=== PATIENT | male | born 1950 | race Caucasian/White ===

== ENCOUNTER 2024-11-09 14:50 | Emergency (ER) | payer SELFPAY ==
--- NOTE | ~2024-11-09 | XR_ITS ---
EXAMINATION: XR chest 1V DATE: 11/09/2024 16:51 INDICATION: Congestive heart failure. TECHNIQUE: A single frontal view of the chest was obtained. COMPARISON: None. FINDINGS: There are airspace opacities at the lung bases. There is a small left pleural effusion. No pneumothorax. Cardiomegaly is noted. Median sternotomy fixation and mediastinal surgical clips are se en, likely from prior coronary artery bypass grafting. There is a left chest pacer/defibrillator with leads in right atrium, right ventricle, and coronary sinus. IMPRESSION: 1. Small left pleural effusion. 2. Airspace opacities at the lung bases, likely atelectasis. 3. Cardiomegaly. Reviewed, dictated and finalized at location A. ULATION MANAGER
--- NOTE | ~2024-11-09 | CT_ITS ---
CT scan of the right lower extremity Clinical history cystic masses distal thigh/medial knee TECHNIQUE: Following intravenous administration of 100 cc of Omnipaque 350 contrast, axial imaging of the right lower extremity was performed from the level of the right pelvis through the right knee. S agittal and coronal reformatted images were constructed. Dose reduction technique was used on this sc an by utilizing automated exposure control and iterative reconstruction technique. The dose-length pr oduct (DLP) was 1295.36 mGy-cm. FINDINGS: No acute fracture or dislocation seen. Total knee arthroplasty hardware in place, without e vidence of hardware complication. Right hip joint is intact. No joint effusion evident. Visualized musculature in the right thigh is essentially unremarkable. Possible mild atrophic changes of the hamstring musculature. There is diffuse subcutaneous soft tissue edema of the thigh. At the medial aspect of the distal thig h, there is a 4.0 x 2.6 x 6.9 cm peripherally enhancing ovoid fluid collection (axial image 194 for e xample). This is just superficial to the distal sartorius muscle belly. There is a probable smaller c ystic mass/fluid collection medial to the level of the knee measuring approximately 1.8 cm in maximum diameter, partially obscured by streak artifact (axial image 235). Small amount of fluid are present along fascial planes in the thigh. There are extensive atherosclerotic changes of the arterial struc tures. Right inguinal hernia contains mesenteric fat and ascitic fluid. Moderate to large amount of ascites present in the visualized pelvis. IMPRESSION: 4.0 x 2.6 x 6.9 cm peripherally enhancing ovoid fluid collection at the medial aspect of the distal t high. Probable additional 1.8 cm cystic mass/fluid collection at the medial aspect of the knee, parti ally obscured by streak artifact. Precise etiology is unclear. Consider abscess versus seroma or othe r cystic collections. Diffuse subcutaneous soft tissue edema thigh, nonspecific. Moderate to large amount of pelvic ascites with right inguinal hernia containing ascitic fluid and fa t. Total knee arthroplasty in place. Reviewed, dictated and finalized at location M. PUMPER IMPRESSION: 4.0 x 2.6 x 6.9 cm peripherally enhancing ovoid fluid collection at the medial aspect of the distal thigh. Probable additional 1.8 cm cystic mass/fluid collec tion at the medial aspect of the knee, partially obscured by streak artifact. P recise etiology is unclear. Consider abscess versus seroma or other cystic day ections. Diffuse subcutaneous soft tissue edema thigh, nonspecific. Moderate to large amount of pelvic ascites with right inguinal hernia containin g ascitic fluid and fat. Total knee arthroplasty in place.
--- NOTE | ~2024-11-09 | US_ITS ---
RIGHT LOWER EXTREMITY VENOUS ULTRASOUND Ordering provider: Mel Meredith History: . Right inner thigh pain . Comparison: None. FINDINGS: --COMMON FEMORAL: Patent and free of thrombus. Normal compressibility, phasic flow and augmentation. --PROXIMAL SUPERFICIAL FEMORAL: Patent and free of thrombus. Normal compressibility, phasic flow and augmentation. --DISTAL SUPERFICIAL FEMORAL: Patent and free of thrombus. Normal compressibility, phasic flow and au gmentation. --POPLITEAL: Patent and free of thrombus. Normal compressibility, phasic flow and augmentation. --POSTERIOR TIBIAL: Patent and free of thrombus. Normal compressibility, phasic flow and augmentation . Cystic area in the distal upper leg measuring 3.2 x 6.8 x 2.5 cm. Cystic area in the medial knee is also noted measuring 2.8 x 1 x 1.8 cm. IMPRESSION: Negative right lower extremity venous US. No deep vein thrombosis. Cystic areas in the lower thigh and medial knee. Reviewed, dictated and finalized at location A. HELPER
[2024-11-09 15:55] VITALS: BP 129/79; PULSE 74; RESP 16; TEMP 36.6; O2SAT 99
--- NOTE | 2024-11-09 15:59 | ED.LOWEXIN ---
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 Patient is at rehab facility and they voiced concerns that the patient may have a DVT given pain to the right inner thigh for a couple of days. Patient denies history of DVT. Reports of extremity edema which is unchanged from baseline. Per chart review he is not on a diuretic and states he should be. Denies hx of CHF. He denies chest pain, lightheadedness or dizziness hemoptysis. Reports shortness of breath that is unchanged from his baseline. GENERAL: Well-appearing, well-nourished, and in no acute distress. HEAD: Normocephalic, atraumatic. CHEST: Clear to auscultation. ?No respiratory distress. EXT: 3+ pitting edema to BLE, tenderness to the right inner thigh on palpation, edema to RLE extends to proximal thigh HEART: Regular rate and rhythm.? NEURO: ?Alert and oriented x3. Patient screened in triage and initial orders placed.? ?Additional care and disposition to be based upon?diagnostic testing and treatment. <HERNAN Rubin Last Filed: 11/09/24 16:01> Related Data Allergies/Adverse Reactions: Allergies Allergy/AdvReac Type Severity Reaction Status Date / Time No Known Allergies Allergy Mild Unverified 11/28/11 18:15 <HERNAN Rubin Last Filed: 11/09/24 16:01> Exam Narrative: APPEARANCE: No apparent distress. Head: atraumatic. EYES: EOMI, NOSE: Atraumatic NECK: Trachea midline RESPIRATORY: No increased rate of breathing CTAB CARDIOVASCULAR: RRR, peripheral edema of the lower extremities there are 2 areas of fluctuance and tenderness over the inside of the thigh and right knee. No overlying erythema or cellulitic changes. ABDOMINAL: Non-distended MUSCULOSKELETAl: No obvious deformities NEURO: Alert. Moving 4/4 extremities SKIN:: Warm, dry. Normal color PSYCHIATRIC: Normal affect <Phill Wellington MD - Last Filed: 11/10/24 06:49> Course Vital Signs Vital signs: Vital Signs Temperature 97.9 F 11/09/24 15:55 Pulse Rate 74 11/09/24 15:55 Respiratory Rate 16 11/09/24 15:55 Blood Pressure 129/79 11/09/24 15:55 Pulse Oximetry 99 11/09/24 15:55 Oxygen Delivery Room Air 11/09/24 15:55 Temperature 97.6 F 11/09/24 19:43 Pulse Rate 84 11/10/24 03:54 Respiratory Rate 18 11/10/24 03:54 Blood Pressure 148/74 H 11/10/24 03:54 Pulse Oximetry 96 11/10/24 03:54 Oxygen Delivery Room Air 11/09/24 15:55 <Mel Meredith PA-C - Last Filed: 11/09/24 16:01> Vital Signs Temperature 97.9 F 11/09/24 15:55 Pulse Rate 74 11/09/24 15:55 Respiratory Rate 16 11/09/24 15:55 Blood Pressure 129/79 11/09/24 15:55 Pulse Oximetry 99 11/09/24 15:55 Oxygen Delivery Room Air 11/09/24 15:55 Temperature 97.6 F 11/09/24 19:43 Pulse Rate 84 11/10/24 03:54 Respiratory Rate 18 11/10/24 03:54 Blood Pressure 148/74 H 11/10/24 03:54 Pulse Oximetry 96 11/10/24 03:54 Oxygen Delivery Room Air 11/09/24 15:55 <Phill Wellington MD - Last Filed: 11/10/24 06:49> MDM - Extremity Injury (Lower) MDM Narrative Medical decision making narrative: -Course: 74-year-old male presenting with leg pain. Physical exam shows 2 fluctuant masses in the soft subcutaneous tissue of his leg. These are confirmed on ultrasound. CT read them as possible seroma versus abscess. Due to diagnostic uncertainty they were drained under sterile conditions. Return of serous fluid. Final diagnosis seroma. Patient discharged. He is educated days these may recur. <Phill Wellington MD - Last Filed: 11/10/24 06:49> Lab Data Result diagrams: 11/09/24 16:45 11/09/24 16:45 <Mel Meredith PA-C - Last Filed: 11/09/24 16:01> Labs: Lab Results 11/09/24 Range/Units 16:45 WBC 6.5 (4.5-10.0) K/mm3 RBC 4.71 (4.6-6.20) M/mm3 Hgb 10.8 L (14.0-18.0) g/dL Hct 35.6 L (42.0-52.0) % MCV 75.6 L (80-100) fl MCH 22.9 L (26-34) pg MCHC 30.3 L (32-36) g/dl RDW 22.6 H (11.5-14.5) % Plt Count 179 (150-375) k/mm3 MPV 9.4 (7.4-10.4) fl Immature Gran % (Auto) 0.3 (0-0.5) % Neut % (Auto) 70.6 (45.5-73.1) % Lymph % (Auto) 14.4 L (18.3-44.2) % [place] % (Auto) 11.0 H (2.6-8.5) % Eos % (Auto) 3.1 (0-4.4) % Baso % (Auto) 0.6 (0.2-1.2) % Lymph # (Auto) 0.93 (0.9-3.2) K/mm3 [place] # (Auto) 0.7 H (0.1-0.6) K/mm3 Eos # (Auto) 0.2 (0-0.3) K/mm3 Baso # (Auto) 0.0 (0.0-0.1) K/mm3 Abs Immat Gran (auto) 0.02 (0.00-0.031) K/mm3 Absolute Neuts (auto) 4.6 (1.3-6.7) K/mm3 Absolute Nucleated RBC 0.000 (0.0-0.012) K/mm3 Nucleated RBC % 0.0 (0.0-0.2) % Platelet Estimate Adequate (Adequate) Anisocytosis 1+ Ovalocytes 1+ Schistocytes None seen PT 16.8 H (11.1-14.7) Seconds INR 1.3 APTT 31.5 (22.3-36.8) Seconds Sodium 137 (137-145) mmol/L Potassium 3.6 (3.4-5.0) mmol/L Chloride 106 (98-107) mmol/L Carbon Dioxide 29 (22-30) mmol/L Anion Gap 2 L (4-12) mmol/L BUN 9 (9-20) mg/dL Creatinine 0.60 L (0.7-1.3) mg/dL Estim Creat Clear Calc 111 ml/min Estimated GFR > 60 (59 - ) Glucose 112 H (65-110) mg/dL Calcium 8.0 L (8.4-10.2) mg/dL NT-Pro-B Natriuret Pep 2660 H (19.9-100) pg/mL <Mel Meredith PA-C - Last Filed: 11/09/24 16:01> Lab Results 11/09/24 Range/Units 16:45 WBC 6.5 (4.5-10.0) K/mm3 RBC 4.71 (4.6-6.20) M/mm3 Hgb 10.8 L (14.0-18.0) g/dL Hct 35.6 L (42.0-52.0) % MCV 75.6 L (80-100) fl MCH 22.9 L (26-34) pg MCHC 30.3 L (32-36) g/dl RDW 22.6 H (11.5-14.5) % Plt Count 179 (150-375) k/mm3 MPV 9.4 (7.4-10.4) fl Immature Gran % (Auto) 0.3 (0-0.5) % Neut % (Auto) 70.6 (45.5-73.1) % Lymph % (Auto) 14.4 L (18.3-44.2) % [place] % (Auto) 11.0 H (2.6-8.5) % Eos % (Auto) 3.1 (0-4.4) % Baso % (Auto) 0.6 (0.2-1.2) % Lymph # (Auto) 0.93 (0.9-3.2) K/mm3 [place] # (Auto) 0.7 H (0.1-0.6) K/mm3 Eos # (Auto) 0.2 (0-0.3) K/mm3 Baso # (Auto) 0.0 (0.0-0.1) K/mm3 Abs Immat Gran (auto) 0.02 (0.00-0.031) K/mm3 Absolute Neuts (auto) 4.6 (1.3-6.7) K/mm3 Absolute Nucleated RBC 0.000 (0.0-0.012) K/mm3 Nucleated RBC % 0.0 (0.0-0.2) % Platelet Estimate Adequate (Adequate) Anisocytosis 1+ Ovalocytes 1+ Schistocytes None seen PT 16.8 H (11.1-14.7) Seconds INR 1.3 APTT 31.5 (22.3-36.8) Seconds Sodium 137 (137-145) mmol/L Potassium 3.6 (3.4-5.0) mmol/L Chloride 106 (98-107) mmol/L Carbon Dioxide 29 (22-30) mmol/L Anion Gap 2 L (4-12) mmol/L BUN 9 (9-20) mg/dL Creatinine 0.60 L (0.7-1.3) mg/dL Estim Creat Clear Calc 111 ml/min Estimated GFR > 60 (59 - ) Glucose 112 H (65-110) mg/dL Calcium 8.0 L (8.4-10.2) mg/dL NT-Pro-B Natriuret Pep 2660 H (19.9-100) pg/mL <Phill Wellington MD - Last Filed: 11/10/24 06:49> Discharge Plan Discharge Clinical Impression: Seroma <Mel Meredith PA-C - Last Filed: 11/09/24 16:01> Patient Disposition: Home, Self-Care <Mel Meredith PA-C - Last Filed: 11/09/24 16:01> Condition: Stable <Mel Meredith PA-C - Last Filed: 11/09/24 16:01> Instructions: Antibiotic Form, Seroma (DC) <Mel Meredith PA-C - Last Filed: 11/09/24 16:01> Additional Instructions: You were seen in the emergency department for leg pain. Your found to have 2 cysts filled with fluid. These were drained via needle aspiration. No evidence of infection at this time. The cysts may recur and become painful. Please follow-up with your primary care physician if needed. If your leg becomes red, painful or you develop fevers please return to the ED for re-evaluation. <Mel Meredith PA-C - Last Filed: 11/09/24 16:01> Patient Language: Slovak <Mel Meredith PA-C - Last Filed: 11/09/24 16:01> Follow-up/Referrals: PHYSICIAN,DESPATCHING AND RECEIVING CLERK [Primary Care Provider] - <Mel Meredith PA-C - Last Filed: 11/09/24 16:01>
--- NOTE | 2024-11-09 16:00 | ECG_ITS ---
Test Date: 2024-11-09 16:45:46 Measurements Intervals [place] Rate: 72 P: 4 MN: 130 QRS: -84 QRSD: 150 T: 110 QT: 443 QTc: 488 Interpretive Statements ELECTRONIC VENTRICULAR PACEMAKER ABNORMAL RHYTHM ECG No previous ECG available for comparison Electronically Signed On 11-13-2024 14:36:00 [employer]OLD SHIFTER by Jayden Clemons M.D.
[2024-11-09 16:51] LABS: Basophils Percent Auto 0.6 % (0.2-1.2); Eosinophils Absolute Auto 0.2 K/mm3 (0-0.3); Eosinophils Percent Auto 3.1 % (0-4.4); Hematocrit 35.6 % (42.0-52.0); Hemoglobin 10.8 g/dL (14.0-18.0); Immature Granulocyte Absolute 0.02 K/mm3 (0.00-0.031); Immature Granulocyte Percent A 0.3 % (0-0.5); Lymphocytes Absolute Auto 0.93 K/mm3 (0.9-3.2); Lymphocytes Percent Auto 14.4 % (18.3-44.2); Mean Corpuscular HGB Conc 30.3 g/dl (32-36); Mean Corpuscular Hemoglobin 22.9 pg (26-34); Mean Corpuscular Volume 75.6 fl (80-100); Mean Platelet Volume 9.4 fl (7.4-10.4); Monocytes Absolute Auto 0.7 K/mm3 (0.1-0.6); Neutrophils Absolute Auto 4.6 K/mm3 (1.3-6.7); Neutrophils Percent Auto 70.6 % (45.5-73.1); Platelet Count Result 179 k/mm3 (150-375); Red Blood Count 4.71 M/mm3 (4.6-6.20); Red Cell Distribution Width 22.6 % (11.5-14.5); White Blood Count 6.5 K/mm3 (4.5-10.0)
[2024-11-09 17:01] LABS: Anion Gap 2 mmol/L (4-12); Blood Urea Nitrogen 9 mg/dL (9-20); Carbon Dioxide 29 mmol/L (22-30); Chloride 106 mmol/L (98-107); Estimated CRCL calculation 111 ml/min; Estimated Glomerular Filt Rate > 60; Glucose 112 mg/dL (65-110); Potassium 3.6 mmol/L (3.4-5.0); Sodium 137 mmol/L (137-145)
[2024-11-09 17:02] LABS: INR 1.3; Prothrombin Time 16.8 Seconds (11.1-14.7)
[2024-11-09 17:03] LABS: Partial Thromboplastin Time 31.5 Seconds (22.3-36.8)
[2024-11-09 17:09] LABS: Anisocytosis 1+; Ovalocytes 1+; Platelet Estimate Adequate (Adequate)
[2024-11-09 17:10] LABS: NT Pro B Type Natriuretic Pept 2660 pg/mL (19.9-100); Schistocytes None Seen
[2024-11-09 19:43] VITALS: BP 135/80; PULSE 78; RESP 16; TEMP 36.4; O2SAT 100
[2024-11-09 23:37] VITALS: BP 150/86; PULSE 75; RESP 16; O2SAT 99
[2024-11-10 00:45] VITALS: BP 160/92; PULSE 85; RESP 16; O2SAT 97
[2024-11-10 03:54] VITALS: BP 148/74; PULSE 84; RESP 18; O2SAT 96
[2024-11-10 06:46] VITALS: BP 142/78; PULSE 84; RESP 17; O2SAT 98
[2024-11-10 07:50] VITALS: BP 148/80; PULSE 70; RESP 16; O2SAT 92
--- OUTSIDE RECORDS SUMMARY | 2024-11-17 03:41 | XMS_ITS | Continuity of Care Document ---
Author Name [facility] Organization [facility] Care Team Providers Care Psychometric Examiner Name Role Phone [facility] Unavailable Unavailable Problems Combined list of problems from Department of Defense and [facility] Affairs facilities. It does not include entries that were removed or entered in error. 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 [facility] Asthma (SNOMED CT 420040250) Active Condition [facility] Coronary artery disease Active Condition [facility] Diabetes mellitus with neuropathy Active Condition [facility] Erectile dysfunction associated with type 2 diabetes mellitus Active Condition [facility] Exposure to potentially hazardous substance Active Condition [facility] Fatty liver Active Condition [facility] Gastro-esophageal reflux disease (SNOMED CT 658725513) Active Condition [facility] Heart failure Active Condition [facility] History of arthroplasty of right knee Active Condition [facility] History of coronary artery bypass grafting Active Condition [facility] History of left total knee replacement Active Condition [facility] Hyperlipidemia (SNOMED CT 62769555) Active Condition [facility] Hypertension (SNOMED CT 52507257) Active Condition [facility] Low back pain Active Condition [facility] Neoplasm of pituitary gland (SNOMED CT 063239892) Active Condition [facility] Obesity Active Condition [facility] Obstructive Sleep Apnea of Adult (SCT 0757788657522) Active Condition [facility] Osteoarthritis of knee Active Condition [facility] Patellofemoral syndrome of right knee Active Condition [facility] Peptic Ulcer Disease * (ICD-9-CM 533.90) Active Condition [facility] Thrombocytopenia Active Condition [facility] Diagnosis: ICD-10-CM G47.33 Obstructive sleep apnea (adult) (pediatric) Active Diagnosis [facility] Diagnosis: ICD-10-CM D69.6 Thrombocytopenia, unspecified Active Diagnosis [facility] Diagnosis: ICD-10-CM 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 Active Diagnosis [facility] Diagnosis: ICD-10-CM 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 Admit Reason: CAD S/P CABG Active Diagnosis [facility] Diagnosis: ICD-10-CM R06.00 Dyspnea, unspecified Active Diagnosis [facility] Diagnosis: ICD-10-CM I34.0 Nonrheumatic mitral (valve) insufficiency Active Diagnosis [facility] Diagnosis: ICD-10-CM I50.9 Heart failure, unspecified Active Diagnosis [facility] Diagnosis: ICD-10-CM H25.813 Combined forms of age-related cataract, bilateral Active Diagnosis [facility] Diagnosis: ICD-10-CM E23.7 Disorder of pituitary gland, unspecified Active Diagnosis [facility] Diagnosis: ICD-10-CM B35.1 Tinea unguium Active Diagnosis 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 Active Diagnosis [facility] Diagnosis: ICD-10-CM E11.9 Type 2 diabetes mellitus without complications Active Diagnosis [facility] Diagnosis: ICD-10-CM M25.569 Pain in unspecified knee Active Diagnosis [facility] Diagnosis: ICD-10-CM M48.062 Spinal stenosis, lumbar region with neurogenic claudication Active Diagnosis [facility] Diagnosis: ICD-10-CM Z01.20 Encounter for dental exam and cleaning w/o abnormal findings Active Diagnosis [facility] Diagnosis: ICD-10-CM Z71.89 Other specified counseling Active Diagnosis [facility] Diagnosis: ICD-10-CM K03.6 Deposits [accretions] on teeth Active Diagnosis [facility] Diagnosis: ICD-10-CM Z96.652 Presence of left artificial knee joint Active Diagnosis [facility] Diagnosis: ICD-10-CM L85.9 Epidermal thickening, unspecified Active Diagnosis [facility] Diagnosis: ICD-10-CM Z23 Encounter for immunization Active Diagnosis [facility] Diagnosis: ICD-10-CM E23.6 Other disorders of pituitary gland Active Diagnosis [facility] Diagnosis: ICD-10-CM D35.2 Benign neoplasm of pituitary gland Active Diagnosis [facility] Diagnosis: ICD-10-CM 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 Active Diagnosis [facility] Diagnosis: ICD-10-CM 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, lumbar region Active Diagnosis [facility] Diagnosis: ICD-10-CM K02.62 Dental caries on smooth surface penetrating into dentin Active Diagnosis [facility] Diagnosis: ICD-10-CM M54.51 Vertebrogenic low back pain Active Diagnosis [facility] Diagnosis: ICD-10-CM H11.32 Conjunctival hemorrhage, left eye Active Diagnosis [facility] Diagnosis: ICD-10-CM E11.8 Type 2 diabetes mellitus with unspecified complications Active Diagnosis [facility] Diagnosis: ICD-10-CM E11.3292 Type 2 diab with mild nonp rtnop without mclr edema, l eye Active Diagnosis [facility] Medications Combined list of outpatient medications from Department of Defense and [facility] Affairs facilities.Medications provided include 1) outpatient medications from the last 15 months, and 2) patient-reported medications. Medication Details Route Status Patient Instructions Prescription Expires Prescription Number Last Dispense Date Ordering Provider Order Date Order Qty Source ALBUTEROL SO4 90MCG/ACTUA T (CFC-F) INHL,ORAL,8 .5GM INHALE 1 PUFF BY ORAL INHALATI ON FOUR TIMES A DAY NEEDED FOR BREATHIN G. SHAKE WELL. RINSE MOUTHPIE CE FREQUENT LY TO PREVENT CLOGGING . RESPIR ATORY (INHAL ATION) ACTIVE 04/08/2025 [id number] 4 FRANCIS OQUENDO 2023 2 [facility] AMMONIUM LACTATE 12% CREAM,TOP APPLY LIGHTLY TO AFFECTED AREA(S) TWICE A DAY EXTERNAL USE ONLY. DO NOT APPLY TO RED, ITCHY, OR SORE SKIN. DAVIDA L DISCONT INUED BY PROVIDE R 02/11/2025 [id number] 4 SA JAYJAY BRAGG 2023 140 [facility] ASPIRIN 81MG TAB,EC TAKE ONE TABLET BY MOUTH ONCE A DAY TAKE WITH FOOD. ORAL ACTIVE 08/23/2025 [id number] 4 Sofy REDDY 2023 120 [facility] ASPIRIN 81MG TAB,EC TAKE ONE TABLET BY MOUTH ONCE A DAY TAKE WITH FOOD. ORAL DISCONT INUED BY PROVIDE R 06/08/2025 [id number] 4 MARY SERNA 2023 120 [facility] ATORVASTATI N CA 40MG TAB TAKE ONE AND ONE-HALF TABLETS BY MOUTH EVERY EVENING ORAL DISCONT INUED (EDIT) 06/08/2025 [id number] 4 MARY SERNA 2023 135 [facility] ATORVASTATI N CA 80MG TAB TAKE ONE TABLET BY MOUTH EVERY EVENING ORAL ACTIVE 08/23/2025 [id number] 4 Sofy REDDY 2023 90 [facility] ATORVASTATI N CA 80MG TAB TAKE ONE-HALF TABLET BY MOUTH EVERY EVENING FOR HIGH CHOLESTE ROL ORAL DISCONT INUED (EDIT) 04/08/2025 [id number] 4 FRANCIS OQUENDO 2023 45 [facility] ATORVASTATI N CA 80MG TAB TAKE ONE-HALF TABLET BY MOUTH EVERY EVENING FOR HIGH CHOLESTE ROL ORAL DISCONT INUED 03/22/2024 [id number] 4 SAAD YOUNGER 2022 45 [facility] BUMETANIDE 1MG TAB TAKE ONE-HALF TABLET BY MOUTH ONCE A DAY NEEDED PER PROVIDER INSTRUCT IONS ORAL DISCONT INUED BY FLORIAN R 06/08/2025 [id number] 4 MARY SERNA 2023 45 [facility] CARBOXYMETH YLCELLULOSE NA 0.5% SOLN,OPH INSTILL 1 DROP IN BOTH EYES FOUR TIMES A DAY NEEDED FOR DRY EYE(S) OPHTHA LMIC ACTIVE 05/13/2025 [id number] 4 ESTELA ESPINOZA 2023 30 [facility] CARVEDILOL 6.25MG TAB TAKE ONE-HALF TABLET BY MOUTH TWICE A DAY HEART FAILURE TAKE WITH FOOD. ORAL ACTIVE 06/08/2025 [id number] 4 MARY SERNA 2023 90 [facility] CLOPIDOGREL BISULFATE 75MG TAB TAKE ONE TABLET BY MOUTH ONCE A DAY ORAL ACTIVE 08/23/2025 [id number] 4 Sofy REDDY 2023 90 [facility] DEXTROSE 24GM/31GM SQUEEZE TUBE TAKE 1 TUBE BY MOUTH NEEDED FOR LOW BLOOD SUGAR REPEAT DOSE IF HYPOGLYC EMIA CONTINUE S 15 MINUTES AFTER THE FIRST DOSE. ORAL ACTIVE 01/24/2025 [id number] 4 LUCIA COLLADO 2023 3 [facility] DULOXETINE HCL 60MG CAP,EC TAKE ONE CAPSULE BY MOUTH ONCE A DAY FOR NERVE PAIN DO NOT ABRUPTLY DISCONTI NUE MEDICATI ON. ORAL ACTIVE 04/08/2025 [id number] 4 FRANCIS OQUENDO 2023 90 [facility] DULOXETINE HCL 60MG CAP,EC TAKE ONE CAPSULE BY MOUTH ONCE A DAY FOR NERVE PAIN DO NOT ABRUPTLY DISCONTI NUE MEDICATI ON. ORAL DISCONT INUED 03/22/2024 [id number] 4 SAAD YOUNGER S 2022 90 [facility] ERGOCALCIFE ROL 1,250MCG (50,000UNIT ) CAP TAKE ONE CAPSULE BY MOUTH WEEKLY ORAL 10/21/2024 [id number] 4 Sofy REDDY 2023 6 [facility] FERROUS SO4 325MG TAB TAKE ONE TABLET BY MOUTH ONCE A DAY ORAL ACTIVE 08/23/2025 [id number] 4 Sofy REDDY 2023 100 [facility] FOLIC ACID 1MG TAB TAKE ONE TABLET BY MOUTH ONCE A DAY ORAL ACTIVE 08/23/2025 [id number] 4 Sofy REDDY 2023 100 [facility] PRANAV Ramirez GLUCOSE 4GM TAB,CHEW CHEW AND SWALLOW FOUR TABLETS BY MOUTH NEEDED FOR LOW BLOOD SUGAR REPEAT DOSE IF HYPOGLYC EMIA CONTINUE S 15 MINUTES AFTER THE FIRST DOSE. ORAL DISCONT INUED BY PROVIDE R 02/16/2024 [id number] 4 LUCIA COLLADO 2023 50 [facility] HYDROCHLORO THIAZIDE 12.5MG/BLANCHE NOPRIL 20MG TAB TAKE 2 TABLETS BY MOUTH EVERY MORNING TO LOWER BLOOD PRESSURE ORAL DISCONT INUED BY PROVIDE R 02/02/2025 [id number] 4 FRANCIS OQUENDO 2023 180 [facility] HYDROCHLORO THIAZIDE 12.5MG/BLANCHE NOPRIL 20MG TAB TAKE 2 TABLETS BY MOUTH EVERY MORNING TO LOWER BLOOD PRESSURE ORAL DISCONT INUED 03/22/2024 [id number] 3 SAAD YOUNGER 2022 180 [facility] HYDROPHILIC (EQV EUCERIN) CREAM,TOP APPLY LIBERALL Y TO AFFECTED AREA(S) ONCE A DAY (EXTERNA L USE ONLY) DRY BETWEEN TOES AFTER APPLYING . TOPICA L 12/10/2023 [id number] 3 NADIRA BUSBY 2022 454 [facility] INSULIN,ASP ART,HUMAN (EQV-NOVOLO G) 100 UNIT/ML,FLE XPEN,3ML INJECT 6 UNITS UNDER THE SKIN BEFORE SUPPER FOR DIABETES ADMINIST ER 10 MINUTES BEFORE FOOD DIRECTED . REFRIGER ATE UN-OPENE D PENS. DISCARD CARTRIDG E 28 DAYS AFTER OPENING. SUBCUT ANEOUS DISCONT INUED BY PROVIDE R 02/17/2025 [id number] 4 LUCIA COLLADO 2023 5 [facility] INSULIN,ASP ART,HUMAN (EQV-NOVOLO G) 100 UNIT/ML,FLE XPEN,3ML INJECT 6 UNITS UNDER THE SKIN ONCE A DAY BEFORE DINNER FOR DIABETES ADMINIST ER 10 MINUTES BEFORE FOOD DIRECTED . REFRIGER ATE UN-OPENE D PENS. DISCARD CARTRIDG E 28 DAYS AFTER OPENING. SUBCUT ANEOUS 02/16/2024 [id number] 4 LUCIA COLLADO 2023 5 [facility] INSULIN,GLA RGINE,HUMAN (TOUJEO MAX) 300 UNIT/ML INJ,3ML INJECT 90 UNITS UNDER THE SKIN ONCE A DAY FOR DIABETES ADMINIST ER AT SAME TIME EACH DAY DIRECTED . DISCARD ANY OPEN CARTRIDG E AFTER 42 DAYS. *HIGH DOSE INSULIN* SUBCUT ANEOUS DISCONT INUED BY PROVIDE R 11/18/2024 [id number] 4 LUCIA COLLADO 2023 8 [facility] INSULIN,GLA RGINE,HUMAN (TOUJEO MAX) 300 UNIT/ML INJ,3ML INJECT 100 UNITS UNDER THE SKIN ONCE A DAY FOR DIABETES ADMINIST ER AT SAME TIME EACH DAY DIRECTED . DISCARD ANY OPEN CARTRIDG E AFTER 42 DAYS. *HIGH DOSE INSULIN* SUBCUT ANEOUS DISCONT INUED (EDIT) 07/02/2024 [id number] 3 LUCIA COLLADO 2022 6 [facility] ISOSORBIDE MONONITRATE 30MG TAB,SA TAKE ONE-HALF TABLET BY MOUTH ONCE A DAY TAKE ON EMPTY STOMACH. SWALLOW WHOLE. DO NOT CRUSH OR CHEW. ORAL ACTIVE 08/23/2025 [id number] 4 Sofy REDDY 2023 45 [facility] LIDOCAINE 5% PATCH APPLY 1 PATCH TO SKIN SITE ONCE A DAY NEEDED FOR LOCAL ANESTHES IA APPLY PATCH AND PRESS FIRMLY FOR 10-15 SECONDS. KEEP ON FOR 12 HOURS THEN REMOVE PATCH FOR 12 HOURS. TRANSD ERMAL 03/22/2024 [id number] 4 SAAD YOUNGER 2022 30 [facility] MAGNESIUM OXIDE 400MG TAB TAKE ONE TABLET BY MOUTH TWICE A DAY ORAL ACTIVE 08/23/2025 [id number] 4 Sofy REDDY 2023 240 [facility] MELOXICAM 7.5MG TAB TAKE ONE TABLET BY MOUTH ONCE A DAY NEEDED FOR OSTEOART HRITIS ORAL DISCONT INUED BY PROVIDE R 02/02/2025 [id number] 4 FRANCIS OQUENDO 2023 90 [facility] METFORMIN HCL 500MG 24HR TAB,SA TAKE TWO TABLETS BY MOUTH TWICE A DAY FOR BLOOD SUGAR CONTROL. TAKE WITH FOOD. AVOID ALCOHOL. DISCONTI NUE BEFORE GETTING XRAY DYE. ORAL DISCONT INUED (EDIT) 02/02/2025 [id number] 4 FRANCIS OQUENDO 2023 360 [facility] METFORMIN HCL 500MG 24HR TAB,SA TAKE TWO TABLETS BY MOUTH TWICE A DAY FOR BLOOD SUGAR CONTROL. TAKE WITH FOOD. AVOID ALCOHOL. DISCONTI NUE BEFORE GETTING XRAY DYE. ORAL DISCONT INUED 03/22/2024 [id number] 3 SAAD YOUNGER 2022 360 [facility] METFORMIN HCL 750MG 24HR TAB,SA TAKE ONE TABLET BY MOUTH ONCE A DAY FOR BLOOD SUGAR CONTROL. TAKE WITH FOOD. AVOID ALCOHOL. DISCONTI NUE BEFORE GETTING XRAY DYE. ORAL ACTIVE 08/23/2025 [id number] 4 Sofy REDDY 2023 90 [facility] METHOCARBAM OL 500MG TAB TAKE 1 TABLET BY MOUTH TWICE DAILY NEEDED FOR MUSCLE SPASM ORAL 09/09/2024 [id number] 3 LUIZ HENDRIX 2022 120 [facility] MULTIVITAMI NS CAP/TAB TAKE 1 TABLET BY MOUTH ONCE A DAY FOR NUTRITIO N/DIETAR Y SUPPLEME NTATION ORAL ACTIVE 11/18/2024 [id number] 4 LUCIA COLLADO 2023 100 [facility] OMEPRAZOLE 20MG CAP,EC TAKE ONE CAPSULE BY MOUTH EVERY MORNING TO LOWER STOMACH ACID. TAKE 30 MINUTES PRIOR TO FOOD. ORAL DISCONT INUED (EDIT) 01/30/2025 [id number] 4 ANA BAIRD EI 2023 90 [facility] OMEPRAZOLE 20MG CAP,EC TAKE ONE CAPSULE BY MOUTH EVERY MORNING TO LOWER STOMACH ACID. TAKE 30 MINUTES PRIOR TO FOOD. ORAL DISCONT INUED 12/01/2023 [id number] 3 ANA BAIRD EI 2022 90 [facility] OMEPRAZOLE 40MG CAP,EC TAKE ONE CAPSULE BY MOUTH EVERY MORNING TO LOWER STOMACH ACID. TAKE 30 MINUTES PRIOR TO FOOD. ORAL ACTIVE 08/23/2025 [id number] 4 Sofy REDDY 2023 90 [facility] PREGABALIN 100MG CAP,ORAL TAKE ONE CAPSULE BY MOUTH TWICE A DAY *MAY CAUSE DROWSINE SS* ORAL ACTIVE 02/22/2025 [id number] 4 MARIE RAMSAY ANGELIQUE 2023 60 [facility] PREGABALIN 200MG CAP,ORAL TAKE ONE CAPSULE BY MOUTH TWICE A DAY ORAL DISCONT INUED 08/04/2024 [id number] 4 ANA BAIRD EI 2023 60 [facility] SACUBITRIL 24MG/VALSAR MATT 26MG TAB TAKE 1 TABLET BY MOUTH TWICE A DAY FOR HEART FAILURE ORAL DISCONT INUED BY PROVIDE R 06/08/2025 [id number] 4 MARY SERNA 2023 180 [facility] Ramirez SEMAGLUTIDE 1MG/0.75ML INJ,SOLN,PE N,3ML INJECT 1MG UNDER THE SKIN EVERY WEEK FOR DIABETES SUBCUT ANEOUS DISCONT INUED BY PROVIDE R 05/02/2025 [id number] 4 LUCIA COLLADO 2023 3 [facility] SEMAGLUTIDE 1MG/0.75ML INJ,SOLN,PE N,3ML INJECT 1MG UNDER THE SKIN EVERY WEEK FOR DIABETES SUBCUT ANEOUS DISCONT INUED 05/03/2024 [id number] 4 LUCIA COLLADO 2022 3 [facility] VITAMIN A/VITAMIN D OINT,TOP APPLY LIBERALL Y TO AFFECTED AREA(S) TWICE DAILY TOPICA L ACTIVE 08/24/2025 [id number] 4 Sofy REDDY 2023 425 [facility] James Allergies, Adverse Reactions, Alerts Combined list of allergies from Department of Defense and Veterans Affairs facilities. It does not include entries that were removed or entered in error. Substance Category Reaction Severity Reaction type Status Date Reported Comments Source TRAMADOL Propensity to adverse reactions to drug (finding) Nausea and vomiting active 2 [facility] Immunizations Combined list of available immunizations from the Department of Defense and Veterans Affairs facilities. Immunization Series Date Given Administered By Site Reaction Lot Number CVX Code Drug Braided Band Assembler Status Comments Source COVID-19 (PFIZER), MRNA, LNP-S, PF, LAWANDA-SUCROSE, 30 MCG/0.3 ML (AGES 12+ YEARS) 1 2023 RANI BARROS LEFT DELTO ID [id number] 309 complet ed [facility] ZOSTER RECOMBINANT 2 2021 187 complet ed [facility] COVID-19 (PFIZER), MRNA, LNP-S, BIVALENT BOOSTER, PF, 30 MCG/0.3 ML DOSE 1 2021 300 complet ed PFR; [id number]; 3 [facility] ZOSTER RECOMBINANT 1 2021 187 complet ed [facility] COVID-19 (PFIZER), MRNA, LNP-S, PF, 30 MCG/0.3 ML DOSE 3 2021 208 complet ed PFR; [id number]; 2 [facility] COVID-19 (PFIZER), MRNA, LNP-S, PF, 30 MCG/0.3 ML DOSE 2 2020 208 complet ed PFR; [id number]; 1 [facility] COVID-19 (PFIZER), MRNA, LNP-S, PF, 30 MCG/0.3 ML DOSE 1 2020 208 complet ed PFR; [id number]; 1 [facility] TD(ADULT) UNSPECIFIED FORMULATION 2019 139 complet ed Right Deltoid [facility] PNEUMOCOCCAL POLYSACCHARID E PPV23 2018 33 complet ed [facility] PNEUMOCOCCAL CONJUGATE PCV 13 2016 133 complet ed [facility] ZOSTER LIVE 2015 121 complet ed [facility] INFLUENZA, UNSPECIFIED FORMULATION 2011 88 complet ed [facility] TDAP 2008 115 complet ed [facility] INFLUENZA, UNSPECIFIED FORMULATION 2005 88 complet ed [facility] PNEUMOCOCCAL, UNSPECIFIED FORMULATION 2005 109 complet ed [facility] Results Combined list of recent chemistry, hematology and other laboratory results from Department of Defense and Veterans Affairs, ranging from 15 months to all on record, depending upon the facility. Order Name Results Value Reference Range Date Interpretation Specimen Comments Source CBC LEUKOCYTES [#/VOLUME] IN BLOOD BY AUTOMATED COUNT 4.0 10*3/uL 3.6 - 11.2 08/23 Specimen Type: BLOOD No comment entered. Ordering Provider: RA BRITTANY REDDY Report Released Date/Time: Aug 22, 2024 11:19 AM Reporting Lab: [facility] [place] [address] Performing Lab: [facility] DIVISION CBC ERYTHROCYT ES [#/VOLUME] IN BLOOD BY AUTOMATED COUNT 3.65 10*6/uL 4.10 - 5.70 08/23 L Specimen Type: BLOOD No comment entered. Ordering Provider: RA BRITTANY REDDY Report Released Date/Time: Aug 22, 2024 11:19 AM Reporting Lab: [facility] [id number] Performing Lab: [facility] DIVISION CBC HEMOGLOBIN [MASS/VOLU ME] IN BLOOD 8.6 g/dL 13.1 - 16.8 08/23 L Specimen Type: BLOOD No comment entered. Ordering Provider: RA BRITTANY REDDY Report Released Date/Time: Aug 22, 2024 11:19 AM Reporting Lab: [facility] [phone] Performing Lab: [facility] [id number] [place] [address] DIVISION CBC HEMATOCRIT [VOLUME FRACTION] OF BLOOD 29.0 38.2 - 48.4 08/23 L Specimen Type: BLOOD No comment entered. Ordering Provider: RA BRITTANY REDDY Report Released Date/Time: Aug 22, 2024 11:19 AM Reporting Lab: [facility] [place] [phone] Performing Lab: [facility] DIVISION CBC MCV [ENTITIC VOLUME] BY AUTOMATED COUNT 79.5 fL 80.0 - 100.0 08/23 L Specimen Type: BLOOD No comment entered. Ordering Provider: RA BRITTANY REDDY Report Released Date/Time: Aug 22, 2024 11:19 AM Reporting Lab: [facility] [place] [address] Performing Lab: [facility] DIVISION CBC MCH [ENTITIC MASS] BY AUTOMATED COUNT 23.6 pg 27.0 - 34.0 08/23 L Specimen Type: BLOOD No comment entered. Ordering Provider: RA BRITTANY REDDY Report Released Date/Time: Aug 22, 2024 11:19 AM Reporting Lab: [facility] [place] [address] Performing Lab: [facility] DIVISION CBC MCHC [MASS/VOLU ME] BY AUTOMATED COUNT 29.7 g/dL 33.0 - 36.0 08/23 L Specimen Type: BLOOD No comment entered. Ordering Provider: RA BRITTANY REDDY Report Released Date/Time: Aug 22, 2024 11:19 AM Reporting Lab: [facility] [place] [address] Performing Lab: [facility] [address] [facility] CBC PLATELETS [#/VOLUME] IN BLOOD BY AUTOMATED COUNT 134 10*3/uL 150 - 400 08/23 L Specimen Type: BLOOD No comment entered. Ordering Provider: RA BRITTANY REDDY Report Released Date/Time: Aug 22, 2024 11:19 AM Reporting Lab: [facility] [place] [address] Performing Lab: [facility] [place] [id number] CBC PLATELET MEAN VOLUME [ENTITIC VOLUME] IN BLOOD BY AUTOMATED COUNT 9.6 fL 7.5 - 11.2 08/23 Specimen Type: BLOOD No comment entered. Ordering Provider: RA BRITTANY REDDY Report Released Date/Time: Aug 22, 2024 11:19 AM Reporting Lab: [facility] [place] [address] Performing Lab: [facility] CBC ERYTHROCYT E DISTRIBUTI ON WIDTH [RATIO] BY AUTOMATED COUNT 16.1 11.8 - 15.1 08/23 H Specimen Type: BLOOD No comment entered. Ordering Provider: RA BRITTANY REDDY Report Released Date/Time: Aug 22, 2024 11:19 AM Reporting Lab: [facility] [place] [address] Performing Lab: [facility] DIVISION CBC LYMPHOCYTE S/100 LEUKOCYTES IN BLOOD BY AUTOMATED COUNT 27 08/23 Specimen Type: BLOOD No comment entered. Ordering Provider: RA BRITTANY REDDY Report Released Date/Time: Aug 22, 2024 11:19 AM Reporting Lab: [facility] [place] [address] Performing Lab: [facility] [place] [facility] CBC MONOCYTES/ 100 LEUKOCYTES IN BLOOD BY AUTOMATED COUNT 10 08/23 Specimen Type: BLOOD No comment entered. Ordering Provider: RA BRITTANY REDDY Report Released Date/Time: Aug 22, 2024 11:19 AM Reporting Lab: [facility] [place] [address] Performing Lab: [facility] DIVISION CBC NEUTROPHIL S/100 LEUKOCYTES IN BLOOD BY AUTOMATED COUNT 50 08/23 Specimen Type: BLOOD No comment entered. Ordering Provider: RA BRITTANY REDDY Report Released Date/Time: Aug 22, 2024 11:19 AM Reporting Lab: [facility] [place] [address] Performing Lab: [facility] DIVISION CBC EOSINOPHIL S/100 LEUKOCYTES IN BLOOD BY AUTOMATED COUNT 12 08/23 Specimen Type: BLOOD No comment entered. Ordering Provider: RA BRITTANY REDDY Report Released Date/Time: Aug 22, 2024 11:19 AM Reporting Lab: [facility] [place] [address] Performing Lab: [facility] DIVISION CBC BASOPHILS/ 100 LEUKOCYTES IN BLOOD BY AUTOMATED COUNT 1 08/23 Specimen Type: BLOOD No comment entered. Ordering Provider: RA BRITTANY REDDY Report Released Date/Time: Aug 22, 2024 11:19 AM Reporting Lab: [facility] [place] [address] Performing Lab: [facility] DIVISION CBC LYMPHOCYTE S [#/VOLUME] IN BLOOD BY AUTOMATED COUNT 1.06 10*3/uL 0.77 - 4.50 08/23 Specimen Type: BLOOD No comment entered. Ordering Provider: RA BRITTANY REDDY Report Released Date/Time: Aug 22, 2024 11:19 AM Reporting Lab: [facility] [place] [address] Performing Lab: [facility] DIVISION CBC MONOCYTES [#/VOLUME] IN BLOOD BY AUTOMATED COUNT 0.38 10*3/uL 0.19 - 0.80 08/23 Specimen Type: BLOOD No comment entered. Ordering Provider: RA BRITTANY REDDY Report Released Date/Time: Aug 22, 2024 11:19 AM Reporting Lab: [facility] [place] [address] Performing Lab: [facility] DIVISION CBC NEUTROPHIL S [#/VOLUME] IN BLOOD BY AUTOMATED COUNT 1.99 10*3/uL 2.10 - 8.00 08/23 L Specimen Type: BLOOD No comment entered. Ordering Provider: RA BRITTANY REDDY Report Released Date/Time: Aug 22, 2024 11:19 AM Reporting Lab: [facility] [place] [address] Performing Lab: [facility] DIVISION CBC EOSINOPHIL S [#/VOLUME] IN BLOOD BY AUTOMATED COUNT 0.47 10*3/uL 0.00 - 0.60 08/23 Specimen Type: BLOOD No comment entered. Ordering Provider: RA BRITTANY REDDY Report Released Date/Time: Aug 22, 2024 11:19 AM Reporting Lab: [facility] [place] [address] Performing Lab: [facility] [facility] CBC BASOPHILS [#/VOLUME] IN BLOOD BY AUTOMATED COUNT 0.04 10*3/uL 0.00 - 0.20 08/23 Specimen Type: BLOOD No comment entered. Ordering Provider: RA BRITTANY REDDY Report Released Date/Time: Aug 22, 2024 11:19 AM Reporting Lab: [facility] [place] [address] Performing Lab: [facility] MAGNESIUM MAGNESIUM [MASS/VOLU ME] IN SERUM OR PLASMA 1.8 mg/dL 1.6 - 2.6 08/23 Specimen Type: PLASMA No comment entered. Ordering Provider: RA BRITTANY REDDY Report Released Date/Time: Aug 22, 2024 11:26 AM Reporting Lab: [facility] [place] [address] Performing Lab: [facility] GLUCOSE,B LOOD-poct (STL) GLUCOSE [MASS/VOLU ME] IN BLOOD BY AUTOMATED TEST STRIP 99 mg/dL 72 - 99 08/23 Specimen Type: BLOOD Comment: Test Performed by: [id number] Meter #: [id number] Ordering Provider: RA BRITTANY REDDY Report Released Date/Time: Aug 23, 2024 05:23 AM Reporting Lab: [facility] [place] [address] Performing Lab: [facility] OCCULT BLOOD FIT X1 SCREEN HEMOGLOBIN .GASTROINT ESTINAL.LO WER [PRESENCE] IN STOOL BY IMMUNOASSA Y Negative 08/23 Specimen Type: FECES No comment entered. Ordering Provider: RA BRITTANY REDDY Report Released Date/Time: Aug 22, 2024 11:23 AM Reporting Lab: [facility] [address] [place] [phone] Performing Lab: [address] [address] [facility] OCCULT BLOOD FIT X1 SCREEN HEMOGLOBIN .GASTROINT ESTINAL.LO WER [PRESENCE] IN STOOL BY IMMUNOASSA Y Negative 08/22 Specimen Type: FECES No comment entered. Ordering Provider: RA BRITTANY REDDY Report Released Date/Time: Aug 22, 2024 11:23 AM Reporting Lab: [address] [address] Performing Lab: [address] [address] [facility] OCCULT BLOOD FIT X1 SCREEN HEMOGLOBIN .GASTROINT ESTINAL.LO WER [PRESENCE] IN STOOL BY IMMUNOASSA Y Negative 08/22 Specimen Type: FECES No comment entered. Ordering Provider: RA BRITTANY REDDY Report Released Date/Time: Aug 22, 2024 11:23 AM Reporting Lab: [address] [address] Performing Lab: [address] [address] [facility] GLUCOSE,B LOOD-poct (STL) GLUCOSE [MASS/VOLU ME] IN BLOOD BY AUTOMATED TEST STRIP 176 mg/dL 72 - 99 08/22 H Specimen Type: BLOOD Comment: Test Performed by: [id number] Meter #: [id number] Ordering Provider: RA BRITTANY REDDY Report Released Date/Time: Aug 22, 2024 04:36 PM Reporting Lab: [facility]1 [facility] [address] Performing Lab: [facility] [address] [facility] GLUCOSE,B LOOD-poct (STL) GLUCOSE [MASS/VOLU ME] IN BLOOD BY AUTOMATED TEST STRIP 221 mg/dL 72 - 99 08/22 H Specimen Type: BLOOD Comment: Test Performed by: [id number] Meter #: [id number] Ordering Provider: RA BRITTANY REDDY Report Released Date/Time: Aug 22, 2024 04:36 PM Reporting Lab: [facility] [address] Performing Lab: [facility]1 [facility] [phone] DIVISION GLUCOSE,B LOOD-poct (STL) GLUCOSE [MASS/VOLU ME] IN BLOOD BY AUTOMATED TEST STRIP 140 mg/dL 72 - 99 08/22 H Specimen Type: BLOOD Comment: Test Performed by: [id number] Meter #: [id number] Ordering Provider: RA BRITTANY REDDY Report Released Date/Time: Aug 22, 2024 11:27 AM Reporting Lab: [facility] [place] [address] Performing Lab: [facility]1 [facility] [address] DIVISION COMPREHEN SIVE METABOLIC PANEL CREATININE [MASS/VOLU ME] IN SERUM OR PLASMA 0.80 mg/dL 0.7 - 1.3 08/22 Specimen Type: PLASMA Comment: No hemolysis noted. Ordering Provider: RA BRITTANY REDDY Report Released Date/Time: Aug 17, 2024 01:18 PM Reporting Lab: [facility] [address] [place] [phone] Performing Lab: [facility] [address] [place] [phone] [facility] COMPREHEN SIVE METABOLIC PANEL UREA NITROGEN [MASS/VOLU ME] IN SERUM OR PLASMA 9.7 mg/dL 9.0 - 25.0 08/22 Specimen Type: PLASMA Comment: No hemolysis noted. Ordering Provider: RA BRITTANY REDDY Report Released Date/Time: Aug 17, 2024 01:18 PM Reporting Lab: [facility] [address] [facility] [address] Performing Lab: [place] [address] [facility] [address] [facility] COMPREHEN SIVE METABOLIC PANEL GLUCOSE [MASS/VOLU ME] IN SERUM OR PLASMA 135 mg/dL 72 - 99 08/22 H Specimen Type: PLASMA Comment: No hemolysis noted. Ordering Provider: RA BRITTANY REDDY Report Released Date/Time: Aug 17, 2024 01:18 PM Reporting Lab: [place] [address] [facility] [address] Performing Lab: [place] [address] [facility] [address] [facility] COMPREHEN SIVE METABOLIC PANEL SODIUM [MOLES/VOL UME] IN SERUM OR PLASMA 138 meq/L 136 - 145 08/22 Specimen Type: PLASMA Comment: No hemolysis noted. Ordering Provider: RA BRITTANY REDDY Report Released Date/Time: Aug 17, 2024 01:18 PM Reporting Lab: [place] [address] [facility] [address] Performing Lab: [place] [address] [facility] [address] [facility] COMPREHEN SIVE METABOLIC PANEL POTASSIUM [MOLES/VOL UME] IN SERUM OR PLASMA 3.6 meq/L 3.5 - 5 08/22 Specimen Type: PLASMA Comment: No hemolysis noted. Ordering Provider: RA BRITTANY REDDY Report Released Date/Time: Aug 17, 2024 01:18 PM Reporting Lab: [place] [address] [facility] [address] Performing Lab: [address] [address] [facility] COMPREHEN SIVE METABOLIC PANEL CHLORIDE [MOLES/VOL UME] IN SERUM OR PLASMA 105 meq/L 98 - 107 08/22 Specimen Type: PLASMA Comment: No hemolysis noted. Ordering Provider: RA BRITTANY REDDY Report Released Date/Time: Aug 17, 2024 01:18 PM Reporting Lab: [facility] [address] [facility] [address] Performing Lab: [facility] [address] [facility] [address] [facility] COMPREHEN SIVE METABOLIC PANEL CARBON DIOXIDE, TOTAL [MOLES/VOL UME] IN SERUM OR PLASMA 23 meq/L 22 - 31 08/22 Specimen Type: PLASMA Comment: No hemolysis noted. Ordering Provider: RA BRITTANY REDDY Report Released Date/Time: Aug 17, 2024 01:18 PM Reporting Lab: [place] [address] [facility] [address] Performing Lab: [place] [address] [facility] [address] [facility] COMPREHEN SIVE METABOLIC PANEL CALCIUM [MASS/VOLU ME] IN SERUM OR PLASMA 8.7 mg/dL 8.4 - 10.4 08/22 Specimen Type: PLASMA Comment: No hemolysis noted. Ordering Provider: RA BRITTANY REDDY Report Released Date/Time: Aug 17, 2024 01:18 PM Reporting Lab: [place] [address] [facility] [address] Performing Lab: [place] [address] [facility] [address] [facility] COMPREHEN SIVE METABOLIC PANEL PROTEIN [MASS/VOLU ME] IN SERUM OR PLASMA 6.3 g/dL 6 - 8.6 08/22 Specimen Type: PLASMA Comment: No hemolysis noted. Ordering Provider: RA BRITTANY REDDY Report Released Date/Time: Aug 17, 2024 01:18 PM Reporting Lab: [place] [address] [facility] [address] Performing Lab: [place] [address] [facility] [address] [facility] COMPREHEN SIVE METABOLIC PANEL ALBUMIN [MASS/VOLU ME] IN SERUM OR PLASMA 2.9 g/dL 3.4 - 5 08/22 L Specimen Type: PLASMA Comment: No hemolysis noted. Ordering Provider: RA BRITTANY REDDY Report Released Date/Time: Aug 17, 2024 01:18 PM Reporting Lab: [facility] [address] [place] [phone] Performing Lab: [facility] [address] [facility] [address] [facility] COMPREHEN SIVE METABOLIC PANEL BILIRUBIN. TOTAL [MASS/VOLU ME] IN SERUM OR PLASMA 0.4 mg/dL 0.2 - 1.2 08/22 Specimen Type: PLASMA Comment: No hemolysis noted. Ordering Provider: RA BRITTANY REDDY Report Released Date/Time: Aug 17, 2024 01:18 PM Reporting Lab: [address] [address] Performing Lab: [address] [address] [facility] COMPREHEN SIVE METABOLIC PANEL ALKALINE PHOSPHATAS E [ENZYMATIC ACTIVITY/V OLUME] IN SERUM OR PLASMA 131 U/L 40 - 150 08/22 Specimen Type: PLASMA Comment: No hemolysis noted. Ordering Provider: RA BRITTANY REDDY Report Released Date/Time: Aug 17, 2024 01:18 PM Reporting Lab: [address] [address] Performing Lab: [facility] [address] [place] [address] [facility] COMPREHEN SIVE METABOLIC PANEL ASPARTATE AMINOTRANS FERASE [ENZYMATIC ACTIVITY/V OLUME] IN SERUM OR PLASMA 33 U/L 5 - 34 08/22 Specimen Type: PLASMA Comment: No hemolysis noted. Ordering Provider: RA BRITTANY REDDY Report Released Date/Time: Aug 17, 2024 01:18 PM Reporting Lab: [facility] [address] [facility] [address] Performing Lab: [facility] [address] [place] [phone] [facility] COMPREHEN SIVE METABOLIC PANEL ALANINE AMINOTRANS FERASE [ENZYMATIC ACTIVITY/V OLUME] IN SERUM OR PLASMA 22 U/L 8 - 40 08/22 Specimen Type: PLASMA Comment: No hemolysis noted. Ordering Provider: RA BRITTANY REDDY Report Released Date/Time: Aug 17, 2024 01:18 PM Reporting Lab: [facility] [address] [facility] [address] Performing Lab: [facility] [address] [facility] [address] [facility] COMPREHEN SIVE METABOLIC PANEL GLOMERULAR FILTRATION RATE/1.73 SQ M.PREDICTE D [VOLUME RATE/AREA] IN SERUM, PLASMA OR BLOOD BY CREATININE -BASED FORMULA (CKD-EPI 2020) 94.0 60 08/22 Specimen Type: PLASMA Comment: No hemolysis noted. Ordering Provider: RA BRITTANY REDDY Report Released Date/Time: Aug 17, 2024 01:18 PM Reporting Lab: [facility] [address] [facility] [address] Performing Lab: [address] [address] [place] [address] Vital Signs Combined list of inpatient and outpatient Vital Signs from Department of Defense and Veterans Affairs, ranging from 12 months to all on record, depending upon the facility. Vital Sign Value Date Comments Source SYSTOLIC BLOOD PRESSURE 124 08/23/2024 05:19:34 [facility] DIASTOLIC BLOOD PRESSURE 62 08/23/2024 05:19:34 [facility] PULSE OXIMETRY 99 08/23/2024 05:19:34 [facility] PULSE 71 08/23/2024 05:19:34 [facility] SYSTOLIC BLOOD PRESSURE 120 08/22/2024 05:18:32 [facility] DIASTOLIC BLOOD PRESSURE 77 08/22/2024 05:18:32 [facility] PULSE OXIMETRY 95 08/22/2024 05:18:32 [facility] TEMPERATURE 97.9 08/22/2024 05:18:32 [facility] PULSE 76 08/22/2024 05:18:32 [facility] RESPIRATION 20 08/22/2024 05:18:32 [facility] PAIN 0 08/21/2024 01:54:00 [facility] SYSTOLIC BLOOD PRESSURE 126 08/20/2024 10:00:00 [facility] DIASTOLIC BLOOD PRESSURE 77 08/20/2024 10:00:00 [facility] PULSE OXIMETRY 97 08/20/2024 10:00:00 [facility] WEIGHT 215.2 08/20/2024 10:00:00 [facility] BMI 31kg/m2 08/20/2024 10:00:00 [facility] PAIN 0 08/20/2024 10:00:00 [facility] TEMPERATURE 97.6 08/20/2024 10:00:00 [facility] PULSE 74 08/20/2024 10:00:00 [facility] RESPIRATION 18 08/20/2024 10:00:00 [facility] PAIN 0 08/19/2024 01:29:00 [facility] Encounters Combined list of: 1) Encounters from Department of [facility] facilities going back up to thelast 18 months. 2) Encounters from the Department of [facility] facilities going back up to 280 months. 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 O/P EST LOW 20-29 MIN [id number] Diagnos is: ICD-10- CM B35.1 Tinea unguium
NADIRA BUSBY 06/08 [facility] Outpatient Encounter [id number] 06/11 [facility] Outpatient Encounter [id number] 06/11 [facility] Outpatient Encounter [id number] JARON WILKINS 06/14 [facility] Outpatient Encounter [id number] LEAH COLLADO 06/14 [facility] Outpatient Encounter [id number] 06/14 [facility] Outpatient Encounter [id number] 06/15 [facility] MTMS BY PHARM EST 15 MIN [id number] Diagnos is: ICD-10- CM E11.8 Type 2 diabete s mellitu s with unspeci fied complic ations< br/> LEAH COLLADO 07/02 [facility] Outpatient Encounter [id number] 07/05 [facility] EMR DPT VST MAYX REQ PHY/QHP [id number] Diagnos is: ICD-10- CM H11.32 Conjunc tival hemorrh age, left eye<br/ > MUDALLAL,O JAN 13 [facility] Outpatient Encounter [id number] MUDALLAL,O JAN 13 [facility] EMR DPT VST MAYX REQ PHY/QHP [id number] Diagnos is: ICD-10- CM H11.32 Conjunc tival hemorrh age, left eye<br/ > MUDALLAL,O JAN 13 [facility] OFFICE O/P EST HI 40-54 MIN [id number] Diagnos is: ICD-10- CM 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
BHAVNA BAIRDMIGUEL I 07/21 [facility] Outpatient Encounter [id number] 07/21 [facility] Outpatient Encounter [id number] 07/22 [facility] Outpatient Encounter [id number] Diagnos is: ICD-10- CM M48.062 Spinal stenosi s, lumbar region with neuroge maria teresa claudic ation<b r/> SIR HENDRIXESHA 07/22 [facility] CLEAN/INSP ECT CARLOS PART DENT [id number] Diagnos is: ICD-10- CM K02.62 Dental caries on smooth surface penetra ting into dentin< br/> DAMIEN DENNIS 07/26 [facility] Outpatient Encounter [id number] 07/27 [facility] Outpatient Encounter [id number] 07/27 [facility] Outpatient Encounter [id number] 08/10 [facility] CLEAN/INSP ECT [place] PART DENT [id number] Diagnos is: ICD-10- CM K03.6 Deposit s [accret ions] on teeth<b r/> O Torrey LAZO 08/30 [facility] Outpatient Encounter [id number] 08/30 [facility] OFFICE O/P EST LOW 20-29 MIN [id number] [id number] Diagnos is: ICD-10- CM B35.1 Tinea unguium
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
LEAH COLLADO I B 09/10 [facility] Outpatient Encounter [id number] 09/13 [facility] ACUPUNCT W/O STIMUL 15 MIN [id number] Diagnos is: ICD-10- CM M54.50 Low back pain, unspeci fied
DEVYN FINE M 09/20 [facility] Outpatient Encounter [id number] 09/24 [facility] ACUPUNCT W/O STIMUL 15 MIN [id number] [id number] Diagnos is: ICD-10- CM M54.50 Low back pain, unspeci fied
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
LEAH COLLADO I B 10/18 [facility] [id number] [id number] Diagnos is: ICD-10- CM Z71.89 Other specifi ed corporate counsel ing<br/ > LOUIE GUPTA YASSINE M 10/25 [facility] ACUPUNCT W/O STIMUL 15 MIN [id number] [id number] Diagnos is: ICD-10- CM M54.50 Low back pain, unspeci fied
DEVYN FINE M 10/25 [facility] Outpatient Encounter [id number] 10/27 [facility] Outpatient Encounter [id number] 11/11 [facility] OFFICE O/P EST LOW 20 MIN [id number] [id number] Diagnos is: ICD-10- CM M48.062 Spinal stenosi s, lumbar region with neuroge maria teresa claudic ation<b r/> LUIZ HENDRIX 11/11 [facility] ACUPUNCT W/O STIMUL 15 MIN [id number] Diagnos is: ICD-10- CM M54.50 Low back pain, unspeci fied
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
LEAH COLLADO 11/[address] [facility] ACUPUNCT W/O STIMUL 15 MIN [id number] Diagnos is: ICD-10- CM M54.50 Low back pain, unspeci fied
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
BLAYNEARMAND Santos G 12/17 [facility] [id number] 12/20 [facility] ACUPUNCT W/O STIMUL 15 MIN [id number] Diagnos is: ICD-10- CM M54.50 Low back pain, unspeci fied
RUDROFF,DEVYN HER M 01/03 [facility] ACUPUNCT W/O STIMUL 15 MIN [id number] [id number] Diagnos is: ICD-10- CM M54.50 Low back pain, unspeci fied
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
LEAH COLLADO 01/23 [facility] OFFICE O/P EST LOW 20 MIN 00431-3.65 [id number] [phone] Diagnos is: ICD-10- CM B35.1 Tinea unguium
NADIRA BUSBY 01/25 [facility] En[facility] 71089-5.65 [phone] NITHYA CAMEJO I 01/31 [facility] OFFICE O/P EST HI 40 MIN 55368-5.65 [id number] Diagnos is: ICD-10- CM R06.00 Dyspnea , unspeci fied
SHERRELL BAIRD I 02/[address] [facility] ACUPUNCT W/O STIMUL 15 MIN 42334-1.65 [id number] Diagnos is: ICD-10- CM M54.50 Low back pain, unspeci fied
DEVYN FINE M 02/06 [facility] PULMONARY STRESS TESTING 60318-8.65 [id number] [phone] Diagnos is: ICD-10- CM R06.00 Dyspnea , unspeci fied
SHALINI JONES R 02/09 [facility] OFF/OP CNSLTJ NEW/EST MOD 40 47746-7.65 [id number] Diagnos is: ICD-10- CM L85.9 Epiderm al thicken ing, unspeci fied
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
LEAH COLLADO 02/[address] [facility] ACUPUNCT W/O STIMUL 15 MIN 61954-9.65 [id number] Diagnos is: ICD-10- CM M54.50 Low back pain, unspeci fied
RUDROFFDEVYN M 02/20 [facility] Outpatient Encounter [phone] 02/27 [facility] SELF CARE MNGMENT TRAINING 24819-6 [id number] Diagnos is: ICD-10- CM Z96.652 Presenc e of left artific ial knee joint<b r/> DONS,JAIME MIN J 02/27 [facility] CLEAN/INSP ECT CARLOS PART DENT 56458-7.65 [id number] Diagnos is: ICD-10- CM K03.6 Deposit s [accret ions] on teeth<b r/> O Torrey LAZO TORSONU 02/28 [facility] ACUPUNCT W/O STIMUL 15 MIN 66461-8.65 [id number] Diagnos is: ICD-10- CM M54.50 Low back pain, unspeci fied
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
TOBIASLEAH I B 03/16 [facility] INTRAORAL PERIAPICAL FIRST 79097-9.65 [id number] 2 Diagnos is: ICD-10- CM Z01.20 Encount er for dental exam and cleanin g w/o abnorma l finding s
DAMIEN DENNIS SAADIA 03/20 [facility] GAIT TRAINING THERAPY 36826-8.65 [id number] 8 Diagnos is: ICD-10- CM M48.062 Spinal stenosi s, lumbar region with neuroge maria teresa claudic ation<b r/> SHERRELL BAIRD I 03/21 [facility] Outpatient Encounter 73543-6.65 [id number] 1 SHERRELL BAIRD I 03/26 [facility] Outpatient Encounter 41431-7.65 [id number] 1 VENKAT MIGUEL 03/27 [facility] THERAPEUTI C EXERCISES 57424-7.65 [id number] 1 Diagnos is: ICD-10- CM M25.569 Pain in unspeci fied knee
JAIME FERRELL MIN J 03/28 [facility] Outpatient Encounter 35219-4.65 [id number] 8 04/04 [facility] Outpatient Encounter 60143-4.65 [id number] 6 04/04 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
SHERRELL BAIRD I 04/07 [facility] THERAPEUTI C EXERCISES 40728-9.65 [id number] 3 Diagnos is: ICD-10- CM M25.569 Pain in unspeci fied knee
DONS,JAIME MIN J 04/11 [facility] THERAPEUTI C EXERCISES 18574-8.65 [id number] 8 Diagnos is: ICD-10- CM M54.50 Low back pain, unspeci fied
DONS,JAIME MIN J 04/20 [facility] TTE W/DOPPLER COMPLETE 06216-3.65 [id number] 9 Diagnos is: ICD-10- CM R06.00 Dyspnea , unspeci fied
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
LEAH COLLADO 04/27 [facility] Outpatient Encounter 81687-5.65 [id number] 6 05/01 [facility] Outpatient Encounter 12294-6.65 [id number] 9 SHERRELL BAIRD I 05/02 [facility] Outpatient Encounter 83414-8 [id number] 0 05/04 [facility] Outpatient Encounter 75781-0 [id number] 0 05/04 [facility] OFFICE O/P EST MOD 30 MIN 01428-1. [id number] 9 Diagnos is: ICD-10- CM E11.9 Type 2 diabete s mellitu s without complic ations< br/> ESTELA ESPINOZA 05/12 [facility] Outpatient Encounter 17144-0. 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
DONS,JAIME MIN J 05/18 [facility] OFFICE O/P EST LOW 20 MIN 71834-1.65 [id number] 6 Diagnos is: ICD-10- CM B35.1 Tinea unguium
NADIRA BUSBY 05/31 [facility] OFF/OP CNSLTJ NEW/EST MOD 40 07406-4.65 [id number] 0 Diagnos is: ICD-10- CM E23.7 Disorde r of pituita ry gland, unspeci fied
GILSHARON TONY WHITNEY OS 06/05 [facility] OFF/OP CONSLTJ NEW/EST HI 55 89678-6.65 [id number] 3 Diagnos is: ICD-10- CM I50.9 Heart failure , unspeci fied
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
LEAH COLLADO 06/08 [facility] OFFICE O/P EST LOW 20 MIN 64096-0.65 [id number] 8 Diagnos is: ICD-10- CM H25.813 Combine d forms of age-rel ated catarac t, bilater al
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
KANDY HAGEN 06/19 [facility] Outpatient Encounter 55112-9.65 [id number] 3 06/19 [facility] HC PRO PHONE CALL 11-20 MIN 27895-3.65 [id number] 0 Diagnos is: ICD-10- CM I50.9 Heart failure , unspeci fied
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 Outpatient Encounter 03242-6. [id number] 1 07/03 [facility] Outpatient Encounter 07912-4. 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
OFELIA PERKINS 08/11 [facility] Inpatient Encounter 08132-8.65 [id number] 302 Admit Reason: CAD S/P CABG
RA BRITTANY REDDY 08/11 Discharge from inpatient treatment to the [facility]. [facility] Inpatient Encounter 59357-5.65 [id number] 444 MARCIE LEE 08/11 [facility] Inpatient Encounter 51046-1.65 [id number] 359 MARCIE LEE 08/11 [facility] 55274-8.65 [id number] 186 Diagnos is: ICD-10- CM G47.33 Obstruc tive sleep apnea (adult) (pediat valerie)
DEMARCO ELIZABETH 08/11 [facility] Inpatient Encounter 83464-8.65 [id number] 081 MARCIE LEE 08/11 [facility] Encounter 32019-5.65 [id number] 200 MARCIE LEE 08/11 [facility] Inpatient Encounter 43996-4.65 [id number] 615 KRISTI NICHOLS 08/11 [facility] Inpatient Encounter 99818-3.65 [id number] 628 KRISTI NICHOLS 08/11 [facility] Inpatient Encounter 55654-6.65 [id number] 012 MARCIE LEE 08/12 [facility] Inpatient Encounter 97966-1.65 [id number] 917 MARCIE LEE A 08/12 [facility] Inpatient Encounter 11046-6.65 [id number] 001 MARCIE LEE 08/12 [facility] Inpatient Encounter 02587-1.65 [id number] 826 LEAH PARKER S 08/12 [facility] Inpatient Encounter 09214-7.65 [id number] 835 LEAH PARKER S 08/12 [facility] Inpatient Encounter 05057-8.65 [id number] 183 Emeli JONES 08/13 [facility] Inpatient Encounter 28824-7.65 [id number] 195 Emeli JONES 08/13 [facility] Inpatient Encounter 48862-2.65 [id number] 818 MARCIE LEE 08/13 [facility] Inpatient Encounter 13697-1.65 [id number] 370 DIANE CANDELARIA 08/13 [facility] Inpatient Encounter 95369-9.65 [id number] 381 DIANE CANDELARIA 08/134 [facility] Inpatient Encounter 14787-1.65 [id number] 8 08/14 [facility] BHV ASSMT/REAS SESSMENT 73607-9.65 [id number] 329 Diagnos is: ICD-10- CM 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
ADARSH,COLLE EN 08/14 [facility] SELF CARE MNGMENT TRAINING 79149-5. 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
RA BRITTANY REDDY 08/14 [facility] Inpatient Encounter 70144-3.65 [id number] 090 SOMMER ORELLANA 08/14 [facility] Inpatient Encounter 90402-7.65 [id number] 379 SAMIRA MONREAL 08/14 [facility] Inpatient Encounter 86047-6.65 [id number] 500 SAMIRA MONREAL 08/14 [facility] Inpatient Encounter 06109-6.65 [id number] 740 CONSTANTINO TO 08/15 [facility] Inpatient Encounter 55089-0.65 [id number] 800 CONSTANTINO TO 08/15 [facility] GAIT TRAINING THERAPY 86320-6.65 [id number] 139 Diagnos is: ICD-10- CM 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
LOUIE MENDEZ 08/15 [facility] Inpatient Encounter 17016-2.65 [id number] 124 Emeli JONES 08/15 [facility] Inpatient Encounter 30793-1.65 [id number] 08/15 [facility] Inpatient Encounter 87400-9.65 [id number] 029 DEMI JEFFERSON S 08/15 [facility] Inpatient Encounter 04389-3.65 [id number] 471 Emeli JONES 08/15 [facility] Inpatient Encounter 65697-6.65 [id number] 229 CARY ANNA RA 08/15 [facility] N [facility] Inpatient Encounter 31779-7.65 [id number] 241 CARY ANNA RA 08/16 [facility] Inpatient Encounter 65786-8.65 [id number] 658 MARCIE LEE 08/16 [facility] GAIT TRAINING THERAPY 33608-0.65 [id number] 002 Diagnos is: ICD-10- CM 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
ST HASMUKH CONRAD 08/16 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
ADARSHCOLLE EN 08/16 [facility] QNHP OL DIG ASSMT&MGMT 21+ 60870-9.65 [id number] 224 Diagnos is: ICD-10- CM Z51.81 Encount er for therape utic drug level monitor ing<br/ > JAMIR KC 08/16 [facility] Inpatient Encounter 90334-0.65 [id number] 166 MARCIE LEE 08/16 [facility] Inpatient Encounter 18724-7.65 [id number] 08/16 [facility] Inpatient Encounter 67899-9.65 [id number] 856 CARY ANNA RA 08/16 [facility] In[facility] Encounter 51553-7.65 [id number] 882 CARY ANNA RA 08/16 [facility] BHV IVNTJ GRP EA ADDL 97286-8.65 [id number] 538 Diagnos is: ICD-10- CM 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<b r/> ROHIT SIERRA IE S 08/18 [facility] Inpatient Encounter 81369-0.65 [id number] [address] EMOND A 08/18 [facility] Inpatient Encounter 48473-1.65 [id number] 363 SEVERO NG 08/19 [facility] N [facility] Inpatient Encounter 03274-3.65 [id number] 371 SEVERO NG 08/19 [facility] Inpatient Encounter 39694-1.65 [id number] 089 Emeli JONES 08/19 [facility] Inpatient Encounter 22544-1.65 [id number] 116 Emeli JONES 08/19 [facility] Inpatient Encounter 01482-5.65 [id number] 933 ADELINEROS EMOND A 08/19 [facility] Inpatient Encounter 11027-6.65 [id number] 488 CARY ANNA RA 08/19 [facility] Inpatient Encounter 94554-6.65 [id number] 514 CARY ANNA RA 08/19 [facility] Inpatient Encounter 09039-5.65 [id number] 060 ADELINEROS EMOND A 08/20 [facility] Inpatient Encounter 86861-8.65 [id number] 114 ADELINEROS EMOND A 08/20 [facility] Inpatient Encounter 54261-7.65 [id number] 039 CARY ANNA RA 08/21 [facility] Inpatient Encounter 21874-2.65 [id number] 041 CARY ANNA RA 08/21 [facility] Inpatient Encounter 11151-3.65 [id number] 954 ADELINEROS EMOND A 08/21 [facility] Inpatient Encounter 34237-6.65 [id number] 042 ADELINEROS EMOND A 08/21 [facility] Inpatient Encounter 58478-9.65 [id number] 072 ADELINEROS EMOND A 08/21 [facility] Inpatient Encounter 58198-9.65 [id number] 087 KOBY LUND 08/21 [facility] Inpatient Encounter 24694-3.65 [id number] 822 PERLA MICHAUD 08/21 [facility] Inpatient Encounter 29719-9.65 [id number] 828 PERLA MICHAUD 08/21 [facility] Inpatient Encounter 67934-4.65 [id number] 551 MARCIE LEE 08/22 [facility] THERAPEUTI C EXERCISES 31104-7.65 [id number] 443 Diagnos is: ICD-10- CM 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<b r/> RA BRITTANY REDDY 08[facility]22 [facility] Inpatient Encounter [id number] MARCIE LEE 08/22 [facility] Inpatient Encounter [id number] CARY ANNA RA 08/23 [facility] Inpatient Encounter [id number] CARY ANNA RA 08/23 [facility] Inpatient Encounter [id number] DAWNA PHILLIP 08/23 [facility] CASE [facility]NAGEMENT [id number] Diagnos is: ICD-10- CM G47.33 Obstruc tive sleep apnea (adult) (pediat valerie)
DEMARCO ELIZABETH 08/23 [facility] Inpatient Encounter [id number] LOUIE MENDEZ M 08/23 [facility] Inpatient Encounter [id number] VICTORINA SHARPE 08/23 [facility] Inpatient Encounter [id number] VICTORINA SHARPE 08/23 [facility] Inpatient Encounter [id number] VICTORINA SHARPE 08/23 [facility] En[facility] [id number] 08/23 [facility] N [facility] OFF/OP EST MARCH X REQ PHY/QHP [id number] Diagnos is: ICD-10- CM 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
CHARITY HALL 08/[address] 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
LEAH COLLADO I B 08/30 [facility] Outpatient Encounter [id number] SHERRELL BAIRD I 08/31 [facility] Outpatient Encounter [id number] BLANCA JOHNSON J 09/01 [facility] Outpatient Encounter [id number] CHARITY HALL 09/06 [facility] Outpatient Encounter [id number] 09/06 [facility] Outpatient Encounter [id number] 09/07 [facility] Outpatient Encounter [id number] 09/08 [facility] HC PRO PHONE CALL 5-10 MIN [id number] Diagnos is: ICD-10- CM D69.6 Thrombo cytopen ia, unspeci fied
BRAYAN ASH JAZMINE 09/08 [facility] Outpatient Encounter [id number] 09/11 [facility] Outpatient Encounter [id number] Diagnos is: ICD-10- CM G47.33 Obstruc tive sleep apnea (adult) (pediat valerie)
OFELIA PERKINS 09/12 [facility] Outpatient Encounter [id number] 09/21 [facility] Outpatient Encounter [id number] 09/21 [facility] Outpatient Encounter [id number] 09/22 [facility] Outpatient Encounter [id number] SHERRELL BAIRD I 09/29 [facility] Outpatient Encounter [id number] 09/29 [facility] Outpatient Encounter [id number] 09/29 [facility] Outpatient Encounter [id number] 10/02 [facility] Outpatient Encounter [id number] 10/02 [facility] Outpatient Encounter [id number] 10/03 [facility] Outpatient Encounter [id number] SHERRELL BAIRD I 10/24 [facility] Social History Combined list of available smoking, tobacco, and other social history from Department of Defense and Veterans Affairs facilities. Social History Type Response Date Comment [facility] e Tobacco smoking status NHIS VA-TOBACCO FORMER USER 03/16/2024 [facility] History of tobacco use NH-TOBACCO QUIT 15 YRS OR MORE 03/16/2024 [facility] History of tobacco use VA-TOBACCO FORMER USER 03/22/2023 [facility] History of tobacco use NH-TOBACCO FORMER USER 01/29/2022 [facility] History of tobacco use VA-TOBACCO FORMER USER 02/07/2019 [facility] History of tobacco use QUIT TOBACCO >7 YEARS AGO 03/09/2018 [facility] History of tobacco use QUIT TOBACCO >7 YEARS AGO 08/05/2017 [facility] History of tobacco use QUIT TOBACCO >7 YEARS AGO 08/11/2016 [facility] History of tobacco use QUIT TOBACCO >7 YEARS AGO 09/30/2015 [facility] History of tobacco use QUIT TOBACCO >7 YEARS AGO 10/29/2014 [facility] History of tobacco use QUIT TOBACCO >7 YEARS AGO 12/27/2013 [facility] History of tobacco use LIFETIME NON-USER OF TOBACCO 02/24/2013 [facility] History of tobacco use QUIT TOBACCO >7 YEARS AGO 02/11/2009 [facility] History of tobacco use CURRENT NON-TOBACCO USER-HX OF USE 10/06/2006 [facility] Plan of Care List of future care activities from Department of [facility] Affairs facilities. Additional future care activities may be listed in the Assessment and Plan section. Date/Time Care Activity Care Activity Detail Radhikai ty 11/20/2024 AMBULATORY - SURGERY AMBULATORY - SURGERY [facility] 11/21/2024 AMBULATORY - NONE AMBULATORY - NONE [facility] 12/11/2024 AMBULATORY - MEDICINE AMBULATORY - MEDICI [facility] Advance Directives List of completed, amended, or rescinded Advance Directives on record at Department of [facility] Affairs facilities. An actual copy of the Directive is not included. Date Advance Directive Provider Source 01/19/2017 ADVANCE DIRECTIVE DISCUSSION ERICK BARDALES [facility]
--- OUTSIDE RECORDS SUMMARY | 2024-11-17 03:43 | XMS_ITS | Encounter Summary ---
Author Name [facility] [place] [facility] [place] [facility] [place] Address [address] [place] [address] Care Team Providers Care Telecommunications Repairer Name Role Phone MANUEL BAIRD Primary Care Provider Unavailabl e Insurance Providers: All historical and current Section Date Range: From patient's date of to the date document was created. This section includes the names of all active insurance providers for the patient. Insurance Provider Type of Coverage Plan Name Start of Policy Coverage End of Policy Coverage Group Number Member ID Insurance Provider's Telephone Number Policy Patton's Name Patient's Relationship to Policy Patton MEDICARE (WNR) MEDICARE (M) PART A Apr 08, 2017 PART A [id number] ASHLEY WALKER PATIENT Selected Encounter This section includes the information on record at [place] for the Encounter. Date/Time Encounter Type Encounter Description Reason Provider Source Jun 29, 2024 10:15 AM OFFICE O/P EST HI 40 MIN CARDIAC ECHO ICD-10-CM I34.0 Nonrheumatic mitral (valve) insufficiency OU,JIAMABEL IHE Encounter Template Text not used by [place] Assessments - Encounter Diagnoses This section includes the primary and secondary diagnoses documented for the Encounter. Date/Time Primary/Secondary Diagnosis Diagnosis Name Provider Source Jun 29, 2024 10:52 AM PRIMARY Nonrheumatic mitral (valve) insufficiency [facility] Plan of Treatment: Future Appointments (+ 6 months) and Future Tests (+/- 45 days) The Plan of Treatment section includes future care activities for the [facility] [place] [facility] [place] This section includes future appointments and future orders which are active, pending or scheduled. Future Appointments This section includes appointments that were scheduled to occur 6 months from the date of the Encounter, up to a maximum of 20 appointments. The data comes from all [facility]. Appointment Date/Time Appointment Type Appointme nt Facility Name Jul 03, 2024 10:30 AM AMBULATORY - MEDICINE [facility] Jul 14, 2024 12:54 PM AMBULATORY - SURGERY [facility] Jul 20, 2024 10:00 AM AMBULATORY - MEDICINE [facility] Aug 02, 2024 09:45 AM AMBULATORY - MEDICINE [facility] Aug 24, 2024 10:00 AM AMBULATORY MEDICINE [facility] Aug 24, 2024 10:30 AM AMBULATORY - MEDICINE [facility] Aug 30, 2024 09:30 AM AMBULATORY - MEDICINE [facility] Aug 31, 2024 01:00 PM AMBULATORY - SURGERY [facility] Sep 21, 2024 01:30 PM AMBULATORY MEDICINE [facility] Sep 22, 2024 11:00 AM AMBULATORY - MEDICINE [facility] Sep 29, 2024 12:30 PM AMBULATORY - MEDICINE [facility] Oct 02, 2024 09:30 AM AMBULATORY - MEDICINE [facility] Nov 20, 2024 10:30 AM AMBULATORY - SURGERY [facility] Nov 21, 2024 10:00 AM AMBULATORY - NONE [facility] Dec 11, 2024 10:30 AM AMBULATORY - MEDICINE [facility] Active, Pending, and Scheduled Orders This section includes a listing of several types of active, pending, and scheduled orders, including clinic medications orders, diagnostic test orders, procedure orders and consult orders; where the start date of the order is 45 days before the date of the Encounter or 45 days after the date of theEncounter. The data comes from all [place] treatment facilities. Test Date/Time Test Type Test Details Facility Name Aug 02, 2024 12:00 AM Laboratory - Chemistry Order CBC BLOOD STAT SP [facility] Aug 02, 2024 12:00 AM Laboratory - Chemistry Order COMPREHENSIVE METABOLIC PANEL GREEN LI/HEP BLD/PLAS PLASMA SP [facility] Lab Results: +/- 30 days of the encounter This section includes the Chemistry and Hematology Lab Results on record with [place] for the patient. Radiology Reports and Pathology Reports are provided separately, in subsequent sections. Lab Results This section contains the Chemistry/Hematology Results that were resulted 30 days before or 30 daysafter the date of the Encounter. Date/Time Source Result Type Result - Unit Interpretation Reference Range Comment Jul 20, 2024 11:18 AM [facility] APTT Specimen Type: PLASMA No comment entered. Ordering Provider: MANUEL BAIRD Report Released Date/Time: Jul 19, 2024 04:00 PM Reporting Lab: [place] [address] [facility] [address] Performing Lab: [place] [address] [facility] [address] APTT 32.1 s 26.7-39.9 Jul 20, 2024 11:18 AM [facility] PT/INR NEW ([facility]) Specimen Type: PLASMA No comment entered. Ordering Provider: MANUEL BAIRD Report Released Date/Time: Jul 19, 2024 04:00 PM Reporting Lab: [place] [address] [facility] [address] Performing Lab: [facility] [address] [facility] [address] PROTIME 14.4 s H 9.4-12.5 INR VALUE 1.3 {INR} Jul 20, 2024 11:18 AM [facility] CBC Specimen Type: BLOOD No comment entered. Ordering Provider: MANUEL BAIRD Report Released Date/Time: Jul 19, 2024 04:00 PM Reporting Lab: [facility] [address] [facility] [address] Performing Lab: [place] [address] [facility] [address] WBC 4.7 10*3/uL 3.6-11.2 RBC 4.86 10*6/uL 4.10-5.70 HGB 12.9 g/dL L 13.1-16.8 HCT 39.8 38.2-48.4 MCV 81.9 fL 80.0-100.0 MCH 26.5 pg L 27.0-34.0 MCHC 32.4 g/dL L 33.0-36.0 PLT 87 10*3/uL L 150-400 MPV 9.9 fL 7.5-11.2 RDW 15.4 H 11.8-15.1 LYMPHOCYTES, AUTO % 19 MONOCYTES, AUTO % 11 NEUTROPHILS, AUTO % 68 EOSINOPHILS, AUTO % 2 BASOPHILS, AUTO % 0 LYMPHOCYTES, ABSOLUTE 0.87 10*3/uL 0.77-4.50 MONOCYTES, ABSOLUTE 0.49 10*3/uL 0.19-0.80 NEUTROPHILS, ABSOLUTE 3.16 10*3/uL 2.10-8.00 EOSINOPHILS, ABSOLUTE 0.10 10*3/uL 0.00-0.60 BASOPHILS, ABSOLUTE 0.02 10*3/uL 0.00-0.20 IMMATURE PLT FRACTION 1.6 1.0-7.0 Jul 17, 2024 08:02 AM [facility] BASIC METABOLIC PANEL Specimen Type: PLASMA Comment: No hemolysis noted. Ordering Provider: WELLINGTON SON Report Released Date/Time: Jun 07, 2024 01:43 PM Reporting Lab: [address] [address] Performing Lab: [address] [address] CREATININE 0.85 mg/dL 0.7-1.3 UREA NITROGEN 15.2 mg/dL 9.0-25.0 GLUCOSE 120 mg/dL H 72-99 SODIUM 141 meq/L 136-145 POTASSIUM 4.4 meq/L 3.5-5 CHLORIDE 107 meq/L 98-107 CARBON DIOXIDE 26 meq/L 22-31 CALCIUM 9.2 mg/dL 8.4-10.4 EGFR (CKD-EPI 2020) 92.3 >60 Jun 19, 2024 07:30 AM [facility] PT/INR NEW (STL-MA) Specimen Type: PLASMA No comment entered. Ordering Provider: ROSE PITTS AEJulián Report Released Date/Time: Jun 12, 2024 10:14 AM Reporting Lab: [address] [address] Performing Lab: [address] [address] PROTIME 13.3 s H 9.4-12.5 INR VALUE 1.2 {INR} Jun 19, 2024 07:30 AM [facility] BASIC METABOLIC PANEL Specimen Type: PLASMA Comment: K result may show a positive bias due to hemolysis. Specimen slightly hemolyzed. Ordering Provider: ROSE PITTS Report Released Date/Time: Jun 12, 2024 10:14 AM Reporting Lab: [address] [address] Performing Lab: [address] [address] CREATININE 0.85 mg/dL 0.7-1.3 UREA NITROGEN 11.9 mg/dL 9.0-25.0 GLUCOSE 106 mg/dL H 72-99 SODIUM 141 meq/L 136-145 POTASSIUM 4.4 meq/L 3.5-5 CHLORIDE 110 meq/L H 98-107 CARBON DIOXIDE 22 meq/L 22-31 CALCIUM 9.9 mg/dL 8.4-10.4 EGFR (CKD-EPI 2020) 92.3 >60 Jun 19, 2024 07:30 AM [facility] CBC Specimen Type: BLOOD No comment entered. Ordering Provider: ROSE PITTS AEJulián Report Released Date/Time: Jun 12, 2024 10:14 AM Reporting Lab: [address] [address] Performing Lab: [address] [address] WBC 5.1 10*3/uL 3.6-11.2 RBC 5.31 10*6/uL 4.10-5.70 HGB 14.2 g/dL 13.1-16.8 HCT 43.8 38.2-48.4 PLT 107 10*3/uL L 150-400 LYMPHOCYTES, AUTO % 26 MONOCYTES, AUTO % 10 NEUTROPHILS, AUTO % 57 EOSINOPHILS, AUTO % 5 BASOPHILS, AUTO % 2 LYMPHOCYTES, ABSOLUTE 1.33 10*3/uL 0.77-4.50 MONOCYTES, ABSOLUTE 0.50 10*3/uL 0.19-0.80 NEUTROPHILS, ABSOLUTE 2.92 10*3/uL 2.10-8.00 EOSINOPHILS, ABSOLUTE 0.27 10*3/uL 0.00-0.60 BASOPHILS, ABSOLUTE 0.08 10*3/uL 0.00-0.20 MCV 82.5 fL 80.0-100.0 MCH 26.7 pg L 27.0-34.0 MCHC 32.4 g/dL L 33.0-36.0 MPV 10.1 fL 7.5-11.2 RDW 14.8 11.8-15.1 IMMATURE PLT FRACTION 2.3 1.0-7.0 Jun 19, 2024 07:29 AM [facility] GLUCOSE,BLOOD-poct (STL) Specimen Type: BLOOD Comment: Test Performed by: [id number] Meter #: [id number] Ordering Provider: CARROLL HAGEN Report Released Date/Time: Jun 19, 2024 06:58 PM Reporting Lab: [address] [address] Performing Lab: [address] [address] GLUCOSE,BLOOD -poct (STL) 108 mg/dL H 72-99 Jun 09, 2024 11:48 AM [facility] MICRAL/CREAT PROFILE (STL) Specimen Type: URINE No comment entered. Ordering Provider: WELLINGTON SON Report Released Date/Time: Jun 07, 2024 01:44 PM Reporting Lab: [address] [address] Performing Lab: [address] [address] URINE ALBUMIN (PB-STL) 167.5 mg/L uACR (STL) 103 mg/g H 0-29 CREATININE URINE/OTHERS 163.4 mg/dL 63-166 Jun 07, 2024 02:22 PM [facility] BRAIN NATRIURETIC PEPTIDE Specimen Type: PLASMA No comment entered. Ordering Provider: WELLINGTON SON Report Released Date/Time: Jun 07, 2024 01:32 PM Reporting Lab: [place] [address] [facility] [address] Performing Lab: [address] [address] BRAIN NATRIURETIC PEPTIDE 198.9 pg/mL H 0-100 Jun 07, 2024 02:22 PM [facility] hsCRP Specimen Type: SERUM No comment entered. Ordering Provider: WELLINGTON SON Report Released Date/Time: Jun 07, 2024 01:42 PM Reporting Lab: [address] [address] Performing Lab: [address] [address] hsCRP 4.65 mg/L H 0-3.1 Jun 07, 2024 02:22 PM [facility] MAGNESIUM Specimen Type: PLASMA No comment entered. Ordering Provider: WELLINGTON SON Report Released Date/Time: Jun 07, 2024 01:44 PM Reporting Lab: [address] [address] Performing Lab: [address] [address] MAGNESIUM 1.7 mg/dL 1.6-2.6 Jun 05, 2024 09:00 AM [facility] FSH (STL-MA) Specimen Type: SERUM Comment: Test Performed by Sander Thornton, [employer] [facility], [address] [place] [address] Tommie Garcia M.D., Ph.D., Director of Laboratories , [place] [id number] Ordering Provider: EMILIA CALHOUN Report Released Date/Time: Jun 05, 2024 08:45 AM Reporting Lab: [facility] [address] [facility] [address] Performing Lab: [address] FSH (STL-MA) 5.5 m[IU]/mL 1.4-12.8 Jun 05, 2024 09:00 AM [facility] LUTEINIZING HORMONE Specimen Type: SERUM Comment: Test Performed by [employer] [facility], [employer] [facility], [address] [place] [address] Tommie Garcia M.D., Ph.D., Director of Laboratories , [facility] [id number] Ordering Provider: EMILIA CALHOUN Report Released Date/Time: Jun 05, 2024 08:45 AM Reporting Lab: [place] [address] [facility] [address] Performing Lab: [address] LUTEINIZING HORMONE 2.7 m[IU]/mL 1.6-15.2 Jun 05, 2024 09:00 AM [facility] PROLACTIN (L-Eff 08/15) Specimen Type: PLASMA No comment entered. Ordering Provider: EMILIA CALHOUN Report Released Date/Time: Jun 05, 2024 08:45 AM Reporting Lab: [place] [address] [facility] [address] Performing Lab: [place] [address] [facility] [address] PROLACTIN (STL-Eff 08/15) 41.98 ng/mL H 3.5-19.4 Jun 05, 2024 09:00 AM [facility] FREE T4 (MA-PB) Specimen Type: SERUM No comment entered. Ordering Provider: EMILIA CALHOUN Report Released Date/Time: Jun 05, 2024 08:45 AM Reporting Lab: [place] [address] [facility] [address] Performing Lab: [place] [address] [address] [facility] [address] FREE T4 (MA-PB) 0.78 ng/mL 0.7-1.48 Jun 05, 2024 09:00 AM [facility] TSH (MA-PB) Specimen Type: SERUM No comment entered. Ordering Provider: EMILIA CALHOUN Report Released Date/Time: Jun 05, 2024 08:45 AM Reporting Lab: [facility] [address] [facility] [address] Performing Lab: [facility] [address] [facility] [address] TSH 3.510 u[IU]/mL 0.47-5 Vital Signs: All taken on the encounter date This section contains inpatient and outpatient Vital Signs collected on the date of the Encounter. Date/Time Temperature Pulse Blood Pressure Respiratory Rate SP02 Pain Height Weight Body Mass Index Source Jun 29, 2024 12:58 PM 97.6 54 122/55 18 97 0 70 241.3 35 [facility] Social History: Smoking Status (Most current) and Tobacco Use (All prior to encounter date) This section includes the most current, and the historical, smoking and tobacco- related health factors from the [place] facility where the Encounter took place. Current Smoking Status This section includes the most current smoking, or tobacco-related health factor, from the [place] facility where the Encounter took place. Date/Time Current Smoking Status Comment Radhika angelesy Aug 11, 2016 10:34 AM QUIT TOBACCO >7 YEARS AGO [facility] Tobacco Use History This section includes a history of the smoking, or tobacco-related health factors, that were collected on or before the date of the Encounter. The data comes from the [place] facility where the Encounter took place. Date/Time Smoking Status/Tobacco Use Comment F acility Sep 30, 2015 10:12 AM QUIT TOBACCO >7 YEARS AGO [facility] Oct 29, 2014 10:23 AM QUIT TOBACCO >7 YEARS AGO [facility] Dec 27, 2013 01:27 PM QUIT TOBACCO >7 YEARS AGO [facility] Feb 24, 2013 02:01 PM LIFETIME NON-USER OF TOBACCO [facility] Feb 11, 2009 10:09 AM QUIT TOBACCO >7 YEARS AGO [facility] Oct 06, 2006 09:30 AM CURRENT NON-TOBACC O USER-HX OF USE [facility] Oct 06, 2006 09:30 AM TOBACCO TERMINATION STAGE [facility] Advance Directives: All historical and current Section Date Range: From patient's date of to the date document was created. This section includes ALL of a patient's completed or amended [place] Advance and Rescinded Directives. The entries below indicate that a directive exists for the patient, but an actual copy is not included with this document. The data comes from all [place] facilities. Date Advance Directives Provider Source Jan 19, 2017 ADVANCE DIRECTIVE DISCUSSION ERICK BARDALES [facility] Radiology Reports: +/- 30 days of the encounter Radiology Reports For cases when an order for radiology services may have been completed prior to the date of the Encounter, the report list includes the Radiology Reports that were completed up to 30 days before dateof the Encounter. For cases when an order for radiology services may have been completed after the date of the Encounter, the report list also includes the Radiology Reports that were completed up to30 days after date of the Encounter. The data comes from all [place] treatment facilities. Date/Time Radiology Report Provider Source Jun 07, 2024 02:[address] CHEST W/CONTRAS T & 3D: ABIEL WALKER [id number] -1950 M Exm Date: JUN 07, 2024@14:29 Req Phys: JOHANA REDDY Pat Loc: [facility]ONCOLOGY [facility] (Req'g Im Loc: [facility]-CT IMAGING [facility] Service: Unknown [facility] [address] [place] [address] (Case [id number] COMPLETE) CT THORAX, DIAGNOSTIC, W/CONTRAS(CT Detailed) CPT:81551 Contrast Media : Non-ionic Iodinated Reason for Study: Shortness of breath (Case 3139 COMPLETE) UNLISTED CT PROCEDURE (CT Detailed) CPT:17558 CPT Modifiers : 52 REDUCED SERVICES Clinical History: Responsible Attending: Dr. Orantes Attending Contact Number: [phone] Resident Contact Number: CT chest, high resolution Allergies listed in CPRS chart: TRAMADOL Creatinine: CREATININE 0.87 mg/dL 03/06/2024 09:52 /eGFR: STL EGFR (within one year). CREATININE 0.87 mg/dL (03/06/24 09:52) Wt: 233.1 lb [105.73 kg] (05/17/2024 08:37) History of: Renal failure, chronic or acute renal disease: NO Report Status: Verified Date Reported: JUN 07, 2024 Date Verified: JUN 07, 2024 Explosive Technician E-Sig:/ES/LISHA BRYANT Report: , [id number], [id number] INDICATION: Shortness of breath COMPARISON: None TECHNIQUE: CT chest, abdomen and pelvis with intravenous contrast. FINDINGS: Lung, Airway, Pleura: Patent central airways. No pleural effusion or pneumothorax. No pulmonary consolidation. No suspicious pulmonary nodule or mass. A 5 mm subsolid nodule in the right middle lobe (4:334 and 7:37) and a 4 mm subsolid nodule in the left lower lobe (4:219). Bilaterally scattered predominately bilateral lower lobe subpleural reticulations/reticulonodul ar opacities and dependent atelectasis, may represent mild/early fibrotic changes. Anterolateral left upper lobe and lingula multifocal tree-in-bud opacities, may represent multifocal infectious bronchiolitis. Additional lingular atelectasis/fibrotic changes are also seen. Upper neck and axilla: No suspicious thyroid lesion. No axillary lymphadenopathy. Heart: Normal size. No pericardial effusion. Moderate coronary artery atherosclerotic calcifications. Vasculature: No thoracic aortic aneurysm. Mediastinum and yesi: Multiple mildly prominent/Ebcca centimeter mediastinal lymph nodes, nonspecific. Esophagus: Mild circumferential wall thickening of the mid to lower esophagus extending to the GE junction nonspecific may represent infectious/inflammatory process, clinical correlation is recommended. Musculoskeletal structures: Mild degenerative changes of thoracic spine. ABDOMINAL AND PELVIC FINDINGS: Liver: Mild morphologic changes of chronic liver disease. No suspicious hepatic mass. No intrahepatic biliary ductal dilatation. Patent portal vein and its major branches. Gallbladder: No cholelithiasis. Spleen: Splenomegaly measures up to 15.6 cm in AP dimension. Pancreas: Pancreatic body hypoattenuating lesion approximately measures 1.1 x 1.5 x 1.2 cm (3:100, 5:41) likely representing cyst. No pancreatic ductal dilatation. Adrenal glands: Bilateral diffuse thickening without discrete nodularity. Kidneys: Bilateral symmetric renal enhancement. Bilateral small/subcentimeter hypodensities, too small for further characterize. No bilateral hydronephrosis. Vascular structures: Moderately scattered atherosclerotic calcification of the aorta and its major branches in the pelvis without aneurysmal dilatation. No aneurysm. . Retroperitoneum: No ascites or abnormal fluid collection. No pathologically enlarged retroperitoneal lymphadenopathy. Few mildly prominent portacaval/peripancreatic lymph nodes, nonspecific. Pelvis: Urinary bladder is mostly decompressed with limited evaluation in today's exam. Prostate: Mild prostatomegaly with dystrophic calcifications. Clinical correlation is suggested. No free gas or free fluid. GI: Stomach is unremarkable. No findings to suggest bowel obstruction. Musculoskeletal structures: Degenerative changes of lumbar spine. Right more than left moderate sized inguinal hernia thinning fat. Focal skin thickening at the left and right lower anterior abdominal wall, clinical correlation is suggested. Impression: 1. Splenomegaly measures up to 15.6 cm in AP dimension. Clinical correlation is suggested. Few mildly prominent portacaval/peripancreatic lymph nodes, nonspecific. Several mildly prominent/Becca centimeter mediastinal lymph nodes, nonspecific. 2. Pancreatic body hypoattenuating lesion approximately measures 1.1 x 1.5 x 1.2 cm, likely representing cyst. No pancreatic ductal dilatation. Clinical correlation and/or further evaluation with MRI suggested if clinically indicated. 3. Lung demonstrates multifocal nodularity suggestive of infectious/inflammatory process. 4. Bilaterally scattered predominately bilateral lower lobe subpleural reticulations/reticulonodul ar opacities and dependent atelectasis, may represent mild/early fibrotic changes. 5. Mild circumferential wall thickening of the mid to lower esophagus extending to the GE junction nonspecific may represent infectious/inflammatory process, clinical correlation is recommended. 6. Right more than left moderate sized inguinal hernia thinning fat. Focal skin thickening at the left and right lower anterior abdominal wall, clinical correlation is suggested. 7. Mild prostatomegaly with dystrophic calcifications. Clinical correlation is suggested. Primary Interpreting Staff: LISHA BRYANT, RADIOLOGIST (Explosive Technician) /[facility] Jun 07, 2024 02:[address] ABD PEL W/CONT & 3D: ABIEL WALKER [id number] -1950 M Exm Date: JUN 07, 2024@14:28 Req Phys: KOBY JOHANA SMITH Ruma Loc: [facility]-ONCOLOGY [facility] (Req'g Img Loc: [facility]-CT IMAGING [facility] Service: Unknown [facility] [address] [place] [address] (Case [id number] COMPLETE) CT ABDOMEN AND PELVIS W/CONTRAST (CT Detailed) CPT:36421 Contrast Media : Non-ionic Iodinated Reason for Study: enlarged spleen (Case 3137 COMPLETE) CT 3D RENDERING W INDEPENDENT WOR(CT Detailed) CPT:39986 Clinical History: Responsible Attending: Dr. Orantes Attending Contact Number: [phone] Resident Contact Number: spleenomegally, evaluation for liver, lymphadenopathy Allergies listed in CPRS chart: TRAMADOL Creatinine:CREATININE 0.87 mg/dL 03/06/2024 09:52 /eGFR: STL EGFR (within one year). CREATININE 0.87 mg/dL (03/06/24 09:52) Wt: 233.1 lb [105.73 kg] (05/17/2024 08:37) History of: Renal failure, chronic or acute renal disease: NO Report Status: Verified Date Reported: JUN 07, 2024 Date Verified: JUN 07, 2024 Explosive Technician E-Sig:/ES/LISHA BRYANT Report: , [id number], [id number] INDICATION: Shortness of breath COMPARISON: None TECHNIQUE: CT chest, abdomen and pelvis with intravenous contrast. FINDINGS: Lung, Airway, Pleura: Patent central airways. No pleural effusion or pneumothorax. No pulmonary consolidation. No suspicious pulmonary nodule or mass. A 5 mm subsolid nodule in the right middle lobe (4:334 and 7:37) and a 4 mm subsolid nodule in the left lower lobe (4:219). Bilaterally scattered predominately bilateral lower lobe subpleural reticulations/reticulonodul ar opacities and dependent atelectasis, may represent mild/early fibrotic changes. Anterolateral left upper lobe and lingula multifocal tree-in-bud opacities, may represent multifocal infectious bronchiolitis. Additional lingular atelectasis/fibrotic changes are also seen. Upper neck and axilla: No suspicious thyroid lesion. No axillary lymphadenopathy. Heart: Normal size. No pericardial effusion. Moderate coronary artery atherosclerotic calcifications. Vasculature: No thoracic aortic aneurysm. Mediastinum and yesi: Multiple mildly prominent/Becca centimeter mediastinal lymph nodes, nonspecific. Esophagus: Mild circumferential wall thickening of the mid to lower esophagus extending to the GE junction nonspecific may represent infectious/inflammatory process, clinical correlation is recommended. Musculoskeletal structures: Mild degenerative changes of thoracic spine. ABDOMINAL AND PELVIC FINDINGS: Liver: Mild morphologic changes of chronic liver disease. No suspicious hepatic mass. No intrahepatic biliary ductal dilatation. Patent portal vein and its major branches. Gallbladder: No cholelithiasis. Spleen: Splenomegaly measures up to 15.6 cm in AP dimension. Pancreas: Pancreatic body hypoattenuating lesion approximately measures 1.1 x 1.5 x 1.2 cm (3:100, 5:41) likely representing cyst. No pancreatic ductal dilatation. Adrenal glands: Bilateral diffuse thickening without discrete nodularity. Kidneys: Bilateral symmetric renal enhancement. Bilateral small/subcentimeter hypodensities, too small for further characterize. No bilateral hydronephrosis. Vascular structures: Moderately scattered atherosclerotic calcification of the aorta and its major branches in the pelvis without aneurysmal dilatation. No aneurysm. . Retroperitoneum: No ascites or abnormal fluid collection. No pathologically enlarged retroperitoneal lymphadenopathy. Few mildly prominent portacaval/peripancreatic lymph nodes, nonspecific. Pelvis: Urinary bladder is mostly decompressed with limited evaluation in today's exam. Prostate: Mild prostatomegaly with dystrophic calcifications. Clinical correlation is suggested. No free gas or free fluid. GI: Stomach is unremarkable. No findings to suggest bowel obstruction. Musculoskeletal structures: Degenerative changes of lumbar spine. Right more than left moderate sized inguinal hernia thinning fat. Focal skin thickening at the left and right lower anterior abdominal wall, clinical correlation is suggested. Impression: 1. Splenomegaly measures up to 15.6 cm in AP dimension. Clinical correlation is suggested. Few mildly prominent portacaval/peripancreatic lymph nodes, nonspecific. Several mildly prominent/Becca centimeter mediastinal lymph nodes, nonspecific. 2. Pancreatic body hypoattenuating lesion approximately measures 1.1 x 1.5 x 1.2 cm, likely representing cyst. No pancreatic ductal dilatation. Clinical correlation and/or further evaluation with MRI suggested if clinically indicated. 3. Lung demonstrates multifocal nodularity suggestive of infectious/inflammatory process. 4. Bilaterally scattered predominately bilateral lower lobe subpleural reticulations/reticulonodul ar opacities and dependent atelectasis, may represent mild/early fibrotic changes. 5. Mild circumferential wall thickening of the mid to lower esophagus extending to the GE junction nonspecific may represent infectious/inflammatory process, clinical correlation is recommended. 6. Right more than left moderate sized inguinal hernia thinning fat. Focal skin thickening at the left and right lower anterior abdominal wall, clinical correlation is suggested. 7. Mild prostatomegaly with dystrophic calcifications. Clinical correlation is suggested. Primary Interpreting Staff: LISHA BRYANT, RADIOLOGIST (Explosive Technician) /LISHA [facility] Encounter Notes: All associated encounter notes This section contains the clinical notes associated to the Encounter. Date/Time Encounter Note(s) Provider Source Jun 29, 2024 11:57 AM CARDIOLOGY NURSING PREPROCEDURE NOTE: LOCAL TITLE: ANTHROPOLOGY INSTRUCTOR PROCEDURE STL STANDARD TITLE: CARDIOLOGY NURSING PREPROCEDURE NOTE DATE OF NOTE: JUN 29, 2024@11:57 ENTRY DATE: JUN 29, 2024@11:57:42 AUTHOR: MATI WOLF EXP COSIGNER: URGENCY: STATUS: COMPLETED ANTHROPOLOGY INSTRUCTOR PROCEDURE STL Has ADDENDA CARDIOLOGY GAME AGENT - EMILE CASE REPORT Patient Information Patient Name: Abiel Walker Date of : 1950 Age: 74 years Study Information Scheduled Start Study Start 06/29/2024 06/29/2024 9:55 Facility Department [facility] Gutierrez - Echo Lab Physician and Clinical Staff Initial MD: Zane Mccoy Monitored Sedation Nurse: Mati Wolf MEDICATION TOTALS 1MG VERSED 25MCG FENTANYL Vitals Summary Time HR NIBP SpO2 Resp EtCO2 Pain Level Gilmore Comment 10:05:35 77 164/87 100.0 23 35 0 2 10:10:37 62 148/87 100.0 16 33 0 2 10:15:39 68 118/60 98.0 13 29 0 3 10:20:54 67 118/72 98.0 14 26 0 3 10:25:30 65 117/66 98.0 14 28 0 3 10:30:30 66 118/81 98.0 14 29 0 3 10:35:17 61 118/76 95.0 15 35 0 3 10:40:47 58 112/78 96.0 15 32 0 3 10:45:19 63 117/80 97.0 13 34 0 2 10:50:49 63 148/79 99.0 19 35 0 2 Chronological Log Time Study Chronological Log 9:55:13 EMILE 9:55:21 Patient arrives to prep room from home with driver guard 9:55:28 NPO Since: 0000 9:55:31 Allergy list reviewed with patient. 9:55:34 IV site: 22G RAC 9:55:39 IV Fluids: 500mL NS KVO 10:05:35 HR=77 bpm, RBFK=095/87 mmhg, IlU0=077 %, Resp=23 B/min, EtCO2=35 mmHg, Pain=0, Gilmore=2 10:06:11 Attending MD present: Dr. Mccoy 10:06:18 Informed consent obtained on IMED in CPRS by physician. 10:06:22 Time out including patient, procedure & site verification took place with staff, physician and patient prior to start of case. 10:06:25 Lidocaine 4% 10 ml prep completed as ordered by MD. Read back and confirmed. 10:06:27 Oxygen applied via nasal cannula at: 2L 10:06:31 probe number: [id number] 10:09:48 1 mg VERSED given in lab by Mati Wolf in Right Arm via Peripheral IV. Ordered by Zane Mccoy. Reason: Verbal order, read back and confirmed. 10:09:50 25 mcg FENTANYL given in lab by Mati Wolf in Right Arm via Peripheral IV. Ordered by Zane Mccoy. Reason: Verbal order, read back and confirmed. 10:10:37 HR=62 bpm, PDCR=634/87 mmhg, CuN7=311.0 %, Resp=16 B/min, EtCO2=33 mmHg, Pain=0, Gilmore=2 10:15:39 HR=68 bpm, ACUP=068/60 mmhg, SpO2=98 %, Resp=13 B/min, EtCO2=29 mmHg, Pain=0, Gilmore=3 10:19:02 probe insertion 10:20:54 HR=67 bpm, LHGM=502/72 mmhg, SpO2=98 %, Resp=14 B/min, EtCO2=26 mmHg, Pain=0, Gilmore=3 10:25:30 HR=65 bpm, CSHC=465/66 mmhg, SpO2=98 %, Resp=14 B/min, EtCO2=28 mmHg, Pain=0, Gilmore=3 10:30:30 HR=66 bpm, EGQI=846/81 mmhg, SpO2=98 %, Resp=14 B/min, EtCO2=29 mmHg, Pain=0, Gilmore=3 10:31:41 Bubble Study 10:35:17 HR=61 bpm, NUMZ=228/76 mmhg, SpO2=95 %, Resp=15 B/min, EtCO2=35 mmHg, Pain=0, Gilmore=3 10:40:37 probe removal 10:40:47 HR=58 bpm, HEWJ=169/78 mmhg, SpO2=96 %, Resp=15 B/min, EtCO2=32 mmHg, Pain=0, Gilmore=3 10:45:19 HR=63 bpm, FGUV=565/80 mmhg, SpO2=97.0 %, Resp=13 B/min, EtCO2=34 mmHg, Pain=0, Gilmore=2 10:49:37 Narcotics wasted in Pyxis with Mati Wolf, RN and Pito Donis RN 10:50:49 HR=63 bpm, NKRH=591/79 mmhg, SpO2=99 %, Resp=19 B/min, EtCO2=35 mmHg, Pain=1, Gilmore=2 10:53:27 IV Removal: Hemostasis acheived and catheter intact. 10:53:47 Procedure results discussed with Patient and Family by Barron 10:57:[address] Mccoy, pt ok for discharge. Alert and oriented x4. Respirations even and unlabored. Ambulation at baseline. Family at bedside. Total of 450mL NS infused. Discharge instructions reviewed with pt and family with understanding verbalized. No signs of complications. 10:58:06 Pt discharged to: home with family End Study - No Complications Post Anesthesia Sedation Score - Phase 1 Phase 1 Discharge Criteria TOTAL SCORE=14 Oxygenation 2 Points - SpO2 greater than or equal to 94% or baseline on room air PACU Respiratory Status 2 Points - Normal breathing and deep cough on command Circulatory Status 2 Points - BP/HR less than 20% or 20 mmHg of baseline Level of Consciousness 2 Points - Fully awake or easily awakened Pain 2 Points - Minimal or none - Pain Score 0-4 or at tolerable level or at baseline Nausea/Vomiting 2 Points - Minimal or none Level of Activity 2 Points - Able to move all extremities voluntarily or on command or moves all extremities with the exception of extremity treated with peripheral nerve block or patient baseline [facility] Phase 1 time documented Time: 1038 Post Anesthesia Sedation Score - Phase 2 Phase 2 Discharge Criteria TOTAL SCORE=10 Pain 2 Points - Minimal or none - Pain Score 0-4 or at tolerable level or at baseline Nausea/Vomiting 2 Points - Minimal or none Circulatory Status 2 Points - BP/HR less than 20% or 20 mmHg of baseline Activity and Mental Status 2 Points - Oriented x3 AND has steady gait (at baseline for non-ambulating patients) Surgical Site/Dressing 2 Points - Dry and Clean or Not Applicable (for example, Endoscopy) [facility] Phase 2 time documented Time: 1038 The following discharge instructions were reviewed with the patient and family with understanding verbalized. A paper copy was given for further reference: Echo Lab DISCHARGE INSTRUCTIONS You have just had a diagnostic and/or therapeutic procedure performed under moderate or general sedation. It is not uncommon to have trouble remembering what happened during your procedure, and/or feel tired for the rest of the day. Therefore, you must return home with a responsible adult who will remain with you overnight. You should not take public transit after the procedure. Do not drive, use machinery or power tools or sign important documents or make important legal or financial decisions for the next 24 hours. You can resume normal activities 24 hours after the end of the procedure. If a Transesophageal Echo procedure was performed: 1. A numbing gel or spray was used on your throat for the procedure. Do not eat or drink anything for 2 hours after the end of your procedure. After 2 hours have passed, you can start with sips of water while sitting upright to be sure you are able to swallow well. If you do not have any trouble swallowing, you can start your regular diet. 2. It is normal to feel soreness in your throat. This will usually resolve in 1 to 2 days. In the meantime, drink plenty of water and you can use cough drops to soothe your throat. 3. Sometimes you can have blood tinged phlegm or saliva, this should resolve in 24 hours. 4. Dont drink alcoholic beverages or smoke for 24 hours after your procedure. If a Cardioversion procedure was performed: 1. You may experience chest skin irritation; this will usually resolve within 2 days. 2. You will be prescribed a blood thinner, it is especially important to be compliant with this medication for at least 4 weeks, to reduce the risk of stroke. Notify your physician or go directly to the emergency room if: 1. Fever over 38.5??C or 101.3??F, or shakes or chills 2. Difficulty swallowing that lasts for than 2 hours after the end of the procedure 3. Shortness of breath or difficulty breathing, or heart rate over 100 beats per minute 4. Blood in your phlegm or saliva more than 24 hours after your procedure 5. Severe abdominal pain or abdominal distention 6. Persistent nausea, vomiting, or vomiting blood 7. Dizziness, light headedness, confusion, numbness, tingling, double vision, exhaustion, extreme weakness, sweating, or pale/blue skin YOU MAY REACH ECHO LAB STAFF ON MON-WED 7:30am-4pm AT [phone] [place] , EXT. [phone] or [phone]. After 4pm and on weekends a Cardiology physician can be reached by calling [phone] or . Ask the chief lock tender operator to speak with the statistician, on-call . /camryn WOLF RN ANTHROPOLOGY INSTRUCTOR Signed: 06/30/2024 07:46 Receipt Acknowledged By: 06/30/2024 08:30 /camryn MCCOY MD,[facility] STAFF CELLULAR BIOLOGIST 06/30/2024 ADDENDUM STATUS: COMPLETED I have reviewed this note and have ordered the medications/treatments as recorded /camryn MCCOY MD,[facility] STAFF CELLULAR BIOLOGIST Signed: 06/30/2024 08:31 MATI WOLF [facility] Jun 29, 2024 10:58 AM CARDIOLOGY DIAGNOSTIC STUDY REPORT: LOCAL TITLE: CP ECHO EMILE ST STANDARD TITLE: CARDIOLOGY DIAGNOSTIC STUDY REPORT DATE OF NOTE: JUN 29, 2024@10:58:08 ENTRY DATE: JUN 29, 2024@10:58:08 AUTHOR: CLINICAL,DEVICE PRO EXP COSIGNER: URGENCY: STATUS: COMPLETED DOCUMENT IN VISTA IMAGING SEE FULL REPORT IN [facility]ISTA [facility]ING SIGNATURE NOT REQUIRED SEE SIGNATURE IN VISTA IMAGING ([employer] EMILE (P)) AUTO-INSTRUMENT DIAGNOSIS Procedure: EMILE CP EMILE ECHOCARDIOGRAM YASH Release Status: Released Off-Line Verified Date Verified: Jun 29, 2024@10:57:13 Administrative Closure: 06/29/2024 by: CLINICAL,DEVICE PROXY SERVICE CLINICAL,DEVICE PROXY SERVICE [facility] Jun 29, 2024 09:46 AM CARDIOLOGY PREPROCEDURE NOTE: LOCAL TITLE: CARDIOLOGY PRE-PROCEDURAL NOTE ST STANDARD TITLE: CARDIOLOGY PREPROCEDURE NOTE DATE OF NOTE: JUN 29, 2024@09:46 ENTRY DATE: JUN 29, 2024@09:46:38 AUTHOR: ZANE MCCOY EXP COSIGNER: URGENCY: STATUS: COMPLETED PRE-SEDATION ASSESSMENT Date of study: JUN 29, 2024 Name: ABIEL WALKER Date of : [birth year] Height: 70 in [177.8 cm] (06/19/2024 06:20) Weight: 234 lb [106.14 kg] (06/19/2024 06:20) Body Surface Area (BSA) = 2.29 History and indication: 74 year-old MALE with 3vCAD and mild to mod MR. Would like EMILE to better evaluate MR prior to CABG. History & Physical by Lissette Son on 06/07/24 was reviewed. There is no significant changes in patient's status. He was found to have 3v0CAD per cath 06/19/24. His chart is reviewed. History is taken from the patient. Patient denies exertional chest pain, palpitation. No orthopnea, PND or leg swelling. No syncope, dizziness, claudication. Last PO intake more than 6 hours ago. Past Medical History: 1) Asthma (SNOMED CT 415988931) 2) Gastro-esophageal reflux disease (SNOMED CT 534170828) 3) Peptic Ulcer Disease * (ICD-9-CM 533.90) 4) Hypertension (SNOMED CT 87071145) 5) Neoplasm of pituitary gland (SNOMED CT 637967665) 6) Hyperlipidemia (SNOMED CT 47865938) 7) Erectile dysfunction associated with type 2 diabetes mellitus 8) Osteoarthritis of knee 9) Diabetes mellitus with neuropathy 10) Low back pain 11) Obesity 12) Patellofemoral syndrome of right knee 13) History of left total knee replacement 14) History of arthroplasty of right knee 15) Exposure to potentially hazardous substance 16) Fatty liver 17) Heart failure 18) Thrombocytopenia Current Medication: Inpatient meds: No medications found. Active Outpatient Medications (including Supplies): Active Outpatient Medications Status ========= 1) ACCU-CHEK GUIDE (GLUCOSE) TEST STRIP USE 1 STRIP FOR HOLD BLOOD TEST TWICE A DAY ALTERNATING TIMES EACH DAY *STABLE INSULIN THERAPY* March 2) ALBUTEROL 90MCG (CFC-F) 200D ORAL INHL INHALE 1 PUFF ACTIVE BY ORAL INHALATION FOUR TIMES A DAY NEEDED FOR BREATHING. SHAKE WELL. RINSE MOUTHPIECE FREQUENTLY TO PREVENT CLOGGING. 3) AMMONIUM LACTATE 12% CREAM APPLY LIGHTLY TO AFFECTED ACTIVE AREA(S) TWICE A DAY EXTERNAL USE ONLY. DO NOT APPLY TO RED, ITCHY, OR SORE SKIN. 4) ATORVASTATIN CALCIUM 40MG TAB TAKE ONE AND ONE-HALF ACTIVE TABLETS BY MOUTH EVERY EVENING 5) BUMETANIDE 1MG TAB TAKE ONE-HALF TABLET BY MOUTH ONCE ACTIVE A DAY NEEDED PER PROVIDER INSTRUCTIONS 6) CARBOXYMETHYLCELLULOSE NA 0.5% OPH SOLN INSTILL 1 ACTIVE DROP IN BOTH EYES FOUR TIMES A DAY NEEDED FOR DRY EYE(S) 7) CARVEDILOL 6.25MG TAB TAKE ONE-HALF TABLET BY MOUTH ACTIVE TWICE A DAY HEART FAILURE TAKE WITH FOOD. 8) DEXTROSE 24GM/31GM SQUEEZE TUBE TAKE 1 TUBE BY MOUTH ACTIVE NEEDED FOR LOW BLOOD SUGAR REPEAT DOSE IF HYPOGLYCEMIA CONTINUES 15 MINUTES AFTER THE FIRST DOSE. 9) DULOXETINE HCL 60MG EC CAP TAKE ONE CAPSULE BY MOUTH ACTIVE ONCE A DAY FOR NERVE PAIN DO NOT ABRUPTLY DISCONTINUE MEDICATION. 10) GLUCOSE SENSOR FREESTYLE RADHIKA 3 USE SENSOR EVERY ACTIVE 2 WEEKS FOR BLOOD SUGAR MONITORING CHANGE SENSOR/SITE EVERY 14 DAYS. TO REPLACE SENSOR FOR ANY REASON OR FOR TECHNICAL HELP PLEASE CALL RAD[facility] HELP DESK: -SPECIFIC PHONE NUMBER: [phone]). 11) INSULIN,ASPART(EQV-NOVLG)100UN/M L FLXPEN INJECT 6 ACTIVE UNITS UNDER THE SKIN BEFORE SUPPER FOR DIABETES ADMINISTER 10 MINUTES BEFORE FOOD DIRECTED. REFRIGERATE UN-OPENED PENS. DISCARD CARTRIDGE 28 DAYS AFTER OPENING. 12) INSULIN,GLARG(TOUJEO MAX) 300 UNT/ML 3ML INJECT 90 ACTIVE UNITS UNDER THE SKIN ONCE A DAY FOR DIABETES ADMINISTER AT SAME TIME EACH DAY DIRECTED. DISCARD ANY OPEN CARTRIDGE AFTER 42 DAYS. *HIGH DOSE INSULIN* 13) LANCET,SOFTCLIX USE LANCET FOR BLOOD TEST TWICE A DAY ACTIVE FOR BLOOD SUGAR MONITORING USE DIRECTED 14) MELOXICAM 7.5MG TAB TAKE ONE TABLET BY MOUTH ONCE A ACTIVE DAY NEEDED FOR OSTEOARTHRITIS 15) METFORMIN HCL 500MG 24HR SA TAB TAKE TWO TABLETS BY ACTIVE MOUTH TWICE A DAY FOR BLOOD SUGAR CONTROL. TAKE WITH FOOD. AVOID ALCOHOL. DISCONTINUE BEFORE GETTING XRAY DYE. 16) METHOCARBAMOL 500MG TAB TAKE 1 TABLET BY MOUTH TWICE ACTIVE DAILY NEEDED FOR MUSCLE SPASM 17) MULTIVITAMIN CAP/TAB TAKE 1 TABLET BY MOUTH ONCE A ACTIVE DAY FOR NUTRITION/DIETARY SUPPLEMENTATION 18) NEEDLE,PEN 31G,5MM USE 1 NEEDLE UNDER THE SKIN TWICE ACTIVE A DAY FOR LONG ACTING INSULIN AND MEALTIME INSULIN 19) OMEPRAZOLE 20MG EC CAP TAKE ONE CAPSULE BY MOUTH ACTIVE (S) EVERY MORNING TO LOWER STOMACH ACID. TAKE 30 MINUTES PRIOR TO FOOD. 20) PREGABALIN 200MG ORAL CAP TAKE ONE CAPSULE BY MOUTH ACTIVE TWICE A DAY 21) SACUBITRIL 24MG/VALSARTAN 26MG TAB TAKE 1 TABLET BY ACTIVE MOUTH TWICE A DAY FOR HEART FAILURE 22) SEMAGLUTIDE 1MG/0.75ML INJ PEN 3ML INJECT 1MG UNDER ACTIVE THE SKIN EVERY WEEK FOR DIABETES 23) TRANSPARENT DRESSING 2 3/8IN X 2 3/4IN USE/APPLY ACTIVE DRESSING(S) TO AFFECTED AREA(S) TWO TIMES PER WEEK FOR WOUND CARE Active Non-VA Medications Status ========= 1) Non-VA NAPROXEN NA 220MG TAB 220MG BY MOUTH ACTIVE NEEDED 24 Total Medications All meds were reviewed with patient. Allergy: TRAMADOL Family history: No premature coronary disease or sudden Social history: TOBACCO USE - former ALCOHOL USE - No COCCAINE - No Other receation drugs - No Review of systems: All systems reveiwed are negative except for HPI. Physical Exam: Vital: reviewed as documented in the chart. General: Patient is in no acute distress. HEENT: No xanthelasma or oral mucosa cyanosis Neck: supple, no jugular vein distention or thyroid enlargement. Respiratory: Patient breaths comfortable. Lung is clear to auscultation and percussion bilaterally. No crackles and wheezing. Cardiovascular: The point of maximal impact is not displaced. Heart has regular rate and rhythm. normal S1 and S2. II/ holosystolic murmurs at apex. No rubs or gallops. There are no bruits in carotid arteries, abdominal aorta or femoral arteries bilaterally. Pulses in femoral arteries and pedal arteries are ++ bilaterally. There are no peripheral edema or varicosities. Abdomen: soft, no tenderness or masses. No hepatospleenomegaly. Extremities: No clubbing or cyanosis. Skin: No rash, subcutaneous xanthomas. Neurological/Psychiatric: Alert and orient to time, place and person. Normal affect and mood. Diagnostic data: HGB A1C (last):HGA1C 7.0 H % 03/06/2024 09:52 LDL(DIRECT):____ HDL: 34 mg/dL L (04/07/24 11:40) CHOLESTEROL 180 mg/dL 04/07/2024 11:40 CALCULATED LDL 117 mg/dL 04/07/2024 11:40 Triglycerides:145 mg/dL (04/07/24 11:40) WBC:5.1 10*3/uL (06/19/24 07:30) RBC:5.31 10*6/uL (06/19/24 07:30) HGB 14.2 g/dL 06/19/2024 07:30 HCT:43.8 % (06/19/24 07:30) PLT 107 L 10*3/uL 06/19/2024 07:30 Chem 7 GLUCOSE 106 H mg/dL 06/19/2024 07:30 BUN: 11.9 mg/dL (06/19/24 07:30) CREATININE 0.85 mg/dL 06/19/2024 07:30 SODIUM 141 mEq/L 06/19/2024 07:30 POTASSIUM 4.4 mEq/L 06/19/2024 07:30 CHLORIDE 110 mEq/L H (06/19/24 07:30) CARBON DIOXIDE 22 mEq/L 06/19/2024 07:30 Tele today was personally reviewed and showed sinus rhythm. ASA score: 3 mallampati score: 3 Has the patient had a analgesia/sedation in the past? Yes Has the patient had an adverse reaction to analgesia/sedation? No Asseessment: 1. Mild- mod MR Plan: Proceed with EMILE with moderate sedation. /shen/ ZANE MCCOY MD,[facility] STAFF CELLULAR BIOLOGIST Signed: 06/29/2024 10:12 ZANE MCCOY [facility]
--- OUTSIDE RECORDS SUMMARY | 2024-11-17 03:43 | XMS_ITS | Encounter Summary ---
Author Name [facility] [place] Address [address] [place] [address] Care Team Providers Care Rn Call Center Name Role Phone MANUEL BAIRD Primary Care [...] PART A Apr 08, 2017 PART A [id number] ASHLEY WALKER PATIENT Selected Encounter This section includes the information on record at [place] for the Encounter. Date/Time Encounter Type Encounter Description Reason Pro vider Source Jun 29, 2024 10:06 AM Outpatient Encounter EVENT (HISTORICAL) IHE Encounter Template Text not used by [facility] Plan of Treatment: Future Appointments (+ 6 months) and Future Tests (+/- 45 days) The Plan of Treatment section includes future care activities for the patient from all [facility] treatment[facility]ilities. This section includes future appointments and future orders which are active, pending or scheduled. Future Appointments This section includes appointments that were scheduled to occur 6 months from the date of the Encounter, up to a maximum of 20 appointments. The data comes from all [facility]. Appointment Date/Time Appointment Type Appointme nt Facility Name Jul 03, 2024 10:30 AM AMBULATORY - MEDICINE [facility] Jul 14, 2024 12:54 PM AMBULATORY - SURGERY [facility] Jul 20, 2024 10:00 AM AMBULATORY - MEDICINE [facility] Aug 02, 2024 09:45 AM AMBULATORY - MEDICINE [facility] Aug 24, 2024 10:00 AM AMBULATORY - MEDICINE [facility] Aug 24, 2024 10:30 AM AMBULATORY - MEDICINE [facility] Aug 30, 2024 09:30 AM AMBULATORY - MEDICINE [facility] Aug 31, 2024 01:00 PM AMBULATORY - SURGERY [facility] Sep 21, 2024 01:30 PM AMBULATORY - MEDICINE [facility] Sep 22, 2024 11:00 AM AMBULATORY - MEDICINE [facility] Sep 29, 2024 12:30 PM AMBULATORY - MEDICINE [facility] Oct 02, 2024 09:30 AM AMBULATORY - MEDICINE [facility] Nov 20, 2024 10:30 AM AMBULATORY - SURGERY [facility] Nov 21, 2024 10:00 AM AMBULATORY - NONE [facility] Dec 11, 2024 10:30 AM AMBULATORY - MEDICINE [facility] Active, Pending, and Scheduled Orders This section includes a listing of several types of active, pending, and scheduled orders, including clinic medications orders, diagnostic test orders, procedure orders and consult orders; where the start date of the order is 45 days before the date of the Encounter or 45 days after the date of theEncounter. The data comes from all [facility]. Test Date/Time Test Type Test Details Facility Name Aug 02, 2024 12:00 AM Laboratory - Chemistry Order CBC BLOOD STAT SP [facility] Aug 02, 2024 12:00 AM Laboratory - Chemistry Order COMPREHENSIVE METABOLIC PANEL GREEN LI/HEP BLD/PLAS PLASMA SP [facility] Lab Results: +/- 30 days of the encounter This section includes the Chemistry and Hematology Lab Results on record with [place] for the patient. Radiology Reports and Pathology Reports are provided separately, in subsequent sections. Lab Results This section contains the Chemistry/Hematology Results that were resulted 30 days before or 30 daysafter the date of the Encounter. Date/Time Source Result Type Result - Unit Interpretation Reference Range Comment Jul 20, 2024 11:18 AM [facility] APTT Specimen Type: PLASMA No comment entered. Ordering Provider: MANUEL BAIRD Report Released Date/Time: Jul 19, 2024 04:00 PM Reporting Lab: [facility] [address] [facility] [address] Performing Lab: [address] [address] APTT 32.1 s 26.7-39.9 Jul 20, 2024 11:18 AM [facility] PT/INR NEW (ST-MS) Specimen Type: PLASMA No comment entered. Ordering Provider: MANUEL BAIRD Report Released Date/Time: Jul 19, 2024 04:00 PM Reporting Lab: [facility] [address] [facility] [address] Performing Lab: [facility] [address] [place] [phone] PROTIME 14.4 s H 9.4-12.5 INR VALUE 1.3 {INR} Jul 20, 2024 11:18 AM [facility] CBC Specimen Type: BLOOD No comment entered. Ordering Provider: MANUEL BAIRD Report Released Date/Time: Jul 19, 2024 04:00 PM Reporting Lab: [facility] [address] [place] [phone] Performing Lab: [facility] [address] [place] [phone] WBC 4.7 10*3/uL 3.6-11.2 RBC 4.86 10*6/uL [...] 1.6 1.0-7.0 Jul 17, 2024 08:02 AM [facility] BASIC METABOLIC PANEL Specimen Type: PLASMA Comment: No hemolysis noted. Ordering Provider: WELLINGTON SERNA Report Released Date/Time: Jun 07, 2024 01:43 PM Reporting Lab: [address] [address] Performing Lab: [address] [address] CREATININE 0.85 mg/dL 0.7-1.3 UREA NITROGEN 15.2 mg/dL 9.0-25.0 GLUCOSE 120 mg/dL H 72-99 SODIUM 141 meq/L 136-145 POTASSIUM 4.4 meq/L 3.5-5 CHLORIDE 107 meq/L 98-107 CARBON DIOXIDE 26 meq/L 22-31 CALCIUM 9.2 mg/dL 8.4-10.4 EGFR (CKD-EPI 2020) 92.3 >60 Jun 19, 2024 07:30 AM [facility] PT/INR NEW (STL-MS) Specimen Type: PLASMA No comment entered. Ordering Provider: ROSE PITTS Report Released Date/Time: Jun 12, 2024 10:14 AM Reporting Lab: [address] [address] Performing Lab: [place] [phone] PROTIME 13.3 s H 9.4-12.5 INR VALUE 1.2 {INR} Jun 19, 2024 07:30 AM [facility] BASIC METABOLIC PANEL Specimen Type: PLASMA Comment: K result may show a positive bias due to hemolysis. Specimen slightly hemolyzed. Ordering Provider: ROSE PITTS Report Released Date/Time: Jun 12, 2024 10:14 AM Reporting Lab: [address] [address] Performing Lab: [address] [address] CREATININE 0.85 mg/dL 0.7-1.3 UREA NITROGEN 11.9 mg/dL 9.0-25.0 GLUCOSE 106 mg/dL H 72-99 SODIUM 141 meq/L 136-145 POTASSIUM 4.4 meq/L 3.5-5 CHLORIDE 110 meq/L H 98-107 CARBON DIOXIDE 22 meq/L 22-31 CALCIUM 9.9 mg/dL 8.4-10.4 EGFR (CKD-EPI 2020) 92.3 >60 Jun 19, 2024 07:30 AM [facility] CBC Specimen Type: BLOOD No comment entered. Ordering Provider: ROSE PITTS AEJulián Report Released Date/Time: Jun 12, 2024 10:14 AM Reporting Lab: [address] [address] Performing Lab: [address] [address] WBC 5.1 10*3/uL 3.6-11.2 RBC 5.31 10*6/uL [...] 2.3 1.0-7.0 Jun 19, 2024 07:29 AM [facility] GLUCOSE,BLOOD-poct (STL) Specimen Type: BLOOD Comment: Test Performed by: [id number] Meter #: [id number] Ordering Provider: CARROLL HAGEN Report Released Date/Time: Jun 19, 2024 06:58 PM Reporting Lab: [address] [address] Performing Lab: [address] [address] GLUCOSE,BLOOD -poct (STL) 108 mg/dL H 72-99 Jun 09, 2024 11:48 AM [facility] MICRAL/CREAT PROFILE (STL) Specimen Type: URINE No comment entered. Ordering Provider: WELLINGTON SERNA Report Released Date/Time: Jun 07, 2024 01:44 PM Reporting Lab: [address] [address] Performing Lab: [address] [address] URINE ALBUMIN (PB-STL) 167.5 mg/L uACR (STL) 103 mg/g H 0-29 CREATININE URINE/OTHERS 163.4 mg/dL 63-166 Jun 07, 2024 02:22 PM [facility] hsCRP Specimen Type: SERUM No comment entered. Ordering Provider: WELLINGTON SERNA Report Released Date/Time: Jun 07, 2024 01:42 PM Reporting Lab: [address] [address] Performing Lab: [facility] [address] [facility] [address] hsCRP 4.65 mg/L H 0-3.1 Jun 07, 2024 02:22 PM [facility] MAGNESIUM Specimen Type: PLASMA No comment entered. Ordering Provider: WELLINGTON SERNA Report Released Date/Time: Jun 07, 2024 01:44 PM Reporting Lab: [place] [address] [address] [facility] [address] Performing Lab: [place] [address] [facility] [address] MAGNESIUM 1.7 mg/dL 1.6-2.6 Jun 07, 2024 02:22 PM [facility] BRAIN NATRIURETIC PEPTIDE Specimen Type: PLASMA No comment entered. Ordering Provider: WELLINGTON SERNA Report Released Date/Time: Jun 07, 2024 01:32 PM Reporting Lab: [place] [address] [facility] [address] Performing Lab: [place] [address] [facility] [address] BRAIN NATRIURETIC PEPTIDE 198.9 pg/mL H 0-100 Jun 05, 2024 09:00 AM [facility] FSH ([facility]) Specimen Type: SERUM Comment: Test Performed by [facility] [place], [facility], [address] [place] [address] Tommie Garcia M.D., Ph.D., Director of Laboratories , [facility] [id number] Ordering Provider: EMILIA CALHOUN Report Released Date/Time: Jun 05, 2024 08:45 AM Reporting Lab: [address] [address] Performing Lab: [facility] [address] [facility] FSH (L-MS) 5.5 m[IU]/mL 1.4-12.8 Jun 05, 2024 09:00 AM [facility] LUTEINIZING HORMONE Specimen Type: SERUM Comment: [facility], [facility], [address] [place], [place] Tommie Garcia M.D., Ph.D., Director of Laboratories , [place] [id number] Ordering Provider: EMILIA CALHOUN Report Released Date/Time: Jun 05, 2024 08:45 AM Reporting Lab: [facility] [address] [facility] [address] Performing Lab: [facility] [address] [facility] LUTEINIZING HORMONE 2.7 m[IU]/mL 1.6-15.2 Jun 05, 2024 09:00 AM [facility] PROLACTIN (STL-Eff 08/15) Specimen Type: PLASMA No comment entered. Ordering Provider: EMILIA CALHOUN Report Released Date/Time: Jun 05, 2024 08:45 AM Reporting Lab: [facility] [address] [facility] [address] Performing Lab: [facility] [address] [facility] [address] PROLACTIN (STL-Eff 08/15) 41.98 ng/mL H 3.5-19.4 Jun 05, 2024 09:00 AM [facility] TSH (MA-PB) Specimen Type: SERUM No comment entered. Ordering Provider: EMILIA CALHOUN Report Released Date/Time: Jun 05, 2024 08:45 AM Reporting Lab: [facility] [address] [facility] [address] Performing Lab: [facility] [address] [facility] [address] TSH 3.510 u[IU]/mL 0.47-5 Jun 05, 2024 09:00 AM [facility] FREE T4 (MA-PB) Specimen Type: SERUM No comment entered. Ordering Provider: EMILIA CALHOUN Report Released Date/Time: Jun 05, 2024 08:45 AM Reporting Lab: [facility] [address] [facility] [address] Performing Lab: [facility] [address] [facility] [address] FREE T4 (MA-PB) 0.78 ng/mL 0.7-1.48 Vital Signs: All taken on the encounter date This section contains inpatient and outpatient Vital Signs collected on the date of the Encounter. Date/Time Temperature Pulse Blood Pressure Respiratory Rate SP02 Pain Height Weight Body Mass Index Source Jun 29, 2024 12:58 PM 97.6 54 122/55 18 97 0 70 241.3 35 [facility] Social History: Smoking Status (Most current) and Tobacco Use (All prior to encounter date) This section includes the most current, and the historical, smoking and tobacco- related health factors from the [place] facility where the Encounter took place. Current Smoking Status This section includes the most current smoking, or tobacco-related health factor, from the [place] facility where the Encounter took place. Date/Time Current Smoking Status Comment Radhika goins Aug 11, 2016 10:34 AM QUIT TOBACCO >7 YEARS AGO [facility] Tobacco Use History This section includes a history of the smoking, or tobacco-related health factors, that were collected on or before the date of the Encounter. The data comes from the [place] facility where the Encounter took place. Date/Time Smoking Status/Tobacco Use Comment F acility Sep 30, 2015 10:12 AM QUIT TOBACCO >7 YEARS AGO [facility] Oct 29, 2014 10:23 AM QUIT TOBACCO >7 YEARS AGO [facility] Dec 27, 2013 01:27 PM QUIT TOBACCO >7 YEARS AGO [facility] Feb 24, 2013 02:01 PM LIFETIME NON-USER OF TOBACCO [facility] Feb 11, 2009 10:09 AM QUIT TOBACCO >7 YEARS AGO [facility] Oct 06, 2006 09:30 AM CURRENT NON-TOBACC O USER-HX OF USE [facility] Oct 06, 2006 09:30 AM TOBACCO TERMINATION STAGE [facility] Advance Directives: All historical and current Section Date Range: From patient's date of to the date document was created. This section includes ALL of a patient's completed or amended [place] Advance and Rescinded Directives. The entries below indicate that a directive exists for the patient, but an actual copy is not included with this document. The data comes from all [place] facilities. Date Advance Directives Provider Source Jan 19, 2017 ADVANCE DIRECTIVE DISCUSSION ERICK BARDALES [facility] Radiology Reports: +/- 30 days of the [...] the Encounter. The data comes from all [place] treatment facilities. Date/Time Radiology Report Provider Source Jun 07, 2024 02:[address] CHEST W/CONTRAS T & 3D: CHET WALKER [id number] -[id number] M Ex Date: JUN 07, 2024@14:29 Req Phys: JOHANA REDDY Loc: [facility]-ONCOLOGY [facility]I (Req'g Img Loc: [facility]-CT IMAGING [facility] Service: [facility], [facility] [address] [place] [address] (Case [id number] COMPLETE) CT THORAX, DIAGNOSTIC, W/CONTRAS(CT Detailed) CPT:02696 Contrast Media : Non-ionic Iodinated Reason for Study: Shortness of breath (Case [id number] COMPLETE) UNLISTED CT PROCEDURE (CT Detailed) CPT:79222 CPT Modifiers : 52 REDUCED SERVICES Clinical History: Responsible Attending: Dr. Orantes Attending Contact Number: [phone] Resident Contact Number: CT chest, high resolution Allergies listed in CPRS chart: TRAMADOL Creatinine: CREATININE 0.87 mg/dL 03/06/2024 09:52 /eGFR: STL EGFR (within one year). CREATININE 0.87 mg/dL (03/06/24 09:52) Wt: 233.1 lb [105.73 kg] (05/17/2024 08:37) History of: Renal failure, chronic or acute renal disease: NO Report Status: Verified Date Reported: JUN 07, 2024 Date Verified: JUN 07, 2024 Wire Turning Machine Operator E-Sig:/ES/LISHA BRYANT Report: , [id number], [id number] INDICATION: Shortness of breath COMPARISON: None TECHNIQUE: [...] suggested. Primary Interpreting Staff: LISHA BRYANT, RADIOLOGIST (Wire Turning Machine Operator) /LISHA AVITIA [facility] Jun 07, 2024 02:[address] ABD PEL W/CONT & 3D: CHET WALKER [id number] -[id number] M Exm Date: JUN 07, 2024@14:28 Req Phys: JOHANA REDDY Loc: [facility]-ONCOLOGY [facility]I (Req'g Img Loc: [facility]-CT IMAGING [facility] Service: [facility] [address] [place] [address] (Case [id number] COMPLETE) CT ABDOMEN AND PELVIS W/CONTRAST (CT Detailed) CPT:89826 Contrast Media : Non-ionic Iodinated Reason for Study: enlarged spleen (Case [id number] COMPLETE) CT 3D RENDERING W INDEPENDENT WOR(CT Detailed) CPT:86909 Clinical History: Responsible Attending: Dr. Orantes Attending Contact Number: [phone] Resident Contact Number: spleenomegally, evaluation for liver, lymphadenopathy Allergies listed in CPRS chart: TRAMADOL Creatinine:CREATININE 0.87 mg/dL 03/06/2024 09:52 /eGFR: STL EGFR (within one year). CREATININE 0.87 mg/dL (03/06/24 09:52) Wt: 233.1 lb [105.73 kg] (05/17/2024 08:37) History of: Renal failure, chronic or acute renal disease: NO Report Status: Verified Date Reported: JUN 07, 2024 Date Verified: JUN 07, 2024 Wire Turning Machine Operator E-Sig:/ES/LISHA BRYANT Report: , [id number], [id number] INDICATION: Shortness of breath COMPARISON: None TECHNIQUE: [...] suggested. Primary Interpreting Staff: LISHA BRYANT, RADIOLOGIST (Wire Turning Machine Operator) /LISHA [facility]
--- OUTSIDE RECORDS SUMMARY | 2024-11-17 03:43 | XMS_ITS | Encounter Summary ---
Author Name [facility] Organization [facility] Address [address] [place] [address] Care Team Providers Care Kitchen Food Server Name Role Phone MANUEL BAIRD Primary Care [...] PART A Apr 08, 2017 PART A [id number] ASHLEY FINK PATIENT Selected Encounter This section includes the information on record at [place] for the Encounter. Date/Time Encounter Type Encounter Description Reason Pro vider Source Jul 04, 2024 09:35 AM Outpatient Encounter ADMIN PAT ACTIVTIES (MASNONCT) IHE Encounter Template Text not used by [place] Plan of Treatment: Future Appointments (+ 6 [...] 20 appointments. The data comes from all [facility]. Appointment Date/Time Appointment Type Appointme nt Facility Name Jul 14, 2024 12:54 PM AMBULATORY [facility] SUR[facility]ERY [facility] Jul 20, 2024 10:00 AM AMBULATORY - MEDICINE [facility] Aug 02, 2024 09:45 AM AMBULATORY - MEDICINE [facility] Aug 24, 2024 10:00 AM AMBULATORY - MEDICINE [facility] Aug 24, 2024 10:30 AM AMBULATORY - MEDICINE [facility] Aug 30, 2024 09:30 AM AMBULATORY - MEDICINE [facility] Aug 31, 2024 01:00 PM AMBULATORY - SURGERY [facility] Sep 21, 2024 01:30 PM AMBULATORY - MEDICINE [facility] Sep 22, 2024 11:00 AM AMBULATORY - MEDICINE [facility] Sep 29, 2024 12:30 PM AMBULATORY - MEDICINE [facility] Oct 02, 2024 09:30 AM AMBULATORY - MEDICINE [facility] Nov 20, 2024 10:30 AM AMBULATORY - SURGERY [facility] Nov 21, 2024 10:00 AM AMBULATORY - NONE [facility] Dec 11, 2024 10:30 AM AMBULATORY - MEDICINE [facility] Active, Pending, and Scheduled Orders This section includes a listing of several types of active, pending, and scheduled orders, including clinic medications orders, diagnostic test orders, procedure orders and consult orders; where the start date of the order is 45 days before the date of the Encounter or 45 days after the date of theEncounter. The data comes from all [facility]. Test Date/Time Test Type Test Details Facility Name Aug 02, 2024 12:00 AM Laboratory - Chemistry Order COMPREHENSIVE METABOLIC PANEL GREEN LI/HEP BLD/PLAS PLASMA SP [facility] Aug 02, 2024 12:00 AM Laboratory - Chemistry Order CBC BLOOD STAT SP [facility] Aug 17, 2024 03:47 PM Consult Order [facility] Cons Bedside [facility] Lab Results: +/- 30 days of the encounter This section includes the Chemistry and Hematology Lab Results on record with [place] for the patient. Radiology Reports and Pathology Reports are provided separately, in subsequent sections. Lab Results This section contains the Chemistry/Hematology Results that were resulted 30 days before or 30 daysafter the date of the Encounter. Date/Time Source Result Type Result - Unit Interpretation Reference Range Comment Jul 20, 2024 11:[address] [facility] APTT Specimen Type: PLASMA No comment entered. Ordering Provider: MANUEL BAIRD Report Released Date/Time: Jul 19, 2024 04:00 PM Reporting Lab: [address] [address] Performing Lab: [address] [address] APTT 32.1 s 26.7-39.9 Jul 20, 2024 11:[address] [facility] PT/INR NEW ([facility]) Specimen Type: PLASMA No comment entered. Ordering Provider: MANUEL BAIRD Report Released Date/Time: Jul 19, 2024 04:00 PM Reporting Lab: [address] [address] Performing Lab: [address] [address] PROTIME 14.4 s H 9.4-12.5 INR VALUE 1.3 {INR} Jul 20, 2024 11:[address] [facility] CBC Specimen Type: BLOOD No comment entered. Ordering Provider: MANUEL BAIRD Report Released Date/Time: Jul 19, 2024 04:00 PM Reporting Lab: [address] [address] Performing Lab: [address] [address] WBC 4.7 10*3/uL 3.6-11.2 RBC 4.86 10*6/uL [...] 1.6 1.0-7.0 Jul 17, 2024 08:02 AM [facility] BASIC METABOLIC PANEL Specimen Type: PLASMA Comment: No hemolysis noted. Ordering Provider: WELLINGTON SERNA Report Released Date/Time: Jun 07, 2024 01:43 PM Reporting Lab: [address] [address] Performing Lab: [address] [address] CREATININE 0.85 mg/dL 0.7-1.3 UREA NITROGEN 15.2 mg/dL 9.0-25.0 GLUCOSE 120 mg/dL H 72-99 SODIUM 141 meq/L 136-145 POTASSIUM 4.4 meq/L 3.5-5 CHLORIDE 107 meq/L 98-107 CARBON DIOXIDE 26 meq/L 22-31 CALCIUM 9.2 mg/dL 8.4-10.4 EGFR (CKD-EPI 2020) 92.3 >60 Jun 19, 2024 07:30 AM [facility] PT/INR NEW ([facility]) Specimen Type: PLASMA No comment entered. Ordering Provider: ROSE PITTS Report Released Date/Time: Jun 12, 2024 10:14 AM Reporting Lab: [address] [address] Performing Lab: [facility] [address] [facility] [address] PROTIME 13.3 s H 9.4-12.5 INR VALUE 1.2 {INR} Jun 19, 2024 07:30 AM [facility] BASIC METABOLIC PANEL Specimen Type: PLASMA Comment: K result may show a positive bias due to hemolysis. Specimen slightly hemolyzed. Ordering Provider: ROSE PITTS AEL Report Released Date/Time: Jun 12, 2024 10:14 AM Reporting Lab: [address] [address] Performing Lab: [address] [address] CREATININE 0.85 mg/dL 0.7-1.3 UREA NITROGEN 11.9 mg/dL 9.0-25.0 GLUCOSE 106 mg/dL H 72-99 SODIUM 141 meq/L 136-145 POTASSIUM 4.4 meq/L 3.5-5 CHLORIDE 110 meq/L H 98-107 CARBON DIOXIDE 22 meq/L 22-31 CALCIUM 9.9 mg/dL 8.4-10.4 EGFR (CKD-EPI 2020) 92.3 >60 Jun 19, 2024 07:30 AM [facility] CBC Specimen Type: BLOOD No comment entered. Ordering Provider: ROSE PITTS AEL Report Released Date/Time: Jun 12, 2024 10:14 AM Reporting Lab: [address] [address] Performing Lab: [address] [address] WBC 5.1 10*3/uL 3.6-11.2 RBC 5.31 10*6/uL [...] 2.3 1.0-7.0 Jun 19, 2024 07:29 AM [facility] GLUCOSE,BLOOD-poct (STL) Specimen Type: BLOOD Comment: Test Performed by: [id number] Meter #: [id number] Ordering Provider: CARROLL HAGEN Report Released Date/Time: Jun 19, 2024 06:58 PM Reporting Lab: [address] [address] Performing Lab: [address] [address] GLUCOSE,BLOOD -poct (STL) 108 mg/dL H 72-99 Jun 09, 2024 11:48 AM [facility] MICRAL/CREAT PROFILE (STL) Specimen Type: URINE No comment entered. Ordering Provider: WELLINGTON SERNA Report Released Date/Time: Jun 07, 2024 01:44 PM Reporting Lab: [place] [address] [facility] [address] Performing Lab: [address] [address] URINE ALBUMIN (PB-STL) 167.5 mg/L uACR (STL) 103 mg/g H 0-29 CREATININE URINE/OTHERS 163.4 mg/dL 63-166 Jun 07, 2024 02:22 PM [facility] BRAIN NATRIURETIC PEPTIDE Specimen Type: PLASMA No comment entered. Ordering Provider: WELLINGTON SERNA Report Released Date/Time: Jun 07, 2024 01:32 PM Reporting Lab: [address] [address] Performing Lab: [address] [address] BRAIN NATRIURETIC PEPTIDE 198.9 pg/mL H 0-100 Jun 07, 2024 02:22 PM [facility] hsCRP Specimen Type: SERUM No comment entered. Ordering Provider: WELLINGTON SERNA Report Released Date/Time: Jun 07, 2024 01:42 PM Reporting Lab: [address] [address] Performing Lab: [address] [address] hsCRP 4.65 mg/L H 0-3.1 Jun 07, 2024 02:22 PM [facility] MAGNESIUM Specimen Type: PLASMA No comment entered. Ordering Provider: WELLINGTON SERNA Report Released Date/Time: Jun 07, 2024 01:44 PM Reporting Lab: [address] [address] Performing Lab: [address] [address] MAGNESIUM 1.7 mg/dL 1.6-2.6 Jun 05, 2024 09:00 AM [facility] FSH (STL-MA) Specimen Type: SERUM Comment: Test Performed by [facility], [facility], [address] [place] [address] Tommie Garcia M.D., Ph.D., Director of Laboratories , [place] [id number] Ordering Provider: EMILIA CALHOUN Report Released Date/Time: Jun 05, 2024 08:45 AM Reporting Lab: [address] [address] Performing Lab: [facility] [address] [facility] FSH (STL-MA) 5.5 m[IU]/mL 1.4-12.8 Jun 05, 2024 09:00 AM [facility] LUTEINIZING HORMONE Specimen Type: SERUM Comment: Test Performed by [facility], [facility], [address] [place], [place] Tommie Garcia M.D., Ph.D., Director of Laboratories , [facility] [id number] Ordering Provider: EMILIA CALHOUN Report Released Date/Time: Jun 05, 2024 08:45 AM Reporting Lab: [address] [address] Performing Lab: [facility] [address] [facility] LUTEINIZING HORMONE 2.7 m[IU]/mL 1.6-15.2 Jun 05, 2024 09:00 AM [facility] PROLACTIN (STL-Eff 08/15) Specimen Type: PLASMA No comment entered. Ordering Provider: EMILIA CALHOUN Report Released Date/Time: Jun 05, 2024 08:45 AM Reporting Lab: [facility] [address] [place] [phone] Performing Lab: [address] [address] PROLACTIN (STL-Eff 08/15) 41.98 ng/mL H 3.5-19.4 Jun 05, 2024 09:00 AM [facility] TSH (MA-PB) Specimen Type: SERUM No comment entered. Ordering Provider: EMILIA CALHOUN Report Released Date/Time: Jun 05, 2024 08:45 AM Reporting Lab: [facility] [address] [place] [phone] Performing Lab: [address] [address] TSH 3.510 u[IU]/mL 0.47-5 Jun 05, 2024 09:00 AM [facility] FREE T4 (MA-PB) Specimen Type: SERUM No comment entered. Ordering Provider: EMILIA CALHOUN Report Released Date/Time: Jun 05, 2024 08:45 AM Reporting Lab: [facility] [address] [facility] [address] Performing Lab: [facility] [address] [facility] [address] FREE T4 (MA-PB) 0.78 ng/mL 0.7-1.48 Social History: Smoking Status (Most current) and Tobacco Use (All prior to encounter date) This section includes the most current, and the historical, smoking and tobacco- related health factors from the [place] facility where the Encounter took place. Current Smoking Status This section includes the most current smoking, or tobacco-related health factor, from the [place] facility where the Encounter took place. Date/Time Current Smoking Status Comment Radhika ity Aug 11, 2016 10:34 AM QUIT TOBACCO >7 YEARS AGO [facility] Tobacco Use History This section includes a history of the smoking, or tobacco-related health factors, that were collected on or before the date of the Encounter. The data comes from the [place] facility where the Encounter took place. Date/Time Smoking Status/Tobacco Use Comment F acility Sep 30, 2015 10:12 AM QUIT TOBACCO >7 YEARS AGO [facility] Oct 29, 2014 10:23 AM QUIT TOBACCO >7 YEARS AGO [facility] Dec 27, 2013 01:27 PM QUIT TOBACCO >7 YEARS AGO [facility] Feb 24, 2013 02:01 PM LIFETIME NON-USER OF TOBACCO [facility] Feb 11, 2009 10:09 AM QUIT TOBACCO >7 YEARS AGO [facility] Oct 06, 2006 09:30 AM CURRENT NON-TOBACC O USER-HX OF USE [facility] Oct 06, 2006 09:30 AM TOBACCO TERMINATION STAGE [facility] Advance Directives: All historical and current Section Date Range: From patient's date of to the date document was created. This section includes ALL of a patient's completed or amended [place] Advance and Rescinded Directives. The entries below indicate that a directive exists for the patient, but an actual copy is not included with this document. The data comes from all [place] facilities. Date Advance Directives Provider Source Jan 19, 2017 ADVANCE DIRECTIVE DISCUSSION ERICK BARDALES [facility] Radiology Reports: +/- 30 days of [...] the Encounter. The data comes from all [place] treatment facilities. Date/Time Radiology Report Provider Source Jun 07, 2024 02:[address] CHEST W/CONTRAS T & 3D: ABIEL FINK [id number] -[id number] M Exm Date: JUN 07, 2024@14:29 Req Phys: JOHANA REDDY Loc: [facility]-ONCOLOGY K[facility]I (Req'g Img Loc: [facility]-CT IMAGING Service: [facility], [facility] [address] [place] [address] (Case [id number] COMPLETE) CT THORAX, DIAGNOSTIC, W/CONTRAS(CT Detailed) CPT:59471 Contrast Media : Non-ionic Iodinated Reason for Study: Shortness of breath (Case [id number] COMPLETE) UNLISTED CT PROCEDURE (CT Detailed) CPT:04806 CPT Modifiers : 52 REDUCED SERVICES Clinical History: Responsible Attending: Dr. Orantes Attending Contact Number: [phone] Resident Contact Number: CT chest, high resolution Allergies listed in CPRS chart: TRAMADOL Creatinine: CREATININE 0.87 mg/dL 03/06/2024 09:52 /eGFR: STL EGFR (within one year). CREATININE 0.87 mg/dL (03/06/24 09:52) Wt: 233.1 lb [105.73 kg] (05/17/2024 08:37) History of: Renal failure, chronic or acute renal disease: NO Report Status: Verified Date Reported: JUN 07, 2024 Date Verified: JUN 07, 2024 Lead Oxide Mill Tender E-Sig:/ES/LISHA BRYANT Report: , [id number], [id number] INDICATION: Shortness of breath COMPARISON: None TECHNIQUE: [...] suggested. Primary Interpreting Staff: LISHA BRYANT, RADIOLOGIST (Lead Oxide Mill Tender) /LISHA AVITIA [facility] Jun 07, 2024 02:[address] ABD PEL W/CONT & 3D: ABIEL FINK [id number] -1950 M Ex Date: JUN 07, 2024@14:28 Req Phys: JOHANA REDDY Pat Loc: [facility]-ONCOLOGY KANDI (Req'g Img Loc: [facility]-CT IMAGING [facility] Service: Unknown [facility], [facility] [address] [place] [address] (Case [id number] COMPLETE) CT ABDOMEN AND PELVIS W/CONTRAST (CT Detailed) CPT:70002 Contrast Media : Non-ionic Iodinated Reason for Study: enlarged spleen (Case [id number] COMPLETE) CT 3D RENDERING W INDEPENDENT WOR(CT Detailed) CPT:11843 Clinical History: Responsible Attending: Dr. Orantes Attending Contact Number: [phone] Resident Contact Number: spleenomegally, evaluation for liver, lymphadenopathy Allergies listed in CPRS chart: TRAMADOL Creatinine:CREATININE 0.87 mg/dL 03/06/2024 09:52 /eGFR: STL EGFR (within one year). CREATININE 0.87 mg/dL (03/06/24 09:52) Wt: 233.1 lb [105.73 kg] (05/17/2024 08:37) History of: Renal failure, chronic or acute renal disease: NO Report Status: Verified Date Reported: JUN 07, 2024 Date Verified: JUN 07, 2024 Lead Oxide Mill Tender E-Sig:/ES/LISHA BRYANT Report: , [id number], [id number] INDICATION: Shortness of breath COMPARISON: None TECHNIQUE: [...] suggested. Primary Interpreting Staff: LISHA BRYANT, RADIOLOGIST (Lead Oxide Mill Tender) /LISHA AVITIA [facility] Encounter Notes: All associated encounter notes This section contains the clinical notes associated to the Encounter. Date/Time Encounter Note(s) Provider Source Jul 04, 2024 09:36 AM ADMINISTRATIVE NOT E: LOCAL TITLE: SCHEDULING NOTE STL STANDARD TITLE: ADMINISTRATIVE NOTE DATE OF NOTE: JUL 04, 2024@09:36 ENTRY DATE: JUL 04, 2024@09:36:16 AUTHOR: EMILIE SOUSA EXP COSIGNER: URGENCY: STATUS: COMPLETED Minimum Scheduling attempts to contact the have been made. RTC/Appt/Consult request will be discontinued after 14 days. Clinic: [facility] PACT STAR RES 4 TAMARA: Jun First Call to [place] - unsuccessful scheduling: Jun Unable to contact , letter sent: Jun Discontinue date (14 calendar days after letter is mailed): Jul Additional comments: ATTEMPT TO R/S NO SHOW APPT. SPOKE TO . HE WILL LIKE TO CALL BACK LATER TO R/S. LETTER SENT REMINDER. ADDITIONAL RESULTS FROM SCHEDULING ATTEMPTS: Spoke with /Caregiver [place] wants to call back to schedule /shen/ EMILIE SOUSA [employer]ED PHOTOGRAPH MOUNTER Signed: 07/04/2024 09:37 EMILIE SOUSA [facility] Jul 04, 2024 09:35 AM PHYSICIAN LETTERS: LOCAL TITLE: NO CONTACT LETTER STL STANDARD TITLE: PHYSICIAN LETTERS DATE OF NOTE: JUL 04, 2024@09:35 ENTRY DATE: JUL 04, 2024@09:35:47 AUTHOR: EMILIE SOUSA EXP COSIGNER: URGENCY: STATUS: COMPLETED [facility] [address] [place] [address] JUL 04, 2024 ABIEL FINK [address] [place], [place] [address] Dear Abiel Fink, Thank you for choosing the [facility] as your primary choice for health care. As a partner in your health care, we are attempting to contact you because we have been unsuccessful in reaching you by phone to schedule your clinic appointment. Please call us at [phone], extension [phone] to speak to us regarding making an appointment in the [facility] clinic. Your good health is important to us. Please contact us within 2 weeks from the date of this letter. If we do not hear from you, we will notify your referring provider and a new referral will be required to schedule an appointment. IMPORTANT: Due to COVID-19 we have greatly expanded our telehealth options, please contact the clinic to inquire about scheduling. Sincerely, EMILIE SOUSA ADVANCED PHOTOGRAPH MOUNTER ABIEL FINK CRYSTAL M [facility]
--- OUTSIDE RECORDS SUMMARY | 2024-11-17 03:43 | XMS_ITS | Encounter Summary ---
Author Name [facility] [place] [facility] [place] [facility] [place] Address [address] [place] [address] Care Team Providers Care Threader Name Role Phone MANUEL BAIRD Primary Care [...] PART A Apr 08, 2017 PART A [id number] [phone] ASHLEY WALKER PATIENT Selected Encounter This section includes the information on record at [place] for the Encounter. Date/Time Encounter Type Encounter Description Reason Provider Source Jun 29, 2024 01:00 PM OFF/OP CONSLTJ NEW/EST HI 55 CARDIAC SURGERY ICD-10-CM I25.118 [place] heart disease of [place] art w oth ang pctrs VICKI MEJIAS Encounter Template Text not used by [facility] Assessments - Encounter Diagnoses This section includes the primary and secondary diagnoses documented for the Encounter. Date/Time Primary/Secondary Diagnosis Diagnosis Name Provider Source Jun 29, 2024 04:04 PM PRIMARY [place]scl heart disease of [place] cor art w oth ang pctrs VICKI MEJIAS [facility] Jun 29, 2024 04:04 PM SECONDARY Contact with and exposure to other hazardous substances VICKI MEJIAS [facility] Jun 29, 2024 04:04 PM SECONDARY Essential (primary) hypertension VICKI MEJIAS [facility] Jun 29, 2024 04:04 PM SECONDARY Fatty (change of) liver, not elsewhere classified VICKI MEJIAS [facility] Jun 29, 2024 04:04 PM SECONDARY Gastro-esophageal reflux disease without esophagitis VICKI MEJIAS [facility] Jun 29, 2024 04:04 PM SECONDARY Heart failure, unspecified VICKI MEJIAS [facility] Jun 29, 2024 04:04 PM SECONDARY Hyperlipidemia, unspecified MEJIASVICKI [facility] Jun 29, 2024 04:04 PM SECONDARY Low back pain, unspecified MEJIASVICKI [facility] Jun 29, 2024 04:04 PM SECONDARY Mild persistent asthma, uncomplicated MEJIASVICKI [facility] Jun 29, 2024 04:04 PM SECONDARY Obesity, unspecified VICKI MEJIAS [facility] Jun 29, 2024 04:04 PM SECONDARY Patellofemoral disorders, right knee MEJIASVICKI [facility] Jun 29, 2024 04:04 PM SECONDARY Presence of left artificial knee joint VICKI MEJIAS [facility] Jun 29, 2024 04:04 PM SECONDARY Presence of right artificial knee joint VICKI MEJIAS [facility] Jun 29, 2024 04:04 PM SECONDARY Thrombocytopenia, unspecified VICKI MEJIAS [facility] Jun 29, 2024 04:04 PM SECONDARY Type 2 diabetes w diabetic autonomic (poly)neuropathy MEJIASVICKI [facility] Jun 29, 2024 04:04 PM SECONDARY Unilateral post-traumatic osteoarthritis, left knee VICKI MEJIAS [facility] Plan of Treatment: Future Appointments (+ 6 months) and Future Tests (+/- 45 days) The Plan of Treatment section includes future care activities for the patient [facility] [place] [facility] This section includes future appointments and future orders which are active, pending or scheduled. Future Appointments This section includes appointments that were scheduled to occur 6 months from the date of the Encounter, up to a maximum of 20 appointments. The data comes from all [facility]. Appointment Date/Time Appointment Type Appointme nt Facility Name Jul 03, 2024 10:30 AM AMBULATORY - MEDICINE [facility] Jul 14, 2024 12:54 PM AMBULATORY - SURGERY [facility] Jul 20, 2024 10:00 AM AMBULATORY - MEDICINE [facility] Aug 02, 2024 09:45 AM AMBULATORY - MEDICINE [facility] Aug 24, 2024 10:00 AM AMBULATORY - MEDICINE [facility] Aug 24, 2024 10:30 AM AMBULATORY - MEDICINE [facility] Aug 30, 2024 09:30 AM AMBULATORY - MEDICINE [facility] Aug 31, 2024 01:00 PM AMBULATORY - SURGERY [facility] Sep 21, 2024 01:30 PM AMBULATORY MEDICINE [facility] Sep 22, 2024 11:00 AM AMBULATORY - MEDICINE [facility] Sep 29, 2024 12:30 PM AMBULATORY - MEDICINE [facility] Oct 02, 2024 09:30 AM AMBULATORY - MEDICINE [facility] Nov 20, 2024 10:30 AM AMBULATORY - SURGERY [facility] Nov 21, 2024 10:00 AM AMBULATORY - NONE [facility] Dec 11, 2024 10:30 AM AMBULATORY - MEDICINE [facility] Active, Pending, and Scheduled Orders This section includes a listing of several types of active, pending, and scheduled orders, including clinic medications orders, diagnostic test orders, procedure orders and consult orders; where thestart date of the order is 45 days before the date of the Encounter or 45 days after the date of the Encounter. The data comes from all [place] treatment facilities. Test Date/Time Test Type Test Details Facility Name Aug 02, 2024 12:00 AM Laboratory - Chemistry Order CBC BLOOD STAT SP [facility] Aug 02, 2024 12:00 AM Laboratory - Chemistry Order COMPREHENSIVE METABOLIC PANEL GREEN LI/HEP BLD/PLAS PLASMA SP [facility] Lab Results: +/- 30 days of the encounter This section includes the Chemistry and Hematology Lab Results on record with [place] for the patient. Radiology Reports and Pathology Reports are provided separately, in subsequent sections. Lab Results This section contains the Chemistry/Hematology Results that were resulted 30 days before or 30 daysafter the date of the Encounter. Date/Time Source Result Type Result - Unit Interpretation Reference Range Comment Jul 20, 2024 11:18 AM [facility] APTT Specimen Type: PLASMA No comment entered. Ordering Provider: MANUEL BAIRD Report Released Date/Time: Jul 19, 2024 04:00 PM Reporting Lab: [facility] [address] [facility] [address] Performing Lab: [facility] [address] [facility] [address] APTT 32.1 s 26.7-39.9 Jul 20, 2024 11:18 AM [facility] PT/INR NEW ([facility]) Specimen Type: PLASMA No comment entered. Ordering Provider: MANUEL BAIRD Report Released Date/Time: Jul 19, 2024 04:00 PM Reporting Lab: [facility] [address] [facility] [address] Performing Lab: [facility] [address] [facility] [address] PROTIME 14.4 s H 9.4-12.5 INR VALUE 1.3 {INR} Jul 20, 2024 11:18 AM [facility] CBC Specimen Type: BLOOD No comment entered. Ordering Provider: MANUEL BAIRD Report Released Date/Time: Jul 19, 2024 04:00 PM Reporting Lab: [facility] [address] [facility] [address] Performing Lab: [facility] [address] [address] WBC 4.7 10*3/uL 3.6-11.2 RBC 4.86 10*6/uL [...] 1.6 1.0-7.0 Jul 17, 2024 08:[address] [facility] BASIC METABOLIC PANEL Specimen Type: PLASMA Comment: No hemolysis noted. Ordering Provider: WELLINGTON SERNA Report Released Date/Time: Jun 07, 2024 01:43 PM Reporting Lab: [address] [address] Performing Lab: [address] [address] CREATININE 0.85 mg/dL 0.7-1.3 UREA NITROGEN 15.2 mg/dL 9.0-25.0 GLUCOSE 120 mg/dL H 72-99 SODIUM 141 meq/L 136-145 POTASSIUM 4.4 meq/L 3.5-5 CHLORIDE 107 meq/L 98-107 CARBON DIOXIDE 26 meq/L 22-31 CALCIUM 9.2 mg/dL 8.4-10.4 EGFR (CKD-EPI 2020) 92.3 >60 Jun 19, 2024 07:[address] [facility] PT/INR NEW ([facility]) Specimen Type: PLASMA No comment entered. Ordering Provider: ROSE PITTS Report Released Date/Time: Jun 12, 2024 10:14 AM Reporting Lab: [address] [address] Performing Lab: [address] [address] PROTIME 13.3 s H 9.4-12.5 INR VALUE 1.2 {INR} Jun 19, 2024 07:[address] [facility] BASIC METABOLIC PANEL Specimen Type: PLASMA Comment: K result may show a positive bias due to hemolysis. Specimen slightly hemolyzed. Ordering Provider: ROSE PITTS Report Released Date/Time: Jun 12, 2024 10:14 AM Reporting Lab: [address] [address] Performing Lab: [address] [address] CREATININE 0.85 mg/dL 0.7-1.3 UREA NITROGEN 11.9 mg/dL 9.0-25.0 GLUCOSE 106 mg/dL H 72-99 SODIUM 141 meq/L 136-145 POTASSIUM 4.4 meq/L 3.5-5 CHLORIDE 110 meq/L H 98-107 CARBON DIOXIDE 22 meq/L 22-31 CALCIUM 9.9 mg/dL 8.4-10.4 EGFR (CKD-EPI 2020) 92.3 >60 Jun 19, 2024 07:[address] [facility] CBC Specimen Type: BLOOD No comment entered. Ordering Provider: ROSE PITTS Report Released Date/Time: Jun 12, 2024 10:14 AM Reporting Lab: [address] [address] Performing Lab: [address] [address] WBC 5.1 10*3/uL 3.6-11.2 RBC 5.31 10*6/uL [...] 2.3 1.0-7.0 Jun 19, 2024 07:[address] [facility] GLUCOSE,BLOOD-poct (STL) Specimen Type: BLOOD Comment: Test Performed by: [id number] Meter #: [id number] Ordering Provider: CARROLL HAGEN Report Released Date/Time: Jun 19, 2024 06:58 PM Reporting Lab: [address] [address] Performing Lab: [address] [address] GLUCOSE,BLOOD -poct (STL) 108 mg/dL H 72-99 Jun 09, 2024 11:[address] [facility] MICRAL/CREAT PROFILE (STL) Specimen Type: URINE No comment entered. Ordering Provider: WELLINGTON SERNA Report Released Date/Time: Jun 07, 2024 01:44 PM Reporting Lab: [address] [address] Performing Lab: [address] [address] URINE ALBUMIN (PB-STL) 167.5 mg/L uACR (STL) 103 mg/g H 0-29 CREATININE URINE/OTHERS 163.4 mg/dL 63-166 Jun 07, 2024 02:[address] [facility] hsCRP Specimen Type: SERUM No comment entered. Ordering Provider: WELLINGTON SERNA Report Released Date/Time: Jun 07, 2024 01:42 PM Reporting Lab: [address] [address] Performing Lab: [address] [address] hsCRP 4.65 mg/L H 0-3.1 Jun 07, 2024 02:[address] [facility] BRAIN NATRIURETIC PEPTIDE Specimen Type: PLASMA No comment entered. Ordering Provider: WELLINGTON SERNA Report Released Date/Time: Jun 07, 2024 01:32 PM Reporting Lab: [address] [address] Performing Lab: [address] [address] BRAIN NATRIURETIC PEPTIDE 198.9 pg/mL H 0-100 Jun 07, 2024 02:[address] [facility] MAGNESIUM Specimen Type: PLASMA No comment entered. Ordering Provider: WELLINGTON SERNA Report Released Date/Time: Jun 07, 2024 01:44 PM Reporting Lab: [address] [address] Performing Lab: [address] [address] MAGNESIUM 1.7 mg/dL 1.6-2.6 Jun 05, 2024 09:[address] [facility] FSH (STL-MA) Specimen Type: SERUM Comment: Test Performed by Sander Thornton, [email or web address] [facility], [address] [place] [address] Tommie Garcia M.D., Ph.D., Director of Laboratories , [place] [id number] Ordering Provider: EMILIA CALHOUN Report Released Date/Time: Jun 05, 2024 08:45 AM Reporting Lab: [facility] [address] [facility] [address] Performing Lab: [address] FSH (STL-MA) 5.5 m[IU]/mL 1.4-12.8 Jun 05, 2024 09:[address] [facility] LUTEINIZING HORMONE Specimen Type: SERUM Comment: Test Performed by [email or web address], [email or web address], [address] [place] [address] Tommie Garcia M.D., Ph.D., Director of Laboratories , [facility] [id number] Ordering Provider: EMILIA CALHOUN Report Released Date/Time: Jun 05, 2024 08:45 AM Reporting Lab: [address] [address] Performing Lab: [address] LUTEINIZING HORMONE 2.7 m[IU]/mL 1.6-15.2 Jun 05, 2024 09:[address] [facility] PROLACTIN (L-Eff 08/15) Specimen Type: PLASMA No comment entered. Ordering Provider: EMILIA CALHOUN Report Released Date/Time: Jun 05, 2024 08:45 AM Reporting Lab: [address] [address] Performing Lab: [place] [address] [facility] [address] PROLACTIN (STL-Eff 08/15) 41.98 ng/mL H 3.5-19.4 Jun 05, 2024 09:[address] [facility] TSH (MA-PB) Specimen Type: SERUM No comment entered. Ordering Provider: EMILIA CALHOUN Report Released Date/Time: Jun 05, 2024 08:45 AM Reporting Lab: [address] [address] Performing Lab: [facility] [address] [facility] [address] TSH 3.510 u[IU]/mL 0.47-5 Jun 05, 2024 09:[address] [facility] FREE T4 (MA-PB) Specimen Type: SERUM No comment entered. Ordering Provider: EMILIA CALHOUN Report Released Date/Time: Jun 05, 2024 08:45 AM Reporting Lab: [facility] [address] [facility] [address] Performing Lab: [facility] [address] [facility] [address] FREE T4 (MA-PB) 0.78 ng/mL 0.7-1.48 Vital Signs: All taken on the encounter date This section contains inpatient and outpatient Vital Signs collected on the date of the Encounter. Date/Time Temperature Pulse Blood Pressure Respiratory Rate SP02 Pain Height Weight Body Mass Index Source Jun 29, 2024 12:58 PM 97.6 54 122/55 18 97 0 70 241.3 35 [facility] Social History: Smoking Status (Most current) and Tobacco Use (All prior to encounter date) This section includes the most current, and the historical, smoking and tobacco- related health factors from the [place] facility where the Encounter took place. Current Smoking Status This section includes the most current smoking, or tobacco-related health factor, from the [place] facility where the Encounter took place. Date/Time Current Smoking Status Comment Radhika goins Aug 11, 2016 10:34 AM QUIT TOBACCO >[address] [facility] Tobacco Use History This section includes a history of the smoking, or tobacco-related health factors, that were collected on or before the date of the Encounter. The data comes from the [place] facility where the Encounter took place. Date/Time Smoking Status/Tobacco Use Comment Juan borden Sep 30, 2015 10:12 AM QUIT TOBACCO >[address] [facility] Oct 29, 2014 10:23 AM QUIT TOBACCO >[address] [facility] Dec 27, 2013 01:27 PM QUIT TOBACCO >[address] [facility] Feb 24, 2013 02:01 PM LIFETIME NON-USER OF TOBACCO [facility] Feb 11, 2009 10:09 AM QUIT TOBACCO >[address] [facility] Oct 06, 2006 09:30 AM CURRENT NON-TOBACC O USER-HX OF USE [facility] Oct 06, 2006 09:[address] [facility] Advance Directives: All historical and current Section Date Range: From patient's date of to the date document was created. This section includes ALL of a patient's completed or amended [place] Advance and Rescinded Directives. The entries below indicate that a directive exists for the patient, but an actual copy is not included with this document. The data comes from all [place] facilities. Date Advance Directives Provider Source Jan 19, 2017 ADVANCE DIRECTIVE DISCUSSION ERICK BARDALES [facility] Radiology Reports: +/- 30 days of the [...] the Encounter. The data comes from all [place] treatment facilities. Date/Time Radiology Report Provider Source Jun 07, 2024 02:[address] CHEST W/CONTRAS T & 3D: CHET WALKER [id number] -1950 M Exm Date: JUN 07, 2024@14:29 Req Phys: JOHANA REDDY Loc: [facility]-ONCOLOGY KANDI (Req'g Im Loc: [facility]-CT IMAGING [facility] Service: Unknown [facility] [address] [place] [address] (Case [id number] COMPLETE) CT THORAX, DIAGNOSTIC, W/CONTRAS(CT Detailed) CPT:90021 Contrast Media : Non-ionic Iodinated Reason for Study: Shortness of breath (Case [id number] COMPLETE) UNLISTED CT PROCEDURE (CT Detailed) CPT:84489 CPT Modifiers : 52 REDUCED SERVICES Clinical History: Responsible Attending: Dr. Orantes Attending Contact Number: [id number] Resident Contact Number: CT chest, high resolution Allergies listed in CPRS chart: TRAMADOL Creatinine: CREATININE 0.87 mg/dL 03/06/2024 09:52 /eGFR: STL EGFR (within one year). CREATININE 0.87 mg/dL (03/06/24 09:52) Wt: 233.1 lb [105.73 kg] (05/17/2024 08:37) History of: Renal failure, chronic or acute renal disease: NO Report Status: Verified Date Reported: JUN 07, 2024 Date Verified: JUN 07, 2024 Shift Stacker E-Sig:/ES/LISHA BRYANT Report: , [id number], [id number] INDICATION: Shortness of breath COMPARISON: None TECHNIQUE: [...] suggested. Primary Interpreting Staff: LISHA BRYANT, RADIOLOGIST (Shift Stacker) /LISHA [facility] Jun 07, 2024 02:[address] ABD PEL W/CONT & 3D: CHET WALKER [id number] -1950 M Exm Date: JUN 07, 2024@14:28 Req Phys: KOBY JOHANA SMITH Ruma Loc: [facility]-ONCOLOGY KANDI (Req'g Im Loc: [facility]-CT IMAGING [facility] Service: Unknown [facility], [facility] [address] [place] [address] (Case [id number] COMPLETE) CT ABDOMEN AND PELVIS W/CONTRAST (CT Detailed) CPT:66613 Contrast Media : Non-ionic Iodinated Reason for Study: enlarged spleen (Case [id number] COMPLETE) CT 3D RENDERING W INDEPENDENT WOR(CT Detailed) CPT:66318 Clinical History: Responsible Attending: Dr. Orantes Attending Contact Number: [phone] Resident Contact Number: spleenomegally, evaluation for liver, lymphadenopathy Allergies listed in CPRS chart: TRAMADOL Creatinine:CREATININE 0.87 mg/dL 03/06/2024 09:52 /eGFR: STL EGFR (within one year). CREATININE 0.87 mg/dL (03/06/24 09:52) Wt: 233.1 lb [105.73 kg] (05/17/2024 08:37) History of: Renal failure, chronic or acute renal disease: NO Report Status: Verified Date Reported: JUN 07, 2024 Date Verified: JUN 07, 2024 Shift Stacker E-Sig:/ES/LISHA BRYANT Report: , [id number], [id number] INDICATION: Shortness of breath COMPARISON: None TECHNIQUE: [...] suggested. Primary Interpreting Staff: LISHA BRYANT, RADIOLOGIST (Shift Stacker) /[facility]HA [facility] Encounter Notes: All associated encounter notes This section contains the clinical notes associated to the Encounter. Date/Time Encounter Note(s) Provider Source Jun 29, 2024 03:51 PM CARDIOTHORACIC ASHA MINOO CONSULT: LOCAL TITLE: CARDIAC SURGERY CONSULT ST STANDARD TITLE: CARDIOTHORACIC SURGERY CONSULT DATE OF NOTE: JUN 29, 2024@15:51 ENTRY DATE: JUN 29, 2024@15:51:51 AUTHOR: SUZIE MEJIAS COSIGNER: URGENCY: STATUS: COMPLETED Mr. Walker was seen in [facility] Surgery clinic today and met with Dr. Johnathan Mckee to discuss CABG. Mr. Walker is a 74yo who is very SOB on exertion worse when bending over. He had EMILE today which Dr. Mckee evaluated with Dr. Mccoy to evaluate his Mitral Valve. It was read as mile to moderate central jet and it was discussed that likely nothing needed to be done with the valve at this time. He has Hx JACQUELINE, T2DM (A1c 7.0), HTN, HLD, Asthma, GERD, fatty liver disease, NYHA II-III and obesity (BMI 34). 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 He quit smoking at age 30. 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 He uses a cane and sometimes a walker and therefore Dr. Mckee believes that he would benefit from sternal plating at time of CABG. He is considered higher risk for CABG and Dr. Mckee offered him CABG at facility for higher acuity. Mr. Walker chose [facility] and we will therefore begin the process of sending information so he will be able to have CABG at [facility]. Thank you for allowing [facility] Surgery to collaborate in the care of Mr. Walker. Suzie Mejias, RN, DNP, ACNP Cardiac Surgery /es/ SUZIE MEJIAS DNP RN NURSE PRACTITIONER/CLINICAL NURSE SPECIALIST Signed: 06/29/2024 16:04 SUZIE MEJIAS [facility]
--- OUTSIDE RECORDS SUMMARY | 2024-11-17 03:43 | XMS_ITS | Encounter Summary ---
Author Name [facility] [place] Organization [facility] [place] Address [address] [place] [address] Care Team Providers Care Md Urologist Name Role Phone MANUEL BAIRD Primary Care [...] PART A Apr 08, 2017 PART A [id number] ASHLEY WALKER PATIENT Selected Encounter This section includes the information on record at [place] for the Encounter. Date/Time Encounter Type Encounter Description Reason Provider Source Jun 26, 2024 02:21 PM HC PRO PHONE CALL 11-20 MIN TELEPHONE/MEDICIN E ICD-10-CM I50.9 Heart failure, unspecified STEPHAN BRITO Encounter Template Text not used by [place] Assessments - Encounter Diagnoses This section includes the primary and secondary diagnoses documented for the Encounter. Date/Time Primary/Secondary Diagnosis Diagnosis Name Provider Source Jun 26, 2024 02:21 PM PRIMARY Heart failure, unspecified STEPHAN BRITO [facility] Plan of Treatment: Future Appointments (+ 6 months) and Future Tests (+/- 45 days) The Plan of Treatment section includes future care activities for the patient from all [facility]. This section includes future appointments and future orders which are active, pending or scheduled. Future Appointments This section includes appointments that were scheduled to occur 6 months from the date of the Encounter, up to a maximum of 20 appointments. The data comes from all [facility]. Appointment Date/Time Appointment Type Appointme nt Facility Name Jun 29, 2024 10:15 AM AMBULATORY - MEDICINE [facility] Jun 29, 2024 01:00 PM AMBULATORY - SURGERY [facility] Jul 03, 2024 10:30 AM AMBULATORY - MEDICINE [facility] Jul 14, 2024 12:54 PM AMBULATORY - SURGERY [facility] Jul 20, 2024 10:00 AM AMBULATORY - MEDICINE [facility] Aug 02, 2024 09:45 AM AMBULATORY - MEDICINE [facility] Aug 24, 2024 10:00 AM AMBULATORY - MEDICINE [facility] Aug 24, 2024 10:30 AM AMBULATORY - MEDICINE [facility] Aug 30, 2024 09:30 AM AMBULATORY - MEDICINE [facility] Aug 31, 2024 01:00 PM AMBULATORY - SURGERY [facility] Sep 21, 2024 01:30 PM AMBULATORY - MEDICINE [facility] Sep 22, 2024 11:00 AM AMBULATORY - MEDICINE [facility] Sep 29, 2024 12:30 PM AMBULATORY - MEDICINE [facility] Oct 02, 2024 09:30 AM AMBULATORY - MEDICINE [facility] Nov 20, 2024 10:30 AM AMBULATORY - SURGERY [facility] Nov 21, 2024 10:00 AM AMBULATORY - NONE [facility] Dec 11, 2024 10:30 AM AMBULATORY - MEDICINE [facility] Active, Pending, and Scheduled Orders This section includes a listing of several types of active, pending, and scheduled orders, including clinic medications orders, diagnostic test orders, procedure orders and consult orders; where the start date of the order is 45 days before the date of the Encounter or 45 days after the date of theEncounter. The data comes from all [place] treatment facilities. Test Date/Time Test Type Test Details Facility Name Aug 02, 2024 12:00 AM Laboratory - Chemistry Order COMPREHENSIVE METABOLIC PANEL GREEN LI/HEP BLD/PLAS PLASMA SP [facility] Aug 02, 2024 12:00 AM Laboratory - Chemistry Order CBC BLOOD STAT SP [facility] Lab Results: +/- 30 days of the encounter This section includes the Chemistry and Hematology Lab Results on record with [place] for the patient. Radiology Reports and Pathology Reports are provided separately, in subsequent sections. Lab Results This section contains the Chemistry/Hematology Results that were resulted 30 days before or 30 daysafter the date of the Encounter. Date/Time Source Result Type Result - Unit Interpretation Reference Range Comment Jul 20, 2024 11:18 AM [facility] APTT Specimen Type: PLASMA No comment entered. Ordering Provider: MANUEL BAIRD Report Released Date/Time: Jul 19, 2024 04:00 PM Reporting Lab: [facility] [address] [address] Performing Lab: [facility] [address] [place] [id number] APTT 32.1 s 26.7-39.9 Jul 20, 2024 11:18 AM [facility] PT/INR NEW ([facility]) Specimen Type: PLASMA No comment entered. Ordering Provider: MANUEL BAIRD Report Released Date/Time: Jul 19, 2024 04:00 PM Reporting Lab: [facility] [address] [address] Performing Lab: [address] [address] PROTIME 14.4 s H 9.4-12.5 INR VALUE 1.3 {INR} Jul 20, 2024 11:18 AM [facility] CBC Specimen Type: BLOOD No comment entered. Ordering Provider: MANUEL BAIRD Report Released Date/Time: Jul 19, 2024 04:00 PM Reporting Lab: [facility] [address] [address] Performing Lab: [address] [address] WBC 4.7 10*3/uL 3.6-11.2 RBC 4.86 10*6/uL [...] 1.6 1.0-7.0 Jul 17, 2024 08:02 AM [facility] BASIC METABOLIC PANEL Specimen Type: PLASMA Comment: No hemolysis noted. Ordering Provider: WELLINGTON SERNA Report Released Date/Time: Jun 07, 2024 01:43 PM Reporting Lab: [address] [address] Performing Lab: [address] [address] CREATININE 0.85 mg/dL 0.7-1.3 UREA NITROGEN 15.2 mg/dL 9.0-25.0 GLUCOSE 120 mg/dL H 72-99 SODIUM 141 meq/L 136-145 POTASSIUM 4.4 meq/L 3.5-5 CHLORIDE 107 meq/L 98-107 CARBON DIOXIDE 26 meq/L 22-31 CALCIUM 9.2 mg/dL 8.4-10.4 EGFR (CKD-EPI 2020) 92.3 >60 Jun 19, 2024 07:30 AM [facility] PT/INR NEW ([facility]) Specimen Type: PLASMA No comment entered. Ordering Provider: ROSE PITTS Report Released Date/Time: Jun 12, 2024 10:14 AM Reporting Lab: [address] [address] Performing Lab: [address] [address] PROTIME 13.3 s H 9.4-12.5 INR VALUE 1.2 {INR} Jun 19, 2024 07:30 AM [facility] BASIC METABOLIC PANEL Specimen Type: PLASMA Comment: K result may show a positive bias due to hemolysis. Specimen slightly hemolyzed. Ordering Provider: ROSE PITTS Report Released Date/Time: Jun 12, 2024 10:14 AM Reporting Lab: [address] [address] Performing Lab: [address] [address] CREATININE 0.85 mg/dL 0.7-1.3 UREA NITROGEN 11.9 mg/dL 9.0-25.0 GLUCOSE 106 mg/dL H 72-99 SODIUM 141 meq/L 136-145 POTASSIUM 4.4 meq/L 3.5-5 CHLORIDE 110 meq/L H 98-107 CARBON DIOXIDE 22 meq/L 22-31 CALCIUM 9.9 mg/dL 8.4-10.4 EGFR (CKD-EPI 2020) 92.3 >60 Jun 19, 2024 07:30 AM [facility] CBC Specimen Type: BLOOD No comment entered. Ordering Provider: ROSE PITTS Report Released Date/Time: Jun 12, 2024 10:14 AM Reporting Lab: [address] [address] Performing Lab: [address] [address] WBC 5.1 10*3/uL 3.6-11.2 RBC 5.31 10*6/uL [...] 2.3 1.0-7.0 Jun 19, 2024 07:29 AM [facility] GLUCOSE,BLOOD-poct (STL) Specimen Type: BLOOD Comment: Test Performed by: [id number] Meter #: [id number] Ordering Provider: CARROLL HAGEN Report Released Date/Time: Jun 19, 2024 06:58 PM Reporting Lab: [address] [address] Performing Lab: [facility] [address] [place] [phone] GLUCOSE,BLOOD -poct (STL) 108 mg/dL H 72-99 Jun 09, 2024 11:48 AM [facility] MICRAL/CREAT PROFILE (STL) Specimen Type: URINE No comment entered. Ordering Provider: WELLINGTON SERNA Report Released Date/Time: Jun 07, 2024 01:44 PM Reporting Lab: [address] [address] Performing Lab: [place] [address] [facility] [address] URINE ALBUMIN (PB-STL) 167.5 mg/L uACR (STL) 103 mg/g H 0-29 CREATININE URINE/OTHERS 163.4 mg/dL 63-166 Jun 07, 2024 02:22 PM [facility] BRAIN NATRIURETIC PEPTIDE Specimen Type: PLASMA No comment entered. Ordering Provider: WELLINGTON SERNA Report Released Date/Time: Jun 07, 2024 01:32 PM Reporting Lab: [address] [address] Performing Lab: [address] [address] BRAIN NATRIURETIC PEPTIDE 198.9 pg/mL H 0-100 Jun 07, 2024 02:22 PM [facility] hsCRP Specimen Type: SERUM No comment entered. Ordering Provider: WELLINGTON SERNA Report Released Date/Time: Jun 07, 2024 01:42 PM Reporting Lab: [place] [address] [facility] [address] Performing Lab: [place] [address] [facility] [address] hsCRP 4.65 mg/L H 0-3.1 Jun 07, 2024 02:22 PM [facility] MAGNESIUM Specimen Type: PLASMA No comment entered. Ordering Provider: WELLINGTON SERNA Report Released Date/Time: Jun 07, 2024 01:44 PM Reporting Lab: [place] [address] [facility] [address] Performing Lab: [address] [address] MAGNESIUM 1.7 mg/dL 1.6-2.6 Jun 05, 2024 09:00 AM [facility] FSH (STL-MA) Specimen Type: SERUM Comment: Test Performed by Sander Thornton, M:[employer] [facility], [address] [place] [address] Tommie Garcia M.D., Ph.D., Director of Laboratories , CLIA [id number] Ordering Provider: EMILIA CALHOUN Report Released Date/Time: Jun 05, 2024 08:45 AM Reporting Lab: [facility] [address] [facility] [address] Performing Lab: [address] FSH (STL-MA) 5.5 m[IU]/mL 1.4-12.8 Jun 05, 2024 09:00 AM [facility] LUTEINIZING HORMONE Specimen Type: SERUM Comment: Test Performed by M:[facility] [employer] [facility], [address] [place] [address] Tommie Garcia M.D., Ph.D., Director of Laboratories , CLIA [id number] Ordering Provider: EMILIA CALHOUN Report Released Date/Time: Jun 05, 2024 08:45 AM Reporting Lab: [facility] [address] [facility] [address] Performing Lab: [address] LUTEINIZING HORMONE 2.7 m[IU]/mL 1.6-15.2 Jun 05, 2024 09:00 AM [facility] PROLACTIN (STL-Eff 08/15) Specimen Type: PLASMA No comment entered. Ordering Provider: EMILIA CALHOUN Report Released Date/Time: Jun 05, 2024 08:45 AM Reporting Lab: [facility] [address] [facility] [address] Performing Lab: [place] [address] [facility] [address] PROLACTIN (STL-Eff 08/15) 41.98 ng/mL H 3.5-19.4 Jun 05, 2024 09:00 AM [facility] TSH (MA-PB) Specimen Type: SERUM No comment entered. Ordering Provider: EMILIA CALHOUN Report Released Date/Time: Jun 05, 2024 08:45 AM Reporting Lab: [facility] [address] [facility] [address] Performing Lab: [facility] [address] [facility] [address] TSH 3.510 u[IU]/mL 0.47-5 Jun 05, 2024 09:00 AM [facility] FREE T4 (MA-PB) Specimen Type: SERUM No comment entered. Ordering Provider: EMILIA CALHOUN Report Released Date/Time: Jun 05, 2024 08:45 AM Reporting Lab: [facility] [address] [facility] [address] Performing Lab: [facility] [address] [facility] [address] FREE T4 (MA-PB) 0.78 ng/mL 0.7-1.48 Social History: Smoking Status (Most current) and Tobacco Use (All prior to encounter date) This section includes the most current, and the historical, smoking and tobacco- related health factors from the [place] facility where the Encounter took place. Current Smoking Status This section includes the most current smoking, or tobacco-related health factor, from the [place] facility where the Encounter took place. Date/Time Current Smoking Status Comment Radhika goins Aug 11, 2016 10:34 AM QUIT TOBACCO >7 YEARS AGO [facility] Tobacco Use History This section includes a history of the smoking, or tobacco-related health factors, that were collected on or before the date of the Encounter. The data comes from the [place] facility where the Encounter took place. Date/Time Smoking Status/Tobacco Use Comment Juan acility Sep 30, 2015 10:12 AM QUIT TOBACCO >7 YEARS AGO [facility] Oct 29, 2014 10:23 AM QUIT TOBACCO >7 YEARS AGO [facility] Dec 27, 2013 01:27 PM QUIT TOBACCO >7 YEARS AGO [facility] Feb 24, 2013 02:01 PM LIFETIME NON-USER OF TOBACCO [facility] Feb 11, 2009 10:09 AM QUIT TOBACCO >7 YEARS AGO [facility] Oct 06, 2006 09:30 AM CURRENT NON-TOBACC O USER-HX OF USE [facility] Oct 06, 2006 09:30 AM TOBACCO TERMINATION STAGE [facility] Advance Directives: All historical and current Section Date Range: From patient's date of to the date document was created. This section includes ALL of a patient's completed or amended [place] Advance and Rescinded Directives. The entries below indicate that a directive exists for the patient, but an actual copy is not included with this document. The data comes from all [place] facilities. Date Advance Directives Provider Source Jan 19, 2017 ADVANCE DIRECTIVE DISCUSSION ERICK BARDALES [facility] Radiology Reports: +/- 30 days of [...] the Encounter. The data comes from all [place] treatment facilities. Date/Time Radiology Report Provider Source Jun 07, 2024 02:[address] CHEST W/CONTRAS T & 3D: CHET WALKER [id number] -1950 M Ex Date: JUN 07, 2024@14:29 Req Phys: JOHANA REDDY Loc: [facility] (Req'g Im Loc: [facility] Service: [address] [address] (Case [id number] COMPLETE) CT THORAX, DIAGNOSTIC, W/CONTRAS(CT Detailed) CPT:07514 Contrast Media : Non-ionic Iodinated Reason for Study: Shortness of breath (Case [id number] COMPLETE) UNLISTED CT PROCEDURE (CT Detailed) CPT:73353 CPT Modifiers : 52 REDUCED SERVICES Clinical History: Responsible Attending: Dr. Orantes Attending Contact Number: [id number] Resident Contact Number: CT chest, high resolution Allergies listed in CPRS chart: TRAMADOL Creatinine: CREATININE 0.87 mg/dL 03/06/2024 09:52 /eGFR: STL EGFR (within one year). CREATININE 0.87 mg/dL (03/06/24 09:52) Wt: 233.1 lb [105.73 kg] (05/17/2024 08:37) History of: Renal failure, chronic or acute renal disease: NO Report Status: Verified Date Reported: JUN 07, 2024 Date Verified: JUN 07, 2024 City Recorder E-Sig:/ES/LISHA BRYANT Report: , [id number], [id number] INDICATION: Shortness of breath COMPARISON: None TECHNIQUE: [...] suggested. Primary Interpreting Staff: LISHA BRYANT, RADIOLOGIST (City Recorder) /LISHA AVITIA [facility] Jun 07, 2024 02:[address] ABD PEL W/CONT & 3D: CHET WALKER [id number] -1950 M Exm Date: JUN 07, 2024@14:28 Req Phys: JOHANA REDDY Loc: [facility] (Req'g Img Loc: [facility] IMAGING [facility] Service: Unknown [facility], [address] [place] [address] (Case [id number] COMPLETE) CT ABDOMEN AND PELVIS W/CONTRAST (CT Detailed) CPT:87558 Contrast Media : Non-ionic Iodinated Reason for Study: enlarged spleen (Case [id number] COMPLETE) CT 3D RENDERING W INDEPENDENT WOR(CT Detailed) CPT:74973 Clinical History: Responsible Attending: Dr. Orantes Attending Contact Number: [id number] Resident Contact Number: spleenomegally, evaluation for liver, lymphadenopathy Allergies listed in CPRS chart: TRAMADOL Creatinine:CREATININE 0.87 mg/dL 03/06/2024 09:52 /eGFR: STL EGFR (within one year). CREATININE 0.87 mg/dL (03/06/24 09:52) Wt: 233.1 lb [105.73 kg] (05/17/2024 08:37) History of: Renal failure, chronic or acute renal disease: NO Report Status: Verified Date Reported: JUN 07, 2024 Date Verified: JUN 07, 2024 City Recorder E-Sig:/ES/LISHA BRYANT Report: , [id number], [id number] INDICATION: Shortness of breath COMPARISON: None TECHNIQUE: [...] suggested. Primary Interpreting Staff: LISHA BRYANT, RADIOLOGIST (City Recorder) /LISHA AVITIA [facility] Encounter Notes: All associated encounter notes This section contains the clinical notes associated to the Encounter. Date/Time Encounter Note(s) Provider Source Jun 26, 2024 02:21 PM CARDIOLOGY TELEPHO NE ENCOUNTER NOTE: LOCAL TITLE: CARDIOLOGY TELEPHONE NOTE STL STANDARD TITLE: CARDIOLOGY TELEPHONE ENCOUNTER NOTE DATE OF NOTE: JUN 26, 2024@14:21 ENTRY DATE: JUN 26, 2024@14:21:39 AUTHOR: STEPHAN BRITO: URGENCY: STATUS: COMPLETED Transesophageal Echocardiogram (EMILE) Pre-Procedure Instructions Please read the following instructions carefully. -You are scheduled for your EMILE on Jun. (Please disregard any clinic appointment card you may receive related to this procedure) -Please report to the [facility] kiosk, located on the 2nd floor by 1000 am the day of your procedure. -Please DO NOT eat or drink anything after MIDNIGHT the night before your test. -You may take all of your medications with a sip of water the morning of your procedure. -You MUST have someone drive you the day of your procedure. You cannot drive for 24 hours after your procedure. If you are not able to have someone drive you, please contact the phone number listed below for assistance. -DO NOT bring any valuables or large sums of money with you to the hospital. However, please bring your [facility] identification card with you. - If you are diabetic, please DO NOT take your diabetic medications the morning of your procedure. - DO NOT STOP taking your prescribed Coumadin (Warfarin), Pradaxa (Dabigatran), Xarelto (Rivaroxiban) or Eliquis (Apixiban) unless you wereotherwise instructed to do so. -If you are feeling ill, taking antibiotics, or are unable to come the day of your procedure,please contact the phone number listed below. -Please plan on being here approximately 2-4 hours the day of your procedure. (This includes prep time, procedure time, as well as recovery time) Additional Instructions: If you have any questions, please call [phone] ext [phone] Spoke with patient, EMILE scheduled for Jun at 1000. Expectations for EMILE were reviewed in detail with patient including risks and benefits, questions answered, pt verbalized understanding. Pt was provided the following instructions verbally and they were mailed to his/her home as well. /shen/ STEPHAN BRITO MSN RN CCRN REGISTERED NURSE Signed: 06/26/2024 14:23 STEPHAN BRITO [facility]
--- OUTSIDE RECORDS SUMMARY | 2024-11-17 03:43 | XMS_ITS | Encounter Summary ---
Author Name [facility] [facility] [place] [facility] [place] Address [address] [place] [address] Care Team Providers Care Nut Threader Name Role Phone MANUEL BAIRD Primary [...] PART A Apr 08, 2017 PART A [id number] ASHLEY WALKER PATIENT Selected Encounter This section includes the information on record at [place] for the Encounter. Date/Time Encounter Type Encounter Description Reason Provider Source Jun 29, 2024 01:00 PM SELF CARE MNGMENT TRAINING PHYSICAL THERAPY ICD-10-CM R06.00 Dyspnea, unspecified OJAMERUAYE,O[facility] UKO IHE Encounter Template Text not used by [place] Assessments - Encounter Diagnoses This section includes the primary and secondary diagnoses documented for the Encounter. Date/Time Primary/Secondary Diagnosis Diagnosis Name Provider Source Jun 29, 2024 01:53 PM PRIMARY Dyspnea, unspecified OJAMERUAYE,[facility] UKO [facility] Plan of Treatment: Future Appointments (+ 6 months) and Future Tests (+/- 45 days) The Plan of Treatment section includes future care activities for the patient from [facility] [place] [facility] This section includes future appointments and future orders which are active, pending or scheduled. Future Appointments This section includes appointments that were scheduled to occur 6 months from the date of the Encounter, up to a maximum of 20 appointments. The data comes from all [facility]. Appointment Date/Time Appointment Type Appointme nt Facility Name Jul 03, 2024 10:30 AM AMBULATORY - MEDICINE [facility] Jul 14, 2024 12:54 PM AMBULATORY - SURGERY [facility] Jul 20, 2024 10:00 AM AMBULATORY - MEDICINE [facility] Aug 02, 2024 09:45 AM AMBULATORY - MEDICINE [facility] Aug 24, 2024 10:00 AM [facility] MEDIC[facility] Aug 24, 2024 10:30 AM AMBULATORY - MEDICINE [facility] Aug 30, 2024 09:30 AM AMBULATORY - MEDICINE [facility] Aug 31, 2024 01:00 PM AMBULATORY - SURGERY [facility] Sep 21, 2024 01:30 PM AMBULATORY MEDICINE [facility] Sep 22, 2024 11:00 AM AMBULATORY - MEDICINE [facility] Sep 29, 2024 12:30 PM AMBULATORY - MEDICINE [facility] Oct 02, 2024 09:30 AM AMBULATORY - MEDICINE [facility] Nov 20, 2024 10:30 AM AMBULATORY - SURGERY [facility] Nov 21, 2024 10:00 AM AMBULATORY - NONE [facility] Dec 11, 2024 10:30 AM AMBULATORY - MEDICINE [facility] Active, Pending, and Scheduled Orders [...] - Chemistry Order CBC BLOOD STAT SP [facility] Aug 02, 2024 12:00 AM Laboratory - Chemistry Order COMPREHENSIVE METABOLIC PANEL GREEN LI/HEP BLD/PLAS PLASMA SP [facility] Lab Results: +/- 30 days of the encounter This section includes the Chemistry and Hematology Lab Results on record with [place] for the patient. Radiology Reports and Pathology Reports are provided separately, in subsequent sections. Lab Results This section contains the Chemistry/Hematology Results that were resulted 30 days before or 30 daysafter the date of the Encounter. Date/Time Source Result Type Result - Unit Interpretation Reference Range Comment Jul 20, 2024 11:18 AM [facility] APTT Specimen Type: PLASMA No comment entered. Ordering Provider: MANUEL BAIRD Report Released Date/Time: Jul 19, 2024 04:00 PM Reporting Lab: [place] [address] [facility] [address] Performing Lab: [address] [address] APTT 32.1 s 26.7-39.9 Jul 20, 2024 11:18 AM [facility] PT/INR NEW ([facility]) Specimen Type: PLASMA No comment entered. Ordering Provider: MANUEL BAIRD Report Released Date/Time: Jul 19, 2024 04:00 PM Reporting Lab: [place] [address] [facility] [address] Performing Lab: [facility] [address] [facility] [address] PROTIME 14.4 s H 9.4-12.5 INR VALUE 1.3 {INR} Jul 20, 2024 11:18 AM [facility] CBC Specimen Type: BLOOD No comment entered. Ordering Provider: MANUEL BAIRD Report Released Date/Time: Jul 19, 2024 04:00 PM Reporting Lab: [facility] [address] [facility] [address] Performing Lab: [place] [address] [facility] [address] WBC 4.7 10*3/uL 3.6-11.2 RBC 4.86 10*6/uL [...] 1.6 1.0-7.0 Jul 17, 2024 08:02 AM [facility] BASIC METABOLIC PANEL Specimen Type: PLASMA Comment: No hemolysis noted. Ordering Provider: WELLINGTON SERNA Report Released Date/Time: Jun 07, 2024 01:43 PM Reporting Lab: [address] [address] Performing Lab: [address] [address] CREATININE 0.85 mg/dL 0.7-1.3 UREA NITROGEN 15.2 mg/dL 9.0-25.0 GLUCOSE 120 mg/dL H 72-99 SODIUM 141 meq/L 136-145 POTASSIUM 4.4 meq/L 3.5-5 CHLORIDE 107 meq/L 98-107 CARBON DIOXIDE 26 meq/L 22-31 CALCIUM 9.2 mg/dL 8.4-10.4 EGFR (CKD-EPI 2020) 92.3 >60 Jun 19, 2024 07:30 AM [facility] PT/INR NEW (STL-MA) Specimen Type: PLASMA No comment entered. Ordering Provider: ROSE PITTS AEJulián Report Released Date/Time: Jun 12, 2024 10:14 AM Reporting Lab: [address] [address] Performing Lab: [address] [address] PROTIME 13.3 s H 9.4-12.5 INR VALUE 1.2 {INR} Jun 19, 2024 07:30 AM [facility] BASIC METABOLIC PANEL Specimen Type: PLASMA Comment: K result may show a positive bias due to hemolysis. Specimen slightly hemolyzed. Ordering Provider: ROSE PITTS Report Released Date/Time: Jun 12, 2024 10:14 AM Reporting Lab: [address] [address] Performing Lab: [address] [address] CREATININE 0.85 mg/dL 0.7-1.3 UREA NITROGEN 11.9 mg/dL 9.0-25.0 GLUCOSE 106 mg/dL H 72-99 SODIUM 141 meq/L 136-145 POTASSIUM 4.4 meq/L 3.5-5 CHLORIDE 110 meq/L H 98-107 CARBON DIOXIDE 22 meq/L 22-31 CALCIUM 9.9 mg/dL 8.4-10.4 EGFR (CKD-EPI 2020) 92.3 >60 Jun 19, 2024 07:30 AM [facility] CBC Specimen Type: BLOOD No comment entered. Ordering Provider: ROSE PITTS AEJulián Report Released Date/Time: Jun 12, 2024 10:14 AM Reporting Lab: [address] [address] Performing Lab: [address] [address] WBC 5.1 10*3/uL 3.6-11.2 RBC 5.31 10*6/uL [...] 2.3 1.0-7.0 Jun 19, 2024 07:29 AM [facility] GLUCOSE,BLOOD-poct (STL) Specimen Type: BLOOD Comment: Test Performed by: [id number] Meter #: [id number] Ordering Provider: CARROLL HAGEN Report Released Date/Time: Jun 19, 2024 06:58 PM Reporting Lab: [address] [address] Performing Lab: [address] [address] GLUCOSE,BLOOD -poct (STL) 108 mg/dL H 72-99 Jun 09, 2024 11:48 AM [facility] MICRAL/CREAT PROFILE (STL) Specimen Type: URINE No comment entered. Ordering Provider: WELLINGTON SERNA Report Released Date/Time: Jun 07, 2024 01:44 PM Reporting Lab: [address] [address] Performing Lab: [address] [address] URINE ALBUMIN (PB-STL) 167.5 mg/L uACR (STL) 103 mg/g H 0-29 CREATININE URINE/OTHERS 163.4 mg/dL 63-166 Jun 07, 2024 02:22 PM [facility] BRAIN NATRIURETIC PEPTIDE Specimen Type: PLASMA No comment entered. Ordering Provider: WELLINGTON SERNA Report Released Date/Time: Jun 07, 2024 01:32 PM Reporting Lab: [place] [address] [facility] [address] Performing Lab: [address] [address] BRAIN NATRIURETIC PEPTIDE 198.9 pg/mL H 0-100 Jun 07, 2024 02:22 PM [facility] hsCRP Specimen Type: SERUM No comment entered. Ordering Provider: WELLINGTON SERNA Report Released Date/Time: Jun 07, 2024 01:42 PM Reporting Lab: [address] [address] Performing Lab: [address] [address] hsCRP 4.65 mg/L H 0-3.1 Jun 07, 2024 02:22 PM [facility] MAGNESIUM Specimen Type: PLASMA No comment entered. Ordering Provider: WELLINGTON SERNA Report Released Date/Time: Jun 07, 2024 01:44 PM Reporting Lab: [address] [address] Performing Lab: [address] [address] MAGNESIUM 1.7 mg/dL 1.6-2.6 Jun 05, 2024 09:00 AM [facility] FSH (STL-MA) Specimen Type: SERUM Comment: Test Performed by Sander Thornton, [facility], [address] [place] [address] Tommie Garcia M.D., Ph.D., Director of Laboratories , [place] [id number] Ordering Provider: EMILIA CALHOUN Report Released Date/Time: Jun 05, 2024 08:45 AM Reporting Lab: [facility] [address] [facility] [address] Performing Lab: [address] FSH (STL-MA) 5.5 m[IU]/mL 1.4-12.8 Jun 05, 2024 09:00 AM [facility] LUTEINIZING HORMONE Specimen Type: SERUM Comment: Test Performed by [facility], [facility], [address] [place] [address] Tommie Garcia M.D., Ph.D., Director of Laboratories , [facility] [id number] Ordering Provider: EMILIA CALHOUN Report Released Date/Time: Jun 05, 2024 08:45 AM Reporting Lab: [address] [address] Performing Lab: [address] LUTEINIZING HORMONE 2.7 m[IU]/mL 1.6-15.2 Jun 05, 2024 09:00 AM [facility] PROLACTIN (L-Eff 08/15) Specimen Type: PLASMA No comment entered. Ordering Provider: EMILIA CALHOUN Report Released Date/Time: Jun 05, 2024 08:45 AM Reporting Lab: [address] [address] Performing Lab: [address] [address] PROLACTIN (STL-Eff 08/15) 41.98 ng/mL H 3.5-19.4 Jun 05, 2024 09:00 AM [facility] TSH (MA-PB) Specimen Type: SERUM No comment entered. Ordering Provider: EMILIA CALHOUN Report Released Date/Time: Jun 05, 2024 08:45 AM Reporting Lab: [address] [address] Performing Lab: [address] [place] [address] TSH 3.510 u[IU]/mL 0.47-5 Jun 05, 2024 09:00 AM [facility] FREE T4 (MA-PB) Specimen Type: SERUM No comment entered. Ordering Provider: EMILIA CALHOUN Report Released Date/Time: Jun 05, 2024 08:45 AM Reporting Lab: [place] [address] [facility] [address] Performing Lab: [place] [address] [facility] [address] FREE T4 (MA-PB) 0.78 ng/mL 0.7-1.48 Vital Signs: All taken on the encounter date This section contains inpatient and outpatient Vital Signs collected on the date of the Encounter. Date/Time Temperature Pulse Blood Pressure Respiratory Rate SP02 Pain Height Weight Body Mass Index Source Jun 29, 2024 12:58 PM 97.6 54 122/55 18 97 0 70 241.3 35 [facility] Social History: Smoking Status (Most current) and Tobacco Use (All prior to encounter date) This section includes the most current, and the historical, smoking and tobacco- related health factors from the [place] facility where the Encounter took place. Current Smoking Status This section includes the most current smoking, or tobacco-related health factor, from the [place] facility where the Encounter took place. Date/Time Current Smoking Status Comment Radhika goins Aug 11, 2016 10:34 AM QUIT TOBACCO >7 YEARS AGO [facility] Tobacco Use History This section includes a history of the smoking, or tobacco-related health factors, that were collected on or before the date of the Encounter. The data comes from the [place] facility where the Encounter took place. Date/Time Smoking Status/Tobacco Use Comment F acility Sep 30, 2015 10:12 AM QUIT TOBACCO >7 YEARS AGO [facility] Oct 29, 2014 10:23 AM QUIT TOBACCO >7 YEARS AGO [facility] Dec 27, 2013 01:27 PM QUIT TOBACCO >7 YEARS AGO [facility] Feb 24, 2013 02:01 PM LIFETIME NON-USER OF TOBACCO [facility] Feb 11, 2009 10:09 AM QUIT TOBACCO >7 YEARS AGO [facility] Oct 06, 2006 09:30 AM CURRENT NON-TOBACC O USER-HX OF USE [facility] Oct 06, 2006 09:30 AM TOBACCO TERMINATION STAGE [facility] Advance Directives: All historical and current Section Date Range: From patient's date of to the date document was created. This section includes ALL of a patient's completed or amended [place] Advance and Rescinded Directives. The entries below indicate that a directive exists for the patient, but an actual copy is not included with this document. The data comes from all [place] facilities. Date Advance Directives Provider Source Jan 19, 2017 ADVANCE DIRECTIVE DISCUSSION ERICK BARDALES [facility] Radiology Reports: +/- 30 days of the [...] the Encounter. The data comes from all [place] treatment facilities. Date/Time Radiology Report Provider Source Jun 07, 2024 02:[address] CHEST W/CONTRAS T & 3D: CHET WALKER [id number] -[id number] M Exm Date: JUN 07, 2024@14:29 Req Phys: JOHANA REDDY Pat Loc: [facility]-ONCOLOGY [facility] (Req'g Im Loc: [facility]-CT IMAGING [facility] Service: Unknown [facility], [facility] [address] [place] [address] (Case [id number] COMPLETE) CT THORAX, DIAGNOSTIC, W/CONTRAS(CT Detailed) CPT:42772 Contrast Media : Non-ionic Iodinated Reason for Study: Shortness of breath (Case [id number] COMPLETE) UNLISTED CT PROCEDURE (CT Detailed) CPT:30554 CPT Modifiers : 52 REDUCED SERVICES Clinical History: Responsible Attending: Dr. Orantes Attending Contact Number: [phone] Resident Contact Number: CT chest, high resolution Allergies listed in CPRS chart: TRAMADOL Creatinine: CREATININE 0.87 mg/dL 03/06/2024 09:52 /eGFR: STL EGFR (within one year). CREATININE 0.87 mg/dL (03/06/24 09:52) Wt: 233.1 lb [105.73 kg] (05/17/2024 08:37) History of: Renal failure, chronic or acute renal disease: NO Report Status: Verified Date Reported: JUN 07, 2024 Date Verified: JUN 07, 2024 Cartridge Assembling Machine Adjuster E-Sig:/ES/LISHA BRYANT Report: , [id number], [id number] INDICATION: Shortness of breath COMPARISON: None TECHNIQUE: [...] suggested. Primary Interpreting Staff: LISHA BRYANT, RADIOLOGIST (Cartridge Assembling Machine Adjuster) /LISHA AVITIA [facility] Jun 07, 2024 02:[address] ABD PEL W/CONT & 3D: CHET WALKER [id number] -[id number] M Exm Date: JUN 07, 2024@14:28 Req Phys: KOBY JOHANA SMITH Loc: [facility]-ONCOLOGY [facility] (Req'g Img Loc: Y[facility]-CT IMAGING [facility] Service: Unknown [facility], [facility] [address] [place] [address] (Case [id number] COMPLETE) CT ABDOMEN AND PELVIS W/CONTRAST (CT Detailed) CPT:25770 Contrast Media : Non-ionic Iodinated Reason for Study: enlarged spleen (Case 3137 COMPLETE) CT 3D RENDERING W INDEPENDENT WOR(CT Detailed) CPT:25761 Clinical History: Responsible Attending: Dr. Orantes Attending Contact Number: [phone] Resident Contact Number: spleenomegally, evaluation for liver, lymphadenopathy Allergies listed in CPRS chart: TRAMADOL Creatinine:CREATININE 0.87 mg/dL 03/06/2024 09:52 /eGFR: STL EGFR (within one year). CREATININE 0.87 mg/dL (03/06/24 09:52) Wt: 233.1 lb [105.73 kg] (05/17/2024 08:37) History of: Renal failure, chronic or acute renal disease: NO Report Status: Verified Date Reported: JUN 07, 2024 Date Verified: JUN 07, 2024 Cartridge Assembling Machine Adjuster E-Sig:/ES/LISHA BRYANT Report: , [id number], [id number] INDICATION: Shortness of breath COMPARISON: None TECHNIQUE: [...] suggested. Primary Interpreting Staff: LISHA BRYANT, RADIOLOGIST (Cartridge Assembling Machine Adjuster) /[facility] Encounter Notes: All associated encounter notes This section contains the clinical notes associated to the Encounter. Date/Time Encounter Note(s) Provider Source Jun 29, 2024 01:15 PM PHYSICAL THERAPY NOTE: LOCAL TITLE: PT ASSESSMENT ST STANDARD TITLE: PHYSICAL THERAPY NOTE DATE OF NOTE: JUN 29, 2024@13:15 ENTRY DATE: JUN 29, 2024@13:15:25 AUTHOR: KLAUS CAMERON COSIGNER: URGENCY: STATUS: COMPLETED PRE-OPERATIVE PHYSICAL THERAPY EVALUATION Time: [id number] (25 mins.) Tx: PT Evaluation: 10 mins. Self-care management/Education: 15 mins. Visits to date: F2F 1 Phone 0 Video 0 Cancellations 0 No Show 0 Referring provider: [x] Suzie Rudolph NP Attending/Surgeon: []Imelda Diehl MD [x]Johnathan Mckee MD -Other people involved in treatment []None [x]Included: son (Gil) Chart Review PMH: 1) Asthma (SNOMED CT 211896732) 2) Gastro-esophageal reflux disease (SNOMED CT 409696164) 3) Peptic Ulcer Disease * (ICD-9-CM 533.90) 4) Hypertension (SNOMED CT 28746005) 5) Neoplasm of pituitary gland (SNOMED CT 241888835) 6) Hyperlipidemia (SNOMED CT 93427205) 7) Erectile dysfunction associated with type 2 diabetes mellitus 8) Osteoarthritis of knee 9) Diabetes mellitus with neuropathy 10) Low back pain 11) Obesity 12) Patellofemoral syndrome of right knee 13) History of left total knee replacement 14) History of arthroplasty of right knee 15) Exposure to potentially hazardous substance 16) Fatty liver 17) Heart failure 18) Thrombocytopenia --- SUBJECTIVE: i've been this way for 5 years HPI: 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 LVEF 45-50%. Diabetic pt for CABG eval. CC: BLE hurting today from walking Home setting: lives with son. 3 [address] with bilateral handrails, someone assist with home care, basement for laundry Functional ability: independent with mobilitya and self-care, son assists with IADLs. Walks with a SPC for balance. Owns a rollator. Reports BLE neuropathy. Reports one fall 1 month ago from bed (slipped) [place]'s goals: unstated --- Objective: Arrived to clinic in NAD. Cognition: A&Ox4. Appropriate in conversation. VITALS: Position; BP; HR Resting: sitting; 122/55, 54 -Description: on RA AROM: WNL actively Strength: Grossly 4-/5 throughout Sensation: impaired BLE 2/2 to neuropathy Mobility: Ambulates independently with SPC, CGA without an AD. No significant gait deviations. OUTCOME MEASURES: -Short Performance Physical Battery (SPPB): Balance 1 point if can peform Side by Side: (10sec) Semi Tandem: (10seconds) Tandem Stance: (10seconds, 2pts if completed 1 pt if 3-9 sec) Balance score: 2 Strength: 17.11 5 Times Sit to Stand: (4 pts: <11.19sec; 3pts:11.2-13.7; 2pts: 13.7-16.7, 1pts: >16.7sec, 0pts >60seconds) Strength score: 1 Gait speed: 6.0 4 meters: 4pts <4.82sec; 3pts 4.8-6.2sec; 2pts 6.2-8.7 1pts >8.7sec Gait speed score: 3 Total score: 6/12 Norms: Community Dwelling Older Adults (Leah Mcdaniel, Matthew et al 2016) Fallers : 8.2 Non Fallers: 9.5 --- Interpretation --- 4-6 points = Relative risk of 4.2 to develop ADL-related disability in 4-year period/high risk of mortality, group home admission, hospitalization, incidence of disability. 7-9 points = Relative risk of 1.6 to develop ADL-related Disability in 4-year period/moderate risk of mortality, group home admission, hospitalization, incidence of disability. 10-12 points = Low risk of developing ADL-related disability in 4-year period/moderate risk of mortality, group home admission, hospitalization, incidence of disability. Minimal clinically important differences (MCID) = 1-2 points. --- INTERVENTIONS: -PT Evaluation: Mod Complexity level -Selfcare management: Education and discussion with vet regarding what to expect post-operatively, how the sternum heals, purpose and benefits of sternal precautions, duration of precautions, need for assistance at home 24/7 post-op for minimum 10 days to 2 weeks, minimum functional abilities required to return home after surgery, and recommendations to go to [facility] if unable to perform the minimum functional tasks required for safe home DC. ASSESSMENT: Pt is a 74 y.o. individual referred to PT for pre-operative functional assessment and education regarding a proposed surgery. Pt demonstrates moderate balance impairment 2/2 to neuropathy. He also demonstrates poor cardiorespiratory capacity as he fatigued walking under 100 feet. Based on today's findings, vet [x] IS [] IS NOT expected to need inpatient jail or extended care Rehab following heart surgery, beyond acute hospitalization. Short term goals: (1 visit) 1) Address functional deficits prior to surgery and make recommendations (met) 2) Determine likelihood of need for post-hospitalization rehabilitation.(met) 3) Vet to verbalize understanding of post-op sternal precautions and necessary modifications to activity these precautions require.(met) PLAN: Discharge from PT. Re-assess post-op @Cardiac Clinic . Patient Education Documentation: PATIENT EDUCATION Patient/Caregiver appeared ready for instruction (good eye contact, appropriate questions, active participation, etc.) Person(s) who received education: Patient Education Topic/Teaching Needs: Treatment/Procedure (Non-Surgical) Purpose and benefits of PT Methods used included: Oral: verbal explanation Written: Walking progress log, PRETTY exertion and dyspnea scales, Tips for exercising handout. Teaching outcomes: Good level of understanding Comment: pt. expressed good understanding and participated in all tasks presented. The patient presented with the following number of personal factors/comorbidities influencing the PT plan of care: -> home setting/ barriers to mobility -> level of assistance available at home -> chronicity of disease process -> prior level of function -> number and severity of comorbidities -> social barriers to recovery Total number of elements examined: -> cognition -> vitals -> ROM -> Strength -> balance -> gait -> Outcome measures The patients CLINICAL PRESENTATION was: [] Stable and/or Uncomplicated: [x] Evolving Clinical Presentation with Changing Clinical Characteristics: [] Unstable and Unpredictable Characteristics: Therefore the level of complexity for this patient was: [] Low, [x] Moderate, [] High *Reach me by Teams/Vocera for case discussion, as needed* /shen/ KLAUS CAMERON Physical Therapist Signed: 06/29/2024 13:53 KLAUS CAMERON [facility]
--- OUTSIDE RECORDS SUMMARY | 2024-11-17 03:43 | XMS_ITS | Encounter Summary ---
Author Name [facility] [place] Organization [facility] [place] Address [address] [place] [address] Care Team Providers Care Network Support Engineer Name Role Phone MANUEL BAIRD Primary Care [...] PART A Apr 08, 2017 PART A [id number] ASHLEY FINK PATIENT Selected Encounter This section includes the information on record at OR for the Encounter. Date/Time Encounter Type Encounter Description Reason Pro vider Source Jul 03, 2024 10:57 AM Outpatient Encounter ADMIN PAT ACTIVTIES (MASNONCT) IHE Encounter Template Text not used by OR Plan of Treatment: Future Appointments (+ 6 [...] 20 appointments. The data comes from all [facility]. Appointment Date/Time Appointment Type Appointme nt Facility Name Jul 14, 2024 12:54 PM AMBULATORY - SURGERY [facility] Jul 20, 2024 10:00 AM AMBULATORY - MEDICINE [facility] Aug 02, 2024 09:45 AM AMBULATORY - MEDICINE [facility] Aug 24, 2024 10:00 AM AMBULATORY - MEDICINE [facility] Aug 24, 2024 10:30 AM AMBULATORY - MEDICINE [facility] Aug 30, 2024 09:30 AM AMBULATORY - MEDICINE [facility] Aug 31, 2024 01:00 PM AMBULATORY - SURGERY [facility] Sep 21, 2024 01:30 PM AMBULATORY - MEDICINE [facility] Sep 22, 2024 11:00 AM AMBULATORY - MEDICINE [facility] Sep 29, 2024 12:30 PM AMBULATORY - MEDICINE [facility] Oct 02, 2024 09:30 AM AMBULATORY - MEDICINE [facility] Nov 20, 2024 10:30 AM AMBULATORY - SURGERY [facility] Nov 21, 2024 10:00 AM AMBULATORY - NONE [facility] Dec 11, 2024 10:30 AM AMBULATORY - MEDICINE [facility] Active, Pending, and Scheduled Orders This section includes a listing of several types of active, pending, and scheduled orders, including clinic medications orders, diagnostic test orders, procedure orders and consult orders; where the start date of the order is 45 days before the date of the Encounter or 45 days after the date of theEncounter. The data comes from all [facility]. Test Date/Time Test Type Test Details Facility Name Aug 02, 2024 12:00 AM Laboratory - Chemistry Order CBC BLOOD STAT SP [facility] Aug 02, 2024 12:00 AM Laboratory - Chemistry Order COMPREHENSIVE METABOLIC PANEL GREEN LI/HEP BLD/PLAS PLASMA SP [facility] Aug 17, 2024 03:47 PM Consult Order [facility] Cons Bedside [facility] Lab Results: +/- 30 days of the encounter This section includes the Chemistry and Hematology Lab Results on record with OR for the patient. Radiology Reports and Pathology Reports are provided separately, in subsequent sections. Lab Results This section contains the Chemistry/Hematology Results that were resulted 30 days before or 30 daysafter the date of the Encounter. Date/Time Source Result Type Result - Unit Interpretation Reference Range Comment Jul 20, 2024 11:18 AM [facility] APTT Specimen Type: PLASMA No comment entered. Ordering Provider: MANUEL BAIRD Report Released Date/Time: Jul 19, 2024 04:00 PM Reporting Lab: [address] [address] Performing Lab: [address] [address] APTT 32.1 s 26.7-39.9 Jul 20, 2024 11:18 AM [facility] PT/INR NEW ([facility]) Specimen Type: PLASMA No comment entered. Ordering Provider: MANUEL BAIRD Report Released Date/Time: Jul 19, 2024 04:00 PM Reporting Lab: [address] [address] Performing Lab: [address] [address] PROTIME 14.4 s H 9.4-12.5 INR VALUE 1.3 {INR} Jul 20, 2024 11:18 AM [facility] CBC Specimen Type: BLOOD No comment entered. Ordering Provider: MANUEL BAIRD Report Released Date/Time: Jul 19, 2024 04:00 PM Reporting Lab: [address] [address] Performing Lab: [address] [address] WBC 4.7 10*3/uL 3.6-11.2 RBC 4.86 10*6/uL [...] 1.6 1.0-7.0 Jul 17, 2024 08:02 AM [facility] BASIC METABOLIC PANEL Specimen Type: PLASMA Comment: No hemolysis noted. Ordering Provider: WELLINGTON SERNA Report Released Date/Time: Jun 07, 2024 01:43 PM Reporting Lab: [address] [address] Performing Lab: [address] [address] CREATININE 0.85 mg/dL 0.7-1.3 UREA NITROGEN 15.2 mg/dL 9.0-25.0 GLUCOSE 120 mg/dL H 72-99 SODIUM 141 meq/L 136-145 POTASSIUM 4.4 meq/L 3.5-5 CHLORIDE 107 meq/L 98-107 CARBON DIOXIDE 26 meq/L 22-31 CALCIUM 9.2 mg/dL 8.4-10.4 EGFR (CKD-EPI 2020) 92.3 >60 Jun 19, 2024 07:30 AM [facility] PT/INR NEW (L-LA) Specimen Type: PLASMA No comment entered. Ordering Provider: ROSE PITTS Report Released Date/Time: Jun 12, 2024 10:14 AM Reporting Lab: [address] [address] Performing Lab: [facility] [address] [facility] [address] PROTIME 13.3 s H 9.4-12.5 INR VALUE 1.2 {INR} Jun 19, 2024 07:30 AM [facility] BASIC METABOLIC PANEL Specimen Type: PLASMA Comment: K result may show a positive bias due to hemolysis. Specimen slightly hemolyzed. Ordering Provider: ROSE PITTS AEL Report Released Date/Time: Jun 12, 2024 10:14 AM Reporting Lab: [address] [address] Performing Lab: [address] [address] CREATININE 0.85 mg/dL 0.7-1.3 UREA NITROGEN 11.9 mg/dL 9.0-25.0 GLUCOSE 106 mg/dL H 72-99 SODIUM 141 meq/L 136-145 POTASSIUM 4.4 meq/L 3.5-5 CHLORIDE 110 meq/L H 98-107 CARBON DIOXIDE 22 meq/L 22-31 CALCIUM 9.9 mg/dL 8.4-10.4 EGFR (CKD-EPI 2020) 92.3 >60 Jun 19, 2024 07:30 AM [facility] CBC Specimen Type: BLOOD No comment entered. Ordering Provider: ROSE PITTS AEL Report Released Date/Time: Jun 12, 2024 10:14 AM Reporting Lab: [address] [address] Performing Lab: [address] [address] WBC 5.1 10*3/uL 3.6-11.2 RBC 5.31 10*6/uL [...] 2.3 1.0-7.0 Jun 19, 2024 07:29 AM [facility] GLUCOSE,BLOOD-poct (STL) Specimen Type: BLOOD Comment: Test Performed by: [id number] Meter #: [id number] Ordering Provider: CARROLL HAGEN Report Released Date/Time: Jun 19, 2024 06:58 PM Reporting Lab: [address] [address] Performing Lab: [address] [address] GLUCOSE,BLOOD -poct (STL) 108 mg/dL H 72-99 Jun 09, 2024 11:48 AM [facility] MICRAL/CREAT PROFILE (STL) Specimen Type: URINE No comment entered. Ordering Provider: WELLINGTON SERNA Report Released Date/Time: Jun 07, 2024 01:44 PM Reporting Lab: [place] [address] [facility] [address] Performing Lab: [address] [address] URINE ALBUMIN (PB-STL) 167.5 mg/L uACR (STL) 103 mg/g H 0-29 CREATININE URINE/OTHERS 163.4 mg/dL 63-166 Jun 07, 2024 02:22 PM [facility] BRAIN NATRIURETIC PEPTIDE Specimen Type: PLASMA No comment entered. Ordering Provider: WELLINGTON SERNA Report Released Date/Time: Jun 07, 2024 01:32 PM Reporting Lab: [address] [address] Performing Lab: [address] [address] BRAIN NATRIURETIC PEPTIDE 198.9 pg/mL H 0-100 Jun 07, 2024 02:22 PM [facility] hsCRP Specimen Type: SERUM No comment entered. Ordering Provider: WELLINGTON SERNA Report Released Date/Time: Jun 07, 2024 01:42 PM Reporting Lab: [address] [address] Performing Lab: [address] [address] hsCRP 4.65 mg/L H 0-3.1 Jun 07, 2024 02:22 PM [facility] MAGNESIUM Specimen Type: PLASMA No comment entered. Ordering Provider: WELLINGTON SERNA Report Released Date/Time: Jun 07, 2024 01:44 PM Reporting Lab: [address] [address] Performing Lab: [address] [address] MAGNESIUM 1.7 mg/dL 1.6-2.6 Jun 05, 2024 09:00 AM [facility] FSH (STL-MA) Specimen Type: SERUM Comment: Test Performed by [facility], [address] [place] [address] Tommie Garcia M.D., Ph.D., Director of Laboratories , [place] [id number] Ordering Provider: EMILIA CALHOUN Report Released Date/Time: Jun 05, 2024 08:45 AM Reporting Lab: [address] [address] Performing Lab: [facility] [address] [facility] FSH (STL-MA) 5.5 m[IU]/mL 1.4-12.8 Jun 05, 2024 09:00 AM [facility] LUTEINIZING HORMONE Specimen Type: SERUM Comment: Test Performed by [facility], [facility], [address] [place], [place] Tommie Garcia M.D., Ph.D., Director of Laboratories , [facility] [id number] Ordering Provider: EMILIA CALHOUN Report Released Date/Time: Jun 05, 2024 08:45 AM Reporting Lab: [address] [address] Performing Lab: [facility] [address] [facility] LUTEINIZING HORMONE 2.7 m[IU]/mL 1.6-15.2 Jun 05, 2024 09:00 AM [facility] PROLACTIN (STL-Eff 08/15) Specimen Type: PLASMA No comment entered. Ordering Provider: EMILIA CALHOUN Report Released Date/Time: Jun 05, 2024 08:45 AM Reporting Lab: [facility] [address] [place] [address] Performing Lab: [address] [address] PROLACTIN (STL-Eff 08/15) 41.98 ng/mL H 3.5-19.4 Jun 05, 2024 09:00 AM [facility] TSH (MA-PB) Specimen Type: SERUM No comment entered. Ordering Provider: EMILIA CALHOUN Report Released Date/Time: Jun 05, 2024 08:45 AM Reporting Lab: [facility] [address] [place] [address] Performing Lab: [address] [address] TSH 3.510 u[IU]/mL 0.47-5 Jun 05, 2024 09:00 AM [facility] FREE T4 (MA-PB) Specimen Type: SERUM No comment entered. Ordering Provider: EMILIA CALHOUN Report Released Date/Time: Jun 05, 2024 08:45 AM Reporting Lab: [facility] [address] [facility] [address] Performing Lab: [facility] [address] [facility] [address] FREE T4 (MA-PB) 0.78 ng/mL 0.7-1.48 Social History: Smoking Status (Most current) and Tobacco Use (All prior to encounter date) This section includes the most current, and the historical, smoking and tobacco- related health factors from the OR facility where the Encounter took place. Current Smoking Status This section includes the most current smoking, or tobacco-related health factor, from the OR facility where the Encounter took place. Date/Time Current Smoking Status Comment Radhika ity Aug 11, 2016 10:34 AM QUIT TOBACCO >7 YEARS AGO [facility] Tobacco Use History This section includes a history of the smoking, or tobacco-related health factors, that were collected on or before the date of the Encounter. The data comes from the [place] facility where the Encounter took place. Date/Time Smoking Status/Tobacco Use Comment F acility Sep 30, 2015 10:12 AM QUIT TOBACCO >7 YEARS AGO [facility] Oct 29, 2014 10:23 AM QUIT TOBACCO >7 YEARS AGO [facility] Dec 27, 2013 01:27 PM QUIT TOBACCO >7 YEARS AGO [facility] Feb 24, 2013 02:01 PM LIFETIME NON-USER OF TOBACCO [facility] Feb 11, 2009 10:09 AM QUIT TOBACCO >7 YEARS AGO [facility] Oct 06, 2006 09:30 AM CURRENT NON-TOBACC O USER-HX OF USE [facility] Oct 06, 2006 09:30 AM TOBACCO TERMINATION STAGE [facility] Advance Directives: All historical and current Section Date Range: From patient's date of to the date document was created. This section includes ALL of a patient's completed or amended OR Advance and Rescinded Directives. The entries below indicate that a directive exists for the patient, but an actual copy is not included with this document. The data comes from all OR facilities. Date Advance Directives Provider Source Jan 19, 2017 ADVANCE DIRECTIVE DISCUSSION ERICK BARDALES [facility] Radiology Reports: +/- 30 days of [...] the Encounter. The data comes from all OR treatment facilities. Date/Time Radiology Report Provider Source Jun 07, 2024 02:[address] CHEST W/CONTRAS T & 3D: ABIEL FINK [id number] -[id number] M Exm Date: JUN 07, 2024@14:29 Req Phys: JOHANA REDDY Loc: [facility]-ONCOLOGY K[facility]I (Req'g Img Loc: [facility]-CT IMAGING Service: [facility], [facility] [address] [place] [address] (Case [id number] COMPLETE) CT THORAX, DIAGNOSTIC, W/CONTRAS(CT Detailed) CPT:58571 Contrast Media : Non-ionic Iodinated Reason for Study: Shortness of breath (Case [id number] COMPLETE) UNLISTED CT PROCEDURE (CT Detailed) CPT:88742 CPT Modifiers : 52 REDUCED SERVICES Clinical History: Responsible Attending: Dr. Orantes Attending Contact Number: [id number] Resident Contact Number: CT chest, high resolution Allergies listed in CPRS chart: TRAMADOL Creatinine: CREATININE 0.87 mg/dL 03/06/2024 09:52 /eGFR: STL EGFR (within one year). CREATININE 0.87 mg/dL (03/06/24 09:52) Wt: 233.1 lb [105.73 kg] (05/17/2024 08:37) History of: Renal failure, chronic or acute renal disease: NO Report Status: Verified Date Reported: JUN 07, 2024 Date Verified: JUN 07, 2024 Loom Fixer E-Sig:/ES/LISHA BRYANT Report: , [id number], [id number] INDICATION: Shortness of breath COMPARISON: None TECHNIQUE: [...] suggested. Primary Interpreting Staff: LISHA BRYANT, RADIOLOGIST (Loom Fixer) /LISHA AVITIA [facility] Jun 07, 2024 02:[address] ABD PEL W/CONT & 3D: ABIEL FINK [id number] -1950 M Ex Date: JUN 07, 2024@14:28 Req Phys: JOHANA REDDY Pat Loc: [facility]-ONCOLOGY [facility]I (Req'g Img Loc: YASH-CT IMAGING YASH Service: Unknown [facility], [facility] [address] [place] [address] (Case [id number] COMPLETE) CT ABDOMEN AND PELVIS W/CONTRAST (CT Detailed) CPT:33888 Contrast Media : Non-ionic Iodinated Reason for Study: enlarged spleen (Case [id number] COMPLETE) CT 3D RENDERING W INDEPENDENT WOR(CT Detailed) CPT:90029 Clinical History: Responsible Attending: Dr. Orantes Attending Contact Number: [id number] Resident Contact Number: spleenomegally, evaluation for liver, lymphadenopathy Allergies listed in CPRS chart: TRAMADOL Creatinine:CREATININE 0.87 mg/dL 03/06/2024 09:52 /eGFR: STL EGFR (within one year). CREATININE 0.87 mg/dL (03/06/24 09:52) Wt: 233.1 lb [105.73 kg] (05/17/2024 08:37) History of: Renal failure, chronic or acute renal disease: NO Report Status: Verified Date Reported: JUN 07, 2024 Date Verified: JUN 07, 2024 Loom Fixer E-Sig:/ES/LISHA BRYANT Report: , [id number], [id number] INDICATION: Shortness of breath COMPARISON: None TECHNIQUE: [...] suggested. Primary Interpreting Staff: LISHA BRYANT, RADIOLOGIST (Loom Fixer) /LISHA [facility]IT[facility] Encounter Notes: All associated encounter notes This section contains the clinical notes associated to the Encounter. Date/Time Encounter Note(s) Provider Source Jul 03, 2024 10:57 AM PHYSICIAN LETTERS: LOCAL TITLE: NO SHOW LETTER STL STANDARD TITLE: PHYSICIAN LETTERS DATE OF NOTE: JUL 03, 2024@10:57 ENTRY DATE: JUL 03, 2024@10:57:18 AUTHOR: DICKSON CASPER EXP COSIGNER: URGENCY: STATUS: COMPLETED [facility] [address] [place] [address] JUL 03, 2024 ABIEL FINK [address] [place], [place] [address] Dear Abiel Fink, Thank you for choosing the [facility] as your primary choice for health care. As a partner in your health care, we are attempting to contact you because our records indicate that you did not make it to your scheduled appointment, and we would like to re-schedule. Please call us at [phone], extension [phone] to speak to us regarding making an appointment in the [place] [address] clinic. Your good health is important to us. Please contact us as soon as possible to reschedule your appointment so we can keep your current referral, or to let us know the appointment is no longer needed. If we do not hear back from you within two weeks, we will assume the appointment is not needed at this time. IMPORTANT: Due to COVID-19 we have greatly expanded our telehealth options, please contact the clinic to inquire about scheduling. Sincerely, DICKSON CASPER [employer] [facility] ABIEL FINK [facility]
--- OUTSIDE RECORDS SUMMARY | 2024-11-17 03:44 | XMS_ITS | Encounter Summary ---
Author Name [facility] [place] [facility] [facility] [place] Address [address] [place] [address] Care Team Providers Care Cross Tie Tram Loader Name Role Phone MANUEL BAIRD Primary Care [...] PART A Apr 08, 2017 PART A [id number] [phone] ASHLEY WALKER PATIENT Selected Encounter This section includes the information on record at [place] for the Encounter. 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 Date/Time Primary/Secondary Diagnosis Diagnosis Name Provider Source Jun 08, 2024 10:33 AM PRIMARY Type 2 diabetes w diabetic autonomic (poly)neuropathy REED COLLADO [facility] Jun 08, 2024 10:33 AM SECONDARY Essential (primary) hypertension TOBIASREED Nena [facility] Jun 08, 2024 10:33 AM SECONDARY Hyperlipidemia, unspecified TOBIASREED Nena [facility] Plan of Treatment: Future Appointments (+ 6 months) and Future Tests (+/- 45 days) The Plan of Treatment section includes future care activities for the [facility] This section includes future appointments and future orders which are active, pending or scheduled. Future Appointments This section includes appointments that were scheduled to occur 6 months from the date of the Encounter, up to a maximum of 20 appointments. The data comes from all [place] treatment facilities. Appointment Date/Time Appointment Type Appointme nt Facility Name Jun 09, 2024 01:00 PM AMBULATORY - SURGERY [facility] Jun 19, 2024 07:00 AM AMBULATORY - MEDICINE [facility] Jun 19, 2024 08:00 AM AMBULATORY - NONE [facility] Jun 29, 2024 10:15 AM AMBULATORY - MEDICINE [facility] Jun 29, 2024 01:00 PM AMBULATORY - SURGERY [facility] Jul 03, 2024 10:30 AM AMBULATORY - MEDICINE [facility] Jul 14, 2024 12:54 PM AMBULATORY - SURGERY [facility] Jul 20, 2024 10:00 AM AMBULATORY - MEDICINE [facility] Aug 02, 2024 09:45 AM AMBULATORY - MEDICINE [facility] Aug 24, 2024 10:00 AM AMBULATORY - MEDICINE [facility] Aug 24, 2024 10:30 AM AMBULATORY - MEDICINE [facility] Aug 30, 2024 09:30 AM AMBULATORY - MEDICINE [facility] Aug 31, 2024 01:00 PM AMBULATORY - SURGERY [facility] Sep 21, 2024 01:30 PM AMBULATORY - MEDICINE [facility] Sep 22, 2024 11:00 AM AMBULATORY - MEDICINE [facility] Sep 29, 2024 12:30 PM AMBULATORY - MEDICINE [facility] Oct 02, 2024 09:30 AM AMBULATORY - MEDICINE [facility] Nov 20, 2024 10:30 AM AMBULATORY - SURGERY [facility] Nov 21, 2024 10:00 AM AMBULATORY - NONE [facility] Lab Results: +/- 30 days of the encounter This section includes the Chemistry and Hematology Lab Results on record with [place] for the patient. Radiology Reports and Pathology Reports are provided separately, in subsequent sections. Lab Results This section contains the Chemistry/Hematology Results that were resulted 30 days before or 30 daysafter the date of the Encounter. Date/Time Source Result Type Result - Unit Interpretation Reference Range Comment Jun 19, 2024 07:30 AM [facility] PT/INR NEW (L-HI) Specimen Type: PLASMA No comment entered. Ordering Provider: ROSE PITTS Report Released Date/Time: Jun 12, 2024 10:14 AM Reporting Lab: [address] [address] Performing Lab: [address] [address] PROTIME 13.3 s H 9.4-12.5 INR VALUE 1.2 {INR} Jun 19, 2024 07:30 AM [facility] BASIC METABOLIC PANEL Specimen Type: PLASMA Comment: K result may show a positive bias due to hemolysis. Specimen slightly hemolyzed. Ordering Provider: ROSE PITTS Report Released Date/Time: Jun 12, 2024 10:14 AM Reporting Lab: [address] [address] Performing Lab: [address] [address] CREATININE 0.85 mg/dL 0.7-1.3 UREA NITROGEN 11.9 [...] Jun 12, 2024 10:14 AM Reporting Lab: [address] [address] Performing Lab: [address] [address] WBC 5.1 10*3/uL 3.6-11.2 RBC 5.31 10*6/uL [...] Specimen Type: BLOOD Comment: Test Performed by: [id number] Meter #: [id number] Ordering Provider: CARROLL HAGEN Report Released Date/Time: Jun 19, 2024 06:58 PM Reporting Lab: [address] [address] Performing Lab: [place] [phone] GLUCOSE,BLOOD-p oct (STL) 108 mg/dL H 72-99 Jun 09, 2024 11:48 AM [facility] MICRAL/CREAT PROFILE (STL) Specimen Type: URINE No comment entered. Ordering Provider: WELLINGTON SERNA Report Released Date/Time: Jun 07, 2024 01:44 PM Reporting Lab: [place] [address] [facility] [address] Performing Lab: [address] [address] URINE ALBUMIN (PB-STL) 167.5 mg/L uACR (STL) 103 mg/g H 0-29 CREATININE URINE/OTHERS 163.4 mg/dL 63-166 Jun 07, 2024 02:22 PM [facility] hsCRP Specimen Type: SERUM No comment entered. Ordering Provider: WELLINGTON SERNA Report Released Date/Time: Jun 07, 2024 01:42 PM Reporting Lab: [facility] [address] [facility] [address] Performing Lab: [address] [address] hsCRP 4.65 mg/L H 0-3.1 Jun 07, 2024 02:22 PM [facility] BRAIN NATRIURETIC PEPTIDE Specimen Type: PLASMA No comment entered. Ordering Provider: WELLINGTON SERNA Report Released Date/Time: Jun 07, 2024 01:32 PM Reporting Lab: [facility] [address] [facility] [address] Performing Lab: [facility] [address] [facility] [address] BRAIN NATRIURETIC PEPTIDE 198.9 pg/mL H 0-100 Jun 07, 2024 02:22 PM [facility] MAGNESIUM Specimen Type: PLASMA No comment entered. Ordering Provider: WELLINGTON SERNA Report Released Date/Time: Jun 07, 2024 01:44 PM Reporting Lab: [place] [id number] [facility] [address] Performing Lab: [facility] [address] [facility] [address] MAGNESIUM 1.7 mg/dL 1.6-2.6 Jun 05, 2024 09:00 AM [facility] FSH (STL-MA) Specimen Type: SERUM Comment: Test Performed by [place], [employer] [facility], [address] [place] [address] Tommie Garcia M.D., Ph.D., Director of Laboratories , CLIA [id number] Ordering Provider: EMILIA CALHOUN Report Released Date/Time: Jun 05, 2024 08:45 AM Reporting Lab: [place] [id number] [facility] [address] Performing Lab: [address] FSH (L-MA) 5.5 m[IU]/mL 1.4-12.8 Jun 05, 2024 09:00 AM [facility] LUTEINIZING HORMONE Specimen Type: SERUM Comment: Test Performed by [place], [employer] [facility], [address] [place] [address] Tommie Garcia M.D., Ph.D., Director of Laboratories , CLIA [id number] Ordering Provider: EMILIA CALHOUN Report Released Date/Time: Jun 05, 2024 08:45 AM Reporting Lab: [facility] [address] [place] [phone] Performing Lab: [address] LUTEINIZING HORMONE 2.7 m[IU]/mL 1.6-15.2 Jun 05, 2024 09:00 AM [facility] PROLACTIN (STL-Eff 08/15) Specimen Type: PLASMA No comment entered. Ordering Provider: EMILIA CALHOUN Report Released Date/Time: Jun 05, 2024 08:45 AM Reporting Lab: [facility] [address] [facility] [address] Performing Lab: [facility] [address] [place] [phone] PROLACTIN (STL-Eff 08/15) 41.98 ng/mL H 3.5-19.4 Jun 05, 2024 09:00 AM [facility] TSH (MA-PB) Specimen Type: SERUM No comment entered. Ordering Provider: EMILIA CALHOUN Report Released Date/Time: Jun 05, 2024 08:45 AM Reporting Lab: [place] [address] [facility] [address] Performing Lab: [place] [address] [facility] [address] TSH 3.510 u[IU]/mL 0.47-5 Jun 05, 2024 09:00 AM [facility] FREE T4 (MA-PB) Specimen Type: SERUM No comment entered. Ordering Provider: EMILIA CALHOUN Report Released Date/Time: Jun 05, 2024 08:45 AM Reporting Lab: [place] [address] [facility] [address] Performing Lab: [place] [address] [facility] [address] FREE T4 (MA-PB) 0.78 ng/mL 0.7-1.48 May 17, 2024 10:20 AM [facility] JAK2 MUTATION (STL) Specimen Type: PLASMA Comment: A JAK2 [id number] mutation is not detected. No mutation is detected in exon 12 of JAK2. Ordering Provider: JONATHON CHAU Report Released Date/Time: May 17, 2024 09:56 AM Reporting Lab: [facility] [address] [facility] [address] Performing Lab: [facility] [id number] [facility] JAK2 MUTATION (STL) NOT DETECTED NOT DETECTED May 17, 2024 10:20 AM [facility] LDH Specimen Type: PLASMA Comment: No hemolysis noted. Ordering Provider: JONATHON CHAU Report Released Date/Time: May 17, 2024 09:56 AM Reporting Lab: [address] [address] Performing Lab: [address] [address] LDH 272 U/L H 125-243 May 17, 2024 10:20 AM [facility] HAPTOGLOBIN (STL) Specimen Type: PLASMA Comment: No hemolysis noted. Ordering Provider: JONATHON CHAU Report Released Date/Time: May 17, 2024 09:56 AM Reporting Lab: [address] [address] Performing Lab: [address] [address] HAPTOGLOBIN (STL) 94 mg/dL 44-215 May 17, 2024 10:20 AM [facility] GGT GAMMA-GT Specimen Type: PLASMA Comment: No hemolysis noted. Ordering Provider: JONATHON CHAU Report Released Date/Time: May 17, 2024 09:56 AM Reporting Lab: [address] [address] Performing Lab: [address] [address] GGT GAMMA-GT 81 [IU]/L H 12-64 May 17, 2024 10:20 AM [facility] COMPREHENSIVE METABOLIC PANEL Specimen Type: PLASMA Comment: No hemolysis noted. Ordering Provider: JONATHON CHAU Report Released Date/Time: May 17, 2024 09:56 AM Reporting Lab: [address] [address] Performing Lab: [address] [address] CREATININE 1.05 mg/dL 0.7-1.3 UREA NITROGEN 16.4 mg/dL 9.0-25.0 GLUCOSE 100 mg/dL H 72-99 SODIUM 138 meq/L 136-145 POTASSIUM 4.5 meq/L 3.5-5 CHLORIDE 106 meq/L 98-107 CARBON DIOXIDE 21 meq/L L 22-31 CALCIUM 9.9 mg/dL 8.4-10.4 PROTEIN 7.3 g/dL 6-8.6 ALBUMIN 4.0 g/dL 3.4-5 TOTAL BILIRUBIN 0.7 mg/dL 0.2-1.2 ALKALINE PHOSPHATASE 93 U/L 40-150 AST/SGOT 37 U/L H 5-34 ALT/SGPT 36 U/L 8-40 EGFR (CKD-EPI 2020) 75.4 >60 May 17, 2024 10:20 AM [facility] CBC Specimen Type: BLOOD No comment entered. Ordering Provider: JONATHON CHAU Report Released Date/Time: May 17, 2024 09:56 AM Reporting Lab: [facility] [address] [facility] [address] Performing Lab: [place] [address] [facility] [address] WBC 5.0 10*3/uL 3.6-11.2 RBC 5.01 10*6/uL 4.10-5.70 HGB 13.6 g/dL 13.1-16.8 HCT 40.8 38.2-48.4 MCV 81.4 fL 80.0-100.0 MCH 27.1 pg 27.0-34.0 MCHC 33.3 g/dL 33.0-36.0 PLT 103 10*3/uL L 150-400 MPV 9.0 fL 7.5-11.2 RDW 14.2 11.8-15.1 LYMPHOCYTES, AUTO % 27 MONOCYTES, AUTO % 11 NEUTROPHILS, AUTO % 55 EOSINOPHILS, AUTO % 5 BASOPHILS, AUTO % 1 LYMPHOCYTES, ABSOLUTE 1.35 10*3/uL 0.77-4.50 MONOCYTES, ABSOLUTE 0.53 10*3/uL 0.19-0.80 NEUTROPHILS, ABSOLUTE 2.75 10*3/uL 2.10-8.00 EOSINOPHILS, ABSOLUTE 0.26 10*3/uL 0.00-0.60 BASOPHILS, ABSOLUTE 0.07 10*3/uL 0.00-0.20 Social History: Smoking Status (Most current) and Tobacco Use (All prior to encounter date) This section includes the most current, and the historical, smoking and tobacco- related health factors from the [place] facility where the Encounter took place. Current Smoking Status This section includes the most current smoking, or tobacco-related health factor, from the [place] facility where the Encounter took place. Date/Time Current Smoking Status Comment Radhika ity March 16, 2024 09:30 AM VA-TOBACCO FORMER USER [facility] Tobacco Use History This section includes a history of the smoking, or tobacco-related health factors, that were collected on or before the date of the Encounter. The data comes from the [place] facility where the Encounter took place. Date/Time Smoking Status/Tobacco Use Comment F acility March 16, 2024 09:30 AM VA-TOBACCO QUIT 15 YRS OR MORE [facility] March 22, 2023 10:00 AM VA-TOBACCO FORMER USER [facility] March 22, 2023 10:00 AM VA-TOBACCO QUIT 15 YRS OR MORE [facility] Jan 29, 2022 03:00 PM VA-TOBACCO FORMER USER [facility] Jan 29, 2022 03:00 PM VA-TOBACCO QUIT 15 YRS OR MORE [facility] Feb 07, 2019 04:17 PM VA-TOBACCO FORMER USER [facility] Feb 07, 2019 04:17 PM VA-TOBACCO QUIT 15 YRS OR MORE [facility] March 09, 2018 12:36 PM QUIT TOBACCO >7 YEARS AGO [facility] Aug 05, 2017 02:36 PM QUIT TOBACCO >7 YEARS AGO [facility] Advance Directives: All historical and current Section Date Range: From patient's date of to the date document was created. This section includes ALL of a patient's completed or amended [place] Advance and Rescinded Directives. The entries below indicate that a directive exists for the patient, but an actual copy is not included with this document. The data comes from all [facility]. Date Advance Directives Provider Source Jan 19, 2017 ADVANCE DIRECTIVE DISCUSSION ERICK BARDALES [facility] Radiology Reports: +/- 30 days of [...] the Encounter. The data comes from all [place] treatment facilities. Date/Time Radiology Report Provider Source Jun 07, 2024 02:[address] CHEST W/CONTRAS T & 3D: ABIEL WALKER [id number] -1950 M Exm Date: JUN 07, 2024@14:29 Req Phys: JOHANA REDDY Loc: YASH-ONCOLOGY KANDI (Req'g Img Loc: YASH-CT IMAGING YASH Service: Unknown [facility], [address] [place] [address] (Case [id number] COMPLETE) CT THORAX, DIAGNOSTIC, W/CONTRAS(CT Detailed) CPT:88606 Contrast Media : Non-ionic Iodinated Reason for Study: Shortness of breath (Case 3139 COMPLETE) UNLISTED CT PROCEDURE (CT Detailed) CPT:75571 CPT Modifiers : 52 REDUCED SERVICES Clinical History: Responsible Attending: Dr. Orantes Attending Contact Number: [phone] Resident Contact Number: CT chest, high resolution Allergies listed in CPRS chart: TRAMADOL Creatinine: CREATININE 0.87 mg/dL 03/06/2024 09:52 /eGFR: STL EGFR (within one year). CREATININE 0.87 mg/dL (03/06/24 09:52) Wt: 233.1 lb [105.73 kg] (05/17/2024 08:37) History of: Renal failure, chronic or acute renal disease: NO Report Status: Verified Date Reported: JUN 07, 2024 Date Verified: JUN 07, 2024 Vertical Punch Operator E-Sig:/ES/LISHA BRYANT Report: , [id number], [id number] INDICATION: Shortness of breath COMPARISON: None TECHNIQUE: [...] suggested. Primary Interpreting Staff: LISHA BRYANT, RADIOLOGIST (Vertical Punch Operator) /LISHA AVITIA [facility] Jun 07, 2024 02:[address] ABD PEL W/CONT & 3D: ABIEL WALKER [id number] -1950 Exm Date: JUN 07, 2024@14:28 Req Phys: JOHANA REDDY Loc: Y[facility]-ONCOLOGY KANDI (Req'g Im Loc: YASH-CT IMAGING YASH Service: Unknown [facility], [facility] [address] [place] [address] (Case [id number] COMPLETE) CT ABDOMEN AND PELVIS W/CONTRAST (CT Detailed) CPT:09253 Contrast Media : Non-ionic Iodinated Reason for Study: enlarged spleen (Case 3137 COMPLETE) CT 3D RENDERING W INDEPENDENT WOR(CT Detailed) CPT:51516 Clinical History: Responsible Attending: Dr. Orantes Attending Contact Number: [phone] Resident Contact Number: spleenomegally, evaluation for liver, lymphadenopathy Allergies listed in CPRS chart: TRAMADOL Creatinine:CREATININE 0.87 mg/dL 03/06/2024 09:52 /eGFR: STL EGFR (within one year). CREATININE 0.87 mg/dL (03/06/24 09:52) Wt: 233.1 lb [105.73 kg] (05/17/2024 08:37) History of: Renal failure, chronic or acute renal disease: NO Report Status: Verified Date Reported: JUN 07, 2024 Date Verified: JUN 07, 2024 Vertical Punch Operator E-Sig:/ES/LISHA BRYANT Report: , [id number], [id number] INDICATION: Shortness of breath COMPARISON: None TECHNIQUE: [...] suggested. Primary Interpreting Staff: LISHA BRYANT, RADIOLOGIST (Vertical Punch Operator) /LISHA AVITIA [facility] Encounter Notes: All associated encounter notes This section contains the clinical notes associated to the Encounter. Date/Time Encounter Note(s) Provider Source Jun 08, 2024 09:39 AM INTERNAL MEDICINE CLINICAL PHARMACIST MEDICATION MGT NOTE: LOCAL TITLE: CLINICAL PHARMACIST NOTE STL STANDARD TITLE: INTERNAL MEDICINE CLINICAL PHARMACIST MEDICATION DATE OF NOTE: JUN 08, 2024@09:39 ENTRY DATE: JUN 08, 2024@09:39:24 AUTHOR: REED COLLADO EXP COSIGNER: URGENCY: STATUS: COMPLETED CLINICAL PHARMACIST NOTE STL Has ADDENDA CLINICAL PHARMACY FOLLOW-UP Subjective: ABIEL WALKER is a 74 MALE who presents to clinic for follow up on DM. PMH: 1) Asthma (SNOMED CT 837427441) 2) Gastro-esophageal reflux disease (SNOMED CT 059454503) 3) Peptic Ulcer Disease * (ICD-9-CM 533.90) 4) Hypertension (SNOMED CT 88591468) 5) Neoplasm of pituitary gland (SNOMED CT 988330133) 6) Hyperlipidemia (SNOMED CT 52619928) 7) Erectile dysfunction associated with type 2 diabetes mellitus 8) Osteoarthritis of knee 9) Diabetes mellitus with neuropathy 10) Low back pain 11) Obesity 12) Patellofemoral syndrome of right knee 13) History of left total knee replacement 14) History of arthroplasty of right knee 15) Exposure to potentially hazardous substance 16) Fatty liver 17) Heart failure 18) Thrombocytopenia During the last contact with vet, the following changes were made: Per 06/07 cardio appt Bumex .5 mgs ordered for Prn USE.. Pt will not take unless instructed to do so. (pending lab results) coreg 3.15 mgs bid (gdmt 25 mgs bid) will start this med first. Stop the hctz/lisinopril 4 days later start Entresto 24/26 bid Repeat chem in 14 days. Jardiance planned in near future.. cardiac cath requested to assess for coronary blockages. #DMT2: last a1c 7.0 (down from 8.8) cont FU with PCP. #HTN; stated BPs are always elevated.. Pt to record BPs AM and PM during titration of HF meds:. Coreg, entresto.. Goal BP <130/<80 ordered micral/creat. #hyperlipidemia uncontrolled. LDL 117 Goal LDL <70 Atorvastatin increased to 60 mgs daily During current visit: Had a lot of med changes and brought info to go over it today. Readings have been up and down. Dietary/Lifestyle/Social History modifications made: --eats when frustrated and bummed out -snacks on chips and cake or pop tart now and then --eating 2 meals, lunch and dinner --snacking on honeydew and cantaloupe Drinks: Body Armor but now realized it has sugar, now drinking Gatorade zero, water Added salt: only adds to fruit, son say he cooks bland ROS: (+) hypoglycemia symptoms or values <80 mg/dL --likely false as felt OK and readings around WNL, did not do fingerstick to confirm (-) hyperglycemia symptoms (-) CP (+) SOB, constant , sleeps w/ 1-2 pillows Objective: Allergies: TRAMADOL Medications: Active and Recently Outpatient Medications (excluding Supplies): Active Outpatient Medications Status ========= 1) ACCU-CHEK GUIDE (GLUCOSE) TEST STRIP USE 1 STRIP FOR ACTIVE BLOOD TEST TWICE A DAY ALTERNATING TIMES [...] TO RED, ITCHY, OR SORE SKIN. 4) BUMETANIDE 1MG TAB TAKE ONE-HALF TABLET BY MOUTH ONCE ACTIVE A DAY NEEDED PER PROVIDER INSTRUCTIONS has not received 5) CARBOXYMETHYLCELLULOSE NA 0.5% OPH SOLN INSTILL 1 ACTIVE DROP IN BOTH EYES FOUR TIMES A DAY NEEDED FOR DRY EYE(S) 6) CARVEDILOL 6.25MG TAB TAKE ONE-HALF TABLET BY MOUTH ACTIVE TWICE A DAY HEART FAILURE TAKE WITH FOOD. has not started 7) DEXTROSE 24GM/31GM SQUEEZE TUBE TAKE 1 TUBE BY MOUTH ACTIVE NEEDED FOR LOW BLOOD SUGAR REPEAT DOSE IF HYPOGLYCEMIA CONTINUES 15 MINUTES AFTER THE FIRST DOSE. 8) DULOXETINE HCL 60MG EC CAP TAKE ONE CAPSULE BY MOUTH ACTIVE ONCE A DAY FOR NERVE PAIN DO NOT ABRUPTLY DISCONTINUE MEDICATION. 9) INSULIN,ASPART(EQV-NOVLG)100UN/M L FLXPEN INJECT 6 ACTIVE UNITS UNDER THE SKIN BEFORE SUPPER FOR DIABETES ADMINISTER 10 MINUTES BEFORE FOOD DIRECTED. REFRIGERATE UN-OPENED PENS. DISCARD CARTRIDGE 28 DAYS AFTER OPENING. 10) INSULIN,GLARG(TOUJEO MAX) 300 UNT/ML 3ML INJECT 90 ACTIVE UNITS UNDER THE SKIN ONCE A DAY FOR DIABETES ADMINISTER AT SAME TIME EACH DAY DIRECTED. DISCARD ANY OPEN CARTRIDGE AFTER 42 DAYS. *HIGH DOSE INSULIN* 11) MELOXICAM 7.5MG TAB TAKE ONE TABLET BY MOUTH ONCE A ACTIVE DAY NEEDED FOR OSTEOARTHRITIS takes as needed 12) METFORMIN HCL 500MG 24HR SA TAB TAKE TWO TABLETS BY ACTIVE MOUTH TWICE A DAY FOR BLOOD SUGAR CONTROL. TAKE WITH FOOD. AVOID ALCOHOL. DISCONTINUE BEFORE GETTING XRAY DYE. 13) METHOCARBAMOL 500MG TAB TAKE 1 TABLET BY MOUTH TWICE ACTIVE DAILY NEEDED FOR MUSCLE SPASM as needed 14) MULTIVITAMIN CAP/TAB TAKE 1 TABLET BY MOUTH ONCE A ACTIVE DAY FOR NUTRITION/DIETARY SUPPLEMENTATION 15) OMEPRAZOLE 20MG EC CAP TAKE ONE CAPSULE BY MOUTH ACTIVE (S) EVERY MORNING TO LOWER STOMACH ACID. TAKE 30 MINUTES PRIOR TO FOOD. 16) PREGABALIN 200MG ORAL CAP TAKE ONE CAPSULE BY MOUTH ACTIVE TWICE A DAY 17) SACUBITRIL 24MG/VALSARTAN 26MG TAB TAKE 1 TABLET BY ACTIVE MOUTH TWICE A DAY FOR HEART FAILURE has not started yet, will start months after 4 days off ACEI 18) SEMAGLUTIDE 1MG/0.75ML INJ PEN 3ML INJECT 1MG UNDER ACTIVE THE SKIN EVERY WEEK FOR DIABETES Pending Outpatient Medications Status ========= 1) ASPIRIN 81MG EC TAB TAKE ONE TABLET BY MOUTH ONCE A PENDING DAY TAKE WITH FOOD. not started 2) ATORVASTATIN CALCIUM 40MG TAB TAKE ONE AND ONE-HALF PENDING TABLETS BY MOUTH EVERY EVENING still taking 40mg daily, not received Active Non-VA Medications Status ========= 1) Non-VA NAPROXEN NA 220MG TAB 220MG BY MOUTH ACTIVE NEEDED OTC/Non-VA meds: as above Medication reconciliation completed: YES Adherence to above medications: meds in the process of being adjusted Labs: CMP: SODIUM 138 mEq/L 05/17/2024 10:20 POTASSIUM 4.5 mEq/L 05/17/2024 10:20 CHLORIDE 106 mEq/L 05/17/2024 10:20 UREA NITROGEN 16.4 mg/dL 05/17/2024 10:20 CREATININE 1.05 mg/dL 05/17/2024 10:20 CALCIUM 9.9 mg/dL 05/17/2024 10:20 PROTEIN 7.3 g/dL 05/17/2024 10:20 ALBUMIN 4.0 g/dL 05/17/2024 10:20 ALKALINE PHOSPHATASE 93 U/L 05/17/2024 10:20 ALT/SGPT 36 U/L 05/17/2024 10:20 AST/SGOT 37 H U/L 05/17/2024 10:20 TOTAL BILIRUBIN 0.7 mg/dL 05/17/2024 10:20 CARBON DIOXIDE 21 L mEq/L 05/17/2024 10:20 GLUCOSE 100 H mg/dL 05/17/2024 10:20 EGFR (CKD-EPI 2020) 75.4 05/17/2024 10:20 Estimated CrCl mL/min FLP: TRIGLYCERIDE 145 mg/dL 04/07/2024 11:40 CHOLESTEROL 180 mg/dL 04/07/2024 11:40 HDL(New) 34 L mg/dL 04/07/2024 11:40 CALCULATED LDL 117 mg/dL 04/07/2024 11:40 LDL (direct): ____ CPK: ____ ASCVD 10 YEAR RISK ASSESSMENT: % MICRAL/CR PROFILE: CREATuF: 193.6 (03/06/24 10:03) M/CREAT: 59 (03/06/24 10:03) MICRAL: 114.8 (03/06/24 10:03) A1c: HGA1C 7.0 H % 03/06/2024 09:52 TSH: TSH 3.510 uIU/mL 06/05/2024 09:00 Vitamin D: No VITAMIN D 25 HYDROXY EO data found Name: Abiel Walker Date of : 1950 Report Period: 05/26/2024 - 06/08/2024 (14 days) Generated: 06/08/2024 % Time CGM Active: 96% Glucose Statistics and Targets Average Glucose: 157 mg/dL Glucose Management Indicator (GMI): 7.1% Glucose Variability (%CV): 26.8% Target Range: 70 - 180 mg/dL Time in Ranges Very High: >250 mg/dL --- 2% High: 181 - 250 mg/dL --- 27% Target Range: 70 - 180 mg/dL --- 71% Low: 54 - 69 mg/dL --- 0% Very Low: <54 mg/dL --- 0% Significant patterns: high w/ lows, afternoon low glucose events total 0 12am-6am 6am-12pm 12pm-6pm 6pm-12am GOALS Time in Range: Type 2 DM most people Above 250 mg/dL: <5% Above 180 mg/dL: <25% In Target Range (70-180 mg/dL): >70% Below 70 mg/dL: <4% Below 54 mg/dL: <1% %CV <=36% Time in Range: HIgh risk and OLDer Above 250 mg/dL: <10% Above 180 mg/dL: <50% In Target Range (70-180 mg/dL): >50% Below 70 mg/dL: <1% Below 54 mg/dL: NONE %CV <=36% BP last visit:147/70 (06/07/2024 11:56) Pulse last visit: 61 (06/07/2024 11:53) Manual BP seated, rested: 160/54 mmHg Pulse: 56 bpm Assessment/Plan: 1) Diabetes Goal A1c <7-8%, FBG 80-130, post-prandial BG <180, per VA/DoD guidelines --Controlled per recent A1c. Pretty shows average glucose and TIR at goals. A few lows, but possible error as other readings WNL, reminded to do fingerstick when lows. Tolerating meds. Highs generally due to diet, rec make changes based on this, just less carbs. --Continue metformin SA 500mg 2 tabs BID , GFR >60 --Continue semaglutide 1mg once a week. --Continue Toujeo 300 units/ml 90 units daily --Continue aspart 6 units before dinner. --Avoiding SGLT2 due to h/o genital fungal infections, not states this was not a rash and it was shingles, will defer to cardio at this point. --Instructed vet to check SMBGs using pretty --Educated vet on hypoglycemia symptoms and appropriate treatment and when to call clinic or go to emergency room. Call for lows <70. DM Health maintenance (+)ASA (+)MELONIE/ARB (+)Statin ()Podiatry (+)Optho May 2024 Diabetes without retinopathy, OU - Hx of Mild NPDR OS - No DME/CSME on clinical examination 2) Lipids - Goal is treatment with moderate-intensity statin per VADoD guidelines; moderate to high-intensity statin per ACC/AHA guidelines., --CCT, cardio increased atorva to 60mg daily 3) HTN/CHF - <130/80 mmHg per 2017 AHA guidelines; <140/90 >60 + DM per VADoD guidelines. --Uncontrolled on check, meds being changed per cardio due to new dx HF. --Reviewed medicating changes. --Reviewed to limit salt, handouts given. --Rec daily AM weights, rec home BP and reviewed technique. Document ad bring to appts. --Labs 2 weeks after med changes - Instructed vet to call CP if SBP >160 sustained or DBP >100 sustained; Instructed vet to present to ER if SBP >180 sustained or DBP >120 sustained and/or if symptoms present (chest pain, headache, vision changes, numbness, etc.) -Educated vet on risks/benefits of new medication, new labs. -Education provided on nonpharmacologic ways to improve DM/HLD/HTN (including lifestyle management/dietary/physical activity) specific for the vet's needs. -[place] verbalized understanding to all plans discussed today. Questions were answered to vet's satisfaction. 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) PBM PharmD Pharmacotherapy Rem V12: PHARMACIST INTERVENTIONS: HYPERTENSION Medication monitoring, no dosage change required, continue to monitor and assess LIPID MANAGEMENT Medication monitoring, no dosage change required, continue to monitor and assess TYPE 2 DIABETES MELLITUS Medication monitoring, no dosage change required, continue to monitor and assess Medication monitoring or diagnostic evaluation (e.g., other labs, EKG) Medication reconciliation (changes to active VA and non-VA medication lists to reconcile differences) No changes to medication lists made (medication review completed, no discrepancies identified) /camyrn COLLADO PHARM.D., [facility] CLINICAL PHARMACIST Signed: 06/08/2024 10:35 07/06/2024 ADDENDUM STATUS: COMPLETED Asks about replacing sensor after surgery. Advised to wait until after surgery to replace, once home. /camryn COLLADO PHARMIsaura, [facility] CLINICAL PHARMACIST Signed: 07/06/2024 16:29 REED COLLADO [facility]
--- OUTSIDE RECORDS SUMMARY | 2024-11-17 03:44 | XMS_ITS | Encounter Summary ---
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 Date/Time Encounter Type Encounter Description Reason Pro vider Source Jun 12, 2024 10:14 AM Outpatient Encounter PRE-SURG EVAL IHE Encounter Template Text not used by [...] 20 appointments. The data comes from all [place] treatment facilities. Appointment Date/Time Appointment Type Appointme nt Facility Name Jun 19, 2024 07:00 AM AMBULATORY - MEDICINE [facility] Jun 19, 2024 08:00 AM AMBULATORY - NONE [facility] Jun 29, 2024 10:15 AM AMBULATORY - MEDICINE [facility] Jun 29, 2024 01:00 PM AMBULATORY - SURGERY [facility] Jul 03, 2024 10:30 AM AMBULATORY - MEDICINE [facility] Jul 14, 2024 12:54 PM AMBULATORY - SURGERY [facility] Jul 20, 2024 10:00 AM AMBULATORY - MEDICINE [facility] Aug 02, 2024 09:45 AM AMBULATORY - MEDICINE [facility] Aug 24, 2024 10:00 AM AMBULATORY - MEDICINE [facility] Aug 24, 2024 10:30 AM AMBULATORY - MEDICINE [facility] Aug 30, 2024 09:30 AM AMBULATORY - MEDICINE [facility] Aug 31, 2024 01:00 PM AMBULATORY - SURGERY [facility] Sep 21, 2024 01:30 PM AMBULATORY - MEDICINE [facility] Sep 22, 2024 11:00 AM AMBULATORY - MEDICINE [facility] Sep 29, 2024 12:30 PM AMBULATORY - MEDICINE [facility] Oct 02, 2024 09:30 AM AMBULATORY - MEDICINE [facility] Nov 20, 2024 10:30 AM AMBULATORY - SURGERY [facility] Nov 21, 2024 10:00 AM AMBULATORY - NONE [facility] Dec 11, 2024 10:30 AM AMBULATORY - MEDICINE [facility] Lab Results: +/- 30 days of the encounter This section includes the Chemistry and Hematology Lab Results on record with VA for the patient. Radiology Reports and Pathology Reports are provided separately, in subsequent sections. Lab Results This section contains the Chemistry/Hematology Results that were resulted 30 days before or 30 daysafter the date of the Encounter. Date/Time Source Result Type Result - Unit Interpretation Reference Range Comment Jun 19, 2024 07:30 AM [facility] PT/INR [facility] ([facility]) Specimen Type: PLASMA No comment entered. Ordering Provider: ROSE PITTS Report Released Date/Time: Jun 12, 2024 10:14 AM Reporting Lab: [address] [address] Performing Lab: [address] [address] PROTIME 13.3 s H 9.4-12.5 INR VALUE 1.2 {INR} Jun 19, 2024 07:30 AM [facility] BASIC METABOLIC PANEL Specimen Type: PLASMA Comment: K result may show a positive bias due to hemolysis. Specimen slightly hemolyzed. Ordering Provider: ROSE PITTS Report Released Date/Time: Jun 12, 2024 10:14 AM Reporting Lab: [address] [address] Performing Lab: [address] [address] CREATININE 0.85 mg/dL 0.7-1.3 UREA NITROGEN 11.9 mg/dL 9.0-25.0 GLUCOSE 106 mg/dL H 72-99 SODIUM 141 meq/L 136-145 POTASSIUM 4.4 meq/L 3.5-5 CHLORIDE 110 meq/L H 98-107 CARBON DIOXIDE 22 meq/L 22-31 CALCIUM 9.9 mg/dL 8.4-10.4 EGFR (CKD-EPI 2020) 92.3 >60 Jun 19, 2024 07:30 AM [facility] CBC Specimen Type: BLOOD No comment entered. Ordering Provider: ROSE PITTS Report Released Date/Time: Jun 12, 2024 10:14 AM Reporting Lab: [facility] [address] [place] [address] Performing Lab: [address] [address] WBC 5.1 10*3/uL 3.6-11.2 RBC 5.31 10*6/uL [...] 2.3 1.0-7.0 Jun 19, 2024 07:29 AM [facility] GLUCOSE,BLOOD-poct (STL) Specimen Type: BLOOD Comment: Test Performed by: [id number] Meter #: [id number] Ordering Provider: CARROLL HAGEN Report Released Date/Time: Jun 19, 2024 06:58 PM Reporting Lab: [address] [address] Performing Lab: [address] [address] GLUCOSE,BLOOD-p oct (STL) 108 mg/dL H 72-99 Jun 09, 2024 11:48 AM [facility] MICRAL/CREAT PROFILE (STL) Specimen Type: URINE No comment entered. Ordering Provider: WELLINGTON SERNA Report Released Date/Time: Jun 07, 2024 01:44 PM Reporting Lab: [address] [address] Performing Lab: [address] [address] URINE ALBUMIN (PB-STL) 167.5 mg/L uACR (STL) 103 mg/g H 0-29 CREATININE URINE/OTHERS 163.4 mg/dL 63-166 Jun 07, 2024 02:22 PM [facility] hsCRP Specimen Type: SERUM No comment entered. Ordering Provider: WELLINGTON SERNA Report Released Date/Time: Jun 07, 2024 01:42 PM Reporting Lab: [address] [address] Performing Lab: [address] [address] hsCRP 4.65 mg/L H 0-3.1 Jun 07, 2024 02:22 PM [facility] BRAIN NATRIURETIC PEPTIDE Specimen Type: PLASMA No comment entered. Ordering Provider: WELLINGTON SERNA Report Released Date/Time: Jun 07, 2024 01:32 PM Reporting Lab: [address] [address] Performing Lab: [address] [address] BRAIN NATRIURETIC PEPTIDE 198.9 pg/mL H 0-100 Jun 07, 2024 02:22 PM [facility] MAGNESIUM Specimen Type: PLASMA No comment entered. Ordering Provider: WELLINGTON SERNA Report Released Date/Time: Jun 07, 2024 01:44 PM Reporting Lab: [address] [address] Performing Lab: [address] [address] MAGNESIUM 1.7 mg/dL 1.6-2.6 Jun 05, 2024 09:00 AM [facility] FSH (STL-MA) Specimen Type: SERUM Comment: Test Performed by Sander Thornton, [facility], [address] [place] [address] Tommie Garcia M.D., Ph.D., Director of Laboratories , CLIA [id number] Ordering Provider: EMILIA CALHOUN Report Released Date/Time: Jun 05, 2024 08:45 AM Reporting Lab: [facility] [address] [facility] [address] Performing Lab: [address] FSH (STL-MA) 5.5 m[IU]/mL 1.4-12.8 Jun 05, 2024 09:00 AM [facility] LUTEINIZING HORMONE Specimen Type: SERUM Comment: [facility] Per[facility] by [facility], [facility], [address] [place] [address] Tommie Garcia M.D., Ph.D., Director of Laboratories , CLIA [id number] Ordering Provider: EMILIA CALHOUN Report Released Date/Time: Jun 05, 2024 08:45 AM Reporting Lab: [facility] [address] [facility] [address] Performing Lab: [address] LUTEINIZING HORMONE 2.7 m[IU]/mL 1.6-15.2 Jun 05, 2024 09:00 AM [facility] PROLACTIN (STL-Eff 08/15) Specimen Type: PLASMA No comment entered. Ordering Provider: EMILIA CALHOUN Report Released Date/Time: Jun 05, 2024 08:45 AM Reporting Lab: [facility] [address] Performing Lab: [place] [address] [facility] [address] PROLACTIN (STL-Eff 08/15) 41.98 ng/mL H 3.5-19.4 Jun 05, 2024 09:00 AM [facility] TSH (MA-PB) Specimen Type: SERUM No comment entered. Ordering Provider: EMILIA CALHOUN Report Released Date/Time: Jun 05, 2024 08:45 AM Reporting Lab: [facility] [address] [facility] [address] Performing Lab: [facility] [address] [facility] [address] TSH 3.510 u[IU]/mL 0.47-5 Jun 05, 2024 09:00 AM [facility] FREE T4 (MA-PB) Specimen Type: SERUM No comment entered. Ordering Provider: EMILIA CALHOUN Report Released Date/Time: Jun 05, 2024 08:45 AM Reporting Lab: [place] [address] [facility] [address] Performing Lab: [place] [address] FREE T4 (MA-PB) 0.78 ng/mL 0.7-1.48 May 17, 2024 10:20 AM [facility] JAK2 MUTATION (STL) Specimen Type: PLASMA Comment: A JAK2 V617F mutation is not detected. No mutation is detected in exon 12 of JAK2. Ordering Provider: JONATHON CHAU Report Released Date/Time: May 17, 2024 09:56 AM Reporting Lab: [address] [address] Performing Lab: [facility] [id number] [place] [address] JAK2 MUTATION (STL) NOT DETECTED NOT DETECTED May 17, 2024 10:20 AM [facility] LDH Specimen Type: PLASMA Comment: No hemolysis noted. Ordering Provider: JONATHON CHAU Report Released Date/Time: May 17, 2024 09:56 AM Reporting Lab: [address] [address] Performing Lab: [address] [address] LDH 272 U/L H 125-243 May 17, 2024 10:20 AM [facility] HAPTOGLOBIN (STL) Specimen Type: PLASMA Comment: No hemolysis noted. Ordering Provider: JONATHON CHAU Report Released Date/Time: May 17, 2024 09:56 AM Reporting Lab: [address] [address] Performing Lab: [address] [address] HAPTOGLOBIN (STL) 94 mg/dL 44-215 May 17, 2024 10:20 AM [facility] GGT GAMMA-GT Specimen Type: PLASMA Comment: No hemolysis noted. Ordering Provider: JONATHON CHAU Report Released Date/Time: May 17, 2024 09:56 AM Reporting Lab: [address] [address] Performing Lab: [address] [address] GGT GAMMA-GT 81 [IU]/L H 12-64 May 17, 2024 10:20 AM [facility] COMPREHENSIVE METABOLIC PANEL Specimen Type: PLASMA Comment: No hemolysis noted. Ordering Provider: JONATHON CHAU Report Released Date/Time: May 17, 2024 09:56 AM Reporting Lab: [address] [address] Performing Lab: [address] [address] CREATININE 1.05 mg/dL 0.7-1.3 UREA NITROGEN 16.4 [...] 75.4 >60 May 17, 2024 10:20 AM [facility] CBC Specimen Type: BLOOD No comment entered. Ordering Provider: JONATHON CHAU Report Released Date/Time: May 17, 2024 09:56 AM Reporting Lab: [facility] [address] [facility] [address] Performing Lab: [facility] [address] [facility] [address] WBC 5.0 10*3/uL 3.6-11.2 RBC 5.01 10*6/uL [...] and tobacco- related health factors from the [place] facility where the Encounter took place. Current Smoking Status This section includes the most current smoking, or tobacco-related health factor, from the [place] facility where the Encounter took place. Date/Time Current Smoking Status Comment Facil ity Aug 11, 2016 10:34 AM QUIT TOBACCO >7 YEARS AGO [facility] Tobacco Use History This section includes a history of the smoking, or tobacco-related health factors, that were collected on or before the date of the Encounter. The data comes from the [place] facility where the Encounter took place. Date/Time Smoking Status/Tobacco Use Comment F acility Sep 30, 2015 10:12 AM QUIT TOBACCO >7 YEARS AGO [facility] Oct 29, 2014 10:23 AM QUIT TOBACCO >7 YEARS AGO [facility] Dec 27, 2013 01:27 PM QUIT TOBACCO >7 YEARS AGO [facility] Feb 24, 2013 02:01 PM LIFETIME NON-USER OF TOBACCO [facility] Feb 11, 2009 10:09 AM QUIT TOBACCO >7 YEARS AGO [facility] Oct 06, 2006 09:30 AM CURRENT NON-TOBACC O USER-HX OF USE [facility] Oct 06, 2006 09:30 AM TOBACCO TERMINATION STAGE [facility] Advance Directives: All historical and current Section Date Range: From patient's date of to the date document was created. This section includes ALL of a patient's completed or amended [place] Advance and Rescinded Directives. The entries below indicate that a directive exists for the patient, but an actual copy is not included with this document. The data comes from all [facility]. Date Advance Directives Provider Source Jan 19, 2017 ADVANCE DIRECTIVE DISCUSSION ERICK BARDALES [facility] Radiology Reports: +/- 30 days of the [...] the Encounter. The data comes from all [place] treatment facilities. Date/Time Radiology Report Provider Source Jun 07, 2024 02:[address] CHEST W/CONTRAS T & 3D: DENISECHET DUSTIN [id number] -[id number] M Exm Date: JUN 07, 2024@14:29 Req Phys: JOHANA REDDY Loc: [facility]-ONCOLOGY KANDI (Req'g Img Loc: YASH-CT IMAGING Y[facility] Service: [facility], [facility] [address] [place] [address] (Case [id number] COMPLETE) CT THORAX, DIAGNOSTIC, W/CONTRAS(CT Detailed) CPT:48167 Contrast Media : Non-ionic Iodinated Reason for Study: Shortness of breath (Case [id number] COMPLETE) UNLISTED CT PROCEDURE (CT Detailed) CPT:47141 CPT Modifiers : 52 REDUCED SERVICES Clinical History: Responsible Attending: Dr. Orantes Attending Contact Number: [id number] Resident Contact Number: CT chest, high resolution Allergies listed in CPRS chart: TRAMADOL Creatinine: CREATININE 0.87 mg/dL 03/06/2024 09:52 /eGFR: STL EGFR (within one year). CREATININE 0.87 mg/dL (03/06/24 09:52) Wt: 233.1 lb [105.73 kg] (05/17/2024 08:37) History of: Renal failure, chronic or acute renal disease: NO Report Status: Verified Date Reported: JUN 07, 2024 Date Verified: JUN 07, 2024 Addictions Recovery Specialist E-Sig:/ES/LISHA BRYANT Report: , [id number], [id number] INDICATION: Shortness of breath COMPARISON: None TECHNIQUE: [...] suggested. Primary Interpreting Staff: LISHA BRYANT, RADIOLOGIST (Addictions Recovery Specialist) /LISHA AVITIA [facility] Jun 07, 2024 02:[address] ABD PEL W/CONT & 3D: CHET WALKER [id number] -1950 M Exm Date: JUN 07, 2024@14:28 Req Phys: JOHANA REDDY Loc: [facility]-ONCOLOGY KANDI (Req'g Img Loc: YASH-CT IMAGING YASH Service: Unknown [facility], [facility] [address] [place] [address] (Case [id number] COMPLETE) CT ABDOMEN AND PELVIS W/CONTRAST (CT Detailed) CPT:36651 Contrast Media : Non-ionic Iodinated Reason for Study: enlarged spleen (Case 3137 COMPLETE) CT 3D RENDERING W INDEPENDENT WOR(CT Detailed) CPT:29993 Clinical History: Responsible Attending: Dr. Orantes Attending Contact Number: [id number] Resident Contact Number: spleenomegally, evaluation for liver, lymphadenopathy Allergies listed in CPRS chart: TRAMADOL Creatinine:CREATININE 0.87 mg/dL 03/06/2024 09:52 /eGFR: STL EGFR (within one year). CREATININE 0.87 mg/dL (03/06/24 09:52) Wt: 233.1 lb [105.73 kg] (05/17/2024 08:37) History of: Renal failure, chronic or acute renal disease: NO Report Status: Verified Date Reported: JUN 07, 2024 Date Verified: JUN 07, 2024 Addictions Recovery Specialist E-Sig:/ES/LISHA BRYANT Report: , [id number], [id number] INDICATION: Shortness of breath COMPARISON: None TECHNIQUE: [...] suggested. Primary Interpreting Staff: LISHA BRYANT, RADIOLOGIST (Addictions Recovery Specialist) /LISHA AVITIA [facility] Encounter Notes: All associated encounter notes This section contains the clinical notes associated to the Encounter. Date/Time Encounter Note(s) Provider Source Jun 20, 2024 11:23 AM CARDIOLOGY DIAGNOS TIC STUDY CONSULT: LOCAL TITLE: EKG CONSULT STL STANDARD TITLE: CARDIOLOGY DIAGNOSTIC STUDY CONSULT DATE OF NOTE: JUN 20, 2024@11:23 ENTRY DATE: JUN 20, 2024@11:23 AUTHOR: CLINICAL,DEVICE PRO EXP COSIGNER: URGENCY: STATUS: COMPLETED DOCUMENT IN [facility]ISTA IMAGING SEE FULL REPORT IN [facility]ISTA IMAGING SIGNATURE NOT REQUIRED SEE SIGNATURE IN [facility]ISTA IMAGING ([place] EKG) AUTO-INSTRUMENT DIAGNOSIS Procedure: [id number] 12 Lead ECG Release Status: Released Off-Line Verified Date Verified: Jun 20, 2024@11:22:57 57122.2 Ventricular Rate: 47 BPM 25759.3 Atrial Rate: 61 BPM 61513.5 QRS Duration: 146 ms 71890.6 Q-T Interval: 456 ms 61709 QTC Calculation(Bazett)403 ms 20607.12 Calculated P [place]: 64 degrees 31431.13 Calculated R [place]: -45 degrees 11656.14 Calculated T [place]: 9 degrees Sinus rhythm with 2nd degree A-V block (Mobitz I) with occasional Premature ventricular complexes Right bundle branch block Left anterior fascicular block Bifascicular block Abnormal ECG When compared with ECG of 01-MAY-2021 12:55, Premature ventricular complexes are now Present Sinus rhythm is now with 2nd degree A-V block (Mobitz I) Vent. rate has decreased BY 39 BPM Administrative Closure: 06/20/2024 by: CLINICAL,DEVICE PROXY SERVICE CLINICAL,DEVICE PROXY SERVICE [facility]
--- OUTSIDE RECORDS SUMMARY | 2024-11-17 03:44 | XMS_ITS | Encounter Summary ---
Author Name [facility] [place] Address [address] [place] [address] Care Team Providers Care Relay Adjuster Name Role Phone MANUEL BAIRD Primary Care [...] PART A Apr 08, 2017 PART A [id number] [phone] ASHLEY WALKER PATIENT Selected Encounter This section includes the information on record at [place] for the Encounter. Date/Time Encounter Type Encounter Description Reason Provider Source Jun 07, 2024 12:30 PM OFF/OP CONSLTJ NEW/EST HI 55 CARDIOLOGY ICD-10-CM I50.9 Heart failure, unspecified WELLINGTON SON IHNav Encounter Template Text not used by [facility] Assessments - Encounter Diagnoses This section includes the primary and secondary diagnoses documented for the Encounter. Date/Time Primary/Secondary Diagnosis Diagnosis Name Provider Source Jun 07, 2024 02:23 PM PRIMARY Heart failure, unspecified WELLINGTON SON A [facility] Jun 07, 2024 02:23 PM SECONDARY Essential (primary) hypertension [place] SON [facility] Jun 07, 2024 02:23 PM SECONDARY Hyperlipidemia, unspecified [place] SON [facility] Jun 07, 2024 02:23 PM SECONDARY Thrombocytopenia, unspecified [place]LL[place] SON [facility] Jun 07, 2024 02:23 PM SECONDARY Type 2 diabetes w diabetic autonomic (poly)neuropathy WELLINGTON SON [facility] Plan of Treatment: Future Appointments (+ 6 months) and Future Tests (+/- 45 days) The Plan of Treatment section includes future care activities for the patient from all [place] [facility]. This section includes future appointments and future orders which are active, pending or scheduled. Future Appointments This section includes appointments that were scheduled to occur 6 months from the date of the Encounter, up to a maximum of 20 appointments. The data comes from all [facility]. Appointment Date/Time Appointment Type Appointme nt Facility Name Jun 08, 2024 10:00 AM AMBULATORY - MEDICINE [facility] Jun 09, 2024 01:00 PM AMBULATORY - SURGERY [facility] Jun 19, 2024 07:00 AM AMBULATORY - MEDICINE [facility] Jun 19, 2024 08:00 AM AMBULATORY - NONE [facility] Jun 29, 2024 10:15 AM AMBULATORY - MEDICINE [facility] Jun 29, 2024 01:00 PM AMBULATORY - SURGERY [facility] Jul 03, 2024 10:30 AM AMBULATORY - MEDICINE [facility] Jul 14, 2024 12:54 PM AMBULATORY - SURGERY [facility] Jul 20, 2024 10:00 AM AMBULATORY - MEDICINE [facility] Aug 02, 2024 09:45 AM AMBULATORY - MEDICINE [facility] Aug 24, 2024 10:00 AM AMBULATORY - MEDICINE [facility] Aug 24, 2024 10:30 AM AMBULATORY - MEDICINE [facility] Aug 30, 2024 09:30 AM AMBULATORY - MEDICINE [facility] Aug 31, 2024 01:00 PM AMBULATORY - SURGERY [facility] Jul[facility] Sep 21, 2024 01:30 PM AMBULATORY - MEDICINE [facility] Sep 22, 2024 11:00 AM AMBULATORY - MEDICINE [facility] Sep 29, 2024 12:30 PM AMBULATORY - MEDICINE [facility] Oct 02, 2024 09:30 AM AMBULATORY - MEDICINE [facility] Nov 20, 2024 10:30 AM AMBULATORY - SURGERY . Julián LILLY [facility] Nov 21, 2024 10:00 AM AMBULATORY - NONE [facility] LESIA Hirsch [facility] Lab Results: +/- 30 days of the [...] Range Comment Jun 19, 2024 07:30 AM [facility] PT/INR NEW ([facility]) Specimen Type: PLASMA No comment entered. Ordering Provider: ROSE PITTS Report Released Date/Time: Jun 12, 2024 10:14 AM Reporting Lab: [facility] [address] [facility] [address] Performing Lab: [facility] [address] [place] [address] PROTIME 13.3 s H 9.4-12.5 INR VALUE 1.2 {INR} Jun 19, 2024 07:30 AM [facility] BASIC METABOLIC PANEL Specimen Type: PLASMA Comment: K result may show a positive bias due to hemolysis. Specimen slightly hemolyzed. Ordering Provider: ROSE PITTS Report Released Date/Time: Jun 12, 2024 10:14 AM Reporting Lab: [facility] [address] [place] [address] Performing Lab: [facility] [address] [place] [address] CREATININE 0.85 mg/dL 0.7-1.3 UREA NITROGEN 11.9 mg/dL 9.0-25.0 GLUCOSE 106 mg/dL H 72-99 SODIUM 141 meq/L 136-145 POTASSIUM 4.4 meq/L 3.5-5 CHLORIDE 110 meq/L H 98-107 CARBON DIOXIDE 22 meq/L 22-31 CALCIUM 9.9 mg/dL 8.4-10.4 EGFR (CKD-EPI 2020) 92.3 >60 Jun 19, 2024 07:30 AM [facility] CBC Specimen Type: BLOOD No comment entered. Ordering Provider: ROSE PITTS AEJulián Report Released Date/Time: Jun 12, 2024 10:14 AM Reporting Lab: [facility] [address] [facility] [address] Performing Lab: [facility] [address] [facility] [address] WBC 5.1 10*3/uL 3.6-11.2 RBC 5.31 10*6/uL [...] 2.3 1.0-7.0 Jun 19, 2024 07:29 AM [facility] GLUCOSE,BLOOD-poct (STL) Specimen Type: BLOOD Comment: Test Performed by: [id number] Meter #: [id number] Ordering Provider: CARROLL HAGEN Report Released Date/Time: Jun 19, 2024 06:58 PM Reporting Lab: [place] [address] [facility] [address] Performing Lab: [address] [address] GLUCOSE,BLOOD-p oct (STL) 108 mg/dL H 72-99 Jun 09, 2024 11:48 AM [facility] MICRAL/CREAT PROFILE (STL) Specimen Type: URINE No comment entered. Ordering Provider: WELL[place] SON Report Released Date/Time: Jun 07, 2024 01:44 PM Reporting Lab: [place] [address] [facility] [address] Performing Lab: [address] [address] URINE ALBUMIN (PB-STL) 167.5 mg/L uACR (STL) 103 mg/g H 0-29 CREATININE URINE/OTHERS 163.4 mg/dL 63-166 Jun 07, 2024 02:22 PM [facility] BRAIN NATRIURETIC PEPTIDE Specimen Type: PLASMA No comment entered. Ordering Provider: WELL[place] SON Report Released Date/Time: Jun 07, 2024 01:32 PM Reporting Lab: [address] [address] Performing Lab: [address] [address] BRAIN NATRIURETIC PEPTIDE 198.9 pg/mL H 0-100 Jun 07, 2024 02:22 PM [facility] hsCRP Specimen Type: SERUM No comment entered. Ordering Provider: WELL[place] SON Report Released Date/Time: Jun 07, 2024 01:42 PM Reporting Lab: [address] [address] Performing Lab: [address] [address] hsCRP 4.65 mg/L H 0-3.1 Jun 07, 2024 02:22 PM [facility] MAGNESIUM Specimen Type: PLASMA No comment entered. Ordering Provider: WELLINGTON SON Report Released Date/Time: Jun 07, 2024 01:44 PM Reporting Lab: [address] [address] Performing Lab: [place] [address] MAGNESIUM 1.7 mg/dL 1.6-2.6 Jun 05, 2024 09:00 AM [facility] FSH (STL-MA) Specimen Type: SERUM Comment: Test Performed by [employer], [email or web address] [facility], [address] [place] [address] Tommie Garcia M.D., Ph.D., Director of Laboratories , CLIA [id number] Ordering Provider: EMILIA CALHOUN Report Released Date/Time: Jun 05, 2024 08:45 AM Reporting Lab: [address] [address] Performing Lab: [address] FSH (STL-MA) 5.5 m[IU]/mL 1.4-12.8 Jun 05, 2024 09:00 AM [facility] LUTEINIZING HORMONE Specimen Type: SERUM Comment: Test Performed by [employer], [email or web address] [facility] [place], [address] [place] [address] Tommie Garcia M.D., Ph.D., Director of Laboratories , CLIA [id number] Ordering Provider: EMILIA CALHOUN Report Released Date/Time: Jun 05, 2024 08:45 AM Reporting Lab: [address] [address] Performing Lab: [address] [place] LUTEINIZING HORMONE 2.7 m[IU]/mL 1.6-15.2 Jun 05, 2024 09:00 AM [facility] PROLACTIN (L-Eff 08/15) Specimen Type: PLASMA No comment entered. Ordering Provider: EMILIA CALHOUN Report Released Date/Time: Jun 05, 2024 08:45 AM Reporting Lab: [facility] [address] [facility] [address] Performing Lab: [place] [address] [facility] [address] PROLACTIN (STL-Eff 08/15) 41.98 ng/mL H 3.5-19.4 Jun 05, 2024 09:00 AM [facility] TSH (MA-PB) Specimen Type: SERUM No comment entered. Ordering Provider: EMILIA CALHOUN Report Released Date/Time: Jun 05, 2024 08:45 AM Reporting Lab: [facility] [address] [facility] [address] Performing Lab: [facility] [address] [facility] [address] TSH 3.510 u[IU]/mL 0.47-5 Jun 05, 2024 09:00 AM [facility] FREE T4 (MA-PB) Specimen Type: SERUM No comment entered. Ordering Provider: EMILIA CALHOUN Report Released Date/Time: Jun 05, 2024 08:45 AM Reporting Lab: [facility] [address] [facility] [address] Performing Lab: [facility] [address] [facility] [address] FREE T4 (MA-PB) 0.78 ng/mL 0.7-1.48 May 17, 2024 10:20 AM [facility] JAK2 MUTATION (STL) Specimen Type: PLASMA Comment: A JAK2 [id number] mutation is not detected. No mutation is detected in exon 12 of JAK2. Ordering Provider: JONATHON CHAU Report Released Date/Time: May 17, 2024 09:56 AM Reporting Lab: [facility] [address] [facility] [address] Performing Lab: [facility] [address] [facility] JAK2 MUTATION (STL) NOT DETECTED NOT DETECTED May 17, 2024 10:20 AM [facility] LDH Specimen Type: PLASMA Comment: No hemolysis noted. Ordering Provider: JONATHON CHAU Report Released Date/Time: May 17, 2024 09:56 AM Reporting Lab: [facility] [address] [facility] [address] Performing Lab: [facility] [address] [facility] [address] LDH 272 U/L H 125-243 May 17, 2024 10:20 AM [facility] HAPTOGLOBIN (STL) Specimen Type: PLASMA Comment: No hemolysis noted. Ordering Provider: JONATHON CHAU Report Released Date/Time: May 17, 2024 09:56 AM Reporting Lab: [facility] [address] [facility] [address] Performing Lab: [facility] [address] [facility] [address] HAPTOGLOBIN (STL) 94 mg/dL 44-215 May 17, 2024 10:20 AM [facility] GGT GAMMA-GT Specimen Type: PLASMA Comment: No hemolysis noted. Ordering Provider: JONATHON CHAU Report Released Date/Time: May 17, 2024 09:56 AM Reporting Lab: [facility] [address] [facility] [address] Performing Lab: [facility] [address] [facility] [address] GGT GAMMA-GT 81 [IU]/L H 12-64 May 17, 2024 10:20 AM [facility] COMPREHENSIVE METABOLIC PANEL Specimen Type: PLASMA Comment: No hemolysis noted. Ordering Provider: JONATHON CHAU Report Released Date/Time: May 17, 2024 09:56 AM Reporting Lab: [address] [address] Performing Lab: [address] [address] CREATININE 1.05 mg/dL 0.7-1.3 UREA NITROGEN 16.4 [...] 75.4 >60 May 17, 2024 10:20 AM [facility] CBC Specimen Type: BLOOD No comment entered. Ordering Provider: JONATHON CHAU Report Released Date/Time: May 17, 2024 09:56 AM Reporting Lab: [address] [address] Performing Lab: [address] [address] WBC 5.0 10*3/uL 3.6-11.2 RBC 5.01 10*6/uL [...] 10*3/uL 0.00-0.60 BASOPHILS, ABSOLUTE 0.07 10*3/uL 0.00-0.20 Vital Signs: All taken on the encounter date This section contains inpatient and outpatient Vital Signs collected on the date of the Encounter. Date/Time Temperature Pulse Blood Pressure Respiratory Rate SP02 Pain Height Weight Body Mass Index Source Jun 07, 2024 11:56 AM 147/70 [facility] N Jun 07, 2024 11:53 AM 98.1 61 155/81 18 96 0 231.7 33 [facility] N Social History: Smoking Status (Most current) and Tobacco Use (All prior to encounter date) This section includes the most current, and the historical, smoking and tobacco- related health factors from the [place] facility where the Encounter took place. Current Smoking Status This section includes the most current smoking, or tobacco-related health factor, from the [place] facility where the Encounter took place. Date/Time Current Smoking Status Comment Radhika goins Aug 11, 2016 10:34 AM QUIT TOBACCO >7 YEARS AGO [facility] Tobacco Use History This section includes a history of the smoking, or tobacco-related health factors, that were collected on or before the date of the Encounter. The data comes from the [place] facility where the Encounter took place. Date/Time Smoking Status/Tobacco Use Comment Juan acility Sep 30, 2015 10:12 AM QUIT TOBACCO >7 YEARS AGO [facility] Oct 29, 2014 10:23 AM QUIT TOBACCO >7 YEARS AGO [facility] Dec 27, 2013 01:27 PM QUIT TOBACCO >7 YEARS AGO [facility] Feb 24, 2013 02:01 PM LIFETIME NON-USER OF TOBACCO [facility] Feb 11, 2009 10:09 AM QUIT TOBACCO >7 YEARS AGO [facility] Oct 06, 2006 09:30 AM CURRENT NON-TOBACC O USER-HX OF USE [facility] Oct 06, 2006 09:30 AM TOBACCO TERMINATION STAGE [facility] Advance Directives: All historical and current Section Date Range: From patient's date of to the date document was created. This section includes ALL of a patient's completed or amended [place] Advance and Rescinded Directives. The entries below indicate that a directive exists for the patient, but an actual copy is not included with this document. The data comes from all [place] facilities. Date Advance Directives Provider Source Jan 19, 2017 ADVANCE DIRECTIVE DISCUSSION ERICK BARDALES [facility] Radiology Reports: +/- 30 days of [...] the Encounter. The data comes from all [place] treatment facilities. Date/Time Radiology Report Provider Source Jun 07, 2024 02:[address] CHEST W/CONTRAS T & 3D: ABIEL WLAKER [id number] -1950 M Exm Date: JUN 07, 2024@14:29 Req Phys: JOHANA REDDY Loc: YASH-ONCOLOGY KANDI (Req'g Im Loc: YASH-CT IMAGING Service: [facility], [address] [address] (Case [id number] COMPLETE) CT THORAX, DIAGNOSTIC, W/CONTRAS(CT Detailed) CPT:75634 Contrast Media : Non-ionic Iodinated Reason for Study: Shortness of breath (Case [id number] COMPLETE) UNLISTED CT PROCEDURE (CT Detailed) CPT:64005 CPT Modifiers : 52 REDUCED SERVICES Clinical History: Responsible Attending: Dr. Orantes Attending Contact Number: [phone] Resident Contact Number: CT chest, high resolution Allergies listed in CPRS chart: TRAMADOL Creatinine: CREATININE 0.87 mg/dL 03/06/2024 09:52 /eGFR: STL EGFR (within one year). CREATININE 0.87 mg/dL (03/06/24 09:52) Wt: 233.1 lb [105.73 kg] (05/17/2024 08:37) History of: Renal failure, chronic or acute renal disease: NO Report Status: Verified Date Reported: JUN 07, 2024 Date Verified: JUN 07, 2024 Accounts Receivable Analyst E-Sig:/ES/LISHA BRYANT Report: , [id number], [id number] INDICATION: Shortness of breath COMPARISON: None TECHNIQUE: [...] suggested. Primary Interpreting Staff: LISHA BRYANT, RADIOLOGIST (Accounts Receivable Analyst) /LISHA [facility] Jun 07, 2024 02:[address] ABD PEL W/CONT & 3D: ABIEL WALKER [id number] -1950 M Exm Date: JUN 07, 2024@14:28 Req Phys: JOHANA REDDY Loc: YASH-ONCOLOGY KANDI (Req'g Img Loc: YASH-CT IMAGING YASH Service: Unknown [facility], [address] [place] [address] (Case [id number] COMPLETE) CT ABDOMEN AND PELVIS W/CONTRAST (CT Detailed) CPT:87437 Contrast Media : Non-ionic Iodinated Reason for Study: enlarged spleen (Case [id number] COMPLETE) CT 3D RENDERING W INDEPENDENT WOR(CT Detailed) CPT:69014 Clinical History: Responsible Attending: Dr. Orantes Attending Contact Number: [phone] Resident Contact Number: spleenomegally, evaluation for liver, lymphadenopathy Allergies listed in CPRS chart: TRAMADOL Creatinine:CREATININE 0.87 mg/dL 03/06/2024 09:52 /eGFR: STL EGFR (within one year). CREATININE 0.87 mg/dL (03/06/24 09:52) Wt: 233.1 lb [105.73 kg] (05/17/2024 08:37) History of: Renal failure, chronic or acute renal disease: NO Report Status: Verified Date Reported: JUN 07, 2024 Date Verified: JUN 07, 2024 Accounts Receivable Analyst E-Sig:/ES/LISHA BRYANT Report: , [id number], [id number] INDICATION: Shortness of breath COMPARISON: None TECHNIQUE: [...] suggested. Primary Interpreting Staff: LISHA BRYANT, RADIOLOGIST (Accounts Receivable Analyst) /LISHA [facility] Encounter Notes: All associated encounter notes This section contains the clinical notes associated to the Encounter. Date/Time Encounter Note(s) Provider Source Jun 22, 2024 04:30 PM PHYSICIAN LETTERS: LOCAL TITLE: TEST RESULT GENERAL LETTER STL STANDARD TITLE: PHYSICIAN LETTERS DATE OF NOTE: JUN 22, 2024@16:30 ENTRY DATE: JUN 22, 2024@16:30:18 AUTHOR: MARY SON COSIGNER: URGENCY: STATUS: COMPLETED [facility] [address] [place] [address] JUN 22, 2024 ABIEL WALKER [address], [place] [address] Dear Abiel Walker, I would like to update you on your recent test results. MICROALBUMIN - The microalbumin to creatinine ratio test is most commonly used to screen for kidney problems. MICROALBUMIN No MICRAL/CREAT RATIO (STL) data found These results are abnormal. Jun 09, 2024 uACR (STL) 103 H mg/g 0 - 29 The level is elevated and will be reassessed after your surgery Collection time: Jun 07, 2024@14:22 hsCRP 4.65 H mg/L 0 - 3.1 on 06/07/24. The atorvastatin was increased to 60 mgs. But, a dose of 80 mgs is advised. The high CrP means you have inflammation inside your blood vessels and that you need to be on a high intensity statin and reduce intake of all animal products (milk, meat, eggs and cheese. --------- ------ ----- ----- BRAIN NATRIURETIC PEPTIDE 198.9 H pg/mL 0 - 100 This level is elevated because of heart failure and retention of extra fluid. Please take the water pill Bumex .5 mgs daily per instructions unless the cardiac surgery teams tells you to stop the med. . --------- ------ ----- ----- MAGNESIUM level is within normal limits at 1.7 mg/dL 1.6 - 2.6 Level is within normal limits. Cardiac Cath:-Multivessel CAD: -CT surgery is evaluating you for surgery. - Continue aspirin and atorvastatin. Titration of your heart failure meds will resume after your heart surgery. .. Updated labs will be done before, during and after surgery.. -------- FUTURE APPOINTMENTS: 06/28/2024 08:15 YASH-ONCOLOGY KANDI 07/03/2024 10:30 YASH-MAN PACT STAR RES 7 07/20/2024 10:00 [facility] [facility] MGMT 08/18/2024 15:30 YASH-CARDIOLOGY DAPHNE Sincerely, Mary Son DNP, MSN, DANDY OPERATOR- ADVANCED PRACTICE NURSE DENISE,ABIEL SON,MARY Graham [facility] Jun 11, 2024 02:58 AM ADDENDUM: LOCAL TITLE: Addendum STANDARD TITLE: ADDENDUM DATE OF NOTE: JUN 11, 2024@02:58:04 ENTRY DATE: JUN 11, 2024@02:58:06 AUTHOR: MARY SON EXP COSIGNER: URGENCY: STATUS: COMPLETED Collection time: Jun 09, 2024@11:48 Test Name Result Units Range --------- ------ ----- ----- uACR (STL) 103 H mg/g 0 - 29 Collection time: Jun 07, 2024@14:22 Test Name Result Units Range --------- ------ ----- ----- hsCRP 4.65 H mg/L 0 - 3.1 --------- ------ ----- ----- BRAIN NATRIURETIC PEPTIDE 198.9 H pg/mL 0 - 100 --------- ------ ----- ----- MAGNESIUM 1.7 mg/dL 1.6 - 2.6 PROCEDURE SUMMARY -Multivessel CAD RECOMMENDATIONS -CT surgery eval for CABG. -Conitnue aspirin and high intensity statin. -7 day event monitor as patient has a new type I Mobitz block with bifascicular block. Will mail letter and defer med titration since a Cardiac surgery is planned in the very near future.. Updated labs will be done before, during and after surgery.. /es/ Mary Son DNP, MSN, DANDY OPERATOR- ADVANCED PRACTICE NURSE Signed: 06/22/2024 16:28 Receipt Acknowledged By: 06/28/2024 16:19 /shen/ manuel baird M.D. Staff Physician --- Original Document --- 06/07/24 CARDIOLOGY OUTPATIENT CONSULT STL: 06/07/24 CARDIOLOGY OUTPATIENT CONSULT STL: Life Sustaining Treatment Orders REASON FOR VISIT: TTE ECHO ordered for evaluation of dyspnea. Results showed new HFrEF and severe regional hypokinesis in posterior lateral wall. Need cardiology revaluation for CAD and CHF. Patient denies any active chest pain. DATE OF LAST CARDIOLOGY VISIT: first visit RELEVANT HX AND DIAGNOSTIC DATA WERE REVIEWED AND ADITIONAL HX WAS PROVIDED BY THE PT. HISTORY OF PRESENT ILLNESS: ABIEL WALKER is a 74 DECLINED TO ANSWER MALE WITH HISTORY SIGNIFICANT FOR: 4) Hypertension (SNOMED CT 06788694) 6) Hyperlipidemia (SNOMED CT 71615258) 9) Diabetes mellitus with neuropathy 16) Fatty liver SUBJECTIVE: (PERT + OR NEGS) no recent hospitalization.. Pt states: been short of breath for years and was told nothing is wrong Gets when bringing groceries in from the car; has to rest frequently sleeps on 1 pillow; wears cpap mask.. Has hiatal hernia and may experience pain in center of chest if he misses the omeprazole; He denies chest pain for any other reasons. ACTIVITY LEVEL: Participates in an exercise program. 1/2 hr 2x/wk CARDIOVASCULAR: Negative for chest discomfort, palpitations, skipped heart beats. RESPIRATORY: Neg for dyspnea/SOB; sleeps on 1-2 pillow(s). Negative for waking up short of breath. negative for cough SLEEP PROBLEMS: Negative for sleep problems CONSTITUTIONAL: Negative for fatigue or weakness GASTROINTESTINAL: Negative for abdominal pain, bloody stools, or dark stools Negative for frequent heartburn, episodes of nausea or vomiting. Extremity: Negative for calf pain when ambulating negative for leg swelling NEUROLOGIC: Negative for denies headache, focal weakness Negative for episodes of syncope, near syncope and, extremity numbness, or Dizziness HEMATOLOGIC: Negative for unusual bruising or bleeding. PSYCHIATRIC: Negative for depression or anxiety. 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 SOCIAL HISTORY: . SMOKING STATUS: former smoker ETOH Denies Illicit drugs denies PAST MEDICAL PROBLEMS/SURGERIES 1) Asthma (SNOMED CT 542594769) 2) Gastro-esophageal reflux disease (SNOMED CT 251210820) 3) Peptic Ulcer Disease * (ICD-9-CM 533.90) 4) Hypertension (SNOMED CT 13451819) 5) Neoplasm of pituitary gland (SNOMED CT 536500401) 6) Hyperlipidemia (SNOMED CT 99763518) 7) Erectile dysfunction associated with type 2 diabetes mellitus 8) Osteoarthritis of knee 9) Diabetes mellitus with neuropathy 10) Low back pain 11) Obesity 12) Patellofemoral syndrome of right knee 13) History of left total knee replacement 14) History of arthroplasty of right knee 15) Exposure to potentially hazardous substance 16) Fatty liver Active Outpatient Medications Status ========= 1) ACCU-CHEK [...] ITCHY, OR SORE SKIN. 4) ATORVASTATIN CALCIUM 80MG TAB TAKE ONE-HALF TABLET BY ACTIVE MOUTH EVERY EVENING FOR HIGH CHOLESTEROL 5) CARBOXYMETHYLCELLULOSE NA 0.5% OPH SOLN INSTILL 1 ACTIVE DROP IN BOTH EYES FOUR TIMES A DAY NEEDED FOR DRY EYE(S) 6) DEXTROSE 24GM/31GM SQUEEZE TUBE TAKE 1 TUBE BY MOUTH ACTIVE NEEDED FOR LOW BLOOD SUGAR REPEAT DOSE IF HYPOGLYCEMIA CONTINUES 15 MINUTES AFTER THE FIRST DOSE. 7) DULOXETINE HCL 60MG EC CAP TAKE ONE CAPSULE BY MOUTH ACTIVE ONCE A DAY FOR NERVE PAIN DO NOT ABRUPTLY DISCONTINUE MEDICATION. 8) GLUCOSE SENSOR FREESTYLE RADHIKA 3 USE SENSOR EVERY ACTIVE 2 WEEKS FOR BLOOD SUGAR MONITORING CHANGE SENSOR/SITE EVERY 14 DAYS. TO REPLACE SENSOR FOR ANY REASON OR FOR TECHNICAL HELP PLEASE CALL [employer] HELP DESK: -SPECIFIC PHONE NUMBER: [phone]). 9) HCTZ 12.5/LISINOPRIL 20MG TAB TAKE 2 TABLETS BY MOUTH ACTIVE EVERY MORNING TO LOWER BLOOD PRESSURE 10) INSULIN,ASPART(EQV-NOVLG)100UN/M L FLXPEN INJECT 6 ACTIVE UNITS UNDER THE SKIN BEFORE SUPPER FOR DIABETES ADMINISTER 10 MINUTES BEFORE FOOD DIRECTED. REFRIGERATE UN-OPENED PENS. DISCARD CARTRIDGE 28 DAYS AFTER OPENING. 11) INSULIN,GLARG(TOUJEO MAX) 300 UNT/ML 3ML INJECT 90 ACTIVE UNITS UNDER THE SKIN ONCE A DAY FOR DIABETES ADMINISTER AT SAME TIME EACH DAY DIRECTED. DISCARD ANY OPEN CARTRIDGE AFTER 42 DAYS. *HIGH DOSE INSULIN* 12) LANCET,SOFTCLIX USE LANCET FOR BLOOD TEST TWICE A DAY ACTIVE FOR BLOOD SUGAR MONITORING USE DIRECTED 13) MELOXICAM 7.5MG TAB TAKE ONE TABLET BY MOUTH ONCE A ACTIVE DAY NEEDED FOR OSTEOARTHRITIS 14) METFORMIN HCL 500MG 24HR SA TAB TAKE TWO TABLETS BY ACTIVE MOUTH TWICE A DAY FOR BLOOD SUGAR CONTROL. TAKE WITH FOOD. AVOID ALCOHOL. DISCONTINUE BEFORE GETTING XRAY DYE. 15) METHOCARBAMOL 500MG TAB TAKE 1 TABLET BY MOUTH TWICE ACTIVE DAILY NEEDED FOR MUSCLE SPASM 16) MULTIVITAMIN CAP/TAB TAKE 1 TABLET BY MOUTH ONCE A ACTIVE DAY FOR NUTRITION/DIETARY SUPPLEMENTATION 17) NEEDLE,PEN 31G,5MM USE 1 NEEDLE UNDER THE SKIN TWICE ACTIVE A DAY FOR LONG ACTING INSULIN AND MEALTIME INSULIN 18) OMEPRAZOLE 20MG EC CAP TAKE ONE CAPSULE BY MOUTH ACTIVE (S) EVERY MORNING TO LOWER STOMACH ACID. TAKE 30 MINUTES PRIOR TO FOOD. 19) PREGABALIN 200MG ORAL CAP TAKE ONE CAPSULE BY MOUTH ACTIVE TWICE A DAY 20) SEMAGLUTIDE 1MG/0.75ML INJ PEN 3ML INJECT 1MG UNDER ACTIVE THE SKIN EVERY WEEK FOR DIABETES 21) TRANSPARENT DRESSING 2 3/8IN X 2 3/4IN USE/APPLY ACTIVE DRESSING(S) TO AFFECTED AREA(S) TWO TIMES PER WEEK FOR WOUND CARE Active Non-VA Medications Status ========= 1) Non-VA NAPROXEN NA 220MG TAB 220MG BY MOUTH ACTIVE NEEDED 22 Total Medications Allergies: TRAMADOL Physical Exam PHYSICAL EXAM CONSTITUTIONAL: BP: 147/70 P: 61 R: 18 WT: 231.7 T: 98.1 HT: Patient Weight History - Last Four 1. 231.7 lbs. / 105.1 kg. on JUN 07, 2024@11:53:49 2. 235.7 lbs. / 106.9 kg. on JUN 05, 2024@08:06:54 3. 233.1 lbs. / 105.7 kg. on MAY 17, 2024@08:37:39 4. 231.0 lbs. / 104.8 kg. on APRIL 07, 2024@10:01:33 APPEARANCE: -no acute distress, well nourished - HEENT: absent central cyanosis (lips, mucous membranes, or tongue); membranes moist, no erythema (redness) of conjunctivae, Neg for xanthelasma or yellow plaque around the eyelids; - CARDIOVASCULAR: - normal S1 & S2; No rubs, gallops or murmurs heard, - Radial pulses equal at 2+ - NECK: -No JVD ---Carotid bruit: - PULMONARY: breathing appears smooth, regular and without effort or use of accessory muscles. No audible wheezing, crackles, or labored breathing sounds. - ABDOMEN: Soft and non-tender - Musculoskeletal: negative for calf tenderness. - EXTREMETIES: - Edema: 1+ bilateral pitting edema - Pulses: radial Pulse 2+; distal pulses diminished ). - SKIN: -warm and dry; no rash noted - NEUROLOGIC: No focal neurological deficits (paralysis); no tremors, - GAIT: cane - PSYC: Affect/ Mood appropriate; orientated to time, LABS & DIAGNOSTIC TEST REVIEWED: I discussed the available normal and abnormal test results during the clinic visit. Additional tests may or may not be required. Once new results are. received, I will analyze them and strive to inform the patient within 7 days by phone or by mail. Lab Data SLT - Lab Tests Selected Collection DT Specimen Test Name Result Units Ref Range 03/06/2024 09:52 BLOOD HGA1C 7.0 H % 4.0 - 6.0 11/11/2023 10:38 BLOOD HGA1C 8.8 H % 4.0 - 6.0 06/29/2023 10:32 BLOOD HGA1C 8.1 H % 4.0 - 6.0 TSH 3.510 uIU/mL 06/05/2024 09:00 FREE T4: ____ SODIUM 138 mEq/L 05/17/2024 10:20 POTASSIUM 4.5 mEq/L 05/17/2024 10:20 CHLORIDE 106 mEq/L 05/17/2024 10:20 UREA NITROGEN 16.4 mg/dL 05/17/2024 10:20 CREATININE 1.05 mg/dL 05/17/2024 10:20 CALCIUM 9.9 mg/dL 05/17/2024 10:20 CARBON DIOXIDE 21 L mEq/L 05/17/2024 10:20 GLUCOSE 100 H mg/dL 05/17/2024 10:20 EGFR (CKD-EPI 2020) 75.4 05/17/2024 10:20 MAGNESIUM: ____ MICRAL/CREAT: Micral/Creat STL No data available for: uACR (STL) No BRAIN NATRIURETIC PEPTIDE data found White cell count.: 5.0 10*3/uL (05/17/24 10:20) hemoglobin: HGB 13.6 g/dL 05/17/2024 10:20 Hematocrit: 40.8 % (05/17/24 10:20) Platelet: PLT 103 L 10*3/uL 05/17/2024 10:20 Collection DT Specimen Test Name Result Units Ref Range 04/07/2024 11:40 PLASMA PROTIME 13.0 H sec 9.4 - 12.5 04/07/2024 11:40 PLASMA INR VALUE 1.2 INR ALBUMIN 4.0 g/dL 05/17/2024 10:20 ALKALINE PHOSPHATASE 93 U/L 05/17/2024 10:20 TOTAL BILIRUBIN 0.7 mg/dL 05/17/2024 10:20 SGOT 37 U/L H (05/17/24 10:20) SGPT 36 U/L (05/17/24 10:20) Trig 145 mg/dL (04/07/24 11:40) chol CHOLESTEROL 180 mg/dL 04/07/2024 11:40 HDL HDL(New) 34 L mg/dL 04/07/2024 11:40 CALCULATED LDL 117 mg/dL 04/07/2024 11:40 Collection DT Spec CHOL TRIG CalcLDL HDL 04/07/2024 11:40 PLASM 180 145 117 34 L a 03/06/2024 09:52 PLASM 161 119 107 30 L b 03/22/2023 12:00 PLASM 196 140 137 31 L c 07/09/2020 11:44 PLASM 174 139 119 27 L CARDIAC EVALUATIONS: Excerpt from Echo on: 04/21/24 1. Upper normal left ventricula size. Mild left ventricular hypertrophy. 2. Global systolic function: Overall left ventricular systolic function is mildly impaired with an estimated ejection fraction of 45 - 50%. 3. Regional systolic function: Wall motion: Severe hypokinesis in posterior lateral cueva. 4. Diastolic function: Difficult to assess diastolic function due to arrhythmias [Wenckebach]. 5. The left atrial size is upper normal. 6. The right ventricle is moderately enlarged. Mild right ventricular systolic dysfunction. 7. Mild pulmonary hypertension with an estimated right ventricular/pulmonary artery systolic pressure of 41 mmHg. 8. Aortic valve is trileaflet and is mildly thickened. Very mild aortic stenosis. 9. Ksow-lg-puyjyhqy mitral regurgitation. 10. As compared to the previous echocardiogram done on 05-07-2021 there have been significant changes, now EF lower with severe posterior lateral hypokinesis, pulmonary pressures are elevated and the rhythm is no longer sinus but shows probable Wenckebach [rate 60-70 bpm]. Carolann Alonso MD Reading physician n 1. Global systolic function: Left ventricular function appears hyperdynamic with an estimated ejection fraction of >70%. 2. Normal diastolic function with normal left atrial filling pressure. 3. Hyperdynamic right ventricular systolic function. 4. Normal chamber sizes. 5. The inferior vena cava is normal in size with normal inspiratory variation, which is consistent with estimated right atrial pressure of 5 mmHg. 6. Pulmonary pressures are within normal limits. 7. No hemodynamically significant valvular abnormality. ZANE HOANG MD Reading physician CARDIAC CATH MPI CHEST XRAY: Impression for CHEST X-RAY, 2 VIEWS, 01/06/22, case [id number] No acute cardiopulmonary process. Dictated by Jeremy Sanon MD, PhD (PGY-2, R1). I, Ignacio Lepe, have reviewed the images and report and concur with these findings. No Pulmonary Function Test for this patient. Jun 24, 2021@16:21:13 53566.2 Ventricular Rate: 86 BPM 16236.3 Atrial Rate: 86 BPM 35616.4 P-R Interval: 218 ms 39759.5 QRS Duration: 140 ms 59405.6 Q-T Interval: 382 ms 00172 QTC Calculation(Bezet):457 ms 32416.12 Calculated P [place]: 74 degrees 23026.13 Calculated R [place]: -40 degrees 41739.14 Calculated T [place]: 44 degrees Sinus rhythm with 1st degree A-V block Left axis deviation Right bundle branch block Minimal voltage criteria for LVH, may be normal variant ( R in aVL ) Abnormal ECG When compared with ECG of 17-AUG-2019 14:48, ASSESSMENT/PLAN---Management of care explained and accepted. (Medical Decision Making and Plan of Care) (recommendations for treatment, meds, and reasons) * The following meds were revised for continuance. #HFrEF.. symptomatic with sob when walking farther than 10 feet.. activity is severely limited.. Noted EF decreased to to 45-50% from 70% in 2020. neg for CP but SOB can be his anginal equivalent.. +for darrel edema.. ordered: BNP, Bumex .5 mgs ordered for Prn USE.. [...] <70 Atorvastatin increased to 60 mgs daily HScrp ordered. #thrombocytopenia.. Pt is followed by commercial loan closer. Requested call back to discuss the Noted work up for thrombocytopenia ( and risk of bleeding) and possible contraindication to ASA 81 mgs for HF and possible. CAD.. I ordered and placed aspirin on hold pending input from hemo.. I will also ask RNCM to call pt and cont HF instruction re meds and titration process. Other Issues per PCP or at the next visit (per clinical indications) MEDICATION RECONCILIATION: At the start of the clinic visit,ABIEL WALKER Was given a printed copy of the medication list. to review and confirm that he is taking the prescribed meds. All cardiac medications were reconciled during the visit. ABIEL WALKER was reminded to contact, the pharmacy for refills. and to contact the PCP for routine renewals. The meds restricted by cardiology were highlighted on the med sheet. All patients with an EF </= 40% are considered for Leroy inhibitors or ARBs except when contraindicated due to intolerance/allergy, hypotension, or renal disease. Documentation is found in the historical record if not. repeated in this note. Anticoagulation therapy was discussed with all patients in the setting of atrial flutter/fibrillation and held in cases where the complications of bleeding (e.g., fall risk) outweighs the risk of stroke. All patients on anticoagulation medications are counseled on bleeding risks. and the warning signs of a stroke or TIA. Except where mentioned or restricted, the PCP may renew the cardiac medications. Other listed profile meds will continue as directed by the PCP. (Primary provider). HEALTH PROMOTION/HEALTH MAINTENANCE & EDUCATION DISEASE: Discussed treatment options & counseled on exacerbating factors. DISEASE: Coordinated care; discussed treatment options, & counseled on exacerbating factors. ABIEL WALKER was Encouraged participate in regular exercise program 3-5 days/week and maximize risk factor reduction & lifestyle modifications i.e., BP <130/80 and LDL goal <70 and non HDL <100. Discussed at length about lifestyle modifications regarding diet, exercise, and medication compliance. Assessed smoking habits and whether actively using tobacco products or a past history of nicotine dependence, smoking cessation strategies were reinforced. ABIEL WALKER asked relevant questions, and to the best of my ability, I provided answers. He demonstrated understanding of the information regarding his labs, medications, and plan of care and agreed with the current care plan. ABIEL WALKER was also given verbal instructions and ext. number [phone]. to call in case his condition changes or if he has questions before the next scheduled appointment. Thank you for involving me in this patient's care. Please Feel free to contact. me at [phone] or on Teams if you have any questions or need further. assistance. TOBACCO USE and PAD: are counseled on the risks of smoking at every visit including. Patients with no history of smoking to dissuade them from starting the use of tobacco products: former smokers to minimize recidivism of nicotine dependence. and current smokers to help them cease the use of nicotine. products. PAD: Where relevant age between 50-60-years and history of smoking, we and/or the PCP will obtain an abdominal ultrasound to screen for the possibility of an abdominal aortic aneurysm and ABIs to screen for occult PAD. When completed, the results will be found in [facility]. History of present illness In patients with a history of CHF, LEROY/ARB use is considered and held when. contraindications such as allergies, renal function preclude use. Please refer to the admin note for specific additional details. Time spent on this F2F encounter was > 60 MIN. This time does not include time spent in any separately reportable billing. services. Included: Chart review, visit preparation, patient exam, medication reconciliation, documentation in CPRS, and possible test/procedure consideration after communication with patient, caregiver or colleagues and history review. Post visit F2F activities are excluded. None F2F tasks may or may not be added as an addendum to the note. FOLLOW UP VISIT (RTC): 2 mos A Sooner FU phone or F2F appt may be scheduled in the interim if clinically. indicated. /shen/ Mary Son DNP, MSN, DANDY OPERATOR- ADVANCED PRACTICE NURSE Signed: 06/07/2024 14:[address] [facility] Jun 07, 2024 02:35 PM ADMINISTRATIVE NOTE: LOCAL TITLE: ADMINISTRATIVE STL STANDARD TITLE: ADMINISTRATIVE NOTE DATE OF NOTE: JUN 07, 2024@14:35 ENTRY DATE: JUN 07, 2024@14:35:35 AUTHOR: MARY SON EXP COSIGNER: URGENCY: STATUS: COMPLETED #-Chronic care management: (CCM) CCM Note: - Patient has multiple chronic conditions expected to last at least 12 months - These conditions place the patient at significant risk of , exacerbation, or functional decline - A care plan was established, implemented, revised, or monitored - CCM services were explained and the patient accepted them - Complex medical problems were reviewed and analyzed - Patient is at high risk for morbidity and requires additional surveillance, testing, or treatment for co-morbid conditions Please note that the documentation may have been partially completed with computer voice recognition software,and errors in grammar, syntax, and interpretation may have occurred inadvertently. Please disregard any such errors and feel free to bring them to my attention NON FACE 2 FACE TASK; TOTAL TIME: 45 This time does not include time spent in any separately reportable services Task post clinic visit include (but are not limited to): post visit work, review of recent notes, relevant diagnostic test, procedures, services;; developing, monitoring, revising and documenting plan of care after the F visit;and communicating with ancillary staff and other providers when clinically indicated After review the following test or consults were ordered: cath /es/ Mary Son DNP, MSN, DANDY OPERATOR-BC ADVANCED PRACTICE NURSE Signed: 06/07/2024 14:37 MARY SON [facility] Jun 07, 2024 01:24 PM CARDIOLOGY CONSULT: LOCAL TITLE: CARDIOLOGY OUTPATIENT CONSULT ST STANDARD TITLE: CARDIOLOGY CONSULT DATE OF NOTE: JUN 07, 2024@13:24 ENTRY DATE: JUN 07, 2024@13:24:52 AUTHOR: MARY SON EXP COSIGNER: URGENCY: STATUS: COMPLETED CARDIOLOGY OUTPATIENT CONSULT STL Has ADDENDA 06/07/24 CARDIOLOGY OUTPATIENT CONSULT STL: Life Sustaining Treatment Orders REASON FOR VISIT: TTE ECHO ordered for evaluation of dyspnea. Results showed new HFrEF and severe regional hypokinesis in posterior lateral wall. Need cardiology revaluation for CAD and CHF. Patient denies any active chest pain. DATE OF LAST CARDIOLOGY VISIT: first visit RELEVANT HX AND DIAGNOSTIC DATA WERE REVIEWED AND ADITIONAL HX WAS PROVIDED BY THE PT. HISTORY OF PRESENT ILLNESS: ABIEL WALKER is a 74 DECLINED TO ANSWER MALE WITH HISTORY SIGNIFICANT FOR: 4) Hypertension (SNOMED CT 13246833) 6) Hyperlipidemia (SNOMED CT 22242738) 9) Diabetes mellitus with neuropathy 16) Fatty liver SUBJECTIVE: (PERT + OR NEGS) no recent hospitalization.. Pt states: been short of breath for years and was told nothing is wrong Gets when bringing groceries in from the car; has to rest frequently sleeps on 1 pillow; wears cpap mask.. Has hiatal hernia and may experience pain in center of chest if he misses the omeprazole; He denies chest pain for any other reasons. ACTIVITY LEVEL: Participates in an exercise program. 1/2 hr 2x/wk CARDIOVASCULAR: Negative for chest discomfort, palpitations, skipped heart beats. RESPIRATORY: Neg for dyspnea/SOB; sleeps on 1-2 pillow(s). Negative for waking up short of breath. negative for cough SLEEP PROBLEMS: Negative for sleep problems CONSTITUTIONAL: Negative for fatigue or weakness GASTROINTESTINAL: Negative for abdominal pain, bloody stools, or dark stools Negative for frequent heartburn, episodes of nausea or vomiting. Extremity: Negative for calf pain when ambulating negative for leg swelling NEUROLOGIC: Negative for denies headache, focal weakness Negative for episodes of syncope, near syncope and, extremity numbness, or Dizziness HEMATOLOGIC: Negative for unusual bruising or bleeding. PSYCHIATRIC: Negative for depression or anxiety. 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 SOCIAL HISTORY: . SMOKING STATUS: former smoker ETOH Denies Illicit drugs denies PAST MEDICAL PROBLEMS/SURGERIES 1) Asthma (SNOMED CT 348674671) 2) Gastro-esophageal reflux disease (SNOMED CT 491368264) 3) Peptic Ulcer Disease * (ICD-9-CM 533.90) 4) Hypertension (SNOMED CT 86318168) 5) Neoplasm of pituitary gland (SNOMED CT 427177820) 6) Hyperlipidemia (SNOMED CT 43902692) 7) Erectile dysfunction associated with type 2 diabetes mellitus 8) Osteoarthritis of knee 9) Diabetes mellitus with neuropathy 10) Low back pain 11) Obesity 12) Patellofemoral syndrome of right knee 13) History of left total knee replacement 14) History of arthroplasty of right knee 15) Exposure to potentially hazardous substance 16) Fatty liver Active Outpatient Medications Status ========= 1) ACCU-CHEK [...] ITCHY, OR SORE SKIN. 4) ATORVASTATIN CALCIUM 80MG TAB TAKE ONE-HALF TABLET BY ACTIVE MOUTH EVERY EVENING FOR HIGH CHOLESTEROL 5) CARBOXYMETHYLCELLULOSE NA 0.5% OPH SOLN INSTILL 1 ACTIVE DROP IN BOTH EYES FOUR TIMES A DAY NEEDED FOR DRY EYE(S) 6) DEXTROSE 24GM/31GM SQUEEZE TUBE TAKE 1 TUBE BY MOUTH ACTIVE NEEDED FOR LOW BLOOD SUGAR REPEAT DOSE IF HYPOGLYCEMIA CONTINUES 15 MINUTES AFTER THE FIRST DOSE. 7) DULOXETINE HCL 60MG EC CAP TAKE ONE CAPSULE BY MOUTH ACTIVE ONCE A DAY FOR NERVE PAIN DO NOT ABRUPTLY DISCONTINUE MEDICATION. 8) GLUCOSE SENSOR FREESTYLE RADHIKA 3 USE SENSOR EVERY ACTIVE 2 WEEKS FOR BLOOD SUGAR MONITORING CHANGE SENSOR/SITE EVERY 14 DAYS. TO REPLACE SENSOR FOR ANY REASON OR FOR TECHNICAL HELP PLEASE CALL [facility] HELP DESK: -SPECIFIC PHONE NUMBER: ([phone]). 9) HCTZ 12.5/LISINOPRIL 20MG TAB TAKE 2 TABLETS BY MOUTH ACTIVE EVERY MORNING TO LOWER BLOOD PRESSURE 10) INSULIN,ASPART(EQV-NOVLG)100UN/M L FLXPEN INJECT 6 ACTIVE UNITS UNDER THE SKIN BEFORE SUPPER FOR DIABETES ADMINISTER 10 MINUTES BEFORE FOOD DIRECTED. REFRIGERATE UN-OPENED PENS. DISCARD CARTRIDGE 28 DAYS AFTER OPENING. 11) INSULIN,GLARG(TOUJEO MAX) 300 UNT/ML 3ML INJECT 90 ACTIVE UNITS UNDER THE SKIN ONCE A DAY FOR DIABETES ADMINISTER AT SAME TIME EACH DAY DIRECTED. DISCARD ANY OPEN CARTRIDGE AFTER 42 DAYS. *HIGH DOSE INSULIN* 12) LANCET,SOFTCLIX USE LANCET FOR BLOOD TEST TWICE A DAY ACTIVE FOR BLOOD SUGAR MONITORING USE DIRECTED 13) MELOXICAM 7.5MG TAB TAKE ONE TABLET BY MOUTH ONCE A ACTIVE DAY NEEDED FOR OSTEOARTHRITIS 14) METFORMIN HCL 500MG 24HR SA TAB TAKE TWO TABLETS BY ACTIVE MOUTH TWICE A DAY FOR BLOOD SUGAR CONTROL. TAKE WITH FOOD. AVOID ALCOHOL. DISCONTINUE BEFORE GETTING XRAY DYE. 15) METHOCARBAMOL 500MG TAB TAKE 1 TABLET BY MOUTH TWICE ACTIVE DAILY NEEDED FOR MUSCLE SPASM 16) MULTIVITAMIN CAP/TAB TAKE 1 TABLET BY MOUTH ONCE A ACTIVE DAY FOR NUTRITION/DIETARY SUPPLEMENTATION 17) NEEDLE,PEN 31G,5MM USE 1 NEEDLE UNDER THE SKIN TWICE ACTIVE A DAY FOR LONG ACTING INSULIN AND MEALTIME INSULIN 18) OMEPRAZOLE 20MG EC CAP TAKE ONE CAPSULE BY MOUTH ACTIVE (S) EVERY MORNING TO LOWER STOMACH ACID. TAKE 30 MINUTES PRIOR TO FOOD. 19) PREGABALIN 200MG ORAL CAP TAKE ONE CAPSULE BY MOUTH ACTIVE TWICE A DAY 20) SEMAGLUTIDE 1MG/0.75ML INJ PEN 3ML INJECT 1MG UNDER ACTIVE THE SKIN EVERY WEEK FOR DIABETES 21) TRANSPARENT DRESSING 2 3/8IN X 2 3/4IN USE/APPLY ACTIVE DRESSING(S) TO AFFECTED AREA(S) TWO TIMES PER WEEK FOR WOUND CARE Active Non-VA Medications Status ========= 1) Non-VA NAPROXEN NA 220MG TAB 220MG BY MOUTH ACTIVE NEEDED 22 Total Medications Allergies: TRAMADOL Physical Exam PHYSICAL EXAM CONSTITUTIONAL: BP: 147/70 P: 61 R: 18 WT: 231.7 T: 98.1 HT: Patient Weight History - Last Four 1. 231.7 lbs. / 105.1 kg. on JUN 07, 2024@11:53:49 2. 235.7 lbs. / 106.9 kg. on JUN 05, 2024@08:06:54 3. 233.1 lbs. / 105.7 kg. on MAY 17, 2024@08:37:39 4. 231.0 lbs. / 104.8 kg. on APRIL 07, 2024@10:01:33 APPEARANCE: -no acute distress, well nourished - HEENT: absent central cyanosis (lips, mucous membranes, or tongue); membranes moist, no erythema (redness) of conjunctivae, Neg for xanthelasma or yellow plaque around the eyelids; - CARDIOVASCULAR: - normal S1 & S2; No rubs, gallops or murmurs heard, - Radial pulses equal at 2+ - NECK: -No JVD ---Carotid bruit: - PULMONARY: breathing appears smooth, regular and without effort or use of accessory muscles. No audible wheezing, crackles, or labored breathing sounds. - ABDOMEN: Soft and non-tender - Musculoskeletal: negative for calf tenderness. - EXTREMETIES: - Edema: 1+ bilateral pitting edema - Pulses: radial Pulse 2+; distal pulses diminished ). - SKIN: -warm and dry; no rash noted - NEUROLOGIC: No focal neurological deficits (paralysis); no tremors, - GAIT: cane - PSYC: Affect/ Mood appropriate; orientated to time, LABS & DIAGNOSTIC TEST REVIEWED: I discussed the available normal and abnormal test results during the clinic visit. Additional tests may or may not be required. Once new results are. received, I will analyze them and strive to inform the patient within 7 days by phone or by mail. Lab Data SLT - Lab Tests Selected Collection DT Specimen Test Name Result Units Ref Range 03/06/2024 09:52 BLOOD HGA1C 7.0 H % 4.0 - 6.0 11/11/2023 10:38 BLOOD HGA1C 8.8 H % 4.0 - 6.0 06/29/2023 10:32 BLOOD HGA1C 8.1 H % 4.0 - 6.0 TSH 3.510 uIU/mL 06/05/2024 09:00 FREE T4: ____ SODIUM 138 mEq/L 05/17/2024 10:20 POTASSIUM 4.5 mEq/L 05/17/2024 10:20 CHLORIDE 106 mEq/L 05/17/2024 10:20 UREA NITROGEN 16.4 mg/dL 05/17/2024 10:20 CREATININE 1.05 mg/dL 05/17/2024 10:20 CALCIUM 9.9 mg/dL 05/17/2024 10:20 CARBON DIOXIDE 21 L mEq/L 05/17/2024 10:20 GLUCOSE 100 H mg/dL 05/17/2024 10:20 EGFR (CKD-EPI 2020) 75.4 05/17/2024 10:20 MAGNESIUM: ____ MICRAL/CREAT: Micral/Creat STL No data available for: uACR (STL) No BRAIN NATRIURETIC PEPTIDE data found White cell count.: 5.0 10*3/uL (05/17/24 10:20) hemoglobin: HGB 13.6 g/dL 05/17/2024 10:20 Hematocrit: 40.8 % (05/17/24 10:20) Platelet: PLT 103 L 10*3/uL 05/17/2024 10:20 Collection DT Specimen Test Name Result Units Ref Range 04/07/2024 11:40 PLASMA PROTIME 13.0 H sec 9.4 - 12.5 04/07/2024 11:40 PLASMA INR VALUE 1.2 INR ALBUMIN 4.0 g/dL 05/17/2024 10:20 ALKALINE PHOSPHATASE 93 U/L 05/17/2024 10:20 TOTAL BILIRUBIN 0.7 mg/dL 05/17/2024 10:20 SGOT 37 U/L H (05/17/24 10:20) SGPT 36 U/L (05/17/24 10:20) Trig 145 mg/dL (04/07/24 11:40) chol CHOLESTEROL 180 mg/dL 04/07/2024 11:40 HDL HDL(New) 34 L mg/dL 04/07/2024 11:40 CALCULATED LDL 117 mg/dL 04/07/2024 11:40 Collection DT Spec CHOL TRIG CalcLDL HDL 04/07/2024 11:40 PLASM 180 145 117 34 L a 03/06/2024 09:52 PLASM 161 119 107 30 L b 03/22/2023 12:00 PLASM 196 140 137 31 L c 07/09/2020 11:44 PLASM 174 139 119 27 L CARDIAC EVALUATIONS: Excerpt from Echo on: 04/21/24 1. Upper normal left ventricula size. Mild left ventricular hypertrophy. 2. Global systolic function: Overall left ventricular systolic function is mildly impaired with an estimated ejection fraction of 45 - 50%. 3. Regional systolic function: Wall motion: Severe hypokinesis in posterior lateral cueva. 4. Diastolic function: Difficult to assess diastolic function due to arrhythmias [Wenckebach]. 5. The left atrial size is upper normal. 6. The right ventricle is moderately enlarged. Mild right ventricular systolic dysfunction. 7. Mild pulmonary hypertension with an estimated right ventricular/pulmonary artery systolic pressure of 41 mmHg. 8. Aortic valve is trileaflet and is mildly thickened. Very mild aortic stenosis. 9. Vxyv-xc-qjfrlnmp mitral regurgitation. 10. As compared to the previous echocardiogram done on 05-07-2021 there have been significant changes, now EF lower with severe posterior lateral hypokinesis, pulmonary pressures are elevated and the rhythm is no longer sinus but shows probable Wenckebach [rate 60-70 bpm]. Carolann Alonso MD Reading physician n 1. Global systolic function: Left ventricular function appears hyperdynamic with an estimated ejection fraction of >70%. 2. Normal diastolic function with normal left atrial filling pressure. 3. Hyperdynamic right ventricular systolic function. 4. Normal chamber sizes. 5. The inferior vena cava is normal in size with normal inspiratory variation, which is consistent with estimated right atrial pressure of 5 mmHg. 6. Pulmonary pressures are within normal limits. 7. No hemodynamically significant valvular abnormality. ZANE HOANG MD Reading physician CARDIAC CATH MPI CHEST XRAY: Impression for CHEST X-RAY, 2 VIEWS, 01/06/22, case [id number] No acute cardiopulmonary process. Dictated by Jeremy Sanon MD, PhD (PGY-2, R1). I, Ignacio Lepe, have reviewed the images and report and concur with these findings. No Pulmonary Function Test for this patient. Jun 24, 2021@16:21:13 45966.2 Ventricular Rate: 86 BPM 45260.3 Atrial Rate: 86 BPM 41684.4 P-R Interval: 218 ms 78504.5 QRS Duration: 140 ms 13720.6 Q-T Interval: 382 ms 30011 QTC Calculation(Bezet):457 ms 57912.12 Calculated P [place]: 74 degrees 80505.13 Calculated R [place]: -40 degrees 77499.14 Calculated T [place]: 44 degrees Sinus rhythm with 1st degree A-V block Left axis deviation Right bundle branch block Minimal voltage criteria for LVH, may be normal variant ( R in aVL ) Abnormal ECG When compared with ECG of 17-AUG-2019 14:48, ASSESSMENT/PLAN---Management of care explained and accepted. (Medical Decision Making and Plan of Care) (recommendations for treatment, meds, and reasons) * The following meds were revised for continuance. #HFrEF.. symptomatic with sob when walking farther than 10 feet.. activity is severely limited.. Noted EF decreased to to 45-50% from 70% in 2020. neg for CP but SOB can be his anginal equivalent.. +for darrel edema.. ordered: BNP, Bumex .5 mgs ordered for Prn USE.. [...] <70 Atorvastatin increased to 60 mgs daily HScrp ordered. #thrombocytopenia.. Pt is followed by commercial loan closer. Requested call back to discuss the Noted work up for thrombocytopenia ( and risk of bleeding) and possible contraindication to ASA 81 mgs for HF and possible. CAD.. I ordered and placed aspirin on hold pending input from hemo.. I will also ask RNCM to call pt and cont HF instruction re meds and titration process. Other Issues per PCP or at the next visit (per clinical indications) MEDICATION RECONCILIATION: At the start of the clinic visit,ABIEL WALKER Was given a printed copy of the medication list. to review and confirm that he is taking the prescribed meds. All cardiac medications were reconciled during the visit. ABIEL WALKER was reminded to contact, the pharmacy for refills. and to contact the PCP for routine renewals. The meds restricted by cardiology were highlighted on the med sheet. All patients with an EF </= 40% are considered for Leroy inhibitors or ARBs except when contraindicated due to intolerance/allergy, hypotension, or renal disease. Documentation is found in the historical record if not. repeated in this note. Anticoagulation therapy was discussed with all patients in the setting of atrial flutter/fibrillation and held in cases where the complications of bleeding (e.g., fall risk) outweighs the risk of stroke. All patients on anticoagulation medications are counseled on bleeding risks. and the warning signs of a stroke or TIA. Except where mentioned or restricted, the PCP may renew the cardiac medications. Other listed profile meds will continue as directed by the PCP. (Primary provider). HEALTH PROMOTION/HEALTH MAINTENANCE & EDUCATION DISEASE: Discussed treatment options & counseled on exacerbating factors. DISEASE: Coordinated care; discussed treatment options, & counseled on exacerbating factors. ABIEL WALKER was Encouraged participate in regular exercise program 3-5 days/week and maximize risk factor reduction & lifestyle modifications i.e., BP <130/80 and LDL goal <70 and non HDL <100. Discussed at length about lifestyle modifications regarding diet, exercise, and medication compliance. Assessed smoking habits and whether actively using tobacco products or a past history of nicotine dependence, smoking cessation strategies were reinforced. ABIEL WALKER asked relevant questions, and to the best of my ability, I provided answers. He demonstrated understanding of the information regarding his labs, medications, and plan of care and agreed with the current care plan. ABIEL WALKER was also given verbal instructions and ext. number [phone]. to call in case his condition changes or if he has questions before the next scheduled appointment. Thank you for involving me in this patient's care. Please Feel free to contact. me at [phone] or on Teams if you have any questions or need further. assistance. TOBACCO USE and PAD: are counseled on the risks of smoking at every visit including. Patients with no history of smoking to dissuade them from starting the use of tobacco products: former smokers to minimize recidivism of nicotine dependence. and current smokers to help them cease the use of nicotine. products. PAD: Where relevant age between 50-60-years and history of smoking, we and/or the PCP will obtain an abdominal ultrasound to screen for the possibility of an abdominal aortic aneurysm and ABIs to screen for occult PAD. When completed, the results will be found in [facility]. History of present illness In patients with a history of CHF, LEROY/ARB use is considered and held when. contraindications such as allergies, renal function preclude use. Please refer to the admin note for specific additional details. Time spent on this F2F encounter was > 60 MIN. This time does not include time spent in any separately reportable billing. services. Included: Chart review, visit preparation, patient exam, medication reconciliation, documentation in CPRS, and possible test/procedure consideration after communication with patient, caregiver or colleagues and history review. Post visit F2F activities are excluded. None F2F tasks may or may not be added as an addendum to the note. FOLLOW UP VISIT (RTC): 2 mos A Sooner FU phone or F2F appt may be scheduled in the interim if clinically. indicated. /shen/ Mary Son DNP, MSN, DANDY OPERATOR-BC ADVANCED PRACTICE NURSE Signed: 06/07/2024 14:28 06/11/2024 ADDENDUM STATUS: COMPLETED Collection time: Jun 09, 2024@11:48 Test Name Result Units Range --------- ------ ----- ----- uACR (STL) 103 H mg/g 0 - 29 Collection time: Jun 07, 2024@14:22 Test Name Result Units Range --------- ------ ----- ----- hsCRP 4.65 H mg/L 0 - 3.1 --------- ------ ----- ----- BRAIN NATRIURETIC PEPTIDE 198.9 H pg/mL 0 - 100 --------- ------ ----- ----- MAGNESIUM 1.7 mg/dL 1.6 - 2.6 PROCEDURE SUMMARY -Multivessel CAD RECOMMENDATIONS -CT surgery eval for CABG. -Conitnue aspirin and high intensity statin. -7 day event monitor as patient has a new type I Mobitz block with bifascicular block. Will mail letter and defer med titration since a Cardiac surgery is planned in the very near future.. Updated labs will be done before, during and after surgery.. /shen/ Mary Son DNP, MSN, DANDY OPERATOR-BC ADVANCED PRACTICE NURSE Signed: 06/22/2024 16:28 Receipt Acknowledged By: * AWAITING SIGNATURE * MANUEL BAIRD SHIRLEY A [facility]
--- OUTSIDE RECORDS SUMMARY | 2024-11-17 03:44 | XMS_ITS | Encounter Summary ---
Author Name [facility] [place] [facility] [place] Address [address] [place] [address] Care Team Providers Care Data Examination Clerk Name Role Phone MANUEL BAIRD Primary Care [...] PART A Apr 08, 2017 PART A [id number] ASHLEY WALKER PATIENT Selected Encounter This section includes the information on record at [facility] for the Encounter. Date/Time Encounter Type Encounter Description Reason Pro vider Source Jun 19, 2024 08:07 AM Outpatient Encounter EVENT (HISTORICAL) IHE Encounter [...] 20 appointments. The data comes from all [facility]. Appointment Date/Time Appointment Type Appointme nt Facility Name Jun 29, 2024 10:15 AM AMBULATORY - MEDICINE [facility] Jun 29, 2024 01:00 PM AMBULATORY - SURGERY [facility] Jul 03, 2024 10:30 AM AMBULATORY - MEDICINE [facility] Jul 14, 2024 12:54 PM AMBULATORY - SURGERY [facility] Jul 20, 2024 10:00 AM AMBULATORY - MEDICINE [facility] Aug 02, 2024 09:45 AM AMBULATORY - MEDICINE [facility] Aug 24, 2024 10:00 AM AMBULATORY - MEDICINE [facility] Aug 24, 2024 10:30 AM AMBULATORY - MEDICINE [facility] Aug 30, 2024 09:30 AM AMBULATORY - MEDICINE [facility] Aug 31, 2024 01:00 PM AMBULATORY - SURGERY [facility] Sep 21, 2024 01:30 PM AMBULATORY - MEDICINE [facility] Sep 22, 2024 11:00 AM AMBULATORY - MEDICINE [facility] Sep 29, 2024 12:30 PM AMBULATORY - MEDICINE [facility] Oct 02, 2024 09:30 AM AMBULATORY - MEDICINE [facility] Nov 20, 2024 10:30 AM AMBULATORY - SURGERY [facility] Nov 21, 2024 10:00 AM AMBULATORY - NONE [facility] Dec 11, 2024 10:30 AM AMBULATORY [...] of theEncounter. The data comes from all [facility]. Test Date/Time Test Type Test Details Facility Name Aug 02, 2024 12:00 AM Laboratory - Chemistry Order CBC BLOOD STAT SP [facility] Aug 02, 2024 12:00 AM Laboratory - Chemistry Order COMPREHENSIVE METABOLIC PANEL GREEN LI/HEP BLD/PLAS PLASMA SP [facility] Lab Results: +/- 30 days of the encounter This section includes the Chemistry and Hematology Lab Results on record with [facility] for the patient. Radiology Reports and Pathology Reports are provided separately, in subsequent sections. Lab Results This section contains the Chemistry/Hematology Results that were resulted 30 days before or 30 daysafter the date of the Encounter. Date/Time Source Result Type Result - Unit Interpretation Reference Range Comment Jul 17, 2024 08:02 AM [facility] BASIC METABOLIC PANEL Specimen Type: PLASMA Comment: No hemolysis noted. Ordering Provider: WELLINGTON SERNA Report Released Date/Time: Jun 07, 2024 01:43 PM Reporting Lab: [address] [address] Performing Lab: [address] [address] CREATININE 0.85 mg/dL 0.7-1.3 UREA NITROGEN 15.2 mg/dL 9.0-25.0 GLUCOSE 120 mg/dL H 72-99 SODIUM 141 meq/L 136-145 POTASSIUM 4.4 meq/L 3.5-5 CHLORIDE 107 meq/L 98-107 CARBON DIOXIDE 26 meq/L 22-31 CALCIUM 9.2 mg/dL 8.4-10.4 EGFR (CKD-EPI 2020) 92.3 >60 Jun 19, 2024 07:30 AM [facility] PT/INR NEW ([facility]) Specimen Type: PLASMA No comment entered. Ordering Provider: ROSE PITTS Report Released Date/Time: Jun 12, 2024 10:14 AM Reporting Lab: [address] [address] Performing Lab: [address] [address] PROTIME 13.3 s H 9.4-12.5 INR VALUE 1.2 {INR} Jun 19, 2024 07:30 AM [facility] BASIC METABOLIC PANEL Specimen Type: PLASMA Comment: K result may show a positive bias due to hemolysis. Specimen slightly hemolyzed. Ordering Provider: ROSE PITTS AEL Report Released Date/Time: Jun 12, 2024 10:14 AM Reporting Lab: [address] [address] Performing Lab: [address] [address] CREATININE 0.85 mg/dL 0.7-1.3 UREA NITROGEN 11.9 [...] Jun 12, 2024 10:14 AM Reporting Lab: [address] [address] Performing Lab: [address] [address] WBC 5.1 10*3/uL 3.6-11.2 RBC 5.31 10*6/uL [...] Specimen Type: BLOOD Comment: Test Performed by: [id number] Meter #: [id number] Ordering Provider: CARROLL HAGEN Report Released Date/Time: Jun 19, 2024 06:58 PM Reporting Lab: [address] [address] Performing Lab: [address] [address] GLUCOSE,BLOOD- poct (STL) 108 mg/dL H 72-99 Jun 09, 2024 11:48 AM [facility] MICRAL/CREAT PROFILE (STL) Specimen Type: URINE No comment entered. Ordering Provider: WELLINGTON SERNA Report Released Date/Time: Jun 07, 2024 01:44 PM Reporting Lab: [address] [address] Performing Lab: [address] [address] URINE ALBUMIN (PB-STL) 167.5 mg/L uACR (STL) 103 mg/g H 0-29 CREATININE URINE/OTHERS 163.4 mg/dL 63-166 Jun 07, 2024 02:22 PM [facility] BRAIN NATRIURETIC PEPTIDE Specimen Type: PLASMA No comment entered. Ordering Provider: WELLINGTON SERNA Report Released Date/Time: Jun 07, 2024 01:32 PM Reporting Lab: [address] [address] Performing Lab: [address] [address] BRAIN NATRIURETIC PEPTIDE 198.9 pg/mL H 0-100 Jun 07, 2024 02:22 PM [facility] hsCRP Specimen Type: SERUM No comment entered. Ordering Provider: WELLINGTON SERNA Report Released Date/Time: Jun 07, 2024 01:42 PM Reporting Lab: [address] [address] Performing Lab: [address] [address] hsCRP 4.65 mg/L H 0-3.1 Jun 07, 2024 02:22 PM [facility] MAGNESIUM Specimen Type: PLASMA No comment entered. Ordering Provider: WELLINGTON SERNA Report Released Date/Time: Jun 07, 2024 01:44 PM Reporting Lab: [address] [address] Performing Lab: [address] [address] MAGNESIUM 1.7 mg/dL 1.6-2.6 Jun 05, 2024 09:00 AM [facility] FSH (STL-MA) Specimen Type: SERUM Comment: Test Performed by [employer] [employer] [place], [address] [place] [address] Tommie Garcia M.D., Ph.D., Director of [employer] , [facility] [id number] Ordering Provider: EMILIA CALHOUN Report Released Date/Time: Jun 05, 2024 08:45 AM Reporting Lab: [address] [address] Performing Lab: [address] FSH (STL-MA) 5.5 m[IU]/mL 1.4-12.8 Jun 05, 2024 09:00 AM [facility] LUTEINIZING HORMONE Specimen Type: SERUM Comment: Test Performed by [employer], [employer] [place], [address] [place] [address] Tommie Garcia M.D., Ph.D., Director of Laboratories , [facility] [id number] Ordering Provider: EMILIA CALHOUN Report Released Date/Time: Jun 05, 2024 08:45 AM Reporting Lab: [facility] [address] [facility] [address] Performing Lab: [facility] [id number] [place] [address] LUTEINIZING HORMONE 2.7 m[IU]/mL 1.6-15.2 Jun 05, 2024 09:00 AM [facility] PROLACTIN (STL-Eff 08/15) Specimen Type: PLASMA No comment entered. Ordering Provider: EMILIA CALHOUN Report Released Date/Time: Jun 05, 2024 08:45 AM Reporting Lab: [facility] [address] [place] [address] Performing Lab: [address] [address] PROLACTIN (STL-Eff 08/15) 41.98 ng/mL H 3.5-19.4 Jun 05, 2024 09:00 AM [facility] FREE T4 (MA-PB) Specimen Type: SERUM No comment entered. Ordering Provider: EMILIA CALHOUN Report Released Date/Time: Jun 05, 2024 08:45 AM Reporting Lab: [facility] [address] [facility] [address] Performing Lab: [facility] [address] [place] [address] FREE T4 (MA-PB) 0.78 ng/mL 0.7-1.48 Jun 05, 2024 09:00 AM [facility] TSH (MA-PB) Specimen Type: SERUM No comment entered. Ordering Provider: EMILIA CALHOUN Report Released Date/Time: Jun 05, 2024 08:45 AM Reporting Lab: [facility] [address] [facility] [address] Performing Lab: [facility] [address] [place] [address] TSH 3.510 u[IU]/mL 0.47-5 Vital Signs: All taken on the encounter date This section contains inpatient and outpatient Vital Signs collected on the date of the Encounter. Date/Time Temperature Pulse Blood Pressure Respiratory Rate SP02 Pain Height Weight Body Mass Index Source Jun 19, 2024 01:55 PM 98.2 41 146/51 20 98 0 [facility] Jun 19, 2024 11:45 AM 98.2 50 98/58 18 97 0 [facility] Jun 19, 2024 10:45 AM 98.4 52 100/58 18 97 0 [facility] Jun 19, 2024 10:15 AM 98.4 50 104/65 18 97 0 [facility] Jun 19, 2024 09:45 AM 98.2 58 136/77 18 97 0 [facility] Social History: Smoking Status (Most current) and Tobacco Use (All prior to encounter date) This section includes the most current, and the historical, smoking and tobacco- related health factors from the [facility] facility where the Encounter took place. Current Smoking Status This section includes the most current smoking, or tobacco-related health factor, from the [facility] facility where the Encounter took place. Date/Time Current Smoking Status Comment Radhika goins Aug 11, 2016 10:34 AM QUIT TOBACCO >7 YEARS AGO [facility] Tobacco Use History This section includes a history of the smoking, or tobacco-related health factors, that were collected on or before the date of the Encounter. The data comes from the [facility] facility where the Encounter took place. Date/Time [...] NON-TOBACC O USER-HX OF USE [facility] Oct 06, 2006 09:30 AM TOBACCO TERMINATION STAGE [facility] Advance Directives: All historical and current Section Date Range: From patient's date of to the date document was created. This section includes ALL of a patient's completed or amended [facility] Advance and Rescinded Directives. The entries below indicate that a directive exists for the patient, but an actual copy is not included with this document. The data comes from all [facility] facilities. Date Advance Directives Provider Source Jan 19, 2017 ADVANCE DIRECTIVE DISCUSSION ERICK BARDALES [facility] Radiology Reports: +/- 30 days [...] the Encounter. The data comes from all [facility] treatment facilities. Date/Time Radiology Report Provider Source Jun 07, 2024 02:[address] CHEST W/CONTRAS T & 3D: CHET WALKER [id number] -1950 M Ex Date: JUN 07, 2024@14:29 Req Phys: JOHANA REDDY Loc: [facility] [place] [place] [facility] [place]: [facility] Service: [facility], [place], operated [facility], [address] [address] (Case [id number] COMPLETE) CT THORAX, DIAGNOSTIC, W/CONTRAS(CT Detailed) CPT:98349 Contrast Media : Non-ionic Iodinated Reason for Study: Shortness of breath (Case [id number] COMPLETE) UNLISTED CT PROCEDURE (CT Detailed) CPT:69035 CPT Modifiers : 52 REDUCED SERVICES Clinical History: Responsible Attending: Dr. Orantes Attending Contact Number: [phone] Resident Contact Number: CT chest, high resolution Allergies listed in CPRS chart: TRAMADOL Creatinine: CREATININE 0.87 mg/dL 03/06/2024 09:52 /eGFR: STL EGFR (within one year). CREATININE 0.87 mg/dL (03/06/24 09:52) Wt: 233.1 lb [105.73 kg] (05/17/2024 08:37) History of: Renal failure, chronic or acute renal disease: NO Report Status: Verified Date Reported: JUN 07, 2024 Date Verified: JUN 07, 2024 Manager Of Community Relations E-Sig:/ES/LISHA Ryanne UNDERWOODTOMAS Report: , [id number], [id number] INDICATION: Shortness of breath COMPARISON: None TECHNIQUE: [...] suggested. Primary Interpreting Staff: LISHA BRYANT, RADIOLOGIST (Manager Of Community Relations) /LISHA [facility] Jun 07, 2024 02:[address] ABD PEL W/CONT & 3D: CHET WALKER [id number] -1950 M Exm Date: JUN 07, 2024@14:28 Req Phys: JOHANA REDDY Loc: [facility]COL[facility]Y [facility] (Req'g Img Loc: [facility]-CT IMAGING [facility] Service: Unknown [facility], [address] [place] [address] (Case [id number] COMPLETE) CT ABDOMEN AND PELVIS W/CONTRAST (CT Detailed) CPT:66011 Contrast Media : Non-ionic Iodinated Reason for Study: enlarged spleen (Case 3137 COMPLETE) CT 3D RENDERING W INDEPENDENT WOR(CT Detailed) CPT:62663 Clinical History: Responsible Attending: Dr. Orantes Attending Contact Number: [phone] Resident Contact Number: spleenomegally, evaluation for liver, lymphadenopathy Allergies listed in CPRS chart: TRAMADOL Creatinine:CREATININE 0.87 mg/dL 03/06/2024 09:52 /eGFR: STL EGFR (within one year). CREATININE 0.87 mg/dL (03/06/24 09:52) Wt: 233.1 lb [105.73 kg] (05/17/2024 08:37) History of: Renal failure, chronic or acute renal disease: NO Report Status: Verified Date Reported: JUN 07, 2024 Date Verified: JUN 07, 2024 Manager Of Community Relations E-Sig:/ES/LISHA BRYANT Report: , [id number], [id number] INDICATION: Shortness of breath COMPARISON: None TECHNIQUE: [...] suggested. Primary Interpreting Staff: LISHA BRYANT, RADIOLOGIST (Manager Of Community Relations) /LISHA [facility]
--- OUTSIDE RECORDS SUMMARY | 2024-11-17 03:44 | XMS_ITS | Encounter Summary ---
Author Name [facility] [place] [facility] [place] Address [address] [place] [address] Care Team Providers Care Electrical Assembler Name Role Phone MANUEL BAIRD Primary Care [...] PART A Apr 08, 2017 PART A [id number] ASHLEY WALKER PATIENT Selected Encounter This section includes the information on record at [place] for the Encounter. Date/Time Encounter Type Encounter Description Reason Provider Source Jun 19, 2024 08:00 AM ROUTINE VENIPUNCTURE PRE-SURG EVAL ICD-10-CM I50.9 Heart failure, unspecified CARROLL HAGEN Nav Encounter Template Text not used by [place] Assessments - Encounter Diagnoses This section includes the primary and secondary diagnoses documented for the Encounter. Date/Time Primary/Secondary Diagnosis Diagnosis Name Provider Source Jun 20, 2024 03:56 PM PRIMARY Heart failure, unspecified CARROLL HAGEN [facility] Plan of Treatment: Future Appointments (+ 6 months) and Future Tests (+/- 45 days) The Plan of Treatment section includes future care activities for the patient from all [facility]. This section includes future appointments and future orders which are active, pending or scheduled. Future Appointments This section includes appointments that were scheduled to occur 6 months from the date of the Encounter, up to a maximum of 20 appointments. The data comes from all [facility]. Appointment Date/Time Appointment Type Appointme nt Facility Name Jun 29, 2024 10:15 AM AMBULATORY - MEDICINE [facility] Jun 29, 2024 01:00 PM AMBULATORY - SURGERY [facility] Jul 03, 2024 10:30 AM AMBULATORY - MEDICINE [facility] Jul 14, 2024 12:54 PM AMBULATORY - SURGERY [facility] Jul 20, 2024 10:00 AM AMBULATORY - MEDICINE [facility] Aug 02, 2024 09:45 AM AMBULATORY - MEDICINE [facility] Aug 24, 2024 10:00 AM AMBULATORY - MEDICINE [facility] Aug 24, 2024 10:30 AM AMBULATORY - MEDICINE [facility] Aug 30, 2024 09:30 AM AMBULATORY - MEDICINE [facility] Aug 31, 2024 01:00 PM AMBULATORY - SURGERY [facility] Sep 21, 2024 01:30 PM AMBULATORY - MEDICINE [facility] Sep 22, 2024 11:00 AM AMBULATORY - MEDICINE [facility] Sep 29, 2024 12:30 PM AMBULATORY - MEDICINE [facility] Oct 02, 2024 09:30 AM AMBULATORY - MEDICINE [facility] Nov 20, 2024 10:30 AM AMBULATORY - SURGERY [facility] Nov 21, 2024 10:00 AM AMBULATORY - NONE [facility] Dec 11, 2024 10:30 AM AMBULATORY MEDICINE [facility] Active, Pending, and Scheduled Orders This section includes a listing of several types of active, pending, and scheduled orders, including clinic medications orders, diagnostic test orders, procedure orders and consult orders; where the start date of the order is 45 days before the date of the Encounter or 45 days after the date of theEncounter. The data comes from all [place] treatment facilities. Test Date/Time Test Type Test Details Facility Name Aug 02, 2024 12:00 AM Laboratory - Chemistry Order CBC BLOOD STAT SP [facility] Aug 02, 2024 12:00 AM Laboratory - Chemistry Order COMPREHENSIVE METABOLIC PANEL GREEN LI/HEP BLD/PLAS PLASMA SP [facility] Lab Results: +/- 30 days of the encounter This section includes the Chemistry and Hematology Lab Results on record with [place] for the patient. Radiology Reports and Pathology Reports are provided separately, in subsequent sections. Lab Results This section contains the Chemistry/Hematology Results that were resulted 30 days before or 30 daysafter the date of the Encounter. Date/Time Source Result Type Result - Unit Interpretation Reference Range Comment Jul 17, 2024 08:02 AM [facility] BASIC METABOLIC PANEL Specimen Type: PLASMA Comment: No hemolysis noted. Ordering Provider: WELLINGTON SERNA Report Released Date/Time: Jun 07, 2024 01:43 PM Reporting Lab: [address] [address] Performing Lab: [address] [address] CREATININE 0.85 mg/dL 0.7-1.3 UREA NITROGEN 15.2 mg/dL 9.0-25.0 GLUCOSE 120 mg/dL H 72-99 SODIUM 141 meq/L 136-145 POTASSIUM 4.4 meq/L 3.5-5 CHLORIDE 107 meq/L 98-107 CARBON DIOXIDE 26 meq/L 22-31 CALCIUM 9.2 mg/dL 8.4-10.4 EGFR (CKD-EPI 2020) 92.3 >60 Jun 19, 2024 07:30 AM [facility] PT/INR NEW (STL-GA) Specimen Type: PLASMA No comment entered. Ordering Provider: ROSE PITTS Report Released Date/Time: Jun 12, 2024 10:14 AM Reporting Lab: [address] [address] Performing Lab: [address] [address] PROTIME 13.3 s H 9.4-12.5 INR VALUE 1.2 {INR} Jun 19, 2024 07:30 AM [facility] BASIC METABOLIC PANEL Specimen Type: PLASMA Comment: K result may show a positive bias due to hemolysis. Specimen slightly hemolyzed. Ordering Provider: ROSE PITTS AEL Report Released Date/Time: Jun 12, 2024 10:14 AM Reporting Lab: [address] [address] Performing Lab: [place] [id number] CREATININE 0.85 mg/dL 0.7-1.3 UREA NITROGEN 11.9 mg/dL 9.0-25.0 GLUCOSE 106 mg/dL H 72-99 SODIUM 141 meq/L 136-145 POTASSIUM 4.4 meq/L 3.5-5 CHLORIDE 110 meq/L H 98-107 CARBON DIOXIDE 22 meq/L 22-31 CALCIUM 9.9 mg/dL 8.4-10.4 EGFR (CKD-EPI 2020) 92.3 >60 Jun 19, 2024 07:30 AM [facility] CBC Specimen Type: BLOOD No comment entered. Ordering Provider: ROSE PITTS AEL Report Released Date/Time: Jun 12, 2024 10:14 AM Reporting Lab: [address] [address] Performing Lab: [address] [address] WBC 5.1 10*3/uL 3.6-11.2 RBC 5.31 10*6/uL [...] 2.3 1.0-7.0 Jun 19, 2024 07:29 AM [facility] GLUCOSE,BLOOD-poct (STL) Specimen Type: BLOOD Comment: Test Performed by: [id number] Meter #: [id number] Ordering Provider: CARROLL HAGEN Report Released Date/Time: Jun 19, 2024 06:58 PM Reporting Lab: [address] [address] Performing Lab: [address] [address] GLUCOSE,BLOOD- poct (STL) 108 mg/dL H 72-99 Jun 09, 2024 11:48 AM [facility] MICRAL/CREAT PROFILE (STL) Specimen Type: URINE No comment entered. Ordering Provider: WELLINGTON SERNA Report Released Date/Time: Jun 07, 2024 01:44 PM Reporting Lab: [address] [address] Performing Lab: [address] [address] URINE ALBUMIN (PB-STL) 167.5 mg/L uACR (STL) 103 mg/g H 0-29 CREATININE URINE/OTHERS 163.4 mg/dL 63-166 Jun 07, 2024 02:22 PM [facility] BRAIN NATRIURETIC PEPTIDE Specimen Type: PLASMA No comment entered. Ordering Provider: WELLINGTON SERNA Report Released Date/Time: Jun 07, 2024 01:32 PM Reporting Lab: [place] [id number] [facility] [address] Performing Lab: [place] [address] [facility] [address] BRAIN NATRIURETIC PEPTIDE 198.9 pg/mL H 0-100 Jun 07, 2024 02:22 PM [facility] hsCRP Specimen Type: SERUM No comment entered. Ordering Provider: WELLINGTON SERNA Report Released Date/Time: Jun 07, 2024 01:42 PM Reporting Lab: [place] [address] [facility] [address] Performing Lab: [address] [address] hsCRP 4.65 mg/L H 0-3.1 Jun 07, 2024 02:22 PM [facility] MAGNESIUM Specimen Type: PLASMA No comment entered. Ordering Provider: WELLINGTON SERNA Report Released Date/Time: Jun 07, 2024 01:44 PM Reporting Lab: [place] [address] [facility] [address] Performing Lab: [address] [address] MAGNESIUM 1.7 mg/dL 1.6-2.6 Jun 05, 2024 09:00 AM [facility] FSH (STL-MA) Specimen Type: SERUM Comment: Test Performed by [facility], [employer] [facility], [address] [place] [address] Tommie Garcia M.D., Ph.D., Director of Laboratories , [place] [id number] Ordering Provider: EMILIA CALHOUN Report Released Date/Time: Jun 05, 2024 08:45 AM Reporting Lab: [address] [address] Performing Lab: [place] [id number] [facility] FSH (STL-MA) 5.5 m[IU]/mL 1.4-12.8 Jun 05, 2024 09:00 AM [facility] LUTEINIZING HORMONE Specimen Type: SERUM Comment: Test Performed by [facility], [employer] [facility], [address] [place], [place] Tommie Garcia M.D., Ph.D., Director of Laboratories , [facility] [id number] Ordering Provider: EMILIA CALHOUN Report Released Date/Time: Jun 05, 2024 08:45 AM Reporting Lab: [facility] [address] [facility] [address] Performing Lab: [facility] [address] [facility] LUTEINIZING HORMONE 2.7 m[IU]/mL 1.6-15.2 Jun 05, 2024 09:00 AM [facility] PROLACTIN (STL-Eff 08/15) Specimen Type: PLASMA No comment entered. Ordering Provider: EMILIA CALHOUN Report Released Date/Time: Jun 05, 2024 08:45 AM Reporting Lab: [facility] [address] [facility] [address] Performing Lab: [facility] [address] [facility] [address] PROLACTIN (STL-Eff 08/15) 41.98 ng/mL H 3.5-19.4 Jun 05, 2024 09:00 AM [facility] TSH (MA-PB) Specimen Type: SERUM No comment entered. Ordering Provider: EMILIA CALHOUN Report Released Date/Time: Jun 05, 2024 08:45 AM Reporting Lab: [facility] [address] [facility] [address] Performing Lab: [facility] [address] [facility] [address] TSH 3.510 u[IU]/mL 0.47-5 Jun 05, 2024 09:00 AM [facility] FREE T4 (MA-PB) Specimen Type: SERUM No comment entered. Ordering Provider: EMILIA CALHOUN Report Released Date/Time: Jun 05, 2024 08:45 AM Reporting Lab: [facility] [address] [facility] [address] Performing Lab: [facility] [address] [facility] [address] FREE T4 (MA-PB) 0.78 ng/mL 0.7-1.48 Vital Signs: All taken on the encounter date This section contains inpatient and outpatient Vital Signs collected on the date of the Encounter. Date/Time Temperature Pulse Blood Pressure Respiratory Rate SP02 Pain Height Weight Body Mass Index Source Jun 19, 2024 01:55 PM 98.2 41 146/51 20 98 0 [facility] Jun 19, 2024 11:45 AM 98.2 50 98/58 18 97 0 [facility] Jun 19, 2024 10:45 AM 98.4 52 100/58 18 97 0 [facility] Jun 19, 2024 10:15 AM 98.4 50 104/65 18 97 0 [facility] Jun 19, 2024 09:45 AM 98.2 58 136/77 18 97 0 [facility] Social History: Smoking Status (Most current) and Tobacco Use (All prior to encounter date) This section includes the most current, and the historical, smoking and tobacco- related health factors from the [place] facility where the Encounter took place. Current Smoking Status This section includes the most current smoking, or tobacco-related health factor, from the [place] facility where the Encounter took place. Date/Time Current Smoking Status Comment Radhika goins Aug 11, 2016 10:34 AM QUIT TOBACCO >7 YEARS AGO [facility] Tobacco Use History This section includes a history of the smoking, or tobacco-related health factors, that were collected on or before the date of the Encounter. The data comes from the [place] facility where the Encounter took place. Date/Time Smoking Status/Tobacco Use Comment Juan borden Sep 30, 2015 10:12 AM QUIT TOBACCO >7 YEARS AGO [facility] Oct 29, 2014 10:23 AM QUIT TOBACCO >7 YEARS AGO [facility] Dec 27, 2013 01:27 PM QUIT TOBACCO >7 YEARS AGO [facility] Feb 24, 2013 02:01 PM LIFETIME NON-USER OF TOBACCO [facility] Feb 11, 2009 10:09 AM QUIT TOBACCO >7 YEARS AGO [facility] Oct 06, 2006 09:30 AM CURRENT NON-TOBACC O USER-HX OF USE [facility] Oct 06, 2006 09:30 AM TOBACCO TERMINATION STAGE [facility] Advance Directives: All historical and current Section Date Range: From patient's date of to the date document was created. This section includes ALL of a patient's completed or amended [place] Advance and Rescinded Directives. The entries below indicate that a directive exists for the patient, but an actual copy is not included with this document. The data comes from all [place] facilities. Date Advance Directives Provider Source Jan 19, 2017 ADVANCE DIRECTIVE DISCUSSION ERICK BARDALES [facility] Radiology Reports: +/- 30 days [...] the Encounter. The data comes from all [place] treatment facilities. Date/Time Radiology Report Provider Source Jun 07, 2024 02:[address] CHEST W/CONTRAS T & 3D: CHET WALKER [id number] -1950 Ex Date: JUN 07, 2024@14:29 Req Phys: JOHANA REDDY Loc: YASH-ONCOLOGY KANDI (Req'g Img Loc: YASH-CT IMAGING YASH Service: [facility], [place], [facility] [address] [place] [address] (Case [id number] COMPLETE) CT THORAX, DIAGNOSTIC, W/CONTRAS(CT Detailed) CPT:74522 Contrast Media : Non-ionic Iodinated Reason for Study: Shortness of breath (Case [id number] COMPLETE) UNLISTED CT PROCEDURE (CT Detailed) CPT:50234 CPT Modifiers : 52 REDUCED SERVICES Clinical History: Responsible Attending: Dr. Orantes Attending Contact Number: [phone] Resident Contact Number: CT chest, high resolution Allergies listed in CPRS chart: TRAMADOL Creatinine: CREATININE 0.87 mg/dL 03/06/2024 09:52 /eGFR: STL EGFR (within one year). CREATININE 0.87 mg/dL (03/06/24 09:52) Wt: 233.1 lb [105.73 kg] (05/17/2024 08:37) History of: Renal failure, chronic or acute renal disease: NO Report Status: Verified Date Reported: JUN 07, 2024 Date Verified: JUN 07, 2024 Lead Pharmacy Technician E-Sig:/ES/LISHA BRYANT Report: , [id number], [id number] INDICATION: Shortness of breath COMPARISON: None TECHNIQUE: [...] Primary Interpreting Staff: LISHA BRYANT, RADIOLOGIST (Lead Pharmacy Technician) /LISHA AVITIA [facility] Jun 07, 2024 02:[address] ABD PEL W/CONT & 3D: CHET WALKER [id number] -1950 M Exm Date: JUN 07, 2024@14:28 Req Phys: JOHANA REDDY Loc: YASH-ONCOLOGY KANDI (Req'g Img Loc: YASH-CT IMAGING YASH Service: Unknown [facility] [address] [place] [address] (Case [id number] COMPLETE) CT ABDOMEN AND PELVIS W/CONTRAST (CT Detailed) CPT:24647 Contrast Media : Non-ionic Iodinated Reason for Study: enlarged spleen (Case 3137 COMPLETE) CT 3D RENDERING W INDEPENDENT WOR(CT Detailed) CPT:13503 Clinical History: Responsible Attending: Dr. Orantes Attending Contact Number: [id number] Resident Contact Number: spleenomegally, evaluation for liver, lymphadenopathy Allergies listed in CPRS chart: TRAMADOL Creatinine:CREATININE 0.87 mg/dL 03/06/2024 09:52 /eGFR: STL EGFR (within one year). CREATININE 0.87 mg/dL (03/06/24 09:52) Wt: 233.1 lb [105.73 kg] (05/17/2024 08:37) History of: Renal failure, chronic or acute renal disease: NO Report Status: Verified Date Reported: JUN 07, 2024 Date Verified: JUN 07, 2024 Lead Pharmacy Technician E-Sig:/ES/LISHA BRYANT Report: , [id number], [id number] INDICATION: Shortness of breath COMPARISON: None TECHNIQUE: [...] Primary Interpreting Staff: LISHA BRYANT, RADIOLOGIST (Lead Pharmacy Technician) /LISHA AVITIA [facility] Encounter Notes: All associated encounter notes This section contains the clinical notes associated to the Encounter. Date/Time Encounter Note(s) Provider Source Jun 19, 2024 07:46 AM NURSING NOTE: LOCAL TITLE: [facility] NSG IV INSERTION AND MAINTENANCE STANDARD TITLE: NURSING NOTE DATE OF NOTE: JUN 19, 2024@07:46 ENTRY DATE: JUN 19, 2024@07:46:41 AUTHOR: CONNER MICHEL COSIGNER: URGENCY: STATUS: COMPLETED Version 2.2 Charting in accordance with [place] APPROVED [place] STANDARD ([place]) ACUTE INPATIENT/REHABILITATION NURSING ADMISSION SCREENING, ASSESSMENT, AND STANDARDS OF CARE IV Line Insertion and Maintenance Peripheral IV Line #1: Insertion: Date/Time: Jun@07:46 Inserted by (name): Conner Location: Right, Hand Gauge: 20 /es/ CONNER DOMINGUEZ RN REGISTERED NURSE Signed: 06/19/2024 07:47 CONNER MICHEL [facility] Jun 19, 2024 07:02 AM SURGERY NURSING DE OCEDURE NOTE: LOCAL TITLE: MINDY AETC PREOPERATIVE-PREPROCEDURAL STL STANDARD TITLE: SURGERY NURSING PROCEDURE NOTE DATE OF NOTE: JUN 19, 2024@07:02 ENTRY DATE: JUN 19, 2024@07:02:16 AUTHOR: CARROLL HAGEN COSIGNER: URGENCY: STATUS: COMPLETED [facility]Y AETC PREOPERATIVE-PREPROCEDURAL STL Has ADDENDA AETC PRE-OPERATIVE/PRE-PROCEDURA L ASSESSMENT TEST Procedure:Cardiac Catheterization Service:Cardiology ARRIVAL TIME: Jun@06:10 VITAL SIGNS: Temperature:98.1 F [36.7 C] (06/19/2024 06:20) Blood Pressure:161/74 (06/19/2024 06:20) Pulse:48 (06/19/2024 06:20) Respirations:20 (06/19/2024 06:20) 97% (06/19/2024 06:20) Weight:234 lb [106.14 kg] (06/19/2024 06:20) Responsible Libertarian(Auto Service Instructor) Name:Michelle Contact number: [phone] Current residence Home NPO since Midnight Yes Allergies: TRAMADOL Are you taking any blood thinners:No If yes, comment:Aspirin 81mg po-Pt states he did not start taking aspirin Medications taken since Midnight:Yes If Yes, list medications:pt states he took his blood pressure, heart, and medicaiotn for acid reflux this morning at 4:30am History of illicit drug use? No History of cancer diagnosis? Yes If yes, comment:Pituitary History of radiation therapy to planned surgical field(s)?No History of sleep apnes?Yes If yes, do you currently use CPAP machine? YesComment:CPAP machine brought with pt Vision Aids Eyeglasses Comment:removed Dentures:No Hearing Aides:No Ambulatory Aides:Yes Cane Personal Belongings Comment:at bedside Labs completed:Yes Diabetes:Yes Do you currently have any open or draining wounds? No If yes how often: Comment:pt has 2 scabbed areas on right lower leg. Pain No Do you have a history of tobacco use?Yes If yes how often: Comment:Pt states he quit smoking cigarettes 40+ years ago Do you have an Advance Directive?No Nursing care plan STANDARD OF CARE / PRACTICE INITIAL NURSING DIAGNOSIS: AETC Alteration in Comfort and Knowledge Related to: Invasive procedure: Cardiac Catheterization EXPECTED OUTCOMES: Patient Will: Verbalize an understanding of procedure. Target Date:Jun Verbalize effective use of pain medication. Target Date:Jun Be free of complications post-procedure. Target Date:Jun Verbalize knowledge of discharge instructions and follow-up care. Target Date:Jun NURSING INTERVENTIONS: PHYSIOLOGICAL 1. Assess and monitor vital signs and respiratory status pre and post-procedure. INITIATED 2. Assess need for PT/OT instruction prior to procedure (i.e.,crutch training). INITIATED 3. Assess incision site/dressing for drainage, bleeding, hematoma, and site pain post-procedure. INITIATED 4. Initiate appropriate wound care post-procedure. INITIATED 5. Maintain IV access and parenteral infusions pre and post- procedure. INITIATED 6. Assess post-procedure for adequate oral intake, urinary elimination, and return of prior motor function. INITIATED COMFORT 7. Monitor for pain (location, intensity, frequency and precipitating factors). INITIATED 8. Administer, evaluate and document the effectiveness of pain medication. INITIATED SAFETY 9. Keep call light within reach and reinforce calling for assistance as needed. INITIATED 10. Explain and reinforce smoking policy. INITIATED 11. Other: INITIATED INFECTION CONTROL 12. Maintain Standard Precautions and explain need to patient/significant others. INITIATED EQUIPMENT NEEDS 13. Assess and provide equipment/supplies required to provide safe patient care. INITIATED KNOWLEDGE (PATIENT EDUCATION) 14. Provide teaching specific to patient's needs: NPO status IV therapy Pain management Early mobility Turning, coughing and deep breathing Incentive spirometer MALISSA hose Other: INITIATED 15. Instruct patient/significant other on homecare requirements. INITIATED 16. Signs and symptoms to report to health care team. INITIATED PSYCHOSOCIAL / FUNCTIONAL 17. Encourage feedback related to patient's expectations/concerns related to procedure. INITIATED 18. Assess patient/significant other's ability to manage and comply with discharge instructions. INITIATED DISCHARGE PLANNING 19. Assure appropriate transportation available upon discharge. INITIATED 20. Encourage patient to keep all follow-up clinic appointments. INITIATED 21. Continue discharge planning/aftercare with patient/significant other using interdisciplinary approach: X Physician/Service: Cardiology PT OT Community Support Groups: Other: INITIATED 22. Other interventions specific to patient: INITIATED THE ABOVE EXPECTED OUTCOMES (GOALS) HAVE BEEN MUTUALLY SET WITH: Patient X Physician/Service: Cardiology PT OT Community Support Groups: Other: INITIATED /shen/ CARROLL HAGEN REGISTERED NURSE Signed: 06/19/2024 07:09 06/19/2024 ADDENDUM STATUS: COMPLETED 06:10am-Pt states to call his son in case of an emergency. Gil [phone] /shen/ CARROLL HAGEN REGISTERED NURSE Signed: 06/19/2024 07:10 06/19/2024 ADDENDUM STATUS: COMPLETED 0751 Patient left 4N to [facility], via pink chair with escort. Belongings at bedside. Awaiting patient's return. /shen/ CONNER DOMINGUEZ RN REGISTERED NURSE Signed: 06/19/2024 07:54 06/19/2024 ADDENDUM STATUS: COMPLETED Blood sugar 103 /shen/ CONNER DOMINGUEZ RN REGISTERED NURSE Signed: 06/19/2024 07:57 06/19/2024 ADDENDUM STATUS: COMPLETED 09:45am-Returned from [place]. Pt assisted up to bathroom,voided without difficulty, gait steady. Returned to sit on side of bed.VSS.Denies pain. Breakfast served to pt. TR band to right wrist in place over right radial puncture site. CL staff states that pt had a few attempts to get radial access. Dressing to right wrist dry/intact. Will monitor. Right radial pulse palpable.Right hand/fingers warm, color WNL, capillary refill <3 seconds. Call light within reach. /shen/ CARROLL HAGEN REGISTERED NURSE Signed: 06/19/2024 10:05 06/19/2024 ADDENDUM STATUS: COMPLETED 11:40am-3ml of air removed from TR band. No bleeding or hematoma noted. Suzie Romero Cardiology AUTO JOB ESTIMATOR) at bedside to discuss findings and plan of care. 11:55am-3ml of air removed from TR band. No bleeding or hematoma noted. 12:30pm-This RN returned from lunch. Tegaderm/2x2 over right radial puncture site dry/intat. No bleeding or hematoma noted. Pt denies pain. 12:45pm-To vascular lab for carotid ultrasound via chair with 4N staff. Pt stable. Dressing to right radial puncture site remains dry/intact. No bleeding or hematoma noted. 13:20-Returned from vascular lab. Assisted pt from chair into bed. Dressing to right radial puncture site remains dry/intact. No bleeding or hematoma noted. /camryn HAGEN REGISTERED NURSE Signed: 06/19/2024 13:40 06/19/2024 ADDENDUM STATUS: COMPLETED 13:50-Spoke with Suzie Rudolph. Cardiac surgeon will be here soon to talk with pt. /camryn PHILLIPS NURSE Signed: 06/19/2024 13:53 06/19/2024 ADDENDUM STATUS: COMPLETED 13:55-VSS. Cardiac surgeon/Suzie Rudolph, AUTO JOB ESTIMATOR at bedside to talk with pt. /camryn PHILLIPS NURSE Signed: 06/19/2024 13:58 06/19/2024 ADDENDUM STATUS: COMPLETED 14:20-Discharge instructions reviewed and given to pt, verbalizes understanding. Pt called his friend for a ride home. Dressing to right wrist remains dry/intact, soft. No bleeding or hematoma noted. Call light within reach. /camryn HAGEN REGISTERED NURSE Signed: 06/19/2024 14:23 06/19/2024 ADDENDUM STATUS: COMPLETED 14:40-Friend here to drive pt home. Transport here to to take pt to front of hospital. Pt discharged. Right wrist remains soft, dressing dry/intat. No bleeding or hematoma noted. /camryn HAGEN REGISTERED NURSE Signed: 06/19/2024 14:41 06/19/2024 ADDENDUM STATUS: COMPLETED AETC DISCHARGE NURSING DIAGNOSIS: AETC Alteration in Comfort and Knowledge Related to: Invasive procedure: Cardiac Catheterization EXPECTED OUTCOMES MET BY PATIENT: Verbalizes an understanding of procedure. , Verbalizes effective use of pain medication. , Is free of complications post-procedure., Verbalizes knowledge of discharge instructions and follow-up care., Patient/significant other demonstrates procedures / skills for effective home care., Decreased level of anxiety related to discharge/home care achieved. Comment: ASSESSMENT: Patient is awake and oriented: Yes Vital signs stable: Yes Temperature < 101 F: Yes Wound site stable: Yes Tolerates fluids: Yes Minimal nausea: Yes Able to urinate: Yes Able to ambulate: Yes Patient is free of dyspnea: Yes Patient is free of pain: Yes Pain Score:0 Comment: DISCHARGE: Discharge Summary Date/Time:Jun@14:40 Discharge instruction sheet given to patient: Yes Patient instructed on:Activity,diet,meds,right wrist post procedure care,s/s and interventions of post cath complications. Mode of discharge: wheelchair Accompanied by: Family member, Verbalized understanding of plan of care Follow-up appointment: Clinic: Cardiology Date/Time: /shen/ CARROLL HAGEN REGISTERED NURSE Signed: 06/19/2024 14:43 CARROLL HAGEN [facility]
--- OUTSIDE RECORDS SUMMARY | 2024-11-17 03:44 | XMS_ITS | Encounter Summary ---
Author Name [facility] [place] [facility] [place] [facility] [place] Address [address] [place] [address] Care Team Providers Care Outreach And Education Social Worker Name Role Phone MANUEL BAIRD Primary Care [...] PART A Apr 08, 2017 PART A [id number] ASHLEY WALKER PATIENT Selected Encounter This section includes the information on record at [place] for the Encounter. Date/Time Encounter Type Encounter Description Reason Provider Source Jun 09, 2024 01:00 PM OFFICE O/P EST LOW 20 MIN OPTOMETRY ICD-10-CM H25.813 Combined forms of age-related cataract, bilateral SCHAFERS,ALLIS ON E IHE Encounter Template Text not used by [facility] Assessments - Encounter Diagnoses This section includes the primary and secondary diagnoses documented for the Encounter. 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 This section includes future appointments and future orders which are active, pending or scheduled. Future Appointments This section includes appointments that were scheduled to occur 6 months from the date of the Encounter, up to a maximum of 20 appointments. The data comes from all [place] treatment facilities. Appointment Date/Time Appointment Type Appointme nt Facility Name Jun 19, 2024 07:00 AM AMBULATORY - MEDICINE [facility] Jun 19, 2024 08:00 AM AMBULATORY - NONE [facility] Jun 29, 2024 10:15 AM AMBULATORY - MEDICINE [facility] Jun 29, 2024 01:00 PM AMBULATORY - SURGERY [facility] Jul 03, 2024 10:30 AM AMBULATORY - MEDICINE [facility] Jul 14, 2024 12:54 PM AMBULATORY - SURGERY [facility] Jul 20, 2024 10:00 AM AMBULATORY - MEDICINE [facility] Aug 02, 2024 09:45 AM AMBULATORY - MEDICINE [facility] Aug 24, 2024 10:00 AM AMBULATORY - MEDICINE [facility] Aug 24, 2024 10:30 AM AMBULATORY - MEDICINE [facility] Aug 30, 2024 09:30 AM AMBULATORY - MEDICINE [facility] Aug 31, 2024 01:00 PM AMBULATORY - SURGERY [facility] Sep 21, 2024 01:30 PM AMBULATORY - MEDICINE [facility] Sep 22, 2024 11:00 AM AMBULATORY - MEDICINE [facility] Sep 29, 2024 12:30 PM AMBULATORY - MEDICINE [facility] Oct 02, 2024 09:30 AM AMBULATORY - MEDICINE [facility] Nov 20, 2024 10:30 AM AMBULATORY - SURGERY [facility] Nov 21, 2024 10:00 AM AMBULATORY - NONE [facility] L[facility] Hirsch [facility] Lab Results: +/- 30 days of the encounter This section includes the Chemistry and Hematology Lab Results on record with [place] for the patient. Radiology Reports and Pathology Reports are provided separately, in subsequent sections. Lab Results This section contains the Chemistry/Hematology Results that were resulted 30 days before or 30 daysafter the date of the Encounter. Date/Time Source Result Type Result - Unit Interpretation Reference Range Comment Jun 19, 2024 07:30 AM [facility] PT/INR NEW (STL-DE) Specimen Type: PLASMA No comment entered. Ordering Provider: ROSE PITTS Report Released Date/Time: Jun 12, 2024 10:14 AM Reporting Lab: [facility] [address] [place] [phone] Performing Lab: [address] [address] PROTIME 13.3 s H 9.4-12.5 INR VALUE 1.2 {INR} Jun 19, 2024 07:30 AM [facility] BASIC METABOLIC PANEL Specimen Type: PLASMA Comment: K result may show a positive bias due to hemolysis. Specimen slightly hemolyzed. Ordering Provider: ROSE PITTS Report Released Date/Time: Jun 12, 2024 10:14 AM Reporting Lab: [address] [address] Performing Lab: [address] [address] CREATININE 0.85 mg/dL 0.7-1.3 UREA NITROGEN 11.9 mg/dL 9.0-25.0 GLUCOSE 106 mg/dL H 72-99 SODIUM 141 meq/L 136-145 POTASSIUM 4.4 meq/L 3.5-5 CHLORIDE 110 meq/L H 98-107 CARBON DIOXIDE 22 meq/L 22-31 CALCIUM 9.9 mg/dL 8.4-10.4 EGFR (CKD-EPI 2020) 92.3 >60 Jun 19, 2024 07:30 AM [facility] CBC Specimen Type: BLOOD No comment entered. Ordering Provider: ROSE PITTS Report Released Date/Time: Jun 12, 2024 10:14 AM Reporting Lab: [address] [address] Performing Lab: [address] [address] WBC 5.1 10*3/uL 3.6-11.2 RBC 5.31 10*6/uL [...] 2.3 1.0-7.0 Jun 19, 2024 07:29 AM [facility] GLUCOSE,BLOOD-poct (STL) Specimen Type: BLOOD Comment: Test Performed by: [id number] Meter #: [id number] Ordering Provider: CARROLL HAGEN Report Released Date/Time: Jun 19, 2024 06:58 PM Reporting Lab: [address] [address] Performing Lab: [address] [address] GLUCOSE,BLOOD-p oct (STL) 108 mg/dL H 72-99 Jun 09, 2024 11:48 AM [facility] MICRAL/CREAT PROFILE (STL) Specimen Type: URINE No comment entered. Ordering Provider: WELLINGTON SERNA Report Released Date/Time: Jun 07, 2024 01:44 PM Reporting Lab: [facility] [address] [place] [phone] Performing Lab: [facility] [address] [place] [phone] URINE ALBUMIN (PB-STL) 167.5 mg/L uACR (STL) 103 mg/g H 0-29 CREATININE URINE/OTHERS 163.4 mg/dL 63-166 Jun 07, 2024 02:22 PM [facility] hsCRP Specimen Type: SERUM No comment entered. Ordering Provider: WELLINGTON SERNA Report Released Date/Time: Jun 07, 2024 01:42 PM Reporting Lab: [address] [address] Performing Lab: [address] [address] hsCRP 4.65 mg/L H 0-3.1 Jun 07, 2024 02:22 PM [facility] BRAIN NATRIURETIC PEPTIDE Specimen Type: PLASMA No comment entered. Ordering Provider: WELLINGTON SERNA Report Released Date/Time: Jun 07, 2024 01:32 PM Reporting Lab: [address] [address] Performing Lab: [address] [address] BRAIN NATRIURETIC PEPTIDE 198.9 pg/mL H 0-100 Jun 07, 2024 02:22 PM [facility] MAGNESIUM Specimen Type: PLASMA No comment entered. Ordering Provider: WELLINGTON SERNA Report Released Date/Time: Jun 07, 2024 01:44 PM Reporting Lab: [place] [address] [facility] [address] Performing Lab: [address] [address] MAGNESIUM 1.7 mg/dL 1.6-2.6 Jun 05, 2024 09:00 AM [facility] FSH (L-MA) Specimen Type: SERUM Comment: Test Performed by [facility] [place], [employer] [facility] [place], [address] [place] [address] Tommie Garcia M.D., Ph.D., Director of Laboratories , CLIA [id number] Ordering Provider: EMILIA CALHOUN Report Released Date/Time: Jun 05, 2024 08:45 AM Reporting Lab: [address] [address] Performing Lab: [address] FSH (L-MA) 5.5 m[IU]/mL 1.4-12.8 Jun 05, 2024 09:00 AM [facility] LUTEINIZING HORMONE Specimen Type: SERUM Comment: Test Performed by [facility], [employer], [address] [place] [address] Tmomie Garcia M.D., Ph.D., Director of Laboratories , CLIA [id number] Ordering Provider: EMILIA CALHOUN Report Released Date/Time: Jun 05, 2024 08:45 AM Reporting Lab: [address] [address] Performing Lab: [address] LUTEINIZING HORMONE 2.7 m[IU]/mL 1.6-15.2 Jun 05, 2024 09:00 AM [facility] PROLACTIN (STL-Eff 08/15) Specimen Type: PLASMA No comment entered. Ordering Provider: EMILIA CALHOUN Report Released Date/Time: Jun 05, 2024 08:45 AM Reporting Lab: [address] [address] Performing Lab: [address] [place] [address] PROLACTIN (STL-Eff 08/15) 41.98 ng/mL H 3.5-19.4 Jun 05, 2024 09:00 AM [facility] TSH (MA-PB) Specimen Type: SERUM No comment entered. Ordering Provider: EMILIA CALHOUN Report Released Date/Time: Jun 05, 2024 08:45 AM Reporting Lab: [address] [address] Performing Lab: [address] [address] TSH 3.510 u[IU]/mL 0.47-5 Jun 05, 2024 09:00 AM [facility] FREE T4 (MA-PB) Specimen Type: SERUM No comment entered. Ordering Provider: EMILIA CALHOUN Report Released Date/Time: Jun 05, 2024 08:45 AM Reporting Lab: [address] [address] Performing Lab: [address] [address] FREE T4 (MA-PB) 0.78 ng/mL 0.7-1.48 May 17, 2024 10:20 AM [facility] JAK2 MUTATION (STL) Specimen Type: PLASMA Comment: A JAK2 [id number] mutation is not detected. No mutation is detected in exon 12 of JAK2. Ordering Provider: JONAHTON CHAU Report Released Date/Time: May 17, 2024 09:56 AM Reporting Lab: [place] [address] [facility] [address] Performing Lab: [facility] [address] [facility] JAK2 MUTATION (STL) NOT DETECTED NOT DETECTED May 17, 2024 10:20 AM [facility] LDH Specimen Type: PLASMA Comment: No hemolysis noted. Ordering Provider: JONATHON CHAU Report Released Date/Time: May 17, 2024 09:56 AM Reporting Lab: [facility] [address] [facility] [address] Performing Lab: [facility] [address] [facility] [address] LDH 272 U/L H 125-243 May 17, 2024 10:20 AM [facility] HAPTOGLOBIN (STL) Specimen Type: PLASMA Comment: No hemolysis noted. Ordering Provider: JONATHON CHAU Report Released Date/Time: May 17, 2024 09:56 AM Reporting Lab: [facility] [address] [place] [phone] Performing Lab: [facility] [address] [place] [phone] HAPTOGLOBIN (STL) 94 mg/dL 44-215 May 17, 2024 10:20 AM [facility] GGT GAMMA-GT Specimen Type: PLASMA Comment: No hemolysis noted. Ordering Provider: JONATHON CHAU Report Released Date/Time: May 17, 2024 09:56 AM Reporting Lab: [facility] [address] [facility] [address] Performing Lab: [facility] [address] [place] [phone] GGT GAMMA-GT 81 [IU]/L H 12-64 May 17, 2024 10:20 AM [facility] COMPREHENSIVE METABOLIC PANEL Specimen Type: PLASMA Comment: No hemolysis noted. Ordering Provider: JONATHON CHAU Report Released Date/Time: May 17, 2024 09:56 AM Reporting Lab: [facility] [address] [place] [phone] Performing Lab: [facility] [address] [place] [phone] CREATININE 1.05 mg/dL 0.7-1.3 UREA NITROGEN 16.4 [...] 75.4 >60 May 17, 2024 10:20 AM [facility] CBC Specimen Type: BLOOD No comment entered. Ordering Provider: JONATHON CHAU Report Released Date/Time: May 17, 2024 09:56 AM Reporting Lab: [facility] [address] [facility] [address] Performing Lab: [facility] [address] [facility] [address] WBC 5.0 10*3/uL 3.6-11.2 RBC 5.01 10*6/uL [...] and tobacco- related health factors from the [place] facility where the Encounter took place. Current Smoking Status This section includes the most current smoking, or tobacco-related health factor, from the [place] facility where the Encounter took place. Date/Time Current Smoking Status Comment Radhika ity Aug 11, 2016 10:34 AM QUIT TOBACCO >7 YEARS AGO [facility] Tobacco Use History This section includes a history of the smoking, or tobacco-related health factors, that were collected on or before the date of the Encounter. The data comes from the [place] facility where the Encounter took place. Date/Time Smoking Status/Tobacco Use Comment F acility Sep 30, 2015 10:12 AM QUIT TOBACCO >7 YEARS AGO [facility] Oct 29, 2014 10:23 AM QUIT TOBACCO >7 YEARS AGO [facility] Dec 27, 2013 01:27 PM QUIT TOBACCO >7 YEARS AGO [facility] Feb 24, 2013 02:01 PM LIFETIME NON-USER OF TOBACCO [facility] Feb 11, 2009 10:09 AM QUIT TOBACCO >7 YEARS AGO [facility] Oct 06, 2006 09:30 AM CURRENT NON-TOBACC O USER-HX OF USE [facility] Oct 06, 2006 09:30 AM TOBACCO TERMINATION STAGE [facility] Advance Directives: All historical and current Section Date Range: From patient's date of to the date document was created. This section includes ALL of a patient's completed or amended [place] Advance and Rescinded Directives. The entries below indicate that a directive exists for the patient, but an actual copy is not included with this document. The data comes from all [facility]. Date Advance Directives Provider Source Jan 19, 2017 ADVANCE DIRECTIVE DISCUSSION ERICK BARDALES [facility] Radiology Reports: +/- 30 days of [...] the Encounter. The data comes from all [place] treatment facilities. Date/Time Radiology Report Provider Source Jun 07, 2024 02:[address] CHEST W/CONTRAS T & 3D: CHET WALKER [id number] -1950 M Exm Date: JUN 07, 2024@14:29 Req Phys: JOHANA REDDY Loc: [facility]-ONCOLOGY K[facility]I (Req'g Img Loc: [facility]-CT IMAGING [facility] Service: Unknown [facility], [address] [place] [address] (Case [id number] COMPLETE) CT THORAX, DIAGNOSTIC, W/CONTRAS(CT Detailed) CPT:58004 Contrast Media : Non-ionic Iodinated Reason for Study: Shortness of breath (Case 3139 COMPLETE) UNLISTED CT PROCEDURE (CT Detailed) CPT:94198 CPT Modifiers : 52 REDUCED SERVICES Clinical History: Responsible Attending: Dr. Orantes Attending Contact Number: [phone] Resident Contact Number: CT chest, high resolution Allergies listed in CPRS chart: TRAMADOL Creatinine: CREATININE 0.87 mg/dL 03/06/2024 09:52 /eGFR: STL EGFR (within one year). CREATININE 0.87 mg/dL (03/06/24 09:52) Wt: 233.1 lb [105.73 kg] (05/17/2024 08:37) History of: Renal failure, chronic or acute renal disease: NO Report Status: Verified Date Reported: JUN 07, 2024 Date Verified: JUN 07, 2024 File Drawer Finisher E-Sig:/ES/LISHA BRYANT Report: , [id number], [id number] INDICATION: Shortness of breath COMPARISON: None TECHNIQUE: [...] suggested. Primary Interpreting Staff: LISHA BRYANT, RADIOLOGIST (File Drawer Finisher) /LISHA AVITIA [facility] Jun 07, 2024 02:[address] ABD PEL W/CONT & 3D: HCET WALKER [id number] -1950 M Exm Date: JUN 07, 2024@14:28 Req Phys: JOHANA REDDY Pat Loc: [facility]-ONCOLOGY KANDI (Req'g Img Loc: [facility]-CT IMAGING [facility] Service: Unknown [facility], [facility] [address] [place] [address] (Case [id number] COMPLETE) CT ABDOMEN AND PELVIS W/CONTRAST (CT Detailed) CPT:19927 Contrast Media : Non-ionic Iodinated Reason for Study: enlarged spleen (Case 3137 COMPLETE) CT 3D RENDERING W INDEPENDENT WOR(CT Detailed) CPT:52333 Clinical History: Responsible Attending: Dr. Orantes Attending Contact Number: [id number] Resident Contact Number: spleenomegally, evaluation for liver, lymphadenopathy Allergies listed in CPRS chart: TRAMADOL Creatinine:CREATININE 0.87 mg/dL 03/06/2024 09:52 /eGFR: STL EGFR (within one year). CREATININE 0.87 mg/dL (03/06/24 09:52) Wt: 233.1 lb [105.73 kg] (05/17/2024 08:37) History of: Renal failure, chronic or acute renal disease: NO Report Status: Verified Date Reported: JUN 07, 2024 Date Verified: JUN 07, 2024 File Drawer Finisher E-Sig:/ES/LISHA BRYANT Report: , [id number], [id number] INDICATION: Shortness of breath COMPARISON: None TECHNIQUE: [...] suggested. Primary Interpreting Staff: LISHA BRYANT, RADIOLOGIST (File Drawer Finisher) /LISHA AVITIA [facility] Encounter Notes: All associated encounter notes This section contains the clinical notes associated to the Encounter. Date/Time Encounter Note(s) Provider Source Jun 09, 2024 04:13 PM OPTOMETRY CONSULT: LOCAL TITLE: OPTOMETRY CONSULT [facility] STANDARD TITLE: OPTOMETRY CONSULT DATE OF NOTE: JUN 09, 2024@16:13 ENTRY DATE: JUN 09, 2024@16:13:12 AUTHOR: FRANK HARRELL COSIGNER: URGENCY: STATUS: COMPLETED 06/09/24 OCT Report Macula Note: The image can be viewed on [facility] Reason for OCT: Mildly decreased vision, likely due to cataracts Assessment: O.D. Foveal pit: intact (+)VMA O.S. Foveal pit: intact normal macular architecture /es/ FRANK HARRELL, OD Staff Physician, Optometry Signed: 06/09/2024 16:[address] [facility] Jun 09, 2024 01:19 PM OPTOMETRY NOTE: LOCAL TITLE: OPTOMETRY NOTE STANDARD TITLE: OPTOMETRY NOTE DATE OF NOTE: JUN 09, 2024@13:19 ENTRY DATE: JUN 09, 2024@13:19:54 AUTHOR: FRANK HARRELL EXP COSIGNER: URGENCY: STATUS: COMPLETED Last seen: 05/12/24 Reason for visit: trouble with glasses CC: 1. 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 (+) Diabtes without retinopathy OU *Hx of Mild NPDR OS (+) Hx of Pituitary Adenoma *Managed at OSH, treated with bromocriptine >10 years ago (+) Combined Cataracts OU Family OcHX: (-) blindness (-) glaucoma (-) AMD (-) RD Problem list, medications and allergies reviewed: CPRS Serology for Diabetes GLUCOSE 100 H mg/dL 05/17/2024 10:20 HGA1C 7.0 H % 03/06/2024 09:52 Cardiovascular BP: 147/70 (06/07/2024 11:56) Pulse: 61 (06/07/2024 11:53) VISUAL ACUITY With correction, Distance Visual Acuity OD: 20/40- OS: 20/40 Pupils: PERRL OU (-)APD Confrontation: Grossly FTFC OU Extra-Ocular Muscles: Full OU Externals/Adnexa: Unremarkable OU Manifest Refraction: 05/12/24 OD: +0.50 -1.00 x100 20/25-2 - PAP: 20/20- (difficult) OS: +0.50 -1.25 x065 -2 - PAP: 20/20- (difficult) ADD: +2.50 Refraction 06/09/24 OD: +0.75 -1.00 x107 20/30 OS: +1.00 -1.50 x070 20/30 SLIT LAMP EXAMINATION Lids/Lashes/Lacrimal Mild MGD OU, (+)Papilloma lateral LLL Conjunctiva/Sclera White/quiet OU Cornea (+)Inf SPK OD > OS Ant Chamber Deep and quiet OU Iris Normal, (-)NVI OU Lens Gr 2 NS OU, 1+ PSC sup OU Intraocular Pressure History (Fluress/Goldmann): Date OD OS Time Meds 06/09/22 18 17 0907 none 06/04/23 19 19 0848 none 11/16/23 18 18 1055 none 05/12/24 18 18 1005 none RETINAL EVALUATION: nondilated Optic Nerve: OD: 0.15 CDR Flat, pink, distinct (-)NVD OS: 0.15 CDR Flat, pink, distinct (-)NVD Vessels: 2/3 OU Macula: OD: Flat, clear (-)CSME OS: Flat, clear (-)CSME OCT 06/09/24 Macula O.D. Foveal pit: intact (+)VMA O.S. Foveal pit: intact normal macular architecture Assessment/Plan: 06/09/2024 1. Hx of Pituitary Adenoma - Managed at OSH; per patient, treated with bromocriptine >10 years ago - followed in endocrine, last see 06/05/24 - [facility] 24-2 (11/2023): no VF defects that would be consistent with chiasmal compression - Ed. pt on findings - Monitor in 5 months with F 24-2 as already scheduled 2. Diabetes without hx of retinopathy, OU - not assessed today - last HgA1c was 7.0 - No DME on OCT - Educate and monitor, discussed diabetic eye disease, patient understands importance of good blood sugar control. - Monitor yearly with DFE 3. Hx of L Armenta's Palsy - With exposure keratopathy - Educated patient on importance of regular use of ATs BID-TID OU - Monitor 4. Combined Cataracts, OU - Mildly affecting the vision - Ed. pt on findings, will observe att his time - monitor in 5 months with vision check 5. Presbyopia and refractive error, OU - increase in BVA with refraction - mild decrease likely due to cataracts - trialed framed near add for patient today, pt voiced improvement - order remake of glasses Educate and monitor, discussed all exam findings RTC: 5 months as already scheduled with [facility] 24-2, sooner with changes /es/ FRANK HARRELL, OD Staff Physician, Optometry Signed: 06/09/2024 16:18 FRANK HARRELL [facility]
--- OUTSIDE RECORDS SUMMARY | 2024-11-17 03:44 | XMS_ITS | Encounter Summary ---
Author Name [facility] [place] [facility] [place] Address [address] [place] [address] Care Team Providers Care Hotel Or Motel Room Service Supervisor Name Role Phone MANUEL BAIRD Primary Care [...] PART A Apr 08, 2017 PART A [id number] ASHLEY WALKER PATIENT Selected Encounter This section includes the information on record at [place] for the Encounter. 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 Jun 20, 2024 04:15 PM PRIMARY Athscl heart disease of [place] cor art w unsp ang pctrs ROSE BERNARD [facility] Jun 20, 2024 04:15 PM SECONDARY Bifascicular block WILLOW BENITEZ [facility] Jun 20, 2024 04:15 PM SECONDARY Hypertensive heart disease with heart failure [facility]OW BENITEZ [facility] Jun 20, 2024 04:15 PM SECONDARY Type 2 diabetes mellitus without complications [facility]OW BENITE[facility] Jun 20, 2024 04:15 PM SECONDARY Unspecified systolic (congestive) heart failure WILLOW BENITEZ [facility] Plan of Treatment: Future Appointments (+ 6 months) and Future Tests (+/- 45 days) The Plan of Treatment section includes future care activities for the patient from all [facility]. This section includes future appointments and future orders which are active, pending or scheduled. Future Appointments This section includes appointments that were scheduled to occur 6 months from the date of the Encounter, up to a maximum of 20 appointments. The data comes from all [facility] facilities. Appointment Date/Time Appointment Type Appointme nt Facility Name Jun 29, 2024 10:15 AM AMBULATORY - MEDICINE [facility] Jun 29, 2024 01:00 PM AMBULATORY - SURGERY [facility] Jul 03, 2024 10:30 AM AMBULATORY - MEDICINE [facility] Jul 14, 2024 12:54 PM AMBULATORY - SURGERY [facility] Jul 20, 2024 10:00 AM AMBULATORY - MEDICINE [facility] Aug 02, 2024 09:45 AM AMBULATORY - MEDICINE [facility] Aug 24, 2024 10:00 AM AMBULATORY - MEDICINE [facility] Aug 24, 2024 10:30 AM AMBULATORY - MEDICINE [facility] Aug 30, 2024 09:30 AM AMBULATORY - MEDICINE [facility] Aug 31, 2024 01:00 PM AMBULATORY - SURGERY [facility] Sep 21, 2024 01:30 PM AMBULATORY - MEDICINE [facility] Sep 22, 2024 11:00 AM AMBULATORY - MEDICINE [facility] Sep 29, 2024 12:30 PM AMBULATORY - MEDICINE [facility] Oct 02, 2024 09:30 AM AMBULATORY - MEDICINE [facility] Nov 20, 2024 10:30 AM AMBULATORY - SURGERY . Julián JOLLEY [facility] Nov 21, 2024 10:00 AM AMBULATORY - NONE . LESIA Hirsch [facility] Dec 11, 2024 10:30 AM AMBULATORY - MEDICINE [facility] Active, Pending, and Scheduled Orders This section includes a listing of several types of active, pending, and scheduled orders, including clinic medications orders, diagnostic test orders, procedure orders and consult orders; where the start date of the order is 45 days before the date of the Encounter or 45 days after the date of theEncounter. The data comes from all [facility] facilities. Test Date/Time Test Type Test Details Facility Name Aug 02, 2024 12:00 AM Laboratory - Chemistry Order CBC BLOOD STAT [facility] Aug 02, 2024 12:00 AM Laboratory - Chemistry Order COMPREHENSIVE METABOLIC PANEL GREEN LI/HEP BLD/PLAS PLASMA SP [facility] Lab Results: +/- 30 days of [...] Range Comment Jul 17, 2024 08:[address] [facility] BASIC METABOLIC PANEL Specimen Type: PLASMA Comment: No hemolysis noted. Ordering Provider: WELLINGTON SON Report Released Date/Time: Jun 07, 2024 01:43 PM Reporting Lab: [facility] [address] [facility] [address] Performing Lab: [facility] [address] [facility] [address] CREATININE 0.85 mg/dL 0.7-1.3 UREA NITROGEN 15.2 mg/dL 9.0-25.0 GLUCOSE 120 mg/dL H 72-99 SODIUM 141 meq/L 136-145 POTASSIUM 4.4 meq/L 3.5-5 CHLORIDE 107 meq/L 98-107 CARBON DIOXIDE 26 meq/L 22-31 CALCIUM 9.2 mg/dL 8.4-10.4 EGFR (CKD-EPI 2020) 92.3 >60 Jun 19, 2024 07:[address] [facility] PT/INR NEW ([facility]) Specimen Type: PLASMA No comment entered. Ordering Provider: ROSE BERNARD Report Released Date/Time: Jun 12, 2024 10:14 AM Reporting Lab: [address] [address] Performing Lab: [address] [address] PROTIME 13.3 s H 9.4-12.5 INR VALUE 1.2 {INR} Jun 19, 2024 07:[address] [facility] BASIC METABOLIC PANEL Specimen Type: PLASMA Comment: K result may show a positive bias due to hemolysis. Specimen slightly hemolyzed. Ordering Provider: ROSE BERNARD Report Released Date/Time: Jun 12, 2024 10:14 AM Reporting Lab: [address] [address] Performing Lab: [address] [address] CREATININE 0.85 mg/dL 0.7-1.3 UREA NITROGEN 11.9 mg/dL 9.0-25.0 GLUCOSE 106 mg/dL H 72-99 SODIUM 141 meq/L 136-145 POTASSIUM 4.4 meq/L 3.5-5 CHLORIDE 110 meq/L H 98-107 CARBON DIOXIDE 22 meq/L 22-31 CALCIUM 9.9 mg/dL 8.4-10.4 EGFR (CKD-EPI 2020) 92.3 >60 Jun 19, 2024 07:[address] [facility] CBC Specimen Type: BLOOD No comment entered. Ordering Provider: ROSE BERNARD Report Released Date/Time: Jun 12, 2024 10:14 AM Reporting Lab: [address] [address] Performing Lab: [address] [address] WBC 5.1 10*3/uL 3.6-11.2 RBC 5.31 10*6/uL [...] 1.0-7.0 Jun 19, 2024 07:[address] [facility] GLUCOSE,BLOOD-poct (STL) Specimen Type: BLOOD Comment: Test Performed by: [id number] Meter #: [id number] Ordering Provider: LITZY HAGEN Report Released Date/Time: Jun 19, 2024 06:58 PM Reporting Lab: [address] [address] Performing Lab: [address] [address] GLUCOSE,BLOOD- poct (STL) 108 mg/dL H 72-99 Jun 09, 2024 11:[address] [facility] MICRAL/CREAT PROFILE (STL) Specimen Type: URINE No comment entered. Ordering Provider: WELLINGTON SON Report Released Date/Time: Jun 07, 2024 01:44 PM Reporting Lab: [address] [address] Performing Lab: [facility] [address] [place] [phone] URINE ALBUMIN (PB-STL) 167.5 mg/L uACR (STL) 103 mg/g H 0-29 CREATININE URINE/OTHERS 163.4 mg/dL 63-166 Jun 07, 2024 02:[address] [facility] BRAIN NATRIURETIC PEPTIDE Specimen Type: PLASMA No comment entered. Ordering Provider: WELLINGTON SON Report Released Date/Time: Jun 07, 2024 01:32 PM Reporting Lab: [facility] [address] [place] [phone] Performing Lab: [address] [address] BRAIN NATRIURETIC PEPTIDE 198.9 pg/mL H 0-100 Jun 07, 2024 02:[address] [facility] hsCRP Specimen Type: SERUM No comment entered. Ordering Provider: WELLINGTON SON Report Released Date/Time: Jun 07, 2024 01:42 PM Reporting Lab: [facility] [address] [place] [phone] Performing Lab: [address] [address] hsCRP 4.65 mg/L H 0-3.1 Jun 07, 2024 02:[address] [facility] MAGNESIUM Specimen Type: PLASMA No comment entered. Ordering Provider: WELLINGTON SON Report Released Date/Time: Jun 07, 2024 01:44 PM Reporting Lab: [facility] [address] [place] [phone] Performing Lab: [address] [address] MAGNESIUM 1.7 mg/dL 1.6-2.6 Jun 05, 2024 09:00 AM [facility] FSH (STL-MA) Specimen Type: SERUM Comment: Test Performed by [facility], [address] [place] [address] Tommie Garcia M.D., Ph.D., Director of Laboratories , CLIA [id number] Ordering Provider: EMILIA CALHOUN Report Released Date/Time: Jun 05, 2024 08:45 AM Reporting Lab: [facility] [address] [facility] [address] Performing Lab: [address] FSH (L-MA) 5.5 m[IU]/mL 1.4-12.8 Jun 05, 2024 09:[address] [facility] LUTEINIZING HORMONE Specimen Type: SERUM Comment: Test Performed by [place], [employer] [facility], [address] [place] [address] Tommie Garcia M.D., Ph.D., Director of Laboratories , CLIA [id number] Ordering Provider: EMILIA CALHOUN Report Released Date/Time: Jun 05, 2024 08:45 AM Reporting Lab: [facility] [address] [facility] [address] Performing Lab: [address] LUTEINIZING HORMONE 2.7 m[IU]/mL 1.6-15.2 Jun 05, 2024 09:00 AM [facility] PROLACTIN (STL-Eff 08/15) Specimen Type: PLASMA No comment entered. Ordering Provider: EMILIA CALHOUN Report Released Date/Time: Jun 05, 2024 08:45 AM Reporting Lab: [facility] [address] [facility] [address] Performing Lab: [facility] [address] [place] [phone] PROLACTIN (STL-Eff 08/15) 41.98 ng/mL H 3.5-19.4 Jun 05, 2024 09:[address] [facility] TSH (MA-PB) Specimen Type: SERUM No comment entered. Ordering Provider: EMILIA CALHOUN Report Released Date/Time: Jun 05, 2024 08:45 AM Reporting Lab: [address] [address] Performing Lab: [address] [address] TSH 3.510 u[IU]/mL 0.47-5 Jun 05, 2024 09:[address] [facility] FREE T4 (MA-PB) Specimen Type: SERUM No comment entered. Ordering Provider: EMILIA CLAHOUN Report Released Date/Time: Jun 05, 2024 08:45 AM Reporting Lab: [address] [address] Performing Lab: [address] [address] FREE T4 (MA-PB) 0.78 ng/mL 0.7-1.48 Vital Signs: All taken on the encounter date This section contains inpatient and outpatient Vital Signs collected on the date of the Encounter. Date/Time Temperature Pulse Blood Pressure Respiratory Rate SP02 Pain Height Weight Body Mass Index Source Jun 19, 2024 01:55 PM 98.2 41 146/51 20 98 0 [facility] Jun 19, 2024 11:45 AM 98.2 50 98/58 18 97 0 [facility] N Jun 19, 2024 10:45 AM 98.4 52 100/58 18 97 0 [facility] Jun 19, 2024 10:15 AM 98.4 50 104/65 18 97 0 [facility] Jun 19, 2024 09:45 AM 98.2 58 136/77 18 97 0 [facility] Social History: Smoking Status (Most current) [...] AM QUIT TOBACCO >[address] [facility] Tobacco Use History This section includes a history of the smoking, or tobacco-related health factors, that were collected on or before the date of the Encounter. The data comes from the [place] facility where the Encounter took place. Date/Time Smoking Status/Tobacco Use Comment F acility Sep 30, 2015 10:12 AM QUIT TOBACCO >[address] [facility] Oct 29, 2014 10:23 AM QUIT TOBACCO >[address] [facility] Dec 27, 2013 01:27 PM QUIT TOBACCO >[address] [facility] Feb 24, 2013 02:01 PM LIFETIME NON-USER OF TOBACCO [facility] Feb 11, 2009 10:09 AM QUIT TOBACCO >[address] [facility] Oct 06, 2006 09:30 AM CURRENT NON-TOBACC O USER-HX OF USE [facility] Oct 06, 2006 09:[address] [facility] Advance Directives: All historical and current Section Date Range: From patient's date of to the date document was created. This section includes ALL of a patient's completed or amended [place] Advance and Rescinded Directives. The entries below indicate that a directive exists for the patient, but an actual copy is not included with this document. The data comes from all [facility]. Date Advance Directives Provider Source Jan 19, 2017 ADVANCE DIRECTIVE DISCUSSION ERICK BARDALES [facility] Radiology Reports: +/- 30 days of [...] CHEST W/CONTRAS T & 3D: ABIEL WALKER [id number] -1950 M Exm Date: JUN 07, 2024@14:29 Req Phys: JOHANA REDDY Loc: YASH-ONCOLOGY KANDI (Req'g Img Loc: YASH-CT IMAGING YASH Service: Unknown [facility], [address] [place] [address] (Case [id number] COMPLETE) CT THORAX, DIAGNOSTIC, W/CONTRAS(CT Detailed) CPT:17559 Contrast Media : Non-ionic Iodinated Reason for Study: Shortness of breath (Case [id number] COMPLETE) UNLISTED CT PROCEDURE (CT Detailed) CPT:85511 CPT Modifiers : 52 REDUCED SERVICES Clinical History: Responsible Attending: Dr. Orantes Attending Contact Number: [phone] Resident Contact Number: CT chest, high resolution Allergies listed in CPRS chart: TRAMADOL Creatinine: CREATININE 0.87 mg/dL 03/06/2024 09:52 /eGFR: STL EGFR (within one year). CREATININE 0.87 mg/dL (03/06/24 09:52) Wt: 233.1 lb [105.73 kg] (05/17/2024 08:37) History of: Renal failure, chronic or acute renal disease: NO Report Status: Verified Date Reported: JUN 07, 2024 Date Verified: JUN 07, 2024 [employer] E-Sig:/ES/LISHA BRYANT Report: , [id number], [id number] INDICATION: Shortness of breath COMPARISON: None TECHNIQUE: [...] suggested. Primary Interpreting Staff: LISHA BRYANT, RADIOLOGIST ([employer]) /LISHA AVITIA [facility] Jun 07, 2024 02:[address] ABD PEL W/CONT & 3D: ABIEL WALKER [id number] -1950 M Exm Date: JUN 07, 2024@14:28 Req Phys: JOHANA REDDY Loc: YASH-ONCOLOGY KANDI (Req'g Img Loc: YASH-CT IMAGING YASH Service: [address] [address] (Case [id number] COMPLETE) CT ABDOMEN AND PELVIS W/CONTRAST (CT Detailed) CPT:73793 Contrast Media : Non-ionic Iodinated Reason for Study: enlarged spleen (Case [id number] COMPLETE) CT 3D RENDERING W INDEPENDENT WOR(CT Detailed) CPT:14013 Clinical History: Responsible Attending: Dr. Orantes Attending Contact Number: [phone] Resident Contact Number: spleenomegally, evaluation for liver, lymphadenopathy Allergies listed in CPRS chart: TRAMADOL Creatinine:CREATININE 0.87 mg/dL 03/06/2024 09:52 /eGFR: STL EGFR (within one year). CREATININE 0.87 mg/dL (03/06/24 09:52) Wt: 233.1 lb [105.73 kg] (05/17/2024 08:37) History of: Renal failure, chronic or acute renal disease: NO Report Status: Verified Date Reported: JUN 07, 2024 Date Verified: JUN 07, 2024 [employer] E-Sig:/ES/LISHA BRYANT Report: , [id number], [id number] INDICATION: Shortness of breath COMPARISON: None TECHNIQUE: [...] suggested. Primary Interpreting Staff: LISHA BRYANT, RADIOLOGIST ([employer]) /LISHA AVITIA [facility] Encounter Notes: All associated encounter notes This section contains the clinical notes associated to the Encounter. Date/Time Encounter Note(s) Provider Source Jun 19, 2024 02:07 PM CARDIOLOGY PROCEDURE NOTE: LOCAL TITLE: CARDIOLOGY-CART CATH/PROCEDURE NOTE STL STANDARD TITLE: CARDIOLOGY PROCEDURE NOTE DATE OF NOTE: JUN 19, 2024@14:07 ENTRY DATE: JUN 19, 2024@14:08:04 AUTHOR: MIGUEL ANGEL CHÁVEZ COSIGNER: NADEEM BERNARD URGENCY: STATUS: COMPLETED [place] CART Program for Clinical Assessment, Reporting, and Tracking CARDIOVASCULAR DIAGNOSTIC AND THERAPEUTIC PROCEDURE REPORT Patient: ABIEL WALKER SSN: [id number] : 1950 AGE: 74 Procedure Date: 06/19/2024 Associated Assessment: CV (06/19/2024) Procedure Status: Elective outpatient procedure Attending: NADEEM BERNARD Assisting: LORNE CHÁVEZ PROCEDURE INDICATIONS Primary Indication: Stable Angina or equivalent PROCEDURES PERFORMED Diagnostic Procedures: Left Heart Catheterization Coronary Angiography Other Procedures: Ultrasound guidance for vascular access Moderate sedation ACCESS Primary Arterial: Ultrasound guided Right Radial access (6F) CATHETERS Right coronary artery: Terumo [place], 6 fr Left coronary artery: Terum[place], 6 fr ALL PROCEDURES Heart rate (Bpm): 61 Aorta (mmHg): 90/ 46, mean 65 LEFT HEART CATHETERIZATION LV Systolic (mmHg): 103, EDP (mmHg): 5 No Aortic valve stenosis CORONARY ANGIOGRAPHY [place] Vessels Summary: 3 vessel CAD Dominance: Right dominant Narrative Description: i. Left main: Large caliber, short vessel that bifurcates into LAD and LCx. No angiographic evidence of disease. ii. LAD: Medium caliber vessel that gives off 2 diagonal branch and multiple septal perforators. Prximal LAD has 70-90% occlusion. D1 has 70- 90% occlusion in its proximal segment. iii. LCx: Non dominant medium caliber vessel that gives off 1 large obtuse marginal branch before continuing as a smaller caliber vessel in the left AV groove. No angiographic evidence of disease. The proximal LCx is 75-90% occluded. Proximal segment of OM1 is 70-90% occluded. iv. RCA: Dominant medium caliber vessel that gives off PDA and PL branches distally. Subtotal occlusion noted at the mid to distal segment. Left to right collaterals seen. PROCEDURE DETAILS AND FINDINGS IN-LAB MEDICATIONS Fentanyl 50 mg IV Heparin (LMWH) 3000 units IV Midazolam 1 mcg IV Start of procedure: 06/19/2024 08:55 End of procedure: 06/19/2024 09:32 Summary Data: Total Contrast: 130 mL, Visipaque-270 (iodixanol) Total Fluoroscopy Time: 14 min Radiation DAP: 90 dGy-cm2 Air Kerma: 731 mGy Total Fluids: 125 mL Estimated Blood Loss: 5 mL Specimen removed: No PERIPROCEDURAL COMPLICATIONS No Major Adverse Events or Complications The attending was present throughout the procedure. PROCEDURE SUMMARY -Multivessel CAD -Right radial access RECOMMENDATIONS -CT surgery eval for CABG. -Conitnue aspirin and high intensity statin. -7 day event monitor as patient has a new type I Mobitz block with bifascicular block. PROCEDURE CODING Coding Procedure [id number] Ultrasound guidance for vascular access N/A Moderate sedation 657 [facility]:[id number] 06/19/2024 /shen/ Lorne Chávez MD [place] [employer] Guide Signed: 06/19/2024 14:09 /shen/ NADEEM BERNARD MANAGER LOSS PREVENTIONFITNESS INSTRUCTOR, Cosigned: 06/19/2024 15:[address] [facility] Jun 19, 2024 09:43 AM PHYSICIAN EDUCATION DISCHARGE NOTE: LOCAL TITLE: DISCHARGE INSTRUCTIONS [facility] STANDARD TITLE: PHYSICIAN EDUCATION DISCHARGE NOTE DATE OF NOTE: JUN 19, 2024@09:43 ENTRY DATE: JUN 19, 2024@09:44:12 AUTHOR: MIGUEL ANGEL CHÁVEZ COSIGNER: NADEEM BERNARD URGENCY: STATUS: COMPLETED 1. DIAGNOSES: Post Cardiac Catheterization 2. FUTURE APPOINTMENT(S): *To reschedule [facility] appointments call and use extension below. date/time clinic phone number 06/28/24 8:15 am -ONCOLOGY KANDI [phone] 07/03/24 10:30 am YASH-MAN PACT STAR RES 07/20/24 10:00 am YASH-MAN PHARM MED MGMT [phone] 08/18/24 3:30 pm YASH-CARDIOLOGY SON [phone] 08/30/24 1:30 pm YASH-PODIATRY QI [phone] 10/02/24 9:30 am YASH-MIDFIELD PACT STAR RES 11/10/24 11:00 am YASH-OPTOMETRY 11/21/24 10:00 am -DENTAL HYG 12/11/24 10:30 am YASH-ENDOCRINOLOGY [place] [phone] *This listing may be incomplete. Please refer to Appointment Mgmt.listing for any additional patient appointments 3. DISCHARGE MEDICATIONS: Post Cardiac Catheterization Resume the same medications you were taking before the catheterization unless otherise ordered by your physician. As it is important to avoid straining for bowel movements for 7 days, if you tend to be constipated and/or regularly strain to pass stool, please inform your nurse so that a stool softening medication can be ordered. TO HELP YOU UNDERSTAND YOUR DRUG LIST ACTIVE ...means that you are presently taking these meds. SUSPENDED means that your prescription is active and in the mail order process. PENDING ..means that the medication has just been renewed, or, just ordered. HOLD .....means that the medication is active on your list, but will not be processed until pharmacy receives further instructions from you or your doctor to proceed with filling the prescription for delivery. NON-VA ...means you are getting the medication from somewhere besides the [facility]. Active Outpatient Medications (including Supplies): Active Outpatient [...] REASON OR FOR TECHNICAL HELP PLEASE CALL [employer] DESK: -SPECIFIC PHONE NUMBER: ([phone]). 11) INSULIN,ASPART(EQV-NOVLG)100UN/M L FLXPEN INJECT 6 ACTIVE [...] BY MOUTH ACTIVE NEEDED 24 Total Medications NEW MEDICATIONS (and indicatons): none The following changes were made to the medications you were taking prior to this hospitalization: none These medications have been stopped during your hospitalization (and reason why): none At your next appointment, please remember to bring all of your medication bottles with you Medication Reconciliation: I have discussed active and pending medications with the patient and/or nurse healthcare manager. I have made changes as appropriate.................YES 4. DISCHARGE INTRUCTIONAL MATERIALS *To be printed by Nurse and provided to patient Post Cardiac Catheterization, radial access: If any of the following occur, immediately contact your own physician or the [facility] Emergency Department at . *Bleeding from the catheterization puncture site: apply gentle pressure with a clean gauze or cloth and call. *If a knot or lump under the skin increases in size. *If bruising appears to be worsening or tracking/moving down the arm rather that disappearing. *If you have pain at the puncture site or in the arm used for the catheterization. *If the arm used for the catheterization appears pale in color and/or feels cooler to the touch compared to the opposite arm. *If the arm used for the catheterization appears reddened, swollen and/or feels warmer to touch compared to the opposite arm. While the wound is healing, bleeding or swelling can occur as a result of stress or strain to the wrist. Carefully follow these guidelines: # On the day of discharge, limit your activities with the affective arm. # No driving for 1 to 2 days. # For the first 2 days, do no lift anything more than 5 lbs with the affected arm. # You may resume your usual activities the day after discharge, except: # No heavy lifting, pushing or pulling (greater than 10 pounds) with affected arm day 3-7. # No strenuous deep bending or flexing of the wrist for 3 days (i.e. rising from a chair or bed bending your wrist, tennis, swimming, golfing, weight lifting, bicycling). 5. WOUND MANAGEMENT: Post Cardiac Catheterization, radial access: HOME CARE INSTRUCTIONS *Take all medications exactly as directed. *Limit your activity for the first 48 hours. Avoid bending the place where the catheter was inserted. *No tub bathing, hot tubs or swimming for 5 days. *You may remove the dressing and shower tomorrow but do not scrub site, lightly wipe area and allow the water to rinse off. *No lifting more than 5-7 lbs for 5 days. *No driving for 24 hours. *If there are any questions or concerns please call HOME CARE INSTRUCTIONS 1. Take all medications exactly as directed. 2. Limit your activity for the first 48 hours. Avoid bending the place where the catheter was inserted. 3. No tub bathing, hot tubs or swimming for 5 days. 4. May remove dressing and shower tomorrow but do not scrub site, lightly wipe area and allow the water to rinse off. 5. No lifting more than 5-7 lbs for 5 days. 6. No driving for 24 hours. 7. If there is any questions or concerns please call 6. DISCHARGE DIETARY INSTRUCTIONS: Diabetic *Timing of your meals is important. Space your meals and snacks to 3 to 4 times per day. Try to eat around the same time each day. *Cut down on sugar, desserts, sweets and sugared drinks like fruit drinks and regular soda. *If you are overweight, even a 10 lb. weight loss can help lower your blood sugar. *Eat SMALLER servings of food with carbohydrates. Some high carbohydrate foods are milk, breads, cereals, rice, potatoes, pasta, dried beans, crackers, fruits and juices. *Increasing exercise will also help lower blood sugar. If you have questions, contact the dietitians at [phone]. 7. DISCHARGE PHYSICAL ACTIVITY INSTRUCTIONS: Activity as tolerated 8. OTHER (Include employment status): 9. WORSENING and/or DANGEROUS SYMPTOMS TO REPORT (Phys. entry required): Post Cardiac Catheterization, radial access: SEEK IMMEDIATE MEDICAL CARE IF: *You develop chest pain, shortness of breath, feel faint, or pass out. *There is bleeding, swelling, or drainage from the catheter insertion site. *You develop pain, discoloration, coldness, or severe bruising in the leg or arm that held the catheter. *You develop bleeding from any other place such as the urine or bowels. This may be bright red blood in urine or stools, or also appear as black, tarry stools. SEEK IMMEDIATE MEDICAL CARE IF: 1. You develop chest pain, shortness of breath, feel faint, or pass out. 2. There is bleeding, swelling, or drainage from the catheter insertion site. 3. You develop pain, discoloration, coldness, or severe bruising in the leg or arm that held the catheter. 4. You develop bleeding from any other place such as the urine or bowels. This may be bright red blood in urine or stools, or also appear as black, tarry stools. RADIAL WORSENING Post Cardiac Catheterization: If any of the following occur, immediately contact your own physician or the [facility] Emergency Department at . *Bleeding from the catheterization puncture site: apply gentle pressure with a clean gauze or cloth and call. *If a knot or lump under the skin increases in size. *If bruising appears to be worsening or tracking/moving down the arm rather that disappearing. *If you have pain at the puncture site or in the arm used for the catheterization. *If the arm used for the catheterization appears pale in color and/or feels cooler to the touch compared to the opposite arm. *If the arm used for the catheterization appears reddened, swollen and/or feels warmer to touch compared to the opposite arm. Specialist Information: Follow-up with your Primary Care Physician or Specialist or call [facility] Helpline: [phone] NOTE: If you are having feelings of Depression or Emotional Distress, or feel you just need to talk with someone, please call PRESS 1. /shen/ Lorne Chávez MD [place] [employer] Signed: 06/19/2024 09:46 /es/ NADEEM BERNARD MANAGER LOSS PREVENTIONFITNESS INSTRUCTORMD Cosigned: 06/19/2024 11:[address] [facility] Jun 19, 2024 09:41 AM CARDIOLOGY NURSING PREPROCEDURE NOTE: LOCAL TITLE: TALENT MANAGEMENT MANAGER PROCEDURE STL STANDARD TITLE: CARDIOLOGY NURSING PREPROCEDURE NOTE DATE OF NOTE: JUN 19, 2024@09:41 ENTRY DATE: JUN 19, 2024@09:41:51 AUTHOR: PATRICK SONG COSIGNER: URGENCY: STATUS: COMPLETED Cardiac Catheterization Report 06/19/2024 9:40:50 Financial #: 1 of 12 Patient Name: Abiel Walker Date of : 1950 Study #: Initial MD: Nadeem Bernard Study Date: 06/19/2024 Entire Case Report Patient Information Patient Name: Abiel Walker Date of : 1950 Age: 74 years Financial #: Gender: M Accession #: Hospital Room #: Height (in): 70.0 Height (cm): 177.8 BSA: 2.23 Weight (lbs): 234.0 Weight (kg): 106.4 AlternateID: Lab Number: 6 Address Type [facility] Zip Code Patient Address/Phone Number Patient Phone Study Information Scheduled Start Study Start 06/19/2024 06/19/2024 8:15 Facility Department [facility] - Pulmonary Function Technician Physician and Clinical Staff Initial MD: Nadeem Bernard Fellow: Lorne Chávez Field Captain: Milagros Pina Holding Area: Naresh Bonilla Holding Area: Vernell Caballero Holding Area: [facility] Medication Nurse: Nanda Ramires Recorder: Patrick Song Scrub: Josiah Hooper Procedure Charges CPT Description Location Name CPT Code - (Modifier) [Internal Code] Arterial access Radial (right) 89984 [2493] Coronary Angiogram 51591 [50705] Left Heart Cath 70630 [81350] 06/19/2024 9:40:50 Financial #: 2 of 12 Patient Name: Abiel Walker Date of : 1950 Study #: Initial MD: Nadeem Bernard Study Date: 06/19/2024 Time Sports Physician Description Size Mfg Part Number Used/Scraped 8:17 Av[employer] Cath Pack-Intervention [id number] Used 9:24 [employer] JL 3.5 6F 532-618 Used 9:14 GE Waste Remedies Visipaque-320mg 150ml [id number] Used 8:17 Hovertech Int Hovermatt [id number] Used 8:17 Medline Drape Brachial 15914 Used 8:59 Terumo Terumo Glidesheath RADIAL 6F x 10 cm 40-1060 Used 9:07 Terumo Tig 4.0 6Fr RH [id number] Used 9:31 Terumo TR Band REG IRQ17-IEX Used Equipment History: Questions Risk Factors V5 Risk Factors Hypertension: Yes Diabetes Mellitus: Yes Labs Hgb (12.00-18.00) 14 gm/dl Hct (37.00-55.00) 44 % Plat (140.00-450.00) 107 thousands Creat (0.10-9.00) 0.8 mg/dl K (3.80-5.10) 4.4 meq/l PT (10.80-13.80) 13.3 sec INR (0.50-2.00) 1.2 PTT:PT Medication 06/19/2024 9:40:50 Financial #: Patient Name: Abiel Walker Date of : 1950 Study #: Initial MD: Nadeem Bernard Study Date: 06/19/2024 Medication Total Dose (Bolus/Oral) Medication Total Dosage/Unit ASPIRIN 324 mg FENTANYL 50 mcg HEPARIN 3000 units LIDOCAINE 2% 3 mL VERAPAMIL 5 mg VERSED 1 mg Medications (Bolus/Oral) Medication Time Given Dosage/Unit Administered By Reason ASPIRIN 06/19/2024 7:55:50 324 mg Vernell Caballero Verbal order, read back and confirmed 324 mg ASPIRIN given pre op by Vernell Caballero via Oral. Ordered by Nadeem Bernard. Reason: Verbal order, read back and confirmed. VERSED 06/19/2024 8:53:21 1 mg Milagros Pina Verbal order, read back and confirmed 1 mg VERSED given in lab by Milagros Pina via Peripheral IV. Ordered by Nadeem Bernard. Reason: Verbal order, read back and confirmed. FENTANYL 06/19/2024 8:53:22 50 mcg Milagros Pina Verbal order, read back and confirmed 50 mcg FENTANYL given in lab by Milagros Pina via Peripheral IV. Ordered by Nadeem Bernard. Reason: Verbal order, read back and confirmed. LIDOCAINE 2% 06/19/2024 8:55:31 3 mL Lorne Chávez Verbal order, read back and confirmed 3 mL LIDOCAINE 2% given pre op by Lorne Chávez in Right Hand via Subcutaneous. Ordered by Nadeem Bernard. Reason: Verbal order, read back and confirmed. VERAPAMIL 06/19/2024 9:06:53 5 mg Lorne Chávez Verbal order, read back and confirmed 5 mg VERAPAMIL given pre op by Lorne Chávez via Intra-arterial. Ordered by Nadeem Bernard. Reason: Verbal order, read back and confirmed. HEPARIN 06/19/2024 9:09:32 3000 units Milagros Pina Verbal order, read back and confirmed 3000 units HEPARIN given pre op by Milagros Pina via Peripheral IV. Ordered by Ndaeem Bernard. Reason: Verbal order, read back and confirmed. 06/19/2024 9:40:50 Financial #: 4 of 12 Patient Name: Abiel Walker Date of : 1950 Study #: Initial MD: Nadeem Bernard Study Date: 06/19/2024 Dorsalis Pedis Posterior Tibial Radial 1 1 2 Alert Oriented to time-placeperson Moves all extremities Respiration Rate (B/min) SpO2 (%) 18 97 HR Rhythm NIBP Chest Pain 66 sinus arrythmia 156/81 0 Assessment Color Lower Right Color Lower Left Normal Normal Circulatory - Right Pulses Cardiovascular Edema Present Skin Color Skin Moderate Normal Warm Dry Dorsalis Pedis Posterior Tibial Radial 1 1 Scale (0,1,2,3,4,d) Circulatory - Lower Extremities Neurological State Respiration - General Circulatory - Left Pulses 06/19/2024 9:40:50 Financial #: 5 of 12 Patient Name: Abiel Walker Date of : 1950 Study #: Initial MD: Nadeem Bernard Study Date: 06/19/2024 Radial 2 Alert Oriented to time-placeperson Moves all extremities Respiration Rate (B/min) SpO2 (%) 13 97 HR Rhythm NIBP Chest Pain 48 nsb 124/81 0 Final Case Assessment Circulatory - Right Pulses Cardiovascular Edema Present Skin Color Skin None Normal Warm Dry Scale (0,1,2,3,4,d) Neurological State Respiration - General 06/19/2024 9:40:50 Financial #: 6 of 12 Patient Name: Abiel Walker Date of : 1950 Study #: Initial MD: Nadeem Bernard Study Date: 06/19/2024 Vitals Summary Time HR NIBP SpO2 Resp Temp EtCO2 Apnea Gordo Pain Level Gilmore Comment 8:16:11 64 157/87 100.0 13 0 2 8:21:10 66 166/89 99.0 15 0 2 8:26:18 68 152/86 100.0 12 0 2 8:31:15 64 152/86 100.0 12 0 2 8:36:16 66 149/86 100.0 12 8:41:13 69 152/81 99.0 12 0 2 8:46:12 67 146/84 100.0 12 0 2 8:51:13 69 150/88 100.0 16 0 2 8:56:14 74 153/80 98.0 12 0 2 9:01:17 64 114/72 96.0 11 0 2 9:07:07 64 141/73 96.0 12 0 2 9:11:19 67 98/66 94.0 11 0 2 9:16:20 61 96.0 13 0 2 9:17:18 69 118/66 96.0 11 0 2 9:21:05 70 113/77 98.0 10 0 2 9:22:13 56 114/64 96.0 10 0 2 9:29:33 63 98.0 11 0 2 9:31:19 52 124/81 97.0 14 0 2 9:35:21 50 119/84 100.0 11 0 2 9:40:22 Time Study Chronological Log 7:54:06 ASA SCORE=Class 2. 7:54:07 Mallampati Airway Assesment=Class 2. 7:54:08 Patient arrived to [facility] area. 7:54:32 Patient referred from [facility] 7:54:40 Pre EKG completed prior to arrival. Chronological Log 06/19/2024 9:40:50 Financial #: Patient Name: Abiel Walker Date of : 1950 Study #: Initial MD: Nadeem Bernard Study Date: 06/19/2024 7:54:41 Assessment: HR=66 BPM, Rhythm=sinus arrythmia, DQMM=460/81 mmhg, Chest Pain=0, Edema=Mod, Color=Normal, Skin = Warm, Dry Right Pulses: Donny Ped=1, Post Tib=1, Radial=2 Left Pulses: Donny Ped=1, Post Tib=1 Lower Right Extremities: Color=Normal Lower Left Extremities: Color=Normal Neurological: State=Alert, Ox3, LANDRUM Respiration: Resp=18 B/min, SpO2=97 % 7:54:50 Patient status:Outpatient-from 7:54:54 Pre cath education completed. Meds & equipt. explained, questions answered. Plan of care discussed. Pt verbalizes understanding 7:54:55 Patient has been NPO since: 06/18 7:55:16 Pt arrived from [facility] with labs drawn and working IV noted. 7:55:21 See CPRS for med list. 7:55:23 Site prepped with surgical clippers in the holding area 7:55:28 A 20 gauge IV was noted in the Hand (right). 7:55:50 324 mg ASPIRIN given pre op by Vernell Caballero via Oral. Ordered by Nadeem Bernard. Reason: Verbal order, read back and confirmed. 7:56:57 Right Radial Site Checked by Barron 7:57:10 Prep complete. Patient ready for cardiac cath. 8:07:18 Informed consent obtained on IMED in CPRS by physician. 8:10:17 Last Patient's Log Entered Into CPRS. 8:10:20 Pt transfer to Pulmonary Function Technician Room 8:15:23 Patient Arrival Time (Pt. in proc room) 8:15:26 Vitals capture started with the following parameters, Patient=Adult, Interval=5 min, Initial Serhmyhb=807 mmHg, Deflation Rate=5 mmHg 8:15:27 Reference ECG taken 8:15:33 Fire Risk Assessment performed. 8:15:34 Ignition source (cautery,laser,fiberoptic light)-1=Y, 0=N =0 8:15:38 Open Oxygen source-1=Y, 0=N =1 8:15:39 Procedure site above Xiphoid-1=Y, 0=N =0 8:15:40 Total Score(1-2=routine protocol; 3=high risk fire protocol)=1 8:15:41 Mobile estrada in use 8:15:42 Permanent dose record reviewed 8:15:44 Staff at procedure table wearing Leaded glasses 8:15:44 Staff wearing internal and external film badges 8:15:45 Staff wearing lead aprons and collars 8:15:46 X-ray Image detector height reviewed 8:15:46 Warning level at 300,000 mGy/cm2 D.A.P. or 2,000 mGy A.K. 8:15:47 X-ray protocol selected 8:15:48 All staff to report radiation concerns in real time 06/19/2024 9:40:50 Financial #: Patient Name: Abiel Walker Date of : 1950 Study #: Initial MD: Nadeem Bernard Study Date: 06/19/2024 8:16:11 HR=64 bpm, BOTL=805/87 mmhg, NtZ3=473.0 %, Resp=13 B/min, Pain=0, Gilmore=2 8:21:10 HR=66 bpm, KJOV=956/89 mmhg, SpO2=99.0 %, Resp=15 B/min, Pain=0, Gilmore= 2 8:26:18 HR=68 bpm, OAGZ=457/86 mmhg, UmN9=470.0 %, Resp=12 B/min, Pain=0, Gilmore=2 8:31:15 HR=64 bpm, FJLI=948/86 mmhg, GaI9=410.0 %, Resp=12 B/min, Pain=0, Gilmore=2 8:36:16 HR=66 bpm, DOZT=656/86 mmhg, XoP5=118.0 %, Resp=12 B/min 8:41:13 HR=69 bpm, TYVJ=815/81 mmhg, SpO2=99.0 %, Resp=12 B/min, Pain=0, Gilmore= 2 8:46:12 HR=67 bpm, GJES=790/84 mmhg, FmM5=263.0 %, Resp=12 B/min, Pain=0, Gilmore=2 8:51:13 HR=69 bpm, FPJH=086/88 mmhg, BhI0=606.0 %, Resp=16 B/min, Pain=0, Gilmore=2 8:51:50 Attending MD present 8:51:51 Time out including patient, procedure & site verification took place with staff, physician and patient prior to start of case. 8:51:52 Time out performed by:Nadeem Bernard, Patrick Song RN, Josiah Hooper RT, Everyone in agreement to proceed with procedure. 8:52:08 Time out performed by:Lorne Chávez, Nnada Ramires RN, Milagros Pina RN, Everyone in agreement to proceed with procedure. 8:52:27 Procedure site has been marked appropriately and the chapito is visible after prep and drape. 8:52:30 Valid consent form, containing information consistent with paragraph 5.f.(1)a via A Directive 1039(3) 8:52:31 Patient position: supine 8:52:36 Procedure: [facility] 8:52:41 Patient ID correct 8:53:21 1 mg VERSED given in lab by Milagros Pina via Peripheral IV. Ordered by Nadeem Bernard. Reason: Verbal order, read back and confirmed. 8:53:22 50 mcg FENTANYL given in lab by Milagros Pina via Peripheral IV. Ordered by Nadeem Bernard. Reason: Verbal order, read back and confirmed. 8:55:30 Case Start 8:55:31 3 mL LIDOCAINE 2% given pre op by Lorne Chávez in Right Hand via Subcutaneous. Ordered by Nadeem Bernard. Reason: Verbal order, read back and confirmed. 8:56:14 HR=74 bpm, RPMO=493/80 mmhg, SpO2=98.0 %, Resp=12 B/min, Pain=0, Gilmore= 2 8:58:01 Reference ECG taken 8:58:30 Access site is the Radial Artery. w/ the use of US 9:01:17 HR=64 bpm, TOYG=009/72 mmhg, SpO2=96.0 %, Resp=11 B/min, Pain=0, Gilmore= 2 9:01:29 Pressure channel 1 zeroed. 9:06:46 A Terumo Glidesheath RADIAL 6F x 10 cm was inserted into the Radial (right) and advanced. 9:06:53 5 mg VERAPAMIL given pre op by Lorne Chávez via Intra-arterial. Ordered by Nadeem Bernard. Reason: Verbal order, read back and confirmed. 9:07:02 The Tig 4.0 6Fr was inserted. 9:07:07 HR=64 bpm, OOOP=135/73 mmhg, SpO2=96.0 %, Resp=12 B/min, Pain=0, Gilmore= 2 9:09:32 3000 units HEPARIN given pre op by Milagros Pina via Peripheral IV. Ordered by Nadeem Bernard. Reason: Verbal order, read back and confirmed. 9:11:19 HR=67 bpm, NIBP=98/66 mmhg, SpO2=94.0 %, Resp=11 B/min, Pain=0, Gilmore=2 9:12:11 Recorded Pressure: LV, HR=57, Condition=Condition 1 (Left Ventricle) LV 109/-6/9 06/19/2024 9:40:50 Financial #: Patient Name: Abiel Walker Date of : 1950 Study #: Initial MD: Nadeem Bernard Study Date: 06/19/2024 9:12:32 Recorded Pressure: LV, Ao, HR=70, Condition=Condition 1 (Left Ventricle) LV 103/-6/5, (Aorta) Ao 90/46/65 9:13:07 Recorded Pressure: Ao, HR=66, Condition=Condition 1 (Aorta) Ao 96/42/65 9:14:20 RCA angiogram performed in multiple views. 9:15:32 Catheter repositioned 9:16:20 HR=61 bpm, SpO2=96.0 %, Resp=13 B/min, Pain=0, Gilmore=2 9:16:29 Vitals capture started with the following parameters, Patient=Adult, Interval=5 min, Initial Yibuyxir=928 mmHg, Deflation Rate=5 mmHg 9:17:18 HR=69 bpm, KBXR=084/66 mmhg, SpO2=96.0 %, Resp=11 B/min, Pain=0, Gilmore= 2 9:21:05 HR=70 bpm, HWZF=496/77 mmhg, SpO2=98.0 %, Resp=10 B/min, Pain=0, Gilmore= 2 9:22:13 HR=56 bpm, LIPS=494/64 mmhg, SpO2=96.0 %, Resp=10 B/min, Pain=0, Gilmore= 2 9:24:02 The current catheter was exchanged for a JL 3.5 6F. 9:29:33 HR=63 bpm, SpO2=98.0 %, Resp=11 B/min, Pain=0, Gilmore=2 9:29:42 Vitals capture started with the following parameters, Patient=Adult, Interval=5 min, Initial Makcnvvf=627 mmHg, Deflation Rate=5 mmHg 9:31:09 LCA angiogram performed in multiple views. 9:31:10 Coronary angiogram performed. 9:31:19 HR=52 bpm, FHIT=603/81 mmhg, SpO2=97.0 %, Resp=14 B/min, Pain=0, Gilmore= 2 9:31:28 A Left Heart Cath was performed. 9:32:21 Procedure Finish Time (Cath disengaged) 9:32:35 Right Radial sheath removed . Using TR-Band for Hemostasis 9:32:36 Manual Sheath Removal 9:32:40 Assessment: Final Case, HR=48 BPM, Rhythm=nsb, KJLX=258/81 mmhg, Chest Pain=0, Edema=None, Color=Normal, Skin = Warm, Dry Right Pulses: Radial=2 Neurological: State=Alert, Ox3, LANDRUM Respiration: Resp=13 B/min, SpO2=97 % 9:33:33 Post cath orders in CPRS 9:33:36 Post-cath education completed. D/C instructions reviewed & given to pt, questions answered. Pt verbalizes understanding. 9:33:38 Report given to DanielN Litzy HOLDEN 9:35:21 HR=50 bpm, FAQE=787/84 mmhg, HoL3=596.0 %, Resp=11 B/min, Pain=0, Gilmore=2 9:35:35 Cath Diagnostic 9:35:37 Diagnostic Attending=Joana 9:35:48 Patient scheduled for same day discharge 9:35:52 This Patient's Log Entered Into CPRS. 9:35:53 Contrast Total =130 9:35:57 Fluoro Time(min) =14 9:36:00 DAP(Gy)=40 9:36:04 A.K.(mGy)=731 06/19/2024 9:40:50 Financial #: Patient Name: Abiel Walker Date of : 1950 Study #: Initial MD: Nadeem Bernard Study Date: 06/19/2024 Post Anesthesia Sedation Score - Phase 1 [...] with peripheral nerve block or patient baseline [facility] Phase 1 time documented Time: 939 /shen/ PATRICK SONG BSN RN REGISTERED NURSE Signed: 06/19/2024 09:42 Receipt Acknowledged By: 06/19/2024 11:15 /camryn BERNARD MANAGER LOSS PREVENTIONFITNESS INSTRUCTOR, PATRICK JANG [facility] Jun 19, 2024 09:38 AM CARDIOLOGY PROCEDURE NOTE: LOCAL TITLE: CARDIAC CATHETERIZATION BRIEF PROCEDURE STL STANDARD TITLE: CARDIOLOGY PROCEDURE NOTE DATE OF NOTE: JUN 19, 2024@09:38 ENTRY DATE: JUN 19, 2024@09:38:34 AUTHOR: MIGUEL ANGEL CHÁVEZ COSIGNER: NADEEM BERNARD URGENCY: STATUS: COMPLETED PROCEDURE SUMMARY Date of procedure(s): Jun Pre-procedure diagnosis: Positive stress test Post-procedure diagnosis: Severe multivessel CAD PROCEDURE(S) PERFORMED Coronary Angiography PHYSICIAN(S) PERFORMING THE PROCEDURE(S) Select Physician(s) performing the procedure(s): Dr. Nadeem Bernard Physician assisting procedure(s): Dr Lorne Chávez ANCILLARY STAFF Anesthesia administered: Type of anesthesia: Moderate sedation Specimen removed: None FINDINGS Coronary Angiography Findings: Severe multivessel CAD Complications: None Estimated blood loss: 5ml Post procedure condition: [facility] Attending Physician was present throughout the procedure. This is a preliminary note. Final CART-CL report will follow. Patient cannot drive for 24-48 hours, depending on access site. These instructions were provided to the patient. /shen/ Lorne Chávez MD [employer] [employer] Signed: 06/19/2024 09:39 /shen/ NADEEM BERNARD MANAGER LOSS PREVENTIONFITNESS INSTRUCTOR, Cosigned: 06/19/2024 11:[address] [facility] Jun 19, 2024 08:08 AM INTERVENTIONAL CARDIOLOGY PRE OPERATIVE NOTE: LOCAL TITLE: CARDIOLOGY-CART PRE-CATH ASSESSMENT STANDARD TITLE: INTERVENTIONAL CARDIOLOGY PRE OPERATIVE NOTE DATE OF NOTE: JUN 19, 2024@08:08 ENTRY DATE: JUN 19, 2024@08:08:47 AUTHOR: MIGUEL ANGEL CHÁVEZ COSIGNER: NADEEM BERNARD URGENCY: STATUS: COMPLETED [place] Locate Special Diet Program for Clinical Assessment, Reporting, and Tracking CARDIOVASCULAR PRE-PROCEDURE ASSESSMENT REPORT Patient: ABIEL WALKER SSN: [id number] : 1950 AGE: 74 Assessment for elective CARDIOVASCULAR procedure Assessed by: LORNE CHÁVEZ Date: 06/19/2024 Attending: NADEEM BERNARD Referred by: Lissette Son PRESENTATION Echo on: 04/21/24 74/M with PMHx of JACQUELINE, type II DM, hld, htn, bronchial asthma, GERD, fatty liver with symptoms of SOB on exertion, NYHA class II-III. TTE showed newly reduced LVEF of 45-50% as compared to >70% in 2020, severe regional hypokinesis in posterior lateral wall. Pt also noted to have mild to mod MR, mild PH. Cr 1.05. 1. Upper normal left ventricula size. Mild [...] mildly thickened. Very mild aortic stenosis. 9. Xlcv-yw-lisbufhc mitral regurgitation. 10. As compared to the previous echocardiogram done on 05-07-2021 there have been significant changes, now EF lower with severe posterior lateral hypokinesis, pulmonary pressures are elevated and the rhythm is no longer sinus but shows probable Wenckebach [rate 60-70 bpm]. Carolann Alonso MD Reading physician TTE 2020: n 1. Global systolic function: Left ventricular [...] valvular abnormality. ZANE HOANG MD Reading physician Primary Indication Systolic Heart Failure NYHA Functional Class II CARDIAC RISK FACTORS Diabetes Hypertension Dyslipidemia REVIEW OF SYSTEMS PHYSICAL EXAM Vital Value Unit Date/Time BP 161/ 74 mmHG 2024-06-19 06:02 HR 48 bpm 2024-06-19 06:02 Height 70 inches 2024-06-19 06:02 Weight 234 lbs 2024-06-19 06:02 BSA 2.1 m^2 2024-06-19 06:02 Neck: No carotid bruits Lungs: No rales present Cardiac: No extra heart sound present No murmur Extremities: No femoral bruits Leg Pulses: Normal left femoral pulse Normal right femoral pulse Normal left dorsalis pedis pulse Normal right dorsalis pedis pulse Normal left posterior tibial pulse Normal right posterior tibial pulse Arm Pulses: Normal left radial pulse Normal right radialpulse Normal left brachial pulse Normal right brachial pulse LABS Lab Value Date/Time Alert --- BNP 198.9 2024-06-07 14:22 high Creatinine 1.05 2024-05-17 10:20 Potassium 4.5 2024-05-17 10:20 Hematocrit 40.8 2024-05-17 10:20 Platelets 103 2024-05-17 10:20 low INR 1.2 2024-04-07 11:04 Cholesterol total 180 2024-04-07 11:40 LDL (calculated) 117 2024-04-07 11:40 HDL Cholesterol 34 2024-04-07 11:40 low Triglycerides 145 2024-04-07 11:40 --- OUTPATIENT MEDICATIONS *BUMETANIDE 1MG TAB Qty: 45 for 90 days expires: 06/08/2025; last filled: 06/08/2024; active Sig: TAKE ONE-HALF TABLET BY MOUTH ONCE A DAY NEEDED PER PROVIDER INSTRUCTIONS CARVEDILOL 6.25MG TAB Qty: 90 for 90 days expires: 06/08/2025; last filled: 06/08/2024; active Sig: TAKE ONE-HALF TABLET BY MOUTH TWICE A DAY HEART FAILURE TAKE WITH FOOD. SACUBITRIL 24MG/VALSARTAN 26MG TAB Qty: 180 for 90 days expires: 06/08/2025; last filled: 06/08/2024; active Sig: TAKE 1 TABLET BY MOUTH TWICE A DAY FOR HEART FAILURE Indication: FOR HEART FAILURE ATORVASTATIN CALCIUM 40MG TAB Qty: 135 for 90 days expires: 06/08/2025; last filled: 06/12/2024; active Sig: TAKE ONE AND ONE-HALF TABLETS BY MOUTH EVERY EVENING Indication: FOR HIGH CHOLESTEROL GLUCOSE SENSOR FREESTYLE RADHIKA 3 Qty: 2 for 28 days expires: 05/16/2025; last filled: 06/13/2024; active Sig: USE SENSOR EVERY 2 WEEKS FOR BLOOD SUGAR MONITORING CHANGE SENSOR/SITE EVERY 14 DAYS. TO REPLACE SENSOR FOR ANY REASON OR FOR CARBOXYMETHYLCELLULOSE NA 0.5% OPH SOLN Qty: 30 for 60 days expires: 05/13/2025; last filled: 05/13/2024; active Sig: INSTILL 1 DROP IN BOTH EYES FOUR TIMES A DAY NEEDED FOR DRY EYE(S) Indication: FOR DRY EYE(S) SEMAGLUTIDE 1MG/0.75ML INJ PEN 3ML Qty: 3 for 84 days expires: 05/02/2025; last filled: 05/01/2024; active Sig: INJECT 1MG UNDER THE SKIN EVERY WEEK FOR DIABETES Indication: FOR DIABETES *ALBUTEROL 90MCG (CFC-F) 200D ORAL INHL Qty: 2 for 90 days expires: 04/08/2025; last filled: 04/09/2024; active Sig: INHALE 1 PUFF BY ORAL INHALATION FOUR TIMES A DAY NEEDED FOR BREATHING. SHAKE WELL. RINSE MOUTHPIECE FREQUENTLY TO PREVENT DULOXETINE HCL 60MG EC CAP Qty: 90 for 90 days expires: 04/08/2025; last filled: 04/22/2024; active Sig: TAKE ONE CAPSULE BY MOUTH ONCE A DAY FOR NERVE PAIN DO NOT ABRUPTLY DISCONTINUE MEDICATION. INSULIN,ASPART(EQV-NOVLG)100UN/M L FLXPEN Qty: 5 for 90 days expires: 02/17/2025; last filled: 02/21/2024; active Sig: INJECT 6 UNITS UNDER THE SKIN BEFORE SUPPER FOR DIABETES ADMINISTER 10 MINUTES BEFORE FOOD DIRECTED. REFRIGERATE UN-OPENED PENS. DISCARD AMMONIUM LACTATE 12% CREAM Qty: 140 for 30 days expires: 02/11/2025; last filled: 02/11/2024; active Sig: APPLY LIGHTLY TO AFFECTED AREA(S) TWICE A DAY EXTERNAL USE ONLY. DO NOT APPLY TO RED, ITCHY, OR SORE SKIN. MELOXICAM 7.5MG TAB Qty: 90 for 90 days expires: 02/02/2025; last filled: 02/04/2024; active Sig: TAKE ONE TABLET BY MOUTH ONCE A DAY NEEDED FOR OSTEOARTHRITIS Indication: FOR OSTEOARTHRITIS METFORMIN HCL 500MG 24HR SA TAB Qty: 360 for 90 days expires: 02/02/2025; last filled: 02/04/2024; active Sig: TAKE TWO TABLETS BY MOUTH TWICE A DAY FOR BLOOD SUGAR CONTROL. TAKE WITH FOOD. AVOID ALCOHOL. DISCONTINUE BEFORE GETTING XRAY DYE. DEXTROSE 24GM/31GM SQUEEZE TUBE Qty: 3 for 30 days expires: 01/24/2025; last filled: 01/25/2024; active Sig: TAKE 1 TUBE BY MOUTH NEEDED FOR LOW BLOOD SUGAR REPEAT DOSE IF HYPOGLYCEMIA CONTINUES 15 MINUTES AFTER THE FIRST DOSE. TRANSPARENT DRESSING 2 3/8IN X 2 3/4IN Qty: 100 for 90 days expires: 01/24/2025; last filled: 01/25/2024; active Sig: USE/APPLY DRESSING(S) TO AFFECTED AREA(S) TWO TIMES PER WEEK FOR WOUND CARE INSULIN,GLARG(TOUJEO MAX) 300 UNT/ML 3ML Qty: 8 for 76 days expires: 11/18/2024; last filled: 03/30/2024; active Sig: INJECT 90 UNITS UNDER THE SKIN ONCE A DAY FOR DIABETES ADMINISTER AT SAME TIME EACH DAY DIRECTED. DISCARD ANY OPEN CARTRIDGE AFTER 42 MULTIVITAMIN CAP/TAB Qty: 100 for 90 days expires: 11/18/2024; last filled: 11/19/2023; active Sig: TAKE 1 TABLET BY MOUTH ONCE A DAY FOR NUTRITION/DIETARY SUPPLEMENTATION *NEEDLE,PEN 31G,5MM Qty: 200 for 90 days expires: 11/18/2024; last filled: 11/19/2023; active Sig: USE 1 NEEDLE UNDER THE SKIN TWICE A DAY FOR LONG ACTING INSULIN AND MEALTIME INSULIN METHOCARBAMOL 500MG TAB Qty: 120 for 60 days expires: 09/09/2024; last filled: 09/09/2023; active Sig: TAKE 1 TABLET BY MOUTH TWICE DAILY NEEDED FOR MUSCLE SPASM Indication: FOR MUSCLE SPASM PREGABALIN 200MG ORAL CAP Qty: 60 for 30 days expires: 08/04/2024; last filled: 03/28/2024; active Sig: TAKE ONE CAPSULE BY MOUTH TWICE A DAY *LANCET,SOFTCLIX Qty: 200 for 90 days expires: 07/02/2024; last filled: 09/20/2023; active Sig: USE LANCET FOR BLOOD TEST TWICE A DAY FOR BLOOD SUGAR MONITORING USE DIRECTED OMEPRAZOLE 20MG EC CAP Qty: 90 for 90 days expires: 01/30/2025; last filled: 07/19/2024; active/susp Sig: TAKE ONE CAPSULE BY MOUTH EVERY MORNING TO LOWER STOMACH ACID. TAKE 30 MINUTES PRIOR TO FOOD. Non-VA NAPROXEN NA 220MG TAB 220MG BY MOUTH NEEDED MEDICATION REVIEW AND RECONCILIATION Medications (prescriptions and over the counter) reviewed with the patient and reconciled in the medical record. ALLERGIES/ADVERSE REACTIONS Tramadol SEDATION/CONSENT CodeStatus: Full Code Anesthesia: consult not needed Sedation by Cardiology Planned sedation level: Moderate Mallampati Class 2: faucial pillars, soft palate visible Physical status assessment (ASA class): 2 - Patient with mild to moderate systemic disease PROCEDURE PLAN Planned Diagnostic Procedures: Left Heart Catheterization Right Heart Catheterization Coronary Angiography LV Angiography Supravalvular Aortography Aortography Femoral Angiography Planned Therapeutic Procedures: PCI Cardioversion Pericardiocentesis Planned Other Procedures: Ultrasound guidance for vascular access Moderate sedation Drug infusion SUMMARY [address] [facility]:[id number] 06/19/2024 Social History: Tobacco use: No Alcohol use: No Illicit drug abuse: No Sedation/Anesthesia History: Prior sedation or anesthesia: Yes Prior adverse reaction to sedation anesthesia: No Type of Reaction: /shen/ Lorne Chávez MD [place] [employer] Guide Signed: 06/19/2024 08:09 /shen/ NADEEM BERNARD MANAGER LOSS PREVENTIONFITNESS INSTRUCTORMD Cosigned: 06/19/2024 11:[address] [facility] Jun 19, 2024 07:55 AM CARDIOLOGY DIAGNOSTIC STUDY REPORT: LOCAL TITLE: CP CARDIAC CATH REPORT STANDARD TITLE: CARDIOLOGY DIAGNOSTIC STUDY REPORT DATE OF NOTE: JUN 19, 2024@07:55:56 ENTRY DATE: JUN 19, 2024@07:55:56 AUTHOR: CLINICAL,DEVICE PRO EXP COSIGNER: URGENCY: STATUS: COMPLETED PROCEDURE SUMMARY CODE: Machine Resulted DATE/TIME PERFORMED: JUN 19, 2024@07:00 DOCUMENT IN VISTA IMAGING SEE FULL REPORT IN VISTA IMAGING Administrative Closure: 06/19/2024 by: CLINICAL,DEVICE PROXY SERVICE CLINICAL,DEVICE PROXY SERVICE [facility]
--- OUTSIDE RECORDS SUMMARY | 2024-11-17 03:44 | XMS_ITS ---
Author Name [facility] [place] [facility] [place] Address [address] [place] [address] Care Team Providers Care Business Intelligence Consultant Name Role Phone MANUEL BAIRD Primary Care [...] PART A Apr 08, 2017 PART A [id number] [phone] ASHLEY WALKER PATIENT Selected Encounter This section includes the information on record at [place] for the Encounter. Date/Time Encounter Type Encounter Description Reason Pro vider Source Jun 13, 2024 08:46 AM Outpatient Encounter ADMIN PAT ACTIVTIES (MASNONCT) IHE Encounter Template Text not used by [place] Plan of Treatment: Future Appointments (+ 6 [...] 20 appointments. The data comes from all [facility]. Appointment Date/Time Appointment Type Appointme nt Facility Name Jun 19, 2024 07:00 AM AMBULATORY - MEDICINE [facility] Jun 19, 2024 08:00 AM AMBULATORY - NONE [facility] Jun 29, 2024 10:15 AM AMBULATORY - MEDICINE [facility] Jun 29, 2024 01:00 PM AMBULATORY - SURGERY . [facility] Jul 03, 2024 10:30 AM AMBULATORY - MEDICINE [facility] Jul 14, 2024 12:54 PM AMBULATORY - SURGERY [facility] Jul 20, 2024 10:00 AM AMBULATORY - MEDICINE [facility] Aug 02, 2024 09:45 AM AMBULATORY - MEDICINE [facility] Aug 24, 2024 10:00 AM AMBULATORY - MEDICINE [facility] Aug 24, 2024 10:30 AM AMBULATORY - MEDICINE [facility] Aug 30, 2024 09:30 AM AMBULATORY - MEDICINE [facility] Aug 31, 2024 01:00 PM AMBULATORY - SURGERY [facility] Sep 21, 2024 01:30 PM AMBULATORY - MEDICINE [facility] Sep 22, 2024 11:00 AM AMBULATORY - MEDICINE [facility] Sep 29, 2024 12:30 PM AMBULATORY - MEDICINE [facility] Oct 02, 2024 09:30 AM AMBULATORY - MEDICINE [facility] Nov 20, 2024 10:30 AM AMBULATORY - SURGERY [facility] Nov 21, 2024 10:00 AM AMBULATORY - NONE [facility] Dec 11, 2024 10:30 AM AMBULATORY - MEDICINE [facility] Lab Results: +/- 30 days [...] Range Comment Jun 19, 2024 07:30 AM [facility] PT/INR NEW ([facility]) Specimen Type: PLASMA No comment entered. Ordering Provider: ROSE PITTS Report Released Date/Time: Jun 12, 2024 10:14 AM Reporting Lab: [address] [address] Performing Lab: [address] [address] PROTIME 13.3 s H 9.4-12.5 INR VALUE 1.2 {INR} Jun 19, 2024 07:30 AM [facility] BASIC METABOLIC PANEL Specimen Type: PLASMA Comment: K result may show a positive bias due to hemolysis. Specimen slightly hemolyzed. Ordering Provider: ROSE PITTS Report Released Date/Time: Jun 12, 2024 10:14 AM Reporting Lab: [facility] [address] [place] [address] Performing Lab: [address] [address] CREATININE 0.85 mg/dL 0.7-1.3 UREA NITROGEN 11.9 mg/dL 9.0-25.0 GLUCOSE 106 mg/dL H 72-99 SODIUM 141 meq/L 136-145 POTASSIUM 4.4 meq/L 3.5-5 CHLORIDE 110 meq/L H 98-107 CARBON DIOXIDE 22 meq/L 22-31 CALCIUM 9.9 mg/dL 8.4-10.4 EGFR (CKD-EPI 2020) 92.3 >60 Jun 19, 2024 07:30 AM [facility] CBC Specimen Type: BLOOD No comment entered. Ordering Provider: ROSE PITTS Report Released Date/Time: Jun 12, 2024 10:14 AM Reporting Lab: [address] [address] Performing Lab: [address] [address] WBC 5.1 10*3/uL 3.6-11.2 RBC 5.31 10*6/uL [...] Jun 19, 2024 07:29 AM [facility] GLUCOSE,BLOOD-poct (STL) Specimen Type: BLOOD Comment: Test Performed by: [id number] Meter #: [id number] Ordering Provider: CARROLL HAGEN Report Released Date/Time: Jun 19, 2024 06:58 PM Reporting Lab: [address] [address] Performing Lab: [address] [address] GLUCOSE,BLOOD-p oct (STL) 108 mg/dL H 72-99 Jun 09, 2024 11:48 AM [facility] MICRAL/CREAT PROFILE (STL) Specimen Type: URINE No comment entered. Ordering Provider: WELLINGTON SERNA Report Released Date/Time: Jun 07, 2024 01:44 PM Reporting Lab: [address] [address] Performing Lab: [address] [place] [address] URINE ALBUMIN (PB-STL) 167.5 mg/L uACR (STL) 103 mg/g H 0-29 CREATININE URINE/OTHERS 163.4 mg/dL 63-166 Jun 07, 2024 02:22 PM [facility] BRAIN NATRIURETIC PEPTIDE Specimen Type: PLASMA No comment entered. Ordering Provider: WELLINGTON SERNA Report Released Date/Time: Jun 07, 2024 01:32 PM Reporting Lab: [address] [address] Performing Lab: [address] [address] BRAIN NATRIURETIC PEPTIDE 198.9 pg/mL H 0-100 Jun 07, 2024 02:22 PM [facility] hsCRP Specimen Type: SERUM No comment entered. Ordering Provider: WELLINGTON SERNA Report Released Date/Time: Jun 07, 2024 01:42 PM Reporting Lab: [address] [address] Performing Lab: [address] [address] hsCRP 4.65 mg/L H 0-3.1 Jun 07, 2024 02:22 PM [facility] MAGNESIUM Specimen Type: PLASMA No comment entered. Ordering Provider: WELLINGTON SERNA Report Released Date/Time: Jun 07, 2024 01:44 PM Reporting Lab: [address] [address] Performing Lab: [address] [address] MAGNESIUM 1.7 mg/dL 1.6-2.6 Jun 05, 2024 09:00 AM [facility] FSH (STL-MA) Specimen Type: SERUM Comment: Test Performed by [employer], [address] [place] [address] Tommie Garcia M.D., Ph.D., Director of Laboratories , CLIA [id number] Ordering Provider: EMILIA CALHOUN Report Released Date/Time: Jun 05, 2024 08:45 AM Reporting Lab: [facility] [address] [facility] [address] Performing Lab: [address] FSH (STL-MA) 5.5 m[IU]/mL 1.4-12.8 Jun 05, 2024 09:00 AM [facility] LUTEINIZING HORMONE Specimen Type: SERUM Comment: Test Performed by [facility], [employer] [facility], [address] [place] [address] Tommie Garcia M.D., Ph.D., Director of Laboratories , CLIA [id number] Ordering Provider: EMILIA CALHOUN Report Released Date/Time: Jun 05, 2024 08:45 AM Reporting Lab: [facility] [address] [facility] [address] Performing Lab: [address] LUTEINIZING HORMONE 2.7 m[IU]/mL 1.6-15.2 Jun 05, 2024 09:00 AM [facility] PROLACTIN (STL-Eff 08/15) Specimen Type: PLASMA No comment entered. Ordering Provider: EMILIA CALHOUN Report Released Date/Time: Jun 05, 2024 08:45 AM Reporting Lab: [facility] [address] [facility] [address] Performing Lab: [place] [address] [facility] [address] PROLACTIN (STL-Eff 08/15) 41.98 ng/mL H 3.5-19.4 Jun 05, 2024 09:00 AM [facility] TSH (MA-PB) Specimen Type: SERUM No comment entered. Ordering Provider: EMILIA CALHOUN Report Released Date/Time: Jun 05, 2024 08:45 AM Reporting Lab: [facility] [address] [facility] [address] Performing Lab: [facility] [address] [facility] [address] TSH 3.510 u[IU]/mL 0.47-5 Jun 05, 2024 09:00 AM [facility] FREE T4 (MA-PB) Specimen Type: SERUM No comment entered. Ordering Provider: EMILIA CALHOUN Report Released Date/Time: Jun 05, 2024 08:45 AM Reporting Lab: [place] [address] [facility] [address] Performing Lab: [place] [address] FREE T4 (MA-PB) 0.78 ng/mL 0.7-1.48 May 17, 2024 10:20 AM [facility] JAK2 MUTATION (STL) Specimen Type: PLASMA Comment: A JAK2 V617F mutation is not detected. No mutation is detected in exon 12 of JAK2. Ordering Provider: JONATHON CHAU Report Released Date/Time: May 17, 2024 09:56 AM Reporting Lab: [address] [address] Performing Lab: [facility] [id number] [place] [address] JAK2 MUTATION (STL) NOT DETECTED NOT DETECTED May 17, 2024 10:20 AM [facility] LDH Specimen Type: PLASMA Comment: No hemolysis noted. Ordering Provider: JONATHON CHAU Report Released Date/Time: May 17, 2024 09:56 AM Reporting Lab: [address] [address] Performing Lab: [address] [address] LDH 272 U/L H 125-243 May 17, 2024 10:20 AM [facility] HAPTOGLOBIN (STL) Specimen Type: PLASMA Comment: No hemolysis noted. Ordering Provider: JONATHON CHAU Report Released Date/Time: May 17, 2024 09:56 AM Reporting Lab: [address] [address] Performing Lab: [address] [address] HAPTOGLOBIN (STL) 94 mg/dL 44-215 May 17, 2024 10:20 AM [facility] GGT GAMMA-GT Specimen Type: PLASMA Comment: No hemolysis noted. Ordering Provider: JONATHON CHAU Report Released Date/Time: May 17, 2024 09:56 AM Reporting Lab: [address] [address] Performing Lab: [address] [address] GGT GAMMA-GT 81 [IU]/L H 12-64 May 17, 2024 10:20 AM [facility] COMPREHENSIVE METABOLIC PANEL Specimen Type: PLASMA Comment: No hemolysis noted. Ordering Provider: JONATHON CHAU Report Released Date/Time: May 17, 2024 09:56 AM Reporting Lab: [address] [address] Performing Lab: [address] [address] CREATININE 1.05 mg/dL 0.7-1.3 UREA NITROGEN 16.4 [...] 75.4 >60 May 17, 2024 10:20 AM [facility] CBC Specimen Type: BLOOD No comment entered. Ordering Provider: JONATHON CHAU Report Released Date/Time: May 17, 2024 09:56 AM Reporting Lab: [facility] [address] [facility] [address] Performing Lab: [facility] [address] [facility] [address] WBC 5.0 10*3/uL 3.6-11.2 RBC 5.01 10*6/uL [...] and tobacco- related health factors from the [place] facility where the Encounter took place. Current Smoking Status This section includes the most current smoking, or tobacco-related health factor, from the [place] facility where the Encounter took place. Date/Time Current Smoking Status Comment Facil ity Aug 11, 2016 10:34 AM QUIT TOBACCO >7 YEARS AGO [facility] Tobacco Use History This section includes a history of the smoking, or tobacco-related health factors, that were collected on or before the date of the Encounter. The data comes from the [place] facility where the Encounter took place. Date/Time Smoking Status/Tobacco Use Comment F acility Sep 30, 2015 10:12 AM QUIT TOBACCO >7 YEARS AGO [facility] Oct 29, 2014 10:23 AM QUIT TOBACCO >7 YEARS AGO [facility] Dec 27, 2013 01:27 PM QUIT TOBACCO >7 YEARS AGO [facility] Feb 24, 2013 02:01 PM LIFETIME NON-USER OF TOBACCO [facility] Feb 11, 2009 10:09 AM QUIT TOBACCO >7 YEARS AGO [facility] Oct 06, 2006 09:30 AM CURRENT NON-TOBACC O USER-HX OF USE [facility] Oct 06, 2006 09:30 AM TOBACCO TERMINATION STAGE [facility] Advance Directives: All historical and current Section Date Range: From patient's date of to the date document was created. This section includes ALL of a patient's completed or amended [place] Advance and Rescinded Directives. The entries below indicate that a directive exists for the patient, but an actual copy is not included with this document. The data comes from all [facility]. Date Advance Directives Provider Source Jan 19, 2017 ADVANCE DIRECTIVE DISCUSSION ERICK BARDALES [facility] Radiology Reports: +/- 30 days of [...] the Encounter. The data comes from all [place] treatment facilities. Date/Time Radiology Report Provider Source Jun 07, 2024 02:[address] CHEST W/CONTRAS T & 3D: DENISECHET DUSTIN [id number] -[id number] M Exm Date: JUN 07, 2024@14:29 Req Phys: JOHANA REDDY Loc: [facility]-ONCOLOGY [facility]I (Req'g Img Loc: [facility]-CT IMAGING [facility] Service: [facility] [address] [place] [address] (Case [id number] COMPLETE) CT THORAX, DIAGNOSTIC, W/CONTRAS(CT Detailed) CPT:15506 Contrast Media : Non-ionic Iodinated Reason for Study: Shortness of breath (Case [id number] COMPLETE) UNLISTED CT PROCEDURE (CT Detailed) CPT:67775 CPT Modifiers : 52 REDUCED SERVICES Clinical History: Responsible Attending: Dr. Orantes Attending Contact Number: [id number] Resident Contact Number: CT chest, high resolution Allergies listed in CPRS chart: TRAMADOL Creatinine: CREATININE 0.87 mg/dL 03/06/2024 09:52 /eGFR: STL EGFR (within one year). CREATININE 0.87 mg/dL (03/06/24 09:52) Wt: 233.1 lb [105.73 kg] (05/17/2024 08:37) History of: Renal failure, chronic or acute renal disease: NO Report Status: Verified Date Reported: JUN 07, 2024 Date Verified: JUN 07, 2024 Flat Screen Worker E-Sig:/ES/LISHA BRYANT Report: , [id number], [id number] INDICATION: Shortness of breath COMPARISON: None TECHNIQUE: [...] suggested. Primary Interpreting Staff: LISHA BRYANT, RADIOLOGIST (Flat Screen Worker) /LISHA AVITIA [facility] Jun 07, 2024 02:[address] ABD PEL W/CONT & 3D: CHET WALKER [id number] -[id number] M Exm Date: JUN 07, 2024@14:28 Req Phys: JOHANA REDDY Loc: [facility]-ONCOLOGY [facility]I (Req'g Img Loc: [facility]-CT IMAGING [facility] Service: [facility] [address] [place] [address] (Case [id number] COMPLETE) CT ABDOMEN AND PELVIS W/CONTRAST (CT Detailed) CPT:63600 Contrast Media : Non-ionic Iodinated Reason for Study: enlarged spleen (Case [id number] COMPLETE) CT 3D RENDERING W INDEPENDENT WOR(CT Detailed) CPT:14493 Clinical History: Responsible Attending: Dr. Orantes Attending Contact Number: [id number] Resident Contact Number: spleenomegally, evaluation for liver, lymphadenopathy Allergies listed in CPRS chart: TRAMADOL Creatinine:CREATININE 0.87 mg/dL 03/06/2024 09:52 /eGFR: STL EGFR (within one year). CREATININE 0.87 mg/dL (03/06/24 09:52) Wt: 233.1 lb [105.73 kg] (05/17/2024 08:37) History of: Renal failure, chronic or acute renal disease: NO Report Status: Verified Date Reported: JUN 07, 2024 Date Verified: JUN 07, 2024 Flat Screen Worker E-Sig:/ES/LISHA BRYANT Report: , [id number], [id number] INDICATION: Shortness of breath COMPARISON: None TECHNIQUE: [...] suggested. Primary Interpreting Staff: LISHA BRYANT, RADIOLOGIST (Flat Screen Worker) /[facility] Encounter Notes: All associated encounter notes This section contains the clinical notes associated to the Encounter. Date/Time Encounter Note(s) Provider Source Jun 13, 2024 08:46 AM ADMINISTRATIVE NOT E: LOCAL TITLE: CONTACT NOTE ST STANDARD TITLE: ADMINISTRATIVE NOTE DATE OF NOTE: JUN 13, 2024@08:46 ENTRY DATE: JUN 13, 2024@08:46:35 AUTHOR: ANGELA ROONEY EXP COSIGNER: URGENCY: STATUS: COMPLETED CONTACT NOTE STL Has ADDENDA Veterans name and last 4 were used to verify identity Verified Veterans telephone #/Updated telephone number in the system REASON FOR CALL: Other: Reason for call: vet called in, was told not to take insulin before procedure. vet asking if he should leave his sensor. callback /shen/ ANGELA ROONEY AMSA Signed: 06/13/2024 08:48 Receipt Acknowledged By: 06/13/2024 10:57 /shen/ REED COLLADO, PHARM.D., [facility] CLINICAL PHARMACIST 06/13/2024 ADDENDUM STATUS: COMPLETED Pt will be having cardiac cath, no need to take the sesnor off unless he will be getting an MRI. /shen/ REED COLLADO, PHARM.D., [facility] CLINICAL PHARMACIST Signed: 06/13/2024 10:59 ANGELA ROONEY [facility]
--- OUTSIDE RECORDS SUMMARY | 2024-11-17 03:45 | XMS_ITS ---
Author Name [facility] [place] Organization [facility] [place] Address [address] [place] [address] Care Team Providers Care Post Adoption Coordinator Name Role Phone MANUEL BAIRD Primary Care [...] PART A Apr 08, 2017 PART A [id number] [phone] ASHLEY WALKER PATIENT Selected Encounter This section includes the information on record at [place] for the Encounter. Date/Time Encounter Type Encounter Description Reason Provider Source May 31, 2024 02:00 PM OFFICE O/P EST LOW 20 MIN PODIATRY ICD-10-CM B35.1 Mikeea JUVENTINO Vargas [facility] Encounter Template Text not used by [place] Assessments - Encounter Diagnoses This section includes the primary and secondary diagnoses documented for the Encounter. Date/Time Primary/Secondary Diagnosis Diagnosis Name Provider Source May 31, 2024 02:37 PM PRIMARY Tinea duum [facility] May 31, 2024 02:37 PM SECONDARY Acquired clubfoot, right foot [facility] May 31, 2024 02:37 PM SECONDARY Congenital pes cavus, left foot [facility] May 31, 2024 02:37 PM SECONDARY Congenital pes cavus, right foot [facility] May 31, 2024 02:37 PM SECONDARY Other hammer toe(s) (acquired), left foot [facility] May 31, 2024 02:37 PM SECONDARY Other hammer toe(s) (acquired), right foot [facility] May 31, 2024 02:37 PM SECONDARY Type 2 diabetes mellitus with diabetic neuropathy, unsp [facility] May 31, 2024 02:37 PM SECONDARY Xerosis cutis [facility] Plan of Treatment: Future Appointments (+ 6 months) and Future Tests (+/- 45 days) The Plan of Treatment section includes future care activities for the patient from all [place] [facility] This section includes future appointments and future orders which are active, pending or scheduled. Future Appointments This section includes appointments that were scheduled to occur 6 months from the date of the Encounter, up to a maximum of 20 appointments. The data comes from all [place] treatment [facility]. Appointment Date/Time Appointment Type Appointme nt Facility Name Jun 05, 2024 08:40 AM AMBULATORY - NONE [facility] Jun 07, 2024 12:30 PM AMBULATORY - MEDICINE [facility] Jun 07, 2024 01:30 PM AMBULATORY - NONE [facility] Jun 08, 2024 10:00 AM AMBULATORY - MEDICINE [facility] Jun 09, 2024 01:00 PM AMBULATORY - SURGERY [facility] Jun 19, 2024 07:00 AM AMBULATORY - MEDICINE [facility] Jun 19, 2024 08:00 AM AMBULATORY - NONE Teodora Hirsch [facility] Jun 29, 2024 10:15 AM AMBULATORY - MEDICINE [facility] Jun 29, 2024 01:00 PM AMBULATORY - SURGERY Julián JOLLEY [facility] Jul 03, 2024 10:30 AM AMBULATORY - MEDICINE [facility] Jul 14, 2024 12:54 PM AMBULATORY - SURGERY . Julián LILLY [facility] Jul 20, 2024 10:00 AM AMBULATORY - MEDICINE [facility] Aug 02, 2024 09:45 AM AMBULATORY - MEDICINE [facility] Aug 24, 2024 10:00 AM AMBULATORY - MEDICINE [facility] Aug 24, 2024 10:30 AM AMBULATORY - MEDICINE [facility] Aug 30, 2024 09:30 AM AMBULATORY - MEDICINE [facility] Aug 31, 2024 01:00 PM AMBULATORY - SURGERY Julián JOLLEY [facility] Sep 21, 2024 01:30 PM AMBULATORY - MEDICINE [facility] Sep 22, 2024 11:00 AM AMBULATORY - MEDICINE [facility] Sep 29, 2024 12:30 PM AMBULATORY - MEDICINE [facility] Lab Results: +/- 30 days of the [...] Range Comment Jun 19, 2024 07:30 AM [facility] PT/INR NEW (STL-KS) Specimen Type: PLASMA No comment entered. Ordering Provider: ROSE PITTS Report Released Date/Time: Jun 12, 2024 10:14 AM Reporting Lab: [facility] [address] [address] Performing Lab: [facility] [address] [address] PROTIME 13.3 s H 9.4-12.5 INR VALUE 1.2 {INR} Jun 19, 2024 07:30 AM [facility] BASIC METABOLIC PANEL Specimen Type: PLASMA Comment: K result may show a positive bias due to hemolysis. Specimen slightly hemolyzed. Ordering Provider: ROSE PITTS AEL Report Released Date/Time: Jun 12, 2024 10:14 AM Reporting Lab: [address] [address] Performing Lab: [address] [address] CREATININE 0.85 mg/dL 0.7-1.3 UREA NITROGEN 11.9 mg/dL 9.0-25.0 GLUCOSE 106 mg/dL H 72-99 SODIUM 141 meq/L 136-145 POTASSIUM 4.4 meq/L 3.5-5 CHLORIDE 110 meq/L H 98-107 CARBON DIOXIDE 22 meq/L 22-31 CALCIUM 9.9 mg/dL 8.4-10.4 EGFR (CKD-EPI 2020) 92.3 >60 Jun 19, 2024 07:30 AM [facility] CBC Specimen Type: BLOOD No comment entered. Ordering Provider: ROSE PITTS AEL Report Released Date/Time: Jun 12, 2024 10:14 AM Reporting Lab: [address] [address] Performing Lab: [address] [address] WBC 5.1 10*3/uL 3.6-11.2 RBC 5.31 10*6/uL [...] 1.0-7.0 Jun 19, 2024 07:29 AM [facility] GLUCOSE,BLOOD-poct (STL) Specimen Type: BLOOD Comment: Test Performed by: [id number] Meter #: [id number] Ordering Provider: CARROLL HAGEN Report Released Date/Time: Jun 19, 2024 06:58 PM Reporting Lab: [address] [address] Performing Lab: [address] [address] GLUCOSE,BLOOD-p oct (STL) 108 mg/dL H 72-99 Jun 09, 2024 11:48 AM [facility] MICRAL/CREAT PROFILE (STL) Specimen Type: URINE No comment entered. Ordering Provider: WELLINGTON SERNA Report Released Date/Time: Jun 07, 2024 01:44 PM Reporting Lab: [address] [address] Performing Lab: [address] [address] URINE ALBUMIN (PB-STL) 167.5 mg/L uACR (STL) 103 mg/g H 0-29 CREATININE URINE/OTHERS 163.4 mg/dL 63-166 Jun 07, 2024 02:22 PM [facility] BRAIN NATRIURETIC PEPTIDE Specimen Type: PLASMA No comment entered. Ordering Provider: WELLINGTON SERNA Report Released Date/Time: Jun 07, 2024 01:32 PM Reporting Lab: [address] [address] Performing Lab: [place] [address] [address] BRAIN NATRIURETIC PEPTIDE 198.9 pg/mL H 0-100 Jun 07, 2024 02:22 PM [facility] hsCRP Specimen Type: SERUM No comment entered. Ordering Provider: WELLINGTON SERNA Report Released Date/Time: Jun 07, 2024 01:42 PM Reporting Lab: [address] [address] Performing Lab: [address] [address] hsCRP 4.65 mg/L H 0-3.1 Jun 07, 2024 02:22 PM [facility] MAGNESIUM Specimen Type: PLASMA No comment entered. Ordering Provider: WELLINGTON SERNA Report Released Date/Time: Jun 07, 2024 01:44 PM Reporting Lab: [address] [address] Performing Lab: [address] [address] MAGNESIUM 1.7 mg/dL 1.6-2.6 Jun 05, 2024 09:00 AM [facility] FSH (STL-MA) Specimen Type: SERUM Comment: Test Performed by Sander Thornton, [facility], [address] [place] [address] Tommie Garcia M.D., Ph.D., Director of Laboratories , [facility] [id number] Ordering Provider: EMILIA CALHOUN Report Released Date/Time: Jun 05, 2024 08:45 AM Reporting Lab: [address] [address] Performing Lab: [address] FSH (STL-MA) 5.5 m[IU]/mL 1.4-12.8 Jun 05, 2024 09:00 AM [facility] LUTEINIZING HORMONE Specimen Type: SERUM Comment: Test Performed by [facility], [facility], [address] [place], [place] Tommie Garcia M.D., Ph.D., Director of Laboratories , [facility] [id number] Ordering Provider: EMILIA CALHOUN Report Released Date/Time: Jun 05, 2024 08:45 AM Reporting Lab: [facility] [address] [address] Performing Lab: [facility] [address] [facility] LUTEINIZING HORMONE 2.7 m[IU]/mL 1.6-15.2 Jun 05, 2024 09:00 AM [facility] PROLACTIN (L-Eff 08/15) Specimen Type: PLASMA No comment entered. Ordering Provider: EMILIA CALHOUN Report Released Date/Time: Jun 05, 2024 08:45 AM Reporting Lab: [facility] [address] [facility] [address] Performing Lab: [facility] [address] [address] PROLACTIN (STL-Eff 08/15) 41.98 ng/mL H 3.5-19.4 Jun 05, 2024 09:00 AM [facility] TSH (MA-PB) Specimen Type: SERUM No comment entered. Ordering Provider: EMILIA CALHOUN Report Released Date/Time: Jun 05, 2024 08:45 AM Reporting Lab: [facility] [address] [address] Performing Lab: [facility] [address] [address] TSH 3.510 u[IU]/mL 0.47-5 Jun 05, 2024 09:00 AM [facility] FREE T4 (MA-PB) Specimen Type: SERUM No comment entered. Ordering Provider: EMILIA CALHOUN Report Released Date/Time: Jun 05, 2024 08:45 AM Reporting Lab: [facility] [address] [address] Performing Lab: [facility] [address] [address] FREE T4 (MA-PB) 0.78 ng/mL 0.7-1.48 May 17, 2024 10:20 AM [facility] JAK2 MUTATION (STL) Specimen Type: PLASMA Comment: A JAK2 [id number] mutation is not detected. No mutation is detected in exon 12 of JAK2. Ordering Provider: JONATHON CHAU Report Released Date/Time: May 17, 2024 09:56 AM Reporting Lab: [address] [address] Performing Lab: [address] JAK2 MUTATION (STL) NOT DETECTED NOT DETECTED May 17, 2024 10:20 AM [facility] LDH Specimen Type: PLASMA Comment: No hemolysis noted. Ordering Provider: JONATHON CHAU Report Released Date/Time: May 17, 2024 09:56 AM Reporting Lab: [facility] [address] [address] Performing Lab: [facility] [address] [address] LDH 272 U/L H 125-243 May 17, 2024 10:20 AM [facility] HAPTOGLOBIN (STL) Specimen Type: PLASMA Comment: No hemolysis noted. Ordering Provider: JONATHON CHAU Report Released Date/Time: May 17, 2024 09:56 AM Reporting Lab: [facility] [address] [address] Performing Lab: [address] [address] HAPTOGLOBIN (STL) 94 mg/dL 44-215 May 17, 2024 10:20 AM [facility] GGT GAMMA-GT Specimen Type: PLASMA Comment: No hemolysis noted. Ordering Provider: JONATHON CHAU Report Released Date/Time: May 17, 2024 09:56 AM Reporting Lab: [facility] [address] [place] [address] Performing Lab: [address] [address] GGT GAMMA-GT 81 [IU]/L H 12-64 May 17, 2024 10:20 AM [facility] COMPREHENSIVE METABOLIC PANEL Specimen Type: PLASMA Comment: No hemolysis noted. Ordering Provider: JONATHON CHAU Report Released Date/Time: May 17, 2024 09:56 AM Reporting Lab: [address] [address] Performing Lab: [address] [address] CREATININE 1.05 mg/dL 0.7-1.3 UREA NITROGEN 16.4 [...] 75.4 >60 May 17, 2024 10:20 AM [facility] CBC Specimen Type: BLOOD No comment entered. Ordering Provider: JONATHON CHAU Report Released Date/Time: May 17, 2024 09:56 AM Reporting Lab: [address] [address] Performing Lab: [address] [address] WBC 5.0 10*3/uL 3.6-11.2 RBC 5.01 10*6/uL [...] AM QUIT TOBACCO >7 YEARS AGO [facility] Tobacco Use History This section includes a history of the smoking, or tobacco-related health factors, that were collected on or before the date of the Encounter. The data comes from the [place] facility where the Encounter took place. Date/Time Smoking Status/Tobacco Use Comment Juan borden Sep 30, 2015 10:12 AM QUIT TOBACCO >7 YEARS AGO [facility] Oct 29, 2014 10:23 AM QUIT TOBACCO >7 YEARS AGO [facility] Dec 27, 2013 01:27 PM QUIT TOBACCO >7 YEARS AGO [facility] Feb 24, 2013 02:01 PM LIFETIME NON-USER OF TOBACCO [facility] Feb 11, 2009 10:09 AM QUIT TOBACCO >7 YEARS AGO [facility] Oct 06, 2006 09:30 AM CURRENT NON-TOBACC O USER-HX OF USE [facility] Oct 06, 2006 09:30 AM TOBACCO TERMINATION STAGE [facility] Advance Directives: All historical and current Section Date Range: From patient's date of to the date document was created. This section includes ALL of a patient's completed or amended [place] Advance and Rescinded Directives. The entries below indicate that a directive exists for the patient, but an actual copy is not included with this document. The data comes from all [facility]. Date Advance Directives Provider Source Jan 19, 2017 ADVANCE DIRECTIVE DISCUSSION ERICK BARDALES [facility] Radiology Reports: +/- 30 days of the [...] CHEST W/CONTRAS T & 3D: CHET WALKER [id number] -1950 M Ex Date: JUN 07, 2024@14:29 Req Phys: JOHANA REDDY Loc: [facility] (Req'g Im Loc: [facility]-CT IMAGING Service: [facility], [facility] [address] [place] [address] (Case [id number] COMPLETE) CT THORAX, DIAGNOSTIC, W/CONTRAS(CT Detailed) CPT:18902 Contrast Media : Non-ionic Iodinated Reason for Study: Shortness of breath (Case [id number] COMPLETE) UNLISTED CT PROCEDURE (CT Detailed) CPT:02980 CPT Modifiers : 52 REDUCED SERVICES Clinical History: Responsible Attending: Dr. Orantes Attending Contact Number: [id number] Resident Contact Number: CT chest, high resolution Allergies listed in CPRS chart: TRAMADOL Creatinine: CREATININE 0.87 mg/dL 03/06/2024 09:52 /eGFR: STL EGFR (within one year). CREATININE 0.87 mg/dL (03/06/24 09:52) Wt: 233.1 lb [105.73 kg] (05/17/2024 08:37) History of: Renal failure, chronic or acute renal disease: NO Report Status: Verified Date Reported: JUN 07, 2024 Date Verified: JUN 07, 2024 Economic Development Coordinator E-Sig:/ES/LISHA Ryanne UNDERWOODTOMAS Report: , [id number], [id number] INDICATION: Shortness of breath COMPARISON: None TECHNIQUE: [...] suggested. Primary Interpreting Staff: LISHA BRYANT, RADIOLOGIST (Economic Development Coordinator) /LISHA AVITIA [facility] Jun 07, 2024 02:[address] ABD PEL W/CONT & 3D: CHET WALKER [id number] -1950 M Exm Date: JUN 07, 2024@14:28 Req Phys: JOHANA REDDY Pat Loc: [facility] (Req'g Img Loc: [facility]-CT IMAGING [facility] Service: Unknown [facility], [facility] [address] [place] [address] (Case [id number] COMPLETE) CT ABDOMEN AND PELVIS W/CONTRAST (CT Detailed) CPT:95739 Contrast Media : Non-ionic Iodinated Reason for Study: enlarged spleen (Case 3137 COMPLETE) CT 3D RENDERING W INDEPENDENT WOR(CT Detailed) CPT:86803 Clinical History: Responsible Attending: Dr. Orantes Attending Contact Number: [id number] Resident Contact Number: spleenomegally, evaluation for liver, lymphadenopathy Allergies listed in CPRS chart: TRAMADOL Creatinine:CREATININE 0.87 mg/dL 03/06/2024 09:52 /eGFR: STL EGFR (within one year). CREATININE 0.87 mg/dL (03/06/24 09:52) Wt: 233.1 lb [105.73 kg] (05/17/2024 08:37) History of: Renal failure, chronic or acute renal disease: NO Report Status: Verified Date Reported: JUN 07, 2024 Date Verified: JUN 07, 2024 Economic Development Coordinator E-Sig:/ES/LISHA BRYANT Report: , [id number], [id number] INDICATION: Shortness of breath COMPARISON: None TECHNIQUE: [...] suggested. Primary Interpreting Staff: LISHA BRYANT, RADIOLOGIST (Economic Development Coordinator) /LISHA AVITIA [facility] Encounter Notes: All associated encounter notes This section contains the clinical notes associated to the Encounter. Date/Time Encounter Note(s) Provider Source May 31, 2024 01:22 PM PODIATRY NOTE: LOCAL TITLE: PODIATRY NOTE STANDARD TITLE: PODIATRY NOTE DATE OF NOTE: MAY 31, 2024@13:22 ENTRY DATE: MAY 31, 2024@13:23:03 AUTHOR: NADIRA BUSBY EXP COSIGNER: URGENCY: STATUS: COMPLETED S:PT PRESENTS WITH CC OF ROUTINE FOOT EXAM. HE COMPLAINS OF NEUROPATHY PAIN. PT DENIES ANY SYSTEMIC SIGNS OF INFECTION OR RECENT TRAUMA. HE IS DIABETIC. HE IS FOLLOWED BY HIS PCP FOR HIS DM. HE GIVES HX OF NEUROPATHY. HE IS NOW USING CONSTANT MONITORING OF THE BLOOD SUGAR. HE COMPLAINS OF CRAMPING AT NIGHT ON OCCASSION. HE DENIES ANY OTHER CHANGES TO HIS MEDICAL HX SINCE HIS LAST FOOT EXAM. SYMPTOMS WORSENDED BY: WALKING OR SITTING OR AT NIGHT. SYMTOMS IMPROVED BY: MEDICATION PAIN SCALE: 2/10 SECONDARY TO NEUROPATHY HGA1C:HGA1C 8.1 % ALLERGIES:TRAMADOL O: PT IS ALERT AND ORIENTED X 3 AND IN NAD. HE REQUIRES ASSISTIVE DEVICES SUCH CANE FOR AMBULATING IN THE CLINIC. HE IS WEARING HIS [place] ISSUED SHOES ON EXAM. VASC: PALPABLE PULSES HOWEVER DECREASED. NO ISCHEMIC CHANGES NOTED. NEGATIVE DIGITAL HAIR NOTED. CAPP REFILL LESS THAN 3 SECONDS. FEET ARE WARM TO TOUCH. NEURO: GROSSLY INTACT. LIGHT SENSATION DECREASED PER SEMMES RACHELLE AT MOST SITES B/L. NO TINEL'S SIGN NOTED ON EXAM. DERM: TEMPERATURE, TONE, AND TURGOR WITHIN NORMAL LIMITS. NO OPEN WOUNDS NOTED WITH NO ASCENDING CELLULITIS NOTED. PLANTAR SKIN IS DRY AND FLAKING. HEELS ARE DRY AND CRACKING. NAILS MALFORMED ELONGATED THICKENED AND DYSTROPHIC X 10. MUS/SK: GOOD MUSCLE STRENGTH IN ALL 4 QUADRANTS. PES CAVUS FOOT TYPE NOTED. ON STANCE SIGNIFICNAT HAMMRING OF ALL DIGITS. FIRST RAY ELEVATED B/L AND LIFTING OFF THE GROUND ON THE LEFT WITH SEVERE INVERSION OF THE REARFOOT ON THE FOREFOOT WITH SIGNIFICANT C CURVATURE NOTED LATERALLY. LEFT LIMB SHORTAGE IS NOTED WELL. CLUB FOOT ON THE RIGHT. B/L HALLUX DIGITS HAVE SEVERE CONTRACTURE AT THE IPJ. CRUZ STUDIES: PER VASCULAR PROVIDER: CRUZ: RIGHT LEFT CRUZ: >1.0 CRUZ: 1.40 >1.0 (SUPERVISOR ACCOUNTS RECEIVABLE) TOE PRESSURES (mm Hg) RIGHT: 94 LEFT: 173 IMPRESSION: Ankle brachial indices are falsely elevated. Normal lower extremity arterial Doppler study at rest based on Doppler wave forms and within normal toe pressures. A/P 1 PES CAVUS AND HAMMER TOES B/L/ PT ADVISED OF NEED FOR PROPER SHOE GEAR. PT ADVISED OF NEED FOR HIS CUSTOM MADE INSERTS TO OFF LOAD PROMINANT MET HEADS AND HEEL. DISCUSSED NEW SHOES AND INSERTS AND PT IS NOT INTERESTED AGAIN AT THIS TIME. 2 DM WITH NEUROPATHY/ PT EDUCATION. PT TO F/U WITH PCP. PT TO WEAR HIS [place] ISSUED SHOES. DISCUSSED NEW SHOES AND PT IS NOT INTERESTED AT THIS TIME. 3 ANKLE INSTABILITY/ PT TO WEAR HIS CUSTOM MADE INSERTS. 4 XEROSIS/ PT ADVISED TO APPLY MOISTURIZER HE DOES NOT LIKE THE EUCERIN TO THE PLANATAR FEET AND DRY BETWEEN DIGITS AFTER APPLYING. D/C IF ANY PROBLEMS. DISCUSSED NEED FOR COMPLIANCE. 6 ONYCHOMYCOSIS/ MANUALLY DEBRIDED X 10. BETADINE APPLIED ROUTINELY. 7 CLUB FOOT RIGHT/ PT TO WEAR CUSTOM MADE ORHTOTICS AND SHOES WITH PRECAUTIONS. PT TO RTC FOR F/U IN 3 MONTHS. DISCUSSED TREATMENT OPTIONS WITH PATIENT AND PATIENT ADVISED TO GO TO THE ER IF ANY INCREASE IN PAIN REDNESS OR ERYTHEMA IS NOTED. PT STATES UNDERSTANDING. MEDICATION RECONCILLIATION/ ALL PODIATRIC GENERATED MEDICATIONS RECONCILLED AND REVIEWED. PER [place] DIRECTIVE 1122 PT IS CONSIDERED TO BE MODERATE TO HIGH RISK. /shen/ NADIRA BUSBY Staff Physician, Podiatry Signed: 05/31/2024 14:37 NADIRA BUSBY [facility]
--- OUTSIDE RECORDS SUMMARY | 2024-11-17 03:45 | XMS_ITS | Encounter Summary ---
Author Name [facility] [place] [facility] [place] [facility] [place] Address [address] [place] [address] Care Team Providers Care Sedimentationist Name Role Phone MANUEL BAIRD Primary Care [...] PART A Apr 08, 2017 PART A [id number] ASHLEY WALKER PATIENT Selected Encounter This section includes the information on record at [place] for the Encounter. Date/Time Encounter Type Encounter Description Reason Provider Source Jun 05, 2024 08:40 AM OFF/OP CNSLTJ NEW/EST MOD 40 ENDOCRINOLOGY ICD-10-CM E23.7 Disorder of pituitary gland, unspecified ADILSON SILVEIRA Encounter Template Text not used by [facility] Assessments - Encounter Diagnoses This section includes the primary and secondary diagnoses documented for the Encounter. Date/Time Primary/Secondary Diagnosis Diagnosis Name Provider Source Jun 05, 2024 09:01 AM PRIMARY Disorder of pituitary gland, unspecified MELANIE CALHOUN [facility] Plan of Treatment: Future Appointments (+ 6 months) and Future Tests (+/- 45 days) The Plan of Treatment section includes future care activities for the patient from [facility] [place] [facility]. This section includes future appointments and future orders which are active, pending or scheduled. Future Appointments This section includes appointments that were scheduled to occur 6 months from the date of the Encounter, up to a maximum of 20 appointments. The data comes from all [place] treatment facilities. Appointment Date/Time Appointment Type Appointme nt Facility Name Jun 07, 2024 12:30 PM AMBULATORY - MEDICINE [facility] Jun 07, 2024 01:30 PM AMBULATORY - NONE [facility] Jun 08, 2024 10:00 AM AMBULATORY - MEDICINE [facility] Jun 09, 2024 01:00 PM AMBULATORY - SURGERY [facility] Jun 19, 2024 07:00 AM AMBULATORY - MEDICINE [facility] Jun 19, 2024 08:00 AM AMBULATORY - NONE [facility] Jun 29, 2024 10:15 AM AMBULATORY - MEDICINE [facility] Jun 29, 2024 01:00 PM AMBULATORY - SURGERY [facility] Jul 03, 2024 10:30 AM AMBULATORY - MEDICINE [facility] Jul 14, 2024 12:54 PM AMBULATORY - SURGERY [facility] Jul 20, 2024 10:00 AM AMBULATORY - MEDICINE [facility] Aug 02, 2024 09:45 AM AMBULATORY - MEDICINE [facility] Aug 24, 2024 10:00 AM AMBULATORY - MEDICINE [facility] Aug 24, 2024 10:30 AM AMBULATORY - MEDICINE [facility] Aug 30, 2024 09:30 AM AMBULATORY - MEDICINE [facility] Aug 31, 2024 01:00 PM AMBULATORY - SURGERY [facility] Sep 21, 2024 01:30 PM AMBULATORY - MEDICINE [facility] Sep 22, 2024 11:00 AM AMBULATORY - MEDICINE [facility] Sep 29, 2024 12:30 PM AMBULATORY - MEDICINE [facility] Oct 02, 2024 09:30 AM AMBULATORY - MEDICINE [facility] Lab Results: +/- 30 days [...] Range Comment Jun 19, 2024 07:30 AM [facility] PT/INR NEW ([facility] Specimen Type: PLASMA No comment entered. Ordering Provider: ROSE PITTS Report Released Date/Time: Jun 12, 2024 10:14 AM Reporting Lab: [address] [address] Performing Lab: [address] [address] PROTIME 13.3 s H 9.4-12.5 INR VALUE 1.2 {INR} Jun 19, 2024 07:30 AM [facility] BASIC METABOLIC PANEL Specimen Type: PLASMA Comment: K result may show a positive bias due to hemolysis. Specimen slightly hemolyzed. Ordering Provider: ROSE PITTS AEJulián Report Released Date/Time: Jun 12, 2024 10:14 AM Reporting Lab: [address] [address] Performing Lab: [address] [address] CREATININE 0.85 mg/dL 0.7-1.3 UREA NITROGEN 11.9 mg/dL 9.0-25.0 GLUCOSE 106 mg/dL H 72-99 SODIUM 141 meq/L 136-145 POTASSIUM 4.4 meq/L 3.5-5 CHLORIDE 110 meq/L H 98-107 CARBON DIOXIDE 22 meq/L 22-31 CALCIUM 9.9 mg/dL 8.4-10.4 EGFR (CKD-EPI 2020) 92.3 >60 Jun 19, 2024 07:30 AM [facility] CBC Specimen Type: BLOOD No comment entered. Ordering Provider: ROSE PITTS Report Released Date/Time: Jun 12, 2024 10:14 AM Reporting Lab: [facility] [address] [place] [phone] Performing Lab: [address] [address] WBC 5.1 10*3/uL 3.6-11.2 RBC 5.31 10*6/uL [...] 2.3 1.0-7.0 Jun 19, 2024 07:29 AM [facility] GLUCOSE,BLOOD-poct (STL) Specimen Type: BLOOD Comment: Test Performed by: [id number] Meter #: [id number] Ordering Provider: CARROLL HAGEN Report Released Date/Time: Jun 19, 2024 06:58 PM Reporting Lab: [address] [address] Performing Lab: [address] [address] GLUCOSE,BLOOD-p oct (STL) 108 mg/dL H 72-99 Jun 09, 2024 11:48 AM [facility] MICRAL/CREAT PROFILE (STL) Specimen Type: URINE No comment entered. Ordering Provider: WELLINGTON SERNA Report Released Date/Time: Jun 07, 2024 01:44 PM Reporting Lab: [facility] [address] [facility] [address] Performing Lab: [facility] [address] [facility] [address] URINE ALBUMIN (PB-STL) 167.5 mg/L uACR (STL) 103 mg/g H 0-29 CREATININE URINE/OTHERS 163.4 mg/dL 63-166 Jun 07, 2024 02:22 PM [facility] BRAIN NATRIURETIC PEPTIDE Specimen Type: PLASMA No comment entered. Ordering Provider: WELLINGTON SERNA Report Released Date/Time: Jun 07, 2024 01:32 PM Reporting Lab: [facility] [address] [facility] [address] Performing Lab: [facility] [address] [facility] [address] BRAIN NATRIURETIC PEPTIDE 198.9 pg/mL H 0-100 Jun 07, 2024 02:22 PM [facility] hsCRP Specimen Type: SERUM No comment entered. Ordering Provider: WELLINGTON SERNA Report Released Date/Time: Jun 07, 2024 01:42 PM Reporting Lab: [facility] [address] [facility] [address] Performing Lab: [facility] [address] [facility] [address] hsCRP 4.65 mg/L H 0-3.1 Jun 07, 2024 02:22 PM [facility] MAGNESIUM Specimen Type: PLASMA No comment entered. Ordering Provider: WELLINGTON SERNA Report Released Date/Time: Jun 07, 2024 01:44 PM Reporting Lab: [place] [address] [facility] [address] Performing Lab: [facility] [address] [facility] [address] MAGNESIUM 1.7 mg/dL 1.6-2.6 Jun 05, 2024 09:00 AM [facility] LUTEINIZING HORMONE Specimen Type: SERUM Comment: Test Performed by [employer] [place], [employer] [place], [address] [place] [address] Tommie Garcia M.D., Ph.D., Director of Laboratories , CLIA [id number] Ordering Provider: MELANIE CALHOUN Report Released Date/Time: Jun 05, 2024 08:45 AM Reporting Lab: [address] [address] Performing Lab: [address] LUTEINIZING HORMONE 2.7 m[IU]/mL 1.6-15.2 Jun 05, 2024 09:00 AM [facility] FSH (STL-MA) Specimen Type: SERUM Comment: Test Performed by [facility], [employer] [facility], [address] [place] [address] Tommie Garcia M.D., Ph.D., Director of Laboratories , CLIA [id number] Ordering Provider: MELANIE CALHOUN Report Released Date/Time: Jun 05, 2024 08:45 AM Reporting Lab: [facility] [address] [place] [phone] Performing Lab: [address] FSH (STL-MA) 5.5 m[IU]/mL 1.4-12.8 Jun 05, 2024 09:00 AM [facility] PROLACTIN (STL-Eff 08/15) Specimen Type: PLASMA No comment entered. Ordering Provider: MELANIE CALHOUN Report Released Date/Time: Jun 05, 2024 08:45 AM Reporting Lab: [facility] [address] [place] [phone] Performing Lab: [facility] [address] [facility] [address] PROLACTIN (STL-Eff 08/15) 41.98 ng/mL H 3.5-19.4 Jun 05, 2024 09:00 AM [facility] TSH (MA-PB) Specimen Type: SERUM No comment entered. Ordering Provider: MELANIE CALHOUN Report Released Date/Time: Jun 05, 2024 08:45 AM Reporting Lab: [facility] [address] [facility] [address] Performing Lab: [facility] [address] [facility] [address] TSH 3.510 u[IU]/mL 0.47-5 Jun 05, 2024 09:00 AM [facility] FREE T4 (MA-PB) Specimen Type: SERUM No comment entered. Ordering Provider: MELANIE CALHOUN Report Released Date/Time: Jun 05, 2024 08:45 AM Reporting Lab: [facility] [address] [facility] [address] Performing Lab: [facility] [address] [facility] [address] FREE T4 (MA-PB) 0.78 ng/mL 0.7-1.48 May 17, 2024 10:20 AM [facility] JAK2 MUTATION (STL) Specimen Type: PLASMA Comment: A JAK2 [id number] mutation is not detected. No mutation is detected in exon 12 of JAK2. Ordering Provider: JONATHON CHAU Report Released Date/Time: May 17, 2024 09:56 AM Reporting Lab: [facility] [address] [facility] [address] Performing Lab: [facility] [address] [facility] JAK2 MUTATION (STL) NOT DETECTED NOT DETECTED May 17, 2024 10:20 AM [facility] LDH Specimen Type: PLASMA Comment: No hemolysis noted. Ordering Provider: JONATHON CHAU Report Released Date/Time: May 17, 2024 09:56 AM Reporting Lab: [facility] [address] [facility] [address] Performing Lab: [facility] [address] [facility] [address] LDH 272 U/L H 125-243 May 17, 2024 10:20 AM [facility] HAPTOGLOBIN (STL) Specimen Type: PLASMA Comment: No hemolysis noted. Ordering Provider: JONATHON CHAU Report Released Date/Time: May 17, 2024 09:56 AM Reporting Lab: [facility] [address] [place] [address] Performing Lab: [address] [address] HAPTOGLOBIN (STL) 94 mg/dL 44-215 May 17, 2024 10:20 AM [facility] GGT GAMMA-GT Specimen Type: PLASMA Comment: No hemolysis noted. Ordering Provider: JONATHON CHAU Report Released Date/Time: May 17, 2024 09:56 AM Reporting Lab: [facility] [address] [place] [address] Performing Lab: [facility] [address] [facility] [address] GGT GAMMA-GT 81 [IU]/L H 12-64 May 17, 2024 10:20 AM [facility] COMPREHENSIVE METABOLIC PANEL Specimen Type: PLASMA Comment: No hemolysis noted. Ordering Provider: JONATHON CHAU Report Released Date/Time: May 17, 2024 09:56 AM Reporting Lab: [facility] [address] [place] [address] Performing Lab: [facility] [address] [place] [phone] CREATININE 1.05 mg/dL 0.7-1.3 UREA NITROGEN 16.4 [...] 75.4 >60 May 17, 2024 10:20 AM [facility] CBC Specimen Type: BLOOD No comment entered. Ordering Provider: JONATHON CHAU Report Released Date/Time: May 17, 2024 09:56 AM Reporting Lab: [facility] [address] [facility] [address] Performing Lab: [facility] [address] [facility] [address] WBC 5.0 10*3/uL 3.6-11.2 RBC 5.01 10*6/uL [...] Height Weight Body Mass Index Source Jun 05, 2024 08:06 AM 98.4 77 131/83 18 96 0 235.7 34 [facility] Social History: Smoking Status (Most current) and Tobacco Use (All prior to encounter date) This section includes the most current, and the historical, smoking and tobacco- related health factors from the [place] facility where the Encounter took place. Current Smoking Status This section includes the most current smoking, or tobacco-related health factor, from the [place] facility where the Encounter took place. Date/Time Current Smoking Status Comment Radhika ity Aug 11, 2016 10:34 AM QUIT TOBACCO >7 YEARS AGO [facility] Tobacco Use History This section includes a history of the smoking, or tobacco-related health factors, that were collected on or before the date of the Encounter. The data comes from the [place] facility where the Encounter took place. Date/Time Smoking Status/Tobacco Use Comment F acility Sep 30, 2015 10:12 AM QUIT TOBACCO >7 YEARS AGO [facility] Oct 29, 2014 10:23 AM QUIT TOBACCO >7 YEARS AGO [facility] Dec 27, 2013 01:27 PM QUIT TOBACCO >7 YEARS AGO [facility] Feb 24, 2013 02:01 PM LIFETIME NON-USER OF TOBACCO [facility] Feb 11, 2009 10:09 AM QUIT TOBACCO >7 YEARS AGO [facility] Oct 06, 2006 09:30 AM CURRENT NON-TOBACC O USER-HX OF USE [facility] Oct 06, 2006 09:30 AM TOBACCO TERMINATION STAGE [facility] Advance Directives: All historical and current Section Date Range: From patient's date of to the date document was created. This section includes ALL of a patient's completed or amended [place] Advance and Rescinded Directives. The entries below indicate that a directive exists for the patient, but an actual copy is not included with this document. The data comes from all [facility]. Date Advance Directives Provider Source Jan 19, 2017 ADVANCE DIRECTIVE DISCUSSION ERICK BARDALES [facility] Radiology Reports: +/- 30 days [...] the Encounter. The data comes from all [place] treatment facilities. Date/Time Radiology Report Provider Source Jun 07, 2024 02:[address] CHEST W/CONTRAS T & 3D: CHET WALKER [id number] -[id number] M Exm Date: JUN 07, 2024@14:29 Req Phys: JOHANA REDDY Loc: [facility]-ONCOLOGY [facility]I (Req'g Img Loc: YASH-CT IMAGING Y[facility] Service: [facility], [facility] [address] [place] [address] (Case [id number] COMPLETE) CT THORAX, DIAGNOSTIC, W/CONTRAS(CT Detailed) CPT:40429 Contrast Media : Non-ionic Iodinated Reason for Study: Shortness of breath (Case [id number] COMPLETE) UNLISTED CT PROCEDURE (CT Detailed) CPT:38256 CPT Modifiers : 52 REDUCED SERVICES Clinical History: Responsible Attending: Dr. Orantes Attending Contact Number: [phone] Resident Contact Number: CT chest, high resolution Allergies listed in CPRS chart: TRAMADOL Creatinine: CREATININE 0.87 mg/dL 03/06/2024 09:52 /eGFR: STL EGFR (within one year). CREATININE 0.87 mg/dL (03/06/24 09:52) Wt: 233.1 lb [105.73 kg] (05/17/2024 08:37) History of: Renal failure, chronic or acute renal disease: NO Report Status: Verified Date Reported: JUN 07, 2024 Date Verified: JUN 07, 2024 Carton Catcher E-Sig:/ES/LISHA BRYANT Report: , [id number], [id number] INDICATION: Shortness of breath COMPARISON: None TECHNIQUE: [...] suggested. Primary Interpreting Staff: LISHA BRYANT, RADIOLOGIST (Carton Catcher) /LISHA AVIT[facility] Jun 07, 2024 02:[address] ABD PEL W/CONT & 3D: CHET WALKER [id number] -1950 M Ex Date: JUN 07, 2024@14:28 Req Phys: JOHANA REDDY Loc: [facility]-ONCOLOGY [facility] (Req'g Im Loc: YASH-CT IMAGING YASH Service: Unknown [address] [address] (Case [id number] COMPLETE) CT ABDOMEN AND PELVIS W/CONTRAST (CT Detailed) CPT:13107 Contrast Media : Non-ionic Iodinated Reason for Study: enlarged spleen (Case 3137 COMPLETE) CT 3D RENDERING W INDEPENDENT WOR(CT Detailed) CPT:59146 Clinical History: Responsible Attending: Dr. Orantes Attending Contact Number: [phone] Resident Contact Number: spleenomegally, evaluation for liver, lymphadenopathy Allergies listed in CPRS chart: TRAMADOL Creatinine:CREATININE 0.87 mg/dL 03/06/2024 09:52 /eGFR: STL EGFR (within one year). CREATININE 0.87 mg/dL (03/06/24 09:52) Wt: 233.1 lb [105.73 kg] (05/17/2024 08:37) History of: Renal failure, chronic or acute renal disease: NO Report Status: Verified Date Reported: JUN 07, 2024 Date Verified: JUN 07, 2024 Carton Catcher E-Sig:/ES/LISHA BRYANT Report: , [id number], [id number] INDICATION: Shortness of breath COMPARISON: None TECHNIQUE: [...] suggested. Primary Interpreting Staff: LISHA BRYANT, RADIOLOGIST (Carton Catcher) /LISHA [facility] Encounter Notes: All associated encounter notes This section contains the clinical notes associated to the Encounter. Date/Time Encounter Note(s) Provider Source Jun 05, 2024 08:43 AM ENDOCRINOLOGY CONSULT: LOCAL TITLE: ENDOCRINOLOGY OUTPATIENT CONSULT ST STANDARD TITLE: ENDOCRINOLOGY CONSULT DATE OF NOTE: JUN 05, 2024@08:43 ENTRY DATE: JUN 05, 2024@08:44:15 AUTHOR: LUIS ENRIQUE CALHOUN COSIGNER: ADILSON SELLERS URGENCY: STATUS: COMPLETED ENDOCRINOLOGY OUTPATIENT CONSULT STL Has ADDENDA NEW PATIENT History of present illness: CHET WALKER is a 74 y/o M w/ Hx of HTN, HLD, OA of knee, fatty liver, asthma, DM w/ neuropathy, Obesity, GERD, PUD, presenting for Endo consult with regards to Hx of pituitary neoplasm. Per Endocrine Referral: Pt had Hx of pituitary adenoma Dx'ed over 15 years ago at unspecified OSH. Was previously treated with Bromocriptine 2.5 mg from 2384-4465 [facility]. Pt had reported tumor shrinkage due to treatment, but not imaging was available on file to confirm this. Pt had not had any recurrence of Sx after treatment (had had Headache on initial diagnosis); pt also reportedly had visual field testing last performed 11/2023 that was Negative for any VF defects. Optometry recommended an Endocrinology consult for further follow-up. Per pt report today, he was Dx'ed with a pitutiary mass 30+ years ago, and treated with PCP. Does not remember much of the specifics, but reports that he had headaches at time of diagnosis pao to brain freeze, without any erectile dysfunction at that time or any other symptoms. He is able to confirm that he was treated specifically with Bromocriptine in the past. Reports that 30+ years ago, the adenoma was reportedly the size of a grape. Pt today denies having any of the following Sx: H/A's; vision changes; focal deficits (does have DM with b/l knee replacement and neuropathy, and therefore uses a cane to ambulate); pectoral tenderness; nipple discharge; gynecomastia; any increasing head/hand/foot size. Per documentation, had 11/16/23 Optometry assessment that was Negative for any bitemporal defects that would be c/w chiasmal compression. Seeing Optometry again this 06/09/24 for bifocal adjustment. Rx/Home Meds (confirmed with pt): Ozempic 1 mg qweekly; Albuterol; Atorvastatin 80 mg daily; Duloxetine 60 mg daily; Novolog 6 units with dinner; HCTZ 12.5 mg- Lisinopril 20 mg daily; Meloxicam 7.5 mg daily (not taking); Metformin 1000 mg BID; Multivitamin; Methocarbamol 500 mg BID for muscle spasm; Pregabalin 200 mg BID; Omeprazole 20 mg qAM; Toujeo 90 units daily; FreeStyle Pretty 3; Naproxen 220 mg PRN 05/17/24 CBC: Negative for any leukocytosis or anemia; positive for thrombocytopenia (Plt 103) 05/17/24 CMP: no electrolyte abnormalities; slightly elevated AST at 37; no renal insufficiency; LDH and GGT high 03/06/24 TSH of 2.984 (wnl) 11/11/23 A1c of 8.8% --> 03/06/24 A1c of 7.0% Past 10/06/06 Prolactin level of 8.26 Pt has no brain imaging on file (neither MRI Brain nor a Head CT, with the exception of 05/29/22 CT Maxillofacial that did not mention any other structures of the brain, including pituitary gland). He does however report having an upcoming CT Head scheduled for this 06/07/24. ROS otherwise positive only for dyspnea on exertion and orthopnea, without any LE edema; he reports also being scheduled to see a Sandblasting Supervisor this Wednesday as well. 10 pt ROS as above per HPI or o/w negative Past Medical History: 1) Asthma (SNOMED CT 968456155) 2) Gastro-esophageal reflux disease (SNOMED CT 161514876) 3) Peptic Ulcer Disease * (ICD-9-CM 533.90) 4) Hypertension (SNOMED CT 94441243) 5) Pituitary Neoplasms (ICD-9-CM 194.3) 6) Hyperlipidemia (SNOMED CT 59784988) 7) Erectile dysfunction associated with type 2 diabetes mellitus 8) Osteoarthritis of knee 9) Diabetes mellitus with neuropathy 10) Low back pain 11) Obesity 12) Patellofemoral syndrome of right knee 13) History of left total knee replacement 14) History of arthroplasty of right knee 15) Exposure to potentially hazardous substance 16) Fatty liver Medications: Active Outpatient Medications (excluding Supplies): Issue Date Status Last Fill Active Outpatient Medications Refills Expiration ========= 1) ACCU-CHEK GUIDE (GLUCOSE) TEST STRIP ACTIVE Issu:04-07-24 Qty: 100 for 50 days Sig: USE 1 STRIP Refills: 3 Last:04-09-24 FOR BLOOD TEST TWICE A DAY ALTERNATING Expr:04-08-25 TIMES EACH DAY *STABLE INSULIN THERAPY* March 2) ALBUTEROL 90MCG (CFC-F) 200D ORAL INHL ACTIVE Issu:04-07-24 Qty: 2 for 90 days Sig: INHALE 1 PUFF Refills: 1 Last:04-09-24 BY ORAL INHALATION FOUR TIMES A DAY Expr:04-08-25 NEEDED FOR BREATHING. SHAKE WELL. RINSE MOUTHPIECE FREQUENTLY TO PREVENT CLOGGING. 3) AMMONIUM LACTATE 12% CREAM Qty: 140 for ACTIVE Issu:02-11-24 30 days Sig: APPLY LIGHTLY TO Refills: 3 Last:02-11-24 AFFECTED AREA(S) TWICE A DAY EXTERNAL Expr:02-11-25 USE ONLY. DO NOT APPLY TO RED, ITCHY, OR SORE SKIN. 4) ATORVASTATIN CALCIUM 80MG TAB Qty: 45 ACTIVE Issu:04-07-24 for 90 days Sig: TAKE ONE-HALF TABLET Refills: 3 Last:04-22-24 BY MOUTH EVERY EVENING FOR HIGH Expr:04-08-25 CHOLESTEROL 5) CARBOXYMETHYLCELLULOSE NA 0.5% OPH SOLN ACTIVE Issu:05-12-24 Qty: 30 for 60 days Sig: INSTILL 1 Refills: 5 Last:05-13-24 DROP IN BOTH EYES FOUR TIMES A DAY Expr:05-13-25 NEEDED FOR DRY EYE(S) 6) DEXTROSE 24GM/31GM SQUEEZE TUBE Qty: 3 ACTIVE Issu:01-24-24 for 30 days Sig: TAKE 1 TUBE BY MOUTH Refills: 5 Last:01-25-24 NEEDED FOR LOW BLOOD SUGAR REPEAT Expr:01-24-25 DOSE IF HYPOGLYCEMIA CONTINUES 15 MINUTES AFTER THE FIRST DOSE. 7) DULOXETINE HCL 60MG EC CAP Qty: 90 for ACTIVE Issu:04-07-24 90 days Sig: TAKE ONE CAPSULE BY Refills: 3 Last:04-22-24 MOUTH ONCE A DAY FOR NERVE PAIN DO NOT Expr:04-08-25 ABRUPTLY DISCONTINUE MEDICATION. 8) HCTZ 12.5/LISINOPRIL 20MG TAB Qty: 180 ACTIVE Issu:02-02-24 for 90 days Sig: TAKE 2 TABLETS BY Refills: 1 Last:02-04-24 MOUTH EVERY MORNING TO LOWER BLOOD Expr:02-02-25 PRESSURE 9) INSULIN,ASPART(EQV-NOVLG)100UN/M L FLXPEN ACTIVE Issu:02-17-24 Qty: 5 for 90 days Sig: INJECT 6 Refills: 1 Last:02-21-24 UNITS UNDER THE SKIN BEFORE SUPPER FOR Expr:02-17-25 DIABETES ADMINISTER 10 MINUTES BEFORE FOOD DIRECTED. REFRIGERATE UN-OPENED PENS. DISCARD CARTRIDGE 28 DAYS AFTER OPENING. 10) INSULIN,GLARG(TOUJEO MAX) 300 UNT/ML 3ML ACTIVE Issu:11-18-23 Qty: 8 for 76 days Sig: INJECT 90 Refills: 3 Last:03-30-24 UNITS UNDER THE SKIN ONCE A DAY FOR Expr:11-18-24 DIABETES ADMINISTER AT SAME TIME EACH DAY DIRECTED. DISCARD ANY OPEN CARTRIDGE AFTER 42 DAYS. *HIGH DOSE INSULIN* 11) MELOXICAM 7.5MG TAB Qty: 90 for 90 days ACTIVE Issu:02-02-24 Sig: TAKE ONE TABLET BY MOUTH ONCE A Refills: 1 Last:02-04-24 DAY NEEDED FOR OSTEOARTHRITIS Expr:02-02-25 12) METFORMIN HCL 500MG 24HR SA TAB Qty: ACTIVE Issu:02-02-24 360 for 90 days Sig: TAKE TWO TABLETS Refills: 1 Last:02-04-24 BY MOUTH TWICE A DAY FOR BLOOD SUGAR Expr:02-02-25 CONTROL. TAKE WITH FOOD. AVOID ALCOHOL. DISCONTINUE BEFORE GETTING XRAY DYE. 13) METHOCARBAMOL 500MG TAB Qty: 120 for 60 ACTIVE Issu:09-09-23 days Sig: TAKE 1 TABLET BY MOUTH Refills: 2 Last:09-09-23 TWICE DAILY NEEDED FOR MUSCLE SPASM Expr:09-09-24 14) MULTIVITAMIN CAP/TAB Qty: 100 for 90 ACTIVE Issu:11-18-23 days Sig: TAKE 1 TABLET BY MOUTH ONCE Refills: 1 Last:11-19-23 A DAY FOR NUTRITION/DIETARY Expr:11-18-24 SUPPLEMENTATION 15) OMEPRAZOLE 20MG EC CAP Qty: 90 for 90 ACTIVE (S) Issu:01-30-24 days Sig: TAKE ONE CAPSULE BY MOUTH Refills: 1 Last:07-19-24 EVERY MORNING TO LOWER STOMACH ACID. Expr:01-30-25 TAKE 30 MINUTES PRIOR TO FOOD. 16) PREGABALIN 200MG ORAL CAP Qty: 60 for ACTIVE Issu:02-02-24 30 days Sig: TAKE ONE CAPSULE BY Refills: 4 Last:03-28-24 MOUTH TWICE A DAY Expr:08-04-24 17) SEMAGLUTIDE 1MG/0.75ML INJ PEN 3ML Qty: ACTIVE Issu:05-01-24 3 for 84 days Sig: INJECT 1MG UNDER Refills: 1 Last:05-01-24 THE SKIN EVERY WEEK FOR DIABETES Expr:05-02-25 Start Date Active Non-VA Medications Refills Expiration ========= 1) Non-VA NAPROXEN NA 220MG TAB SiMG ACTIVE BY MOUTH NEEDED 18 Total Medications Physical Exam: Vital Signs: Temperature: 98.4 F [36.9 C] (06/05/2024 08:06) Blood Pressure: 131/83 (06/05/2024 08:06) Pulse: 77 (06/05/2024 08:06) Respirations: 18 (06/05/2024 08:06) Patient Weight History - Last Four 1. 235.7 lbs. / 106.9 kg. on JUN 05, 2024@08:06:54 2. 233.1 lbs. / 105.7 kg. on MAY 17, 2024@08:37:39 3. 231.0 lbs. / 104.8 kg. on APRIL 07, 2024@10:01:33 4. 227.2 lbs. / 103.1 kg. on FEB 17, 2024@12:10:46 CON: Well developed, well nourished HEENT: EOMI, sclera anicteric NECK: Supple, no cervical LAD THYROID: normal size no thyromegaly, no nodules palpated CV: RRR, no murmur, no LE edema RESP: bilaterally diminished breath sounds GI: s, nt,nd HOANG: NROM all 4 ext; does use a cane to ambulate NEURO: strength B WNL, nonfocal PSYCH: pleasant, appropriate LABS: Comprehensive Metabolic Panel Results: SODIUM 138 mEq/L 05/17/2024 10:20 POTASSIUM 4.5 [...] 10:20 EGFR (CKD-EPI 2020) 75.4 05/17/2024 10:20 STL EGFR (within one year). CREATININE 1.05 mg/dL (05/17/24 10:20) CREATININE 1.05 mg/dL 05/17/2024 10:20 EGFR (CKD-EPI 2020) 75.4 05/17/2024 10:20 TSH: TSH 2.984 uIU/mL 03/06/2024 09:52 PROST. SPECIFIC AG.(PB-STL) 0.919 ng/mL 03/06/2024 09:52 HGA1C 7.0 H % 03/06/2024 09:52 HGA1C 8.8 H % 11/11/2023 10:38 HGA1C 8.1 H % 06/29/2023 10:32 HGA1C 8.1 H % 03/22/2023 12:00 HGA1C 6.4 H % 03/20/2022 11:40 No MICRAL/CREAT RATIO (STL) data found Lipid Panel: TRIGLYCERIDE 145 mg/dL 04/07/2024 11:40 CHOLESTEROL 180 mg/dL 04/07/2024 11:40 HDL(New) 34 L mg/dL 04/07/2024 11:40 CALCULATED LDL 117 mg/dL 04/07/2024 11:40 Assessment and plan: CHET WALKER is a M w/ Hx of HTN, HLD, OA of knee, fatty liver, asthma, DM w/ neuropathy, Obesity, GERD, PUD, presenting for Endo consult with regards to Hx of pituitary neoplasm. HX OF PITUITARY MASS -pt reports being Dx'ed with a pitutiary mass 30+ years ago; was treated by PCP -was on Bromocriptine for several years (presumably for prolactinoma, as pt does not clinically look like he had Acomegaly on physical exam), with pt reporting past adenoma the size of a grape; after tumor shrinkage, Rx was stopped (also decades ago) -11/16/23 Optometry assessment was Negative for any visual field defects, but they recommended Endo referral for further assessment -today, denies any H/A's, vision changes, focal deficits, etc. -past 10/06/06 Prolactin level of 8.26 -03/06/24 TSH of 2.984 (wnl) PLAN: -FSH; LH; Prolactin; TSH and free T4 -pt reports being due for a CT Head this 06/07/24; will hold off on any other imaging at this point until all lab results come in -RTC in 3 months (note that if all labs come back Negative and head CT also is Negative, can consider signing off/not having pt present for follow-up if there is very low suspicion for any pituitary mass/abnormalities) Staffed w/ Dr. Bucio. /shen/ Melanie Basurto MD Endocrinology Fellow Signed: 06/05/2024 09:01 /shen/ ADILSON SELLERS Chief, Endocrinology Cosigned: 06/05/2024 11:35 06/28/2024 ADDENDUM STATUS: COMPLETED Prolactin is mildly elevated. Plan to order pituitary MRI and testosterone level to decide if the patient needs treatment with cabergoline. I called the patient today (06/28/24) to inform about the prolactin result and plan to get the MRI and blood test. The patient does not want to get the image or blood test at this time. He says he does not have any symptoms and is currently undergoing investigation for heart valve disease with symtoms of shortness of breath and would like to address this first. He said we can discuss further during his upcoming follow up at the endocrine clinic. He is scheduled/advised to return in 3 months. /shen/ OLIVERIO ADAMS ENDOCRINOLOGY FELLOW Signed: 06/28/2024 11:40 /shen/ Dennis Mireles MD Staff Physician Endocrinology Cosigned: 06/28/2024 15:09 [facility]
--- OUTSIDE RECORDS SUMMARY | 2024-11-17 03:45 | XMS_ITS | Encounter Summary ---
Author Name [facility] [place] [facility] Address [address] [place] [address] Care Team Providers Care Mounter Smoking Pipe Name Role Phone MANUEL BAIRD Primary Care [...] Policy Patton's Name Patient's Relationship to Policy [place] MEDICARE (WNR) MEDICARE (M) PART A Apr 08, 2017 PART A [id number] [phone] ASHLEY FINK PATIENT Selected Encounter This section includes the information on record at [place] for the Encounter. Date/Time Encounter Type Encounter Description Reason Provider Source May 02, 2024 11:00 AM Outpatient Encounter ADMIN PAT ACTIVTIES (NICOLETTESHANIQUACT) MANUEL BAIRD Nav Encounter Template Text not used by [place] Plan of Treatment: Future Appointments (+ 6 [...] 20 appointments. The data comes from all [facility]. Appointment Date/Time Appointment Type Appointme nt Facility Name May 04, 2024 10:30 AM AMBULATORY - REHAB MEDICIN E [facility] May 12, 2024 10:30 AM AMBULATORY - SURGERY . [facility] May 17, 2024 09:00 AM AMBULATORY - MEDICINE [facility] May 18, 2024 10:30 AM AMBULATORY - REHAB MEDICIN E [facility] May 31, 2024 02:00 PM AMBULATORY - SURGERY . [facility] Jun 05, 2024 08:40 AM AMBULATORY - NONE [facility] Jun 07, 2024 12:30 PM AMBULATORY - MEDICINE [facility] Jun 07, 2024 01:30 PM AMBULATORY - NONE [facility] Jun 08, 2024 10:00 AM AMBULATORY - MEDICINE [facility] Jun 09, 2024 01:00 PM AMBULATORY - SURGERY [facility] Jun 19, 2024 07:00 AM AMBULATORY - MEDICINE [facility] Jun 19, 2024 08:00 AM AMBULATORY - NONE [facility] Jun 29, 2024 10:15 AM AMBULATORY - MEDICINE [facility] Jun 29, 2024 01:00 PM AMBULATORY - SURGERY . [facility] Jul 03, 2024 10:30 AM AMBULATORY - MEDICINE [facility] Jul 14, 2024 12:54 PM AMBULATORY - SURGERY [facility] Jul 20, 2024 10:00 AM AMBULATORY - MEDICINE [facility] Aug 02, 2024 09:45 AM AMBULATORY - MEDICINE [facility] Aug 24, 2024 10:00 AM AMBULATORY - MEDICINE [facility] Aug 24, 2024 10:30 AM AMBULATORY MEDICINE [facility] Active, Pending, and Scheduled Orders This section includes a listing of several types of active, pending, and scheduled orders, including clinic medications orders, diagnostic test orders, procedure orders and consult orders; where the start date of the order is 45 days before the date of the Encounter or 45 days after the date of theEncounter. The data comes from all [place] treatment facilities. Test Date/Time Test Type Test Details Facility Name March 20, 2024 12:36 PM Consult Order [facility] DENTAL SPEC Cons Dorr Operator's Choice [facility] April 07, 2024 12:00 AM Laboratory - Chemi stry Order OCCULT BLOOD FIT X1 SCREEN STOOL FECES [facility] Lab Results: +/- 30 days of the encounter This section includes the Chemistry and Hematology Lab Results on record with [place] for the patient. Radiology Reports and Pathology Reports are provided separately, in subsequent sections. Lab Results This section contains the Chemistry/Hematology Results that were resulted 30 days before or 30 daysafter the date of the Encounter. Date/Time Source Result Type Result - Unit Interpretation Reference Range Comment May 17, 2024 10:20 AM [facility] JAK2 MUTATION (STL) Specimen Type: PLASMA Comment: A JAK2 [id number] mutation is not detected. No mutation is detected in exon 12 of JAK2. Ordering Provider: Emeli CHAU Report Released Date/Time: May 17, 2024 09:56 AM Reporting Lab: [facility] [address] [place] [phone] Performing Lab: [facility] [address] [facility] JAK2 MUTATION (STL) NOT DETECTED NOT DETECTED May 17, 2024 10:20 AM [facility] LDH Specimen Type: PLASMA Comment: No hemolysis noted. Ordering Provider: Emeli CHAU Report Released Date/Time: May 17, 2024 09:56 AM Reporting Lab: [address] [address] Performing Lab: [address] [address] LDH 272 U/L H 125-243 May 17, 2024 10:20 AM [facility] HAPTOGLOBIN (STL) Specimen Type: PLASMA Comment: No hemolysis noted. Ordering Provider: Emeli CHAU Report Released Date/Time: May 17, 2024 09:56 AM Reporting Lab: [address] [address] Performing Lab: [address] [address] HAPTOGLOBIN (STL) 94 mg/dL 44-215 May 17, 2024 10:20 AM [facility] GGT GAMMA-GT Specimen Type: PLASMA Comment: No hemolysis noted. Ordering Provider: Emeli CHAU Report Released Date/Time: May 17, 2024 09:56 AM Reporting Lab: [address] [address] Performing Lab: [address] [address] GGT GAMMA-GT 81 [IU]/L H 12-64 May 17, 2024 10:20 AM [facility] COMPREHENSIVE METABOLIC PANEL Specimen Type: PLASMA Comment: No hemolysis noted. Ordering Provider: Emeli CHAU Report Released Date/Time: May 17, 2024 09:56 AM Reporting Lab: [address] [address] Performing Lab: [address] [address] CREATININE 1.05 mg/dL 0.7-1.3 UREA NITROGEN 16.4 [...] 5-34 ALT/SGPT 36 U/L 8-40 EGFR (CKD-EPI 2021) 75.4 >60 May 17, 2024 10:20 AM [facility] CBC Specimen Type: BLOOD No comment entered. Ordering Provider: Emeli CHAU Report Released Date/Time: May 17, 2024 09:56 AM Reporting Lab: [facility] [address] [facility] [address] Performing Lab: [facility] [address] [place] [phone] WBC 5.0 10*3/uL 3.6-11.2 RBC 5.01 10*6/uL [...] 10*3/uL 0.00-0.60 BASOPHILS, ABSOLUTE 0.07 10*3/uL 0.00-0.20 April 07, 2024 11:40 AM [facility] HIV COMBO FOURTH GENERATION (STL) Specimen Type: SERUM No comment entered. Ordering Provider: JAYNE OQUENDO Report Released Date/Time: April 07, 2024 10:44 AM Reporting Lab: [facility] [address] [facility] [address] Performing Lab: [facility] [address] [place] [phone] HIV COMBO FOURTH GENERATION (STL) Nonreactive Nonreactive April 07, 2024 11:40 AM [facility] PT/INR NEW (STL-MA) Specimen Type: PLASMA No comment entered. Ordering Provider: JAYNE OQUENDO Report Released Date/Time: April 07, 2024 10:44 AM Reporting Lab: [facility] [address] [place] [phone] Performing Lab: [address] [address] PROTIME 13.0 s H 9.4-12.5 INR VALUE 1.2 {INR} April 07, 2024 11:40 AM [facility] HEP C Ab HCV Ab [facility] Specimen Type: SERUM No comment entered. Ordering Provider: JAYNE OQUENDO Report Released Date/Time: April 07, 2024 10:44 AM Reporting Lab: [address] [address] Performing Lab: [address] [address] HEP C Ab HCV Ab [facility] Nonreactive Nonreactive April 07, 2024 11:40 AM [facility] LIPID PANEL [facility] Specimen Type: PLASMA No comment entered. Ordering Provider: JAYNE OQUENDO Report Released Date/Time: April 07, 2024 11:14 AM Reporting Lab: [facility] [address] [place] [phone] Performing Lab: [address] [address] CHOLESTEROL 180 mg/dL 0-200 TRIGLYCERIDE 145 mg/dL 0-150 CALCULATED LDL 117 mg/dL HDL(New) 34 mg/dL L >40 April 07, 2024 11:40 AM [facility] CBC Specimen Type: BLOOD Comment: No clots Ordering Provider: JAYNE OQUENDO Report Released Date/Time: April 07, 2024 10:44 AM Reporting Lab: [facility] [address] [place] [phone] Performing Lab: [address] [address] WBC 4.4 10*3/uL 3.6-11.2 RBC 5.01 10*6/uL 4.10-5.70 HGB 13.8 g/dL 13.1-16.8 HCT 42.2 38.2-48.4 MCV 84.2 fL 80.0-100.0 MCH 27.5 pg 27.0-34.0 MCHC 32.7 g/dL L 33.0-36.0 PLT 151 10*3/uL 150-400 MPV 10.1 fL 7.5-11.2 RDW 13.5 11.8-15.1 PAPPENHEIMER BODIES 0 LYMPHOCYTES, AUTO % 23 MONOCYTES, AUTO % 10 NEUTROPHILS, AUTO % 60 EOSINOPHILS, AUTO % 5 BASOPHILS, AUTO % 1 LYMPHOCYTES, ABSOLUTE 1.02 10*3/uL 0.77-4.50 MONOCYTES, ABSOLUTE 0.43 10*3/uL 0.19-0.80 NEUTROPHILS, ABSOLUTE 2.63 10*3/uL 2.10-8.00 EOSINOPHILS, ABSOLUTE 0.20 10*3/uL 0.00-0.60 BASOPHILS, ABSOLUTE 0.05 10*3/uL 0.00-0.20 TEARDROPS 1+ IMMATURE PLT FRACTION 3.4 1.0-7.0 PLT EST-CV DECREASED ADEQUATE SCRNPERF YES April 07, 2024 10:01 AM [facility] GLUCOSE,BLOOD-poct (STL) Specimen Type: BLOOD Comment: Test Performed by: [id number] Meter #: [id number] Ordering Provider: MANUEL BAIRD Report Released Date/Time: April 07, 2024 02:51 PM Reporting Lab: [address] [address] Performing Lab: [place] [address] [facility] [address] GLUCOSE,BLOOD-p oct (STL) 206 mg/dL H 72-99 Social History: Smoking Status (Most current) and Tobacco Use (All prior to encounter date) This section includes the most current, and the historical, smoking and tobacco- related health factors from the [place] facility where the Encounter took place. Current Smoking Status This section includes the most current smoking, or tobacco-related health factor, from the [place] facility where the Encounter took place. Date/Time Current Smoking Status Comment Facil buster Aug 11, 2016 10:34 AM QUIT TOBACCO >7 YEARS AGO [facility] Tobacco Use History This section includes a history of the smoking, or tobacco-related health factors, that were collected on or before the date of the Encounter. The data comes from the [place] facility where the Encounter took place. Date/Time Smoking Status/Tobacco Use Comment F acility Sep 30, 2015 10:12 AM QUIT TOBACCO >7 YEARS AGO [facility] Oct 29, 2014 10:23 AM QUIT TOBACCO >7 YEARS AGO [facility] Dec 27, 2013 01:27 PM QUIT TOBACCO >7 YEARS AGO [facility] Feb 24, 2013 02:01 PM LIFETIME NON-USER OF TOBACCO [facility] Feb 11, 2009 10:09 AM QUIT TOBACCO >7 YEARS AGO [facility] Oct 06, 2006 09:30 AM CURRENT NON-TOBACC O USER-HX OF USE [facility] Oct 06, 2006 09:30 AM TOBACCO TERMINATION STAGE [facility] Advance Directives: All historical and current Section Date Range: From patient's date of to the date document was created. This section includes ALL of a patient's completed or amended [place] Advance and Rescinded Directives. The entries below indicate that a directive exists for the patient, but an actual copy is not included with this document. The data comes from all [place] facilities. Date Advance Directives Provider Source Jan 19, 2017 ADVANCE DIRECTIVE DISCUSSION ERICK BARDALES [facility] Encounter Notes: All associated encounter notes This section contains the clinical notes associated to the Encounter. Date/Time Encounter Note(s) Provider Source May 02, 2024 11:00 AM PHYSICIAN LETTERS: LOCAL TITLE: NO SHOW LETTER [facility] STANDARD TITLE: PHYSICIAN LETTERS DATE OF NOTE: MAY 02, 2024@11:00 ENTRY DATE: MAY 02, 2024@11:00:12 AUTHOR: SARTHAK BO COSIGNER: URGENCY: STATUS: COMPLETED [facility] [address] [place] [address] MAY 02, 2024 ABIEL FINK [address] [place], [place] [address] Dear Abiel Fink, Thank you for choosing the [facility] as your primary choice for health care. As a partner in your health care, we are attempting to contact you because our records indicate that you did not make it to your scheduled appointment, and we would like to re-schedule. Please call us at [phone], extension [phone] to speak to us regarding making an appointment in the [facility]. Your good health is important to [...] the clinic to inquire about scheduling. Sincerely, SARTHAK BO [employer] ABIEL FINK,SARTHAK [facility]
--- OUTSIDE RECORDS SUMMARY | 2024-11-17 03:45 | XMS_ITS | Encounter Summary ---
Author Name [facility] [place] [facility] [place] Address [address] [place] [address] Care Team Providers Care Overcoil Stepper Name Role Phone MANUEL BAIRD Primary Care [...] PART A Apr 08, 2017 PART A [id number] ASHLEY WALKER PATIENT Selected Encounter This section includes the information on record at [place] for the Encounter. Date/Time Encounter Type Encounter Description Reason Provider Source May 12, 2024 10:30 AM OFFICE O/P EST MOD 30 MIN OPTOMETRY ICD-10-CM E11.9 Type 2 diabetes mellitus without complications DUSTIN ESPINOZA Encounter Template Text not used by [place] Assessments - Encounter Diagnoses This section includes the primary and secondary diagnoses documented for the Encounter. Date/Time Primary/Secondary Diagnosis Diagnosis Name Provider Source May 12, 2024 10:37 AM PRIMARY Type 2 diabetes mellitus without complications CAROL ESPINOZA [facility] May 12, 2024 10:37 AM SECONDARY Combined forms of age-related cataract, bilateral CAROL ESPINOZA [facility] May 12, 2024 10:37 AM SECONDARY Dry eye syndrome of bilateral lacrimal glands CAROL ESPINOZA [facility] May 12, 2024 10:37 AM SECONDARY Presbyopia CAROL ESPINOZA [facility] Plan of Treatment: Future Appointments (+ 6 months) and Future Tests (+/- 45 days) The Plan of Treatment section includes future care activities for the [facility] [place] [facility] This section includes future appointments and future orders which are active, pending or scheduled. Future Appointments This section includes appointments that were scheduled to occur 6 months from the date of the Encounter, up to a maximum of 20 appointments. The data comes from all [place] treatment facilities. Appointment Date/Time Appointment Type Appointme nt Facility Name May 17, 2024 09:00 AM AMBULATORY - MEDICINE [facility] May 18, 2024 10:30 AM AMBULATORY - REHAB MEDICIN E [facility] May 31, 2024 02:00 PM AMBULATORY - SURGERY [facility] Jun 05, 2024 08:40 AM AMBULATORY - NONE [facility] Jun 07, 2024 12:30 PM AMBULATORY - MEDICINE [facility] Jun 07, 2024 01:30 PM AMBULATORY - NONE [facility] Jun 08, 2024 10:00 AM AMBULATORY - MEDICINE [facility] Jun 09, 2024 01:00 PM AMBULATORY - SURGERY [facility] Jun 19, 2024 07:00 AM AMBULATORY - MEDICINE [facility] Jun 19, 2024 08:00 AM AMBULATORY - NONE [facility] Jun 29, 2024 10:15 AM AMBULATORY - MEDICINE [facility] Jun 29, 2024 01:00 PM AMBULATORY - SURGERY [facility] Jul 03, 2024 10:30 AM AMBULATORY - MEDICINE [facility] Jul 14, 2024 12:54 PM AMBULATORY - SURGERY . Julián [facility] Jul 20, 2024 10:00 AM AMBULATORY - MEDICINE [facility] Aug 02, 2024 09:45 AM AMBULATORY - MEDICINE [facility] Aug 24, 2024 10:00 AM AMBULATORY MEDICINE [facility] Aug 24, 2024 10:30 AM AMBULATORY MEDICINE [facility] Aug 30, 2024 09:30 AM AMBULATORY - MEDICINE [facility] Aug 31, 2024 01:00 PM AMBULATORY - SURGERY Julián [facility] Active, Pending, and Scheduled Orders This section includes a listing of several types of active, pending, and scheduled orders, including clinic medications orders, diagnostic test orders, procedure orders and consult orders; where the start date of the order is 45 days before the date of the Encounter or 45 days after the date of theEncounter. The data comes from all [place] treatment facilities. Test Date/Time Test Type Test Details Facility Name April 07, 2024 12:00 AM Laboratory - Chemi lidya Order OCCULT BLOOD FIT X1 SCREEN STOOL FECES [facility] Lab Results: +/- 30 days of the encounter This section includes the Chemistry and Hematology Lab Results on record with [place] for the patient. Radiology Reports and Pathology Reports are provided separately, in subsequent sections. Lab Results This section contains the Chemistry/Hematology Results that were resulted 30 days before or 30 daysafter the date of the Encounter. Date/Time Source Result Type Result - Unit Interpretation Reference Range Comment Jun 09, 2024 11:[address] [facility] MICRAL/CREAT PROFILE (STL) Specimen Type: URINE No comment entered. Ordering Provider: WELLINGTON SERNA Report Released Date/Time: Jun 07, 2024 01:44 PM Reporting Lab: [facility] [address] [facility] [address] Performing Lab: [place] [address] [facility] [address] URINE ALBUMIN (PB-STL) 167.5 mg/L uACR (STL) 103 mg/g H 0-29 CREATININE URINE/OTHERS 163.4 mg/dL 63-166 Jun 07, 2024 02:[address] [facility] MAGNESIUM Specimen Type: PLASMA No comment entered. Ordering Provider: WELLINGTON SERNA Report Released Date/Time: Jun 07, 2024 01:44 PM Reporting Lab: [address] [address] Performing Lab: [address] [address] MAGNESIUM 1.7 mg/dL 1.6-2.6 Jun 07, 2024 02:[address] [facility] BRAIN NATRIURETIC PEPTIDE Specimen Type: PLASMA No comment entered. Ordering Provider: WELLINGTON SERNA Report Released Date/Time: Jun 07, 2024 01:32 PM Reporting Lab: [address] [address] Performing Lab: [address] [address] BRAIN NATRIURETIC PEPTIDE 198.9 pg/mL H 0-100 Jun 07, 2024 02:[address] [facility] hsCRP Specimen Type: SERUM No comment entered. Ordering Provider: WELLINGTON SERNA Report Released Date/Time: Jun 07, 2024 01:42 PM Reporting Lab: [address] [address] Performing Lab: [address] [address] hsCRP 4.65 mg/L H 0-3.1 Jun 05, 2024 09:[address] [facility] FSH ([facility]) Specimen Type: SERUM Comment: Test Performed by [facility], [facility], [address] [place] [address] Tommie Garcia M.D., Ph.D., Director of Laboratories , [facility] [id number] Ordering Provider: EMILIA CALHOUN Report Released Date/Time: Jun 05, 2024 08:45 AM Reporting Lab: [address] [address] Performing Lab: [facility] [address] [facility] FSH (STL-MA) 5.5 m[IU]/mL 1.4-12.8 Jun 05, 2024 09:[address] [facility] LUTEINIZING HORMONE Specimen Type: SERUM Comment: Test Per[facility] by [facility], [facility], [address] [place] [address] Tommie Garcia M.D., Ph.D., Director of Laboratories , [facility] [id number] Ordering Provider: EMILIA CALHOUN Report Released Date/Time: Jun 05, 2024 08:45 AM Reporting Lab: [address] [address] Performing Lab: [address] LUTEINIZING HORMONE 2.7 m[IU]/mL 1.6-15.2 Jun 05, 2024 09:[address] [facility] PROLACTIN (L-Eff 08/15) Specimen Type: PLASMA No comment entered. Ordering Provider: EMILIA CALHOUN Report Released Date/Time: Jun 05, 2024 08:45 AM Reporting Lab: [address] [address] Performing Lab: [address] [address] PROLACTIN (STL-Eff 08/15) 41.98 ng/mL H 3.5-19.4 Jun 05, 2024 09:[address] [facility] TSH (MA-PB) Specimen Type: SERUM No comment entered. Ordering Provider: EMILIA CALHOUN Report Released Date/Time: Jun 05, 2024 08:45 AM Reporting Lab: [address] [address] Performing Lab: [address] [address] TSH 3.510 u[IU]/mL 0.47-5 Jun 05, 2024 09:[address] [facility] FREE T4 (MA-PB) Specimen Type: SERUM No comment entered. Ordering Provider: EMILIA CALHOUN Report Released Date/Time: Jun 05, 2024 08:45 AM Reporting Lab: [place] [address] [facility] [address] Performing Lab: [facility] [address] [place] [phone] FREE T4 (MA-PB) 0.78 ng/mL 0.7-1.48 May 17, 2024 10:[address] [facility] JAK2 MUTATION (STL) Specimen Type: PLASMA Comment: A JAK2 [id number] mutation is not detected. No mutation is detected in exon 12 of JAK2. Ordering Provider: JONATHON CHAU Report Released Date/Time: May 17, 2024 09:56 AM Reporting Lab: [address] [address] Performing Lab: [address] JAK2 MUTATION (STL) NOT DETECTED NOT DETECTED May 17, 2024 10:[address] [facility] LDH Specimen Type: PLASMA Comment: No hemolysis noted. Ordering Provider: JONATHON CHAU Report Released Date/Time: May 17, 2024 09:56 AM Reporting Lab: [address] [address] Performing Lab: [address] [address] LDH 272 U/L H 125-243 May 17, 2024 10:[address] [facility] HAPTOGLOBIN (STL) Specimen Type: PLASMA Comment: No hemolysis noted. Ordering Provider: JONATHON CHAU Report Released Date/Time: May 17, 2024 09:56 AM Reporting Lab: [address] [address] Performing Lab: [place] [address] [facility] [address] HAPTOGLOBIN (STL) 94 mg/dL 44-215 May 17, 2024 10:[address] [facility] GGT GAMMA-GT Specimen Type: PLASMA Comment: No hemolysis noted. Ordering Provider: JONATHON CHAU Report Released Date/Time: May 17, 2024 09:56 AM Reporting Lab: [address] [address] Performing Lab: [address] [address] GGT GAMMA-GT 81 [IU]/L H 12-64 May 17, 2024 10:[address] [facility] COMPREHENSIVE METABOLIC PANEL Specimen Type: PLASMA Comment: No hemolysis noted. Ordering Provider: JONATHON CHAU Report Released Date/Time: May 17, 2024 09:56 AM Reporting Lab: [address] [address] Performing Lab: [address] [address] CREATININE 1.05 mg/dL 0.7-1.3 UREA NITROGEN 16.4 [...] 75.4 >60 May 17, 2024 10:[address] [facility] CBC Specimen Type: BLOOD No comment entered. Ordering Provider: JONATHON CHAU Report Released Date/Time: May 17, 2024 09:56 AM Reporting Lab: [facility] [address] [facility] [address] Performing Lab: [facility] [address] [facility] [address] WBC 5.0 10*3/uL 3.6-11.2 RBC 5.01 10*6/uL [...] AM QUIT TOBACCO >[address] [facility] Tobacco Use History This section includes a history of the smoking, or tobacco-related health factors, that were collected on or before the date of the Encounter. The data comes from the [place] facility where the Encounter took place. Date/Time Smoking Status/Tobacco Use Comment Juan borden Sep 30, 2015 10:12 AM QUIT TOBACCO >7 YEARS AGO [facility] Oct 29, 2014 10:23 AM QUIT TOBACCO >[address] [facility] Dec 27, 2013 01:27 PM QUIT TOBACCO >[address] [facility] Feb 24, 2013 02:01 PM LIFETIME NON-USER OF TOBACCO [facility] Feb 11, 2009 10:09 AM QUIT TOBACCO >[address] [facility] Oct 06, 2006 09:30 AM CURRENT NON-TOBACC O USER-HX OF USE [facility] Oct 06, 2006 09:30 [address] [facility] Advance Directives: All historical and current Section Date Range: From patient's date of to the date document was created. This section includes ALL of a patient's completed or amended [place] Advance and Rescinded Directives. The entries below indicate that a directive exists for the patient, but an actual copy is not included with this document. The data comes from all [place] facilities. Date Advance Directives Provider Source Jan 19, 2017 ADVANCE DIRECTIVE DISCUSSION ERICK BARDALES [facility] Radiology Reports: +/- 30 days [...] CHEST W/CONTRAS T & 3D: CHET WALKER [id number] -[id number] Exm Date: JUN 07, 2024@14:29 Req Phys: JOHANA REDDY Loc: YASH-ONCOLOGY KANDI (Req'g Img Loc: YASH-CT IMAGING YASH Service: [facility], [facility] [address] [place] [address] (Case [id number] COMPLETE) CT THORAX, DIAGNOSTIC, W/CONTRAS(CT Detailed) CPT:88535 Contrast Media : Non-ionic Iodinated Reason for Study: Shortness of breath (Case [id number] COMPLETE) UNLISTED CT PROCEDURE (CT Detailed) CPT:02289 CPT Modifiers : 52 REDUCED SERVICES Clinical History: Responsible Attending: Dr. Orantes Attending Contact Number: [phone] Resident Contact Number: CT chest, high resolution Allergies listed in CPRS chart: TRAMADOL Creatinine: CREATININE 0.87 mg/dL 03/06/2024 09:52 /eGFR: STL EGFR (within one year). CREATININE 0.87 mg/dL (03/06/24 09:52) Wt: 233.1 lb [105.73 kg] (05/17/2024 08:37) History of: Renal failure, chronic or acute renal disease: NO Report Status: Verified Date Reported: JUN 07, 2024 Date Verified: JUN 07, 2024 Student Life Dean E-Sig:/ES/LISHA BRYANT Report: , [id number], [id number] INDICATION: Shortness of breath COMPARISON: None TECHNIQUE: [...] suggested. Primary Interpreting Staff: LISHA BRYANT, RADIOLOGIST (Student Life Dean) /LISHA AVITIA [facility] Jun 07, 2024 02:[address] ABD PEL W/CONT & 3D: CHET WALKER [id number] -1950 M Exm Date: JUN 07, 2024@14:28 Req Phys: KOBY LUISJOHANA Ruma Loc: YASH-ONCOLOGY KANDI (Req'g Img Loc: YASH-CT IMAGING YASH Service: Unknown [facility], [facility] [address] [place] [address] (Case [id number] COMPLETE) CT ABDOMEN AND PELVIS W/CONTRAST (CT Detailed) CPT:15114 Contrast Media : Non-ionic Iodinated Reason for Study: enlarged spleen (Case 3137 COMPLETE) CT 3D RENDERING W INDEPENDENT WOR(CT Detailed) CPT:37096 Clinical History: Responsible Attending: Dr. Orantes Attending Contact Number: [phone] Resident Contact Number: spleenomegally, evaluation for liver, lymphadenopathy Allergies listed in CPRS chart: TRAMADOL Creatinine:CREATININE 0.87 mg/dL 03/06/2024 09:52 /eGFR: STL EGFR (within one year). CREATININE 0.87 mg/dL (03/06/24 09:52) Wt: 233.1 lb [105.73 kg] (05/17/2024 08:37) History of: Renal failure, chronic or acute renal disease: NO Report Status: Verified Date Reported: JUN 07, 2024 Date Verified: JUN 07, 2024 Student Life Dean E-Sig:/ES/LISHA BRYANT Report: , [id number], [id number] INDICATION: Shortness of breath COMPARISON: None TECHNIQUE: [...] suggested. Primary Interpreting Staff: LISHA BRYANT, RADIOLOGIST (Student Life Dean) /LISHA AVITIA [facility] Encounter Notes: All associated encounter notes This section contains the clinical notes associated to the Encounter. Date/Time Encounter Note(s) Provider Source May 15, 2024 08:04 AM PHARMACY NOTE: LOCAL TITLE: V15-CGM QUALIFICATION NOTE STANDARD TITLE: PHARMACY NOTE DATE OF NOTE: MAY 15, 2024@08:04 ENTRY DATE: MAY 15, 2024@08:04:57 AUTHOR: REED COLLADO EXP COSIGNER: URGENCY: STATUS: COMPLETED CGM Continuation CGM Product Selection List: Dockery Lisastyle Pretty 3 /es/ REED COLLADO, PHARM.D., [facility] CLINICAL PHARMACIST Signed: 05/15/2024 08:05 REED COLLADO [facility] May 12, 2024 10:38 AM ADDENDUM: LOCAL TITLE: Addendum STANDARD TITLE: ADDENDUM DATE OF NOTE: MAY 12, 2024@10:38:42 ENTRY DATE: MAY 12, 2024@10:38:43 AUTHOR: ESTELA ESPINOZA EXP COSIGNER: URGENCY: STATUS: COMPLETED Dear Dr. Baird, I had the pleasure of seeing Mr. Walker in the eye clinic for his eye exam. He has a history of a pituitary adenoma. He was previously treated with Bromocriptine >10 years ago. His last formal [place] Visual Field (11/2023) revealed no VF defects that would be consistent with chiasmal compression. I wanted to alert you to this information as Mr. Walker had mentioned he is not following with endocrinology and I reviewed his chart and was unable to find an updated MRI Brain. Please follow up with Mr. Walker as you see necessary and I will defer ordering any imaging to you. Thank you! Regards, /shen/ ESTELA ESPINOZA OD [employer] RIGGER Signed: 05/12/2024 10:59 Receipt Acknowledged By: 05/16/2024 14:52 /es/ CHARITY HALL REGISTERED NURSE 05/16/2024 09:43 /es/ manuel baird M.D. Staff Physician --- Original Document --- 05/12/24 OPTOMETRY NOTE: Last seen: 11/16/23 CC: 1. Vision is so-so - OU - With glasses 2. Type 2 Diabetic - Dx'd: several years ago - On oral meds, insulin, and Ozempic - Has a CGM now - Here for DFE Ocular Meds: None Ocular ROS: (+) s/p bilateral upper eyelid [...] allergies reviewed: CPRS Serology for Diabetes GLUCOSE 128 H mg/dL 03/06/2024 09:52 HGA1C 7.0 H % 03/06/2024 09:52 Cardiovascular BP: 140/90 (04/07/2024 10:06) Pulse: 61 (04/07/2024 10:01) VISUAL ACUITY (DOC): With correction, Distance Visual Acuity OD: 20/30 OS: 20/40 Pupils: PERRL OU (-)APD Confrontation: Grossly FTFC OU Extra-Ocular Muscles: Full OU Externals/Adnexa: Unremarkable OU Manifest Refraction: 05/12/24 OD: +0.50 -1.00 x100 20/25-2 - PAP: 20/20- (difficult) OS: +0.50 -1.25 x065 20/25-2 - PAP: 20/20- (difficult) ADD: +2.50 SLIT LAMP EXAMINATION Lids/Lashes/Lacrimal Mild MGD OU, (+)Papilloma lateral LLL Conjunctiva/Sclera White/quiet OU Cornea (+)Inf SPK OU Ant Chamber Deep and quiet OU Iris Normal, (-)NVI OU Lens 1-2+ NS OU, 1+ PSC sup OU Intraocular Pressure History (Fluress/Goldmann): Date OD OS Time Meds 06/09/22 18 17 0907 none 06/04/23 19 19 0848 none 11/16/23 18 18 1055 none 05/12/24 18 18 1005 none RETINAL EVALUATION: dilation warning, both eyes, 1% Tropicamide and 2.5% Phenylephrine 05/12/24 Optic Nerve: OD: 0.15 CDR Flat, pink, distinct (-)NVD OS: 0.15 CDR Flat, pink, distinct (-)NVD Vessels: 2/3 OU Macula: OD: Flat, clear (-)CSME OS: Flat, clear (-)CSME Periphery: OD: Flat and attached OS: Flat and attached Vitreous: No PVD O.U. Assessment/Plan: 05/12/24 1. Hx of Pituitary Adenoma - Managed at OSH; per patient, treated with bromocriptine >10 years ago - [facility] 24-2 (11/2023): no VF defects that would be consistent with chiasmal compression - No updated MRI Brain on file, pt. not established with Endocrinology at [facility] - Will alert PCP - Monitor in 6 months with [facility] 24-2 2. Diabetes without retinopathy, OU - Hx of Mild NPDR OS - No DME/CSME on clincial examination - Educate and monitor, discussed diabetic eye disease, patient understands importance of good blood sugar control. - Monitor yearly with DFE 3. 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 Combined Cataracts, OU - Discussed impact on vision - Mildly visually significant - Myopic shift noted today on MRx - Defer referral for CE-IOL until s/sx indicate 5. Presbyopia and refractive error, OU - Order glasses Educate and monitor, discussed all exam findings. Patient and/or surrogate verbalized understanding of the instructions/information given. RTC: 6 months [facility] 24-2; sooner PRN /shen/ ESTELA ESPINOZA OD [employer] RIGGER Signed: 05/12/2024 10:38 05/16/2024 ADDENDUM STATUS: COMPLETED Chart reviewed. Please refer to Attending MD note 05/16/2024. /shen/ manuel baird M.D. Staff Physician Signed: 05/16/2024 09:43 05/16/2024 ADDENDUM STATUS: COMPLETED PCP contacted Patient- see 05/16/24 Attending MD note /shen/ CHARITY HALL REGISTERED NURSE Signed: 05/16/2024 14:52 ESTELA ESPINOZA [facility] May 12, 2024 09:54 AM OPTOMETRY NOTE: LOCAL TITLE: OPTOMETRY NOTE STANDARD TITLE: OPTOMETRY NOTE DATE OF NOTE: MAY 12, 2024@09:54 ENTRY DATE: MAY 12, 2024@09:55:01 AUTHOR: ESTELA ESPINOZA EXP COSIGNER: URGENCY: STATUS: COMPLETED OPTOMETRY NOTE Has ADDENDA Last seen: 11/16/23 CC: 1. Vision is so-so - OU - With glasses 2. 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 (+) Diabtes without retinopathy OU *Hx of Mild NPDR OS (+) Hx of Pituitary Adenoma *Managed at OSH, treated with bromocriptine >10 years ago (+) Combined Cataracts OU Family OcHX: (-) blindness (-) glaucoma (-) AMD (-) RD Problem list, medications and allergies reviewed: [facility] Serology for Diabetes GLUCOSE 128 H mg/dL 03/06/2024 09:52 HGA1C 7.0 H % 03/06/2024 09:52 Cardiovascular BP: 140/90 (04/07/2024 10:06) Pulse: 61 (04/07/2024 10:01) VISUAL ACUITY (DOC): With correction, Distance Visual Acuity OD: 20/30 OS: 20/40 Pupils: PERRL OU (-)APD Confrontation: Grossly FTFC OU Extra-Ocular Muscles: Full OU Externals/Adnexa: Unremarkable OU Manifest Refraction: 05/12/24 OD: +0.50 -1.00 x100 20/25-2 - PAP: 20/20- (difficult) OS: +0.50 -1.25 x065 20/25-2 - PAP: 20/20- (difficult) ADD: +2.50 SLIT LAMP EXAMINATION Lids/Lashes/Lacrimal Mild MGD OU, (+)Papilloma lateral LLL Conjunctiva/Sclera White/quiet OU Cornea (+)Inf SPK OU Ant Chamber Deep and quiet OU Iris Normal, (-)NVI OU Lens 1-2+ NS OU, 1+ PSC sup OU Intraocular Pressure History (Fluress/Goldmann): Date OD OS Time Meds 06/09/22 18 17 0907 none 06/04/23 19 19 0848 none 11/16/23 18 18 1055 none 05/12/24 18 18 1005 none RETINAL EVALUATION: dilation warning, both eyes, 1% Tropicamide and 2.5% Phenylephrine 05/12/24 Optic Nerve: OD: 0.15 CDR Flat, pink, distinct (-)NVD OS: 0.15 CDR Flat, pink, distinct (-)NVD Vessels: 2/3 OU Macula: OD: Flat, clear (-)CSME OS: Flat, clear (-)CSME Periphery: OD: Flat and attached OS: Flat and attached Vitreous: No PVD O.U. Assessment/Plan: 05/12/24 1. Hx of Pituitary Adenoma - Managed at OSH; per patient, treated with bromocriptine >10 years ago - [facility] 24-2 (11/2023): no VF defects that would be consistent with chiasmal compression - No updated MRI Brain on file, pt. not established with Endocrinology at [facility] - Will alert PCP - Monitor in 6 months with [facility] 24-2 2. Diabetes without retinopathy, OU - Hx of Mild NPDR OS - No DME/CSME on clincial examination - Educate and monitor, discussed diabetic eye disease, patient understands importance of good blood sugar control. - Monitor yearly with DFE 3. 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 Combined Cataracts, OU - Discussed impact on vision - Mildly visually significant - Myopic shift noted today on MRx - Defer referral for CE-IOL until s/sx indicate 5. Presbyopia and refractive error, OU - Order glasses Educate and monitor, discussed all exam findings. Patient and/or surrogate verbalized understanding of the instructions/information given. RTC: 6 months [facility] 24-2; sooner PRN /shen/ ESTELA ESPINOZA OD [employer] RIG[employer] Signed: 05/12/2024 10:38 05/12/2024 ADDENDUM STATUS: COMPLETED Dear Dr. Baird, I had the pleasure of seeing Mr. Walker in the eye clinic for his eye exam. He has a history of a pituitary adenoma. He was previously treated with Bromocriptine >10 years ago. His last formal [place] Visual Field (11/2023) revealed no VF defects that would be consistent with chiasmal compression. I wanted to alert you to this information as Mr. Walker had mentioned he is not following with endocrinology and I reviewed his chart and was unable to find an updated MRI Brain. Please follow up with Mr. Walker as you see necessary and I will defer ordering any imaging to you. Thank you! Regards, /camryn ESPINOZA OD [employer] RIGGER Signed: 05/12/2024 10:59 Receipt Acknowledged By: 05/16/2024 14:52 /shen/ CHARITY HALL REGISTERED NURSE 05/16/2024 09:43 /shen/ manuel baird M.D. Staff Physician 05/16/2024 ADDENDUM STATUS: COMPLETED Chart reviewed. Please refer to Attending MD note 05/16/2024. /camryn baird M.D. Staff Physician Signed: 05/16/2024 09:43 05/16/2024 ADDENDUM STATUS: COMPLETED PCP contacted Patient- see 05/16/24 Attending MD note /shen/ CHARITY HALL REGISTERED NURSE Signed: 05/16/2024 14:52 ESTELA ESPINOZA [facility]
--- OUTSIDE RECORDS SUMMARY | 2024-11-17 03:45 | XMS_ITS | Encounter Summary ---
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 This section includes future appointments and future orders which are active, pending or scheduled. Future Appointments This section includes appointments that were scheduled to occur 6 months from the date of the Encounter, up to a maximum of 20 appointments. The data comes from all [facility]. Appointment Date/Time Appointment Type Appointme nt Facility Name May 17, 2024 09:00 AM AMBULATORY - MEDICINE [facility] May 18, 2024 10:30 AM AMBULATORY - REHAB MEDICIN E [facility] May 31, 2024 02:00 PM AMBULATORY - SURGERY [facility] Jun 05, 2024 08:40 AM AMBULATORY - NONE [facility] Jun 07, 2024 12:30 PM AMBULATORY - MEDICINE [facility] Jun 07, 2024 01:30 PM AMBULATORY - NONE [facility] Jun 08, 2024 10:00 AM AMBULATORY - MEDICINE [facility] Jun 09, 2024 01:00 PM AMBULATORY - SURGERY [facility] Jun 19, 2024 07:00 AM AMBULATORY - MEDICINE [facility] Jun 19, 2024 08:00 AM AMBULATORY - NONE [facility] Jun 29, 2024 10:15 AM AMBULATORY - MEDICINE [facility] Jun 29, 2024 01:00 PM AMBULATORY - SURGERY [facility] Jul 03, 2024 10:30 AM AMBULATORY - MEDICINE [facility] Jul 14, 2024 12:54 PM [facility] Jul 20, 2024 10:00 AM AMBULATORY - MEDICINE [facility] Aug 02, 2024 09:45 AM AMBULATORY - MEDICINE [facility] Aug 24, 2024 10:00 AM AMBULATORY - MEDICINE [facility] Aug 24, 2024 10:30 AM AMBULATORY - MEDICINE [facility] Aug 30, 2024 09:30 AM AMBULATORY - MEDICINE [facility] Aug 31, 2024 01:00 PM AMBULATORY - SURGERY [facility] Julián [facility] Active, Pending, and Scheduled Orders This section includes a listing of several types of active, pending, and scheduled orders, including clinic medications orders, diagnostic test orders, procedure orders and consult orders; where the start date of the order is 45 days before the date of the Encounter or 45 days after the date of theEncounter. The data comes from all [place] treatment facilities. Test Date/Time Test Type Test Details Facility Name April 07, 2024 12:00 AM Laboratory - Chemi stry Order OCCULT BLOOD FIT X1 SCREEN STOOL FECES SP [facility] Lab Results: +/- 30 days [...] Range Comment Jun 09, 2024 11:48 AM [facility] MICRAL/CREAT PROFILE (STL) Specimen Type: URINE No comment entered. Ordering Provider: WELLINGTON SERNA Report Released Date/Time: Jun 07, 2024 01:44 PM Reporting Lab: [facility] [address] [address] Performing Lab: [facility] [address] [address] URINE ALBUMIN (PB-STL) 167.5 mg/L uACR (STL) 103 mg/g H 0-29 CREATININE URINE/OTHERS 163.4 mg/dL 63-166 Jun 07, 2024 02:22 PM [facility] BRAIN NATRIURETIC PEPTIDE Specimen Type: PLASMA No comment entered. Ordering Provider: WELLINGTON SERNA Report Released Date/Time: Jun 07, 2024 01:32 PM Reporting Lab: [facility] [address] [address] Performing Lab: [facility] [address] [address] BRAIN NATRIURETIC PEPTIDE 198.9 pg/mL H 0-100 Jun 07, 2024 02:22 PM [facility] hsCRP Specimen Type: SERUM No comment entered. Ordering Provider: WELLINGTON SERNA Report Released Date/Time: Jun 07, 2024 01:42 PM Reporting Lab: [address] [address] Performing Lab: [address] [address] hsCRP 4.65 mg/L H 0-3.1 Jun 07, 2024 02:22 PM [facility] MAGNESIUM Specimen Type: PLASMA No comment entered. Ordering Provider: WELLINGTON SERNA Report Released Date/Time: Jun 07, 2024 01:44 PM Reporting Lab: [address] [address] Performing Lab: [address] [address] MAGNESIUM 1.7 mg/dL 1.6-2.6 Jun 05, 2024 09:00 AM [facility] FSH (STL-MA) Specimen Type: SERUM Comment: Test Performed by [employer], [employer] [place], [address] [place] [address] Tommie Garcia M.D., Ph.D., Director of Laboratories , [facility] [id number] Ordering Provider: EMILIA CALHOUN Report Released Date/Time: Jun 05, 2024 08:45 AM Reporting Lab: [address] [address] Performing Lab: [address] FSH (STL-MA) 5.5 m[IU]/mL 1.4-12.8 Jun 05, 2024 09:00 AM [facility] LUTEINIZING HORMONE Specimen Type: SERUM Comment: Test Performed by [employer], [employer] [place], [address] [place] [address] Tommie Garcia M.D., Ph.D., Director of Laboratories , [facility] [id number] Ordering Provider: EMILIA CALHOUN Report Released Date/Time: Jun 05, 2024 08:45 AM Reporting Lab: [facility] [address] [address] Performing Lab: [address] LUTEINIZING HORMONE 2.7 m[IU]/mL 1.6-15.2 Jun 05, 2024 09:00 AM [facility] PROLACTIN (L-Eff 08/15) Specimen Type: PLASMA No comment entered. Ordering Provider: EMILIA CALHOUN Report Released Date/Time: Jun 05, 2024 08:45 AM Reporting Lab: [address] [address] Performing Lab: [address] [address] PROLACTIN (STL-Eff 08/15) 41.98 ng/mL H 3.5-19.4 Jun 05, 2024 09:00 AM [facility] TSH (MA-PB) Specimen Type: SERUM No comment entered. Ordering Provider: EMILIA CALHOUN Report Released Date/Time: Jun 05, 2024 08:45 AM Reporting Lab: [address] [address] Performing Lab: [facility] [address] [place] [id number] TSH 3.510 u[IU]/mL 0.47-5 Jun 05, 2024 09:00 AM [facility] FREE T4 (MA-PB) Specimen Type: SERUM No comment entered. Ordering Provider: EMILIA CALHOUN Report Released Date/Time: Jun 05, 2024 08:45 AM Reporting Lab: [address] [address] Performing Lab: [address] [address] FREE T4 (MA-PB) 0.78 ng/mL 0.7-1.48 May 17, 2024 10:20 AM [facility] JAK2 MUTATION (STL) Specimen Type: PLASMA Comment: A JAK2 [id number] mutation is not detected. No mutation is detected in exon 12 of JAK2. Ordering Provider: JONATHON CHAU Report Released Date/Time: May 17, 2024 09:56 AM Reporting Lab: [facility] [address] [address] Performing Lab: [address] JAK2 MUTATION (STL) NOT DETECTED NOT DETECTED May 17, 2024 10:20 AM [facility] LDH Specimen Type: PLASMA Comment: No hemolysis noted. Ordering Provider: JONATHON CHAU Report Released Date/Time: May 17, 2024 09:56 AM Reporting Lab: [facility] [address] [address] Performing Lab: [facility] [address] [address] LDH 272 U/L H 125-243 May 17, 2024 10:20 AM [facility] HAPTOGLOBIN (STL) Specimen Type: PLASMA Comment: No hemolysis noted. Ordering Provider: JONATHON CHAU Report Released Date/Time: May 17, 2024 09:56 AM Reporting Lab: [facility] [address] [address] Performing Lab: [facility] [address] [address] HAPTOGLOBIN (STL) 94 mg/dL 44-215 May 17, 2024 10:20 AM [facility] GGT GAMMA-GT Specimen Type: PLASMA Comment: No hemolysis noted. Ordering Provider: JONATHON CHAU Report Released Date/Time: May 17, 2024 09:56 AM Reporting Lab: [address] [address] Performing Lab: [address] [address] GGT GAMMA-GT 81 [IU]/L H 12-64 May 17, 2024 10:20 AM [facility] COMPREHENSIVE METABOLIC PANEL Specimen Type: PLASMA Comment: No hemolysis noted. Ordering Provider: JONATHON CHAU Report Released Date/Time: May 17, 2024 09:56 AM Reporting Lab: [address] [address] Performing Lab: [address] [address] CREATININE 1.05 mg/dL 0.7-1.3 UREA NITROGEN 16.4 [...] 75.4 >60 May 17, 2024 10:20 AM [facility] CBC Specimen Type: BLOOD No comment entered. Ordering Provider: JONATHON CHAU Report Released Date/Time: May 17, 2024 09:56 AM Reporting Lab: [address] [address] Performing Lab: [address] [address] WBC 5.0 10*3/uL 3.6-11.2 RBC 5.01 10*6/uL [...] and tobacco- related health factors from the [place] facility where the Encounter took place. Current Smoking Status This section includes the most current smoking, or tobacco-related health factor, from the [place] facility where the Encounter took place. Date/Time Current Smoking Status Comment Facil ity March 16, 2024 09:30 AM VA-TOBACCO FORMER USER [facility] Tobacco Use History This section includes a history of the smoking, or tobacco-related health factors, that were collected on or before the date of the Encounter. The data comes from the [place] facility where the Encounter took place. Date/Time Smoking Status/Tobacco Use Comment F acility March 16, 2024 09:30 AM VA-TOBACCO QUIT 15 YRS OR MORE [facility] March 22, 2023 10:00 AM VA-TOBACCO FORMER USER [facility] March 22, 2023 10:00 AM VA-TOBACCO QUIT 15 YRS OR MORE [facility] Jan 29, 2022 03:00 PM VA-TOBACCO FORMER USER [facility] Jan 29, 2022 03:00 PM VA-TOBACCO QUIT 15 YRS OR MORE [facility] Feb 07, 2019 04:17 PM VA-TOBACCO FORMER USER [facility] Feb 07, 2019 04:17 PM VA-TOBACCO QUIT 15 YRS OR MORE [facility] March 09, 2018 12:36 PM QUIT TOBACCO >7 YEARS AGO [facility] Aug 05, 2017 02:36 PM QUIT TOBACCO >7 YEARS AGO [facility] Advance Directives: All historical and current Section Date Range: From patient's date of to the date document was created. This section includes ALL of a patient's completed or amended [place] Advance and Rescinded Directives. The entries below indicate that a directive exists for the patient, but an actual copy is not included with this document. The data comes from all [place] facilities. Date Advance Directives Provider Source Jan 19, 2017 ADVANCE DIRECTIVE DISCUSSION ERICK BARDALES [facility] Radiology Reports: +/- 30 days [...] the Encounter. The data comes from all [place] treatment facilities. Date/Time Radiology Report Provider Source Jun 07, 2024 02:[address] CHEST W/CONTRAS T & 3D: CHET WALKER [id number] -1950 M Exm Date: JUN 07, 2024@14:29 Req Phys: JOHANA REDDY Loc: [facility]COLOGY [facility] (Req'g Im Loc: [facility]-CT IMAGING Service: Unknown [facility] [address] [place] [address] (Case [id number] COMPLETE) CT THORAX, DIAGNOSTIC, W/CONTRAS(CT Detailed) CPT:35792 Contrast Media : Non-ionic Iodinated Reason for Study: Shortness of breath (Case [id number] COMPLETE) UNLISTED CT PROCEDURE (CT Detailed) CPT:78849 CPT Modifiers : 52 REDUCED SERVICES Clinical History: Responsible Attending: Dr. Orantes Attending Contact Number: [id number] Resident Contact Number: CT chest, high resolution Allergies listed in CPRS chart: TRAMADOL Creatinine: CREATININE 0.87 mg/dL 03/06/2024 09:52 /eGFR: STL EGFR (within one year). CREATININE 0.87 mg/dL (03/06/24 09:52) Wt: 233.1 lb [105.73 kg] (05/17/2024 08:37) History of: Renal failure, chronic or acute renal disease: NO Report Status: Verified Date Reported: JUN 07, 2024 Date Verified: JUN 07, 2024 Demand Inspector E-Sig:/ES/LISHA BRYANT Report: , [id number], [id number] INDICATION: Shortness of breath COMPARISON: None TECHNIQUE: [...] suggested. Primary Interpreting Staff: LISHA BRYANT, RADIOLOGIST (Demand Inspector) /LISHA AVITIA Teodora [facility] Jun 07, 2024 02:[address] ABD PEL W/CONT & 3D: CHET WALKER [id number] -1950 M Exm Date: JUN 07, 2024@14:28 Req Phys: JOHANA REDDY Pat Loc: [facility] (Req'g Img Loc: [facility]CT IMAGING [facility] Service: Unknown [facility] [address] [place] [address] (Case [id number] COMPLETE) CT ABDOMEN AND PELVIS W/CONTRAST (CT Detailed) CPT:28392 Contrast Media : Non-ionic Iodinated Reason for Study: enlarged spleen (Case 3137 COMPLETE) CT 3D RENDERING W INDEPENDENT WOR(CT Detailed) CPT:76888 Clinical History: Responsible Attending: Dr. Orantes Attending Contact Number: [phone] Resident Contact Number: spleenomegally, evaluation for liver, lymphadenopathy Allergies listed in CPRS chart: TRAMADOL Creatinine:CREATININE 0.87 mg/dL 03/06/2024 09:52 /eGFR: STL EGFR (within one year). CREATININE 0.87 mg/dL (03/06/24 09:52) Wt: 233.1 lb [105.73 kg] (05/17/2024 08:37) History of: Renal failure, chronic or acute renal disease: NO Report Status: Verified Date Reported: JUN 07, 2024 Date Verified: JUN 07, 2024 Demand Inspector E-Sig:/ES/LISHA BRYANT Report: , [id number], [id number] INDICATION: Shortness of breath COMPARISON: None TECHNIQUE: [...] suggested. Primary Interpreting Staff: LISHA BRYANT, RADIOLOGIST (Demand Inspector) /LISHA AVITIA [facility] Encounter Notes: All associated encounter notes This section contains the clinical notes associated to the Encounter. Date/Time Encounter Note(s) Provider Source May 16, 2024 09:44 AM ATTENDING NOTE: LOCAL TITLE: ATTENDING MD NOTE STL STANDARD TITLE: ATTENDING NOTE DATE OF NOTE: MAY 16, 2024@09:44 ENTRY DATE: MAY 16, 2024@09:44:48 AUTHOR: MANUEL THOMAS EXP COSIGNER: URGENCY: STATUS: COMPLETED PCP was alerted by Optometry regarding patient's history of a pituitary adenoma. I called patient up regarding his history of pituitary adenoma. He stated that he was diagnosed over 15 years ago at OSH but he did not remember the name of the hospital. On chart review, he was previously treated with Bromocriptine 2.5mg from 9900-5529 [facility]. Patient stated that he had headache at the time of diagosis, and he was told that his tumor has shrinked after treatment. He has no recurrence of symptoms after treatment. He had declined endocrinology referral repeatedly between 6033-2726. Patient had formal [place] Visual Field revealed no VF defects that would be consistent with chiasmal compression (most recently done in 11/2023). There are no pertinent MRI reports available in CPRS or in [facility]. Patient is now agreeable to endocrine referral. Will consult endocrine. A total of 20 min was spent talking to patient and reviewing chart. /shen/ manuel thomas M.D. Staff Physician Signed: 05/16/2024 09:58 MANUEL THOMAS [facility]
--- OUTSIDE RECORDS SUMMARY | 2024-11-17 03:45 | XMS_ITS | Encounter Summary ---
Author Name [facility] [place] [facility] [place] [facility] [place] Address [address] [place] [address] Care Team Providers Care Fur Tinter Name Role Phone MANUEL BAIRD Primary Care [...] PART A Apr 08, 2017 PART A [id number] ASHLEY WALKER PATIENT Selected Encounter This section includes the information on record at [place] for the Encounter. Date/Time Encounter Type Encounter Description Reason Provider Source May 18, 2024 10:30 AM SELF CARE MNGMENT TRAINING PHYSICAL THERAPY ICD-10-CM M54.50 Low back pain, unspecified ABEBE TORRES Nav Encounter Template Text not used by [place] Assessments - Encounter Diagnoses This section includes the primary and secondary diagnoses documented for the Encounter. Date/Time Primary/Secondary Diagnosis Diagnosis Name Provider Source May 18, 2024 04:23 PM PRIMARY Low back pain, unspecified ABEBE TORRES [facility] Plan of Treatment: Future Appointments (+ 6 months) and Future Tests (+/- 45 days) The Plan of Treatment section includes future care activities for the [facility] [place] [facility] This section includes future appointments and future orders which are active, pending or scheduled. Future Appointments This section includes appointments that were scheduled to occur 6 months from the date of the Encounter, up to a maximum of 20 appointments. The data comes from all [place] treatment facilities. Appointment Date/Time Appointment Type Appointme nt Facility Name May 31, 2024 02:00 PM AMBULATORY - SURGERY [facility] Jun 05, 2024 08:40 AM AMBULATORY - NONE [facility] Jun 07, 2024 12:30 PM [facility] Jun 07, 2024 01:30 PM AM[facility]ATORY - NONE [facility] Jun 08, 2024 10:00 AM AMBULATORY - MEDICINE [facility] Jun 09, 2024 01:00 PM AMBULATORY - SURGERY [facility] Jun 19, 2024 07:00 AM [facility] Jun 19, 2024 08:00 AM AMBULATORY - NONE [facility] Jun 29, 2024 10:15 AM [facility] Jun 29, 2024 01:00 PM AMBULATORY - SURGERY [facility] Jul 03, 2024 10:30 AM AMBULATORY - MEDICINE [facility] Jul 14, 2024 12:54 PM AMBULATORY - SUR[facility]ERY [facility] Jul 20, 2024 10:00 AM AMBULATORY - MEDICINE [facility] Aug 02, 2024 09:45 AM [facility] Aug 24, 2024 10:00 AM AM[facility]ULATORY - MEDICINE [facility] Aug 24, 2024 10:30 AM AMBULATORY - MEDICINE [facility] Aug 30, 2024 09:30 AM AMBULATORY - MEDICINE [facility] Aug 31, 2024 01:00 PM AMBULATORY - SURGERY [facility] Sep 21, 2024 01:30 PM [facility]ICINE [facility] Sep 22, 2024 11:00 AM [facility] Active, Pending, and Scheduled Orders This [...] BLOOD FIT X1 SCREEN STOOL FECES SP [facility] Lab Results: +/- 30 days of [...] Range Comment Jun 09, 2024 11:48 AM [facility] MICRAL/CREAT PROFILE (STL) Specimen Type: URINE No comment entered. Ordering Provider: WELLINGTON SERNA Report Released Date/Time: Jun 07, 2024 01:44 PM Reporting Lab: [facility] [address] [address] Performing Lab: [facility] [address] [address] URINE ALBUMIN (PB-STL) 167.5 mg/L uACR (STL) 103 mg/g H 0-29 CREATININE URINE/OTHERS 163.4 mg/dL 63-166 Jun 07, 2024 02:22 PM [facility] BRAIN NATRIURETIC PEPTIDE Specimen Type: PLASMA No comment entered. Ordering Provider: WELLINGTON SERNA Report Released Date/Time: Jun 07, 2024 01:32 PM Reporting Lab: [facility] [address] [address] Performing Lab: [facility] [address] [address] BRAIN NATRIURETIC PEPTIDE 198.9 pg/mL H 0-100 Jun 07, 2024 02:22 PM [facility] hsCRP Specimen Type: SERUM No comment entered. Ordering Provider: WELLINGTON SERNA Report Released Date/Time: Jun 07, 2024 01:42 PM Reporting Lab: [facility] [address] [place] [phone] Performing Lab: [address] [address] hsCRP 4.65 mg/L H 0-3.1 Jun 07, 2024 02:22 PM [facility] MAGNESIUM Specimen Type: PLASMA No comment entered. Ordering Provider: WELLINGTON SERNA Report Released Date/Time: Jun 07, 2024 01:44 PM Reporting Lab: [address] [address] Performing Lab: [address] [address] MAGNESIUM 1.7 mg/dL 1.6-2.6 Jun 05, 2024 09:00 AM [facility] FSH (STL-MA) Specimen Type: SERUM Comment: Test Performed by [email or web address], [employer] [place], [address] [place] [address] Tommie Garcia M.D., Ph.D., Director of Laboratories , [facility] [id number] Ordering Provider: EMILIA CALHOUN Report Released Date/Time: Jun 05, 2024 08:45 AM Reporting Lab: [address] [address] Performing Lab: [address] FSH (STL-MA) 5.5 m[IU]/mL 1.4-12.8 Jun 05, 2024 09:00 AM [facility] LUTEINIZING HORMONE Specimen Type: SERUM Comment: Test Performed by [email or web address], [employer] [place], [address] [place] [address] Tommie Garcia M.D., Ph.D., Director of Laboratories , [facility] [id number] Ordering Provider: EMILIA CALHOUN Report Released Date/Time: Jun 05, 2024 08:45 AM Reporting Lab: [facility] [address] [facility] [address] Performing Lab: [address] LUTEINIZING HORMONE 2.7 m[IU]/mL 1.6-15.2 Jun 05, 2024 09:00 AM [facility] PROLACTIN (L-Eff 08/15) Specimen Type: PLASMA No comment entered. Ordering Provider: EMILIA CALHOUN Report Released Date/Time: Jun 05, 2024 08:45 AM Reporting Lab: [address] [address] Performing Lab: [place] [address] [facility] [address] PROLACTIN (STL-Eff 08/15) 41.98 ng/mL H 3.5-19.4 Jun 05, 2024 09:00 AM [facility] FREE T4 (MA-PB) Specimen Type: SERUM No comment entered. Ordering Provider: EMILIA CALHOUN Report Released Date/Time: Jun 05, 2024 08:45 AM Reporting Lab: [address] [address] Performing Lab: [address] [address] FREE T4 (MA-PB) 0.78 ng/mL 0.7-1.48 Jun 05, 2024 09:00 AM [facility] TSH (MA-PB) Specimen Type: SERUM No comment entered. Ordering Provider: EMILIA CALHOUN Report Released Date/Time: Jun 05, 2024 08:45 AM Reporting Lab: [address] [address] Performing Lab: [facility] [address] [facility] [address] TSH 3.510 u[IU]/mL 0.47-5 May 17, 2024 10:20 AM [facility] JAK2 MUTATION (STL) Specimen Type: PLASMA Comment: A JAK2 V617F mutation is not detected. No mutation is detected in exon 12 of JAK2. Ordering Provider: JONATHON CHAU Report Released Date/Time: May 17, 2024 09:56 AM Reporting Lab: [facility] [address] [facility] [address] Performing Lab: [address] JAK2 MUTATION (STL) NOT DETECTED NOT DETECTED May 17, 2024 10:20 AM [facility] HAPTOGLOBIN (STL) Specimen Type: PLASMA Comment: No hemolysis noted. Ordering Provider: JONATHON CHAU Report Released Date/Time: May 17, 2024 09:56 AM Reporting Lab: [facility] [address] [facility] [address] Performing Lab: [facility] [address] [facility] [address] HAPTOGLOBIN (STL) 94 mg/dL 44-215 May 17, 2024 10:20 AM [facility] LDH Specimen Type: PLASMA Comment: No hemolysis noted. Ordering Provider: JONATHON CHAU Report Released Date/Time: May 17, 2024 09:56 AM Reporting Lab: [facility] [address] [facility] [address] Performing Lab: [facility] [address] [facility] [address] LDH 272 U/L H 125-243 May 17, 2024 10:20 AM [facility] GGT GAMMA-GT Specimen Type: PLASMA Comment: No hemolysis noted. Ordering Provider: JONATHON CHAU Report Released Date/Time: May 17, 2024 09:56 AM Reporting Lab: [facility] [address] [facility] [address] Performing Lab: [facility] [address] [facility] [address] GGT GAMMA-GT 81 [IU]/L H 12-64 May 17, 2024 10:20 AM [facility] COMPREHENSIVE METABOLIC PANEL Specimen Type: PLASMA Comment: No hemolysis noted. Ordering Provider: JONATHON CHAU Report Released Date/Time: May 17, 2024 09:56 AM Reporting Lab: [facility] [address] [facility] [address] Performing Lab: [place] [address] [facility] [address] CREATININE 1.05 mg/dL 0.7-1.3 UREA NITROGEN 16.4 [...] 75.4 >60 May 17, 2024 10:20 AM [facility] CBC Specimen Type: BLOOD No comment entered. Ordering Provider: JONATHON CHAU Report Released Date/Time: May 17, 2024 09:56 AM Reporting Lab: [facility] [address] [facility] [address] Performing Lab: [address] [address] WBC 5.0 10*3/uL 3.6-11.2 RBC 5.01 10*6/uL [...] AM QUIT TOBACCO >7 YEARS AGO [facility] Tobacco Use History This section includes a history of the smoking, or tobacco-related health factors, that were collected on or before the date of the Encounter. The data comes from the [place] facility where the Encounter took place. Date/Time Smoking Status/Tobacco Use Comment Juan acility Sep 30, 2015 10:12 AM QUIT TOBACCO >7 YEARS AGO [facility] Oct 29, 2014 10:23 AM QUIT TOBACCO >7 YEARS AGO [facility] Dec 27, 2013 01:27 PM QUIT TOBACCO >7 YEARS AGO [facility] Feb 24, 2013 02:01 PM LIFETIME NON-USER OF TOBACCO [facility] Feb 11, 2009 10:09 AM QUIT TOBACCO >7 YEARS AGO [facility] Oct 06, 2006 09:30 AM CURRENT NON-TOBACC O USER-HX OF USE [facility] Oct 06, 2006 09:30 AM TOBACCO TERMINATION STAGE [facility] Advance Directives: All historical and current Section Date Range: From patient's date of to the date document was created. This section includes ALL of a patient's completed or amended [place] Advance and Rescinded Directives. The entries below indicate that a directive exists for the patient, but an actual copy is not included with this document. The data comes from all [facility]. Date Advance Directives Provider Source Jan 19, 2017 ADVANCE DIRECTIVE DISCUSSION ERICK BARDALES [facility] Radiology Reports: +/- 30 days of [...] CHEST W/CONTRAS T & 3D: CHET WALKER [id number] -1950 M Exm Date: JUN 07, 2024@14:29 Req Phys: JOHANA REDDY Loc: [facility]-ONCOLOGY K[facility]I (Req'g Im Loc: [facility]-CT IMAGING Service: [facility], [facility] [address] [place] [address] (Case [id number] COMPLETE) CT THORAX, DIAGNOSTIC, W/CONTRAS(CT Detailed) CPT:44622 Contrast Media : Non-ionic Iodinated Reason for Study: Shortness of breath (Case [id number] COMPLETE) UNLISTED CT PROCEDURE (CT Detailed) CPT:69811 CPT Modifiers : 52 REDUCED SERVICES Clinical History: Responsible Attending: Dr. Orantes Attending Contact Number: [phone] Resident Contact Number: CT chest, high resolution Allergies listed in CPRS chart: TRAMADOL Creatinine: CREATININE 0.87 mg/dL 03/06/2024 09:52 /eGFR: STL EGFR (within one year). CREATININE 0.87 mg/dL (03/06/24 09:52) Wt: 233.1 lb [105.73 kg] (05/17/2024 08:37) History of: Renal failure, chronic or acute renal disease: NO Report Status: Verified Date Reported: JUN 07, 2024 Date Verified: JUN 07, 2024 Care Advocate E-Sig:/ES/LISHA BRYANT Report: , [id number], [id number] INDICATION: Shortness of breath COMPARISON: None TECHNIQUE: [...] suggested. Primary Interpreting Staff: LISHA BRYANT, RADIOLOGIST (Care Advocate) /LISHA AVITIA [facility] Jun 07, 2024 02:[address] ABD PEL W/CONT & 3D: CHET WALKER [id number] -1950 M Exm Date: JUN 07, 2024@14:28 Req Phys: JOHANA REDDY Loc: [facility]COLOGY [facility]I (Req'g Img Loc: [facility]-CT IMAGING [facility] Service: Unknown [facility], [facility] [address] [place] [address] (Case [id number] COMPLETE) CT ABDOMEN AND PELVIS W/CONTRAST (CT Detailed) CPT:56819 Contrast Media : Non-ionic Iodinated Reason for Study: enlarged spleen (Case 3137 COMPLETE) CT 3D RENDERING W INDEPENDENT WOR(CT Detailed) CPT:31754 Clinical History: Responsible Attending: Dr. Orantes Attending Contact Number: [phone] Resident Contact Number: spleenomegally, evaluation for liver, lymphadenopathy Allergies listed in CPRS chart: TRAMADOL Creatinine:CREATININE 0.87 mg/dL 03/06/2024 09:52 /eGFR: STL EGFR (within one year). CREATININE 0.87 mg/dL (03/06/24 09:52) Wt: 233.1 lb [105.73 kg] (05/17/2024 08:37) History of: Renal failure, chronic or acute renal disease: NO Report Status: Verified Date Reported: JUN 07, 2024 Date Verified: JUN 07, 2024 Care Advocate E-Sig:/ES/LISHA BRYANT Report: , [id number], [id number] INDICATION: Shortness of breath COMPARISON: None TECHNIQUE: [...] suggested. Primary Interpreting Staff: LISHA BRYANT, RADIOLOGIST (Care Advocate) /LISHA AVITIA [facility] Encounter Notes: All associated encounter notes This section contains the clinical notes associated to the Encounter. Date/Time Encounter Note(s) Provider Source May 18, 2024 10:11 AM PHYSICAL THERAPY D ISCHARGE NOTE: LOCAL TITLE: PT DISCHARGE STL STANDARD TITLE: PHYSICAL THERAPY DISCHARGE NOTE DATE OF NOTE: MAY 18, 2024@10:11 ENTRY DATE: MAY 18, 2024@10:11:38 AUTHOR: ABEBE TORRES EXP COSIGNER: URGENCY: STATUS: COMPLETED Primary Therapist: Abebe Torres DPT Seen By: Chelsie Billings PTA Current PC Provider: MANUEL BAIRD Current PC Team: AUDREY KAUR A Current Pat. 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 Date: Feb 02, 2024 DST ID: Orderable Item: PT OUTPT STL Consult: Consult Request Provisional Diagnosis: Spinal stenosis, lumbar region with neurogenic claudication(ICD-10-CM M48.062) Reason For Request: Physical Therapy Outpatient Consul Chart Review: [facility]: Chart Review: Imaging: Primary provider:Mazin Start of Care:02/28/24 Reevaluation due:03/29/24 POC through:05/08/24 Visits to date:7 No shows/cancellations: 0 Treatment time: 30 mins. Therapeutic exercise: 15 mins. Self mgmt: 15mins. Gait: mins, Subjective: Arrives using F-22. Feels as though therapy is helping.. --Onset: chronic back issues. 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 goal(s): Pt reports he'd like to be able to go up/down steps without side stepping. --ACTIVITY LIMITATIONS OF PATIENT: OVERHEAD REACH:able DRESSING: able LIFTING: <20lbs SLEEP:able SITTING:able HYGIENE: Functional abilities: bed mobility:xw supine to sitting: sit <-> stand: OBJECTIVE: OBJECTIVE MEASURES: 03/28/2024 Assistive Device:SPC, F22 Cognition: Pt. is alert and oriented. Pt. is appropriate in conversation and answers questions directly. Posture: Lumbar Spine: [x] Decreased [] Increased Other: Pelvis: [] Anterior [x]Posterior [] Neutral [] Rotated PSIS: MMT: Illiopsoas: 5/5 Gluts: 4-/5 5Times Sit to stand: 13.5s EVAL: Short Performance Physical Battery: 7/12pts Fallers : 8.2 Non Fallers: 9.5 Men: 10.4 Women: 9.7 Treatment: Therapeutic exercise: 15 mins. -15 min warm up on nu step L 3 -promax 3x15 sets 80 lbs - heel raises x20 -hip flexor stretch self mgmt x15min -reviewd recommended gym routine -dsicussed RPE natalie scale and how to monitor HR/cardiovascular load. recommended to stay in the green zone on NATALIE between - Access Code: [email or web address] URL: [email or web address] Date: 02/28/2024 Prepared by: Brian Exercises - Supine Bridge - 1 x daily - 7 x weekly - 3 sets - 10 reps - Supine Hamstring Stretch with Strap - 1 x daily - 7 x weekly - 3 sets - 10 reps - Supine Lower Trunk Rotation - 1 x daily - 7 x weekly - 3 sets - 10 reps - Standing Heel Raises - 1 x daily - 7 x weekly - 4 sets - 20 reps -Chin tucks 10 reps, x 3 sets, daily -scapular retraction, 10 reps x 3 sets, daily -wall hip flexor stretch, 4 reps, bilaterally 30 sec hold, daily. -Seated sciatic nerve glide, 10 reps, daily. Assessment: Patient doing well , starting going to the [place] --- HE is happy with the progress he is making htere. and wants to be dc'd Goals: Short term: 3-4 weeks 1) Pt. will demonstrate independence with current HEP x 1 MET 2) Pt. will report pain at worst 6/10MET 3) Pt. 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 to report pain at worst 5/10 CONT 3) Pt. to improve >MDC on the SPPB indicating improved balance and strength CONT [place]/family demonstrated good understanding of education and that learning occured. Equipment: F-22 Plan: DC WITH HEP; patient to continue with his workout at the local fitness center. /shen/ ABEBE TORRES PT, DPT, NCS Signed: 05/18/2024 16:23 ABEBE TORRES [facility]
--- OUTSIDE RECORDS SUMMARY | 2024-11-17 03:45 | XMS_ITS | Encounter Summary ---
Author Name [facility] Organization [facility] Address [address] [place] [address] Care Team Providers Care Cobol Application Developer Name Role Phone MANUEL BAIRD Primary Care [...] PART A Apr 08, 2017 PART A [id number] [phone] ASHLEY FINK PATIENT Selected Encounter This section includes the information on record at [place] for the Encounter. Date/Time Encounter Type Encounter Description Reason Pro vider Source May 04, 2024 10:56 AM Outpatient Encounter ADMIN PAT ACTIVTIES (MASNONCT) IHE Encounter Template Text not used by PA Plan of Treatment: Future Appointments (+ 6 [...] comes from all [facility]. Appointment Date/Time Appointment Type Appointme nt Facility Name May 12, 2024 10:30 AM AMBULATORY - SURGERY [facility] May 17, 2024 09:00 AM AMBULATORY - MEDICINE [facility] May 18, 2024 10:30 AM AMBULATORY - REHAB MEDICIN E [facility] May 31, 2024 02:00 PM AMBULATORY - SURGERY [facility] Jun 05, 2024 08:40 AM AMBULATORY - NONE [facility] Jun 07, 2024 12:30 PM AMBULATORY - MEDICINE [facility] Jun 07, 2024 01:30 PM AMBULATORY - NONE [facility] Jun 08, 2024 10:00 AM AMBULATORY - MEDICINE [facility] Jun 09, 2024 01:00 PM AMBULATORY - SURGERY [facility] Jun 19, 2024 07:00 AM AMBULATORY - MEDICINE [facility] Jun 19, 2024 08:00 AM AMBULATORY - NONE [facility] Jun 29, 2024 10:15 AM AMBULATORY - MEDICINE [facility] Jun 29, 2024 01:00 PM AMBULATORY - SURGERY [facility] Jul 03, 2024 10:30 AM AMBULATORY - MEDICINE [facility] Jul 14, 2024 12:54 PM AMBULATORY - SURGERY [facility] Jul 20, 2024 10:00 AM AMBULATORY - MEDICINE [facility] Aug 02, 2024 09:45 AM AMBULATORY - MEDICINE [facility] Aug 24, 2024 10:00 AM AMBULATORY - MEDICINE [facility] Aug 24, 2024 10:30 AM AMBULATORY - MEDICINE [facility] Aug 30, 2024 09:30 AM AMBULATORY MEDICINE [facility] Active, Pending, and Scheduled Orders This section includes a listing of several types of active, pending, and scheduled orders, including clinic medications orders, diagnostic test orders, procedure orders and consult orders; where the start date of the order is 45 days before the date of the Encounter or 45 days after the date of theEncounter. The data comes from all [place] treatment facilities. Test Date/Time Test Type Test Details Facility Name March 20, 2024 12:36 PM Consult Order [facility] DENTAL SPEC Cons Needle Control [facility] April 07, 2024 12:00 AM Laboratory - Chemi stry Order OCCULT BLOOD FIT X1 SCREEN STOOL FECES SP [facility] Lab Results: +/- 30 days of the encounter This section includes the Chemistry and Hematology Lab Results on record with [place] for the patient. Radiology Reports and Pathology Reports are provided separately, in subsequent sections. Lab Results This section contains the Chemistry/Hematology Results that were resulted 30 days before or 30 daysafter the date of the Encounter. Date/Time Source Result Type Result - Unit Interpretation Reference Range Comment May 17, 2024 10:20 AM [facility] JAK2 MUTATION (STL) Specimen Type: PLASMA Comment: A JAK2 [id number] mutation is not detected. No mutation is detected in exon 12 of JAK2. Ordering Provider: Emeli CHAU Report Released Date/Time: May 17, 2024 09:56 AM Reporting Lab: [facility] [address] [place] [phone] Performing Lab: [facility] [id number] [facility] JAK2 MUTATION (STL) NOT DETECTED NOT DETECTED May 17, 2024 10:20 AM [facility] LDH Specimen Type: PLASMA Comment: No hemolysis noted. Ordering Provider: Emeli CHAU Report Released Date/Time: May 17, 2024 09:56 AM Reporting Lab: [facility] [address] [place] [phone] Performing Lab: [address] [address] LDH 272 U/L H 125-243 May 17, 2024 10:20 AM [facility] HAPTOGLOBIN (STL) Specimen Type: PLASMA Comment: No hemolysis noted. Ordering Provider: Emeli CHAU Report Released Date/Time: May 17, 2024 09:56 AM Reporting Lab: [address] [address] Performing Lab: [address] [address] HAPTOGLOBIN (STL) 94 mg/dL 44-215 May 17, 2024 10:20 AM [facility] GGT GAMMA-GT Specimen Type: PLASMA Comment: No hemolysis noted. Ordering Provider: Emeli CHAU Report Released Date/Time: May 17, 2024 09:56 AM Reporting Lab: [address] [address] Performing Lab: [address] [address] GGT GAMMA-GT 81 [IU]/L H 12-64 May 17, 2024 10:20 AM [facility] COMPREHENSIVE METABOLIC PANEL Specimen Type: PLASMA Comment: No hemolysis noted. Ordering Provider: Emeli CHAU Report Released Date/Time: May 17, 2024 09:56 AM Reporting Lab: [address] [address] Performing Lab: [address] [address] CREATININE 1.05 mg/dL 0.7-1.3 UREA NITROGEN 16.4 [...] 75.4 >60 May 17, 2024 10:20 AM [facility] CBC Specimen Type: BLOOD No comment entered. Ordering Provider: Emeli CHAU Report Released Date/Time: May 17, 2024 09:56 AM Reporting Lab: [facility] [address] [place] [address] Performing Lab: [facility] [address] [place] [phone] WBC 5.0 10*3/uL 3.6-11.2 RBC 5.01 10*6/uL [...] 10*3/uL 0.00-0.20 April 07, 2024 11:40 AM [facility] HIV COMBO FOURTH GENERATION (STL) Specimen Type: SERUM No comment entered. Ordering Provider: JAYNE OQUENDO Report Released Date/Time: April 07, 2024 10:44 AM Reporting Lab: [facility] [address] [place] [address] Performing Lab: [facility] [address] [place] [phone] HIV COMBO FOURTH GENERATION (STL) Nonreactive Nonreactive April 07, 2024 11:40 AM [facility] PT/INR NEW (STL-MA) Specimen Type: PLASMA No comment entered. Ordering Provider: JAYNE OQUENDO Report Released Date/Time: April 07, 2024 10:44 AM Reporting Lab: [facility] [address] [place] [phone] Performing Lab: [facility] [address] [place] [phone] PROTIME 13.0 s H 9.4-12.5 INR VALUE 1.2 {INR} April 07, 2024 11:40 AM [facility] HEP C Ab HCV Ab (L) Specimen Type: SERUM No comment entered. Ordering Provider: JAYNE OQUENDO Report Released Date/Time: April 07, 2024 10:44 AM Reporting Lab: [address] [address] Performing Lab: [address] [phone] HEP C Ab HCV Ab ([facility]) Nonreactive Nonreactive April 07, 2024 11:40 AM [facility] LIPID PANEL (L) Specimen Type: PLASMA No comment entered. Ordering Provider: JAYNE OQUENDO Report Released Date/Time: April 07, 2024 11:14 AM Reporting Lab: [facility] [address] [place] [phone] Performing Lab: [address] [address] CHOLESTEROL 180 mg/dL 0-200 TRIGLYCERIDE 145 mg/dL 0-150 CALCULATED LDL 117 mg/dL HDL(New) 34 mg/dL L >40 April 07, 2024 11:40 AM [facility] CBC Specimen Type: BLOOD Comment: No clots Ordering Provider: JAYNE OQUENDO Report Released Date/Time: April 07, 2024 10:44 AM Reporting Lab: [facility] [address] [place] [phone] Performing Lab: [address] [address] WBC 4.4 10*3/uL 3.6-11.2 RBC 5.01 10*6/uL [...] SCRNPERF YES April 07, 2024 10:01 AM [facility] GLUCOSE,BLOOD-poct (STL) Specimen Type: BLOOD Comment: Test Performed by: [id number] Meter #: [id number] Ordering Provider: MANUEL BAIRD Report Released Date/Time: April 07, 2024 02:51 PM Reporting Lab: [facility] [address] [facility] [phone] Performing Lab: [place] [address] [facility] [address] GLUCOSE,BLOOD-p oct (STL) 206 mg/dL H 72-99 Social History: Smoking Status (Most current) and Tobacco Use (All prior to encounter date) This section includes the most current, and the historical, smoking and tobacco- related health factors from the [place] facility where the Encounter took place. Current Smoking Status This section includes the most current smoking, or tobacco-related health factor, from the [facility] where the Encounter took place. Date/Time Current Smoking Status Comment Radhika goins Aug 11, 2016 10:34 AM QUIT TOBACCO >7 YEARS AGO [facility] Tobacco Use History This section includes a history of the smoking, or tobacco-related health factors, that were collected on or before the date of the Encounter. The data comes from the [place] facility where the Encounter took place. Date/Time Smoking Status/Tobacco Use Comment F acility Sep 30, 2015 10:12 AM QUIT TOBACCO >7 YEARS AGO [facility] Oct 29, 2014 10:23 AM QUIT TOBACCO >7 YEARS AGO [facility] Dec 27, 2013 01:27 PM QUIT TOBACCO >7 YEARS AGO [facility] Feb 24, 2013 02:01 PM LIFETIME NON-USER OF TOBACCO [facility] Feb 11, 2009 10:09 AM QUIT TOBACCO >7 YEARS AGO [facility] Oct 06, 2006 09:30 AM CURRENT NON-TOBACC O USER-HX OF USE [facility] Oct 06, 2006 09:30 AM TOBACCO TERMINATION STAGE [facility] Advance Directives: All historical and current Section Date Range: From patient's date of to the date document was created. This section includes ALL of a patient's completed or amended [place] Advance and Rescinded Directives. The entries below indicate that a directive exists for the patient, but an actual copy is not included with this document. The data comes from all [place] facilities. Date Advance Directives Provider Source Jan 19, 2017 ADVANCE DIRECTIVE DISCUSSION ERICK BARDALES [facility] Encounter Notes: All associated encounter notes This section contains the clinical notes associated to the Encounter. Date/Time Encounter Note(s) Provider Source May 04, 2024 10:56 AM PHYSICIAN LETTERS: LOCAL TITLE: NO SHOW LETTER [facility] STANDARD TITLE: PHYSICIAN LETTERS DATE OF NOTE: MAY 04, 2024@10:56 ENTRY DATE: MAY 04, 2024@10:57:02 AUTHOR: ARNOLD LOMAS EXP COSIGNER: URGENCY: STATUS: COMPLETED [facility] [address] [place] [address] MAY 04, 2024 ABIEL FINK [address], [place] [address] Dear Abiel Fink, Thank you for choosing the [facility] as your primary choice for health care. As a partner in your health care, we are attempting to contact you because our records indicate that you did not make it to your scheduled appointment, and we would like to re-schedule. Please call us at [phone], extension [phone] to speak to us regarding making an appointment in the [facility] clinic. Your good health is important to [...] the clinic to inquire about scheduling. Sincerely, ARNOLD LOMAS ADvanced diet assistant ABIEL FINK,ARNOLD Gallego [facility]
--- OUTSIDE RECORDS SUMMARY | 2024-11-17 03:45 | XMS_ITS | Encounter Summary ---
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 Date/Time Encounter Type Encounter Description Reason Provider Source May 17, 2024 09:00 AM OFFICE O/P [place] 60 MIN ONCOLOGY/TUMOR ICD-10-CM R16.1 Splenomegaly, not elsewhere classified JONATHON CHAU IHNav Encounter Template Text not used by [place] Assessments - Encounter Diagnoses This section includes the primary and secondary diagnoses documented for the Encounter. Date/Time Primary/Secondary Diagnosis Diagnosis Name Provider Source May 17, 2024 04:58 PM PRIMARY Splenomegaly, not elsewhere classified JONATHON CHAU Imelda [facility] May 17, 2024 04:58 PM SECONDARY Thrombocytopenia, unspecified JONATHON CHAU [facility] Plan of Treatment: Future Appointments (+ 6 months) and Future Tests (+/- 45 days) The Plan of Treatment section includes future care activities for the patient from all [place] treatmentkaiser hayward. This section includes future appointments and future orders which are active, pending or scheduled. Future Appointments This section includes appointments that were scheduled to occur 6 months from the date of the Encounter, up to a maximum of 20 appointments. The data comes from all [place] treatment facilities. Appointment Date/Time Appointment Type Appointme nt Facility Name May 18, 2024 10:30 AM AMBULATORY - REHAB MEDICIN E [facility] May 31, 2024 02:00 PM AMBULATORY - SURGERY [facility] Jun 05, 2024 08:40 AM AMBULATORY - NONE [facility] Jun 07, 2024 12:30 PM AMBULATORY - MEDICINE [facility] Jun 07, 2024 01:30 PM AMBULATORY - NONE [facility] Jun 08, 2024 10:00 AM AMBULATORY - MEDICINE ED [facility] Jun 09, 2024 01:00 PM AMBULATORY - SURGERY [facility] Jun 19, 2024 07:00 AM AMBULATORY - MEDICINE [facility] Jun 19, 2024 08:00 AM AMBULATORY - NONE [facility] Jun 29, 2024 10:15 AM AMBULATORY - MEDICINE [facility] Jun 29, 2024 01:00 PM AMBULATORY - SURGERY [facility] Jul 03, 2024 10:30 AM AMBULATORY - MEDICINE ED [facility] Jul 14, 2024 12:54 PM AMBULATORY - SURGERY [facility] Jul 20, 2024 10:00 AM AMBULATORY - MEDICINE ED [facility] Aug 02, 2024 09:45 AM AMBULATORY - MEDICINE [facility] Aug 24, 2024 10:00 AM AMBULATORY - MEDICINE [facility] Aug 24, 2024 10:30 AM AMBULATORY - MEDICINE [facility] Aug 30, 2024 09:30 AM AMBULATORY - MEDICINE [facility] Aug 31, 2024 01:00 PM AMBULATORY - SURGERY [facility] Julián [facility] Sep 21, 2024 01:30 PM AMBULATORY - MEDICINE [facility] Active, Pending, and Scheduled Orders This section includes a listing of several types of active, pending, and scheduled orders, including clinic medications orders, diagnostic test orders, procedure orders and consult orders; where the start date of the order is 45 days before the date of the Encounter or 45 days after the date of theEncounter. The data comes from all [place] treatment facilities. Test Date/Time Test Type Test Details Facility Name April 07, 2024 12:00 AM Laboratory - Chemi lidya Order OCCULT BLOOD FIT X1 SCREEN STOOL FECES SP [facility] Lab Results: +/- 30 days of the encounter This section includes the Chemistry and Hematology Lab Results on record with [place] for the patient. Radiology Reports and Pathology Reports are provided separately, in subsequent sections. Lab Results This section contains the Chemistry/Hematology Results that were resulted 30 days before or 30 daysafter the date of the Encounter. Date/Time Source Result Type Result - Unit Interpretation Reference Range Comment Jun 09, 2024 11:48 AM [facility] MICRAL/CREAT PROFILE (STL) Specimen Type: URINE No comment entered. Ordering Provider: WELLINGTON SON Report Released Date/Time: Jun 07, 2024 01:44 PM Reporting Lab: [facility] [address] [facility] [address] Performing Lab: [place] [address] [facility] [address] URINE ALBUMIN (PB-STL) 167.5 mg/L uACR (STL) 103 mg/g H 0-29 CREATININE URINE/OTHERS 163.4 mg/dL 63-166 Jun 07, 2024 02:22 PM [facility] BRAIN NATRIURETIC PEPTIDE Specimen Type: PLASMA No comment entered. Ordering Provider: WELLINGTON SON Report Released Date/Time: Jun 07, 2024 01:32 PM Reporting Lab: [address] [place] [address] Performing Lab: [place] [address] [facility] [address] BRAIN NATRIURETIC PEPTIDE 198.9 pg/mL H 0-100 Jun 07, 2024 02:22 PM [facility] hsCRP Specimen Type: SERUM No comment entered. Ordering Provider: WELLINGTON SON Report Released Date/Time: Jun 07, 2024 01:42 PM Reporting Lab: [place] [address] [facility] [address] Performing Lab: [address] [address] hsCRP 4.65 mg/L H 0-3.1 Jun 07, 2024 02:22 PM [facility] MAGNESIUM Specimen Type: PLASMA No comment entered. Ordering Provider: WELLINGTON SON Report Released Date/Time: Jun 07, 2024 01:44 PM Reporting Lab: [place] [address] [facility] [address] Performing Lab: [address] [address] MAGNESIUM 1.7 mg/dL 1.6-2.6 Jun 05, 2024 09:00 AM [facility] LUTEINIZING HORMONE Specimen Type: SERUM Comment: Test Performed by [facility], [facility], [address] [place] [address] Tommie Garcia M.D., Ph.D., Director of Laboratories , [facility] [id number] Ordering Provider: EMILIA CALHOUN Report Released Date/Time: Jun 05, 2024 08:45 AM Reporting Lab: [address] [address] Performing Lab: [facility] [address] [facility] LUTEINIZING HORMONE 2.7 m[IU]/mL 1.6-15.2 Jun 05, 2024 09:[address] [facility] FSH (STL-MA) Specimen Type: SERUM Comment: [facility], [facility], [address] [place], [place] Tommie Garcia M.D., Ph.D., Director of Laboratories , [facility] [id number] Ordering Provider: EMILIA CALHOUN Report Released Date/Time: Jun 05, 2024 08:45 AM Reporting Lab: [facility] [address] [facility] [address] Performing Lab: [facility] [address] [facility] FSH (L-MA) 5.5 m[IU]/mL 1.4-12.8 Jun 05, 2024 09:00 AM [facility] PROLACTIN (L-Eff 08/15) Specimen Type: PLASMA No comment entered. Ordering Provider: EMILIA CALHOUN Report Released Date/Time: Jun 05, 2024 08:45 AM Reporting Lab: [address] [address] Performing Lab: [address] [address] PROLACTIN ([facility]-Eff 08/15) 41.98 ng/mL H 3.5-19.4 Jun 05, 2024 09:00 AM [facility] TSH (MA-PB) Specimen Type: SERUM No comment entered. Ordering Provider: EMILIA CALHOUN Report Released Date/Time: Jun 05, 2024 08:45 AM Reporting Lab: [place] [address] [facility] [address] Performing Lab: [address] [address] TSH 3.510 u[IU]/mL 0.47-5 Jun 05, 2024 09:00 AM [facility] FREE T4 (MA-PB) Specimen Type: SERUM No comment entered. Ordering Provider: EMILIA CALHOUN Report Released Date/Time: Jun 05, 2024 08:45 AM Reporting Lab: [facility] [address] [place] [address] Performing Lab: [facility] [address] [place] [phone] FREE T4 (MA-PB) 0.78 ng/mL 0.7-1.48 May 17, 2024 10:20 AM [facility] JAK2 MUTATION (STL) Specimen Type: PLASMA Comment: A JAK2 [id number] mutation is not detected. No mutation is detected in exon 12 of JAK2. Ordering Provider: JONATHON CHAU Report Released Date/Time: May 17, 2024 09:56 AM Reporting Lab: [address] [address] Performing Lab: [address] JAK2 MUTATION (STL) NOT DETECTED NOT DETECTED May 17, 2024 10:20 AM [facility] LDH Specimen Type: PLASMA Comment: No hemolysis noted. Ordering Provider: JONATHON CHAU Report Released Date/Time: May 17, 2024 09:56 AM Reporting Lab: [address] [address] Performing Lab: [address] [address] LDH 272 U/L H 125-243 May 17, 2024 10:20 AM [facility] HAPTOGLOBIN (STL) Specimen Type: PLASMA Comment: No hemolysis noted. Ordering Provider: JONATHON CHAU Report Released Date/Time: May 17, 2024 09:56 AM Reporting Lab: [address] [address] Performing Lab: [address] [address] HAPTOGLOBIN (STL) 94 mg/dL 44-215 May 17, 2024 10:20 AM [facility] GGT GAMMA-GT Specimen Type: PLASMA Comment: No hemolysis noted. Ordering Provider: JONATHON CHAU Report Released Date/Time: May 17, 2024 09:56 AM Reporting Lab: [facility] [address] [place] [phone] Performing Lab: [address] [address] GGT GAMMA-GT 81 [IU]/L H 12-64 May 17, 2024 10:20 AM [facility] COMPREHENSIVE METABOLIC PANEL Specimen Type: PLASMA Comment: No hemolysis noted. Ordering Provider: JONATHON CHAU Report Released Date/Time: May 17, 2024 09:56 AM Reporting Lab: [address] [address] Performing Lab: [address] [address] CREATININE 1.05 mg/dL 0.7-1.3 UREA NITROGEN 16.4 [...] 75.4 >60 May 17, 2024 10:20 AM [facility] CBC Specimen Type: BLOOD No comment entered. Ordering Provider: JONATHON CHAU Report Released Date/Time: May 17, 2024 09:56 AM Reporting Lab: [facility] [address] [place] [phone] Performing Lab: [address] [address] WBC 5.0 10*3/uL 3.6-11.2 RBC 5.01 10*6/uL [...] Pain Height Weight Body Mass Index Source May 17, 2024 08:37 AM 98.6 62 144/79 18 95 233.1 34 [facility] Social History: Smoking Status (Most current) and Tobacco Use (All prior to encounter date) This section includes the most current, and the historical, smoking and tobacco- related health factors from the [place] facility where the Encounter took place. Current Smoking Status This section includes the most current smoking, or tobacco-related health factor, from the [place] facility where the Encounter took place. Date/Time Current Smoking Status Comment Radhika ity Aug 11, 2016 10:34 AM QUIT TOBACCO >7 YEARS AGO [facility] Tobacco Use History This section includes a history of the smoking, or tobacco-related health factors, that were collected on or before the date of the Encounter. The data comes from the [place] facility where the Encounter took place. Date/Time Smoking Status/Tobacco Use Comment Juan acmichael Sep 30, 2015 10:12 AM QUIT TOBACCO >7 YEARS AGO [facility] Oct 29, 2014 10:23 AM QUIT TOBACCO >7 YEARS AGO [facility] Dec 27, 2013 01:27 PM QUIT TOBACCO >7 YEARS AGO [facility] Feb 24, 2013 02:01 PM LIFETIME NON-USER OF TOBACCO [facility] Feb 11, 2009 10:09 AM QUIT TOBACCO >7 YEARS AGO [facility] Oct 06, 2006 09:30 AM CURRENT NON-TOBACC O USER-HX OF USE [facility] Oct 06, 2006 09:30 AM TOBACCO TERMINATION STAGE [facility] Advance Directives: All historical and current Section Date Range: From patient's date of to the date document was created. This section includes ALL of a patient's completed or amended [place] Advance and Rescinded Directives. The entries below indicate that a directive exists for the patient, but an actual copy is not included with this document. The data comes from all [place] facilities. Date Advance Directives Provider Source Jan 19, 2017 ADVANCE DIRECTIVE DISCUSSION ERICK BARDALES [facility] Radiology Reports: +/- 30 days [...] the Encounter. The data comes from all [place] treatment facilities. Date/Time Radiology Report Provider Source Jun 07, 2024 02:[address] CHEST W/CONTRAS T & 3D: CHET WALKER [id number] -1950 M Exm Date: JUN 07, 2024@14:29 Req Phys: JOHANA REDDY Loc: [facility]-ONCOLOGY KANDI (Req'g Img Loc: [facility]-CT IMAGING [facility] Service: Unknown [facility] [address] [place] [address] (Case [id number] COMPLETE) CT THORAX, DIAGNOSTIC, W/CONTRAS(CT Detailed) CPT:93712 Contrast Media : Non-ionic Iodinated Reason for Study: Shortness of breath (Case 3139 COMPLETE) UNLISTED CT PROCEDURE (CT Detailed) CPT:71863 CPT Modifiers : 52 REDUCED SERVICES Clinical History: Responsible Attending: Dr. Orantes Attending Contact Number: [phone] Resident Contact Number: CT chest, high resolution Allergies listed in CPRS chart: TRAMADOL Creatinine: CREATININE 0.87 mg/dL 03/06/2024 09:52 /eGFR: STL EGFR (within one year). CREATININE 0.87 mg/dL (03/06/24 09:52) Wt: 233.1 lb [105.73 kg] (05/17/2024 08:37) History of: Renal failure, chronic or acute renal disease: NO Report Status: Verified Date Reported: JUN 07, 2024 Date Verified: JUN 07, 2024 Oyster Washer E-Sig:/ES/LISHA BRYANT Report: , [id number], [id number] INDICATION: Shortness of breath COMPARISON: None TECHNIQUE: [...] suggested. Primary Interpreting Staff: LISHA BRYANT, RADIOLOGIST (Oyster Washer) /LISHA AVITIA [facility] Jun 07, 2024 02:[address] ABD PEL W/CONT & 3D: CHET WALKER [id number] -1950 M Exm Date: JUN 07, 2024@14:28 Req Phys: KOBY SMITHJOHANA Pat Loc: [facility]-ONCOLOGY KANDI (Req'g Img Loc: [facility]-CT IMAGING [facility] Service: Unknown [facility], [facility] [address] [place] [address] (Case [id number] COMPLETE) CT ABDOMEN AND PELVIS W/CONTRAST (CT Detailed) CPT:32804 Contrast Media : Non-ionic Iodinated Reason for Study: enlarged spleen (Case 3137 COMPLETE) CT 3D RENDERING W INDEPENDENT WOR(CT Detailed) CPT:80146 Clinical History: Responsible Attending: Dr. Orantes Attending Contact Number: [phone] Resident Contact Number: spleenomegally, evaluation for liver, lymphadenopathy Allergies listed in CPRS chart: TRAMADOL Creatinine:CREATININE 0.87 mg/dL 03/06/2024 09:52 /eGFR: STL EGFR (within one year). CREATININE 0.87 mg/dL (03/06/24 09:52) Wt: 233.1 lb [105.73 kg] (05/17/2024 08:37) History of: Renal failure, chronic or acute renal disease: NO Report Status: Verified Date Reported: JUN 07, 2024 Date Verified: JUN 07, 2024 Oyster Washer E-Sig:/ES/LISHA BRYANT Report: , [id number], [id number] INDICATION: Shortness of breath COMPARISON: None TECHNIQUE: [...] suggested. Primary Interpreting Staff: LISHA BRYANT, RADIOLOGIST (Oyster Washer) /LISHA AVITIA [facility] Encounter Notes: All associated encounter notes This section contains the clinical notes associated to the Encounter. Date/Time Encounter Note(s) Provider Source Aug 02, 2024 04:54 PM ADDENDUM: LOCAL TITLE: Addendum STANDARD TITLE: ADDENDUM DATE OF NOTE: AUG 02, 2024@16:54:29 ENTRY DATE: AUG 02, 2024@16:54:30 AUTHOR: BERNARD CHAU EXP COSIGNER: URGENCY: STATUS: COMPLETED Lab Data: CBC: WBC 4.7 10*3/uL 07/20/2024 11:18 RBC 4.86 10*6/uL 07/20/2024 11:18 HGB 12.9 L g/dL 07/20/2024 11:18 HCT 39.8 % 07/20/2024 11:18 MCV 81.9 fL 07/20/2024 11:18 MCH 26.5 L pg 07/20/2024 11:18 MCHC 32.4 L g/dL 07/20/2024 11:18 RDW 15.4 H % 07/20/2024 11:18 PLT 87 L 10*3/uL 07/20/2024 11:18 The patient did not show for his clinic appointment today in hematology. However, I was notified about a question regarding whether or not the patient could take aspirin 81 mg daily for cardiovascular secondary prevention purposes given his thrombocytopenia. Reviewed recent laboratory data from July 20, 2024 which is a platelet count of 87,000. Given his platelet count is greater than 50,000, I am not concerned about his risk of bleeding at this time on antiplatelet therapy. Okay to continue with aspirin 81 mg daily. /es/ BERNARD CHAU MD STAFF PHYSICIAN, HEMATOLOGY/ONCOLOGY Signed: 08/02/2024 16:56 Receipt Acknowledged By: 08/03/2024 15:23 /es/ AIMEE AGUILA,RN REGISTERED NURSE --- Original Document --- 05/17/24 HEMATOLOGY ONCOLOGY OUTPATIENT CONSULT STL: Hematology/Oncology Consult Note Chief Complaint: Spleenomegaly Thrombocytopenia History of Present Illness: Patient is 74-year-old gentleman with history of diabetes, obesity, long time history of pituitary adenoma 25 years ago, hypertension was referred by his PCP for evaluation for splenomegaly and thrombocytopenia. Platelets noted to be lower than normal range starting from May 27, 2022 had multiple values between ranging from normal value 103 k today( lowest). He had ultrasound abdomen done recently in March showed spleen enlargement. Patient continues to complain of exertional shortness of breath with minimal activity for many years now. He denies cough, sputum production or wheezing. He quit smoking 40 years ago. He denies any bleeding, bruises, weight loss, night sweats, poor appetite, abnormal masses, nausea, vomiting, abdominal pain or distention. He has mild lower extremity swelling. He takes insulin and Ozempic for diabetes which is controlled. His blood pressure is controlled Diagnosis: Spleenomegaly Past Medical History: 1) Asthma (SNOMED CT 272670260) 2) Gastro-esophageal reflux disease (SNOMED CT 026573082) 3) Peptic Ulcer Disease * (ICD-9-CM 533.90) 4) Hypertension (SNOMED CT 49049133) 5) Pituitary Neoplasms (ICD-9-CM 194.3) 6) Hyperlipidemia (SNOMED CT 38535322) 7) Erectile dysfunction associated with type 2 diabetes mellitus 8) Osteoarthritis of knee 9) Diabetes mellitus with neuropathy 10) Low back pain 11) Obesity 12) Patellofemoral syndrome of right knee 13) History of left total knee replacement 14) History of arthroplasty of right knee 15) Exposure to potentially hazardous substance 16) Fatty liver Home Meds: Active Outpatient Medications (including Supplies): Active Outpatient [...] REASON OR FOR TECHNICAL HELP PLEASE CALL [employer] DESK: -SPECIFIC PHONE NUMBER: ([phone]). 9) HCTZ 12.5/LISINOPRIL 20MG TAB TAKE 2 [...] ACTIVE NEEDED 22 Total Medications Allergies: TRAMADOL Social History: Patient lives alone. Independent in his ADLs and IADLs. 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 Drinks 2 beers a month. No drugs. Family history significant for mom of ovarian cancer ROS: A complete 12 point ROS was performed and negative other than as mentioned Physical Exam: Temperature: 98.6 F [37.0 C] (05/17/2024 08:37) Blood Pressure: 144/79 (05/17/2024 08:37) Pulse: 62 (05/17/2024 08:37) Respirations: 18 (05/17/2024 08:37) Pulse Oximetry: 95% (05/17/2024 08:37) weight: Measurement DT WEIGHT LB(KG)[BMI] 05/17/2024 08:37 233.1(105.73)[34*] 04/07/2024 10:01 231(104.78)[33*] 02/17/2024 12:10 227.2(103.06)[33*] Height: BSABSA: 2.23 ECOG Performance Status: [ ] ECOG 0 (fully active, no restrictions) [ ] ECOG 1 (restricted in strenuous activity only) [x ] ECOG 2 (up and about >/= 50% of waking hours) [ ] ECOG 3 (confined to bed/chair > 50% of waking hours) [ ] ECOG 4 (completely disabled; confined to bed/chair) Gen: NAD HEENT: NC/AT, PERRL Resp: CTAB CV: S1, S2, no m/r/g Abd: soft, NT/ND, BS+ Ext: mild swlling Neuro: Awake and alert, no focal deficits Lymph: no peripheral palpable adenopathy Labs: CBC: WBC 4.4 10*3/uL 04/07/2024 11:40 RBC 5.01 10*6/uL 04/07/2024 11:40 HGB 13.8 g/dL 04/07/2024 11:40 HCT 42.2 % 04/07/2024 11:40 MCV 84.2 fL 04/07/2024 11:40 MCH 27.5 pg 04/07/2024 11:40 MCHC 32.7 L g/dL 04/07/2024 11:40 RDW 13.5 % 04/07/2024 11:40 PLT 151 10*3/uL 04/07/2024 11:40 MPV 10.1 fL 04/07/2024 11:40 NEUTROPHILS, AUTO % 60 % 04/07/2024 11:40 LYMPHOCYTES, AUTO % 23 % 04/07/2024 11:40 MONOCYTES, AUTO % 10 % 04/07/2024 11:40 EOSINOPHILS, AUTO % 5 % 04/07/2024 11:40 BASOPHILS, AUTO % 1 % 04/07/2024 11:40 IMMATURE GRANS, AUTO % 0.5 % 05/29/2022 16:20 NEUTROPHILS, ABSOLUTE 2.63 10*3/uL 04/07/2024 11:40 LYMPHOCYTES, ABSOLUTE 1.02 10*3/uL 04/07/2024 11:40 MONOCYTES, ABSOLUTE 0.43 10*3/uL 04/07/2024 11:40 EOSINOPHILS, ABSOLUTE 0.20 10*3/uL 04/07/2024 11:40 BASOPHILS, ABSOLUTE 0.05 10*3/uL 04/07/2024 11:40 IMMATURE GRANS, AUTO ABS 0.04 10*3/uL 05/29/2022 16:20 IMMATURE PLT FRACTION 3.4 % 04/07/2024 11:40 TEARDROPS 1+ 04/07/2024 11:40 Comprehensive Metabolic Panel Results: SODIUM 140 mEq/L 03/06/2024 09:52 POTASSIUM 4.3 mEq/L 03/06/2024 09:52 CHLORIDE 109 H mEq/L 03/06/2024 09:52 UREA NITROGEN 14.7 mg/dL 03/06/2024 09:52 CREATININE 0.87 mg/dL 03/06/2024 09:52 CALCIUM 9.1 mg/dL 03/06/2024 09:52 PROTEIN 7.1 g/dL 03/06/2024 09:52 ALBUMIN 3.8 g/dL 03/06/2024 09:52 ALKALINE PHOSPHATASE 82 U/L 03/06/2024 09:52 ALT/SGPT 45 H U/L 03/06/2024 09:52 AST/SGOT 47 H U/L 03/06/2024 09:52 TOTAL BILIRUBIN 0.6 mg/dL 03/06/2024 09:52 CARBON DIOXIDE 22 mEq/L 03/06/2024 09:52 GLUCOSE 128 H mg/dL 03/06/2024 09:52 EGFR (CKD-EPI 2020) 92.3 03/06/2024 09:52 No LDH EO data found Heme labs: Pathology: Imaging: March Impression: 1. The liver displays slightly increased echotexture with is nonspecific but can be seen with fatty infiltration. 2. Splenomegaly measuring 15.6 cm in length. Impression and Plan: #Splenomegaly # thrombocytopenia Patient has thrombocytopenia, mild. presented since May 27, 2022. Normal hemoglobin and WBC/differential. Of note CBC in April 07 smear noted 1+ teardrops, was not seen today. Thrombocytopenia thought to be related to splenomegaly. Ultrasound of the liver showed slightly increased echotexture with is nonspecific but can be seen with fatty infiltration. Patient has mild abnormal LFTs. He is at increased risk for MAFLD given obesity and diabetes. Enlarged spleen might be related to liver disease. However other etiologies are on the differential including lymphoma, bone marrow diseases, or others. Basic viral workup was done including HIV and hepatitis-C were negative. We will defer H pylori testing for now as he might require EGD in the future if evidence of liver disease. - we will obtain high-resolution CT chest and CT abdomen and pelvis with contrast -repeat laboratory testing including JAK2. CBC showed decreased platelets with normal hemoglobin and WBC # cancer screening Discussed with the patient colonoscopy screening given his age, however decline because he does not want to know if he has cancer. He is aware that by doing CT scans, there is a possibility of finding cancer /shen/ JOHANA REDDY [facility] fellow Signed: 05/17/2024 12:42 /shen/ BERNARD CHAU MD STAFF PHYSICIAN, HEMATOLOGY/ONCOLOGY Cosigned: 05/17/2024 16:58 05/17/2024 ADDENDUM STATUS: COMPLETED I have seen and examined this patient with the fellow and was directly involved in making diagnostic and treatment decisions. I have reviewed and agree with the fellow's written documentation. In brief, assessment and plan, this is a 74-year-old male with incidentally detected splenomegaly after evaluation for thrombocytopenia. We are asked to consult to assist with work-up. Preliminary work-up for thrombocytopenia includes nonreactive HIV and hepatitis C. Splenomegaly as detailed above. History of longstanding mild elevation of AST and ALT. Remaining cell lines including hemoglobin and WBC are unremarkable. Discussed the following considerations with the patient: 1. Laboratory data today to include repeat CBC which showed persistent thrombocytopenia with a platelet count of 103,000, Sammy 2 mutation which is pending, LDH and haptoglobin to screen for chronic hemolysis, and GGT. 2. To obtain CTA chest abdomen and pelvis. The rationale for including the chest high resolution is given the patient's longstanding history of debilitating shortness of breath. He has had extensive pulmonary and cardiology work-up otherwise but does not believe that he has had a CT scan. Abdomen and pelvis will evaluate the spleen for any evidence of space-occupying lesion, evaluate for lymphadenopathy that could suggest an underlying lymphoma, and evaluate for liver disease. Based on these findings, can consider additional hepatic work-up such as a FibroScan. 3. I also discussed routine cancer screening with the patient including colonoscopy. The patient stated that he did not want a colonoscopy because he does not want to know if he has cancer and just wants to live his life until he dies . I reviewed with the patient that of the testing we are doing today aside from a colonoscopy can be a form of detecting an underlying cancer. However the patient verbally agreed to the testing above and understands that this may lead to a diagnosis of cancer. He continue to refrain from wanting colonoscopy. Return to clinic after above testing to discuss /shen/ BERNARD CHAU MD STAFF PHYSICIAN, HEMATOLOGY/ONCOLOGY Signed: 05/17/2024 17:01 06/07/2024 ADDENDUM STATUS: COMPLETED Noted work up for thrombocytopenia and possible contraindication to ASA 81 mgs for HF and possible. CAD.. I ordered and placed on hold pending input from hemo.. Please call ext [phone] /shen/ Mary Son DNP, MSN, MEDIA SERVICES SPECIALIST- ADVANCED PRACTICE NURSE Signed: 06/07/2024 14:07 Receipt Acknowledged By: 08/02/2024 16:54 /shen/ BERNARD CHAU MD STAFF PHYSICIAN, HEMATOLOGY/ONCOLOGY 06/12/2024 ADDENDUM STATUS: COMPLETED CT ABDOMEN AND PELVIS W/CONTRAST INDICATION: Shortness of breath TECHNIQUE: CT chest, abdomen and pelvis with intravenous contrast. FINDINGS: Lung, Airway, Pleura: Patent central airways. No pleural effusion or pneumothorax. No pulmonary consolidation. No suspicious pulmonary nodule or mass. A 5 mm subsolid nodule in the right middle lobe (4:334 and 7:37) and a 4 mm subsolid nodule in the left lower lobe (4:219). Bilaterally scattered predominately bilateral lower lobe subpleural reticulations/reticulonodular opacities and dependent atelectasis, may represent mild/early [...] Bilaterally scattered predominately bilateral lower lobe subpleural reticulations/reticulonodular opacities and dependent atelectasis, may represent mild/early [...] suggested. Primary Interpreting Staff: LISHA BRYANT, RADIOLOGIST (Oyster Washer) / /shen/ KALIA AGUILAN,RN REGISTERED NURSE Signed: 06/12/2024 10:59 JEFFREY CHAU [facility] Jun 07, 2024 02:06 PM ADDENDUM: LOCAL TITLE: Addendum STANDARD TITLE: ADDENDUM DATE OF NOTE: JUN 07, 2024@14:06:25 ENTRY DATE: JUN 07, 2024@14:06:26 AUTHOR: MARY SON EXP COSIGNER: URGENCY: STATUS: COMPLETED Noted work up for thrombocytopenia and possible contraindication to ASA 81 mgs for HF and possible. CAD.. I ordered and placed on hold pending input from hemo.. Please call ext [phone] /shen/ Mary Son DNP, MSN, MEDIA SERVICES SPECIALIST-BC ADVANCED PRACTICE NURSE Signed: 06/07/2024 14:07 Receipt Acknowledged By: 08/02/2024 16:54 /shen/ BERNARD CHAU MD STAFF PHYSICIAN, HEMATOLOGY/ONCOLOGY --- Original Document --- 05/17/24 HEMATOLOGY ONCOLOGY OUTPATIENT CONSULT STL: Hematology/Oncology Consult Note Chief Complaint: Spleenomegaly Thrombocytopenia History of Present Illness: Patient is 74-year-old gentleman with history of diabetes, obesity, long time history of pituitary adenoma 25 years ago, hypertension was referred by his PCP for evaluation for splenomegaly and thrombocytopenia. Platelets noted to be lower than normal range starting from May 27, 2022 had multiple values between ranging from normal value 103 k today( lowest). He had ultrasound abdomen done recently in March showed spleen enlargement. Patient continues to complain of exertional shortness of breath with minimal activity for many years now. He denies cough, sputum production or wheezing. He quit smoking 40 years ago. He denies any bleeding, bruises, weight loss, night sweats, poor appetite, abnormal masses, nausea, vomiting, abdominal pain or distention. He has mild lower extremity swelling. He takes insulin and Ozempic for diabetes which is controlled. His blood pressure is controlled Diagnosis: Spleenomegaly Past Medical History: 1) Asthma (SNOMED CT 433082043) 2) Gastro-esophageal reflux disease (SNOMED CT 923469691) 3) Peptic Ulcer Disease * (ICD-9-CM 533.90) 4) Hypertension (SNOMED CT 84919317) 5) Pituitary Neoplasms (ICD-9-CM 194.3) 6) Hyperlipidemia (SNOMED CT 04604680) 7) Erectile dysfunction associated with type 2 diabetes mellitus 8) Osteoarthritis of knee 9) Diabetes mellitus with neuropathy 10) Low back pain 11) Obesity 12) Patellofemoral syndrome of right knee 13) History of left total knee replacement 14) History of arthroplasty of right knee 15) Exposure to potentially hazardous substance 16) Fatty liver Home Meds: Active Outpatient Medications (including Supplies): Active Outpatient [...] NOT ABRUPTLY DISCONTINUE MEDICATION. 8) GLUCOSE SENSOR [employer] RADHIKA 3 USE SENSOR EVERY ACTIVE 2 WEEKS FOR BLOOD SUGAR MONITORING CHANGE SENSOR/SITE EVERY 14 DAYS. TO REPLACE SENSOR FOR ANY REASON OR FOR TECHNICAL HELP PLEASE CALL [employer] DESK: -SPECIFIC PHONE NUMBER: ([phone]). 9) HCTZ 12.5/LISINOPRIL 20MG TAB TAKE 2 [...] ACTIVE NEEDED 22 Total Medications Allergies: TRAMADOL Social History: Patient lives alone. Independent in his ADLs and IADLs. 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 Drinks 2 beers a month. No drugs. Family history significant for mom of ovarian cancer ROS: A complete 12 point ROS was performed and negative other than as mentioned Physical Exam: Temperature: 98.6 F [37.0 C] (05/17/2024 08:37) Blood Pressure: 144/79 (05/17/2024 08:37) Pulse: 62 (05/17/2024 08:37) Respirations: 18 (05/17/2024 08:37) Pulse Oximetry: 95% (05/17/2024 08:37) weight: Measurement DT WEIGHT LB(KG)[BMI] 05/17/2024 08:37 233.1(105.73)[34*] 04/07/2024 10:01 231(104.78)[33*] 02/17/2024 12:10 227.2(103.06)[33*] Height: BSABSA: 2.23 ECOG Performance Status: [ ] ECOG 0 (fully active, no restrictions) [ ] ECOG 1 (restricted in strenuous activity only) [x ] ECOG 2 (up and about >/= 50% of waking hours) [ ] ECOG 3 (confined to bed/chair > 50% of waking hours) [ ] ECOG 4 (completely disabled; confined to bed/chair) Gen: NAD HEENT: NC/AT, PERRL Resp: CTAB CV: S1, S2, no m/r/g Abd: soft, NT/ND, BS+ Ext: mild swlling Neuro: Awake and alert, no focal deficits Lymph: no peripheral palpable adenopathy Labs: CBC: WBC 4.4 10*3/uL 04/07/2024 11:40 RBC 5.01 10*6/uL 04/07/2024 11:40 HGB 13.8 g/dL 04/07/2024 11:40 HCT 42.2 % 04/07/2024 11:40 MCV 84.2 fL 04/07/2024 11:40 MCH 27.5 pg 04/07/2024 11:40 MCHC 32.7 L g/dL 04/07/2024 11:40 RDW 13.5 % 04/07/2024 11:40 PLT 151 10*3/uL 04/07/2024 11:40 MPV 10.1 fL 04/07/2024 11:40 NEUTROPHILS, AUTO % 60 % 04/07/2024 11:40 LYMPHOCYTES, AUTO % 23 % 04/07/2024 11:40 MONOCYTES, AUTO % 10 % 04/07/2024 11:40 EOSINOPHILS, AUTO % 5 % 04/07/2024 11:40 BASOPHILS, AUTO % 1 % 04/07/2024 11:40 IMMATURE GRANS, AUTO % 0.5 % 05/29/2022 16:20 NEUTROPHILS, ABSOLUTE 2.63 10*3/uL 04/07/2024 11:40 LYMPHOCYTES, ABSOLUTE 1.02 10*3/uL 04/07/2024 11:40 MONOCYTES, ABSOLUTE 0.43 10*3/uL 04/07/2024 11:40 EOSINOPHILS, ABSOLUTE 0.20 10*3/uL 04/07/2024 11:40 BASOPHILS, ABSOLUTE 0.05 10*3/uL 04/07/2024 11:40 IMMATURE GRANS, AUTO ABS 0.04 10*3/uL 05/29/2022 16:20 IMMATURE PLT FRACTION 3.4 % 04/07/2024 11:40 TEARDROPS 1+ 04/07/2024 11:40 Comprehensive Metabolic Panel Results: SODIUM 140 mEq/L 03/06/2024 09:52 POTASSIUM 4.3 mEq/L 03/06/2024 09:52 CHLORIDE 109 H mEq/L 03/06/2024 09:52 UREA NITROGEN 14.7 mg/dL 03/06/2024 09:52 CREATININE 0.87 mg/dL 03/06/2024 09:52 CALCIUM 9.1 mg/dL 03/06/2024 09:52 PROTEIN 7.1 g/dL 03/06/2024 09:52 ALBUMIN 3.8 g/dL 03/06/2024 09:52 ALKALINE PHOSPHATASE 82 U/L 03/06/2024 09:52 ALT/SGPT 45 H U/L 03/06/2024 09:52 AST/SGOT 47 H U/L 03/06/2024 09:52 TOTAL BILIRUBIN 0.6 mg/dL 03/06/2024 09:52 CARBON DIOXIDE 22 mEq/L 03/06/2024 09:52 GLUCOSE 128 H mg/dL 03/06/2024 09:52 EGFR (CKD-EPI 2020) 92.3 03/06/2024 09:52 No LDH EO data found Heme labs: Pathology: Imaging: March Impression: 1. The liver displays slightly increased echotexture with is nonspecific but can be seen with fatty infiltration. 2. Splenomegaly measuring 15.6 cm in length. Impression and Plan: #Splenomegaly # thrombocytopenia Patient has thrombocytopenia, mild. presented since May 27, 2022. Normal hemoglobin and WBC/differential. Of note CBC in April 07 smear noted 1+ teardrops, was not seen today. Thrombocytopenia thought to be related to splenomegaly. Ultrasound of the liver showed slightly increased echotexture with is nonspecific but can be seen with fatty infiltration. Patient has mild abnormal LFTs. He is at increased risk for MAFLD given obesity and diabetes. Enlarged spleen might be related to liver disease. However other etiologies are on the differential including lymphoma, bone marrow diseases, or others. Basic viral workup was done including HIV and hepatitis-C were negative. We will defer H pylori testing for now as he might require EGD in the future if evidence of liver disease. - we will obtain high-resolution CT chest and CT abdomen and pelvis with contrast -repeat laboratory testing including JAK2. CBC showed decreased platelets with normal hemoglobin and WBC # cancer screening Discussed with the patient colonoscopy screening given his age, however decline because he does not want to know if he has cancer. He is aware that by doing CT scans, there is a possibility of finding cancer /shen/ JOHANA REDDY [facility] fellow Signed: 05/17/2024 12:42 /shen/ BERNARD CHAU MD STAFF PHYSICIAN, HEMATOLOGY/ONCOLOGY Cosigned: 05/17/2024 16:58 05/17/2024 ADDENDUM STATUS: COMPLETED I have seen and examined this patient with the fellow and was directly involved in making diagnostic and treatment decisions. I have reviewed and agree with the fellow's written documentation. In brief, assessment and plan, this is a 74-year-old male with incidentally detected splenomegaly after evaluation for thrombocytopenia. We are asked to consult to assist with work-up. Preliminary work-up for thrombocytopenia includes nonreactive HIV and hepatitis C. Splenomegaly as detailed above. History of longstanding mild elevation of AST and ALT. Remaining cell lines including hemoglobin and WBC are unremarkable. Discussed the following considerations with the patient: 1. Laboratory data today to include repeat CBC which showed persistent thrombocytopenia with a platelet count of 103,000, Sammy 2 mutation which is pending, LDH and haptoglobin to screen for chronic hemolysis, and GGT. 2. To obtain CTA chest abdomen and pelvis. The rationale for including the chest high resolution is given the patient's longstanding history of debilitating shortness of breath. He has had extensive pulmonary and cardiology work-up otherwise but does not believe that he has had a CT scan. Abdomen and pelvis will evaluate the spleen for any evidence of space-occupying lesion, evaluate for lymphadenopathy that could suggest an underlying lymphoma, and evaluate for liver disease. Based on these findings, can consider additional hepatic work-up such as a FibroScan. 3. I also discussed routine cancer screening with the patient including colonoscopy. The patient stated that he did not want a colonoscopy because he does not want to know if he has cancer and just wants to live his life until he dies . I reviewed with the patient that of the testing we are doing today aside from a colonoscopy can be a form of detecting an underlying cancer. However the patient verbally agreed to the testing above and understands that this may lead to a diagnosis of cancer. He continue to refrain from wanting colonoscopy. Return to clinic after above testing to discuss /shen/ BERNARD CHAU MD STAFF PHYSICIAN, HEMATOLOGY/ONCOLOGY Signed: 05/17/2024 17:01 06/12/2024 ADDENDUM STATUS: COMPLETED CT ABDOMEN AND PELVIS W/CONTRAST INDICATION: Shortness of breath TECHNIQUE: CT chest, abdomen and pelvis with intravenous contrast. FINDINGS: Lung, Airway, Pleura: Patent central airways. No pleural effusion or pneumothorax. No pulmonary consolidation. No suspicious pulmonary nodule or mass. A 5 mm subsolid nodule in the right middle lobe (4:334 and 7:37) and a 4 mm subsolid nodule in the left lower lobe (4:219). Bilaterally scattered predominately bilateral lower lobe subpleural reticulations/reticulonodular opacities and dependent atelectasis, may represent mild/early [...] Bilaterally scattered predominately bilateral lower lobe subpleural reticulations/reticulonodular opacities and dependent atelectasis, may represent mild/early [...] suggested. Primary Interpreting Staff: LISHA BRYANT, RADIOLOGIST (Oyster Washer) / /shen/ KALIA AGUILAN,RN REGISTERED NURSE Signed: 06/12/2024 10:59 MARY SON [facility] May 17, 2024 09:36 AM HEMATOLOGY AND ONCOLOGY CONSULT: LOCAL TITLE: HEMATOLOGY ONCOLOGY OUTPATIENT CONSULT [facility] STANDARD TITLE: HEMATOLOGY AND ONCOLOGY CONSULT DATE OF NOTE: MAY 17, 2024@09:36 ENTRY DATE: MAY 17, 2024@09:37:13 AUTHOR: JOHANA REDDY EXP COSIGNER: BERNARD CHAU URGENCY: STATUS: COMPLETED HEMATOLOGY ONCOLOGY OUTPATIENT CONSULT STL Has ADDENDA Hematology/Oncology Consult Note Chief Complaint: Spleenomegaly Thrombocytopenia History of Present Illness: Patient is 74-year-old gentleman with history of diabetes, obesity, long time history of pituitary adenoma 25 years ago, hypertension was referred by his PCP for evaluation for splenomegaly and thrombocytopenia. Platelets noted to be lower than normal range starting from May 27, 2022 had multiple values between ranging from normal value 103 k today( lowest). He had ultrasound abdomen done recently in March showed spleen enlargement. Patient continues to complain of exertional shortness of breath with minimal activity for many years now. He denies cough, sputum production or wheezing. He quit smoking 40 years ago. He denies any bleeding, bruises, weight loss, night sweats, poor appetite, abnormal masses, nausea, vomiting, abdominal pain or distention. He has mild lower extremity swelling. He takes insulin and Ozempic for diabetes which is controlled. His blood pressure is controlled Diagnosis: Spleenomegaly Past Medical History: 1) Asthma (SNOMED CT 696187048) 2) Gastro-esophageal reflux disease (SNOMED CT 990821275) 3) Peptic Ulcer Disease * (ICD-9-CM 533.90) 4) Hypertension (SNOMED CT 05809954) 5) Pituitary Neoplasms (ICD-9-CM 194.3) 6) Hyperlipidemia (SNOMED CT 39675164) 7) Erectile dysfunction associated with type 2 diabetes mellitus 8) Osteoarthritis of knee 9) Diabetes mellitus with neuropathy 10) Low back pain 11) Obesity 12) Patellofemoral syndrome of right knee 13) History of left total knee replacement 14) History of arthroplasty of right knee 15) Exposure to potentially hazardous substance 16) Fatty liver Home Meds: Active Outpatient Medications (including Supplies): Active Outpatient [...] NOT ABRUPTLY DISCONTINUE MEDICATION. 8) GLUCOSE SENSOR [employer] 3 USE SENSOR EVERY ACTIVE 2 WEEKS FOR BLOOD SUGAR MONITORING CHANGE SENSOR/SITE EVERY 14 DAYS. TO REPLACE SENSOR FOR ANY REASON OR FOR TECHNICAL HELP PLEASE CALL [employer] HELP DESK: -SPECIFIC PHONE NUMBER: [phone]). 9) HCTZ 12.5/LISINOPRIL 20MG TAB TAKE 2 [...] ACTIVE NEEDED 22 Total Medications Allergies: TRAMADOL Social History: Patient lives alone. Independent in his ADLs and IADLs. 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 Drinks 2 beers a month. No drugs. Family history significant for mom of ovarian cancer ROS: A complete 12 point ROS was performed and negative other than as mentioned Physical Exam: Temperature: 98.6 F [37.0 C] (05/17/2024 08:37) Blood Pressure: 144/79 (05/17/2024 08:37) Pulse: 62 (05/17/2024 08:37) Respirations: 18 (05/17/2024 08:37) Pulse Oximetry: 95% (05/17/2024 08:37) weight: Measurement DT WEIGHT LB(KG)[BMI] 05/17/2024 08:37 233.1(105.73)[34*] 04/07/2024 10:01 231(104.78)[33*] 02/17/2024 12:10 227.2(103.06)[33*] Height: BSABSA: 2.23 ECOG Performance Status: [ ] ECOG 0 (fully active, no restrictions) [ ] ECOG 1 (restricted in strenuous activity only) [x ] ECOG 2 (up and about >/= 50% of waking hours) [ ] ECOG 3 (confined to bed/chair > 50% of waking hours) [ ] ECOG 4 (completely disabled; confined to bed/chair) Gen: NAD HEENT: NC/AT, PERRL Resp: CTAB CV: S1, S2, no m/r/g Abd: soft, NT/ND, BS+ Ext: mild swlling Neuro: Awake and alert, no focal deficits Lymph: no peripheral palpable adenopathy Labs: CBC: WBC 4.4 10*3/uL 04/07/2024 11:40 RBC 5.01 10*6/uL 04/07/2024 11:40 HGB 13.8 g/dL 04/07/2024 11:40 HCT 42.2 % 04/07/2024 11:40 MCV 84.2 fL 04/07/2024 11:40 MCH 27.5 pg 04/07/2024 11:40 MCHC 32.7 L g/dL 04/07/2024 11:40 RDW 13.5 % 04/07/2024 11:40 PLT 151 10*3/uL 04/07/2024 11:40 MPV 10.1 fL 04/07/2024 11:40 NEUTROPHILS, AUTO % 60 % 04/07/2024 11:40 LYMPHOCYTES, AUTO % 23 % 04/07/2024 11:40 MONOCYTES, AUTO % 10 % 04/07/2024 11:40 EOSINOPHILS, AUTO % 5 % 04/07/2024 11:40 BASOPHILS, AUTO % 1 % 04/07/2024 11:40 IMMATURE GRANS, AUTO % 0.5 % 05/29/2022 16:20 NEUTROPHILS, ABSOLUTE 2.63 10*3/uL 04/07/2024 11:40 LYMPHOCYTES, ABSOLUTE 1.02 10*3/uL 04/07/2024 11:40 MONOCYTES, ABSOLUTE 0.43 10*3/uL 04/07/2024 11:40 EOSINOPHILS, ABSOLUTE 0.20 10*3/uL 04/07/2024 11:40 BASOPHILS, ABSOLUTE 0.05 10*3/uL 04/07/2024 11:40 IMMATURE GRANS, AUTO ABS 0.04 10*3/uL 05/29/2022 16:20 IMMATURE PLT FRACTION 3.4 % 04/07/2024 11:40 TEARDROPS 1+ 04/07/2024 11:40 Comprehensive Metabolic Panel Results: SODIUM 140 mEq/L 03/06/2024 09:52 POTASSIUM 4.3 mEq/L 03/06/2024 09:52 CHLORIDE 109 H mEq/L 03/06/2024 09:52 UREA NITROGEN 14.7 mg/dL 03/06/2024 09:52 CREATININE 0.87 mg/dL 03/06/2024 09:52 CALCIUM 9.1 mg/dL 03/06/2024 09:52 PROTEIN 7.1 g/dL 03/06/2024 09:52 ALBUMIN 3.8 g/dL 03/06/2024 09:52 ALKALINE PHOSPHATASE 82 U/L 03/06/2024 09:52 ALT/SGPT 45 H U/L 03/06/2024 09:52 AST/SGOT 47 H U/L 03/06/2024 09:52 TOTAL BILIRUBIN 0.6 mg/dL 03/06/2024 09:52 CARBON DIOXIDE 22 mEq/L 03/06/2024 09:52 GLUCOSE 128 H mg/dL 03/06/2024 09:52 EGFR (CKD-EPI 2020) 92.3 03/06/2024 09:52 No LDH EO data found Heme labs: Pathology: Imaging: March Impression: 1. The liver displays slightly increased echotexture with is nonspecific but can be seen with fatty infiltration. 2. Splenomegaly measuring 15.6 cm in length. Impression and Plan: #Splenomegaly # thrombocytopenia Patient has thrombocytopenia, mild. presented since May 27, 2022. Normal hemoglobin and WBC/differential. Of note CBC in April 07 smear noted 1+ teardrops, was not seen today. Thrombocytopenia thought to be related to splenomegaly. Ultrasound of the liver showed slightly increased echotexture with is nonspecific but can be seen with fatty infiltration. Patient has mild abnormal LFTs. He is at increased risk for MAFLD given obesity and diabetes. Enlarged spleen might be related to liver disease. However other etiologies are on the differential including lymphoma, bone marrow diseases, or others. Basic viral workup was done including HIV and hepatitis-C were negative. We will defer H pylori testing for now as he might require EGD in the future if evidence of liver disease. - we will obtain high-resolution CT chest and CT abdomen and pelvis with contrast -repeat laboratory testing including JAK2. CBC showed decreased platelets with normal hemoglobin and WBC # cancer screening Discussed with the patient colonoscopy screening given his age, however decline because he does not want to know if he has cancer. He is aware that by doing CT scans, there is a possibility of finding cancer /shen/ JOHANA CERVANTESLARyanne [facility] fellow Signed: 05/17/2024 12:42 /shen/ BERNARD CHAU MD STAFF PHYSICIAN, HEMATOLOGY/ONCOLOGY Cosigned: 05/17/2024 16:58 05/17/2024 ADDENDUM STATUS: COMPLETED I have seen and examined this patient with the fellow and was directly involved in making diagnostic and treatment decisions. I have reviewed and agree with the fellow's written documentation. In brief, assessment and plan, this is a 74-year-old male with incidentally detected splenomegaly after evaluation for thrombocytopenia. We are asked to consult to assist with work-up. Preliminary work-up for thrombocytopenia includes nonreactive HIV and hepatitis C. Splenomegaly as detailed above. History of longstanding mild elevation of AST and ALT. Remaining cell lines including hemoglobin and WBC are unremarkable. Discussed the following considerations with the patient: 1. Laboratory data today to include repeat CBC which showed persistent thrombocytopenia with a platelet count of 103,000, Sammy 2 mutation which is pending, LDH and haptoglobin to screen for chronic hemolysis, and GGT. 2. To obtain CTA chest abdomen and pelvis. The rationale for including the chest high resolution is given the patient's longstanding history of debilitating shortness of breath. He has had extensive pulmonary and cardiology work-up otherwise but does not believe that he has had a CT scan. Abdomen and pelvis will evaluate the spleen for any evidence of space-occupying lesion, evaluate for lymphadenopathy that could suggest an underlying lymphoma, and evaluate for liver disease. Based on these findings, can consider additional hepatic work-up such as a FibroScan. 3. I also discussed routine cancer screening with the patient including colonoscopy. The patient stated that he did not want a colonoscopy because he does not want to know if he has cancer and just wants to live his life until he dies . I reviewed with the patient that of the testing we are doing today aside from a colonoscopy can be a form of detecting an underlying cancer. However the patient verbally agreed to the testing above and understands that this may lead to a diagnosis of cancer. He continue to refrain from wanting colonoscopy. Return to clinic after above testing to discuss /shen/ BERNARD CHAU MD STAFF PHYSICIAN, HEMATOLOGY/ONCOLOGY Signed: 05/17/2024 17:01 06/07/2024 ADDENDUM STATUS: COMPLETED Noted work up for thrombocytopenia and possible contraindication to ASA 81 mgs for HF and possible. CAD.. I ordered and placed on hold pending input from hemo.. Please call ext [phone] /shen/ Mary Son DNP, MSN, MEDIA SERVICES SPECIALIST- ADVANCED PRACTICE NURSE Signed: 06/07/2024 14:07 Receipt Acknowledged By: 08/02/2024 16:54 /shen/ BERNARD CHAU MD STAFF PHYSICIAN, HEMATOLOGY/ONCOLOGY 06/12/2024 ADDENDUM STATUS: COMPLETED CT ABDOMEN AND PELVIS W/CONTRAST INDICATION: Shortness of breath TECHNIQUE: CT chest, abdomen and pelvis with intravenous contrast. FINDINGS: Lung, Airway, Pleura: Patent central airways. No pleural effusion or pneumothorax. No pulmonary consolidation. No suspicious pulmonary nodule or mass. A 5 mm subsolid nodule in the right middle lobe (4:334 and 7:37) and a 4 mm subsolid nodule in the left lower lobe (4:219). Bilaterally scattered predominately bilateral lower lobe subpleural reticulations/reticulonodular opacities and dependent atelectasis, may represent mild/early [...] Bilaterally scattered predominately bilateral lower lobe subpleural reticulations/reticulonodular opacities and dependent atelectasis, may represent mild/early [...] suggested. Primary Interpreting Staff: LISHA BRYANT, RADIOLOGIST (Oyster Washer) /[place] /shen/ KALIA AGUILAN,RN REGISTERED NURSE Signed: 06/12/2024 10:59 08/02/2024 ADDENDUM STATUS: COMPLETED Lab Data: CBC: WBC 4.7 10*3/uL 07/20/2024 11:18 RBC 4.86 10*6/uL 07/20/2024 11:18 HGB 12.9 L g/dL 07/20/2024 11:18 HCT 39.8 % 07/20/2024 11:18 MCV 81.9 fL 07/20/2024 11:18 MCH 26.5 L pg 07/20/2024 11:18 MCHC 32.4 L g/dL 07/20/2024 11:18 RDW 15.4 H % 07/20/2024 11:18 PLT 87 L 10*3/uL 07/20/2024 11:18 The patient did not show for his clinic appointment today in hematology. However, I was notified about a question regarding whether or not the patient could take aspirin 81 mg daily for cardiovascular secondary prevention purposes given his thrombocytopenia. Reviewed recent laboratory data from July 20, 2024 which is a platelet count of 87,000. Given his platelet count is greater than 50,000, I am not concerned about his risk of bleeding at this time on antiplatelet therapy. Okay to continue with aspirin 81 mg daily. /shen/ BERNARD CHAU MD STAFF PHYSICIAN, HEMATOLOGY/ONCOLOGY Signed: 08/02/2024 16:56 Receipt Acknowledged By: * AWAITING SIGNATURE * RITA ASH NADA [facility]
--- OUTSIDE RECORDS SUMMARY | 2024-11-17 03:45 | XMS_ITS | Encounter Summary ---
Author Name [facility] Organization [facility] [place] Address [address] [place] [address] Care Team Providers Care Correction Warden Name Role Phone MANUEL THOMAS Primary Care [...] PART A Apr 08, 2017 PART A [id number] ASHLEY WALKER PATIENT Selected Encounter This section includes the information on record at MD for the Encounter. Date/Time Encounter Type Encounter Description Reason Pro vider Source May 01, 2024 01:17 PM Outpatient Encounter ADMIN PAT ACTIVTIES (MASNONCT) IHE Encounter Template Text not used by MD Plan of Treatment: Future Appointments (+ 6 [...] 20 appointments. The data comes from all [facility]. Appointment Date/Time Appointment Type Appointme nt Facility Name May 02, 2024 10:00 AM AMBULATORY - SURGERY [facility] May 04, 2024 10:30 AM AMBULATORY - REHAB MEDICIN E [facility] May 12, 2024 10:30 AM AMBULATORY - SURGERY [facility] May 17, 2024 09:00 AM AMBULATORY - MEDICINE [facility] May 18, 2024 10:30 AM AMBULATORY - REHAB MEDICIN E [facility] May 31, 2024 02:00 PM AMBULATORY - SURGERY [facility] Jun 05, 2024 08:40 AM AMBULATORY - NONE [facility] Jun 07, 2024 12:30 PM AMBULATORY - MEDICINE [facility] Jun 07, 2024 01:30 PM AMBULATORY - NONE [facility] Jun 08, 2024 10:00 AM AMBULATORY - MEDICINE [facility] Jun 09, 2024 01:00 PM AMBULATORY - SURGERY [facility] Jun 19, 2024 07:00 AM AMBULATORY - MEDICINE [facility] Jun 19, 2024 08:00 AM AMBULATORY - NONE [facility] Jun 29, 2024 10:15 AM AMBULATORY - MEDICINE [facility] Jun 29, 2024 01:00 PM AMBULATORY - SURGERY [facility] Jul 03, 2024 10:30 AM AMBULATORY - MEDICINE [facility] Jul 14, 2024 12:54 PM AMBULATORY - SURGERY [facility] Jul 20, 2024 10:00 AM AMBULATORY - MEDICINE [facility] Aug 02, 2024 09:45 AM AMBULATORY - MEDICINE [facility] Aug 24, 2024 10:00 AM AMBULATORY - MEDICINE [facility] Active, Pending, and Scheduled Orders This section includes a listing of several types of active, pending, and scheduled orders, including clinic medications orders, diagnostic test orders, procedure orders and consult orders; where the start date of the order is 45 days before the date of the Encounter or 45 days after the date of theEncounter. The data comes from all MD treatment facilities. Test Date/Time Test Type Test Details Facility Name March 20, 2024 12:36 PM Consult Order [facility] DENTAL SPEC Cons News Content Specialist's Choice [facility] April 07, 2024 12:00 AM Laboratory - Chemi stry Order OCCULT BLOOD FIT X1 SCREEN STOOL FECES [facility] Lab Results: +/- 30 days of the encounter This section includes the Chemistry and Hematology Lab Results on record with MD for the patient. Radiology Reports and Pathology Reports are provided separately, in subsequent sections. Lab Results This section contains the Chemistry/Hematology Results that were resulted 30 days before or 30 daysafter the date of the Encounter. Date/Time Source Result Type Result - Unit Interpretation Reference Range Comment May 17, 2024 10:20 AM [facility] JAK2 MUTATION (STL) Specimen Type: PLASMA Comment: A JAK2 [id number] mutation is not detected. No mutation is detected in exon 12 of JAK2. Ordering Provider: Emeli CHAU Report Released Date/Time: May 17, 2024 09:56 AM Reporting Lab: [facility] [address] [place] [phone] Performing Lab: [facility] [id number] [facility] JAK2 MUTATION (STL) NOT DETECTED NOT DETECTED May 17, 2024 10:20 AM [facility] LDH Specimen Type: PLASMA Comment: No hemolysis noted. Ordering Provider: Emeli CHAU Report Released Date/Time: May 17, 2024 09:56 AM Reporting Lab: [address] [address] Performing Lab: [address] [address] LDH 272 U/L H 125-243 May 17, 2024 10:20 AM [facility] HAPTOGLOBIN (STL) Specimen Type: PLASMA Comment: No hemolysis noted. Ordering Provider: Emeli CHAU Report Released Date/Time: May 17, 2024 09:56 AM Reporting Lab: [address] [id number] Performing Lab: [address] [phone] HAPTOGLOBIN (STL) 94 mg/dL 44-215 May 17, 2024 10:20 AM [facility] GGT GAMMA-GT Specimen Type: PLASMA Comment: No hemolysis noted. Ordering Provider: Emeli CHAU Report Released Date/Time: May 17, 2024 09:56 AM Reporting Lab: [address] [address] Performing Lab: [address] [address] GGT GAMMA-GT 81 [IU]/L H 12-64 May 17, 2024 10:20 AM [facility] COMPREHENSIVE METABOLIC PANEL Specimen Type: PLASMA Comment: No hemolysis noted. Ordering Provider: Emeli CHAU Report Released Date/Time: May 17, 2024 09:56 AM Reporting Lab: [address] [address] Performing Lab: [address] [address] CREATININE 1.05 mg/dL 0.7-1.3 UREA NITROGEN 16.4 [...] 75.4 >60 May 17, 2024 10:20 AM [facility] CBC Specimen Type: BLOOD No comment entered. Ordering Provider: Emeli CHAU Report Released Date/Time: May 17, 2024 09:56 AM Reporting Lab: [facility] [address] [facility] [address] Performing Lab: [facility] [address] [place] [phone] WBC 5.0 10*3/uL 3.6-11.2 RBC 5.01 10*6/uL [...] 10*3/uL 0.00-0.20 April 07, 2024 11:40 AM [facility] HIV COMBO FOURTH GENERATION (STL) Specimen Type: SERUM No comment entered. Ordering Provider: JAYNE OQUENDO Report Released Date/Time: April 07, 2024 10:44 AM Reporting Lab: [facility] [address] [facility] [address] Performing Lab: [facility] [address] [place] [phone] HIV COMBO FOURTH GENERATION (STL) Nonreactive Nonreactive April 07, 2024 11:40 AM [facility] PT/INR NEW (STL-MA) Specimen Type: PLASMA No comment entered. Ordering Provider: JAYNE OQUENDO Report Released Date/Time: April 07, 2024 10:44 AM Reporting Lab: [facility] [address] [place] [phone] Performing Lab: [address] [address] PROTIME 13.0 s H 9.4-12.5 INR VALUE 1.2 {INR} April 07, 2024 11:40 AM [facility] HEP C Ab HCV Ab ([facility]) Specimen Type: SERUM No comment entered. Ordering Provider: JAYNE OQUENDO Report Released Date/Time: April 07, 2024 10:44 AM Reporting Lab: [address] [address] Performing Lab: [address] [address] HEP C Ab HCV Ab ([facility]) Nonreactive Nonreactive April 07, 2024 11:40 AM [facility] LIPID PANEL ([facility]) Specimen Type: PLASMA No comment entered. Ordering Provider: JAYNE OQUENDO Report Released Date/Time: April 07, 2024 11:14 AM Reporting Lab: [facility] [address] [place] [phone] Performing Lab: [address] [address] CHOLESTEROL 180 mg/dL 0-200 TRIGLYCERIDE 145 mg/dL 0-150 CALCULATED LDL 117 mg/dL HDL(New) 34 mg/dL L >40 April 07, 2024 11:40 AM [facility] CBC Specimen Type: BLOOD Comment: No clots Ordering Provider: JAYNE OQUENDO Report Released Date/Time: April 07, 2024 10:44 AM Reporting Lab: [facility] [address] [place] [phone] Performing Lab: [address] [address] WBC 4.4 10*3/uL 3.6-11.2 RBC 5.01 10*6/uL [...] SCRNPERF YES April 07, 2024 10:01 AM [facility] GLUCOSE,BLOOD-poct (STL) Specimen Type: BLOOD Comment: Test Performed by: [id number] Meter #: [id number] Ordering Provider: MANUEL THOMAS Report Released Date/Time: April 07, 2024 02:51 PM Reporting Lab: [address] [address] Performing Lab: [place] [id number] [facility] [address] GLUCOSE,BLOOD-p oct (STL) 206 mg/dL H 72-99 Social History: Smoking Status (Most current) and Tobacco Use (All prior to encounter date) This section includes the most current, and the historical, smoking and tobacco- related health factors from the MD facility where the Encounter took place. Current Smoking Status This section includes the most current smoking, or tobacco-related health factor, from the MD facility where the Encounter took place. Date/Time Current Smoking Status Comment Facil [facility] Aug 11, 2016 10:34 AM QUIT TOBACCO >7 YEARS AGO [facility] Tobacco Use History This section includes a history of the smoking, or tobacco-related health factors, that were collected on or before the date of the Encounter. The data comes from the MD facility where the Encounter took place. Date/Time Smoking Status/Tobacco Use Comment F acility Sep 30, 2015 10:12 AM QUIT TOBACCO >7 YEARS AGO [facility] Oct 29, 2014 10:23 AM QUIT TOBACCO >7 YEARS AGO [facility] Dec 27, 2013 01:27 PM QUIT TOBACCO >7 YEARS AGO [facility] Feb 24, 2013 02:01 PM LIFETIME NON-USER OF TOBACCO [facility] Feb 11, 2009 10:09 AM QUIT TOBACCO >7 YEARS AGO [facility] Oct 06, 2006 09:30 AM CURRENT NON-TOBACC O USER-HX OF USE [facility] Oct 06, 2006 09:30 AM TOBACCO TERMINATION STAGE [facility] Advance Directives: All historical and current Section Date Range: From patient's date of to the date document was created. This section includes ALL of a patient's completed or amended MD Advance and Rescinded Directives. The entries below indicate that a directive exists for the patient, but an actual copy is not included with this document. The data comes from all MD facilities. Date Advance Directives Provider Source Jan 19, 2017 ADVANCE DIRECTIVE DISCUSSION ERICK BARDALES [facility] Encounter Notes: All associated encounter notes This section contains the clinical notes associated to the Encounter. Date/Time Encounter Note(s) Provider Source May 02, 2024 10:55 AM ADDENDUM: LOCAL TITLE: Addendum STANDARD TITLE: ADDENDUM DATE OF NOTE: MAY 02, 2024@10:55:09 ENTRY DATE: MAY 02, 2024@10:55:10 AUTHOR: CHARITY HALL EXP COSIGNER: URGENCY: STATUS: COMPLETED Echo result in [facility] Conclusion 1- Upper normal left ventricular size. Mild Left ventricular hypertrophy 2- Global systolic funtion: Overall left ventricular systolic funtion is mildly impaired with an estimated ejection fraction of 45 -50%. 3- Regional systolc function: Wall motion: Severe hypokinesis in posterior lareral cueva 4. Diatolic function: Difficult to assess diastolic function due to arrythmias (Wenckebach) 5- The left atrial size is upper normal 6- The right ventricle is moderatley enlarge. Mild right ventricular systolic dysfunction 7- Mild pulmonary hypertension with an estimated right ventricular/pulmonary artery systolic pressure of 41 mmHg 8- Aortic Valve is trileaflet and is mildly thickened. Very mild aortic stenosis 9- Mnug-ey-cfnmalzv mitral regurgitation 10- As compared to the previous echocardiogram done on 05-07-2021 there have been significant changes, now EF lower with severe posterior lateral hypokinesis, pulmonary pressures are elevated and the rhythm is no longer sinus but shows probable Eenckebach (rate 60-70 bpm) alerting PCP to review /shen/ CHARITY HALL REGISTERED NURSE Signed: 05/02/2024 11:07 Receipt Acknowledged By: 05/03/2024 12:04 /shen/ manuel thomas M.D. Staff Physician --- Original Document --- 05/01/24 CONTACT NOTE STL: Veterans name and last 4 were used to verify identity Verified Veterans telephone #/Updated telephone number in the system REASON FOR CALL: Other: Reason for call: vet called in to follow up on cardiac test results. callback # /shen/ ANGELA GUTIERREZ Signed: 05/01/2024 13:21 Receipt Acknowledged By: 05/02/2024 11:07 /camryn HALL REGISTERED NURSE * AWAITING SIGNATURE * MANUEL THOMAS DAWN M [facility] May 01, 2024 01:17 PM ADMINISTRATIVE NOT E: LOCAL TITLE: CONTACT NOTE STL STANDARD TITLE: ADMINISTRATIVE NOTE DATE OF NOTE: MAY 01, 2024@13:17 ENTRY DATE: MAY 01, 2024@13:18:04 AUTHOR: ROONEY,ANGELA R EXP COSIGNER: URGENCY: STATUS: COMPLETED CONTACT NOTE STL Has ADDENDA Veterans name and last 4 were used to verify identity Verified Veterans telephone #/Updated telephone number in the system REASON FOR CALL: Other: Reason for call: vet called in to follow up on cardiac test results. callback # /shen/ ANGELA GUTIERREZ Signed: 05/01/2024 13:21 Receipt Acknowledged By: 05/02/2024 11:07 /camryn HALL REGISTERED NURSE 05/03/2024 12:43 /camryn thomas M.D. Staff Physician 05/02/2024 ADDENDUM STATUS: COMPLETED Echo result in [facility] Conclusion 1- Upper normal left ventricular size. Mild Left ventricular hypertrophy 2- Global systolic funtion: Overall left ventricular systolic funtion is mildly impaired with an estimated ejection fraction of 45 -50%. 3- Regional systolc function: Wall motion: Severe hypokinesis in posterior lareral cueva 4. Diatolic function: Difficult to assess diastolic function due to arrythmias (Wenckebach) 5- The left atrial size is upper normal 6- The right ventricle is moderatley enlarge. Mild right ventricular systolic dysfunction 7- Mild pulmonary hypertension with an estimated right ventricular/pulmonary artery systolic pressure of 41 mmHg 8- Aortic Valve is trileaflet and is mildly thickened. Very mild aortic stenosis 9- Noyg-yq-hbunyulx mitral regurgitation 10- As compared to the previous echocardiogram done on 05-07-2021 there have been significant changes, now EF lower with severe posterior lateral hypokinesis, pulmonary pressures are elevated and the rhythm is no longer sinus but shows probable Eenckebach (rate 60-70 bpm) alerting PCP to review /camryn HALL REGISTERED NURSE Signed: 05/02/2024 11:07 Receipt Acknowledged By: 05/03/2024 12:04 /camryn thomas M.D. 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 WIll refer to cardiology to r/o ischemic causes. Patient denies any active chest pain. Patient verbalized good understanding and was agreeable to the plan /shen/ manuel thomas M.D. Staff Physician Signed: 05/03/2024 12:54 ANGELA ROONEY [facility]
--- OUTSIDE RECORDS SUMMARY | 2024-11-17 03:45 | XMS_ITS | Encounter Summary ---
Author Name [facility] Organization [facility] Address [address] [place] [address] Care Team Providers Care Reaming Machine Tender Name Role Phone MANUEL BAIRD Primary Care [...] PART A Apr 08, 2017 PART A [id number] ASHLEY FINK PATIENT Selected Encounter This section includes the information on record at [place] for the Encounter. Date/Time Encounter Type Encounter Description Reason Pro vider Source May 04, 2024 09:25 AM Outpatient Encounter ADMIN PAT ACTIVTIES (MASNONCT) IHE Encounter Template Text not used by [place] Plan of Treatment: Future Appointments (+ 6 [...] 20 appointments. The data comes from all [facility]. Appointment Date/Time Appointment Type Appointme nt Facility Name May 12, 2024 10:30 AM AMBULATORY - SURGERY [facility] May 17, 2024 09:00 AM AMBULATORY - MEDICINE [facility] May 18, 2024 10:30 AM AMBULATORY - REHAB MEDICIN E [facility] May 31, 2024 02:00 PM AMBULATORY - SURGERY [facility] Jun 05, 2024 08:40 AM AMBULATORY - NONE [facility] Jun 07, 2024 12:30 PM AMBULATORY - MEDICINE [facility] Jun 07, 2024 01:30 PM AMBULATORY - NONE [facility] Jun 08, 2024 10:00 AM AMBULATORY - MEDICINE [facility] Jun 09, 2024 01:00 PM AMBULATORY - SURGERY [facility] Jun 19, 2024 07:00 AM AMBULATORY - MEDICINE [facility] Jun 19, 2024 08:00 AM AMBULATORY - NONE [facility] Jun 29, 2024 10:15 AM AMBULATORY - MEDICINE [facility] Jun 29, 2024 01:00 PM AMBULATORY - SURGERY [facility] Jul 03, 2024 10:30 AM AMBULATORY - MEDICINE [facility] Jul 14, 2024 12:54 PM AMBULATORY - SURGERY [facility] Jul 20, 2024 10:00 AM AMBULATORY - MEDICINE [facility] Aug 02, 2024 09:45 AM AMBULATORY - MEDICINE [facility] Aug 24, 2024 10:00 AM AMBULATORY - MEDICINE [facility] Aug 24, 2024 10:30 AM AMBULATORY - MEDICINE [facility] Aug 30, 2024 09:30 AM AMBULATORY MEDICINE [facility] Active, Pending, and Scheduled Orders This section includes a listing of several types of active, pending, and scheduled orders, including clinic medications orders, diagnostic test orders, procedure orders and consult orders; where the start date of the order is 45 days before the date of the Encounter or 45 days after the date of theEncounter. The data comes from all [place] treatment facilities. Test Date/Time Test Type Test Details Facility Name March 20, 2024 12:36 PM Consult Order [facility] DENTAL SPEC Cons [facility] April 07, 2024 12:00 AM Laboratory - Chemi stry Order OCCULT BLOOD FIT X1 SCREEN STOOL FECES SP [facility] Lab Results: +/- 30 days of the encounter This section includes the Chemistry and Hematology Lab Results on record with [place] for the patient. Radiology Reports and Pathology Reports are provided separately, in subsequent sections. Lab Results This section contains the Chemistry/Hematology Results that were resulted 30 days before or 30 daysafter the date of the Encounter. Date/Time Source Result Type Result - Unit Interpretation Reference Range Comment May 17, 2024 10:20 AM [facility] JAK2 MUTATION (STL) Specimen Type: PLASMA Comment: A JAK2 [id number] mutation is not detected. No mutation is detected in exon 12 of JAK2. Ordering Provider: Emeli CHAU Report Released Date/Time: May 17, 2024 09:56 AM Reporting Lab: [facility] [address] [facility] [address] Performing Lab: [facility] [id number] [facility] JAK2 MUTATION (STL) NOT DETECTED NOT DETECTED May 17, 2024 10:20 AM [facility] HAPTOGLOBIN (STL) Specimen Type: PLASMA Comment: No hemolysis noted. Ordering Provider: Emeli CHAU Report Released Date/Time: May 17, 2024 09:56 AM Reporting Lab: [facility] [address] [facility] [facility] [address] Performing Lab: [address] [address] HAPTOGLOBIN (STL) 94 mg/dL 44-215 May 17, 2024 10:20 AM [facility] LDH Specimen Type: PLASMA Comment: No hemolysis noted. Ordering Provider: Emeli CHAU Report Released Date/Time: May 17, 2024 09:56 AM Reporting Lab: [address] [address] Performing Lab: [address] [address] LDH 272 U/L H 125-243 May 17, 2024 10:20 AM [facility] GGT GAMMA-GT Specimen Type: PLASMA Comment: No hemolysis noted. Ordering Provider: Emeli CHAU Report Released Date/Time: May 17, 2024 09:56 AM Reporting Lab: [address] [address] Performing Lab: [address] [address] GGT GAMMA-GT 81 [IU]/L H 12-64 May 17, 2024 10:20 AM [facility] COMPREHENSIVE METABOLIC PANEL Specimen Type: PLASMA Comment: No hemolysis noted. Ordering Provider: Emeli CHAU Report Released Date/Time: May 17, 2024 09:56 AM Reporting Lab: [address] [address] Performing Lab: [address] [address] CREATININE 1.05 mg/dL 0.7-1.3 UREA NITROGEN 16.4 [...] 75.4 >60 May 17, 2024 10:20 AM [facility] CBC Specimen Type: BLOOD No comment entered. Ordering Provider: Emeli CHAU Report Released Date/Time: May 17, 2024 09:56 AM Reporting Lab: [facility] [address] [facility] [address] Performing Lab: [facility] [address] [place] [address] WBC 5.0 10*3/uL 3.6-11.2 RBC 5.01 10*6/uL [...] 10*3/uL 0.00-0.20 April 07, 2024 11:40 AM [facility] HIV COMBO FOURTH GENERATION (STL) Specimen Type: SERUM No comment entered. Ordering Provider: JAYNE OQUENDO Report Released Date/Time: April 07, 2024 10:44 AM Reporting Lab: [facility] [address] [facility] [address] Performing Lab: [facility] [address] [place] [phone] HIV COMBO FOURTH GENERATION (STL) Nonreactive Nonreactive April 07, 2024 11:40 AM [facility] HEP C Ab HCV Ab (STL) Specimen Type: SERUM No comment entered. Ordering Provider: JAYNE OQUENDO Report Released Date/Time: April 07, 2024 10:44 AM Reporting Lab: [address] [address] Performing Lab: [address] [address] HEP C Ab HCV Ab ([facility]) Nonreactive Nonreactive April 07, 2024 11:40 AM [facility] PT/INR NEW ([facility]) Specimen Type: PLASMA No comment entered. Ordering Provider: JAYNE OQUENDO Report Released Date/Time: April 07, 2024 10:44 AM Reporting Lab: [address] [address] Performing Lab: [address] [address] PROTIME 13.0 s H 9.4-12.5 INR VALUE 1.2 {INR} April 07, 2024 11:40 AM [facility] LIPID PANEL ([facility]) Specimen Type: PLASMA No comment entered. Ordering Provider: JAYNE OQUENDO Report Released Date/Time: April 07, 2024 11:14 AM Reporting Lab: [facility] [address] [place] [phone] Performing Lab: [address] [address] CHOLESTEROL 180 mg/dL 0-200 TRIGLYCERIDE 145 mg/dL 0-150 CALCULATED LDL 117 mg/dL HDL(New) 34 mg/dL L >40 April 07, 2024 11:40 AM [facility] CBC Specimen Type: BLOOD Comment: No clots Ordering Provider: JAYNE OQUENDO Report Released Date/Time: April 07, 2024 10:44 AM Reporting Lab: [facility] [address] [place] [phone] Performing Lab: [address] [address] WBC 4.4 10*3/uL 3.6-11.2 RBC 5.01 10*6/uL [...] SCRNPERF YES April 07, 2024 10:01 AM [facility] GLUCOSE,BLOOD-poct (STL) Specimen Type: BLOOD Comment: Test Performed by: [id number] Meter #: [id number] Ordering Provider: MANUEL BAIRD Report Released Date/Time: April 07, 2024 02:51 PM Reporting Lab: [facility] [address] [facility] [address] Performing Lab: [place] [address] [facility] [address] GLUCOSE,BLOOD-p oct (STL) 206 mg/dL H 72-99 Social History: Smoking Status (Most current) and Tobacco Use (All prior to encounter date) This section includes the most current, and the historical, smoking and tobacco- related health factors from the [place] facility where the Encounter took place. Current Smoking Status This section includes the most current smoking, or tobacco-related health factor, from the [facility] where the Encounter took place. Date/Time Current Smoking Status Comment Radhika goins Aug 11, 2016 10:34 AM QUIT TOBACCO >7 YEARS AGO [facility] Tobacco Use History This section includes a history of the smoking, or tobacco-related health factors, that were collected on or before the date of the Encounter. The data comes from the [place] facility where the Encounter took place. Date/Time Smoking Status/Tobacco Use Comment F acility Sep 30, 2015 10:12 AM QUIT TOBACCO >7 YEARS AGO [facility] Oct 29, 2014 10:23 AM QUIT TOBACCO >7 YEARS AGO [facility] Dec 27, 2013 01:27 PM QUIT TOBACCO >7 YEARS AGO [facility] Feb 24, 2013 02:01 PM LIFETIME NON-USER OF TOBACCO [facility] Feb 11, 2009 10:09 AM QUIT TOBACCO >7 YEARS AGO [facility] Oct 06, 2006 09:30 AM CURRENT NON-TOBACC O USER-HX OF USE [facility] Oct 06, 2006 09:30 AM TOBACCO TERMINATION STAGE [facility] Advance Directives: All historical and current Section Date Range: From patient's date of to the date document was created. This section includes ALL of a patient's completed or amended [place] Advance and Rescinded Directives. The entries below indicate that a directive exists for the patient, but an actual copy is not included with this document. The data comes from all [place] facilities. Date Advance Directives Provider Source Jan 19, 2017 ADVANCE DIRECTIVE DISCUSSION ERICK BARDALES [facility] Encounter Notes: All associated encounter notes This section contains the clinical notes associated to the Encounter. Date/Time Encounter Note(s) Provider Source May 04, 2024 09:26 AM ADMINISTRATIVE NOT E: LOCAL TITLE: SCHEDULING NOTE ST STANDARD TITLE: ADMINISTRATIVE NOTE DATE OF NOTE: MAY 04, 2024@09:26 ENTRY DATE: MAY 04, 2024@09:26:33 AUTHOR: EMILIE SOUSA EXP COSIGNER: URGENCY: STATUS: COMPLETED Minimum Scheduling attempts to contact the [facility] have been made. RTC/Appt/Consult request will be discontinued after 14 days. Clinic: [facility] PACT STAR RES 4 TAMARA: Jun First Call to [facility] [facility] - unsuccessful scheduling: Apr Unable to contact [facility], letter sent: Apr Discontinue date (14 calendar days after letter is mailed): May Additional comments: LEFT VOICEMAIL. ADDITIONAL RESULTS FROM SCHEDULING ATTEMPTS: /es/ EMILIE SOUSA ADVANCED PIGMENT MIXER Signed: 05/04/2024 09:27 EMILIE SOUSA [facility] May 04, 2024 09:25 AM PHYSICIAN LETTERS: LOCAL TITLE: NO CONTACT LETTER STL STANDARD TITLE: PHYSICIAN LETTERS DATE OF NOTE: MAY 04, 2024@09:25 ENTRY DATE: MAY 04, 2024@09:25:32 AUTHOR: EMILIE SOUSA EXP COSIGNER: URGENCY: STATUS: COMPLETED [facility] [address] [place] [address] MAY 04, 2024 ABIEL FINK [address] [place], [place] [address] Dear Abiel Fink, Thank you for choosing the [facility] as your primary choice for health care. As a partner in your health care, we are attempting to contact you because we have been unsuccessful in reaching you by phone to schedule your clinic appointment. Please call us at [phone], extension [phone] to speak to us regarding making an appointment in the [facility] clinic. Your good health is important to [...] inquire about scheduling. Sincerely, EMILIE SOUSA ADVANCED PIGMENT MIXER ABIEL FINK [facility] [place] [facility]
--- OUTSIDE RECORDS SUMMARY | 2024-11-17 03:45 | XMS_ITS | Encounter Summary ---
Author Name [facility] [place] [facility] [place] Address [address] [place] [address] Care Team Providers Care Form Presser Name Role Phone MANUEL BAIRD Primary Care [...] PART A Apr 08, 2017 PART A [id number] ASHLEY WALKER PATIENT Selected Encounter This section includes the information on record at CT for the Encounter. Date/Time Encounter Type Encounter Description Reason Pro vider Source May 17, 2024 10:17 AM Outpatient Encounter GENERAL INTERNAL MEDICINE IHE Encounter Template Text not used by CT Plan of Treatment: Future Appointments (+ 6 [...] 20 appointments. The data comes from all CT treatment facilities. Appointment Date/Time Appointment Type Appointme nt Facility Name May 18, 2024 10:30 AM AMBULATORY - REHAB MEDICIN E [facility] May 31, 2024 02:00 PM AMBULATORY - SURGERY [facility] Jun 05, 2024 08:40 AM AMBULATORY - NONE [facility] Jun 07, 2024 12:30 PM AMBULATORY - MEDICINE [facility] Jun 07, 2024 01:30 PM AMBULATORY - NONE [facility] Jun 08, 2024 10:00 AM AMBULATORY - MEDICINE [facility] Jun 09, 2024 01:00 PM AMBULATORY - SURGERY [facility] Jun 19, 2024 07:00 AM AMBULATORY - MEDICINE [facility] Jun 19, 2024 08:00 AM AMBULATORY - NONE [facility] Jun 29, 2024 10:15 AM AMBULATORY - MEDICINE [facility] Jun 29, 2024 01:00 PM AMBULATORY - SURGERY [facility] Jul 03, 2024 10:30 AM AMBULATORY - MEDICINE [facility] Jul 14, 2024 12:54 PM AMBULATORY - SURGERY [facility] Jul 20, 2024 10:00 AM AMBULATORY - MEDICINE [facility] Aug 02, 2024 09:45 AM AMBULATORY - MEDICINE [facility] Aug 24, 2024 10:00 AM AMBULATORY - MEDICINE [facility] Aug 24, 2024 10:30 AM AMBULATORY - MEDICINE [facility] Aug 30, 2024 09:30 AM AMBULATORY - MEDICINE [facility] Aug 31, 2024 01:00 PM AMBULATORY - SURGERY [facility] Sep 21, 2024 01:30 PM AMBULATORY - MEDICINE [facility] Active, Pending, and Scheduled Orders This section includes a listing of several types of active, pending, and scheduled orders, including clinic medications orders, diagnostic test orders, procedure orders and consult orders; where the start date of the order is 45 days before the date of the Encounter or 45 days after the date of theEncounter. The data comes from all [place] treatment facilities. Test Date/Time Test Type Test Details Facility Name April 07, 2024 12:00 AM Laboratory - Chemi anabelley Order OCCULT BLOOD FIT X1 SCREEN STOOL FECES SP [facility] Lab Results: +/- 30 days of [...] Range Comment Jun 09, 2024 11:48 AM [facility] MICRAL/CREAT PROFILE (STL) Specimen Type: URINE No comment entered. Ordering Provider: WELLINGTON SERNA Report Released Date/Time: Jun 07, 2024 01:44 PM Reporting Lab: [facility] [address] [facility] [address] Performing Lab: [facility] [address] [facility] [address] URINE ALBUMIN (PB-STL) 167.5 mg/L uACR (STL) 103 mg/g H 0-29 CREATININE URINE/OTHERS 163.4 mg/dL 63-166 Jun 07, 2024 02:22 PM [facility] BRAIN NATRIURETIC PEPTIDE Specimen Type: PLASMA No comment entered. Ordering Provider: WELLINGTON SERNA Report Released Date/Time: Jun 07, 2024 01:32 PM Reporting Lab: [facility] [address] [facility] [address] Performing Lab: [facility] [address] [facility] [address] BRAIN NATRIURETIC PEPTIDE 198.9 pg/mL H 0-100 Jun 07, 2024 02:22 PM [facility] hsCRP Specimen Type: SERUM No comment entered. Ordering Provider: WELLINGTON SERNA Report Released Date/Time: Jun 07, 2024 01:42 PM Reporting Lab: [facility] [address] [facility] [address] Performing Lab: [place] [address] [facility] [address] hsCRP 4.65 mg/L H 0-3.1 Jun 07, 2024 02:22 PM [facility] MAGNESIUM Specimen Type: PLASMA No comment entered. Ordering Provider: WELLINGTON SERNA Report Released Date/Time: Jun 07, 2024 01:44 PM Reporting Lab: [address] [address] Performing Lab: [address] [address] MAGNESIUM 1.7 mg/dL 1.6-2.6 Jun 05, 2024 09:00 AM [facility] FSH (STL-MA) Specimen Type: SERUM Comment: Test Performed by [employer] [employer] [place], [address] [place] [address] Tommie Garcia M.D., Ph.D., Director of Laboratories , CLIA [id number] Ordering Provider: EMILIA CALHOUN Report Released Date/Time: Jun 05, 2024 08:45 AM Reporting Lab: [address] [address] Performing Lab: [facility] [id number] [place] [address] FSH (L-MA) 5.5 m[IU]/mL 1.4-12.8 Jun 05, 2024 09:00 AM [facility] LUTEINIZING HORMONE Specimen Type: SERUM Comment: Test Performed by [employer] [employer] [place], [address] [place] [address] Tommie Garcia M.D., Ph.D., Director of Laboratories , CLIA [id number] Ordering Provider: EMILIA CALHOUN Report Released Date/Time: Jun 05, 2024 08:45 AM Reporting Lab: [address] [place] [address] Performing Lab: [facility] [address] [facility] LUTEINIZING HORMONE 2.7 m[IU]/mL 1.6-15.2 Jun 05, 2024 09:00 AM [facility] PROLACTIN (STL-Eff 08/15) Specimen Type: PLASMA No comment entered. Ordering Provider: EMILIA CALHOUN Report Released Date/Time: Jun 05, 2024 08:45 AM Reporting Lab: [address] [address] Performing Lab: [address] [address] PROLACTIN (L-Eff 08/15) 41.98 ng/mL H 3.5-19.4 Jun 05, 2024 09:00 AM [facility] TSH (MA-PB) Specimen Type: SERUM No comment entered. Ordering Provider: EMILIA CALHOUN Report Released Date/Time: Jun 05, 2024 08:45 AM Reporting Lab: [address] [address] Performing Lab: [address] [address] TSH 3.510 u[IU]/mL 0.47-5 Jun 05, 2024 09:00 AM [facility] FREE T4 (MA-PB) Specimen Type: SERUM No comment entered. Ordering Provider: EMILIA CALHOUN Report Released Date/Time: Jun 05, 2024 08:45 AM Reporting Lab: [address] [address] Performing Lab: [address] [address] FREE T4 (MA-PB) 0.78 ng/mL 0.7-1.48 May 17, 2024 10:20 AM [facility] JAK2 MUTATION (STL) Specimen Type: PLASMA Comment: A JAK2 V617F mutation is not detected. No mutation is detected in exon 12 of JAK2. Ordering Provider: JONATHON CHAU Report Released Date/Time: May 17, 2024 09:56 AM Reporting Lab: [facility] [address] [facility] [address] Performing Lab: [facility] [id number] [place] [address] JAK2 MUTATION (STL) NOT DETECTED NOT DETECTED May 17, 2024 10:20 AM [facility] HAPTOGLOBIN (STL) Specimen Type: PLASMA Comment: No hemolysis noted. Ordering Provider: JONATHON CHAU Report Released Date/Time: May 17, 2024 09:56 AM Reporting Lab: [facility] [address] [place] [address] Performing Lab: [address] [address] HAPTOGLOBIN (STL) 94 mg/dL 44-215 May 17, 2024 10:20 AM [facility] LDH Specimen Type: PLASMA Comment: No hemolysis noted. Ordering Provider: JONATHON CHAU Report Released Date/Time: May 17, 2024 09:56 AM Reporting Lab: [facility] [address] [place] [address] Performing Lab: [address] [address] LDH 272 U/L H 125-243 May 17, 2024 10:20 AM [facility] GGT GAMMA-GT Specimen Type: PLASMA Comment: No hemolysis noted. Ordering Provider: JONATHON CHAU Report Released Date/Time: May 17, 2024 09:56 AM Reporting Lab: [address] [address] Performing Lab: [address] [address] GGT GAMMA-GT 81 [IU]/L H 12-64 May 17, 2024 10:20 AM [facility] COMPREHENSIVE METABOLIC PANEL Specimen Type: PLASMA Comment: No hemolysis noted. Ordering Provider: JONATHON CHAU Report Released Date/Time: May 17, 2024 09:56 AM Reporting Lab: [facility] [address] [place] [address] Performing Lab: [address] [address] CREATININE 1.05 mg/dL 0.7-1.3 UREA NITROGEN 16.4 [...] 75.4 >60 May 17, 2024 10:20 AM [facility] CBC Specimen Type: BLOOD No comment entered. Ordering Provider: JONATHON CHAU Report Released Date/Time: May 17, 2024 09:56 AM Reporting Lab: [address] [address] Performing Lab: [address] [address] WBC 5.0 10*3/uL 3.6-11.2 RBC 5.01 10*6/uL [...] 98.6 62 144/79 18 95 233.1 [address] [facility] Social History: Smoking Status (Most current) and Tobacco Use (All prior to encounter date) This section includes the most current, and the historical, smoking and tobacco- related health factors from the CT facility where the Encounter took place. Current Smoking Status This section includes the most current smoking, or tobacco-related health factor, from the CT facility where the Encounter took place. Date/Time Current Smoking Status Comment Radhika goins Aug 11, 2016 10:34 AM QUIT TOBACCO >7 YEARS AGO [facility] Tobacco Use History This section includes a history of the smoking, or tobacco-related health factors, that were collected on or before the date of the Encounter. The data comes from the CT facility where the Encounter took place. Date/Time Smoking Status/Tobacco Use Comment Juan acility Sep 30, 2015 10:12 AM QUIT TOBACCO >7 YEARS AGO [facility] Oct 29, 2014 10:23 AM QUIT TOBACCO >7 YEARS AGO [facility] Dec 27, 2013 01:27 PM QUIT TOBACCO >7 YEARS AGO [facility] Feb 24, 2013 02:01 PM LIFETIME NON-USER OF TOBACCO [facility] Feb 11, 2009 10:09 AM QUIT TOBACCO >7 YEARS AGO [facility] Oct 06, 2006 09:30 AM CURRENT NON-TOBACC O USER-HX OF USE [facility] Oct 06, 2006 09:30 AM TOBACCO TERMINATION STAGE [facility] Advance Directives: All historical and current Section Date Range: From patient's date of to the date document was created. This section includes ALL of a patient's completed or amended CT Advance and Rescinded Directives. The entries below indicate that a directive exists for the patient, but an actual copy is not included with this document. The data comes from all CT facilities. Date Advance Directives Provider Source Jan 19, 2017 ADVANCE DIRECTIVE DISCUSSION ERICK BARDALES [facility] Radiology Reports: +/- 30 days of [...] the Encounter. The data comes from all CT treatment facilities. Date/Time Radiology Report Provider Source Jun 07, 2024 02:[address] CHEST W/CONTRAS T & 3D: CHET WALKER [id number] -[id number] M Exm Date: JUN 07, 2024@14:29 Req Phys: JOHANA REDDY Loc: [facility]ONCOLOGY K[facility]I (Req'g Im Loc: [facility]-CT IMAGING Service: [facility], [facility] [address] [place] [address] (Case [id number] COMPLETE) CT THORAX, DIAGNOSTIC, W/CONTRAS(CT Detailed) CPT:21709 Contrast Media : Non-ionic Iodinated Reason for Study: Shortness of breath (Case [id number] COMPLETE) UNLISTED CT PROCEDURE (CT Detailed) CPT:33980 CPT Modifiers : 52 REDUCED SERVICES Clinical History: Responsible Attending: Dr. Orantes Attending Contact Number: [phone] Resident Contact Number: CT chest, high resolution Allergies listed in CPRS chart: TRAMADOL Creatinine: CREATININE 0.87 mg/dL 03/06/2024 09:52 /eGFR: STL EGFR (within one year). CREATININE 0.87 mg/dL (03/06/24 09:52) Wt: 233.1 lb [105.73 kg] (05/17/2024 08:37) History of: Renal failure, chronic or acute renal disease: NO Report Status: Verified Date Reported: JUN 07, 2024 Date Verified: JUN 07, 2024 Lobby Porter E-Sig:/ES/LISHA BRYANT Report: , [id number], [id number] INDICATION: Shortness of breath COMPARISON: None TECHNIQUE: [...] suggested. Primary Interpreting Staff: LISHA BRYANT, RADIOLOGIST (Lobby Porter) /LISHA AVITIA [facility] Jun 07, 2024 02:[address] ABD PEL W/CONT & 3D: CHET WALKER [id number] -1950 M Exm Date: JUN 07, 2024@14:28 Req Phys: JOHANA REDDY Loc: [facility]ONCOLOGY [facility]I (Req'g Img Loc: [facility]-CT IMAGING [facility] Service: Unknown [facility], [facility] [address] [place] [address] (Case [id number] COMPLETE) CT ABDOMEN AND PELVIS W/CONTRAST (CT Detailed) CPT:29796 Contrast Media : Non-ionic Iodinated Reason for Study: enlarged spleen (Case [id number] COMPLETE) CT 3D RENDERING W INDEPENDENT WOR(CT Detailed) CPT:88671 Clinical History: Responsible Attending: Dr. Orantes Attending Contact Number: [phone] Resident Contact Number: spleenomegally, evaluation for liver, lymphadenopathy Allergies listed in CPRS chart: TRAMADOL Creatinine:CREATININE 0.87 mg/dL 03/06/2024 09:52 /eGFR: STL EGFR (within one year). CREATININE 0.87 mg/dL (03/06/24 09:52) Wt: 233.1 lb [105.73 kg] (05/17/2024 08:37) History of: Renal failure, chronic or acute renal disease: NO Report Status: Verified Date Reported: JUN 07, 2024 Date Verified: JUN 07, 2024 Lobby Porter E-Sig:/ES/LISHA BRYANT Report: , [id number], [id number] INDICATION: Shortness of breath COMPARISON: None TECHNIQUE: [...] suggested. Primary Interpreting Staff: LISHA BRYANT, RADIOLOGIST (Lobby Porter) /LISHA AVITIA [facility] Encounter Notes: All associated encounter notes This section contains the clinical notes associated to the Encounter. Date/Time Encounter Note(s) Provider Source May 17, 2024 10:17 AM SCANNED NOTE: LOCAL TITLE: SCANNED CT MEDICAL RECORD STL STANDARD TITLE: SCANNED NOTE DATE OF NOTE: MAY 17, 2024@10:17 ENTRY DATE: JUN 29, 2024@02:42:23 AUTHOR: THANIA GARCIA V EXP COSIGNER: URGENCY: STATUS: COMPLETED VistA Imaging - Scanned Document RADIOLOGY 05/17/24 /shen/ THANIA GARCIA Signed: 06/29/2024 02:42 THANIA GARCIA V [facility] May 17, 2024 10:17 AM SCANNED NOTE: LOCAL TITLE: SCANNED CT MEDICAL RECORD STL STANDARD TITLE: SCANNED NOTE DATE OF NOTE: MAY 17, 2024@10:17 ENTRY DATE: JUN 27, 2024@18:19:06 AUTHOR: THANIA GARCIA V EXP COSIGNER: URGENCY: STATUS: COMPLETED VistA Imaging - Scanned Document RADIOLOGY 05/17/24 /camryn GARCIA Signed: 06/27/2024 18:19 THANIA GARCIA V [facility]
--- OUTSIDE RECORDS SUMMARY | 2024-11-17 03:46 | XMS_ITS | Encounter Summary ---
Author Name [facility] [place] [facility] [place] [place] [facility] [place] Address [address] [place] [address] Care Team Providers Care Retail Support Specialist Name Role Phone MANUEL THOMAS Primary Care [...] PART A Apr 08, 2017 PART A [id number] ASHLEY FINK PATIENT Selected Encounter This section includes the information on record at [place] for the Encounter. Date/Time Encounter Type Encounter Description Reason Provider Source April 07, 2024 10:15 AM OFFICE O/P EST HI 40 MIN PRIMARY CARE/MEDICINE ICD-10-CM 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 MANUEL THOMAS Nav Encounter Template Text not used by [place] Assessments - Encounter Diagnoses This section includes the primary and secondary diagnoses documented for the Encounter. Date/Time Primary/Secondary Diagnosis Diagnosis Name Provider Source April 07, 2024 11:21 AM PRIMARY Type 2 diabetes w diabetic autonomic (poly)neuropathy [facility] April 07, 2024 11:21 AM SECONDARY Dyspnea, unspecified [facility] April 07, 2024 11:21 AM SECONDARY Edema, unspecified [facility] April 07, 2024 11:21 AM SECONDARY Essential (primary) hypertension [facility] April 07, 2024 11:21 AM SECONDARY Fatty (change of) liver, not elsewhere classified [facility] April 07, 2024 11:21 AM SECONDARY Hyperlipidemia, unspecified [facility] April 07, 2024 11:21 AM SECONDARY Low back pain, unspecified [facility] April 07, 2024 11:21 AM SECONDARY Mild persistent asthma, uncomplicated [facility] April 07, 2024 11:21 AM SECONDARY Obesity, unspecified [facility] April 07, 2024 11:21 AM SECONDARY Splenomegaly, not elsewhere classified [facility] April 07, 2024 11:21 AM SECONDARY Thrombocytopenia, unspecified [facility] April 07, 2024 11:21 AM SECONDARY Unilateral post-traumatic osteoarthritis, left knee [facility] April 07, 2024 11:21 AM SECONDARY Vertebrogenic low back pain [facility] April 07, 2024 11:21 AM SECONDARY Xerosis cutis [facility] Plan of Treatment: Future Appointments (+ 6 months) and Future Tests (+/- 45 days) The Plan of Treatment section includes future care activities for the patient from all [place] [facility]. This section includes future appointments and future orders which are active, pending or scheduled. Future Appointments This section includes appointments that were scheduled to occur 6 months from the date of the Encounter, up to a maximum of 20 appointments. The data comes from all [facility]. Appointment Date/Time Appointment Type Appointme nt Facility Name Apr 11, 2024 09:30 AM AMBULATORY - REHAB MEDICIN E [facility] Apr 18, 2024 02:00 PM AMBULATORY - NONE [facility] Apr 20, 2024 10:30 AM AMBULATORY - REHAB MEDICIN E [facility] Apr 21, 2024 11:00 AM AMBULATORY - MEDICINE [facility] 2024 10:00 AM AMBULATORY - MEDICINE [facility] May 02, 2024 10:00 AM AMBULATORY - SURGERY . [facility] May 04, 2024 10:30 AM AMBULATORY - REHAB MEDICIN E [facility] May 12, 2024 10:30 AM AMBULATORY - SURGERY . [facility] May 17, 2024 09:00 AM AMBULATORY - MEDICINE [facility] May 18, 2024 10:30 AM AMBULATORY - REHAB MEDICIN E [facility] May 31, 2024 02:00 PM AMBULATORY - SURGERY . [facility] Jun 05, 2024 08:40 AM AMBULATORY - NONE [facility] Jun 07, 2024 12:30 PM AMBULATORY - MEDICINE [facility] Jun 07, 2024 01:30 PM AMBULATORY - NONE [facility] Jun 08, 2024 10:00 AM AMBULATORY - MEDICINE [facility] Jun 09, 2024 01:00 PM AMBULATORY - SURGERY [facility] Jun 19, 2024 07:00 AM AMBULATORY - MEDICINE [facility] Jun 19, 2024 08:00 AM AMBULATORY - NONE [facility] Jun 29, 2024 10:15 AM AMBULATORY - MEDICINE [facility] Jun 29, 2024 01:00 PM AMBULATORY - SURGERY [facility] Active, Pending, and Scheduled Orders This section includes a listing of several types of active, pending, and scheduled orders, including clinic medications orders, diagnostic test orders, procedure orders and consult orders; where the start date of the order is 45 days before the date of the Encounter or 45 days after the date of theEncounter. The data comes from all [place] treatment facilities. Test Date/Time Test Type Test Details Facility Name March 20, 2024 12:36 PM Consult Order [facility] DENTAL SPEC Cons Facility Environmental Technician's Choice [facility] April 07, 2024 12:00 AM Laboratory - Chemi stry Order OCCULT BLOOD FIT X1 SCREEN STOOL FECES SP [facility] Lab Results: +/- 30 days of [...] Result - Unit Interpretation Reference Range Comment April 07, 2024 11:40 AM [facility] HIV COMBO FOURTH GENERATION (STL) Specimen Type: SERUM No comment entered. Ordering Provider: JAYNE OQUENDO Report Released Date/Time: April 07, 2024 10:44 AM Reporting Lab: [facility] [address] [place] [phone] Performing Lab: [address] [id number] HIV COMBO FOURTH GENERATION (STL) Nonreactive Nonreactive April 07, 2024 11:40 AM [facility] HEP C Ab HCV Ab (L) Specimen Type: SERUM No comment entered. Ordering Provider: JAYNE OQUENDO Report Released Date/Time: April 07, 2024 10:44 AM Reporting Lab: [facility] [address] [facility] [phone] Performing Lab: [facility] [address] [place] [phone] HEP C Ab HCV Ab (L) Nonreactive Nonreactive April 07, 2024 11:40 AM [facility] PT/INR NEW (STL-MA) Specimen Type: PLASMA No comment entered. Ordering Provider: JAYNE OQUENDO Report Released Date/Time: April 07, 2024 10:44 AM Reporting Lab: [facility] [address] [place] [phone] Performing Lab: [address] [address] PROTIME 13.0 s H 9.4-12.5 INR VALUE 1.2 {INR} April 07, 2024 11:40 AM [facility] LIPID PANEL (STL) Specimen Type: PLASMA No comment entered. Ordering Provider: JAYNE OQUENDO Report Released Date/Time: April 07, 2024 11:14 AM Reporting Lab: [facility] [address] [place] [phone] Performing Lab: [address] [address] CHOLESTEROL 180 mg/dL 0-200 TRIGLYCERIDE 145 mg/dL 0-150 CALCULATED LDL 117 mg/dL HDL(New) 34 mg/dL L >40 April 07, 2024 11:40 AM [facility] CBC Specimen Type: BLOOD Comment: No clots Ordering Provider: JAYNE OQUENDO Report Released Date/Time: April 07, 2024 10:44 AM Reporting Lab: [address] [address] Performing Lab: [address] [address] WBC 4.4 10*3/uL 3.6-11.2 RBC 5.01 10*6/uL [...] SCRNPERF YES April 07, 2024 10:01 AM [facility] GLUCOSE,BLOOD-poct (STL) Specimen Type: BLOOD Comment: Test Performed by: [id number] Meter #: [id number] Ordering Provider: MANUEL THOMAS Report Released Date/Time: April 07, 2024 02:51 PM Reporting Lab: [facility] [address] [facility] [phone] Performing Lab: [facility] [address] [facility] [phone] GLUCOSE,BLOOD- poct (STL) 206 mg/dL H 72-99 Vital Signs: All taken on the encounter date This section contains inpatient and outpatient Vital Signs collected on the date of the Encounter. Date/Time Temperature Pulse Blood Pressure Respiratory Rate SP02 Pain Height Weight Body Mass Index Source April 07, 2024 10:06 AM 140/90 [facility] April 07, 2024 10:01 AM 98.8 61 150/71 16 94 0 231 33 [facility] Social History: Smoking Status (Most current) and [...] Date/Time Current Smoking Status Comment Radhika goins March 16, 2024 09:30 AM [place]-TOBACCO FORMER USER [facility] Tobacco Use History This section includes a history of the smoking, or tobacco-related health factors, that were collected on or before the date of the Encounter. The data comes from the [place] facility where the Encounter took place. Date/Time Smoking Status/Tobacco Use Comment F acility March 16, 2024 09:30 AM VA-TOBACCO QUIT 15 YRS OR MORE [facility] March 22, 2023 10:00 AM VA-TOBACCO FORMER USER [facility] March 22, 2023 10:00 AM VA-TOBACCO QUIT 15 YRS OR MORE [facility] Jan 29, 2022 03:00 PM VA-TOBACCO FORMER USER [facility] Jan 29, 2022 03:00 PM VA-TOBACCO QUIT 15 YRS OR MORE [facility] Feb 07, 2019 04:17 PM VA-TOBACCO FORMER USER [facility] Feb 07, 2019 04:17 PM VA-TOBACCO QUIT 15 YRS OR MORE [facility] March 09, 2018 12:36 PM QUIT TOBACCO >7 YEARS AGO [facility] Aug 05, 2017 02:36 PM QUIT TOBACCO >7 YEARS AGO [facility] Advance Directives: All historical and current [...] 2017 ADVANCE DIRECTIVE DISCUSSION ERICK BARDALES [facility] Radiology Reports: +/- 30 days of [...] treatment facilities. Date/Time Radiology Report Provider Source March 15, 2024 08:01 AM US ABDOMEN COMPLET E W/BLOOD FLOW DOPPLER (STL): ABIEL FINK [id number] -[id number] M Exm Date: MARCH 15, 2024@08:01 Req Phys: MANUEL THOMAS Pat Loc: [facility]-MAN PACT STAR RES 4 (Req'g Img Loc: [facility]-ULTRASOUND [facility] Service: Unknown [facility] [address] [place] [address] (Case [id number] COMPLETE) US ABDOMEN COMPLETE REDUCE SERVIC(US Detailed) CPT:94818 CPT Modifiers : 52 REDUCED SERVICES Reason for Study: thrombocytopenia, please check liver and spleen. (Case [id number] COMPLETE) US BLOOD FLOW ABD/RENAL DOPPLER ((US Detailed) CPT:94700 Clinical History: Report Status: Verified Date Reported: MARCH 15, 2024 Date Verified: MARCH 15, 2024 [place] E-Sig:/ES/YESICA LOWERY MD Report: US ABDOMEN COMPLETE REDUCE SERVICE, US BLOOD FLOW ABD/RENAL DOPPLER (COMPLETE) [id number], [id number] DATE: 03/15/2024 8:01 AM EXAM: ABDOMINAL ULTRASOUND [id number], [id number] HISTORY: thrombocytopenia, please check liver and spleen. COMPARISON: Abdominal ultrasound dated 04/23/2021. FINDINGS: The pancreas is not well visualized on this exam. The liver displays slightly increased echotexture which is nonspecific but can be seen with fatty infiltration. No discrete hepatic mass nor significant intrahepatic biliary dilation is seen. The hepatic length measures 14.4 cm. Color Doppler evaluation demonstrates hepatopetal portal venous flow. The diameter of the main portal vein measures 7 mm. Flow is documented within the hepatic veins by color Doppler imaging. The gallbladder lumen is completely anechoic. The gallbladder wall thickness is normal. No pericholecystic fluid nor sonographic Rothman's sign are noted. The common bile duct measures 2.5 mm. The renal cortical thicknesses and echogenicities are within normal limits. No contour deforming solid renal masses are identified. The renal lengths measure 9.6 x 6.35 x 4.3 centimeters on the right and 11.25 x 6.65 x 4.3 centimeters on the left. The spleen is mildly enlarged measuring 15.6 cm in length with unremarkable appearance of the parenchyma. No ascites is present. Distal abdominal aorta measures 1.6 x 2.0 cm with the mid segment measuring 1.8 x 1.5 cm and proximal segment measuring 2.5 x 2.6 cm. Impression: 1. The liver displays slightly increased echotexture with is nonspecific but can be seen with fatty infiltration. 2. Splenomegaly measuring 15.6 cm in length. IYesica, have reviewed the images and report and concur with these findings. Primary Interpreting Staff: YESICA LOWERY MD, STAFF RADIOLOGIST ([place]) Primary Interpreting Resident: Flory Guzman MD, Resident Physician /YESICA SALGUERO [facility] Encounter Notes: All associated encounter notes This section contains the clinical notes associated to the Encounter. Date/Time Encounter Note(s) Provider Source Apr 10, 2024 08:09 AM PHYSICIAN LETTERS: LOCAL TITLE: TEST RESULT GENERAL LETTER STL STANDARD TITLE: PHYSICIAN LETTERS DATE OF NOTE: APR 10, 2024@08:09 ENTRY DATE: APR 10, 2024@08:09:23 AUTHOR: JAYNE OQUENDO COSIGNER: MANUEL THOMAS URGENCY: STATUS: COMPLETED [facility] [address] [place] [address] APR 10, 2024 ABIEL FINK [address], [place] [phone] Dear Abiel Fink, I would like to update you on your recent test results. LIPID PROFILE - High cholesterol and triglycerides (lipids) are risk factors for heart disease. Your cholesterol should fall between 140 and 200, and your triglycerides levels should be less than or equal to 150. HDL is the good cholesterol and should ideally be greater than 40. LDL is the bad cholesterol and optimal levels should be less than 100 (near optimal is between 100 and 129). TRIGLYCERIDE 145 mg/dL 04/07/2024 11:40 CHOLESTEROL 180 mg/dL 04/07/2024 11:40 HDL(New) 34 L mg/dL 04/07/2024 11:40 CALCULATED LDL 117 mg/dL 04/07/2024 11:40 No DIRECT LDL EO data found The results are similar to previous values and not a clinical concern. Your good cholesterol remains a bit too low; however, it has been improving from prior checks. Please continue taking your Atorvastatin medication since that will help boost it back up. CBC - A complete blood count (CBC) gives important information about the kinds and numbers of cells in the blood, especially red blood cells, white blood cells, and platelets. HGB 13.8 g/dL 04/07/2024 11:40 HEMATOCRIT 42.2 % (04/07/24 11:40) PLT 151 10*3/uL 04/07/2024 11:40 WHITE BLOOD COUNT 4.4 10*3/uL (04/07/24 11:40) The results are similar to previous values and not a clinical concern. Your Platelet levels remain slightly low but have rebounded compared to earlier this year. We will continue to monitor. Hep C - This is important information about your exposure to infectious disease. Infection with hepatitis C can lead to liver damage. Hepatitis C has effective treatment. [facility] Hep C tests in last five years. HEP C Ab HCV Ab ([facility]) Nonreactive S/CO (04/07/24 11:40) The reading for Hep C was negative . HIV - Human immunodeficiency virus is a condition in humans in which the immune system begins to fail, leading to life-threatening opportunistic infections. HIV FOURTH GENERATION: Collection DT Specimen Test Name Result Units Ref Range 04/07/2024 11:40 SERUM HIV Combo Nonreactive S/CO Ref: Nonreactive These readings are within normal limits. PLAN Please continue your treatment as we discussed during your visit. If you have any questions please call your ed case manager. I look forward to seeing you at your next clinic appointment. Thank you for choosing the [facility] for your healthcare. FUTURE APPOINTMENTS: 04/11/2024 09:30 [facility]-PT COMPUTER SUPPORT ANALYST 2 04/19/2024 08:15 [facility]-ONCOLOGY KANDI 04/20/2024 10:30 [facility]-PHYSICAL THERAPY 3 2024 10:00 [facility]-MAN PHARM MED MGMT 05/02/2024 10:00 [facility]-PODIATRY QI 05/12/2024 10:30 [facility]-OPTOMETRY 4 10/02/2024 09:30 [facility]-MAN PACT STAR RES 2 11/21/2024 10:00 [facility]-DENTAL HYG 1 Sincerely, JAYNE Sainz MA, MD Resident Physician ABIEL FINK MA, [facility] April 07, 2024 10:14 AM PRIMARY CARE NOTE: LOCAL TITLE: PRIMARY CARE PROVIDER ESTABLISHED VISIT STL STANDARD TITLE: PRIMARY CARE NOTE DATE OF NOTE: APRIL 07, 2024@10:14 ENTRY DATE: APRIL 07, 2024@10:15:05 AUTHOR: JAYNE OQUENDO EXP COSIGNER: MANUEL THOMAS URGENCY: STATUS: COMPLETED PRIMARY CARE PROVIDER ESTABLISHED VISIT STL Has ADDENDA CC: Diabetes, Dyspnea HPI: ABIEL FINK is a 73 MALE with PMHx NAFLD, Obesity, HTN, JACQUELINE, GERD, CLBP, OA of L knee, and 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 Last seen in [place] PCP clinic on February 01. Active concerns today: #Dyspnea on Exertion: patient notes longstanding history of dyspnea with exertion as well as when bending over. Statble, without any chest pain, orthopnea, wheezing. He notes some chronic leg swelling but this has been stable and was previously attributed to peripheral neuropathy. He quit smoking in his 20s. Weight has remained high, 231 lbs today. PFTs last visit with mildly reduced FVC and DLCO (78% and 64% respectively) but normal FEV1, FEV1/FVC. # DM with Neuropathy: A1C 7% on March 06. Follows with [facility] clinical pharmacy, with current regimen Metformin 1g BID, Semaglutide 1mg weekly, Glargine 90u dialy, and Aspart 6u before dinner. Continues to have significant neuropathy in bilateral feet, currently on Lyrica and Duloxetine. Also moderate relief from taking THC gummies. BG 200s in clinic today after eating cereal for breakfast. He notes his fasting BGs at home are sometimes down to 80s in the morning, which causes malaise so he will eat food to bring it up. Chronic Problems: # Hip Pain and Leg Pain: Patient reports >5 year chronic history of low back pain for which he takes lidocaine patch, pregabalin, duloxetine. Then he had sudden addition of hip and upper thigh paresthesias in April, so he was started on methocarbamol. X-ray hips and spine in May notable for worsened DJD, so he was referred to PT and PM&R. PM&R saw him on July 08, started Meloxicam PRN and back brace. CRUZ in July were artificially elevated but appeared near normal. Spinal MRI notable for signs of cord impingement. He was referred to NSGY who recommended decompressive surgery but patient declined. PM&R discharged him in November. Recently referred to PT. Now reports hip and leg pain have significantly improved/resolved. # HTN: On HCTZ 25/Lisinopril 40. BP high today at 140/90. ROS: 10/21 systems reviewed with all negative except as noted previously in HPI Medications: Active Outpatient Medications (including Supplies): AMMONIUM LACTATE 12% CREAM APPLY LIGHTLY TO AFFECTED ACTIVE AREA(S) TWICE A DAY EXTERNAL USE ONLY. DO NOT APPLY TO RED, ITCHY, OR SORE SKIN. DEXTROSE 24GM/31GM SQUEEZE TUBE TAKE 1 TUBE BY MOUTH ACTIVE NEEDED FOR LOW BLOOD SUGAR REPEAT DOSE IF HYPOGLYCEMIA CONTINUES 15 MINUTES AFTER THE FIRST DOSE. GLUCOSE SENSOR FREESTYLE RADHIKA 3 USE SENSOR EVERY 2 ACTIVE WEEKS FOR BLOOD SUGAR MONITORING CHANGE SENSOR/SITE EVERY 14 DAYS. TO REPLACE SENSOR FOR ANY REASON OR FOR TECHNICAL HELP PLEASE CALL [employer] HELP DESK: -SPECIFIC PHONE NUMBER: ([phone]). HCTZ 12.5/LISINOPRIL 20MG TAB TAKE 2 TABLETS BY MOUTH ACTIVE EVERY MORNING TO LOWER BLOOD PRESSURE INSULIN,ASPART(EQV-NOVLG)10 0UN/ML FLXPEN INJECT 6 UNITS ACTIVE UNDER THE SKIN BEFORE SUPPER FOR DIABETES ADMINISTER 10 MINUTES BEFORE FOOD DIRECTED. REFRIGERATE UN-OPENED PENS. DISCARD CARTRIDGE 28 DAYS AFTER OPENING. INSULIN,GLARG(TOUJEO MAX) 300 UNT/ML 3ML INJECT 90 UNITS ACTIVE UNDER THE SKIN ONCE A DAY FOR DIABETES ADMINISTER AT SAME TIME EACH DAY DIRECTED. DISCARD ANY OPEN CARTRIDGE AFTER 42 DAYS. *HIGH DOSE INSULIN* LANCET,SOFTCLIX USE LANCET FOR BLOOD TEST TWICE A DAY FOR ACTIVE BLOOD SUGAR MONITORING USE DIRECTED MELOXICAM 7.5MG TAB TAKE ONE TABLET BY MOUTH ONCE A DAY ACTIVE NEEDED FOR OSTEOARTHRITIS METFORMIN HCL 500MG 24HR SA TAB TAKE TWO TABLETS BY MOUTH ACTIVE TWICE A DAY FOR BLOOD SUGAR CONTROL. TAKE WITH FOOD. AVOID ALCOHOL. DISCONTINUE BEFORE GETTING XRAY DYE. METHOCARBAMOL 500MG TAB TAKE 1 TABLET BY MOUTH TWICE DAILY ACTIVE NEEDED FOR MUSCLE SPASM MULTIVITAMIN CAP/TAB TAKE 1 TABLET BY MOUTH ONCE A DAY FOR ACTIVE NUTRITION/DIETARY SUPPLEMENTATION NEEDLE,PEN 31G,5MM USE 1 NEEDLE UNDER THE SKIN TWICE A DAY ACTIVE FOR LONG ACTING INSULIN AND MEALTIME INSULIN OMEPRAZOLE 20MG EC CAP TAKE ONE CAPSULE BY MOUTH EVERY ACTIVE (S) MORNING TO LOWER STOMACH ACID. TAKE 30 MINUTES PRIOR TO FOOD. PREGABALIN 200MG ORAL CAP TAKE ONE CAPSULE BY MOUTH TWICE ACTIVE A DAY SEMAGLUTIDE 1MG/0.75ML INJ PEN 3ML INJECT 1MG UNDER THE ACTIVE SKIN EVERY WEEK FOR DIABETES TRANSPARENT DRESSING 2 3/8IN X 2 3/4IN USE/APPLY ACTIVE DRESSING(S) TO AFFECTED AREA(S) TWO TIMES PER WEEK FOR WOUND CARE Non-VA NAPROXEN NA 220MG TAB 220MG BY MOUTH NEEDED ACTIVE Allergies: TRAMADOL PMH/PSH: 1) Asthma (SNOMED CT 961926334) 2) Gastro-esophageal reflux disease (SNOMED CT 044589855) 3) Peptic Ulcer Disease * (ICD-9-CM 533.90) 4) Hypertension (SNOMED CT 32914366) 5) Pituitary Neoplasms (ICD-9-CM 194.3) 6) Hyperlipidemia (SNOMED CT 84908490) 7) Erectile dysfunction associated with type 2 diabetes mellitus 8) Osteoarthritis of knee 9) Diabetes mellitus with neuropathy 10) Low back pain 11) Obesity 12) Patellofemoral syndrome of right knee 13) History of left total knee replacement 14) History of arthroplasty of right knee 15) Exposure to potentially hazardous substance FH: [place] SH: Served in [employer] from 1970 to 1973. Lives with son at home. Walks with cane. 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 Etoh: occasional, few drinks per year Tobacco: currently none; previous smoker (19 years ~1 ppd, from age 11 to 30). Ilicits: none Marital Status: Physical exam: VS: Pulse: 61 (04/07/2024 10:01) BP: 140/90 (04/07/2024 10:06) RESP: 16 (04/07/2024 10:01) Tmax: 98.8 F [37.1 C] (04/07/2024 10:) Weight: 231 lb [104.78 kg] (04/07/2024 10:) BMI 33.2 GEN: Elderly male in [facility], [facility]. HEENT: NCAT, MMM, PERRLA CARDIAC: 2/6 systolic murmur with Split S2, RRR, PMI non displaced LUNG: CTAB, no wheezing ABD: +BS, soft, ND/NT. Well-healed scar over L mid abdomen. EXT: Mild 1+ pitting edema in bilateral lower extremities. No clubbing NEURO: CNII-XII grossly intact. +Grossly decreased sensation to light touch over anterior thighs. Walks with cane. PSYCH: nl affect, no AVH, SI, HI SKIN: +Xerosis over bilateral elbows/extensor surfaces, R>L, improved from last visit. Erythema over bilateral lower shins and feet. Recent Labs: HGB A1C (last):HGA1C 7.0 H % 03/06/2024 09:52 LDL(DIRECT):____ HDL:30 mg/dL L (03/06/24 09:52) Cholesterol: CHOLESTEROL 161 mg/dL 03/06/2024 09:52 Triglycerides:119 mg/dL (03/06/24 09:52) PSA: PROST. SPECIFIC AG.(PB-STL) 0.919 ng/mL 03/06/2024 09:52 WBC: 4.4 10*3/uL (03/06/24 09:52) RBC: 5.19 10*6/uL (03/06/24 09:52) HGB: HGB 14.7 g/dL 03/06/2024 09:52 HCT: 43.7 % (03/06/24 09:52) PLT: PLT 110 L 10*3/uL 03/06/2024 09:52 BMP: GLU:GLUCOSE 128 H mg/dL 03/06/2024 09:52 BUN:14.7 mg/dL (03/06/24 09:52) CRE:CREATININE 0.87 mg/dL 03/06/2024 09:52 NA: SODIUM 140 mEq/L 03/06/2024 09:52 K: POTASSIUM 4.3 mEq/L 03/06/2024 09:52 CL: 109 mEq/L H (03/06/24 09:52) CO2:CARBON DIOXIDE 22 mEq/L 03/06/2024 09:52 A/P: DENISEABIEL is a 73 year old MALE [place] with: #Dyspnea #JACQUELINE #?Asthma Patient has longstanding history of SOB especially with exertion or bending down. No chest pain, worsened leg swelling, wheezing. Suspect restrictive pathology, either OHS vs worsening of known JACQUELINE - Last PFTs 2023: without obstruction Mildly reduced FVC (78%); Normal FEV1 (2.51, 84%), FEV1/FVC (77%); mildly reduced DLCO (64% compared to 72% 2020) - Last TTE 2020: hyperdynamic LVEF >70%, but no diastolic dysfunction or valvular abnormalities - continue PRN albuterol - continue CPAP --> Discussed possibly repeating TTE given systolic murmur and leg swelling, but symptoms are overall unchanged and chronic. Overall highest suspicion remains OHS. Will hold off on TTE for now, can consider again at next visit. #Thrombocytopenia #Mild Splenomegaly US Abdomen on March 15 noted mild splenomegaly of 15.6 cm. 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 Labs also notable for Plt down to 110 in 02/2024. - Thrombocytopenia possibly related to NSAID use from Meloxicam? - Referred to Hematology for further clarification # Chronic Vertebrogenic Back Pain, improved # Lumbar Spinal Stenosis # Bilateral Leg Pain, improved Hx of sciatica and chronic lower back pain, then more recent worsening pins/needles sensation over hips and anterior thighs. - 05/05/2023 X-Ray bilateral hips, sacroiliac, and L-spine: progression of multilevel intervertebral disc space height loss and endplate remodeling. Vacuum disc formation is seen at multiple levels. Multilevel facet arthropathy is redemonstrated. There is progression of narrowing of the interspinous spaces with remodeling the spinous processes. - 07/2023 ABIs negative - LS Spine MRI: multilevel DDD, facet arthropathy, Significant central canal stenosis with thecal sac impingement at L2-L3 and L4-L5. - NSGY recommended surgical decompression but patient declined - PM&R discharged in November - Currently following with PT, symptoms significantly improved - Continue with Pregabalin, Duloxetine, Lidocaine patch, Methacarbamol # T2DM with Peripheral Neuropathy Currently follows with clinical pharmacist on CGM - A1C: 7% in 02/2024 (goal 7-8% given age) - Micral/Creat ratio: 59 in 02/2024 - Foot exam today: bilateral diffuse neuropathy, callus, hammer toes and high arch. Follows with podiatry, last seen 01/2024 - Eye exam: Follows with Opto, last seen 11/2023 - Currently on semaglutide 1mg weekly, Lantus 90u daily, Metformin 1g BID, Aspart 6u with dinner - Statin: Atorva 40 daily --> Continue to follow with clinical pharmacist --> continue Semaglutide weekly for both weight and BG control, holding off on dose increase # HTN: BP elevated in clinic at 140/90 today. Patient reports history of white coat hypertension. - continue HCTZ/Lisinopril 25/40mg daily, will reassess at next visit #HLD Last lipid panel 03/2023: Trigly 140 Chol 196 HDL 31 LDL 137 - refilling atorvastatin 40mg daily --> rechecking lipid panel today #Knee Pain, improved Hx of L Knee OA. s/p bilateral TKA with subsequent PT. Follows with Ortho, last seen 11/2021. Currently denies significant knee pain. - Last X-rays of bilateral knees in 11/2021: small R joint effusion, otherwise s/p TKA - CTM # NAFLD Last LFTs in 02/2024: AST 45 ALT 47 Alk Phos 82. No alcohol use currently. - Last abdominal ultrasound 03/2024: fatty infiltration of liver - Autoimmmune, viral, hemochromatosis w/u neg - CTM #Xerosis Cutis Saw Dermatology on February 10 for dry skin on elbows who diagnosed with xerosis cutis, gave ammonia lactate cream BID. - CTM # GERD - Patient declined to wean off PPI due to persistent daily heartburn, so will continue omeprazole 20mg daily - Consider GI referral if develops other alarm symptoms # Erectile dysfunction: Uses sildenafil, but infrequent. Health Maintenance/screening: - checking Lipid panel, CBC, PT/INR, HIV, HCV today - patient again declined colonoscopy, so reordered FIT A1c: HGA1C 7.0 H % 03/06/2024 09:52 AAA US: Negative US Abd 02/2022 ASA: 50-59 ASVD >10% Colonoscopy: Due, FIT testing reordered CT low dose: N/A Depression: denies Exercise and healthy diet recommended HCV: 18-79 HEP C Ab HCV Ab (STL) Nonreactive 10/07/2018 09:50 HIV: 15-65 Statin: Atorva 40 Tobacco use: Quit ------Vaccinations------ - COVID: 01/08 Pfizer in 11/2020, 12/2020, 11/2021 + Bivalent booster 08/2022 and 12/2023 - Flu: - Tetanus: Tdap (q10y): 09/2009 ;Td: 2020 - Shingles (>60): 01/2022 and 08/2022 - PNA: PCV13 (prevnar): 07/2017 ;PPSV23 (pneumovax >65): 03/2019 RTC: 6 month(s) or sooner PRN I spent 41 minutes with this patient encounter HIV Screening (Routine): Patient has given verbal consent for HIV antibody testing, and written educational materials have been provided. An order for an HIV Antibody test has been entered - see orders tab. Avg Risk Colorectal Cancer Screen: AVERAGE RISK colorectal cancer screening is due based on information available to this clinical reminder FOBT/FIT (Fecal Immunochemical Testing) has been ordered. See order tab for details. PAVE Foot Check: A complete foot check was completed at this encounter. VISUAL INSPECTION: Includes inspection for skin breaks, deformity, erythema, trauma, pallor on elevation, dependent rubor, nail deformities, extensive callus and pitting edema. Visual exam results: Abnormal Observations: Hammertoes, Thickened toenails, Pes Cavus PEDAL PULSES: Includes palpation of dorsalis and posterior tibial pulses and signs/symptoms of vascular compromise like pain, pallor, parasthesia or paralysis. Present (even if diminished) SENSORY CHECK: Includes 10 gram Monofilament (Wat[place]-Kenton) test of sensation. Intact (Greater than or equal to 80% of sites checked) Abnormal (Less than 80% of sites checked): Abnormal (decreased or absent sensation to monofilament): HIGH-RISK: HIGH RISK INFORMATION PROVIDED: 1. Advised patient that extra depth footwear with soft molded inserts and braces may be required. 2. Advised patient not to walk barefoot. 3. Explained the importance of daily foot checks. 4. Stressed the importance of daily foot hygiene, including bathing, complete drying and thorough inspection for changes. Patient is established patient of Podiatry and/or Vascular: Last scheduled appointment: [Place data object here] Comment: January 26, 2024 /shen/ JAYNE Sainz MA, MD Resident Physician Signed: 04/07/2024 11:22 /camryn thomas M.D. Staff Physician Cosigned: 04/10/2024 11:15 04/10/2024 ADDENDUM STATUS: COMPLETED I have supervised during the patient encounter, reviewed and in general concur with assessment and plan as outlined above. Will order TTE ECHO this visit per patient request. RTC in 6 months or prn. /camryn thomas M.D. Staff Physician Signed: 04/10/2024 11:25 JAYNE OQUENDO [facility] April 07, 2024 10:02 AM NURSING NOTE: LOCAL TITLE: V15 PACT FACE TO FACE NOTE STL STANDARD TITLE: NURSING NOTE DATE OF NOTE: APRIL 07, 2024@10:02 ENTRY DATE: APRIL 07, 2024@10:02:34 AUTHOR: JOSH BARCLAY COSIGNER: URGENCY: STATUS: COMPLETED Provider Visit: Patient Identifiers : Full Name Date of Reason for visit: Established Follow-Up Mode of Arrival: Assistive Device: ambulate with cane Allergy Review: TRAMADOL Allergy list reviewed and remains current. Recent Vital Signs: Temperature: 98.8 F [37.1 C] (04/07/2024 10:01) Pulse: 61 (04/07/2024 10:01) Respiration: 16 (04/07/2024 10:01) B/P: 150/71 (04/07/2024 10:01) Pain: 0 (04/07/2024 10:01) Wt: 231 lb [104.78 kg] (04/07/2024 10:01) Ht: 70 in [177.8 cm] (11/18/2021 10:46) BMI: 33.2 POX: 94% (04/07/2024 10:01) Blood sugar glucometer readin Would you like to discuss any personal problem, family problem, alcohol use, drug use, or a mental or emotional illness? No My [facility] ([facility]), please select appointment type: Face to face: No- Are you interested in getting this done? No Contact provided Primary Care phone number and encouraged to call if any questions or concerns. Review that after hours nurse line [phone] and emergency room are available 31/05 for patient use. Contact verbalized good understanding. /shen/ JOSH BARCLAY LPN LICENSED PRACTICAL NURSE Signed: 04/07/2024 10:05 JOSH BARCLAY [facility]
--- OUTSIDE RECORDS SUMMARY | 2024-11-17 03:46 | XMS_ITS | Encounter Summary ---
Author Name [facility] [place] [facility] [place] Address [address] [place] [address] Care Team Providers Care Rod Buster Name Role Phone MANUEL BAIRD Primary Care [...] PART A Apr 08, 2017 PART A [id number] ASHLEY WALKER PATIENT Selected Encounter This section includes the information on record at [place] for the Encounter. Date/Time Encounter Type Encounter Description Reason Provider Source Apr 20, 2024 10:30 AM THERAPEUTIC EXERCISES PHYSICAL THERAPY ICD-10-CM M54.50 Low back pain, unspecified ABEBE FERRELL Nav Encounter Template Text not used by [place] Assessments - Encounter Diagnoses This section includes the primary and secondary diagnoses documented for the Encounter. Date/Time Primary/Secondary Diagnosis Diagnosis Name Provider Source Apr 20, 2024 11:46 AM PRIMARY Low back pain, unspecified ABEBE FERRELL [facility] Plan of Treatment: Future Appointments (+ 6 months) and Future Tests (+/- 45 days) The Plan of Treatment section includes future care activities for the patient from all [place] [facility]. This section includes future appointments and future orders which are active, pending or scheduled. Future Appointments This section includes appointments that were scheduled to occur 6 months from the date of the Encounter, up to a maximum of 20 appointments. The data comes from all [facility]. Appointment Date/Time Appointment Type Appointme nt Facility Name Apr 21, 2024 11:00 AM AMBULATORY - MEDICINE [facility] 2024 10:00 AM AMBULATORY - MEDICINE [facility] May 02, 2024 10:00 AM AMBULATORY - SURGERY [facility] May 04, 2024 10:30 AM AMBULATORY - REHAB MEDICIN E [facility] May 12, 2024 10:30 AM AMBULATORY - SURGERY [facility] May 17, 2024 09:00 AM AMBULATORY - MEDICINE [facility] May 18, 2024 10:30 AM AMBULATORY - REHAB MEDICIN E [facility] May 31, 2024 02:00 PM AMBULATORY - SURGERY [facility] Jun 05, 2024 08:40 AM AMBULATORY - NONE [facility] Jun 07, 2024 12:30 PM AMBULATORY - MEDICINE [facility] Jun 07, 2024 01:30 PM AMBULATORY - NONE [facility] Jun 08, 2024 10:00 AM AMBULATORY - MEDICINE [facility] Jun 09, 2024 01:00 PM AMBULATORY - SURGERY [facility] Jun 19, 2024 07:00 AM AMBULATORY - MEDICINE [facility] Jun 19, 2024 08:00 AM AM[facility]ULATORY - NONE [facility] Jun 29, 2024 10:15 AM AMBULATORY - MEDICINE [facility] Jun 29, 2024 01:00 PM AMBULATORY - SURGERY [facility] Jul 03, 2024 10:30 AM AMBULATORY - MEDICINE [facility] Jul 14, 2024 12:54 PM AMBULATORY - SURGERY [facility] Jul 20, 2024 10:00 AM AMBULATORY - MEDICINE [facility] Active, Pending, and Scheduled Orders This section includes a listing of several types of active, pending, and scheduled orders, including clinic medications orders, diagnostic test orders, procedure orders and consult orders; where the start date of the order is 45 days before the date of the Encounter or 45 days after the date of theEncounter. The data comes from all [place] treatment facilities. Test Date/Time Test Type Test Details Facility Name March 20, 2024 12:36 PM Consult Order [facility]-STL DENTAL SPEC Cons [employer] [facility] April 07, 2024 12:00 AM Laboratory - Chemi stry Order OCCULT BLOOD FIT X1 SCREEN STOOL FECES [facility] Lab Results: +/- 30 days of the encounter This section includes the Chemistry and Hematology Lab Results on record with [place] for the patient. Radiology Reports and Pathology Reports are provided separately, in subsequent sections. Lab Results This section contains the Chemistry/Hematology Results that were resulted 30 days before or 30 daysafter the date of the Encounter. Date/Time Source Result Type Result - Unit Interpretation Reference Range Comment May 17, 2024 10:20 AM [facility] JAK2 MUTATION (STL) Specimen Type: PLASMA Comment: A JAK2 [id number] mutation is not detected. No mutation is detected in exon 12 of JAK2. Ordering Provider: Emeli CHAU Report Released Date/Time: May 17, 2024 09:56 AM Reporting Lab: [facility] [address] [address] Performing Lab: [facility] [address] [place] [employer] JAK2 MUTATION (STL) NOT DETECTED NOT DETECTED May 17, 2024 10:20 AM [facility] HAPTOGLOBIN (STL) Specimen Type: PLASMA Comment: No hemolysis noted. Ordering Provider: Emeli CHAU Report Released Date/Time: May 17, 2024 09:56 AM Reporting Lab: [facility] [address] [phone] Performing Lab: [address] [address] HAPTOGLOBIN (STL) 94 mg/dL 44-215 May 17, 2024 10:20 AM [facility] LDH Specimen Type: PLASMA Comment: No hemolysis noted. Ordering Provider: Emeli CHAU Report Released Date/Time: May 17, 2024 09:56 AM Reporting Lab: [address] [phone] Performing Lab: [address] [address] LDH 272 U/L H 125-243 May 17, 2024 10:20 AM [facility] GGT GAMMA-GT Specimen Type: PLASMA Comment: No hemolysis noted. Ordering Provider: Emeli CHAU Report Released Date/Time: May 17, 2024 09:56 AM Reporting Lab: [address] [phone] Performing Lab: [address] [address] GGT GAMMA-GT 81 [IU]/L H 12-64 May 17, 2024 10:20 AM [facility] COMPREHENSIVE METABOLIC PANEL Specimen Type: PLASMA Comment: No hemolysis noted. Ordering Provider: Emeli CHAU Report Released Date/Time: May 17, 2024 09:56 AM Reporting Lab: [address] [address] Performing Lab: [address] [address] CREATININE 1.05 mg/dL 0.7-1.3 UREA NITROGEN 16.4 [...] 75.4 >60 May 17, 2024 10:20 AM [facility] CBC Specimen Type: BLOOD No comment entered. Ordering Provider: Emeli CHAU Report Released Date/Time: May 17, 2024 09:56 AM Reporting Lab: [facility] [address] [address] Performing Lab: [address] [address] WBC 5.0 10*3/uL 3.6-11.2 RBC 5.01 10*6/uL [...] 10*3/uL 0.00-0.20 April 07, 2024 11:40 AM [facility] HIV COMBO FOURTH GENERATION (STL) Specimen Type: SERUM No comment entered. Ordering Provider: JAYNE OQUENDO Report Released Date/Time: April 07, 2024 10:44 AM Reporting Lab: [facility] [address] [phone] Performing Lab: [facility] [address] [address] HIV COMBO FOURTH GENERATION (STL) Nonreactive Nonreactive April 07, 2024 11:40 AM [facility] PT/INR NEW (STL-MA) Specimen Type: PLASMA No comment entered. Ordering Provider: JAYNE OQUENDO Report Released Date/Time: April 07, 2024 10:44 AM Reporting Lab: [facility] [address] [place] [phone] Performing Lab: [facility] [address] [place] [phone] PROTIME 13.0 s H 9.4-12.5 INR VALUE 1.2 {INR} April 07, 2024 11:40 AM [facility] HEP C Ab HCV Ab (L) Specimen Type: SERUM No comment entered. Ordering Provider: JAYNE OQUENDO Report Released Date/Time: April 07, 2024 10:44 AM Reporting Lab: [facility] [address] [place] [phone] Performing Lab: [facility] [address] [place] [phone] HEP C Ab HCV Ab (L) Nonreactive Nonreactive April 07, 2024 11:40 AM [facility] LIPID PANEL (L) Specimen Type: PLASMA No comment entered. Ordering Provider: JAYNE OQUENDO Report Released Date/Time: April 07, 2024 11:14 AM Reporting Lab: [facility] [address] [place] [phone] Performing Lab: [facility] [address] [place] [phone] CHOLESTEROL 180 mg/dL 0-200 TRIGLYCERIDE 145 mg/dL 0-150 CALCULATED LDL 117 mg/dL HDL(New) 34 mg/dL L >40 April 07, 2024 11:40 AM [facility] CBC Specimen Type: BLOOD Comment: No clots Ordering Provider: JAYNE OQUENDO Report Released Date/Time: April 07, 2024 10:44 AM Reporting Lab: [facility] [address] [place] [phone] Performing Lab: [facility] [address] [facility] [address] WBC 4.4 10*3/uL 3.6-11.2 RBC 5.01 10*6/uL [...] April 07, 2024 10:01 AM [facility] GLUCOSE,BLOOD-poct (STL) Specimen Type: BLOOD Comment: Test Performed by: [id number] Meter #: [id number] Ordering Provider: MANUEL BAIRD Report Released Date/Time: April 07, 2024 02:51 PM Reporting Lab: [facility] [address] [facility] [phone] Performing Lab: [facility] [address] [facility] [address] GLUCOSE,BLOOD-p oct (STL) 206 mg/dL H 72-99 Social History: Smoking Status (Most current) and Tobacco Use (All prior to encounter date) This section includes the most current, and the historical, smoking and tobacco- related health factors from the [place] facility where the Encounter took place. Current Smoking Status This section includes the most current smoking, or tobacco-related health factor, from the [place] facility where the Encounter took place. Date/Time Current Smoking Status Comment Radhika ity Aug 11, 2016 10:34 AM QUIT TOBACCO >7 YEARS AGO [facility] Tobacco Use History This section includes a history of the smoking, or tobacco-related health factors, that were collected on or before the date of the Encounter. The data comes from the [place] facility where the Encounter took place. Date/Time Smoking Status/Tobacco Use Comment F acility Sep 30, 2015 10:12 AM QUIT TOBACCO >7 YEARS AGO [facility] Oct 29, 2014 10:23 AM QUIT TOBACCO >7 YEARS AGO [facility] Dec 27, 2013 01:27 PM QUIT TOBACCO >7 YEARS AGO [facility] Feb 24, 2013 02:01 PM LIFETIME NON-USER OF TOBACCO [facility] Feb 11, 2009 10:09 AM QUIT TOBACCO >7 YEARS AGO [facility] Oct 06, 2006 09:30 AM CURRENT NON-TOBACC O USER-HX OF USE [facility] Oct 06, 2006 09:30 AM TOBACCO TERMINATION STAGE [facility] Advance Directives: All historical and current Section Date Range: From patient's date of to the date document was created. This section includes ALL of a patient's completed or amended [place] Advance and Rescinded Directives. The entries below indicate that a directive exists for the patient, but an actual copy is not included with this document. The data comes from all [facility]. Date Advance Directives Provider Source Jan 19, 2017 ADVANCE DIRECTIVE DISCUSSION ERICK BARDALES [facility] Encounter Notes: All associated encounter notes This section contains the clinical notes associated to the Encounter. Date/Time Encounter Note(s) Provider Source Apr 20, 2024 10:52 AM PHYSICAL MEDICINE REHAB NOTE: LOCAL TITLE: PT PROGRESS STL STANDARD TITLE: PHYSICAL MEDICINE REHAB NOTE DATE OF NOTE: APR 20, 2024@10:52 ENTRY DATE: APR 20, 2024@10:52:33 AUTHOR: ABEBE FERRELL EXP COSIGNER: URGENCY: STATUS: COMPLETED lois Note Primary Therapist: Abebe Ferrell DPT Seen By: Chelsie Billings PTA Current PC Provider: MANUEL BAIRD Current PC Team: AUDREY Graham *EMELIA* Current Pat. Status: Outpatient UCID: [id number] Primary [...] To Service: PT OUTPT STL From Service: AUDREY KAUR STAR RES 4 Requesting Provider: JAYNE OQUENDO Service is to be rendered on an OUTPATIENT basis Place: [facility] Urgency: Routine Clinically Ind. 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 Therapeutic exercise: 35 mins. Self mgmt: mins. Gait: mins, Subjective: Arrives using F-22. Feels [...] Men: 10.4 Women: 9.7 Treatment: Therapeutic exercise: 30 mins. -18 min warm up on nu step L 3 -promax 3x15 sets 80 lbs -5TSTS -lateral step downs on steps 2x10 (to work on stairs strenghtening) Access Code: [email or web address] URL: [email or web address] ([email or web address])/ Date: 02/28/2024 Prepared by: Dons Exercises - Supine Bridge - 1 x [...] nerve glide, 10 reps, daily. Assessment: Patient responds well to treatment he is making gains in LE strenth. He improved his 5TSTS from 17s to 13.5s. He is happy with progress, we planned to have 2 more visits to finalize program and cont with LE strenghtening and balancel= Goals: Short term: 3-4 weeks 1) Pt. will demonstrate independence with current HEP x 1 MET 2) Pt. will report pain at worst 6/10MET 3) Pt. to demonstrate independence with proper sitting and sleeping postures MET oil heaterman: 1) Pt to demonstrate independence with final HEP x 1 CONT 2 ) Pt. to report pain at worst 5/10 CONT 3) Pt. to improve >MDC on the SPPB indicating improved balance and strength CONT /family demonstrated good understanding of education and that learning occured. Equipment: F-22 Plan: Cont. PT 1X/wk. for up to 2 more visits to work on LE strengthening and endurnace and reudcing fall risk. /shen/ ABEBE FERRELL PT, DPT, NCS Signed: 04/20/2024 11:46 ABEBE FERRELL [facility]
--- OUTSIDE RECORDS SUMMARY | 2024-11-17 03:46 | XMS_ITS | Encounter Summary ---
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 Date/Time Encounter Type Encounter Description Reason Provider Source Apr 11, 2024 09:30 AM THERAPEUTIC EXERCISES PHYSICAL THERAPY ICD-10-CM M25.569 Pain in unspecified knee ABEBE TORRES Encounter Template Text not used by [facility] Assessments - Encounter Diagnoses This section includes the primary and secondary diagnoses documented for the Encounter. Date/Time Primary/Secondary Diagnosis Diagnosis Name Provider Source Apr 11, 2024 10:05 AM PRIMARY Pain in unspecified knee CHELSIE BILLINGS [facility] Plan of Treatment: Future Appointments (+ 6 months) and Future Tests (+/- 45 days) The Plan of Treatment section includes future care activities for the [facility] This section includes future appointments and future orders which are active, pending or scheduled. Future Appointments This section includes appointments that were scheduled to occur 6 months from the date of the Encounter, up to a maximum of 20 appointments. The data comes from all [facility] Appointment Date/Time Appointment Type Appointme nt Facility Name Apr 18, 2024 02:00 PM AMBULATORY - NONE [facility] Apr 20, 2024 10:30 AM AMBULATORY - REHAB MEDICIN E [facility] Apr 21, 2024 11:00 AM AMBULATORY - MEDICINE [facility] 2024 10:00 AM AMBULATORY - MEDICINE [facility] May 02, 2024 10:00 AM AMBULATORY - SUR[facility]ERY [facility] May 04, 2024 10:30 AM AMBULATORY - REHAB MEDICIN E [facility] May 12, 2024 10:30 AM AMBULATORY - SUR[facility]ERY [facility] May 17, 2024 09:00 AM AMBULATORY - MEDICINE [facility] May 18, 2024 10:30 AM AMBULATORY - REHAB MEDICIN E [facility] May 31, 2024 02:00 PM AMBULATORY - SURGERY [facility] Jun 05, 2024 08:40 AM AMBULATORY - NONE [facility] Jun 07, 2024 12:30 PM AMBULATORY - MEDICINE [facility] Jun 07, 2024 01:30 PM AMBULATORY - NONE [facility] Jun 08, 2024 10:00 AM AMBULATORY - MEDICINE [facility] Jun 09, 2024 01:00 PM AMBULATORY - SURGERY [facility] Jun 19, 2024 07:00 AM AMBULATORY - MEDICINE [facility] Jun 19, 2024 08:00 AM AMBULATORY - NONE [facility] Jun 29, 2024 10:15 AM AMBULATORY - MEDICINE [facility] Jun 29, 2024 01:00 PM AMBULATORY - SURGERY [facility] Julián JOL[facility] Jul 03, 2024 10:30 AM AMBULATORY - MEDICINE [facility] Active, Pending, and Scheduled Orders This section includes a listing of several types of active, pending, and scheduled orders, including clinic medications orders, diagnostic test orders, procedure orders and consult orders; where the start date of the order is 45 days before the date of the Encounter or 45 days after the date of theEncounter. The data comes from all [place] treatment facilities. Test Date/Time Test Type Test Details Facility Name March 20, 2024 12:36 PM Consult Order [facility] DENTAL SPEC Cons [facility] Choice [facility] April 07, 2024 12:00 AM Laboratory - Chemi stry Order OCCULT BLOOD FIT X1 SCREEN STOOL FECES SP [facility] Lab Results: +/- 30 [...] Range Comment April 07, 2024 11:40 AM [facility] HIV COMBO FOURTH GENERATION (STL) Specimen Type: SERUM No comment entered. Ordering Provider: JAYNE OQUENDO Report Released Date/Time: April 07, 2024 10:44 AM Reporting Lab: [facility] [address] [address] Performing Lab: [facility] [address] [address] HIV COMBO FOURTH GENERATION (STL) Nonreactive Nonreactive April 07, 2024 11:40 AM [facility] PT/INR NEW (STL-MA) Specimen Type: PLASMA No comment entered. Ordering Provider: JAYNE OQUENDO Report Released Date/Time: April 07, 2024 10:44 AM Reporting Lab: [facility] [address] [address] Performing Lab: [facility] [address] [address] PROTIME 13.0 s H 9.4-12.5 INR VALUE 1.2 {INR} April 07, 2024 11:40 AM [facility] HEP C Ab HCV Ab (L) Specimen Type: SERUM No comment entered. Ordering Provider: JAYNE OQUENDO Report Released Date/Time: April 07, 2024 10:44 AM Reporting Lab: [address] [address] Performing Lab: [address] [address] HEP C Ab HCV Ab (L) Nonreactive Nonreactive April 07, 2024 11:40 AM [facility] LIPID PANEL (L) Specimen Type: PLASMA No comment entered. Ordering Provider: JAYNE OQUENDO Report Released Date/Time: April 07, 2024 11:14 AM Reporting Lab: [address] [address] Performing Lab: [address] [address] CHOLESTEROL 180 mg/dL 0-200 TRIGLYCERIDE 145 mg/dL 0-150 CALCULATED LDL 117 mg/dL HDL(New) 34 mg/dL L >40 April 07, 2024 11:40 AM [facility] CBC Specimen Type: BLOOD Comment: No clots Ordering Provider: JAYNE OQUENDO Report Released Date/Time: April 07, 2024 10:44 AM Reporting Lab: [address] [address] Performing Lab: [address] [address] WBC 4.4 10*3/uL 3.6-11.2 RBC 5.01 10*6/uL [...] SCRNPERF YES April 07, 2024 10:01 AM [facility] GLUCOSE,BLOOD-poct (STL) Specimen Type: BLOOD Comment: Test Performed by: [id number] Meter #: [id number] Ordering Provider: MANUEL BAIRD Report Released Date/Time: April 07, 2024 02:51 PM Reporting Lab: [address] [address] Performing Lab: [address] [address] GLUCOSE,BLOOD- poct (STL) 206 mg/dL H 72-99 Social History: Smoking Status (Most current) and Tobacco Use (All prior to encounter date) This section includes the most current, and the historical, smoking and tobacco- related health factors from the [facility] where the Encounter took place. Current Smoking Status This section includes the most current smoking, or tobacco-related health factor, from the [place] facility where the Encounter took place. Date/Time Current Smoking Status Comment Radhika goins Aug 11, 2016 10:34 AM QUIT TOBACCO >7 YEARS AGO [facility] Tobacco Use History This section includes a history of the smoking, or tobacco-related health factors, that were collected on or before the date of the Encounter. The data comes from the [place] facility where the Encounter took place. Date/Time Smoking Status/Tobacco Use Comment Juan acmichael Sep 30, 2015 10:12 AM QUIT TOBACCO >7 YEARS AGO [facility] Oct 29, 2014 10:23 AM QUIT TOBACCO >7 YEARS AGO [facility] Dec 27, 2013 01:27 PM QUIT TOBACCO >7 YEARS AGO [facility] Feb 24, 2013 02:01 PM LIFETIME NON-USER OF TOBACCO [facility] Feb 11, 2009 10:09 AM QUIT TOBACCO >7 YEARS AGO [facility] Oct 06, 2006 09:30 AM CURRENT NON-TOBACC O USER-HX OF USE [facility] Oct 06, 2006 09:30 AM TOBACCO TERMINATION STAGE [facility] Advance Directives: All historical and current Section [...] 2017 ADVANCE DIRECTIVE DISCUSSION ERICK BARDALES [facility] Radiology Reports: +/- 30 days of the [...] ABDOMEN COMPLET E W/BLOOD FLOW DOPPLER (STL): CHET WALKER [id number] M Exm Date: MARCH 15, 2024@08:01 Req Phys: MANUEL BAIRD Pat Loc: [facility]MAN PACT STAR RES 4 (Req'g Img Loc: [facility]-ULTRASOUND [facility] Service: Unknown [facility] [address] [place] [address] (Case [id number] COMPLETE) US ABDOMEN COMPLETE REDUCE SERVIC(US Detailed) CPT:17193 CPT Modifiers : 52 REDUCED SERVICES Reason for Study: thrombocytopenia, please check liver and spleen. (Case [id number] COMPLETE) US BLOOD FLOW ABD/RENAL DOPPLER ((US Detailed) CPT:71024 Clinical History: Report Status: Verified Date Reported: MARCH 15, 2024 Date Verified: MARCH 15, 2024 Cistern Room Working Supervisor E-Sig:/ES/YESICA LOWERY MD Report: US ABDOMEN COMPLETE REDUCE SERVICE, US BLOOD FLOW ABD/RENAL DOPPLER (COMPLETE) [id number], [id number] DATE: 03/15/2024 8:01 AM EXAM: ABDOMINAL ULTRASOUND [id number], [id number] HISTORY: thrombocytopenia, please check liver and spleen. [...] Interpreting Staff: YESICA LOWERY MD, STAFF RADIOLOGIST (Cistern Room Working Supervisor) Primary Interpreting Resident: Flory Guzman MD, Resident Physician /YESICA SALGUERO [facility] Encounter Notes: All associated encounter notes This section contains the clinical notes associated to the Encounter. Date/Time Encounter Note(s) Provider Source Apr 11, 2024 08:11 AM PHYSICAL MEDICINE REHAB NOTE: LOCAL TITLE: PT DAILY STL STANDARD TITLE: PHYSICAL MEDICINE REHAB NOTE DATE OF NOTE: APR 11, 2024@08:11 ENTRY DATE: APR 11, 2024@08:11:06 AUTHOR: CHELSIE BILLINGS EXP COSIGNER: URGENCY: STATUS: COMPLETED Physical Therapy Daily Note Primary Therapist: Abebe Torres DPT Seen By: [...] be rendered on an OUTPATIENT basis Place: [facility] Urgency: Routine Clinically Ind. Date: Feb 02, 2024 DST ID: Orderable Item: PT OUTPT STL Consult: Consult Request Provisional Diagnosis: Spinal stenosis, lumbar region with neurogenic claudication(ICD-10-CM M48.062) Reason For Request: Physical Therapy Outpatient Consul Chart Review: PM: Chart Review: Imaging: Primary provider:Mazin Start of Care:02/28/24 Reevaluation due:03/29/24 POC through:05/08/24 Visits to date: 4 No shows/cancellations: 0 Treatment time: 30 mins. Therapeutic exercise: 30 mins. Self mgmt: mins. Gait: mins, Subjective: Arrives using F-22. Feels as though therapy is helping.. INIITIAL SUBJECTIVE: Pt reports he just completed 2+ months of therapy (2x/wk). He was getting therapy for his back and his balance. It was helping. --Onset: chronic back issues. 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 -10 min warm up on nu step L 4 -promax 3x15 sets 70 lbs -foam balance with medicine ball twists x2 min -standing step up and step down on bosu 2x10 -mini squats with and without BUE support Access Code: [email or web address] URL: [email or web address] Date: 02/28/2024 Prepared by: Dons Exercises - [...] daily. Assessment: Patient responds well to treatment but still reports weakness in his legs. He feels he is making improvements in endurance. Goals: Short term: 3-4 weeks 1) Pt. will demonstrate independence with current HEP x 1 MET 2) Pt. will report pain at worst 6/10MET 3) Pt. to demonstrate independence with proper sitting and sleeping postures MET residential: 1) Pt to demonstrate independence with final HEP x 1 CONT 2 ) Pt. to report pain at worst 5/10 CONT 3) Pt. to improve >MDC on the SPPB indicating improved balance and strength CONT [place]/family demonstrated good understanding of education and that learning occured. Equipment: - Plan: Cont. PT 1X/wk. for up to 6 -8 visits to work on LE strengthening and endurnace and reudcing fall risk. /shen/ CHELSIE BILLINGS PTA Physical Therapist Operations Trainer Signed: 04/11/2024 10:05 CHELSIE BILLINGS [facility]
--- OUTSIDE RECORDS SUMMARY | 2024-11-17 03:46 | XMS_ITS | Encounter Summary ---
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 Date/Time Encounter Type Encounter Description Reason Provider Source Apr 21, 2024 11:00 AM TTE W/DOPPLER COMPLETE CARDIAC ECHO ICD-10-CM R06.00 Dyspnea, unspecified CHANELLE JEFFRIES Encounter Template Text not used by [place] Assessments - Encounter Diagnoses This section includes the primary and secondary diagnoses documented for the Encounter. Date/Time Primary/Secondary Diagnosis Diagnosis Name Provider Source Apr 21, 2024 11:16 AM PRIMARY Dyspnea, unspecified MAYRA ORR [facility] Plan of Treatment: Future Appointments (+ 6 months) and Future Tests (+/- 45 days) The Plan of Treatment section includes future care activities for the patient from all [facility]. This section includes future appointments and future orders which are active, pending or scheduled. Future Appointments This section includes appointments that were scheduled to occur 6 months from the date of the Encounter, up to a maximum of 20 appointments. The data comes from all [facility]. Appointment Date/Time Appointment Type Appointme nt Facility Name 2024 10:00 AM AMBULATORY - MEDICINE [facility] May 02, 2024 10:00 AM AMBULATORY - SURGERY [facility] May 04, 2024 10:30 AM AMBULATORY - [facility] May 12, 2024 10:30 AM [facility] May 17, 2024 09:00 AM AMBULATORY - MEDICINE [facility] May 18, 2024 10:30 AM AMBULATORY - REHAB MEDICIN E [facility] May 31, 2024 02:00 PM AMBULATORY - SURGERY [facility] Jun 05, 2024 08:40 AM AMBULATORY - NONE [facility] Jun 07, 2024 12:30 PM AMBULATORY - MEDICINE [facility] Jun 07, 2024 01:30 PM [facility] Jun 08, 2024 10:00 AM AMBULATORY - MEDICINE [facility] Jun 09, 2024 01:00 PM AMBULATORY - [facility]ERY [facility] Jun 19, 2024 07:00 AM AMBULATORY - MEDICINE [facility] Jun 19, 2024 08:00 AM AMBULATORY - NONE [facility] Jun 29, 2024 10:15 AM AMBULATORY - MEDICINE [facility] Jun 29, 2024 01:00 PM AMBULATORY - SURGERY [facility] Jul 03, 2024 10:30 AM AMBULATORY - MEDICINE [facility] Jul 14, 2024 12:54 PM AMBULATORY [facility] SUR[facility]ERY [facility] Jul 20, 2024 10:00 AM AMBULATORY - MEDICINE [facility] Aug 02, 2024 09:45 AM AMBULATORY - MEDICINE [facility] Active, Pending, and Scheduled Orders This section includes a listing of several types of active, pending, and scheduled orders, including clinic medications orders, diagnostic test orders, procedure orders and consult orders; where the start date of the order is 45 days before the date of the Encounter or 45 days after the date of theEncounter. The data comes from all [place] treatment facilities. Test Date/Time Test Type Test Details Facility Name March 20, 2024 12:36 PM Consult Order [facility] DENTAL SPEC Cons Billiard Table Repairer's Choice [facility] April 07, 2024 12:00 AM Laboratory - Chemi stry Order OCCULT BLOOD FIT X1 SCREEN STOOL FECES SP [facility] Lab Results: +/- 30 days of the encounter This section includes the Chemistry and Hematology Lab Results on record with [place] for the patient. Radiology Reports and Pathology Reports are provided separately, in subsequent sections. Lab Results This section contains the Chemistry/Hematology Results that were resulted 30 days before or 30 daysafter the date of the Encounter. Date/Time Source Result Type Result - Unit Interpretation Reference Range Comment May 17, 2024 10:20 AM [facility] JAK2 MUTATION (STL) Specimen Type: PLASMA Comment: A JAK2 [id number] mutation is not detected. No mutation is detected in exon 12 of JAK2. Ordering Provider: Emeli CHAU Report Released Date/Time: May 17, 2024 09:56 AM Reporting Lab: [facility] [address] [facility] [address] Performing Lab: [facility] [id number] [facility] JAK2 MUTATION (STL) NOT DETECTED NOT DETECTED May 17, 2024 10:20 AM [facility] HAPTOGLOBIN (STL) Specimen Type: PLASMA Comment: No hemolysis noted. Ordering Provider: Emeli CHAU Report Released Date/Time: May 17, 2024 09:56 AM Reporting Lab: [facility] [address] [facility] [address] Performing Lab: [facility] [address] [facility] [address] HAPTOGLOBIN (STL) 94 mg/dL 44-215 May 17, 2024 10:20 AM [facility] LDH Specimen Type: PLASMA Comment: No hemolysis noted. Ordering Provider: Emeli CHAU Report Released Date/Time: May 17, 2024 09:56 AM Reporting Lab: [address] [address] Performing Lab: [address] [address] LDH 272 U/L H 125-243 May 17, 2024 10:20 AM [facility] GGT GAMMA-GT Specimen Type: PLASMA Comment: No hemolysis noted. Ordering Provider: Emeli CHAU Report Released Date/Time: May 17, 2024 09:56 AM Reporting Lab: [address] [address] Performing Lab: [address] [address] GGT GAMMA-GT 81 [IU]/L H 12-64 May 17, 2024 10:20 AM [facility] COMPREHENSIVE METABOLIC PANEL Specimen Type: PLASMA Comment: No hemolysis noted. Ordering Provider: Emeli CHAU Report Released Date/Time: May 17, 2024 09:56 AM Reporting Lab: [address] [address] Performing Lab: [address] [address] CREATININE 1.05 mg/dL 0.7-1.3 UREA NITROGEN 16.4 [...] >60 May 17, 2024 10:20 AM [facility] CBC Specimen Type: BLOOD No comment entered. Ordering Provider: Emeli CHAU Report Released Date/Time: May 17, 2024 09:56 AM Reporting Lab: [address] [address] Performing Lab: [address] [address] WBC 5.0 10*3/uL 3.6-11.2 RBC 5.01 10*6/uL [...] April 07, 2024 11:40 AM [facility] HIV COMBO FOURTH GENERATION (STL) Specimen Type: SERUM No comment entered. Ordering Provider: JAYNE OQUENDO Report Released Date/Time: April 07, 2024 10:44 AM Reporting Lab: [address] [address] Performing Lab: [facility] [address] [facility] [address] HIV COMBO FOURTH GENERATION (STL) Nonreactive Nonreactive April 07, 2024 11:40 AM [facility] PT/INR NEW (STL-MA) Specimen Type: PLASMA No comment entered. Ordering Provider: JAYNE OQUENDO Report Released Date/Time: April 07, 2024 10:44 AM Reporting Lab: [facility] [address] [place] [phone] Performing Lab: [address] [address] PROTIME 13.0 s H 9.4-12.5 INR VALUE 1.2 {INR} April 07, 2024 11:40 AM [facility] HEP C Ab HCV Ab (L) Specimen Type: SERUM No comment entered. Ordering Provider: JAYNE OQUENDO Report Released Date/Time: April 07, 2024 10:44 AM Reporting Lab: [facility] [address] [facility] [address] Performing Lab: [address] [address] HEP C Ab HCV Ab (L) Nonreactive Nonreactive April 07, 2024 11:40 AM [facility] LIPID PANEL (L) Specimen Type: PLASMA No comment entered. Ordering Provider: JAYNE OQUENDO Report Released Date/Time: April 07, 2024 11:14 AM Reporting Lab: [facility] [address] [place] [phone] Performing Lab: [address] [address] CHOLESTEROL 180 mg/dL 0-200 TRIGLYCERIDE 145 mg/dL 0-150 CALCULATED LDL 117 mg/dL HDL(New) 34 mg/dL L >40 April 07, 2024 11:40 AM [facility] CBC Specimen Type: BLOOD Comment: No clots Ordering Provider: JAYNE OQUENDO Report Released Date/Time: April 07, 2024 10:44 AM Reporting Lab: [facility] [address] [facility] [address] Performing Lab: [facility] [address] [facility] [address] WBC 4.4 10*3/uL 3.6-11.2 RBC 5.01 10*6/uL [...] April 07, 2024 10:01 AM [facility] GLUCOSE,BLOOD-poct (STL) Specimen Type: BLOOD Comment: Test Performed by: [id number] Meter #: [id number] Ordering Provider: MANUEL BAIRD Report Released Date/Time: April 07, 2024 02:51 PM Reporting Lab: [facility] [address] [facility] [address] Performing Lab: [place] [id number] [facility] [address] GLUCOSE,BLOOD-p oct (STL) 206 mg/dL H 72-99 Social History: Smoking Status (Most current) and Tobacco Use (All prior to encounter date) This section includes the most current, and the historical, smoking and tobacco- related health factors from the [place] facility where the Encounter took place. Current Smoking Status This section includes the most current smoking, or tobacco-related health factor, from the [place] facility where the Encounter took place. Date/Time Current Smoking Status Comment Radhika ity Aug 11, 2016 10:34 AM QUIT TOBACCO >7 YEARS AGO [facility] Tobacco Use History This section includes a history of the smoking, or tobacco-related health factors, that were collected on or before the date of the Encounter. The data comes from the [place] facility where the Encounter took place. Date/Time Smoking Status/Tobacco Use Comment F acility Sep 30, 2015 10:12 AM QUIT TOBACCO >7 YEARS AGO [facility] Oct 29, 2014 10:23 AM QUIT TOBACCO >7 YEARS AGO [facility] Dec 27, 2013 01:27 PM QUIT TOBACCO >7 YEARS AGO [facility] Feb 24, 2013 02:01 PM LIFETIME NON-USER OF TOBACCO [facility] Feb 11, 2009 10:09 AM QUIT TOBACCO >7 YEARS AGO [facility] Oct 06, 2006 09:30 AM CURRENT NON-TOBACC O USER-HX OF USE [facility] Oct 06, 2006 09:30 AM TOBACCO TERMINATION STAGE [facility] Advance Directives: All historical and current Section Date Range: From patient's date of to the date document was created. This section includes ALL of a patient's completed or amended [place] Advance and Rescinded Directives. The entries below indicate that a directive exists for the patient, but an actual copy is not included with this document. The data comes from all [facility]. Date Advance Directives Provider Source Jan 19, 2017 ADVANCE DIRECTIVE DISCUSSION ERICK BARDALES [facility] Encounter Notes: All associated encounter notes This section contains the clinical notes associated to the Encounter. Date/Time Encounter Note(s) Provider Source Apr 21, 2024 12:49 PM CARDIOLOGY DIAGNOS TIC STUDY NOTE: LOCAL TITLE: CP ECHO TTE STL STANDARD TITLE: CARDIOLOGY DIAGNOSTIC STUDY NOTE DATE OF NOTE: APR 21, 2024@12:49:12 ENTRY DATE: APR 21, 2024@12:49:12 AUTHOR: CLINICAL,DEVICE PRO EXP COSIGNER: URGENCY: STATUS: COMPLETED DOCUMENT IN [facility] SEE FULL REPORT IN [facility] SIGNATURE NOT REQUIRED SEE SIGNATURE IN [facility] ([employer] TTE (P)) AUTO-INSTRUMENT DIAGNOSIS Procedure: TTE CP TTE ECHOCARDIOGRAM YASH Release Status: Released Off-Line Verified Date Verified: Apr 21, 2024@12:47:11 Administrative Closure: 04/21/2024 by: CLINICAL,DEVICE PROXY SERVICE CLINICAL,DEVICE PROXY SERVICE [facility]
--- OUTSIDE RECORDS SUMMARY | 2024-11-17 03:46 | XMS_ITS | Encounter Summary ---
Author Name [facility] [place] [facility] [place] [facility] [place] Address [address] [place] [address] Care Team Providers Care Review Engineer Name Role Phone MANUEL BAIRD Primary [...] PART A Apr 08, 2017 PART A [id number] ASHLEY WALKER PATIENT Selected Encounter This section includes the information on record at [place] for the Encounter. 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 Date/Time Primary/Secondary Diagnosis Diagnosis Name Provider Source 2024 10:44 AM PRIMARY Type 2 diabetes w diabetic autonomic (poly)neuropathy REED COLLADO [facility] 2024 10:44 AM SECONDARY Essential (primary) hypertension TOBIASREED B [facility] 2024 10:44 AM SECONDARY Hyperlipidemia, unspecified TOBIAS,REED B [facility] Plan of Treatment: Future Appointments (+ 6 months) and Future Tests (+/- 45 days) The Plan of Treatment section includes [facility] care [facility] for the [facility] This section includes future appointments and future orders which are active, pending or scheduled. Future Appointments This section includes appointments that were scheduled to occur 6 months from the date of the Encounter, up to a maximum of 20 appointments. The data comes from all [place] treatment [facility]. Appointment Date/Time Appointment Type Appointme nt Facility Name May 02, 2024 10:00 AM AMBULATORY - SURGERY [facility] May 04, 2024 10:30 AM AMBULATORY - REHAB MEDICIN E [facility] May 12, 2024 10:30 AM AMBULATORY - SURGERY [facility] May 17, 2024 09:00 AM AMBULATORY - MEDICINE [facility] May 18, 2024 10:30 AM AMBULATORY - REHAB MEDICIN E [facility] May 31, 2024 02:00 PM AMBULATORY - SURGERY [facility] Jun 05, 2024 08:40 AM AMBULATORY - NONE [facility] Jun 07, 2024 12:30 PM AMBULATORY - MEDICINE [facility] Jun 07, 2024 01:30 PM [facility] Jun 08, 2024 10:00 AM AMBULATORY - MEDICINE [facility] Jun 09, 2024 01:00 PM AMBULATORY - SURGERY [facility] Jun 19, 2024 07:00 AM AMBULATORY - MEDICINE [facility] Jun 19, 2024 08:00 AM AMBULATORY - NONE [facility] Jun 29, 2024 10:15 AM AMBULATORY - MEDICINE [facility] Jun 29, 2024 01:00 PM AMBULATORY - SURGERY [facility] Jul 03, 2024 10:30 AM AMBULATORY - MEDICINE [facility] Jul 14, 2024 12:54 PM AMBULATORY - SURGERY [facility] Jul 20, 2024 10:00 AM AMBULATORY - MEDICINE [facility] Aug 02, 2024 09:45 AM AMBULATORY - MEDICINE [facility] Aug 24, 2024 10:00 AM AMBULATORY - MEDICINE [facility] Active, Pending, and Scheduled Orders This section includes a listing of several types of active, pending, and scheduled orders, including clinic medications orders, diagnostic test orders, procedure orders and consult orders; where the start date of the order is 45 days before the date of the Encounter or 45 days after the date of theEncounter. The data comes from all [place] treatment facilities. Test Date/Time Test Type Test Details Facility Name March 20, 2024 12:36 PM Consult Order [facility] DENTAL SPEC Cons International Trade Manager's Choice [facility] April 07, 2024 12:00 AM Laboratory - Chemi stry Order OCCULT BLOOD FIT X1 SCREEN STOOL FECES SP [facility] Lab Results: +/- 30 days of the encounter This section includes the Chemistry and Hematology Lab Results on record with [place] for the patient. Radiology Reports and Pathology Reports are provided separately, in subsequent sections. Lab Results This section contains the Chemistry/Hematology Results that were resulted 30 days before or 30 daysafter the date of the Encounter. Date/Time Source Result Type Result - Unit Interpretation Reference Range Comment May 17, 2024 10:20 AM [facility] JAK2 MUTATION (STL) Specimen Type: PLASMA Comment: A JAK2 [id number] mutation is not detected. No mutation is detected in exon 12 of JAK2. Ordering Provider: Emeli CHAU Report Released Date/Time: May 17, 2024 09:56 AM Reporting Lab: [facility] [address] [facility] [phone] Performing Lab: [facility] [address] [facility] [address] JAK2 MUTATION (STL) NOT DETECTED NOT DETECTED May 17, 2024 10:20 AM [facility] LDH Specimen Type: PLASMA Comment: No hemolysis noted. Ordering Provider: Emeli CHAU Report Released Date/Time: May 17, 2024 09:56 AM Reporting Lab: [address] [address] Performing Lab: [address] [address] LDH 272 U/L H 125-243 May 17, 2024 10:20 AM [facility] HAPTOGLOBIN (STL) Specimen Type: PLASMA Comment: No hemolysis noted. Ordering Provider: Emeli CHAU Report Released Date/Time: May 17, 2024 09:56 AM Reporting Lab: [address] [address] Performing Lab: [address] [address] HAPTOGLOBIN (STL) 94 mg/dL 44-215 May 17, 2024 10:20 AM [facility] GGT GAMMA-GT Specimen Type: PLASMA Comment: No hemolysis noted. Ordering Provider: Emeli CHAU Report Released Date/Time: May 17, 2024 09:56 AM Reporting Lab: [address] [address] Performing Lab: [address] [address] GGT GAMMA-GT 81 [IU]/L H 12-64 May 17, 2024 10:20 AM [facility] COMPREHENSIVE METABOLIC PANEL Specimen Type: PLASMA Comment: No hemolysis noted. Ordering Provider: Emeli CHAU Report Released Date/Time: May 17, 2024 09:56 AM Reporting Lab: [address] [address] Performing Lab: [address] [address] CREATININE 1.05 mg/dL 0.7-1.3 UREA NITROGEN 16.4 [...] >60 May 17, 2024 10:20 AM [facility] CBC Specimen Type: BLOOD No comment entered. Ordering Provider: Emeli CHAU Report Released Date/Time: May 17, 2024 09:56 AM Reporting Lab: [facility] [address] [place] [address] Performing Lab: [place] [id number] [facility] [address] WBC 5.0 10*3/uL 3.6-11.2 RBC 5.01 10*6/uL [...] April 07, 2024 11:40 AM [facility] HIV COMBO FOURTH GENERATION (STL) Specimen Type: SERUM No comment entered. Ordering Provider: JAYNE OQUENDO Report Released Date/Time: April 07, 2024 10:44 AM Reporting Lab: [facility] [address] [facility] [address] Performing Lab: [facility] [address] [facility] [address] HIV COMBO FOURTH GENERATION (STL) Nonreactive Nonreactive April 07, 2024 11:40 AM [facility] PT/INR NEW (STL-MA) Specimen Type: PLASMA No comment entered. Ordering Provider: JAYNE OQUENDO Report Released Date/Time: April 07, 2024 10:44 AM Reporting Lab: [facility] [address] [place] [phone] Performing Lab: [facility] [address] [place] [phone] PROTIME 13.0 s H 9.4-12.5 INR VALUE 1.2 {INR} April 07, 2024 11:40 AM [facility] HEP C Ab HCV Ab (L) Specimen Type: SERUM No comment entered. Ordering Provider: JAYNE OQUENDO Report Released Date/Time: April 07, 2024 10:44 AM Reporting Lab: [facility] [address] [facility] [address] Performing Lab: [facility] [address] [place] [phone] HEP C Ab HCV Ab (L) Nonreactive Nonreactive April 07, 2024 11:40 AM [facility] LIPID PANEL (L) Specimen Type: PLASMA No comment entered. Ordering Provider: JAYNE OQUENDO Report Released Date/Time: April 07, 2024 11:14 AM Reporting Lab: [facility] [address] [place] [phone] Performing Lab: [facility] [address] [place] [phone] CHOLESTEROL 180 mg/dL 0-200 TRIGLYCERIDE 145 mg/dL 0-150 CALCULATED LDL 117 mg/dL HDL(New) 34 mg/dL L >40 April 07, 2024 11:40 AM [facility] CBC Specimen Type: BLOOD Comment: No clots Ordering Provider: JAYNE OQUENDO Report Released Date/Time: April 07, 2024 10:44 AM Reporting Lab: [facility] [address] [place] [address] Performing Lab: [facility] [address] [facility] [address] WBC 4.4 10*3/uL 3.6-11.2 RBC 5.01 10*6/uL [...] April 07, 2024 10:01 AM [facility] GLUCOSE,BLOOD-poct (STL) Specimen Type: BLOOD Comment: Test Performed by: [id number] Meter #: [id number] Ordering Provider: MANUEL BAIRD Report Released Date/Time: April 07, 2024 02:51 PM Reporting Lab: [facility] [address] [facility] [address] Performing Lab: [facility] [address] [facility] GLUCOSE,BLOOD-p oct (STL) 206 mg/dL H 72-99 Social History: Smoking Status (Most current) and Tobacco Use (All prior to encounter date) This section includes the most current, and the historical, smoking and tobacco- related health factors from the [facility] where the Encounter took place. Current Smoking Status This section includes the most current smoking, or tobacco-related health factor, from the [place] facility where the Encounter took place. Date/Time Current Smoking Status Comment Facil ity March 16, 2024 09:30 AM VA-TOBACCO FORMER USER [facility] Tobacco Use History This section includes a history of the smoking, or tobacco-related health factors, that were collected on or before the date of the Encounter. The data comes from the [place] facility where the Encounter took place. Date/Time Smoking Status/Tobacco Use Comment F acility March 16, 2024 09:30 AM VA-TOBACCO QUIT 15 YRS OR MORE [facility] March 22, 2023 10:00 AM VA-TOBACCO FORMER USER [facility] March 22, 2023 10:00 AM VA-TOBACCO QUIT 15 YRS OR MORE [facility] Jan 29, 2022 03:00 PM VA-TOBACCO FORMER USER [facility] Jan 29, 2022 03:00 PM VA-TOBACCO QUIT 15 YRS OR MORE [facility] Feb 07, 2019 04:17 PM VA-TOBACCO FORMER USER [facility] Feb 07, 2019 04:17 PM VA-TOBACCO QUIT 15 YRS OR MORE [facility] March 09, 2018 12:36 PM QUIT TOBACCO >7 YEARS AGO [facility] Aug 05, 2017 02:36 PM QUIT TOBACCO >7 YEARS AGO [facility] Advance Directives: All historical and current Section Date Range: From patient's date of to the date document was created. This section includes ALL of a patient's completed or amended [place] Advance and Rescinded Directives. The entries below indicate that a directive exists for the patient, but an actual copy is not included with this document. The data comes from all [facility]. Date Advance Directives Provider Source Jan 19, 2017 ADVANCE DIRECTIVE DISCUSSION ERICK BARDALES [facility] Encounter Notes: All associated encounter notes This section contains the clinical notes associated to the Encounter. Date/Time Encounter Note(s) Provider Source 2024 10:02 AM INTERNAL MEDICINE CLINICAL PHARMACIST MEDICATION MGT NOTE: LOCAL TITLE: CLINICAL PHARMACIST NOTE [facility] STANDARD TITLE: INTERNAL MEDICINE CLINICAL PHARMACIST MEDICATION DATE OF NOTE: 2024@10:02 ENTRY DATE: 2024@10:02:42 AUTHOR: REED COLLADO EXP COSIGNER: URGENCY: STATUS: COMPLETED CLINICAL PHARMACIST NOTE STL Has ADDENDA CLINICAL PHARMACY FOLLOW-UP Subjective: CHET WALKER is a 74 MALE who presents to clinic for follow up on DM. PMH: 1) Asthma (SNOMED CT 385768353) 2) Gastro-esophageal reflux disease (SNOMED CT 835430341) 3) Peptic Ulcer Disease * (ICD-9-CM 533.90) 4) Hypertension (SNOMED CT 55673151) 5) Pituitary Neoplasms (ICD-9-CM 194.3) 6) Hyperlipidemia (SNOMED CT 96833341) 7) Erectile dysfunction associated with type 2 diabetes mellitus 8) Osteoarthritis of knee 9) Diabetes mellitus with neuropathy 10) Low back pain 11) Obesity 12) Patellofemoral syndrome of right knee 13) History of left total knee replacement 14) History of arthroplasty of right knee 15) Exposure to potentially hazardous substance 16) Fatty liver During the last contact with vet, the following changes were made: --none During current visit: Got rest of the teeth removed and boner grafts yet. and having lots of pain Dietary/Lifestyle/Social History modifications made: --eating fish and mashed potatoes --able to eat a burger w/out bun --Eating 1-2 meal, always dinner usually --tries to snack ROS: DM (+) hypoglycemia symptoms or values <80 mg/dL --was sleeping and did not eat (-) hyperglycemia symptoms --some highs bc I keep candy at the house or will grab a glucose tab bc he feels too low --feels bad when in the low 100S (+) tingling/numbness (-) N/V/D/C HLD (-) CP (+) muscle pain/cramps - only if does too much HTN (-) orthostasis (+) edema about the same (-) cough, SANCHES Objective: Allergies: TRAMADOL Medications: Active and Recently Outpatient Medications (excluding Supplies): Active Outpatient Medications Status 1) ACCU-CHEK GUIDE (GLUCOSE) TEST STRIP USE [...] MOUTH EVERY EVENING FOR HIGH CHOLESTEROL 5) DEXTROSE 24GM/31GM SQUEEZE TUBE TAKE 1 TUBE BY MOUTH ACTIVE NEEDED FOR LOW BLOOD SUGAR REPEAT DOSE IF HYPOGLYCEMIA CONTINUES 15 MINUTES AFTER THE FIRST DOSE. 6) DULOXETINE HCL 60MG EC CAP TAKE ONE CAPSULE BY MOUTH ACTIVE ONCE A DAY FOR NERVE PAIN DO NOT ABRUPTLY DISCONTINUE MEDICATION. 7) HCTZ 12.5/LISINOPRIL 20MG TAB TAKE 2 TABLETS BY MOUTH ACTIVE EVERY MORNING TO LOWER BLOOD PRESSURE 8) INSULIN,ASPART(EQV-NOVLG)100 UN/ML FLXPEN INJECT 6 ACTIVE UNITS UNDER THE SKIN BEFORE SUPPER FOR DIABETES ADMINISTER 10 MINUTES BEFORE FOOD DIRECTED. REFRIGERATE UN-OPENED PENS. DISCARD CARTRIDGE 28 DAYS AFTER OPENING. 9) INSULIN,GLARG(TOUJEO MAX) 300 UNT/ML 3ML INJECT 90 ACTIVE UNITS UNDER THE SKIN ONCE A DAY FOR DIABETES ADMINISTER AT SAME TIME EACH DAY DIRECTED. DISCARD ANY OPEN CARTRIDGE AFTER 42 DAYS. *HIGH DOSE INSULIN* 10) MELOXICAM 7.5MG TAB TAKE ONE TABLET BY MOUTH ONCE A ACTIVE DAY NEEDED FOR OSTEOARTHRITIS takes as needed 11) METFORMIN HCL 500MG 24HR SA TAB TAKE TWO TABLETS BY ACTIVE MOUTH TWICE A DAY FOR BLOOD SUGAR CONTROL. TAKE WITH FOOD. AVOID ALCOHOL. DISCONTINUE BEFORE GETTING XRAY DYE. 12) METHOCARBAMOL 500MG TAB TAKE 1 TABLET BY MOUTH TWICE ACTIVE DAILY NEEDED FOR MUSCLE SPASM not taking 13) MULTIVITAMIN CAP/TAB TAKE 1 TABLET BY MOUTH ONCE A ACTIVE DAY FOR NUTRITION/DIETARY SUPPLEMENTATION 14) OMEPRAZOLE 20MG EC CAP TAKE ONE CAPSULE BY MOUTH ACTIVE EVERY MORNING TO LOWER STOMACH ACID. TAKE 30 MINUTES PRIOR TO FOOD. 15) PREGABALIN 200MG ORAL CAP TAKE ONE CAPSULE BY MOUTH ACTIVE TWICE A DAY 16) SEMAGLUTIDE 1MG/0.75ML INJ PEN 3ML INJECT 1MG UNDER ACTIVE THE SKIN EVERY WEEK FOR DIABETES Active Non-VA Medications Status 1) Non-VA NAPROXEN NA 220MG TAB 220MG BY MOUTH ACTIVE NEEDED not right now meds: OTC/Non-VA meds: as above 1. ibuprofen 800mg 2. ampicillin dose? Medication reconciliation completed: YES Adherence to above medications: yes Labs: CMP: SODIUM 140 mEq/L 03/06/2024 09:52 POTASSIUM 4.3 [...] 09:52 EGFR (CKD-EPI 2020) 92.3 03/06/2024 09:52 Estimated CrCl mL/min FLP: TRIGLYCERIDE 145 mg/dL 04/07/2024 11:40 CHOLESTEROL 180 mg/dL 04/07/2024 11:40 HDL(New) 34 L mg/dL 04/07/2024 11:40 CALCULATED LDL 117 mg/dL 04/07/2024 11:40 MICRAL/CR PROFILE: CREATuF: 193.6 (03/06/24 10:03) M/CREAT: 59 (03/06/24 10:03) MICRAL: 114.8 (03/06/24 10:03) A1c: HGA1C 7.0 H % 03/06/2024 09:52 TSH: TSH 2.984 uIU/mL 03/06/2024 09:52 Pretty Personal - Glucose Pattern Summary 14 days 14 day info Avg Glucose: 162 12am-6am 175 6am-12pm 136 12pm-6pm 162 6pm-12am 174 Time in Target: Above 180 mg/dL: 33% In Target Range (70-180 mg/dL): 67% Below 70 mg/dL: 0% Sensor Usage: 96 % Daily scans: 37 low glucose events total 1 12am-6am 1 6am-12pm 12pm-6pm 6pm-12am GOALS Time in Range: [...] 54 mg/dL: NONE %CV <=36% BP last visit:140/90 (04/07/2024 10:06) Pulse last visit: 61 (04/07/2024 10:01) Manual BP seated, rested: 148/86 mmHg Pulse: 68 bpm Assessment/Plan: 1) Diabetes Goal A1c <7-8%, FBG 80-130, post-prandial BG <180, per [place] guidelines --Controlled per recent A1c. Pretty shows TIR and average glucose at goals. Some highs due to eating candy. Vet had all teeth removed and bone grafts. Has been feeling poor and eating soft foods. Discussed some diabetic friendly options and soft proteins to try and incorporate into diet. One ow due to sleeping too long. No ADRs, GFR WNL --Continue metformin SA 500mg 2 tabs BID , GFR >60 --Continue semaglutide 1mg once a week. --Continue Toujeo 300 units/ml 90 units daily --Continue aspart 6 units before dinner. --Avoiding SGLT2 due to h/o genital fungal infections --Instructed vet to check SMBGs using pretty --Educated vet on hypoglycemia symptoms and appropriate treatment and when to call clinic or go to emergency room. Call for lows <70. 2) Lipids - Goal is treatment with moderate-intensity statin per VADoD guidelines; moderate to high-intensity statin per ACC/AHA guidelines., --CCT 3) HTN - <130/80 mmHg per 2017 AHA guidelines; <140/90 >60 + DM per VADoD guidelines. --Uncontrolled on check, pt has been taking ibuprofen and is in pain post dental procedure, CCT for now and will f/u next appt. - Instructed vet to call CP if [...] management/dietary/physical activity) specific for the vet's needs. - verbalized understanding to all plans discussed today. Questions were answered to vet's satisfaction. Time spent with vet: 30 minutes RTC: 6 weeks (Pt advised to stop at front end ui developer to schedule follow up appointment) PBM PharmD [...] made (medication review completed, no discrepancies identified) /acmryn COLLADO PHARM.D., [facility] CLINICAL PHARMACIST Signed: 2024 10:44 05/02/2024 ADDENDUM STATUS: COMPLETED vet called saying he was at PT he was told he would be better if he joined a health club. He wonders if he can use the whirlpool or sauna, advised heat may increase risk of falling off (increased sweat), use transparent bandages and to use them. /camryn COLLADO PHARM.D., [facility] CLINICAL PHARMACIST Signed: 05/02/2024 13:51 REED COLLADO [facility]
--- OUTSIDE RECORDS SUMMARY | 2024-11-17 03:47 | XMS_ITS | Encounter Summary ---
Author Name [facility] [place] [facility] [place] Address [address] [place] [address] Care Team Providers Care Greenhouse Worker Name Role Phone MANUEL BAIRD Primary [...] PART A Apr 08, 2017 PART A [id number] ASHLEY WALKER PATIENT Selected Encounter This section includes the information on record at [place] for the Encounter. Date/Time Encounter Type Encounter Description Reason Provider Source April 06, 2024 01:40 PM Outpatient Encounter PRIMARY CARE/MEDICINE FABRICIO CAMEJO Encounter Template Text not used by [place] Plan of Treatment: Future Appointments (+ 6 [...] 20 appointments. The data comes from all [facility]. Appointment Date/Time Appointment Type Appointme nt Facility Name April 07, 2024 10:15 AM AMBULATORY - MEDICINE [facility] Apr 11, 2024 09:30 AM AMBULATORY - REHAB MEDICIN E [facility] Apr 18, 2024 02:00 PM AMBULATORY - NONE [facility] Apr 20, 2024 10:30 AM AMBULATORY - REHAB MEDICIN E [facility] Apr 21, 2024 11:00 AM AMBULATORY - MEDICINE [facility] 2024 10:00 AM AMBULATORY - MEDICINE [facility] May 02, 2024 10:00 AM AMBULATORY - SURGERY . [facility] May 04, 2024 10:30 AM AMBULATORY - REHAB MEDICIN E [facility] May 12, 2024 10:30 AM AMBULATORY - SURGERY [facility] May 17, 2024 09:00 AM AMBULATORY - MEDICINE [facility] May 18, 2024 10:30 AM AMBULATORY - REHAB MEDICIN E [facility] May 31, 2024 02:00 PM [facility] Jun 05, 2024 08:40 AM AMBULATORY - NONE [facility] Jun 07, 2024 12:30 PM AMBULATORY - MEDICINE [facility] Jun 07, 2024 01:30 PM AMBULATORY - NONE [facility] Jun 08, 2024 10:00 AM AMBULATORY - MEDICINE [facility] Jun 09, 2024 01:00 PM AMBULATORY - SURGERY [facility] Jun 19, 2024 07:00 AM AMBULATORY - MEDICINE [facility] Jun 19, 2024 08:00 AM AMBULATORY - NONE [facility] Jun 29, 2024 10:15 AM AMBULATORY - MEDICINE [facility] Active, Pending, and Scheduled Orders This section includes a listing of several types of active, pending, and scheduled orders, including clinic medications orders, diagnostic test orders, procedure orders and consult orders; where the start date of the order is 45 days before the date of the Encounter or 45 days after the date of theEncounter. The data comes from all [place] treatment facilities. Test Date/Time Test Type Test Details Facility Name March 20, 2024 12:36 PM Consult Order [facility] DENTAL SPEC Cons Water Resources Engineer's Choice [facility] April 07, 2024 12:00 AM Laboratory - Chemi stry Order OCCULT BLOOD FIT X1 SCREEN STOOL FECES SP [facility] Lab Results: +/- 30 days of the encounter This section includes the Chemistry and Hematology Lab Results on record with [place] for the patient. Radiology Reports and Pathology Reports are provided separately, in subsequent sections. Lab Results This section contains the Chemistry/Hematology Results that were resulted 30 days before or 30 daysafter the date of the Encounter. Date/Time Source Result Type Result - Unit Interpretation Reference Range Comment April 07, 2024 11:40 AM [facility] HIV COMBO FOURTH GENERATION (STL) Specimen Type: SERUM No comment entered. Ordering Provider: JAYNE OQUENDO Report Released Date/Time: April 07, 2024 10:44 AM Reporting Lab: [facility] [address] [facility] [address] Performing Lab: [address] [address] HIV COMBO FOURTH GENERATION (STL) Nonreactive Nonreactive April 07, 2024 11:40 AM [facility] PT/INR NEW ([facility]) Specimen Type: PLASMA No comment entered. Ordering Provider: JAYNE OQUENDO Report Released Date/Time: April 07, 2024 10:44 AM Reporting Lab: [facility] [address] Performing Lab: [address] [address] PROTIME 13.0 s H 9.4-12.5 INR VALUE 1.2 {INR} April 07, 2024 11:40 AM [facility] HEP C Ab HCV Ab (L) Specimen Type: SERUM No comment entered. Ordering Provider: JAYNE OQUENDO Report Released Date/Time: April 07, 2024 10:44 AM Reporting Lab: [address] [address] Performing Lab: [address] [address] HEP C Ab HCV Ab (L) Nonreactive Nonreactive April 07, 2024 11:40 AM [facility] LIPID PANEL (L) Specimen Type: PLASMA No comment entered. Ordering Provider: JAYNE OQUENDO Report Released Date/Time: April 07, 2024 11:14 AM Reporting Lab: [address] [address] Performing Lab: [address] [address] CHOLESTEROL 180 mg/dL 0-200 TRIGLYCERIDE 145 mg/dL 0-150 CALCULATED LDL 117 mg/dL HDL(New) 34 mg/dL L >40 April 07, 2024 11:40 AM [facility] CBC Specimen Type: BLOOD Comment: No clots Ordering Provider: JAYNE OQUENDO Report Released Date/Time: April 07, 2024 10:44 AM Reporting Lab: [address] [address] Performing Lab: [address] [address] WBC 4.4 10*3/uL 3.6-11.2 RBC 5.01 10*6/uL [...] SCRNPERF YES April 07, 2024 10:01 AM [facility] GLUCOSE,BLOOD-poct (STL) Specimen Type: BLOOD Comment: Test Performed by: [id number] Meter #: [id number] Ordering Provider: MANUEL BAIRD Report Released Date/Time: April 07, 2024 02:51 PM Reporting Lab: [facility] [address] [facility] [address] Performing Lab: [place] [id number] [facility] [address] GLUCOSE,BLOOD- poct (STL) 206 mg/dL H 72-99 Social History: Smoking Status (Most current) and Tobacco Use (All prior to encounter date) This section includes the most current, and the historical, smoking and tobacco- related health factors from the [place] facility where the Encounter took place. Current Smoking Status This section includes the most current smoking, or tobacco-related health factor, from the [place] facility where the Encounter took place. Date/Time Current Smoking Status Comment Radhika goins Aug 11, 2016 10:34 AM QUIT TOBACCO >7 YEARS AGO [facility] Tobacco Use History This section includes a history of the smoking, or tobacco-related health factors, that were collected on or before the date of the Encounter. The data comes from the [place] facility where the Encounter took place. Date/Time Smoking Status/Tobacco Use Comment F acility Sep 30, 2015 10:12 AM QUIT TOBACCO >7 YEARS AGO [facility] Oct 29, 2014 10:23 AM QUIT TOBACCO >7 YEARS AGO [facility] Dec 27, 2013 01:27 PM QUIT TOBACCO >7 YEARS AGO [facility] Feb 24, 2013 02:01 PM LIFETIME NON-USER OF TOBACCO [facility] Feb 11, 2009 10:09 AM QUIT TOBACCO >7 YEARS AGO [facility] Oct 06, 2006 09:30 AM CURRENT NON-TOBACC O USER-HX OF USE [facility] Oct 06, 2006 09:30 AM TOBACCO TERMINATION STAGE [facility] Advance Directives: All historical and current Section Date Range: From patient's date of to the date document was created. This section includes ALL of a patient's completed or amended [place] Advance and Rescinded Directives. The entries below indicate that a directive exists for the patient, but an actual copy is not included with this document. The data comes from all [place] facilities. Date Advance Directives Provider Source Jan 19, 2017 ADVANCE DIRECTIVE DISCUSSION ERICK BARDALES [facility] Radiology Reports: +/- 30 days of [...] the Encounter. The data comes from all [place] treatment facilities. Date/Time Radiology Report Provider Source March 15, 2024 08:01 AM US ABDOMEN COMPLET E W/BLOOD FLOW DOPPLER ([facility]): CHET WALKER [id number] -[phone] M Exm Date: MARCH 15, 2024@08:01 Req Phys: MANUEL BAIRD Pat Loc: [facility]-MAN PACT [facility] 4 (Req'g Im Loc: YASH-ULTRASOUND YASH Service: Unknown [facility] [place] [address] [place] [address] (Case [id number] COMPLETE) US ABDOMEN COMPLETE REDUCE SERVIC(US Detailed) CPT:18423 CPT Modifiers : 52 REDUCED SERVICES Reason for Study: thrombocytopenia, please check liver and spleen. (Case [id number] COMPLETE) US BLOOD FLOW ABD/RENAL DOPPLER ((US Detailed) CPT:66894 Clinical History: Report Status: Verified Date Reported: MARCH 15, 2024 Date Verified: MARCH 15, 2024 Shirrer E-Sig:/ES/DILEEP LOWERY MD Report: US ABDOMEN COMPLETE REDUCE SERVICE, US BLOOD FLOW ABD/RENAL DOPPLER (COMPLETE) [id number], [id number] DATE: 03/15/2024 8:01 AM EXAM: ABDOMINAL ULTRASOUND [id number], [id number] HISTORY: thrombocytopenia, please check liver and spleen. [...] 2. Splenomegaly measuring 15.6 cm in length. IDileep, have reviewed the images and report and concur with these findings. Primary Interpreting Staff: DILEEP LOWERY MD, STAFF RADIOLOGIST (Shirrer) Primary Interpreting Resident: Flory Guzman MD, Resident Physician /[facility] Encounter Notes: All associated encounter notes This section contains the clinical notes associated to the Encounter. Date/Time Encounter Note(s) Provider Source April 06, 2024 01:40 PM NURSING NOTE: LOCAL TITLE: V15 PACT TELEPHONE CONTACT NOTE STL STANDARD TITLE: NURSING NOTE DATE OF NOTE: APRIL 06, 2024@13:40 ENTRY DATE: APRIL 06, 2024@13:41:18 AUTHOR: FABRICIO CAMEJO EXP COSIGNER: URGENCY: STATUS: COMPLETED Patient/Other contacted: Patient Patient Identifiers : Full Name Date of Appointment Reminder: Outbound call to patient to remind of upcoming: Provider in-person with [facility] 4 Appointment is scheduled for: March@10:15 Appointment type: In-person, instructed to: Write down any questions you may have to discuss with your provider at your appointment. Bring any forms or non-VA records if needed. Arrive 15 mins early to check-in allowing time for traffic and parking. Take your medicine as you normally would that morning, and bring all your medicine with you to the appointment: this includes any purchased over the counter that you are using. Clinical reminders: Other: Unable to complete at this time Encouraged to contact PC Team with questions/concerns or if need to reschedule/cancel appointment. Provided/reviewed the nurse advice line (ext [phone]) for medical needs after hours. Contact understanding verified by teach back: Yes Total time spent on phone: 5 mins /shen/ FABRICIO CAMEJO LPN LICENSED PRACTICAL NURSE Signed: 04/06/2024 13:42 FABRICIO CAMEJO [facility]
--- OUTSIDE RECORDS SUMMARY | 2024-11-17 03:47 | XMS_ITS | Encounter Summary ---
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 Date/Time Encounter Type Encounter Description Reason Provider Source March 21, 2024 09:30 AM GAIT TRAINING THERAPY PHYSICAL THERAPY ICD-10-CM M48.062 Spinal stenosis, lumbar region with neurogenic claudication MANUEL BAIRD Encounter Template Text not used by [place] Assessments - Encounter Diagnoses This section includes the primary and secondary diagnoses documented for the Encounter. Date/Time Primary/Secondary Diagnosis Diagnosis Name Provider Source March 21, 2024 12:27 PM PRIMARY Spinal stenosis, lumbar region with neurogenic claudication CHELSIE BILLINGS [facility] Plan of Treatment: Future Appointments (+ 6 months) and Future Tests (+/- 45 days) The Plan of Treatment section includes future care activities for the patient [facility] [place] [facility] This section includes future appointments and future orders which are active, pending or scheduled. Future Appointments This section includes appointments that were scheduled to occur 6 months from the date of the Encounter, up to a maximum of 20 appointments. The data comes from all [facility]. Appointment Date/Time Appointment Type Appointme nt Facility Name March 27, 2024 08:30 AM AMBULATORY - NONE [facility] March 28, 2024 10:00 AM AMBULATORY - REHAB MEDICIN E [facility] April 04, 2024 09:30 AM AMBULATORY - REHAB MEDICIN [facility] April 07, 2024 10:15 AM AMBULATORY - MEDICINE [facility] Apr 11, 2024 09:30 AM AMBULATORY - REHAB MEDICIN E [facility] Apr 18, 2024 02:00 PM AMBULATORY - NONE [facility] Apr 20, 2024 10:30 AM AMBULATORY - REHAB MEDICIN E [facility] Apr 21, 2024 11:00 AM AMBULATORY - MEDICINE [facility] 2024 10:00 AM AMBULATORY - MEDICINE [facility] May 02, 2024 10:00 AM AMBULATORY - SURGERY [facility] May 04, 2024 10:30 AM AMBULATORY - REHAB MEDICIN E [facility] May 12, 2024 10:30 AM AMBULATORY - SURGERY [facility] May 17, 2024 09:00 AM AMBULATORY - MEDICINE [facility] May 18, 2024 10:30 AM AMBULATORY - REHAB MEDICIN E [facility] May 31, 2024 02:00 PM AMBULATORY - SURGERY [facility] Jun 05, 2024 08:40 AM AMBULATORY - NONE [facility] Jun 07, 2024 12:30 PM AMBULATORY - MEDICINE [facility] Jun 07, 2024 01:30 PM AMBULATORY - NONE [facility] Jun 08, 2024 10:00 AM AMBULATORY - MEDICINE [facility] Jun 09, 2024 01:00 PM AMBULATORY - SURGERY [facility] Julián JOLLEY [facility] Active, Pending, and Scheduled Orders This section includes a listing of several types of active, pending, and scheduled orders, including clinic medications orders, diagnostic test orders, procedure orders and consult orders; where the start date of the order is 45 days before the date of the Encounter or 45 days after the date of theEncounter. The data comes from all [place] treatment facilities. Test Date/Time Test Type Test Details Facility Name March 20, 2024 12:36 PM Consult Order [facility] DENTAL SPEC Cons Tester/Lift Trucker's Choice [facility] April 07, 2024 12:00 AM Laboratory - Chemi stry Order OCCULT BLOOD FIT X1 SCREEN STOOL FECES SP [facility] Lab Results: +/- 30 days of the encounter This section includes the Chemistry and Hematology Lab Results on record with [place] for the patient. Radiology Reports and Pathology Reports are provided separately, in subsequent sections. Lab Results This section contains the Chemistry/Hematology Results that were resulted 30 days before or 30 daysafter the date of the Encounter. Date/Time Source Result Type Result - Unit Interpretation Reference Range Comment April 07, 2024 11:40 AM [facility] HIV COMBO FOURTH GENERATION (STL) Specimen Type: SERUM No comment entered. Ordering Provider: JAYNE OQUENDO Report Released Date/Time: April 07, 2024 10:44 AM Reporting Lab: [facility] [address] [facility] [facility] [address] Performing Lab: [facility] [address] [facility] [address] HIV COMBO FOURTH GENERATION (STL) Nonreactive Nonreactive April 07, 2024 11:40 AM [facility] HEP C Ab HCV Ab (L) Specimen Type: SERUM No comment entered. Ordering Provider: JAYNE OQUENDO Report Released Date/Time: April 07, 2024 10:44 AM Reporting Lab: [facility] [address] [facility] [facility] [address] Performing Lab: [facility] [address] [address] HEP C Ab HCV Ab ([facility]) Nonreactive Nonreactive April 07, 2024 11:40 AM [facility] PT/INR NEW (L-MA) Specimen Type: PLASMA No comment entered. Ordering Provider: JAYNE OQUENDO Report Released Date/Time: April 07, 2024 10:44 AM Reporting Lab: [address] [address] Performing Lab: [address] [address] PROTIME 13.0 s H 9.4-12.5 INR VALUE 1.2 {INR} April 07, 2024 11:40 AM [facility] LIPID PANEL ([facility]) Specimen Type: PLASMA No comment entered. Ordering Provider: JAYNE OQUENDO Report Released Date/Time: April 07, 2024 11:14 AM Reporting Lab: [address] [address] Performing Lab: [address] [address] CHOLESTEROL 180 mg/dL 0-200 TRIGLYCERIDE 145 mg/dL 0-150 CALCULATED LDL 117 mg/dL HDL(New) 34 mg/dL L >40 April 07, 2024 11:40 AM [facility] CBC Specimen Type: BLOOD Comment: No clots Ordering Provider: JAYNE OQUENDO Report Released Date/Time: April 07, 2024 10:44 AM Reporting Lab: [address] [address] Performing Lab: [address] [address] WBC 4.4 10*3/uL 3.6-11.2 RBC 5.01 10*6/uL [...] SCRNPERF YES April 07, 2024 10:01 AM [facility] GLUCOSE,BLOOD-poct (STL) Specimen Type: BLOOD Comment: Test Performed by: [employer] Meter #: [id number] Ordering Provider: MANUEL BAIRD Report Released Date/Time: April 07, 2024 02:51 PM Reporting Lab: [address] [address] Performing Lab: [address] [address] GLUCOSE,BLOOD- poct (STL) 206 mg/dL H 72-99 Mar 06, 2024 10:03 AM [facility] MICRAL/CREAT PROFILE (STL) Specimen Type: URINE No comment entered. Ordering Provider: MANUEL BAIRD Report Released Date/Time: Mar 06, 2024 09:47 AM Reporting Lab: [facility] [address] [facility] [address] Performing Lab: [facility] [address] [facility] [address] URINE ALBUMIN (PB-STL) 114.8 mg/L uACR (STL) 59 mg/g H 0-29 CREATININE URINE/OTHERS 193.6 mg/dL H 63-166 Mar 06, 2024 09:52 AM [facility] HGA1C Specimen Type: BLOOD No comment entered. Ordering Provider: MANUEL BAIRD Report Released Date/Time: Mar 06, 2024 09:47 AM Reporting Lab: [facility] [address] [facility] [address] Performing Lab: [facility] [address] [facility] [address] HGA1C 7.0 H 4.0-6.0 Mar 06, 2024 09:52 AM [facility] LIPID PANEL (STL) Specimen Type: PLASMA Comment: No hemolysis noted. Ordering Provider: MANUEL BAIRD Report Released Date/Time: Mar 06, 2024 09:47 AM Reporting Lab: [facility] [address] [facility] [address] Performing Lab: [place] [address] [facility] [address] CHOLESTEROL 161 mg/dL 0-200 TRIGLYCERIDE 119 mg/dL 0-150 CALCULATED LDL 107 mg/dL HDL(New) 30 mg/dL L >40 Mar 06, 2024 09:52 AM [facility] PROST. SPECIFIC AG.(PB-STL) Specimen Type: SERUM Comment: The listed sex of this patient may not be a typical indication for this test. Therefore, reference ranges or interpretive criteria listed may not be valid. Clinical correlation suggested. Ordering Provider: MANUEL BAIRD Report Released Date/Time: Mar 06, 2024 09:47 AM Reporting Lab: [place] [address] [facility] [address] Performing Lab: [place] [address] [facility] [address] PROST. SPECIFIC AG.(PB-STL) 0.919 ng/mL 0-4 Mar 06, 2024 09:52 AM [facility] TSH (MA-PB) Specimen Type: SERUM Comment: The listed sex of this patient may not be a typical indication for this test. Therefore, reference ranges or interpretive criteria listed may not be valid. Clinical correlation suggested. Ordering Provider: MANUEL BAIRD Report Released Date/Time: Mar 06, 2024 09:47 AM Reporting Lab: [place] [address] [facility] [address] Performing Lab: [place] [address] [facility] [address] TSH 2.984 u[IU]/mL 0.47-5 Mar 06, 2024 09:52 AM [facility] COMPREHENSIVE METABOLIC PANEL Specimen Type: PLASMA Comment: No hemolysis noted. Ordering Provider: MANUEL BAIRD Report Released Date/Time: Mar 06, 2024 09:47 AM Reporting Lab: [address] [address] Performing Lab: [address] [address] CREATININE 0.87 mg/dL 0.7-1.3 UREA NITROGEN 14.7 mg/dL 9.0-25.0 GLUCOSE 128 mg/dL H 72-99 SODIUM 140 meq/L 136-145 POTASSIUM 4.3 meq/L 3.5-5 CHLORIDE 109 meq/L H 98-107 CARBON DIOXIDE 22 meq/L 22-31 CALCIUM 9.1 mg/dL 8.4-10.4 PROTEIN 7.1 g/dL 6-8.6 ALBUMIN 3.8 g/dL 3.4-5 TOTAL BILIRUBIN 0.6 mg/dL 0.2-1.2 ALKALINE PHOSPHATASE 82 U/L 40-150 AST/SGOT 47 U/L H 5-34 ALT/SGPT 45 U/L H 8-40 EGFR (CKD-EPI 2020) 92.3 >60 Mar 06, 2024 09:52 AM [facility] CBC Specimen Type: BLOOD No comment entered. Ordering Provider: MANUEL BAIRD Report Released Date/Time: Mar 06, 2024 09:47 AM Reporting Lab: [facility] [address] [facility] [address] Performing Lab: [address] [address] WBC 4.4 10*3/uL 3.6-11.2 RBC 5.19 10*6/uL 4.10-5.70 HGB 14.7 g/dL 13.1-16.8 HCT 43.7 38.2-48.4 MCV 84.2 fL 80.0-100.0 MCH 28.3 pg 27.0-34.0 MCHC 33.6 g/dL 33.0-36.0 PLT 110 10*3/uL L 150-400 MPV 9.3 fL 7.5-11.2 RDW 13.4 11.8-15.1 LYMPHOCYTES, AUTO % 28 MONOCYTES, AUTO % 9 NEUTROPHILS, AUTO % 54 EOSINOPHILS, AUTO % 7 BASOPHILS, AUTO % 1 LYMPHOCYTES, ABSOLUTE 1.26 10*3/uL 0.77-4.50 MONOCYTES, ABSOLUTE 0.40 10*3/uL 0.19-0.80 NEUTROPHILS, ABSOLUTE 2.39 10*3/uL 2.10-8.00 EOSINOPHILS, ABSOLUTE 0.30 10*3/uL 0.00-0.60 BASOPHILS, ABSOLUTE 0.05 10*3/uL 0.00-0.20 IMMATURE PLT FRACTION 1.6 1.0-7.0 PAPPENHEIMER BODIES 0 PLT EST-CV DECREASED ADEQUATE NORMRBC Yes SCRNPERF YES Social History: Smoking Status (Most current) and [...] QUIT TOBACCO >[address] [facility] Tobacco Use History This section includes a history of the smoking, or tobacco-related health factors, that were collected on or before the date of the Encounter. The data comes from the [place] facility where the Encounter took place. Date/Time Smoking Status/Tobacco Use Comment Juan acility Sep 30, 2015 10:12 AM QUIT TOBACCO >[address] [facility] Oct 29, 2014 10:23 AM QUIT TOBACCO >[address] [facility] Dec 27, 2013 01:27 PM QUIT TOBACCO >[address] [facility] Feb 24, 2013 02:01 PM LIFETIME NON-USER OF TOBACCO [facility] Feb 11, 2009 10:09 AM QUIT TOBACCO >[address] [facility] Oct 06, 2006 09:30 AM CURRENT NON-TOBACC O USER-HX OF USE [facility] Oct 06, 2006 09:30 AM TOBACCO TERMINATION STAGE [facility] Advance Directives: All historical and current Section Date Range: From patient's date of to the date document was created. This section includes ALL of a patient's completed or amended [place] Advance and Rescinded Directives. The entries below indicate that a directive exists for the patient, but an actual copy is not included with this document. The data comes from all [place] facilities. Date Advance Directives Provider Source Jan 19, 2017 ADVANCE DIRECTIVE DISCUSSION ERICK BARDALES [facility] Radiology Reports: +/- 30 days [...] E W/BLOOD FLOW DOPPLER (STL): CHET WALKER [id number] -[id number] M Exm Date: MARCH 15, 2024@08:01 Req Phys: MANUEL BAIRD Loc: [facility]-MAN PACT STAR RES 4 (Req'g Img Loc: [facility]-ULTRASOUND [facility] Service: Unknown [facility] [address] [place] [address] (Case [id number] COMPLETE) US ABDOMEN COMPLETE REDUCE SERVIC(US Detailed) CPT:02629 CPT Modifiers : 52 REDUCED SERVICES Reason for Study: thrombocytopenia, please check liver and spleen. (Case [id number] COMPLETE) US BLOOD FLOW ABD/RENAL DOPPLER ((US Detailed) CPT:40202 Clinical History: Report Status: Verified Date Reported: MARCH 15, 2024 Date Verified: MARCH 15, 2024 Product Support Consultant E-Sig:/ES/YESICA LOWERY MD Report: US ABDOMEN COMPLETE REDUCE SERVICE, US BLOOD FLOW ABD/RENAL DOPPLER (COMPLETE) [id number], [id number] DATE: 03/15/2024 8:01 AM EXAM: ABDOMINAL ULTRASOUND [id number], [id number] HISTORY: thrombocytopenia, please check liver and spleen. [...] Interpreting Staff: YESICA LOWERY MD, STAFF RADIOLOGIST (Product Support Consultant) Primary Interpreting Resident: Flory Guzman MD, Resident Physician /[facility] Encounter Notes: All associated encounter notes This section contains the clinical notes associated to the Encounter. Date/Time Encounter Note(s) Provider Source March 21, 2024 08:10 AM PHYSICAL MEDICINE REHAB NOTE: LOCAL TITLE: PT DAILY STL STANDARD TITLE: PHYSICAL MEDICINE REHAB NOTE DATE OF NOTE: MARCH 21, 2024@08:10 ENTRY DATE: MARCH 21, 2024@08:10:06 AUTHOR: CHELSIE BILLINGS EXP COSIGNER: URGENCY: STATUS: [...] be rendered on an OUTPATIENT basis Place: Tester/Lift Trucker's choice Urgency: Routine Clinically Ind. Date: Feb 02, 2024 DST ID: Orderable Item: PT OUTPT STL Consult: Consult Request Provisional Diagnosis: Spinal stenosis, lumbar region with neurogenic claudication(ICD-10-CM M48.062) Reason For Request: Physical Therapy Outpatient Consul Chart Review: [facility]: Chart Review: Imaging: --------- Primary provider:Mazin Start of Care:02/28/24 Reevaluation due:03/29/24 POC through:05/08/24 Visits to date: 3 No shows/cancellations: 0 Treatment time: 40 mins. Therapeutic exercise: 15 mins. Self mgmt 15 Gait: 10 mins Subjective: Arrives using SPC. Patient has been woriking on home exercises. Pain is 0/10 seated and up to 10/10 with longer bouts of walking, and long bouts of standing: doing dishes or cooking. Worried about cause of dyspnea. States that doctors are trying to figure it out. INIITIAL SUBJECTIVE: Pt reports he just completed [...] supine to sitting: sit <-> stand: OBJECTIVE: VITALS: Following 3.5 min walk BP: 187/81 mmHg HR: 60 2 min recover: BP: 154/89 HR: 60 INITIAL EVALUATION OBJECTIVE MEASURES Modified Low Back Disability Questionnaire: 0%-20%=minimal disability 20%-40%=moderate disability 40%-60%=severe disability 60%-80%:= crippled 80%-100%=bedbound Assistive Device:SPC, F22 Cognition: Pt. is alert and oriented. Pt. is appropriate in conversation and answers questions directly. Posture: Lumbar Spine: [x] Decreased [] Increased Other: Pelvis: [] Anterior [x]Posterior [] Neutral [] Rotated PSIS: MMT: Illiopsoas: 5/5 Gluts: 4-/5 Movement Examination Tests: -Standing Hip flex +rotation -Single Leg stance 3sec bilateral -Partial Squat -Forward Bend: 50% --Seated Hip Flex: --Seated Knee Extension: -Rotation right : WFL -Rotation left : WFL -Trunk extension WFL * = indicates movement was painful Supine: -Lower Abdominal MMT: Right Left -Hip Flexor Length Test: TFL: Rectus Femoris: Iliopsoas: tight tight 90/90 Hamstring: tight tight - Bent Knee Fall Out: Short Performance Physical Battery: BALANCE 1 point if can peform Side by Side: (10sec) __1 _ Semi Tandem (10seconds) __1 __ Tandem Stance (10seconds, 2pts if completed 1 pt if 3-9 sec)__2 __ STRENGTH: 5 Times Sit to Stand (4 pts: <11.19sec; 3pts:11.2-13.7; 2pts: 13.7-16.7, 1pts: > 16.7sec, 0pts >60seconds) 5 Times Sit to stand 17seconds Score: 1pt GAIT SPEED: 4 meters: 4pts <4.82sec; 3pts 4.8-6.2sec; 2pts 6.2-8.7 1pts > 8.7sec Score: 2pts (7s without device) TOTAL SCORE:7/12pts NORMS: Community Dwelling Older Adults (Leah Mcdaniel, Matthew et al 2016) Fallers : 8.2 Non Fallers: 9.5 Men: 10.4 Women: 9.7 Treatment: Therapeutic exercise: 30 mins. -10 min warm up on Nustep at level 4. Pt was instructed in and demonstrated independence with current HEP x 1 including: Access Code: [email or web address] URL: [email or web address] Date: 02/28/2024 Prepared by: Dons Exercises - [...] weekly - 4 sets - 20 reps ADDED TO HEP WITH PRINOUT AND INSRUCTRION -chin tucks 10 reps, x 3 sets, daily -scapular retraction, 10 reps x 3 sets, daily -wall hip flexor stretch, 4 reps, bilaterally 30 sec hold, daily. -Seated sciatic nerve glide, 10 reps, daily. Gait: 10 mins. Patient amb 350 feet with F-22 rollator in 8 mins., 290 feet in 6 mins. Patient instructed to walk at a comfortable pace and use paced breathing. Rerports 6/10 on dyspnea scale, an improvement over last visit. Patient will continue with walking program to increase distance and tolerance for activity. Assessment: Patient is motivated but very weak. Responds well to NuStep. Improved ambulation with decreased dyspnea today. INITIAL ASSESSMENT: Pt. would benefit from PT to address LE weakness, balance realted to polyneuropathy and deconditioning. He reports he has been very sedentary, but would like to get back to walking because he loves to fish and he needs to be able to walk along the bank to fish. He would benefit from skilled PT to work on LE strengthening, back pain and balance. HE agreed to this POC. Goals: Short term: 3-4 weeks 1) Pt. will demonstrate independence with current HEP x 1 2) Pt. will report pain at worst 6/10 3) Pt. to demonstrate independence with proper sitting and sleeping postures half-way: 1) Pt to demonstrate independence with final HEP x 1 2 ) Pt. to report pain at worst 5/10 3) Pt. to improve >MDC on the SPPB indicating improved balance and strength Equipment: Plan: Cont. PT 1X/wk. for up to 6 -8 visits to work on LE strengthening and endurnace and reudcing fall risk. /shen/ CHELSIE BILLINGS PTA Physical Therapist Media Relations Specialist Signed: 03/21/2024 12:28 CHELSIE BILLINGS [facility]
--- OUTSIDE RECORDS SUMMARY | 2024-11-17 03:47 | XMS_ITS | Encounter Summary ---
Author Name [facility] [place] [facility] [facility] [place] Address [address] [place] [address] Care Team Providers Care Armhole Presser Name Role Phone MANUEL BAIRD Primary [...] PART A Apr 08, 2017 PART A [id number] ASHLEY WALKER PATIENT Selected Encounter This section includes the information on record at [place] for the Encounter. 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 Date/Time Primary/Secondary Diagnosis Diagnosis Name Provider Source March 16, 2024 09:56 AM PRIMARY Type 2 diabetes w diabetic autonomic (poly)neuropathy REED COLLADO [facility] March 16, 2024 09:56 AM SECONDARY Essential (primary) hypertension REED COLLADO [facility] March 16, 2024 09:56 AM SECONDARY Hyperlipidemia, unspecified TOBIASREED LLAMAS [facility] Plan of Treatment: Future Appointments (+ 6 months) and Future Tests (+/- 45 days) The Plan of Treatment section includes future care activities for the [facility] This section includes future appointments and future orders which are active, pending or scheduled. Future Appointments This section includes appointments that were scheduled to occur 6 months from the date of the Encounter, up to a maximum of 20 appointments. The data comes from all [facility]. Appointment Date/Time Appointment Type Appointme nt Facility Name March 20, 2024 09:30 AM AMBULATORY - MEDICINE [facility] March 21, 2024 09:30 AM AMBULATORY - REHAB MEDICIN E [facility] March 27, 2024 08:30 AM AMBULATORY - NONE [facility] March 28, 2024 10:00 AM AMBULATORY - REHAB MEDICIN E [facility] April 04, 2024 09:30 AM AMBULATORY - REHAB MEDICIN E [facility] April 07, 2024 10:15 AM AMBULATORY - MEDICINE [facility] Apr 11, 2024 09:30 AM AMBULATORY - REHAB MEDICIN E [facility] Apr 18, 2024 02:00 PM AMBULATORY - NONE [facility] Apr 20, 2024 10:30 AM AMBULATORY - REHAB MEDICIN E [facility] Apr 21, 2024 11:00 AM AMBULATORY - MEDICINE [facility] 2024 10:00 AM AMBULATORY - MEDICINE [facility] May 02, 2024 10:00 AM AMBULATORY - SURGERY [facility] May 04, 2024 10:30 AM AMBULATORY - REHAB MEDICIN E [facility] May 12, 2024 10:30 AM AMBULATORY - SURGERY [facility] May 17, 2024 09:00 AM AMBULATORY - MEDICINE [facility] May 18, 2024 10:30 AM AMBULATORY - REHAB MEDICIN E [facility] May 31, 2024 02:00 PM AMBULATORY - SURGERY [facility] Julián JOLLEY [facility] Jun 05, 2024 08:40 AM AMBULATORY - NONE [facility] Hirsch [facility] Jun 07, 2024 12:30 PM AMBULATORY - MEDICINE [facility] Jun 07, 2024 01:30 PM [facility] Active, Pending, and Scheduled Orders [...] Date/Time Test Type Test Details Facility Name Feb 02, 2024 12:00 AM Laboratory - Chemi stry Order OCCULT BLOOD FIT X1 SCREEN STOOL FECES [facility] March 20, 2024 12:36 PM Consult Order [facility] DENTAL SPEC Cons Final Inspector's Choice [facility] April 07, 2024 12:00 AM Laboratory - Chemi stry Order OCCULT BLOOD FIT X1 SCREEN STOOL FECES [facility] Lab Results: +/- 30 days of [...] April 07, 2024 11:40 AM [facility] HIV COMBO FOURTH GENERATION (STL) Specimen Type: SERUM No comment entered. Ordering Provider: JAYNE OQUENDO Report Released Date/Time: April 07, 2024 10:44 AM Reporting Lab: [facility] [address] [facility] [phone] Performing Lab: [facility] [address] [facility] [phone] HIV COMBO FOURTH GENERATION (STL) Nonreactive Nonreactive April 07, 2024 11:40 AM [facility] PT/INR NEW (STL-MA) Specimen Type: PLASMA No comment entered. Ordering Provider: JAYNE OQUENDO Report Released Date/Time: April 07, 2024 10:44 AM Reporting Lab: [facility] [address] [place] [phone] Performing Lab: [facility] [address] [place] [phone] PROTIME 13.0 s H 9.4-12.5 INR VALUE 1.2 {INR} April 07, 2024 11:40 AM [facility] HEP C Ab HCV Ab (RUST) Specimen Type: SERUM No comment entered. Ordering Provider: JAYNE OQUENDO Report Released Date/Time: April 07, 2024 10:44 AM Reporting Lab: [address] [phone] Performing Lab: [address] [address] HEP C Ab HCV Ab (L) Nonreactive Nonreactive April 07, 2024 11:40 AM [facility] LIPID PANEL (RUST) Specimen Type: PLASMA No comment entered. Ordering Provider: JAYNE OQUENDO Report Released Date/Time: April 07, 2024 11:14 AM Reporting Lab: [facility] [address] [place] [phone] Performing Lab: [address] [address] CHOLESTEROL 180 mg/dL 0-200 TRIGLYCERIDE 145 mg/dL 0-150 CALCULATED LDL 117 mg/dL HDL(New) 34 mg/dL L >40 April 07, 2024 11:40 AM [facility] CBC Specimen Type: BLOOD Comment: No clots Ordering Provider: JAYNE OQUENDO Report Released Date/Time: April 07, 2024 10:44 AM Reporting Lab: [facility] [address] [place] [phone] Performing Lab: [address] [address] WBC 4.4 10*3/uL 3.6-11.2 RBC 5.01 10*6/uL [...] April 07, 2024 10:01 AM [facility] GLUCOSE,BLOOD-poct (STL) Specimen Type: BLOOD Comment: Test Performed by: [id number] Meter #: [id number] Ordering Provider: MANUEL BAIRD Report Released Date/Time: April 07, 2024 02:51 PM Reporting Lab: [address] [phone] Performing Lab: [address] [address] GLUCOSE,BLOOD- poct (STL) 206 mg/dL H 72-99 Mar 06, 2024 10:03 AM [facility] MICRAL/CREAT PROFILE (STL) Specimen Type: URINE No comment entered. Ordering Provider: MANUEL BAIRD Report Released Date/Time: Mar 06, 2024 09:47 AM Reporting Lab: [facility] [address] [facility] [phone] Performing Lab: [facility] [address] [facility] [address] URINE ALBUMIN (PB-STL) 114.8 mg/L uACR (STL) 59 mg/g H 0-29 CREATININE URINE/OTHERS 193.6 mg/dL H 63-166 Mar 06, 2024 09:52 AM [facility] HGA1C Specimen Type: BLOOD No comment entered. Ordering Provider: MANUEL BAIRD Report Released Date/Time: Mar 06, 2024 09:47 AM Reporting Lab: [facility] [address] [place] [phone] Performing Lab: [address] [address] HGA1C 7.0 H 4.0-6.0 Mar 06, 2024 09:52 AM [facility] LIPID PANEL (STL) Specimen Type: PLASMA Comment: No hemolysis noted. Ordering Provider: MANUEL BAIRD Report Released Date/Time: Mar 06, 2024 09:47 AM Reporting Lab: [facility] [address] [place] [phone] Performing Lab: [address] [address] CHOLESTEROL 161 mg/dL 0-200 TRIGLYCERIDE 119 mg/dL 0-150 CALCULATED LDL 107 mg/dL HDL(New) 30 mg/dL L >40 Mar 06, 2024 09:52 AM [facility] PROST. SPECIFIC AG.(PB-STL) Specimen Type: SERUM Comment: The listed sex of this patient may not be a typical indication for this test. Therefore, reference ranges or interpretive criteria listed may not be valid. Clinical correlation suggested. Ordering Provider: MANUEL BAIRD Report Released Date/Time: Mar 06, 2024 09:47 AM Reporting Lab: [facility] [address] [place] [phone] Performing Lab: [address] [phone] PROST. SPECIFIC AG.(PB-STL) 0.919 ng/mL 0-4 Mar 06, 2024 09:52 AM [facility] COMPREHENSIVE METABOLIC PANEL Specimen Type: PLASMA Comment: No hemolysis noted. Ordering Provider: MANUEL BAIRD Report Released Date/Time: Mar 06, 2024 09:47 AM Reporting Lab: [facility] [address] [facility] [phone] Performing Lab: [facility] [address] [facility] [phone] CREATININE 0.87 mg/dL 0.7-1.3 UREA NITROGEN 14.7 [...] 92.3 >60 Mar 06, 2024 09:52 AM [facility] TSH (MA-PB) Specimen Type: SERUM Comment: The listed sex of this patient may not be a typical indication for this test. Therefore, reference ranges or interpretive criteria listed may not be valid. Clinical correlation suggested. Ordering Provider: MANUEL BAIRD Report Released Date/Time: Mar 06, 2024 09:47 AM Reporting Lab: [facility] [address] [place] [phone] Performing Lab: [facility] [address] [facility] [phone] TSH 2.984 u[IU]/mL 0.47-5 Mar 06, 2024 09:52 AM [facility] CBC Specimen Type: BLOOD No comment entered. Ordering Provider: MANUEL BAIRD Report Released Date/Time: Mar 06, 2024 09:47 AM Reporting Lab: [facility] [address] [facility] [phone] Performing Lab: [facility] [address] [place] [phone] WBC 4.4 10*3/uL 3.6-11.2 RBC 5.19 10*6/uL [...] EST-CV DECREASED ADEQUATE NORMRBC Yes SCRNPERF YES Vital Signs: All taken on the encounter date This section contains inpatient and outpatient Vital Signs collected on the date of the Encounter. Date/Time Temperature Pulse Blood Pressure Respiratory Rate SP02 Pain Height Weight Body Mass Index Source March 16, 2024 09:30 AM 56 140/68 [facility] Social History: Smoking Status (Most current) and Tobacco Use (All prior to encounter date) This section includes the most current, and the historical, smoking and tobacco- related health factors from the [place] facility where the Encounter took place. Current Smoking Status This section includes the most current smoking, or tobacco-related health factor, from the [place] facility where the Encounter took place. Date/Time Current Smoking Status Comment Radhika goins March 16, 2024 09:30 AM VA-TOBACCO FORMER USER [facility] Tobacco Use History This section includes a history of the smoking, or tobacco-related health factors, that were collected on or before the date of the Encounter. The data comes from the [place] facility where the Encounter took place. Date/Time Smoking Status/Tobacco Use Comment F acility March 16, 2024 09:30 AM VA-TOBACCO QUIT 15 YRS OR MORE [facility] March 22, 2023 10:00 AM VA-TOBACCO FORMER USER [facility] March 22, 2023 10:00 AM VA-TOBACCO QUIT 15 YRS OR MORE [facility] Jan 29, 2022 03:00 PM VA-TOBACCO FORMER USER [facility] Jan 29, 2022 03:00 PM VA-TOBACCO QUIT 15 YRS OR MORE [facility] Feb 07, 2019 04:17 PM VA-TOBACCO FORMER USER [facility] Feb 07, 2019 04:17 PM VA-TOBACCO QUIT 15 YRS OR MORE [facility] March 09, 2018 12:36 PM QUIT TOBACCO >7 YEARS AGO [facility] Aug 05, 2017 02:36 PM QUIT TOBACCO >7 YEARS AGO [facility] Advance Directives: All historical and current Section Date Range: From patient's date of to the date document was created. This section includes ALL of a patient's completed or amended [place] Advance and Rescinded Directives. The entries below indicate that a directive exists for the patient, but an actual copy is not included with this document. The data comes from all [facility]. Date Advance Directives Provider Source Jan 19, 2017 ADVANCE DIRECTIVE DISCUSSION ERICK BARDALES [facility] Radiology Reports: +/- 30 days [...] the Encounter. The data comes from all [place] treatment facilities. Date/Time Radiology Report Provider Source March 15, 2024 08:01 AM US ABDOMEN COMPLET E W/BLOOD FLOW DOPPLER (STL): CHET WALKER DUSTIN [id number] [id number] Exm Date: MARCH 15, 2024@08:01 Req Phys: MANUEL BAIRD Loc: [facility]-MAN PACT STAR RES 4 (Req'g Img Loc: [facility]ASH-ULTRASOUND Y[facility] Service: [facility], [facility] [address] [place] [phone] (Case [id number] COMPLETE) US ABDOMEN COMPLETE REDUCE SERVIC(US Detailed) CPT:68574 CPT Modifiers : 52 REDUCED SERVICES Reason for Study: thrombocytopenia, please check liver and spleen. (Case [id number] COMPLETE) US BLOOD FLOW ABD/RENAL DOPPLER ((US Detailed) CPT:18097 Clinical History: Report Status: Verified Date Reported: MARCH 15, 2024 Date Verified: MARCH 15, 2024 Casino Operations Supervisor E-Sig:/ES/YESICA LOWERY MD Report: US ABDOMEN COMPLETE REDUCE SERVICE, US BLOOD FLOW ABD/RENAL DOPPLER (COMPLETE) [id number], [id number] DATE: 03/15/2024 8:01 AM EXAM: ABDOMINAL ULTRASOUND [id number], [id number] HISTORY: thrombocytopenia, please check liver and spleen. [...] Interpreting Staff: YESICA LOWERY MD, STAFF RADIOLOGIST (Casino Operations Supervisor) Primary Interpreting Resident: Flory Guzman MD, Resident Physician /YESICA SALGUERO [facility] Encounter Notes: All associated encounter notes This section contains the clinical notes associated to the Encounter. Date/Time Encounter Note(s) Provider Source March 16, 2024 09:30 AM INTERNAL MEDICINE CLINICAL PHARMACIST MEDICATION MGT NOTE: LOCAL TITLE: CLINICAL PHARMACIST NOTE ST STANDARD TITLE: INTERNAL MEDICINE CLINICAL PHARMACIST MEDICATION DATE OF NOTE: MARCH 16, 2024@09:30 ENTRY DATE: MARCH 16, 2024@09:30:16 AUTHOR: REED COLLADO COSIGNER: URGENCY: STATUS: COMPLETED CLINICAL PHARMACY FOLLOW-UP Subjective: CHET WALKER is a 73 MALE who presents to clinic for follow up on DM. PMH: 1) Asthma (SNOMED CT 565309156) 2) Gastro-esophageal reflux disease (SNOMED CT 358775313) 3) Peptic Ulcer Disease * (ICD-9-CM 533.90) 4) Hypertension (SNOMED CT 38556037) 5) Pituitary Neoplasms (ICD-9-CM 194.3) 6) Hyperlipidemia (SNOMED CT 61882426) 7) Erectile dysfunction associated with type 2 diabetes mellitus 8) Osteoarthritis of knee 9) Diabetes mellitus with neuropathy 10) Low back pain 11) Obesity 12) Patellofemoral syndrome of right knee 13) History of left total knee replacement 14) History of arthroplasty of right knee 15) Exposure to potentially hazardous substance During the last contact with vet, the following changes were made: --no changes During current visit: If glucose in the 80-90s he snacks before bed, grapes or something to eat. 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 SHAKE WELL. RINSE MOUTHPIECE FREQUENTLY TO PREVENT CLOGGING. uses as needed 3) AMMONIUM LACTATE 12% CREAM APPLY LIGHTLY [...] AFTER 42 DAYS. *HIGH DOSE INSULIN* 10) LIDOCAINE 5% PATCH APPLY 1 PATCH TO SKIN SITE ONCE A ACTIVE DAY NEEDED FOR LOCAL ANESTHESIA APPLY PATCH AND PRESS FIRMLY FOR 10-15 SECONDS. KEEP ON FOR 12 HOURS THEN REMOVE PATCH FOR 12 HOURS. 11) MELOXICAM 7.5MG TAB TAKE ONE TABLET BY MOUTH ONCE A ACTIVE DAY NEEDED FOR OSTEOARTHRITIS holding per PCP request 12) METFORMIN HCL 500MG 24HR SA TAB TAKE TWO TABLETS BY ACTIVE MOUTH TWICE A DAY FOR BLOOD SUGAR CONTROL. TAKE WITH FOOD. AVOID ALCOHOL. DISCONTINUE BEFORE GETTING XRAY DYE. 13) METHOCARBAMOL 500MG TAB TAKE 1 TABLET BY MOUTH TWICE ACTIVE DAILY NEEDED FOR MUSCLE SPASM uses as needed 14) MULTIVITAMIN CAP/TAB TAKE 1 TABLET BY MOUTH ONCE A ACTIVE DAY FOR NUTRITION/DIETARY SUPPLEMENTATION 15) OMEPRAZOLE 20MG EC CAP TAKE ONE CAPSULE BY MOUTH ACTIVE EVERY MORNING TO LOWER STOMACH ACID. TAKE 30 MINUTES PRIOR TO FOOD. 16) PREGABALIN 200MG ORAL CAP TAKE ONE CAPSULE BY MOUTH ACTIVE TWICE A DAY 17) SEMAGLUTIDE 1MG/0.75ML INJ PEN 3ML INJECT 1MG UNDER ACTIVE THE SKIN EVERY WEEK FOR DIABETES Active Non-VA Medications Status 1) Non-VA NAPROXEN NA 220MG TAB 220MG BY MOUTH ACTIVE NEEDED as needed rec HOLD as well bc holding meloxicam OTC/Non-VA meds: as above Medication reconciliation completed: YES Adherence to above medications: YES Refills/renewals needed: none Labs: CMP: SODIUM 140 mEq/L 03/06/2024 09:52 [...] 03/06/2024 09:52 Estimated CrCl mL/min FLP: TRIGLYCERIDE 119 mg/dL 03/06/2024 09:52 CHOLESTEROL 161 mg/dL 03/06/2024 09:52 HDL(New) 30 L mg/dL 03/06/2024 09:52 CALCULATED LDL 107 mg/dL 03/06/2024 09:52 MICRAL/CR PROFILE: CREATuF: 193.6 (03/06/24 10:03) M/CREAT: 59 (03/06/24 10:03) MICRAL: 114.8 (03/06/24 10:03) A1c: HGA1C 7.0 H % 03/06/2024 09:52 TSH: TSH 2.984 uIU/mL 03/06/2024 09:52 Vitamin D: No VITAMIN D 25 HYDROXY EO data found Self-Monitoring of Blood Glucose (SMBG): MeBeam Personal - Glucose Pattern Summary 14 days 14 day info Avg Glucose: 144 12am-6am 153 6am-12pm 127 12pm-6pm 142 6pm-12am 153 Time in Target: Above 180 mg/dL: 17% In Target Range (70-180 mg/dL): 83% Below 70 mg/dL: 0% Sensor Usage: 96% Daily scans: 38 low glucose events total 0 12am-6am 6am-12pm 12pm-6pm 6pm-12am GOALS Time in Range: HIgh risk and OLDer Above 250 mg/dL: <10% Above 180 mg/dL: <50% In Target Range (70-180 mg/dL): >50% Below 70 mg/dL: <1% Below 54 mg/dL: NONE %CV <=36% BP last visit:130/68 (02/17/2024 11:55) Pulse last visit: 84 (02/17/2024 12:10) Manual BP seated, rested: 140/68 mmHg Pulse: 56 bpm Assessment/Plan: 1) Diabetes Goal A1c <7-8%, FBG 80-130, post-prandial BG <180, per [place]/DoD guidelines --Controlled per recent A1c. Pretty shows TIR and average glucose at goals. One lower readings but ant recall why. Reports will eat a snack before bed if PM reading s80-90 range, not a freq occurrence. Tolerating medications --Continue metformin SA 500mg 2 tabs BID , GFR >60 --Continue semaglutide 1mg once a week. --Continue Toujeo 300 units/ml 90 units daily --Continue aspart 6 units before dinner. -Avoiding SGLT2 due to h/o genital fungal infections --Instructed vet to check SMBGs using pretty --Educated vet on hypoglycemia symptoms and appropriate treatment and when to call clinic or go to emergency room. Call for lows <70. 2) Lipids - Goal is treatment with moderate-intensity statin per VADoD guidelines; moderate to high-intensity statin per ACC/AHA guidelines. --CCT 3) HTN - <130/80 mmHg per 2017 AHA guidelines; <140/90 >60 + DM per VADoD guidelines. --Controlled just to goal, CCT - Instructed vet to call CP if [...] to vet's satisfaction. Time spent with vet: 25 minutes RTC: 6 weeks (Pt advised to stop at dental front office assistant to schedule follow up appointment) med rec reminder not available Alcohol Use Screen (AUDIT-C): Alcohol Screen: SCREEN FOR ALCOHOL (AUDIT-C) An alcohol screening test (AUDIT-C) was negative (score=2). 1. How often did you have a drink containing alcohol in the past year? Consider a drink to be a 12 ounce can or bottle of regular beer, 8 ounces of malt liquor, a 5 ounce glass of table wine, or a 1.5 ounce shot of liquor (like scotch, gin, or vodka). Two to four times a month 2. How many drinks containing alcohol did you have on a typical day when you were drinking in the past year? One or two drinks 3. How often did you have six or more drinks on one occasion in the past year? Never Tobacco Use Screening: The patient is a former tobacco user. The patient quit fifteen or more years ago. PBM PharmD Pharmacotherapy Rem V12: PHARMACIST INTERVENTIONS: [...] made (medication review completed, no discrepancies identified) /shen/ REED COLLADO PHARM.D., [facility] CLINICAL PHARMACIST Signed: 03/16/2024 11:04 REED COLLADO [facility]
--- OUTSIDE RECORDS SUMMARY | 2024-11-17 03:47 | XMS_ITS | Encounter Summary ---
Author Name [facility] [place] [facility] [place] Address [address] [place] [address] Care Team Providers Care Reserve Operator Name Role Phone MANUEL BAIRD Primary [...] PART A Apr 08, 2017 PART A [id number] [phone] ASHLEY WALKER PATIENT Selected Encounter This section includes the information on record at [place] for the Encounter. Date/Time Encounter Type Encounter Description Reason Provider Source Mar 06, 2024 11:00 AM SELF CARE MNGMENT TRAINING PHYSICAL THERAPY ICD-10-CM M48.062 Spinal stenosis, lumbar region with neurogenic claudication ABEBE TORRES Encounter Template Text not used by [facility] Assessments - Encounter Diagnoses This section includes the primary and secondary diagnoses documented for the Encounter. Date/Time Primary/Secondary Diagnosis Diagnosis Name Provider Source Mar 06, 2024 03:54 PM PRIMARY Spinal stenosis, lumbar region with neurogenic claudication JIMBO,CHELSIE C [facility] Plan of Treatment: Future Appointments (+ 6 months) and Future Tests (+/- 45 days) The Plan of Treatment section includes future care activities for the [facility] [place] [facility] This section includes future appointments and future orders which are active, pending or scheduled. Future Appointments This section includes appointments that were scheduled to occur 6 months from the date of the Encounter, up to a maximum of 20 appointments. The data comes from all [facility]. Appointment Date/Time Appointment Type Appointme nt Facility Name March 15, 2024 09:00 AM AMBULATORY - NONE [facility] March 16, 2024 09:30 AM AMBULATORY - MEDICINE [facility] March 20, 2024 09:30 AM AMBULATORY - MEDICINE [facility] March 21, 2024 09:30 AM AMBULATORY - REHAB MEDICIN [facility] March 27, 2024 08:30 AM AMBULATORY - NONE [facility] March 28, 2024 10:00 AM AMBULATORY - REHAB MEDICIN E [facility] April 04, 2024 09:30 AM AMBULATORY - REHAB MEDICIN E [facility] April 07, 2024 10:15 AM AMBULATORY - MEDICINE [facility] Apr 11, 2024 09:30 AM AMBULATORY - REHAB MEDICIN E [facility] Apr 18, 2024 02:00 PM AMBULATORY - NONE [facility] Apr 20, 2024 10:30 AM AMBULATORY - REHAB MEDICIN E [facility] Apr 21, 2024 11:00 AM AMBULATORY - MEDICINE [facility] 2024 10:00 AM AMBULATORY - MEDICINE [facility] May 02, 2024 10:00 AM AMBULATORY - SURGERY [facility] May 04, 2024 10:30 AM AMBULATORY - REHAB MEDICIN E [facility] May 12, 2024 10:30 AM AMBULATORY - SURGERY [facility] May 17, 2024 09:00 AM AMBULATORY - MEDICINE [facility] May 18, 2024 10:30 AM AMBULATORY - REHAB MEDICIN E [facility] May 31, 2024 02:00 PM AMBULATORY - SURGERY . Julián [facility] Jun 05, 2024 08:40 AM AMBULATORY - NONE [facility] Active, Pending, and Scheduled Orders This section [...] OCCULT BLOOD FIT X1 SCREEN STOOL FECES [facility] March 20, 2024 12:36 PM Consult Order COMM[facility]ITY [facility]-STL DENTAL SPEC Cons Basic Sciences Professor's Choice [facility] April 07, 2024 12:00 AM Laboratory - Chemi stry Order OCCULT BLOOD FIT X1 SCREEN STOOL FECES [facility] Lab Results: +/- 30 days of the [...] Result - Unit Interpretation Reference Range Comment Mar 06, 2024 10:03 AM [facility] MICRAL/CREAT PROFILE (STL) Specimen Type: URINE No comment entered. Ordering Provider: MANUEL BAIRD Report Released Date/Time: Mar 06, 2024 09:47 AM Reporting Lab: [facility] [address] [facility] [address] Performing Lab: [facility] [address] [facility] [address] URINE ALBUMIN (PB-STL) 114.8 mg/L uACR (STL) 59 mg/g H 0-29 CREATININE URINE/OTHERS 193.6 mg/dL H 63-166 Mar 06, 2024 09:52 AM [facility] HGA1C Specimen Type: BLOOD No comment entered. Ordering Provider: MANUEL BAIRD Report Released Date/Time: Mar 06, 2024 09:47 AM Reporting Lab: [facility] [address] [facility] [address] Performing Lab: [facility] [address] [facility] [address] HGA1C 7.0 H 4.0-6.0 Mar 06, 2024 09:52 AM [facility] LIPID PANEL (STL) Specimen Type: PLASMA Comment: No hemolysis noted. Ordering Provider: MANUEL BAIRD Report Released Date/Time: Mar 06, 2024 09:47 AM Reporting Lab: [address] [address] Performing Lab: [place] [address] [facility] [address] CHOLESTEROL 161 mg/dL 0-200 TRIGLYCERIDE 119 mg/dL 0-150 CALCULATED LDL 107 mg/dL HDL(New) 30 mg/dL L >40 Mar 06, 2024 09:52 AM [facility] PROST. SPECIFIC AG.(PB-STL) Specimen Type: SERUM Comment: The listed sex of this patient may not be a typical indication for this test. Therefore, reference ranges or interpretive criteria listed may not be valid. Clinical correlation suggested. Ordering Provider: MANUEL BAIRD Report Released Date/Time: Mar 06, 2024 09:47 AM Reporting Lab: [place] [address] [facility] [address] Performing Lab: [place] [address] [facility] [address] PROST. SPECIFIC AG.(PB-STL) 0.919 ng/mL 0-4 Mar 06, 2024 09:52 AM [facility] TSH (MA-PB) Specimen Type: SERUM Comment: The listed sex of this patient may not be a typical indication for this test. Therefore, reference ranges or interpretive criteria listed may not be valid. Clinical correlation suggested. Ordering Provider: MANUEL BAIRD Report Released Date/Time: Mar 06, 2024 09:47 AM Reporting Lab: [facility] [address] [facility] [address] Performing Lab: [facility] [address] [facility] [address] TSH 2.984 u[IU]/mL 0.47-5 Mar 06, 2024 09:52 AM [facility] COMPREHENSIVE METABOLIC PANEL Specimen Type: PLASMA Comment: No hemolysis noted. Ordering Provider: MANUEL BAIRD Report Released Date/Time: Mar 06, 2024 09:47 AM Reporting Lab: [facility] [address] [facility] [address] Performing Lab: [facility] [address] [place] [address] CREATININE 0.87 mg/dL 0.7-1.3 UREA NITROGEN 14.7 [...] 92.3 >60 Mar 06, 2024 09:52 AM [facility] CBC Specimen Type: BLOOD No comment entered. Ordering Provider: MANUEL BAIRD Report Released Date/Time: Mar 06, 2024 09:47 AM Reporting Lab: [facility] [address] [facility] [address] Performing Lab: [address] [address] WBC 4.4 10*3/uL 3.6-11.2 RBC 5.19 10*6/uL [...] 10:34 AM QUIT TOBACCO >7 YEARS AGO [facility] Tobacco Use History This section includes a history of the smoking, or tobacco-related health factors, that were collected on or before the date of the Encounter. The data comes from the [place] facility where the Encounter took place. Date/Time Smoking Status/Tobacco Use Comment Juan borden Sep 30, 2015 10:12 AM QUIT TOBACCO >7 YEARS AGO [facility] Oct 29, 2014 10:23 AM QUIT TOBACCO >7 YEARS AGO [facility] Dec 27, 2013 01:27 PM QUIT TOBACCO >7 YEARS AGO [facility] Feb 24, 2013 02:01 PM LIFETIME NON-USER OF TOBACCO [facility] Feb 11, 2009 10:09 AM QUIT TOBACCO >7 YEARS AGO [facility] Oct 06, 2006 09:30 AM CURRENT NON-TOBACC O USER-HX OF USE [facility] Oct 06, 2006 09:30 AM TOBACCO TERMINATION STAGE [facility] Advance Directives: All historical and [...] 19, 2017 ADVANCE DIRECTIVE DISCUSSION ERICK BARDALES [facility] Radiology Reports: +/- 30 days [...] US ABDOMEN COMPLET E W/BLOOD FLOW DOPPLER ([facility]): CHET WALKER [id number] [phone] M Ex Date: MARCH 15, 2024@08:01 Req Phys: MANUEL BAIRD Loc: [facility] PACT STAR RES 4 (Req'g Im Loc: [facility]-ULTRASOUND [facility] Service: Unknown [address] [address] (Case [id number] COMPLETE) US ABDOMEN COMPLETE REDUCE SERVIC(US Detailed) CPT:69644 CPT Modifiers : 52 REDUCED SERVICES Reason for Study: thrombocytopenia, please check liver and spleen. (Case [id number] COMPLETE) US BLOOD FLOW ABD/RENAL DOPPLER ((US Detailed) CPT:56537 Clinical History: Report Status: Verified Date Reported: MARCH 15, 2024 Date Verified: MARCH 15, 2024 Rehabilitation Counselor E-Sig:/ES/YESICA CORDOVA MD Report: US ABDOMEN COMPLETE REDUCE SERVICE, US BLOOD FLOW ABD/RENAL DOPPLER (COMPLETE) [id number], [id number] DATE: 03/15/2024 8:01 AM EXAM: ABDOMINAL ULTRASOUND [id number], [id number] HISTORY: thrombocytopenia, please check liver and spleen. [...] 2. Splenomegaly measuring 15.6 cm in length. I, Yesica Cordova, have reviewed the images and report and concur with these findings. Primary Interpreting Staff: YESICA CORDOVA MD, STAFF RADIOLOGIST (Rehabilitation Counselor) Primary Interpreting Resident: Flory Guzman MD, Resident Physician /[facility] Encounter Notes: All associated encounter notes This section contains the clinical notes associated to the Encounter. Date/Time Encounter Note(s) Provider Source Mar 06, 2024 08:11 AM PHYSICAL MEDICINE REHAB NOTE: LOCAL TITLE: PT DAILY STL STANDARD TITLE: PHYSICAL MEDICINE REHAB NOTE DATE OF NOTE: MAR 06, 2024@08:11 ENTRY DATE: MAR 06, 2024@08:12:02 AUTHOR: CHELSIE BILLINGS EXP COSIGNER: URGENCY: STATUS: COMPLETED PT DAILY STL Has ADDENDA Physical Therapy Daily Note Primary Therapist: Abebe [...] be rendered on an OUTPATIENT basis Place: Basic Sciences Professor's choice Urgency: Routine Clinically Ind. Date: Feb 02, 2024 DST ID: Orderable Item: PT OUTPT STL Consult: Consult Request Provisional Diagnosis: Spinal stenosis, lumbar region with neurogenic claudication(ICD-10-CM M48.062) Reason For Request: Physical Therapy Outpatient Consul Chart Review: [facility]: Chart Review: Imaging: --------- Primary provider:Mazin Start of Care:02/28/24 Reevaluation due:03/29/24 POC through:05/08/24 Visits to date: 2 No shows/cancellations: 0 Treatment time: 40 mins. [...] Fallers: 9.5 Men: 10.4 Women: 9.7 Treatment: Self Mgmt: x 10 mins. -how to begin a daily walking plan. Patient advised to use F-22 and build in 1 min increments as tolerated beginning with 3 min (current level of tolerance). -discussed the importance of daily stretching to control lower back pain. Therapeutic exercise: 15 mins. -10 min warm up on Nustep at level 3. Pt was instructed in and demonstrated independence with current HEP x 1 including: Access Code: [email or web address] URL: [email or web address] Date: 02/28/2024 Prepared by: Dons Exercises - [...] weekly - 4 sets - 20 reps Gait: 10 mins. Patient amb 600 feet with F-22 rollator in 3.5 mins. Patient requires a rest break with report of being 9/10 on dyspnea scale. Patient will begin walking program with 3 min as the baseline for duration. Assessment: Patient is motivated but very weak. Responds well to NuStep. DOA, especially ambulation. INITIAL ASSESSMENT: Pt. would benefit from PT [...] independence with proper sitting and sleeping postures termination clerk: 1) Pt to demonstrate independence with final HEP x 1 2 ) Pt. to report pain at worst 5/10 3) Pt. to improve >MDC on the SPPB indicating improved balance and strength Equipment: Plan: Cont. PT 1X/wk. for up to 6 -8 visits to work on LE strengthening and endurnace and reudcing fall risk. /shen/ CHELSIE BILLINGS PTA Physical Therapist Private Detective Signed: 03/06/2024 15:54 03/21/2024 ADDENDUM STATUS: COMPLETED Distance ambulated entered in error. Patient amb 250 feet in 3.5 mins. DOA. /shen/ CHELSIE BILLINGS PTA Physical Therapist Private Detective Signed: 03/21/2024 12:22 CHELSIE BILLINGS [facility]
--- OUTSIDE RECORDS SUMMARY | 2024-11-17 03:47 | XMS_ITS | Encounter Summary ---
Author Name [facility] [place] [facility] [place] [facility] [place] Address [address] [place] [address] Care Team Providers Care Torch Straightener And Heater Name Role Phone MANUEL BAIRD Primary Care [...] PART A Apr 08, 2017 PART A [id number] [phone] ASHLEY WALKER PATIENT Selected Encounter This section includes the information on record at [place] for the Encounter. Date/Time Encounter Type Encounter Description Reason Provider Source Feb 29, 2024 09:00 AM CLEAN/INSPECT CARLOS PART DENT DENTAL ICD-10-CM K03.6 Deposits [accretions] on teeth O JUNIOR LAZO Y IHE Encounter Template Text not used by [place] Assessments - Encounter Diagnoses This section includes the primary and secondary diagnoses documented for the Encounter. 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 This section includes future appointments and future orders which are active, pending or scheduled. Future Appointments This section includes appointments that were scheduled to occur 6 months from the date of the Encounter, up to a maximum of 20 appointments. The data comes from all [facility]. Appointment Date/Time Appointment Type Appointme nt Facility Name Mar 06, 2024 09:00 AM AMBULATORY - NONE [facility] Mar 06, 2024 11:00 AM AMBULATORY - REHAB [facility] March 15, 2024 09:00 AM AMBULATORY - NONE [facility] March 16, 2024 09:30 AM AMBULATORY - MEDICINE [facility] March 20, 2024 09:30 AM AMBULATORY - MEDICINE [facility] March 21, 2024 09:30 AM AMBULATORY - REHAB [facility]ICIN [facility] March 27, 2024 08:30 AM AMBULATORY - NONE [facility] March 28, 2024 10:00 AM AMBULATORY - REHAB [facility] April 04, 2024 09:30 AM AMBULATORY - REHAB [facility]ICIN [facility] April 07, 2024 10:15 AM AMBULATORY - MEDICINE [facility] Apr 11, 2024 09:30 AM AMBULATORY - REHAB [facility]IC[facility] Apr 18, 2024 02:00 PM AMBULATORY - NONE [facility] Apr 20, 2024 10:30 AM AMBULATORY - REHAB MEDICIN E [facility] Apr 21, 2024 11:00 AM AMBULATORY - MEDICINE [facility] 2024 10:00 AM AMBULATORY - MEDICINE [facility] May 02, 2024 10:00 AM AMBULATORY - SURGERY [facility] May 04, 2024 10:30 [facility] May 12, 2024 10:30 AM AMBULATORY - SURGERY [facility] May 17, 2024 09:00 AM AMBULATORY - MEDICINE [facility] May 18, 2024 10:30 AM AMBULATORY - REHAB MEDICIN [facility] Active, Pending, and [...] of theEncounter. The data comes from all [place] treatment facilities. Test Date/Time Test Type Test Details Facility Name Feb 02, 2024 12:00 AM Laboratory - Chemi stry Order OCCULT BLOOD FIT X1 SCREEN STOOL FECES [facility] March 20, 2024 12:36 PM Consult Order [facility] DENTAL SPEC Cons Front Office Developer's Choice [facility] April 07, 2024 12:00 AM Laboratory - Chemi [facility] Order OCCULT BLOOD FIT X1 SCREEN STOOL FECES [facility] Lab Results: +/- 30 days of [...] Range Comment Mar 06, 2024 10:[address] [facility] MICRAL/CREAT PROFILE (STL) Specimen Type: URINE No comment entered. Ordering Provider: MANUEL BAIRD Report Released Date/Time: Mar 06, 2024 09:47 AM Reporting Lab: [facility] [address] [place] [address] Performing Lab: [facility] [address] [facility] [address] URINE ALBUMIN (PB-STL) 114.8 mg/L uACR (STL) 59 mg/g H 0-29 CREATININE URINE/OTHERS 193.6 mg/dL H 63-166 Mar 06, 2024 09:[address] [facility] HGA1C Specimen Type: BLOOD No comment entered. Ordering Provider: MANUEL BAIRD Report Released Date/Time: Mar 06, 2024 09:47 AM Reporting Lab: [facility] [address] [place] [address] Performing Lab: [facility] [address] [place] [phone] HGA1C 7.0 H 4.0-6.0 Mar 06, 2024 09:[address] [facility] LIPID PANEL (STL) Specimen Type: PLASMA Comment: No hemolysis noted. Ordering Provider: MNAUEL BAIRD Report Released Date/Time: Mar 06, 2024 09:47 AM Reporting Lab: [facility] [address] [facility] [address] Performing Lab: [address] [address] CHOLESTEROL 161 mg/dL 0-200 TRIGLYCERIDE 119 mg/dL 0-150 CALCULATED LDL 107 mg/dL HDL(New) 30 mg/dL L >40 Mar 06, 2024 09:[address] [facility] PROST. SPECIFIC AG.(PB-STL) Specimen Type: SERUM Comment: The listed sex of this patient may not be a typical indication for this test. Therefore, reference ranges or interpretive criteria listed may not be valid. Clinical correlation suggested. Ordering Provider: MANUEL BAIRD Report Released Date/Time: Mar 06, 2024 09:47 AM Reporting Lab: [facility] [address] [place] [address] Performing Lab: [facility] [address] [place] [phone] PROST. SPECIFIC AG.(PB-STL) 0.919 ng/mL 0-4 Mar 06, 2024 09:[address] [facility] COMPREHENSIVE METABOLIC PANEL Specimen Type: PLASMA Comment: No hemolysis noted. Ordering Provider: MANUEL BAIRD Report Released Date/Time: Mar 06, 2024 09:47 AM Reporting Lab: [facility] [address] [facility] [facility] [phone] Performing Lab: [facility] [address] [facility] [address] CREATININE 0.87 mg/dL 0.7-1.3 UREA NITROGEN 14.7 [...] Mar 06, 2024 09:[address] [facility] TSH (MA-PB) Specimen Type: SERUM Comment: The listed sex of this patient may not be a typical indication for this test. Therefore, reference ranges or interpretive criteria listed may not be valid. Clinical correlation suggested. Ordering Provider: MANUEL BAIRD Report Released Date/Time: Mar 06, 2024 09:47 AM Reporting Lab: [facility] [address] [facility] [address] Performing Lab: [facility] [address] [facility] [facility] [address] TSH 2.984 u[IU]/mL 0.47-5 Mar 06, 2024 09:[address] [facility] CBC Specimen Type: BLOOD No comment entered. Ordering Provider: MANUEL BAIRD Report Released Date/Time: Mar 06, 2024 09:47 AM Reporting Lab: [facility] [address] [facility] [facility] [address] Performing Lab: [facility] [address] [facility] [phone] WBC 4.4 10*3/uL 3.6-11.2 RBC 5.19 10*6/uL [...] 10:34 AM QUIT TOBACCO >7 YEARS AGO [facility] Tobacco Use History This section includes a history of the smoking, or tobacco-related health factors, that were collected on or before the date of the Encounter. The data comes from the [place] facility where the Encounter took place. Date/Time Smoking Status/Tobacco Use Comment Juan acmichael Sep 30, 2015 10:12 AM QUIT TOBACCO >7 YEARS AGO [facility] Oct 29, 2014 10:23 AM QUIT TOBACCO >7 YEARS AGO [facility] Dec 27, 2013 01:27 PM QUIT TOBACCO >7 YEARS AGO [facility] Feb 24, 2013 02:01 PM LIFETIME NON-USER OF TOBACCO [facility] Feb 11, 2009 10:09 AM QUIT TOBACCO >7 YEARS AGO [facility] Oct 06, 2006 09:30 AM CURRENT NON-TOBACC O USER-HX OF USE [facility] Oct 06, 2006 09:30 AM TOBACCO TERMINATION STAGE [facility] Advance Directives: All historical and current Section [...] DIRECTIVE DISCUSSION ERICK BARDALES [facility] Radiology Reports: +/- 30 days of the [...] E W/BLOOD FLOW DOPPLER (STL): CHET WALKER [id number] -1950 M Exm Date: MARCH 15, 2024@08:01 Req Phys: MANUEL BAIRD Loc: [facility]-MAN PACT STAR RES 4 (Req'g Img Loc: YASH-ULTRASOUND [facility] Service: Unknown [facility], [address] [place] [address] (Case [id number] COMPLETE) US ABDOMEN COMPLETE REDUCE SERVIC(US Detailed) CPT:16982 CPT Modifiers : 52 REDUCED SERVICES Reason for Study: thrombocytopenia, please check liver and spleen. (Case [id number] COMPLETE) US BLOOD FLOW ABD/RENAL DOPPLER ((US Detailed) CPT:41017 Clinical History: Report Status: Verified Date Reported: MARCH 15, 2024 Date Verified: MARCH 15, 2024 [facility] E-Sig:/ES/YESICA LOWERY MD Report: US ABDOMEN COMPLETE REDUCE SERVICE, US BLOOD FLOW ABD/RENAL DOPPLER (COMPLETE) [id number], [id number] DATE: 03/15/2024 8:01 AM EXAM: ABDOMINAL ULTRASOUND [id number], [id number] HISTORY: thrombocytopenia, please check liver and spleen. [...] Interpreting Staff: YESICA LOWERY MD, STAFF RADIOLOGIST ([facility]) Primary Interpreting Resident: Flory Guzman MD, Resident Physician /YESICA SALGUERO. [facility] [place] [facility] Encounter Notes: All associated encounter notes This section contains the clinical notes associated to the Encounter. Date/Time Encounter Note(s) Provider Source Feb 29, 2024 09:26 AM DENTISTRY NOTE: LOCAL TITLE: DENTAL HYGIENE ST STANDARD TITLE: DENTISTRY NOTE DATE OF NOTE: FEB 29, 2024@09:26 ENTRY DATE: FEB 29, 2024@09:32:12 AUTHOR: EH BERNARDO COSIGNER: URGENCY: STATUS: COMPLETED Patient Name: CHET WALKER, : 1950, Age: 73 Visit: S: Feb 29, 2024@09:00 YASH-DENTAL HYG 3. Primary PCE Diagnosis: K03.6 (Deposits [accretions] on teeth). Dental Category: 15-OPC, Class IV. Treatment Status: Active. Completed Care: (D1110) DENTAL PROPHYLAXIS ADULT. DX: K03.6 Deposits [Accretions] on Teeth (D1206) TOPICAL FLUORIDE VARNISH. DX: K02.3 Arrested Dental Caries (D1330) ORAL HYGIENE INSTRUCTION. DX: K03.6 Deposits [Accretions] on Teeth (D4999) UNSPECIFIED PERIODONTAL PROC. DX: K03.6 Deposits [Accretions] on Teeth (D9994) CASE MGMT-ORAL HEALTH LIT. DX: K02.3 Arrested Dental Caries (D9630) OTHER DRUGS/MEDICAMENTS. DX: K02.3 Arrested Dental Caries (D9932) CLEAN/INSPECT MAX COMP DENT. DX: K08.131 Complete Loss of Teeth due to Caries, Class I (D9935) CLEAN/INSPECT CARLOS PART DENT. DX: K08.431 Partial Loss of Teeth due to Caries, Class I DENTAL HYGIENE Chief Complaint: Patient presents to clinic for hygiene appointment and is without pain. Unable to wear/use dentures; does not wear them very often as they are uncomfortable. They have been adjusted many times. Subjective: This 73 year old [place] presents to the dental service for hygiene appointment. The notes that he is feeling well today. Review of medical history: There has been no change in the [place]'s health since the last dental visit. VITALS: 97.4 F [36.3 C] (02/10/2024 11:09) 130/68 (02/17/2024 11:55) 84 (02/17/2024 12:10) 24 (02/10/2024 11:09) Hospitalization/Surgeries: The reports there have been 0 hospitalization(s) and 0 surgery(ies) since the last dental appointment. Antibiotic premedication is not indicated. Active Outpatient Medications (including Supplies): Active Outpatient Medications Status 1) ACCU-CHEK [...] PAIN DO NOT ABRUPTLY DISCONTINUE MEDICATION. 7) GLUCOSE SENSOR FREESTYLE RADHIKA 3 USE SENSOR EVERY ACTIVE 2 WEEKS FOR BLOOD SUGAR MONITORING CHANGE SENSOR/SITE EVERY 14 DAYS. TO REPLACE SENSOR FOR ANY REASON OR FOR TECHNICAL HELP PLEASE CALL [facility] HELP DESK: -SPECIFIC PHONE NUMBER: [phone] Business LendersRADHIKA). 8) HCTZ 12.5/LISINOPRIL 20MG TAB TAKE 2 TABLETS BY MOUTH ACTIVE EVERY MORNING TO LOWER BLOOD PRESSURE 9) INSULIN,ASPART(EQV-NOVLG)10 0UN/ML FLXPEN INJECT 6 ACTIVE UNITS UNDER THE SKIN BEFORE SUPPER FOR DIABETES ADMINISTER 10 MINUTES BEFORE FOOD DIRECTED. REFRIGERATE UN-OPENED PENS. DISCARD CARTRIDGE 28 DAYS AFTER OPENING. 10) INSULIN,GLARG(TOUJEO MAX) 300 UNT/ML 3ML INJECT 90 ACTIVE UNITS UNDER THE SKIN ONCE A DAY FOR DIABETES ADMINISTER AT SAME TIME EACH DAY DIRECTED. DISCARD ANY OPEN CARTRIDGE AFTER 42 DAYS. *HIGH DOSE INSULIN* 11) LANCET,SOFTCLIX USE LANCET FOR BLOOD TEST TWICE A DAY ACTIVE FOR BLOOD SUGAR MONITORING USE DIRECTED 12) LIDOCAINE 5% PATCH APPLY 1 PATCH TO SKIN SITE ONCE A ACTIVE DAY NEEDED FOR LOCAL ANESTHESIA APPLY PATCH AND PRESS FIRMLY FOR 10-15 SECONDS. KEEP ON FOR 12 HOURS THEN REMOVE PATCH FOR 12 HOURS. 13) MELOXICAM 7.5MG TAB TAKE ONE TABLET [...] FOR WOUND CARE Active Non-VA Medications Status 1) Non-VA NAPROXEN NA 220MG TAB 220MG BY MOUTH ACTIVE NEEDED 22 Total Medications Medication list reviewed with patient. Any medication discrepancies have been resolved. Patient was provided with an updated list of medication(s). Allergies: TRAMADOL Patient reports no allergies to antiseptics. Sterilized RME internal indicators were reviewed and confirmed as sterilized. Patient gave verbal consent for today's treatment. Objective/Assessment: Accretions noted on teeth. Dental prophylaxis indicated. moderate plaque Periodontal charting completed: Pocket depths recorded, Bleeding points recorded Procedure: Radiographs:Panorex 01/25/2023 Periapical(s) DUE Current Home Care Assesment:Fair to poor Oral Cancer Screening: Normal Full mouth prophylaxis using: Hand Scaled, Rubber cup armenian with NuPro prophy paste coarse Fluoride treatment: 5.0% sodium flouride varnish applied Other Medications: Chlorhexidine Gluconate pre-treatment rinse Oral Exam: Performed by: Dr. Mohan; Bob is coming in 03/20 @ 9:30. He is coming in for an implant consult, Panx/Periodic, Alg impressions. He has been tracking his blood sugar levels as he is eager to be a candidate for implants. Oral Hygiene Instruction: Proxybrush, Dental floss, Soft tooth brush (modified Maynard technique) Oral Health Report reviewed. Recall Interval Recommended:6 month recall. Disposition: Patient tolerated the procedure well without complications. The patient was given post-procedure information and discharge instructions and told to contact the dental clinic with any issues/concerns that may arise post- procedure. Next Visit: 6 month recare Oral Health Assessment Findings: Plaque Index: 2 - Moderate Xerostomia: 0 - None Caries Risk: 1 - Low ??-- KEILY Oral Hygiene: 2 - Fair - - - - - - - - - - - - - - - - - - - - - - - - - - - - - - is very kind. /shen/ EH LAZO Dental Hygienist Signed: 02/29/2024 09:32 EH BERNARDO [facility]
--- OUTSIDE RECORDS SUMMARY | 2024-11-17 03:47 | XMS_ITS | Encounter Summary ---
Author Name [facility] [place] [facility] [place] Address [address] [place] [address] Care Team Providers Care Crop Puller Name Role Phone MANUEL BAIRD Primary Care [...] PART A Apr 08, 2017 PART A [id number] [phone] ASHLEY WALKER PATIENT Selected Encounter This section includes the information on record at [place] for the Encounter. Date/Time Encounter Type Encounter Description Reason Provider Source Feb 21, 2024 10:00 AM ACUPUNCT W/O STIMUL 15 MIN CIH TREATMENT ICD-10-CM M54.50 Low back pain, unspecified ZANDER FINE Encounter Template Text not used by VA Assessments - Encounter Diagnoses This section includes the primary and secondary diagnoses documented for the Encounter. Date/Time Primary/Secondary Diagnosis Diagnosis Name Provider Source Feb 21, 2024 09:44 AM PRIMARY Low back pain, unspecified ZANDER FINE [facility] Plan of Treatment: Future Appointments (+ 6 months) and Future Tests (+/- 45 days) The Plan of Treatment section includes future care activities for the patient [facility]. This section includes future appointments and future orders which are active, pending or scheduled. Future Appointments This section includes appointments that were scheduled to occur 6 months from the date of the Encounter, up to a maximum of 20 appointments. The data comes from all [facility]. Appointment Date/Time Appointment Type Appointme nt Facility Name Feb 28, 2024 01:30 PM AMBULATORY - REHAB MEDICIN E [facility] Feb 29, 2024 09:00 AM AMBULATORY - NONE [facility] Mar 06, 2024 09:00 AM AMBULATORY - NONE [facility] Mar 06, 2024 11:00 AM AMBULATORY - REHAB MEDICIN [facility] March 15, 2024 09:00 AM AMBULATORY - NONE [facility] March 16, 2024 09:30 AM AMBULATORY - MEDICINE [facility] March 20, 2024 09:30 AM AMBULATORY - MEDICINE [facility] March 21, 2024 09:30 AM AMBULATORY - REHAB MEDICIN [facility] March 27, 2024 08:30 AM AMBULATORY - NONE [facility] March 28, 2024 10:00 AM AMBULATORY - REHAB MEDICIN E [facility] April 04, 2024 09:30 AM AMBULATORY - REHAB MEDICIN [facility] April 07, 2024 10:15 AM AMBULATORY - MEDICINE [facility] Apr 11, 2024 09:30 AM AMBULATORY - REHAB MEDICIN [facility] Apr 18, 2024 02:00 PM AMBULATORY - NONE [facility] Apr 20, 2024 10:30 AM AMBULATORY - REHAB MEDICIN [facility] Apr 21, 2024 11:00 AM AMBULATORY - MEDICINE [facility] 2024 10:00 AM AMBULATORY - MEDICINE [facility] May 02, 2024 10:00 AM AMBULATORY - SURGERY [facility] May 04, 2024 10:30 AM AMBULATORY - REHAB MEDICIN E [facility] May 12, 2024 10:30 AM AMBULATORY - SURGERY [facility] Jul[facility]án [facility] Active, Pending, and Scheduled Orders [...] BLOOD FIT X1 SCREEN STOOL FECES SP [facility] March 20, 2024 12:36 PM Consult Order COMM[facility]ITY CARE-STL DENTAL SPEC Cons [address] [facility] Lab Results: +/- 30 days of the encounter This section includes the Chemistry and Hematology Lab Results on record with CT for the patient. Radiology Reports and Pathology Reports are provided separately, in subsequent sections. Lab Results This section contains the Chemistry/Hematology Results that were resulted 30 days before or 30 daysafter the date of the Encounter. Date/Time Source Result Type Result - Unit Interpretation Reference Range Comment Mar 06, 2024 10:03 AM [facility] MICRAL/CREAT PROFILE (STL) Specimen Type: URINE No comment entered. Ordering Provider: MANUEL BAIRD Report Released Date/Time: Mar 06, 2024 09:47 AM Reporting Lab: [facility] [address] [facility] [address] Performing Lab: [facility] [address] [facility] [address] URINE ALBUMIN (PB-STL) 114.8 mg/L uACR (STL) 59 mg/g H 0-29 CREATININE URINE/OTHERS 193.6 mg/dL H 63-166 Mar 06, 2024 09:52 AM [facility] HGA1C Specimen Type: BLOOD No comment entered. Ordering Provider: MANUEL BAIRD Report Released Date/Time: Mar 06, 2024 09:47 AM Reporting Lab: [facility] [address] [facility] [address] Performing Lab: [facility] [address] [facility] [address] HGA1C 7.0 H 4.0-6.0 Mar 06, 2024 09:52 AM [facility] LIPID PANEL (STL) Specimen Type: PLASMA Comment: No hemolysis noted. Ordering Provider: MANUEL BAIRD Report Released Date/Time: Mar 06, 2024 09:47 AM Reporting Lab: [facility] [address] [place] [phone] Performing Lab: [address] [address] CHOLESTEROL 161 mg/dL 0-200 TRIGLYCERIDE 119 mg/dL 0-150 CALCULATED LDL 107 mg/dL HDL(New) 30 mg/dL L >40 Mar 06, 2024 09:52 AM [facility] PROST. SPECIFIC AG.(PB-STL) Specimen Type: SERUM Comment: The listed sex of this patient may not be a typical indication for this test. Therefore, reference ranges or interpretive criteria listed may not be valid. Clinical correlation suggested. Ordering Provider: MANUEL BAIRD Report Released Date/Time: Mar 06, 2024 09:47 AM Reporting Lab: [address] [address] Performing Lab: [address] [address] PROST. SPECIFIC AG.(PB-STL) 0.919 ng/mL 0-4 Mar 06, 2024 09:52 AM [facility] COMPREHENSIVE METABOLIC PANEL Specimen Type: PLASMA Comment: No hemolysis noted. Ordering Provider: MANUEL BAIRD Report Released Date/Time: Mar 06, 2024 09:47 AM Reporting Lab: [address] [address] Performing Lab: [address] [address] CREATININE 0.87 mg/dL 0.7-1.3 UREA NITROGEN 14.7 [...] 92.3 >60 Mar 06, 2024 09:52 AM [facility] TSH (MA-PB) Specimen Type: SERUM Comment: The listed sex of this patient may not be a typical indication for this test. Therefore, reference ranges or interpretive criteria listed may not be valid. Clinical correlation suggested. Ordering Provider: MANUEL BAIRD Report Released Date/Time: Mar 06, 2024 09:47 AM Reporting Lab: [facility] [address] [place] [phone] Performing Lab: [facility] [address] [place] [address] TSH 2.984 u[IU]/mL 0.47-5 Mar 06, 2024 09:52 AM [facility] CBC Specimen Type: BLOOD No comment entered. Ordering Provider: MANUEL BAIRD Report Released Date/Time: Mar 06, 2024 09:47 AM Reporting Lab: [facility] [address] [place] [phone] Performing Lab: [facility] [address] [place] [address] WBC 4.4 10*3/uL 3.6-11.2 RBC 5.19 10*6/uL [...] EST-CV DECREASED ADEQUATE NORMRBC Yes SCRNPERF YES Advance Directives: All historical and current Section [...] 19, 2017 ADVANCE DIRECTIVE DISCUSSION ERICK BARDALES [facility] Radiology Reports: +/- 30 days [...] E W/BLOOD FLOW DOPPLER (STL): CHET WALKER [id number] -[id number] M Ex Date: MARCH 15, 2024@08:01 Req Phys: MANUEL BAIRD Loc: [facility]-MAN PACT STAR RES 4 (Req'g Img Loc: [facility]-ULTRASOUND [facility] Service: Unknown [facility] [address] [place] [address] (Case [id number] COMPLETE) US ABDOMEN COMPLETE REDUCE SERVIC(US Detailed) CPT:18342 CPT Modifiers : 52 REDUCED SERVICES Reason for Study: thrombocytopenia, please check liver and spleen. (Case [id number] COMPLETE) US BLOOD FLOW ABD/RENAL DOPPLER ((US Detailed) CPT:16339 Clinical History: Report Status: Verified Date Reported: MARCH 15, 2024 Date Verified: MARCH 15, 2024 Hospital Aide E-Sig:/ES/DILEEP LOWERY MD Report: US ABDOMEN COMPLETE REDUCE SERVICE, US BLOOD FLOW ABD/RENAL DOPPLER (COMPLETE) [id number], [id number] DATE: 03/15/2024 8:01 AM EXAM: ABDOMINAL ULTRASOUND [id number], [id number] HISTORY: thrombocytopenia, please check liver and spleen. [...] Splenomegaly measuring 15.6 cm in length. I, Dileep Lowery, have reviewed the images and report and concur with these findings. Primary Interpreting Staff: DILEEP LOWERY MD, STAFF RADIOLOGIST (Hospital Aide) Primary Interpreting Resident: Flory Guzman MD, Resident Physician /DILEEP SALGUERO [facility] Encounter Notes: All associated encounter notes This section contains the clinical notes associated to the Encounter. Date/Time Encounter Note(s) Provider Source Feb 21, 2024 09:43 AM [facility] NOTE: LOCAL TITLE: [place] ACUPUNCTURE NOTE STANDARD TITLE: [facility] NOTE DATE OF NOTE: FEB 21, 2024@09:43 ENTRY DATE: FEB 21, 2024@09:43:53 AUTHOR: ZANDER FINE COSIGNER: URGENCY: STATUS: COMPLETED Follow up visit Hickman Acupuncture/Hickman Acupressure was the only treatment given. Patient was evaluated and agreed to receive Hickman Acupuncture (BFA). Patient was evaluated and agreed to receive Hickman Acupuncture Protocol (BFA)/Hickman Acupressure (BAA) for the following pain condition(s): Comment: low back Pre BFA/BAA Numeric Pain Rating Scale of site with highest pain: number from 0-10: 7 The patient was asked the following questions: During the past 24 hours, how much has your pain interfered with your usual activity? number from 0-10: 7 During the past 24 hours, how much has your pain interfered with your usual sleep? number from 0-10: 7 During the past 24 hours, how much has the pain affected your usual mood? number from 0-10: 7 During the past 24 hours, how much has pain contributed to your stress? number from 0-10: 7 Oral Informed Consent obtained for BFA/BAA Procedure: Ear was prepped with alcohol Needle type: Ear press tacks The following points were placed: All 10 points in both ears Complications: Patient tolerated well, without any complications. Post treatment Numeric Pain Rating Scale: number from 0-10: 7 Standard [id number] time for application of BFA/BAA protocol is 15 minutes. No electrical stimulation was used. The patient was provided with the following post BFA instructions: -Continue normal activities and avoid over exertion for the initial 6-12 hours after a treatment. Avoid alcohol for 12 hours after treatment. -You may bathe or shower with the needles in place, but be careful not to pull the needles when cleaning or drying the ear. -If you experience new or continued redness, swelling or pain, remove the needles or return to clinic for evaluation and/or needle removal. -You may experience drowsiness, lightheadedness, or euphoria during the treatment or within 30 minutes of treatment. -Do not have an MRI scan with the needles in place (If you need to have an MRI, please remove needles prior to scan). -Continue to take all prescription medication according to your provider's instructions. -After three days, remove all needles. You may have small stud needles (ASP needles) covered by an adhesive bandage, or needles that are attached to the adhesive bandage (press tack needles). ASP needles may be removed by gripping them with your fingernails or tweezers. Rock the needles back and forth to remove. Press tack needles may be removed by peeling off the tape that holds the needle in place. -Morse must be placed in a sharps container or household container that meets sharps disposal guidelines. Household container must be: a. made of a puncture-resistant material; b. able to close with a tight-fitting, puncture resistant lid, without sharps being able to come out; c. stand upright and be stable during use; d. leak-resistant; e. properly labeled (sharps - biohazard); and f. disposed of according to community guidelines, if available. -Please keep all regularly scheduled follow-up visits. Return sooner should your condition worsen. /shen/ ZANDER FINE, MSN, PATCHER, MACHINE FILLER SHREDDER-C, DipACLM //[facility] NURSE PRACTITIONER Signed: 02/21/2024 09:44 ZANDER FINE [facility]
--- OUTSIDE RECORDS SUMMARY | 2024-11-17 03:47 | XMS_ITS ---
Author Name [facility] [place] [facility] [place] Address [address] [place] [address] Care Team Providers Care Etl Bi Developer Name Role Phone MANUEL BAIRD Primary [...] PART A Apr 08, 2017 PART A [id number] [phone] ASHLEY WALKER PATIENT Selected Encounter This section includes the [place] for the Encounter. Date/Time Encounter Type Encounter Description Reason Provider Source Feb 11, 2024 11:00 AM OFF/OP CNSLTJ NEW/EST MOD 40 DERMATOLOGY ICD-10-CM L85.9 Epidermal thickening, unspecified J LUIS CADENA Encounter Template Text not used by VA Assessments - Encounter Diagnoses This section includes the primary and secondary diagnoses documented for the Encounter. Date/Time Primary/Secondary Diagnosis Diagnosis Name Provider Source March 10, 2024 09:35 AM PRIMARY Epidermal thickening, unspecified GRACY BRAGG [facility] March 10, 2024 09:35 AM SECONDARY Other melanin hyperpigmentation GRACY BRAGG [facility] March 10, 2024 09:35 AM SECONDARY Other seborrheic keratosis GRACY BRAGG [facility] March 10, 2024 09:35 AM SECONDARY Xerosis cutis GRACY BRAGG [facility] Plan of Treatment: Future Appointments (+ 6 months) and Future Tests (+/- 45 days) The Plan of Treatment section includes future care activities for the patient [place] [facility] [place] [facility]. This section includes future appointments and future orders which are active, pending or scheduled. Future Appointments This section includes appointments that were scheduled to occur 6 months from the date of the Encounter, up to a maximum of 20 appointments. The data comes from all [facility]. Appointment Date/Time Appointment Type Appointme nt Facility Name Feb 17, 2024 11:30 AM AMBULATORY - MEDICINE [facility] Feb 21, 2024 10:00 AM AMBULATORY - NONE [facility] Feb 28, 2024 01:30 PM AMBULATORY - REHAB MEDICIN E [facility] Feb 29, 2024 09:00 AM AMBULATORY - NONE [facility] Mar 06, 2024 09:00 AM AMBULATORY - NONE [facility] Mar 06, 2024 11:00 [facility] March 15, 2024 09:00 AM AMBULATORY - NONE [facility] March 16, 2024 09:30 AM AMBULATORY - MEDICINE [facility] March 20, 2024 09:30 AM AMBULATORY - MEDICINE [facility] March 21, 2024 09:30 AM AMBULATORY - REHAB MEDICIN [facility] March 27, 2024 08:30 AM AMBULATORY - NONE [facility] March 28, 2024 10:00 AM AMBULATORY - REHAB MEDICIN [facility] April 04, 2024 09:30 AM AMBULATORY - REHAB MEDICIN [facility] April 07, 2024 10:15 AM AMBULATORY - MEDICINE [facility] Apr 11, 2024 09:30 AM AMBULATORY - REHAB MEDICIN E [facility] Apr 18, 2024 02:00 PM AMBULATORY - NONE [facility] Apr 20, 2024 10:30 AM AMBULATORY - REHAB MEDICIN E [facility] Apr 21, 2024 11:00 AM AMBULATORY - MEDICINE [facility] 2024 10:00 AM AMBULATORY - MEDICINE [facility] May 02, 2024 10:00 AM AMBULATORY - SURGERY [facility] Julián [facility] Active, Pending, and Scheduled Orders This section includes a listing of several types of active, pending, and scheduled orders, including clinic medications orders, diagnostic test orders, procedure orders and consult orders; where the start date of the order is 45 days before the date of the Encounter or 45 days after the date of theEncounter. The data comes from all [place] treatment facilities. Test Date/Time Test Type Test Details Facility Name Feb 02, 2024 12:00 AM Laboratory - Chemi stry Order OCCULT BLOOD FIT X1 SCREEN STOOL FECES [facility] March 20, 2024 12:36 PM Consult Order COMMUNITY CARE-STL DENTAL SPEC Cons Receiver Bulk System's Choice [facility] Lab Results: +/- 30 days of the encounter This section includes the Chemistry and Hematology Lab Results on record with [place] for the patient. Radiology Reports and Pathology Reports are provided separately, in subsequent sections. Lab Results This section contains the Chemistry/Hematology Results that were resulted 30 days before or 30 daysafter the date of the Encounter. Date/Time Source Result Type Result - Unit Interpretation Reference Range Comment Mar 06, 2024 10:03 AM [facility] MICRAL/CREAT PROFILE (STL) Specimen Type: URINE No comment entered. Ordering Provider: MANUEL BAIRD Report Released Date/Time: Mar 06, 2024 09:47 AM Reporting Lab: [place] [id number] [facility] [address] Performing Lab: [address] [address] URINE ALBUMIN (PB-STL) 114.8 mg/L uACR (STL) 59 mg/g H 0-29 CREATININE URINE/OTHERS 193.6 mg/dL H 63-166 Mar 06, 2024 09:52 AM [facility] HGA1C Specimen Type: BLOOD No comment entered. Ordering Provider: MANUEL BAIRD Report Released Date/Time: Mar 06, 2024 09:47 AM Reporting Lab: [facility] [address] [address] Performing Lab: [facility] [address] [address] HGA1C 7.0 H 4.0-6.0 Mar 06, 2024 09:52 AM [facility] LIPID PANEL (STL) Specimen Type: PLASMA Comment: No hemolysis noted. Ordering Provider: MANUEL BAIRD Report Released Date/Time: Mar 06, 2024 09:47 AM Reporting Lab: [facility] [address] [address] Performing Lab: [facility] [address] [address] CHOLESTEROL 161 mg/dL 0-200 TRIGLYCERIDE 119 mg/dL 0-150 CALCULATED LDL 107 mg/dL HDL(New) 30 mg/dL L >40 Mar 06, 2024 09:52 AM [facility] PROST. SPECIFIC AG.(PB-STL) Specimen Type: SERUM Comment: The listed sex of this patient may not be a typical indication for this test. Therefore, reference ranges or interpretive criteria listed may not be valid. Clinical correlation suggested. Ordering Provider: MANUEL BAIRD Report Released Date/Time: Mar 06, 2024 09:47 AM Reporting Lab: [facility] [address] [address] Performing Lab: [facility] [address] [address] PROST. SPECIFIC AG.(PB-STL) 0.919 ng/mL 0-4 Mar 06, 2024 09:52 AM [facility] TSH (MA-PB) Specimen Type: SERUM Comment: The listed sex of this patient may not be a typical indication for this test. Therefore, reference ranges or interpretive criteria listed may not be valid. Clinical correlation suggested. Ordering Provider: MANUEL BAIRD Report Released Date/Time: Mar 06, 2024 09:47 AM Reporting Lab: [facility] [address] [facility] [address] Performing Lab: [facility] [address] [place] [phone] TSH 2.984 u[IU]/mL 0.47-5 Mar 06, 2024 09:52 AM [facility] COMPREHENSIVE METABOLIC PANEL Specimen Type: PLASMA Comment: No hemolysis noted. Ordering Provider: MANUEL BAIRD Report Released Date/Time: Mar 06, 2024 09:47 AM Reporting Lab: [address] [address] Performing Lab: [address] [address] CREATININE 0.87 mg/dL 0.7-1.3 UREA NITROGEN 14.7 [...] 92.3 >60 Mar 06, 2024 09:52 AM [facility] CBC Specimen Type: BLOOD No comment entered. Ordering Provider: MANUEL BAIRD Report Released Date/Time: Mar 06, 2024 09:47 AM Reporting Lab: [address] [address] Performing Lab: [address] [address] WBC 4.4 10*3/uL 3.6-11.2 RBC 5.19 10*6/uL [...] ALL of a patient's completed or amended [place] Advance and Rescinded Directives. The entries below indicate that a directive exists for the patient, but an actual copy is not included with this document. The data comes from all [place] facilities. Date Advance Directives Provider Source Jan 19, 2017 ADVANCE DIRECTIVE DISCUSSION ERICK BARDALES [facility] Encounter Notes: All associated encounter notes This section contains the clinical notes associated to the Encounter. Date/Time Encounter Note(s) Provider Source Feb 11, 2024 11:04 AM DERMATOLOGY CONSUL T: LOCAL TITLE: DERMATOLOGY CONSULT STL STANDARD TITLE: DERMATOLOGY CONSULT DATE OF NOTE: FEB 11, 2024@11:04 ENTRY DATE: FEB 11, 2024@11:04:57 AUTHOR: GRACY BRAGG EXP COSIGNER: J LUIS CADENA URGENCY: STATUS: COMPLETED DERMATOLOGY CONSULT STL Has ADDENDA DERM CONSULT NOTE CHET WALKER is a 73 year MALE with no history of skin cancer presenting for CONSULTATION OF: Silver scale lesions on bilateral elbow extensor surfaces REFERRED BY: JAYNE OQUENDO Today: dry skin on the arms, especially on the elbows. Not itching, painful, not putting anything on it. No rash elsewhere, no personal or family history of psoriasis. Otherwise, no new, changing, or symptomatic skin lesions, moles, or rashes today. Allergies: TRAMADOL ROS: all systems reviewed and were negative except as noted in the HPI Family history of skin cancer (non-melanoma, melanoma): None OBJECTIVE Physical Examination 1. bilateral forearms with xerosis, and with xerotic hyperkeratotic plaques bilateral elbows 2. Scattered brown keratotic stuck on appearing papules on the face, trunk, b/l upper extremities 3. Scattered light brown macules on face, trunk, b/l upper extremities otherwise: General Appearance: Well Appearing MALE, NAD Mood/Affect: pleasant/appropriate Face: WNL Ears: WNL Nose: WNL Forehead: WNL Scalp, Hair: no scale Neck: WNL Upper Extremities: WNL ASSESSMENT AND PLAN # Xerosis cutis with frictional dermatitis b/l elbows Unlikely psoriasis based on exam today, and no other areas of involvement START ammonium lactate cream BID to AA, Rx sent today with mulitple refills Gentle skin care reviewed # Seborrheic keratoses Benign, reassurance # Lentigines ABCDEs reviewed Monthly self skin examinations Regular PCP full body skin examination Photoprotection Pt phone: RTC PRN /shen/ GRACY BRAGG MD Signed: 02/11/2024 13:01 /shen/ J LUIS CADENA MD PHD STAFF PHYSICIAN - DERMATOLOGY Cosigned: 02/13/2024 22:19 02/13/2024 ADDENDUM STATUS: COMPLETED Patient discussed with resident. Agree with history, exam, assessment and plan as documented. /shen/ J LUIS CADENA MD PHD STAFF PHYSICIAN - DERMATOLOGY Signed: 02/13/2024 22:20 GRACY BRAGG [facility]
--- OUTSIDE RECORDS SUMMARY | 2024-11-17 03:47 | XMS_ITS | Encounter Summary ---
Author Name [facility] [place] Organization [facility] [place] Address [address] [place] [address] Care Team Providers Care Rehab Spec Name Role Phone MANUEL BAIRD Primary Care [...] PART A Apr 08, 2017 PART A [id number] ASHLEY WALKER PATIENT Selected Encounter This section includes the information on record at [place] for the Encounter. Date/Time Encounter Type Encounter Description Reason Provider Source March 26, 2024 06:11 AM Outpatient Encounter GENERAL INTERNAL MEDICINE MANUEL BAIRD Nav Encounter Template Text not used by [place] Plan of Treatment: Future Appointments (+ 6 [...] 20 appointments. The data comes from all [place] treatment [facility]. Appointment Date/Time Appointment Type Appointme nt Facility Name March 27, 2024 08:30 AM AMBULATORY - NONE [facility] March 28, 2024 10:00 AM AMBULATORY - REHAB MEDICIN E [facility] April 04, 2024 09:30 AM AMBULATORY - REHAB MEDICIN E [facility] April 07, 2024 10:15 AM AMBULATORY - MEDICINE [facility] Apr 11, 2024 09:30 AM AMBULATORY - REHAB MEDICIN E [facility] Apr 18, 2024 02:00 PM AMBULATORY - NONE [facility] Apr 20, 2024 10:30 AM AMBULATORY - REHAB MEDICIN E [facility] Apr 21, 2024 11:00 AM AMBULATORY - MEDICINE [facility] 2024 10:00 AM AMBULATORY - MEDICINE [facility] May 02, 2024 10:00 AM AMBULATORY - SURGERY . [facility] May 04, 2024 10:30 AM AMBULATORY - REHAB MEDICIN E [facility] May 12, 2024 10:30 AM AMBULATORY - SURGERY . [facility] May 17, 2024 09:00 AM AMBULATORY - MEDICINE [facility] May 18, 2024 10:30 AM AMBULATORY - REHAB MEDICIN E [facility] May 31, 2024 02:00 PM AMBULATORY - SURGERY . [facility] Jun 05, 2024 08:40 AM AMBULATORY - NONE [facility] Jun 07, 2024 12:30 PM AMBULATORY - MEDICINE [facility] Jun 07, 2024 01:30 PM AMBULATORY - NONE [facility] Jun 08, 2024 10:00 AM AMBULATORY - MEDICINE [facility] Jun 09, 2024 01:00 PM AMBULATORY - SURGERY [facility] Active, Pending, and Scheduled Orders This section includes a listing of several types of active, pending, and scheduled orders, including clinic medications orders, diagnostic test orders, procedure orders and consult orders; where the start date of the order is 45 days before the date of the Encounter or 45 days after the date of theEncounter. The data comes from all [place] treatment facilities. Test Date/Time Test Type Test Details Facility Name March 20, 2024 12:36 PM Consult Order [facility] DENTAL SPEC Cons Attendant [facility] April 07, 2024 12:00 AM Laboratory - Chemi stry Order OCCULT BLOOD FIT X1 SCREEN STOOL FECES SP [facility] Lab Results: +/- 30 days of the encounter This section includes the Chemistry and Hematology Lab Results on record with [place] for the patient. Radiology Reports and Pathology Reports are provided separately, in subsequent sections. Lab Results This section contains the Chemistry/Hematology Results that were resulted 30 days before or 30 daysafter the date of the Encounter. Date/Time Source Result Type Result - Unit Interpretation Reference Range Comment April 07, 2024 11:40 AM [facility] HIV COMBO FOURTH GENERATION (STL) Specimen Type: SERUM No comment entered. Ordering Provider: JAYNE OQUENDO Report Released Date/Time: April 07, 2024 10:44 AM Reporting Lab: [facility] [address] [facility] [address] Performing Lab: [place] [address] [facility] [address] HIV COMBO FOURTH GENERATION (STL) Nonreactive Nonreactive April 07, 2024 11:40 AM [facility] PT/INR NEW ([facility]) Specimen Type: PLASMA No comment entered. Ordering Provider: JAYNE OQUENDO Report Released Date/Time: April 07, 2024 10:44 AM Reporting Lab: [facility] [address] [facility] [address] Performing Lab: [facility] [address] [place] [phone] PROTIME 13.0 s H 9.4-12.5 INR VALUE 1.2 {INR} April 07, 2024 11:40 AM [facility] HEP C Ab HCV Ab (L) Specimen Type: SERUM No comment entered. Ordering Provider: JAYNE OQUENDO Report Released Date/Time: April 07, 2024 10:44 AM Reporting Lab: [facility] [address] [place] [phone] Performing Lab: [address] [address] HEP C Ab HCV Ab (L) Nonreactive Nonreactive April 07, 2024 11:40 AM [facility] LIPID PANEL (L) Specimen Type: PLASMA No comment entered. Ordering Provider: JAYNE OQUENDO Report Released Date/Time: April 07, 2024 11:14 AM Reporting Lab: [address] [address] Performing Lab: [address] [address] CHOLESTEROL 180 mg/dL 0-200 TRIGLYCERIDE 145 mg/dL 0-150 CALCULATED LDL 117 mg/dL HDL(New) 34 mg/dL L >40 April 07, 2024 11:40 AM [facility] CBC Specimen Type: BLOOD Comment: No clots Ordering Provider: JAYNE OQUENDO Report Released Date/Time: April 07, 2024 10:44 AM Reporting Lab: [address] [address] Performing Lab: [address] [address] WBC 4.4 10*3/uL 3.6-11.2 RBC 5.01 10*6/uL [...] SCRNPERF YES April 07, 2024 10:01 AM [facility] GLUCOSE,BLOOD-poct (STL) Specimen Type: BLOOD Comment: Test Performed by: [id number] Meter #: [id number] Ordering Provider: MANUEL BAIRD Report Released Date/Time: April 07, 2024 02:51 PM Reporting Lab: [address] [address] Performing Lab: [address] [address] GLUCOSE,BLOOD- poct (STL) 206 mg/dL H 72-99 Mar 06, 2024 10:03 AM [facility] MICRAL/CREAT PROFILE (STL) Specimen Type: URINE No comment entered. Ordering Provider: MANUEL BAIRD Report Released Date/Time: Mar 06, 2024 09:47 AM Reporting Lab: [facility] [address] [place] [phone] Performing Lab: [facility] [address] [place] [phone] URINE ALBUMIN (PB-STL) 114.8 mg/L uACR (STL) 59 mg/g H 0-29 CREATININE URINE/OTHERS 193.6 mg/dL H 63-166 Mar 06, 2024 09:52 AM [facility] HGA1C Specimen Type: BLOOD No comment entered. Ordering Provider: MANUEL BAIRD Report Released Date/Time: Mar 06, 2024 09:47 AM Reporting Lab: [facility] [address] [place] [phone] Performing Lab: [facility] [address] [place] [phone] HGA1C 7.0 H 4.0-6.0 Mar 06, 2024 09:52 AM [facility] LIPID PANEL (STL) Specimen Type: PLASMA Comment: No hemolysis noted. Ordering Provider: MANUEL BAIRD Report Released Date/Time: Mar 06, 2024 09:47 AM Reporting Lab: [facility] [address] [facility] [address] Performing Lab: [facility] [address] [place] [phone] CHOLESTEROL 161 mg/dL 0-200 TRIGLYCERIDE 119 mg/dL 0-150 CALCULATED LDL 107 mg/dL HDL(New) 30 mg/dL L >40 Mar 06, 2024 09:52 AM [facility] PROST. SPECIFIC AG.(PB-STL) Specimen Type: SERUM Comment: The listed sex of this patient may not be a typical indication for this test. Therefore, reference ranges or interpretive criteria listed may not be valid. Clinical correlation suggested. Ordering Provider: MANUEL BAIRD Report Released Date/Time: Mar 06, 2024 09:47 AM Reporting Lab: [facility] [address] [facility] [address] Performing Lab: [address] [address] PROST. SPECIFIC AG.(PB-STL) 0.919 ng/mL 0-4 Mar 06, 2024 09:52 AM [facility] COMPREHENSIVE METABOLIC PANEL Specimen Type: PLASMA Comment: No hemolysis noted. Ordering Provider: MANUEL BAIRD Report Released Date/Time: Mar 06, 2024 09:47 AM Reporting Lab: [facility] [address] [facility] [address] Performing Lab: [facility] [address] [place] [phone] CREATININE 0.87 mg/dL 0.7-1.3 UREA NITROGEN 14.7 [...] 92.3 >60 Mar 06, 2024 09:52 AM [facility] TSH (MA-PB) Specimen Type: SERUM Comment: The listed sex of this patient may not be a typical indication for this test. Therefore, reference ranges or interpretive criteria listed may not be valid. Clinical correlation suggested. Ordering Provider: MANUEL BAIRD Report Released Date/Time: Mar 06, 2024 09:47 AM Reporting Lab: [address] [address] Performing Lab: [address] [address] TSH 2.984 u[IU]/mL 0.47-5 Mar 06, 2024 09:52 AM [facility] CBC Specimen Type: BLOOD No comment entered. Ordering Provider: MANUEL BAIRD Report Released Date/Time: Mar 06, 2024 09:47 AM Reporting Lab: [facility] [address] [place] [phone] Performing Lab: [address] [address] WBC 4.4 10*3/uL 3.6-11.2 RBC 5.19 10*6/uL [...] and tobacco- related health factors from the [place] facility where the Encounter took place. Current Smoking Status This section includes the most current smoking, or tobacco-related health factor, from the [place] facility where the Encounter took place. Date/Time Current Smoking Status Comment Radhika ity Aug 11, 2016 10:34 AM QUIT TOBACCO >7 YEARS AGO [facility] Tobacco Use History This section includes a history of the smoking, or tobacco-related health factors, that were collected on or before the date of the Encounter. The data comes from the [place] facility where the Encounter took place. Date/Time [...] ALL of a patient's completed or amended [place] Advance and Rescinded Directives. The entries below indicate that a directive exists for the patient, but an actual copy is not included with this document. The data comes from all [place] facilities. Date Advance Directives Provider Source Jan 19, 2017 ADVANCE DIRECTIVE DISCUSSION ERICK BARDALES [facility] Radiology Reports: +/- 30 days [...] the Encounter. The data comes from all [place] treatment facilities. Date/Time Radiology Report Provider Source March 15, 2024 08:01 AM US ABDOMEN COMPLET E W/BLOOD FLOW DOPPLER (STL): CHET WALKER [id number] M Exm Date: MARCH 15, 2024@08:01 Req Phys: MANUEL BAIRD Loc: [facility] PACT STAR RES 4 (Req'g Img Loc: [facility]ULTRASOUND Service: Unknown [facility] [address] [place] [address] (Case [id number] COMPLETE) US ABDOMEN COMPLETE REDUCE SERVIC(US Detailed) CPT:37138 CPT Modifiers : 52 REDUCED SERVICES Reason for Study: thrombocytopenia, please check liver and spleen. (Case [id number] COMPLETE) US BLOOD FLOW ABD/RENAL DOPPLER ((US Detailed) CPT:44805 Clinical History: Report Status: Verified Date Reported: MARCH 15, 2024 Date Verified: MARCH 15, 2024 Manager Occupational E-Sig:/ES/YESICA CORDOVA MD Report: US ABDOMEN COMPLETE REDUCE SERVICE, US BLOOD FLOW ABD/RENAL DOPPLER (COMPLETE) [id number], [id number] DATE: 03/15/2024 8:01 AM EXAM: ABDOMINAL ULTRASOUND [id number], [id number] HISTORY: thrombocytopenia, please check liver and spleen. [...] Interpreting Staff: YESICA CORDOVA MD, STAFF RADIOLOGIST (Manager Occupational) Primary Interpreting Resident: Flory Guzman MD, Resident Physician /YESICA SALGUERO [facility] Encounter Notes: All associated encounter notes This section contains the clinical notes associated to the Encounter. Date/Time Encounter Note(s) Provider Source March 31, 2024 02:41 PM ADDENDUM: LOCAL TITLE: Addendum STANDARD TITLE: ADDENDUM DATE OF NOTE: MARCH 31, 2024@14:41:55 ENTRY DATE: MARCH 31, 2024@14:41:56 AUTHOR: EMILIE SOUSA EXP COSIGNER: URGENCY: STATUS: COMPLETED THERE IS CURRENTLY NO AVAILABILITY IN ANY OF THE [facility] AT THIS TIME. I WILL CONTINUE TO REVIEW THE RESIDENT CLINIC GRIDS FOR AVAILABILITY DAILY TO SCHEDULE. /shen/ EMILIE SOUSA ADVANCED PACKAGER HEAD Signed: 03/31/2024 14:46 Receipt Acknowledged By: 04/03/2024 17:04 /shen/ manuel baird M.D. Staff Physician --- Original Document --- 03/21/24 [facility] SELF PRESENTING CARE COORD PLAN 657 STL: Emergency Notification Intake Date Presenting to the Facility: March Method of Contact: Submitted to Centralized Call Center Notification ID: [id number] HSRM Referral #: [facility] [place] Name: Hospital: [facility] Address: [address] [facility] City: [place] State: [place] Zip Code: [address] [facility] Facility Point of Contact: Name: [facility] Chief complaint: FINGER INJURY Primary Diagnosis: Disposition Unknown at time of intake note entry Status: 1703 Clinical Review No records pertinent to this ER Visit found in [place]. Faxed request [facility] /shen/ SRAVANTHI [facility] ASSISTANT GM OF CONTENT & DELIVERY Signed: 03/26/2024 06:16 Receipt Acknowledged By: 03/28/2024 10:49 /shen/ CHARITY HALL REGISTERED NURSE * AWAITING SIGNATURE * YVONNE CARLSON 03/28/2024 ADDENDUM STATUS: COMPLETED Patient last seen 04/03/24 with a RTC in 3 months. Noted patient is not scheduled for F/U- Will alert MSA to contact patient for Routine F/U appointment. /camryn HALL REGISTERED NURSE Signed: 03/28/2024 10:49 Receipt Acknowledged By: 03/28/2024 14:20 /camryn SOUSA ADVANCED PACKAGER HEAD 03/28/2024 ADDENDUM STATUS: COMPLETED DC Summary and relevant records received via [employer]. Sent to [facility] folder to be scanned into CPRS. Evaluated and released from ED for: Laceration without foreigh body of left thumb without damage to nail Followup: with private physician Records sent to [facility] for expedited upload. [facility] alerted via ECR Tool for eligibility review. No further records available. Alerting PCP team to this note for continuity of care. /shen/ YESSI JOHNSON REGISTERED NURSE Signed: 03/28/2024 11:52 Receipt Acknowledged By: 03/28/2024 12:28 /camryn HALL REGISTERED NURSE 03/31/2024 13:38 /camryn baird M.D. Staff Physician 03/28/2024 ADDENDUM STATUS: COMPLETED correction patient last PCP appointment 02/02/24 /camryn HALL REGISTERED NURSE Signed: 03/28/2024 12:27 03/28/2024 ADDENDUM STATUS: COMPLETED ALERTING PCP TO PLEASE PLACE RTC FOR SCHEDULING. RTC WAS NOT PLACED FROM LAST VISIT ON 02/02/24. /shen/ EMILIE SOUSA ADVANCED PACKAGER HEAD Signed: 03/28/2024 14:21 Receipt Acknowledged By: 03/31/2024 14:13 /camryn baird M.D. Staff Physician 03/31/2024 ADDENDUM STATUS: COMPLETED RTC was put in, but it was displaced due to no residents grids available at that time. Please schedule with next available star resident grid. /camryn baird M.D. Staff Physician Signed: 03/31/2024 14:15 Receipt Acknowledged By: 03/31/2024 14:32 /camryn SOUSA ADVANCED PACKAGER HEAD EMILIE SOUSA [facility] March 31, 2024 02:13 PM ADDENDUM: LOCAL TITLE: Addendum STANDARD TITLE: ADDENDUM DATE OF NOTE: MARCH 31, 2024@14:13:29 ENTRY DATE: MARCH 31, 2024@14:13:30 AUTHOR: MANUEL BAIRD EXP COSIGNER: URGENCY: STATUS: COMPLETED RTC was put in, but it was displaced due to no residents grids available at that time. Please schedule with next available star resident grid. /camryn baird M.D. Staff Physician Signed: 03/31/2024 14:15 Receipt Acknowledged By: 03/31/2024 14:32 /camryn SOUSA ADVANCED PACKAGER HEAD --- Original Document --- 03/21/24 [facility] CARE-EYAL SELF PRESENTING CARE COORD PLAN 657 STL: Emergency Notification Intake Date Presenting to the Facility: March Method of Contact: Submitted to Centralized Call Center Notification ID: [id number] HSRM Referral #: [facility] Name: Hospital: [facility] Address: [address] [place] [address] City: [place] State: [place] Zip Code: [address] [facility] Facility Point of Contact: Name: [facility] Chief complaint: FINGER INJURY Primary Diagnosis: Disposition Unknown at time of intake note entry Status: 1703 Clinical Review No records pertinent to this ER Visit found in [facility]. Faxed [facility] /shen/ SRAVANTHI [facility] ASSISTANT GM OF CONTENT & DELIVERY Signed: 03/26/2024 06:16 Receipt Acknowledged By: 03/28/2024 10:49 /camryn HALL REGISTERED NURSE * AWAITING SIGNATURE * YVONNE CARLSON 03/28/2024 ADDENDUM STATUS: COMPLETED Patient last seen 04/03/24 with a RTC in 3 months. Noted patient is not scheduled for F/U- Will alert MSA to contact patient for Routine F/U appointment. /camryn HALL REGISTERED NURSE Signed: 03/28/2024 10:49 Receipt Acknowledged By: 03/28/2024 14:20 /shen/ EMILIE SOUSA ADVANCED PACKAGER HEAD 03/28/2024 ADDENDUM STATUS: COMPLETED DC Summary and relevant records received via RightFax. Sent to [facility] folder to be scanned into CPRS. Evaluated and released from ED for: Laceration without foreigh body of left thumb without damage to nail Followup: with private physician Records sent to [facility] for expedited upload. [facility] alerted via ECR Tool for eligibility review. No further records available. Alerting PCP team to this note for continuity of care. /shen/ YESSI JOHNSON REGISTERED NURSE Signed: 03/28/2024 11:52 Receipt Acknowledged By: 03/28/2024 12:28 /camryn HALL REGISTERED NURSE 03/31/2024 13:38 /shen/ manuel baird M.D. Staff Physician 03/28/2024 ADDENDUM STATUS: COMPLETED correction patient last PCP appointment 02/02/24 /shen/ CHARITY HALL REGISTERED NURSE Signed: 03/28/2024 12:27 03/28/2024 ADDENDUM STATUS: COMPLETED ALERTING PCP TO PLEASE PLACE RTC FOR SCHEDULING. RTC WAS NOT PLACED FROM LAST VISIT ON 02/02/24. /camryn SOUSA ADVANCED PACKAGER HEAD Signed: 03/28/2024 14:21 Receipt Acknowledged By: 03/31/2024 14:13 /shen/ manuel baird M.D. Staff Physician MANUEL BAIRD [facility] March 28, 2024 02:20 PM ADDENDUM: LOCAL TITLE: Addendum STANDARD TITLE: ADDENDUM DATE OF NOTE: MARCH 28, 2024@14:20:57 ENTRY DATE: MARCH 28, 2024@14:20:58 AUTHOR: EMILIE SOUSA EXP COSIGNER: URGENCY: STATUS: COMPLETED ALERTING PCP TO PLEASE PLACE RTC FOR SCHEDULING. RTC WAS NOT PLACED FROM LAST VISIT ON 02/02/24. /camryn SOUSA ADVANCED PACKAGER HEAD Signed: 03/28/2024 14:21 Receipt Acknowledged By: 03/31/2024 14:13 /shen/ manuel baird M.D. Staff Physician --- Original Document --- 03/21/24 [facility] PRESENTING CARE COORD PLAN 657 STL: Emergency Notification Intake Date Presenting to the Facility: March Method of Contact: Submitted to Centralized Call Center Notification ID: [id number] [facility] Name: Hospital: [facility] Address: [address] [facility] City: [place] State: [place] Zip Code: [address] [facility] Facility Point of Contact: Name: [facility] Chief complaint: FINGER INJURY Primary Diagnosis: Disposition Unknown at time of intake note entry Status: 1703 Clinical Review No records pertinent to this ER Visit found in [facility]. [facility]axed [facility] /shen/ SRAVANTHI [facility] ASSISTANT GM OF CONTENT & DELIVERY Signed: 03/26/2024 06:16 Receipt Acknowledged By: 03/28/2024 10:49 /camryn HALL REGISTERED NURSE * AWAITING SIGNATURE * YVONNE CARLSON 03/28/2024 ADDENDUM STATUS: COMPLETED Patient last seen 04/03/24 with a RTC in 3 months. Noted patient is not scheduled for F/U- Will alert MSA to contact patient for Routine F/U appointment. /shen/ CHARITY HALL REGISTERED NURSE Signed: 03/28/2024 10:49 Receipt Acknowledged By: 03/28/2024 14:20 /shen/ EMILIE SOUSA ADVANCED PACKAGER HEAD 03/28/2024 ADDENDUM STATUS: COMPLETED DC Summary and relevant records received via RightFax. Sent to [facility] folder to be scanned into CPRS. Evaluated and released from ED for: Laceration without foreigh body of left thumb without damage to nail Followup: with private physician Records sent to [facility] for expedited upload. [facility] alerted via ECR Tool for eligibility review. No further records available. Alerting PCP team to this note for continuity of care. /shen/ YESSI JOHNSON REGISTERED NURSE Signed: 03/28/2024 11:52 Receipt Acknowledged By: 03/28/2024 12:28 /camryn HALL REGISTERED NURSE 03/31/2024 13:38 /shen/ manuel baird M.D. Staff Physician 03/28/2024 ADDENDUM STATUS: COMPLETED correction patient last PCP appointment 02/02/24 /camryn HALL REGISTERED NURSE Signed: 03/28/2024 12:27 03/31/2024 ADDENDUM STATUS: UNSIGNED You may not VIEW this UNSIGNED Addendum. EMILIE SOUSA [facility] March 28, 2024 11:47 AM ADDENDUM: LOCAL TITLE: Addendum STANDARD TITLE: ADDENDUM DATE OF NOTE: MARCH 28, 2024@11:47:44 ENTRY DATE: MARCH 28, 2024@11:47:45 AUTHOR: YESSI JOHNSON EXP COSIGNER: URGENCY: STATUS: COMPLETED DC Summary and relevant records received via RightFax. Sent to [facility] folder to be scanned into CPRS. Evaluated and released from ED for: Laceration without foreigh body of left thumb without damage to nail Followup: with private physician Records sent to [facility] for expedited upload. [facility] alerted via ECR Tool for eligibility review. No further records available. Alerting PCP team to this note for continuity of care. /shen/ YESSI JOHNSON REGISTERED NURSE Signed: 03/28/2024 11:52 Receipt Acknowledged By: 03/28/2024 12:28 /camryn HALL REGISTERED NURSE 03/31/2024 13:38 /shen/ manuel baird M.D. Staff Physician --- Original Document --- 03/21/24 [facility] PRESENTING CARE COORD PLAN 657 STL: Emergency Notification Intake Date Presenting to the Facility: March Method of Contact: Submitted to Centralized Call Center Notification ID: [id number] [facility] Referral #: [facility] Name: Hospital: [facility] Address: [address] [place] [address] City: [place] State: [place] Zip Code: [address] [facility] Facility Point of Contact: Name: [facility] Chief complaint: FINGER INJURY Primary Diagnosis: Disposition Unknown at time of intake note entry Status: 1703 Clinical Review No records pertinent to this ER Visit found in [facility]. Faxed request [facility] records [facility] // SRAVANTHI [facility] ASSISTANT GM OF CONTENT & DELIVERY Signed: 03/26/2024 06:16 Receipt Acknowledged By: 03/28/2024 10:49 /camryn HALL REGISTERED NURSE * AWAITING SIGNATURE * YVONNE CARLSON 03/28/2024 ADDENDUM STATUS: COMPLETED Patient last seen 04/03/24 with a RTC in 3 months. Noted patient is not scheduled for F/U- Will alert MSA to contact patient for Routine F/U appointment. /camryn HALL REGISTERED NURSE Signed: 03/28/2024 10:49 Receipt Acknowledged By: 03/28/2024 14:20 /camryn SOUSA ADVANCED PACKAGER HEAD 03/28/2024 ADDENDUM STATUS: COMPLETED correction patient last PCP appointment 02/02/24 /camryn HALL REGISTERED NURSE Signed: 03/28/2024 12:27 03/28/2024 ADDENDUM STATUS: COMPLETED ALERTING PCP TO PLEASE PLACE RTC FOR SCHEDULING. RTC WAS NOT PLACED FROM LAST VISIT ON 02/02/24. /camryn SOUSA ADVANCED PACKAGER HEAD Signed: 03/28/2024 14:21 Receipt Acknowledged By: * AWAITING SIGNATURE * MANUEL BAIRD GRETCHEN J [facility] March 28, 2024 10:47 AM ADDENDUM: LOCAL TITLE: Addendum STANDARD TITLE: ADDENDUM DATE OF NOTE: MARCH 28, 2024@10:47:22 ENTRY DATE: MARCH 28, 2024@10:47:23 AUTHOR: CHARITY HALL EXP COSIGNER: URGENCY: STATUS: COMPLETED Patient last seen 04/03/24 with a RTC in 3 months. Noted patient is not scheduled for F/U- Will alert MSA to contact patient for Routine F/U appointment. /camryn HALL REGISTERED NURSE Signed: 03/28/2024 10:49 Receipt Acknowledged By: 03/28/2024 14:20 /camryn SOUSA ADVANCED PACKAGER HEAD --- Original Document --- 03/21/24 [facility] SELF PRESENTING CARE COORD PLAN 657 STL: Emergency Notification Intake Date Presenting to the Facility: March Method of Contact: Submitted to Centralized Call Center Notification ID: [id number] HSRM Referral #: [facility] Name: Hospital: [facility] MEDICAL Address: [address] [place] [address] City: [place] State: [place] Zip Code: [address] Community Facility Point of Contact: Name: [facility] Chief complaint: FINGER INJURY Primary Diagnosis: Disposition Unknown at time of intake note entry Status: 1703 Clinical Review No records pertinent to this ER Visit found in JLV. Faxed request for records to [facility] /shen/ SRAVANTHI LONG [facility] ASSISTANT GM OF CONTENT & DELIVERY Signed: 03/26/2024 06:16 Receipt Acknowledged By: 03/28/2024 10:49 /camryn HALL REGISTERED NURSE * AWAITING SIGNATURE * MANUEL BAIRD * AWAITING SIGNATURE * YVONNE CARLSON 03/28/2024 ADDENDUM STATUS: COMPLETED DC Summary and relevant records received via RightFax. Sent to [facility] folder to be scanned into CPRS. Evaluated and released from ED for: Laceration without foreigh body of left thumb without damage to nail Followup: with private physician Records sent to [facility] for expedited upload. [facility] alerted via ECR Tool for eligibility review. No further records available. Alerting PCP team to this note for continuity of care. /shen/ YESSI JOHNSON REGISTERED NURSE Signed: 03/28/2024 11:52 Receipt Acknowledged By: 03/28/2024 12:28 /camryn HALL REGISTERED NURSE * AWAITING SIGNATURE * MANUEL BAIRD 03/28/2024 ADDENDUM STATUS: COMPLETED correction patient last PCP appointment 02/02/24 /camryn HALL REGISTERED NURSE Signed: 03/28/2024 12:27 03/28/2024 ADDENDUM STATUS: UNSIGNED You may not VIEW this UNSIGNED Addendum. CHARITY HALL [facility] March 21, 2024 06:11 AM NONVA NOTE: LOCAL TITLE: COMMUNITY CARE-EYAL SELF PRESENTING CARE COORD PLAN STANDARD TITLE: NONVA NOTE DATE OF NOTE: MARCH 21, 2024@06:11 ENTRY DATE: MARCH 26, 2024@06:11:45 AUTHOR: SRAVANTHI LONG EXP COSIGNER: URGENCY: STATUS: COMPLETED COMMUNITY CARE-EYAL SELF PRESENTING CARE COORD PLAN [address] Has ADDENDA Emergency Notification Intake Date Presenting to the Facility: March Method of Contact: Submitted to Centralized Call Center Notification ID: [id number] [facility] Referral #: [facility] [place] Name: Hospital: [facility] Address: [address] [facility] [facility] City: [place] State: [place] Zip Code: [address] Community Facility Point of Contact: Name: [facility] Chief complaint: FINGER INJURY Primary Diagnosis: Disposition Unknown at time of intake note entry Status: 1703 Clinical Review No records pertinent to this ER Visit found in JLV. Faxed request for records to [facility] /shen/ SRAVANTHI LONG [facility] ASSISTANT GM OF CONTENT & DELIVERY Signed: 03/26/2024 06:16 Receipt Acknowledged By: 03/28/2024 10:49 /camryn HALL REGISTERED NURSE 06/13/2024 15:31 /shen/ MERY Pichardo, RN Bed Discharge Rn 03/28/2024 ADDENDUM STATUS: COMPLETED Patient last seen 04/03/24 with a RTC in 3 months. Noted patient is not scheduled for F/U- Will alert [facility] to contact patient for Routine F/U appointment. /camryn HALL REGISTERED NURSE Signed: 03/28/2024 10:49 Receipt Acknowledged By: 03/28/2024 14:20 /shen/ EMILIE SOUSA ADVANCED PACKAGER HEAD 03/28/2024 ADDENDUM STATUS: COMPLETED DC Summary and relevant records received via Dominox. Sent to [facility] folder to be scanned into CPRS. Evaluated and released from ED for: Laceration without foreigh body of left thumb without damage to nail Followup: with private physician Records sent to [facility] for expedited upload. [facility] alerted via ECR Tool for eligibility review. No further records available. Alerting PCP team to this note for continuity of care. /shen/ YESSI JOHNSON REGISTERED NURSE Signed: 03/28/2024 11:52 Receipt Acknowledged By: 03/28/2024 12:28 /camryn HALL REGISTERED NURSE 03/31/2024 13:38 /shen/ manuel baird M.D. Staff Physician 03/28/2024 ADDENDUM STATUS: COMPLETED correction patient last PCP appointment 02/02/24 /camryn HALL REGISTERED NURSE Signed: 03/28/2024 12:27 03/28/2024 ADDENDUM STATUS: COMPLETED ALERTING PCP TO PLEASE PLACE RTC FOR SCHEDULING. RTC WAS NOT PLACED FROM LAST VISIT ON 02/02/24. /camryn SOUSA ADVANCED PACKAGER HEAD Signed: 03/28/2024 14:21 Receipt Acknowledged By: 03/31/2024 14:13 /camryn baird M.D. Staff Physician 03/31/2024 ADDENDUM STATUS: COMPLETED RTC was put in, but it was displaced due to no residents grids available at that time. Please schedule with next available [place] resident grid. /camryn baird M.D. Staff Physician Signed: 03/31/2024 14:15 Receipt Acknowledged By: 03/31/2024 14:32 /camryn SOUSA ADVANCED PACKAGER HEAD 03/31/2024 ADDENDUM STATUS: COMPLETED THERE IS CURRENTLY NO AVAILABILITY IN ANY OF THE [facility] AT THIS TIME. I WILL CONTINUE TO REVIEW THE RESIDENT CLINIC GRIDS FOR AVAILABILITY DAILY TO SCHEDULE. /camryn SOUSA ADVANCED PACKAGER HEAD Signed: 03/31/2024 14:46 Receipt Acknowledged By: 04/03/2024 17:04 /camryn baird M.D. Staff Physician 04/18/2024 ADDENDUM STATUS: COMPLETED Notification ID: [id number] [facility] Referral ID: [id number] Status: Closed - Approved for 1702 /camryn CARLSON PACKAGER HEAD Signed: 04/18/2024 12:02 SRAVANTHI LONG [facility]
--- OUTSIDE RECORDS SUMMARY | 2024-11-17 03:47 | XMS_ITS ---
Author Name [facility] Organization [facility] Address [address] [place] [address] Care Team Providers Care Varnisher Plasticoater Name Role Phone MANUEL BAIRD Primary Care [...] PART A Apr 08, 2017 PART A [id number] ASHLEY FINK PATIENT Selected Encounter This section includes the information on record at [place] for the Encounter. Date/Time Encounter Type Encounter Description Reason Provider Source March 27, 2024 11:06 AM Outpatient Encounter ADMIN PAT ACTIVTIES (MASNONCT) PETAR MIGUEL Encounter Template Text not used by [place] Plan of Treatment: Future Appointments (+ 6 [...] The data comes from all [facility]. Appointment Date/Time Appointment Type Appointme nt Facility Name March 28, 2024 10:00 AM AMBULATORY - REHAB MEDICIN E [facility] April 04, 2024 09:30 AM AMBULATORY - REHAB MEDICIN E [facility] April 07, 2024 10:15 AM AMBULATORY - MEDICINE [facility] Apr 11, 2024 09:30 AM AMBULATORY - REHAB MEDICIN E [facility] Apr 18, 2024 02:00 PM AMBULATORY - NONE [facility] Apr 20, 2024 10:30 AM AMBULATORY - REHAB MEDICIN E [facility] Apr 21, 2024 11:00 AM AMBULATORY - MEDICINE [facility] 2024 10:00 AM AMBULATORY - MEDICINE [facility] May 02, 2024 10:00 AM AMBULATORY - SURGERY [facility] May 04, 2024 10:30 AM AMBULATORY - REHAB MEDICIN E [facility] May 12, 2024 10:30 AM AMBULATORY - SURGERY . [facility] May 17, 2024 09:00 AM AMBULATORY - MEDICINE [facility] May 18, 2024 10:30 AM AMBULATORY - REHAB MEDICIN E [facility] May 31, 2024 02:00 PM AMBULATORY - SURGERY [facility] Jun 05, 2024 08:40 AM AMBULATORY - NONE [facility] Jun 07, 2024 12:30 PM AMBULATORY - MEDICINE [facility] Jun 07, 2024 01:30 PM AMBULATORY - NONE [facility] Jun 08, 2024 10:00 AM AMBULATORY - MEDICINE [facility] Jun 09, 2024 01:00 PM AMBULATORY - SURGERY . [facility] Jun 19, 2024 07:00 AM AMBULATORY - MEDICINE [facility] Active, Pending, and Scheduled Orders This section includes a listing of several types of active, pending, and scheduled orders, including clinic medications orders, diagnostic test orders, procedure orders and consult orders; where the start date of the order is 45 days before the date of the Encounter or 45 days after the date of theEncounter. The data comes from all [place] treatment facilities. Test Date/Time Test Type Test Details Facility Name March 20, 2024 12:36 PM Consult Order COMMUNITY CARE-STL DENTAL SPEC Cons Coin Dealer's Choice [facility] April 07, 2024 12:00 AM Laboratory - Chemi stry Order OCCULT BLOOD FIT X1 SCREEN STOOL FECES SP [facility] Lab Results: +/- 30 days of the encounter This section includes the Chemistry and Hematology Lab Results on record with [place] for the patient. Radiology Reports and Pathology Reports are provided separately, in subsequent sections. Lab Results This section contains the Chemistry/Hematology Results that were resulted 30 days before or 30 daysafter the date of the Encounter. Date/Time Source Result Type Result - Unit Interpretation Reference Range Comment April 07, 2024 11:40 AM [facility] HIV COMBO [facility] ([facility]) Specimen Type: SERUM No comment entered. Ordering Provider: JAYNE OQUENDO Report Released Date/Time: April 07, 2024 10:44 AM Reporting Lab: [facility] [address] [place] [phone] Performing Lab: [facility] [address] [place] [phone] HIV COMBO [facility] ([facility]) Nonreactive Nonreactive April 07, 2024 11:40 AM [facility] PT/INR NEW ([facility]) Specimen Type: PLASMA No comment entered. Ordering Provider: JAYNE OQUENDO Report Released Date/Time: April 07, 2024 10:44 AM Reporting Lab: [facility] [address] [place] [phone] Performing Lab: [facility] [address] [place] [phone] PROTIME 13.0 s H 9.4-12.5 INR VALUE 1.2 {INR} April 07, 2024 11:40 AM [facility] HEP C Ab HCV Ab (STL) Specimen Type: SERUM No comment entered. Ordering Provider: JAYNE OQUENDO Report Released Date/Time: April 07, 2024 10:44 AM Reporting Lab: [address] [address] Performing Lab: [address] [address] HEP C Ab HCV Ab (L) Nonreactive Nonreactive April 07, 2024 11:40 AM [facility] LIPID PANEL (L) Specimen Type: PLASMA No comment entered. Ordering Provider: JAYNE OQUENDO Report Released Date/Time: April 07, 2024 11:14 AM Reporting Lab: [place] [id number] Performing Lab: [address] [address] CHOLESTEROL 180 mg/dL 0-200 TRIGLYCERIDE 145 mg/dL 0-150 CALCULATED LDL 117 mg/dL HDL(New) 34 mg/dL L >40 April 07, 2024 11:40 AM [facility] CBC Specimen Type: BLOOD Comment: No clots Ordering Provider: JAYNE OQUENDO Report Released Date/Time: April 07, 2024 10:44 AM Reporting Lab: [address] [address] Performing Lab: [address] [address] WBC 4.4 10*3/uL 3.6-11.2 RBC 5.01 10*6/uL [...] SCRNPERF YES April 07, 2024 10:01 AM [facility] GLUCOSE,BLOOD-poct (STL) Specimen Type: BLOOD Comment: Test Performed by: [id number] Meter #: [id number] Ordering Provider: MANUEL BAIRD Report Released Date/Time: April 07, 2024 02:51 PM Reporting Lab: [address] [address] Performing Lab: [address] [address] GLUCOSE,BLOOD- poct (STL) 206 mg/dL H 72-99 Mar 06, 2024 10:03 AM [facility] MICRAL/CREAT PROFILE (STL) Specimen Type: URINE No comment entered. Ordering Provider: MANUEL BAIRD Report Released Date/Time: Mar 06, 2024 09:47 AM Reporting Lab: [facility] [address] [place] [phone] Performing Lab: [facility] [address] [place] [phone] URINE ALBUMIN (PB-STL) 114.8 mg/L uACR (STL) 59 mg/g H 0-29 CREATININE URINE/OTHERS 193.6 mg/dL H 63-166 Mar 06, 2024 09:52 AM [facility] HGA1C Specimen Type: BLOOD No comment entered. Ordering Provider: MANUEL BAIRD Report Released Date/Time: Mar 06, 2024 09:47 AM Reporting Lab: [facility] [address] [place] [phone] Performing Lab: [facility] [address] [place] [phone] HGA1C 7.0 H 4.0-6.0 Mar 06, 2024 09:52 AM [facility] LIPID PANEL (STL) Specimen Type: PLASMA Comment: No hemolysis noted. Ordering Provider: MANUEL BAIRD Report Released Date/Time: Mar 06, 2024 09:47 AM Reporting Lab: [facility] [address] [facility] [address] Performing Lab: [facility] [address] [place] [phone] CHOLESTEROL 161 mg/dL 0-200 TRIGLYCERIDE 119 mg/dL 0-150 CALCULATED LDL 107 mg/dL HDL(New) 30 mg/dL L >40 Mar 06, 2024 09:52 AM [facility] PROST. SPECIFIC AG.(PB-STL) Specimen Type: SERUM Comment: The listed sex of this patient may not be a typical indication for this test. Therefore, reference ranges or interpretive criteria listed may not be valid. Clinical correlation suggested. Ordering Provider: MANUEL BAIRD Report Released Date/Time: Mar 06, 2024 09:47 AM Reporting Lab: [facility] [address] [place] [phone] Performing Lab: [address] [address] PROST. SPECIFIC AG.(PB-STL) 0.919 ng/mL 0-4 Mar 06, 2024 09:52 AM [facility] COMPREHENSIVE METABOLIC PANEL Specimen Type: PLASMA Comment: No hemolysis noted. Ordering Provider: MANUEL BAIRD Report Released Date/Time: Mar 06, 2024 09:47 AM Reporting Lab: [facility] [address] [place] [phone] Performing Lab: [address] [address] CREATININE 0.87 mg/dL 0.7-1.3 UREA NITROGEN 14.7 [...] 92.3 >60 Mar 06, 2024 09:52 AM [facility] TSH (MA-PB) Specimen Type: SERUM Comment: The listed sex of this patient may not be a typical indication for this test. Therefore, reference ranges or interpretive criteria listed may not be valid. Clinical correlation suggested. Ordering Provider: MANUEL BAIRD Report Released Date/Time: Mar 06, 2024 09:47 AM Reporting Lab: [facility] [address] [place] [phone] Performing Lab: [address] [phone] TSH 2.984 u[IU]/mL 0.47-5 Mar 06, 2024 09:52 AM [facility] CBC Specimen Type: BLOOD No comment entered. Ordering Provider: MANUEL BAIRD Report Released Date/Time: Mar 06, 2024 09:47 AM Reporting Lab: [facility] [address] [place] [phone] Performing Lab: [address] [address] WBC 4.4 10*3/uL 3.6-11.2 RBC 5.19 10*6/uL [...] and tobacco- related health factors from the [place] facility where the Encounter took place. Current Smoking Status This section includes the most current smoking, or tobacco-related health factor, from the [place] facility where the Encounter took place. Date/Time Current Smoking Status Comment Radhika goins Aug 11, 2016 10:34 AM QUIT TOBACCO >7 YEARS AGO [facility] Tobacco Use History This section includes a history of the smoking, or tobacco-related health factors, that were collected on or before the date of the Encounter. The data comes from the [place] facility where the Encounter took place. Date/Time Smoking Status/Tobacco Use Comment Juan acility Sep 30, 2015 10:12 AM QUIT TOBACCO >7 YEARS AGO [facility] Oct 29, 2014 10:23 AM QUIT TOBACCO >7 YEARS AGO [facility] Dec 27, 2013 01:27 PM QUIT TOBACCO >7 YEARS AGO [facility] Feb 24, 2013 02:01 PM LIFETIME NON-USER OF TOBACCO [facility] Feb 11, 2009 10:09 AM QUIT TOBACCO >7 YEARS AGO [facility] Oct 06, 2006 09:30 AM CURRENT NON-TOBACC O USER-HX OF USE [facility] Oct 06, 2006 09:30 AM TOBACCO TERMINATION STAGE [facility] Advance Directives: All historical and current Section Date Range: From patient's date of to the date document was created. This section includes ALL of a patient's completed or amended [place] Advance and Rescinded Directives. The entries below indicate that a directive exists for the patient, but an actual copy is not included with this document. The data comes from all [place] facilities. Date Advance Directives Provider Source Jan 19, 2017 ADVANCE DIRECTIVE DISCUSSION ERICK BARDALES [facility] Radiology Reports: +/- 30 days of [...] the Encounter. The data comes from all [place] treatment facilities. Date/Time Radiology Report Provider Source March 15, 2024 08:01 AM US ABDOMEN COMPLET E W/BLOOD FLOW DOPPLER (STL): ABIEL FINK [id number] -[id number] M Exm Date: MARCH 15, 2024@08:01 Req Phys: MANUEL BAIRD Pat Loc: [facility] PACT STAR RES 4 (Req'g Img Loc: [facility]-ULTRASOUND Service: Unknown [facility], [facility] [address] [place] [address] (Case [id number] COMPLETE) US ABDOMEN COMPLETE REDUCE SERVIC(US Detailed) CPT:30021 CPT Modifiers : 52 REDUCED SERVICES Reason for Study: thrombocytopenia, please check liver and spleen. (Case [id number] COMPLETE) US BLOOD FLOW ABD/RENAL DOPPLER ((US Detailed) CPT:84768 Clinical History: Report Status: Verified Date Reported: MARCH 15, 2024 Date Verified: MARCH 15, 2024 Polymer Tester E-Sig:/ES/YESICA LOWERY MD Report: US ABDOMEN COMPLETE REDUCE SERVICE, US BLOOD FLOW ABD/RENAL DOPPLER (COMPLETE) [id number], [id number] DATE: 03/15/2024 8:01 AM EXAM: ABDOMINAL ULTRASOUND [id number], [id number] HISTORY: thrombocytopenia, please check liver and spleen. [...] measuring 15.6 cm in length. I, Yesica Lowery, have reviewed the images and report and concur with these findings. Primary Interpreting Staff: YESICA LOWERY MD, STAFF RADIOLOGIST (Polymer Tester) Primary Interpreting Resident: Flory Guzman MD, Resident Physician /YESICA SALGUERO [facility] Encounter Notes: All associated encounter notes This section contains the clinical notes associated to the Encounter. Date/Time Encounter Note(s) Provider Source March 27, 2024 11:06 AM PHYSICIAN LETTERS: LOCAL TITLE: NO SHOW LETTER STL STANDARD TITLE: PHYSICIAN LETTERS DATE OF NOTE: MARCH 27, 2024@11:06 ENTRY DATE: MARCH 27, 2024@11:07:02 AUTHOR: DAHLIA SENA EXP COSIGNER: URGENCY: STATUS: COMPLETED [facility] [address] [place] [address] MARCH 27, 2024 ABIEL FINK [address] [place], [place] [address] Dear Abiel Fink, Thank you for choosing the [facility] as your primary choice for health care. As a partner in your health care, we are attempting to contact you because our records indicate that you did not make it to your scheduled appointment, and we would like to re-schedule. Please call us at [phone], extension [phone] to speak to us regarding making an appointment in the [facility] clinic. Your good health is important to [...] the clinic to inquire about scheduling. Sincerely, JAREK ESPARZA Advanced Sheepskin Pickler ABIEL FINK MIKITA [address] [facility]
--- OUTSIDE RECORDS SUMMARY | 2024-11-17 03:47 | XMS_ITS | Encounter Summary ---
Author Name [facility] [place] Organization [place] Address [address] [place] [address] Care Team Providers Care Plum Packer Name Role Phone MANUEL BAIRD Primary Care [...] PART A Apr 08, 2017 PART A [id number] [phone] ASHLEY FINK PATIENT Selected Encounter This section includes the information on record at [place] for the Encounter. Date/Time Encounter Type Encounter Description Reason Pro vider Source April 04, 2024 09:57 AM Outpatient Encounter PHYSICAL THERAPY IHE Encounter Template Text not used by [...] 20 appointments. The data comes from all [facility]. Appointment Date/Time Appointment Type Appointme nt Facility Name April 07, 2024 10:15 AM AMBULATORY - MEDICINE [facility] Apr 11, 2024 09:30 AM AMBULATORY - REHAB MEDICIN E [facility] Apr 18, 2024 02:00 PM AMBULATORY - NONE [facility] Apr 20, 2024 10:30 AM AMBULATORY - REHAB MEDICIN E [facility] Apr 21, 2024 11:00 AM AMBULATORY - MEDICINE [facility] 2024 10:00 AM AMBULATORY - MEDICINE [facility] May 02, 2024 10:00 AM AMBULATORY - SURGERY . [facility] May 04, 2024 10:30 AM AMBULATORY - [facility]HAB [facility] May 12, 2024 10:30 AM AMBULATORY - SURGERY . [facility] May 17, 2024 09:00 AM AMBULATORY - MEDICINE [facility] May 18, 2024 10:30 AM AMBULATORY - REHAB MEDICIN E [facility] May 31, 2024 02:00 PM AMBULATORY - SURGERY [facility] Jun 05, 2024 08:40 AM AMBULATORY - NONE [facility] Jun 07, 2024 12:30 PM AMBULATORY - MEDICINE [facility] Jun 07, 2024 01:30 PM AMBULATORY - NONE [facility] Jun 08, 2024 10:00 AM AMBULATORY - MEDICINE [facility] Jun 09, 2024 01:00 PM AMBULATORY - SURGERY [facility] Jun 19, 2024 07:00 AM AMBULATORY - MEDICINE [facility] Jun 19, 2024 08:00 AM AMBULATORY - NONE [facility] Jun 29, 2024 10:15 AM AMBULATORY - MEDICINE [facility] Active, Pending, [...] Consult Order COMMUNITY CARE-STL DENTAL SPEC Cons Economic History Teacher's Choice [facility] April 07, 2024 12:00 AM Laboratory - Chemi stry Order OCCULT BLOOD FIT X1 SCREEN STOOL FECES SP ED [facility] Lab Results: +/- 30 days [...] Range Comment April 07, 2024 11:40 AM ED [facility] HIV COMBO FOURTH GENERATION (STL) Specimen Type: SERUM No comment entered. Ordering Provider: JAYNE OQUENDO Report Released Date/Time: April 07, 2024 10:44 AM Reporting Lab: [facility] [address] [facility] [address] Performing Lab: [address] [address] HIV COMBO FOURTH GENERATION (STL) Nonreactive Nonreactive April 07, 2024 11:40 AM ED [facility] PT/INR NEW ([facility]) Specimen Type: PLASMA No comment entered. Ordering Provider: JAYNE OQUENDO Report Released Date/Time: April 07, 2024 10:44 AM Reporting Lab: [facility] [address] Performing Lab: [facility] [address] [place] [address] PROTIME 13.0 s H 9.4-12.5 INR VALUE 1.2 {INR} April 07, 2024 11:40 AM ED [facility] HEP C Ab HCV Ab ([facility]) Specimen Type: SERUM No comment entered. Ordering Provider: JAYNE OQUENDO Report Released Date/Time: April 07, 2024 10:44 AM Reporting Lab: [facility] [address] [place] [address] Performing Lab: [address] [address] HEP C Ab HCV Ab (L) Nonreactive Nonreactive April 07, 2024 11:40 AM ED [facility] LIPID PANEL (L) Specimen Type: PLASMA No comment entered. Ordering Provider: JAYNE OQUENDO Report Released Date/Time: April 07, 2024 11:14 AM Reporting Lab: [address] [address] Performing Lab: [address] [address] CHOLESTEROL 180 mg/dL 0-200 TRIGLYCERIDE 145 mg/dL 0-150 CALCULATED LDL 117 mg/dL HDL(New) 34 mg/dL L >40 April 07, 2024 11:40 AM ED [facility] CBC Specimen Type: BLOOD Comment: No clots Ordering Provider: JAYNE OQUENDO Report Released Date/Time: April 07, 2024 10:44 AM Reporting Lab: [address] [address] Performing Lab: [address] [address] WBC 4.4 10*3/uL 3.6-11.2 RBC 5.01 10*6/uL [...] SCRNPERF YES April 07, 2024 10:01 AM ED [facility] GLUCOSE,BLOOD-poct (STL) Specimen Type: BLOOD Comment: Test Performed by: [id number] Meter #: [id number] Ordering Provider: MANUEL BAIRD Report Released Date/Time: April 07, 2024 02:51 PM Reporting Lab: [address] [address] Performing Lab: [address] [address] GLUCOSE,BLOOD- poct (STL) 206 mg/dL H 72-99 Mar 06, 2024 10:03 AM ED [facility] MICRAL/CREAT PROFILE (STL) Specimen Type: URINE No comment entered. Ordering Provider: MANUEL BAIRD Report Released Date/Time: Mar 06, 2024 09:47 AM Reporting Lab: [facility] [address] [place] [address] Performing Lab: [facility] [address] [place] [address] URINE ALBUMIN (PB-STL) 114.8 mg/L uACR (STL) 59 mg/g H 0-29 CREATININE URINE/OTHERS 193.6 mg/dL H 63-166 Mar 06, 2024 09:52 AM ED [facility] HGA1C Specimen Type: BLOOD No comment entered. Ordering Provider: MANUEL BAIRD Report Released Date/Time: Mar 06, 2024 09:47 AM Reporting Lab: [facility] [address] [place] [address] Performing Lab: [facility] [address] [place] [address] HGA1C 7.0 H 4.0-6.0 Mar 06, 2024 09:52 AM ED [facility] LIPID PANEL (STL) Specimen Type: PLASMA Comment: No hemolysis noted. Ordering Provider: MANUEL BAIRD Report Released Date/Time: Mar 06, 2024 09:47 AM Reporting Lab: [facility] [address] [facility] [address] Performing Lab: [address] [address] CHOLESTEROL 161 mg/dL 0-200 TRIGLYCERIDE 119 mg/dL 0-150 CALCULATED LDL 107 mg/dL HDL(New) 30 mg/dL L >40 Mar 06, 2024 09:52 AM ED [facility] PROST. SPECIFIC AG.(PB-STL) Specimen Type: SERUM Comment: The listed sex of this patient may not be a typical indication for this test. Therefore, reference ranges or interpretive criteria listed may not be valid. Clinical correlation suggested. Ordering Provider: MANUEL BAIRD Report Released Date/Time: Mar 06, 2024 09:47 AM Reporting Lab: [address] [address] Performing Lab: [address] [address] PROST. SPECIFIC AG.(PB-STL) 0.919 ng/mL 0-4 Mar 06, 2024 09:52 AM ED [facility] COMPREHENSIVE METABOLIC PANEL Specimen Type: PLASMA Comment: No hemolysis noted. Ordering Provider: MANUEL BAIRD Report Released Date/Time: Mar 06, 2024 09:47 AM Reporting Lab: [facility] [address] [place] [address] Performing Lab: [address] [address] CREATININE 0.87 mg/dL 0.7-1.3 UREA NITROGEN 14.7 [...] 92.3 >60 Mar 06, 2024 09:52 AM ED [facility] TSH (MA-PB) Specimen Type: SERUM Comment: The listed sex of this patient may not be a typical indication for this test. Therefore, reference ranges or interpretive criteria listed may not be valid. Clinical correlation suggested. Ordering Provider: MANUEL BAIRD Report Released Date/Time: Mar 06, 2024 09:47 AM Reporting Lab: [address] [address] Performing Lab: [address] [address] TSH 2.984 u[IU]/mL 0.47-5 Mar 06, 2024 09:52 AM ED [facility] CBC Specimen Type: BLOOD No comment entered. Ordering Provider: MANUEL BAIRD Report Released Date/Time: Mar 06, 2024 09:47 AM Reporting Lab: [facility] [address] [place] [address] Performing Lab: [address] [address] WBC 4.4 10*3/uL 3.6-11.2 RBC 5.19 10*6/uL [...] 19, 2017 ADVANCE DIRECTIVE DISCUSSION ERICK BARDALES [facility] Radiology Reports: +/- 30 days of [...] COMPLET E W/BLOOD FLOW DOPPLER (STL): CHET FINK [id number] -1950 M Exm Date: MARCH 15, 2024@08:01 Req Phys: MANUEL BAIRD Loc: [facility]-MAN PACT STAR RES 4 (Req'g Img Loc: [facility]ASH-ULTRASOUND Service: Unknown [facility] [address] [place] [address] (Case [id number] COMPLETE) US ABDOMEN COMPLETE REDUCE SERVIC(US Detailed) CPT:10505 CPT Modifiers : 52 REDUCED SERVICES Reason for Study: thrombocytopenia, please check liver and spleen. (Case [id number] COMPLETE) US BLOOD FLOW ABD/RENAL DOPPLER ((US Detailed) CPT:00845 Clinical History: Report Status: Verified Date Reported: MARCH 15, 2024 Date Verified: MARCH 15, 2024 Director Of Direct Marketing E-Sig:/ES/DILEEP LOWERY MD Report: US ABDOMEN COMPLETE REDUCE SERVICE, US BLOOD FLOW ABD/RENAL DOPPLER (COMPLETE) [id number], [id number] DATE: 03/15/2024 8:01 AM EXAM: ABDOMINAL ULTRASOUND [id number], [id number] HISTORY: thrombocytopenia, please check liver and spleen. [...] Interpreting Staff: DILEEP LOWERY MD, STAFF RADIOLOGIST (Director Of Direct Marketing) Primary Interpreting Resident: Flory Guzman MD, Resident Physician /DILEEP SALGUERO [facility] Encounter Notes: All associated encounter notes This section contains the clinical notes associated to the Encounter. Date/Time Encounter Note(s) Provider Source April 04, 2024 09:57 AM PHYSICIAN LETTERS: LOCAL TITLE: NO SHOW LETTER STL STANDARD TITLE: PHYSICIAN LETTERS DATE OF NOTE: APRIL 04, 2024@09:57 ENTRY DATE: APRIL 04, 2024@09:57:28 AUTHOR: APRIL LYNCH EXP COSIGNER: URGENCY: STATUS: COMPLETED [facility] [address] [place] [address] APRIL 04, 2024 CHET FINK [address] [place], [place] [address] Dear Chet Fink, Thank you for choosing the [facility] as your primary choice for health care. As a partner in your health care, we are attempting to contact you because our records indicate that you did not make it to your scheduled appointment, and we would like to re-schedule. Please call us at [phone], extension [phone] to speak to us regarding making an appointment in the [facility]-PT SOFTWARE APPLICATIONS ARCHITECT 2 clinic. Your good health is important [...] the clinic to inquire about scheduling. Sincerely, APRIL LYNCH [employer] CHET [place] [facility] [place] [facility]
--- OUTSIDE RECORDS SUMMARY | 2024-11-17 03:47 | XMS_ITS ---
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 Date/Time Encounter Type Encounter Description Reason Provider Source Mar 06, 2024 09:20 AM [place] [employer] TELEPHONE/RIA SWAN ICD-10-CM Z71.89 Other specified counseling JOAN GUPTA Encounter Template Text not used by [place] Assessments - Encounter Diagnoses This section includes the primary and secondary diagnoses documented for the Encounter. Date/Time Primary/Secondary Diagnosis Diagnosis Name Provider Source Mar 06, 2024 09:20 AM PRIMARY Other specified counseling JOAN GUPTA [facility] Plan of Treatment: Future Appointments (+ 6 months) and Future Tests (+/- 45 days) The Plan of Treatment section includes future care activities for the patient from all [facility]. This section includes future appointments and future orders which are active, pending or scheduled. Future Appointments This section includes appointments that were scheduled to occur 6 months from the date of the Encounter, up to a maximum of 20 appointments. The data comes from all [facility]. Appointment Date/Time Appointment Type Appointme nt Facility Name March 15, 2024 09:00 AM AMBULATORY - NONE [facility] March 16, 2024 09:30 AM AMBULATORY - MEDICINE [facility] March 20, 2024 09:30 AM AMBULATORY - MEDICINE [facility] March 21, 2024 09:30 AM AMBULATORY - REHAB MEDICIN [facility] March 27, 2024 08:30 AM AMBULATORY - NONE [facility] March 28, 2024 10:00 AM AMBULATORY - REHAB MEDICIN [facility] April 04, 2024 09:30 AM AMBULATORY - REHAB MEDICIN [facility] April 07, 2024 10:15 AM AMBULATORY - MEDICINE [facility] Apr 11, 2024 09:30 [facility] Apr 18, 2024 02:00 PM AMBULATORY - NONE [facility] Apr 20, 2024 10:30 AM AMBULATORY - REHAB MEDICIN [facility] Apr 21, 2024 11:00 AM AMBULATORY - MEDICINE [facility] 2024 10:00 AM AMBULATORY - MEDICINE [facility] May 02, 2024 10:00 AM AMBULATORY - SURGERY [facility] May 04, 2024 10:30 AM AMBULATORY - REHAB MEDICIN [facility] May 12, 2024 10:30 AM AMBULATORY - SURGERY [facility] May 17, 2024 09:00 AM AMBULATORY - MEDICINE [facility] May 18, 2024 10:30 AM AMBULATORY - REHAB MEDICIN E [facility] May 31, 2024 02:00 PM AMBULATORY - SURGERY [facility] Jun 05, 2024 08:40 AM AMBULATORY - NONE [facility] Active, Pending, and Scheduled [...] OCCULT BLOOD FIT X1 SCREEN STOOL FECES [facility] March 20, 2024 12:36 PM Consult Order COMMUNITY CARE-STL DENTAL SPEC Cons Mechanical Integrity Engineer's Choice [facility] April 07, 2024 12:00 AM Laboratory - Chemi stry Order OCCULT BLOOD FIT X1 SCREEN STOOL FECES [facility] Lab Results: +/- 30 days of the encounter This section includes the Chemistry and Hematology Lab Results on record with [place] for the patient. Radiology Reports and Pathology Reports are provided separately, in subsequent sections. Lab Results This section contains the Chemistry/Hematology Results that were resulted 30 days before or 30 daysafter the date of the Encounter. Date/Time Source Result Type Result - Unit Interpretation Reference Range Comment Mar 06, 2024 10:03 AM [facility] MICRAL/CREAT PROFILE (STL) Specimen Type: URINE No comment entered. Ordering Provider: MANUEL BAIRD Report Released Date/Time: Mar 06, 2024 09:47 AM Reporting Lab: [facility] [address] [facility] [address] Performing Lab: [facility] [address] [facility] [address] URINE ALBUMIN (PB-STL) 114.8 mg/L uACR (STL) 59 mg/g H 0-29 CREATININE URINE/OTHERS 193.6 mg/dL H 63-166 Mar 06, 2024 09:52 AM [facility] HGA1C Specimen Type: BLOOD No comment entered. Ordering Provider: MANUEL BAIRD Report Released Date/Time: Mar 06, 2024 09:47 AM Reporting Lab: [facility] [address] [facility] [address] Performing Lab: [facility] [address] [facility] [address] HGA1C 7.0 H 4.0-6.0 Mar 06, 2024 09:52 AM [facility] LIPID PANEL (STL) Specimen Type: PLASMA Comment: No hemolysis noted. Ordering Provider: MANUEL BAIRD Report Released Date/Time: Mar 06, 2024 09:47 AM Reporting Lab: [facility] [address] [facility] [address] Performing Lab: [address] [address] CHOLESTEROL 161 mg/dL 0-200 TRIGLYCERIDE 119 mg/dL 0-150 CALCULATED LDL 107 mg/dL HDL(New) 30 mg/dL L >40 Mar 06, 2024 09:52 AM [facility] PROST. SPECIFIC AG.(PB-STL) Specimen Type: SERUM Comment: The listed sex of this patient may not be a typical indication for this test. Therefore, reference ranges or interpretive criteria listed may not be valid. Clinical correlation suggested. Ordering Provider: MANUEL BAIRD Report Released Date/Time: Mar 06, 2024 09:47 AM Reporting Lab: [address] [address] Performing Lab: [facility] [address] [place] [phone] PROST. SPECIFIC AG.(PB-STL) 0.919 ng/mL 0-4 Mar 06, 2024 09:52 AM [facility] COMPREHENSIVE METABOLIC PANEL Specimen Type: PLASMA Comment: No hemolysis noted. Ordering Provider: MANUEL BAIRD Report Released Date/Time: Mar 06, 2024 09:47 AM Reporting Lab: [facility] [address] [facility] [address] Performing Lab: [facility] [address] [place] [address] CREATININE 0.87 mg/dL 0.7-1.3 UREA NITROGEN 14.7 [...] 92.3 >60 Mar 06, 2024 09:52 AM [facility] TSH (MA-PB) Specimen Type: SERUM Comment: The listed sex of this patient may not be a typical indication for this test. Therefore, reference ranges or interpretive criteria listed may not be valid. Clinical correlation suggested. Ordering Provider: MANUEL BAIRD Report Released Date/Time: Mar 06, 2024 09:47 AM Reporting Lab: [facility] [address] [facility] [address] Performing Lab: [facility] [address] [facility] [address] TSH 2.984 u[IU]/mL 0.47-5 Mar 06, 2024 09:52 AM [facility] CBC Specimen Type: BLOOD No comment entered. Ordering Provider: MANUEL BAIRD Report Released Date/Time: Mar 06, 2024 09:47 AM Reporting Lab: [facility] [address] [facility] [address] Performing Lab: [facility] [address] [facility] [address] WBC 4.4 10*3/uL 3.6-11.2 RBC 5.19 10*6/uL [...] CURRENT NON-TOBACC O USER-HX OF USE [facility] Oct 06, 2006 09:30 AM TOBACCO TERMINATION STAGE [facility] Advance Directives: All historical and [...] 2017 ADVANCE DIRECTIVE DISCUSSION ERICK BARDALES [facility] Radiology Reports: +/- 30 days [...] E W/BLOOD FLOW DOPPLER (STL): CHET WALKER [id number] -1950 M Exm Date: MARCH 15, 2024@08:01 Req Phys: MANUEL BAIRD Loc: YASH-MAN PACT STAR RES 4 (Req'g Img Loc: YASH-ULTRASOUND Y[facility] Service: Unknown [facility] [address] [place] [address] (Case [id number] COMPLETE) US ABDOMEN COMPLETE REDUCE SERVIC(US Detailed) CPT:65299 CPT Modifiers : 52 REDUCED SERVICES Reason for Study: thrombocytopenia, please check liver and spleen. (Case [id number] COMPLETE) US BLOOD FLOW ABD/RENAL DOPPLER ((US Detailed) CPT:37421 Clinical History: Report Status: Verified Date Reported: MARCH 15, 2024 Date Verified: MARCH 15, 2024 Journeyman Press Operator E-Sig:/ES/YESICA LOWERY MD Report: US ABDOMEN COMPLETE REDUCE SERVICE, US BLOOD FLOW ABD/RENAL DOPPLER (COMPLETE) [id number], [id number] DATE: 03/15/2024 8:01 AM EXAM: ABDOMINAL ULTRASOUND [id number], [id number] HISTORY: thrombocytopenia, please check liver and spleen. [...] Interpreting Staff: YESICA LOWERY MD, STAFF RADIOLOGIST (Journeyman Press Operator) Primary Interpreting Resident: Flory Guzman MD, Resident Physician /YESICA SALGUERO [facility] Encounter Notes: All associated encounter notes This section contains the clinical notes associated to the Encounter. Date/Time Encounter Note(s) Provider Source Mar 06, 2024 09:33 AM [facility] NOTE: LOCAL TITLE: WHOLE HEALTH OUTREACH STANDARD TITLE: [facility] NOTE DATE OF NOTE: MAR 06, 2024@09:33 ENTRY DATE: MAR 06, 2024@09:33:53 AUTHOR: JOAN GUPTA EXP COSIGNER: URGENCY: STATUS: COMPLETED Whole health education was delivered to this [place] using the approach below: Individual Gave short overview During in reach at the [facility], Vet was introduced to [facility] prior but would like to attend [facility] [facility]. Vet stated [place] is too far and may attend the [employer] near home. Staff provided information on [facility] shuttle to [place]. If Vet has questions he will call scheduling line /shen/ JOAN Segura GUPTA [employer] Signed: 03/06/2024 09:45 JOAN GUPTA [facility]
--- OUTSIDE RECORDS SUMMARY | 2024-11-17 03:47 | XMS_ITS | Encounter Summary ---
Author Name [facility] [place] [facility] [place] Address [address] [place] [address] Care Team Providers Care Computer Aided Design Technician Name Role Phone MANUEL BAIRD Primary Care [...] PART A Apr 08, 2017 PART A [id number] [phone] ASHLEY WALKER PATIENT Selected Encounter This section includes the information on record at CT for the Encounter. Date/Time Encounter Type Encounter Description Reason Provider Source March 20, 2024 09:30 AM INTRAORAL PERIAPICAL FIRST DENTAL ICD-10-CM Z01.20 Encounter for dental exam and cleaning w/o abnormal findings KASSIDY DENNIS Encounter Template Text not used by CT Assessments - Encounter Diagnoses This section includes the primary and secondary diagnoses documented for the Encounter. Date/Time Primary/Secondary Diagnosis Diagnosis Name Provider Source March 20, 2024 12:54 PM PRIMARY Encounter for dental exam and cleaning w/o abnormal findings KASSIDY DENNIS [facility] Plan of Treatment: Future Appointments (+ 6 months) and Future Tests (+/- 45 days) The Plan of Treatment section includes future care activities for the patient from all [facility] This section includes future appointments and future orders which are active, pending or scheduled. Future Appointments This section includes appointments that were scheduled to occur 6 months from the date of the Encounter, up to a maximum of 20 appointments. The data comes from all [facility]. Appointment Date/Time Appointment Type Appointme nt Facility Name March 21, 2024 09:30 AM AMBULATORY - REHAB MEDICIN E [facility] March 27, 2024 08:30 AM AMBULATORY - NONE [facility] March 28, 2024 10:00 AM AMBULATORY - REHAB MEDICIN [facility] April 04, 2024 09:30 AM AMBULATORY - REHAB MEDICIN [facility] April 07, 2024 10:15 AM AMBULATORY - MEDICINE [facility] Apr 11, 2024 09:30 AM AMBULATORY - REHAB MEDICIN E [facility] Apr 18, 2024 02:00 PM AMBULATORY - NONE [facility] Apr 20, 2024 10:30 AM AMBULATORY - REHAB MEDICIN [facility] Apr 21, 2024 11:00 AM AMBULATORY - MEDICINE [facility] 2024 10:00 AM AMBULATORY - MEDICINE [facility] May 02, 2024 10:00 AM AMBULATORY - SURGERY [facility] May 04, 2024 10:30 AM AMBULATORY - REHAB MEDICIN E [facility] May 12, 2024 10:30 AM AMBULATORY - SURGERY [facility] May 17, 2024 09:00 AM AMBULATORY - MEDICINE [facility] May 18, 2024 10:30 AM AMBULATORY - REHAB MEDICIN E [facility] May 31, 2024 02:00 PM AMBULATORY - SURGERY [facility] Jun 05, 2024 08:40 AM AMBULATORY - NONE [facility] Jun 07, 2024 12:30 PM AMBULATORY - MEDICINE [facility] Jun 07, 2024 01:30 PM AMBULATORY - NONE [facility] Jun 08, 2024 10:00 AM AMBULATORY - MEDICINE [facility] Active, Pending, and Scheduled Orders This section [...] Consult Order [facility] DENTAL SPEC Cons Student Development Coordinator's Choice [facility] April 07, 2024 12:00 AM Laboratory - Chemi stry Order OCCULT BLOOD FIT X1 SCREEN STOOL FECES SP [facility] Lab Results: +/- 30 days of the [...] Range Comment April 07, 2024 11:40 AM [facility] HIV COMBO FOURTH GENERATION (STL) Specimen Type: SERUM No comment entered. Ordering Provider: JAYNE OQUENDO Report Released Date/Time: April 07, 2024 10:44 AM Reporting Lab: [facility] [address] [place] [address] Performing Lab: [facility] [address] [address] HIV COMBO FOURTH GENERATION (STL) Nonreactive Nonreactive April 07, 2024 11:40 AM [facility] PT/INR NEW (STL-MA) Specimen Type: PLASMA No comment entered. Ordering Provider: JAYNE OQUENDO Report Released Date/Time: April 07, 2024 10:44 AM Reporting Lab: [facility] [address] [address] Performing Lab: [facility] [address] [facility] [address] PROTIME 13.0 s H 9.4-12.5 INR VALUE 1.2 {INR} April 07, 2024 11:40 AM [facility] HEP C Ab HCV Ab (L) Specimen Type: SERUM No comment entered. Ordering Provider: JAYNE OQUENDO Report Released Date/Time: April 07, 2024 10:44 AM Reporting Lab: [address] [address] Performing Lab: [address] [address] HEP C Ab HCV Ab (L) Nonreactive Nonreactive April 07, 2024 11:40 AM [facility] LIPID PANEL (L) Specimen Type: PLASMA No comment entered. Ordering Provider: JAYNE OQUENDO Report Released Date/Time: April 07, 2024 11:14 AM Reporting Lab: [address] [address] Performing Lab: [address] [address] CHOLESTEROL 180 mg/dL 0-200 TRIGLYCERIDE 145 mg/dL 0-150 CALCULATED LDL 117 mg/dL HDL(New) 34 mg/dL L >40 April 07, 2024 11:40 AM [facility] CBC Specimen Type: BLOOD Comment: No clots Ordering Provider: JAYNE OQUENDO Report Released Date/Time: April 07, 2024 10:44 AM Reporting Lab: [address] [address] Performing Lab: [address] [address] WBC 4.4 10*3/uL 3.6-11.2 RBC 5.01 10*6/uL [...] SCRNPERF YES April 07, 2024 10:01 AM [facility] GLUCOSE,BLOOD-poct (STL) Specimen Type: BLOOD Comment: Test Performed by: [id number] Meter #: [id number] Ordering Provider: MANUEL BAIRD Report Released Date/Time: April 07, 2024 02:51 PM Reporting Lab: [address] [address] Performing Lab: [address] [address] GLUCOSE,BLOOD- poct (STL) 206 mg/dL H 72-99 Mar 06, 2024 10:03 AM [facility] MICRAL/CREAT PROFILE (STL) Specimen Type: URINE No comment entered. Ordering Provider: MANUEL BAIRD Report Released Date/Time: Mar 06, 2024 09:47 AM Reporting Lab: [facility] [address] [address] Performing Lab: [facility] [address] [facility] [address] URINE ALBUMIN (PB-STL) 114.8 mg/L uACR (STL) 59 mg/g H 0-29 CREATININE URINE/OTHERS 193.6 mg/dL H 63-166 Mar 06, 2024 09:52 AM [facility] HGA1C Specimen Type: BLOOD No comment entered. Ordering Provider: MANUEL BAIRD Report Released Date/Time: Mar 06, 2024 09:47 AM Reporting Lab: [facility] [address] [address] Performing Lab: [address] [address] HGA1C 7.0 H 4.0-6.0 Mar 06, 2024 09:52 AM [facility] LIPID PANEL (STL) Specimen Type: PLASMA Comment: No hemolysis noted. Ordering Provider: MANUEL BAIRD Report Released Date/Time: Mar 06, 2024 09:47 AM Reporting Lab: [address] [address] Performing Lab: [place] [address] [address] CHOLESTEROL 161 mg/dL 0-200 TRIGLYCERIDE 119 mg/dL 0-150 CALCULATED LDL 107 mg/dL HDL(New) 30 mg/dL L >40 Mar 06, 2024 09:52 AM [facility] PROST. SPECIFIC AG.(PB-STL) Specimen Type: SERUM Comment: The listed sex of this patient may not be a typical indication for this test. Therefore, reference ranges or interpretive criteria listed may not be valid. Clinical correlation suggested. Ordering Provider: MANUEL BAIRD Report Released Date/Time: Mar 06, 2024 09:47 AM Reporting Lab: [address] [address] Performing Lab: [place] [address] [place] [address] PROST. SPECIFIC AG.(PB-STL) 0.919 ng/mL 0-4 Mar 06, 2024 09:52 AM [facility] TSH (MA-PB) Specimen Type: SERUM Comment: The listed sex of this patient may not be a typical indication for this test. Therefore, reference ranges or interpretive criteria listed may not be valid. Clinical correlation suggested. Ordering Provider: MANUEL BAIRD Report Released Date/Time: Mar 06, 2024 09:47 AM Reporting Lab: [facility] [address] [address] Performing Lab: [facility] [address] [facility] [address] TSH 2.984 u[IU]/mL 0.47-5 Mar 06, 2024 09:52 AM [facility] COMPREHENSIVE METABOLIC PANEL Specimen Type: PLASMA Comment: No hemolysis noted. Ordering Provider: MANUEL BAIRD Report Released Date/Time: Mar 06, 2024 09:47 AM Reporting Lab: [facility] [address] [facility] [address] Performing Lab: [address] [address] CREATININE 0.87 mg/dL 0.7-1.3 UREA NITROGEN 14.7 [...] >60 Mar 06, 2024 09:52 AM [facility] CBC Specimen Type: BLOOD No comment entered. Ordering Provider: MANUEL BAIRD Report Released Date/Time: Mar 06, 2024 09:47 AM Reporting Lab: [facility] [address] [facility] [address] Performing Lab: [address] [address] WBC 4.4 10*3/uL 3.6-11.2 RBC 5.19 10*6/uL [...] place. Date/Time Current Smoking Status Comment Radhika ogins Aug 11, 2016 10:34 AM QUIT TOBACCO >7 YEARS AGO [facility] Tobacco Use History This section includes a history of the smoking, or tobacco-related health factors, that were collected on or before the date of the Encounter. The data comes from the CT facility where the Encounter took place. Date/Time Smoking Status/Tobacco Use Comment Juan borden Sep 30, 2015 10:12 AM QUIT TOBACCO >7 YEARS AGO [facility] Oct 29, 2014 10:23 AM QUIT TOBACCO >7 YEARS AGO [facility] Dec 27, 2013 01:27 PM QUIT TOBACCO >7 YEARS AGO [facility] Feb 24, 2013 02:01 PM LIFETIME NON-USER OF TOBACCO [facility] Feb 11, 2009 10:09 AM QUIT TOBACCO >7 YEARS AGO [facility] Oct 06, 2006 09:30 AM CURRENT NON-TOBACC O USER-HX OF USE [facility] Oct 06, 2006 09:30 AM TOBACCO TERMINATION STAGE [facility] Advance Directives: All historical and current [...] DIRECTIVE DISCUSSION ERICK BARDALES [facility] Radiology Reports: +/- 30 days of [...] US ABDOMEN COMPLET E W/BLOOD FLOW DOPPLER ([facility]): CHET WALKER [id number] -1950 M Ex Date: MARCH 15, 2024@08:01 Req Phys: MANUEL BAIRD Loc: [facility]MAN PACT STAR RES 4 (Req'g Im Loc: [facility]-ULTRASOUND [facility] Service: Unknown [address] [address] (Case [id number] COMPLETE) US ABDOMEN COMPLETE REDUCE SERVIC(US Detailed) CPT:18696 CPT Modifiers : 52 REDUCED SERVICES Reason for Study: thrombocytopenia, please check liver and spleen. (Case [id number] COMPLETE) US BLOOD FLOW ABD/RENAL DOPPLER ((US Detailed) CPT:14020 Clinical History: Report Status: Verified Date Reported: MARCH 15, 2024 Date Verified: MARCH 15, 2024 Trailhead Maintenance Worker E-Sig:/ES/YESICA LOWERY MD Report: US ABDOMEN COMPLETE REDUCE SERVICE, US BLOOD FLOW ABD/RENAL DOPPLER (COMPLETE) [id number], [id number] DATE: 03/15/2024 8:01 AM EXAM: ABDOMINAL ULTRASOUND [id number], [id number] HISTORY: thrombocytopenia, please check liver and spleen. [...] Interpreting Staff: YESICA LOWERY MD, STAFF RADIOLOGIST (Trailhead Maintenance Worker) Primary Interpreting Resident: Flory Guzman MD, Resident Physician /YESICA SALGUERO [facility] Encounter Notes: All associated encounter notes This section contains the clinical notes associated to the Encounter. Date/Time Encounter Note(s) Provider Source March 20, 2024 12:45 PM DENTISTRY NOTE: LOCAL TITLE: DENTAL NOTE STL STANDARD TITLE: DENTISTRY NOTE DATE OF NOTE: MARCH 20, 2024@12:45 ENTRY DATE: MARCH 20, 2024@12:54:19 AUTHOR: KADOSH,NAFTALI EXP COSIGNER: URGENCY: STATUS: COMPLETED Patient Name: CHET WALKER, : 1950, Age: 73 Visit: S: March 20, 2024@09:30 [facility]ENTAL DDS2. Primary PCE Diagnosis: Z01.20 (ENCOUNTER FOR DENTAL EXAMINATION AND CLEANING WITHOUT ABNORMAL FINDINGS). Dental Category: 15-OPC, Class IV. Treatment Status: Active. Completed Care: (D9310) DENTAL CONSULTATION. DX: Z01.20 Encounter for Dental Examination and Cleaning without Abnormal Findings (D0330) DENTAL PANORAMIC IMAGE. DX: Z01.20 Encounter for Dental Examination and Cleaning without Abnormal Findings (D0220) INTRAORAL PERIAPICAL FIRST. Tooth: 22. DX: Z01.20 Encounter for Dental Examination and Cleaning without Abnormal Findings (D0220) INTRAORAL PERIAPICAL FIRST. Tooth: 27. DX: Z01.20 Encounter for Dental Examination and Cleaning without Abnormal Findings Presentation/Chief Complaint: Patient presents for dental consultation is present for impallnt consult is not specific for the number of implants he wants and in what locations Vital Signs: Vital signs not obtained Past Medical History and Medications: No significant changes since the last dental visit Active Problems: Asthma ([facility] [id number]) Gastro-esophageal reflux disease ([facility] 513755724) Peptic Ulcer Disease (ICD-9-CM 533.90) Hypertension ([facility] 41942048) Pituitary Neoplasms (ICD-9-CM 194.3) Hyperlipidemia ([facility] 89722639) Erectile dysfunction associated with type 2 diabetes mellitus ([facility] [id number]) Osteoarthritis of knee ([facility] [id number]) Diabetes mellitus with neuropathy ([facility] 515004677) Low back pain ([facility] 282469447) Obesity ([facility] 680567230) Patellofemoral syndrome of right knee ([facility] [id number]) History of left total knee replacement ([facility] [id number]) History of arthroplasty of right knee ([facility] [id number]) Exposure to potentially hazardous substance ([facility] [id number]) Active Medications: ---- Outpatient Medication ---- INSULIN,ASPART(EQV-NOVLG)100U N/ML FLXPEN - (ACTIVE) AMMONIUM LACTATE 12% CREAM - (ACTIVE) HCTZ 12.5/LISINOPRIL 20MG TAB - (ACTIVE) MELOXICAM 7.5MG TAB - (ACTIVE) METFORMIN HCL 500MG 24HR SA TAB - (ACTIVE) OMEPRAZOLE 20MG EC CAP - (ACTIVE) DEXTROSE 24GM/31GM SQUEEZE TUBE - (ACTIVE) TRANSPARENT DRESSING 2 3/8IN X 2 3/4IN - (ACTIVE) GLUCOSE SENSOR FREESTYLE RADHIKA 3 - (ACTIVE) INSULIN,GLARG(TOUJEO MAX) 300 UNT/ML 3ML - (ACTIVE) MULTIVITAMIN CAP/TAB - (ACTIVE) NEEDLE,PEN 31G,5MM - (ACTIVE) METHOCARBAMOL 500MG TAB - (ACTIVE) PREGABALIN 200MG ORAL CAP - (ACTIVE) LANCET,SOFTCLIX - (ACTIVE) SEMAGLUTIDE 1MG/0.75ML INJ PEN 3ML - (ACTIVE) ACCU-CHEK GUIDE (GLUCOSE) TEST STRIP - (ACTIVE) ALBUTEROL 90MCG (CFC-F) 200D ORAL INHL - (ACTIVE) ATORVASTATIN CALCIUM 80MG TAB - (ACTIVE) DULOXETINE HCL 60MG EC CAP - (ACTIVE) LIDOCAINE 5% PATCH - (ACTIVE) NAPROXEN NA 220MG TAB - (ACTIVE) Active Allergies: TRAMADOL Dental Alerts: Allergies: Tramadol Diabetes HGA1C as of March 06 is 7.0 Hx of LTKA Radiographic Findings: Radiographs reviewed, findings noted below: Edentulous upper/ Flex partial with root/coronal caries of remaining teeth # 21, 22 & 27 Oral Examination: Dental Examination: Missing Teeth: 1, 2, 3, 4, 5, 6, 7, 8, 9, 10, 11, 12, 13, 14, 15, 16, 17, 18, 19, 20, 26, 28, 29, 30, 31, 32. Caries: 21, 21(r), 22, 22(r), 27(SC), 27(r). Assessment/Plan: No contraindications for planned procedure(s). Planned Procedures: Non-VA Care (D7140) EXTRACTION ERUPTED TOOTH/EXR: 21. DX: (). (D7140) EXTRACTION ERUPTED TOOTH/EXR: 22. DX: (). (D7140) EXTRACTION ERUPTED TOOTH/EXR: 27. DX: (). (D6056) PREFABRICATED ABUTMENT: 27. DX: (). (D6056) PREFABRICATED ABUTMENT: 22. DX: (). (D6010) ENDOSTEAL IMPLANT BODY PLACE: 27. DX: (). (D6010) ENDOSTEAL IMPLANT BODY PLACE: 22. DX: (). (D3429) BONE GRAFT W/PRAD SURG-ADDL: 27. DX: (). (D3428) BONE GRAFT W/PRAD SURG-FIRST: 22. DX: (). (D3428) BONE GRAFT W/PRAD SURG-FIRST: 21. DX: (). (D6190) RADIO/SURGICAL IMPLANT INDEX: . DX: (). (D0365) CBCT CAPT/INTERPT MANDIBLE: . DX: (). Phase 1 (D5865) OVERDENTURE COMPLETE CARLOS: Lower. DX: (). (Next-Appt) (D5110) DENTURES COMPLETE MAXILLARY: Upper. DX: (). (Next-Appt) Reviewed risks/benefits/alternatives associated with the proposed treatment plan. Patient agrees to treatment plan as discussed. Disposition: Next visit: 4-6 months Patient to return to dental clinic for continuing care. Patient provided instructions for obtaining fee dental care subject to CT authorization of proposed treatment plan. Next Appointment: Following placement of implans at sites # 22 & 27 schedule patient for evaluation and PAX of implants. Schedule needed appoinemnts for a F/Overdenture (D5110) DENTURES COMPLETE MAXILLARY: Upper (D5865) OVERDENTURE COMPLETE CARLOS: Lower - - - - - - - - - - - - - - - - - - - - - - - - - - - - - - /shen/ Kassidy Dennis DDS Staff Dentist Signed: 03/20/2024 12:54 KASSIDY DENNIS [facility] March 20, 2024 12:39 PM DENTISTRY NOTE: LOCAL TITLE: DENTAL NOTE STL STANDARD TITLE: DENTISTRY NOTE DATE OF NOTE: MARCH 20, 2024@12:39 ENTRY DATE: MARCH 20, 2024@12:39:36 AUTHOR: KASSIDY DENNIS EXP COSIGNER: URGENCY: STATUS: COMPLETED Dental Implant Risk Assessment Patient Name: CHET WALKER # Last [id number] Date of Assessment: March Medical/Dental History Currently smoking or using tobacco: No (0) Diabetes/HbA1c at time of implant placement: HbA1c < 7% (0) A1C:HGA1C 7.0 H % 03/06/2024 09:52 History of same site failure: No history of failure at site (0) Use of anti-resorptive agents: Oral anti-resorptive agents (3) History of H&N Radiation > 55Gy: No (0) Poor compliance with dental appointments: No (0) Clinical Exam Periodontal disease: Slight Chronic Periodontitis Treated/Inactive (2) Plaques levels at exam: Moderate plaque Pl >= 20-50% (3) Bruxism: No (0) Total Risk Score: 3 Low: Request for implant treatment is low risk (examples include dentate patients with 1 implant who are periodontally stable and edentulous patients who require only two mandibular implants to improve denture stability). The treatment plan is for implants to be placed at the following sites and for what type of prosthesis: 22 & 27 for overdenture /es/ Kassidy Dennis DDTorrey Staff Dentist Signed: 03/20/2024 12:59 KASSIDY DENNIS [facility]
--- OUTSIDE RECORDS SUMMARY | 2024-11-17 03:47 | XMS_ITS | Encounter Summary ---
Author Name [facility] [facility] [place] [facility] [place] Address [address] [place] [address] Care Team Providers Care Pan Washer Name Role Phone MANUEL BAIRD Primary Care [...] PART A Apr 08, 2017 PART A [id number] ASHLEY WALKER PATIENT Selected Encounter This section includes the information on record at [place] for the Encounter. Date/Time Encounter Type Encounter Description Reason Provider Source Mar 06, 2024 09:00 AM ACUPUNCT W/O STIMUL 15 MIN [facility] TREATMENT ICD-10-CM M54.50 Low back pain, unspecified ZANDER FINE Encounter Template Text not used by [facility] Assessments - Encounter Diagnoses This section includes the primary and secondary diagnoses documented for the Encounter. Date/Time Primary/Secondary Diagnosis Diagnosis Name Provider Source Mar 06, 2024 09:32 AM PRIMARY Low back pain, unspecified ZANDER FINE [facility] Plan of Treatment: Future Appointments (+ 6 months) and Future Tests (+/- 45 days) The Plan of Treatment section includes future care activities for the patient from all [place] [facility]. This section includes future appointments and future orders which are active, pending or scheduled. Future Appointments This section includes appointments that were scheduled to occur 6 months from the date of the Encounter, up to a maximum of 20 appointments. The data comes from all [facility]. Appointment Date/Time Appointment Type Appointme nt Facility Name March 15, 2024 09:00 AM AMBULATORY - NONE [facility] March 16, 2024 09:30 AM AMBULATORY - MEDICINE [facility] March 20, 2024 09:30 AM AMBULATORY - MEDICINE [facility] March 21, 2024 09:30 AM AMBULATORY - REHAB MEDICIN [facility] March 27, 2024 08:30 AM AMBULATORY - NONE [facility] March 28, 2024 10:00 AM AMBULATORY - REHAB MEDICIN [facility] April 04, 2024 09:30 AM AMBULATORY - REHAB MEDICIN [facility] April 07, 2024 10:15 AM AMBULATORY - MEDICINE [facility] Apr 11, 2024 09:30 AM AMBULATORY - REHAB MEDICIN [facility] Apr 18, 2024 02:00 PM AMBULATORY - NONE [facility] Apr 20, 2024 10:30 AM AMBULATORY - REHAB MEDICIN [facility] Apr 21, 2024 11:00 AM AMBULATORY - MEDICINE [facility] 2024 10:00 AM AMBULATORY - MEDICINE [facility] May 02, 2024 10:00 AM AMBULATORY - SURGERY [facility] May 04, 2024 10:30 AM AMBULATORY - REHAB MEDICIN [facility] May 12, 2024 10:30 AM AMBULATORY - SURGERY [facility] May 17, 2024 09:00 AM AMBULATORY - MEDICINE [facility] May 18, 2024 10:30 AM AMBULATORY - REHAB MEDICIN E [facility] May 31, 2024 02:00 PM AMBULATORY - SURGERY [facility] Jun 05, 2024 08:40 AM AMBULATORY - NONE [facility] Active, Pending, and Scheduled Orders [...] OCCULT BLOOD FIT X1 SCREEN STOOL FECES [facility] March 20, 2024 12:36 PM Consult Order [facility] DENTAL SPEC Cons Ice Hockey Coach's Choice [facility] April 07, 2024 12:00 AM Laboratory - Chemi stry Order OCCULT BLOOD FIT X1 SCREEN STOOL FECES [facility] Lab Results: +/- 30 days of [...] Range Comment Mar 06, 2024 10:03 AM [facility] MICRAL/CREAT PROFILE (STL) Specimen Type: URINE No comment entered. Ordering Provider: MANUEL BAIRD Report Released Date/Time: Mar 06, 2024 09:47 AM Reporting Lab: [facility] [address] [facility] [phone] Performing Lab: [facility] [address] [facility] [phone] URINE ALBUMIN (PB-STL) 114.8 mg/L uACR (STL) 59 mg/g H 0-29 CREATININE URINE/OTHERS 193.6 mg/dL H 63-166 Mar 06, 2024 09:52 AM [facility] HGA1C Specimen Type: BLOOD No comment entered. Ordering Provider: MANUEL BAIRD Report Released Date/Time: Mar 06, 2024 09:47 AM Reporting Lab: [facility] [address] [facility] [address] Performing Lab: [facility] [address] [facility] [facility] [facility] [address] HGA1C 7.0 H 4.0-6.0 Mar 06, 2024 09:52 AM [facility] LIPID PANEL (STL) Specimen Type: PLASMA Comment: No hemolysis noted. Ordering Provider: MANUEL BAIRD Report Released Date/Time: Mar 06, 2024 09:47 AM Reporting Lab: [facility] [address] [facility] [address] Performing Lab: [address] [address] CHOLESTEROL 161 mg/dL 0-200 TRIGLYCERIDE 119 mg/dL 0-150 CALCULATED LDL 107 mg/dL HDL(New) 30 mg/dL L >40 Mar 06, 2024 09:52 AM [facility] PROST. SPECIFIC AG.(PB-STL) Specimen Type: SERUM Comment: The listed sex of this patient may not be a typical indication for this test. Therefore, reference ranges or interpretive criteria listed may not be valid. Clinical correlation suggested. Ordering Provider: MANUEL BAIRD Report Released Date/Time: Mar 06, 2024 09:47 AM Reporting Lab: [address] [address] Performing Lab: [facility] [address] [place] [phone] PROST. SPECIFIC AG.(PB-STL) 0.919 ng/mL 0-4 Mar 06, 2024 09:52 AM [facility] COMPREHENSIVE METABOLIC PANEL Specimen Type: PLASMA Comment: No hemolysis noted. Ordering Provider: MANUEL BAIRD Report Released Date/Time: Mar 06, 2024 09:47 AM Reporting Lab: [facility] [address] [facility] [address] Performing Lab: [facility] [address] [place] [phone] CREATININE 0.87 mg/dL 0.7-1.3 UREA NITROGEN 14.7 [...] 92.3 >60 Mar 06, 2024 09:52 AM [facility] TSH (MA-PB) Specimen Type: SERUM Comment: The listed sex of this patient may not be a typical indication for this test. Therefore, reference ranges or interpretive criteria listed may not be valid. Clinical correlation suggested. Ordering Provider: MANUEL BAIRD Report Released Date/Time: Mar 06, 2024 09:47 AM Reporting Lab: [facility] [address] [facility] [address] Performing Lab: [facility] [address] [facility] [address] TSH 2.984 u[IU]/mL 0.47-5 Mar 06, 2024 09:52 AM [facility] CBC Specimen Type: BLOOD No comment entered. Ordering Provider: MANUEL BAIRD Report Released Date/Time: Mar 06, 2024 09:47 AM Reporting Lab: [facility] [address] [facility] [address] Performing Lab: [facility] [address] [facility] [address] WBC 4.4 10*3/uL 3.6-11.2 RBC 5.19 10*6/uL [...] 19, 2017 ADVANCE DIRECTIVE DISCUSSION ERICK BARDALES [facility] Radiology Reports: +/- 30 days [...] E W/BLOOD FLOW DOPPLER (STL): CHET WALKER [id number] -[id number] M Exm Date: MARCH 15, 2024@08:01 Req Phys: MANUEL BAIRD Loc: [facility]-MAN PACT STAR RES 4 (Req'g Img Loc: [facility]-ULTRASOUND [facility] Service: Unknown [facility], [address] [place] [address] (Case [id number] COMPLETE) US ABDOMEN COMPLETE REDUCE SERVIC(US Detailed) CPT:57689 CPT Modifiers : 52 REDUCED SERVICES Reason for Study: thrombocytopenia, please check liver and spleen. (Case [id number] COMPLETE) US BLOOD FLOW ABD/RENAL DOPPLER ((US Detailed) CPT:93727 Clinical History: Report Status: Verified Date Reported: MARCH 15, 2024 Date Verified: MARCH 15, 2024 Maintenance Person E-Sig:/ES/DILEEP LOWERY MD Report: US ABDOMEN COMPLETE REDUCE SERVICE, US BLOOD FLOW ABD/RENAL DOPPLER (COMPLETE) [id number], [id number] DATE: 03/15/2024 8:01 AM EXAM: ABDOMINAL ULTRASOUND [id number], [id number] HISTORY: thrombocytopenia, please check liver and spleen. [...] Interpreting Staff: DILEEP LOWERY MD, STAFF RADIOLOGIST (Maintenance Person) Primary Interpreting Resident: Flory Guzman MD, Resident Physician /DILEEP SALGUERO [facility] Encounter Notes: All associated encounter notes This section contains the clinical notes associated to the Encounter. Date/Time Encounter Note(s) Provider Source Mar 06, 2024 09:31 AM [facility]: LOCAL TITLE: [place] ACUPUNCTURE NOTE STANDARD TITLE: [facility] DATE OF NOTE: MAR 06, 2024@09:31 ENTRY DATE: MAR 06, 2024@09:31:34 AUTHOR: ZANDER FINE COSIGNER: URGENCY: STATUS: COMPLETED Follow up visit Jewett Acupuncture/Jewett Acupressure was the only treatment given. Patient was evaluated and agreed to receive Jewett Acupuncture (BFA). Patient was evaluated and agreed to receive Jewett Acupuncture Protocol (BFA)/Jewett Acupressure (BAA) for the following pain condition(s): [...] Rating Scale: number from 0-10: 7 Standard [id number] time for application of BFA/BAA protocol is [...] tape that holds the needle in place. -Perkins must be placed in a sharps container [...] your condition worsen. /shen/ ZANDER FINE, MSN, PUBLIC EMPLOYMENT MEDIATOR, FIELD RECORDER-C, DipACLM //[facility] NURSE PRACTITIONER Signed: 03/06/2024 09:32 ZANDER FINE [facility]
--- OUTSIDE RECORDS SUMMARY | 2024-11-17 03:47 | XMS_ITS | Encounter Summary ---
Author Name [facility] [place] [facility] [place] [facility] [place] Address [address] [place] [address] Care Team Providers Care Safety Clothing And Equipment Developer Name Role Phone MANUEL BAIRD Primary [...] PART A Apr 08, 2017 PART A [id number] ASHLEY WALKER PATIENT Selected Encounter This section includes the information on [place] at [place] for the Encounter. Date/Time Encounter Type Encounter Description Reason Provider Source Feb 28, 2024 01:30 PM SELF CARE MNGMENT TRAINING PHYSICAL THERAPY ICD-10-CM Z96.652 Presence of left artificial knee joint FLO FERRELL Encounter Template Text not used by [place] Assessments - Encounter Diagnoses This section includes the primary and secondary diagnoses documented for the Encounter. Date/Time Primary/Secondary Diagnosis Diagnosis Name Provider Source Feb 28, 2024 02:29 PM PRIMARY Presence of left artificial knee joint FLO FERRELL [facility] Plan of Treatment: Future Appointments (+ 6 months) and Future Tests (+/- 45 days) The Plan of Treatment section includes future care activities for the [place] from all [place] [facility]. This section includes future appointments and future orders which are active, pending or scheduled. Future Appointments This section includes appointments that were scheduled to occur 6 months from the date of the Encounter, up to a maximum of 20 appointments. The data comes from all [facility]. Appointment Date/Time Appointment Type Appointme nt Facility Name Feb 29, 2024 09:00 AM AMBULATORY - NONE [facility] Mar 06, 2024 09:00 AM AMBULATORY - NONE [facility] Mar 06, 2024 11:00 AM AMBULATORY - REHAB MEDICIN [facility] March 15, 2024 09:00 AM AMBULATORY - NONE [facility] March 16, 2024 09:30 AM AMBULATORY - MEDICINE [facility] March 20, 2024 09:30 AM AMBULATORY - MEDICINE [facility] March 21, 2024 09:30 AM AMBULATORY - REHAB MEDICIN [facility] March 27, 2024 08:30 AM AMBULATORY - NONE [facility] March 28, 2024 10:00 AM AMBULATORY - REHAB MEDICIN [facility] April 04, 2024 09:30 AM AMBULATORY - REHAB MEDICIN [facility] April 07, 2024 10:15 AM AMBULATORY - MEDICINE [facility] Apr 11, 2024 09:30 AM AMBULATORY - REHAB MEDICIN E [facility] Apr 18, 2024 02:00 PM AMBULATORY - NONE [facility] Apr 20, 2024 10:30 AM AMBULATORY - REHAB MEDICIN [facility] Apr 21, 2024 11:00 AM AMBULATORY - MEDICINE [facility] 2024 10:00 AM AMBULATORY - MEDICINE [facility] May 02, 2024 10:00 AM AMBULATORY - SURGERY [facility] May 04, 2024 10:30 AM AMBULATORY - REHAB MEDICIN E [facility] May 12, 2024 10:30 AM AMBULATORY - SURGERY [facility] Julián LILLY [facility] May 17, 2024 09:00 AM AMBULATORY - MEDICINE [facility] Active, Pending, and Scheduled Orders This section [...] FIT X1 SCREEN STOOL FECES [facility] March 20, 2024 12:36 PM Consult Order [facility]-STL DENTAL SPEC Cons Stencil Inspector's Choice [facility] April 07, 2024 12:00 AM Laboratory - Chemi stry Order OCCULT BLOOD FIT X1 SCREEN STOOL FECES [facility] Lab Results: +/- 30 days of [...] Range Comment Mar 06, 2024 10:03 AM [facility] MICRAL/CREAT PROFILE (STL) Specimen Type: URINE No comment entered. Ordering Provider: MANUEL BAIRD Report Released Date/Time: Mar 06, 2024 09:47 AM Reporting Lab: [facility] [address] [facility] [address] Performing Lab: [facility] [address] [facility] [address] URINE ALBUMIN (PB-STL) 114.8 mg/L uACR (STL) 59 mg/g H 0-29 CREATININE URINE/OTHERS 193.6 mg/dL H 63-166 Mar 06, 2024 09:52 AM [facility] HGA1C Specimen Type: BLOOD No comment entered. Ordering Provider: MANUEL BAIRD Report Released Date/Time: Mar 06, 2024 09:47 AM Reporting Lab: [facility] [address] [facility] [address] Performing Lab: [facility] [address] [facility] [address] HGA1C 7.0 H 4.0-6.0 Mar 06, 2024 09:52 AM [facility] LIPID PANEL (STL) Specimen Type: PLASMA Comment: No hemolysis noted. Ordering Provider: MANUEL BAIRD Report Released Date/Time: Mar 06, 2024 09:47 AM Reporting Lab: [facility] [address] [facility] [address] Performing Lab: [address] [address] CHOLESTEROL 161 mg/dL 0-200 TRIGLYCERIDE 119 mg/dL 0-150 CALCULATED LDL 107 mg/dL HDL(New) 30 mg/dL L >40 Mar 06, 2024 09:52 AM [facility] PROST. SPECIFIC AG.(PB-STL) Specimen Type: SERUM Comment: The listed sex of this patient may not be a typical indication for this test. Therefore, reference ranges or interpretive criteria listed may not be valid. Clinical correlation suggested. Ordering Provider: MANUEL BAIRD Report Released Date/Time: Mar 06, 2024 09:47 AM Reporting Lab: [facility] [address] [facility] [address] Performing Lab: [facility] [address] [place] [id number] PROST. SPECIFIC AG.(PB-STL) 0.919 ng/mL 0-4 Mar 06, 2024 09:52 AM [facility] COMPREHENSIVE METABOLIC PANEL Specimen Type: PLASMA Comment: No hemolysis noted. Ordering Provider: MANUEL BAIRD Report Released Date/Time: Mar 06, 2024 09:47 AM Reporting Lab: [facility] [address] [facility] [address] Performing Lab: [facility] [address] [place] [phone] CREATININE 0.87 mg/dL 0.7-1.3 UREA NITROGEN 14.7 [...] 92.3 >60 Mar 06, 2024 09:52 AM [facility] TSH (MA-PB) Specimen Type: SERUM Comment: The listed sex of this patient may not be a typical indication for this test. Therefore, reference ranges or interpretive criteria listed may not be valid. Clinical correlation suggested. Ordering Provider: MANUEL BAIRD Report Released Date/Time: Mar 06, 2024 09:47 AM Reporting Lab: [facility] [address] [facility] [address] Performing Lab: [facility] [address] [facility] [address] TSH 2.984 u[IU]/mL 0.47-5 Mar 06, 2024 09:52 AM [facility] CBC Specimen Type: BLOOD No comment entered. Ordering Provider: MANUEL BAIRD Report Released Date/Time: Mar 06, 2024 09:47 AM Reporting Lab: [facility] [address] [facility] [address] Performing Lab: [facility] [address] [facility] [address] WBC 4.4 10*3/uL 3.6-11.2 RBC 5.19 10*6/uL [...] and tobacco- related health factors from the [place] facility where the Encounter took place. Current Smoking Status This section includes the most current smoking, or tobacco-related health factor, from the [place] facility where the Encounter took place. Date/Time Current Smoking Status Comment Radhika goins Aug 11, 2016 10:34 AM QUIT TOBACCO >7 YEARS AGO [facility] Tobacco Use History This section includes a history of the smoking, or tobacco-related health factors, that were collected on or before the date of the Encounter. The data comes from the [place] facility where the Encounter took place. Date/Time Smoking Status/Tobacco Use Comment Juan acility Sep 30, 2015 10:12 AM QUIT TOBACCO >7 YEARS AGO [facility] Oct 29, 2014 10:23 AM QUIT TOBACCO >7 YEARS AGO [facility] Dec 27, 2013 01:27 PM QUIT TOBACCO >7 YEARS AGO [facility] Feb 24, 2013 02:01 PM LIFETIME NON-USER OF TOBACCO [facility] Feb 11, 2009 10:09 AM QUIT TOBACCO >7 YEARS AGO [facility] Oct 06, 2006 09:30 AM CURRENT NON-TOBACC O USER-HX OF USE [facility] Oct 06, 2006 09:30 AM TOBACCO TERMINATION STAGE [facility] Advance Directives: All historical and current [...] ADVANCE DIRECTIVE DISCUSSION ERICK BARDALES [facility] Radiology Reports: +/- 30 days of [...] the Encounter. The data comes from all [place] treatment facilities. Date/Time Radiology Report Provider Source March 15, 2024 08:01 AM US ABDOMEN COMPLET E W/BLOOD FLOW DOPPLER (STL): CHET WALKER [id number] -[id number] M Exm Date: MARCH 15, 2024@08:01 Req Phys: MANUEL BAIRD Loc: [facility]-MAN PACT STAR RES 4 (Req'g Img Loc: [facility]-ULTRASOUND [facility] Service: Unknown [facility] [address] [place] [address] (Case [id number] COMPLETE) US ABDOMEN COMPLETE REDUCE SERVIC(US Detailed) CPT:69224 CPT Modifiers : 52 REDUCED SERVICES Reason for Study: thrombocytopenia, please check liver and spleen. (Case [id number] COMPLETE) US BLOOD FLOW ABD/RENAL DOPPLER ((US Detailed) CPT:62521 Clinical History: Report Status: Verified Date Reported: MARCH 15, 2024 Date Verified: MARCH 15, 2024 Railroad [employer] E-Sig:/ES/YESICA LOWERY MD Report: US ABDOMEN COMPLETE REDUCE SERVICE, US BLOOD FLOW ABD/RENAL DOPPLER (COMPLETE) [id number], [id number] DATE: 03/15/2024 8:01 AM EXAM: ABDOMINAL ULTRASOUND [id number], [id number] HISTORY: thrombocytopenia, please check liver and spleen. [...] Interpreting Staff: YESICA LOWERY MD, STAFF RADIOLOGIST (Railroad [employer]) Primary Interpreting Resident: Flory Guzman MD, Resident Physician /YESICA SALGUERO [facility] Encounter Notes: All associated encounter notes This section contains the clinical notes associated to the Encounter. Date/Time Encounter Note(s) Provider Source Feb 28, 2024 12:57 PM PHYSICAL THERAPY C ONSULT: LOCAL TITLE: PT CONSULT STL STANDARD TITLE: PHYSICAL THERAPY CONSULT DATE OF NOTE: FEB 28, 2024@12:57 ENTRY DATE: FEB 28, 2024@12:57:40 AUTHOR: FLO FERRELL EXP COSIGNER: URGENCY: STATUS: COMPLETED Current PC Provider: MANUEL BAIRD Current PC Team: AUDREY KAUR A *EMELIA* Current Pat. Status: Outpatient UCID: [id number] [...] be rendered on an OUTPATIENT basis Place: Stencil Inspector's choice Urgency: Routine Clinically Ind. Date: Feb 02, 2024 DST ID: Orderable Item: PT OUTPT STL Consult: Consult Request Provisional Diagnosis: Spinal stenosis, lumbar region with neurogenic claudication(ICD-10-CM M48.062) Reason For Request: Physical Therapy Outpatient Consul Chart Review: [facility]: Chart Review: Imaging: - Primary provider:Mazin Start of Care:02/28/24 Reevaluation due:03/29/24 POC through:05/08/24 Visits to date: 1 No shows/cancellations: 0 \ Treatment time: Total 45 mins. Evaluation 15 mins. Therapeutic exercise: 15 mins. Self mgmt 15 Taping/Strapping Proc: mins SUBJECTIVE: Pt reports he just completed 2+ months of therapy (2x/wk). He was getting therapy for his back and his balance. It was helping. --Onset: chronic back issues. 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 goal(s): Pt reports he'd like to be able to go up/down steps without side stepping. --ACTIVITY LIMITATIONS OF PATIENT: OVERHEAD REACH:able DRESSING: able LIFTING: <20lbs SLEEP:able SITTING:able HYGIENE: Functional abilities: bed mobility:xw supine to sitting: sit <-> stand: OBJECTIVE: VITALS: sitting/rest BP: 153/92mmHg HR: 80bpm Modified Low Back Disability Questionnaire: 0%-20%=minimal disability [...] if can peform Side by Side: (10sec) __1_ Semi Tandem (10seconds) __1__ Tandem Stance (10seconds, 2pts if completed 1 pt if 3-9 sec)__2__ STRENGTH: 5 Times Sit to Stand (4 pts: <11.19sec; 3pts:11.2-13.7; 2pts: 13.7-16.7, 1pts: > 16.7sec, 0pts >60seconds) 5 Times Sit to stand 17seconds Score: 1pt GAIT SPEED: 4 meters: 4pts <4.82sec; 3pts 4.8-6.2sec; 2pts 6.2-8.7 1pts >8.7sec Score: 2pts (7s without device) TOTAL SCORE:7/12pts NORMS: Community Dwelling Older Adults (Leah Mcdaniel, Matthew et al 2016) Fallers : 8.2 Non Fallers: 9.5 Men: 10.4 Women: 9.7 Treatment: Initial Evaluation Self Mgmt: x15min -education on importance of daily walking -discussed why daily stretching will help with back pain -reviewed balance/fall risk. Therapeutic exercise: Pt was instructed in and demonstrated independence with current HEP x 1 including: Access Code: [email or web address] URL: [email or web address] Date: 02/28/2024 Prepared by: Dons Exercises - [...] weekly - 4 sets - 20 reps ASSESSMENT: Pt. would benefit from PT to [...] independence with proper sitting and sleeping postures detention: 1) Pt to demonstrate independence with final HEP x 1 2 ) Pt. to report pain at worst 5/10 3) Pt. to improve >MDC on the SPPB indicating improved balance and strength --PATIENT'S RESPONSE TO PHYSICAL THERAPY INTERVENTION: BARRIERS- PERSONAL FACTORS OR CO-MORBIDITIES THAT IMPACT POC: [] Cognition: [] Home environment: [] Distance patient lives from facility: [] Support of family/friends to assist: [] Transportation to facility issues: [] Patients willingness to participate: [] Work issues: [] Difficulty getting time off: [] Requires certain time slots to accommodate work schedule: [] Co-morbidities: [] Other: CO-MORBIDITIES 1. 2. 3. 4. Body Systems: elements include body structures & fxns, activity limitations, and/or participation restrictions) 1. 2. 3. 4. - CLINICAL DECISION MAKNIG REGARDING PATIENTS LEVEL OF COMPLEXITY [] STABLE AND/OR UNCOMPLICATED [] EVOLVING CLINICAL PRESENTATION WITH CHANGING CLINCIAL CHARACTERISTICS [] UNSTABLE AND UNPREDICTABLE CHARACTERISTICS THEREFORE, the level of complexity for this patient was: [] Low, [] Moderate, [] High --REHABILITATION POTENTIAL: [] POOR - Limited potential for improvement. [] GUARDED - There exists a question of the potential for improvement [x] FAIR - Presents with the potential to improve in some areas while other deficits may remain unchanged. [] GOOD - Presents with the potential to improve to a level of functional independence, though may continue to demonstrate certain minimal limitations with consistent performance of HEP. [] EXCELLENT - Presents with the potential to fully recover with no residual deficits. --CONTINUED SKILLED THERAPY NEEDED TO ADDRESS THE FOLLOWING IMPAIRMENTS/FUNCTIONAL LIMITATIONS AND EDUCATIONAL NEEDS: [x] Pain: [x] Physiological impairments of: [x] Balance: [x] ROM: [x] Strength: [] Other: [x] ADL deficits: [x] WB activities: [] Self-care: [x] Other: [x] Education needs: Individual(s) involved: [x] Patient: [] Caregiver: [x] Achieving (I) with home program: [] Gain further of understanding of self-management of condition: [x] Self-Care: [] Caregiver education: [] Other: Equipment:NA Plan: Cont. PT 1X/wk. for up to 6 -8 visits to work on LE strengthening and endurnace and reudcing fall risk. --PATIENT EDUCATION DOCUMENTATION: Person(s) who received education: [x] Patient; [] Family: [] Other: Education Topic/Teaching Needs: [x] Home program: [] Why compliance with home program is important [] Regarding automated call/letter regarding scheduled appointment; two no show policy; late arriving for appointment; follow up appointment lengths. [] TENS [] Nature of condition [] Other: Methods used Included: [x] Handout(s): [x] Home program: [x] Why compliance with home program is important [] Regarding automated call/letter regarding scheduled appointment; two no show policy; late arriving for appointment; follow up appointment lengths. [] TENS [] Other: [x] One-on one: [x] Verbal instructions [x] Visual instructions [] Tactile cues. [] Other: Teaching Outcomes: [x] Good; [] Fair; [] Poor [x] Patient acknowledged understanding of instruction [] Family/Other acknowledged understanding of instruction /shen/ FLO FERRELL PT, DPT, NCS Signed: 02/28/2024 14:29 FLO FERRELL [facility]
--- OUTSIDE RECORDS SUMMARY | 2024-11-17 03:47 | XMS_ITS | Encounter Summary ---
Author Name [facility] [place] Organization [place] Address [address] [place] [address] Care Team Providers Care Publishing Manager Name Role Phone MANUEL THOMAS Primary Care [...] PART A Apr 08, 2017 PART A [id number] [phone] ASHLEY WALKER PATIENT Selected Encounter This section includes the information on record at [place] for the Encounter. Date/Time Encounter Type Encounter Description Reason Pro vider Source Feb 28, 2024 12:50 PM Outpatient Encounter ADMIN PAT ACTIVTIES (MASNONCT) IHE Encounter Template Text not used by [place] Plan of Treatment: Future Appointments (+ 6 [...] 29, 2024 09:00 AM AMBULATORY - NONE [facility] Mar 06, 2024 09:00 AM [facility] Mar 06, 2024 11:00 AM AMBULATORY - REHAB [facility]ICIN [facility] March 15, 2024 09:00 AM AMBULATORY - NONE [facility] March 16, 2024 09:30 AM AMBULATORY - MEDICINE [facility] March 20, 2024 09:30 AM AMBULATORY - MEDICINE [facility] March 21, 2024 09:30 AM AMBULATORY - REHAB MEDICIN [facility] March 27, 2024 08:30 AM AMBULATORY - NONE [facility] March 28, 2024 10:00 AM AMBULATORY - REHAB MEDICIN [facility] April 04, 2024 09:30 AM AMBULATORY - REHAB [facility]ICIN [facility] April 07, 2024 10:15 AM AMBULATORY - MEDICINE [facility] Apr 11, 2024 09:30 [facility] Apr 18, 2024 02:00 PM AMBULATORY - NONE [facility] Apr 20, 2024 10:30 AM AMBULATORY - REHAB [facility]ICIN [facility] Apr 21, 2024 11:00 AM AMBULATORY - MEDICINE [facility] 2024 10:00 AM AMBULATORY - MEDICINE [facility] May 02, 2024 10:00 AM [facility] May 04, 2024 10:30 AM AMBULATORY - REHAB MEDICIN [facility] May 12, 2024 10:30 AM [facility] May 17, 2024 09:00 AM AMBULATORY - MEDICINE [facility] Active, Pending, and Scheduled Orders This section includes a listing of several types of active, pending, and scheduled orders, including clinic medications orders, diagnostic test orders, procedure orders and consult orders; where the start date of the order is 45 days before the date of the Encounter or 45 days after the date of theEncounter. The data comes from all [place] treatment facilities. Test Date/Time Test Type Test Details Facility Name Feb 02, 2024 12:00 AM Laboratory - Chemi stry Order OCCULT BLOOD FIT X1 SCREEN STOOL FECES [facility] March 20, 2024 12:36 PM Consult Order [facility]-STL DENTAL SPEC Cons Email Designer's Choice [facility] April 07, 2024 12:00 AM Laboratory - Chemi stry Order OCCULT BLOOD FIT X1 SCREEN STOOL FECES [facility] Lab Results: +/- 30 days [...] Range Comment Mar 06, 2024 10:03 AM [facility] MICRAL/CREAT PROFILE (STL) Specimen Type: URINE No comment entered. Ordering Provider: MANUEL THOMAS Report Released Date/Time: Mar 06, 2024 09:47 AM Reporting Lab: [facility] [address] [facility] [address] Performing Lab: [facility] [address] [place] [phone] URINE ALBUMIN (PB-STL) 114.8 mg/L uACR (STL) 59 mg/g H 0-29 CREATININE URINE/OTHERS 193.6 mg/dL H 63-166 Mar 06, 2024 09:52 AM [facility] HGA1C Specimen Type: BLOOD No comment entered. Ordering Provider: MANUEL THOMAS Report Released Date/Time: Mar 06, 2024 09:47 AM Reporting Lab: [facility] [address] [facility] [address] Performing Lab: [facility] [address] [facility] [address] HGA1C 7.0 H 4.0-6.0 Mar 06, 2024 09:52 AM [facility] LIPID PANEL (STL) Specimen Type: PLASMA Comment: No hemolysis noted. Ordering Provider: MANUEL THOMAS Report Released Date/Time: Mar 06, 2024 09:47 AM Reporting Lab: [facility] [address] [facility] [address] Performing Lab: [facility] [address] [place] [address] CHOLESTEROL 161 mg/dL 0-200 TRIGLYCERIDE 119 mg/dL 0-150 CALCULATED LDL 107 mg/dL HDL(New) 30 mg/dL L >40 Mar 06, 2024 09:52 AM [facility] PROST. SPECIFIC AG.(PB-STL) Specimen Type: SERUM Comment: The listed sex of this patient may not be a typical indication for this test. Therefore, reference ranges or interpretive criteria listed may not be valid. Clinical correlation suggested. Ordering Provider: MANUEL THOMAS Report Released Date/Time: Mar 06, 2024 09:47 AM Reporting Lab: [facility] [address] [facility] [address] Performing Lab: [address] [address] PROST. SPECIFIC AG.(PB-STL) 0.919 ng/mL 0-4 Mar 06, 2024 09:52 AM [facility] COMPREHENSIVE METABOLIC PANEL Specimen Type: PLASMA Comment: No hemolysis noted. Ordering Provider: MANUEL THOMAS Report Released Date/Time: Mar 06, 2024 09:47 AM Reporting Lab: [facility] [address] [facility] [address] Performing Lab: [facility] [address] [facility] [address] CREATININE 0.87 mg/dL 0.7-1.3 UREA NITROGEN 14.7 [...] 92.3 >60 Mar 06, 2024 09:52 AM [facility] TSH (MA-PB) Specimen Type: SERUM Comment: The listed sex of this patient may not be a typical indication for this test. Therefore, reference ranges or interpretive criteria listed may not be valid. Clinical correlation suggested. Ordering Provider: MANUEL THOMAS Report Released Date/Time: Mar 06, 2024 09:47 AM Reporting Lab: [facility] [address] [place] [phone] Performing Lab: [address] [address] TSH 2.984 u[IU]/mL 0.47-5 Mar 06, 2024 09:52 AM [facility] CBC Specimen Type: BLOOD No comment entered. Ordering Provider: MANUEL THOMAS Report Released Date/Time: Mar 06, 2024 09:47 AM Reporting Lab: [facility] [address] [place] [phone] Performing Lab: [address] [address] WBC 4.4 10*3/uL 3.6-11.2 RBC 5.19 10*6/uL [...] O USER-HX OF USE [facility] Oct 06, 2006 09:30 AM TOBACCO [...] 19, 2017 ADVANCE DIRECTIVE DISCUSSION ERICK BARDALES [facility] Radiology Reports: +/- [...] E W/BLOOD FLOW DOPPLER (STL): CHET WALKER [id number] -1950 M Exm Date: MARCH 15, 2024@08:01 Req Phys: MANUEL THOMAS Loc: [facility]-MAN PACT STAR RES 4 (Req'g Img Loc: YASH-ULTRASOUND Service: Unknown [facility], [facility] [address] [place] [address] (Case [id number] COMPLETE) US ABDOMEN COMPLETE REDUCE SERVIC(US Detailed) CPT:17297 CPT Modifiers : 52 REDUCED SERVICES Reason for Study: thrombocytopenia, please check liver and spleen. (Case [id number] COMPLETE) US BLOOD FLOW ABD/RENAL DOPPLER ((US Detailed) CPT:00997 Clinical History: Report Status: Verified Date Reported: MARCH 15, 2024 Date Verified: MARCH 15, 2024 Gas Station Attendant E-Sig:/ES/YESICA LOWERY MD Report: US ABDOMEN COMPLETE REDUCE SERVICE, US BLOOD FLOW ABD/RENAL DOPPLER (COMPLETE) [id number], [id number] DATE: 03/15/2024 8:01 AM EXAM: ABDOMINAL ULTRASOUND [id number], [id number] HISTORY: thrombocytopenia, please check liver and spleen. [...] Interpreting Staff: YESICA LOWERY MD, STAFF RADIOLOGIST (Gas Station Attendant) Primary Interpreting Resident: Flory Guzman MD, Resident Physician /YESICA SALGUERO [facility] Encounter Notes: All associated encounter notes This section contains the clinical notes associated to the Encounter. Date/Time Encounter Note(s) Provider Source Feb 28, 2024 12:50 PM ADMINISTRATIVE NOT E: LOCAL TITLE: CONTACT NOTE STL STANDARD TITLE: ADMINISTRATIVE NOTE DATE OF NOTE: FEB 28, 2024@12:50 ENTRY DATE: FEB 28, 2024@12:50:34 AUTHOR: HECTOR PINO COSIGNER: URGENCY: STATUS: COMPLETED CONTACT NOTE ST Has ADDENDA Veterans name and last 4 were used to verify identity Verified Veterans telephone #/Updated telephone number in the system REASON FOR CALL: Other: Reason for call: IS REQUESTING A CALL BACK FROM PROVIDER REGARDING RESULTS FROM LUNG TEST BEST NUMBER TO REACH : ALERTING PROVIDER /shen/ HECTOR PINO ADVANCED SPLICING SUPERVISOR Signed: 02/28/2024 12:52 Receipt Acknowledged By: 02/29/2024 13:55 /camryn HALL REGISTERED NURSE 02/29/2024 16:37 /shen/ manuel thomas M.D. 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 There is impairment of diffusing capacity but not oxygenation. In comparison to prior on 04/03/2021, there has been significant interval reduction in FVC and FEV1 /camryn HALL REGISTERED NURSE Signed: 02/29/2024 13:53 HECTOR PINO [facility]
--- OUTSIDE RECORDS SUMMARY | 2024-11-17 03:47 | XMS_ITS ---
Author Name [facility] of [place] Organization [place] Address [address] [place] [address] Care Team Providers Care Bicycle Inspector Name Role Phone MANUEL BAIRD Primary Care [...] PART A Apr 08, 2017 PART A [id number] ASHLEY FINK PATIENT Selected Encounter This section includes the information on record at [place] for the Encounter. Date/Time Encounter Type Encounter Description Reason Pro vider Source April 04, 2024 11:17 AM Outpatient Encounter ADMIN PAT ACTIVTIES (MASNONCT) IHE Encounter Template Text not used by [place] Plan of Treatment: Future Appointments (+ 6 [...] from all [facility]. Appointment Date/Time Appointment Type Appointme nt Facility Name April 07, 2024 10:15 AM AMBULATORY - MEDICINE [facility] Apr 11, 2024 09:30 AM AMBULATORY - REHAB MEDICIN E [facility] Apr 18, 2024 02:00 PM AMBULATORY - NONE [facility] Apr 20, 2024 10:30 AM AMBULATORY - REHAB MEDICIN E [facility] Apr 21, 2024 11:00 AM AMBULATORY - MEDICINE [facility] 2024 10:00 AM AMBULATORY - MEDICINE [facility] May 02, 2024 10:00 AM AMBULATORY - SURGERY . [facility] May 04, 2024 10:30 AM AMBULATORY - REHAB MEDICIN E [facility] May 12, 2024 10:30 AM AMBULATORY - SURGERY [facility] May 17, 2024 09:00 AM AMBULATORY - MEDICINE [facility] May 18, 2024 10:30 AM AMBULATORY - REHAB MEDICIN E [facility] May 31, 2024 02:00 PM AMBULATORY - SURGERY [facility] Jun 05, 2024 08:40 AM AMBULATORY - NONE [facility] Jun 07, 2024 12:30 PM AMBULATORY - MEDICINE [facility] Jun 07, 2024 01:30 PM AMBULATORY - NONE [facility] Jun 08, 2024 10:00 AM AMBULATORY - MEDICINE [facility] Jun 09, 2024 01:00 PM AMBULATORY - SURGERY [facility] Jun 19, 2024 07:00 AM AMBULATORY - MEDICINE [facility] Jun 19, 2024 08:00 AM AMBULATORY - NONE [facility] Jun 29, 2024 10:15 AM AMBULATORY - [...] Consult Order COMMUNITY CARE-STL DENTAL SPEC Cons Driller And Reamer's Choice [facility] April 07, 2024 12:00 AM Laboratory - Chemi stry Order OCCULT BLOOD FIT X1 SCREEN STOOL FECES SP [facility] Lab Results: +/- 30 days [...] Range Comment April 07, 2024 11:40 AM [facility] HIV COMBO FOURTH GENERATION (L) Specimen Type: SERUM No comment entered. Ordering Provider: JAYNE OQUENDO Report Released Date/Time: April 07, 2024 10:44 AM Reporting Lab: [facility] [address] [place] [phone] Performing Lab: [facility] [address] [place] [phone] HIV COMBO FOURTH GENERATION (L) Nonreactive Nonreactive April 07, 2024 11:40 AM [facility] PT/INR NEW ([facility]) Specimen Type: PLASMA No comment entered. Ordering Provider: JAYNE OQUENDO Report Released Date/Time: April 07, 2024 10:44 AM Reporting Lab: [facility] [address] [place] [phone] Performing Lab: [address] [address] PROTIME 13.0 s H 9.4-12.5 INR VALUE 1.2 {INR} April 07, 2024 11:40 AM [facility] HEP C Ab HCV Ab (L) Specimen Type: SERUM No comment entered. Ordering Provider: JAYNE OQUENDO Report Released Date/Time: April 07, 2024 10:44 AM Reporting Lab: [address] [address] Performing Lab: [address] [address] HEP C Ab HCV Ab (L) Nonreactive Nonreactive April 07, 2024 11:40 AM [facility] LIPID PANEL (L) Specimen Type: PLASMA No comment entered. Ordering Provider: JAYNE OQUENDO Report Released Date/Time: April 07, 2024 11:14 AM Reporting Lab: [address] [address] Performing Lab: [address] [address] CHOLESTEROL 180 mg/dL 0-200 TRIGLYCERIDE 145 mg/dL 0-150 CALCULATED LDL 117 mg/dL HDL(New) 34 mg/dL L >40 April 07, 2024 11:40 AM [facility] CBC Specimen Type: BLOOD Comment: No clots Ordering Provider: JAYNE OQUENDO Report Released Date/Time: April 07, 2024 10:44 AM Reporting Lab: [address] [address] Performing Lab: [address] [address] WBC 4.4 10*3/uL 3.6-11.2 RBC 5.01 10*6/uL [...] SCRNPERF YES April 07, 2024 10:01 AM [facility] GLUCOSE,BLOOD-poct (STL) Specimen Type: BLOOD Comment: Test Performed by: [id number] Meter #: [id number] Ordering Provider: MANUEL BAIRD Report Released Date/Time: April 07, 2024 02:51 PM Reporting Lab: [address] [address] Performing Lab: [address] [address] GLUCOSE,BLOOD- poct (STL) 206 mg/dL H 72-99 Mar 06, 2024 10:03 AM [facility] MICRAL/CREAT PROFILE (STL) Specimen Type: URINE No comment entered. Ordering Provider: MANUEL BAIRD Report Released Date/Time: Mar 06, 2024 09:47 AM Reporting Lab: [facility] [address] [place] [phone] Performing Lab: [facility] [address] [place] [phone] URINE ALBUMIN (PB-STL) 114.8 mg/L uACR (STL) 59 mg/g H 0-29 CREATININE URINE/OTHERS 193.6 mg/dL H 63-166 Mar 06, 2024 09:52 AM [facility] HGA1C Specimen Type: BLOOD No comment entered. Ordering Provider: MANUEL BAIRD Report Released Date/Time: Mar 06, 2024 09:47 AM Reporting Lab: [facility] [address] [place] [phone] Performing Lab: [facility] [address] [place] [phone] HGA1C 7.0 H 4.0-6.0 Mar 06, 2024 09:52 AM [facility] LIPID PANEL (STL) Specimen Type: PLASMA Comment: No hemolysis noted. Ordering Provider: MANUEL BAIRD Report Released Date/Time: Mar 06, 2024 09:47 AM Reporting Lab: [facility] [address] [facility] [address] Performing Lab: [facility] [address] [place] [phone] CHOLESTEROL 161 mg/dL 0-200 TRIGLYCERIDE 119 mg/dL 0-150 CALCULATED LDL 107 mg/dL HDL(New) 30 mg/dL L >40 Mar 06, 2024 09:52 AM [facility] PROST. SPECIFIC AG.(PB-STL) Specimen Type: SERUM Comment: The listed sex of this patient may not be a typical indication for this test. Therefore, reference ranges or interpretive criteria listed may not be valid. Clinical correlation suggested. Ordering Provider: MANUEL BAIRD Report Released Date/Time: Mar 06, 2024 09:47 AM Reporting Lab: [facility] [address] [facility] [address] Performing Lab: [facility] [address] [facility] [address] PROST. SPECIFIC AG.(PB-STL) 0.919 ng/mL 0-4 Mar 06, 2024 09:52 AM [facility] COMPREHENSIVE METABOLIC PANEL Specimen Type: PLASMA Comment: No hemolysis noted. Ordering Provider: MANUEL BAIRD Report Released Date/Time: Mar 06, 2024 09:47 AM Reporting Lab: [facility] [address] [facility] [address] Performing Lab: [facility] [address] [facility] [address] CREATININE 0.87 mg/dL 0.7-1.3 UREA NITROGEN 14.7 [...] 92.3 >60 Mar 06, 2024 09:52 AM [facility] TSH (MA-PB) Specimen Type: SERUM Comment: The listed sex of this patient may not be a typical indication for this test. Therefore, reference ranges or interpretive criteria listed may not be valid. Clinical correlation suggested. Ordering Provider: MANUEL BAIRD Report Released Date/Time: Mar 06, 2024 09:47 AM Reporting Lab: [facility] [address] [place] [phone] Performing Lab: [address] [address] TSH 2.984 u[IU]/mL 0.47-5 Mar 06, 2024 09:52 AM [facility] CBC Specimen Type: BLOOD No comment entered. Ordering Provider: MANUEL BAIRD Report Released Date/Time: Mar 06, 2024 09:47 AM Reporting Lab: [facility] [address] [place] [phone] Performing Lab: [address] [address] WBC 4.4 10*3/uL 3.6-11.2 RBC 5.19 10*6/uL [...] >7 YEARS AGO [facility] Oct 06, 2006 09:30 AM CURRENT [...] DISCUSSION ERICK BARDALES [facility] Radiology Reports: +/- 30 days of [...] E W/BLOOD FLOW DOPPLER (STL): ABIEL FINK [id number] -1950 M Exm Date: MARCH 15, 2024@08:01 Req Phys: MANUEL BAIRD Loc: YASH-MAN PACT STAR RES 4 (Req'g Img Loc: YASH-ULTRASOUND Service: Unknown [facility] [address] [place] [address] (Case [id number] COMPLETE) US ABDOMEN COMPLETE REDUCE SERVIC(US Detailed) CPT:65144 CPT Modifiers : 52 REDUCED SERVICES Reason for Study: thrombocytopenia, please check liver and spleen. (Case [id number] COMPLETE) US BLOOD FLOW ABD/RENAL DOPPLER ((US Detailed) CPT:34535 Clinical History: Report Status: Verified Date Reported: MARCH 15, 2024 Date Verified: MARCH 15, 2024 Fuel Cell Assembler E-Sig:/ES/YESICA LOWERY MD Report: US ABDOMEN COMPLETE REDUCE SERVICE, US BLOOD FLOW ABD/RENAL DOPPLER (COMPLETE) [id number], [id number] DATE: 03/15/2024 8:01 AM EXAM: ABDOMINAL ULTRASOUND [id number], [id number] HISTORY: thrombocytopenia, please check liver and spleen. [...] Interpreting Staff: YESICA LOWERY MD, STAFF RADIOLOGIST (Fuel Cell Assembler) Primary Interpreting Resident: Flory Guzman MD, Resident Physician /MONICA SALGUEROAZALA [facility] Encounter Notes: All associated encounter notes This section contains the clinical notes associated to the Encounter. Date/Time Encounter Note(s) Provider Source April 04, 2024 11:17 AM PHYSICIAN LETTERS: LOCAL TITLE: NO SHOW LETTER STL STANDARD TITLE: PHYSICIAN LETTERS DATE OF NOTE: APRIL 04, 2024@11:17 ENTRY DATE: APRIL 04, 2024@11:18:04 AUTHOR: ARNOLD LOMAS EXP COSIGNER: URGENCY: STATUS: COMPLETED [facility] [address] [place] [address] APRIL 04, 2024 ABIEL FINK [address] [place], [place] [address] Dear Abiel Fink, Thank you for choosing the [facility] as your primary choice for health care. As a partner in your health care, we are attempting to contact you because our records indicate that you did not make it to your scheduled appointment, and we would like to re-schedule. Please call us at [phone], extension [phone] to speak to us regarding making an appointment in the [facility]PT SENIOR COGNOS DEVELOPER 2 clinic. Your good health is important [...] inquire about scheduling. Sincerely, ARNOLD LOMAS ADvanced promotions assistant sales marketing ABIEL FINK,ARNOLD GARNER [facility]
--- OUTSIDE RECORDS SUMMARY | 2024-11-17 03:47 | XMS_ITS | Encounter Summary ---
Author Name [facility] [place] [facility] [place] Address [address] [place] [address] Care Team Providers Care Unix Administrator Name Role Phone MANUEL BAIRD Primary Care [...] PART A Apr 08, 2017 PART A [id number] [phone] ASHLEY WALKER PATIENT Selected Encounter This section includes the information on record at [place] for the Encounter. Date/Time Encounter Type Encounter Description Reason Provider Source March 28, 2024 10:00 AM THERAPEUTIC EXERCISES PHYSICAL THERAPY ICD-10-CM M25.569 Pain in unspecified knee ABEBE FERRELL Encounter Template Text not used by [place] Assessments - Encounter Diagnoses This section includes the primary and secondary diagnoses documented for the Encounter. Date/Time Primary/Secondary Diagnosis Diagnosis Name Provider Source March 28, 2024 04:37 PM PRIMARY Pain in unspecified knee ABEBE FERRELL [facility] Plan of Treatment: Future Appointments (+ 6 months) and Future Tests (+/- 45 days) The Plan of Treatment section includes future care activities for the patient from all [facility]. This section includes future appointments and future orders which are active, pending or scheduled. Future Appointments This section includes appointments that were scheduled to occur 6 months from the date of the Encounter, up to a maximum of 20 appointments. The data comes from all [facility]. Appointment Date/Time Appointment Type Appointme nt Facility Name April 04, 2024 09:30 AM AMBULATORY - REHAB MEDICIN E [facility] April 07, 2024 10:15 AM AMBULATORY - MEDICINE [facility] Apr 11, 2024 09:30 AM AMBULATORY - REHAB MEDICIN E [facility] Apr 18, 2024 02:00 PM AMBULATORY - NONE [facility] Apr 20, 2024 10:30 AM AMBULATORY - REHAB MEDICIN E [facility] Apr 21, 2024 11:00 AM AMBULATORY - MEDICINE [facility] 2024 10:00 AM AMBULATORY - MEDICINE [facility] May 02, 2024 10:00 AM AMBULATORY - SURGERY [facility] May 04, 2024 10:30 AM AMBULATORY - REHAB MEDICIN E [facility] May 12, 2024 10:30 AM AMBULATORY - SURGERY [facility] May 17, 2024 09:00 AM AMBULATORY - MEDICINE [facility] May 18, 2024 10:30 AM AMBULATORY - REHAB MEDICIN E [facility] May 31, 2024 02:00 PM AMBULATORY - SURGERY [facility] Jun 05, 2024 08:40 AM AMBULATORY - NONE [facility] Jun 07, 2024 12:30 PM AMBULATORY - MEDICINE [facility] Jun 07, 2024 01:30 PM AMBULATORY - NONE [facility] Jun 08, 2024 10:00 AM AMBULATORY - MEDICINE [facility] Jun 09, 2024 01:00 PM AMBULATORY - SURGERY [facility] Jun 19, 2024 07:00 AM AMBULATORY - MEDICINE [facility] Jun 19, 2024 08:00 AM AMBULATORY - NONE [facility] Active, Pending, and Scheduled Orders [...] Consult Order COMMUNITY CARE-STL DENTAL SPEC Cons Digitizer Operator's Choice [facility] April 07, 2024 12:00 AM Laboratory - Chemi stry Order OCCULT BLOOD FIT X1 SCREEN STOOL FECES SP [facility] Lab Results: +/- 30 days of [...] Range Comment April 07, 2024 11:40 AM [facility] HIV COMBO FOURTH GENERATION (STL) Specimen Type: SERUM No comment entered. Ordering Provider: JAYNE OQUENDO Report Released Date/Time: April 07, 2024 10:44 AM Reporting Lab: [facility] [address] [facility] [facility] [address] Performing Lab: [facility] [address] [facility] [address] HIV COMBO FOURTH GENERATION (STL) Nonreactive Nonreactive April 07, 2024 11:40 AM [facility] HEP C Ab HCV Ab (L) Specimen Type: SERUM No comment entered. Ordering Provider: JAYNE OQUENDO Report Released Date/Time: April 07, 2024 10:44 AM Reporting Lab: [facility] [address] [facility] [address] Performing Lab: [facility] [address] [facility] [address] HEP C Ab HCV Ab (L) Nonreactive Nonreactive April 07, 2024 11:40 AM [facility] PT/INR NEW (STL-MA) Specimen Type: PLASMA No comment entered. Ordering Provider: JAYNE OQUENDO Report Released Date/Time: April 07, 2024 10:44 AM Reporting Lab: [address] [address] Performing Lab: [address] [address] PROTIME 13.0 s H 9.4-12.5 INR VALUE 1.2 {INR} April 07, 2024 11:40 AM [facility] LIPID PANEL ([facility]) Specimen Type: PLASMA No comment entered. Ordering Provider: JAYNE OQUENDO Report Released Date/Time: April 07, 2024 11:14 AM Reporting Lab: [address] [address] Performing Lab: [address] [address] CHOLESTEROL 180 mg/dL 0-200 TRIGLYCERIDE 145 mg/dL 0-150 CALCULATED LDL 117 mg/dL HDL(New) 34 mg/dL L >40 April 07, 2024 11:40 AM [facility] CBC Specimen Type: BLOOD Comment: No clots Ordering Provider: JAYNE OQUENDO Report Released Date/Time: April 07, 2024 10:44 AM Reporting Lab: [address] [address] Performing Lab: [address] [address] WBC 4.4 10*3/uL 3.6-11.2 RBC 5.01 10*6/uL [...] SCRNPERF YES April 07, 2024 10:01 AM [facility] GLUCOSE,BLOOD-poct (STL) Specimen Type: BLOOD Comment: Test Performed by: [id number] Meter #: [id number] Ordering Provider: MANUEL BAIRD Report Released Date/Time: April 07, 2024 02:51 PM Reporting Lab: [address] [address] Performing Lab: [address] [address] GLUCOSE,BLOOD- poct (STL) 206 mg/dL H 72-99 Mar 06, 2024 10:03 AM [facility] MICRAL/CREAT PROFILE (STL) Specimen Type: URINE No comment entered. Ordering Provider: MANUEL BAIRD Report Released Date/Time: Mar 06, 2024 09:47 AM Reporting Lab: [facility] [address] [facility] [address] Performing Lab: [facility] [address] [facility] [address] URINE ALBUMIN (PB-STL) 114.8 mg/L uACR (STL) 59 mg/g H 0-29 CREATININE URINE/OTHERS 193.6 mg/dL H 63-166 Mar 06, 2024 09:52 AM [facility] HGA1C Specimen Type: BLOOD No comment entered. Ordering Provider: MANUEL BAIRD Report Released Date/Time: Mar 06, 2024 09:47 AM Reporting Lab: [facility] [address] [facility] [address] Performing Lab: [facility] [address] [facility] [address] HGA1C 7.0 H 4.0-6.0 Mar 06, 2024 09:52 AM [facility] LIPID PANEL (STL) Specimen Type: PLASMA Comment: No hemolysis noted. Ordering Provider: MANUEL BAIRD Report Released Date/Time: Mar 06, 2024 09:47 AM Reporting Lab: [facility] [address] [facility] [address] Performing Lab: [facility] [address] [facility] [facility] [address] CHOLESTEROL 161 mg/dL 0-200 TRIGLYCERIDE 119 mg/dL 0-150 CALCULATED LDL 107 mg/dL HDL(New) 30 mg/dL L >40 Mar 06, 2024 09:52 AM [facility] PROST. SPECIFIC AG.(PB-STL) Specimen Type: SERUM Comment: The listed sex of this patient may not be a typical indication for this test. Therefore, reference ranges or interpretive criteria listed may not be valid. Clinical correlation suggested. Ordering Provider: MANUEL BAIRD Report Released Date/Time: Mar 06, 2024 09:47 AM Reporting Lab: [facility] [address] [facility] [address] Performing Lab: [facility] [address] [facility] [facility] [address] PROST. SPECIFIC AG.(PB-STL) 0.919 ng/mL 0-4 Mar 06, 2024 09:52 AM [facility] TSH (MA-PB) Specimen Type: SERUM Comment: The listed sex of this patient may not be a typical indication for this test. Therefore, reference ranges or interpretive criteria listed may not be valid. Clinical correlation suggested. Ordering Provider: MANUEL BAIRD Report Released Date/Time: Mar 06, 2024 09:47 AM Reporting Lab: [facility] [address] [facility] [address] Performing Lab: [facility] [address] [place] [id number] TSH 2.984 u[IU]/mL 0.47-5 Mar 06, 2024 09:52 AM [facility] COMPREHENSIVE METABOLIC PANEL Specimen Type: PLASMA Comment: No hemolysis noted. Ordering Provider: MANUEL BAIRD Report Released Date/Time: Mar 06, 2024 09:47 AM Reporting Lab: [address] [address] Performing Lab: [address] [address] CREATININE 0.87 mg/dL 0.7-1.3 UREA NITROGEN 14.7 [...] 92.3 >60 Mar 06, 2024 09:52 AM [facility] CBC Specimen Type: BLOOD No comment entered. Ordering Provider: MANUEL BAIRD Report Released Date/Time: Mar 06, 2024 09:47 AM Reporting Lab: [facility] [address] [facility] [address] Performing Lab: [address] [address] WBC 4.4 10*3/uL 3.6-11.2 RBC 5.19 10*6/uL [...] QUIT TOBACCO >7 YEARS AGO [facility] Tobacco Use History This section includes a history of the smoking, or tobacco-related health factors, that were collected on or before the date of the Encounter. The data comes from the [place] facility where the Encounter took place. Date/Time Smoking Status/Tobacco Use Comment Juan acility Sep 30, 2015 10:12 AM QUIT TOBACCO >7 YEARS AGO [facility] Oct 29, 2014 10:23 AM QUIT TOBACCO >7 YEARS AGO [facility] Dec 27, 2013 01:27 PM QUIT TOBACCO >7 YEARS AGO [facility] Feb 24, 2013 02:01 PM LIFETIME NON-USER OF TOBACCO [facility] Feb 11, 2009 10:09 AM QUIT TOBACCO >7 YEARS AGO [facility] Oct 06, 2006 09:30 AM CURRENT NON-TOBACC O USER-HX OF USE [facility] Oct 06, 2006 09:30 AM TOBACCO TERMINATION STAGE [facility] Advance Directives: All historical and [...] 19, 2017 ADVANCE DIRECTIVE DISCUSSION ERICK BARDALES [facility] Radiology Reports: +/- 30 days [...] E W/BLOOD FLOW DOPPLER (STL): CHET WALKER [id number] -[id number] M Exm Date: MARCH 15, 2024@08:01 Req Phys: MANUEL BAIRD Loc: [facility]-MAN PACT STAR RES 4 (Req'g Img Loc: [facility]-ULTRASOUND [facility] Service: Unknown [facility] [address] [place] [address] (Case [id number] COMPLETE) US ABDOMEN COMPLETE REDUCE SERVIC(US Detailed) CPT:18625 CPT Modifiers : 52 REDUCED SERVICES Reason for Study: thrombocytopenia, please check liver and spleen. (Case [id number] COMPLETE) US BLOOD FLOW ABD/RENAL DOPPLER ((US Detailed) CPT:02546 Clinical History: Report Status: Verified Date Reported: MARCH 15, 2024 Date Verified: MARCH 15, 2024 Teaching Assistant E-Sig:/ES/YESICA LOWERY MD Report: US ABDOMEN COMPLETE REDUCE SERVICE, US BLOOD FLOW ABD/RENAL DOPPLER (COMPLETE) [id number], [id number] DATE: 03/15/2024 8:01 AM EXAM: ABDOMINAL ULTRASOUND [id number], [id number] HISTORY: thrombocytopenia, please check liver and spleen. [...] Interpreting Staff: YESICA LOWERY MD, STAFF RADIOLOGIST (Teaching Assistant) Primary Interpreting Resident: Flory Guzman MD, Resident Physician /YESICA SALGUERO [facility] Encounter Notes: All associated encounter notes This section contains the clinical notes associated to the Encounter. Date/Time Encounter Note(s) Provider Source March 28, 2024 09:57 AM PHYSICAL MEDICINE REHAB NOTE: LOCAL TITLE: PT PROGRESS STL STANDARD TITLE: PHYSICAL MEDICINE REHAB NOTE DATE OF NOTE: MARCH 28, 2024@09:57 ENTRY DATE: MARCH 28, 2024@09:57:40 AUTHOR: ABEBE FERRELL EXP COSIGNER: URGENCY: STATUS: COMPLETED Physical Therapy Daily Note Primary Therapist: Aebbe Ferrell DPT Seen By: Chelsie Billings PTA [...] be rendered on an OUTPATIENT basis Place: Digitizer Operator's choice Urgency: Routine Clinically Ind. Date: Feb [...] 15 Gait: 10 mins Subjective: Arrives using sPC< doing well, no new falls. INIITIAL SUBJECTIVE: Pt reports he just completed [...] supine to sitting: sit <-> stand: OBJECTIVE: Assistive Device:SPC, F22 Cognition: Pt. is alert and oriented. Pt. is appropriate in conversation and answers questions directly. Posture: Lumbar Spine: [x] Decreased [] Increased Other: Pelvis: [] Anterior [x]Posterior [] Neutral [] Rotated PSIS: MMT: Illiopsoas: 5/5 Gluts: 4-/5 EVAL: Short Performance Physical Battery: 7/12pts Fallers : 8.2 Non Fallers: 9.5 Men: 10.4 Women: 9.7 Treatment: Therapeutic exercise: 35 mins. -10min warm up on nu step L 3 -promax 3x15 sets 60lbs -foam balance with medicine ball twists x2min -standing step up and step down on bosu 2x10 -stairs Pt was instructed in and demonstrated independence with current HEP x 1 including: Access Code: [email or web address] URL: [email or web address] Date: 02/28/2024 Prepared by: Dons Exercises - [...] nerve glide, 10 reps, daily. Assessment: Patient is motivated but still reports weakness in his legs. He feels he is making improvements in endurance. He really liked using the promax and would cont to benefit from LE strengthening. Goals: Short term: 3-4 weeks 1) Pt. will demonstrate independence with current HEP x 1 MET 2) Pt. will report pain at worst 6/10MET 3) Pt. to demonstrate independence with proper sitting and sleeping postures MET accounts payable specialist: 1) Pt to demonstrate independence with final HEP x 1 CONT 2 ) Pt. to report pain at worst 5/10 CONT 3) Pt. to improve >MDC on the SPPB indicating improved balance and strength CONT [place]/family demonstrated good understanding of education and that learning occured. Equipment: F-22 Plan: Cont. PT 1X/wk. for up to 6 -8 visits to work on LE strengthening and endurnace and reudcing fall risk. /shen/ ABEBE FERRELL PT, DPT, NCS Signed: 03/28/2024 16:37 ABEBE FERRELL [facility]
--- OUTSIDE RECORDS SUMMARY | 2024-11-17 03:48 | XMS_ITS ---
Author Name [place] Address [address] [place] [address] Care Team Providers Care Irrigation Equipment Remover Name Role Phone MANUEL BAIRD Primary Care [...] PART A Apr 08, 2017 PART A [id number] ASHLEY WALKER PATIENT Selected Encounter This section includes the information on record at [place] for the Encounter. Date/Time Encounter Type Encounter Description Reason Provider Source Feb 07, 2024 10:00 AM ACUPUNCT W/O STIMUL 15 MIN [facility] TREATMENT ICD-10-CM M54.50 Low back pain, unspecified ZANDER FINE Encounter Template Text not used by [place] Assessments - Encounter Diagnoses This section includes the primary and secondary diagnoses documented for the Encounter. Date/Time Primary/Secondary Diagnosis Diagnosis Name Provider Source Feb 07, 2024 09:53 AM PRIMARY Low back pain, unspecified ZANDER FINE [facility] Plan of Treatment: Future Appointments (+ 6 months) and Future Tests (+/- 45 days) The Plan of Treatment section includes future care activities for the patient from all [place] [facility] This section includes future appointments and future orders which are active, pending or scheduled. Future Appointments This section includes appointments that were scheduled to occur 6 months from the date of the Encounter, up to a maximum of 20 appointments. The data comes from all [facility]. Appointment Date/Time Appointment Type Appointme nt Facility Name Feb 10, 2024 11:00 AM AMBULATORY - MEDICINE [facility] Feb 11, 2024 11:00 AM AMBULATORY - MEDICINE [facility] Feb 17, 2024 11:30 AM AMBULATORY - MEDICINE [facility] Feb 21, 2024 10:00 AM AMBULATORY - NONE [facility] Feb 28, 2024 01:30 PM AMBULATORY - REHAB MEDICIN [facility] Feb 29, 2024 09:00 AM AMBULATORY - NONE [facility] Mar 06, 2024 09:00 AM [facility] Mar 06, 2024 11:00 AM AMBULATORY - REHAB MEDICIN [facility] March 15, 2024 09:00 AM AMBULATORY - NONE [facility] March 16, 2024 09:30 AM AMBULATORY - MEDICINE [facility] March 20, 2024 09:30 AM AMBULATORY - MEDICINE [facility] March 21, 2024 09:30 AM AMBULATORY - REHAB MEDICIN [facility] March 27, 2024 08:30 AM AMBULATORY - NONE [facility] March 28, 2024 10:00 AM AMBULATORY - REHAB MEDICIN [facility] April 04, 2024 09:30 AM AMBULATORY - REHAB MEDICIN [facility] April 07, 2024 10:15 AM AMBULATORY - MEDICINE [facility] Apr 11, 2024 09:30 AM AMBULATORY - REHAB MEDICIN [facility] Apr 18, 2024 02:00 PM AMBULATORY - NONE [facility] Apr 20, 2024 10:30 AM AMBULATORY - REHAB MEDICIN E [facility] Apr 21, 2024 11:00 AM AMBULATORY - MEDICINE [facility] Active, Pending, [...] FIT X1 SCREEN STOOL FECES SP [facility] March 20, 2024 12:36 PM Consult Order COMMUNITY CARE-STL DENTAL SPEC Cons Lidder's Choice [facility] Lab Results: +/- 30 days [...] Mar 06, 2024 10:03 AM [facility] MICRAL/CREAT PROFILE (STL) Specimen Type: URINE No comment entered. Ordering Provider: MANUEL BAIRD Report Released Date/Time: Mar 06, 2024 09:47 AM Reporting Lab: [place] [address] [facility] [address] Performing Lab: [address] [address] URINE ALBUMIN (PB-STL) 114.8 mg/L uACR (STL) 59 mg/g H 0-29 CREATININE URINE/OTHERS 193.6 mg/dL H 63-166 Mar 06, 2024 09:52 AM [facility] HGA1C Specimen Type: BLOOD No comment entered. Ordering Provider: MANUEL BAIRD Report Released Date/Time: Mar 06, 2024 09:47 AM Reporting Lab: [address] [address] Performing Lab: [facility] [address] [facility] [address] HGA1C 7.0 H 4.0-6.0 Mar 06, 2024 09:52 AM [facility] LIPID PANEL (STL) Specimen Type: PLASMA Comment: No hemolysis noted. Ordering Provider: MANUEL BAIRD Report Released Date/Time: Mar 06, 2024 09:47 AM Reporting Lab: [address] [address] Performing Lab: [address] [address] CHOLESTEROL 161 mg/dL 0-200 TRIGLYCERIDE 119 mg/dL 0-150 CALCULATED LDL 107 mg/dL HDL(New) 30 mg/dL L >40 Mar 06, 2024 09:52 AM [facility] PROST. SPECIFIC AG.(PB-STL) Specimen Type: SERUM Comment: The listed sex of this patient may not be a typical indication for this test. Therefore, reference ranges or interpretive criteria listed may not be valid. Clinical correlation suggested. Ordering Provider: MANUEL BAIRD Report Released Date/Time: Mar 06, 2024 09:47 AM Reporting Lab: [address] [address] Performing Lab: [address] [address] PROST. SPECIFIC AG.(PB-STL) 0.919 ng/mL 0-4 Mar 06, 2024 09:52 AM [facility] COMPREHENSIVE METABOLIC PANEL Specimen Type: PLASMA Comment: No hemolysis noted. Ordering Provider: MANUEL BAIRD Report Released Date/Time: Mar 06, 2024 09:47 AM Reporting Lab: [address] [address] Performing Lab: [address] [address] CREATININE 0.87 mg/dL 0.7-1.3 UREA NITROGEN 14.7 [...] Mar 06, 2024 09:52 AM [facility] TSH (MA-PB) Specimen Type: SERUM Comment: The listed sex of this patient may not be a typical indication for this test. Therefore, reference ranges or interpretive criteria listed may not be valid. Clinical correlation suggested. Ordering Provider: MANUEL BAIRD Report Released Date/Time: Mar 06, 2024 09:47 AM Reporting Lab: [address] [address] Performing Lab: [address] [address] TSH 2.984 u[IU]/mL 0.47-5 Mar 06, 2024 09:52 AM [facility] CBC Specimen Type: BLOOD No comment entered. Ordering Provider: MANUEL BAIRD Report Released Date/Time: Mar 06, 2024 09:47 AM Reporting Lab: [address] [address] Performing Lab: [address] [address] WBC 4.4 10*3/uL 3.6-11.2 RBC 5.19 10*6/uL [...] 2017 ADVANCE DIRECTIVE DISCUSSION ERICK BARDALES [facility] Encounter Notes: All associated encounter notes This section contains the clinical notes associated to the Encounter. Date/Time Encounter Note(s) Provider Source Feb 07, 2024 09:52 AM [facility] NOTE: LOCAL TITLE: [place] ACUPUNCTURE NOTE STANDARD TITLE: [facility] NOTE DATE OF NOTE: FEB 07, 2024@09:52 ENTRY DATE: FEB 07, 2024@09:53 AUTHOR: ZANDER FINE COSIGNER: URGENCY: STATUS: COMPLETED Follow up visit Maize Acupuncture/Maize Acupressure was the only treatment given. Patient was evaluated and agreed to receive Maize Acupuncture (BFA). Patient was evaluated and agreed to receive [place]ize Acupuncture Protocol (BFA)/Maize Acupressure (BAA) for the following pain condition(s): Comment: back Pre BFA/BAA Numeric Pain Rating Scale of site with highest pain: number from 0-10: 5 The patient was asked the following questions: During the past 24 hours, how much has your pain interfered with your usual activity? number from 0-10: 5 During the past 24 hours, how much has your pain interfered with your usual sleep? number from 0-10: 5 During the past 24 hours, how much has the pain affected your usual mood? number from 0-10: 5 During the past 24 hours, how much has pain contributed to your stress? number from 0-10: 5 Oral Informed Consent obtained for BFA/BAA Procedure: Ear was prepped with alcohol Needle type: Ear press tacks The following points were placed: All 10 points in both ears Complications: Patient tolerated well, without any complications. Post treatment Numeric Pain Rating Scale: number from 0-10: 5 Standard [id number] time for application of BFA/BAA protocol is [...] tape that holds the needle in place. -Mason must be placed in a sharps container [...] your condition worsen. /shen/ ZANDER FINE, MSN, REMOTE CODERS, LOW PRESSURE BOILER OPERATOR-C, DipACLM //[facility] NURSE PRACTITIONER Signed: 02/07/2024 09:53 ZANDER FINE [facility]
--- OUTSIDE RECORDS SUMMARY | 2024-11-17 03:48 | XMS_ITS ---
Author Name [facility] [facility] [place] Address [address] [place] [address] Care Team Providers Care Creative Coordinator Name Role Phone MANUEL BAIRD Primary [...] PART A Apr 08, 2017 PART A [id number] [phone] ASHLEY WALKER PATIENT Selected Encounter This section includes the information on record at OR for the Encounter. Date/Time Encounter Type Encounter Description Reason Pro vider Source Feb 14, 2024 09:16 AM Outpatient Encounter ADMIN PAT ACTIVTIES (MASNONCT) [...] 20 appointments. The data comes from all [facility]. Appointment Date/Time Appointment Type Appointme nt Facility Name Feb 17, 2024 11:30 AM AMBULATORY - MEDICINE [facility] Feb 21, 2024 10:00 AM AMBULATORY - NONE [facility] Feb 28, 2024 01:30 PM AMBULATORY - REHAB MEDICIN [facility] Feb 29, 2024 09:00 AM AMBULATORY - NONE [facility] Mar 06, 2024 09:00 AM AMBULATORY - NONE [facility] Mar 06, 2024 11:00 AM AMBULATORY - REHAB MEDICIN E [facility] March 15, 2024 09:00 AM AMBULATORY - NONE [facility] March 16, 2024 09:30 AM AMBULATORY - MEDICINE [facility] March 20, 2024 09:30 AM AMBULATORY - MEDICINE [facility] March 21, 2024 09:30 AM AMBULATORY - REHAB MEDICIN E [facility] March 27, 2024 08:30 AM AMBULATORY - NONE [facility] March 28, 2024 10:00 AM AMBULATORY - REHAB MEDICIN [facility] April 04, 2024 09:30 AM AMBULATORY - REHAB MEDICIN [facility] April 07, 2024 10:15 AM AMBULATORY - MEDICINE [facility] Apr 11, 2024 09:30 AM AMBULATORY - REHAB MEDICIN [facility] Apr 18, 2024 02:00 PM AMBULATORY - NONE [facility] Apr 20, 2024 10:30 AM AMBULATORY - REHAB MEDICIN [facility] Apr 21, 2024 11:00 AM AMBULATORY - MEDICINE [facility] 2024 10:00 AM AMBULATORY - MEDICINE [facility] May 02, 2024 10:00 AM AMBULATORY - SURGERY [facility] Active, Pending, and Scheduled Orders This [...] X1 SCREEN STOOL FECES SP [facility] March 20, 2024 12:36 PM Consult Order [facility] DENTAL SPEC Cons Visual Education Director's Choice [facility] Lab Results: +/- 30 days of [...] Mar 06, 2024 10:03 AM [facility] MICRAL/CREAT PROFILE (STL) Specimen Type: URINE No comment entered. Ordering Provider: MANUEL BAIRD Report Released Date/Time: Mar 06, 2024 09:47 AM Reporting Lab: [facility] [address] [place] [id number] Performing Lab: [address] [address] URINE ALBUMIN (PB-STL) 114.8 mg/L uACR (STL) 59 mg/g H 0-29 CREATININE URINE/OTHERS 193.6 mg/dL H 63-166 Mar 06, 2024 09:52 AM [facility] HGA1C Specimen Type: BLOOD No comment entered. Ordering Provider: MANUEL BAIRD Report Released Date/Time: Mar 06, 2024 09:47 AM Reporting Lab: [address] [address] Performing Lab: [address] [address] HGA1C 7.0 H 4.0-6.0 Mar 06, 2024 09:52 AM [facility] LIPID PANEL (STL) Specimen Type: PLASMA Comment: No hemolysis noted. Ordering Provider: MANUEL BAIRD Report Released Date/Time: Mar 06, 2024 09:47 AM Reporting Lab: [address] [address] Performing Lab: [address] [address] CHOLESTEROL 161 mg/dL 0-200 TRIGLYCERIDE 119 mg/dL 0-150 CALCULATED LDL 107 mg/dL HDL(New) 30 mg/dL L >40 Mar 06, 2024 09:52 AM [facility] PROST. SPECIFIC AG.(PB-STL) Specimen Type: SERUM Comment: The listed sex of this patient may not be a typical indication for this test. Therefore, reference ranges or interpretive criteria listed may not be valid. Clinical correlation suggested. Ordering Provider: MANUEL BAIRD Report Released Date/Time: Mar 06, 2024 09:47 AM Reporting Lab: [place] [id number] Performing Lab: [place] [id number] PROST. SPECIFIC AG.(PB-STL) 0.919 ng/mL 0-4 Mar 06, 2024 09:52 AM [facility] COMPREHENSIVE METABOLIC PANEL Specimen Type: PLASMA Comment: No hemolysis noted. Ordering Provider: MANUEL BAIRD Report Released Date/Time: Mar 06, 2024 09:47 AM Reporting Lab: [address] [address] Performing Lab: [address] [address] CREATININE 0.87 mg/dL 0.7-1.3 UREA NITROGEN 14.7 [...] Mar 06, 2024 09:52 AM [facility] TSH (MA-PB) Specimen Type: SERUM Comment: The listed sex of this patient may not be a typical indication for this test. Therefore, reference ranges or interpretive criteria listed may not be valid. Clinical correlation suggested. Ordering Provider: MANUEL BAIRD Report Released Date/Time: Mar 06, 2024 09:47 AM Reporting Lab: [facility] [address] [facility] [address] Performing Lab: [facility] [address] [facility] [address] TSH 2.984 u[IU]/mL 0.47-5 Mar 06, 2024 09:52 AM [facility] CBC Specimen Type: BLOOD No comment entered. Ordering Provider: MANUEL BAIRD Report Released Date/Time: Mar 06, 2024 09:47 AM Reporting Lab: [facility] [address] [facility] [phone] Performing Lab: [facility] [address] [facility] [address] WBC 4.4 10*3/uL 3.6-11.2 RBC 5.19 10*6/uL [...] 10:34 AM QUIT TOBACCO >7 YEARS AGO [facility] Tobacco Use History This section includes a history of the smoking, or tobacco-related health factors, that were collected on or before the date of the Encounter. The data comes from the [place] facility where the Encounter took place. Date/Time Smoking Status/Tobacco Use Comment F acility Sep 30, 2015 10:12 AM QUIT TOBACCO >7 YEARS AGO [facility] Oct 29, 2014 10:23 AM QUIT TOBACCO >7 YEARS AGO [facility] Dec 27, 2013 01:27 PM QUIT TOBACCO >7 YEARS AGO [facility] Feb 24, 2013 02:01 PM LIFETIME NON-USER OF TOBACCO [facility] Feb 11, 2009 10:09 AM QUIT TOBACCO >7 YEARS AGO [facility] Oct 06, 2006 09:30 AM CURRENT NON-TOBACC O USER-HX OF USE [facility] Oct 06, 2006 09:30 AM TOBACCO TERMINATION STAGE [facility] Advance Directives: All historical and current [...] 19, 2017 ADVANCE DIRECTIVE DISCUSSION ERICK BARDALES [facility] Radiology Reports: +/- 30 days [...] E W/BLOOD FLOW DOPPLER (STL): CHET WALKER [id number] -[id number] M Exm Date: MARCH 15, 2024@08:01 Req Phys: MANUEL BAIRD Loc: [facility] PACT STAR RES 4 (Req'g Img Loc: [facility]ULTRASOUND Service: [facility] [address] [place] [address] (Case [id number] COMPLETE) US ABDOMEN COMPLETE REDUCE SERVIC(US Detailed) CPT:20484 CPT Modifiers : 52 REDUCED SERVICES Reason for Study: thrombocytopenia, please check liver and spleen. (Case [id number] COMPLETE) US BLOOD FLOW ABD/RENAL DOPPLER ((US Detailed) CPT:93885 Clinical History: Report Status: Verified Date Reported: MARCH 15, 2024 Date Verified: MARCH 15, 2024 Morning Show Host E-Sig:/ES/YESICA LOWERY MD Report: US ABDOMEN COMPLETE REDUCE SERVICE, US BLOOD FLOW ABD/RENAL DOPPLER (COMPLETE) [id number], [id number] DATE: 03/15/2024 8:01 AM EXAM: ABDOMINAL ULTRASOUND [id number], [id number] HISTORY: thrombocytopenia, please check liver and spleen. [...] Interpreting Staff: YESICA LOWERY MD, STAFF RADIOLOGIST (Morning Show Host) Primary Interpreting Resident: Flory Guzman MD, Resident Physician /YESICA SALGUERO [facility] Encounter Notes: All associated encounter notes This section contains the clinical notes associated to the Encounter. Date/Time Encounter Note(s) Provider Source Feb 14, 2024 09:16 AM ADMINISTRATIVE NOT E: LOCAL TITLE: CONTACT NOTE ST STANDARD TITLE: ADMINISTRATIVE NOTE DATE OF NOTE: FEB 14, 2024@09:16 ENTRY DATE: FEB 14, 2024@09:17:08 AUTHOR: ANGELA ROONEY EXP COSIGNER: URGENCY: STATUS: COMPLETED CONTACT NOTE ST Has ADDENDA Veterans name and last 4 were used to verify identity Verified Veterans telephone #/Updated telephone number in the system REASON FOR CALL: Other: Reason for call: vet called in to follow up on compression socks. callback /es/ ANGELA GUTIERREZ Signed: 02/14/2024 09:19 Receipt Acknowledged By: 02/14/2024 15:00 /shen/ CHARITY HALL REGISTERED NURSE 02/14/2024 ADDENDUM STATUS: COMPLETED Patient Contacted, See 02/14/24 V15 PACT Telephone Contact Note /camryn HALL REGISTERED NURSE Signed: 02/14/2024 15:00 ANGELA ROONEY [facility]
--- OUTSIDE RECORDS SUMMARY | 2024-11-17 03:48 | XMS_ITS | Encounter Summary ---
Author Name [facility] [facility] [place] Address [address] [place] [address] Care Team Providers Care Band Presser Name Role Phone JUAN THOMAS Primary Care Provider Unavailabl e Insurance [...] PART A Apr 08, 2017 PART A [id number] ASHLEY FINK PATIENT Selected Encounter This section includes the information on record at [place] for the Encounter. Date/Time Encounter Type Encounter Description Reason Provider Source Feb 02, 2024 10:15 AM OFFICE O/P EST HI 40 MIN PRIMARY CARE/MEDICINE ICD-10-CM R06.00 Dyspnea, unspecified JUAN THOMAS IHNav Encounter Template Text not used by [facility] Assessments - Encounter Diagnoses This section includes the primary and secondary diagnoses documented for the Encounter. Date/Time Primary/Secondary Diagnosis Diagnosis Name Provider Source Feb 02, 2024 11:04 AM PRIMARY Dyspnea, unspecified JAYNE OQUENDO [facility] Feb 02, 2024 11:04 AM SECONDARY Contact with and exposure to other hazardous substances JEANIE YOUNG [place] BRAGG [facility] Feb 02, 2024 11:04 AM SECONDARY Edema, unspecified [facility] Feb 02, 2024 11:04 AM SECONDARY Essential (primary) hypertension [facility] Feb 02, 2024 11:04 AM SECONDARY Gastro-esophageal reflux disease without esophagitis [facility] Feb 02, 2024 11:04 AM SECONDARY Hyperlipidemia, unspecified [facility] Feb 02, 2024 11:04 AM SECONDARY Low back pain, unspecified [facility] Feb 02, 2024 11:04 AM SECONDARY Mild persistent asthma, uncomplicated [facility] Feb 02, 2024 11:04 AM SECONDARY Obesity, unspecified [facility] Feb 02, 2024 11:04 AM SECONDARY Shortness of breath [facility] Feb 02, 2024 11:04 AM SECONDARY Spinal stenosis, lumbar region with neurogenic claudication [facility] Feb 02, 2024 11:04 AM SECONDARY Type 2 diabetes mellitus with diabetic polyneuropathy [facility] Feb 02, 2024 11:04 AM SECONDARY Type 2 diabetes w diabetic autonomic (poly)neuropathy [facility] Feb 02, 2024 11:04 AM SECONDARY Unilateral post-traumatic osteoarthritis, left knee [facility] Plan of Treatment: Future Appointments (+ 6 months) and Future Tests (+/- 45 days) The Plan of Treatment section includes future care activities for the patient from all [place] treatmentfacilities. This section includes future appointments and future orders which are active, pending or scheduled. Future Appointments This section includes appointments that were scheduled to occur 6 months from the date of the Encounter, up to a maximum of 20 appointments. The data comes from all [place] treatment facilities. Appointment Date/Time Appointment Type Appointme nt Facility Name Feb 07, 2024 10:00 AM AMBULATORY - [facility] Feb 10, 2024 11:00 AM AMBULATORY - MEDICINE [facility] Feb 11, 2024 11:00 AM AMBULATORY - MEDICINE [facility] Feb 17, 2024 11:30 AM AMBULATORY - MEDICINE [facility] Feb 21, 2024 10:00 AM AMBULATORY - NONE [facility] Feb 28, 2024 01:30 PM AMBULATORY - REHAB [facility] Feb 29, 2024 09:00 AM AMBULATORY - NONE [facility] Mar 06, 2024 09:00 AM AMBULATORY - NONE [facility] Mar 06, 2024 11:00 AM AMBULATORY - REH[facility] March 15, 2024 09:00 AM AMBULATORY - NONE [facility] March 16, 2024 09:30 AM AMBULATORY - MEDICINE [facility] March 20, 2024 09:30 AM AMBULATORY - MEDICINE [facility] March 21, 2024 09:30 [facility] March 27, 2024 08:30 AM AM[facility]ULATORY - NONE [facility] March 28, 2024 10:00 AM AMBULATORY - REH[facility] April 04, 2024 09:30 [facility] April 07, 2024 10:15 AM AMBULATORY - MEDICINE [facility] Apr 11, 2024 09:30 [facility] Apr 18, 2024 02:00 PM AMBULATORY - NONE [facility] Apr 20, 2024 10:30 [facility] Active, Pending, and Scheduled Orders This section includes a listing of several types of active, pending, and scheduled orders, including clinic medications orders, diagnostic test orders, procedure orders and consult orders; where the start date of the order is 45 days before the date of the Encounter or 45 days after the date of theEncounter. The data comes from all [place] treatment facilities. Test Date/Time Test Type Test Details Facility Name Feb 02, 2024 12:00 AM Laboratory - Chemi anabelley Order OCCULT BLOOD FIT X1 SCREEN STOOL FECES [facility] Vital Signs: All taken on the encounter date This section contains inpatient and outpatient Vital Signs collected on the date of the Encounter. Date/Time Temperature Pulse Blood Pressure Respiratory Rate SP02 Pain Height Weight Body Mass Index Source Feb 02, 2024 10:05 AM 143/[address] [facility] Feb 02, 2024 10:03 AM 98 74 158/82 18 95 0 230.[address] [facility] Social History: Smoking Status (Most current) and Tobacco Use (All prior to encounter date) This section includes the most current, and the historical, smoking and tobacco- related health factors from the [facility] where the Encounter took place. Current Smoking Status This section includes the most current smoking, or tobacco-related health factor, from the [place] facility where the Encounter took place. Date/Time Current Smoking Status Comment Facil ity March 22, 2023 10:00 AM [place]-TOBACCO FORMER USER [facility] Tobacco Use History This section includes a history of the smoking, or tobacco-related health factors, that were collected on or before the date of the Encounter. The data comes from the [place] facility where the Encounter took place. Date/Time Smoking Status/Tobacco Use Comment F acility March 22, 2023 10:00 AM [place]-TOBACCO QUIT 15 YRS OR MORE [facility] Jan 29, 2022 03:00 PM [place]-TOBACCO FORMER USER [facility] Jan 29, 2022 03:00 PM VA-TOBACCO QUIT 15 YRS OR MORE [facility] Feb 07, 2019 04:17 PM [place]-TOBACCO FORMER USER [facility] Feb 07, 2019 04:17 PM [place]-TOBACCO QUIT 15 YRS OR MORE [facility] March 09, 2018 12:36 PM QUIT TOBACCO >7 YEARS AGO [facility] Aug 05, 2017 02:36 PM QUIT TOBACCO >7 YEARS AGO [facility] Advance Directives: All historical and current Section Date Range: From patient's date of to the date document was created. This section includes ALL of a patient's completed or amended [place] Advance and Rescinded Directives. The entries below indicate that a directive exists for the patient, but an actual copy is not included with this document. The data comes from all [facility]. Date Advance Directives Provider Source Jan 19, 2017 ADVANCE DIRECTIVE DISCUSSION ERICK BARDALES [facility] Encounter Notes: All associated encounter notes This section contains the clinical notes associated to the Encounter. Date/Time Encounter Note(s) Provider Source March 15, 2024 01:59 PM PHYSICIAN LETTERS: LOCAL TITLE: TEST RESULT GENERAL LETTER STL STANDARD TITLE: PHYSICIAN LETTERS DATE OF NOTE: MARCH 15, 2024@13:59 ENTRY DATE: MARCH 15, 2024@13:59:38 AUTHOR: JUAN THOMAS EXP COSIGNER: URGENCY: STATUS: COMPLETED [facility] [address] [place] [address] MARCH 15, 2024 ABIEL FINK [address], [place] [address] Dear Abiel Fink, I would like to update you on your recent test results. OTHER TEST RESULTS RADIOLOGY (NON-INVASIVE TEST RESULTS): Impression: 1. The liver displays slightly increased echotexture with is nonspecific but can be seen with fatty infiltration. 2. Splenomegaly measuring 15.6 cm in length. Ultrasound showed possible fatty liver and enlarged spleen. We will refer you to a exercise instructor. FUTURE APPOINTMENTS: 03/16/2024 09:30 [facility]-MAN PHARM MED MGMT 03/20/2024 09:30 [facility]-DENTAL DDS2 03/21/2024 09:30 [facility]-PT ROTARY DRYER OPERATOR 2 03/27/2024 08:30 [facility]-WSH HW BFA GROUNDS PERSON GRP 03/28/2024 10:00 Y[facility]-PHYSICAL THERAPY 3 05/02/2024 10:00 Y[facility]-PODIATRY QI 05/16/2024 11:00 YASH-OPTOMETRY 1 11/21/2024 10:00 [facility]-DENTAL HYG 1 Sincerely, juan thomas M.D. Staff Physician ABIEL FINK YAFEI [facility] March 08, 2024 11:36 AM PHYSICIAN LETTERS: LOCAL TITLE: TEST RESULT GENERAL LETTER STL STANDARD TITLE: PHYSICIAN LETTERS DATE OF NOTE: MARCH 08, 2024@11:36 ENTRY DATE: MARCH 08, 2024@11:36:15 AUTHOR: JUAN THOMAS EXP COSIGNER: URGENCY: STATUS: COMPLETED [facility] [address] [place] [address] MARCH 08, 2024 ABIEL FINK [address] [place], [place] [address] Dear Abiel Fink, I would like to [...] optimal is between 100 and 129). TRIGLYCERIDE 119 mg/dL 03/06/2024 09:52 CHOLESTEROL 161 mg/dL 03/06/2024 09:52 HDL(New) 30 L mg/dL 03/06/2024 09:52 CALCULATED LDL 107 mg/dL 03/06/2024 09:52 No DIRECT LDL EO data found The results are similar to previous values and not a clinical concern. Please continue to take your atorvastatin. HEMOGLOBIN A1C - Gives us information about your diabetes (sugar or glucose) control over the past 3 months. Your target is to keep your A1C below 7.5 %. HGA1C 7.0 H % 03/06/2024 09:52 Congratulations! Your hemoglobin A1c has improved significantly, and is currently at goal. MICROALBUMIN - The microalbumin to creatinine ratio test is most commonly used to screen for kidney problems. MICROALBUMIN No MICRAL/CREAT RATIO 59 These results are abnormal. You have small amount of protein in your urine, which is likely secondary to kidney damage from diabetes. CBC - A complete blood count (CBC) gives important information about the kinds and numbers of cells in the blood, especially red blood cells, white blood cells, and platelets. HGB 14.7 g/dL 03/06/2024 09:52 HEMATOCRIT 43.7 % (03/06/24 09:52) PLT 110 L 10*3/uL 03/06/2024 09:52 WHITE BLOOD COUNT 4.4 10*3/uL (03/06/24 09:52) As we have discussed over the phone, I will order ultrasound of the liver and spleen to look for causes of low platelet count. In the meantime please reduce your intake of meloxicam/ibuprofen. CHEM 7 - This is important information about the current status of your kidneys, liver, and electrolyte and acid/base balance as well as of your blood sugar and blood proteins. SODIUM 140 mEq/L 03/06/2024 09:52 POTASSIUM 4.3 mEq/L 03/06/2024 09:52 CHLORIDE 109 H mEq/L 03/06/2024 09:52 UREA NITROGEN 14.7 mg/dL 03/06/2024 09:52 CREATININE 0.87 mg/dL 03/06/2024 09:52 CALCIUM 9.1 mg/dL 03/06/2024 09:52 CARBON DIOXIDE 22 mEq/L 03/06/2024 09:52 GLUCOSE 128 H mg/dL 03/06/2024 09:52 EGFR (CKD-EPI 2020) 92.3 03/06/2024 09:52 The results are similar to previous values and not a clinical concern. LIVER FUNCTION PANEL - These are tests for liver function: PROTEIN 7.1 g/dL 03/06/2024 09:52 ALBUMIN 3.8 g/dL 03/06/2024 09:52 TOTAL BILIRUBIN 0.6 mg/dL 03/06/2024 09:52 ALKALINE PHOSPHATASE 82 U/L 03/06/2024 09:52 AST/SGOT 47 H U/L 03/06/2024 09:52 ALT/SGPT 45 H U/L 03/06/2024 09:52 The results are similar to previous values and not a clinical concern. PSA - Prostate-specific antigen is a protein produced by cells of the prostate gland. The PSA test measures the level of PSA in the blood. PSA PROST. SPECIFIC AG.(PB-STL) 0.919 ng/mL 03/06/2024 09:52 These readings are within normal limits. TSH - Thyroid-stimulating hormone (also known as TSH or thyrotropin) is a peptide hormone synthesized and secreted by thyrotrope cells in the anterior pituitary gland, which regulates the endocrine function of the thyroid gland. TSH TSH 2.984 uIU/mL 03/06/2024 09:52 These readings are within normal limits. FUTURE APPOINTMENTS: 03/16/2024 09:30 Y[facility]-MAN PHARM MED MGMT 03/20/2024 09:30 YASH-DENTAL DDS2 03/21/2024 09:30 YASH-PT ROTARY DRYER OPERATOR 2 03/27/2024 08:30 Y[facility]-WSH HW BFA GROUNDS PERSON GRP 03/28/2024 10:00 YASH-PHYSICAL THERAPY 3 05/02/2024 10:00 YASH-PODIATRY QI 05/16/2024 11:00 YASH-OPTOMETRY 1 11/21/2024 10:00 YASH-DENTAL HYG 1 Sincerely, juan thomas M.D. Staff Physician ABIEL FINK,[facility] Feb 02, 2024 10:27 AM ACCOUNTING OF DISC LOSURES NOTE: LOCAL TITLE: STATE PRESCRIPTION DRUG MONITORING PROGRAM STANDARD TITLE: ACCOUNTING OF DISCLOSURES NOTE DATE OF NOTE: FEB 02, 2024@10:27:57 ENTRY DATE: FEB 02, 2024@10:27:57 AUTHOR: JUAN THOMAS EXP COSIGNER: URGENCY: STATUS: COMPLETED This PDMP query was submitted by Juan Thomas MD. The clinical justification for this PDMP query is to review controlled substances prescribed outside of the [place], and any additional information that may become available, as an important component of standard clinical care, and in accordance with [facility] policy. Patient information was shared with the PDMP [place]. No prescription(s) for controlled substances outside the [place] were found in the last 90 days. /shen/ juan thomas M.D. Staff Physician Signed: 02/02/2024 10:29 [facility] Feb 02, 2024 10:05 AM NURSING NOTE: LOCAL TITLE: V15 PACT FACE TO FACE NOTE STL STANDARD TITLE: NURSING NOTE DATE OF NOTE: FEB 02, 2024@10:05 ENTRY DATE: FEB 02, 2024@10:05:31 AUTHOR: FABRICIO CAMEJO EXP COSIGNER: URGENCY: STATUS: COMPLETED Provider Visit: Patient Identifiers : Full Name Date of Reason for visit: Established Follow-Up Mode of Arrival: Assistive Device: Cane Allergy Review: TRAMADOL Allergy list reviewed and remains current. Recent Vital Signs: Temperature: 98 F [36.7 C] (02/02/2024 10:03) Pulse: 74 (02/02/2024 10:03) Respiration: 18 (02/02/2024 10:03) B/P: 143/67 (02/02/2024 10:05) Pain: 0 (02/02/2024 10:03) Wt: 230.3 lb [104.46 kg] (02/02/2024 10:03) Ht: 70 in [177.8 cm] (11/18/2021 10:46) BMI: 33.1 POX: 95% (02/02/2024 10:03) Blood sugar glucometer readin Would you like to discuss any personal problem, family problem, alcohol use, drug use, or a mental or emotional illness? No Contact provided Primary Care phone number and encouraged to call if any questions or concerns. Review that after hours nurse line [phone] and emergency room are available 31/05 for patient use. Contact verbalized good understanding. No notification required for this note. Homelessness/Food Insecurity Screen: In the past 2 months, have you been living in stable housing that you own, rent, or stay in as part of a household? Yes - Living in stable housing. Are you worried or concerned that in the next 2 months you may NOT have stable housing that you own, rent, or stay in as part of a household? No - Not worried about housing near future The reports the following: Within the past 12 months, you worried whether your food would run out before you got money to buy more. Never true Within the past 12 months, the food you bought just didn't last and you didn't have money to get more. Never true Influenza Immunization: The patient declines to receive the recommended dose of seasonal influenza vaccine. Immunization: INFLUENZA, UNSPECIFIED FORMULATION Refusal Reason: PATIENT DECISION Patient refuses all immunization(s) in the FLU group Date Documented: 02/02/24 10:07 /shen/ FABRICIO CAMEJO LPN LICENSED PRACTICAL NURSE Signed: 02/02/2024 10:07 FABRICIO CAMEJO [facility] Feb 02, 2024 09:57 AM PRIMARY CARE NOTE: LOCAL TITLE: PRIMARY CARE PROVIDER ESTABLISHED VISIT ST STANDARD TITLE: PRIMARY CARE NOTE DATE OF NOTE: FEB 02, 2024@09:57 ENTRY DATE: FEB 02, 2024@09:58:02 AUTHOR: JAYNE OQUENDO COSIGNER: JUAN THOMAS URGENCY: STATUS: COMPLETED PRIMARY CARE PROVIDER ESTABLISHED VISIT STL Has ADDENDA CC: Diabetes, Chronic Pain HPI: ABIEL FINK is a 73 MALE with PMHx NAFLD, Obesity, HTN, JACQUELINE, GERD, CLBP, OA of L knee, and 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 Last clinic visit: July 21 Active concerns today: #Dyspnea: patient notes longstanding history of dyspnea with exertion including previous diagnosis of asthma. However, this has specifically worsened in the past 1-2 months to the point where even simply bending over to tie his shoes provokes dyspnea. He notes using his albuterol rescue inhaler does provide relief during these episodes. No chest pain, orthopnea, wheezing. He notes some chronic leg swelling but this has been stable and was previously attributed to peripheral neuropathy. Last PFTs 03/2021: mild reduction in TLC to 78% pred, otherwise normal spirometry and DLCO. He quit smoking in his 20s. Notably some recent weight gain, up to 230 lbs today. # DM with Neuropathy: A1C 8.8% in 11/2023. Follows with [facility] clinical pharmacy, with current regimen Metformin 1g BID, Semaglutide 1mg weekly, Glargine 90u dialy, and Aspart 6u before dinner. Continues to have significant neuropathy in bilateral feet, currently on Lyrica and Duloxetine. Also moderate relief from taking THC gummies. BG 150s in clinic today. He notes his BGs seem to have improved slowly over the past month, with CGM showing 0% lows, around 65% in range, and around 35% highs. Chronic Problems: # Hip Pain and Leg [...] patient declined. PM&R discharged him in November. Of note it is unclear if he ever saw PT since no notes are available in the [facility] system. # HTN: On HCTZ 25/Lisinopril 40, though patient ran out several days ago. His BP is high in clinic today as a result. # GERD: He reports longstanding daily heartburn despite taking omeprazole 20mg in the AM before breakfast. ROS: 10/21 systems reviewed with all negative except as noted previously in HPI Medications: Active Outpatient Medications (including Supplies): ACCU-CHEK GUIDE (GLUCOSE) TEST STRIP USE 1 STRIP FOR BLOOD ACTIVE TEST TWICE A DAY FOR BLOOD SUGAR MONITORING ALBUTEROL 90MCG (CFC-F) 200D ORAL INHL INHALE 1 PUFF BY ACTIVE ORAL INHALATION FOUR TIMES A DAY NEEDED FOR BREATHING. SHAKE WELL. RINSE MOUTHPIECE FREQUENTLY TO PREVENT CLOGGING. ATORVASTATIN CALCIUM 80MG TAB TAKE ONE-HALF TABLET BY ACTIVE MOUTH EVERY EVENING FOR HIGH CHOLESTEROL DEXTROSE 24GM/31GM SQUEEZE TUBE TAKE 1 TUBE BY MOUTH ACTIVE NEEDED FOR LOW BLOOD SUGAR REPEAT DOSE IF HYPOGLYCEMIA CONTINUES 15 MINUTES AFTER THE FIRST DOSE. DULOXETINE HCL 60MG EC CAP TAKE ONE CAPSULE BY MOUTH ONCE ACTIVE A DAY FOR NERVE PAIN DO NOT ABRUPTLY DISCONTINUE MEDICATION. GLUCOSE SENSOR EvolverYLE RADHIKA 3 USE SENSOR EVERY 2 ACTIVE WEEKS FOR BLOOD SUGAR MONITORING CHANGE SENSOR/SITE EVERY 14 DAYS. TO REPLACE SENSOR FOR ANY REASON OR FOR TECHNICAL HELP PLEASE CALL [facility] HELP DESK: -SPECIFIC PHONE NUMBER: ([phone]). HCTZ 12.5/LISINOPRIL 20MG TAB TAKE 2 TABLETS BY MOUTH ACTIVE EVERY MORNING TO LOWER BLOOD PRESSURE INSULIN,ASPART(EQV-NOVLG)10 0UN/ML FLXPEN INJECT 6 UNITS ACTIVE UNDER THE SKIN ONCE A DAY BEFORE DINNER FOR DIABETES ADMINISTER 10 MINUTES BEFORE FOOD [...] FOR ACTIVE BLOOD SUGAR MONITORING USE DIRECTED LIDOCAINE 5% PATCH APPLY 1 PATCH TO SKIN SITE ONCE A DAY ACTIVE NEEDED FOR LOCAL ANESTHESIA APPLY PATCH AND PRESS FIRMLY FOR 10-15 SECONDS. KEEP ON FOR 12 HOURS THEN REMOVE PATCH FOR 12 HOURS. METFORMIN HCL 500MG 24HR SA TAB TAKE [...] TAKE ONE CAPSULE BY MOUTH EVERY ACTIVE MORNING TO LOWER STOMACH ACID. TAKE 30 MINUTES PRIOR TO FOOD. SEMAGLUTIDE 1MG/0.75ML INJ PEN 3ML INJECT 1MG UNDER THE ACTIVE SKIN EVERY WEEK FOR DIABETES TRANSPARENT DRESSING 2 3/8IN X 2 3/4IN USE/APPLY ACTIVE DRESSING(S) TO AFFECTED AREA(S) TWO TIMES PER WEEK FOR WOUND CARE Non-VA NAPROXEN NA 220MG TAB 220MG BY MOUTH NEEDED ACTIVE Allergies: TRAMADOL PMH/PSH: 1) Asthma (SNOMED CT 775762553) 2) Gastro-esophageal reflux disease (SNOMED CT 839822505) 3) Peptic Ulcer Disease * (ICD-9-CM 533.90) 4) Hypertension (SNOMED CT 25145086) 5) Pituitary Neoplasms (ICD-9-CM 194.3) 6) Hyperlipidemia (SNOMED CT 21489901) 7) Erectile dysfunction associated with type 2 diabetes mellitus 8) Osteoarthritis of knee 9) Diabetes mellitus with neuropathy 10) Low back pain 11) Obesity 12) Patellofemoral syndrome of right knee 13) History of left total knee replacement 14) History of arthroplasty of right knee FH: [place] SH: Served in the [employer] from 1970 to 1973. Lives with son at home. Walks with cane. Job: Retired, former [employer]. Etoh: occasional, few drinks per year Tobacco: currently none; previous smoker (Smoked 19 years ~1 ppd, from age 11 to 30). Ilicits: none Marital Status: Physical exam: VS: Pulse: 74 (02/02/2024 10:03) BP: 143/67 (02/02/2024 10:05) RESP: 18 (02/02/2024 10:03) Tmax: 98 F [36.7 C] (02/02/2024 10:03) Weight: 230.3 lb [104.46 kg] (02/02/2024 10:03) BMI 33.1 GEN: Elderly male in [facility], AAOx4. HEENT: NCAT, MMM, PERRLA CARDIAC: Split S2, RRR, PMI non displaced LUNG: CTAB, no wheezing ABD: +BS, soft, ND/NT. Well-healed scar over L mid abdomen. EXT: Mild 2+ pitting edema in bilateral lower extremities. No clubbing NEURO: CNII-XII grossly intact. +Grossly decreased sensation to light touch over anterior thighs. Walks with cane. PSYCH: nl affect, no AVH, SI, HI SKIN: +Silver scale rough patches over bilateral elbows/extensor surfaces, R>L. Erythema over bilateral lower shins and feet. Recent Labs: HGB A1C (last):HGA1C 8.8 H % 11/11/2023 10:38 LDL(DIRECT):____ HDL:31 mg/dL L (03/22/23 12:00) Cholesterol: CHOLESTEROL 196 mg/dL 03/22/2023 12:00 Triglycerides:140 mg/dL (03/22/23 12:00) PSA: No PSA EO data found WBC: 6.7 10*3/uL (03/22/23 12:00) RBC: 5.36 10*6/uL (03/22/23 12:00) HGB: HGB 14.9 g/dL 03/22/2023 12:00 HCT: 46.1 % (03/22/23 12:00) PLT: PLT 118 L 10*3/uL 03/22/2023 12:00 BMP: GLU:GLUCOSE 123 H mg/dL 03/22/2023 12:00 BUN:16 mg/dL (03/22/23 12:00) CRE:CREATININE 0.83 mg/dL 03/22/2023 12:00 NA: SODIUM 138 mEq/L 03/22/2023 12:00 K: POTASSIUM 4.2 mEq/L 03/22/2023 12:00 CL: 105 mEq/L (03/22/23 12:00) CO2:CARBON DIOXIDE 23 mEq/L 03/22/2023 12:00 A/P: DENISEABIEL is a 73 year old MALE [place] with: #Dyspnea #JACQUELINE #?Asthma Patient has longstanding history of SOB, but has worsened in the past 1-2 months with exertion. No chest pain, worsened leg swelling, wheezing. Suspect restrictive pathology, either OHS vs worsening of known JACQUELINE - Last PFTs 03/2021: mild reduction in TLC to 78% pred, otherwise normal spirometry and DLCO. - Last TTE 2020: hyperdynamic LVEF >70%, but no diastolic dysfunction or valvular abnormalities --> Repeating PFTs today - continue PRN albuterol - continue CPAP # Chronic Vertebrogenic Back Pain # Lumbar Spinal Stenosis # Bilateral Leg Pain Hx of sciatica and chronic lower back [...] patient declined - PM&R discharged in November --> Continue with Pregabalin, Duloxetine, Lidocaine patch, Methacarbamol --> Referring back to PT today # T2DM with Peripheral Neuropathy Currently uncontrolled, follows with clinical pharmacist on CGM - A1C: 8.8% in 11/2023 (goal 7-8% given age) - Micral/Creat ratio: 23 in 03/2023 - Foot exam: bilateral diffuse neuropathy, callus, hammer toes and high arch. Follows with podiatry, last seen 08/2023 - Eye exam: Follows with [facility], last seen 05/2023 - Currently on semaglutide 1mg weekly, Lantus 100u daily, Metformin 1g BID - Statin: Atorva 40 daily --> Continue to follow with clinical pharmacist to reach goal A1C <7.5 to 8% to facilitate dental implant surgery. --> Consider increasing Semaglutide weekly for both weight and BG control # HTN: BP elevated in clinic at 143/67 today in setting of running out of home antihypertensives. Patient reports history of white coat hypertension. - Refilling HCTZ/Lisinopril 25/40mg daily #HLD Last lipid panel 03/2023: Trigly 140 Chol 196 HDL 31 LDL 137 - Continue atorvastatin 40mg daily - Plan to recheck lipid panel at next visit #Knee Pain Hx of L Knee OA. s/p bilateral TKA with subsequent PT. Follows with Ortho, last seen 11/2021. Currently denies significant knee pain. - Last X-rays of bilateral knees in 11/2021: small R joint effusion, otherwise s/p TKA - CTM # NAFLD Last LFTs in 03/2023: AST 66 ALT 46. No alcohol use currently. - Last liver ultrasound 04/2021 with steatosis - Autoimmmune, viral, hemochromatosis w/u neg - CTM #Psoriasis Exam noted silver scale patches on extensor surfaces of elbows, c/f psoriasis. Patient denies any formal treatment in the past, has been using moisturizer creams. --> Referring to Dermatology # GERD - Patient declined to wean off PPI due to persistent daily heartburn, so will continue omeprazole 20mg daily - Consider GI referral if develops other alarm symptoms # Erectile dysfunction: Uses sildenafil, but infrequent. #Health Maintanence: - Reordered FIT today - Plan for HIV screening with next set of labs A1c: HGA1C 8.8 H % 11/11/2023 10:38 AAA US: Negative US Abd 02/2022 ASA: 50-59 ASVD >10% Colonoscopy: Due, FIT testing reordered CT low dose: N/A Depression: denies Exercise and healthy diet recommended HCV: 18-79 HEP C Ab HCV Ab (STL) Nonreactive 10/07/2018 09:50 HIV: 15-65 Statin: Atorva 40 Tobacco use: Quit ------Vaccinations------ - COVID: 01/08 Pfizer in 11/2020, 12/2020, 11/2021 + Bivalent booster 08/2022 - Flu: - Tetanus: Tdap (q10y): 09/2009 ;Td: 2020 - Shingles (>60): 01/2022 and 08/2022 - PNA: PCV13 (prevnar): 07/2017 ;PPSV23 (pneumovax >65): 03/2019 RTC: 3 month(s) or sooner PRN I spent 41 minutes with this patient encounter /shen/ JAYNE Sainz MA, MD Resident Physician Signed: 02/02/2024 11:04 /shen/ juan thomas M.D. Staff Physician Cosigned: 02/07/2024 15:35 02/07/2024 ADDENDUM STATUS: COMPLETED I have supervised during the patient encounter, reviewed and in general concur with assessment and plan as outlined above. Toxic Exposure Screening Follow-Up: Exposure Concern(s): 03/22/2023 Agent Daggett - Toxic Exposure Concern Follow-up Question(s): 03/22/2023 No Questions - Toxic Exposure Concern [place]/caregiver has health or medical concerns related to their concern of environmental exposure. Concern: neuropathy The following connections were provided to the [place]/caregiver: No connections needed at this time /shen/ juan thomas M.D. Staff Physician Signed: 02/07/2024 15:37 02/29/2024 ADDENDUM STATUS: COMPLETED PFT RESULTS without obstruction Mildly reduced FVC (78%) Normal FEV1 (2.51, 84%), FEV1/FVC (77%) mildly reduced DLCO (64% compared to 72% 2020) Overall not impressive. May have mild ILD vs chest wall/neuromuscular disease. Also need to recheck CBC. Discussed above results with patient and recommend checking CBC today. If patient has no anemia, consider TTE ECHO and possible CT of the lung for further workup. Patient verbalized good understanding. /camryn thomas M.D. Staff Physician Signed: 03/06/2024 09:47 03/08/2024 ADDENDUM STATUS: COMPLETED Lab tests resulted and noticeable for A1C 7% (significantly improved) and Urine micral 59 (increased from previous test a year ago). May consider SGLT2 inhibitors in stead of uptitrating semaglutide. Will defer to clinical pharmacist for now. Will send result letter. /camryn thomas M.D. Staff Physician Signed: 03/08/2024 11:35 03/08/2024 ADDENDUM STATUS: COMPLETED Lab results also noticeable for platelet of 110, trending down since 2019 . Consider PT/INR, HIV, HCV test next visit. will order liver/spleen imaging and consider hematology referral. Discussed all lab results with patient and he was agreeable to the plan. /camryn thomas M.D. Staff Physician Signed: 03/08/2024 11:58 JAYNE OQUENDO [facility]
--- OUTSIDE RECORDS SUMMARY | 2024-11-17 03:48 | XMS_ITS | Encounter Summary ---
Author Name [facility] [place] [facility] [place] Address [address] [place] [address] Care Team Providers Care Gunner'S Mate G Name Role Phone MANUEL BAIRD Primary Care [...] PART A Apr 08, 2017 PART A [id number] ASHLEY WALKER PATIENT Selected Encounter This section includes the information on record at [place] for the Encounter. 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 Date/Time Primary/Secondary Diagnosis Diagnosis Name Provider Source Feb 17, 2024 11:56 AM PRIMARY Type 2 diabetes w diabetic autonomic (poly)neuropathy REED COLLADO [facility] Feb 17, 2024 11:56 AM SECONDARY Essential (primary) hypertension REED COLLADO [facility] Feb 17, 2024 11:56 AM SECONDARY Hyperlipidemia, unspecified TOBIASREED [facility] Plan of Treatment: Future Appointments (+ 6 months) and Future Tests (+/- 45 days) The Plan of Treatment section includes future care activities for the patient from [facility] [place] [facility] This section includes future appointments and future orders which are active, pending or scheduled. Future Appointments This section includes appointments that were scheduled to occur 6 months from the date of the Encounter, up to a maximum of 20 appointments. The data comes from all [facility]. Appointment Date/Time Appointment Type Appointme nt Facility Name Feb 21, 2024 10:00 AM AMBULATORY - NONE [facility] Feb 28, 2024 01:30 PM AMBULATORY - REHAB MEDICIN [facility] Feb 29, 2024 09:00 AM AMBULATORY - NONE [facility] Mar 06, 2024 09:00 AM AMBULATORY - NONE [facility] Mar 06, 2024 11:00 AM AMBULATORY - REHAB MEDICIN [facility] March 15, 2024 09:00 AM AMBULATORY - NONE [facility] March 16, 2024 09:30 AM AMBULATORY - MEDICINE [facility] March 20, 2024 09:30 AM AMBULATORY - MEDICINE [facility] March 21, 2024 09:30 AM AMBULATORY - REHAB MEDICIN [facility] March 27, 2024 08:30 AM AMBULATORY - NONE [facility] March 28, 2024 10:00 AM AMBULATORY - REHAB MEDICIN E [facility] April 04, 2024 09:30 AM AMBULATORY - REHAB MEDICIN [facility] April 07, 2024 10:15 AM AMBULATORY - MEDICINE [facility] Apr 11, 2024 09:30 AM AMBULATORY - REHAB MEDICIN E [facility] Apr 18, 2024 02:00 PM AMBULATORY - NONE [facility] Apr 20, 2024 10:30 AM AMBULATORY - REHAB MEDICIN E [facility] Apr 21, 2024 11:00 AM AMBULATORY - MEDICINE [facility] 2024 10:00 AM AMBULATORY - MEDICINE [facility] May 02, 2024 10:00 AM AMBULATORY - SURGERY [facility] Julián [facility] May 04, 2024 10:30 AM AMBULATORY - REHAB MEDICIN E [facility] Active, Pending, and Scheduled Orders This section includes a listing of several types of active, pending, and scheduled orders, including clinic medications orders, diagnostic test orders, procedure orders and consult orders; where the start date of the order is 45 days before the date of the Encounter or 45 days after the date of theEncounter. The data comes from all [place] treatment facilities. Test Date/Time Test Type Test Details Facility Name Feb 02, 2024 12:00 AM Laboratory - Chemi stry Order OCCULT BLOOD FIT X1 SCREEN STOOL FECES SP [facility] March 20, 2024 12:36 PM Consult Order [facility] DENTAL SPEC Cons Foreign Clerk's Choice [facility] Lab Results: +/- 30 days of the encounter This section includes the Chemistry and Hematology Lab Results on record with [place] for the patient. Radiology Reports and Pathology Reports are provided separately, in subsequent sections. Lab Results This section contains the Chemistry/Hematology Results that were resulted 30 days before or 30 daysafter the date of the Encounter. Date/Time Source Result Type Result - Unit Interpretation Reference Range Comment Mar 06, 2024 10:03 AM [facility] MICRAL/CREAT PROFILE (STL) Specimen Type: URINE No comment entered. Ordering Provider: MANUEL BAIRD Report Released Date/Time: Mar 06, 2024 09:47 AM Reporting Lab: [facility] [address] [facility] [phone] Performing Lab: [place] [id number] [facility] [phone] URINE ALBUMIN (PB-STL) 114.8 mg/L uACR (STL) 59 mg/g H 0-29 CREATININE URINE/OTHERS 193.6 mg/dL H 63-166 Mar 06, 2024 09:52 AM [facility] HGA1C Specimen Type: BLOOD No comment entered. Ordering Provider: MANUEL BAIRD Report Released Date/Time: Mar 06, 2024 09:47 AM Reporting Lab: [facility] [address] [facility] [phone] Performing Lab: [facility] [address] [place] [phone] HGA1C 7.0 H 4.0-6.0 Mar 06, 2024 09:52 AM [facility] PROST. SPECIFIC AG.(PB-STL) Specimen Type: SERUM Comment: The listed sex of this patient may not be a typical indication for this test. Therefore, reference ranges or interpretive criteria listed may not be valid. Clinical correlation suggested. Ordering Provider: MANUEL BAIRD Report Released Date/Time: Mar 06, 2024 09:47 AM Reporting Lab: [facility] [address] [place] [phone] Performing Lab: [facility] [address] [place] [phone] PROST. SPECIFIC AG.(PB-STL) 0.919 ng/mL 0-4 Mar 06, 2024 09:52 AM [facility] LIPID PANEL (STL) Specimen Type: PLASMA Comment: No hemolysis noted. Ordering Provider: MANUEL BAIRD Report Released Date/Time: Mar 06, 2024 09:47 AM Reporting Lab: [facility] [address] [place] [phone] Performing Lab: [facility] [address] [place] [phone] CHOLESTEROL 161 mg/dL 0-200 TRIGLYCERIDE 119 mg/dL 0-150 CALCULATED LDL 107 mg/dL HDL(New) 30 mg/dL L >40 Mar 06, 2024 09:52 AM [facility] COMPREHENSIVE METABOLIC PANEL Specimen Type: PLASMA Comment: No hemolysis noted. Ordering Provider: MANUEL BAIRD Report Released Date/Time: Mar 06, 2024 09:47 AM Reporting Lab: [facility] [address] [place] [phone] Performing Lab: [facility] [address] [facility] [phone] CREATININE 0.87 mg/dL 0.7-1.3 UREA NITROGEN 14.7 [...] >60 Mar 06, 2024 09:52 AM [facility] TSH (MA-PB) Specimen Type: SERUM Comment: The listed sex of this patient may not be a typical indication for this test. Therefore, reference ranges or interpretive criteria listed may not be valid. Clinical correlation suggested. Ordering Provider: MANUEL BAIRD Report Released Date/Time: Mar 06, 2024 09:47 AM Reporting Lab: [address] [address] Performing Lab: [address] [address] TSH 2.984 u[IU]/mL 0.47-5 Mar 06, 2024 09:52 AM [facility] CBC Specimen Type: BLOOD No comment entered. Ordering Provider: MANUEL BAIRD Report Released Date/Time: Mar 06, 2024 09:47 AM Reporting Lab: [address] [address] Performing Lab: [address] [address] WBC 4.4 10*3/uL 3.6-11.2 RBC 5.19 10*6/uL [...] Height Weight Body Mass Index Source Feb 17, 2024 12:10 PM 84 227.2 33 [facility] Feb 17, 2024 11:55 AM 130/68 [facility] Social History: Smoking Status (Most current) and Tobacco Use (All prior to encounter date) This section includes the most current, and the historical, smoking and tobacco- related health factors from the [facility] where the Encounter took place. Current Smoking Status This section includes the most current smoking, or tobacco-related health factor, from the [place] facility where the Encounter took place. Date/Time Current Smoking Status Comment Radhika ity March 22, 2023 10:00 AM [place]-TOBACCO FORMER USER [facility] Tobacco Use History This section includes a history of the smoking, or tobacco-related health factors, that were collected on or before the date of the Encounter. The data comes from the [place] facility where the Encounter took place. Date/Time Smoking Status/Tobacco Use Comment F acility March 22, 2023 10:00 AM [place]-TOBACCO QUIT 15 YRS OR MORE [facility] Jan 29, 2022 03:00 PM VA-TOBACCO FORMER USER [facility] Jan 29, 2022 03:00 PM VA-TOBACCO QUIT 15 YRS OR MORE [facility] Feb 07, 2019 04:17 PM VA-TOBACCO FORMER USER [facility] Feb 07, 2019 04:17 PM VA-TOBACCO QUIT 15 YRS OR MORE [facility] March 09, 2018 12:36 PM QUIT TOBACCO >7 YEARS AGO [facility] Aug 05, 2017 02:36 PM QUIT TOBACCO >7 YEARS AGO [facility] Advance Directives: All historical and current Section Date Range: From patient's date of to the date document was created. This section includes ALL of a patient's completed or amended [place] Advance and Rescinded Directives. The entries below indicate that a directive exists for the patient, but an actual copy is not included with this document. The data comes from all [place] facilities. Date Advance Directives Provider Source Jan 19, 2017 ADVANCE DIRECTIVE DISCUSSION ERICK BARDALES [facility] Radiology Reports: +/- 30 days [...] the Encounter. The data comes from all [place] treatment facilities. Date/Time Radiology Report Provider Source March 15, 2024 08:01 AM US ABDOMEN COMPLET E W/BLOOD FLOW DOPPLER (STL): CHET WALKER [id number] -[id number] M Ex Date: MARCH 15, 2024@08:01 Req Phys: MANUEL BAIRD Loc: [facility] PACT STAR RES 4 (Req'g Img Loc: [facility]-ULTRASOUND [facility] Service: Unknown [address] [address] (Case [id number] COMPLETE) US ABDOMEN COMPLETE REDUCE SERVIC(US Detailed) CPT:08161 CPT Modifiers : 52 REDUCED SERVICES Reason for Study: thrombocytopenia, please check liver and spleen. (Case [id number] COMPLETE) US BLOOD FLOW ABD/RENAL DOPPLER ((US Detailed) CPT:30634 Clinical History: Report Status: Verified Date Reported: MARCH 15, 2024 Date Verified: MARCH 15, 2024 Airport Ramp Agent E-Sig:/ES/YESICA LOWERY MD Report: US ABDOMEN COMPLETE REDUCE SERVICE, US BLOOD FLOW ABD/RENAL DOPPLER (COMPLETE) [id number], [id number] DATE: 03/15/2024 8:01 AM EXAM: ABDOMINAL ULTRASOUND [id number], [id number] HISTORY: thrombocytopenia, please check liver and spleen. [...] Interpreting Staff: YESICA LOWERY MD, STAFF RADIOLOGIST (Airport Ramp Agent) Primary Interpreting Resident: Flory Guzman MD, Resident Physician /YESICA SALGUERO [facility] Encounter Notes: All associated encounter notes This section contains the clinical notes associated to the Encounter. Date/Time Encounter Note(s) Provider Source Feb 17, 2024 11:30 AM INTERNAL MEDICINE CLINICAL PHARMACIST MEDICATION MGT NOTE: LOCAL TITLE: CLINICAL PHARMACIST NOTE ST STANDARD TITLE: INTERNAL MEDICINE CLINICAL PHARMACIST MEDICATION DATE OF NOTE: FEB 17, 2024@11:30 ENTRY DATE: FEB 17, 2024@11:30:59 AUTHOR: REED COLLADO EXP COSIGNER: URGENCY: STATUS: COMPLETED CLINICAL PHARMACY FOLLOW-UP Subjective: CHET WALKER is a 73 MALE who presents to clinic for follow up on DM. PMH: 1) Asthma (SNOMED CT 733715348) 2) Gastro-esophageal reflux disease (SNOMED CT 237653110) 3) Peptic Ulcer Disease * (ICD-9-CM 533.90) 4) Hypertension (SNOMED CT 20995645) 5) Pituitary Neoplasms (ICD-9-CM 194.3) 6) Hyperlipidemia (SNOMED CT 52922530) 7) Erectile dysfunction associated with type 2 diabetes mellitus 8) Osteoarthritis of knee 9) Diabetes mellitus with neuropathy 10) Low back pain 11) Obesity 12) Patellofemoral syndrome of right knee 13) History of left total knee replacement 14) History of arthroplasty of right knee 15) Exposure to potentially hazardous substance During the last contact with vet, the following changes were made: --start jennifer During current visit: States the meter is a tattle tail. If goes up does comeback down. Dietary/Lifestyle/Social History modifications made: diet changes yes and no , when it spikes he makes changes --had biscuits gravy and OK and it increased and realized the juice was too much ROS: DM (-) hypoglycemia symptoms or values <80 mg/dL (-) hyperglycemia symptoms (-) tingling/numbness (-) N/V/D/C HLD (-) CP (-) muscle pain/cramps HTN (-) orthostasis (-) edema (-) cough Objective: Allergies: TRAMADOL Medications: Active and Recently [...] EVERY MORNING TO LOWER BLOOD PRESSURE 8) INSULIN,GLARG(TOUJEO MAX) 300 UNT/ML 3ML INJECT 90 ACTIVE UNITS UNDER THE SKIN ONCE A DAY FOR DIABETES ADMINISTER AT SAME TIME EACH DAY DIRECTED. DISCARD ANY OPEN CARTRIDGE AFTER 42 DAYS. *HIGH DOSE INSULIN* 9) LIDOCAINE 5% PATCH APPLY 1 PATCH TO SKIN SITE ONCE A ACTIVE DAY NEEDED FOR LOCAL ANESTHESIA APPLY PATCH AND PRESS FIRMLY FOR 10-15 SECONDS. KEEP ON FOR 12 HOURS THEN REMOVE PATCH FOR 12 HOURS. 10) MELOXICAM 7.5MG TAB TAKE ONE TABLET BY MOUTH ONCE A ACTIVE DAY NEEDED FOR OSTEOARTHRITIS 11) METFORMIN HCL 500MG 24HR SA TAB TAKE TWO TABLETS BY ACTIVE MOUTH TWICE A DAY FOR BLOOD SUGAR CONTROL. TAKE WITH FOOD. AVOID ALCOHOL. DISCONTINUE BEFORE GETTING XRAY DYE. 12) METHOCARBAMOL 500MG TAB TAKE 1 TABLET BY MOUTH TWICE ACTIVE DAILY NEEDED FOR MUSCLE SPASM 13) MULTIVITAMIN CAP/TAB TAKE 1 TABLET BY [...] ACTIVE THE SKIN EVERY WEEK FOR DIABETES *tu/wed if he forgets Inactive Outpatient Medications Status 1) INSULIN,ASPART(EQV-NOVLG)100 UN/ML FLXPEN INJECT 6 UNITS UNDER THE SKIN ONCE A DAY BEFORE DINNER FOR DIABETES ADMINISTER 10 MINUTES BEFORE FOOD DIRECTED. REFRIGERATE UN-OPENED PENS. DISCARD CARTRIDGE 28 DAYS AFTER OPENING. has plenty at home Active Non-VA Medications Status 1) Non-VA NAPROXEN NA 220MG TAB 220MG BY MOUTH ACTIVE NEEDED knows to not take with meloxicam, meds: OTC/Non-VA meds: none Medication reconciliation completed: YES Adherence to above medications: yes per pt I got back on track Refills/renewals needed: Labs: CMP: SODIUM 138 mEq/L 03/22/2023 12:00 POTASSIUM 4.2 mEq/L 03/22/2023 12:00 CHLORIDE 105 mEq/L 03/22/2023 12:00 UREA NITROGEN 16 mg/dL 03/22/2023 12:00 CREATININE 0.83 mg/dL 03/22/2023 12:00 CALCIUM 9.5 mg/dL 03/22/2023 12:00 PROTEIN 7.7 g/dL 03/22/2023 12:00 ALBUMIN 4.2 g/dL 03/22/2023 12:00 ALKALINE PHOSPHATASE 84 U/L 03/22/2023 12:00 ALT/SGPT 46 H U/L 03/22/2023 12:00 AST/SGOT 66 H U/L 03/22/2023 12:00 TOTAL BILIRUBIN 0.6 mg/dL 03/22/2023 12:00 CARBON DIOXIDE 23 mEq/L 03/22/2023 12:00 GLUCOSE 123 H mg/dL 03/22/2023 12:00 EGFR (CKD-EPI 2020) 94.2 03/22/2023 12:00 Estimated CrCl mL/min FLP: TRIGLYCERIDE 140 mg/dL 03/22/2023 12:00 CHOLESTEROL 196 mg/dL 03/22/2023 12:00 HDL(New) 31 L mg/dL 03/22/2023 12:00 CALCULATED LDL 137 mg/dL 03/22/2023 12:00 MICRAL/CR PROFILE: CREATuF: 341.9 (03/22/23 12:00) M/CREAT: 23 (03/22/23 12:00) MICRAL: 77.4 (03/22/23 12:00) A1c: HGA1C 8.8 H % 11/11/2023 10:38 TSH: No TSH (1YR) EO data found Vitamin D: No VITAMIN D 25 HYDROXY EO data found Self-Monitoring of Blood Glucose (SMBG): [employer] Personal - Glucose Pattern Summary 14 days 14 day info Avg Glucose: 165 12am-6am 182 6am-12pm 145 12pm-6pm 158 6pm-12am 177 Time in Range: Above 180 mg/dL: 32% In Target Range (70-180 mg/dL): 68% Below 70 mg/dL: 0% Sensor Usage: 97 % Daily scans: 53 low glucose events total 0 12am-6am 6am-12pm [...] 54 mg/dL: NONE %CV <=36% BP last visit:156/75 (02/10/2024 11:09) Pulse last visit: 66 (02/10/2024 11:09) Manual BP seated, rested: 130/68 mmHg Pulse: 84 bpm Assessment/Plan: 1) Diabetes Goal A1c <7-8%, FBG 80-130, post-prandial BG <180, per VA/DoD guidelines --Uncontrolled per a1c due to past non compliance. Taking DM meds now. Started CGM and #s improved since starting. Average close improved, TIR close to goal, no lows. Pt reports making changes when sees it high, and learning. Denies ADRs to meds, GFR WNL, CCT. A1c next month --Continue metformin SA 500mg 2 tabs BID --Continue semaglutide 1mg once a week. --Continue Toujeo 300 units/ml 90 units daily --Continue aspart 6 units before dinner. --Instructed vet to check SMBGs using jennifer --Educated vet on hypoglycemia symptoms and appropriate treatment and when to call clinic or go to emergency room. Call for lows <70. --Instructed vet to check SMBGs --Educated vet on hypoglycemia symptoms and appropriate treatment and when to call clinic or go to emergency room. Call for lows <70. 2) Lipids - Goal is treatment with moderate-intensity statin per VADoD guidelines; moderate to high-intensity statin per ACC/AHA guidelines. --CCT 3) HTN - <130/80 mmHg per 2017 AHA guidelines; <140/90 >60 + DM per VADoD guidelines. --Controlled, CCT - Instructed vet to call CP [...] management/dietary/physical activity) specific for the vet's needs. -[place] verbalized understanding to all plans discussed today. Questions were answered to vet's satisfaction. Time spent with vet: 30 minutes Additional time spent reviewing chart/documentation: 5 min RTC: 1 month (Pt advised to stop at front end web designer to schedule follow up appointment) HTN Assess for Elevated BP>=140/90: Repeat blood pressure: 130/68 Other Reason: at goal Medication Reconciliation Opt STL: I have reviewed the patient's medication list (including active outpatient prescriptions dispensed from this VA (local) and dispensed from another VA or DoD facility (remote) as well as inpatient orders (local pending and active), local clinic medications, locally documented non-VA medications, and local prescriptions that have or been discontinued in the past 90 days.) with the patient and/or his/her care-associate juvenile court judge. Handwritten corrections, additions and/or deletions were made to the list, as appropriate. Corrected Outpatient Medication List was provided to the patient/caregiver. PBM PharmD Pharmacotherapy Rem V12: PHARMACIST INTERVENTIONS: HYPERTENSION Medication monitoring, no dosage change required, continue to monitor and assess LIPID MANAGEMENT Medication monitoring, no dosage change required, continue to monitor and assess TYPE 2 DIABETES MELLITUS Medication monitoring, no dosage change required, continue to monitor and assess Medication reconciliation (changes to active VA and non-VA medication lists to reconcile differences) No changes to medication lists made (medication review completed, no discrepancies identified) /shen/ REED COLLADO PHARM.D., [facility] CLINICAL PHARMACIST Signed: 02/17/2024 12:13 REED COLLADO [facility]
--- OUTSIDE RECORDS SUMMARY | 2024-11-17 03:48 | XMS_ITS | Encounter Summary ---
Author Name [facility] [place] Organization [facility] [place] Address [address] [place] [address] Care Team Providers Care Survey Analyst Name Role Phone MANUEL BAIRD Primary Care [...] PART A Apr 08, 2017 PART A [id number] ASHLEY WALKER PATIENT Selected Encounter This section includes the information on record at [place] for the Encounter. Date/Time Encounter Type Encounter Description Reason Provider Source Jan 03, 2024 09:00 AM ACUPUNCT W/O STIMUL 15 MIN CIH TREATMENT ICD-10-CM M54.50 Low back pain, unspecified ZANDER FINE Encounter Template Text not used by [place] Assessments - Encounter Diagnoses This section includes the primary and secondary diagnoses documented for the Encounter. Date/Time Primary/Secondary Diagnosis Diagnosis Name Provider Source Jan 03, 2024 09:30 AM PRIMARY Low back pain, unspecified ZANDER FINE [facility] Plan of Treatment: Future Appointments (+ 6 months) and Future Tests (+/- 45 days) The Plan of Treatment section includes future care activities for the patient from all [place] [facility] This section includes future appointments and future orders which are active, pending or scheduled. Future Appointments This section includes appointments that were scheduled to occur 6 months from the date of the Encounter, up to a maximum of 20 appointments. The data comes from all [facility]. Appointment Date/Time Appointment Type Appointme nt Facility Name Jan 24, 2024 08:30 AM AMBULATORY - NONE [place] [facility] Jan 24, 2024 11:30 AM AMBULATORY - MEDICINE [facility] Jan 26, 2024 11:30 AM AMBULATORY - SURGERY [facility] Feb 02, 2024 10:15 AM AMBULATORY - MEDICINE [facility] Feb 07, 2024 10:00 AM AMBULATORY - NONE [facility] [facility] Feb 10, 2024 11:00 AM AMBULATORY - MEDICINE [facility] Feb 11, 2024 11:00 AM AMBULATORY - MEDICINE [facility] Feb 17, 2024 11:30 AM AMBULATORY - MEDICINE [facility] Feb 21, 2024 10:00 AM AMBULATORY - NONE [facility] [facility] Feb 28, 2024 01:30 PM [facility] Feb 29, 2024 09:00 AM [facility]ONE [facility] Mar 06, 2024 09:00 AM AMBULATORY - NONE [facility] [facility] Mar 06, 2024 11:00 AM AMBULATORY - REHAB MEDICIN [facility] March 15, 2024 09:00 AM AMBULATORY - NONE [facility] March 16, 2024 09:30 AM AMBULATORY - MEDICINE [facility] March 20, 2024 09:30 AM AMBULATORY - MEDICINE [facility] March 21, 2024 09:30 AM AM[facility]UL[facility] March 27, 2024 08:30 AM [facility]ORY - NONE [place] [facility] March 28, 2024 10:00 AM AMBULATORY - REHAB MEDICIN [facility] April 04, 2024 09:30 AM AMBULATORY - REHAB MEDICIN [facility] Active, Pending, and Scheduled Orders This [...] FIT X1 SCREEN STOOL FECES SP [facility] Advance Directives: All historical and current Section [...] 2017 ADVANCE DIRECTIVE DISCUSSION ERICK BARDALES [facility] Encounter Notes: All associated encounter notes This section contains the clinical notes associated to the Encounter. Date/Time Encounter Note(s) Provider Source Jan 03, 2024 09:29 AM [facility]TEGRATIVE HEALTH NOTE: LOCAL TITLE: [place] ACUPUNCTURE NOTE STANDARD TITLE: [facility]ATIVE [facility]ALTH NOTE DATE OF NOTE: JAN 03, 2024@09:29 ENTRY DATE: JAN 03, 2024@09:29:45 AUTHOR: ZANDER FINE COSIGNER: URGENCY: STATUS: COMPLETED Follow up visit [place] Acupuncture/[place] Acupressure was the only treatment given. Patient was evaluated and agreed to receive [place] Acupuncture (BFA). Patient was evaluated and agreed to receive [place] Acupuncture Protocol (BFA)/[place] Acupressure (BAA) for the following pain condition(s): [...] Rating Scale: number from 0-10: 7 Standard [id number] time for application of BFA/BAA protocol is [...] tape that holds the needle in place. -[place] must be placed in a sharps container [...] your condition worsen. /shen/ ZANDER FINE, MSN, VICE PRESIDENT BUSINESS DEVELOPMENT, MANAGER INTERVENTIONAL-C, DipACLM //[facility] NURSE PRACTITIONER Signed: 01/03/2024 09:30 ZANDER FINE [facility]
--- OUTSIDE RECORDS SUMMARY | 2024-11-17 03:48 | XMS_ITS | Encounter Summary ---
Author Name Department of [place] Address [address] [place] [address] Care Team Providers Care [employer] Maintenance Worker Name Role Phone MANUEL BAIRD Primary [...] PART A Apr 08, 2017 PART A [id number] ASHLEY WALKER PATIENT Selected Encounter This section includes the information on record at [place] for the Encounter. Date/Time Encounter Type Encounter Description Reason Provider Source Feb 01, 2024 01:59 PM Outpatient Encounter PRIMARY CARE/MEDICINE FABRICIO CAMEJO Encounter Template Text not used by [place] Plan of Treatment: Future Appointments (+ 6 [...] The data comes from all [place] treatment [facility]. Appointment Date/Time Appointment Type Appointme nt Facility Name Feb 02, 2024 10:15 AM AMBULATORY - MEDICINE [facility] Feb 07, 2024 10:00 AM AM[facility]ULATORY - NONE [place] [facility] Feb 10, 2024 11:00 AM AMBULATORY - MEDICINE [facility] Feb 11, 2024 11:00 AM AMBULATORY - MEDICINE [facility] Feb 17, 2024 11:30 AM AMBULATORY - MEDICINE [facility] Feb 21, 2024 10:00 AM AMBULATORY - NONE [place] [facility] Feb 28, 2024 01:30 PM [facility] Feb 29, 2024 09:00 AM AMBULATORY - NONE [facility] Mar 06, 2024 09:00 AM AMBULATORY - NONE [place] [facility] Mar 06, 2024 11:00 AM [facility] March 15, 2024 09:00 AM AMBULATORY - NONE [facility] March 16, 2024 09:30 AM AMBULATORY - MEDICINE [facility] March 20, 2024 09:30 AM AMBULATORY - MEDICINE [facility] March 21, 2024 09:30 AM [facility] March 27, 2024 08:30 AM AMBULATORY - NONE [place] [facility] March 28, 2024 10:00 AM AMBULATORY - REHAB [facility]IN [facility] April 04, 2024 09:30 [facility] April 07, 2024 10:15 AM AMBULATORY - MEDICINE [facility] Apr 11, 2024 09:30 AM [facility] Apr 18, 2024 02:00 PM AMBULATORY - NONE [facility] Active, Pending, and Scheduled Orders [...] BLOOD FIT X1 SCREEN STOOL FECES SP [facility] Social History: Smoking Status (Most current) and [...] 10:34 AM QUIT TOBACCO >7 YEARS AGO [facility] Tobacco Use History This section includes a history of the smoking, or tobacco-related health factors, that were collected on or before the date of the Encounter. The data comes from the [place] facility where the Encounter took place. Date/Time Smoking Status/Tobacco Use Comment F acility Sep 30, 2015 10:12 AM QUIT TOBACCO >7 YEARS AGO [facility] Oct 29, 2014 10:23 AM QUIT TOBACCO >7 YEARS AGO [facility] Dec 27, 2013 01:27 PM QUIT TOBACCO >7 YEARS AGO [facility] Feb 24, 2013 02:01 PM LIFETIME NON-USER OF TOBACCO [facility] Feb 11, 2009 10:09 AM QUIT TOBACCO >7 YEARS AGO [facility] Oct 06, 2006 09:30 AM CURRENT NON-TOBACC O USER-HX OF USE [facility] Oct 06, 2006 09:30 AM TOBACCO TERMINATION STAGE [facility] Advance Directives: All historical and current [...] 2017 ADVANCE DIRECTIVE DISCUSSION ERICK BARDALES [facility] Encounter Notes: All associated encounter notes This section contains the clinical notes associated to the Encounter. Date/Time Encounter Note(s) Provider Source Feb 01, 2024 01:59 PM NURSING NOTE: LOCAL TITLE: V15 PACT TELEPHONE CONTACT NOTE [facility] TITLE: NURSING NOTE DATE OF NOTE: FEB 01, 2024@13:59 ENTRY DATE: FEB 01, 2024@13:59:47 AUTHOR: FABRICIO CAMEJO EXP COSIGNER: URGENCY: STATUS: COMPLETED Patient/Other contacted: Patient Patient Identifiers : Full Name Date of Appointment Reminder: Outbound call to patient to remind of upcoming: Provider in-person with Dr. Baird Appointment is scheduled for: Jan@10:15 Appointment type: In-person, instructed to: Write down [...] appointment. Provided/reviewed the nurse advice line (ext [phone]) for medical needs after hours. Contact understanding verified by teach back: Yes Total time spent on phone: 5 minutes /shen/ FABRICIO CAMEJO LPN LICENSED PRACTICAL NURSE Signed: 02/01/2024 14:01 FABRICIO CAMEJO [facility]
--- OUTSIDE RECORDS SUMMARY | 2024-11-17 03:48 | XMS_ITS | Encounter Summary ---
Author Name [facility] [place] Organization [place] Address [address] [place] [address] Care Team Providers Care School Community Relations Coordinator Name Role Phone MANUEL BAIRD Primary [...] PART A Apr 08, 2017 PART A [id number] ASHLEY WALKER PATIENT Selected Encounter This section includes the information on record at [place] for the Encounter. Date/Time Encounter Type Encounter Description Reason Provider Source Feb 10, 2024 11:00 AM PULMONARY STRESS TESTING PULMONARY FUNCTION ICD-10-CM R06.00 Dyspnea, unspecified VEDA JONES Encounter Template Text not used by [place] Assessments - Encounter Diagnoses This section includes the primary and secondary diagnoses documented for the Encounter. Date/Time Primary/Secondary Diagnosis Diagnosis Name Provider Source Feb 10, 2024 11:41 AM PRIMARY Dyspnea, unspecified VEDA JONES [facility] Plan of Treatment: Future Appointments (+ 6 months) and Future Tests (+/- 45 days) The Plan of Treatment section includes future care activities for the patient from all [place] [facility] This section includes future appointments and future orders which are active, pending or scheduled. Future Appointments This section includes appointments that were scheduled to occur 6 months from the date of the Encounter, up to a maximum of 20 appointments. The data comes from all [facility]. Appointment Date/Time Appointment Type Appointme nt Facility Name Feb 11, 2024 11:00 AM AMBULATORY - MEDICINE [facility] Feb 17, 2024 11:30 AM AMBULATORY - MEDICINE [facility] Feb 21, 2024 10:00 AM AMBULATORY - NONE [facility] Feb 28, 2024 01:30 PM [facility] Feb 29, 2024 09:00 AM AMBULATORY - NONE [facility] Mar 06, 2024 09:00 AM AMBULATORY - NONE [facility] [facility] Mar 06, 2024 11:00 AM AMBULATORY - REHAB MEDICIN [facility] March 15, 2024 09:00 AM AMBULATORY - NONE [facility] March 16, 2024 09:30 AM AMBULATORY - MEDICINE [facility] March 20, 2024 09:30 AM AMBULATORY - MEDICINE [facility] March 21, 2024 09:30 [facility] March 27, 2024 08:30 AM [facility] - N[facility] [place] [facility] March 28, 2024 10:00 AM AMBULATORY - REHAB MEDICIN [facility] April 04, 2024 09:30 AM AMBULATORY - [facility]AB [facility]ICIN [facility] April 07, 2024 10:15 AM AMBULATORY - MEDICINE [facility] Apr 11, 2024 09:30 AM AMBULATORY - REHAB MEDICIN [facility] Apr 18, 2024 02:00 PM AMBULATORY - NONE [facility] Apr 20, 2024 10:30 AM AMBULATORY - REHAB MEDICIN [facility] Apr 21, 2024 11:00 AM AMBULATORY - MEDICINE [facility] 2024 10:00 AM AMBULATORY - MEDICINE [facility] Active, Pending, and Scheduled Orders This section [...] STOOL FECES SP [facility] March 20, 2024 12:36 PM Consult Order [facility] DENTAL SPEC Cons Rac Specialist's Choice [facility] Lab Results: +/- 30 days of the encounter This section includes the Chemistry and Hematology Lab Results on record with [place] for the patient. Radiology Reports and Pathology Reports are provided separately, in subsequent sections. Lab Results This section contains the Chemistry/Hematology Results that were resulted 30 days before or 30 daysafter the date of the Encounter. Date/Time Source Result Type Result - Unit Interpretation Reference Range Comment Mar 06, 2024 10:03 AM [facility] MICRAL/CREAT PROFILE (STL) Specimen Type: URINE No comment entered. Ordering Provider: MANUEL BAIRD Report Released Date/Time: Mar 06, 2024 09:47 AM Reporting Lab: [address] [address] Performing Lab: [place] [id number] [facility] [address] URINE ALBUMIN (PB-STL) 114.8 mg/L uACR (STL) 59 mg/g H 0-29 CREATININE URINE/OTHERS 193.6 mg/dL H 63-166 Mar 06, 2024 09:52 AM [facility] HGA1C Specimen Type: BLOOD No comment entered. Ordering Provider: MANUEL BAIRD Report Released Date/Time: Mar 06, 2024 09:47 AM Reporting Lab: [address] [address] Performing Lab: [address] [place] [address] HGA1C 7.0 H 4.0-6.0 Mar 06, 2024 09:52 AM [facility] PROST. SPECIFIC AG.(PB-STL) Specimen Type: SERUM Comment: The listed sex of this patient may not be a typical indication for this test. Therefore, reference ranges or interpretive criteria listed may not be valid. Clinical correlation suggested. Ordering Provider: MANUEL BAIRD Report Released Date/Time: Mar 06, 2024 09:47 AM Reporting Lab: [facility] [address] [facility] [address] Performing Lab: [address] [address] PROST. SPECIFIC AG.(PB-STL) 0.919 ng/mL 0-4 Mar 06, 2024 09:52 AM [facility] LIPID PANEL (STL) Specimen Type: PLASMA Comment: No hemolysis noted. Ordering Provider: MANUEL BAIRD Report Released Date/Time: Mar 06, 2024 09:47 AM Reporting Lab: [address] [address] Performing Lab: [address] [address] CHOLESTEROL 161 mg/dL 0-200 TRIGLYCERIDE 119 mg/dL 0-150 CALCULATED LDL 107 mg/dL HDL(New) 30 mg/dL L >40 Mar 06, 2024 09:52 AM [facility] COMPREHENSIVE METABOLIC PANEL Specimen Type: PLASMA Comment: No hemolysis noted. Ordering Provider: MANUEL BAIRD Report Released Date/Time: Mar 06, 2024 09:47 AM Reporting Lab: [address] [address] Performing Lab: [address] [address] CREATININE 0.87 mg/dL 0.7-1.3 UREA NITROGEN 14.7 [...] Mar 06, 2024 09:52 AM [facility] TSH (MA-PB) Specimen Type: SERUM Comment: The listed sex of this patient may not be a typical indication for this test. Therefore, reference ranges or interpretive criteria listed may not be valid. Clinical correlation suggested. Ordering Provider: MANUEL BAIRD Report Released Date/Time: Mar 06, 2024 09:47 AM Reporting Lab: [address] [address] Performing Lab: [address] [address] TSH 2.984 u[IU]/mL 0.47-5 Mar 06, 2024 09:52 AM [facility] CBC Specimen Type: BLOOD No comment entered. Ordering Provider: MANUEL BAIRD Report Released Date/Time: Mar 06, 2024 09:47 AM Reporting Lab: [address] [address] Performing Lab: [address] [address] WBC 4.4 10*3/uL 3.6-11.2 RBC 5.19 10*6/uL [...] Height Weight Body Mass Index Source Feb 10, 2024 11:09 AM 97.4 66 156/75 24 97 0 228.9 33 [facility] Social History: Smoking Status (Most current) and Tobacco Use (All prior to encounter date) This section includes the most current, and the historical, smoking and tobacco- related health factors from the [place] facility where the Encounter took place. Current Smoking Status This section includes the most current smoking, or tobacco-related health factor, from the [place] facility where the Encounter took place. Date/Time Current Smoking Status Comment Radhika goins Aug 11, 2016 10:34 AM QUIT TOBACCO >7 YEARS AGO [facility] Tobacco Use History This section includes a history of the smoking, or tobacco-related health factors, that were collected on or before the date of the Encounter. The data comes from the [place] facility where the Encounter took place. Date/Time Smoking Status/Tobacco Use Comment Juan acmichael Sep 30, 2015 10:12 AM QUIT TOBACCO >7 YEARS AGO [facility] Oct 29, 2014 10:23 AM QUIT TOBACCO >7 YEARS AGO [facility] Dec 27, 2013 01:27 PM QUIT TOBACCO >7 YEARS AGO [facility] Feb 24, 2013 02:01 PM LIFETIME NON-USER OF TOBACCO [facility] Feb 11, 2009 10:09 AM QUIT TOBACCO >7 YEARS AGO [facility] Oct 06, 2006 09:30 AM CURRENT NON-TOBACC O USER-HX OF USE [facility] Oct 06, 2006 09:30 AM TOBACCO TERMINATION STAGE [facility] Advance Directives: All historical and current Section Date Range: From patient's date of to the date document was created. This section includes ALL of a patient's completed or amended [place] Advance and Rescinded Directives. The entries below indicate that a directive exists for the patient, but an actual copy is not included with this document. The data comes from all [place] facilities. Date Advance Directives Provider Source Jan 19, 2017 ADVANCE DIRECTIVE DISCUSSION ERICK BARDALES [facility] Encounter Notes: All associated encounter notes This section contains the clinical notes associated to the Encounter. Date/Time Encounter Note(s) Provider Source Feb 11, 2024 04:36 PM PULMONARY PROCEDUR E NOTE: LOCAL TITLE: PFT PROCEDURE REPORT STL STANDARD TITLE: PULMONARY PROCEDURE NOTE DATE OF NOTE: FEB 11, 2024@16:36:54 ENTRY DATE: FEB 11, 2024@16:36:54 AUTHOR: CLINICAL,DEVICE PRO EXP COSIGNER: URGENCY: STATUS: COMPLETED PROCEDURE SUMMARY CODE: Machine Resulted DATE/TIME PERFORMED: FEB 11, 2024@16:36:3 DOCUMENT IN VISTA IMAGING SEE FULL REPORT IN VISTA IMAGING SIGNATURE NOT REQUIRED SEE SIGNATURE IN VISTA IMAGING (reQwip) AUTO-INSTRUMENT DIAGNOSIS Procedure: PFT Administrative Closure: 02/11/2024 by: CLINICAL,DEVICE PROXY SERVICE CLINICAL,DEVICE PROXY SERVICE [facility] Feb 10, 2024 11:42 AM RESPIRATORY THERAP Y NOTE: LOCAL TITLE: RESPIRATORY THERAPY STL STANDARD TITLE: RESPIRATORY THERAPY NOTE DATE OF NOTE: FEB 10, 2024@11:42 ENTRY DATE: FEB 10, 2024@11:42:16 AUTHOR: VEDA JONES EXP COSIGNER: URGENCY: STATUS: COMPLETED Home Oxygen Assessment Time of Procedure: 1135 Resting Room Air Sats: 97% Ambulation oxygen saturation and heart rate on room air: 1 minute 97%02 SAT 57HR 2 minutes 96%02 SAT 61HR 3 minutes 95%02 SAT 74HR 4 minutes 96%02 SAT 70HR 5 minutes 96%02 SAT 73HR 6 minutes 96%02 SAT 77HR Resting Oxygen Saturation on: LPM % Ambulation oxygen saturation and heart rate on: LPM 1 minute %02 SAT HR 2 minutes %02 SAT HR 3 minutes %02 SAT HR 4 minutes %02 SAT HR 5 minutes %02 SAT HR 6 minutes %02 SAT HR RECOMMENDATION Patient requires 0 liters to attain 97%Oxygen saturation at rest 0 liters during exercise to attain 95%Oxygen saturation Patient Smokes?................. ........................ ....NO pt walked 750 ft on ra highest hr 77 lowest spo2 95% /shen/ VEDA JONES REGISTERED RESPIRATORY THERAPIST Signed: 02/10/2024 11:44 Receipt Acknowledged By: 02/10/2024 11:45 /shen/ Natalie Zepeda INSTRUMENT ENGINEER Home Oxygen Coordinator VEDA JONES [facility] Feb 10, 2024 11:40 AM PULMONARY NOTE: LOCAL TITLE: PFT LAB COVID-19 SCREENING [facility] STANDARD TITLE: PULMONARY NOTE DATE OF NOTE: FEB 10, 2024@11:40 ENTRY DATE: FEB 10, 2024@11:40:41 AUTHOR: VEDA JONES EXP COSIGNER: URGENCY: STATUS: COMPLETED 1) Have you experienced any of the symptoms of COVID-19 in past 48 hours? Fever or Chills: No Cough: No Sore Throat: No Shortness of breath or difficulty breathing (more than your usual baseline): No Fatigue: No Muscle or body aches: No Headache: No New loss of taste or smell: No Congestion or runny nose: No Nausea or vomiting: No Diarrhea: No 2) Are you currently isolating or quarantining because you tested positive for COVID-19 or are you worried you may be sick with COVID-19? No Comments: /camryn JONES REGISTERED RESPIRATORY THERAPIST Signed: 02/10/2024 11:41 VEAD JONES [facility]
--- OUTSIDE RECORDS SUMMARY | 2024-11-17 03:48 | XMS_ITS | Encounter Summary ---
Author Name [facility] [place] Organization [place] Address [address] [place] [address] Care Team Providers Care Blade Balancer Name Role Phone MANUEL THOMAS Primary Care [...] PART A Apr 08, 2017 PART A [id number] [phone] ASHLEY WALKER PATIENT Selected Encounter This section includes the information on record at [place] for the Encounter. Date/Time Encounter Type Encounter Description Reason Provider Source Feb 14, 2024 02:55 PM Outpatient Encounter TELEPHONE PRIMARY CARE CHARITY HALL Encounter Template Text not used by DC Plan of Treatment: Future Appointments (+ 6 [...] 20 appointments. The data comes from all [place] treatment facilities. Appointment Date/Time Appointment Type Appointme nt Facility Name Feb 17, 2024 11:30 AM AMBULATORY - MEDICINE [facility] Feb 21, 2024 10:00 AM AMBULATORY - NONE [facility] Feb 28, 2024 01:30 PM AMBULATORY - REHAB MEDICIN E [facility] Feb 29, 2024 09:00 AM AMBULATORY - NONE [facility] Mar 06, 2024 09:00 AM [facility]UL[facility]ORY - NONE [facility] Mar 06, 2024 11:00 AM AMBULATORY - REHAB MEDICIN E [facility] March 15, 2024 09:00 AM AMBULATORY - NONE [facility] March 16, 2024 09:30 AM AMBULATORY - MEDICINE [facility] March 20, 2024 09:30 AM AMBULATORY - MEDICINE [facility] March 21, 2024 09:30 AM AMBULATORY - REHAB MED[facility]IN [facility] March 27, 2024 08:30 AM [facility]UL[facility]ORY - NONE [facility] March 28, 2024 10:00 AM AMBULATORY - REHAB MEDICIN [facility] April 04, 2024 09:30 [facility] 07, 2024 10:15 AM AMBULATORY - MEDICINE [facility] Apr 11, 2024 09:30 AM AMBULATORY - REHAB MEDICIN [facility] Apr 18, 2024 02:00 PM AMBULATORY - NONE [facility] Apr 20, 2024 10:30 AM AMBULATORY - REHAB MEDICIN [facility] Apr 21, 2024 11:00 AM AMBULATORY - MEDICINE [facility] 2024 10:00 AM AMBULATORY - MEDICINE [facility] May 02, 2024 10:00 AM AMBULATORY - SURGERY [facility] Active, Pending, and Scheduled Orders This section includes a listing of several types of active, pending, and scheduled orders, including clinic medications orders, diagnostic test orders, procedure orders and consult orders; where the start date of the order is 45 days before the date of the Encounter or 45 days after the date of theEncounter. The data comes from all [place] treatment facilities. Test Date/Time Test Type Test Details Facility Name Feb 02, 2024 12:00 AM Laboratory - Chemi stry Order OCCULT BLOOD FIT X1 SCREEN STOOL FECES SP [facility] March 20, 2024 12:36 PM Consult Order COMMUNITY CARE-STL DENTAL SPEC Cons Waiter's Choice [facility] Lab Results: +/- 30 days of the encounter This section includes the Chemistry and Hematology Lab Results on record with [place] for the patient. Radiology Reports and Pathology Reports are provided separately, in subsequent sections. Lab Results This section contains the Chemistry/Hematology Results that were resulted 30 days before or 30 daysafter the date of the Encounter. Date/Time Source Result Type Result - Unit Interpretation Reference Range Comment Mar 06, 2024 10:03 AM [facility] MICRAL/CREAT PROFILE (STL) Specimen Type: URINE No comment entered. Ordering Provider: MANUEL THOMAS Report Released Date/Time: Mar 06, 2024 09:47 AM Reporting Lab: [facility] [address] [place] [address] Performing Lab: [address] [address] URINE ALBUMIN (PB-STL) 114.8 mg/L uACR (STL) 59 mg/g H 0-29 CREATININE URINE/OTHERS 193.6 mg/dL H 63-166 Mar 06, 2024 09:52 AM [facility] HGA1C Specimen Type: BLOOD No comment entered. Ordering Provider: MANUEL THOMAS Report Released Date/Time: Mar 06, 2024 09:47 AM Reporting Lab: [facility] [address] [place] [id number] Performing Lab: [address] [address] HGA1C 7.0 H 4.0-6.0 Mar 06, 2024 09:52 AM [facility] LIPID PANEL (STL) Specimen Type: PLASMA Comment: No hemolysis noted. Ordering Provider: MANUEL THOMAS Report Released Date/Time: Mar 06, 2024 09:47 AM Reporting Lab: [address] [address] Performing Lab: [address] [address] CHOLESTEROL 161 mg/dL 0-200 TRIGLYCERIDE 119 mg/dL 0-150 CALCULATED LDL 107 mg/dL HDL(New) 30 mg/dL L >40 Mar 06, 2024 09:52 AM [facility] PROST. SPECIFIC AG.(PB-STL) Specimen Type: SERUM Comment: The listed sex of this patient may not be a typical indication for this test. Therefore, reference ranges or interpretive criteria listed may not be valid. Clinical correlation suggested. Ordering Provider: MANUEL THOMAS Report Released Date/Time: Mar 06, 2024 09:47 AM Reporting Lab: [address] [address] Performing Lab: [address] [address] PROST. SPECIFIC AG.(PB-STL) 0.919 ng/mL 0-4 Mar 06, 2024 09:52 AM [facility] COMPREHENSIVE METABOLIC PANEL Specimen Type: PLASMA Comment: No hemolysis noted. Ordering Provider: MANUEL THOMAS Report Released Date/Time: Mar 06, 2024 09:47 AM Reporting Lab: [address] [address] Performing Lab: [address] [address] CREATININE 0.87 mg/dL 0.7-1.3 UREA NITROGEN 14.7 [...] >60 Mar 06, 2024 09:52 AM [facility] TSH (MA-PB) Specimen Type: SERUM Comment: The listed sex of this patient may not be a typical indication for this test. Therefore, reference ranges or interpretive criteria listed may not be valid. Clinical correlation suggested. Ordering Provider: MANUEL THOMAS Report Released Date/Time: Mar 06, 2024 09:47 AM Reporting Lab: [facility] [address] [place] [address] Performing Lab: [facility] [address] [address] TSH 2.984 u[IU]/mL 0.47-5 Mar 06, 2024 09:52 AM [facility] CBC Specimen Type: BLOOD No comment entered. Ordering Provider: MANUEL THOMAS Report Released Date/Time: Mar 06, 2024 09:47 AM Reporting Lab: [facility] [address] [address] Performing Lab: [facility] [address] [address] WBC 4.4 10*3/uL 3.6-11.2 RBC 5.19 10*6/uL [...] and tobacco- related health factors from the [place] facility where the Encounter took place. Current Smoking Status This section includes the most current smoking, or tobacco-related health factor, from the [place] facility where the Encounter took place. Date/Time Current Smoking Status Comment Radhika ity Aug 11, 2016 10:34 AM QUIT TOBACCO >7 YEARS AGO [facility] Tobacco Use History This section includes a history of the smoking, or tobacco-related health factors, that were collected on or before the date of the Encounter. The data comes from the [place] facility where the Encounter took place. Date/Time Smoking Status/Tobacco Use Comment F acility Sep 30, 2015 10:12 AM QUIT TOBACCO >7 YEARS AGO [facility] Oct 29, 2014 10:23 AM QUIT TOBACCO [...] ALL of a patient's completed or amended [place] Advance and Rescinded Directives. The entries below indicate that a directive exists for the patient, but an actual copy is not included with this document. The data comes from all [facility]. Date Advance Directives Provider Source Jan 19, 2017 ADVANCE DIRECTIVE DISCUSSION ERICK BARDALES [facility] Radiology Reports: +/- 30 days of [...] the Encounter. The data comes from all [place] treatment facilities. Date/Time Radiology Report Provider Source March 15, 2024 08:01 AM US ABDOMEN COMPLET E W/BLOOD FLOW DOPPLER (STL): CHET WALKER [id number] [phone] M Ex Date: MARCH 15, 2024@08:01 Req Phys: MANUEL THOMAS Loc: -MAN PACT STAR RES 4 (Req'g Img Loc: -ULTRASOUND Service: [facility] [address] [place] [address] (Case [id number] COMPLETE) US ABDOMEN COMPLETE REDUCE SERVIC(US Detailed) CPT:96073 CPT Modifiers : 52 REDUCED SERVICES Reason for Study: thrombocytopenia, please check liver and spleen. (Case [id number] COMPLETE) US BLOOD FLOW ABD/RENAL DOPPLER ((US Detailed) CPT:96949 Clinical History: Report Status: Verified Date Reported: MARCH 15, 2024 Date Verified: MARCH 15, 2024 Employment Agency Manager E-Sig:/ES/DILEEP LOWERY MD Report: US ABDOMEN COMPLETE REDUCE SERVICE, US BLOOD FLOW ABD/RENAL DOPPLER (COMPLETE) [id number], [id number] DATE: 03/15/2024 8:01 AM EXAM: ABDOMINAL ULTRASOUND [id number], [id number] HISTORY: thrombocytopenia, please check liver and spleen. [...] Interpreting Staff: DILEEP LOWERY MD, STAFF RADIOLOGIST (Employment Agency Manager) Primary Interpreting Resident: Flory Guzman MD, Resident Physician /DILEEP SALGUERO [facility] Encounter Notes: All associated encounter notes This section contains the clinical notes associated to the Encounter. Date/Time Encounter Note(s) Provider Source Feb 14, 2024 02:55 PM NURSING NOTE: LOCAL TITLE: V15 PACT TELEPHONE CONTACT NOTE ST STANDARD TITLE: NURSING NOTE DATE OF NOTE: FEB 14, 2024@14:55 ENTRY DATE: FEB 14, 2024@14:55:18 AUTHOR: CHARITY HALL EXP COSIGNER: URGENCY: STATUS: COMPLETED Patient/Other contacted: Patient [phone] Patient Identifiers : Full Name Date of Telephone Number Inbound call from patient: Consults: -Patient contacted following up from 02/14/24 contact Note Patient called in to follow up on compression socks. Patient seen for PCP visit 02/02/24- per 02/02/24 PCP established visit note- noted EXT: Mild 2+ pitting edema in bilateral lower extremities. No clubbing Patient reports that is when PCP mentioned compression socks and figured they would be ordered. will alert PCP for clarification as patient is diabetic and it is not mentioned in note Patient understanding verified by teach back:Yes Total time spent on phone: 8 For intervention, information forwarded to Aide HALL REGISTERED NURSE Signed: 02/14/2024 14:59 Receipt Acknowledged By: 02/14/2024 15:42 /camryn thomas M.D. Staff Physician 02/14/2024 15:47 /camryn thomas M.D. Staff Physician for CHARITY FRAUSTO MA [facility]
--- OUTSIDE RECORDS SUMMARY | 2024-11-17 03:48 | XMS_ITS | Encounter Summary ---
Author Name [facility] [place] Organization [facility] [place] Address [address] [place] [address] Care Team Providers Care Flag Maker Name Role Phone MANUEL BAIRD Primary Care [...] PART A Apr 08, 2017 PART A [id number] ASHLEY WALKER PATIENT Selected Encounter This section includes the information on record at [place] for the Encounter. Date/Time Encounter Type Encounter Description Reason Provider Source Jan 24, 2024 08:30 AM ACUPUNCT W/O STIMUL 15 MIN [facility] TREATMENT ICD-10-CM M54.50 Low back pain, unspecified ZANDER FINE Encounter Template Text not used by [place] Assessments - Encounter Diagnoses This section includes the primary and secondary diagnoses documented for the Encounter. Date/Time Primary/Secondary Diagnosis Diagnosis Name Provider Source Jan 24, 2024 10:31 AM PRIMARY Low back pain, unspecified ZANDER FINE [facility] Plan of Treatment: Future Appointments (+ 6 months) and Future Tests (+/- 45 days) The Plan of Treatment section includes future care activities for the patient from [facility] [place] [facility] This section includes future appointments and future orders which are active, pending or scheduled. Future Appointments This section includes appointments that were scheduled to occur 6 months from the date of the Encounter, up to a maximum of 20 appointments. The data comes from all [facility]. Appointment Date/Time Appointment Type Appointme nt Facility Name Jan 26, 2024 11:30 AM AMBULATORY - SURGERY [facility] Feb 02, 2024 10:15 AM AMBULATORY - MEDICINE [facility] Feb 07, 2024 10:00 AM AMBULATORY - NONE [facility] Feb 10, 2024 11:00 AM AMBULATORY - MEDICINE [facility] Feb 11, 2024 11:00 AM AMBULATORY - MEDICINE [facility] Feb 17, 2024 11:30 AM AMBULATORY - MEDICINE [facility] Feb 21, 2024 10:00 AM AMBULATORY - NONE [facility] Feb 28, 2024 01:30 PM AMBULATORY - REHAB MEDICIN E [facility] Feb 29, 2024 09:00 AM AMBULATORY - NONE [facility] Mar 06, 2024 09:00 AM AMBULATORY - NONE [facility] Mar 06, 2024 11:00 AM AMBULATORY - REHAB MEDICIN [facility] March 15, 2024 09:00 AM AMBULATORY - NONE [facility] March 16, 2024 09:30 AM AMBULATORY - MEDICINE [facility] March 20, 2024 09:30 AM AMBULATORY - MEDICINE [facility] March 21, 2024 09:30 AM AMBULATORY - REHAB MEDICIN E [facility] March 27, 2024 08:30 AM AMBULATORY - NONE [facility] March 28, 2024 10:00 AM AMBULATORY - REHAB MEDICIN E [facility] April 04, 2024 09:30 AM AMBULATORY - REHAB MEDICIN [facility] April 07, 2024 10:15 AM AMBULATORY - MEDICINE [facility] Apr 11, 2024 09:30 AM AMBULATORY - REHAB MEDICIN E [facility] Active, Pending, and Scheduled Orders This [...] BLOOD FIT X1 SCREEN STOOL FECES SP [facility] Advance Directives: All historical and current Section [...] DISCUSSION ERICK BARDALES [facility] Encounter Notes: All associated encounter notes This section contains the clinical notes associated to the Encounter. Date/Time Encounter Note(s) Provider Source Jan 24, 2024 10:31 AM [facility] NOTE: LOCAL TITLE: [place] ACUPUNCTURE NOTE STANDARD TITLE: [facility] NOTE DATE OF NOTE: JAN 24, 2024@10:31 ENTRY DATE: JAN 24, 2024@10:31:06 AUTHOR: ZANDER FINE EXP COSIGNER: URGENCY: STATUS: COMPLETED Follow up visit Worley Acupuncture/Worley Acupressure was the only treatment given. Patient was evaluated and agreed to receive [place] Acupuncture (BFA). Patient was evaluated and agreed to receive [place] Acupuncture Protocol (BFA)/W[place]ley Acupressure (BAA) for the following pain condition(s): [...] Rating Scale: number from 0-10: 5 Standard [id number] time for application of BFA/BAA protocol is [...] tape that holds the needle in place. -[place] must be placed in a sharps container [...] your condition worsen. /shen/ ZANDER FINE, MSN, COCOA MILLING MACHINE OPERATOR, CONSTRUCTION EQUIPMENT OPERATOR-C, DipACLM //[facility] NURSE PRACTITIONER Signed: 01/24/2024 10:32 ZANDER FINE [facility]
--- OUTSIDE RECORDS SUMMARY | 2024-11-17 03:48 | XMS_ITS | Encounter Summary ---
Author Name Department of [place] Organization [place] Address [address] [place] [address] Care Team Providers Care Power Transformer Repair Supervisor Name Role Phone MANUEL BAIRD Primary [...] PART A Apr 08, 2017 PART A [id number] [phone] ASHLEY WALKER PATIENT Selected Encounter This section includes the information on record at [place] for the Encounter. Date/Time Encounter Type Encounter Description Reason Provider Source Jan 26, 2024 11:30 AM OFFICE O/P EST LOW 20 MIN PODIATRY ICD-10-CM B35.1 Tinea unguiJUVENTINO Cuellar [facility]Nav Encounter Template Text not used by [place] Assessments - Encounter Diagnoses This section includes the primary and secondary diagnoses documented for the Encounter. Date/Time Primary/Secondary Diagnosis Diagnosis Name Provider Source Jan 26, 2024 12:06 PM PRIMARY Tinea duum [facility] Jan 26, 2024 12:06 PM SECONDARY Acquired clubfoot, right foot [facility] Jan 26, 2024 12:06 PM SECONDARY Congenital pes cavus, left foot [facility] Jan 26, 2024 12:06 PM SECONDARY Congenital pes cavus, right foot [facility] Jan 26, 2024 12:06 PM SECONDARY Inflamed seborrheic keratosis QI,[facility] Jan 26, 2024 12:06 PM SECONDARY Other hammer toe(s) (acquired), left foot [facility] Jan 26, 2024 12:06 PM SECONDARY Other hammer toe(s) (acquired), right foot [facility] Jan 26, 2024 12:06 PM SECONDARY Type 2 diabetes mellitus with diabetic neuropathy, unsp [facility] Plan of Treatment: Future Appointments (+ 6 months) and Future Tests (+/- 45 days) The Plan of Treatment section includes future care activities for the patient from all [place] [facility]. This section includes future appointments and future orders which are active, pending or scheduled. Future Appointments This section includes appointments that were scheduled to occur 6 months from the date of the Encounter, up to a maximum of 20 appointments. The data comes from all [place] treatment facilities. Appointment Date/Time Appointment Type Appointme nt Facility Name Feb 02, 2024 10:15 AM AMBULATORY - MEDICINE [facility] Feb 07, 2024 10:00 AM AMBULATORY - NONE [facility] Feb 10, 2024 11:00 AM AMBULATORY - MEDICINE [facility] Feb 11, 2024 11:00 AM AMBULATORY - MEDICINE [facility] Feb 17, 2024 11:30 AM AMBULATORY - MEDICINE [facility] Feb 21, 2024 10:00 AM AMBULATORY - NONE [facility] Feb 28, 2024 01:30 PM AMBULATORY - REHAB MEDICIN E [facility] Feb 29, 2024 09:00 AM AMBULATORY - NONE [facility] Mar 06, 2024 09:00 AM [facility] - NONE [facility] Mar 06, 2024 11:00 AM AMBULATORY - REHAB MEDICIN E [facility] March 15, 2024 09:00 AM AMBULATORY - NONE [facility] March 16, 2024 09:30 AM AMBULATORY - MEDICINE [facility] March 20, 2024 09:30 AM AMBULATORY - MEDICINE [facility] March 21, 2024 09:30 AM AMBULATORY - REHAB MEDICIN E [facility] March 27, 2024 08:30 AM [facility] March 28, 2024 10:00 AM AMBULATORY - REHAB MEDICIN E [facility] April 04, 2024 09:30 AM AMBULATORY - REHAB [facility] April 07, 2024 10:15 AM AMBULATORY - MEDICINE [facility] Apr 11, 2024 09:30 AM AMBULATORY - REHAB [facility] Apr 18, 2024 02:00 PM AMBULATORY - NONE [facility] Active, Pending, and Scheduled Orders This section includes a listing of several types of active, pending, and scheduled orders, including clinic medications orders, diagnostic test orders, procedure orders and consult orders; where the start date of the order is 45 days before the date of the Encounter or 45 days after the date of theEncounter. The data comes from all [place] treatment facilities. Test Date/Time Test Type Test Details Facility Name Feb 02, 2024 12:00 AM Laboratory - Chemi stry Order OCCULT BLOOD FIT X1 SCREEN STOOL FECES [facility] Social History: Smoking Status (Most current) and Tobacco Use (All prior to encounter date) This section includes the most current, and the historical, smoking and tobacco- related health factors from the [place] facility where the Encounter took place. Current Smoking Status This section includes the most current smoking, or tobacco-related health factor, from the [place] facility where the Encounter took place. Date/Time Current Smoking Status Comment Facil ity Aug 11, 2016 10:34 AM QUIT TOBACCO >7 YEARS AGO [facility] Tobacco Use History This section includes a history of the smoking, or tobacco-related health factors, that were collected on or before the date of the Encounter. The data comes from the [place] facility where the Encounter took place. Date/Time Smoking Status/Tobacco Use Comment Juan acility Sep 30, 2015 10:12 AM QUIT TOBACCO >7 YEARS AGO [facility] Oct 29, 2014 10:23 AM QUIT TOBACCO >7 YEARS AGO [facility] Dec 27, 2013 01:27 PM QUIT TOBACCO >7 YEARS AGO [facility] Feb 24, 2013 02:01 PM LIFETIME NON-USER OF TOBACCO [facility] Feb 11, 2009 10:09 AM QUIT TOBACCO >7 YEARS AGO [facility] Oct 06, 2006 09:30 AM CURRENT NON-TOBACC O USER-HX OF USE [facility] Oct 06, 2006 09:30 AM TOBACCO TERMINATION STAGE [facility] Advance Directives: All historical and current Section Date Range: From patient's date of to the date document was created. This section includes ALL of a patient's completed or amended [place] Advance and Rescinded Directives. The entries below indicate that a directive exists for the patient, but an actual copy is not included with this document. The data comes from all [facility]. Date Advance Directives Provider Source Jan 19, 2017 ADVANCE DIRECTIVE DISCUSSION ERICK BARDALES [facility] Encounter Notes: All associated encounter notes This section contains the clinical notes associated to the Encounter. Date/Time Encounter Note(s) Provider Source Jan 26, 2024 11:34 AM PODIATRY NOTE: LOCAL TITLE: PODIATRY NOTE STANDARD TITLE: PODIATRY NOTE DATE OF NOTE: JAN 26, 2024@11:34 ENTRY DATE: JAN 26, 2024@11:34:38 AUTHOR: NADIRA BUSBY EXP COSIGNER: URGENCY: STATUS: COMPLETED S:PT PRESENTS WITH CC OF ROUTINE FOOT EXAM. HE COMPLAINS OF NEUROPATHY PAIN. PT DENIES ANY SYSTEMIC SIGNS OF INFECTION OR RECENT TRAUMA. HE IS DIABETIC. HE IS FOLLOWED BY HIS PCP FOR HIS DM. HE GIVES HX OF NEUROPATHY. HE STATES HIS LAST BLOOD SUGAR WAS 253. HE IS NOW USING CONSTANT MONITORING OF THE BLOOD SUGAR. HE DENIES ANY OTHER CHANGES TO HIS MEDICAL HX SINCE HIS LAST FOOT EXAM. SYMPTOMS WORSENDED BY: WALKING OR SITTING OR AT NIGHT. SYMTOMS IMPROVED BY: MEDICATION PAIN SCALE: 3/10 SECONDARY TO NEUROPATHY HGA1C:HGA1C 8.1 % ALLERGIES:TRAMADOL O: PT IS ALERT AND ORIENTED X 3 AND IN NAD. HE REQUIRES ASSISTIVE DEVICES SUCH CANE FOR AMBULATING IN THE CLINIC. HE IS WEARING HIS VA ISSUED SHOES ON EXAM. VASC: PALPABLE PULSES [...] MALFORMED ELONGATED THICKENED AND DYSTROPHIC X 10. KERATOSIS IS NOTED ON THE RIGHT 2ND DIGIT DORSALLY. FEET ARE BLACK ON HEELS. MUS/SK: GOOD MUSCLE STRENGTH IN ALL 4 [...] RIGHT LEFT CRUZ: >1.0 CRUZ: 1.40 >1.0 ([place]) TOE PRESSURES (mm Hg) RIGHT: 94 LEFT: [...] TO WEAR HIS CUSTOM MADE INSERTS. 4 INFLAMED KERATOSIS RIGHT FOOT/ DISCUSSED NEED FOR MOISTURIZER MORE OFTEN AND CONSISTANT AGAIN ON THIS EXAM. DEBRIDED X 1. BETADINE APPLIED ROUTINLEY. 5 XEROSIS/ PT ADVISED TO APPLY EUCERIN TO THE PLANATAR FEET AND DRY [...] PODIATRIC GENERATED MEDICATIONS RECONCILLED AND REVIEWED. PER [place] DIRECTIVE 1122 PT IS CONSIDERED TO BE MODERATE TO HIGH RISK. /shen/ NADIRA BUSBY Staff Physician, Podiatry Signed: 01/26/2024 12:08 NADIRA BUSBY [facility]
--- OUTSIDE RECORDS SUMMARY | 2024-11-17 03:48 | XMS_ITS | Encounter Summary ---
Author Name [facility] Address [address] [place] [address] Care Team Providers Care Epic Professional Name Role Phone MANUEL BAIRD Primary Care [...] PART A Apr 08, 2017 PART A [id number] ASHLEY FINK PATIENT Selected Encounter This section includes the information on record at NH for the Encounter. 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 This section includes future appointments and future orders which are active, pending or scheduled. Future Appointments This section includes appointments that were scheduled to occur 6 months from the date of the Encounter, up to a maximum of 20 appointments. The data comes from all [place] treatment [facility]. Appointment Date/Time Appointment Type Appointme nt Facility Name Jan 26, 2024 11:30 AM AMBULATORY - SURGERY [facility] Feb 02, 2024 10:15 AM AMBULATORY - MEDICINE [facility] Feb 07, 2024 10:00 AM AMBULATORY - NONE [facility] Feb 10, 2024 11:00 AM AMBULATORY - MEDICINE [facility] Feb 11, 2024 11:00 AM AMBULATORY - MEDICINE [facility] Feb 17, 2024 11:30 AM AMBULATORY - MEDICINE [facility] Feb 21, 2024 10:00 AM AMBULATORY - NONE [facility] Feb 28, 2024 01:30 PM AMBULATORY - REHAB MEDICIN E [facility] Feb 29, 2024 09:00 AM AMBULATORY - NONE [facility] Mar 06, 2024 09:00 AM [facility]ULATORY - NONE [facility] Mar 06, 2024 11:00 AM AMBULATORY - REHAB MEDICIN E [facility] March 15, 2024 09:00 AM AMBULATORY - NONE [facility] March 16, 2024 09:30 AM AMBULATORY - MEDICINE [facility] March 20, 2024 09:30 AM AMBULATORY - MEDICINE [facility] March 21, 2024 09:30 AM AMBULATORY - REHAB MEDICIN E [facility] March 27, 2024 08:30 AM AMBULATORY - NONE [facility] March 28, 2024 10:00 AM AMBULATORY - REHAB MEDICIN E [facility] April 04, 2024 09:30 AM AMBULATORY - REHAB MEDICIN [facility] April 07, 2024 10:15 AM AMBULATORY - MEDICINE [facility] Apr 11, 2024 09:30 AM AMBULATORY - REHAB [facility] Active, Pending, and Scheduled Orders This section includes a listing of several types of active, pending, and scheduled orders, including clinic medications orders, diagnostic test orders, procedure orders and consult orders; where the start date of the order is 45 days before the date of the Encounter or 45 days after the date of theEncounter. The data comes from all [place] treatment facilities. Test Date/Time Test Type Test Details Facility Name Feb 02, 2024 12:00 AM Laboratory - Chemi stry Order OCCULT BLOOD FIT X1 SCREEN STOOL FECES SP [facility] Social History: Smoking Status (Most current) and Tobacco Use (All prior to encounter date) This section includes the most current, and the historical, smoking and tobacco- related health factors from the [place] facility where the Encounter took place. Current Smoking Status This section includes the most current smoking, or tobacco-related health factor, from the [place] facility where the Encounter took place. Date/Time Current Smoking Status Comment Facil ity March 22, 2023 10:00 AM VA-TOBACCO QUIT 15 YRS OR MORE [facility] Tobacco Use History This section includes a history of the smoking, or tobacco-related health factors, that were collected on or before the date of the Encounter. The data comes from the [place] facility where the Encounter took place. Date/Time Smoking Status/Tobacco Use Comment F acility March 22, 2023 10:00 AM VA-TOBACCO QUIT 15 YRS OR MORE [facility] Jan 29, 2022 03:00 PM VA-TOBACCO FORMER USER [facility] Jan 29, 2022 03:00 PM VA-TOBACCO QUIT 15 YRS OR MORE [facility] Feb 07, 2019 04:17 PM VA-TOBACCO FORMER USER [facility] Feb 07, 2019 04:17 PM VA-TOBACCO QUIT 15 YRS OR MORE [facility] March 09, 2018 12:36 PM QUIT TOBACCO >7 YEARS AGO [facility] Aug 05, 2017 02:36 PM QUIT TOBACCO >7 YEARS AGO [facility] Advance Directives: All historical and current Section Date Range: From patient's date of to the date document was created. This section includes ALL of a patient's completed or amended [place] Advance and Rescinded Directives. The entries below indicate that a directive exists for the patient, but an actual copy is not included with this document. The data comes from all [place] facilities. Date Advance Directives Provider Source Jan 19, 2017 ADVANCE DIRECTIVE DISCUSSION ERICK BARDALES [facility] Encounter Notes: All associated encounter notes This section contains the clinical notes associated to the Encounter. Date/Time Encounter Note(s) Provider Source Jan 24, 2024 10:56 AM INTERNAL MEDICINE CLINICAL PHARMACIST MEDICATION MGT NOTE: LOCAL TITLE: CLINICAL PHARMACIST NOTE [facility] STANDARD TITLE: INTERNAL MEDICINE CLINICAL PHARMACIST MEDICATION DATE OF NOTE: JAN 24, 2024@10:56 ENTRY DATE: JAN 24, 2024@10:56:58 AUTHOR: REED COLLADO EXP COSIGNER: URGENCY: STATUS: COMPLETED CLINICAL PHARMACY FOLLOW-UP Subjective: CHET FINK is a 73 MALE who presents to clinic for follow up on DM. PMH: 1) Asthma (SNOMED CT 314359483) 2) Gastro-esophageal reflux disease (SNOMED CT 605883369) 3) Peptic Ulcer Disease * (ICD-9-CM 533.90) 4) Hypertension (SNOMED CT 31416520) 5) Pituitary Neoplasms (ICD-9-CM 194.3) 6) Hyperlipidemia (SNOMED CT 92166827) 7) Erectile dysfunction associated with type 2 diabetes mellitus 8) Osteoarthritis of knee 9) Diabetes mellitus with neuropathy 10) Low back pain 11) Obesity 12) Patellofemoral syndrome of right knee 13) History of left total knee replacement 14) History of arthroplasty of right knee During the last contact with vet, the following changes were made: During current visit: [place] low on the way over, glucose was 69 and then ate 4 tabs and now back up to 113. Has not ate yet this AM (ate 100 debby granola bar in the clinic). Dietary/Lifestyle/Social History modifications made: --cereal in the AM, then supper --Snacks during on cantaloupe, or grapes --figuring our how to eat w/out teeth (sucks on glucose tabs) --quit snaking after a certain time at night Drinks: diet mountain dew, SF Gatorade ROS: DM (+) hypoglycemia symptoms or values <80 mg/dL (-) hyperglycemia symptoms (-) tingling/numbness (-) N/V/D/C Objective: Allergies: TRAMADOL Medications: Active and Recently Outpatient Medications (excluding Supplies): INSULIN,ASPART(EQV-NOVLG)100 UN/ML FLXPEN INJECT 6 ACTIVE UNITS UNDER THE SKIN ONCE A DAY BEFORE DINNER FOR DIABETES ADMINISTER 10 MINUTES BEFORE FOOD DIRECTED. REFRIGERATE UN-OPENED PENS. DISCARD CARTRIDGE 28 DAYS AFTER OPENING. taking 6 units before dinner INSULIN,GLARG(TOUJEO MAX) 300 UNT/ML 3ML INJECT 90 ACTIVE UNITS UNDER THE SKIN ONCE A DAY FOR DIABETES ADMINISTER AT SAME TIME EACH DAY DIRECTED. DISCARD ANY OPEN CARTRIDGE AFTER 42 DAYS. *HIGH DOSE INSULIN* taking 90 units qam METFORMIN HCL 500MG 24HR SA TAB TAKE TWO TABLETS BY ACTIVE MOUTH TWICE A DAY FOR BLOOD SUGAR CONTROL. TAKE WITH FOOD. AVOID ALCOHOL. DISCONTINUE BEFORE GETTING XRAY DYE. SEMAGLUTIDE 1MG/0.75ML INJ PEN 3ML INJECT 1MG UNDER ACTIVE THE SKIN EVERY WEEK FOR DIABETES Wednesday Medication reconciliation completed: YES Adherence to above medications: Refills/renewals needed: Labs: CMP: SODIUM 138 mEq/L [...] A1c: HGA1C 8.8 H % 11/11/2023 10:38 Self-Monitoring of Blood Glucose (SMBG): Name: Chet Fink : 1950 ID: [id number] Information from [facility] on 01/24/2024 Patient Name: Chet Fink Date Range: 12/26/2023 - 01/24/2024 bG values are displayed in mg/dL # of tests 46 Average 141 SD 45.8 Highest 245 Lowest 67 Avg tests/day 1.5 # HI 0 # LO 0 <70 2.2% 70-180 78.3% >180 17.4% Hypos(<69) 1 Date Range: 12/26/2023 - 01/24/2024 bG values are displayed in mg/dL 00:00- 05:30- 08:00- 11:00- 12:30- 17:00- 18:30- 21:30- 05:30 08:00 11:00 12:30 17:00 18:30 21:30 00:00 12/26/2023 82 Mon 12/27/2023 219 165 133 12/28/2023 164 12/29/2023 171 Ann-Marie 12/30/2023 138 12/31/2023 202 177 01/01/2024 129 01/02/2024 97 Mon 01/03/2024 245 01/04/2024 153 151 01/05/2024 173 Ann-Marie 01/06/2024 155 180 01/07/2024 137 01/08/2024 115 01/09/2024 102 01/10/2024 226 160 156 01/11/2024 156 01/12/2024 157 Ann-Marie 01/13/2024 108 01/14/2024 121 01/15/2024 86 191 01/16/2024 138 01/17/2024 119 01/18/2024 110 01/19/2024 67 77 205 226 74 110 Ann-Marie 01/20/2024 123 01/21/2024 113 01/22/2024 188 01/23/2024 88 Mon 01/24/2024 129 69 76 113 Date Range: 12/26/2023 - 01/24/2024 bG values are displayed in mg/dL 00:00- 05:30- 08:00- 11:00- 12:30- 17:00- 18:30- :30- 05:30 08:00 11:00 12:30 17:00 18:30 21:30 00:00 # of tests 0 11 24 2 1 3 4 1 Average 0 142 137 159 156 101 165 191 SD 40.7 50.3 2.1 0 43.6 40.2 0 Hi/Lo 0 0 0 0 0 0 0 0 End of information from [facility] BP last visit:138/82 (11/18/2023 09:50) Pulse last visit: 82 (11/18/2023 09:45) Manual BP seated, rested: not checked due to time Assessment/Plan: 1) Diabetes Goal A1c <7-8%, FBG 80-130, post-prandial BG <180, per [place] guidelines --Uncontrolled per a1c due to past non compliance. Taking DM meds now. Denies ADRs to meds. Low this AM as he has not ate yet, treated w/ 4 glucose tabs and granola bar. Stressed the need to eat regular meals. --Continue metformin SA 500mg to 2 tabs BID as directed. --Continue semaglutide 1mg once a week. --Continue 300 units/ml 90 units daily --Continue aspart 6 units before dinner. --Instructed vet to check SMBGs using pretty --Educated vet on hypoglycemia symptoms and appropriate treatment and when to call clinic or go to emergency room. Call for lows <70. Blackberry Pretty 3 patient education Patient evaluation, education and training, specific to operating and managing the device has been completed. Yes Patient has demonstrated competency in coordinating proper maintenance for the CGMS. Yes Patient understands his/her responsibility to adhere to the motion picture printer recommendations regarding the performance of self-monitoring of blood glucose calibration of the CGM as recommended by the motion picture printer. Yes Patient demonstrated the ability to achieve the stated goals from the problem based needs assessment Person(s)instructed: self Instruction: CGM overview and set-up 1. The FreeStyle Pretty 3 Continuous Glucose Monitoring System is a real time continuous glucose monitoring (CGM) device with alarms capability indicated for the management of diabetes in persons 2. Alarms (Alarms are on by default. Low 70 and High 240). Must scan sensor to start sensor. 3. Interstitial vs. capillary blood glucose readings 4. When to verify sensor reading with fingerstick blood glucose - Do a blood glucose test if you think your glucose readings are not correct or do not match how you feel. Do not ignore symptoms that may be due to low or high glucose. - Do a blood glucose test when you see the check BG symbol during the first 12 hours of wearing a Sensor or the Sensor glucose reading does not include a Current Glucose number Sensor application 1. Site selection and site prep with alcohol pad/Skin Prep Wipe 2. Sensor prep-sensor pack and sensor applicator 3. Starting the sensor: 1 hour warm up before BG readings available 4. Sensor change every 14 days and rotate site 5. Call [employer] service, ([phone]) if sensor comes off before 14 days sensor placed on back of left arm today Safety and Troubleshooting 1. When the test BG symbol appears, test fingerstick blood glucose prior to making treatment decisions 2. Do a fingerstick blood glucose test if the sensor readings do not match how you feel 3. Remove sensor prior for MRI or CT. Sensor may be damaged by exposure to airport x-ray screening 4. Vitamin C over 500mg daily may cause false high readings. 5. Store sensor kit between 36 and 82 degrees. Contact information provided for [employer] service and/or hardware trainer. -Educated vet on risks/benefits of new medication, new labs. -Education provided on nonpharmacologic ways to improve DM/HLD/HTN (including lifestyle management/dietary/physical activity) specific for the vet's needs. - verbalized understanding to all plans discussed today. Questions were answered to vet's satisfaction. 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
--- OUTSIDE RECORDS SUMMARY | 2024-11-17 03:49 | XMS_ITS ---
Author Name [facility] [place] [facility] [place] Organization [place] Address [address] [place] [address] Care Team Providers Care Cloth Bin Packer Name Role Phone MANUEL BAIRD Primary [...] PART A Apr 08, 2017 PART A [id number] ASHLEY WALKER PATIENT Selected Encounter This section includes the information on record at [place] for the Encounter. Date/Time Encounter Type Encounter Description Reason Provider Source Nov 11, 2023 10:00 AM OFFICE O/P EST LOW 20 MIN PM&RS PHYSICIAN ICD-10-CM M48.062 Spinal stenosis, lumbar region with neurogenic claudication SIR CABRERA HENDRIX Encounter Template Text not used by VA Assessments - Encounter Diagnoses This section includes the primary and secondary diagnoses documented for the Encounter. Date/Time Primary/Secondary Diagnosis Diagnosis Name Provider Source Nov 11, 2023 10:22 AM PRIMARY Spinal stenosis, lumbar region with neurogenic claudication ASHLEY HENDRIX [facility] Nov 11, 2023 10:22 AM SECONDARY Difficulty in walking, not elsewhere classified ASHLEY HENDRIX [facility] Nov 11, 2023 10:22 AM SECONDARY Vertebrogenic low back pain ASHLEY HENDRIX [facility] Plan of Treatment: Future Appointments (+ 6 months) and Future Tests (+/- 45 days) The Plan of Treatment section includes future care activities for the patient from all [place] [facility] This section includes future appointments and future orders which are active, pending or scheduled. Future Appointments This section includes appointments that were scheduled to occur 6 months from the date of the Encounter, up to a maximum of 20 appointments. The data comes from all [facility]. Appointment Date/Time Appointment Type Appointme nt Facility Name Nov 12, 2023 11:00 AM AMBULATORY - NONE [facility] Nov 15, 2023 09:00 AM AM[facility]ULATORY - NONE [facility] [facility] Nov 16, 2023 10:30 AM AMBULATORY - SUR[facility]ERY [facility] Nov 18, 2023 09:30 AM AMBULATORY - MEDICINE [facility] Nov 29, 2023 08:30 AM AMBULATORY - NONE [place] [facility] Dec 06, 2023 09:00 AM AMBULATORY - NONE [place] [facility] Dec 08, 2023 10:00 AM AMBULATORY - SURGERY [facility] Dec 16, 2023 09:30 AM AMBULATORY - MEDICINE [facility] Dec 16, 2023 11:15 AM AMBULATORY - MEDICINE [facility] Jan 03, 2024 09:00 AM AMBULATORY - NONE [place] [facility] Jan 24, 2024 08:30 AM AMBULATORY - NONE [place] [facility] Jan 24, 2024 11:30 AM AMBULATORY - MEDICINE [facility] Jan 26, 2024 11:30 AM AMBULATORY - [facility]ERY [facility] Feb 02, 2024 10:15 AM AMBULATORY - MEDICINE [facility] Feb 07, 2024 10:00 AM AM[facility]ULATORY - NONE [place] [facility] Feb 10, 2024 11:00 AM AMBULATORY - MEDICINE [facility] Feb 11, 2024 11:00 AM AMBULATORY - MEDICINE [facility] Feb 17, 2024 11:30 AM AMBULATORY - MEDICINE [facility] Feb 21, 2024 10:00 AM [facility]ULATORY - NONE [facility] Feb 28, 2024 01:30 PM AMBULATORY - REHAB MEDICIN E [facility] Lab Results: +/- 30 days of [...] Result - Unit Interpretation Reference Range Comment Nov 11, 2023 10:38 AM [facility] HGA1C Specimen Type: BLOOD No comment entered. Ordering Provider: REED COLLADO Report Released Date/Time: Oct 18, 2023 11:23 AM Reporting Lab: [place] [address] [address] [address] Performing Lab: [place] [address] [address] HGA1C 8.8 H 4.0-6.0 Social History: Smoking Status (Most current) and [...] 10:34 AM QUIT TOBACCO >7 YEARS AGO [facility] Tobacco Use History This section includes a history of the smoking, or tobacco-related health factors, that were collected on or before the date of the Encounter. The data comes from the [place] facility where the Encounter took place. Date/Time Smoking Status/Tobacco Use Comment Jaun borden Sep 30, 2015 10:12 AM QUIT TOBACCO >7 YEARS AGO [facility] Oct 29, 2014 10:23 AM QUIT TOBACCO >7 YEARS AGO [facility] Dec 27, 2013 01:27 PM QUIT TOBACCO >7 YEARS AGO [facility] Feb 24, 2013 02:01 PM LIFETIME NON-USER OF TOBACCO [facility] Feb 11, 2009 10:09 AM QUIT TOBACCO >7 YEARS AGO [facility] Oct 06, 2006 09:30 AM CURRENT NON-TOBACC O USER-HX OF USE [facility] Oct 06, 2006 09:30 AM TOBACCO TERMINATION STAGE [facility] Advance Directives: All historical and current [...] 19, 2017 ADVANCE DIRECTIVE DISCUSSION ERICK BARDALES [facility] Encounter Notes: All associated encounter notes This section contains the clinical notes associated to the Encounter. Date/Time Encounter Note(s) Provider Source Nov 11, 2023 10:20 AM PHYSICAL MEDICINE REHAB NOTE: LOCAL TITLE: PMR ST STANDARD TITLE: PHYSICAL MEDICINE REHAB NOTE DATE OF NOTE: NOV 11, 2023@10:20 ENTRY DATE: NOV 11, 2023@10:20:58 AUTHOR: LUIZ HENDRIX EXP COSIGNER: URGENCY: STATUS: COMPLETED Life Sustaining Treatment Orders INTERVAL HISTORY Patient is a 73 year old with history of PMHx NAFLD, Obesity, HTN, JACQUELINE, GERD, CLBP, Bilat TKA , IDDM with polyneuropathy, chronic back pain. Ongoing claudication symptoms. MRI Jul 2023 with Advanced multilevel degenerative disc disease. Significant central canal stenosis with thecal sac impingement at L2-L3 and L4-L5. Patient saw NSY and was recommended surgery but he opted against surgical intervention. He is requesting NIRMALA. Doing BFA with over 50% relief and attending sessions every twice a week. He feels his walking tolerance is better and now walking in community with cane. I don't nee the rollator Now his standing tolerance is better and now able to stand and cook. PAST MEDICAL HISTORY: 1) Asthma (SNOMED CT 896521443) 2) Gastro-esophageal reflux disease (SNOMED CT 152984623) 3) Peptic Ulcer Disease * (ICD-9-CM 533.90) 4) Hypertension (SNOMED CT 22236956) 5) Pituitary Neoplasms (ICD-9-CM 194.3) 6) Hyperlipidemia (SNOMED CT 66475765) 7) Erectile dysfunction associated with type 2 diabetes mellitus 8) Osteoarthritis of knee 9) Diabetes mellitus with neuropathy 10) Low back pain 11) Obesity 12) Patellofemoral syndrome of right knee 13) History of left total knee replacement 14) History of arthroplasty of right knee Active Outpatient Medications (including Supplies): Active Outpatient Medications Status 1) ACCU-CHEK GUIDE (GLUCOSE) TEST STRIP USE 1 STRIP FOR ACTIVE BLOOD TEST TWICE A DAY FOR BLOOD SUGAR MONITORING 2) ALBUTEROL 90MCG (CFC-F) 200D ORAL INHL INHALE 1 PUFF ACTIVE BY ORAL INHALATION FOUR TIMES A DAY NEEDED FOR BREATHING. SHAKE WELL. RINSE MOUTHPIECE FREQUENTLY TO PREVENT CLOGGING. 3) ATORVASTATIN CALCIUM 80MG TAB TAKE ONE-HALF TABLET BY ACTIVE MOUTH EVERY EVENING FOR HIGH CHOLESTEROL 4) DULOXETINE HCL 60MG EC CAP TAKE ONE CAPSULE BY MOUTH ACTIVE ONCE A DAY FOR NERVE PAIN DO NOT ABRUPTLY DISCONTINUE MEDICATION. 5) HCTZ 12.5/LISINOPRIL 20MG TAB TAKE 2 TABLETS BY MOUTH ACTIVE EVERY MORNING TO LOWER BLOOD PRESSURE 6) HYDROPHILIC (EQV EUCERIN) TOP CREAM APPLY LIBERALLY ACTIVE TO AFFECTED AREA(S) ONCE A DAY (EXTERNAL USE ONLY) DRY BETWEEN TOES AFTER APPLYING. 7) INSULIN,GLARG(TOUJEO MAX) 300 UNT/ML 3ML INJECT 100 ACTIVE UNITS UNDER THE SKIN ONCE A DAY FOR DIABETES ADMINISTER AT SAME TIME EACH DAY DIRECTED. DISCARD ANY OPEN CARTRIDGE AFTER 42 DAYS. *HIGH DOSE INSULIN* 8) LANCET,SOFTCLIX USE LANCET FOR BLOOD TEST TWICE A DAY ACTIVE FOR BLOOD SUGAR MONITORING USE DIRECTED 9) LIDOCAINE 5% PATCH APPLY 1 PATCH TO SKIN SITE ONCE A ACTIVE DAY NEEDED FOR LOCAL ANESTHESIA APPLY PATCH AND PRESS FIRMLY FOR 10-15 SECONDS. KEEP ON FOR 12 HOURS THEN REMOVE PATCH FOR 12 HOURS. 10) METFORMIN HCL 500MG 24HR SA TAB TAKE TWO TABLETS BY ACTIVE MOUTH TWICE A DAY FOR BLOOD SUGAR CONTROL. TAKE WITH FOOD. AVOID ALCOHOL. DISCONTINUE BEFORE GETTING XRAY DYE. 11) METHOCARBAMOL 500MG TAB TAKE 1 TABLET BY MOUTH TWICE ACTIVE DAILY NEEDED FOR MUSCLE SPASM 12) NEEDLE,PEN 31G,5MM USE 1 NEEDLE UNDER THE SKIN ONCE A ACTIVE DAY FOR INJECTION 13) OMEPRAZOLE 20MG EC CAP TAKE ONE CAPSULE BY MOUTH ACTIVE EVERY MORNING TO LOWER STOMACH ACID. TAKE 30 MINUTES PRIOR TO FOOD. 14) SEMAGLUTIDE 1MG/0.75ML INJ PEN 3ML INJECT 1MG UNDER ACTIVE THE SKIN EVERY WEEK FOR DIABETES Active Non-VA Medications Status 1) Non-VA NAPROXEN NA 220MG TAB 220MG BY MOUTH ACTIVE NEEDED MAY 06, 2023 HIPS W/PELVIS BILAT 4 OR MORE VIEWS FINDINGS:No acute pelvic fracture, hip fracture or hip dislocation. The shape of both femoral heads is normal. Both hip joint spaces still appear to be well-maintained. There is no significant spur formation around either hip joint space. Moderate osteoarthritic changes are noted of the visualized lower lumbar spine. Vascular calcifications and prostate calcifications noted. Impression: Normal bilateral hip exam. Moderate osteoarthritis of the partially visualized lower lumbar spine. MAY 06, 2023 Sacroiliac joints 3 views Impression: Degenerative disc disease in the lower lumbar spine is better evaluated on dedicated radiographs. No abnormal bony erosions. No abnormal sclerosis. No ankylosis. MAY 06, 2023 Lumbar spine 3 views Impression: There is progression of atherosclerosis. There is progression of multilevel intervertebral disc space height loss and endplate remodeling. Vacuum disc formation is seen at multiple levels. Multilevel facet arthropathy is redemonstrated. There is progression of narrowing of the interspinous spaces with remodeling the spinous processes. L5 is sacralized bilaterally. Normal vertebral body heights. No traumatic subluxation of the posterior elements. JUL 22, 2023 MRI lumbar spine without intravenous contrast FINDINGS: There is multilevel degenerative intervertebral disc space height loss, discogenic changes, endplate remodeling, and listhesis. There is grade 1 degenerative anterolisthesis at L4-L5 secondary to facet arthropathy. There is multilevel narrowing of the interspinous spaces with remodeling the spinous processes. There is multilevel facet arthropathy and ligamentum flavum hypertrophy. Hypointense signal in the intervertebral disc spaces is suggestive of vacuum phenomena. Acute on chronic endplate signal changes are seen. The lowest fully formed intervertebral disc space is designated as L5-S1. No suspicious marrow replacing lesion. Normal distal spinal cord signal. The conus is at L1-L2. T11-T12: No significant central canal stenosis. T12-L1: No significant neuroforaminal stenosis. No significant central canal stenosis. L1-L2: No significant neuroforaminal stenosis. Mild disc bulge. No significant central canal stenosis. L2-L3: Severe left moderate right neuroforaminal stenosis. Disc bulge with superimposed superiorly migrating left paracentral disc extrusion. Facet arthropathy. There is severe central canal stenosis with impingement of the thecal sac and nerve roots on the left. Left subarticular stenosis of the descending left L3 nerve root. L3-L4: Mild bilateral neuroforaminal stenosis. Disc bulge asymmetric on the left. Facet arthropathy and ligamentum flavum hypertrophy. Left subarticular stenosis. Moderate central canal stenosis. L4-L5: Moderate left mild right neuroforaminal stenosis. Disc bulge. Severe right greater than left facet arthropathy. Ligamentum flavum hypertrophy. Severe central canal stenosis with thecal sac impingement and nerve root crowding. Bilateral subarticular stenosis with impingement of the descending L5 nerve roots. L5-S1: Disc osteophyte complex. Mild bilateral neuroforaminal stenosis with abutment of exiting L5 nerve roots extraforaminal zone. Bilateral subarticular stenosis of the descending S1 nerve roots. Mild central canal stenosis Impression: Advanced multilevel degenerative disc disease as discussed above. Significant central canal stenosis with thecal sac impingement at L2-L3 and L4-L5. VASCULAR LABORATORY: CRUZ EXAMINATION Indication:Claudication RIGHT LEFT JACQUARD FIXER: >230 JACQUARD FIXER: >230 DPA: >230 DPA: >230 BRACH: 152 BRACH: 154 CRUZ: >1.0 CRUZ: >1.0 TOE PRESSURES (mm Hg) RIGHT: 89 LEFT: 89 IMPRESSION:non compressible vessels at the ankle bilaterally. cruz's are artificially elevated. toe pressures appear to be near normal bilaterally Impression Patient is a 73 year old with history of PMHx NAFLD, Obesity, HTN, JACQUELINE, GERD, CLBP, Bilat TKA , IDDM with polyneuropathy. MRI of LS spine with evidence of multilevel DDD, facet arthropathy and multi level severe spinal stenosis with neurogenic claudication. Duloxetine,Pregabalin,Melox icam minimal relief. -Meloxicam 7.5mg daily prn -Pregabalin 200mg BID, Duloxetine 60mg daily, lidocaine patch -Methocarbomol 500mg BID prn Assessment/Plan #Vertebrogenic back pain with multilevel spinal stenosis resulting in neurogenic claudication and difficulty walking -started PT at [place] -NSY recommended decompression but patient not interested -Pain management consult placed but patient missed scheduling and not interested at this time -feeling over 50% pain relief with BFA and wants to continue every two weeks #walking difficulties with hx of falls- decreased dynamic and static balance, peripheral neuropathy with loss of sensation, leg pain consistant with neurogenic claudication symptoms Patient medically stable in regards to back pain and can return to PCP care. Treatment plan discussed with and mutually agreed upon plan as discussed above. [place] did not have further questions at the time; contact information provided. I have personally spent ___26 minutes total time reviewing medical records, ordering diagnostic tests, communicating with internal staff, drafting patient letter,educating patient, revising care plan and documenting visit. /shen/ LUIZ HENDRIX M.D., Staff Physician Signed: 11/11/2023 10:22 LUIZ HENDRIX [facility]
--- OUTSIDE RECORDS SUMMARY | 2024-11-17 03:49 | XMS_ITS | Encounter Summary ---
Author Name [facility] [place] [facility] [place] Organization [place] Address [address] [place] [address] Care Team Providers Care Auto Tech Name Role Phone MANUEL BAIRD Primary Care [...] PART A Apr 08, 2017 PART A [id number] ASHLEY WALKER PATIENT Selected Encounter This section includes the information on record at [place] for the Encounter. Date/Time Encounter Type Encounter Description Reason Provider Source Dec 06, 2023 09:00 AM ACUPUNCT W/O STIMUL 15 MIN [facility] TREATMENT ICD-10-CM M54.50 Low back pain, unspecified ZANDER FINE Encounter Template Text not used by [facility] Assessments - Encounter Diagnoses This section includes the primary and secondary diagnoses documented for the Encounter. Date/Time Primary/Secondary Diagnosis Diagnosis Name Provider Source Dec 06, 2023 12:11 PM PRIMARY Low back pain, unspecified ZANDER FINE [facility] Plan of Treatment: Future Appointments (+ 6 months) and Future Tests (+/- 45 days) The Plan of Treatment section includes future care activities for the patient from all [place] [facility]. This section includes future appointments and future orders which are active, pending or scheduled. Future Appointments This section includes appointments that were scheduled to occur 6 months from the date of the Encounter, up to a maximum of 20 appointments. The data comes from all [facility]. Appointment Date/Time Appointment Type Appointme nt Facility Name Dec 08, 2023 10:00 AM AMBULATORY - SURGERY [facility] Dec 16, 2023 09:30 AM [facility] Dec 16, 2023 11:15 AM [facility] Jan 03, 2024 09:00 AM AM[facility]ATORY - NONE [facility] [facility] Jan 24, 2024 08:30 AM AMBULATORY - NONE [place] [facility] Jan 24, 2024 11:30 AM [facility] Jan 26, 2024 11:30 AM AMBULATORY - SURGERY [facility] Feb 02, 2024 10:15 AM [facility] Feb 07, 2024 10:00 AM AMBULATORY - NONE [facility] [facility] Feb 10, 2024 11:00 AM AMBULATORY - MEDICINE [facility] Feb 11, 2024 11:00 AM AMBULATORY - [facility]ICINE [facility] Feb 17, 2024 11:30 AM [facility] Feb 21, 2024 10:00 AM AMBULATORY - NONE [facility] [facility] Feb 28, 2024 01:30 PM AMBULATORY - REHAB MEDICIN E [facility] Feb 29, 2024 09:00 AM AMBULATORY - NONE [facility] Mar 06, 2024 09:00 AM AMBULATORY - NONE [facility] [facility] Mar 06, 2024 11:00 AM AMBULATORY - REHAB MEDICIN E [facility] March 15, 2024 09:00 AM AMBULATORY - NONE [facility] March 16, 2024 09:30 AM [facility] March 20, 2024 09:30 AM AMBULATORY - MEDICINE [facility] Lab Results: +/- 30 days [...] Range Comment Nov 11, 2023 10:38 AM [facility] HGA1C Specimen Type: BLOOD No comment entered. Ordering Provider: REED COLLADO Report Released Date/Time: Oct 18, 2023 11:23 AM Reporting Lab: [facility] [address] [place] [address] Performing Lab: [facility] [address] [place] [address] HGA1C 8.8 H 4.0-6.0 Advance Directives: All historical and current Section Date Range: From patient's date of to the date document was created. This section includes ALL of a patient's completed or amended [place] Advance and Rescinded Directives. The entries below indicate that a directive exists for the patient, but an actual copy is not included with this document. The data comes from all [place] facilities. Date Advance Directives Provider Source Jan 19, 2017 ADVANCE DIRECTIVE DISCUSSION ERICK BARDALES [facility] Encounter Notes: All associated encounter notes This section contains the clinical notes associated to the Encounter. Date/Time Encounter Note(s) Provider Source Dec 06, 2023 12:10 PM [facility] NOTE: LOCAL TITLE: [place] ACUPUNCTURE NOTE STANDARD TITLE: [facility] NOTE DATE OF NOTE: DEC 06, 2023@12:10 ENTRY DATE: DEC 06, 2023@12:10:54 AUTHOR: ZANDER FINE EXP COSIGNER: URGENCY: STATUS: COMPLETED Follow up visit [facility] Acupuncture/[facility] Acupressure was the only treatment given. Patient was evaluated and agreed to receive [place] Acupuncture (BFA). Patient was evaluated and agreed to receive [place] Acupuncture Protocol (BFA)/[place] Acupressure (BAA) for the following pain condition(s): Comment: back Pre BFA/BAA Numeric Pain Rating Scale of site with highest pain: number from 0-10: 8 The patient was asked the following questions: During the past 24 hours, how much has your pain interfered with your usual activity? number from 0-10: 8 During the past 24 hours, how much has your pain interfered with your usual sleep? number from 0-10: 8 During the past 24 hours, how much has the pain affected your usual mood? number from 0-10: 8 During the past 24 hours, how much has pain contributed to your stress? number from 0-10: 8 Oral Informed Consent obtained for BFA/BAA Procedure: Ear was prepped with alcohol Needle type: Ear press tacks The following points were placed: All 10 points in both ears Complications: Patient tolerated well, without any complications. Post treatment Numeric Pain Rating Scale: number from 0-10: 8 Standard [id number] time for application of BFA/BAA protocol is [...] tape that holds the needle in place. -M[place] must be placed in a sharps container [...] your condition worsen. /shen/ ZANDER FINE, MSN, BOAT DRIVER, BURR MACHINE OPERATOR-C, DipACLM //[facility] NURSE PRACTITIONER Signed: 12/06/2023 12:11 ZANDER FINE [facility]
--- OUTSIDE RECORDS SUMMARY | 2024-11-17 03:49 | XMS_ITS | Encounter Summary ---
Author Name [facility] [place] Address [address] [place] [address] Care Team Providers Care Distributor Publications Name Role Phone MANUEL BAIRD Primary Care [...] PART A Apr 08, 2017 PART A [id number] ASHLEY WALKER PATIENT Selected Encounter This section includes the information on record at [place] for the Encounter. Date/Time Encounter Type Encounter Description Reason Provider Source Nov 15, 2023 09:00 AM ACUPUNCT W/O STIMUL 15 MIN CIH TREATMENT ICD-10-CM M54.50 Low back pain, unspecified ZANDER FINE Encounter Template Text not used by [place] Assessments - Encounter Diagnoses This section includes the primary and secondary diagnoses documented for the Encounter. Date/Time Primary/Secondary Diagnosis Diagnosis Name Provider Source Nov 15, 2023 08:58 AM PRIMARY Low back pain, unspecified ZANDER FINE [facility] Plan of Treatment: Future Appointments (+ 6 months) and Future Tests (+/- 45 days) The Plan of Treatment section includes future care activities for the patient from all [place] [facility] This section includes future appointments and future orders which are active, pending or scheduled. Future Appointments This section includes appointments that were scheduled to occur 6 months from the date of the Encounter, up to a maximum of 20 appointments. The data comes from all [facility]. Appointment Date/Time Appointment Type Appointme nt Facility Name Nov 16, 2023 10:30 AM AMBULATORY - SURGERY [facility] Nov 18, 2023 09:30 AM AMBULATORY - MEDICINE [facility] Nov 29, 2023 08:30 AM AMBULATORY - NONE [facility] Dec 06, 2023 09:00 AM AMBULATORY - NONE [facility] Dec 08, 2023 10:00 AM AMBULATORY - SURGERY [facility] Dec 16, 2023 09:30 AM AMBULATORY - MEDICINE [facility] Dec 16, 2023 11:15 AM AMBULATORY - MEDICINE [facility] Jan 03, 2024 09:00 AM AMBULATORY - NONE [facility] Jan 24, 2024 08:30 AM AMBULATORY - NONE [facility] Jan 24, 2024 11:30 AM AMBULATORY - MEDICINE [facility] Jan 26, 2024 11:30 AM AMBULATORY - SURGERY [facility] Feb 02, 2024 10:15 AM AMBULATORY - MEDICINE [facility] Feb 07, 2024 10:00 AM AMBULATORY - NONE [facility] Feb 10, 2024 11:00 AM AMBULATORY - MEDICINE [facility] Feb 11, 2024 11:00 AM AMBULATORY - MEDICINE [facility] Feb 17, 2024 11:30 AM AMBULATORY - MEDICINE [facility] Feb 21, 2024 10:00 AM AMBULATORY - NONE [facility] Feb 28, 2024 01:30 PM AMBULATORY - REHAB MEDICIN E [facility] Feb 29, 2024 09:00 AM [facility]ULAT[facility] N[facility] Mar 06, 2024 09:00 AM AMBULATORY - NONE [facility] Lab Results: +/- 30 days of [...] Range Comment Nov 11, 2023 10:38 AM [facility] HGA1C Specimen Type: BLOOD No comment entered. Ordering Provider: REED COLLADO Report Released Date/Time: Oct 18, 2023 11:23 AM Reporting Lab: [facility] [address] [facility] [address] Performing Lab: [facility] [address] [facility] [facility] [address] HGA1C 8.8 H 4.0-6.0 Advance Directives: All [...] this document. The data comes from all [place] facilities. Date Advance Directives Provider Source Jan 19, 2017 ADVANCE DIRECTIVE DISCUSSION ERICK BARDALES [facility] Encounter Notes: All associated encounter notes This section contains the clinical notes associated to the Encounter. Date/Time Encounter Note(s) Provider Source Nov 15, 2023 08:57 AM [facility] NOTE: LOCAL TITLE: [place] ACUPUNCTURE NOTE STANDARD TITLE: [facility] NOTE DATE OF NOTE: NOV 15, 2023@08:57 ENTRY DATE: NOV 15, 2023@08:58:02 AUTHOR: ZANDER FINE EXP COSIGNER: URGENCY: STATUS: COMPLETED Follow up visit [place] Acupuncture/[place] Acupressure was the only treatment given. Patient was evaluated and agreed to receive [place] Acupuncture (BFA). Patient was evaluated and agreed to receive [place] Acupuncture Protocol (BFA)/[place] Acupressure (BAA) for the following pain condition(s): [...] Rating Scale: number from 0-10: 5 Standard uhci-au-qdge time for application of BFA/BAA protocol is [...] tape that holds the needle in place. -Helvetia must be placed in a sharps container [...] your condition worsen. /shen/ ZANDER FINE, MSN, THREAD PULLER, SALES OPERATIONS CONSULTANT-C, DipACLM //[facility] NURSE PRACTITIONER Signed: 11/15/2023 08:58 ZANDER FINE [facility]
--- OUTSIDE RECORDS SUMMARY | 2024-11-17 03:49 | XMS_ITS | Encounter Summary ---
Author Name Department of [place] Organization [place] Address [address] [place] [address] Care Team Providers Care Certified Paralegal Name Role Phone MANUEL BAIRD Primary Care [...] PART A Apr 08, 2017 PART A [id number] 79A ASHLEY FINK PATIENT Selected Encounter This section includes the information on record at [place] for the Encounter. Date/Time Encounter Type Encounter Description Reason Pro vider Source Dec 08, 2023 10:50 AM Outpatient Encounter ADMIN PAT ACTIVTIES (MASNONCT) IHE Encounter Template Text not used by [place] [...] from all [facility]. Appointment Date/Time Appointment Type Appointme nt Facility Name Dec 16, 2023 09:30 AM AMBULATORY - MEDICINE [facility] Dec 16, 2023 11:15 AM AMBULATORY - MEDICINE [facility] Jan 03, 2024 09:00 AM AMBULATORY - NONE [facility] Jan 24, 2024 08:30 AM AMBULATORY - NONE [facility] Jan 24, 2024 11:30 AM AMBULATORY - MEDICINE [facility] Jan 26, 2024 11:30 AM AMBULATORY - SURGERY [facility] Feb 02, 2024 10:15 AM AMBULATORY - MEDICINE [facility] Feb 07, 2024 10:00 AM AMBULATORY - NONE [facility] Feb 10, 2024 11:00 AM AMBULATORY - MEDICINE [facility] Feb 11, 2024 11:00 AM AMBULATORY - MEDICINE [facility] Feb 17, 2024 11:30 AM AMBULATORY - MEDICINE [facility] Feb 21, 2024 10:00 AM AMBULATORY - NONE [facility] Feb 28, 2024 01:30 PM AMBULATORY - REHAB MEDICIN E [facility] Feb 29, 2024 09:00 AM AMBULATORY - NONE [facility] Mar 06, 2024 09:00 AM AMBULATORY - NONE [facility] Mar 06, 2024 11:00 AM AMBULATORY - REHAB MEDICIN E [facility] March 15, 2024 09:00 AM [facility]UL[facility]ORY [facility] NONE [facility] March 16, 2024 09:30 AM AMBULATORY - MEDICINE [facility] March 20, 2024 09:30 AM AMBULATORY - MEDICINE [facility] March 21, 2024 09:30 AM AMBULATORY - REHAB MEDICIN E [facility] Lab Results: +/- 30 days of [...] Range Comment Nov 11, 2023 10:38 AM [facility] HGA1C Specimen Type: BLOOD No comment entered. Ordering Provider: REED COLLADO Report Released Date/Time: Oct 18, 2023 11:23 AM Reporting Lab: [facility] [address] [address] Performing Lab: [facility] [address] [facility] [address] HGA1C 8.8 H 4.0-6.0 Social History: Smoking [...] AM QUIT TOBACCO >7 YEARS AGO [facility] Tobacco Use History This section includes a history of the smoking, or tobacco-related health factors, that were collected on or before the date of the Encounter. The data comes from the [place] facility where the Encounter took place. Date/Time Smoking Status/Tobacco Use Comment Juan acmichael Sep 30, 2015 10:12 AM QUIT TOBACCO >7 YEARS AGO [facility] Oct 29, 2014 10:23 AM QUIT TOBACCO >7 YEARS AGO [facility] Dec 27, 2013 01:27 PM QUIT TOBACCO >7 YEARS AGO [facility] Feb 24, 2013 02:01 PM LIFETIME NON-USER OF TOBACCO [facility] Feb 11, 2009 10:09 AM QUIT TOBACCO >7 YEARS AGO [facility] Oct 06, 2006 09:30 AM CURRENT NON-TOBACC O USER-HX OF USE [facility] Oct 06, 2006 09:30 AM TOBACCO TERMINATION STAGE [facility] Advance Directives: All historical and [...] DIRECTIVE DISCUSSION ERICK BARDALES [facility] Encounter Notes: All associated encounter notes This section contains the clinical notes associated to the Encounter. Date/Time Encounter Note(s) Provider Source Dec 08, 2023 10:50 AM PHYSICIAN LETTERS: LOCAL TITLE: NO SHOW LETTER [facility] STANDARD TITLE: PHYSICIAN LETTERS DATE OF NOTE: DEC 08, 2023@10:50 ENTRY DATE: DEC 08, 2023@10:51:13 AUTHOR: JACQUELIN ALVAREZ EXP COSIGNER: URGENCY: STATUS: COMPLETED [facility] [address] [place] [address] DEC 08, 2023 ABIEL FINK [address] [place], [place] [address] Dear Abiel Fink, Thank you for choosing the [facility] as your primary choice for health care. As a partner in your health care, we are attempting to contact you because our records indicate that you did not make it to your scheduled appointment, and we would like to re-schedule. Please call us at [phone], [id number] [phone] to speak to us regarding making an [...] the clinic to inquire about scheduling. Sincerely, JACQUELIN ALVAREZ ADVANCED FUNDING SPECIALIST ABIEL FINK TYRONE L [facility]
--- OUTSIDE RECORDS SUMMARY | 2024-11-17 03:49 | XMS_ITS | Encounter Summary ---
Author Name Department of Veter[place] Affairs [place]) Organization [facility] [place] Address [address] [place] [address] Care Team Providers Care Drawer In Hand Name Role Phone MANUEL BAIRD Primary Care [...] PART A Apr 08, 2017 PART A [id number] ASHLEY WALKER PATIENT Selected Encounter This section includes the information on record at [place] for the Encounter. Date/Time Encounter Type Encounter Description Reason Provider Source Nov 16, 2023 10:33 AM EXTENDED VISUAL FIELD XM OPHTHALMOLOGY ICD-10-CM E23.6 Other disorders of pituitary gland MELANIE ESCOTO SA Nav Encounter Template Text not used by [place] Assessments - Encounter Diagnoses This section includes the primary and secondary diagnoses documented for the Encounter. Date/Time Primary/Secondary Diagnosis Diagnosis Name Provider Source Nov 16, 2023 10:36 AM PRIMARY Other disorders of pituitary gland JEWELL ESCOTO [facility] Plan of Treatment: Future Appointments (+ 6 months) and Future Tests (+/- 45 days) The Plan of Treatment section includes future care activities for the patient from all [place] [facility]. This section includes future appointments and future orders which are active, pending or scheduled. Future Appointments This section includes appointments that were scheduled to occur 6 months from the date of the Encounter, up to a maximum of 20 appointments. The data comes from all [facility]. Appointment Date/Time Appointment Type Appointme nt Facility Name Nov 18, 2023 09:30 AM AMBULATORY - MEDICINE [facility] Nov 29, 2023 08:30 AM AMBULATORY - NONE [facility] Dec 06, 2023 09:00 AM AMBULATORY - NONE [place] [facility] Dec 08, 2023 10:00 AM AMBULATORY - SURGERY [facility] Dec 16, 2023 09:30 AM AMBULATORY - MEDICINE [facility] Dec 16, 2023 11:15 AM AMBULATORY - MEDICINE [facility] Jan 03, 2024 09:00 AM AMBULATORY - NONE [facility] [facility] Jan 24, 2024 08:30 AM AMBULATORY - NONE [place] [facility] Jan 24, 2024 11:30 AM AMBULATORY - MEDICINE [facility] Jan 26, 2024 11:30 AM AMBULATORY - SURGERY [facility] Feb 02, 2024 10:15 AM AMBULATORY - MEDICINE [facility] Feb 07, 2024 10:00 AM AMBULATORY - NONE [facility] [facility] Feb 10, 2024 11:00 AM AMBULATORY - MEDICINE [facility] Feb 11, 2024 11:00 AM AMBULATORY - MEDICINE [facility] Feb 17, 2024 11:30 AM AMBULATORY - MEDICINE [facility] Feb 21, 2024 10:00 AM AMBULATORY - NONE [facility] [facility] Feb 28, 2024 01:30 PM [facility] Feb 29, 2024 09:00 AM AMBULATORY - NONE . [facility] Mar 06, 2024 09:00 AM AMBULATORY - NONE [facility] [facility] Mar 06, 2024 11:00 AM AMBULATORY - REHAB [facility] Lab Results: +/- 30 days [...] Range Comment Nov 11, 2023 10:[address] [facility] HGA1C Specimen Type: BLOOD No comment entered. Ordering Provider: REED COLLADO Report Released Date/Time: Oct 18, 2023 11:23 AM Reporting Lab: [facility] [address] [place] [address] Performing Lab: [facility] [address] [place] [address] HGA1C 8.8 H 4.0-6.0 Social History: Smoking [...] AM QUIT TOBACCO >7 YEARS AGO [facility] Tobacco Use History This section includes a history of the smoking, or tobacco-related health factors, that were collected on or before the date of the Encounter. The data comes from the [place] facility where the Encounter took place. Date/Time Smoking Status/Tobacco Use Comment F acility Sep 30, 2015 10:12 AM QUIT TOBACCO >7 YEARS AGO [facility] Oct 29, 2014 10:23 AM QUIT TOBACCO >7 YEARS AGO [facility] Dec 27, 2013 01:27 PM QUIT TOBACCO >7 YEARS AGO [facility] Feb 24, 2013 02:01 PM LIFETIME NON-USER OF TOBACCO [facility] Feb 11, 2009 10:09 AM QUIT TOBACCO >7 YEARS AGO [facility] Oct 06, 2006 09:30 AM CURRENT NON-TOBACC O USER-HX OF USE [facility] Oct 06, 2006 09:30 AM TOBACCO TERMINATION STAGE [facility] Advance Directives: All historical and current [...] 2017 ADVANCE DIRECTIVE DISCUSSION ERICK BARDALES [facility] Encounter Notes: All associated encounter notes This section contains the clinical notes associated to the Encounter. Date/Time Encounter Note(s) Provider Source Nov 16, 2023 10:33 AM OPHTHALMOLOGY NOTE : LOCAL TITLE: OPHTHALMOLOGY NOTE [facility] STANDARD TITLE: OPHTHALMOLOGY NOTE DATE OF NOTE: NOV 16, 2023@10:33 ENTRY DATE: NOV 16, 2023@10:35:18 AUTHOR: HAYDEN ESCOTO EXP COSIGNER: URGENCY: STATUS: COMPLETED HVF 24-2 FAST complete OU Results located in Forum for provider review /es/ HAYDEN ESCOTO Wink Cutter Operator Signed: 11/16/2023 10:36 HAYDEN ESCOTO [facility]
--- OUTSIDE RECORDS SUMMARY | 2024-11-17 03:49 | XMS_ITS | Encounter Summary ---
Author Name Department of [place]a Affairs [place] Organization [place] Address [address] [place] [address] Care Team Providers Care Education Manager Name Role Phone MANUEL BAIRD Primary Care [...] PART A Apr 08, 2017 PART A [id number] ASHLEY WALKER PATIENT Selected Encounter This section includes the information on record at [place] for the Encounter. Date/Time Encounter Type Encounter Description Reason Pro vider Source Dec 20, 2023 01:14 PM Outpatient Encounter ADMIN PAT ACTIVTIES (MASNONCT) IHE Encounter Template Text not used by [place] Plan of Treatment: Future Appointments (+ 6 [...] 20 appointments. The data comes from all [place] treatment [facility]. Appointment Date/Time Appointment Type Appointme nt Facility Name Jan 03, 2024 09:00 AM AMBULATORY - NONE [facility] [facility] Jan 24, 2024 08:30 AM AMBULATORY - NONE [facility] Jan 24, 2024 11:30 AM AMBULATORY - MEDICINE [facility] Jan 26, 2024 11:30 AM AMBULATORY - SURGERY [facility] Feb 02, 2024 10:15 AM AMBULATORY - MEDICINE [facility] Feb 07, 2024 10:00 AM AMBULATORY - NONE [facility] [facility] Feb 10, 2024 11:00 AM AMBULATORY - MEDICINE [facility] Feb 11, 2024 11:00 AM AMBULATORY - MEDICINE [facility] Feb 17, 2024 11:30 AM AMBULATORY - MEDICINE [facility] Feb 21, 2024 10:00 AM AMBULATORY - NONE [facility] [facility] Feb 28, 2024 01:30 PM [facility] Feb 29, 2024 09:00 AM [facility]UL[facility] - NONE [facility] Mar 06, 2024 09:00 AM AMBULATORY - NONE [facility] [facility] Mar 06, 2024 11:00 AM AMBULATORY - REHAB [facility] March 15, 2024 09:00 AM AMBULATORY - NONE [facility] March 16, 2024 09:30 AM AMBULATORY - MEDICINE [facility] March 20, 2024 09:30 AM AMBULATORY - MEDICINE [facility] March 21, 2024 09:30 AM AMBULATORY - REHAB MEDICIN [facility] March 27, 2024 08:30 AM AMBULATORY - NONE [facility] [facility] March 28, 2024 10:00 AM AMBULATORY - REHAB [facility] Active, Pending, and Scheduled Orders This [...] BLOOD FIT X1 SCREEN STOOL FECES SP [facility] Social History: Smoking Status (Most current) and [...] 10:34 AM QUIT TOBACCO >7 YEARS AGO [facility] Tobacco Use History This section includes a history of the smoking, or tobacco-related health factors, that were collected on or before the date of the Encounter. The data comes from the [place] facility where the Encounter took place. Date/Time Smoking Status/Tobacco Use Comment F acility Sep 30, 2015 10:12 AM QUIT TOBACCO >7 YEARS AGO [facility] Oct 29, 2014 10:23 AM QUIT TOBACCO >7 YEARS AGO [facility] Dec 27, 2013 01:27 PM QUIT TOBACCO >7 YEARS AGO [facility] Feb 24, 2013 02:01 PM LIFETIME NON-USER OF TOBACCO [facility] Feb 11, 2009 10:09 AM QUIT TOBACCO >7 YEARS AGO [facility] Oct 06, 2006 09:30 AM CURRENT NON-TOBACC O USER-HX OF USE [facility] Oct 06, 2006 09:30 AM TOBACCO TERMINATION STAGE [facility] Advance Directives: All historical and current Section Date Range: From patient's date of to the date document was created. This section includes ALL of a patient's completed or amended [place] Advance and Rescinded Directives. The entries below indicate that a directive exists for the patient, but an actual copy is not included with this document. The data comes from all [place] facilities. Date Advance Directives Provider Source Jan 19, 2017 ADVANCE DIRECTIVE DISCUSSION ERICK BARDALES [facility] [place] [facility] Encounter Notes: All associated encounter notes This section contains the clinical notes associated to the Encounter. Date/Time Encounter Note(s) Provider Source Dec 20, 2023 12:14 PM ADMINISTRATIVE NOT E: LOCAL TITLE: CCC: SCHEDULING ADMINISTRATION STANDARD TITLE: ADMINISTRATIVE NOTE DATE OF NOTE: DEC 20, 2023@12:14:50 ENTRY DATE: DEC 20, 2023@12:14:50 AUTHOR: HAYDEN GUTIERREZ EXP COSIGNER: URGENCY: STATUS: COMPLETED Patient Demographics Patient Name: CHET WALKER Patient Primary Phone: [phone] Patient Primary Address: [address] [place] [address] Patient : 1950 Patient Age: 73 Call Back Number: [phone] Caller/Recipient Relation to Patient: Self Scheduling Cannot Complete Scheduling Action Reason: Restricted / Unavailable Clinic Requested Service(s): Specialty Care Specialty / Community Care Requested: podiatry Patient Expects Callback: Yes Scheduling Note Reason: Cannot Complete Appointment Request Open Request: None of the above Scheduling Note Comments: r/s missed specialty clinic appt. [facility] QI, Dec 08, 2023@10:00 CENTRAL please call to discuss [phone] /es/ HAYDEN GUTIERREZ AMSA Signed: 12/20/2023 12:15 Receipt Acknowledged By: * AWAITING SIGNATURE * TORIN KEMP MELISSA DAWN [facility]
--- OUTSIDE RECORDS SUMMARY | 2024-11-17 03:49 | XMS_ITS | Encounter Summary ---
Author Name [facility] [facility] [place] [facility] [place] Address [address] [place] [address] Care Team Providers Care Planning Engineer Name Role Phone MANUEL BAIRD Primary [...] PART A Apr 08, 2017 PART A [id number] ASHLEY WALKER PATIENT Selected Encounter This section includes the information on record at [place] for the Encounter. Date/Time Encounter Type Encounter Description Reason Provider Source Dec 16, 2023 11:15 AM OFF/OP EST MARCH X REQ PHY/QHP PRIMARY CARE/MEDICINE ICD-10-CM Z23 Encounter for immunization RANI BARROS Encounter Template Text not used by VA Assessments - Encounter Diagnoses This section includes the primary and secondary diagnoses documented for the Encounter. Date/Time Primary/Secondary Diagnosis Diagnosis Name Provider Source Dec 16, 2023 11:05 AM PRIMARY Encounter for immunization RANI BARROS [facility] Plan of Treatment: Future Appointments (+ 6 months) and Future Tests (+/- 45 days) The Plan of Treatment section includes future care activities for the patient from [facility] [place] [facility] This section includes future appointments and future orders which are active, pending or scheduled. Future Appointments This section includes appointments that were scheduled to occur 6 months from the date of the Encounter, up to a maximum of 20 appointments. The data comes from all [place] treatment facilities. Appointment Date/Time Appointment Type Appointme nt Facility Name Jan 03, 2024 09:00 AM AMBULATORY - NONE [facility] Jan 24, 2024 08:30 AM AMBULATORY - NONE [facility] Jan 24, 2024 11:30 AM AMBULATORY - MEDICINE [facility] Jan 26, 2024 11:30 AM AMBULATORY - SURGERY [facility] Feb 02, 2024 10:15 AM AMBULATORY - MEDICINE [facility] Feb 07, 2024 10:00 AM AMBULATORY - NONE [facility] [facility] Feb 10, 2024 11:00 AM AMBULATORY - MEDICINE [facility] Feb 11, 2024 11:00 AM AMBULATORY - MEDICINE [facility] Feb 17, 2024 11:30 AM AMBULATORY - MEDICINE [facility] Feb 21, 2024 10:00 AM AMBULATORY - NONE [facility] [facility] Feb 28, 2024 01:30 PM AMBULATORY - REHAB MEDICIN E [facility] Feb 29, 2024 09:00 AM AMBULATORY - NONE [facility] Mar 06, 2024 09:00 AM AMBULATORY - NONE [place] [facility] Mar 06, 2024 11:00 AM AMBULATORY - REHAB MEDICIN E [facility] March 15, 2024 09:00 AM AMBULATORY - NONE [facility] March 16, 2024 09:30 AM AMBULATORY - MEDICINE [facility] March 20, 2024 09:30 AM AMBULATORY - MEDICINE [facility] March 21, 2024 09:30 AM AMBULATORY - REHAB MEDICIN E [facility] March 27, 2024 08:30 AM AMBULATORY - NONE [place] [facility] March 28, 2024 10:00 AM AMBULATORY - REHAB MEDICIN E [facility] Immunizations: All administered on the encounter date This section contains immunizations associated to the Encounter. Immunization Series Date Issued Reaction Comments COVID-19 (PFIZER), MRNA, LNP -S, PF, LAWANDA-SUCROSE, 30 MCG/0.3 ML (AGES 12+ YEARS) 1 Dec 16, 2023 Social History: Smoking Status (Most current) and Tobacco Use (All prior to encounter date) This section includes the most current, and the historical, smoking and tobacco- related health factors from the [facility] where the Encounter took place. Current Smoking Status This section includes the most current smoking, or tobacco-related health factor, from the [place] facility where the Encounter took place. Date/Time Current Smoking Status Comment Radhika ity March 22, 2023 10:00 AM [place]-TOBACCO FORMER USER [facility] Tobacco Use History This section includes a history of the smoking, or tobacco-related health factors, that were collected on or before the date of the Encounter. The data comes from the [place] facility where the Encounter took place. Date/Time Smoking Status/Tobacco Use Comment F acmichael March 22, 2023 10:00 AM VA-TOBACCO QUIT 15 YRS OR MORE [facility] Jan 29, 2022 03:00 PM VA-TOBACCO FORMER USER [facility] Jan 29, 2022 03:00 PM VA-TOBACCO QUIT 15 YRS OR MORE [facility] Feb 07, 2019 04:17 PM VA-TOBACCO FORMER USER [facility] Feb 07, 2019 04:17 PM VA-TOBACCO QUIT 15 YRS OR MORE [facility] March 09, 2018 12:36 PM QUIT TOBACCO >7 YEARS AGO [facility] Aug 05, 2017 02:36 PM QUIT TOBACCO >7 YEARS AGO [facility] Advance Directives: All historical and current Section Date Range: From patient's date of to the date document was created. This section includes ALL of a patient's completed or amended [place] Advance and Rescinded Directives. The entries below indicate that a directive exists for the patient, but an actual copy is not included with this document. The data comes from all [facility]. Date Advance Directives Provider Source Jan 19, 2017 ADVANCE DIRECTIVE DISCUSSION ERICK BARDALES [facility] Encounter Notes: All associated encounter notes This section contains the clinical notes associated to the Encounter. Date/Time Encounter Note(s) Provider Source Dec 16, 2023 10:49 AM NURSING NOTE: LOCAL TITLE: V15 PACT FACE TO FACE NOTE ST STANDARD TITLE: NURSING NOTE DATE OF NOTE: DEC 16, 2023@10:49 ENTRY DATE: DEC 16, 2023@10:50 AUTHOR: RANI BARROS EXP COSIGNER: URGENCY: STATUS: COMPLETED Nurse Visit: Patient Identifiers : Full Name Date of Reason for visit: COVID19 vaccine Mode of Arrival: Ambulatory Allergy Review: TRAMADOL Allergy list reviewed and remains current. Contact provided Primary Care phone number and encouraged to call if any questions or concerns. Review that after hours nurse line [phone] and emergency room are available 31/05 for patient use. COVID-19 Immunization: Pfizer Monovalent (Comirnaty) Administered: COVID-19 (PFIZER), MRNA, LNP-S, PF, LAWANDA-SUCROSE, 30 MCG/0.3 ML (AGES 12+ YEARS) Date Administered: Dec 16, 2023 10:52 Series: Series 1 Senior Systems Software Engineer: [employer] Lot: [id number] Exp Date: April 07, 2024 Admin Route/Site: INTRAMUSCULAR/LEFT DELTOID Dosage: 0.3mL Vaccine Information Statement(s): COVID-19 MRNA VACCINE (12+ YRS) VACCINE VIS Aug 26, 2023 ([place]) Order By: Policy Administered By: Rani Barros Vaccine administered without complications. The patient was advised to remain in the facility for 15 minutes post vaccination. /shen/ Rani Barros,MSN, RN, Esq. REGISTERED NURSE Signed: 12/16/2023 10:57 RANI BARROS [facility]
--- OUTSIDE RECORDS SUMMARY | 2024-11-17 03:49 | XMS_ITS | Encounter Summary ---
Author Name [facility] [place] Organization [place] Address [address] [place] [address] Care Team Providers Care Banking Specialist Name Role Phone MANUEL BAIRD Primary Care [...] PART A Apr 08, 2017 PART A [id number] ASHLEY WALKER PATIENT Selected Encounter This section includes the information on record at [place] for the Encounter. Date/Time Encounter Type Encounter Description Reason Pro vider Source Nov 11, 2023 09:37 AM Outpatient Encounter PHYSICAL THERAPY IHE Encounter [...] 20 appointments. The data comes from all [place] treatment [facility]. Appointment Date/Time Appointment Type Appointme nt Facility Name Nov 12, 2023 11:00 AM AMBULATORY - NONE [facility] Nov 15, 2023 09:00 AM AM[facility]ORY - NONE [place] [facility] Nov 16, 2023 10:30 AM AMBULATORY - SURGERY [facility] Nov 18, 2023 09:30 AM AMBULATORY - MEDICINE [facility] Nov 29, 2023 08:30 AM AMBULATORY - NONE [place] [facility] Dec 06, 2023 09:00 AM AMBULATORY - NONE [place] [facility] Dec 08, 2023 10:00 AM AMBULATORY - SUR[facility]ERY [facility] Dec 16, 2023 09:30 AM AMBULATORY - MEDICINE [facility] Dec 16, 2023 11:15 AM AMBULATORY - MEDICINE [facility] Jan 03, 2024 09:00 AM AMBULATORY - NONE [place] [facility] Jan 24, 2024 08:30 AM AMBULATORY - NONE [place] [facility] Jan 24, 2024 11:30 AM AMBULATORY - MEDICINE [facility] Jan 26, 2024 11:30 AM AMBULATORY - SURGERY [facility] Feb 02, 2024 10:15 AM AMBULATORY - MEDICINE [facility] Feb 07, 2024 10:00 AM AMBULATORY - NONE [place] [facility] Feb 10, 2024 11:00 AM AMBULATORY - MEDICINE [facility] Feb 11, 2024 11:00 AM AMBULATORY - MEDICINE [facility] Feb 17, 2024 11:30 AM AMBULATORY - MEDICINE [facility] Feb 21, 2024 10:00 AM AMBULATORY - NONE [facility] [facility] Feb 28, 2024 01:30 PM AMBULATORY - REHAB MEDICIN E [facility] Lab Results: +/- 30 days of the encounter This section includes the Chemistry and Hematology Lab Results on record with [place] for the patient. Radiology Reports and Pathology Reports are provided separately, in subsequent sections. Lab Results This section contains the Chemistry/Hematology Results that were resulted 30 days before or 30 daysafter the date of the Encounter. Date/Time Source Result Type Result - Unit Interpretation Reference Range Comment Nov 11, 2023 10:38 AM [facility] HGA1C Specimen Type: BLOOD No comment entered. Ordering Provider: REED COLLADO Report Released Date/Time: Oct 18, 2023 11:23 AM Reporting Lab: [facility] [address] [facility] [id number] Performing Lab: [facility] [address] [facility] [id number] HGA1C 8.8 H 4.0-6.0 Social History: Smoking Status (Most current) and Tobacco Use (All prior to encounter date) This section includes the most current, and the historical, smoking and tobacco- related health factors from the [place] facility where the Encounter took place. Current Smoking Status This section includes the most current smoking, or tobacco-related health factor, from the [place] facility where the Encounter took place. Date/Time Current Smoking Status Comment Radhika angelesy Aug 11, 2016 10:34 AM QUIT TOBACCO >7 YEARS AGO [facility] Tobacco Use History This section includes a history of the smoking, or tobacco-related health factors, that were collected on or before the date of the Encounter. The data comes from the [place] facility where the Encounter took place. Date/Time [...] AM CURRENT NON-TOBACC O USER-HX OF USE [facility] Oct 06, 2006 09:30 AM TOBACCO TERMINATION STAGE [facility] Advance Directives: All historical and current Section Date Range: From patient's date of to the date document was created. This section includes ALL of a patient's completed or amended [place] Advance and Rescinded Directives. The entries below indicate that a directive exists for the patient, but an actual copy is not included with this document. The data comes from all [place] facilities. Date Advance Directives Provider Source Jan 19, 2017 ADVANCE DIRECTIVE DISCUSSION ERICK BARDALES [facility] Encounter Notes: All associated encounter notes This section contains the clinical notes associated to the Encounter. Date/Time Encounter Note(s) Provider Source Nov 11, 2023 09:37 AM PHYSICAL MEDICINE REHAB EDUCATION NOTE: LOCAL TITLE: PT EQUIPMENT ST STANDARD TITLE: PHYSICAL MEDICINE REHAB EDUCATION NOTE DATE OF NOTE: NOV 11, 2023@09:37 ENTRY DATE: NOV 11, 2023@09:38:01 AUTHOR: ZO FLETCHER EXP COSIGNER: URGENCY: STATUS: COMPLETED Physical Therapy Equipment Note Primary Care Provider: MANUEL BAIRD Subjective: Pt came/called department stating that he lost his SPC while at the store, no recent loss of balance or falls. Requesting replacement Pt's goal: To acquire the proper medical equipment. Objective: Patient Education 1. Was the patient ready to learn? [ x] Yes [ ] No (If no, please explain) 2. Topics covered with patient, sizing SPC to appropriate height. Runge sized to his preferred height anway. 3. Teaching method: [ x] 1:1 counseling [ ] other (please explain) 4. Does patient's response to teaching indicate that learning has occurred? [ x] Yes [ ] No (please describe further plans for education) Patient (I) verbalizing use of maintenance of all equipment requested/issued. Runge demos independent use with 2 point gait pattern of SPC. No further training needed as demos independence with use. Equipment: Patient has had the following equipment issued/ordered: SPC Assessment: Goal of (I) with use of/maintenance of all equipment issued/ordered - achieved. Barriers: None. Plan: Continue to keep in contact with patient on a PRN basis either in the department or by phone for equipment matters. /shen/ ZO FLETCHER PT, DPT Signed: 11/11/2023 09:50 ZO FLETCHER [facility]
--- OUTSIDE RECORDS SUMMARY | 2024-11-17 03:49 | XMS_ITS | Encounter Summary ---
Author Name [facility] [place] Address [address] [place] [address] Care Team Providers Care Clothes Model Name Role Phone MANUEL BAIRD Primary Care [...] PART A Apr 08, 2017 PART A [id number] [phone] ASHLEY WALKER PATIENT Selected Encounter This section includes the information on record at [place] for the Encounter. 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 Date/Time Primary/Secondary Diagnosis Diagnosis Name Provider Source Dec 17, 2023 09:11 AM PRIMARY Type 2 diabetes w diabetic autonomic (poly)neuropathy JULIA CISNEROS [facility] Plan of Treatment: Future Appointments (+ 6 months) and Future Tests (+/- 45 days) The Plan of Treatment section includes future care activities for the patient [facility] [place] [facility] This section includes future appointments and future orders which are active, pending or scheduled. Future Appointments This section includes appointments that were scheduled to occur 6 months from the date of the Encounter, up to a maximum of 20 appointments. The data comes from all [facility]. Appointment Date/Time Appointment Type Appointme nt Facility Name Jan 03, 2024 09:00 AM [facility]ORY - NONE [facility] [facility] Jan 24, 2024 08:30 AM AMBULATORY - NONE [place] [facility] Jan 24, 2024 11:30 AM AMBULATORY - MEDICINE [facility] Jan 26, 2024 11:30 AM AMBULATORY - SURGERY [facility] Feb 02, 2024 10:15 AM AMBULATORY - MEDICINE [facility] Feb 07, 2024 10:00 AM AMBULATORY - NONE [place] [facility] Feb 10, 2024 11:00 AM AMBULATORY - MEDICINE [facility] Feb 11, 2024 11:00 AM AMBULATORY - MEDICINE [facility] Feb 17, 2024 11:30 AM AMBULATORY - MEDICINE [facility] Feb 21, 2024 10:00 AM AMBULATORY - NONE [place] [facility] Feb 28, 2024 01:30 PM AMBULATORY - REHAB MEDICIN [facility] Feb 29, 2024 09:00 AM AMBULATORY - NONE [facility] Mar 06, 2024 09:00 AM AMBUL[facility]ORY - NONE [place] [facility] Mar 06, 2024 11:00 AM AMBULATORY - REHAB MEDICIN E [facility] March 15, 2024 09:00 AM AMBULATORY - NONE [facility] March 16, 2024 09:30 AM AMBULATORY - MEDICINE [facility] March 20, 2024 09:30 AM AMBULATORY - MEDICINE [facility] March 21, 2024 09:30 AM AMBULATORY - REHAB MEDICIN E [facility] March 27, 2024 08:30 AM AMBUL[facility]ORY - NONE [place] [facility] March 28, 2024 10:00 AM AMBULATORY - REHAB MEDICIN E [facility] Social History: Smoking Status (Most current) and Tobacco Use (All prior to encounter date) This section includes the most current, and the historical, smoking and tobacco- related health factors from the [place] facility where the Encounter took place. Current Smoking Status This section includes the most current smoking, or tobacco-related health factor, from the [place] facility where the Encounter took place. Date/Time Current Smoking Status Comment Radhika ity Aug 11, 2016 10:34 AM QUIT TOBACCO >7 YEARS AGO [facility] Tobacco Use History This section includes a history of the smoking, or tobacco-related health factors, that were collected on or before the date of the Encounter. The data comes from the [place] facility where the Encounter took place. Date/Time Smoking Status/Tobacco Use Comment F acility Sep 30, 2015 10:12 AM QUIT TOBACCO >7 YEARS AGO [facility] Oct 29, 2014 10:23 AM QUIT TOBACCO >7 YEARS AGO [facility] Dec 27, 2013 01:27 PM QUIT TOBACCO >7 YEARS AGO [facility] Feb 24, 2013 02:01 PM LIFETIME NON-USER OF TOBACCO [facility] Feb 11, 2009 10:09 AM QUIT TOBACCO >7 YEARS AGO [facility] Oct 06, 2006 09:30 AM CURRENT NON-TOBACC O USER-HX OF USE [facility] Oct 06, 2006 09:30 AM TOBACCO TERMINATION STAGE [facility] Advance Directives: All historical and current Section Date Range: From patient's date of to the date document was created. This section includes ALL of a patient's completed or amended [place] Advance and Rescinded Directives. The entries below indicate that a directive exists for the patient, but an actual copy is not included with this document. The data comes from all [facility]. Date Advance Directives Provider Source Jan 19, 2017 ADVANCE DIRECTIVE DISCUSSION ERICK BARDALES [facility] Encounter Notes: All associated encounter notes This section contains the clinical notes associated to the Encounter. Date/Time Encounter Note(s) Provider Source Dec 17, 2023 08:58 AM PHARMACY CONSULT: LOCAL TITLE: PHARMACY PRIOR APPROVAL CONSULT ST STANDARD TITLE: PHARMACY CONSULT DATE OF NOTE: DEC 17, 2023@08:58 ENTRY DATE: DEC 17, 2023@08:58:52 AUTHOR: JULIA CISNEROS EXP COSIGNER: URGENCY: STATUS: COMPLETED The medical record has been reviewed with regard to this prior authorization drug request. Medication requested: GLUCOSE SENSOR FREESTYLE RADHIKA 3 Medication indication: DM Medical history relevant to this request: - Pt is a 73 yo male w/ DM followed by [facility] - Basal/bolus insulin, anticipate need for increased bolus frequency - Concern for hypoglycemia per CPP - Compliance with fingersticks - Education completed at 12/16/23 visit - Prosthetics order entered for reader, please note rolling backorder may cause delay The request is approved. Order entered for sensors x 6 months as requested. Document sensor usage prior to renewal. - No formulary-preferred alternative TIME REVIEWING CHART: 10 minutes /shen/ JULIA CISNEROS Clinical Transfer Worker Signed: 12/17/2023 09:11 JULIA CISNEROS [facility]
--- OUTSIDE RECORDS SUMMARY | 2024-11-17 03:49 | XMS_ITS | Encounter Summary ---
Author Name [facility] [place] [facility] [place] [facility] [place] Address [address] [place] [address] Care Team Providers Care Academic Intern Name Role Phone MANUEL BAIRD Primary Care [...] PART A Apr 08, 2017 PART A [id number] ASHLEY FINK PATIENT Selected Encounter This section includes the information on record at [place] for the Encounter. 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 This section includes future appointments and future orders which are active, pending or scheduled. Future Appointments This section includes appointments that were scheduled to occur 6 months from the date of the Encounter, up to a maximum of 20 appointments. The data comes from all [place] [facility]. Appointment Date/Time Appointment Type Appointme nt Facility Name Jan 03, 2024 09:00 AM AMBULATORY - NONE [facility] Jan 24, 2024 08:30 AM AMBULATORY - NONE [facility] Jan 24, 2024 11:30 AM AMBULATORY - MEDICINE [facility] Jan 26, 2024 11:30 AM AMBULATORY - SURGERY [facility] Feb 02, 2024 10:15 AM AMBULATORY - MEDICINE [facility] Feb 07, 2024 10:00 AM AMBULATORY - NONE [facility] Feb 10, 2024 11:00 AM AMBULATORY - MEDICINE [facility] Feb 11, 2024 11:00 AM AMBULATORY - MEDICINE [facility] Feb 17, 2024 11:30 AM AMBULATORY - MEDICINE [facility] Feb 21, 2024 10:00 AM AMBULATORY - NONE [facility] Feb 28, 2024 01:30 PM AMBULATORY - REHAB MEDICIN E [facility] Feb 29, 2024 09:00 AM AMBULATORY - NONE [facility] Mar 06, 2024 09:00 AM AMBULATORY - NONE [facility] Mar 06, 2024 11:00 AM AMBULATORY - REHAB MEDICIN E [facility] March 15, 2024 09:00 AM AMBULATORY - NONE [facility] March 16, 2024 09:30 AM AMBULATORY - MEDICINE [facility] March 20, 2024 09:30 AM AMBULATORY - MEDICINE [facility] March 21, 2024 09:30 AM AMBULATORY - REHAB MEDICIN E [facility] March 27, 2024 08:30 AM AMBULATORY - NONE [facility] March 28, 2024 10:00 AM AMBULATORY - REHAB MEDICIN E [facility] Social History: Smoking Status (Most current) and Tobacco Use (All prior to encounter date) This section includes the most current, and the historical, smoking and tobacco- related health factors from the [facility] where the Encounter took place. Current Smoking Status This section includes the most current smoking, or tobacco-related health factor, from the [place] facility where the Encounter took place. Date/Time Current Smoking Status Comment Facil ity March 22, 2023 10:00 AM [facility]BACCO [facility]ER [facility] Tobacco Use History This section includes a history of the smoking, or tobacco-related health factors, that were collected on or before the date of the Encounter. The data comes from the [facility] where the Encounter took place. Date/Time Smoking Status/Tobacco Use Comment F acmichael March 22, 2023 10:00 AM [place]-TOBACCO QUIT [facility] YRS OR MORE [facility] Jan 29, 2022 03:00 PM [facility]BACCO [facility]ER [facility] Jan 29, 2022 03:00 PM VA-TOBACCO QUIT [facility] YRS OR MORE [facility] Feb 07, 2019 04:17 PM [facility]ACCO [facility] Feb 07, 2019 04:17 PM [place]-TOBACCO QUIT 15 YRS OR MORE [facility] March 09, 2018 12:36 PM QUIT TOBACCO [facility]7 [facility]ARS AGO [facility] Aug 05, 2017 02:36 PM QUIT TOBACCO >7 [facility]ARS AGO [facility] Advance Directives: All historical and current Section Date Range: From patient's date of to the date document was created. This section includes ALL of a patient's completed or amended [place] Advance and Rescinded Directives. The entries below indicate that a directive exists for the patient, but an actual copy is not included with this document. The data comes from all [facility]. Date Advance Directives Provider Source Jan 19, 2017 ADVANCE DIRECTIVE DISCUSSION ERICK BARDALES [facility] Encounter Notes: All associated encounter notes This section contains the clinical notes associated to the Encounter. Date/Time Encounter Note(s) Provider Source Dec 16, 2023 09:19 AM INTERNAL MEDICINE CLINICAL PHARMACIST MEDICATION MGT NOTE: LOCAL TITLE: CLINICAL PHARMACIST NOTE STL STANDARD TITLE: INTERNAL MEDICINE CLINICAL PHARMACIST MEDICATION DATE OF NOTE: DEC 16, 2023@09:19 ENTRY DATE: DEC 16, 2023@09:19:27 AUTHOR: REED COLLADO EXP COSIGNER: URGENCY: STATUS: COMPLETED CLINICAL PHARMACY FOLLOW-UP Subjective: CHET FINK is a 73 MALE who presents to clinic for follow up on DM. PMH: 1) Asthma (SNOMED CT 508296901) 2) Gastro-esophageal reflux disease (SNOMED CT 889134402) 3) Peptic Ulcer Disease * (ICD-9-CM 533.90) 4) Hypertension (SNOMED CT 82954439) 5) Pituitary Neoplasms (ICD-9-CM 194.3) 6) Hyperlipidemia (SNOMED CT 08056877) 7) Erectile dysfunction associated with type 2 diabetes mellitus 8) Osteoarthritis of knee 9) Diabetes mellitus with neuropathy 10) Low back pain 11) Obesity 12) Patellofemoral syndrome of right knee 13) History of left total knee replacement 14) History of arthroplasty of right knee During the last contact with vet, the following changes were made: --Continue metformin SA 500mg to 2 tabs BID as directed. --Continue semaglutide 1mg once a week. --DECREASE glargine 300 units/ml to 90 units daily --START insulin aspart 6 units before dinner During current visit: Starting to have tingling in fingers of both hands. denies pain, but tingly and annoying . Dietary/Lifestyle/Social History modifications made: -- whatever I eat , half way thru I am full Drinks: not a lot of water, diet soda 1-2 per day EtOH: few beers on rare occasion, maybe once per year Tobacco: quit >40 years ago ROS: DM (-) hypoglycemia symptoms or values <80 mg/dL (-) hyperglycemia symptoms (+) tingling/numbness - in feet and now hands (-) N/V/D/C HLD (-) CP (-) muscle pain/cramps HTN (-) orthostasis (-) edema (-) cough, SANCHES Objective: Allergies: TRAMADOL Medications: [...] ACTIVE MOUTH EVERY EVENING FOR HIGH CHOLESTEROL not taking 4) DULOXETINE HCL 60MG EC CAP TAKE ONE CAPSULE BY MOUTH ACTIVE ONCE A DAY FOR NERVE PAIN DO NOT ABRUPTLY DISCONTINUE MEDICATION. only as needed 5) GLUCOSE 4GM CHEW TAB CHEW AND SWALLOW FOUR TABLETS BY ACTIVE MOUTH NEEDED FOR LOW BLOOD SUGAR REPEAT DOSE IF HYPOGLYCEMIA CONTINUES 15 MINUTES AFTER THE FIRST DOSE. 6) HCTZ 12.5/LISINOPRIL 20MG TAB TAKE 2 TABLETS BY MOUTH ACTIVE EVERY MORNING TO LOWER BLOOD PRESSURE not taking 7) INSULIN,ASPART(EQV-NOVLG)100 UN/ML FLXPEN INJECT 6 ACTIVE UNITS UNDER THE SKIN ONCE A DAY BEFORE DINNER FOR DIABETES ADMINISTER 10 MINUTES BEFORE FOOD DIRECTED. REFRIGERATE UN-OPENED PENS. DISCARD CARTRIDGE 28 DAYS AFTER OPENING. 8) INSULIN,GLARG(TOUJEO MAX) 300 UNT/ML 3ML INJECT 90 HOLD UNITS UNDER THE SKIN ONCE A DAY [...] ACTIVE DAILY NEEDED FOR MUSCLE SPASM 12) MULTIVITAMIN CAP/TAB TAKE 1 TABLET BY MOUTH ONCE A ACTIVE DAY FOR NUTRITION/DIETARY SUPPLEMENTATION 13) SEMAGLUTIDE 1MG/0.75ML INJ PEN 3ML INJECT 1MG UNDER ACTIVE THE SKIN EVERY WEEK FOR DIABETES Inactive Outpatient Medications Status 1) HYDROPHILIC (EQV EUCERIN) TOP CREAM APPLY LIBERALLY TO AFFECTED AREA(S) ONCE A DAY (EXTERNAL USE ONLY) DRY BETWEEN TOES AFTER APPLYING. 2) OMEPRAZOLE 20MG EC CAP TAKE ONE CAPSULE BY MOUTH EVERY MORNING TO LOWER STOMACH ACID. TAKE 30 MINUTES PRIOR TO FOOD. Active Non-VA Medications Status 1) Non-VA NAPROXEN NA 220MG TAB 220MG BY MOUTH ACTIVE NEEDED meds: 1. Pregabalin 200mg BID *takes as needed OTC/Non-VA meds: as above Medication reconciliation completed: YES Adherence to above medications: YES to insulin and DM meds, not taking BP or lipid meds and No excuse why Labs: CMP: SODIUM 138 mEq/L 03/22/2023 12:00 [...] data found Self-Monitoring of Blood Glucose (SMBG): Name: Chet Fink : 1950 ID: [id number] Information from [facility] on 12/16/2023 Patient Name: Chet Fink Date Range: 12/03/2023 - 12/16/2023 bG values are displayed in mg/dL # of tests 14 Average 144 SD 18 Highest 175 Lowest 111 Avg tests/day 1 # HI 0 # LO 0 <70 0.0% 70-180 100.0% >180 0.0% Hypos(<69) 0 Date Range: 12/03/2023 - 12/16/2023 bG values are displayed in mg/dL 00:00- 05:30- 08:00- 11:00- 12:30- 17:00- 18:30- 21:30- 05:30 08:00 11:00 12:30 17:00 18:30 21:30 00:00 12/03/2023 137 12/04/2023 159 12/05/2023 111 12/06/2023 149 12/07/2023 160 12/08/2023 127 Ann-Marie 12/09/2023 139 12/10/2023 132 12/11/2023 136 12/12/2023 175 12/13/2023 123 12/14/2023 148 12/15/2023 152 Ann-Marie 12/16/2023 168 Date Range: 12/03/2023 - 12/16/2023 bG values are displayed in mg/dL 00:00- 05:30- 08:00- 11:00- 12:30- 17:00- 18:30- 21:30- 05:30 08:00 11:00 12:30 17:00 18:30 21:30 00:00 # of tests 0 0 11 2 1 0 0 0 Average 0 0 144 138 159 0 0 0 SD 19.2 15.6 0 Hi/Lo 0 0 0 0 0 0 0 0 Date Range: 12/03/2023 - 12/16/2023 bG values are displayed in mg/dL End of information from [facility] BP last visit:138/82 (11/18/2023 09:50) Pulse last visit: 82 (11/18/2023 09:45) Manual BP seated, rested: 128/66 mmHg Pulse: 50 bpm Assessment/Plan: 1) Diabetes Goal A1c <7-8%, FBG 80-130, post-prandial BG <180, per VA/DoD guidelines --Uncontrolled per a1c due to non compliance. Taking DM meds now. Denies ADRs to meds, denies lows or symptoms of highs. Discussed jennifer again, and the ability to learn from food and make safer insulin adjustments. Pt agreed. Reviewed basics (sensor placement/duration), how to view readings, arrows) --Continue metformin SA 500mg to 2 tabs BID as directed. --Continue semaglutide 1mg once a week. --Continue 300 units/ml 90 units daily --Continue aspart 6 units before dinner. --Instructed vet to check SMBGs BID, need PM readings --Educated vet on hypoglycemia symptoms and appropriate treatment and when to call clinic or go to emergency room. Call for lows <70. 2) Lipids - Goal is treatment with moderate-intensity statin per VADoD guidelines; moderate to high-intensity statin per ACC/AHA guidelines. --TAKE atorvastatin. Reviewed CV risk reduction 3) HTN - Goal <130/80 mmHg per 2017 AHA guidelines; <140/90 mmHg per JNC8 guidelines; <140/90 >60 + DM per VADoD guidelines. --Controlled on check but nit taking meds regular --TAKE HCTZ/lisinopril to 12.5/20mg 2 tabs daily for now 4) Med Rec: encouraged compliance, pt will stop and get AM/PM pill box, declines VA 4x/day pill box 5) Neuropathy: in feet and now hands, not taking meds regular but as needed. Adjusted to take both med as directed, discuss with PCP if not working at that time. -Educated vet on risks/benefits of new medication, new labs. -Education provided on nonpharmacologic ways to improve DM/HLD/HTN (including lifestyle management/dietary/physical activity) specific for the vet's needs. -Star Tannery verbalized understanding to all plans discussed today. Questions were answered to vet's satisfaction. Time spent with vet: 40 minutes Additional time spent reviewing chart/documentation: 6 min RTC: 1 months (Pt advised to stop at lead front end developer to schedule follow up appointment) Medication Reconciliation Opt STL: I have reviewed the patient's medication list (including active outpatient prescriptions dispensed from this VA (local) and dispensed from another VA or DoD facility (remote) as well as inpatient orders (local pending and active), local clinic medications, locally documented non-VA medications, and local prescriptions that have or been discontinued in the past 90 days.) with the patient and/or his/her care-remote sensing advisor. Handwritten corrections, additions and/or deletions were made to the list, as appropriate. Corrected Outpatient Medication List was provided to the patient/caregiver. Influenza Immunization: The patient declines to receive the recommended dose of seasonal influenza vaccine. Immunization: INFLUENZA, UNSPECIFIED FORMULATION Refusal Reason: PATIENT DECISION Patient refuses all immunization(s) in the FLU group Date Documented: 12/16/23 09:49 PBM PharmD Pharmacotherapy Rem V12: PHARMACIST INTERVENTIONS: TYPE 2 DIABETES MELLITUS Medication monitoring, no dosage change required, continue to monitor and assess Address adherence Medication monitoring or diagnostic evaluation (e.g., other labs, EKG) Order, recommend, and/or administer immunization(s) /es/ REED COLLADO PHARM.D., [facility] Signed: 12/16/2023 10:43 [facility]
--- OUTSIDE RECORDS SUMMARY | 2024-11-17 03:49 | XMS_ITS | Encounter Summary ---
Author Name [facility] [place] Organization [place] Address [address] [place] [address] Care Team Providers Care Director Of Outpatient Services Name Role Phone MANUEL BAIRD Primary Care [...] PART A Apr 08, 2017 PART A [id number] ASHLEY FINK PATIENT Selected Encounter This section includes the information on record at [place] for the Encounter. Date/Time Encounter Type Encounter Description Reason Pro vider Source Dec 08, 2023 02:27 PM Outpatient Encounter ADMIN PAT ACTIVTIES (MASNONCT) IHE Encounter Template Text not used by [place] Plan of Treatment: Future Appointments (+ 6 [...] 20 appointments. The data comes from all [facility]. Appointment Date/Time Appointment Type Appointme nt Facility Name Dec 16, 2023 09:30 AM AMBULATORY - MEDICINE [facility] Dec 16, 2023 11:15 AM AMBULATORY - MEDICINE [facility] Jan 03, 2024 09:00 AM AMBULATORY - NONE [facility] Jan 24, 2024 08:30 AM AMBULATORY - NONE [facility] Jan 24, 2024 11:30 AM AMBULATORY - MEDICINE [facility] Jan 26, 2024 11:30 AM AMBULATORY - SURGERY [facility] Feb 02, 2024 10:15 AM AMBULATORY - MEDICINE [facility] Feb 07, 2024 10:00 AM AMBULATORY - NONE [facility] Feb 10, 2024 11:00 AM AMBULATORY - MEDICINE [facility] Feb 11, 2024 11:00 AM AMBULATORY - MEDICINE [facility] Feb 17, 2024 11:30 AM AMBULATORY - MEDICINE [facility] Feb 21, 2024 10:00 AM AMBULATORY - NONE [facility] Feb 28, 2024 01:30 PM AMBULATORY - REHAB MEDICIN E [facility] Feb 29, 2024 09:00 AM AMBULATORY - NONE [facility] Mar 06, 2024 09:00 AM AMBULATORY - NONE [facility] Mar 06, 2024 11:00 AM AMBULATORY - REHAB MEDICIN E [facility] March 15, 2024 09:00 AM AMBULATORY - NONE [facility] March 16, 2024 09:30 AM AMBULATORY - MEDICINE [facility] March 20, 2024 09:30 AM AMBULATORY - MEDICINE [facility] March 21, 2024 09:30 AM AMBULATORY - REHAB MEDICIN [facility] Lab Results: +/- 30 days [...] Nov 11, 2023 10:38 AM [facility] HGA1C Specimen Type: BLOOD No comment entered. Ordering Provider: REED COLLADO Report Released Date/Time: Oct 18, 2023 11:23 AM Reporting Lab: [facility] [address] [facility] [id number] Performing Lab: [facility] [address] [facility] [id number] HGA1C 8.8 H 4.0-6.0 Social History: Smoking [...] AM QUIT TOBACCO >7 YEARS AGO [facility] Tobacco Use History This section includes a history of the smoking, or tobacco-related health factors, that were collected on or before the date of the Encounter. The data comes from the [place] facility where the Encounter took place. Date/Time Smoking Status/Tobacco Use Comment Juan acmichael Sep 30, 2015 10:12 AM QUIT TOBACCO >7 YEARS AGO [facility] Oct 29, 2014 10:23 AM QUIT TOBACCO >7 YEARS AGO [facility] Dec 27, 2013 01:27 PM QUIT TOBACCO >7 YEARS AGO [facility] Feb 24, 2013 02:01 PM LIFETIME NON-USER OF TOBACCO [facility] Feb 11, 2009 10:09 AM QUIT TOBACCO >7 YEARS AGO [facility] Oct 06, 2006 09:30 AM CURRENT NON-TOBACC O USER-HX OF USE [facility] Oct 06, 2006 09:30 AM TOBACCO TERMINATION STAGE [facility] Advance Directives: All historical and current Section Date Range: From patient's date of to the date document was created. This section includes ALL of a patient's completed or amended [place] Advance and Rescinded Directives. The entries below indicate that a directive exists for the patient, but an actual copy is not included with this document. The data comes from all [place] facilities. Date Advance Directives Provider Source Jan 19, 2017 ADVANCE DIRECTIVE DISCUSSION ERICK BARDALES [facility] Encounter Notes: All associated encounter notes This section contains the clinical notes associated to the Encounter. Date/Time Encounter Note(s) Provider Source Dec 08, 2023 02:27 PM PHYSICIAN LETTERS: LOCAL TITLE: NO SHOW LETTER STL STANDARD TITLE: PHYSICIAN LETTERS DATE OF NOTE: DEC 08, 2023@14:27 ENTRY DATE: DEC 08, 2023@14:27:30 AUTHOR: JACQUELIN ALVAREZ EXP COSIGNER: URGENCY: STATUS: COMPLETED [facility] [address] [place] [address] DEC 08, 2023 ABIEL FINK [address] [place], [place] [address] Dear Abiel Fink, Thank you for choosing the [facility] as your primary choice for health care. As a partner in your health care, we are attempting to contact you because our records indicate that you did not make it to your scheduled appointment, and we would like to re-schedule. Please call us at [phone], [phone] to speak to us regarding making an appointment in the [facility] clinic. Your good health is important [...] inquire about scheduling. Sincerely, JACQUELIN ALVAREZ ADVANCED PIN CLEANER ABIEL FINK [facility]
--- OUTSIDE RECORDS SUMMARY | 2024-11-17 03:49 | XMS_ITS | Encounter Summary ---
Author Name [facility] [facility] [facility] [place] Address [address] [place] [address] Care Team Providers [employer] Lab Technician Name Role Phone MANUEL BAIRD Primary [...] PART A Apr 08, 2017 PART A [id number] [phone] ASHLEY WALKER PATIENT Selected Encounter This section includes the information on record at [place] for the Encounter. 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 Date/Time Primary/Secondary Diagnosis Diagnosis Name Provider Source Nov 18, 2023 10:20 AM PRIMARY Type 2 diabetes w diabetic autonomic (poly)neuropathy GARRET BANUELOS [facility] Nov 18, 2023 10:20 AM SECONDARY Essential (primary) hypertension GARERT BANUELOS [facility] Nov 18, 2023 10:20 AM SECONDARY Hyperlipidemia, unspecified GARRET BANUELOS [facility] Plan of Treatment: Future Appointments (+ 6 months) and Future Tests (+/- 45 days) The Plan of Treatment section includes future care activities for the patient from all [place] [facility]. This section includes future appointments and future orders which are active, pending or scheduled. Future Appointments This section includes appointments that were scheduled to occur 6 months from the date of the Encounter, up to a maximum of 20 appointments. The data comes from all [facility]. Appointment Date/Time Appointment Type Appointme nt Facility Name Nov 29, 2023 08:30 AM AMBULATORY - NONE [facility] Dec 06, 2023 09:00 AM AMBULATORY - NONE [facility] Dec 08, 2023 10:00 AM AMBULATORY - SURGERY [facility] Dec 16, 2023 09:30 AM AMBULATORY - MEDICINE [facility] Dec 16, 2023 11:15 AM AMBULATORY - MEDICINE [facility] Jan 03, 2024 09:00 AM AMBULATORY - NONE [facility] Jan 24, 2024 08:30 AM AMBULATORY - NONE [facility] Jan 24, 2024 11:30 AM AMBULATORY - MEDICINE [facility] Jan 26, 2024 11:30 AM AMBULATORY - SURGERY [facility] Feb 02, 2024 10:15 AM AMBULATORY - MEDICINE [facility] Feb 07, 2024 10:00 AM AMBULATORY - NONE [facility] Feb 10, 2024 11:00 AM AMBULATORY - MEDICINE [facility] Feb 11, 2024 11:00 AM AMBULATORY - MEDICINE [facility] Feb 17, 2024 11:30 AM AMBULATORY - MEDICINE [facility] Feb 21, 2024 10:00 AM AMBULATORY - NONE [facility] Feb 28, 2024 01:30 PM AMBULATORY - REHAB [facility]ICIN [facility] Feb 29, 2024 09:00 AM AMBULATORY - NONE [facility] Mar 06, 2024 09:00 AM AMBULATORY - NONE [facility] Mar 06, 2024 11:00 AM AMBULATORY - REHAB MEDICIN [facility] March 15, 2024 09:00 AM AMBULATORY - NONE [facility] Lab Results: +/- 30 days [...] Nov 11, 2023 10:38 AM [facility] HGA1C Specimen Type: BLOOD No comment entered. Ordering Provider: MARJORIE CASTELLON Report Released Date/Time: Oct 18, 2023 11:23 AM Reporting Lab: [place] [address] [facility] [id number] Performing Lab: [address] [address] HGA1C 8.8 H 4.0-6.0 Vital Signs: All taken on the encounter date This section contains inpatient and outpatient Vital Signs collected on the date of the Encounter. Date/Time Temperature Pulse Blood Pressure Respiratory Rate SP02 Pain Height Weight Body Mass Index Source Nov 18, 2023 09:50 AM 138/82 mm[Hg] [facility] Nov 18, 2023 09:45 AM 82 /min 136/84 mm[Hg] [facility] Social History: Smoking Status (Most current) [...] Date/Time Current Smoking Status Comment Radhika angelesy March 22, 2023 10:00 AM VA-TOBACCO FORMER [...] DIRECTIVE DISCUSSION ERICK BARDALES [facility] Encounter Notes: All associated encounter notes This section contains the clinical notes associated to the Encounter. Date/Time Encounter Note(s) Provider Source Nov 18, 2023 09:30 AM INTERNAL MEDICINE CLINICAL PHARMACIST MEDICATION MGT NOTE: LOCAL TITLE: CLINICAL PHARMACIST NOTE ST STANDARD TITLE: INTERNAL MEDICINE CLINICAL PHARMACIST MEDICATION DATE OF NOTE: NOV 18, 2023@09:30 ENTRY DATE: NOV 18, 2023@07:59:38 AUTHOR: GARRET BANUELOS COSIGNER: MARJORIE CASTELLON URGENCY: STATUS: COMPLETED CLINICAL PHARMACIST NOTE STL Has ADDENDA CLINICAL PHARMACY FOLLOW-UP Subjective: CHET WALKER is a 73 MALE who presents to clinic for follow up on DM. Pt confirmed full name and . PMH: 1) Asthma (SNOMED CT 140912113) 2) Gastro-esophageal reflux disease (SNOMED CT 874883052) 3) Peptic Ulcer Disease * (ICD-9-CM 533.90) 4) Hypertension (SNOMED CT 84521077) 5) Pituitary Neoplasms (ICD-9-CM 194.3) 6) Hyperlipidemia (SNOMED CT 74263129) 7) Erectile dysfunction associated with type 2 diabetes mellitus 8) Osteoarthritis of knee 9) Diabetes mellitus with neuropathy 10) Low back pain 11) Obesity 12) Patellofemoral syndrome of right knee 13) History of left total knee replacement 14) History of arthroplasty of right knee During the last contact with vet 10/18, no medication changes made. - SMBGS bc meter broke, sent new one ======== During current visit: -willing to reschedule nutrition appt -requesting multivitamin -no BP cuff, lost in move last year -wants glucose tabs in case when fishing Dietary/Lifestyle/Social History modifications made: meals- whatever spaghetti, chili, steak, pasta, salads, cornbread, mac and cheese -skips lunch often drinks- sweet tea 1/day, diet coke snacks- cutting down on night snacking since new years, now popcorn or sm bowl of chips, fruit -full size microwave bag popcorn- takes 3 days to finish -chips family size- states not often/much d/t no teeth, shares with son ROS: DM - (-) hypoglycemia symptoms or values <80 mg/dL (-) hyperglycemia symptoms (+) tingling/numbness -fingers worsening in last few weeks HLD - (-) CP (-) muscle pain/cramps HTN - (-) hypotension symptoms or value <90/60 mmHg (-) orthostasis (-) edema (-) cough Objective: [...] WELL. RINSE MOUTHPIECE FREQUENTLY TO PREVENT CLOGGING. -use PRN 3) ATORVASTATIN CALCIUM 80MG TAB TAKE ONE-HALF TABLET BY ACTIVE MOUTH EVERY EVENING FOR HIGH CHOLESTEROL - taking 4) DULOXETINE HCL 60MG EC CAP TAKE ONE CAPSULE BY MOUTH ACTIVE ONCE A DAY FOR NERVE PAIN DO NOT ABRUPTLY DISCONTINUE MEDICATION. -taking 5) HCTZ 12.5/LISINOPRIL 20MG TAB TAKE 2 TABLETS BY MOUTH ACTIVE EVERY MORNING TO LOWER BLOOD PRESSURE -taking 6) HYDROPHILIC (EQV EUCERIN) TOP CREAM APPLY LIBERALLY ACTIVE TO AFFECTED AREA(S) ONCE A DAY (EXTERNAL USE ONLY) DRY BETWEEN TOES AFTER APPLYING. 7) INSULIN,GLARG(TOUJEO MAX) 300 UNT/ML 3ML INJECT 100 ACTIVE UNITS UNDER THE SKIN ONCE A DAY FOR DIABETES ADMINISTER AT SAME TIME EACH DAY DIRECTED. DISCARD ANY OPEN CARTRIDGE AFTER 42 DAYS. *HIGH DOSE INSULIN* -taking 8) LIDOCAINE 5% PATCH APPLY 1 PATCH TO SKIN SITE ONCE A ACTIVE DAY NEEDED FOR LOCAL ANESTHESIA APPLY PATCH AND PRESS FIRMLY FOR 10-15 SECONDS. KEEP ON FOR 12 HOURS THEN REMOVE PATCH FOR 12 HOURS. -PRN 9) METFORMIN HCL 500MG 24HR SA TAB TAKE TWO TABLETS BY ACTIVE MOUTH TWICE A DAY FOR BLOOD SUGAR CONTROL. TAKE WITH FOOD. AVOID ALCOHOL. DISCONTINUE BEFORE GETTING XRAY DYE. -taking 10) METHOCARBAMOL 500MG TAB TAKE 1 TABLET BY MOUTH TWICE ACTIVE DAILY NEEDED FOR MUSCLE SPASM -PRN 11) OMEPRAZOLE 20MG EC CAP TAKE ONE CAPSULE BY MOUTH ACTIVE EVERY MORNING TO LOWER STOMACH ACID. TAKE 30 MINUTES PRIOR TO FOOD. - taking 12) SEMAGLUTIDE 1MG/0.75ML INJ PEN 3ML INJECT 1MG UNDER ACTIVE THE SKIN EVERY WEEK FOR DIABETES - Tuesdays Active Non-VA Medications Status 1) Non-VA NAPROXEN NA 220MG TAB 220MG BY MOUTH ACTIVE NEEDED - PRN 13 Total Medications Medication reconciliation completed: YES Adherence to above medications: good per pt Refills/renewals needed:needles, glucose tabs Labs: CMP: SODIUM 138 mEq/L 03/22/2023 12:00 [...] 12:00 EGFR (CKD-EPI 2020) 94.2 03/22/2023 12:00 est CrCl:93.9mL/min CREATININE 0.83 mg/dL 03/22/2023 12:00 FLP: TRIGLYCERIDE 140 mg/dL 03/22/2023 12:00 CHOLESTEROL 196 mg/dL 03/22/2023 12:00 HDL(New) 31 L mg/dL 03/22/2023 12:00 CALCULATED LDL 137 mg/dL 03/22/2023 12:00 MICRAL/CR PROFILE: CREATuF: 341.9 (03/22/23 12:00) M/CREAT: 23 (03/22/23 12:00) MICRAL: 77.4 (03/22/23 12:00) A1c: HGA1C 8.8 H % 11/11/2023 10:38 HGA1C 8.1 H % 06/29/2023 10:32 HGA1C 8.1 H % 03/22/2023 12:00 HGA1C 6.4 H % 03/20/2022 11:40 HGA1C 5.5 % 11/10/2021 11:57 TSH: No TSH (1YR) EO data found Vitamin D: No VITAMIN D 25 HYDROXY EO data found SMBGs: Date Breakfast Lunch Evening Bedtime Before 2hr post Before 2hr post Before 2hr post 11/18 99 11/17 114 11/16 101 11/15 115 11/14 83 11/13 117 11/12 110 11/11 82 11/10 103 11/09 146 11/07 122 11/06 140 11/05 168 10/15 171 11/03 136 11/02 350 205 11/01 164 10/31 268 204 279 10/30 177 BP last visit:132/80 (07/21/2023 10:47) Pulse last visit: 73 (07/21/2023 10:40) Home Readings: Blood Pressure Pulse not checking at home d/t no cuff Automatic BP seated, rested: 136/84 mmHg 948 Pulse: 82 bpm Automatic BP recheck seated, rested: 138/82 mmHg Assessment/Plan: 1) Diabetes - Goal A1c <7-8%, FBG 80-130, post-prandial BG <180, per [place]D guidelines --Uncontrolled per a1c due to past non compliance. SMBGs improved at this visit. Taking meds now, denies ADRs. Confirms adherence. Denies hypoglycemia or BG<80, but requests glucose tabs in case-will send. Discussed jennifer 3 at this visit, however pt wants to think on it d/t used to fingersticks and hesitance to change- will readdress at next visit. Pt follows w/ nutrition and will reschedule. Addressed serving sizes. Largest meal is dinner, always with carb component per pt. Will decrease toujeo and add aspart to dinner. Will CCT of other meds and advised vet to check SMBGs BID. --Continue metformin SA 500mg to 2 tabs BID as directed. --Continue semaglutide 1mg once a week. --DECREASE glargine 300 units/ml to 90 units daily --START insulin aspart 6 units before dinner - instructed vet to check SMBGs BID - reviewed sx/management of hypoglycemia (rule of 15) and when to contact clinic or go to emergency room - Labs: due for none - SOC: (-) ASA (+) ACEi/ARB (+) statin (+) BP last clinic in goal (-) flu vaccine refused (-) COVID vaccine refused (+) foot exam: -last 05/05/23 HIGH RISK FOOT (+) eye exam: 06/04/23. T2DM with Mild NPDR OS, no DR OD, no DME OU - last HgA1C 8.1% - single dot heme in the left eye - no contraindications for semaglutide 2) Lipids - Goal is treatment with moderate-intensity statin per VADoD guidelines; moderate to high-intensity statin per ACC/AHA guidelines. Currently meets statin recommendations. Denies ADRs, confirms adherence. Will CCT. --Continue atorvastatin 40mg daily - monitor for myalgias and report to CP or PCP if occurs - Labs: due for none 3) HTN - Goal <130/80 mmHg per 2017 AHA guidelines; <140/90 mmHg per JNC8 guidelines; <140/90 >60 + DM per VADoD guidelines. -Controlled HTN. Clinic BP at goal. Home BP unable to assess d/t no cuff- Will send BP cuff. Denies ADRs, confirms adherence. Denies hypo/hypertension sx. S.Cr/K/Na WNL. Will CCT and reassess labs when appropriate. --Continue HCTZ/lisinopril to 12.5/20mg 2 tabs daily - Instructed vet to call CP if SBP >160 sustained or DBP >100 sustained; - Instructed vet to present to ER if SBP >180 sustained or DBP >120 sustained and/or if symptoms present (chest pain, headache, vision changes, numbness, etc.) - Labs: due for none 4) Med Rec completed and med list updated in CPRS. -pt requesting multivitamin- will send - Educated vet on risks/benefits of new medication. - Education provided on nonpharmacologic ways to improve DM/HLD/HTN (including lifestyle management/dietary/physical activity) specific for the vet's needs. - verbalized understanding to all plans discussed today. Questions were answered to vet's satisfaction. Time spent with vet: 34 min RTC: 4 weeks F2F next PCP FU: 02[facility]02/2024 10[facility] Preceptor, Marjorie Castellon PharmD, reviewed above and agreeable to A/P Medication Reconciliation Opt STL: I have reviewed the patient's medication list (including active outpatient prescriptions dispensed from this [facility] (local) and dispensed from another [place] or [facility] facility (remote) as well as inpatient orders (local pending and active), local clinic medications, locally documented non-VA medications, and local prescriptions that have or been discontinued in the past 90 days.) with the patient and/or his/her care-hide cleaner. Influenza Immunization: The patient declines to receive the recommended dose of seasonal influenza vaccine. Immunization: INFLUENZA, UNSPECIFIED FORMULATION Refusal Reason: PATIENT DECISION Patient refuses all immunization(s) in the FLU group Date Documented: 11/18/23 10:35 PBM PharmD Pharmacotherapy Rem V12: PHARMACIST INTERVENTIONS: HYPERTENSION Medication monitoring, no dosage change required, continue to monitor and assess LIPID MANAGEMENT Medication monitoring, no dosage change required, continue to monitor and assess TYPE 2 DIABETES MELLITUS Medication Intervention(s) Adjust dose or frequency of current medication due to other reason Initiate new medication /camryn Banuelos PharmD PGY1 Resident Signed: 11/18/2023 16:28 /camryn CASTELLON PHARMTeodoraDTeodora, [facility] CLINICAL PHARMACIST Cosigned: 11/19/2023 08:49 11/19/2023 ADDENDUM STATUS: COMPLETED Pt case discussed with vice president tax, agree with A/P. /camryn CASTELLON PHARMIsaura, [facility] CLINICAL PHARMACIST Signed: 11/19/2023 08:49 GARRET BANUELOS [facility]
--- OUTSIDE RECORDS SUMMARY | 2024-11-17 03:49 | XMS_ITS | Encounter Summary ---
Author Name [facility] [place] [facility] [place] Organization [facility] [place] Address [address] [place] [address] Care Team Providers Care Treater Name Role Phone MANUEL BAIRD Primary Care [...] PART A Apr 08, 2017 PART A [id number] ASHLEY WALKER PATIENT Selected Encounter This section includes the information on record at [place] for the Encounter. Date/Time Encounter Type Encounter Description Reason Provider Source Nov 16, 2023 10:30 AM OFFICE O/P EST LOW 20 MIN OPTOMETRY ICD-10-CM D35.2 Benign neoplasm of pituitary gland JEFFREY RAMIREZ Encounter Template Text not used by [place] Assessments - Encounter Diagnoses This section includes the primary and secondary diagnoses documented for the Encounter. Date/Time Primary/Secondary Diagnosis Diagnosis Name Provider Source Nov 16, 2023 10:59 AM PRIMARY Benign neoplasm of pituitary gland WARD RAMIREZE [facility] Nov 16, 2023 10:59 AM SECONDARY Armenta's palsy BRIANOEMÍJEFFREY Sainz [facility] Nov 16, 2023 10:59 AM SECONDARY Combined forms of age-related cataract, bilateral ODESSAJEFFREY Sainz [facility] Nov 16, 2023 10:59 AM SECONDARY Presbyopia [facility] Plan of Treatment: Future Appointments (+ 6 months) and Future Tests (+/- 45 days) The Plan of Treatment section includes future care activities for the patient from all [place] [facility] This section includes future appointments and future orders which are active, pending or scheduled. Future Appointments This section includes appointments that were scheduled to occur 6 months from the date of the Encounter, up to a maximum of 20 appointments. The data comes from all [place] treatment facilities. Appointment Date/Time Appointment Type Appointme nt Facility Name Nov 18, 2023 09:30 AM AMBULATORY - MEDICINE [facility] Nov 29, 2023 08:30 AM AMBULATORY - NONE [facility] Dec 06, 2023 09:00 AM AMBULATORY - NONE [facility] Dec 08, 2023 10:00 AM AMBULATORY - SURGERY [facility] Dec 16, 2023 09:30 AM AMBULATORY - MEDICINE [facility] Dec 16, 2023 11:15 AM AMBULATORY - MEDICINE [facility] Jan 03, 2024 09:00 AM AMBULATORY - NONE [facility] Jan 24, 2024 08:30 AM AMBULATORY - NONE [facility] Jan 24, 2024 11:30 AM AMBULATORY - MEDICINE [facility] Jan 26, 2024 11:30 AM AMBULATORY - SUR[facility]ERY [facility] Feb 02, 2024 10:15 AM AMBULATORY - MEDICINE [facility] Feb 07, 2024 10:00 AM AMBULATORY - NONE [facility] Feb 10, 2024 11:00 AM [facility] Feb 11, 2024 11:00 AM AMBULATORY - MEDICINE [facility] Feb 17, 2024 11:30 AM AMBULATORY - MEDICINE [facility] Feb 21, 2024 10:00 AM [facility]ORY - NONE [facility] Feb 28, 2024 01:30 PM [facility] Feb 29, 2024 09:00 AM AMBULATORY - NONE [facility] Mar 06, 2024 09:00 AM [facility]ULATORY - NONE [facility] Mar 06, 2024 11:00 AM AMBULATORY - REHAB MEDICIN E [facility] Lab Results: +/- 30 days of the encounter This section includes the Chemistry and Hematology Lab Results on record with [place] for the patient. Radiology Reports and Pathology Reports are provided separately, in subsequent sections. Lab Results This section contains the Chemistry/Hematology Results that were resulted 30 days before or 30 daysafter the date of the Encounter. Date/Time Source Result Type Result - Unit Interpretation Reference Range Comment Nov 11, 2023 10:38 AM [facility] HGA1C Specimen Type: BLOOD No comment entered. Ordering Provider: REED COLLADO Report Released Date/Time: Oct 18, 2023 11:23 AM Reporting Lab: [facility] [address] [facility] [address] Performing Lab: [address] [address] HGA1C 8.8 H 4.0-6.0 Social History: Smoking Status (Most current) and Tobacco Use (All prior to encounter date) This section includes the most current, and the historical, smoking and tobacco- related health factors from the [place] facility where the Encounter took place. Current Smoking Status This section includes the most current smoking, or tobacco-related health factor, from the [place] facility where the Encounter took place. Date/Time Current Smoking Status Comment Radhika goins Aug 11, 2016 10:34 AM QUIT TOBACCO >7 YEARS AGO [facility] Tobacco Use History This section includes a history of the smoking, or tobacco-related health factors, that were collected on or before the date of the Encounter. The data comes from the [place] facility where the Encounter took place. Date/Time Smoking Status/Tobacco Use Comment Juan acmichael Sep 30, 2015 10:12 AM QUIT TOBACCO >7 YEARS AGO [facility] Oct 29, 2014 10:23 AM QUIT TOBACCO >7 YEARS AGO [facility] Dec 27, 2013 01:27 PM QUIT TOBACCO >7 YEARS AGO [facility] Feb 24, 2013 02:01 PM LIFETIME NON-USER OF TOBACCO [facility] Feb 11, 2009 10:09 AM QUIT TOBACCO >7 YEARS AGO [facility] Oct 06, 2006 09:30 AM CURRENT NON-TOBACC O USER-HX OF USE [facility] Oct 06, 2006 09:30 AM TOBACCO TERMINATION STAGE [facility] Advance Directives: All historical and current Section Date Range: From patient's date of to the date document was created. This section includes ALL of a patient's completed or amended [place] Advance and Rescinded Directives. The entries below indicate that a directive exists for the patient, but an actual copy is not included with this document. The data comes from all [place] facilities. Date Advance Directives Provider Source Jan 19, 2017 ADVANCE DIRECTIVE DISCUSSION ERICK BARDALES [facility] Encounter Notes: All associated encounter notes This section contains the clinical notes associated to the Encounter. Date/Time Encounter Note(s) Provider Source Nov 16, 2023 12:45 PM OPTOMETRY CONSULT: [facility] TITLE: OPTOMETRY CONSULT [facility] TITLE: OPTOMETRY CONSULT DATE OF NOTE: NOV 16, 2023@12:45 ENTRY DATE: NOV 16, 2023@12:45:24 AUTHOR: BERNARD RAMIREZ COSIGNER: URGENCY: STATUS: COMPLETED VISUAL FIELD Report [facility] 24-2 Report CLINICAL HISTORY: h/o pituitary adenoma possible CVF constriction last May O.D. Reliability fair Fixation losses 6/10 Foveal threshold 36 MD 0.34 PSD 1.66 GHT ONL VFI 99% Description of the VF: shallow inferior nasal cluster defect O.S. Reliability fair Fixation losses 6/13 Foveal threshold 37 MD -0.25 PSD 1.68 GHT ONL VFI 98% Description of the VF : no blindspot plotted shallow inferior nasal cluster defect Assessment: no bitemporal defects that would be c/w chiasmal compression /es/ BERNARD RAMIREZ, OD staff Physician, Optometry Signed: 11/16/2023 12:48 BERNARD RAMIREZ [facility] Nov 16, 2023 10:35 AM OPTOMETRY NOTE: LOCAL TITLE: OPTOMETRY NOTE STANDARD TITLE: OPTOMETRY NOTE DATE OF NOTE: NOV 16, 2023@10:35 ENTRY DATE: NOV 15, 2023@11:02:23 AUTHOR: BERNARD RAMIREZ EXP COSIGNER: URGENCY: STATUS: COMPLETED Last seen 06/04/23 CC: patient presents for physician-directed f/u for HVF testing due to h/o pituitary adenoma he feels like his vision might be a little bit worse in both eyes no changes to peripheral vision Ocular meds: none Ocular ROS: (-) eye injuries (+) eye surgeries, injections or laser treatments s/p bilateral upper eyelid blepharoplasty 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 IDDM without h/o Ocular Complications OU h/o Pitutary Adenoma Combined Cataracts OU Family OcHX: (-) blindness (-) glaucoma (-) AMD (-) RD Cardiovascular ROS: no change from problem & medication lists CPRS Problem list, medications and allergies reviewed: CPRS Serology for Diabetes GLUCOSE 123 H mg/dL 03/22/2023 12:00 HGA1C 8.8 H % 11/11/2023 10:38 Cardiovascular BP: 132/80 (07/21/2023 10:47) Pulse: 73 (07/21/2023 10:40) Neuro: Orientation: Normal Psych: Mood/Affect: Normal Depression/suicide ideation: NO VISUAL ACUITY With correction Distance Visual Acuity OD 20/25-1 OS 20/25 Pupils PERRL OU (-)APD Confrontation: FTFC OU Extra-Ocular Muscles Full OU Externals/adnexa: Unremarkable OU Refraction: 11/16/23 OD SPHERE: +1.25 CYL: -1.25 AXIS: 105 20/20- OS SPHERE: +1.25 CLY: -1.50 AXIS: 077 20/20- ADD: +2.50 SLIT LAMP EXAMINATION Lids/Lashes/Lacrimal mild MGD OU, tr scurf OU incomplete blink OS papilloma lateral LLL Conjunctiva/Sclera White/quiet OU Cornea/Tear Film Clear OD, 1+ inferior PEE OS Ant Chamber Deep and quiet OU Iris Normal, (-)NVI OU Lens 1-2+ NSC, 1+ PSC superiorly OU Intraocular Pressures (Goldmann) 1 gtt fluress Date: OD OS Time Meds 06/09/22 18 17 0907 none 06/04/23 19 19 0848 none 11/16/23 18 18 1055 none RETINAL EVALUATION noneDilated retinal exam Optic Nerve OD 0.15 CDR Flat, pink, distinct (-)NVD OS 0.15 CDR Flat, pink, distinct (-)NVD Assessment 11/16/23 1. h/o Pituitary Adenoma - managed at OSH; per patient, treated with bromocriptine >10 years ago - last HVF 05/2021 was without bitemporal defects - at May 2023 visit there was slight inferior temporal constriction but patient would not take HVF - HVF 24-2 updated today: no VF defects that would be consistent with chiasmal compression 2. Type 2 Diabetes with h/o Mild NPDR OS, no DR OD; no DME OU - last HgA1C 8.8% - not assessed today, due for next DFE 05/2024 3. Combined Cataract OU - c/w BCVA of 20/25-1 OD, 20/20 OS 4. 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 Refractive Error/Presbyopia Plan 11/16/23 1. Follow. 2. Advised continued good blood glucose control with goal of A1c <7% to reduce the risk of vision loss. Monitor in May with DFE. 3. Defer cataract extraction until cataract limits vision to 20/40 or worse and symptoms indicate. 4. Continue with Refresh PF Tears BID-QID OU. 5. Update SRx. Consult placed for new glasses. Ed. pt on all findings and given the opportunity to have questions answered RTC May 2024 for CEE /shen/ BERNARD RAMIREZ, OD staff Physician, Optometry Signed: 11/16/2023 12:49 BERNARD RAMIREZ [facility]
--- OUTSIDE RECORDS SUMMARY | 2024-11-17 03:57 | XMS_ITS ---
Author Name Department of Vetera Affairs [place]) Organization [place] Address [address] [place] [address] Care Team Providers Care Furniture Packer Name Role Phone MANUEL BAIRD Primary [...] PART A Apr 08, 2017 PART A [id number] [phone] ASHLEY WALKER PATIENT Selected Encounter This section includes the information on record at [place] for the Encounter. Date/Time Encounter Type Encounter Description Reason Pro vider Source Jul 08, 2024 09:01 PM Outpatient Encounter ADMIN PAT ACTIVTIES (MASNONCT) [...] 14, 2024 12:54 PM AMBULATORY - SURGERY [facility] Jul 20, 2024 10:00 AM AMBULATORY - MEDICINE [facility] Aug 02, 2024 09:45 AM AMBULATORY - MEDICINE [facility] Aug 24, 2024 10:00 AM AMBULATORY - MEDICINE [facility] Aug 24, 2024 10:30 AM AMBULATORY - MEDICINE [facility] Aug 30, 2024 09:30 AM AMBULATORY - MEDICINE [facility] Aug 31, 2024 01:00 PM AMBULATORY - SURGERY [facility] Sep 21, 2024 01:30 PM AMBULATORY - MEDICINE [facility] Sep 22, 2024 11:00 AM AMBULATORY - MEDICINE [facility] Sep 29, 2024 12:30 PM AMBULATORY - MEDICINE [facility] Oct 02, 2024 09:30 AM AMBULATORY - MEDICINE [facility] Nov 20, 2024 10:30 AM AMBULATORY - SURGERY [facility] Nov 21, 2024 10:00 AM AMBULATORY - NONE [facility] Dec 11, 2024 10:30 AM AMBULATORY - MEDICINE [facility] Active, Pending, and Scheduled Orders This section includes a listing of several types of active, pending, and scheduled orders, including clinic medications orders, diagnostic test orders, procedure orders and consult orders; where the start date of the order is 45 days before the date of the Encounter or 45 days after the date of theEncounter. The data comes from all [facility]. Test Date/Time Test Type Test Details Facility Name Aug 02, 2024 12:00 AM Laboratory - Chemistry Order COMPREHENSIVE METABOLIC PANEL GREEN LI/HEP BLD/PLAS PLASMA SP [facility] Aug 02, 2024 12:00 AM Laboratory - Chemistry Order CBC BLOOD STAT SP [facility] Aug 17, 2024 03:[address] [facility] Cons Bedside [facility] Lab Results: +/- 30 days [...] Range Comment Jul 20, 2024 11:18 AM [facility] APTT Specimen Type: PLASMA No comment entered. Ordering Provider: MANUEL BAIRD Report Released Date/Time: Jul 19, 2024 04:00 PM Reporting Lab: [address] [address] Performing Lab: [address] [address] APTT 32.1 s 26.7-39.9 Jul 20, 2024 11:18 AM [facility] PT/INR NEW ([facility]) Specimen Type: PLASMA No comment entered. Ordering Provider: MANUEL BAIRD Report Released Date/Time: Jul 19, 2024 04:00 PM Reporting Lab: [address] [address] Performing Lab: [address] [address] PROTIME 14.4 s H 9.4-12.5 INR VALUE 1.3 {INR} Jul 20, 2024 11:18 AM [facility] CBC Specimen Type: BLOOD No comment entered. Ordering Provider: MANUEL BAIRD Report Released Date/Time: Jul 19, 2024 04:00 PM Reporting Lab: [address] [address] Performing Lab: [address] [address] WBC 4.7 10*3/uL 3.6-11.2 RBC 4.86 10*6/uL [...] 1.6 1.0-7.0 Jul 17, 2024 08:02 AM [facility] BASIC METABOLIC PANEL Specimen Type: PLASMA Comment: No hemolysis noted. Ordering Provider: CYNDEE SERNA Report Released Date/Time: Jun 07, 2024 01:43 PM Reporting Lab: [address] [address] Performing Lab: [address] [address] CREATININE 0.85 mg/dL 0.7-1.3 UREA NITROGEN 15.2 mg/dL 9.0-25.0 GLUCOSE 120 mg/dL H 72-99 SODIUM 141 meq/L 136-145 POTASSIUM 4.4 meq/L 3.5-5 CHLORIDE 107 meq/L 98-107 CARBON DIOXIDE 26 meq/L 22-31 CALCIUM 9.2 mg/dL 8.4-10.4 EGFR (CKD-EPI 2020) 92.3 >60 Jun 19, 2024 07:30 AM [facility] PT/INR NEW ([facility]) Specimen Type: PLASMA No comment entered. Ordering Provider: ROLANDA PITTS Report Released Date/Time: Jun 12, 2024 10:14 AM Reporting Lab: [address] [address] Performing Lab: [facility] [address] [facility] [address] PROTIME 13.3 s H 9.4-12.5 INR VALUE 1.2 {INR} Jun 19, 2024 07:30 AM [facility] BASIC METABOLIC PANEL Specimen Type: PLASMA Comment: K result may show a positive bias due to hemolysis. Specimen slightly hemolyzed. Ordering Provider: ROLANDA PITTS Report Released Date/Time: Jun 12, 2024 10:14 AM Reporting Lab: [facility] [address] [place] [id number] Performing Lab: [address] [address] CREATININE 0.85 mg/dL 0.7-1.3 UREA NITROGEN 11.9 mg/dL 9.0-25.0 GLUCOSE 106 mg/dL H 72-99 SODIUM 141 meq/L 136-145 POTASSIUM 4.4 meq/L 3.5-5 CHLORIDE 110 meq/L H 98-107 CARBON DIOXIDE 22 meq/L 22-31 CALCIUM 9.9 mg/dL 8.4-10.4 EGFR (CKD-EPI 2020) 92.3 >60 Jun 19, 2024 07:30 AM [facility] CBC Specimen Type: BLOOD No comment entered. Ordering Provider: ROLANDA PITTS Report Released Date/Time: Jun 12, 2024 10:14 AM Reporting Lab: [address] [address] Performing Lab: [address] [address] WBC 5.1 10*3/uL 3.6-11.2 RBC 5.31 10*6/uL [...] 2.3 1.0-7.0 Jun 19, 2024 07:29 AM [facility] GLUCOSE,BLOOD-poct (STL) Specimen Type: BLOOD Comment: Test Performed by: [id number] Meter #: [id number] Ordering Provider: ANYI HAGEN Report Released Date/Time: Jun 19, 2024 06:58 PM Reporting Lab: [facility] [address] [facility] [address] Performing Lab: [place] [address] [facility] [address] GLUCOSE,BLOOD -poct (STL) 108 mg/dL H 72-99 Jun 09, 2024 11:48 AM [facility] MICRAL/CREAT PROFILE (STL) Specimen Type: URINE No comment entered. Ordering Provider: CYNDEE SERNA Report Released Date/Time: Jun 07, 2024 01:44 PM Reporting Lab: [facility] [address] [facility] [address] Performing Lab: [facility] [address] [facility] [address] URINE ALBUMIN (PB-STL) 167.5 mg/L uACR (STL) 103 mg/g H 0-29 CREATININE URINE/OTHERS 163.4 mg/dL 63-166 Social History: Smoking Status (Most current) and [...] 10:34 AM QUIT TOBACCO >7 YEARS AGO [facility] Tobacco Use History This section includes a history of the smoking, or tobacco-related health factors, that were collected on or before the date of the Encounter. The data comes from the [place] facility where the Encounter took place. Date/Time Smoking Status/Tobacco Use Comment F acility Sep 30, 2015 10:12 AM QUIT TOBACCO >7 YEARS AGO [facility] Oct 29, 2014 10:23 AM QUIT TOBACCO >7 YEARS AGO [facility] Dec 27, 2013 01:27 PM QUIT TOBACCO >7 YEARS AGO [facility] Feb 24, 2013 02:01 PM LIFETIME NON-USER OF TOBACCO [facility] Feb 11, 2009 10:09 AM QUIT TOBACCO >7 YEARS AGO [facility] Oct 06, 2006 09:30 AM CURRENT NON-TOBACC O USER-HX OF USE [facility] Oct 06, 2006 09:30 AM TOBACCO TERMINATION STAGE [facility] Advance Directives: All historical and current Section Date Range: From patient's date of to the date document was created. This section includes ALL of a patient's completed or amended [place] Advance and Rescinded Directives. The entries below indicate that a directive exists for the patient, but an actual copy is not included with this document. The data comes [facility] all [facility]. Date Advance Directives Provider Source Jan 19, 2017 ADVANCE DIRECTIVE DISCUSSION ERICK BARDALES [facility] Encounter Notes: All associated encounter notes This section contains the clinical notes associated to the Encounter. Date/Time Encounter Note(s) Provider Source Jul 08, 2024 09:01 PM PHARMACY PROGRESS NOTE: LOCAL TITLE: PH[facility]ACY [facility] STANDARD TITLE: PHARMACY PROGRESS NOTE DATE OF NOTE: JUL 08, 2024@21:01 ENTRY DATE: JUL 08, 2024@21:02:10 AUTHOR: MALA ESPOSITO EXP COSIGNER: URGENCY: STATUS: COMPLETED Pretty 3 sensors are on backorder with no estimated availability. Patients are being converted to a new Pretty 3 Plus sensor which is worn for 15 days instead of only 14 like the previous sensors. The new sensors can be used with all readers and smartphone apps compatible with the old sensors. Letters will be included with the product explaining the difference to the patient. /shen/ Mala Esposito RPh, LINDA, ABY Clinical Pharmacist Signed: 07/08/2024 21:02 MALA ESPOSITO [facility]
--- OUTSIDE RECORDS SUMMARY | 2024-11-17 03:58 | XMS_ITS | Encounter Summary ---
Author Name [facility] Address [address] [place] [address] Care Team Providers Care Agricultural Science Professor Name Role Phone MANUEL THOMAS Primary Care [...] PART A Apr 08, 2017 PART A [id number] ASHLEY WALKER PATIENT Selected Encounter This section includes the information on record at [place] for the Encounter. Date/Time Encounter Type Encounter Description Reason Provider Source Jul 09, 2024 07:37 PM Outpatient Encounter COMMUNITY CARE CONSULT SARAH LUNA Encounter Template Text not used by VA [...] 20 appointments. The data comes from all [facility]. Appointment Date/Time Appointment Type Appointme nt Facility Name Jul 14, 2024 12:54 PM AMBULATORY - SURGERY [facility] Jul 20, 2024 10:00 AM AMBULATORY - MEDICINE [facility] Aug 02, 2024 09:45 AM AMBULATORY - MEDICINE [facility] Aug 24, 2024 10:00 AM AMBULATORY - MEDICINE [facility] Aug 24, 2024 10:30 AM AMBULATORY - MEDICINE [facility] Aug 30, 2024 09:30 AM AMBULATORY - MEDICINE [facility] Aug 31, 2024 01:00 PM AMBULATORY - SURGERY [facility] Sep 21, 2024 01:30 PM AMBULATORY - MEDICINE [facility] Sep 22, 2024 11:00 AM AMBULATORY - MEDICINE [facility] Sep 29, 2024 12:30 PM AMBULATORY - MEDICINE [facility] Oct 02, 2024 09:30 AM AMBULATORY - MEDICINE [facility] Nov 20, 2024 10:30 AM AMBULATORY - SURGERY [facility] Nov 21, 2024 10:00 AM AMBULATORY - NONE [facility] Dec 11, 2024 10:30 AM AMBULATORY - MEDICINE [facility] Active, Pending, and Scheduled Orders This section includes a listing of several types of active, pending, and scheduled orders, including clinic medications orders, diagnostic test orders, procedure orders and consult orders; where the start date of the order is 45 days before the date of the Encounter or 45 days after the date of theEncounter. The data comes from all [facility]. Test Date/Time Test Type Test Details Facility Name Aug 02, 2024 12:00 AM Laboratory - Chemistry Order CBC BLOOD STAT SP [facility] Aug 02, 2024 12:00 AM Laboratory - Chemistry Order COMPREHENSIVE METABOLIC PANEL GREEN LI/HEP BLD/PLAS PLASMA SP [facility] Aug 17, 2024 03:47 PM Consult Order [facility] Cons Bedside [facility] Lab Results: +/- 30 days of the encounter This section includes the Chemistry and Hematology Lab Results on record with [place] for the patient. Radiology Reports and Pathology Reports are provided separately, in subsequent sections. Lab Results This section contains the Chemistry/Hematology Results that were resulted 30 days before or 30 daysafter the date of the Encounter. Date/Time Source Result Type Result - Unit Interpretation Reference Range Comment Jul 20, 2024 11:18 AM [facility] APTT Specimen Type: PLASMA No comment entered. Ordering Provider: MANUEL THOMAS Report Released Date/Time: Jul 19, 2024 04:00 PM Reporting Lab: [address] [address] Performing Lab: [address] [address] APTT 32.1 s 26.7-39.9 Jul 20, 2024 11:18 AM [facility] PT/INR NEW ([facility]) Specimen Type: PLASMA No comment entered. Ordering Provider: MANUEL THOMAS Report Released Date/Time: Jul 19, 2024 04:00 PM Reporting Lab: [address] [address] Performing Lab: [address] [address] PROTIME 14.4 s H 9.4-12.5 INR VALUE 1.3 {INR} Jul 20, 2024 11:18 AM [facility] CBC Specimen Type: BLOOD No comment entered. Ordering Provider: MANUEL THOMAS Report Released Date/Time: Jul 19, 2024 04:00 PM Reporting Lab: [address] [address] Performing Lab: [address] [address] WBC 4.7 10*3/uL 3.6-11.2 RBC 4.86 10*6/uL [...] 1.6 1.0-7.0 Jul 17, 2024 08:02 AM [facility] BASIC METABOLIC PANEL Specimen Type: PLASMA Comment: No hemolysis noted. Ordering Provider: CYNDEE SERNA Report Released Date/Time: Jun 07, 2024 01:43 PM Reporting Lab: [address] [address] Performing Lab: [address] [address] CREATININE 0.85 mg/dL 0.7-1.3 UREA NITROGEN 15.2 mg/dL 9.0-25.0 GLUCOSE 120 mg/dL H 72-99 SODIUM 141 meq/L 136-145 POTASSIUM 4.4 meq/L 3.5-5 CHLORIDE 107 meq/L 98-107 CARBON DIOXIDE 26 meq/L 22-31 CALCIUM 9.2 mg/dL 8.4-10.4 EGFR (CKD-EPI 2020) 92.3 >60 Jun 19, 2024 07:30 AM [facility] PT/INR NEW ([facility]) Specimen Type: PLASMA No comment entered. Ordering Provider: ROLANDA PITTS Report Released Date/Time: Jun 12, 2024 10:14 AM Reporting Lab: [address] [address] Performing Lab: [facility] [address] [place] [phone] PROTIME 13.3 s H 9.4-12.5 INR VALUE 1.2 {INR} Jun 19, 2024 07:30 AM [facility] BASIC METABOLIC PANEL Specimen Type: PLASMA Comment: K result may show a positive bias due to hemolysis. Specimen slightly hemolyzed. Ordering Provider: ROLANDA PITTS Report Released Date/Time: Jun 12, 2024 10:14 AM Reporting Lab: [address] [address] Performing Lab: [address] [address] CREATININE 0.85 mg/dL 0.7-1.3 UREA NITROGEN 11.9 mg/dL 9.0-25.0 GLUCOSE 106 mg/dL H 72-99 SODIUM 141 meq/L 136-145 POTASSIUM 4.4 meq/L 3.5-5 CHLORIDE 110 meq/L H 98-107 CARBON DIOXIDE 22 meq/L 22-31 CALCIUM 9.9 mg/dL 8.4-10.4 EGFR (CKD-EPI 2020) 92.3 >60 Jun 19, 2024 07:30 AM [facility] CBC Specimen Type: BLOOD No comment entered. Ordering Provider: ROLANDA PITTS Report Released Date/Time: Jun 12, 2024 10:14 AM Reporting Lab: [address] [address] Performing Lab: [address] [address] WBC 5.1 10*3/uL 3.6-11.2 RBC 5.31 10*6/uL [...] 2.3 1.0-7.0 Jun 19, 2024 07:29 AM [facility] GLUCOSE,BLOOD-poct (STL) Specimen Type: BLOOD Comment: Test Performed by: [id number] Meter #: [id number] Ordering Provider: ANYI HAGEN Report Released Date/Time: Jun 19, 2024 06:58 PM Reporting Lab: [place] [id number] [facility] [address] Performing Lab: [place] [address] [facility] [address] GLUCOSE,BLOOD -poct (STL) 108 mg/dL H 72-99 Social History: Smoking Status (Most current) and Tobacco Use (All prior to encounter date) This section includes the most current, and the historical, smoking and tobacco- related health factors from the [place] facility where the Encounter took place. Current Smoking Status This section includes the most current smoking, or tobacco-related health factor, from the [place] facility where the Encounter took place. Date/Time Current Smoking Status Comment Radhika goins Aug 11, 2016 10:34 AM QUIT TOBACCO >7 YEARS AGO [facility] Tobacco Use History This section includes a history of the smoking, or tobacco-related health factors, that were collected on or before the date of the Encounter. The data comes from the [place] facility where the Encounter took place. Date/Time Smoking Status/Tobacco Use Comment Juan acmichael Sep 30, 2015 10:12 AM QUIT TOBACCO >7 YEARS AGO [facility] Oct 29, 2014 10:23 AM QUIT TOBACCO >7 YEARS AGO [facility] Dec 27, 2013 01:27 PM QUIT TOBACCO >7 YEARS AGO [facility] Feb 24, 2013 02:01 PM LIFETIME NON-USER OF TOBACCO [facility] Feb 11, 2009 10:09 AM QUIT TOBACCO >7 YEARS AGO [facility] Oct 06, 2006 09:30 AM CURRENT NON-TOBACC O USER-HX OF USE [facility] Oct 06, 2006 09:30 AM TOBACCO TERMINATION STAGE [facility] Advance Directives: All historical and current Section Date Range: From patient's date of to the date document was created. This section includes ALL of a patient's completed or amended [place] Advance and Rescinded Directives. The entries below indicate that a directive exists for the patient, but an actual copy is not included with this document. The data comes from all [place] facilities. Date Advance Directives Provider Source Jan 19, 2017 ADVANCE DIRECTIVE DISCUSSION ERICK BARDALES [facility] Encounter Notes: All associated encounter notes This section contains the clinical notes associated to the Encounter. Date/Time Encounter Note(s) Provider Source Jul 19, 2024 03:04 PM ADDENDUM: LOCAL TITLE: Addendum STANDARD TITLE: ADDENDUM DATE OF NOTE: JUL 19, 2024@15:04:50 ENTRY DATE: JUL 19, 2024@15:04:50 AUTHOR: SARAH LUNA COSIGNER: URGENCY: STATUS: COMPLETED Care Coordination Follow Up Level of Care Coordination Moderate Care Coordination was determined from: Chart Review Services: Basic Care Coordination Services Monitoring and coordination of Rehab/PT Services Direct communication to referring provider Care management, if appropriate Plan: IMPRESSION RESULTS FROM XRAY No pulmonary consolidation, No pleural effusion. No pneumothorax. Mild cardiomegaly. Mild pulmonary edema. f/u after xray obtained medical records and reviewed and sent copy to [place] provider for f/u f/u with as to assess for CC needs and f/u with CC provider /shen/ SARAH LUNARN MSN REGISTERED NURSE Signed: 07/19/2024 15:06 Receipt Acknowledged By: 07/19/2024 16:01 /shen/ manuel thomas M.D. Staff Physician --- Original Document --- 07/05/24 COMMUNITY CARE-CARE COORDINATION PLAN NOTE 657 STL: Community Care Consult: cardiac surgery Consult No: [id number] [facility] Referral #: Chief Complaint: Worsening shortness of breath with activity Patient Admitted? No Level of Care Coordination Moderate Care Coordination was determined from: Chart Review, Phone call to /Family/Caregiver Facility Community Care Office Contact Care Coordination Point of Contact: sarah Gallego RN Phone Number: [phone] Services: Basic Care Coordination Services Monitoring and coordination of Rehab/PT Services Direct communication to referring provider Care management, if appropriate Plan: Procedure (1): Evaluate for CABG Fax authorization to provider. Follow up with provider or for scheduling update. Follow up with after appointment. Retrieve records for visit. Send to scanner. Assess if any other care is needed found to have worsening SOB. His mitral valve was evaluated however found to have mild to mod MR. 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 He uses a cane and sometimes a walker and therefore Dr. Mckee believes that he would benefit from sternal plating at time of CABG. He is considered higher risk for CABG and Dr. Mckee offered him CABG at facility for higher acuity. /shen/ SARAH LUNARN MSN REGISTERED NURSE Signed: 07/09/2024 19:42 07/19/2024 ADDENDUM STATUS: COMPLETED [place] completed an chest xray on 07/14/24 and notes saved to VACC Scans folder for rn concurrent review. Surgery not scheduled at this time. /shen/ RUBEN LEI Signed: 07/19/2024 11:25 Receipt Acknowledged By: * AWAITING SIGNATURE * SARAH LUNA [facility] Jul 05, 2024 07:50 AM NONVA NOTE: LOCAL TITLE: COMMUNITY CARE-CARE COORDINATION PLAN NOTE 657 [address] STANDARD TITLE: NONVA NOTE DATE OF NOTE: JUL 05, 2024@07:50 ENTRY DATE: JUL 09, 2024@19:37:41 AUTHOR: SARAH LUNA EXP COSIGNER: URGENCY: STATUS: COMPLETED COMMUNITY CARE-CARE COORDINATION PLAN NOTE 657 STL Has ADDENDA Community Care Consult: cardiac surgery Consult No: [id number] [facility] Referral #: Chief Complaint: Worsening shortness of breath with activity Patient Admitted? No Level of Care Coordination Moderate Care Coordination was determined from: Chart Review, Phone call to [place]/Family/Caregiver Facility Community Care Office Contact Care Coordination Point of Contact: sarah Gallego RN Phone Number: [phone] Services: Basic Care Coordination Services Monitoring and coordination of Rehab/PT Services Direct communication to referring provider Care management, if appropriate Plan: Procedure (1): Evaluate for CABG Fax authorization to provider. Follow up with provider or for scheduling update. Follow up with after appointment. Retrieve records for visit. Send to scanner. Assess if any other care is needed found to have worsening SOB. His mitral valve was evaluated however found to have mild to mod MR. 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 He uses a cane and sometimes a walker and therefore Dr. Mckee believes that he would benefit from sternal plating at time of CABG. He is considered higher risk for CABG and Dr. Mckee offered him CABG at facility for higher acuity. /shen/ SARAH LUNA RN MSN REGISTERED NURSE Signed: 07/09/2024 19:42 07/19/2024 ADDENDUM STATUS: COMPLETED [place] completed an chest xray on 07/14/24 and notes saved to VACC Scans folder for rn concurrent review. Surgery not scheduled at this time. /shen/ RUBEN LEI Signed: 07/19/2024 11:25 Receipt Acknowledged By: * AWAITING SIGNATURE * SARAH LUNA 07/19/2024 ADDENDUM STATUS: COMPLETED Care Coordination Follow Up Level of Care Coordination Moderate Care Coordination was determined from: Chart Review Services: Basic Care Coordination Services Monitoring and coordination of Rehab/PT Services Direct communication to referring provider Care management, if appropriate Plan: IMPRESSION RESULTS FROM XRAY No pulmonary consolidation, No pleural effusion. No pneumothorax. Mild cardiomegaly. Mild pulmonary edema. f/u after xray obtained medical records and reviewed and sent copy to [place] provider for f/u f/u with as to assess for CC needs and f/u with CC provider /es/ SARAH LUNARN MSN REGISTERED NURSE Signed: 07/19/2024 15:06 Receipt Acknowledged By: * AWAITING SIGNATURE * MANUEL THOMAS [facility]
--- OUTSIDE RECORDS SUMMARY | 2024-11-17 03:58 | XMS_ITS | Encounter Summary ---
Author Name [facility] [facility] [place] Address [address] [place] [address] Care Team Providers Care International Marketing Specialist Name Role Phone MANUEL BAIRD Primary [...] PART A Apr 08, 2017 PART A [id number] ASHLEY WALKER PATIENT Selected Encounter This section includes the information on record at [place] for the Encounter. Date/Time Encounter Type Encounter Description Reason Pro vider Source Jul 14, 2024 12:00 AM Outpatient Encounter EVENT (HISTORICAL) IHE Encounter [...] 20 appointments. The data comes from all [facility]. Appointment Date/Time Appointment Type Appointme nt Facility Name Jul 20, 2024 10:00 AM AMBULATORY - MEDICINE [facility] Aug 02, 2024 09:45 AM AMBULATORY - MEDICINE [facility] Aug 24, 2024 10:00 AM AMBULATORY MEDICINE [facility] Aug 24, 2024 10:30 AM AMBULATORY - MEDICINE [facility] Aug 30, 2024 09:30 AM AMBULATORY - MEDICINE [facility] Aug 31, 2024 01:00 PM AMBULATORY - SURGERY [facility] Sep 21, 2024 01:30 PM AMBULATORY - MEDICINE [facility] Sep 22, 2024 11:00 AM AMBULATORY - MEDICINE [facility] Sep 29, 2024 12:30 PM AMBULATORY - MEDICINE [facility] Oct 02, 2024 09:30 AM AMBULATORY - MEDICINE [facility] Nov 20, 2024 10:30 AM AMBULATORY - SURGERY [facility] Nov 21, 2024 10:00 AM AMBULATORY - NONE [facility] Dec 11, 2024 10:30 AM AMBULATORY - MEDICINE [facility] Active, Pending, and Scheduled Orders This section includes a listing of several types of active, pending, and scheduled orders, including clinic medications orders, diagnostic test orders, procedure orders and consult orders; where the start date of the order is 45 days before the date of the Encounter or 45 days after the date of theEncounter. The data comes from all [facility]. Test Date/Time Test Type Test Details Facility Name Aug 02, 2024 12:00 AM Laboratory - Chemistry Order COMPREHENSIVE METABOLIC PANEL GREEN LI/HEP BLD/PLAS PLASMA SP [facility] Aug 02, 2024 12:00 AM Laboratory - Chemistry Order CBC BLOOD STAT SP [facility] Aug 17, 2024 03:47 PM Consult Order [facility] Cons Bedside [facility] Lab Results: +/- 30 days of [...] Result - Unit Interpretation Reference Range Comment Aug 13, 2024 04:27 PM [facility] GLUCOSE,BLOOD-poct (STL) Specimen Type: BLOOD Comment: Test Performed by: [id number] Meter #: [id number] Ordering Provider: SILVIA REDDY Report Released Date/Time: Aug 13, 2024 04:41 PM Reporting Lab: [facility] [place] [id number] Performing Lab: [facility] [place] [address] GLUCOSE,BLOO D-poct (STL) 181 mg/dL H 72-99 Aug 13, 2024 11:33 AM [facility] GLUCOSE,BLOOD-poct (STL) Specimen Type: BLOOD Comment: Test Performed by: [id number] Meter #: [id number] Ordering Provider: SILVIA REDDY Report Released Date/Time: Aug 13, 2024 03:55 PM Reporting Lab: [facility] [facility] [address] Performing Lab: [facility] [facility] [address] GLUCOSE,BLOO D-poct (STL) 140 mg/dL H 72-99 Aug 13, 2024 05:54 AM [facility] GLUCOSE,BLOOD-poct (STL) Specimen Type: BLOOD Comment: Test Performed by: [id number] Meter #: [id number] Ordering Provider: SILVIA REDDY Report Released Date/Time: Aug 13, 2024 06:20 AM Reporting Lab: [facility] [facility] [address] Performing Lab: [facility] [address] [place] [address] GLUCOSE,BLOO D-poct (STL) 112 mg/dL H 72-Aug 12, 2024 04:35 PM [facility] GLUCOSE,BLOOD-poct (STL) Specimen Type: BLOOD Comment: Test Performed by: [id number] Meter #: [id number] Ordering Provider: SILVIA REDDY Report Released Date/Time: Aug 12, 2024 04:47 PM Reporting Lab: [facility] [facility] [address] Performing Lab: [facility] [facility] [address] GLUCOSE,BLOO D-poct (STL) 128 mg/dL H -Aug 12, 2024 11:26 AM [facility] GLUCOSE,BLOOD-poct (STL) Specimen Type: BLOOD Comment: Test Performed by: [id number] Meter #: [id number] Ordering Provider: SILVIA REDDY Report Released Date/Time: Aug 12, 2024 11:45 AM Reporting Lab: [facility] [facility] [address] Performing Lab: [facility] [address] GLUCOSE,BLOO D-poct (STL) 188 mg/dL H -Aug 12, 2024 06:13 AM [facility] GLUCOSE,BLOOD-poct (STL) Specimen Type: BLOOD Comment: Test Performed by: [id number] Meter #: [id number] Ordering Provider: SILVIA REDDY Report Released Date/Time: Aug 12, 2024 06:25 AM Reporting Lab: [facility] [facility] [address] Performing Lab: [facility] [facility] [address] GLUCOSE,BLOO D-poct (STL) 116 mg/dL H -Aug 11, 2024 04:10 PM [facility] GLUCOSE,BLOOD-poct (STL) Specimen Type: BLOOD Comment: Test Performed by: [id number] Meter #: [id number] Ordering Provider: SILVIA REDDY Report Released Date/Time: Aug 11, 2024 04:27 PM Reporting Lab: [facility] [facility] [address] Performing Lab: [facility] [facility] [address] GLUCOSE,BLOO D-poct (STL) 184 mg/dL H 72-99 Aug 11, 2024 01:44 PM [facility] MRSA SURVL NARES DNA Specimen Type: NARES Comment: Qualitative real-time PCR test for the rapid detection of methicillin-resis tant Staphylococcus aureus (MRSA) DNA from nasal swabs. A negative result does not preclude infection with the agent(s) tested and should not be used as the sole basis for treatment or other patient management decisions. A positive test does not necessarily indicate the presence of viable organisms, following bacterial culture to recover the organism for further characterization and susceptibility testing. All results must be combined with clinical observations, patient history, and epidemiological information for final interpretation. Ordering Provider: SILVIA REDDY Report Released Date/Time: Aug 11, 2024 02:03 PM Reporting Lab: [facility] [address] [facility] [address] Performing Lab: [address] [address] MRSA SURVL NARES DNA Negative Negative Jul 20, 2024 11:[address] [facility] APTT Specimen Type: PLASMA No comment entered. Ordering Provider: MANUEL BAIRD Report Released Date/Time: Jul 19, 2024 04:00 PM Reporting Lab: [facility] [address] [place] [phone] Performing Lab: [facility] [address] [place] [phone] APTT 32.1 s 26.7-39.9 Jul 20, 2024 11:[address] [facility] PT/INR NEW (STL-[place]) Specimen Type: PLASMA No comment entered. Ordering Provider: MANUEL BAIRD Report Released Date/Time: Jul 19, 2024 04:00 PM Reporting Lab: [facility] [address] [facility] [address] Performing Lab: [facility] [address] [place] [phone] PROTIME 14.4 s H 9.4-12.5 INR VALUE 1.3 {INR} Jul 20, 2024 11:[address] [facility] CBC Specimen Type: BLOOD No comment entered. Ordering Provider: MANUEL BAIRD Report Released Date/Time: Jul 19, 2024 04:00 PM Reporting Lab: [address] [address] Performing Lab: [address] [address] WBC 4.7 10*3/uL 3.6-11.2 RBC 4.86 10*6/uL [...] 1.6 1.0-7.0 Jul 17, 2024 08:02 AM [facility] BASIC METABOLIC PANEL Specimen Type: PLASMA Comment: No hemolysis noted. Ordering Provider: MARY SERNA Report Released Date/Time: Jun 07, 2024 01:43 PM Reporting Lab: [facility] [address] [place] [phone] Performing Lab: [address] [address] CREATININE 0.85 mg/dL 0.7-1.3 UREA NITROGEN 15.2 mg/dL 9.0-25.0 GLUCOSE 120 mg/dL H 72-99 SODIUM 141 meq/L 136-145 POTASSIUM 4.4 meq/L 3.5-5 CHLORIDE 107 meq/L 98-107 CARBON DIOXIDE 26 meq/L 22-31 CALCIUM 9.2 mg/dL 8.4-10.4 EGFR (CKD-EPI 2020) 92.3 >60 Jun 19, 2024 07:30 AM [facility] PT/INR NEW ([facility]) Specimen Type: PLASMA No comment entered. Ordering Provider: NADEEM PITTS Report Released Date/Time: Jun 12, 2024 10:14 AM Reporting Lab: [address] [address] Performing Lab: [address] [address] PROTIME 13.3 s H 9.4-12.5 INR VALUE 1.2 {INR} Jun 19, 2024 07:30 AM [facility] BASIC METABOLIC PANEL Specimen Type: PLASMA Comment: K result may show a positive bias due to hemolysis. Specimen slightly hemolyzed. Ordering Provider: NADEEM PITTS Report Released Date/Time: Jun 12, 2024 10:14 AM Reporting Lab: [address] [address] Performing Lab: [address] [address] CREATININE 0.85 mg/dL 0.7-1.3 UREA NITROGEN 11.9 mg/dL 9.0-25.0 GLUCOSE 106 mg/dL H 72-99 SODIUM 141 meq/L 136-145 POTASSIUM 4.4 meq/L 3.5-5 CHLORIDE 110 meq/L H 98-107 CARBON DIOXIDE 22 meq/L 22-31 CALCIUM 9.9 mg/dL 8.4-10.4 EGFR (CKD-EPI 2020) 92.3 >60 Jun 19, 2024 07:30 AM [facility] CBC Specimen Type: BLOOD No comment entered. Ordering Provider: NADEEM PITTS Report Released Date/Time: Jun 12, 2024 10:14 AM Reporting Lab: [address] [address] Performing Lab: [address] [address] WBC 5.1 10*3/uL 3.6-11.2 RBC 5.31 10*6/uL [...] 2.3 1.0-7.0 Jun 19, 2024 07:29 AM [facility] GLUCOSE,BLOOD-poct (STL) Specimen Type: BLOOD Comment: Test Performed by: [id number] Meter #: [id number] Ordering Provider: CARROLL HAGEN Report Released Date/Time: Jun 19, 2024 06:58 PM Reporting Lab: [address] [address] Performing Lab: [facility] [address] [facility] [address] GLUCOSE,BLOO D-poct (STL) 108 mg/dL H 72-99 Social History: [...] 19, 2017 ADVANCE DIRECTIVE DISCUSSION ERICK BARDALES [facility]
--- OUTSIDE RECORDS SUMMARY | 2024-11-17 03:58 | XMS_ITS | Encounter Summary ---
Author Name [facility] [place] [facility] [place] Address [address] [place] [address] Care Team Providers Care Greeting Card Maker Name Role Phone MANUEL BAIRD Primary [...] PART A Apr 08, 2017 PART A [id number] ASHLEY WALKER PATIENT Selected Encounter This section includes the information on record at [place] for the Encounter. Date/Time Encounter Type Encounter Description Reason Pro vider Source Jul 17, 2024 03:47 PM Outpatient Encounter ADMIN PAT ACTIVTIES (MASNONCT) IHE Encounter Template Text not used by [place] Plan of Treatment: Future Appointments (+ 6 [...] comes from all [facility]. Appointment Date/Time Appointment Type Appointme nt Facility Name Jul 20, 2024 10:00 AM AMBULATORY - MEDICINE [facility] Aug 02, 2024 09:45 AM AMBULATORY - MEDICINE [facility] Aug 24, 2024 10:00 AM AMBULATORY - MEDICINE [facility] Aug 24, 2024 10:30 AM AMBULATORY - MEDICINE [facility] Aug 30, 2024 09:30 AM AMBULATORY - MEDICINE [facility] Aug 31, 2024 01:00 PM AMBULATORY - SURGERY [facility] Sep 21, 2024 01:30 PM AMBULATORY - MEDICINE [facility] Sep 22, 2024 11:00 AM AMBULATORY - MEDICINE [facility] Sep 29, 2024 12:30 PM AMBULATORY - MEDICINE [facility] Oct 02, 2024 09:30 AM AMBULATORY - MEDICINE [facility] Nov 20, 2024 10:30 AM AMBULATORY - SURGERY [facility] Nov 21, 2024 10:00 AM AMBULATORY - NONE [facility] Dec 11, 2024 10:30 AM AMBULATORY - [...] of theEncounter. The data comes from all [facility]. Test Date/Time Test Type Test Details Facility Name Aug 02, 2024 12:00 AM Laboratory - Chemistry Order CBC BLOOD STAT SP [facility] Aug 02, 2024 12:00 AM Laboratory - Chemistry Order COMPREHENSIVE METABOLIC PANEL GREEN LI/HEP BLD/PLAS PLASMA SP [facility] Aug 17, 2024 03:47 PM Consult Order [facility] Cons Bedside [facility] [...] - Unit Interpretation Reference Range Comment Aug 16, 2024 07:40 PM [facility] GLUCOSE,BLOOD-poct (STL) Specimen Type: BLOOD Comment: Test Performed by: [id number] Meter #: [id number] Ordering Provider: SILVIA REDDY Report Released Date/Time: Aug 16, 2024 08:28 PM Reporting Lab: [facility] [place] [address] Performing Lab: [facility] [place] [address] GLUCOSE,BLOOD- poct (STL) 144 mg/dL H 72-Aug 16, 2024 04:19 PM [facility] GLUCOSE,BLOOD-poct (STL) Specimen Type: BLOOD Comment: Test Performed by: [id number] Meter #: [id number] Ordering Provider: SILVIA REDDY Report Released Date/Time: Aug 16, 2024 04:45 PM Reporting Lab: [facility] [place] [address] Performing Lab: [facility] [place] [address] GLUCOSE,BLOOD- poct (STL) 138 mg/dL H 72-99 Aug 16, 2024 11:52 AM [facility] GLUCOSE,BLOOD-poct (STL) Specimen Type: BLOOD Comment: Test Performed by: [id number] Meter #: [id number] Ordering Provider: SILVIA REDDY Report Released Date/Time: Aug 16, 2024 12:04 PM Reporting Lab: [facility] [place] [address] Performing Lab: [facility] [place] [address] GLUCOSE,BLOOD- poct (STL) 135 mg/dL H -Aug 16, 2024 05:24 AM [facility] GLUCOSE,BLOOD-poct (STL) Specimen Type: BLOOD Comment: Test Performed by: [id number] Meter #: [id number] Ordering Provider: SILVIA REDDY Report Released Date/Time: Aug 16, 2024 05:38 AM Reporting Lab: [facility]1 [facility] [address] Performing Lab: [facility]1 [facility] [address] GLUCOSE,BLOOD- poct (STL) 151 mg/dL H -Aug 15, 2024 07:31 PM [facility] GLUCOSE,BLOOD-poct (STL) Specimen Type: BLOOD Comment: Test Performed by: [id number] Meter #: [id number] Ordering Provider: SILVIA REDDY Report Released Date/Time: Aug 15, 2024 08:07 PM Reporting Lab: [facility]1 [facility] [address] Performing Lab: [facility]1 [facility] [address] GLUCOSE,BLOOD- poct (STL) 173 mg/dL H -Aug 15, 2024 04:18 PM [facility] GLUCOSE,BLOOD-poct (STL) Specimen Type: BLOOD Comment: Test Performed by: [id number] Meter #: [id number] Ordering Provider: SILVIA REDDY Report Released Date/Time: Aug 15, 2024 04:59 PM Reporting Lab: [facility]1 [facility] [address] Performing Lab: [facility]1 [facility] [address] GLUCOSE,BLOOD- poct (STL) 136 mg/dL H -Aug 15, 2024 04:16 PM [facility] GLUCOSE,BLOOD-poct (STL) Specimen Type: BLOOD Comment: Test Performed by: [id number] Meter #: [id number] Ordering Provider: SILVIA REDDY Report Released Date/Time: Aug 15, 2024 04:59 PM Reporting Lab: [facility]1 [facility] [address] Performing Lab: [facility] [address] GLUCOSE,BLOOD- poct (STL) 194 mg/dL H 72-Aug 15, 2024 11:39 AM [facility] GLUCOSE,BLOOD-poct (STL) Specimen Type: BLOOD Comment: Test Performed by: [id number] Meter #: [id number] Ordering Provider: SILVIA REDDY Report Released Date/Time: Aug 15, 2024 12:00 PM Reporting Lab: [facility] [address] Performing Lab: [facility] [address] GLUCOSE,BLOOD- poct (STL) 127 mg/dL H -Aug 15, 2024 05:07 AM [facility] GLUCOSE,BLOOD-poct (STL) Specimen Type: BLOOD Comment: Test Performed by: [id number] Meter #: [id number] Ordering Provider: SILVIA REDDY Report Released Date/Time: Aug 15, 2024 06:14 AM Reporting Lab: [facility]1 [facility] [address] Performing Lab: [facility] #1 [facility] [address] GLUCOSE,BLOOD- poct (STL) 151 mg/dL H -Aug 14, 2024 04:22 PM [facility] GLUCOSE,BLOOD-poct (STL) Specimen Type: BLOOD Comment: Test Performed by: [id number] Meter #: [id number] Ordering Provider: SILVIA REDDY Report Released Date/Time: Aug 14, 2024 04:52 PM Reporting Lab: [facility]1 [facility] [address] Performing Lab: [facility]1 [facility] [address] GLUCOSE,BLOOD- poct (STL) 129 mg/dL H 72-Aug 14, 2024 11:21 AM [facility] GLUCOSE,BLOOD-poct (STL) Specimen Type: BLOOD Comment: Test Performed by: [id number] Meter #: [id number] Ordering Provider: SILVIA REDDY Report Released Date/Time: Aug 14, 2024 11:37 AM Reporting Lab: [facility]1 [facility] [address] Performing Lab: [facility] #1 [facility] [address] GLUCOSE,BLOOD- poct (STL) 135 mg/dL H -Aug 14, 2024 06:59 AM [facility] QUANTIFERON-TB,4 TUBE Specimen Type: BLOOD Comment: normalcy status - Abnormal normalcy status - Abnormal normalcy status - Abnormal NOTE: THIS RESULT IS FLAGGED ABNORMAL Results are indeterminate for response to ESAT-6 and/or CFP-10 test antigens. The Nil tube value reflects the background interferon gamma immune response of the patient's blood sample. This value has been subtracted from the patient's displayed TB and Mitogen results. Lower than expected results with the Mitogen tube prevent false-negative Quantiferon readings by detect- ing a patient with a potential immune suppressive condition and/or suboptimal pre-analytical specimen handling. The TB1 Antigen tube is coated with the M. tuberculosis-spec ific antigens designed to elicit responses from TB antigen primed CD4+ helper T-lymphocytes. The TB2 Antigen tube is coated with the M. tuberculosis-spec ific antigens designed to elicit responses from TB antigen primed CD4+ helper and CD8+ cytotoxic T-lymphocytes. For additional information, please refer to http://[email or web address] [email or web address]/[email or web address] (This link is being provided for information/ educational purposes only.) Test Performed by [employer], [employer] [facility], [address] [place], [place] Tommie Garcia M.D., Ph.D., Director of Laboratories , [facility] [id number] Ordering Provider: SILVIA REDDY Report Released Date/Time: Aug 11, 2024 03:58 PM Reporting Lab: [facility] [address] [place] [address] Performing Lab: [facility] [address] [facility] .NIL - QUANTIFERON 0.04 [IU]/mL .MITOGEN-NIL 0.39 [IU]/mL .QUANTIFERON INDETERMINATE NEGATIVE .TB1-NIL <0.00 [IU]/mL .TB2-NIL <0.00 [IU]/mL Aug 14, 2024 06:59 AM [facility] MAGNESIUM Specimen Type: PLASMA Comment: No hemolysis noted. Ordering Provider: SILVIA REDDY Report Released Date/Time: Aug 11, 2024 03:58 PM Reporting Lab: [facility]1 [facility] [address] Performing Lab: [facility]1 [facility] [address] MAGNESIUM 1.9 mg/dL 1.6-2.6 Aug 14, 2024 06:59 AM [facility] FOLATE (STL-MA) Specimen Type: SERUM No comment entered. Ordering Provider: SILVIA REDDY Report Released Date/Time: Aug 11, 2024 03:58 PM Reporting Lab: [facility]1 [facility] [address] Performing Lab: [facility]1 [facility] [address] FOLATE (STL-MA) 6.8 ng/mL L 7-20 Aug 14, 2024 06:59 AM [facility] B12 Specimen Type: SERUM No comment entered. Ordering Provider: SILVIA REDDY Report Released Date/Time: Aug 11, 2024 03:58 PM Reporting Lab: [facility]1 [facility] [address] Performing Lab: [facility]1 [facility] [address] B12 757 pg/mL 213-816 Aug 14, 2024 06:59 AM [facility] VITAMIN D, 25-HYDROXY Specimen Type: SERUM No comment entered. Ordering Provider: SILVIA REDDY Report Released Date/Time: Aug 11, 2024 03:58 PM Reporting Lab: [facility]1 [facility] [address] Performing Lab: [facility]1 [facility] [address] VITAMIN D, 25-HYDROXY 8.9 ng/mL L 30-96 Aug 14, 2024 06:59 AM [facility] COMPREHENSIVE METABOLIC PANEL Specimen Type: PLASMA Comment: No hemolysis noted. Ordering Provider: SILVIA REDDY Report Released Date/Time: Aug 11, 2024 03:58 PM Reporting Lab: [facility]1 [facility] [address] Performing Lab: [facility]1 [facility] [address] CREATININE 0.75 mg/dL 0.70-1.30 UREA NITROGEN 13.6 mg/dL 9.0-25.0 GLUCOSE 109 mg/dL H 72-99 SODIUM 134 meq/L L 136-145 POTASSIUM 4.1 meq/L 3.5-5.0 CHLORIDE 103 meq/L 98-107 CARBON DIOXIDE 21 meq/L L 22-31 CALCIUM 8.7 mg/dL 8.4-10.4 PROTEIN 6.5 g/dL 6.0-8.6 ALBUMIN 2.9 g/dL L 3.4-5.0 TOTAL BILIRUBIN 0.5 mg/dL 0.2-1.2 ALKALINE PHOSPHATASE 144 U/L 40-150 AST/SGOT 29 U/L 5-34 ALT/SGPT 19 U/L 8-40 EGFR (CKD-EPI 2020) 95.88 >60 Aug 14, 2024 06:[address] [facility] CBC Specimen Type: BLOOD No comment entered. Ordering Provider: SILVIA REDDY Report Released Date/Time: Aug 11, 2024 03:58 PM Reporting Lab: [facility]1 [facility] [address] Performing Lab: [facility]1 [facility] [address] WBC 4.1 10*3/uL 3.6-11.2 RBC 3.20 10*6/uL L 4.10-5.70 HGB 8.0 g/dL L 13.1-16.8 HCT 25.6 L 38.2-48.4 MCV 80.0 fL 80.0-100.0 MCH 25.0 pg L 27.0-34.0 MCHC 31.3 g/dL L 33.0-36.0 PLT 167 10*3/uL 150-400 MPV 9.1 fL 7.5-11.2 RDW 15.9 H 11.8-15.1 LYMPHOCYTES, AUTO % 23 MONOCYTES, AUTO % 11 NEUTROPHILS, AUTO % 56 EOSINOPHILS, AUTO % 8 BASOPHILS, AUTO % 2 LYMPHOCYTES, ABSOLUTE 0.94 10*3/uL 0.77-4.50 MONOCYTES, ABSOLUTE 0.46 10*3/uL 0.19-0.80 NEUTROPHILS, ABSOLUTE 2.27 10*3/uL 2.10-8.00 EOSINOPHILS, ABSOLUTE 0.32 10*3/uL 0.00-0.60 BASOPHILS, ABSOLUTE 0.07 10*3/uL 0.00-0.20 Aug 14, 2024 05:08 AM [facility] GLUCOSE,BLOOD-poct (STL) Specimen Type: BLOOD Comment: Test Performed by: [id number] Meter #: [id number] Ordering Provider: SILVIA REDDY Report Released Date/Time: Aug 14, 2024 05:52 AM Reporting Lab: [facility]1 [facility] [address] Performing Lab: [facility]1 [facility] [address] GLUCOSE,BLOOD- poct (STL) 135 mg/dL H 72-99 Aug 13, 2024 04:27 PM [facility] GLUCOSE,BLOOD-poct (STL) Specimen Type: BLOOD Comment: Test Performed by: [id number] Meter #: [id number] Ordering Provider: SILVIA REDDY Report Released Date/Time: Aug 13, 2024 04:41 PM Reporting Lab: [facility] #1 [facility] [address] Performing Lab: [facility] [address] GLUCOSE,BLOOD- poct (STL) 181 mg/dL H Aug 13, 2024 11:33 AM [facility] GLUCOSE,BLOOD-poct (STL) Specimen Type: BLOOD Comment: Test Performed by: [id number] Meter #: [id number] Ordering Provider: SILVIA REDDY Report Released Date/Time: Aug 13, 2024 03:55 PM Reporting Lab: [facility] #1 [facility] [address] Performing Lab: [facility] [address] GLUCOSE,BLOOD- poct (STL) 140 mg/dL H Aug 13, 2024 05:54 AM [facility] GLUCOSE,BLOOD-poct (STL) Specimen Type: BLOOD Comment: Test Performed by: [id number] Meter #: [id number] Ordering Provider: SILVIA REDDY Report Released Date/Time: Aug 13, 2024 06:20 AM Reporting Lab: [facility] #1 [facility] [address] Performing Lab: [facility] #1 [facility] [address] GLUCOSE,BLOOD- poct (STL) 112 mg/dL H Aug 12, 2024 04:35 PM [facility] GLUCOSE,BLOOD-poct (STL) Specimen Type: BLOOD Comment: Test Performed by: [id number] Meter #: [id number] Ordering Provider: SILVIA REDDY Report Released Date/Time: Aug 12, 2024 04:47 PM Reporting Lab: [facility] #[address] [place] [address] Performing Lab: [facility] [place] [address] GLUCOSE,BLOOD- poct (STL) 128 mg/dL H 72-Aug 12, 2024 11:26 AM [facility] GLUCOSE,BLOOD-poct (STL) Specimen Type: BLOOD Comment: Test Performed by: [id number] Meter #: [id number] Ordering Provider: SILVIA REDDY Report Released Date/Time: Aug 12, 2024 11:45 AM Reporting Lab: [facility] [place] [address] Performing Lab: [facility] [place] [address] GLUCOSE,BLOOD- poct (STL) 188 mg/dL H -Aug 12, 2024 06:13 AM [facility] GLUCOSE,BLOOD-poct (STL) Specimen Type: BLOOD Comment: Test Performed by: [id number] Meter #: [id number] Ordering Provider: SILVIA REDDY Report Released Date/Time: Aug 12, 2024 06:25 AM Reporting Lab: [facility] [place] [address] Performing Lab: [facility] [place] [address] GLUCOSE,BLOOD- poct (STL) 116 mg/dL H 72-99 Aug 11, 2024 04:10 PM [facility] GLUCOSE,BLOOD-poct (STL) Specimen Type: BLOOD Comment: Test Performed by: [id number] Meter #: [id number] Ordering Provider: SILVIA REDDY Report Released Date/Time: Aug 11, 2024 04:27 PM Reporting Lab: [facility] [place] [address] Performing Lab: [facility] [facility] [address] GLUCOSE,BLOOD- poct (STL) 184 mg/dL H 72-99 Aug 11, 2024 01:44 PM [facility] MRSA SURVL NARES DNA Specimen Type: NARES [...] Aug 11, 2024 02:03 PM Reporting Lab: [address] [address] Performing Lab: [address] [address] MRSA SURVL NARES DNA Negative Negative Jul 20, 2024 11:18 AM [facility] APTT Specimen Type: PLASMA No comment entered. Ordering Provider: MANUEL BAIRD Report Released Date/Time: Jul 19, 2024 04:00 PM Reporting Lab: [address] [address] Performing Lab: [facility] [address] [place] [address] APTT 32.1 s 26.7-39.9 Jul 20, 2024 11:18 AM [facility] PT/INR NEW (STL-MA) Specimen Type: PLASMA No comment entered. Ordering Provider: MANUEL BAIRD Report Released Date/Time: Jul 19, 2024 04:00 PM Reporting Lab: [facility] [address] [place] [address] Performing Lab: [facility] [address] [place] [address] PROTIME 14.4 s H 9.4-12.5 INR VALUE 1.3 {INR} Jul 20, 2024 11:18 AM [facility] CBC Specimen Type: BLOOD No comment entered. Ordering Provider: MANUEL BAIRD Report Released Date/Time: Jul 19, 2024 04:00 PM Reporting Lab: [facility] [address] [place] [address] Performing Lab: [address] [address] WBC 4.7 10*3/uL 3.6-11.2 RBC 4.86 10*6/uL [...] Jun 07, 2024 01:43 PM Reporting Lab: [address] [address] Performing Lab: [address] [address] CREATININE 0.85 mg/dL 0.7-1.3 UREA NITROGEN 15.2 mg/dL 9.0-25.0 GLUCOSE 120 mg/dL H 72-99 SODIUM 141 meq/L 136-145 POTASSIUM 4.4 meq/L 3.5-5 CHLORIDE 107 meq/L 98-107 CARBON DIOXIDE 26 meq/L 22-31 CALCIUM 9.2 mg/dL 8.4-10.4 EGFR (CKD-EPI 2020) 92.3 >60 Jun 19, 2024 07:30 AM [facility] PT/INR NEW (STL-[place]) Specimen Type: PLASMA No comment entered. Ordering Provider: NADEEM PITTS Report Released Date/Time: Jun 12, 2024 10:14 AM Reporting Lab: [address] [address] Performing Lab: [address] [address] PROTIME 13.3 s H 9.4-12.5 INR VALUE 1.2 {INR} Jun 19, 2024 07:30 AM [facility] BASIC METABOLIC PANEL Specimen Type: PLASMA Comment: K result may show a positive bias due to hemolysis. Specimen slightly hemolyzed. Ordering Provider: NADEEM PITTS Report Released Date/Time: Jun 12, 2024 10:14 AM Reporting Lab: [place] [id number] [place] [address] Performing Lab: [address] [address] CREATININE 0.85 mg/dL 0.7-1.3 UREA NITROGEN 11.9 [...] Jun 12, 2024 10:14 AM Reporting Lab: [facility] [address] [facility] [place] [address] Performing Lab: [place] [address] [facility] [place] [address] WBC 5.1 10*3/uL 3.6-11.2 RBC 5.31 10*6/uL [...] Specimen Type: BLOOD Comment: Test Performed by: [id number] Meter #: [id number] Ordering Provider: CARROLL HAGEN Report Released Date/Time: Jun 19, 2024 06:58 PM Reporting Lab: [facility] [place] [facility] [place] [address] Performing Lab: [address] [address] GLUCOSE,BLOOD- poct (STL) 108 mg/dL H 72-99 Social History: [...] this document. The data comes from all [facility]. Date Advance Directives Provider Source Jan 19, 2017 ADVANCE DIRECTIVE DISCUSSION ERICK BARDALES [facility] Encounter Notes: All associated encounter notes This section contains the clinical notes associated to the Encounter. Date/Time Encounter Note(s) Provider Source Jul 18, 2024 01:43 PM ADDENDUM: LOCAL TITLE: Addendum STANDARD TITLE: ADDENDUM DATE OF NOTE: JUL 18, 2024@13:43:21 ENTRY DATE: JUL 18, 2024@13:43:22 AUTHOR: NEETU MARTINS COSIGNER: URGENCY: STATUS: COMPLETED RN from Pre op dept is following up with lab results prior to surgery. Placed caller on hold and phone disconnected. Alerting Malini ANDREA. /shen/ NEETU GUTIERREZ Signed: 07/18/2024 13:44 Receipt Acknowledged By: 07/19/2024 14:55 /camryn PHILLIPS NURSE --- Original Document --- 07/17/24 ADMINISTRATIVE STL: RECEIVED FAX FROM [facility] ON 07.17.24 4 PAGES-PRE OPP ASSESMENT VISIT /shen/ VINAY GUTIERREZ Signed: 07/17/2024 15:49 Receipt Acknowledged By: 07/19/2024 14:55 /camryn [place] REGISTERED NURSE 07/18/2024 ADDENDUM STATUS: COMPLETED rn called back in, sent alert to [place]. callback [phone] /shen/ ANGELA GUTIERREZ Signed: 07/18/2024 13:49 07/19/2024 ADDENDUM STATUS: UNSIGNED You may not VIEW this UNSIGNED Addendum. NEETU MARTINS [facility] Jul 17, 2024 03:47 PM ADMINISTRATIVE NOT E: LOCAL TITLE: ADMINISTRATIVE STL STANDARD TITLE: ADMINISTRATIVE NOTE DATE OF NOTE: JUL 17, 2024@15:47 ENTRY DATE: JUL 17, 2024@15:47:12 AUTHOR: VINAY GOEL EXP COSIGNER: URGENCY: STATUS: COMPLETED ADMINISTRATIVE STL Has ADDENDA RECEIVED FAX FROM [facility] ON 07.17.24 4 PAGES-PRE OPP ASSESMENT VISIT /shen/ VINAY GUTIERREZ Signed: 07/17/2024 15:49 Receipt Acknowledged By: 07/19/2024 14:55 /[place] REGISTERED NURSE 07/18/2024 ADDENDUM STATUS: COMPLETED RN from Pre op dept is following up with lab results prior to surgery. Placed caller on hold and phone disconnected. Alerting Malini ANDREA. /shen/ NEETU GUTIERREZ Signed: 07/18/2024 13:44 Receipt Acknowledged By: 07/19/2024 14:55 /[place] REGISTERED NURSE 07/18/2024 ADDENDUM STATUS: COMPLETED rn called back in, sent alert to [place] callback [phone] /shen/ ANGELA GUTIERREZ Signed: 07/18/2024 13:49 07/19/2024 ADDENDUM STATUS: COMPLETED Patient Contacted, See 07/19/24 V15 PACT Telephone Contact Note /[place] REGISTERED NURSE Signed: 07/19/2024 14:55 VINAY GOEL [facility]
--- OUTSIDE RECORDS SUMMARY | 2024-11-17 03:58 | XMS_ITS | Encounter Summary ---
Author Name [facility] [place] Organization [facility] [place] Address [address] [place] [address] Care Team Providers Care Supervisor Wet Pour Name Role Phone MANUEL BAIRD Primary Care [...] PART A Apr 08, 2017 PART A [id number] ASHLEY FINK PATIENT Selected Encounter This section includes the information on record at [place] for the Encounter. Date/Time Encounter Type Encounter Description Reason Pro vider Source Aug 02, 2024 11:43 AM Outpatient Encounter ADMIN PAT ACTIVTIES (MASNONCT) IHE Encounter Template Text not used by [place] Plan of Treatment: Future Appointments (+ 6 [...] 20 appointments. The data comes from all [facility]. Appointment Date/Time Appointment Type Appointme nt Facility Name Aug 24, 2024 10:00 AM AMBULATORY - MEDICINE [facility] Aug 24, 2024 10:30 AM AMBULATORY - MEDICINE [facility] Aug 30, 2024 09:30 AM AMBULATORY - MEDICINE [facility] Aug 31, 2024 01:00 PM AMBULATORY - SURGERY [facility] Sep 21, 2024 01:30 PM AMBULATORY - MEDICINE [facility] Sep 22, 2024 11:00 AM AMBULATORY - MEDICINE [facility] Sep 29, 2024 12:30 PM AMBULATORY - MEDICINE [facility] Oct 02, 2024 09:30 AM AMBULATORY - MEDICINE [facility] Nov 20, 2024 10:30 AM AMBULATORY - SURGERY [facility] Nov 21, 2024 10:00 AM AMBULATORY - NONE [facility] Dec 11, 2024 10:30 AM AMBULATORY - MEDICINE [facility] Active, Pending, and Scheduled Orders This section includes a listing of several types of active, pending, and scheduled orders, including clinic medications orders, diagnostic test orders, procedure orders and consult orders; where the start date of the order is 45 days before the date of the Encounter or 45 days after the date of theEncounter. The data comes from all [facility]. Test Date/Time Test Type Test Details Facility Name Aug 02, 2024 12:00 AM Laboratory - Chemistry Order CBC BLOOD STAT SP [facility] Aug 02, 2024 12:00 AM Laboratory - Chemistry Order COMPREHENSIVE METABOLIC PANEL GREEN LI/HEP BLD/PLAS PLASMA SP [facility] Aug 17, 2024 03:47 PM Consult Order [facility] Cons Bedside [facility] Lab Results: +/- 30 days [...] - Unit Interpretation Reference Range Comment Aug 23, 2024 08:21 AM [facility] MAGNESIUM Specimen Type: PLASMA No comment entered. Ordering Provider: SILVIA REDDY Report Released Date/Time: Aug 22, 2024 11:26 AM Reporting Lab: [facility] [address] Performing Lab: [facility] [address] MAGNESIUM 1.8 mg/dL 1.6-2.6 Aug 23, 2024 08:21 AM [facility] CBC Specimen Type: BLOOD No comment entered. Ordering Provider: SILVIA REDDY Report Released Date/Time: Aug 22, 2024 11:19 AM Reporting Lab: [facility] [address] Performing Lab: [facility] [address] WBC 4.0 10*3/uL 3.6-11.2 RBC 3.65 10*6/uL L 4.10-5.70 HGB 8.6 g/dL L 13.1-16.8 HCT 29.0 L 38.2-48.4 MCV 79.5 fL L 80.0-100.0 MCH 23.6 pg L 27.0-34.0 MCHC 29.7 g/dL L 33.0-36.0 PLT 134 10*3/uL L 150-400 MPV 9.6 fL 7.5-11.2 RDW 16.1 H 11.8-15.1 LYMPHOCYTES, AUTO % 27 MONOCYTES, AUTO % 10 NEUTROPHILS, AUTO % 50 EOSINOPHILS, AUTO % 12 BASOPHILS, AUTO % 1 LYMPHOCYTES, ABSOLUTE 1.06 10*3/uL 0.77-4.50 MONOCYTES, ABSOLUTE 0.38 10*3/uL 0.19-0.80 NEUTROPHILS, ABSOLUTE 1.99 10*3/uL L 2.10-8.00 EOSINOPHILS, ABSOLUTE 0.47 10*3/uL 0.00-0.60 BASOPHILS, ABSOLUTE 0.04 10*3/uL 0.00-0.20 Aug 23, 2024 05:12 AM [facility] GLUCOSE,BLOOD-poct (STL) Specimen Type: BLOOD Comment: Test Performed by: [id number] Meter #: [id number] Ordering Provider: SILVIA REDDY Report Released Date/Time: Aug 23, 2024 05:23 AM Reporting Lab: [facility] [address] Performing Lab: [facility]1 [facility] [address] GLUCOSE,BLOOD- poct (STL) 99 mg/dL 72-99 Aug 23, 2024 02:45 AM [facility] OCCULT BLOOD FIT X1 SCREEN Specimen Type: FECES No comment entered. Ordering Provider: SILVIA REDDY Report Released Date/Time: Aug 22, 2024 11:23 AM Reporting Lab: [place] [id number] [facility] [address] Performing Lab: [place] [address] [facility] [address] OCCULT BLOOD (FIT) #1 OF 1 Negative Negative Aug 22, 2024 07:30 PM [facility] OCCULT BLOOD FIT X1 SCREEN Specimen Type: FECES No comment entered. Ordering Provider: SILVIA REDDY Report Released Date/Time: Aug 22, 2024 11:23 AM Reporting Lab: [facility] [address] [facility] [address] Performing Lab: [facility] [address] [facility] [address] OCCULT BLOOD (FIT) #1 OF 1 Negative Negative Aug 22, 2024 06:15 PM [facility] OCCULT BLOOD FIT X1 SCREEN Specimen Type: FECES No comment entered. Ordering Provider: SILVIA REDDY Report Released Date/Time: Aug 22, 2024 11:23 AM Reporting Lab: [place] [id number] [facility] [address] Performing Lab: [facility] [address] [facility] [address] OCCULT BLOOD (FIT) #1 OF 1 Negative Negative Aug 22, 2024 04:24 PM [facility] GLUCOSE,BLOOD-poct (STL) Specimen Type: BLOOD Comment: Test Performed by: [id number] Meter #: [id number] Ordering Provider: SILVIA REDDY Report Released Date/Time: Aug 22, 2024 04:36 PM Reporting Lab: [facility] [address] Performing Lab: [facility] [address] GLUCOSE,BLOOD- poct (STL) 176 mg/dL H -Aug 22, 2024 04:23 PM [facility] GLUCOSE,BLOOD-poct (STL) Specimen Type: BLOOD Comment: Test Performed by: [id number] Meter #: [id number] Ordering Provider: SILVIA REDDY Report Released Date/Time: Aug 22, 2024 04:36 PM Reporting Lab: [facility] [address] Performing Lab: [facility] [address] GLUCOSE,BLOOD- poct (STL) 221 mg/dL H -Aug 22, 2024 11:15 AM [facility] GLUCOSE,BLOOD-poct (STL) Specimen Type: BLOOD Comment: Test Performed by: [id number] Meter #: [id number] Ordering Provider: SILVIA REDDY Report Released Date/Time: Aug 22, 2024 11:27 AM Reporting Lab: [facility] [address] Performing Lab: [facility] [address] GLUCOSE,BLOOD- poct (STL) 140 mg/dL H 72-Aug 22, 2024 08:[address] [facility] FERRITIN Specimen Type: SERUM No comment entered. Ordering Provider: JUDIT PERKINS Report Released Date/Time: Aug 18, 2024 11:01 AM Reporting Lab: [facility] [address] [facility] [address] Performing Lab: [facility] [address] [facility] [address] FERRITIN 79.50 ng/mL 22-275 Aug 22, 2024 08:03 AM [facility] IRON/TIBC PROFILE Specimen Type: SERUM No comment entered. Ordering Provider: JUDIT PERKINS Report Released Date/Time: Aug 18, 2024 11:01 AM Reporting Lab: [facility] [address] [facility] [address] Performing Lab: [address] [address] TIBC 283 ug/dL 250-450 TRANSFERRIN 226 mg/dL 163-344 IRON SATURATION 7 L 20-50 IRON 19 ug/dL L 65-175 Aug 22, 2024 08:03 AM [facility] B12 Specimen Type: SERUM No comment entered. Ordering Provider: JUDIT PERKINS Report Released Date/Time: Aug 18, 2024 11:01 AM Reporting Lab: [facility] [address] Performing Lab: [facility]1 [facility] [address] B12 631 pg/mL 213-816 Aug 22, 2024 08:03 AM [facility] COMPREHENSIVE METABOLIC PANEL Specimen Type: PLASMA Comment: No hemolysis noted. Ordering Provider: SILVIA REDDY Report Released Date/Time: Aug 17, 2024 01:18 PM Reporting Lab: [facility] [address] [facility] [address] Performing Lab: [address] [address] CREATININE 0.80 mg/dL 0.7-1.3 UREA NITROGEN 9.7 mg/dL 9.0-25.0 GLUCOSE 135 mg/dL H 72-99 SODIUM 138 meq/L 136-145 POTASSIUM 3.6 meq/L 3.5-5 CHLORIDE 105 meq/L 98-107 CARBON DIOXIDE 23 meq/L 22-31 CALCIUM 8.7 mg/dL 8.4-10.4 PROTEIN 6.3 g/dL 6-8.6 ALBUMIN 2.9 g/dL L 3.4-5 TOTAL BILIRUBIN 0.4 mg/dL 0.2-1.2 ALKALINE PHOSPHATASE 131 U/L 40-150 AST/SGOT 33 U/L 5-34 ALT/SGPT 22 U/L 8-40 EGFR (CKD-EPI 2020) 94.0 >60 Aug 22, 2024 08:03 AM [facility] CBC Specimen Type: BLOOD No comment entered. Ordering Provider: SILVIA REDDY Report Released Date/Time: Aug 17, 2024 01:18 PM Reporting Lab: [facility] [address] Performing Lab: [facility] [address] WBC 3.5 10*3/uL L 3.6-11.2 RBC 3.23 10*6/uL L 4.10-5.70 HGB 7.6 g/dL L 13.1-16.8 HCT 26.0 L 38.2-48.4 MCV 80.5 fL 80.0-100.0 MCH 23.5 pg L 27.0-34.0 MCHC 29.2 g/dL L 33.0-36.0 PLT 112 10*3/uL L 150-400 MPV 8.9 fL 7.5-11.2 RDW 16.1 H 11.8-15.1 LYMPHOCYTES, AUTO % 23 MONOCYTES, AUTO % 10 NEUTROPHILS, AUTO % 50 EOSINOPHILS, AUTO % 14 BASOPHILS, AUTO % 1 LYMPHOCYTES, ABSOLUTE 0.79 10*3/uL 0.77-4.50 MONOCYTES, ABSOLUTE 0.36 10*3/uL 0.19-0.80 NEUTROPHILS, ABSOLUTE 1.75 10*3/uL L 2.10-8.00 EOSINOPHILS, ABSOLUTE 0.49 10*3/uL 0.00-0.60 BASOPHILS, ABSOLUTE 0.05 10*3/uL 0.00-0.20 NRBC% 0 Aug 22, 2024 05:03 AM [facility] GLUCOSE,BLOOD-poct (STL) Specimen Type: BLOOD Comment: Test Performed by: [id number] Meter #: [id number] Ordering Provider: SILVIA REDDY Report Released Date/Time: Aug 22, 2024 06:17 AM Reporting Lab: [facility] #1 [facility] [address] Performing Lab: [facility] #1 [facility] [address] GLUCOSE,BLOOD- poct (STL) 170 mg/dL H -Aug 21, 2024 04:32 PM [facility] GLUCOSE,BLOOD-poct (STL) Specimen Type: BLOOD Comment: Test Performed by: [id number] Meter #: [id number] Ordering Provider: SILVIA REDDY Report Released Date/Time: Aug 21, 2024 04:49 PM Reporting Lab: [facility] [address] Performing Lab: [facility] [address] GLUCOSE,BLOOD- poct (STL) 169 mg/dL H 72-Aug 21, 2024 11:53 AM [facility] GLUCOSE,BLOOD-poct (STL) Specimen Type: BLOOD Comment: Test Performed by: [id number] Meter #: [id number] Ordering Provider: SILVIA REDDY Report Released Date/Time: Aug 21, 2024 12:11 PM Reporting Lab: [facility] [address] Performing Lab: [facility] #1 [facility] [address] GLUCOSE,BLOOD- poct (STL) 149 mg/dL H 72-99 Aug 21, 2024 05:10 AM [facility] GLUCOSE,BLOOD-poct (STL) Specimen Type: BLOOD Comment: Test Performed by: [id number] Meter #: [id number] Ordering Provider: SILVIA REDDY Report Released Date/Time: Aug 21, 2024 05:27 AM Reporting Lab: [facility] [address] [place] [address] Performing Lab: [facility] [address] [place] [address] GLUCOSE,BLOOD- poct (STL) 118 mg/dL H 72-99 Aug 20, 2024 04:38 PM [facility] GLUCOSE,BLOOD-poct (STL) Specimen Type: BLOOD Comment: Test Performed by: [id number] Meter #: [id number] Ordering Provider: SILVIA REDDY Report Released Date/Time: Aug 21, 2024 01:55 AM Reporting Lab: [facility] #1 [place] [address] Performing Lab: [facility] [address] [place] [address] GLUCOSE,BLOOD- poct (STL) 169 mg/dL H 72-Aug 20, 2024 04:36 PM [facility] GLUCOSE,BLOOD-poct (STL) Specimen Type: BLOOD Comment: Test Performed by: [id number] Meter #: [id number] Ordering Provider: SILVIA REDDY Report Released Date/Time: Aug 21, 2024 01:55 AM Reporting Lab: [facility] #1 [place] [address] Performing Lab: [facility] [place] [address] GLUCOSE,BLOOD- poct (STL) 395 mg/dL H 72-99 Aug 20, 2024 11:45 AM [facility] GLUCOSE,BLOOD-poct (STL) Specimen Type: BLOOD Comment: Test Performed by: [id number] Meter #: [id number] Ordering Provider: SILVIA REDDY Report Released Date/Time: Aug 20, 2024 11:56 AM Reporting Lab: [facility]1 [facility] [address] Performing Lab: [facility] #1 [facility] [address] GLUCOSE,BLOOD- poct (STL) 169 mg/dL H 72-Aug 20, 2024 05:06 AM [facility] GLUCOSE,BLOOD-poct (STL) Specimen Type: BLOOD Comment: Test Performed by: [id number] Meter #: [id number] Ordering Provider: SILVIA REDDY Report Released Date/Time: Aug 20, 2024 06:05 AM Reporting Lab: [facility]1 [facility] [address] Performing Lab: [facility] #1 [facility] [address] GLUCOSE,BLOOD- poct (STL) 115 mg/dL H -Aug 19, 2024 04:23 PM [facility] GLUCOSE,BLOOD-poct (STL) Specimen Type: BLOOD Comment: Test Performed by: [id number] Meter #: [id number] Ordering Provider: SILVIA REDDY Report Released Date/Time: Aug 19, 2024 05:54 PM Reporting Lab: [facility] #1 [facility] [address] Performing Lab: [facility] #1 [facility] [address] GLUCOSE,BLOOD- poct (STL) 137 mg/dL H -Aug 19, 2024 11:28 AM [facility] GLUCOSE,BLOOD-poct (STL) Specimen Type: BLOOD Comment: Test Performed by: [id number] Meter #: [id number] Ordering Provider: SILVIA REDDY Report Released Date/Time: Aug 19, 2024 11:51 AM Reporting Lab: [facility] [address] Performing Lab: [facility] #1 [facility] [address] GLUCOSE,BLOOD- poct (STL) 190 mg/dL H Aug 19, 2024 05:21 AM [facility] GLUCOSE,BLOOD-poct (STL) Specimen Type: BLOOD Comment: Test Performed by: [id number] Meter #: [id number] Ordering Provider: SILVIA REDDY Report Released Date/Time: Aug 19, 2024 05:56 AM Reporting Lab: [facility] #1 [facility] [address] Performing Lab: [facility] #1 [facility] [address] GLUCOSE,BLOOD- poct (STL) 130 mg/dL H Aug 18, 2024 04:49 PM [facility] GLUCOSE,BLOOD-poct (STL) Specimen Type: BLOOD Comment: Test Performed by: [id number] Meter #: [id number] Ordering Provider: SILVIA REDDY Report Released Date/Time: Aug 18, 2024 05:01 PM Reporting Lab: [facility] [address] Performing Lab: [facility] [address] GLUCOSE,BLOOD- poct (STL) 129 mg/dL H Aug 18, 2024 11:23 AM [facility] GLUCOSE,BLOOD-poct (STL) Specimen Type: BLOOD Comment: Test Performed by: [id number] Meter #: [id number] Ordering Provider: SILVIA REDDY Report Released Date/Time: Aug 18, 2024 11:41 AM Reporting Lab: [facility] #1 [facility] [address] Performing Lab: [facility] [address] GLUCOSE,BLOOD- poct (STL) 180 mg/dL H Aug 18, 2024 05:08 AM [facility] GLUCOSE,BLOOD-poct (STL) Specimen Type: BLOOD Comment: Test Performed by: [id number] Meter #: [id number] Ordering Provider: SILVIA REDDY Report Released Date/Time: Aug 18, 2024 05:31 AM Reporting Lab: [facility] #1 [place] [id number] Performing Lab: [facility]1 [facility] [address] GLUCOSE,BLOOD- poct (STL) 127 mg/dL H -Aug 17, 2024 07:32 PM [facility] GLUCOSE,BLOOD-poct (STL) Specimen Type: BLOOD Comment: Test Performed by: [id number] Meter #: [id number] Ordering Provider: SILVIA REDDY Report Released Date/Time: Aug 17, 2024 07:59 PM Reporting Lab: [facility] #1 [place] [address] Performing Lab: [facility] #1 [place] [address] GLUCOSE,BLOOD- poct (STL) 154 mg/dL H -Aug 17, 2024 04:24 PM [facility] GLUCOSE,BLOOD-poct (STL) Specimen Type: BLOOD Comment: Test Performed by: [id number] Meter #: [id number] Ordering Provider: SILVIA REDDY Report Released Date/Time: Aug 17, 2024 04:35 PM Reporting Lab: [facility] #1 [place] [address] Performing Lab: [facility] #1 [place] [address] GLUCOSE,BLOOD- poct (STL) 178 mg/dL H -Aug 17, 2024 05:09 AM [facility] GLUCOSE,BLOOD-poct (STL) Specimen Type: BLOOD Comment: Test Performed by: [id number] Meter #: [id number] Ordering Provider: SILVIA REDDY Report Released Date/Time: Aug 17, 2024 05:54 AM Reporting Lab: [facility] #1 [facility] [address] Performing Lab: [facility] #1 [facility] [address] GLUCOSE,BLOOD- poct (STL) 124 mg/dL H 72-Aug 16, 2024 07:40 PM [facility] GLUCOSE,BLOOD-poct (STL) Specimen Type: BLOOD Comment: Test Performed by: [id number] Meter #: [id number] Ordering Provider: SILVIA REDDY Report Released Date/Time: Aug 16, 2024 08:28 PM Reporting Lab: [facility] #1 [facility] [address] Performing Lab: [facility] #1 [facility] [address] GLUCOSE,BLOOD- poct (STL) 144 mg/dL H -Aug 16, 2024 04:19 PM [facility] GLUCOSE,BLOOD-poct (STL) Specimen Type: BLOOD Comment: Test Performed by: [id number] Meter #: [id number] Ordering Provider: SILVIA REDDY Report Released Date/Time: Aug 16, 2024 04:45 PM Reporting Lab: [facility] #1 [facility] [address] Performing Lab: [facility] #1 [facility] [address] GLUCOSE,BLOOD- poct (STL) 138 mg/dL H Aug 16, 2024 11:52 AM [facility] GLUCOSE,BLOOD-poct (STL) Specimen Type: BLOOD Comment: Test Performed by: [id number] Meter #: [id number] Ordering Provider: SILVIA REDDY Report Released Date/Time: Aug 16, 2024 12:04 PM Reporting Lab: [facility]1 [facility] [address] Performing Lab: [facility] #1 [facility] [address] GLUCOSE,BLOOD- poct (STL) 135 mg/dL H Aug 16, 2024 05:24 AM [facility] GLUCOSE,BLOOD-poct (STL) Specimen Type: BLOOD Comment: Test Performed by: [id number] Meter #: [id number] Ordering Provider: SILVIA REDDY Report Released Date/Time: Aug 16, 2024 05:38 AM Reporting Lab: [facility] #1 [facility] [address] Performing Lab: [facility] #1 [facility] [address] GLUCOSE,BLOOD- poct (STL) 151 mg/dL H Aug 15, 2024 07:31 PM [facility] GLUCOSE,BLOOD-poct (STL) Specimen Type: BLOOD Comment: Test Performed by: [id number] Meter #: [id number] Ordering Provider: SILVIA REDDY Report Released Date/Time: Aug 15, 2024 08:07 PM Reporting Lab: [facility]1 [facility] [address] Performing Lab: [facility]1 [facility] [address] GLUCOSE,BLOOD- poct (STL) 173 mg/dL H Aug 15, 2024 04:18 PM [facility] GLUCOSE,BLOOD-poct (STL) Specimen Type: BLOOD Comment: Test Performed by: [id number] Meter #: [id number] Ordering Provider: SILVIA REDDY Report Released Date/Time: Aug 15, 2024 04:59 PM Reporting Lab: [facility]1 [facility] [address] Performing Lab: [facility]1 [facility] [address] GLUCOSE,BLOOD- poct (STL) 136 mg/dL H Aug 15, 2024 04:16 PM [facility] GLUCOSE,BLOOD-poct (STL) Specimen Type: BLOOD Comment: Test Performed by: [id number] Meter #: [id number] Ordering Provider: SILVIA REDDY Report Released Date/Time: Aug 15, 2024 04:59 PM Reporting Lab: [facility] #1 [place] [address] Performing Lab: [facility] [place] [address] GLUCOSE,BLOOD- poct (STL) 194 mg/dL H 72-Aug 15, 2024 11:39 AM [facility] GLUCOSE,BLOOD-poct (STL) Specimen Type: BLOOD Comment: Test Performed by: [id number] Meter #: [id number] Ordering Provider: SILVIA REDDY Report Released Date/Time: Aug 15, 2024 12:00 PM Reporting Lab: [facility] [place] [address] Performing Lab: [facility] [place] [address] GLUCOSE,BLOOD- poct (STL) 127 mg/dL H -Aug 15, 2024 05:07 AM [facility] GLUCOSE,BLOOD-poct (STL) Specimen Type: BLOOD Comment: Test Performed by: [id number] Meter #: [id number] Ordering Provider: SILVIA REDDY Report Released Date/Time: Aug 15, 2024 06:14 AM Reporting Lab: [facility] [place] [address] Performing Lab: [facility] [place] [address] GLUCOSE,BLOOD- poct (STL) 151 mg/dL H 72-Aug 14, 2024 04:22 PM [facility] GLUCOSE,BLOOD-poct (STL) Specimen Type: BLOOD Comment: Test Performed by: [id number] Meter #: [id number] Ordering Provider: SILVIA REDDY Report Released Date/Time: Aug 14, 2024 04:52 PM Reporting Lab: [facility] #[address] [facility] [id number] Performing Lab: [facility] #[address] [facility] [address] GLUCOSE,BLOOD- poct (STL) 129 mg/dL H 72-99 Aug 14, 2024 11:21 AM [facility] GLUCOSE,BLOOD-poct (STL) Specimen Type: BLOOD Comment: Test Performed by: [id number] Meter #: [id number] Ordering Provider: SILVIA REDDY Report Released Date/Time: Aug 14, 2024 11:37 AM Reporting Lab: [facility] #1 [facility] [address] Performing Lab: [facility]1 [facility] [address] GLUCOSE,BLOOD- poct (STL) 135 mg/dL H 72-99 Aug 14, 2024 06:59 AM [facility] QUANTIFERON-TB,4 TUBE Specimen Type: BLOOD Comment: normalcy [...] For additional information, please refer to http://[email or web address]/faq/RUE650 (This link is being provided for information/ educational purposes only.) Test Performed by [employer], [employer] [facility], [address] [place], [place] Tommie Garcia M.D., Ph.D., Director of Laboratories , [facility] [id number] Ordering Provider: SILVIA REDDY Report Released Date/Time: Aug 11, 2024 03:58 PM Reporting Lab: [facility] [address] [facility] [address] Performing Lab: [facility] [id number] [place] [address] .NIL - QUANTIFERON 0.04 [IU]/mL .MITOGEN-NIL 0.39 [IU]/mL .QUANTIFERON INDETERMINATE NEGATIVE .TB1-NIL <0.00 [IU]/mL .TB2-NIL <0.00 [IU]/mL Aug 14, 2024 06:59 AM [facility] MAGNESIUM Specimen Type: PLASMA Comment: No hemolysis noted. Ordering Provider: SILVIA REDDY Report Released Date/Time: Aug 11, 2024 03:58 PM Reporting Lab: [facility] #[address] [place] [phone] Performing Lab: [facility]1 [facility] [address] MAGNESIUM 1.9 mg/dL 1.6-2.6 Aug 14, 2024 06:59 AM [facility] B12 Specimen Type: SERUM No comment entered. Ordering Provider: SILVIA REDDY Report Released Date/Time: Aug 11, 2024 03:58 PM Reporting Lab: [facility]1 [facility] [address] Performing Lab: [facility]1 [facility] [address] B12 757 pg/mL 213-816 Aug 14, 2024 06:59 AM [facility] FOLATE (STL-MA) Specimen Type: SERUM No comment entered. Ordering Provider: SILVIA REDDY Report Released Date/Time: Aug 11, 2024 03:58 PM Reporting Lab: [facility]1 [facility] [address] Performing Lab: [facility]1 [facility] [address] FOLATE (STL-MA) 6.8 ng/mL L 7-20 Aug 14, 2024 06:59 AM [facility] VITAMIN D, 25-HYDROXY Specimen Type: SERUM No comment entered. Ordering Provider: SILVIA REDDY Report Released Date/Time: Aug 11, 2024 03:58 PM Reporting Lab: [facility]1 [facility] [address] Performing Lab: [facility]1 [facility] [address] VITAMIN D, 25-HYDROXY 8.9 ng/mL L 30-96 Aug 14, 2024 06:59 AM [facility] COMPREHENSIVE METABOLIC PANEL Specimen Type: PLASMA Comment: No hemolysis noted. Ordering Provider: SILVIA REDDY Report Released Date/Time: Aug 11, 2024 03:58 PM Reporting Lab: [facility]1 [facility] [address] Performing Lab: [facility]1 [place] [phone] CREATININE 0.75 mg/dL 0.70-1.30 UREA NITROGEN 13.6 [...] 95.88 >60 Aug 14, 2024 06:59 AM [facility] CBC Specimen Type: BLOOD No comment entered. Ordering Provider: SILVIA REDDY Report Released Date/Time: Aug 11, 2024 03:58 PM Reporting Lab: [facility]1 [facility] [address] Performing Lab: [facility]1 [facility] [address] WBC 4.1 10*3/uL 3.6-11.2 RBC 3.20 10*6/uL [...] 10*3/uL 0.00-0.20 Aug 14, 2024 05:08 AM [facility] GLUCOSE,BLOOD-poct (STL) Specimen Type: BLOOD Comment: Test Performed by: [id number] Meter #: [id number] Ordering Provider: SILVIA REDDY Report Released Date/Time: Aug 14, 2024 05:52 AM Reporting Lab: [facility]1 [facility] [address] Performing Lab: [facility]1 [facility] [address] GLUCOSE,BLOOD- poct (STL) 135 mg/dL H 72-99 Aug 13, 2024 04:27 PM [facility] GLUCOSE,BLOOD-poct (STL) Specimen Type: BLOOD Comment: Test Performed by: [id number] Meter #: [id number] Ordering Provider: SILVIA REDDY Report Released Date/Time: Aug 13, 2024 04:41 PM Reporting Lab: [facility] #1 [facility] [address] Performing Lab: [facility] [address] GLUCOSE,BLOOD- poct (STL) 181 mg/dL H -Aug 13, 2024 11:33 AM [facility] GLUCOSE,BLOOD-poct (STL) Specimen Type: BLOOD Comment: Test Performed by: [id number] Meter #: [id number] Ordering Provider: SILVIA REDDY Report Released Date/Time: Aug 13, 2024 03:55 PM Reporting Lab: [facility] #1 [facility] [address] Performing Lab: [facility] #1 [facility] [address] GLUCOSE,BLOOD- poct (STL) 140 mg/dL H Aug 13, 2024 05:54 AM [facility] GLUCOSE,BLOOD-poct (STL) Specimen Type: BLOOD Comment: Test Performed by: [id number] Meter #: [id number] Ordering Provider: SILVIA REDDY Report Released Date/Time: Aug 13, 2024 06:20 AM Reporting Lab: [facility] #1 [facility] [address] Performing Lab: [facility] #1 [facility] [address] GLUCOSE,BLOOD- poct (STL) 112 mg/dL H -Aug 12, 2024 04:35 PM [facility] GLUCOSE,BLOOD-poct (STL) Specimen Type: BLOOD Comment: Test Performed by: [id number] Meter #: [id number] Ordering Provider: SILVIA REDDY Report Released Date/Time: Aug 12, 2024 04:47 PM Reporting Lab: [facility] #1 [place] [phone] Performing Lab: [facility] #1 [place] [address] GLUCOSE,BLOOD- poct (STL) 128 mg/dL H 72-99 Aug 12, 2024 11:26 AM [facility] GLUCOSE,BLOOD-poct (STL) Specimen Type: BLOOD Comment: Test Performed by: [id number] Meter #: [id number] Ordering Provider: SILVIA REDDY Report Released Date/Time: Aug 12, 2024 11:45 AM Reporting Lab: [facility]1 [place] [address] Performing Lab: [facility] #1 [place] [address] GLUCOSE,BLOOD- poct (STL) 188 mg/dL H 72-99 Aug 12, 2024 06:13 AM [facility] GLUCOSE,BLOOD-poct (STL) Specimen Type: BLOOD Comment: Test Performed by: [id number] Meter #: [id number] Ordering Provider: SILVIA REDDY Report Released Date/Time: Aug 12, 2024 06:25 AM Reporting Lab: [facility] #1 [place] [address] Performing Lab: [facility] #1 [place] [address] GLUCOSE,BLOOD- poct (STL) 116 mg/dL H 72-99 Aug 11, 2024 04:10 PM [facility] GLUCOSE,BLOOD-poct (STL) Specimen Type: BLOOD Comment: Test Performed by: [id number] Meter #: [id number] Ordering Provider: SILVIA REDDY Report Released Date/Time: Aug 11, 2024 04:27 PM Reporting Lab: [facility] #1 [place] [address] Performing Lab: [facility]1 [facility] [address] GLUCOSE,BLOOD- poct (STL) 184 mg/dL H 72-99 Aug 11, 2024 01:44 PM [facility] MRSA SURVL NARES DNA [...] Aug 11, 2024 02:03 PM Reporting Lab: [address] [address] Performing Lab: [address] [address] MRSA SURVL NARES DNA Negative Negative Jul 20, 2024 11:18 AM [facility] APTT Specimen Type: PLASMA No comment entered. Ordering Provider: MANUEL BAIRD Report Released Date/Time: Jul 19, 2024 04:00 PM Reporting Lab: [address] [address] Performing Lab: [address] [address] APTT 32.1 s 26.7-39.9 Jul 20, 2024 11:18 AM [facility] PT/INR NEW (STL-MA) Specimen Type: PLASMA No comment entered. Ordering Provider: MANUEL BAIRD Report Released Date/Time: Jul 19, 2024 04:00 PM Reporting Lab: [address] [address] Performing Lab: [address] [address] PROTIME 14.4 s H 9.4-12.5 INR VALUE 1.3 {INR} Jul 20, 2024 11:18 AM [facility] CBC Specimen Type: BLOOD No comment entered. Ordering Provider: MANUEL BAIRD Report Released Date/Time: Jul 19, 2024 04:00 PM Reporting Lab: [facility] [address] [facility] [address] Performing Lab: [facility] [address] [place] [phone] WBC 4.7 10*3/uL 3.6-11.2 RBC 4.86 10*6/uL [...] 1.6 1.0-7.0 Jul 17, 2024 08:02 AM [facility] BASIC METABOLIC PANEL Specimen Type: PLASMA Comment: No hemolysis noted. Ordering Provider: MARY SERNA Report Released Date/Time: Jun 07, 2024 01:43 PM Reporting Lab: [facility] [address] [facility] [address] Performing Lab: [facility] [address] [place] [phone] CREATININE 0.85 mg/dL 0.7-1.3 UREA NITROGEN 15.2 mg/dL 9.0-25.0 GLUCOSE 120 mg/dL H 72-99 SODIUM 141 meq/L 136-145 POTASSIUM 4.4 meq/L 3.5-5 CHLORIDE 107 meq/L 98-107 CARBON DIOXIDE 26 meq/L 22-31 CALCIUM 9.2 mg/dL 8.4-10.4 EGFR (CKD-EPI 2020) 92.3 >60 Social History: Smoking Status (Most current) and [...] 10:34 AM QUIT TOBACCO >7 YEARS AGO [facility] Tobacco Use History This section includes a history of the smoking, or tobacco-related health factors, that were collected on or before the date of the Encounter. The data comes from the [place] facility where the Encounter took place. Date/Time Smoking Status/Tobacco Use Comment F acility Sep 30, 2015 10:12 AM QUIT TOBACCO >7 YEARS AGO [facility] Oct 29, 2014 10:23 AM QUIT TOBACCO >7 YEARS AGO [facility] Dec 27, 2013 01:27 PM QUIT TOBACCO >7 YEARS AGO [facility] Feb 24, 2013 02:01 PM LIFETIME NON-USER OF TOBACCO [facility] Feb 11, 2009 10:09 AM QUIT TOBACCO >7 YEARS AGO [facility] Oct 06, 2006 09:30 AM CURRENT NON-TOBACC O USER-HX OF USE [facility] Oct 06, 2006 09:30 AM TOBACCO TERMINATION STAGE [facility] Advance Directives: All historical [...] Source Jan 19, 2017 ADVANCE DIRECTIVE DISCUSSION BARDALES,ERICK A [facility] Encounter Notes: All associated encounter notes This section contains the clinical notes associated to the Encounter. Date/Time Encounter Note(s) Provider Source Aug 02, 2024 11:51 AM PHYSICIAN LETTERS: LOCAL TITLE: NO SHOW LETTER STL STANDARD TITLE: PHYSICIAN LETTERS DATE OF NOTE: AUG 02, 2024@11:51 ENTRY DATE: AUG 02, 2024@11:51:18 AUTHOR: TATI MCDONNELL EXP COSIGNER: URGENCY: STATUS: COMPLETED [facility] [address] [place] [address] AUG 02, 2024 ABIEL FINK [address] [place], [place] [address] Dear Abiel Fink, Thank you for choosing the [facility] as your primary choice for health care. As a partner in your health care, we are attempting to contact you because our records indicate that you did not make it to your scheduled appointment, and we would like to re-schedule. Please call us at [phone], extension [phone] to speak to us regarding making an appointment in the HEMATOLOGY/ONCOLOGY clinic. Your good health is important to [...] the clinic to inquire about scheduling. Sincerely, ABIEL RODRIGUEZ REBECCA L [facility]
--- OUTSIDE RECORDS SUMMARY | 2024-11-17 03:58 | XMS_ITS | Encounter Summary ---
Author Name [facility] [place] Organization [facility] [place] Address [address] [place] [address] Care Team Providers Care Pipe Finisher Name Role Phone MANUEL BAIRD Primary Care [...] PART A Apr 08, 2017 PART A [id number] ASHLEY WALKER PATIENT Selected Encounter This section includes the information on record at [place] for the Encounter. Date/Time Encounter Type Encounter Description Reason Pro vider Source Aug 02, 2024 11:56 AM Outpatient Encounter ADMIN PAT ACTIVTIES (MASNONCT) IHE Encounter Template Text not used by [place] Plan of Treatment: Future Appointments (+ 6 [...] 20 appointments. The data comes from all [facility]. Appointment Date/Time Appointment Type Appointme nt Facility Name Aug 24, 2024 10:00 AM AMBULATORY - MEDICINE [facility] Aug 24, 2024 10:30 AM AMBULATORY - MEDICINE [facility] Aug 30, 2024 09:30 AM AMBULATORY - MEDICINE [facility] Aug 31, 2024 01:00 PM AMBULATORY - SURGERY [facility] Sep 21, 2024 01:30 PM AMBULATORY - MEDICINE [facility] Sep 22, 2024 11:00 AM AMBULATORY - MEDICINE [facility] Sep 29, 2024 12:30 PM AMBULATORY - MEDICINE [facility] Oct 02, 2024 09:30 AM AMBULATORY - MEDICINE [facility] Nov 20, 2024 10:30 AM AMBULATORY - SURGERY [facility] Nov 21, 2024 10:00 AM AMBULATORY - NONE [facility] Dec 11, 2024 10:30 AM AMBULATORY - MEDICINE [facility] Active, Pending, and Scheduled Orders This section includes a listing of several types of active, pending, and scheduled orders, including clinic medications orders, diagnostic test orders, procedure orders and consult orders; where the start date of the order is 45 days before the date of the Encounter or 45 days after the date of theEncounter. The data comes from all [facility]. Test Date/Time Test Type Test Details Facility Name Aug 02, 2024 12:00 AM Laboratory - Chemistry Order CBC BLOOD STAT SP [facility] Aug 02, 2024 12:00 AM Laboratory - Chemistry Order COMPREHENSIVE METABOLIC PANEL GREEN LI/HEP BLD/PLAS PLASMA SP [facility] Aug 17, 2024 03:47 PM Consult Order [facility] Cons Bedside [facility] Lab Results: +/- 30 days [...] Range Comment Aug 23, 2024 08:21 AM [facility] MAGNESIUM Specimen Type: PLASMA No comment entered. Ordering Provider: SILVIA REDDY Report Released Date/Time: Aug 22, 2024 11:26 AM Reporting Lab: [facility] [address] Performing Lab: [facility] [address] MAGNESIUM 1.8 mg/dL 1.6-2.6 Aug 23, 2024 08:[address] [facility] CBC Specimen Type: BLOOD No comment entered. Ordering Provider: SILVIA REDDY Report Released Date/Time: Aug 22, 2024 11:19 AM Reporting Lab: [facility] [address] Performing Lab: [facility] [address] WBC 4.0 10*3/uL 3.6-11.2 RBC 3.65 10*6/uL [...] 10*3/uL 0.00-0.20 Aug 23, 2024 05:12 AM [facility] GLUCOSE,BLOOD-poct (STL) Specimen Type: BLOOD Comment: Test Performed by: [id number] Meter #: [id number] Ordering Provider: SILVIA REDDY Report Released Date/Time: Aug 23, 2024 05:23 AM Reporting Lab: [facility] [address] Performing Lab: [facility] [address] GLUCOSE,BLOOD- poct (STL) 99 mg/dL 72-99 Aug 23, 2024 02:45 AM [facility] OCCULT BLOOD FIT X1 SCREEN Specimen Type: FECES No comment entered. Ordering Provider: SILVIA REDDY Report Released Date/Time: Aug 22, 2024 11:23 AM Reporting Lab: [place] [id number] [facility] [address] Performing Lab: [place] [address] [facility] [address] OCCULT BLOOD (FIT) #1 OF 1 Negative Negative Aug 22, 2024 07:30 PM [facility] OCCULT BLOOD FIT X1 SCREEN Specimen Type: FECES No comment entered. Ordering Provider: SILVIA REDDY Report Released Date/Time: Aug 22, 2024 11:23 AM Reporting Lab: [facility] [address] [facility] [address] Performing Lab: [facility] [address] [facility] [address] OCCULT BLOOD (FIT) #1 OF 1 Negative Negative Aug 22, 2024 06:15 PM [facility] OCCULT BLOOD FIT X1 SCREEN Specimen Type: FECES No comment entered. Ordering Provider: SILVIA REDDY Report Released Date/Time: Aug 22, 2024 11:23 AM Reporting Lab: [place] [address] [facility] [address] Performing Lab: [facility] [address] [facility] [address] OCCULT BLOOD (FIT) #1 OF 1 Negative Negative Aug 22, 2024 04:24 PM [facility] GLUCOSE,BLOOD-poct (STL) Specimen Type: BLOOD Comment: Test Performed by: [id number] Meter #: [id number] Ordering Provider: SILVIA REDDY Report Released Date/Time: Aug 22, 2024 04:36 PM Reporting Lab: [facility] [address] Performing Lab: [facility] [address] GLUCOSE,BLOOD- poct (STL) 176 mg/dL H -Aug 22, 2024 04:23 PM [facility] GLUCOSE,BLOOD-poct (STL) Specimen Type: BLOOD Comment: Test Performed by: [id number] Meter #: [id number] Ordering Provider: SILVIA REDDY Report Released Date/Time: Aug 22, 2024 04:36 PM Reporting Lab: [facility] [address] Performing Lab: [facility] [address] GLUCOSE,BLOOD- poct (STL) 221 mg/dL H -Aug 22, 2024 11:15 AM [facility] GLUCOSE,BLOOD-poct (STL) Specimen Type: BLOOD Comment: Test Performed by: [id number] Meter #: [id number] Ordering Provider: SILVIA REDDY Report Released Date/Time: Aug 22, 2024 11:27 AM Reporting Lab: [facility] [address] Performing Lab: [facility] [address] GLUCOSE,BLOOD- poct (STL) 140 mg/dL H 72-Aug 22, 2024 08:[address] [facility] FERRITIN Specimen Type: SERUM No comment entered. Ordering Provider: JUDIT PERKINS Report Released Date/Time: Aug 18, 2024 11:01 AM Reporting Lab: [facility] [address] [facility] [address] Performing Lab: [facility] [address] [facility] [address] FERRITIN 79.50 ng/mL 22-275 Aug 22, 2024 08:03 AM [facility] IRON/TIBC PROFILE Specimen Type: SERUM No comment entered. Ordering Provider: JUDIT PERKINS Report Released Date/Time: Aug 18, 2024 11:01 AM Reporting Lab: [facility] [address] [facility] [address] Performing Lab: [address] [address] TIBC 283 ug/dL 250-450 TRANSFERRIN 226 mg/dL 163-344 IRON SATURATION 7 L 20-50 IRON 19 ug/dL L 65-175 Aug 22, 2024 08:[address] [facility] B12 Specimen Type: SERUM No comment entered. Ordering Provider: JUDIT PERKINS Report Released Date/Time: Aug 18, 2024 11:01 AM Reporting Lab: [facility] [address] Performing Lab: [facility] [address] B12 631 pg/mL 213-816 Aug 22, 2024 08:03 AM [facility] COMPREHENSIVE METABOLIC PANEL Specimen Type: PLASMA Comment: No hemolysis noted. Ordering Provider: SILVIA REDDY Report Released Date/Time: Aug 17, 2024 01:18 PM Reporting Lab: [facility] [address] [facility] [address] Performing Lab: [address] [address] CREATININE 0.80 mg/dL 0.7-1.3 UREA NITROGEN 9.7 [...] 94.0 >60 Aug 22, 2024 08:[address] [facility] CBC Specimen Type: BLOOD No comment entered. Ordering Provider: SILVIA REDDY Report Released Date/Time: Aug 17, 2024 01:18 PM Reporting Lab: [facility] [address] Performing Lab: [facility] [address] WBC 3.5 10*3/uL L 3.6-11.2 RBC 3.23 [...] NRBC% 0 Aug 22, 2024 05:03 AM [facility] GLUCOSE,BLOOD-poct (STL) Specimen Type: BLOOD Comment: Test Performed by: [id number] Meter #: [id number] Ordering Provider: SILVIA REDDY Report Released Date/Time: Aug 22, 2024 06:17 AM Reporting Lab: [facility] [address] Performing Lab: [facility] [address] GLUCOSE,BLOOD- poct (STL) 170 mg/dL H -Aug 21, 2024 04:32 PM [facility] GLUCOSE,BLOOD-poct (STL) Specimen Type: BLOOD Comment: Test Performed by: [id number] Meter #: [id number] Ordering Provider: SILVIA REDDY Report Released Date/Time: Aug 21, 2024 04:49 PM Reporting Lab: [facility] [address] Performing Lab: [facility] [address] GLUCOSE,BLOOD- poct (STL) 169 mg/dL H 72-Aug 21, 2024 11:53 AM [facility] GLUCOSE,BLOOD-poct (STL) Specimen Type: BLOOD Comment: Test Performed by: [id number] Meter #: [id number] Ordering Provider: SILVIA REDDY Report Released Date/Time: Aug 21, 2024 12:11 PM Reporting Lab: [facility] [address] Performing Lab: [facility] [address] GLUCOSE,BLOOD- poct (STL) 149 mg/dL H 72-99 Aug 21, 2024 05:10 AM [facility] GLUCOSE,BLOOD-poct (STL) Specimen Type: BLOOD Comment: Test Performed by: [id number] Meter #: [id number] Ordering Provider: SILVIA REDDY Report Released Date/Time: Aug 21, 2024 05:27 AM Reporting Lab: [facility] [address] [place] [address] Performing Lab: [facility] [address] [place] [address] GLUCOSE,BLOOD- poct (STL) 118 mg/dL H 72-99 Aug 20, 2024 04:38 PM [facility] GLUCOSE,BLOOD-poct (STL) Specimen Type: BLOOD Comment: Test Performed by: [id number] Meter #: [id number] Ordering Provider: SILVIA REDDY Report Released Date/Time: Aug 21, 2024 01:55 AM Reporting Lab: [facility] [place] [address] Performing Lab: [facility] [address] [place] [address] GLUCOSE,BLOOD- poct (STL) 169 mg/dL H 72-Aug 20, 2024 04:36 PM [facility] GLUCOSE,BLOOD-poct (STL) Specimen Type: BLOOD Comment: Test Performed by: [id number] Meter #: [id number] Ordering Provider: SILVIA REDDY Report Released Date/Time: Aug 21, 2024 01:55 AM Reporting Lab: [facility] [address] [place] [address] Performing Lab: [facility] [place] [address] GLUCOSE,BLOOD- poct (STL) 395 mg/dL H 72-99 Aug 20, 2024 11:45 AM [facility] GLUCOSE,BLOOD-poct (STL) Specimen Type: BLOOD Comment: Test Performed by: [id number] Meter #: [id number] Ordering Provider: SILVIA REDDY Report Released Date/Time: Aug 20, 2024 11:56 AM Reporting Lab: [facility] [address] Performing Lab: [facility] [address] GLUCOSE,BLOOD- poct (STL) 169 mg/dL H 72-Aug 20, 2024 05:06 AM [facility] GLUCOSE,BLOOD-poct (STL) Specimen Type: BLOOD Comment: Test Performed by: [id number] Meter #: [id number] Ordering Provider: SILVIA REDDY Report Released Date/Time: Aug 20, 2024 06:05 AM Reporting Lab: [facility] [address] Performing Lab: [facility] [address] GLUCOSE,BLOOD- poct (STL) 115 mg/dL H -Aug 19, 2024 04:23 PM [facility] GLUCOSE,BLOOD-poct (STL) Specimen Type: BLOOD Comment: Test Performed by: [id number] Meter #: [id number] Ordering Provider: SILVIA REDDY Report Released Date/Time: Aug 19, 2024 05:54 PM Reporting Lab: [facility] [address] Performing Lab: [facility] [address] GLUCOSE,BLOOD- poct (STL) 137 mg/dL H -Aug 19, 2024 11:28 AM [facility] GLUCOSE,BLOOD-poct (STL) Specimen Type: BLOOD Comment: Test Performed by: [id number] Meter #: [id number] Ordering Provider: SILVIA REDDY Report Released Date/Time: Aug 19, 2024 11:51 AM Reporting Lab: [facility] [address] Performing Lab: [facility] [address] GLUCOSE,BLOOD- poct (STL) 190 mg/dL H Aug 19, 2024 05:21 AM [facility] GLUCOSE,BLOOD-poct (STL) Specimen Type: BLOOD Comment: Test Performed by: [id number] Meter #: [id number] Ordering Provider: SILVIA REDDY Report Released Date/Time: Aug 19, 2024 05:56 AM Reporting Lab: [facility] [address] Performing Lab: [facility] [address] GLUCOSE,BLOOD- poct (STL) 130 mg/dL H Aug 18, 2024 04:49 PM [facility] GLUCOSE,BLOOD-poct (STL) Specimen Type: BLOOD Comment: Test Performed by: [id number] Meter #: [id number] Ordering Provider: SILVIA REDDY Report Released Date/Time: Aug 18, 2024 05:01 PM Reporting Lab: [facility] [address] Performing Lab: [facility] [address] GLUCOSE,BLOOD- poct (STL) 129 mg/dL H Aug 18, 2024 11:23 AM [facility] GLUCOSE,BLOOD-poct (STL) Specimen Type: BLOOD Comment: Test Performed by: [id number] Meter #: [id number] Ordering Provider: SILVIA REDDY Report Released Date/Time: Aug 18, 2024 11:41 AM Reporting Lab: [facility] [address] Performing Lab: [facility] [address] GLUCOSE,BLOOD- poct (STL) 180 mg/dL H Aug 18, 2024 05:08 AM [facility] GLUCOSE,BLOOD-poct (STL) Specimen Type: BLOOD Comment: Test Performed by: [id number] Meter #: [id number] Ordering Provider: SILVIA REDDY Report Released Date/Time: Aug 18, 2024 05:31 AM Reporting Lab: [facility] [place] [phone] Performing Lab: [facility] [address] GLUCOSE,BLOOD- poct (STL) 127 mg/dL H -Aug 17, 2024 07:32 PM [facility] GLUCOSE,BLOOD-poct (STL) Specimen Type: BLOOD Comment: Test Performed by: [id number] Meter #: [id number] Ordering Provider: SILVIA REDDY Report Released Date/Time: Aug 17, 2024 07:59 PM Reporting Lab: [facility] [place] [address] Performing Lab: [facility] [place] [address] GLUCOSE,BLOOD- poct (STL) 154 mg/dL H -Aug 17, 2024 04:24 PM [facility] GLUCOSE,BLOOD-poct (STL) Specimen Type: BLOOD Comment: Test Performed by: [id number] Meter #: [id number] Ordering Provider: SILVIA REDDY Report Released Date/Time: Aug 17, 2024 04:35 PM Reporting Lab: [facility] [place] [address] Performing Lab: [facility] [place] [address] GLUCOSE,BLOOD- poct (STL) 178 mg/dL H -Aug 17, 2024 05:09 AM [facility] GLUCOSE,BLOOD-poct (STL) Specimen Type: BLOOD Comment: Test Performed by: [id number] Meter #: [id number] Ordering Provider: SILVIA REDDY Report Released Date/Time: Aug 17, 2024 05:54 AM Reporting Lab: [facility] [address] Performing Lab: [facility] [address] GLUCOSE,BLOOD- poct (STL) 124 mg/dL H 72-Aug 16, 2024 07:40 PM [facility] GLUCOSE,BLOOD-poct (STL) Specimen Type: BLOOD Comment: Test Performed by: [id number] Meter #: [id number] Ordering Provider: SILVIA REDDY Report Released Date/Time: Aug 16, 2024 08:28 PM Reporting Lab: [facility] [address] Performing Lab: [facility] [address] GLUCOSE,BLOOD- poct (STL) 144 mg/dL H -Aug 16, 2024 04:19 PM [facility] GLUCOSE,BLOOD-poct (STL) Specimen Type: BLOOD Comment: Test Performed by: [id number] Meter #: [id number] Ordering Provider: SILVIA REDDY Report Released Date/Time: Aug 16, 2024 04:45 PM Reporting Lab: [facility] [address] Performing Lab: [facility] [address] GLUCOSE,BLOOD- poct (STL) 138 mg/dL H Aug 16, 2024 11:52 AM [facility] GLUCOSE,BLOOD-poct (STL) Specimen Type: BLOOD Comment: Test Performed by: [id number] Meter #: [id number] Ordering Provider: SILVIA REDDY Report Released Date/Time: Aug 16, 2024 12:04 PM Reporting Lab: [facility] [address] Performing Lab: [facility] [address] GLUCOSE,BLOOD- poct (STL) 135 mg/dL H Aug 16, 2024 05:24 AM [facility] GLUCOSE,BLOOD-poct (STL) Specimen Type: BLOOD Comment: Test Performed by: [id number] Meter #: [id number] Ordering Provider: SILVIA REDDY Report Released Date/Time: Aug 16, 2024 05:38 AM Reporting Lab: [facility] [address] Performing Lab: [facility] [address] GLUCOSE,BLOOD- poct (STL) 151 mg/dL H Aug 15, 2024 07:31 PM [facility] GLUCOSE,BLOOD-poct (STL) Specimen Type: BLOOD Comment: Test Performed by: [id number] Meter #: [id number] Ordering Provider: SILVIA REDDY Report Released Date/Time: Aug 15, 2024 08:07 PM Reporting Lab: [facility] [address] Performing Lab: [facility] [address] GLUCOSE,BLOOD- poct (STL) 173 mg/dL H Aug 15, 2024 04:18 PM [facility] GLUCOSE,BLOOD-poct (STL) Specimen Type: BLOOD Comment: Test Performed by: [id number] Meter #: [id number] Ordering Provider: SILVIA REDDY Report Released Date/Time: Aug 15, 2024 04:59 PM Reporting Lab: [facility] [address] Performing Lab: [facility] [address] GLUCOSE,BLOOD- poct (STL) 136 mg/dL H Aug 15, 2024 04:16 PM [facility] GLUCOSE,BLOOD-poct (STL) Specimen Type: BLOOD Comment: Test Performed by: [id number] Meter #: [id number] Ordering Provider: SILVIA REDDY Report Released Date/Time: Aug 15, 2024 04:59 PM Reporting Lab: [facility] [place] [address] Performing Lab: [facility] [place] [address] GLUCOSE,BLOOD- poct (STL) 194 mg/dL H 72-Aug 15, 2024 11:39 AM [facility] GLUCOSE,BLOOD-poct (STL) Specimen Type: BLOOD Comment: Test Performed by: [id number] Meter #: [id number] Ordering Provider: SILVIA REDDY Report Released Date/Time: Aug 15, 2024 12:00 PM Reporting Lab: [facility] [place] [address] Performing Lab: [facility] [place] [address] GLUCOSE,BLOOD- poct (STL) 127 mg/dL H -Aug 15, 2024 05:07 AM [facility] GLUCOSE,BLOOD-poct (STL) Specimen Type: BLOOD Comment: Test Performed by: [id number] Meter #: [id number] Ordering Provider: SILVIA REDDY Report Released Date/Time: Aug 15, 2024 06:14 AM Reporting Lab: [facility] [place] [address] Performing Lab: [facility] [place] [address] GLUCOSE,BLOOD- poct (STL) 151 mg/dL H 72-Aug 14, 2024 04:22 PM [facility] GLUCOSE,BLOOD-poct (STL) Specimen Type: BLOOD Comment: Test Performed by: [id number] Meter #: [id number] Ordering Provider: SILVIA REDDY Report Released Date/Time: Aug 14, 2024 04:52 PM Reporting Lab: [facility] [address] Performing Lab: [facility] [address] GLUCOSE,BLOOD- poct (STL) 129 mg/dL H 72-99 Aug 14, 2024 11:21 AM [facility] GLUCOSE,BLOOD-poct (STL) Specimen Type: BLOOD Comment: Test Performed by: [id number] Meter #: [id number] Ordering Provider: SILVIA REDDY Report Released Date/Time: Aug 14, 2024 11:37 AM Reporting Lab: [facility] [address] Performing Lab: [facility] [address] GLUCOSE,BLOOD- poct (STL) 135 mg/dL H 72-99 Aug 14, 2024 06:59 AM [facility] QUANTIFERON-TB,4 TUBE Specimen Type: BLOOD Comment: normalcy [...] For additional information, please refer to [email or web address] Nativo/[email or web address] (This link is being provided for information/ educational purposes only.) Test Performed by [employer], [facility], [address] [place], [place] Tommie Garcia M.D., Ph.D., Director of Laboratories , [facility] [id number] Ordering Provider: SILVIA REDDY Report Released Date/Time: Aug 11, 2024 03:58 PM Reporting Lab: [facility] [address] [facility] [address] Performing Lab: [facility] [id number] [place] [address] .NIL - QUANTIFERON 0.04 [IU]/mL .MITOGEN-NIL 0.39 [IU]/mL .QUANTIFERON INDETERMINATE NEGATIVE .TB1-NIL <0.00 [IU]/mL .TB2-NIL <0.00 [IU]/mL Aug 14, 2024 06:[address] [facility] B12 Specimen Type: SERUM No comment entered. Ordering Provider: SILVIA REDDY Report Released Date/Time: Aug 11, 2024 03:58 PM Reporting Lab: [facility] [place] [phone] Performing Lab: [facility] [place] [phone] B12 757 pg/mL 213-816 Aug 14, 2024 06:[address] [facility] MAGNESIUM Specimen Type: PLASMA Comment: No hemolysis noted. Ordering Provider: SILVIA REDDY Report Released Date/Time: Aug 11, 2024 03:58 PM Reporting Lab: [facility] [place] [phone] Performing Lab: [facility] [place] [phone] MAGNESIUM 1.9 mg/dL 1.6-2.6 Aug 14, 2024 06:[address] [facility] FOLATE (ST[facility]-MA) Specimen Type: SERUM No comment entered. Ordering Provider: SILVIA REDDY Report Released Date/Time: Aug 11, 2024 03:58 PM Reporting Lab: [facility] [place] [phone] Performing Lab: [facility] [id number] FOLATE ([facility]-MA) 6.8 ng/mL L 7-20 Aug 14, 2024 06:59 AM [facility] VITAMIN D, 25-HYDROXY Specimen Type: SERUM No comment entered. Ordering Provider: SILVIA REDDY Report Released Date/Time: Aug 11, 2024 03:58 PM Reporting Lab: [facility] [phone] Performing Lab: [facility] [phone] VITAMIN D, 25-HYDROXY 8.9 ng/mL L 30-96 Aug 14, 2024 06:59 AM [facility] CBC Specimen Type: BLOOD No comment entered. Ordering Provider: SILVIA REDDY Report Released Date/Time: Aug 11, 2024 03:58 PM Reporting Lab: [facility] [phone] Performing Lab: [facility] [place] [phone] WBC 4.1 10*3/uL 3.6-11.2 RBC 3.20 10*6/uL [...] ABSOLUTE 0.07 10*3/uL 0.00-0.20 Aug 14, 2024 06:59 AM [facility] COMPREHENSIVE METABOLIC PANEL Specimen Type: PLASMA Comment: No hemolysis noted. Ordering Provider: SILVIA REDDY Report Released Date/Time: Aug 11, 2024 03:58 PM Reporting Lab: [facility] [place] [id number] Performing Lab: [facility] [place] [address] CREATININE 0.75 mg/dL 0.70-1.30 UREA NITROGEN 13.6 [...] (CKD-EPI 2020) 95.88 >60 Aug 14, 2024 05:08 AM [facility] GLUCOSE,BLOOD-poct (STL) Specimen Type: BLOOD Comment: Test Performed by: [id number] Meter #: [id number] Ordering Provider: SILVIA REDDY Report Released Date/Time: Aug 14, 2024 05:52 AM Reporting Lab: [facility] [address] Performing Lab: [facility] [address] GLUCOSE,BLOOD- poct (STL) 135 mg/dL H 72-99 Aug 13, 2024 04:27 PM [facility] GLUCOSE,BLOOD-poct (STL) Specimen Type: BLOOD Comment: Test Performed by: [id number] Meter #: [id number] Ordering Provider: SILVIA REDDY Report Released Date/Time: Aug 13, 2024 04:41 PM Reporting Lab: [facility] [address] Performing Lab: [facility] [address] GLUCOSE,BLOOD- poct (STL) 181 mg/dL H -Aug 13, 2024 11:33 AM [facility] GLUCOSE,BLOOD-poct (STL) Specimen Type: BLOOD Comment: Test Performed by: [id number] Meter #: [id number] Ordering Provider: SILVIA REDDY Report Released Date/Time: Aug 13, 2024 03:55 PM Reporting Lab: [facility] [address] Performing Lab: [facility] [address] GLUCOSE,BLOOD- poct (STL) 140 mg/dL H Aug 13, 2024 05:54 AM [facility] GLUCOSE,BLOOD-poct (STL) Specimen Type: BLOOD Comment: Test Performed by: [id number] Meter #: [id number] Ordering Provider: SILVIA REDDY Report Released Date/Time: Aug 13, 2024 06:20 AM Reporting Lab: [facility] [address] Performing Lab: [facility] [address] GLUCOSE,BLOOD- poct (STL) 112 mg/dL H -Aug 12, 2024 04:35 PM [facility] GLUCOSE,BLOOD-poct (STL) Specimen Type: BLOOD Comment: Test Performed by: [id number] Meter #: [id number] Ordering Provider: SILVIA REDDY Report Released Date/Time: Aug 12, 2024 04:47 PM Reporting Lab: [facility] [place] [phone] Performing Lab: [facility] [place] [address] GLUCOSE,BLOOD- poct (STL) 128 mg/dL H 72-99 Aug 12, 2024 11:26 AM [facility] GLUCOSE,BLOOD-poct (STL) Specimen Type: BLOOD Comment: Test Performed by: [id number] Meter #: [id number] Ordering Provider: SILVIA REDDY Report Released Date/Time: Aug 12, 2024 11:45 AM Reporting Lab: [facility] [place] [address] Performing Lab: [facility] [place] [address] GLUCOSE,BLOOD- poct (STL) 188 mg/dL H 72-99 Aug 12, 2024 06:13 AM [facility] GLUCOSE,BLOOD-poct (STL) Specimen Type: BLOOD Comment: Test Performed by: [id number] Meter #: [id number] Ordering Provider: SILVIA REDDY Report Released Date/Time: Aug 12, 2024 06:25 AM Reporting Lab: [facility] [place] [address] Performing Lab: [facility] [place] [address] GLUCOSE,BLOOD- poct (STL) 116 mg/dL H 72-99 Aug 11, 2024 04:10 PM [facility] GLUCOSE,BLOOD-poct (STL) Specimen Type: BLOOD Comment: Test Performed by: [id number] Meter #: [id number] Ordering Provider: SILVIA REDDY Report Released Date/Time: Aug 11, 2024 04:27 PM Reporting Lab: [facility] [place] [address] Performing Lab: [facility] [address] GLUCOSE,BLOOD- poct (STL) 184 mg/dL H 72-99 Aug 11, 2024 01:[address] [facility] MRSA SURVL NARES DNA [...] Aug 11, 2024 02:03 PM Reporting Lab: [address] [address] Performing Lab: [address] [address] MRSA SURVL NARES DNA Negative Negative Jul 20, 2024 11:18 AM [facility] APTT Specimen Type: PLASMA No comment entered. Ordering Provider: MANUEL BAIRD Report Released Date/Time: Jul 19, 2024 04:00 PM Reporting Lab: [address] [address] Performing Lab: [address] [address] APTT 32.1 s 26.7-39.9 Jul 20, 2024 11:18 AM [facility] PT/INR NEW (STL-MA) Specimen Type: PLASMA No comment entered. Ordering Provider: MANUEL BAIRD Report Released Date/Time: Jul 19, 2024 04:00 PM Reporting Lab: [address] [address] Performing Lab: [address] [address] PROTIME 14.4 s H 9.4-12.5 INR VALUE 1.3 {INR} Jul 20, 2024 11:18 AM [facility] CBC Specimen Type: BLOOD No comment entered. Ordering Provider: MANUEL BAIRD Report Released Date/Time: Jul 19, 2024 04:00 PM Reporting Lab: [facility] [address] [facility] [address] Performing Lab: [facility] [address] [place] [phone] WBC 4.7 10*3/uL 3.6-11.2 RBC 4.86 10*6/uL [...] 1.6 1.0-7.0 Jul 17, 2024 08:02 AM [facility] BASIC METABOLIC PANEL Specimen Type: PLASMA Comment: No hemolysis noted. Ordering Provider: MARY SERNA Report Released Date/Time: Jun 07, 2024 01:43 PM Reporting Lab: [facility] [address] [facility] [address] Performing Lab: [facility] [address] [place] [phone] CREATININE 0.85 mg/dL 0.7-1.3 UREA NITROGEN 15.2 [...] >7 YEARS AGO [facility] Tobacco Use History This section [...] 19, 2017 ADVANCE DIRECTIVE DISCUSSION BARDALES,ERICK A [facility] Encounter Notes: All associated encounter notes This section contains the clinical notes associated to the Encounter. Date/Time Encounter Note(s) Provider Source Aug 02, 2024 11:56 AM ADMINISTRATIVE NOT E: LOCAL TITLE: SCHEDULING NOTE STL STANDARD TITLE: ADMINISTRATIVE NOTE DATE OF NOTE: AUG 02, 2024@11:56 ENTRY DATE: AUG 02, 2024@11:56:19 AUTHOR: TATI MCDONNELL EXP COSIGNER: URGENCY: STATUS: COMPLETED Minimum Scheduling attempts to contact the [facility] have been made. RTC/Appt/Consult request will be discontinued after 14 days. Clinic: HEMATOLOGY/ONCOLOGY TAMARA: Jul First Call to [facility] - unsuccessful scheduling: Jul Unable to contact , letter sent: Jul Discontinue date (14 calendar days after letter is mailed): Aug ADDITIONAL RESULTS FROM SCHEDULING ATTEMPTS: /shen/ TATI GUTIERREZ Signed: 08/02/2024 11:57 Receipt Acknowledged By: 08/02/2024 14:58 /shen/ KALIA AGUILAN,RN REGISTERED NURSE TATI MCDONNELL [facility]
--- OUTSIDE RECORDS SUMMARY | 2024-11-17 03:58 | XMS_ITS | Encounter Summary ---
Author Name [facility] [place] Organization [facility] [place] Address [address] [place] [address] Care Team Providers Care Switchman Supervisor Name Role Phone MANUEL BAIRD Primary [...] PART A Apr 08, 2017 PART A [id number] ASHLEY WALKER PATIENT Selected Encounter This section includes the information on record at [place] for the Encounter. Date/Time Encounter Type Encounter Description Reason Provider Source Jul 19, 2024 02:33 PM Outpatient Encounter TELEPHONE PRIMARY C[facility] Encounter Template Text not used by [place] [...] 20 appointments. The data comes from all [facility]. Appointment Date/Time Appointment Type Appointme nt Facility Name Jul 20, 2024 10:00 AM AMBULATORY - MEDICINE [facility] Aug 02, 2024 09:45 AM AMBULATORY - MEDICINE [facility] Aug 24, 2024 10:00 AM AMBULATORY MEDICINE [facility] Aug 24, 2024 10:30 AM AMBULATORY - MEDICINE [facility] Aug 30, 2024 09:30 AM AMBULATORY - MEDICINE [facility] Aug 31, 2024 01:00 PM AMBULATORY - SURGERY [facility] Sep 21, 2024 01:30 PM AMBULATORY - MEDICINE [facility] Sep 22, 2024 11:00 AM AMBULATORY - MEDICINE [facility] Sep 29, 2024 12:30 PM AMBULATORY - MEDICINE [facility] Oct 02, 2024 09:30 AM AMBULATORY - MEDICINE [facility] Nov 20, 2024 10:30 AM AMBULATORY - SURGERY [facility] Nov 21, 2024 10:00 AM AMBULATORY - NONE [facility] Dec 11, 2024 10:30 AM AMBULATORY - MEDICINE [facility] Active, Pending, and Scheduled Orders This section includes a listing of several types of active, pending, and scheduled orders, including clinic medications orders, diagnostic test orders, procedure orders and consult orders; where the start date of the order is 45 days before the date of the Encounter or 45 days after the date of theEncounter. The data comes from all [facility]. Test Date/Time Test Type Test Details Facility Name Aug 02, 2024 12:00 AM Laboratory - Chemistry Order CBC BLOOD STAT SP [facility] Aug 02, 2024 12:00 AM Laboratory - Chemistry Order COMPREHENSIVE METABOLIC PANEL GREEN LI/HEP BLD/PLAS PLASMA SP [facility] Aug 17, 2024 03:47 PM Consult Order [facility] Cons Bedside [facility] Lab Results: +/- 30 days [...] - Unit Interpretation Reference Range Comment Aug 18, 2024 04:49 PM [facility] GLUCOSE,BLOOD-poct (STL) Specimen Type: BLOOD Comment: Test Performed by: [id number] Meter #: [id number] Ordering Provider: SILVIA REDDY Report Released Date/Time: Aug 18, 2024 05:01 PM Reporting Lab: [facility] [address] Performing Lab: [facility] [address] GLUCOSE,BLOOD- poct (STL) 129 mg/dL H 72-99 Aug 18, 2024 11:23 AM [facility] GLUCOSE,BLOOD-poct (STL) Specimen Type: BLOOD Comment: Test Performed by: [id number] Meter #: [id number] Ordering Provider: SILVIA REDDY Report Released Date/Time: Aug 18, 2024 11:41 AM Reporting Lab: [facility] [address] Performing Lab: [facility] [facility] [address] GLUCOSE,BLOOD- poct (STL) 180 mg/dL H 72-99 Aug 18, 2024 05:08 AM [facility] GLUCOSE,BLOOD-poct (STL) Specimen Type: BLOOD Comment: Test Performed by: [id number] Meter #: [id number] Ordering Provider: SILVIA REDDY Report Released Date/Time: Aug 18, 2024 05:31 AM Reporting Lab: [facility] [address] Performing Lab: [facility] [address] GLUCOSE,BLOOD- poct (STL) 127 mg/dL H -Aug 17, 2024 07:32 PM [facility] GLUCOSE,BLOOD-poct (STL) Specimen Type: BLOOD Comment: Test Performed by: [id number] Meter #: [id number] Ordering Provider: SILVIA REDDY Report Released Date/Time: Aug 17, 2024 07:59 PM Reporting Lab: [facility] [facility] [address] Performing Lab: [facility] [address] GLUCOSE,BLOOD- poct (STL) 154 mg/dL H -Aug 17, 2024 04:24 PM [facility] GLUCOSE,BLOOD-poct (STL) Specimen Type: BLOOD Comment: Test Performed by: [id number] Meter #: [id number] Ordering Provider: SILVIA REDDY Report Released Date/Time: Aug 17, 2024 04:35 PM Reporting Lab: [facility] [address] Performing Lab: [facility] [address] GLUCOSE,BLOOD- poct (STL) 178 mg/dL H Aug 17, 2024 05:09 AM [facility] GLUCOSE,BLOOD-poct (STL) Specimen Type: BLOOD Comment: Test Performed by: [id number] Meter #: [id number] Ordering Provider: SILVIA REDDY Report Released Date/Time: Aug 17, 2024 05:54 AM Reporting Lab: [facility] [facility] [address] Performing Lab: [facility] [address] GLUCOSE,BLOOD- poct (STL) 124 mg/dL H Aug 16, 2024 07:40 PM [facility] GLUCOSE,BLOOD-poct (STL) Specimen Type: BLOOD Comment: Test Performed by: [id number] Meter #: [id number] Ordering Provider: SILVIA REDDY Report Released Date/Time: Aug 16, 2024 08:28 PM Reporting Lab: [facility] [place] [address] Performing Lab: [facility] [address] GLUCOSE,BLOOD- poct (STL) 144 mg/dL H Aug 16, 2024 04:19 PM [facility] GLUCOSE,BLOOD-poct (STL) Specimen Type: BLOOD Comment: Test Performed by: [id number] Meter #: [id number] Ordering Provider: SILVIA REDDY Report Released Date/Time: Aug 16, 2024 04:45 PM Reporting Lab: [facility] [place] [address] Performing Lab: [facility] [place] [address] GLUCOSE,BLOOD- poct (STL) 138 mg/dL H Aug 16, 2024 11:52 AM [facility] GLUCOSE,BLOOD-poct (STL) Specimen Type: BLOOD Comment: Test Performed by: [id number] Meter #: [id number] Ordering Provider: SILVIA REDDY Report Released Date/Time: Aug 16, 2024 12:04 PM Reporting Lab: [facility] [place] [address] Performing Lab: [facility] [place] [address] GLUCOSE,BLOOD- poct (STL) 135 mg/dL H Aug 16, 2024 05:24 AM [facility] GLUCOSE,BLOOD-poct (STL) Specimen Type: BLOOD Comment: Test Performed by: [id number] Meter #: [id number] Ordering Provider: SILVIA REDDY Report Released Date/Time: Aug 16, 2024 05:38 AM Reporting Lab: [facility] [facility] [address] Performing Lab: [facility] [address] GLUCOSE,BLOOD- poct (STL) 151 mg/dL H 72-Aug 15, 2024 07:31 PM [facility] GLUCOSE,BLOOD-poct (STL) Specimen Type: BLOOD Comment: Test Performed by: [id number] Meter #: [id number] Ordering Provider: SILVIA REDDY Report Released Date/Time: Aug 15, 2024 08:07 PM Reporting Lab: [facility] [facility] [address] Performing Lab: [facility] [facility] [address] GLUCOSE,BLOOD- poct (STL) 173 mg/dL H Aug 15, 2024 04:18 PM [facility] GLUCOSE,BLOOD-poct (STL) Specimen Type: BLOOD Comment: Test Performed by: [id number] Meter #: [id number] Ordering Provider: SILVIA REDDY Report Released Date/Time: Aug 15, 2024 04:59 PM Reporting Lab: [facility] [address] Performing Lab: [facility] [facility] [address] GLUCOSE,BLOOD- poct (STL) 136 mg/dL H Aug 15, 2024 04:16 PM [facility] GLUCOSE,BLOOD-poct (STL) Specimen Type: BLOOD Comment: Test Performed by: [id number] Meter #: [id number] Ordering Provider: SILVIA REDDY Report Released Date/Time: Aug 15, 2024 04:59 PM Reporting Lab: [facility] [address] Performing Lab: [facility] [address] GLUCOSE,BLOOD- poct (STL) 194 mg/dL H -Aug 15, 2024 11:39 AM [facility] GLUCOSE,BLOOD-poct (STL) Specimen Type: BLOOD Comment: Test Performed by: [id number] Meter #: [id number] Ordering Provider: SILVIA REDDY Report Released Date/Time: Aug 15, 2024 12:00 PM Reporting Lab: [facility] [facility] [address] Performing Lab: [facility] [facility] [address] GLUCOSE,BLOOD- poct (STL) 127 mg/dL H Aug 15, 2024 05:07 AM [facility] GLUCOSE,BLOOD-poct (STL) Specimen Type: BLOOD Comment: Test Performed by: [id number] Meter #: [id number] Ordering Provider: SILVIA REDDY Report Released Date/Time: Aug 15, 2024 06:14 AM Reporting Lab: [facility] [address] Performing Lab: [facility] [address] GLUCOSE,BLOOD- poct (STL) 151 mg/dL H Aug 14, 2024 04:22 PM [facility] GLUCOSE,BLOOD-poct (STL) Specimen Type: BLOOD Comment: Test Performed by: [id number] Meter #: [id number] Ordering Provider: SILVIA REDDY Report Released Date/Time: Aug 14, 2024 04:52 PM Reporting Lab: [facility] [facility] [address] Performing Lab: [facility] [address] GLUCOSE,BLOOD- poct (STL) 129 mg/dL H Aug 14, 2024 11:21 AM [facility] GLUCOSE,BLOOD-poct (STL) Specimen Type: BLOOD Comment: Test Performed by: [id number] Meter #: [id number] Ordering Provider: SILVIA REDDY Report Released Date/Time: Aug 14, 2024 11:37 AM Reporting Lab: [facility] [address] Performing Lab: [facility] [address] GLUCOSE,BLOOD- poct (STL) 135 mg/dL H 72-99 Aug 14, 2024 06:59 AM [facility] QUANTIFERON-TB,4 TUBE Specimen Type: BLOOD Comment: normalcy [...] For additional information, please refer to http://education. bVisual. [employer]/faq/YFD883 (This link is being provided for information/ educational purposes only.) Test Performed by [employer], [place] [facility], [address] [place] [address] Tommie Garcia M.D., Ph.D., Director of Laboratories , [facility] [id number] Ordering Provider: SILVIA REDDY Report Released Date/Time: Aug 11, 2024 03:58 PM Reporting Lab: [facility] [address] [place] [address] Performing Lab: [facility] [address] [facility] .NIL - QUANTIFERON 0.04 [IU]/mL .MITOGEN-NIL 0.39 [IU]/mL .QUANTIFERON INDETERMINATE NEGATIVE .TB1-NIL <0.00 [IU]/mL .TB2-NIL <0.00 [IU]/mL Aug 14, 2024 06:59 AM [facility] MAGNESIUM Specimen Type: PLASMA Comment: No hemolysis noted. Ordering Provider: SILVIA REDDY Report Released Date/Time: Aug 11, 2024 03:58 PM Reporting Lab: [facility] [place] [address] Performing Lab: [facility] [place] [address] MAGNESIUM 1.9 mg/dL 1.6-2.6 Aug 14, 2024 06:59 AM [facility] B12 Specimen Type: SERUM No comment entered. Ordering Provider: SILVIA REDDY Report Released Date/Time: Aug 11, 2024 03:58 PM Reporting Lab: [facility] [place] [address] Performing Lab: [facility] [place] [address] B12 757 pg/mL 213-816 Aug 14, 2024 06:59 AM [facility] COMPREHENSIVE METABOLIC PANEL Specimen Type: PLASMA Comment: No hemolysis noted. Ordering Provider: SILVIA REDDY Report Released Date/Time: Aug 11, 2024 03:58 PM Reporting Lab: [facility] [address] Performing Lab: [facility] [address] CREATININE 0.75 mg/dL 0.70-1.30 UREA NITROGEN 13.6 [...] 95.88 >60 Aug 14, 2024 06:59 AM [facility] CBC Specimen Type: BLOOD No comment entered. Ordering Provider: SILVIA REDDY Report Released Date/Time: Aug 11, 2024 03:58 PM Reporting Lab: [facility] [address] Performing Lab: [facility] [address] WBC 4.1 10*3/uL 3.6-11.2 RBC 3.20 10*6/uL [...] 10*3/uL 0.00-0.20 Aug 14, 2024 06:59 AM [facility] FOLATE (STL-MA) Specimen Type: SERUM No comment entered. Ordering Provider: SILVIA REDDY Report Released Date/Time: Aug 11, 2024 03:58 PM Reporting Lab: [facility] [address] Performing Lab: [facility] [address] FOLATE (STL-MA) 6.8 ng/mL L 7-20 Aug 14, 2024 06:59 AM [facility] VITAMIN D, 25-HYDROXY Specimen Type: SERUM No comment entered. Ordering Provider: SILVIA REDDY Report Released Date/Time: Aug 11, 2024 03:58 PM Reporting Lab: [facility] [address] Performing Lab: [facility] [address] VITAMIN D, 25-HYDROXY 8.9 ng/mL L 30-96 Aug 14, 2024 05:08 AM [facility] GLUCOSE,BLOOD-poct (STL) Specimen Type: BLOOD Comment: Test Performed by: [id number] Meter #: [id number] Ordering Provider: SILVIA REDDY Report Released Date/Time: Aug 14, 2024 05:52 AM Reporting Lab: [facility] [address] Performing Lab: [facility] [address] GLUCOSE,BLOOD- poct (STL) 135 mg/dL H 72-99 Aug 13, 2024 04:27 PM [facility] GLUCOSE,BLOOD-poct (STL) Specimen Type: BLOOD Comment: Test Performed by: [id number] Meter #: [id number] Ordering Provider: SILVIA REDDY Report Released Date/Time: Aug 13, 2024 04:41 PM Reporting Lab: [facility] [place] [address] Performing Lab: [facility] [address] GLUCOSE,BLOOD- poct (STL) 181 mg/dL H -Aug 13, 2024 11:33 AM [facility] GLUCOSE,BLOOD-poct (STL) Specimen Type: BLOOD Comment: Test Performed by: [id number] Meter #: [id number] Ordering Provider: SILVIA REDDY Report Released Date/Time: Aug 13, 2024 03:55 PM Reporting Lab: [facility] [address] Performing Lab: [facility] [address] GLUCOSE,BLOOD- poct (STL) 140 mg/dL H Aug 13, 2024 05:54 AM [facility] GLUCOSE,BLOOD-poct (STL) Specimen Type: BLOOD Comment: Test Performed by: [id number] Meter #: [id number] Ordering Provider: SILVIA REDDY Report Released Date/Time: Aug 13, 2024 06:20 AM Reporting Lab: [facility] [address] Performing Lab: [facility] [facility] [address] GLUCOSE,BLOOD- poct (STL) 112 mg/dL H Aug 12, 2024 04:35 PM [facility] GLUCOSE,BLOOD-poct (STL) Specimen Type: BLOOD Comment: Test Performed by: [id number] Meter #: [id number] Ordering Provider: SILVIA REDDY Report Released Date/Time: Aug 12, 2024 04:47 PM Reporting Lab: [facility] [address] Performing Lab: [facility] [address] GLUCOSE,BLOOD- poct (STL) 128 mg/dL H Aug 12, 2024 11:26 AM [facility] GLUCOSE,BLOOD-poct (STL) Specimen Type: BLOOD Comment: Test Performed by: [id number] Meter #: [id number] Ordering Provider: SILVIA REDDY Report Released Date/Time: Aug 12, 2024 11:45 AM Reporting Lab: [facility] [address] Performing Lab: [facility] [address] GLUCOSE,BLOOD- poct (STL) 188 mg/dL H -Aug 12, 2024 06:13 AM [facility] GLUCOSE,BLOOD-poct (STL) Specimen Type: BLOOD Comment: Test Performed by: [id number] Meter #: [id number] Ordering Provider: SILVIA REDDY Report Released Date/Time: Aug 12, 2024 06:25 AM Reporting Lab: [facility] [address] Performing Lab: [facility] [address] GLUCOSE,BLOOD- poct (STL) 116 mg/dL H -Aug 11, 2024 04:10 PM [facility] GLUCOSE,BLOOD-poct (STL) Specimen Type: BLOOD Comment: Test Performed by: [id number] Meter #: [id number] Ordering Provider: SILVIA REDDY Report Released Date/Time: Aug 11, 2024 04:27 PM Reporting Lab: [facility] [address] Performing Lab: [facility] [facility] [address] GLUCOSE,BLOOD- poct (STL) 184 mg/dL H -Aug 11, 2024 01:44 PM [facility] MRSA SURVL NARES DNA Specimen Type: NARES [...] Aug 11, 2024 02:03 PM Reporting Lab: [facility] [address] [place] [address] Performing Lab: [address] [address] MRSA SURVL NARES DNA Negative Negative Jul 20, 2024 11:18 AM [facility] APTT Specimen Type: PLASMA No comment entered. Ordering Provider: MANUEL BAIRD Report Released Date/Time: Jul 19, 2024 04:00 PM Reporting Lab: [address] [address] Performing Lab: [address] [address] APTT 32.1 s 26.7-39.9 Jul 20, 2024 11:18 AM [facility] PT/INR [facility] ([facility]) Specimen Type: PLASMA No comment entered. Ordering Provider: MANUEL BAIRD Report Released Date/Time: Jul 19, 2024 04:00 PM Reporting Lab: [address] [address] Performing Lab: [address] [address] PROTIME 14.4 s H 9.4-12.5 INR VALUE 1.3 {INR} Jul 20, 2024 11:18 AM [facility] CBC Specimen Type: BLOOD No comment entered. Ordering Provider: MANUEL BAIRD Report Released Date/Time: Jul 19, 2024 04:00 PM Reporting Lab: [place] [address] [facility] [address] Performing Lab: [address] [address] WBC 4.7 10*3/uL 3.6-11.2 RBC 4.86 10*6/uL [...] 1.0-7.0 Jul 17, 2024 08:02 AM [facility] BASIC METABOLIC PANEL Specimen Type: PLASMA Comment: No hemolysis noted. Ordering Provider: MARY SERNA Report Released Date/Time: Jun 07, 2024 01:43 PM Reporting Lab: [facility] [address] [facility] [address] Performing Lab: [facility] [address] [facility] [address] CREATININE 0.85 mg/dL 0.7-1.3 UREA NITROGEN 15.2 [...] AM QUIT TOBACCO >7 YEARS AGO [facility] Tobacco Use History This section includes a history of the smoking, or tobacco-related health factors, that were collected on or before the date of the Encounter. The data comes from the [place] facility where the Encounter took place. Date/Time Smoking Status/Tobacco Use Comment F acility Sep 30, 2015 10:12 AM QUIT TOBACCO >7 YEARS AGO [facility] Oct 29, 2014 10:23 AM QUIT TOBACCO >7 YEARS AGO [facility] Dec 27, 2013 01:27 PM QUIT TOBACCO >7 YEARS AGO [facility] Feb 24, 2013 02:01 PM LIFETIME NON-USER OF TOBACCO [facility] Feb 11, 2009 10:09 AM QUIT TOBACCO >7 YEARS AGO [facility] Oct 06, 2006 09:30 AM CURRENT NON-TOBACC O USER-HX OF USE [facility] Oct 06, 2006 09:30 AM TOBACCO TERMINATION STAGE [facility] Advance Directives: All historical and current Section Date Range: From patient's date of to the date document was created. This section includes ALL of a patient's completed or amended [place] Advance and Rescinded Directives. The entries below indicate that a directive exists for the patient, but an actual copy is not included with this document. The data comes from all [facility]. Date Advance Directives Provider Source Jan 19, 2017 ADVANCE DIRECTIVE DISCUSSION ERICK BARDALES [facility] Encounter Notes: All associated encounter notes This section contains the clinical notes associated to the Encounter. 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: URGENCY: STATUS: COMPLETED Patient/Other contacted: Patient [phone] Patient Identifiers : Full Name Date of Telephone Number Other: -Recieved Fax [facility] PRE OPP ASSESMENT VISIT Request for repeat labs for clotted labs drawn at [facility]- patient states he was agreeable to get repeat at [place] Patient needs CBC PTT PT/INR Patient din't seem aware that labs were clotted and seemed to get anxieous about if he was going to be able to have his surgery 07/24/24- Patient also got upset as he has had several lab draws- asked the patient that he got labs at [facility] on 07/14/24- he comfirmed- explained that some of those were clotted and will need to be redone. Patient states he will be at [facility] for a Pharmacy appointment in AM -Patient informed that he will be able to complete Labs at that time Contacted RN from Pre op dept at [facility] informed that patient had not come in for labs and when called didn't seem to know that his prior labs were clotted, Explained that patient has appointment in clinic in AM and patient is agreeable to get labs tommorrow Contact provided Primary Care phone number and encouraged to call if any questions or concerns. Review that after hours nurse line ext. [phone] and emergency room are available 31/05 for patient use. Contact understanding verified by teach back: Yes Total time spent on phone: 5 For intervention, information forwarded to irene Baird /shen/ [facility] REGISTERED NURSE Signed: 07/19/2024 14:54 CHAR[facility]ALL [facility]
--- OUTSIDE RECORDS SUMMARY | 2024-11-17 03:58 | XMS_ITS | Encounter Summary ---
Author Name [facility] [place] [facility] [place] [facility] [place] Address [address] [place] [address] Care Team Providers Care Bedspread Inspector Name Role Phone MANUEL BAIRD Primary [...] PART A Apr 08, 2017 PART A [phone] ASHLEY WALKER PATIENT Selected Encounter This section includes the information on record at [place] for the Encounter. Date/Time Encounter Type Encounter Description Reason Pro vider Source Aug 03, 2024 08:34 AM Outpatient Encounter GENERAL INTERNAL MEDICINE [facility] Encounter Template Text not used by [place] Plan of Treatment: Future Appointments (+ 6 [...] 24, 2024 10:00 AM AMBULATORY - MEDICINE [facility] Aug 24, 2024 10:30 AM AMBULATORY - MEDICINE [facility] Aug 30, 2024 09:30 AM AMBULATORY MEDICINE [facility] Aug 31, 2024 01:00 PM AM[facility]ULATORY [facility] SUR[facility]ERY [facility] Sep 21, 2024 01:30 PM AMBULATORY - MEDICINE [facility] Sep 22, 2024 11:00 AM AMBULATORY - MEDICINE [facility] Sep 29, 2024 12:30 PM AMBULATORY - MEDICINE [facility] Oct 02, 2024 09:30 AM AMBULATORY - MEDICINE [facility] Nov 20, 2024 10:30 AM [facility]ULATORY - SUR[facility]ERY [facility] Nov 21, 2024 10:00 AM AMBULATORY - NONE [facility] Dec 11, 2024 10:30 AM AMBULATORY - MEDICINE [facility] Active, Pending, and Scheduled Orders This section includes a listing of several types of active, pending, and scheduled orders, including clinic medications orders, diagnostic test orders, procedure orders and consult orders; where the start date of the order is 45 days before the date of the Encounter or 45 days after the date of theEncounter. The data comes from all [facility]. Test Date/Time Test Type Test Details Facility Name Aug 02, 2024 12:00 AM Laboratory - Chemistry Order CBC BLOOD STAT SP [facility] Aug 02, 2024 12:00 AM Laboratory - Chemistry Order COMPREHENSIVE METABOLIC PANEL GREEN LI/HEP BLD/PLAS PLASMA SP [facility] Aug 17, 2024 03:47 PM Consult Order [facility] Cons Bedside [facility] Lab Results: +/- 30 days of the [...] Range Comment Aug 23, 2024 08:21 AM [facility] MAGNESIUM Specimen Type: PLASMA No comment entered. Ordering Provider: SILVIA ERDDY Report Released Date/Time: Aug 22, 2024 11:26 AM Reporting Lab: [facility] [facility] [address] Performing Lab: [facility] [facility] [address] MAGNESIUM 1.8 mg/dL 1.6-2.6 Aug 23, 2024 08:21 AM [facility] CBC Specimen Type: BLOOD No comment entered. Ordering Provider: SILVIA REDDY Report Released Date/Time: Aug 22, 2024 11:19 AM Reporting Lab: [facility] [address] [facility] [address] Performing Lab: [facility] [facility] [address] WBC 4.0 10*3/uL 3.6-11.2 RBC 3.65 10*6/uL [...] 10*3/uL 0.00-0.20 Aug 23, 2024 05:12 AM [facility] GLUCOSE,BLOOD-poct (STL) Specimen Type: BLOOD Comment: Test Performed by: [id number] Meter #: [id number] Ordering Provider: SILVIA REDDY Report Released Date/Time: Aug 23, 2024 05:23 AM Reporting Lab: [facility] [facility] [address] Performing Lab: [facility] [facility] [address] GLUCOSE,BLOOD- poct (STL) 99 mg/dL 72-99 Aug 23, 2024 02:45 AM [facility] OCCULT BLOOD FIT X1 SCREEN Specimen Type: FECES No comment entered. Ordering Provider: SILVIA REDDY Report Released Date/Time: Aug 22, 2024 11:23 AM Reporting Lab: [address] [address] Performing Lab: [address] [address] OCCULT BLOOD (FIT) #1 OF 1 Negative Negative Aug 22, 2024 07:30 PM [facility] OCCULT BLOOD FIT X1 SCREEN Specimen Type: FECES No comment entered. Ordering Provider: SILVIA REDDY Report Released Date/Time: Aug 22, 2024 11:23 AM Reporting Lab: [address] [address] Performing Lab: [address] [address] OCCULT BLOOD (FIT) #1 OF 1 Negative Negative Aug 22, 2024 06:15 PM [facility] OCCULT BLOOD FIT X1 SCREEN Specimen Type: FECES No comment entered. Ordering Provider: SILVIA REDDY Report Released Date/Time: Aug 22, 2024 11:23 AM Reporting Lab: [address] [address] Performing Lab: [address] [place] [address] OCCULT BLOOD (FIT) #1 OF 1 Negative Negative Aug 22, 2024 04:24 PM [facility] GLUCOSE,BLOOD-poct (STL) Specimen Type: BLOOD Comment: Test Performed by: [id number] Meter #: [id number] Ordering Provider: SILVIA REDDY Report Released Date/Time: Aug 22, 2024 04:36 PM Reporting Lab: [facility] [facility] [address] Performing Lab: [facility] [facility] [address] GLUCOSE,BLOOD- poct (STL) 176 mg/dL H 72-Aug 22, 2024 04:23 PM [facility] GLUCOSE,BLOOD-poct (STL) Specimen Type: BLOOD Comment: Test Performed by: [id number] Meter #: [id number] Ordering Provider: SILVIA REDDY Report Released Date/Time: Aug 22, 2024 04:36 PM Reporting Lab: [facility] [facility] [address] Performing Lab: [facility] [facility] [address] GLUCOSE,BLOOD- poct (STL) 221 mg/dL H 72-99 Aug 22, 2024 11:15 AM [facility] GLUCOSE,BLOOD-poct (STL) Specimen Type: BLOOD Comment: Test Performed by: [id number] Meter #: [id number] Ordering Provider: SILVIA REDDY Report Released Date/Time: Aug 22, 2024 11:27 AM Reporting Lab: [facility] [facility] [address] Performing Lab: [facility] [facility] [address] GLUCOSE,BLOOD- poct (STL) 140 mg/dL H 72-99 Aug 22, 2024 08:03 AM [facility] FERRITIN Specimen Type: SERUM No comment entered. Ordering Provider: JUDIT PERKINS Report Released Date/Time: Aug 18, 2024 11:01 AM Reporting Lab: [facility] [address] [facility] [address] Performing Lab: [facility] [address] [facility] [address] FERRITIN 79.50 ng/mL 22-275 Aug 22, 2024 08:03 AM [facility] COMPREHENSIVE METABOLIC PANEL Specimen Type: PLASMA Comment: No hemolysis noted. Ordering Provider: SILVIA REDDY Report Released Date/Time: Aug 17, 2024 01:18 PM Reporting Lab: [facility] [address] [facility] [address] Performing Lab: [address] [address] CREATININE 0.80 mg/dL 0.7-1.3 UREA NITROGEN 9.7 [...] 94.0 >60 Aug 22, 2024 08:03 AM [facility] IRON/TIBC PROFILE Specimen Type: SERUM No comment entered. Ordering Provider: JUDIT PERKINS Report Released Date/Time: Aug 18, 2024 11:01 AM Reporting Lab: [facility] [address] [facility] [address] Performing Lab: [facility] [address] [place] [address] TIBC 283 ug/dL 250-450 TRANSFERRIN 226 mg/dL 163-344 IRON SATURATION 7 L 20-50 IRON 19 ug/dL L 65-175 Aug 22, 2024 08:03 AM [facility] CBC Specimen Type: BLOOD No comment entered. Ordering Provider: SILVIA REDDY Report Released Date/Time: Aug 17, 2024 01:18 PM Reporting Lab: [facility] [facility] [address] Performing Lab: [facility] [facility] [address] WBC 3.5 10*3/uL L 3.6-11.2 RBC 3.23 [...] 10*3/uL 0.00-0.20 NRBC% 0 Aug 22, 2024 08:03 AM [facility] B12 Specimen Type: SERUM No comment entered. Ordering Provider: JUDIT PERKINS Report Released Date/Time: Aug 18, 2024 11:01 AM Reporting Lab: [facility] [address] [facility] [address] Performing Lab: [facility] [facility] [address] B12 631 pg/mL 213-816 Aug 22, 2024 05:03 AM [facility] GLUCOSE,BLOOD-poct (STL) Specimen Type: BLOOD Comment: Test Performed by: [id number] Meter #: [id number] Ordering Provider: SILVIA REDDY Report Released Date/Time: Aug 22, 2024 06:17 AM Reporting Lab: [facility] [address] [facility] [address] Performing Lab: [facility] [address] [facility] [address] GLUCOSE,BLOOD- poct (STL) 170 mg/dL H 72-99 Aug 21, 2024 04:32 PM [facility] GLUCOSE,BLOOD-poct (STL) Specimen Type: BLOOD Comment: Test Performed by: [id number] Meter #: [id number] Ordering Provider: SILVIA REDDY Report Released Date/Time: Aug 21, 2024 04:49 PM Reporting Lab: [facility] [address] [facility] [address] Performing Lab: [facility] [address] GLUCOSE,BLOOD- poct (STL) 169 mg/dL H 72-99 Aug 21, 2024 11:53 AM [facility] GLUCOSE,BLOOD-poct (STL) Specimen Type: BLOOD Comment: Test Performed by: [id number] Meter #: [id number] Ordering Provider: SILVIA REDDY Report Released Date/Time: Aug 21, 2024 12:11 PM Reporting Lab: [facility] [address] [facility] [address] Performing Lab: [facility] [address] [facility] [address] GLUCOSE,BLOOD- poct (STL) 149 mg/dL H 72-99 Aug 21, 2024 05:10 AM [facility] GLUCOSE,BLOOD-poct (STL) Specimen Type: BLOOD Comment: Test Performed by: [id number] Meter #: [id number] Ordering Provider: SILVIA REDDY Report Released Date/Time: Aug 21, 2024 05:27 AM Reporting Lab: [facility] [address] [place] [address] Performing Lab: [facility] [address] [place] [address] GLUCOSE,BLOOD- poct (STL) 118 mg/dL H 72-99 Aug 20, 2024 04:38 PM [facility] GLUCOSE,BLOOD-poct (STL) Specimen Type: BLOOD Comment: Test Performed by: [id number] Meter #: [id number] Ordering Provider: SILVIA REDDY Report Released Date/Time: Aug 21, 2024 01:55 AM Reporting Lab: [facility] [address] [place] [address] Performing Lab: [facility] [address] [place] [address] GLUCOSE,BLOOD- poct (STL) 169 mg/dL H -Aug 20, 2024 04:36 PM [facility] GLUCOSE,BLOOD-poct (STL) Specimen Type: BLOOD Comment: Test Performed by: [id number] Meter #: [id number] Ordering Provider: SILVIA REDDY Report Released Date/Time: Aug 21, 2024 01:55 AM Reporting Lab: [facility] [address] [place] [address] Performing Lab: [facility] [address] [place] [address] GLUCOSE,BLOOD- poct (STL) 395 mg/dL H 72-99 Aug 20, 2024 11:45 AM [facility] GLUCOSE,BLOOD-poct (STL) Specimen Type: BLOOD Comment: Test Performed by: [id number] Meter #: [id number] Ordering Provider: SILVIA REDDY Report Released Date/Time: Aug 20, 2024 11:56 AM Reporting Lab: [facility] [address] [place] [address] Performing Lab: [facility] [facility] [address] GLUCOSE,BLOOD- poct (STL) 169 mg/dL H -Aug 20, 2024 05:06 AM [facility] GLUCOSE,BLOOD-poct (STL) Specimen Type: BLOOD Comment: Test Performed by: [id number] Meter #: [id number] Ordering Provider: SILVIA REDDY Report Released Date/Time: Aug 20, 2024 06:05 AM Reporting Lab: [facility] [facility] [address] Performing Lab: [facility] [address] [facility] [address] GLUCOSE,BLOOD- poct (STL) 115 mg/dL H Aug 19, 2024 04:23 PM [facility] GLUCOSE,BLOOD-poct (STL) Specimen Type: BLOOD Comment: Test Performed by: [id number] Meter #: [id number] Ordering Provider: SILVIA REDDY Report Released Date/Time: Aug 19, 2024 05:54 PM Reporting Lab: [facility] [facility] [address] Performing Lab: [facility] [facility] [address] GLUCOSE,BLOOD- poct (STL) 137 mg/dL H Aug 19, 2024 11:28 AM [facility] GLUCOSE,BLOOD-poct (STL) Specimen Type: BLOOD Comment: Test Performed by: [id number] Meter #: [id number] Ordering Provider: SILVIA REDDY Report Released Date/Time: Aug 19, 2024 11:51 AM Reporting Lab: [facility] [facility] [address] Performing Lab: [facility] [facility] [address] GLUCOSE,BLOOD- poct (STL) 190 mg/dL H Aug 19, 2024 05:21 AM [facility] GLUCOSE,BLOOD-poct (STL) Specimen Type: BLOOD Comment: Test Performed by: [id number] Meter #: [id number] Ordering Provider: SILVIA REDDY Report Released Date/Time: Aug 19, 2024 05:56 AM Reporting Lab: [facility] [facility] [address] Performing Lab: [facility] [address] GLUCOSE,BLOOD- poct (STL) 130 mg/dL H Aug 18, 2024 04:49 PM [facility] GLUCOSE,BLOOD-poct (STL) Specimen Type: BLOOD Comment: Test Performed by: [id number] Meter #: [id number] Ordering Provider: SILVIA REDDY Report Released Date/Time: Aug 18, 2024 05:01 PM Reporting Lab: [facility] [facility] [address] Performing Lab: [facility] [address] GLUCOSE,BLOOD- poct (STL) 129 mg/dL H Aug 18, 2024 11:23 AM [facility] GLUCOSE,BLOOD-poct (STL) Specimen Type: BLOOD Comment: Test Performed by: [id number] Meter #: [id number] Ordering Provider: SILVIA REDDY Report Released Date/Time: Aug 18, 2024 11:41 AM Reporting Lab: [facility] [address] [facility] [address] Performing Lab: [facility] [facility] [address] GLUCOSE,BLOOD- poct (STL) 180 mg/dL H Aug 18, 2024 05:08 AM [facility] GLUCOSE,BLOOD-poct (STL) Specimen Type: BLOOD Comment: Test Performed by: [id number] Meter #: [id number] Ordering Provider: SILVIA REDDY Report Released Date/Time: Aug 18, 2024 05:31 AM Reporting Lab: [facility] [facility] [address] Performing Lab: [facility] [address] [place] [phone] GLUCOSE,BLOOD- poct (STL) 127 mg/dL H -Aug 17, 2024 07:32 PM [facility] GLUCOSE,BLOOD-poct (STL) Specimen Type: BLOOD Comment: Test Performed by: [id number] Meter #: [id number] Ordering Provider: SILVIA REDDY Report Released Date/Time: Aug 17, 2024 07:59 PM Reporting Lab: [facility] [facility] [address] Performing Lab: [facility] [place] [address] GLUCOSE,BLOOD- poct (STL) 154 mg/dL H -Aug 17, 2024 04:24 PM [facility] GLUCOSE,BLOOD-poct (STL) Specimen Type: BLOOD Comment: Test Performed by: [id number] Meter #: [id number] Ordering Provider: SILVIA REDDY Report Released Date/Time: Aug 17, 2024 04:35 PM Reporting Lab: [facility] [place] [phone] Performing Lab: [facility] [place] [address] GLUCOSE,BLOOD- poct (STL) 178 mg/dL H -Aug 17, 2024 05:09 AM [facility] GLUCOSE,BLOOD-poct (STL) Specimen Type: BLOOD Comment: Test Performed by: [id number] Meter #: [id number] Ordering Provider: SILVIA REDDY Report Released Date/Time: Aug 17, 2024 05:54 AM Reporting Lab: [facility] [place] [address] Performing Lab: [facility] [facility] [address] GLUCOSE,BLOOD- poct (STL) 124 mg/dL H -Aug 16, 2024 07:40 PM [facility] GLUCOSE,BLOOD-poct (STL) Specimen Type: BLOOD Comment: Test Performed by: [id number] Meter #: [id number] Ordering Provider: SILVIA REDDY Report Released Date/Time: Aug 16, 2024 08:28 PM Reporting Lab: [facility] [facility] [address] Performing Lab: [facility] [facility] [address] GLUCOSE,BLOOD- poct (STL) 144 mg/dL H Aug 16, 2024 04:19 PM [facility] GLUCOSE,BLOOD-poct (STL) Specimen Type: BLOOD Comment: Test Performed by: [id number] Meter #: [id number] Ordering Provider: SILVIA REDDY Report Released Date/Time: Aug 16, 2024 04:45 PM Reporting Lab: [facility] [facility] [address] Performing Lab: [facility] [facility] [address] GLUCOSE,BLOOD- poct (STL) 138 mg/dL H Aug 16, 2024 11:52 AM [facility] GLUCOSE,BLOOD-poct (STL) Specimen Type: BLOOD Comment: Test Performed by: [id number] Meter #: [id number] Ordering Provider: SILVIA REDDY Report Released Date/Time: Aug 16, 2024 12:04 PM Reporting Lab: [facility] [facility] [address] Performing Lab: [facility] [facility] [address] GLUCOSE,BLOOD- poct (STL) 135 mg/dL H Aug 16, 2024 05:24 AM [facility] GLUCOSE,BLOOD-poct (STL) Specimen Type: BLOOD Comment: Test Performed by: [id number] Meter #: [id number] Ordering Provider: SILVIA REDDY Report Released Date/Time: Aug 16, 2024 05:38 AM Reporting Lab: [facility] [facility] [address] Performing Lab: [facility] [facility] [address] GLUCOSE,BLOOD- poct (STL) 151 mg/dL H Aug 15, 2024 07:31 PM [facility] GLUCOSE,BLOOD-poct (STL) Specimen Type: BLOOD Comment: Test Performed by: [id number] Meter #: [id number] Ordering Provider: SILVIA REDDY Report Released Date/Time: Aug 15, 2024 08:07 PM Reporting Lab: [facility] [facility] [address] Performing Lab: [facility] [facility] [address] GLUCOSE,BLOOD- poct (STL) 173 mg/dL H Aug 15, 2024 04:18 PM [facility] GLUCOSE,BLOOD-poct (STL) Specimen Type: BLOOD Comment: Test Performed by: [id number] Meter #: [id number] Ordering Provider: SILVIA REDDY Report Released Date/Time: Aug 15, 2024 04:59 PM Reporting Lab: [facility] [facility] [address] Performing Lab: [facility] [facility] [address] GLUCOSE,BLOOD- poct (STL) 136 mg/dL H Aug 15, 2024 04:16 PM [facility] GLUCOSE,BLOOD-poct (STL) Specimen Type: BLOOD Comment: Test Performed by: [id number] Meter #: [id number] Ordering Provider: SILVIA REDDY Report Released Date/Time: Aug 15, 2024 04:59 PM Reporting Lab: [facility] [facility] [address] Performing Lab: [facility] [facility] [address] GLUCOSE,BLOOD- poct (STL) 194 mg/dL H 72-Aug 15, 2024 11:39 AM [facility] GLUCOSE,BLOOD-poct (STL) Specimen Type: BLOOD Comment: Test Performed by: [id number] Meter #: [id number] Ordering Provider: SILVIA REDDY Report Released Date/Time: Aug 15, 2024 12:00 PM Reporting Lab: [facility] [facility] [address] Performing Lab: [facility] [place] [address] GLUCOSE,BLOOD- poct (STL) 127 mg/dL H -Aug 15, 2024 05:07 AM [facility] GLUCOSE,BLOOD-poct (STL) Specimen Type: BLOOD Comment: Test Performed by: [id number] Meter #: [id number] Ordering Provider: SILVIA REDDY Report Released Date/Time: Aug 15, 2024 06:14 AM Reporting Lab: [facility] [facility] [address] Performing Lab: [facility] [facility] [address] GLUCOSE,BLOOD- poct (STL) 151 mg/dL H -Aug 14, 2024 04:22 PM [facility] GLUCOSE,BLOOD-poct (STL) Specimen Type: BLOOD Comment: Test Performed by: [id number] Meter #: [id number] Ordering Provider: SILVIA REDDY Report Released Date/Time: Aug 14, 2024 04:52 PM Reporting Lab: [facility] [place] [address] Performing Lab: [facility] [facility] [address] GLUCOSE,BLOOD- poct (STL) 129 mg/dL H 72-99 Aug 14, 2024 11:21 AM [facility] GLUCOSE,BLOOD-poct (STL) Specimen Type: BLOOD Comment: Test Performed by: [id number] Meter #: [id number] Ordering Provider: SILVIA REDDY Report Released Date/Time: Aug 14, 2024 11:37 AM Reporting Lab: [facility] [facility] [address] Performing Lab: [facility] [facility] [address] GLUCOSE,BLOOD- poct (STL) 135 mg/dL H 72-Aug 14, 2024 06:59 AM [facility] QUANTIFERON-TB,4 TUBE Specimen Type: BLOOD Comment: [...] For additional information, please refer to http://education. ArcMail. Goomeo/faq/WWY997 (This link is being provided for information/ educational purposes only.) Test Performed by [employer] [facility], [address] [place] [address] Tommie Garcia M.D., Ph.D., Director of Laboratories , [facility] [id number] Ordering Provider: SILVIA REDDY Report Released Date/Time: Aug 11, 2024 03:58 PM Reporting Lab: [facility] [address] [facility] [address] Performing Lab: [facility] [id number] [place] [address] .NIL - QUANTIFERON 0.04 [IU]/mL .MITOGEN-NIL 0.39 [IU]/mL .QUANTIFERON INDETERMINATE NEGATIVE .TB1-NIL <0.00 [IU]/mL .TB2-NIL <0.00 [IU]/mL Aug 14, 2024 06:59 AM [facility] MAGNESIUM Specimen Type: PLASMA Comment: No hemolysis noted. Ordering Provider: SILVIA REDDY Report Released Date/Time: Aug 11, 2024 03:58 PM Reporting Lab: [facility] [address] [facility] [address] Performing Lab: [facility] [facility] [address] MAGNESIUM 1.9 mg/dL 1.6-2.6 Aug 14, 2024 06:59 AM [facility] B12 Specimen Type: SERUM No comment entered. Ordering Provider: SILVIA REDDY Report Released Date/Time: Aug 11, 2024 03:58 PM Reporting Lab: [facility] [address] [facility] [address] Performing Lab: [facility] [address] [facility] [address] B12 757 pg/mL 213-816 Aug 14, 2024 06:59 AM [facility] COMPREHENSIVE METABOLIC PANEL Specimen Type: PLASMA Comment: No hemolysis noted. Ordering Provider: SILVIA REDDY Report Released Date/Time: Aug 11, 2024 03:58 PM Reporting Lab: [facility] [address] [facility] [address] Performing Lab: [facility] [facility] [address] CREATININE 0.75 mg/dL 0.70-1.30 UREA NITROGEN 13.6 [...] 95.88 >60 Aug 14, 2024 06:59 AM [facility] CBC Specimen Type: BLOOD No comment entered. Ordering Provider: SILVIA REDDY Report Released Date/Time: Aug 11, 2024 03:58 PM Reporting Lab: [facility] [address] [facility] [address] Performing Lab: [facility] [address] [place] [phone] WBC 4.1 10*3/uL 3.6-11.2 RBC 3.20 10*6/uL [...] 10*3/uL 0.00-0.20 Aug 14, 2024 06:59 AM [facility] FOLATE ([facility]) Specimen Type: SERUM No comment entered. Ordering Provider: SILVIA REDDY Report Released Date/Time: Aug 11, 2024 03:58 PM Reporting Lab: [facility] [place] [address] Performing Lab: [facility] [address] [place] [address] FOLATE ([facility]) 6.8 ng/mL L 7-20 Aug 14, 2024 06:59 AM [facility] VITAMIN D, 25-HYDROXY Specimen Type: SERUM No comment entered. Ordering Provider: SILVIA REDDY Report Released Date/Time: Aug 11, 2024 03:58 PM Reporting Lab: [facility] [facility] [address] Performing Lab: [facility] [address] [place] [address] VITAMIN D, 25-HYDROXY 8.9 ng/mL L 30-96 Aug 14, 2024 05:08 AM [facility] GLUCOSE,BLOOD-poct (L) Specimen Type: BLOOD Comment: Test Performed by: [id number] Meter #: [id number] Ordering Provider: SILVIA REDDY Report Released Date/Time: Aug 14, 2024 05:52 AM Reporting Lab: [facility] [address] [place] [address] Performing Lab: [facility] [address] [place] [address] GLUCOSE,BLOOD- poct (STL) 135 mg/dL H 72-99 Aug 13, 2024 04:27 PM [facility] GLUCOSE,BLOOD-poct (STL) Specimen Type: BLOOD Comment: Test Performed by: [id number] Meter #: [id number] Ordering Provider: SILVIA REDDY Report Released Date/Time: Aug 13, 2024 04:41 PM Reporting Lab: [facility] [facility] [phone] Performing Lab: [facility] [address] GLUCOSE,BLOOD- poct (STL) 181 mg/dL H 72-Aug 13, 2024 11:33 AM [facility] GLUCOSE,BLOOD-poct (STL) Specimen Type: BLOOD Comment: Test Performed by: [id number] Meter #: [id number] Ordering Provider: SILVIA REDDY Report Released Date/Time: Aug 13, 2024 03:55 PM Reporting Lab: [facility] [place] [address] Performing Lab: [facility] [place] [address] GLUCOSE,BLOOD- poct (STL) 140 mg/dL H -Aug 13, 2024 05:54 AM [facility] GLUCOSE,BLOOD-poct (STL) Specimen Type: BLOOD Comment: Test Performed by: [id number] Meter #: [id number] Ordering Provider: SILVIA REDDY Report Released Date/Time: Aug 13, 2024 06:20 AM Reporting Lab: [facility] [place] [address] Performing Lab: [facility] [facility] [address] GLUCOSE,BLOOD- poct (STL) 112 mg/dL H -Aug 12, 2024 04:35 PM [facility] GLUCOSE,BLOOD-poct (STL) Specimen Type: BLOOD Comment: Test Performed by: [id number] Meter #: [id number] Ordering Provider: SILVIA REDDY Report Released Date/Time: Aug 12, 2024 04:47 PM Reporting Lab: [facility] [facility] [address] Performing Lab: [facility] [place] [phone] GLUCOSE,BLOOD- poct (STL) 128 mg/dL H 72-Aug 12, 2024 11:26 AM [facility] GLUCOSE,BLOOD-poct (STL) Specimen Type: BLOOD Comment: Test Performed by: [id number] Meter #: [id number] Ordering Provider: SILVIA REDDY Report Released Date/Time: Aug 12, 2024 11:45 AM Reporting Lab: [facility] [place] [address] Performing Lab: [facility] [place] [address] GLUCOSE,BLOOD- poct (STL) 188 mg/dL H Aug 12, 2024 06:13 AM [facility] GLUCOSE,BLOOD-poct (STL) Specimen Type: BLOOD Comment: Test Performed by: [id number] Meter #: [id number] Ordering Provider: SILVIA REDDY Report Released Date/Time: Aug 12, 2024 06:25 AM Reporting Lab: [facility] [facility] [address] Performing Lab: [facility] [facility] [address] GLUCOSE,BLOOD- poct (STL) 116 mg/dL H -Aug 11, 2024 04:10 PM [facility] GLUCOSE,BLOOD-poct (STL) Specimen Type: BLOOD Comment: Test Performed by: [id number] Meter #: [id number] Ordering Provider: SILVIA REDDY Report Released Date/Time: Aug 11, 2024 04:27 PM Reporting Lab: [facility] [place] [address] Performing Lab: [facility] [place] [id number] GLUCOSE,BLOOD- poct (STL) 184 mg/dL H 72-99 Aug 11, 2024 01:44 PM [facility] MRSA SURVL NARES DNA Specimen Type: [...] Aug 11, 2024 02:03 PM Reporting Lab: [address] [address] Performing Lab: [address] [address] MRSA SURVL NARES DNA Negative Negative Jul 20, 2024 11:18 AM [facility] APTT Specimen Type: PLASMA No comment entered. Ordering Provider: MANUEL BAIRD Report Released Date/Time: Jul 19, 2024 04:00 PM Reporting Lab: [facility] [address] [facility] [address] Performing Lab: [address] [address] APTT 32.1 s 26.7-39.9 Jul 20, 2024 11:18 AM [facility] PT/INR NEW ([facility]) Specimen Type: PLASMA No comment entered. Ordering Provider: MANUEL BAIRD Report Released Date/Time: Jul 19, 2024 04:00 PM Reporting Lab: [facility] [address] [place] [phone] Performing Lab: [address] [address] PROTIME 14.4 s H 9.4-12.5 INR VALUE 1.3 {INR} Jul 20, 2024 11:18 AM [facility] CBC Specimen Type: BLOOD No comment entered. Ordering Provider: MANUEL BAIRD Report Released Date/Time: Jul 19, 2024 04:00 PM Reporting Lab: [facility] [address] [facility] [address] Performing Lab: [address] [address] WBC 4.7 10*3/uL 3.6-11.2 RBC 4.86 10*6/uL [...] 1.0-7.0 Jul 17, 2024 08:02 AM [facility] BASIC METABOLIC PANEL Specimen Type: PLASMA Comment: No hemolysis noted. Ordering Provider: MARY SERNA Report Released Date/Time: Jun 07, 2024 01:43 PM Reporting Lab: [facility] [address] [place] [phone] Performing Lab: [address] [address] CREATININE 0.85 mg/dL 0.7-1.3 UREA NITROGEN 15.2 [...] and tobacco- related health factors from the [place] facility where the Encounter took place. Current Smoking Status This section includes the most current smoking, or tobacco-related health factor, from the [place] facility where the Encounter took place. Date/Time Current Smoking Status Comment Facil ity Aug 11, 2016 10:34 AM QUIT TOBACCO >7 YEARS AGO [facility] Tobacco Use History This section includes a history of the smoking, or tobacco-related health factors, that were collected on or before the date of the Encounter. The data comes from the [place] facility where the Encounter took place. Date/Time Smoking Status/Tobacco Use Comment F acility Sep 30, 2015 10:12 AM QUIT TOBACCO >7 YEARS AGO [facility] Oct 29, 2014 10:23 AM QUIT TOBACCO >7 YEARS AGO [facility] Dec 27, 2013 01:27 PM QUIT TOBACCO >7 YEARS AGO [facility] Feb 24, 2013 02:01 PM LIFETIME NON-USER OF TOBACCO [facility] Feb 11, 2009 10:09 AM QUIT TOBACCO >7 YEARS AGO [facility] Oct 06, 2006 09:30 AM CURRENT NON-TOBACC O USER-HX OF USE [facility] Oct 06, 2006 09:30 AM TOBACCO TERMINATION STAGE [facility] Advance Directives: All historical and current Section Date Range: From patient's date of to the date document was created. This section includes ALL of a patient's completed or amended [place] Advance and Rescinded Directives. The entries below [...] Encounter. Date/Time Encounter Note(s) Provider Source Jul 14, 2024 08:34 AM NONVA CONSULT: LOCAL TITLE: COMMUNITY CARE-CONSULT RESULT NOTE STL STANDARD TITLE: NONVA CONSULT DATE OF NOTE: JUL 14, 2024@08:34 ENTRY DATE: AUG 03, 2024@08:35:04 AUTHOR: NAPOLEON BARRY EXP COSIGNER: URGENCY: STATUS: COMPLETED The following Community Care consult has been completed. See scanned document for report. 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
--- OUTSIDE RECORDS SUMMARY | 2024-11-17 03:58 | XMS_ITS | Encounter Summary ---
Author Name [facility] [place] [facility] [place] [facility] [place] Address [address] [place] [address] Care Team Providers Care Mortgage Specialist Name Role Phone MANUEL BAIRD Primary [...] PART A Apr 08, 2017 PART A [id number] ASHLEY WALKER PATIENT Selected Encounter This section includes the information on record at [place] for the Encounter. 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 Date/Time Primary/Secondary Diagnosis Diagnosis Name Provider Source Jul 20, 2024 10:57 AM PRIMARY Type 2 diabetes w diabetic autonomic (poly)neuropathy REED COLLADO [facility] Jul 20, 2024 10:57 AM SECONDARY Essential (primary) hypertension REED COLLADO [facility] Jul 20, 2024 10:57 AM SECONDARY Hyperlipidemia, unspecified TOBIASREED [facility]AS [facility] Plan of Treatment: Future Appointments (+ 6 months) and Future Tests (+/- 45 days) The Plan of Treatment section includes future care activities for the patient from all [place] [facility] This section includes future appointments and future orders which are active, pending or scheduled. Future Appointments This section includes appointments that were scheduled to occur 6 months from the date of the Encounter, up to a maximum of 20 appointments. The data comes from all [facility]. Appointment Date/Time Appointment Type Appointme nt Facility Name Aug 02, 2024 09:45 AM AMBULATORY - MEDICINE [facility] Aug 24, 2024 10:00 AM AMBULATORY - MEDICINE [facility] Aug 24, 2024 10:30 AM AMBULATORY - MEDICINE [facility] Aug 30, 2024 09:30 AM AMBULATORY - MEDICINE [facility] Aug 31, 2024 01:00 PM AMBULATORY - SURGERY [facility] Sep 21, 2024 01:30 PM AMBULATORY - MEDICINE [facility] Sep 22, 2024 11:00 AM AMBULATORY - MEDICINE [facility] Sep 29, 2024 12:30 PM AMBULATORY - MEDICINE [facility] Oct 02, 2024 09:30 AM AMBULATORY - MEDICINE [facility] Nov 20, 2024 10:30 AM AMBULATORY - SURGERY [facility] Nov 21, 2024 10:00 AM AMBULATORY - NONE [facility] Dec 11, 2024 10:30 AM AMBULATORY - [...] STAT SP [facility] Aug 02, 2024 12:00 AM Laboratory - Chemistry Order COMPREHENSIVE METABOLIC PANEL GREEN LI/HEP BLD/PLAS PLASMA SP [facility] Aug 17, 2024 03:47 PM Consult Order [facility] Cons Bedside [facility] Lab Results: +/- 30 days of [...] - Unit Interpretation Reference Range Comment Aug 19, 2024 04:23 PM [facility] GLUCOSE,BLOOD-poct (STL) Specimen Type: BLOOD Comment: Test Performed by: [id number] Meter #: [id number] Ordering Provider: SILVIA REDDY Report Released Date/Time: Aug 19, 2024 05:54 PM Reporting Lab: [facility] [address] Performing Lab: [facility] [address] GLUCOSE,BLOOD- poct (STL) 137 mg/dL H 72-99 Aug 19, 2024 11:28 AM [facility] GLUCOSE,BLOOD-poct (STL) Specimen Type: BLOOD Comment: Test Performed by: [id number] Meter #: [id number] Ordering Provider: SILVIA REDDY Report Released Date/Time: Aug 19, 2024 11:51 AM Reporting Lab: [facility] [address] Performing Lab: [facility] [address] GLUCOSE,BLOOD- poct (STL) 190 mg/dL H 72-99 Aug 19, 2024 05:21 AM [facility] GLUCOSE,BLOOD-poct (STL) Specimen Type: BLOOD Comment: Test Performed by: [id number] Meter #: [id number] Ordering Provider: SILVIA REDDY Report Released Date/Time: Aug 19, 2024 05:56 AM Reporting Lab: [facility] [address] Performing Lab: [facility] [address] GLUCOSE,BLOOD- poct (STL) 130 mg/dL H 72-Aug 18, 2024 04:49 PM [facility] GLUCOSE,BLOOD-poct (STL) Specimen Type: BLOOD Comment: Test Performed by: [id number] Meter #: [id number] Ordering Provider: SILVIA REDDY Report Released Date/Time: Aug 18, 2024 05:01 PM Reporting Lab: [facility] [address] Performing Lab: [facility] [address] GLUCOSE,BLOOD- poct (STL) 129 mg/dL H -Aug 18, 2024 11:23 AM [facility] GLUCOSE,BLOOD-poct (STL) Specimen Type: BLOOD Comment: Test Performed by: [id number] Meter #: [id number] Ordering Provider: SILVIA REDDY Report Released Date/Time: Aug 18, 2024 11:41 AM Reporting Lab: [facility] [address] Performing Lab: [facility] [address] GLUCOSE,BLOOD- poct (STL) 180 mg/dL H -Aug 18, 2024 05:08 AM [facility] GLUCOSE,BLOOD-poct (STL) Specimen Type: BLOOD Comment: Test Performed by: [id number] Meter #: [id number] Ordering Provider: SILVIA REDDY Report Released Date/Time: Aug 18, 2024 05:31 AM Reporting Lab: [facility] [address] Performing Lab: [facility] [address] GLUCOSE,BLOOD- poct (STL) 127 mg/dL H 72-Aug 17, 2024 07:32 PM [facility] GLUCOSE,BLOOD-poct (STL) Specimen Type: BLOOD Comment: Test Performed by: [id number] Meter #: [id number] Ordering Provider: SILVIA REDDY Report Released Date/Time: Aug 17, 2024 07:59 PM Reporting Lab: [facility] [address] Performing Lab: [facility] [address] GLUCOSE,BLOOD- poct (STL) 154 mg/dL H -Aug 17, 2024 04:24 PM [facility] GLUCOSE,BLOOD-poct (STL) Specimen Type: BLOOD Comment: Test Performed by: [id number] Meter #: [id number] Ordering Provider: SILVIA REDDY Report Released Date/Time: Aug 17, 2024 04:35 PM Reporting Lab: [facility] [address] Performing Lab: [facility] [address] GLUCOSE,BLOOD- poct (STL) 178 mg/dL H 72-Aug 17, 2024 05:09 AM [facility] GLUCOSE,BLOOD-poct (STL) Specimen Type: BLOOD Comment: Test Performed by: [id number] Meter #: [id number] Ordering Provider: SILVIA REDDY Report Released Date/Time: Aug 17, 2024 05:54 AM Reporting Lab: [facility] [place] [address] Performing Lab: [facility] [address] GLUCOSE,BLOOD- poct (STL) 124 mg/dL H Aug 16, 2024 07:40 PM [facility] GLUCOSE,BLOOD-poct (STL) Specimen Type: BLOOD Comment: Test Performed by: [id number] Meter #: [id number] Ordering Provider: SILVIA REDDY Report Released Date/Time: Aug 16, 2024 08:28 PM Reporting Lab: [facility] [address] Performing Lab: [facility] [address] GLUCOSE,BLOOD- poct (STL) 144 mg/dL H Aug 16, 2024 04:19 PM [facility] GLUCOSE,BLOOD-poct (STL) Specimen Type: BLOOD Comment: Test Performed by: [id number] Meter #: [id number] Ordering Provider: SILVIA REDDY Report Released Date/Time: Aug 16, 2024 04:45 PM Reporting Lab: [facility] [address] Performing Lab: [facility] [address] GLUCOSE,BLOOD- poct (STL) 138 mg/dL H Aug 16, 2024 11:52 AM [facility] GLUCOSE,BLOOD-poct (STL) Specimen Type: BLOOD Comment: Test Performed by: [id number] Meter #: [id number] Ordering Provider: SILVIA REDDY Report Released Date/Time: Aug 16, 2024 12:04 PM Reporting Lab: [facility] [address] Performing Lab: [facility] [address] GLUCOSE,BLOOD- poct (STL) 135 mg/dL H Aug 16, 2024 05:24 AM [facility] GLUCOSE,BLOOD-poct (STL) Specimen Type: BLOOD Comment: Test Performed by: [id number] Meter #: [id number] Ordering Provider: SILVIA REDDY Report Released Date/Time: Aug 16, 2024 05:38 AM Reporting Lab: [facility] [address] Performing Lab: [facility] [address] GLUCOSE,BLOOD- poct (STL) 151 mg/dL H -Aug 15, 2024 07:31 PM [facility] GLUCOSE,BLOOD-poct (STL) Specimen Type: BLOOD Comment: Test Performed by: [id number] Meter #: [id number] Ordering Provider: SILVIA REDDY Report Released Date/Time: Aug 15, 2024 08:07 PM Reporting Lab: [facility] [address] Performing Lab: [facility] [address] GLUCOSE,BLOOD- poct (STL) 173 mg/dL H -Aug 15, 2024 04:18 PM [facility] GLUCOSE,BLOOD-poct (STL) Specimen Type: BLOOD Comment: Test Performed by: [id number] Meter #: [id number] Ordering Provider: SILVIA REDDY Report Released Date/Time: Aug 15, 2024 04:59 PM Reporting Lab: [facility] [address] Performing Lab: [facility] [address] GLUCOSE,BLOOD- poct (STL) 136 mg/dL H -Aug 15, 2024 04:16 PM [facility] GLUCOSE,BLOOD-poct (STL) Specimen Type: BLOOD Comment: Test Performed by: [id number] Meter #: [id number] Ordering Provider: SILVIA REDDY Report Released Date/Time: Aug 15, 2024 04:59 PM Reporting Lab: [facility] [address] Performing Lab: [facility] [address] GLUCOSE,BLOOD- poct (STL) 194 mg/dL H 72-Aug 15, 2024 11:39 AM [facility] GLUCOSE,BLOOD-poct (STL) Specimen Type: BLOOD Comment: Test Performed by: [id number] Meter #: [id number] Ordering Provider: SILVIA REDDY Report Released Date/Time: Aug 15, 2024 12:00 PM Reporting Lab: [facility] [address] Performing Lab: [facility] [address] GLUCOSE,BLOOD- poct (STL) 127 mg/dL H -Aug 15, 2024 05:07 AM [facility] GLUCOSE,BLOOD-poct (STL) Specimen Type: BLOOD Comment: Test Performed by: [id number] Meter #: [id number] Ordering Provider: SILVIA REDDY Report Released Date/Time: Aug 15, 2024 06:14 AM Reporting Lab: [facility] [address] Performing Lab: [facility] [address] GLUCOSE,BLOOD- poct (STL) 151 mg/dL H 72-Aug 14, 2024 04:22 PM [facility] GLUCOSE,BLOOD-poct (STL) Specimen Type: BLOOD Comment: Test Performed by: [id number] Meter #: [id number] Ordering Provider: SILVIA REDDY Report Released Date/Time: Aug 14, 2024 04:52 PM Reporting Lab: [facility] [place] [address] Performing Lab: [facility] [address] GLUCOSE,BLOOD- poct (STL) 129 mg/dL H 72-99 Aug 14, 2024 11:21 AM [facility] GLUCOSE,BLOOD-poct (STL) Specimen Type: BLOOD Comment: Test Performed by: [id number] Meter #: [id number] Ordering Provider: SILVIA REDDY Report Released Date/Time: Aug 14, 2024 11:37 AM Reporting Lab: [facility] [address] Performing Lab: [facility] [address] GLUCOSE,BLOOD- poct (STL) 135 mg/dL H 72-99 Aug 14, 2024 06:59 AM [facility] QUANTIFERON-TB,4 TUBE Specimen Type: BLOOD Comment: normalcy [...] For additional information, please refer to http://education. [place] [employer]. [employer]/faq/WMC668 (This link is being provided for information/ educational purposes only.) Test Performed by [employer] [facility], [address] [place] [address] Tommie Garcia M.D., Ph.D., Director of Laboratories , [facility] [id number] Ordering Provider: SILVIA REDDY Report Released Date/Time: Aug 11, 2024 03:58 PM Reporting Lab: [facility] [address] [facility] [address] Performing Lab: [facility] [id number] [place] [address] .NIL - QUANTIFERON 0.04 [IU]/mL .MITOGEN-NIL 0.39 [IU]/mL .QUANTIFERON INDETERMINATE NEGATIVE .TB1-NIL <0.00 [IU]/mL .TB2-NIL <0.00 [IU]/mL Aug 14, 2024 06:59 AM [facility] MAGNESIUM Specimen Type: PLASMA Comment: No hemolysis noted. Ordering Provider: SILVIA REDDY Report Released Date/Time: Aug 11, 2024 03:58 PM Reporting Lab: [facility] [address] Performing Lab: [facility] [address] MAGNESIUM 1.9 mg/dL 1.6-2.6 Aug 14, 2024 06:59 AM [facility] B12 Specimen Type: SERUM No comment entered. Ordering Provider: SILVIA REDDY Report Released Date/Time: Aug 11, 2024 03:58 PM Reporting Lab: [facility] [address] Performing Lab: [facility] [address] B12 757 pg/mL 213-816 Aug 14, 2024 06:59 AM [facility] FOLATE (STL-MA) Specimen Type: SERUM No comment entered. Ordering Provider: SILVIA REDDY Report Released Date/Time: Aug 11, 2024 03:58 PM Reporting Lab: [facility] [address] Performing Lab: [facility] [address] FOLATE (STL-MA) 6.8 ng/mL L 7-20 Aug 14, 2024 06:59 AM [facility] VITAMIN D, 25-HYDROXY Specimen Type: SERUM No comment entered. Ordering Provider: SILVIA REDDY Report Released Date/Time: Aug 11, 2024 03:58 PM Reporting Lab: [facility] [place] [address] Performing Lab: [facility] [place] [address] VITAMIN D, 25-HYDROXY 8.9 ng/mL L 30-96 Aug 14, 2024 06:59 AM [facility] CBC Specimen Type: BLOOD No comment entered. Ordering Provider: SILVIA REDDY Report Released Date/Time: Aug 11, 2024 03:58 PM Reporting Lab: [facility] [address] [place] [address] Performing Lab: [facility] [place] [address] WBC 4.1 10*3/uL 3.6-11.2 RBC 3.20 10*6/uL [...] 10*3/uL 0.00-0.20 Aug 14, 2024 06:59 AM [facility] COMPREHENSIVE METABOLIC PANEL Specimen Type: PLASMA Comment: No hemolysis noted. Ordering Provider: SILVIA REDDY Report Released Date/Time: Aug 11, 2024 03:58 PM Reporting Lab: [facility] [place] [address] Performing Lab: [facility] [place] [address] CREATININE 0.75 mg/dL 0.70-1.30 UREA NITROGEN 13.6 [...] 95.88 >60 Aug 14, 2024 05:08 AM [facility] GLUCOSE,BLOOD-poct (STL) Specimen Type: BLOOD Comment: Test Performed by: [id number] Meter #: [id number] Ordering Provider: SILVIA REDDY Report Released Date/Time: Aug 14, 2024 05:52 AM Reporting Lab: [facility] [address] Performing Lab: [facility] [place] [address] GLUCOSE,BLOOD- poct (STL) 135 mg/dL H 72-99 Aug 13, 2024 04:27 PM [facility] GLUCOSE,BLOOD-poct (STL) Specimen Type: BLOOD Comment: Test Performed by: [id number] Meter #: [id number] Ordering Provider: SILVIA REDDY Report Released Date/Time: Aug 13, 2024 04:41 PM Reporting Lab: [facility] [place] [address] Performing Lab: [facility] [place] [address] GLUCOSE,BLOOD- poct (STL) 181 mg/dL H 72-Aug 13, 2024 11:33 AM [facility] GLUCOSE,BLOOD-poct (STL) Specimen Type: BLOOD Comment: Test Performed by: [id number] Meter #: [id number] Ordering Provider: SILVIA REDDY Report Released Date/Time: Aug 13, 2024 03:55 PM Reporting Lab: [facility] [place] [address] Performing Lab: [facility] [place] [address] GLUCOSE,BLOOD- poct (STL) 140 mg/dL H -Aug 13, 2024 05:54 AM [facility] GLUCOSE,BLOOD-poct (STL) Specimen Type: BLOOD Comment: Test Performed by: [id number] Meter #: [id number] Ordering Provider: SILVIA REDDY Report Released Date/Time: Aug 13, 2024 06:20 AM Reporting Lab: [facility] [place] [address] Performing Lab: [facility] [place] [address] GLUCOSE,BLOOD- poct (STL) 112 mg/dL H 72-Aug 12, 2024 04:35 PM [facility] GLUCOSE,BLOOD-poct (STL) Specimen Type: BLOOD Comment: Test Performed by: [id number] Meter #: [id number] Ordering Provider: SILVIA REDDY Report Released Date/Time: Aug 12, 2024 04:47 PM Reporting Lab: [facility] [address] Performing Lab: [facility] [address] GLUCOSE,BLOOD- poct (STL) 128 mg/dL H 72-99 Aug 12, 2024 11:26 AM [facility] GLUCOSE,BLOOD-poct (STL) Specimen Type: BLOOD Comment: Test Performed by: [id number] Meter #: [id number] Ordering Provider: SILVIA REDDY Report Released Date/Time: Aug 12, 2024 11:45 AM Reporting Lab: [facility] [address] Performing Lab: [facility] [address] GLUCOSE,BLOOD- poct (STL) 188 mg/dL H 72-99 Aug 12, 2024 06:13 AM [facility] GLUCOSE,BLOOD-poct (STL) Specimen Type: BLOOD Comment: Test Performed by: [id number] Meter #: [id number] Ordering Provider: SILVIA REDDY Report Released Date/Time: Aug 12, 2024 06:25 AM Reporting Lab: [facility] [address] Performing Lab: [facility] [address] GLUCOSE,BLOOD- poct (STL) 116 mg/dL H 72-99 Aug 11, 2024 04:10 PM [facility] GLUCOSE,BLOOD-poct (STL) Specimen Type: BLOOD Comment: Test Performed by: [id number] Meter #: [id number] Ordering Provider: SILVIA REDDY Report Released Date/Time: Aug 11, 2024 04:27 PM Reporting Lab: [facility] [address] Performing Lab: [facility] [address] GLUCOSE,BLOOD- poct (STL) 184 mg/dL H 72-99 Aug 11, 2024 01:44 PM [facility] MRSA SURVL NARES DNA Specimen Type: [...] Aug 11, 2024 02:03 PM Reporting Lab: [address] [address] Performing Lab: [address] [address] MRSA SURVL NARES DNA Negative Negative Jul 20, 2024 11:18 AM [facility] APTT Specimen Type: PLASMA No comment entered. Ordering Provider: MANUEL BAIRD Report Released Date/Time: Jul 19, 2024 04:00 PM Reporting Lab: [address] [address] Performing Lab: [address] [address] APTT 32.1 s 26.7-39.9 Jul 20, 2024 11:18 AM [facility] PT/INR NEW (STL-MA) Specimen Type: PLASMA No comment entered. Ordering Provider: MANUEL BAIRD Report Released Date/Time: Jul 19, 2024 04:00 PM Reporting Lab: [address] [address] Performing Lab: [address] [address] PROTIME 14.4 s H 9.4-12.5 INR VALUE 1.3 {INR} Jul 20, 2024 11:18 AM [facility] CBC Specimen Type: BLOOD No comment entered. Ordering Provider: MANUEL BAIRD Report Released Date/Time: Jul 19, 2024 04:00 PM Reporting Lab: [facility] [address] [facility] [address] Performing Lab: [address] [address] WBC 4.7 10*3/uL 3.6-11.2 RBC 4.86 10*6/uL [...] Jun 07, 2024 01:43 PM Reporting Lab: [facility] [address] [facility] [address] Performing Lab: [address] [address] CREATININE 0.85 mg/dL 0.7-1.3 UREA NITROGEN 15.2 [...] Facil ity March 16, 2024 09:30 AM [place]-TOBAC[place] FORMER USER [facility] Tobacco Use History This section includes a history of the smoking, or tobacco-related health factors, that were collected on or before the date of the Encounter. The data comes from the [place] facility where the Encounter took place. Date/Time Smoking Status/Tobacco Use Comment F acility March 16, 2024 09:30 AM [place]-TOBACCO QUIT 15 YRS OR MORE [facility] March 22, 2023 10:00 AM [place]-TOBACCO FORMER USER [facility] March 22, 2023 10:00 AM [place]-TOBACCO QUIT 15 YRS OR MORE [facility] Jan 29, 2022 03:00 PM [place]-TOBACCO FORMER USER [facility] Jan 29, 2022 03:00 PM VA-TOBACCO QUIT 15 YRS OR MORE [facility] Feb 07, 2019 04:17 PM VA-TOBACCO FORMER USER [facility] Feb 07, 2019 04:17 PM VA-TOBACCO QUIT 15 YRS OR MORE [facility] March 09, 2018 12:36 PM QUIT TOBACCO >7 YEARS AGO [facility] Aug 05, 2017 02:36 PM QUIT TOBACCO >7 YEARS AGO [facility] Advance Directives: All historical and current Section Date Range: From patient's date of to the date document was created. This section includes ALL of a patient's completed or amended [place] Advance and Rescinded Directives. The entries below indicate that a directive exists for the patient, but an actual copy is not included with this document. The data comes from all [facility]. Date Advance Directives Provider Source Jan 19, 2017 ADVANCE DIRECTIVE DISCUSSION ERICK BARDALES [facility] Encounter Notes: All associated encounter notes This section contains the clinical notes associated to the Encounter. Date/Time Encounter Note(s) Provider Source Jul 20, 2024 10:08 AM INTERNAL MEDICINE CLINICAL PHARMACIST MEDICATION MGT NOTE: LOCAL TITLE: CLINICAL PHARMACIST NOTE [facility] STANDARD TITLE: INTERNAL MEDICINE CLINICAL PHARMACIST MEDICATION DATE OF NOTE: JUL 20, 2024@10:08 ENTRY DATE: JUL 20, 2024@10:08:07 AUTHOR: REED COLLADO EXP COSIGNER: URGENCY: STATUS: COMPLETED CLINICAL PHARMACIST NOTE STL Has ADDENDA CLINICAL PHARMACY FOLLOW-UP Phone appt Subjective: CHET WALKER is a 74 MALE who was contacted by clinic pharmacy for follow up on DM. PMH: 1) Asthma (SNOMED CT 150971139) 2) Gastro-esophageal reflux disease (SNOMED CT 733212478) 3) Peptic Ulcer Disease * (ICD-9-CM 533.90) 4) Hypertension (SNOMED CT 44900362) 5) Neoplasm of pituitary gland (SNOMED CT 560986315) 6) Hyperlipidemia (SNOMED CT 35394572) 7) Erectile dysfunction associated with type 2 diabetes mellitus 8) Osteoarthritis of knee 9) Diabetes mellitus with neuropathy 10) Low back pain 11) Obesity 12) Patellofemoral syndrome of right knee 13) History of left total knee replacement 14) History of arthroplasty of right knee 15) Exposure to potentially hazardous substance 16) Fatty liver 17) Heart failure 18) Thrombocytopenia 19) Coronary artery disease During the last contact with vet, the following changes were made: During current visit: Cant sleep bc of trouble breathing. Surgery wednesday and sensor is off as of this AM, forget jennifer reader. Been having lots of highs, 300s, feel he is stressed . Dietary/Lifestyle/Social History modifications made: --diet is the same ROS: DM (+) hypoglycemia symptoms or values <80 mg/dL --a few in the last weeks, occurring during the day, maybe mid day and cant say why low, takes glucose tabs and eats uncustables (+) hyperglycemia symptoms --unclear why (-) tingling/numbness (-) UTI or fungal infection symptoms HLD (-) CP (-) muscle pain/cramps HTN (-) orthostasis (+) edema (-/+) cough (+) SOB (+) insomnia, due to SOB, told to take bumex daily and was able to sleep (+) weights, last 243, not daily Objective: Allergies: TRAMADOL Medications: Active and Recently [...] PAIN DO NOT ABRUPTLY DISCONTINUE MEDICATION. 10) INSULIN,ASPART(EQV-NOVLG)100UN/M L FLXPEN INJECT 6 ACTIVE UNITS UNDER THE SKIN BEFORE SUPPER FOR DIABETES ADMINISTER 10 MINUTES BEFORE FOOD DIRECTED. REFRIGERATE UN-OPENED PENS. DISCARD CARTRIDGE 28 DAYS AFTER OPENING. Taking 6 units before dinner 11) INSULIN,GLARG(TOUJEO MAX) 300 UNT/ML 3ML INJECT 90 ACTIVE UNITS UNDER THE SKIN ONCE A DAY FOR DIABETES ADMINISTER AT SAME TIME EACH DAY DIRECTED. DISCARD ANY OPEN CARTRIDGE AFTER 42 DAYS. *HIGH DOSE INSULIN* taking 90 units takes 72 pre surgery 12) MELOXICAM 7.5MG TAB TAKE ONE TABLET BY MOUTH ONCE A ACTIVE DAY NEEDED FOR OSTEOARTHRITIS holding 13) METFORMIN HCL 500MG 24HR SA TAB TAKE TWO TABLETS BY ACTIVE MOUTH TWICE A DAY FOR BLOOD SUGAR CONTROL. TAKE WITH FOOD. AVOID ALCOHOL. DISCONTINUE BEFORE GETTING XRAY DYE. stopped in error, thought he was supposed to stop 14) METHOCARBAMOL 500MG TAB TAKE 1 TABLET BY MOUTH TWICE ACTIVE DAILY NEEDED FOR MUSCLE SPASM not taking 15) MULTIVITAMIN CAP/TAB TAKE 1 TABLET BY MOUTH ONCE A ACTIVE DAY FOR NUTRITION/DIETARY SUPPLEMENTATION holding 16) OMEPRAZOLE 20MG EC CAP TAKE ONE CAPSULE BY MOUTH ACTIVE EVERY MORNING TO LOWER STOMACH ACID. TAKE 30 MINUTES PRIOR TO FOOD. 17) PREGABALIN 200MG ORAL CAP TAKE ONE CAPSULE BY MOUTH ACTIVE TWICE A DAY 18) SACUBITRIL 24MG/VALSARTAN 26MG TAB TAKE 1 TABLET BY ACTIVE MOUTH TWICE A DAY FOR HEART FAILURE 19) SEMAGLUTIDE 1MG/0.75ML INJ PEN 3ML INJECT 1MG UNDER ACTIVE THE SKIN EVERY WEEK FOR DIABETES Wednesday Active Non-VA Medications Status ========= 1) Non-VA NAPROXEN NA 220MG TAB 220MG BY MOUTH ACTIVE NEEDED holding meds: 1. ASPIRIN 81MG EC TAB SIG: TAKE ONE TABLET BY MOUTH ONCE A DAY TAKE WITH FOOD. OTC/Non-VA meds: as above Medication reconciliation completed: YES Adherence to above medications: yes but holding meds as directed Refills/renewals needed: Labs: CMP: SODIUM 141 mEq/L 07/17/2024 08:02 POTASSIUM 4.4 mEq/L 07/17/2024 08:02 CHLORIDE 107 mEq/L 07/17/2024 08:02 UREA NITROGEN 15.2 mg/dL 07/17/2024 08:02 CREATININE 0.85 mg/dL 07/17/2024 08:02 CALCIUM 9.2 mg/dL 07/17/2024 08:02 PROTEIN 7.3 g/dL 05/17/2024 10:20 ALBUMIN 4.0 g/dL 05/17/2024 10:20 ALKALINE PHOSPHATASE 93 U/L 05/17/2024 10:20 ALT/SGPT 36 U/L 05/17/2024 10:20 AST/SGOT 37 H U/L 05/17/2024 10:20 TOTAL BILIRUBIN 0.7 mg/dL 05/17/2024 10:20 CARBON DIOXIDE 26 mEq/L 07/17/2024 08:02 GLUCOSE 120 H mg/dL 07/17/2024 08:02 EGFR (CKD-EPI 2020) 92.3 07/17/2024 08:02 Estimated CrCl mL/min FLP: TRIGLYCERIDE 145 mg/dL 04/07/2024 11:40 CHOLESTEROL 180 mg/dL 04/07/2024 11:40 HDL(New) 34 L mg/dL 04/07/2024 11:40 CALCULATED LDL 117 mg/dL 04/07/2024 11:40 MICRAL/CR PROFILE: CREATuF: 163.4 (06/09/24 11:48) M/CREAT: 103 (06/09/24 11:48) MICRAL: 167.5 (06/09/24 11:48) A1c: HGA1C 7.0 H % 03/06/2024 09:52 NonVA A1c 7.5% TSH: TSH 3.510 uIU/mL 06/05/2024 09:00 Vitamin D: No VITAMIN D 25 HYDROXY EO data found Self-Monitoring of Blood Glucose (SMBG): none 152/76 60 BP last visit:122/55 (06/29/2024 12:58) Pulse last visit: 54 (06/29/2024 12:58) Assessment/Plan: 1) Diabetes Goal A1c <7-8%, FBG 80-130, post-prandial BG <180, per [facility]D guidelines --Controlled per recent A1c. No data to assess, some lows and some highs per pt reports, denies diet changes and thinks highs are due to stress. Lows cant say why either. Held metformin in error, rec reseat and hold as directed only the day of surgery. In the past had reports /o genital fungal infections. now denies, will consider starting post surgery (DM, CAD, CHF). --Continue/restart metformin SA 500mg 2 tabs BID , GFR >60 --Continue semaglutide 1mg once a week. --Continue Toujeo 300 units/ml 90 units daily --Continue aspart 6 units before dinner. --Instructed vet to check SMBGs using jennifer after surgery --Educated vet on hypoglycemia symptoms and appropriate [...] DM per VADoD guidelines. --Uncontrolled on check, recent changes per cardio, and pending CABG 07/24, Will not make changed at this time. CCT --Reviewed to limit salt, handouts given at last appt, encouraged nutrition f/u after procedure. --Rec daily AM weights. -Educated vet on risks/benefits of new medication, new labs. -Education provided on nonpharmacologic ways to improve DM/HLD/HTN (including lifestyle management/dietary/physical activity) specific for the vet's needs. -[place] verbalized understanding to all plans discussed today. Questions were answered to vet's satisfaction. --------- Time spent with vet: 30 minutes RTC: 3-4 week phone PBM PharmD Pharmacotherapy Rem V12: PHARMACIST INTERVENTIONS: HYPERTENSION Medication monitoring, no dosage change required, continue to monitor and assess LIPID MANAGEMENT Medication monitoring, no dosage change required, continue to monitor and assess TYPE 2 DIABETES MELLITUS Medication monitoring, no dosage change required, continue to monitor and assess Address adherence Medication reconciliation (changes to active VA and non-VA medication lists to reconcile differences) No changes to medication lists made (medication review completed, no discrepancies identified) /camryn COLLADO PHARM.D., [facility] CLINICAL PHARMACIST Signed: 07/20/2024 12:01 07/20/2024 ADDENDUM STATUS: COMPLETED Patient's Hemoglobin A1c from a non-VA lab. Date: July 14, 2024 Result 7.5 /camryn COLLADO PHARM.D., [facility] CLINICAL PHARMACIST Signed: 07/20/2024 14:31 REED COLLADO [facility]
--- OUTSIDE RECORDS SUMMARY | 2024-11-17 03:59 | XMS_ITS | Encounter Summary ---
Author Name [facility] [place] Organization [facility] [place] [facility] [place] Address [address] [place] [address] Care Team Providers Care Coke Wheeler Name Role Phone MANUEL BAIRD Primary Care [...] PART A Apr 08, 2017 PART A [id number] ASHLEY FINK PATIENT Selected Encounter This section includes the information on record at [place] for the Encounter. 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 NADEGE REDDY [facility] Aug 11, 2024 09:21 AM SECONDARY Fatty (change of) liver, not elsewhere classified NADEGE REDDY [facility] Aug 11, 2024 09:21 AM SECONDARY Heart failure, unspecified NADEGE REDDY [facility] Aug 11, 2024 09:21 AM SECONDARY Thrombocytopenia, unspecified NADEGE REDDY [facility] Aug 11, 2024 09:21 AM SECONDARY Type 2 diabetes w diabetic autonomic (poly)neuropathy NADEGE REDDY [facility] Plan of Treatment: Future Appointments (+ 6 months) and Future Tests (+/- 45 days) The Plan of Treatment section includes future care activities for the [facility] [place] [facility] This section includes future appointments [...] 24, 2024 10:00 AM AMBULATORY - MEDICINE [facility] Aug 24, 2024 10:30 AM AMBULATORY - MEDICINE [facility] Aug 30, 2024 09:30 AM AMBULATORY - MEDICINE [facility] Aug 31, 2024 01:00 PM AMBULATORY - SURGERY [facility] Sep 21, 2024 01:30 PM AMBULATORY - MEDICINE [facility] Sep 22, 2024 11:00 AM AMBULATORY - MEDICINE [facility] Sep 29, 2024 12:30 PM AMBULATORY - MEDICINE [facility] Oct 02, 2024 09:30 AM AMBULATORY - MEDICINE [facility] Nov 20, 2024 10:30 AM AMBULATORY - SURGERY [facility] Nov 21, 2024 10:00 AM AMBULATORY - NONE [facility] Dec 11, 2024 10:30 AM AMBULATORY - MEDICINE [facility] Active, Pending, and Scheduled Orders This [...] - Chemistry Order CBC BLOOD STAT SP [facility] Aug 02, 2024 12:00 AM Laboratory - Chemistry Order COMPREHENSIVE METABOLIC PANEL GREEN LI/HEP BLD/PLAS PLASMA SP [facility] Aug 17, 2024 03:47 PM Consult Order [facility] Cons Bedside [facility] Lab Results: +/- 30 days of [...] Range Comment Aug 23, 2024 08:21 AM [facility] MAGNESIUM Specimen Type: PLASMA No comment entered. Ordering Provider: SIMEON REDDY Report Released Date/Time: Aug 22, 2024 11:26 AM Reporting Lab: [facility] [facility] [address] Performing Lab: [facility] [address] MAGNESIUM 1.8 mg/dL 1.6-2.6 Aug 23, 2024 08:21 AM [facility] CBC Specimen Type: BLOOD No comment entered. Ordering Provider: SIMEON REDDY Report Released Date/Time: Aug 22, 2024 11:19 AM Reporting Lab: [facility] [address] Performing Lab: [facility] [address] WBC 4.0 10*3/uL 3.6-11.2 RBC 3.65 10*6/uL [...] 10*3/uL 0.00-0.20 Aug 23, 2024 05:12 AM [facility] GLUCOSE,BLOOD-poct (STL) Specimen Type: BLOOD Comment: Test Performed by: [id number] Meter #: [id number] Ordering Provider: SIMEON REDDY Report Released Date/Time: Aug 23, 2024 05:23 AM Reporting Lab: [facility] [address] Performing Lab: [facility] [address] GLUCOSE,BLOOD- poct (STL) 99 mg/dL 72-99 Aug 23, 2024 02:45 AM [facility] OCCULT BLOOD FIT X1 SCREEN Specimen Type: FECES No comment entered. Ordering Provider: SIMEON REDDY Report Released Date/Time: Aug 22, 2024 11:23 AM Reporting Lab: [facility] [address] [facility] [address] Performing Lab: [address] [address] OCCULT BLOOD (FIT) #1 OF 1 Negative Negative Aug 22, 2024 07:30 PM [facility] OCCULT BLOOD FIT X1 SCREEN Specimen Type: FECES No comment entered. Ordering Provider: SIMEON REDDY Report Released Date/Time: Aug 22, 2024 11:23 AM Reporting Lab: [address] [address] Performing Lab: [address] [address] OCCULT BLOOD (FIT) #1 OF 1 Negative Negative Aug 22, 2024 06:15 PM [facility] OCCULT BLOOD FIT X1 SCREEN Specimen Type: FECES No comment entered. Ordering Provider: SIMEON REDDY Report Released Date/Time: Aug 22, 2024 11:23 AM Reporting Lab: [address] [address] Performing Lab: [address] [address] OCCULT BLOOD (FIT) #1 OF 1 Negative Negative Aug 22, 2024 04:24 PM [facility] GLUCOSE,BLOOD-poct (STL) Specimen Type: BLOOD Comment: Test Performed by: [id number] Meter #: [id number] Ordering Provider: SIMEON REDDY Report Released Date/Time: Aug 22, 2024 04:36 PM Reporting Lab: [facility] [address] Performing Lab: [facility] [facility] [address] GLUCOSE,BLOOD- poct (STL) 176 mg/dL H 72-99 Aug 22, 2024 04:23 PM [facility] GLUCOSE,BLOOD-poct (STL) Specimen Type: BLOOD Comment: Test Performed by: [id number] Meter #: [id number] Ordering Provider: SIMEON REDDY Report Released Date/Time: Aug 22, 2024 04:36 PM Reporting Lab: [facility] [facility] [address] Performing Lab: [facility] [facility] [address] GLUCOSE,BLOOD- poct (STL) 221 mg/dL H 72-99 Aug 22, 2024 11:15 AM [facility] GLUCOSE,BLOOD-poct (STL) Specimen Type: BLOOD Comment: Test Performed by: [id number] Meter #: [id number] Ordering Provider: SIMEON REDDY Report Released Date/Time: Aug 22, 2024 11:27 AM Reporting Lab: [facility] [facility] [address] Performing Lab: [facility] [address] [facility] [address] GLUCOSE,BLOOD- poct (STL) 140 mg/dL H 72-99 Aug 22, 2024 08:03 AM [facility] FERRITIN Specimen Type: SERUM No comment entered. Ordering Provider: JUDIT PERKINS Report Released Date/Time: Aug 18, 2024 11:01 AM Reporting Lab: [facility] [address] [facility] [address] Performing Lab: [address] [address] FERRITIN 79.50 ng/mL 22-275 Aug 22, 2024 08:03 AM [facility] IRON/TIBC PROFILE Specimen Type: SERUM No comment entered. Ordering Provider: JUDIT PERKINS Report Released Date/Time: Aug 18, 2024 11:01 AM Reporting Lab: [address] [address] Performing Lab: [address] [address] TIBC 283 ug/dL 250-450 TRANSFERRIN 226 mg/dL 163-344 IRON SATURATION 7 L 20-50 IRON 19 ug/dL L 65-175 Aug 22, 2024 08:03 AM [facility] B12 Specimen Type: SERUM No comment entered. Ordering Provider: JUDIT PERKINS Report Released Date/Time: Aug 18, 2024 11:01 AM Reporting Lab: [facility] [facility] [address] Performing Lab: [facility] [facility] [address] B12 631 pg/mL 213-816 Aug 22, 2024 08:03 AM [facility] COMPREHENSIVE METABOLIC PANEL Specimen Type: PLASMA Comment: No hemolysis noted. Ordering Provider: SIMEON REDDY Report Released Date/Time: Aug 17, 2024 01:18 PM Reporting Lab: [facility] [address] [facility] [address] Performing Lab: [address] [address] CREATININE 0.80 mg/dL 0.7-1.3 UREA NITROGEN 9.7 [...] 94.0 >60 Aug 22, 2024 08:03 AM [facility] CBC Specimen Type: BLOOD No comment entered. Ordering Provider: SIMEON REDDY Report Released Date/Time: Aug 17, 2024 01:18 PM Reporting Lab: [facility] [facility] [address] Performing Lab: [facility] [facility] [address] WBC 3.5 10*3/uL L 3.6-11.2 RBC 3.23 [...] NRBC% 0 Aug 22, 2024 05:03 AM [facility] GLUCOSE,BLOOD-poct (STL) Specimen Type: BLOOD Comment: Test Performed by: [id number] Meter #: [id number] Ordering Provider: SIMEON REDDY Report Released Date/Time: Aug 22, 2024 06:17 AM Reporting Lab: [facility] [facility] [address] Performing Lab: [facility] [facility] [address] GLUCOSE,BLOOD- poct (STL) 170 mg/dL H 72-99 Aug 21, 2024 04:32 PM [facility] GLUCOSE,BLOOD-poct (STL) Specimen Type: BLOOD Comment: Test Performed by: [id number] Meter #: [id number] Ordering Provider: SIMEON REDDY Report Released Date/Time: Aug 21, 2024 04:49 PM Reporting Lab: [facility] [facility] [address] Performing Lab: [facility] [address] [place] [id number] GLUCOSE,BLOOD- poct (STL) 169 mg/dL H 72-Aug 21, 2024 11:53 AM [facility] GLUCOSE,BLOOD-poct (STL) Specimen Type: BLOOD Comment: Test Performed by: [id number] Meter #: [id number] Ordering Provider: SIMEON REDDY Report Released Date/Time: Aug 21, 2024 12:11 PM Reporting Lab: [facility] [address] [place] [address] Performing Lab: [facility] [address] [place] [address] GLUCOSE,BLOOD- poct (STL) 149 mg/dL H -Aug 21, 2024 05:10 AM [facility] GLUCOSE,BLOOD-poct (STL) Specimen Type: BLOOD Comment: Test Performed by: [id number] Meter #: [id number] Ordering Provider: SIMEON REDDY Report Released Date/Time: Aug 21, 2024 05:27 AM Reporting Lab: [facility] [facility] [address] Performing Lab: [facility] [address] [facility] [address] GLUCOSE,BLOOD- poct (STL) 118 mg/dL H -Aug 20, 2024 04:38 PM [facility] GLUCOSE,BLOOD-poct (STL) Specimen Type: BLOOD Comment: Test Performed by: [id number] Meter #: [id number] Ordering Provider: SIMEON REDDY Report Released Date/Time: Aug 21, 2024 01:55 AM Reporting Lab: [facility] [address] [place] [address] Performing Lab: [facility] [place] [address] GLUCOSE,BLOOD- poct (STL) 169 mg/dL H 72-Aug 20, 2024 04:36 PM [facility] GLUCOSE,BLOOD-poct (STL) Specimen Type: BLOOD Comment: Test Performed by: [id number] Meter #: [id number] Ordering Provider: SIMEON REDDY Report Released Date/Time: Aug 21, 2024 01:55 AM Reporting Lab: [facility] [facility] [address] Performing Lab: [facility] [address] [facility] [address] GLUCOSE,BLOOD- poct (STL) 395 mg/dL H -Aug 20, 2024 11:45 AM [facility] GLUCOSE,BLOOD-poct (STL) Specimen Type: BLOOD Comment: Test Performed by: [id number] Meter #: [id number] Ordering Provider: SIMEON REDDY Report Released Date/Time: Aug 20, 2024 11:56 AM Reporting Lab: [facility] [facility] [address] Performing Lab: [facility] [address] [facility] [address] GLUCOSE,BLOOD- poct (STL) 169 mg/dL H -Aug 20, 2024 05:06 AM [facility] GLUCOSE,BLOOD-poct (STL) Specimen Type: BLOOD Comment: Test Performed by: [id number] Meter #: [id number] Ordering Provider: SIMEON REDDY Report Released Date/Time: Aug 20, 2024 06:05 AM Reporting Lab: [facility] [facility] [address] Performing Lab: [facility] [facility] [address] GLUCOSE,BLOOD- poct (STL) 115 mg/dL H -Aug 19, 2024 04:23 PM [facility] GLUCOSE,BLOOD-poct (STL) Specimen Type: BLOOD Comment: Test Performed by: [id number] Meter #: [id number] Ordering Provider: SIMEON REDDY Report Released Date/Time: Aug 19, 2024 05:54 PM Reporting Lab: [facility] [facility] [address] Performing Lab: [facility] [address] GLUCOSE,BLOOD- poct (STL) 137 mg/dL H 72-Aug 19, 2024 11:28 AM [facility] GLUCOSE,BLOOD-poct (STL) Specimen Type: BLOOD Comment: Test Performed by: [id number] Meter #: [id number] Ordering Provider: SIMEON REDDY Report Released Date/Time: Aug 19, 2024 11:51 AM Reporting Lab: [facility] [address] Performing Lab: [facility] [address] GLUCOSE,BLOOD- poct (STL) 190 mg/dL H -Aug 19, 2024 05:21 AM [facility] GLUCOSE,BLOOD-poct (STL) Specimen Type: BLOOD Comment: Test Performed by: [id number] Meter #: [id number] Ordering Provider: SIMEON REDDY Report Released Date/Time: Aug 19, 2024 05:56 AM Reporting Lab: [facility] [facility] [address] Performing Lab: [facility] [facility] [address] GLUCOSE,BLOOD- poct (STL) 130 mg/dL H -Aug 18, 2024 04:49 PM [facility] GLUCOSE,BLOOD-poct (STL) Specimen Type: BLOOD Comment: Test Performed by: [id number] Meter #: [id number] Ordering Provider: SIMEON REDDY Report Released Date/Time: Aug 18, 2024 05:01 PM Reporting Lab: [facility] [facility] [address] Performing Lab: [facility] [facility] [address] GLUCOSE,BLOOD- poct (STL) 129 mg/dL H 72-Aug 18, 2024 11:23 AM [facility] GLUCOSE,BLOOD-poct (STL) Specimen Type: BLOOD Comment: Test Performed by: [id number] Meter #: [id number] Ordering Provider: SIMEON REDDY Report Released Date/Time: Aug 18, 2024 11:41 AM Reporting Lab: [facility] [facility] [address] Performing Lab: [facility] [place] [address] GLUCOSE,BLOOD- poct (STL) 180 mg/dL H Aug 18, 2024 05:08 AM [facility] GLUCOSE,BLOOD-poct (STL) Specimen Type: BLOOD Comment: Test Performed by: [id number] Meter #: [id number] Ordering Provider: SIMEON REDDY Report Released Date/Time: Aug 18, 2024 05:31 AM Reporting Lab: [facility] [facility] [address] Performing Lab: [facility] [facility] [address] GLUCOSE,BLOOD- poct (STL) 127 mg/dL H Aug 17, 2024 07:32 PM [facility] GLUCOSE,BLOOD-poct (STL) Specimen Type: BLOOD Comment: Test Performed by: [id number] Meter #: [id number] Ordering Provider: SIMEON REDDY Report Released Date/Time: Aug 17, 2024 07:59 PM Reporting Lab: [facility] [facility] [address] Performing Lab: [facility] [place] [address] GLUCOSE,BLOOD- poct (STL) 154 mg/dL H -Aug 17, 2024 04:24 PM [facility] GLUCOSE,BLOOD-poct (STL) Specimen Type: BLOOD Comment: Test Performed by: [id number] Meter #: [id number] Ordering Provider: SIMEON REDDY Report Released Date/Time: Aug 17, 2024 04:35 PM Reporting Lab: [facility] [facility] [address] Performing Lab: [facility] [facility] [address] GLUCOSE,BLOOD- poct (STL) 178 mg/dL H -Aug 17, 2024 05:09 AM [facility] GLUCOSE,BLOOD-poct (STL) Specimen Type: BLOOD Comment: Test Performed by: [id number] Meter #: [id number] Ordering Provider: SIMEON REDDY Report Released Date/Time: Aug 17, 2024 05:54 AM Reporting Lab: [facility] [facility] [address] Performing Lab: [facility] [address] GLUCOSE,BLOOD- poct (STL) 124 mg/dL H -Aug 16, 2024 07:40 PM [facility] GLUCOSE,BLOOD-poct (STL) Specimen Type: BLOOD Comment: Test Performed by: [id number] Meter #: [id number] Ordering Provider: SIMEON REDDY Report Released Date/Time: Aug 16, 2024 08:28 PM Reporting Lab: [facility] [facility] [address] Performing Lab: [facility] [address] GLUCOSE,BLOOD- poct (STL) 144 mg/dL H -Aug 16, 2024 04:19 PM [facility] GLUCOSE,BLOOD-poct (STL) Specimen Type: BLOOD Comment: Test Performed by: [id number] Meter #: [id number] Ordering Provider: SIMEON REDDY Report Released Date/Time: Aug 16, 2024 04:45 PM Reporting Lab: [facility] [facility] [address] Performing Lab: [facility] [address] GLUCOSE,BLOOD- poct (STL) 138 mg/dL H -Aug 16, 2024 11:52 AM [facility] GLUCOSE,BLOOD-poct (STL) Specimen Type: BLOOD Comment: Test Performed by: [id number] Meter #: [id number] Ordering Provider: SIMEON REDDY Report Released Date/Time: Aug 16, 2024 12:04 PM Reporting Lab: [facility] [address] Performing Lab: [facility] [address] GLUCOSE,BLOOD- poct (STL) 135 mg/dL H -Aug 16, 2024 05:24 AM [facility] GLUCOSE,BLOOD-poct (STL) Specimen Type: BLOOD Comment: Test Performed by: [id number] Meter #: [id number] Ordering Provider: SIMEON REDDY Report Released Date/Time: Aug 16, 2024 05:38 AM Reporting Lab: [facility] [address] Performing Lab: [facility] [facility] [address] GLUCOSE,BLOOD- poct (STL) 151 mg/dL H Aug 15, 2024 07:31 PM [facility] GLUCOSE,BLOOD-poct (STL) Specimen Type: BLOOD Comment: Test Performed by: [id number] Meter #: [id number] Ordering Provider: SIMEON REDDY Report Released Date/Time: Aug 15, 2024 08:07 PM Reporting Lab: [facility] [address] Performing Lab: [facility] [address] GLUCOSE,BLOOD- poct (STL) 173 mg/dL H Aug 15, 2024 04:18 PM [facility] GLUCOSE,BLOOD-poct (STL) Specimen Type: BLOOD Comment: Test Performed by: [id number] Meter #: [id number] Ordering Provider: SIMEON REDDY Report Released Date/Time: Aug 15, 2024 04:59 PM Reporting Lab: [facility] [address] Performing Lab: [facility] [place] [address] GLUCOSE,BLOOD- poct (STL) 136 mg/dL H Aug 15, 2024 04:16 PM [facility] GLUCOSE,BLOOD-poct (STL) Specimen Type: BLOOD Comment: Test Performed by: [id number] Meter #: [id number] Ordering Provider: SIMEON REDDY Report Released Date/Time: Aug 15, 2024 04:59 PM Reporting Lab: [facility] [address] Performing Lab: [facility] [address] GLUCOSE,BLOOD- poct (STL) 194 mg/dL H Aug 15, 2024 11:39 AM [facility] GLUCOSE,BLOOD-poct (STL) Specimen Type: BLOOD Comment: Test Performed by: [id number] Meter #: [id number] Ordering Provider: SIMEON REDDY Report Released Date/Time: Aug 15, 2024 12:00 PM Reporting Lab: [facility] [place] [address] Performing Lab: [facility] [place] [address] GLUCOSE,BLOOD- poct (STL) 127 mg/dL H 72-Aug 15, 2024 05:07 AM [facility] GLUCOSE,BLOOD-poct (STL) Specimen Type: BLOOD Comment: Test Performed by: [id number] Meter #: [id number] Ordering Provider: SIMEON REDDY Report Released Date/Time: Aug 15, 2024 06:14 AM Reporting Lab: [facility] [address] Performing Lab: [facility] [address] GLUCOSE,BLOOD- poct (STL) 151 mg/dL H -Aug 14, 2024 04:22 PM [facility] GLUCOSE,BLOOD-poct (STL) Specimen Type: BLOOD Comment: Test Performed by: [id number] Meter #: [id number] Ordering Provider: SIMEON REDDY Report Released Date/Time: Aug 14, 2024 04:52 PM Reporting Lab: [facility] [address] Performing Lab: [facility] [facility] [address] GLUCOSE,BLOOD- poct (STL) 129 mg/dL H -Aug 14, 2024 11:21 AM [facility] GLUCOSE,BLOOD-poct (STL) Specimen Type: BLOOD Comment: Test Performed by: [id number] Meter #: [id number] Ordering Provider: SIMEON REDDY Report Released Date/Time: Aug 14, 2024 11:37 AM Reporting Lab: [facility] [address] Performing Lab: [facility] [facility] [address] GLUCOSE,BLOOD- poct (STL) 135 mg/dL H 72-Aug 14, 2024 06:59 AM [facility] QUANTIFERON-TB,4 TUBE Specimen Type: BLOOD Comment: normalcy [...] tube is coated with the M. tuberculosis-spec ifi antigens designed to elicit responses from TB antigen primed CD4+ helper T-lymphocytes. The TB2 Antigen tube is coated with the M. tuberculosis-spec ific antigens designed to elicit responses from TB antigen primed CD4+ helper and CD8+ cytotoxic T-lymphocytes. For additional information, please refer to http://education. [employer]/faq/JTM852 (This link is being provided for information/ educational purposes only.) Test Performed by [facility] [facility] [facility], [address] [place] [address] Tommie Garcia M.D., Ph.D., Director of Laboratories , [facility] [id number] Ordering Provider: SIMEON REDDY Report Released Date/Time: Aug 11, 2024 03:58 PM Reporting Lab: [facility] [address] [place] [address] Performing Lab: [facility] [address] [place] [address] .NIL - QUANTIFERON 0.04 [IU]/mL .MITOGEN-NIL 0.39 [IU]/mL .QUANTIFERON INDETERMINATE NEGATIVE .TB1-NIL <0.00 [IU]/mL .TB2-NIL <0.00 [IU]/mL Aug 14, 2024 06:59 AM [facility] MAGNESIUM Specimen Type: PLASMA Comment: No hemolysis noted. Ordering Provider: SIMEON REDDY Report Released Date/Time: Aug 11, 2024 03:58 PM Reporting Lab: [facility] [address] Performing Lab: [facility] [address] MAGNESIUM 1.9 mg/dL 1.6-2.6 Aug 14, 2024 06:59 AM [facility] ([facility]) Specimen Type: SERUM No comment entered. Ordering Provider: SIMEON REDDY Report Released Date/Time: Aug 11, 2024 03:58 PM Reporting Lab: [facility] [address] Performing Lab: [facility] [address] [facility]OLATE ([facility]) 6.8 ng/mL L 7-20 Aug 14, 2024 06:59 AM [facility] B12 Specimen Type: SERUM No comment entered. Ordering Provider: SIMEON REDDY Report Released Date/Time: Aug 11, 2024 03:58 PM Reporting Lab: [facility] [address] Performing Lab: [facility] [address] B12 757 pg/mL 213-816 Aug 14, 2024 06:59 AM [facility] VITAMIN D, 25-HYDROXY Specimen Type: SERUM No comment entered. Ordering Provider: SIMEON REDDY Report Released Date/Time: Aug 11, 2024 03:58 PM Reporting Lab: [facility] [phone] Performing Lab: [facility] [address] VITAMIN D, 25-HYDROXY 8.9 ng/mL L 30-96 Aug 14, 2024 06:59 AM [facility] COMPREHENSIVE METABOLIC PANEL Specimen Type: PLASMA Comment: No hemolysis noted. Ordering Provider: SIMEON REDDY Report Released Date/Time: Aug 11, 2024 03:58 PM Reporting Lab: [facility] [address] Performing Lab: [facility] [place] [phone] CREATININE 0.75 mg/dL 0.70-1.30 UREA NITROGEN 13.6 [...] >60 Aug 14, 2024 06:59 AM [facility] CBC Specimen Type: BLOOD No comment entered. Ordering Provider: SIMEON REDDY Report Released Date/Time: Aug 11, 2024 03:58 PM Reporting Lab: [facility] [place] [phone] Performing Lab: [facility] [place] [phone] WBC 4.1 10*3/uL 3.6-11.2 RBC 3.20 10*6/uL [...] 10*3/uL 0.00-0.20 Aug 14, 2024 05:08 AM [facility] GLUCOSE,BLOOD-poct (STL) Specimen Type: BLOOD Comment: Test Performed by: [id number] Meter #: [id number] Ordering Provider: SIMEON REDDY Report Released Date/Time: Aug 14, 2024 05:52 AM Reporting Lab: [facility] [place] [address] Performing Lab: [facility] [place] [address] GLUCOSE,BLOOD- poct (STL) 135 mg/dL H -Aug 13, 2024 04:27 PM [facility] GLUCOSE,BLOOD-poct (STL) Specimen Type: BLOOD Comment: Test Performed by: [id number] Meter #: [id number] Ordering Provider: SIMEON REDDY Report Released Date/Time: Aug 13, 2024 04:41 PM Reporting Lab: [facility] [place] [address] Performing Lab: [facility] [place] [address] GLUCOSE,BLOOD- poct (STL) 181 mg/dL H -Aug 13, 2024 11:33 AM [facility] GLUCOSE,BLOOD-poct (STL) Specimen Type: BLOOD Comment: Test Performed by: [id number] Meter #: [id number] Ordering Provider: SIMEON REDDY Report Released Date/Time: Aug 13, 2024 03:55 PM Reporting Lab: [facility] [place] [address] Performing Lab: [facility] [facility] [address] GLUCOSE,BLOOD- poct (STL) 140 mg/dL H Aug 13, 2024 05:54 AM [facility] GLUCOSE,BLOOD-poct (STL) Specimen Type: BLOOD Comment: Test Performed by: [id number] Meter #: [id number] Ordering Provider: SIMEON REDDY Report Released Date/Time: Aug 13, 2024 06:20 AM Reporting Lab: [facility] [facility] [address] Performing Lab: [facility] [address] GLUCOSE,BLOOD- poct (STL) 112 mg/dL H Aug 12, 2024 04:35 PM [facility] GLUCOSE,BLOOD-poct (STL) Specimen Type: BLOOD Comment: Test Performed by: [id number] Meter #: [id number] Ordering Provider: SIMEON REDDY Report Released Date/Time: Aug 12, 2024 04:47 PM Reporting Lab: [facility] [facility] [address] Performing Lab: [facility] [address] [facility] [address] GLUCOSE,BLOOD- poct (STL) 128 mg/dL H Aug 12, 2024 11:26 AM [facility] GLUCOSE,BLOOD-poct (STL) Specimen Type: BLOOD Comment: Test Performed by: [id number] Meter #: [id number] Ordering Provider: SIMEON REDDY Report Released Date/Time: Aug 12, 2024 11:45 AM Reporting Lab: [facility] [address] [facility] [address] Performing Lab: [facility] [address] [facility] [address] GLUCOSE,BLOOD- poct (STL) 188 mg/dL H Aug 12, 2024 06:13 AM [facility] GLUCOSE,BLOOD-poct (STL) Specimen Type: BLOOD Comment: Test Performed by: [id number] Meter #: [id number] Ordering Provider: SIMEON REDDY Report Released Date/Time: Aug 12, 2024 06:25 AM Reporting Lab: [facility] [address] [facility] [address] Performing Lab: [facility] [address] [facility] [address] GLUCOSE,BLOOD- poct (STL) 116 mg/dL H Aug 11, 2024 04:10 PM [facility] GLUCOSE,BLOOD-poct (STL) Specimen Type: BLOOD Comment: Test Performed by: [id number] Meter #: [id number] Ordering Provider: SIMEON REDDY Report Released Date/Time: Aug 11, 2024 04:27 PM Reporting Lab: [facility] [address] [facility] [address] Performing Lab: [facility] [address] [facility] [address] GLUCOSE,BLOOD- poct (STL) 184 mg/dL H Aug 11, 2024 01:44 PM [facility] MRSA SURVL NARES DNA Specimen Type: NARES [...] epidemiological information for final interpretation. Ordering Provider: SIMEON REDDY Report Released Date/Time: Aug 11, 2024 02:03 PM Reporting Lab: [address] [address] Performing Lab: [address] [place] [address] MRSA SURVL NARES DNA Negative Negative Jul 20, 2024 11:18 AM [facility] APTT Specimen Type: PLASMA No comment entered. Ordering Provider: MANUEL BAIRD Report Released Date/Time: Jul 19, 2024 04:00 PM Reporting Lab: [address] [address] Performing Lab: [address] [address] APTT 32.1 s 26.7-39.9 Jul 20, 2024 11:18 AM [facility] PT/INR [facility] Specimen Type: PLASMA No comment entered. Ordering Provider: MANUEL BAIRD Report Released Date/Time: Jul 19, 2024 04:00 PM Reporting Lab: [address] [address] Performing Lab: [address] [address] PROTIME 14.4 s H 9.4-12.5 INR VALUE 1.3 {INR} Jul 20, 2024 11:18 AM [facility] CBC Specimen Type: BLOOD No comment entered. Ordering Provider: MANUEL BAIRD Report Released Date/Time: Jul 19, 2024 04:00 PM Reporting Lab: [address] [address] Performing Lab: [address] [address] WBC 4.7 10*3/uL 3.6-11.2 RBC 4.86 10*6/uL [...] 1.6 1.0-7.0 Jul 17, 2024 08:02 AM [facility] BASIC METABOLIC PANEL Specimen Type: PLASMA Comment: No hemolysis noted. Ordering Provider: MARY SERNA Report Released Date/Time: Jun 07, 2024 01:43 PM Reporting Lab: [address] [address] Performing Lab: [address] [address] CREATININE 0.85 mg/dL 0.7-1.3 UREA NITROGEN 15.2 mg/dL 9.0-25.0 GLUCOSE 120 mg/dL H 72-99 SODIUM 141 meq/L 136-145 POTASSIUM 4.4 meq/L 3.5-5 CHLORIDE 107 meq/L 98-107 CARBON DIOXIDE 26 meq/L 22-31 CALCIUM 9.2 mg/dL 8.4-10.4 EGFR (CKD-EPI 2020) 92.3 >60 Vital Signs: All taken on the encounter date This section contains inpatient and outpatient Vital Signs collected on the date of the Encounter. Date/Time Temperature Pulse Blood Pressure Respiratory Rate SP02 Pain Height Weight Body Mass Index Source Aug 11, 2024 08:19 PM 98.1 74 139/77 18 96 [facility] Aug 11, 2024 08:15 PM 0 [facility] Aug 11, 2024 02:26 PM 211.1 30 [facility] Aug 11, 2024 02:22 PM 97.6 124/77 18 [facility] Advance Directives: All historical and current Section [...] Source Jan 19, 2017 ADVANCE DIRECTIVE DISCUSSION CATIAERICK Santos [facility] Encounter Notes: All associated encounter notes This section contains the clinical notes associated to the Encounter. Date/Time Encounter Note(s) Provider Source Aug 11, 2024 10:48 AM ADDENDUM: LOCAL TITLE: Addendum STANDARD TITLE: ADDENDUM DATE OF NOTE: AUG 11, 2024@10:48:35 ENTRY DATE: AUG 11, 2024@10:48:36 AUTHOR: SIMEON REDDY EXP COSIGNER: URGENCY: STATUS: COMPLETED Updated notes reviewed Hg now trending up 8.5 and plt count 207. Vetern was having low glucose so holding lantus at OSH and using SSI. Per notes vet did not tolerate entresto. Behaviors controlled and continues to wean seroquel at 25mg as of yesterday 08/10. /shen/ Simeon Reddy APN,DAMIAN- Advanced Practice Nurse Signed: 08/11/2024 10:53 Receipt Acknowledged By: 08/11/2024 11:28 /shen/ JUDIT PERKINS PHYSICIAN CHHAYA --- Original Document --- 08/11/24 [facility] NOTE [facility]: Chart review 39 + 40 pages from [facility] for admission to [facility]. HPI: Mr Fink is a 74 y.o. yo male w/ PMHx of HTN, HLD, CAD, moderate MR, 2nd degree av block, asthma, JACQUELINE, pHTN, hepatic steatosis, GERD, hiatal hernia, DM Type II (Hgb A1c7.5), hx of pituitary adenoma, and obesity. Patient with worsening shortness of breath and functional status. Cardiac cath performed 06/19/24 showed multivessel CAD (LAD 70-90%, proximal LCX 75-90%, proximal OM1 70-90%, RCA subtotal occlusion. He was referred to [facility] for surgical management. On 07/24, s/p CABG x 3 08/04 INSERT/REPLACE IMPLANTABLE CARDIOVERTER- DEFIBRILLATOR (lCD) DUAL CHAMBER SYSTEM 25876 07/31: TELEPHONER eval regular texture and thin liquids, order mechanical soft d/t edentulous status. XXXXXXXXXXXXXXXXXXXXXXXXXXX XXXXXXXXXXXXXXXXXXXXXXXXXXX XXXXXXXXXXXXXXXXXXXXXXXXPr ecautions: cardiac sternal; pacemaker; fall XXXXXXXXXXXXXXXXXXXXXXXXXXX XXXXXXXXXXXXXXXXXXXXXXXXXXX XXXXXXXXXXXXXXXXXXXXXXXX Vitals: 08/08/24 1035 103/54 69 98% Comments: Sternal incision well approximated with prineo dressing intact Former chest tube sites open to air, well healing L chest PPM site well approximated with steri strips L arm incision well approximated, no redness or drainage R leg SVG site w/ wound glue Neurological: General: No focal deficit present. Mental Status: He is alert and oriented to person, place, and time. XXXXXXXXXXXXXXXXXXXXXXXXXXX XXXXXXXXXXXXXXXXXXXXXXXXXXX XXXXXXXXXXXXXXXXXXXXXXXX ASSESSMENT/PLAN DM2 (diabetes mellitus, type 2) ([facility]) - Home regimen: Lantus 90 units - 07/14 A1C 7.5 - Lantus 35 units + SSI Complete heart block (CMS/HCC) ([facility]) Assessment & Plan EP consulted S/P PPM placed on 08/04 Wires out Continue telemetry montioring Bradycardia S/P PPM placed on 08/04 Wires out Continue telemetry montioring Coronary artery disease due to calcified coronary lesion S/p CABG x3 with sternal plating PT/OT- recs for rehab - Aspirin, statin, plavix daily - Imdur daily - Resumed home coreg dose - Will resume home Entresto as tolerated Aggressive Pulmonary toilet Wires and tubes out Seroquel started in ICU, weaning dose today #Acute Blood Loss Anemia, secondary to procedure - intraoperatively received: 1 unit pRBC, 1 unit PLT, 1 unit FFP - trend CBC daily - DVT ppx: SCD, hold DVT # Asthma #Sleep apnea (JACQUELINE) Prescribed device: PAP compliant and CPAP. #Pulmonary hypertension Echo PA systolic: 41. RV function: mild systolic dysfunction. # COPD; no 02 use outside the hospital; (former smoker) and no tracheostomy #Liver disease (liver steatosis) # History of thrombocytopenia (07/20 pIt 87 XXXXXXXXXXXXXXXXXXXXXXXXXXX XXXXXXXXXXXXXXXXXXXXXXXXXXX XXXXXXXXXXXXXXXXXXXXXXXX An[facility]9 as of [facility]/24 and before that 14.2 in 07/01. Vet noted to have 7.9 Hg on 08/07. Request f/u cbc and last provider note before accepting. /shen/ Simeon Reddy APN,DAMIAN- Advanced Practice Nurse Signed: 08/11/2024 09:22 Receipt Acknowledged By: * AWAITING SIGNATURE * PETAR RAINES * AWAITING SIGNATURE * JUDIT PERKINS * AWAITING SIGNATURE * JONAS RAMSAY RAMONDA J [facility] Aug 11, 2024 08:43 AM ORGANIC EXTRACTIONS TECHNICIAN CARE NOT E: [facility] TITLE: [facility] NOTE [facility] STANDARD TITLE: CARE HOME CARE NOTE DATE OF NOTE: AUG 11, 2024@08:43 ENTRY DATE: AUG 11, 2024@08:43:17 AUTHOR: SIMEON REDDY EXP COSIGNER: URGENCY: STATUS: COMPLETED [facility] NOTE ST Has ADDENDA Chart review 39 + 40 pages from [facility] for admission to [facility]. HPI: Mr Fink is a 74 y.o. yo male w/ PMHx of HTN, HLD, CAD, moderate MR, 2nd degree av block, asthma, JACQUELINE, pHTN, hepatic steatosis, GERD, hiatal hernia, DM Type II (Hgb A1c7.5), hx of pituitary adenoma, and obesity. Patient with worsening shortness of breath and functional status. Cardiac cath performed 06/19/24 showed multivessel CAD (LAD 70-90%, proximal LCX 75-90%, proximal OM1 70-90%, RCA subtotal occlusion. He was referred to [facility] for surgical management. On 07/24, s/p CABG x 3 08/04 INSERT/REPLACE IMPLANTABLE CARDIOVERTER- DEFIBRILLATOR (lCD) DUAL CHAMBER SYSTEM [id number] 07/31: TELEPHONER eval regular texture and thin liquids, order mechanical soft d/t edentulous status. XXXXXXXXXXXXXXXXXXXXXXXXXXX XXXXXXXXXXXXXXXXXXXXXXXXXXX XXXXXXXXXXXXXXXXXXXXXXXXPr ecautions: cardiac sternal; pacemaker; fall XXXXXXXXXXXXXXXXXXXXXXXXXXX XXXXXXXXXXXXXXXXXXXXXXXXXXX XXXXXXXXXXXXXXXXXXXXXXXX Vitals: 08/08/24 1035 103/54 69 98% Comments: Sternal incision well approximated with prineo dressing intact Former chest tube sites open to air, well healing L chest PPM site well approximated with steri strips L arm incision well approximated, no redness or drainage R leg SVG site w/ wound glue Neurological: General: No focal deficit present. Mental Status: He is alert and oriented to person, place, and time. XXXXXXXXXXXXXXXXXXXXXXXXXXX XXXXXXXXXXXXXXXXXXXXXXXXXXX XXXXXXXXXXXXXXXXXXXXXXXX ASSESSMENT/PLAN DM2 (diabetes mellitus, type 2) ([facility]) - Home regimen: Lantus 90 units - 07/14 A1C 7.5 - Lantus 35 units + SSI Complete heart block (CMS/HCC) ([facility]) Assessment & Plan EP consulted S/P PPM placed on 08/04 Wires out Continue telemetry montioring Bradycardia S/P PPM placed on 08/04 Wires out Continue telemetry montioring Coronary artery disease due to calcified coronary lesion S/p CABG x3 with sternal plating PT/OT- recs for rehab - Aspirin, statin, plavix daily - Imdur daily - Resumed home coreg dose - Will resume home Entresto as tolerated Aggressive Pulmonary toilet Wires and tubes out Seroquel started in ICU, weaning dose today #Acute Blood Loss Anemia, secondary to procedure - intraoperatively received: 1 unit pRBC, 1 unit PLT, 1 unit FFP - trend CBC daily - DVT ppx: SCD, hold DVT # Asthma #Sleep apnea (JACQUELINE) Prescribed device: PAP compliant and CPAP. #Pulmonary hypertension Echo PA systolic: 41. RV function: mild systolic dysfunction. # COPD; no 02 use outside the hospital; (former smoker) and no tracheostomy #Liver disease (liver steatosis) # History of thrombocytopenia (07/20 pIt 87 XXXXXXXXXXXXXXXXXXXXXXXXXXX XXXXXXXXXXXXXXXXXXXXXXXXXXX XXXXXXXXXXXXXXXXXXXXXXXX Anemia at [facility]. [facility] 12[facility]9 as of 07/20/24 and before that 14.2 in 07/01. Vet noted to have 7.9 Hg on 08/07. Request f/u cbc and last provider note before accepting. /shen/ Simeon Reddy APN,[facility] Advanced Practice Nurse Signed: 08/11/2024 09:22 Receipt Acknowledged By: * AWAITING SIGNATURE * PETAR RAINES 08/11/2024 11:47 /shen/ JUDIT PERKINS PHYSICIAN CHHAYA * AWAITING SIGNATURE * JONAS RAMSAY 08/11/2024 ADDENDUM STATUS: COMPLETED Updated notes reviewed Hg now trending up 8.5 and plt count 207. Vetern was having low glucose so holding lantus at OSH and using SSI. Per notes vet did not tolerate entresto. Behaviors controlled and continues to wean seroquel at 25mg as of yesterday 08/10. /shen/ Simeon Reddy APN,[facility] Advanced Practice Nurse Signed: 08/11/2024 10:53 Receipt Acknowledged By: 08/11/2024 11:28 /shen/ JUDIT PERKINS PHYSICIAN SIMEON WAGN [facility]
--- OUTSIDE RECORDS SUMMARY | 2024-11-17 03:59 | XMS_ITS ---
Author Name [facility] [place] Organization [facility] [place] [facility] [place] Address [address] [place] [address] Care Team Providers Care Practicing Dermatologist Name Role Phone MANUEL BAIRD Primary Care [...] PART A Apr 08, 2017 PART A [id number] [phone] ASHLEY WALKER PATIENT Selected Encounter This section includes the information on record at [place] for the Encounter. Date/Time Encounter Type Encounter Description Reason Provider Source Aug 11, 2024 10:39 AM Outpatient Encounter GENERAL INTERNAL MEDICINE PETAR RAINES Encounter Template Text not used by [place] Plan of Treatment: Future Appointments (+ 6 [...] 20 appointments. The data comes from all [facility]. Appointment Date/Time Appointment Type Appointme nt Facility Name Aug 24, 2024 10:00 AM AMBULATORY - MEDICINE [facility] Aug 24, 2024 10:30 AM AMBULATORY - MEDICINE [facility] Aug 30, 2024 09:30 AM AMBULATORY MEDICINE [facility] Aug 31, 2024 01:00 PM AMBULATORY - SURGERY [facility] Sep 21, 2024 01:30 PM AMBULATORY - MEDICINE [facility] Sep 22, 2024 11:00 AM AMBULATORY - MEDICINE [facility] Sep 29, 2024 12:30 PM AMBULATORY - MEDICINE [facility] Oct 02, 2024 09:30 AM AMBULATORY - MEDICINE [facility] Nov 20, 2024 10:30 AM AMBULATORY - SURGERY [facility] Nov 21, 2024 10:00 AM AMBULATORY - NONE [facility] Dec 11, 2024 10:30 AM AMBULATORY - MEDICINE [facility] Active, Pending, and Scheduled Orders This section includes a listing of several types of active, pending, and scheduled orders, including clinic medications orders, diagnostic test orders, procedure orders and consult orders; where the start date of the order is 45 days before the date of the Encounter or 45 days after the date of theEncounter. The data comes from all [facility]. Test Date/Time Test Type Test Details Facility Name Aug 02, 2024 12:00 AM Laboratory - Chemistry Order CBC BLOOD STAT SP [facility] Aug 02, 2024 12:00 AM Laboratory - Chemistry Order COMPREHENSIVE METABOLIC PANEL GREEN LI/HEP BLD/PLAS PLASMA SP [facility] Aug 17, 2024 03:47 PM Consult Order [facility] Cons Bedside [facility] Lab Results: +/- 30 days of [...] Range Comment Aug 23, 2024 08:21 AM [facility] MAGNESIUM Specimen Type: PLASMA No comment entered. Ordering Provider: SILVIA REDDY Report Released Date/Time: Aug 22, 2024 11:26 AM Reporting Lab: [facility] [address] Performing Lab: [facility] [address] MAGNESIUM 1.8 mg/dL 1.6-2.6 Aug 23, 2024 08:21 AM [facility] CBC Specimen Type: BLOOD No comment entered. Ordering Provider: SILVIA REDDY Report Released Date/Time: Aug 22, 2024 11:19 AM Reporting Lab: [facility] [address] Performing Lab: [facility] [address] WBC 4.0 10*3/uL 3.6-11.2 RBC 3.65 10*6/uL [...] 10*3/uL 0.00-0.20 Aug 23, 2024 05:12 AM [facility] GLUCOSE,BLOOD-poct (STL) Specimen Type: BLOOD Comment: Test Performed by: [id number] Meter #: [id number] Ordering Provider: SILVIA REDDY Report Released Date/Time: Aug 23, 2024 05:23 AM Reporting Lab: [facility] [address] Performing Lab: [facility] [address] GLUCOSE,BLOOD- poct (STL) 99 mg/dL 72-99 Aug 23, 2024 02:45 AM [facility] OCCULT BLOOD FIT X1 SCREEN Specimen Type: FECES No comment entered. Ordering Provider: SILVIA REDDY Report Released Date/Time: Aug 22, 2024 11:23 AM Reporting Lab: [address] [address] Performing Lab: [address] [address] OCCULT BLOOD (FIT) #1 OF 1 Negative Negative Aug 22, 2024 07:30 PM [facility] OCCULT BLOOD FIT X1 SCREEN Specimen Type: FECES No comment entered. Ordering Provider: SILVIA REDDY Report Released Date/Time: Aug 22, 2024 11:23 AM Reporting Lab: [address] [address] Performing Lab: [address] [address] OCCULT BLOOD (FIT) #1 OF 1 Negative Negative Aug 22, 2024 06:15 PM [facility] OCCULT BLOOD FIT X1 SCREEN Specimen Type: FECES No comment entered. Ordering Provider: SILVIA REDDY Report Released Date/Time: Aug 22, 2024 11:23 AM Reporting Lab: [address] [address] Performing Lab: [place] [address] [place] [address] OCCULT BLOOD (FIT) #1 OF 1 Negative Negative Aug 22, 2024 04:24 PM [facility] GLUCOSE,BLOOD-poct (STL) Specimen Type: BLOOD Comment: Test Performed by: [id number] Meter #: [id number] Ordering Provider: SILVIA REDDY Report Released Date/Time: Aug 22, 2024 04:36 PM Reporting Lab: [facility] [address] Performing Lab: [facility] [address] GLUCOSE,BLOOD- poct (STL) 176 mg/dL H -Aug 22, 2024 04:23 PM [facility] GLUCOSE,BLOOD-poct (STL) Specimen Type: BLOOD Comment: Test Performed by: [id number] Meter #: [id number] Ordering Provider: SILVIA REDDY Report Released Date/Time: Aug 22, 2024 04:36 PM Reporting Lab: [facility] [address] Performing Lab: [facility] [address] GLUCOSE,BLOOD- poct (STL) 221 mg/dL H 72-Aug 22, 2024 11:15 AM [facility] GLUCOSE,BLOOD-poct (STL) Specimen Type: BLOOD Comment: Test Performed by: [id number] Meter #: [id number] Ordering Provider: SILVIA REDDY Report Released Date/Time: Aug 22, 2024 11:27 AM Reporting Lab: [facility] [address] Performing Lab: [facility] [address] GLUCOSE,BLOOD- poct (STL) 140 mg/dL H 72-Aug 22, 2024 08:[address] [facility] FERRITIN Specimen Type: SERUM No comment entered. Ordering Provider: JUDIT PERKINS Report Released Date/Time: Aug 18, 2024 11:01 AM Reporting Lab: [facility] [address] [facility] [address] Performing Lab: [facility] [address] [place] [address] FERRITIN 79.50 ng/mL 22-275 Aug 22, 2024 08:03 AM [facility] IRON/TIBC PROFILE Specimen Type: SERUM No comment entered. Ordering Provider: JUDIT PERKINS Report Released Date/Time: Aug 18, 2024 11:01 AM Reporting Lab: [address] [address] Performing Lab: [address] [address] TIBC 283 ug/dL 250-450 TRANSFERRIN 226 mg/dL 163-344 IRON SATURATION 7 L 20-50 IRON 19 ug/dL L 65-175 Aug 22, 2024 08:03 AM [facility] B12 Specimen Type: SERUM No comment entered. Ordering Provider: JUDIT PERKINS Report Released Date/Time: Aug 18, 2024 11:01 AM Reporting Lab: [facility] [address] Performing Lab: [facility] [address] B12 631 pg/mL 213-816 Aug 22, 2024 08:03 AM [facility] COMPREHENSIVE METABOLIC PANEL Specimen Type: PLASMA Comment: No hemolysis noted. Ordering Provider: SILVIA REDDY Report Released Date/Time: Aug 17, 2024 01:18 PM Reporting Lab: [facility] [address] [facility] [address] Performing Lab: [address] [address] CREATININE 0.80 mg/dL 0.7-1.3 UREA NITROGEN 9.7 [...] 94.0 >60 Aug 22, 2024 08:03 AM [facility] CBC Specimen Type: BLOOD No comment entered. Ordering Provider: SILVIA REDDY Report Released Date/Time: Aug 17, 2024 01:18 PM Reporting Lab: [facility] [address] Performing Lab: [facility] [address] WBC 3.5 10*3/uL L 3.6-11.2 RBC 3.23 [...] NRBC% 0 Aug 22, 2024 05:03 AM [facility] GLUCOSE,BLOOD-poct (STL) Specimen Type: BLOOD Comment: Test Performed by: [id number] Meter #: [id number] Ordering Provider: SILVIA REDDY Report Released Date/Time: Aug 22, 2024 06:17 AM Reporting Lab: [facility] [address] Performing Lab: [facility] [address] GLUCOSE,BLOOD- poct (STL) 170 mg/dL H 72-Aug 21, 2024 04:32 PM [facility] GLUCOSE,BLOOD-poct (STL) Specimen Type: BLOOD Comment: Test Performed by: [id number] Meter #: [id number] Ordering Provider: SILVIA REDDY Report Released Date/Time: Aug 21, 2024 04:49 PM Reporting Lab: [facility] [address] Performing Lab: [facility] [address] GLUCOSE,BLOOD- poct (STL) 169 mg/dL H -Aug 21, 2024 11:53 AM [facility] GLUCOSE,BLOOD-poct (STL) Specimen Type: BLOOD Comment: Test Performed by: [id number] Meter #: [id number] Ordering Provider: SILVIA REDDY Report Released Date/Time: Aug 21, 2024 12:11 PM Reporting Lab: [facility] [address] Performing Lab: [facility] [address] GLUCOSE,BLOOD- poct (STL) 149 mg/dL H 72-Aug 21, 2024 05:10 AM [facility] GLUCOSE,BLOOD-poct (STL) Specimen Type: BLOOD Comment: Test Performed by: [id number] Meter #: [id number] Ordering Provider: SILVIA REDDY Report Released Date/Time: Aug 21, 2024 05:27 AM Reporting Lab: [facility] [address] Performing Lab: [facility] [address] GLUCOSE,BLOOD- poct (STL) 118 mg/dL H 72-Aug 20, 2024 04:38 PM [facility] GLUCOSE,BLOOD-poct (STL) Specimen Type: BLOOD Comment: Test Performed by: [id number] Meter #: [id number] Ordering Provider: SILVIA REDDY Report Released Date/Time: Aug 21, 2024 01:55 AM Reporting Lab: [facility] [address] Performing Lab: [facility] [address] [place] [address] GLUCOSE,BLOOD- poct (STL) 169 mg/dL H -Aug 20, 2024 04:36 PM [facility] GLUCOSE,BLOOD-poct (STL) Specimen Type: BLOOD Comment: Test Performed by: [id number] Meter #: [id number] Ordering Provider: SILVIA REDDY Report Released Date/Time: Aug 21, 2024 01:55 AM Reporting Lab: [facility] [address] Performing Lab: [facility] [address] GLUCOSE,BLOOD- poct (STL) 395 mg/dL H 72-Aug 20, 2024 11:45 AM [facility] GLUCOSE,BLOOD-poct (STL) Specimen Type: BLOOD Comment: Test Performed by: [id number] Meter #: [id number] Ordering Provider: SILVIA REDDY Report Released Date/Time: Aug 20, 2024 11:56 AM Reporting Lab: [facility] [place] [address] Performing Lab: [facility] [address] GLUCOSE,BLOOD- poct (STL) 169 mg/dL H -Aug 20, 2024 05:06 AM [facility] GLUCOSE,BLOOD-poct (STL) Specimen Type: BLOOD Comment: Test Performed by: [id number] Meter #: [id number] Ordering Provider: SILVIA REDDY Report Released Date/Time: Aug 20, 2024 06:05 AM Reporting Lab: [facility] [address] Performing Lab: [facility] [address] GLUCOSE,BLOOD- poct (STL) 115 mg/dL H -Aug 19, 2024 04:23 PM [facility] GLUCOSE,BLOOD-poct (STL) Specimen Type: BLOOD Comment: Test Performed by: [id number] Meter #: [id number] Ordering Provider: SILVIA REDDY Report Released Date/Time: Aug 19, 2024 05:54 PM Reporting Lab: [facility] [address] Performing Lab: [facility] [address] GLUCOSE,BLOOD- poct (STL) 137 mg/dL H -Aug 19, 2024 11:28 AM [facility] GLUCOSE,BLOOD-poct (STL) Specimen Type: BLOOD Comment: Test Performed by: [id number] Meter #: [id number] Ordering Provider: SILVIA REDDY Report Released Date/Time: Aug 19, 2024 11:51 AM Reporting Lab: [facility] [address] Performing Lab: [facility] [address] GLUCOSE,BLOOD- poct (STL) 190 mg/dL H Aug 19, 2024 05:21 AM [facility] GLUCOSE,BLOOD-poct (STL) Specimen Type: BLOOD Comment: Test Performed by: [id number] Meter #: [id number] Ordering Provider: SILVIA REDDY Report Released Date/Time: Aug 19, 2024 05:56 AM Reporting Lab: [facility] [address] Performing Lab: [facility] [address] GLUCOSE,BLOOD- poct (STL) 130 mg/dL H Aug 18, 2024 04:49 PM [facility] GLUCOSE,BLOOD-poct (STL) Specimen Type: BLOOD Comment: Test Performed by: [id number] Meter #: [id number] Ordering Provider: SILVIA REDDY Report Released Date/Time: Aug 18, 2024 05:01 PM Reporting Lab: [facility] [address] Performing Lab: [facility] [address] GLUCOSE,BLOOD- poct (STL) 129 mg/dL H Aug 18, 2024 11:23 AM [facility] GLUCOSE,BLOOD-poct (STL) Specimen Type: BLOOD Comment: Test Performed by: [id number] Meter #: [id number] Ordering Provider: SILVIA REDDY Report Released Date/Time: Aug 18, 2024 11:41 AM Reporting Lab: [facility] [address] Performing Lab: [facility] [address] GLUCOSE,BLOOD- poct (STL) 180 mg/dL H Aug 18, 2024 05:08 AM [facility] GLUCOSE,BLOOD-poct (STL) Specimen Type: BLOOD Comment: Test Performed by: [id number] Meter #: [id number] Ordering Provider: SILVIA REDDY Report Released Date/Time: Aug 18, 2024 05:31 AM Reporting Lab: [facility] [address] Performing Lab: [facility] [address] GLUCOSE,BLOOD- poct (STL) 127 mg/dL H -Aug 17, 2024 07:32 PM [facility] GLUCOSE,BLOOD-poct (STL) Specimen Type: BLOOD Comment: Test Performed by: [id number] Meter #: [id number] Ordering Provider: SILVIA REDDY Report Released Date/Time: Aug 17, 2024 07:59 PM Reporting Lab: [facility] [address] Performing Lab: [facility] [address] GLUCOSE,BLOOD- poct (STL) 154 mg/dL H -Aug 17, 2024 04:24 PM [facility] GLUCOSE,BLOOD-poct (STL) Specimen Type: BLOOD Comment: Test Performed by: [id number] Meter #: [id number] Ordering Provider: SILVIA REDDY Report Released Date/Time: Aug 17, 2024 04:35 PM Reporting Lab: [facility] [address] Performing Lab: [facility] [address] GLUCOSE,BLOOD- poct (STL) 178 mg/dL H -Aug 17, 2024 05:09 AM [facility] GLUCOSE,BLOOD-poct (STL) Specimen Type: BLOOD Comment: Test Performed by: [id number] Meter #: [id number] Ordering Provider: SILVIA REDDY Report Released Date/Time: Aug 17, 2024 05:54 AM Reporting Lab: [facility] [place] [address] Performing Lab: [facility] [address] GLUCOSE,BLOOD- poct (STL) 124 mg/dL H -Aug 16, 2024 07:40 PM [facility] GLUCOSE,BLOOD-poct (STL) Specimen Type: BLOOD Comment: Test Performed by: [id number] Meter #: [id number] Ordering Provider: SILVIA REDDY Report Released Date/Time: Aug 16, 2024 08:28 PM Reporting Lab: [facility] [address] Performing Lab: [facility] [address] GLUCOSE,BLOOD- poct (STL) 144 mg/dL H Aug 16, 2024 04:19 PM [facility] GLUCOSE,BLOOD-poct (STL) Specimen Type: BLOOD Comment: Test Performed by: [id number] Meter #: [id number] Ordering Provider: SILVIA REDDY Report Released Date/Time: Aug 16, 2024 04:45 PM Reporting Lab: [facility] [address] Performing Lab: [facility] [address] GLUCOSE,BLOOD- poct (STL) 138 mg/dL H Aug 16, 2024 11:52 AM [facility] GLUCOSE,BLOOD-poct (STL) Specimen Type: BLOOD Comment: Test Performed by: [id number] Meter #: [id number] Ordering Provider: SILVIA REDDY Report Released Date/Time: Aug 16, 2024 12:04 PM Reporting Lab: [facility] [address] Performing Lab: [facility] [address] GLUCOSE,BLOOD- poct (STL) 135 mg/dL H Aug 16, 2024 05:24 AM [facility] GLUCOSE,BLOOD-poct (STL) Specimen Type: BLOOD Comment: Test Performed by: [id number] Meter #: [id number] Ordering Provider: SILVIA REDDY Report Released Date/Time: Aug 16, 2024 05:38 AM Reporting Lab: [facility] [address] Performing Lab: [facility] [address] GLUCOSE,BLOOD- poct (STL) 151 mg/dL H Aug 15, 2024 07:31 PM [facility] GLUCOSE,BLOOD-poct (STL) Specimen Type: BLOOD Comment: Test Performed by: [id number] Meter #: [id number] Ordering Provider: SILVIA REDDY Report Released Date/Time: Aug 15, 2024 08:07 PM Reporting Lab: [facility] [address] Performing Lab: [facility] [address] GLUCOSE,BLOOD- poct (STL) 173 mg/dL H Aug 15, 2024 04:18 PM [facility] GLUCOSE,BLOOD-poct (STL) Specimen Type: BLOOD Comment: Test Performed by: [id number] Meter #: [id number] Ordering Provider: SILVIA REDDY Report Released Date/Time: Aug 15, 2024 04:59 PM Reporting Lab: [facility] [address] Performing Lab: [facility] [address] GLUCOSE,BLOOD- poct (STL) 136 mg/dL H Aug 15, 2024 04:16 PM [facility] GLUCOSE,BLOOD-poct (STL) Specimen Type: BLOOD Comment: Test Performed by: [id number] Meter #: [id number] Ordering Provider: SILVIA REDDY Report Released Date/Time: Aug 15, 2024 04:59 PM Reporting Lab: [facility] [address] Performing Lab: [facility] [address] GLUCOSE,BLOOD- poct (STL) 194 mg/dL H -Aug 15, 2024 11:39 AM [facility] GLUCOSE,BLOOD-poct (STL) Specimen Type: BLOOD Comment: Test Performed by: [id number] Meter #: [id number] Ordering Provider: SILVIA REDDY Report Released Date/Time: Aug 15, 2024 12:00 PM Reporting Lab: [facility] [address] Performing Lab: [facility] [address] GLUCOSE,BLOOD- poct (STL) 127 mg/dL H -Aug 15, 2024 05:07 AM [facility] GLUCOSE,BLOOD-poct (STL) Specimen Type: BLOOD Comment: Test Performed by: [id number] Meter #: [id number] Ordering Provider: SILVIA REDDY Report Released Date/Time: Aug 15, 2024 06:14 AM Reporting Lab: [facility] [address] Performing Lab: [facility] [address] GLUCOSE,BLOOD- poct (STL) 151 mg/dL H -Aug 14, 2024 04:22 PM [facility] GLUCOSE,BLOOD-poct (STL) Specimen Type: BLOOD Comment: Test Performed by: [id number] Meter #: [id number] Ordering Provider: SILVIA REDDY Report Released Date/Time: Aug 14, 2024 04:52 PM Reporting Lab: [facility] [place] [address] Performing Lab: [facility] [address] GLUCOSE,BLOOD- poct (STL) 129 mg/dL H 72-99 Aug 14, 2024 11:21 AM [facility] GLUCOSE,BLOOD-poct (STL) Specimen Type: BLOOD Comment: Test Performed by: [id number] Meter #: [id number] Ordering Provider: SILVIA REDDY Report Released Date/Time: Aug 14, 2024 11:37 AM Reporting Lab: [facility] [facility] [address] Performing Lab: [facility] [facility] [address] GLUCOSE,BLOOD- poct (STL) 135 mg/dL H 72-99 Aug 14, 2024 06:59 AM [facility] QUANTIFERON-TB,4 TUBE Specimen Type: BLOOD Comment: normalcy [...] For additional information, please refer to http://education. [employer]/faq/OVS280 (This link is being provided for information/ educational purposes only.) Test Performed by [employer], [facility], [address] [place] [address] Tommie Garcia M.D., Ph.D., Director of Laboratories , [facility] [id number] Ordering Provider: SILVIA REDDY Report Released Date/Time: Aug 11, 2024 03:58 PM Reporting Lab: [facility] [address] [facility] [address] Performing Lab: [facility] [id number] [place] [id number] .NIL - QUANTIFERON 0.04 [IU]/mL .MITOGEN-NIL 0.39 [IU]/mL .QUANTIFERON INDETERMINATE NEGATIVE .TB1-NIL <0.00 [IU]/mL .TB2-NIL <0.00 [IU]/mL Aug 14, 2024 06:59 AM [facility] MAGNESIUM Specimen Type: PLASMA Comment: No hemolysis noted. Ordering Provider: SILVIA REDDY Report Released Date/Time: Aug 11, 2024 03:58 PM Reporting Lab: [facility] [facility] [address] Performing Lab: [facility] [facility] [address] MAGNESIUM 1.9 mg/dL 1.6-2.6 Aug 14, 2024 06:59 AM [facility] B12 Specimen Type: SERUM No comment entered. Ordering Provider: SILVIA REDDY Report Released Date/Time: Aug 11, 2024 03:58 PM Reporting Lab: [facility] [facility] [address] Performing Lab: [facility] [facility] [address] B12 757 pg/mL 213-816 Aug 14, 2024 06:59 AM [facility] FOLATE (STL-MA) Specimen Type: SERUM No comment entered. Ordering Provider: SILVIA REDDY Report Released Date/Time: Aug 11, 2024 03:58 PM Reporting Lab: [facility] [facility] [address] Performing Lab: [facility] [facility] [address] FOLATE (STL-MA) 6.8 ng/mL L 7-20 Aug 14, 2024 06:59 AM [facility] VITAMIN D, 25-HYDROXY Specimen Type: SERUM No comment entered. Ordering Provider: SILVIA REDDY Report Released Date/Time: Aug 11, 2024 03:58 PM Reporting Lab: [facility] [address] Performing Lab: [facility] [address] VITAMIN D, 25-HYDROXY 8.9 ng/mL L 30-96 Aug 14, 2024 06:59 AM [facility] COMPREHENSIVE METABOLIC PANEL Specimen Type: PLASMA Comment: No hemolysis noted. Ordering Provider: SILVIA REDDY Report Released Date/Time: Aug 11, 2024 03:58 PM Reporting Lab: [facility] [address] Performing Lab: [facility] [address] CREATININE 0.75 mg/dL 0.70-1.30 UREA NITROGEN 13.6 [...] 95.88 >60 Aug 14, 2024 06:59 AM [facility] CBC Specimen Type: BLOOD No comment entered. Ordering Provider: SILVIA REDDY Report Released Date/Time: Aug 11, 2024 03:58 PM Reporting Lab: [facility] [address] Performing Lab: [facility] [address] WBC 4.1 10*3/uL 3.6-11.2 RBC 3.20 10*6/uL [...] 10*3/uL 0.00-0.20 Aug 14, 2024 05:08 AM [facility] GLUCOSE,BLOOD-poct (STL) Specimen Type: BLOOD Comment: Test Performed by: [id number] Meter #: [id number] Ordering Provider: SILVIA REDDY Report Released Date/Time: Aug 14, 2024 05:52 AM Reporting Lab: [facility] [address] Performing Lab: [facility] [address] GLUCOSE,BLOOD- poct (STL) 135 mg/dL H 72-99 Aug 13, 2024 04:27 PM [facility] GLUCOSE,BLOOD-poct (STL) Specimen Type: BLOOD Comment: Test Performed by: [id number] Meter #: [id number] Ordering Provider: SILVIA REDDY Report Released Date/Time: Aug 13, 2024 04:41 PM Reporting Lab: [facility] [address] Performing Lab: [facility] [address] GLUCOSE,BLOOD- poct (STL) 181 mg/dL H -Aug 13, 2024 11:33 AM [facility] GLUCOSE,BLOOD-poct (STL) Specimen Type: BLOOD Comment: Test Performed by: [id number] Meter #: [id number] Ordering Provider: SILVIA REDDY Report Released Date/Time: Aug 13, 2024 03:55 PM Reporting Lab: [facility] [address] Performing Lab: [facility] [place] [address] GLUCOSE,BLOOD- poct (STL) 140 mg/dL H Aug 13, 2024 05:54 AM [facility] GLUCOSE,BLOOD-poct (STL) Specimen Type: BLOOD Comment: Test Performed by: [id number] Meter #: [id number] Ordering Provider: SILVIA REDDY Report Released Date/Time: Aug 13, 2024 06:20 AM Reporting Lab: [facility] [address] Performing Lab: [facility] [address] GLUCOSE,BLOOD- poct (STL) 112 mg/dL H Aug 12, 2024 04:35 PM [facility] GLUCOSE,BLOOD-poct (STL) Specimen Type: BLOOD Comment: Test Performed by: [id number] Meter #: [id number] Ordering Provider: SILVIA REDDY Report Released Date/Time: Aug 12, 2024 04:47 PM Reporting Lab: [facility] [address] Performing Lab: [facility] [address] GLUCOSE,BLOOD- poct (STL) 128 mg/dL H 72-99 Aug 12, 2024 11:26 AM [facility] GLUCOSE,BLOOD-poct (STL) Specimen Type: BLOOD Comment: Test Performed by: [id number] Meter #: [id number] Ordering Provider: SILVIA REDDY Report Released Date/Time: Aug 12, 2024 11:45 AM Reporting Lab: [facility] [address] Performing Lab: [facility] [address] GLUCOSE,BLOOD- poct (STL) 188 mg/dL H 72-Aug 12, 2024 06:13 AM [facility] GLUCOSE,BLOOD-poct (STL) Specimen Type: BLOOD Comment: Test Performed by: [id number] Meter #: [id number] Ordering Provider: SILVIA REDDY Report Released Date/Time: Aug 12, 2024 06:25 AM Reporting Lab: [facility] [address] Performing Lab: [facility] [address] GLUCOSE,BLOOD- poct (STL) 116 mg/dL H 72-99 Aug 11, 2024 04:10 PM [facility] GLUCOSE,BLOOD-poct (STL) Specimen Type: BLOOD Comment: Test Performed by: [id number] Meter #: [id number] Ordering Provider: SILVIA REDDY Report Released Date/Time: Aug 11, 2024 04:27 PM Reporting Lab: [facility] [place] [address] Performing Lab: [facility] [address] GLUCOSE,BLOOD- poct (STL) 184 mg/dL H 72-99 Aug 11, 2024 01:44 PM [facility] MRSA SURVL NARES DNA Specimen Type: [...] Aug 11, 2024 02:03 PM Reporting Lab: [address] [address] Performing Lab: [address] [address] MRSA SURVL NARES DNA Negative Negative Jul 20, 2024 11:18 AM [facility] APTT Specimen Type: PLASMA No comment entered. Ordering Provider: MANUEL BAIRD Report Released Date/Time: Jul 19, 2024 04:00 PM Reporting Lab: [address] [address] Performing Lab: [address] [address] APTT 32.1 s 26.7-39.9 Jul 20, 2024 11:18 AM [facility] PT/INR NEW (L-MN) Specimen Type: PLASMA No comment entered. Ordering Provider: MANUEL BAIRD Report Released Date/Time: Jul 19, 2024 04:00 PM Reporting Lab: [address] [address] Performing Lab: [address] [address] PROTIME 14.4 s H 9.4-12.5 INR VALUE 1.3 {INR} Jul 20, 2024 11:18 AM [facility] CBC Specimen Type: BLOOD No comment entered. Ordering Provider: MANUEL BAIRD Report Released Date/Time: Jul 19, 2024 04:00 PM Reporting Lab: [facility] [address] [facility] [address] Performing Lab: [facility] [address] [place] [address] WBC 4.7 10*3/uL 3.6-11.2 RBC 4.86 10*6/uL [...] 1.0-7.0 Jul 17, 2024 08:02 AM [facility] BASIC METABOLIC PANEL Specimen Type: PLASMA Comment: No hemolysis noted. Ordering Provider: MARY SERNA Report Released Date/Time: Jun 07, 2024 01:43 PM Reporting Lab: [facility] [address] [facility] [address] Performing Lab: [address] [address] CREATININE 0.85 mg/dL 0.7-1.3 UREA NITROGEN 15.2 [...] AM QUIT TOBACCO >7 YEARS AGO [facility] Tobacco Use History This section includes a history of the smoking, or tobacco-related health factors, that were collected on or before the date of the Encounter. The data comes from the [place] facility where the Encounter took place. Date/Time Smoking Status/Tobacco Use Comment F acility Sep 30, 2015 10:12 AM QUIT TOBACCO >7 YEARS AGO [facility] Oct 29, 2014 10:23 AM QUIT TOBACCO >7 YEARS AGO [facility] Dec 27, 2013 01:27 PM QUIT TOBACCO >7 YEARS AGO [facility] Feb 24, 2013 02:01 PM LIFETIME NON-USER OF TOBACCO [facility] Feb 11, 2009 10:09 AM QUIT TOBACCO >7 YEARS AGO [facility] Oct 06, 2006 09:30 AM CURRENT NON-TOBACC O USER-HX OF USE [facility] Oct 06, 2006 09:30 AM TOBACCO TERMINATION STAGE [facility] Advance Directives: All historical and current Section [...] Encounter Note(s) Provider Source Aug 11, 2024 10:39 AM ADMINISTRATIVE NOT E: LOCAL TITLE: BENEFICIARY TRAVEL (BT) STANDARD TITLE: ADMINISTRATIVE NOTE DATE OF NOTE: AUG 11, 2024@10:39 ENTRY DATE: AUG 11, 2024@10:39:57 AUTHOR: PETAR RAINES EXP COSIGNER: URGENCY: STATUS: COMPLETED BENEFICIARY TRAVEL SPECIAL MODE TRANSPORTATION: I have informed the that, requests with insufficient evidence of functional need, containing information that appears inconsistent with clinical evidence or appears intentionally exaggerated to obtain eligibility will be referred for further review or returned for additional information or clarification. Point of Contact's E-mail: Phone/Pager/Extension: MEDICAL JUSTIFICATION [place] is not able to transfer into a private vehicle or medically appropriate common carrier, or requires additional assistance as outlined below. The clinical condition requiring the use of [place] Special Mode transportation to be safely transported are as follows: Severe deconditioning or functional limitation precluding private transportation with assistance This request is not for an inter-facility transfer BASIC LIFE SUPPORT (Stretcher; Mechanic Driver On-Board): Stretcher: Patient is bed-bound and unable to safely travel by POV or common carrier, or is unable to maintain static sitting position for the duration of the trip. Describe functional limitations in detail clarifying why patient requires stretcher transport. 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
--- OUTSIDE RECORDS SUMMARY | 2024-11-17 03:59 | XMS_ITS ---
[facility] HOSPITALIZATION [facility] Encounter Summary Created on: November 16, 2024 CHET WALKER : 1950 Sex: Male Author Name [facility] Organization [facility] Address [address] [place] [address] Care Team Providers Care Preparation Department Supervisor Name Role Phone MANUEL BAIRD Primary [...] PART A Apr 08, 2017 PART A [id number] [phone] ASHLEY WALKER PATIENT Selected Encounter This section includes the information on record at ID for the Encounter. Date/Time Encounter Type Encounter Description Reason Provider Source Aug 11, 2024 02:02 PM Inpatient Visit HOSPITALIZATION ICD-10-CM D50.9 Iron deficiency anemia, unspecified MARY ALICE REDDY Encounter Template Text not used by ID Assessments - Encounter Diagnoses This section includes the primary and secondary diagnoses documented for the Encounter. Date/Time Primary/Secondary Diagnosis Diagnosis Name Provider Source Aug 23, 2024 11:25 AM Diagnosis for Length of Stay Athscl heart disease of [place] coronary artery w/o ang pctrs [facility] Aug 23, 2024 11:25 AM SECONDARY Atrioventricular block, complete [facility] Aug 23, 2024 11:25 AM SECONDARY Body mass index [BMI] 30.0-30.9, adult [facility] Aug 23, 2024 11:25 AM SECONDARY Encntr for surgical aftcr following surgery on the circ sys [facility] Aug 23, 2024 11:25 AM SECONDARY Hypertensive heart disease with heart failure [facility] Aug 23, 2024 11:25 AM SECONDARY Hypotension, unspecified [facility] Aug 23, 2024 11:25 AM SECONDARY Iron deficiency anemia, unspecified [facility] Aug 23, 2024 11:25 AM SECONDARY Lng trm (crnt) use injectable non-insulin antidiabetic drugs 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 Aug 23, 2024 11:25 AM SECONDARY Obesity, unspecified [facility] Aug 23, 2024 11:25 AM SECONDARY Obstructive sleep apnea (adult) (pediatric) [facility] Aug 23, 2024 11:25 AM SECONDARY Other specified anemias [facility] Aug 23, 2024 11:25 AM SECONDARY Presence of aortocoronary bypass graft [facility] Aug 23, 2024 11:25 AM SECONDARY Presence of automatic (implantable) cardiac defibrillator [facility] Aug 23, 2024 11:25 AM SECONDARY Thrombocytopenia, unspecified [facility] Aug 23, 2024 11:25 AM SECONDARY Type 2 diabetes mellitus with diabetic neuropathy, unsp [facility] Aug 23, 2024 11:25 AM SECONDARY Type 2 diabetes mellitus with hypoglycemia without coma [facility] Aug 23, 2024 11:25 AM SECONDARY Unilateral primary osteoarthritis, unspecified knee [facility] Aug 23, 2024 11:25 AM SECONDARY Unspecified systolic (congestive) heart failure [facility] Aug 23, 2024 11:25 [address] Weakness [facility] Plan of Treatment: Future Appointments (+ 6 months) and Future Tests (+/- 45 days) The Plan of Treatment section includes future care activities for the patient from [facility] This section includes future appointments and future orders which are active, pending or scheduled. Future Appointments This section includes appointments that were scheduled to occur 6 months from the date of the Encounter, up to a maximum of 20 appointments. The data comes from all [facility]. Appointment Date/Time Appointment Type Appointme nt Facility Name Aug 24, 2024 10:00 AM AMBULATORY - MEDICINE [facility] Aug 24, 2024 10:30 AM AMBULATORY - MEDICINE [facility] Aug 30, 2024 09:30 AM AMBULATORY MEDICINE [facility] Aug 31, 2024 01:00 PM AMBULATORY - SURGERY [facility] Sep 21, 2024 01:30 PM AMBULATORY - MEDICINE [facility] Sep 22, 2024 11:00 AM AMBULATORY - MEDICINE [facility] Sep 29, 2024 12:30 PM AMBULATORY - MEDICINE [facility] Oct 02, 2024 09:30 AM AMBULATORY - MEDICINE [facility] Nov 20, 2024 10:30 AM AMBULATORY - SURGERY [facility] Nov 21, 2024 10:00 AM AMBULATORY - NONE [facility] Dec 11, 2024 10:30 AM AMBULATORY - MEDICINE [facility] Active, Pending, and [...] of theEncounter. The data comes from all [facility]. Test Date/Time Test Type Test Details Facility Name Aug 02, 2024 12:00 AM Laboratory - Chemistry Order CBC BLOOD STAT SP [facility] Aug 02, 2024 12:00 AM Laboratory - Chemistry Order COMPREHENSIVE METABOLIC PANEL GREEN LI/HEP BLD/PLAS PLASMA SP [facility] Aug 17, 2024 03:47 PM Consult Order PENDING SALE TO [facility] Cons Bedside [facility] Lab Results: +/- 30 days of the encounter This section includes the Chemistry and Hematology Lab Results on record with ID for the patient. Radiology Reports and Pathology Reports are provided separately, in subsequent sections. Lab Results This section contains the Chemistry/Hematology Results that were resulted 30 days before or 30 daysafter the date of the Encounter. Date/Time Source Result Type Result - Unit Interpretation Reference Range Comment Aug 23, 2024 08:21 AM [facility] MAGNESIUM Specimen Type: PLASMA No comment entered. Ordering Provider: SILVIA REDDY Report Released Date/Time: Aug 22, 2024 11:26 AM Reporting Lab: [facility] [address] Performing Lab: [facility] [address] MAGNESIUM 1.8 mg/dL 1.6-2.6 Aug 23, 2024 08:21 AM [facility] CBC Specimen Type: BLOOD No comment entered. Ordering Provider: SILVIA REDDY Report Released Date/Time: Aug 22, 2024 11:19 AM Reporting Lab: [facility] [address] Performing Lab: [facility] [address] WBC 4.0 10*3/uL 3.6-11.2 RBC 3.65 10*6/uL [...] 10*3/uL 0.00-0.20 Aug 23, 2024 05:12 AM [facility] GLUCOSE,BLOOD-poct (STL) Specimen Type: BLOOD Comment: Test Performed by: [id number] Meter #: [id number] Ordering Provider: SILVIA REDDY Report Released Date/Time: Aug 23, 2024 05:23 AM Reporting Lab: [facility] [address] Performing Lab: [facility] [address] GLUCOSE,BLOOD- poct (STL) 99 mg/dL 72-99 Aug 23, 2024 02:45 AM [facility] OCCULT BLOOD FIT X1 SCREEN Specimen Type: FECES No comment entered. Ordering Provider: SILVIA REDDY Report Released Date/Time: Aug 22, 2024 11:23 AM Reporting Lab: [address] [address] Performing Lab: [address] [address] OCCULT BLOOD (FIT) #1 OF 1 Negative Negative Aug 22, 2024 07:30 PM [facility] OCCULT BLOOD FIT X1 SCREEN Specimen Type: FECES No comment entered. Ordering Provider: SILVIA REDDY Report Released Date/Time: Aug 22, 2024 11:23 AM Reporting Lab: [address] [address] Performing Lab: [address] [address] OCCULT BLOOD (FIT) #1 OF 1 Negative Negative Aug 22, 2024 06:15 PM [facility] OCCULT BLOOD FIT X1 SCREEN Specimen Type: FECES No comment entered. Ordering Provider: SILVIA REDDY Report Released Date/Time: Aug 22, 2024 11:23 AM Reporting Lab: [address] [address] Performing Lab: [address] [address] OCCULT BLOOD (FIT) #1 OF 1 Negative Negative Aug 22, 2024 04:24 PM [facility] GLUCOSE,BLOOD-poct (STL) Specimen Type: BLOOD Comment: Test Performed by: [id number] Meter #: [id number] Ordering Provider: SILVAI REDDY Report Released Date/Time: Aug 22, 2024 04:36 PM Reporting Lab: [facility] [address] Performing Lab: [facility] [address] GLUCOSE,BLOOD- poct (STL) 176 mg/dL H 72-99 Aug 22, 2024 04:23 PM [facility] GLUCOSE,BLOOD-poct (STL) Specimen Type: BLOOD Comment: Test Performed by: [id number] Meter #: [id number] Ordering Provider: SILVIA REDDY Report Released Date/Time: Aug 22, 2024 04:36 PM Reporting Lab: [facility] [address] Performing Lab: [facility] [address] GLUCOSE,BLOOD- poct (STL) 221 mg/dL H 72-99 Aug 22, 2024 11:15 AM [facility] GLUCOSE,BLOOD-poct (STL) Specimen Type: BLOOD Comment: Test Performed by: [id number] Meter #: [id number] Ordering Provider: SILVIA REDDY Report Released Date/Time: Aug 22, 2024 11:27 AM Reporting Lab: [facility] [address] Performing Lab: [facility] [address] GLUCOSE,BLOOD- poct (STL) 140 mg/dL H 72-99 Aug 22, 2024 08:03 AM [facility] FERRITIN Specimen Type: SERUM No comment entered. Ordering Provider: JUDIT PERKINS Report Released Date/Time: Aug 18, 2024 11:01 AM Reporting Lab: [facility] [address] [place] [address] Performing Lab: [facility] [address] [facility] [place] [address] FERRITIN 79.50 ng/mL 22-275 Aug 22, 2024 08:03 AM [facility] IRON/TIBC PROFILE Specimen Type: SERUM No comment entered. Ordering Provider: JUDIT PERKINS Report Released Date/Time: Aug 18, 2024 11:01 AM Reporting Lab: [facility] [address] [place] [place] [address] Performing Lab: [facility] [address] [place] [address] TIBC 283 ug/dL 250-450 TRANSFERRIN 226 mg/dL 163-344 IRON SATURATION 7 L 20-50 IRON 19 ug/dL L 65-175 Aug 22, 2024 08:03 AM [facility] B12 Specimen Type: SERUM No comment entered. Ordering Provider: JUDIT PERKINS Report Released Date/Time: Aug 18, 2024 11:01 AM Reporting Lab: [facility] [address] Performing Lab: [facility] [address] B12 631 pg/mL 213-816 Aug 22, 2024 08:03 AM [facility] COMPREHENSIVE METABOLIC PANEL Specimen Type: PLASMA Comment: No hemolysis noted. Ordering Provider: SILVIA REDDY Report Released Date/Time: Aug 17, 2024 01:18 PM Reporting Lab: [facility] [address] [place] [address] Performing Lab: [facility] [address] [facility] [place] [address] CREATININE 0.80 mg/dL 0.7-1.3 UREA NITROGEN 9.7 [...] 94.0 >60 Aug 22, 2024 08:03 AM [facility] CBC Specimen Type: BLOOD No comment entered. Ordering Provider: SILVIA REDDY Report Released Date/Time: Aug 17, 2024 01:18 PM Reporting Lab: [facility] [address] Performing Lab: [facility] [address] WBC 3.5 10*3/uL L 3.6-11.2 RBC 3.23 [...] NRBC% 0 Aug 22, 2024 05:03 AM [facility] GLUCOSE,BLOOD-poct (STL) Specimen Type: BLOOD Comment: Test Performed by: [id number] Meter #: [id number] Ordering Provider: SILVIA REDDY Report Released Date/Time: Aug 22, 2024 06:17 AM Reporting Lab: [facility] [address] Performing Lab: [facility] [place] [address] GLUCOSE,BLOOD- poct (STL) 170 mg/dL H 72-Aug 21, 2024 04:32 PM [facility] GLUCOSE,BLOOD-poct (STL) Specimen Type: BLOOD Comment: Test Performed by: [id number] Meter #: [id number] Ordering Provider: SILVIA REDDY Report Released Date/Time: Aug 21, 2024 04:49 PM Reporting Lab: [facility] [place] [address] Performing Lab: [facility] [address] GLUCOSE,BLOOD- poct (STL) 169 mg/dL H 72-99 Aug 21, 2024 11:53 AM [facility] GLUCOSE,BLOOD-poct (STL) Specimen Type: BLOOD Comment: Test Performed by: [id number] Meter #: [id number] Ordering Provider: SILVIA REDDY Report Released Date/Time: Aug 21, 2024 12:11 PM Reporting Lab: [facility] [facility] [address] Performing Lab: [facility] [address] GLUCOSE,BLOOD- poct (STL) 149 mg/dL H 72-99 Aug 21, 2024 05:10 AM [facility] GLUCOSE,BLOOD-poct (STL) Specimen Type: BLOOD Comment: Test Performed by: [id number] Meter #: [id number] Ordering Provider: SILVIA REDDY Report Released Date/Time: Aug 21, 2024 05:27 AM Reporting Lab: [facility] [facility] [address] Performing Lab: [facility] [facility] [address] GLUCOSE,BLOOD- poct (STL) 118 mg/dL H -Aug 20, 2024 04:38 PM [facility] GLUCOSE,BLOOD-poct (STL) Specimen Type: BLOOD Comment: Test Performed by: [id number] Meter #: [id number] Ordering Provider: SILVIA REDDY Report Released Date/Time: Aug 21, 2024 01:55 AM Reporting Lab: [facility] [address] Performing Lab: [facility] [facility] [address] GLUCOSE,BLOOD- poct (STL) 169 mg/dL H 72-Aug 20, 2024 04:36 PM [facility] GLUCOSE,BLOOD-poct (STL) Specimen Type: BLOOD Comment: Test Performed by: [id number] Meter #: [id number] Ordering Provider: SILVIA REDDY Report Released Date/Time: Aug 21, 2024 01:55 AM Reporting Lab: [facility] [address] Performing Lab: [facility] [address] GLUCOSE,BLOOD- poct (STL) 395 mg/dL H -Aug 20, 2024 11:45 AM [facility] GLUCOSE,BLOOD-poct (STL) Specimen Type: BLOOD Comment: Test Performed by: [id number] Meter #: [id number] Ordering Provider: SILVIA REDDY Report Released Date/Time: Aug 20, 2024 11:56 AM Reporting Lab: [facility] [address] Performing Lab: [facility] [address] GLUCOSE,BLOOD- poct (STL) 169 mg/dL H -Aug 20, 2024 05:06 AM [facility] GLUCOSE,BLOOD-poct (STL) Specimen Type: BLOOD Comment: Test Performed by: [id number] Meter #: [id number] Ordering Provider: SILVIA REDDY Report Released Date/Time: Aug 20, 2024 06:05 AM Reporting Lab: [facility] [address] Performing Lab: [facility] [address] GLUCOSE,BLOOD- poct (STL) 115 mg/dL H -Aug 19, 2024 04:23 PM [facility] GLUCOSE,BLOOD-poct (STL) Specimen Type: BLOOD Comment: Test Performed by: [id number] Meter #: [id number] Ordering Provider: SILVIA REDDY Report Released Date/Time: Aug 19, 2024 05:54 PM Reporting Lab: [facility] [address] Performing Lab: [facility] [address] GLUCOSE,BLOOD- poct (STL) 137 mg/dL H -Aug 19, 2024 11:28 AM [facility] GLUCOSE,BLOOD-poct (STL) Specimen Type: BLOOD Comment: Test Performed by: [id number] Meter #: [id number] Ordering Provider: SILVIA REDDY Report Released Date/Time: Aug 19, 2024 11:51 AM Reporting Lab: [facility] [address] Performing Lab: [facility] [address] GLUCOSE,BLOOD- poct (STL) 190 mg/dL H -Aug 19, 2024 05:21 AM [facility] GLUCOSE,BLOOD-poct (STL) Specimen Type: BLOOD Comment: Test Performed by: [id number] Meter #: [id number] Ordering Provider: SILVIA REDDY Report Released Date/Time: Aug 19, 2024 05:56 AM Reporting Lab: [facility] [address] Performing Lab: [facility] [place] [address] GLUCOSE,BLOOD- poct (STL) 130 mg/dL H -Aug 18, 2024 04:49 PM [facility] GLUCOSE,BLOOD-poct (STL) Specimen Type: BLOOD Comment: Test Performed by: [id number] Meter #: [id number] Ordering Provider: SILIVA REDDY Report Released Date/Time: Aug 18, 2024 05:01 PM Reporting Lab: [facility] [address] Performing Lab: [facility] [address] GLUCOSE,BLOOD- poct (STL) 129 mg/dL H -Aug 18, 2024 11:23 AM [facility] GLUCOSE,BLOOD-poct (STL) Specimen Type: BLOOD Comment: Test Performed by: [id number] Meter #: [id number] Ordering Provider: SILVIA REDDY Report Released Date/Time: Aug 18, 2024 11:41 AM Reporting Lab: [facility] [address] Performing Lab: [facility] [address] GLUCOSE,BLOOD- poct (STL) 180 mg/dL H -Aug 18, 2024 05:08 AM [facility] GLUCOSE,BLOOD-poct (STL) Specimen Type: BLOOD Comment: Test Performed by: [id number] Meter #: [id number] Ordering Provider: SILVIA REDDY Report Released Date/Time: Aug 18, 2024 05:31 AM Reporting Lab: [facility] [address] Performing Lab: [facility] [address] GLUCOSE,BLOOD- poct (STL) 127 mg/dL H Aug 17, 2024 07:32 PM [facility] GLUCOSE,BLOOD-poct (STL) Specimen Type: BLOOD Comment: Test Performed by: [id number] Meter #: [id number] Ordering Provider: SILVIA REDDY Report Released Date/Time: Aug 17, 2024 07:59 PM Reporting Lab: [facility] [address] Performing Lab: [facility] [address] GLUCOSE,BLOOD- poct (STL) 154 mg/dL H Aug 17, 2024 04:24 PM [facility] GLUCOSE,BLOOD-poct (STL) Specimen Type: BLOOD Comment: Test Performed by: [id number] Meter #: [id number] Ordering Provider: SILVIA REDDY Report Released Date/Time: Aug 17, 2024 04:35 PM Reporting Lab: [facility] [address] Performing Lab: [facility] [address] GLUCOSE,BLOOD- poct (STL) 178 mg/dL H -Aug 17, 2024 05:09 AM [facility] GLUCOSE,BLOOD-poct (STL) Specimen Type: BLOOD Comment: Test Performed by: [id number] Meter #: [id number] Ordering Provider: SILVIA REDDY Report Released Date/Time: Aug 17, 2024 05:54 AM Reporting Lab: [facility] [address] Performing Lab: [facility] [address] GLUCOSE,BLOOD- poct (STL) 124 mg/dL H Aug 16, 2024 07:40 PM [facility] GLUCOSE,BLOOD-poct (STL) Specimen Type: BLOOD Comment: Test Performed by: [id number] Meter #: [id number] Ordering Provider: SILVIA REDDY Report Released Date/Time: Aug 16, 2024 08:28 PM Reporting Lab: [facility] [address] Performing Lab: [facility] [address] GLUCOSE,BLOOD- poct (STL) 144 mg/dL H Aug 16, 2024 04:19 PM [facility] GLUCOSE,BLOOD-poct (STL) Specimen Type: BLOOD Comment: Test Performed by: [id number] Meter #: [id number] Ordering Provider: SILVIA REDDY Report Released Date/Time: Aug 16, 2024 04:45 PM Reporting Lab: [facility] [address] Performing Lab: [facility] [address] GLUCOSE,BLOOD- poct (STL) 138 mg/dL H Aug 16, 2024 11:52 AM [facility] GLUCOSE,BLOOD-poct (STL) Specimen Type: BLOOD Comment: Test Performed by: [id number] Meter #: [id number] Ordering Provider: SILVIA REDDY Report Released Date/Time: Aug 16, 2024 12:04 PM Reporting Lab: [facility] [address] Performing Lab: [facility] [address] GLUCOSE,BLOOD- poct (STL) 135 mg/dL H -Aug 16, 2024 05:24 AM [facility] GLUCOSE,BLOOD-poct (STL) Specimen Type: BLOOD Comment: Test Performed by: [id number] Meter #: [id number] Ordering Provider: SILVIA REDDY Report Released Date/Time: Aug 16, 2024 05:38 AM Reporting Lab: [facility] [address] Performing Lab: [facility] [address] GLUCOSE,BLOOD- poct (STL) 151 mg/dL H -Aug 15, 2024 07:31 PM [facility] GLUCOSE,BLOOD-poct (STL) Specimen Type: BLOOD Comment: Test Performed by: [id number] Meter #: [id number] Ordering Provider: SILVIA REDDY Report Released Date/Time: Aug 15, 2024 08:07 PM Reporting Lab: [facility] [address] Performing Lab: [facility] [address] GLUCOSE,BLOOD- poct (STL) 173 mg/dL H Aug 15, 2024 04:18 PM [facility] GLUCOSE,BLOOD-poct (STL) Specimen Type: BLOOD Comment: Test Performed by: [id number] Meter #: [id number] Ordering Provider: SILVIA REDDY Report Released Date/Time: Aug 15, 2024 04:59 PM Reporting Lab: [facility] [address] Performing Lab: [facility] [address] GLUCOSE,BLOOD- poct (STL) 136 mg/dL H -Aug 15, 2024 04:16 PM [facility] GLUCOSE,BLOOD-poct (STL) Specimen Type: BLOOD Comment: Test Performed by: [id number] Meter #: [id number] Ordering Provider: SILVIA REDDY Report Released Date/Time: Aug 15, 2024 04:59 PM Reporting Lab: [facility] [address] Performing Lab: [facility] [address] GLUCOSE,BLOOD- poct (STL) 194 mg/dL H Aug 15, 2024 11:39 AM [facility] GLUCOSE,BLOOD-poct (STL) Specimen Type: BLOOD Comment: Test Performed by: [id number] Meter #: [id number] Ordering Provider: SILVIA REDDY Report Released Date/Time: Aug 15, 2024 12:00 PM Reporting Lab: [facility] [address] Performing Lab: [facility] [address] GLUCOSE,BLOOD- poct (STL) 127 mg/dL H Aug 15, 2024 05:07 AM [facility] GLUCOSE,BLOOD-poct (STL) Specimen Type: BLOOD Comment: Test Performed by: [id number] Meter #: [id number] Ordering Provider: SILVIA REDDY Report Released Date/Time: Aug 15, 2024 06:14 AM Reporting Lab: [facility] [address] Performing Lab: [facility] [address] GLUCOSE,BLOOD- poct (STL) 151 mg/dL H -Aug 14, 2024 04:22 PM [facility] GLUCOSE,BLOOD-poct (STL) Specimen Type: BLOOD Comment: Test Performed by: [id number] Meter #: [id number] Ordering Provider: SILVIA REDDY Report Released Date/Time: Aug 14, 2024 04:52 PM Reporting Lab: [facility] [address] Performing Lab: [facility] [address] GLUCOSE,BLOOD- poct (STL) 129 mg/dL H Aug 14, 2024 11:21 AM [facility] GLUCOSE,BLOOD-poct (STL) Specimen Type: BLOOD Comment: Test Performed by: [id number] Meter #: [id number] Ordering Provider: SILVIA REDDY Report Released Date/Time: Aug 14, 2024 11:37 AM Reporting Lab: [facility] [address] Performing Lab: [facility] [address] GLUCOSE,BLOOD- poct (STL) 135 mg/dL H -Aug 14, 2024 06:59 AM [facility] QUANTIFERON-TB,4 TUBE Specimen Type: BLOOD [...] tube is coated with the M. tuberculosis-spec [facility] antigens designed to elicit responses from TB antigen primed CD4+ helper T-lymphocytes. The TB2 Antigen tube is coated with the M. tuberculosis-spec [facility] antigens designed to elicit responses from TB antigen primed CD4+ helper and CD8+ cytotoxic T-lymphocytes. For additional information, please refer to http://education. [email or web address] Friend Traveler/faq/TMT239 (This link is being provided for information/ educational purposes only.) Test Performed by [facility], [facility]od[facility], [id number] [place] [address] Tommie Garcia M.D., Ph.D., Director of Laboratories , [facility] [id number] Ordering Provider: SILVIA REDDY Report Released Date/Time: Aug 11, 2024 03:58 PM Reporting Lab: [facility] [address] [place] [address] Performing Lab: [facility] [address] [place] [employer] .NIL - QUANTIFERON 0.04 [IU]/mL .MITOGEN-NIL 0.39 [IU]/mL .QUANTIFERON INDETERMINATE NEGATIVE .TB1-NIL <0.00 [IU]/mL .TB2-NIL <0.00 [IU]/mL Aug 14, 2024 06:59 AM [facility] B12 Specimen Type: SERUM No comment entered. Ordering Provider: SILVIA REDDY Report Released Date/Time: Aug 11, 2024 03:58 PM Reporting Lab: [facility] [facility] [address] Performing Lab: [facility] [address] B12 757 pg/mL 213-816 Aug 14, 2024 06:59 AM [facility] MAGNESIUM Specimen Type: PLASMA Comment: No hemolysis noted. Ordering Provider: SILVIA REDDY Report Released Date/Time: Aug 11, 2024 03:58 PM Reporting Lab: [facility] [address] Performing Lab: [facility] [address] MAGNESIUM 1.9 mg/dL 1.6-2.6 Aug 14, 2024 06:59 AM [facility] FOLATE (STL-MA) Specimen Type: SERUM No comment entered. Ordering Provider: SILVIA REDDY Report Released Date/Time: Aug 11, 2024 03:58 PM Reporting Lab: [facility] [address] Performing Lab: [facility] [address] FOLATE (L-MA) 6.8 ng/mL L 7-20 Aug 14, 2024 06:59 AM [facility] VITAMIN D, 25-HYDROXY Specimen Type: SERUM No comment entered. Ordering Provider: SILVIA REDDY Report Released Date/Time: Aug 11, 2024 03:58 PM Reporting Lab: [facility] [address] Performing Lab: [facility] [address] VITAMIN D, 25-HYDROXY 8.9 ng/mL L 30-96 Aug 14, 2024 06:59 AM [facility] CBC Specimen Type: BLOOD No comment entered. Ordering Provider: SILVIA REDDY Report Released Date/Time: Aug 11, 2024 03:58 PM Reporting Lab: [facility] [address] Performing Lab: [facility] [address] WBC 4.1 10*3/uL 3.6-11.2 RBC 3.20 10*6/uL [...] 06:59 AM [facility] COMPREHENSIVE METABOLIC PANEL Specimen Type: PLASMA Comment: No hemolysis noted. Ordering Provider: SILVIA REDDY Report Released Date/Time: Aug 11, 2024 03:58 PM Reporting Lab: [facility] [address] Performing Lab: [facility] [address] CREATININE 0.75 mg/dL 0.70-1.30 UREA NITROGEN 13.6 [...] 95.88 >60 Aug 14, 2024 05:08 AM [facility] GLUCOSE,BLOOD-poct (STL) Specimen Type: BLOOD Comment: Test Performed by: [id number] Meter #: [id number] Ordering Provider: SILVIA REDDY Report Released Date/Time: Aug 14, 2024 05:52 AM Reporting Lab: [facility] [facility] [address] Performing Lab: [facility] [address] GLUCOSE,BLOOD- poct (STL) 135 mg/dL H 72-99 Aug 13, 2024 04:27 PM [facility] GLUCOSE,BLOOD-poct (STL) Specimen Type: BLOOD Comment: Test Performed by: [id number] Meter #: [id number] Ordering Provider: SILVIA REDDY Report Released Date/Time: Aug 13, 2024 04:41 PM Reporting Lab: [facility] [facility] [address] Performing Lab: [facility] [place] [address] GLUCOSE,BLOOD- poct (STL) 181 mg/dL H 72-99 Aug 13, 2024 11:33 AM [facility] GLUCOSE,BLOOD-poct (STL) Specimen Type: BLOOD Comment: Test Performed by: [id number] Meter #: [id number] Ordering Provider: SILVIA REDDY Report Released Date/Time: Aug 13, 2024 03:55 PM Reporting Lab: [facility] [facility] [address] Performing Lab: [facility] [facility] [address] GLUCOSE,BLOOD- poct (STL) 140 mg/dL H 72-99 Aug 13, 2024 05:54 AM [facility] GLUCOSE,BLOOD-poct (STL) Specimen Type: BLOOD Comment: Test Performed by: [id number] Meter #: [id number] Ordering Provider: SILVIA REDDY Report Released Date/Time: Aug 13, 2024 06:20 AM Reporting Lab: [facility] [place] [address] Performing Lab: [facility] [address] GLUCOSE,BLOOD- poct (STL) 112 mg/dL H -Aug 12, 2024 04:35 PM [facility] GLUCOSE,BLOOD-poct (STL) Specimen Type: BLOOD Comment: Test Performed by: [id number] Meter #: [id number] Ordering Provider: SILVIA REDDY Report Released Date/Time: Aug 12, 2024 04:47 PM Reporting Lab: [facility] [facility] [address] Performing Lab: [facility] [address] GLUCOSE,BLOOD- poct (STL) 128 mg/dL H Aug 12, 2024 11:26 AM [facility] GLUCOSE,BLOOD-poct (STL) Specimen Type: BLOOD Comment: Test Performed by: [id number] Meter #: [id number] Ordering Provider: SILVIA REDDY Report Released Date/Time: Aug 12, 2024 11:45 AM Reporting Lab: [facility] [facility] [address] Performing Lab: [facility] [facility] [address] GLUCOSE,BLOOD- poct (STL) 188 mg/dL H Aug 12, 2024 06:13 AM [facility] GLUCOSE,BLOOD-poct (STL) Specimen Type: BLOOD Comment: Test Performed by: [id number] Meter #: [id number] Ordering Provider: SILVIA REDDY Report Released Date/Time: Aug 12, 2024 06:25 AM Reporting Lab: [facility] [facility] [address] Performing Lab: [facility] [facility] [address] GLUCOSE,BLOOD- poct (STL) 116 mg/dL H Aug 11, 2024 04:10 PM [facility] GLUCOSE,BLOOD-poct (STL) Specimen Type: BLOOD Comment: Test Performed by: [id number] Meter #: [id number] Ordering Provider: SILVIA REDDY Report Released Date/Time: Aug 11, 2024 04:27 PM Reporting Lab: [facility] [address] Performing Lab: [facility] [address] GLUCOSE,BLOOD- poct (STL) 184 mg/dL H 72-99 Aug 11, 2024 01:44 PM [facility] MRSA SURVL NARES DNA Specimen Type: [...] Aug 11, 2024 02:03 PM Reporting Lab: [facility] [address] [facility] [place] [address] Performing Lab: [address] [address] MRSA SURVL NARES DNA Negative Negative Jul 20, 2024 11:18 AM [facility] APTT Specimen Type: PLASMA No comment entered. Ordering Provider: MANUEL BAIRD Report Released Date/Time: Jul 19, 2024 04:00 PM Reporting Lab: [facility] [address] [place] [address] Performing Lab: [facility] [address] [place] [address] APTT 32.1 s 26.7-39.9 Jul 20, 2024 11:18 AM [facility] PT/INR NEW (STL-MA) Specimen Type: PLASMA No comment entered. Ordering Provider: MANUEL BAIRD Report Released Date/Time: Jul 19, 2024 04:00 PM Reporting Lab: [place] [id number] [facility] [place] [address] Performing Lab: [address] [address] PROTIME 14.4 s H 9.4-12.5 INR VALUE 1.3 {INR} Jul 20, 2024 11:18 AM [facility] CBC Specimen Type: BLOOD No comment entered. Ordering Provider: MANUEL BAIRD Report Released Date/Time: Jul 19, 2024 04:00 PM Reporting Lab: [address] [address] Performing Lab: [address] [address] WBC 4.7 10*3/uL 3.6-11.2 RBC 4.86 10*6/uL [...] Jul 17, 2024 08:[address] [facility] BASIC METABOLIC PANEL Specimen Type: PLASMA Comment: No hemolysis noted. Ordering Provider: MARY SERNA Report Released Date/Time: Jun 07, 2024 01:43 PM Reporting Lab: [facility] [address] [facility] [address] Performing Lab: [facility] [address] [facility] [address] CREATININE 0.85 mg/dL 0.7-1.3 UREA NITROGEN 15.2 [...] 08:19 PM 98.1 74 139/77 18 96 [facility] Aug 11, 2024 08:15 PM 0 [facility] Aug 11, 2024 02:26 PM 211.1 30 [facility] Aug 11, 2024 02:22 PM 97.6 124/77 18 [facility] Advance Directives: All historical and current Section Date Range: From patient's date of to the date document was created. This section includes ALL of a patient's completed or amended ID Advance and Rescinded Directives. The entries below indicate that a directive exists for the patient, but an actual copy is not included with this document. The data comes from all ID facilities. Date Advance Directives Provider Source Jan 19, 2017 ADVANCE DIRECTIVE DISCUSSION ERICK BARDALES [facility] Encounter Notes: All associated encounter notes This section contains the clinical notes associated to the Encounter. Date/Time Encounter Note(s) Provider Source Aug 23, 2024 11:37 AM NURSING TRANSFER SUMMARIZATION DISCHARGE NOTE: LOCAL TITLE: MINDY DISCHARGE/TRANSFER SUMMARY ST STANDARD TITLE: NURSING TRANSFER SUMMARIZATION DISCHARGE NOTE DATE OF NOTE: AUG 23, 2024@11:37 ENTRY DATE: AUG 23, 2024@11:37:21 AUTHOR: VITCORINA SHARPE COSIGNER: URGENCY: STATUS: COMPLETED DISCHARGE - TRANSFER SUMMARY Action: Discharge Diagnosis: Last Admission: 08/11/24 2:02:17 pm Admit Dx: CAD S/P CABG Age: 74 Allergies: TRAMADOL Patient Condition: Stable Vital Signs: Temperature: 98.1 F [36.7 C] (08/22/2024 19:17) Pulse: 71 (08/23/2024 05:19) Respiration: 20 (08/22/2024 19:17) Blood Pressure: 124/62 (08/23/2024 05:19) Pain: 0 (08/23/2024 09:39) Fall Risk Assessment Score: Fall Risk Level: Low Risk SUICIDE SCREEN Morgan Suicide Severity Rating Scale (C-SSRS) 1. Over the past month, have you wished you were or wished you could go to sleep and not wake up? No 2. Over the past month, have you had any actual thoughts of killing yourself? No 3. Over the past month, have you been thinking about how you might do this? Response not required due to responses to other questions. 4. Over the past month, have you had these thoughts and had some intention of acting on them? Response not required due to responses to other questions. 5. Over the past month, have you started to work out or worked out the details of how to kill yourself? Response not required due to responses to other questions. 6. If yes, at any time in the past month did you intend to carry out this plan? Response not required due to responses to other questions. 7. In your lifetime, have you ever done anything, started to do anything, or prepared to do anything to end your life (for example, collected pills, obtained a gun, gave away valuables, went to the roof but didn't jump)? No 8. If YES, was this within the past 3 months? Response not required due to responses to other questions. C-SSRS Screen is Negative Isolation: No Precautions: None Orientation: x3 Hygiene: Self Care Nutrition: Regular diet Special needs: Assistance: Independent Bowel/Bladder: Date of last bowel movement: Aug Defecation: Normal Able to void: YES Continent: YES Catheter: No Wound / Skin Condition: Assessment Type: SKIN REINSPECTION/REASSESSMENT SKIN INSPECTION: Skin Color: Usual for ethnicity Skin Temperature: Warm Skin Moisture: Normal Skin Turgor: Elastic (normal/immediate) Keyla Skin Assessment: The patient's Keyla Scale Score is 18. The patient is at mild risk for development of pressure ulcer/injury. Sensory perception -- ability to respond meaningfully to pressure-related discomfort Slightly limited. Moisture -- degree to which skin is exposed to moisture Rarely moist. Activity -- ability to change and control body position Walks occasionally. Mobility -- ability to change and control body position Slightly limited. Nutrition -- usual food intake patterns Adequate. Friction and shear Potential problem. 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 Patient/Caregiver verifies medication list is complete and accurate. /shen/ AIMEE HANLEY REGISTERED NURSE Signed: 08/23/2024 11:40 VICTORINA SHARPE [facility] Aug 23, 2024 11:25 AM DISCHARGE SUMMARY: LOCAL TITLE: Discharge Summary STANDARD TITLE: DISCHARGE SUMMARY DICT DATE: AUG 23, 2024@12:44 ENTRY DATE: AUG 23, 2024@12:44:12 DICTATED BY: SILVIA REDDY ATTENDING: JUDIT PERKINS URGENCY: routine STATUS: COMPLETED PRINCIPAL DIAGNOSIS: 3 vessel coronary artery bypass graft with pacemaker/difibrillation placement. SECONDARY DIAGNOSES: Significant Medical Problems PRESENT on Admission: Coronary artery disease, hypertension, diabetes, Significant Medical Problems NOT PRESENT on Admission: none OPERATIVE/INVASIVE PROCEDURES: none ATTENDING PHYSICIAN: Judit Perkins M.D. BRIEF HISTORY AND ESSENTIAL PHYSICAL FINDINGS: GEN: NAD, resting in bed, color normal not pale Heart: RRR, no murmurs, S1, S2, midline incision to chest healing well scabs, no redness, pacemaker/defib with steri strips intact, no redness, no drainage. Lungs:Clear to auscultation, no wheezing ABD: soft, nontender, BSx4, 3 small incisions epigastric areas with scabs Genitourinary: Patient voiding without difficulty Musculoskeletal: Extremities mobile Neurological: A&O x3, grossly intact, Skin: L medial arm incision healing well skin dry, no redness or open areas HOSPITAL COURSE: Dorothy was admitted to [facility] for strengthening CAD, s/p CABGx3, started on Plavix and continued on aspirin, statin, and restarted on low dose Coreg. Dorothy now has pacemaker for complete heart block. Dorothy progressed well with therapy and discharging home. Incisions are healed and dorothy will follow up with Cardiothoracic Surgery on September. Dorothy noted to have Anemia iron deficient and hx of thrombocytopenia. Dorothy had appt with mail officer but was cancelled due to his hospitalization. He will obtain a f/u. Hg after surgery remained low in 7 range and prior to surgery he was 12. Vet had received 1 unit of PRBC's at [place] prior to transfer to [facility]. Dorothy had decrease in Hg to 7.6 yesterday but repeat today 8.0. Occult stool x 1 negative, second pending. He reports of never having colonoscopy due to choice. Iron levels low at 19 and iron sats 7 with normal tibc 226, normal ferritin. Ferrous sulfate started. Vet c/o diarrhea 2 x a day after eating. Prob r/t magnesium pills, mag 1.9 and dose was decreased to 400mg bid. Repeat Mg 1.8. 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 Entresto held due to relative hypotension. Also home regimen of Bumex is stopped and patient does not have any lower extremity edema. -restarted Coreg #DM2, A1c reported 7.5%. Patient has been on high-dose of Lantus at home, metformin, Ozempic. He did report weight loss with Ozempic initially. Due to hypoglycemia, insulin and metformin, Ozempic discontinued. He is on sliding scale only. - low-dose of metformin bumped to 750 mg daily, -vet will need to keep a log to determine if needing to restart insulin -Home health ordered with request to f/u with cbc and mag for next week. # Complete heart block, pacemaker placed. # Diabetic neuropathy, painful. On Lyrica and duloxetine.Can increase Lyrica if needed. #HTN-relative hypotension at the hospital,now improved -continue Imdur, Entresto held d/t hypotension - restarted on low-dose Coreg. # Knee osteoarthritis, patient does not report knee pain. # Obstructive sleep apnea, has home CPAP unit. CONDITION ON DISCHARGE: stable FOLLOW-UP: 08/24/2024 10:00 YASH-MAN PACT PHONE MINDY A 09/08/2024 11:30 YASH-PODIATRY QI 09/29/2024 12:30 YASH-CARDIOLOGY SALES COACH 1 10/02/2024 09:30 YASH-MAN PACT STAR RES 2 11/20/2024 10:30 YASH-OPTOMETRY 9 11/21/2024 10:00 YASH-DENTAL HYG 1 12/11/2024 10:30 YASH-ENDOCRINOLOGY BAARSENIOLE NON-VA FOLLOW-UP CARE: Not Applicable DISCHARGE MEDICATIONS: Active Outpatient Medications (including Supplies): Active Outpatient Medications Status ========= 1) A & D OINT APPLY LIBERALLY TO AFFECTED AREA(S) TWICE ACTIVE (S) DAILY 2) ACCU-CHEK GUIDE (GLUCOSE) TEST STRIP USE 1 STRIP FOR HOLD BLOOD TEST TWICE A DAY ALTERNATING TIMES EACH DAY *STABLE INSULIN THERAPY* March 3) ALBUTEROL 90MCG (CFC-F) 200D ORAL INHL INHALE 1 PUFF ACTIVE BY ORAL INHALATION FOUR TIMES A DAY NEEDED FOR BREATHING. SHAKE WELL. RINSE MOUTHPIECE FREQUENTLY TO PREVENT CLOGGING. 4) ASPIRIN 81MG EC TAB TAKE ONE TABLET BY MOUTH ONCE A ACTIVE (S) DAY TAKE WITH FOOD. 5) ATORVASTATIN CALCIUM 80MG TAB TAKE ONE TABLET BY ACTIVE MOUTH EVERY EVENING 6) CARBOXYMETHYLCELLULOSE NA 0.5% OPH SOLN INSTILL 1 ACTIVE DROP IN BOTH EYES FOUR TIMES A DAY NEEDED FOR DRY EYE(S) 7) CARVEDILOL 6.25MG TAB TAKE ONE-HALF TABLET BY MOUTH ACTIVE TWICE A DAY HEART FAILURE TAKE WITH FOOD. 8) CLOPIDOGREL BISULFATE 75MG TAB TAKE ONE TABLET BY ACTIVE MOUTH ONCE A DAY 9) DEXTROSE 24GM/31GM SQUEEZE TUBE TAKE 1 TUBE BY MOUTH ACTIVE NEEDED FOR LOW BLOOD SUGAR REPEAT DOSE IF HYPOGLYCEMIA CONTINUES 15 MINUTES AFTER THE FIRST DOSE. 10) DULOXETINE HCL 60MG EC CAP TAKE ONE CAPSULE BY MOUTH ACTIVE ONCE A DAY FOR NERVE PAIN DO NOT ABRUPTLY DISCONTINUE MEDICATION. 11) ERGOCALCIF 1,250MCG (D2-50,000UNIT) CAP TAKE ONE ACTIVE CAPSULE BY MOUTH WEEKLY 12) FERROUS SULFATE 325MG TAB TAKE ONE TABLET BY MOUTH ACTIVE ONCE A DAY 13) FOLIC ACID 1MG TAB TAKE ONE TABLET BY MOUTH ONCE A ACTIVE DAY 14) GLUCOSE SENSOR FREESTYLE RADHIKA 3 PLUS USE SENSOR ACTIVE EVERY 15 DAYS FOR BLOOD SUGAR MONITORING CHANGE SENSOR/SITE EVERY 15 DAYS. TO REPLACE SENSOR FOR ANY REASON OR FOR TECHNICAL HELP PLEASE CALL [facility] DESK: -SPECIFIC PHONE NUMBER: ([phone]). 15) ISOSORBIDE MONONITRATE 30MG SA TAB TAKE ONE-HALF ACTIVE TABLET BY MOUTH ONCE A DAY TAKE ON EMPTY STOMACH. SWALLOW WHOLE. DO NOT CRUSH OR CHEW. 16) MAGNESIUM OXIDE 400MG TAB TAKE ONE TABLET BY MOUTH ACTIVE TWICE A DAY 17) METFORMIN HCL 750MG 24HR SA TAB TAKE ONE TABLET BY ACTIVE MOUTH ONCE A DAY FOR BLOOD SUGAR CONTROL. TAKE WITH FOOD. AVOID ALCOHOL. DISCONTINUE BEFORE GETTING XRAY DYE. 18) METHOCARBAMOL 500MG TAB TAKE 1 TABLET BY MOUTH TWICE ACTIVE DAILY NEEDED FOR MUSCLE SPASM 19) MULTIVITAMIN CAP/TAB TAKE 1 TABLET BY MOUTH ONCE A ACTIVE DAY FOR NUTRITION/DIETARY SUPPLEMENTATION 20) NEEDLE,PEN 31G,5MM USE 1 NEEDLE UNDER THE SKIN TWICE ACTIVE A DAY FOR LONG ACTING INSULIN AND MEALTIME INSULIN 21) OMEPRAZOLE 40MG EC CAP TAKE ONE CAPSULE BY MOUTH ACTIVE EVERY MORNING TO LOWER STOMACH ACID. TAKE 30 MINUTES PRIOR TO FOOD. 22) PREGABALIN 100MG ORAL CAP TAKE ONE CAPSULE BY MOUTH ACTIVE TWICE A DAY *MAY CAUSE DROWSINESS* 23) TRANSPARENT DRESSING 2 3/8IN X 2 3/4IN USE/APPLY ACTIVE DRESSING(S) TO AFFECTED AREA(S) TWO TIMES PER WEEK FOR WOUND CARE ALLERGIES OR DRUG SENSITIVITIES: TRAMADOL DIET: low salt, diabetic ACTIVITY: Sternal precauations INFORMATION REGARDING CONDITION OR PROPER HOME AND/OR WOUND CARE: Not Applicable RETURN TO WORK: n/a DISPOSITION: [X} Discharge home [ ] Discharge to home hospice [ ] Transfer to jail [ ] Transfer to rehab [ ] Transfer to psychiatry [ ] Transfer to Spinal cord injury unit [ ] Transfer to hospice [ ] Transfer to outside facility: [ ] Transfer to outside facility under hospice: [ ] : autopsy approved by Next of Kin [ ] : autopsy not approved by Next of Kin [ ] : autopsy resulting from anode crew supervisor's case [ ] Other: COMPETENCY: [X} The patient is competent in the VA sense of the word. [ ] The patient is not competent in the VA sense of the word. TOTAL TIME SPENT FOR FINAL HOSPITAL DISCHARGE: 40 minutes. Verified BY T/CHICHI /shen/ Silvia Reddy APN,BUSINESS DEVELOPMENT MANAGER- Advanced Practice Nurse Signed: 08/23/2024 15:42 /shen/ JUDIT PERKINS PHYSICIAN CLC Cosigned: 08/28/2024 08:12 SILVIA REDDY [facility] Aug 23, 2024 09:39 AM NURSING INPATIENT NOTE: LOCAL TITLE: [facility] ACUTE INPATIENT NSG SHIFT ASSESSMENT STANDARD TITLE: NURSING INPATIENT NOTE DATE OF NOTE: AUG 23, 2024@09:39 ENTRY DATE: AUG 23, 2024@09:39:18 AUTHOR: VICTORINA SHARPE COSIGNER: URGENCY: STATUS: COMPLETED Version 2.2 Charting in accordance with ID APPROVED [place] STANDARD (IDAES) ACUTE INPATIENT/REHABILITATION NURSING ADMISSION SCREENING, ASSESSMENT, AND STANDARDS OF CARE ASSESSMENT HANDOFF Safety check completed PAIN ASSESSMENT Patient's acceptable pain goal: 0 No pain Are you currently experiencing pain? No: Pain Score: 0 MOSQU[place]A FALL SCALE & TIPS PROGRAM [place] Fall Scale: The [place] Fall scale was performed and score was 40. This is indicative of moderate risk for falls. History of falling: immediate or within 3 months? No Secondary diagnosis: Yes Ambulatory aid: Crutches/cane(s)/walker Intravenous therapy/Heparin lock: No Gait/Transferring: Weakness Mental Status: Oriented to own ability/knows own limitations ENVIRONMENTAL SAFETY MANAGEMENT Implemented safety standards of care: -[place] to unit & environment -Adequate room lighting -Bed in low and locked position -Call light within reach -Personal items within reach -Traffic path in room free of clutter -Non-slip footwear -Upper/half length side rails up for bed mobility -Sensory aids within reach -Encourage patient to utilize sensory support NEUROLOGICAL Neurological Orientation: Oriented x4 Level of Consciousness (AVPU): Alert = Appears aware of and responsive to the environment on their own. Follows commands, opens eyes spontaneously, and tracks objects. Affect/behavior: Calm NEUROMUSCULAR/NEUROVASCULAR EXTREMITIES ASSESSMENT Strength: Inclinometer Tester Bilateral: Strong Upper Extremity Bilateral: Full strength Lower Extremity Bilateral: Full strength Sensation: Upper Extremity Sensation Bilateral: Intact Lower Extremity Sensation Bilateral: Intact Temperature: Upper Extremity Temperature Bilateral: Warm Lower Extremity Temperature Bilateral: Warm CARDIOVASCULAR Heart Rate/Rhythm (without school bus monitor): Regular Capillary Refill: All 4 extremities, less than or equal to 3 seconds. Edema: None RESPIRATORY Breath Sounds Auscultated: Anterior and posterior Left Upper Lobe: Clear Right Upper Lobe: Clear Right Middle Lobe: Clear Left Lower Lobe: Clear Right Lower Lobe: Clear GASTROINTESTINAL No bowel movement reported by patient Elimination: Continent Palpation: Soft Bowel Sounds: RUQ: Active LUQ: Active RLQ: Active LLQ: Active GENITOURINARY Elimination: Continent INTEGUMENTARY/SKIN/WOUND - (INCLUDING KEYLA) SEE NOTE: VAAES SKIN INPECTION/ASSESSMENT ACTIVITIES OF DAILY LIVING Hygiene ADLs: Dressing: Upper Body: Independent Lower Body: Independent Eating: Independent Foot Care: Inspection Hand Hygiene: Performed post toileting Oral Care: Non-ventilator patient: Patient teeth brushed: Independently independently in room Pericare: Independent MOBILITY Mobility Status: Independent: Able to stand and step without staff assistance Gait: Steady PSYCHOSOCIAL Type of Emotional Support Provided: Treatment discussion, Ventilation of feelings encouraged Additional Comment: [place] ready to discharge home, no complaints of pain at this time. /shen/ AIMEE HANLEY REGISTERED NURSE Signed: 08/23/2024 09:46 VICTORINA SHARPE [facility] Aug 23, 2024 09:38 AM ADMINISTRATIVE NOTE: LOCAL TITLE: ADMINISTRATIVE STL STANDARD TITLE: ADMINISTRATIVE NOTE DATE OF NOTE: AUG 23, 2024@09:38 ENTRY DATE: AUG 23, 2024@09:39 AUTHOR: CURTIS NICHOLS EXP COSIGNER: URGENCY: STATUS: COMPLETED MADE RN PHONE GRIND APPT PER DISCHARGE ORDER /shen/ CURTIS GUTIERREZ ADVANCED MARRIAGE COUNSELOR Signed: 08/23/2024 09:41 Receipt Acknowledged By: 08/23/2024 13:41 /shen/ MARNIE MARQUIS SUPERVISORY MARRIAGE COUNSELOR CURTIS NICHOLS [facility] Aug 23, 2024 09:35 AM NURSING NOTE: LOCAL TITLE: IDAES SKIN INSPECTION/ASSESSMENT STANDARD TITLE: NURSING NOTE DATE OF NOTE: AUG 23, 2024@09:35 ENTRY DATE: AUG 23, 2024@09:36 AUTHOR: VICTORINA SHARPE COSIGNER: URGENCY: STATUS: COMPLETED Assessment Type: SKIN REINSPECTION/REASSESSMENT SKIN INSPECTION: Skin Color: Usual for ethnicity Skin Temperature: Warm Skin Moisture: Normal Skin Turgor: Elastic (normal/immediate) Keyla Skin Assessment: The patient's Keyla Scale Score is 21. The patient is considered not at risk for development of pressure ulcers/injuries. Sensory perception -- ability to respond meaningfully to pressure-related discomfort No impairment. Moisture -- degree to which skin is exposed to moisture Rarely moist. Activity -- ability to change and control body position Walks frequently. Mobility -- ability to change and control body position No limitation. Nutrition -- usual food intake patterns Adequate. Friction and shear Potential problem. INTERVENTIONS: The pressure injury interventions were not needed - patient/resident is not at risk. SKIN ALTERATIONS: Wound Documentation from the past year: Skin Assessment 08/23/2024 Skin Integrity - Wound scabbed incision wounds to mid-sternum, transverse upper abdomen, left forearm, 08/22/2024 Skin Integrity - Wound scabbed incision wounds to mid-sternum, transverse upper abdomen, left forearm, chest 08/21/2024 Skin Integrity - Wound 08/20/2024 Skin Integrity - Wound 08/19/2024 Skin Integrity - Wound Mid chest: skin well approximated, CDI; 08/19/2024 Skin Integrity - Wound sternal incision, left chest pacemaker incision, left forearm 08/19/2024 Skin Integrity - Wound sternal incision,left chest pacemaker incision,left forearm 08/18/2024 Skin Integrity - Wound sternal incision, left forearm, left chest pacer site-steri strips, abdominal incision 08/17/2024 Skin Integrity - Wound glued incisions to mid-sternum, transverse upper abdomen, left forearm, left chest pacer site 08/16/2024 Skin Integrity - Wound sternal incision, chest tube abdomen,left forearm 08/16/2024 Skin Integrity - Wound incisions glued/DE ALCOHOLIZER-mid sternal, transverse upper abdomen, left chest pacer, left forearm 08/16/2024 Skin Integrity - Wound chest midline, transverse upper abdomen, left chest pacer, left forearm 08/15/2024 Skin Integrity - Wound sternal incision, transverse upper abdomen, left forearm 08/14/2024 Skin Integrity - Wound 08/14/2024 Skin Integrity - Wound mis sternal incision/transverse abdominal incision,left pacemaker incision,left forearm incision 08/13/2024 Skin Integrity - Wound mid-sternal incision, transverse abdominal incision, left forearm incision, left chest pacer site 08/12/2024 Skin Integrity - Wound mid-sternal incision 08/11/2024 Skin Integrity - Wound m 08/11/2024 Skin Integrity - Wound Wound - other than pressure ulcer/injury (includes open surgical wounds/incisions): Location: mid sternum No Edema Wound drainage none. /shen/ AIMEE HANLEY REGISTERED NURSE Signed: 08/23/2024 09:37 VICTORINA SHARPE [facility] Aug 23, 2024 03:38 AM NURSING INPATIENT NOTE: LOCAL TITLE: [facility] NURSING FREQUENT DOCUMENTATION STANDARD TITLE: NURSING INPATIENT NOTE DATE OF NOTE: AUG 23, 2024@03:38 ENTRY DATE: AUG 23, 2024@03:39:07 AUTHOR: YVONNE PHILLIP COSIGNER: URGENCY: STATUS: COMPLETED Version 2.4 Charting in accordance with [facility] STANDARD (IDAES) ACUTE INPATIENT/REHABILITATION NURSING ADMISSION SCREENING, ASSESSMENT, AND STANDARDS OF CARE GASTROINTESTINAL Last bowel movement: 08/23/2024 Elimination: /shen/ YVONNE PHILLIP SEASONAL CLERK CERTIFIED NURSES ELECTRIC POWER MACHINE OPERATOR Signed: 08/23/2024 03:39 YVONNE PHILLIP [facility] Aug 23, 2024 03:25 AM NURSING INPATIENT NOTE: LOCAL TITLE: MINDY PATIENT SAFETY CHECK STL STANDARD TITLE: NURSING INPATIENT NOTE DATE OF NOTE: AUG 23, 2024@03:25 ENTRY DATE: AUG 23, 2024@03:25:23 AUTHOR: JOSSELINE ANNA EXP COSIGNER: URGENCY: STATUS: COMPLETED BEDSIDE SAFETY CHECK STL A visual sweep of the patient's room for any physical or environmental safety concerns was completed and education provided to patient regarding their personal safety concerns. /shen/ JOSSELINE ANNA REGISTERED NURSE Signed: 08/23/2024 03:25 JOSSELINE ANNA [facility] Aug 23, 2024 12:34 AM NURSING NOTE: LOCAL TITLE: VAAES SKIN INSPECTION/ASSESSMENT STANDARD TITLE: NURSING NOTE DATE OF NOTE: AUG 23, 2024@00:34 ENTRY DATE: AUG 23, 2024@00:34:54 AUTHOR: JOSSELINE ANNA EXP COSIGNER: URGENCY: STATUS: COMPLETED Assessment Type: SKIN REINSPECTION/REASSESSMENT SKIN INSPECTION: Skin Color: Usual for ethnicity Skin Temperature: Warm Skin Moisture: Normal Skin Turgor: Elastic (normal/immediate) Keyla Skin Assessment: The patient's Keyla Scale Score is 18. The patient is at mild risk for development of pressure ulcer/injury. Sensory perception -- ability to respond meaningfully to pressure-related discomfort Slightly limited. Moisture -- degree to which skin is exposed to moisture Occasionally moist. Activity -- ability to change and control body position Walks occasionally. Mobility -- ability to change and control body position Slightly limited. Nutrition -- usual food intake patterns Adequate. Friction and shear No apparent problem. INTERVENTIONS: No change in previous interventions as listed below Pressure Ulcer-Education 08/21/2024 Educate Importance Of Changing Position Provide Education On Cause/Prevention Provide Education Regarding Tx Plan Pressure Ulcer-Friction/Shear 08/21/2024 Head of Bed Below 30 Degrees When Not Eating 08/11/2024 Elevate Head of Bed For Meals Pressure Ulcer-Moisture 08/21/2024 Instruct Pt/Family To Request Assistance Maintain Clean Dry Skin No More Than 1 Linen Layer Pressure Ulcer-Nutrition 08/21/2024 Provide/Encourage Oral Care As Needed Pressure Ulcer-Pressure Reducing 08/21/2024 Turn To Side Less Than 30 Degrees 08/11/2024 Frequent Position Changes Pressure Ulcer-Remobilize 08/21/2024 Encourage Activity As Tolerated Vaaes Pressure Injury Interventions 08/21/2024 Vaaes Pressure Injury Int Not Needed SKIN ALTERATIONS: Wound Documentation from the past year: Skin Assessment 08/22/2024 Skin Integrity - Wound scabbed incision wounds to mid-sternum, transverse upper abdomen, left forearm, chest 08/21/2024 Skin Integrity - Wound 08/20/2024 Skin Integrity - Wound 08/19/2024 Skin Integrity - Wound Mid chest: skin well approximated, CDI; 08/19/2024 Skin Integrity - Wound sternal incision, left chest pacemaker incision, left forearm 08/19/2024 Skin Integrity - Wound sternal incision,left chest pacemaker incision,left forearm 08/18/2024 Skin Integrity - Wound sternal incision, left forearm, left chest pacer site-steri strips, abdominal incision 08/17/2024 Skin Integrity - Wound glued incisions to mid-sternum, transverse upper abdomen, left forearm, left chest pacer site 08/16/2024 Skin Integrity - Wound sternal incision, chest tube abdomen,left forearm 08/16/2024 Skin Integrity - Wound incisions glued/COSMO-mid sternal, transverse upper abdomen, left chest pacer, left forearm 08/16/2024 Skin Integrity - Wound chest midline, transverse upper abdomen, left chest pacer, left forearm 08/15/2024 Skin Integrity - Wound sternal incision, transverse upper abdomen, left forearm 08/14/2024 Skin Integrity - Wound 08/14/2024 Skin Integrity - Wound mis sternal incision/transverse abdominal incision,left pacemaker incision,left forearm incision 08/13/2024 Skin Integrity - Wound mid-sternal incision, transverse abdominal incision, left forearm incision, left chest pacer site 08/12/2024 Skin Integrity - Wound mid-sternal incision 08/11/2024 Skin Integrity - Wound m 08/11/2024 Skin Integrity - Wound Wound - other than pressure ulcer/injury (includes open surgical wounds/incisions): Location: scabbed incision wounds to mid-sternum, transverse upper abdomen, left forearm, No Edema Wound drainage none. /shen/ JOSSELINE ANNA REGISTERED NURSE Signed: 08/23/2024 00:[address] [facility] Aug 23, 2024 12:28 AM NURSING INPATIENT NOTE: LOCAL TITLE: IDAES ACUTE INPATIENT NSG SHIFT ASSESSMENT STANDARD TITLE: NURSING INPATIENT NOTE DATE OF NOTE: AUG 23, 2024@00:28 ENTRY DATE: AUG 23, 2024@00:28:33 AUTHOR: JOSSELINE ANNA EXP COSIGNER: URGENCY: STATUS: COMPLETED Version 2.2 Charting in accordance with [facility] STANDARD (IDAES) ACUTE INPATIENT/REHABILITATION NURSING ADMISSION SCREENING, ASSESSMENT, AND STANDARDS OF CARE ASSESSMENT HANDOFF Safety check completed PAIN ASSESSMENT Patient's acceptable pain goal: Are you currently experiencing pain? No: MOSQUEDA FALL SCALE & TIPS PROGRAM Mosqueda Fall Scale: The Mosqueda Fall scale was performed and score was 30. This is indicative of moderate risk for falls. History of falling: immediate or within 3 months? No Secondary diagnosis: Yes Ambulatory aid: Crutches/cane(s)/walker Intravenous therapy/Heparin lock: No Gait/Transferring: Normal/bed rest/immobile Mental Status: Oriented to own ability/knows own limitations Fall Tailoring Interventions for Patient Safety (TIPS) Fall TIPS reviewed with patient: Yes Interventions: Walking Aids: Walker ENVIRONMENTAL SAFETY MANAGEMENT Implemented safety standards of care: -[place] to unit & environment -Adequate room lighting -Bed in low and locked position -Call light within reach -Personal items within reach -Traffic path in room free of clutter -Non-slip footwear -Upper/half length side rails up for bed mobility -Sensory aids within reach -Encourage patient to utilize sensory support NEUROLOGICAL Neurological Orientation: Oriented x4 Level of Consciousness (AVPU): Alert = Appears aware of and responsive to the environment on their own. Follows commands, opens eyes spontaneously, and tracks objects. Affect/behavior: Cooperative Calm CARDIOVASCULAR Heart Rate/Rhythm (without school bus monitor): Regular Capillary Refill: All 4 extremities, less than or equal to 3 seconds. Edema: None RESPIRATORY Respirations: Unlabored Pattern: Regular GASTROINTESTINAL Last bowel movement: 08/22/2024 Elimination: Continent Palpation: Soft, Non-tender GENITOURINARY Elimination: Continent INTEGUMENTARY/SKIN/WOUND - (INCLUDING KEYLA) SEE NOTE: VAAES SKIN INPECTION/ASSESSMENT ACTIVITIES OF DAILY LIVING Hygiene ADLs: Oral Care: Non-ventilator patient: Patient teeth brushed: With assistance The was educated that poor oral hygiene increases the risk of hospital acquired pneumonia and dental problems like gingivitis and tooth decay. was educated using their preferred method and verbalized understanding. MOBILITY Mobility Status: Minimum assist: Stands with support only (Unsteady or requires verbal cueing) Equipment utilized: Walker Gait: Steady PSYCHOSOCIAL Type of Emotional Support Provided: 1:1 discussion, Anticipated outcomes, Ventilation of feelings farooq /shen/ JOSSELINE ANNA REGISTERED NURSE Signed: 08/23/2024 00:34 JOSSELINE ANNA [facility] Aug 23, 2024 12:15 AM FOUNDATION DIRECTOR CARE NOTE: LOCAL TITLE: CLC ADL NOTE STL STANDARD TITLE: FOUNDATION DIRECTOR CARE NOTE DATE OF NOTE: AUG 23, 2024@00:15 ENTRY DATE: AUG 23, 2024@00:15:15 AUTHOR: YVONNE PHILLIP COSIGNER: URGENCY: STATUS: COMPLETED Geophysical Support SpecialistJava Development Manager Note Resident Name: CHET WALKER Facility: [facility] Neighborhood: [address] [place] Tour: 08/22/2024 07:00 PM - 08/23/2024 07:30 AM ADL Items: BED MOBILITY: Self: Independent Support: No setup or physical help from staff. Entered By: YVONNE PHILLIP At: 08/23/2024 12:12 AM TRANSFER: Self: Independent Support: No setup or physical help from staff. Entered By: YVONNE PHILLIP At: 08/23/2024 12:12 AM WALK IN ROOM: Self: Independent Support: No setup or physical help from staff. Entered By: YVONNE PHILLIP At: 08/23/2024 12:12 AM WALK IN CORRIDOR: Self: Activity Did Not Occur Support: ADL activity itself did not occur. Entered By: YVONNE PHILLIP At: 08/23/2024 12:12 AM LOCOMOTION ON UNIT: Self: Activity Did Not Occur Support: ADL activity itself did not occur. Entered By: YVONNE PHILLIP At: 08/23/2024 12:12 AM LOCOMOTION OFF UNIT: Self: Activity Did Not Occur Support: ADL activity itself did not occur. Entered By: YVONNE PHILLIP At: 08/23/2024 12:12 AM DRESSING: Self: Independent Support: No setup or physical help from staff. Entered By: YVONNE PHILLIP At: 08/23/2024 12:12 AM EATING: Self: Independent Support: No setup or physical help from staff. Entered By: YVONNE PHILLIP At: 08/23/2024 12:12 AM TOILETING: Self: Independent Support: No setup or physical help from staff. Entered By: YVONNE PHILLIP At: 08/23/2024 12:12 AM HYGIENE: Self: Independent Support: No setup or physical help from staff. Entered By: YVONNE PHILLIP At: 08/23/2024 12:12 AM BATHING: Self: Activity Did Not Occur Support: ADL activity itself did not occur. Entered By: YVONNE PHILLIP At: 08/23/2024 12:12 AM Events: ROUNDING: Entered By: YVONNE PHILLIP At: 08/23/2024 12:13 AM Start Hour: 12 AM Locations: Bed in Room Room Environment: Cords Secure, Lights, No Obstructions, Call Light Within Reach, Personal Items Within Reach, Bed Height Check Safety Equipment: Low Position Bed, Non-Skid Footwear, Side Rails - Left, Side Rails - Right Comfort Status: Sleeping Position: Back Side Reposition Hours: 2 Reposition Refused: No NUTRITION: Entered By: YVONNE PHILLIP At: 08/23/2024 12:13 AM Meal: Snack Method: PO Location: Bedside Amount: 100% FLUIDS: Entered By: YVONNE PHILLIP At: 08/23/2024 12:13 AM Fluid Type: Water Amount: 200 ml MOOD, BEHAVIORAL & COGNITIVE: Entered By: YVONNE PHILLIP At: 08/23/2024 12:13 AM Mood Observation: Happy/Content Behavioral: Pleasant/Cooperative Cognitive: Alert & Oriented Significant Change: No MOBILITY: Entered By: YVONNE PHILLIP At: 08/23/2024 12:14 AM Out of Bed: Independent Devices: Manual Wheelchair, Two-Wheeled Walker Bed Rest: No BLADDER: Entered By: YVONNE PHILLIP At: 08/23/2024 12:14 AM No Urinary Output: No # of Times: 3 Scheduled: No Continence: Continent Appliances: Toilet, Urinal Volume: 0 cc/ml Urine Descriptions: Light Yellow BOWEL: Entered By: YVONNE PHILLIP At: 08/23/2024 12:14 AM No Bowel Movement: No # of Times: 1 Scheduled: No Independent: Yes Continence: Continent Appliances: Toilet Size: BM Output - Medium Texture: Formed BATHING & ORAL CARE: Entered By: YVONNE PHILLIP At: 08/23/2024 12:14 AM Attire: Zofia/Cinthya Oral Care: Independent Oral Education Provided: No Types of Oral Care Provided: [place] All Oral Surfaces /shen/ YVONNE MANZANARESA CERTIFIED NURSES ELECTRIC POWER MACHINE OPERATOR Signed: 08/23/2024 00:15 YVONNE PHILLIP [facility] Aug 22, 2024 06:19 PM NURSING INPATIENT NOTE: LOCAL TITLE: [facility] NURSING FREQUENT DOCUMENTATION STANDARD TITLE: NURSING INPATIENT NOTE DATE OF NOTE: AUG 22, 2024@18:19 ENTRY DATE: AUG 22, 2024@18:19:54 AUTHOR: MARCIE LEE EXP COSIGNER: URGENCY: STATUS: COMPLETED [facility] NURSING FREQUENT DOCUMENTATION Has ADDENDA Version 2.4 Charting in accordance with [facility] STANDARD (IDAES) ACUTE INPATIENT/REHABILITATION NURSING ADMISSION SCREENING, ASSESSMENT, AND STANDARDS OF CARE GASTROINTESTINAL Stool: Description: Liquid,chunky Color: light brown Amount: Medium Elimination: Continent stool #1 sent for occult blood /es/ MARCIE LEE RN REGISTERED NURSE Signed: 08/22/2024 18:22 Receipt Acknowledged By: 08/23/2024 09:12 /es/ Silvia Reddy APN,[facility] Advanced Practice Nurse 08/22/2024 ADDENDUM STATUS: COMPLETED stool #2 obtained and sent /shen/ MARCIE LEE RN REGISTERED NURSE Signed: 08/22/2024 19:28 MARCIE LEE [facility] Aug 22, 2024 03:26 PM NURSING NOTE: LOCAL TITLE: [facility] SKIN INSPECTION/ASSESSMENT STANDARD TITLE: NURSING NOTE DATE OF NOTE: AUG 22, 2024@15:26 ENTRY DATE: AUG 22, 2024@15:27:03 AUTHOR: MARCIE LEE EXP COSIGNER: URGENCY: STATUS: COMPLETED Assessment Type: SKIN REINSPECTION/REASSESSMENT SKIN INSPECTION: Skin Color: Usual for ethnicity Skin Temperature: Warm Skin Moisture: Normal Skin Turgor: Elastic (normal/immediate) Keyla Skin Assessment: The patient's Keyla Scale Score is 19. The patient is considered not at risk for development of pressure ulcers/injuries. Sensory perception -- ability to respond meaningfully to pressure-related discomfort Slightly limited. Moisture -- degree to which skin is exposed to moisture Rarely moist. Activity -- ability to change and control body position Walks occasionally. Mobility -- ability to change and control body position Slightly limited. Nutrition -- usual food intake patterns Adequate. Friction and shear No apparent problem. INTERVENTIONS: No change in previous interventions as listed below Pressure Ulcer-Education 08/21/2024 Educate Importance Of Changing Position Provide Education On Cause/Prevention Provide Education Regarding Tx Plan Pressure Ulcer-Friction/Shear 08/21/2024 Head of Bed Below 30 Degrees When Not Eating 08/11/2024 Elevate Head of Bed For Meals Pressure Ulcer-Moisture 08/21/2024 Instruct Pt/Family To Request Assistance Maintain Clean Dry Skin No More Than 1 Linen Layer Pressure Ulcer-Nutrition 08/21/2024 Provide/Encourage Oral Care As Needed Pressure Ulcer-Pressure Reducing 08/21/2024 Turn To Side Less Than 30 Degrees 08/11/2024 Frequent Position Changes Pressure Ulcer-Remobilize 08/21/2024 Encourage Activity As Tolerated Vaaes Pressure Injury Interventions 08/21/2024 Vaaes Pressure Injury Int Not Needed RISK FACTORS THAT INCREASE RISK FOR DEVELOPING PRESSURE INJURIES The patient/resident does not have any additional risk factors. Wound - other than pressure ulcer/injury (includes open surgical wounds/incisions): Location: scabbed incision wounds to mid-sternum, transverse upper abdomen, left forearm, chest-all DE ALCOHOLIZER No Edema Wound drainage none. /es/ MARCIE LEE RN REGISTERED NURSE Signed: 08/22/2024 15:30 MARCIE LEE [facility] Aug 22, 2024 01:57 PM NONVA NOTE: LOCAL TITLE: COMMUNITY CARE-CARE COORDINATION PLAN NOTE 657 STL STANDARD TITLE: NONVA NOTE DATE OF NOTE: AUG 22, 2024@13:57 ENTRY DATE: AUG 22, 2024@13:57:56 AUTHOR: IZZY CHANDLER EXP COSIGNER: URGENCY: STATUS: COMPLETED THE PATIENT HAS BEEN REFERRED TO THE FOLLOWING SERVICES HOME CARE SERVICES: Community skilled home health care SN/WC - in accordance with ID Standardized Episode of Care (SEOC) HOME CARE SERVICE FUNDING: VA: [facility] NAME OF AGENCY TO PROVIDE CARE: [facility] [id number] [place] [address] DURATION OF CARE (Non-Hospice Services): 120 DAYS OR WHENEVER PATIENT GOALS ARE MET, WHICHEVER COMES FIRST Date service is projected to start: 08/23/24 End service date: 10/23/24 ([facility] consults terminate automatically after 120 days) *Please send all correspondence/orders to be signed to: Provider name: Rafi Phone number: [phone] Fax number: [phone] PLAN: New Services-Transition to Skilled Home Health Services. Helpful phone numbers: [facility] Janitorial Assistant [facility] Email: [facility]ITALommunSt[facility] /es/ IZZY CHANDLER RN Patient Care Service, Care in the Community Unit Signed: 08/22/2024 14:10 IZZY CHANDLER Teodora CRISOSTOMO [facility] Aug 22, 2024 01:44 PM FOUNDATION DIRECTOR CARE NOTE: LOCAL TITLE: CLC ADL NOTE ST STANDARD TITLE: FOUNDATION DIRECTOR CARE NOTE DATE OF NOTE: AUG 22, 2024@13:44 ENTRY DATE: AUG 22, 2024@13:44:09 AUTHOR: AALIYAH MARTINEZ EXP COSIGNER: URGENCY: STATUS: COMPLETED CLC ADL NOTE STL Has ADDENDA Geophysical Support SpecialistJava Development Manager Note Resident Name: CHET WALKER Facility: [facility] Neighborhood: [address] [facility] Tour: 08/22/2024 01:15 PM - 08/22/2024 09:15 PM ADL Items: BED MOBILITY: Self: Independent Support: No setup or physical help from staff. Entered By: Aaliyah Martinez At: 08/22/2024 1:41 PM TRANSFER: Self: Independent Support: No setup or physical help from staff. Entered By: Aaliyah Martinez At: 08/22/2024 1:41 PM WALK IN ROOM: Self: Independent Support: No setup or physical help from staff. Entered By: Aaliyah Martinez At: 08/22/2024 1:41 PM WALK IN CORRIDOR: Self: Independent Support: No setup or physical help from staff. Entered By: Aaliyah Martinez At: 08/22/2024 1:41 PM LOCOMOTION ON UNIT: Self: Limited Assistance Support: One person physical assistance. Entered By: Aaliyah Martinez At: 08/22/2024 1:41 PM LOCOMOTION OFF UNIT: Self: Limited Assistance Support: One person physical assistance. Entered By: Aaliyah Martinez At: 08/22/2024 1:41 PM DRESSING: Self: Independent Support: No setup or physical help from staff. Entered By: Aaliyah Martinez At: 08/22/2024 1:41 PM EATING: Self: Independent Support: No setup or physical help from staff. Entered By: Aaliyah Martinez At: 08/22/2024 1:41 PM TOILETING: Self: Independent Support: No setup or physical help from staff. Entered By: Aaliyah Martinez At: 08/22/2024 1:42 PM HYGIENE: Self: Independent Support: No setup or physical help from staff. Entered By: Aaliyah Martinez At: 08/22/2024 1:42 PM BATHING: Self: Supervision Support: Setup help only. Entered By: Aaliyah Martinez At: 08/22/2024 1:42 PM Events: ROUNDING: Entered By: Aaliyah Martinez At: 08/22/2024 1:42 PM Start Hour: 1 PM Comfort Status: Sleeping, Hydration, Toileting, Awake NUTRITION: Entered By: Aaliyah Martinez At: 08/22/2024 1:42 PM Meal: Breakfast Method: PO Location: Bedside Amount: 100% MOOD, BEHAVIORAL & COGNITIVE: Entered By: Aaliyah Martinez At: 08/22/2024 1:42 PM Mood Observation: Happy/Content Behavioral: Pleasant/Cooperative Cognitive: Alert & Oriented Significant Change: No MOBILITY: Entered By: Aaliyah Martinez At: 08/22/2024 1:43 PM Out of Bed: Independent Devices: Manual Wheelchair, Two-Wheeled Walker Bed Rest: No BLADDER: Entered By: Aaliyah Martinez At: 08/22/2024 1:43 PM No Urinary Output: No # of Times: 0 Scheduled: No Continence: Continent Appliances: Toilet, Urinal Volume: 0 cc/ml BOWEL: Entered By: Aaliyah Martinez At: 08/22/2024 1:43 PM No Bowel Movement: Yes # of Times: 0 Scheduled: No Independent: No BATHING & ORAL CARE: Entered By: Aaliyah Martinez At: 08/22/2024 1:43 PM Attire: Personal Attire Oral Care: Independent Oral Education Provided: No Dental Condition: Edentulous /shen/ AALIYAH MARTINEZ CNA LANDSCAPER HELPER Signed: 08/22/2024 13:44 08/22/2024 ADDENDUM STATUS: COMPLETED consumed dinner 100% last bm 08/22/24 /camryn MARTINEZ CNA LANDSCAPER HELPER Signed: 08/22/2024 18:25 AALIYAH MARTINEZ [facility] Aug 22, 2024 12:00 PM NURSING INPATIENT NOTE: LOCAL TITLE: [facility] NURSING FREQUENT DOCUMENTATION STANDARD TITLE: NURSING INPATIENT NOTE DATE OF NOTE: AUG 22, 2024@12:00 ENTRY DATE: AUG 22, 2024@15:22:45 AUTHOR: MARCIE LEE EXP COSIGNER: URGENCY: STATUS: COMPLETED Version 2.4 Charting in accordance with ID APPROVED [place] STANDARD (IDAES) ACUTE INPATIENT/REHABILITATION NURSING ADMISSION SCREENING, ASSESSMENT, AND STANDARDS OF CARE GASTROINTESTINAL Last bowel movement: 08/22/24 Bowel movement reported by patient-unwitnessed Elimination: Continent /shen/ MARCIE LEE RN REGISTERED NURSE Signed: 08/22/2024 15:23 MARCIE LEE [facility] Aug 22, 2024 10:43 AM NURSING INPATIENT NOTE: LOCAL TITLE: VAAES NURSING FREQUENT DOCUMENTATION STANDARD TITLE: NURSING INPATIENT NOTE DATE OF NOTE: AUG 22, 2024@10:43 ENTRY DATE: AUG 22, 2024@10:44:02 AUTHOR: MARCIE LEE EXP COSIGNER: URGENCY: STATUS: COMPLETED Version 2.4 Charting in accordance with [facility] [place] STANDARD (IDAES) ACUTE INPATIENT/REHABILITATION NURSING ADMISSION SCREENING, ASSESSMENT, AND STANDARDS OF CARE NATIONAL EARLY WARNING SCORE (NEWS) The following vital measurements were used to complete the NEWS. Measurement DT TEMP PULSE RESP BP POx F(C) (L/MIN)(%) 08/22/2024 10:30 98.1(36.7) 55 18 104/61 96 The NEWS total is 0. 1. Temperature (C/F): Score = 0 36.1 - 38.0 C (96.9 - 100.4 F) 2. Pulse: Score = 0 51-90 3. Respirations: Score = 0 12-20 4. Blood Pressure (Only Systolic BP, mmHg): Score = 0 111-219 5. Pulse Oximetry: Score = 0 96% or greater 6. Supplemental oxygen in use: Score = 0 No 7. AVPU: Score = 0 Alert /es/ MARCIE LEERN REGISTERED NURSE Signed: 08/22/2024 10:45 MARCIE LEE [facility] Aug 22, 2024 10:16 AM NURSING INPATIENT NOTE: LOCAL TITLE: [facility] ACUTE INPATIENT NSG SHIFT ASSESSMENT STANDARD TITLE: NURSING INPATIENT NOTE DATE OF NOTE: AUG 22, 2024@10:16 ENTRY DATE: AUG 22, 2024@10:17:12 AUTHOR: MARCIE LEE EXP COSIGNER: URGENCY: STATUS: COMPLETED Version 2.2 Charting in accordance with ID APPROVED [place] STANDARD (IDAES) ACUTE INPATIENT/REHABILITATION NURSING ADMISSION SCREENING, ASSESSMENT, AND STANDARDS OF CARE ASSESSMENT PAIN ASSESSMENT Patient's acceptable pain goal: Are you currently experiencing pain? No: MOSQUEDA FALL SCALE & TIPS PROGRAM Mos[place] Fall Scale: The Mos[place] Fall scale was performed and score was 40. This is indicative of moderate risk for falls. History of falling: immediate or within 3 months? No Secondary diagnosis: Yes Ambulatory aid: Crutches/cane(s)/walker Intravenous therapy/Heparin lock: No Gait/Transferring: Weakness Mental Status: Oriented to own ability/knows own limitations Fall Tailoring Interventions for Patient Safety (TIPS) Fall TIPS reviewed with patient: Yes Interventions: Assistance out of bed: Call for assistance before getting out of bed ENVIRONMENTAL SAFETY MANAGEMENT Implemented safety standards of care: -[place] to unit & environment -Adequate room lighting -Bed in low and locked position -Call light within reach -Personal items within reach -Traffic path in room free of clutter -Non-slip footwear -Upper/half length side rails up for bed mobility -Sensory aids within reach -Encourage patient to utilize sensory support NEUROLOGICAL Neurological Orientation: Oriented x4 Level of Consciousness (AVPU): Alert = Appears aware of and responsive to the environment on their own. Follows commands, opens eyes spontaneously, and tracks objects. Affect/behavior: Cooperative Calm NEUROMUSCULAR/NEUROVASCULAR EXTREMITIES ASSESSMENT Strength: Inclinometer Tester Bilateral: Strong Upper Extremity Bilateral: Full strength Lower Extremity Bilateral: Full strength Sensation: Upper Extremity Sensation Bilateral: Intact Lower Extremity Sensation Bilateral: Intact Temperature: Upper Extremity Temperature Bilateral: Warm Lower Extremity Temperature Bilateral: Warm CARDIOVASCULAR Heart Rate/Rhythm (without school bus monitor): Regular Capillary Refill: All 4 extremities, less than or equal to 3 seconds. Peripheral Pulses: All 4 extremities, 3+ normal. Edema: None RESPIRATORY Respirations: Unlabored Pattern: Regular Breath Sounds Auscultated: Left Upper Lobe: Clear Right Upper Lobe: Clear Right Middle Lobe: Clear Left Lower Lobe: Clear Right Lower Lobe: Clear GASTROINTESTINAL Elimination: Continent Palpation: Soft, Non-tender GENITOURINARY Elimination: Continent INTEGUMENTARY/SKIN/WOUND - (INCLUDING KEYLA) SEE NOTE: VAAES SKIN INPECTION/ASSESSMENT MOBILITY Mobility Status: Minimum assist: Stands with support only (Unsteady or requires verbal cueing) Equipment utilized: Walker Gait: Steady PSYCHOSOCIAL Type of Emotional Support Provided: Treatment discussion ADULT EDUCATION Comment: discussed meds /es/ MARCIE LEE RN REGISTERED NURSE Signed: 08/22/2024 10:21 MARCIE LEE [facility] Aug 22, 2024 03:15 AM NURSING INPATIENT NOTE: LOCAL TITLE: [facility] PATIENT SAFETY CHECK STL STANDARD TITLE: NURSING INPATIENT NOTE DATE OF NOTE: AUG 22, 2024@03:15 ENTRY DATE: AUG 22, 2024@05:20:22 AUTHOR: TARIQ MICHAUD EXP COSIGNER: URGENCY: STATUS: COMPLETED BEDSIDE SAFETY CHECK STL A visual sweep of the patient's room for any physical or environmental safety concerns was completed and education provided to patient regarding their personal safety concerns. /shen/ TARIQ YU RN REGISTERED NURSE Signed: 08/22/2024 05:20 TARIQ MICHAUD [facility] Aug 22, 2024 12:30 AM SNF CARE NOTE: LOCAL TITLE: [facility] ADL NOTE STL STANDARD TITLE: FOUNDATION DIRECTOR CARE NOTE DATE OF NOTE: AUG 22, 2024@00:30 ENTRY DATE: AUG 22, 2024@00:30:25 AUTHOR: YVONNE PHILLIP EXP COSIGNER: URGENCY: STATUS: COMPLETED Geophysical Support SpecialistJava Development Manager Note Resident Name: CHET WALKER Facility: [facility] Neighborhood: [address] [place] Tour: 08/21/2024 07:00 PM - 08/22/2024 07:30 AM ADL Items: BED MOBILITY: Self: Independent Support: No setup or physical help from staff. Entered By: YVONNE PHILLIP At: 08/22/2024 12:27 AM TRANSFER: Self: Independent Support: No setup or physical help from staff. Entered By: YVONNE PHILLIP At: 08/22/2024 12:27 AM WALK IN ROOM: Self: Independent Support: No setup or physical help from staff. Entered By: YVONNE PHILLIP At: 08/22/2024 12:27 AM WALK IN CORRIDOR: Self: Activity Did Not Occur Support: ADL activity itself did not occur. Entered By: YVONNE PHILLIP At: 08/22/2024 12:27 AM LOCOMOTION ON UNIT: Self: Activity Did Not Occur Support: ADL activity itself did not occur. Entered By: YVONNE PHILLIP At: 08/22/2024 12:27 AM LOCOMOTION OFF UNIT: Self: Activity Did Not Occur Support: ADL activity itself did not occur. Entered By: YVONNE PHILLIP At: 08/22/2024 12:27 AM DRESSING: Self: Independent Support: No setup or physical help from staff. Entered By: YVONNE PHILLIP At: 08/22/2024 12:27 AM EATING: Self: Independent Support: No setup or physical help from staff. Entered By: YVONNE PHILLIP At: 08/22/2024 12:27 AM TOILETING: Self: Independent Support: No setup or physical help from staff. Entered By: YVONNE PHILLIP At: 08/22/2024 12:27 AM HYGIENE: Self: Independent Support: No setup or physical help from staff. Entered By: YVONNE PHILLIP At: 08/22/2024 12:28 AM BATHING: Self: Activity Did Not Occur Support: ADL activity itself did not occur. Entered By: YVONNE PHILLIP At: 08/22/2024 12:28 AM Events: ROUNDING: Entered By: YVONNE PHILLIP At: 08/22/2024 12:28 AM Start Hour: 12 AM Locations: Bed in Room Room Environment: Cords Secure, Lights, No Obstructions, Call Light Within Reach, Personal Items Within Reach, Bed Height Check Safety Equipment: Low Position Bed, Non-Skid Footwear, Side Rails - Left, Side Rails - Right Comfort Status: Sleeping Position: Back Side Reposition Hours: 2 Reposition Refused: No NUTRITION: Entered By: YVONNE PHILLIP At: 08/22/2024 12:29 AM Meal: Snack Method: PO Location: Bedside Amount: 100% FLUIDS: Entered By: YVONNE PHILLIP At: 08/22/2024 12:29 AM Fluid Type: Water Amount: 200 ml MOOD, BEHAVIORAL & COGNITIVE: Entered By: YVONNE PHILLIP At: 08/22/2024 12:29 AM Mood Observation: Happy/Content Behavioral: Pleasant/Cooperative Cognitive: Alert & Oriented Significant Change: No MOBILITY: Entered By: YVONNE PHILLIP At: 08/22/2024 12:29 AM Devices: Manual Wheelchair, Two-Wheeled Walker Bed Rest: No BLADDER: Entered By: YVONNE PHILLIP At: 08/22/2024 12:29 AM No Urinary Output: No # of Times: 3 Scheduled: No Continence: Continent Appliances: Toilet Volume: 0 cc/ml Urine Descriptions: Light Yellow BOWEL: Entered By: YVONNE PHILLIP At: 08/22/2024 12:29 AM No Bowel Movement: Yes # of Times: 0 Scheduled: No Independent: No BATHING & ORAL CARE: Entered By: YVONNE PHILLIP At: 08/22/2024 12:30 AM Attire: Zofia/Cinthya Oral Care: Independent Oral Education Provided: No Types of Oral Care Provided: [place]run All Oral Surfaces /shen/ YVONNE PHILLIP SEASONAL CLERK CERTIFIED NURSES ELECTRIC POWER MACHINE OPERATOR Signed: 08/22/2024 00:30 YVONNE PHILLIP [facility] Aug 21, 2024 10:00 PM NURSING NOTE: LOCAL TITLE: [facility] SKIN INSPECTION/ASSESSMENT STANDARD TITLE: NURSING NOTE DATE OF NOTE: AUG 21, 2024@22:00 ENTRY DATE: AUG 21, 2024@23:42:02 AUTHOR: TARIQ MICHAUD EXP COSIGNER: URGENCY: STATUS: COMPLETED Assessment Type: SKIN REINSPECTION/REASSESSMENT SKIN INSPECTION: Skin Color: Usual for ethnicity Skin Temperature: Warm Skin Moisture: Normal Skin Turgor: Elastic (normal/immediate) Keyla Skin Assessment: The patient's Keyla Scale Score is 21. The patient is considered not at risk for development of pressure ulcers/injuries. Sensory perception -- ability to respond meaningfully to pressure-related discomfort No impairment. Moisture -- degree to which skin is exposed to moisture Rarely moist. Activity -- ability to change and control body position Walks occasionally. Mobility -- ability to change and control body position No limitation. Nutrition -- usual food intake patterns Adequate. Friction and shear No apparent problem. INTERVENTIONS: The pressure injury interventions were not needed - patient/resident is not at risk. SKIN/WOUND DRESSING: Location(s): sternal incision, (L) forearm, (L) chest pacemaker Clean Dry Intact Open to air /es/ TARIQ MICHAUD BSN RN REGISTERED NURSE Signed: 08/21/2024 23:44 TARIQ MICHAUD [facility] Aug 21, 2024 10:00 PM NURSING INPATIENT NOTE: LOCAL TITLE: [facility] ACUTE INPATIENT NSG SHIFT ASSESSMENT STANDARD TITLE: NURSING INPATIENT NOTE DATE OF NOTE: AUG 21, 2024@22:00 ENTRY DATE: AUG 21, 2024@23:33:49 AUTHOR: TARIQ MICHAUD EXP COSIGNER: URGENCY: STATUS: COMPLETED Version 2.2 Charting in accordance with ID APPROVED [place] STANDARD (IDAES) ACUTE INPATIENT/REHABILITATION NURSING ADMISSION SCREENING, ASSESSMENT, AND STANDARD OF CARE ASSESSMENT HANDOFF Bedside report and handoff completed Safety check completed PAIN ASSESSMENT Are you currently experiencing pain? No: Pain Score: 0 MOSQUEDA FALL SCALE & TIPS PROGRAM Mos[place] Fall Scale: The [place] Fall scale was performed and score was 40. This is indicative of moderate risk for falls. History of falling: immediate or within 3 months? No Secondary diagnosis: Yes Ambulatory aid: Crutches/cane(s)/walker Intravenous therapy/Heparin lock: No Gait/Transferring: Weakness Mental Status: Oriented to own ability/knows own limitations Fall Tailoring Interventions for Patient Safety (TIPS) Fall TIPS initiated with patient: Yes Interventions: Walking Aids: Walker Fall TIPS reviewed with patient: Yes Interventions: Walking Aids: Walker ENVIRONMENTAL SAFETY MANAGEMENT Implemented safety standards of care: -[place] to unit & environment -Adequate room lighting -Bed in low and locked position -Call light within reach -Personal items within reach -Traffic path in room free of clutter -Non-slip footwear -Upper/half length side rails up for bed mobility -Sensory aids within reach -Encourage patient to utilize sensory support NEUROLOGICAL Neurological Orientation: Oriented x4 Level of Consciousness (AVPU): Alert = Appears aware of and responsive to the environment on their own. Follows commands, opens eyes spontaneously, and tracks objects. Affect/behavior: Cooperative Calm NEUROMUSCULAR/NEUROVASCULAR EXTREMITIES ASSESSMENT Strength: Inclinometer Tester Bilateral: Strong Upper Extremity Bilateral: Moves against gravity Lower Extremity Bilateral: Moves against some resistance Sensation: Upper Extremity Sensation Bilateral: Intact Lower Extremity Sensation Bilateral: Intact Temperature: Upper Extremity Temperature Bilateral: Warm Lower Extremity Temperature Bilateral: Warm CARDIOVASCULAR Heart Sounds: Normal (S1S2) Heart Rate/Rhythm (without school bus monitor): Regular Capillary Refill: All 4 extremities, less than or equal to 3 seconds. Peripheral Pulses: All 4 extremities, 3+ normal. Edema: None RESPIRATORY Respirations: Unlabored Pattern: Regular Breath Sounds Auscultated: Anterior and posterior Left Upper Lobe: Clear Right Upper Lobe: Clear Right Middle Lobe: Clear Left Lower Lobe: Clear Right Lower Lobe: Clear GASTROINTESTINAL Last bowel movement: 08/21/2024 Abdominal Description: Rounded Palpation: Soft, Non-tender Bowel Sounds: RUQ: Active LUQ: Active RLQ: Active LLQ: Active GENITOURINARY Elimination: Continent INTEGUMENTARY/SKIN/WOUND - (INCLUDING KEYLA) SEE NOTE: VAAES SKIN INPECTION/ASSESSMENT PSYCHOSOCIAL Type of Emotional Support Provided: 1:1 discussion, Ventilation of feelings encouraged ADULT EDUCATION Education provided: Topic 1: Safety Specific Content: Call light within reach Method: Verbal Provided to: Patient Patient understanding of education content: Verbalized understanding /es/ TARIQ YU RN REGISTERED NURSE Signed: 08/21/2024 23:[address] [facility] Aug 21, 2024 06:18 PM NURSING INPATIENT NOTE: LOCAL TITLE: [facility] NURSING FREQUENT DOCUMENTATION STANDARD TITLE: NURSING INPATIENT NOTE DATE OF NOTE: AUG 21, 2024@18:18 ENTRY DATE: AUG 21, 2024@18:18:26 AUTHOR: NADIYA LUND COSIGNER: URGENCY: STATUS: COMPLETED Version 2.4 Charting in accordance with [facility] [place] STANDARD ([facility]) ACUTE INPATIENT/REHABILITATION NURSING ADMISSION SCREENING, ASSESSMENT, AND STANDARDS OF CARE ACTIVITIES OF DAILY LIVING Hygiene ADLs: Eating: Independent Foot Care: Inspection Lotion applied Hand Hygiene: Performed post toileting Performed pre meals/snacks Oral Care: Non-ventilator patient: Patient teeth brushed: Independently Pericare: Soap and water Dependent Personal Care: Bath Dependent ENVIRONMENTAL SAFETY MANAGEMENT Implemented safety standards of care: -[place] to unit & environment -Adequate room lighting -Bed in low and locked position -Call light within reach -Personal items within reach -Traffic path in room free of clutter -Non-slip footwear -Upper/half length side rails up for bed mobility -Sensory aids within reach -Encourage patient to utilize sensory support ORAL INTAKE (PERCENTAGE OF MEAL EATEN) Lunch: 76% - 100% Dinner: 76% - 100% /es/ NADIYA LUND IMMUNOLOGY SPECIALIST Signed: 08/21/2024 18:24 NADIYA LUND [facility] Aug 21, 2024 06:13 PM NURSING INPATIENT NOTE: LOCAL TITLE: [facility] ACUTE INPATIENT NSG SHIFT ASSESSMENT STANDARD TITLE: NURSING INPATIENT NOTE DATE OF NOTE: AUG 21, 2024@18:13 ENTRY DATE: AUG 21, 2024@18:13:19 AUTHOR: PILO RL COSIGNER: URGENCY: STATUS: COMPLETED Version 2.2 Charting in accordance with [facility] [place] STANDARD (IDAES) ACUTE INPATIENT/REHABILITATION NURSING ADMISSION SCREENING, ASSESSMENT, AND STANDARDS OF CARE REASSESSMENT HANDOFF Safety check completed PAIN ASSESSMENT Patient's acceptable pain goal: 0 No pain Are you currently experiencing pain? No: ENVIRONMENTAL SAFETY MANAGEMENT Implemented safety standards of care: -[place] to unit & environment -Adequate room lighting -Bed in low and locked position -Call light within reach -Personal items within reach -Traffic path in room free of clutter -Non-slip footwear -Upper/half length side rails up for bed mobility -Sensory aids within reach -Encourage patient to utilize sensory support Additional safety measures: Caregiver/family in attendance Close to nurses station Increased frequency of rounding Mobility support items readily available NEUROLOGICAL Neurological Orientation: Oriented x4 Level of Consciousness (AVPU): Alert = Appears aware of and responsive to the environment on their own. Follows commands, opens eyes spontaneously, and tracks objects. Affect/behavior: Cooperative Calm RESPIRATORY Respirations: Unlabored Pattern: Regular INTEGUMENTARY/SKIN/WOUND - (INCLUDING KEYLA) SEE NOTE: VAAES SKIN INPECTION/ASSESSMENT /shen/ PILO LR RN BSN REGISTERED NURSE Signed: 08/21/2024 18:15 PILO LR [facility] Aug 21, 2024 04:21 PM CARDIOLOGY DIAGNOSTIC STUDY CONSULT: LOCAL TITLE: EKG CONSULT STL STANDARD TITLE: CARDIOLOGY DIAGNOSTIC STUDY CONSULT DATE OF NOTE: AUG 21, 2024@16:21:25 ENTRY DATE: AUG 21, 2024@16:21:25 AUTHOR: MARGE,DEVICE PRO EXP COSIGNER: URGENCY: STATUS: COMPLETED DOCUMENT IN VISTA IMAGING SEE FULL REPORT IN VISTA IMAGING SIGNATURE NOT REQUIRED SEE SIGNATURE IN VISTA IMAGING ([place] EKG) AUTO-INSTRUMENT DIAGNOSIS Procedure: [id number] 12 Lead ECG Release Status: Released Off-Line Verified Date Verified: Aug 21, 2024@16:21:18 59120.2 Ventricular Rate: 73 BPM 75505.3 Atrial Rate: 73 BPM 50400.4 P-R Interval: 168 ms 07350.5 QRS Duration: 140 ms 23400.6 Q-T Interval: 422 ms 00265 QTC Calculation(Bazett)464 ms 26504.12 Calculated P [place]: 43 degrees 12457.13 Calculated R [place]: 266 degrees 71460.14 Calculated T [place]: 104 degrees Atrial-sensed ventricular-paced rhythm with Premature atrial complexes with Aberrant conduction Biventricular pacemaker detected Abnormal ECG When compared with ECG of 19-JUN-2024 06:41, Electronic ventricular pacemaker has replaced Sinus rhythm Vent. rate has increased BY 26 BPM Administrative Closure: 08/21/2024 by: CLINICAL,DEVICE PROXY SERVICE CLINICAL,DEVICE PROXY SERVICE [facility] Aug 21, 2024 08:54 AM NURSING NOTE: LOCAL TITLE: [facility] SKIN INSPECTION/ASSESSMENT STANDARD TITLE: NURSING NOTE DATE OF NOTE: AUG 21, 2024@08:54 ENTRY DATE: AUG 21, 2024@09:54:34 AUTHOR: PILO LR EXP COSIGNER: URGENCY: STATUS: COMPLETED Assessment Type: SKIN REINSPECTION/REASSESSMENT SKIN INSPECTION: Skin Color: Usual for ethnicity Skin Temperature: Warm Skin Moisture: Normal Skin Turgor: Elastic (normal/immediate) Keyla Skin Assessment: The patient's Keyla Scale Score is 19. The patient is considered not at risk for development of pressure ulcers/injuries. Sensory perception -- ability to respond meaningfully to pressure-related discomfort No impairment. Moisture -- degree to which skin is exposed to moisture Rarely moist. Activity -- ability to change and control body position Walks occasionally. Mobility -- ability to change and control body position Slightly limited. Nutrition -- usual food intake patterns Adequate. Friction and shear Potential problem. INTERVENTIONS: New or changed pressure ulcer/injury interventions or medical condition. Education: Provide patient/caregiver education regarding causes and prevention of pressure ulcers/injuries. Provide patient/caregiver education regarding treatment plan for pressure ulcers/injuries. Teach patient/caregiver importance of changing position frequently for pressure ulcer/injury prevention. Pressure-Redistribution measures: Avoid turning/position on side at greater than 30 degree angle Use pillows (or other pressure relieving devices) to separate pressure areas Maximize mobilization: Encourage activity as tolerated Manage moisture: Instruct patient/resident/caregiver to request assistance as needed Maintain clean and dry skin No more than one linen layer below the patient/resident Manage nutrition: Provide or encourage oral care prn Reduce friction and shear: Keep head of bed at or below 30 degrees when not eating RISK FACTORS THAT INCREASE RISK FOR DEVELOPING PRESSURE INJURIES: The patient/resident has the following: Known vascular surgery or vascular disease Incision and Flaps: Incision 1: Incision and Flaps: Incision 1: Location: Dermabound incisions to mid-sternum, transverse upper abdomen, forearm, left chest pacer site intact . No Edema Wound drainage none. /shen/ PILO LR CHIEF METEOROLOGIST REGISTERED NURSE Signed: 08/21/2024 10:13 PILO LR [facility] Aug 21, 2024 08:43 AM NURSING INPATIENT NOTE: LOCAL TITLE: [facility] ACUTE INPATIENT NSG SHIFT ASSESSMENT STANDARD TITLE: NURSING INPATIENT NOTE DATE OF NOTE: AUG 21, 2024@08:43 ENTRY DATE: AUG 21, 2024@09:43:15 AUTHOR: PILO LR EXP COSIGNER: URGENCY: STATUS: COMPLETED Version 2.2 Charting in accordance with ID APPROVED [place] STANDARD (IDAES) ACUTE INPATIENT/REHABILITATION NURSING ADMISSION SCREENING, ASSESSMENT, AND STANDARDS OF CARE ASSESSMENT HANDOFF Bedside report and handoff completed Safety check completed PAIN ASSESSMENT Patient's acceptable pain goal: 0 No pain Are you currently experiencing pain? No: Pain Score: 0 MOSQUEDA FALL SCALE & TIPS PROGRAM Mos[place]eda Fall Scale: The [place] Fall scale was performed and score was 40. This is indicative of moderate risk for falls. History of falling: immediate or within 3 months? No Secondary diagnosis: Yes Ambulatory aid: Crutches/cane(s)/walker Intravenous therapy/Heparin lock: No Gait/Transferring: Weakness Mental Status: Oriented to own ability/knows own limitations Fall Tailoring Interventions for Patient Safety (TIPS) Fall TIPS reviewed with patient: Yes Interventions: Communicate recent fall or risk of harm Walking Aids: Walker ENVIRONMENTAL SAFETY MANAGEMENT Implemented safety standards of care: -[place] to unit & environment -Adequate room lighting -Bed in low and locked position -Call light within reach -Personal items within reach -Traffic path in room free of clutter -Non-slip footwear -Upper/half length side rails up for bed mobility -Sensory aids within reach -Encourage patient to utilize sensory support Additional safety measures: Caregiver/family in attendance Close to nurses station Increased frequency of rounding Mobility support items readily available NEUROLOGICAL Neurological Orientation: Oriented x4 Level of Consciousness (AVPU): Alert = Appears aware of and responsive to the environment on their own. Follows commands, opens eyes spontaneously, and tracks objects. Affect/behavior: Cooperative Calm NEUROMUSCULAR/NEUROVASCULAR EXTREMITIES ASSESSMENT Strength: Inclinometer Tester Bilateral: Strong Upper Extremity Bilateral: Moves against gravity Lower Extremity Bilateral: Moves against gravity Sensation: Upper Extremity Sensation Bilateral: Intact Lower Extremity Sensation Bilateral: Intact Temperature: Upper Extremity Temperature Bilateral: Warm Lower Extremity Temperature Bilateral: Warm CARDIOVASCULAR Heart Rate/Rhythm (without school bus monitor): Regular Capillary Refill: All 4 extremities, less than or equal to 3 seconds. Peripheral Pulses: All 4 extremities, 3+ normal. Edema: None Cardiovascular - Embolism Prevention: Comment: Medication RESPIRATORY Respirations: Unlabored Pattern: Regular Breath Sounds Auscultated: Anterior and posterior Left Upper Lobe: Clear Right Upper Lobe: Clear Right Middle Lobe: Clear Left Lower Lobe: Clear Right Lower Lobe: Clear GASTROINTESTINAL Last bowel movement: 10/13/24 Bowel movement reported by patient-unwitnessed Passing flatus Elimination: Continent Abdominal Description: Rounded Palpation: Soft Bowel Sounds: RUQ: Active LUQ: Active RLQ: Active LLQ: Active GENITOURINARY Elimination: Continent INTEGUMENTARY/SKIN/WOUND - (INCLUDING KEYLA) SEE NOTE: VAAES SKIN INPECTION/ASSESSMENT ACTIVITIES OF DAILY LIVING Hygiene ADLs: Dressing: Upper Body: Independent Lower Body: Independent Eating: Independent Foot Care: Inspection Lotion applied Hand Hygiene: Performed post toileting Oral Care: Non-ventilator patient: The was educated that poor oral hygiene increases the risk of hospital acquired pneumonia and dental problems like gingivitis and tooth decay. [place] was educated using their preferred method and verbalized understanding. MOBILITY Mobility Status: Independent: Able to stand and step without staff assistance Equipment utilized: Walker Gait: Unsteady PSYCHOSOCIAL Type of Emotional Support Provided: 1:1 discussion, Treatment discussion, Ventilation of feelings encouraged ADULT EDUCATION Education provided: Topic 1: Sternal Precautions Specific Content: Method: Verbal Provided to: Caregiver Patient understanding of education content: Verbalized understanding /shen/ PILO LR RN BSN REGISTERED NURSE Signed: 08/21/2024 09:53 PILO LR [facility] Aug 21, 2024 02:02 AM NURSING INPATIENT NOTE: LOCAL TITLE: [facility] PATIENT SAFETY CHECK STL STANDARD TITLE: NURSING INPATIENT NOTE DATE OF NOTE: AUG 21, 2024@02:02 ENTRY DATE: AUG 21, 2024@02:02:25 AUTHOR: JOSSELINE ANNA COSIGNER: URGENCY: STATUS: COMPLETED BEDSIDE SAFETY CHECK STL A visual sweep of the patient's room for any physical or environmental safety concerns was completed and education provided to patient regarding their personal safety concerns. /shen/ JOSSELINE ANNA REGISTERED NURSE Signed: 08/21/2024 02:03 JOSSELINE ANNA [facility] Aug 21, 2024 01:59 AM NURSING NOTE: LOCAL TITLE: VAAES SKIN INSPECTION/ASSESSMENT STANDARD TITLE: NURSING NOTE DATE OF NOTE: AUG 21, 2024@01:59 ENTRY DATE: AUG 21, 2024@01:59:39 AUTHOR: JOSSELINE ANNA COSIGNER: URGENCY: STATUS: COMPLETED Assessment Type: SKIN REINSPECTION/REASSESSMENT SKIN INSPECTION: Skin Color: Usual for ethnicity Skin Temperature: Warm Skin Moisture: Normal Skin Turgor: Elastic (normal/immediate) Keyla Skin Assessment: The patient's Keyla Scale Score is 17. The patient is at mild risk for development of pressure ulcer/injury. Sensory perception -- ability to respond meaningfully to pressure-related discomfort Slightly limited. Moisture -- degree to which skin is exposed to moisture Occasionally moist. Activity -- ability to change and control body position Walks occasionally. Mobility -- ability to change and control body position Slightly limited. Nutrition -- usual food intake patterns Adequate. Friction and shear Potential problem. SKIN ALTERATIONS: Wound Documentation from the past year: Skin Assessment 08/20/2024 Skin Integrity - Wound 08/19/2024 Skin Integrity - Wound Mid chest: skin well approximated, CDI; 08/19/2024 Skin Integrity - Wound sternal incision, left chest pacemaker incision, left forearm 08/19/2024 Skin Integrity - Wound sternal incision,left chest pacemaker incision,left forearm 08/18/2024 Skin Integrity - Wound sternal incision, left forearm, left chest pacer site-steri strips, abdominal incision 08/17/2024 Skin Integrity - Wound glued incisions to mid-sternum, transverse upper abdomen, left forearm, left chest pacer site 08/16/2024 Skin Integrity - Wound sternal incision, chest tube abdomen,left forearm 08/16/2024 Skin Integrity - Wound incisions glued/DE ALCOHOLIZER-mid sternal, transverse upper abdomen, left chest pacer, left forearm 08/16/2024 Skin Integrity - Wound chest midline, transverse upper abdomen, left chest pacer, left forearm 08/15/2024 Skin Integrity - Wound sternal incision, transverse upper abdomen, left forearm 08/14/2024 Skin Integrity - Wound 08/14/2024 Skin Integrity - Wound mis sternal incision/transverse abdominal incision,left pacemaker incision,left forearm incision 08/13/2024 Skin Integrity - Wound mid-sternal incision, transverse abdominal incision, left forearm incision, left chest pacer site 08/12/2024 Skin Integrity - Wound mid-sternal incision 08/11/2024 Skin Integrity - Wound m 08/11/2024 Skin Integrity - Wound SKIN/WOUND DRESSING: Location(s): mid sternum,upper abdomen chest tube sites,left chest pacer, Clean Dry Intact Open to air /es/ JOSSELINE ANNA REGISTERED NURSE Signed: 08/21/2024 02:02 JOSSELINE ANNA [facility] Aug 21, 2024 01:53 AM NURSING INPATIENT NOTE: LOCAL TITLE: [facility] ACUTE INPATIENT NSG SHIFT ASSESSMENT STANDARD TITLE: NURSING INPATIENT NOTE DATE OF NOTE: AUG 21, 2024@01:53 ENTRY DATE: AUG 21, 2024@01:53:41 AUTHOR: JOSSELINE ANNA EXP COSIGNER: URGENCY: STATUS: COMPLETED Version 2.2 Charting in accordance with ID APPROVED [place] STANDARD (IDAES) ACUTE INPATIENT/REHABILITATION NURSING ADMISSION SCREENING, ASSESSMENT, AND STANDARDS OF CARE ASSESSMENT HANDOFF Safety check completed PAIN ASSESSMENT Patient's acceptable pain goal: Are you currently experiencing pain? No: Pain Score: 0 MOSQUEDA FALL SCALE & TIPS PROGRAM Mosqueda Fall Scale: The Mosqueda Fall scale was performed and score was 40. This is indicative of moderate risk for falls. History of falling: immediate or within 3 months? No Secondary diagnosis: Yes Ambulatory aid: Crutches/cane(s)/walker Intravenous therapy/Heparin lock: No Gait/Transferring: Weakness Mental Status: Oriented to own ability/knows own limitations Fall Tailoring Interventions for Patient Safety (TIPS) Fall TIPS reviewed with patient: Yes Interventions: Communicate recent fall or risk of harm Walking Aids: Walker ENVIRONMENTAL SAFETY MANAGEMENT Implemented safety standards of care: -[place] to unit & environment -Adequate room lighting -Bed in low and locked position -Call light within reach -Personal items within reach -Traffic path in room free of clutter -Non-slip footwear -Upper/half length side rails up for bed mobility -Sensory aids within reach -Encourage patient to utilize sensory support Additional safety measures: Caregiver/family in attendance Increased frequency of rounding Mobility support items readily available NEUROLOGICAL Neurological Orientation: Oriented x4 Level of Consciousness (AVPU): Alert = Appears aware of and responsive to the environment on their own. Follows commands, opens eyes spontaneously, and tracks objects. Affect/behavior: Cooperative Calm CARDIOVASCULAR Heart Rate/Rhythm (without school bus monitor): Regular Capillary Refill: All 4 extremities, less than or equal to 3 seconds. Edema: None Cardiovascular - Embolism Prevention: RESPIRATORY Respirations: Unlabored Pattern: Regular GASTROINTESTINAL Last bowel movement: 10/12/24 Elimination: Continent Palpation: Soft GENITOURINARY Elimination: Continent INTEGUMENTARY/SKIN/WOUND - (INCLUDING KEYLA) SEE NOTE: VAAES SKIN INPECTION/ASSESSMENT ACTIVITIES OF DAILY LIVING Hygiene ADLs: Oral Care: Non-ventilator patient: Patient teeth brushed: Independently The [place] was educated that poor oral hygiene increases the risk of hospital acquired pneumonia and dental problems like gingivitis and tooth decay. [place] was educated using their preferred method and verbalized understanding. MOBILITY Mobility Status: Independent: Able to stand and step without staff assistance Equipment utilized: Walker Gait: Steady PSYCHOSOCIAL Type of Emotional Support Provided: 1:1 discussion, Ventilation of feelings encouraged /es/ JOSSELINE ANNA REGISTERED NURSE Signed: 08/21/2024 01:59 JOSSELINE ANNA [facility] Aug 21, 2024 12:17 AM FOUNDATION DIRECTOR CARE NOTE: LOCAL TITLE: [facility] ADL NOTE ST STANDARD TITLE: FOUNDATION DIRECTOR CARE NOTE DATE OF NOTE: AUG 21, 2024@00:17 ENTRY DATE: AUG 21, 2024@00:17:42 AUTHOR: AMADOR MIGUEL EXP COSIGNER: URGENCY: STATUS: COMPLETED Geophysical Support SpecialistJava Development Manager Note Resident Name: CHET WALKER Facility: [facility] Neighborhood: [address] [place] Tour: 08/21/2024 12:00 AM - 08/21/2024 08:00 AM ADL Items: BED MOBILITY: Self: Independent Support: No setup or physical help from staff. Entered By: AMADOR MIGUEL At: 08/21/2024 12:15 AM TRANSFER: Self: Independent Support: No setup or physical help from staff. Entered By: AMADOR MIGUEL At: 08/21/2024 12:15 AM WALK IN ROOM: Self: Independent Support: No setup or physical help from staff. Entered By: AMADOR MIGUEL At: 08/21/2024 12:15 AM WALK IN CORRIDOR: Self: Independent Support: No setup or physical help from staff. Entered By: AMADOR MIGUEL At: 08/21/2024 12:15 AM LOCOMOTION ON UNIT: Self: Independent Support: No setup or physical help from staff. Entered By: AMADOR MIGUEL At: 08/21/2024 12:15 AM LOCOMOTION OFF UNIT: Self: Independent Support: No setup or physical help from staff. Entered By: AMADOR MIGUEL At: 08/21/2024 12:15 AM DRESSING: Self: Independent Support: No setup or physical help from staff. Entered By: AMADOR MIGUEL At: 08/21/2024 12:15 AM EATING: Self: Independent Support: No setup or physical help from staff. Entered By: AMADOR MIGUEL At: 08/21/2024 12:16 AM TOILETING: Self: Independent Support: No setup or physical help from staff. Entered By: AMADOR MIGUEL At: 08/21/2024 12:16 AM HYGIENE: Self: Independent Support: No setup or physical help from staff. Entered By: AMADOR MIGUEL At: 08/21/2024 12:16 AM BATHING: Self: Activity Did Not Occur Support: ADL activity itself did not occur. Entered By: AMADOR MIGUEL At: 08/21/2024 12:16 AM Events: ROUNDING: Entered By: AMADOR MIGUEL At: 08/21/2024 12:16 AM Start Hour: 12 AM Locations: Bed in Room Room Environment: Cords Secure, Lights, No Obstructions, Call Light Within Reach, Personal Items Within Reach, Bed Height Check Safety Equipment: Side Rails - Left, Side Rails - Right Comfort Status: Sleeping, Hydration, Toileting MOOD, BEHAVIORAL & COGNITIVE: Entered By: AMADOR MIGUEL At: 08/21/2024 12:16 AM Mood Observation: Happy/Content Behavioral: Pleasant/Cooperative Significant Change: No MOBILITY: Entered By: AMADOR MIGUEL At: 08/21/2024 12:17 AM Out of Bed: Independent Bed Rest: No BLADDER: Entered By: AMADOR MIGUEL At: 08/21/2024 12:17 AM No Urinary Output: No # of Times: 2 Scheduled: No Continence: Continent Appliances: Toilet Volume: 0 cc/ml Urine Descriptions: Light Yellow BOWEL: Entered By: AMADOR MIGUEL At: 08/21/2024 12:17 AM No Bowel Movement: Yes # of Times: 0 Scheduled: No Independent: No BATHING & ORAL CARE: Entered By: AMADOR MIGUEL At: 08/21/2024 12:17 AM Attire: Brian Oral Education Provided: No /shen/ AMADOR MIGUEL SEASONAL CLERK IMMUNOLOGY SPECIALIST Signed: 08/21/2024 00:17 AMADOR MIGUEL [facility] Aug 20, 2024 07:26 PM FOUNDATION DIRECTOR CARE NOTE: LOCAL TITLE: [facility] ADL NOTE STL STANDARD TITLE: SNF CARE NOTE DATE OF NOTE: AUG 20, 2024@19:26 ENTRY DATE: AUG 20, 2024@19:26:41 AUTHOR: RADHA CIFUENTES EXP COSIGNER: URGENCY: STATUS: COMPLETED Geophysical Support SpecialistJava Development Manager Note Resident Name: CHET WALKER Facility: [facility] Neighborhood: [address] [place] [address] Tour: 08/20/2024 07:00 AM - 08/20/2024 09:45 PM Events: ROUNDING: Entered By: Radha Cifuentes At: 08/20/2024 7:20 PM Start Hour: 7 PM Locations: Bed in Room Room Environment: Call Light Within Reach NUTRITION: Entered By: Radha Cifuentes At: 08/20/2024 7:21 PM Meal: Dinner Method: PO Location: Bedside Amount: 75% Entered By: Radha Cifuentes At: 08/20/2024 7:21 PM Meal: Lunch Method: PO Location: Bedside Amount: 75% MOOD, BEHAVIORAL & COGNITIVE: Entered By: Radha Cifuentes At: 08/20/2024 7:21 PM Behavioral: Pleasant/Cooperative Significant Change: No MOBILITY: Entered By: Radha Cifuentes At: 08/20/2024 7:23 PM Out of Bed: Independent Bed Rest: No BLADDER: Entered By: Radha Cifuentes At: 08/20/2024 7:23 PM No Urinary Output: No # of Times: 1 Scheduled: No Appliances: Toilet Volume: 0 cc/ml /shen/ RADHA CIFUENTES CNA IMMUNOLOGY SPECIALIST Signed: 08/20/2024 19:26 DANIEL CIFUENTES [facility] Aug 20, 2024 12:31 PM PHYSICAL MEDICINE REHAB INPATIENT NOTE: LOCAL TITLE: RESTORATIVE CARE STL STANDARD TITLE: PHYSICAL MEDICINE REHAB INPATIENT NOTE DATE OF NOTE: AUG 20, 2024@12:31 ENTRY DATE: AUG 20, 2024@12:31:57 AUTHOR: VASU ARNETT EXP COSIGNER: URGENCY: STATUS: COMPLETED CLC Restorative Care Treatment STL Treatment: TRANSFERS/AMBULATION Number of minutes: 15 Narrative: transfers independently using F-22 began ambulating 300' stp to rest before ambulating back to room steady gait/pace tolerated well with no c/ pain or discomfort Ambulation: steady with assistance Communication: Verbal Bed Mobility: Independent ROM (Range of Motion): AROM HEP performed /shen/ Vasu Arnett Certified Silk Examiner CERTIFIED NURSE ELECTRIC POWER MACHINE OPERATOR Signed: 08/20/2024 12:35 Receipt Acknowledged By: 08/23/2024 09:23 /shen/ KALIA PELAYON, RN REGISTERED NURSE 08/22/2024 08:04 /es/ GERRY CONRAD PT, DPT, CBVASU DONIS [facility] Aug 20, 2024 09:06 AM NURSING NOTE: LOCAL TITLE: [facility] SKIN INSPECTION/ASSESSMENT STANDARD TITLE: NURSING NOTE DATE OF NOTE: AUG 20, 2024@09:06 ENTRY DATE: AUG 20, 2024@16:06:49 AUTHOR: PILO LR EXP COSIGNER: URGENCY: STATUS: COMPLETED Assessment Type: SKIN REINSPECTION/REASSESSMENT SKIN INSPECTION: Skin Color: Usual for ethnicity Skin Temperature: Warm Skin Moisture: Normal Skin Turgor: Elastic (normal/immediate) Keyla Skin Assessment: The patient's Keyla Scale Score is 17. The patient is at mild risk for development of pressure ulcer/injury. Sensory perception -- ability to respond meaningfully to pressure-related discomfort Slightly limited. Moisture -- degree to which skin is exposed to moisture Occasionally moist. Activity -- ability to change and control body position Walks occasionally. Mobility -- ability to change and control body position Slightly limited. Nutrition -- usual food intake patterns Adequate. Friction and shear Potential problem. INTERVENTIONS: No change in previous interventions as listed below Pressure Ulcer-Education 08/11/2024 Provide Education On Cause/Prevention Pressure Ulcer-Friction/Shear 08/11/2024 Elevate Head of Bed For Meals Pressure Ulcer-Moisture 08/11/2024 Maintain Clean Dry Skin Pressure Ulcer-Nutrition 08/11/2024 Provide/Encourage Oral Care As Needed Pressure Ulcer-Pressure Reducing 08/11/2024 Frequent Position Changes Pressure Ulcer-Remobilize 08/11/2024 Encourage Activity As Tolerated Vaaes Pressure Injury Interventions 08/18/2024 Vaaes Pressure Injury Int Not Needed RISK FACTORS THAT INCREASE RISK FOR DEVELOPING PRESSURE INJURIES: The patient/resident has the following: Known vascular surgery or vascular disease Incision and Flaps: Incision 1: Location: Dermabound incisions to mid-sternum, transverse upper abdomen, forearm, left chest pacer site intact . No Edema Wound drainage none. /es/ PILO LR CHIEF METEOROLOGIST REGISTERED NURSE Signed: 08/20/2024 16:31 PILO LR [facility] Aug 20, 2024 08:54 AM NURSING INPATIENT NOTE: LOCAL TITLE: [facility] ACUTE INPATIENT NSG SHIFT ASSESSMENT STANDARD TITLE: NURSING INPATIENT NOTE DATE OF NOTE: AUG 20, 2024@08:54 ENTRY DATE: AUG 20, 2024@15:55:14 AUTHOR: PILO LR EXP COSIGNER: URGENCY: STATUS: COMPLETED Version 2.2 Charting in accordance with [facility] [place] STANDARD (IDAES) ACUTE INPATIENT/REHABILITATION NURSING ADMISSION SCREENING, ASSESSMENT, AND STANDARDS OF CARE ASSESSMENT HANDOFF Safety check completed PAIN ASSESSMENT Patient's acceptable pain goal: 0 No pain Are you currently experiencing pain? No: Pain Score: 0 MOSQUEDA FALL SCALE & TIPS PROGRAM Mosqueda Fall Scale: The Mosqueda Fall scale was performed and score was 40. This is indicative of moderate risk for falls. History of falling: immediate or within 3 months? No Secondary diagnosis: Yes Ambulatory aid: Crutches/cane(s)/walker Intravenous therapy/Heparin lock: No Gait/Transferring: Weakness Mental Status: Oriented to own ability/knows own limitations Fall Tailoring Interventions for Patient Safety (TIPS) Fall TIPS reviewed with patient: Yes Interventions: Communicate recent fall or risk of harm Walking Aids: Walker ENVIRONMENTAL SAFETY MANAGEMENT Implemented safety standards of care: -[place] to unit & environment -Adequate room lighting -Bed in low and locked position -Call light within reach -Personal items within reach -Traffic path in room free of clutter -Non-slip footwear -Upper/half length side rails up for bed mobility -Sensory aids within reach -Encourage patient to utilize sensory support Additional safety measures: Caregiver/family in attendance Increased frequency of rounding Mobility support items readily available NEUROLOGICAL Neurological Orientation: Oriented x4 Level of Consciousness (AVPU): Alert = Appears aware of and responsive to the environment on their own. Follows commands, opens eyes spontaneously, and tracks objects. Affect/behavior: Cooperative Calm NEUROMUSCULAR/NEUROVASCULAR EXTREMITIES ASSESSMENT Strength: Inclinometer Tester Bilateral: Strong Upper Extremity Bilateral: Full strength Lower Extremity Bilateral: Full strength Sensation: Upper Extremity Sensation Bilateral: Intact Lower Extremity Sensation Bilateral: Intact Temperature: Upper Extremity Temperature Bilateral: Warm Lower Extremity Temperature Bilateral: Warm CARDIOVASCULAR Heart Sounds: Heart Rate/Rhythm (without school bus monitor): Regular Capillary Refill: All 4 extremities, less than or equal to 3 seconds. Peripheral Pulses: All 4 extremities, 3+ normal. Edema: None Cardiovascular - Embolism Prevention: Comment: Medication RESPIRATORY Respirations: Unlabored Pattern: Regular Breath Sounds Auscultated: Anterior and posterior Left Upper Lobe: Clear Right Upper Lobe: Clear Right Middle Lobe: Clear Left Lower Lobe: Clear Right Lower Lobe: Clear GASTROINTESTINAL Last bowel movement: 08/19/24 Bowel movement reported by patient-unwitnessed Passing flatus Elimination: Continent Abdominal Description: Rounded Palpation: Soft Bowel Sounds: RUQ: Active LUQ: Active RLQ: Active LLQ: Active GENITOURINARY Elimination: Continent INTEGUMENTARY/SKIN/WOUND - (INCLUDING KEYLA) SEE NOTE: VAAES SKIN INPECTION/ASSESSMENT ACTIVITIES OF DAILY LIVING Hygiene ADLs: Dressing: Upper Body: Independent Lower Body: Independent Eating: Independent Foot Care: Inspection Hand Hygiene: Performed post toileting Performed pre meals/snacks Oral Care: Non-ventilator patient: Patient teeth brushed: Independently The [place] was educated that poor oral hygiene increases the risk of hospital acquired pneumonia and dental problems like gingivitis and tooth decay. was educated using their preferred method and verbalized understanding. MOBILITY Mobility Status: Independent: Able to stand and step without staff assistance Equipment utilized: Walker Gait: Steady PSYCHOSOCIAL Type of Emotional Support Provided: 1:1 discussion, Treatment discussion, Ventilation of feelings encouraged ADULT EDUCATION Education provided: Topic 1: Sternal precautions , no heavy lifting Specific Content: Method: Verbal Provided to: Patient Patient understanding of education content: Verbalized understanding /es/ PILO MOTTAN REGISTERED NURSE Signed: 08/20/2024 16:06 PILO LR [facility] Aug 20, 2024 03:36 AM NURSING INPATIENT NOTE: LOCAL TITLE: [facility] PATIENT SAFETY CHECK ST STANDARD TITLE: NURSING INPATIENT NOTE DATE OF NOTE: AUG 20, 2024@03:36 ENTRY DATE: AUG 20, 2024@03:36:38 AUTHOR: JOSSELINE ANNA EXP COSIGNER: URGENCY: STATUS: COMPLETED BEDSIDE SAFETY CHECK STL A visual sweep of the patient's room for any physical or environmental safety concerns was completed and education provided to patient regarding their personal safety concerns. /shen/ JOSSELINE ANNA REGISTERED NURSE Signed: 08/20/2024 03:37 JOSSELINE ANNA Teodora CRISOSTOMO [facility] Aug 20, 2024 12:05 AM SNF CARE NOTE: LOCAL TITLE: [facility] ADL NOTE STL STANDARD TITLE: SNF CARE NOTE DATE OF NOTE: AUG 20, 2024@00:05 ENTRY DATE: AUG 20, 2024@00:05:33 AUTHOR: AMADOR MIGUEL EXP COSIGNER: URGENCY: STATUS: COMPLETED Geophysical Support SpecialistJava Development Manager Note Resident Name: CHET WALKER Facility: [facility] Neighborhood: [address] [facility] Tour: 08/19/2024 11:45 PM - 08/20/2024 07:45 AM ADL Items: BED MOBILITY: Self: Independent Support: No setup or physical help from staff. Entered By: AMADOR MIGUEL At: 08/20/2024 12:01 AM TRANSFER: Self: Independent Support: No setup or physical help from staff. Entered By: AMADOR MIGUEL At: 08/20/2024 12:02 AM WALK IN ROOM: Self: Activity Did Not Occur Support: ADL activity itself did not occur. Entered By: AMADOR MIGUEL At: 08/20/2024 12:02 AM WALK IN CORRIDOR: Self: Activity Did Not Occur Support: ADL activity itself did not occur. Entered By: AMADOR MIGUEL At: 08/20/2024 12:02 AM LOCOMOTION ON UNIT: Self: Independent Support: No setup or physical help from staff. Entered By: AMADOR MIGUEL At: 08/20/2024 12:02 AM LOCOMOTION OFF UNIT: Self: Activity Did Not Occur Support: ADL activity itself did not occur. Entered By: AMADOR MIGUEL At: 08/20/2024 12:03 AM DRESSING: Self: Independent Support: No setup or physical help from staff. Entered By: AMADOR MIGUEL At: 08/20/2024 12:03 AM EATING: Self: Independent Support: No setup or physical help from staff. Entered By: AMADOR MIGUEL At: 08/20/2024 12:03 AM TOILETING: Self: Independent Support: No setup or physical help from staff. Entered By: AMADOR MIGUEL At: 08/20/2024 12:03 AM HYGIENE: Self: Independent Support: No setup or physical help from staff. Entered By: AMADOR MIGUEL At: 08/20/2024 12:03 AM BATHING: Self: Activity Did Not Occur Support: ADL activity itself did not occur. Entered By: AMADOR MIGUEL At: 08/20/2024 12:03 AM Events: ROUNDING: Entered By: AMADOR MIGUEL At: 08/20/2024 12:04 AM Start Hour: 12 AM Locations: Bed in Room Room Environment: Cords Secure, Lights, No Obstructions, Call Light Within Reach, Personal Items Within Reach, Bed Height Check Safety Equipment: Low Position Bed, Side Rails - Left, Side Rails - Right Comfort Status: Sleeping, Hydration MOOD, BEHAVIORAL & COGNITIVE: Entered By: AMADOR MIGUEL At: 08/20/2024 12:04 AM Mood Observation: Happy/Content Behavioral: Pleasant/Cooperative Significant Change: No MOBILITY: Entered By: AMADOR MIGUEL At: 08/20/2024 12:04 AM Out of Bed: Independent Bed Rest: No BLADDER: Entered By: AMADOR MIGUEL At: 08/20/2024 12:04 AM No Urinary Output: No # of Times: 2 Scheduled: No Continence: Continent Appliances: Toilet Volume: 0 cc/ml Urine Descriptions: Light Yellow BOWEL: Entered By: AMADOR MIGUEL At: 08/20/2024 12:04 AM No Bowel Movement: Yes # of Times: 0 Scheduled: No Independent: No BATHING & ORAL CARE: Entered By: AMADOR MIGUEL At: 08/20/2024 12:04 AM Attire: Brian Oral Education Provided: Melvina /shen/ AMADOR MIGUEL SEASONAL CLERK IMMUNOLOGY SPECIALIST Signed: 08/20/2024 00:05 AMADOR MIGUEL [facility] Aug 19, 2024 11:51 PM NURSING NOTE: LOCAL TITLE: [facility] SKIN INSPECTION/ASSESSMENT STANDARD TITLE: NURSING NOTE DATE OF NOTE: AUG 19, 2024@23:51 ENTRY DATE: AUG 19, 2024@23:51:44 AUTHOR: JOSSELINE ANNA COSIGNER: URGENCY: STATUS: COMPLETED Assessment Type: SKIN REINSPECTION/REASSESSMENT SKIN INSPECTION: Skin Color: Usual for ethnicity Skin Temperature: Warm Skin Moisture: Normal Skin Turgor: Elastic (normal/immediate) Keyla Skin Assessment: The patient's Keyla Scale Score is 17. The patient is at mild risk for development of pressure ulcer/injury. Sensory perception -- ability to respond meaningfully to pressure-related discomfort Slightly limited. Moisture -- degree to which skin is exposed to moisture Occasionally moist. Activity -- ability to change and control body position Walks occasionally. Mobility -- ability to change and control body position Slightly limited. Nutrition -- usual food intake patterns Adequate. Friction and shear Potential problem. SKIN ALTERATIONS: Pressure Ulcer/Injury Documentation from the past year: No data available SKIN ALTERATIONS: Wound Documentation from the past year: Skin Assessment 08/19/2024 Skin Integrity - Wound Mid chest: skin well approximated, CDI; 08/19/2024 Skin Integrity - Wound sternal incision, left chest pacemaker incision, left forearm 08/18/2024 Skin Integrity - Wound sternal incision, left forearm, left chest pacer site-steri strips, abdominal incision 08/17/2024 Skin Integrity - Wound glued incisions to mid-sternum, transverse upper abdomen, left forearm, left chest pacer site 08/16/2024 Skin Integrity - Wound sternal incision, chest tube abdomen,left forearm 08/16/2024 Skin Integrity - Wound incisions glued/DE ALCOHOLIZER-mid sternal, transverse upper abdomen, left chest pacer, left forearm 08/16/2024 Skin Integrity - Wound chest midline, transverse upper abdomen, left chest pacer, left forearm 08/15/2024 Skin Integrity - Wound sternal incision, transverse upper abdomen, left forearm 08/14/2024 Skin Integrity - Wound 08/14/2024 Skin Integrity - Wound mis sternal incision/transverse abdominal incision,left pacemaker incision,left forearm incision 08/13/2024 Skin Integrity - Wound mid-sternal incision, transverse abdominal incision, left forearm incision, left chest pacer site 08/12/2024 Skin Integrity - Wound mid-sternal incision 08/11/2024 Skin Integrity - Wound m 08/11/2024 Skin Integrity - Wound Wound - other than pressure ulcer/injury (includes open surgical wounds/incisions): Location: sternal incision,left chest pacemaker incision,left forearm No Edema Wound drainage none. SKIN/WOUND DRESSING: Location(s): sternal incison, left chest pacemaker incision, left forearm Clean Dry Open to air /es/ JOSSELINE ANNA REGISTERED NURSE Signed: 08/20/2024 00:02 JOSSELINE ANNA [facility] Aug 19, 2024 11:39 PM NURSING INPATIENT NOTE: LOCAL TITLE: [facility] ACUTE INPATIENT NSG SHIFT ASSESSMENT STANDARD TITLE: NURSING INPATIENT NOTE DATE OF NOTE: AUG 19, 2024@23:39 ENTRY DATE: AUG 19, 2024@23:39:46 AUTHOR: JOSSELINE ANNA EXP COSIGNER: URGENCY: STATUS: COMPLETED Version 2.2 Charting in accordance with [facility] [place] STANDARD (IDAES) ACUTE INPATIENT/REHABILITATION NURSING ADMISSION SCREENING, ASSESSMENT, AND STANDARDS OF CARE ASSESSMENT HANDOFF Bedside report and handoff completed Safety check completed PAIN ASSESSMENT Patient's acceptable pain goal: Are you currently experiencing pain? MOSQUEDA FALL SCALE & TIPS PROGRAM Mosqueda Fall Scale: The Mosqueda Fall scale was performed and score was 25. This is indicative of moderate risk for falls. History of falling: immediate or within 3 months? No Secondary diagnosis: Yes Ambulatory aid: None/bedrest/nurse assist Intravenous therapy/Heparin lock: No Gait/Transferring: Weakness Mental Status: Oriented to own ability/knows own limitations Fall Tailoring Interventions for Patient Safety (TIPS) Fall TIPS reviewed with patient: Yes Interventions: Walking Aids: Walker Assistance out of bed: Call for assistance before getting out of bed ENVIRONMENTAL SAFETY MANAGEMENT Implemented safety standards of care: -[place] to unit & environment -Adequate room lighting -Bed in low and locked position -Call light within reach -Personal items within reach -Traffic path in room free of clutter -Non-slip footwear -Upper/half length side rails up for bed mobility -Sensory aids within reach -Encourage patient to utilize sensory support NEUROLOGICAL Neurological Orientation: Oriented x4 Level of Consciousness (AVPU): Alert = Appears aware of and responsive to the environment on their own. Follows commands, opens eyes spontaneously, and tracks objects. Affect/behavior: Cooperative Calm CARDIOVASCULAR Edema: None RESPIRATORY Respirations: Unlabored Pattern: Regular Breath Sounds Auscultated: Anterior only Left Upper Lobe: Clear Right Upper Lobe: Clear Right Middle Lobe: Clear Left Lower Lobe: Clear Right Lower Lobe: Clear GASTROINTESTINAL Last bowel movement: 10/11/24 Abdominal Description: Flat Palpation: Soft, Non-tender GENITOURINARY Elimination: Continent INTEGUMENTARY/SKIN/WOUND - (INCLUDING KEYLA) SEE NOTE: VAAES SKIN INPECTION/ASSESSMENT ACTIVITIES OF DAILY LIVING Hygiene ADLs: Oral Care: Non-ventilator patient: Patient teeth brushed: Independently [facility] [place] was educated that poor oral hygiene increases the risk of hospital acquired pneumonia and dental problems like gingivitis and tooth decay. was educated using their preferred method and verbalized understanding. MOBILITY Mobility Status: Minimum assist: Stands with support only (Unsteady or requires verbal cueing) Unable to march and step independently Gait: Unsteady PSYCHOSOCIAL Type of Emotional Support Provided: 1:1 discussion, Ventilation of feelings encouraged /es/ JOSSELINE ANNA REGISTERED NURSE Signed: 08/19/2024 23:51 JOSSELINE ANNA [facility] Aug 19, 2024 06:26 PM NURSING INPATIENT NOTE: LOCAL TITLE: [facility] ACUTE INPATIENT NSG SHIFT ASSESSMENT STANDARD TITLE: NURSING INPATIENT NOTE DATE OF NOTE: AUG 19, 2024@18:26 ENTRY DATE: AUG 19, 2024@18:26:32 AUTHOR: PILO LR COSIGNER: URGENCY: STATUS: COMPLETED Version 2.2 Charting in accordance with [place] [facility] [place] STANDARD (VAAES) ACUTE INPATIENT/REHABILITATION NURSING ADMISSION SCREENING, ASSESSMENT, AND STANDARDS OF CARE ASSESSMENT HANDOFF Safety check completed PAIN ASSESSMENT Patient's acceptable pain goal: 0 No pain Are you currently experiencing pain? No: Pain Score: 0 NEUROLOGICAL Neurological Orientation: Oriented x4 Level of Consciousness (AVPU): Alert = Appears aware of and responsive to the environment on their own. Follows commands, opens eyes spontaneously, and tracks objects. Affect/behavior: Cooperative Calm RESPIRATORY Respirations: Unlabored Pattern: Regular INTEGUMENTARY/SKIN/WOUND - (INCLUDING KEYLA) SEE NOTE: VAAES SKIN INPECTION/ASSESSMENT /es/ PILO LR CHIEF METEOROLOGIST REGISTERED NURSE Signed: 08/19/2024 18:29 PILO LR [facility] Aug 19, 2024 05:34 PM SNF CARE NOTE: LOCAL TITLE: [facility] ADL NOTE STL STANDARD TITLE: SNF CARE NOTE DATE OF NOTE: AUG 19, 2024@17:34 ENTRY DATE: AUG 19, 2024@17:34:46 AUTHOR: DEEPA MACHUCA COSIGNER: URGENCY: STATUS: COMPLETED Geophysical Support SpecialistJava Development Manager Note Resident Name: CHET WALKER Facility: [facility] Neighborhood: [id number] [place] Tour: 08/19/2024 07:00 AM - 08/19/2024 09:00 PM ADL Items: BED MOBILITY: Self: Independent Support: No setup or physical help from staff. Entered By: Deepa Machuca At: 08/19/2024 1:19 PM TRANSFER: Self: Independent Support: No setup or physical help from staff. Entered By: Deepa Machuca At: 08/19/2024 1:20 PM WALK IN ROOM: Self: Activity Did Not Occur Support: ADL activity itself did not occur. Entered By: Deepa Machuca At: 08/19/2024 1:20 PM WALK IN CORRIDOR: Self: Activity Did Not Occur Support: ADL activity itself did not occur. Entered By: Deepa Machuca At: 08/19/2024 1:21 PM LOCOMOTION ON UNIT: Self: Independent Support: No setup or physical help from staff. Entered By: Deepa Machuca At: 08/19/2024 1:21 PM LOCOMOTION OFF UNIT: Self: Activity Did Not Occur Support: ADL activity itself did not occur. Entered By: Deepa Machuca At: 08/19/2024 1:21 PM DRESSING: Self: Independent Support: No setup or physical help from staff. Entered By: Deepa Machuca At: 08/19/2024 1:22 PM EATING: Self: Independent Support: No setup or physical help from staff. Entered By: Deepa Machuca At: 08/19/2024 1:22 PM TOILETING: Self: Independent Support: No setup or physical help from staff. Entered By: Deepa Machuca At: 08/19/2024 2:56 PM HYGIENE: Self: Independent Support: No setup or physical help from staff. Entered By: Deepa Machuca At: 08/19/2024 2:56 PM BATHING: Self: Activity Did Not Occur Support: ADL activity itself did not occur. Entered By: Deepa Machuca At: 08/19/2024 2:56 PM Events: ROUNDING: Entered By: Deepa Machuca At: 08/19/2024 2:57 PM Start Hour: 2 PM Locations: Chair in Room Room Environment: Cords Secure, Lights, No Obstructions, Call Light Within Reach, Personal Items Within Reach, Bed Height Check Safety Equipment: Low Position Bed Comfort Status: Awake NUTRITION: Entered By: Deepa Machuca At: 08/19/2024 5:34 PM Meal: Dinner Method: PO Location: Bedside Amount: 75% Entered By: Deepa Machuca At: 08/19/2024 2:58 PM Meal: Lunch Method: PO Location: Bedside Amount: 100% Entered By: Deepa Machuca At: 08/19/2024 2:58 PM Meal: Breakfast Method: PO Location: Bedside Amount: 100% MOOD, BEHAVIORAL & COGNITIVE: Entered By: Deepa Machuca At: 08/19/2024 2:58 PM Mood Observation: Happy/Content Behavioral: Pleasant/Cooperative Cognitive: Alert & Oriented Significant Change: No MOBILITY: Entered By: Deepa Machuca At: 08/19/2024 2:58 PM Out of Bed: Independent Devices: Manual Wheelchair Bed Rest: No BLADDER: Entered By: Deepa Machuca At: 08/19/2024 2:58 PM No Urinary Output: No # of Times: 2 Scheduled: No Continence: Continent Appliances: Toilet Volume: 0 cc/ml Urine Descriptions: Light Yellow BOWEL: Entered By: Deepa Machuca At: 08/19/2024 2:59 PM No Bowel Movement: Yes # of Times: 0 Scheduled: No Independent: No BATHING & ORAL CARE: Entered By: Deepa Machuca At: 08/19/2024 2:59 PM Attire: Personal Attire Oral Education Provided: Melvina /shen/ JAREK JETT IMMUNOLOGY SPECIALIST Signed: 08/19/2024 17:34 DEEPA MACHUCA [facility] Aug 19, 2024 09:24 AM NURSING NOTE: LOCAL TITLE: [facility] SKIN INSPECTION/ASSESSMENT STANDARD TITLE: NURSING NOTE DATE OF NOTE: AUG 19, 2024@09:24 ENTRY DATE: AUG 19, 2024@09:24:58 AUTHOR: MARTHA JONES EXP COSIGNER: URGENCY: STATUS: COMPLETED Assessment Type: SKIN REINSPECTION/REASSESSMENT SKIN INSPECTION: Skin Color: Usual for ethnicity Skin Temperature: Warm Skin Moisture: Normal Skin Turgor: Elastic (normal/immediate) Keyla Skin Assessment: The patient's Keyla Scale Score is 18. The patient is at mild risk for development of pressure ulcer/injury. Sensory perception -- ability to respond meaningfully to pressure-related discomfort Slightly limited. Moisture -- degree to which skin is exposed to moisture Occasionally moist. Activity -- ability to change and control body position Walks occasionally. Mobility -- ability to change and control body position Slightly limited. Nutrition -- usual food intake patterns Adequate. Friction and shear No apparent problem. INTERVENTIONS: No change in previous interventions as listed below Pressure Ulcer-Education 08/11/2024 Provide Education On Cause/Prevention Pressure Ulcer-Friction/Shear 08/11/2024 Elevate Head of Bed For Meals Pressure Ulcer-Moisture 08/11/2024 Maintain Clean Dry Skin Pressure Ulcer-Nutrition 08/11/2024 Provide/Encourage Oral Care As Needed Pressure Ulcer-Pressure Reducing 08/11/2024 Frequent Position Changes Pressure Ulcer-Remobilize 08/11/2024 Encourage Activity As Tolerated Vaaes Pressure Injury Interventions 08/18/2024 Vaaes Pressure Injury Int Not Needed RISK FACTORS THAT INCREASE RISK FOR DEVELOPING PRESSURE INJURIES The patient/resident does not have any additional risk factors. Wound - other than pressure ulcer/injury (includes open surgical wounds/incisions): Location: sternal incision, left chest pacemaker incision, left forearm No Edema Wound drainage none. /shen/ MARTHA JONES CHIEF METEOROLOGIST REGISTERED NURSE Signed: 08/19/2024 15:19 MARTHA JONES [facility] Aug 19, 2024 08:52 AM NURSING INPATIENT NOTE: LOCAL TITLE: [facility] ACUTE INPATIENT NSG SHIFT ASSESSMENT STANDARD TITLE: NURSING INPATIENT NOTE DATE OF NOTE: AUG 19, 2024@08:52 ENTRY DATE: AUG 19, 2024@08:52:18 AUTHOR: MARTHA JONES EXP COSIGNER: URGENCY: STATUS: COMPLETED Version 2.2 Charting in accordance with [place] STANDARD (IDAES) ACUTE INPATIENT/REHABILITATION NURSING ADMISSION SCREENING, ASSESSMENT, AND STANDARDS OF CARE ASSESSMENT HANDOFF Bedside report and handoff completed Safety check completed PAIN ASSESSMENT Patient's acceptable pain goal: 0 No pain Are you currently experiencing pain? No: Pain Score: 0 MOSQUEDA FALL SCALE & TIPS PROGRAM Mosqueda Fall Scale: The Mosqueda Fall scale was performed and score was 40. This is indicative of moderate risk for falls. History of falling: immediate or within 3 months? No Secondary diagnosis: Yes Ambulatory aid: Crutches/cane(s)/walker Intravenous therapy/Heparin lock: No Gait/Transferring: Weakness Mental Status: Oriented to own ability/knows own limitations Fall Tailoring Interventions for Patient Safety (TIPS) Fall TIPS reviewed with patient: Yes Interventions: Walking Aids: Walker Assistance out of bed: Call for assistance before getting out of bed ENVIRONMENTAL SAFETY MANAGEMENT Implemented safety standards of care: -[place] to unit & environment -Adequate room lighting -Bed in low and locked position -Call light within reach -Personal items within reach -Traffic path in room free of clutter -Non-slip footwear -Upper/half length side rails up for bed mobility -Sensory aids within reach -Encourage patient to utilize sensory support NEUROLOGICAL Neurological Orientation: Oriented x4 Level of Consciousness (AVPU): Alert = Appears aware of and responsive to the environment on their own. Follows commands, opens eyes spontaneously, and tracks objects. Affect/behavior: Cooperative Calm CARDIOVASCULAR Heart Sounds: Normal (S1S2) Edema: None RESPIRATORY Respirations: Unlabored Pattern: Regular Breath Sounds Auscultated: Anterior and posterior Left Upper Lobe: Clear Right Upper Lobe: Clear Right Middle Lobe: Clear Left Lower Lobe: Clear Right Lower Lobe: Clear GASTROINTESTINAL No bowel movement reported by patient Passing flatus Elimination: Continent Abdominal Description: Flat Palpation: Soft, Non-tender Bowel Sounds: RUQ: Active LUQ: Active RLQ: Active LLQ: Active GENITOURINARY Elimination: Continent INTEGUMENTARY/SKIN/WOUND - (INCLUDING KEYLA) SEE NOTE: VAAES SKIN INPECTION/ASSESSMENT ACTIVITIES OF DAILY LIVING Hygiene ADLs: Oral Care: Non-ventilator patient: Patient teeth brushed: Independently PSYCHOSOCIAL Type of Emotional Support Provided: 1:1 discussion ADULT EDUCATION Education provided: Topic 1: safety Specific Content: educated on fall prevention Method: Verbal Provided to: Patient Patient understanding of education content: Verbalized understanding /shen/ MARTHA MOTTAN REGISTERED NURSE Signed: 08/19/2024 15:19 MARTHA JONES [facility] Aug 19, 2024 01:55 AM NURSING INPATIENT NOTE: LOCAL TITLE: [facility] PATIENT SAFETY CHECK STL STANDARD TITLE: NURSING INPATIENT NOTE DATE OF NOTE: AUG 19, 2024@01:55 ENTRY DATE: AUG 19, 2024@01:55:30 AUTHOR: SEVERO NG EXP COSIGNER: URGENCY: STATUS: COMPLETED BEDSIDE SAFETY CHECK STL Visual inspection of wounds, incisions, and drains. A visual sweep of the patient's room for any physical or environmental safety concerns was completed and education provided to patient regarding their personal safety concerns. /camryn YU BA, RN REGISTERED NURSE Signed: 08/19/2024 01:55 SEVERO NG [facility] Aug 19, 2024 01:42 AM FOUNDATION DIRECTOR CARE NOTE: LOCAL TITLE: [facility] ADL NOTE STL STANDARD TITLE: FOUNDATION DIRECTOR CARE NOTE DATE OF NOTE: AUG 19, 2024@01:42 ENTRY DATE: AUG 19, 2024@01:42:55 AUTHOR: AMADOR MIGUEL EXP COSIGNER: URGENCY: STATUS: COMPLETED Geophysical Support SpecialistJava Development Manager Note Resident Name: CHET WAKLER Facility: [facility] Neighborhood: [address] [place] Tour: 08/19/2024 01:15 AM - 08/19/2024 09:15 AM ADL Items: BED MOBILITY: Self: Independent Support: No setup or physical help from staff. Entered By: AMADOR MIGUEL At: 08/19/2024 1:40 AM TRANSFER: Self: Independent Support: No setup or physical help from staff. Entered By: AMADOR MIGUEL At: 08/19/2024 1:40 AM WALK IN ROOM: Self: Activity Did Not Occur Support: ADL activity itself did not occur. Entered By: AMADOR MIGUEL At: 08/19/2024 1:40 AM WALK IN CORRIDOR: Self: Activity Did Not Occur Support: ADL activity itself did not occur. Entered By: AMADOR MIGUEL At: 08/19/2024 1:40 AM LOCOMOTION ON UNIT: Self: Independent Support: No setup or physical help from staff. Entered By: AMADOR MIGUEL At: 08/19/2024 1:40 AM LOCOMOTION OFF UNIT: Self: Activity Did Not Occur Support: ADL activity itself did not occur. Entered By: AMADOR MIGUEL At: 08/19/2024 1:41 AM DRESSING: Self: Independent Support: No setup or physical help from staff. Entered By: AMADOR MIGUEL At: 08/19/2024 1:41 AM EATING: Self: Independent Support: No setup or physical help from staff. Entered By: AMADOR MIGUEL At: 08/19/2024 1:41 AM TOILETING: Self: Independent Support: No setup or physical help from staff. Entered By: AMADOR MIGUEL At: 08/19/2024 1:41 AM HYGIENE: Self: Independent Support: No setup or physical help from staff. Entered By: AMADOR MIGUEL At: 08/19/2024 1:41 AM BATHING: Self: Activity Did Not Occur Support: ADL activity itself did not occur. Entered By: AMADOR MIGUEL At: 08/19/2024 1:41 AM Events: ROUNDING: Entered By: AMADOR MIGUEL At: 08/19/2024 1:42 AM Start Hour: 1 AM Locations: Bed in Room Room Environment: Cords Secure, Lights, No Obstructions, Call Light Within Reach, Personal Items Within Reach, Bed Height Check Safety Equipment: Side Rails - Left, Side Rails - Right Comfort Status: Sleeping, Hydration MOOD, BEHAVIORAL & COGNITIVE: Entered By: AMADOR MIGUEL At: 08/19/2024 1:42 AM Mood Observation: Happy/Content Behavioral: Pleasant/Cooperative Significant Change: No MOBILITY: Entered By: AMADOR MIGUEL At: 08/19/2024 1:42 AM Out of Bed: Independent Bed Rest: No BLADDER: Entered By: AMADOR MIGUEL At: 08/19/2024 1:42 AM No Urinary Output: No # of Times: 1 Scheduled: No Continence: Continent Appliances: Toilet Volume: 0 cc/ml Urine Descriptions: Light Yellow BOWEL: Entered By: AMADOR MIGUEL At: 08/19/2024 1:42 AM No Bowel Movement: Yes # of Times: 0 Scheduled: No Independent: No BATHING & ORAL CARE: Entered By: AMADOR MIGUEL At: 08/19/2024 1:42 AM Attire: Zofia/Cinthya Oral Education Provided: Melvina /shen/ AMADOR MIGUEL SEASONAL CLERK IMMUNOLOGY SPECIALIST Signed: 08/19/2024 01:42 AMADOR MIGUEL [facility] Aug 18, 2024 10:15 PM NURSING INPATIENT NOTE: LOCAL TITLE: [facility] ACUTE INPATIENT NSG SHIFT ASSESSMENT STANDARD TITLE: NURSING INPATIENT NOTE DATE OF NOTE: AUG 18, 2024@22:15 ENTRY DATE: AUG 19, 2024@01:28:43 AUTHOR: SEVERO NG COSIGNER: URGENCY: STATUS: COMPLETED Version 2.2 Charting in accordance with [facility] [place] STANDARD (IDAES) ACUTE INPATIENT/REHABILITATION NURSING ADMISSION SCREENING, ASSESSMENT, AND STANDARDS OF CARE ASSESSMENT PAIN ASSESSMENT Patient's acceptable pain goal: Are you currently experiencing pain? No: Pain Score: 0 MOSQUEDA FALL SCALE & TIPS PROGRAM Mosqueda Fall Scale: The Mosqueda Fall scale was performed and score was 15. This is indicative of low risk of falls. History of falling: immediate or within 3 months? No Secondary diagnosis: Yes Ambulatory aid: None/bedrest/nurse assist Intravenous therapy/Heparin lock: No Gait/Transferring: Normal/bed rest/immobile Mental Status: Oriented to own ability/knows own limitations Fall Tailoring Interventions for Patient Safety (TIPS) Fall TIPS initiated with patient: Yes Interventions: Communicate recent fall or risk of harm Fall TIPS reviewed with patient: Yes Interventions: Assistance out of bed: Call for assistance before getting out of bed Safe patient handling device necessary ENVIRONMENTAL SAFETY MANAGEMENT Implemented safety standards of care: -[place] to unit & environment -Adequate room lighting -Bed in low and locked position -Call light within reach -Personal items within reach -Traffic path in room free of clutter -Non-slip footwear -Upper/half length side rails up for bed mobility -Sensory aids within reach -Encourage patient to utilize sensory support Additional safety measures: Increased frequency of rounding Mobility support items readily available NEUROLOGICAL Neurological Orientation: Oriented x4 Level of Consciousness (AVPU): Alert = Appears aware of and responsive to the environment on their own. Follows commands, opens eyes spontaneously, and tracks objects. Affect/behavior: Cooperative Calm NEUROMUSCULAR/NEUROVASCULAR EXTREMITIES ASSESSMENT Strength: Inclinometer Tester Bilateral: Strong Upper Extremity Bilateral: Full strength Lower Extremity Bilateral: Full strength Sensation: Upper Extremity Sensation Bilateral: Intact Lower Extremity Sensation Bilateral: Intact Temperature: Upper Extremity Temperature Bilateral: Warm Lower Extremity Temperature Bilateral: Warm CARDIOVASCULAR Heart Sounds: Normal (S1S2) Heart Rate/Rhythm (without school bus monitor): Regular Capillary Refill: All 4 extremities, less than or equal to 3 seconds. Peripheral Pulses: All 4 extremities, 3+ normal. Edema: None RESPIRATORY Respirations: Unlabored Pattern: Regular Breath Sounds Auscultated: Anterior and posterior Left Upper Lobe: Clear Right Upper Lobe: Clear Right Middle Lobe: Clear Left Lower Lobe: Clear Right Lower Lobe: Clear GASTROINTESTINAL Passing flatus Elimination: Continent Bowel Sounds: RUQ: Active LUQ: Active RLQ: Active LLQ: Active GENITOURINARY Elimination: Continent INTEGUMENTARY/SKIN/WOUND - (INCLUDING KEYLA) SEE NOTE: VAAES SKIN INPECTION/ASSESSMENT ACTIVITIES OF DAILY LIVING Hygiene ADLs: Oral Care: Non-ventilator patient: Patient teeth brushed: Independently MOBILITY Mobility Status: Independent: Able to stand and step without staff assistance PSYCHOSOCIAL Type of Emotional Support Provided: Hospitalization discussion, Treatment discussion ADULT EDUCATION Education provided: Topic 1: Medical devices Specific Content: Pacemaker Method: Verbal Provided to: Patient Patient understanding of education content: Verbalized understanding Comment: /shen/ SEVERO YU BA RN REGISTERED NURSE Signed: 08/19/2024 01:36 SEVERO NG [facility] Aug 18, 2024 10:15 PM NURSING NOTE: LOCAL TITLE: [facility] SKIN INSPECTION/ASSESSMENT STANDARD TITLE: NURSING NOTE DATE OF NOTE: AUG 18, 2024@22:15 ENTRY DATE: AUG 19, 2024@01:37:14 AUTHOR: SEVERO NG EXP COSIGNER: URGENCY: STATUS: COMPLETED Assessment Type: SKIN REINSPECTION/REASSESSMENT SKIN INSPECTION: Skin Color: Skin Temperature: Warm Skin Moisture: Skin Turgor: Keyla Skin Assessment: The patient's Keyla Scale Score is 21. The patient is considered not at risk for development of pressure ulcers/injuries. Sensory perception -- ability to respond meaningfully to pressure-related discomfort No impairment. Moisture -- degree to which skin is exposed to moisture Rarely moist. Activity -- ability to change and control body position Walks occasionally. Mobility -- ability to change and control body position No limitation. Nutrition -- usual food intake patterns Adequate. Friction and shear No apparent problem. INTERVENTIONS: No change in previous interventions as listed below Pressure Ulcer-Education 08/11/2024 Provide Education On Cause/Prevention Pressure Ulcer-Friction/Shear 08/11/2024 Elevate Head of Bed For Meals Pressure Ulcer-Moisture 08/11/2024 Maintain Clean Dry Skin Pressure Ulcer-Nutrition 08/11/2024 Provide/Encourage Oral Care As Needed Pressure Ulcer-Pressure Reducing 08/11/2024 Frequent Position Changes Pressure Ulcer-Remobilize 08/11/2024 Encourage Activity As Tolerated Vaaes Pressure Injury Interventions 08/18/2024 Vaaes Pressure Injury Int Not Needed SKIN ALTERATIONS: Pressure Ulcer/Injury Documentation from the past year: No data available Wound - other than pressure ulcer/injury (includes open surgical wounds/incisions): Location: Mid chest: skin well approximated, CDI; No Edema Wound drainage none. /shen/ SEVERO NG BSN BA RN REGISTERED NURSE Signed: 08/19/2024 01:44 SEVERO NG [facility] Aug 18, 2024 07:03 PM NURSING INPATIENT NOTE: LOCAL TITLE: [facility] ACUTE INPATIENT NSG SHIFT ASSESSMENT STANDARD TITLE: NURSING INPATIENT NOTE DATE OF NOTE: AUG 18, 2024@19:03 ENTRY DATE: AUG 18, 2024@19:20:09 AUTHOR: PILO LR EXP COSIGNER: URGENCY: STATUS: COMPLETED Version 2.2 Charting in accordance with [facility] [place] STANDARD (IDAES) ACUTE INPATIENT/REHABILITATION NURSING ADMISSION SCREENING, ASSESSMENT, AND STANDARDS OF CARE REASSESSMENT HANDOFF Safety check completed PAIN ASSESSMENT Patient's acceptable pain goal: 0 No pain Are you currently experiencing pain? No: Pain Score: 0 ENVIRONMENTAL SAFETY MANAGEMENT Implemented safety standards of care: -[place] to unit & environment -Adequate room lighting -Bed in low and locked position -Call light within reach -Personal items within reach -Traffic path in room free of clutter -Non-slip footwear -Upper/half length side rails up for bed mobility -Sensory aids within reach -Encourage patient to utilize sensory support Additional safety measures: Caregiver/family in attendance Close to nurses station Increased frequency of rounding NEUROLOGICAL Neurological Orientation: Oriented x4 Level of Consciousness (AVPU): Alert = Appears aware of and responsive to the environment on their own. Follows commands, opens eyes spontaneously, and tracks objects. Affect/behavior: Cooperative Calm RESPIRATORY Respirations: Unlabored Pattern: Regular INTEGUMENTARY/SKIN/WOUND - (INCLUDING KEYLA) SEE NOTE: VAAES SKIN INPECTION/ASSESSMENT /es/ PILO LR CHIEF METEOROLOGIST REGISTERED NURSE Signed: 08/18/2024 19:24 PILO LR [facility] Aug 18, 2024 05:32 PM FOUNDATION DIRECTOR CARE NOTE: LOCAL TITLE: [facility] ADL NOTE STL STANDARD TITLE: FOUNDATION DIRECTOR CARE NOTE DATE OF NOTE: AUG 18, 2024@17:32 ENTRY DATE: AUG 18, 2024@17:32:20 AUTHOR: DEEPA MACHUCA COSIGNER: URGENCY: STATUS: COMPLETED Geophysical Support SpecialistJava Development Manager Note Resident Name: CHET WALKER Facility: [facility] Neighborhood: [address] [place] [address] Tour: 08/18/2024 07:00 AM - 08/18/2024 09:00 PM ADL Items: BED MOBILITY: Self: Independent Support: No setup or physical help from staff. Entered By: Deepa Machuca At: 08/18/2024 5:28 PM TRANSFER: Self: Independent Support: No setup or physical help from staff. Entered By: Deepa Machuca At: 08/18/2024 5:28 PM WALK IN ROOM: Self: Activity Did Not Occur Support: ADL activity itself did not occur. Entered By: Deepa Machuca At: 08/18/2024 5:28 PM WALK IN CORRIDOR: Self: Activity Did Not Occur Support: ADL activity itself did not occur. Entered By: Deepa Machuca At: 08/18/2024 5:28 PM LOCOMOTION ON UNIT: Self: Independent Support: No setup or physical help from staff. Entered By: Deepa Machuca At: 08/18/2024 5:29 PM LOCOMOTION OFF UNIT: Self: Activity Did Not Occur Support: ADL activity itself did not occur. Entered By: Deepa Machuca At: 08/18/2024 5:29 PM DRESSING: Self: Independent Support: No setup or physical help from staff. Entered By: Deepa Machuca At: 08/18/2024 5:29 PM EATING: Self: Independent Support: No setup or physical help from staff. Entered By: Deepa Machuca At: 08/18/2024 5:29 PM TOILETING: Self: Independent Support: No setup or physical help from staff. Entered By: Deepa Machuca At: 08/18/2024 5:29 PM HYGIENE: Self: Independent Support: No setup or physical help from staff. Entered By: Deepa Machuca At: 08/18/2024 5:29 PM BATHING: Self: Activity Did Not Occur Support: ADL activity itself did not occur. Entered By: Deepa Machuca At: 08/18/2024 5:29 PM Events: ROUNDING: Entered By: Deepa Machuca At: 08/18/2024 5:29 PM Start Hour: 5 PM Locations: Chair in Room Room Environment: Cords Secure, Lights, No Obstructions, Call Light Within Reach, Personal Items Within Reach, Bed Height Check Safety Equipment: Low Position Bed Comfort Status: Awake NUTRITION: Entered By: Deepa Machuca At: 08/18/2024 5:30 PM Meal: Dinner Method: PO Location: Bedside Amount: 75% Entered By: Deepa Machuca At: 08/18/2024 5:30 PM Meal: Lunch Method: PO Location: Bedside Amount: 75% Entered By: Deepa Machuca At: 08/18/2024 5:30 PM Meal: Breakfast Method: PO Location: Bedside Amount: 100% MOOD, BEHAVIORAL & COGNITIVE: Entered By: Deepa Machuca At: 08/18/2024 5:31 PM Mood Observation: Happy/Content Behavioral: Pleasant/Cooperative Cognitive: Alert & Oriented Significant Change: No MOBILITY: Entered By: Deepa Machuca At: 08/18/2024 5:31 PM Out of Bed: Independent Devices: Manual Wheelchair Bed Rest: No BLADDER: Entered By: Deepa Machuca At: 08/18/2024 5:31 PM No Urinary Output: No # of Times: 2 Scheduled: No Continence: Continent Appliances: Toilet Volume: 0 cc/ml Urine Descriptions: Light Yellow BOWEL: Entered By: Deepa Machuca At: 08/18/2024 5:31 PM No Bowel Movement: Yes # of Times: 0 Scheduled: No Independent: No BATHING & ORAL CARE: Entered By: Deepa Machuca At: 08/18/2024 5:32 PM Attire: Personal Attire Oral Care: Independent Oral Education Provided: Melvina /es/ JAREK JETT IMMUNOLOGY SPECIALIST Signed: 08/18/2024 17:32 DEEPA MACHUCA [facility] Aug 18, 2024 10:00 AM NURSING NOTE: LOCAL TITLE: AYE SKIN INSPECTION/ASSESSMENT STANDARD TITLE: NURSING NOTE DATE OF NOTE: AUG 18, 2024@10:00 ENTRY DATE: AUG 18, 2024@13:58:02 AUTHOR: MARTHA JONES COSIGNER: URGENCY: STATUS: COMPLETED Assessment Type: SKIN REINSPECTION/REASSESSMENT SKIN INSPECTION: Skin Color: Usual for ethnicity Skin Temperature: Warm Skin Moisture: Normal Skin Turgor: Elastic (normal/immediate) Keyla Skin Assessment: The patient's Keyla Scale Score is 19. The patient is considered not at risk for development of pressure ulcers/injuries. Sensory perception -- ability to respond meaningfully to pressure-related discomfort Slightly limited. Moisture -- degree to which skin is exposed to moisture Rarely moist. Activity -- ability to change and control body position Walks occasionally. Mobility -- ability to change and control body position Slightly limited. Nutrition -- usual food intake patterns Adequate. Friction and shear No apparent problem. INTERVENTIONS: The pressure injury interventions were not needed - patient/resident is not at risk. RISK FACTORS THAT INCREASE RISK FOR DEVELOPING PRESSURE INJURIES The patient/resident does not have any additional risk factors. Wound - other than pressure ulcer/injury (includes open surgical wounds/incisions): Location: sternal incision, left forearm, left chest pacer site-steri strips, abdominal incision No Edema Wound drainage none. /es/ MARTHA JONES CHIEF METEOROLOGIST REGISTERED NURSE Signed: 08/18/2024 15:34 MARTHA JONES [facility] Aug 18, 2024 10:00 AM NURSING INPATIENT NOTE: LOCAL TITLE: [facility] ACUTE INPATIENT NSG SHIFT ASSESSMENT STANDARD TITLE: NURSING INPATIENT NOTE DATE OF NOTE: AUG 18, 2024@10:00 ENTRY DATE: AUG 18, 2024@13:52:22 AUTHOR: MARTHA JONES EXP COSIGNER: URGENCY: STATUS: COMPLETED Version 2.2 Charting in accordance with [facility] [place] STANDARD (IDAES) ACUTE INPATIENT/REHABILITATION NURSING ADMISSION SCREENING, ASSESSMENT, AND STANDARDS OF CARE ASSESSMENT HANDOFF Bedside report and handoff completed Safety check completed PAIN ASSESSMENT Patient's acceptable pain goal: 0 No pain Are you currently experiencing pain? No: Pain Score: 0 MOSQUEDA FALL SCALE & TIPS PROGRAM Mosqueda Fall Scale: The Mosqueda Fall scale was performed and score was 40. This is indicative of moderate risk for falls. History of falling: immediate or within 3 months? No Secondary diagnosis: Yes Ambulatory aid: Crutches/cane(s)/walker Intravenous therapy/Heparin lock: No Gait/Transferring: Weakness Mental Status: Oriented to own ability/knows own limitations Fall Tailoring Interventions for Patient Safety (TIPS) Fall TIPS reviewed with patient: Yes Interventions: Assistance out of bed: Call for assistance before getting out of bed ENVIRONMENTAL SAFETY MANAGEMENT Implemented safety standards of care: -[place] to unit & environment -Adequate room lighting -Bed in low and locked position -Call light within reach -Personal items within reach -Traffic path in room free of clutter -Non-slip footwear -Upper/half length side rails up for bed mobility -Sensory aids within reach -Encourage patient to utilize sensory support NEUROLOGICAL Neurological Orientation: Oriented x4 Level of Consciousness (AVPU): Alert = Appears aware of and responsive to the environment on their own. Follows commands, opens eyes spontaneously, and tracks objects. Affect/behavior: Cooperative Calm CARDIOVASCULAR Heart Sounds: Normal (S1S2) Edema: None RESPIRATORY Respirations: Unlabored Pattern: Regular Breath Sounds Auscultated: Anterior and posterior GASTROINTESTINAL Last bowel movement: 08/18/2024 Bowel movement reported by patient-unwitnessed Passing flatus Elimination: Continent Abdominal Description: Flat Palpation: Soft, Non-tender Bowel Sounds: RUQ: Active LUQ: Active RLQ: Active LLQ: Active GENITOURINARY Elimination: Continent INTEGUMENTARY/SKIN/WOUND - (INCLUDING KEYLA) SEE NOTE: VAAES SKIN INPECTION/ASSESSMENT ACTIVITIES OF DAILY LIVING Hygiene ADLs: Oral Care: Non-ventilator patient: Patient teeth brushed: Independently PSYCHOSOCIAL Type of Emotional Support Provided: 1:1 discussion ADULT EDUCATION Education provided: Topic 1: safety Specific Content: educated on fall prevention Method: Verbal Provided to: Patient Patient understanding of education content: Verbalized understanding /shen/ MARTHA YU REGISTERED NURSE Signed: 08/18/2024 15:34 MARTHA JONES [facility] Aug 18, 2024 03:06 AM NURSING INPATIENT NOTE: LOCAL TITLE: [facility] PATIENT SAFETY CHECK STL STANDARD TITLE: NURSING INPATIENT NOTE DATE OF NOTE: AUG 18, 2024@03:06 ENTRY DATE: AUG 18, 2024@03:06:26 AUTHOR: MARY JONES COSIGNER: URGENCY: STATUS: COMPLETED BEDSIDE SAFETY CHECK STL A visual sweep of the patient's room for any physical or environmental safety concerns was completed and education provided to patient regarding their personal safety concerns. /shen/ AIEME BERRIOS, RN REGISTERED NURSE Signed: 08/18/2024 03:06 MARY JONES [facility] Aug 17, 2024 10:02 PM NURSING NOTE: LOCAL TITLE: VAAES SKIN INSPECTION/ASSESSMENT STANDARD TITLE: NURSING NOTE DATE OF NOTE: AUG 17, 2024@22:02 ENTRY DATE: AUG 18, 2024@03:02:52 AUTHOR: MARY JONESIGNER: URGENCY: STATUS: COMPLETED Assessment Type: SKIN REINSPECTION/REASSESSMENT SKIN INSPECTION: Skin Color: Usual for ethnicity Skin Temperature: Warm Skin Moisture: Normal Skin Turgor: Elastic (normal/immediate) Keyla Skin Assessment: The patient's Keyla Scale Score is 21. The patient is considered not at risk for development of pressure ulcers/injuries. Sensory perception -- ability to respond meaningfully to pressure-related discomfort No impairment. Moisture -- degree to which skin is exposed to moisture Rarely moist. Activity -- ability to change and control body position Walks frequently. Mobility -- ability to change and control body position No limitation. Nutrition -- usual food intake patterns Adequate. Friction and shear Potential problem. INTERVENTIONS: The pressure injury interventions were not needed - patient/resident is not at risk. SKIN INTEGRITY: Intact /shen/ AIMEE BERRIOS, RN REGISTERED NURSE Signed: 08/18/2024 03:05 MARY JONES [facility] Aug 17, 2024 09:55 PM NURSING INPATIENT NOTE: LOCAL TITLE: [facility] ACUTE INPATIENT NSG SHIFT ASSESSMENT STANDARD TITLE: NURSING INPATIENT NOTE DATE OF NOTE: AUG 17, 2024@21:55 ENTRY DATE: AUG 18, 2024@02:56:13 AUTHOR: MARY JONES EXP COSIGNER: URGENCY: STATUS: COMPLETED Version 2.2 Charting in accordance with [facility] [place] STANDARD (IDAES) ACUTE INPATIENT/REHABILITATION NURSING ADMISSION SCREENING, ASSESSMENT, AND STANDARDS OF CARE ASSESSMENT HANDOFF Safety check completed Comment: assumed care @ 1940 PAIN ASSESSMENT Patient's acceptable pain goal: Are you currently experiencing pain? No: Pain Score: 0 MOSQUEDA FALL SCALE & TIPS PROGRAM Mosqueda Fall Scale: The Mosqueda Fall scale was performed and score was 40. This is indicative of moderate risk for falls. History of falling: immediate or within 3 months? No Secondary diagnosis: Yes Ambulatory aid: Crutches/cane(s)/walker Intravenous therapy/Heparin lock: No Gait/Transferring: Weakness Mental Status: Oriented to own ability/knows own limitations ENVIRONMENTAL SAFETY MANAGEMENT Implemented safety standards of care: -[place] to unit & environment -Adequate room lighting -Bed in low and locked position -Call light within reach -Personal items within reach -Traffic path in room free of clutter -Non-slip footwear -Upper/half length side rails up for bed mobility -Sensory aids within reach -Encourage patient to utilize sensory support NEUROLOGICAL Neurological Orientation: Oriented x4 Level of Consciousness (AVPU): Alert = Appears aware of and responsive to the environment on their own. Follows commands, opens eyes spontaneously, and tracks objects. Affect/behavior: Cooperative Calm NEUROMUSCULAR/NEUROVASCULAR EXTREMITIES ASSESSMENT Strength: Inclinometer Tester Bilateral: Weak Upper Extremity Bilateral: Moves against some resistance Lower Extremity Bilateral: Moves against some resistance Sensation: Upper Extremity Sensation Bilateral: Intact Lower Extremity Sensation Bilateral: Intact Temperature: Upper Extremity Temperature Bilateral: Warm Lower Extremity Temperature Bilateral: Warm CARDIOVASCULAR Heart Sounds: Normal (S1S2) Heart Rate/Rhythm (without school bus monitor): Regular Capillary Refill: All 4 extremities, less than or equal to 3 seconds. Peripheral Pulses: All 4 extremities, 3+ normal. Edema: Present Dependent Location: feet bilateral RESPIRATORY Respirations: Unlabored Pattern: Regular Breath Sounds Auscultated: Anterior and posterior Left Upper Lobe: Clear Right Upper Lobe: Clear Right Middle Lobe: Clear Left Lower Lobe: Clear Right Lower Lobe: Clear Comment: diminished GASTROINTESTINAL Last bowel movement: 08/17/2024 Elimination: Continent Abdominal Description: Protuberant (central obesity) Palpation: Soft Bowel Sounds: RUQ: Active LUQ: Active RLQ: Active LLQ: Active GENITOURINARY Elimination: Continent INTEGUMENTARY/SKIN/WOUND - (INCLUDING KEYLA) SEE NOTE: VAAES SKIN INPECTION/ASSESSMENT ACTIVITIES OF DAILY LIVING Hygiene ADLs: Oral Care: Non-ventilator patient: Patient teeth brushed: Independently MOBILITY Mobility Status: Independent: Able to stand and step without staff assistance PSYCHOSOCIAL Type of Emotional Support Provided: Ventilation of feelings encouraged ADULT EDUCATION Education provided: Topic 1: Safety Specific Content: Ensure call light is within reach. Method: Verbal Provided to: Patient Patient understanding of education content: Verbalized understanding /es/ AIMEE BERRIOS, RN REGISTERED NURSE Signed: 08/18/2024 03:02 MARY JONES [facility] Aug 17, 2024 06:40 PM FOUNDATION DIRECTOR CARE NOTE: LOCAL TITLE: [facility] ADL NOTE ST STANDARD TITLE: SNF CARE NOTE DATE OF NOTE: AUG 17, 2024@18:40 ENTRY DATE: AUG 17, 2024@18:40:28 AUTHOR: MARCIE LEE COSIGNER: URGENCY: STATUS: COMPLETED Geophysical Support SpecialistJava Development Manager Note Resident Name: CHET WALKER Facility: [facility] Neighborhood: [address] [place] Tour: 08/17/2024 07:30 AM - 08/18/2024 08:01 PM ADL Items: BED MOBILITY: Self: Independent Support: No setup or physical help from staff. Entered By: MARCIE LEE At: 08/17/2024 6:36 PM TRANSFER: Self: Supervision Support: Setup help only. Entered By: MARCIE LEE At: 08/17/2024 6:36 PM WALK IN ROOM: Self: Supervision Support: No setup or physical help from staff. Entered By: MARCIE LEE At: 08/17/2024 6:36 PM WALK IN CORRIDOR: Self: Activity Did Not Occur Support: ADL activity itself did not occur. Entered By: MARCIE LEE At: 08/17/2024 6:37 PM LOCOMOTION ON UNIT: Self: Activity Did Not Occur Support: ADL activity itself did not occur. Entered By: MARCIE LEE At: 08/17/2024 6:37 PM LOCOMOTION OFF UNIT: Self: Activity Did Not Occur Support: ADL activity itself did not occur. Entered By: MARCIE LEE At: 08/17/2024 6:37 PM DRESSING: Self: Independent Support: Setup help only. Entered By: MARCIE LEE At: 08/17/2024 6:37 PM EATING: Self: Independent Support: No setup or physical help from staff. Entered By: MARCIE LEE At: 08/17/2024 6:37 PM TOILETING: Self: Independent Support: No setup or physical help from staff. Entered By: MARCIE LEE At: 08/17/2024 6:37 PM HYGIENE: Self: Independent Support: No setup or physical help from staff. Entered By: MARCIE LEE At: 08/17/2024 6:37 PM BATHING: Self: Independent Support: Setup help only. Entered By: MARCIE LEE At: 08/17/2024 6:37 PM Events: ROUNDING: Entered By: MARCIE LEE At: 08/17/2024 6:37 PM Start Hour: 6 PM Locations: Bed in Room Room Environment: Cords Secure, Lights, No Obstructions, Call Light Within Reach, Personal Items Within Reach, Bed Height Check NUTRITION: Entered By: MARCIE LEE At: 08/17/2024 6:38 PM Meal: Dinner Method: PO Location: Bedside Amount: 75% Entered By: MARCIE LEE At: 08/17/2024 6:38 PM Meal: Lunch Method: PO Location: Bedside Amount: 100% MOOD, BEHAVIORAL & COGNITIVE: Entered By: MARCIE LEE At: 08/17/2024 6:38 PM Mood Observation: Happy/Content Cognitive: Alert & Oriented Significant Change: No MOBILITY: Entered By: MARCIE LEE At: 08/17/2024 6:38 PM Out of Bed: Independent Devices: Standard Walker Bed Rest: No BOWEL: Entered By: MARCIE LEE At: 08/17/2024 6:39 PM No Bowel Movement: No # of Times: 1 Scheduled: No Independent: No Appliances: Toilet Size: BM Output - Large Texture: Soft BATHING & ORAL CARE: Entered By: MARCIE LEE At: 08/17/2024 6:39 PM Attire: Pajamas/Gown Bath Type: Partial Bath Oral Care: Independent Oral Education Provided: Melvina /shen/ MARCIE LEE RN REGISTERED NURSE Signed: 08/17/2024 18:40 MARCIE LEE [facility] Aug 17, 2024 03:29 PM NURSING NOTE: LOCAL TITLE: [facility] SKIN INSPECTION/ASSESSMENT STANDARD TITLE: NURSING NOTE DATE OF NOTE: AUG 17, 2024@15:29 ENTRY DATE: AUG 17, 2024@15:30:27 AUTHOR: MARCIE LEE EXP COSIGNER: URGENCY: STATUS: COMPLETED Assessment Type: SKIN REINSPECTION/REASSESSMENT SKIN INSPECTION: Skin Color: Usual for ethnicity Skin Temperature: Warm Skin Moisture: Normal Skin Turgor: Elastic (normal/immediate) Keyla Skin Assessment: The patient's Keyla Scale Score is 14. The patient is at moderate risk for development of pressure ulcers/injuries. Sensory perception -- ability to respond meaningfully to pressure-related discomfort Slightly limited. Moisture -- degree to which skin is exposed to moisture Occasionally moist. Activity -- ability to change and control body position Chair fast. Mobility -- ability to change and control body position Nutrition -- usual food intake patterns Adequate. Friction and shear No apparent problem. INTERVENTIONS: No change in previous interventions as listed below Pressure Ulcer-Education 08/11/2024 Provide Education On Cause/Prevention Pressure Ulcer-Friction/Shear 08/11/2024 Elevate Head of Bed For Meals Pressure Ulcer-Moisture 08/11/2024 Maintain Clean Dry Skin Pressure Ulcer-Nutrition 08/11/2024 Provide/Encourage Oral Care As Needed Pressure Ulcer-Pressure Reducing 08/11/2024 Frequent Position Changes Pressure Ulcer-Remobilize 08/11/2024 Encourage Activity As Tolerated Vaaes Pressure Injury Interventions 08/13/2024 Vaaes Pressure Injury Int Not Needed RISK FACTORS THAT INCREASE RISK FOR DEVELOPING PRESSURE INJURIES: The patient/resident has the following: Neuropathy Wound - other than pressure ulcer/injury (includes open surgical wounds/incisions): Location: glued incisions to mid-sternum, transverse upper abdomen, left forearm, left chest pacer site No Edema Wound drainage none. /shen/ MARCIE A ROSA,RN REGISTERED NURSE Signed: 08/17/2024 15:49 MARCIE LEE [facility] Aug 17, 2024 02:27 PM ADMINISTRATIVE NOTE: LOCAL TITLE: ADMINISTRATIVE STL STANDARD TITLE: ADMINISTRATIVE NOTE DATE OF NOTE: AUG 17, 2024@14:27 ENTRY DATE: AUG 17, 2024@14:27:55 AUTHOR: NEETU MARTINS EXP COSIGNER: URGENCY: STATUS: COMPLETED Received medical records(discharge summary) via fax from [facility]. Placed in pcp folder for review. /shen/ NEETU GUTIERREZ Signed: 08/17/2024 14:28 NEETU MARTINS [facility] Aug 17, 2024 12:47 PM NURSING INPATIENT NOTE: LOCAL TITLE: [facility] ACUTE INPATIENT NSG SHIFT ASSESSMENT STANDARD TITLE: NURSING INPATIENT NOTE DATE OF NOTE: AUG 17, 2024@12:47 ENTRY DATE: AUG 17, 2024@12:47:04 AUTHOR: MARCIE LEE EXP COSIGNER: URGENCY: STATUS: COMPLETED Version 2.2 Charting in accordance with [place] APPROVED [place] STANDARD (IDAES) ACUTE INPATIENT/REHABILITATION NURSING ADMISSION SCREENING, ASSESSMENT, AND STANDARDS OF CARE ASSESSMENT PAIN ASSESSMENT Patient's acceptable pain goal: Are you currently experiencing pain? No: MOSQUEDA FALL SCALE & TIPS PROGRAM Mos[place] Fall Scale: The [place] Fall scale was performed and score was 40. This is indicative of moderate risk for falls. History of falling: immediate or within 3 months? No Secondary diagnosis: Yes Ambulatory aid: Crutches/cane(s)/walker Intravenous therapy/Heparin lock: No Gait/Transferring: Weakness Mental Status: Oriented to own ability/knows own limitations Fall Tailoring Interventions for Patient Safety (TIPS) Fall TIPS reviewed with patient: Yes Interventions: Walking Aids: Walker Assistance out of bed: Call for assistance before getting out of bed ENVIRONMENTAL SAFETY MANAGEMENT Implemented safety standards of care: -[place] to unit & environment -Adequate room lighting -Bed in low and locked position -Call light within reach -Personal items within reach -Traffic path in room free of clutter -Non-slip footwear -Upper/half length side rails up for bed mobility -Sensory aids within reach -Encourage patient to utilize sensory support NEUROLOGICAL Neurological Orientation: Oriented x4 Level of Consciousness (AVPU): Alert = Appears aware of and responsive to the environment on their own. Follows commands, opens eyes spontaneously, and tracks objects. Affect/behavior: Cooperative Calm NEUROMUSCULAR/NEUROVASCULAR EXTREMITIES ASSESSMENT Strength: Inclinometer Tester Bilateral: Strong Upper Extremity Bilateral: Full strength Lower Extremity Bilateral: Full strength Sensation: Upper Extremity Sensation Bilateral: Intact Lower Extremity Sensation Bilateral: Intact CARDIOVASCULAR Heart Rate/Rhythm (without school bus monitor): Regular Capillary Refill: All 4 extremities, less than or equal to 3 seconds. Peripheral Pulses: All 4 extremities, 3+ normal. RESPIRATORY Respirations: Unlabored Pattern: Regular Breath Sounds Auscultated: Left Upper Lobe: Clear Right Upper Lobe: Clear Right Middle Lobe: Clear Left Lower Lobe: Clear Right Lower Lobe: Clear GASTROINTESTINAL Last bowel movement: 10/10/24 Elimination: Continent Palpation: Soft, Non-tender Bowel Sounds: RUQ: Active LUQ: Active RLQ: Active LLQ: Active GENITOURINARY Elimination: Continent INTEGUMENTARY/SKIN/WOUND - (INCLUDING KEYLA) SEE NOTE: VAAES SKIN INPECTION/ASSESSMENT MOBILITY Mobility Status: Minimum assist: Stands with support only (Unsteady or requires verbal cueing) Equipment utilized: Walker Gait: Steady PSYCHOSOCIAL Type of Emotional Support Provided: Hospitalization discussion, Treatment discussion ADULT EDUCATION Comment: discussed meds /shen/ MARCIE LEE RN REGISTERED NURSE Signed: 08/17/2024 12:52 MARCIE LEE [facility] Aug 17, 2024 11:31 AM NURSING INPATIENT NOTE: LOCAL TITLE: [facility] NURSING FREQUENT DOCUMENTATION STANDARD TITLE: NURSING INPATIENT NOTE DATE OF NOTE: AUG 17, 2024@11:31 ENTRY DATE: AUG 17, 2024@11:31:23 AUTHOR: MARCIE LEE EXP COSIGNER: URGENCY: STATUS: COMPLETED Version 2.4 Charting in accordance with [place] APPROVED [place] STANDARD (IDAES) ACUTE INPATIENT/REHABILITATION NURSING ADMISSION SCREENING, ASSESSMENT, AND STANDARDS OF CARE NATIONAL EARLY WARNING SCORE (NEWS) The vital signs below were used for scoring: Temperature: 97.2 Pulse: 85 Blood Pressure: 126/80 Respiration: 18 Pulse Oximetry: 96 The NEWS total is 0. 1. Temperature (C/F): Score = 0 36.1 - 38.0 C (96.9 - 100.4 F) 2. Pulse: Score = 0 51-90 3. Respirations: Score = 0 12-20 4. Blood Pressure (Only Systolic BP, mmHg): Score = 0 111-219 5. Pulse Oximetry: Score = 0 96% or greater 6. Supplemental oxygen in use: Score = 0 No 7. AVPU: Score = 0 Alert /shen/ MARCIE LEE RN REGISTERED NURSE Signed: 08/17/2024 11:32 MARCIE LEE [facility] Aug 17, 2024 01:46 AM NURSING INPATIENT NOTE: LOCAL TITLE: [place] PATIENT SAFETY CHECK STL STANDARD TITLE: NURSING INPATIENT NOTE DATE OF NOTE: AUG 17, 2024@01:46 ENTRY DATE: AUG 17, 2024@02:01:47 AUTHOR: JOSSELINE ANNA EXP COSIGNER: URGENCY: STATUS: COMPLETED BEDSIDE SAFETY CHECK STL A visual sweep of the patient's room for any physical or environmental safety concerns was completed and education provided to patient regarding their personal safety concerns. /shen/ JOSSELINE ANNA REGISTERED NURSE Signed: 08/17/2024 02:04 JOSSELINE ANNA [facility] Aug 17, 2024 01:43 AM NURSING INPATIENT NOTE: LOCAL TITLE: [facility] [place] PATIENT SAFETY CHECK STL STANDARD TITLE: NURSING INPATIENT NOTE DATE OF NOTE: AUG 17, 2024@01:43 ENTRY DATE: AUG 17, 2024@01:43:25 AUTHOR: JOSSELINE ANNA EXP COSIGNER: URGENCY: STATUS: COMPLETED BEDSIDE SAFETY CHECK STL A visual sweep of the patient's room for any physical or environmental safety concerns was completed and education provided to patient regarding their personal safety concerns. /camryn ANNA REGISTERED NURSE Signed: 08/17/2024 01:45 JOSSELINE ANNA [facility] Aug 16, 2024 08:55 PM NURSING NOTE: LOCAL TITLE: VAAES SKIN INSPECTION/ASSESSMENT STANDARD TITLE: NURSING NOTE DATE OF NOTE: AUG 16, 2024@20:55 ENTRY DATE: AUG 16, 2024@20:55:24 AUTHOR: JOSSELINE ANNA COSIGNER: URGENCY: STATUS: COMPLETED Assessment Type: SKIN REINSPECTION/REASSESSMENT SKIN INSPECTION: Skin Color: Usual for ethnicity Skin Temperature: Warm Skin Moisture: Normal Skin Turgor: Elastic (normal/immediate) Keyla Skin Assessment: The patient's Keyla Scale Score is 17. The patient is at mild risk for development of pressure ulcer/injury. Sensory perception -- ability to respond meaningfully to pressure-related discomfort Slightly limited. Moisture -- degree to which skin is exposed to moisture Occasionally moist. Activity -- ability to change and control body position Walks occasionally. Mobility -- ability to change and control body position Slightly limited. Nutrition -- usual food intake patterns Adequate. Friction and shear Potential problem. SKIN ALTERATIONS: Pressure Ulcer/Injury Documentation from the past year: No data available SKIN ALTERATIONS: Wound Documentation from the past year: Skin Assessment 08/16/2024 Skin Integrity - Wound sternal incision, chest tube abdomen,left forearm 08/16/2024 Skin Integrity - Wound incisions glued/DE ALCOHOLIZER-mid sternal, transverse upper abdomen, left chest pacer, left forearm 08/15/2024 Skin Integrity - Wound sternal incision, transverse upper abdomen, left forearm 08/14/2024 Skin Integrity - Wound 08/14/2024 Skin Integrity - Wound mis sternal incision/transverse abdominal incision,left pacemaker incision,left forearm incision 08/13/2024 Skin Integrity - Wound mid-sternal incision, transverse abdominal incision, left forearm incision, left chest pacer site 08/12/2024 Skin Integrity - Wound mid-sternal incision 08/11/2024 Skin Integrity - Wound m 08/11/2024 Skin Integrity - Wound Wound - other than pressure ulcer/injury (includes open surgical wounds/incisions): Location: chest midline, transverse upper abdomen, left chest pacer, left forearm No Edema Wound drainage none. SKIN/WOUND DRESSING: Location(s): mid-line chest, transverse upper abdomen, left chest pacer, left forearm Open to air /es/ JOSSELINE ANNA REGISTERED NURSE Signed: 08/16/2024 21:01 JOSSELINE ANNA [facility] Aug 16, 2024 08:44 PM NURSING INPATIENT NOTE: LOCAL TITLE: [facility] ACUTE INPATIENT NSG SHIFT ASSESSMENT STANDARD TITLE: NURSING INPATIENT NOTE DATE OF NOTE: AUG 16, 2024@20:44 ENTRY DATE: AUG 16, 2024@20:44:55 AUTHOR: JOSSELINE ANNA EXP COSIGNER: URGENCY: STATUS: COMPLETED Version 2.2 Charting in accordance with [facility] [place] STANDARD (IDAES) ACUTE INPATIENT/REHABILITATION NURSING ADMISSION SCREENING, ASSESSMENT, AND STANDARDS OF CARE ASSESSMENT HANDOFF Bedside report and handoff completed Safety check completed PAIN ASSESSMENT Patient's acceptable pain goal: Are you currently experiencing pain? No: MOSQUEDA FALL SCALE & TIPS PROGRAM Mosqueda Fall Scale: The Mosqueda Fall scale was performed and score was 40. This is indicative of moderate risk for falls. History of falling: immediate or within 3 months? No Secondary diagnosis: Yes Ambulatory aid: Crutches/cane(s)/walker Intravenous therapy/Heparin lock: No Gait/Transferring: Weakness Mental Status: Oriented to own ability/knows own limitations Fall Tailoring Interventions for Patient Safety (TIPS) Fall TIPS reviewed with patient: Yes Interventions: Communicate recent fall or risk of harm Assistance out of bed: Bed rest Call for assistance before getting out of bed ENVIRONMENTAL SAFETY MANAGEMENT Implemented safety standards of care: -[place] to unit & environment -Adequate room lighting -Bed in low and locked position -Call light within reach -Personal items within reach -Traffic path in room free of clutter -Non-slip footwear -Upper/half length side rails up for bed mobility -Sensory aids within reach -Encourage patient to utilize sensory support NEUROLOGICAL Neurological Orientation: Oriented x4 Level of Consciousness (AVPU): Alert = Appears aware of and responsive to the environment on their own. Follows commands, opens eyes spontaneously, and tracks objects. Affect/behavior: Cooperative Calm CARDIOVASCULAR Heart Rate/Rhythm (without school bus monitor): Regular Edema: None RESPIRATORY Respirations: Unlabored Pattern: Regular GASTROINTESTINAL Last bowel movement: 10/7/24 Elimination: Continent Palpation: Soft, Non-tender GENITOURINARY Elimination: Continent INTEGUMENTARY/SKIN/WOUND - (INCLUDING KEYLA) SEE NOTE: VAAES SKIN INPECTION/ASSESSMENT ACTIVITIES OF DAILY LIVING Hygiene ADLs: Oral Care: Non-ventilator patient: Patient dentures/partial plates cleaned: With assistance The was educated that poor oral hygiene increases the risk of hospital acquired pneumonia and dental problems like gingivitis and tooth decay. was educated using their preferred method and verbalized understanding. PSYCHOSOCIAL Type of Emotional Support Provided: 1:1 discussion, Ventilation of feelings encouraged /es/ JOSSELINE ANNA REGISTERED NURSE Signed: 08/16/2024 20:55 JOSSELINE ANNA [facility] Aug 16, 2024 05:45 PM FOUNDATION DIRECTOR CARE NOTE: LOCAL TITLE: [facility] ADL NOTE STL STANDARD TITLE: SNF CARE NOTE DATE OF NOTE: AUG 16, 2024@17:45 ENTRY DATE: AUG 16, 2024@17:45:07 AUTHOR: DEEPA MACHUCA COSIGNER: URGENCY: STATUS: COMPLETED Geophysical Support SpecialistJava Development Manager Note Resident Name: CHET WALKER Facility: [facility] Neighborhood: [address] [place] [address] Tour: 08/16/2024 07:00 AM - 08/16/2024 09:00 PM ADL Items: BED MOBILITY: Self: Independent Support: No setup or physical help from staff. Entered By: Deepa Machuca At: 08/16/2024 3:12 PM TRANSFER: Self: Independent Support: No setup or physical help from staff. Entered By: Deepa Machuca At: 08/16/2024 3:12 PM WALK IN ROOM: Self: Limited Assistance Support: One person physical assistance. Entered By: Deepa Machuca At: 08/16/2024 3:12 PM WALK IN CORRIDOR: Self: Activity Did Not Occur Support: ADL activity itself did not occur. Entered By: Deepa Machuca At: 08/16/2024 3:12 PM LOCOMOTION ON UNIT: Self: Independent Support: No setup or physical help from staff. Entered By: Deepa Machuca At: 08/16/2024 3:13 PM LOCOMOTION OFF UNIT: Self: Activity Did Not Occur Support: ADL activity itself did not occur. Entered By: Deepa Machuca At: 08/16/2024 3:13 PM DRESSING: Self: Independent Support: No setup or physical help from staff. Entered By: Deepa Machuca At: 08/16/2024 3:13 PM EATING: Self: Independent Support: No setup or physical help from staff. Entered By: Deepa Machuca At: 08/16/2024 3:13 PM TOILETING: Self: Independent Support: No setup or physical help from staff. Entered By: Deepa Machuca At: 08/16/2024 3:13 PM HYGIENE: Self: Independent Support: No setup or physical help from staff. Entered By: Deepa Machuca At: 08/16/2024 3:13 PM BATHING: Self: Limited Assistance Support: One person physical assistance. Entered By: Deepa Machuca At: 08/16/2024 3:13 PM Events: ROUNDING: Entered By: Deepa Machuca At: 08/16/2024 3:13 PM Start Hour: 3 PM Locations: Chair in Room Room Environment: Cords Secure, Lights, No Obstructions, Call Light Within Reach, Personal Items Within Reach, Bed Height Check Safety Equipment: Low Position Bed Comfort Status: Awake NUTRITION: Entered By: Deepa Machuca At: 08/16/2024 5:44 PM Meal: Dinner Method: PO Location: Bedside Amount: 75% Entered By: Deepa Machuca At: 08/16/2024 3:14 PM Meal: Lunch Method: PO Location: Bedside Amount: 75% Entered By: Deepa Machuca At: 08/16/2024 3:14 PM Meal: Breakfast Method: PO Location: Bedside Amount: 75% MOOD, BEHAVIORAL & COGNITIVE: Entered By: Deepa Machuca At: 08/16/2024 3:14 PM Mood Observation: Happy/Content Behavioral: Pleasant/Cooperative Cognitive: Alert & Oriented Significant Change: No MOBILITY: Entered By: Deepa Machuca At: 08/16/2024 3:14 PM Out of Bed: Assisted Devices: Manual Wheelchair Bed Rest: No BLADDER: Entered By: Deepa Machuca At: 08/16/2024 3:14 PM No Urinary Output: No # of Times: 2 Scheduled: No Continence: Continent Appliances: Toilet Volume: 0 cc/ml Urine Descriptions: Light Yellow BOWEL: Entered By: Deepa Machuca At: 08/16/2024 3:15 PM No Bowel Movement: Yes # of Times: 0 Scheduled: No Independent: No BATHING & ORAL CARE: Entered By: Deepa Machuca At: 08/16/2024 3:15 PM Attire: Personal Attire Oral Care: Independent Oral Education Provided: Melvina /es/ JAREK JETT IMMUNOLOGY SPECIALIST Signed: 08/16/2024 17:45 DEEPA MACHUCA [facility] Aug 16, 2024 03:04 PM NURSING NOTE: LOCAL TITLE: [place] SKIN INSPECTION/ASSESSMENT STANDARD TITLE: NURSING NOTE DATE OF NOTE: AUG 16, 2024@15:04 ENTRY DATE: AUG 16, 2024@15:04:36 AUTHOR: MARCIE LEE COSIGNER: URGENCY: STATUS: COMPLETED Assessment Type: SKIN REINSPECTION/REASSESSMENT SKIN INSPECTION: Skin Color: Usual for ethnicity Skin Temperature: Warm Skin Moisture: Normal Skin Turgor: Elastic (normal/immediate) Keyla Skin Assessment: The patient's Keyla Scale Score is 19. The patient is considered not at risk for development of pressure ulcers/injuries. Sensory perception -- ability to respond meaningfully to pressure-related discomfort Slightly limited. Moisture -- degree to which skin is exposed to moisture Rarely moist. Activity -- ability to change and control body position Walks occasionally. Mobility -- ability to change and control body position Slightly limited. Nutrition -- usual food intake patterns Adequate. Friction and shear No apparent problem. INTERVENTIONS: No change in previous interventions as listed below Pressure Ulcer-Education 08/11/2024 Provide Education On Cause/Prevention Pressure Ulcer-Friction/Shear 08/11/2024 Elevate Head of Bed For Meals Pressure Ulcer-Moisture 08/11/2024 Maintain Clean Dry Skin Pressure Ulcer-Nutrition 08/11/2024 Provide/Encourage Oral Care As Needed Pressure Ulcer-Pressure Reducing 08/11/2024 Frequent Position Changes Pressure Ulcer-Remobilize 08/11/2024 Encourage Activity As Tolerated Vaaes Pressure Injury Interventions 08/13/2024 Vaaes Pressure Injury Int Not Needed RISK FACTORS THAT INCREASE RISK FOR DEVELOPING PRESSURE INJURIES The patient/resident does not have any additional risk factors. Wound - other than pressure ulcer/injury (includes open surgical wounds/incisions): Location: incisions glued/DE ALCOHOLIZER-mid sternal, transverse upper abdomen, left chest pacer, left forearm No Edema Wound drainage none. /shen/ MARCIE LEERN REGISTERED NURSE Signed: 08/16/2024 15:07 MARCIE LEE [facility] Aug 16, 2024 09:46 AM NURSING INPATIENT NOTE: LOCAL TITLE: [facility] ACUTE INPATIENT NSG SHIFT ASSESSMENT STANDARD TITLE: NURSING INPATIENT NOTE DATE OF NOTE: AUG 16, 2024@09:46 ENTRY DATE: AUG 16, 2024@09:46:07 AUTHOR: MARCIE LEE EXP COSIGNER: URGENCY: STATUS: COMPLETED Version 2.2 Charting in accordance with [place] [facility] [place] STANDARD (IDAES) ACUTE INPATIENT/REHABILITATION NURSING ADMISSION SCREENING, ASSESSMENT, AND STANDARDS OF CARE ASSESSMENT PAIN ASSESSMENT Patient's acceptable pain goal: Are you currently experiencing pain? No: MOSQUEDA FALL SCALE & TIPS PROGRAM Mosqueda Fall Scale: The Mosqueda Fall scale was performed and score was 40. This is indicative of moderate risk for falls. History of falling: immediate or within 3 months? No Secondary diagnosis: Yes Ambulatory aid: Crutches/cane(s)/walker Intravenous therapy/Heparin lock: No Gait/Transferring: Weakness Mental Status: Oriented to own ability/knows own limitations Fall Tailoring Interventions for Patient Safety (TIPS) Fall TIPS reviewed with patient: Yes Interventions: Walking Aids: Walker Assistance out of bed: Call for assistance before getting out of bed ENVIRONMENTAL SAFETY MANAGEMENT Implemented safety standards of care: -[place] to unit & environment -Adequate room lighting -Bed in low and locked position -Call light within reach -Personal items within reach -Traffic path in room free of clutter -Non-slip footwear -Upper/half length side rails up for bed mobility -Sensory aids within reach -Encourage patient to utilize sensory support NEUROLOGICAL Neurological Orientation: Oriented x4 Level of Consciousness (AVPU): Alert = Appears aware of and responsive to the environment on their own. Follows commands, opens eyes spontaneously, and tracks objects. Affect/behavior: Cooperative Calm NEUROMUSCULAR/NEUROVASCULAR EXTREMITIES ASSESSMENT Strength: Inclinometer Tester Bilateral: Strong Upper Extremity Bilateral: Full strength Lower Extremity Bilateral: Moves against some resistance Sensation: Upper Extremity Sensation Bilateral: Intact Lower Extremity Sensation Bilateral: Intact Comment: neuropathy in feet Temperature: Upper Extremity Temperature Bilateral: Warm Lower Extremity Temperature Bilateral: Warm CARDIOVASCULAR Heart Rate/Rhythm (without school bus monitor): Regular Capillary Refill: All 4 extremities, less than or equal to 3 seconds. Peripheral Pulses: All 4 extremities, 3+ normal. Edema: None RESPIRATORY Respirations: Unlabored Breath Sounds Auscultated: Left Upper Lobe: Clear Right Upper Lobe: Clear Right Middle Lobe: Clear Left Lower Lobe: Clear Right Lower Lobe: Clear GASTROINTESTINAL Elimination: Continent Palpation: Soft, Non-tender GENITOURINARY Elimination: Continent INTEGUMENTARY/SKIN/WOUND - (INCLUDING KEYLA) SEE NOTE: VAAES SKIN INPECTION/ASSESSMENT MOBILITY Mobility Status: Minimum assist: Stands with support only (Unsteady or requires verbal cueing) Equipment utilized: Walker Gait: Steady PSYCHOSOCIAL Type of Emotional Support Provided: Hospitalization discussion, Treatment discussion ADULT EDUCATION Comment: discussed ambulation safety /es/ MARCIE LEE RN REGISTERED NURSE Signed: 08/16/2024 09:52 MARICE LEE [facility] Aug 16, 2024 04:01 AM NURSING INPATIENT NOTE: LOCAL TITLE: [facility] PATIENT SAFETY CHECK STL STANDARD TITLE: NURSING INPATIENT NOTE DATE OF NOTE: AUG 16, 2024@04:01 ENTRY DATE: AUG 16, 2024@04:01:51 AUTHOR: JOSSELINE ANNA EXP COSIGNER: URGENCY: STATUS: COMPLETED BEDSIDE SAFETY CHECK STL A visual sweep of the patient's room for any physical or environmental safety concerns was completed and education provided to patient regarding their personal safety concerns. /es/ JOSSELINE ANNA REGISTERED NURSE Signed: 08/16/2024 04:02 JOSSEILNE ANNA [facility] Aug 16, 2024 12:09 AM NURSING NOTE: LOCAL TITLE: [place] SKIN INSPECTION/ASSESSMENT STANDARD TITLE: NURSING NOTE DATE OF NOTE: AUG 16, 2024@00:09 ENTRY DATE: AUG 16, 2024@00:09:56 AUTHOR: JOSSELINE ANNA EXP COSIGNER: URGENCY: STATUS: COMPLETED Assessment Type: SKIN REINSPECTION/REASSESSMENT SKIN INSPECTION: Skin Color: Usual for ethnicity Skin Temperature: Warm Skin Moisture: Normal Skin Turgor: Elastic (normal/immediate) Keyla Skin Assessment: The patient's Keyla Scale Score is 17. The patient is at mild risk for development of pressure ulcer/injury. Sensory perception -- ability to respond meaningfully to pressure-related discomfort Slightly limited. Moisture -- degree to which skin is exposed to moisture Occasionally moist. Activity -- ability to change and control body position Walks occasionally. Mobility -- ability to change and control body position Slightly limited. Nutrition -- usual food intake patterns Adequate. Friction and shear Potential problem. Wound - other than pressure ulcer/injury (includes open surgical wounds/incisions): Location: sternal incision, chest tube abdomen,left forearm No Edema Wound drainage none. SKIN/WOUND DRESSING: Location(s): sternal incision,transverse upper abdomen, left forearm Open to air /es/ JOSSELINE ANNA REGISTERED NURSE Signed: 08/16/2024 00:13 JOSSELINE ANNA [facility] Aug 15, 2024 11:55 PM NURSING INPATIENT NOTE: LOCAL TITLE: [facility] ACUTE INPATIENT NSG SHIFT ASSESSMENT STANDARD TITLE: NURSING INPATIENT NOTE DATE OF NOTE: AUG 15, 2024@23:55 ENTRY DATE: AUG 15, 2024@23:55:24 AUTHOR: JOSSELINE ANNA EXP COSIGNER: URGENCY: STATUS: COMPLETED Version 2.2 Charting in accordance with [facility] [place] STANDARD (IDAES) ACUTE INPATIENT/REHABILITATION NURSING ADMISSION SCREENING, ASSESSMENT, AND STANDARDS OF CARE ASSESSMENT HANDOFF Bedside report and handoff completed Safety check completed PAIN ASSESSMENT Patient's acceptable pain goal: 0 No pain Are you currently experiencing pain? No: MOSQUEDA FALL SCALE & TIPS PROGRAM Mosqueda Fall Scale: The Mosqueda Fall scale was performed and score was 40. This is indicative of moderate risk for falls. History of falling: immediate or within 3 months? No Secondary diagnosis: Yes Ambulatory aid: Crutches/cane(s)/walker Intravenous therapy/Heparin lock: No Gait/Transferring: Weakness Mental Status: Oriented to own ability/knows own limitations Fall Tailoring Interventions for Patient Safety (TIPS) Fall TIPS reviewed with patient: Yes Interventions: Communicate recent fall or risk of harm Assistance out of bed: Call for assistance before getting out of bed Safe patient handling device necessary ENVIRONMENTAL SAFETY MANAGEMENT Implemented safety standards of care: -[place] to unit & environment -Adequate room lighting -Bed in low and locked position -Call light within reach -Personal items within reach -Traffic path in room free of clutter -Non-slip footwear -Upper/half length side rails up for bed mobility -Sensory aids within reach -Encourage patient to utilize sensory support NEUROLOGICAL Neurological Orientation: Oriented x4 Level of Consciousness (AVPU): Alert = Appears aware of and responsive to the environment on their own. Follows commands, opens eyes spontaneously, and tracks objects. Affect/behavior: Cooperative Calm CARDIOVASCULAR Heart Rate/Rhythm (without school bus monitor): Regular Edema: None RESPIRATORY Respirations: Unlabored Pattern: Regular Breath Sounds Auscultated: Anterior only Left Upper Lobe: Clear Right Upper Lobe: Clear Right Middle Lobe: Clear Left Lower Lobe: Clear Right Lower Lobe: Clear GASTROINTESTINAL Last bowel movement: 10/7/24 Elimination: Continent Palpation: Soft, Non-tender GENITOURINARY Elimination: Continent INTEGUMENTARY/SKIN/WOUND - (INCLUDING KEYLA) SEE NOTE: VAAES SKIN INPECTION/ASSESSMENT ACTIVITIES OF DAILY LIVING Hygiene ADLs: Oral Care: Non-ventilator patient: Patient dentures/partial plates cleaned: Independently The [place] was educated that poor oral hygiene increases the risk of hospital acquired pneumonia and dental problems like gingivitis and tooth decay. was educated using their preferred method and verbalized understanding. PSYCHOSOCIAL Type of Emotional Support Provided: 1:1 discussion, Ventilation of feelings encouraged /es/ JOSSELINE ANNA REGISTERED NURSE Signed: 08/16/2024 00:[address] [facility] Aug 15, 2024 07:42 PM FOUNDATION DIRECTOR CARE NOTE: LOCAL TITLE: [facility] ADL NOTE ST STANDARD TITLE: SNF CARE NOTE DATE OF NOTE: AUG 15, 2024@19:42 ENTRY DATE: AUG 15, 2024@19:42:46 AUTHOR: RADHA CIFUENTES COSIGNER: URGENCY: STATUS: COMPLETED Geophysical Support SpecialistJava Development Manager Note Resident Name: CHET WALKER Facility: [facility] Neighborhood: [address] [place] Tour: 08/15/2024 07:00 AM - 08/15/2024 10:00 PM Events: ROUNDING: Entered By: Radha Cifuentes At: 08/15/2024 7:39 PM Start Hour: 7 PM Locations: Bed in Room Room Environment: Call Light Within Reach NUTRITION: Entered By: Radha Cifuentes At: 08/15/2024 7:41 PM Meal: Lunch Method: PO Location: Bedside Amount: 75% Entered By: Radha Cifuentes At: 08/15/2024 7:41 PM Meal: Dinner Method: PO Location: Bedside Amount: 75% MOOD, BEHAVIORAL & COGNITIVE: Entered By: Radha Cifuentes At: 08/15/2024 7:41 PM Behavioral: Pleasant/Cooperative Significant Change: No MOBILITY: Entered By: Radha Cifuentes At: 08/15/2024 7:42 PM Out of Bed: Assisted Bed Rest: No /shen/ RADHA CIFUENTES SEASONAL CLERK IMMUNOLOGY SPECIALIST Signed: 08/15/2024 19:42 DANIEL CIFUENTES [facility] Aug 15, 2024 04:04 PM NURSING NOTE: LOCAL TITLE: [facility] SKIN INSPECTION/ASSESSMENT STANDARD TITLE: NURSING NOTE DATE OF NOTE: AUG 15, 2024@16:04 ENTRY DATE: AUG 15, 2024@16:04:11 AUTHOR: MARTHA JONES COSIGNER: URGENCY: STATUS: COMPLETED Assessment Type: SKIN REINSPECTION/REASSESSMENT SKIN INSPECTION: Skin Color: Usual for ethnicity Skin Temperature: Warm Skin Moisture: Normal Skin Turgor: Elastic (normal/immediate) Keyla Skin Assessment: The patient's Keyla Scale Score is 18. The patient is at mild risk for development of pressure ulcer/injury. Sensory perception -- ability to respond meaningfully to pressure-related discomfort Slightly limited. Moisture -- degree to which skin is exposed to moisture Occasionally moist. Activity -- ability to change and control body position Walks occasionally. Mobility -- ability to change and control body position Slightly limited. Nutrition -- usual food intake patterns Adequate. Friction and shear No apparent problem. INTERVENTIONS: No change in previous interventions as listed below Pressure Ulcer-Education 08/11/2024 Provide Education On Cause/Prevention Pressure Ulcer-Friction/Shear 08/11/2024 Elevate Head of Bed For Meals Pressure Ulcer-Moisture 08/11/2024 Maintain Clean Dry Skin Pressure Ulcer-Nutrition 08/11/2024 Provide/Encourage Oral Care As Needed Pressure Ulcer-Pressure Reducing 08/11/2024 Frequent Position Changes Pressure Ulcer-Remobilize 08/11/2024 Encourage Activity As Tolerated Vaaes Pressure Injury Interventions 08/13/2024 Vaaes Pressure Injury Int Not Needed RISK FACTORS THAT INCREASE RISK FOR DEVELOPING PRESSURE INJURIES The patient/resident does not have any additional risk factors. Wound - other than pressure ulcer/injury (includes open surgical wounds/incisions): Location: sternal incision, transverse upper abdomen, left forearm No Edema Wound drainage none. /shen/ MARTHA JONES RN BSN REGISTERED NURSE Signed: 08/15/2024 18:42 MARTHA JONES [facility] Aug 15, 2024 03:22 PM INFECTIOUS DISEASE RISK ASSESSMENT SCREENING NOTE: LOCAL TITLE: [facility] COVID-19 SCREEN STANDARD TITLE: INFECTIOUS DISEASE RISK ASSESSMENT SCREENING NOT DATE OF NOTE: AUG 15, 2024@15:22 ENTRY DATE: AUG 15, 2024@15:23:07 AUTHOR: MIKA JEFFERSON EXP COSIGNER: URGENCY: STATUS: COMPLETED Coronavirus Disease 2019 (COVID-19) CLC Screen The resident's temperature is: 97.7 F (36.5 C) The resident was asked if in the last 14 days they have had new onset of any COVID-19 symptoms. They report the following: No symptoms Within the past 14 days, the resident reports no exposure to someone with a febrile/respiratory illness or someone with a known or suspected case of COVID-19 (within 6 feet for > 15 minutes). Results: Screen is negative. /shen/ MIKA JEFFERSON RN REGISTERED NURSE Signed: 08/15/2024 15:28 MIKA JEFFERSON [facility] Aug 15, 2024 12:17 PM NURSING INPATIENT NOTE: LOCAL TITLE: VAAES ACUTE INPATIENT NSG SHIFT ASSESSMENT STANDARD TITLE: NURSING INPATIENT NOTE DATE OF NOTE: AUG 15, 2024@12:17 ENTRY DATE: AUG 15, 2024@12:17:25 AUTHOR: MARTHA JONES EXP COSIGNER: URGENCY: STATUS: COMPLETED Version 2.2 Charting in accordance with [place] STANDARD (VAAES) ACUTE INPATIENT/REHABILITATION NURSING ADMISSION SCREENING, ASSESSMENT, AND STANDARDS OF CARE ASSESSMENT HANDOFF Bedside report and handoff completed Safety check completed PAIN ASSESSMENT Patient's acceptable pain goal: 0 No pain Are you currently experiencing pain? No: Pain Score: 0 MOSQUEDA FALL SCALE & TIPS PROGRAM Mosqueda Fall Scale: The Mosqueda Fall scale was performed and score was 40. This is indicative of moderate risk for falls. History of falling: immediate or within 3 months? No Secondary diagnosis: Yes Ambulatory aid: Crutches/cane(s)/walker Intravenous therapy/Heparin lock: No Gait/Transferring: Weakness Mental Status: Oriented to own ability/knows own limitations Fall Tailoring Interventions for Patient Safety (TIPS) Fall TIPS reviewed with patient: Yes Interventions: Assistance out of bed: Call for assistance before getting out of bed ENVIRONMENTAL SAFETY MANAGEMENT Implemented safety standards of care: -[place] to unit & environment -Adequate room lighting -Bed in low and locked position -Call light within reach -Personal items within reach -Traffic path in room free of clutter -Non-slip footwear -Upper/half length side rails up for bed mobility -Sensory aids within reach -Encourage patient to utilize sensory support NEUROLOGICAL Neurological Orientation: Oriented x4 Level of Consciousness (AVPU): Alert = Appears aware of and responsive to the environment on their own. Follows commands, opens eyes spontaneously, and tracks objects. Affect/behavior: Cooperative Calm CARDIOVASCULAR Heart Sounds: Normal (S1S2) Edema: None RESPIRATORY Respirations: Unlabored Pattern: Regular Breath Sounds Auscultated: Anterior and posterior Left Upper Lobe: Clear Right Upper Lobe: Clear Right Middle Lobe: Clear Left Lower Lobe: Clear Right Lower Lobe: Clear GASTROINTESTINAL Passing flatus Elimination: Continent Abdominal Description: Flat Palpation: Soft, Non-tender Bowel Sounds: RUQ: Active LUQ: Active RLQ: Active LLQ: Active GENITOURINARY Elimination: Continent INTEGUMENTARY/SKIN/WOUND - (INCLUDING KEYLA) SEE NOTE: VAAES SKIN INPECTION/ASSESSMENT ACTIVITIES OF DAILY LIVING Hygiene ADLs: Oral Care: Non-ventilator patient: Patient teeth brushed: Independently PSYCHOSOCIAL Type of Emotional Support Provided: 1:1 discussion ADULT EDUCATION Education provided: Topic 1: safety Specific Content: educated on fall prevention Method: Verbal Provided to: Patient Patient understanding of education content: Verbalized understanding /shen/ MARTHA JONES RN BSN REGISTERED NURSE Signed: 08/15/2024 18:40 MARTHA JONES [facility] Aug 15, 2024 11:34 AM ADMINISTRATIVE NOTE: LOCAL TITLE: ADMINISTRATIVE STL STANDARD TITLE: ADMINISTRATIVE NOTE DATE OF NOTE: AUG 15, 2024@11:34 ENTRY DATE: AUG 15, 2024@11:34:24 AUTHOR: EMILIE SOUSA EXP COSIGNER: URGENCY: STATUS: COMPLETED ADMINISTRATIVE STL Has ADDENDA FAX RECEIVED FROM [facility], 36 PAGES. INPATIENT DISCHARGE SUMMARY, PLACED IN THE PCP'S FOLDER. /camryn SOUSA ADVANCED MARRIAGE COUNSELOR Signed: 08/15/2024 11:35 Receipt Acknowledged By: 08/16/2024 16:06 /camryn HALL REGISTERED NURSE 08/16/2024 ADDENDUM STATUS: COMPLETED [facility] CARDIAC SURG D/C summary Patient current inpatient for rehab at Patient has PCP appointment Scheduled currently 10/02/2024 09:30 YASH-GREENBRAE PACT STAR RES 2 can adjust depending on D/C from rehab /camryn HALL REGISTERED NURSE Signed: 08/16/2024 16:05 EMILIE SOUSA [facility] Aug 15, 2024 09:23 AM ADMINISTRATIVE NOTE: LOCAL TITLE: SCHEDULING NOTE ST STANDARD TITLE: ADMINISTRATIVE NOTE DATE OF NOTE: AUG 15, 2024@09:23 ENTRY DATE: AUG 15, 2024@09:23:28 AUTHOR: TATI MCDONNELL EXP COSIGNER: URGENCY: STATUS: COMPLETED Minimum Scheduling attempts to contact the [place] have been made. RTC/Appt/Consult request will be discontinued after 14 days. Clinic: HEMATOLOGY/ONCOLOGY TAMARA: Aug RTC/Appt request dispositioned due to No Show/Cancellation X 2 (per DIR 1230) Clinic: HEMATOLOGY/ONCOLOGY ADDITIONAL RESULTS FROM SCHEDULING ATTEMPTS:Did not make 2nd attempt due to Pt being InPatient at . /shen/ TATI GUTIERREZ Signed: 08/15/2024 09:25 Receipt Acknowledged By: 08/16/2024 10:05 /shen/ AIMEE AGUILA,RN REGISTERED NURSE TATI MCDONNELL [facility] Aug 15, 2024 09:18 AM PHYSICAL MEDICINE REHAB INPATIENT NOTE: LOCAL TITLE: RESTORATIVE CARE [facility] STANDARD TITLE: PHYSICAL MEDICINE REHAB INPATIENT NOTE DATE OF NOTE: AUG 15, 2024@09:18 ENTRY DATE: AUG 15, 2024@09:18:15 AUTHOR: KEKE ANGELO EXP COSIGNER: URGENCY: STATUS: COMPLETED CLC RESTORATIVE NURSING INITIAL ASSESSMENT Jeffery Walker #[id number] HISTORY OF PRESENT ILLNESS: per medical record: 74 y.o. yo male w/ PMHx of HTN, HLD, CAD, moderate MR, 2nd degree av block, asthma, JACQUELINE, pHTN, hepatic steatosis, GERD, hiatal hernia, DM Type II (Hgb A1c7.5), hx of pituitary adenoma, and obesity. 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 Has known right ventricular dysfunction, during EMILE that improved. Received blood transfusion, FFP and platelets as well as IV fluids during procedure. He had bilateral chest tubes, and was on Levophed post procedurally. Nitroglycerin for radial artery spasm. Echo: EF 40-50%. on 08/04 patient received pacemaker for complete heart block. Placed on aspirin, Lipitor, Coreg, Imdur, Plavix, Entresto low-dose twice daily. Blood pressure was low and meds were adjusted. He had decreasing hemoglobin post procedurally, which improved. Lantus was initially decreased to 35 units comparing to home dose of 90 units, but then held due to hypoglycemia. Oral meds were also discontinued, such as Ozempic and metformin. Due to general weakness, referred for further PT and OT at [facility]. Interval history Patient is seen post transfer today, he has his CPAP unit with him. No complaints of pain, cough, shortness of breath, dizziness or lightheadedness, constipation or diarrhea, abdominal pain. Sternal incision and newly implanted pacemaker appear healing and stable without dehiscence or drainage. No inflammation as well. He denies any pain, has history of knee replacement. Does complain of diabetic neuropathy with numbness and painful tingling. He just started to ambulate at outside facility. Patient lost weight with Ozempic, which is now on hold. His appetite varies. Patient lives with his son in two-level house, has few steps to enter. He does use cane and walker at home. Past Medical/Surgical History: -1) Asthma (SNOMED CT 326295837) 2) Gastro-esophageal reflux disease (SNOMED CT 906566922) 3) Peptic Ulcer Disease * (ICD-9-CM 533.90) 4) Hypertension (SNOMED CT 66183632) 5) Neoplasm of pituitary gland (SNOMED CT 514673548) 6) Hyperlipidemia (SNOMED CT 12003199) 7) Erectile dysfunction associated with type 2 diabetes mellitus 8) Osteoarthritis of knee 9) Diabetes mellitus with neuropathy 10) Low back pain 11) Obesity 12) Patellofemoral syndrome of right knee 13) History of left total knee replacement 14) History of arthroplasty of right knee 15) Exposure to potentially hazardous substance 16) Fatty liver 17) Heart failure 18) Thrombocytopenia 19) Coronary artery disease 20) History of coronary artery bypass grafting Per admitting H&P: per medical record ADL's Prior to Admission: Social Situation & Supports: -Patient lives with his son in two-level house, has few steps to enter. He does use cane and walker at home. He has history of smoking, but quit. Self-care: Independent, son assist with IADLS Household: Independent Community: Independent Mobility Prior to Admission: IND with cane for household distances, F22 for outside the home Household ambulator: cane and walker Community ambulator: cane and walker PAIN: Location: Description: Falls within the last three months: Yes____No_x__ Bowel and Bladder: Bladder Incontinent___ Continent_x_ Bowel incontinent____Continent__x__ Resident/family stated goals: Pt reports to walk 's mentation/ communication: verbal Level of assistance definitions: Independent-Resident performs all functions without any assistance. Supervision: Cue the resident verbally. No other assistance provided. Limited: Cue the resident tactilely, but no weight bearing provided Extensive: Weight bearing assistance provided, but the resident able to give some help Total: Staff perform all functions of this service ROM Definitions White: 1- No limitations in ROM 2- Slightly limited ROM 3- Very Limited ROM [ ] AROM Program Assistance required: Yes ___No ____ Shoulders: No limitations in ROM__ Slightly limited ROM ____Very Limited ROM__ Elbows: No limitations in ROM___ Slightly limited ROM __ Very Limited ROM Wrists: :No limitations in ROM__ Slightly limited ROM ____Very Limited ROM Fingers: No limitations in ROM__ Slightly limited ROM ____ Very Limited ROM Hips:No limitations in ROM___ Slightly limited ROM ____ Very Limited ROM Knees: No limitations in ROM___Slightly limited ROM ____ Very Limited ROM____ Ankles: No limitations in ROM___ Slightly limited ROM ____Very Limited ROM Toes:No limitations in ROM___ Slightly limited ROM __bilat__ Very Limited ROM [ ] PROM Program Shoulders: No limitations in ROM___Slightly limited ROM ____ Very Limited ROM__ Elbows: No limitations in ROM__ Slightly limited ROM ____ Very Limited ROM Wrists: No limitations in ROM__ Slightly limited ROM ____ Very Limited ROM Fingers: No limitations in ROM__ Slightly limited ROM ____ Very Limited ROM Hips: No limitations in ROM___ Slightly limited ROM ____Very Limited ROM____ Knees: No limitations in ROM___ Slightly limited ROM ____ Very Limited ROM___ Ankles: No limitations in ROM__x_ Slightly limited ROM ____Very Limited ROM Toes: No limitations in ROM___Slightly limited ROM ___Very Limited ROM Comments: [ ] Bed Mobility Program Level of assistance required to attain mobility: Indep. ___Supervision___Limited____Exte nsive____Total____ Ability to turn from side to side: Indep. ___Supervision___Limited____Exte nsive____Total____ Supine to side of bed sit up: Indep. ___Supervision___Limited____Exte nsive____Total____ Comments: [ ] Transfer Program Mobility Status: total assist with ceiling lift Needs Assistive Device: Yes___No___ Assistive Device Used: Wheelchair___Walker____Cane____O ther Prepares chair/bed (locks, pad, moves covers): Yes____ No____ Transfers (Stands/sits/lifts/turns): Pivots to transfer:___ Yes____No____ Indep.___Supervision___Limited__ __Extensive____Total____ [ ] Ambulation Program Mobility Status: Needs Assistive Device: Assistive Device Used: Assistance Provided: Indep.___Supervision___Limited__ __Extensive____Total____ Gait pattern observation: steady___unsteady___ Comments: Uses Wheelchair: Level of wheel chair assistance: Indep. ___Supervision___Limited____Exte nsive____Total____ [ x] Dining Program What issues is the resident experiencing that Interfere with his/her ability to eat independently? Vision/Hearing status: standard glasses Dental Status: lacking teeth Hand grasp: strong Tremors: none noted Chewing Ability: easy to chew diet Does he/she pocket food: no Assistance level provided to ensure sufficient intake: set up Comments: [ x] NOT enrolled in Restorative Nursing at this time: as all needs are currently being addressed with PT/OT and bedside nursing. Will follow through with staff to see if needs develop toward any restorative care. Please consult restorative should resident have assessed needs that could benefit from restorative nursing program. /shen/ KEKE ANGELO RN REGISTERED NURSE Signed: 08/15/2024 09:18 Receipt Acknowledged By: 08/15/2024 10:31 /shen/ AIMEE PELAYO, RN REGISTERED NURSE KEKE ANGELO [facility] Aug 15, 2024 07:38 AM NURSING IMMUNIZATION NOTE: LOCAL TITLE: [facility] COVID-19 VACCINE ADMINISTRATION STANDARD TITLE: NURSING IMMUNIZATION NOTE DATE OF NOTE: AUG 15, 2024@07:38 ENTRY DATE: AUG 15, 2024@09:39:01 AUTHOR: GABRIEL TO EXP COSIGNER: URGENCY: STATUS: COMPLETED Refused Novavax COVID-19 vaccine Immunization: COVID-19 vaccine Refusal Reason: PATIENT DECISION Patient refuses all immunization(s) in the COVID-19 group Date Documented: 08/15/24 09:39 /shen/ GABRIEL ORDONEZ RN REGISTERED NURSE Signed: 08/15/2024 09:40 GABRIEL TO [facility] Aug 15, 2024 07:37 AM IMMUNIZATION NOTE: LOCAL TITLE: FLU SHOT CLINIC ST STANDARD TITLE: IMMUNIZATION NOTE DATE OF NOTE: AUG 15, 2024@07:37 ENTRY DATE: AUG 15, 2024@09:37:53 AUTHOR: GABRIEL TO EXP COSIGNER: URGENCY: STATUS: COMPLETED Influenza Immunization: Deferral / Refusal The patient declines to receive the recommended dose of seasonal influenza vaccine. Immunization: INFLUENZA, UNSPECIFIED FORMULATION Refusal Reason: PATIENT DECISION Patient refuses all immunization(s) in the FLU group Date Documented: 08/15/24 09:38 /shen/ GABRIEL ORDONEZ RN REGISTERED NURSE Signed: 08/15/2024 09:38 GABRIEL TO [facility] Aug 15, 2024 02:34 AM NURSING INPATIENT NOTE: LOCAL TITLE: [facility] PATIENT SAFETY CHECK STL STANDARD TITLE: NURSING INPATIENT NOTE DATE OF NOTE: AUG 15, 2024@02:34 ENTRY DATE: AUG 15, 2024@02:35:05 AUTHOR: BEHZAD MONREAL EXP COSIGNER: URGENCY: STATUS: COMPLETED BEDSIDE SAFETY CHECK STL Visual inspection of wounds, incisions, and drains. Wounds Inspected: YES A visual sweep of the patient's room for any physical or environmental safety concerns was completed and education provided to patient regarding their personal safety concerns. /shen/ BEHZAD MONREAL RN ADN REGISTERED NURSE Signed: 08/15/2024 02:35 BEHZAD MONREAL [facility] Aug 15, 2024 12:28 AM FOUNDATION DIRECTOR CARE NOTE: LOCAL TITLE: [facility] ADL NOTE STL STANDARD TITLE: FOUNDATION DIRECTOR CARE NOTE DATE OF NOTE: AUG 15, 2024@00:28 ENTRY DATE: AUG 15, 2024@00:28:10 AUTHOR: YVONNE PHILLIP EXP COSIGNER: URGENCY: STATUS: COMPLETED Geophysical Support SpecialistJava Development Manager Note Resident Name: CHET WALKER Facility: [facility] Neighborhood: [address] [place] Tour: 08/14/2024 08:15 AM - 08/15/2024 07:30 AM ADL Items: BED MOBILITY: Self: Independent Support: No setup or physical help from staff. Entered By: YVONNE PHILLIP At: 08/15/2024 12:24 AM TRANSFER: Self: Independent Support: No setup or physical help from staff. Entered By: YVONNE PHILLIP At: 08/15/2024 12:24 AM WALK IN ROOM: Self: Independent Support: No setup or physical help from staff. Entered By: YVONNE PHILLIP At: 08/15/2024 12:24 AM WALK IN CORRIDOR: Self: Activity Did Not Occur Support: ADL activity itself did not occur. Entered By: YVONNE PHILLIP At: 08/15/2024 12:24 AM LOCOMOTION ON UNIT: Self: Activity Did Not Occur Support: ADL activity itself did not occur. Entered By: YVONNE PHILLIP At: 08/15/2024 12:24 AM LOCOMOTION OFF UNIT: Self: Activity Did Not Occur Support: ADL activity itself did not occur. Entered By: YVONNE PHILLIP At: 08/15/2024 12:24 AM DRESSING: Self: Independent Support: No setup or physical help from staff. Entered By: YVONNE PHILLIP At: 08/15/2024 12:25 AM EATING: Self: Independent Support: No setup or physical help from staff. Entered By: YVONNE PHILLIP At: 08/15/2024 12:25 AM TOILETING: Self: Limited Assistance Support: One person physical assistance. Entered By: YVONNE PHILLIP At: 08/15/2024 12:25 AM HYGIENE: Self: Independent Support: No setup or physical help from staff. Entered By: YVONNE PHILLIP At: 08/15/2024 12:25 AM BATHING: Self: Activity Did Not Occur Support: ADL activity itself did not occur. Entered By: YVONNE PHILLIP At: 08/15/2024 12:25 AM Events: ROUNDING: Entered By: YVONNE PHILLIP At: 08/15/2024 12:25 AM Start Hour: 12 AM Locations: Bed in Room Room Environment: Cords Secure, Lights, No Obstructions, Call Light Within Reach, Personal Items Within Reach, Bed Height Check Safety Equipment: Low Position Bed, Non-Skid Footwear, Side Rails - Left, Side Rails - Right Comfort Status: Sleeping Position: Back Side Reposition Hours: 2 Reposition Refused: No NUTRITION: Entered By: YVONNE PHILLIP At: 08/15/2024 12:26 AM Meal: Snack Method: PO Location: Bedside Amount: 100% FLUIDS: Entered By: YVONNE PHILLIP At: 08/15/2024 12:26 AM Fluid Type: Water Amount: 200 ml MOOD, BEHAVIORAL & COGNITIVE: Entered By: YVONNE PHILLIP At: 08/15/2024 12:26 AM Mood Observation: Happy/Content Behavioral: Pleasant/Cooperative Cognitive: Alert & Oriented Significant Change: No MOBILITY: Entered By: YVNONE PHILLIP At: 08/15/2024 12:27 AM Out of Bed: Independent Devices: Manual Wheelchair, Two-Wheeled Walker Bed Rest: No BLADDER: Entered By: YVONNE PHILLIP At: 08/15/2024 12:27 AM No Urinary Output: No # of Times: 4 Scheduled: No Continence: Continent Appliances: Toilet, Urinal Volume: 0 cc/ml Urine Descriptions: Light Yellow BOWEL: Entered By: YVONNE PHILLIP At: 08/15/2024 12:27 AM No Bowel Movement: Yes # of Times: 0 Scheduled: No Independent: No BATHING & ORAL CARE: Entered By: YVONNE PHILLIP At: 08/15/2024 12:27 AM Attire: Zofia/Cinthya Oral Care: Independent Oral Education Provided: Melvina /shen/ YVONNE PHILLIP SEASONAL CLERK CERTIFIED NURSES ELECTRIC POWER MACHINE OPERATOR Signed: 08/15/2024 00:28 YVONNE PHILLIP [facility] Aug 14, 2024 08:00 PM NURSING INPATIENT NOTE: LOCAL TITLE: [facility] ACUTE INPATIENT NSG SHIFT ASSESSMENT STANDARD TITLE: NURSING INPATIENT NOTE DATE OF NOTE: AUG 14, 2024@20:00 ENTRY DATE: AUG 14, 2024@21:35:58 AUTHOR: BEHZAD MONREAL EXP COSIGNER: URGENCY: STATUS: COMPLETED Version 2.2 Charting in accordance with [facility] [place] STANDARD (IDAES) ACUTE INPATIENT/REHABILITATION NURSING ADMISSION SCREENING, ASSESSMENT, AND STANDARDS OF CARE ASSESSMENT HANDOFF Bedside report and handoff completed Safety check completed PAIN ASSESSMENT Patient's acceptable pain goal: 0 No pain Are you currently experiencing pain? No: Pain Score: 0 MOSQUEDA FALL SCALE & TIPS PROGRAM Mosqueda Fall Scale: The Mosqueda Fall scale was performed and score was 40. This is indicative of moderate risk for falls. History of falling: immediate or within 3 months? No Secondary diagnosis: Yes Ambulatory aid: Crutches/cane(s)/walker Intravenous therapy/Heparin lock: No Gait/Transferring: Weakness Mental Status: Oriented to own ability/knows own limitations Fall Tailoring Interventions for Patient Safety (TIPS) Fall TIPS initiated with patient: Yes Interventions: Walking Aids: Walker Assistance out of bed: Call for assistance before getting out of bed Fall TIPS reviewed with patient: Yes Interventions: Communicate recent fall or risk of harm Walking Aids: Walker Assistance out of bed: Call for assistance before getting out of bed ENVIRONMENTAL SAFETY MANAGEMENT Implemented safety standards of care: -[place] to unit & environment -Adequate room lighting -Bed in low and locked position -Call light within reach -Personal items within reach -Traffic path in room free of clutter -Non-slip footwear -Upper/half length side rails up for bed mobility -Sensory aids within reach -Encourage patient to utilize sensory support Additional safety measures: Increased frequency of rounding Mobility support items readily available NEUROLOGICAL Neurological Orientation: Oriented x4 Level of Consciousness (AVPU): Alert = Appears aware of and responsive to the environment on their own. Follows commands, opens eyes spontaneously, and tracks objects. Affect/behavior: Cooperative Calm Merrill Agitation Sedation Scale (RASS): 0 Alert and calm NEUROMUSCULAR/NEUROVASCULAR EXTREMITIES ASSESSMENT Temperature: Upper Extremity Temperature Bilateral: Warm Lower Extremity Temperature Bilateral: Warm CARDIOVASCULAR Heart Sounds: Normal (S1S2) Heart Rate/Rhythm (without school bus monitor): Regular Capillary Refill: All 4 extremities, less than or equal to 3 seconds. Peripheral Pulses: All 4 extremities, 3+ normal. Edema: None RESPIRATORY Respirations: Unlabored Breath Sounds Auscultated: Anterior and posterior Left Upper Lobe: Clear Right Upper Lobe: Clear Right Middle Lobe: Clear Left Lower Lobe: Clear Right Lower Lobe: Clear Supplemental Respiratory: CPAP/BIPAP: Measured FiO2 (%): Mode: CPAP GASTROINTESTINAL Last bowel movement: 10/6/24 Abdominal Description: Flat Palpation: Soft, Non-tender Bowel Sounds: RUQ: Active LUQ: Active RLQ: Active LLQ: Active GENITOURINARY Elimination: Continent INTEGUMENTARY/SKIN/WOUND - (INCLUDING KEYLA) SEE NOTE: VAAES SKIN INPECTION/ASSESSMENT ACTIVITIES OF DAILY LIVING Hygiene ADLs: Oral Care: Non-ventilator patient: The was educated that poor oral hygiene increases the risk of hospital acquired pneumonia and dental problems like gingivitis and tooth decay. [place] was educated using their preferred method and verbalized understanding. MOBILITY Mobility Status: Minimum assist: Stands with support only (Unsteady or requires verbal cueing) Gait: Unsteady ADULT EDUCATION Education provided: Topic 1: safety Specific Content: fall Method: Verbal Provided to: Patient Patient understanding of education content: Needs further teaching /es/ BEHZAD MONREAL RN ADN REGISTERED NURSE Signed: 08/14/2024 21:48 BEHZAD MONREAL [facility] Aug 14, 2024 08:00 PM NURSING NOTE: LOCAL TITLE: [facility] SKIN INSPECTION/ASSESSMENT STANDARD TITLE: NURSING NOTE DATE OF NOTE: AUG 14, 2024@20:00 ENTRY DATE: AUG 14, 2024@22:09:56 AUTHOR: BEHZAD MONREAL EXP COSIGNER: URGENCY: STATUS: COMPLETED Assessment Type: SKIN REINSPECTION/REASSESSMENT SKIN INSPECTION: Skin Color: Usual for ethnicity Skin Temperature: Warm Skin Moisture: Normal Skin Turgor: Elastic (normal/immediate) INTERVENTIONS: No change in previous interventions as listed below Pressure Ulcer-Education 08/11/2024 Provide Education On Cause/Prevention Pressure Ulcer-Friction/Shear 08/11/2024 Elevate Head of Bed For Meals Pressure Ulcer-Moisture 08/11/2024 Maintain Clean Dry Skin Pressure Ulcer-Nutrition 08/11/2024 Provide/Encourage Oral Care As Needed Pressure Ulcer-Pressure Reducing 08/11/2024 Frequent Position Changes Pressure Ulcer-Remobilize 08/11/2024 Encourage Activity As Tolerated Vaaes Pressure Injury Interventions 08/13/2024 Vaaes Pressure Injury Int Not Needed RISK FACTORS THAT INCREASE RISK FOR DEVELOPING PRESSURE INJURIES The patient/resident does not have any additional risk factors. SKIN ALTERATIONS: Wound Documentation from the past year: Skin Assessment 08/14/2024 Skin Integrity - Wound 08/13/2024 Skin Integrity - Wound mid-sternal incision, transverse abdominal incision, left forearm incision, left chest pacer site 08/12/2024 Skin Integrity - Wound mid-sternal incision 08/11/2024 Skin Integrity - Wound m 08/11/2024 Skin Integrity - Wound SKIN INTEGRITY: Intact Wound - other than pressure ulcer/injury (includes open surgical wounds/incisions): Location: mis sternal incision/transverse abdominal incision,left pacemaker incision,left forearm incision No Edema Wound drainage none. SKIN/WOUND DRESSING: Location(s): mid sternal, left pacermaker site,abdominal, and left forearm Clean Dry Intact /es/ BEHZAD MONREAL RN ADN REGISTERED NURSE Signed: 08/14/2024 22:20 BEHZAD MONREAL [facility] Aug 14, 2024 05:23 PM FOUNDATION DIRECTOR CARE NOTE: LOCAL TITLE: [facility] ADL NOTE [facility] STANDARD TITLE: FOUNDATION DIRECTOR CARE NOTE DATE OF NOTE: AUG 14, 2024@17:23 ENTRY DATE: AUG 14, 2024@17:23:18 AUTHOR: DWAINE BENITEZ EXP COSIGNER: URGENCY: STATUS: COMPLETED Geophysical Support SpecialistJava Development Manager Note Resident Name: CHET WALKER Facility: [facility] Neighborhood: [address] [facility] Tour: 08/14/2024 07:00 AM - 08/14/2024 07:30 PM ADL Items: BED MOBILITY: Self: Independent Support: No setup or physical help from staff. Entered By: DWAINE BENITEZ At: 08/14/2024 5:20 PM TRANSFER: Self: Independent Support: No setup or physical help from staff. Entered By: DWAINE BENITEZ At: 08/14/2024 5:20 PM WALK IN ROOM: Self: Independent Support: No setup or physical help from staff. Entered By: DWAINE BENITEZ At: 08/14/2024 5:20 PM WALK IN CORRIDOR: Self: Activity Did Not Occur Support: ADL activity itself did not occur. Entered By: DWAINE BENITEZ At: 08/14/2024 5:20 PM LOCOMOTION ON UNIT: Self: Activity Did Not Occur Support: ADL activity itself did not occur. Entered By: DWAINE BNEITEZ At: 08/14/2024 5:20 PM LOCOMOTION OFF UNIT: Self: Activity Did Not Occur Support: ADL activity itself did not occur. Entered By: DWAINE BENITEZ At: 08/14/2024 5:20 PM DRESSING: Self: Independent Support: No setup or physical help from staff. Entered By: DWAINE BENITEZ At: 08/14/2024 5:20 PM EATING: Self: Independent Support: No setup or physical help from staff. Entered By: DWAINE BENITEZ At: 08/14/2024 5:20 PM TOILETING: Self: Independent Support: No setup or physical help from staff. Entered By: DWAINE BENITEZ At: 08/14/2024 5:20 PM HYGIENE: Self: Independent Support: No setup or physical help from staff. Entered By: DWAINE BENITEZ At: 08/14/2024 5:20 PM BATHING: Self: Activity Did Not Occur Support: ADL activity itself did not occur. Entered By: DWAINE BENITEZ At: 08/14/2024 5:21 PM Events: ROUNDING: Entered By: DWAINE BENITEZ At: 08/14/2024 5:21 PM Start Hour: 5 PM Locations: Bed in Room Room Environment: Cords Secure, Lights, No Obstructions, Call Light Within Reach, Personal Items Within Reach, Bed Height Check Comfort Status: Sleeping, Hydration, Toileting, Awake NUTRITION: Entered By: DWAINE BENITEZ At: 08/14/2024 5:22 PM Meal: Dinner Method: PO Location: Bedside Amount: 100% Entered By: DWAINE BENITEZ At: 08/14/2024 5:21 PM Meal: Lunch Method: PO Location: Bedside Amount: 100% Entered By: DWAINE BENITEZ At: 08/14/2024 5:21 PM Meal: Breakfast Method: PO Location: Bedside Amount: 100% MOOD, BEHAVIORAL & COGNITIVE: Entered By: DWAINE BENITEZ At: 08/14/2024 5:22 PM Mood Observation: Happy/Content Behavioral: Pleasant/Cooperative Cognitive: Alert & Oriented Significant Change: No MOBILITY: Entered By: DWAINE BENITEZ At: 08/14/2024 5:22 PM Out of Bed: Independent Devices: Manual Wheelchair, Four-Wheeled Walker Bed Rest: No BLADDER: Entered By: DWAINE BENITEZ At: 08/14/2024 5:22 PM No Urinary Output: No # of Times: 3 Scheduled: No Continence: Continent Appliances: Toilet, Urinal Volume: 0 cc/ml BOWEL: Entered By: DWAINE BENITEZ At: 08/14/2024 5:22 PM No Bowel Movement: No # of Times: 1 Scheduled: No Independent: No Continence: Continent Appliances: Toilet Size: BM Output - Medium Texture: Formed BATHING & ORAL CARE: Entered By: DWAINE BENITEZ At: 08/14/2024 5:22 PM Attire: Personal Attire Oral Education Provided: Melvina BENITEZ CNA CERTIFIED NURSE ELECTRIC POWER MACHINE OPERATOR Signed: 08/14/2024 17:23 DWAINE BENITEZ [facility] Aug 14, 2024 11:17 AM NUTRITION DIETETICS E & M NOTE: LOCAL TITLE: NUTRITION ASSESSMENT [facility] STANDARD TITLE: NUTRITION DIETETICS E & M NOTE DATE OF NOTE: AUG 14, 2024@11:17 ENTRY DATE: AUG 14, 2024@11:17:18 AUTHOR: FABIOLA GRIDER COSIGNER: URGENCY: STATUS: COMPLETED NUTRITION ASSESSMENT CLIENT HISTORY: 74 year old MALE admitted for s/p cabg x 3 on 07/24/2024 and placed defib. Patient medical health history: GERD, DM, neuropathy, HTN, fatty liver, heart failure \ Son lives with vet and assist in meal preparations Diet Order: EASY TO CHEW, 2 GM NA Medications and Herbal Supplements: MULTIVITAMIN , INSULIN Anthropometric Measurements: Ht: 70 in [177.8 cm] (06/29/2024 12:58) Wt: 211.9 lb [96.12 kg] (08/13/2024 10:48) BMI: 30.5 IBW: 166# LABS: FOLATE 6.8 L ng/mL 08/14/2024 HGA1C 7.0 H % 03/06/2024 ACCU-CKS: 112-188 mg/dL Knowledge/beliefs/attitudes: states does not follow a diet per say but does watch the sweets. states he just watches his portions and tries to eat smaller ones, gave an example of how he does this does not eat a lot fried or fast food SUBJECTIVE GLOBAL ASSESSMENT: WEIGHT HISTORY: (ref range <2% 1 week, 5% 30 days, 7.5% 3 months, 10% 6 months) 1 Weight loss/gain however not significant 16# loss 6 months (7%) APPETITE INTAKE: 0 Appetite/intake are adequate appetite good, eating about 70% of meals per vet, documentation 75-100%. states normally does not eat breakfast but eating it here. lunh usually leftovers or chili. dinner chicken, vegetables, potatoes or spaghetti. Snacks on chips, fruit, popcorn. drinks: diet [employer] dew, [employer] watermelon tea, some water with flavoring. . shares preferences. Meeting or exceeding estimated energy and protein needs. GASTROINTESTINAL SYMPTOMS: 0 No Chewing Issues/-edentulous, tolerating easy to chew 0 No swallowing issues 0 No nausea/vomiting issue 0 No diarrhea issues FUNCTIONAL CAPACITY: 0 Functional capacity does not interfere Nutrition Status METABOLIC STRESS: 2 Pt with significant metabolic stress heart surgery, surgical incisions PHYSICAL NUTRITION ASSESSMENT: 0 No signs of fat, muscle, or fluid abnormalities no edema skin: left forearn surgical site, chest surgial site Subcutaneous fat loss: weight in abdomen, appears nourished SGA: 3 predicted nutrition problem Nutrition Prescription: Estimated energy needs:2263 kcals (30 kcals/kg IBW) Estimated protein needs: 94 gms (1.25 gms/kg) Estimated fluid needs:2263 ml (1.0 ml/kcal) NUTRITION DIAGNOSIS: Increased nutrient needs related to physiological causes increasing nutrient needs (metabolic physiologic etiology) as evidenced by cardiac surgery, surgical incisions. NUTRITION INTERVENTIONS: --Identify Nutrition Intervention goals identify goal description: heal wounds, get stronger --Nutrition Prescription: Carbohydrate consistent, increased protein --Meals and snacks Decreased sodium: 2 gms Texture modified diet: easy to chew Other: food preferences Modify schedule food/fluids:none --NUTRITION EDUCATION CONTENT Content related nutrition education diet order reviewed, reason for low sodium and vet did teach back information in his own words. asked if I was going to tell him to eat the vegetables he does not like and discussed increased fruit/vegetable intake of ones he does, less fried food and fast food, pizza rarely, healthy food. no questions. Barriers to comprehension: none --Discharge and transfer of nutrition care: pending medical outcomes NUTRITION MONITORING AND EVALUATION Measured percent of meals eaten in 24 hours: >70% average. Weight: <211# at next check Follow up date: Aug /shen/ FABIOLA GRIDER MBA, RD CLINICAL DIETITIAN Signed: 08/14/2024 11:40 FABIOLA GRIDER [facility] Aug 14, 2024 11:16 AM ADMINISTRATIVE NOTE: LOCAL TITLE: BENEFICIARY TRAVEL (BT) STANDARD TITLE: ADMINISTRATIVE NOTE DATE OF NOTE: AUG 14, 2024@11:16 ENTRY DATE: AUG 14, 2024@11:16:13 AUTHOR: PILO LR COSIGNER: URGENCY: STATUS: COMPLETED BENEFICIARY TRAVEL SPECIAL MODE TRANSPORTATION: I have informed the that, requests with insufficient evidence of functional need, containing information that appears inconsistent with clinical evidence or appears intentionally exaggerated to obtain eligibility will be referred for further review or returned for additional information or clarification. Point of Contact's E-mail: Allan Lucas [id number] room 13 Phone/Pager/Extension: [phone] MEDICAL JUSTIFICATION is not able to transfer into a private vehicle or medically appropriate common carrier, or requires additional assistance as outlined below. The clinical condition requiring the use of ID Special Mode transportation to be safely transported are as follows: Severe deconditioning or functional limitation precluding private transportation with assistance This request is for an inter-facility transfer BASIC LIFE SUPPORT (Stretcher; Computer Tester On-Board): Stretcher: Patient is bed-bound and unable to safely travel by POV or common carrier, or is unable to maintain static sitting position for the duration of the trip. Describe functional limitations in detail clarifying why patient requires stretcher transport. Patient weak unsteady with transfers. Patient weight: 211.9 lb [96.12 kg] (08/13/2024 10:48) Comments: Date travel is to commence: Aug customer service supervisor time (if needed): 1330 Estimated time frame will require transportation: 6 Months To and from all authorized VA and Non-VA care From: Other Location: Comment: Allan Lucas [address] room 13 To: (Facility Name): [facility] City/State: [facility] Frequency: Round Trip /es/ PILO LR CHIEF METEOROLOGIST REGISTERED NURSE Signed: 08/14/2024 13:39 PILO LR [facility] Aug 14, 2024 10:35 AM NURSING NOTE: LOCAL TITLE: IDAES SKIN INSPECTION/ASSESSMENT STANDARD TITLE: NURSING NOTE DATE OF NOTE: AUG 14, 2024@10:35 ENTRY DATE: AUG 14, 2024@19:58:29 AUTHOR: JARETT ORELLANA COSIGNER: URGENCY: STATUS: COMPLETED Assessment Type: SKIN REINSPECTION/REASSESSMENT SKIN INSPECTION: Skin Color: Usual for ethnicity Skin Temperature: Warm Skin Moisture: Normal Skin Turgor: Elastic (normal/immediate) Keyla Skin Assessment: The patient's Keyla Scale Score is 18. The patient is at mild risk for development of pressure ulcer/injury. Sensory perception -- ability to respond meaningfully to pressure-related discomfort Slightly limited. Moisture -- degree to which skin is exposed to moisture Rarely moist. Activity -- ability to change and control body position Walks occasionally. Mobility -- ability to change and control body position Slightly limited. Nutrition -- usual food intake patterns Adequate. Friction and shear Potential problem. INTERVENTIONS: No change in previous interventions as listed below Pressure Ulcer-Education 08/11/2024 Provide Education On Cause/Prevention Pressure Ulcer-Friction/Shear 08/11/2024 Elevate Head of Bed For Meals Pressure Ulcer-Moisture 08/11/2024 Maintain Clean Dry Skin Pressure Ulcer-Nutrition 08/11/2024 Provide/Encourage Oral Care As Needed Pressure Ulcer-Pressure Reducing 08/11/2024 Frequent Position Changes Pressure Ulcer-Remobilize 08/11/2024 Encourage Activity As Tolerated Vaaes Pressure Injury Interventions 08/13/2024 Vaaes Pressure Injury Int Not Needed RISK FACTORS THAT INCREASE RISK FOR DEVELOPING PRESSURE INJURIES: The patient/resident has the following: Known vascular surgery or vascular disease Device(s): (nasogastric tubes, oxygen tubing, urinary catheters, cell phone etc.) Comment: walker Other: obesity SKIN ALTERATIONS: Wound Documentation from the past year: Skin Assessment 08/13/2024 Skin Integrity - Wound mid-sternal incision, transverse abdominal incision, left forearm incision, left chest pacer site 08/12/2024 Skin Integrity - Wound mid-sternal incision 08/11/2024 Skin Integrity - Wound m 08/11/2024 Skin Integrity - Wound Incision and Flaps: Incision 1: Location: chest Status: Edges well approximated Closure: Glue Stabilization: None Surrounding tissue: Intact Wound drainage none. Dressing type: Transparent Incision 2: Location: L fore arm Status: Edges well approximated Closure: Glue Stabilization: None Surrounding tissue: Intact Wound drainage none. Dressing type: Transparent Incision 3: Location: Left upper chest Status: Edges well approximated Closure: Glue Stabilization: None Surrounding tissue: Intact Wound drainage none. Dressing type: Transparent /es/ JARETT MOTTAN RN REGISTERED NURSE Signed: 08/14/2024 20:06 JARETT ORELLANA [facility] Aug 14, 2024 10:26 AM NURSING INPATIENT NOTE: LOCAL TITLE: [facility] ACUTE INPATIENT NSG SHIFT ASSESSMENT STANDARD TITLE: NURSING INPATIENT NOTE DATE OF NOTE: AUG 14, 2024@10:26 ENTRY DATE: AUG 14, 2024@10:26:09 AUTHOR: JARETT ORELLANA EXP COSIGNER: URGENCY: STATUS: COMPLETED Version 2.2 Charting in accordance with [facility] [place] STANDARD (IDAES) ACUTE INPATIENT/REHABILITATION NURSING ADMISSION SCREENING, ASSESSMENT, AND STANDARDS OF CARE ASSESSMENT HANDOFF Safety check completed PAIN ASSESSMENT Patient's acceptable pain goal: 0 No pain Are you currently experiencing pain? No: Pain Score: 0 MOSQUEDA FALL SCALE & TIPS PROGRAM Mosqueda Fall Scale: The Mosqueda Fall scale was performed and score was 65. This is indicative of high risk for falls. History of falling: immediate or within 3 months? Yes Secondary diagnosis: Yes Ambulatory aid: Crutches/cane(s)/walker Intravenous therapy/Heparin lock: No Gait/Transferring: Weakness Mental Status: Oriented to own ability/knows own limitations ENVIRONMENTAL SAFETY MANAGEMENT Implemented safety standards of care: -[place] to unit & environment -Adequate room lighting -Bed in low and locked position -Call light within reach -Personal items within reach -Traffic path in room free of clutter -Non-slip footwear -Upper/half length side rails up for bed mobility -Sensory aids within reach -Encourage patient to utilize sensory support NEUROLOGICAL Neurological Orientation: Oriented x4 Level of Consciousness (AVPU): Alert = Appears aware of and responsive to the environment on their own. Follows commands, opens eyes spontaneously, and tracks objects. Affect/behavior: Cooperative Calm NEUROMUSCULAR/NEUROVASCULAR EXTREMITIES ASSESSMENT Strength: Inclinometer Tester Bilateral: Strong Upper Extremity Bilateral: Full strength Lower Extremity Bilateral: Full strength Sensation: Upper Extremity Sensation Bilateral: Intact Lower Extremity Sensation Bilateral: Intact Temperature: Upper Extremity Temperature Bilateral: Warm Lower Extremity Temperature Bilateral: Warm CARDIOVASCULAR Heart Sounds: Normal (S1S2) Heart Rate/Rhythm (without school bus monitor): Regular Peripheral Pulses: All 4 extremities, 3+ normal. Edema: None Supplemental Cardiovascular: Pacemaker (new or temporary): RESPIRATORY Respirations: Unlabored Pattern: Regular Breath Sounds Auscultated: Anterior only Left Upper Lobe: Clear Right Upper Lobe: Clear Right Middle Lobe: Clear Left Lower Lobe: Clear Right Lower Lobe: Clear GASTROINTESTINAL Elimination: Continent Abdominal Description: Rounded Palpation: Soft Bowel Sounds: RUQ: Active LUQ: Active RLQ: Active LLQ: Active GENITOURINARY Elimination: Continent Color/Characteristic: Yellow INTEGUMENTARY/SKIN/WOUND - (INCLUDING KEYLA) SEE NOTE: VAAES SKIN INPECTION/ASSESSMENT PSYCHOSOCIAL Type of Emotional Support Provided: Ventilation of feelings encouraged ADULT EDUCATION Education provided: Topic 1: aspirin Specific Content: cardiovascular health Method: Verbal Provided to: Patient Patient understanding of education content: Verbalized understanding /shen/ JARETT YU RN REGISTERED NURSE Signed: 08/14/2024 10:43 JARETT ORELLANA [facility] Aug 14, 2024 09:31 AM ADDENDUM: LOCAL TITLE: Addendum STANDARD TITLE: ADDENDUM DATE OF NOTE: AUG 14, 2024@09:31:46 ENTRY DATE: AUG 14, 2024@09:31:47 AUTHOR: EMILIE SOUSA COSIGNER: URGENCY: STATUS: COMPLETED ADDITIONAL FAX RECEIVED ON 08/11/[address] [facility], 15 PAGES. ENCOUNTER INFORMATION, PLACED IN THE PCP'S FOLDER. /camryn SOUSA ADVANCED MARRIAGE COUNSELOR Signed: 08/14/2024 09:32 Receipt Acknowledged By: 08/14/2024 15:53 /camryn HPILLIPS NURSE --- Original Document --- 08/14/24 ADMINISTRATIVE STL: FAX RECEIVED ON 08/11/[address] [facility], 6 PAGES. DISCHARGE SUMMARY, PLACED IN THE PCP'S FOLDER. /camryn SOUSA ADVANCED MARRIAGE COUNSELOR Signed: 08/14/2024 09:15 Receipt Acknowledged By: 08/14/2024 15:53 /camryn HALL REGISTERED NURSE 08/14/2024 ADDENDUM STATUS: COMPLETED Discharge/ admission records from [facility] Cardiac surgery consult for planed CABG 07/24/24-08/11/24 Patient transfered to for rehab, currently inpatient at /es/ CHARITY HALL REGISTERED NURSE Signed: 08/14/2024 15:53 EMILIE SOUSA [facility] Aug 14, 2024 09:14 AM ADMINISTRATIVE NOTE: LOCAL TITLE: ADMINISTRATIVE STL STANDARD TITLE: ADMINISTRATIVE NOTE DATE OF NOTE: AUG 14, 2024@09:14 ENTRY DATE: AUG 14, 2024@09:14:53 AUTHOR: EMILIE SOUSA EXP COSIGNER: URGENCY: STATUS: COMPLETED ADMINISTRATIVE STL Has ADDENDA FAX RECEIVED ON 08/11/[address] [facility], 6 PAGES. DISCHARGE SUMMARY, PLACED IN THE PCP'S FOLDER. /camryn SOUSA ADVANCED MARRIAGE COUNSELOR Signed: 08/14/2024 09:15 Receipt Acknowledged By: 08/14/2024 15:53 /camryn HALL REGISTERED NURSE 08/14/2024 ADDENDUM STATUS: COMPLETED ADDITIONAL FAX RECEIVED ON 08/11/[address] [facility], 15 PAGES. ENCOUNTER INFORMATION, PLACED IN THE PCP'S FOLDER. /camryn SOUSA ADVANCED MARRIAGE COUNSELOR Signed: 08/14/2024 09:32 Receipt Acknowledged By: 08/14/2024 15:53 /camryn HALL REGISTERED NURSE 08/14/2024 ADDENDUM STATUS: COMPLETED Discharge/ admission records from [facility] Cardiac surgery consult for planed CABG 07/24/24-08/11/24 Patient transfered to for rehab, currently inpatient at /camryn HALL REGISTERED NURSE Signed: 08/14/2024 15:53 EMILIE SOUSA [facility] Aug 14, 2024 03:27 AM SNF CARE NOTE: LOCAL TITLE: [facility] ADL NOTE STL STANDARD TITLE: FOUNDATION DIRECTOR CARE NOTE DATE OF NOTE: AUG 14, 2024@03:27 ENTRY DATE: AUG 14, 2024@03:27:06 AUTHOR: TAHIRA BELTRAN EXP COSIGNER: URGENCY: STATUS: COMPLETED Geophysical Support SpecialistJava Development Manager Note Resident Name: CHET WALKER Facility: [facility] Neighborhood: [address] [facility] Tour: 08/14/2024 03:15 AM - 08/14/2024 07:15 AM ADL Items: BED MOBILITY: Self: Independent Support: No setup or physical help from staff. Entered By: CHALINO BELTRAN At: 08/14/2024 3:21 AM TRANSFER: Self: Independent Support: No setup or physical help from staff. Entered By: CHALINO BELTRAN At: 08/14/2024 3:21 AM WALK IN ROOM: Self: Independent Support: No setup or physical help from staff. Entered By: CHALINO BELTRAN At: 08/14/2024 3:21 AM WALK IN CORRIDOR: Self: Activity Did Not Occur Support: ADL activity itself did not occur. Entered By: CHALINO BELTRAN At: 08/14/2024 3:21 AM LOCOMOTION ON UNIT: Self: Activity Did Not Occur Support: ADL activity itself did not occur. Entered By: CHALINO BELTRAN At: 08/14/2024 3:21 AM LOCOMOTION OFF UNIT: Self: Activity Did Not Occur Support: ADL activity itself did not occur. Entered By: CHALINO BELTRAN At: 08/14/2024 3:21 AM DRESSING: Self: Independent Support: Setup help only. Entered By: CHALINO BELTRAN At: 08/14/2024 3:21 AM EATING: Self: Independent Support: No setup or physical help from staff. Entered By: CHALINO BELTRAN At: 08/14/2024 3:21 AM TOILETING: Self: Independent Support: No setup or physical help from staff. Entered By: CHALINO BELTRAN At: 08/14/2024 3:21 AM HYGIENE: Self: Independent Support: Setup help only. Entered By: CHALINO BELTRAN At: 08/14/2024 3:21 AM BATHING: Self: Activity Did Not Occur Support: ADL activity itself did not occur. Entered By: CHALINO BELTRAN At: 08/14/2024 3:22 AM Events: ROUNDING: Entered By: CHALINO BELTRAN At: 08/14/2024 3:22 AM Start Hour: 3 AM Locations: Bed in Room Room Environment: Cords Secure, Lights, No Obstructions, Call Light Within Reach, Personal Items Within Reach, Bed Height Check Safety Equipment: Non-Skid Footwear Comfort Status: Sleeping NUTRITION: Entered By: CHALINO BELTRAN At: 08/14/2024 3:22 AM Meal: Snack Method: PO Location: Bedside Amount: 100% FLUIDS: Entered By: CHALINO BELTRAN At: 08/14/2024 3:22 AM Fluid Type: Water Amount: 500 ml MOOD, BEHAVIORAL & COGNITIVE: Entered By: CHALINO BELTRAN At: 08/14/2024 3:23 AM Mood Observation: Happy/Content Behavioral: Pleasant/Cooperative Cognitive: Alert & Oriented Significant Change: No MOBILITY: Entered By: CHALINO BELTRAN At: 08/14/2024 3:23 AM Out of Bed: Independent Devices: Manual Wheelchair Bed Rest: No BLADDER: Entered By: CHALINO BELTRAN At: 08/14/2024 3:23 AM No Urinary Output: No # of Times: 2 Scheduled: No Continence: Continent Appliances: Toilet, Urinal Volume: 0 cc/ml Urine Descriptions: Light Yellow BOWEL: Entered By: CHALINO BELTRAN At: 08/14/2024 3:23 AM No Bowel Movement: Yes # of Times: 0 Scheduled: No Independent: No Continence: Continent BATHING & ORAL CARE: Entered By: CHALINO BELTRAN At: 08/14/2024 3:24 AM Attire: Personal Attire Oral Care: Independent Oral Education Provided: Melvina TILLEY IMMUNOLOGY SPECIALIST Signed: 08/14/2024 03:27 TAHIRA BELTRAN [facility] Aug 14, 2024 01:55 AM NURSING INPATIENT NOTE: LOCAL TITLE: [facility] PATIENT SAFETY CHECK STL STANDARD TITLE: NURSING INPATIENT NOTE DATE OF NOTE: AUG 14, 2024@01:55 ENTRY DATE: AUG 14, 2024@01:55:52 AUTHOR: NELLI RODARTE EXP COSIGNER: URGENCY: STATUS: COMPLETED BEDSIDE SAFETY CHECK STL A visual sweep of the patient's room for any physical or environmental safety concerns was completed and education provided to patient regarding their personal safety concerns. /camryn Rodarte RN Registered Nurse Signed: 08/14/2024 01:56 NELLI RODARTE [facility] Aug 13, 2024 10:06 PM NURSING INPATIENT NOTE: LOCAL TITLE: VAAES ACUTE INPATIENT NSG SHIFT ASSESSMENT STANDARD TITLE: NURSING INPATIENT NOTE DATE OF NOTE: AUG 13, 2024@22:06 ENTRY DATE: AUG 13, 2024@22:06:23 AUTHOR: NELLI RODARTE COSIGNER: URGENCY: STATUS: COMPLETED Version 2.2 Charting in accordance with [facility] [place] STANDARD (VAAES) ACUTE INPATIENT/REHABILITATION NURSING ADMISSION SCREENING, ASSESSMENT, AND STANDARDS OF CARE ASSESSMENT HANDOFF Bedside report and handoff completed Safety check completed PAIN ASSESSMENT Patient's acceptable pain goal: Are you currently experiencing pain? No: MOSQUEDA FALL SCALE & TIPS PROGRAM Mosqueda Fall Scale: The Mosqueda Fall scale was performed and score was 40. This is indicative of moderate risk for falls. History of falling: immediate or within 3 months? No Secondary diagnosis: Yes Ambulatory aid: Crutches/cane(s)/walker Intravenous therapy/Heparin lock: No Gait/Transferring: Weakness Mental Status: Oriented to own ability/knows own limitations Fall Tailoring Interventions for Patient Safety (TIPS) Fall TIPS initiated with patient: Yes Interventions: Communicate recent fall or risk of harm Walking Aids: Walker Assistance out of bed: Call for assistance before getting out of bed Fall TIPS reviewed with patient: Yes Interventions: Communicate recent fall or risk of harm Walking Aids: Walker Assistance out of bed: Call for assistance before getting out of bed Safe patient handling device necessary ENVIRONMENTAL SAFETY MANAGEMENT Implemented safety standards of care: -[place] to unit & environment -Adequate room lighting -Bed in low and locked position -Call light within reach -Personal items within reach -Traffic path in room free of clutter -Non-slip footwear -Upper/half length side rails up for bed mobility -Sensory aids within reach -Encourage patient to utilize sensory support NEUROLOGICAL Neurological Orientation: Oriented x4 Level of Consciousness (AVPU): Alert = Appears aware of and responsive to the environment on their own. Follows commands, opens eyes spontaneously, and tracks objects. Affect/behavior: Cooperative Calm NEUROMUSCULAR/NEUROVASCULAR EXTREMITIES ASSESSMENT Strength: Inclinometer Tester Bilateral: Strong Upper Extremity Bilateral: Full strength Lower Extremity Bilateral: Moves against some resistance Temperature: Upper Extremity Temperature Bilateral: Warm Lower Extremity Temperature Bilateral: Warm CARDIOVASCULAR Heart Rate/Rhythm (without school bus monitor): Regular Edema: None RESPIRATORY Respirations: Unlabored Pattern: Regular Breath Sounds Auscultated: Left Upper Lobe: Clear Right Upper Lobe: Clear Right Middle Lobe: Clear Left Lower Lobe: Clear Right Lower Lobe: Clear Comment: o2sat 97% room air Supplemental Respiratory: CPAP/BIPAP: Measured FiO2 (%): Mode: CPAP Humidification GASTROINTESTINAL Last bowel movement: 08/13/24 per oncoming tour report Elimination: Continent Abdominal Description: Rounded Palpation: Soft, Non-tender Bowel Sounds: RUQ: Active LUQ: Active RLQ: Active LLQ: Active GENITOURINARY Elimination: Continent INTEGUMENTARY/SKIN/WOUND - (INCLUDING KEYLA) SEE NOTE: VAAES SKIN INPECTION/ASSESSMENT ACTIVITIES OF DAILY LIVING Hygiene ADLs: Oral Care: Non-ventilator patient: Patient teeth brushed: Independently MOBILITY Mobility Status: Comment: resting in bed; confirms comfort/needs met, call device in reach for addt'l assist as needed PSYCHOSOCIAL Type of Emotional Support Provided: 1:1 discussion, Ventilation of feelings encouraged ADULT EDUCATION Education provided: Topic 1: safety Specific Content: call device for assist as needed Method: Verbal Provided to: Patient Patient understanding of education content: Verbalized understanding /es/ Nelli Rodarte RN Registered Nurse Signed: 08/13/2024 22:14 NELLI RODARTE [facility] Aug 13, 2024 10:01 PM NURSING NOTE: LOCAL TITLE: [facility] SKIN INSPECTION/ASSESSMENT STANDARD TITLE: NURSING NOTE DATE OF NOTE: AUG 13, 2024@22:01 ENTRY DATE: AUG 13, 2024@22:01:28 AUTHOR: NELLI RODARTE EXP COSIGNER: URGENCY: STATUS: COMPLETED Assessment Type: SKIN REINSPECTION/REASSESSMENT SKIN INSPECTION: Skin Color: Usual for ethnicity Skin Temperature: Warm Skin Moisture: Normal Skin Turgor: Elastic (normal/immediate) Keyla Skin Assessment: The patient's Keyla Scale Score is 21. The patient is considered not at risk for development of pressure ulcers/injuries. Sensory perception -- ability to respond meaningfully to pressure-related discomfort No impairment. Moisture -- degree to which skin is exposed to moisture Rarely moist. Activity -- ability to change and control body position Walks occasionally. Mobility -- ability to change and control body position No limitation. Nutrition -- usual food intake patterns Adequate. Friction and shear No apparent problem. INTERVENTIONS: No change in previous interventions as listed below Pressure Ulcer-Education 08/11/2024 Provide Education On Cause/Prevention Pressure Ulcer-Friction/Shear 08/11/2024 Elevate Head of Bed For Meals Pressure Ulcer-Moisture 08/11/2024 Maintain Clean Dry Skin Pressure Ulcer-Nutrition 08/11/2024 Provide/Encourage Oral Care As Needed Pressure Ulcer-Pressure Reducing 08/11/2024 Frequent Position Changes Pressure Ulcer-Remobilize 08/11/2024 Encourage Activity As Tolerated Vaaes Pressure Injury Interventions 08/13/2024 Vaaes Pressure Injury Int Not Needed RISK FACTORS THAT INCREASE RISK FOR DEVELOPING PRESSURE INJURIES: The patient/resident has the following: Device(s): (nasogastric tubes, oxygen tubing, urinary catheters, cell phone etc.) Comment: cpap Other: pacemaker SKIN ALTERATIONS: Pressure Ulcer/Injury Documentation from the past year: No data available SKIN ALTERATIONS: Wound Documentation from the past year: Skin Assessment 08/13/2024 Skin Integrity - Wound mid-sternal incision, transverse abdominal incision, left forearm incision, left chest pacer site 08/12/2024 Skin Integrity - Wound mid-sternal incision 08/11/2024 Skin Integrity - Wound m 08/11/2024 Skin Integrity - Wound SKIN/WOUND DRESSING: Location(s): mid sternal, left chest, left forearm, upper abdomen transverse: incisions intact /es/ Nelli Rodarte RN Registered Nurse Signed: 08/13/2024 22:05 NELLI RODARTE [facility] Aug 13, 2024 06:13 PM SNF CARE NOTE: LOCAL TITLE: [facility] ADL NOTE ST STANDARD TITLE: FOUNDATION DIRECTOR CARE NOTE DATE OF NOTE: AUG 13, 2024@18:13 ENTRY DATE: AUG 13, 2024@18:13:13 AUTHOR: DWAINE BENITEZ EXP COSIGNER: URGENCY: STATUS: COMPLETED Geophysical Support SpecialistJava Development Manager Note Resident Name: CHET CHAN WAKITA Facility: [facility] Neighborhood: [address] [place] [address] Tour: 08/13/2024 07:00 AM - 08/13/2024 07:30 PM ADL Items: BED MOBILITY: Self: Independent Support: No setup or physical help from staff. Entered By: DWAINE BENITEZ At: 08/13/2024 6:06 PM TRANSFER: Self: Independent Support: No setup or physical help from staff. Entered By: DWAINE BENITEZ At: 08/13/2024 6:06 PM WALK IN ROOM: Self: Independent Support: No setup or physical help from staff. Entered By: DWAINE BENITEZ At: 08/13/2024 6:06 PM WALK IN CORRIDOR: Self: Activity Did Not Occur Support: ADL activity itself did not occur. Entered By: DWAINE BENITEZ At: 08/13/2024 6:06 PM LOCOMOTION ON UNIT: Self: Activity Did Not Occur Support: ADL activity itself did not occur. Entered By: DWAINE BENITEZ At: 08/13/2024 6:06 PM LOCOMOTION OFF UNIT: Self: Activity Did Not Occur Support: ADL activity itself did not occur. Entered By: DWAINE BENITEZ At: 08/13/2024 6:06 PM DRESSING: Self: Independent Support: No setup or physical help from staff. Entered By: DWAINE BENITEZ At: 08/13/2024 6:07 PM EATING: Self: Independent Support: No setup or physical help from staff. Entered By: DWAINE BENITEZ At: 08/13/2024 6:07 PM TOILETING: Self: Independent Support: No setup or physical help from staff. Entered By: DWAINE BENITEZ At: 08/13/2024 6:07 PM HYGIENE: Self: Independent Support: No setup or physical help from staff. Entered By: DWAINE BENITEZ At: 08/13/2024 6:07 PM BATHING: Self: Activity Did Not Occur Support: ADL activity itself did not occur. Entered By: DWAINE BENITEZ At: 08/13/2024 6:07 PM Events: ROUNDING: Entered By: DWAINE BENITEZ At: 08/13/2024 6:07 PM Start Hour: 6 PM Locations: Bed in Room Room Environment: Cords Secure, Lights, No Obstructions, Call Light Within Reach, Personal Items Within Reach, Bed Height Check Comfort Status: Sleeping, Hydration, Toileting, Awake NUTRITION: Entered By: DWAINE BENITEZ At: 08/13/2024 6:07 PM Meal: Dinner Method: PO Location: Bedside Amount: 100% Entered By: DWAINE BENITEZ At: 08/13/2024 6:07 PM Meal: Lunch Method: PO Location: Bedside Amount: 100% Entered By: DWAINE BENITEZ At: 08/13/2024 6:07 PM Meal: Breakfast Method: PO Location: Bedside Amount: 100% MOOD, BEHAVIORAL & COGNITIVE: Entered By: DWAINE BENITEZ At: 08/13/2024 6:12 PM Mood Observation: Happy/Content Behavioral: Pleasant/Cooperative Cognitive: Alert & Oriented Significant Change: No MOBILITY: Entered By: DWAINE BENITEZ At: 08/13/2024 6:12 PM Out of Bed: Independent Devices: Four-Wheeled Walker Bed Rest: No BLADDER: Entered By: DWAINE BENITEZ At: 08/13/2024 6:12 PM No Urinary Output: No # of Times: 3 Scheduled: No Continence: Continent Appliances: Toilet, Urinal Volume: 0 cc/ml BOWEL: Entered By: DWAINE BENITEZ At: 08/13/2024 6:12 PM No Bowel Movement: No # of Times: 1 Scheduled: No Independent: No Continence: Continent Appliances: Toilet Size: BM Output - Medium Texture: Formed BATHING & ORAL CARE: Entered By: DWAINE BENITEZ At: 08/13/2024 6:12 PM Attire: Personal Attire Oral Education Provided: Melvina /shen/ DWAINE BENITEZ CNA CERTIFIED NURSE ELECTRIC POWER MACHINE OPERATOR Signed: 08/13/2024 18:13 DWAINE BENITEZ [facility] Aug 13, 2024 05:51 PM NURSING INPATIENT NOTE: LOCAL TITLE: [facility] ACUTE INPATIENT NSG SHIFT ASSESSMENT STANDARD TITLE: NURSING INPATIENT NOTE DATE OF NOTE: AUG 13, 2024@17:51 ENTRY DATE: AUG 13, 2024@17:51:48 AUTHOR: MARCIE LEE COSIGNER: URGENCY: STATUS: COMPLETED Version 2.2 Charting in accordance with [facility] [place] STANDARD (IDAES) ACUTE INPATIENT/REHABILITATION NURSING ADMISSION SCREENING, ASSESSMENT, AND STANDARDS OF CARE REASSESSMENT PAIN ASSESSMENT Patient's acceptable pain goal: Are you currently experiencing pain? No: ENVIRONMENTAL SAFETY MANAGEMENT Implemented safety standards of care: -[place] to unit & environment -Adequate room lighting -Bed in low and locked position -Call light within reach -Personal items within reach -Traffic path in room free of clutter -Non-slip footwear -Upper/half length side rails up for bed mobility -Sensory aids within reach -Encourage patient to utilize sensory support NEUROLOGICAL Neurological Orientation: Oriented x4 Level of Consciousness (AVPU): Alert = Appears aware of and responsive to the environment on their own. Follows commands, opens eyes spontaneously, and tracks objects. Affect/behavior: Cooperative Calm NEUROMUSCULAR/NEUROVASCULAR EXTREMITIES ASSESSMENT Strength: Inclinometer Tester Bilateral: Strong Upper Extremity Bilateral: Full strength Lower Extremity Bilateral: Moves against some resistance CARDIOVASCULAR Heart Rate/Rhythm (without school bus monitor): Regular Edema: None RESPIRATORY Respirations: Unlabored GASTROINTESTINAL Last bowel movement: 08/13/24 Elimination: Continent GENITOURINARY Elimination: Continent INTEGUMENTARY/SKIN/WOUND - (INCLUDING KEYLA) SEE NOTE: IDAES SKIN INPECTION/ASSESSMENT /es/ MARCIE LEE RN REGISTERED NURSE Signed: 08/13/2024 17:53 MARCIE LEE [facility] Aug 13, 2024 12:27 PM NURSING NOTE: LOCAL TITLE: [facility] SKIN INSPECTION/ASSESSMENT STANDARD TITLE: NURSING NOTE DATE OF NOTE: AUG 13, 2024@12:27 ENTRY DATE: AUG 13, 2024@12:27:04 AUTHOR: MARTHA JONES COSIGNER: URGENCY: STATUS: COMPLETED Assessment Type: SKIN REINSPECTION/REASSESSMENT SKIN INSPECTION: Skin Color: Usual for ethnicity Skin Temperature: Warm Skin Moisture: Normal Skin Turgor: Elastic (normal/immediate) Keyla Skin Assessment: The patient's Keyla Scale Score is 19. The patient is considered not at risk for development of pressure ulcers/injuries. Sensory perception -- ability to respond meaningfully to pressure-related discomfort Slightly limited. Moisture -- degree to which skin is exposed to moisture Rarely moist. Activity -- ability to change and control body position Walks occasionally. Mobility -- ability to change and control body position Slightly limited. Nutrition -- usual food intake patterns Adequate. Friction and shear No apparent problem. INTERVENTIONS: The pressure injury interventions were not needed - patient/resident is not at risk. RISK FACTORS THAT INCREASE RISK FOR DEVELOPING PRESSURE INJURIES The patient/resident does not have any additional risk factors. Wound - other than pressure ulcer/injury (includes open surgical wounds/incisions): Location: mid-sternal incision, transverse abdominal incision, left forearm incision, left chest pacer site No Edema Wound drainage none. /es/ MARTHA JONES CHIEF METEOROLOGIST REGISTERED NURSE Signed: 08/13/2024 15:22 MARTHA OJNES [facility] Aug 13, 2024 10:05 AM NURSING INPATIENT NOTE: LOCAL TITLE: [facility] ACUTE INPATIENT NSG SHIFT ASSESSMENT STANDARD TITLE: NURSING INPATIENT NOTE DATE OF NOTE: AUG 13, 2024@10:05 ENTRY DATE: AUG 13, 2024@12:24:11 AUTHOR: MARTHA JONES EXP COSIGNER: URGENCY: STATUS: COMPLETED Version 2.2 Charting in accordance with [place] [employer] [place] STANDARD (IDAES) ACUTE INPATIENT/REHABILITATION NURSING ADMISSION SCREENING, ASSESSMENT, AND STANDARDS OF CARE ASSESSMENT HANDOFF Bedside report and handoff completed Safety check completed PAIN ASSESSMENT Patient's acceptable pain goal: 0 No pain Are you currently experiencing pain? No: Pain Score: 0 MOSQUEDA FALL SCALE & TIPS PROGRAM [place] Fall Scale: The Mos[place] Fall scale was performed and score was 25. This is indicative of moderate risk for falls. History of falling: immediate or within 3 months? No Secondary diagnosis: Yes Ambulatory aid: None/bedrest/nurse assist Intravenous therapy/Heparin lock: No Gait/Transferring: Weakness Mental Status: Oriented to own ability/knows own limitations Fall Tailoring Interventions for Patient Safety (TIPS) Fall TIPS reviewed with patient: Yes Interventions: Assistance out of bed: Call for assistance before getting out of bed ENVIRONMENTAL SAFETY MANAGEMENT Implemented safety standards of care: -[place] to unit & environment -Adequate room lighting -Bed in low and locked position -Call light within reach -Personal items within reach -Traffic path in room free of clutter -Non-slip footwear -Upper/half length side rails up for bed mobility -Sensory aids within reach -Encourage patient to utilize sensory support NEUROLOGICAL Neurological Orientation: Oriented x4 Level of Consciousness (AVPU): Alert = Appears aware of and responsive to the environment on their own. Follows commands, opens eyes spontaneously, and tracks objects. Affect/behavior: Cooperative Calm CARDIOVASCULAR Heart Sounds: Normal (S1S2) Edema: None RESPIRATORY Respirations: Unlabored Pattern: Regular Breath Sounds Auscultated: Anterior and posterior Left Upper Lobe: Clear Right Upper Lobe: Clear Right Middle Lobe: Clear Left Lower Lobe: Clear Right Lower Lobe: Clear GASTROINTESTINAL No bowel movement reported by patient Elimination: Continent Abdominal Description: Flat Palpation: Soft, Non-tender Bowel Sounds: RUQ: Active LUQ: Active RLQ: Active LLQ: Active GENITOURINARY Elimination: Continent INTEGUMENTARY/SKIN/WOUND - (INCLUDING KEYLA) SEE NOTE: VAAES SKIN INPECTION/ASSESSMENT ACTIVITIES OF DAILY LIVING Hygiene ADLs: Oral Care: Non-ventilator patient: Patient teeth brushed: Independently PSYCHOSOCIAL Type of Emotional Support Provided: 1:1 discussion ADULT EDUCATION Education provided: Topic 1: safety Specific Content: educated on fall prevention Method: Verbal Provided to: Patient Patient understanding of education content: Verbalized understanding /es/ MARTHA JONES RN BSN REGISTERED NURSE Signed: 08/13/2024 15:22 MARTHA JONES [facility] Aug 13, 2024 06:22 AM NURSING INPATIENT NOTE: LOCAL TITLE: [facility] NURSING FREQUENT DOCUMENTATION STANDARD TITLE: NURSING INPATIENT NOTE DATE OF NOTE: AUG 13, 2024@06:22 ENTRY DATE: AUG 13, 2024@06:22:15 AUTHOR: TAHIRA BELTRAN EXP COSIGNER: URGENCY: STATUS: COMPLETED RESIDENT IS RESTING ALL SAFTEY MEASURES WHERE MET vitals provided ice water /es/ CHALINO TILLEY IMMUNOLOGY SPECIALIST Signed: 08/13/2024 06:23 TAHIRA BELTRAN [facility] Aug 13, 2024 02:22 AM NURSING INPATIENT NOTE: LOCAL TITLE: [facility] PATIENT SAFETY CHECK STL STANDARD TITLE: NURSING INPATIENT NOTE DATE OF NOTE: AUG 13, 2024@02:22 ENTRY DATE: AUG 13, 2024@02:22:39 AUTHOR: NELLI RODARTE EXP COSIGNER: URGENCY: STATUS: COMPLETED BEDSIDE SAFETY CHECK STL A visual sweep of the patient's room for any physical or environmental safety concerns was completed and education provided to patient regarding their personal safety concerns. Comment: sleeping /shen/ Nelli Rodarte RN Registered Nurse Signed: 08/13/2024 02:23 NELLI RODARTE [facility] Aug 12, 2024 10:28 PM NURSING INPATIENT NOTE: LOCAL TITLE: [facility] ACUTE INPATIENT NSG SHIFT ASSESSMENT STANDARD TITLE: NURSING INPATIENT NOTE DATE OF NOTE: AUG 12, 2024@22:28 ENTRY DATE: AUG 12, 2024@22:28:56 AUTHOR: LEYDI PARKER EXP COSIGNER: URGENCY: STATUS: COMPLETED Version 2.2 Charting in accordance with [place]OVED [place] STANDARD (IDAES) ACUTE INPATIENT/REHABILITATION NURSING ADMISSION SCREENING, ASSESSMENT, AND STANDARDS OF CARE ASSESSMENT HANDOFF Bedside report and handoff completed Safety check completed PAIN ASSESSMENT Patient's acceptable pain goal: Are you currently experiencing pain? No: Pain Score: 0 MOSQUEDA FALL SCALE & TIPS PROGRAM Mosqueda Fall Scale: The [place] Fall scale was performed and score was 40. This is indicative of moderate risk for falls. History of falling: immediate or within 3 months? No Secondary diagnosis: Yes Ambulatory aid: Crutches/cane(s)/walker Intravenous therapy/Heparin lock: No Gait/Transferring: Weakness Mental Status: Oriented to own ability/knows own limitations Fall Tailoring Interventions for Patient Safety (TIPS) ENVIRONMENTAL SAFETY MANAGEMENT Implemented safety standards of care: -[place] to unit & environment -Adequate room lighting -Bed in low and locked position -Call light within reach -Personal items within reach -Traffic path in room free of clutter -Non-slip footwear -Upper/half length side rails up for bed mobility -Sensory aids within reach -Encourage patient to utilize sensory support Additional safety measures: Close to nurses station Increased frequency of rounding NEUROLOGICAL Neurological Orientation: Oriented x4 Level of Consciousness (AVPU): Alert = Appears aware of and responsive to the environment on their own. Follows commands, opens eyes spontaneously, and tracks objects. Affect/behavior: Cooperative Calm NEUROMUSCULAR/NEUROVASCULAR EXTREMITIES ASSESSMENT Strength: Inclinometer Tester Bilateral: Upper Extremity Bilateral: Full strength Lower Extremity Bilateral: Moves against some resistance Temperature: Upper Extremity Temperature Bilateral: Warm Lower Extremity Temperature Bilateral: Warm CARDIOVASCULAR Heart Sounds: Normal (S1S2) Heart Rate/Rhythm (without school bus monitor): Regular Capillary Refill: All 4 extremities, less than or equal to 3 seconds. Peripheral Pulses: All 4 extremities, 3+ normal. Edema: None RESPIRATORY Respirations: Unlabored Pattern: Regular Breath Sounds Auscultated: Anterior and posterior Left Upper Lobe: Clear Right Upper Lobe: Clear Right Middle Lobe: Clear Left Lower Lobe: Clear Right Lower Lobe: Clear GASTROINTESTINAL Last bowel movement: 08/12/2024 Elimination: Continent Abdominal Description: Rounded Palpation: Soft, Non-tender Bowel Sounds: RUQ: Active LUQ: Active RLQ: Active LLQ: Active GENITOURINARY Elimination: Continent INTEGUMENTARY/SKIN/WOUND - (INCLUDING KEYLA) SEE NOTE: VAAES SKIN INPECTION/ASSESSMENT /shen/ LEYDI PARKER REGISTERED NURSE Signed: 08/12/2024 22:33 LEYDI PARKER [facility] Aug 12, 2024 10:25 PM NURSING NOTE: LOCAL TITLE: [facility] SKIN INSPECTION/ASSESSMENT STANDARD TITLE: NURSING NOTE DATE OF NOTE: AUG 12, 2024@22:25 ENTRY DATE: AUG 12, 2024@22:26:08 AUTHOR: LEYDI PARKER EXP COSIGNER: URGENCY: STATUS: COMPLETED Assessment Type: SKIN REINSPECTION/REASSESSMENT SKIN INSPECTION: Skin Color: Usual for ethnicity Skin Temperature: Warm Skin Moisture: Normal Skin Turgor: Elastic (normal/immediate) INTERVENTIONS: The pressure injury interventions were not needed - patient/resident is not at risk. SKIN ALTERATIONS: Wound Documentation from the past year: Skin Assessment 08/12/2024 Skin Integrity - Wound mid-sternal incision 08/11/2024 Skin Integrity - Wound m 08/11/2024 Skin Integrity - Wound RISK FACTORS THAT INCREASE RISK FOR DEVELOPING PRESSURE INJURIES The patient/resident does not have any additional risk factors. Wound - other than pressure ulcer/injury (includes open surgical wounds/incisions): Location: mid-sternal incision, upper abdomen transverse, left forearm, left chest - secured with glue No Edema Wound drainage none. /es/ LEYDI PARKER REGISTERED NURSE Signed: 08/12/2024 22:28 LEYDI PARKER [facility] Aug 12, 2024 06:21 PM FOUNDATION DIRECTOR CARE NOTE: LOCAL TITLE: [facility] ADL NOTE STL STANDARD TITLE: FOUNDATION DIRECTOR CARE NOTE DATE OF NOTE: AUG 12, 2024@18:21 ENTRY DATE: AUG 12, 2024@18:21:46 AUTHOR: DWAINE BENITEZ EXP COSIGNER: URGENCY: STATUS: COMPLETED Geophysical Support SpecialistJava Development Manager Note Resident Name: CHET WALKER Facility: [facility] Neighborhood: [address] [place] Tour: 08/12/2024 07:00 AM - 08/12/2024 07:30 PM ADL Items: BED MOBILITY: Self: Independent Support: No setup or physical help from staff. Entered By: DWAINE BENITEZ At: 08/12/2024 6:15 PM TRANSFER: Self: Independent Support: No setup or physical help from staff. Entered By: DWAINE BENITEZ At: 08/12/2024 6:16 PM WALK IN ROOM: Self: Independent Support: No setup or physical help from staff. Entered By: DWAINE BENITEZ At: 08/12/2024 6:16 PM WALK IN CORRIDOR: Self: Activity Did Not Occur Support: ADL activity itself did not occur. Entered By: DWAINE BENITEZ At: 08/12/2024 6:16 PM LOCOMOTION ON UNIT: Self: Activity Did Not Occur Support: ADL activity itself did not occur. Entered By: DWAINE BENITEZ At: 08/12/2024 6:16 PM LOCOMOTION OFF UNIT: Self: Activity Did Not Occur Support: ADL activity itself did not occur. Entered By: DWAINE BENITEZ At: 08/12/2024 6:16 PM DRESSING: Self: Independent Support: No setup or physical help from staff. Entered By: DWAINE BENITEZ At: 08/12/2024 6:17 PM EATING: Self: Independent Support: No setup or physical help from staff. Entered By: DWAINE BENITEZ At: 08/12/2024 6:17 PM TOILETING: Self: Independent Support: No setup or physical help from staff. Entered By: DWAINE BENITEZ At: 08/12/2024 6:17 PM HYGIENE: Self: Independent Support: No setup or physical help from staff. Entered By: DWAINE BENITEZ At: 08/12/2024 6:17 PM BATHING: Self: Activity Did Not Occur Support: ADL activity itself did not occur. Entered By: DWAINE BENITEZ At: 08/12/2024 6:17 PM Events: ROUNDING: Entered By: DWAINE BENITEZ At: 08/12/2024 6:18 PM Start Hour: 6 PM Locations: Bed in Room Room Environment: Cords Secure, Lights, No Obstructions, Call Light Within Reach, Personal Items Within Reach, Bed Height Check Comfort Status: Sleeping, Hydration, Toileting, Awake NUTRITION: Entered By: DWAINE BENITEZ At: 08/12/2024 6:19 PM Meal: Dinner Method: PO Location: Bedside Amount: 100% Entered By: DWAINE BENITEZ At: 08/12/2024 6:19 PM Meal: Lunch Method: PO Location: Bedside Amount: 100% Entered By: DWAINE BENITEZ At: 08/12/2024 6:19 PM Meal: Breakfast Method: PO Location: Bedside Amount: 100% MOOD, BEHAVIORAL & COGNITIVE: Entered By: DWAINE BENITEZ At: 08/12/2024 6:20 PM Mood Observation: Happy/Content Behavioral: Pleasant/Cooperative Cognitive: Alert & Oriented Significant Change: No MOBILITY: Entered By: DWAINE BENITEZ At: 08/12/2024 6:20 PM Out of Bed: Independent Devices: Standard Walker Bed Rest: No BLADDER: Entered By: DWAINE BENITEZ At: 08/12/2024 6:21 PM No Urinary Output: No # of Times: 3 Scheduled: No Continence: Continent Appliances: Urinal Volume: 0 cc/ml BOWEL: Entered By: DWAINE BENITEZ At: 08/12/2024 6:21 PM No Bowel Movement: Yes # of Times: 0 Scheduled: No Independent: No BATHING & ORAL CARE: Entered By: DWAINE BENITEZ At: 08/12/2024 6:21 PM Attire: Personal Attire Oral Education Provided: Melvina BENITEZ CNA CERTIFIED NURSE ELECTRIC POWER MACHINE OPERATOR Signed: 08/12/2024 18:21 DWAINE BENITEZ [facility] Aug 12, 2024 02:28 PM NURSING NOTE: LOCAL TITLE: [facility] SKIN INSPECTION/ASSESSMENT STANDARD TITLE: NURSING NOTE DATE OF NOTE: AUG 12, 2024@14:28 ENTRY DATE: AUG 12, 2024@14:28:07 AUTHOR: MARCIE LEE COSIGNER: URGENCY: STATUS: COMPLETED Assessment Type: SKIN REINSPECTION/REASSESSMENT SKIN INSPECTION: Skin Color: Usual for ethnicity Skin Temperature: Warm Skin Moisture: Normal Skin Turgor: Elastic (normal/immediate) Keyla Skin Assessment: The patient's Keyla Scale Score is 19. The patient is considered not at risk for development of pressure ulcers/injuries. Sensory perception -- ability to respond meaningfully to pressure-related discomfort Slightly limited. Moisture -- degree to which skin is exposed to moisture Rarely moist. Activity -- ability to change and control body position Walks occasionally. Mobility -- ability to change and control body position Slightly limited. Nutrition -- usual food intake patterns Adequate. Friction and shear No apparent problem. INTERVENTIONS: No change in previous interventions as listed below Pressure Ulcer-Education 08/11/2024 Provide Education On Cause/Prevention Pressure Ulcer-Friction/Shear 08/11/2024 Elevate Head of Bed For Meals Pressure Ulcer-Moisture 08/11/2024 Maintain Clean Dry Skin Pressure Ulcer-Nutrition 08/11/2024 Provide/Encourage Oral Care As Needed Pressure Ulcer-Pressure Reducing 08/11/2024 Frequent Position Changes Pressure Ulcer-Remobilize 08/11/2024 Encourage Activity As Tolerated Vaaes Pressure Injury Interventions 08/11/2024 Vaaes Pressure Injury Int Not Needed RISK FACTORS THAT INCREASE RISK FOR DEVELOPING PRESSURE INJURIES The patient/resident does not have any additional risk factors. Wound - other than pressure ulcer/injury (includes open surgical wounds/incisions): Location: mid-sternal incision-glued transverse upper abdomen incision-glued left forearm incision-glued left chest pacer site-glued No Edema Wound drainage none. /es/ MARCIE LEE RN REGISTERED NURSE Signed: 08/12/2024 15:04 MARCIE LEE [facility] Aug 12, 2024 02:20 PM NURSING INPATIENT NOTE: LOCAL TITLE: IDAES ACUTE INPATIENT NSG SHIFT ASSESSMENT STANDARD TITLE: NURSING INPATIENT NOTE DATE OF NOTE: AUG 12, 2024@14:20 ENTRY DATE: AUG 12, 2024@14:20:25 AUTHOR: MARCIE LEE EXP COSIGNER: URGENCY: STATUS: COMPLETED Version 2.2 Charting in accordance with [facility] [place] STANDARD (IDAES) ACUTE INPATIENT/REHABILITATION NURSING ADMISSION SCREENING, ASSESSMENT, AND STANDARDS OF CARE ASSESSMENT PAIN ASSESSMENT Patient's acceptable pain goal: Are you currently experiencing pain? No: MOSQUEDA FALL SCALE & TIPS PROGRAM Mosqueda Fall Scale: The Mosqueda Fall scale was performed and score was 40. This is indicative of moderate risk for falls. History of falling: immediate or within 3 months? No Secondary diagnosis: Yes Ambulatory aid: Crutches/cane(s)/walker Intravenous therapy/Heparin lock: No Gait/Transferring: Weakness Mental Status: Oriented to own ability/knows own limitations Fall Tailoring Interventions for Patient Safety (TIPS) Fall TIPS reviewed with patient: Yes Interventions: Walking Aids: Walker Assistance out of bed: Call for assistance before getting out of bed ENVIRONMENTAL SAFETY MANAGEMENT Implemented safety standards of care: -[place] to unit & environment -Adequate room lighting -Bed in low and locked position -Call light within reach -Personal items within reach -Traffic path in room free of clutter -Non-slip footwear -Upper/half length side rails up for bed mobility -Sensory aids within reach -Encourage patient to utilize sensory support NEUROLOGICAL Neurological Orientation: Oriented x4 Level of Consciousness (AVPU): Alert = Appears aware of and responsive to the environment on their own. Follows commands, opens eyes spontaneously, and tracks objects. 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 Peripheral Pulses: All 4 extremities, 3+ normal. Edema: None RESPIRATORY Respirations: Unlabored Pattern: Regular Breath Sounds Auscultated: Left Upper Lobe: Clear Right Upper Lobe: Clear Right Middle Lobe: Clear Left Lower Lobe: Clear Right Lower Lobe: Clear GASTROINTESTINAL Last bowel movement: 10/05/24 Elimination: Continent Palpation: Soft, Non-tender Bowel Sounds: RUQ: Active LUQ: Active RLQ: Active LLQ: Active GENITOURINARY Elimination: Continent Color/Characteristic: Clear Yellow INTEGUMENTARY/SKIN/WOUND - (INCLUDING KEYLA) SEE NOTE: VAAES SKIN INPECTION/ASSESSMENT MOBILITY Mobility Status: Minimum assist: Stands with support only (Unsteady or requires verbal cueing) Unable to march and step independently Equipment utilized: Walker Gait: Steady PSYCHOSOCIAL Type of Emotional Support Provided: Hospitalization discussion ADULT EDUCATION Comment: discussed ambulation safety /es/ MARCIE LEE RN REGISTERED NURSE Signed: 08/12/2024 14:26 MARCIE LEETeodora [facility] Aug 12, 2024 10:30 AM NURSING INPATIENT NOTE: LOCAL TITLE: [facility] NURSING FREQUENT DOCUMENTATION STANDARD TITLE: NURSING INPATIENT NOTE DATE OF NOTE: AUG 12, 2024@10:30 ENTRY DATE: AUG 12, 2024@10:30:36 AUTHOR: MARCIE LEE EXP COSIGNER: URGENCY: STATUS: COMPLETED Version 2.4 Charting in accordance with [facility] [place] STANDARD (IDAES) ACUTE INPATIENT/REHABILITATION NURSING ADMISSION SCREENING, ASSESSMENT, AND STANDARDS OF CARE NATIONAL EARLY WARNING SCORE (NEWS) The following vital measurements were used to complete the NEWS. Measurement DT TEMP PULSE RESP BP POx F(C) (L/MIN)(%) 08/12/2024 09:59 97.7(36.5) 68 18 113/70 97 The NEWS total is 0. 1. Temperature (C/F): Score = 0 36.1 - 38.0 C (96.9 - 100.4 F) 2. Pulse: Score = 0 51-90 3. Respirations: Score = 0 12-20 4. Blood Pressure (Only Systolic BP, mmHg): Score = 0 111-219 5. Pulse Oximetry: Score = 0 96% or greater 6. Supplemental oxygen in use: Score = 0 No 7. AVPU: Score = 0 Alert /es/ MARCIE LEE RN REGISTERED NURSE Signed: 08/12/2024 10:31 MARCIE LEE [facility] Aug 12, 2024 02:00 AM NURSING INPATIENT NOTE: LOCAL TITLE: [facility] PATIENT SAFETY CHECK STL STANDARD TITLE: NURSING INPATIENT NOTE DATE OF NOTE: AUG 12, 2024@02:00 ENTRY DATE: AUG 12, 2024@02:31:41 AUTHOR: CASSY NICHOLS EXP COSIGNER: URGENCY: STATUS: COMPLETED BEDSIDE SAFETY CHECK STL Visual inspection of wounds, incisions, and drains. Incision(s) inspected:YES A visual sweep of the patient's room for any physical or environmental safety concerns was completed and education provided to patient regarding their personal safety concerns. Comment:[place] sleeping quietly. Call light and personal belongings within reach. /shen/ CASSY YU,RN REGISTERED NURSE Signed: 08/12/2024 02:32 CASSY NICHOLS [facility] Aug 11, 2024 08:15 PM NURSING INPATIENT NOTE: LOCAL TITLE: [facility] ACUTE INPATIENT NSG SHIFT ASSESSMENT STANDARD TITLE: NURSING INPATIENT NOTE DATE OF NOTE: AUG 11, 2024@20:15 ENTRY DATE: AUG 11, 2024@23:37:04 AUTHOR: CASSY NICHOLS EXP COSIGNER: URGENCY: STATUS: COMPLETED Version 2.2 Charting in accordance with [facility] [place] STANDARD (IDAES) ACUTE INPATIENT/REHABILITATION NURSING ADMISSION SCREENING, ASSESSMENT, AND STANDARDS OF CARE ASSESSMENT HANDOFF Bedside report and handoff completed Safety check completed PAIN ASSESSMENT Patient's acceptable pain goal: 0 No pain Are you currently experiencing pain? No: Pain Score: 0 MOSQUEDA FALL SCALE & TIPS PROGRAM Mosqueda Fall Scale: The Mosqueda Fall scale was performed and score was 15. This is indicative of low risk of falls. History of falling: immediate or within 3 months? No Secondary diagnosis: Yes Ambulatory aid: None/bedrest/nurse assist Intravenous therapy/Heparin lock: No Gait/Transferring: Normal/bed rest/immobile Mental Status: Oriented to own ability/knows own limitations Fall Tailoring Interventions for Patient Safety (TIPS) ENVIRONMENTAL SAFETY MANAGEMENT Implemented safety standards of care: -[place] to unit & environment -Adequate room lighting -Bed in low and locked position -Call light within reach -Personal items within reach -Traffic path in room free of clutter -Non-slip footwear -Upper/half length side rails up for bed mobility -Sensory aids within reach -Encourage patient to utilize sensory support Isolation Type: Other: Specify: Current COVID-19 precautions NEUROLOGICAL Neurological Orientation: Oriented x4 Level of Consciousness (AVPU): Alert = Appears aware of and responsive to the environment on their own. Follows commands, opens eyes spontaneously, and tracks objects. Affect/behavior: Cooperative Calm NEUROMUSCULAR/NEUROVASCULAR EXTREMITIES ASSESSMENT Temperature: Upper Extremity Temperature Bilateral: Warm Lower Extremity Temperature Bilateral: Warm CARDIOVASCULAR Heart Sounds: Normal (S1S2) Heart Rate/Rhythm (without school bus monitor): Regular Capillary Refill: All 4 extremities, less than or equal to 3 seconds. Peripheral Pulses: R Radial: 3+ Normal L Radial: 3+ Normal R Dorsalis Pedis: 2+ Weak L Dorsalis Pedis: 2+ Weak Edema: None RESPIRATORY Respirations: Unlabored Pattern: Regular Breath Sounds Auscultated: Anterior only Left Upper Lobe: Clear Right Upper Lobe: Clear Right Middle Lobe: Clear Left Lower Lobe: Clear Right Lower Lobe: Clear GASTROINTESTINAL Last bowel movement: 08/11/24 Bowel movement reported by patient-unwitnessed Elimination: Continent Abdominal Description: Rounded Palpation: Soft, Non-tender Bowel Sounds: RUQ: Active LUQ: Active RLQ: Active LLQ: Active GENITOURINARY Elimination: Continent INTEGUMENTARY/SKIN/WOUND - (INCLUDING KEYLA) SEE NOTE: VAAES SKIN INPECTION/ASSESSMENT PSYCHOSOCIAL Type of Emotional Support Provided: 1:1 discussion, Ventilation of feelings encouraged ADULT EDUCATION Education provided: Topic 1: Splinting Specific Content: If needing to cough, splint chest incision with pillow to reduce pain. Method: Verbal Provided to: Patient Patient understanding of education content: Verbalized analia /shen/ CASSY YU RN REGISTERED NURSE Signed: 08/11/2024 23:42 CASSY NICHOLS [facility] Aug 11, 2024 08:15 PM NURSING NOTE: LOCAL TITLE: VAAES SKIN INSPECTION/ASSESSMENT STANDARD TITLE: NURSING NOTE DATE OF NOTE: AUG 11, 2024@20:15 ENTRY DATE: AUG 11, 2024@23:42:51 AUTHOR: CASSY NICHOLS COSIGNER: URGENCY: STATUS: COMPLETED VAAES SKIN INSPECTION/ASSESSMENT Has ADDENDA Assessment Type: SKIN REINSPECTION/REASSESSMENT SKIN INSPECTION: Skin Color: Usual for ethnicity Skin Temperature: Warm Skin Moisture: Normal Skin Turgor: Elastic (normal/immediate) Keyla Skin Assessment: The patient's Keyla Scale Score is 21. The patient is considered not at risk for development of pressure ulcers/injuries. Sensory perception -- ability to respond meaningfully to pressure-related discomfort No impairment. Moisture -- degree to which skin is exposed to moisture Rarely moist. Activity -- ability to change and control body position Walks occasionally. Mobility -- ability to change and control body position No limitation. Nutrition -- usual food intake patterns Adequate. Friction and shear No apparent problem. INTERVENTIONS: The pressure injury interventions were not needed - patient/resident is not at risk. RISK FACTORS THAT INCREASE RISK FOR DEVELOPING PRESSURE INJURIES The patient/resident does not have any additional risk factors. Incision and Flaps: Incision 1: Location: Mid Chest Status: Edges well approximated Closure: Other: Dermabond PRINEO Stabilization: None Surrounding tissue: Intact Wound drainage none. Dressing type: Open to air Incision 2: Location: Left Forearm Status: Edges well approximated Closure: Other: Dermabond PRINEO Stabilization: None Surrounding tissue: Erythema Wound drainage none. Dressing type: Open to air SKIN/WOUND DRESSING: Location(s): Mildine Chest Clean Dry Open to air Second SKIN/WOUND DRESSING: Location(s): Left Forearm Clean Dry Open to air /camryn YU,RN REGISTERED NURSE Signed: 08/11/2024 23:47 08/11/2024 ADDENDUM STATUS: COMPLETED Steri strips are clean, dry and intact to ICD placement site in left upper chest. /camryn YU,RN REGISTERED NURSE Signed: 08/12/2024 00:33 CASSY NICHOLS [facility] Aug 11, 2024 05:21 PM NURSING INPATIENT NOTE: LOCAL TITLE: VAAES ACUTE INPATIENT NSG SHIFT ASSESSMENT STANDARD TITLE: NURSING INPATIENT NOTE DATE OF NOTE: AUG 11, 2024@17:21 ENTRY DATE: AUG 11, 2024@17:21:41 AUTHOR: MARCIE LEE COSIGNER: URGENCY: STATUS: COMPLETED Version 2.2 Charting in accordance with [place] [place] STANDARD (VAAES) ACUTE INPATIENT/REHABILITATION NURSING ADMISSION SCREENING, ASSESSMENT, AND STANDARDS OF CARE ASSESSMENT PAIN ASSESSMENT Patient's acceptable pain goal: Are you currently experiencing pain? No: MOSQUEDA FALL SCALE & TIPS PROGRAM Mosqueda Fall Scale: The Mosqueda Fall scale was performed and score was 40. This is indicative of moderate risk for falls. History of falling: immediate or within 3 months? No Secondary diagnosis: Yes Ambulatory aid: Crutches/cane(s)/walker Intravenous therapy/Heparin lock: No Gait/Transferring: Weakness Mental Status: Oriented to own ability/knows own limitations Fall Tailoring Interventions for Patient Safety (TIPS) Fall TIPS initiated with patient: Yes Interventions: Assistance out of bed: Call for assistance before getting out of bed ENVIRONMENTAL SAFETY MANAGEMENT Implemented safety standards of care: -[place] to unit & environment -Adequate room lighting -Bed in low and locked position -Call light within reach -Personal items within reach -Traffic path in room free of clutter -Non-slip footwear -Upper/half length side rails up for bed mobility -Sensory aids within reach -Encourage patient to utilize sensory support NEUROLOGICAL Neurological Orientation: Oriented x4 Level of Consciousness (AVPU): Alert = Appears aware of and responsive to the environment on their own. Follows commands, opens eyes spontaneously, and tracks objects. 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 Peripheral Pulses: All 4 extremities, 3+ normal. Edema: None RESPIRATORY Respirations: Unlabored Pattern: Regular Breath Sounds Auscultated: Left Upper Lobe: Clear Right Upper Lobe: Clear Right Middle Lobe: Clear Left Lower Lobe: Clear Right Lower Lobe: Clear GASTROINTESTINAL Last bowel movement: 10/4/24 Bowel movement reported by patient-unwitnessed Elimination: Continent Palpation: Soft, Non-tender Bowel Sounds: RUQ: Active LUQ: Active RLQ: Active LLQ: Active GENITOURINARY INTEGUMENTARY/SKIN/WOUND - (INCLUDING KEYLA) SEE NOTE: VAAES SKIN INPECTION/ASSESSMENT MOBILITY Mobility Status: Minimum assist: Stands with support only (Unsteady or requires verbal cueing) Equipment utilized: Walker Gait: Steady PSYCHOSOCIAL Type of Emotional Support Provided: Treatment discussion ADULT EDUCATION Comment: discussed use of call light for assistance /es/ MARCIE LEE RN REGISTERED NURSE Signed: 08/11/2024 17:31 MARCIE LEE [facility] Aug 11, 2024 05:10 PM NURSING NOTE: LOCAL TITLE: [facility] SKIN INSPECTION/ASSESSMENT STANDARD TITLE: NURSING NOTE DATE OF NOTE: AUG 11, 2024@17:10 ENTRY DATE: AUG 11, 2024@17:10:49 AUTHOR: MARCIE LEE EXP COSIGNER: URGENCY: STATUS: COMPLETED Assessment Type: SKIN REINSPECTION/REASSESSMENT SKIN INSPECTION: Skin Color: Usual for ethnicity Skin Temperature: Warm Skin Moisture: Normal Skin Turgor: Elastic (normal/immediate) Keyla Skin Assessment: The patient's Keyla Scale Score is 20. The patient is considered not at risk for development of pressure ulcers/injuries. Sensory perception -- ability to respond meaningfully to pressure-related discomfort No impairment. Moisture -- degree to which skin is exposed to moisture Rarely moist. Activity -- ability to change and control body position Walks occasionally. Mobility -- ability to change and control body position Slightly limited. Nutrition -- usual food intake patterns Adequate. Friction and shear No apparent problem. INTERVENTIONS: New or changed pressure ulcer/injury interventions or medical condition. Education: Provide patient/caregiver education regarding causes and prevention of pressure ulcers/injuries. Pressure-Redistribution measures: Encourage small, frequent position changes Maximize mobilization: Encourage activity as tolerated Manage moisture: Maintain clean and dry skin Manage nutrition: Provide or encourage oral care prn Reduce friction and shear: Elevate head of bed for meals, then lower within one hour after eating (unless contraindicated) RISK FACTORS THAT INCREASE RISK FOR DEVELOPING PRESSURE INJURIES The patient/resident does not have any additional risk factors. Wound - other than pressure ulcer/injury (includes open surgical wounds/incisions): Location: mid-sternal incision intact-COSMO upper abdomen transverse incision intact-DE ALCOHOLIZER Left upper chest incision (pacer) intact-COSMO left forearm incision(donor) intact-DE ALCOHOLIZER right leg incision intact-COSMO No Edema Wound drainage none. /shen/ MARCIE LEE RN REGISTERED NURSE Signed: 08/11/2024 17:21 MARCIE LEE [facility] Aug 11, 2024 03:17 PM NURSING ADMISSION EVALUATION NOTE: LOCAL TITLE: [facility] ACUTE INPATIENT NSG ADMISSION SCREEN STANDARD TITLE: NURSING ADMISSION EVALUATION NOTE DATE OF NOTE: AUG 11, 2024@15:17 ENTRY DATE: AUG 11, 2024@15:17:34 AUTHOR: MARCIE LEE EXP COSIGNER: URGENCY: STATUS: COMPLETED ALLERGY/ADVERSE DRUG REACTION (ADR) REVIEW (MRT5) FACILITY ALLERGY/ADR -------- No Remote Allergy/ADR Data available for this patient [facility] Allergy/Adverse Drug Reaction Review to be conducted by: Provider MEDICATION REVIEW (MRR1) Did patient bring medication(s) from home? No Medication Review to be conducted by Provider GENERAL INFORMATION Admission information given by: Patient Is there a legal guardian/conservator? Unknown Preferred language for discussing healthcare: Preferred mode of communication: Verbal Items at Bedside: Visual Aids: Standard Glasses INFECTIOUS DISEASE RISK SCREEN Travel Screen: Have you traveled within the [place] within the last 21 days? No Have you traveled outside the [place] within the last 21 days? No Within the last 14 days, have you had: No known exposure Other Exposure to Infectious Disease: No known exposure Patient reported the following symptoms: No Symptoms Present History of Multiple Drug Resistant Organism (MDRO): No NUTRITION SCREENING Malnutrition Screening Weight (Previous 6 months): Measurement DT WEIGHT LB(KG)[BMI] 08/11/2024 14:26 211.1(95.75)[30*] 06/29/2024 12:58 241.3(109.45)[35*] 06/19/2024 06:20 234(106.14)[34*] 06/07/2024 11:53 231.7(105.10)[33*] 06/05/2024 08:06 235.7(106.91)[34*] 05/17/2024 08:37 233.1(105.73)[34*] 04/07/2024 10:01 231(104.78)[33*] 02/17/2024 12:10 227.2(103.06)[33*] Lost weight recently without trying: No (0 points) Have you been eating poorly because of decreased appetite? No (0 points) Total Score: 0 Other Nutrition Screening Questions: The patient has concerns with their teeth that make it difficult to eat. Comment: no teeth The patient does not report overeating to the point of feeling sick or making themselves vomit. The patient denies gaining 10 lbs.(4.5 kgs) or more in the past 3 months without trying. The patient denies having any food allergies, intolerance, special dietary needs, or ethnic, cultural or restorationism preferences that would affect their dietary needs. Food Insecurity Screening Within the past 12 months, you worried whether your food would run out before you got money to buy more. Never true Within the past 12 months, the food you bought just did not last you and you did not have the money to get more. Never true Food Insecurity Disposition: Patient declined additional assistance/consults RISK SCREENINGS Alcohol Screen: Screen to be completed by: Provider *Does the patient consume alcohol? No Tobacco Use: Former - tobacco user Do you currently or have you ever used alternative nicotine products? No Substance Use Assessment: *Do you use any recreational drugs or narcotics (prescription or non-prescription)? No RISK OF WANDERING The patient does not have a history of wandering. The patient does not have a history of elopement. The patient is not expressing a desire to leave. SUICIDE SCREEN C-SSRS Screen is Negative EXPOSURE TO VIOLENCE AND ABUSE PRE-SCREEN Are you worried for your safety, that you will be hurt or harmed? No Has anyone tried to force you to sign papers or use your money against your will? No POST TRAUMATIC STRESS DISORDER CARE CONSIDERATIONS To minimize a startle response, what is your preference on how best to awaken you? No preference REPRODUCTIVE & SEXUAL HEALTH Do you have any sexual or reproductive concerns you would like your healthcare team to be aware of? No ADVANCE DIRECTIVE Notification of Rights Related to Advance Directives: Written notification not provided. Explain: not requested *The patient wishes to receive information about or assistance with Advance Care Planning and/or Advance Directive: No SPIRITUALITY Are there restorationism practices or spiritual concerns you want the tumbler tender, your provider, and other health care team members to know? No ANTICIPATED DISCHARGE NEEDS Where do you live? Housing owned/rented by [place]: Method of transportation upon discharge: Unknown: Are there any anticipated barriers to discharge? No EDUCATIONAL NEEDS/LEARNING STYLE Barriers to learning: None evident Patient learning style preferences: 1:1 VISITOR INFORMATION Will you have a primary support person while in the hospital? No Patient's Visitor Restriction preferences: No Privacy Review: No passcode provided due to opt out MOSQUEDA FALL SCALE & TIPS PROGRAM Mosqueda Fall Scale: The Mosqueda Fall scale was performed and score was 40. This is indicative of moderate risk for falls. History of falling: immediate or within 3 months? No Secondary diagnosis: Yes Ambulatory aid: Crutches/cane(s)/walker Intravenous therapy/Heparin lock: No Gait/Transferring: Weakness Mental Status: Oriented to own ability/knows own limitations Fall Tailoring Interventions for Patient Safety (TIPS) Fall TIPS initiated with patient: Yes Interventions: Assistance out of bed: Call for assistance before getting out of bed ASPIRATION RISK ASSESSMENT AND SWALLOW SCREEN Aspiration Risk(s): Screening complete. No aspiration risk identified. Bedside Swallow Screen not indicated. PAIN ASSESSMENT Patient's acceptable pain goal: Are you currently experiencing pain? No: /shen/ MARCIE LEE RN REGISTERED NURSE Signed: 08/11/2024 15:35 MARCIE LEE [facility] Aug 11, 2024 03:09 PM NURSING SNF CARE NOTE: LOCAL TITLE: [facility] SIDE RAIL/ENTRAPMENT RISK ASSESSMENT [facility] STANDARD TITLE: NURSING FOUNDATION DIRECTOR CARE NOTE DATE OF NOTE: AUG 11, 2024@15:09 ENTRY DATE: AUG 11, 2024@15:10:16 AUTHOR: MARCIE LEE EXP COSIGNER: URGENCY: STATUS: COMPLETED Siderail Entrapment Risk Assessment Cognitive Status Alert Oriented Side Rail Entrapment Assessment-upper right, upper left Patient was educated on water temperature safety /shen/ MARCIE LEE RN REGISTERED NURSE Signed: 08/11/2024 15:11 MARCIE LEE [facility] Aug 11, 2024 02:23 PM NURSING NOTE: LOCAL TITLE: [facility] PERSONAL EFFECTS STL STANDARD TITLE: NURSING NOTE DATE OF NOTE: AUG 11, 2024@14:23 ENTRY DATE: AUG 11, 2024@14:23:52 AUTHOR: DWAINE BENITEZ EXP COSIGNER: URGENCY: STATUS: COMPLETED PERSONAL EFFECTS Patient Valuables Observed: c-pap, clothes,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
--- OUTSIDE RECORDS SUMMARY | 2024-11-17 03:59 | XMS_ITS ---
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 Date/Time Encounter Type Encounter Description Reason Pro vider Source Aug 11, 2024 12:00 AM Outpatient Encounter EVENT (HISTORICAL) [...] 20 appointments. The data comes from all [facility]. Appointment Date/Time Appointment Type Appointme nt Facility Name Aug 24, 2024 10:00 AM AMBULATORY - MEDICINE [facility] Aug 24, 2024 10:30 AM AMBULATORY - MEDICINE [facility] Aug 30, 2024 09:30 AM AMBULATORY MEDICINE [facility] Aug 31, 2024 01:00 PM AMBULATORY - SURGERY [facility] Sep 21, 2024 01:30 PM AMBULATORY - MEDICINE [facility] Sep 22, 2024 11:00 AM AMBULATORY - MEDICINE [facility] Sep 29, 2024 12:30 PM AMBULATORY - MEDICINE [facility] Oct 02, 2024 09:30 AM AMBULATORY - MEDICINE [facility] Nov 20, 2024 10:30 AM AMBULATORY - SURGERY [facility] Nov 21, 2024 10:00 AM AMBULATORY - NONE [facility] Dec 11, 2024 10:30 AM AMBULATORY - MEDICINE [facility] Active, Pending, and Scheduled Orders This section includes a listing of several types of active, pending, and scheduled orders, including clinic medications orders, diagnostic test orders, procedure orders and consult orders; where the start date of the order is 45 days before the date of the Encounter or 45 days after the date of theEncounter. The data comes from all [facility]. Test Date/Time Test Type Test Details Facility Name Aug 02, 2024 12:00 AM Laboratory - Chemistry Order CBC BLOOD STAT SP [facility] Aug 02, 2024 12:00 AM Laboratory - Chemistry Order COMPREHENSIVE METABOLIC PANEL GREEN LI/HEP BLD/PLAS PLASMA SP [facility] Aug 17, 2024 03:47 PM Consult Order [facility] Cons Bedside [facility] Lab Results: +/- 30 days [...] Range Comment Aug 23, 2024 08:21 AM [facility] MAGNESIUM Specimen Type: PLASMA No comment entered. Ordering Provider: SILVIA REDDY Report Released Date/Time: Aug 22, 2024 11:26 AM Reporting Lab: [facility] [address] Performing Lab: [facility] [address] MAGNESIUM 1.8 mg/dL 1.6-2.6 Aug 23, 2024 08:21 AM [facility] CBC Specimen Type: BLOOD No comment entered. Ordering Provider: SILVIA REDDY Report Released Date/Time: Aug 22, 2024 11:19 AM Reporting Lab: [facility] [address] Performing Lab: [facility] [address] WBC 4.0 10*3/uL 3.6-11.2 RBC 3.65 10*6/uL [...] 10*3/uL 0.00-0.20 Aug 23, 2024 05:12 AM [facility] GLUCOSE,BLOOD-poct (STL) Specimen Type: BLOOD Comment: Test Performed by: [id number] Meter #: [id number] Ordering Provider: SILVIA REDDY Report Released Date/Time: Aug 23, 2024 05:23 AM Reporting Lab: [facility] [address] Performing Lab: [facility] [address] GLUCOSE,BLOOD- poct (STL) 99 mg/dL 72-99 Aug 23, 2024 02:45 AM [facility] OCCULT BLOOD FIT X1 SCREEN Specimen Type: FECES No comment entered. Ordering Provider: SILVIA REDDY Report Released Date/Time: Aug 22, 2024 11:23 AM Reporting Lab: [address] [address] Performing Lab: [facility] [address] [place] [phone] OCCULT BLOOD (FIT) #1 OF 1 Negative Negative Aug 22, 2024 07:30 PM [facility] OCCULT BLOOD FIT X1 SCREEN Specimen Type: FECES No comment entered. Ordering Provider: SILVIA REDDY Report Released Date/Time: Aug 22, 2024 11:23 AM Reporting Lab: [facility] [address] [place] [address] Performing Lab: [facility] [address] [place] [phone] OCCULT BLOOD (FIT) #1 OF 1 Negative Negative Aug 22, 2024 06:15 PM [facility] OCCULT BLOOD FIT X1 SCREEN Specimen Type: FECES No comment entered. Ordering Provider: SILVIA REDDY Report Released Date/Time: Aug 22, 2024 11:23 AM Reporting Lab: [address] [address] Performing Lab: [place] [address] [address] [facility] [address] OCCULT BLOOD (FIT) #1 OF 1 Negative Negative Aug 22, 2024 04:24 PM [facility] GLUCOSE,BLOOD-poct (STL) Specimen Type: BLOOD Comment: Test Performed by: [id number] Meter #: [id number] Ordering Provider: SILVIA REDDY Report Released Date/Time: Aug 22, 2024 04:36 PM Reporting Lab: [facility] [address] Performing Lab: [facility] [address] GLUCOSE,BLOOD- poct (STL) 176 mg/dL H -Aug 22, 2024 04:23 PM [facility] GLUCOSE,BLOOD-poct (STL) Specimen Type: BLOOD Comment: Test Performed by: [id number] Meter #: [id number] Ordering Provider: SILVIA REDDY Report Released Date/Time: Aug 22, 2024 04:36 PM Reporting Lab: [facility] [address] Performing Lab: [facility] [address] GLUCOSE,BLOOD- poct (STL) 221 mg/dL H 72-Aug 22, 2024 11:15 AM [facility] GLUCOSE,BLOOD-poct (STL) Specimen Type: BLOOD Comment: Test Performed by: [id number] Meter #: [id number] Ordering Provider: SILVIA REDDY Report Released Date/Time: Aug 22, 2024 11:27 AM Reporting Lab: [facility] [address] Performing Lab: [facility] [address] GLUCOSE,BLOOD- poct (STL) 140 mg/dL H 72-Aug 22, 2024 08:03 AM [facility] FERRITIN Specimen Type: SERUM No comment entered. Ordering Provider: JUDIT PERKINS Report Released Date/Time: Aug 18, 2024 11:01 AM Reporting Lab: [facility] [address] [facility] [address] Performing Lab: [facility] [address] [facility] [address] FERRITIN 79.50 ng/mL 22-275 Aug 22, 2024 08:03 AM [facility] IRON/TIBC PROFILE Specimen Type: SERUM No comment entered. Ordering Provider: JUDIT PERKINS Report Released Date/Time: Aug 18, 2024 11:01 AM Reporting Lab: [address] [address] Performing Lab: [place] [address] [facility] [address] TIBC 283 ug/dL 250-450 TRANSFERRIN 226 mg/dL 163-344 IRON SATURATION 7 L 20-50 IRON 19 ug/dL L 65-175 Aug 22, 2024 08:03 AM [facility] B12 Specimen Type: SERUM No comment entered. Ordering Provider: JUDIT PERKINS Report Released Date/Time: Aug 18, 2024 11:01 AM Reporting Lab: [facility] [address] Performing Lab: [facility] [address] B12 631 pg/mL 213-816 Aug 22, 2024 08:03 AM [facility] COMPREHENSIVE METABOLIC PANEL Specimen Type: PLASMA Comment: No hemolysis noted. Ordering Provider: SILVIA REDDY Report Released Date/Time: Aug 17, 2024 01:18 PM Reporting Lab: [facility] [address] [facility] [address] Performing Lab: [address] [address] CREATININE 0.80 mg/dL 0.7-1.3 UREA NITROGEN 9.7 [...] 94.0 >60 Aug 22, 2024 08:03 AM [facility] CBC Specimen Type: BLOOD No comment entered. Ordering Provider: SILVIA REDDY Report Released Date/Time: Aug 17, 2024 01:18 PM Reporting Lab: [facility] [address] Performing Lab: [facility] [address] WBC 3.5 10*3/uL L 3.6-11.2 RBC 3.23 [...] NRBC% 0 Aug 22, 2024 05:03 AM [facility] GLUCOSE,BLOOD-poct (STL) Specimen Type: BLOOD Comment: Test Performed by: [id number] Meter #: [id number] Ordering Provider: SILVIA REDDY Report Released Date/Time: Aug 22, 2024 06:17 AM Reporting Lab: [facility] [address] Performing Lab: [facility] [address] GLUCOSE,BLOOD- poct (STL) 170 mg/dL H 72-Aug 21, 2024 04:32 PM [facility] GLUCOSE,BLOOD-poct (STL) Specimen Type: BLOOD Comment: Test Performed by: [id number] Meter #: [id number] Ordering Provider: SILVIA REDDY Report Released Date/Time: Aug 21, 2024 04:49 PM Reporting Lab: [facility] [address] Performing Lab: [facility] [address] GLUCOSE,BLOOD- poct (STL) 169 mg/dL H 72-99 Aug 21, 2024 11:53 AM [facility] GLUCOSE,BLOOD-poct (STL) Specimen Type: BLOOD Comment: Test Performed by: [id number] Meter #: [id number] Ordering Provider: SLIVIA REDDY Report Released Date/Time: Aug 21, 2024 12:11 PM Reporting Lab: [facility] [address] Performing Lab: [facility] [address] GLUCOSE,BLOOD- poct (STL) 149 mg/dL H 72-99 Aug 21, 2024 05:10 AM [facility] GLUCOSE,BLOOD-poct (STL) Specimen Type: BLOOD Comment: Test Performed by: [id number] Meter #: [id number] Ordering Provider: SILVIA REDDY Report Released Date/Time: Aug 21, 2024 05:27 AM Reporting Lab: [facility] [place] [address] Performing Lab: [facility] [address] GLUCOSE,BLOOD- poct (STL) 118 mg/dL H 72-99 Aug 20, 2024 04:38 PM [facility] GLUCOSE,BLOOD-poct (STL) Specimen Type: BLOOD Comment: Test Performed by: [id number] Meter #: [id number] Ordering Provider: SILVIA REDDY Report Released Date/Time: Aug 21, 2024 01:55 AM Reporting Lab: [facility] [place] [address] Performing Lab: [facility] [place] [address] GLUCOSE,BLOOD- poct (STL) 169 mg/dL H 72-Aug 20, 2024 04:36 PM [facility] GLUCOSE,BLOOD-poct (STL) Specimen Type: BLOOD Comment: Test Performed by: [id number] Meter #: [id number] Ordering Provider: SILVIA REDDY Report Released Date/Time: Aug 21, 2024 01:55 AM Reporting Lab: [facility] [place] [address] Performing Lab: [facility] [address] GLUCOSE,BLOOD- poct (STL) 395 mg/dL H 72-99 Aug 20, 2024 11:45 AM [facility] GLUCOSE,BLOOD-poct (STL) Specimen Type: BLOOD Comment: Test Performed by: [id number] Meter #: [id number] Ordering Provider: SILVIA REDDY Report Released Date/Time: Aug 20, 2024 11:56 AM Reporting Lab: [facility] [place] [address] Performing Lab: [facility] [address] GLUCOSE,BLOOD- poct (STL) 169 mg/dL H -Aug 20, 2024 05:06 AM [facility] GLUCOSE,BLOOD-poct (STL) Specimen Type: BLOOD Comment: Test Performed by: [id number] Meter #: [id number] Ordering Provider: SILVIA REDDY Report Released Date/Time: Aug 20, 2024 06:05 AM Reporting Lab: [facility] [address] Performing Lab: [facility] [address] GLUCOSE,BLOOD- poct (STL) 115 mg/dL H Aug 19, 2024 04:23 PM [facility] GLUCOSE,BLOOD-poct (STL) Specimen Type: BLOOD Comment: Test Performed by: [id number] Meter #: [id number] Ordering Provider: SILVIA REDDY Report Released Date/Time: Aug 19, 2024 05:54 PM Reporting Lab: [facility] [address] Performing Lab: [facility] [address] GLUCOSE,BLOOD- poct (STL) 137 mg/dL H Aug 19, 2024 11:28 AM [facility] GLUCOSE,BLOOD-poct (STL) Specimen Type: BLOOD Comment: Test Performed by: [id number] Meter #: [id number] Ordering Provider: SILVIA REDDY Report Released Date/Time: Aug 19, 2024 11:51 AM Reporting Lab: [facility] [address] Performing Lab: [facility] [address] GLUCOSE,BLOOD- poct (STL) 190 mg/dL H -Aug 19, 2024 05:21 AM [facility] GLUCOSE,BLOOD-poct (STL) Specimen Type: BLOOD Comment: Test Performed by: [id number] Meter #: [id number] Ordering Provider: SILVIA REDDY Report Released Date/Time: Aug 19, 2024 05:56 AM Reporting Lab: [facility] [address] Performing Lab: [facility] [address] GLUCOSE,BLOOD- poct (STL) 130 mg/dL H Aug 18, 2024 04:49 PM [facility] GLUCOSE,BLOOD-poct (STL) Specimen Type: BLOOD Comment: Test Performed by: [id number] Meter #: [id number] Ordering Provider: SILVIA REDDY Report Released Date/Time: Aug 18, 2024 05:01 PM Reporting Lab: [facility] [address] Performing Lab: [facility] [address] GLUCOSE,BLOOD- poct (STL) 129 mg/dL H Aug 18, 2024 11:23 AM [facility] GLUCOSE,BLOOD-poct (STL) Specimen Type: BLOOD Comment: Test Performed by: [id number] Meter #: [id number] Ordering Provider: SILVIA REDDY Report Released Date/Time: Aug 18, 2024 11:41 AM Reporting Lab: [facility] [address] Performing Lab: [facility] [address] GLUCOSE,BLOOD- poct (STL) 180 mg/dL H Aug 18, 2024 05:08 AM [facility] GLUCOSE,BLOOD-poct (STL) Specimen Type: BLOOD Comment: Test Performed by: [id number] Meter #: [id number] Ordering Provider: SILVIA REDDY Report Released Date/Time: Aug 18, 2024 05:31 AM Reporting Lab: [facility] [address] Performing Lab: [facility] [address] GLUCOSE,BLOOD- poct (STL) 127 mg/dL H 72-Aug 17, 2024 07:32 PM [facility] GLUCOSE,BLOOD-poct (STL) Specimen Type: BLOOD Comment: Test Performed by: [id number] Meter #: [id number] Ordering Provider: SILVIA REDDY Report Released Date/Time: Aug 17, 2024 07:59 PM Reporting Lab: [facility] [address] Performing Lab: [facility] [place] [address] GLUCOSE,BLOOD- poct (STL) 154 mg/dL H -Aug 17, 2024 04:24 PM [facility] GLUCOSE,BLOOD-poct (STL) Specimen Type: BLOOD Comment: Test Performed by: [id number] Meter #: [id number] Ordering Provider: SILVIA REDDY Report Released Date/Time: Aug 17, 2024 04:35 PM Reporting Lab: [facility] [address] Performing Lab: [facility] [address] GLUCOSE,BLOOD- poct (STL) 178 mg/dL H 72-Aug 17, 2024 05:09 AM [facility] GLUCOSE,BLOOD-poct (STL) Specimen Type: BLOOD Comment: Test Performed by: [id number] Meter #: [id number] Ordering Provider: SILVIA REDDY Report Released Date/Time: Aug 17, 2024 05:54 AM Reporting Lab: [facility] [place] [address] Performing Lab: [facility] [address] GLUCOSE,BLOOD- poct (STL) 124 mg/dL H Aug 16, 2024 07:40 PM [facility] GLUCOSE,BLOOD-poct (STL) Specimen Type: BLOOD Comment: Test Performed by: [id number] Meter #: [id number] Ordering Provider: SILVIA REDDY Report Released Date/Time: Aug 16, 2024 08:28 PM Reporting Lab: [facility] [address] Performing Lab: [facility] [address] GLUCOSE,BLOOD- poct (STL) 144 mg/dL H Aug 16, 2024 04:19 PM [facility] GLUCOSE,BLOOD-poct (STL) Specimen Type: BLOOD Comment: Test Performed by: [id number] Meter #: [id number] Ordering Provider: SILVIA REDDY Report Released Date/Time: Aug 16, 2024 04:45 PM Reporting Lab: [facility] [address] Performing Lab: [facility] [address] GLUCOSE,BLOOD- poct (STL) 138 mg/dL H Aug 16, 2024 11:52 AM [facility] GLUCOSE,BLOOD-poct (STL) Specimen Type: BLOOD Comment: Test Performed by: [id number] Meter #: [id number] Ordering Provider: SILVIA REDDY Report Released Date/Time: Aug 16, 2024 12:04 PM Reporting Lab: [facility] [address] Performing Lab: [facility] [address] GLUCOSE,BLOOD- poct (STL) 135 mg/dL H Aug 16, 2024 05:24 AM [facility] GLUCOSE,BLOOD-poct (STL) Specimen Type: BLOOD Comment: Test Performed by: [id number] Meter #: [id number] Ordering Provider: SILVIA REDDY Report Released Date/Time: Aug 16, 2024 05:38 AM Reporting Lab: [facility] [address] Performing Lab: [facility] [address] GLUCOSE,BLOOD- poct (STL) 151 mg/dL H Aug 15, 2024 07:31 PM [facility] GLUCOSE,BLOOD-poct (STL) Specimen Type: BLOOD Comment: Test Performed by: [id number] Meter #: [id number] Ordering Provider: SILVIA REDDY Report Released Date/Time: Aug 15, 2024 08:07 PM Reporting Lab: [facility] [address] Performing Lab: [facility] [address] GLUCOSE,BLOOD- poct (STL) 173 mg/dL H Aug 15, 2024 04:18 PM [facility] GLUCOSE,BLOOD-poct (STL) Specimen Type: BLOOD Comment: Test Performed by: [id number] Meter #: [id number] Ordering Provider: SILVIA REDDY Report Released Date/Time: Aug 15, 2024 04:59 PM Reporting Lab: [facility] [address] Performing Lab: [facility] [address] GLUCOSE,BLOOD- poct (STL) 136 mg/dL H Aug 15, 2024 04:16 PM [facility] GLUCOSE,BLOOD-poct (STL) Specimen Type: BLOOD Comment: Test Performed by: [id number] Meter #: [id number] Ordering Provider: SILVIA REDDY Report Released Date/Time: Aug 15, 2024 04:59 PM Reporting Lab: [facility] [address] Performing Lab: [facility] [address] GLUCOSE,BLOOD- poct (STL) 194 mg/dL H 72-Aug 15, 2024 11:39 AM [facility] GLUCOSE,BLOOD-poct (STL) Specimen Type: BLOOD Comment: Test Performed by: [id number] Meter #: [id number] Ordering Provider: SILIVA REDDY Report Released Date/Time: Aug 15, 2024 12:00 PM Reporting Lab: [facility] [address] Performing Lab: [facility] [address] GLUCOSE,BLOOD- poct (STL) 127 mg/dL H -Aug 15, 2024 05:07 AM [facility] GLUCOSE,BLOOD-poct (STL) Specimen Type: BLOOD Comment: Test Performed by: [id number] Meter #: [id number] Ordering Provider: SILVIA REDDY Report Released Date/Time: Aug 15, 2024 06:14 AM Reporting Lab: [facility] [address] Performing Lab: [facility] [address] GLUCOSE,BLOOD- poct (STL) 151 mg/dL H 72-99 Aug 14, 2024 04:22 PM [facility] GLUCOSE,BLOOD-poct (STL) Specimen Type: BLOOD Comment: Test Performed by: [id number] Meter #: [id number] Ordering Provider: SILVIA REDDY Report Released Date/Time: Aug 14, 2024 04:52 PM Reporting Lab: [facility] [place] [address] Performing Lab: [facility] [address] GLUCOSE,BLOOD- poct (STL) 129 mg/dL H 72-99 Aug 14, 2024 11:21 AM [facility] GLUCOSE,BLOOD-poct (STL) Specimen Type: BLOOD Comment: Test Performed by: [id number] Meter #: [id number] Ordering Provider: SILVIA REDDY Report Released Date/Time: Aug 14, 2024 11:37 AM Reporting Lab: [facility] [address] Performing Lab: [facility] [address] GLUCOSE,BLOOD- poct (STL) 135 mg/dL H 72-Aug 14, 2024 06:59 AM [facility] QUANTIFERON-TB,4 TUBE Specimen Type: BLOOD Comment: [...] For additional information, please refer to http://education. [email or web address] 1. NextMusic.TV/faq/OIJ500 (This link is being provided for information/ educational purposes only.) Test Performed by [employer], [employer] [facility], [address] [place] [id number] Tommie Garcia M.D., Ph.D., Director of Laboratories , [facility] [id number] Ordering Provider: SILVIA REDDY Report Released Date/Time: Aug 11, 2024 03:58 PM Reporting Lab: [facility] [address] [facility] [address] Performing Lab: [facility] [id number] [place] [id number] .NIL - QUANTIFERON 0.04 [IU]/mL .MITOGEN-NIL 0.39 [IU]/mL .QUANTIFERON INDETERMINATE NEGATIVE .TB1-NIL <0.00 [IU]/mL .TB2-NIL <0.00 [IU]/mL Aug 14, 2024 06:59 AM [facility] B12 Specimen Type: SERUM No comment entered. Ordering Provider: SILVIA REDDY Report Released Date/Time: Aug 11, 2024 03:58 PM Reporting Lab: [facility] [address] Performing Lab: [facility] [address] B12 757 pg/mL 213-816 Aug 14, 2024 06:59 AM [facility] MAGNESIUM Specimen Type: PLASMA Comment: No hemolysis noted. Ordering Provider: SILVIA REDDY Report Released Date/Time: Aug 11, 2024 03:58 PM Reporting Lab: [facility] [address] Performing Lab: [facility] [address] MAGNESIUM 1.9 mg/dL 1.6-2.6 Aug 14, 2024 06:59 AM [facility] FOLATE (STL-MA) Specimen Type: SERUM No comment entered. Ordering Provider: SILVIA REDDY Report Released Date/Time: Aug 11, 2024 03:58 PM Reporting Lab: [facility] [address] Performing Lab: [facility] [address] FOLATE (STL-MA) 6.8 ng/mL L 7-20 Aug 14, 2024 06:59 AM [facility] VITAMIN D, 25-HYDROXY Specimen Type: SERUM No comment entered. Ordering Provider: SILVIA REDDY Report Released Date/Time: Aug 11, 2024 03:58 PM Reporting Lab: [facility] [address] Performing Lab: [facility] [address] VITAMIN D, 25-HYDROXY 8.9 ng/mL L 30-96 Aug 14, 2024 06:59 AM [facility] CBC Specimen Type: BLOOD No comment entered. Ordering Provider: SILVIA REDDY Report Released Date/Time: Aug 11, 2024 03:58 PM Reporting Lab: [facility] [address] Performing Lab: [facility] [id number] WBC 4.1 10*3/uL 3.6-11.2 RBC 3.20 10*6/uL [...] 10*3/uL 0.00-0.20 Aug 14, 2024 06:59 AM [facility] COMPREHENSIVE METABOLIC PANEL Specimen Type: PLASMA Comment: No hemolysis noted. Ordering Provider: SILVIA REDDY Report Released Date/Time: Aug 11, 2024 03:58 PM Reporting Lab: [facility] [id number] Performing Lab: [facility] [address] CREATININE 0.75 mg/dL 0.70-1.30 UREA NITROGEN 13.6 [...] 95.88 >60 Aug 14, 2024 05:08 AM [facility] GLUCOSE,BLOOD-poct (STL) Specimen Type: BLOOD Comment: Test Performed by: [id number] Meter #: [id number] Ordering Provider: SILVIA REDDY Report Released Date/Time: Aug 14, 2024 05:52 AM Reporting Lab: [facility] [address] Performing Lab: [facility] [address] GLUCOSE,BLOOD- poct (STL) 135 mg/dL H 72-99 Aug 13, 2024 04:27 PM [facility] GLUCOSE,BLOOD-poct (STL) Specimen Type: BLOOD Comment: Test Performed by: [id number] Meter #: [id number] Ordering Provider: SILVIA REDDY Report Released Date/Time: Aug 13, 2024 04:41 PM Reporting Lab: [facility] [address] Performing Lab: [facility] [address] GLUCOSE,BLOOD- poct (STL) 181 mg/dL H 72-Aug 13, 2024 11:33 AM [facility] GLUCOSE,BLOOD-poct (STL) Specimen Type: BLOOD Comment: Test Performed by: [id number] Meter #: [id number] Ordering Provider: SILVIA REDDY Report Released Date/Time: Aug 13, 2024 03:55 PM Reporting Lab: [facility] [address] Performing Lab: [facility] [place] [address] GLUCOSE,BLOOD- poct (STL) 140 mg/dL H -Aug 13, 2024 05:54 AM [facility] GLUCOSE,BLOOD-poct (STL) Specimen Type: BLOOD Comment: Test Performed by: [id number] Meter #: [id number] Ordering Provider: SILVIA REDDY Report Released Date/Time: Aug 13, 2024 06:20 AM Reporting Lab: [facility] [place] [phone] Performing Lab: [facility] [id number] GLUCOSE,BLOOD- poct (STL) 112 mg/dL H -Aug 12, 2024 04:35 PM [facility] GLUCOSE,BLOOD-poct (STL) Specimen Type: BLOOD Comment: Test Performed by: [id number] Meter #: [id number] Ordering Provider: SILVIA REDDY Report Released Date/Time: Aug 12, 2024 04:47 PM Reporting Lab: [facility] [phone] Performing Lab: [facility] [address] GLUCOSE,BLOOD- poct (STL) 128 mg/dL H 72-99 Aug 12, 2024 11:26 AM [facility] GLUCOSE,BLOOD-poct (STL) Specimen Type: BLOOD Comment: Test Performed by: [id number] Meter #: [id number] Ordering Provider: SILVIA REDDY Report Released Date/Time: Aug 12, 2024 11:45 AM Reporting Lab: [facility] [address] Performing Lab: [facility] [place] [phone] GLUCOSE,BLOOD- poct (STL) 188 mg/dL H -Aug 12, 2024 06:13 AM [facility] GLUCOSE,BLOOD-poct (STL) Specimen Type: BLOOD Comment: Test Performed by: [id number] Meter #: [id number] Ordering Provider: SILVIA REDDY Report Released Date/Time: Aug 12, 2024 06:25 AM Reporting Lab: [facility] [address] Performing Lab: [facility] [address] GLUCOSE,BLOOD- poct (STL) 116 mg/dL H 72-99 Aug 11, 2024 04:10 PM [facility] GLUCOSE,BLOOD-poct (STL) Specimen Type: BLOOD Comment: Test Performed by: [id number] Meter #: [id number] Ordering Provider: SILVIA REDDY Report Released Date/Time: Aug 11, 2024 04:27 PM Reporting Lab: [facility] [place] [id number] Performing Lab: [facility] [place] [phone] GLUCOSE,BLOOD- poct (STL) 184 mg/dL H 72-99 Aug 11, 2024 01:44 PM [facility] MRSA SURVL NARES DNA Specimen [...] Aug 11, 2024 02:03 PM Reporting Lab: [address] [address] Performing Lab: [address] [address] MRSA SURVL NARES DNA Negative Negative Jul 20, 2024 11:18 AM [facility] APTT Specimen Type: PLASMA No comment entered. Ordering Provider: MANUEL BAIRD Report Released Date/Time: Jul 19, 2024 04:00 PM Reporting Lab: [facility] [address] [place] [phone] Performing Lab: [address] [address] APTT 32.1 s 26.7-39.9 Jul 20, 2024 11:18 AM [facility] PT/INR NEW ([facility]) Specimen Type: PLASMA No comment entered. Ordering Provider: MANUEL BAIRD Report Released Date/Time: Jul 19, 2024 04:00 PM Reporting Lab: [address] [address] Performing Lab: [address] [address] PROTIME 14.4 s H 9.4-12.5 INR VALUE 1.3 {INR} Jul 20, 2024 11:18 AM [facility] CBC Specimen Type: BLOOD No comment entered. Ordering Provider: MANUEL BAIRD Report Released Date/Time: Jul 19, 2024 04:00 PM Reporting Lab: [facility] [address] [facility] [address] Performing Lab: [address] [address] WBC 4.7 10*3/uL 3.6-11.2 RBC 4.86 10*6/uL [...] 1.6 1.0-7.0 Jul 17, 2024 08:02 AM [facility] BASIC METABOLIC PANEL Specimen Type: PLASMA Comment: No hemolysis noted. Ordering Provider: MARY SERNA Report Released Date/Time: Jun 07, 2024 01:43 PM Reporting Lab: [facility] [address] [place] [id number] Performing Lab: [address] [address] CREATININE 0.85 mg/dL 0.7-1.3 UREA NITROGEN 15.2 [...] AM QUIT TOBACCO >7 YEARS AGO [facility] Tobacco Use History This section includes a history of the smoking, or tobacco-related health factors, that were collected on or before the date of the Encounter. The data comes from the [place] facility where the Encounter took place. Date/Time Smoking Status/Tobacco Use Comment F acility Sep 30, 2015 10:12 AM QUIT TOBACCO >7 YEARS AGO [facility] Oct 29, 2014 10:23 AM QUIT TOBACCO >7 YEARS AGO [facility] Dec 27, 2013 01:27 PM QUIT TOBACCO >7 YEARS AGO [facility] Feb 24, 2013 02:01 PM LIFETIME NON-USER OF TOBACCO [facility] Feb 11, 2009 10:09 AM QUIT TOBACCO >7 YEARS AGO [facility] Oct 06, 2006 09:30 AM CURRENT NON-TOBACC O USER-HX OF USE [facility] Oct 06, 2006 09:30 AM TOBACCO TERMINATION STAGE [facility] Advance Directives: All historical and current Section Date Range: From patient's date of to the date document was created. This section includes ALL of a patient's completed or amended [place] Advance and Rescinded Directives. The entries below indicate that a directive exists for the patient, but an actual copy is not included with this document. The data comes from all [place] facilities. Date Advance Directives Provider Source Jan 19, 2017 ADVANCE DIRECTIVE DISCUSSION ERICK BARDALES [facility]
--- OUTSIDE RECORDS SUMMARY | 2024-11-17 03:59 | XMS_ITS | Encounter Summary ---
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 This section includes future appointments and future orders which are active, pending or scheduled. Future Appointments This section includes appointments that were scheduled to occur 6 months from the date of the Encounter, up to a maximum of 20 appointments. The data comes from all [facility] facilities. Appointment Date/Time Appointment Type Appointme nt Facility Name Aug 24, 2024 10:00 AM AMBULATORY - MEDICINE [facility] Aug 24, 2024 10:30 AM AMBULATORY - MEDICINE [facility] Aug 30, 2024 09:30 AM AMBULATORY - MEDICINE [facility] Aug 31, 2024 01:00 PM [facility] SUR[facility]ERY [facility] Sep 21, 2024 01:30 PM AMBULATORY - MEDICINE [facility] Sep 22, 2024 11:00 AM AMBULATORY - MEDICINE [facility] Sep 29, 2024 12:30 PM AMBULATORY - MEDICINE [facility] Oct 02, 2024 09:30 AM AMBULATORY - MEDICINE [facility] Nov 20, 2024 10:30 AM [facility]ULATORY - SUR[facility]ERY [facility] Nov 21, 2024 10:00 AM AMBULATORY - NONE [facility] Dec 11, 2024 10:30 AM AMBULATORY - MEDICINE [facility] Active, Pending, and Scheduled Orders This section includes a listing of several types of active, pending, and scheduled orders, including clinic medications orders, diagnostic test orders, procedure orders and consult orders; where the start date of the order is 45 days before the date of the Encounter or 45 days after the date of theEncounter. The data comes from all [place] treatment facilities. Test Date/Time Test Type Test Details Facility Name Aug 02, 2024 12:00 AM Laboratory - Chemistry Order CBC BLOOD STAT SP [facility] Aug 02, 2024 12:00 AM Laboratory - Chemistry Order COMPREHENSIVE METABOLIC PANEL GREEN LI/HEP BLD/PLAS PLASMA SP [facility] Aug 17, 2024 03:47 PM Consult Order [facility] Cons Bedside [facility] Lab Results: +/- 30 [...] Aug 22, 2024 11:26 AM Reporting Lab: [facility] [address] Performing Lab: [facility] [address] MAGNESIUM 1.8 mg/dL 1.6-2.6 Aug 23, 2024 08:21 AM [facility] CBC Specimen Type: BLOOD No comment entered. Ordering Provider: SIMEON REDDY Report Released Date/Time: Aug 22, 2024 11:19 AM Reporting Lab: [facility] [address] Performing Lab: [facility] [address] WBC 4.0 10*3/uL 3.6-11.2 RBC 3.65 10*6/uL [...] Specimen Type: BLOOD Comment: Test Performed by: [id number] Meter #: [id number] Ordering Provider: SIMEON REDDY Report Released Date/Time: Aug 23, 2024 05:23 AM Reporting Lab: [facility] [address] Performing Lab: [facility] [address] GLUCOSE,BLOOD- poct (STL) 99 mg/dL 72-99 Aug 23, 2024 02:45 AM [facility] OCCULT BLOOD FIT X1 SCREEN Specimen Type: FECES No comment entered. Ordering Provider: SIMEON REDDY Report Released Date/Time: Aug 22, 2024 11:23 AM Reporting Lab: [address] [address] Performing Lab: [address] [address] OCCULT BLOOD (FIT) #1 OF 1 Negative Negative Aug 22, 2024 07:30 PM [facility] OCCULT BLOOD FIT X1 SCREEN Specimen Type: FECES No comment entered. Ordering Provider: SIMEON REDDY Report Released Date/Time: Aug 22, 2024 11:23 AM Reporting Lab: [address] [address] Performing Lab: [address] [address] OCCULT BLOOD (FIT) #1 OF 1 Negative Negative Aug 22, 2024 06:15 PM [facility] OCCULT BLOOD FIT X1 SCREEN Specimen Type: FECES No comment entered. Ordering Provider: SIMEON REDDY Report Released Date/Time: Aug 22, 2024 11:23 AM Reporting Lab: [address] [address] Performing Lab: [address] [address] OCCULT BLOOD (FIT) #1 OF 1 Negative Negative Aug 22, 2024 04:24 PM [facility] GLUCOSE,BLOOD-poct (STL) Specimen Type: BLOOD Comment: Test Performed by: [id number] Meter #: [id number] Ordering Provider: SIMEON REDDY Report Released Date/Time: Aug 22, 2024 04:36 PM Reporting Lab: [facility] [address] Performing Lab: [facility] [address] GLUCOSE,BLOOD- poct (STL) 176 mg/dL H 72-99 Aug 22, 2024 04:23 PM [facility] GLUCOSE,BLOOD-poct (STL) Specimen Type: BLOOD Comment: Test Performed by: [id number] Meter #: [id number] Ordering Provider: SIMEON REDDY Report Released Date/Time: Aug 22, 2024 04:36 PM Reporting Lab: [facility] [address] Performing Lab: [facility] [address] GLUCOSE,BLOOD- poct (STL) 221 mg/dL H 72-99 Aug 22, 2024 11:15 AM [facility] GLUCOSE,BLOOD-poct (STL) Specimen Type: BLOOD Comment: Test Performed by: [id number] Meter #: [id number] Ordering Provider: SIMEON REDDY Report Released Date/Time: Aug 22, 2024 11:27 AM Reporting Lab: [facility] [address] Performing Lab: [facility] [address] GLUCOSE,BLOOD- poct (STL) 140 mg/dL H 72-99 Aug 22, 2024 08:03 AM [facility] FERRITIN Specimen Type: SERUM No comment entered. Ordering Provider: JUDIT PERKINS Report Released Date/Time: Aug 18, 2024 11:01 AM Reporting Lab: [address] [address] Performing Lab: [place] [address] [facility] [address] FERRITIN 79.50 ng/mL 22-275 Aug 22, 2024 08:03 AM [facility] IRON/TIBC PROFILE Specimen Type: SERUM No comment entered. Ordering Provider: JUDIT PERKINS Report Released Date/Time: Aug 18, 2024 11:01 AM Reporting Lab: [address] [address] Performing Lab: [place] [address] [facility] [address] TIBC 283 ug/dL 250-450 TRANSFERRIN 226 mg/dL 163-344 IRON SATURATION 7 L 20-50 IRON 19 ug/dL L 65-175 Aug 22, 2024 08:03 AM [facility] B12 Specimen Type: SERUM No comment entered. Ordering Provider: JUDIT PERKINS Report Released Date/Time: Aug 18, 2024 11:01 AM Reporting Lab: [facility] #1 [facility] [address] Performing Lab: [facility] [address] B12 631 pg/mL 213-816 Aug 22, 2024 08:03 AM [facility] COMPREHENSIVE METABOLIC PANEL Specimen Type: PLASMA Comment: No hemolysis noted. Ordering Provider: SIMENO REDDY Report Released Date/Time: Aug 17, 2024 01:18 PM Reporting Lab: [facility] [address] [facility] [address] Performing Lab: [facility] [address] [facility] [address] CREATININE 0.80 mg/dL 0.7-1.3 UREA NITROGEN 9.7 [...] 22, 2024 08:03 AM [facility] CBC Specimen Type: BLOOD No comment entered. Ordering Provider: SIMEON REDDY Report Released Date/Time: Aug 17, 2024 01:18 PM Reporting Lab: [facility] [address] Performing Lab: [facility] [address] WBC 3.5 10*3/uL L 3.6-11.2 RBC 3.23 [...] NRBC% 0 Aug 22, 2024 05:03 AM [facility] GLUCOSE,BLOOD-poct (STL) Specimen Type: BLOOD Comment: Test Performed by: [id number] Meter #: [id number] Ordering Provider: SIMEON REDDY Report Released Date/Time: Aug 22, 2024 06:17 AM Reporting Lab: [facility] [address] Performing Lab: [facility] [address] GLUCOSE,BLOOD- poct (STL) 170 mg/dL H 72-99 Aug 21, 2024 04:32 PM [facility] GLUCOSE,BLOOD-poct (STL) Specimen Type: BLOOD Comment: Test Performed by: [id number] Meter #: [id number] Ordering Provider: SIMEON REDDY Report Released Date/Time: Aug 21, 2024 04:49 PM Reporting Lab: [facility] [address] Performing Lab: [facility] #1 [facility] [address] GLUCOSE,BLOOD- poct (STL) 169 mg/dL H 72-99 Aug 21, 2024 11:53 AM [facility] GLUCOSE,BLOOD-poct (STL) Specimen Type: BLOOD Comment: Test Performed by: [id number] Meter #: [id number] Ordering Provider: SIMEON REDDY Report Released Date/Time: Aug 21, 2024 12:11 PM Reporting Lab: [facility] #1 [facility] [address] Performing Lab: [facility] #1 [facility] [address] GLUCOSE,BLOOD- poct (STL) 149 mg/dL H 72-Aug 21, 2024 05:10 AM [facility] GLUCOSE,BLOOD-poct (STL) Specimen Type: BLOOD Comment: Test Performed by: [id number] Meter #: [id number] Ordering Provider: SIMEON REDDY Report Released Date/Time: Aug 21, 2024 05:27 AM Reporting Lab: [facility] #1 [facility] [address] Performing Lab: [facility] #1 [facility] [address] GLUCOSE,BLOOD- poct (STL) 118 mg/dL H -Aug 20, 2024 04:38 PM [facility] GLUCOSE,BLOOD-poct (STL) Specimen Type: BLOOD Comment: Test Performed by: [id number] Meter #: [id number] Ordering Provider: SIMEON REDDY Report Released Date/Time: Aug 21, 2024 01:55 AM Reporting Lab: [facility] #1 [facility] [address] Performing Lab: [facility] #1 [facility] [address] GLUCOSE,BLOOD- poct (STL) 169 mg/dL H 72-99 Aug 20, 2024 04:36 PM [facility] GLUCOSE,BLOOD-poct (STL) Specimen Type: BLOOD Comment: Test Performed by: [id number] Meter #: [id number] Ordering Provider: SIMEON REDDY Report Released Date/Time: Aug 21, 2024 01:55 AM Reporting Lab: [facility] #1 [place] [phone] Performing Lab: [facility] #[address] [place] [address] GLUCOSE,BLOOD- poct (STL) 395 mg/dL H 72-99 Aug 20, 2024 11:45 AM [facility] GLUCOSE,BLOOD-poct (STL) Specimen Type: BLOOD Comment: Test Performed by: [id number] Meter #: [id number] Ordering Provider: SIMEON REDDY Report Released Date/Time: Aug 20, 2024 11:56 AM Reporting Lab: [facility] [place] [address] Performing Lab: [facility] #[address] [place] [address] GLUCOSE,BLOOD- poct (STL) 169 mg/dL H 72-99 Aug 20, 2024 05:06 AM [facility] GLUCOSE,BLOOD-poct (STL) Specimen Type: BLOOD Comment: Test Performed by: [id number] Meter #: [id number] Ordering Provider: SIMEON REDDY Report Released Date/Time: Aug 20, 2024 06:05 AM Reporting Lab: [facility] #1 [place] [address] Performing Lab: [facility] #1 [place] [address] GLUCOSE,BLOOD- poct (STL) 115 mg/dL H 72-99 Aug 19, 2024 04:23 PM [facility] GLUCOSE,BLOOD-poct (STL) Specimen Type: BLOOD Comment: Test Performed by: [id number] Meter #: [id number] Ordering Provider: SIMEON REDDY Report Released Date/Time: Aug 19, 2024 05:54 PM Reporting Lab: [facility] #[address] [place] [address] Performing Lab: [facility] [address] GLUCOSE,BLOOD- poct (STL) 137 mg/dL H Aug 19, 2024 11:28 AM [facility] GLUCOSE,BLOOD-poct (STL) Specimen Type: BLOOD Comment: Test Performed by: [id number] Meter #: [id number] Ordering Provider: SIMEON REDDY Report Released Date/Time: Aug 19, 2024 11:51 AM Reporting Lab: [facility] [address] Performing Lab: [facility] #1 [facility] [address] GLUCOSE,BLOOD- poct (STL) 190 mg/dL H Aug 19, 2024 05:21 AM [facility] GLUCOSE,BLOOD-poct (STL) Specimen Type: BLOOD Comment: Test Performed by: [id number] Meter #: [id number] Ordering Provider: SIMEON REDDY Report Released Date/Time: Aug 19, 2024 05:56 AM Reporting Lab: [facility] [address] Performing Lab: [facility] #1 [facility] [address] GLUCOSE,BLOOD- poct (STL) 130 mg/dL H Aug 18, 2024 04:49 PM [facility] GLUCOSE,BLOOD-poct (STL) Specimen Type: BLOOD Comment: Test Performed by: [id number] Meter #: [id number] Ordering Provider: SIMEON REDDY Report Released Date/Time: Aug 18, 2024 05:01 PM Reporting Lab: [facility] [address] Performing Lab: [facility] #1 [facility] [address] GLUCOSE,BLOOD- poct (STL) 129 mg/dL H Aug 18, 2024 11:23 AM [facility] GLUCOSE,BLOOD-poct (STL) Specimen Type: BLOOD Comment: Test Performed by: [id number] Meter #: [id number] Ordering Provider: SIMEON REDDY Report Released Date/Time: Aug 18, 2024 11:41 AM Reporting Lab: [facility] #1 [facility] [address] Performing Lab: [facility] #1 [facility] [address] GLUCOSE,BLOOD- poct (STL) 180 mg/dL H -Aug 18, 2024 05:08 AM [facility] GLUCOSE,BLOOD-poct (STL) Specimen Type: BLOOD Comment: Test Performed by: [id number] Meter #: [id number] Ordering Provider: SIMEON REDDY Report Released Date/Time: Aug 18, 2024 05:31 AM Reporting Lab: [facility] #1 [facility] [address] Performing Lab: [facility] #1 [facility] [address] GLUCOSE,BLOOD- poct (STL) 127 mg/dL H -Aug 17, 2024 07:32 PM [facility] GLUCOSE,BLOOD-poct (STL) Specimen Type: BLOOD Comment: Test Performed by: [id number] Meter #: [id number] Ordering Provider: SIMEON REDDY Report Released Date/Time: Aug 17, 2024 07:59 PM Reporting Lab: [facility] #1 [facility] [address] Performing Lab: [facility] #1 [facility] [address] GLUCOSE,BLOOD- poct (STL) 154 mg/dL H -Aug 17, 2024 04:24 PM [facility] GLUCOSE,BLOOD-poct (STL) Specimen Type: BLOOD Comment: Test Performed by: [id number] Meter #: [id number] Ordering Provider: SIMEON REDDY Report Released Date/Time: Aug 17, 2024 04:35 PM Reporting Lab: [facility] #1 [facility] [address] Performing Lab: [facility] #1 [facility] [address] GLUCOSE,BLOOD- poct (STL) 178 mg/dL H 72-99 Aug 17, 2024 05:09 AM [facility] GLUCOSE,BLOOD-poct (STL) Specimen Type: BLOOD Comment: Test Performed by: [id number] Meter #: [id number] Ordering Provider: SIMEON REDDY Report Released Date/Time: Aug 17, 2024 05:54 AM Reporting Lab: [facility] [address] Performing Lab: [facility] #1 [place] [address] GLUCOSE,BLOOD- poct (STL) 124 mg/dL H 72-99 Aug 16, 2024 07:40 PM [facility] GLUCOSE,BLOOD-poct (STL) Specimen Type: BLOOD Comment: Test Performed by: [id number] Meter #: [id number] Ordering Provider: SIMEON REDDY Report Released Date/Time: Aug 16, 2024 08:28 PM Reporting Lab: [facility] [address] Performing Lab: [facility] #1 [place] [phone] GLUCOSE,BLOOD- poct (STL) 144 mg/dL H 72-99 Aug 16, 2024 04:19 PM [facility] GLUCOSE,BLOOD-poct (STL) Specimen Type: BLOOD Comment: Test Performed by: [id number] Meter #: [id number] Ordering Provider: SIMEON REDDY Report Released Date/Time: Aug 16, 2024 04:45 PM Reporting Lab: [facility]1 [place] [address] Performing Lab: [facility] [address] GLUCOSE,BLOOD- poct (STL) 138 mg/dL H Aug 16, 2024 11:52 AM [facility] GLUCOSE,BLOOD-poct (STL) Specimen Type: BLOOD Comment: Test Performed by: [id number] Meter #: [id number] Ordering Provider: SIMEON REDDY Report Released Date/Time: Aug 16, 2024 12:04 PM Reporting Lab: [facility] [address] Performing Lab: [facility] #1 [facility] [address] GLUCOSE,BLOOD- poct (STL) 135 mg/dL H Aug 16, 2024 05:24 AM [facility] GLUCOSE,BLOOD-poct (STL) Specimen Type: BLOOD Comment: Test Performed by: [id number] Meter #: [id number] Ordering Provider: SIMEON REDDY Report Released Date/Time: Aug 16, 2024 05:38 AM Reporting Lab: [facility] [address] Performing Lab: [facility] #1 [facility] [address] GLUCOSE,BLOOD- poct (STL) 151 mg/dL H Aug 15, 2024 07:31 PM [facility] GLUCOSE,BLOOD-poct (STL) Specimen Type: BLOOD Comment: Test Performed by: [id number] Meter #: [id number] Ordering Provider: SIMEON REDDY Report Released Date/Time: Aug 15, 2024 08:07 PM Reporting Lab: [facility] [address] Performing Lab: [facility] #1 [facility] [address] GLUCOSE,BLOOD- poct (STL) 173 mg/dL H Aug 15, 2024 04:18 PM [facility] GLUCOSE,BLOOD-poct (STL) Specimen Type: BLOOD Comment: Test Performed by: [id number] Meter #: [id number] Ordering Provider: SIMEON REDDY Report Released Date/Time: Aug 15, 2024 04:59 PM Reporting Lab: [facility]1 [facility] [address] Performing Lab: [facility] #1 [facility] [address] GLUCOSE,BLOOD- poct (STL) 136 mg/dL H -Aug 15, 2024 04:16 PM [facility] GLUCOSE,BLOOD-poct (STL) Specimen Type: BLOOD Comment: Test Performed by: [id number] Meter #: [id number] Ordering Provider: SIMEON REDDY Report Released Date/Time: Aug 15, 2024 04:59 PM Reporting Lab: [facility]1 [facility] [address] Performing Lab: [facility] #1 [facility] [address] GLUCOSE,BLOOD- poct (STL) 194 mg/dL H Aug 15, 2024 11:39 AM [facility] GLUCOSE,BLOOD-poct (STL) Specimen Type: BLOOD Comment: Test Performed by: [id number] Meter #: [id number] Ordering Provider: SIMEON REDDY Report Released Date/Time: Aug 15, 2024 12:00 PM Reporting Lab: [facility]1 [facility] [address] Performing Lab: [facility]1 [facility] [address] GLUCOSE,BLOOD- poct (STL) 127 mg/dL H -Aug 15, 2024 05:07 AM [facility] GLUCOSE,BLOOD-poct (STL) Specimen Type: BLOOD Comment: Test Performed by: [id number] Meter #: [id number] Ordering Provider: SIMEON REDDY Report Released Date/Time: Aug 15, 2024 06:14 AM Reporting Lab: [facility] [address] Performing Lab: [facility] #1 [place] [address] GLUCOSE,BLOOD- poct (STL) 151 mg/dL H 72-99 Aug 14, 2024 04:22 PM [facility] GLUCOSE,BLOOD-poct (STL) Specimen Type: BLOOD Comment: Test Performed by: [id number] Meter #: [id number] Ordering Provider: SIMEON REDDY Report Released Date/Time: Aug 14, 2024 04:52 PM Reporting Lab: [facility] [place] [address] Performing Lab: [facility] [place] [address] GLUCOSE,BLOOD- poct (STL) 129 mg/dL H 72-99 Aug 14, 2024 11:21 AM [facility] GLUCOSE,BLOOD-poct (STL) Specimen Type: BLOOD Comment: Test Performed by: [id number] Meter #: [id number] Ordering Provider: SIMEON REDDY Report Released Date/Time: Aug 14, 2024 11:37 AM Reporting Lab: [facility] [id number] Performing Lab: [facility] [place] [address] GLUCOSE,BLOOD- poct (STL) 135 mg/dL H 72-99 Aug 14, 2024 06:59 AM [facility] [...] tube is coated with the M. tuberculosis-spec [facility] antigens designed to elicit responses from TB antigen primed CD4+ helper T-lymphocytes. The TB2 Antigen tube is coated with the M. tuberculosis-spec ifi antigens designed to elicit responses from TB antigen primed CD4+ helper and CD8+ cytotoxic T-lymphocytes. For additional information, please refer to http://education. Tk20/faq/URW545 (This link is being provided for information/ educational purposes only.) Test Performed by [employer], [employer] [facility], [address] [place] [address] Tommie Garcia M.D., Ph.D., Director of Laboratories , [facility] [id number] Ordering Provider: SIMEON REDDY Report Released Date/Time: Aug 11, 2024 03:58 PM Reporting Lab: [facility] [address] [facility] [id number] Performing Lab: [facility] [address] [place] [address] .NIL - QUANTIFERON 0.04 [IU]/mL .MITOGEN-NIL 0.39 [IU]/mL .QUANTIFERON INDETERMINATE NEGATIVE .TB1-NIL <0.00 [IU]/mL .TB2-NIL <0.00 [IU]/mL Aug 14, 2024 06:59 AM [facility] MAGNESIUM Specimen Type: PLASMA Comment: No hemolysis noted. Ordering Provider: SIMEON REDDY Report Released Date/Time: Aug 11, 2024 03:58 PM Reporting Lab: [facility] [facility] [address] Performing Lab: [facility] [address] MAGNESIUM 1.9 mg/dL 1.6-2.6 Aug 14, 2024 06:59 AM [facility] B12 Specimen Type: SERUM No comment entered. Ordering Provider: SIMEON REDDY Report Released Date/Time: Aug 11, 2024 03:58 PM Reporting Lab: [facility] [place] [address] Performing Lab: [facility]1 [place] [phone] B12 757 pg/mL 213-816 Aug 14, 2024 06:59 AM [facility] FOLATE ([facility]) Specimen Type: SERUM No comment entered. Ordering Provider: SIMEON REDDY Report Released Date/Time: Aug 11, 2024 03:58 PM Reporting Lab: [facility] [place] [address] Performing Lab: [facility] [place] [address] FOLATE ([facility] 6.8 ng/mL L 7-20 Aug 14, 2024 06:59 AM [facility] VITAMIN D, 25-HYDROXY Specimen Type: SERUM No comment entered. Ordering Provider: SIMEON REDDY Report Released Date/Time: Aug 11, 2024 03:58 PM Reporting Lab: [facility] [place] [address] Performing Lab: [facility] [place] [phone] VITAMIN D, 25-HYDROXY 8.9 ng/mL L 30-96 Aug 14, 2024 06:59 AM [facility] CBC Specimen Type: BLOOD No comment entered. Ordering Provider: SIMEON REDDY Report Released Date/Time: Aug 11, 2024 03:58 PM Reporting Lab: [facility] [place] [address] Performing Lab: [facility] [place] [address] WBC 4.1 10*3/uL 3.6-11.2 RBC 3.20 10*6/uL [...] 10*3/uL 0.00-0.20 Aug 14, 2024 06:59 AM [facility] COMPREHENSIVE METABOLIC PANEL Specimen Type: PLASMA Comment: No hemolysis noted. Ordering Provider: SIMEON REDDY Report Released Date/Time: Aug 11, 2024 03:58 PM Reporting Lab: [facility] [address] Performing Lab: [facility] [address] CREATININE 0.75 mg/dL 0.70-1.30 UREA NITROGEN 13.6 [...] 95.88 >60 Aug 14, 2024 05:08 AM [facility] GLUCOSE,BLOOD-poct (STL) Specimen Type: BLOOD Comment: Test Performed by: [id number] Meter #: [id number] Ordering Provider: SIMEON REDDY Report Released Date/Time: Aug 14, 2024 05:52 AM Reporting Lab: [facility] [address] Performing Lab: [facility]1 [facility] [address] GLUCOSE,BLOOD- poct (STL) 135 mg/dL H 72-Aug 13, 2024 04:27 PM [facility] GLUCOSE,BLOOD-poct (STL) Specimen Type: BLOOD Comment: Test Performed by: [id number] Meter #: [id number] Ordering Provider: SIMEON REDDY Report Released Date/Time: Aug 13, 2024 04:41 PM Reporting Lab: [facility] [address] Performing Lab: [facility] [address] GLUCOSE,BLOOD- poct (STL) 181 mg/dL H 72-Aug 13, 2024 11:33 AM [facility] GLUCOSE,BLOOD-poct (STL) Specimen Type: BLOOD Comment: Test Performed by: [id number] Meter #: [id number] Ordering Provider: SIMEON REDDY Report Released Date/Time: Aug 13, 2024 03:55 PM Reporting Lab: [facility] [address] Performing Lab: [facility] [address] GLUCOSE,BLOOD- poct (STL) 140 mg/dL H 72-99 Aug 13, 2024 05:54 AM [facility] GLUCOSE,BLOOD-poct (STL) Specimen Type: BLOOD Comment: Test Performed by: [id number] Meter #: [id number] Ordering Provider: SIMEON REDDY Report Released Date/Time: Aug 13, 2024 06:20 AM Reporting Lab: [facility]1 [place] [address] Performing Lab: [facility] [place] [address] GLUCOSE,BLOOD- poct (STL) 112 mg/dL H 72-99 Aug 12, 2024 04:35 PM [facility] GLUCOSE,BLOOD-poct (STL) Specimen Type: BLOOD Comment: Test Performed by: [id number] Meter #: [id number] Ordering Provider: SIMEON REDDY Report Released Date/Time: Aug 12, 2024 04:47 PM Reporting Lab: [facility] [place] [address] Performing Lab: [facility] [place] [address] GLUCOSE,BLOOD- poct (STL) 128 mg/dL H 72-99 Aug 12, 2024 11:26 AM [facility] GLUCOSE,BLOOD-poct (STL) Specimen Type: BLOOD Comment: Test Performed by: [id number] Meter #: [id number] Ordering Provider: SIMEON REDDY Report Released Date/Time: Aug 12, 2024 11:45 AM Reporting Lab: [facility]1 [place] [address] Performing Lab: [facility]1 [place] [address] GLUCOSE,BLOOD- poct (STL) 188 mg/dL H 72-99 Aug 12, 2024 06:13 AM [facility] GLUCOSE,BLOOD-poct (STL) Specimen Type: BLOOD Comment: Test Performed by: [id number] Meter #: [id number] Ordering Provider: SIMEON REDDY Report Released Date/Time: Aug 12, 2024 06:25 AM Reporting Lab: [facility]1 [facility] [address] Performing Lab: [facility] [address] GLUCOSE,BLOOD- poct (STL) 116 mg/dL H 72-99 Aug 11, 2024 04:10 PM [facility] GLUCOSE,BLOOD-poct (STL) Specimen Type: BLOOD Comment: Test Performed by: [id number] Meter #: [id number] Ordering Provider: SIMEON REDDY Report Released Date/Time: Aug 11, 2024 04:27 PM Reporting Lab: [facility] [address] Performing Lab: [facility]1 [facility] [address] GLUCOSE,BLOOD- poct (STL) 184 mg/dL H 72-99 Aug 11, 2024 01:44 PM [facility] MRSA SURVL NARES DNA Specimen Type: NARES [...] Aug 11, 2024 02:03 PM Reporting Lab: [facility] [address] [facility] [address] Performing Lab: [facility] [address] [place] [phone] MRSA SURVL NARES DNA Negative Negative Jul 20, 2024 11:18 AM [facility] APTT Specimen Type: PLASMA No comment entered. Ordering Provider: MANUEL BAIRD Report Released Date/Time: Jul 19, 2024 04:00 PM Reporting Lab: [facility] [address] [facility] [address] Performing Lab: [facility] [address] [facility] [address] APTT 32.1 s 26.7-39.9 Jul 20, 2024 11:18 AM [facility] PT/INR NEW ([place]) Specimen Type: PLASMA No comment entered. Ordering Provider: MANUEL BAIRD Report Released Date/Time: Jul 19, 2024 04:00 PM Reporting Lab: [facility] [address] [facility] [address] Performing Lab: [facility] [address] [facility] [address] PROTIME 14.4 s H 9.4-12.5 INR VALUE 1.3 {INR} Jul 20, 2024 11:18 AM [facility] CBC Specimen Type: BLOOD No comment entered. Ordering Provider: MANUEL BAIRD Report Released Date/Time: Jul 19, 2024 04:00 PM Reporting Lab: [facility] [address] [facility] [address] Performing Lab: [facility] [address] [facility] [address] WBC 4.7 10*3/uL 3.6-11.2 RBC 4.86 10*6/uL [...] 1.0-7.0 Jul 17, 2024 08:02 AM [facility] BASIC METABOLIC PANEL Specimen Type: PLASMA Comment: No hemolysis noted. Ordering Provider: MARY SERNA Report Released Date/Time: Jun 07, 2024 01:43 PM Reporting Lab: [facility] [address] [facility] [address] Performing Lab: [facility] [address] [facility] [address] CREATININE 0.85 mg/dL 0.7-1.3 UREA NITROGEN 15.2 [...] 08:19 PM 98.1 74 139/77 18 96 [facility] N Aug 11, 2024 08:15 PM 0 [facility] N Aug 11, 2024 02:26 PM 211.1 30 [facility] N Aug 11, 2024 02:22 PM 97.6 124/77 18 [facility] N Advance Directives: All historical and [...] Encounter Note(s) Provider Source Aug 11, 2024 01:40 PM [facility]M [facility]ARE H & P NOTE: LOCAL TITLE: [facility] H&P [facility] STANDARD TITLE: INCLUSION [facility] CARE H & P NOTE DATE OF NOTE: AUG 11, 2024@13:40 ENTRY DATE: AUG 11, 2024@13:40:56 AUTHOR: JUDIT PERKINS EXP COSIGNER: URGENCY: STATUS: COMPLETED [facility] H&P: Chief Complaint: Generalized weakness Estimated Length of Stay: 2 weeks History of Presenting Illness: 74 y.o. yo male w/ PMHx of HTN, HLD, CAD, moderate MR, 2nd degree av block, asthma, JACQUELINE, pHTN, hepatic steatosis, GERD, hiatal hernia, DM Type II (Hgb A1c7.5), hx of pituitary adenoma, and obesity. Patient had worse shortness of breath, cardiac cath on 06/19 showed multivessel disease (LAD, proximal LCX, OM, and subtotal occlusion of RCA), transferred to [facility] and underwent CABG x3 on07/24. Has known [...] referred for further PT and OT at [facility]. Interval history Patient is seen post transfer [...] Past Medical/Surgical History: -1) Asthma (SNOMED CT 034968895) 2) Gastro-esophageal reflux disease (SNOMED CT 595197408) 3) Peptic Ulcer Disease * (ICD-9-CM 533.90) 4) Hypertension (SNOMED CT 78202968) 5) Neoplasm of pituitary gland (SNOMED CT 322760528) 6) Hyperlipidemia (SNOMED CT 80852705) 7) Erectile dysfunction associated with type 2 [...] 20) History of coronary artery bypass grafting Medications: Active Outpatient Medications (including Supplies): Issue Date Status Last Fill Active Outpatient Medications Refills Expiration ======= 1) ACCU-CHEK GUIDE (GLUCOSE) TEST STRIP HOLD Issu:04-07-24 Qty: 100 for 50 days Sig: [...] SORE SKIN. 4) ATORVASTATIN CALCIUM 40MG TAB Qty: 135 ACTIVE Issu:06-07-24 for 90 days Sig: TAKE ONE AND Refills: 3 Last:06-12-24 ONE-HALF TABLETS BY MOUTH EVERY Expr:06-08-25 EVENING 5) BUMETANIDE 1MG TAB Qty: 45 for 90 days ACTIVE Issu:06-07-24 Sig: TAKE ONE-HALF TABLET BY MOUTH Refills: 2 Last:06-08-24 ONCE A DAY NEEDED PER PROVIDER Expr:06-08-25 INSTRUCTIONS 6) CARBOXYMETHYLCELLULOSE NA 0.5% OPH SOLN ACTIVE Issu:05-12-24 Qty: 30 for 60 days Sig: INSTILL 1 Refills: 5 Last:05-13-24 DROP IN BOTH EYES FOUR TIMES A DAY Expr:05-13-25 NEEDED FOR DRY EYE(S) 7) CARVEDILOL 6.25MG TAB Qty: 90 for 90 ACTIVE Issu:06-07-24 days Sig: TAKE ONE-HALF TABLET BY Refills: 3 Last:06-08-24 MOUTH TWICE A DAY HEART FAILURE TAKE Expr:06-08-25 WITH FOOD. 8) DEXTROSE 24GM/31GM SQUEEZE TUBE Qty: 3 ACTIVE Issu:01-24-24 for 30 days Sig: TAKE 1 TUBE BY MOUTH Refills: 5 Last:01-25-24 NEEDED FOR LOW BLOOD SUGAR REPEAT Expr:01-24-25 DOSE IF HYPOGLYCEMIA CONTINUES 15 MINUTES AFTER THE FIRST DOSE. 9) DULOXETINE HCL 60MG EC CAP Qty: 90 for ACTIVE Issu:04-07-24 90 days Sig: TAKE ONE CAPSULE BY Refills: 3 Last:04-22-24 MOUTH ONCE A DAY FOR NERVE PAIN DO NOT Expr:04-08-25 ABRUPTLY DISCONTINUE MEDICATION. 10) GLUCOSE SENSOR FREESTYLE RADHIKA 3 PLUS ACTIVE Issu:05-15-24 Qty: 2 for 30 days Sig: USE SENSOR Refills: 9 Last:07-11-24 EVERY 15 DAYS FOR BLOOD SUGAR Expr:05-16-25 MONITORING CHANGE SENSOR/SITE EVERY 15 DAYS. TO REPLACE SENSOR FOR ANY REASON OR FOR TECHNICAL HELP PLEASE CALL [facility]! DESK: -SPECIFIC PHONE NUMBER: ([phone]). 11) INSULIN,ASPART(EQV-NOVLG)100UN/ML FLXPEN ACTIVE Issu:02-17-24 Qty: 5 for 90 days Sig: INJECT 6 Refills: 1 Last:02-21-24 UNITS UNDER THE SKIN BEFORE SUPPER FOR Expr:02-17-25 DIABETES ADMINISTER 10 MINUTES BEFORE FOOD DIRECTED. REFRIGERATE UN-OPENED PENS. DISCARD CARTRIDGE 28 DAYS AFTER OPENING. 12) INSULIN,GLARG(TOUJEO MAX) 300 UNT/ML 3ML ACTIVE Issu:11-18-23 Qty: 8 for 76 days Sig: INJECT 90 Refills: 2 Last:06-28-24 UNITS UNDER THE SKIN ONCE A DAY FOR Expr:11-18-24 DIABETES ADMINISTER AT SAME TIME EACH DAY DIRECTED. DISCARD ANY OPEN CARTRIDGE AFTER 42 DAYS. *HIGH DOSE INSULIN* 13) MELOXICAM 7.5MG TAB Qty: 90 for 90 days ACTIVE Issu:02-02-24 Sig: TAKE ONE TABLET BY MOUTH ONCE A Refills: 1 Last:02-04-24 DAY NEEDED FOR OSTEOARTHRITIS Expr:02-02-25 14) METFORMIN HCL 500MG 24HR SA TAB Qty: ACTIVE Issu:02-02-24 360 for 90 days Sig: TAKE TWO TABLETS Refills: 1 Last:02-04-24 BY MOUTH TWICE A DAY FOR BLOOD SUGAR Expr:02-02-25 CONTROL. TAKE WITH FOOD. AVOID ALCOHOL. DISCONTINUE BEFORE GETTING XRAY DYE. 15) METHOCARBAMOL 500MG TAB Qty: 120 for 60 ACTIVE Issu:09-09-23 days Sig: TAKE 1 TABLET BY MOUTH Refills: 2 Last:09-09-23 TWICE DAILY NEEDED FOR MUSCLE SPASM Expr:09-09-24 16) MULTIVITAMIN CAP/TAB Qty: 100 for 90 ACTIVE Issu:11-18-23 days Sig: TAKE 1 TABLET BY MOUTH ONCE Refills: 1 Last:11-19-23 A DAY FOR NUTRITION/DIETARY Expr:11-18-24 SUPPLEMENTATION 17) NEEDLE,PEN 31G,5MM Qty: 200 for 90 days ACTIVE Issu:11-18-23 Sig: USE 1 NEEDLE UNDER THE SKIN TWICE Refills: 1 Last:11-19-23 A DAY FOR LONG ACTING INSULIN AND Expr:11-18-24 MEALTIME INSULIN 18) OMEPRAZOLE 20MG EC CAP Qty: 90 for 90 ACTIVE Issu:01-30-24 days Sig: TAKE ONE CAPSULE BY MOUTH Refills: 1 Last:07-19-24 EVERY MORNING TO LOWER STOMACH ACID. Expr:01-30-25 TAKE 30 MINUTES PRIOR TO FOOD. 19) SACUBITRIL 24MG/VALSARTAN 26MG TAB Qty: ACTIVE Issu:06-07-24 180 for 90 days Sig: TAKE 1 TABLET BY Refills: 3 Last:06-08-24 MOUTH TWICE A DAY FOR HEART FAILURE Expr:06-08-25 20) SEMAGLUTIDE 1MG/0.75ML INJ PEN 3ML Qty: ACTIVE Issu:05-01-24 3 for 84 days Sig: INJECT 1MG UNDER Refills: 1 Last:05-01-24 THE SKIN EVERY WEEK FOR DIABETES Expr:05-02-25 21) TRANSPARENT DRESSING 2 3/8IN X 2 3/4IN ACTIVE Issu:01-24-24 Qty: 100 for 90 days Sig: USE/APPLY Refills: 1 Last:01-25-24 DRESSING(S) TO AFFECTED AREA(S) TWO Expr:01-24-25 TIMES PER WEEK FOR WOUND CARE Start Date Active Non-VA Medications Refills Expiration ======= 1) Non-VA NAPROXEN NA 220MG TAB SiMG ACTIVE BY MOUTH NEEDED 22 Total Medications Outpatient medication list has been compared to the admission order medication list: the following medication(s) were held for the following reason(s): -stopped: lantus, bumex, metformin, meloxicam, Coreg, metformin, Ozempic. -started plavix Family History: [place] Social Situation & Supports: -Patient lives with his son in two-level house, has few steps to enter. He does use cane and walker at home. He has history of smoking, but quit. Smoking History: Patient does not smoke Vaccinations/Immunizations/Tests: PPD: YES Tetanus: YES Influenza: YES Pneumococcus: YES Therapeutic Support Level: Level I: Full CPR Advance Directives: Not present-consult sent to SW: REVIEW OF SYSTEMS PAIN:-Denies any pain including at the area of sternal incision BOWELS:-Regular SLEEP: -No complaints WEIGHT:-Stable ADL Deficiencies: Bathing/Grooming, Dressing, Transferring, Ambulation IADL Deficiencies: Shopping, Light housekeeping, Laundry, Meal preparation General: awake and alert, cooperative on room air HEENT: atraumatic, PERRL, no conjunctival erythema, no drainage, adentulous Respiratory: unlabored, even respiratory effort, clear to auscultation, no wheezing or rales CV: S1S2 regular, no m/r/g, no peripheral edema GI: BS present, soft , NT, ND, healed scar below umbilicus MSK: no major joint erythema, swelling or warmth : Deferred SKIN: Midsternal wound is well-approximated without dehiscence, erythema or drainage, left subclavian area with pacemaker, no inflammation, nontender. Epigastric area with healing chest tube wounds. Neuro: Strength is symmetric with generalized weakness, nonfocal. Alert and oriented. Psychiatric:no depression, anxiety or confusion Drug Sensitivity or Allergies: TRAMADOL Diagnosis: General weakness Rehab Potential: Fair Assessment and Plan: Assessment: #CAD, s/p CABGx3, started on Plavix and continued on aspirin, statin, but Coreg held due to hypotension. Patient now has pacemaker for complete heart block. Follow-up with CT surgery in 4 weeks. 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 Coreg, Imdur, Entresto held due to relative hypotension. Also home regimen of Bumex is stopped and patient does not have any lower extremity edema. #DM2, A1c reported 7.5%. Patient has been on high-dose of Lantus at home, metformin, Ozempic. He did report weight loss with Ozempic initially. Due to hypoglycemia, insulin and metformin, Ozempic discontinued. He is on sliding scale only. # Complete heart block, pacemaker placed. # Diabetic neuropathy, painful. On Lyrica and duloxetine. # Anemia post procedurally, recent hemoglobin 8.3. Continue monitoring. #HTN-relative hypotension at the hospital, will monitor off Coreg, Imdur, Entresto. # Knee osteoarthritis, patient does not report knee pain. # Obstructive sleep apnea, has home CPAP unit. # Diet: Soft, diabetic, low-sodium. #Generalized weakness: consult PT/OT for strength and mobilization of the Arnold. Previously ambulated with a walker or cane, lives in a house with plan to return on home with son. # Other issues: History of pituitary adenoma, obesity, hepatic steatosis. Previously on Ozempic, will monitor his appetite and glucose in order to restart or not. History of kidney injury in childhood, patient does not recall exactly details. PAIN: -Currently no complaints of pain, can use Tylenol as needed. BOWELS: -Monitor bowel regimen. SLEEP: -No complaints WEIGHT: -Weekly weight All medications including Non-VA and Nlgx-Dtw-Aqknpsj were reconciled today CLINICAL REMINDERS DUE: YES If YES, complete reminders due below. Suicide Screen: C-SSRS Screening [place]-Suicide Severity Rating Scale (C-SSRS Screener) 1. Over the past month, have you [...] required due to responses to other questions. /shen/ JUDIT PERKINS PHYSICIAN CLC Signed: 08/11/2024 15:51 Receipt Acknowledged By: 08/11/2024 16:32 /shen/ Simeon Reddy APN,PERCOLATOR OPERATOR- Advanced Practice Nurse JUDIT PERKINS [facility]
--- OUTSIDE RECORDS SUMMARY | 2024-11-17 04:00 | XMS_ITS ---
[place] DAILY HOSPITALIZATION DATA [facility] Encounter Summary Created on: November 16, 2024 CHET WALKER : 1950 Sex: Male Author Name [facility] [place] Organization [facility] [place] Address [address] [place] [address] Care Team Providers Care Senior Enlisted Advisor Name Role Phone MANUEL BAIRD Primary Care [...] PART A Apr 08, 2017 PART A [id number] [phone] ASHLEY WALKER PATIENT Selected Encounter This section includes the information on record at [place] for the Encounter. Date/Time Encounter Type Encounter Description Reason Pro vider Source Aug 11, 2024 03:17 PM Inpatient Visit DAILY HOSPITALIZATION DATA [facility] Encounter Template Text not used by [place] Plan of Treatment: Future Appointments (+ 6 [...] 20 appointments. The data comes from all [facility]. Appointment Date/Time Appointment Type Appointme nt Facility Name Aug 24, 2024 10:00 AM AMBULATORY - MEDICINE [facility] Aug 24, 2024 10:30 AM AMBULATORY - MEDICINE [facility] Aug 30, 2024 09:30 AM AMBULATORY MEDICINE [facility] Aug 31, 2024 01:00 PM AMBULATORY - SURGERY [facility] Sep 21, 2024 01:30 PM AMBULATORY - MEDICINE [facility] Sep 22, 2024 11:00 AM AMBULATORY - MEDICINE [facility] Sep 29, 2024 12:30 PM AMBULATORY - MEDICINE [facility] Oct 02, 2024 09:30 AM AMBULATORY - MEDICINE [facility] Nov 20, 2024 10:30 AM AMBULATORY - SURGERY [facility] Nov 21, 2024 10:00 AM AMBULATORY - NONE [facility] Dec 11, 2024 10:30 AM AMBULATORY - MEDICINE [facility] Active, Pending, and Scheduled Orders This section includes a listing of several types of active, pending, and scheduled orders, including clinic medications orders, diagnostic test orders, procedure orders and consult orders; where the start date of the order is 45 days before the date of the Encounter or 45 days after the date of theEncounter. The data comes from all [facility]. Test Date/Time Test Type Test Details Facility Name Aug 02, 2024 12:00 AM Laboratory - Chemistry Order CBC BLOOD STAT SP [facility] Aug 02, 2024 12:00 AM Laboratory - Chemistry Order COMPREHENSIVE METABOLIC PANEL GREEN LI/HEP BLD/PLAS PLASMA SP [facility] Aug 17, 2024 03:47 PM Consult Order [facility] [place] [place] [facility] Cons Bedside [facility] Lab Results: +/- 30 days of the [...] Range Comment Aug 23, 2024 08:21 AM [facility] MAGNESIUM Specimen Type: PLASMA No comment entered. Ordering Provider: SILVIA REDDY Report Released Date/Time: Aug 22, 2024 11:26 AM Reporting Lab: [facility] [address] Performing Lab: [facility] [address] MAGNESIUM 1.8 mg/dL 1.6-2.6 Aug 23, 2024 08:21 AM [facility] CBC Specimen Type: BLOOD No comment entered. Ordering Provider: SILVIA REDDY Report Released Date/Time: Aug 22, 2024 11:19 AM Reporting Lab: [facility] [address] Performing Lab: [facility] [address] WBC 4.0 10*3/uL 3.6-11.2 RBC 3.65 10*6/uL [...] 10*3/uL 0.00-0.20 Aug 23, 2024 05:12 AM [facility] GLUCOSE,BLOOD-poct (STL) Specimen Type: BLOOD Comment: Test Performed by: [id number] Meter #: [id number] Ordering Provider: SILVIA REDDY Report Released Date/Time: Aug 23, 2024 05:23 AM Reporting Lab: [facility] [address] Performing Lab: [facility] [address] GLUCOSE,BLOOD- poct (STL) 99 mg/dL 72-99 Aug 23, 2024 02:45 AM [facility] OCCULT BLOOD FIT X1 SCREEN Specimen Type: FECES No comment entered. Ordering Provider: SLIVIA REDDY Report Released Date/Time: Aug 22, 2024 11:23 AM Reporting Lab: [address] [address] Performing Lab: [address] [address] OCCULT BLOOD (FIT) #1 OF 1 Negative Negative Aug 22, 2024 07:30 PM [facility] OCCULT BLOOD FIT X1 SCREEN Specimen Type: FECES No comment entered. Ordering Provider: SILVIA REDDY Report Released Date/Time: Aug 22, 2024 11:23 AM Reporting Lab: [address] [address] Performing Lab: [address] [address] OCCULT BLOOD (FIT) #1 OF 1 Negative Negative Aug 22, 2024 06:15 PM [facility] OCCULT BLOOD FIT X1 SCREEN Specimen Type: FECES No comment entered. Ordering Provider: SILVIA REDDY Report Released Date/Time: Aug 22, 2024 11:23 AM Reporting Lab: [address] [address] Performing Lab: [facility] [address] [facility] [address] OCCULT BLOOD (FIT) #1 OF 1 Negative Negative Aug 22, 2024 04:24 PM [facility] GLUCOSE,BLOOD-poct (STL) Specimen Type: BLOOD Comment: Test Performed by: [id number] Meter #: [id number] Ordering Provider: SILVIA REDDY Report Released Date/Time: Aug 22, 2024 04:36 PM Reporting Lab: [facility] [address] Performing Lab: [facility] [facility] [address] GLUCOSE,BLOOD- poct (STL) 176 mg/dL H -Aug 22, 2024 04:23 PM [facility] GLUCOSE,BLOOD-poct (STL) Specimen Type: BLOOD Comment: Test Performed by: [id number] Meter #: [id number] Ordering Provider: SILVIA REDDY Report Released Date/Time: Aug 22, 2024 04:36 PM Reporting Lab: [facility] [address] Performing Lab: [facility] [address] GLUCOSE,BLOOD- poct (STL) 221 mg/dL H 72-Aug 22, 2024 11:15 AM [facility] GLUCOSE,BLOOD-poct (STL) Specimen Type: BLOOD Comment: Test Performed by: [id number] Meter #: [id number] Ordering Provider: SILVIA REDDY Report Released Date/Time: Aug 22, 2024 11:27 AM Reporting Lab: [facility] [address] Performing Lab: [facility] [address] GLUCOSE,BLOOD- poct (STL) 140 mg/dL H 72-Aug 22, 2024 08:03 AM [facility] FERRITIN Specimen Type: SERUM No comment entered. Ordering Provider: JUDIT PERKINS Report Released Date/Time: Aug 18, 2024 11:01 AM Reporting Lab: [facility] [address] [facility] [address] Performing Lab: [facility] [address] [facility] [address] FERRITIN 79.50 ng/mL 22-275 Aug 22, 2024 08:03 AM [facility] IRON/TIBC PROFILE Specimen Type: SERUM No comment entered. Ordering Provider: JUDIT PERKINS Report Released Date/Time: Aug 18, 2024 11:01 AM Reporting Lab: [address] [address] Performing Lab: [address] [address] TIBC 283 ug/dL 250-450 TRANSFERRIN 226 mg/dL 163-344 IRON SATURATION 7 L 20-50 IRON 19 ug/dL L 65-175 Aug 22, 2024 08:03 AM [facility] B12 Specimen Type: SERUM No comment entered. Ordering Provider: JUDIT PERKINS Report Released Date/Time: Aug 18, 2024 11:01 AM Reporting Lab: [facility] [address] Performing Lab: [facility] [facility] [address] B12 631 pg/mL 213-816 Aug 22, 2024 08:03 AM [facility] COMPREHENSIVE METABOLIC PANEL Specimen Type: PLASMA Comment: No hemolysis noted. Ordering Provider: SILVIA REDDY Report Released Date/Time: Aug 17, 2024 01:18 PM Reporting Lab: [facility] [address] [facility] [address] Performing Lab: [address] [address] CREATININE 0.80 mg/dL 0.7-1.3 UREA NITROGEN 9.7 [...] 94.0 >60 Aug 22, 2024 08:03 AM [facility] CBC Specimen Type: BLOOD No comment entered. Ordering Provider: SILVIA REDDY Report Released Date/Time: Aug 17, 2024 01:18 PM Reporting Lab: [facility] [address] Performing Lab: [facility] [address] WBC 3.5 10*3/uL L 3.6-11.2 RBC 3.23 [...] NRBC% 0 Aug 22, 2024 05:03 AM [facility] GLUCOSE,BLOOD-poct (STL) Specimen Type: BLOOD Comment: Test Performed by: [id number] Meter #: [id number] Ordering Provider: SILVIA REDDY Report Released Date/Time: Aug 22, 2024 06:17 AM Reporting Lab: [facility] [facility] [address] Performing Lab: [facility] [address] [facility] [address] GLUCOSE,BLOOD- poct (STL) 170 mg/dL H 72-Aug 21, 2024 04:32 PM [facility] GLUCOSE,BLOOD-poct (STL) Specimen Type: BLOOD Comment: Test Performed by: [id number] Meter #: [id number] Ordering Provider: SILVIA REDDY Report Released Date/Time: Aug 21, 2024 04:49 PM Reporting Lab: [facility] [address] Performing Lab: [facility] [address] [facility] [address] GLUCOSE,BLOOD- poct (STL) 169 mg/dL H -99 Aug 21, 2024 11:53 AM [facility] GLUCOSE,BLOOD-poct (STL) Specimen Type: BLOOD Comment: Test Performed by: [id number] Meter #: [id number] Ordering Provider: SILVIA REDDY Report Released Date/Time: Aug 21, 2024 12:11 PM Reporting Lab: [facility] [facility] [address] Performing Lab: [facility] [address] GLUCOSE,BLOOD- poct (STL) 149 mg/dL H 72-99 Aug 21, 2024 05:10 AM [facility] GLUCOSE,BLOOD-poct (STL) Specimen Type: BLOOD Comment: Test Performed by: [id number] Meter #: [id number] Ordering Provider: SILVIA REDDY Report Released Date/Time: Aug 21, 2024 05:27 AM Reporting Lab: [facility] [place] [address] Performing Lab: [facility] [address] [place] [phone] GLUCOSE,BLOOD- poct (STL) 118 mg/dL H 72-99 Aug 20, 2024 04:38 PM [facility] GLUCOSE,BLOOD-poct (STL) Specimen Type: BLOOD Comment: Test Performed by: [id number] Meter #: [id number] Ordering Provider: SILVIA REDDY Report Released Date/Time: Aug 21, 2024 01:55 AM Reporting Lab: [facility] [address] [place] [address] Performing Lab: [facility] [address] [place] [address] GLUCOSE,BLOOD- poct (STL) 169 mg/dL H 72-Aug 20, 2024 04:36 PM [facility] GLUCOSE,BLOOD-poct (STL) Specimen Type: BLOOD Comment: Test Performed by: [id number] Meter #: [id number] Ordering Provider: SILVIA REDDY Report Released Date/Time: Aug 21, 2024 01:55 AM Reporting Lab: [facility] [place] [address] Performing Lab: [facility] [place] [address] GLUCOSE,BLOOD- poct (STL) 395 mg/dL H 72-99 Aug 20, 2024 11:45 AM [facility] GLUCOSE,BLOOD-poct (STL) Specimen Type: BLOOD Comment: Test Performed by: [id number] Meter #: [id number] Ordering Provider: SILVIA REDDY Report Released Date/Time: Aug 20, 2024 11:56 AM Reporting Lab: [facility] [address] Performing Lab: [facility] [facility] [address] GLUCOSE,BLOOD- poct (STL) 169 mg/dL H 72-Aug 20, 2024 05:06 AM [facility] GLUCOSE,BLOOD-poct (STL) Specimen Type: BLOOD Comment: Test Performed by: [id number] Meter #: [id number] Ordering Provider: SILVIA REDDY Report Released Date/Time: Aug 20, 2024 06:05 AM Reporting Lab: [facility] [facility] [address] Performing Lab: [facility] [facility] [address] GLUCOSE,BLOOD- poct (STL) 115 mg/dL H 72-Aug 19, 2024 04:23 PM [facility] GLUCOSE,BLOOD-poct (STL) Specimen Type: BLOOD Comment: Test Performed by: [id number] Meter #: [id number] Ordering Provider: SILVIA REDDY Report Released Date/Time: Aug 19, 2024 05:54 PM Reporting Lab: [facility] [facility] [address] Performing Lab: [facility] [facility] [address] GLUCOSE,BLOOD- poct (STL) 137 mg/dL H 72-99 Aug 19, 2024 11:28 AM [facility] GLUCOSE,BLOOD-poct (STL) Specimen Type: BLOOD Comment: Test Performed by: [id number] Meter #: [id number] Ordering Provider: SILVIA REDDY Report Released Date/Time: Aug 19, 2024 11:51 AM Reporting Lab: [facility] [facility] [address] Performing Lab: [facility] [facility] [address] GLUCOSE,BLOOD- poct (STL) 190 mg/dL H 72-99 Aug 19, 2024 05:21 AM [facility] GLUCOSE,BLOOD-poct (STL) Specimen Type: BLOOD Comment: Test Performed by: [id number] Meter #: [id number] Ordering Provider: SILVIA REDDY Report Released Date/Time: Aug 19, 2024 05:56 AM Reporting Lab: [facility] [facility] [address] Performing Lab: [facility] [facility] [address] GLUCOSE,BLOOD- poct (STL) 130 mg/dL H Aug 18, 2024 04:49 PM [facility] GLUCOSE,BLOOD-poct (STL) Specimen Type: BLOOD Comment: Test Performed by: [id number] Meter #: [id number] Ordering Provider: SILVIA REDDY Report Released Date/Time: Aug 18, 2024 05:01 PM Reporting Lab: [facility] [address] Performing Lab: [facility] [facility] [address] GLUCOSE,BLOOD- poct (STL) 129 mg/dL H Aug 18, 2024 11:23 AM [facility] GLUCOSE,BLOOD-poct (STL) Specimen Type: BLOOD Comment: Test Performed by: [id number] Meter #: [id number] Ordering Provider: SILVIA REDDY Report Released Date/Time: Aug 18, 2024 11:41 AM Reporting Lab: [facility] [address] Performing Lab: [facility] [facility] [address] GLUCOSE,BLOOD- poct (STL) 180 mg/dL H Aug 18, 2024 05:08 AM [facility] GLUCOSE,BLOOD-poct (STL) Specimen Type: BLOOD Comment: Test Performed by: [id number] Meter #: [id number] Ordering Provider: SILVIA REDDY Report Released Date/Time: Aug 18, 2024 05:31 AM Reporting Lab: [facility] [place] [address] Performing Lab: [facility] [facility] [address] GLUCOSE,BLOOD- poct (STL) 127 mg/dL H -Aug 17, 2024 07:32 PM [facility] GLUCOSE,BLOOD-poct (STL) Specimen Type: BLOOD Comment: Test Performed by: [id number] Meter #: [id number] Ordering Provider: SILVIA REDDY Report Released Date/Time: Aug 17, 2024 07:59 PM Reporting Lab: [facility] [place] [address] Performing Lab: [facility] [place] [address] GLUCOSE,BLOOD- poct (STL) 154 mg/dL H -Aug 17, 2024 04:24 PM [facility] GLUCOSE,BLOOD-poct (STL) Specimen Type: BLOOD Comment: Test Performed by: [id number] Meter #: [id number] Ordering Provider: SILVIA REDDY Report Released Date/Time: Aug 17, 2024 04:35 PM Reporting Lab: [facility] [place] [address] Performing Lab: [facility] [place] [address] GLUCOSE,BLOOD- poct (STL) 178 mg/dL H -Aug 17, 2024 05:09 AM [facility] GLUCOSE,BLOOD-poct (STL) Specimen Type: BLOOD Comment: Test Performed by: [id number] Meter #: [id number] Ordering Provider: SILVIA REDDY Report Released Date/Time: Aug 17, 2024 05:54 AM Reporting Lab: [facility] [address] Performing Lab: [facility] [address] GLUCOSE,BLOOD- poct (STL) 124 mg/dL H 72-Aug 16, 2024 07:40 PM [facility] GLUCOSE,BLOOD-poct (STL) Specimen Type: BLOOD Comment: Test Performed by: [id number] Meter #: [id number] Ordering Provider: SILVIA REDDY Report Released Date/Time: Aug 16, 2024 08:28 PM Reporting Lab: [facility] [address] Performing Lab: [facility] [facility] [address] GLUCOSE,BLOOD- poct (STL) 144 mg/dL H -Aug 16, 2024 04:19 PM [facility] GLUCOSE,BLOOD-poct (STL) Specimen Type: BLOOD Comment: Test Performed by: [id number] Meter #: [id number] Ordering Provider: SILVIA REDDY Report Released Date/Time: Aug 16, 2024 04:45 PM Reporting Lab: [facility] [address] Performing Lab: [facility] [address] GLUCOSE,BLOOD- poct (STL) 138 mg/dL H 72-Aug 16, 2024 11:52 AM [facility] GLUCOSE,BLOOD-poct (STL) Specimen Type: BLOOD Comment: Test Performed by: [id number] Meter #: [id number] Ordering Provider: SILVIA REDDY Report Released Date/Time: Aug 16, 2024 12:04 PM Reporting Lab: [facility] [address] Performing Lab: [facility] [address] GLUCOSE,BLOOD- poct (STL) 135 mg/dL H 72-99 Aug 16, 2024 05:24 AM [facility] GLUCOSE,BLOOD-poct (STL) Specimen Type: BLOOD Comment: Test Performed by: [id number] Meter #: [id number] Ordering Provider: SILVIA REDDY Report Released Date/Time: Aug 16, 2024 05:38 AM Reporting Lab: [facility] [address] Performing Lab: [facility] [address] GLUCOSE,BLOOD- poct (STL) 151 mg/dL H Aug 15, 2024 07:31 PM [facility] GLUCOSE,BLOOD-poct (STL) Specimen Type: BLOOD Comment: Test Performed by: [id number] Meter #: [id number] Ordering Provider: SILVIA REDDY Report Released Date/Time: Aug 15, 2024 08:07 PM Reporting Lab: [facility] [address] Performing Lab: [facility] [address] GLUCOSE,BLOOD- poct (STL) 173 mg/dL H Aug 15, 2024 04:18 PM [facility] GLUCOSE,BLOOD-poct (STL) Specimen Type: BLOOD Comment: Test Performed by: [id number] Meter #: [id number] Ordering Provider: SILVIA REDDY Report Released Date/Time: Aug 15, 2024 04:59 PM Reporting Lab: [facility] [address] Performing Lab: [facility] [address] GLUCOSE,BLOOD- poct (STL) 136 mg/dL H Aug 15, 2024 04:16 PM [facility] GLUCOSE,BLOOD-poct (STL) Specimen Type: BLOOD Comment: Test Performed by: [id number] Meter #: [id number] Ordering Provider: SILVIA REDDY Report Released Date/Time: Aug 15, 2024 04:59 PM Reporting Lab: [facility] [place] [address] Performing Lab: [facility] [address] GLUCOSE,BLOOD- poct (STL) 194 mg/dL H 72-Aug 15, 2024 11:39 AM [facility] GLUCOSE,BLOOD-poct (STL) Specimen Type: BLOOD Comment: Test Performed by: [id number] Meter #: [id number] Ordering Provider: SILVIA REDDY Report Released Date/Time: Aug 15, 2024 12:00 PM Reporting Lab: [facility] [place] [address] Performing Lab: [facility] [place] [address] GLUCOSE,BLOOD- poct (STL) 127 mg/dL H -Aug 15, 2024 05:07 AM [facility] GLUCOSE,BLOOD-poct (STL) Specimen Type: BLOOD Comment: Test Performed by: [id number] Meter #: [id number] Ordering Provider: SILVIA REDDY Report Released Date/Time: Aug 15, 2024 06:14 AM Reporting Lab: [facility] [place] [address] Performing Lab: [facility] [place] [address] GLUCOSE,BLOOD- poct (STL) 151 mg/dL H -Aug 14, 2024 04:22 PM [facility] GLUCOSE,BLOOD-poct (STL) Specimen Type: BLOOD Comment: Test Performed by: [id number] Meter #: [id number] Ordering Provider: SILVIA REDDY Report Released Date/Time: Aug 14, 2024 04:52 PM Reporting Lab: [facility] [address] Performing Lab: [facility] [address] GLUCOSE,BLOOD- poct (STL) 129 mg/dL H 72-99 Aug 14, 2024 11:21 AM [facility] GLUCOSE,BLOOD-poct (STL) Specimen Type: BLOOD Comment: Test Performed by: [id number] Meter #: [id number] Ordering Provider: SILVIA REDDY Report Released Date/Time: Aug 14, 2024 11:37 AM Reporting Lab: [facility] [address] Performing Lab: [facility] [address] GLUCOSE,BLOOD- poct (STL) 135 mg/dL H 72-Aug 14, 2024 06:59 AM [facility] QUANTIFERON-TB,4 TUBE Specimen Type: BLOOD Comment: [...] For additional information, please refer to http://education. Socialtext/faq/ZKF138 (This link is being provided for information/ educational purposes only.) Test Performed by [employer], [employer] [facility], [address] [place] [address] Tommie Garcia M.D., Ph.D., Director of Laboratories , [facility] [id number] Ordering Provider: SILVIA REDDY Report Released Date/Time: Aug 11, 2024 03:58 PM Reporting Lab: [facility] [address] [facility] [address] Performing Lab: [facility] [id number] [place] [address] .NIL - QUANTIFERON 0.04 [IU]/mL .MITOGEN-NIL 0.39 [IU]/mL .QUANTIFERON INDETERMINATE NEGATIVE .TB1-NIL <0.00 [IU]/mL .TB2-NIL <0.00 [IU]/mL Aug 14, 2024 06:59 AM [facility] MAGNESIUM Specimen Type: PLASMA Comment: No hemolysis noted. Ordering Provider: SILVIA REDDY Report Released Date/Time: Aug 11, 2024 03:58 PM Reporting Lab: [facility] [address] [place] [id number] Performing Lab: [facility] [facility] [address] MAGNESIUM 1.9 mg/dL 1.6-2.6 Aug 14, 2024 06:59 AM [facility] B12 Specimen Type: SERUM No comment entered. Ordering Provider: SILVIA REDDY Report Released Date/Time: Aug 11, 2024 03:58 PM Reporting Lab: [facility] [facility] [address] Performing Lab: [facility] [facility] [id number] B12 757 pg/mL 213-816 Aug 14, 2024 06:59 AM [facility] FOLATE ([facility]) Specimen Type: SERUM No comment entered. Ordering Provider: SILVIA REDDY Report Released Date/Time: Aug 11, 2024 03:58 PM Reporting Lab: [facility] [facility] [phone] Performing Lab: [facility] [facility] [phone] FOLATE ([facility]-[place]) 6.8 ng/mL L 7-20 Aug 14, 2024 06:59 AM [facility] VITAMIN D, 25-HYDROXY Specimen Type: SERUM No comment entered. Ordering Provider: SILVIA REDDY Report Released Date/Time: Aug 11, 2024 03:58 PM Reporting Lab: [facility] [facility] [address] Performing Lab: [facility] [facility] [address] VITAMIN D, 25-HYDROXY 8.9 ng/mL L 30-96 Aug 14, 2024 06:59 AM [facility] COMPREHENSIVE METABOLIC PANEL Specimen Type: PLASMA Comment: No hemolysis noted. Ordering Provider: SILVIA REDDY Report Released Date/Time: Aug 11, 2024 03:58 PM Reporting Lab: [facility] [address] Performing Lab: [facility] [address] CREATININE 0.75 mg/dL 0.70-1.30 UREA NITROGEN 13.6 [...] 95.88 >60 Aug 14, 2024 06:59 AM [facility] CBC Specimen Type: BLOOD No comment entered. Ordering Provider: SILVIA REDDY Report Released Date/Time: Aug 11, 2024 03:58 PM Reporting Lab: [facility] [address] Performing Lab: [facility] [address] WBC 4.1 10*3/uL 3.6-11.2 RBC 3.20 10*6/uL [...] 10*3/uL 0.00-0.20 Aug 14, 2024 05:08 AM [facility] GLUCOSE,BLOOD-poct (STL) Specimen Type: BLOOD Comment: Test Performed by: [id number] Meter #: [id number] Ordering Provider: SILVIA REDDY Report Released Date/Time: Aug 14, 2024 05:52 AM Reporting Lab: [facility] [address] Performing Lab: [facility] [address] GLUCOSE,BLOOD- poct (STL) 135 mg/dL H 72-99 Aug 13, 2024 04:27 PM [facility] GLUCOSE,BLOOD-poct (STL) Specimen Type: BLOOD Comment: Test Performed by: [id number] Meter #: [id number] Ordering Provider: SILVIA REDDY Report Released Date/Time: Aug 13, 2024 04:41 PM Reporting Lab: [facility] [address] Performing Lab: [facility] [address] GLUCOSE,BLOOD- poct (STL) 181 mg/dL H -Aug 13, 2024 11:33 AM [facility] GLUCOSE,BLOOD-poct (STL) Specimen Type: BLOOD Comment: Test Performed by: [id number] Meter #: [id number] Ordering Provider: SILVIA REDDY Report Released Date/Time: Aug 13, 2024 03:55 PM Reporting Lab: [facility] [address] Performing Lab: [facility] [place] [address] GLUCOSE,BLOOD- poct (STL) 140 mg/dL H Aug 13, 2024 05:54 AM [facility] GLUCOSE,BLOOD-poct (STL) Specimen Type: BLOOD Comment: Test Performed by: [id number] Meter #: [id number] Ordering Provider: SILVIA REDDY Report Released Date/Time: Aug 13, 2024 06:20 AM Reporting Lab: [facility] [address] Performing Lab: [facility] [address] GLUCOSE,BLOOD- poct (STL) 112 mg/dL H Aug 12, 2024 04:35 PM [facility] GLUCOSE,BLOOD-poct (STL) Specimen Type: BLOOD Comment: Test Performed by: [id number] Meter #: [id number] Ordering Provider: SILVIA REDDY Report Released Date/Time: Aug 12, 2024 04:47 PM Reporting Lab: [facility] [address] Performing Lab: [facility] [address] GLUCOSE,BLOOD- poct (STL) 128 mg/dL H 72-99 Aug 12, 2024 11:26 AM [facility] GLUCOSE,BLOOD-poct (STL) Specimen Type: BLOOD Comment: Test Performed by: [id number] Meter #: [id number] Ordering Provider: SILVIA REDDY Report Released Date/Time: Aug 12, 2024 11:45 AM Reporting Lab: [facility] [address] Performing Lab: [facility] [place] [address] GLUCOSE,BLOOD- poct (STL) 188 mg/dL H -Aug 12, 2024 06:13 AM [facility] GLUCOSE,BLOOD-poct (STL) Specimen Type: BLOOD Comment: Test Performed by: [id number] Meter #: [id number] Ordering Provider: SILVIA REDDY Report Released Date/Time: Aug 12, 2024 06:25 AM Reporting Lab: [facility] [address] Performing Lab: [facility] [address] GLUCOSE,BLOOD- poct (STL) 116 mg/dL H 72-99 Aug 11, 2024 04:10 PM [facility] GLUCOSE,BLOOD-poct (STL) Specimen Type: BLOOD Comment: Test Performed by: [id number] Meter #: [id number] Ordering Provider: SILVIA REDDY Report Released Date/Time: Aug 11, 2024 04:27 PM Reporting Lab: [facility] [place] [address] Performing Lab: [facility] [address] GLUCOSE,BLOOD- poct (STL) 184 mg/dL H 72-99 Aug 11, 2024 01:44 PM [facility] MRSA SURVL NARES DNA Specimen Type: [...] Aug 11, 2024 02:03 PM Reporting Lab: [address] [address] Performing Lab: [address] [address] MRSA SURVL NARES DNA Negative Negative Jul 20, 2024 11:18 AM [facility] APTT Specimen Type: PLASMA No comment entered. Ordering Provider: MANUEL BAIRD Report Released Date/Time: Jul 19, 2024 04:00 PM Reporting Lab: [address] [address] Performing Lab: [address] [address] APTT 32.1 s 26.7-39.9 Jul 20, 2024 11:18 AM [facility] PT/INR NEW (L-MD) Specimen Type: PLASMA No comment entered. Ordering Provider: MANUEL BAIRD Report Released Date/Time: Jul 19, 2024 04:00 PM Reporting Lab: [address] [address] Performing Lab: [address] [address] PROTIME 14.4 s H 9.4-12.5 INR VALUE 1.3 {INR} Jul 20, 2024 11:18 AM [facility] CBC Specimen Type: BLOOD No comment entered. Ordering Provider: MANUEL BAIRD Report Released Date/Time: Jul 19, 2024 04:00 PM Reporting Lab: [facility] [address] [facility] [address] Performing Lab: [address] [address] WBC 4.7 10*3/uL 3.6-11.2 RBC 4.86 10*6/uL [...] 1.6 1.0-7.0 Jul 17, 2024 08:02 AM [facility] METABOLIC PANEL Specimen Type: PLASMA Comment: No hemolysis noted. Ordering Provider: MARY SERNA Report Released Date/Time: Jun 07, 2024 01:43 PM Reporting Lab: [facility] [address] [place] [address] Performing Lab: [address] [address] CREATININE 0.85 mg/dL 0.7-1.3 UREA NITROGEN 15.2 [...] 08:19 PM 98.1 74 139/77 18 96 [facility] Aug 11, 2024 08:15 PM 0 [facility] Aug 11, 2024 02:26 PM 211.1 30 [facility] Aug 11, 2024 02:22 PM 97.6 124/77 18 [facility] Advance Directives: All historical and [...] 2017 [employer]VANCE DIRECTIVE DISCUSSION ERICK BARDALES [facility]
--- OUTSIDE RECORDS SUMMARY | 2024-11-17 04:00 | XMS_ITS ---
[place] DAILY HOSPITALIZATION DATA [facility] Encounter Summary Created on: November 16, 2024 CHET WALKER : 1950 Sex: Male Author Name [facility] [facility] [place] [facility] [place] Address [address] [place] [address] Care Team Providers Care Rn Baby Name Role Phone MANUEL BAIRD Primary Care [...] PART A Apr 08, 2017 PART A [id number] [phone] ASHLEY WALKER PATIENT Selected Encounter This section includes the information on record at [place] for the Encounter. Date/Time Encounter Type Encounter Description Reason Pro vider Source Aug 11, 2024 11:37 PM Inpatient Visit DAILY HOSPITALIZATION DATA [facility] Encounter Template Text not used by VA [...] appointments. The data comes from all [facility]. Appointment Date/Time Appointment Type Appointme nt Facility Name Aug 24, 2024 10:00 AM AMBULATORY - MEDICINE [facility] Aug 24, 2024 10:30 AM AMBULATORY - MEDICINE [facility] Aug 30, 2024 09:30 AM AMBULATORY MEDICINE [facility] Aug 31, 2024 01:00 PM AMBULATORY - SUR[facility]ERY [facility] Sep 21, 2024 01:30 PM AMBULATORY - MEDICINE [facility] Sep 22, 2024 11:00 AM AMBULATORY - MEDICINE [facility] Sep 29, 2024 12:30 PM AMBULATORY - MEDICINE [facility] Oct 02, 2024 09:30 AM AMBULATORY - MEDICINE [facility] Nov 20, 2024 10:30 AM AM[facility]ULATORY - SUR[facility]ERY [facility] Nov 21, 2024 10:00 AM AMBULATORY - NONE [facility] Dec 11, 2024 10:30 AM AMBULATORY - MEDICINE [facility] Active, Pending, and Scheduled Orders This section includes a listing of several types of active, pending, and scheduled orders, including clinic medications orders, diagnostic test orders, procedure orders and consult orders; where the start date of the order is 45 days before the date of the Encounter or 45 days after the date of theEncounter. The data comes from all [facility]. Test Date/Time Test Type Test Details Facility Name Aug 02, 2024 12:00 AM Laboratory - Chemistry Order CBC BLOOD STAT SP [facility] Aug 02, 2024 12:00 AM Laboratory - Chemistry Order COMPREHENSIVE METABOLIC PANEL GREEN LI/HEP BLD/PLAS PLASMA SP [facility] Aug 17, 2024 03:47 PM Consult Order [facility] Cons Bedside [facility] Lab Results: +/- 30 days of the [...] Comment Aug 23, 2024 08:21 AM [facility] MAGNESIUM Specimen Type: PLASMA No comment entered. Ordering Provider: SILVIA REDDY Report Released Date/Time: Aug 22, 2024 11:26 AM Reporting Lab: [facility] [address] Performing Lab: [facility] [address] MAGNESIUM 1.8 mg/dL 1.6-2.6 Aug 23, 2024 08:21 AM [facility] CBC Specimen Type: BLOOD No comment entered. Ordering Provider: SILVIA REDDY Report Released Date/Time: Aug 22, 2024 11:19 AM Reporting Lab: [facility] [address] Performing Lab: [facility] [address] WBC 4.0 10*3/uL 3.6-11.2 RBC 3.65 10*6/uL [...] 0.00-0.20 Aug 23, 2024 05:12 AM [facility] GLUCOSE,BLOOD-poct (STL) Specimen Type: BLOOD Comment: Test Performed by: [id number] Meter #: [id number] Ordering Provider: SILVIA REDDY Report Released Date/Time: Aug 23, 2024 05:23 AM Reporting Lab: [facility] [address] Performing Lab: [facility] #[address] [facility] [address] GLUCOSE,BLOOD- poct (STL) 99 mg/dL 72-99 Aug 23, 2024 02:45 AM [facility] OCCULT BLOOD FIT X1 SCREEN Specimen Type: FECES No comment entered. Ordering Provider: SILVIA REDDY Report Released Date/Time: Aug 22, 2024 11:23 AM Reporting Lab: [address] [address] Performing Lab: [address] [address] OCCULT BLOOD (FIT) #1 OF 1 Negative Negative Aug 22, 2024 07:30 PM [facility] OCCULT BLOOD FIT X1 SCREEN Specimen Type: FECES No comment entered. Ordering Provider: SILVIA REDDY Report Released Date/Time: Aug 22, 2024 11:23 AM Reporting Lab: [address] [address] Performing Lab: [address] [address] OCCULT BLOOD (FIT) #1 OF 1 Negative Negative Aug 22, 2024 06:15 PM [facility] OCCULT BLOOD FIT X1 SCREEN Specimen Type: FECES No comment entered. Ordering Provider: SILVIA REDDY Report Released Date/Time: Aug 22, 2024 11:23 AM Reporting Lab: [address] [address] Performing Lab: [place] [address] [facility] [address] OCCULT BLOOD (FIT) #1 OF 1 Negative Negative Aug 22, 2024 04:24 PM [facility] GLUCOSE,BLOOD-poct (STL) Specimen Type: BLOOD Comment: Test Performed by: [id number] Meter #: [id number] Ordering Provider: SILVIA REDDY Report Released Date/Time: Aug 22, 2024 04:36 PM Reporting Lab: [facility] [address] Performing Lab: [facility] #1 [facility] [address] GLUCOSE,BLOOD- poct (STL) 176 mg/dL H -Aug 22, 2024 04:23 PM [facility] GLUCOSE,BLOOD-poct (STL) Specimen Type: BLOOD Comment: Test Performed by: [id number] Meter #: [id number] Ordering Provider: SILVIA REDDY Report Released Date/Time: Aug 22, 2024 04:36 PM Reporting Lab: [facility] [address] Performing Lab: [facility] #[address] [facility] [address] GLUCOSE,BLOOD- poct (STL) 221 mg/dL H 72-Aug 22, 2024 11:15 AM [facility] GLUCOSE,BLOOD-poct (STL) Specimen Type: BLOOD Comment: Test Performed by: [id number] Meter #: [id number] Ordering Provider: SILVIA REDDY Report Released Date/Time: Aug 22, 2024 11:27 AM Reporting Lab: [facility] [address] Performing Lab: [facility] [address] [facility] [address] GLUCOSE,BLOOD- poct (STL) 140 mg/dL H 72-Aug 22, 2024 08:[address] [facility] FERRITIN Specimen Type: SERUM No comment entered. Ordering Provider: JUDIT PERKINS Report Released Date/Time: Aug 18, 2024 11:01 AM Reporting Lab: [facility] [address] [facility] [address] Performing Lab: [facility] [address] [facility] [address] FERRITIN 79.50 ng/mL 22-275 Aug 22, 2024 08:03 AM [facility] B12 Specimen Type: SERUM No comment entered. Ordering Provider: JUDIT PERKINS Report Released Date/Time: Aug 18, 2024 11:01 AM Reporting Lab: [facility] [address] Performing Lab: [facility] [address] B12 631 pg/mL 213-816 Aug 22, 2024 08:03 AM [facility] IRON/TIBC PROFILE Specimen Type: SERUM No comment entered. Ordering Provider: JUDIT PERKINS Report Released Date/Time: Aug 18, 2024 11:01 AM Reporting Lab: [place] [id number] [facility] [address] Performing Lab: [facility] [address] [place] [address] TIBC 283 ug/dL 250-450 TRANSFERRIN 226 mg/dL 163-344 IRON SATURATION 7 L 20-50 IRON 19 ug/dL L 65-175 Aug 22, 2024 08:03 AM [facility] COMPREHENSIVE METABOLIC PANEL Specimen Type: PLASMA Comment: No hemolysis noted. Ordering Provider: SILVIA REDDY Report Released Date/Time: Aug 17, 2024 01:18 PM Reporting Lab: [facility] [address] [facility] [address] Performing Lab: [address] [address] CREATININE 0.80 mg/dL 0.7-1.3 UREA NITROGEN 9.7 [...] 94.0 >60 Aug 22, 2024 08:03 AM [facility] CBC Specimen Type: BLOOD No comment entered. Ordering Provider: SILVIA REDDY Report Released Date/Time: Aug 17, 2024 01:18 PM Reporting Lab: [facility] [facility] [address] Performing Lab: [facility] [address] WBC 3.5 10*3/uL L 3.6-11.2 RBC 3.23 [...] 0 Aug 22, 2024 05:03 AM [facility] GLUCOSE,BLOOD-poct (STL) Specimen Type: BLOOD Comment: Test Performed by: [id number] Meter #: [id number] Ordering Provider: SILVIA REDDY Report Released Date/Time: Aug 22, 2024 06:17 AM Reporting Lab: [facility] [address] [facility] [address] Performing Lab: [facility] [address] [facility] [address] GLUCOSE,BLOOD- poct (STL) 170 mg/dL H 72-Aug 21, 2024 04:32 PM [facility] GLUCOSE,BLOOD-poct (STL) Specimen Type: BLOOD Comment: Test Performed by: [id number] Meter #: [id number] Ordering Provider: SILVIA REDDY Report Released Date/Time: Aug 21, 2024 04:49 PM Reporting Lab: [facility] [facility] [address] Performing Lab: [facility] [address] [facility] [address] GLUCOSE,BLOOD- poct (STL) 169 mg/dL H -Aug 21, 2024 11:53 AM [facility] GLUCOSE,BLOOD-poct (STL) Specimen Type: BLOOD Comment: Test Performed by: [id number] Meter #: [id number] Ordering Provider: SILVIA REDDY Report Released Date/Time: Aug 21, 2024 12:11 PM Reporting Lab: [facility] [address] [facility] [address] Performing Lab: [facility] [address] [facility] [address] GLUCOSE,BLOOD- poct (STL) 149 mg/dL H 72-Aug 21, 2024 05:10 AM [facility] GLUCOSE,BLOOD-poct (STL) Specimen Type: BLOOD Comment: Test Performed by: [id number] Meter #: [id number] Ordering Provider: SILVIA REDDY Report Released Date/Time: Aug 21, 2024 05:27 AM Reporting Lab: [facility] [address] [facility] [address] Performing Lab: [facility] [address] [facility] [address] GLUCOSE,BLOOD- poct (STL) 118 mg/dL H 72-Aug 20, 2024 04:38 PM [facility] GLUCOSE,BLOOD-poct (STL) Specimen Type: BLOOD Comment: Test Performed by: [id number] Meter #: [id number] Ordering Provider: SILVIA REDDY Report Released Date/Time: Aug 21, 2024 01:55 AM Reporting Lab: [facility] [address] [facility] [address] Performing Lab: [facility] [address] [place] [address] GLUCOSE,BLOOD- poct (STL) 169 mg/dL H -Aug 20, 2024 04:36 PM [facility] GLUCOSE,BLOOD-poct (STL) Specimen Type: BLOOD Comment: Test Performed by: [id number] Meter #: [id number] Ordering Provider: SILVIA REDDY Report Released Date/Time: Aug 21, 2024 01:55 AM Reporting Lab: [facility] [address] [facility] [address] Performing Lab: [facility] [address] [facility] [address] GLUCOSE,BLOOD- poct (STL) 395 mg/dL H 72-Aug 20, 2024 11:45 AM [facility] GLUCOSE,BLOOD-poct (STL) Specimen Type: BLOOD Comment: Test Performed by: [id number] Meter #: [id number] Ordering Provider: SILVIA REDDY Report Released Date/Time: Aug 20, 2024 11:56 AM Reporting Lab: [facility] [address] [place] [address] Performing Lab: [facility] [address] GLUCOSE,BLOOD- poct (STL) 169 mg/dL H -Aug 20, 2024 05:06 AM [facility] GLUCOSE,BLOOD-poct (STL) Specimen Type: BLOOD Comment: Test Performed by: [id number] Meter #: [id number] Ordering Provider: SILVIA REDDY Report Released Date/Time: Aug 20, 2024 06:05 AM Reporting Lab: [facility] [facility] [address] Performing Lab: [facility] [address] [facility] [address] GLUCOSE,BLOOD- poct (STL) 115 mg/dL H -Aug 19, 2024 04:23 PM [facility] GLUCOSE,BLOOD-poct (STL) Specimen Type: BLOOD Comment: Test Performed by: [id number] Meter #: [id number] Ordering Provider: SILVIA REDDY Report Released Date/Time: Aug 19, 2024 05:54 PM Reporting Lab: [facility] [address] Performing Lab: [facility] [address] GLUCOSE,BLOOD- poct (STL) 137 mg/dL H -Aug 19, 2024 11:28 AM [facility] GLUCOSE,BLOOD-poct (STL) Specimen Type: BLOOD Comment: Test Performed by: [id number] Meter #: [id number] Ordering Provider: SILVIA REDDY Report Released Date/Time: Aug 19, 2024 11:51 AM Reporting Lab: [facility] [address] Performing Lab: [facility] [facility] [address] GLUCOSE,BLOOD- poct (STL) 190 mg/dL H Aug 19, 2024 05:21 AM [facility] GLUCOSE,BLOOD-poct (STL) Specimen Type: BLOOD Comment: Test Performed by: [id number] Meter #: [id number] Ordering Provider: SILVIA REDDY Report Released Date/Time: Aug 19, 2024 05:56 AM Reporting Lab: [facility] [facility] [address] Performing Lab: [facility] [address] [facility] [address] GLUCOSE,BLOOD- poct (STL) 130 mg/dL H Aug 18, 2024 04:49 PM [facility] GLUCOSE,BLOOD-poct (STL) Specimen Type: BLOOD Comment: Test Performed by: [id number] Meter #: [id number] Ordering Provider: SILVIA REDDY Report Released Date/Time: Aug 18, 2024 05:01 PM Reporting Lab: [facility] [address] Performing Lab: [facility] [facility] [address] GLUCOSE,BLOOD- poct (STL) 129 mg/dL H Aug 18, 2024 11:23 AM [facility] GLUCOSE,BLOOD-poct (STL) Specimen Type: BLOOD Comment: Test Performed by: [id number] Meter #: [id number] Ordering Provider: SILVIA REDDY Report Released Date/Time: Aug 18, 2024 11:41 AM Reporting Lab: [facility] [facility] [address] Performing Lab: [facility] [facility] [address] GLUCOSE,BLOOD- poct (STL) 180 mg/dL H Aug 18, 2024 05:08 AM [facility] GLUCOSE,BLOOD-poct (STL) Specimen Type: BLOOD Comment: Test Performed by: [id number] Meter #: [id number] Ordering Provider: SILVIA REDDY Report Released Date/Time: Aug 18, 2024 05:31 AM Reporting Lab: [facility] [address] Performing Lab: [facility] [facility] [address] GLUCOSE,BLOOD- poct (STL) 127 mg/dL H -Aug 17, 2024 07:32 PM [facility] GLUCOSE,BLOOD-poct (STL) Specimen Type: BLOOD Comment: Test Performed by: [id number] Meter #: [id number] Ordering Provider: SILVIA REDDY Report Released Date/Time: Aug 17, 2024 07:59 PM Reporting Lab: [facility] [facility] [address] Performing Lab: [facility] [facility] [address] GLUCOSE,BLOOD- poct (STL) 154 mg/dL H -Aug 17, 2024 04:24 PM [facility] GLUCOSE,BLOOD-poct (STL) Specimen Type: BLOOD Comment: Test Performed by: [id number] Meter #: [id number] Ordering Provider: SILVIA REDDY Report Released Date/Time: Aug 17, 2024 04:35 PM Reporting Lab: [facility] [address] Performing Lab: [facility] [address] GLUCOSE,BLOOD- poct (STL) 178 mg/dL H -Aug 17, 2024 05:09 AM [facility] GLUCOSE,BLOOD-poct (STL) Specimen Type: BLOOD Comment: Test Performed by: [id number] Meter #: [id number] Ordering Provider: SILVIA REDDY Report Released Date/Time: Aug 17, 2024 05:54 AM Reporting Lab: [facility] [place] [address] Performing Lab: [facility] [address] GLUCOSE,BLOOD- poct (STL) 124 mg/dL H -Aug 16, 2024 07:40 PM [facility] GLUCOSE,BLOOD-poct (STL) Specimen Type: BLOOD Comment: Test Performed by: [id number] Meter #: [id number] Ordering Provider: SILVIA REDDY Report Released Date/Time: Aug 16, 2024 08:28 PM Reporting Lab: [facility] [address] Performing Lab: [facility] [address] GLUCOSE,BLOOD- poct (STL) 144 mg/dL H Aug 16, 2024 04:19 PM [facility] GLUCOSE,BLOOD-poct (STL) Specimen Type: BLOOD Comment: Test Performed by: [id number] Meter #: [id number] Ordering Provider: SILVIA REDDY Report Released Date/Time: Aug 16, 2024 04:45 PM Reporting Lab: [facility] [address] Performing Lab: [facility] [address] GLUCOSE,BLOOD- poct (STL) 138 mg/dL H Aug 16, 2024 11:52 AM [facility] GLUCOSE,BLOOD-poct (STL) Specimen Type: BLOOD Comment: Test Performed by: [id number] Meter #: [id number] Ordering Provider: SILVIA REDDY Report Released Date/Time: Aug 16, 2024 12:04 PM Reporting Lab: [facility] [address] Performing Lab: [facility] [address] GLUCOSE,BLOOD- poct (STL) 135 mg/dL H Aug 16, 2024 05:24 AM [facility] GLUCOSE,BLOOD-poct (STL) Specimen Type: BLOOD Comment: Test Performed by: [id number] Meter #: [id number] Ordering Provider: SILVIA REDDY Report Released Date/Time: Aug 16, 2024 05:38 AM Reporting Lab: [facility] [address] Performing Lab: [facility] [address] GLUCOSE,BLOOD- poct (STL) 151 mg/dL H Aug 15, 2024 07:31 PM [facility] GLUCOSE,BLOOD-poct (STL) Specimen Type: BLOOD Comment: Test Performed by: [id number] Meter #: [id number] Ordering Provider: SILVIA REDDY Report Released Date/Time: Aug 15, 2024 08:07 PM Reporting Lab: [facility] [address] Performing Lab: [facility] [address] GLUCOSE,BLOOD- poct (STL) 173 mg/dL H Aug 15, 2024 04:18 PM [facility] GLUCOSE,BLOOD-poct (STL) Specimen Type: BLOOD Comment: Test Performed by: [id number] Meter #: [id number] Ordering Provider: SILVIA REDDY Report Released Date/Time: Aug 15, 2024 04:59 PM Reporting Lab: [facility] [address] Performing Lab: [facility] [address] GLUCOSE,BLOOD- poct (STL) 136 mg/dL H Aug 15, 2024 04:16 PM [facility] GLUCOSE,BLOOD-poct (STL) Specimen Type: BLOOD Comment: Test Performed by: [id number] Meter #: [id number] Ordering Provider: SILVIA REDDY Report Released Date/Time: Aug 15, 2024 04:59 PM Reporting Lab: [facility] [address] Performing Lab: [facility] [address] GLUCOSE,BLOOD- poct (STL) 194 mg/dL H -Aug 15, 2024 11:39 AM [facility] GLUCOSE,BLOOD-poct (STL) Specimen Type: BLOOD Comment: Test Performed by: [id number] Meter #: [id number] Ordering Provider: SILVIA REDDY Report Released Date/Time: Aug 15, 2024 12:00 PM Reporting Lab: [facility] [address] Performing Lab: [facility] [address] GLUCOSE,BLOOD- poct (STL) 127 mg/dL H -Aug 15, 2024 05:07 AM [facility] GLUCOSE,BLOOD-poct (STL) Specimen Type: BLOOD Comment: Test Performed by: [id number] Meter #: [id number] Ordering Provider: SILVIA REDDY Report Released Date/Time: Aug 15, 2024 06:14 AM Reporting Lab: [facility] [address] Performing Lab: [facility] [address] GLUCOSE,BLOOD- poct (STL) 151 mg/dL H -Aug 14, 2024 04:22 PM [facility] GLUCOSE,BLOOD-poct (STL) Specimen Type: BLOOD Comment: Test Performed by: [id number] Meter #: [id number] Ordering Provider: SILVIA REDDY Report Released Date/Time: Aug 14, 2024 04:52 PM Reporting Lab: [facility] [address] [place] [address] Performing Lab: [facility] [address] GLUCOSE,BLOOD- poct (STL) 129 mg/dL H 72-99 Aug 14, 2024 11:21 AM [facility] GLUCOSE,BLOOD-poct (STL) Specimen Type: BLOOD Comment: Test Performed by: [id number] Meter #: [id number] Ordering Provider: SILVIA REDDY Report Released Date/Time: Aug 14, 2024 11:37 AM Reporting Lab: [facility] [address] Performing Lab: [facility] [address] GLUCOSE,BLOOD- poct (STL) 135 mg/dL H 72-99 Aug 14, 2024 06:59 AM [facility] QUANTIFERON-TB,4 TUBE Specimen Type: BLOOD Comment: [...] For additional information, please refer to http://education. [employer]/faq/BOV060 (This link is being provided for information/ educational purposes only.) Test Performed by [employer] [facility], [address] [place] [address] Tommie Garcia M.D., Ph.D., Director of Laboratories , [facility] [id number] Ordering Provider: SILVIA REDDY Report Released Date/Time: Aug 11, 2024 03:58 PM Reporting Lab: [facility] [address] [facility] [address] Performing Lab: [facility] [id number] [place] [id number] .NIL - QUANTIFERON 0.04 [IU]/mL .MITOGEN-NIL 0.39 [IU]/mL .QUANTIFERON INDETERMINATE NEGATIVE .TB1-NIL <0.00 [IU]/mL .TB2-NIL <0.00 [IU]/mL Aug 14, 2024 06:59 AM [facility] MAGNESIUM Specimen Type: PLASMA Comment: No hemolysis noted. Ordering Provider: SILVIA REDDY Report Released Date/Time: Aug 11, 2024 03:58 PM Reporting Lab: [facility] [facility] [address] Performing Lab: [facility] [facility] [address] MAGNESIUM 1.9 mg/dL 1.6-2.6 Aug 14, 2024 06:59 AM [facility] B12 Specimen Type: SERUM No comment entered. Ordering Provider: SILVIA REDDY Report Released Date/Time: Aug 11, 2024 03:58 PM Reporting Lab: [facility] [facility] [address] Performing Lab: [facility] [facility] [address] B12 757 pg/mL 213-816 Aug 14, 2024 06:59 AM [facility] FOLATE (STL-MA) Specimen Type: SERUM No comment entered. Ordering Provider: SILVIA REDDY Report Released Date/Time: Aug 11, 2024 03:58 PM Reporting Lab: [facility] [facility] [address] Performing Lab: [facility] [facility] [address] FOLATE (STL-MA) 6.8 ng/mL L 7-20 Aug 14, 2024 06:59 AM [facility] VITAMIN D, 25-HYDROXY Specimen Type: SERUM No comment entered. Ordering Provider: SILVIA REDDY Report Released Date/Time: Aug 11, 2024 03:58 PM Reporting Lab: [facility] [facility] [address] Performing Lab: [facility] [facility] [address] VITAMIN D, 25-HYDROXY 8.9 ng/mL L 30-96 Aug 14, 2024 06:59 AM [facility] COMPREHENSIVE METABOLIC PANEL Specimen Type: PLASMA Comment: No hemolysis noted. Ordering Provider: SILVIA REDDY Report Released Date/Time: Aug 11, 2024 03:58 PM Reporting Lab: [facility] [facility] [address] Performing Lab: [facility] #1 [facility] [address] CREATININE 0.75 mg/dL 0.70-1.30 UREA NITROGEN 13.6 [...] >60 Aug 14, 2024 06:59 AM [facility] CBC Specimen Type: BLOOD No comment entered. Ordering Provider: SILVIA REDDY Report Released Date/Time: Aug 11, 2024 03:58 PM Reporting Lab: [facility] [address] Performing Lab: [facility] [address] WBC 4.1 10*3/uL 3.6-11.2 RBC 3.20 10*6/uL [...] 0.00-0.20 Aug 14, 2024 05:08 AM [facility] GLUCOSE,BLOOD-poct (STL) Specimen Type: BLOOD Comment: Test Performed by: [id number] Meter #: [id number] Ordering Provider: SILVIA REDDY Report Released Date/Time: Aug 14, 2024 05:52 AM Reporting Lab: [facility] [address] Performing Lab: [facility] [address] GLUCOSE,BLOOD- poct (STL) 135 mg/dL H 72-99 Aug 13, 2024 04:27 PM [facility] GLUCOSE,BLOOD-poct (STL) Specimen Type: BLOOD Comment: Test Performed by: [id number] Meter #: [id number] Ordering Provider: SILVIA REDDY Report Released Date/Time: Aug 13, 2024 04:41 PM Reporting Lab: [facility] #1 [facility] [address] Performing Lab: [facility] [address] GLUCOSE,BLOOD- poct (STL) 181 mg/dL H -Aug 13, 2024 11:33 AM [facility] GLUCOSE,BLOOD-poct (STL) Specimen Type: BLOOD Comment: Test Performed by: [id number] Meter #: [id number] Ordering Provider: SILVIA REDDY Report Released Date/Time: Aug 13, 2024 03:55 PM Reporting Lab: [facility] [address] Performing Lab: [facility] [place] [address] GLUCOSE,BLOOD- poct (STL) 140 mg/dL H Aug 13, 2024 05:54 AM [facility] GLUCOSE,BLOOD-poct (STL) Specimen Type: BLOOD Comment: Test Performed by: [id number] Meter #: [id number] Ordering Provider: SILVIA REDDY Report Released Date/Time: Aug 13, 2024 06:20 AM Reporting Lab: [facility] [address] Performing Lab: [facility] [address] GLUCOSE,BLOOD- poct (STL) 112 mg/dL H Aug 12, 2024 04:35 PM [facility] GLUCOSE,BLOOD-poct (STL) Specimen Type: BLOOD Comment: Test Performed by: [id number] Meter #: [id number] Ordering Provider: SILVIA REDDY Report Released Date/Time: Aug 12, 2024 04:47 PM Reporting Lab: [facility] [address] Performing Lab: [facility]1 [facility] [address] GLUCOSE,BLOOD- poct (STL) 128 mg/dL H 72-99 Aug 12, 2024 11:26 AM [facility] GLUCOSE,BLOOD-poct (STL) Specimen Type: BLOOD Comment: Test Performed by: [id number] Meter #: [id number] Ordering Provider: SILVIA REDDY Report Released Date/Time: Aug 12, 2024 11:45 AM Reporting Lab: [facility]1 [facility] [address] Performing Lab: [facility]1 [facility] [address] GLUCOSE,BLOOD- poct (STL) 188 mg/dL H 72-Aug 12, 2024 06:13 AM [facility] GLUCOSE,BLOOD-poct (STL) Specimen Type: BLOOD Comment: Test Performed by: [id number] Meter #: [id number] Ordering Provider: SILVIA REDDY Report Released Date/Time: Aug 12, 2024 06:25 AM Reporting Lab: [facility]1 [facility] [address] Performing Lab: [facility]1 [facility] [address] GLUCOSE,BLOOD- poct (STL) 116 mg/dL H 72-99 Aug 11, 2024 04:10 PM [facility] GLUCOSE,BLOOD-poct (STL) Specimen Type: BLOOD Comment: Test Performed by: [id number] Meter #: [id number] Ordering Provider: SILVIA REDDY Report Released Date/Time: Aug 11, 2024 04:27 PM Reporting Lab: [facility]1 [place] [address] Performing Lab: [facility] [address] GLUCOSE,BLOOD- poct (STL) 184 mg/dL H 72-99 Aug 11, 2024 01:44 PM [facility] MRSA SURVL NARES DNA Specimen [...] Aug 11, 2024 02:03 PM Reporting Lab: [address] [address] Performing Lab: [address] [address] MRSA SURVL NARES DNA Negative Negative Jul 20, 2024 11:18 AM [facility] APTT Specimen Type: PLASMA No comment entered. Ordering Provider: MANUEL BAIRD Report Released Date/Time: Jul 19, 2024 04:00 PM Reporting Lab: [address] [address] Performing Lab: [address] [address] APTT 32.1 s 26.7-39.9 Jul 20, 2024 11:18 AM [facility] PT/INR NEW (L-MS) Specimen Type: PLASMA No comment entered. Ordering Provider: MANUEL BAIRD Report Released Date/Time: Jul 19, 2024 04:00 PM Reporting Lab: [address] [address] Performing Lab: [address] [address] PROTIME 14.4 s H 9.4-12.5 INR VALUE 1.3 {INR} Jul 20, 2024 11:18 AM [facility] CBC Specimen Type: BLOOD No comment entered. Ordering Provider: MANUEL BAIRD Report Released Date/Time: Jul 19, 2024 04:00 PM Reporting Lab: [facility] [address] [facility] [address] Performing Lab: [facility] [address] [place] [address] WBC 4.7 10*3/uL 3.6-11.2 RBC 4.86 10*6/uL [...] 1.6 1.0-7.0 Jul 17, 2024 08:02 AM [facility] BASIC METABOLIC PANEL Specimen Type: PLASMA Comment: No hemolysis noted. Ordering Provider: MARY SERNA Report Released Date/Time: Jun 07, 2024 01:43 PM Reporting Lab: [facility] [address] [facility] [address] Performing Lab: [address] [address] CREATININE 0.85 mg/dL 0.7-1.3 UREA NITROGEN 15.2 [...] 08:19 PM 98.1 74 139/[address] [facility] N Aug 11, 2024 08:15 PM 0 [facility] N Aug 11, 2024 02:[address] [facility] N Aug 11, 2024 02:22 PM 97.6 124/77 18 [facility] N Advance Directives: All historical and [...] DIRECTIVE DISCUSSION ERICK BARDALES [facility]
--- OUTSIDE RECORDS SUMMARY | 2024-11-17 04:00 | XMS_ITS | Encounter Summary ---
Author Name [facility] Organization [facility] Address [address] [place] [address] Care Team Providers Care Varnish Dipper Name Role Phone MANUEL BAIRD Primary Care [...] PART A Apr 08, 2017 PART A [id number] ASHLEY WALKER PATIENT Selected Encounter This section includes the information on record at [place] for the Encounter. Date/Time Encounter Type Encounter Description Reason Provider Source Aug 11, 2024 03:29 PM CASE MANAGEMENT SOCIAL WORK SERVICE ICD-10-CM G47.33 Obstructive sleep apnea (adult) (pediatric) WARD ELIZABETH Encounter Template Text not used by [facility] Assessments - Encounter Diagnoses This section includes the primary and secondary diagnoses documented for the Encounter. Date/Time Primary/Secondary Diagnosis Diagnosis Name Provider Source Aug 11, 2024 04:12 PM PRIMARY Obstructive sleep apnea (adult) (pediatric) JEFFREY ELIZABETH [facility] Plan of Treatment: Future Appointments (+ 6 months) and Future Tests (+/- 45 days) The Plan of Treatment section includes future care activities for the patient from all [place] [facility]. This section includes future appointments and future orders which are active, pending or scheduled. Future Appointments This section includes appointments that were scheduled to occur 6 months from the date of the Encounter, up to a maximum of 20 appointments. The data comes from all [facility]. Appointment Date/Time Appointment Type Appointme nt Facility Name Aug 24, 2024 10:00 AM AMBULATORY - MEDICINE [facility] Aug 24, 2024 10:30 AM AMBULATORY - MEDICINE [facility] Aug 30, 2024 09:30 AM AMBULATORY MEDICINE [facility] Aug 31, 2024 01:00 PM AMBULATORY - SURGERY [facility] Sep 21, 2024 01:30 PM AMBULATORY MEDICINE [facility] Sep 22, 2024 11:00 AM AMBULATORY - MEDICINE [facility] Sep 29, 2024 12:30 PM AMBULATORY - MEDICINE [facility] Oct 02, 2024 09:30 AM AMBULATORY - MEDICINE [facility] Nov 20, 2024 10:30 AM AMBULATORY - SURGERY [facility] Nov 21, 2024 10:00 AM AMBULATORY - NONE [facility] Dec 11, 2024 10:30 AM AMBULATORY - MEDICINE [facility] Active, Pending, [...] of theEncounter. The data comes from all [facility]. Test Date/Time Test Type Test Details Facility Name Aug 02, 2024 12:00 AM Laboratory - Chemistry Order COMPREHENSIVE METABOLIC PANEL GREEN LI/HEP BLD/PLAS PLASMA SP [facility] Aug 02, 2024 12:00 AM Laboratory - Chemistry Order CBC BLOOD STAT SP [facility] Aug 17, 2024 03:47 PM Consult Order [facility] Cons Bedside [facility] Lab Results: +/- 30 days of [...] Range Comment Aug 23, 2024 08:[address] [facility] MAGNESIUM Specimen Type: PLASMA No comment entered. Ordering Provider: SILVIA REDDY Report Released Date/Time: Aug 22, 2024 11:26 AM Reporting Lab: [facility] [address] Performing Lab: [facility] [address] MAGNESIUM 1.8 mg/dL 1.6-2.6 Aug 23, 2024 08:[address] [facility] CBC Specimen Type: BLOOD No comment entered. Ordering Provider: SILVIA REDDY Report Released Date/Time: Aug 22, 2024 11:19 AM Reporting Lab: [facility] [address] Performing Lab: [facility] [address] WBC 4.0 10*3/uL 3.6-11.2 RBC 3.65 10*6/uL [...] 10*3/uL 0.00-0.20 Aug 23, 2024 05:[address] [facility] GLUCOSE,BLOOD-poct (STL) Specimen Type: BLOOD Comment: Test Performed by: [id number] Meter #: [id number] Ordering Provider: SILVIA REDDY Report Released Date/Time: Aug 23, 2024 05:23 AM Reporting Lab: [facility] [address] Performing Lab: [facility] [address] GLUCOSE,BLOOD- poct (STL) 99 mg/dL 72-99 Aug 23, 2024 02:[address] [facility] OCCULT BLOOD FIT X1 SCREEN Specimen Type: FECES No comment entered. Ordering Provider: SILVIA REDDY Report Released Date/Time: Aug 22, 2024 11:23 AM Reporting Lab: [address] [address] Performing Lab: [address] [address] OCCULT BLOOD (FIT) #1 OF 1 Negative Negative Aug 22, 2024 07:[address] [facility] OCCULT BLOOD FIT X1 SCREEN Specimen Type: FECES No comment entered. Ordering Provider: SILVIA REDDY Report Released Date/Time: Aug 22, 2024 11:23 AM Reporting Lab: [address] [address] Performing Lab: [address] [address] OCCULT BLOOD (FIT) #1 OF 1 Negative Negative Aug 22, 2024 06:[address] [facility] OCCULT BLOOD FIT X1 SCREEN Specimen Type: FECES No comment entered. Ordering Provider: SILVIA REDDY Report Released Date/Time: Aug 22, 2024 11:23 AM Reporting Lab: [facility] [address] [place] [phone] Performing Lab: [address] [address] OCCULT BLOOD (FIT) #1 OF 1 Negative Negative Aug 22, 2024 04:[address] [facility] GLUCOSE,BLOOD-poct (STL) Specimen Type: BLOOD Comment: Test Performed by: [id number] Meter #: [id number] Ordering Provider: SILVIA REDDY Report Released Date/Time: Aug 22, 2024 04:36 PM Reporting Lab: [facility] [address] Performing Lab: [facility] [address] GLUCOSE,BLOOD- poct (STL) 176 mg/dL H 72-99 Aug 22, 2024 04:[address] [facility] GLUCOSE,BLOOD-poct (STL) Specimen Type: BLOOD Comment: Test Performed by: [id number] Meter #: [id number] Ordering Provider: SILVIA REDDY Report Released Date/Time: Aug 22, 2024 04:36 PM Reporting Lab: [facility] [address] Performing Lab: [facility] [address] GLUCOSE,BLOOD- poct (STL) 221 mg/dL H 72-99 Aug 22, 2024 11:[address] [facility] GLUCOSE,BLOOD-poct (STL) Specimen Type: BLOOD Comment: Test Performed by: [id number] Meter #: [id number] Ordering Provider: SILVIA REDDY Report Released Date/Time: Aug 22, 2024 11:27 AM Reporting Lab: [facility] [address] Performing Lab: [facility] [address] GLUCOSE,BLOOD- poct (STL) 140 mg/dL H 72-99 Aug 22, 2024 08:[address] [facility] FERRITIN Specimen Type: SERUM No comment entered. Ordering Provider: JUDIT PERKINS Report Released Date/Time: Aug 18, 2024 11:01 AM Reporting Lab: [facility] [address] [facility] [address] Performing Lab: [facility] [address] [facility] [address] FERRITIN 79.50 ng/mL 22-275 Aug 22, 2024 08:[address] [facility] B12 Specimen Type: SERUM No comment entered. Ordering Provider: JUDIT PERKINS Report Released Date/Time: Aug 18, 2024 11:01 AM Reporting Lab: [facility] [address] Performing Lab: [facility] [address] B12 631 pg/mL 213-816 Aug 22, 2024 08:[address] [facility] IRON/TIBC PROFILE Specimen Type: SERUM No comment entered. Ordering Provider: JUDIT PERKINS Report Released Date/Time: Aug 18, 2024 11:01 AM Reporting Lab: [facility] [address] [facility] [address] Performing Lab: [facility] [address] [facility] [address] TIBC 283 ug/dL 250-450 TRANSFERRIN 226 mg/dL 163-344 IRON SATURATION 7 L 20-50 IRON 19 ug/dL L 65-175 Aug 22, 2024 08:[address] [facility] COMPREHENSIVE METABOLIC PANEL Specimen Type: PLASMA Comment: No hemolysis noted. Ordering Provider: SILVIA REDDY Report Released Date/Time: Aug 17, 2024 01:18 PM Reporting Lab: [facility] [address] [facility] [address] Performing Lab: [facility] [address] [place] [address] CREATININE 0.80 mg/dL 0.7-1.3 UREA NITROGEN 9.7 [...] 94.0 >60 Aug 22, 2024 08:03 AM [facility] CBC Specimen Type: BLOOD No comment entered. Ordering Provider: SILVIA REDDY Report Released Date/Time: Aug 17, 2024 01:18 PM Reporting Lab: [facility] [address] Performing Lab: [facility] [address] WBC 3.5 10*3/uL L 3.6-11.2 RBC 3.23 [...] NRBC% 0 Aug 22, 2024 05:[address] [facility] GLUCOSE,BLOOD-poct (STL) Specimen Type: BLOOD Comment: Test Performed by: [id number] Meter #: [id number] Ordering Provider: SILVIA REDDY Report Released Date/Time: Aug 22, 2024 06:17 AM Reporting Lab: [facility] [place] [address] Performing Lab: [facility] [place] [address] GLUCOSE,BLOOD- poct (STL) 170 mg/dL H 72-99 Aug 21, 2024 04:[address] [facility] GLUCOSE,BLOOD-poct (STL) Specimen Type: BLOOD Comment: Test Performed by: [id number] Meter #: [id number] Ordering Provider: SILVIA REDDY Report Released Date/Time: Aug 21, 2024 04:49 PM Reporting Lab: [facility] [place] [address] Performing Lab: [facility] [place] [address] GLUCOSE,BLOOD- poct (STL) 169 mg/dL H 72-99 Aug 21, 2024 11:[address] [facility] GLUCOSE,BLOOD-poct (STL) Specimen Type: BLOOD Comment: Test Performed by: [id number] Meter #: [id number] Ordering Provider: SILVIA REDDY Report Released Date/Time: Aug 21, 2024 12:11 PM Reporting Lab: [facility] [place] [address] Performing Lab: [facility] [address] GLUCOSE,BLOOD- poct (STL) 149 mg/dL H -Aug 21, 2024 05:[address] [facility] GLUCOSE,BLOOD-poct (STL) Specimen Type: BLOOD Comment: Test Performed by: [id number] Meter #: [id number] Ordering Provider: SILVIA REDDY Report Released Date/Time: Aug 21, 2024 05:27 AM Reporting Lab: [facility] [address] Performing Lab: [facility] [address] GLUCOSE,BLOOD- poct (STL) 118 mg/dL H -Aug 20, 2024 04:[address] [facility] GLUCOSE,BLOOD-poct (STL) Specimen Type: BLOOD Comment: Test Performed by: [id number] Meter #: [id number] Ordering Provider: SILVIA REDDY Report Released Date/Time: Aug 21, 2024 01:55 AM Reporting Lab: [facility] [address] Performing Lab: [facility] [address] GLUCOSE,BLOOD- poct (STL) 169 mg/dL H -Aug 20, 2024 04:[address] [facility] GLUCOSE,BLOOD-poct (STL) Specimen Type: BLOOD Comment: Test Performed by: [id number] Meter #: [id number] Ordering Provider: SILVIA REDDY Report Released Date/Time: Aug 21, 2024 01:55 AM Reporting Lab: [facility] [address] Performing Lab: [facility] [address] GLUCOSE,BLOOD- poct (STL) 395 mg/dL H -Aug 20, 2024 11:[address] [facility] GLUCOSE,BLOOD-poct (STL) Specimen Type: BLOOD Comment: Test Performed by: [id number] Meter #: [id number] Ordering Provider: SILVIA REDDY Report Released Date/Time: Aug 20, 2024 11:56 AM Reporting Lab: [facility] [address] Performing Lab: [facility] [address] GLUCOSE,BLOOD- poct (STL) 169 mg/dL H -Aug 20, 2024 05:[address] [facility] GLUCOSE,BLOOD-poct (STL) Specimen Type: BLOOD Comment: Test Performed by: [id number] Meter #: [id number] Ordering Provider: SILVIA REDDY Report Released Date/Time: Aug 20, 2024 06:05 AM Reporting Lab: [facility] [address] Performing Lab: [facility] [address] GLUCOSE,BLOOD- poct (STL) 115 mg/dL H -Aug 19, 2024 04:[address] [facility] GLUCOSE,BLOOD-poct (STL) Specimen Type: BLOOD Comment: Test Performed by: [id number] Meter #: [id number] Ordering Provider: SILVIA REDDY Report Released Date/Time: Aug 19, 2024 05:54 PM Reporting Lab: [facility] [address] Performing Lab: [facility] [address] GLUCOSE,BLOOD- poct (STL) 137 mg/dL H -Aug 19, 2024 11:[address] [facility] GLUCOSE,BLOOD-poct (STL) Specimen Type: BLOOD Comment: Test Performed by: [id number] Meter #: [id number] Ordering Provider: SILVIA REDDY Report Released Date/Time: Aug 19, 2024 11:51 AM Reporting Lab: [facility] [address] Performing Lab: [facility] [address] GLUCOSE,BLOOD- poct (STL) 190 mg/dL H 72-99 Aug 19, 2024 05:[address] [facility] GLUCOSE,BLOOD-poct (STL) Specimen Type: BLOOD Comment: Test Performed by: [id number] Meter #: [id number] Ordering Provider: SILVIA REDDY Report Released Date/Time: Aug 19, 2024 05:56 AM Reporting Lab: [facility] [address] Performing Lab: [facility] [address] GLUCOSE,BLOOD- poct (STL) 130 mg/dL H 72-Aug 18, 2024 04:[address] [facility] GLUCOSE,BLOOD-poct (STL) Specimen Type: BLOOD Comment: Test Performed by: [id number] Meter #: [id number] Ordering Provider: SILVIA REDDY Report Released Date/Time: Aug 18, 2024 05:01 PM Reporting Lab: [facility] [address] Performing Lab: [facility] [address] GLUCOSE,BLOOD- poct (STL) 129 mg/dL H 72-99 Aug 18, 2024 11:[address] [facility] GLUCOSE,BLOOD-poct (STL) Specimen Type: BLOOD Comment: Test Performed by: [id number] Meter #: [id number] Ordering Provider: SILVIA REDDY Report Released Date/Time: Aug 18, 2024 11:41 AM Reporting Lab: [facility] [place] [address] Performing Lab: [facility] [address] GLUCOSE,BLOOD- poct (STL) 180 mg/dL H -Aug 18, 2024 05:[address] [facility] GLUCOSE,BLOOD-poct (STL) Specimen Type: BLOOD Comment: Test Performed by: [id number] Meter #: [id number] Ordering Provider: SILVIA REDDY Report Released Date/Time: Aug 18, 2024 05:31 AM Reporting Lab: [facility] [address] Performing Lab: [facility] [address] GLUCOSE,BLOOD- poct (STL) 127 mg/dL H Aug 17, 2024 07:[address] [facility] GLUCOSE,BLOOD-poct (STL) Specimen Type: BLOOD Comment: Test Performed by: [id number] Meter #: [id number] Ordering Provider: SILVIA REDDY Report Released Date/Time: Aug 17, 2024 07:59 PM Reporting Lab: [facility] [address] Performing Lab: [facility] [address] GLUCOSE,BLOOD- poct (STL) 154 mg/dL H Aug 17, 2024 04:[address] [facility] GLUCOSE,BLOOD-poct (STL) Specimen Type: BLOOD Comment: Test Performed by: [id number] Meter #: [id number] Ordering Provider: SILVIA REDDY Report Released Date/Time: Aug 17, 2024 04:35 PM Reporting Lab: [facility] [address] Performing Lab: [facility] [address] GLUCOSE,BLOOD- poct (STL) 178 mg/dL H Aug 17, 2024 05:[address] [facility] GLUCOSE,BLOOD-poct (STL) Specimen Type: BLOOD Comment: Test Performed by: [id number] Meter #: [id number] Ordering Provider: SILVIA REDDY Report Released Date/Time: Aug 17, 2024 05:54 AM Reporting Lab: [facility] [address] Performing Lab: [facility] [address] GLUCOSE,BLOOD- poct (STL) 124 mg/dL H -Aug 16, 2024 07:[address] [facility] GLUCOSE,BLOOD-poct (STL) Specimen Type: BLOOD Comment: Test Performed by: [id number] Meter #: [id number] Ordering Provider: SILVIA REDDY Report Released Date/Time: Aug 16, 2024 08:28 PM Reporting Lab: [facility] [address] Performing Lab: [facility] [address] GLUCOSE,BLOOD- poct (STL) 144 mg/dL H Aug 16, 2024 04:[address] [facility] GLUCOSE,BLOOD-poct (STL) Specimen Type: BLOOD Comment: Test Performed by: [id number] Meter #: [id number] Ordering Provider: SILVIA REDDY Report Released Date/Time: Aug 16, 2024 04:45 PM Reporting Lab: [facility] [address] Performing Lab: [facility] [address] GLUCOSE,BLOOD- poct (STL) 138 mg/dL H -Aug 16, 2024 11:[address] [facility] GLUCOSE,BLOOD-poct (STL) Specimen Type: BLOOD Comment: Test Performed by: [id number] Meter #: [id number] Ordering Provider: SILVIA REDDY Report Released Date/Time: Aug 16, 2024 12:04 PM Reporting Lab: [facility] [address] Performing Lab: [facility] [address] GLUCOSE,BLOOD- poct (STL) 135 mg/dL H 72-Aug 16, 2024 05:[address] [facility] GLUCOSE,BLOOD-poct (STL) Specimen Type: BLOOD Comment: Test Performed by: [id number] Meter #: [id number] Ordering Provider: SILVIA REDDY Report Released Date/Time: Aug 16, 2024 05:38 AM Reporting Lab: [facility] [address] Performing Lab: [facility] [address] GLUCOSE,BLOOD- poct (STL) 151 mg/dL H -Aug 15, 2024 07:[address] [facility] GLUCOSE,BLOOD-poct (STL) Specimen Type: BLOOD Comment: Test Performed by: [id number] Meter #: [id number] Ordering Provider: SILVIA REDDY Report Released Date/Time: Aug 15, 2024 08:07 PM Reporting Lab: [facility] [address] Performing Lab: [facility] [address] GLUCOSE,BLOOD- poct (STL) 173 mg/dL H 72-Aug 15, 2024 04:[address] [facility] GLUCOSE,BLOOD-poct (STL) Specimen Type: BLOOD Comment: Test Performed by: [id number] Meter #: [id number] Ordering Provider: SILVIA REDDY Report Released Date/Time: Aug 15, 2024 04:59 PM Reporting Lab: [facility] [place] [address] Performing Lab: [facility] [address] GLUCOSE,BLOOD- poct (STL) 136 mg/dL H -Aug 15, 2024 04:[address] [facility] GLUCOSE,BLOOD-poct (STL) Specimen Type: BLOOD Comment: Test Performed by: [id number] Meter #: [id number] Ordering Provider: SILVIA REDDY Report Released Date/Time: Aug 15, 2024 04:59 PM Reporting Lab: [facility] [address] Performing Lab: [facility] [address] GLUCOSE,BLOOD- poct (STL) 194 mg/dL H Aug 15, 2024 11:[address] [facility] GLUCOSE,BLOOD-poct (STL) Specimen Type: BLOOD Comment: Test Performed by: [id number] Meter #: [id number] Ordering Provider: SILVIA REDDY Report Released Date/Time: Aug 15, 2024 12:00 PM Reporting Lab: [facility] [address] Performing Lab: [facility] [address] GLUCOSE,BLOOD- poct (STL) 127 mg/dL H Aug 15, 2024 05:[address] [facility] GLUCOSE,BLOOD-poct (STL) Specimen Type: BLOOD Comment: Test Performed by: [id number] Meter #: [id number] Ordering Provider: SILVIA REDDY Report Released Date/Time: Aug 15, 2024 06:14 AM Reporting Lab: [facility] [address] Performing Lab: [facility] [address] GLUCOSE,BLOOD- poct (STL) 151 mg/dL H Aug 14, 2024 04:[address] [facility] GLUCOSE,BLOOD-poct (STL) Specimen Type: BLOOD Comment: Test Performed by: [id number] Meter #: [id number] Ordering Provider: SILVIA REDDY Report Released Date/Time: Aug 14, 2024 04:52 PM Reporting Lab: [facility] [address] Performing Lab: [facility] [address] GLUCOSE,BLOOD- poct (STL) 129 mg/dL H 72-Aug 14, 2024 11:[address] [facility] GLUCOSE,BLOOD-poct (STL) Specimen Type: BLOOD Comment: Test Performed by: [id number] Meter #: [id number] Ordering Provider: SILVIA REDDY Report Released Date/Time: Aug 14, 2024 11:37 AM Reporting Lab: [facility] [address] Performing Lab: [facility] [address] GLUCOSE,BLOOD- poct (STL) 135 mg/dL H 72-Aug 14, 2024 06:[address] [facility] QUANTIFERON-TB,4 TUBE Specimen Type: BLOOD Comment: normalcy [...] For additional information, please refer to http://education. [employer]. [employer]/faq/RTX425 (This link is being provided for information/ educational purposes only.) Test Performed by [employer] [employer], [address] [place], [place] Tommie Garcia M.D., Ph.D., Director of Laboratories , [facility] [id number] Ordering Provider: SILVIA REDDY Report Released Date/Time: Aug 11, 2024 03:58 PM Reporting Lab: [facility] [address] [facility] [address] Performing Lab: [facility] [address] [facility] .NIL - QUANTIFERON 0.04 [IU]/mL .MITOGEN-NIL 0.39 [IU]/mL .QUANTIFERON INDETERMINATE NEGATIVE .TB1-NIL <0.00 [IU]/mL .TB2-NIL <0.00 [IU]/mL Aug 14, 2024 06:59 AM [facility] MAGNESIUM Specimen Type: PLASMA Comment: No hemolysis noted. Ordering Provider: SILVIA REDDY Report Released Date/Time: Aug 11, 2024 03:58 PM Reporting Lab: [facility] [address] Performing Lab: [facility] [place] [phone] MAGNESIUM 1.9 mg/dL 1.6-2.6 Aug 14, 2024 06:59 AM [facility] B12 Specimen Type: SERUM No comment entered. Ordering Provider: SILVIA REDDY Report Released Date/Time: Aug 11, 2024 03:58 PM Reporting Lab: [facility] [address] Performing Lab: [facility] [place] [phone] B12 757 pg/mL 213-816 Aug 14, 2024 06:[address] [facility] FOLATE (L-MA) Specimen Type: SERUM No comment entered. Ordering Provider: SILVIA REDDY Report Released Date/Time: Aug 11, 2024 03:58 PM Reporting Lab: [facility] [place] [address] Performing Lab: [facility] [place] [address] FOLATE (L-MA) 6.8 ng/mL L 7-20 Aug 14, 2024 06:[address] [facility] VITAMIN D, 25-HYDROXY Specimen Type: SERUM No comment entered. Ordering Provider: SILVIA REDDY Report Released Date/Time: Aug 11, 2024 03:58 PM Reporting Lab: [facility] [place] [address] Performing Lab: [facility] [place] [address] VITAMIN D, 25-HYDROXY 8.9 ng/mL L 30-96 Aug 14, 2024 06:[address] [facility] CBC Specimen Type: BLOOD No comment entered. Ordering Provider: SILVIA REDDY Report Released Date/Time: Aug 11, 2024 03:58 PM Reporting Lab: [facility] [place] [address] Performing Lab: [facility] [place] [address] WBC 4.1 10*3/uL 3.6-11.2 RBC 3.20 10*6/uL [...] 10*3/uL 0.00-0.20 Aug 14, 2024 06:59 AM [facility] COMPREHENSIVE METABOLIC PANEL Specimen Type: PLASMA Comment: No hemolysis noted. Ordering Provider: SILVIA REDDY Report Released Date/Time: Aug 11, 2024 03:58 PM Reporting Lab: [facility] [id number] Performing Lab: [facility] [place] [phone] CREATININE 0.75 mg/dL 0.70-1.30 UREA NITROGEN 13.6 [...] 95.88 >60 Aug 14, 2024 05:08 AM [facility] GLUCOSE,BLOOD-poct (STL) Specimen Type: BLOOD Comment: Test Performed by: [id number] Meter #: [id number] Ordering Provider: SILVIA REDDY Report Released Date/Time: Aug 14, 2024 05:52 AM Reporting Lab: [facility] [phone] Performing Lab: [facility] [address] GLUCOSE,BLOOD- poct (STL) 135 mg/dL H -Aug 13, 2024 04:[address] [facility] GLUCOSE,BLOOD-poct (STL) Specimen Type: BLOOD Comment: Test Performed by: [id number] Meter #: [id number] Ordering Provider: SILVIA REDDY Report Released Date/Time: Aug 13, 2024 04:41 PM Reporting Lab: [facility] [address] Performing Lab: [facility] [address] GLUCOSE,BLOOD- poct (STL) 181 mg/dL H Aug 13, 2024 11:[address] [facility] GLUCOSE,BLOOD-poct (STL) Specimen Type: BLOOD Comment: Test Performed by: [id number] Meter #: [id number] Ordering Provider: SILVIA REDDY Report Released Date/Time: Aug 13, 2024 03:55 PM Reporting Lab: [facility] [address] Performing Lab: [facility] [address] GLUCOSE,BLOOD- poct (STL) 140 mg/dL H Aug 13, 2024 05:[address] [facility] GLUCOSE,BLOOD-poct (STL) Specimen Type: BLOOD Comment: Test Performed by: [id number] Meter #: [id number] Ordering Provider: SILVIA REDDY Report Released Date/Time: Aug 13, 2024 06:20 AM Reporting Lab: [facility] [address] Performing Lab: [facility] [address] GLUCOSE,BLOOD- poct (STL) 112 mg/dL H -Aug 12, 2024 04:[address] [facility] GLUCOSE,BLOOD-poct (STL) Specimen Type: BLOOD Comment: Test Performed by: [id number] Meter #: [id number] Ordering Provider: SILVIA REDDY Report Released Date/Time: Aug 12, 2024 04:47 PM Reporting Lab: [facility] [address] Performing Lab: [facility] [address] GLUCOSE,BLOOD- poct (STL) 128 mg/dL H Aug 12, 2024 11:[address] [facility] GLUCOSE,BLOOD-poct (STL) Specimen Type: BLOOD Comment: Test Performed by: [id number] Meter #: [id number] Ordering Provider: SILVIA REDDY Report Released Date/Time: Aug 12, 2024 11:45 AM Reporting Lab: [facility] [address] Performing Lab: [facility] [address] GLUCOSE,BLOOD- poct (STL) 188 mg/dL H Aug 12, 2024 06:[address] [facility] GLUCOSE,BLOOD-poct (STL) Specimen Type: BLOOD Comment: Test Performed by: [id number] Meter #: [id number] Ordering Provider: SILVIA REDDY Report Released Date/Time: Aug 12, 2024 06:25 AM Reporting Lab: [facility] [address] Performing Lab: [facility] [address] GLUCOSE,BLOOD- poct (STL) 116 mg/dL H Aug 11, 2024 04:[address] [facility] GLUCOSE,BLOOD-poct (STL) Specimen Type: BLOOD Comment: Test Performed by: [id number] Meter #: [id number] Ordering Provider: SILVIA REDDY Report Released Date/Time: Aug 11, 2024 04:27 PM Reporting Lab: [facility] [address] Performing Lab: [facility] [address] GLUCOSE,BLOOD- poct (STL) 184 mg/dL H 72-99 Aug 11, 2024 01:44 PM [facility] MRSA SURVL NARES DNA Specimen [...] Aug 11, 2024 02:03 PM Reporting Lab: [facility] [address] [place] [address] Performing Lab: [address] [address] MRSA SURVL NARES DNA Negative Negative Jul 20, 2024 11:18 AM [facility] APTT Specimen Type: PLASMA No comment entered. Ordering Provider: MANUEL BAIRD Report Released Date/Time: Jul 19, 2024 04:00 PM Reporting Lab: [facility] [address] [facility] [address] Performing Lab: [address] [address] APTT 32.1 s 26.7-39.9 Jul 20, 2024 11:18 AM [facility] PT/INR NEW (STL-MA) Specimen Type: PLASMA No comment entered. Ordering Provider: MANUEL BAIRD Report Released Date/Time: Jul 19, 2024 04:00 PM Reporting Lab: [facility] [address] [facility] [address] Performing Lab: [address] [address] PROTIME 14.4 s H 9.4-12.5 INR VALUE 1.3 {INR} Jul 20, 2024 11:18 AM [facility] CBC Specimen Type: BLOOD No comment entered. Ordering Provider: MANUEL BAIRD Report Released Date/Time: Jul 19, 2024 04:00 PM Reporting Lab: [place] [address] [facility] [address] Performing Lab: [address] [address] WBC 4.7 10*3/uL 3.6-11.2 RBC 4.86 10*6/uL [...] 1.0-7.0 Jul 17, 2024 08:[address] [facility] BASIC METABOLIC PANEL Specimen Type: PLASMA Comment: No hemolysis noted. Ordering Provider: MARY SERNA Report Released Date/Time: Jun 07, 2024 01:43 PM Reporting Lab: [facility] [address] [facility] [facility] [address] Performing Lab: [facility] [address] [facility] [address] CREATININE 0.85 mg/dL 0.7-1.3 UREA NITROGEN 15.2 [...] 08:19 PM 98.1 74 139/77 18 96 [facility] Aug 11, 2024 08:15 PM 0 [facility] Aug 11, 2024 02:26 PM 211.1 30 [facility] Aug 11, 2024 02:22 PM 97.6 124/77 18 [facility] Advance Directives: All historical and current Section Date Range: From patient's date of to the date document was created. This section includes ALL of a patient's completed or amended [place] Advance and Rescinded Directives. The entries below indicate that a directive exists for the patient, but an actual copy is not included with this document. The data comes from all [place] facilities. Date Advance Directives Provider Source Jan 19, 2017 ADVANCE DIRECTIVE DISCUSSION ERICK BARDALES [facility] Encounter Notes: All associated encounter notes This section contains the clinical notes associated to the Encounter. Date/Time Encounter Note(s) Provider Source Aug 11, 2024 03:29 PM SOCIAL WORK E & M NOTE: LOCAL TITLE: SW BRIEF ASSESSMENT ST STANDARD TITLE: SOCIAL WORK E & M NOTE DATE OF NOTE: AUG 11, 2024@15:29 ENTRY DATE: AUG 11, 2024@15:30:26 AUTHOR: BERNARD ELIZABETH COSIGNER: URGENCY: STATUS: COMPLETED [facility] Inpatient ADM Psychosocial Assessment admitted to [facility]2 from [facility] Name: CHET WALKER Address: [address] [place] [id number] AGE: 74 SEX: MALE RACE: DECLINED TO ANSWER Shinto/Spirituality: Catholic MARITAL STATUS: BRANCH OF SERVICE: [employer] Period of Service: [place] Service Connected: Service Connected: Yes (100%) Rated Disabilities: DS - Disabilities Eligibility: SERVICE CONNECTED 50% to 100% VERIFIED Total S/C %: 100 PARALYSIS OF ANTERIOR CRURAL NERVE 20% S/C PARALYSIS OF SCIATIC NERVE 20% S/C PARALYSIS OF ANTERIOR CRURAL NERVE 20% S/C KNEE PROSTHESIS 30% S/C PARALYSIS OF SCIATIC NERVE 20% S/C DIABETES MELLITUS 20% S/C PARALYSIS OF ALL RADICULAR NERVE GROUPS 30% S/C PARALYSIS OF ALL RADICULAR NERVE GROUPS 40% S/C INCOME: SS and VA Compensation TOTAL MONTHLY INCOME: [place] declined to answer but stated it is adequate INSURANCE: Medicare part A FAMILY/NOK/WEAVER WIRE LOOM: Primary NOK: DENISEEDELMIRA Relation: SON [address] [place], [place] [address] Secondary NOK: MAYCO WALKERJulián Relation: BROTHER <street address not available> [place], [place] ADM DX: Last Admission: 08/11/24 2:02:17 pm Admit Dx: CAD S/P CABG COGNITIVE BEHAVIORAL STATUS: A&Ox4 PATIENT COPING WITH DIAGNOSIS: Yes DOES PATIENT HAVE ADEQUATE FAMILY/SOCIAL SUPPORT: Yes PATIENT DRIVES: Yes SPOUSE/SIGNIFICANT OTHER DRIVES: N/A DURABLE MEDICAL EQUIPMENT IN HOME: COMMUNITY RESOURCES UTILIZED PRIOR TO ADMISSION: None ADVANCED DIRECTIVE: Private document requested to be provided SURROGATE DECISION MAKER: None ORGAN DONATION: No SOCIAL WORK ASSESSMENT Progeny: 1 Education: Highschool degree Employment Status: 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 Substance Abuse/Dependence: None ETOH Abuse: Less than once a month Tobacco Use: None Living Arrangement: [place]'s son lives with him in a home he owns Stairs to Primary Entrance: 3 Prior to reason(s) for current admission, the reports his/her level of functioning as: ADLs: Independent--0 Assist--1 Dependent--2 --- Bathing: (0) --- Feeding Self: (0) --- Transferring: (0) --- Grooming: (0) --- Dressing: (0) --- Toileting: (0) --- Walking: (0) --- IADLs: Independent--0 Assist--1 Dependent--2 --- Using Telephone: (0) --- Driving: (0) --- Shopping: (0) --- Preparing Meals: (0) --- Housework: (0) --- Laundry: (0) --- Taking Medication: (0) --- Managing Finances: (0) --- DISCHARGE PLANS MADE WITH: Bob. [place]'s goal is to return to 's home in the community. PATIENT MAY NEED THE FOLLOWING SERVICES UPON DISCHARGE: No SW needs identified at this time. DISCHARGE TRANSPORTATION NEEDS WILL BE MET BY: [place] states that he is undecided. INTERVENTION/PLAN: 1. This freelance writer attended and participated in UR Huddle at which time case was reviewed for admission. 2. A brief chart review was conducted. 3. Advance Directive note was completed. 4. SW encouraged to alert SW or staff if any future social supports are needed. 5. MDS will be completed as scheduled. 6. environmental services supervisor will continue to be provided as needs are identified by and staff. 7. SW provided with the day, time, and location of the IDT meetings. SW notified that can choose to attend IDT meetings. Minutes spent with : 30 Location: bedside // KG Gomez, DEVULCANIZER CHARGER Shoe Turner Signed: 08/11/2024 16:12 BERNARD ELIZABETH [facility] Aug 11, 2024 03:29 PM ADVANCE DIRECTIVE NOTIFICATION AND SCREENING: LOCAL TITLE: ADVANCE DIRECTIVE NOTIFICATION AND SCREENING STANDARD TITLE: ADVANCE DIRECTIVE NOTIFICATION AND SCREENING DATE OF NOTE: AUG 11, 2024@15:29 ENTRY DATE: AUG 11, 2024@16:14:35 AUTHOR: BERNARD ELIZABETH EXP COSIGNER: URGENCY: STATUS: COMPLETED ADVANCE DIRECTIVE NOTIFICATION AND SCREENING ADVANCE DIRECTIVE NOTIFICATION: The patient or fulfillment representative was not provided written notification about advance directives because: SW encouraged to bring in a copy of his POA. ADVANCE DIRECTIVE SCREENING: The patient or fulfillment representative says the patient has an advance directive. It is not on file in the patient's electronic health record. Recommended that the patient or fulfillment representative provide ME with a copy. Inquired if they want more information or assistance in completing a new advance directive form, and directed them to that assistance, if desired. Alcohol Use Screen (AUDIT-C): Alcohol Screen: SCREEN FOR ALCOHOL (AUDIT-C) An alcohol screening test (AUDIT-C) was negative (score=1). 1. How often did you have a drink containing alcohol in the past year? Consider a drink to be a 12 ounce can or bottle of regular beer, 8 ounces of malt liquor, a 5 ounce glass of table wine, or a 1.5 ounce shot of liquor (like scotch, gin, or vodka). Monthly or less 2. How many drinks containing alcohol did you have on a typical day when you were drinking in the past year? One or two drinks 3. How often did you have six or more drinks on one occasion in the past year? Never Minutes with : 5 Location: [facility] // KG Gomez, DEVULCANIZER CHARGER Shoe Turner Signed: 08/11/2024 16:16 BERNARD ELIZABETH [facility]
--- OUTSIDE RECORDS SUMMARY | 2024-11-17 04:00 | XMS_ITS ---
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 Date/Time Encounter Type Encounter Description Reason Pro vider Source Aug 11, 2024 05:10 PM Inpatient Visit DAILY HOSPITALIZATION DATA [facility] Encounter Template Text not used by [place] [...] 20 appointments. The data comes from all [facility]. Appointment Date/Time Appointment Type Appointme nt Facility Name Aug 24, 2024 10:00 AM AMBULATORY - MEDICINE [facility] Aug 24, 2024 10:30 AM AMBULATORY - MEDICINE [facility] Aug 30, 2024 09:30 AM AMBULATORY MEDICINE [facility] Aug 31, 2024 01:00 PM AMBULATORY - SUR[facility]ERY [facility] Sep 21, 2024 01:30 PM AMBULATORY - MEDICINE [facility] Sep 22, 2024 11:00 AM AMBULATORY - MEDICINE [facility] Sep 29, 2024 12:30 PM AMBULATORY - MEDICINE [facility] Oct 02, 2024 09:30 AM [facility]ORY - MEDICINE [facility] Nov 20, 2024 10:30 AM AMBULATORY - SURGERY [facility] Nov 21, 2024 10:00 AM AMBULATORY - NONE [facility] Dec 11, 2024 10:30 AM AMBULATORY - MEDICINE [facility] Active, Pending, and Scheduled Orders This section includes a listing of several types of active, pending, and scheduled orders, including clinic medications orders, diagnostic test orders, procedure orders and consult orders; where the start date of the order is 45 days before the date of the Encounter or 45 days after the date of theEncounter. The data comes from all [facility]. Test Date/Time Test Type Test Details Facility Name Aug 02, 2024 12:00 AM Laboratory - Chemistry Order CBC BLOOD STAT SP [facility] Aug 02, 2024 12:00 AM Laboratory - Chemistry Order COMPREHENSIVE METABOLIC PANEL GREEN LI/HEP BLD/PLAS PLASMA SP [facility] Aug 17, 2024 03:47 PM Consult Order [facility] Cons Bedside [facility] Lab Results: +/- 30 [...] Range Comment Aug 23, 2024 08:21 AM [facility] MAGNESIUM Specimen Type: PLASMA No comment entered. Ordering Provider: SILVIA REDDY Report Released Date/Time: Aug 22, 2024 11:26 AM Reporting Lab: [facility] [facility] [address] Performing Lab: [facility] [facility] [address] MAGNESIUM 1.8 mg/dL 1.6-2.6 Aug 23, 2024 08:21 AM [facility] CBC Specimen Type: BLOOD No comment entered. Ordering Provider: SILVIA REDDY Report Released Date/Time: Aug 22, 2024 11:19 AM Reporting Lab: [facility] [facility] [address] Performing Lab: [facility] [facility] [address] WBC 4.0 10*3/uL 3.6-11.2 RBC 3.65 10*6/uL [...] 0.00-0.20 Aug 23, 2024 05:12 AM [facility] GLUCOSE,BLOOD-poct (STL) Specimen Type: BLOOD Comment: Test Performed by: [id number] Meter #: [id number] Ordering Provider: SILVIA REDDY Report Released Date/Time: Aug 23, 2024 05:23 AM Reporting Lab: [facility] [facility] [address] Performing Lab: [facility] #[address] [facility] [address] GLUCOSE,BLOOD- poct (STL) 99 mg/dL 72-99 Aug 23, 2024 02:45 AM [facility] OCCULT BLOOD FIT X1 SCREEN Specimen Type: FECES No comment entered. Ordering Provider: SILVIA REDDY Report Released Date/Time: Aug 22, 2024 11:23 AM Reporting Lab: [address] [address] Performing Lab: [address] [address] OCCULT BLOOD (FIT) #1 OF 1 Negative Negative Aug 22, 2024 07:30 PM [facility] OCCULT BLOOD FIT X1 SCREEN Specimen Type: FECES No comment entered. Ordering Provider: SILVIA REDDY Report Released Date/Time: Aug 22, 2024 11:23 AM Reporting Lab: [address] [address] Performing Lab: [address] [address] OCCULT BLOOD (FIT) #1 OF 1 Negative Negative Aug 22, 2024 06:15 PM [facility] OCCULT BLOOD FIT X1 SCREEN Specimen Type: FECES No comment entered. Ordering Provider: SILVIA REDDY Report Released Date/Time: Aug 22, 2024 11:23 AM Reporting Lab: [address] [address] Performing Lab: [facility] [address] [facility] [address] OCCULT BLOOD (FIT) #1 OF 1 Negative Negative Aug 22, 2024 04:24 PM [facility] GLUCOSE,BLOOD-poct (STL) Specimen Type: BLOOD Comment: Test Performed by: [id number] Meter #: [id number] Ordering Provider: SILVIA REDDY Report Released Date/Time: Aug 22, 2024 04:36 PM Reporting Lab: [facility] [facility] [address] Performing Lab: [facility] #[address] [facility] [address] GLUCOSE,BLOOD- poct (STL) 176 mg/dL H -Aug 22, 2024 04:23 PM [facility] GLUCOSE,BLOOD-poct (STL) Specimen Type: BLOOD Comment: Test Performed by: [id number] Meter #: [id number] Ordering Provider: SILVIA REDDY Report Released Date/Time: Aug 22, 2024 04:36 PM Reporting Lab: [facility] [facility] [address] Performing Lab: [facility] [facility] [address] GLUCOSE,BLOOD- poct (STL) 221 mg/dL H 72-Aug 22, 2024 11:15 AM [facility] GLUCOSE,BLOOD-poct (STL) Specimen Type: BLOOD Comment: Test Performed by: [id number] Meter #: [id number] Ordering Provider: SILVIA REDDY Report Released Date/Time: Aug 22, 2024 11:27 AM Reporting Lab: [facility] [facility] [address] Performing Lab: [facility] [facility] [address] GLUCOSE,BLOOD- poct (STL) 140 mg/dL H 72-Aug 22, 2024 08:03 AM [facility] FERRITIN Specimen Type: SERUM No comment entered. Ordering Provider: JUDIT PERKINS Report Released Date/Time: Aug 18, 2024 11:01 AM Reporting Lab: [facility] [address] [facility] [address] Performing Lab: [facility] [address] [facility] [address] FERRITIN 79.50 ng/mL 22-275 Aug 22, 2024 08:03 AM [facility] IRON/TIBC PROFILE Specimen Type: SERUM No comment entered. Ordering Provider: JUDIT PERKINS Report Released Date/Time: Aug 18, 2024 11:01 AM Reporting Lab: [address] [address] Performing Lab: [address] [address] TIBC 283 ug/dL 250-450 TRANSFERRIN 226 mg/dL 163-344 IRON SATURATION 7 L 20-50 IRON 19 ug/dL L 65-175 Aug 22, 2024 08:03 AM [facility] B12 Specimen Type: SERUM No comment entered. Ordering Provider: JUDIT PERKINS Report Released Date/Time: Aug 18, 2024 11:01 AM Reporting Lab: [facility] [facility] [address] Performing Lab: [facility] #[address] [facility] [address] B12 631 pg/mL 213-816 Aug 22, 2024 08:03 AM [facility] COMPREHENSIVE METABOLIC PANEL Specimen Type: PLASMA Comment: No hemolysis noted. Ordering Provider: SILVIA REDDY Report Released Date/Time: Aug 17, 2024 01:18 PM Reporting Lab: [facility] [address] [facility] [address] Performing Lab: [address] [address] CREATININE 0.80 mg/dL 0.7-1.3 UREA NITROGEN 9.7 [...] 94.0 >60 Aug 22, 2024 08:03 AM [facility] CBC Specimen Type: BLOOD No comment entered. Ordering Provider: SILVIA REDDY Report Released Date/Time: Aug 17, 2024 01:18 PM Reporting Lab: [facility] [facility] [address] Performing Lab: [facility] [facility] [address] WBC 3.5 10*3/uL L 3.6-11.2 RBC 3.23 [...] NRBC% 0 Aug 22, 2024 05:03 AM [facility] GLUCOSE,BLOOD-poct (STL) Specimen Type: BLOOD Comment: Test Performed by: [id number] Meter #: [id number] Ordering Provider: SILVIA REDDY Report Released Date/Time: Aug 22, 2024 06:17 AM Reporting Lab: [facility] #[address] [facility] [address] Performing Lab: [facility] #[address] [facility] [address] GLUCOSE,BLOOD- poct (STL) 170 mg/dL H 72-Aug 21, 2024 04:32 PM [facility] GLUCOSE,BLOOD-poct (STL) Specimen Type: BLOOD Comment: Test Performed by: [id number] Meter #: [id number] Ordering Provider: SILVIA REDDY Report Released Date/Time: Aug 21, 2024 04:49 PM Reporting Lab: [facility] [facility] [address] Performing Lab: [facility] #[address] [facility] [address] GLUCOSE,BLOOD- poct (STL) 169 mg/dL H -99 Aug 21, 2024 11:53 AM [facility] GLUCOSE,BLOOD-poct (STL) Specimen Type: BLOOD Comment: Test Performed by: [id number] Meter #: [id number] Ordering Provider: SILVIA REDDY Report Released Date/Time: Aug 21, 2024 12:11 PM Reporting Lab: [facility] #[address] [facility] [address] Performing Lab: [facility] [address] GLUCOSE,BLOOD- poct (STL) 149 mg/dL H 72-99 Aug 21, 2024 05:10 AM [facility] GLUCOSE,BLOOD-poct (STL) Specimen Type: BLOOD Comment: Test Performed by: [id number] Meter #: [id number] Ordering Provider: SILVIA REDDY Report Released Date/Time: Aug 21, 2024 05:27 AM Reporting Lab: [facility] [place] [address] Performing Lab: [facility] #[address] [place] [id number] GLUCOSE,BLOOD- poct (STL) 118 mg/dL H 72-99 Aug 20, 2024 04:38 PM [facility] GLUCOSE,BLOOD-poct (STL) Specimen Type: BLOOD Comment: Test Performed by: [id number] Meter #: [id number] Ordering Provider: SILVIA REDDY Report Released Date/Time: Aug 21, 2024 01:55 AM Reporting Lab: [facility] #[address] [place] [address] Performing Lab: [facility] #[address] [place] [address] GLUCOSE,BLOOD- poct (STL) 169 mg/dL H 72-Aug 20, 2024 04:36 PM [facility] GLUCOSE,BLOOD-poct (STL) Specimen Type: BLOOD Comment: Test Performed by: [id number] Meter #: [id number] Ordering Provider: SILVIA REDDY Report Released Date/Time: Aug 21, 2024 01:55 AM Reporting Lab: [facility] [place] [address] Performing Lab: [facility] [place] [address] GLUCOSE,BLOOD- poct (STL) 395 mg/dL H 72-99 Aug 20, 2024 11:45 AM [facility] GLUCOSE,BLOOD-poct (STL) Specimen Type: BLOOD Comment: Test Performed by: [id number] Meter #: [id number] Ordering Provider: SILVIA REDDY Report Released Date/Time: Aug 20, 2024 11:56 AM Reporting Lab: [facility] [facility] [address] Performing Lab: [facility] #[address] [facility] [address] GLUCOSE,BLOOD- poct (STL) 169 mg/dL H 72-Aug 20, 2024 05:06 AM [facility] GLUCOSE,BLOOD-poct (STL) Specimen Type: BLOOD Comment: Test Performed by: [id number] Meter #: [id number] Ordering Provider: SILVIA REDDY Report Released Date/Time: Aug 20, 2024 06:05 AM Reporting Lab: [facility] #[address] [facility] [address] Performing Lab: [facility] #[address] [facility] [address] GLUCOSE,BLOOD- poct (STL) 115 mg/dL H 72-Aug 19, 2024 04:23 PM [facility] GLUCOSE,BLOOD-poct (STL) Specimen Type: BLOOD Comment: Test Performed by: [id number] Meter #: [id number] Ordering Provider: SILVIA REDDY Report Released Date/Time: Aug 19, 2024 05:54 PM Reporting Lab: [facility] #[address] [facility] [address] Performing Lab: [facility] #[address] [facility] [address] GLUCOSE,BLOOD- poct (STL) 137 mg/dL H 72-99 Aug 19, 2024 11:28 AM [facility] GLUCOSE,BLOOD-poct (STL) Specimen Type: BLOOD Comment: Test Performed by: [id number] Meter #: [id number] Ordering Provider: SILVIA REDDY Report Released Date/Time: Aug 19, 2024 11:51 AM Reporting Lab: [facility] #[address] [facility] [address] Performing Lab: [facility] #[address] [facility] [address] GLUCOSE,BLOOD- poct (STL) 190 mg/dL H 72-99 Aug 19, 2024 05:21 AM [facility] GLUCOSE,BLOOD-poct (STL) Specimen Type: BLOOD Comment: Test Performed by: [id number] Meter #: [id number] Ordering Provider: SILVIA REDDY Report Released Date/Time: Aug 19, 2024 05:56 AM Reporting Lab: [facility] #[address] [facility] [address] Performing Lab: [facility] #[address] [facility] [address] GLUCOSE,BLOOD- poct (STL) 130 mg/dL H Aug 18, 2024 04:49 PM [facility] GLUCOSE,BLOOD-poct (STL) Specimen Type: BLOOD Comment: Test Performed by: [id number] Meter #: [id number] Ordering Provider: SILVIA REDDY Report Released Date/Time: Aug 18, 2024 05:01 PM Reporting Lab: [facility] [facility] [address] Performing Lab: [facility] #[address] [facility] [address] GLUCOSE,BLOOD- poct (STL) 129 mg/dL H Aug 18, 2024 11:23 AM [facility] GLUCOSE,BLOOD-poct (STL) Specimen Type: BLOOD Comment: Test Performed by: [id number] Meter #: [id number] Ordering Provider: SILVIA REDDY Report Released Date/Time: Aug 18, 2024 11:41 AM Reporting Lab: [facility] #[address] [facility] [address] Performing Lab: [facility] #[address] [facility] [address] GLUCOSE,BLOOD- poct (STL) 180 mg/dL H Aug 18, 2024 05:08 AM [facility] GLUCOSE,BLOOD-poct (STL) Specimen Type: BLOOD Comment: Test Performed by: [id number] Meter #: [id number] Ordering Provider: SILVIA REDDY Report Released Date/Time: Aug 18, 2024 05:31 AM Reporting Lab: [facility] [place] [address] Performing Lab: [facility] #[address] [facility] [address] GLUCOSE,BLOOD- poct (STL) 127 mg/dL H -Aug 17, 2024 07:32 PM [facility] GLUCOSE,BLOOD-poct (STL) Specimen Type: BLOOD Comment: Test Performed by: [id number] Meter #: [id number] Ordering Provider: SILVIA REDDY Report Released Date/Time: Aug 17, 2024 07:59 PM Reporting Lab: [facility]1 [place] [address] Performing Lab: [facility] [place] [address] GLUCOSE,BLOOD- poct (STL) 154 mg/dL H -Aug 17, 2024 04:24 PM [facility] GLUCOSE,BLOOD-poct (STL) Specimen Type: BLOOD Comment: Test Performed by: [id number] Meter #: [id number] Ordering Provider: SILVIA REDDY Report Released Date/Time: Aug 17, 2024 04:35 PM Reporting Lab: [facility]1 [place] [address] Performing Lab: [facility] [place] [address] GLUCOSE,BLOOD- poct (STL) 178 mg/dL H -Aug 17, 2024 05:09 AM [facility] GLUCOSE,BLOOD-poct (STL) Specimen Type: BLOOD Comment: Test Performed by: [id number] Meter #: [id number] Ordering Provider: SILVIA REDDY Report Released Date/Time: Aug 17, 2024 05:54 AM Reporting Lab: [facility] [facility] [address] Performing Lab: [facility] #[address] [facility] [address] GLUCOSE,BLOOD- poct (STL) 124 mg/dL H 72-Aug 16, 2024 07:40 PM [facility] GLUCOSE,BLOOD-poct (STL) Specimen Type: BLOOD Comment: Test Performed by: [id number] Meter #: [id number] Ordering Provider: SILVIA REDDY Report Released Date/Time: Aug 16, 2024 08:28 PM Reporting Lab: [facility] #[address] [facility] [address] Performing Lab: [facility] #[address] [facility] [address] GLUCOSE,BLOOD- poct (STL) 144 mg/dL H -Aug 16, 2024 04:19 PM [facility] GLUCOSE,BLOOD-poct (STL) Specimen Type: BLOOD Comment: Test Performed by: [id number] Meter #: [id number] Ordering Provider: SILVIA REDDY Report Released Date/Time: Aug 16, 2024 04:45 PM Reporting Lab: [facility] #[address] [facility] [address] Performing Lab: [facility] #[address] [facility] [address] GLUCOSE,BLOOD- poct (STL) 138 mg/dL H 72-Aug 16, 2024 11:52 AM [facility] GLUCOSE,BLOOD-poct (STL) Specimen Type: BLOOD Comment: Test Performed by: [id number] Meter #: [id number] Ordering Provider: SILVIA REDDY Report Released Date/Time: Aug 16, 2024 12:04 PM Reporting Lab: [facility] #[address] [facility] [address] Performing Lab: [facility] #[address] [facility] [address] GLUCOSE,BLOOD- poct (STL) 135 mg/dL H 72-99 Aug 16, 2024 05:24 AM [facility] GLUCOSE,BLOOD-poct (STL) Specimen Type: BLOOD Comment: Test Performed by: [id number] Meter #: [id number] Ordering Provider: SILVIA REDDY Report Released Date/Time: Aug 16, 2024 05:38 AM Reporting Lab: [facility] #[address] [facility] [address] Performing Lab: [facility] #[address] [facility] [address] GLUCOSE,BLOOD- poct (STL) 151 mg/dL H Aug 15, 2024 07:31 PM [facility] GLUCOSE,BLOOD-poct (STL) Specimen Type: BLOOD Comment: Test Performed by: [id number] Meter #: [id number] Ordering Provider: SILVIA REDDY Report Released Date/Time: Aug 15, 2024 08:07 PM Reporting Lab: [facility] [facility] [address] Performing Lab: [facility] #[address] [facility] [address] GLUCOSE,BLOOD- poct (STL) 173 mg/dL H Aug 15, 2024 04:18 PM [facility] GLUCOSE,BLOOD-poct (STL) Specimen Type: BLOOD Comment: Test Performed by: [id number] Meter #: [id number] Ordering Provider: SILVIA REDDY Report Released Date/Time: Aug 15, 2024 04:59 PM Reporting Lab: [facility] [facility] [address] Performing Lab: [facility] #[address] [facility] [address] GLUCOSE,BLOOD- poct (STL) 136 mg/dL H Aug 15, 2024 04:16 PM [facility] GLUCOSE,BLOOD-poct (STL) Specimen Type: BLOOD Comment: Test Performed by: [id number] Meter #: [id number] Ordering Provider: SILVIA REDDY Report Released Date/Time: Aug 15, 2024 04:59 PM Reporting Lab: [facility] [place] [address] Performing Lab: [facility] [facility] [address] GLUCOSE,BLOOD- poct (STL) 194 mg/dL H 72-Aug 15, 2024 11:39 AM [facility] GLUCOSE,BLOOD-poct (STL) Specimen Type: BLOOD Comment: Test Performed by: [id number] Meter #: [id number] Ordering Provider: SILVIA REDDY Report Released Date/Time: Aug 15, 2024 12:00 PM Reporting Lab: [facility] [place] [address] Performing Lab: [facility] [place] [address] GLUCOSE,BLOOD- poct (STL) 127 mg/dL H -Aug 15, 2024 05:07 AM [facility] GLUCOSE,BLOOD-poct (STL) Specimen Type: BLOOD Comment: Test Performed by: [id number] Meter #: [id number] Ordering Provider: SILVIA REDDY Report Released Date/Time: Aug 15, 2024 06:14 AM Reporting Lab: [facility] [place] [address] Performing Lab: [facility] [place] [address] GLUCOSE,BLOOD- poct (STL) 151 mg/dL H -Aug 14, 2024 04:22 PM [facility] GLUCOSE,BLOOD-poct (STL) Specimen Type: BLOOD Comment: Test Performed by: [id number] Meter #: [id number] Ordering Provider: SILVIA REDDY Report Released Date/Time: Aug 14, 2024 04:52 PM Reporting Lab: [facility] [facility] [address] Performing Lab: [facility] [facility] [address] GLUCOSE,BLOOD- poct (STL) 129 mg/dL H 72-99 Aug 14, 2024 11:21 AM [facility] GLUCOSE,BLOOD-poct (STL) Specimen Type: BLOOD Comment: Test Performed by: [id number] Meter #: [id number] Ordering Provider: SILVIA REDDY Report Released Date/Time: Aug 14, 2024 11:37 AM Reporting Lab: [facility] [facility] [address] Performing Lab: [facility] #[address] [facility] [address] GLUCOSE,BLOOD- poct (STL) 135 mg/dL H 72-Aug 14, 2024 06:59 AM [facility] QUANTIFERON-TB,4 TUBE Specimen Type: BLOOD Comment: [...] For additional information, please refer to http://education. [employer]/faq/FYF123 (This link is being provided for information/ educational purposes only.) Test Performed by [employer] [facility], [address] [place] [address] Tommie Garcia M.D., Ph.D., Director of Laboratories , [facility] [id number] Ordering Provider: SILVIA REDDY Report Released Date/Time: Aug 11, 2024 03:58 PM Reporting Lab: [facility] [address] [facility] [address] Performing Lab: [facility] [id number] [place] [address] .NIL - QUANTIFERON 0.04 [IU]/mL .MITOGEN-NIL 0.39 [IU]/mL .QUANTIFERON INDETERMINATE NEGATIVE .TB1-NIL <0.00 [IU]/mL .TB2-NIL <0.00 [IU]/mL Aug 14, 2024 06:59 AM [facility] MAGNESIUM Specimen Type: PLASMA Comment: No hemolysis noted. Ordering Provider: SILVIA REDDY Report Released Date/Time: Aug 11, 2024 03:58 PM Reporting Lab: [facility] [place] [id number] Performing Lab: [facility] [facility] [address] MAGNESIUM 1.9 mg/dL 1.6-2.6 Aug 14, 2024 06:59 AM [facility] B12 Specimen Type: SERUM No comment entered. Ordering Provider: SILVIA REDDY Report Released Date/Time: Aug 11, 2024 03:58 PM Reporting Lab: [facility] [facility] [address] Performing Lab: [facility] [facility] [address] B12 757 pg/mL [phone] Aug 14, 2024 06:59 AM [facility] FOLATE (STL-MA) Specimen Type: SERUM No comment entered. Ordering Provider: SILVIA REDDY Report Released Date/Time: Aug 11, 2024 03:58 PM Reporting Lab: [facility] [facility] [address] Performing Lab: [facility] [facility] [address] FOLATE (STL-MA) 6.8 ng/mL L 7-20 Aug 14, 2024 06:59 AM [facility] VITAMIN D, 25-HYDROXY Specimen Type: SERUM No comment entered. Ordering Provider: SILVIA REDDY Report Released Date/Time: Aug 11, 2024 03:58 PM Reporting Lab: [facility] [facility] [address] Performing Lab: [facility] [facility] [address] VITAMIN D, 25-HYDROXY 8.9 ng/mL L 30-96 Aug 14, 2024 06:59 AM [facility] COMPREHENSIVE METABOLIC PANEL Specimen Type: PLASMA Comment: No hemolysis noted. Ordering Provider: SILVIA REDDY Report Released Date/Time: Aug 11, 2024 03:58 PM Reporting Lab: [facility] [facility] [address] Performing Lab: [facility] #[address] [facility] [address] CREATININE 0.75 mg/dL 0.70-1.30 UREA NITROGEN 13.6 [...] 2024 06:59 AM [facility] CBC Specimen Type: BLOOD No comment entered. Ordering Provider: SILVIA REDDY Report Released Date/Time: Aug 11, 2024 03:58 PM Reporting Lab: [facility] [facility] [address] Performing Lab: [facility] [facility] [address] WBC 4.1 10*3/uL 3.6-11.2 RBC 3.20 10*6/uL [...] 2024 05:08 AM [facility] GLUCOSE,BLOOD-poct (STL) Specimen Type: BLOOD Comment: Test Performed by: [id number] Meter #: [id number] Ordering Provider: SILVIA REDDY Report Released Date/Time: Aug 14, 2024 05:52 AM Reporting Lab: [facility] [facility] [address] Performing Lab: [facility] [facility] [address] GLUCOSE,BLOOD- poct (STL) 135 mg/dL H 72-99 Aug 13, 2024 04:27 PM [facility] GLUCOSE,BLOOD-poct (STL) Specimen Type: BLOOD Comment: Test Performed by: [id number] Meter #: [id number] Ordering Provider: SILVIA REDDY Report Released Date/Time: Aug 13, 2024 04:41 PM Reporting Lab: [facility] #[address] [facility] [address] Performing Lab: [facility] [address] GLUCOSE,BLOOD- poct (STL) 181 mg/dL H -Aug 13, 2024 11:33 AM [facility] GLUCOSE,BLOOD-poct (STL) Specimen Type: BLOOD Comment: Test Performed by: [id number] Meter #: [id number] Ordering Provider: SILVIA REDDY Report Released Date/Time: Aug 13, 2024 03:55 PM Reporting Lab: [facility] [address] Performing Lab: [facility] [place] [address] GLUCOSE,BLOOD- poct (STL) 140 mg/dL H Aug 13, 2024 05:54 AM [facility] GLUCOSE,BLOOD-poct (STL) Specimen Type: BLOOD Comment: Test Performed by: [id number] Meter #: [id number] Ordering Provider: SILVIA REDDY Report Released Date/Time: Aug 13, 2024 06:20 AM Reporting Lab: [facility] #[address] [facility] [address] Performing Lab: [facility] #[address] [facility] [address] GLUCOSE,BLOOD- poct (STL) 112 mg/dL H Aug 12, 2024 04:35 PM [facility] GLUCOSE,BLOOD-poct (STL) Specimen Type: BLOOD Comment: Test Performed by: [id number] Meter #: [id number] Ordering Provider: SILVIA REDDY Report Released Date/Time: Aug 12, 2024 04:47 PM Reporting Lab: [facility] [facility] [address] Performing Lab: [facility] #[address] [facility] [address] GLUCOSE,BLOOD- poct (STL) 128 mg/dL H 72-99 Aug 12, 2024 11:26 AM [facility] GLUCOSE,BLOOD-poct (STL) Specimen Type: BLOOD Comment: Test Performed by: [id number] Meter #: [id number] Ordering Provider: SILVIA REDDY Report Released Date/Time: Aug 12, 2024 11:45 AM Reporting Lab: [facility] #[address] [facility] [address] Performing Lab: [facility]1 [place] [address] GLUCOSE,BLOOD- poct (STL) 188 mg/dL H -Aug 12, 2024 06:13 AM [facility] GLUCOSE,BLOOD-poct (STL) Specimen Type: BLOOD Comment: Test Performed by: [id number] Meter #: [id number] Ordering Provider: SILVIA REDDY Report Released Date/Time: Aug 12, 2024 06:25 AM Reporting Lab: [facility] #[address] [facility] [address] Performing Lab: [facility] #[address] [facility] [address] GLUCOSE,BLOOD- poct (STL) 116 mg/dL H 72-99 Aug 11, 2024 04:10 PM [facility] GLUCOSE,BLOOD-poct (STL) Specimen Type: BLOOD Comment: Test Performed by: [id number] Meter #: [id number] Ordering Provider: SILVIA REDDY Report Released Date/Time: Aug 11, 2024 04:27 PM Reporting Lab: [facility]1 [place] [address] Performing Lab: [facility] [facility] [address] GLUCOSE,BLOOD- poct (STL) 184 mg/dL H 72-99 Aug 11, 2024 01:44 PM [facility] MRSA SURVL NARES DNA Specimen Type: [...] Aug 11, 2024 02:03 PM Reporting Lab: [address] [address] Performing Lab: [address] [address] MRSA SURVL NARES DNA Negative Negative Jul 20, 2024 11:18 AM [facility] APTT Specimen Type: PLASMA No comment entered. Ordering Provider: MANUEL BAIRD Report Released Date/Time: Jul 19, 2024 04:00 PM Reporting Lab: [address] [address] Performing Lab: [address] [address] APTT 32.1 s 26.7-39.9 Jul 20, 2024 11:18 AM [facility] PT/INR NEW ([place]) Specimen Type: PLASMA No comment entered. Ordering Provider: MANUEL BAIRD Report Released Date/Time: Jul 19, 2024 04:00 PM Reporting Lab: [address] [address] Performing Lab: [address] [address] PROTIME 14.4 s H 9.4-12.5 INR VALUE 1.3 {INR} Jul 20, 2024 11:18 AM [facility] CBC Specimen Type: BLOOD No comment entered. Ordering Provider: MANUEL BAIRD Report Released Date/Time: Jul 19, 2024 04:00 PM Reporting Lab: [facility] [address] [facility] [address] Performing Lab: [address] [address] WBC 4.7 10*3/uL 3.6-11.2 RBC 4.86 10*6/uL [...] 1.6 1.0-7.0 Jul 17, 2024 08:02 AM [facility] BASIC METABOLIC PANEL Specimen Type: PLASMA Comment: No hemolysis noted. Ordering Provider: MARY SERNA Report Released Date/Time: Jun 07, 2024 01:43 PM Reporting Lab: [facility] [address] [place] [address] Performing Lab: [address] [address] CREATININE 0.85 mg/dL 0.7-1.3 UREA NITROGEN 15.2 [...] 08:19 PM 98.1 74 139/77 18 96 [facility] N Aug 11, 2024 08:15 PM 0 [facility] Aug 11, 2024 02:26 PM 211.1 30 [facility] N Aug 11, 2024 02:22 PM 97.6 124/77 18 [facility] N Advance Directives: All historical [...] ADVANCE DIRECTIVE DISCUSSION ERICK BARDALES [facility]
--- OUTSIDE RECORDS SUMMARY | 2024-11-17 04:00 | XMS_ITS ---
[place] DAILY HOSPITALIZATION DATA [facility] Encounter Summary Created on: November 16, 2024 CHET WALKER : 1950 Sex: Male Author Name [facility] [place] Organization [facility] [place] Address [address] [place] [address] Care Team Providers Care Sheriffs Name Role Phone MANUEL BAIRD Primary Care [...] PART A Apr 08, 2017 PART A [id number] ASHLEY WALKER PATIENT Selected Encounter This section includes the information on record at [place] for the Encounter. Date/Time Encounter Type Encounter Description Reason Pro vider Source Aug 11, 2024 05:21 PM Inpatient Visit DAILY HOSPITALIZATION DATA [facility] Encounter Template Text not used by PA [...] 24, 2024 10:00 AM AMBULATORY - MEDICINE [facility] Aug 24, 2024 10:30 AM AMBULATORY - MEDICINE [facility] Aug 30, 2024 09:30 AM AMBULATORY MEDICINE [facility] Aug 31, 2024 01:00 PM AMBULATORY - SURGERY [facility] Sep 21, 2024 01:30 PM AMBULATORY - MEDICINE [facility] Sep 22, 2024 11:00 AM AMBULATORY - MEDICINE [facility] Sep 29, 2024 12:30 PM AMBULATORY - MEDICINE [facility] Oct 02, 2024 09:30 AM AMBULATORY - MEDICINE [facility] Nov 20, 2024 10:30 AM AMBULATORY - SURGERY [facility] Nov 21, 2024 10:00 AM AMBULATORY - NONE [facility] Dec 11, 2024 10:30 AM AMBULATORY - MEDICINE [facility] Active, Pending, and Scheduled Orders This section includes a listing of several types of active, pending, and scheduled orders, including clinic medications orders, diagnostic test orders, procedure orders and consult orders; where the start date of the order is 45 days before the date of the Encounter or 45 days after the date of theEncounter. The data comes from all [facility]. Test Date/Time Test Type Test Details Facility Name Aug 02, 2024 12:00 AM Laboratory - Chemistry Order CBC BLOOD STAT SP [facility] Aug 02, 2024 12:00 AM Laboratory - Chemistry Order COMPREHENSIVE METABOLIC PANEL GREEN LI/HEP BLD/PLAS PLASMA SP [facility] Aug 17, 2024 03:47 PM Consult Order [facility] Cons Bedside [facility] Lab Results: +/- 30 days of the [...] Range Comment Aug 23, 2024 08:21 AM [facility] MAGNESIUM Specimen Type: PLASMA No comment entered. Ordering Provider: SILVIA REDDY Report Released Date/Time: Aug 22, 2024 11:26 AM Reporting Lab: [facility] [address] Performing Lab: [facility] [address] MAGNESIUM 1.8 mg/dL 1.6-2.6 Aug 23, 2024 08:21 AM [facility] CBC Specimen Type: BLOOD No comment entered. Ordering Provider: SILVIA REDDY Report Released Date/Time: Aug 22, 2024 11:19 AM Reporting Lab: [facility] [address] Performing Lab: [facility] [address] WBC 4.0 10*3/uL 3.6-11.2 RBC 3.65 10*6/uL [...] 10*3/uL 0.00-0.20 Aug 23, 2024 05:12 AM [facility] GLUCOSE,BLOOD-poct (STL) Specimen Type: BLOOD Comment: Test Performed by: [id number] Meter #: [id number] Ordering Provider: SILVIA REDDY Report Released Date/Time: Aug 23, 2024 05:23 AM Reporting Lab: [facility] [address] Performing Lab: [facility] [address] [facility] [address] GLUCOSE,BLOOD- poct (STL) 99 mg/dL 72-99 Aug 23, 2024 02:45 AM [facility] OCCULT BLOOD FIT X1 SCREEN Specimen Type: FECES No comment entered. Ordering Provider: SILVIA REDDY Report Released Date/Time: Aug 22, 2024 11:23 AM Reporting Lab: [address] [address] Performing Lab: [address] [address] OCCULT BLOOD (FIT) #1 OF 1 Negative Negative Aug 22, 2024 07:30 PM [facility] OCCULT BLOOD FIT X1 SCREEN Specimen Type: FECES No comment entered. Ordering Provider: SILVIA REDDY Report Released Date/Time: Aug 22, 2024 11:23 AM Reporting Lab: [address] [address] Performing Lab: [address] [address] OCCULT BLOOD (FIT) #1 OF 1 Negative Negative Aug 22, 2024 06:15 PM [facility] OCCULT BLOOD FIT X1 SCREEN Specimen Type: FECES No comment entered. Ordering Provider: SILVIA REDDY Report Released Date/Time: Aug 22, 2024 11:23 AM Reporting Lab: [address] [address] Performing Lab: [facility] [address] [facility] [address] OCCULT BLOOD (FIT) #1 OF 1 Negative Negative Aug 22, 2024 04:24 PM [facility] GLUCOSE,BLOOD-poct (STL) Specimen Type: BLOOD Comment: Test Performed by: [id number] Meter #: [id number] Ordering Provider: SILVIA REDDY Report Released Date/Time: Aug 22, 2024 04:36 PM Reporting Lab: [facility] [address] Performing Lab: [facility] [address] [facility] [address] GLUCOSE,BLOOD- poct (STL) 176 mg/dL H -Aug 22, 2024 04:23 PM [facility] GLUCOSE,BLOOD-poct (STL) Specimen Type: BLOOD Comment: Test Performed by: [id number] Meter #: [id number] Ordering Provider: SILVIA REDDY Report Released Date/Time: Aug 22, 2024 04:36 PM Reporting Lab: [facility] [address] Performing Lab: [facility] [address] GLUCOSE,BLOOD- poct (STL) 221 mg/dL H 72-Aug 22, 2024 11:15 AM [facility] GLUCOSE,BLOOD-poct (STL) Specimen Type: BLOOD Comment: Test Performed by: [id number] Meter #: [id number] Ordering Provider: SILVIA REDDY Report Released Date/Time: Aug 22, 2024 11:27 AM Reporting Lab: [facility] [address] Performing Lab: [facility] [address] GLUCOSE,BLOOD- poct (STL) 140 mg/dL H 72-Aug 22, 2024 08:03 AM [facility] FERRITIN Specimen Type: SERUM No comment entered. Ordering Provider: JUDIT PERKINS Report Released Date/Time: Aug 18, 2024 11:01 AM Reporting Lab: [facility] [address] [facility] [address] Performing Lab: [facility] [address] [place] [address] FERRITIN 79.50 ng/mL 22-275 Aug 22, 2024 08:03 AM [facility] COMPREHENSIVE METABOLIC PANEL Specimen Type: PLASMA Comment: No hemolysis noted. Ordering Provider: SILVIA REDDY Report Released Date/Time: Aug 17, 2024 01:18 PM Reporting Lab: [facility] [address] [facility] [address] Performing Lab: [address] [address] CREATININE 0.80 mg/dL 0.7-1.3 UREA NITROGEN 9.7 [...] 94.0 >60 Aug 22, 2024 08:03 AM [facility] IRON/TIBC PROFILE Specimen Type: SERUM No comment entered. Ordering Provider: JUDIT PERKINS Report Released Date/Time: Aug 18, 2024 11:01 AM Reporting Lab: [facility] [address] [facility] [address] Performing Lab: [facility] [address] [place] [phone] TIBC 283 ug/dL 250-450 TRANSFERRIN 226 mg/dL 163-344 IRON SATURATION 7 L 20-50 IRON 19 ug/dL L 65-175 Aug 22, 2024 08:03 AM [facility] CBC Specimen Type: BLOOD No comment entered. Ordering Provider: SILVIA REDDY Report Released Date/Time: Aug 17, 2024 01:18 PM Reporting Lab: [facility] [address] Performing Lab: [facility] [address] WBC 3.5 10*3/uL L 3.6-11.2 RBC 3.23 [...] NRBC% 0 Aug 22, 2024 08:03 AM [facility] B12 Specimen Type: SERUM No comment entered. Ordering Provider: JUDIT PERKINS Report Released Date/Time: Aug 18, 2024 11:01 AM Reporting Lab: [facility] [address] Performing Lab: [facility] [address] B12 631 pg/mL 213-816 Aug 22, 2024 05:03 AM [facility] GLUCOSE,BLOOD-poct (STL) Specimen Type: BLOOD Comment: Test Performed by: [id number] Meter #: [id number] Ordering Provider: SILVIA REDDY Report Released Date/Time: Aug 22, 2024 06:17 AM Reporting Lab: [facility] [address] [facility] [address] Performing Lab: [facility] [address] [facility] [address] GLUCOSE,BLOOD- poct (STL) 170 mg/dL H 72-Aug 21, 2024 04:32 PM [facility] GLUCOSE,BLOOD-poct (STL) Specimen Type: BLOOD Comment: Test Performed by: [id number] Meter #: [id number] Ordering Provider: SILVIA REDDY Report Released Date/Time: Aug 21, 2024 04:49 PM Reporting Lab: [facility] [address] Performing Lab: [facility] [address] [facility] [address] GLUCOSE,BLOOD- poct (STL) 169 mg/dL H 72-99 Aug 21, 2024 11:53 AM [facility] GLUCOSE,BLOOD-poct (STL) Specimen Type: BLOOD Comment: Test Performed by: [id number] Meter #: [id number] Ordering Provider: SILVIA REDDY Report Released Date/Time: Aug 21, 2024 12:11 PM Reporting Lab: [facility] [facility] [address] Performing Lab: [facility] [address] [facility] [address] GLUCOSE,BLOOD- poct (STL) 149 mg/dL H 72-99 Aug 21, 2024 05:10 AM [facility] GLUCOSE,BLOOD-poct (STL) Specimen Type: BLOOD Comment: Test Performed by: [id number] Meter #: [id number] Ordering Provider: SILVIA REDDY Report Released Date/Time: Aug 21, 2024 05:27 AM Reporting Lab: [facility] [place] [address] Performing Lab: [facility] [address] [place] [phone] GLUCOSE,BLOOD- poct (STL) 118 mg/dL H 72-99 Aug 20, 2024 04:38 PM [facility] GLUCOSE,BLOOD-poct (STL) Specimen Type: BLOOD Comment: Test Performed by: [id number] Meter #: [id number] Ordering Provider: SILVIA REDDY Report Released Date/Time: Aug 21, 2024 01:55 AM Reporting Lab: [facility] [place] [address] Performing Lab: [facility] [address] [place] [address] GLUCOSE,BLOOD- poct (STL) 169 mg/dL H 72-Aug 20, 2024 04:36 PM [facility] GLUCOSE,BLOOD-poct (STL) Specimen Type: BLOOD Comment: Test Performed by: [id number] Meter #: [id number] Ordering Provider: SILVIA REDDY Report Released Date/Time: Aug 21, 2024 01:55 AM Reporting Lab: [facility] [place] [address] Performing Lab: [facility] [place] [address] GLUCOSE,BLOOD- poct (STL) 395 mg/dL H 72-99 Aug 20, 2024 11:45 AM [facility] GLUCOSE,BLOOD-poct (STL) Specimen Type: BLOOD Comment: Test Performed by: [id number] Meter #: [id number] Ordering Provider: SILVIA REDDY Report Released Date/Time: Aug 20, 2024 11:56 AM Reporting Lab: [facility] [address] Performing Lab: [facility] [address] [facility] [address] GLUCOSE,BLOOD- poct (STL) 169 mg/dL H 72-Aug 20, 2024 05:06 AM [facility] GLUCOSE,BLOOD-poct (STL) Specimen Type: BLOOD Comment: Test Performed by: [id number] Meter #: [id number] Ordering Provider: SILVIA REDDY Report Released Date/Time: Aug 20, 2024 06:05 AM Reporting Lab: [facility] [facility] [address] Performing Lab: [facility] [facility] [address] GLUCOSE,BLOOD- poct (STL) 115 mg/dL H 72-Aug 19, 2024 04:23 PM [facility] GLUCOSE,BLOOD-poct (STL) Specimen Type: BLOOD Comment: Test Performed by: [id number] Meter #: [id number] Ordering Provider: SILVIA REDDY Report Released Date/Time: Aug 19, 2024 05:54 PM Reporting Lab: [facility] [facility] [address] Performing Lab: [facility] [facility] [address] GLUCOSE,BLOOD- poct (STL) 137 mg/dL H 72-99 Aug 19, 2024 11:28 AM [facility] GLUCOSE,BLOOD-poct (STL) Specimen Type: BLOOD Comment: Test Performed by: [id number] Meter #: [id number] Ordering Provider: SILVIA REDDY Report Released Date/Time: Aug 19, 2024 11:51 AM Reporting Lab: [facility] [facility] [address] Performing Lab: [facility] [facility] [address] GLUCOSE,BLOOD- poct (STL) 190 mg/dL H 72-99 Aug 19, 2024 05:21 AM [facility] GLUCOSE,BLOOD-poct (STL) Specimen Type: BLOOD Comment: Test Performed by: [id number] Meter #: [id number] Ordering Provider: SILVIA REDDY Report Released Date/Time: Aug 19, 2024 05:56 AM Reporting Lab: [facility] [facility] [address] Performing Lab: [facility] [facility] [address] GLUCOSE,BLOOD- poct (STL) 130 mg/dL H Aug 18, 2024 04:49 PM [facility] GLUCOSE,BLOOD-poct (STL) Specimen Type: BLOOD Comment: Test Performed by: [id number] Meter #: [id number] Ordering Provider: SILVIA REDDY Report Released Date/Time: Aug 18, 2024 05:01 PM Reporting Lab: [facility] [address] Performing Lab: [facility] [facility] [address] GLUCOSE,BLOOD- poct (STL) 129 mg/dL H Aug 18, 2024 11:23 AM [facility] GLUCOSE,BLOOD-poct (STL) Specimen Type: BLOOD Comment: Test Performed by: [id number] Meter #: [id number] Ordering Provider: SILVIA REDDY Report Released Date/Time: Aug 18, 2024 11:41 AM Reporting Lab: [facility] [facility] [address] Performing Lab: [facility] [facility] [address] GLUCOSE,BLOOD- poct (STL) 180 mg/dL H Aug 18, 2024 05:08 AM [facility] GLUCOSE,BLOOD-poct (STL) Specimen Type: BLOOD Comment: Test Performed by: [id number] Meter #: [id number] Ordering Provider: SILVIA REDDY Report Released Date/Time: Aug 18, 2024 05:31 AM Reporting Lab: [facility] [place] [address] Performing Lab: [facility] [facility] [address] GLUCOSE,BLOOD- poct (STL) 127 mg/dL H -Aug 17, 2024 07:32 PM [facility] GLUCOSE,BLOOD-poct (STL) Specimen Type: BLOOD Comment: Test Performed by: [id number] Meter #: [id number] Ordering Provider: SILVIA REDDY Report Released Date/Time: Aug 17, 2024 07:59 PM Reporting Lab: [facility] [place] [address] Performing Lab: [facility] [place] [address] GLUCOSE,BLOOD- poct (STL) 154 mg/dL H -Aug 17, 2024 04:24 PM [facility] GLUCOSE,BLOOD-poct (STL) Specimen Type: BLOOD Comment: Test Performed by: [id number] Meter #: [id number] Ordering Provider: SILVIA REDDY Report Released Date/Time: Aug 17, 2024 04:35 PM Reporting Lab: [facility] [place] [address] Performing Lab: [facility] [place] [address] GLUCOSE,BLOOD- poct (STL) 178 mg/dL H -Aug 17, 2024 05:09 AM [facility] GLUCOSE,BLOOD-poct (STL) Specimen Type: BLOOD Comment: Test Performed by: [id number] Meter #: [id number] Ordering Provider: SILVIA REDDY Report Released Date/Time: Aug 17, 2024 05:54 AM Reporting Lab: [facility] [address] Performing Lab: [facility] [facility] [address] GLUCOSE,BLOOD- poct (STL) 124 mg/dL H 72-Aug 16, 2024 07:40 PM [facility] GLUCOSE,BLOOD-poct (STL) Specimen Type: BLOOD Comment: Test Performed by: [id number] Meter #: [id number] Ordering Provider: SILVIA REDDY Report Released Date/Time: Aug 16, 2024 08:28 PM Reporting Lab: [facility] [address] Performing Lab: [facility] [address] GLUCOSE,BLOOD- poct (STL) 144 mg/dL H -Aug 16, 2024 04:19 PM [facility] GLUCOSE,BLOOD-poct (STL) Specimen Type: BLOOD Comment: Test Performed by: [id number] Meter #: [id number] Ordering Provider: SILVIA REDDY Report Released Date/Time: Aug 16, 2024 04:45 PM Reporting Lab: [facility] [address] Performing Lab: [facility] [address] GLUCOSE,BLOOD- poct (STL) 138 mg/dL H 72-Aug 16, 2024 11:52 AM [facility] GLUCOSE,BLOOD-poct (STL) Specimen Type: BLOOD Comment: Test Performed by: [id number] Meter #: [id number] Ordering Provider: SILVIA REDDY Report Released Date/Time: Aug 16, 2024 12:04 PM Reporting Lab: [facility] [address] Performing Lab: [facility] [address] GLUCOSE,BLOOD- poct (STL) 135 mg/dL H 72-99 Aug 16, 2024 05:24 AM [facility] GLUCOSE,BLOOD-poct (STL) Specimen Type: BLOOD Comment: Test Performed by: [id number] Meter #: [id number] Ordering Provider: SILVIA REDDY Report Released Date/Time: Aug 16, 2024 05:38 AM Reporting Lab: [facility] [address] Performing Lab: [facility] [address] GLUCOSE,BLOOD- poct (STL) 151 mg/dL H Aug 15, 2024 07:31 PM [facility] GLUCOSE,BLOOD-poct (STL) Specimen Type: BLOOD Comment: Test Performed by: [id number] Meter #: [id number] Ordering Provider: SILVIA REDDY Report Released Date/Time: Aug 15, 2024 08:07 PM Reporting Lab: [facility] [address] Performing Lab: [facility] [address] GLUCOSE,BLOOD- poct (STL) 173 mg/dL H Aug 15, 2024 04:18 PM [facility] GLUCOSE,BLOOD-poct (STL) Specimen Type: BLOOD Comment: Test Performed by: [id number] Meter #: [id number] Ordering Provider: SILVIA REDDY Report Released Date/Time: Aug 15, 2024 04:59 PM Reporting Lab: [facility] [address] Performing Lab: [facility] [address] GLUCOSE,BLOOD- poct (STL) 136 mg/dL H Aug 15, 2024 04:16 PM [facility] GLUCOSE,BLOOD-poct (STL) Specimen Type: BLOOD Comment: Test Performed by: [id number] Meter #: [id number] Ordering Provider: SILVIA REDDY Report Released Date/Time: Aug 15, 2024 04:59 PM Reporting Lab: [facility] [place] [address] Performing Lab: [facility] [address] GLUCOSE,BLOOD- poct (STL) 194 mg/dL H 72-Aug 15, 2024 11:39 AM [facility] GLUCOSE,BLOOD-poct (STL) Specimen Type: BLOOD Comment: Test Performed by: [id number] Meter #: [id number] Ordering Provider: SILVIA REDDY Report Released Date/Time: Aug 15, 2024 12:00 PM Reporting Lab: [facility] [place] [address] Performing Lab: [facility] [place] [address] GLUCOSE,BLOOD- poct (STL) 127 mg/dL H -Aug 15, 2024 05:07 AM [facility] GLUCOSE,BLOOD-poct (STL) Specimen Type: BLOOD Comment: Test Performed by: [id number] Meter #: [id number] Ordering Provider: SILVIA REDDY Report Released Date/Time: Aug 15, 2024 06:14 AM Reporting Lab: [facility] [place] [address] Performing Lab: [facility] [place] [address] GLUCOSE,BLOOD- poct (STL) 151 mg/dL H -Aug 14, 2024 04:22 PM [facility] GLUCOSE,BLOOD-poct (STL) Specimen Type: BLOOD Comment: Test Performed by: [id number] Meter #: [id number] Ordering Provider: SILVIA REDDY Report Released Date/Time: Aug 14, 2024 04:52 PM Reporting Lab: [facility] [address] Performing Lab: [facility] [address] GLUCOSE,BLOOD- poct (STL) 129 mg/dL H 72-99 Aug 14, 2024 11:21 AM [facility] GLUCOSE,BLOOD-poct (STL) Specimen Type: BLOOD Comment: Test Performed by: [id number] Meter #: [id number] Ordering Provider: SILVIA REDDY Report Released Date/Time: Aug 14, 2024 11:37 AM Reporting Lab: [facility] [address] Performing Lab: [facility] [address] GLUCOSE,BLOOD- poct (STL) 135 mg/dL H 72-Aug 14, 2024 06:59 AM [facility] QUANTIFERON-TB,4 TUBE Specimen Type: BLOOD Comment: [...] For additional information, please refer to http://education. ClasesD/faq/QZQ049 (This link is being provided for information/ educational purposes only.) Test Performed by [employer] [place] [employer], [employer] [facility], [address] [place] [address] Tommie Garcia M.D., Ph.D., Director of Laboratories , [facility] [id number] Ordering Provider: SILVIA REDDY Report Released Date/Time: Aug 11, 2024 03:58 PM Reporting Lab: [facility] [address] [facility] [address] Performing Lab: [facility] [id number] [place] [address] .NIL - QUANTIFERON 0.04 [IU]/mL .MITOGEN-NIL 0.39 [IU]/mL .QUANTIFERON INDETERMINATE NEGATIVE .TB1-NIL <0.00 [IU]/mL .TB2-NIL <0.00 [IU]/mL Aug 14, 2024 06:59 AM [facility] MAGNESIUM Specimen Type: PLASMA Comment: No hemolysis noted. Ordering Provider: SILVIA REDDY Report Released Date/Time: Aug 11, 2024 03:58 PM Reporting Lab: [facility] [facility] [address] Performing Lab: [facility] [facility] [address] MAGNESIUM 1.9 mg/dL 1.6-2.6 Aug 14, 2024 06:59 AM [facility] B12 Specimen Type: SERUM No comment entered. Ordering Provider: SILVIA REDDY Report Released Date/Time: Aug 11, 2024 03:58 PM Reporting Lab: [facility] [facility] [address] Performing Lab: [facility] [facility] [address] B12 757 pg/mL 213-816 Aug 14, 2024 06:59 AM [facility] COMPREHENSIVE METABOLIC PANEL Specimen Type: PLASMA Comment: No hemolysis noted. Ordering Provider: SILVIA REDDY Report Released Date/Time: Aug 11, 2024 03:58 PM Reporting Lab: [facility] [facility] [address] Performing Lab: [facility] [facility] [address] CREATININE 0.75 mg/dL 0.70-1.30 UREA NITROGEN 13.6 [...] 95.88 >60 Aug 14, 2024 06:59 AM [facility] CBC Specimen Type: BLOOD No comment entered. Ordering Provider: SILVIA REDDY Report Released Date/Time: Aug 11, 2024 03:58 PM Reporting Lab: [facility] [facility] [address] Performing Lab: [facility] [facility] [address] WBC 4.1 10*3/uL 3.6-11.2 RBC 3.20 10*6/uL [...] 10*3/uL 0.00-0.20 Aug 14, 2024 06:59 AM [facility] ([facility] Specimen Type: SERUM No comment entered. Ordering Provider: SILVIA REDDY Report Released Date/Time: Aug 11, 2024 03:58 PM Reporting Lab: [facility] [place] [address] Performing Lab: [facility] [place] [address] [facility] ([facility]) 6.8 ng/mL L 7-20 Aug 14, 2024 06:59 AM [facility] VITAMIN D, 25-HYDROXY Specimen Type: SERUM No comment entered. Ordering Provider: SILVIA REDDY Report Released Date/Time: Aug 11, 2024 03:58 PM Reporting Lab: [facility] [place] [address] Performing Lab: [facility] [place] [address] VITAMIN D, 25-HYDROXY 8.9 ng/mL L 30-96 Aug 14, 2024 05:08 AM [facility] GLUCOSE,BLOOD-poct ([facility]) Specimen Type: BLOOD Comment: Test Performed by: [id number] Meter #: [id number] Ordering Provider: SILVIA REDDY Report Released Date/Time: Aug 14, 2024 05:52 AM Reporting Lab: [facility] [place] [address] Performing Lab: [facility] [place] [address] GLUCOSE,BLOOD- poct (L) 135 mg/dL H 72-99 Aug 13, 2024 04:27 PM [facility] GLUCOSE,BLOOD-poct (STL) Specimen Type: BLOOD Comment: Test Performed by: [id number] Meter #: [id number] Ordering Provider: SILVIA REDDY Report Released Date/Time: Aug 13, 2024 04:41 PM Reporting Lab: [facility] [address] Performing Lab: [facility] [address] GLUCOSE,BLOOD- poct (STL) 181 mg/dL H -Aug 13, 2024 11:33 AM [facility] GLUCOSE,BLOOD-poct (STL) Specimen Type: BLOOD Comment: Test Performed by: [id number] Meter #: [id number] Ordering Provider: SILVIA REDDY Report Released Date/Time: Aug 13, 2024 03:55 PM Reporting Lab: [facility] [address] Performing Lab: [facility] [place] [address] GLUCOSE,BLOOD- poct (STL) 140 mg/dL H Aug 13, 2024 05:54 AM [facility] GLUCOSE,BLOOD-poct (STL) Specimen Type: BLOOD Comment: Test Performed by: [id number] Meter #: [id number] Ordering Provider: SILVIA REDDY Report Released Date/Time: Aug 13, 2024 06:20 AM Reporting Lab: [facility] [address] Performing Lab: [facility] [address] GLUCOSE,BLOOD- poct (STL) 112 mg/dL H Aug 12, 2024 04:35 PM [facility] GLUCOSE,BLOOD-poct (STL) Specimen Type: BLOOD Comment: Test Performed by: [id number] Meter #: [id number] Ordering Provider: SILVIA REDDY Report Released Date/Time: Aug 12, 2024 04:47 PM Reporting Lab: [facility] [address] Performing Lab: [facility] [address] GLUCOSE,BLOOD- poct (STL) 128 mg/dL H 72-99 Aug 12, 2024 11:26 AM [facility] GLUCOSE,BLOOD-poct (STL) Specimen Type: BLOOD Comment: Test Performed by: [id number] Meter #: [id number] Ordering Provider: SILVIA REDDY Report Released Date/Time: Aug 12, 2024 11:45 AM Reporting Lab: [facility] [address] Performing Lab: [facility] [place] [address] GLUCOSE,BLOOD- poct (STL) 188 mg/dL H -Aug 12, 2024 06:13 AM [facility] GLUCOSE,BLOOD-poct (STL) Specimen Type: BLOOD Comment: Test Performed by: [id number] Meter #: [id number] Ordering Provider: SILVIA REDDY Report Released Date/Time: Aug 12, 2024 06:25 AM Reporting Lab: [facility] [address] Performing Lab: [facility] [address] GLUCOSE,BLOOD- poct (STL) 116 mg/dL H 72-99 Aug 11, 2024 04:10 PM [facility] GLUCOSE,BLOOD-poct (STL) Specimen Type: BLOOD Comment: Test Performed by: [id number] Meter #: [id number] Ordering Provider: SILVIA REDDY Report Released Date/Time: Aug 11, 2024 04:27 PM Reporting Lab: [facility] [place] [address] Performing Lab: [facility] [address] GLUCOSE,BLOOD- poct (STL) 184 mg/dL H 72-99 Aug 11, 2024 01:44 PM [facility] MRSA SURVL NARES DNA Specimen Type: [...] Aug 11, 2024 02:03 PM Reporting Lab: [address] [address] Performing Lab: [address] [address] MRSA SURVL NARES DNA Negative Negative Jul 20, 2024 11:18 AM [facility] APTT Specimen Type: PLASMA No comment entered. Ordering Provider: MANUEL BAIRD Report Released Date/Time: Jul 19, 2024 04:00 PM Reporting Lab: [address] [address] Performing Lab: [address] [address] APTT 32.1 s 26.7-39.9 Jul 20, 2024 11:18 AM [facility] PT/INR NEW (L-OR) Specimen Type: PLASMA No comment entered. Ordering Provider: MANUEL BAIRD Report Released Date/Time: Jul 19, 2024 04:00 PM Reporting Lab: [address] [address] Performing Lab: [address] [address] PROTIME 14.4 s H 9.4-12.5 INR VALUE 1.3 {INR} Jul 20, 2024 11:18 AM [facility] CBC Specimen Type: BLOOD No comment entered. Ordering Provider: MANUEL BAIRD Report Released Date/Time: Jul 19, 2024 04:00 PM Reporting Lab: [facility] [address] [facility] [address] Performing Lab: [address] [address] WBC 4.7 10*3/uL 3.6-11.2 RBC 4.86 10*6/uL [...] 1.0-7.0 Jul 17, 2024 08:02 AM [facility] BASIC METABOLIC PANEL Specimen Type: PLASMA Comment: No hemolysis noted. Ordering Provider: MARY SERNA Report Released Date/Time: Jun 07, 2024 01:43 PM Reporting Lab: [facility] [address] [place] [address] Performing Lab: [address] [address] CREATININE 0.85 mg/dL 0.7-1.3 UREA NITROGEN 15.2 [...] 08:19 PM 98.1 74 139/77 18 96 [facility] Aug 11, 2024 08:15 PM 0 [facility] Aug 11, 2024 02:26 PM 211.1 30 [facility] Aug 11, 2024 02:22 PM 97.6 124/77 18 [facility] Advance Directives: All historical [...] DIRECTIVE DISCUSSION ERICK BARDALES [facility]
--- OUTSIDE RECORDS SUMMARY | 2024-11-17 04:00 | XMS_ITS ---
[place] DAILY HOSPITALIZATION DATA [facility] Encounter Summary Created on: November 16, 2024 CHET WALKER : 1950 Sex: Male Author Name [facility] [place] [facility] [place] Address [address] [place] [address] Care Team Providers Care Security System Installer Name Role Phone MANUEL BAIRD Primary Care [...] PART A Apr 08, 2017 PART A [id number] ASHLEY WALKER PATIENT Selected Encounter This section includes the information on record at [place] for the Encounter. Date/Time Encounter Type Encounter Description Reason Pro vider Source Aug 11, 2024 03:10 PM Inpatient Visit DAILY HOSPITALIZATION DATA [facility] Encounter Template Text not used by [place] Plan of Treatment: Future Appointments (+ 6 [...] 24, 2024 10:00 AM AMBULATORY - MEDICINE [facility] Aug 24, 2024 10:30 AM AMBULATORY - MEDICINE [facility] Aug 30, 2024 09:30 AM AMBULATORY MEDICINE [facility] Aug 31, 2024 01:00 PM AMBULATORY - SURGERY [facility] Sep 21, 2024 01:30 PM AMBULATORY - MEDICINE [facility] Sep 22, 2024 11:00 AM AMBULATORY - MEDICINE [facility] Sep 29, 2024 12:30 PM AMBULATORY - MEDICINE [facility] Oct 02, 2024 09:30 AM AMBULATORY - MEDICINE [facility] Nov 20, 2024 10:30 AM AMBULATORY - SURGERY [facility] Nov 21, 2024 10:00 AM AMBULATORY - NONE [facility] Dec 11, 2024 10:30 AM AMBULATORY - MEDICINE [facility] Active, Pending, and Scheduled Orders This section includes a listing of several types of active, pending, and scheduled orders, including clinic medications orders, diagnostic test orders, procedure orders and consult orders; where the start date of the order is 45 days before the date of the Encounter or 45 days after the date of theEncounter. The data comes from all [facility]. Test Date/Time Test Type Test Details Facility Name Aug 02, 2024 12:00 AM Laboratory - Chemistry Order CBC BLOOD STAT SP [facility] Aug 02, 2024 12:00 AM Laboratory - Chemistry Order COMPREHENSIVE METABOLIC PANEL GREEN LI/HEP BLD/PLAS PLASMA SP [facility] Aug 17, 2024 03:47 PM Consult Order [facility] CARE-[facility] Cons Bedside [facility] Lab Results: +/- 30 days of the [...] Range Comment Aug 23, 2024 08:21 AM [facility] MAGNESIUM Specimen Type: PLASMA No comment entered. Ordering Provider: SILVIA REDDY Report Released Date/Time: Aug 22, 2024 11:26 AM Reporting Lab: [facility] [facility] [address] Performing Lab: [facility]1 [facility] [address] MAGNESIUM 1.8 mg/dL 1.6-2.6 Aug 23, 2024 08:21 AM [facility] CBC Specimen Type: BLOOD No comment entered. Ordering Provider: SILVIA REDDY Report Released Date/Time: Aug 22, 2024 11:19 AM Reporting Lab: [facility]1 [facility] [address] Performing Lab: [facility] #1 [facility] [address] WBC 4.0 10*3/uL 3.6-11.2 RBC 3.65 10*6/uL [...] 10*3/uL 0.00-0.20 Aug 23, 2024 05:12 AM [facility] GLUCOSE,BLOOD-poct (STL) Specimen Type: BLOOD Comment: Test Performed by: [id number] Meter #: [id number] Ordering Provider: SILVIA REDDY Report Released Date/Time: Aug 23, 2024 05:23 AM Reporting Lab: [facility] [address] Performing Lab: [facility] #1 [facility] [address] GLUCOSE,BLOOD- poct (STL) 99 mg/dL 72-99 Aug 23, 2024 02:45 AM [facility] OCCULT BLOOD FIT X1 SCREEN Specimen Type: FECES No comment entered. Ordering Provider: SILVIA REDDY Report Released Date/Time: Aug 22, 2024 11:23 AM Reporting Lab: [address] [address] Performing Lab: [address] [address] OCCULT BLOOD (FIT) #1 OF 1 Negative Negative Aug 22, 2024 07:30 PM [facility] OCCULT BLOOD FIT X1 SCREEN Specimen Type: FECES No comment entered. Ordering Provider: SILVIA REDDY Report Released Date/Time: Aug 22, 2024 11:23 AM Reporting Lab: [address] [address] Performing Lab: [address] [address] OCCULT BLOOD (FIT) #1 OF 1 Negative Negative Aug 22, 2024 06:15 PM [facility] OCCULT BLOOD FIT X1 SCREEN Specimen Type: FECES No comment entered. Ordering Provider: SILVIA REDDY Report Released Date/Time: Aug 22, 2024 11:23 AM Reporting Lab: [address] [address] Performing Lab: [facility] [address] [facility] [address] OCCULT BLOOD (FIT) #1 OF 1 Negative Negative Aug 22, 2024 04:24 PM [facility] GLUCOSE,BLOOD-poct (STL) Specimen Type: BLOOD Comment: Test Performed by: [id number] Meter #: [id number] Ordering Provider: SILVIA REDDY Report Released Date/Time: Aug 22, 2024 04:36 PM Reporting Lab: [facility]1 [facility] [address] Performing Lab: [facility] #1 [facility] [address] GLUCOSE,BLOOD- poct (STL) 176 mg/dL H -Aug 22, 2024 04:23 PM [facility] GLUCOSE,BLOOD-poct (STL) Specimen Type: BLOOD Comment: Test Performed by: [id number] Meter #: [id number] Ordering Provider: SILVIA REDDY Report Released Date/Time: Aug 22, 2024 04:36 PM Reporting Lab: [facility]1 [facility] [address] Performing Lab: [facility]1 [facility] [address] GLUCOSE,BLOOD- poct (STL) 221 mg/dL H 72-Aug 22, 2024 11:15 AM [facility] GLUCOSE,BLOOD-poct (STL) Specimen Type: BLOOD Comment: Test Performed by: [id number] Meter #: [id number] Ordering Provider: SILVIA REDDY Report Released Date/Time: Aug 22, 2024 11:27 AM Reporting Lab: [facility]1 [facility] [address] Performing Lab: [facility] #1 [facility] [address] GLUCOSE,BLOOD- poct (STL) 140 mg/dL H 72-Aug 22, 2024 08:03 AM [facility] FERRITIN Specimen Type: SERUM No comment entered. Ordering Provider: JUDIT PERKINS Report Released Date/Time: Aug 18, 2024 11:01 AM Reporting Lab: [facility] [address] [facility] [address] Performing Lab: [facility] [address] [place] [address] FERRITIN 79.50 ng/mL 22-275 Aug 22, 2024 08:03 AM [facility] COMPREHENSIVE METABOLIC PANEL Specimen Type: PLASMA Comment: No hemolysis noted. Ordering Provider: SILVIA REDDY Report Released Date/Time: Aug 17, 2024 01:18 PM Reporting Lab: [facility] [address] [facility] [address] Performing Lab: [address] [address] CREATININE 0.80 mg/dL 0.7-1.3 UREA NITROGEN 9.7 [...] 94.0 >60 Aug 22, 2024 08:03 AM [facility] IRON/TIBC PROFILE Specimen Type: SERUM No comment entered. Ordering Provider: JUDIT PERKINS Report Released Date/Time: Aug 18, 2024 11:01 AM Reporting Lab: [facility] [address] [facility] [address] Performing Lab: [facility] [address] [place] [address] TIBC 283 ug/dL 250-450 TRANSFERRIN 226 mg/dL 163-344 IRON SATURATION 7 L 20-50 IRON 19 ug/dL L 65-175 Aug 22, 2024 08:03 AM [facility] CBC Specimen Type: BLOOD No comment entered. Ordering Provider: SILVIA REDDY Report Released Date/Time: Aug 17, 2024 01:18 PM Reporting Lab: [facility]1 [facility] [address] Performing Lab: [facility] #1 [facility] [address] WBC 3.5 10*3/uL L 3.6-11.2 RBC 3.23 [...] NRBC% 0 Aug 22, 2024 08:03 AM [facility] B12 Specimen Type: SERUM No comment entered. Ordering Provider: JUDIT PERKINS Report Released Date/Time: Aug 18, 2024 11:01 AM Reporting Lab: [facility]1 [facility] [address] Performing Lab: [facility] #1 [facility] [address] B12 631 pg/mL 213-816 Aug 22, 2024 05:03 AM [facility] GLUCOSE,BLOOD-poct (STL) Specimen Type: BLOOD Comment: Test Performed by: [id number] Meter #: [id number] Ordering Provider: SILVIA REDDY Report Released Date/Time: Aug 22, 2024 06:17 AM Reporting Lab: [facility] #1 [facility] [address] Performing Lab: [facility] #1 [facility] [address] GLUCOSE,BLOOD- poct (STL) 170 mg/dL H 72-Aug 21, 2024 04:32 PM [facility] GLUCOSE,BLOOD-poct (STL) Specimen Type: BLOOD Comment: Test Performed by: [id number] Meter #: [id number] Ordering Provider: SILVIA ERDDY Report Released Date/Time: Aug 21, 2024 04:49 PM Reporting Lab: [facility] #1 [facility] [address] Performing Lab: [facility] #1 [facility] [address] GLUCOSE,BLOOD- poct (STL) 169 mg/dL H 72-99 Aug 21, 2024 11:53 AM [facility] GLUCOSE,BLOOD-poct (STL) Specimen Type: BLOOD Comment: Test Performed by: [id number] Meter #: [id number] Ordering Provider: SILVIA REDDY Report Released Date/Time: Aug 21, 2024 12:11 PM Reporting Lab: [facility] #1 [facility] [address] Performing Lab: [facility] #1 [facility] [address] GLUCOSE,BLOOD- poct (STL) 149 mg/dL H 72-99 Aug 21, 2024 05:10 AM [facility] GLUCOSE,BLOOD-poct (STL) Specimen Type: BLOOD Comment: Test Performed by: [id number] Meter #: [id number] Ordering Provider: SILVIA REDDY Report Released Date/Time: Aug 21, 2024 05:27 AM Reporting Lab: [facility] #1 [place] [address] Performing Lab: [facility] #1 [place] [id number] GLUCOSE,BLOOD- poct (STL) 118 mg/dL H 72-99 Aug 20, 2024 04:38 PM [facility] GLUCOSE,BLOOD-poct (STL) Specimen Type: BLOOD Comment: Test Performed by: [id number] Meter #: [id number] Ordering Provider: SILVIA REDDY Report Released Date/Time: Aug 21, 2024 01:55 AM Reporting Lab: [facility] #1 [place] [address] Performing Lab: [facility] #[address] [place] [address] GLUCOSE,BLOOD- poct (STL) 169 mg/dL H 72-Aug 20, 2024 04:36 PM [facility] GLUCOSE,BLOOD-poct (STL) Specimen Type: BLOOD Comment: Test Performed by: [id number] Meter #: [id number] Ordering Provider: SILVIA REDDY Report Released Date/Time: Aug 21, 2024 01:55 AM Reporting Lab: [facility] #1 [place] [address] Performing Lab: [facility] #1 [place] [address] GLUCOSE,BLOOD- poct (STL) 395 mg/dL H 72-99 Aug 20, 2024 11:45 AM [facility] GLUCOSE,BLOOD-poct (STL) Specimen Type: BLOOD Comment: Test Performed by: [id number] Meter #: [id number] Ordering Provider: SILVIA REDDY Report Released Date/Time: Aug 20, 2024 11:56 AM Reporting Lab: [facility]1 [facility] [address] Performing Lab: [facility] #1 [facility] [address] GLUCOSE,BLOOD- poct (STL) 169 mg/dL H 72-Aug 20, 2024 05:06 AM [facility] GLUCOSE,BLOOD-poct (STL) Specimen Type: BLOOD Comment: Test Performed by: [id number] Meter #: [id number] Ordering Provider: SILVIA REDDY Report Released Date/Time: Aug 20, 2024 06:05 AM Reporting Lab: [facility] #1 [facility] [address] Performing Lab: [facility] #1 [facility] [address] GLUCOSE,BLOOD- poct (STL) 115 mg/dL H 72-Aug 19, 2024 04:23 PM [facility] GLUCOSE,BLOOD-poct (STL) Specimen Type: BLOOD Comment: Test Performed by: [id number] Meter #: [id number] Ordering Provider: SILVIA REDDY Report Released Date/Time: Aug 19, 2024 05:54 PM Reporting Lab: [facility] #1 [facility] [address] Performing Lab: [facility] #1 [facility] [address] GLUCOSE,BLOOD- poct (STL) 137 mg/dL H 72-99 Aug 19, 2024 11:28 AM [facility] GLUCOSE,BLOOD-poct (STL) Specimen Type: BLOOD Comment: Test Performed by: [id number] Meter #: [id number] Ordering Provider: SILVIA REDDY Report Released Date/Time: Aug 19, 2024 11:51 AM Reporting Lab: [facility] #1 [facility] [address] Performing Lab: [facility] #1 [facility] [address] GLUCOSE,BLOOD- poct (STL) 190 mg/dL H 72-99 Aug 19, 2024 05:21 AM [facility] GLUCOSE,BLOOD-poct (STL) Specimen Type: BLOOD Comment: Test Performed by: [id number] Meter #: [id number] Ordering Provider: SILVIA REDDY Report Released Date/Time: Aug 19, 2024 05:56 AM Reporting Lab: [facility] #1 [facility] [address] Performing Lab: [facility] #1 [facility] [address] GLUCOSE,BLOOD- poct (STL) 130 mg/dL H Aug 18, 2024 04:49 PM [facility] GLUCOSE,BLOOD-poct (STL) Specimen Type: BLOOD Comment: Test Performed by: [id number] Meter #: [id number] Ordering Provider: SILVIA REDDY Report Released Date/Time: Aug 18, 2024 05:01 PM Reporting Lab: [facility]1 [facility] [address] Performing Lab: [facility] #1 [facility] [address] GLUCOSE,BLOOD- poct (STL) 129 mg/dL H Aug 18, 2024 11:23 AM [facility] GLUCOSE,BLOOD-poct (STL) Specimen Type: BLOOD Comment: Test Performed by: [id number] Meter #: [id number] Ordering Provider: SILVIA REDDY Report Released Date/Time: Aug 18, 2024 11:41 AM Reporting Lab: [facility] #1 [facility] [address] Performing Lab: [facility] #1 [facility] [address] GLUCOSE,BLOOD- poct (STL) 180 mg/dL H Aug 18, 2024 05:08 AM [facility] GLUCOSE,BLOOD-poct (STL) Specimen Type: BLOOD Comment: Test Performed by: [id number] Meter #: [id number] Ordering Provider: SILVIA REDDY Report Released Date/Time: Aug 18, 2024 05:31 AM Reporting Lab: [facility] #1 [place] [address] Performing Lab: [facility] #1 [facility] [address] GLUCOSE,BLOOD- poct (STL) 127 mg/dL H -Aug 17, 2024 07:32 PM [facility] GLUCOSE,BLOOD-poct (STL) Specimen Type: BLOOD Comment: Test Performed by: [id number] Meter #: [id number] Ordering Provider: SILVIA REDDY Report Released Date/Time: Aug 17, 2024 07:59 PM Reporting Lab: [facility] #1 [place] [address] Performing Lab: [facility] #1 [place] [address] GLUCOSE,BLOOD- poct (STL) 154 mg/dL H -Aug 17, 2024 04:24 PM [facility] GLUCOSE,BLOOD-poct (STL) Specimen Type: BLOOD Comment: Test Performed by: [id number] Meter #: [id number] Ordering Provider: SILVIA REDDY Report Released Date/Time: Aug 17, 2024 04:35 PM Reporting Lab: [facility] #1 [place] [address] Performing Lab: [facility] #1 [place] [address] GLUCOSE,BLOOD- poct (STL) 178 mg/dL H -Aug 17, 2024 05:09 AM [facility] GLUCOSE,BLOOD-poct (STL) Specimen Type: BLOOD Comment: Test Performed by: [id number] Meter #: [id number] Ordering Provider: SILVIA REDDY Report Released Date/Time: Aug 17, 2024 05:54 AM Reporting Lab: [facility] #1 [facility] [address] Performing Lab: [facility] #1 [facility] [address] GLUCOSE,BLOOD- poct (STL) 124 mg/dL H 72-Aug 16, 2024 07:40 PM [facility] GLUCOSE,BLOOD-poct (STL) Specimen Type: BLOOD Comment: Test Performed by: [id number] Meter #: [id number] Ordering Provider: SILVIA REDDY Report Released Date/Time: Aug 16, 2024 08:28 PM Reporting Lab: [facility] #1 [facility] [address] Performing Lab: [facility] #1 [facility] [address] GLUCOSE,BLOOD- poct (STL) 144 mg/dL H -Aug 16, 2024 04:19 PM [facility] GLUCOSE,BLOOD-poct (STL) Specimen Type: BLOOD Comment: Test Performed by: [id number] Meter #: [id number] Ordering Provider: SILVIA REDDY Report Released Date/Time: Aug 16, 2024 04:45 PM Reporting Lab: [facility] #1 [facility] [address] Performing Lab: [facility] #1 [facility] [address] GLUCOSE,BLOOD- poct (STL) 138 mg/dL H 72-Aug 16, 2024 11:52 AM [facility] GLUCOSE,BLOOD-poct (STL) Specimen Type: BLOOD Comment: Test Performed by: [id number] Meter #: [id number] Ordering Provider: SILVIA REDDY Report Released Date/Time: Aug 16, 2024 12:04 PM Reporting Lab: [facility] #1 [facility] [address] Performing Lab: [facility] #1 [facility] [address] GLUCOSE,BLOOD- poct (STL) 135 mg/dL H 72-99 Aug 16, 2024 05:24 AM [facility] GLUCOSE,BLOOD-poct (STL) Specimen Type: BLOOD Comment: Test Performed by: [id number] Meter #: [id number] Ordering Provider: SILVIA REDDY Report Released Date/Time: Aug 16, 2024 05:38 AM Reporting Lab: [facility] #1 [facility] [address] Performing Lab: [facility] #1 [facility] [address] GLUCOSE,BLOOD- poct (STL) 151 mg/dL H Aug 15, 2024 07:31 PM [facility] GLUCOSE,BLOOD-poct (STL) Specimen Type: BLOOD Comment: Test Performed by: [id number] Meter #: [id number] Ordering Provider: SILVIA REDDY Report Released Date/Time: Aug 15, 2024 08:07 PM Reporting Lab: [facility]1 [facility] [address] Performing Lab: [facility] #1 [facility] [address] GLUCOSE,BLOOD- poct (STL) 173 mg/dL H Aug 15, 2024 04:18 PM [facility] GLUCOSE,BLOOD-poct (STL) Specimen Type: BLOOD Comment: Test Performed by: [id number] Meter #: [id number] Ordering Provider: SILVIA REDDY Report Released Date/Time: Aug 15, 2024 04:59 PM Reporting Lab: [facility] #1 [facility] [address] Performing Lab: [facility] #1 [facility] [address] GLUCOSE,BLOOD- poct (STL) 136 mg/dL H Aug 15, 2024 04:16 PM [facility] GLUCOSE,BLOOD-poct (STL) Specimen Type: BLOOD Comment: Test Performed by: [id number] Meter #: [id number] Ordering Provider: SILVIA REDDY Report Released Date/Time: Aug 15, 2024 04:59 PM Reporting Lab: [facility] #1 [place] [address] Performing Lab: [facility] #1 [facility] [address] GLUCOSE,BLOOD- poct (STL) 194 mg/dL H 72-Aug 15, 2024 11:39 AM [facility] GLUCOSE,BLOOD-poct (STL) Specimen Type: BLOOD Comment: Test Performed by: [id number] Meter #: [id number] Ordering Provider: SILVIA REDDY Report Released Date/Time: Aug 15, 2024 12:00 PM Reporting Lab: [facility] #1 [place] [address] Performing Lab: [facility] #1 [place] [address] GLUCOSE,BLOOD- poct (STL) 127 mg/dL H -Aug 15, 2024 05:07 AM [facility] GLUCOSE,BLOOD-poct (STL) Specimen Type: BLOOD Comment: Test Performed by: [id number] Meter #: [id number] Ordering Provider: SILVIA REDDY Report Released Date/Time: Aug 15, 2024 06:14 AM Reporting Lab: [facility] #1 [place] [address] Performing Lab: [facility] #1 [place] [address] GLUCOSE,BLOOD- poct (STL) 151 mg/dL H -Aug 14, 2024 04:22 PM [facility] GLUCOSE,BLOOD-poct (STL) Specimen Type: BLOOD Comment: Test Performed by: [id number] Meter #: [id number] Ordering Provider: SILVIA REDDY Report Released Date/Time: Aug 14, 2024 04:52 PM Reporting Lab: [facility]1 [facility] [address] Performing Lab: [facility] #1 [facility] [address] GLUCOSE,BLOOD- poct (STL) 129 mg/dL H 72-99 Aug 14, 2024 11:21 AM [facility] GLUCOSE,BLOOD-poct (STL) Specimen Type: BLOOD Comment: Test Performed by: [id number] Meter #: [id number] Ordering Provider: SILVIA REDDY Report Released Date/Time: Aug 14, 2024 11:37 AM Reporting Lab: [facility] #1 [facility] [address] Performing Lab: [facility] #1 [facility] [address] GLUCOSE,BLOOD- poct (STL) 135 mg/dL H 72-Aug 14, 2024 06:59 AM [facility] QUANTIFERON-TB,4 TUBE Specimen Type: BLOOD Comment: [...] For additional information, please refer to http://education. [employer]/faq/QJP743 (This link is being provided for information/ educational purposes only.) Test Performed by [employer], [employer] [facility], [address] [place] [address] Tommie Garcia M.D., Ph.D., Director of Laboratories , [facility] [id number] Ordering Provider: SILVIA REDDY Report Released Date/Time: Aug 11, 2024 03:58 PM Reporting Lab: [facility] [address] [facility] [address] Performing Lab: [facility] [id number] [place] [address] .NIL - QUANTIFERON 0.04 [IU]/mL .MITOGEN-NIL 0.39 [IU]/mL .QUANTIFERON INDETERMINATE NEGATIVE .TB1-NIL <0.00 [IU]/mL .TB2-NIL <0.00 [IU]/mL Aug 14, 2024 06:59 AM [facility] MAGNESIUM Specimen Type: PLASMA Comment: No hemolysis noted. Ordering Provider: SILVIA REDDY Report Released Date/Time: Aug 11, 2024 03:58 PM Reporting Lab: [facility] [address] Performing Lab: [facility] [facility] [address] MAGNESIUM 1.9 mg/dL 1.6-2.6 Aug 14, 2024 06:59 AM [facility] B12 Specimen Type: SERUM No comment entered. Ordering Provider: SILVIA REDDY Report Released Date/Time: Aug 11, 2024 03:58 PM Reporting Lab: [facility] [address] Performing Lab: [facility] [address] B12 757 pg/mL 213-816 Aug 14, 2024 06:59 AM [facility] COMPREHENSIVE METABOLIC PANEL Specimen Type: PLASMA Comment: No hemolysis noted. Ordering Provider: SILVIA REDDY Report Released Date/Time: Aug 11, 2024 03:58 PM Reporting Lab: [facility] DIV[facility] #1 [facility] [address] Performing Lab: [facility] DIV[facility] #1 [facility] [address] CREATININE 0.75 mg/dL 0.70-1.30 UREA NITROGEN 13.6 [...] 95.88 >60 Aug 14, 2024 06:59 AM [facility] DIVISION CBC Specimen Type: BLOOD No comment entered. Ordering Provider: SILVIA REDDY Report Released Date/Time: Aug 11, 2024 03:58 PM Reporting Lab: [facility] DIV[facility] #1 [facility] [address] Performing Lab: [facility] DIV[facility] #1 [facility] [address] WBC 4.1 10*3/uL 3.6-11.2 RBC 3.20 10*6/uL [...] 10*3/uL 0.00-0.20 Aug 14, 2024 06:59 AM [facility] FOLATE ([facility]) Specimen Type: SERUM No comment entered. Ordering Provider: SILVIA REDDY Report Released Date/Time: Aug 11, 2024 03:58 PM Reporting Lab: [facility] DIV[facility] #1 [place] [address] Performing Lab: [facility] [place] [address] FOLATE ([facility]) 6.8 ng/mL L 7-20 Aug 14, 2024 06:59 AM [facility] VITAMIN D, 25-HYDROXY Specimen Type: SERUM No comment entered. Ordering Provider: SILVIA REDDY Report Released Date/Time: Aug 11, 2024 03:58 PM Reporting Lab: [facility] DIV[facility] #1 [place] [address] Performing Lab: [facility] [place] [address] VITAMIN D, 25-HYDROXY 8.9 ng/mL L 30-96 Aug 14, 2024 05:08 AM [facility] GLUCOSE,BLOOD-poct ([facility]) Specimen Type: BLOOD Comment: Test Performed by: [id number] Meter #: [id number] Ordering Provider: SILVIA REDDY Report Released Date/Time: Aug 14, 2024 05:52 AM Reporting Lab: [facility] DIV[facility] #1 [place] [address] Performing Lab: [facility] [place] [address] GLUCOSE,BLOOD- poct (L) 135 mg/dL H 72-99 Aug 13, 2024 04:27 PM [facility] GLUCOSE,BLOOD-poct (STL) Specimen Type: BLOOD Comment: Test Performed by: [id number] Meter #: [id number] Ordering Provider: SILVIA REDDY Report Released Date/Time: Aug 13, 2024 04:41 PM Reporting Lab: [facility] #1 [facility] [address] Performing Lab: [facility]1 [facility] [address] GLUCOSE,BLOOD- poct (STL) 181 mg/dL H -Aug 13, 2024 11:33 AM [facility] GLUCOSE,BLOOD-poct (STL) Specimen Type: BLOOD Comment: Test Performed by: [id number] Meter #: [id number] Ordering Provider: SILVIA REDDY Report Released Date/Time: Aug 13, 2024 03:55 PM Reporting Lab: [facility]1 [facility] [address] Performing Lab: [facility] [place] [address] GLUCOSE,BLOOD- poct (STL) 140 mg/dL H Aug 13, 2024 05:54 AM [facility] GLUCOSE,BLOOD-poct (STL) Specimen Type: BLOOD Comment: Test Performed by: [id number] Meter #: [id number] Ordering Provider: SILVIA REDDY Report Released Date/Time: Aug 13, 2024 06:20 AM Reporting Lab: [facility] #1 [facility] [address] Performing Lab: [facility] #1 [facility] [address] GLUCOSE,BLOOD- poct (STL) 112 mg/dL H Aug 12, 2024 04:35 PM [facility] GLUCOSE,BLOOD-poct (STL) Specimen Type: BLOOD Comment: Test Performed by: [id number] Meter #: [id number] Ordering Provider: SILVIA REDDY Report Released Date/Time: Aug 12, 2024 04:47 PM Reporting Lab: [facility] DIV[facility] #1 [facility] [address] Performing Lab: [facility] #1 [facility] [address] GLUCOSE,BLOOD- poct (STL) 128 mg/dL H 72-99 Aug 12, 2024 11:26 AM [facility] GLUCOSE,BLOOD-poct (STL) Specimen Type: BLOOD Comment: Test Performed by: [id number] Meter #: [id number] Ordering Provider: SILVIA REDDY Report Released Date/Time: Aug 12, 2024 11:45 AM Reporting Lab: [facility] #1 [facility] [address] Performing Lab: [facility] #1 [place] [address] GLUCOSE,BLOOD- poct (STL) 188 mg/dL H -Aug 12, 2024 06:13 AM [facility] GLUCOSE,BLOOD-poct (STL) Specimen Type: BLOOD Comment: Test Performed by: [id number] Meter #: [id number] Ordering Provider: SILVIA REDDY Report Released Date/Time: Aug 12, 2024 06:25 AM Reporting Lab: [facility] #1 [facility] [address] Performing Lab: [facility] #1 [facility] [address] GLUCOSE,BLOOD- poct (STL) 116 mg/dL H 72-99 Aug 11, 2024 04:10 PM [facility] GLUCOSE,BLOOD-poct (STL) Specimen Type: BLOOD Comment: Test Performed by: [id number] Meter #: [id number] Ordering Provider: SILVIA REDDY Report Released Date/Time: Aug 11, 2024 04:27 PM Reporting Lab: [facility] #1 [place] [address] Performing Lab: [facility] DIV[facility] #1 [facility] [address] GLUCOSE,BLOOD- poct (STL) 184 mg/dL H 72-99 Aug 11, 2024 01:44 PM [facility] MRSA SURVL NARES DNA Specimen Type: [...] Aug 11, 2024 02:03 PM Reporting Lab: [address] [address] Performing Lab: [address] [address] MRSA SURVL NARES DNA Negative Negative Jul 20, 2024 11:18 AM [facility] APTT Specimen Type: PLASMA No comment entered. Ordering Provider: MANUEL BAIRD Report Released Date/Time: Jul 19, 2024 04:00 PM Reporting Lab: [address] [address] Performing Lab: [address] [address] APTT 32.1 s 26.7-39.9 Jul 20, 2024 11:18 AM [facility] PT/INR NEW (L-DE) Specimen Type: PLASMA No comment entered. Ordering Provider: MANUEL BAIRD Report Released Date/Time: Jul 19, 2024 04:00 PM Reporting Lab: [address] [address] Performing Lab: [address] [address] PROTIME 14.4 s H 9.4-12.5 INR VALUE 1.3 {INR} Jul 20, 2024 11:18 AM [facility] CBC Specimen Type: BLOOD No comment entered. Ordering Provider: MANUEL BAIRD Report Released Date/Time: Jul 19, 2024 04:00 PM Reporting Lab: [facility] DIVISION [address] [facility] [address] Performing Lab: [address] [address] WBC 4.7 10*3/uL 3.6-11.2 RBC 4.86 10*6/uL [...] 1.6 1.0-7.0 Jul 17, 2024 08:02 AM [facility] BASIC METABOLIC PANEL Specimen Type: PLASMA Comment: No hemolysis noted. Ordering Provider: MARY SERNA Report Released Date/Time: Jun 07, 2024 01:43 PM Reporting Lab: [facility] DIVISION [address] [place] [address] Performing Lab: [address] [address] CREATININE 0.85 mg/dL 0.7-1.3 UREA NITROGEN 15.2 [...] 08:19 PM 98.1 74 139/77 18 96 [facility] DIVISIO N Aug 11, 2024 08:15 PM 0 [facility] DIVISIO N Aug 11, 2024 02:26 PM 211.1 30 [facility] DIVISIO N Aug 11, 2024 02:22 PM 97.6 124/77 18 [facility] DIVISIO N Advance Directives: All historical and current Section Date Range: From patient's date of to the date document was created. This section includes ALL of a patient's completed or amended [place] Advance and Rescinded Directives. The entries below indicate that a directive exists for the patient, but an actual copy is not included with this document. The data comes from all [place] facilities. Date Advance Directives Provider Source Jan 19, 2017 ADVANCE DIRECTIVE DISCUSSION ERICK BARDALES [facility] DIV[facility]
--- OUTSIDE RECORDS SUMMARY | 2024-11-17 04:01 | XMS_ITS ---
[place] DAILY HOSPITALIZATION DATA [facility] Encounter Summary Created on: November 16, 2024 CHET WALKER : 1950 Sex: Male Author Name [facility] [place] [facility] [place] [facility] [place] Address [address] [place] [address] Care Team Providers Care Social Media Director Name Role Phone MANUEL BAIRD Primary Care [...] PART A Apr 08, 2017 PART A [id number] ASHLEY WALKER PATIENT Selected Encounter This section includes the information on record at [place] for the Encounter. Date/Time Encounter Type Encounter Description Reason Pro vider Source Aug 12, 2024 02:28 PM Inpatient Visit DAILY HOSPITALIZATION DATA [facility] Encounter Template Text not used by [place] Plan of Treatment: Future Appointments (+ 6 [...] 20 appointments. The data comes from all [facility]. Appointment Date/Time Appointment Type Appointme nt Facility Name Aug 24, 2024 10:00 AM [facility]ATORY [facility] Aug 24, 2024 10:30 AM [facility] Aug 30, 2024 09:30 AM [facility] Aug 31, 2024 01:00 PM AM[facility]ULATORY - SURGERY [facility] Sep 21, 2024 01:30 PM [facility] Sep 22, 2024 11:00 AM AMBULATORY - MEDICINE [facility] Sep 29, 2024 12:30 PM AMBULATORY - MEDICINE [facility] Oct 02, 2024 09:30 AM [facility] Nov 20, 2024 10:30 AM AM[facility]ATORY - SUR[facility]ERY [facility] Nov 21, 2024 10:00 AM AMBULATORY - NONE [facility] Dec 11, 2024 10:30 AM AMBULATORY - MEDICINE [facility] Active, Pending, and [...] of theEncounter. The data comes from all [facility]. Test Date/Time Test Type Test Details Facility Name Aug 02, 2024 12:00 AM Laboratory - Chemistry Order CBC BLOOD STAT SP [facility] Aug 02, 2024 12:00 AM Laboratory - Chemistry Order COMPREHENSIVE METABOLIC PANEL GREEN LI/HEP BLD/PLAS PLASMA SP [facility] Aug 17, 2024 03:47 PM Consult Order [facility] Cons Bedside [facility] Lab Results: +/- 30 [...] Range Comment Aug 23, 2024 08:[address] [facility] MAGNESIUM Specimen Type: PLASMA No comment entered. Ordering Provider: SILVIA REDDY Report Released Date/Time: Aug 22, 2024 11:26 AM Reporting Lab: [facility] [address] Performing Lab: [facility] [address] MAGNESIUM 1.8 mg/dL 1.6-2.6 Aug 23, 2024 08:[address] [facility] CBC Specimen Type: BLOOD No comment entered. Ordering Provider: SILVIA REDDY Report Released Date/Time: Aug 22, 2024 11:19 AM Reporting Lab: [facility] [address] Performing Lab: [facility] [address] WBC 4.0 10*3/uL 3.6-11.2 RBC 3.65 10*6/uL [...] 10*3/uL 0.00-0.20 Aug 23, 2024 05:[address] [facility] GLUCOSE,BLOOD-poct (STL) Specimen Type: BLOOD Comment: Test Performed by: [id number] Meter #: [id number] Ordering Provider: SILVIA REDDY Report Released Date/Time: Aug 23, 2024 05:23 AM Reporting Lab: [facility] [address] Performing Lab: [facility] [address] GLUCOSE,BLOOD- poct (STL) 99 mg/dL 72-99 Aug 23, 2024 02:[address] [facility] OCCULT BLOOD FIT X1 SCREEN Specimen Type: FECES No comment entered. Ordering Provider: SILVIA REDDY Report Released Date/Time: Aug 22, 2024 11:23 AM Reporting Lab: [address] [address] Performing Lab: [address] [address] OCCULT BLOOD (FIT) #1 OF 1 Negative Negative Aug 22, 2024 07:[address] [facility] OCCULT BLOOD FIT X1 SCREEN Specimen Type: FECES No comment entered. Ordering Provider: SILVIA REDDY Report Released Date/Time: Aug 22, 2024 11:23 AM Reporting Lab: [address] [address] Performing Lab: [address] [address] OCCULT BLOOD (FIT) #1 OF 1 Negative Negative Aug 22, 2024 06:[address] [facility] OCCULT BLOOD FIT X1 SCREEN Specimen Type: FECES No comment entered. Ordering Provider: SILVIA REDDY Report Released Date/Time: Aug 22, 2024 11:23 AM Reporting Lab: [address] [address] Performing Lab: [facility] [address] [place] [address] OCCULT BLOOD (FIT) #1 OF 1 Negative Negative Aug 22, 2024 04:[address] [facility] GLUCOSE,BLOOD-poct (STL) Specimen Type: BLOOD Comment: Test Performed by: [id number] Meter #: [id number] Ordering Provider: SILVIA REDDY Report Released Date/Time: Aug 22, 2024 04:36 PM Reporting Lab: [facility] [address] Performing Lab: [facility] [address] GLUCOSE,BLOOD- poct (STL) 176 mg/dL H -Aug 22, 2024 04:[address] [facility] GLUCOSE,BLOOD-poct (STL) Specimen Type: BLOOD Comment: Test Performed by: [id number] Meter #: [id number] Ordering Provider: SILVIA REDDY Report Released Date/Time: Aug 22, 2024 04:36 PM Reporting Lab: [facility] [address] Performing Lab: [facility] [address] GLUCOSE,BLOOD- poct (STL) 221 mg/dL H 72-Aug 22, 2024 11:[address] [facility] GLUCOSE,BLOOD-poct (STL) Specimen Type: BLOOD Comment: Test Performed by: [id number] Meter #: [id number] Ordering Provider: SILVIA REDDY Report Released Date/Time: Aug 22, 2024 11:27 AM Reporting Lab: [facility] [address] Performing Lab: [facility] [address] GLUCOSE,BLOOD- poct (STL) 140 mg/dL H 72-Aug 22, 2024 08:[address] [facility] FERRITIN Specimen Type: SERUM No comment entered. Ordering Provider: JUDIT PERKINS Report Released Date/Time: Aug 18, 2024 11:01 AM Reporting Lab: [facility] [address] [place] [address] Performing Lab: [facility] [address] [place] [address] FERRITIN 79.50 ng/mL 22-275 Aug 22, 2024 08:[address] [facility] IRON/TIBC PROFILE Specimen Type: SERUM No comment entered. Ordering Provider: JUDIT PERKINS Report Released Date/Time: Aug 18, 2024 11:01 AM Reporting Lab: [address] [address] Performing Lab: [address] [address] TIBC 283 ug/dL 250-450 TRANSFERRIN 226 mg/dL 163-344 IRON SATURATION 7 L 20-50 IRON 19 ug/dL L 65-175 Aug 22, 2024 08:03 AM [facility] B12 Specimen Type: SERUM No comment entered. Ordering Provider: JUDIT PERKINS Report Released Date/Time: Aug 18, 2024 11:01 AM Reporting Lab: [facility] [address] Performing Lab: [facility] [address] B12 631 pg/mL 213-816 Aug 22, 2024 08:[address] [facility] CBC Specimen Type: BLOOD No comment entered. Ordering Provider: SILVIA REDDY Report Released Date/Time: Aug 17, 2024 01:18 PM Reporting Lab: [facility] [address] Performing Lab: [facility] [address] WBC 3.5 10*3/uL L 3.6-11.2 RBC 3.23 [...] NRBC% 0 Aug 22, 2024 08:03 AM [facility] COMPREHENSIVE METABOLIC PANEL Specimen Type: PLASMA Comment: No hemolysis noted. Ordering Provider: SILVIA REDDY Report Released Date/Time: Aug 17, 2024 01:18 PM Reporting Lab: [facility] [address] [place] [address] Performing Lab: [facility] [address] [place] [address] CREATININE 0.80 mg/dL 0.7-1.3 UREA NITROGEN 9.7 [...] (CKD-EPI 2020) 94.0 >60 Aug 22, 2024 05:[address] [facility] GLUCOSE,BLOOD-poct (STL) Specimen Type: BLOOD Comment: Test Performed by: [id number] Meter #: [id number] Ordering Provider: SILVIA REDDY Report Released Date/Time: Aug 22, 2024 06:17 AM Reporting Lab: [facility] [address] Performing Lab: [facility] [address] GLUCOSE,BLOOD- poct (STL) 170 mg/dL H 72-Aug 21, 2024 04:[address] [facility] GLUCOSE,BLOOD-poct (STL) Specimen Type: BLOOD Comment: Test Performed by: [id number] Meter #: [id number] Ordering Provider: SILVIA REDDY Report Released Date/Time: Aug 21, 2024 04:49 PM Reporting Lab: [facility] [address] Performing Lab: [facility] [address] GLUCOSE,BLOOD- poct (STL) 169 mg/dL H 72-99 Aug 21, 2024 11:[address] [facility] GLUCOSE,BLOOD-poct (STL) Specimen Type: BLOOD Comment: Test Performed by: [id number] Meter #: [id number] Ordering Provider: SILVIA REDDY Report Released Date/Time: Aug 21, 2024 12:11 PM Reporting Lab: [facility] [address] Performing Lab: [facility] [address] GLUCOSE,BLOOD- poct (STL) 149 mg/dL H 72-99 Aug 21, 2024 05:[address] [facility] GLUCOSE,BLOOD-poct (STL) Specimen Type: BLOOD Comment: Test Performed by: [id number] Meter #: [id number] Ordering Provider: SILVIA REDDY Report Released Date/Time: Aug 21, 2024 05:27 AM Reporting Lab: [facility] [place] [address] Performing Lab: [facility] [place] [id number] GLUCOSE,BLOOD- poct (STL) 118 mg/dL H 72-99 Aug 20, 2024 04:[address] [facility] GLUCOSE,BLOOD-poct (STL) Specimen Type: BLOOD Comment: Test Performed by: [id number] Meter #: [id number] Ordering Provider: SILVIA REDDY Report Released Date/Time: Aug 21, 2024 01:55 AM Reporting Lab: [facility] [place] [address] Performing Lab: [facility] [place] [address] GLUCOSE,BLOOD- poct (STL) 169 mg/dL H 72-Aug 20, 2024 04:[address] [facility] GLUCOSE,BLOOD-poct (STL) Specimen Type: BLOOD Comment: Test Performed by: [id number] Meter #: [id number] Ordering Provider: SILVIA REDDY Report Released Date/Time: Aug 21, 2024 01:55 AM Reporting Lab: [facility] [place] [address] Performing Lab: [facility] [place] [address] GLUCOSE,BLOOD- poct (STL) 395 mg/dL H 72-99 Aug 20, 2024 11:[address] [facility] GLUCOSE,BLOOD-poct (STL) Specimen Type: BLOOD Comment: Test Performed by: [id number] Meter #: [id number] Ordering Provider: SILVIA REDDY Report Released Date/Time: Aug 20, 2024 11:56 AM Reporting Lab: [facility] [address] Performing Lab: [facility] [address] GLUCOSE,BLOOD- poct (STL) 169 mg/dL H 72-Aug 20, 2024 05:[address] [facility] GLUCOSE,BLOOD-poct (STL) Specimen Type: BLOOD Comment: Test Performed by: [id number] Meter #: [id number] Ordering Provider: SILVIA REDDY Report Released Date/Time: Aug 20, 2024 06:05 AM Reporting Lab: [facility] [address] Performing Lab: [facility] [address] GLUCOSE,BLOOD- poct (STL) 115 mg/dL H 72-Aug 19, 2024 04:[address] [facility] GLUCOSE,BLOOD-poct (STL) Specimen Type: BLOOD Comment: Test Performed by: [id number] Meter #: [id number] Ordering Provider: SILVIA REDDY Report Released Date/Time: Aug 19, 2024 05:54 PM Reporting Lab: [facility] [address] Performing Lab: [facility] [address] GLUCOSE,BLOOD- poct (STL) 137 mg/dL H 72-99 Aug 19, 2024 11:[address] [facility] GLUCOSE,BLOOD-poct (STL) Specimen Type: BLOOD Comment: Test Performed by: [id number] Meter #: [id number] Ordering Provider: SILVIA REDDY Report Released Date/Time: Aug 19, 2024 11:51 AM Reporting Lab: [facility] [address] Performing Lab: [facility] [address] GLUCOSE,BLOOD- poct (STL) 190 mg/dL H 72-99 Aug 19, 2024 05:[address] [facility] GLUCOSE,BLOOD-poct (STL) Specimen Type: BLOOD Comment: Test Performed by: [id number] Meter #: [id number] Ordering Provider: SILVIA RDEDY Report Released Date/Time: Aug 19, 2024 05:56 AM Reporting Lab: [facility] [address] Performing Lab: [facility] [address] GLUCOSE,BLOOD- poct (STL) 130 mg/dL H Aug 18, 2024 04:[address] [facility] GLUCOSE,BLOOD-poct (STL) Specimen Type: BLOOD Comment: Test Performed by: [id number] Meter #: [id number] Ordering Provider: SILVIA REDDY Report Released Date/Time: Aug 18, 2024 05:01 PM Reporting Lab: [facility] [address] Performing Lab: [facility] [address] GLUCOSE,BLOOD- poct (STL) 129 mg/dL H Aug 18, 2024 11:[address] [facility] GLUCOSE,BLOOD-poct (STL) Specimen Type: BLOOD Comment: Test Performed by: [id number] Meter #: [id number] Ordering Provider: SILVIA REDDY Report Released Date/Time: Aug 18, 2024 11:41 AM Reporting Lab: [facility] [address] Performing Lab: [facility] [address] GLUCOSE,BLOOD- poct (STL) 180 mg/dL H Aug 18, 2024 05:[address] [facility] GLUCOSE,BLOOD-poct (STL) Specimen Type: BLOOD Comment: Test Performed by: [id number] Meter #: [id number] Ordering Provider: SILVIA REDDY Report Released Date/Time: Aug 18, 2024 05:31 AM Reporting Lab: [facility] [place] [address] Performing Lab: [facility] [address] GLUCOSE,BLOOD- poct (STL) 127 mg/dL H -Aug 17, 2024 07:[address] [facility] GLUCOSE,BLOOD-poct (STL) Specimen Type: BLOOD Comment: Test Performed by: [id number] Meter #: [id number] Ordering Provider: SILVIA REDDY Report Released Date/Time: Aug 17, 2024 07:59 PM Reporting Lab: [facility] [place] [address] Performing Lab: [facility] [place] [address] GLUCOSE,BLOOD- poct (STL) 154 mg/dL H -Aug 17, 2024 04:[address] [facility] GLUCOSE,BLOOD-poct (STL) Specimen Type: BLOOD Comment: Test Performed by: [id number] Meter #: [id number] Ordering Provider: SILVIA REDDY Report Released Date/Time: Aug 17, 2024 04:35 PM Reporting Lab: [facility] [place] [address] Performing Lab: [facility] [place] [address] GLUCOSE,BLOOD- poct (STL) 178 mg/dL H -Aug 17, 2024 05:[address] [facility] GLUCOSE,BLOOD-poct (STL) Specimen Type: BLOOD Comment: Test Performed by: [id number] Meter #: [id number] Ordering Provider: SILVIA REDDY Report Released Date/Time: Aug 17, 2024 05:54 AM Reporting Lab: [facility] [address] Performing Lab: [facility] [address] GLUCOSE,BLOOD- poct (STL) 124 mg/dL H 72-Aug 16, 2024 07:[address] [facility] GLUCOSE,BLOOD-poct (STL) Specimen Type: BLOOD Comment: Test Performed by: [id number] Meter #: [id number] Ordering Provider: SILVIA REDDY Report Released Date/Time: Aug 16, 2024 08:28 PM Reporting Lab: [facility] [address] Performing Lab: [facility] [address] GLUCOSE,BLOOD- poct (STL) 144 mg/dL H -Aug 16, 2024 04:[address] [facility] GLUCOSE,BLOOD-poct (STL) Specimen Type: BLOOD Comment: Test Performed by: [id number] Meter #: [id number] Ordering Provider: SILVIA REDDY Report Released Date/Time: Aug 16, 2024 04:45 PM Reporting Lab: [facility] [address] Performing Lab: [facility] [address] GLUCOSE,BLOOD- poct (STL) 138 mg/dL H 72-Aug 16, 2024 11:[address] [facility] GLUCOSE,BLOOD-poct (STL) Specimen Type: BLOOD Comment: Test Performed by: [id number] Meter #: [id number] Ordering Provider: SILVIA REDDY Report Released Date/Time: Aug 16, 2024 12:04 PM Reporting Lab: [facility] [address] Performing Lab: [facility] [address] GLUCOSE,BLOOD- poct (STL) 135 mg/dL H 72-99 Aug 16, 2024 05:[address] [facility] GLUCOSE,BLOOD-poct (STL) Specimen Type: BLOOD Comment: Test Performed by: [id number] Meter #: [id number] Ordering Provider: SILVIA REDDY Report Released Date/Time: Aug 16, 2024 05:38 AM Reporting Lab: [facility] [address] Performing Lab: [facility] [address] GLUCOSE,BLOOD- poct (STL) 151 mg/dL H Aug 15, 2024 07:[address] [facility] GLUCOSE,BLOOD-poct (STL) Specimen Type: BLOOD Comment: Test Performed by: [id number] Meter #: [id number] Ordering Provider: SILVIA REDDY Report Released Date/Time: Aug 15, 2024 08:07 PM Reporting Lab: [facility] [address] Performing Lab: [facility] [address] GLUCOSE,BLOOD- poct (STL) 173 mg/dL H Aug 15, 2024 04:[address] [facility] GLUCOSE,BLOOD-poct (STL) Specimen Type: BLOOD Comment: Test Performed by: [id number] Meter #: [id number] Ordering Provider: SILVIA REDDY Report Released Date/Time: Aug 15, 2024 04:59 PM Reporting Lab: [facility] [address] Performing Lab: [facility] [address] GLUCOSE,BLOOD- poct (STL) 136 mg/dL H Aug 15, 2024 04:[address] [facility] GLUCOSE,BLOOD-poct (STL) Specimen Type: BLOOD Comment: Test Performed by: [id number] Meter #: [id number] Ordering Provider: SILVIA REDDY Report Released Date/Time: Aug 15, 2024 04:59 PM Reporting Lab: [facility] [place] [address] Performing Lab: [facility] [address] GLUCOSE,BLOOD- poct (STL) 194 mg/dL H 72-Aug 15, 2024 11:[address] [facility] GLUCOSE,BLOOD-poct (STL) Specimen Type: BLOOD Comment: Test Performed by: [id number] Meter #: [id number] Ordering Provider: SILVIA REDDY Report Released Date/Time: Aug 15, 2024 12:00 PM Reporting Lab: [facility] [place] [address] Performing Lab: [facility] [place] [address] GLUCOSE,BLOOD- poct (STL) 127 mg/dL H -Aug 15, 2024 05:[address] [facility] GLUCOSE,BLOOD-poct (STL) Specimen Type: BLOOD Comment: Test Performed by: [id number] Meter #: [id number] Ordering Provider: SILVIA REDDY Report Released Date/Time: Aug 15, 2024 06:14 AM Reporting Lab: [facility] [place] [address] Performing Lab: [facility] [place] [address] GLUCOSE,BLOOD- poct (STL) 151 mg/dL H -Aug 14, 2024 04:[address] [facility] GLUCOSE,BLOOD-poct (STL) Specimen Type: BLOOD Comment: Test Performed by: [id number] Meter #: [id number] Ordering Provider: SILVIA REDDY Report Released Date/Time: Aug 14, 2024 04:52 PM Reporting Lab: [facility] [address] Performing Lab: [facility] [address] GLUCOSE,BLOOD- poct (STL) 129 mg/dL H 72-99 Aug 14, 2024 11:[address] [facility] GLUCOSE,BLOOD-poct (STL) Specimen Type: BLOOD Comment: Test Performed by: [id number] Meter #: [id number] Ordering Provider: SILVIA REDDY Report Released Date/Time: Aug 14, 2024 11:37 AM Reporting Lab: [facility] [address] Performing Lab: [facility] [address] GLUCOSE,BLOOD- poct (STL) 135 mg/dL H 72-Aug 14, 2024 06:[address] [facility] QUANTIFERON-TB,4 TUBE Specimen Type: BLOOD [...] For additional information, please refer to http://education. MarketMuse/faq/GCW114 (This link is being provided for information/ educational purposes only.) Test Performed by KamidaSander, [facility], [address] [place] [address] Tommie Garcia M.D., Ph.D., Director of Laboratories , [facility] [id number] Ordering Provider: SILVIA REDDY Report Released Date/Time: Aug 11, 2024 03:58 PM Reporting Lab: [facility] [address] [facility] [place] [address] Performing Lab: [facility] [id number] [place] [address] .NIL - QUANTIFERON 0.04 [IU]/mL .MITOGEN-NIL 0.39 [IU]/mL .QUANTIFERON INDETERMINATE NEGATIVE .TB1-NIL <0.00 [IU]/mL .TB2-NIL <0.00 [IU]/mL Aug 14, 2024 06:59 AM [facility] MAGNESIUM Specimen Type: PLASMA Comment: No hemolysis noted. Ordering Provider: SILVIA REDDY Report Released Date/Time: Aug 11, 2024 03:58 PM Reporting Lab: [facility] [address] Performing Lab: [facility] [address] MAGNESIUM 1.9 mg/dL 1.6-2.6 Aug 14, 2024 06:59 AM [facility] FOLATE (STL-MA) Specimen Type: SERUM No comment entered. Ordering Provider: SILVIA REDDY Report Released Date/Time: Aug 11, 2024 03:58 PM Reporting Lab: [facility] [id number] Performing Lab: [facility] [address] FOLATE ([facility]) 6.8 ng/mL L 7-20 Aug 14, 2024 06:59 AM [facility] VITAMIN D, 25-HYDROXY Specimen Type: SERUM No comment entered. Ordering Provider: SILVIA REDDY Report Released Date/Time: Aug 11, 2024 03:58 PM Reporting Lab: [facility] [address] Performing Lab: [facility] [address] VITAMIN D, 25-HYDROXY 8.9 ng/mL L 30-96 Aug 14, 2024 06:59 AM [facility] B12 Specimen Type: SERUM No comment entered. Ordering Provider: SILVIA REDDY Report Released Date/Time: Aug 11, 2024 03:58 PM Reporting Lab: [facility] [address] Performing Lab: [facility] [place] [id number] B12 757 pg/mL 213-816 Aug 14, 2024 06:[address] [facility] COMPREHENSIVE METABOLIC PANEL Specimen Type: PLASMA Comment: No hemolysis noted. Ordering Provider: SILVIA REDDY Report Released Date/Time: Aug 11, 2024 03:58 PM Reporting Lab: [facility] [address] Performing Lab: [facility] [address] CREATININE 0.75 mg/dL 0.70-1.30 UREA NITROGEN 13.6 [...] 95.88 >60 Aug 14, 2024 06:59 AM [facility] CBC Specimen Type: BLOOD No comment entered. Ordering Provider: SILVIA REDDY Report Released Date/Time: Aug 11, 2024 03:58 PM Reporting Lab: [facility] [address] Performing Lab: [facility] [address] WBC 4.1 10*3/uL 3.6-11.2 RBC 3.20 10*6/uL [...] 10*3/uL 0.00-0.20 Aug 14, 2024 05:[address] [facility] GLUCOSE,BLOOD-poct (STL) Specimen Type: BLOOD Comment: Test Performed by: [id number] Meter #: [id number] Ordering Provider: SILVIA REDDY Report Released Date/Time: Aug 14, 2024 05:52 AM Reporting Lab: [facility] [address] Performing Lab: [facility] [address] GLUCOSE,BLOOD- poct (STL) 135 mg/dL H 72-99 Aug 13, 2024 04:[address] [facility] GLUCOSE,BLOOD-poct (STL) Specimen Type: BLOOD Comment: Test Performed by: [id number] Meter #: [id number] Ordering Provider: SILVIA REDDY Report Released Date/Time: Aug 13, 2024 04:41 PM Reporting Lab: [facility] [address] Performing Lab: [facility] [address] GLUCOSE,BLOOD- poct (STL) 181 mg/dL H -Aug 13, 2024 11:[address] [facility] GLUCOSE,BLOOD-poct (STL) Specimen Type: BLOOD Comment: Test Performed by: [id number] Meter #: [id number] Ordering Provider: SILVIA REDDY Report Released Date/Time: Aug 13, 2024 03:55 PM Reporting Lab: [facility] [address] Performing Lab: [facility] [place] [address] GLUCOSE,BLOOD- poct (STL) 140 mg/dL H Aug 13, 2024 05:[address] [facility] GLUCOSE,BLOOD-poct (STL) Specimen Type: BLOOD Comment: Test Performed by: [id number] Meter #: [id number] Ordering Provider: SILVIA REDDY Report Released Date/Time: Aug 13, 2024 06:20 AM Reporting Lab: [facility] [address] Performing Lab: [facility] [address] GLUCOSE,BLOOD- poct (STL) 112 mg/dL H Aug 12, 2024 04:[address] [facility] GLUCOSE,BLOOD-poct (STL) Specimen Type: BLOOD Comment: Test Performed by: [id number] Meter #: [id number] Ordering Provider: SILVIA REDDY Report Released Date/Time: Aug 12, 2024 04:47 PM Reporting Lab: [facility] [address] Performing Lab: [facility] [address] GLUCOSE,BLOOD- poct (STL) 128 mg/dL H 72-99 Aug 12, 2024 11:[address] [facility] GLUCOSE,BLOOD-poct (STL) Specimen Type: BLOOD Comment: Test Performed by: [id number] Meter #: [id number] Ordering Provider: SILVIA REDDY Report Released Date/Time: Aug 12, 2024 11:45 AM Reporting Lab: [facility] [address] Performing Lab: [facility] [place] [address] GLUCOSE,BLOOD- poct (STL) 188 mg/dL H -Aug 12, 2024 06:[address] [facility] GLUCOSE,BLOOD-poct (STL) Specimen Type: BLOOD Comment: Test Performed by: [id number] Meter #: [id number] Ordering Provider: SILVIA REDDY Report Released Date/Time: Aug 12, 2024 06:25 AM Reporting Lab: [facility] [address] Performing Lab: [facility] [address] GLUCOSE,BLOOD- poct (STL) 116 mg/dL H 72-99 Aug 11, 2024 04:[address] [facility] GLUCOSE,BLOOD-poct (STL) Specimen Type: BLOOD Comment: Test Performed by: [id number] Meter #: [id number] Ordering Provider: SILVIA REDDY Report Released Date/Time: Aug 11, 2024 04:27 PM Reporting Lab: [facility] [place] [address] Performing Lab: [facility] [address] GLUCOSE,BLOOD- poct (STL) 184 mg/dL H 72-99 Aug 11, 2024 01:[address] [facility] MRSA SURVL NARES DNA Specimen Type: NARES [...] Aug 11, 2024 02:03 PM Reporting Lab: [address] [address] Performing Lab: [address] [address] MRSA SURVL NARES DNA Negative Negative Jul 20, 2024 11:18 AM [facility] APTT Specimen Type: PLASMA No comment entered. Ordering Provider: MANUEL BAIRD Report Released Date/Time: Jul 19, 2024 04:00 PM Reporting Lab: [address] [address] Performing Lab: [address] [address] APTT 32.1 s 26.7-39.9 Jul 20, 2024 11:18 AM [facility] PT/INR NEW (L-NV) Specimen Type: PLASMA No comment entered. Ordering Provider: MANUEL BAIRD Report Released Date/Time: Jul 19, 2024 04:00 PM Reporting Lab: [address] [address] Performing Lab: [address] [address] PROTIME 14.4 s H 9.4-12.5 INR VALUE 1.3 {INR} Jul 20, 2024 11:18 AM [facility] CBC Specimen Type: BLOOD No comment entered. Ordering Provider: MANUEL BAIRD Report Released Date/Time: Jul 19, 2024 04:00 PM Reporting Lab: [facility] [address] [place] [address] Performing Lab: [address] [address] WBC 4.7 10*3/uL 3.6-11.2 RBC 4.86 10*6/uL [...] 1.6 1.0-7.0 Jul 17, 2024 08:02 AM [facility] BASIC METABOLIC PANEL Specimen Type: PLASMA Comment: No hemolysis noted. Ordering Provider: MARY SERNA Report Released Date/Time: Jun 07, 2024 01:43 PM Reporting Lab: [facility] [address] [place] [id number] Performing Lab: [address] [address] CREATININE 0.85 mg/dL 0.7-1.3 UREA NITROGEN 15.2 [...] Height Weight Body Mass Index Source Aug 12, 2024 10:30 PM 0 [facility] Aug 12, 2024 08:30 PM 98.6 83 129/76 18 92 [facility] Aug 12, 2024 12:41 PM 212.3 31 [facility] Aug 12, 2024 09:59 AM 97.7 68 113/70 18 97 [facility] Aug 12, 2024 06:23 AM 97.5 67 117/67 18 95 [facility] Advance Directives: All historical [...] ADVANCE DIRECTIVE DISCUSSION ERICK BARDALES [facility]
--- OUTSIDE RECORDS SUMMARY | 2024-11-17 04:01 | XMS_ITS ---
[place] DAILY HOSPITALIZATION DATA [facility] Encounter Summary Created on: November 16, 2024 CHET WALKER : 1950 Sex: Male Author Name [facility] [facility] [place] Address [address] [place] [address] Care Team Providers Care Dental Front Office Assistant Name Role Phone MANUEL BAIRD Primary Care [...] PART A Apr 08, 2017 PART A [id number] ASHLEY WALKER PATIENT Selected Encounter This section includes the information on record at [place] for the Encounter. Date/Time Encounter Type Encounter Description Reason Pro vider Source Aug 12, 2024 10:28 PM Inpatient Visit DAILY HOSPITALIZATION DATA LEYDI PARKER Encounter Template Text not used by [place] Plan of Treatment: Future Appointments (+ 6 [...] appointments. The data comes from all [facility]. Appointment Date/Time Appointment Type Appointme nt Facility Name Aug 24, 2024 10:00 AM AMBULATORY - MEDICINE [facility] Aug 24, 2024 10:30 AM AMBULATORY - MEDICINE [facility] Aug 30, 2024 09:30 AM AMBULATORY MEDICINE [facility] Aug 31, 2024 01:00 PM AMBULATORY - SURGERY [facility] Sep 21, 2024 01:30 PM AMBULATORY - MEDICINE [facility] Sep 22, 2024 11:00 AM AMBULATORY - MEDICINE [facility] Sep 29, 2024 12:30 PM AMBULATORY - MEDICINE [facility] Oct 02, 2024 09:30 AM AMBULATORY - MEDICINE [facility] Nov 20, 2024 10:30 AM AMBULATORY - SURGERY [facility] Nov 21, 2024 10:00 AM AMBULATORY - NONE [facility] Dec 11, 2024 10:30 AM AMBULATORY - MEDICINE [facility] Active, Pending, and Scheduled Orders This section includes a listing of several types of active, pending, and scheduled orders, including clinic medications orders, diagnostic test orders, procedure orders and consult orders; where the start date of the order is 45 days before the date of the Encounter or 45 days after the date of theEncounter. The data comes from all [facility]. Test Date/Time Test Type Test Details Facility Name Aug 02, 2024 12:00 AM Laboratory - Chemistry Order CBC BLOOD STAT SP [facility] Aug 02, 2024 12:00 AM Laboratory - Chemistry Order COMPREHENSIVE METABOLIC PANEL GREEN LI/HEP BLD/PLAS PLASMA SP [facility] Aug 17, 2024 03:47 PM Consult Order [facility] Cons Bedside [facility] Lab Results: +/- 30 days [...] Range Comment Aug 23, 2024 08:21 AM [facility] MAGNESIUM Specimen Type: PLASMA No comment entered. Ordering Provider: SILVIA REDDY Report Released Date/Time: Aug 22, 2024 11:26 AM Reporting Lab: [facility] [address] Performing Lab: [facility] [address] MAGNESIUM 1.8 mg/dL 1.6-2.6 Aug 23, 2024 08:21 AM [facility] CBC Specimen Type: BLOOD No comment entered. Ordering Provider: SILVIA REDDY Report Released Date/Time: Aug 22, 2024 11:19 AM Reporting Lab: [facility] [address] Performing Lab: [facility] [address] WBC 4.0 10*3/uL 3.6-11.2 RBC 3.65 10*6/uL [...] 10*3/uL 0.00-0.20 Aug 23, 2024 05:12 AM [facility] GLUCOSE,BLOOD-poct (STL) Specimen Type: BLOOD Comment: Test Performed by: [id number] Meter #: [id number] Ordering Provider: SILVIA REDDY Report Released Date/Time: Aug 23, 2024 05:23 AM Reporting Lab: [facility] [address] Performing Lab: [facility] [address] GLUCOSE,BLOOD- poct (STL) 99 mg/dL 72-99 Aug 23, 2024 02:45 AM [facility] OCCULT BLOOD FIT X1 SCREEN Specimen Type: FECES No comment entered. Ordering Provider: SILVIA REDYD Report Released Date/Time: Aug 22, 2024 11:23 AM Reporting Lab: [address] [address] Performing Lab: [address] [address] OCCULT BLOOD (FIT) #1 OF 1 Negative Negative Aug 22, 2024 07:30 PM [facility] OCCULT BLOOD FIT X1 SCREEN Specimen Type: FECES No comment entered. Ordering Provider: SILVIA REDDY Report Released Date/Time: Aug 22, 2024 11:23 AM Reporting Lab: [address] [address] Performing Lab: [address] [address] OCCULT BLOOD (FIT) #1 OF 1 Negative Negative Aug 22, 2024 06:15 PM [facility] OCCULT BLOOD FIT X1 SCREEN Specimen Type: FECES No comment entered. Ordering Provider: SILVIA REDDY Report Released Date/Time: Aug 22, 2024 11:23 AM Reporting Lab: [address] [address] Performing Lab: [facility] [address] [facility] [address] OCCULT BLOOD (FIT) #1 OF 1 Negative Negative Aug 22, 2024 04:24 PM [facility] GLUCOSE,BLOOD-poct (STL) Specimen Type: BLOOD Comment: Test Performed by: [id number] Meter #: [id number] Ordering Provider: SILVIA REDDY Report Released Date/Time: Aug 22, 2024 04:36 PM Reporting Lab: [facility] [address] Performing Lab: [facility] [address] GLUCOSE,BLOOD- poct (STL) 176 mg/dL H -Aug 22, 2024 04:23 PM [facility] GLUCOSE,BLOOD-poct (STL) Specimen Type: BLOOD Comment: Test Performed by: [id number] Meter #: [id number] Ordering Provider: SILVIA REDDY Report Released Date/Time: Aug 22, 2024 04:36 PM Reporting Lab: [facility] [address] Performing Lab: [facility] [address] GLUCOSE,BLOOD- poct (STL) 221 mg/dL H 72-Aug 22, 2024 11:15 AM [facility] GLUCOSE,BLOOD-poct (STL) Specimen Type: BLOOD Comment: Test Performed by: [id number] Meter #: [id number] Ordering Provider: SILVIA REDDY Report Released Date/Time: Aug 22, 2024 11:27 AM Reporting Lab: [facility] [address] Performing Lab: [facility] [address] GLUCOSE,BLOOD- poct (STL) 140 mg/dL H 72-Aug 22, 2024 08:03 AM [facility] FERRITIN Specimen Type: SERUM No comment entered. Ordering Provider: JUDIT PERKINS Report Released Date/Time: Aug 18, 2024 11:01 AM Reporting Lab: [facility] [address] [facility] [address] Performing Lab: [facility] [address] [place] [address] FERRITIN 79.50 ng/mL 22-275 Aug 22, 2024 08:03 AM [facility] IRON/TIBC PROFILE Specimen Type: SERUM No comment entered. Ordering Provider: JUDIT PERKINS Report Released Date/Time: Aug 18, 2024 11:01 AM Reporting Lab: [address] [address] Performing Lab: [address] [address] TIBC 283 ug/dL 250-450 TRANSFERRIN 226 mg/dL 163-344 IRON SATURATION 7 L 20-50 IRON 19 ug/dL L 65-175 Aug 22, 2024 08:03 AM [facility] B12 Specimen Type: SERUM No comment entered. Ordering Provider: JUDIT PERKINS Report Released Date/Time: Aug 18, 2024 11:01 AM Reporting Lab: [facility] [address] Performing Lab: [facility] [address] B12 631 pg/mL 213-816 Aug 22, 2024 08:03 AM [facility] COMPREHENSIVE METABOLIC PANEL Specimen Type: PLASMA Comment: No hemolysis noted. Ordering Provider: SILVIA REDDY Report Released Date/Time: Aug 17, 2024 01:18 PM Reporting Lab: [facility] [address] [facility] [address] Performing Lab: [address] [address] CREATININE 0.80 mg/dL 0.7-1.3 UREA NITROGEN 9.7 [...] Aug 22, 2024 08:03 AM [facility] CBC Specimen Type: BLOOD No comment entered. Ordering Provider: SILVIA REDDY Report Released Date/Time: Aug 17, 2024 01:18 PM Reporting Lab: [facility] [address] Performing Lab: [facility] [address] WBC 3.5 10*3/uL L 3.6-11.2 RBC 3.23 [...] NRBC% 0 Aug 22, 2024 05:03 AM [facility] GLUCOSE,BLOOD-poct (STL) Specimen Type: BLOOD Comment: Test Performed by: [id number] Meter #: [id number] Ordering Provider: SILVIA REDDY Report Released Date/Time: Aug 22, 2024 06:17 AM Reporting Lab: [facility] [address] Performing Lab: [facility] [address] GLUCOSE,BLOOD- poct (STL) 170 mg/dL H 72-Aug 21, 2024 04:32 PM [facility] GLUCOSE,BLOOD-poct (STL) Specimen Type: BLOOD Comment: Test Performed by: [id number] Meter #: [id number] Ordering Provider: SILVIA REDDY Report Released Date/Time: Aug 21, 2024 04:49 PM Reporting Lab: [facility] [address] Performing Lab: [facility] [address] GLUCOSE,BLOOD- poct (STL) 169 mg/dL H -Aug 21, 2024 11:53 AM [facility] GLUCOSE,BLOOD-poct (STL) Specimen Type: BLOOD Comment: Test Performed by: [id number] Meter #: [id number] Ordering Provider: SILVIA REDDY Report Released Date/Time: Aug 21, 2024 12:11 PM Reporting Lab: [facility] [address] Performing Lab: [facility] [address] GLUCOSE,BLOOD- poct (STL) 149 mg/dL H 72-Aug 21, 2024 05:10 AM [facility] GLUCOSE,BLOOD-poct (STL) Specimen Type: BLOOD Comment: Test Performed by: [id number] Meter #: [id number] Ordering Provider: SILVIA REDDY Report Released Date/Time: Aug 21, 2024 05:27 AM Reporting Lab: [facility] [place] [address] Performing Lab: [facility] [place] [address] GLUCOSE,BLOOD- poct (STL) 118 mg/dL H 72-99 Aug 20, 2024 04:38 PM [facility] GLUCOSE,BLOOD-poct (STL) Specimen Type: BLOOD Comment: Test Performed by: [id number] Meter #: [id number] Ordering Provider: SILVIA REDDY Report Released Date/Time: Aug 21, 2024 01:55 AM Reporting Lab: [facility] [place] [address] Performing Lab: [facility] [place] [address] GLUCOSE,BLOOD- poct (STL) 169 mg/dL H 72-Aug 20, 2024 04:36 PM [facility] GLUCOSE,BLOOD-poct (STL) Specimen Type: BLOOD Comment: Test Performed by: [id number] Meter #: [id number] Ordering Provider: SILVIA REDDY Report Released Date/Time: Aug 21, 2024 01:55 AM Reporting Lab: [facility] [place] [address] Performing Lab: [facility] [place] [address] GLUCOSE,BLOOD- poct (STL) 395 mg/dL H 72-99 Aug 20, 2024 11:45 AM [facility] GLUCOSE,BLOOD-poct (STL) Specimen Type: BLOOD Comment: Test Performed by: [id number] Meter #: [id number] Ordering Provider: SILVIA REDDY Report Released Date/Time: Aug 20, 2024 11:56 AM Reporting Lab: [facility] [place] [phone] Performing Lab: [facility] [address] GLUCOSE,BLOOD- poct (STL) 169 mg/dL H 72-Aug 20, 2024 05:06 AM [facility] GLUCOSE,BLOOD-poct (STL) Specimen Type: BLOOD Comment: Test Performed by: [id number] Meter #: [id number] Ordering Provider: SILVIA REDDY Report Released Date/Time: Aug 20, 2024 06:05 AM Reporting Lab: [facility] [address] Performing Lab: [facility] [address] GLUCOSE,BLOOD- poct (STL) 115 mg/dL H -Aug 19, 2024 04:23 PM [facility] GLUCOSE,BLOOD-poct (STL) Specimen Type: BLOOD Comment: Test Performed by: [id number] Meter #: [id number] Ordering Provider: SILVIA REDDY Report Released Date/Time: Aug 19, 2024 05:54 PM Reporting Lab: [facility] [address] Performing Lab: [facility] [address] GLUCOSE,BLOOD- poct (STL) 137 mg/dL H 72-Aug 19, 2024 11:28 AM [facility] GLUCOSE,BLOOD-poct (STL) Specimen Type: BLOOD Comment: Test Performed by: [id number] Meter #: [id number] Ordering Provider: SILVIA REDDY Report Released Date/Time: Aug 19, 2024 11:51 AM Reporting Lab: [facility] [address] Performing Lab: [facility] [address] GLUCOSE,BLOOD- poct (STL) 190 mg/dL H 72-99 Aug 19, 2024 05:21 AM [facility] GLUCOSE,BLOOD-poct (STL) Specimen Type: BLOOD Comment: Test Performed by: [id number] Meter #: [id number] Ordering Provider: SILVIA REDDY Report Released Date/Time: Aug 19, 2024 05:56 AM Reporting Lab: [facility] [address] Performing Lab: [facility] [address] GLUCOSE,BLOOD- poct (STL) 130 mg/dL H Aug 18, 2024 04:49 PM [facility] GLUCOSE,BLOOD-poct (STL) Specimen Type: BLOOD Comment: Test Performed by: [id number] Meter #: [id number] Ordering Provider: SILVIA REDDY Report Released Date/Time: Aug 18, 2024 05:01 PM Reporting Lab: [facility] [address] Performing Lab: [facility] [address] GLUCOSE,BLOOD- poct (STL) 129 mg/dL H Aug 18, 2024 11:23 AM [facility] GLUCOSE,BLOOD-poct (STL) Specimen Type: BLOOD Comment: Test Performed by: [id number] Meter #: [id number] Ordering Provider: SILVIA REDDY Report Released Date/Time: Aug 18, 2024 11:41 AM Reporting Lab: [facility] [address] Performing Lab: [facility] [address] GLUCOSE,BLOOD- poct (STL) 180 mg/dL H Aug 18, 2024 05:08 AM [facility] GLUCOSE,BLOOD-poct (STL) Specimen Type: BLOOD Comment: Test Performed by: [id number] Meter #: [id number] Ordering Provider: SILVIA REDDY Report Released Date/Time: Aug 18, 2024 05:31 AM Reporting Lab: [facility] [place] [address] Performing Lab: [facility] [place] [phone] GLUCOSE,BLOOD- poct (STL) 127 mg/dL H -Aug 17, 2024 07:32 PM [facility] GLUCOSE,BLOOD-poct (STL) Specimen Type: BLOOD Comment: Test Performed by: [id number] Meter #: [id number] Ordering Provider: SILVIA REDDY Report Released Date/Time: Aug 17, 2024 07:59 PM Reporting Lab: [facility] [place] [address] Performing Lab: [facility] [place] [address] GLUCOSE,BLOOD- poct (STL) 154 mg/dL H -Aug 17, 2024 04:24 PM [facility] GLUCOSE,BLOOD-poct (STL) Specimen Type: BLOOD Comment: Test Performed by: [id number] Meter #: [id number] Ordering Provider: SILVIA REDDY Report Released Date/Time: Aug 17, 2024 04:35 PM Reporting Lab: [facility] [place] [address] Performing Lab: [facility] [place] [address] GLUCOSE,BLOOD- poct (STL) 178 mg/dL H -Aug 17, 2024 05:09 AM [facility] GLUCOSE,BLOOD-poct (STL) Specimen Type: BLOOD Comment: Test Performed by: [id number] Meter #: [id number] Ordering Provider: SILVIA REDDY Report Released Date/Time: Aug 17, 2024 05:54 AM Reporting Lab: [facility] [place] [phone] Performing Lab: [facility] [address] GLUCOSE,BLOOD- poct (STL) 124 mg/dL H 72-Aug 16, 2024 07:40 PM [facility] GLUCOSE,BLOOD-poct (STL) Specimen Type: BLOOD Comment: Test Performed by: [id number] Meter #: [id number] Ordering Provider: SILVIA REDDY Report Released Date/Time: Aug 16, 2024 08:28 PM Reporting Lab: [facility] [address] Performing Lab: [facility] [address] GLUCOSE,BLOOD- poct (STL) 144 mg/dL H -Aug 16, 2024 04:19 PM [facility] GLUCOSE,BLOOD-poct (STL) Specimen Type: BLOOD Comment: Test Performed by: [id number] Meter #: [id number] Ordering Provider: SILVIA REDDY Report Released Date/Time: Aug 16, 2024 04:45 PM Reporting Lab: [facility] [address] Performing Lab: [facility] [address] GLUCOSE,BLOOD- poct (STL) 138 mg/dL H -Aug 16, 2024 11:52 AM [facility] GLUCOSE,BLOOD-poct (STL) Specimen Type: BLOOD Comment: Test Performed by: [id number] Meter #: [id number] Ordering Provider: SILVIA REDDY Report Released Date/Time: Aug 16, 2024 12:04 PM Reporting Lab: [facility] [address] Performing Lab: [facility] [address] GLUCOSE,BLOOD- poct (STL) 135 mg/dL H 72- Aug 16, 2024 05:24 AM [facility] GLUCOSE,BLOOD-poct (STL) Specimen Type: BLOOD Comment: Test Performed by: [id number] Meter #: [id number] Ordering Provider: SILVIA REDDY Report Released Date/Time: Aug 16, 2024 05:38 AM Reporting Lab: [facility] [address] Performing Lab: [facility] [address] GLUCOSE,BLOOD- poct (STL) 151 mg/dL H Aug 15, 2024 07:31 PM [facility] GLUCOSE,BLOOD-poct (STL) Specimen Type: BLOOD Comment: Test Performed by: [id number] Meter #: [id number] Ordering Provider: SILVIA REDDY Report Released Date/Time: Aug 15, 2024 08:07 PM Reporting Lab: [facility] [address] Performing Lab: [facility] [address] GLUCOSE,BLOOD- poct (STL) 173 mg/dL H Aug 15, 2024 04:18 PM [facility] GLUCOSE,BLOOD-poct (STL) Specimen Type: BLOOD Comment: Test Performed by: [id number] Meter #: [id number] Ordering Provider: SILVIA REDDY Report Released Date/Time: Aug 15, 2024 04:59 PM Reporting Lab: [facility] [address] Performing Lab: [facility] [address] GLUCOSE,BLOOD- poct (STL) 136 mg/dL H Aug 15, 2024 04:16 PM [facility] GLUCOSE,BLOOD-poct (STL) Specimen Type: BLOOD Comment: Test Performed by: [id number] Meter #: [id number] Ordering Provider: SILVIA REDDY Report Released Date/Time: Aug 15, 2024 04:59 PM Reporting Lab: [facility] [place] [address] Performing Lab: [facility] [address] GLUCOSE,BLOOD- poct (STL) 194 mg/dL H -Aug 15, 2024 11:39 AM [facility] GLUCOSE,BLOOD-poct (STL) Specimen Type: BLOOD Comment: Test Performed by: [id number] Meter #: [id number] Ordering Provider: SILVIA REDDY Report Released Date/Time: Aug 15, 2024 12:00 PM Reporting Lab: [facility] [place] [address] Performing Lab: [facility] [place] [address] GLUCOSE,BLOOD- poct (STL) 127 mg/dL H -Aug 15, 2024 05:07 AM [facility] GLUCOSE,BLOOD-poct (STL) Specimen Type: BLOOD Comment: Test Performed by: [id number] Meter #: [id number] Ordering Provider: SILVIA REDDY Report Released Date/Time: Aug 15, 2024 06:14 AM Reporting Lab: [facility] [place] [address] Performing Lab: [facility] [place] [address] GLUCOSE,BLOOD- poct (STL) 151 mg/dL H -Aug 14, 2024 04:22 PM [facility] GLUCOSE,BLOOD-poct (STL) Specimen Type: BLOOD Comment: Test Performed by: [id number] Meter #: [id number] Ordering Provider: SILVIA REDDY Report Released Date/Time: Aug 14, 2024 04:52 PM Reporting Lab: [facility] [place] [phone] Performing Lab: [facility] [address] GLUCOSE,BLOOD- poct (STL) 129 mg/dL H 72-99 Aug 14, 2024 11:21 AM [facility] GLUCOSE,BLOOD-poct (STL) Specimen Type: BLOOD Comment: Test Performed by: [id number] Meter #: [id number] Ordering Provider: SILVIA REDDY Report Released Date/Time: Aug 14, 2024 11:37 AM Reporting Lab: [facility] [address] Performing Lab: [facility] [address] GLUCOSE,BLOOD- poct (STL) 135 mg/dL H 72-Aug 14, 2024 06:59 AM [facility] QUANTIFERON-TB,4 TUBE Specimen Type: BLOOD Comment: [...] For additional information, please refer to http://education. [employer]/faq/XTV222 (This link is being provided for information/ educational purposes only.) Test Performed by [employer], [employer] [facility], [address] [place] [address] Tommie Garcia M.D., Ph.D., Director of Laboratories , [facility] [id number] Ordering Provider: SILVIA REDDY Report Released Date/Time: Aug 11, 2024 03:58 PM Reporting Lab: [facility] [address] [address] Performing Lab: [facility] [id number] [place] [address] .NIL - QUANTIFERON 0.04 [IU]/mL .MITOGEN-NIL 0.39 [IU]/mL .QUANTIFERON INDETERMINATE NEGATIVE .TB1-NIL <0.00 [IU]/mL .TB2-NIL <0.00 [IU]/mL Aug 14, 2024 06:59 AM [facility] MAGNESIUM Specimen Type: PLASMA Comment: No hemolysis noted. Ordering Provider: SILVIA REDDY Report Released Date/Time: Aug 11, 2024 03:58 PM Reporting Lab: [facility] [address] Performing Lab: [facility] [address] MAGNESIUM 1.9 mg/dL 1.6-2.6 Aug 14, 2024 06:59 AM [facility] B12 Specimen Type: SERUM No comment entered. Ordering Provider: SILVIA REDDY Report Released Date/Time: Aug 11, 2024 03:58 PM Reporting Lab: [facility] [address] Performing Lab: [facility] [address] B12 757 pg/mL 213-816 Aug 14, 2024 06:59 AM [facility] FOLATE (STL-MA) Specimen Type: SERUM No comment entered. Ordering Provider: SILVIA REDDY Report Released Date/Time: Aug 11, 2024 03:58 PM Reporting Lab: [facility] [address] Performing Lab: [facility] [address] FOLATE (STL-MA) 6.8 ng/mL L 7-20 Aug 14, 2024 06:59 AM [facility] VITAMIN D, 25-HYDROXY Specimen Type: SERUM No comment entered. Ordering Provider: SILVIA REDDY Report Released Date/Time: Aug 11, 2024 03:58 PM Reporting Lab: [facility] [id number] Performing Lab: [facility] [phone] VITAMIN D, 25-HYDROXY 8.9 ng/mL L 30-96 Aug 14, 2024 06:59 AM [facility] COMPREHENSIVE METABOLIC PANEL Specimen Type: PLASMA Comment: No hemolysis noted. Ordering Provider: SILVIA REDDY Report Released Date/Time: Aug 11, 2024 03:58 PM Reporting Lab: [facility] [phone] Performing Lab: [facility] [phone] CREATININE 0.75 mg/dL 0.70-1.30 UREA NITROGEN 13.6 [...] 95.88 >60 Aug 14, 2024 06:59 AM [facility] CBC Specimen Type: BLOOD No comment entered. Ordering Provider: SILVIA REDDY Report Released Date/Time: Aug 11, 2024 03:58 PM Reporting Lab: [facility] [phone] Performing Lab: [facility] [phone] WBC 4.1 10*3/uL 3.6-11.2 RBC 3.20 10*6/uL [...] 10*3/uL 0.00-0.20 Aug 14, 2024 05:08 AM [facility] GLUCOSE,BLOOD-poct ([facility]) Specimen Type: BLOOD Comment: Test Performed by: [id number] Meter #: [id number] Ordering Provider: SILVIA REDDY Report Released Date/Time: Aug 14, 2024 05:52 AM Reporting Lab: [facility] [phone] Performing Lab: [facility] [phone] GLUCOSE,BLOOD- poct (STL) 135 mg/dL H 72-99 Aug 13, 2024 04:27 PM [facility] GLUCOSE,BLOOD-poct (STL) Specimen Type: BLOOD Comment: Test Performed by: [id number] Meter #: [id number] Ordering Provider: SILVIA REDDY Report Released Date/Time: Aug 13, 2024 04:41 PM Reporting Lab: [facility] [address] Performing Lab: [facility] [address] GLUCOSE,BLOOD- poct (STL) 181 mg/dL H -Aug 13, 2024 11:33 AM [facility] GLUCOSE,BLOOD-poct (STL) Specimen Type: BLOOD Comment: Test Performed by: [id number] Meter #: [id number] Ordering Provider: SILVIA REDDY Report Released Date/Time: Aug 13, 2024 03:55 PM Reporting Lab: [facility] [address] Performing Lab: [facility] [place] [address] GLUCOSE,BLOOD- poct (STL) 140 mg/dL H Aug 13, 2024 05:54 AM [facility] GLUCOSE,BLOOD-poct (STL) Specimen Type: BLOOD Comment: Test Performed by: [id number] Meter #: [id number] Ordering Provider: SILVIA REDDY Report Released Date/Time: Aug 13, 2024 06:20 AM Reporting Lab: [facility] [address] Performing Lab: [facility] [address] GLUCOSE,BLOOD- poct (STL) 112 mg/dL H Aug 12, 2024 04:35 PM [facility] GLUCOSE,BLOOD-poct (STL) Specimen Type: BLOOD Comment: Test Performed by: [id number] Meter #: [id number] Ordering Provider: SILVIA REDDY Report Released Date/Time: Aug 12, 2024 04:47 PM Reporting Lab: [facility] [address] Performing Lab: [facility] [address] GLUCOSE,BLOOD- poct (STL) 128 mg/dL H 72-99 Aug 12, 2024 11:26 AM [facility] GLUCOSE,BLOOD-poct (STL) Specimen Type: BLOOD Comment: Test Performed by: [id number] Meter #: [id number] Ordering Provider: SILVIA REDDY Report Released Date/Time: Aug 12, 2024 11:45 AM Reporting Lab: [facility] [address] Performing Lab: [facility] [address] GLUCOSE,BLOOD- poct (STL) 188 mg/dL H -Aug 12, 2024 06:13 AM [facility] GLUCOSE,BLOOD-poct (STL) Specimen Type: BLOOD Comment: Test Performed by: [id number] Meter #: [id number] Ordering Provider: SILVIA REDDY Report Released Date/Time: Aug 12, 2024 06:25 AM Reporting Lab: [facility] [address] Performing Lab: [facility] [address] GLUCOSE,BLOOD- poct (STL) 116 mg/dL H 72-99 Aug 11, 2024 04:10 PM [facility] GLUCOSE,BLOOD-poct (STL) Specimen Type: BLOOD Comment: Test Performed by: [id number] Meter #: [id number] Ordering Provider: SILVIA REDDY Report Released Date/Time: Aug 11, 2024 04:27 PM Reporting Lab: [facility] [place] [address] Performing Lab: [facility] [address] GLUCOSE,BLOOD- poct (STL) 184 mg/dL H 72-99 Aug 11, 2024 01:44 PM [facility] MRSA SURVL NARES DNA Specimen [...] Aug 11, 2024 02:03 PM Reporting Lab: [address] [address] Performing Lab: [address] [address] MRSA SURVL NARES DNA Negative Negative Jul 20, 2024 11:18 AM [facility] APTT Specimen Type: PLASMA No comment entered. Ordering Provider: MANUEL BAIRD Report Released Date/Time: Jul 19, 2024 04:00 PM Reporting Lab: [address] [address] Performing Lab: [address] [address] APTT 32.1 s 26.7-39.9 Jul 20, 2024 11:18 AM [facility] PT/INR NEW ([place]) Specimen Type: PLASMA No comment entered. Ordering Provider: MANUEL BAIRD Report Released Date/Time: Jul 19, 2024 04:00 PM Reporting Lab: [address] [address] Performing Lab: [address] [address] PROTIME 14.4 s H 9.4-12.5 INR VALUE 1.3 {INR} Jul 20, 2024 11:18 AM [facility] CBC Specimen Type: BLOOD No comment entered. Ordering Provider: MANUEL BAIRD Report Released Date/Time: Jul 19, 2024 04:00 PM Reporting Lab: [facility] [address] [facility] [address] Performing Lab: [facility] [address] [place] [address] WBC 4.7 10*3/uL 3.6-11.2 RBC 4.86 10*6/uL [...] 1.6 1.0-7.0 Jul 17, 2024 08:02 AM [facility] BASIC METABOLIC PANEL Specimen Type: PLASMA Comment: No hemolysis noted. Ordering Provider: MARY SERNA Report Released Date/Time: Jun 07, 2024 01:43 PM Reporting Lab: [facility] [address] [facility] [address] Performing Lab: [address] [address] CREATININE 0.85 mg/dL 0.7-1.3 UREA NITROGEN 15.2 [...] Source Aug 12, 2024 10:30 PM 0 [facility] Aug 12, 2024 08:30 PM 98.6 83 129/76 18 92 [facility] Aug 12, 2024 12:41 PM 212.3 31 [facility] Aug 12, 2024 09:59 AM 97.7 68 113/70 18 97 [facility] Aug 12, 2024 06:23 AM 97.5 67 117/67 18 95 [facility] Advance Directives: All historical [...] 19, 2017 ADVANCE DIRECTIVE DISCUSSION ERICK BARDALES [facility]
--- OUTSIDE RECORDS SUMMARY | 2024-11-17 04:01 | XMS_ITS ---
[place] DAILY HOSPITALIZATION DATA [facility] Encounter Summary Created on: November 16, 2024 CHET WALKER : 1950 Sex: Male Author Name [facility] [place] [facility] [place] Address [address] [place] [address] Care Team Providers Care Branch Mechanic Name Role Phone MANUEL BAIRD Primary Care [...] PART A Apr 08, 2017 PART A [id number] ASHLEY WALKER PATIENT Selected Encounter This section includes the information on record at [place] for the Encounter. Date/Time Encounter Type Encounter Description Reason Pro vider Source Aug 12, 2024 10:30 AM Inpatient Visit DAILY HOSPITALIZATION DATA [facility] Encounter Template Text not used by [place] [...] 20 appointments. The data comes from all [facility]. Appointment Date/Time Appointment Type Appointme nt Facility Name Aug 24, 2024 10:00 AM AMBULATORY - MEDICINE [facility] Aug 24, 2024 10:30 AM AMBULATORY - MEDICINE [facility] Aug 30, 2024 09:30 AM AMBULATORY MEDICINE [facility] Aug 31, 2024 01:00 PM AMBULATORY - SURGERY [facility] Sep 21, 2024 01:30 PM AMBULATORY - MEDICINE [facility] Sep 22, 2024 11:00 AM AMBULATORY - MEDICINE [facility] Sep 29, 2024 12:30 PM AMBULATORY - MEDICINE [facility] Oct 02, 2024 09:30 AM AMBULATORY - MEDICINE [facility] Nov 20, 2024 10:30 AM AMBULATORY - SURGERY [facility] Nov 21, 2024 10:00 AM AMBULATORY - NONE [facility] Dec 11, 2024 10:30 AM AMBULATORY - MEDICINE [facility] Active, Pending, and Scheduled Orders This section includes a listing of several types of active, pending, and scheduled orders, including clinic medications orders, diagnostic test orders, procedure orders and consult orders; where the start date of the order is 45 days before the date of the Encounter or 45 days after the date of theEncounter. The data comes from all [facility]. Test Date/Time Test Type Test Details Facility Name Aug 02, 2024 12:00 AM Laboratory - Chemistry Order CBC BLOOD STAT SP [facility] Aug 02, 2024 12:00 AM Laboratory - Chemistry Order COMPREHENSIVE METABOLIC PANEL GREEN LI/HEP BLD/PLAS PLASMA SP [facility] Aug 17, 2024 03:47 PM Consult Order [facility] Cons Bedside [facility] Lab Results: +/- 30 days of the [...] Range Comment Aug 23, 2024 08:21 AM [facility] MAGNESIUM Specimen Type: PLASMA No comment entered. Ordering Provider: SILVIA REDDY Report Released Date/Time: Aug 22, 2024 11:26 AM Reporting Lab: [facility] #1 [facility] [address] Performing Lab: [facility] #1 [facility] [address] MAGNESIUM 1.8 mg/dL 1.6-2.6 Aug 23, 2024 08:21 AM [facility] CBC Specimen Type: BLOOD No comment entered. Ordering Provider: SILVIA REDDY Report Released Date/Time: Aug 22, 2024 11:19 AM Reporting Lab: [facility]1 [facility] [address] Performing Lab: [facility] #1 [facility] [address] WBC 4.0 10*3/uL 3.6-11.2 RBC 3.65 10*6/uL [...] 10*3/uL 0.00-0.20 Aug 23, 2024 05:12 AM [facility] GLUCOSE,BLOOD-poct (STL) Specimen Type: BLOOD Comment: Test Performed by: [id number] Meter #: [id number] Ordering Provider: SILVIA REDDY Report Released Date/Time: Aug 23, 2024 05:23 AM Reporting Lab: [facility]1 [facility] [address] Performing Lab: [facility] #1 [facility] [address] GLUCOSE,BLOOD- poct (STL) 99 mg/dL 72-99 Aug 23, 2024 02:45 AM [facility] OCCULT BLOOD FIT X1 SCREEN Specimen Type: FECES No comment entered. Ordering Provider: SILVIA REDDY Report Released Date/Time: Aug 22, 2024 11:23 AM Reporting Lab: [address] [address] Performing Lab: [address] [address] OCCULT BLOOD (FIT) #1 OF 1 Negative Negative Aug 22, 2024 07:30 PM [facility] OCCULT BLOOD FIT X1 SCREEN Specimen Type: FECES No comment entered. Ordering Provider: SILVIA REDDY Report Released Date/Time: Aug 22, 2024 11:23 AM Reporting Lab: [address] [address] Performing Lab: [address] [address] OCCULT BLOOD (FIT) #1 OF 1 Negative Negative Aug 22, 2024 06:15 PM [facility] OCCULT BLOOD FIT X1 SCREEN Specimen Type: FECES No comment entered. Ordering Provider: SILVIA REDDY Report Released Date/Time: Aug 22, 2024 11:23 AM Reporting Lab: [address] [address] Performing Lab: [facility] [address] [facility] [address] OCCULT BLOOD (FIT) #1 OF 1 Negative Negative Aug 22, 2024 04:24 PM [facility] GLUCOSE,BLOOD-poct (STL) Specimen Type: BLOOD Comment: Test Performed by: [id number] Meter #: [id number] Ordering Provider: SILVIA REDDY Report Released Date/Time: Aug 22, 2024 04:36 PM Reporting Lab: [facility]1 [facility] [address] Performing Lab: [facility] #1 [facility] [address] GLUCOSE,BLOOD- poct (STL) 176 mg/dL H -Aug 22, 2024 04:23 PM [facility] GLUCOSE,BLOOD-poct (STL) Specimen Type: BLOOD Comment: Test Performed by: [id number] Meter #: [id number] Ordering Provider: SILVIA REDDY Report Released Date/Time: Aug 22, 2024 04:36 PM Reporting Lab: [facility]1 [facility] [address] Performing Lab: [facility]1 [facility] [address] GLUCOSE,BLOOD- poct (STL) 221 mg/dL H 72-Aug 22, 2024 11:15 AM [facility] GLUCOSE,BLOOD-poct (STL) Specimen Type: BLOOD Comment: Test Performed by: [id number] Meter #: [id number] Ordering Provider: SILVIA REDDY Report Released Date/Time: Aug 22, 2024 11:27 AM Reporting Lab: [facility]1 [facility] [address] Performing Lab: [facility] #1 [facility] [address] GLUCOSE,BLOOD- poct (STL) 140 mg/dL H 72-Aug 22, 2024 08:03 AM [facility] FERRITIN Specimen Type: SERUM No comment entered. Ordering Provider: JUDIT PERKINS Report Released Date/Time: Aug 18, 2024 11:01 AM Reporting Lab: [facility] [address] [facility] [address] Performing Lab: [facility] [address] [facility] [address] FERRITIN 79.50 ng/mL 22-275 Aug 22, 2024 08:03 AM [facility] IRON/TIBC PROFILE Specimen Type: SERUM No comment entered. Ordering Provider: JUDIT PERKINS Report Released Date/Time: Aug 18, 2024 11:01 AM Reporting Lab: [address] [address] Performing Lab: [address] [address] TIBC 283 ug/dL 250-450 TRANSFERRIN 226 mg/dL 163-344 IRON SATURATION 7 L 20-50 IRON 19 ug/dL L 65-175 Aug 22, 2024 08:03 AM [facility] B12 Specimen Type: SERUM No comment entered. Ordering Provider: JUDIT PERKINS Report Released Date/Time: Aug 18, 2024 11:01 AM Reporting Lab: [facility]1 [facility] [address] Performing Lab: [facility] #1 [facility] [address] B12 631 pg/mL 213-816 Aug 22, 2024 08:03 AM [facility] COMPREHENSIVE METABOLIC PANEL Specimen Type: PLASMA Comment: No hemolysis noted. Ordering Provider: SILVIA REDDY Report Released Date/Time: Aug 17, 2024 01:18 PM Reporting Lab: [facility] [address] [facility] [address] Performing Lab: [address] [address] CREATININE 0.80 mg/dL 0.7-1.3 UREA NITROGEN 9.7 [...] >60 Aug 22, 2024 08:03 AM [facility] CBC Specimen Type: BLOOD No comment entered. Ordering Provider: SILVIA REDDY Report Released Date/Time: Aug 17, 2024 01:18 PM Reporting Lab: [facility]1 [facility] [address] Performing Lab: [facility] #1 [facility] [address] WBC 3.5 10*3/uL L 3.6-11.2 RBC 3.23 [...] NRBC% 0 Aug 22, 2024 05:03 AM [facility] GLUCOSE,BLOOD-poct (STL) Specimen Type: BLOOD Comment: Test Performed by: [id number] Meter #: [id number] Ordering Provider: SILVIA REDDY Report Released Date/Time: Aug 22, 2024 06:17 AM Reporting Lab: [facility] #1 [facility] [address] Performing Lab: [facility] #1 [facility] [address] GLUCOSE,BLOOD- poct (STL) 170 mg/dL H 72-Aug 21, 2024 04:32 PM [facility] GLUCOSE,BLOOD-poct (STL) Specimen Type: BLOOD Comment: Test Performed by: [id number] Meter #: [id number] Ordering Provider: SILVIA REDDY Report Released Date/Time: Aug 21, 2024 04:49 PM Reporting Lab: [facility]1 [facility] [address] Performing Lab: [facility] #1 [facility] [address] GLUCOSE,BLOOD- poct (STL) 169 mg/dL H -99 Aug 21, 2024 11:53 AM [facility] GLUCOSE,BLOOD-poct (STL) Specimen Type: BLOOD Comment: Test Performed by: [id number] Meter #: [id number] Ordering Provider: SILVIA REDDY Report Released Date/Time: Aug 21, 2024 12:11 PM Reporting Lab: [facility] #1 [facility] [address] Performing Lab: [facility] [address] GLUCOSE,BLOOD- poct (STL) 149 mg/dL H 72-99 Aug 21, 2024 05:10 AM [facility] GLUCOSE,BLOOD-poct (STL) Specimen Type: BLOOD Comment: Test Performed by: [id number] Meter #: [id number] Ordering Provider: SILVIA REDDY Report Released Date/Time: Aug 21, 2024 05:27 AM Reporting Lab: [facility] #[address] [place] [address] Performing Lab: [facility] #1 [place] [id number] GLUCOSE,BLOOD- poct (STL) 118 mg/dL H 72-99 Aug 20, 2024 04:38 PM [facility] GLUCOSE,BLOOD-poct (STL) Specimen Type: BLOOD Comment: Test Performed by: [id number] Meter #: [id number] Ordering Provider: SILVIA REDDY Report Released Date/Time: Aug 21, 2024 01:55 AM Reporting Lab: [facility] #[address] [place] [address] Performing Lab: [facility] #[address] [place] [address] GLUCOSE,BLOOD- poct (STL) 169 mg/dL H 72-Aug 20, 2024 04:36 PM [facility] GLUCOSE,BLOOD-poct (STL) Specimen Type: BLOOD Comment: Test Performed by: [id number] Meter #: [id number] Ordering Provider: SILVIA REDDY Report Released Date/Time: Aug 21, 2024 01:55 AM Reporting Lab: [facility] [place] [address] Performing Lab: [facility] #[address] [place] [address] GLUCOSE,BLOOD- poct (STL) 395 mg/dL H 72-99 Aug 20, 2024 11:45 AM [facility] GLUCOSE,BLOOD-poct (STL) Specimen Type: BLOOD Comment: Test Performed by: [id number] Meter #: [id number] Ordering Provider: SILVIA REDDY Report Released Date/Time: Aug 20, 2024 11:56 AM Reporting Lab: [facility]1 [facility] [address] Performing Lab: [facility] #1 [facility] [address] GLUCOSE,BLOOD- poct (STL) 169 mg/dL H 72-Aug 20, 2024 05:06 AM [facility] GLUCOSE,BLOOD-poct (STL) Specimen Type: BLOOD Comment: Test Performed by: [id number] Meter #: [id number] Ordering Provider: SILVIA REDDY Report Released Date/Time: Aug 20, 2024 06:05 AM Reporting Lab: [facility] #1 [facility] [address] Performing Lab: [facility] #1 [facility] [address] GLUCOSE,BLOOD- poct (STL) 115 mg/dL H 72-Aug 19, 2024 04:23 PM [facility] GLUCOSE,BLOOD-poct (STL) Specimen Type: BLOOD Comment: Test Performed by: [id number] Meter #: [id number] Ordering Provider: SILVIA REDDY Report Released Date/Time: Aug 19, 2024 05:54 PM Reporting Lab: [facility] #1 [facility] [address] Performing Lab: [facility] #1 [facility] [address] GLUCOSE,BLOOD- poct (STL) 137 mg/dL H 72-99 Aug 19, 2024 11:28 AM [facility] GLUCOSE,BLOOD-poct (STL) Specimen Type: BLOOD Comment: Test Performed by: [id number] Meter #: [id number] Ordering Provider: SILVIA REDDY Report Released Date/Time: Aug 19, 2024 11:51 AM Reporting Lab: [facility] #1 [facility] [address] Performing Lab: [facility] #1 [facility] [address] GLUCOSE,BLOOD- poct (STL) 190 mg/dL H 72-99 Aug 19, 2024 05:21 AM [facility] GLUCOSE,BLOOD-poct (STL) Specimen Type: BLOOD Comment: Test Performed by: [id number] Meter #: [id number] Ordering Provider: SILVIA REDDY Report Released Date/Time: Aug 19, 2024 05:56 AM Reporting Lab: [facility] #1 [facility] [address] Performing Lab: [facility] #1 [facility] [address] GLUCOSE,BLOOD- poct (STL) 130 mg/dL H Aug 18, 2024 04:49 PM [facility] GLUCOSE,BLOOD-poct (STL) Specimen Type: BLOOD Comment: Test Performed by: [id number] Meter #: [id number] Ordering Provider: SILVIA REDDY Report Released Date/Time: Aug 18, 2024 05:01 PM Reporting Lab: [facility]1 [facility] [address] Performing Lab: [facility] #1 [facility] [address] GLUCOSE,BLOOD- poct (STL) 129 mg/dL H Aug 18, 2024 11:23 AM [facility] GLUCOSE,BLOOD-poct (STL) Specimen Type: BLOOD Comment: Test Performed by: [id number] Meter #: [id number] Ordering Provider: SILVIA REDDY Report Released Date/Time: Aug 18, 2024 11:41 AM Reporting Lab: [facility] #1 [facility] [address] Performing Lab: [facility] #1 [facility] [address] GLUCOSE,BLOOD- poct (STL) 180 mg/dL H Aug 18, 2024 05:08 AM [facility] GLUCOSE,BLOOD-poct (STL) Specimen Type: BLOOD Comment: Test Performed by: [id number] Meter #: [id number] Ordering Provider: SILVIA REDDY Report Released Date/Time: Aug 18, 2024 05:31 AM Reporting Lab: [facility] [place] [address] Performing Lab: [facility] #1 [facility] [address] GLUCOSE,BLOOD- poct (STL) 127 mg/dL H -Aug 17, 2024 07:32 PM [facility] GLUCOSE,BLOOD-poct (STL) Specimen Type: BLOOD Comment: Test Performed by: [id number] Meter #: [id number] Ordering Provider: SILVIA REDDY Report Released Date/Time: Aug 17, 2024 07:59 PM Reporting Lab: [facility] #1 [place] [address] Performing Lab: [facility] #1 [place] [address] GLUCOSE,BLOOD- poct (STL) 154 mg/dL H -Aug 17, 2024 04:24 PM [facility] GLUCOSE,BLOOD-poct (STL) Specimen Type: BLOOD Comment: Test Performed by: [id number] Meter #: [id number] Ordering Provider: SILVIA REDDY Report Released Date/Time: Aug 17, 2024 04:35 PM Reporting Lab: [facility]1 [place] [address] Performing Lab: [facility] #1 [place] [address] GLUCOSE,BLOOD- poct (STL) 178 mg/dL H -Aug 17, 2024 05:09 AM [facility] GLUCOSE,BLOOD-poct (STL) Specimen Type: BLOOD Comment: Test Performed by: [id number] Meter #: [id number] Ordering Provider: SILVIA REDDY Report Released Date/Time: Aug 17, 2024 05:54 AM Reporting Lab: [facility]1 [facility] [address] Performing Lab: [facility] #1 [facility] [address] GLUCOSE,BLOOD- poct (STL) 124 mg/dL H 72-Aug 16, 2024 07:40 PM [facility] GLUCOSE,BLOOD-poct (STL) Specimen Type: BLOOD Comment: Test Performed by: [id number] Meter #: [id number] Ordering Provider: SILVIA REDDY Report Released Date/Time: Aug 16, 2024 08:28 PM Reporting Lab: [facility] #1 [facility] [address] Performing Lab: [facility] #1 [facility] [address] GLUCOSE,BLOOD- poct (STL) 144 mg/dL H -Aug 16, 2024 04:19 PM [facility] GLUCOSE,BLOOD-poct (STL) Specimen Type: BLOOD Comment: Test Performed by: [id number] Meter #: [id number] Ordering Provider: SILVIA REDDY Report Released Date/Time: Aug 16, 2024 04:45 PM Reporting Lab: [facility] #1 [facility] [address] Performing Lab: [facility] #1 [facility] [address] GLUCOSE,BLOOD- poct (STL) 138 mg/dL H 72-Aug 16, 2024 11:52 AM [facility] GLUCOSE,BLOOD-poct (STL) Specimen Type: BLOOD Comment: Test Performed by: [id number] Meter #: [id number] Ordering Provider: SILVIA REDDY Report Released Date/Time: Aug 16, 2024 12:04 PM Reporting Lab: [facility] #1 [facility] [address] Performing Lab: [facility] #1 [facility] [address] GLUCOSE,BLOOD- poct (STL) 135 mg/dL H 72-99 Aug 16, 2024 05:24 AM [facility] GLUCOSE,BLOOD-poct (STL) Specimen Type: BLOOD Comment: Test Performed by: [id number] Meter #: [id number] Ordering Provider: SILVIA REDDY Report Released Date/Time: Aug 16, 2024 05:38 AM Reporting Lab: [facility] #1 [facility] [address] Performing Lab: [facility] #1 [facility] [address] GLUCOSE,BLOOD- poct (STL) 151 mg/dL H Aug 15, 2024 07:31 PM [facility] GLUCOSE,BLOOD-poct (STL) Specimen Type: BLOOD Comment: Test Performed by: [id number] Meter #: [id number] Ordering Provider: SILVIA REDDY Report Released Date/Time: Aug 15, 2024 08:07 PM Reporting Lab: [facility]1 [facility] [address] Performing Lab: [facility] #1 [facility] [address] GLUCOSE,BLOOD- poct (STL) 173 mg/dL H Aug 15, 2024 04:18 PM [facility] GLUCOSE,BLOOD-poct (STL) Specimen Type: BLOOD Comment: Test Performed by: [id number] Meter #: [id number] Ordering Provider: SILVIA REDDY Report Released Date/Time: Aug 15, 2024 04:59 PM Reporting Lab: [facility]1 [facility] [address] Performing Lab: [facility] #1 [facility] [address] GLUCOSE,BLOOD- poct (STL) 136 mg/dL H Aug 15, 2024 04:16 PM [facility] GLUCOSE,BLOOD-poct (STL) Specimen Type: BLOOD Comment: Test Performed by: [id number] Meter #: [id number] Ordering Provider: SILVIA REDDY Report Released Date/Time: Aug 15, 2024 04:59 PM Reporting Lab: [facility] #[address] [place] [address] Performing Lab: [facility] #1 [facility] [address] GLUCOSE,BLOOD- poct (STL) 194 mg/dL H 72-Aug 15, 2024 11:39 AM [facility] GLUCOSE,BLOOD-poct (STL) Specimen Type: BLOOD Comment: Test Performed by: [id number] Meter #: [id number] Ordering Provider: SILVIA REDDY Report Released Date/Time: Aug 15, 2024 12:00 PM Reporting Lab: [facility] #[address] [place] [address] Performing Lab: [facility] #[address] [place] [address] GLUCOSE,BLOOD- poct (STL) 127 mg/dL H -Aug 15, 2024 05:07 AM [facility] GLUCOSE,BLOOD-poct (STL) Specimen Type: BLOOD Comment: Test Performed by: [id number] Meter #: [id number] Ordering Provider: SILVIA REDDY Report Released Date/Time: Aug 15, 2024 06:14 AM Reporting Lab: [facility] #[address] [place] [address] Performing Lab: [facility] #[address] [place] [address] GLUCOSE,BLOOD- poct (STL) 151 mg/dL H -Aug 14, 2024 04:22 PM [facility] GLUCOSE,BLOOD-poct (STL) Specimen Type: BLOOD Comment: Test Performed by: [id number] Meter #: [id number] Ordering Provider: SILVIA REDDY Report Released Date/Time: Aug 14, 2024 04:52 PM Reporting Lab: [facility]1 [facility] [address] Performing Lab: [facility] #1 [facility] [address] GLUCOSE,BLOOD- poct (STL) 129 mg/dL H 72-99 Aug 14, 2024 11:21 AM [facility] GLUCOSE,BLOOD-poct (STL) Specimen Type: BLOOD Comment: Test Performed by: [id number] Meter #: [id number] Ordering Provider: SILVIA REDDY Report Released Date/Time: Aug 14, 2024 11:37 AM Reporting Lab: [facility]1 [facility] [address] Performing Lab: [facility] #1 [facility] [address] GLUCOSE,BLOOD- poct (STL) 135 mg/dL H 72-Aug 14, 2024 06:59 AM [facility] QUANTIFERON-TB,4 TUBE Specimen Type: BLOOD [...] For additional information, please refer to http://education. OfferIQ/faq/KDQ036 (This link is being provided for information/ educational purposes only.) Test Performed by [employer], [place] [facility], [address] [place] [address] Tommie Garcia M.D., Ph.D., Director of Laboratories , [facility] [id number] Ordering Provider: SILVIA REDDY Report Released Date/Time: Aug 11, 2024 03:58 PM Reporting Lab: [facility] [address] [facility] [address] Performing Lab: [facility] [id number] [place] [address] .NIL - QUANTIFERON 0.04 [IU]/mL .MITOGEN-NIL 0.39 [IU]/mL .QUANTIFERON INDETERMINATE NEGATIVE .TB1-NIL <0.00 [IU]/mL .TB2-NIL <0.00 [IU]/mL Aug 14, 2024 06:59 AM [facility] MAGNESIUM Specimen Type: PLASMA Comment: No hemolysis noted. Ordering Provider: SILVIA REDDY Report Released Date/Time: Aug 11, 2024 03:58 PM Reporting Lab: [facility]1 [facility] [phone] Performing Lab: [facility]1 [facility] [phone] MAGNESIUM 1.9 mg/dL 1.6-2.6 Aug 14, 2024 06:59 AM [facility] B12 Specimen Type: SERUM No comment entered. Ordering Provider: SILVIA REDDY Report Released Date/Time: Aug 11, 2024 03:58 PM Reporting Lab: [facility]1 [facility] [phone] Performing Lab: [facility]1 [facility] [phone] B12 757 pg/mL 213-816 Aug 14, 2024 06:59 AM [facility] VITAMIN D, 25-HYDROXY Specimen Type: SERUM No comment entered. Ordering Provider: SILVIA REDDY Report Released Date/Time: Aug 11, 2024 03:58 PM Reporting Lab: [facility]1 [facility] [id number] Performing Lab: [facility]1 [facility] [phone] VITAMIN D, 25-HYDROXY 8.9 ng/mL L 30-96 Aug 14, 2024 06:59 AM [facility] Specimen Type: SERUM No comment entered. Ordering Provider: SILVIA REDDY Report Released Date/Time: Aug 11, 2024 03:58 PM Reporting Lab: [facility]1 [facility] [id number] Performing Lab: [facility] #1 [facility] [id number] FOLATE (L-GA) 6.8 ng/mL L 7-20 Aug 14, 2024 06:59 AM [facility] CBC Specimen Type: BLOOD No comment entered. Ordering Provider: SILVIA REDDY Report Released Date/Time: Aug 11, 2024 03:58 PM Reporting Lab: [facility]1 [facility] [address] Performing Lab: [facility] #1 [facility] [address] WBC 4.1 10*3/uL 3.6-11.2 RBC 3.20 10*6/uL [...] 10*3/uL 0.00-0.20 Aug 14, 2024 06:59 AM [facility] COMPREHENSIVE METABOLIC PANEL Specimen Type: PLASMA Comment: No hemolysis noted. Ordering Provider: SILVIA REDDY Report Released Date/Time: Aug 11, 2024 03:58 PM Reporting Lab: [facility]1 [facility] [address] Performing Lab: [facility] #1 [place] [phone] CREATININE 0.75 mg/dL 0.70-1.30 UREA NITROGEN 13.6 [...] 95.88 >60 Aug 14, 2024 05:08 AM [facility] GLUCOSE,BLOOD-poct (STL) Specimen Type: BLOOD Comment: Test Performed by: [id number] Meter #: [id number] Ordering Provider: SILVIA REDDY Report Released Date/Time: Aug 14, 2024 05:52 AM Reporting Lab: [facility]1 [facility] [address] Performing Lab: [facility]1 [facility] [address] GLUCOSE,BLOOD- poct (STL) 135 mg/dL H 72-99 Aug 13, 2024 04:27 PM [facility] GLUCOSE,BLOOD-poct (STL) Specimen Type: BLOOD Comment: Test Performed by: [id number] Meter #: [id number] Ordering Provider: SILVIA REDDY Report Released Date/Time: Aug 13, 2024 04:41 PM Reporting Lab: [facility] #1 [facility] [address] Performing Lab: [facility] [address] GLUCOSE,BLOOD- poct (STL) 181 mg/dL H -Aug 13, 2024 11:33 AM [facility] GLUCOSE,BLOOD-poct (STL) Specimen Type: BLOOD Comment: Test Performed by: [id number] Meter #: [id number] Ordering Provider: SILVIA REDDY Report Released Date/Time: Aug 13, 2024 03:55 PM Reporting Lab: [facility] [address] Performing Lab: [facility] [place] [address] GLUCOSE,BLOOD- poct (STL) 140 mg/dL H Aug 13, 2024 05:54 AM [facility] GLUCOSE,BLOOD-poct (STL) Specimen Type: BLOOD Comment: Test Performed by: [id number] Meter #: [id number] Ordering Provider: SILVIA REDDY Report Released Date/Time: Aug 13, 2024 06:20 AM Reporting Lab: [facility] #1 [facility] [address] Performing Lab: [facility] #1 [facility] [address] GLUCOSE,BLOOD- poct (STL) 112 mg/dL H Aug 12, 2024 04:35 PM [facility] GLUCOSE,BLOOD-poct (STL) Specimen Type: BLOOD Comment: Test Performed by: [id number] Meter #: [id number] Ordering Provider: SILVIA REDDY Report Released Date/Time: Aug 12, 2024 04:47 PM Reporting Lab: [facility]1 [facility] [address] Performing Lab: [facility] #1 [facility] [address] GLUCOSE,BLOOD- poct (STL) 128 mg/dL H 72-99 Aug 12, 2024 11:26 AM [facility] GLUCOSE,BLOOD-poct (STL) Specimen Type: BLOOD Comment: Test Performed by: [id number] Meter #: [id number] Ordering Provider: SILVIA REDDY Report Released Date/Time: Aug 12, 2024 11:45 AM Reporting Lab: [facility] #1 [facility] [address] Performing Lab: [facility] #1 [place] [address] GLUCOSE,BLOOD- poct (STL) 188 mg/dL H -Aug 12, 2024 06:13 AM [facility] GLUCOSE,BLOOD-poct (STL) Specimen Type: BLOOD Comment: Test Performed by: [id number] Meter #: [id number] Ordering Provider: SILVIA REDDY Report Released Date/Time: Aug 12, 2024 06:25 AM Reporting Lab: [facility] #1 [facility] [address] Performing Lab: [facility] #1 [facility] [address] GLUCOSE,BLOOD- poct (STL) 116 mg/dL H 72-99 Aug 11, 2024 04:10 PM [facility] GLUCOSE,BLOOD-poct (STL) Specimen Type: BLOOD Comment: Test Performed by: [id number] Meter #: [id number] Ordering Provider: SILVIA REDDY Report Released Date/Time: Aug 11, 2024 04:27 PM Reporting Lab: [facility] #1 [place] [address] Performing Lab: [facility]1 [facility] [address] GLUCOSE,BLOOD- poct (STL) 184 mg/dL H 72-99 Aug 11, 2024 01:44 PM [facility] MRSA SURVL NARES DNA Specimen [...] Aug 11, 2024 02:03 PM Reporting Lab: [address] [address] Performing Lab: [address] [address] MRSA SURVL NARES DNA Negative Negative Jul 20, 2024 11:18 AM [facility] APTT Specimen Type: PLASMA No comment entered. Ordering Provider: MANUEL BAIRD Report Released Date/Time: Jul 19, 2024 04:00 PM Reporting Lab: [address] [address] Performing Lab: [address] [address] APTT 32.1 s 26.7-39.9 Jul 20, 2024 11:18 AM [facility] PT/INR NEW (L-GA) Specimen Type: PLASMA No comment entered. Ordering Provider: MANUEL BAIRD Report Released Date/Time: Jul 19, 2024 04:00 PM Reporting Lab: [address] [address] Performing Lab: [address] [address] PROTIME 14.4 s H 9.4-12.5 INR VALUE 1.3 {INR} Jul 20, 2024 11:18 AM [facility] CBC Specimen Type: BLOOD No comment entered. Ordering Provider: MANUEL BAIRD Report Released Date/Time: Jul 19, 2024 04:00 PM Reporting Lab: [facility] [address] [facility] [address] Performing Lab: [address] [address] WBC 4.7 10*3/uL 3.6-11.2 RBC 4.86 10*6/uL [...] 1.6 1.0-7.0 Jul 17, 2024 08:02 AM [facility] BASIC METABOLIC PANEL Specimen Type: PLASMA Comment: No hemolysis noted. Ordering Provider: MARY SERNA Report Released Date/Time: Jun 07, 2024 01:43 PM Reporting Lab: [facility] [address] [place] [phone] Performing Lab: [address] [address] CREATININE 0.85 mg/dL 0.7-1.3 UREA NITROGEN 15.2 [...] Aug 12, 2024 10:30 PM 0 [facility] Aug 12, 2024 08:30 PM 98.6 83 129/76 18 92 [facility] Aug 12, 2024 12:41 PM 212.3 31 [facility] Aug 12, 2024 09:59 AM 97.7 68 113/70 18 97 [facility] Aug 12, 2024 06:23 AM 97.5 67 117/67 18 95 [facility] Advance Directives: All historical and [...] 19, 2017 ADVANCE DIRECTIVE DISCUSSION ERICK BARDALES [facility]
--- OUTSIDE RECORDS SUMMARY | 2024-11-17 04:01 | XMS_ITS ---
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 Date/Time Encounter Type Encounter Description Reason Pro vider Source Aug 11, 2024 11:42 PM Inpatient Visit DAILY HOSPITALIZATION DATA [facility] [...] 10:00 AM AMBULATORY - MEDICINE [facility] Aug 24, 2024 10:30 AM AMBULATORY - MEDICINE [facility] Aug 30, 2024 09:30 AM [facility]BULATORY [facility]IC[facility] Aug 31, 2024 01:00 PM AMBULATORY - SURGERY [facility] Sep 21, 2024 01:30 PM AMBULATORY - MEDICINE [facility] Sep 22, 2024 11:00 AM AMBULATORY - MEDICINE [facility] Sep 29, 2024 12:30 PM AMBULATORY - MEDICINE [facility] Oct 02, 2024 09:30 AM AMBULATORY - MEDICINE [facility] Nov 20, 2024 10:30 AM AMBULATORY - SURGERY [facility] Nov 21, 2024 10:00 AM AMBULATORY - NONE [facility] Dec 11, 2024 10:30 AM AMBULATORY - MEDICINE [facility] Active, Pending, and Scheduled Orders This section includes a listing of several types of active, pending, and scheduled orders, including clinic medications orders, diagnostic test orders, procedure orders and consult orders; where the start date of the order is 45 days before the date of the Encounter or 45 days after the date of theEncounter. The data comes from all [facility]. Test Date/Time Test Type Test Details Facility Name Aug 02, 2024 12:00 AM Laboratory - Chemistry Order CBC BLOOD STAT SP [facility] Aug 02, 2024 12:00 AM Laboratory - Chemistry Order COMPREHENSIVE METABOLIC PANEL GREEN LI/HEP BLD/PLAS PLASMA SP [facility] Aug 17, 2024 03:47 PM Consult Order [facility] Cons Bedside [facility] Lab Results: +/- 30 days [...] Range Comment Aug 23, 2024 08:21 AM [facility] MAGNESIUM Specimen Type: PLASMA No comment entered. Ordering Provider: SILVIA REDDY Report Released Date/Time: Aug 22, 2024 11:26 AM Reporting Lab: [facility]1 [facility] [address] Performing Lab: [facility] [address] MAGNESIUM 1.8 mg/dL 1.6-2.6 Aug 23, 2024 08:21 AM [facility] CBC Specimen Type: BLOOD No comment entered. Ordering Provider: SILVIA REDDY Report Released Date/Time: Aug 22, 2024 11:19 AM Reporting Lab: [facility] [address] Performing Lab: [facility]1 [facility] [address] WBC 4.0 10*3/uL 3.6-11.2 RBC 3.65 10*6/uL [...] 10*3/uL 0.00-0.20 Aug 23, 2024 05:12 AM [facility] GLUCOSE,BLOOD-poct (STL) Specimen Type: BLOOD Comment: Test Performed by: [id number] Meter #: [id number] Ordering Provider: SILVIA REDDY Report Released Date/Time: Aug 23, 2024 05:23 AM Reporting Lab: [facility] [address] Performing Lab: [facility] #1 [facility] [address] GLUCOSE,BLOOD- poct (STL) 99 mg/dL 72-99 Aug 23, 2024 02:45 AM [facility] OCCULT BLOOD FIT X1 SCREEN Specimen Type: FECES No comment entered. Ordering Provider: SILVIA REDDY Report Released Date/Time: Aug 22, 2024 11:23 AM Reporting Lab: [address] [address] Performing Lab: [address] [address] OCCULT BLOOD (FIT) #1 OF 1 Negative Negative Aug 22, 2024 07:30 PM [facility] OCCULT BLOOD FIT X1 SCREEN Specimen Type: FECES No comment entered. Ordering Provider: SILVIA REDDY Report Released Date/Time: Aug 22, 2024 11:23 AM Reporting Lab: [address] [address] Performing Lab: [address] [address] OCCULT BLOOD (FIT) #1 OF 1 Negative Negative Aug 22, 2024 06:15 PM [facility] OCCULT BLOOD FIT X1 SCREEN Specimen Type: FECES No comment entered. Ordering Provider: SILVIA REDDY Report Released Date/Time: Aug 22, 2024 11:23 AM Reporting Lab: [address] [address] Performing Lab: [place] [address] [facility] [address] OCCULT BLOOD (FIT) #1 OF 1 Negative Negative Aug 22, 2024 04:24 PM [facility] GLUCOSE,BLOOD-poct (STL) Specimen Type: BLOOD Comment: Test Performed by: [id number] Meter #: [id number] Ordering Provider: SILVIA REDDY Report Released Date/Time: Aug 22, 2024 04:36 PM Reporting Lab: [facility] [address] Performing Lab: [facility] #1 [facility] [address] GLUCOSE,BLOOD- poct (STL) 176 mg/dL H -Aug 22, 2024 04:23 PM [facility] GLUCOSE,BLOOD-poct (STL) Specimen Type: BLOOD Comment: Test Performed by: [id number] Meter #: [id number] Ordering Provider: SILVIA REDDY Report Released Date/Time: Aug 22, 2024 04:36 PM Reporting Lab: [facility] [address] Performing Lab: [facility] #1 [facility] [address] GLUCOSE,BLOOD- poct (STL) 221 mg/dL H 72-Aug 22, 2024 11:15 AM [facility] GLUCOSE,BLOOD-poct (STL) Specimen Type: BLOOD Comment: Test Performed by: [id number] Meter #: [id number] Ordering Provider: SILVIA REDDY Report Released Date/Time: Aug 22, 2024 11:27 AM Reporting Lab: [facility] [address] Performing Lab: [facility] #1 [facility] [address] GLUCOSE,BLOOD- poct (STL) 140 mg/dL H 72-Aug 22, 2024 08:[address] [facility] FERRITIN Specimen Type: SERUM No comment entered. Ordering Provider: JUDIT PERKINS Report Released Date/Time: Aug 18, 2024 11:01 AM Reporting Lab: [facility] [address] [facility] [address] Performing Lab: [facility] [address] [place] [address] FERRITIN 79.50 ng/mL 22-275 Aug 22, 2024 08:03 AM [facility] IRON/TIBC PROFILE Specimen Type: SERUM No comment entered. Ordering Provider: JUDIT PERKINS Report Released Date/Time: Aug 18, 2024 11:01 AM Reporting Lab: [address] [address] Performing Lab: [address] [address] TIBC 283 ug/dL 250-450 TRANSFERRIN 226 mg/dL 163-344 IRON SATURATION 7 L 20-50 IRON 19 ug/dL L 65-175 Aug 22, 2024 08:03 AM [facility] B12 Specimen Type: SERUM No comment entered. Ordering Provider: JUDIT PERKINS Report Released Date/Time: Aug 18, 2024 11:01 AM Reporting Lab: [facility]1 [facility] [address] Performing Lab: [facility] #1 [facility] [address] B12 631 pg/mL 213-816 Aug 22, 2024 08:03 AM [facility] COMPREHENSIVE METABOLIC PANEL Specimen Type: PLASMA Comment: No hemolysis noted. Ordering Provider: SILVIA REDDY Report Released Date/Time: Aug 17, 2024 01:18 PM Reporting Lab: [facility] [address] [facility] [address] Performing Lab: [address] [address] CREATININE 0.80 mg/dL 0.7-1.3 UREA NITROGEN 9.7 [...] 94.0 >60 Aug 22, 2024 08:03 AM [facility] CBC Specimen Type: BLOOD No comment entered. Ordering Provider: SILVIA REDDY Report Released Date/Time: Aug 17, 2024 01:18 PM Reporting Lab: [facility] [address] Performing Lab: [facility]1 [facility] [address] WBC 3.5 10*3/uL L 3.6-11.2 RBC 3.23 [...] NRBC% 0 Aug 22, 2024 05:03 AM [facility] GLUCOSE,BLOOD-poct (STL) Specimen Type: BLOOD Comment: Test Performed by: [id number] Meter #: [id number] Ordering Provider: SILVIA REDDY Report Released Date/Time: Aug 22, 2024 06:17 AM Reporting Lab: [facility] #1 [facility] [address] Performing Lab: [facility] #1 [facility] [address] GLUCOSE,BLOOD- poct (STL) 170 mg/dL H 72-Aug 21, 2024 04:32 PM [facility] GLUCOSE,BLOOD-poct (STL) Specimen Type: BLOOD Comment: Test Performed by: [id number] Meter #: [id number] Ordering Provider: SILVIA REDDY Report Released Date/Time: Aug 21, 2024 04:49 PM Reporting Lab: [facility] [address] Performing Lab: [facility] #1 [facility] [address] GLUCOSE,BLOOD- poct (STL) 169 mg/dL H -Aug 21, 2024 11:53 AM [facility] GLUCOSE,BLOOD-poct (STL) Specimen Type: BLOOD Comment: Test Performed by: [id number] Meter #: [id number] Ordering Provider: SILVIA REDDY Report Released Date/Time: Aug 21, 2024 12:11 PM Reporting Lab: [facility] #1 [facility] [address] Performing Lab: [facility] #1 [facility] [address] GLUCOSE,BLOOD- poct (STL) 149 mg/dL H 72-Aug 21, 2024 05:10 AM [facility] GLUCOSE,BLOOD-poct (STL) Specimen Type: BLOOD Comment: Test Performed by: [id number] Meter #: [id number] Ordering Provider: SILVIA REDDY Report Released Date/Time: Aug 21, 2024 05:27 AM Reporting Lab: [facility] #1 [facility] [address] Performing Lab: [facility] #1 [facility] [address] GLUCOSE,BLOOD- poct (STL) 118 mg/dL H 72-Aug 20, 2024 04:38 PM [facility] GLUCOSE,BLOOD-poct (STL) Specimen Type: BLOOD Comment: Test Performed by: [id number] Meter #: [id number] Ordering Provider: SILVIA REDDY Report Released Date/Time: Aug 21, 2024 01:55 AM Reporting Lab: [facility] #1 [facility] [address] Performing Lab: [facility] #1 [place] [address] GLUCOSE,BLOOD- poct (STL) 169 mg/dL H -Aug 20, 2024 04:36 PM [facility] GLUCOSE,BLOOD-poct (STL) Specimen Type: BLOOD Comment: Test Performed by: [id number] Meter #: [id number] Ordering Provider: SILVIA REDDY Report Released Date/Time: Aug 21, 2024 01:55 AM Reporting Lab: [facility] #1 [facility] [address] Performing Lab: [facility] #1 [facility] [address] GLUCOSE,BLOOD- poct (STL) 395 mg/dL H 72-Aug 20, 2024 11:45 AM [facility] GLUCOSE,BLOOD-poct (STL) Specimen Type: BLOOD Comment: Test Performed by: [id number] Meter #: [id number] Ordering Provider: SILVIA REDDY Report Released Date/Time: Aug 20, 2024 11:56 AM Reporting Lab: [facility] #1 [place] [address] Performing Lab: [facility]1 [facility] [address] GLUCOSE,BLOOD- poct (STL) 169 mg/dL H -Aug 20, 2024 05:06 AM [facility] GLUCOSE,BLOOD-poct (STL) Specimen Type: BLOOD Comment: Test Performed by: [id number] Meter #: [id number] Ordering Provider: SILVIA REDDY Report Released Date/Time: Aug 20, 2024 06:05 AM Reporting Lab: [facility]1 [facility] [address] Performing Lab: [facility] #1 [facility] [address] GLUCOSE,BLOOD- poct (STL) 115 mg/dL H -Aug 19, 2024 04:23 PM [facility] GLUCOSE,BLOOD-poct (STL) Specimen Type: BLOOD Comment: Test Performed by: [id number] Meter #: [id number] Ordering Provider: SILVIA REDDY Report Released Date/Time: Aug 19, 2024 05:54 PM Reporting Lab: [facility]1 [facility] [address] Performing Lab: [facility]1 [facility] [address] GLUCOSE,BLOOD- poct (STL) 137 mg/dL H -Aug 19, 2024 11:28 AM [facility] GLUCOSE,BLOOD-poct (STL) Specimen Type: BLOOD Comment: Test Performed by: [id number] Meter #: [id number] Ordering Provider: SILVIA REDDY Report Released Date/Time: Aug 19, 2024 11:51 AM Reporting Lab: [facility]1 [facility] [address] Performing Lab: [facility]1 [facility] [address] GLUCOSE,BLOOD- poct (STL) 190 mg/dL H Aug 19, 2024 05:21 AM [facility] GLUCOSE,BLOOD-poct (STL) Specimen Type: BLOOD Comment: Test Performed by: [id number] Meter #: [id number] Ordering Provider: SILVIA REDDY Report Released Date/Time: Aug 19, 2024 05:56 AM Reporting Lab: [facility] #1 [facility] [address] Performing Lab: [facility] #1 [facility] [address] GLUCOSE,BLOOD- poct (STL) 130 mg/dL H Aug 18, 2024 04:49 PM [facility] GLUCOSE,BLOOD-poct (STL) Specimen Type: BLOOD Comment: Test Performed by: [id number] Meter #: [id number] Ordering Provider: SILVIA REDDY Report Released Date/Time: Aug 18, 2024 05:01 PM Reporting Lab: [facility]1 [facility] [address] Performing Lab: [facility] #1 [facility] [address] GLUCOSE,BLOOD- poct (STL) 129 mg/dL H Aug 18, 2024 11:23 AM [facility] GLUCOSE,BLOOD-poct (STL) Specimen Type: BLOOD Comment: Test Performed by: [id number] Meter #: [id number] Ordering Provider: SILVIA REDDY Report Released Date/Time: Aug 18, 2024 11:41 AM Reporting Lab: [facility] #1 [facility] [address] Performing Lab: [facility] #1 [facility] [address] GLUCOSE,BLOOD- poct (STL) 180 mg/dL H Aug 18, 2024 05:08 AM [facility] GLUCOSE,BLOOD-poct (STL) Specimen Type: BLOOD Comment: Test Performed by: [id number] Meter #: [id number] Ordering Provider: SILVIA REDDY Report Released Date/Time: Aug 18, 2024 05:31 AM Reporting Lab: [facility]1 [facility] [address] Performing Lab: [facility] #1 [facility] [address] GLUCOSE,BLOOD- poct (STL) 127 mg/dL H -Aug 17, 2024 07:32 PM [facility] GLUCOSE,BLOOD-poct (STL) Specimen Type: BLOOD Comment: Test Performed by: [id number] Meter #: [id number] Ordering Provider: SILVIA REDDY Report Released Date/Time: Aug 17, 2024 07:59 PM Reporting Lab: [facility] #1 [facility] [address] Performing Lab: [facility] #1 [facility] [address] GLUCOSE,BLOOD- poct (STL) 154 mg/dL H -Aug 17, 2024 04:24 PM [facility] GLUCOSE,BLOOD-poct (STL) Specimen Type: BLOOD Comment: Test Performed by: [id number] Meter #: [id number] Ordering Provider: SILVIA REDDY Report Released Date/Time: Aug 17, 2024 04:35 PM Reporting Lab: [facility] #1 [facility] [address] Performing Lab: [facility]1 [facility] [address] GLUCOSE,BLOOD- poct (STL) 178 mg/dL H -Aug 17, 2024 05:09 AM [facility] GLUCOSE,BLOOD-poct (STL) Specimen Type: BLOOD Comment: Test Performed by: [id number] Meter #: [id number] Ordering Provider: SILVIA REDDY Report Released Date/Time: Aug 17, 2024 05:54 AM Reporting Lab: [facility] #1 [place] [address] Performing Lab: [facility]1 [facility] [address] GLUCOSE,BLOOD- poct (STL) 124 mg/dL H -Aug 16, 2024 07:40 PM [facility] GLUCOSE,BLOOD-poct (STL) Specimen Type: BLOOD Comment: Test Performed by: [id number] Meter #: [id number] Ordering Provider: SILVIA REDDY Report Released Date/Time: Aug 16, 2024 08:28 PM Reporting Lab: [facility]1 [facility] [address] Performing Lab: [facility] #1 [facility] [address] GLUCOSE,BLOOD- poct (STL) 144 mg/dL H Aug 16, 2024 04:19 PM [facility] GLUCOSE,BLOOD-poct (STL) Specimen Type: BLOOD Comment: Test Performed by: [id number] Meter #: [id number] Ordering Provider: SILVIA REDDY Report Released Date/Time: Aug 16, 2024 04:45 PM Reporting Lab: [facility]1 [facility] [address] Performing Lab: [facility]1 [facility] [address] GLUCOSE,BLOOD- poct (STL) 138 mg/dL H Aug 16, 2024 11:52 AM [facility] GLUCOSE,BLOOD-poct (STL) Specimen Type: BLOOD Comment: Test Performed by: [id number] Meter #: [id number] Ordering Provider: SILVIA REDDY Report Released Date/Time: Aug 16, 2024 12:04 PM Reporting Lab: [facility] [address] Performing Lab: [facility]1 [facility] [address] GLUCOSE,BLOOD- poct (STL) 135 mg/dL H Aug 16, 2024 05:24 AM [facility] GLUCOSE,BLOOD-poct (STL) Specimen Type: BLOOD Comment: Test Performed by: [id number] Meter #: [id number] Ordering Provider: SILVIA REDDY Report Released Date/Time: Aug 16, 2024 05:38 AM Reporting Lab: [facility]1 [facility] [address] Performing Lab: [facility] [address] GLUCOSE,BLOOD- poct (STL) 151 mg/dL H Aug 15, 2024 07:31 PM [facility] GLUCOSE,BLOOD-poct (STL) Specimen Type: BLOOD Comment: Test Performed by: [id number] Meter #: [id number] Ordering Provider: SILVIA REDDY Report Released Date/Time: Aug 15, 2024 08:07 PM Reporting Lab: [facility]1 [facility] [address] Performing Lab: [facility] #1 [facility] [address] GLUCOSE,BLOOD- poct (STL) 173 mg/dL H Aug 15, 2024 04:18 PM [facility] GLUCOSE,BLOOD-poct (STL) Specimen Type: BLOOD Comment: Test Performed by: [id number] Meter #: [id number] Ordering Provider: SILVIA REDDY Report Released Date/Time: Aug 15, 2024 04:59 PM Reporting Lab: [facility]1 [facility] [address] Performing Lab: [facility] #1 [facility] [address] GLUCOSE,BLOOD- poct (STL) 136 mg/dL H Aug 15, 2024 04:16 PM [facility] GLUCOSE,BLOOD-poct (STL) Specimen Type: BLOOD Comment: Test Performed by: [id number] Meter #: [id number] Ordering Provider: SILVIA REDDY Report Released Date/Time: Aug 15, 2024 04:59 PM Reporting Lab: [facility]1 [facility] [address] Performing Lab: [facility] #1 [facility] [address] GLUCOSE,BLOOD- poct (STL) 194 mg/dL H -Aug 15, 2024 11:39 AM [facility] GLUCOSE,BLOOD-poct (STL) Specimen Type: BLOOD Comment: Test Performed by: [id number] Meter #: [id number] Ordering Provider: SILVIA REDDY Report Released Date/Time: Aug 15, 2024 12:00 PM Reporting Lab: [facility] #1 [facility] [address] Performing Lab: [facility] [address] GLUCOSE,BLOOD- poct (STL) 127 mg/dL H -Aug 15, 2024 05:07 AM [facility] GLUCOSE,BLOOD-poct (STL) Specimen Type: BLOOD Comment: Test Performed by: [id number] Meter #: [id number] Ordering Provider: SILVIA REDDY Report Released Date/Time: Aug 15, 2024 06:14 AM Reporting Lab: [facility]1 [facility] [address] Performing Lab: [facility] #1 [facility] [address] GLUCOSE,BLOOD- poct (STL) 151 mg/dL H -Aug 14, 2024 04:22 PM [facility] GLUCOSE,BLOOD-poct (STL) Specimen Type: BLOOD Comment: Test Performed by: [id number] Meter #: [id number] Ordering Provider: SILVIA REDDY Report Released Date/Time: Aug 14, 2024 04:52 PM Reporting Lab: [facility] [place] [address] Performing Lab: [facility] [address] GLUCOSE,BLOOD- poct (STL) 129 mg/dL H 72-99 Aug 14, 2024 11:21 AM [facility] GLUCOSE,BLOOD-poct (STL) Specimen Type: BLOOD Comment: Test Performed by: [id number] Meter #: [id number] Ordering Provider: SILVIA REDDY Report Released Date/Time: Aug 14, 2024 11:37 AM Reporting Lab: [facility]1 [facility] [address] Performing Lab: [facility]1 [facility] [address] GLUCOSE,BLOOD- poct (STL) 135 mg/dL H 72-99 Aug 14, 2024 06:59 AM [facility] QUANTIFERON-TB,4 TUBE Specimen Type: BLOOD [...] For additional information, please refer to http://education. MoveThatBlock.com/faq/OFY703 (This link is being provided for information/ educational purposes only.) Test Performed by [employer], [facility], [address] [place] [address] Tommie Garcia M.D., Ph.D., Director of Laboratories , [facility] [id number] Ordering Provider: SILVIA REDDY Report Released Date/Time: Aug 11, 2024 03:58 PM Reporting Lab: [facility] [address] [facility] [address] Performing Lab: [facility] [id number] [place] [address] .NIL - QUANTIFERON 0.04 [IU]/mL .MITOGEN-NIL 0.39 [IU]/mL .QUANTIFERON INDETERMINATE NEGATIVE .TB1-NIL <0.00 [IU]/mL .TB2-NIL <0.00 [IU]/mL Aug 14, 2024 06:59 AM [facility] B12 Specimen Type: SERUM No comment entered. Ordering Provider: SILVIA REDDY Report Released Date/Time: Aug 11, 2024 03:58 PM Reporting Lab: [facility] [facility] [address] Performing Lab: [facility]1 [facility] [address] B12 757 pg/mL 213-816 Aug 14, 2024 06:59 AM [facility] MAGNESIUM Specimen Type: PLASMA Comment: No hemolysis noted. Ordering Provider: SILVIA REDDY Report Released Date/Time: Aug 11, 2024 03:58 PM Reporting Lab: [facility]1 [facility] [address] Performing Lab: [facility] [facility] [address] MAGNESIUM 1.9 mg/dL 1.6-2.6 Aug 14, 2024 06:59 AM [facility] FOLATE (STL-MA) Specimen Type: SERUM No comment entered. Ordering Provider: SILVIA REDDY Report Released Date/Time: Aug 11, 2024 03:58 PM Reporting Lab: [facility] [address] Performing Lab: [facility] [address] FOLATE (STL-MA) 6.8 ng/mL L 7-20 Aug 14, 2024 06:59 AM [facility] VITAMIN D, 25-HYDROXY Specimen Type: SERUM No comment entered. Ordering Provider: SILVIA REDDY Report Released Date/Time: Aug 11, 2024 03:58 PM Reporting Lab: [facility]1 [facility] [address] Performing Lab: [facility] #1 [facility] [address] VITAMIN D, 25-HYDROXY 8.9 ng/mL L 30-96 Aug 14, 2024 06:59 AM [facility] CBC Specimen Type: BLOOD No comment entered. Ordering Provider: SILVIA REDDY Report Released Date/Time: Aug 11, 2024 03:58 PM Reporting Lab: [facility]1 [facility] [address] Performing Lab: [facility] #1 [facility] [address] WBC 4.1 10*3/uL 3.6-11.2 RBC 3.20 10*6/uL [...] 10*3/uL 0.00-0.20 Aug 14, 2024 06:59 AM [facility] COMPREHENSIVE METABOLIC PANEL Specimen Type: PLASMA Comment: No hemolysis noted. Ordering Provider: SILVIA REDDY Report Released Date/Time: Aug 11, 2024 03:58 PM Reporting Lab: [facility]1 [place] [phone] Performing Lab: [facility] [address] [place] [phone] CREATININE 0.75 mg/dL 0.70-1.30 UREA NITROGEN 13.6 [...] 95.88 >60 Aug 14, 2024 05:08 AM [facility] GLUCOSE,BLOOD-poct (STL) Specimen Type: BLOOD Comment: Test Performed by: [id number] Meter #: [id number] Ordering Provider: SILVIA REDDY Report Released Date/Time: Aug 14, 2024 05:52 AM Reporting Lab: [facility] [address] Performing Lab: [facility] [address] GLUCOSE,BLOOD- poct (STL) 135 mg/dL H 72-99 Aug 13, 2024 04:27 PM [facility] GLUCOSE,BLOOD-poct (STL) Specimen Type: BLOOD Comment: Test Performed by: [id number] Meter #: [id number] Ordering Provider: SILVIA REDDY Report Released Date/Time: Aug 13, 2024 04:41 PM Reporting Lab: [facility]1 [facility] [address] Performing Lab: [facility] [address] GLUCOSE,BLOOD- poct (STL) 181 mg/dL H -Aug 13, 2024 11:33 AM [facility] GLUCOSE,BLOOD-poct (STL) Specimen Type: BLOOD Comment: Test Performed by: [id number] Meter #: [id number] Ordering Provider: SILVIA REDDY Report Released Date/Time: Aug 13, 2024 03:55 PM Reporting Lab: [facility] [address] Performing Lab: [facility] [place] [address] GLUCOSE,BLOOD- poct (STL) 140 mg/dL H Aug 13, 2024 05:54 AM [facility] GLUCOSE,BLOOD-poct (STL) Specimen Type: BLOOD Comment: Test Performed by: [id number] Meter #: [id number] Ordering Provider: SILVIA REDDY Report Released Date/Time: Aug 13, 2024 06:20 AM Reporting Lab: [facility] [address] Performing Lab: [facility] [address] GLUCOSE,BLOOD- poct (STL) 112 mg/dL H Aug 12, 2024 04:35 PM [facility] GLUCOSE,BLOOD-poct (STL) Specimen Type: BLOOD Comment: Test Performed by: [id number] Meter #: [id number] Ordering Provider: SILVIA REDDY Report Released Date/Time: Aug 12, 2024 04:47 PM Reporting Lab: [facility] [address] Performing Lab: [facility] [address] GLUCOSE,BLOOD- poct (STL) 128 mg/dL H 72-99 Aug 12, 2024 11:26 AM [facility] GLUCOSE,BLOOD-poct (STL) Specimen Type: BLOOD Comment: Test Performed by: [id number] Meter #: [id number] Ordering Provider: SILVIA REDDY Report Released Date/Time: Aug 12, 2024 11:45 AM Reporting Lab: [facility] [address] Performing Lab: [facility] [address] GLUCOSE,BLOOD- poct (STL) 188 mg/dL H 72-Aug 12, 2024 06:13 AM [facility] GLUCOSE,BLOOD-poct (STL) Specimen Type: BLOOD Comment: Test Performed by: [id number] Meter #: [id number] Ordering Provider: SILVIA REDDY Report Released Date/Time: Aug 12, 2024 06:25 AM Reporting Lab: [facility] [address] Performing Lab: [facility] [address] GLUCOSE,BLOOD- poct (STL) 116 mg/dL H 72-99 Aug 11, 2024 04:10 PM [facility] GLUCOSE,BLOOD-poct (STL) Specimen Type: BLOOD Comment: Test Performed by: [id number] Meter #: [id number] Ordering Provider: SILVIA REDDY Report Released Date/Time: Aug 11, 2024 04:27 PM Reporting Lab: [facility]1 [place] [address] Performing Lab: [facility] [address] GLUCOSE,BLOOD- poct (STL) 184 mg/dL H 72-99 Aug 11, 2024 01:44 PM [facility] MRSA SURVL NARES DNA Specimen [...] Aug 11, 2024 02:03 PM Reporting Lab: [address] [address] Performing Lab: [address] [address] MRSA SURVL NARES DNA Negative Negative Jul 20, 2024 11:18 AM [facility] APTT Specimen Type: PLASMA No comment entered. Ordering Provider: MANUEL BAIRD Report Released Date/Time: Jul 19, 2024 04:00 PM Reporting Lab: [address] [address] Performing Lab: [address] [address] APTT 32.1 s 26.7-39.9 Jul 20, 2024 11:18 AM [facility] PT/INR NEW (L-[place]) Specimen Type: PLASMA No comment entered. Ordering Provider: MANUEL BAIRD Report Released Date/Time: Jul 19, 2024 04:00 PM Reporting Lab: [address] [address] Performing Lab: [address] [address] PROTIME 14.4 s H 9.4-12.5 INR VALUE 1.3 {INR} Jul 20, 2024 11:18 AM [facility] CBC Specimen Type: BLOOD No comment entered. Ordering Provider: MANUEL BAIRD Report Released Date/Time: Jul 19, 2024 04:00 PM Reporting Lab: [facility] [address] [facility] [address] Performing Lab: [facility] [address] [place] [address] WBC 4.7 10*3/uL 3.6-11.2 RBC 4.86 10*6/uL [...] 1.0-7.0 Jul 17, 2024 08:02 AM [facility] METABOLIC PANEL Specimen Type: PLASMA Comment: No hemolysis noted. Ordering Provider: MARY SERNA Report Released Date/Time: Jun 07, 2024 01:43 PM Reporting Lab: [facility] [address] [facility] [address] Performing Lab: [address] [address] CREATININE 0.85 mg/dL 0.7-1.3 UREA NITROGEN 15.2 [...] 08:19 PM 98.1 74 139/77 18 96 [facility] Aug 11, 2024 08:15 PM 0 [facility] Aug 11, 2024 02:26 PM 211.1 30 [facility] Aug 11, 2024 02:22 PM 97.6 124/77 18 [facility] Advance Directives: All historical and current Section Date Range: From patient's date of to the date document was created. This section includes ALL of a patient's completed or amended [place] Advance and Rescinded Directives. The entries below indicate that a directive exists for the patient, but an actual copy is not included with this document. The data comes from all [place] facilities. Date Advance Directives Provider Source Jan 19, 2017 ADVANCE DIRECTIVE DISCUSSION ERICK BARDALES [facility]
--- OUTSIDE RECORDS SUMMARY | 2024-11-17 04:01 | XMS_ITS ---
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 Date/Time Encounter Type Encounter Description Reason Pro vider Source Aug 12, 2024 10:26 PM Inpatient Visit DAILY HOSPITALIZATION DATA LEYDI PARKER Encounter Template Text not used by MD [...] 20 appointments. The data comes from all [facility]. Appointment Date/Time Appointment Type Appointme nt Facility Name Aug 24, 2024 10:00 AM AMBULATORY - MEDICINE [facility] Aug 24, 2024 10:30 AM AMBULATORY - MEDICINE [facility] Aug 30, 2024 09:30 AM AMBULATORY MEDICINE [facility] Aug 31, 2024 01:00 PM AMBULATORY - SUR[facility]ERY [facility] Sep 21, 2024 01:30 PM AMBULATORY - MEDICINE [facility] Sep 22, 2024 11:00 AM AMBULATORY - MEDICINE [facility] Sep 29, 2024 12:30 PM AMBULATORY - MEDICINE [facility] Oct 02, 2024 09:30 AM AMBULATORY - MEDICINE [facility] Nov 20, 2024 10:30 AM AMBULATORY - [facility]ERY [facility] Nov 21, 2024 10:00 AM AMBULATORY - NONE [facility] Dec 11, 2024 10:30 AM AMBULATORY - MEDICINE [facility] Active, Pending, and [...] of theEncounter. The data comes from all [facility]. Test Date/Time Test Type Test Details Facility Name Aug 02, 2024 12:00 AM Laboratory - Chemistry Order CBC BLOOD STAT SP [facility] Aug 02, 2024 12:00 AM Laboratory - Chemistry Order COMPREHENSIVE METABOLIC PANEL GREEN LI/HEP BLD/PLAS PLASMA SP [facility] Aug 17, 2024 03:47 PM Consult Order [facility] Cons Bedside [facility] Lab Results: +/- 30 [...] Range Comment Aug 23, 2024 08:21 AM [facility] MAGNESIUM Specimen Type: PLASMA No comment entered. Ordering Provider: SILVIA REDDY Report Released Date/Time: Aug 22, 2024 11:26 AM Reporting Lab: [facility] [address] Performing Lab: [facility] #1 [facility] [address] MAGNESIUM 1.8 mg/dL 1.6-2.6 Aug 23, 2024 08:21 AM [facility] CBC Specimen Type: BLOOD No comment entered. Ordering Provider: SILVIA REDDY Report Released Date/Time: Aug 22, 2024 11:19 AM Reporting Lab: [facility] [address] Performing Lab: [facility] #1 [facility] [address] WBC 4.0 10*3/uL 3.6-11.2 RBC 3.65 10*6/uL [...] 10*3/uL 0.00-0.20 Aug 23, 2024 05:12 AM [facility] GLUCOSE,BLOOD-poct (STL) Specimen Type: BLOOD Comment: Test Performed by: [id number] Meter #: [id number] Ordering Provider: SILVIA REDDY Report Released Date/Time: Aug 23, 2024 05:23 AM Reporting Lab: [facility] [address] Performing Lab: [facility] #1 [facility] [address] GLUCOSE,BLOOD- poct (STL) 99 mg/dL 72-99 Aug 23, 2024 02:45 AM [facility] OCCULT BLOOD FIT X1 SCREEN Specimen Type: FECES No comment entered. Ordering Provider: SILVIA REDDY Report Released Date/Time: Aug 22, 2024 11:23 AM Reporting Lab: [address] [address] Performing Lab: [address] [address] OCCULT BLOOD (FIT) #1 OF 1 Negative Negative Aug 22, 2024 07:30 PM [facility] OCCULT BLOOD FIT X1 SCREEN Specimen Type: FECES No comment entered. Ordering Provider: SILVIA REDDY Report Released Date/Time: Aug 22, 2024 11:23 AM Reporting Lab: [address] [address] Performing Lab: [address] [address] OCCULT BLOOD (FIT) #1 OF 1 Negative Negative Aug 22, 2024 06:15 PM [facility] OCCULT BLOOD FIT X1 SCREEN Specimen Type: FECES No comment entered. Ordering Provider: SILVIA REDDY Report Released Date/Time: Aug 22, 2024 11:23 AM Reporting Lab: [address] [address] Performing Lab: [facility] [address] [facility] [address] OCCULT BLOOD (FIT) #1 OF 1 Negative Negative Aug 22, 2024 04:24 PM [facility] GLUCOSE,BLOOD-poct (STL) Specimen Type: BLOOD Comment: Test Performed by: [id number] Meter #: [id number] Ordering Provider: SILVIA REDDY Report Released Date/Time: Aug 22, 2024 04:36 PM Reporting Lab: [facility] [address] Performing Lab: [facility] #1 [facility] [address] GLUCOSE,BLOOD- poct (STL) 176 mg/dL H -Aug 22, 2024 04:23 PM [facility] GLUCOSE,BLOOD-poct (STL) Specimen Type: BLOOD Comment: Test Performed by: [id number] Meter #: [id number] Ordering Provider: SILVIA REDDY Report Released Date/Time: Aug 22, 2024 04:36 PM Reporting Lab: [facility] [address] Performing Lab: [facility] #1 [facility] [address] GLUCOSE,BLOOD- poct (STL) 221 mg/dL H 72-Aug 22, 2024 11:15 AM [facility] GLUCOSE,BLOOD-poct (STL) Specimen Type: BLOOD Comment: Test Performed by: [id number] Meter #: [id number] Ordering Provider: SILVIA REDDY Report Released Date/Time: Aug 22, 2024 11:27 AM Reporting Lab: [facility] [address] Performing Lab: [facility] #1 [facility] [address] GLUCOSE,BLOOD- poct (STL) 140 mg/dL H 72-Aug 22, 2024 08:03 AM [facility] FERRITIN Specimen Type: SERUM No comment entered. Ordering Provider: JUDIT PERKINS Report Released Date/Time: Aug 18, 2024 11:01 AM Reporting Lab: [facility] [address] [facility] [address] Performing Lab: [facility] [address] [facility] [address] FERRITIN 79.50 ng/mL 22-275 Aug 22, 2024 08:03 AM [facility] B12 Specimen Type: SERUM No comment entered. Ordering Provider: JUDIT PERKINS Report Released Date/Time: Aug 18, 2024 11:01 AM Reporting Lab: [facility] #1 [facility] [address] Performing Lab: [facility] #1 [facility] [address] B12 631 pg/mL 213-816 Aug 22, 2024 08:03 AM [facility] IRON/TIBC PROFILE Specimen Type: SERUM No comment entered. Ordering Provider: JUDIT PERKINS Report Released Date/Time: Aug 18, 2024 11:01 AM Reporting Lab: [place] [address] [facility] [address] Performing Lab: [address] [address] TIBC 283 ug/dL 250-450 TRANSFERRIN 226 mg/dL 163-344 IRON SATURATION 7 L 20-50 IRON 19 ug/dL L 65-175 Aug 22, 2024 08:03 AM [facility] COMPREHENSIVE METABOLIC PANEL Specimen Type: PLASMA Comment: No hemolysis noted. Ordering Provider: SILVIA REDDY Report Released Date/Time: Aug 17, 2024 01:18 PM Reporting Lab: [facility] [address] [facility] [address] Performing Lab: [address] [address] CREATININE 0.80 mg/dL 0.7-1.3 UREA NITROGEN 9.7 [...] >60 Aug 22, 2024 08:03 AM [facility] CBC Specimen Type: BLOOD No comment entered. Ordering Provider: SILVIA REDDY Report Released Date/Time: Aug 17, 2024 01:18 PM Reporting Lab: [facility] [address] Performing Lab: [facility]1 [facility] [address] WBC 3.5 10*3/uL L 3.6-11.2 RBC 3.23 [...] NRBC% 0 Aug 22, 2024 05:03 AM [facility] GLUCOSE,BLOOD-poct (STL) Specimen Type: BLOOD Comment: Test Performed by: [id number] Meter #: [id number] Ordering Provider: SILVIA REDDY Report Released Date/Time: Aug 22, 2024 06:17 AM Reporting Lab: [facility] #1 [facility] [address] Performing Lab: [facility] #1 [facility] [address] GLUCOSE,BLOOD- poct (STL) 170 mg/dL H 72-Aug 21, 2024 04:32 PM [facility] GLUCOSE,BLOOD-poct (STL) Specimen Type: BLOOD Comment: Test Performed by: [id number] Meter #: [id number] Ordering Provider: SILVIA REDDY Report Released Date/Time: Aug 21, 2024 04:49 PM Reporting Lab: [facility]1 [facility] [address] Performing Lab: [facility] #1 [facility] [address] GLUCOSE,BLOOD- poct (STL) 169 mg/dL H -Aug 21, 2024 11:53 AM [facility] GLUCOSE,BLOOD-poct (STL) Specimen Type: BLOOD Comment: Test Performed by: [id number] Meter #: [id number] Ordering Provider: SILVIA REDDY Report Released Date/Time: Aug 21, 2024 12:11 PM Reporting Lab: [facility] #1 [facility] [address] Performing Lab: [facility] #1 [facility] [address] GLUCOSE,BLOOD- poct (STL) 149 mg/dL H 72-Aug 21, 2024 05:10 AM [facility] GLUCOSE,BLOOD-poct (STL) Specimen Type: BLOOD Comment: Test Performed by: [id number] Meter #: [id number] Ordering Provider: SILVIA REDDY Report Released Date/Time: Aug 21, 2024 05:27 AM Reporting Lab: [facility] #[address] [place] [address] Performing Lab: [facility] #[address] [place] [address] GLUCOSE,BLOOD- poct (STL) 118 mg/dL H 72-99 Aug 20, 2024 04:38 PM [facility] GLUCOSE,BLOOD-poct (STL) Specimen Type: BLOOD Comment: Test Performed by: [id number] Meter #: [id number] Ordering Provider: SILVIA REDDY Report Released Date/Time: Aug 21, 2024 01:55 AM Reporting Lab: [facility] #[address] [place] [address] Performing Lab: [facility] #[address] [place] [address] GLUCOSE,BLOOD- poct (STL) 169 mg/dL H 72-Aug 20, 2024 04:36 PM [facility] GLUCOSE,BLOOD-poct (STL) Specimen Type: BLOOD Comment: Test Performed by: [id number] Meter #: [id number] Ordering Provider: SILVIA REDDY Report Released Date/Time: Aug 21, 2024 01:55 AM Reporting Lab: [facility] #[address] [place] [address] Performing Lab: [facility] #[address] [place] [address] GLUCOSE,BLOOD- poct (STL) 395 mg/dL H 72-99 Aug 20, 2024 11:45 AM [facility] GLUCOSE,BLOOD-poct (STL) Specimen Type: BLOOD Comment: Test Performed by: [id number] Meter #: [id number] Ordering Provider: SILVIA REDDY Report Released Date/Time: Aug 20, 2024 11:56 AM Reporting Lab: [facility] #1 [place] [phone] Performing Lab: [facility] #1 [facility] [address] GLUCOSE,BLOOD- poct (STL) 169 mg/dL H 72-Aug 20, 2024 05:06 AM [facility] GLUCOSE,BLOOD-poct (STL) Specimen Type: BLOOD Comment: Test Performed by: [id number] Meter #: [id number] Ordering Provider: SILVIA REDDY Report Released Date/Time: Aug 20, 2024 06:05 AM Reporting Lab: [facility] #1 [facility] [address] Performing Lab: [facility] #1 [facility] [address] GLUCOSE,BLOOD- poct (STL) 115 mg/dL H -Aug 19, 2024 04:23 PM [facility] GLUCOSE,BLOOD-poct (STL) Specimen Type: BLOOD Comment: Test Performed by: [id number] Meter #: [id number] Ordering Provider: SILVIA REDDY Report Released Date/Time: Aug 19, 2024 05:54 PM Reporting Lab: [facility] #1 [facility] [address] Performing Lab: [facility] #1 [facility] [address] GLUCOSE,BLOOD- poct (STL) 137 mg/dL H 72-Aug 19, 2024 11:28 AM [facility] GLUCOSE,BLOOD-poct (STL) Specimen Type: BLOOD Comment: Test Performed by: [id number] Meter #: [id number] Ordering Provider: SILVIA REDDY Report Released Date/Time: Aug 19, 2024 11:51 AM Reporting Lab: [facility] #1 [facility] [address] Performing Lab: [facility] #1 [facility] [address] GLUCOSE,BLOOD- poct (STL) 190 mg/dL H 72-99 Aug 19, 2024 05:21 AM [facility] GLUCOSE,BLOOD-poct (STL) Specimen Type: BLOOD Comment: Test Performed by: [id number] Meter #: [id number] Ordering Provider: SILVIA REDDY Report Released Date/Time: Aug 19, 2024 05:56 AM Reporting Lab: [facility] #1 [facility] [address] Performing Lab: [facility] #1 [facility] [address] GLUCOSE,BLOOD- poct (STL) 130 mg/dL H Aug 18, 2024 04:49 PM [facility] GLUCOSE,BLOOD-poct (STL) Specimen Type: BLOOD Comment: Test Performed by: [id number] Meter #: [id number] Ordering Provider: SILVIA REDDY Report Released Date/Time: Aug 18, 2024 05:01 PM Reporting Lab: [facility]1 [facility] [address] Performing Lab: [facility] #1 [facility] [address] GLUCOSE,BLOOD- poct (STL) 129 mg/dL H Aug 18, 2024 11:23 AM [facility] GLUCOSE,BLOOD-poct (STL) Specimen Type: BLOOD Comment: Test Performed by: [id number] Meter #: [id number] Ordering Provider: SILVIA REDDY Report Released Date/Time: Aug 18, 2024 11:41 AM Reporting Lab: [facility] #1 [facility] [address] Performing Lab: [facility] #1 [facility] [address] GLUCOSE,BLOOD- poct (STL) 180 mg/dL H Aug 18, 2024 05:08 AM [facility] GLUCOSE,BLOOD-poct (STL) Specimen Type: BLOOD Comment: Test Performed by: [id number] Meter #: [id number] Ordering Provider: SILVIA REDDY Report Released Date/Time: Aug 18, 2024 05:31 AM Reporting Lab: [facility] #1 [place] [address] Performing Lab: [facility] #1 [place] [phone] GLUCOSE,BLOOD- poct (STL) 127 mg/dL H -Aug 17, 2024 07:32 PM [facility] GLUCOSE,BLOOD-poct (STL) Specimen Type: BLOOD Comment: Test Performed by: [id number] Meter #: [id number] Ordering Provider: SILVIA REDDY Report Released Date/Time: Aug 17, 2024 07:59 PM Reporting Lab: [facility] #[address] [place] [address] Performing Lab: [facility] #[address] [place] [address] GLUCOSE,BLOOD- poct (STL) 154 mg/dL H -Aug 17, 2024 04:24 PM [facility] GLUCOSE,BLOOD-poct (STL) Specimen Type: BLOOD Comment: Test Performed by: [id number] Meter #: [id number] Ordering Provider: SILVIA REDDY Report Released Date/Time: Aug 17, 2024 04:35 PM Reporting Lab: [facility] #1 [place] [address] Performing Lab: [facility] #1 [place] [address] GLUCOSE,BLOOD- poct (STL) 178 mg/dL H -Aug 17, 2024 05:09 AM [facility] GLUCOSE,BLOOD-poct (STL) Specimen Type: BLOOD Comment: Test Performed by: [id number] Meter #: [id number] Ordering Provider: SILVIA REDDY Report Released Date/Time: Aug 17, 2024 05:54 AM Reporting Lab: [facility] #1 [place] [phone] Performing Lab: [facility] #1 [facility] [address] GLUCOSE,BLOOD- poct (STL) 124 mg/dL H 72-Aug 16, 2024 07:40 PM [facility] GLUCOSE,BLOOD-poct (STL) Specimen Type: BLOOD Comment: Test Performed by: [id number] Meter #: [id number] Ordering Provider: SILVIA REDDY Report Released Date/Time: Aug 16, 2024 08:28 PM Reporting Lab: [facility] #1 [facility] [address] Performing Lab: [facility] #1 [facility] [address] GLUCOSE,BLOOD- poct (STL) 144 mg/dL H -Aug 16, 2024 04:19 PM [facility] GLUCOSE,BLOOD-poct (STL) Specimen Type: BLOOD Comment: Test Performed by: [id number] Meter #: [id number] Ordering Provider: SILVIA REDDY Report Released Date/Time: Aug 16, 2024 04:45 PM Reporting Lab: [facility] #1 [facility] [address] Performing Lab: [facility] #1 [facility] [address] GLUCOSE,BLOOD- poct (STL) 138 mg/dL H -Aug 16, 2024 11:52 AM [facility] GLUCOSE,BLOOD-poct (STL) Specimen Type: BLOOD Comment: Test Performed by: [id number] Meter #: [id number] Ordering Provider: SILVIA REDDY Report Released Date/Time: Aug 16, 2024 12:04 PM Reporting Lab: [facility] #1 [facility] [address] Performing Lab: [facility] #1 [facility] [address] GLUCOSE,BLOOD- poct (STL) 135 mg/dL H 72- Aug 16, 2024 05:24 AM [facility] GLUCOSE,BLOOD-poct (STL) Specimen Type: BLOOD Comment: Test Performed by: [id number] Meter #: [id number] Ordering Provider: SILVIA REDDY Report Released Date/Time: Aug 16, 2024 05:38 AM Reporting Lab: [facility] #1 [facility] [address] Performing Lab: [facility] #1 [facility] [address] GLUCOSE,BLOOD- poct (STL) 151 mg/dL H Aug 15, 2024 07:31 PM [facility] GLUCOSE,BLOOD-poct (STL) Specimen Type: BLOOD Comment: Test Performed by: [id number] Meter #: [id number] Ordering Provider: SILVIA REDDY Report Released Date/Time: Aug 15, 2024 08:07 PM Reporting Lab: [facility] #1 [facility] [address] Performing Lab: [facility] #1 [facility] [address] GLUCOSE,BLOOD- poct (STL) 173 mg/dL H Aug 15, 2024 04:18 PM [facility] GLUCOSE,BLOOD-poct (STL) Specimen Type: BLOOD Comment: Test Performed by: [id number] Meter #: [id number] Ordering Provider: SILVIA REDDY Report Released Date/Time: Aug 15, 2024 04:59 PM Reporting Lab: [facility] #1 [facility] [address] Performing Lab: [facility] #1 [facility] [address] GLUCOSE,BLOOD- poct (STL) 136 mg/dL H Aug 15, 2024 04:16 PM [facility] GLUCOSE,BLOOD-poct (STL) Specimen Type: BLOOD Comment: Test Performed by: [id number] Meter #: [id number] Ordering Provider: SILVIA REDDY Report Released Date/Time: Aug 15, 2024 04:59 PM Reporting Lab: [facility] #[address] [place] [address] Performing Lab: [facility] #1 [facility] [address] GLUCOSE,BLOOD- poct (STL) 194 mg/dL H -Aug 15, 2024 11:39 AM [facility] GLUCOSE,BLOOD-poct (STL) Specimen Type: BLOOD Comment: Test Performed by: [id number] Meter #: [id number] Ordering Provider: SILVIA REDDY Report Released Date/Time: Aug 15, 2024 12:00 PM Reporting Lab: [facility] #1 [place] [address] Performing Lab: [facility] #[address] [place] [address] GLUCOSE,BLOOD- poct (STL) 127 mg/dL H -Aug 15, 2024 05:07 AM [facility] GLUCOSE,BLOOD-poct (STL) Specimen Type: BLOOD Comment: Test Performed by: [id number] Meter #: [id number] Ordering Provider: SILVIA REDDY Report Released Date/Time: Aug 15, 2024 06:14 AM Reporting Lab: [facility] #1 [place] [address] Performing Lab: [facility] #[address] [place] [address] GLUCOSE,BLOOD- poct (STL) 151 mg/dL H -Aug 14, 2024 04:22 PM [facility] GLUCOSE,BLOOD-poct (STL) Specimen Type: BLOOD Comment: Test Performed by: [id number] Meter #: [id number] Ordering Provider: SILVIA REDDY Report Released Date/Time: Aug 14, 2024 04:52 PM Reporting Lab: [facility] #1 [place] [phone] Performing Lab: [facility] #1 [facility] [address] GLUCOSE,BLOOD- poct (STL) 129 mg/dL H 72-99 Aug 14, 2024 11:21 AM [facility] GLUCOSE,BLOOD-poct (STL) Specimen Type: BLOOD Comment: Test Performed by: [id number] Meter #: [id number] Ordering Provider: SILVIA REDDY Report Released Date/Time: Aug 14, 2024 11:37 AM Reporting Lab: [facility] #1 [facility] [address] Performing Lab: [facility] #1 [facility] [address] GLUCOSE,BLOOD- poct (STL) 135 mg/dL H 72-Aug 14, 2024 06:59 AM [facility] QUANTIFERON-TB,4 TUBE Specimen Type: BLOOD Comment: [...] For additional information, please refer to http://education. Kngine/faq/DGY165 (This link is being provided for information/ educational purposes only.) Test Performed by [employer], [employer] [facility], [address] [place] [address] Tommie Garcia M.D., Ph.D., Director of Laboratories , [facility] [id number] Ordering Provider: SILVIA REDDY Report Released Date/Time: Aug 11, 2024 03:58 PM Reporting Lab: [facility] [address] [facility] [address] Performing Lab: [facility] [id number] [place] [address] .NIL - QUANTIFERON 0.04 [IU]/mL .MITOGEN-NIL 0.39 [IU]/mL .QUANTIFERON INDETERMINATE NEGATIVE .TB1-NIL <0.00 [IU]/mL .TB2-NIL <0.00 [IU]/mL Aug 14, 2024 06:59 AM [facility] MAGNESIUM Specimen Type: PLASMA Comment: No hemolysis noted. Ordering Provider: SILVIA REDDY Report Released Date/Time: Aug 11, 2024 03:58 PM Reporting Lab: [facility] #1 [facility] [address] Performing Lab: [facility] #1 [facility] [address] MAGNESIUM 1.9 mg/dL 1.6-2.6 Aug 14, 2024 06:59 AM [facility] B12 Specimen Type: SERUM No comment entered. Ordering Provider: SILVIA REDDY Report Released Date/Time: Aug 11, 2024 03:58 PM Reporting Lab: [facility] [place] [phone] Performing Lab: [facility] [place] [id number] B12 757 pg/mL 213-816 Aug 14, 2024 06:59 AM [facility] FOLATE ([facility]) Specimen Type: SERUM No comment entered. Ordering Provider: SILVIA REDDY Report Released Date/Time: Aug 11, 2024 03:58 PM Reporting Lab: [facility] [place] [id number] Performing Lab: [facility] [place] [id number] FOLATE ([facility]) 6.8 ng/mL L 7-20 Aug 14, 2024 06:59 AM [facility] VITAMIN D, 25-HYDROXY Specimen Type: SERUM No comment entered. Ordering Provider: SILVIA REDDY Report Released Date/Time: Aug 11, 2024 03:58 PM Reporting Lab: [facility] [place] [address] Performing Lab: [facility] #1 [facility] [place] [phone] VITAMIN D, 25-HYDROXY 8.9 ng/mL L 30-96 Aug 14, 2024 06:59 AM [facility] CBC Specimen Type: BLOOD No comment entered. Ordering Provider: SILVIA REDDY Report Released Date/Time: Aug 11, 2024 03:58 PM Reporting Lab: [facility] [place] [id number] Performing Lab: [facility] #1 [facility] [place] [phone] WBC 4.1 10*3/uL 3.6-11.2 RBC 3.20 10*6/uL [...] 10*3/uL 0.00-0.20 Aug 14, 2024 06:59 AM [facility] COMPREHENSIVE METABOLIC PANEL Specimen Type: PLASMA Comment: No hemolysis noted. Ordering Provider: SILVIA REDDY Report Released Date/Time: Aug 11, 2024 03:58 PM Reporting Lab: [facility] [place] [phone] Performing Lab: [facility]1 [place] [phone] CREATININE 0.75 mg/dL 0.70-1.30 UREA NITROGEN 13.6 [...] 95.88 >60 Aug 14, 2024 05:08 AM [facility] HOSPITAL GLUCOSE,BLOOD-poct (STL) Specimen Type: BLOOD Comment: Test Performed by: [id number] Meter #: [id number] Ordering Provider: SILVIA REDDY Report Released Date/Time: Aug 14, 2024 05:52 AM Reporting Lab: [facility]1 [facility] [address] Performing Lab: [facility]1 [facility] [address] GLUCOSE,BLOOD- poct (STL) 135 mg/dL H 72-99 Aug 13, 2024 04:27 PM [facility] GLUCOSE,BLOOD-poct (STL) Specimen Type: BLOOD Comment: Test Performed by: [id number] Meter #: [id number] Ordering Provider: SILVIA REDDY Report Released Date/Time: Aug 13, 2024 04:41 PM Reporting Lab: [facility] #1 [facility] [address] Performing Lab: [facility] [address] GLUCOSE,BLOOD- poct (STL) 181 mg/dL H -Aug 13, 2024 11:33 AM [facility] GLUCOSE,BLOOD-poct (STL) Specimen Type: BLOOD Comment: Test Performed by: [id number] Meter #: [id number] Ordering Provider: SILVIA REDDY Report Released Date/Time: Aug 13, 2024 03:55 PM Reporting Lab: [facility] [address] Performing Lab: [facility] [place] [address] GLUCOSE,BLOOD- poct (STL) 140 mg/dL H Aug 13, 2024 05:54 AM [facility] GLUCOSE,BLOOD-poct (STL) Specimen Type: BLOOD Comment: Test Performed by: [id number] Meter #: [id number] Ordering Provider: SILVIA REDDY Report Released Date/Time: Aug 13, 2024 06:20 AM Reporting Lab: [facility] [address] Performing Lab: [facility]1 [facility] [address] GLUCOSE,BLOOD- poct (STL) 112 mg/dL H Aug 12, 2024 04:35 PM [facility] GLUCOSE,BLOOD-poct (STL) Specimen Type: BLOOD Comment: Test Performed by: [id number] Meter #: [id number] Ordering Provider: SILVIA REDDY Report Released Date/Time: Aug 12, 2024 04:47 PM Reporting Lab: [facility] [address] Performing Lab: [facility] #1 [facility] [address] GLUCOSE,BLOOD- poct (STL) 128 mg/dL H 72-99 Aug 12, 2024 11:26 AM [facility] GLUCOSE,BLOOD-poct (STL) Specimen Type: BLOOD Comment: Test Performed by: [id number] Meter #: [id number] Ordering Provider: SILVIA REDDY Report Released Date/Time: Aug 12, 2024 11:45 AM Reporting Lab: [facility] [phone] Performing Lab: [facility] #1 [facility] [address] GLUCOSE,BLOOD- poct (STL) 188 mg/dL H -Aug 12, 2024 06:13 AM [facility] GLUCOSE,BLOOD-poct (STL) Specimen Type: BLOOD Comment: Test Performed by: [id number] Meter #: [id number] Ordering Provider: SILVIA REDDY Report Released Date/Time: Aug 12, 2024 06:25 AM Reporting Lab: [facility] [address] Performing Lab: [facility] #1 [facility] [address] GLUCOSE,BLOOD- poct (STL) 116 mg/dL H 72-99 Aug 11, 2024 04:10 PM [facility] GLUCOSE,BLOOD-poct (STL) Specimen Type: BLOOD Comment: Test Performed by: [id number] Meter #: [id number] Ordering Provider: SILVIA REDDY Report Released Date/Time: Aug 11, 2024 04:27 PM Reporting Lab: [facility]1 [place] [address] Performing Lab: [facility] [address] GLUCOSE,BLOOD- poct (STL) 184 mg/dL H 72-99 Aug 11, 2024 01:44 PM [facility] MRSA SURVL NARES DNA Specimen Type: [...] Aug 11, 2024 02:03 PM Reporting Lab: [address] [address] Performing Lab: [address] [address] MRSA SURVL NARES DNA Negative Negative Jul 20, 2024 11:18 AM [facility] APTT Specimen Type: PLASMA No comment entered. Ordering Provider: MANUEL BAIRD Report Released Date/Time: Jul 19, 2024 04:00 PM Reporting Lab: [address] [address] Performing Lab: [address] [address] APTT 32.1 s 26.7-39.9 Jul 20, 2024 11:18 AM [facility] PT/INR NEW (L-ND) Specimen Type: PLASMA No comment entered. Ordering Provider: MANUEL BAIRD Report Released Date/Time: Jul 19, 2024 04:00 PM Reporting Lab: [address] [address] Performing Lab: [address] [address] PROTIME 14.4 s H 9.4-12.5 INR VALUE 1.3 {INR} Jul 20, 2024 11:18 AM [facility] CBC Specimen Type: BLOOD No comment entered. Ordering Provider: MANUEL BAIRD Report Released Date/Time: Jul 19, 2024 04:00 PM Reporting Lab: [facility] [address] [facility] [address] Performing Lab: [facility] [address] [place] [phone] WBC 4.7 10*3/uL 3.6-11.2 RBC 4.86 10*6/uL [...] 1.6 1.0-7.0 Jul 17, 2024 08:02 AM [facility] BASIC METABOLIC PANEL Specimen Type: PLASMA Comment: No hemolysis noted. Ordering Provider: MARY SERNA Report Released Date/Time: Jun 07, 2024 01:43 PM Reporting Lab: [facility] [address] [facility] [address] Performing Lab: [address] [address] CREATININE 0.85 mg/dL 0.7-1.3 UREA NITROGEN 15.2 [...] Source Aug 12, 2024 10:30 PM 0 [facility] Aug 12, 2024 08:30 PM 98.6 83 129/76 18 92 [facility] Aug 12, 2024 12:41 PM 212.3 31 [facility] Aug 12, 2024 09:59 AM 97.7 68 113/70 18 97 [facility] Aug 12, 2024 06:23 AM 97.5 67 117/67 18 95 [facility] Advance Directives: All historical and [...] ERICK BARDALES [facility]
--- OUTSIDE RECORDS SUMMARY | 2024-11-17 04:01 | XMS_ITS ---
[place] DAILY HOSPITALIZATION DATA [facility]ESS [facility] Encounter Summary Created on: November 16, 2024 CHET WALKER : 1950 Sex: Male Author Name [facility] [place] [facility] [place] Address [address] [place] [address] Care Team Providers Care Show Host Or Hostess Name Role Phone MANUEL BAIRD Primary Care [...] PART A Apr 08, 2017 PART A [id number] ASHLEY WALKER PATIENT Selected Encounter This section includes the information on record at [place] for the Encounter. Date/Time Encounter Type Encounter Description Reason Pro vider Source Aug 12, 2024 02:20 PM Inpatient Visit DAILY HOSPITALIZATION DATA [place] Encounter Template Text not used by [place] Plan of Treatment: Future Appointments (+ 6 [...] 20 appointments. The data comes from all [facility]. Appointment Date/Time Appointment Type Appointme nt Facility Name Aug 24, 2024 10:00 AM AMBULATORY - MEDICINE [facility] Aug 24, 2024 10:30 AM AMBULATORY - MEDICINE [facility] Aug 30, 2024 09:30 AM AMBULATORY MEDICINE [facility] Aug 31, 2024 01:00 PM AMBULATORY - SURGERY [facility] Sep 21, 2024 01:30 PM AMBULATORY - MEDICINE [facility] Sep 22, 2024 11:00 AM AMBULATORY - MEDICINE [facility] Sep 29, 2024 12:30 PM AMBULATORY - MEDICINE [facility] Oct 02, 2024 09:30 AM AMBULATORY - MEDICINE [facility] Nov 20, 2024 10:30 AM AMBULATORY - SURGERY [facility] Nov 21, 2024 10:00 AM AMBULATORY - NONE [facility] Dec 11, 2024 10:30 AM AMBULATORY - MEDICINE [facility] Active, Pending, and [...] of theEncounter. The data comes from all [facility]. Test Date/Time Test Type Test Details Facility Name Aug 02, 2024 12:00 AM Laboratory - Chemistry Order CBC BLOOD STAT SP [facility] Aug 02, 2024 12:00 AM Laboratory - Chemistry Order COMPREHENSIVE METABOLIC PANEL GREEN LI/HEP BLD/PLAS PLASMA SP [facility] Aug 17, 2024 03:47 PM Consult Order [facility] Cons Bedside [facility] Lab Results: +/- 30 days [...] 2024 11:26 AM Reporting Lab: [facility] [address] Performing Lab: [facility] [address] MAGNESIUM 1.8 mg/dL 1.6-2.6 Aug 23, 2024 08:21 AM [facility] CBC Specimen Type: BLOOD No comment entered. Ordering Provider: SILVIA REDDY Report Released Date/Time: Aug 22, 2024 11:19 AM Reporting Lab: [facility] [address] Performing Lab: [facility] [address] WBC 4.0 10*3/uL 3.6-11.2 RBC 3.65 10*6/uL [...] Specimen Type: BLOOD Comment: Test Performed by: [id number] Meter #: [id number] Ordering Provider: SILVIA REDDY Report Released Date/Time: Aug 23, 2024 05:23 AM Reporting Lab: [facility] [address] Performing Lab: [facility] [facility] [address] GLUCOSE,BLOOD- poct (STL) 99 mg/dL 72-99 Aug 23, 2024 02:45 AM [facility] OCCULT BLOOD FIT X1 SCREEN Specimen Type: FECES No comment entered. Ordering Provider: SILVIA REDDY Report Released Date/Time: Aug 22, 2024 11:23 AM Reporting Lab: [address] [address] Performing Lab: [address] [address] OCCULT BLOOD (FIT) #1 OF 1 Negative Negative Aug 22, 2024 07:30 PM [facility] OCCULT BLOOD FIT X1 SCREEN Specimen Type: FECES No comment entered. Ordering Provider: SILVIA REDDY Report Released Date/Time: Aug 22, 2024 11:23 AM Reporting Lab: [address] [address] Performing Lab: [address] [address] OCCULT BLOOD (FIT) #1 OF 1 Negative Negative Aug 22, 2024 06:15 PM [facility] OCCULT BLOOD FIT X1 SCREEN Specimen Type: FECES No comment entered. Ordering Provider: SILVIA REDDY Report Released Date/Time: Aug 22, 2024 11:23 AM Reporting Lab: [address] [address] Performing Lab: [facility] [address] [facility] [address] OCCULT BLOOD (FIT) #1 OF 1 Negative Negative Aug 22, 2024 04:24 PM [facility] GLUCOSE,BLOOD-poct (STL) Specimen Type: BLOOD Comment: Test Performed by: [id number] Meter #: [id number] Ordering Provider: SILVIA REDDY Report Released Date/Time: Aug 22, 2024 04:36 PM Reporting Lab: [facility] [address] Performing Lab: [facility] [facility] [address] GLUCOSE,BLOOD- poct (STL) 176 mg/dL H -Aug 22, 2024 04:23 PM [facility] GLUCOSE,BLOOD-poct (STL) Specimen Type: BLOOD Comment: Test Performed by: [id number] Meter #: [id number] Ordering Provider: SILVIA REDDY Report Released Date/Time: Aug 22, 2024 04:36 PM Reporting Lab: [facility] [address] Performing Lab: [facility] [address] GLUCOSE,BLOOD- poct (STL) 221 mg/dL H 72-Aug 22, 2024 11:15 AM [facility] GLUCOSE,BLOOD-poct (STL) Specimen Type: BLOOD Comment: Test Performed by: [id number] Meter #: [id number] Ordering Provider: SILVIA REDDY Report Released Date/Time: Aug 22, 2024 11:27 AM Reporting Lab: [facility] [address] Performing Lab: [facility] [facility] [address] GLUCOSE,BLOOD- poct (STL) 140 mg/dL H 72-Aug 22, 2024 08:03 AM [facility] FERRITIN Specimen Type: SERUM No comment entered. Ordering Provider: JUDIT PERKINS Report Released Date/Time: Aug 18, 2024 11:01 AM Reporting Lab: [facility] [address] [facility] [address] Performing Lab: [facility] [address] [facility] [address] FERRITIN 79.50 ng/mL 22-275 Aug 22, 2024 08:03 AM [facility] IRON/TIBC PROFILE Specimen Type: SERUM No comment entered. Ordering Provider: JUDIT PERKINS Report Released Date/Time: Aug 18, 2024 11:01 AM Reporting Lab: [address] [address] Performing Lab: [address] [address] TIBC 283 ug/dL 250-450 TRANSFERRIN 226 mg/dL 163-344 IRON SATURATION 7 L 20-50 IRON 19 ug/dL L 65-175 Aug 22, 2024 08:03 AM [facility] B12 Specimen Type: SERUM No comment entered. Ordering Provider: JUDIT PERKINS Report Released Date/Time: Aug 18, 2024 11:01 AM Reporting Lab: [facility] [facility] [address] Performing Lab: [facility] [facility] [address] B12 631 pg/mL 213-816 Aug 22, 2024 08:03 AM [facility] COMPREHENSIVE METABOLIC PANEL Specimen Type: PLASMA Comment: No hemolysis noted. Ordering Provider: SILVIA REDDY Report Released Date/Time: Aug 17, 2024 01:18 PM Reporting Lab: [facility] [address] [facility] [address] Performing Lab: [address] [address] CREATININE 0.80 mg/dL 0.7-1.3 UREA NITROGEN 9.7 [...] >60 Aug 22, 2024 08:03 AM [facility] CBC Specimen Type: BLOOD No comment entered. Ordering Provider: SILVIA REDDY Report Released Date/Time: Aug 17, 2024 01:18 PM Reporting Lab: [facility] [address] Performing Lab: [facility] [facility] [address] WBC 3.5 10*3/uL L 3.6-11.2 RBC 3.23 [...] Specimen Type: BLOOD Comment: Test Performed by: [id number] Meter #: [id number] Ordering Provider: SILVIA REDDY Report Released Date/Time: Aug 22, 2024 06:17 AM Reporting Lab: [facility] [facility] [address] Performing Lab: [facility] [address] [facility] [address] GLUCOSE,BLOOD- poct (STL) 170 mg/dL H 72-Aug 21, 2024 04:32 PM [facility] GLUCOSE,BLOOD-poct (STL) Specimen Type: BLOOD Comment: Test Performed by: [id number] Meter #: [id number] Ordering Provider: SILVIA REDDY Report Released Date/Time: Aug 21, 2024 04:49 PM Reporting Lab: [facility] [facility] [address] Performing Lab: [facility] [address] [facility] [address] GLUCOSE,BLOOD- poct (STL) 169 mg/dL H -99 Aug 21, 2024 11:53 AM [facility] GLUCOSE,BLOOD-poct (STL) Specimen Type: BLOOD Comment: Test Performed by: [id number] Meter #: [id number] Ordering Provider: SILVIA REDDY Report Released Date/Time: Aug 21, 2024 12:11 PM Reporting Lab: [facility] [facility] [address] Performing Lab: [facility] [address] GLUCOSE,BLOOD- poct (STL) 149 mg/dL H 72-99 Aug 21, 2024 05:10 AM [facility] GLUCOSE,BLOOD-poct (STL) Specimen Type: BLOOD Comment: Test Performed by: [id number] Meter #: [id number] Ordering Provider: SILVIA REDDY Report Released Date/Time: Aug 21, 2024 05:27 AM Reporting Lab: [facility] [address] [place] [address] Performing Lab: [facility] [address] [place] [id number] GLUCOSE,BLOOD- poct (STL) 118 mg/dL H 72-99 Aug 20, 2024 04:38 PM [facility] GLUCOSE,BLOOD-poct (STL) Specimen Type: BLOOD Comment: Test Performed by: [id number] Meter #: [id number] Ordering Provider: SILVIA REDDY Report Released Date/Time: Aug 21, 2024 01:55 AM Reporting Lab: [facility] [address] [place] [address] Performing Lab: [facility] [address] [place] [address] GLUCOSE,BLOOD- poct (STL) 169 mg/dL H 72-Aug 20, 2024 04:36 PM [facility] GLUCOSE,BLOOD-poct (STL) Specimen Type: BLOOD Comment: Test Performed by: [id number] Meter #: [id number] Ordering Provider: SILVIA REDDY Report Released Date/Time: Aug 21, 2024 01:55 AM Reporting Lab: [facility] [place] [address] Performing Lab: [facility] [place] [address] GLUCOSE,BLOOD- poct (STL) 395 mg/dL H 72-99 Aug 20, 2024 11:45 AM [facility] GLUCOSE,BLOOD-poct (STL) Specimen Type: BLOOD Comment: Test Performed by: [id number] Meter #: [id number] Ordering Provider: SILVIA REDDY Report Released Date/Time: Aug 20, 2024 11:56 AM Reporting Lab: [facility] [facility] [address] Performing Lab: [facility] [facility] [address] GLUCOSE,BLOOD- poct (STL) 169 mg/dL H 72-Aug 20, 2024 05:06 AM [facility] GLUCOSE,BLOOD-poct (STL) Specimen Type: BLOOD Comment: Test Performed by: [id number] Meter #: [id number] Ordering Provider: SILVIA REDDY Report Released Date/Time: Aug 20, 2024 06:05 AM Reporting Lab: [facility] [facility] [address] Performing Lab: [facility] [address] [facility] [address] GLUCOSE,BLOOD- poct (STL) 115 mg/dL H 72-Aug 19, 2024 04:23 PM [facility] GLUCOSE,BLOOD-poct (STL) Specimen Type: BLOOD Comment: Test Performed by: [id number] Meter #: [id number] Ordering Provider: SILVIA REDDY Report Released Date/Time: Aug 19, 2024 05:54 PM Reporting Lab: [facility] [facility] [address] Performing Lab: [facility] [facility] [address] GLUCOSE,BLOOD- poct (STL) 137 mg/dL H 72-99 Aug 19, 2024 11:28 AM [facility] GLUCOSE,BLOOD-poct (STL) Specimen Type: BLOOD Comment: Test Performed by: [id number] Meter #: [id number] Ordering Provider: SILVIA REDDY Report Released Date/Time: Aug 19, 2024 11:51 AM Reporting Lab: [facility] [facility] [address] Performing Lab: [facility] [facility] [address] GLUCOSE,BLOOD- poct (STL) 190 mg/dL H 72-99 Aug 19, 2024 05:21 AM [facility] GLUCOSE,BLOOD-poct (STL) Specimen Type: BLOOD Comment: Test Performed by: [id number] Meter #: [id number] Ordering Provider: SILVIA REDDY Report Released Date/Time: Aug 19, 2024 05:56 AM Reporting Lab: [facility] [facility] [address] Performing Lab: [facility] [facility] [address] GLUCOSE,BLOOD- poct (STL) 130 mg/dL H Aug 18, 2024 04:49 PM [facility] GLUCOSE,BLOOD-poct (STL) Specimen Type: BLOOD Comment: Test Performed by: [id number] Meter #: [id number] Ordering Provider: SILVIA REDDY Report Released Date/Time: Aug 18, 2024 05:01 PM Reporting Lab: [facility] [facility] [address] Performing Lab: [facility] [facility] [address] GLUCOSE,BLOOD- poct (STL) 129 mg/dL H Aug 18, 2024 11:23 AM [facility] GLUCOSE,BLOOD-poct (STL) Specimen Type: BLOOD Comment: Test Performed by: [id number] Meter #: [id number] Ordering Provider: SILVIA REDDY Report Released Date/Time: Aug 18, 2024 11:41 AM Reporting Lab: [facility] [facility] [address] Performing Lab: [facility] [facility] [address] GLUCOSE,BLOOD- poct (STL) 180 mg/dL H Aug 18, 2024 05:08 AM [facility] GLUCOSE,BLOOD-poct (STL) Specimen Type: BLOOD Comment: Test Performed by: [id number] Meter #: [id number] Ordering Provider: SILVIA REDDY Report Released Date/Time: Aug 18, 2024 05:31 AM Reporting Lab: [facility] [place] [address] Performing Lab: [facility] [facility] [address] GLUCOSE,BLOOD- poct (STL) 127 mg/dL H -Aug 17, 2024 07:32 PM [facility] GLUCOSE,BLOOD-poct (STL) Specimen Type: BLOOD Comment: Test Performed by: [id number] Meter #: [id number] Ordering Provider: SILVIA REDDY Report Released Date/Time: Aug 17, 2024 07:59 PM Reporting Lab: [facility] [place] [address] Performing Lab: [facility] [place] [address] GLUCOSE,BLOOD- poct (STL) 154 mg/dL H -Aug 17, 2024 04:24 PM [facility] GLUCOSE,BLOOD-poct (STL) Specimen Type: BLOOD Comment: Test Performed by: [id number] Meter #: [id number] Ordering Provider: SILVIA REDDY Report Released Date/Time: Aug 17, 2024 04:35 PM Reporting Lab: [facility] [place] [address] Performing Lab: [facility] [place] [address] GLUCOSE,BLOOD- poct (STL) 178 mg/dL H -Aug 17, 2024 05:09 AM [facility] GLUCOSE,BLOOD-poct (STL) Specimen Type: BLOOD Comment: Test Performed by: [id number] Meter #: [id number] Ordering Provider: SILVIA REDDY Report Released Date/Time: Aug 17, 2024 05:54 AM Reporting Lab: [facility] [address] Performing Lab: [facility] [address] GLUCOSE,BLOOD- poct (STL) 124 mg/dL H 72-Aug 16, 2024 07:40 PM [facility] GLUCOSE,BLOOD-poct (STL) Specimen Type: BLOOD Comment: Test Performed by: [id number] Meter #: [id number] Ordering Provider: SILVIA REDDY Report Released Date/Time: Aug 16, 2024 08:28 PM Reporting Lab: [facility] [facility] [address] Performing Lab: [facility] [address] GLUCOSE,BLOOD- poct (STL) 144 mg/dL H -Aug 16, 2024 04:19 PM [facility] GLUCOSE,BLOOD-poct (STL) Specimen Type: BLOOD Comment: Test Performed by: [id number] Meter #: [id number] Ordering Provider: SILVIA REDDY Report Released Date/Time: Aug 16, 2024 04:45 PM Reporting Lab: [facility] [address] Performing Lab: [facility] [address] GLUCOSE,BLOOD- poct (STL) 138 mg/dL H 72-Aug 16, 2024 11:52 AM [facility] GLUCOSE,BLOOD-poct (STL) Specimen Type: BLOOD Comment: Test Performed by: [id number] Meter #: [id number] Ordering Provider: SILVIA REDDY Report Released Date/Time: Aug 16, 2024 12:04 PM Reporting Lab: [facility] [address] Performing Lab: [facility] [address] GLUCOSE,BLOOD- poct (STL) 135 mg/dL H 72-99 Aug 16, 2024 05:24 AM [facility] GLUCOSE,BLOOD-poct (STL) Specimen Type: BLOOD Comment: Test Performed by: [id number] Meter #: [id number] Ordering Provider: SILVIA REDDY Report Released Date/Time: Aug 16, 2024 05:38 AM Reporting Lab: [facility] [address] Performing Lab: [facility] [address] GLUCOSE,BLOOD- poct (STL) 151 mg/dL H Aug 15, 2024 07:31 PM [facility] GLUCOSE,BLOOD-poct (STL) Specimen Type: BLOOD Comment: Test Performed by: [id number] Meter #: [id number] Ordering Provider: SILVIA REDDY Report Released Date/Time: Aug 15, 2024 08:07 PM Reporting Lab: [facility] [address] Performing Lab: [facility] [address] GLUCOSE,BLOOD- poct (STL) 173 mg/dL H Aug 15, 2024 04:18 PM [facility] GLUCOSE,BLOOD-poct (STL) Specimen Type: BLOOD Comment: Test Performed by: [id number] Meter #: [id number] Ordering Provider: SILVIA REDDY Report Released Date/Time: Aug 15, 2024 04:59 PM Reporting Lab: [facility] [address] Performing Lab: [facility] [address] GLUCOSE,BLOOD- poct (STL) 136 mg/dL H Aug 15, 2024 04:16 PM [facility] GLUCOSE,BLOOD-poct (STL) Specimen Type: BLOOD Comment: Test Performed by: [id number] Meter #: [id number] Ordering Provider: SILVIA REDDY Report Released Date/Time: Aug 15, 2024 04:59 PM Reporting Lab: [facility] [place] [address] Performing Lab: [facility] [address] GLUCOSE,BLOOD- poct (STL) 194 mg/dL H 72-Aug 15, 2024 11:39 AM [facility] GLUCOSE,BLOOD-poct (STL) Specimen Type: BLOOD Comment: Test Performed by: [id number] Meter #: [id number] Ordering Provider: SILVIA REDDY Report Released Date/Time: Aug 15, 2024 12:00 PM Reporting Lab: [facility] [place] [address] Performing Lab: [facility] [place] [address] GLUCOSE,BLOOD- poct (STL) 127 mg/dL H -Aug 15, 2024 05:07 AM [facility] GLUCOSE,BLOOD-poct (STL) Specimen Type: BLOOD Comment: Test Performed by: [id number] Meter #: [id number] Ordering Provider: SILVIA REDDY Report Released Date/Time: Aug 15, 2024 06:14 AM Reporting Lab: [facility] [place] [address] Performing Lab: [facility] [place] [address] GLUCOSE,BLOOD- poct (STL) 151 mg/dL H -Aug 14, 2024 04:22 PM [facility] GLUCOSE,BLOOD-poct (STL) Specimen Type: BLOOD Comment: Test Performed by: [id number] Meter #: [id number] Ordering Provider: SILVIA REDDY Report Released Date/Time: Aug 14, 2024 04:52 PM Reporting Lab: [facility] [address] Performing Lab: [facility] [address] GLUCOSE,BLOOD- poct (STL) 129 mg/dL H 72-99 Aug 14, 2024 11:21 AM [facility] GLUCOSE,BLOOD-poct (STL) Specimen Type: BLOOD Comment: Test Performed by: [id number] Meter #: [id number] Ordering Provider: SILVIA REDDY Report Released Date/Time: Aug 14, 2024 11:37 AM Reporting Lab: [facility] [address] Performing Lab: [facility] [address] GLUCOSE,BLOOD- poct (STL) 135 mg/dL H 72-Aug [...] For additional information, please refer to http://education. [employer]/faq/RSS870 (This link is being provided for information/ educational purposes only.) Test Performed by [email or web address], [employer] [facility], [address] [place] [address] Tommie Garcia M.D., Ph.D., Director of Laboratories , [facility] [id number] Ordering Provider: SILVIA REDDY Report Released Date/Time: Aug 11, 2024 03:58 PM Reporting Lab: [facility] [address] [facility] [address] Performing Lab: [facility] [id number] [place] [address] .NIL - QUANTIFERON 0.04 [IU]/mL .MITOGEN-NIL 0.39 [IU]/mL .QUANTIFERON INDETERMINATE NEGATIVE .TB1-NIL <0.00 [IU]/mL .TB2-NIL <0.00 [IU]/mL Aug 14, 2024 06:59 AM [facility] MAGNESIUM Specimen Type: PLASMA Comment: No hemolysis noted. Ordering Provider: SILVIA REDDY Report Released Date/Time: Aug 11, 2024 03:58 PM Reporting Lab: [facility] [place] [id number] Performing Lab: [facility] [address] MAGNESIUM 1.9 mg/dL 1.6-2.6 Aug 14, 2024 06:59 AM [facility] B12 Specimen Type: SERUM No comment entered. Ordering Provider: SILVIA REDDY Report Released Date/Time: Aug 11, 2024 03:58 PM Reporting Lab: [facility] [facility] [address] Performing Lab: [facility] [address] B12 757 pg/mL 213-816 Aug 14, 2024 06:59 AM [facility] FOLATE (STL-MA) Specimen Type: SERUM No comment entered. Ordering Provider: SILVIA REDDY Report Released Date/Time: Aug 11, 2024 03:58 PM Reporting Lab: [facility] [address] Performing Lab: [facility] [address] FOLATE (STL-MA) 6.8 ng/mL L 7-20 Aug 14, 2024 06:59 AM [facility] VITAMIN D, 25-HYDROXY Specimen Type: SERUM No comment entered. Ordering Provider: SILVIA REDDY Report Released Date/Time: Aug 11, 2024 03:58 PM Reporting Lab: [facility] [phone] Performing Lab: [facility] [address] VITAMIN D, 25-HYDROXY 8.9 ng/mL L 30-96 Aug 14, 2024 06:59 AM [facility] CBC Specimen Type: BLOOD No comment entered. Ordering Provider: SILVIA REDDY Report Released Date/Time: Aug 11, 2024 03:58 PM Reporting Lab: [facility] [phone] Performing Lab: [facility] [address] WBC 4.1 10*3/uL 3.6-11.2 RBC 3.20 10*6/uL [...] 10*3/uL 0.00-0.20 Aug 14, 2024 06:59 AM [facility] COMPREHENSIVE METABOLIC PANEL Specimen Type: PLASMA Comment: No hemolysis noted. Ordering Provider: SILVIA REDDY Report Released Date/Time: Aug 11, 2024 03:58 PM Reporting Lab: [facility] [address] Performing Lab: [facility] [place] [phone] CREATININE 0.75 mg/dL 0.70-1.30 UREA NITROGEN 13.6 [...] 95.88 >60 Aug 14, 2024 05:08 AM [facility] GLUCOSE,BLOOD-poct (STL) Specimen Type: BLOOD Comment: Test Performed by: [id number] Meter #: [id number] Ordering Provider: SILVIA REDDY Report Released Date/Time: Aug 14, 2024 05:52 AM Reporting Lab: [facility] [address] Performing Lab: [facility] [facility] [address] GLUCOSE,BLOOD- poct (STL) 135 mg/dL H 72-99 Aug 13, 2024 04:27 PM [facility] HOSPITAL GLUCOSE,BLOOD-poct (STL) Specimen Type: BLOOD Comment: Test Performed by: [id number] Meter #: [id number] Ordering Provider: SILVIA REDDY Report Released Date/Time: Aug 13, 2024 04:41 PM Reporting Lab: [facility] [address] Performing Lab: [facility] [address] GLUCOSE,BLOOD- poct (STL) 181 mg/dL H -Aug 13, 2024 11:33 AM [facility] GLUCOSE,BLOOD-poct (STL) Specimen Type: BLOOD Comment: Test Performed by: [id number] Meter #: [id number] Ordering Provider: SILVIA REDDY Report Released Date/Time: Aug 13, 2024 03:55 PM Reporting Lab: [facility] [address] Performing Lab: [facility] [place] [address] GLUCOSE,BLOOD- poct (STL) 140 mg/dL H Aug 13, 2024 05:54 AM [facility] GLUCOSE,BLOOD-poct (STL) Specimen Type: BLOOD Comment: Test Performed by: [id number] Meter #: [id number] Ordering Provider: SILVIA REDDY Report Released Date/Time: Aug 13, 2024 06:20 AM Reporting Lab: [facility] [address] Performing Lab: [facility] [address] GLUCOSE,BLOOD- poct (STL) 112 mg/dL H Aug 12, 2024 04:35 PM [facility] GLUCOSE,BLOOD-poct (STL) Specimen Type: BLOOD Comment: Test Performed by: [id number] Meter #: [id number] Ordering Provider: SILVIA REDDY Report Released Date/Time: Aug 12, 2024 04:47 PM Reporting Lab: [facility] [address] Performing Lab: [facility] [address] GLUCOSE,BLOOD- poct (STL) 128 mg/dL H 72-99 Aug 12, 2024 11:26 AM [facility] GLUCOSE,BLOOD-poct (STL) Specimen Type: BLOOD Comment: Test Performed by: [id number] Meter #: [id number] Ordering Provider: SILVIA REDDY Report Released Date/Time: Aug 12, 2024 11:45 AM Reporting Lab: [facility] [address] Performing Lab: [facility] [place] [address] GLUCOSE,BLOOD- poct (STL) 188 mg/dL H -Aug 12, 2024 06:13 AM [facility] GLUCOSE,BLOOD-poct (STL) Specimen Type: BLOOD Comment: Test Performed by: [id number] Meter #: [id number] Ordering Provider: SILVIA REDDY Report Released Date/Time: Aug 12, 2024 06:25 AM Reporting Lab: [facility] [address] Performing Lab: [facility] [address] GLUCOSE,BLOOD- poct (STL) 116 mg/dL H 72-99 Aug 11, 2024 04:10 PM [facility] GLUCOSE,BLOOD-poct (STL) Specimen Type: BLOOD Comment: Test Performed by: [id number] Meter #: [id number] Ordering Provider: SILVIA REDDY Report Released Date/Time: Aug 11, 2024 04:27 PM Reporting Lab: [facility] [place] [address] Performing Lab: [facility] [address] GLUCOSE,BLOOD- poct (STL) 184 mg/dL H 72-99 Aug 11, 2024 01:44 PM [facility] MRSA SURVL NARES DNA Specimen Type: [...] Aug 11, 2024 02:03 PM Reporting Lab: [address] [address] Performing Lab: [address] [address] MRSA SURVL NARES DNA Negative Negative Jul 20, 2024 11:18 AM [facility] APTT Specimen Type: PLASMA No comment entered. Ordering Provider: MANUEL BAIRD Report Released Date/Time: Jul 19, 2024 04:00 PM Reporting Lab: [address] [address] Performing Lab: [address] [address] APTT 32.1 s 26.7-39.9 Jul 20, 2024 11:18 AM [facility] PT/INR NEW (L-ID) Specimen Type: PLASMA No comment entered. Ordering Provider: MANUEL BAIRD Report Released Date/Time: Jul 19, 2024 04:00 PM Reporting Lab: [address] [address] Performing Lab: [address] [address] PROTIME 14.4 s H 9.4-12.5 INR VALUE 1.3 {INR} Jul 20, 2024 11:18 AM [facility] CBC Specimen Type: BLOOD No comment entered. Ordering Provider: MANUEL BAIRD Report Released Date/Time: Jul 19, 2024 04:00 PM Reporting Lab: [facility] [address] [facility] [address] Performing Lab: [address] [address] WBC 4.7 10*3/uL 3.6-11.2 RBC 4.86 10*6/uL [...] 1.6 1.0-7.0 Jul 17, 2024 08:02 AM [facility] BASIC METABOLIC PANEL Specimen Type: PLASMA Comment: No hemolysis noted. Ordering Provider: MARY SERNA Report Released Date/Time: Jun 07, 2024 01:43 PM Reporting Lab: [facility] [address] [place] [address] Performing Lab: [address] [address] CREATININE 0.85 mg/dL 0.7-1.3 UREA NITROGEN 15.2 [...] Aug 12, 2024 10:30 PM 0 [facility] Aug 12, 2024 08:30 PM 98.6 83 129/76 18 92 [facility] Aug 12, 2024 12:41 PM 212.3 31 [facility] Aug 12, 2024 09:59 AM 97.7 68 113/70 18 97 [facility] Aug 12, 2024 06:23 AM 97.5 67 117/67 18 95 [facility] Advance Directives: All historical and current Section Date Range: From patient's date of to the date document was created. This section includes ALL of a patient's completed or amended [place] Advance and Rescinded Directives. The entries below indicate that a directive exists for the patient, but an actual copy is not included with this document. The data comes from all [place] facilities. Date Advance Directives Provider Source Jan 19, 2017 ADVANCE DIRECTIVE DISCUSSION ERICK BARDALES [facility]
--- OUTSIDE RECORDS SUMMARY | 2024-11-17 04:02 | XMS_ITS ---
MD DAILY HOSPITALIZATION DATA [facility] Encounter Summary Created on: November 16, 2024 CHET WALKER : 1950 Sex: Male Author Name [facility] Organization [facility] Address [address] [place] [address] Care Team Providers Care Predictive Maintenance Technician Name Role Phone MANUEL BAIRD Primary [...] PART A Apr 08, 2017 PART A [id number] ASHLEY WALKER PATIENT Selected Encounter This section includes the information on record at MD for the Encounter. Date/Time Encounter Type Encounter Description Reason Pro vider Source Aug 13, 2024 12:24 PM Inpatient Visit DAILY HOSPITALIZATION DATA MARTHA JONES Nav Encounter Template Text not used by MD [...] 20 appointments. The data comes from all [facility]. Appointment Date/Time Appointment Type Appointme nt Facility Name Aug 24, 2024 10:00 AM AMBULATORY - [facility] Aug 24, 2024 10:30 AM [facility]BULATORY - [facility]IC[facility] Aug 30, 2024 09:30 AM AMBULATORY - [facility]ICINE [facility] Aug 31, 2024 01:00 PM AMBULATORY - SURGERY [facility] Sep 21, 2024 01:30 PM AMBULATORY - MEDICINE [facility] Sep 22, 2024 11:00 AM AMBULATORY - MEDICINE [facility] Sep 29, 2024 12:30 PM AMBULATORY - MEDICINE [facility] Oct 02, 2024 09:30 AM AMBULATORY - MEDICINE [facility] Nov 20, 2024 10:30 AM AMBULATORY - SURGERY . [facility] Nov 21, 2024 10:00 AM AMBULATORY - NONE [facility] Dec 11, 2024 10:30 AM AMBULATORY - MEDICINE [facility] Active, Pending, and [...] of theEncounter. The data comes from all [facility]. Test Date/Time Test Type Test Details Facility Name Aug 02, 2024 12:00 AM Laboratory - Chemistry Order CBC BLOOD STAT SP [facility] Aug 02, 2024 12:00 AM Laboratory - Chemistry Order COMPREHENSIVE METABOLIC PANEL GREEN LI/HEP BLD/PLAS PLASMA SP [facility] Aug 17, 2024 03:47 PM Consult Order [facility] Cons Bedside [facility] Lab Results: +/- [...] Range Comment Aug 23, 2024 08:21 AM [facility] MAGNESIUM Specimen Type: PLASMA No comment entered. Ordering Provider: SILVIA REDDY Report Released Date/Time: Aug 22, 2024 11:26 AM Reporting Lab: [facility] [address] Performing Lab: [facility] [address] MAGNESIUM 1.8 mg/dL 1.6-2.6 Aug 23, 2024 08:21 AM [facility] CBC Specimen Type: BLOOD No comment entered. Ordering Provider: SILVIA REDDY Report Released Date/Time: Aug 22, 2024 11:19 AM Reporting Lab: [facility] [address] Performing Lab: [facility] [address] WBC 4.0 10*3/uL 3.6-11.2 RBC 3.65 10*6/uL [...] 10*3/uL 0.00-0.20 Aug 23, 2024 05:12 AM [facility] GLUCOSE,BLOOD-poct (STL) Specimen Type: BLOOD Comment: Test Performed by: [id number] Meter #: [id number] Ordering Provider: SILVIA REDDY Report Released Date/Time: Aug 23, 2024 05:23 AM Reporting Lab: [facility] [address] Performing Lab: [facility] [address] GLUCOSE,BLOOD- poct (STL) 99 mg/dL 72-99 Aug 23, 2024 02:45 AM [facility] OCCULT BLOOD FIT X1 SCREEN Specimen Type: FECES No comment entered. Ordering Provider: SILVIA REDDY Report Released Date/Time: Aug 22, 2024 11:23 AM Reporting Lab: [address] [address] Performing Lab: [address] [address] OCCULT BLOOD (FIT) #1 OF 1 Negative Negative Aug 22, 2024 07:30 PM [facility] OCCULT BLOOD FIT X1 SCREEN Specimen Type: FECES No comment entered. Ordering Provider: SILVIA REDDY Report Released Date/Time: Aug 22, 2024 11:23 AM Reporting Lab: [address] [address] Performing Lab: [place] [address] [facility] [address] OCCULT BLOOD (FIT) #1 OF 1 Negative Negative Aug 22, 2024 06:15 PM [facility] OCCULT BLOOD FIT X1 SCREEN Specimen Type: FECES No comment entered. Ordering Provider: SILVIA REDDY Report Released Date/Time: Aug 22, 2024 11:23 AM Reporting Lab: [address] [address] Performing Lab: [facility] [address] [facility] [address] OCCULT BLOOD (FIT) #1 OF 1 Negative Negative Aug 22, 2024 04:24 PM [facility] GLUCOSE,BLOOD-poct (STL) Specimen Type: BLOOD Comment: Test Performed by: [id number] Meter #: [id number] Ordering Provider: SILVIA REDDY Report Released Date/Time: Aug 22, 2024 04:36 PM Reporting Lab: [facility] [address] Performing Lab: [facility] [address] GLUCOSE,BLOOD- poct (STL) 176 mg/dL H -Aug 22, 2024 04:23 PM [facility] GLUCOSE,BLOOD-poct (STL) Specimen Type: BLOOD Comment: Test Performed by: [id number] Meter #: [id number] Ordering Provider: SILVIA REDDY Report Released Date/Time: Aug 22, 2024 04:36 PM Reporting Lab: [facility] [address] Performing Lab: [facility] [address] GLUCOSE,BLOOD- poct (STL) 221 mg/dL H 72-Aug 22, 2024 11:15 AM [facility] GLUCOSE,BLOOD-poct (STL) Specimen Type: BLOOD Comment: Test Performed by: [id number] Meter #: [id number] Ordering Provider: SILVIA REDDY Report Released Date/Time: Aug 22, 2024 11:27 AM Reporting Lab: [facility] [address] Performing Lab: [facility] [address] GLUCOSE,BLOOD- poct (STL) 140 mg/dL H 72-99 Aug 22, 2024 08:[address] [facility] FERRITIN Specimen Type: SERUM No comment entered. Ordering Provider: JUDIT PERKINS Report Released Date/Time: Aug 18, 2024 11:01 AM Reporting Lab: [facility] [address] [facility] [address] Performing Lab: [facility] [address] [facility] [address] FERRITIN 79.50 ng/mL 22-275 Aug 22, 2024 08:03 AM [facility] IRON/TIBC PROFILE Specimen Type: SERUM No comment entered. Ordering Provider: JUDIT PERKINS Report Released Date/Time: Aug 18, 2024 11:01 AM Reporting Lab: [address] [address] Performing Lab: [address] [address] TIBC 283 ug/dL 250-450 TRANSFERRIN 226 mg/dL 163-344 IRON SATURATION 7 L 20-50 IRON 19 ug/dL L 65-175 Aug 22, 2024 08:03 AM [facility] B12 Specimen Type: SERUM No comment entered. Ordering Provider: JUDIT PERKINS Report Released Date/Time: Aug 18, 2024 11:01 AM Reporting Lab: [facility] [address] Performing Lab: [facility] [address] B12 631 pg/mL 213-816 Aug 22, 2024 08:03 AM [facility] COMPREHENSIVE METABOLIC PANEL Specimen Type: PLASMA Comment: No hemolysis noted. Ordering Provider: SILVIA REDDY Report Released Date/Time: Aug 17, 2024 01:18 PM Reporting Lab: [facility] [address] [facility] [address] Performing Lab: [address] [address] CREATININE 0.80 mg/dL 0.7-1.3 UREA NITROGEN 9.7 [...] 94.0 >60 Aug 22, 2024 08:03 AM [facility] CBC Specimen Type: BLOOD No comment entered. Ordering Provider: SILVIA REDDY Report Released Date/Time: Aug 17, 2024 01:18 PM Reporting Lab: [facility] [address] Performing Lab: [facility] [address] WBC 3.5 10*3/uL L 3.6-11.2 RBC 3.23 [...] NRBC% 0 Aug 22, 2024 05:03 AM [facility] GLUCOSE,BLOOD-poct (STL) Specimen Type: BLOOD Comment: Test Performed by: [id number] Meter #: [id number] Ordering Provider: SILVIA REDDY Report Released Date/Time: Aug 22, 2024 06:17 AM Reporting Lab: [facility] [address] Performing Lab: [facility] [place] [address] GLUCOSE,BLOOD- poct (STL) 170 mg/dL H 72-Aug 21, 2024 04:32 PM [facility] GLUCOSE,BLOOD-poct (STL) Specimen Type: BLOOD Comment: Test Performed by: [id number] Meter #: [id number] Ordering Provider: SILVIA REDDY Report Released Date/Time: Aug 21, 2024 04:49 PM Reporting Lab: [facility] [address] Performing Lab: [facility] [address] GLUCOSE,BLOOD- poct (STL) 169 mg/dL H -99 Aug 21, 2024 11:53 AM [facility] GLUCOSE,BLOOD-poct (STL) Specimen Type: BLOOD Comment: Test Performed by: [id number] Meter #: [id number] Ordering Provider: SILVIA REDDY Report Released Date/Time: Aug 21, 2024 12:11 PM Reporting Lab: [facility] [address] Performing Lab: [facility] [address] GLUCOSE,BLOOD- poct (STL) 149 mg/dL H 72-99 Aug 21, 2024 05:10 AM [facility] GLUCOSE,BLOOD-poct (STL) Specimen Type: BLOOD Comment: Test Performed by: [id number] Meter #: [id number] Ordering Provider: SILVIA REDDY Report Released Date/Time: Aug 21, 2024 05:27 AM Reporting Lab: [facility] [place] [address] Performing Lab: [facility] [place] [id number] GLUCOSE,BLOOD- poct (STL) 118 mg/dL H 72-99 Aug 20, 2024 04:38 PM [facility] GLUCOSE,BLOOD-poct (STL) Specimen Type: BLOOD Comment: Test Performed by: [id number] Meter #: [id number] Ordering Provider: SILVIA REDDY Report Released Date/Time: Aug 21, 2024 01:55 AM Reporting Lab: [facility] [place] [address] Performing Lab: [facility] [place] [address] GLUCOSE,BLOOD- poct (STL) 169 mg/dL H 72-99 Aug 20, 2024 04:36 PM [facility] GLUCOSE,BLOOD-poct (STL) Specimen Type: BLOOD Comment: Test Performed by: [id number] Meter #: [id number] Ordering Provider: SILVIA REDDY Report Released Date/Time: Aug 21, 2024 01:55 AM Reporting Lab: [facility] [place] [address] Performing Lab: [facility] [place] [address] GLUCOSE,BLOOD- poct (STL) 395 mg/dL H 72-99 Aug 20, 2024 11:45 AM [facility] GLUCOSE,BLOOD-poct (STL) Specimen Type: BLOOD Comment: Test Performed by: [id number] Meter #: [id number] Ordering Provider: SILVIA REDDY Report Released Date/Time: Aug 20, 2024 11:56 AM Reporting Lab: [facility] [address] Performing Lab: [facility] [address] GLUCOSE,BLOOD- poct (STL) 169 mg/dL H 72-Aug 20, 2024 05:06 AM [facility] GLUCOSE,BLOOD-poct (STL) Specimen Type: BLOOD Comment: Test Performed by: [id number] Meter #: [id number] Ordering Provider: SILVIA REDDY Report Released Date/Time: Aug 20, 2024 06:05 AM Reporting Lab: [facility] [address] Performing Lab: [facility] [address] GLUCOSE,BLOOD- poct (STL) 115 mg/dL H 72-Aug 19, 2024 04:23 PM [facility] GLUCOSE,BLOOD-poct (STL) Specimen Type: BLOOD Comment: Test Performed by: [id number] Meter #: [id number] Ordering Provider: SILVIA REDDY Report Released Date/Time: Aug 19, 2024 05:54 PM Reporting Lab: [facility] [address] Performing Lab: [facility] [address] GLUCOSE,BLOOD- poct (STL) 137 mg/dL H 72-99 Aug 19, 2024 11:28 AM [facility] GLUCOSE,BLOOD-poct (STL) Specimen Type: BLOOD Comment: Test Performed by: [id number] Meter #: [id number] Ordering Provider: SILVIA REDDY Report Released Date/Time: Aug 19, 2024 11:51 AM Reporting Lab: [facility] [address] Performing Lab: [facility] [address] GLUCOSE,BLOOD- poct (STL) 190 mg/dL H 72-99 Aug 19, 2024 05:21 AM [facility] GLUCOSE,BLOOD-poct (STL) Specimen Type: BLOOD Comment: Test Performed by: [id number] Meter #: [id number] Ordering Provider: SILVIA REDDY Report Released Date/Time: Aug 19, 2024 05:56 AM Reporting Lab: [facility] [address] Performing Lab: [facility] [address] GLUCOSE,BLOOD- poct (STL) 130 mg/dL H Aug 18, 2024 04:49 PM [facility] GLUCOSE,BLOOD-poct (STL) Specimen Type: BLOOD Comment: Test Performed by: [id number] Meter #: [id number] Ordering Provider: SILVIA REDDY Report Released Date/Time: Aug 18, 2024 05:01 PM Reporting Lab: [facility] [address] Performing Lab: [facility] [address] GLUCOSE,BLOOD- poct (STL) 129 mg/dL H Aug 18, 2024 11:23 AM [facility] GLUCOSE,BLOOD-poct (STL) Specimen Type: BLOOD Comment: Test Performed by: [id number] Meter #: [id number] Ordering Provider: SILVIA REDDY Report Released Date/Time: Aug 18, 2024 11:41 AM Reporting Lab: [facility] [address] Performing Lab: [facility] [address] GLUCOSE,BLOOD- poct (STL) 180 mg/dL H Aug 18, 2024 05:08 AM [facility] GLUCOSE,BLOOD-poct (STL) Specimen Type: BLOOD Comment: Test Performed by: [id number] Meter #: [id number] Ordering Provider: SILVIA REDDY Report Released Date/Time: Aug 18, 2024 05:31 AM Reporting Lab: [facility] [address] Performing Lab: [facility] [address] GLUCOSE,BLOOD- poct (STL) 127 mg/dL H 72-Aug 17, 2024 07:32 PM [facility] GLUCOSE,BLOOD-poct (STL) Specimen Type: BLOOD Comment: Test Performed by: [id number] Meter #: [id number] Ordering Provider: SILVIA REDDY Report Released Date/Time: Aug 17, 2024 07:59 PM Reporting Lab: [facility] [address] Performing Lab: [facility] [place] [address] GLUCOSE,BLOOD- poct (STL) 154 mg/dL H -Aug 17, 2024 04:24 PM [facility] GLUCOSE,BLOOD-poct (STL) Specimen Type: BLOOD Comment: Test Performed by: [id number] Meter #: [id number] Ordering Provider: SILVIA REDDY Report Released Date/Time: Aug 17, 2024 04:35 PM Reporting Lab: [facility] [place] [phone] Performing Lab: [facility] [place] [address] GLUCOSE,BLOOD- poct (STL) 178 mg/dL H 72-Aug 17, 2024 05:09 AM [facility] GLUCOSE,BLOOD-poct (STL) Specimen Type: BLOOD Comment: Test Performed by: [id number] Meter #: [id number] Ordering Provider: SILVIA REDDY Report Released Date/Time: Aug 17, 2024 05:54 AM Reporting Lab: [facility] [address] Performing Lab: [facility] [address] GLUCOSE,BLOOD- poct (STL) 124 mg/dL H 72-Aug 16, 2024 07:40 PM [facility] GLUCOSE,BLOOD-poct (STL) Specimen Type: BLOOD Comment: Test Performed by: [id number] Meter #: [id number] Ordering Provider: SILVIA REDDY Report Released Date/Time: Aug 16, 2024 08:28 PM Reporting Lab: [facility] [address] Performing Lab: [facility] [address] GLUCOSE,BLOOD- poct (STL) 144 mg/dL H 72-Aug 16, 2024 04:19 PM [facility] GLUCOSE,BLOOD-poct (STL) Specimen Type: BLOOD Comment: Test Performed by: [id number] Meter #: [id number] Ordering Provider: SILVIA REDDY Report Released Date/Time: Aug 16, 2024 04:45 PM Reporting Lab: [facility] [address] Performing Lab: [facility] [address] GLUCOSE,BLOOD- poct (STL) 138 mg/dL H 72-Aug 16, 2024 11:52 AM [facility] GLUCOSE,BLOOD-poct (STL) Specimen Type: BLOOD Comment: Test Performed by: [id number] Meter #: [id number] Ordering Provider: SILVIA REDDY Report Released Date/Time: Aug 16, 2024 12:04 PM Reporting Lab: [facility] [address] Performing Lab: [facility] [address] GLUCOSE,BLOOD- poct (STL) 135 mg/dL H 72-99 Aug 16, 2024 05:24 AM [facility] GLUCOSE,BLOOD-poct (STL) Specimen Type: BLOOD Comment: Test Performed by: [id number] Meter #: [id number] Ordering Provider: SILVIA REDDY Report Released Date/Time: Aug 16, 2024 05:38 AM Reporting Lab: [facility] [address] Performing Lab: [facility] [address] GLUCOSE,BLOOD- poct (STL) 151 mg/dL H Aug 15, 2024 07:31 PM [facility] GLUCOSE,BLOOD-poct (STL) Specimen Type: BLOOD Comment: Test Performed by: [id number] Meter #: [id number] Ordering Provider: SILVIA REDDY Report Released Date/Time: Aug 15, 2024 08:07 PM Reporting Lab: [facility] [address] Performing Lab: [facility] [address] GLUCOSE,BLOOD- poct (STL) 173 mg/dL H Aug 15, 2024 04:18 PM [facility] GLUCOSE,BLOOD-poct (STL) Specimen Type: BLOOD Comment: Test Performed by: [id number] Meter #: [id number] Ordering Provider: SILVIA REDDY Report Released Date/Time: Aug 15, 2024 04:59 PM Reporting Lab: [facility] [address] Performing Lab: [facility] [address] GLUCOSE,BLOOD- poct (STL) 136 mg/dL H Aug 15, 2024 04:16 PM [facility] GLUCOSE,BLOOD-poct (STL) Specimen Type: BLOOD Comment: Test Performed by: [id number] Meter #: [id number] Ordering Provider: SILVIA REDDY Report Released Date/Time: Aug 15, 2024 04:59 PM Reporting Lab: [facility] [place] [address] Performing Lab: [facility] [address] GLUCOSE,BLOOD- poct (STL) 194 mg/dL H 72-Aug 15, 2024 11:39 AM [facility] GLUCOSE,BLOOD-poct (STL) Specimen Type: BLOOD Comment: Test Performed by: [id number] Meter #: [id number] Ordering Provider: SILVIA REDDY Report Released Date/Time: Aug 15, 2024 12:00 PM Reporting Lab: [facility] [place] [address] Performing Lab: [facility] [place] [address] GLUCOSE,BLOOD- poct (STL) 127 mg/dL H 72-Aug 15, 2024 05:07 AM [facility] GLUCOSE,BLOOD-poct (STL) Specimen Type: BLOOD Comment: Test Performed by: [id number] Meter #: [id number] Ordering Provider: SILVIA REDDY Report Released Date/Time: Aug 15, 2024 06:14 AM Reporting Lab: [facility] [place] [address] Performing Lab: [facility] [place] [address] GLUCOSE,BLOOD- poct (STL) 151 mg/dL H 72-Aug 14, 2024 04:22 PM [facility] GLUCOSE,BLOOD-poct (STL) Specimen Type: BLOOD Comment: Test Performed by: [id number] Meter #: [id number] Ordering Provider: SILVIA REDDY Report Released Date/Time: Aug 14, 2024 04:52 PM Reporting Lab: [facility] [address] Performing Lab: [facility] [address] GLUCOSE,BLOOD- poct (STL) 129 mg/dL H 72-99 Aug 14, 2024 11:21 AM [facility] GLUCOSE,BLOOD-poct (STL) Specimen Type: BLOOD Comment: Test Performed by: [id number] Meter #: [id number] Ordering Provider: SILVIA REDDY Report Released Date/Time: Aug 14, 2024 11:37 AM Reporting Lab: [facility] [address] Performing Lab: [facility] [address] GLUCOSE,BLOOD- poct (STL) 135 mg/dL H 72-Aug 14, 2024 06:59 AM [facility] QUANTIFERON-TB,4 TUBE Specimen Type: BLOOD [...] For additional information, please refer to [email or web address]/[email or web address] (This link is being provided for information/ educational purposes only.) Test Performed by [email or web address] [place], [facility], [address] [place] [address] Tommie Garcia M.D., Ph.D., Director of Laboratories , [facility] [id number] Ordering Provider: SILVIA REDDY Report Released Date/Time: Aug 11, 2024 03:58 PM Reporting Lab: [facility] [address] [facility] [address] Performing Lab: [facility] [id number] [place] [address] .NIL - QUANTIFERON 0.04 [IU]/mL .MITOGEN-NIL 0.39 [IU]/mL .QUANTIFERON INDETERMINATE NEGATIVE .TB1-NIL <0.00 [IU]/mL .TB2-NIL <0.00 [IU]/mL Aug 14, 2024 06:59 AM [facility] MAGNESIUM Specimen Type: PLASMA Comment: No hemolysis noted. Ordering Provider: SILVIA REDDY Report Released Date/Time: Aug 11, 2024 03:58 PM Reporting Lab: [facility] [address] Performing Lab: [facility] [address] MAGNESIUM 1.9 mg/dL 1.6-2.6 Aug 14, 2024 06:59 AM [facility] B12 Specimen Type: SERUM No comment entered. Ordering Provider: SILVIA REDDY Report Released Date/Time: Aug 11, 2024 03:58 PM Reporting Lab: [facility] [address] Performing Lab: [facility] [address] B12 757 pg/mL 213-816 Aug 14, 2024 06:59 AM [facility] FOLATE (STL-MA) Specimen Type: SERUM No comment entered. Ordering Provider: SILVIA REDDY Report Released Date/Time: Aug 11, 2024 03:58 PM Reporting Lab: [facility] [address] Performing Lab: [facility] [address] FOLATE ([facility]) 6.8 ng/mL L 7-20 Aug 14, 2024 06:59 AM [facility] VITAMIN D, 25-HYDROXY Specimen Type: SERUM No comment entered. Ordering Provider: SILVIA REDDY Report Released Date/Time: Aug 11, 2024 03:58 PM Reporting Lab: [facility] [id number] Performing Lab: [facility] [id number] VITAMIN D, 25-HYDROXY 8.9 ng/mL L 30-96 Aug 14, 2024 06:59 AM [facility] COMPREHENSIVE METABOLIC PANEL Specimen Type: PLASMA Comment: No hemolysis noted. Ordering Provider: SILVIA REDDY Report Released Date/Time: Aug 11, 2024 03:58 PM Reporting Lab: [facility] [phone] Performing Lab: [facility] [address] CREATININE 0.75 mg/dL 0.70-1.30 UREA NITROGEN 13.6 [...] 95.88 >60 Aug 14, 2024 06:59 AM [facility] CBC Specimen Type: BLOOD No comment entered. Ordering Provider: SILVIA REDDY Report Released Date/Time: Aug 11, 2024 03:58 PM Reporting Lab: [facility] [phone] Performing Lab: [facility] [phone] WBC 4.1 10*3/uL 3.6-11.2 RBC 3.20 10*6/uL [...] 10*3/uL 0.00-0.20 Aug 14, 2024 05:08 AM [facility] GLUCOSE,BLOOD-poct ([facility]) Specimen Type: BLOOD Comment: Test Performed by: [id number] Meter #: [id number] Ordering Provider: SILVIA REDDY Report Released Date/Time: Aug 14, 2024 05:52 AM Reporting Lab: [facility] [phone] Performing Lab: [facility] [address] GLUCOSE,BLOOD- poct ([facility]) 135 mg/dL H 72-99 Aug 13, 2024 04:27 PM [facility] GLUCOSE,BLOOD-poct (STL) Specimen Type: BLOOD Comment: Test Performed by: [id number] Meter #: [id number] Ordering Provider: SILVIA REDDY Report Released Date/Time: Aug 13, 2024 04:41 PM Reporting Lab: [facility] [address] Performing Lab: [facility] [address] GLUCOSE,BLOOD- poct (STL) 181 mg/dL H -Aug 13, 2024 11:33 AM [facility] GLUCOSE,BLOOD-poct (STL) Specimen Type: BLOOD Comment: Test Performed by: [id number] Meter #: [id number] Ordering Provider: SILVIA REDDY Report Released Date/Time: Aug 13, 2024 03:55 PM Reporting Lab: [facility] [address] Performing Lab: [facility] [address] GLUCOSE,BLOOD- poct (STL) 140 mg/dL H -Aug 13, 2024 05:54 AM [facility] GLUCOSE,BLOOD-poct (STL) Specimen Type: BLOOD Comment: Test Performed by: [id number] Meter #: [id number] Ordering Provider: SILVIA REDDY Report Released Date/Time: Aug 13, 2024 06:20 AM Reporting Lab: [facility] [address] Performing Lab: [facility] [address] GLUCOSE,BLOOD- poct (STL) 112 mg/dL H Aug 12, 2024 04:35 PM [facility] GLUCOSE,BLOOD-poct (STL) Specimen Type: BLOOD Comment: Test Performed by: [id number] Meter #: [id number] Ordering Provider: SILVIA REDDY Report Released Date/Time: Aug 12, 2024 04:47 PM Reporting Lab: [facility] [address] Performing Lab: [facility] [address] GLUCOSE,BLOOD- poct (STL) 128 mg/dL H 72-99 Aug 12, 2024 11:26 AM [facility] GLUCOSE,BLOOD-poct (STL) Specimen Type: BLOOD Comment: Test Performed by: [id number] Meter #: [id number] Ordering Provider: SILVIA REDDY Report Released Date/Time: Aug 12, 2024 11:45 AM Reporting Lab: [facility] [address] Performing Lab: [facility] [place] [address] GLUCOSE,BLOOD- poct (STL) 188 mg/dL H 72-Aug 12, 2024 06:13 AM [facility] GLUCOSE,BLOOD-poct (STL) Specimen Type: BLOOD Comment: Test Performed by: [id number] Meter #: [id number] Ordering Provider: SILVIA REDDY Report Released Date/Time: Aug 12, 2024 06:25 AM Reporting Lab: [facility] [address] Performing Lab: [facility] [address] GLUCOSE,BLOOD- poct (STL) 116 mg/dL H 72-99 Aug 11, 2024 04:10 PM [facility] GLUCOSE,BLOOD-poct (STL) Specimen Type: BLOOD Comment: Test Performed by: [id number] Meter #: [id number] Ordering Provider: SILVIA REDDY Report Released Date/Time: Aug 11, 2024 04:27 PM Reporting Lab: [facility] [place] [address] Performing Lab: [facility] [address] GLUCOSE,BLOOD- poct (STL) 184 mg/dL H 72-99 Aug 11, 2024 01:44 PM [facility] MRSA SURVL NARES DNA Specimen Type: [...] Aug 11, 2024 02:03 PM Reporting Lab: [address] [address] Performing Lab: [address] [address] MRSA SURVL NARES DNA Negative Negative Jul 20, 2024 11:18 AM [facility] APTT Specimen Type: PLASMA No comment entered. Ordering Provider: MANUEL BAIRD Report Released Date/Time: Jul 19, 2024 04:00 PM Reporting Lab: [address] [address] Performing Lab: [address] [address] APTT 32.1 s 26.7-39.9 Jul 20, 2024 11:18 AM [facility] PT/INR NEW (L-ID) Specimen Type: PLASMA No comment entered. Ordering Provider: MANUEL BAIRD Report Released Date/Time: Jul 19, 2024 04:00 PM Reporting Lab: [address] [address] Performing Lab: [address] [address] PROTIME 14.4 s H 9.4-12.5 INR VALUE 1.3 {INR} Jul 20, 2024 11:18 AM [facility] CBC Specimen Type: BLOOD No comment entered. Ordering Provider: MANUEL BAIRD Report Released Date/Time: Jul 19, 2024 04:00 PM Reporting Lab: [facility] [address] [facility] [address] Performing Lab: [address] [address] WBC 4.7 10*3/uL 3.6-11.2 RBC 4.86 10*6/uL [...] 1.6 1.0-7.0 Jul 17, 2024 08:02 AM [facility] BASIC METABOLIC PANEL Specimen Type: PLASMA Comment: No hemolysis noted. Ordering Provider: MARY SERNA Report Released Date/Time: Jun 07, 2024 01:43 PM Reporting Lab: [address] [address] Performing Lab: [address] [address] CREATININE 0.85 mg/dL 0.7-1.3 UREA NITROGEN 15.2 [...] Height Weight Body Mass Index Source Aug 13, 2024 07:46 PM 97.6 86 138/77 20 97 [facility] Aug 13, 2024 12:24 PM 0 [facility] Aug 13, 2024 10:48 AM 98 73 125/71 18 96 211.9 30 [facility] Aug 13, 2024 06:16 AM 97.6 73 103/63 18 94 [facility] Advance Directives: All historical and [...] ADVANCE DIRECTIVE DISCUSSION ERICK BARDALES [facility]
--- OUTSIDE RECORDS SUMMARY | 2024-11-17 04:03 | XMS_ITS ---
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 Date/Time Encounter Type Encounter Description Reason Pro vider Source Aug 13, 2024 05:51 PM Inpatient Visit DAILY HOSPITALIZATION DATA [facility] Encounter Template Text not used by [place] [...] 20 appointments. The data comes from all [facility]. Appointment Date/Time Appointment Type Appointme [...] 22, 2024 11:00 AM AMBULATORY - MEDICINE [facility] Sep 29, 2024 12:30 PM AMBULATORY - MEDICINE [facility] Oct 02, 2024 09:30 AM AMBULATORY - MEDICINE [facility] Nov 20, 2024 10:30 AM AMBULATORY - SURGERY [facility] Nov 21, 2024 10:00 AM AMBULATORY - NONE [facility] Dec 11, 2024 10:30 AM AMBULATORY - MEDICINE [facility] Active, Pending, and Scheduled Orders This section includes a listing of several types of active, pending, and scheduled orders, including clinic medications orders, diagnostic test orders, procedure orders and consult orders; where the start date of the order is 45 days before the date of the Encounter or 45 days after the date of theEncounter. The data comes from all [facility]. Test Date/Time Test Type Test Details Facility Name Aug 02, 2024 12:00 AM Laboratory - Chemistry Order CBC BLOOD STAT SP [facility] Aug 02, 2024 12:00 AM Laboratory - Chemistry Order COMPREHENSIVE METABOLIC PANEL GREEN LI/HEP BLD/PLAS PLASMA SP [facility] Aug 17, 2024 03:47 PM Consult Order [facility] Cons Bedside [facility] Lab Results: +/- 30 [...] Comment Aug 23, 2024 08:21 AM [facility] MAGNESIUM Specimen Type: PLASMA No comment entered. Ordering Provider: SILVIA REDDY Report Released Date/Time: Aug 22, 2024 11:26 AM Reporting Lab: [facility] [address] Performing Lab: [facility] [address] MAGNESIUM 1.8 mg/dL 1.6-2.6 Aug 23, 2024 08:21 AM [facility] CBC Specimen Type: BLOOD No comment entered. Ordering Provider: SILVIA REDDY Report Released Date/Time: Aug 22, 2024 11:19 AM Reporting Lab: [facility] [address] Performing Lab: [facility] [address] WBC 4.0 10*3/uL 3.6-11.2 RBC 3.65 10*6/uL [...] 0.00-0.20 Aug 23, 2024 05:12 AM [facility] GLUCOSE,BLOOD-poct (STL) Specimen Type: BLOOD Comment: Test Performed by: [id number] Meter #: [id number] Ordering Provider: SILVIA REDDY Report Released Date/Time: Aug 23, 2024 05:23 AM Reporting Lab: [facility] [address] Performing Lab: [facility] [address] GLUCOSE,BLOOD- poct (STL) 99 mg/dL 72-99 Aug 23, 2024 02:45 AM [facility] OCCULT BLOOD FIT X1 SCREEN Specimen Type: FECES No comment entered. Ordering Provider: SILVIA REDDY Report Released Date/Time: Aug 22, 2024 11:23 AM Reporting Lab: [address] [address] Performing Lab: [address] [address] OCCULT BLOOD (FIT) #1 OF 1 Negative Negative Aug 22, 2024 07:30 PM [facility] OCCULT BLOOD FIT X1 SCREEN Specimen Type: FECES No comment entered. Ordering Provider: SILVIA REDDY Report Released Date/Time: Aug 22, 2024 11:23 AM Reporting Lab: [address] [address] Performing Lab: [address] [address] OCCULT BLOOD (FIT) #1 OF 1 Negative Negative Aug 22, 2024 06:15 PM [facility] OCCULT BLOOD FIT X1 SCREEN Specimen Type: FECES No comment entered. Ordering Provider: SILVIA REDDY Report Released Date/Time: Aug 22, 2024 11:23 AM Reporting Lab: [address] [address] Performing Lab: [facility] [address] [facility] [address] OCCULT BLOOD (FIT) #1 OF 1 Negative Negative Aug 22, 2024 04:24 PM [facility] GLUCOSE,BLOOD-poct (STL) Specimen Type: BLOOD Comment: Test Performed by: [id number] Meter #: [id number] Ordering Provider: SILVIA REDDY Report Released Date/Time: Aug 22, 2024 04:36 PM Reporting Lab: [facility] [address] Performing Lab: [facility] [address] GLUCOSE,BLOOD- poct (STL) 176 mg/dL H -Aug 22, 2024 04:23 PM [facility] GLUCOSE,BLOOD-poct (STL) Specimen Type: BLOOD Comment: Test Performed by: [id number] Meter #: [id number] Ordering Provider: SILVIA REDDY Report Released Date/Time: Aug 22, 2024 04:36 PM Reporting Lab: [facility] [address] Performing Lab: [facility] [address] GLUCOSE,BLOOD- poct (STL) 221 mg/dL H 72-Aug 22, 2024 11:15 AM [facility] GLUCOSE,BLOOD-poct (STL) Specimen Type: BLOOD Comment: Test Performed by: [id number] Meter #: [id number] Ordering Provider: SILVIA REDDY Report Released Date/Time: Aug 22, 2024 11:27 AM Reporting Lab: [facility] [address] Performing Lab: [facility] [address] GLUCOSE,BLOOD- poct (STL) 140 mg/dL H 72-Aug 22, 2024 08:03 AM [facility] FERRITIN Specimen Type: SERUM No comment entered. Ordering Provider: JUDIT PERKINS Report Released Date/Time: Aug 18, 2024 11:01 AM Reporting Lab: [facility] [address] [facility] [address] Performing Lab: [facility] [address] [facility] [address] FERRITIN 79.50 ng/mL 22-275 Aug 22, 2024 08:03 AM [facility] IRON/TIBC PROFILE Specimen Type: SERUM No comment entered. Ordering Provider: JUDIT PERKINS Report Released Date/Time: Aug 18, 2024 11:01 AM Reporting Lab: [address] [address] Performing Lab: [address] [address] TIBC 283 ug/dL 250-450 TRANSFERRIN 226 mg/dL 163-344 IRON SATURATION 7 L 20-50 IRON 19 ug/dL L 65-175 Aug 22, 2024 08:03 AM [facility] B12 Specimen Type: SERUM No comment entered. Ordering Provider: JUDIT PERKINS Report Released Date/Time: Aug 18, 2024 11:01 AM Reporting Lab: [facility] [address] Performing Lab: [facility] [address] B12 631 pg/mL 213-816 Aug 22, 2024 08:03 AM [facility] COMPREHENSIVE METABOLIC PANEL Specimen Type: PLASMA Comment: No hemolysis noted. Ordering Provider: SILVIA REDDY Report Released Date/Time: Aug 17, 2024 01:18 PM Reporting Lab: [facility] [address] [facility] [address] Performing Lab: [address] [address] CREATININE 0.80 mg/dL 0.7-1.3 UREA NITROGEN 9.7 [...] 94.0 >60 Aug 22, 2024 08:03 AM [facility] CBC Specimen Type: BLOOD No comment entered. Ordering Provider: SILVIA REDDY Report Released Date/Time: Aug 17, 2024 01:18 PM Reporting Lab: [facility] [address] Performing Lab: [facility] [address] WBC 3.5 10*3/uL L 3.6-11.2 RBC 3.23 [...] 0 Aug 22, 2024 05:03 AM [facility] GLUCOSE,BLOOD-poct (STL) Specimen Type: BLOOD Comment: Test Performed by: [id number] Meter #: [id number] Ordering Provider: SILVIA REDDY Report Released Date/Time: Aug 22, 2024 06:17 AM Reporting Lab: [facility] [address] Performing Lab: [facility] [facility] [address] GLUCOSE,BLOOD- poct (STL) 170 mg/dL H 72-Aug 21, 2024 04:32 PM [facility] GLUCOSE,BLOOD-poct (STL) Specimen Type: BLOOD Comment: Test Performed by: [id number] Meter #: [id number] Ordering Provider: SILVIA REDDY Report Released Date/Time: Aug 21, 2024 04:49 PM Reporting Lab: [facility] [address] Performing Lab: [facility] [address] GLUCOSE,BLOOD- poct (STL) 169 mg/dL H -99 Aug 21, 2024 11:53 AM [facility] GLUCOSE,BLOOD-poct (STL) Specimen Type: BLOOD Comment: Test Performed by: [id number] Meter #: [id number] Ordering Provider: SILVIA REDDY Report Released Date/Time: Aug 21, 2024 12:11 PM Reporting Lab: [facility] [facility] [address] Performing Lab: [facility] [address] GLUCOSE,BLOOD- poct (STL) 149 mg/dL H 72-99 Aug 21, 2024 05:10 AM [facility] GLUCOSE,BLOOD-poct (STL) Specimen Type: BLOOD Comment: Test Performed by: [id number] Meter #: [id number] Ordering Provider: SILVIA REDDY Report Released Date/Time: Aug 21, 2024 05:27 AM Reporting Lab: [facility] [place] [address] Performing Lab: [facility] [place] [phone] GLUCOSE,BLOOD- poct (STL) 118 mg/dL H 72-99 Aug 20, 2024 04:38 PM [facility] GLUCOSE,BLOOD-poct (STL) Specimen Type: BLOOD Comment: Test Performed by: [id number] Meter #: [id number] Ordering Provider: SILVIA REDDY Report Released Date/Time: Aug 21, 2024 01:55 AM Reporting Lab: [facility] [place] [address] Performing Lab: [facility] [place] [address] GLUCOSE,BLOOD- poct (STL) 169 mg/dL H 72-Aug 20, 2024 04:36 PM [facility] GLUCOSE,BLOOD-poct (STL) Specimen Type: BLOOD Comment: Test Performed by: [id number] Meter #: [id number] Ordering Provider: SILVIA REDDY Report Released Date/Time: Aug 21, 2024 01:55 AM Reporting Lab: [facility] [place] [address] Performing Lab: [facility] [place] [address] GLUCOSE,BLOOD- poct (STL) 395 mg/dL H 72-99 Aug 20, 2024 11:45 AM [facility] GLUCOSE,BLOOD-poct (STL) Specimen Type: BLOOD Comment: Test Performed by: [id number] Meter #: [id number] Ordering Provider: SILVIA REDDY Report Released Date/Time: Aug 20, 2024 11:56 AM Reporting Lab: [facility] [address] Performing Lab: [facility] [address] GLUCOSE,BLOOD- poct (STL) 169 mg/dL H 72-Aug 20, 2024 05:06 AM [facility] GLUCOSE,BLOOD-poct (STL) Specimen Type: BLOOD Comment: Test Performed by: [id number] Meter #: [id number] Ordering Provider: SILVIA REDDY Report Released Date/Time: Aug 20, 2024 06:05 AM Reporting Lab: [facility] [address] Performing Lab: [facility] [address] GLUCOSE,BLOOD- poct (STL) 115 mg/dL H 72-Aug 19, 2024 04:23 PM [facility] GLUCOSE,BLOOD-poct (STL) Specimen Type: BLOOD Comment: Test Performed by: [id number] Meter #: [id number] Ordering Provider: SILVIA REDDY Report Released Date/Time: Aug 19, 2024 05:54 PM Reporting Lab: [facility] [address] Performing Lab: [facility] [address] GLUCOSE,BLOOD- poct (STL) 137 mg/dL H 72-99 Aug 19, 2024 11:28 AM [facility] GLUCOSE,BLOOD-poct (STL) Specimen Type: BLOOD Comment: Test Performed by: [id number] Meter #: [id number] Ordering Provider: SILVIA REDDY Report Released Date/Time: Aug 19, 2024 11:51 AM Reporting Lab: [facility] [address] Performing Lab: [facility] [address] GLUCOSE,BLOOD- poct (STL) 190 mg/dL H 72-99 Aug 19, 2024 05:21 AM [facility] GLUCOSE,BLOOD-poct (STL) Specimen Type: BLOOD Comment: Test Performed by: [id number] Meter #: [id number] Ordering Provider: SILVIA REDDY Report Released Date/Time: Aug 19, 2024 05:56 AM Reporting Lab: [facility] [address] Performing Lab: [facility] [address] GLUCOSE,BLOOD- poct (STL) 130 mg/dL H Aug 18, 2024 04:49 PM [facility] GLUCOSE,BLOOD-poct (STL) Specimen Type: BLOOD Comment: Test Performed by: [id number] Meter #: [id number] Ordering Provider: SILVIA REDDY Report Released Date/Time: Aug 18, 2024 05:01 PM Reporting Lab: [facility] [address] Performing Lab: [facility] [facility] [address] GLUCOSE,BLOOD- poct (STL) 129 mg/dL H Aug 18, 2024 11:23 AM [facility] GLUCOSE,BLOOD-poct (STL) Specimen Type: BLOOD Comment: Test Performed by: [id number] Meter #: [id number] Ordering Provider: SILVIA REDDY Report Released Date/Time: Aug 18, 2024 11:41 AM Reporting Lab: [facility] [address] Performing Lab: [facility] [address] GLUCOSE,BLOOD- poct (STL) 180 mg/dL H Aug 18, 2024 05:08 AM [facility] GLUCOSE,BLOOD-poct (STL) Specimen Type: BLOOD Comment: Test Performed by: [id number] Meter #: [id number] Ordering Provider: SILVIA REDDY Report Released Date/Time: Aug 18, 2024 05:31 AM Reporting Lab: [facility] [place] [address] Performing Lab: [facility] [address] GLUCOSE,BLOOD- poct (STL) 127 mg/dL H -Aug 17, 2024 07:32 PM [facility] GLUCOSE,BLOOD-poct (STL) Specimen Type: BLOOD Comment: Test Performed by: [id number] Meter #: [id number] Ordering Provider: SILVIA REDDY Report Released Date/Time: Aug 17, 2024 07:59 PM Reporting Lab: [facility] [place] [address] Performing Lab: [facility] [place] [address] GLUCOSE,BLOOD- poct (STL) 154 mg/dL H -Aug 17, 2024 04:24 PM [facility] GLUCOSE,BLOOD-poct (STL) Specimen Type: BLOOD Comment: Test Performed by: [id number] Meter #: [id number] Ordering Provider: SILVIA REDDY Report Released Date/Time: Aug 17, 2024 04:35 PM Reporting Lab: [facility] [place] [address] Performing Lab: [facility] [place] [address] GLUCOSE,BLOOD- poct (STL) 178 mg/dL H -Aug 17, 2024 05:09 AM [facility] GLUCOSE,BLOOD-poct (STL) Specimen Type: BLOOD Comment: Test Performed by: [id number] Meter #: [id number] Ordering Provider: SILVIA REDDY Report Released Date/Time: Aug 17, 2024 05:54 AM Reporting Lab: [facility] [address] Performing Lab: [facility] [address] GLUCOSE,BLOOD- poct (STL) 124 mg/dL H 72-Aug 16, 2024 07:40 PM [facility] GLUCOSE,BLOOD-poct (STL) Specimen Type: BLOOD Comment: Test Performed by: [id number] Meter #: [id number] Ordering Provider: SILVIA REDDY Report Released Date/Time: Aug 16, 2024 08:28 PM Reporting Lab: [facility] [address] Performing Lab: [facility] [address] GLUCOSE,BLOOD- poct (STL) 144 mg/dL H -Aug 16, 2024 04:19 PM [facility] GLUCOSE,BLOOD-poct (STL) Specimen Type: BLOOD Comment: Test Performed by: [id number] Meter #: [id number] Ordering Provider: SILVIA REDDY Report Released Date/Time: Aug 16, 2024 04:45 PM Reporting Lab: [facility] [address] Performing Lab: [facility] [address] GLUCOSE,BLOOD- poct (STL) 138 mg/dL H 72-Aug 16, 2024 11:52 AM [facility] GLUCOSE,BLOOD-poct (STL) Specimen Type: BLOOD Comment: Test Performed by: [id number] Meter #: [id number] Ordering Provider: SILVIA REDDY Report Released Date/Time: Aug 16, 2024 12:04 PM Reporting Lab: [facility] [address] Performing Lab: [facility] [address] GLUCOSE,BLOOD- poct (STL) 135 mg/dL H 72-99 Aug 16, 2024 05:24 AM [facility] GLUCOSE,BLOOD-poct (STL) Specimen Type: BLOOD Comment: Test Performed by: [id number] Meter #: [id number] Ordering Provider: SILVIA REDDY Report Released Date/Time: Aug 16, 2024 05:38 AM Reporting Lab: [facility] [address] Performing Lab: [facility] [address] GLUCOSE,BLOOD- poct (STL) 151 mg/dL H Aug 15, 2024 07:31 PM [facility] GLUCOSE,BLOOD-poct (STL) Specimen Type: BLOOD Comment: Test Performed by: [id number] Meter #: [id number] Ordering Provider: SILVIA REDDY Report Released Date/Time: Aug 15, 2024 08:07 PM Reporting Lab: [facility] [address] Performing Lab: [facility] [address] GLUCOSE,BLOOD- poct (STL) 173 mg/dL H Aug 15, 2024 04:18 PM [facility] GLUCOSE,BLOOD-poct (STL) Specimen Type: BLOOD Comment: Test Performed by: [id number] Meter #: [id number] Ordering Provider: SILVIA REDDY Report Released Date/Time: Aug 15, 2024 04:59 PM Reporting Lab: [facility] [address] Performing Lab: [facility] [address] GLUCOSE,BLOOD- poct (STL) 136 mg/dL H Aug 15, 2024 04:16 PM [facility] GLUCOSE,BLOOD-poct (STL) Specimen Type: BLOOD Comment: Test Performed by: [id number] Meter #: [id number] Ordering Provider: SILVIA REDDY Report Released Date/Time: Aug 15, 2024 04:59 PM Reporting Lab: [facility] [place] [address] Performing Lab: [facility] [address] GLUCOSE,BLOOD- poct (STL) 194 mg/dL H 72-Aug 15, 2024 11:39 AM [facility] GLUCOSE,BLOOD-poct (STL) Specimen Type: BLOOD Comment: Test Performed by: [id number] Meter #: [id number] Ordering Provider: SILVIA REDDY Report Released Date/Time: Aug 15, 2024 12:00 PM Reporting Lab: [facility] [place] [address] Performing Lab: [facility] [place] [address] GLUCOSE,BLOOD- poct (STL) 127 mg/dL H -Aug 15, 2024 05:07 AM [facility] GLUCOSE,BLOOD-poct (STL) Specimen Type: BLOOD Comment: Test Performed by: [id number] Meter #: [id number] Ordering Provider: SILVIA REDDY Report Released Date/Time: Aug 15, 2024 06:14 AM Reporting Lab: [facility] [place] [address] Performing Lab: [facility] [place] [address] GLUCOSE,BLOOD- poct (STL) 151 mg/dL H -Aug 14, 2024 04:22 PM [facility] GLUCOSE,BLOOD-poct (STL) Specimen Type: BLOOD Comment: Test Performed by: [id number] Meter #: [id number] Ordering Provider: SILVIA REDDY Report Released Date/Time: Aug 14, 2024 04:52 PM Reporting Lab: [facility] [address] Performing Lab: [facility] [address] GLUCOSE,BLOOD- poct (STL) 129 mg/dL H 72-99 Aug 14, 2024 11:21 AM [facility] GLUCOSE,BLOOD-poct (STL) Specimen Type: BLOOD Comment: Test Performed by: [id number] Meter #: [id number] Ordering Provider: SILVIA REDDY Report Released Date/Time: Aug 14, 2024 11:37 AM Reporting Lab: [facility] [address] Performing Lab: [facility] [address] GLUCOSE,BLOOD- poct (STL) 135 mg/dL H 72-Aug 14, 2024 06:59 AM [facility] QUANTIFERON-TB,4 TUBE Specimen Type: BLOOD Comment: [...] For additional information, please refer to http://education. [employer]/faq/NJO513 (This link is being provided for information/ educational purposes only.) Test Performed by [facility] [employer], [employer] [facility], [address] [place] [address] Tommie Garcia M.D., Ph.D., Director of Laboratories , [facility] [id number] Ordering Provider: SILVIA REDDY Report Released Date/Time: Aug 11, 2024 03:58 PM Reporting Lab: [facility] [address] [facility] [address] Performing Lab: [facility] [id number] [place] [address] .NIL - QUANTIFERON 0.04 [IU]/mL .MITOGEN-NIL 0.39 [IU]/mL .QUANTIFERON INDETERMINATE NEGATIVE .TB1-NIL <0.00 [IU]/mL .TB2-NIL <0.00 [IU]/mL Aug 14, 2024 06:59 AM [facility] MAGNESIUM Specimen Type: PLASMA Comment: No hemolysis noted. Ordering Provider: SILVIA REDDY Report Released Date/Time: Aug 11, 2024 03:58 PM Reporting Lab: [facility] [address] [place] [phone] Performing Lab: [facility] [address] [facility] [phone] MAGNESIUM 1.9 mg/dL 1.6-2.6 Aug 14, 2024 06:59 AM [facility] B12 Specimen Type: SERUM No comment entered. Ordering Provider: SILVIA REDDY Report Released Date/Time: Aug 11, 2024 03:58 PM Reporting Lab: [facility] [address] [facility] [phone] Performing Lab: [facility] [address] [facility] [address] B12 757 pg/mL 213-816 Aug 14, 2024 06:59 AM [facility] FOLATE ([facility]) Specimen Type: SERUM No comment entered. Ordering Provider: SILVIA REDDY Report Released Date/Time: Aug 11, 2024 03:58 PM Reporting Lab: [facility] [address] [facility] [phone] Performing Lab: [facility] [facility] [id number] FOLATE ([facility]) 6.8 ng/mL L 7-20 Aug 14, 2024 06:59 AM [facility] VITAMIN D, 25-HYDROXY Specimen Type: SERUM No comment entered. Ordering Provider: SILVIA REDDY Report Released Date/Time: Aug 11, 2024 03:58 PM Reporting Lab: [facility] [facility] [address] Performing Lab: [facility] [facility] [address] VITAMIN D, 25-HYDROXY 8.9 ng/mL L 30-96 Aug 14, 2024 06:59 AM [facility] COMPREHENSIVE METABOLIC PANEL Specimen Type: PLASMA Comment: No hemolysis noted. Ordering Provider: SILVIA REDDY Report Released Date/Time: Aug 11, 2024 03:58 PM Reporting Lab: [facility] [address] Performing Lab: [facility] [address] CREATININE 0.75 mg/dL 0.70-1.30 UREA NITROGEN 13.6 [...] >60 Aug 14, 2024 06:59 AM [facility] CBC Specimen Type: BLOOD No comment entered. Ordering Provider: SILVIA REDDY Report Released Date/Time: Aug 11, 2024 03:58 PM Reporting Lab: [facility] [address] Performing Lab: [facility] [address] WBC 4.1 10*3/uL 3.6-11.2 RBC 3.20 10*6/uL [...] 0.00-0.20 Aug 14, 2024 05:08 AM [facility] GLUCOSE,BLOOD-poct (STL) Specimen Type: BLOOD Comment: Test Performed by: [id number] Meter #: [id number] Ordering Provider: SILVIA REDDY Report Released Date/Time: Aug 14, 2024 05:52 AM Reporting Lab: [facility] [address] Performing Lab: [facility] [address] GLUCOSE,BLOOD- poct (STL) 135 mg/dL H 72-99 Aug 13, 2024 04:27 PM [facility] GLUCOSE,BLOOD-poct (STL) Specimen Type: BLOOD Comment: Test Performed by: [id number] Meter #: [id number] Ordering Provider: SILVIA REDDY Report Released Date/Time: Aug 13, 2024 04:41 PM Reporting Lab: [facility] [facility] [address] Performing Lab: [facility] [address] GLUCOSE,BLOOD- poct (STL) 181 mg/dL H -Aug 13, 2024 11:33 AM [facility] GLUCOSE,BLOOD-poct (STL) Specimen Type: BLOOD Comment: Test Performed by: [id number] Meter #: [id number] Ordering Provider: SILVIA REDDY Report Released Date/Time: Aug 13, 2024 03:55 PM Reporting Lab: [facility] [address] Performing Lab: [facility] [place] [address] GLUCOSE,BLOOD- poct (STL) 140 mg/dL H Aug 13, 2024 05:54 AM [facility] GLUCOSE,BLOOD-poct (STL) Specimen Type: BLOOD Comment: Test Performed by: [id number] Meter #: [id number] Ordering Provider: SILVIA REDDY Report Released Date/Time: Aug 13, 2024 06:20 AM Reporting Lab: [facility] [facility] [address] Performing Lab: [facility] [facility] [address] GLUCOSE,BLOOD- poct (STL) 112 mg/dL H Aug 12, 2024 04:35 PM [facility] GLUCOSE,BLOOD-poct (STL) Specimen Type: BLOOD Comment: Test Performed by: [id number] Meter #: [id number] Ordering Provider: SILVIA REDDY Report Released Date/Time: Aug 12, 2024 04:47 PM Reporting Lab: [facility] [facility] [address] Performing Lab: [facility] [facility] [address] GLUCOSE,BLOOD- poct (STL) 128 mg/dL H 72-99 Aug 12, 2024 11:26 AM [facility] GLUCOSE,BLOOD-poct (STL) Specimen Type: BLOOD Comment: Test Performed by: [id number] Meter #: [id number] Ordering Provider: SILVIA REDDY Report Released Date/Time: Aug 12, 2024 11:45 AM Reporting Lab: [facility] [facility] [address] Performing Lab: [facility] [place] [address] GLUCOSE,BLOOD- poct (STL) 188 mg/dL H -Aug 12, 2024 06:13 AM [facility] GLUCOSE,BLOOD-poct (STL) Specimen Type: BLOOD Comment: Test Performed by: [id number] Meter #: [id number] Ordering Provider: SILVIA REDDY Report Released Date/Time: Aug 12, 2024 06:25 AM Reporting Lab: [facility] [facility] [address] Performing Lab: [facility] [facility] [address] GLUCOSE,BLOOD- poct (STL) 116 mg/dL H 72-99 Aug 11, 2024 04:10 PM [facility] GLUCOSE,BLOOD-poct (STL) Specimen Type: BLOOD Comment: Test Performed by: [id number] Meter #: [id number] Ordering Provider: SILVIA REDDY Report Released Date/Time: Aug 11, 2024 04:27 PM Reporting Lab: [facility] [place] [address] Performing Lab: [facility] [facility] [address] GLUCOSE,BLOOD- poct (STL) 184 mg/dL H 72-99 Aug 11, 2024 01:44 PM [facility] MRSA SURVL NARES DNA Specimen Type: [...] Aug 11, 2024 02:03 PM Reporting Lab: [address] [address] Performing Lab: [address] [address] MRSA SURVL NARES DNA Negative Negative Jul 20, 2024 11:18 AM [facility] APTT Specimen Type: PLASMA No comment entered. Ordering Provider: MANUEL BAIRD Report Released Date/Time: Jul 19, 2024 04:00 PM Reporting Lab: [address] [address] Performing Lab: [address] [address] APTT 32.1 s 26.7-39.9 Jul 20, 2024 11:18 AM [facility] PT/INR NEW (L-VA) Specimen Type: PLASMA No comment entered. Ordering Provider: MANUEL BAIRD Report Released Date/Time: Jul 19, 2024 04:00 PM Reporting Lab: [address] [address] Performing Lab: [address] [address] PROTIME 14.4 s H 9.4-12.5 INR VALUE 1.3 {INR} Jul 20, 2024 11:18 AM [facility] CBC Specimen Type: BLOOD No comment entered. Ordering Provider: MANUEL BAIRD Report Released Date/Time: Jul 19, 2024 04:00 PM Reporting Lab: [facility] [address] [facility] [address] Performing Lab: [address] [address] WBC 4.7 10*3/uL 3.6-11.2 RBC 4.86 10*6/uL [...] 1.6 1.0-7.0 Jul 17, 2024 08:02 AM [facility] BASIC METABOLIC PANEL Specimen Type: PLASMA Comment: No hemolysis noted. Ordering Provider: MARY SERNA Report Released Date/Time: Jun 07, 2024 01:43 PM Reporting Lab: [facility] [address] [place] [address] Performing Lab: [address] [address] CREATININE 0.85 mg/dL 0.7-1.3 UREA NITROGEN 15.2 [...] 07:46 PM 97.6 86 138/77 20 97 [facility] Aug 13, 2024 12:24 PM 0 [facility] Aug 13, 2024 10:48 AM 98 73 125/71 18 96 211.9 30 [facility] Aug 13, 2024 06:16 AM 97.6 73 103/63 18 94 [facility] Advance Directives: All historical and current Section Date Range: From patient's date of to the date document was created. This section includes ALL of a patient's completed or amended [place] Advance and Rescinded Directives. The entries below indicate that a directive exists for the patient, but an actual copy is not included with this document. The data comes from all [place] facilities. Date Advance Directives Provider Source Jan 19, 2017 ADVANCE DIRECTIVE DISCUSSION ERICK BARDALES [facility]
--- OUTSIDE RECORDS SUMMARY | 2024-11-17 04:03 | XMS_ITS ---
[place] DAILY HOSPITALIZATION DATA [facility] Encounter Summary Created on: November 16, 2024 CHET WALKER : 1950 Sex: Male Author Name [facility] [place] [facility] [place] Address [address] [place] [address] Care Team Providers Care Coke Oven Mason Name Role Phone MANUEL BAIRD Primary Care [...] PART A Apr 08, 2017 PART A [id number] ASHLEY WALKER PATIENT Selected Encounter This section includes the information on record at [place] for the Encounter. Date/Time Encounter Type Encounter Description Reason Pro vider Source Aug 13, 2024 12:27 PM Inpatient Visit DAILY HOSPITALIZATION DATA MARTHA JONES Nav Encounter Template Text not used by [place] [...] 20 appointments. The data comes from all [facility]. Appointment Date/Time Appointment Type Appointme nt Facility Name Aug 24, 2024 10:00 AM AMBULATORY - MEDICINE [facility] Aug 24, 2024 10:30 AM AMBULATORY - MEDICINE [facility] Aug 30, 2024 09:30 AM AMBULATORY - MEDICINE [facility] Aug 31, 2024 01:00 PM AMBULATORY - SURGERY [facility] Sep 21, 2024 01:30 PM AMBULATORY - MEDICINE [facility] Sep 22, 2024 11:00 AM AMBULATORY - MEDICINE [facility] Sep 29, 2024 12:30 PM AMBULATORY - MEDICINE [facility] Oct 02, 2024 09:30 AM AMBULATORY - MEDICINE [facility] Nov 20, 2024 10:30 AM AMBULATORY - SURGERY . [facility] Nov 21, 2024 10:00 AM AMBULATORY - NONE [facility] Dec 11, 2024 10:30 AM AMBULATORY - MEDICINE [facility] Active, Pending, and Scheduled Orders This section includes a listing of several types of active, pending, and scheduled orders, including clinic medications orders, diagnostic test orders, procedure orders and consult orders; where the start date of the order is 45 days before the date of the Encounter or 45 days after the date of theEncounter. The data comes from all [facility]. Test Date/Time Test Type Test Details Facility Name Aug 02, 2024 12:00 AM Laboratory - Chemistry Order CBC BLOOD STAT SP [facility] Aug 02, 2024 12:00 AM Laboratory - Chemistry Order COMPREHENSIVE METABOLIC PANEL GREEN LI/HEP BLD/PLAS PLASMA SP [facility] Aug 17, 2024 03:47 PM Consult Order [facility] Cons Bedside [facility] Lab Results: +/- 30 days [...] Aug 22, 2024 11:26 AM Reporting Lab: [facility] [address] Performing Lab: [facility] [address] MAGNESIUM 1.8 mg/dL 1.6-2.6 Aug 23, 2024 08:21 AM [facility] CBC Specimen Type: BLOOD No comment entered. Ordering Provider: SILVIA REDDY Report Released Date/Time: Aug 22, 2024 11:19 AM Reporting Lab: [facility] [address] Performing Lab: [facility] [address] WBC 4.0 10*3/uL 3.6-11.2 RBC 3.65 10*6/uL [...] Specimen Type: BLOOD Comment: Test Performed by: [id number] Meter #: [id number] Ordering Provider: SILVIA REDDY Report Released Date/Time: Aug 23, 2024 05:23 AM Reporting Lab: [facility] [address] Performing Lab: [facility] [address] GLUCOSE,BLOOD- poct (STL) 99 mg/dL 72-99 Aug 23, 2024 02:45 AM [facility] OCCULT BLOOD FIT X1 SCREEN Specimen Type: FECES No comment entered. Ordering Provider: SILVIA REDDY Report Released Date/Time: Aug 22, 2024 11:23 AM Reporting Lab: [address] [address] Performing Lab: [address] [address] OCCULT BLOOD (FIT) #1 OF 1 Negative Negative Aug 22, 2024 07:30 PM [facility] OCCULT BLOOD FIT X1 SCREEN Specimen Type: FECES No comment entered. Ordering Provider: SILVIA REDDY Report Released Date/Time: Aug 22, 2024 11:23 AM Reporting Lab: [address] [address] Performing Lab: [place] [address] [facility] [address] OCCULT BLOOD (FIT) #1 OF 1 Negative Negative Aug 22, 2024 06:15 PM [facility] OCCULT BLOOD FIT X1 SCREEN Specimen Type: FECES No comment entered. Ordering Provider: SILVIA REDDY Report Released Date/Time: Aug 22, 2024 11:23 AM Reporting Lab: [address] [address] Performing Lab: [facility] [address] [facility] [address] OCCULT BLOOD (FIT) #1 OF 1 Negative Negative Aug 22, 2024 04:24 PM [facility] GLUCOSE,BLOOD-poct (STL) Specimen Type: BLOOD Comment: Test Performed by: [id number] Meter #: [id number] Ordering Provider: SILVIA REDDY Report Released Date/Time: Aug 22, 2024 04:36 PM Reporting Lab: [facility] [address] Performing Lab: [facility] [address] GLUCOSE,BLOOD- poct (STL) 176 mg/dL H -Aug 22, 2024 04:23 PM [facility] GLUCOSE,BLOOD-poct (STL) Specimen Type: BLOOD Comment: Test Performed by: [id number] Meter #: [id number] Ordering Provider: SILVIA REDDY Report Released Date/Time: Aug 22, 2024 04:36 PM Reporting Lab: [facility] [address] Performing Lab: [facility] [address] GLUCOSE,BLOOD- poct (STL) 221 mg/dL H 72-Aug 22, 2024 11:15 AM [facility] GLUCOSE,BLOOD-poct (STL) Specimen Type: BLOOD Comment: Test Performed by: [id number] Meter #: [id number] Ordering Provider: SILVIA REDDY Report Released Date/Time: Aug 22, 2024 11:27 AM Reporting Lab: [facility] [address] Performing Lab: [facility] [address] GLUCOSE,BLOOD- poct (STL) 140 mg/dL H 72-99 Aug 22, 2024 08:03 AM [facility] FERRITIN Specimen Type: SERUM No comment entered. Ordering Provider: JUDIT PERKINS Report Released Date/Time: Aug 18, 2024 11:01 AM Reporting Lab: [facility] [address] [facility] [address] Performing Lab: [facility] [address] [facility] [address] FERRITIN 79.50 ng/mL 22-275 Aug 22, 2024 08:03 AM [facility] B12 Specimen Type: SERUM No comment entered. Ordering Provider: JUDIT PERKINS Report Released Date/Time: Aug 18, 2024 11:01 AM Reporting Lab: [facility] [address] Performing Lab: [facility] [address] B12 631 pg/mL 213-816 Aug 22, 2024 08:03 AM [facility] IRON/TIBC PROFILE Specimen Type: SERUM No comment entered. Ordering Provider: JUDIT PERKINS Report Released Date/Time: Aug 18, 2024 11:01 AM Reporting Lab: [place] [address] [facility] [address] Performing Lab: [address] [address] TIBC 283 ug/dL 250-450 TRANSFERRIN 226 mg/dL 163-344 IRON SATURATION 7 L 20-50 IRON 19 ug/dL L 65-175 Aug 22, 2024 08:03 AM [facility] COMPREHENSIVE METABOLIC PANEL Specimen Type: PLASMA Comment: No hemolysis noted. Ordering Provider: SILVIA REDDY Report Released Date/Time: Aug 17, 2024 01:18 PM Reporting Lab: [facility] [address] [facility] [address] Performing Lab: [address] [address] CREATININE 0.80 mg/dL 0.7-1.3 UREA NITROGEN 9.7 [...] 94.0 >60 Aug 22, 2024 08:03 AM [facility] CBC Specimen Type: BLOOD No comment entered. Ordering Provider: SILVIA REDDY Report Released Date/Time: Aug 17, 2024 01:18 PM Reporting Lab: [facility] [address] Performing Lab: [facility] [address] WBC 3.5 10*3/uL L 3.6-11.2 RBC 3.23 [...] NRBC% 0 Aug 22, 2024 05:03 AM [facility] GLUCOSE,BLOOD-poct (STL) Specimen Type: BLOOD Comment: Test Performed by: [id number] Meter #: [id number] Ordering Provider: SILVIA REDDY Report Released Date/Time: Aug 22, 2024 06:17 AM Reporting Lab: [facility] [address] Performing Lab: [facility] [place] [address] GLUCOSE,BLOOD- poct (STL) 170 mg/dL H 72-Aug 21, 2024 04:32 PM [facility] GLUCOSE,BLOOD-poct (STL) Specimen Type: BLOOD Comment: Test Performed by: [id number] Meter #: [id number] Ordering Provider: SILVIA REDDY Report Released Date/Time: Aug 21, 2024 04:49 PM Reporting Lab: [facility] [facility] [address] Performing Lab: [facility] [address] GLUCOSE,BLOOD- poct (STL) 169 mg/dL H -99 Aug 21, 2024 11:53 AM [facility] GLUCOSE,BLOOD-poct (STL) Specimen Type: BLOOD Comment: Test Performed by: [id number] Meter #: [id number] Ordering Provider: SILVIA REDDY Report Released Date/Time: Aug 21, 2024 12:11 PM Reporting Lab: [facility] [facility] [address] Performing Lab: [facility] [address] GLUCOSE,BLOOD- poct (STL) 149 mg/dL H 72-99 Aug 21, 2024 05:10 AM [facility] GLUCOSE,BLOOD-poct (STL) Specimen Type: BLOOD Comment: Test Performed by: [id number] Meter #: [id number] Ordering Provider: SILVIA REDDY Report Released Date/Time: Aug 21, 2024 05:27 AM Reporting Lab: [facility] [place] [address] Performing Lab: [facility] [address] [place] [phone] GLUCOSE,BLOOD- poct (STL) 118 mg/dL H 72-99 Aug 20, 2024 04:38 PM [facility] GLUCOSE,BLOOD-poct (STL) Specimen Type: BLOOD Comment: Test Performed by: [id number] Meter #: [id number] Ordering Provider: SILVIA REDDY Report Released Date/Time: Aug 21, 2024 01:55 AM Reporting Lab: [facility] [place] [address] Performing Lab: [facility] [place] [address] GLUCOSE,BLOOD- poct (STL) 169 mg/dL H 72-99 Aug 20, 2024 04:36 PM [facility] GLUCOSE,BLOOD-poct (STL) Specimen Type: BLOOD Comment: Test Performed by: [id number] Meter #: [id number] Ordering Provider: SILVIA REDDY Report Released Date/Time: Aug 21, 2024 01:55 AM Reporting Lab: [facility] [place] [address] Performing Lab: [facility] [place] [address] GLUCOSE,BLOOD- poct (STL) 395 mg/dL H 72-99 Aug 20, 2024 11:45 AM [facility] GLUCOSE,BLOOD-poct (STL) Specimen Type: BLOOD Comment: Test Performed by: [id number] Meter #: [id number] Ordering Provider: SILVIA REDDY Report Released Date/Time: Aug 20, 2024 11:56 AM Reporting Lab: [facility] [address] Performing Lab: [facility] [facility] [address] GLUCOSE,BLOOD- poct (STL) 169 mg/dL H 72-Aug 20, 2024 05:06 AM [facility] GLUCOSE,BLOOD-poct (STL) Specimen Type: BLOOD Comment: Test Performed by: [id number] Meter #: [id number] Ordering Provider: SILVIA REDDY Report Released Date/Time: Aug 20, 2024 06:05 AM Reporting Lab: [facility] [facility] [address] Performing Lab: [facility] [facility] [address] GLUCOSE,BLOOD- poct (STL) 115 mg/dL H 72-Aug 19, 2024 04:23 PM [facility] GLUCOSE,BLOOD-poct (STL) Specimen Type: BLOOD Comment: Test Performed by: [id number] Meter #: [id number] Ordering Provider: SILVIA REDDY Report Released Date/Time: Aug 19, 2024 05:54 PM Reporting Lab: [facility] [facility] [address] Performing Lab: [facility] [address] GLUCOSE,BLOOD- poct (STL) 137 mg/dL H 72-99 Aug 19, 2024 11:28 AM [facility] GLUCOSE,BLOOD-poct (STL) Specimen Type: BLOOD Comment: Test Performed by: [id number] Meter #: [id number] Ordering Provider: SILVIA REDDY Report Released Date/Time: Aug 19, 2024 11:51 AM Reporting Lab: [facility] [facility] [address] Performing Lab: [facility] [facility] [address] GLUCOSE,BLOOD- poct (STL) 190 mg/dL H 72-99 Aug 19, 2024 05:21 AM [facility] GLUCOSE,BLOOD-poct (STL) Specimen Type: BLOOD Comment: Test Performed by: [id number] Meter #: [id number] Ordering Provider: SILVIA REDDY Report Released Date/Time: Aug 19, 2024 05:56 AM Reporting Lab: [facility] [facility] [address] Performing Lab: [facility] [facility] [address] GLUCOSE,BLOOD- poct (STL) 130 mg/dL H Aug 18, 2024 04:49 PM [facility] GLUCOSE,BLOOD-poct (STL) Specimen Type: BLOOD Comment: Test Performed by: [id number] Meter #: [id number] Ordering Provider: SILVIA REDDY Report Released Date/Time: Aug 18, 2024 05:01 PM Reporting Lab: [facility] [address] Performing Lab: [facility] [address] GLUCOSE,BLOOD- poct (STL) 129 mg/dL H Aug 18, 2024 11:23 AM [facility] GLUCOSE,BLOOD-poct (STL) Specimen Type: BLOOD Comment: Test Performed by: [id number] Meter #: [id number] Ordering Provider: SILVIA REDDY Report Released Date/Time: Aug 18, 2024 11:41 AM Reporting Lab: [facility] [facility] [address] Performing Lab: [facility] [address] GLUCOSE,BLOOD- poct (STL) 180 mg/dL H Aug 18, 2024 05:08 AM [facility] GLUCOSE,BLOOD-poct (STL) Specimen Type: BLOOD Comment: Test Performed by: [id number] Meter #: [id number] Ordering Provider: SILVIA REDDY Report Released Date/Time: Aug 18, 2024 05:31 AM Reporting Lab: [facility] [address] Performing Lab: [facility] [address] GLUCOSE,BLOOD- poct (STL) 127 mg/dL H 72-Aug 17, 2024 07:32 PM [facility] GLUCOSE,BLOOD-poct (STL) Specimen Type: BLOOD Comment: Test Performed by: [id number] Meter #: [id number] Ordering Provider: SILVIA REDDY Report Released Date/Time: Aug 17, 2024 07:59 PM Reporting Lab: [facility] [facility] [address] Performing Lab: [facility] [place] [address] GLUCOSE,BLOOD- poct (STL) 154 mg/dL H -Aug 17, 2024 04:24 PM [facility] GLUCOSE,BLOOD-poct (STL) Specimen Type: BLOOD Comment: Test Performed by: [id number] Meter #: [id number] Ordering Provider: SILVIA REDDY Report Released Date/Time: Aug 17, 2024 04:35 PM Reporting Lab: [facility] [place] [phone] Performing Lab: [facility] [place] [address] GLUCOSE,BLOOD- poct (STL) 178 mg/dL H 72-Aug 17, 2024 05:09 AM [facility] GLUCOSE,BLOOD-poct (STL) Specimen Type: BLOOD Comment: Test Performed by: [id number] Meter #: [id number] Ordering Provider: SILVIA REDDY Report Released Date/Time: Aug 17, 2024 05:54 AM Reporting Lab: [facility] [address] Performing Lab: [facility] [address] GLUCOSE,BLOOD- poct (STL) 124 mg/dL H 72-Aug 16, 2024 07:40 PM [facility] GLUCOSE,BLOOD-poct (STL) Specimen Type: BLOOD Comment: Test Performed by: [id number] Meter #: [id number] Ordering Provider: SILVIA REDDY Report Released Date/Time: Aug 16, 2024 08:28 PM Reporting Lab: [facility] [address] Performing Lab: [facility] [address] GLUCOSE,BLOOD- poct (STL) 144 mg/dL H 72-Aug 16, 2024 04:19 PM [facility] GLUCOSE,BLOOD-poct (STL) Specimen Type: BLOOD Comment: Test Performed by: [id number] Meter #: [id number] Ordering Provider: SILVIA REDDY Report Released Date/Time: Aug 16, 2024 04:45 PM Reporting Lab: [facility] [address] Performing Lab: [facility] [address] GLUCOSE,BLOOD- poct (STL) 138 mg/dL H 72-Aug 16, 2024 11:52 AM [facility] GLUCOSE,BLOOD-poct (STL) Specimen Type: BLOOD Comment: Test Performed by: [id number] Meter #: [id number] Ordering Provider: SILVIA REDDY Report Released Date/Time: Aug 16, 2024 12:04 PM Reporting Lab: [facility] [address] Performing Lab: [facility] [address] GLUCOSE,BLOOD- poct (STL) 135 mg/dL H 72-99 Aug 16, 2024 05:24 AM [facility] GLUCOSE,BLOOD-poct (STL) Specimen Type: BLOOD Comment: Test Performed by: [id number] Meter #: [id number] Ordering Provider: SILVIA REDDY Report Released Date/Time: Aug 16, 2024 05:38 AM Reporting Lab: [facility] [address] Performing Lab: [facility] [address] GLUCOSE,BLOOD- poct (STL) 151 mg/dL H Aug 15, 2024 07:31 PM [facility] GLUCOSE,BLOOD-poct (STL) Specimen Type: BLOOD Comment: Test Performed by: [id number] Meter #: [id number] Ordering Provider: SILVIA REDDY Report Released Date/Time: Aug 15, 2024 08:07 PM Reporting Lab: [facility] [address] Performing Lab: [facility] [address] GLUCOSE,BLOOD- poct (STL) 173 mg/dL H Aug 15, 2024 04:18 PM [facility] GLUCOSE,BLOOD-poct (STL) Specimen Type: BLOOD Comment: Test Performed by: [id number] Meter #: [id number] Ordering Provider: SILVIA REDDY Report Released Date/Time: Aug 15, 2024 04:59 PM Reporting Lab: [facility] [address] Performing Lab: [facility] [address] GLUCOSE,BLOOD- poct (STL) 136 mg/dL H Aug 15, 2024 04:16 PM [facility] GLUCOSE,BLOOD-poct (STL) Specimen Type: BLOOD Comment: Test Performed by: [id number] Meter #: [id number] Ordering Provider: SILVIA REDDY Report Released Date/Time: Aug 15, 2024 04:59 PM Reporting Lab: [facility] [place] [address] Performing Lab: [facility] [address] GLUCOSE,BLOOD- poct (STL) 194 mg/dL H 72-Aug 15, 2024 11:39 AM [facility] GLUCOSE,BLOOD-poct (STL) Specimen Type: BLOOD Comment: Test Performed by: [id number] Meter #: [id number] Ordering Provider: SILVIA REDDY Report Released Date/Time: Aug 15, 2024 12:00 PM Reporting Lab: [facility] [place] [address] Performing Lab: [facility] [place] [address] GLUCOSE,BLOOD- poct (STL) 127 mg/dL H 72-Aug 15, 2024 05:07 AM [facility] GLUCOSE,BLOOD-poct (STL) Specimen Type: BLOOD Comment: Test Performed by: [id number] Meter #: [id number] Ordering Provider: SILVIA REDDY Report Released Date/Time: Aug 15, 2024 06:14 AM Reporting Lab: [facility] [place] [address] Performing Lab: [facility] [place] [address] GLUCOSE,BLOOD- poct (STL) 151 mg/dL H 72-Aug 14, 2024 04:22 PM [facility] GLUCOSE,BLOOD-poct (STL) Specimen Type: BLOOD Comment: Test Performed by: [id number] Meter #: [id number] Ordering Provider: SILVIA REDDY Report Released Date/Time: Aug 14, 2024 04:52 PM Reporting Lab: [facility] [address] Performing Lab: [facility] [address] GLUCOSE,BLOOD- poct (STL) 129 mg/dL H 72-99 Aug 14, 2024 11:21 AM [facility] GLUCOSE,BLOOD-poct (STL) Specimen Type: BLOOD Comment: Test Performed by: [id number] Meter #: [id number] Ordering Provider: SILVIA REDDY Report Released Date/Time: Aug 14, 2024 11:37 AM Reporting Lab: [facility] [address] Performing Lab: [facility] [address] GLUCOSE,BLOOD- poct (STL) 135 mg/dL H 72-Aug [...] For additional information, please refer to [email or web address]/[email or web address] (This link is being provided for information/ educational purposes only.) Test Performed by [place], Verified Person [facility], [address] [place] [address] Tommie Garcia M.D., Ph.D., Director of Laboratories , [facility] [id number] Ordering Provider: SILVIA REDDY Report Released Date/Time: Aug 11, 2024 03:58 PM Reporting Lab: [facility] [address] [facility] [address] Performing Lab: [facility] [id number] [place] [address] .NIL - QUANTIFERON 0.04 [IU]/mL .MITOGEN-NIL 0.39 [IU]/mL .QUANTIFERON INDETERMINATE NEGATIVE .TB1-NIL <0.00 [IU]/mL .TB2-NIL <0.00 [IU]/mL Aug 14, 2024 06:59 AM [facility] MAGNESIUM Specimen Type: PLASMA Comment: No hemolysis noted. Ordering Provider: SILVIA REDDY Report Released Date/Time: Aug 11, 2024 03:58 PM Reporting Lab: [facility] [address] Performing Lab: [facility] [address] MAGNESIUM 1.9 mg/dL 1.6-2.6 Aug 14, 2024 06:59 AM [facility] B12 Specimen Type: SERUM No comment entered. Ordering Provider: SILVIA REDDY Report Released Date/Time: Aug 11, 2024 03:58 PM Reporting Lab: [facility] [address] Performing Lab: [facility] [address] B12 757 pg/mL 213-816 Aug 14, 2024 06:59 AM [facility] FOLATE (STL-MA) Specimen Type: SERUM No comment entered. Ordering Provider: SILVIA REDDY Report Released Date/Time: Aug 11, 2024 03:58 PM Reporting Lab: [facility] [address] Performing Lab: [facility] [address] FOLATE (STL-MA) 6.8 ng/mL L 7-20 Aug 14, 2024 06:59 AM [facility] VITAMIN D, 25-HYDROXY Specimen Type: SERUM No comment entered. Ordering Provider: SILVIA REDDY Report Released Date/Time: Aug 11, 2024 03:58 PM Reporting Lab: [facility] [address] Performing Lab: [facility] [address] VITAMIN D, 25-HYDROXY 8.9 ng/mL L 30-96 Aug 14, 2024 06:59 AM [facility] CBC Specimen Type: BLOOD No comment entered. Ordering Provider: SILVIA REDDY Report Released Date/Time: Aug 11, 2024 03:58 PM Reporting Lab: [facility] [address] Performing Lab: [facility] [address] WBC 4.1 10*3/uL 3.6-11.2 RBC 3.20 10*6/uL [...] 2024 06:59 AM [facility] COMPREHENSIVE METABOLIC PANEL Specimen Type: PLASMA Comment: No hemolysis noted. Ordering Provider: SILVIA REDDY Report Released Date/Time: Aug 11, 2024 03:58 PM Reporting Lab: [facility] [address] Performing Lab: [facility] [address] CREATININE 0.75 mg/dL 0.70-1.30 UREA NITROGEN 13.6 [...] 95.88 >60 Aug 14, 2024 05:08 AM [facility] GLUCOSE,BLOOD-poct (STL) Specimen Type: BLOOD Comment: Test Performed by: [id number] Meter #: [id number] Ordering Provider: SIVLIA REDDY Report Released Date/Time: Aug 14, 2024 05:52 AM Reporting Lab: [facility] [address] Performing Lab: [facility] [address] GLUCOSE,BLOOD- poct (STL) 135 mg/dL H 72-99 Aug 13, 2024 04:27 PM [facility] GLUCOSE,BLOOD-poct (STL) Specimen Type: BLOOD Comment: Test Performed by: [id number] Meter #: [id number] Ordering Provider: SILVIA REDDY Report Released Date/Time: Aug 13, 2024 04:41 PM Reporting Lab: [facility] [address] Performing Lab: [facility] [address] GLUCOSE,BLOOD- poct (STL) 181 mg/dL H -Aug 13, 2024 11:33 AM [facility] GLUCOSE,BLOOD-poct (STL) Specimen Type: BLOOD Comment: Test Performed by: [id number] Meter #: [id number] Ordering Provider: SILVIA REDDY Report Released Date/Time: Aug 13, 2024 03:55 PM Reporting Lab: [facility] [address] Performing Lab: [facility] [address] GLUCOSE,BLOOD- poct (STL) 140 mg/dL H -Aug 13, 2024 05:54 AM [facility] GLUCOSE,BLOOD-poct (STL) Specimen Type: BLOOD Comment: Test Performed by: [id number] Meter #: [id number] Ordering Provider: SILVIA REDDY Report Released Date/Time: Aug 13, 2024 06:20 AM Reporting Lab: [facility] [address] Performing Lab: [facility] [address] GLUCOSE,BLOOD- poct (STL) 112 mg/dL H Aug 12, 2024 04:35 PM [facility] GLUCOSE,BLOOD-poct (STL) Specimen Type: BLOOD Comment: Test Performed by: [id number] Meter #: [id number] Ordering Provider: SILVIA REDDY Report Released Date/Time: Aug 12, 2024 04:47 PM Reporting Lab: [facility] [address] Performing Lab: [facility] [address] GLUCOSE,BLOOD- poct (STL) 128 mg/dL H 72-99 Aug 12, 2024 11:26 AM [facility] GLUCOSE,BLOOD-poct (STL) Specimen Type: BLOOD Comment: Test Performed by: [id number] Meter #: [id number] Ordering Provider: SILVIA REDDY Report Released Date/Time: Aug 12, 2024 11:45 AM Reporting Lab: [facility] [address] Performing Lab: [facility] [place] [address] GLUCOSE,BLOOD- poct (STL) 188 mg/dL H 72-Aug 12, 2024 06:13 AM [facility] GLUCOSE,BLOOD-poct (STL) Specimen Type: BLOOD Comment: Test Performed by: [id number] Meter #: [id number] Ordering Provider: SILVIA REDDY Report Released Date/Time: Aug 12, 2024 06:25 AM Reporting Lab: [facility] [address] Performing Lab: [facility] [address] GLUCOSE,BLOOD- poct (STL) 116 mg/dL H 72-99 Aug 11, 2024 04:10 PM [facility] GLUCOSE,BLOOD-poct (STL) Specimen Type: BLOOD Comment: Test Performed by: [id number] Meter #: [id number] Ordering Provider: SILVIA REDDY Report Released Date/Time: Aug 11, 2024 04:27 PM Reporting Lab: [facility] [place] [address] Performing Lab: [facility] [address] GLUCOSE,BLOOD- poct (STL) 184 mg/dL H 72-99 [...] Aug 11, 2024 02:03 PM Reporting Lab: [address] [address] Performing Lab: [address] [address] MRSA SURVL NARES DNA Negative Negative Jul 20, 2024 11:18 AM [facility] APTT Specimen Type: PLASMA No comment entered. Ordering Provider: MANUEL BAIRD Report Released Date/Time: Jul 19, 2024 04:00 PM Reporting Lab: [address] [address] Performing Lab: [address] [address] APTT 32.1 s 26.7-39.9 Jul 20, 2024 11:18 AM [facility] PT/INR NEW (L-NH) Specimen Type: PLASMA No comment entered. Ordering Provider: MANUEL BAIRD Report Released Date/Time: Jul 19, 2024 04:00 PM Reporting Lab: [address] [address] Performing Lab: [address] [address] PROTIME 14.4 s H 9.4-12.5 INR VALUE 1.3 {INR} Jul 20, 2024 11:18 AM [facility] CBC Specimen Type: BLOOD No comment entered. Ordering Provider: MANUEL BAIRD Report Released Date/Time: Jul 19, 2024 04:00 PM Reporting Lab: [facility] [address] [facility] [address] Performing Lab: [address] [address] WBC 4.7 10*3/uL 3.6-11.2 RBC 4.86 10*6/uL [...] 1.6 1.0-7.0 Jul 17, 2024 08:02 AM [facility] BASIC METABOLIC PANEL Specimen Type: PLASMA Comment: No hemolysis noted. Ordering Provider: MARY SERNA Report Released Date/Time: Jun 07, 2024 01:43 PM Reporting Lab: [address] [address] Performing Lab: [address] [address] CREATININE 0.85 mg/dL 0.7-1.3 UREA NITROGEN 15.2 [...] 07:46 PM 97.6 86 138/77 20 97 [facility] Aug 13, 2024 12:24 PM 0 [facility] Aug 13, 2024 10:48 AM 98 73 125/71 18 96 211.9 30 [facility] Aug 13, 2024 06:16 AM 97.6 73 103/63 18 94 [facility] Advance Directives: All [...] 19, 2017 ADVANCE DIRECTIVE DISCUSSION ERICK BARDALES [facility]
--- OUTSIDE RECORDS SUMMARY | 2024-11-17 04:03 | XMS_ITS ---
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 Date/Time Encounter Type Encounter Description Reason Pro vider Source Aug 13, 2024 10:06 PM Inpatient Visit DAILY HOSPITALIZATION DATA NELLI CANDELARIA Encounter Template Text not used by [place] Plan of Treatment: Future Appointments (+ 6 [...] 20 appointments. The data comes from all [facility]. Appointment Date/Time Appointment Type Appointme nt Facility Name Aug 24, 2024 10:00 AM AMBULATORY - MEDICINE [facility] Aug 24, 2024 10:30 AM AMBULATORY - MEDICINE [facility] Aug 30, 2024 09:30 AM AMBULATORY MEDICINE [facility] Aug 31, 2024 01:00 PM AMBULATORY - SURGERY [facility] Sep 21, 2024 01:30 PM AMBULATORY - MEDICINE [facility] Sep 22, 2024 11:00 AM AMBULATORY - MEDICINE [facility] Sep 29, 2024 12:30 PM AMBULATORY - MEDICINE [facility] Oct 02, 2024 09:30 AM AMBULATORY - MEDICINE [facility] Nov 20, 2024 10:30 AM AMBULATORY - SURGERY [facility] Nov 21, 2024 10:00 AM AMBULATORY - NONE [facility] Dec 11, 2024 10:30 AM AMBULATORY - MEDICINE [facility] Active, Pending, and Scheduled Orders This section includes a listing of several types of active, pending, and scheduled orders, including clinic medications orders, diagnostic test orders, procedure orders and consult orders; where the start date of the order is 45 days before the date of the Encounter or 45 days after the date of theEncounter. The data comes from all [facility]. Test Date/Time Test Type Test Details Facility Name Aug 02, 2024 12:00 AM Laboratory - Chemistry Order CBC BLOOD STAT SP [facility] Aug 02, 2024 12:00 AM Laboratory - Chemistry Order COMPREHENSIVE METABOLIC PANEL GREEN LI/HEP BLD/PLAS PLASMA SP [facility] Aug 17, 2024 03:47 PM Consult Order [facility] Cons Bedside [facility] Lab Results: +/- 30 days [...] Range Comment Aug 23, 2024 08:21 AM [facility] MAGNESIUM Specimen Type: PLASMA No comment entered. Ordering Provider: SILVIA REDDY Report Released Date/Time: Aug 22, 2024 11:26 AM Reporting Lab: [facility] [address] Performing Lab: [facility]1 [facility] [address] MAGNESIUM 1.8 mg/dL 1.6-2.6 Aug 23, 2024 08:21 AM [facility] CBC Specimen Type: BLOOD No comment entered. Ordering Provider: SILVIA REDDY Report Released Date/Time: Aug 22, 2024 11:19 AM Reporting Lab: [facility]1 [facility] [address] Performing Lab: [facility] #1 [facility] [address] WBC 4.0 10*3/uL 3.6-11.2 RBC 3.65 10*6/uL [...] 10*3/uL 0.00-0.20 Aug 23, 2024 05:12 AM [facility] GLUCOSE,BLOOD-poct (STL) Specimen Type: BLOOD Comment: Test Performed by: [id number] Meter #: [id number] Ordering Provider: SILVIA REDDY Report Released Date/Time: Aug 23, 2024 05:23 AM Reporting Lab: [facility] [address] Performing Lab: [facility] #1 [facility] [address] GLUCOSE,BLOOD- poct (STL) 99 mg/dL 72-99 Aug 23, 2024 02:45 AM [facility] OCCULT BLOOD FIT X1 SCREEN Specimen Type: FECES No comment entered. Ordering Provider: SILVIA REDDY Report Released Date/Time: Aug 22, 2024 11:23 AM Reporting Lab: [address] [address] Performing Lab: [address] [address] OCCULT BLOOD (FIT) #1 OF 1 Negative Negative Aug 22, 2024 07:30 PM [facility] OCCULT BLOOD FIT X1 SCREEN Specimen Type: FECES No comment entered. Ordering Provider: SILVIA REDDY Report Released Date/Time: Aug 22, 2024 11:23 AM Reporting Lab: [address] [address] Performing Lab: [address] [address] OCCULT BLOOD (FIT) #1 OF 1 Negative Negative Aug 22, 2024 06:15 PM [facility] OCCULT BLOOD FIT X1 SCREEN Specimen Type: FECES No comment entered. Ordering Provider: SILVIA REDDY Report Released Date/Time: Aug 22, 2024 11:23 AM Reporting Lab: [address] [address] Performing Lab: [facility] [address] [facility] [address] OCCULT BLOOD (FIT) #1 OF 1 Negative Negative Aug 22, 2024 04:24 PM [facility] GLUCOSE,BLOOD-poct (STL) Specimen Type: BLOOD Comment: Test Performed by: [id number] Meter #: [id number] Ordering Provider: SILVIA REDDY Report Released Date/Time: Aug 22, 2024 04:36 PM Reporting Lab: [facility]1 [facility] [address] Performing Lab: [facility] #1 [facility] [address] GLUCOSE,BLOOD- poct (STL) 176 mg/dL H -Aug 22, 2024 04:23 PM [facility] GLUCOSE,BLOOD-poct (STL) Specimen Type: BLOOD Comment: Test Performed by: [id number] Meter #: [id number] Ordering Provider: SILVIA REDDY Report Released Date/Time: Aug 22, 2024 04:36 PM Reporting Lab: [facility] [address] Performing Lab: [facility]1 [facility] [address] GLUCOSE,BLOOD- poct (STL) 221 mg/dL H 72-Aug 22, 2024 11:15 AM [facility] GLUCOSE,BLOOD-poct (STL) Specimen Type: BLOOD Comment: Test Performed by: [id number] Meter #: [id number] Ordering Provider: SILVIA REDDY Report Released Date/Time: Aug 22, 2024 11:27 AM Reporting Lab: [facility]1 [facility] [address] Performing Lab: [facility]1 [facility] [address] GLUCOSE,BLOOD- poct (STL) 140 mg/dL H 72-Aug 22, 2024 08:03 AM [facility] FERRITIN Specimen Type: SERUM No comment entered. Ordering Provider: JUDIT PERKINS Report Released Date/Time: Aug 18, 2024 11:01 AM Reporting Lab: [facility] [address] [facility] [address] Performing Lab: [facility] [address] [facility] [address] FERRITIN 79.50 ng/mL 22-275 Aug 22, 2024 08:03 AM [facility] CBC Specimen Type: BLOOD No comment entered. Ordering Provider: SILVIA REDDY Report Released Date/Time: Aug 17, 2024 01:18 PM Reporting Lab: [facility]1 [facility] [address] Performing Lab: [facility]1 [facility] [address] WBC 3.5 10*3/uL L 3.6-11.2 RBC 3.23 [...] NRBC% 0 Aug 22, 2024 08:03 AM [facility] COMPREHENSIVE METABOLIC PANEL Specimen Type: PLASMA Comment: No hemolysis noted. Ordering Provider: SILVIA REDDY Report Released Date/Time: Aug 17, 2024 01:18 PM Reporting Lab: [facility] [address] [place] [address] Performing Lab: [address] [address] CREATININE 0.80 mg/dL 0.7-1.3 UREA NITROGEN 9.7 [...] 94.0 >60 Aug 22, 2024 08:03 AM [facility] IRON/TIBC PROFILE Specimen Type: SERUM No comment entered. Ordering Provider: JUDIT PERKINS Report Released Date/Time: Aug 18, 2024 11:01 AM Reporting Lab: [facility] [address] [facility] [address] Performing Lab: [address] [address] TIBC 283 ug/dL 250-450 TRANSFERRIN 226 mg/dL 163-344 IRON SATURATION 7 L 20-50 IRON 19 ug/dL L 65-175 Aug 22, 2024 08:03 AM [facility] B12 Specimen Type: SERUM No comment entered. Ordering Provider: JUDIT PERKINS Report Released Date/Time: Aug 18, 2024 11:01 AM Reporting Lab: [facility] [facility] [address] Performing Lab: [facility] [facility] [address] B12 631 pg/mL 213-816 Aug 22, 2024 05:03 AM [facility] GLUCOSE,BLOOD-poct (STL) Specimen Type: BLOOD Comment: Test Performed by: [id number] Meter #: [id number] Ordering Provider: SILVIA REDDY Report Released Date/Time: Aug 22, 2024 06:17 AM Reporting Lab: [facility] #1 [facility] [address] Performing Lab: [facility] #1 [facility] [address] GLUCOSE,BLOOD- poct (STL) 170 mg/dL H 72-Aug 21, 2024 04:32 PM [facility] GLUCOSE,BLOOD-poct (STL) Specimen Type: BLOOD Comment: Test Performed by: [id number] Meter #: [id number] Ordering Provider: SILVIA REDDY Report Released Date/Time: Aug 21, 2024 04:49 PM Reporting Lab: [facility] [facility] [address] Performing Lab: [facility] #1 [facility] [address] GLUCOSE,BLOOD- poct (STL) 169 mg/dL H 72-99 Aug 21, 2024 11:53 AM [facility] GLUCOSE,BLOOD-poct (STL) Specimen Type: BLOOD Comment: Test Performed by: [id number] Meter #: [id number] Ordering Provider: SILVIA REDDY Report Released Date/Time: Aug 21, 2024 12:11 PM Reporting Lab: [facility] #1 [facility] [address] Performing Lab: [facility] #1 [facility] [address] GLUCOSE,BLOOD- poct (STL) 149 mg/dL H 72-99 Aug 21, 2024 05:10 AM [facility] GLUCOSE,BLOOD-poct (STL) Specimen Type: BLOOD Comment: Test Performed by: [id number] Meter #: [id number] Ordering Provider: SILVIA REDDY Report Released Date/Time: Aug 21, 2024 05:27 AM Reporting Lab: [facility] [address] [place] [address] Performing Lab: [facility] #[address] [place] [phone] GLUCOSE,BLOOD- poct (STL) 118 mg/dL H 72-99 Aug 20, 2024 04:38 PM [facility] GLUCOSE,BLOOD-poct (STL) Specimen Type: BLOOD Comment: Test Performed by: [id number] Meter #: [id number] Ordering Provider: SILVIA REDDY Report Released Date/Time: Aug 21, 2024 01:55 AM Reporting Lab: [facility] #[address] [place] [address] Performing Lab: [facility] #[address] [place] [address] GLUCOSE,BLOOD- poct (STL) 169 mg/dL H 72-Aug 20, 2024 04:36 PM [facility] GLUCOSE,BLOOD-poct (STL) Specimen Type: BLOOD Comment: Test Performed by: [id number] Meter #: [id number] Ordering Provider: SILVIA REDDY Report Released Date/Time: Aug 21, 2024 01:55 AM Reporting Lab: [facility] [place] [address] Performing Lab: [facility] [place] [address] GLUCOSE,BLOOD- poct (STL) 395 mg/dL H 72-99 Aug 20, 2024 11:45 AM [facility] GLUCOSE,BLOOD-poct (STL) Specimen Type: BLOOD Comment: Test Performed by: [id number] Meter #: [id number] Ordering Provider: SILVIA REDDY Report Released Date/Time: Aug 20, 2024 11:56 AM Reporting Lab: [facility]1 [facility] [address] Performing Lab: [facility] #1 [facility] [address] GLUCOSE,BLOOD- poct (STL) 169 mg/dL H 72-Aug 20, 2024 05:06 AM [facility] GLUCOSE,BLOOD-poct (STL) Specimen Type: BLOOD Comment: Test Performed by: [id number] Meter #: [id number] Ordering Provider: SILVIA REDDY Report Released Date/Time: Aug 20, 2024 06:05 AM Reporting Lab: [facility] #1 [facility] [address] Performing Lab: [facility] #1 [facility] [address] GLUCOSE,BLOOD- poct (STL) 115 mg/dL H 72-Aug 19, 2024 04:23 PM [facility] GLUCOSE,BLOOD-poct (STL) Specimen Type: BLOOD Comment: Test Performed by: [id number] Meter #: [id number] Ordering Provider: SILVIA REDDY Report Released Date/Time: Aug 19, 2024 05:54 PM Reporting Lab: [facility] #1 [facility] [address] Performing Lab: [facility] #1 [facility] [address] GLUCOSE,BLOOD- poct (STL) 137 mg/dL H 72-99 Aug 19, 2024 11:28 AM [facility] GLUCOSE,BLOOD-poct (STL) Specimen Type: BLOOD Comment: Test Performed by: [id number] Meter #: [id number] Ordering Provider: SILVIA REDDY Report Released Date/Time: Aug 19, 2024 11:51 AM Reporting Lab: [facility] #1 [facility] [address] Performing Lab: [facility] #1 [facility] [address] GLUCOSE,BLOOD- poct (STL) 190 mg/dL H 72-99 Aug 19, 2024 05:21 AM [facility] GLUCOSE,BLOOD-poct (STL) Specimen Type: BLOOD Comment: Test Performed by: [id number] Meter #: [id number] Ordering Provider: SILVIA REDDY Report Released Date/Time: Aug 19, 2024 05:56 AM Reporting Lab: [facility] #1 [facility] [address] Performing Lab: [facility] #1 [facility] [address] GLUCOSE,BLOOD- poct (STL) 130 mg/dL H Aug 18, 2024 04:49 PM [facility] GLUCOSE,BLOOD-poct (STL) Specimen Type: BLOOD Comment: Test Performed by: [id number] Meter #: [id number] Ordering Provider: SILVIA REDDY Report Released Date/Time: Aug 18, 2024 05:01 PM Reporting Lab: [facility]1 [facility] [address] Performing Lab: [facility] #1 [facility] [address] GLUCOSE,BLOOD- poct (STL) 129 mg/dL H Aug 18, 2024 11:23 AM [facility] GLUCOSE,BLOOD-poct (STL) Specimen Type: BLOOD Comment: Test Performed by: [id number] Meter #: [id number] Ordering Provider: SILVIA REDDY Report Released Date/Time: Aug 18, 2024 11:41 AM Reporting Lab: [facility] #1 [facility] [address] Performing Lab: [facility] #1 [facility] [address] GLUCOSE,BLOOD- poct (STL) 180 mg/dL H Aug 18, 2024 05:08 AM [facility] GLUCOSE,BLOOD-poct (STL) Specimen Type: BLOOD Comment: Test Performed by: [id number] Meter #: [id number] Ordering Provider: SILVIA REDDY Report Released Date/Time: Aug 18, 2024 05:31 AM Reporting Lab: [facility] #[address] [place] [address] Performing Lab: [facility] #1 [facility] [address] GLUCOSE,BLOOD- poct (STL) 127 mg/dL H -Aug 17, 2024 07:32 PM [facility] GLUCOSE,BLOOD-poct (STL) Specimen Type: BLOOD Comment: Test Performed by: [id number] Meter #: [id number] Ordering Provider: SILVIA REDDY Report Released Date/Time: Aug 17, 2024 07:59 PM Reporting Lab: [facility] #[address] [place] [address] Performing Lab: [facility] #[address] [place] [address] GLUCOSE,BLOOD- poct (STL) 154 mg/dL H -Aug 17, 2024 04:24 PM [facility] GLUCOSE,BLOOD-poct (STL) Specimen Type: BLOOD Comment: Test Performed by: [id number] Meter #: [id number] Ordering Provider: SILVIA REDDY Report Released Date/Time: Aug 17, 2024 04:35 PM Reporting Lab: [facility] #[address] [place] [address] Performing Lab: [facility] #[address] [place] [address] GLUCOSE,BLOOD- poct (STL) 178 mg/dL H -Aug 17, 2024 05:09 AM [facility] GLUCOSE,BLOOD-poct (STL) Specimen Type: BLOOD Comment: Test Performed by: [id number] Meter #: [id number] Ordering Provider: SILVIA REDDY Report Released Date/Time: Aug 17, 2024 05:54 AM Reporting Lab: [facility] #1 [facility] [address] Performing Lab: [facility] #1 [facility] [address] GLUCOSE,BLOOD- poct (STL) 124 mg/dL H 72-Aug 16, 2024 07:40 PM [facility] GLUCOSE,BLOOD-poct (STL) Specimen Type: BLOOD Comment: Test Performed by: [id number] Meter #: [id number] Ordering Provider: SILVIA REDDY Report Released Date/Time: Aug 16, 2024 08:28 PM Reporting Lab: [facility] #1 [facility] [address] Performing Lab: [facility] #1 [facility] [address] GLUCOSE,BLOOD- poct (STL) 144 mg/dL H -Aug 16, 2024 04:19 PM [facility] GLUCOSE,BLOOD-poct (STL) Specimen Type: BLOOD Comment: Test Performed by: [id number] Meter #: [id number] Ordering Provider: SILVIA REDDY Report Released Date/Time: Aug 16, 2024 04:45 PM Reporting Lab: [facility] #1 [facility] [address] Performing Lab: [facility] #1 [facility] [address] GLUCOSE,BLOOD- poct (STL) 138 mg/dL H 72-Aug 16, 2024 11:52 AM [facility] GLUCOSE,BLOOD-poct (STL) Specimen Type: BLOOD Comment: Test Performed by: [id number] Meter #: [id number] Ordering Provider: SILVIA REDDY Report Released Date/Time: Aug 16, 2024 12:04 PM Reporting Lab: [facility] #1 [facility] [address] Performing Lab: [facility] #1 [facility] [address] GLUCOSE,BLOOD- poct (STL) 135 mg/dL H 72-99 Aug 16, 2024 05:24 AM [facility] GLUCOSE,BLOOD-poct (STL) Specimen Type: BLOOD Comment: Test Performed by: [id number] Meter #: [id number] Ordering Provider: SILVIA REDDY Report Released Date/Time: Aug 16, 2024 05:38 AM Reporting Lab: [facility] #1 [facility] [address] Performing Lab: [facility] #1 [facility] [address] GLUCOSE,BLOOD- poct (STL) 151 mg/dL H Aug 15, 2024 07:31 PM [facility] GLUCOSE,BLOOD-poct (STL) Specimen Type: BLOOD Comment: Test Performed by: [id number] Meter #: [id number] Ordering Provider: SILVIA REDDY Report Released Date/Time: Aug 15, 2024 08:07 PM Reporting Lab: [facility]1 [facility] [address] Performing Lab: [facility] #1 [facility] [address] GLUCOSE,BLOOD- poct (STL) 173 mg/dL H Aug 15, 2024 04:18 PM [facility] GLUCOSE,BLOOD-poct (STL) Specimen Type: BLOOD Comment: Test Performed by: [id number] Meter #: [id number] Ordering Provider: SILVIA REDDY Report Released Date/Time: Aug 15, 2024 04:59 PM Reporting Lab: [facility] #1 [facility] [address] Performing Lab: [facility] #1 [facility] [address] GLUCOSE,BLOOD- poct (STL) 136 mg/dL H Aug 15, 2024 04:16 PM [facility] GLUCOSE,BLOOD-poct (STL) Specimen Type: BLOOD Comment: Test Performed by: [id number] Meter #: [id number] Ordering Provider: SILVIA REDDY Report Released Date/Time: Aug 15, 2024 04:59 PM Reporting Lab: [facility] #[address] [place] [address] Performing Lab: [facility] #1 [facility] [address] GLUCOSE,BLOOD- poct (STL) 194 mg/dL H 72-Aug 15, 2024 11:39 AM [facility] GLUCOSE,BLOOD-poct (STL) Specimen Type: BLOOD Comment: Test Performed by: [id number] Meter #: [id number] Ordering Provider: SILVIA REDDY Report Released Date/Time: Aug 15, 2024 12:00 PM Reporting Lab: [facility] #[address] [place] [address] Performing Lab: [facility] #[address] [place] [address] GLUCOSE,BLOOD- poct (STL) 127 mg/dL H -Aug 15, 2024 05:07 AM [facility] GLUCOSE,BLOOD-poct (STL) Specimen Type: BLOOD Comment: Test Performed by: [id number] Meter #: [id number] Ordering Provider: SILVIA REDDY Report Released Date/Time: Aug 15, 2024 06:14 AM Reporting Lab: [facility] #[address] [place] [address] Performing Lab: [facility] #[address] [place] [address] GLUCOSE,BLOOD- poct (STL) 151 mg/dL H -Aug 14, 2024 04:22 PM [facility] GLUCOSE,BLOOD-poct (STL) Specimen Type: BLOOD Comment: Test Performed by: [id number] Meter #: [id number] Ordering Provider: SILVIA REDDY Report Released Date/Time: Aug 14, 2024 04:52 PM Reporting Lab: [facility] #1 [facility] [address] Performing Lab: [facility] #[facility] [address] GLUCOSE,BLOOD- poct (STL) 129 mg/dL H 72-99 Aug 14, 2024 11:21 AM [facility] GLUCOSE,BLOOD-poct (STL) Specimen Type: BLOOD Comment: Test Performed by: [id number] Meter #: [id number] Ordering Provider: SILVIA REDDY Report Released Date/Time: Aug 14, 2024 11:37 AM Reporting Lab: [facility] #[facility] [address] Performing Lab: [facility] #1 [facility] [address] GLUCOSE,BLOOD- poct (STL) 135 mg/dL H 72-Aug 14, 2024 06:59 AM [facility] QUANTIFERON-TB,4 TUBE Specimen Type: BLOOD Comment: [...] For additional information, please refer to [email or web address] BigDoor/faq/XKL863 (This link is being provided for information/ educational purposes only.) Test Performed by [employer] [facility], [address] [place] [address] Tommie Garcia M.D., Ph.D., Director of Laboratories , [facility] [id number] Ordering Provider: SILVIA REDDY Report Released Date/Time: Aug 11, 2024 03:58 PM Reporting Lab: [facility] [address] [facility] [address] Performing Lab: [facility] [address] [place] [address] .NIL - QUANTIFERON 0.04 [IU]/mL .MITOGEN-NIL 0.39 [IU]/mL .QUANTIFERON INDETERMINATE NEGATIVE .TB1-NIL <0.00 [IU]/mL .TB2-NIL <0.00 [IU]/mL Aug 14, 2024 06:59 AM [facility] MAGNESIUM Specimen Type: PLASMA Comment: No hemolysis noted. Ordering Provider: SILVIA REDDY Report Released Date/Time: Aug 11, 2024 03:58 PM Reporting Lab: [facility] [facility] [address] Performing Lab: [facility] [facility] [address] MAGNESIUM 1.9 mg/dL 1.6-2.6 Aug 14, 2024 06:59 AM [facility] B12 Specimen Type: SERUM No comment entered. Ordering Provider: SILVIA REDDY Report Released Date/Time: Aug 11, 2024 03:58 PM Reporting Lab: [facility] [facility] [address] Performing Lab: [facility] [facility] [address] B12 757 pg/mL 213-816 Aug 14, 2024 06:59 AM [facility] COMPREHENSIVE METABOLIC PANEL Specimen Type: PLASMA Comment: No hemolysis noted. Ordering Provider: SILVIA REDDY Report Released Date/Time: Aug 11, 2024 03:58 PM Reporting Lab: [facility] [facility] [id number] Performing Lab: [facility] [facility] [address] CREATININE 0.75 mg/dL 0.70-1.30 UREA NITROGEN 13.6 [...] 95.88 >60 Aug 14, 2024 06:59 AM [facility] CBC Specimen Type: BLOOD No comment entered. Ordering Provider: SILVIA REDDY Report Released Date/Time: Aug 11, 2024 03:58 PM Reporting Lab: [facility] [address] Performing Lab: [facility] [facility] [address] WBC 4.1 10*3/uL 3.6-11.2 RBC 3.20 10*6/uL [...] 10*3/uL 0.00-0.20 Aug 14, 2024 06:59 AM [facility] FOLATE ([facility]) Specimen Type: SERUM No comment entered. Ordering Provider: SILVIA REDDY Report Released Date/Time: Aug 11, 2024 03:58 PM Reporting Lab: [facility] [place] [address] Performing Lab: [facility] [place] [address] FOLATE ([facility]) 6.8 ng/mL L 7-20 Aug 14, 2024 06:59 AM [facility] VITAMIN D, 25-HYDROXY Specimen Type: SERUM No comment entered. Ordering Provider: SILVIA REDDY Report Released Date/Time: Aug 11, 2024 03:58 PM Reporting Lab: [facility] [place] [address] Performing Lab: [facility] [place] [address] VITAMIN D, 25-HYDROXY 8.9 ng/mL L 30-96 Aug 14, 2024 05:08 AM [facility] GLUCOSE,BLOOD-poct ([facility]) Specimen Type: BLOOD Comment: Test Performed by: [id number] Meter #: [id number] Ordering Provider: SILVIA REDDY Report Released Date/Time: Aug 14, 2024 05:52 AM Reporting Lab: [facility] [place] [address] Performing Lab: [facility] [place] [address] GLUCOSE,BLOOD- poct (L) 135 mg/dL H 72-99 Aug 13, 2024 04:27 PM [facility] GLUCOSE,BLOOD-poct (STL) Specimen Type: BLOOD Comment: Test Performed by: [id number] Meter #: [id number] Ordering Provider: SILVIA REDDY Report Released Date/Time: Aug 13, 2024 04:41 PM Reporting Lab: [facility] #1 [facility] [address] Performing Lab: [facility] [address] GLUCOSE,BLOOD- poct (STL) 181 mg/dL H -Aug 13, 2024 11:33 AM [facility] GLUCOSE,BLOOD-poct (STL) Specimen Type: BLOOD Comment: Test Performed by: [id number] Meter #: [id number] Ordering Provider: SILVIA REDDY Report Released Date/Time: Aug 13, 2024 03:55 PM Reporting Lab: [facility] [address] Performing Lab: [facility] [place] [address] GLUCOSE,BLOOD- poct (STL) 140 mg/dL H Aug 13, 2024 05:54 AM [facility] GLUCOSE,BLOOD-poct (STL) Specimen Type: BLOOD Comment: Test Performed by: [id number] Meter #: [id number] Ordering Provider: SILVIA REDDY Report Released Date/Time: Aug 13, 2024 06:20 AM Reporting Lab: [facility] #1 [facility] [address] Performing Lab: [facility] #1 [facility] [address] GLUCOSE,BLOOD- poct (STL) 112 mg/dL H Aug 12, 2024 04:35 PM [facility] GLUCOSE,BLOOD-poct (STL) Specimen Type: BLOOD Comment: Test Performed by: [id number] Meter #: [id number] Ordering Provider: SILVIA REDDY Report Released Date/Time: Aug 12, 2024 04:47 PM Reporting Lab: [facility] [address] Performing Lab: [facility] #1 [facility] [address] GLUCOSE,BLOOD- poct (STL) 128 mg/dL H 72-99 Aug 12, 2024 11:26 AM [facility] GLUCOSE,BLOOD-poct (STL) Specimen Type: BLOOD Comment: Test Performed by: [id number] Meter #: [id number] Ordering Provider: SILVIA REDDY Report Released Date/Time: Aug 12, 2024 11:45 AM Reporting Lab: [facility]1 [facility] [address] Performing Lab: [facility] [place] [address] GLUCOSE,BLOOD- poct (STL) 188 mg/dL H -Aug 12, 2024 06:13 AM [facility] GLUCOSE,BLOOD-poct (STL) Specimen Type: BLOOD Comment: Test Performed by: [id number] Meter #: [id number] Ordering Provider: SILVIA REDDY Report Released Date/Time: Aug 12, 2024 06:25 AM Reporting Lab: [facility]1 [facility] [address] Performing Lab: [facility]1 [facility] [address] GLUCOSE,BLOOD- poct (STL) 116 mg/dL H 72-99 Aug 11, 2024 04:10 PM [facility] GLUCOSE,BLOOD-poct (STL) Specimen Type: BLOOD Comment: Test Performed by: [id number] Meter #: [id number] Ordering Provider: SILVIA REDDY Report Released Date/Time: Aug 11, 2024 04:27 PM Reporting Lab: [facility] [place] [address] Performing Lab: [facility] [address] GLUCOSE,BLOOD- poct (STL) 184 mg/dL H 72-99 Aug 11, 2024 01:44 PM [facility] MRSA SURVL NARES DNA Specimen Type: [...] 11, 2024 02:03 PM Reporting Lab: [address] [address] Performing Lab: [address] [address] MRSA SURVL NARES DNA Negative Negative Jul 20, 2024 11:18 AM [facility] APTT Specimen Type: PLASMA No comment entered. Ordering Provider: MANUEL BAIRD Report Released Date/Time: Jul 19, 2024 04:00 PM Reporting Lab: [address] [address] Performing Lab: [address] [address] APTT 32.1 s 26.7-39.9 Jul 20, 2024 11:18 AM [facility] PT/INR NEW (L-[place]) Specimen Type: PLASMA No comment entered. Ordering Provider: MANUEL BAIRD Report Released Date/Time: Jul 19, 2024 04:00 PM Reporting Lab: [address] [address] Performing Lab: [address] [address] PROTIME 14.4 s H 9.4-12.5 INR VALUE 1.3 {INR} Jul 20, 2024 11:18 AM [facility] CBC Specimen Type: BLOOD No comment entered. Ordering Provider: MANUEL BAIRD Report Released Date/Time: Jul 19, 2024 04:00 PM Reporting Lab: [facility] [address] [facility] [address] Performing Lab: [address] [address] WBC 4.7 10*3/uL 3.6-11.2 RBC 4.86 10*6/uL [...] 1.6 1.0-7.0 Jul 17, 2024 08:02 AM [facility] BASIC METABOLIC PANEL Specimen Type: PLASMA Comment: No hemolysis noted. Ordering Provider: MARY SERNA Report Released Date/Time: Jun 07, 2024 01:43 PM Reporting Lab: [facility] [address] [place] [phone] Performing Lab: [address] [address] CREATININE 0.85 mg/dL 0.7-1.3 UREA NITROGEN 15.2 [...] 07:46 PM 97.6 86 138/77 20 97 [facility] N Aug 13, 2024 12:24 PM 0 [facility] N Aug 13, 2024 10:48 AM 98 73 125/71 18 96 211.9 30 [facility] N Aug 13, 2024 06:16 AM 97.6 73 103/63 18 94 [facility] N Advance Directives: All [...] ADVANCE DIRECTIVE DISCUSSION ERICK BARDALES [facility]
--- OUTSIDE RECORDS SUMMARY | 2024-11-17 04:03 | XMS_ITS ---
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 Date/Time Encounter Type Encounter Description Reason Pro vider Source Aug 13, 2024 10:01 PM Inpatient Visit DAILY HOSPITALIZATION DATA NELLI CANDELARIA Encounter Template Text not used by NH Plan of Treatment: Future Appointments (+ 6 [...] 20 appointments. The [facility] Appointment Date/Time Appointment Type Appointme nt Facility Name Aug 24, 2024 10:00 AM AMBULATORY - MEDICINE [facility] Aug 24, 2024 10:30 AM AMBULATORY - MEDICINE [facility] Aug 30, 2024 09:30 AM AMBULATORY MEDICINE [facility] Aug 31, 2024 01:00 PM AMBULATORY - SURGERY [facility] Sep 21, 2024 01:30 PM AMBULATORY - MEDICINE [facility] Sep 22, 2024 11:00 AM AMBULATORY - MEDICINE [facility] Sep 29, 2024 12:30 PM AMBULATORY - MEDICINE [facility] Oct 02, 2024 09:30 AM AMBULATORY - MEDICINE [facility] Nov 20, 2024 10:30 AM AMBULATORY - SURGERY [facility] Nov 21, 2024 10:00 AM AMBULATORY - NONE [facility] Dec 11, 2024 10:30 AM AMBULATORY - [...] of theEncounter. The [facility] comes [facility]. Test Date/Time Test Type Test Details Facility Name Aug 02, 2024 12:00 AM Laboratory - Chemistry Order CBC BLOOD STAT SP [facility] Aug 02, 2024 12:00 AM Laboratory - Chemistry Order COMPREHENSIVE METABOLIC PANEL GREEN LI/HEP BLD/PLAS PLASMA SP [facility] Aug 17, 2024 03:47 PM Consult Order CRITICAL [facility] Cons Bedside [place] [...] Comment Aug 23, 2024 08:21 AM [facility] MAGNESIUM Specimen Type: PLASMA No comment entered. Ordering Provider: SILVIA REDDY Report Released Date/Time: Aug 22, 2024 11:26 AM Reporting Lab: [facility] [facility] [address] Performing Lab: [facility] [address] MAGNESIUM 1.8 mg/dL 1.6-2.6 Aug 23, 2024 08:21 AM [facility] CBC Specimen Type: BLOOD No comment entered. Ordering Provider: SILVIA REDDY Report Released Date/Time: Aug 22, 2024 11:19 AM Reporting Lab: [facility] [address] Performing Lab: [facility] [address] WBC 4.0 10*3/uL 3.6-11.2 RBC 3.65 10*6/uL [...] 0.00-0.20 Aug 23, 2024 05:12 AM [facility] GLUCOSE,BLOOD-poct (STL) Specimen Type: BLOOD Comment: Test Performed by: [id number] Meter #: [id number] Ordering Provider: SILVIA REDDY Report Released Date/Time: Aug 23, 2024 05:23 AM Reporting Lab: [facility] [address] Performing Lab: [facility] #[address] [facility] [address] GLUCOSE,BLOOD- poct (STL) 99 mg/dL 72-99 Aug 23, 2024 02:45 AM [facility] OCCULT BLOOD FIT X1 SCREEN Specimen Type: FECES No comment entered. Ordering Provider: SILVIA REDDY Report Released Date/Time: Aug 22, 2024 11:23 AM Reporting Lab: [address] [address] Performing Lab: [address] [address] OCCULT BLOOD (FIT) #1 OF 1 Negative Negative Aug 22, 2024 07:30 PM [facility] OCCULT BLOOD FIT X1 SCREEN Specimen Type: FECES No comment entered. Ordering Provider: SILVIA REDDY Report Released Date/Time: Aug 22, 2024 11:23 AM Reporting Lab: [address] [address] Performing Lab: [address] [address] OCCULT BLOOD (FIT) #1 OF 1 Negative Negative Aug 22, 2024 06:15 PM [facility] OCCULT BLOOD FIT X1 SCREEN Specimen Type: FECES No comment entered. Ordering Provider: SILVIA REDDY Report Released Date/Time: Aug 22, 2024 11:23 AM Reporting Lab: [address] [address] Performing Lab: [facility] [address] [facility] [address] OCCULT BLOOD (FIT) #1 OF 1 Negative Negative Aug 22, 2024 04:24 PM [facility] GLUCOSE,BLOOD-poct (STL) Specimen Type: BLOOD Comment: Test Performed by: [id number] Meter #: [id number] Ordering Provider: SILVIA REDDY Report Released Date/Time: Aug 22, 2024 04:36 PM Reporting Lab: [facility] [address] Performing Lab: [facility] #[address] [facility] [address] GLUCOSE,BLOOD- poct (STL) 176 mg/dL H -Aug 22, 2024 04:23 PM [facility] GLUCOSE,BLOOD-poct (STL) Specimen Type: BLOOD Comment: Test Performed by: [id number] Meter #: [id number] Ordering Provider: SILVIA REDDY Report Released Date/Time: Aug 22, 2024 04:36 PM Reporting Lab: [facility] [address] Performing Lab: [facility] [address] GLUCOSE,BLOOD- poct (STL) 221 mg/dL H 72-Aug 22, 2024 11:15 AM [facility] GLUCOSE,BLOOD-poct (STL) Specimen Type: BLOOD Comment: Test Performed by: [id number] Meter #: [id number] Ordering Provider: SILVIA REDDY Report Released Date/Time: Aug 22, 2024 11:27 AM Reporting Lab: [facility] [address] Performing Lab: [facility] [address] GLUCOSE,BLOOD- poct (STL) 140 mg/dL H 72-Aug 22, 2024 08:03 AM [facility] FERRITIN Specimen Type: SERUM No comment entered. Ordering Provider: JUDIT PERKINS Report Released Date/Time: Aug 18, 2024 11:01 AM Reporting Lab: [facility] [address] [facility] [address] Performing Lab: [facility] [address] [facility] [address] FERRITIN 79.50 ng/mL 22-275 Aug 22, 2024 08:03 AM [facility] B12 Specimen Type: SERUM No comment entered. Ordering Provider: JUDIT PERKINS Report Released Date/Time: Aug 18, 2024 11:01 AM Reporting Lab: [facility] [facility] [address] Performing Lab: [facility] [facility] [address] B12 631 pg/mL 213-816 Aug 22, 2024 08:03 AM [facility] IRON/TIBC PROFILE Specimen Type: SERUM No comment entered. Ordering Provider: JUDIT PERKINS Report Released Date/Time: Aug 18, 2024 11:01 AM Reporting Lab: [place] [address] [facility] [address] Performing Lab: [address] [address] TIBC 283 ug/dL 250-450 TRANSFERRIN 226 mg/dL 163-344 IRON SATURATION 7 L 20-50 IRON 19 ug/dL L 65-175 Aug 22, 2024 08:03 AM [facility] COMPREHENSIVE METABOLIC PANEL Specimen Type: PLASMA Comment: No hemolysis noted. Ordering Provider: SILVIA REDDY Report Released Date/Time: Aug 17, 2024 01:18 PM Reporting Lab: [facility] [address] [facility] [address] Performing Lab: [address] [address] CREATININE 0.80 mg/dL 0.7-1.3 UREA NITROGEN 9.7 [...] 94.0 >60 Aug 22, 2024 08:03 AM [facility] CBC Specimen Type: BLOOD No comment entered. Ordering Provider: SILVIA REDDY Report Released Date/Time: Aug 17, 2024 01:18 PM Reporting Lab: [facility] [address] Performing Lab: [facility] [address] WBC 3.5 10*3/uL L 3.6-11.2 RBC 3.23 [...] 0 Aug 22, 2024 05:03 AM [facility] GLUCOSE,BLOOD-poct (STL) Specimen Type: BLOOD Comment: Test Performed by: [id number] Meter #: [id number] Ordering Provider: SILVIA REDDY Report Released Date/Time: Aug 22, 2024 06:17 AM Reporting Lab: [facility] [facility] [address] Performing Lab: [facility] [address] [facility] [address] GLUCOSE,BLOOD- poct (STL) 170 mg/dL H 72-Aug 21, 2024 04:32 PM [facility] GLUCOSE,BLOOD-poct (STL) Specimen Type: BLOOD Comment: Test Performed by: [id number] Meter #: [id number] Ordering Provider: SILVIA REDDY Report Released Date/Time: Aug 21, 2024 04:49 PM Reporting Lab: [facility] [facility] [address] Performing Lab: [facility] [address] [facility] [address] GLUCOSE,BLOOD- poct (STL) 169 mg/dL H -99 Aug 21, 2024 11:53 AM [facility] GLUCOSE,BLOOD-poct (STL) Specimen Type: BLOOD Comment: Test Performed by: [id number] Meter #: [id number] Ordering Provider: SILVIA REDDY Report Released Date/Time: Aug 21, 2024 12:11 PM Reporting Lab: [facility] [facility] [address] Performing Lab: [facility] [address] GLUCOSE,BLOOD- poct (STL) 149 mg/dL H 72-99 Aug 21, 2024 05:10 AM [facility] GLUCOSE,BLOOD-poct (STL) Specimen Type: BLOOD Comment: Test Performed by: [id number] Meter #: [id number] Ordering Provider: SILVIA REDDY Report Released Date/Time: Aug 21, 2024 05:27 AM Reporting Lab: [facility] [place] [address] Performing Lab: [facility] [address] [place] [id number] GLUCOSE,BLOOD- poct (STL) 118 mg/dL H 72-99 Aug 20, 2024 04:38 PM [facility] GLUCOSE,BLOOD-poct (STL) Specimen Type: BLOOD Comment: Test Performed by: [id number] Meter #: [id number] Ordering Provider: SILVIA REDDY Report Released Date/Time: Aug 21, 2024 01:55 AM Reporting Lab: [facility] [address] [place] [address] Performing Lab: [facility] [address] [place] [address] GLUCOSE,BLOOD- poct (STL) 169 mg/dL H 72-Aug 20, 2024 04:36 PM [facility] GLUCOSE,BLOOD-poct (STL) Specimen Type: BLOOD Comment: Test Performed by: [id number] Meter #: [id number] Ordering Provider: SILVIA REDDY Report Released Date/Time: Aug 21, 2024 01:55 AM Reporting Lab: [facility] [place] [address] Performing Lab: [facility] [place] [address] GLUCOSE,BLOOD- poct (STL) 395 mg/dL H 72-99 Aug 20, 2024 11:45 AM [facility] GLUCOSE,BLOOD-poct (STL) Specimen Type: BLOOD Comment: Test Performed by: [id number] Meter #: [id number] Ordering Provider: SILVIA REDDY Report Released Date/Time: Aug 20, 2024 11:56 AM Reporting Lab: [facility] [address] Performing Lab: [facility] #[address] [facility] [address] GLUCOSE,BLOOD- poct (STL) 169 mg/dL H 72-Aug 20, 2024 05:06 AM [facility] GLUCOSE,BLOOD-poct (STL) Specimen Type: BLOOD Comment: Test Performed by: [id number] Meter #: [id number] Ordering Provider: SILVIA REDDY Report Released Date/Time: Aug 20, 2024 06:05 AM Reporting Lab: [facility] [facility] [address] Performing Lab: [facility] [facility] [address] GLUCOSE,BLOOD- poct (STL) 115 mg/dL H 72-Aug 19, 2024 04:23 PM [facility] GLUCOSE,BLOOD-poct (STL) Specimen Type: BLOOD Comment: Test Performed by: [id number] Meter #: [id number] Ordering Provider: SILVIA REDDY Report Released Date/Time: Aug 19, 2024 05:54 PM Reporting Lab: [facility] [facility] [address] Performing Lab: [facility] [facility] [address] GLUCOSE,BLOOD- poct (STL) 137 mg/dL H 72-99 Aug 19, 2024 11:28 AM [facility] GLUCOSE,BLOOD-poct (STL) Specimen Type: BLOOD Comment: Test Performed by: [id number] Meter #: [id number] Ordering Provider: SILVIA REDDY Report Released Date/Time: Aug 19, 2024 11:51 AM Reporting Lab: [facility] [facility] [address] Performing Lab: [facility] [facility] [address] GLUCOSE,BLOOD- poct (STL) 190 mg/dL H 72-99 Aug 19, 2024 05:21 AM [facility] GLUCOSE,BLOOD-poct (STL) Specimen Type: BLOOD Comment: Test Performed by: [id number] Meter #: [id number] Ordering Provider: SILVIA REDDY Report Released Date/Time: Aug 19, 2024 05:56 AM Reporting Lab: [facility] [facility] [address] Performing Lab: [facility] [facility] [address] GLUCOSE,BLOOD- poct (STL) 130 mg/dL H Aug 18, 2024 04:49 PM [facility] GLUCOSE,BLOOD-poct (STL) Specimen Type: BLOOD Comment: Test Performed by: [id number] Meter #: [id number] Ordering Provider: SILVIA REDDY Report Released Date/Time: Aug 18, 2024 05:01 PM Reporting Lab: [facility] [address] Performing Lab: [facility] [facility] [address] GLUCOSE,BLOOD- poct (STL) 129 mg/dL H Aug 18, 2024 11:23 AM [facility] GLUCOSE,BLOOD-poct (STL) Specimen Type: BLOOD Comment: Test Performed by: [id number] Meter #: [id number] Ordering Provider: SILVIA REDDY Report Released Date/Time: Aug 18, 2024 11:41 AM Reporting Lab: [facility] [facility] [address] Performing Lab: [facility] [facility] [address] GLUCOSE,BLOOD- poct (STL) 180 mg/dL H Aug 18, 2024 05:08 AM [facility] GLUCOSE,BLOOD-poct (STL) Specimen Type: BLOOD Comment: Test Performed by: [id number] Meter #: [id number] Ordering Provider: SILVIA REDDY Report Released Date/Time: Aug 18, 2024 05:31 AM Reporting Lab: [facility] [place] [address] Performing Lab: [facility] [facility] [address] GLUCOSE,BLOOD- poct (STL) 127 mg/dL H -Aug 17, 2024 07:32 PM [facility] GLUCOSE,BLOOD-poct (STL) Specimen Type: BLOOD Comment: Test Performed by: [id number] Meter #: [id number] Ordering Provider: SILVIA REDDY Report Released Date/Time: Aug 17, 2024 07:59 PM Reporting Lab: [facility] [place] [address] Performing Lab: [facility] [place] [address] GLUCOSE,BLOOD- poct (STL) 154 mg/dL H -Aug 17, 2024 04:24 PM [facility] GLUCOSE,BLOOD-poct (STL) Specimen Type: BLOOD Comment: Test Performed by: [id number] Meter #: [id number] Ordering Provider: SILVIA REDDY Report Released Date/Time: Aug 17, 2024 04:35 PM Reporting Lab: [facility] [place] [address] Performing Lab: [facility] [place] [address] GLUCOSE,BLOOD- poct (STL) 178 mg/dL H -Aug 17, 2024 05:09 AM [facility] GLUCOSE,BLOOD-poct (STL) Specimen Type: BLOOD Comment: Test Performed by: [id number] Meter #: [id number] Ordering Provider: SILVIA REDDY Report Released Date/Time: Aug 17, 2024 05:54 AM Reporting Lab: [facility] [address] Performing Lab: [facility] [facility] [address] GLUCOSE,BLOOD- poct (STL) 124 mg/dL H 72-Aug 16, 2024 07:40 PM [facility] GLUCOSE,BLOOD-poct (STL) Specimen Type: BLOOD Comment: Test Performed by: [id number] Meter #: [id number] Ordering Provider: SILVIA REDDY Report Released Date/Time: Aug 16, 2024 08:28 PM Reporting Lab: [facility] [address] Performing Lab: [facility] [facility] [address] GLUCOSE,BLOOD- poct (STL) 144 mg/dL H -Aug 16, 2024 04:19 PM [facility] GLUCOSE,BLOOD-poct (STL) Specimen Type: BLOOD Comment: Test Performed by: [id number] Meter #: [id number] Ordering Provider: SILVIA REDDY Report Released Date/Time: Aug 16, 2024 04:45 PM Reporting Lab: [facility] [facility] [address] Performing Lab: [facility] [facility] [address] GLUCOSE,BLOOD- poct (STL) 138 mg/dL H 72-Aug 16, 2024 11:52 AM [facility] GLUCOSE,BLOOD-poct (STL) Specimen Type: BLOOD Comment: Test Performed by: [id number] Meter #: [id number] Ordering Provider: SILVIA REDDY Report Released Date/Time: Aug 16, 2024 12:04 PM Reporting Lab: [facility] [address] Performing Lab: [facility] [facility] [address] GLUCOSE,BLOOD- poct (STL) 135 mg/dL H 72-99 Aug 16, 2024 05:24 AM [facility] GLUCOSE,BLOOD-poct (STL) Specimen Type: BLOOD Comment: Test Performed by: [id number] Meter #: [id number] Ordering Provider: SILVIA REDDY Report Released Date/Time: Aug 16, 2024 05:38 AM Reporting Lab: [facility] [address] Performing Lab: [facility] [facility] [address] GLUCOSE,BLOOD- poct (STL) 151 mg/dL H Aug 15, 2024 07:31 PM [facility] GLUCOSE,BLOOD-poct (STL) Specimen Type: BLOOD Comment: Test Performed by: [id number] Meter #: [id number] Ordering Provider: SILVIA RDEDY Report Released Date/Time: Aug 15, 2024 08:07 PM Reporting Lab: [facility] [address] Performing Lab: [facility] [address] GLUCOSE,BLOOD- poct (STL) 173 mg/dL H Aug 15, 2024 04:18 PM [facility] GLUCOSE,BLOOD-poct (STL) Specimen Type: BLOOD Comment: Test Performed by: [id number] Meter #: [id number] Ordering Provider: SILVIA REDDY Report Released Date/Time: Aug 15, 2024 04:59 PM Reporting Lab: [facility] [address] Performing Lab: [facility] [address] GLUCOSE,BLOOD- poct (STL) 136 mg/dL H Aug 15, 2024 04:16 PM [facility] GLUCOSE,BLOOD-poct (STL) Specimen Type: BLOOD Comment: Test Performed by: [id number] Meter #: [id number] Ordering Provider: SILVIA REDDY Report Released Date/Time: Aug 15, 2024 04:59 PM Reporting Lab: [facility] [place] [address] Performing Lab: [facility] [address] GLUCOSE,BLOOD- poct (STL) 194 mg/dL H 72-Aug 15, 2024 11:39 AM [facility] GLUCOSE,BLOOD-poct (STL) Specimen Type: BLOOD Comment: Test Performed by: [id number] Meter #: [id number] Ordering Provider: SILVIA REDDY Report Released Date/Time: Aug 15, 2024 12:00 PM Reporting Lab: [facility] [place] [address] Performing Lab: [facility] [place] [address] GLUCOSE,BLOOD- poct (STL) 127 mg/dL H -Aug 15, 2024 05:07 AM [facility] GLUCOSE,BLOOD-poct (STL) Specimen Type: BLOOD Comment: Test Performed by: [id number] Meter #: [id number] Ordering Provider: SILVIA REDDY Report Released Date/Time: Aug 15, 2024 06:14 AM Reporting Lab: [facility] [place] [address] Performing Lab: [facility] [place] [address] GLUCOSE,BLOOD- poct (STL) 151 mg/dL H -Aug 14, 2024 04:22 PM [facility] GLUCOSE,BLOOD-poct (STL) Specimen Type: BLOOD Comment: Test Performed by: [id number] Meter #: [id number] Ordering Provider: SILVIA REDDY Report Released Date/Time: Aug 14, 2024 04:52 PM Reporting Lab: [facility] [address] Performing Lab: [facility] [address] GLUCOSE,BLOOD- poct (STL) 129 mg/dL H 72-99 Aug 14, 2024 11:21 AM [facility] GLUCOSE,BLOOD-poct (STL) Specimen Type: BLOOD Comment: Test Performed by: [id number] Meter #: [id number] Ordering Provider: SILVIA REDDY Report Released Date/Time: Aug 14, 2024 11:37 AM Reporting Lab: [facility] [id number] Performing Lab: [facility] [id number] GLUCOSE,BLOOD- poct (STL) 135 mg/dL H 72-Aug 14, 2024 06:59 AM [facility] QUANTIFERON-TB,4 TUBE Specimen Type: BLOOD [...] For additional information, please refer to http://education. [employer]Tree/faq/QUU807 (This link is being provided for information/ educational purposes only.) Test Performed by [employer], Exclusively.in [facility], [address] [place] [address] Tommie Garcia M.D., Ph.D., Director of Laboratories , [facility] [id number] Ordering Provider: SILVIA REDDY Report Released Date/Time: Aug 11, 2024 03:58 PM Reporting Lab: [facility] [address] [facility] [id number] Performing Lab: [facility] [id number] [place] [address] .NIL - QUANTIFERON 0.04 [IU]/mL .MITOGEN-NIL 0.39 [IU]/mL .QUANTIFERON INDETERMINATE NEGATIVE .TB1-NIL <0.00 [IU]/mL .TB2-NIL <0.00 [IU]/mL Aug 14, 2024 06:59 AM [facility] MAGNESIUM Specimen Type: PLASMA Comment: No hemolysis noted. Ordering Provider: SILVIA REDDY Report Released Date/Time: Aug 11, 2024 03:58 PM Reporting Lab: [facility] [place] [phone] Performing Lab: [facility] [id number] MAGNESIUM 1.9 mg/dL 1.6-2.6 Aug 14, 2024 06:59 AM [facility] B12 Specimen Type: SERUM No comment entered. Ordering Provider: SILVIA REDDY Report Released Date/Time: Aug 11, 2024 03:58 PM Reporting Lab: [facility] [id number] Performing Lab: [facility] [id number] B12 757 pg/mL 213-816 Aug 14, 2024 06:59 AM [facility] FOLATE (STL-MA) Specimen Type: SERUM No comment entered. Ordering Provider: SILVIA REDDY Report Released Date/Time: Aug 11, 2024 03:58 PM Reporting Lab: [facility] [id number] Performing Lab: [facility] [facility] [address] FOLATE (STL-MA) 6.8 ng/mL L 7-20 Aug 14, 2024 06:59 AM [facility] VITAMIN D, 25-HYDROXY Specimen Type: SERUM No comment entered. Ordering Provider: SILVIA REDDY Report Released Date/Time: Aug 11, 2024 03:58 PM Reporting Lab: [facility] [address] Performing Lab: [facility] [address] VITAMIN D, 25-HYDROXY 8.9 ng/mL L 30-96 Aug 14, 2024 06:59 AM [facility] CBC Specimen Type: BLOOD No comment entered. Ordering Provider: SILVIA REDDY Report Released Date/Time: Aug 11, 2024 03:58 PM Reporting Lab: [facility] [address] Performing Lab: [facility] [address] WBC 4.1 10*3/uL 3.6-11.2 RBC 3.20 10*6/uL [...] 10*3/uL 0.00-0.20 Aug 14, 2024 06:59 AM [facility] COMPREHENSIVE METABOLIC PANEL Specimen Type: PLASMA Comment: No hemolysis noted. Ordering Provider: SILVIA REDDY Report Released Date/Time: Aug 11, 2024 03:58 PM Reporting Lab: [facility] [address] Performing Lab: [facility] [place] [phone] CREATININE 0.75 mg/dL 0.70-1.30 UREA NITROGEN 13.6 [...] 95.88 >60 Aug 14, 2024 05:08 AM [facility] GLUCOSE,BLOOD-poct (STL) Specimen Type: BLOOD Comment: Test Performed by: [id number] Meter #: [id number] Ordering Provider: SILVIA REDDY Report Released Date/Time: Aug 14, 2024 05:52 AM Reporting Lab: [facility] [address] Performing Lab: [facility] [address] GLUCOSE,BLOOD- poct (STL) 135 mg/dL H 72-99 Aug 13, 2024 04:27 PM [facility] GLUCOSE,BLOOD-poct (STL) Specimen Type: BLOOD Comment: Test Performed by: [id number] Meter #: [id number] Ordering Provider: SILVIA REDDY Report Released Date/Time: Aug 13, 2024 04:41 PM Reporting Lab: [facility] [address] Performing Lab: [facility] [address] GLUCOSE,BLOOD- poct (STL) 181 mg/dL H -Aug 13, 2024 11:33 AM [facility] GLUCOSE,BLOOD-poct (STL) Specimen Type: BLOOD Comment: Test Performed by: [id number] Meter #: [id number] Ordering Provider: SILVIA REDDY Report Released Date/Time: Aug 13, 2024 03:55 PM Reporting Lab: [facility] [address] Performing Lab: [facility] [place] [address] GLUCOSE,BLOOD- poct (STL) 140 mg/dL H Aug 13, 2024 05:54 AM [facility] GLUCOSE,BLOOD-poct (STL) Specimen Type: BLOOD Comment: Test Performed by: [id number] Meter #: [id number] Ordering Provider: SILVIA REDDY Report Released Date/Time: Aug 13, 2024 06:20 AM Reporting Lab: [facility] [address] Performing Lab: [facility] [address] GLUCOSE,BLOOD- poct (STL) 112 mg/dL H Aug 12, 2024 04:35 PM [facility] GLUCOSE,BLOOD-poct (STL) Specimen Type: BLOOD Comment: Test Performed by: [id number] Meter #: [id number] Ordering Provider: SILVIA REDDY Report Released Date/Time: Aug 12, 2024 04:47 PM Reporting Lab: [facility] [address] Performing Lab: [facility]1 [facility] [address] GLUCOSE,BLOOD- poct (STL) 128 mg/dL H 72-99 Aug 12, 2024 11:26 AM [facility] GLUCOSE,BLOOD-poct (STL) Specimen Type: BLOOD Comment: Test Performed by: [id number] Meter #: [id number] Ordering Provider: SILVIA REDDY Report Released Date/Time: Aug 12, 2024 11:45 AM Reporting Lab: [facility] [address] Performing Lab: [facility]1 [place] [address] GLUCOSE,BLOOD- poct (STL) 188 mg/dL H -Aug 12, 2024 06:13 AM [facility] GLUCOSE,BLOOD-poct (STL) Specimen Type: BLOOD Comment: Test Performed by: [id number] Meter #: [id number] Ordering Provider: SILVIA REDDY Report Released Date/Time: Aug 12, 2024 06:25 AM Reporting Lab: [facility] [address] Performing Lab: [facility]1 [facility] [address] GLUCOSE,BLOOD- poct (STL) 116 mg/dL H 72-99 Aug 11, 2024 04:10 PM [facility] GLUCOSE,BLOOD-poct (STL) Specimen Type: BLOOD Comment: Test Performed by: [id number] Meter #: [id number] Ordering Provider: SILVIA REDDY Report Released Date/Time: Aug 11, 2024 04:27 PM Reporting Lab: [facility] [place] [address] Performing Lab: [facility] [address] GLUCOSE,BLOOD- poct (STL) 184 mg/dL H 72-99 Aug 11, 2024 01:44 PM [facility] MRSA SURVL NARES DNA Specimen [...] Aug 11, 2024 02:03 PM Reporting Lab: [address] [address] Performing Lab: [address] [address] MRSA SURVL NARES DNA Negative Negative Jul 20, 2024 11:18 AM [facility] APTT Specimen Type: PLASMA No comment entered. Ordering Provider: MANUEL BAIRD Report Released Date/Time: Jul 19, 2024 04:00 PM Reporting Lab: [address] [address] Performing Lab: [address] [address] APTT 32.1 s 26.7-39.9 Jul 20, 2024 11:18 AM [facility] PT/INR NEW (L-VA) Specimen Type: PLASMA No comment entered. Ordering Provider: MANUEL BAIRD Report Released Date/Time: Jul 19, 2024 04:00 PM Reporting Lab: [address] [address] Performing Lab: [address] [address] PROTIME 14.4 s H 9.4-12.5 INR VALUE 1.3 {INR} Jul 20, 2024 11:18 AM [facility] CBC Specimen Type: BLOOD No comment entered. Ordering Provider: MANUEL BAIRD Report Released Date/Time: Jul 19, 2024 04:00 PM Reporting Lab: [facility] [address] [facility] [address] Performing Lab: [address] [address] WBC 4.7 10*3/uL 3.6-11.2 RBC 4.86 10*6/uL [...] 07, 2024 01:43 PM Reporting Lab: [facility] [address] [place] [address] Performing Lab: [address] [address] CREATININE 0.85 mg/dL 0.7-1.3 UREA NITROGEN 15.2 [...] 07:46 PM 97.6 86 138/77 20 97 [facility] N Aug 13, 2024 12:24 PM 0 [facility] N Aug 13, 2024 10:48 AM 98 73 125/71 18 96 211.9 30 [facility] N Aug 13, 2024 06:16 AM 97.6 73 103/63 18 94 [facility] N Advance Directives: All historical [...] 19, 2017 ADVANCE DIRECTIVE DISCUSSION ERICK BARDALES [facility]
--- OUTSIDE RECORDS SUMMARY | 2024-11-17 04:04 | XMS_ITS ---
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 Date/Time Encounter Type Encounter Description Reason Provider Source Aug 14, 2024 09:30 AM [facility] ASSMT/REASSESS [facility] RECREATION THERAPY SERVICE ICD-10-CM I25.810 Atherosclerosis of CABG w/o angina pectoris KAYLIE ALTAMIRANO Encounter Template Text not used by [place] Assessments - Encounter Diagnoses This section includes the primary and secondary diagnoses documented for the Encounter. Date/Time Primary/Secondary Diagnosis Diagnosis Name Provider Source Aug 14, 2024 10:41 AM PRIMARY Atherosclerosis of CABG w/o angina pectoris KAYLIE ALTAMIRANO [facility] Plan of Treatment: Future Appointments (+ 6 months) and Future Tests (+/- 45 days) The Plan of Treatment section includes future care activities for the patient [facility] [place] [facility] This section includes future appointments and future orders which are active, pending or scheduled. Future Appointments This section includes appointments that were scheduled to occur 6 months from the date of the Encounter, up to a maximum of 20 appointments. The data comes from all [facility]. Appointment Date/Time Appointment Type Appointme nt Facility Name Aug 24, 2024 10:00 AM AMBULATORY - MEDICINE [facility] Aug 24, 2024 10:30 AM AMBULATORY - MEDICINE [facility] Aug 30, 2024 09:30 AM AMBULATORY MEDICINE [facility] Aug 31, 2024 01:00 PM AMBULATORY - SURGERY [facility] Sep 21, 2024 01:30 PM AMBULATORY - MEDICINE [facility] Sep 22, 2024 11:00 AM AMBULATORY - MEDICINE [facility] Sep 29, 2024 12:30 PM AMBULATORY - MEDICINE [facility] Oct 02, 2024 09:30 AM AMBULATORY - MEDICINE [facility] Nov 20, 2024 10:30 AM AMBULATORY - SURGERY [facility] Nov 21, 2024 10:00 AM AMBULATORY - NONE [facility] Dec 11, 2024 10:30 AM AMBULATORY - MEDICINE [facility] Active, Pending, and Scheduled Orders This section includes a listing of several types of active, pending, and scheduled orders, including clinic medications orders, diagnostic test orders, procedure orders and consult orders; where the start date of the order is 45 days before the date of the Encounter or 45 days after the date of theEncounter. The data comes from all [facility]. Test Date/Time Test Type Test Details Facility Name Aug 02, 2024 12:00 AM Laboratory - Chemistry Order CBC BLOOD STAT SP [facility] Aug 02, 2024 12:00 AM Laboratory - Chemistry Order COMPREHENSIVE METABOLIC PANEL GREEN LI/HEP BLD/PLAS PLASMA SP [facility] Aug 17, 2024 03:47 PM Consult Order [facility] Cons Bedside [facility] Lab Results: +/- 30 days [...] Range Comment Aug 23, 2024 08:21 AM [facility] MAGNESIUM Specimen Type: PLASMA No comment entered. Ordering Provider: SILVIA REDDY Report Released Date/Time: Aug 22, 2024 11:26 AM Reporting Lab: [facility]1 [facility] [address] Performing Lab: [facility] #1 [facility] [address] MAGNESIUM 1.8 mg/dL 1.6-2.6 Aug 23, 2024 08:21 AM [facility] CBC Specimen Type: BLOOD No comment entered. Ordering Provider: SILVIA REDDY Report Released Date/Time: Aug 22, 2024 11:19 AM Reporting Lab: [facility] #1 [facility] [address] Performing Lab: [facility] #1 [facility] [address] WBC 4.0 10*3/uL 3.6-11.2 RBC 3.65 10*6/uL [...] 10*3/uL 0.00-0.20 Aug 23, 2024 05:12 AM [facility] GLUCOSE,BLOOD-poct (STL) Specimen Type: BLOOD Comment: Test Performed by: [id number] Meter #: [id number] Ordering Provider: SILVIA REDDY Report Released Date/Time: Aug 23, 2024 05:23 AM Reporting Lab: [facility] [address] Performing Lab: [facility] [address] GLUCOSE,BLOOD- poct (STL) 99 mg/dL 72-99 Aug 23, 2024 02:45 AM [facility] OCCULT BLOOD FIT X1 SCREEN Specimen Type: FECES No comment entered. Ordering Provider: SILVIA REDDY Report Released Date/Time: Aug 22, 2024 11:23 AM Reporting Lab: [address] [address] Performing Lab: [address] [address] OCCULT BLOOD (FIT) #1 OF 1 Negative Negative Aug 22, 2024 07:30 PM [facility] OCCULT BLOOD FIT X1 SCREEN Specimen Type: FECES No comment entered. Ordering Provider: SILVIA REDDY Report Released Date/Time: Aug 22, 2024 11:23 AM Reporting Lab: [address] [address] Performing Lab: [address] [address] OCCULT BLOOD (FIT) #1 OF 1 Negative Negative Aug 22, 2024 06:15 PM [facility] OCCULT BLOOD FIT X1 SCREEN Specimen Type: FECES No comment entered. Ordering Provider: SILVIA REDDY Report Released Date/Time: Aug 22, 2024 11:23 AM Reporting Lab: [facility] [address] [place] [address] Performing Lab: [address] [address] OCCULT BLOOD (FIT) #1 OF 1 Negative Negative Aug 22, 2024 04:24 PM [facility] GLUCOSE,BLOOD-poct (STL) Specimen Type: BLOOD Comment: Test Performed by: [id number] Meter #: [id number] Ordering Provider: SILVIA REDDY Report Released Date/Time: Aug 22, 2024 04:36 PM Reporting Lab: [facility]1 [facility] [address] Performing Lab: [facility] #1 [facility] [address] GLUCOSE,BLOOD- poct (STL) 176 mg/dL H 72-99 Aug 22, 2024 04:23 PM [facility] GLUCOSE,BLOOD-poct (STL) Specimen Type: BLOOD Comment: Test Performed by: [id number] Meter #: [id number] Ordering Provider: SILVIA REDDY Report Released Date/Time: Aug 22, 2024 04:36 PM Reporting Lab: [facility] #1 [facility] [address] Performing Lab: [facility] #1 [facility] [address] GLUCOSE,BLOOD- poct (STL) 221 mg/dL H 72-99 Aug 22, 2024 11:15 AM [facility] GLUCOSE,BLOOD-poct (STL) Specimen Type: BLOOD Comment: Test Performed by: [id number] Meter #: [id number] Ordering Provider: SILVIA REDDY Report Released Date/Time: Aug 22, 2024 11:27 AM Reporting Lab: [facility] #1 [facility] [address] Performing Lab: [facility] #1 [facility] [address] GLUCOSE,BLOOD- poct (STL) 140 mg/dL H 72-99 Aug 22, 2024 08:03 AM [facility] FERRITIN Specimen Type: SERUM No comment entered. Ordering Provider: JUDIT PERKINS Report Released Date/Time: Aug 18, 2024 11:01 AM Reporting Lab: [facility] [address] [facility] [address] Performing Lab: [address] [address] FERRITIN 79.50 ng/mL 22-275 Aug 22, 2024 08:03 AM [facility] IRON/TIBC PROFILE Specimen Type: SERUM No comment entered. Ordering Provider: JUDIT PERKINS Report Released Date/Time: Aug 18, 2024 11:01 AM Reporting Lab: [facility] [address] [facility] [address] Performing Lab: [facility] [address] [facility] [address] TIBC 283 ug/dL 250-450 TRANSFERRIN 226 mg/dL 163-344 IRON SATURATION 7 L 20-50 IRON 19 ug/dL L 65-175 Aug 22, 2024 08:03 AM [facility] B12 Specimen Type: SERUM No comment entered. Ordering Provider: JUDIT PERKINS Report Released Date/Time: Aug 18, 2024 11:01 AM Reporting Lab: [facility] #1 [facility] [address] Performing Lab: [facility] #1 [facility] [address] B12 631 pg/mL 213-816 Aug 22, 2024 08:03 AM [facility] COMPREHENSIVE METABOLIC PANEL Specimen Type: PLASMA Comment: No hemolysis noted. Ordering Provider: SILVIA REDDY Report Released Date/Time: Aug 17, 2024 01:18 PM Reporting Lab: [facility] [address] [facility] [address] Performing Lab: [facility] [address] [place] [address] CREATININE 0.80 mg/dL 0.7-1.3 UREA NITROGEN 9.7 [...] 94.0 >60 Aug 22, 2024 08:03 AM [facility] CBC Specimen Type: BLOOD No comment entered. Ordering Provider: SILVIA REDDY Report Released Date/Time: Aug 17, 2024 01:18 PM Reporting Lab: [facility] #1 [facility] [address] Performing Lab: [facility] #1 [facility] [address] WBC 3.5 10*3/uL L 3.6-11.2 RBC 3.23 [...] NRBC% 0 Aug 22, 2024 05:03 AM [facility] GLUCOSE,BLOOD-poct (STL) Specimen Type: BLOOD Comment: Test Performed by: [id number] Meter #: [id number] Ordering Provider: SILVIA REDDY Report Released Date/Time: Aug 22, 2024 06:17 AM Reporting Lab: [facility] [address] [place] [address] Performing Lab: [facility] [place] [address] GLUCOSE,BLOOD- poct (STL) 170 mg/dL H 72-99 Aug 21, 2024 04:32 PM [facility] GLUCOSE,BLOOD-poct (STL) Specimen Type: BLOOD Comment: Test Performed by: [id number] Meter #: [id number] Ordering Provider: SILVIA REDDY Report Released Date/Time: Aug 21, 2024 04:49 PM Reporting Lab: [facility] [place] [address] Performing Lab: [facility] [place] [address] GLUCOSE,BLOOD- poct (STL) 169 mg/dL H 72-99 Aug 21, 2024 11:53 AM [facility] GLUCOSE,BLOOD-poct (STL) Specimen Type: BLOOD Comment: Test Performed by: [id number] Meter #: [id number] Ordering Provider: SILVIA REDDY Report Released Date/Time: Aug 21, 2024 12:11 PM Reporting Lab: [facility] [place] [address] Performing Lab: [facility] #1 [facility] [address] GLUCOSE,BLOOD- poct (STL) 149 mg/dL H -Aug 21, 2024 05:10 AM [facility] GLUCOSE,BLOOD-poct (STL) Specimen Type: BLOOD Comment: Test Performed by: [id number] Meter #: [id number] Ordering Provider: SILVIA REDDY Report Released Date/Time: Aug 21, 2024 05:27 AM Reporting Lab: [facility] #1 [facility] [address] Performing Lab: [facility] #1 [facility] [address] GLUCOSE,BLOOD- poct (STL) 118 mg/dL H -Aug 20, 2024 04:38 PM [facility] GLUCOSE,BLOOD-poct (STL) Specimen Type: BLOOD Comment: Test Performed by: [id number] Meter #: [id number] Ordering Provider: SILVIA REDDY Report Released Date/Time: Aug 21, 2024 01:55 AM Reporting Lab: [facility]1 [facility] [address] Performing Lab: [facility] #1 [facility] [address] GLUCOSE,BLOOD- poct (STL) 169 mg/dL H -Aug 20, 2024 04:36 PM [facility] GLUCOSE,BLOOD-poct (STL) Specimen Type: BLOOD Comment: Test Performed by: [id number] Meter #: [id number] Ordering Provider: SILVIA REDDY Report Released Date/Time: Aug 21, 2024 01:55 AM Reporting Lab: [facility] #1 [facility] [address] Performing Lab: [facility] #1 [facility] [address] GLUCOSE,BLOOD- poct (STL) 395 mg/dL H 72-Aug 20, 2024 11:45 AM [facility] GLUCOSE,BLOOD-poct (STL) Specimen Type: BLOOD Comment: Test Performed by: [id number] Meter #: [id number] Ordering Provider: SILVIA REDDY Report Released Date/Time: Aug 20, 2024 11:56 AM Reporting Lab: [facility]1 [facility] [address] Performing Lab: [facility] [address] GLUCOSE,BLOOD- poct (STL) 169 mg/dL H Aug 20, 2024 05:06 AM [facility] GLUCOSE,BLOOD-poct (STL) Specimen Type: BLOOD Comment: Test Performed by: [id number] Meter #: [id number] Ordering Provider: SILVIA REDDY Report Released Date/Time: Aug 20, 2024 06:05 AM Reporting Lab: [facility] #1 [facility] [address] Performing Lab: [facility] [address] GLUCOSE,BLOOD- poct (STL) 115 mg/dL H Aug 19, 2024 04:23 PM [facility] GLUCOSE,BLOOD-poct (STL) Specimen Type: BLOOD Comment: Test Performed by: [id number] Meter #: [id number] Ordering Provider: SILVIA REDDY Report Released Date/Time: Aug 19, 2024 05:54 PM Reporting Lab: [facility] #1 [facility] [address] Performing Lab: [facility] #1 [facility] [address] GLUCOSE,BLOOD- poct (STL) 137 mg/dL H Aug 19, 2024 11:28 AM [facility] GLUCOSE,BLOOD-poct (STL) Specimen Type: BLOOD Comment: Test Performed by: [id number] Meter #: [id number] Ordering Provider: SILVIA REDDY Report Released Date/Time: Aug 19, 2024 11:51 AM Reporting Lab: [facility] #[address] [place] [address] Performing Lab: [facility] #[address] [place] [address] GLUCOSE,BLOOD- poct (STL) 190 mg/dL H -Aug 19, 2024 05:21 AM [facility] GLUCOSE,BLOOD-poct (STL) Specimen Type: BLOOD Comment: Test Performed by: [id number] Meter #: [id number] Ordering Provider: SILVIA REDDY Report Released Date/Time: Aug 19, 2024 05:56 AM Reporting Lab: [facility] #[address] [place] [address] Performing Lab: [facility] #[address] [place] [address] GLUCOSE,BLOOD- poct (STL) 130 mg/dL H -Aug 18, 2024 04:49 PM [facility] GLUCOSE,BLOOD-poct (STL) Specimen Type: BLOOD Comment: Test Performed by: [id number] Meter #: [id number] Ordering Provider: SILVIA REDDY Report Released Date/Time: Aug 18, 2024 05:01 PM Reporting Lab: [facility] [place] [address] Performing Lab: [facility] #[address] [place] [address] GLUCOSE,BLOOD- poct (STL) 129 mg/dL H 72-Aug 18, 2024 11:23 AM [facility] GLUCOSE,BLOOD-poct (STL) Specimen Type: BLOOD Comment: Test Performed by: [id number] Meter #: [id number] Ordering Provider: SILVIA REDDY Report Released Date/Time: Aug 18, 2024 11:41 AM Reporting Lab: [facility] [place] [address] Performing Lab: [facility] #1 [facility] [address] GLUCOSE,BLOOD- poct (STL) 180 mg/dL H Aug 18, 2024 05:08 AM [facility] GLUCOSE,BLOOD-poct (STL) Specimen Type: BLOOD Comment: Test Performed by: [id number] Meter #: [id number] Ordering Provider: SILVIA REDDY Report Released Date/Time: Aug 18, 2024 05:31 AM Reporting Lab: [facility]1 [facility] [address] Performing Lab: [facility] #1 [facility] [address] GLUCOSE,BLOOD- poct (STL) 127 mg/dL H Aug 17, 2024 07:32 PM [facility] GLUCOSE,BLOOD-poct (STL) Specimen Type: BLOOD Comment: Test Performed by: [id number] Meter #: [id number] Ordering Provider: SILVIA REDDY Report Released Date/Time: Aug 17, 2024 07:59 PM Reporting Lab: [facility] #1 [facility] [address] Performing Lab: [facility] #1 [facility] [address] GLUCOSE,BLOOD- poct (STL) 154 mg/dL H Aug 17, 2024 04:24 PM [facility] GLUCOSE,BLOOD-poct (STL) Specimen Type: BLOOD Comment: Test Performed by: [id number] Meter #: [id number] Ordering Provider: SILVIA REDDY Report Released Date/Time: Aug 17, 2024 04:35 PM Reporting Lab: [facility]1 [facility] [address] Performing Lab: [facility] #1 [facility] [address] GLUCOSE,BLOOD- poct (STL) 178 mg/dL H Aug 17, 2024 05:09 AM [facility] GLUCOSE,BLOOD-poct (STL) Specimen Type: BLOOD Comment: Test Performed by: [id number] Meter #: [id number] Ordering Provider: SILVIA REDDY Report Released Date/Time: Aug 17, 2024 05:54 AM Reporting Lab: [facility] #1 [facility] [address] Performing Lab[facility] [address] GLUCOSE,BLOOD- poct (STL) 124 mg/dL H Aug 16, 2024 07:40 PM [facility] GLUCOSE,BLOOD-poct (STL) Specimen Type: BLOOD Comment: Test Performed by: [id number] Meter #: [id number] Ordering Provider: SILVIA REDDY Report Released Date/Time: Aug 16, 2024 08:28 PM Reporting Lab: [facility] #1 [facility] [address] Performing Lab: [facility] [address] GLUCOSE,BLOOD- poct (STL) 144 mg/dL H Aug 16, 2024 04:19 PM [facility] GLUCOSE,BLOOD-poct (STL) Specimen Type: BLOOD Comment: Test Performed by: [id number] Meter #: [id number] Ordering Provider: SILVIA REDDY Report Released Date/Time: Aug 16, 2024 04:45 PM Reporting Lab: [facility] #1 [facility] [address] Performing Lab: [facility] #1 [facility] [address] GLUCOSE,BLOOD- poct (STL) 138 mg/dL H Aug 16, 2024 11:52 AM [facility] GLUCOSE,BLOOD-poct (STL) Specimen Type: BLOOD Comment: Test Performed by: [id number] Meter #: [id number] Ordering Provider: SILVIA REDDY Report Released Date/Time: Aug 16, 2024 12:04 PM Reporting Lab: [facility] #[address] [place] [id number] Performing Lab: [facility]1 [facility] [address] GLUCOSE,BLOOD- poct (STL) 135 mg/dL H -Aug 16, 2024 05:24 AM [facility] GLUCOSE,BLOOD-poct (STL) Specimen Type: BLOOD Comment: Test Performed by: [id number] Meter #: [id number] Ordering Provider: SILVIA REDDY Report Released Date/Time: Aug 16, 2024 05:38 AM Reporting Lab: [facility] #1 [facility] [address] Performing Lab: [facility] [place] [address] GLUCOSE,BLOOD- poct (STL) 151 mg/dL H Aug 15, 2024 07:31 PM [facility] GLUCOSE,BLOOD-poct (STL) Specimen Type: BLOOD Comment: Test Performed by: [id number] Meter #: [id number] Ordering Provider: SILVIA REDDY Report Released Date/Time: Aug 15, 2024 08:07 PM Reporting Lab: [facility] #[address] [place] [id number] Performing Lab: [facility] [place] [address] GLUCOSE,BLOOD- poct (STL) 173 mg/dL H Aug 15, 2024 04:18 PM [facility] GLUCOSE,BLOOD-poct (STL) Specimen Type: BLOOD Comment: Test Performed by: [id number] Meter #: [id number] Ordering Provider: SILVIA REDDY Report Released Date/Time: Aug 15, 2024 04:59 PM Reporting Lab: [facility] [place] [address] Performing Lab: [facility] [address] GLUCOSE,BLOOD- poct (STL) 136 mg/dL H Aug 15, 2024 04:16 PM [facility] GLUCOSE,BLOOD-poct (STL) Specimen Type: BLOOD Comment: Test Performed by: [id number] Meter #: [id number] Ordering Provider: SILVIA REDDY Report Released Date/Time: Aug 15, 2024 04:59 PM Reporting Lab: [facility] [address] Performing Lab: [facility] [address] GLUCOSE,BLOOD- poct (STL) 194 mg/dL H Aug 15, 2024 11:39 AM [facility] GLUCOSE,BLOOD-poct (STL) Specimen Type: BLOOD Comment: Test Performed by: [id number] Meter #: [id number] Ordering Provider: SILVIA REDDY Report Released Date/Time: Aug 15, 2024 12:00 PM Reporting Lab: [facility] [address] Performing Lab: [facility] [address] GLUCOSE,BLOOD- poct (STL) 127 mg/dL H Aug 15, 2024 05:07 AM [facility] GLUCOSE,BLOOD-poct (STL) Specimen Type: BLOOD Comment: Test Performed by: [id number] Meter #: [id number] Ordering Provider: SILVIA REDDY Report Released Date/Time: Aug 15, 2024 06:14 AM Reporting Lab: [facility] [address] Performing Lab: [facility] [address] GLUCOSE,BLOOD- poct (STL) 151 mg/dL H Aug 14, 2024 04:22 PM [facility] GLUCOSE,BLOOD-poct (STL) Specimen Type: BLOOD Comment: Test Performed by: [id number] Meter #: [id number] Ordering Provider: SILVIA REDDY Report Released Date/Time: Aug 14, 2024 04:52 PM Reporting Lab: [facility]1 [facility] [address] Performing Lab: [facility]1 [facility] [address] GLUCOSE,BLOOD- poct (STL) 129 mg/dL H Aug 14, 2024 11:21 AM [facility] GLUCOSE,BLOOD-poct (STL) Specimen Type: BLOOD Comment: Test Performed by: [id number] Meter #: [id number] Ordering Provider: SILVIA REDDY Report Released Date/Time: Aug 14, 2024 11:37 AM Reporting Lab: [facility] [address] Performing Lab: [facility]1 [facility] [address] GLUCOSE,BLOOD- poct (STL) 135 mg/dL H Aug 14, 2024 06:59 AM [facility] QUANTIFERON-TB,4 TUBE Specimen Type: BLOOD Comment: [...] For additional information, please refer to [email or web address] (This link is being provided for information/ educational purposes only.) Test Performed by [facility], [address] [place], [place] Tommie Garcia M.D., Ph.D., Director of Laboratories , [facility] [id number] Ordering Provider: SILVIA REDDY Report Released Date/Time: Aug 11, 2024 03:58 PM Reporting Lab: [facility] [address] [facility] [address] Performing Lab: [facility] [address] [facility] .NIL - QUANTIFERON 0.04 [IU]/mL .MITOGEN-NIL 0.39 [IU]/mL .QUANTIFERON INDETERMINATE NEGATIVE .TB1-NIL <0.00 [IU]/mL .TB2-NIL <0.00 [IU]/mL Aug 14, 2024 06:59 AM [facility] MAGNESIUM Specimen Type: PLASMA Comment: No hemolysis noted. Ordering Provider: SILVIA REDDY Report Released Date/Time: Aug 11, 2024 03:58 PM Reporting Lab: [facility] #[address] [facility] [address] Performing Lab: [facility] #1 [facility] [address] MAGNESIUM 1.9 mg/dL 1.6-2.6 Aug 14, 2024 06:59 AM [facility] B12 Specimen Type: SERUM No comment entered. Ordering Provider: ISLVIA REDDY Report Released Date/Time: Aug 11, 2024 03:58 PM Reporting Lab: [facility]1 [facility] [address] Performing Lab: [facility] #1 [facility] [address] B12 757 pg/mL 213-816 Aug 14, 2024 06:59 AM [facility] VITAMIN D, 25-HYDROXY Specimen Type: SERUM No comment entered. Ordering Provider: SILVIA REDDY Report Released Date/Time: Aug 11, 2024 03:58 PM Reporting Lab: [facility] #1 [place] [address] Performing Lab: [facility] #1 [place] [id number] VITAMIN D, 25-HYDROXY 8.9 ng/mL L 30-96 Aug 14, 2024 06:59 AM [facility] FOLATE ([facility] [[email or web address]MA) Specimen Type: SERUM No comment entered. Ordering Provider: SILVIA REDDY Report Released Date/Time: Aug 11, 2024 03:58 PM Reporting Lab: [facility] #1 [place] [address] Performing Lab: [facility] #1 [place] [phone] FOLATE (L-MA) 6.8 ng/mL L 7-20 Aug 14, 2024 06:59 AM [facility] CBC Specimen Type: BLOOD No comment entered. Ordering Provider: SILVIA REDDY Report Released Date/Time: Aug 11, 2024 03:58 PM Reporting Lab: [facility] #1 [place] [phone] Performing Lab: [facility] #1 [place] [id number] WBC 4.1 10*3/uL 3.6-11.2 RBC 3.20 10*6/uL [...] 10*3/uL 0.00-0.20 Aug 14, 2024 06:59 AM [facility] COMPREHENSIVE METABOLIC PANEL Specimen Type: PLASMA Comment: No hemolysis noted. Ordering Provider: SILVIA REDDY Report Released Date/Time: Aug 11, 2024 03:58 PM Reporting Lab: [facility]1 [facility] [address] Performing Lab: [facility] [address]1 [place] [phone] CREATININE 0.75 mg/dL 0.70-1.30 UREA NITROGEN 13.6 [...] 95.88 >60 Aug 14, 2024 05:08 AM [facility] GLUCOSE,BLOOD-poct (STL) Specimen Type: BLOOD Comment: Test Performed by: [id number] Meter #: [id number] Ordering Provider: SILVIA REDDY Report Released Date/Time: Aug 14, 2024 05:52 AM Reporting Lab: [facility]1 [facility] [address] Performing Lab: [facility] #1 [place] [address] GLUCOSE,BLOOD- poct (STL) 135 mg/dL H Aug 13, 2024 04:27 PM [facility] GLUCOSE,BLOOD-poct (STL) Specimen Type: BLOOD Comment: Test Performed by: [id number] Meter #: [id number] Ordering Provider: SILVIA REDDY Report Released Date/Time: Aug 13, 2024 04:41 PM Reporting Lab: [facility] [place] [address] Performing Lab: [facility] [address]1 [place] [address] GLUCOSE,BLOOD- poct (STL) 181 mg/dL H Aug 13, 2024 11:33 AM [facility] GLUCOSE,BLOOD-poct (STL) Specimen Type: BLOOD Comment: Test Performed by: [id number] Meter #: [id number] Ordering Provider: SILVIA REDDY Report Released Date/Time: Aug 13, 2024 03:55 PM Reporting Lab: [facility]1 [place] [address] Performing Lab: [facility] [address]1 [place] [address] GLUCOSE,BLOOD- poct (STL) 140 mg/dL H Aug 13, 2024 05:54 AM [facility] GLUCOSE,BLOOD-poct (STL) Specimen Type: BLOOD Comment: Test Performed by: [id number] Meter #: [id number] Ordering Provider: SILVIA REDDY Report Released Date/Time: Aug 13, 2024 06:20 AM Reporting Lab: [facility]1 [place] [address] Performing Lab: [facility]1 [place] [address] GLUCOSE,BLOOD- poct (STL) 112 mg/dL H 72-Aug 12, 2024 04:35 PM [facility] GLUCOSE,BLOOD-poct (STL) Specimen Type: BLOOD Comment: Test Performed by: [id number] Meter #: [id number] Ordering Provider: SILVIA REDDY Report Released Date/Time: Aug 12, 2024 04:47 PM Reporting Lab: [facility]1 [facility] [address] Performing Lab: [facility] [address] GLUCOSE,BLOOD- poct (STL) 128 mg/dL H -Aug 12, 2024 11:26 AM [facility] GLUCOSE,BLOOD-poct (STL) Specimen Type: BLOOD Comment: Test Performed by: [id number] Meter #: [id number] Ordering Provider: SILVIA REDDY Report Released Date/Time: Aug 12, 2024 11:45 AM Reporting Lab: [facility]1 [facility] [address] Performing Lab: [facility] #1 [facility] [address] GLUCOSE,BLOOD- poct (STL) 188 mg/dL H -Aug 12, 2024 06:13 AM [facility] GLUCOSE,BLOOD-poct (STL) Specimen Type: BLOOD Comment: Test Performed by: [id number] Meter #: [id number] Ordering Provider: SILVIA REDDY Report Released Date/Time: Aug 12, 2024 06:25 AM Reporting Lab: [facility]1 [facility] [address] Performing Lab: [facility] #1 [facility] [address] GLUCOSE,BLOOD- poct (STL) 116 mg/dL H -Aug 11, 2024 04:10 PM [facility] GLUCOSE,BLOOD-poct (STL) Specimen Type: BLOOD Comment: Test Performed by: [id number] Meter #: [id number] Ordering Provider: SILVIA REDDY Report Released Date/Time: Aug 11, 2024 04:27 PM Reporting Lab: [facility] #1 [facility] [address] Performing Lab: [facility]1 [facility] [address] GLUCOSE,BLOOD- poct (STL) 184 mg/dL H 72-99 Aug 11, 2024 01:44 PM [facility] MRSA SURVL NARES DNA Specimen [...] Aug 11, 2024 02:03 PM Reporting Lab: [facility] [address] [place] [address] Performing Lab: [address] [address] MRSA SURVL NARES DNA Negative Negative Jul 20, 2024 11:18 AM [facility] APTT Specimen Type: PLASMA No comment entered. Ordering Provider: MANUEL BAIRD Report Released Date/Time: Jul 19, 2024 04:00 PM Reporting Lab: [facility] [address] [place] [address] Performing Lab: [address] [address] APTT 32.1 s 26.7-39.9 Jul 20, 2024 11:18 AM [facility] PT/INR NEW (STL-MA) Specimen Type: PLASMA No comment entered. Ordering Provider: MANUEL BAIRD Report Released Date/Time: Jul 19, 2024 04:00 PM Reporting Lab: [facility] [address] [facility] [address] Performing Lab: [address] [address] PROTIME 14.4 s H 9.4-12.5 INR VALUE 1.3 {INR} Jul 20, 2024 11:18 AM [facility] CBC Specimen Type: BLOOD No comment entered. Ordering Provider: MANUEL BAIRD Report Released Date/Time: Jul 19, 2024 04:00 PM Reporting Lab: [address] [address] Performing Lab: [address] [address] WBC 4.7 10*3/uL 3.6-11.2 RBC 4.86 10*6/uL [...] 1.0-7.0 Jul 17, 2024 08:02 AM [facility] BASIC METABOLIC PANEL Specimen Type: PLASMA Comment: No hemolysis noted. Ordering Provider: MARY SERNA Report Released Date/Time: Jun 07, 2024 01:43 PM Reporting Lab: [facility] [address] [facility] [address] Performing Lab: [facility] [address] [facility] [address] CREATININE 0.85 mg/dL 0.7-1.3 UREA NITROGEN 15.2 [...] Height Weight Body Mass Index Source Aug 14, 2024 09:21 PM 98.4 84 119/62 18 97 [facility] N Aug 14, 2024 08:00 PM 0 [facility] Aug 14, 2024 10:26 AM 0 [facility] N Aug 14, 2024 09:28 AM 97.7 69 118/68 18 97 [facility] N Aug 14, 2024 05:48 AM 97.7 78 136/87 16 97 [facility] Advance Directives: All historical and current Section Date Range: From patient's date of to the date document was created. This section includes ALL of a patient's completed or amended [place] Advance and Rescinded Directives. The entries below indicate that a directive exists for the patient, but an actual copy is not included with this document. The data comes from all [place] facilities. Date Advance Directives Provider Source Jan 19, 2017 ADVANCE DIRECTIVE DISCUSSION ERICK BARDALES [facility] Encounter Notes: All associated encounter notes This section contains the clinical notes associated to the Encounter. 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 [place] has cardiac precautions from CABG 07-24-24. 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 does express interest in being able to go fishing once fully rehabilitated. [place] has denied need for leisure resources to be placed in his room for self directed use stating, watching television is enough. I have my computer here too. [place] is receptive to recreation therapy for increased physical endurance. LEISURE INTERESTS: bowling, dining out, fishing, music, shopping, TV, Other: used to shoot pool, plays slots on computer, has a cat, PHYSICAL CONDITION: UE Function: Right - weak Left - weak Visual: Assistive device: glasses Auditory: functional COMMUNICATION/SOCIAL ASSESSMENT: Eye Contact: consistent Easily Distracted: No Speech: functional Communication Behaviors: responds appropriately, initiates conversation BEHAVIORAL/PSYCHOLOGICAL ASSESSMENT: Patient is: alert Affect: within normal range History of psychological issues: none noted Patient is receptive to Recreational Therapy services? Yes VOCATIONAL ASSESSMENT: Majority of leisure time occurs: home Majority of leisure time occurs: family Involved in community activities: weekly Member of organization: [place] of organization: n/a Transportation: independent LEISURE BARRIERS: poor physical condition PATIENT OPINION OF LEISURE LIFESTYLE: Satisfied: Yes Activities most important to resume: fishing Patient leisure goal: I haven't thought about it. WHAT MATTERS What Matters was addressed at this visit. Comment: Getting better, to be able to get up and walk. RECREATION THERAPY TREATMENT PLAN The short-term and long-term goals checked are also identified on the multidisciplinary Care Plan. THERAPEUTIC PATH HAS BEEN IDENTIFIED FOR TREATMENT OF IDENTIFIED BARRIERS SHORT-TERM GOALS/OBJECTIVES: IMPROVE INVOLVEMENT IN LEISURE OPPORTUNITIES THAT PROMOTE IMPROVED PHYSICAL CONDITION. Resident will participate in 2 exercise related activities weekly and identify plans for involvement in those activities post discharge. valdemar arias Timeframe: 14 days LONG-TERM GOALS/OBJECTIVES: DEVELOP PLANS FOR AN APPROPRIATE LEISURE LIFESTYLE. Resident will develop a leisure discharge plan that will include identified people, places, and activities, based on the following identified interests: Timeframe: 30 days /shen/ DEVAN LISA RECREATION THERAPIST, [facility] Signed: 08/14/2024 10:41 /shen/ JUDIT PERKINS PHYSICIAN [facility] Cosigned: 08/14/2024 11:03 KAYLIE ALTAMIRANO [facility]
--- OUTSIDE RECORDS SUMMARY | 2024-11-17 04:04 | XMS_ITS ---
OR DAILY HOSPITALIZATION DATA [facility] Encounter Summary Created on: November 16, 2024 CHET WALKER : 1950 Sex: Male Author Name [facility] Organization [facility] ([place]) Address [address] [place] [address] Care Team Providers Care Battery Service Technician Name Role Phone MANUEL BAIRD Primary [...] PART A Apr 08, 2017 PART A [id number] [phone] ASHLEY WALKER PATIENT Selected Encounter This section includes the information on record at OR for the Encounter. Date/Time Encounter Type Encounter Description Reason Pro vider Source Aug 14, 2024 10:26 AM Inpatient Visit DAILY HOSPITALIZATION DATA JARETT ORELLANA Encounter Template Text not used by OR [...] HEALTH Aug 30, 2024 09:30 AM AMBULATORY MEDICINE [facility] Aug 31, 2024 01:00 PM AMBULATORY - SURGERY [facility] Sep 21, 2024 01:30 PM AMBULATORY - MEDICINE [facility] Sep 22, 2024 11:00 AM AMBULATORY - MEDICINE [facility] Sep 29, 2024 12:30 PM AMBULATORY - MEDICINE [facility] Oct 02, 2024 09:30 AM AMBULATORY - MEDICINE [facility] Nov 20, 2024 10:30 AM AMBULATORY - SURGERY [facility] Nov 21, 2024 10:00 AM AMBULATORY - NONE [facility] Dec 11, 2024 10:30 AM AMBULATORY - MEDICINE [facility] Active, Pending, and Scheduled Orders This section [...] - Chemistry Order CBC BLOOD STAT SP [facility] Aug 02, 2024 12:00 AM Laboratory - Chemistry Order COMPREHENSIVE METABOLIC PANEL GREEN LI/HEP BLD/PLAS PLASMA SP [facility] Aug 17, 2024 03:47 PM Consult Order [facility] Cons Bedside [facility] Lab Results: +/- 30 days of the [...] Aug 22, 2024 11:26 AM Reporting Lab: [facility] [facility] [address] Performing Lab: [facility] [address] MAGNESIUM 1.8 mg/dL 1.6-2.6 Aug 23, 2024 08:21 AM [facility] CBC Specimen Type: BLOOD No comment entered. Ordering Provider: SILVIA REDDY Report Released Date/Time: Aug 22, 2024 11:19 AM Reporting Lab: [facility] [address] Performing Lab: [facility] [address] WBC 4.0 10*3/uL 3.6-11.2 RBC 3.65 10*6/uL [...] Specimen Type: BLOOD Comment: Test Performed by: [id number] Meter #: [id number] Ordering Provider: SILVIA REDDY Report Released Date/Time: Aug 23, 2024 05:23 AM Reporting Lab: [facility] [address] Performing Lab: [facility] [facility] [address] GLUCOSE,BLOOD- poct (STL) 99 mg/dL 72-99 Aug 23, 2024 02:45 AM [facility] OCCULT BLOOD FIT X1 SCREEN Specimen Type: FECES No comment entered. Ordering Provider: SILVIA REDDY Report Released Date/Time: Aug 22, 2024 11:23 AM Reporting Lab: [address] [address] Performing Lab: [address] [address] OCCULT BLOOD (FIT) #1 OF 1 Negative Negative Aug 22, 2024 07:30 PM [facility] OCCULT BLOOD FIT X1 SCREEN Specimen Type: FECES No comment entered. Ordering Provider: SILVIA REDDY Report Released Date/Time: Aug 22, 2024 11:23 AM Reporting Lab: [address] [address] Performing Lab: [address] [address] OCCULT BLOOD (FIT) #1 OF 1 Negative Negative Aug 22, 2024 06:15 PM [facility] OCCULT BLOOD FIT X1 SCREEN Specimen Type: FECES No comment entered. Ordering Provider: SILVIA REDDY Report Released Date/Time: Aug 22, 2024 11:23 AM Reporting Lab: [address] [address] Performing Lab: [facility] [address] [facility] [address] OCCULT BLOOD (FIT) #1 OF 1 Negative Negative Aug 22, 2024 04:24 PM [facility] GLUCOSE,BLOOD-poct (STL) Specimen Type: BLOOD Comment: Test Performed by: [id number] Meter #: [id number] Ordering Provider: SILVIA REDDY Report Released Date/Time: Aug 22, 2024 04:36 PM Reporting Lab: [facility] [address] Performing Lab: [facility] [address] [facility] [address] GLUCOSE,BLOOD- poct (STL) 176 mg/dL H -Aug 22, 2024 04:23 PM [facility] GLUCOSE,BLOOD-poct (STL) Specimen Type: BLOOD Comment: Test Performed by: [id number] Meter #: [id number] Ordering Provider: SILVIA REDYD Report Released Date/Time: Aug 22, 2024 04:36 PM Reporting Lab: [facility] [facility] [address] Performing Lab: [facility] [facility] [address] GLUCOSE,BLOOD- poct (STL) 221 mg/dL H 72-Aug 22, 2024 11:15 AM [facility] GLUCOSE,BLOOD-poct (STL) Specimen Type: BLOOD Comment: Test Performed by: [id number] Meter #: [id number] Ordering Provider: SILVIA REDDY Report Released Date/Time: Aug 22, 2024 11:27 AM Reporting Lab: [facility] [facility] [address] Performing Lab: [facility] [facility] [address] GLUCOSE,BLOOD- poct (STL) 140 mg/dL H 72-Aug 22, 2024 08:03 AM [facility] FERRITIN Specimen Type: SERUM No comment entered. Ordering Provider: JUDIT PERKINS Report Released Date/Time: Aug 18, 2024 11:01 AM Reporting Lab: [facility] [address] [facility] [address] Performing Lab: [facility] [address] [facility] [address] FERRITIN 79.50 ng/mL 22-275 Aug 22, 2024 08:03 AM [facility] IRON/TIBC PROFILE Specimen Type: SERUM No comment entered. Ordering Provider: JUDIT PERKINS Report Released Date/Time: Aug 18, 2024 11:01 AM Reporting Lab: [address] [address] Performing Lab: [address] [address] TIBC 283 ug/dL 250-450 TRANSFERRIN 226 mg/dL 163-344 IRON SATURATION 7 L 20-50 IRON 19 ug/dL L 65-175 Aug 22, 2024 08:03 AM [facility] B12 Specimen Type: SERUM No comment entered. Ordering Provider: JUDIT PERKINS Report Released Date/Time: Aug 18, 2024 11:01 AM Reporting Lab: [facility] [facility] [address] Performing Lab: [facility] [address] [facility] [address] B12 631 pg/mL 213-816 Aug 22, 2024 08:03 AM [facility] COMPREHENSIVE METABOLIC PANEL Specimen Type: PLASMA Comment: No hemolysis noted. Ordering Provider: SILVIA REDDY Report Released Date/Time: Aug 17, 2024 01:18 PM Reporting Lab: [facility] [address] [facility] [address] Performing Lab: [address] [address] CREATININE 0.80 mg/dL 0.7-1.3 UREA NITROGEN 9.7 [...] 2024 08:03 AM [facility] CBC Specimen Type: BLOOD No comment entered. Ordering Provider: SILVIA REDDY Report Released Date/Time: Aug 17, 2024 01:18 PM Reporting Lab: [facility] [facility] [address] Performing Lab: [facility] [facility] [address] WBC 3.5 10*3/uL L 3.6-11.2 RBC 3.23 [...] Specimen Type: BLOOD Comment: Test Performed by: [id number] Meter #: [id number] Ordering Provider: SILVIA REDDY Report Released Date/Time: Aug 22, 2024 06:17 AM Reporting Lab: [facility] [facility] [address] Performing Lab: [facility] [address] [facility] [address] GLUCOSE,BLOOD- poct (STL) 170 mg/dL H 72-Aug 21, 2024 04:32 PM [facility] GLUCOSE,BLOOD-poct (STL) Specimen Type: BLOOD Comment: Test Performed by: [id number] Meter #: [id number] Ordering Provider: SILVIA REDDY Report Released Date/Time: Aug 21, 2024 04:49 PM Reporting Lab: [facility] [facility] [address] Performing Lab: [facility] [facility] [address] GLUCOSE,BLOOD- poct (STL) 169 mg/dL H -99 Aug 21, 2024 11:53 AM [facility] GLUCOSE,BLOOD-poct (STL) Specimen Type: BLOOD Comment: Test Performed by: [id number] Meter #: [id number] Ordering Provider: SILVIA REDDY Report Released Date/Time: Aug 21, 2024 12:11 PM Reporting Lab: [facility] [facility] [address] Performing Lab: [facility] [address] GLUCOSE,BLOOD- poct (STL) 149 mg/dL H 72-99 Aug 21, 2024 05:10 AM [facility] GLUCOSE,BLOOD-poct (STL) Specimen Type: BLOOD Comment: Test Performed by: [id number] Meter #: [id number] Ordering Provider: SILVIA REDDY Report Released Date/Time: Aug 21, 2024 05:27 AM Reporting Lab: [facility] [place] [address] Performing Lab: [facility] [address] [place] [phone] GLUCOSE,BLOOD- poct (STL) 118 mg/dL H 72-99 Aug 20, 2024 04:38 PM [facility] GLUCOSE,BLOOD-poct (STL) Specimen Type: BLOOD Comment: Test Performed by: [id number] Meter #: [id number] Ordering Provider: SILVIA REDDY Report Released Date/Time: Aug 21, 2024 01:55 AM Reporting Lab: [facility] [address] [place] [address] Performing Lab: [facility] [address] [place] [address] GLUCOSE,BLOOD- poct (STL) 169 mg/dL H 72-Aug 20, 2024 04:36 PM [facility] GLUCOSE,BLOOD-poct (STL) Specimen Type: BLOOD Comment: Test Performed by: [id number] Meter #: [id number] Ordering Provider: SILVIA REDDY Report Released Date/Time: Aug 21, 2024 01:55 AM Reporting Lab: [facility] [place] [address] Performing Lab: [facility] [place] [address] GLUCOSE,BLOOD- poct (STL) 395 mg/dL H 72-99 Aug 20, 2024 11:45 AM [facility] GLUCOSE,BLOOD-poct (STL) Specimen Type: BLOOD Comment: Test Performed by: [id number] Meter #: [id number] Ordering Provider: SILVIA REDDY Report Released Date/Time: Aug 20, 2024 11:56 AM Reporting Lab: [facility] [facility] [address] Performing Lab: [facility] #[address] [facility] [address] GLUCOSE,BLOOD- poct (STL) 169 mg/dL H 72-Aug 20, 2024 05:06 AM [facility] GLUCOSE,BLOOD-poct (STL) Specimen Type: BLOOD Comment: Test Performed by: [id number] Meter #: [id number] Ordering Provider: SILVIA REDDY Report Released Date/Time: Aug 20, 2024 06:05 AM Reporting Lab: [facility] [facility] [address] Performing Lab: [facility] [facility] [address] GLUCOSE,BLOOD- poct (STL) 115 mg/dL H 72-Aug 19, 2024 04:23 PM [facility] GLUCOSE,BLOOD-poct (STL) Specimen Type: BLOOD Comment: Test Performed by: [id number] Meter #: [id number] Ordering Provider: SILVIA REDDY Report Released Date/Time: Aug 19, 2024 05:54 PM Reporting Lab: [facility] [facility] [address] Performing Lab: [facility] #[address] [facility] [address] GLUCOSE,BLOOD- poct (STL) 137 mg/dL H 72-99 Aug 19, 2024 11:28 AM [facility] GLUCOSE,BLOOD-poct (STL) Specimen Type: BLOOD Comment: Test Performed by: [id number] Meter #: [id number] Ordering Provider: SILVIA REDDY Report Released Date/Time: Aug 19, 2024 11:51 AM Reporting Lab: [facility] [facility] [address] Performing Lab: [facility] [facility] [address] GLUCOSE,BLOOD- poct (STL) 190 mg/dL H 72-99 Aug 19, 2024 05:21 AM [facility] GLUCOSE,BLOOD-poct (STL) Specimen Type: BLOOD Comment: Test Performed by: [id number] Meter #: [id number] Ordering Provider: SILVIA REDDY Report Released Date/Time: Aug 19, 2024 05:56 AM Reporting Lab: [facility] [facility] [address] Performing Lab: [facility] [facility] [address] GLUCOSE,BLOOD- poct (STL) 130 mg/dL H Aug 18, 2024 04:49 PM [facility] GLUCOSE,BLOOD-poct (STL) Specimen Type: BLOOD Comment: Test Performed by: [id number] Meter #: [id number] Ordering Provider: SILVIA REDDY Report Released Date/Time: Aug 18, 2024 05:01 PM Reporting Lab: [facility] [facility] [address] Performing Lab: [facility] #[address] [facility] [address] GLUCOSE,BLOOD- poct (STL) 129 mg/dL H Aug 18, 2024 11:23 AM [facility] GLUCOSE,BLOOD-poct (STL) Specimen Type: BLOOD Comment: Test Performed by: [id number] Meter #: [id number] Ordering Provider: SILVIA REDDY Report Released Date/Time: Aug 18, 2024 11:41 AM Reporting Lab: [facility] [facility] [address] Performing Lab: [facility] [facility] [address] GLUCOSE,BLOOD- poct (STL) 180 mg/dL H Aug 18, 2024 05:08 AM [facility] GLUCOSE,BLOOD-poct (STL) Specimen Type: BLOOD Comment: Test Performed by: [id number] Meter #: [id number] Ordering Provider: SILVIA REDDY Report Released Date/Time: Aug 18, 2024 05:31 AM Reporting Lab: [facility] [place] [address] Performing Lab: [facility] [facility] [address] GLUCOSE,BLOOD- poct (STL) 127 mg/dL H -Aug 17, 2024 07:32 PM [facility] GLUCOSE,BLOOD-poct (STL) Specimen Type: BLOOD Comment: Test Performed by: [id number] Meter #: [id number] Ordering Provider: SILVIA REDDY Report Released Date/Time: Aug 17, 2024 07:59 PM Reporting Lab: [facility] [place] [address] Performing Lab: [facility] [place] [address] GLUCOSE,BLOOD- poct (STL) 154 mg/dL H -Aug 17, 2024 04:24 PM [facility] GLUCOSE,BLOOD-poct (STL) Specimen Type: BLOOD Comment: Test Performed by: [id number] Meter #: [id number] Ordering Provider: SILVIA REDDY Report Released Date/Time: Aug 17, 2024 04:35 PM Reporting Lab: [facility] [place] [address] Performing Lab: [facility] [place] [address] GLUCOSE,BLOOD- poct (STL) 178 mg/dL H -Aug 17, 2024 05:09 AM [facility] GLUCOSE,BLOOD-poct (STL) Specimen Type: BLOOD Comment: Test Performed by: [id number] Meter #: [id number] Ordering Provider: SILVIA REDDY Report Released Date/Time: Aug 17, 2024 05:54 AM Reporting Lab: [facility] [facility] [address] Performing Lab: [facility] [facility] [address] GLUCOSE,BLOOD- poct (STL) 124 mg/dL H 72-Aug 16, 2024 07:40 PM [facility] GLUCOSE,BLOOD-poct (STL) Specimen Type: BLOOD Comment: Test Performed by: [id number] Meter #: [id number] Ordering Provider: SILVIA REDDY Report Released Date/Time: Aug 16, 2024 08:28 PM Reporting Lab: [facility] [facility] [address] Performing Lab: [facility] [facility] [address] GLUCOSE,BLOOD- poct (STL) 144 mg/dL H -Aug 16, 2024 04:19 PM [facility] GLUCOSE,BLOOD-poct (STL) Specimen Type: BLOOD Comment: Test Performed by: [id number] Meter #: [id number] Ordering Provider: SILVIA REDDY Report Released Date/Time: Aug 16, 2024 04:45 PM Reporting Lab: [facility] [facility] [address] Performing Lab: [facility] [facility] [address] GLUCOSE,BLOOD- poct (STL) 138 mg/dL H 72-Aug 16, 2024 11:52 AM [facility] GLUCOSE,BLOOD-poct (STL) Specimen Type: BLOOD Comment: Test Performed by: [id number] Meter #: [id number] Ordering Provider: SILVIA REDDY Report Released Date/Time: Aug 16, 2024 12:04 PM Reporting Lab: [facility] [facility] [address] Performing Lab: [facility] [facility] [address] GLUCOSE,BLOOD- poct (STL) 135 mg/dL H 72-99 Aug 16, 2024 05:24 AM [facility] GLUCOSE,BLOOD-poct (STL) Specimen Type: BLOOD Comment: Test Performed by: [id number] Meter #: [id number] Ordering Provider: SILVIA REDDY Report Released Date/Time: Aug 16, 2024 05:38 AM Reporting Lab: [facility] [facility] [address] Performing Lab: [facility] [facility] [address] GLUCOSE,BLOOD- poct (STL) 151 mg/dL H Aug 15, 2024 07:31 PM [facility] GLUCOSE,BLOOD-poct (STL) Specimen Type: BLOOD Comment: Test Performed by: [id number] Meter #: [id number] Ordering Provider: SILVIA REDDY Report Released Date/Time: Aug 15, 2024 08:07 PM Reporting Lab: [facility] [address] Performing Lab: [facility] [facility] [address] GLUCOSE,BLOOD- poct (STL) 173 mg/dL H Aug 15, 2024 04:18 PM [facility] GLUCOSE,BLOOD-poct (STL) Specimen Type: BLOOD Comment: Test Performed by: [id number] Meter #: [id number] Ordering Provider: SILVIA REDDY Report Released Date/Time: Aug 15, 2024 04:59 PM Reporting Lab: [facility] [facility] [address] Performing Lab: [facility] [address] GLUCOSE,BLOOD- poct (STL) 136 mg/dL H Aug 15, 2024 04:16 PM [facility] GLUCOSE,BLOOD-poct (STL) Specimen Type: BLOOD Comment: Test Performed by: [id number] Meter #: [id number] Ordering Provider: SILVIA REDDY Report Released Date/Time: Aug 15, 2024 04:59 PM Reporting Lab: [facility] [place] [address] Performing Lab: [facility] [facility] [address] GLUCOSE,BLOOD- poct (STL) 194 mg/dL H 72-Aug 15, 2024 11:39 AM [facility] GLUCOSE,BLOOD-poct (STL) Specimen Type: BLOOD Comment: Test Performed by: [id number] Meter #: [id number] Ordering Provider: SILVIA REDDY Report Released Date/Time: Aug 15, 2024 12:00 PM Reporting Lab: [facility] [place] [address] Performing Lab: [facility] [place] [address] GLUCOSE,BLOOD- poct (STL) 127 mg/dL H -Aug 15, 2024 05:07 AM [facility] GLUCOSE,BLOOD-poct (STL) Specimen Type: BLOOD Comment: Test Performed by: [id number] Meter #: [id number] Ordering Provider: SILVIA REDDY Report Released Date/Time: Aug 15, 2024 06:14 AM Reporting Lab: [facility] [place] [address] Performing Lab: [facility] [place] [address] GLUCOSE,BLOOD- poct (STL) 151 mg/dL H -Aug 14, 2024 04:22 PM [facility] GLUCOSE,BLOOD-poct (STL) Specimen Type: BLOOD Comment: Test Performed by: [id number] Meter #: [id number] Ordering Provider: SILVIA REDDY Report Released Date/Time: Aug 14, 2024 04:52 PM Reporting Lab: [facility] [facility] [address] Performing Lab: [facility] [facility] [address] GLUCOSE,BLOOD- poct (STL) 129 mg/dL H 72-99 Aug 14, 2024 11:21 AM [facility] GLUCOSE,BLOOD-poct (STL) Specimen Type: BLOOD Comment: Test Performed by: [id number] Meter #: [id number] Ordering Provider: SILVIA REDDY Report Released Date/Time: Aug 14, 2024 11:37 AM Reporting Lab: [facility] [facility] [address] Performing Lab: [facility] [facility] [address] GLUCOSE,BLOOD- poct (STL) 135 mg/dL H 72-Aug 14, 2024 06:59 AM [facility] QUANTIFERON-TB,4 TUBE Specimen Type: BLOOD Comment: [...] For additional information, please refer to http://education. [employer]/faq/RLC032 (This link is being provided for information/ educational purposes only.) Test Performed by [employer], [employer] [facility], [address] [place] [address] Tommie Garcia M.D., Ph.D., Director of Laboratories , [facility] [id number] Ordering Provider: SILVIA REDDY Report Released Date/Time: Aug 11, 2024 03:58 PM Reporting Lab: [facility] [address] [facility] [address] Performing Lab: [facility] [id number] [place] [address] .NIL - QUANTIFERON 0.04 [IU]/mL .MITOGEN-NIL 0.39 [IU]/mL .QUANTIFERON INDETERMINATE NEGATIVE .TB1-NIL <0.00 [IU]/mL .TB2-NIL <0.00 [IU]/mL Aug 14, 2024 06:59 AM [facility] B12 Specimen Type: SERUM No comment entered. Ordering Provider: SILVIA REDDY Report Released Date/Time: Aug 11, 2024 03:58 PM Reporting Lab: [facility] [place] [phone] Performing Lab: [facility] [facility] [address] B12 757 pg/mL 213-816 Aug 14, 2024 06:59 AM [facility] MAGNESIUM Specimen Type: PLASMA Comment: No hemolysis noted. Ordering Provider: SILVIA REDDY Report Released Date/Time: Aug 11, 2024 03:58 PM Reporting Lab: [facility] [facility] [address] Performing Lab: [facility] [facility] [address] MAGNESIUM 1.9 mg/dL 1.6-2.6 Aug 14, 2024 06:59 AM [facility] FOLATE (STL-MA) Specimen Type: SERUM No comment entered. Ordering Provider: SILVIA REDDY Report Released Date/Time: Aug 11, 2024 03:58 PM Reporting Lab: [facility] [facility] [address] Performing Lab: [facility] [address] FOLATE (STL-MA) 6.8 ng/mL L 7-20 Aug 14, 2024 06:59 AM [facility] VITAMIN D, 25-HYDROXY Specimen Type: SERUM No comment entered. Ordering Provider: SILVIA REDDY Report Released Date/Time: Aug 11, 2024 03:58 PM Reporting Lab: [facility] [address] Performing Lab: [facility] [address] VITAMIN D, 25-HYDROXY 8.9 ng/mL L 30-96 Aug 14, 2024 06:59 AM [facility] COMPREHENSIVE METABOLIC PANEL Specimen Type: PLASMA Comment: No hemolysis noted. Ordering Provider: SILVIA REDDY Report Released Date/Time: Aug 11, 2024 03:58 PM Reporting Lab: [facility] [address] Performing Lab: [facility] [address] CREATININE 0.75 mg/dL 0.70-1.30 UREA NITROGEN 13.6 [...] 95.88 >60 Aug 14, 2024 06:59 AM [facility] CBC Specimen Type: BLOOD No comment entered. Ordering Provider: SILVIA REDDY Report Released Date/Time: Aug 11, 2024 03:58 PM Reporting Lab: [facility] [address] Performing Lab: [facility] [address] WBC 4.1 10*3/uL 3.6-11.2 RBC 3.20 10*6/uL [...] 10*3/uL 0.00-0.20 Aug 14, 2024 05:08 AM [facility] GLUCOSE,BLOOD-poct (STL) Specimen Type: BLOOD Comment: Test Performed by: [id number] Meter #: [id number] Ordering Provider: SILVIA REDDY Report Released Date/Time: Aug 14, 2024 05:52 AM Reporting Lab: [facility] [address] Performing Lab: [facility] [address] GLUCOSE,BLOOD- poct (STL) 135 mg/dL H 72-99 Aug 13, 2024 04:27 PM [facility] GLUCOSE,BLOOD-poct (STL) Specimen Type: BLOOD Comment: Test Performed by: [id number] Meter #: [id number] Ordering Provider: SILVIA REDDY Report Released Date/Time: Aug 13, 2024 04:41 PM Reporting Lab: [facility] [facility] [address] Performing Lab: [facility] [address] GLUCOSE,BLOOD- poct (STL) 181 mg/dL H -Aug 13, 2024 11:33 AM [facility] GLUCOSE,BLOOD-poct (STL) Specimen Type: BLOOD Comment: Test Performed by: [id number] Meter #: [id number] Ordering Provider: SILVIA REDDY Report Released Date/Time: Aug 13, 2024 03:55 PM Reporting Lab: [facility] [address] Performing Lab: [facility] [place] [address] GLUCOSE,BLOOD- poct (STL) 140 mg/dL H Aug 13, 2024 05:54 AM [facility] GLUCOSE,BLOOD-poct (STL) Specimen Type: BLOOD Comment: Test Performed by: [id number] Meter #: [id number] Ordering Provider: SILVIA REDDY Report Released Date/Time: Aug 13, 2024 06:20 AM Reporting Lab: [facility] #1 [facility] [address] Performing Lab: [facility] [address] GLUCOSE,BLOOD- poct (STL) 112 mg/dL H Aug 12, 2024 04:35 PM [facility] GLUCOSE,BLOOD-poct (STL) Specimen Type: BLOOD Comment: Test Performed by: [id number] Meter #: [id number] Ordering Provider: SILVIA REDDY Report Released Date/Time: Aug 12, 2024 04:47 PM Reporting Lab: [facility] [address] Performing Lab: [facility] [address] GLUCOSE,BLOOD- poct (STL) 128 mg/dL H 72-99 Aug 12, 2024 11:26 AM [facility] GLUCOSE,BLOOD-poct (STL) Specimen Type: BLOOD Comment: Test Performed by: [id number] Meter #: [id number] Ordering Provider: SILVIA REDDY Report Released Date/Time: Aug 12, 2024 11:45 AM Reporting Lab: [facility] [address] Performing Lab: [facility] [place] [address] GLUCOSE,BLOOD- poct (STL) 188 mg/dL H -Aug 12, 2024 06:13 AM [facility] GLUCOSE,BLOOD-poct (STL) Specimen Type: BLOOD Comment: Test Performed by: [id number] Meter #: [id number] Ordering Provider: SILVIA REDDY Report Released Date/Time: Aug 12, 2024 06:25 AM Reporting Lab: [facility] [address] Performing Lab: [facility] [address] GLUCOSE,BLOOD- poct (STL) 116 mg/dL H 72-99 Aug 11, 2024 04:10 PM [facility] GLUCOSE,BLOOD-poct (STL) Specimen Type: BLOOD Comment: Test Performed by: [id number] Meter #: [id number] Ordering Provider: SILVIA REDDY Report Released Date/Time: Aug 11, 2024 04:27 PM Reporting Lab: [facility] [place] [address] Performing Lab: [facility] [facility] [address] GLUCOSE,BLOOD- poct (STL) 184 mg/dL H 72-99 Aug 11, 2024 01:44 PM [facility] MRSA SURVL NARES DNA Specimen Type: [...] Aug 11, 2024 02:03 PM Reporting Lab: [address] [address] Performing Lab: [address] [address] MRSA SURVL NARES DNA Negative Negative Jul 20, 2024 11:18 AM [facility] APTT Specimen Type: PLASMA No comment entered. Ordering Provider: MANUEL BAIRD Report Released Date/Time: Jul 19, 2024 04:00 PM Reporting Lab: [address] [address] Performing Lab: [address] [address] APTT 32.1 s 26.7-39.9 Jul 20, 2024 11:18 AM [facility] PT/INR NEW (L-WA) Specimen Type: PLASMA No comment entered. Ordering Provider: MANUEL ABIRD Report Released Date/Time: Jul 19, 2024 04:00 PM Reporting Lab: [address] [address] Performing Lab: [address] [address] PROTIME 14.4 s H 9.4-12.5 INR VALUE 1.3 {INR} Jul 20, 2024 11:18 AM [facility] CBC Specimen Type: BLOOD No comment entered. Ordering Provider: MANUEL BAIRD Report Released Date/Time: Jul 19, 2024 04:00 PM Reporting Lab: [facility] [address] [facility] [address] Performing Lab: [address] [address] WBC 4.7 10*3/uL 3.6-11.2 RBC 4.86 10*6/uL [...] 1.6 1.0-7.0 Jul 17, 2024 08:[address] [facility] BASIC METABOLIC PANEL Specimen Type: PLASMA Comment: No hemolysis noted. Ordering Provider: MARY SERNA Report Released Date/Time: Jun 07, 2024 01:43 PM Reporting Lab: [facility] [address] [place] [address] Performing Lab: [address] [address] CREATININE 0.85 mg/dL 0.7-1.3 UREA NITROGEN 15.2 [...] 09:21 PM 98.4 84 119/62 18 97 [facility] Aug 14, 2024 08:00 PM 0 [facility] Aug 14, 2024 10:26 AM 0 [facility] Aug 14, 2024 09:28 AM 97.7 69 118/68 18 97 [facility] Aug 14, 2024 05:48 AM 97.7 78 136/87 16 97 [facility] Advance Directives: All historical [...] 19, 2017 ADVANCE DIRECTIVE DISCUSSION ERICK BARDALES [facility]
--- OUTSIDE RECORDS SUMMARY | 2024-11-17 04:04 | XMS_ITS | Encounter Summary ---
Author Name [facility] Address [address] [place] [address] Care Team Providers Care Glass Driller Name Role Phone MANUEL BAIRD Primary Care [...] PART A Apr 08, 2017 PART A [id number] ASHLEY WALKER PATIENT Selected Encounter This section includes the information on record at [place] for the Encounter. Date/Time Encounter Type Encounter Description Reason Pro vider Source IHE Encounter Template Text not used by [facility] Advance Directives: All historical and current Section Date Range: From patient's date of to the date document was created. This section includes ALL of a patient's completed or amended [place] Advance and Rescinded Directives. The entries below indicate that a directive exists for the patient, but an actual copy is not included with this document. The data comes from all [place] facilities. Date Advance Directives Provider Source Jan 19, 2017 ADVANCE DIRECTIVE DISCUSSION ERICK BARDALES [facility]
--- OUTSIDE RECORDS SUMMARY | 2024-11-17 04:05 | XMS_ITS ---
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 Date/Time Encounter Type Encounter Description Reason Pro vider Source Aug 14, 2024 11:16 AM Inpatient Visit DAILY HOSPITALIZATION DATA LEELA PAMLER Encounter Template Text not used by MD [...] 20 appointments. The data comes from all [facility]. Appointment Date/Time Appointment Type Appointme nt Facility Name Aug 24, 2024 10:00 AM AMBULATORY - MEDICINE [facility] Aug 24, 2024 10:30 AM AMBULATORY - MEDICINE [facility] Aug 30, 2024 09:30 AM AMBULATORY MEDICINE [facility] Aug 31, 2024 01:00 PM AMBULATORY - SURGERY [facility] Sep 21, 2024 01:30 PM AMBULATORY - MEDICINE [facility] Sep 22, 2024 11:00 AM AMBULATORY - MEDICINE [facility] Sep 29, 2024 12:30 PM AMBULATORY - MEDICINE [facility] Oct 02, 2024 09:30 AM AMBULATORY - MEDICINE [facility] Nov 20, 2024 10:30 AM AMBULATORY - SUR[facility]ERY [facility] Nov 21, 2024 10:00 AM AMBULATORY - NONE [facility] Dec 11, 2024 10:30 AM [...] of theEncounter. The data comes from all [facility]. Test Date/Time Test Type Test Details Facility Name Aug 02, 2024 12:00 AM Laboratory - Chemistry Order CBC BLOOD STAT SP [facility] Aug 02, 2024 12:00 AM Laboratory - Chemistry Order COMPREHENSIVE METABOLIC PANEL GREEN LI/HEP BLD/PLAS PLASMA SP [facility] Aug 17, 2024 03:47 PM Consult Order [facility] Cons Bedside PROGRESS [...] Range Comment Aug 23, 2024 08:21 AM [facility] MAGNESIUM Specimen Type: PLASMA No comment entered. Ordering Provider: SILVIA REDDY Report Released Date/Time: Aug 22, 2024 11:26 AM Reporting Lab: [facility] [address] Performing Lab: [facility] [address] MAGNESIUM 1.8 mg/dL 1.6-2.6 Aug 23, 2024 08:21 AM [facility] CBC Specimen Type: BLOOD No comment entered. Ordering Provider: SILVIA REDDY Report Released Date/Time: Aug 22, 2024 11:19 AM Reporting Lab: [facility] [address] Performing Lab: [facility] [address] WBC 4.0 10*3/uL 3.6-11.2 RBC 3.65 10*6/uL [...] 10*3/uL 0.00-0.20 Aug 23, 2024 05:12 AM [facility] GLUCOSE,BLOOD-poct (STL) Specimen Type: BLOOD Comment: Test Performed by: [id number] Meter #: [id number] Ordering Provider: SILVIA REDDY Report Released Date/Time: Aug 23, 2024 05:23 AM Reporting Lab: [facility] [address] Performing Lab: [facility] #1 [facility] [address] GLUCOSE,BLOOD- poct (STL) 99 mg/dL 72-99 Aug 23, 2024 02:45 AM [facility] OCCULT BLOOD FIT X1 SCREEN Specimen Type: FECES No comment entered. Ordering Provider: SILVIA REDDY Report Released Date/Time: Aug 22, 2024 11:23 AM Reporting Lab: [address] [address] Performing Lab: [address] [address] OCCULT BLOOD (FIT) #1 OF 1 Negative Negative Aug 22, 2024 07:30 PM [facility] OCCULT BLOOD FIT X1 SCREEN Specimen Type: FECES No comment entered. Ordering Provider: SILVAI REDDY Report Released Date/Time: Aug 22, 2024 11:23 AM Reporting Lab: [address] [address] Performing Lab: [address] [address] OCCULT BLOOD (FIT) #1 OF 1 Negative Negative Aug 22, 2024 06:15 PM [facility] OCCULT BLOOD FIT X1 SCREEN Specimen Type: FECES No comment entered. Ordering Provider: SILVIA REDDY Report Released Date/Time: Aug 22, 2024 11:23 AM Reporting Lab: [address] [address] Performing Lab: [facility] [address] [facility] [address] OCCULT BLOOD (FIT) #1 OF 1 Negative Negative Aug 22, 2024 04:24 PM [facility] GLUCOSE,BLOOD-poct (STL) Specimen Type: BLOOD Comment: Test Performed by: [id number] Meter #: [id number] Ordering Provider: SILVIA REDDY Report Released Date/Time: Aug 22, 2024 04:36 PM Reporting Lab: [facility] [address] Performing Lab: [facility] #1 [facility] [address] GLUCOSE,BLOOD- poct (STL) 176 mg/dL H -Aug 22, 2024 04:23 PM [facility] GLUCOSE,BLOOD-poct (STL) Specimen Type: BLOOD Comment: Test Performed by: [id number] Meter #: [id number] Ordering Provider: SILVIA REDDY Report Released Date/Time: Aug 22, 2024 04:36 PM Reporting Lab: [facility] [address] Performing Lab: [facility] [address] GLUCOSE,BLOOD- poct (STL) 221 mg/dL H 72-Aug 22, 2024 11:15 AM [facility] GLUCOSE,BLOOD-poct (STL) Specimen Type: BLOOD Comment: Test Performed by: [id number] Meter #: [id number] Ordering Provider: SILVIA RDEDY Report Released Date/Time: Aug 22, 2024 11:27 AM Reporting Lab: [facility] [address] Performing Lab: [facility] [address] GLUCOSE,BLOOD- poct (STL) 140 mg/dL H 72-Aug 22, 2024 08:03 AM [facility] FERRITIN Specimen Type: SERUM No comment entered. Ordering Provider: JUDIT PERKINS Report Released Date/Time: Aug 18, 2024 11:01 AM Reporting Lab: [facility] [address] [facility] [address] Performing Lab: [facility] [address] [facility] [address] FERRITIN 79.50 ng/mL 22-275 Aug 22, 2024 08:03 AM [facility] IRON/TIBC PROFILE Specimen Type: SERUM No comment entered. Ordering Provider: JUDIT PERKINS Report Released Date/Time: Aug 18, 2024 11:01 AM Reporting Lab: [address] [address] Performing Lab: [address] [address] TIBC 283 ug/dL 250-450 TRANSFERRIN 226 mg/dL 163-344 IRON SATURATION 7 L 20-50 IRON 19 ug/dL L 65-175 Aug 22, 2024 08:03 AM [facility] B12 Specimen Type: SERUM No comment entered. Ordering Provider: JUDIT PERKINS Report Released Date/Time: Aug 18, 2024 11:01 AM Reporting Lab: [facility] [address] Performing Lab: [facility] #1 [facility] [address] B12 631 pg/mL 213-816 Aug 22, 2024 08:03 AM [facility] COMPREHENSIVE METABOLIC PANEL Specimen Type: PLASMA Comment: No hemolysis noted. Ordering Provider: SILVIA REDDY Report Released Date/Time: Aug 17, 2024 01:18 PM Reporting Lab: [facility] [address] [facility] [address] Performing Lab: [address] [address] CREATININE 0.80 mg/dL 0.7-1.3 UREA NITROGEN 9.7 [...] 94.0 >60 Aug 22, 2024 08:03 AM [facility] CBC Specimen Type: BLOOD No comment entered. Ordering Provider: SILVIA REDDY Report Released Date/Time: Aug 17, 2024 01:18 PM Reporting Lab: [facility] [address] Performing Lab: [facility] [address] WBC 3.5 10*3/uL L 3.6-11.2 RBC 3.23 [...] NRBC% 0 Aug 22, 2024 05:03 AM [facility] GLUCOSE,BLOOD-poct (STL) Specimen Type: BLOOD Comment: Test Performed by: [id number] Meter #: [id number] Ordering Provider: SILVIA REDDY Report Released Date/Time: Aug 22, 2024 06:17 AM Reporting Lab: [facility] #1 [facility] [address] Performing Lab: [facility] #1 [facility] [address] GLUCOSE,BLOOD- poct (STL) 170 mg/dL H 72-Aug 21, 2024 04:32 PM [facility] GLUCOSE,BLOOD-poct (STL) Specimen Type: BLOOD Comment: Test Performed by: [id number] Meter #: [id number] Ordering Provider: SILVIA REDDY Report Released Date/Time: Aug 21, 2024 04:49 PM Reporting Lab: [facility] [address] Performing Lab: [facility] #1 [facility] [address] GLUCOSE,BLOOD- poct (STL) 169 mg/dL H -99 Aug 21, 2024 11:53 AM [facility] GLUCOSE,BLOOD-poct (STL) Specimen Type: BLOOD Comment: Test Performed by: [id number] Meter #: [id number] Ordering Provider: SILVIA REDDY Report Released Date/Time: Aug 21, 2024 12:11 PM Reporting Lab: [facility] #1 [facility] [address] Performing Lab: [facility] [address] GLUCOSE,BLOOD- poct (STL) 149 mg/dL H 72-99 Aug 21, 2024 05:10 AM [facility] GLUCOSE,BLOOD-poct (STL) Specimen Type: BLOOD Comment: Test Performed by: [id number] Meter #: [id number] Ordering Provider: SILVIA REDDY Report Released Date/Time: Aug 21, 2024 05:27 AM Reporting Lab: [facility] [place] [address] Performing Lab: [facility] #[address] [place] [phone] GLUCOSE,BLOOD- poct (STL) 118 mg/dL H 72-99 Aug 20, 2024 04:38 PM [facility] GLUCOSE,BLOOD-poct (STL) Specimen Type: BLOOD Comment: Test Performed by: [id number] Meter #: [id number] Ordering Provider: SILVIA REDDY Report Released Date/Time: Aug 21, 2024 01:55 AM Reporting Lab: [facility] #1 [place] [address] Performing Lab: [facility] #[address] [place] [address] GLUCOSE,BLOOD- poct (STL) 169 mg/dL H 72-Aug 20, 2024 04:36 PM [facility] GLUCOSE,BLOOD-poct (STL) Specimen Type: BLOOD Comment: Test Performed by: [id number] Meter #: [id number] Ordering Provider: SILVIA REDDY Report Released Date/Time: Aug 21, 2024 01:55 AM Reporting Lab: [facility] [place] [address] Performing Lab: [facility] [place] [address] GLUCOSE,BLOOD- poct (STL) 395 mg/dL H 72-99 Aug 20, 2024 11:45 AM [facility] GLUCOSE,BLOOD-poct (STL) Specimen Type: BLOOD Comment: Test Performed by: [id number] Meter #: [id number] Ordering Provider: SILVIA REDDY Report Released Date/Time: Aug 20, 2024 11:56 AM Reporting Lab: [facility] [address] Performing Lab: [facility] #1 [facility] [address] GLUCOSE,BLOOD- poct (STL) 169 mg/dL H 72-Aug 20, 2024 05:06 AM [facility] GLUCOSE,BLOOD-poct (STL) Specimen Type: BLOOD Comment: Test Performed by: [id number] Meter #: [id number] Ordering Provider: SILVIA REDDY Report Released Date/Time: Aug 20, 2024 06:05 AM Reporting Lab: [facility]1 [facility] [address] Performing Lab: [facility] #1 [facility] [address] GLUCOSE,BLOOD- poct (STL) 115 mg/dL H 72-Aug 19, 2024 04:23 PM [facility] GLUCOSE,BLOOD-poct (STL) Specimen Type: BLOOD Comment: Test Performed by: [id number] Meter #: [id number] Ordering Provider: SILVIA REDDY Report Released Date/Time: Aug 19, 2024 05:54 PM Reporting Lab: [facility]1 [facility] [address] Performing Lab: [facility] #1 [facility] [address] GLUCOSE,BLOOD- poct (STL) 137 mg/dL H 72-99 Aug 19, 2024 11:28 AM [facility] GLUCOSE,BLOOD-poct (STL) Specimen Type: BLOOD Comment: Test Performed by: [id number] Meter #: [id number] Ordering Provider: SILVIA REDDY Report Released Date/Time: Aug 19, 2024 11:51 AM Reporting Lab: [facility]1 [facility] [address] Performing Lab: [facility] #1 [facility] [address] GLUCOSE,BLOOD- poct (STL) 190 mg/dL H 72-99 Aug 19, 2024 05:21 AM [facility] GLUCOSE,BLOOD-poct (STL) Specimen Type: BLOOD Comment: Test Performed by: [id number] Meter #: [id number] Ordering Provider: SILVIA REDDY Report Released Date/Time: Aug 19, 2024 05:56 AM Reporting Lab: [facility]1 [facility] [address] Performing Lab: [facility] #1 [facility] [address] GLUCOSE,BLOOD- poct (STL) 130 mg/dL H Aug 18, 2024 04:49 PM [facility] GLUCOSE,BLOOD-poct (STL) Specimen Type: BLOOD Comment: Test Performed by: [id number] Meter #: [id number] Ordering Provider: SILVIA REDDY Report Released Date/Time: Aug 18, 2024 05:01 PM Reporting Lab: [facility] [address] Performing Lab: [facility] #1 [facility] [address] GLUCOSE,BLOOD- poct (STL) 129 mg/dL H Aug 18, 2024 11:23 AM [facility] GLUCOSE,BLOOD-poct (STL) Specimen Type: BLOOD Comment: Test Performed by: [id number] Meter #: [id number] Ordering Provider: SILVIA REDDY Report Released Date/Time: Aug 18, 2024 11:41 AM Reporting Lab: [facility]1 [facility] [address] Performing Lab: [facility] #1 [facility] [address] GLUCOSE,BLOOD- poct (STL) 180 mg/dL H Aug 18, 2024 05:08 AM [facility] GLUCOSE,BLOOD-poct (STL) Specimen Type: BLOOD Comment: Test Performed by: [id number] Meter #: [id number] Ordering Provider: SILVIA REDDY Report Released Date/Time: Aug 18, 2024 05:31 AM Reporting Lab: [facility] [place] [address] Performing Lab: [facility]1 [facility] [address] GLUCOSE,BLOOD- poct (STL) 127 mg/dL H -Aug 17, 2024 07:32 PM [facility] GLUCOSE,BLOOD-poct (STL) Specimen Type: BLOOD Comment: Test Performed by: [id number] Meter #: [id number] Ordering Provider: SILVIA REDDY Report Released Date/Time: Aug 17, 2024 07:59 PM Reporting Lab: [facility]1 [place] [address] Performing Lab: [facility] [place] [address] GLUCOSE,BLOOD- poct (STL) 154 mg/dL H -Aug 17, 2024 04:24 PM [facility] GLUCOSE,BLOOD-poct (STL) Specimen Type: BLOOD Comment: Test Performed by: [id number] Meter #: [id number] Ordering Provider: SILVIA REDDY Report Released Date/Time: Aug 17, 2024 04:35 PM Reporting Lab: [facility] [place] [address] Performing Lab: [facility] [place] [address] GLUCOSE,BLOOD- poct (STL) 178 mg/dL H -Aug 17, 2024 05:09 AM [facility] GLUCOSE,BLOOD-poct (STL) Specimen Type: BLOOD Comment: Test Performed by: [id number] Meter #: [id number] Ordering Provider: SILVIA REDDY Report Released Date/Time: Aug 17, 2024 05:54 AM Reporting Lab: [facility] [address] Performing Lab: [facility]1 [facility] [address] GLUCOSE,BLOOD- poct (STL) 124 mg/dL H 72-Aug 16, 2024 07:40 PM [facility] GLUCOSE,BLOOD-poct (STL) Specimen Type: BLOOD Comment: Test Performed by: [id number] Meter #: [id number] Ordering Provider: SILVIA REDDY Report Released Date/Time: Aug 16, 2024 08:28 PM Reporting Lab: [facility] [address] Performing Lab: [facility]1 [facility] [address] GLUCOSE,BLOOD- poct (STL) 144 mg/dL H -Aug 16, 2024 04:19 PM [facility] GLUCOSE,BLOOD-poct (STL) Specimen Type: BLOOD Comment: Test Performed by: [id number] Meter #: [id number] Ordering Provider: SILVIA REDDY Report Released Date/Time: Aug 16, 2024 04:45 PM Reporting Lab: [facility] [address] Performing Lab: [facility]1 [facility] [address] GLUCOSE,BLOOD- poct (STL) 138 mg/dL H 72-Aug 16, 2024 11:52 AM [facility] GLUCOSE,BLOOD-poct (STL) Specimen Type: BLOOD Comment: Test Performed by: [id number] Meter #: [id number] Ordering Provider: SILVIA REDDY Report Released Date/Time: Aug 16, 2024 12:04 PM Reporting Lab: [facility] [address] Performing Lab: [facility]1 [facility] [address] GLUCOSE,BLOOD- poct (STL) 135 mg/dL H 72-99 Aug 16, 2024 05:24 AM [facility] GLUCOSE,BLOOD-poct (STL) Specimen Type: BLOOD Comment: Test Performed by: [id number] Meter #: [id number] Ordering Provider: SILVIA REDDY Report Released Date/Time: Aug 16, 2024 05:38 AM Reporting Lab: [facility] [address] Performing Lab: [facility]1 [facility] [address] GLUCOSE,BLOOD- poct (STL) 151 mg/dL H Aug 15, 2024 07:31 PM [facility] GLUCOSE,BLOOD-poct (STL) Specimen Type: BLOOD Comment: Test Performed by: [id number] Meter #: [id number] Ordering Provider: SILVIA REDDY Report Released Date/Time: Aug 15, 2024 08:07 PM Reporting Lab: [facility] [address] Performing Lab: [facility] [address] GLUCOSE,BLOOD- poct (STL) 173 mg/dL H Aug 15, 2024 04:18 PM [facility] GLUCOSE,BLOOD-poct (STL) Specimen Type: BLOOD Comment: Test Performed by: [id number] Meter #: [id number] Ordering Provider: SILVIA REDDY Report Released Date/Time: Aug 15, 2024 04:59 PM Reporting Lab: [facility] [address] Performing Lab: [facility] [address] GLUCOSE,BLOOD- poct (STL) 136 mg/dL H Aug 15, 2024 04:16 PM [facility] GLUCOSE,BLOOD-poct (STL) Specimen Type: BLOOD Comment: Test Performed by: [id number] Meter #: [id number] Ordering Provider: SILVIA REDDY Report Released Date/Time: Aug 15, 2024 04:59 PM Reporting Lab: [facility] [place] [address] Performing Lab: [facility] [address] GLUCOSE,BLOOD- poct (STL) 194 mg/dL H 72-Aug 15, 2024 11:39 AM [facility] GLUCOSE,BLOOD-poct (STL) Specimen Type: BLOOD Comment: Test Performed by: [id number] Meter #: [id number] Ordering Provider: SILVIA REDDY Report Released Date/Time: Aug 15, 2024 12:00 PM Reporting Lab: [facility] [place] [address] Performing Lab: [facility] [place] [address] GLUCOSE,BLOOD- poct (STL) 127 mg/dL H -Aug 15, 2024 05:07 AM [facility] GLUCOSE,BLOOD-poct (STL) Specimen Type: BLOOD Comment: Test Performed by: [id number] Meter #: [id number] Ordering Provider: SILVIA REDDY Report Released Date/Time: Aug 15, 2024 06:14 AM Reporting Lab: [facility] [place] [address] Performing Lab: [facility] [place] [address] GLUCOSE,BLOOD- poct (STL) 151 mg/dL H -Aug 14, 2024 04:22 PM [facility] GLUCOSE,BLOOD-poct (STL) Specimen Type: BLOOD Comment: Test Performed by: [id number] Meter #: [id number] Ordering Provider: SILVIA REDDY Report Released Date/Time: Aug 14, 2024 04:52 PM Reporting Lab: [facility] [address] Performing Lab: [facility] [address] GLUCOSE,BLOOD- poct (STL) 129 mg/dL H 72-99 Aug 14, 2024 11:21 AM [facility] GLUCOSE,BLOOD-poct (STL) Specimen Type: BLOOD Comment: Test Performed by: [id number] Meter #: [id number] Ordering Provider: SILVIA REDDY Report Released Date/Time: Aug 14, 2024 11:37 AM Reporting Lab: [facility] [address] Performing Lab: [facility] [address] GLUCOSE,BLOOD- poct (STL) 135 mg/dL H 72-Aug 14, 2024 06:59 AM [facility] QUANTIFERON-TB,4 TUBE Specimen Type: [...] For additional information, please refer to http://education. [employer]/faq/ZFB210 (This link is being provided for information/ educational purposes only.) Test Performed by [employer] [facility], [address] [place] [address] Tommie Garcia M.D., Ph.D., Director of Laboratories , [facility] [id number] Ordering Provider: SILVIA REDDY Report Released Date/Time: Aug 11, 2024 03:58 PM Reporting Lab: [facility] [address] [facility] [address] Performing Lab: [facility] [id number] [place] [address] .NIL - QUANTIFERON 0.04 [IU]/mL .MITOGEN-NIL 0.39 [IU]/mL .QUANTIFERON INDETERMINATE NEGATIVE .TB1-NIL <0.00 [IU]/mL .TB2-NIL <0.00 [IU]/mL Aug 14, 2024 06:59 AM [facility] MAGNESIUM Specimen Type: PLASMA Comment: No hemolysis noted. Ordering Provider: SILVIA REDDY Report Released Date/Time: Aug 11, 2024 03:58 PM Reporting Lab: [facility] [phone] Performing Lab: [facility] [phone] MAGNESIUM 1.9 mg/dL 1.6-2.6 Aug 14, 2024 06:59 AM [facility] B12 Specimen Type: SERUM No comment entered. Ordering Provider: SILVIA REDDY Report Released Date/Time: Aug 11, 2024 03:58 PM Reporting Lab: [facility] [id number] Performing Lab: [facility] [id number] B12 757 pg/mL 213-816 Aug 14, 2024 06:59 AM [facility] VITAMIN D, 25-HYDROXY Specimen Type: SERUM No comment entered. Ordering Provider: SILVIA REDDY Report Released Date/Time: Aug 11, 2024 03:58 PM Reporting Lab: [facility] [phone] Performing Lab: [facility] [id number] VITAMIN D, 25-HYDROXY 8.9 ng/mL L 30-96 Aug 14, 2024 06:59 AM [facility] FOLATE ([facility]) Specimen Type: SERUM No comment entered. Ordering Provider: SILVIA REDDY Report Released Date/Time: Aug 11, 2024 03:58 PM Reporting Lab: [facility] [id number] Performing Lab: [facility] [phone] FOLATE (L-ID) 6.8 ng/mL L 7-20 Aug 14, 2024 06:59 AM [facility] CBC Specimen Type: BLOOD No comment entered. Ordering Provider: SILVIA REDDY Report Released Date/Time: Aug 11, 2024 03:58 PM Reporting Lab: [facility] [id number] Performing Lab: [facility] [phone] WBC 4.1 10*3/uL 3.6-11.2 RBC 3.20 10*6/uL [...] 10*3/uL 0.00-0.20 Aug 14, 2024 06:59 AM [facility] COMPREHENSIVE METABOLIC PANEL Specimen Type: PLASMA Comment: No hemolysis noted. Ordering Provider: SILVIA REDDY Report Released Date/Time: Aug 11, 2024 03:58 PM Reporting Lab: [facility] [place] [facility] [id number] Performing Lab: [facility] [place] [id number] CREATININE 0.75 mg/dL 0.70-1.30 UREA NITROGEN 13.6 [...] 95.88 >60 Aug 14, 2024 05:08 AM [facility] GLUCOSE,BLOOD-poct (STL) Specimen Type: BLOOD Comment: Test Performed by: [id number] Meter #: [id number] Ordering Provider: SILVIA REDDY Report Released Date/Time: Aug 14, 2024 05:52 AM Reporting Lab: [facility] [address] Performing Lab: [facility] [address] GLUCOSE,BLOOD- poct (STL) 135 mg/dL H 72-99 Aug 13, 2024 04:27 PM [facility] GLUCOSE,BLOOD-poct (STL) Specimen Type: BLOOD Comment: Test Performed by: [id number] Meter #: [id number] Ordering Provider: SILVIA REDDY Report Released Date/Time: Aug 13, 2024 04:41 PM Reporting Lab: [facility] [address] Performing Lab: [facility] [address] GLUCOSE,BLOOD- poct (STL) 181 mg/dL H -Aug 13, 2024 11:33 AM [facility] GLUCOSE,BLOOD-poct (STL) Specimen Type: BLOOD Comment: Test Performed by: [id number] Meter #: [id number] Ordering Provider: SILVIA REDDY Report Released Date/Time: Aug 13, 2024 03:55 PM Reporting Lab: [facility] [address] Performing Lab: [facility] [place] [address] GLUCOSE,BLOOD- poct (STL) 140 mg/dL H Aug 13, 2024 05:54 AM [facility] GLUCOSE,BLOOD-poct (STL) Specimen Type: BLOOD Comment: Test Performed by: [id number] Meter #: [id number] Ordering Provider: SILVIA REDDY Report Released Date/Time: Aug 13, 2024 06:20 AM Reporting Lab: [facility] [address] Performing Lab: [facility] [address] GLUCOSE,BLOOD- poct (STL) 112 mg/dL H Aug 12, 2024 04:35 PM [facility] GLUCOSE,BLOOD-poct (STL) Specimen Type: BLOOD Comment: Test Performed by: [id number] Meter #: [id number] Ordering Provider: SILVIA REDDY Report Released Date/Time: Aug 12, 2024 04:47 PM Reporting Lab: [facility] [address] Performing Lab: [facility] [address] GLUCOSE,BLOOD- poct (STL) 128 mg/dL H 72-99 Aug 12, 2024 11:26 AM [facility] GLUCOSE,BLOOD-poct (STL) Specimen Type: BLOOD Comment: Test Performed by: [id number] Meter #: [id number] Ordering Provider: SILVIA REDDY Report Released Date/Time: Aug 12, 2024 11:45 AM Reporting Lab: [facility] [address] Performing Lab: [facility] [place] [address] GLUCOSE,BLOOD- poct (STL) 188 mg/dL H -Aug 12, 2024 06:13 AM [facility] GLUCOSE,BLOOD-poct (STL) Specimen Type: BLOOD Comment: Test Performed by: [id number] Meter #: [id number] Ordering Provider: SILVIA REDDY Report Released Date/Time: Aug 12, 2024 06:25 AM Reporting Lab: [facility] [address] Performing Lab: [facility] [address] GLUCOSE,BLOOD- poct (STL) 116 mg/dL H 72-99 Aug 11, 2024 04:10 PM [facility] GLUCOSE,BLOOD-poct (STL) Specimen Type: BLOOD Comment: Test Performed by: [id number] Meter #: [id number] Ordering Provider: SILVIA REDDY Report Released Date/Time: Aug 11, 2024 04:27 PM Reporting Lab: [facility] [place] [address] Performing Lab: [facility] [address] GLUCOSE,BLOOD- poct (STL) 184 mg/dL H 72-99 Aug 11, 2024 01:44 PM [facility] MRSA SURVL NARES DNA [...] 11, 2024 02:03 PM Reporting Lab: [address] [address] Performing Lab: [address] [address] MRSA SURVL NARES DNA Negative Negative Jul 20, 2024 11:18 AM [facility] APTT Specimen Type: PLASMA No comment entered. Ordering Provider: MANUEL BAIRD Report Released Date/Time: Jul 19, 2024 04:00 PM Reporting Lab: [address] [address] Performing Lab: [address] [address] APTT 32.1 s 26.7-39.9 Jul 20, 2024 11:18 AM [facility] PT/INR NEW (L-ID) Specimen Type: PLASMA No comment entered. Ordering Provider: MANUEL BAIRD Report Released Date/Time: Jul 19, 2024 04:00 PM Reporting Lab: [address] [address] Performing Lab: [address] [address] PROTIME 14.4 s H 9.4-12.5 INR VALUE 1.3 {INR} Jul 20, 2024 11:18 AM [facility] CBC Specimen Type: BLOOD No comment entered. Ordering Provider: MANUEL BAIRD Report Released Date/Time: Jul 19, 2024 04:00 PM Reporting Lab: [facility] [address] [facility] [address] Performing Lab: [address] [address] WBC 4.7 10*3/uL 3.6-11.2 RBC 4.86 10*6/uL [...] 07, 2024 01:43 PM Reporting Lab: [facility] [address] [place] [id number] Performing Lab: [address] [address] CREATININE 0.85 mg/dL 0.7-1.3 UREA NITROGEN 15.2 [...] 09:21 PM 98.4 84 119/62 18 97 [facility] Aug 14, 2024 08:00 PM 0 [facility] Aug 14, 2024 10:26 AM 0 [facility] Aug 14, 2024 09:28 AM 97.7 69 118/68 18 97 [facility] Aug 14, 2024 05:48 AM 97.7 78 136/87 16 97 [facility] Advance Directives: [...] DIRECTIVE DISCUSSION ERICK BARDALES [facility]
--- OUTSIDE RECORDS SUMMARY | 2024-11-17 04:05 | XMS_ITS ---
Author Name [facility] [facility] [place] [facility] [place] Address [address] [place] [address] Care Team Providers Care Scientific Systems Analyst Name Role Phone MANUEL BAIRD Primary [...] PART A Apr 08, 2017 PART A [id number] [phone] ASHLEY WALKER PATIENT Selected Encounter This section includes the information on record at [place] for the Encounter. 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 This section includes future appointments and [...] 24, 2024 10:00 AM AMBULATORY - MEDICINE [facility] Aug 24, 2024 10:30 AM AMBULATORY - MEDICINE [facility] Aug 30, 2024 09:30 AM AMBULATORY MEDICINE [facility] Aug 31, 2024 01:00 PM AMBULATORY - SURGERY [facility] Sep 21, 2024 01:30 PM AMBULATORY MEDICINE [facility] Sep 22, 2024 11:00 AM AMBULATORY - MEDICINE [facility] Sep 29, 2024 12:30 PM AMBULATORY - MEDICINE [facility] Oct 02, 2024 09:30 AM AMBULATORY - MEDICINE [facility] Nov 20, 2024 10:30 AM AMBULATORY - SURGERY [facility] Nov 21, 2024 10:00 AM [...] of theEncounter. The data comes from all [facility]. Test Date/Time Test Type Test Details Facility Name Aug 02, 2024 12:00 AM Laboratory - Chemistry Order CBC BLOOD STAT SP [facility] Aug 02, 2024 12:00 AM Laboratory - Chemistry Order COMPREHENSIVE METABOLIC PANEL GREEN LI/HEP BLD/PLAS PLASMA SP [facility] Aug 17, 2024 03:47 PM Consult Order [facility] Cons Bedside [facility] Lab Results: +/- 30 days of the encounter This section includes the Chemistry and Hematology Lab Results on record with [place] for the patient. Radiology Reports and Pathology Reports are provided separately, in subsequent sections. Lab Results This section contains the Chemistry/Hematology Results that were resulted 30 days before or 30 daysafter the date of the Encounter. Date/Time Source Result Type Result - Unit Interpretation Reference Range Comment Aug 23, 2024 08:21 AM [facility] MAGNESIUM Specimen Type: PLASMA No comment entered. Ordering Provider: SILVIA REDDY Report Released Date/Time: Aug 22, 2024 11:26 AM Reporting Lab: [facility] #1 [facility] [address] Performing Lab: [facility] [address] MAGNESIUM 1.8 mg/dL 1.6-2.6 Aug 23, 2024 08:21 AM [facility] CBC Specimen Type: BLOOD No comment entered. Ordering Provider: SILVIA REDDY Report Released Date/Time: Aug 22, 2024 11:19 AM Reporting Lab: [facility]1 [facility] [address] Performing Lab: [facility] [address] WBC 4.0 10*3/uL 3.6-11.2 RBC 3.65 10*6/uL [...] 0.00-0.20 Aug 23, 2024 05:12 AM [facility] GLUCOSE,BLOOD-poct (STL) Specimen Type: BLOOD Comment: Test Performed by: [id number] Meter #: [id number] Ordering Provider: SILVIA REDDY Report Released Date/Time: Aug 23, 2024 05:23 AM Reporting Lab: [facility]1 [facility] [address] Performing Lab: [facility] [address] GLUCOSE,BLOOD- poct (STL) 99 mg/dL 72-99 Aug 23, 2024 02:45 AM [facility] OCCULT BLOOD FIT X1 SCREEN Specimen Type: FECES No comment entered. Ordering Provider: SILVIA REDDY Report Released Date/Time: Aug 22, 2024 11:23 AM Reporting Lab: [address] [address] Performing Lab: [address] [address] OCCULT BLOOD (FIT) #1 OF 1 Negative Negative Aug 22, 2024 07:30 PM [facility] OCCULT BLOOD FIT X1 SCREEN Specimen Type: FECES No comment entered. Ordering Provider: SILVAI REDDY Report Released Date/Time: Aug 22, 2024 11:23 AM Reporting Lab: [address] [address] Performing Lab: [address] [address] OCCULT BLOOD (FIT) #1 OF 1 Negative Negative Aug 22, 2024 06:15 PM [facility] OCCULT BLOOD FIT X1 SCREEN Specimen Type: FECES No comment entered. Ordering Provider: SILVIA REDDY Report Released Date/Time: Aug 22, 2024 11:23 AM Reporting Lab: [facility] [address] [facility] [address] Performing Lab: [address] [address] OCCULT BLOOD (FIT) #1 OF 1 Negative Negative Aug 22, 2024 04:24 PM [facility] GLUCOSE,BLOOD-poct (STL) Specimen Type: BLOOD Comment: Test Performed by: [id number] Meter #: [id number] Ordering Provider: SILVIA REDDY Report Released Date/Time: Aug 22, 2024 04:36 PM Reporting Lab: [facility]1 [facility] [address] Performing Lab: [facility]1 [facility] [address] GLUCOSE,BLOOD- poct (STL) 176 mg/dL H 72-99 Aug 22, 2024 04:23 PM [facility] GLUCOSE,BLOOD-poct (STL) Specimen Type: BLOOD Comment: Test Performed by: [id number] Meter #: [id number] Ordering Provider: SILVIA REDDY Report Released Date/Time: Aug 22, 2024 04:36 PM Reporting Lab: [facility] #1 [facility] [address] Performing Lab: [facility] #1 [facility] [address] GLUCOSE,BLOOD- poct (STL) 221 mg/dL H 72-99 Aug 22, 2024 11:15 AM [facility] GLUCOSE,BLOOD-poct (STL) Specimen Type: BLOOD Comment: Test Performed by: [id number] Meter #: [id number] Ordering Provider: SILVIA REDDY Report Released Date/Time: Aug 22, 2024 11:27 AM Reporting Lab: [facility] #1 [facility] [address] Performing Lab: [facility] #1 [facility] [address] GLUCOSE,BLOOD- poct (STL) 140 mg/dL H 72-99 Aug 22, 2024 08:03 AM [facility] FERRITIN Specimen Type: SERUM No comment entered. Ordering Provider: JUDIT PERKINS Report Released Date/Time: Aug 18, 2024 11:01 AM Reporting Lab: [facility] [address] [facility] [facility] [address] Performing Lab: [facility] [address] [place] [address] FERRITIN 79.50 ng/mL 22-275 Aug 22, 2024 08:03 AM [facility] B12 Specimen Type: SERUM No comment entered. Ordering Provider: JUDIT PERKINS Report Released Date/Time: Aug 18, 2024 11:01 AM Reporting Lab: [facility] #1 [facility] [address] Performing Lab: [facility] #1 [facility] [address] B12 631 pg/mL 213-816 Aug 22, 2024 08:03 AM [facility] IRON/TIBC PROFILE Specimen Type: SERUM No comment entered. Ordering Provider: JUDIT PERKINS Report Released Date/Time: Aug 18, 2024 11:01 AM Reporting Lab: [facility] [address] [facility] [address] Performing Lab: [facility] [address] [facility] [address] TIBC 283 ug/dL 250-450 TRANSFERRIN 226 mg/dL 163-344 IRON SATURATION 7 L 20-50 IRON 19 ug/dL L 65-175 Aug 22, 2024 08:03 AM [facility] COMPREHENSIVE METABOLIC PANEL Specimen Type: PLASMA Comment: No hemolysis noted. Ordering Provider: SILVIA REDDY Report Released Date/Time: Aug 17, 2024 01:18 PM Reporting Lab: [facility] [address] [facility] [facility] [address] Performing Lab: [facility] [address] [facility] [address] CREATININE 0.80 mg/dL 0.7-1.3 UREA NITROGEN 9.7 [...] 94.0 >60 Aug 22, 2024 08:03 AM [facility] CBC Specimen Type: BLOOD No comment entered. Ordering Provider: SILVIA REDDY Report Released Date/Time: Aug 17, 2024 01:18 PM Reporting Lab: [facility] #1 [facility] [address] Performing Lab: [facility] #1 [facility] [address] WBC 3.5 10*3/uL L 3.6-11.2 RBC 3.23 [...] NRBC% 0 Aug 22, 2024 05:03 AM [facility] GLUCOSE,BLOOD-poct (STL) Specimen Type: BLOOD Comment: Test Performed by: [id number] Meter #: [id number] Ordering Provider: SILVIA REDDY Report Released Date/Time: Aug 22, 2024 06:17 AM Reporting Lab: [facility] [place] [address] Performing Lab: [facility] [place] [address] GLUCOSE,BLOOD- poct (STL) 170 mg/dL H 72-99 Aug 21, 2024 04:32 PM [facility] GLUCOSE,BLOOD-poct (STL) Specimen Type: BLOOD Comment: Test Performed by: [id number] Meter #: [id number] Ordering Provider: SILVIA REDDY Report Released Date/Time: Aug 21, 2024 04:49 PM Reporting Lab: [facility] [place] [address] Performing Lab: [facility] [place] [address] GLUCOSE,BLOOD- poct (STL) 169 mg/dL H 72-99 Aug 21, 2024 11:53 AM [facility] GLUCOSE,BLOOD-poct (STL) Specimen Type: BLOOD Comment: Test Performed by: [id number] Meter #: [id number] Ordering Provider: SILVIA REDDY Report Released Date/Time: Aug 21, 2024 12:11 PM Reporting Lab: [facility] [place] [address] Performing Lab: [facility] #1 [facility] [address] GLUCOSE,BLOOD- poct (STL) 149 mg/dL H -Aug 21, 2024 05:10 AM [facility] GLUCOSE,BLOOD-poct (STL) Specimen Type: BLOOD Comment: Test Performed by: [id number] Meter #: [id number] Ordering Provider: SILVIA REDDY Report Released Date/Time: Aug 21, 2024 05:27 AM Reporting Lab: [facility] #1 [facility] [address] Performing Lab: [facility] #1 [facility] [address] GLUCOSE,BLOOD- poct (STL) 118 mg/dL H -Aug 20, 2024 04:38 PM [facility] GLUCOSE,BLOOD-poct (STL) Specimen Type: BLOOD Comment: Test Performed by: [id number] Meter #: [id number] Ordering Provider: SILVIA REDDY Report Released Date/Time: Aug 21, 2024 01:55 AM Reporting Lab: [facility] #1 [facility] [address] Performing Lab: [facility] #1 [facility] [address] GLUCOSE,BLOOD- poct (STL) 169 mg/dL H Aug 20, 2024 04:36 PM [facility] GLUCOSE,BLOOD-poct (STL) Specimen Type: BLOOD Comment: Test Performed by: [id number] Meter #: [id number] Ordering Provider: SILVIA REDDY Report Released Date/Time: Aug 21, 2024 01:55 AM Reporting Lab: [facility]1 [facility] [address] Performing Lab: [facility] #1 [facility] [address] GLUCOSE,BLOOD- poct (STL) 395 mg/dL H Aug 20, 2024 11:45 AM [facility] GLUCOSE,BLOOD-poct (STL) Specimen Type: BLOOD Comment: Test Performed by: [id number] Meter #: [id number] Ordering Provider: SILVIA REDDY Report Released Date/Time: Aug 20, 2024 11:56 AM Reporting Lab: [facility]1 [facility] [address] Performing Lab: [facility] [address] GLUCOSE,BLOOD- poct (STL) 169 mg/dL H 72-Aug 20, 2024 05:06 AM [facility] GLUCOSE,BLOOD-poct (STL) Specimen Type: BLOOD Comment: Test Performed by: [id number] Meter #: [id number] Ordering Provider: SILVIA REDDY Report Released Date/Time: Aug 20, 2024 06:05 AM Reporting Lab: [facility]1 [facility] [address] Performing Lab: [facility] [address] GLUCOSE,BLOOD- poct (STL) 115 mg/dL H -Aug 19, 2024 04:23 PM [facility] GLUCOSE,BLOOD-poct (STL) Specimen Type: BLOOD Comment: Test Performed by: [id number] Meter #: [id number] Ordering Provider: SILVIA REDDY Report Released Date/Time: Aug 19, 2024 05:54 PM Reporting Lab: [facility] #1 [facility] [address] Performing Lab: [facility] [address] GLUCOSE,BLOOD- poct (STL) 137 mg/dL H 72-Aug 19, 2024 11:28 AM [facility] GLUCOSE,BLOOD-poct (STL) Specimen Type: BLOOD Comment: Test Performed by: [id number] Meter #: [id number] Ordering Provider: SILVIA REDDY Report Released Date/Time: Aug 19, 2024 11:51 AM Reporting Lab: [facility] #1 [facility] [address] Performing Lab: [facility] #1 [facility] [address] GLUCOSE,BLOOD- poct (STL) 190 mg/dL H 72-Aug 19, 2024 05:21 AM [facility] GLUCOSE,BLOOD-poct (STL) Specimen Type: BLOOD Comment: Test Performed by: [id number] Meter #: [id number] Ordering Provider: SILVIA REDDY Report Released Date/Time: Aug 19, 2024 05:56 AM Reporting Lab: [facility] #1 [facility] [address] Performing Lab: [facility] [address] GLUCOSE,BLOOD- poct (STL) 130 mg/dL H -Aug 18, 2024 04:49 PM [facility] GLUCOSE,BLOOD-poct (STL) Specimen Type: BLOOD Comment: Test Performed by: [id number] Meter #: [id number] Ordering Provider: SILVIA REDDY Report Released Date/Time: Aug 18, 2024 05:01 PM Reporting Lab: [facility] #1 [facility] [address] Performing Lab: [facility] #1 [facility] [address] GLUCOSE,BLOOD- poct (STL) 129 mg/dL H 72-99 Aug 18, 2024 11:23 AM [facility] GLUCOSE,BLOOD-poct (STL) Specimen Type: BLOOD Comment: Test Performed by: [id number] Meter #: [id number] Ordering Provider: SIVLIA REDDY Report Released Date/Time: Aug 18, 2024 11:41 AM Reporting Lab: [facility] #1 [facility] [address] Performing Lab: [facility] #1 [facility] [address] GLUCOSE,BLOOD- poct (STL) 180 mg/dL H Aug 18, 2024 05:08 AM [facility] GLUCOSE,BLOOD-poct (STL) Specimen Type: BLOOD Comment: Test Performed by: [id number] Meter #: [id number] Ordering Provider: SILVIA REDDY Report Released Date/Time: Aug 18, 2024 05:31 AM Reporting Lab: [facility]1 [facility] [address] Performing Lab: [facility] #1 [facility] [address] GLUCOSE,BLOOD- poct (STL) 127 mg/dL H Aug 17, 2024 07:32 PM [facility] GLUCOSE,BLOOD-poct (STL) Specimen Type: BLOOD Comment: Test Performed by: [id number] Meter #: [id number] Ordering Provider: SILVIA REDDY Report Released Date/Time: Aug 17, 2024 07:59 PM Reporting Lab: [facility] #1 [facility] [address] Performing Lab: [facility] #1 [facility] [address] GLUCOSE,BLOOD- poct (STL) 154 mg/dL H Aug 17, 2024 04:24 PM [facility] GLUCOSE,BLOOD-poct (STL) Specimen Type: BLOOD Comment: Test Performed by: [id number] Meter #: [id number] Ordering Provider: SILVIA REDDY Report Released Date/Time: Aug 17, 2024 04:35 PM Reporting Lab: [facility]1 [facility] [address] Performing Lab: [facility] #1 [facility] [address] GLUCOSE,BLOOD- poct (STL) 178 mg/dL H Aug 17, 2024 05:09 AM [facility] GLUCOSE,BLOOD-poct (STL) Specimen Type: BLOOD Comment: Test Performed by: [id number] Meter #: [id number] Ordering Provider: SILVIA REDDY Report Released Date/Time: Aug 17, 2024 05:54 AM Reporting Lab: [facility] #1 [facility] [address] Performing Lab: [facility] [address] GLUCOSE,BLOOD- poct (STL) 124 mg/dL H -Aug 16, 2024 07:40 PM [facility] GLUCOSE,BLOOD-poct (STL) Specimen Type: BLOOD Comment: Test Performed by: [id number] Meter #: [id number] Ordering Provider: SILVIA REDDY Report Released Date/Time: Aug 16, 2024 08:28 PM Reporting Lab: [facility] #1 [facility] [address] Performing Lab: [facility] [address] GLUCOSE,BLOOD- poct (STL) 144 mg/dL H -Aug 16, 2024 04:19 PM [facility] GLUCOSE,BLOOD-poct (STL) Specimen Type: BLOOD Comment: Test Performed by: [id number] Meter #: [id number] Ordering Provider: SILVIA REDDY Report Released Date/Time: Aug 16, 2024 04:45 PM Reporting Lab: [facility] #1 [facility] [address] Performing Lab: [facility] [address] GLUCOSE,BLOOD- poct (STL) 138 mg/dL H -Aug 16, 2024 11:52 AM [facility] GLUCOSE,BLOOD-poct (STL) Specimen Type: BLOOD Comment: Test Performed by: [id number] Meter #: [id number] Ordering Provider: SILVIA REDDY Report Released Date/Time: Aug 16, 2024 12:04 PM Reporting Lab: [facility] #1 [facility] [address] Performing Lab: [facility] #1 [facility] [address] GLUCOSE,BLOOD- poct (STL) 135 mg/dL H 72-Aug 16, 2024 05:24 AM [facility] GLUCOSE,BLOOD-poct (STL) Specimen Type: BLOOD Comment: Test Performed by: [id number] Meter #: [id number] Ordering Provider: SILVIA REDDY Report Released Date/Time: Aug 16, 2024 05:38 AM Reporting Lab: [facility] #1 [facility] [address] Performing Lab: [facility] [address] GLUCOSE,BLOOD- poct (STL) 151 mg/dL H -Aug 15, 2024 07:31 PM [facility] GLUCOSE,BLOOD-poct (STL) Specimen Type: BLOOD Comment: Test Performed by: [id number] Meter #: [id number] Ordering Provider: SILVIA REDDY Report Released Date/Time: Aug 15, 2024 08:07 PM Reporting Lab: [facility] #1 [facility] [address] Performing Lab: [facility] #1 [facility] [address] GLUCOSE,BLOOD- poct (STL) 173 mg/dL H 72-Aug 15, 2024 04:18 PM [facility] GLUCOSE,BLOOD-poct (STL) Specimen Type: BLOOD Comment: Test Performed by: [id number] Meter #: [id number] Ordering Provider: SILVIA REDDY Report Released Date/Time: Aug 15, 2024 04:59 PM Reporting Lab: [facility] #1 [facility] [address] Performing Lab: [facility]1 [facility] [address] GLUCOSE,BLOOD- poct (STL) 136 mg/dL H Aug 15, 2024 04:16 PM [facility] GLUCOSE,BLOOD-poct (STL) Specimen Type: BLOOD Comment: Test Performed by: [id number] Meter #: [id number] Ordering Provider: SILVIA REDDY Report Released Date/Time: Aug 15, 2024 04:59 PM Reporting Lab: [facility] #1 [facility] [address] Performing Lab: [facility] #1 [facility] [address] GLUCOSE,BLOOD- poct (STL) 194 mg/dL H Aug 15, 2024 11:39 AM [facility] GLUCOSE,BLOOD-poct (STL) Specimen Type: BLOOD Comment: Test Performed by: [id number] Meter #: [id number] Ordering Provider: SILVIA REDDY Report Released Date/Time: Aug 15, 2024 12:00 PM Reporting Lab: [facility] #1 [facility] [address] Performing Lab: [facility] #1 [facility] [address] GLUCOSE,BLOOD- poct (STL) 127 mg/dL H Aug 15, 2024 05:07 AM [facility] GLUCOSE,BLOOD-poct (STL) Specimen Type: BLOOD Comment: Test Performed by: [id number] Meter #: [id number] Ordering Provider: SILVIA REDDY Report Released Date/Time: Aug 15, 2024 06:14 AM Reporting Lab: [facility]1 [facility] [address] Performing Lab: [facility] #1 [facility] [address] GLUCOSE,BLOOD- poct (STL) 151 mg/dL H Aug 14, 2024 04:22 PM [facility] GLUCOSE,BLOOD-poct (STL) Specimen Type: BLOOD Comment: Test Performed by: [id number] Meter #: [id number] Ordering Provider: SILVIA REDDY Report Released Date/Time: Aug 14, 2024 04:52 PM Reporting Lab: [facility] #1 [facility] [address] Performing Lab: [facility] #1 [facility] [address] GLUCOSE,BLOOD- poct (STL) 129 mg/dL H 72-Aug 14, 2024 11:21 AM [facility] GLUCOSE,BLOOD-poct (STL) Specimen Type: BLOOD Comment: Test Performed by: [id number] Meter #: [id number] Ordering Provider: SILVIA REDDY Report Released Date/Time: Aug 14, 2024 11:37 AM Reporting Lab: [facility]1 [facility] [address] Performing Lab: [facility] #1 [facility] [address] GLUCOSE,BLOOD- poct (STL) 135 mg/dL H 72-Aug 14, 2024 06:59 AM [facility] QUANTIFERON-TB,4 TUBE Specimen Type: BLOOD Comment: [...] For additional information, please refer to http://education. [employer]. Factyle/faq/LHL217 (This link is being provided for information/ educational purposes only.) Test Performed by [id number], [facility], [address] [place], [place] Tommie Garcia M.D., Ph.D., Director of Laboratories , [facility] [id number] Ordering Provider: SILVIA REDDY Report Released Date/Time: Aug 11, 2024 03:58 PM Reporting Lab: [facility] [address] [facility] [address] Performing Lab: [facility] [address] [facility] .NIL - QUANTIFERON 0.04 [IU]/mL .MITOGEN-NIL 0.39 [IU]/mL .QUANTIFERON INDETERMINATE NEGATIVE .TB1-NIL <0.00 [IU]/mL .TB2-NIL <0.00 [IU]/mL Aug 14, 2024 06:59 AM [facility] MAGNESIUM Specimen Type: PLASMA Comment: No hemolysis noted. Ordering Provider: SILVIA REDDY Report Released Date/Time: Aug 11, 2024 03:58 PM Reporting Lab: [facility]1 [facility] [address] Performing Lab: [facility]1 [facility] [address] MAGNESIUM 1.9 mg/dL 1.6-2.6 Aug 14, 2024 06:59 AM [facility] B12 Specimen Type: SERUM No comment entered. Ordering Provider: SILVIA REDDY Report Released Date/Time: Aug 11, 2024 03:58 PM Reporting Lab: [facility]1 [facility] [address] Performing Lab: [facility] #1 [place] [phone] B12 757 pg/mL 213-816 Aug 14, 2024 06:59 AM [facility] FOLATE (STL-MA) Specimen Type: SERUM No comment entered. Ordering Provider: SILVIA REDDY Report Released Date/Time: Aug 11, 2024 03:58 PM Reporting Lab: [facility]1 [place] [phone] Performing Lab: [facility]1 [place] [phone] FOLATE (L-MA) 6.8 ng/mL L 7-20 Aug 14, 2024 06:59 AM [facility] VITAMIN D, 25-HYDROXY Specimen Type: SERUM No comment entered. Ordering Provider: SILVIA REDDY Report Released Date/Time: Aug 11, 2024 03:58 PM Reporting Lab: [facility]1 [place] [phone] Performing Lab: [facility]1 [place] [phone] VITAMIN D, 25-HYDROXY 8.9 ng/mL L 30-96 Aug 14, 2024 06:59 AM [facility] CBC Specimen Type: BLOOD No comment entered. Ordering Provider: SILVIA REDDY Report Released Date/Time: Aug 11, 2024 03:58 PM Reporting Lab: [facility]1 [place] [address] Performing Lab: [facility]1 [place] [address] WBC 4.1 10*3/uL 3.6-11.2 RBC 3.20 10*6/uL [...] 10*3/uL 0.00-0.20 Aug 14, 2024 06:59 AM [facility] COMPREHENSIVE METABOLIC PANEL Specimen Type: PLASMA Comment: No hemolysis noted. Ordering Provider: SILVIA REDDY Report Released Date/Time: Aug 11, 2024 03:58 PM Reporting Lab: [facility]1 [facility] [address] Performing Lab: [facility]1 [place] [phone] CREATININE 0.75 mg/dL 0.70-1.30 UREA NITROGEN 13.6 [...] 95.88 >60 Aug 14, 2024 05:08 AM [facility] GLUCOSE,BLOOD-poct (STL) Specimen Type: BLOOD Comment: Test Performed by: [id number] Meter #: [id number] Ordering Provider: SILVIA REDDY Report Released Date/Time: Aug 14, 2024 05:52 AM Reporting Lab: [facility]1 [facility] [address] Performing Lab: [facility] #1 [facility] [address] GLUCOSE,BLOOD- poct (STL) 135 mg/dL H 72-Aug 13, 2024 04:27 PM [facility] GLUCOSE,BLOOD-poct (STL) Specimen Type: BLOOD Comment: Test Performed by: [id number] Meter #: [id number] Ordering Provider: SILVIA REDDY Report Released Date/Time: Aug 13, 2024 04:41 PM Reporting Lab: [facility] #1 [facility] [address] Performing Lab: [facility] #1 [facility] [address] GLUCOSE,BLOOD- poct (STL) 181 mg/dL H Aug 13, 2024 11:33 AM [facility] GLUCOSE,BLOOD-poct (STL) Specimen Type: BLOOD Comment: Test Performed by: [id number] Meter #: [id number] Ordering Provider: SILVIA REDDY Report Released Date/Time: Aug 13, 2024 03:55 PM Reporting Lab: [facility] #1 [facility] [address] Performing Lab: [facility] #1 [facility] [address] GLUCOSE,BLOOD- poct (STL) 140 mg/dL H Aug 13, 2024 05:54 AM [facility] GLUCOSE,BLOOD-poct (STL) Specimen Type: BLOOD Comment: Test Performed by: [id number] Meter #: [id number] Ordering Provider: SILVIA REDDY Report Released Date/Time: Aug 13, 2024 06:20 AM Reporting Lab: [facility] #1 [facility] [address] Performing Lab: [facility]1 [facility] [address] GLUCOSE,BLOOD- poct (STL) 112 mg/dL H -Aug 12, 2024 04:35 PM [facility] GLUCOSE,BLOOD-poct (STL) Specimen Type: BLOOD Comment: Test Performed by: [id number] Meter #: [id number] Ordering Provider: SILVIA REDDY Report Released Date/Time: Aug 12, 2024 04:47 PM Reporting Lab: [facility] #1 [facility] [address] Performing Lab: [facility] #1 [facility] [address] GLUCOSE,BLOOD- poct (STL) 128 mg/dL H -Aug 12, 2024 11:26 AM [facility] GLUCOSE,BLOOD-poct (STL) Specimen Type: BLOOD Comment: Test Performed by: [id number] Meter #: [id number] Ordering Provider: SILVIA REDDY Report Released Date/Time: Aug 12, 2024 11:45 AM Reporting Lab: [facility]1 [facility] [address] Performing Lab: [facility] [address] GLUCOSE,BLOOD- poct (STL) 188 mg/dL H -Aug 12, 2024 06:13 AM [facility] GLUCOSE,BLOOD-poct (STL) Specimen Type: BLOOD Comment: Test Performed by: [id number] Meter #: [id number] Ordering Provider: SILVIA REDDY Report Released Date/Time: Aug 12, 2024 06:25 AM Reporting Lab: [facility]1 [facility] [address] Performing Lab: [facility] #1 [facility] [address] GLUCOSE,BLOOD- poct (STL) 116 mg/dL H -Aug 11, 2024 04:10 PM [facility] GLUCOSE,BLOOD-poct (STL) Specimen Type: BLOOD Comment: Test Performed by: [id number] Meter #: [id number] Ordering Provider: SILVIA REDDY Report Released Date/Time: Aug 11, 2024 04:27 PM Reporting Lab: [facility]1 [facility] [address] Performing Lab: [facility]1 [facility] [address] GLUCOSE,BLOOD- poct (STL) 184 mg/dL H 72-99 Aug 11, 2024 01:44 PM [facility] MRSA SURVL NARES DNA Specimen Type: [...] 11, 2024 02:03 PM Reporting Lab: [facility] [address] [place] [phone] Performing Lab: [facility] [address] [place] [phone] MRSA SURVL NARES DNA Negative Negative Jul 20, 2024 11:18 AM [facility] APTT Specimen Type: PLASMA No comment entered. Ordering Provider: MANUEL BAIRD Report Released Date/Time: Jul 19, 2024 04:00 PM Reporting Lab: [facility] [address] [place] [address] Performing Lab: [facility] [address] [place] [phone] APTT 32.1 s 26.7-39.9 Jul 20, 2024 11:18 AM [facility] PT/INR NEW (STL-MA) Specimen Type: PLASMA No comment entered. Ordering Provider: MANUEL BAIRD Report Released Date/Time: Jul 19, 2024 04:00 PM Reporting Lab: [facility] [address] [facility] [address] Performing Lab: [facility] [address] [facility] [address] PROTIME 14.4 s H 9.4-12.5 INR VALUE 1.3 {INR} Jul 20, 2024 11:18 AM [facility] CBC Specimen Type: BLOOD No comment entered. Ordering Provider: MANUEL BAIRD Report Released Date/Time: Jul 19, 2024 04:00 PM Reporting Lab: [place] [id number] [facility] [address] Performing Lab: [address] [address] WBC 4.7 10*3/uL 3.6-11.2 RBC 4.86 10*6/uL [...] Jun 07, 2024 01:43 PM Reporting Lab: [facility] [address] [facility] [address] Performing Lab: [facility] [address] [facility] [address] CREATININE 0.85 mg/dL 0.7-1.3 UREA NITROGEN 15.2 [...] 09:21 PM 98.4 84 119/62 18 97 [facility] N Aug 14, 2024 08:00 PM 0 [facility] N Aug 14, 2024 10:26 AM 0 [facility] N Aug 14, 2024 09:28 AM 97.7 69 118/68 18 97 [facility] N Aug 14, 2024 05:48 AM 97.7 78 136/87 16 97 [facility] N Advance Directives: All historical and current Section Date Range: From patient's date of to the date document was created. This section includes ALL of a patient's completed or amended [place] Advance and Rescinded Directives. The entries below indicate that a directive exists for the patient, but an actual copy is not included with this document. The data comes from all [place] facilities. Date Advance Directives Provider Source Jan 19, 2017 ADVANCE DIRECTIVE DISCUSSION ERICK BARDALES [facility] Encounter Notes: All associated encounter notes This section contains the clinical notes associated to the Encounter. 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(s) with unspecified Angina Pectoris(ICD-10-CM I25.729) Requesting provider:SILVIA REDDY Order: Eval and treat Date of initial eval:08/14/24 Progress note due: 08/28/24 Precautions: Cardiac prec s/p CABG-including no lifting,push/pull >10# x 4 weeks; Falls Time in/out: 09:05-09:35 Total Minutes: 30 minutes Other people involved in treatment []None []Included: Treatment codes: x OT Eval (Min complex) ___ 59992 Ther Activity ___ 92405 Ther Exercise ___ 22541 Neuro Re-ed, Vestibular Rehab tx _1__ 48771 Self Care ___ 95426 Ther Group ___ 69546 Prosthetic Training Reason for Admission per Medical staff H&P: 74 y.o. yo male w/ PMHx of HTN, HLD, CAD, moderate MR, 2nd degree av block, asthma, JACQUELINE, pHTN, hepatic steatosis, GERD, hiatal hernia, DM Type II (Hgb A1c7.5), hx of pituitary adenoma, and obesity. Patient had worse shortness of breath, cardiac cath on 06/19 showed multivessel disease (LAD, proximal LCX, OM, and subtotal occlusion of RCA), transferred to [facility] and underwent CABG x3 . Has known right ventricular dysfunction, during EMILE [...] referred for further PT and OT at [facility]. Interval history Patient is seen post [...] does use cane and walker at home. PMH: 1) Asthma (SNOMED CT 452343814) 2) Gastro-esophageal reflux disease (SNOMED CT 767125879) 3) Peptic Ulcer Disease * (ICD-9-CM 533.90) 4) Hypertension (SNOMED CT 75791607) 5) Neoplasm of pituitary gland (SNOMED CT 989265092) 6) Hyperlipidemia (SNOMED CT 74363090) 7) Erectile dysfunction associated with type 2 [...] 20) History of coronary artery bypass grafting Lives with: Son Support available: Son as caregiver Previous Self Care level: Indep with ADL House Type: 1 level with basement Steps: 2-3 ANALIA Toilet: SHT Shower: tub/shower without DME Current Equipment: None reported Ambulation device: 4ww, cane Housekeeping: reports shares with son Shopping: Indep Meal prep: Reports his son plans to cook from now on Driving: Indep Medication management: Indep Other: History of Falls: yes, in a parking lot, not in the home for a long time Abbreviations: WFL=Within Functional Limits; (I)=Independent; A=Assist; A/PROM=Act.Rom/Passive ROM; STR=Strength; SBA=Stand by Assist; NT=Not Tested; VC=Verbal Cues; FOREIGN EXCHANGE STUDENT COORDINATOR=Prior To Admission; CNH=Community Mcc; CGA=Contact Guard Assist Patient goals are: being able to walk, increased balance SUBJECTIVE: Vet reports he usually furniture walks to bathroom Pain: 0/10- in R thigh when he does have it OBJECTIVE: Vet seen for OT assessment this date Vitals: BP: 117/71 HR: 90 Sp O2:98% RA UE DOMINANCE: [x] RIGHT [] LEFT UE AROM: WNL within pacemaker precautions UE STRENGTH: deferred d/t precautions- at least 4/5 Hand A/PROM/Coordination/Chief Scientific Officer: 4/5 Tone/Edema/other: 1+ pitting edema in L hand Endurance: Fair Balance: 2+/5 [employer] Balance Scale 0 P performs 25% or less of standing activity. 1 Pt supports self with upper extremities performing 25-50% of effort. 1+ Pt supports self with upper extremities performing >50% of effort. 2 Pt supports self independently with both upper extremities. 2+ Pt supports self independently with 1 upper extremity. 3 Pt supports self independent without upper extremity support for up to 30 seconds. 3+ Pt supports self independent without upper extremity support for up to > 30 seconds 4 Pt independently moves and returns center of gravity 1-2 inches in one plane. 4+ Pt independently moves and returns center of gravity 1-2 inches in multiple planes. 5 Pt independently moves and returns center of gravity in all planes greater than 2 inches. Mental Status: A/O x 4 Short Blessed Test: NT at this time 1. Year 2. Month 3. Time 4. 20-1 5. Months 6. [facility] Section GG Self-Care and Mobility WHITE: 6: Independent, 5: Setup or Cleanup Assistance. 4: Supervision or Touching Assistance. 3: Partial/Moderate Assistance. 2: Substantial/Maximal Assistance. 1: Dependent. 07: Refused. 09: Not Applicable?Did not perform this activity prior. 10: Not Attempted?Due to environmental limitations. 88: Not Attempted?Due to medical condition/safety concerns. SELF-CARE Initial Goal Eatin 6 Oral Hygiene: 10 6 Toilet Hygiene: 6 6 Wash Upper Body: 10 6 Shower/Bathe Self: 10 6 UB Dressin 6 LB Dressin 6 Garrett/Doff Footwear: 6 6 Comments: Vet reports indep with UB/LB dressing but did not demo this date. MOBILITY Roll L+R: 6 6 Sit to Lyin 6 Lying to Sitting EOB: 6 6 Sit to Stand: 5 6 Chair/Bed to Chair Tx: 5 6 Toilet Transfer: 5 6 Comments: Equipment: TBD-anticipate Vet to need shower chair, HHS, grab bars ASSESSMENT: Vet admitted to [facility] following CABG and pacemaker placement. Vet reports PLOF as independent with all ADL and IADL including driving and med management. Vet reports his son lives at home and he pays him for caregiving needs. Vet currently demonstrates decreased endurance and standing balance complicated by current precautions for no lifting/pushing/pulling >10#. Vet will continue to benefit from skilled OT to increase endurance and balance through ADL retraining along with DME/AE education as needed. DISCHARGE RECOMMENDATION: Anticipate Vet to return home with assist from son as needed. Barriers to achieving goals: None PLAN: [place] to be seen by OT 3-5x/week Treatment Plan: __x_ADLs ___UE AROM/AAROM/PROM _x__Transfers ___Cognition ___Coordination _x__Endurance ___Gross/Fine Motor ___Visual Perception ___Standing Act. ___UE Strengthening ___Sensation/Compensation ___Visual Skills ___Facilitation ___Inhibition _x__Adaptive equipment Assessment ___Other: SHORT TERM GOALS: To be achieved in (2 weeks). 1. [place] will demo UB drsg with Indep 2. Vet will demo LB drsg with Indep and AE prn. 3. Vet will demo toilet transfer with Mod I and DME prn. 4. Vet will demo bed->chair transfer with Mod I and DME prn. 5. Vet will demo Mod I for bathing tasks 6. Vet will demo Mod I for tub transfer 7. Vet will participate in Short Blessed Test Occupational Profile and History [] Brief (low) [x] Expanded (moderate) [] Extensive (high) Performance deficits identified: [x] ADLs [] IADLs [x] Functional mobility [] Range of motion [] Muscle Strength [x] Functional Endurance [x] Functional Balance [] Fine motor coordination [x] Adaptive equipment needs [] Cognition [] Other (please specify: ___) White: 1-3 performance deficits = Low complexity 3-5 performance deficits = moderate complexity 5 or more performance deficits = high complexity Level of Clinical Decision Making [] problem-focused assessment [x] detailed assessment [] comprehensive assessment --Therefore the level of complexity of this patient was: [x] Low [] Moderate [] High Clinical reminders Learning Assessment: Patient/Caregiver appeared ready for instruction (good eye contact, appropriate questions, active participation, etc.) Person(s) who received education: Patient Education Topic/Teaching Needs: Activities of Daily Living (ADLs) safety for use of AD in bathroom Methods used included: One-on-one: discussion Teaching outcomes: Good level of understanding /shen/ STEVEN JEFFERSON Occupational Therapist Signed: 08/14/2024 13:07 STEVEN JEFFERSON [facility]
--- OUTSIDE RECORDS SUMMARY | 2024-11-17 04:05 | XMS_ITS ---
[place] DAILY HOSPITALIZATION DATA [facility] Encounter Summary Created on: November 16, 2024 CHET WALKER : 1950 Sex: Male Author Name [facility] [place] [facility] [place] Address [address] [place] [address] Care Team Providers Care Cow Trimmer Name Role Phone MANUEL BAIRD Primary Care [...] PART A Apr 08, 2017 PART A [id number] [phone] ASHLEY WALKER PATIENT Selected Encounter This section includes the information on record at [place] for the Encounter. Date/Time Encounter Type Encounter Description Reason Pro vider Source Aug 14, 2024 07:58 PM Inpatient Visit DAILY HOSPITALIZATION DATA JARETT ORELLANA Encounter Template Text not used by [place] [...] 20 appointments. The data comes from all [facility]. Appointment Date/Time Appointment Type Appointme nt Facility Name Aug 24, 2024 10:00 AM AMBULATORY - MEDICINE [facility] Aug 24, 2024 10:30 AM AMBULATORY - MEDICINE [facility] Aug 30, 2024 09:30 AM AMBULATORY MEDICINE [facility] Aug 31, 2024 01:00 PM AMBULATORY - SURGERY [facility] Sep 21, 2024 01:30 PM AMBULATORY - MEDICINE [facility] Sep 22, 2024 11:00 AM AMBULATORY - MEDICINE [facility] Sep 29, 2024 12:30 PM AMBULATORY - MEDICINE [facility] Oct 02, 2024 09:30 AM AMBULATORY - MEDICINE [facility] Nov 20, 2024 10:30 AM AMBULATORY - SURGERY [facility] Nov 21, 2024 10:00 AM AMBULATORY - NONE [facility] Dec 11, 2024 10:30 AM AMBULATORY - MEDICINE [facility] Active, Pending, and Scheduled Orders This section includes a listing of several types of active, pending, and scheduled orders, including clinic medications orders, diagnostic test orders, procedure orders and consult orders; where the start date of the order is 45 days before the date of the Encounter or 45 days after the date of theEncounter. The data comes from all [facility]. Test Date/Time Test Type Test Details Facility Name Aug 02, 2024 12:00 AM Laboratory - Chemistry Order CBC BLOOD STAT SP [facility] Aug 02, 2024 12:00 AM Laboratory - Chemistry Order COMPREHENSIVE METABOLIC PANEL GREEN LI/HEP BLD/PLAS PLASMA SP [facility] Aug 17, 2024 03:47 PM Consult Order [facility] Cons Bedside [facility] Lab Results: +/- 30 [...] Aug 23, 2024 08:21 AM [facility] MAGNESIUM Specimen Type: PLASMA No comment entered. Ordering Provider: SILVIA REDDY Report Released Date/Time: Aug 22, 2024 11:26 AM Reporting Lab: [facility] [facility] [address] Performing Lab: [facility] [address] MAGNESIUM 1.8 mg/dL 1.6-2.6 Aug 23, 2024 08:21 AM [facility] CBC Specimen Type: BLOOD No comment entered. Ordering Provider: SILVIA REDDY Report Released Date/Time: Aug 22, 2024 11:19 AM Reporting Lab: [facility]1 [facility] [address] Performing Lab: [facility]1 [facility] [address] WBC 4.0 10*3/uL 3.6-11.2 RBC 3.65 10*6/uL [...] Aug 23, 2024 05:12 AM [facility] GLUCOSE,BLOOD-poct (STL) Specimen Type: BLOOD Comment: Test Performed by: [id number] Meter #: [id number] Ordering Provider: SILVIA REDDY Report Released Date/Time: Aug 23, 2024 05:23 AM Reporting Lab: [facility] [address] Performing Lab: [facility] #1 [facility] [address] GLUCOSE,BLOOD- poct (STL) 99 mg/dL 72-99 Aug 23, 2024 02:45 AM [facility] OCCULT BLOOD FIT X1 SCREEN Specimen Type: FECES No comment entered. Ordering Provider: SILVIA REDDY Report Released Date/Time: Aug 22, 2024 11:23 AM Reporting Lab: [address] [address] Performing Lab: [address] [address] OCCULT BLOOD (FIT) #1 OF 1 Negative Negative Aug 22, 2024 07:30 PM [facility] OCCULT BLOOD FIT X1 SCREEN Specimen Type: FECES No comment entered. Ordering Provider: SILVIA REDDY Report Released Date/Time: Aug 22, 2024 11:23 AM Reporting Lab: [address] [address] Performing Lab: [address] [address] OCCULT BLOOD (FIT) #1 OF 1 Negative Negative Aug 22, 2024 06:15 PM [facility] OCCULT BLOOD FIT X1 SCREEN Specimen Type: FECES No comment entered. Ordering Provider: SILVIA REDDY Report Released Date/Time: Aug 22, 2024 11:23 AM Reporting Lab: [address] [address] Performing Lab: [facility] [address] [facility] [address] OCCULT BLOOD (FIT) #1 OF 1 Negative Negative Aug 22, 2024 04:24 PM [facility] GLUCOSE,BLOOD-poct (STL) Specimen Type: BLOOD Comment: Test Performed by: [id number] Meter #: [id number] Ordering Provider: SILVIA REDDY Report Released Date/Time: Aug 22, 2024 04:36 PM Reporting Lab: [facility]1 [facility] [address] Performing Lab: [facility] #1 [facility] [address] GLUCOSE,BLOOD- poct (STL) 176 mg/dL H -Aug 22, 2024 04:23 PM [facility] GLUCOSE,BLOOD-poct (STL) Specimen Type: BLOOD Comment: Test Performed by: [id number] Meter #: [id number] Ordering Provider: SILVIA REDDY Report Released Date/Time: Aug 22, 2024 04:36 PM Reporting Lab: [facility]1 [facility] [address] Performing Lab: [facility]1 [facility] [address] GLUCOSE,BLOOD- poct (STL) 221 mg/dL H 72-Aug 22, 2024 11:15 AM [facility] GLUCOSE,BLOOD-poct (STL) Specimen Type: BLOOD Comment: Test Performed by: [id number] Meter #: [id number] Ordering Provider: SILVIA REDDY Report Released Date/Time: Aug 22, 2024 11:27 AM Reporting Lab: [facility]1 [facility] [address] Performing Lab: [facility]1 [facility] [address] GLUCOSE,BLOOD- poct (STL) 140 mg/dL H 72-Aug 22, 2024 08:03 AM [facility] FERRITIN Specimen Type: SERUM No comment entered. Ordering Provider: JUDIT PERKINS Report Released Date/Time: Aug 18, 2024 11:01 AM Reporting Lab: [facility] [address] [facility] [address] Performing Lab: [facility] [address] [facility] [address] FERRITIN 79.50 ng/mL 22-275 Aug 22, 2024 08:03 AM [facility] CBC Specimen Type: BLOOD No comment entered. Ordering Provider: SILVIA REDDY Report Released Date/Time: Aug 17, 2024 01:18 PM Reporting Lab: [facility]1 [facility] [address] Performing Lab: [facility] [facility] [address] WBC 3.5 10*3/uL L 3.6-11.2 RBC 3.23 [...] NRBC% 0 Aug 22, 2024 08:03 AM [facility] COMPREHENSIVE METABOLIC PANEL Specimen Type: PLASMA Comment: No hemolysis noted. Ordering Provider: SILVIA REDDY Report Released Date/Time: Aug 17, 2024 01:18 PM Reporting Lab: [facility] [address] [place] [address] Performing Lab: [address] [address] CREATININE 0.80 mg/dL 0.7-1.3 UREA NITROGEN 9.7 [...] 94.0 >60 Aug 22, 2024 08:03 AM [facility] IRON/TIBC PROFILE Specimen Type: SERUM No comment entered. Ordering Provider: JUDIT PERKINS Report Released Date/Time: Aug 18, 2024 11:01 AM Reporting Lab: [facility] [address] [facility] [address] Performing Lab: [address] [address] TIBC 283 ug/dL 250-450 TRANSFERRIN 226 mg/dL 163-344 IRON SATURATION 7 L 20-50 IRON 19 ug/dL L 65-175 Aug 22, 2024 08:03 AM [facility] B12 Specimen Type: SERUM No comment entered. Ordering Provider: JUDIT PERKINS Report Released Date/Time: Aug 18, 2024 11:01 AM Reporting Lab: [facility]1 [facility] [address] Performing Lab: [facility] [facility] [address] B12 631 pg/mL 213-816 Aug 22, 2024 05:03 AM [facility] GLUCOSE,BLOOD-poct (STL) Specimen Type: BLOOD Comment: Test Performed by: [id number] Meter #: [id number] Ordering Provider: SILVIA REDDY Report Released Date/Time: Aug 22, 2024 06:17 AM Reporting Lab: [facility] #1 [facility] [address] Performing Lab: [facility] #[address] [facility] [address] GLUCOSE,BLOOD- poct (STL) 170 mg/dL H 72-Aug 21, 2024 04:32 PM [facility] GLUCOSE,BLOOD-poct (STL) Specimen Type: BLOOD Comment: Test Performed by: [id number] Meter #: [id number] Ordering Provider: SILVIA REDDY Report Released Date/Time: Aug 21, 2024 04:49 PM Reporting Lab: [facility]1 [facility] [address] Performing Lab: [facility] #[address] [facility] [address] GLUCOSE,BLOOD- poct (STL) 169 mg/dL H 72-99 Aug 21, 2024 11:53 AM [facility] GLUCOSE,BLOOD-poct (STL) Specimen Type: BLOOD Comment: Test Performed by: [id number] Meter #: [id number] Ordering Provider: SILVIA REDDY Report Released Date/Time: Aug 21, 2024 12:11 PM Reporting Lab: [facility] #[address] [facility] [address] Performing Lab: [facility] #[address] [facility] [address] GLUCOSE,BLOOD- poct (STL) 149 mg/dL H 72-99 Aug 21, 2024 05:10 AM [facility] GLUCOSE,BLOOD-poct (STL) Specimen Type: BLOOD Comment: Test Performed by: [id number] Meter #: [id number] Ordering Provider: SILVIA REDDY Report Released Date/Time: Aug 21, 2024 05:27 AM Reporting Lab: [facility] [address] [place] [address] Performing Lab: [facility] [address] [place] [phone] GLUCOSE,BLOOD- poct (STL) 118 mg/dL H 72-99 Aug 20, 2024 04:38 PM [facility] GLUCOSE,BLOOD-poct (STL) Specimen Type: BLOOD Comment: Test Performed by: [id number] Meter #: [id number] Ordering Provider: SILVIA REDDY Report Released Date/Time: Aug 21, 2024 01:55 AM Reporting Lab: [facility] [address] [place] [address] Performing Lab: [facility] [address] [place] [address] GLUCOSE,BLOOD- poct (STL) 169 mg/dL H 72-Aug 20, 2024 04:36 PM [facility] GLUCOSE,BLOOD-poct (STL) Specimen Type: BLOOD Comment: Test Performed by: [id number] Meter #: [id number] Ordering Provider: SILVIA REDDY Report Released Date/Time: Aug 21, 2024 01:55 AM Reporting Lab: [facility] [place] [address] Performing Lab: [facility] [place] [address] GLUCOSE,BLOOD- poct (STL) 395 mg/dL H 72-99 Aug 20, 2024 11:45 AM [facility] GLUCOSE,BLOOD-poct (STL) Specimen Type: BLOOD Comment: Test Performed by: [id number] Meter #: [id number] Ordering Provider: SILVIA REDDY Report Released Date/Time: Aug 20, 2024 11:56 AM Reporting Lab: [facility]1 [facility] [address] Performing Lab: [facility] #1 [facility] [address] GLUCOSE,BLOOD- poct (STL) 169 mg/dL H 72-Aug 20, 2024 05:06 AM [facility] GLUCOSE,BLOOD-poct (STL) Specimen Type: BLOOD Comment: Test Performed by: [id number] Meter #: [id number] Ordering Provider: SILVIA REDDY Report Released Date/Time: Aug 20, 2024 06:05 AM Reporting Lab: [facility] #[address] [facility] [address] Performing Lab: [facility] #[address] [facility] [address] GLUCOSE,BLOOD- poct (STL) 115 mg/dL H 72-Aug 19, 2024 04:23 PM [facility] GLUCOSE,BLOOD-poct (STL) Specimen Type: BLOOD Comment: Test Performed by: [id number] Meter #: [id number] Ordering Provider: SILVIA REDDY Report Released Date/Time: Aug 19, 2024 05:54 PM Reporting Lab: [facility] #[address] [facility] [address] Performing Lab: [facility] #1 [facility] [address] GLUCOSE,BLOOD- poct (STL) 137 mg/dL H 72-99 Aug 19, 2024 11:28 AM [facility] GLUCOSE,BLOOD-poct (STL) Specimen Type: BLOOD Comment: Test Performed by: [id number] Meter #: [id number] Ordering Provider: SILVIA REDDY Report Released Date/Time: Aug 19, 2024 11:51 AM Reporting Lab: [facility] #1 [facility] [address] Performing Lab: [facility] #1 [facility] [address] GLUCOSE,BLOOD- poct (STL) 190 mg/dL H 72-99 Aug 19, 2024 05:21 AM [facility] GLUCOSE,BLOOD-poct (STL) Specimen Type: BLOOD Comment: Test Performed by: [id number] Meter #: [id number] Ordering Provider: SILVIA REDDY Report Released Date/Time: Aug 19, 2024 05:56 AM Reporting Lab: [facility] #1 [facility] [address] Performing Lab: [facility] #1 [facility] [address] GLUCOSE,BLOOD- poct (STL) 130 mg/dL H Aug 18, 2024 04:49 PM [facility] GLUCOSE,BLOOD-poct (STL) Specimen Type: BLOOD Comment: Test Performed by: [id number] Meter #: [id number] Ordering Provider: SILVIA REDDY Report Released Date/Time: Aug 18, 2024 05:01 PM Reporting Lab: [facility]1 [facility] [address] Performing Lab: [facility] #1 [facility] [address] GLUCOSE,BLOOD- poct (STL) 129 mg/dL H Aug 18, 2024 11:23 AM [facility] GLUCOSE,BLOOD-poct (STL) Specimen Type: BLOOD Comment: Test Performed by: [id number] Meter #: [id number] Ordering Provider: SILVIA REDDY Report Released Date/Time: Aug 18, 2024 11:41 AM Reporting Lab: [facility] #1 [facility] [address] Performing Lab: [facility] #1 [facility] [address] GLUCOSE,BLOOD- poct (STL) 180 mg/dL H Aug 18, 2024 05:08 AM [facility] GLUCOSE,BLOOD-poct (STL) Specimen Type: BLOOD Comment: Test Performed by: [id number] Meter #: [id number] Ordering Provider: SILVIA REDDY Report Released Date/Time: Aug 18, 2024 05:31 AM Reporting Lab: [facility] [place] [address] Performing Lab: [facility] #1 [facility] [address] GLUCOSE,BLOOD- poct (STL) 127 mg/dL H -Aug 17, 2024 07:32 PM [facility] GLUCOSE,BLOOD-poct (STL) Specimen Type: BLOOD Comment: Test Performed by: [id number] Meter #: [id number] Ordering Provider: SILVIA REDDY Report Released Date/Time: Aug 17, 2024 07:59 PM Reporting Lab: [facility] #[address] [place] [address] Performing Lab: [facility] #[address] [place] [address] GLUCOSE,BLOOD- poct (STL) 154 mg/dL H -Aug 17, 2024 04:24 PM [facility] GLUCOSE,BLOOD-poct (STL) Specimen Type: BLOOD Comment: Test Performed by: [id number] Meter #: [id number] Ordering Provider: SILVIA REDDY Report Released Date/Time: Aug 17, 2024 04:35 PM Reporting Lab: [facility] [place] [address] Performing Lab: [facility] [place] [address] GLUCOSE,BLOOD- poct (STL) 178 mg/dL H -Aug 17, 2024 05:09 AM [facility] GLUCOSE,BLOOD-poct (STL) Specimen Type: BLOOD Comment: Test Performed by: [id number] Meter #: [id number] Ordering Provider: SILVIA REDDY Report Released Date/Time: Aug 17, 2024 05:54 AM Reporting Lab: [facility] [facility] [address] Performing Lab: [facility] #[address] [facility] [address] GLUCOSE,BLOOD- poct (STL) 124 mg/dL H 72-Aug 16, 2024 07:40 PM [facility] GLUCOSE,BLOOD-poct (STL) Specimen Type: BLOOD Comment: Test Performed by: [id number] Meter #: [id number] Ordering Provider: SILVIA REDDY Report Released Date/Time: Aug 16, 2024 08:28 PM Reporting Lab: [facility] #1 [facility] [address] Performing Lab: [facility] #[address] [facility] [address] GLUCOSE,BLOOD- poct (STL) 144 mg/dL H -Aug 16, 2024 04:19 PM [facility] GLUCOSE,BLOOD-poct (STL) Specimen Type: BLOOD Comment: Test Performed by: [id number] Meter #: [id number] Ordering Provider: SILVIA REDDY Report Released Date/Time: Aug 16, 2024 04:45 PM Reporting Lab: [facility]1 [facility] [address] Performing Lab: [facility] #1 [facility] [address] GLUCOSE,BLOOD- poct (STL) 138 mg/dL H 72-Aug 16, 2024 11:52 AM [facility] GLUCOSE,BLOOD-poct (STL) Specimen Type: BLOOD Comment: Test Performed by: [id number] Meter #: [id number] Ordering Provider: SILVIA REDDY Report Released Date/Time: Aug 16, 2024 12:04 PM Reporting Lab: [facility] #1 [facility] [address] Performing Lab: [facility] #1 [facility] [address] GLUCOSE,BLOOD- poct (STL) 135 mg/dL H 72-99 Aug 16, 2024 05:24 AM [facility] GLUCOSE,BLOOD-poct (STL) Specimen Type: BLOOD Comment: Test Performed by: [id number] Meter #: [id number] Ordering Provider: SILVIA REDDY Report Released Date/Time: Aug 16, 2024 05:38 AM Reporting Lab: [facility]1 [facility] [address] Performing Lab: [facility] #1 [facility] [address] GLUCOSE,BLOOD- poct (STL) 151 mg/dL H Aug 15, 2024 07:31 PM [facility] GLUCOSE,BLOOD-poct (STL) Specimen Type: BLOOD Comment: Test Performed by: [id number] Meter #: [id number] Ordering Provider: SILVIA REDDY Report Released Date/Time: Aug 15, 2024 08:07 PM Reporting Lab: [facility]1 [facility] [address] Performing Lab: [facility] #1 [facility] [address] GLUCOSE,BLOOD- poct (STL) 173 mg/dL H Aug 15, 2024 04:18 PM [facility] GLUCOSE,BLOOD-poct (STL) Specimen Type: BLOOD Comment: Test Performed by: [id number] Meter #: [id number] Ordering Provider: SILVIA REDDY Report Released Date/Time: Aug 15, 2024 04:59 PM Reporting Lab: [facility]1 [facility] [address] Performing Lab: [facility] #1 [facility] [address] GLUCOSE,BLOOD- poct (STL) 136 mg/dL H Aug 15, 2024 04:16 PM [facility] GLUCOSE,BLOOD-poct (STL) Specimen Type: BLOOD Comment: Test Performed by: [id number] Meter #: [id number] Ordering Provider: SILVIA REDDY Report Released Date/Time: Aug 15, 2024 04:59 PM Reporting Lab: [facility] #[address] [place] [address] Performing Lab: [facility] #[address] [facility] [address] GLUCOSE,BLOOD- poct (STL) 194 mg/dL H 72-Aug 15, 2024 11:39 AM [facility] GLUCOSE,BLOOD-poct (STL) Specimen Type: BLOOD Comment: Test Performed by: [id number] Meter #: [id number] Ordering Provider: SILVIA REDDY Report Released Date/Time: Aug 15, 2024 12:00 PM Reporting Lab: [facility] #[address] [place] [address] Performing Lab: [facility] #[address] [place] [address] GLUCOSE,BLOOD- poct (STL) 127 mg/dL H -Aug 15, 2024 05:07 AM [facility] GLUCOSE,BLOOD-poct (STL) Specimen Type: BLOOD Comment: Test Performed by: [id number] Meter #: [id number] Ordering Provider: SILVIA REDDY Report Released Date/Time: Aug 15, 2024 06:14 AM Reporting Lab: [facility] [place] [address] Performing Lab: [facility] #[address] [place] [address] GLUCOSE,BLOOD- poct (STL) 151 mg/dL H -Aug 14, 2024 04:22 PM [facility] GLUCOSE,BLOOD-poct (STL) Specimen Type: BLOOD Comment: Test Performed by: [id number] Meter #: [id number] Ordering Provider: SILVIA REDDY Report Released Date/Time: Aug 14, 2024 04:52 PM Reporting Lab: [facility]1 [facility] [address] Performing Lab: [facility] #1 [facility] [address] GLUCOSE,BLOOD- poct (STL) 129 mg/dL H 72-99 Aug 14, 2024 11:21 AM [facility] GLUCOSE,BLOOD-poct (STL) Specimen Type: BLOOD Comment: Test Performed by: [id number] Meter #: [id number] Ordering Provider: SILVIA REDDY Report Released Date/Time: Aug 14, 2024 11:37 AM Reporting Lab: [facility] #1 [facility] [address] Performing Lab: [facility] #[address] [facility] [address] GLUCOSE,BLOOD- poct (STL) 135 mg/dL H 72-Aug 14, 2024 06:59 AM [facility] QUANTIFERON-TB,4 TUBE Specimen Type: BLOOD [...] For additional information, please refer to http://education. [employer]/faq/BEC059 (This link is being provided for information/ educational purposes only.) Test Performed by [employer], [employer] [facility], [address] [place] [address] Tommie Garcia M.D., Ph.D., Director of Laboratories , [facility] [id number] Ordering Provider: SILVIA REDDY Report Released Date/Time: Aug 11, 2024 03:58 PM Reporting Lab: [facility] [address] [facility] [address] Performing Lab: [facility] [id number] [place] [address] .NIL - QUANTIFERON 0.04 [IU]/mL .MITOGEN-NIL 0.39 [IU]/mL .QUANTIFERON INDETERMINATE NEGATIVE .TB1-NIL <0.00 [IU]/mL .TB2-NIL <0.00 [IU]/mL Aug 14, 2024 06:59 AM [facility] MAGNESIUM Specimen Type: PLASMA Comment: No hemolysis noted. Ordering Provider: SILVIA REDDY Report Released Date/Time: Aug 11, 2024 03:58 PM Reporting Lab: [facility] [address] [facility] [address] Performing Lab: [facility] [facility] [address] MAGNESIUM 1.9 mg/dL 1.6-2.6 Aug 14, 2024 06:59 AM [facility] B12 Specimen Type: SERUM No comment entered. Ordering Provider: SILVIA REDDY Report Released Date/Time: Aug 11, 2024 03:58 PM Reporting Lab: [facility] [facility] [id number] Performing Lab: [facility] [facility] [phone] B12 757 pg/mL 213-816 Aug 14, 2024 06:59 AM [facility] COMPREHENSIVE METABOLIC PANEL Specimen Type: PLASMA Comment: No hemolysis noted. Ordering Provider: SILVIA REDDY Report Released Date/Time: Aug 11, 2024 03:58 PM Reporting Lab: [facility] [facility] [id number] Performing Lab: [facility] [facility] [address] CREATININE 0.75 mg/dL 0.70-1.30 UREA NITROGEN 13.6 [...] 95.88 >60 Aug 14, 2024 06:59 AM [facility] CBC Specimen Type: BLOOD No comment entered. Ordering Provider: SILVIA REDDY Report Released Date/Time: Aug 11, 2024 03:58 PM Reporting Lab: [facility]1 [facility] [address] Performing Lab: [facility]1 [facility] [address] WBC 4.1 10*3/uL 3.6-11.2 RBC 3.20 10*6/uL [...] Aug 14, 2024 06:59 AM [facility] [place]OLATE ([facility] Specimen Type: SERUM No comment entered. Ordering Provider: SILVIA REDDY Report Released Date/Time: Aug 11, 2024 03:58 PM Reporting Lab: [facility] #1 [place] [address] Performing Lab: [facility] [place] [address] FOLATE ([facility]) 6.8 ng/mL L 7-20 Aug 14, 2024 06:59 AM [facility] VITAMIN D, 25-HYDROXY Specimen Type: SERUM No comment entered. Ordering Provider: SILVIA REDDY Report Released Date/Time: Aug 11, 2024 03:58 PM Reporting Lab: [facility]1 [place] [address] Performing Lab: [facility] [place] [address] VITAMIN D, 25-HYDROXY 8.9 ng/mL L 30-96 Aug 14, 2024 05:08 AM [facility] GLUCOSE,BLOOD-poct ([facility]) Specimen Type: BLOOD Comment: Test Performed by: [id number] Meter #: [id number] Ordering Provider: SILVIA REDDY Report Released Date/Time: Aug 14, 2024 05:52 AM Reporting Lab: [facility]1 [place] [address] Performing Lab: [facility] [place] [address] GLUCOSE,BLOOD- poct (L) 135 mg/dL H 72-99 Aug 13, 2024 04:27 PM [facility] GLUCOSE,BLOOD-poct ([facility]) Specimen Type: BLOOD Comment: Test Performed by: [id number] Meter #: [id number] Ordering Provider: SILVIA REDDY Report Released Date/Time: Aug 13, 2024 04:41 PM Reporting Lab: [facility] #1 [facility] [address] Performing Lab: [facility] [address] GLUCOSE,BLOOD- poct (STL) 181 mg/dL H -Aug 13, 2024 11:33 AM [facility] GLUCOSE,BLOOD-poct (STL) Specimen Type: BLOOD Comment: Test Performed by: [id number] Meter #: [id number] Ordering Provider: SILVIA REDDY Report Released Date/Time: Aug 13, 2024 03:55 PM Reporting Lab: [facility] [address] Performing Lab: [facility] [place] [address] GLUCOSE,BLOOD- poct (STL) 140 mg/dL H Aug 13, 2024 05:54 AM [facility] GLUCOSE,BLOOD-poct (STL) Specimen Type: BLOOD Comment: Test Performed by: [id number] Meter #: [id number] Ordering Provider: SILVIA REDDY Report Released Date/Time: Aug 13, 2024 06:20 AM Reporting Lab: [facility] #1 [facility] [address] Performing Lab: [facility] #1 [facility] [address] GLUCOSE,BLOOD- poct (STL) 112 mg/dL H Aug 12, 2024 04:35 PM [facility] GLUCOSE,BLOOD-poct (STL) Specimen Type: BLOOD Comment: Test Performed by: [id number] Meter #: [id number] Ordering Provider: SILVIA REDDY Report Released Date/Time: Aug 12, 2024 04:47 PM Reporting Lab: [facility] #1 [facility] [address] Performing Lab: [facility] #1 [facility] [address] GLUCOSE,BLOOD- poct (STL) 128 mg/dL H 72-99 Aug 12, 2024 11:26 AM [facility] GLUCOSE,BLOOD-poct (STL) Specimen Type: BLOOD Comment: Test Performed by: [id number] Meter #: [id number] Ordering Provider: SILVIA REDDY Report Released Date/Time: Aug 12, 2024 11:45 AM Reporting Lab: [facility] #1 [facility] [address] Performing Lab: [facility] #1 [place] [address] GLUCOSE,BLOOD- poct (STL) 188 mg/dL H -Aug 12, 2024 06:13 AM [facility] GLUCOSE,BLOOD-poct (STL) Specimen Type: BLOOD Comment: Test Performed by: [id number] Meter #: [id number] Ordering Provider: SILVIA REDDY Report Released Date/Time: Aug 12, 2024 06:25 AM Reporting Lab: [facility] #1 [facility] [address] Performing Lab: [facility] #1 [facility] [address] GLUCOSE,BLOOD- poct (STL) 116 mg/dL H 72-99 Aug 11, 2024 04:10 PM [facility] GLUCOSE,BLOOD-poct (STL) Specimen Type: BLOOD Comment: Test Performed by: [id number] Meter #: [id number] Ordering Provider: SILVIA REDDY Report Released Date/Time: Aug 11, 2024 04:27 PM Reporting Lab: [facility] #1 [place] [address] Performing Lab: [facility] #1 [facility] [address] GLUCOSE,BLOOD- poct (STL) 184 mg/dL H 72-99 Aug 11, 2024 01:44 PM [facility] MRSA SURVL NARES DNA Specimen Type: [...] Aug 11, 2024 02:03 PM Reporting Lab: [address] [address] Performing Lab: [address] [address] MRSA SURVL NARES DNA Negative Negative Jul 20, 2024 11:18 AM [facility] APTT Specimen Type: PLASMA No comment entered. Ordering Provider: MANUEL BAIRD Report Released Date/Time: Jul 19, 2024 04:00 PM Reporting Lab: [address] [address] Performing Lab: [address] [address] APTT 32.1 s 26.7-39.9 Jul 20, 2024 11:18 AM [facility] PT/INR [place] ([place]) Specimen Type: PLASMA No comment entered. Ordering Provider: MANUEL BAIRD Report Released Date/Time: Jul 19, 2024 04:00 PM Reporting Lab: [address] [address] Performing Lab: [address] [address] PROTIME 14.4 s H 9.4-12.5 INR VALUE 1.3 {INR} Jul 20, 2024 11:18 AM [facility] CBC Specimen Type: BLOOD No comment entered. Ordering Provider: MANUEL BAIRD Report Released Date/Time: Jul 19, 2024 04:00 PM Reporting Lab: [facility] [address] [facility] [address] Performing Lab: [address] [address] WBC 4.7 10*3/uL 3.6-11.2 RBC 4.86 10*6/uL [...] Jul 17, 2024 08:02 AM [facility] BASIC METABOLIC PANEL Specimen Type: PLASMA Comment: No hemolysis noted. Ordering Provider: MARY SERNA Report Released Date/Time: Jun 07, 2024 01:43 PM Reporting Lab: [facility] [address] [place] [address] Performing Lab: [address] [address] CREATININE 0.85 mg/dL 0.7-1.3 UREA NITROGEN 15.2 [...] 09:21 PM 98.4 84 119/62 18 97 [facility] N Aug 14, 2024 08:00 PM 0 [facility] N Aug 14, 2024 10:26 AM 0 [facility] N Aug 14, 2024 09:28 AM 97.7 69 118/68 18 97 [facility] N Aug 14, 2024 05:48 AM 97.7 78 136/87 16 97 [facility] N Advance Directives: [...] Jan 19, 2017 ADVANCE DIRECTIVE DISCUSSION ERICK BARDAELS [facility]
--- OUTSIDE RECORDS SUMMARY | 2024-11-17 04:05 | XMS_ITS ---
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 Date/Time Encounter Type Encounter Description Reason Pro vider Source Aug 14, 2024 09:35 PM Inpatient Visit DAILY HOSPITALIZATION DATA [facility] Encounter Template Text not used by [place] [...] 20 appointments. The data comes from all [facility]. Appointment Date/Time Appointment Type Appointme nt Facility Name Aug 24, 2024 10:00 AM AMBULATORY - MEDICINE [facility] Aug 24, 2024 10:30 AM AMBULATORY - MEDICINE [facility] Aug 30, 2024 09:30 AM AMBULATORY MEDICINE [facility] Aug 31, 2024 01:00 PM AMBULATORY - SURGERY [facility] Sep 21, 2024 01:30 PM AMBULATORY - MEDICINE [facility] Sep 22, 2024 11:00 AM AMBULATORY - MEDICINE [facility] Sep 29, 2024 12:30 PM AMBULATORY - MEDICINE [facility] Oct 02, 2024 09:30 AM AMBULATORY - MEDICINE [facility] Nov 20, 2024 10:30 AM AMBULATORY - SUR[facility]ERY [facility] Nov 21, 2024 10:00 AM AMBULATORY - NONE [facility] Dec 11, 2024 10:30 AM AMBULATORY - MEDICINE [facility] Active, Pending, and Scheduled Orders This section includes a listing of several types of active, pending, and scheduled orders, including clinic medications orders, diagnostic test orders, procedure orders and consult orders; where the start date of the order is 45 days before the date of the Encounter or 45 days after the date of theEncounter. The data comes from all [facility]. Test Date/Time Test Type Test Details Facility Name Aug 02, 2024 12:00 AM Laboratory - Chemistry Order CBC BLOOD STAT SP [facility] Aug 02, 2024 12:00 AM Laboratory - Chemistry Order COMPREHENSIVE METABOLIC PANEL GREEN LI/HEP BLD/PLAS PLASMA SP [facility] Aug 17, 2024 03:47 PM Consult Order [facility] Cons Bedside [facility] Lab Results: +/- 30 days of [...] Range Comment Aug 23, 2024 08:21 AM [facility] MAGNESIUM Specimen Type: PLASMA No comment entered. Ordering Provider: SILVIA REDDY Report Released Date/Time: Aug 22, 2024 11:26 AM Reporting Lab: [facility] [address] Performing Lab: [facility] [address] MAGNESIUM 1.8 mg/dL 1.6-2.6 Aug 23, 2024 08:21 AM [facility] CBC Specimen Type: BLOOD No comment entered. Ordering Provider: SILVIA REDDY Report Released Date/Time: Aug 22, 2024 11:19 AM Reporting Lab: [facility] [address] Performing Lab: [facility] [address] WBC 4.0 10*3/uL 3.6-11.2 RBC 3.65 10*6/uL [...] 10*3/uL 0.00-0.20 Aug 23, 2024 05:12 AM [facility] GLUCOSE,BLOOD-poct (STL) Specimen Type: BLOOD Comment: Test Performed by: [id number] Meter #: [id number] Ordering Provider: SILVIA REDDY Report Released Date/Time: Aug 23, 2024 05:23 AM Reporting Lab: [facility] [address] Performing Lab: [facility] [address] GLUCOSE,BLOOD- poct (STL) 99 mg/dL 72-99 Aug 23, 2024 02:45 AM [facility] OCCULT BLOOD FIT X1 SCREEN Specimen Type: FECES No comment entered. Ordering Provider: SILVIA REDDY Report Released Date/Time: Aug 22, 2024 11:23 AM Reporting Lab: [address] [address] Performing Lab: [address] [address] OCCULT BLOOD (FIT) #1 OF 1 Negative Negative Aug 22, 2024 07:30 PM [facility] OCCULT BLOOD FIT X1 SCREEN Specimen Type: FECES No comment entered. Ordering Provider: SILVIA REDDY Report Released Date/Time: Aug 22, 2024 11:23 AM Reporting Lab: [address] [address] Performing Lab: [address] [address] OCCULT BLOOD (FIT) #1 OF 1 Negative Negative Aug 22, 2024 06:15 PM [facility] OCCULT BLOOD FIT X1 SCREEN Specimen Type: FECES No comment entered. Ordering Provider: SILVIA REDDY Report Released Date/Time: Aug 22, 2024 11:23 AM Reporting Lab: [address] [address] Performing Lab: [facility] [address] [facility] [address] OCCULT BLOOD (FIT) #1 OF 1 Negative Negative Aug 22, 2024 04:24 PM [facility] GLUCOSE,BLOOD-poct (STL) Specimen Type: BLOOD Comment: Test Performed by: [id number] Meter #: [id number] Ordering Provider: SILVIA REDDY Report Released Date/Time: Aug 22, 2024 04:36 PM Reporting Lab: [facility] [address] Performing Lab: [facility] [address] GLUCOSE,BLOOD- poct (STL) 176 mg/dL H -Aug 22, 2024 04:23 PM [facility] GLUCOSE,BLOOD-poct (STL) Specimen Type: BLOOD Comment: Test Performed by: [id number] Meter #: [id number] Ordering Provider: SILVIA REDDY Report Released Date/Time: Aug 22, 2024 04:36 PM Reporting Lab: [facility] [address] Performing Lab: [facility] [address] GLUCOSE,BLOOD- poct (STL) 221 mg/dL H 72-Aug 22, 2024 11:15 AM [facility] GLUCOSE,BLOOD-poct (STL) Specimen Type: BLOOD Comment: Test Performed by: [id number] Meter #: [id number] Ordering Provider: SILVIA REDDY Report Released Date/Time: Aug 22, 2024 11:27 AM Reporting Lab: [facility] [address] Performing Lab: [facility] [address] GLUCOSE,BLOOD- poct (STL) 140 mg/dL H 72-Aug 22, 2024 08:[address] [facility] FERRITIN Specimen Type: SERUM No comment entered. Ordering Provider: JUDIT PERKINS Report Released Date/Time: Aug 18, 2024 11:01 AM Reporting Lab: [facility] [address] [facility] [address] Performing Lab: [facility] [address] [place] [address] FERRITIN 79.50 ng/mL 22-275 Aug 22, 2024 08:03 AM [facility] IRON/TIBC PROFILE Specimen Type: SERUM No comment entered. Ordering Provider: JUDIT PERKINS Report Released Date/Time: Aug 18, 2024 11:01 AM Reporting Lab: [address] [address] Performing Lab: [address] [address] TIBC 283 ug/dL 250-450 TRANSFERRIN 226 mg/dL 163-344 IRON SATURATION 7 L 20-50 IRON 19 ug/dL L 65-175 Aug 22, 2024 08:03 AM [facility] B12 Specimen Type: SERUM No comment entered. Ordering Provider: JUDIT PERKINS Report Released Date/Time: Aug 18, 2024 11:01 AM Reporting Lab: [facility] [address] Performing Lab: [facility] [address] B12 631 pg/mL 213-816 Aug 22, 2024 08:03 AM [facility] CBC Specimen Type: BLOOD No comment entered. Ordering Provider: SILVIA REDDY Report Released Date/Time: Aug 17, 2024 01:18 PM Reporting Lab: [facility] [address] Performing Lab: [facility] [address] WBC 3.5 10*3/uL L 3.6-11.2 RBC 3.23 [...] NRBC% 0 Aug 22, 2024 08:03 AM [facility] COMPREHENSIVE METABOLIC PANEL Specimen Type: PLASMA Comment: No hemolysis noted. Ordering Provider: SILVIA REDDY Report Released Date/Time: Aug 17, 2024 01:18 PM Reporting Lab: [facility] [address] [facility] [address] Performing Lab: [facility] [address] [facility] [address] CREATININE 0.80 mg/dL 0.7-1.3 UREA NITROGEN 9.7 [...] 94.0 >60 Aug 22, 2024 05:03 AM [facility] GLUCOSE,BLOOD-poct (STL) Specimen Type: BLOOD Comment: Test Performed by: [id number] Meter #: [id number] Ordering Provider: SILVIA REDDY Report Released Date/Time: Aug 22, 2024 06:17 AM Reporting Lab: [facility] [address] Performing Lab: [facility] [address] GLUCOSE,BLOOD- poct (STL) 170 mg/dL H 72-Aug 21, 2024 04:32 PM [facility] GLUCOSE,BLOOD-poct (STL) Specimen Type: BLOOD Comment: Test Performed by: [id number] Meter #: [id number] Ordering Provider: SILVIA REDDY Report Released Date/Time: Aug 21, 2024 04:49 PM Reporting Lab: [facility] [address] Performing Lab: [facility] [address] GLUCOSE,BLOOD- poct (STL) 169 mg/dL H 72-99 Aug 21, 2024 11:53 AM [facility] GLUCOSE,BLOOD-poct (STL) Specimen Type: BLOOD Comment: Test Performed by: [id number] Meter #: [id number] Ordering Provider: SILVIA REDDY Report Released Date/Time: Aug 21, 2024 12:11 PM Reporting Lab: [facility] [address] Performing Lab: [facility] [address] GLUCOSE,BLOOD- poct (STL) 149 mg/dL H 72-99 Aug 21, 2024 05:10 AM [facility] GLUCOSE,BLOOD-poct (STL) Specimen Type: BLOOD Comment: Test Performed by: [id number] Meter #: [id number] Ordering Provider: SILVIA REDDY Report Released Date/Time: Aug 21, 2024 05:27 AM Reporting Lab: [facility] [place] [address] Performing Lab: [facility] [address] [place] [phone] GLUCOSE,BLOOD- poct (STL) 118 mg/dL H 72-99 Aug 20, 2024 04:38 PM [facility] GLUCOSE,BLOOD-poct (STL) Specimen Type: BLOOD Comment: Test Performed by: [id number] Meter #: [id number] Ordering Provider: SILVIA REDDY Report Released Date/Time: Aug 21, 2024 01:55 AM Reporting Lab: [facility] [address] [place] [address] Performing Lab: [facility] [address] [place] [address] GLUCOSE,BLOOD- poct (STL) 169 mg/dL H 72-Aug 20, 2024 04:36 PM [facility] GLUCOSE,BLOOD-poct (STL) Specimen Type: BLOOD Comment: Test Performed by: [id number] Meter #: [id number] Ordering Provider: SILVIA REDDY Report Released Date/Time: Aug 21, 2024 01:55 AM Reporting Lab: [facility] [place] [address] Performing Lab: [facility] [place] [address] GLUCOSE,BLOOD- poct (STL) 395 mg/dL H 72-99 Aug 20, 2024 11:45 AM [facility] GLUCOSE,BLOOD-poct (STL) Specimen Type: BLOOD Comment: Test Performed by: [id number] Meter #: [id number] Ordering Provider: SILVIA REDDY Report Released Date/Time: Aug 20, 2024 11:56 AM Reporting Lab: [facility] [address] Performing Lab: [facility] [address] GLUCOSE,BLOOD- poct (STL) 169 mg/dL H 72-Aug 20, 2024 05:06 AM [facility] GLUCOSE,BLOOD-poct (STL) Specimen Type: BLOOD Comment: Test Performed by: [id number] Meter #: [id number] Ordering Provider: SILVIA REDDY Report Released Date/Time: Aug 20, 2024 06:05 AM Reporting Lab: [facility] [address] Performing Lab: [facility] [address] GLUCOSE,BLOOD- poct (STL) 115 mg/dL H 72-Aug 19, 2024 04:23 PM [facility] GLUCOSE,BLOOD-poct (STL) Specimen Type: BLOOD Comment: Test Performed by: [id number] Meter #: [id number] Ordering Provider: SILVIA REDDY Report Released Date/Time: Aug 19, 2024 05:54 PM Reporting Lab: [facility] [address] Performing Lab: [facility] [address] GLUCOSE,BLOOD- poct (STL) 137 mg/dL H 72-99 Aug 19, 2024 11:28 AM [facility] GLUCOSE,BLOOD-poct (STL) Specimen Type: BLOOD Comment: Test Performed by: [id number] Meter #: [id number] Ordering Provider: SILVIA REDDY Report Released Date/Time: Aug 19, 2024 11:51 AM Reporting Lab: [facility] [address] Performing Lab: [facility] [address] GLUCOSE,BLOOD- poct (STL) 190 mg/dL H 72-99 Aug 19, 2024 05:21 AM [facility] GLUCOSE,BLOOD-poct (STL) Specimen Type: BLOOD Comment: Test Performed by: [id number] Meter #: [id number] Ordering Provider: SILVIA REDDY Report Released Date/Time: Aug 19, 2024 05:56 AM Reporting Lab: [facility] [address] Performing Lab: [facility] [address] GLUCOSE,BLOOD- poct (STL) 130 mg/dL H Aug 18, 2024 04:49 PM [facility] GLUCOSE,BLOOD-poct (STL) Specimen Type: BLOOD Comment: Test Performed by: [id number] Meter #: [id number] Ordering Provider: SILVIA REDDY Report Released Date/Time: Aug 18, 2024 05:01 PM Reporting Lab: [facility] [address] Performing Lab: [facility] [address] GLUCOSE,BLOOD- poct (STL) 129 mg/dL H Aug 18, 2024 11:23 AM [facility] GLUCOSE,BLOOD-poct (STL) Specimen Type: BLOOD Comment: Test Performed by: [id number] Meter #: [id number] Ordering Provider: SILVIA REDDY Report Released Date/Time: Aug 18, 2024 11:41 AM Reporting Lab: [facility] [address] Performing Lab: [facility] [address] GLUCOSE,BLOOD- poct (STL) 180 mg/dL H Aug 18, 2024 05:08 AM [facility] GLUCOSE,BLOOD-poct (STL) Specimen Type: BLOOD Comment: Test Performed by: [id number] Meter #: [id number] Ordering Provider: SILVIA REDDY Report Released Date/Time: Aug 18, 2024 05:31 AM Reporting Lab: [facility] [place] [address] Performing Lab: [facility] [address] GLUCOSE,BLOOD- poct (STL) 127 mg/dL H -Aug 17, 2024 07:32 PM [facility] GLUCOSE,BLOOD-poct (STL) Specimen Type: BLOOD Comment: Test Performed by: [id number] Meter #: [id number] Ordering Provider: SILVIA REDDY Report Released Date/Time: Aug 17, 2024 07:59 PM Reporting Lab: [facility] [place] [address] Performing Lab: [facility] [place] [address] GLUCOSE,BLOOD- poct (STL) 154 mg/dL H -Aug 17, 2024 04:24 PM [facility] GLUCOSE,BLOOD-poct (STL) Specimen Type: BLOOD Comment: Test Performed by: [id number] Meter #: [id number] Ordering Provider: SILVIA REDDY Report Released Date/Time: Aug 17, 2024 04:35 PM Reporting Lab: [facility] [place] [address] Performing Lab: [facility] [place] [address] GLUCOSE,BLOOD- poct (STL) 178 mg/dL H -Aug 17, 2024 05:09 AM [facility] GLUCOSE,BLOOD-poct (STL) Specimen Type: BLOOD Comment: Test Performed by: [id number] Meter #: [id number] Ordering Provider: SILVIA REDDY Report Released Date/Time: Aug 17, 2024 05:54 AM Reporting Lab: [facility] [address] Performing Lab: [facility] [address] GLUCOSE,BLOOD- poct (STL) 124 mg/dL H 72-Aug 16, 2024 07:40 PM [facility] GLUCOSE,BLOOD-poct (STL) Specimen Type: BLOOD Comment: Test Performed by: [id number] Meter #: [id number] Ordering Provider: SILVIA REDDY Report Released Date/Time: Aug 16, 2024 08:28 PM Reporting Lab: [facility] [address] Performing Lab: [facility] [address] GLUCOSE,BLOOD- poct (STL) 144 mg/dL H -Aug 16, 2024 04:19 PM [facility] GLUCOSE,BLOOD-poct (STL) Specimen Type: BLOOD Comment: Test Performed by: [id number] Meter #: [id number] Ordering Provider: SILVIA REDDY Report Released Date/Time: Aug 16, 2024 04:45 PM Reporting Lab: [facility] [address] Performing Lab: [facility] [address] GLUCOSE,BLOOD- poct (STL) 138 mg/dL H 72-Aug 16, 2024 11:52 AM [facility] GLUCOSE,BLOOD-poct (STL) Specimen Type: BLOOD Comment: Test Performed by: [id number] Meter #: [id number] Ordering Provider: SILVIA REDDY Report Released Date/Time: Aug 16, 2024 12:04 PM Reporting Lab: [facility] [address] Performing Lab: [facility] [address] GLUCOSE,BLOOD- poct (STL) 135 mg/dL H 72-99 Aug 16, 2024 05:24 AM [facility] GLUCOSE,BLOOD-poct (STL) Specimen Type: BLOOD Comment: Test Performed by: [id number] Meter #: [id number] Ordering Provider: SILVIA REDDY Report Released Date/Time: Aug 16, 2024 05:38 AM Reporting Lab: [facility] [address] Performing Lab: [facility] [address] GLUCOSE,BLOOD- poct (STL) 151 mg/dL H Aug 15, 2024 07:31 PM [facility] GLUCOSE,BLOOD-poct (STL) Specimen Type: BLOOD Comment: Test Performed by: [id number] Meter #: [id number] Ordering Provider: SILVIA REDDY Report Released Date/Time: Aug 15, 2024 08:07 PM Reporting Lab: [facility] [address] Performing Lab: [facility] [address] GLUCOSE,BLOOD- poct (STL) 173 mg/dL H Aug 15, 2024 04:18 PM [facility] GLUCOSE,BLOOD-poct (STL) Specimen Type: BLOOD Comment: Test Performed by: [id number] Meter #: [id number] Ordering Provider: SILVIA REDDY Report Released Date/Time: Aug 15, 2024 04:59 PM Reporting Lab: [facility] [address] Performing Lab: [facility] [address] GLUCOSE,BLOOD- poct (STL) 136 mg/dL H Aug 15, 2024 04:16 PM [facility] GLUCOSE,BLOOD-poct (STL) Specimen Type: BLOOD Comment: Test Performed by: [id number] Meter #: [id number] Ordering Provider: SILVIA REDDY Report Released Date/Time: Aug 15, 2024 04:59 PM Reporting Lab: [facility] [place] [address] Performing Lab: [facility] [address] GLUCOSE,BLOOD- poct (STL) 194 mg/dL H 72-Aug 15, 2024 11:39 AM [facility] GLUCOSE,BLOOD-poct (STL) Specimen Type: BLOOD Comment: Test Performed by: [id number] Meter #: [id number] Ordering Provider: SILVIA REDDY Report Released Date/Time: Aug 15, 2024 12:00 PM Reporting Lab: [facility] [place] [address] Performing Lab: [facility] [place] [address] GLUCOSE,BLOOD- poct (STL) 127 mg/dL H -Aug 15, 2024 05:07 AM [facility] GLUCOSE,BLOOD-poct (STL) Specimen Type: BLOOD Comment: Test Performed by: [id number] Meter #: [id number] Ordering Provider: SILVIA REDDY Report Released Date/Time: Aug 15, 2024 06:14 AM Reporting Lab: [facility] [place] [address] Performing Lab: [facility] [place] [address] GLUCOSE,BLOOD- poct (STL) 151 mg/dL H -Aug 14, 2024 04:22 PM [facility] GLUCOSE,BLOOD-poct (STL) Specimen Type: BLOOD Comment: Test Performed by: [id number] Meter #: [id number] Ordering Provider: SILVIA REDDY Report Released Date/Time: Aug 14, 2024 04:52 PM Reporting Lab: [facility] [address] Performing Lab: [facility] [address] GLUCOSE,BLOOD- poct (STL) 129 mg/dL H 72-99 Aug 14, 2024 11:21 AM [facility] GLUCOSE,BLOOD-poct (STL) Specimen Type: BLOOD Comment: Test Performed by: [id number] Meter #: [id number] Ordering Provider: SILVIA REDDY Report Released Date/Time: Aug 14, 2024 11:37 AM Reporting Lab: [facility] [address] Performing Lab: [facility] [address] GLUCOSE,BLOOD- poct (STL) 135 mg/dL H 72-Aug 14, 2024 06:59 AM [facility] QUANTIFERON-TB,4 TUBE Specimen Type: BLOOD Comment: [...] For additional information, please refer to http://education. Maptia/faq/XOJ118 (This link is being provided for information/ educational purposes only.) Test Performed by [employer], [employer] [facility], [address] [place] [address] Tommie Garcia M.D., Ph.D., Director of Laboratories , [facility] [id number] Ordering Provider: SILVIA REDDY Report Released Date/Time: Aug 11, 2024 03:58 PM Reporting Lab: [facility] [address] [facility] [address] Performing Lab: [facility] [id number] [place] [address] .NIL - QUANTIFERON 0.04 [IU]/mL .MITOGEN-NIL 0.39 [IU]/mL .QUANTIFERON INDETERMINATE NEGATIVE .TB1-NIL <0.00 [IU]/mL .TB2-NIL <0.00 [IU]/mL Aug 14, 2024 06:59 AM [facility] MAGNESIUM Specimen Type: PLASMA Comment: No hemolysis noted. Ordering Provider: SILVIA REDDY Report Released Date/Time: Aug 11, 2024 03:58 PM Reporting Lab: [facility] [address] Performing Lab: [facility] [address] MAGNESIUM 1.9 mg/dL 1.6-2.6 Aug 14, 2024 06:59 AM [facility] FOLATE (STL-MA) Specimen Type: SERUM No comment entered. Ordering Provider: SILVIA REDDY Report Released Date/Time: Aug 11, 2024 03:58 PM Reporting Lab: [facility] [address] Performing Lab: [facility] [address] FOLATE (STL-MA) 6.8 ng/mL L 7-20 Aug 14, 2024 06:59 AM [facility] VITAMIN D, 25-HYDROXY Specimen Type: SERUM No comment entered. Ordering Provider: SILVIA REDDY Report Released Date/Time: Aug 11, 2024 03:58 PM Reporting Lab: [facility] [address] Performing Lab: [facility] [address] VITAMIN D, 25-HYDROXY 8.9 ng/mL L 30-96 Aug 14, 2024 06:59 AM [facility] B12 Specimen Type: SERUM No comment entered. Ordering Provider: SILVIA REDDY Report Released Date/Time: Aug 11, 2024 03:58 PM Reporting Lab: [facility] [address] Performing Lab: [facility] [place] [id number] B12 757 pg/mL 213-816 Aug 14, 2024 06:59 AM [facility] COMPREHENSIVE METABOLIC PANEL Specimen Type: PLASMA Comment: No hemolysis noted. Ordering Provider: SILVIA REDDY Report Released Date/Time: Aug 11, 2024 03:58 PM Reporting Lab: [facility] [id number] Performing Lab: [facility] [address] CREATININE 0.75 mg/dL 0.70-1.30 UREA NITROGEN 13.6 [...] 95.88 >60 Aug 14, 2024 06:59 AM [facility] CBC Specimen Type: BLOOD No comment entered. Ordering Provider: SILVIA REDDY Report Released Date/Time: Aug 11, 2024 03:58 PM Reporting Lab: [facility] [id number] Performing Lab: [facility] [id number] WBC 4.1 10*3/uL 3.6-11.2 RBC 3.20 10*6/uL [...] 10*3/uL 0.00-0.20 Aug 14, 2024 05:08 AM [facility] GLUCOSE,BLOOD-poct (STL) Specimen Type: BLOOD Comment: Test Performed by: [id number] Meter #: [id number] Ordering Provider: SILVIA REDDY Report Released Date/Time: Aug 14, 2024 05:52 AM Reporting Lab: [facility] [phone] Performing Lab: [facility] [address] GLUCOSE,BLOOD- poct (STL) 135 mg/dL H 72-99 Aug 13, 2024 04:27 PM [facility] GLUCOSE,BLOOD-poct (STL) Specimen Type: BLOOD Comment: Test Performed by: [id number] Meter #: [id number] Ordering Provider: SILVIA REDDY Report Released Date/Time: Aug 13, 2024 04:41 PM Reporting Lab: [facility] [phone] Performing Lab: [facility] [phone] GLUCOSE,BLOOD- poct (STL) 181 mg/dL H -Aug 13, 2024 11:33 AM [facility] GLUCOSE,BLOOD-poct (STL) Specimen Type: BLOOD Comment: Test Performed by: [id number] Meter #: [id number] Ordering Provider: SILVIA REDDY Report Released Date/Time: Aug 13, 2024 03:55 PM Reporting Lab: [facility] [address] Performing Lab: [facility] [place] [address] GLUCOSE,BLOOD- poct (STL) 140 mg/dL H Aug 13, 2024 05:54 AM [facility] GLUCOSE,BLOOD-poct (STL) Specimen Type: BLOOD Comment: Test Performed by: [id number] Meter #: [id number] Ordering Provider: SILVIA REDDY Report Released Date/Time: Aug 13, 2024 06:20 AM Reporting Lab: [facility] [address] Performing Lab: [facility] [address] GLUCOSE,BLOOD- poct (STL) 112 mg/dL H Aug 12, 2024 04:35 PM [facility] GLUCOSE,BLOOD-poct (STL) Specimen Type: BLOOD Comment: Test Performed by: [id number] Meter #: [id number] Ordering Provider: SILVIA REDDY Report Released Date/Time: Aug 12, 2024 04:47 PM Reporting Lab: [facility] [address] Performing Lab: [facility] [address] GLUCOSE,BLOOD- poct (STL) 128 mg/dL H 72-99 Aug 12, 2024 11:26 AM [facility] GLUCOSE,BLOOD-poct (STL) Specimen Type: BLOOD Comment: Test Performed by: [id number] Meter #: [id number] Ordering Provider: SILVIA REDDY Report Released Date/Time: Aug 12, 2024 11:45 AM Reporting Lab: [facility] [address] Performing Lab: [facility] [place] [address] GLUCOSE,BLOOD- poct (STL) 188 mg/dL H -Aug 12, 2024 06:13 AM [facility] GLUCOSE,BLOOD-poct (STL) Specimen Type: BLOOD Comment: Test Performed by: [id number] Meter #: [id number] Ordering Provider: SILVIA REDDY Report Released Date/Time: Aug 12, 2024 06:25 AM Reporting Lab: [facility] [address] Performing Lab: [facility] [address] GLUCOSE,BLOOD- poct (STL) 116 mg/dL H 72-99 Aug 11, 2024 04:10 PM [facility] GLUCOSE,BLOOD-poct (STL) Specimen Type: BLOOD Comment: Test Performed by: [id number] Meter #: [id number] Ordering Provider: SILVIA REDDY Report Released Date/Time: Aug 11, 2024 04:27 PM Reporting Lab: [facility] [place] [address] Performing Lab: [facility] [address] GLUCOSE,BLOOD- poct (STL) 184 mg/dL H 72-99 Aug 11, 2024 01:44 PM [facility] MRSA SURVL NARES DNA Specimen Type: [...] Aug 11, 2024 02:03 PM Reporting Lab: [address] [address] Performing Lab: [address] [address] MRSA SURVL NARES DNA Negative Negative Jul 20, 2024 11:18 AM [facility] APTT Specimen Type: PLASMA No comment entered. Ordering Provider: MANUEL BAIRD Report Released Date/Time: Jul 19, 2024 04:00 PM Reporting Lab: [address] [address] Performing Lab: [address] [address] APTT 32.1 s 26.7-39.9 Jul 20, 2024 11:18 AM [facility] PT/INR [place] ([place]) Specimen Type: PLASMA No comment entered. Ordering Provider: MANUEL BAIRD Report Released Date/Time: Jul 19, 2024 04:00 PM Reporting Lab: [address] [address] Performing Lab: [address] [address] PROTIME 14.4 s H 9.4-12.5 INR VALUE 1.3 {INR} Jul 20, 2024 11:18 AM [facility] CBC Specimen Type: BLOOD No comment entered. Ordering Provider: MANUEL BAIRD Report Released Date/Time: Jul 19, 2024 04:00 PM Reporting Lab: [facility] [address] [facility] [address] Performing Lab: [address] [address] WBC 4.7 10*3/uL 3.6-11.2 RBC 4.86 10*6/uL [...] 1.6 1.0-7.0 Jul 17, 2024 08:02 AM [facility] BASIC METABOLIC PANEL Specimen Type: PLASMA Comment: No hemolysis noted. Ordering Provider: MARY SERNA Report Released Date/Time: Jun 07, 2024 01:43 PM Reporting Lab: [facility] [address] [place] [phone] Performing Lab: [address] [address] CREATININE 0.85 mg/dL 0.7-1.3 UREA NITROGEN 15.2 [...] 09:21 PM 98.4 84 119/62 18 97 [facility] Aug 14, 2024 08:00 PM 0 [facility] Aug 14, 2024 10:26 AM 0 [facility] Aug 14, 2024 09:28 AM 97.7 69 118/68 18 97 [facility] Aug 14, 2024 05:48 AM 97.7 78 136/87 16 97 [facility] Advance Directives: [...] 19, 2017 ADVANCE DIRECTIVE DISCUSSION ERICK BARDALES [facility]
--- OUTSIDE RECORDS SUMMARY | 2024-11-17 04:05 | XMS_ITS | Encounter Summary ---
Author Name [facility] [place] Address [address] [place] [address] Care Team Providers Care Motor Polarizer Name Role Phone MANUEL BAIRD Primary Care [...] PART A Apr 08, 2017 PART A [id number] [phone] ASHLEY WALKER PATIENT Selected Encounter This section includes the information on record at [place] for the Encounter. 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 This section includes future appointments and future orders which are active, pending or scheduled. Future Appointments This section includes appointments that were scheduled to occur 6 months from the date of the Encounter, up to a maximum of 20 appointments. The data comes from all [facility]. Appointment Date/Time Appointment Type Appointme nt Facility Name Aug 24, 2024 10:00 AM AMBULATORY - MEDICINE [facility] Aug 24, 2024 10:30 AM AMBULATORY MEDICINE [facility] Aug 30, 2024 09:30 AM [facility] MEDIC[facility] Aug 31, 2024 01:00 PM AMBULATORY - SURGERY [facility] Sep 21, 2024 01:30 PM AMBULATORY MEDICINE [facility] Sep 22, 2024 11:00 AM AMBULATORY - MEDICINE [facility] Sep 29, 2024 12:30 PM AMBULATORY - MEDICINE [facility] Oct 02, 2024 09:30 AM AMBULATORY MEDICINE [facility] Nov 20, 2024 10:30 AM AMBULATORY - SURGERY [facility] Nov 21, 2024 10:00 AM AMBULATORY - NONE [facility] Dec 11, 2024 10:30 [...] of theEncounter. The data comes from all [facility]. Test Date/Time Test Type Test Details Facility Name Aug 02, 2024 12:00 AM Laboratory - Chemistry Order CBC BLOOD STAT SP [facility] Aug 02, 2024 12:00 AM Laboratory - Chemistry Order COMPREHENSIVE METABOLIC PANEL GREEN LI/HEP BLD/PLAS PLASMA SP [facility] Aug 17, 2024 03:47 PM Consult Order [facility] Cons Bedside [facility] [...] Aug 22, 2024 11:26 AM Reporting Lab: [facility] [facility] [address] Performing Lab: [facility] [address] MAGNESIUM 1.8 mg/dL 1.6-2.6 Aug 23, 2024 08:21 AM [facility] CBC Specimen Type: BLOOD No comment entered. Ordering Provider: SILVIA REDDY Report Released Date/Time: Aug 22, 2024 11:19 AM Reporting Lab: [facility] [address] Performing Lab: [facility] [address] WBC 4.0 10*3/uL 3.6-11.2 RBC 3.65 10*6/uL [...] 10*3/uL 0.00-0.20 Aug 23, 2024 05:12 AM [facility] GLUCOSE,BLOOD-poct (STL) Specimen Type: BLOOD Comment: Test Performed by: [id number] Meter #: [id number] Ordering Provider: SILVIA REDDY Report Released Date/Time: Aug 23, 2024 05:23 AM Reporting Lab: [facility] [address] Performing Lab: [facility] [address] GLUCOSE,BLOOD- poct (STL) 99 mg/dL 72-99 Aug 23, 2024 02:45 AM [facility] OCCULT BLOOD FIT X1 SCREEN Specimen Type: FECES No comment entered. Ordering Provider: SILVIA REDDY Report Released Date/Time: Aug 22, 2024 11:23 AM Reporting Lab: [address] [address] Performing Lab: [address] [address] OCCULT BLOOD (FIT) #1 OF 1 Negative Negative Aug 22, 2024 07:30 PM [facility] OCCULT BLOOD FIT X1 SCREEN Specimen Type: FECES No comment entered. Ordering Provider: SILVIA REDDY Report Released Date/Time: Aug 22, 2024 11:23 AM Reporting Lab: [address] [address] Performing Lab: [address] [address] OCCULT BLOOD (FIT) #1 OF 1 Negative Negative Aug 22, 2024 06:15 PM [facility] OCCULT BLOOD FIT X1 SCREEN Specimen Type: FECES No comment entered. Ordering Provider: SILVIA REDDY Report Released Date/Time: Aug 22, 2024 11:23 AM Reporting Lab: [address] [address] Performing Lab: [address] [address] OCCULT BLOOD (FIT) #1 OF 1 Negative Negative Aug 22, 2024 04:24 PM [facility] GLUCOSE,BLOOD-poct (STL) Specimen Type: BLOOD Comment: Test Performed by: [id number] Meter #: [id number] Ordering Provider: SILVIA REDDY Report Released Date/Time: Aug 22, 2024 04:36 PM Reporting Lab: [facility] [facility] [address] Performing Lab: [facility] [facility] [address] GLUCOSE,BLOOD- poct (STL) 176 mg/dL H 72-99 Aug 22, 2024 04:23 PM [facility] GLUCOSE,BLOOD-poct (STL) Specimen Type: BLOOD Comment: Test Performed by: [id number] Meter #: [id number] Ordering Provider: SILVIA REDDY Report Released Date/Time: Aug 22, 2024 04:36 PM Reporting Lab: [facility] [facility] [address] Performing Lab: [facility] [facility] [address] GLUCOSE,BLOOD- poct (STL) 221 mg/dL H 72-99 Aug 22, 2024 11:15 AM [facility] GLUCOSE,BLOOD-poct (STL) Specimen Type: BLOOD Comment: Test Performed by: [id number] Meter #: [id number] Ordering Provider: SILVIA REDDY Report Released Date/Time: Aug 22, 2024 11:27 AM Reporting Lab: [facility] [facility] [address] Performing Lab: [facility] [facility] [address] GLUCOSE,BLOOD- poct (STL) 140 mg/dL H 72-99 Aug 22, 2024 08:03 AM [facility] FERRITIN Specimen Type: SERUM No comment entered. Ordering Provider: JUDIT PERKINS Report Released Date/Time: Aug 18, 2024 11:01 AM Reporting Lab: [facility] [address] [facility] [address] Performing Lab: [facility] [address] [facility] [address] FERRITIN 79.50 ng/mL 22-275 Aug 22, 2024 08:03 AM [facility] CBC Specimen Type: BLOOD No comment entered. Ordering Provider: SILVIA REDDY Report Released Date/Time: Aug 17, 2024 01:18 PM Reporting Lab: [facility] [facility] [address] Performing Lab: [facility] [facility] [address] WBC 3.5 10*3/uL L 3.6-11.2 RBC 3.23 [...] NRBC% 0 Aug 22, 2024 08:03 AM [facility] COMPREHENSIVE METABOLIC PANEL Specimen Type: PLASMA Comment: No hemolysis noted. Ordering Provider: SILVIA REDDY Report Released Date/Time: Aug 17, 2024 01:18 PM Reporting Lab: [facility] [address] [facility] [address] Performing Lab: [address] [address] CREATININE 0.80 mg/dL 0.7-1.3 UREA NITROGEN 9.7 [...] Aug 18, 2024 11:01 AM Reporting Lab: [facility] [address] [facility] [address] Performing Lab: [place] [id number] [facility] [address] TIBC 283 ug/dL 250-450 TRANSFERRIN 226 mg/dL 163-344 IRON SATURATION 7 L 20-50 IRON 19 ug/dL L 65-175 Aug 22, 2024 08:03 AM [facility] B12 Specimen Type: SERUM No comment entered. Ordering Provider: JUDIT PERKINS Report Released Date/Time: Aug 18, 2024 11:01 AM Reporting Lab: [facility] [facility] [address] Performing Lab: [facility] [facility] [address] B12 631 pg/mL 213-816 Aug 22, 2024 05:03 AM [facility] GLUCOSE,BLOOD-poct (STL) Specimen Type: BLOOD Comment: Test Performed by: [id number] Meter #: [id number] Ordering Provider: SILVIA REDDY Report Released Date/Time: Aug 22, 2024 06:17 AM Reporting Lab: [facility] [facility] [address] Performing Lab: [facility] [facility] [address] GLUCOSE,BLOOD- poct (STL) 170 mg/dL H 72-99 Aug 21, 2024 04:32 PM [facility] GLUCOSE,BLOOD-poct (STL) Specimen Type: BLOOD Comment: Test Performed by: [id number] Meter #: [id number] Ordering Provider: SILVIA REDDY Report Released Date/Time: Aug 21, 2024 04:49 PM Reporting Lab: [facility] [facility] [address] Performing Lab: [facility] [facility] [address] GLUCOSE,BLOOD- poct (STL) 169 mg/dL H 72-99 Aug 21, 2024 11:53 AM [facility] GLUCOSE,BLOOD-poct (STL) Specimen Type: BLOOD Comment: Test Performed by: [id number] Meter #: [id number] Ordering Provider: SILVIA REDDY Report Released Date/Time: Aug 21, 2024 12:11 PM Reporting Lab: [facility] [facility] [address] Performing Lab: [facility] [facility] [address] GLUCOSE,BLOOD- poct (STL) 149 mg/dL H -Aug 21, 2024 05:10 AM [facility] GLUCOSE,BLOOD-poct (STL) Specimen Type: BLOOD Comment: Test Performed by: [id number] Meter #: [id number] Ordering Provider: SILVIA REDDY Report Released Date/Time: Aug 21, 2024 05:27 AM Reporting Lab: [facility] [facility] [address] Performing Lab: [facility] [facility] [address] GLUCOSE,BLOOD- poct (STL) 118 mg/dL H -Aug 20, 2024 04:38 PM [facility] GLUCOSE,BLOOD-poct (STL) Specimen Type: BLOOD Comment: Test Performed by: [id number] Meter #: [id number] Ordering Provider: SILVIA REDDY Report Released Date/Time: Aug 21, 2024 01:55 AM Reporting Lab: [facility] [facility] [address] Performing Lab: [facility] [facility] [address] GLUCOSE,BLOOD- poct (STL) 169 mg/dL H -Aug 20, 2024 04:36 PM [facility] GLUCOSE,BLOOD-poct (STL) Specimen Type: BLOOD Comment: Test Performed by: [id number] Meter #: [id number] Ordering Provider: SILVIA REDDY Report Released Date/Time: Aug 21, 2024 01:55 AM Reporting Lab: [facility] [facility] [address] Performing Lab: [facility] [facility] [address] GLUCOSE,BLOOD- poct (STL) 395 mg/dL H 72-Aug 20, 2024 11:45 AM [facility] GLUCOSE,BLOOD-poct (STL) Specimen Type: BLOOD Comment: Test Performed by: [id number] Meter #: [id number] Ordering Provider: SILVIA REDDY Report Released Date/Time: Aug 20, 2024 11:56 AM Reporting Lab: [facility] [facility] [address] Performing Lab: [facility] [address] GLUCOSE,BLOOD- poct (STL) 169 mg/dL H Aug 20, 2024 05:06 AM [facility] GLUCOSE,BLOOD-poct (STL) Specimen Type: BLOOD Comment: Test Performed by: [id number] Meter #: [id number] Ordering Provider: SILVIA REDDY Report Released Date/Time: Aug 20, 2024 06:05 AM Reporting Lab: [facility] [facility] [address] Performing Lab: [facility] [address] GLUCOSE,BLOOD- poct (STL) 115 mg/dL H -Aug 19, 2024 04:23 PM [facility] GLUCOSE,BLOOD-poct (STL) Specimen Type: BLOOD Comment: Test Performed by: [id number] Meter #: [id number] Ordering Provider: SILVIA REDDY Report Released Date/Time: Aug 19, 2024 05:54 PM Reporting Lab: [facility] [facility] [address] Performing Lab: [facility] [facility] [address] GLUCOSE,BLOOD- poct (STL) 137 mg/dL H -Aug 19, 2024 11:28 AM [facility] GLUCOSE,BLOOD-poct (STL) Specimen Type: BLOOD Comment: Test Performed by: [id number] Meter #: [id number] Ordering Provider: SILVIA REDDY Report Released Date/Time: Aug 19, 2024 11:51 AM Reporting Lab: [facility] [facility] [address] Performing Lab: [facility] [facility] [address] GLUCOSE,BLOOD- poct (STL) 190 mg/dL H 72-Aug 19, 2024 05:21 AM [facility] GLUCOSE,BLOOD-poct (STL) Specimen Type: BLOOD Comment: Test Performed by: [id number] Meter #: [id number] Ordering Provider: SILVIA REDDY Report Released Date/Time: Aug 19, 2024 05:56 AM Reporting Lab: [facility] [address] [place] [address] Performing Lab: [facility] [address] [place] [address] GLUCOSE,BLOOD- poct (STL) 130 mg/dL H -Aug 18, 2024 04:49 PM [facility] GLUCOSE,BLOOD-poct (STL) Specimen Type: BLOOD Comment: Test Performed by: [id number] Meter #: [id number] Ordering Provider: SILVIA REDDY Report Released Date/Time: Aug 18, 2024 05:01 PM Reporting Lab: [facility] [place] [id number] Performing Lab: [facility] [facility] [address] GLUCOSE,BLOOD- poct (STL) 129 mg/dL H 72-99 Aug 18, 2024 11:23 AM [facility] GLUCOSE,BLOOD-poct (STL) Specimen Type: BLOOD Comment: Test Performed by: [id number] Meter #: [id number] Ordering Provider: SILVIA REDDY Report Released Date/Time: Aug 18, 2024 11:41 AM Reporting Lab: [facility] [address] [place] [id number] Performing Lab: [facility] [facility] [address] GLUCOSE,BLOOD- poct (STL) 180 mg/dL H Aug 18, 2024 05:08 AM [facility] GLUCOSE,BLOOD-poct (STL) Specimen Type: BLOOD Comment: Test Performed by: [id number] Meter #: [id number] Ordering Provider: SILVIA REDDY Report Released Date/Time: Aug 18, 2024 05:31 AM Reporting Lab: [facility] [facility] [address] Performing Lab: [facility] [facility] [address] GLUCOSE,BLOOD- poct (STL) 127 mg/dL H Aug 17, 2024 07:32 PM [facility] GLUCOSE,BLOOD-poct (STL) Specimen Type: BLOOD Comment: Test Performed by: [id number] Meter #: [id number] Ordering Provider: SILVIA REDDY Report Released Date/Time: Aug 17, 2024 07:59 PM Reporting Lab: [facility] [facility] [address] Performing Lab: [facility] [facility] [address] GLUCOSE,BLOOD- poct (STL) 154 mg/dL H Aug 17, 2024 04:24 PM [facility] GLUCOSE,BLOOD-poct (STL) Specimen Type: BLOOD Comment: Test Performed by: [id number] Meter #: [id number] Ordering Provider: SILVIA REDDY Report Released Date/Time: Aug 17, 2024 04:35 PM Reporting Lab: [facility] [facility] [address] Performing Lab: [facility] [facility] [address] GLUCOSE,BLOOD- poct (STL) 178 mg/dL H 72-Aug 17, 2024 05:09 AM [facility] GLUCOSE,BLOOD-poct (STL) Specimen Type: BLOOD Comment: Test Performed by: [id number] Meter #: [id number] Ordering Provider: SILVIA REDDY Report Released Date/Time: Aug 17, 2024 05:54 AM Reporting Lab: [facility] [facility] [address] Performing Lab: [facility] [address] GLUCOSE,BLOOD- poct (STL) 124 mg/dL H Aug 16, 2024 07:40 PM [facility] GLUCOSE,BLOOD-poct (STL) Specimen Type: BLOOD Comment: Test Performed by: [id number] Meter #: [id number] Ordering Provider: SILVIA REDDY Report Released Date/Time: Aug 16, 2024 08:28 PM Reporting Lab: [facility] [facility] [address] Performing Lab: [facility] [address] GLUCOSE,BLOOD- poct (STL) 144 mg/dL H Aug 16, 2024 04:19 PM [facility] GLUCOSE,BLOOD-poct (STL) Specimen Type: BLOOD Comment: Test Performed by: [id number] Meter #: [id number] Ordering Provider: SILVIA REDDY Report Released Date/Time: Aug 16, 2024 04:45 PM Reporting Lab: [facility] [facility] [address] Performing Lab: [facility] [facility] [address] GLUCOSE,BLOOD- poct (STL) 138 mg/dL H Aug 16, 2024 11:52 AM [facility] GLUCOSE,BLOOD-poct (STL) Specimen Type: BLOOD Comment: Test Performed by: [id number] Meter #: [id number] Ordering Provider: SILVIA REDDY Report Released Date/Time: Aug 16, 2024 12:04 PM Reporting Lab: [facility] [facility] [address] Performing Lab: [facility] [facility] [address] GLUCOSE,BLOOD- poct (STL) 135 mg/dL H -Aug 16, 2024 05:24 AM [facility] GLUCOSE,BLOOD-poct (STL) Specimen Type: BLOOD Comment: Test Performed by: [id number] Meter #: [id number] Ordering Provider: SILVIA REDDY Report Released Date/Time: Aug 16, 2024 05:38 AM Reporting Lab: [facility] [facility] [address] Performing Lab: [facility] [place] [address] GLUCOSE,BLOOD- poct (STL) 151 mg/dL H -Aug 15, 2024 07:31 PM [facility] GLUCOSE,BLOOD-poct (STL) Specimen Type: BLOOD Comment: Test Performed by: [id number] Meter #: [id number] Ordering Provider: SILVIA REDDY Report Released Date/Time: Aug 15, 2024 08:07 PM Reporting Lab: [facility] [facility] [address] Performing Lab: [facility] [facility] [address] GLUCOSE,BLOOD- poct (STL) 173 mg/dL H -Aug 15, 2024 04:18 PM [facility] GLUCOSE,BLOOD-poct (STL) Specimen Type: BLOOD Comment: Test Performed by: [id number] Meter #: [id number] Ordering Provider: SILVIA REDDY Report Released Date/Time: Aug 15, 2024 04:59 PM Reporting Lab: [facility] [place] [id number] Performing Lab: [facility] [facility] [address] GLUCOSE,BLOOD- poct (STL) 136 mg/dL H -Aug 15, 2024 04:16 PM [facility] GLUCOSE,BLOOD-poct (STL) Specimen Type: BLOOD Comment: Test Performed by: [id number] Meter #: [id number] Ordering Provider: SILVIA REDDY Report Released Date/Time: Aug 15, 2024 04:59 PM Reporting Lab: [facility] [facility] [address] Performing Lab: [facility] [facility] [address] GLUCOSE,BLOOD- poct (STL) 194 mg/dL H Aug 15, 2024 11:39 AM [facility] GLUCOSE,BLOOD-poct (STL) Specimen Type: BLOOD Comment: Test Performed by: [id number] Meter #: [id number] Ordering Provider: SILVIA REDDY Report Released Date/Time: Aug 15, 2024 12:00 PM Reporting Lab: [facility] [facility] [address] Performing Lab: [facility] [facility] [address] GLUCOSE,BLOOD- poct (STL) 127 mg/dL H Aug 15, 2024 05:07 AM [facility] GLUCOSE,BLOOD-poct (STL) Specimen Type: BLOOD Comment: Test Performed by: [id number] Meter #: [id number] Ordering Provider: SILVIA REDDY Report Released Date/Time: Aug 15, 2024 06:14 AM Reporting Lab: [facility] [facility] [address] Performing Lab: [facility] [facility] [address] GLUCOSE,BLOOD- poct (STL) 151 mg/dL H 72-Aug 14, 2024 04:22 PM [facility] GLUCOSE,BLOOD-poct (STL) Specimen Type: BLOOD Comment: Test Performed by: [id number] Meter #: [id number] Ordering Provider: SILVIA REDDY Report Released Date/Time: Aug 14, 2024 04:52 PM Reporting Lab: [facility] [facility] [address] Performing Lab: [facility] [facility] [address] GLUCOSE,BLOOD- poct (STL) 129 mg/dL H Aug 14, 2024 11:21 AM [facility] GLUCOSE,BLOOD-poct (STL) Specimen Type: BLOOD Comment: Test Performed by: [id number] Meter #: [id number] Ordering Provider: SILVIA REDDY Report Released Date/Time: Aug 14, 2024 11:37 AM Reporting Lab: [facility] [facility] [address] Performing Lab: [facility] [facility] [address] GLUCOSE,BLOOD- poct (STL) 135 mg/dL H Aug 14, 2024 06:59 AM [facility] QUANTIFERON-TB,4 [...] For additional information, please refer to http://education. [employer]. [employer] +/faq/BAY413 (This link is being provided for information/ educational purposes only.) Test Performed by [facility], [employer] [facility], [address] [place], [place] Tommie Garcia M.D., Ph.D., Director of Laboratories , [facility] [id number] Ordering Provider: SILVIA REDDY Report Released Date/Time: Aug 11, 2024 03:58 PM Reporting Lab: [facility] [address] [facility] [address] Performing Lab: [facility] [address] [facility] .NIL - QUANTIFERON 0.04 [IU]/mL .MITOGEN-NIL 0.39 [IU]/mL .QUANTIFERON INDETERMINATE NEGATIVE .TB1-NIL <0.00 [IU]/mL .TB2-NIL <0.00 [IU]/mL Aug 14, 2024 06:59 AM [facility] MAGNESIUM Specimen Type: PLASMA Comment: No hemolysis noted. Ordering Provider: SILVIA REDDY Report Released Date/Time: Aug 11, 2024 03:58 PM Reporting Lab: [facility] [address] [facility] [address] Performing Lab: [facility] [facility] [address] MAGNESIUM 1.9 mg/dL 1.6-2.6 Aug 14, 2024 06:59 AM [facility] B12 Specimen Type: SERUM No comment entered. Ordering Provider: SILVIA REDDY Report Released Date/Time: Aug 11, 2024 03:58 PM Reporting Lab: [facility] [facility] [address] Performing Lab: [facility] [facility] [address] B12 757 pg/mL 213-816 Aug 14, 2024 06:59 AM [facility] COMPREHENSIVE METABOLIC PANEL Specimen Type: PLASMA Comment: No hemolysis noted. Ordering Provider: SILVIA REDDY Report Released Date/Time: Aug 11, 2024 03:58 PM Reporting Lab: [facility] [facility] [address] Performing Lab: [facility] [facility] [address] CREATININE 0.75 mg/dL 0.70-1.30 UREA NITROGEN 13.6 [...] 95.88 >60 Aug 14, 2024 06:59 AM [facility] CBC Specimen Type: BLOOD No comment entered. Ordering Provider: SILVIA REDDY Report Released Date/Time: Aug 11, 2024 03:58 PM Reporting Lab: [facility] [facility] [address] Performing Lab: [facility] [facility] [address] WBC 4.1 10*3/uL 3.6-11.2 RBC 3.20 10*6/uL [...] 2024 06:59 AM [facility] FOLATE (L-MA) Specimen Type: SERUM No comment entered. Ordering Provider: SILVIA REDDY Report Released Date/Time: Aug 11, 2024 03:58 PM Reporting Lab: [facility] [facility] [address] Performing Lab: [facility] [facility] [address] FOLATE ([facility]) 6.8 ng/mL L 7-20 Aug 14, 2024 06:59 AM [facility] VITAMIN D, 25-HYDROXY Specimen Type: SERUM No comment entered. Ordering Provider: SILVIA REDDY Report Released Date/Time: Aug 11, 2024 03:58 PM Reporting Lab: [facility] [facility] [address] Performing Lab: [facility] [facility] [address] VITAMIN D, 25-HYDROXY 8.9 ng/mL L 30-96 Aug 14, 2024 05:08 AM [facility] GLUCOSE,BLOOD-poct (L) Specimen Type: BLOOD Comment: Test Performed by: [id number] Meter #: [id number] Ordering Provider: SILVIA REDDY Report Released Date/Time: Aug 14, 2024 05:52 AM Reporting Lab: [facility] [address] Performing Lab: [facility] [address] GLUCOSE,BLOOD- poct (STL) 135 mg/dL H 72-Aug 13, 2024 04:27 PM [facility] GLUCOSE,BLOOD-poct (STL) Specimen Type: BLOOD Comment: Test Performed by: [id number] Meter #: [id number] Ordering Provider: SILVIA REDDY Report Released Date/Time: Aug 13, 2024 04:41 PM Reporting Lab: [facility] [address] Performing Lab: [facility] [place] [address] GLUCOSE,BLOOD- poct (STL) 181 mg/dL H -Aug 13, 2024 11:33 AM [facility] GLUCOSE,BLOOD-poct (STL) Specimen Type: BLOOD Comment: Test Performed by: [id number] Meter #: [id number] Ordering Provider: SILVIA REDDY Report Released Date/Time: Aug 13, 2024 03:55 PM Reporting Lab: [facility] [address] Performing Lab: [facility] [address] GLUCOSE,BLOOD- poct (STL) 140 mg/dL H 72-Aug 13, 2024 05:54 AM [facility] GLUCOSE,BLOOD-poct (STL) Specimen Type: BLOOD Comment: Test Performed by: [id number] Meter #: [id number] Ordering Provider: SILVIA REDDY Report Released Date/Time: Aug 13, 2024 06:20 AM Reporting Lab: [facility] [place] [address] Performing Lab: [facility] [place] [id number] GLUCOSE,BLOOD- poct (STL) 112 mg/dL H -Aug 12, 2024 04:35 PM [facility] GLUCOSE,BLOOD-poct (STL) Specimen Type: BLOOD Comment: Test Performed by: [id number] Meter #: [id number] Ordering Provider: SILVIA REDDY Report Released Date/Time: Aug 12, 2024 04:47 PM Reporting Lab: [facility] [address] Performing Lab: [facility] [address] GLUCOSE,BLOOD- poct (STL) 128 mg/dL H -Aug 12, 2024 11:26 AM [facility] GLUCOSE,BLOOD-poct (STL) Specimen Type: BLOOD Comment: Test Performed by: [id number] Meter #: [id number] Ordering Provider: SILVIA REDDY Report Released Date/Time: Aug 12, 2024 11:45 AM Reporting Lab: [facility] [address] Performing Lab: [facility] [address] GLUCOSE,BLOOD- poct (STL) 188 mg/dL H -Aug 12, 2024 06:13 AM [facility] GLUCOSE,BLOOD-poct (STL) Specimen Type: BLOOD Comment: Test Performed by: [id number] Meter #: [id number] Ordering Provider: SILVIA REDDY Report Released Date/Time: Aug 12, 2024 06:25 AM Reporting Lab: [facility] [address] Performing Lab: [facility] [address] GLUCOSE,BLOOD- poct (STL) 116 mg/dL H -Aug 11, 2024 04:10 PM [facility] GLUCOSE,BLOOD-poct (STL) Specimen Type: BLOOD Comment: Test Performed by: [id number] Meter #: [id number] Ordering Provider: SILVIA REDDY Report Released Date/Time: Aug 11, 2024 04:27 PM Reporting Lab: [facility] [address] Performing Lab: [facility] [address] GLUCOSE,BLOOD- poct (STL) 184 mg/dL H 72-99 Aug 11, 2024 01:44 PM [facility] MRSA SURVL NARES DNA Specimen [...] Aug 11, 2024 02:03 PM Reporting Lab: [facility] [address] [facility] [address] Performing Lab: [address] [address] MRSA SURVL NARES DNA Negative Negative Jul 20, 2024 11:18 AM [facility] APTT Specimen Type: PLASMA No comment entered. Ordering Provider: MANUEL BAIRD Report Released Date/Time: Jul 19, 2024 04:00 PM Reporting Lab: [facility] [address] [place] [phone] Performing Lab: [facility] [address] [place] [phone] APTT 32.1 s 26.7-39.9 Jul 20, 2024 11:18 AM [facility] PT/INR NEW (STL-MA) Specimen Type: PLASMA No comment entered. Ordering Provider: MANUEL BAIRD Report Released Date/Time: Jul 19, 2024 04:00 PM Reporting Lab: [facility] [address] [facility] [place] [address] Performing Lab: [facility] [address] [place] [phone] PROTIME 14.4 s H 9.4-12.5 INR VALUE 1.3 {INR} Jul 20, 2024 11:18 AM [facility] CBC Specimen Type: BLOOD No comment entered. Ordering Provider: MANUEL BAIRD Report Released Date/Time: Jul 19, 2024 04:00 PM Reporting Lab: [address] [address] Performing Lab: [address] [address] WBC 4.7 10*3/uL 3.6-11.2 RBC 4.86 10*6/uL [...] Jun 07, 2024 01:43 PM Reporting Lab: [facility] [address] [facility] [address] Performing Lab: [facility] [address] [facility] [address] CREATININE 0.85 mg/dL 0.7-1.3 UREA NITROGEN 15.2 [...] 09:21 PM 98.4 84 119/62 18 97 [facility] Aug 14, 2024 08:00 PM 0 [facility] Aug 14, 2024 10:26 AM 0 [facility] Aug 14, 2024 09:28 AM 97.7 69 118/68 18 97 [facility] Aug 14, 2024 05:48 AM 97.7 78 136/87 16 97 [facility] Advance Directives: All historical and current [...] 19, 2017 ADVANCE DIRECTIVE DISCUSSION ERICK BARDALES [facility] Encounter Notes: All associated encounter notes This section contains the clinical notes associated to the Encounter. 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 yo male w/ PMHx of HTN, HLD, CAD, moderate MR, 2nd degree av block, asthma, JACQUELINE, pHTN, hepatic steatosis, GERD, hiatal hernia, DM Type II (Hgb A1c7.5), hx of pituitary adenoma, and obesity. 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 and underwent CABG x3 on07/24. Has known [...] referred for further PT and OT at [facility]. Interval history Patient is seen [...] at home. PMH: 1) Asthma (SNOMED CT 228269420) 2) Gastro-esophageal reflux disease (SNOMED CT 033797199) 3) Peptic Ulcer Disease * (ICD-9-CM 533.90) 4) Hypertension (SNOMED CT 79359567) 5) Neoplasm of pituitary gland (SNOMED CT 372725681) 6) Hyperlipidemia (SNOMED CT 71273311) 7) Erectile dysfunction associated with type 2 [...] 20) History of coronary artery bypass grafting 21) Obstructive Sleep Apnea of Adult (SCT 2730539828911) Equipment Owned: Cane, F22 S: Vet supine in bed, pleasant and agreeable to PT TX. Pain: None throughout --Patient goal(s): Pt reports to walk Chief Complaint: Difficulty walking Prior Level of Function: IND with cane for household distances, F22 for outside the home History of falls in the last 6 months: 1 fall out of bed Learning preferences: [x] Verbal, [x] Visual/Demonstration, [] Written --Home environment: Pt lives: [] Alone; [x] With: Son assists with IADLs Type of dwelling: [] Apartment: [x] House: 3 [place] with 2 rails [] Other: O: Vitals: BP HR O2 Pre 133/77 70 98% During 109/66 70 98% Post 130/72 89 97% MENTAL STATUS: A&O x 3-4 LE ASSESSMENT: --ROM: Grossly WFL --Strength: 4/5 BLEs EDEMA: [x] 0 - none [] 1+ - immediate rebound, 2mm [] 2+ - ~3 seconds to rebound, 4mm [] 3+ - 10-12 seconds to rebound, 6mm [] 4+ - >20 seconds to rebound, 8mm INTEGUMENTARY: Sternal incision closed/healing, LUE graft site NEURO: --Sensation: light touch absent in feet, impaired in shins --Proprioception: severely impaired in bilat. feet, diminished in knees BALANCE: --Sitting Balance: Good/IND --Standing Balance: Fair to poor/MIN A FUNCTIONAL MOBILITY - BED MOBILITY: SPV - TRANSFERS: CGA - GAIT: CGA with F22 x 80' - STAIRS: MOD A x 4 with 2 rails - WHEELCHAIR: SPV using BLEs x 50' Inpatient Rehab Facility Patient Assessment Instrument (IRF-JERO): Self-Care and Mobility (Section GG) White: 6 = Independent; 5 = Set up or clean-up assistance; 4 = Supervision or touching assist; 3 = Partial/ moderate assist; 2 = Substantial /maximal assist; 1 = Dependent 7 = Patient refused; 9 = Not applicable (not attempted & pt did not perform activity prior to current injury or exacerbation); 10 = Not attempted due to environmental or equipment limits; 88 = not attempted due to medical condition or safety concern MOBILITY ADM CURRENT GOAL Roll left and right: 4 6 Sit to lyin 6 Lying to sitting-side of bed: 4 6 Sit to stand: 4 6 Chair/[id number]-bk-lcqrw transf: 4 6 Toilet transfer: Car transfer: Comments: DOES PATIENT WALK? [ ] No, walking goal IS NOT clinically indicated (skip to WC section) [ ] No, walking goal IS clinically indicated (complete walking section) [x] Yes (complete walking section) WALKING ADM CURRENT GOAL Walk 10: 4 6 Walk 50 w/two turns: 4 6 Walk 150: 88 6 Walking 10uneven surf: 3 6 1 Step (curb): 3 6 4 Steps: 3 6 12 Steps: 88 88 Picking up object: 1 4 Comments: DOES PATIENT USE WHEELCHAIR/ SCOOTER? [ ] NO [x] YES (complete WC section) WHEELCHAIR ADM CURRENT GOAL Wheel 50 w/ two turns: 4 6 Wheel 150 feet: 2 6 WHEELCHAIR USED: Endurance: [] Good [x] Fair [] Poor Dyspnea Scale: [] 0 none noted [] +1 mild, noticeable to patient but not observer [x] +2 mild, some difficulty, noticeable to observer [] +3 moderate difficulty, but can continue [] +4 severe difficulty, cannot continue RPE: 03/10 OUTCOME MEASURES: 30 second sit<>stand: TBD EDUCATION Comprehensive TREATMENT/EDUCATION provided during this stay: [place] verbalized understanding of education/instructions. [place] given 1:1 instruction on: Selkirk's goals PT plan of care rationale of PT unit mobility recommendations Equip use/care Exercise program - seated LAQ Falls was left supine in room with call light and tray table in reach. Nursing hand off completed. A: Tariq is a 74 Y.O. individual admitted to [facility] for skilled rehabilitation s/p CABG. Prior to hospitalization the was IND with functional mobility. Relevant findings on evaluation include, generalized deconditioning and weakness, new sternal precautions and significant sensory impairments (vet reports baseline neuropathy). They would benefit from skilled therapy to address deficits, maximize recovery, reduce burden of care and improve overall independence. Physical Therapy Diagnosis: __ Dysmetria: lack of coordination of movement characterized by over or undershooting of intended movement (ataxia) x__Force Production Deficit: weakness __Fractionated Movement Deficit: unable to fractionate (separate) movements __Hypokinesia: slowness in initiating and executing movement __Movement Pattern Coordination Deficit: altered sequence of movement components during execution of a task __Postural Vertical Deficit: inaccurate perception of vertical orientation (pusher) _x_Sensory Detection Deficit: impaired proprioception (loss of joint position sense) __Sensory Selection and weighting deficit: sensory issues as primary movement system problem __Cognitive deficit: impaired motor control related to lack of arousal or attention Problem list: complicating co-morbidities decreased independence with functional mobility decreased endurance compromised balance decreased tolerance to activity compromised safety with mobility Barriers to rehab: -complexities/conditions/ci rcumstances that may impact treatment -home environment: [place] -co-morbidities -Decreased strength -Decreased endurance -Sternal precautions Barriers to learning: -none identified P.T. Prognosis: __ POOR- Limited potential for improvement __ GUARDED- There exists a question of the potential for improvement secondary to any of the above questions __FAIR- Presents with the potential to improve in some areas while other deficits may remain unchanged. x__GOOD- Presents with the potential to improve to a level of functional independence though may continue to demonstrate certain minimal limitations. __EXCELLENT- Presents with the potential to fully recover no residual deficits. 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 P: Pt to be seen 3-5 days/week/OID/BID for the following activities: x___gait training with/without device x___modalities x___balance activities ___prosthetic training x___endurance activities x___w/c mobility training x___LE strengthening x___stair training ___LE ROM x___transfer training ___UE/shoulder strengthening ___manual stretching x___muscle re-education ___coping strategies Anticipated discharge location: x__Home independently __Home with assistance __Nursing home Equipment recommendations: x__wheeled walker __F-22 __manual wheelchair __straight cane __ramp Pt presented with the following number of personal factors/co-morbidities influencing the PT plan of care: -> 74 year-old -> Home environment -> PMHx/comorbidities Total number of elements examined: 5 including -> Strength -> Neurological Influence -> Balance -> Functional Mobility -> Vital Signs Pts CLINICAL PRESENTATION was: [] Stable and/or Uncomplicated: [x] Evolving Clinical Presentation with Changing Clinical Characteristics: [] Unstable and Unpredictable Characteristics: Therefore the level of complexity for this patient was: [] Low, [x] Moderate, [] High /es/ GERRY CONRAD PT, DPT, CBIS Signed: 08/14/2024 11:37 GERRY CONRAD [facility]
--- OUTSIDE RECORDS SUMMARY | 2024-11-17 04:05 | XMS_ITS | Encounter Summary ---
Author Name [facility] Address [address] [place] [address] Care Team Providers Care Electron Gun Inspector Name Role Phone MANUEL BAIRD Primary [...] PART A Apr 08, 2017 PART A [id number] ASHLEY WALKER PATIENT Selected Encounter This [...] this document. The data comes from all [place] facilities. Date Advance Directives Provider Source Jan 19, 2017 ADVANCE DIRECTIVE DISCUSSION ERICK BARDALES [facility]
--- OUTSIDE RECORDS SUMMARY | 2024-11-17 04:05 | XMS_ITS | Encounter Summary ---
Author Name [facility] Organization [facility] Address [address] [place] [address] Care Team Providers Care Shoder Filler Name Role Phone MANUEL BAIRD Primary Care [...] PART A Apr 08, 2017 PART A [id number] [phone] ASHLEY WALKER PATIENT Selected Encounter This section includes the information on record at [place] for the Encounter. 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 NADEGE REDDY [facility] Aug 14, 2024 02:53 PM SECONDARY Essential (primary) hypertension NADEGE REDDY [facility] Aug 14, 2024 02:53 PM SECONDARY Fatty (change of) liver, not elsewhere classified NADEGE REDDY [facility] Aug 14, 2024 02:53 PM SECONDARY Heart failure, unspecified NADEGE REDDY [facility] Aug 14, 2024 02:53 PM SECONDARY Obstructive sleep apnea (adult) (pediatric) NADEGE REDDY [facility] Aug 14, 2024 02:53 PM SECONDARY Presence of right artificial knee joint NADEGE REDDY [facility] Aug 14, 2024 02:53 PM SECONDARY Type 2 diabetes w diabetic autonomic (poly)neuropathy NADEGE REDDY [facility] Plan of Treatment: Future Appointments (+ 6 months) and Future Tests (+/- 45 days) The Plan of Treatment section includes future care activities for the [facility] [place] [facility] This section includes future appointments and future orders which are active, pending or scheduled. Future Appointments This section includes appointments that were scheduled to occur 6 months from the date of the Encounter, up to a maximum of 20 appointments. The data comes from all [place] treatment facilities. Appointment Date/Time Appointment Type Appointme nt Facility Name Aug 24, 2024 10:00 AM AMBULATORY - MEDICINE [facility] Aug 24, 2024 10:30 AM AMBULATORY - MEDICINE [facility] Aug 30, 2024 09:30 AM AMBULATORY - MEDICINE [facility] Aug 31, 2024 01:00 PM AMBULATORY - SURGERY [facility] Sep 21, 2024 01:30 PM AMBULATORY - MEDICINE [facility] Sep 22, 2024 11:00 AM AMBULATORY - MEDICINE [facility] Sep 29, 2024 12:30 PM AMBULATORY - MEDICINE [facility] Oct 02, 2024 09:30 AM AMBULATORY - MEDICINE [facility] Nov 20, 2024 10:30 AM AMBULATORY - SURGERY [facility] Nov 21, 2024 10:00 AM AMBULATORY - NONE [facility] Dec 11, 2024 10:30 AM AMBULATORY - MEDICINE [facility] Active, Pending, and Scheduled Orders This [...] Laboratory - Chemistry Order CBC BLOOD STAT [facility] Aug 02, 2024 12:00 AM Laboratory - Chemistry Order COMPREHENSIVE METABOLIC PANEL GREEN LI/HEP BLD/PLAS PLASMA SP [facility] Aug 17, 2024 03:47 PM Consult Order [facility] Cons Bedside [facility] Lab Results: +/- 30 days of [...] Aug 23, 2024 08:21 AM [facility] MAGNESIUM Specimen Type: PLASMA No comment entered. Ordering Provider: SIMEON REDDY Report Released Date/Time: Aug 22, 2024 11:26 AM Reporting Lab: [facility] [address] Performing Lab: [facility] [address] MAGNESIUM 1.8 mg/dL 1.6-2.6 Aug 23, 2024 08:21 AM [facility] CBC Specimen Type: BLOOD No comment entered. Ordering Provider: SIMEON REDDY Report Released Date/Time: Aug 22, 2024 11:19 AM Reporting Lab: [facility] [address] Performing Lab: [facility] [address] WBC 4.0 10*3/uL 3.6-11.2 RBC 3.65 10*6/uL [...] Aug 23, 2024 05:12 AM [facility] GLUCOSE,BLOOD-poct (STL) Specimen Type: BLOOD Comment: Test Performed by: [id number] Meter #: [id number] Ordering Provider: SIMEON REDDY Report Released Date/Time: Aug 23, 2024 05:23 AM Reporting Lab: [facility] [address] Performing Lab: [facility] [address] GLUCOSE,BLOOD- poct (STL) 99 mg/dL 72-99 Aug 23, 2024 02:45 AM [facility] OCCULT BLOOD FIT X1 SCREEN Specimen Type: FECES No comment entered. Ordering Provider: SIMEON REDDY Report Released Date/Time: Aug 22, 2024 11:23 AM Reporting Lab: [address] [address] Performing Lab: [address] [address] OCCULT BLOOD (FIT) #1 OF 1 Negative Negative Aug 22, 2024 07:30 PM [facility] OCCULT BLOOD FIT X1 SCREEN Specimen Type: FECES No comment entered. Ordering Provider: SIMEON REDDY Report Released Date/Time: Aug 22, 2024 11:23 AM Reporting Lab: [address] [address] Performing Lab: [address] [address] OCCULT BLOOD (FIT) #1 OF 1 Negative Negative Aug 22, 2024 06:15 PM [facility] OCCULT BLOOD FIT X1 SCREEN Specimen Type: FECES No comment entered. Ordering Provider: SIMEON REDDY Report Released Date/Time: Aug 22, 2024 11:23 AM Reporting Lab: [address] [address] Performing Lab: [address] [address] OCCULT BLOOD (FIT) #1 OF 1 Negative Negative Aug 22, 2024 04:24 PM [facility] GLUCOSE,BLOOD-poct (STL) Specimen Type: BLOOD Comment: Test Performed by: [id number] Meter #: [id number] Ordering Provider: SIMEON REDDY Report Released Date/Time: Aug 22, 2024 04:36 PM Reporting Lab: [facility] [address] Performing Lab: [facility] [address] GLUCOSE,BLOOD- poct (STL) 176 mg/dL H 72-Aug 22, 2024 04:23 PM [facility] GLUCOSE,BLOOD-poct (STL) Specimen Type: BLOOD Comment: Test Performed by: [id number] Meter #: [id number] Ordering Provider: SIMEON REDDY Report Released Date/Time: Aug 22, 2024 04:36 PM Reporting Lab: [facility] [address] Performing Lab: [facility] [address] GLUCOSE,BLOOD- poct (STL) 221 mg/dL H -Aug 22, 2024 11:15 AM [facility] GLUCOSE,BLOOD-poct (STL) Specimen Type: BLOOD Comment: Test Performed by: [id number] Meter #: [id number] Ordering Provider: SIMEON REDDY Report Released Date/Time: Aug 22, 2024 11:27 AM Reporting Lab: [facility] [address] Performing Lab: [facility] [address] GLUCOSE,BLOOD- poct (STL) 140 mg/dL H 72-Aug 22, 2024 08:03 AM [facility] FERRITIN Specimen Type: SERUM No comment entered. Ordering Provider: JUDIT PERKINS Report Released Date/Time: Aug 18, 2024 11:01 AM Reporting Lab: [facility] [address] [facility] [address] Performing Lab: [facility] [address] [facility] [address] FERRITIN 79.50 ng/mL 22-Aug 22, 2024 08:03 AM [facility] IRON/TIBC PROFILE Specimen Type: SERUM No comment entered. Ordering Provider: JUDIT PERKINS Report Released Date/Time: Aug 18, 2024 11:01 AM Reporting Lab: [facility] [address] [facility] [address] Performing Lab: [address] [address] TIBC 283 ug/dL 250-450 TRANSFERRIN 226 mg/dL 163-344 IRON SATURATION 7 L 20-50 IRON 19 ug/dL L 65-175 Aug 22, 2024 08:[address] [facility] B12 Specimen Type: SERUM No comment entered. Ordering Provider: JUDIT PERKINS Report Released Date/Time: Aug 18, 2024 11:01 AM Reporting Lab: [facility] [address] Performing Lab: [facility] [address] B12 631 pg/mL 213-816 Aug 22, 2024 08:03 AM [facility] COMPREHENSIVE METABOLIC PANEL Specimen Type: PLASMA Comment: No hemolysis noted. Ordering Provider: SIMEON REDDY Report Released Date/Time: Aug 17, 2024 01:18 PM Reporting Lab: [address] [address] Performing Lab: [address] [address] CREATININE 0.80 mg/dL 0.7-1.3 UREA NITROGEN 9.7 [...] >60 Aug 22, 2024 08:[address] [facility] CBC Specimen Type: BLOOD No comment entered. Ordering Provider: SIMEON REDDY Report Released Date/Time: Aug 17, 2024 01:18 PM Reporting Lab: [facility] [address] Performing Lab: [facility] [address] WBC 3.5 10*3/uL L 3.6-11.2 RBC 3.23 [...] 0 Aug 22, 2024 05:[address] [facility] GLUCOSE,BLOOD-poct (STL) Specimen Type: BLOOD Comment: Test Performed by: [id number] Meter #: [id number] Ordering Provider: SIMEON REDDY Report Released Date/Time: Aug 22, 2024 06:17 AM Reporting Lab: [facility] [address] Performing Lab: [facility] [facility] [address] GLUCOSE,BLOOD- poct (STL) 170 mg/dL H 72-99 Aug 21, 2024 04:32 PM [facility] GLUCOSE,BLOOD-poct (STL) Specimen Type: BLOOD Comment: Test Performed by: [id number] Meter #: [id number] Ordering Provider: SIMEON REDDY Report Released Date/Time: Aug 21, 2024 04:49 PM Reporting Lab: [facility] [facility] [address] Performing Lab: [facility] [address] GLUCOSE,BLOOD- poct (STL) 169 mg/dL H 72-99 Aug 21, 2024 11:53 AM [facility] GLUCOSE,BLOOD-poct (STL) Specimen Type: BLOOD Comment: Test Performed by: [id number] Meter #: [id number] Ordering Provider: SIMEON REDDY Report Released Date/Time: Aug 21, 2024 12:11 PM Reporting Lab: [facility] [address] Performing Lab: [facility] [facility] [address] GLUCOSE,BLOOD- poct (STL) 149 mg/dL H 72-99 Aug 21, 2024 05:10 AM [facility] GLUCOSE,BLOOD-poct (STL) Specimen Type: BLOOD Comment: Test Performed by: [id number] Meter #: [id number] Ordering Provider: SIMEON REDDY Report Released Date/Time: Aug 21, 2024 05:27 AM Reporting Lab: [facility] [address] Performing Lab: [facility] [facility] [address] GLUCOSE,BLOOD- poct (STL) 118 mg/dL H 72-99 Aug 20, 2024 04:38 PM [facility] GLUCOSE,BLOOD-poct (STL) Specimen Type: BLOOD Comment: Test Performed by: [id number] Meter #: [id number] Ordering Provider: SIMEON REDDY Report Released Date/Time: Aug 21, 2024 01:55 AM Reporting Lab: [facility] [address] Performing Lab: [facility] [facility] [address] GLUCOSE,BLOOD- poct (STL) 169 mg/dL H 72-99 Aug 20, 2024 04:36 PM [facility] GLUCOSE,BLOOD-poct (STL) Specimen Type: BLOOD Comment: Test Performed by: [id number] Meter #: [id number] Ordering Provider: SIMEON REDDY Report Released Date/Time: Aug 21, 2024 01:55 AM Reporting Lab: [facility] [address] Performing Lab: [facility] [address] GLUCOSE,BLOOD- poct (STL) 395 mg/dL H 72-99 Aug 20, 2024 11:45 AM [facility] GLUCOSE,BLOOD-poct (STL) Specimen Type: BLOOD Comment: Test Performed by: [id number] Meter #: [id number] Ordering Provider: SIMEON REDDY Report Released Date/Time: Aug 20, 2024 11:56 AM Reporting Lab: [facility] [address] Performing Lab: [facility] [address] GLUCOSE,BLOOD- poct (STL) 169 mg/dL H 72-99 Aug 20, 2024 05:06 AM [facility] GLUCOSE,BLOOD-poct (STL) Specimen Type: BLOOD Comment: Test Performed by: [id number] Meter #: [id number] Ordering Provider: SIMOEN REDDY Report Released Date/Time: Aug 20, 2024 06:05 AM Reporting Lab: [facility] [address] Performing Lab: [facility] [address] GLUCOSE,BLOOD- poct (STL) 115 mg/dL H -Aug 19, 2024 04:23 PM [facility] GLUCOSE,BLOOD-poct (STL) Specimen Type: BLOOD Comment: Test Performed by: [id number] Meter #: [id number] Ordering Provider: SIMEON REDDY Report Released Date/Time: Aug 19, 2024 05:54 PM Reporting Lab: [facility] [address] Performing Lab: [facility] [address] GLUCOSE,BLOOD- poct (STL) 137 mg/dL H Aug 19, 2024 11:28 AM [facility] GLUCOSE,BLOOD-poct (STL) Specimen Type: BLOOD Comment: Test Performed by: [id number] Meter #: [id number] Ordering Provider: SIMEON REDDY Report Released Date/Time: Aug 19, 2024 11:51 AM Reporting Lab: [facility] [address] Performing Lab: [facility] [address] GLUCOSE,BLOOD- poct (STL) 190 mg/dL H Aug 19, 2024 05:21 AM [facility] GLUCOSE,BLOOD-poct (STL) Specimen Type: BLOOD Comment: Test Performed by: [id number] Meter #: [id number] Ordering Provider: SIMEON REDDY Report Released Date/Time: Aug 19, 2024 05:56 AM Reporting Lab: [facility] [address] Performing Lab: [facility] [address] GLUCOSE,BLOOD- poct (STL) 130 mg/dL H Aug 18, 2024 04:49 PM [facility] GLUCOSE,BLOOD-poct (STL) Specimen Type: BLOOD Comment: Test Performed by: [id number] Meter #: [id number] Ordering Provider: SIMEON REDDY Report Released Date/Time: Aug 18, 2024 05:01 PM Reporting Lab: [facility] [address] Performing Lab: [facility] [address] GLUCOSE,BLOOD- poct (STL) 129 mg/dL H 72-Aug 18, 2024 11:23 AM [facility] GLUCOSE,BLOOD-poct (STL) Specimen Type: BLOOD Comment: Test Performed by: [id number] Meter #: [id number] Ordering Provider: SIMEON REDDY Report Released Date/Time: Aug 18, 2024 11:41 AM Reporting Lab: [facility] [address] Performing Lab: [facility] [address] GLUCOSE,BLOOD- poct (STL) 180 mg/dL H -Aug 18, 2024 05:08 AM [facility] GLUCOSE,BLOOD-poct (STL) Specimen Type: BLOOD Comment: Test Performed by: [id number] Meter #: [id number] Ordering Provider: SIMEON REDDY Report Released Date/Time: Aug 18, 2024 05:31 AM Reporting Lab: [facility] [address] Performing Lab: [facility] [address] GLUCOSE,BLOOD- poct (STL) 127 mg/dL H 72-Aug 17, 2024 07:32 PM [facility] GLUCOSE,BLOOD-poct (STL) Specimen Type: BLOOD Comment: Test Performed by: [id number] Meter #: [id number] Ordering Provider: SIMEON REDDY Report Released Date/Time: Aug 17, 2024 07:59 PM Reporting Lab: [facility] [address] Performing Lab: [facility] [address] GLUCOSE,BLOOD- poct (STL) 154 mg/dL H 72-Aug 17, 2024 04:24 PM [facility] GLUCOSE,BLOOD-poct (STL) Specimen Type: BLOOD Comment: Test Performed by: [id number] Meter #: [id number] Ordering Provider: SIMEON REDDY Report Released Date/Time: Aug 17, 2024 04:35 PM Reporting Lab: [facility] [address] Performing Lab: [facility] [address] GLUCOSE,BLOOD- poct (STL) 178 mg/dL H -Aug 17, 2024 05:09 AM [facility] GLUCOSE,BLOOD-poct (STL) Specimen Type: BLOOD Comment: Test Performed by: [id number] Meter #: [id number] Ordering Provider: SIMEON REDDY Report Released Date/Time: Aug 17, 2024 05:54 AM Reporting Lab: [facility] [address] Performing Lab: [facility] [address] GLUCOSE,BLOOD- poct (STL) 124 mg/dL H 72-99 Aug 16, 2024 07:40 PM [facility] GLUCOSE,BLOOD-poct (STL) Specimen Type: BLOOD Comment: Test Performed by: [id number] Meter #: [id number] Ordering Provider: SIMEON REDDY Report Released Date/Time: Aug 16, 2024 08:28 PM Reporting Lab: [facility] [address] Performing Lab: [facility] [address] GLUCOSE,BLOOD- poct (STL) 144 mg/dL H Aug 16, 2024 04:19 PM [facility] GLUCOSE,BLOOD-poct (STL) Specimen Type: BLOOD Comment: Test Performed by: [id number] Meter #: [id number] Ordering Provider: SIMEON REDDY Report Released Date/Time: Aug 16, 2024 04:45 PM Reporting Lab: [facility] [address] Performing Lab: [facility] [address] GLUCOSE,BLOOD- poct (STL) 138 mg/dL H Aug 16, 2024 11:52 AM [facility] GLUCOSE,BLOOD-poct (STL) Specimen Type: BLOOD Comment: Test Performed by: [id number] Meter #: [id number] Ordering Provider: SIMEON REDDY Report Released Date/Time: Aug 16, 2024 12:04 PM Reporting Lab: [facility] [address] Performing Lab: [facility] [address] GLUCOSE,BLOOD- poct (STL) 135 mg/dL H Aug 16, 2024 05:24 AM [facility] GLUCOSE,BLOOD-poct (STL) Specimen Type: BLOOD Comment: Test Performed by: [id number] Meter #: [id number] Ordering Provider: SIMEON REDDY Report Released Date/Time: Aug 16, 2024 05:38 AM Reporting Lab: [facility] [address] Performing Lab: [facility] [address] GLUCOSE,BLOOD- poct (STL) 151 mg/dL H Aug 15, 2024 07:31 PM [facility] GLUCOSE,BLOOD-poct (STL) Specimen Type: BLOOD Comment: Test Performed by: [id number] Meter #: [id number] Ordering Provider: SIMEON REDDY Report Released Date/Time: Aug 15, 2024 08:07 PM Reporting Lab: [facility] [address] Performing Lab: [facility] [address] GLUCOSE,BLOOD- poct (STL) 173 mg/dL H -Aug 15, 2024 04:18 PM [facility] GLUCOSE,BLOOD-poct (STL) Specimen Type: BLOOD Comment: Test Performed by: [id number] Meter #: [id number] Ordering Provider: SIMEON REDDY Report Released Date/Time: Aug 15, 2024 04:59 PM Reporting Lab: [facility] [address] Performing Lab: [facility] [address] GLUCOSE,BLOOD- poct (STL) 136 mg/dL H -Aug 15, 2024 04:16 PM [facility] GLUCOSE,BLOOD-poct (STL) Specimen Type: BLOOD Comment: Test Performed by: [id number] Meter #: [id number] Ordering Provider: SIMEON REDDY Report Released Date/Time: Aug 15, 2024 04:59 PM Reporting Lab: [facility] [address] Performing Lab: [facility] [address] GLUCOSE,BLOOD- poct (STL) 194 mg/dL H 72-Aug 15, 2024 11:39 AM [facility] GLUCOSE,BLOOD-poct (STL) Specimen Type: BLOOD Comment: Test Performed by: [id number] Meter #: [id number] Ordering Provider: SIMEON REDDY Report Released Date/Time: Aug 15, 2024 12:00 PM Reporting Lab: [facility] [address] Performing Lab: [facility] [address] GLUCOSE,BLOOD- poct (STL) 127 mg/dL H 72-99 Aug 15, 2024 05:07 AM [facility] GLUCOSE,BLOOD-poct (STL) Specimen Type: BLOOD Comment: Test Performed by: [id number] Meter #: [id number] Ordering Provider: SIMEON REDDY Report Released Date/Time: Aug 15, 2024 06:14 AM Reporting Lab: [facility] [address] Performing Lab: [facility] [address] GLUCOSE,BLOOD- poct (STL) 151 mg/dL H 72-99 Aug 14, 2024 04:22 PM [facility] GLUCOSE,BLOOD-poct (STL) Specimen Type: BLOOD Comment: Test Performed by: [id number] Meter #: [id number] Ordering Provider: SIMEON REDDY Report Released Date/Time: Aug 14, 2024 04:52 PM Reporting Lab: [facility] [address] Performing Lab: [facility] [address] GLUCOSE,BLOOD- poct (STL) 129 mg/dL H 72-99 Aug 14, 2024 11:21 AM [facility] GLUCOSE,BLOOD-poct (STL) Specimen Type: BLOOD Comment: Test Performed by: [id number] Meter #: [id number] Ordering Provider: SIMEON REDDY Report Released Date/Time: Aug 14, 2024 11:37 AM Reporting Lab: [facility] [address] Performing Lab: [facility] [address] GLUCOSE,BLOOD- poct (STL) 135 mg/dL H 72-99 Aug 14, 2024 06:[address] [facility] QUANTIFERON-TB,4 TUBE Specimen Type: BLOOD Comment: [...] For additional information, please refer to [email or web address] [email or web address] Sellsy/faq/SHB923 (This link is being provided for information/ educational purposes only.) Test Performed by [employer], [facility], [address] [place] [address] Tommie Garcia M.D., Ph.D., Director of Laboratories , [facility] [id number] Ordering Provider: SIMEON REDDY Report Released Date/Time: Aug 11, 2024 03:58 PM Reporting Lab: [facility] [address] [facility] [address] Performing Lab: [facility] [id number] [facility] .NIL - QUANTIFERON 0.04 [IU]/mL .MITOGEN-NIL 0.39 [IU]/mL .QUANTIFERON INDETERMINATE NEGATIVE .TB1-NIL <0.00 [IU]/mL .TB2-NIL <0.00 [IU]/mL Aug 14, 2024 06:[address] [facility] MAGNESIUM Specimen Type: PLASMA Comment: No hemolysis noted. Ordering Provider: SIMEON REDDY Report Released Date/Time: Aug 11, 2024 03:58 PM Reporting Lab: [facility] [address] [facility] [id number] Performing Lab: [facility] [address] [place] [phone] MAGNESIUM 1.9 mg/dL 1.6-2.6 Aug 14, 2024 06:[address] [facility] B12 Specimen Type: SERUM No comment entered. Ordering Provider: SIMEON REDDY Report Released Date/Time: Aug 11, 2024 03:58 PM Reporting Lab: [facility] [address] [facility] [address] Performing Lab: [facility] [address] [place] [phone] B12 757 pg/mL 213-816 Aug 14, 2024 06:[address] [facility] VITAMIN D, 25-HYDROXY Specimen Type: SERUM No comment entered. Ordering Provider: SIMEON REDDY Report Released Date/Time: Aug 11, 2024 03:58 PM Reporting Lab: [facility] [address] [facility] [id number] Performing Lab: [facility] [address] [facility] [phone] VITAMIN D, 25-HYDROXY 8.9 ng/mL L 30-96 Aug 14, 2024 06:[address] [facility] FOLATE (STL-MA) Specimen Type: SERUM No comment entered. Ordering Provider: SIMEON REDDY Report Released Date/Time: Aug 11, 2024 03:58 PM Reporting Lab: [facility] [address] [facility] [address] Performing Lab: [facility] [address] [place] [id number] FOLATE (STL-MA) 6.8 ng/mL L 7-20 Aug 14, 2024 06:59 AM [facility] CBC Specimen Type: BLOOD No comment entered. Ordering Provider: SIMEON REDDY Report Released Date/Time: Aug 11, 2024 03:58 PM Reporting Lab: [facility] [facility] [place] [id number] Performing Lab: [facility] [place] [address] WBC 4.1 10*3/uL 3.6-11.2 RBC 3.20 10*6/uL [...] 14, 2024 06:59 AM [facility] COMPREHENSIVE METABOLIC PANEL Specimen Type: PLASMA Comment: No hemolysis noted. Ordering Provider: SIMEON REDDY Report Released Date/Time: Aug 11, 2024 03:58 PM Reporting Lab: [facility] [place] [address] Performing Lab: [facility] [place] [address] CREATININE 0.75 mg/dL 0.70-1.30 UREA NITROGEN 13.6 [...] Aug 14, 2024 05:08 AM [facility] GLUCOSE,BLOOD-poct (STL) Specimen Type: BLOOD Comment: Test Performed by: [id number] Meter #: [id number] Ordering Provider: SIMEON REDDY Report Released Date/Time: Aug 14, 2024 05:52 AM Reporting Lab: [facility] [address] Performing Lab: [facility] [address] GLUCOSE,BLOOD- poct (STL) 135 mg/dL H 72-99 Aug 13, 2024 04:27 PM [facility] GLUCOSE,BLOOD-poct (STL) Specimen Type: BLOOD Comment: Test Performed by: [id number] Meter #: [id number] Ordering Provider: SIMEON REDDY Report Released Date/Time: Aug 13, 2024 04:41 PM Reporting Lab: [facility] [address] Performing Lab: [facility] [address] GLUCOSE,BLOOD- poct (STL) 181 mg/dL H 72-99 Aug 13, 2024 11:33 AM [facility] GLUCOSE,BLOOD-poct (STL) Specimen Type: BLOOD Comment: Test Performed by: [id number] Meter #: [id number] Ordering Provider: SIMEON REDDY Report Released Date/Time: Aug 13, 2024 03:55 PM Reporting Lab: [facility] [address] Performing Lab: [facility] [address] GLUCOSE,BLOOD- poct (STL) 140 mg/dL H -Aug 13, 2024 05:54 AM [facility] GLUCOSE,BLOOD-poct (STL) Specimen Type: BLOOD Comment: Test Performed by: [id number] Meter #: [id number] Ordering Provider: SIMEON REDDY Report Released Date/Time: Aug 13, 2024 06:20 AM Reporting Lab: [facility] [place] [address] Performing Lab: [facility] [place] [address] GLUCOSE,BLOOD- poct (STL) 112 mg/dL H -Aug 12, 2024 04:35 PM [facility] GLUCOSE,BLOOD-poct (STL) Specimen Type: BLOOD Comment: Test Performed by: [id number] Meter #: [id number] Ordering Provider: SIMEON REDDY Report Released Date/Time: Aug 12, 2024 04:47 PM Reporting Lab: [facility] [place] [address] Performing Lab: [facility] [address] GLUCOSE,BLOOD- poct (STL) 128 mg/dL H -Aug 12, 2024 11:26 AM [facility] GLUCOSE,BLOOD-poct (STL) Specimen Type: BLOOD Comment: Test Performed by: [id number] Meter #: [id number] Ordering Provider: SIMEON REDDY Report Released Date/Time: Aug 12, 2024 11:45 AM Reporting Lab: [facility] [phone] Performing Lab: [facility] [address] GLUCOSE,BLOOD- poct (STL) 188 mg/dL H 72-Aug 12, 2024 06:13 AM [facility] GLUCOSE,BLOOD-poct (STL) Specimen Type: BLOOD Comment: Test Performed by: [id number] Meter #: [id number] Ordering Provider: SIMEON REDDY Report Released Date/Time: Aug 12, 2024 06:25 AM Reporting Lab: [facility] [address] Performing Lab: [facility] [address] GLUCOSE,BLOOD- poct (STL) 116 mg/dL H -Aug 11, 2024 04:10 PM [facility] GLUCOSE,BLOOD-poct (STL) Specimen Type: BLOOD Comment: Test Performed by: [id number] Meter #: [id number] Ordering Provider: SIMEON REDDY Report Released Date/Time: Aug 11, 2024 04:27 PM Reporting Lab: [facility] [address] Performing Lab: [facility] [address] GLUCOSE,BLOOD- poct (STL) 184 mg/dL H -Aug 11, 2024 01:44 PM [facility] MRSA SURVL NARES DNA Specimen Type: [...] Aug 11, 2024 02:03 PM Reporting Lab: [facility] [address] [place] [phone] Performing Lab: [facility] [address] [place] [address] MRSA SURVL NARES DNA Negative Negative Jul 20, 2024 11:18 AM [facility] APTT Specimen Type: PLASMA No comment entered. Ordering Provider: MANUEL BAIRD Report Released Date/Time: Jul 19, 2024 04:00 PM Reporting Lab: [address] [address] Performing Lab: [address] [address] APTT 32.1 s 26.7-39.9 Jul 20, 2024 11:18 AM [facility] PT/INR NEW ([facility]) Specimen Type: PLASMA No comment entered. Ordering Provider: MANUEL BAIRD Report Released Date/Time: Jul 19, 2024 04:00 PM Reporting Lab: [address] [address] Performing Lab: [address] [address] PROTIME 14.4 s H 9.4-12.5 INR VALUE 1.3 {INR} Jul 20, 2024 11:18 AM [facility] CBC Specimen Type: BLOOD No comment entered. Ordering Provider: MANUEL BAIRD Report Released Date/Time: Jul 19, 2024 04:00 PM Reporting Lab: [address] [address] Performing Lab: [address] [address] WBC 4.7 10*3/uL 3.6-11.2 RBC 4.86 10*6/uL [...] 1.6 1.0-7.0 Jul 17, 2024 08:02 AM [facility] BASIC METABOLIC PANEL Specimen Type: PLASMA Comment: No hemolysis noted. Ordering Provider: MARY SERNA Report Released Date/Time: Jun 07, 2024 01:43 PM Reporting Lab: [address] [address] Performing Lab: [address] [address] CREATININE 0.85 mg/dL 0.7-1.3 UREA NITROGEN 15.2 [...] 09:21 PM 98.4 84 119/62 [address] [facility] Aug 14, 2024 08:00 PM [address] [facility] Aug 14, 2024 10:26 AM 0 [facility] Aug 14, 2024 09:28 AM 97.7 69 118/68 18 97 [facility] Aug 14, 2024 05:48 AM 97.7 78 136/87 16 97 [facility] Advance Directives: All historical and current [...] DIRECTIVE DISCUSSION ERICK BARDALES [facility] Encounter Notes: All associated encounter notes This section contains the clinical notes associated to the Encounter. Date/Time Encounter Note(s) Provider Source Aug 14, 2024 01:24 PM AGRONOMIST CARE NOTE: LOCAL TITLE: [facility] NOTE [facility] STANDARD TITLE: AGRONOMIST CARE NOTE DATE OF NOTE: AUG 14, 2024@13:24 ENTRY DATE: AUG 14, 2024@13:24:45 AUTHOR: SIMEON REDDY COSIGNER: URGENCY: STATUS: COMPLETED This is a 74 year old, DECLINED TO ANSWER MALE with a chief complaint of: [place] reports he had a good weekend and is eager to start therapy. [place] is s/p CABG and c/o incisions itching. Was told at OSH that his incision dressing will come off on its own. Incison healing well. REVIEW OF SYSTEMS: Pain:denies Bowels: bm today, no diarrhea Sleep:sleeping ok Weight: has decreased. No increased sob, no cp, no n/v, no fever or chills. With the following known Allergies: TRAMADOL On the following Active Medications: 1) PREGABALIN CAP,ORAL PO BID 100MG 2) ASPIRIN (ENTERIC-COATED)(OTC) TAB,EC PO QDAILY 81MG 3) ATORVASTATIN TAB PO QPM 80MG 4) CLOPIDOGREL TAB PO QDAILY 75MG 5) DULOXETINE CAP,EC PO QDAILY 60MG 6) ISOSORBIDE MONONITRATE TAB,SA PO QDAILY 15MG 7) MAGNESIUM OXIDE TAB PO BID 800MG 8) MULTIVITAMIN CAP/TAB PO QDAILY 1 TABLET 9) OMEPRAZOLE CAP,EC PO QAMAC 10) ACETAMINOPHEN TAB PO Q6H PRN 650MG 11) ALBUTEROL (CFC-F) INHL,ORAL INH ORAL QID PRN 1 PUFF 12) DEXTROSE 24GM TUBE GEL,ORAL PO Q15MIN PRN 1 TUBE 13) CARBOXYMETHYLCELLULOSE 0.5% (PF) OU QID PRN 14) INSULIN ASPART (NOVOLOG) INJ SQ TID AC SLIDING SCALE 15) FOLIC ACID TAB PO QDAILY 1MG 16) ERGOCALCIFEROL (HIGH DOSE VITAMIN D) PO MO@1700 x 8 weeks Recent Vital Signs: Temperature: 97.7 F [36.5 C] (08/14/2024 09:28) BP: 118/68 (08/14/2024 09:28) Pulse: 69 (08/14/2024 09:28) Resp: 18 (08/14/2024 09:28) Pain Scores: Measurement DT PAIN 08/14/2024 10:26 0 08/13/2024 12:24 0 08/12/2024 22:30 0 08/11/2024 20:15 0 Weight: Measurement DT WEIGHT LB(KG)[BMI] 08/13/2024 10:48 211.9(96.12)[30*] 08/12/2024 12:41 212.3(96.30)[31*] 08/11/2024 14:26 211.1(95.75)[30*] 06/29/2024 12:58 241.3(109.45)[35*] 06/19/2024 06:20 234(106.14)[34*] 06/07/2024 11:53 231.7(105.10)[33*] 06/05/2024 08:06 235.7(106.91)[34*] 05/17/2024 08:37 233.1(105.73)[34*] 04/07/2024 10:01 231(104.78)[33*] 02/17/2024 12:10 227.2(103.06)[33*] 02/10/2024 11:09 228.9(103.83)[33*] 02/02/2024 10:03 230.3(104.46)[33*] PHYSICAL EXAM : GEN: NAD, sitting up in recliner chair HEENT:Sclera non-icteric, slight decreased hearing.Pharynx benign Heart: RRR, no murmurs, S1, S2, midline incision to chest healing well scabs, no redness, dressing intact; chest pacemaker/defib with steri strips intact, no redness, no drainage. No Lungs:Clear to auscultation, no wheezing ABD: soft, nontender, BSx4, 3 small incsions epigastric areas with scabs Genitourinary: Patient voiding without difficulty Musculoskeletal: Extremities mobile Neurological: A&O x3, grossly intact, Skin: L medial arm incision without redness or drainage. Scab dried with tape dressing peeling off. ASSESSMENT & PLAN: #CAD, s/p CABGx3, started on Plavix and continued on aspirin, statin, but Coreg held due to hypotension. Patient now has pacemaker for complete heart block. Follow-up with CT surgery in 4 weeks. 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 Coreg, Imdur, Entresto held [...] block, pacemaker placed. # Diabetic neuropathy, painful. -On Lyrica and duloxetine. # Anemia post procedurally, recent hemoglobin 8.3. Continue monitoring. #HTN-relative hypotension at the hospital, will monitor off Coreg, Imdur, Entresto. -bp starting to trend up will monitor and replace slowly # Knee osteoarthritis, patient does not report knee pain. # Obstructive sleep apnea, has home CPAP unit. # Diet: Soft, diabetic, low-sodium. #Generalized weakness: consult PT/OT for strength and mobilization of the . Previously ambulated with a walker or cane, lives in a house with plan to return on home with son. # Other issues: History of pituitary adenoma, obesity, hepatic steatosis. Previously on Ozempic, will monitor his appetite and glucose in order to restart or not. History of kidney injury in childhood, patient does not recall exactly details. # Weight: will monitor # Pain: -acetaminophen prn pain -vet educated on non-pharmacologic methods available for pain relief # Bowels: -stable -vet educated to inform nursing staff/provider immediately if no BM for 3 days # Sleep: -vet educated on good sleep hygiene # All medications including non-VA and OTC were reviewed with the patient and/or caregiver and no discrepancies exist. # Pt. verbalized understanding plan of care and agrees with it. Performed one to one counseling and education with patient regardin. Disease process 2. Recent Labs: CBC WBC 4.1 10*3/uL 08/14/2024 06:00 RBC 3.20 L 10*6/uL 08/14/2024 06:00 HGB 8.0 L g/dL 08/14/2024 06:00 HCT 25.6 L % 08/14/2024 06:00 MCV 80.0 fL 08/14/2024 06:00 MCH 25.0 L pg 08/14/2024 06:00 MCHC 31.3 L g/dL 08/14/2024 06:00 RDW 15.9 H % 08/14/2024 06:00 PLT 167 10*3/uL 08/14/2024 06:00 MPV 9.1 fL 08/14/2024 06:00 NEUTROPHILS, AUTO % 56 % 08/14/2024 06:00 LYMPHOCYTES, AUTO % 23 % 08/14/2024 06:00 MONOCYTES, AUTO % 11 % 08/14/2024 06:00 EOSINOPHILS, AUTO % 8 % 08/14/2024 06:00 BASOPHILS, AUTO % 2 % 08/14/2024 06:00 NEUTROPHILS, ABSOLUTE 2.27 10*3/uL 08/14/2024 06:00 LYMPHOCYTES, ABSOLUTE 0.94 10*3/uL 08/14/2024 06:00 MONOCYTES, ABSOLUTE 0.46 10*3/uL 08/14/2024 06:00 EOSINOPHILS, ABSOLUTE 0.32 10*3/uL 08/14/2024 06:00 BASOPHILS, ABSOLUTE 0.07 10*3/uL 08/14/2024 06:00 IMMATURE PLT FRACTION 1.6 % 07/20/2024 11:18 TEARDROPS 1+ 04/07/2024 11:40 CMP: SODIUM 134 L mEq/L 08/14/2024 06:00 POTASSIUM 4.1 mEq/L 08/14/2024 06:00 CHLORIDE 103 mEq/L 08/14/2024 06:00 UREA NITROGEN 13.6 mg/dL 08/14/2024 06:00 CREATININE 0.75 mg/dL 08/14/2024 06:00 CALCIUM 8.7 mg/dL 08/14/2024 06:00 PROTEIN 6.5 g/dL 08/14/2024 06:00 ALBUMIN 2.9 L g/dL 08/14/2024 06:00 ALKALINE PHOSPHATASE 144 U/L 08/14/2024 06:00 ALT/SGPT 19 U/L 08/14/2024 06:00 AST/SGOT 29 U/L 08/14/2024 06:00 TOTAL BILIRUBIN 0.5 mg/dL 08/14/2024 06:00 CARBON DIOXIDE 21 L mEq/L 08/14/2024 06:00 GLUCOSE 109 H mg/dL 08/14/2024 06:00 EGFR (CKD-EPI 2020) 95.88 08/14/2024 06:00 HGB A1C (last): HGA1C 7.0 H % 03/06/2024 09:52 LDL(calculated): CALCULATED LDL 117 mg/dL 04/07/2024 11:40 HDL:34 mg/dL L (04/07/24 11:40) Cholesterol:CHOLESTEROL 180 mg/dL 04/07/2024 11:40 Triglycerides: 145 mg/dL (04/07/24 11:40) PSA:PROST. SPECIFIC AG.(PB-STL) 0.919 ng/mL 03/06/2024 09:52 Urine Micral: No MICRAL data found Vit D: VITAMIN D, 25-HYDROXY 8.9 L ng/mL 08/14/2024 06:00 No SED RAT (STL-PB) data found TSH 3.510 uIU/mL 06/05/2024 09:00 Life Sustaining Treatment Orders /es/ Simeon Reddy APN,[employer]IV[employer]ITY MANAGER-BC Advanced Practice Nurse Signed: 08/14/2024 14:53 Receipt Acknowledged By: 08/14/2024 15:18 /shen/ JUDIT PERKINS PHYSICIAN SIMEON WANG [facility]
--- OUTSIDE RECORDS SUMMARY | 2024-11-17 04:05 | XMS_ITS ---
[place] DAILY HOSPITALIZATION DATA [facility] Encounter Summary Created on: November 16, 2024 CHET WALKER : 1950 Sex: Male Author Name [facility] [facility] [place] Address [address] [place] [address] Care Team Providers Care Information Management Manager Name Role Phone MANUEL BAIRD Primary [...] PART A Apr 08, 2017 PART A [id number] [phone] ASHLEY WALKER PATIENT Selected Encounter This section includes the information on record at [place] for the Encounter. Date/Time Encounter Type Encounter Description Reason Pro vider Source Aug 14, 2024 10:09 PM Inpatient Visit DAILY HOSPITALIZATION DATA [facility] Encounter Template Text not used by PA [...] 24, 2024 10:00 AM AMBULATORY - MEDICINE [facility] Aug 24, 2024 10:30 AM AMBULATORY - MEDICINE [facility] Aug 30, 2024 09:30 AM AMBULATORY MEDICINE [facility] Aug 31, 2024 01:00 PM AMBULATORY - SURGERY [facility] Sep 21, 2024 01:30 PM AMBULATORY - MEDICINE [facility] Sep 22, 2024 11:00 AM AMBULATORY - MEDICINE [facility] Sep 29, 2024 12:30 PM AMBULATORY - MEDICINE [facility] Oct 02, 2024 09:30 AM AMBULATORY - MEDICINE [facility] Nov 20, 2024 10:30 AM AMBULATORY - SURGERY [facility] Nov 21, 2024 10:00 AM AMBULATORY - NONE [facility] Dec 11, 2024 10:30 AM AMBULATORY - MEDICINE [facility] Active, Pending, and Scheduled Orders This section includes a listing of several types of active, pending, and scheduled orders, including clinic medications orders, diagnostic test orders, procedure orders and consult orders; where the start date of the order is 45 days before the date of the Encounter or 45 days after the date of theEncounter. The data comes from all [facility]. Test Date/Time Test Type Test Details Facility Name Aug 02, 2024 12:00 AM Laboratory - Chemistry Order CBC BLOOD STAT SP [facility] Aug 02, 2024 12:00 AM Laboratory - Chemistry Order COMPREHENSIVE METABOLIC PANEL GREEN LI/HEP BLD/PLAS PLASMA SP [facility] Aug 17, 2024 03:47 PM Consult Order [facility] Cons Bedside [facility] Lab Results: +/- 30 [...] Range Comment Aug 23, 2024 08:21 AM [facility] CBC Specimen Type: BLOOD No comment entered. Ordering Provider: SILVIA REDDY Report Released Date/Time: Aug 22, 2024 11:19 AM Reporting Lab: [facility] [address] Performing Lab: [facility] [address] WBC 4.0 10*3/uL 3.6-11.2 RBC 3.65 10*6/uL [...] ABSOLUTE 0.04 10*3/uL 0.00-0.20 Aug 23, 2024 08:21 AM [facility] MAGNESIUM Specimen Type: PLASMA No comment entered. Ordering Provider: SILVIA REDDY Report Released Date/Time: Aug 22, 2024 11:26 AM Reporting Lab: [facility] [address] Performing Lab: [facility] [address] MAGNESIUM 1.8 mg/dL 1.6-2.6 Aug 23, 2024 05:12 AM [facility] GLUCOSE,BLOOD-poct (STL) Specimen Type: BLOOD Comment: Test Performed by: [id number] Meter #: [id number] Ordering Provider: SILVIA REDDY Report Released Date/Time: Aug 23, 2024 05:23 AM Reporting Lab: [facility] [address] Performing Lab: [facility] [address] [facility] [address] GLUCOSE,BLOOD- poct (STL) 99 mg/dL 72-99 Aug 23, 2024 02:45 AM [facility] OCCULT BLOOD FIT X1 SCREEN Specimen Type: FECES No comment entered. Ordering Provider: SILVIA REDDY Report Released Date/Time: Aug 22, 2024 11:23 AM Reporting Lab: [facility] [address] [facility] [address] Performing Lab: [place] [address] [facility] [address] OCCULT BLOOD (FIT) #1 OF 1 Negative Negative Aug 22, 2024 07:30 PM [facility] OCCULT BLOOD FIT X1 SCREEN Specimen Type: FECES No comment entered. Ordering Provider: SILVIA REDDY Report Released Date/Time: Aug 22, 2024 11:23 AM Reporting Lab: [facility] [address] [facility] [address] Performing Lab: [facility] [address] [facility] [address] OCCULT BLOOD (FIT) #1 OF 1 Negative Negative Aug 22, 2024 06:15 PM [facility] OCCULT BLOOD FIT X1 SCREEN Specimen Type: FECES No comment entered. Ordering Provider: SILVIA REDDY Report Released Date/Time: Aug 22, 2024 11:23 AM Reporting Lab: [place] [address] [facility] [address] Performing Lab: [facility] [address] [facility] [address] OCCULT BLOOD (FIT) #1 OF 1 Negative Negative Aug 22, 2024 04:24 PM [facility] GLUCOSE,BLOOD-poct (STL) Specimen Type: BLOOD Comment: Test Performed by: [id number] Meter #: [id number] Ordering Provider: SILVIA REDDY Report Released Date/Time: Aug 22, 2024 04:36 PM Reporting Lab: [facility] [address] Performing Lab: [facility] [address] [facility] [address] GLUCOSE,BLOOD- poct (STL) 176 mg/dL H -Aug 22, 2024 04:23 PM [facility] GLUCOSE,BLOOD-poct (STL) Specimen Type: BLOOD Comment: Test Performed by: [id number] Meter #: [id number] Ordering Provider: SILVIA REDDY Report Released Date/Time: Aug 22, 2024 04:36 PM Reporting Lab: [facility] [facility] [address] Performing Lab: [facility] [facility] [address] GLUCOSE,BLOOD- poct (STL) 221 mg/dL H 72-Aug 22, 2024 11:15 AM [facility] GLUCOSE,BLOOD-poct (STL) Specimen Type: BLOOD Comment: Test Performed by: [id number] Meter #: [id number] Ordering Provider: SILVIA REDDY Report Released Date/Time: Aug 22, 2024 11:27 AM Reporting Lab: [facility] [facility] [address] Performing Lab: [facility] [facility] [address] GLUCOSE,BLOOD- poct (STL) 140 mg/dL H 72-Aug 22, 2024 08:03 AM [facility] COMPREHENSIVE METABOLIC PANEL Specimen Type: PLASMA Comment: No hemolysis noted. Ordering Provider: SILVIA REDDY Report Released Date/Time: Aug 17, 2024 01:18 PM Reporting Lab: [facility] [address] [place] [address] Performing Lab: [address] [address] CREATININE 0.80 mg/dL 0.7-1.3 UREA NITROGEN 9.7 [...] 94.0 >60 Aug 22, 2024 08:03 AM [facility] FERRITIN Specimen Type: SERUM No comment entered. Ordering Provider: JUDIT PERKINS Report Released Date/Time: Aug 18, 2024 11:01 AM Reporting Lab: [facility] [address] [place] [address] Performing Lab: [address] [address] FERRITIN 79.50 ng/mL 22-275 Aug 22, 2024 08:03 AM [facility] CBC Specimen Type: BLOOD No comment entered. Ordering Provider: SILVIA REDDY Report Released Date/Time: Aug 17, 2024 01:18 PM Reporting Lab: [facility] [address] Performing Lab: [facility] [facility] [address] WBC 3.5 10*3/uL L 3.6-11.2 RBC 3.23 [...] NRBC% 0 Aug 22, 2024 08:03 AM [facility] IRON/TIBC PROFILE Specimen Type: SERUM No comment entered. Ordering Provider: JUDIT PERKINS Report Released Date/Time: Aug 18, 2024 11:01 AM Reporting Lab: [facility] [address] [facility] [address] Performing Lab: [facility] [address] [place] [address] TIBC 283 ug/dL 250-450 TRANSFERRIN 226 mg/dL 163-344 IRON SATURATION 7 L 20-50 IRON 19 ug/dL L 65-175 Aug 22, 2024 08:03 AM [facility] B12 Specimen Type: SERUM No comment entered. Ordering Provider: JUDIT PERKINS Report Released Date/Time: Aug 18, 2024 11:01 AM Reporting Lab: [facility] [facility] [address] Performing Lab: [facility] [facility] [address] B12 631 pg/mL 213-816 Aug 22, 2024 05:03 AM [facility] GLUCOSE,BLOOD-poct (STL) Specimen Type: BLOOD Comment: Test Performed by: [id number] Meter #: [id number] Ordering Provider: SILVIA REDDY Report Released Date/Time: Aug 22, 2024 06:17 AM Reporting Lab: [facility] #[address] [facility] [address] Performing Lab: [facility] [address] [facility] [address] GLUCOSE,BLOOD- poct (STL) 170 mg/dL H 72-Aug 21, 2024 04:32 PM [facility] GLUCOSE,BLOOD-poct (STL) Specimen Type: BLOOD Comment: Test Performed by: [id number] Meter #: [id number] Ordering Provider: SILVIA REDDY Report Released Date/Time: Aug 21, 2024 04:49 PM Reporting Lab: [facility] [facility] [address] Performing Lab: [facility] [facility] [address] GLUCOSE,BLOOD- poct (STL) 169 mg/dL H 72-99 Aug 21, 2024 11:53 AM [facility] GLUCOSE,BLOOD-poct (STL) Specimen Type: BLOOD Comment: Test Performed by: [id number] Meter #: [id number] Ordering Provider: SILVIA REDDY Report Released Date/Time: Aug 21, 2024 12:11 PM Reporting Lab: [facility] #[address] [facility] [address] Performing Lab: [facility] [address] [facility] [address] GLUCOSE,BLOOD- poct (STL) 149 mg/dL H 72-99 Aug 21, 2024 05:10 AM [facility] GLUCOSE,BLOOD-poct (STL) Specimen Type: BLOOD Comment: Test Performed by: [id number] Meter #: [id number] Ordering Provider: SILVIA REDDY Report Released Date/Time: Aug 21, 2024 05:27 AM Reporting Lab: [facility]1 [place] [address] Performing Lab: [facility] #[address] [place] [phone] GLUCOSE,BLOOD- poct (STL) 118 mg/dL H 72-99 Aug 20, 2024 04:38 PM [facility] GLUCOSE,BLOOD-poct (STL) Specimen Type: BLOOD Comment: Test Performed by: [id number] Meter #: [id number] Ordering Provider: SILVIA REDDY Report Released Date/Time: Aug 21, 2024 01:55 AM Reporting Lab: [facility] [address] [place] [address] Performing Lab: [facility] [address] [place] [address] GLUCOSE,BLOOD- poct (STL) 169 mg/dL H 72-Aug 20, 2024 04:36 PM [facility] GLUCOSE,BLOOD-poct (STL) Specimen Type: BLOOD Comment: Test Performed by: [id number] Meter #: [id number] Ordering Provider: SILVIA REDDY Report Released Date/Time: Aug 21, 2024 01:55 AM Reporting Lab: [facility] [place] [address] Performing Lab: [facility] [address] [place] [address] GLUCOSE,BLOOD- poct (STL) 395 mg/dL H 72-99 Aug 20, 2024 11:45 AM [facility] GLUCOSE,BLOOD-poct (STL) Specimen Type: BLOOD Comment: Test Performed by: [id number] Meter #: [id number] Ordering Provider: SILVIA REDDY Report Released Date/Time: Aug 20, 2024 11:56 AM Reporting Lab: [facility] [facility] [address] Performing Lab: [facility] #[address] [facility] [address] GLUCOSE,BLOOD- poct (STL) 169 mg/dL H 72-Aug 20, 2024 05:06 AM [facility] GLUCOSE,BLOOD-poct (STL) Specimen Type: BLOOD Comment: Test Performed by: [id number] Meter #: [id number] Ordering Provider: SILVIA REDDY Report Released Date/Time: Aug 20, 2024 06:05 AM Reporting Lab: [facility] #[address] [facility] [address] Performing Lab: [facility] #[address] [facility] [address] GLUCOSE,BLOOD- poct (STL) 115 mg/dL H 72-Aug 19, 2024 04:23 PM [facility] GLUCOSE,BLOOD-poct (STL) Specimen Type: BLOOD Comment: Test Performed by: [id number] Meter #: [id number] Ordering Provider: SILVIA REDDY Report Released Date/Time: Aug 19, 2024 05:54 PM Reporting Lab: [facility] #[address] [facility] [address] Performing Lab: [facility] #[address] [facility] [address] GLUCOSE,BLOOD- poct (STL) 137 mg/dL H 72-99 Aug 19, 2024 11:28 AM [facility] GLUCOSE,BLOOD-poct (STL) Specimen Type: BLOOD Comment: Test Performed by: [id number] Meter #: [id number] Ordering Provider: SILVIA REDDY Report Released Date/Time: Aug 19, 2024 11:51 AM Reporting Lab: [facility] #[address] [facility] [address] Performing Lab: [facility] #[address] [facility] [address] GLUCOSE,BLOOD- poct (STL) 190 mg/dL H 72-99 Aug 19, 2024 05:21 AM [facility] GLUCOSE,BLOOD-poct (STL) Specimen Type: BLOOD Comment: Test Performed by: [id number] Meter #: [id number] Ordering Provider: SILVIA REDDY Report Released Date/Time: Aug 19, 2024 05:56 AM Reporting Lab: [facility] #[address] [facility] [address] Performing Lab: [facility] #[address] [facility] [address] GLUCOSE,BLOOD- poct (STL) 130 mg/dL H Aug 18, 2024 04:49 PM [facility] GLUCOSE,BLOOD-poct (STL) Specimen Type: BLOOD Comment: Test Performed by: [id number] Meter #: [id number] Ordering Provider: SILVIA REDDY Report Released Date/Time: Aug 18, 2024 05:01 PM Reporting Lab: [facility] [facility] [address] Performing Lab: [facility] #[address] [facility] [address] GLUCOSE,BLOOD- poct (STL) 129 mg/dL H Aug 18, 2024 11:23 AM [facility] GLUCOSE,BLOOD-poct (STL) Specimen Type: BLOOD Comment: Test Performed by: [id number] Meter #: [id number] Ordering Provider: SILVIA REDDY Report Released Date/Time: Aug 18, 2024 11:41 AM Reporting Lab: [facility] #[address] [facility] [address] Performing Lab: [facility] #[address] [facility] [address] GLUCOSE,BLOOD- poct (STL) 180 mg/dL H Aug 18, 2024 05:08 AM [facility] GLUCOSE,BLOOD-poct (STL) Specimen Type: BLOOD Comment: Test Performed by: [id number] Meter #: [id number] Ordering Provider: SILVIA REDDY Report Released Date/Time: Aug 18, 2024 05:31 AM Reporting Lab: [facility] [place] [address] Performing Lab: [facility] #[address] [facility] [address] GLUCOSE,BLOOD- poct (STL) 127 mg/dL H -Aug 17, 2024 07:32 PM [facility] GLUCOSE,BLOOD-poct (STL) Specimen Type: BLOOD Comment: Test Performed by: [id number] Meter #: [id number] Ordering Provider: SILVIA REDDY Report Released Date/Time: Aug 17, 2024 07:59 PM Reporting Lab: [facility] #[address] [place] [address] Performing Lab: [facility] #[address] [place] [address] GLUCOSE,BLOOD- poct (STL) 154 mg/dL H -Aug 17, 2024 04:24 PM [facility] GLUCOSE,BLOOD-poct (STL) Specimen Type: BLOOD Comment: Test Performed by: [id number] Meter #: [id number] Ordering Provider: SILVIA REDDY Report Released Date/Time: Aug 17, 2024 04:35 PM Reporting Lab: [facility] [place] [address] Performing Lab: [facility] [place] [address] GLUCOSE,BLOOD- poct (STL) 178 mg/dL H -Aug 17, 2024 05:09 AM [facility] GLUCOSE,BLOOD-poct (STL) Specimen Type: BLOOD Comment: Test Performed by: [id number] Meter #: [id number] Ordering Provider: SILVIA REDDY Report Released Date/Time: Aug 17, 2024 05:54 AM Reporting Lab: [facility] [address] Performing Lab: [facility] #[address] [facility] [address] GLUCOSE,BLOOD- poct (STL) 124 mg/dL H 72-Aug 16, 2024 07:40 PM [facility] GLUCOSE,BLOOD-poct (STL) Specimen Type: BLOOD Comment: Test Performed by: [id number] Meter #: [id number] Ordering Provider: SILVIA REDDY Report Released Date/Time: Aug 16, 2024 08:28 PM Reporting Lab: [facility] #[address] [facility] [address] Performing Lab: [facility] #[address] [facility] [address] GLUCOSE,BLOOD- poct (STL) 144 mg/dL H -Aug 16, 2024 04:19 PM [facility] GLUCOSE,BLOOD-poct (STL) Specimen Type: BLOOD Comment: Test Performed by: [id number] Meter #: [id number] Ordering Provider: SILVIA REDDY Report Released Date/Time: Aug 16, 2024 04:45 PM Reporting Lab: [facility] #[address] [facility] [address] Performing Lab: [facility] #[address] [facility] [address] GLUCOSE,BLOOD- poct (STL) 138 mg/dL H 72-Aug 16, 2024 11:52 AM [facility] GLUCOSE,BLOOD-poct (STL) Specimen Type: BLOOD Comment: Test Performed by: [id number] Meter #: [id number] Ordering Provider: SILVIA REDDY Report Released Date/Time: Aug 16, 2024 12:04 PM Reporting Lab: [facility] #[address] [facility] [address] Performing Lab: [facility] #[address] [facility] [address] GLUCOSE,BLOOD- poct (STL) 135 mg/dL H 72-99 Aug 16, 2024 05:24 AM [facility] GLUCOSE,BLOOD-poct (STL) Specimen Type: BLOOD Comment: Test Performed by: [id number] Meter #: [id number] Ordering Provider: SILVIA REDDY Report Released Date/Time: Aug 16, 2024 05:38 AM Reporting Lab: [facility] #[address] [facility] [address] Performing Lab: [facility] [facility] [address] GLUCOSE,BLOOD- poct (STL) 151 mg/dL H Aug 15, 2024 07:31 PM [facility] GLUCOSE,BLOOD-poct (STL) Specimen Type: BLOOD Comment: Test Performed by: [id number] Meter #: [id number] Ordering Provider: SILVIA REDDY Report Released Date/Time: Aug 15, 2024 08:07 PM Reporting Lab: [facility] [address] Performing Lab: [facility] [address] GLUCOSE,BLOOD- poct (STL) 173 mg/dL H Aug 15, 2024 04:18 PM [facility] GLUCOSE,BLOOD-poct (STL) Specimen Type: BLOOD Comment: Test Performed by: [id number] Meter #: [id number] Ordering Provider: SILVIA REDDY Report Released Date/Time: Aug 15, 2024 04:59 PM Reporting Lab: [facility] [address] Performing Lab: [facility] #[facility] [address] GLUCOSE,BLOOD- poct (STL) 136 mg/dL H Aug 15, 2024 04:16 PM [facility] GLUCOSE,BLOOD-poct (STL) Specimen Type: BLOOD Comment: Test Performed by: [id number] Meter #: [id number] Ordering Provider: SILVIA REDDY Report Released Date/Time: Aug 15, 2024 04:59 PM Reporting Lab: [facility] #1 [place] [address] Performing Lab: [facility] #[address] [facility] [address] GLUCOSE,BLOOD- poct (STL) 194 mg/dL H 72-Aug 15, 2024 11:39 AM [facility] GLUCOSE,BLOOD-poct (STL) Specimen Type: BLOOD Comment: Test Performed by: [id number] Meter #: [id number] Ordering Provider: SILVIA REDDY Report Released Date/Time: Aug 15, 2024 12:00 PM Reporting Lab: [facility] #[address] [place] [address] Performing Lab: [facility] [place] [address] GLUCOSE,BLOOD- poct (STL) 127 mg/dL H -Aug 15, 2024 05:07 AM [facility] GLUCOSE,BLOOD-poct (STL) Specimen Type: BLOOD Comment: Test Performed by: [id number] Meter #: [id number] Ordering Provider: SILVIA REDDY Report Released Date/Time: Aug 15, 2024 06:14 AM Reporting Lab: [facility] #[address] [place] [address] Performing Lab: [facility] [place] [address] GLUCOSE,BLOOD- poct (STL) 151 mg/dL H -Aug 14, 2024 04:22 PM [facility] GLUCOSE,BLOOD-poct (STL) Specimen Type: BLOOD Comment: Test Performed by: [id number] Meter #: [id number] Ordering Provider: SILVIA REDDY Report Released Date/Time: Aug 14, 2024 04:52 PM Reporting Lab: [facility] [address] Performing Lab: [facility] [address] GLUCOSE,BLOOD- poct (STL) 129 mg/dL H 72-99 Aug 14, 2024 11:21 AM [facility] GLUCOSE,BLOOD-poct (STL) Specimen Type: BLOOD Comment: Test Performed by: [id number] Meter #: [id number] Ordering Provider: SILVIA REDDY Report Released Date/Time: Aug 14, 2024 11:37 AM Reporting Lab: [facility] [address] Performing Lab: [facility] [address] GLUCOSE,BLOOD- poct (STL) 135 mg/dL H 72-Aug 14, 2024 06:59 AM [facility] QUANTIFERON-TB,4 TUBE Specimen Type: BLOOD Comment: normalcy [...] For additional information, please refer to http://education. Gogobot/faq/WLV446 (This link is being provided for information/ educational purposes only.) Test Performed by [employer], Cyl[facility], [address] [place] [address] Tommie Garcia M.D., Ph.D., Director of Laboratories , [facility] [id number] Ordering Provider: SILVIA REDDY Report Released Date/Time: Aug 11, 2024 03:58 PM Reporting Lab: [facility] [address] [facility] [address] Performing Lab: [facility] [id number] [place] [address] .NIL - QUANTIFERON 0.04 [IU]/mL .MITOGEN-NIL 0.39 [IU]/mL .QUANTIFERON INDETERMINATE NEGATIVE .TB1-NIL <0.00 [IU]/mL .TB2-NIL <0.00 [IU]/mL Aug 14, 2024 06:59 AM [facility] MAGNESIUM Specimen Type: PLASMA Comment: No hemolysis noted. Ordering Provider: SILVIA REDDY Report Released Date/Time: Aug 11, 2024 03:58 PM Reporting Lab: [facility] [place] [phone] Performing Lab: [facility] [address] MAGNESIUM 1.9 mg/dL 1.6-2.6 Aug 14, 2024 06:59 AM [facility] B12 Specimen Type: SERUM No comment entered. Ordering Provider: SILVIA REDDY Report Released Date/Time: Aug 11, 2024 03:58 PM Reporting Lab: [facility] [address] Performing Lab: [facility] [address] B12 757 pg/mL 213-816 Aug 14, 2024 06:59 AM [facility] FOLATE (STL-MA) Specimen Type: SERUM No comment entered. Ordering Provider: SILVIA REDDY Report Released Date/Time: Aug 11, 2024 03:58 PM Reporting Lab: [facility] [address] Performing Lab: [facility] [address] FOLATE (STL-MA) 6.8 ng/mL L 7-20 Aug 14, 2024 06:59 AM [facility] VITAMIN D, 25-HYDROXY Specimen Type: SERUM No comment entered. Ordering Provider: SILVIA REDDY Report Released Date/Time: Aug 11, 2024 03:58 PM Reporting Lab: [facility] [address] Performing Lab: [facility] [address] VITAMIN D, 25-HYDROXY 8.9 ng/mL L 30-96 Aug 14, 2024 06:59 AM [facility] COMPREHENSIVE METABOLIC PANEL Specimen Type: PLASMA Comment: No hemolysis noted. Ordering Provider: SILVIA REDDY Report Released Date/Time: Aug 11, 2024 03:58 PM Reporting Lab: [facility] [address] Performing Lab: [facility] [address] CREATININE 0.75 mg/dL 0.70-1.30 UREA NITROGEN 13.6 [...] Aug 14, 2024 06:59 AM [facility] CBC Specimen Type: BLOOD No comment entered. Ordering Provider: SILVIA REDDY Report Released Date/Time: Aug 11, 2024 03:58 PM Reporting Lab: [facility] [id number] Performing Lab: [facility] [id number] WBC 4.1 10*3/uL 3.6-11.2 RBC 3.20 10*6/uL [...] 10*3/uL 0.00-0.20 Aug 14, 2024 05:08 AM [facility] GLUCOSE,BLOOD-poct (STL) Specimen Type: BLOOD Comment: Test Performed by: [id number] Meter #: [id number] Ordering Provider: SILVIA REDDY Report Released Date/Time: Aug 14, 2024 05:52 AM Reporting Lab: [facility] [address] Performing Lab: [facility] [facility] [id number] GLUCOSE,BLOOD- poct (STL) 135 mg/dL H 72-99 Aug 13, 2024 04:27 PM [facility] GLUCOSE,BLOOD-poct (STL) Specimen Type: BLOOD Comment: Test Performed by: [id number] Meter #: [id number] Ordering Provider: SILVIA REDDY Report Released Date/Time: Aug 13, 2024 04:41 PM Reporting Lab: [facility] [address] Performing Lab: [facility] [address] GLUCOSE,BLOOD- poct (STL) 181 mg/dL H -Aug 13, 2024 11:33 AM [facility] GLUCOSE,BLOOD-poct (STL) Specimen Type: BLOOD Comment: Test Performed by: [id number] Meter #: [id number] Ordering Provider: SILVIA REDDY Report Released Date/Time: Aug 13, 2024 03:55 PM Reporting Lab: [facility] [address] Performing Lab: [facility] [place] [address] GLUCOSE,BLOOD- poct (STL) 140 mg/dL H Aug 13, 2024 05:54 AM [facility] GLUCOSE,BLOOD-poct (STL) Specimen Type: BLOOD Comment: Test Performed by: [id number] Meter #: [id number] Ordering Provider: SILVIA REDDY Report Released Date/Time: Aug 13, 2024 06:20 AM Reporting Lab: [facility] [address] Performing Lab: [facility] [address] GLUCOSE,BLOOD- poct (STL) 112 mg/dL H Aug 12, 2024 04:35 PM [facility] GLUCOSE,BLOOD-poct (STL) Specimen Type: BLOOD Comment: Test Performed by: [id number] Meter #: [id number] Ordering Provider: SILVIA REDDY Report Released Date/Time: Aug 12, 2024 04:47 PM Reporting Lab: [facility] [address] Performing Lab: [facility] [address] GLUCOSE,BLOOD- poct (STL) 128 mg/dL H 72-99 Aug 12, 2024 11:26 AM [facility] GLUCOSE,BLOOD-poct (STL) Specimen Type: BLOOD Comment: Test Performed by: [id number] Meter #: [id number] Ordering Provider: SILVIA REDDY Report Released Date/Time: Aug 12, 2024 11:45 AM Reporting Lab: [facility] [address] Performing Lab: [facility] [place] [address] GLUCOSE,BLOOD- poct (STL) 188 mg/dL H -Aug 12, 2024 06:13 AM [facility] GLUCOSE,BLOOD-poct (STL) Specimen Type: BLOOD Comment: Test Performed by: [id number] Meter #: [id number] Ordering Provider: SILVIA REDDY Report Released Date/Time: Aug 12, 2024 06:25 AM Reporting Lab: [facility] [address] Performing Lab: [facility] [address] GLUCOSE,BLOOD- poct (STL) 116 mg/dL H 72-99 Aug 11, 2024 04:10 PM [facility] GLUCOSE,BLOOD-poct (STL) Specimen Type: BLOOD Comment: Test Performed by: [id number] Meter #: [id number] Ordering Provider: SILVIA REDDY Report Released Date/Time: Aug 11, 2024 04:27 PM Reporting Lab: [facility] [place] [address] Performing Lab: [facility] [address] GLUCOSE,BLOOD- poct (STL) 184 mg/dL H 72-99 Aug 11, 2024 01:44 PM [facility] MRSA SURVL NARES DNA Specimen Type: NARES [...] Aug 11, 2024 02:03 PM Reporting Lab: [address] [address] Performing Lab: [address] [address] MRSA SURVL NARES DNA Negative Negative Jul 20, 2024 11:18 AM [facility] APTT Specimen Type: PLASMA No comment entered. Ordering Provider: MANUEL BAIRD Report Released Date/Time: Jul 19, 2024 04:00 PM Reporting Lab: [address] [address] Performing Lab: [address] [address] APTT 32.1 s 26.7-39.9 Jul 20, 2024 11:18 AM [facility] PT/INR NEW (L-[place]) Specimen Type: PLASMA No comment entered. Ordering Provider: MANUEL BAIRD Report Released Date/Time: Jul 19, 2024 04:00 PM Reporting Lab: [address] [address] Performing Lab: [address] [address] PROTIME 14.4 s H 9.4-12.5 INR VALUE 1.3 {INR} Jul 20, 2024 11:18 AM [facility] CBC Specimen Type: BLOOD No comment entered. Ordering Provider: MANUEL BAIRD Report Released Date/Time: Jul 19, 2024 04:00 PM Reporting Lab: [facility] [address] [facility] [address] Performing Lab: [address] [address] WBC 4.7 10*3/uL 3.6-11.2 RBC 4.86 10*6/uL [...] 1.6 1.0-7.0 Jul 17, 2024 08:02 AM [facility] BASIC METABOLIC PANEL Specimen Type: PLASMA Comment: No hemolysis noted. Ordering Provider: MARY SERNA Report Released Date/Time: Jun 07, 2024 01:43 PM Reporting Lab: [facility] [address] [place] [phone] Performing Lab: [address] [address] CREATININE 0.85 mg/dL 0.7-1.3 UREA NITROGEN 15.2 [...] 09:21 PM 98.4 84 119/62 18 97 [facility] Aug 14, 2024 08:00 PM 0 [facility] Aug 14, 2024 10:26 AM 0 [facility] Aug 14, 2024 09:28 AM 97.7 69 118/68 18 97 [facility] Aug 14, 2024 05:48 AM 97.7 78 136/87 16 97 [facility] N Advance Directives: All historical [...] ADVANCE DIRECTIVE DISCUSSION ERICK BARDALES [facility]
--- OUTSIDE RECORDS SUMMARY | 2024-11-17 04:05 | XMS_ITS | Encounter Summary ---
Author Name [facility] [place] [facility] [place] [facility] [place] Address [address] [place] [address] Care Team Providers Care Ship Mate Name Role Phone MANUEL BAIRD Primary Care [...] PART A Apr 08, 2017 PART A [id number] [phone] ASHLEY WALKER PATIENT Selected Encounter This section includes the information on record at [place] for the Encounter. Date/Time Encounter Type Encounter Description Reason Pro vider Source Aug 14, 2024 12:00 AM Inpatient Visit EVENT (HISTORICAL) IHE Encounter Template Text not [...] 20 appointments. The data comes from all [facility]. Appointment Date/Time Appointment Type Appointme nt Facility Name Aug 24, 2024 10:00 AM AMBULATORY - MEDICINE [facility] Aug 24, 2024 10:30 AM AMBULATORY - MEDICINE [facility] Aug 30, 2024 09:30 AM AMBULATORY MEDICINE [facility] Aug 31, 2024 01:00 PM AMBULATORY - SURGERY [facility] Sep 21, 2024 01:30 PM AMBULATORY - MEDICINE [facility] Sep 22, 2024 11:00 AM AMBULATORY - MEDICINE [facility] Sep 29, 2024 12:30 PM AMBULATORY - MEDICINE [facility] Oct 02, 2024 09:30 AM AMBULATORY - MEDICINE [facility] Nov 20, 2024 10:30 AM AMBULATORY - SURGERY [facility] Nov 21, 2024 10:00 AM AMBULATORY - NONE [facility] Dec 11, 2024 10:30 AM AMBULATORY - MEDICINE [facility] Active, Pending, and Scheduled Orders This section includes a listing of several types of active, pending, and scheduled orders, including clinic medications orders, diagnostic test orders, procedure orders and consult orders; where the start date of the order is 45 days before the date of the Encounter or 45 days after the date of theEncounter. The data comes from all [facility]. Test Date/Time Test Type Test Details Facility Name Aug 02, 2024 12:00 AM Laboratory - Chemistry Order CBC BLOOD STAT SP [facility] Aug 02, 2024 12:00 AM Laboratory - Chemistry Order COMPREHENSIVE METABOLIC PANEL GREEN LI/HEP BLD/PLAS PLASMA SP [facility] Aug 17, 2024 03:47 PM Consult Order [facility] Cons Bedside [facility] Lab Results: +/- 30 [...] Range Comment Aug 23, 2024 08:21 AM [facility] MAGNESIUM Specimen Type: PLASMA No comment entered. Ordering Provider: SILVIA REDDY Report Released Date/Time: Aug 22, 2024 11:26 AM Reporting Lab: [facility] [address] Performing Lab: [facility] [address] MAGNESIUM 1.8 mg/dL 1.6-2.6 Aug 23, 2024 08:21 AM [facility] CBC Specimen Type: BLOOD No comment entered. Ordering Provider: SILVIA REDDY Report Released Date/Time: Aug 22, 2024 11:19 AM Reporting Lab: [facility] [address] Performing Lab: [facility] [address] WBC 4.0 10*3/uL 3.6-11.2 RBC 3.65 10*6/uL [...] 10*3/uL 0.00-0.20 Aug 23, 2024 05:12 AM [facility] GLUCOSE,BLOOD-poct (STL) Specimen Type: BLOOD Comment: Test Performed by: [id number] Meter #: [id number] Ordering Provider: SILVIA REDDY Report Released Date/Time: Aug 23, 2024 05:23 AM Reporting Lab: [facility] [address] Performing Lab: [facility] [address] GLUCOSE,BLOOD- poct (STL) 99 mg/dL 72-99 Aug 23, 2024 02:45 AM [facility] OCCULT BLOOD FIT X1 SCREEN Specimen Type: FECES No comment entered. Ordering Provider: SILVIA REDDY Report Released Date/Time: Aug 22, 2024 11:23 AM Reporting Lab: [address] [address] Performing Lab: [facility] [address] [place] [address] OCCULT BLOOD (FIT) #1 OF 1 Negative Negative Aug 22, 2024 07:30 PM [facility] OCCULT BLOOD FIT X1 SCREEN Specimen Type: FECES No comment entered. Ordering Provider: SILVIA REDDY Report Released Date/Time: Aug 22, 2024 11:23 AM Reporting Lab: [facility] [address] [place] [address] Performing Lab: [facility] [address] [place] [address] OCCULT BLOOD (FIT) #1 OF 1 Negative Negative Aug 22, 2024 06:15 PM [facility] OCCULT BLOOD FIT X1 SCREEN Specimen Type: FECES No comment entered. Ordering Provider: SILVIA REDDY Report Released Date/Time: Aug 22, 2024 11:23 AM Reporting Lab: [address] [address] Performing Lab: [place] [address] [address] [facility] [address] OCCULT BLOOD (FIT) #1 OF 1 Negative Negative Aug 22, 2024 04:24 PM [facility] GLUCOSE,BLOOD-poct (STL) Specimen Type: BLOOD Comment: Test Performed by: [id number] Meter #: [id number] Ordering Provider: SILVIA REDDY Report Released Date/Time: Aug 22, 2024 04:36 PM Reporting Lab: [facility] [address] Performing Lab: [facility] [facility] [address] GLUCOSE,BLOOD- poct (STL) 176 mg/dL H -Aug 22, 2024 04:23 PM [facility] GLUCOSE,BLOOD-poct (STL) Specimen Type: BLOOD Comment: Test Performed by: [id number] Meter #: [id number] Ordering Provider: SILVIA REDDY Report Released Date/Time: Aug 22, 2024 04:36 PM Reporting Lab: [facility] [address] Performing Lab: [facility] [address] GLUCOSE,BLOOD- poct (STL) 221 mg/dL H 72-Aug 22, 2024 11:15 AM [facility] GLUCOSE,BLOOD-poct (STL) Specimen Type: BLOOD Comment: Test Performed by: [id number] Meter #: [id number] Ordering Provider: SILVIA REDDY Report Released Date/Time: Aug 22, 2024 11:27 AM Reporting Lab: [facility] [address] Performing Lab: [facility] [address] GLUCOSE,BLOOD- poct (STL) 140 mg/dL H 72-Aug 22, 2024 08:03 AM [facility] FERRITIN Specimen Type: SERUM No comment entered. Ordering Provider: JUDIT PERKINS Report Released Date/Time: Aug 18, 2024 11:01 AM Reporting Lab: [facility] [address] [facility] [address] Performing Lab: [facility] [address] [facility] [address] FERRITIN 79.50 ng/mL 22-275 Aug 22, 2024 08:03 AM [facility] B12 Specimen Type: SERUM No comment entered. Ordering Provider: JUDIT PERKINS Report Released Date/Time: Aug 18, 2024 11:01 AM Reporting Lab: [facility] [address] Performing Lab: [facility] [address] B12 631 pg/mL 213-816 Aug 22, 2024 08:03 AM [facility] IRON/TIBC PROFILE Specimen Type: SERUM No comment entered. Ordering Provider: JUDIT PERKINS Report Released Date/Time: Aug 18, 2024 11:01 AM Reporting Lab: [facility] [address] [facility] [address] Performing Lab: [address] [address] TIBC 283 ug/dL 250-450 TRANSFERRIN 226 mg/dL 163-344 IRON SATURATION 7 L 20-50 IRON 19 ug/dL L 65-175 Aug 22, 2024 08:03 AM [facility] COMPREHENSIVE METABOLIC PANEL Specimen Type: PLASMA Comment: No hemolysis noted. Ordering Provider: SILVIA REDDY Report Released Date/Time: Aug 17, 2024 01:18 PM Reporting Lab: [facility] [address] [facility] [address] Performing Lab: [facility] [address] [place] [address] CREATININE 0.80 mg/dL 0.7-1.3 UREA NITROGEN 9.7 [...] 94.0 >60 Aug 22, 2024 08:03 AM [facility] CBC Specimen Type: BLOOD No comment entered. Ordering Provider: SILVIA REDDY Report Released Date/Time: Aug 17, 2024 01:18 PM Reporting Lab: [facility] [address] Performing Lab: [facility] [facility] [address] WBC 3.5 10*3/uL L 3.6-11.2 RBC 3.23 [...] NRBC% 0 Aug 22, 2024 05:03 AM [facility] GLUCOSE,BLOOD-poct (STL) Specimen Type: BLOOD Comment: Test Performed by: [id number] Meter #: [id number] Ordering Provider: SILVIA REDDY Report Released Date/Time: Aug 22, 2024 06:17 AM Reporting Lab: [facility] [facility] [address] Performing Lab: [facility] [address] GLUCOSE,BLOOD- poct (STL) 170 mg/dL H 72-Aug 21, 2024 04:32 PM [facility] GLUCOSE,BLOOD-poct (STL) Specimen Type: BLOOD Comment: Test Performed by: [id number] Meter #: [id number] Ordering Provider: SILVIA REDDY Report Released Date/Time: Aug 21, 2024 04:49 PM Reporting Lab: [facility] [facility] [address] Performing Lab: [facility] [address] GLUCOSE,BLOOD- poct (STL) 169 mg/dL H 72-99 Aug 21, 2024 11:53 AM [facility] GLUCOSE,BLOOD-poct (STL) Specimen Type: BLOOD Comment: Test Performed by: [id number] Meter #: [id number] Ordering Provider: SILVIA REDDY Report Released Date/Time: Aug 21, 2024 12:11 PM Reporting Lab: [facility] [facility] [address] Performing Lab: [facility] [address] [facility] [address] GLUCOSE,BLOOD- poct (STL) 149 mg/dL H 72-99 Aug 21, 2024 05:10 AM [facility] GLUCOSE,BLOOD-poct (STL) Specimen Type: BLOOD Comment: Test Performed by: [id number] Meter #: [id number] Ordering Provider: SILVIA REDDY Report Released Date/Time: Aug 21, 2024 05:27 AM Reporting Lab: [facility] [address] [place] [address] Performing Lab: [facility] [facility] [address] GLUCOSE,BLOOD- poct (STL) 118 mg/dL H 72-99 Aug 20, 2024 04:38 PM [facility] GLUCOSE,BLOOD-poct (STL) Specimen Type: BLOOD Comment: Test Performed by: [id number] Meter #: [id number] Ordering Provider: SILVIA REDDY Report Released Date/Time: Aug 21, 2024 01:55 AM Reporting Lab: [facility] [place] [address] Performing Lab: [facility] [address] [place] [address] GLUCOSE,BLOOD- poct (STL) 169 mg/dL H 72-Aug 20, 2024 04:36 PM [facility] GLUCOSE,BLOOD-poct (STL) Specimen Type: BLOOD Comment: Test Performed by: [id number] Meter #: [id number] Ordering Provider: SILVIA REDDY Report Released Date/Time: Aug 21, 2024 01:55 AM Reporting Lab: [facility] [address] [place] [address] Performing Lab: [facility] [facility] [address] GLUCOSE,BLOOD- poct (STL) 395 mg/dL H 72-99 Aug 20, 2024 11:45 AM [facility] GLUCOSE,BLOOD-poct (STL) Specimen Type: BLOOD Comment: Test Performed by: [id number] Meter #: [id number] Ordering Provider: SILVIA REDDY Report Released Date/Time: Aug 20, 2024 11:56 AM Reporting Lab: [facility] [place] [address] Performing Lab: [facility] [facility] [address] GLUCOSE,BLOOD- poct (STL) 169 mg/dL H -Aug 20, 2024 05:06 AM [facility] GLUCOSE,BLOOD-poct (STL) Specimen Type: BLOOD Comment: Test Performed by: [id number] Meter #: [id number] Ordering Provider: SILVIA REDDY Report Released Date/Time: Aug 20, 2024 06:05 AM Reporting Lab: [facility] [facility] [address] Performing Lab: [facility] [facility] [address] GLUCOSE,BLOOD- poct (STL) 115 mg/dL H Aug 19, 2024 04:23 PM [facility] GLUCOSE,BLOOD-poct (STL) Specimen Type: BLOOD Comment: Test Performed by: [id number] Meter #: [id number] Ordering Provider: SILVIA REDDY Report Released Date/Time: Aug 19, 2024 05:54 PM Reporting Lab: [facility] [facility] [address] Performing Lab: [facility] [facility] [address] GLUCOSE,BLOOD- poct (STL) 137 mg/dL H Aug 19, 2024 11:28 AM [facility] GLUCOSE,BLOOD-poct (STL) Specimen Type: BLOOD Comment: Test Performed by: [id number] Meter #: [id number] Ordering Provider: SILVIA REDDY Report Released Date/Time: Aug 19, 2024 11:51 AM Reporting Lab: [facility] [address] Performing Lab: [facility] [address] GLUCOSE,BLOOD- poct (STL) 190 mg/dL H -Aug 19, 2024 05:21 AM [facility] GLUCOSE,BLOOD-poct (STL) Specimen Type: BLOOD Comment: Test Performed by: [id number] Meter #: [id number] Ordering Provider: SILVIA REDDY Report Released Date/Time: Aug 19, 2024 05:56 AM Reporting Lab: [facility] [facility] [address] Performing Lab: [facility] [address] GLUCOSE,BLOOD- poct (STL) 130 mg/dL H Aug 18, 2024 04:49 PM [facility] GLUCOSE,BLOOD-poct (STL) Specimen Type: BLOOD Comment: Test Performed by: [id number] Meter #: [id number] Ordering Provider: SILVIA REDDY Report Released Date/Time: Aug 18, 2024 05:01 PM Reporting Lab: [facility] [address] Performing Lab: [facility] [address] GLUCOSE,BLOOD- poct (STL) 129 mg/dL H Aug 18, 2024 11:23 AM [facility] GLUCOSE,BLOOD-poct (STL) Specimen Type: BLOOD Comment: Test Performed by: [id number] Meter #: [id number] Ordering Provider: SILVIA REDDY Report Released Date/Time: Aug 18, 2024 11:41 AM Reporting Lab: [facility] [facility] [address] Performing Lab: [facility] [facility] [address] GLUCOSE,BLOOD- poct (STL) 180 mg/dL H Aug 18, 2024 05:08 AM [facility] GLUCOSE,BLOOD-poct (STL) Specimen Type: BLOOD Comment: Test Performed by: [id number] Meter #: [id number] Ordering Provider: SILVIA REDDY Report Released Date/Time: Aug 18, 2024 05:31 AM Reporting Lab: [facility] [facility] [address] Performing Lab: [facility] [facility] [address] GLUCOSE,BLOOD- poct (STL) 127 mg/dL H 72-Aug 17, 2024 07:32 PM [facility] GLUCOSE,BLOOD-poct (STL) Specimen Type: BLOOD Comment: Test Performed by: [id number] Meter #: [id number] Ordering Provider: SILVIA REDDY Report Released Date/Time: Aug 17, 2024 07:59 PM Reporting Lab: [facility] [facility] [address] Performing Lab: [facility] [place] [address] GLUCOSE,BLOOD- poct (STL) 154 mg/dL H -Aug 17, 2024 04:24 PM [facility] GLUCOSE,BLOOD-poct (STL) Specimen Type: BLOOD Comment: Test Performed by: [id number] Meter #: [id number] Ordering Provider: SILVIA REDDY Report Released Date/Time: Aug 17, 2024 04:35 PM Reporting Lab: [facility] [facility] [address] Performing Lab: [facility] [address] GLUCOSE,BLOOD- poct (STL) 178 mg/dL H 72-Aug 17, 2024 05:09 AM [facility] GLUCOSE,BLOOD-poct (STL) Specimen Type: BLOOD Comment: Test Performed by: [id number] Meter #: [id number] Ordering Provider: SILVIA REDDY Report Released Date/Time: Aug 17, 2024 05:54 AM Reporting Lab: [facility] [place] [address] Performing Lab: [facility] [address] GLUCOSE,BLOOD- poct (STL) 124 mg/dL H Aug 16, 2024 07:40 PM [facility] GLUCOSE,BLOOD-poct (STL) Specimen Type: BLOOD Comment: Test Performed by: [id number] Meter #: [id number] Ordering Provider: SILVIA REDDY Report Released Date/Time: Aug 16, 2024 08:28 PM Reporting Lab: [facility] [address] Performing Lab: [facility] [address] GLUCOSE,BLOOD- poct (STL) 144 mg/dL H Aug 16, 2024 04:19 PM [facility] GLUCOSE,BLOOD-poct (STL) Specimen Type: BLOOD Comment: Test Performed by: [id number] Meter #: [id number] Ordering Provider: SILVIA REDDY Report Released Date/Time: Aug 16, 2024 04:45 PM Reporting Lab: [facility] [address] Performing Lab: [facility] [address] GLUCOSE,BLOOD- poct (STL) 138 mg/dL H Aug 16, 2024 11:52 AM [facility] GLUCOSE,BLOOD-poct (STL) Specimen Type: BLOOD Comment: Test Performed by: [id number] Meter #: [id number] Ordering Provider: SILVIA REDDY Report Released Date/Time: Aug 16, 2024 12:04 PM Reporting Lab: [facility] [address] Performing Lab: [facility] [address] GLUCOSE,BLOOD- poct (STL) 135 mg/dL H Aug 16, 2024 05:24 AM [facility] GLUCOSE,BLOOD-poct (STL) Specimen Type: BLOOD Comment: Test Performed by: [id number] Meter #: [id number] Ordering Provider: SILVIA REDDY Report Released Date/Time: Aug 16, 2024 05:38 AM Reporting Lab: [facility] [address] Performing Lab: [facility] [address] GLUCOSE,BLOOD- poct (STL) 151 mg/dL H Aug 15, 2024 07:31 PM [facility] GLUCOSE,BLOOD-poct (STL) Specimen Type: BLOOD Comment: Test Performed by: [id number] Meter #: [id number] Ordering Provider: SILVIA REDDY Report Released Date/Time: Aug 15, 2024 08:07 PM Reporting Lab: [facility] [address] Performing Lab: [facility] [address] GLUCOSE,BLOOD- poct (STL) 173 mg/dL H Aug 15, 2024 04:18 PM [facility] GLUCOSE,BLOOD-poct (STL) Specimen Type: BLOOD Comment: Test Performed by: [id number] Meter #: [id number] Ordering Provider: SILVIA REDDY Report Released Date/Time: Aug 15, 2024 04:59 PM Reporting Lab: [facility] [address] Performing Lab: [facility] [address] GLUCOSE,BLOOD- poct (STL) 136 mg/dL H Aug 15, 2024 04:16 PM [facility] GLUCOSE,BLOOD-poct (STL) Specimen Type: BLOOD Comment: Test Performed by: [id number] Meter #: [id number] Ordering Provider: SILVIA REDDY Report Released Date/Time: Aug 15, 2024 04:59 PM Reporting Lab: [facility] [address] Performing Lab: [facility] [address] GLUCOSE,BLOOD- poct (STL) 194 mg/dL H 72-Aug 15, 2024 11:39 AM [facility] GLUCOSE,BLOOD-poct (STL) Specimen Type: BLOOD Comment: Test Performed by: [id number] Meter #: [id number] Ordering Provider: SILVIA REDDY Report Released Date/Time: Aug 15, 2024 12:00 PM Reporting Lab: [facility] [address] Performing Lab: [facility] [address] GLUCOSE,BLOOD- poct (STL) 127 mg/dL H -Aug 15, 2024 05:07 AM [facility] GLUCOSE,BLOOD-poct (STL) Specimen Type: BLOOD Comment: Test Performed by: [id number] Meter #: [id number] Ordering Provider: SILVIA REDDY Report Released Date/Time: Aug 15, 2024 06:14 AM Reporting Lab: [facility] [address] Performing Lab: [facility] [address] GLUCOSE,BLOOD- poct (STL) 151 mg/dL H 72-99 Aug 14, 2024 04:22 PM [facility] GLUCOSE,BLOOD-poct (STL) Specimen Type: BLOOD Comment: Test Performed by: [id number] Meter #: [id number] Ordering Provider: SILVIA REDDY Report Released Date/Time: Aug 14, 2024 04:52 PM Reporting Lab: [facility] [place] [address] Performing Lab: [facility] [address] GLUCOSE,BLOOD- poct (STL) 129 mg/dL H 72-99 Aug 14, 2024 11:21 AM [facility] GLUCOSE,BLOOD-poct (STL) Specimen Type: BLOOD Comment: Test Performed by: [id number] Meter #: [id number] Ordering Provider: SILVIA REDDY Report Released Date/Time: Aug 14, 2024 11:37 AM Reporting Lab: [facility] [address] Performing Lab: [facility] [address] GLUCOSE,BLOOD- poct (STL) 135 mg/dL H 72-Aug 14, 2024 06:59 AM [facility] QUANTIFERON-TB,4 TUBE Specimen Type: BLOOD Comment: [...] For additional information, please refer to http://[email or web address] Evian. Jotvine.com/faq/GUJ052 (This link is being provided for information/ educational purposes only.) Test Performed by theDrop Sander, [employer] [facility], [address] [place] [id number] Tommie Garcia M.D., Ph.D., Director of Laboratories , [facility] [id number] Ordering Provider: SILVIA REDDY Report Released Date/Time: Aug 11, 2024 03:58 PM Reporting Lab: [facility] [address] [facility] [address] Performing Lab: [facility] [id number] [place] [address] .NIL - QUANTIFERON 0.04 [IU]/mL .MITOGEN-NIL 0.39 [IU]/mL .QUANTIFERON INDETERMINATE NEGATIVE .TB1-NIL <0.00 [IU]/mL .TB2-NIL <0.00 [IU]/mL Aug 14, 2024 06:59 AM [facility] MAGNESIUM Specimen Type: PLASMA Comment: No hemolysis noted. Ordering Provider: SILVIA REDDY Report Released Date/Time: Aug 11, 2024 03:58 PM Reporting Lab: [facility] [address] Performing Lab: [facility] [address] MAGNESIUM 1.9 mg/dL 1.6-2.6 Aug 14, 2024 06:59 AM [facility] B12 Specimen Type: SERUM No comment entered. Ordering Provider: SILVIA REDDY Report Released Date/Time: Aug 11, 2024 03:58 PM Reporting Lab: [facility] [address] Performing Lab: [facility] [address] B12 757 pg/mL 213-816 Aug 14, 2024 06:59 AM [facility] FOLATE ([facility]-MA) Specimen Type: SERUM No comment entered. Ordering Provider: SILVIA REDDY Report Released Date/Time: Aug 11, 2024 03:58 PM Reporting Lab: [facility] [id number] Performing Lab: [facility] [id number] FOLATE (ST[facility]-[place]) 6.8 ng/mL L 7-20 Aug 14, 2024 06:59 AM [facility] VITAMIN D, 25-HYDROXY Specimen Type: SERUM No comment entered. Ordering Provider: SILVIA REDDY Report Released Date/Time: Aug 11, 2024 03:58 PM Reporting Lab: [facility] [place] [phone] Performing Lab: [facility] [address] VITAMIN D, 25-HYDROXY 8.9 ng/mL L 30-96 Aug 14, 2024 06:59 AM [facility] COMPREHENSIVE METABOLIC PANEL Specimen Type: PLASMA Comment: No hemolysis noted. Ordering Provider: SILVIA REDDY Report Released Date/Time: Aug 11, 2024 03:58 PM Reporting Lab: [facility] [phone] Performing Lab: [facility] [address] CREATININE 0.75 mg/dL 0.70-1.30 UREA NITROGEN 13.6 [...] 95.88 >60 Aug 14, 2024 06:59 AM [facility] CBC Specimen Type: BLOOD No comment entered. Ordering Provider: SILVIA REDDY Report Released Date/Time: Aug 11, 2024 03:58 PM Reporting Lab: [facility] [phone] Performing Lab: [facility] [phone] WBC 4.1 10*3/uL 3.6-11.2 RBC 3.20 10*6/uL [...] 10*3/uL 0.00-0.20 Aug 14, 2024 05:08 AM [facility] GLUCOSE,BLOOD-poct (STL) Specimen Type: BLOOD Comment: Test Performed by: [id number] Meter #: [id number] Ordering Provider: SILVIA REDDY Report Released Date/Time: Aug 14, 2024 05:52 AM Reporting Lab: [facility] [address] Performing Lab: [facility] [address] GLUCOSE,BLOOD- poct (STL) 135 mg/dL H 72-99 Aug 13, 2024 04:27 PM [facility] GLUCOSE,BLOOD-poct (STL) Specimen Type: BLOOD Comment: Test Performed by: [id number] Meter #: [id number] Ordering Provider: SILVIA REDDY Report Released Date/Time: Aug 13, 2024 04:41 PM Reporting Lab: [facility] [address] Performing Lab: [facility] [address] GLUCOSE,BLOOD- poct (STL) 181 mg/dL H 72-Aug 13, 2024 11:33 AM [facility] GLUCOSE,BLOOD-poct (STL) Specimen Type: BLOOD Comment: Test Performed by: [id number] Meter #: [id number] Ordering Provider: SILVIA REDDY Report Released Date/Time: Aug 13, 2024 03:55 PM Reporting Lab: [facility] [address] Performing Lab: [facility] [place] [address] GLUCOSE,BLOOD- poct (STL) 140 mg/dL H -Aug 13, 2024 05:54 AM [facility] GLUCOSE,BLOOD-poct (STL) Specimen Type: BLOOD Comment: Test Performed by: [id number] Meter #: [id number] Ordering Provider: SILVIA REDDY Report Released Date/Time: Aug 13, 2024 06:20 AM Reporting Lab: [facility] [place] [phone] Performing Lab: [facility] [address] GLUCOSE,BLOOD- poct (STL) 112 mg/dL H -Aug 12, 2024 04:35 PM [facility] GLUCOSE,BLOOD-poct (STL) Specimen Type: BLOOD Comment: Test Performed by: [id number] Meter #: [id number] Ordering Provider: SILVIA REDDY Report Released Date/Time: Aug 12, 2024 04:47 PM Reporting Lab: [facility] [address] Performing Lab: [facility] [address] GLUCOSE,BLOOD- poct (STL) 128 mg/dL H 72-99 Aug 12, 2024 11:26 AM [facility] GLUCOSE,BLOOD-poct (STL) Specimen Type: BLOOD Comment: Test Performed by: [id number] Meter #: [id number] Ordering Provider: SILVIA REDDY Report Released Date/Time: Aug 12, 2024 11:45 AM Reporting Lab: [facility] [address] Performing Lab: [facility] [place] [phone] GLUCOSE,BLOOD- poct (STL) 188 mg/dL H -Aug 12, 2024 06:13 AM [facility] GLUCOSE,BLOOD-poct (STL) Specimen Type: BLOOD Comment: Test Performed by: [id number] Meter #: [id number] Ordering Provider: SILVIA REDDY Report Released Date/Time: Aug 12, 2024 06:25 AM Reporting Lab: [facility] [address] Performing Lab: [facility] [address] GLUCOSE,BLOOD- poct (STL) 116 mg/dL H 72-99 Aug 11, 2024 04:10 PM [facility] GLUCOSE,BLOOD-poct (STL) Specimen Type: BLOOD Comment: Test Performed by: [id number] Meter #: [id number] Ordering Provider: SILVIA REDDY Report Released Date/Time: Aug 11, 2024 04:27 PM Reporting Lab: [facility] [place] [address] Performing Lab: [facility] [place] [phone] GLUCOSE,BLOOD- poct (STL) 184 mg/dL H 72-99 Aug 11, 2024 01:44 PM [facility] MRSA SURVL NARES DNA [...] 11, 2024 02:03 PM Reporting Lab: [address] [address] Performing Lab: [address] [address] MRSA SURVL NARES DNA Negative Negative Jul 20, 2024 11:18 AM [facility] APTT Specimen Type: PLASMA No comment entered. Ordering Provider: MANUEL BAIRD Report Released Date/Time: Jul 19, 2024 04:00 PM Reporting Lab: [facility] [address] [place] [phone] Performing Lab: [address] [address] APTT 32.1 s 26.7-39.9 Jul 20, 2024 11:18 AM [facility] PT/INR NEW ([facility]) Specimen Type: PLASMA No comment entered. Ordering Provider: MANUEL BAIRD Report Released Date/Time: Jul 19, 2024 04:00 PM Reporting Lab: [address] [address] Performing Lab: [address] [address] PROTIME 14.4 s H 9.4-12.5 INR VALUE 1.3 {INR} Jul 20, 2024 11:18 AM [facility] CBC Specimen Type: BLOOD No comment entered. Ordering Provider: MANUEL BAIRD Report Released Date/Time: Jul 19, 2024 04:00 PM Reporting Lab: [facility] [address] [facility] [address] Performing Lab: [address] [address] WBC 4.7 10*3/uL 3.6-11.2 RBC 4.86 10*6/uL [...] 1.6 1.0-7.0 Jul 17, 2024 08:02 AM [facility] BASIC METABOLIC PANEL Specimen Type: PLASMA Comment: No hemolysis noted. Ordering Provider: MARY SERNA Report Released Date/Time: Jun 07, 2024 01:43 PM Reporting Lab: [facility] [address] [place] [phone] Performing Lab: [address] [address] CREATININE 0.85 mg/dL 0.7-1.3 UREA NITROGEN 15.2 [...] and tobacco- related health factors from the [place] facility where the Encounter took place. Current Smoking Status This section includes the most current smoking, or tobacco-related health factor, from the [place] facility where the Encounter took place. Date/Time Current Smoking Status Comment Facil ity Aug 11, 2016 10:34 AM QUIT TOBACCO >7 YEARS AGO [facility] Tobacco Use History This section includes a history of the smoking, or tobacco-related health factors, that were collected on or before the date of the Encounter. The data comes from the [place] facility where the Encounter took place. Date/Time Smoking Status/Tobacco Use Comment F acility Sep 30, 2015 10:12 AM QUIT TOBACCO >7 YEARS AGO [facility] Oct 29, 2014 10:23 AM QUIT TOBACCO >7 YEARS AGO [facility] Dec 27, 2013 01:27 PM QUIT TOBACCO >7 YEARS AGO [facility] Feb 24, 2013 02:01 PM LIFETIME NON-USER OF TOBACCO [facility] Feb 11, 2009 10:09 AM QUIT TOBACCO >7 YEARS AGO [facility] Oct 06, 2006 09:30 AM CURRENT NON-TOBACC O USER-HX OF USE [facility] Oct 06, 2006 09:30 AM TOBACCO TERMINATION STAGE [facility] Advance Directives: All historical and current Section Date Range: From patient's date of to the date document was created. This section includes ALL of a patient's completed or amended [place] Advance and Rescinded Directives. The entries below indicate that a directive exists for the patient, but an actual copy is not included with this document. The data comes from all [place] facilities. Date Advance Directives Provider Source Jan 19, 2017 ADVANCE DIRECTIVE DISCUSSION ERICK BARDALES [facility]
--- OUTSIDE RECORDS SUMMARY | 2024-11-17 04:06 | XMS_ITS ---
OR DAILY HOSPITALIZATION DATA [facility] Encounter Summary Created on: November 16, 2024 CHET WALKER : 1950 Sex: Male Author Name [facility] Organization [facility]) Address [address] [place] [address] Care Team Providers Care Estimator Binding Name Role Phone MANUEL BAIRD Primary Care [...] PART A Apr 08, 2017 PART A [id number] ASHLEY WALKER PATIENT Selected Encounter This section includes the information on record at OR for the Encounter. Date/Time Encounter Type Encounter Description Reason Pro vider Source Aug 15, 2024 09:37 AM Inpatient Visit DAILY HOSPITALIZATION DATA MAY TO IN E Encounter Template Text not used by VA [...] 20 appointments. The data comes from all [facility]. Appointment Date/Time Appointment Type Appointme nt Facility Name Aug 24, 2024 10:00 AM AM[facility]ULATORY - [facility] Aug 24, 2024 10:30 AM [facility]BULATORY - [facility] Aug 30, 2024 09:30 AM [facility]ATORY - [facility] Aug 31, 2024 01:00 PM AMBULATORY - SURGERY [facility] Sep 21, 2024 01:30 PM AMBULATORY - MEDICINE [facility] Sep 22, 2024 11:00 AM AMBULATORY - MEDICINE [facility] Sep 29, 2024 12:30 PM AMBULATORY - MEDICINE [facility] Oct 02, 2024 09:30 AM AMBULATORY - MEDICINE [facility] Nov 20, 2024 10:30 AM AMBULATORY - SURGERY [facility] Nov 21, 2024 10:00 AM AMBULATORY - NONE [facility] Dec 11, 2024 10:30 [...] of theEncounter. The data comes from all [facility]. Test Date/Time Test Type Test Details Facility Name Aug 02, 2024 12:00 AM Laboratory - Chemistry Order CBC BLOOD STAT SP [facility] Aug 02, 2024 12:00 AM Laboratory - Chemistry Order COMPREHENSIVE METABOLIC PANEL GREEN LI/HEP BLD/PLAS PLASMA SP [facility] Aug 17, 2024 03:47 PM Consult Order [facility] Cons Bedside [facility] Lab Results: [...] Range Comment Aug 23, 2024 08:21 AM [facility] MAGNESIUM Specimen Type: PLASMA No comment entered. Ordering Provider: SILVIA REDDY Report Released Date/Time: Aug 22, 2024 11:26 AM Reporting Lab: [facility] [address] [address] Performing Lab: [facility] [address] [address] MAGNESIUM 1.8 mg/dL 1.6-2.6 Aug 23, 2024 08:21 AM [facility] CBC Specimen Type: BLOOD No comment entered. Ordering Provider: SILVIA REDDY Report Released Date/Time: Aug 22, 2024 11:19 AM Reporting Lab: [facility] [address] [address] Performing Lab: [facility] [address] [address] WBC 4.0 10*3/uL 3.6-11.2 RBC 3.65 10*6/uL [...] 10*3/uL 0.00-0.20 Aug 23, 2024 05:12 AM [facility] GLUCOSE,BLOOD-poct (STL) Specimen Type: BLOOD Comment: Test Performed by: [id number] Meter #: [id number] Ordering Provider: SILVIA REDDY Report Released Date/Time: Aug 23, 2024 05:23 AM Reporting Lab: [facility] [address] [address] Performing Lab: [facility] [address] [address] GLUCOSE,BLOOD- poct (STL) 99 mg/dL 72-99 Aug 23, 2024 02:45 AM [facility] OCCULT BLOOD FIT X1 SCREEN Specimen Type: FECES No comment entered. Ordering Provider: SILVIA REDDY Report Released Date/Time: Aug 22, 2024 11:23 AM Reporting Lab: [address] [address] Performing Lab: [address] [address] OCCULT BLOOD (FIT) #1 OF 1 Negative Negative Aug 22, 2024 07:30 PM [facility] OCCULT BLOOD FIT X1 SCREEN Specimen Type: FECES No comment entered. Ordering Provider: SILVIA REDDY Report Released Date/Time: Aug 22, 2024 11:23 AM Reporting Lab: [address] [address] Performing Lab: [address] [address] OCCULT BLOOD (FIT) #1 OF 1 Negative Negative Aug 22, 2024 06:15 PM [facility] OCCULT BLOOD FIT X1 SCREEN Specimen Type: FECES No comment entered. Ordering Provider: SILVIA REDDY Report Released Date/Time: Aug 22, 2024 11:23 AM Reporting Lab: [address] [address] Performing Lab: [facility] [address] [facility] [address] OCCULT BLOOD (FIT) #1 OF 1 Negative Negative Aug 22, 2024 04:24 PM [facility] GLUCOSE,BLOOD-poct (STL) Specimen Type: BLOOD Comment: Test Performed by: [id number] Meter #: [id number] Ordering Provider: SILVIA REDDY Report Released Date/Time: Aug 22, 2024 04:36 PM Reporting Lab: [facility] [address] [address] Performing Lab: [facility] [address] [address] GLUCOSE,BLOOD- poct (STL) 176 mg/dL H -Aug 22, 2024 04:23 PM [facility] GLUCOSE,BLOOD-poct (STL) Specimen Type: BLOOD Comment: Test Performed by: [id number] Meter #: [id number] Ordering Provider: SILVIA REDDY Report Released Date/Time: Aug 22, 2024 04:36 PM Reporting Lab: [facility] [address] [address] Performing Lab: [facility] [address] [address] GLUCOSE,BLOOD- poct (STL) 221 mg/dL H 72-Aug 22, 2024 11:15 AM [facility] GLUCOSE,BLOOD-poct (STL) Specimen Type: BLOOD Comment: Test Performed by: [id number] Meter #: [id number] Ordering Provider: SILVIA REDDY Report Released Date/Time: Aug 22, 2024 11:27 AM Reporting Lab: [facility] [address] Performing Lab: [facility] [address] GLUCOSE,BLOOD- poct (STL) 140 mg/dL H 72-99 Aug 22, 2024 08:03 AM [facility] FERRITIN Specimen Type: SERUM No comment entered. Ordering Provider: JUDIT PERKINS Report Released Date/Time: Aug 18, 2024 11:01 AM Reporting Lab: [facility] [address] [facility] [address] Performing Lab: [facility] [address] [facility] [address] FERRITIN 79.50 ng/mL 22-275 Aug 22, 2024 08:03 AM [facility] CBC Specimen Type: BLOOD No comment entered. Ordering Provider: SILVIA REDDY Report Released Date/Time: Aug 17, 2024 01:18 PM Reporting Lab: [facility] [address] Performing Lab: [facility] [address] [address] WBC 3.5 10*3/uL L 3.6-11.2 RBC 3.23 [...] NRBC% 0 Aug 22, 2024 08:03 AM [facility] COMPREHENSIVE METABOLIC PANEL Specimen Type: PLASMA Comment: No hemolysis noted. Ordering Provider: SILVIA REDDY Report Released Date/Time: Aug 17, 2024 01:18 PM Reporting Lab: [facility] [address] [place] [address] Performing Lab: [address] [address] CREATININE 0.80 mg/dL 0.7-1.3 UREA NITROGEN 9.7 [...] 94.0 >60 Aug 22, 2024 08:03 AM [facility] IRON/TIBC PROFILE Specimen Type: SERUM No comment entered. Ordering Provider: JUDIT PERKINS Report Released Date/Time: Aug 18, 2024 11:01 AM Reporting Lab: [facility] [address] [facility] [address] Performing Lab: [address] [address] TIBC 283 ug/dL 250-450 TRANSFERRIN 226 mg/dL 163-344 IRON SATURATION 7 L 20-50 IRON 19 ug/dL L 65-175 Aug 22, 2024 08:03 AM [facility] B12 Specimen Type: SERUM No comment entered. Ordering Provider: JUDIT PERKINS Report Released Date/Time: Aug 18, 2024 11:01 AM Reporting Lab: [facility] [address] [address] Performing Lab: [facility] [address] [address] B12 631 pg/mL 213-816 Aug 22, 2024 05:03 AM [facility] GLUCOSE,BLOOD-poct (STL) Specimen Type: BLOOD Comment: Test Performed by: [id number] Meter #: [id number] Ordering Provider: SILVIA REDDY Report Released Date/Time: Aug 22, 2024 06:17 AM Reporting Lab: [facility] [address] [address] Performing Lab: [facility]1 [facility] [address] [address] GLUCOSE,BLOOD- poct (STL) 170 mg/dL H 72-Aug 21, 2024 04:32 PM [facility] GLUCOSE,BLOOD-poct (STL) Specimen Type: BLOOD Comment: Test Performed by: [id number] Meter #: [id number] Ordering Provider: SILVIA REDDY Report Released Date/Time: Aug 21, 2024 04:49 PM Reporting Lab: [facility] [address] [address] Performing Lab: [facility] [address] [address] GLUCOSE,BLOOD- poct (STL) 169 mg/dL H 72-99 Aug 21, 2024 11:53 AM [facility] GLUCOSE,BLOOD-poct (STL) Specimen Type: BLOOD Comment: Test Performed by: [id number] Meter #: [id number] Ordering Provider: SILVIA REDDY Report Released Date/Time: Aug 21, 2024 12:11 PM Reporting Lab: [facility] [address] Performing Lab: [facility] [address] [address] GLUCOSE,BLOOD- poct (STL) 149 mg/dL H 72-99 Aug 21, 2024 05:10 AM [facility] GLUCOSE,BLOOD-poct (STL) Specimen Type: BLOOD Comment: Test Performed by: [id number] Meter #: [id number] Ordering Provider: SILVIA REDDY Report Released Date/Time: Aug 21, 2024 05:27 AM Reporting Lab: [facility] [place] [address] Performing Lab: [facility] [place] [address] GLUCOSE,BLOOD- poct (STL) 118 mg/dL H 72-99 Aug 20, 2024 04:38 PM [facility] GLUCOSE,BLOOD-poct (STL) Specimen Type: BLOOD Comment: Test Performed by: [id number] Meter #: [id number] Ordering Provider: SILVIA REDDY Report Released Date/Time: Aug 21, 2024 01:55 AM Reporting Lab: [facility] [place] [address] Performing Lab: [facility] [place] [address] GLUCOSE,BLOOD- poct (STL) 169 mg/dL H 72-99 Aug 20, 2024 04:36 PM [facility] GLUCOSE,BLOOD-poct (STL) Specimen Type: BLOOD Comment: Test Performed by: [id number] Meter #: [id number] Ordering Provider: SILVIA REDDY Report Released Date/Time: Aug 21, 2024 01:55 AM Reporting Lab: [facility] [place] [address] Performing Lab: [facility] [place] [address] GLUCOSE,BLOOD- poct (STL) 395 mg/dL H 72-99 Aug 20, 2024 11:45 AM [facility] GLUCOSE,BLOOD-poct (STL) Specimen Type: BLOOD Comment: Test Performed by: [id number] Meter #: [id number] Ordering Provider: SILVIA REDDY Report Released Date/Time: Aug 20, 2024 11:56 AM Reporting Lab: [facility] [address] [address] Performing Lab: [facility] [address] [address] GLUCOSE,BLOOD- poct (STL) 169 mg/dL H 72-Aug 20, 2024 05:06 AM [facility] GLUCOSE,BLOOD-poct (STL) Specimen Type: BLOOD Comment: Test Performed by: [id number] Meter #: [id number] Ordering Provider: SILVIA REDDY Report Released Date/Time: Aug 20, 2024 06:05 AM Reporting Lab: [facility] [address] [address] Performing Lab: [facility] [address] [address] GLUCOSE,BLOOD- poct (STL) 115 mg/dL H -Aug 19, 2024 04:23 PM [facility] GLUCOSE,BLOOD-poct (STL) Specimen Type: BLOOD Comment: Test Performed by: [id number] Meter #: [id number] Ordering Provider: SILVIA REDDY Report Released Date/Time: Aug 19, 2024 05:54 PM Reporting Lab: [facility] [address] [address] Performing Lab: [facility] [address] [address] GLUCOSE,BLOOD- poct (STL) 137 mg/dL H 72-Aug 19, 2024 11:28 AM [facility] GLUCOSE,BLOOD-poct (STL) Specimen Type: BLOOD Comment: Test Performed by: [id number] Meter #: [id number] Ordering Provider: SILVIA REDDY Report Released Date/Time: Aug 19, 2024 11:51 AM Reporting Lab: [facility] [address] [address] Performing Lab: [facility] [address] [address] GLUCOSE,BLOOD- poct (STL) 190 mg/dL H Aug 19, 2024 05:21 AM [facility] GLUCOSE,BLOOD-poct (STL) Specimen Type: BLOOD Comment: Test Performed by: [id number] Meter #: [id number] Ordering Provider: SILIVA REDDY Report Released Date/Time: Aug 19, 2024 05:56 AM Reporting Lab: [facility] [address] [address] Performing Lab: [facility] [address] [address] GLUCOSE,BLOOD- poct (STL) 130 mg/dL H Aug 18, 2024 04:49 PM [facility] GLUCOSE,BLOOD-poct (STL) Specimen Type: BLOOD Comment: Test Performed by: [id number] Meter #: [id number] Ordering Provider: SILVIA REDDY Report Released Date/Time: Aug 18, 2024 05:01 PM Reporting Lab: [facility] [address] [address] Performing Lab: [facility] [address] [address] GLUCOSE,BLOOD- poct (STL) 129 mg/dL H Aug 18, 2024 11:23 AM [facility] GLUCOSE,BLOOD-poct (STL) Specimen Type: BLOOD Comment: Test Performed by: [id number] Meter #: [id number] Ordering Provider: SILVIA REDDY Report Released Date/Time: Aug 18, 2024 11:41 AM Reporting Lab: [facility] [address] [address] Performing Lab: [facility] [address] [address] GLUCOSE,BLOOD- poct (STL) 180 mg/dL H Aug 18, 2024 05:08 AM [facility] GLUCOSE,BLOOD-poct (STL) Specimen Type: BLOOD Comment: Test Performed by: [id number] Meter #: [id number] Ordering Provider: SILVIA REDDY Report Released Date/Time: Aug 18, 2024 05:31 AM Reporting Lab: [facility] [address] [address] Performing Lab: [facility] [address] [address] GLUCOSE,BLOOD- poct (STL) 127 mg/dL H 72-Aug 17, 2024 07:32 PM [facility] GLUCOSE,BLOOD-poct (STL) Specimen Type: BLOOD Comment: Test Performed by: [id number] Meter #: [id number] Ordering Provider: SILVIA REDDY Report Released Date/Time: Aug 17, 2024 07:59 PM Reporting Lab: [facility] [address] [address] Performing Lab: [facility] [place] [address] GLUCOSE,BLOOD- poct (STL) 154 mg/dL H -Aug 17, 2024 04:24 PM [facility] GLUCOSE,BLOOD-poct (STL) Specimen Type: BLOOD Comment: Test Performed by: [id number] Meter #: [id number] Ordering Provider: SILVIA REDDY Report Released Date/Time: Aug 17, 2024 04:35 PM Reporting Lab: [facility] [address] [address] Performing Lab: [facility] [place] [address] GLUCOSE,BLOOD- poct (STL) 178 mg/dL H 72-Aug 17, 2024 05:09 AM [facility] GLUCOSE,BLOOD-poct (STL) Specimen Type: BLOOD Comment: Test Performed by: [id number] Meter #: [id number] Ordering Provider: SILVIA REDDY Report Released Date/Time: Aug 17, 2024 05:54 AM Reporting Lab: [facility] [address] [address] Performing Lab: [facility] [address] [address] GLUCOSE,BLOOD- poct (STL) 124 mg/dL H 72-Aug 16, 2024 07:40 PM [facility] GLUCOSE,BLOOD-poct (STL) Specimen Type: BLOOD Comment: Test Performed by: [id number] Meter #: [id number] Ordering Provider: SILVIA REDDY Report Released Date/Time: Aug 16, 2024 08:28 PM Reporting Lab: [facility] [address] [address] Performing Lab: [facility] [address] [address] GLUCOSE,BLOOD- poct (STL) 144 mg/dL H -Aug 16, 2024 04:19 PM [facility] GLUCOSE,BLOOD-poct (STL) Specimen Type: BLOOD Comment: Test Performed by: [id number] Meter #: [id number] Ordering Provider: SILVIA REDDY Report Released Date/Time: Aug 16, 2024 04:45 PM Reporting Lab: [facility] [address] [address] Performing Lab: [facility] [address] [address] GLUCOSE,BLOOD- poct (STL) 138 mg/dL H -Aug 16, 2024 11:52 AM [facility] GLUCOSE,BLOOD-poct (STL) Specimen Type: BLOOD Comment: Test Performed by: [id number] Meter #: [id number] Ordering Provider: SILVIA REDDY Report Released Date/Time: Aug 16, 2024 12:04 PM Reporting Lab: [facility] [address] [address] Performing Lab: [facility] [address] [address] GLUCOSE,BLOOD- poct (STL) 135 mg/dL H Aug 16, 2024 05:24 AM [facility] GLUCOSE,BLOOD-poct (STL) Specimen Type: BLOOD Comment: Test Performed by: [id number] Meter #: [id number] Ordering Provider: SILVIA REDDY Report Released Date/Time: Aug 16, 2024 05:38 AM Reporting Lab: [facility] [address] [address] Performing Lab: [facility] [address] [address] GLUCOSE,BLOOD- poct (STL) 151 mg/dL H Aug 15, 2024 07:31 PM [facility] GLUCOSE,BLOOD-poct (STL) Specimen Type: BLOOD Comment: Test Performed by: [id number] Meter #: [id number] Ordering Provider: SILVIA REDDY Report Released Date/Time: Aug 15, 2024 08:07 PM Reporting Lab: [facility] [address] [address] Performing Lab: [facility] [address] [address] GLUCOSE,BLOOD- poct (STL) 173 mg/dL H Aug 15, 2024 04:18 PM [facility] GLUCOSE,BLOOD-poct (STL) Specimen Type: BLOOD Comment: Test Performed by: [id number] Meter #: [id number] Ordering Provider: SILVIA REDDY Report Released Date/Time: Aug 15, 2024 04:59 PM Reporting Lab: [facility] [address] [address] Performing Lab: [facility] [address] [address] [address] GLUCOSE,BLOOD- poct (STL) 136 mg/dL H Aug 15, 2024 04:16 PM [facility] GLUCOSE,BLOOD-poct (STL) Specimen Type: BLOOD Comment: Test Performed by: [id number] Meter #: [id number] Ordering Provider: SILVIA REDDY Report Released Date/Time: Aug 15, 2024 04:59 PM Reporting Lab: [facility] [address] [address] Performing Lab: [facility] [address] [address] GLUCOSE,BLOOD- poct (STL) 194 mg/dL H 72-Aug 15, 2024 11:39 AM [facility] GLUCOSE,BLOOD-poct (STL) Specimen Type: BLOOD Comment: Test Performed by: [id number] Meter #: [id number] Ordering Provider: SILVIA REDDY Report Released Date/Time: Aug 15, 2024 12:00 PM Reporting Lab: [facility] [place] [address] Performing Lab: [facility] [place] [address] GLUCOSE,BLOOD- poct (STL) 127 mg/dL H 72-Aug 15, 2024 05:07 AM [facility] GLUCOSE,BLOOD-poct (STL) Specimen Type: BLOOD Comment: Test Performed by: [id number] Meter #: [id number] Ordering Provider: SILVIA REDDY Report Released Date/Time: Aug 15, 2024 06:14 AM Reporting Lab: [facility] [place] [address] Performing Lab: [facility] [place] [address] GLUCOSE,BLOOD- poct (STL) 151 mg/dL H 72-99 Aug 14, 2024 04:22 PM [facility] GLUCOSE,BLOOD-poct (STL) Specimen Type: BLOOD Comment: Test Performed by: [id number] Meter #: [id number] Ordering Provider: SILVIA REDDY Report Released Date/Time: Aug 14, 2024 04:52 PM Reporting Lab: [facility] [facility] [address] [address] Performing Lab: [facility] [facility] [address] [address] GLUCOSE,BLOOD- poct (STL) 129 mg/dL H 72-99 Aug 14, 2024 11:21 AM [facility] GLUCOSE,BLOOD-poct (STL) Specimen Type: BLOOD Comment: Test Performed by: [id number] Meter #: [id number] Ordering Provider: SILVIA REDDY Report Released Date/Time: Aug 14, 2024 11:37 AM Reporting Lab: [facility] [facility] [address] [address] Performing Lab: [facility] [facility] [address] [address] GLUCOSE,BLOOD- poct (STL) 135 mg/dL H 72-Aug 14, 2024 06:59 AM [facility] QUANTIFERON-TB,4 TUBE Specimen Type: BLOOD Comment: [...] For additional information, please refer to http://education. PillGuard. Abakus/faq/NXV202 (This link is being provided for information/ educational purposes only.) Test Performed by [facility], [facility], [address] [place] [address] Tommie Garcia M.D., Ph.D., Director of Laboratories , [facility] [id number] Ordering Provider: SILVIA REDDY Report Released Date/Time: Aug 11, 2024 03:58 PM Reporting Lab: [facility] [address] [facility] [address] Performing Lab: [facility] [id number] [place] [address] .NIL - QUANTIFERON 0.04 [IU]/mL .MITOGEN-NIL 0.39 [IU]/mL .QUANTIFERON INDETERMINATE NEGATIVE .TB1-NIL <0.00 [IU]/mL .TB2-NIL <0.00 [IU]/mL Aug 14, 2024 06:59 AM [facility] MAGNESIUM Specimen Type: PLASMA Comment: No hemolysis noted. Ordering Provider: SILVIA REDDY Report Released Date/Time: Aug 11, 2024 03:58 PM Reporting Lab: [facility]1 [facility] [address] [address] Performing Lab: [facility]1 [facility] [address] [address] MAGNESIUM 1.9 mg/dL 1.6-2.6 Aug 14, 2024 06:59 AM [facility] B12 Specimen Type: SERUM No comment entered. Ordering Provider: SILVIA REDDY Report Released Date/Time: Aug 11, 2024 03:58 PM Reporting Lab: [facility]1 [facility] [address] [address] Performing Lab: [facility]1 [facility] [address] [address] B12 757 pg/mL 213-816 Aug 14, 2024 06:59 AM [facility] COMPREHENSIVE METABOLIC PANEL Specimen Type: PLASMA Comment: No hemolysis noted. Ordering Provider: SILVIA REDDY Report Released Date/Time: Aug 11, 2024 03:58 PM Reporting Lab: [facility]1 [facility] [address] [address] Performing Lab: [facility]1 [facility] [address] [address] CREATININE 0.75 mg/dL 0.70-1.30 UREA NITROGEN 13.6 [...] 95.88 >60 Aug 14, 2024 06:59 AM [facility] CBC Specimen Type: BLOOD No comment entered. Ordering Provider: SILVIA REDDY Report Released Date/Time: Aug 11, 2024 03:58 PM Reporting Lab: [facility]1 [facility] [address] [address] Performing Lab: [facility]1 [facility] [address] [address] WBC 4.1 10*3/uL 3.6-11.2 RBC 3.20 10*6/uL [...] 10*3/uL 0.00-0.20 Aug 14, 2024 06:59 AM [facility] FOLATE ([email or web address] Specimen Type: SERUM No comment entered. Ordering Provider: SILVIA REDDY Report Released Date/Time: Aug 11, 2024 03:58 PM Reporting Lab: [facility]1 [place] [address] Performing Lab: [facility]1 [place] [address] FOLATE ([facility]) 6.8 ng/mL L 7-20 Aug 14, 2024 06:59 AM [facility] VITAMIN D, 25-HYDROXY Specimen Type: SERUM No comment entered. Ordering Provider: SILVIA REDDY Report Released Date/Time: Aug 11, 2024 03:58 PM Reporting Lab: [facility]1 [place] [address] Performing Lab: [facility] #1 [place] [address] VITAMIN D, 25-HYDROXY 8.9 ng/mL L 30-96 Aug 14, 2024 05:08 AM [facility] GLUCOSE,BLOOD-poct (L) Specimen Type: BLOOD Comment: Test Performed by: [id number] Meter #: [id number] Ordering Provider: SILVIA REDDY Report Released Date/Time: Aug 14, 2024 05:52 AM Reporting Lab: [facility]1 [place] [address] Performing Lab: [facility]1 [place] [address] GLUCOSE,BLOOD- poct (STL) 135 mg/dL H 72-99 Aug 13, 2024 04:27 PM [facility] GLUCOSE,BLOOD-poct (STL) Specimen Type: BLOOD Comment: Test Performed by: [id number] Meter #: [id number] Ordering Provider: SILVIA REDDY Report Released Date/Time: Aug 13, 2024 04:41 PM Reporting Lab: [facility] #1 [facility] [address] [address] Performing Lab: [facility] [address] [address] GLUCOSE,BLOOD- poct (STL) 181 mg/dL H -Aug 13, 2024 11:33 AM [facility] GLUCOSE,BLOOD-poct (STL) Specimen Type: BLOOD Comment: Test Performed by: [id number] Meter #: [id number] Ordering Provider: SILVIA REDDY Report Released Date/Time: Aug 13, 2024 03:55 PM Reporting Lab: [facility] #1 [facility] [address] [address] Performing Lab: [facility] [place] [id number] GLUCOSE,BLOOD- poct (STL) 140 mg/dL H -Aug 13, 2024 05:54 AM [facility] GLUCOSE,BLOOD-poct (STL) Specimen Type: BLOOD Comment: Test Performed by: [id number] Meter #: [id number] Ordering Provider: SILVIA REDDY Report Released Date/Time: Aug 13, 2024 06:20 AM Reporting Lab: [facility]1 [facility] [address] [address] Performing Lab: [facility] #1 [facility] [address] [address] GLUCOSE,BLOOD- poct (STL) 112 mg/dL H -Aug 12, 2024 04:35 PM [facility] GLUCOSE,BLOOD-poct (STL) Specimen Type: BLOOD Comment: Test Performed by: [id number] Meter #: [id number] Ordering Provider: SILVIA REDDY Report Released Date/Time: Aug 12, 2024 04:47 PM Reporting Lab: [facility]1 [facility] [address] [address] Performing Lab: [facility] #1 [facility] [address] [address] GLUCOSE,BLOOD- poct (STL) 128 mg/dL H 72-99 Aug 12, 2024 11:26 AM [facility] GLUCOSE,BLOOD-poct (STL) Specimen Type: BLOOD Comment: Test Performed by: [id number] Meter #: [id number] Ordering Provider: SILVIA REDDY Report Released Date/Time: Aug 12, 2024 11:45 AM Reporting Lab: [facility]1 [facility] [address] [address] Performing Lab: [facility] #1 [place] [address] GLUCOSE,BLOOD- poct (STL) 188 mg/dL H 72-99 Aug 12, 2024 06:13 AM [facility] GLUCOSE,BLOOD-poct (STL) Specimen Type: BLOOD Comment: Test Performed by: [id number] Meter #: [id number] Ordering Provider: SILVIA REDDY Report Released Date/Time: Aug 12, 2024 06:25 AM Reporting Lab: [facility]1 [facility] [address] [address] Performing Lab: [facility]1 [facility] [address] [address] GLUCOSE,BLOOD- poct (STL) 116 mg/dL H 72-99 Aug 11, 2024 04:10 PM [facility] GLUCOSE,BLOOD-poct (STL) Specimen Type: BLOOD Comment: Test Performed by: [id number] Meter #: [id number] Ordering Provider: SILVIA REDDY Report Released Date/Time: Aug 11, 2024 04:27 PM Reporting Lab: [facility] #1 [place] [address] Performing Lab: [facility] [address] GLUCOSE,BLOOD- poct (STL) 184 mg/dL H 72-99 Aug 11, 2024 01:44 PM [facility] MRSA SURVL NARES DNA [...] 11, 2024 02:03 PM Reporting Lab: [address] [address] Performing Lab: [address] [address] MRSA SURVL NARES DNA Negative Negative Jul 20, 2024 11:18 AM [facility] APTT Specimen Type: PLASMA No comment entered. Ordering Provider: MANUEL BAIRD Report Released Date/Time: Jul 19, 2024 04:00 PM Reporting Lab: [address] [address] Performing Lab: [address] [address] APTT 32.1 s 26.7-39.9 Jul 20, 2024 11:18 AM [facility] PT/INR NEW (STL-MA) Specimen Type: PLASMA No comment entered. Ordering Provider: MANUEL BAIRD Report Released Date/Time: Jul 19, 2024 04:00 PM Reporting Lab: [address] [address] Performing Lab: [address] [address] PROTIME 14.4 s H 9.4-12.5 INR VALUE 1.3 {INR} Jul 20, 2024 11:18 AM [facility] CBC Specimen Type: BLOOD No comment entered. Ordering Provider: MANUEL BAIRD Report Released Date/Time: Jul 19, 2024 04:00 PM Reporting Lab: [facility] [address] [facility] [address] Performing Lab: [address] [address] WBC 4.7 10*3/uL 3.6-11.2 RBC 4.86 10*6/uL [...] 2024 01:43 PM Reporting Lab: [facility] [address] [facility] [address] Performing Lab: [address] [address] CREATININE 0.85 mg/dL 0.7-1.3 UREA NITROGEN 15.2 [...] Height Weight Body Mass Index Source Aug 15, 2024 08:08 PM 97.8 68 122/76 18 96 0 [facility] Aug 15, 2024 03:23 PM 97.7 [facility] Aug 15, 2024 12:19 PM 0 [facility] Aug 15, 2024 10:00 AM 97.8 84 120/72 18 95 0 [facility] Aug 15, 2024 05:35 AM 98.1 80 115/67 20 95 [facility] Advance Directives: All historical and [...] ADVANCE DIRECTIVE DISCUSSION ERICK BARDALES [facility]
--- OUTSIDE RECORDS SUMMARY | 2024-11-17 04:06 | XMS_ITS ---
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 Date/Time Encounter Type Encounter Description Reason Pro vider Source Aug 15, 2024 12:17 PM Inpatient Visit DAILY HOSPITALIZATION DATA MARTHA JONES Nav Encounter Template Text not used by [place] Plan of Treatment: Future Appointments (+ 6 [...] 24, 2024 10:00 AM AMBULATORY - MEDICINE [facility] Aug 24, 2024 10:30 AM AMBULATORY - MEDICINE [facility] Aug 30, 2024 09:30 AM AMBULATORY - MEDICINE [facility] Aug 31, 2024 01:00 PM AMBULATORY - SURGERY [facility] Sep 21, 2024 01:30 PM AMBULATORY - MEDICINE [facility] Sep 22, 2024 11:00 AM AMBULATORY - MEDICINE [facility] Sep 29, 2024 12:30 PM AMBULATORY - MEDICINE [facility] Oct 02, 2024 09:30 AM AMBULATORY - MEDICINE [facility] Nov 20, 2024 10:30 AM AMBULATORY - SURGERY . [facility] Nov 21, 2024 10:00 AM AMBULATORY - NONE [facility] Dec 11, 2024 10:30 AM [...] Aug 17, 2024 03:47 PM Consult Order [facility] Cons Bedside [facility] [...] 22, 2024 11:26 AM Reporting Lab: [facility] [address] Performing Lab: [facility] [address] MAGNESIUM 1.8 mg/dL 1.6-2.6 Aug 23, 2024 08:21 AM [facility] CBC Specimen Type: BLOOD No comment entered. Ordering Provider: SILVIA REDDY Report Released Date/Time: Aug 22, 2024 11:19 AM Reporting Lab: [facility] [address] Performing Lab: [facility] [address] WBC 4.0 10*3/uL 3.6-11.2 RBC 3.65 10*6/uL [...] Specimen Type: BLOOD Comment: Test Performed by: [id number] Meter #: [id number] Ordering Provider: SILVIA REDDY Report Released Date/Time: Aug 23, 2024 05:23 AM Reporting Lab: [facility] [address] Performing Lab: [facility] #[facility] [address] GLUCOSE,BLOOD- poct (STL) 99 mg/dL 72-99 Aug 23, 2024 02:45 AM [facility] OCCULT BLOOD FIT X1 SCREEN Specimen Type: FECES No comment entered. Ordering Provider: SILVIA REDDY Report Released Date/Time: Aug 22, 2024 11:23 AM Reporting Lab: [address] [address] Performing Lab: [address] [address] OCCULT BLOOD (FIT) #1 OF 1 Negative Negative Aug 22, 2024 07:30 PM [facility] OCCULT BLOOD FIT X1 SCREEN Specimen Type: FECES No comment entered. Ordering Provider: SILVIA REDDY Report Released Date/Time: Aug 22, 2024 11:23 AM Reporting Lab: [address] [address] Performing Lab: [place] [address] [facility] [address] OCCULT BLOOD (FIT) #1 OF 1 Negative Negative Aug 22, 2024 06:15 PM [facility] OCCULT BLOOD FIT X1 SCREEN Specimen Type: FECES No comment entered. Ordering Provider: SILVIA REDDY Report Released Date/Time: Aug 22, 2024 11:23 AM Reporting Lab: [address] [address] Performing Lab: [facility] [address] [facility] [address] OCCULT BLOOD (FIT) #1 OF 1 Negative Negative Aug 22, 2024 04:24 PM [facility] GLUCOSE,BLOOD-poct (STL) Specimen Type: BLOOD Comment: Test Performed by: [id number] Meter #: [id number] Ordering Provider: SLIVIA REDDY Report Released Date/Time: Aug 22, 2024 04:36 PM Reporting Lab: [facility] [address] Performing Lab: [facility] #1 [facility] [address] GLUCOSE,BLOOD- poct (STL) 176 mg/dL H -Aug 22, 2024 04:23 PM [facility] GLUCOSE,BLOOD-poct (STL) Specimen Type: BLOOD Comment: Test Performed by: [id number] Meter #: [id number] Ordering Provider: SILVIA REDDY Report Released Date/Time: Aug 22, 2024 04:36 PM Reporting Lab: [facility] [address] Performing Lab: [facility] [address] GLUCOSE,BLOOD- poct (STL) 221 mg/dL H 72-Aug 22, 2024 11:15 AM [facility] GLUCOSE,BLOOD-poct (STL) Specimen Type: BLOOD Comment: Test Performed by: [id number] Meter #: [id number] Ordering Provider: SILVIA REDDY Report Released Date/Time: Aug 22, 2024 11:27 AM Reporting Lab: [facility] [address] Performing Lab: [facility] [address] GLUCOSE,BLOOD- poct (STL) 140 mg/dL H 72-99 Aug 22, 2024 08:03 AM [facility] FERRITIN Specimen Type: SERUM No comment entered. Ordering Provider: JUDIT PERKINS Report Released Date/Time: Aug 18, 2024 11:01 AM Reporting Lab: [facility] [address] [facility] [address] Performing Lab: [facility] [address] [facility] [address] FERRITIN 79.50 ng/mL 22-275 Aug 22, 2024 08:03 AM [facility] CBC Specimen Type: BLOOD No comment entered. Ordering Provider: SILVIA REDDY Report Released Date/Time: Aug 17, 2024 01:18 PM Reporting Lab: [facility] [address] Performing Lab: [facility] [address] WBC 3.5 10*3/uL L 3.6-11.2 RBC 3.23 [...] PM Reporting Lab: [facility] [address] [place] [address] Performing Lab: [address] [address] CREATININE 0.80 mg/dL 0.7-1.3 UREA NITROGEN 9.7 [...] >60 Aug 22, 2024 08:[address] [facility] IRON/TIBC PROFILE Specimen Type: SERUM No comment entered. Ordering Provider: JUDIT PERKINS Report Released Date/Time: Aug 18, 2024 11:01 AM Reporting Lab: [facility] [address] [facility] [address] Performing Lab: [address] [address] TIBC 283 ug/dL 250-450 TRANSFERRIN 226 mg/dL 163-344 IRON SATURATION 7 L 20-50 IRON 19 ug/dL L 65-175 Aug 22, 2024 08:03 AM [facility] B12 Specimen Type: SERUM No comment entered. Ordering Provider: JUDIT PERKINS Report Released Date/Time: Aug 18, 2024 11:01 AM Reporting Lab: [facility] [address] Performing Lab: [facility] [address] B12 631 pg/mL 213-816 Aug 22, 2024 05:03 AM [facility] GLUCOSE,BLOOD-poct (STL) Specimen Type: BLOOD Comment: Test Performed by: [id number] Meter #: [id number] Ordering Provider: SILVIA REDDY Report Released Date/Time: Aug 22, 2024 06:17 AM Reporting Lab: [facility] [address] Performing Lab: [facility] #[address] [facility] [address] GLUCOSE,BLOOD- poct (STL) 170 mg/dL H 72-Aug 21, 2024 04:32 PM [facility] GLUCOSE,BLOOD-poct (STL) Specimen Type: BLOOD Comment: Test Performed by: [id number] Meter #: [id number] Ordering Provider: SILVIA REDDY Report Released Date/Time: Aug 21, 2024 04:49 PM Reporting Lab: [facility] [address] Performing Lab: [facility] #[address] [facility] [address] GLUCOSE,BLOOD- poct (STL) 169 mg/dL H 72-99 Aug 21, 2024 11:53 AM [facility] GLUCOSE,BLOOD-poct (STL) Specimen Type: BLOOD Comment: Test Performed by: [id number] Meter #: [id number] Ordering Provider: SILVIA REDDY Report Released Date/Time: Aug 21, 2024 12:11 PM Reporting Lab: [facility] #[address] [facility] [address] Performing Lab: [facility] #[address] [facility] [address] GLUCOSE,BLOOD- poct (STL) 149 mg/dL H 72-99 Aug 21, 2024 05:10 AM [facility] GLUCOSE,BLOOD-poct (STL) Specimen Type: BLOOD Comment: Test Performed by: [id number] Meter #: [id number] Ordering Provider: SILVIA REDDY Report Released Date/Time: Aug 21, 2024 05:27 AM Reporting Lab: [facility] #[address] [place] [address] Performing Lab: [facility] #[address] [place] [phone] GLUCOSE,BLOOD- poct (STL) 118 mg/dL H 72-99 Aug 20, 2024 04:38 PM [facility] GLUCOSE,BLOOD-poct (STL) Specimen Type: BLOOD Comment: Test Performed by: [id number] Meter #: [id number] Ordering Provider: SILVIA REDDY Report Released Date/Time: Aug 21, 2024 01:55 AM Reporting Lab: [facility] [place] [address] Performing Lab: [facility] [place] [address] GLUCOSE,BLOOD- poct (STL) 169 mg/dL H 72-99 Aug 20, 2024 04:36 PM [facility] GLUCOSE,BLOOD-poct (STL) Specimen Type: BLOOD Comment: Test Performed by: [id number] Meter #: [id number] Ordering Provider: SILVIA REDDY Report Released Date/Time: Aug 21, 2024 01:55 AM Reporting Lab: [facility] [place] [address] Performing Lab: [facility] [place] [address] GLUCOSE,BLOOD- poct (STL) 395 mg/dL H 72-99 Aug 20, 2024 11:45 AM [facility] GLUCOSE,BLOOD-poct (STL) Specimen Type: BLOOD Comment: Test Performed by: [id number] Meter #: [id number] Ordering Provider: SILVIA REDDY Report Released Date/Time: Aug 20, 2024 11:56 AM Reporting Lab: [facility] [address] Performing Lab: [facility] #[address] [facility] [address] GLUCOSE,BLOOD- poct (STL) 169 mg/dL H 72-Aug 20, 2024 05:06 AM [facility] GLUCOSE,BLOOD-poct (STL) Specimen Type: BLOOD Comment: Test Performed by: [id number] Meter #: [id number] Ordering Provider: SILVIA REDDY Report Released Date/Time: Aug 20, 2024 06:05 AM Reporting Lab: [facility] [address] Performing Lab: [facility] [facility] [address] GLUCOSE,BLOOD- poct (STL) 115 mg/dL H 72-Aug 19, 2024 04:23 PM [facility] GLUCOSE,BLOOD-poct (STL) Specimen Type: BLOOD Comment: Test Performed by: [id number] Meter #: [id number] Ordering Provider: SILVIA REDDY Report Released Date/Time: Aug 19, 2024 05:54 PM Reporting Lab: [facility] [address] Performing Lab: [facility] #[facility] [address] GLUCOSE,BLOOD- poct (STL) 137 mg/dL H 72-99 Aug 19, 2024 11:28 AM [facility] GLUCOSE,BLOOD-poct (STL) Specimen Type: BLOOD Comment: Test Performed by: [id number] Meter #: [id number] Ordering Provider: SILVIA REDDY Report Released Date/Time: Aug 19, 2024 11:51 AM Reporting Lab: [facility] [address] Performing Lab: [facility] #[facility] [address] GLUCOSE,BLOOD- poct (STL) 190 mg/dL H 72-99 Aug 19, 2024 05:21 AM [facility] GLUCOSE,BLOOD-poct (STL) Specimen Type: BLOOD Comment: Test Performed by: [id number] Meter #: [id number] Ordering Provider: SILVIA REDDY Report Released Date/Time: Aug 19, 2024 05:56 AM Reporting Lab: [facility] [address] Performing Lab: [facility] [address] GLUCOSE,BLOOD- poct (STL) 130 mg/dL H Aug 18, 2024 04:49 PM [facility] GLUCOSE,BLOOD-poct (STL) Specimen Type: BLOOD Comment: Test Performed by: [id number] Meter #: [id number] Ordering Provider: SILVIA REDDY Report Released Date/Time: Aug 18, 2024 05:01 PM Reporting Lab: [facility] [address] Performing Lab: [facility] #[facility] [address] GLUCOSE,BLOOD- poct (STL) 129 mg/dL H Aug 18, 2024 11:23 AM [facility] GLUCOSE,BLOOD-poct (STL) Specimen Type: BLOOD Comment: Test Performed by: [id number] Meter #: [id number] Ordering Provider: SILVIA REDDY Report Released Date/Time: Aug 18, 2024 11:41 AM Reporting Lab: [facility] [address] Performing Lab: [facility] [address] GLUCOSE,BLOOD- poct (STL) 180 mg/dL H Aug 18, 2024 05:08 AM [facility] GLUCOSE,BLOOD-poct (STL) Specimen Type: BLOOD Comment: Test Performed by: [id number] Meter #: [id number] Ordering Provider: SILVIA REDDY Report Released Date/Time: Aug 18, 2024 05:31 AM Reporting Lab: [facility] [address] Performing Lab: [facility] [facility] [address] GLUCOSE,BLOOD- poct (STL) 127 mg/dL H 72-Aug 17, 2024 07:32 PM [facility] GLUCOSE,BLOOD-poct (STL) Specimen Type: BLOOD Comment: Test Performed by: [id number] Meter #: [id number] Ordering Provider: SILVIA RDEDY Report Released Date/Time: Aug 17, 2024 07:59 PM Reporting Lab: [facility] [address] Performing Lab: [facility] #[address] [place] [address] GLUCOSE,BLOOD- poct (STL) 154 mg/dL H -Aug 17, 2024 04:24 PM [facility] GLUCOSE,BLOOD-poct (STL) Specimen Type: BLOOD Comment: Test Performed by: [id number] Meter #: [id number] Ordering Provider: SILVIA REDDY Report Released Date/Time: Aug 17, 2024 04:35 PM Reporting Lab: [facility]1 [place] [phone] Performing Lab: [facility] [place] [address] GLUCOSE,BLOOD- poct (STL) 178 mg/dL H 72-Aug 17, 2024 05:09 AM [facility] GLUCOSE,BLOOD-poct (STL) Specimen Type: BLOOD Comment: Test Performed by: [id number] Meter #: [id number] Ordering Provider: SILVIA REDDY Report Released Date/Time: Aug 17, 2024 05:54 AM Reporting Lab: [facility] [address] Performing Lab: [facility] [address] GLUCOSE,BLOOD- poct (STL) 124 mg/dL H 72-Aug 16, 2024 07:40 PM [facility] GLUCOSE,BLOOD-poct (STL) Specimen Type: BLOOD Comment: Test Performed by: [id number] Meter #: [id number] Ordering Provider: SILVIA REDDY Report Released Date/Time: Aug 16, 2024 08:28 PM Reporting Lab: [facility] [address] Performing Lab: [facility] [address] GLUCOSE,BLOOD- poct (STL) 144 mg/dL H 72-Aug 16, 2024 04:19 PM [facility] GLUCOSE,BLOOD-poct (STL) Specimen Type: BLOOD Comment: Test Performed by: [id number] Meter #: [id number] Ordering Provider: SILVIA REDDY Report Released Date/Time: Aug 16, 2024 04:45 PM Reporting Lab: [facility] [address] Performing Lab: [facility] [address] GLUCOSE,BLOOD- poct (STL) 138 mg/dL H 72-Aug 16, 2024 11:52 AM [facility] GLUCOSE,BLOOD-poct (STL) Specimen Type: BLOOD Comment: Test Performed by: [id number] Meter #: [id number] Ordering Provider: SILVIA REDDY Report Released Date/Time: Aug 16, 2024 12:04 PM Reporting Lab: [facility] [address] Performing Lab: [facility] [address] GLUCOSE,BLOOD- poct (STL) 135 mg/dL H 72-99 Aug 16, 2024 05:24 AM [facility] GLUCOSE,BLOOD-poct (STL) Specimen Type: BLOOD Comment: Test Performed by: [id number] Meter #: [id number] Ordering Provider: SILVIA REDDY Report Released Date/Time: Aug 16, 2024 05:38 AM Reporting Lab: [facility] [address] Performing Lab: [facility] [address] GLUCOSE,BLOOD- poct (STL) 151 mg/dL H Aug 15, 2024 07:31 PM [facility] GLUCOSE,BLOOD-poct (STL) Specimen Type: BLOOD Comment: Test Performed by: [id number] Meter #: [id number] Ordering Provider: SILVIA REDDY Report Released Date/Time: Aug 15, 2024 08:07 PM Reporting Lab: [facility] [address] Performing Lab: [facility] [address] GLUCOSE,BLOOD- poct (STL) 173 mg/dL H Aug 15, 2024 04:18 PM [facility] GLUCOSE,BLOOD-poct (STL) Specimen Type: BLOOD Comment: Test Performed by: [id number] Meter #: [id number] Ordering Provider: SILVIA REDDY Report Released Date/Time: Aug 15, 2024 04:59 PM Reporting Lab: [facility] [address] Performing Lab: [facility] [address] GLUCOSE,BLOOD- poct (STL) 136 mg/dL H Aug 15, 2024 04:16 PM [facility] GLUCOSE,BLOOD-poct (STL) Specimen Type: BLOOD Comment: Test Performed by: [id number] Meter #: [id number] Ordering Provider: SILVIA REDDY Report Released Date/Time: Aug 15, 2024 04:59 PM Reporting Lab: [facility] [place] [address] Performing Lab: [facility] [address] GLUCOSE,BLOOD- poct (STL) 194 mg/dL H 72-Aug 15, 2024 11:39 AM [facility] GLUCOSE,BLOOD-poct (STL) Specimen Type: BLOOD Comment: Test Performed by: [id number] Meter #: [id number] Ordering Provider: SILVIA REDDY Report Released Date/Time: Aug 15, 2024 12:00 PM Reporting Lab: [facility] [place] [address] Performing Lab: [facility] [place] [address] GLUCOSE,BLOOD- poct (STL) 127 mg/dL H 72-Aug 15, 2024 05:07 AM [facility] GLUCOSE,BLOOD-poct (STL) Specimen Type: BLOOD Comment: Test Performed by: [id number] Meter #: [id number] Ordering Provider: SILVIA REDDY Report Released Date/Time: Aug 15, 2024 06:14 AM Reporting Lab: [facility] [place] [address] Performing Lab: [facility] [place] [address] GLUCOSE,BLOOD- poct (STL) 151 mg/dL H 72-Aug 14, 2024 04:22 PM [facility] GLUCOSE,BLOOD-poct (STL) Specimen Type: BLOOD Comment: Test Performed by: [id number] Meter #: [id number] Ordering Provider: SILVAI REDDY Report Released Date/Time: Aug 14, 2024 04:52 PM Reporting Lab: [facility] [address] Performing Lab: [facility] [address] GLUCOSE,BLOOD- poct (STL) 129 mg/dL H 72-99 Aug 14, 2024 11:21 AM [facility] GLUCOSE,BLOOD-poct (STL) Specimen Type: BLOOD Comment: Test Performed by: [id number] Meter #: [id number] Ordering Provider: SILVIA REDDY Report Released Date/Time: Aug 14, 2024 11:37 AM Reporting Lab: [facility] [address] Performing Lab: [facility] [address] GLUCOSE,BLOOD- poct (STL) 135 mg/dL H 72-Aug 14, 2024 06:59 AM [facility] QUANTIFERON-TB,4 TUBE Specimen Type: [...] For additional information, please refer to http://education. [employer]/faq/QHN986 (This link is being provided for information/ educational purposes only.) Test Performed by [employer] [place], [employer] [facility], [address] [place] [address] Tommie Garcia M.D., Ph.D., Director of Laboratories , [facility] [id number] Ordering Provider: SILVIA REDDY Report Released Date/Time: Aug 11, 2024 03:58 PM Reporting Lab: [facility] [address] [facility] [address] Performing Lab: [facility] [id number] [place] [address] .NIL - QUANTIFERON 0.04 [IU]/mL .MITOGEN-NIL 0.39 [IU]/mL .QUANTIFERON INDETERMINATE NEGATIVE .TB1-NIL <0.00 [IU]/mL .TB2-NIL <0.00 [IU]/mL Aug 14, 2024 06:[address] [facility] MAGNESIUM Specimen Type: PLASMA Comment: No hemolysis noted. Ordering Provider: SILVIA REDDY Report Released Date/Time: Aug 11, 2024 03:58 PM Reporting Lab: [facility] [address] Performing Lab: [facility] [address] MAGNESIUM 1.9 mg/dL 1.6-2.6 Aug 14, 2024 06:[address] [facility] B12 Specimen Type: SERUM No comment entered. Ordering Provider: SILVIA REDDY Report Released Date/Time: Aug 11, 2024 03:58 PM Reporting Lab: [facility] [address] Performing Lab: [facility] [address] B12 757 pg/mL 213-816 Aug 14, 2024 06:[address] [facility] COMPREHENSIVE METABOLIC PANEL Specimen Type: PLASMA Comment: No hemolysis noted. Ordering Provider: SILVIA REDDY Report Released Date/Time: Aug 11, 2024 03:58 PM Reporting Lab: [facility] [id number] Performing Lab: [facility] [id number] CREATININE 0.75 mg/dL 0.70-1.30 UREA NITROGEN 13.6 [...] >60 Aug 14, 2024 06:[address] [facility] CBC Specimen Type: BLOOD No comment entered. Ordering Provider: SILVIA REDDY Report Released Date/Time: Aug 11, 2024 03:58 PM Reporting Lab: [facility] [id number] Performing Lab: [facility] [id number] WBC 4.1 10*3/uL 3.6-11.2 RBC 3.20 10*6/uL [...] 06:59 AM [facility] FOLATE ([facility]) Specimen Type: SERUM No comment entered. Ordering Provider: SILVIA REDDY Report Released Date/Time: Aug 11, 2024 03:58 PM Reporting Lab: [facility] [place] [address] Performing Lab: [facility] [place] [address] FOLATE ([facility]) 6.8 ng/mL L 7-20 Aug 14, 2024 06:59 AM [facility] VITAMIN D, 25-HYDROXY Specimen Type: SERUM No comment entered. Ordering Provider: SILVIA REDDY Report Released Date/Time: Aug 11, 2024 03:58 PM Reporting Lab: [facility] [place] [address] Performing Lab: [facility] [place] [address] VITAMIN D, 25-HYDROXY 8.9 ng/mL L 30-96 Aug 14, 2024 05:08 AM [facility] GLUCOSE,BLOOD-poct ([facility]) Specimen Type: BLOOD Comment: Test Performed by: [id number] Meter #: [id number] Ordering Provider: SILVIA REDDY Report Released Date/Time: Aug 14, 2024 05:52 AM Reporting Lab: [facility] [place] [address] Performing Lab: [facility] [place] [address] GLUCOSE,BLOOD- poct (L) 135 mg/dL H 72-99 Aug 13, 2024 04:27 PM [facility] GLUCOSE,BLOOD-poct ([facility]) Specimen Type: BLOOD Comment: Test Performed by: [id number] Meter #: [id number] Ordering Provider: SILVIA REDDY Report Released Date/Time: Aug 13, 2024 04:41 PM Reporting Lab: [facility] [id number] Performing Lab: [facility] [address] GLUCOSE,BLOOD- poct ([facility]) 181 mg/dL H -Aug 13, 2024 11:33 AM [facility] GLUCOSE,BLOOD-poct ([facility]) Specimen Type: BLOOD Comment: Test Performed by: [id number] Meter #: [id number] Ordering Provider: SILVIA REDDY Report Released Date/Time: Aug 13, 2024 03:55 PM Reporting Lab: [facility] [address] Performing Lab: [facility] [address] GLUCOSE,BLOOD- poct (STL) 140 mg/dL H -Aug 13, 2024 05:54 AM [facility] GLUCOSE,BLOOD-poct (STL) Specimen Type: BLOOD Comment: Test Performed by: [id number] Meter #: [id number] Ordering Provider: SILVIA REDDY Report Released Date/Time: Aug 13, 2024 06:20 AM Reporting Lab: [facility] [address] Performing Lab: [facility] [facility] [address] GLUCOSE,BLOOD- poct (STL) 112 mg/dL H Aug 12, 2024 04:35 PM [facility] GLUCOSE,BLOOD-poct (STL) Specimen Type: BLOOD Comment: Test Performed by: [id number] Meter #: [id number] Ordering Provider: SILVIA REDDY Report Released Date/Time: Aug 12, 2024 04:47 PM Reporting Lab: [facility] [address] Performing Lab: [facility] [address] GLUCOSE,BLOOD- poct (STL) 128 mg/dL H 72-99 Aug 12, 2024 11:26 AM [facility] GLUCOSE,BLOOD-poct (STL) Specimen Type: BLOOD Comment: Test Performed by: [id number] Meter #: [id number] Ordering Provider: SILVIA REDDY Report Released Date/Time: Aug 12, 2024 11:45 AM Reporting Lab: [facility] [address] Performing Lab: [facility] [place] [address] GLUCOSE,BLOOD- poct (STL) 188 mg/dL H 72-Aug 12, 2024 06:13 AM [facility] GLUCOSE,BLOOD-poct (STL) Specimen Type: BLOOD Comment: Test Performed by: [id number] Meter #: [id number] Ordering Provider: SILVIA REDDY Report Released Date/Time: Aug 12, 2024 06:25 AM Reporting Lab: [facility] [address] Performing Lab: [facility] [address] GLUCOSE,BLOOD- poct (STL) 116 mg/dL H 72-99 Aug 11, 2024 04:10 PM [facility] GLUCOSE,BLOOD-poct (STL) Specimen Type: BLOOD Comment: Test Performed by: [id number] Meter #: [id number] Ordering Provider: SILVIA REDDY Report Released Date/Time: Aug 11, 2024 04:27 PM Reporting Lab: [facility] [place] [address] Performing Lab: [facility] [address] GLUCOSE,BLOOD- poct (STL) 184 mg/dL H 72-99 [...] Aug 11, 2024 02:03 PM Reporting Lab: [address] [address] Performing Lab: [address] [address] MRSA SURVL NARES DNA Negative Negative Jul 20, 2024 11:18 AM [facility] APTT Specimen Type: PLASMA No comment entered. Ordering Provider: MANUEL BAIRD Report Released Date/Time: Jul 19, 2024 04:00 PM Reporting Lab: [address] [address] Performing Lab: [address] [address] APTT 32.1 s 26.7-39.9 Jul 20, 2024 11:18 AM [facility] PT/INR NEW (L-TX) Specimen Type: PLASMA No comment entered. Ordering Provider: MANUEL BAIRD Report Released Date/Time: Jul 19, 2024 04:00 PM Reporting Lab: [address] [address] Performing Lab: [address] [address] PROTIME 14.4 s H 9.4-12.5 INR VALUE 1.3 {INR} Jul 20, 2024 11:18 AM [facility] CBC Specimen Type: BLOOD No comment entered. Ordering Provider: MANUEL BAIRD Report Released Date/Time: Jul 19, 2024 04:00 PM Reporting Lab: [facility] [address] [facility] [address] Performing Lab: [address] [address] WBC 4.7 10*3/uL 3.6-11.2 RBC 4.86 10*6/uL [...] Jun 07, 2024 01:43 PM Reporting Lab: [address] [address] Performing Lab: [address] [address] CREATININE 0.85 mg/dL 0.7-1.3 UREA NITROGEN 15.2 [...] PM 97.8 68 122/76 18 96 0 [facility] Aug 15, 2024 03:[address] [facility] Aug 15, 2024 12:[address] [facility] Aug 15, 2024 10:00 AM 97.8 84 120/72 18 95 0 [facility] Aug 15, 2024 05:35 AM 98.1 80 115/67 20 95 [facility] Advance Directives: All historical and [...] 19, 2017 ADVANCE DIRECTIVE DISCUSSION ERICK BARDALES [facility]
--- OUTSIDE RECORDS SUMMARY | 2024-11-17 04:06 | XMS_ITS ---
[place] DAILY HOSPITALIZATION DATA [facility] Encounter Summary Created on: November 16, 2024 CHET WALKER : 1950 Sex: Male Author Name [facility] [place] [facility] [place] Address [address] [place] [address] Care Team Providers Care Director Title Name Role Phone MANUEL BAIRD Primary Care [...] PART A Apr 08, 2017 PART A [id number] [phone] ASHLEY WALKER PATIENT Selected Encounter This section includes the information on record at [place] for the Encounter. Date/Time Encounter Type Encounter Description Reason Pro vider Source Aug 15, 2024 09:39 AM Inpatient Visit DAILY HOSPITALIZATION DATA [place] [...] [place] Aug 30, 2024 09:30 AM [facility]BULATORY - MEDICINE [facility] Aug 31, 2024 01:00 PM AMBULATORY - SURGERY [facility] Sep 21, 2024 01:30 PM AMBULATORY - MEDICINE [facility] Sep 22, 2024 11:00 AM AMBULATORY - MEDICINE [facility] Sep 29, 2024 12:30 PM AMBULATORY - MEDICINE [facility] Oct 02, 2024 09:30 AM AMBULATORY - MEDICINE [facility] Nov 20, 2024 10:30 AM AMBULATORY - SURGERY [facility] Nov 21, 2024 10:00 AM AMBULATORY - NONE [facility] Dec 11, 2024 10:30 [...] Aug 17, 2024 03:47 PM Consult Order [facility] Cons Bedside [facility] [...] 2024 11:26 AM Reporting Lab: [facility] [address] Performing Lab: [facility] [address] MAGNESIUM 1.8 mg/dL 1.6-2.6 Aug 23, 2024 08:21 AM [facility] CBC Specimen Type: BLOOD No comment entered. Ordering Provider: SILVIA REDDY Report Released Date/Time: Aug 22, 2024 11:19 AM Reporting Lab: [facility] [address] Performing Lab: [facility] [address] WBC 4.0 10*3/uL 3.6-11.2 RBC 3.65 10*6/uL [...] Specimen Type: BLOOD Comment: Test Performed by: [id number] Meter #: [id number] Ordering Provider: SILVIA REDDY Report Released Date/Time: Aug 23, 2024 05:23 AM Reporting Lab: [facility] [address] Performing Lab: [facility] #1 [facility] [address] GLUCOSE,BLOOD- poct (STL) 99 mg/dL 72-99 Aug 23, 2024 02:45 AM [facility] OCCULT BLOOD FIT X1 SCREEN Specimen Type: FECES No comment entered. Ordering Provider: SILVIA REDDY Report Released Date/Time: Aug 22, 2024 11:23 AM Reporting Lab: [address] [address] Performing Lab: [address] [address] OCCULT BLOOD (FIT) #1 OF 1 Negative Negative Aug 22, 2024 07:30 PM [facility] OCCULT BLOOD FIT X1 SCREEN Specimen Type: FECES No comment entered. Ordering Provider: SILVIA REDDY Report Released Date/Time: Aug 22, 2024 11:23 AM Reporting Lab: [address] [address] Performing Lab: [address] [address] OCCULT BLOOD (FIT) #1 OF 1 Negative Negative Aug 22, 2024 06:15 PM [facility] OCCULT BLOOD FIT X1 SCREEN Specimen Type: FECES No comment entered. Ordering Provider: SILVIA REDDY Report Released Date/Time: Aug 22, 2024 11:23 AM Reporting Lab: [address] [address] Performing Lab: [facility] [address] [facility] [address] OCCULT BLOOD (FIT) #1 OF 1 Negative Negative Aug 22, 2024 04:24 PM [facility] GLUCOSE,BLOOD-poct (STL) Specimen Type: BLOOD Comment: Test Performed by: [id number] Meter #: [id number] Ordering Provider: SILVIA REDDY Report Released Date/Time: Aug 22, 2024 04:36 PM Reporting Lab: [facility] [address] Performing Lab: [facility] [address] GLUCOSE,BLOOD- poct (STL) 176 mg/dL H -Aug 22, 2024 04:23 PM [facility] GLUCOSE,BLOOD-poct (STL) Specimen Type: BLOOD Comment: Test Performed by: [id number] Meter #: [id number] Ordering Provider: SILVIA REDDY Report Released Date/Time: Aug 22, 2024 04:36 PM Reporting Lab: [facility] [address] Performing Lab: [facility] [address] GLUCOSE,BLOOD- poct (STL) 221 mg/dL H 72-Aug 22, 2024 11:15 AM [facility] GLUCOSE,BLOOD-poct (STL) Specimen Type: BLOOD Comment: Test Performed by: [id number] Meter #: [id number] Ordering Provider: SILVIA REDDY Report Released Date/Time: Aug 22, 2024 11:27 AM Reporting Lab: [facility] [address] Performing Lab: [facility] [address] GLUCOSE,BLOOD- poct (STL) 140 mg/dL H 72-99 Aug 22, 2024 08:03 AM [facility] FERRITIN Specimen Type: SERUM No comment entered. Ordering Provider: JUDIT PERKINS Report Released Date/Time: Aug 18, 2024 11:01 AM Reporting Lab: [facility] [address] [facility] [address] Performing Lab: [facility] [address] [facility] [address] FERRITIN 79.50 ng/mL 22-275 Aug 22, 2024 08:03 AM [facility] B12 Specimen Type: SERUM No comment entered. Ordering Provider: JUDIT PERKINS Report Released Date/Time: Aug 18, 2024 11:01 AM Reporting Lab: [facility] [address] Performing Lab: [facility] #1 [facility] [address] B12 631 pg/mL 213-816 Aug 22, 2024 08:03 AM [facility] IRON/TIBC PROFILE Specimen Type: SERUM No comment entered. Ordering Provider: JUDIT PERKINS Report Released Date/Time: Aug 18, 2024 11:01 AM Reporting Lab: [facility] [address] [facility] [address] Performing Lab: [address] [address] TIBC 283 ug/dL 250-450 TRANSFERRIN 226 mg/dL 163-344 IRON SATURATION 7 L 20-50 IRON 19 ug/dL L 65-175 Aug 22, 2024 08:03 AM [facility] COMPREHENSIVE METABOLIC PANEL Specimen Type: PLASMA Comment: No hemolysis noted. Ordering Provider: SILVIA REDDY Report Released Date/Time: Aug 17, 2024 01:18 PM Reporting Lab: [facility] [address] [facility] [address] Performing Lab: [address] [address] CREATININE 0.80 mg/dL 0.7-1.3 UREA NITROGEN 9.7 [...] Aug 22, 2024 08:03 AM [facility] CBC Specimen Type: BLOOD No comment entered. Ordering Provider: SILVIA REDDY Report Released Date/Time: Aug 17, 2024 01:18 PM Reporting Lab: [facility] [address] Performing Lab: [facility] [address] WBC 3.5 10*3/uL L 3.6-11.2 RBC 3.23 [...] NRBC% 0 Aug 22, 2024 05:03 AM [facility] GLUCOSE,BLOOD-poct (STL) Specimen Type: BLOOD Comment: Test Performed by: [id number] Meter #: [id number] Ordering Provider: SILVIA REDDY Report Released Date/Time: Aug 22, 2024 06:17 AM Reporting Lab: [facility] #1 [facility] [address] Performing Lab: [facility] [address] GLUCOSE,BLOOD- poct (STL) 170 mg/dL H 72-Aug 21, 2024 04:32 PM [facility] GLUCOSE,BLOOD-poct (STL) Specimen Type: BLOOD Comment: Test Performed by: [id number] Meter #: [id number] Ordering Provider: SILVIA REDDY Report Released Date/Time: Aug 21, 2024 04:49 PM Reporting Lab: [facility] [address] Performing Lab: [facility] #[address] [facility] [address] GLUCOSE,BLOOD- poct (STL) 169 mg/dL H 72-99 Aug 21, 2024 11:53 AM [facility] GLUCOSE,BLOOD-poct (STL) Specimen Type: BLOOD Comment: Test Performed by: [id number] Meter #: [id number] Ordering Provider: SILVIA REDDY Report Released Date/Time: Aug 21, 2024 12:11 PM Reporting Lab: [facility] [facility] [address] Performing Lab: [facility] #[address] [facility] [address] GLUCOSE,BLOOD- poct (STL) 149 mg/dL H 72-99 Aug 21, 2024 05:10 AM [facility] GLUCOSE,BLOOD-poct (STL) Specimen Type: BLOOD Comment: Test Performed by: [id number] Meter #: [id number] Ordering Provider: SILVIA REDDY Report Released Date/Time: Aug 21, 2024 05:27 AM Reporting Lab: [facility] [address] [place] [address] Performing Lab: [facility] [address] [place] [address] GLUCOSE,BLOOD- poct (STL) 118 mg/dL H 72-99 Aug 20, 2024 04:38 PM [facility] GLUCOSE,BLOOD-poct (STL) Specimen Type: BLOOD Comment: Test Performed by: [id number] Meter #: [id number] Ordering Provider: SILVIA REDDY Report Released Date/Time: Aug 21, 2024 01:55 AM Reporting Lab: [facility] [place] [address] Performing Lab: [facility] [address] [place] [address] GLUCOSE,BLOOD- poct (STL) 169 mg/dL H 72-99 Aug 20, 2024 04:36 PM [facility] GLUCOSE,BLOOD-poct (STL) Specimen Type: BLOOD Comment: Test Performed by: [id number] Meter #: [id number] Ordering Provider: SILVIA REDDY Report Released Date/Time: Aug 21, 2024 01:55 AM Reporting Lab: [facility] [place] [address] Performing Lab: [facility] [address] [place] [address] GLUCOSE,BLOOD- poct (STL) 395 mg/dL H 72-99 Aug 20, 2024 11:45 AM [facility] GLUCOSE,BLOOD-poct (STL) Specimen Type: BLOOD Comment: Test Performed by: [id number] Meter #: [id number] Ordering Provider: SILVIA REDDY Report Released Date/Time: Aug 20, 2024 11:56 AM Reporting Lab: [facility] [address] Performing Lab: [facility] [facility] [address] GLUCOSE,BLOOD- poct (STL) 169 mg/dL H 72-Aug 20, 2024 05:06 AM [facility] GLUCOSE,BLOOD-poct (STL) Specimen Type: BLOOD Comment: Test Performed by: [id number] Meter #: [id number] Ordering Provider: SILVIA REDDY Report Released Date/Time: Aug 20, 2024 06:05 AM Reporting Lab: [facility] [address] Performing Lab: [facility] #[address] [facility] [address] GLUCOSE,BLOOD- poct (STL) 115 mg/dL H -Aug 19, 2024 04:23 PM [facility] GLUCOSE,BLOOD-poct (STL) Specimen Type: BLOOD Comment: Test Performed by: [id number] Meter #: [id number] Ordering Provider: SILVIA REDDY Report Released Date/Time: Aug 19, 2024 05:54 PM Reporting Lab: [facility] [address] Performing Lab: [facility] #1 [facility] [address] GLUCOSE,BLOOD- poct (STL) 137 mg/dL H 72-Aug 19, 2024 11:28 AM [facility] GLUCOSE,BLOOD-poct (STL) Specimen Type: BLOOD Comment: Test Performed by: [id number] Meter #: [id number] Ordering Provider: SILVIA REDDY Report Released Date/Time: Aug 19, 2024 11:51 AM Reporting Lab: [facility] [address] Performing Lab: [facility] [address] GLUCOSE,BLOOD- poct (STL) 190 mg/dL H Aug 19, 2024 05:21 AM [facility] GLUCOSE,BLOOD-poct (STL) Specimen Type: BLOOD Comment: Test Performed by: [id number] Meter #: [id number] Ordering Provider: SILVIA REDDY Report Released Date/Time: Aug 19, 2024 05:56 AM Reporting Lab: [facility] [address] Performing Lab: [facility] #1 [facility] [address] GLUCOSE,BLOOD- poct (STL) 130 mg/dL H Aug 18, 2024 04:49 PM [facility] GLUCOSE,BLOOD-poct (STL) Specimen Type: BLOOD Comment: Test Performed by: [id number] Meter #: [id number] Ordering Provider: SILVIA REDDY Report Released Date/Time: Aug 18, 2024 05:01 PM Reporting Lab: [facility] [address] Performing Lab: [facility] #1 [facility] [address] GLUCOSE,BLOOD- poct (STL) 129 mg/dL H Aug 18, 2024 11:23 AM [facility] GLUCOSE,BLOOD-poct (STL) Specimen Type: BLOOD Comment: Test Performed by: [id number] Meter #: [id number] Ordering Provider: SILVIA REDDY Report Released Date/Time: Aug 18, 2024 11:41 AM Reporting Lab: [facility] [address] Performing Lab: [facility] [address] GLUCOSE,BLOOD- poct (STL) 180 mg/dL H Aug 18, 2024 05:08 AM [facility] GLUCOSE,BLOOD-poct (STL) Specimen Type: BLOOD Comment: Test Performed by: [id number] Meter #: [id number] Ordering Provider: SILVIA REDDY Report Released Date/Time: Aug 18, 2024 05:31 AM Reporting Lab: [facility] [address] Performing Lab: [facility] #[address] [facility] [address] GLUCOSE,BLOOD- poct (STL) 127 mg/dL H 72-Aug 17, 2024 07:32 PM [facility] GLUCOSE,BLOOD-poct (STL) Specimen Type: BLOOD Comment: Test Performed by: [id number] Meter #: [id number] Ordering Provider: SILVIA REDDY Report Released Date/Time: Aug 17, 2024 07:59 PM Reporting Lab: [facility] [address] Performing Lab: [facility] #[address] [place] [address] GLUCOSE,BLOOD- poct (STL) 154 mg/dL H -Aug 17, 2024 04:24 PM [facility] GLUCOSE,BLOOD-poct (STL) Specimen Type: BLOOD Comment: Test Performed by: [id number] Meter #: [id number] Ordering Provider: SILVIA REDDY Report Released Date/Time: Aug 17, 2024 04:35 PM Reporting Lab: [facility] [address] Performing Lab: [facility] [place] [address] GLUCOSE,BLOOD- poct (STL) 178 mg/dL H 72-Aug 17, 2024 05:09 AM [facility] GLUCOSE,BLOOD-poct (STL) Specimen Type: BLOOD Comment: Test Performed by: [id number] Meter #: [id number] Ordering Provider: SILVIA REDDY Report Released Date/Time: Aug 17, 2024 05:54 AM Reporting Lab: [facility] [address] Performing Lab: [facility] [address] GLUCOSE,BLOOD- poct (STL) 124 mg/dL H 72-Aug 16, 2024 07:40 PM [facility] GLUCOSE,BLOOD-poct (STL) Specimen Type: BLOOD Comment: Test Performed by: [id number] Meter #: [id number] Ordering Provider: SILVIA REDDY Report Released Date/Time: Aug 16, 2024 08:28 PM Reporting Lab: [facility] [address] Performing Lab: [facility] [address] GLUCOSE,BLOOD- poct (STL) 144 mg/dL H -Aug 16, 2024 04:19 PM [facility] GLUCOSE,BLOOD-poct (STL) Specimen Type: BLOOD Comment: Test Performed by: [id number] Meter #: [id number] Ordering Provider: SILVIA REDDY Report Released Date/Time: Aug 16, 2024 04:45 PM Reporting Lab: [facility] [address] Performing Lab: [facility] [address] GLUCOSE,BLOOD- poct (STL) 138 mg/dL H -Aug 16, 2024 11:52 AM [facility] GLUCOSE,BLOOD-poct (STL) Specimen Type: BLOOD Comment: Test Performed by: [id number] Meter #: [id number] Ordering Provider: SILVIA REDDY Report Released Date/Time: Aug 16, 2024 12:04 PM Reporting Lab: [facility] [address] Performing Lab: [facility] [address] GLUCOSE,BLOOD- poct (STL) 135 mg/dL H Aug 16, 2024 05:24 AM [facility] GLUCOSE,BLOOD-poct (STL) Specimen Type: BLOOD Comment: Test Performed by: [id number] Meter #: [id number] Ordering Provider: SILVIA REDDY Report Released Date/Time: Aug 16, 2024 05:38 AM Reporting Lab: [facility] [address] Performing Lab: [facility] [address] GLUCOSE,BLOOD- poct (STL) 151 mg/dL H Aug 15, 2024 07:31 PM [facility] GLUCOSE,BLOOD-poct (STL) Specimen Type: BLOOD Comment: Test Performed by: [id number] Meter #: [id number] Ordering Provider: SILVIA REDDY Report Released Date/Time: Aug 15, 2024 08:07 PM Reporting Lab: [facility] [address] Performing Lab: [facility] [address] GLUCOSE,BLOOD- poct (STL) 173 mg/dL H Aug 15, 2024 04:18 PM [facility] GLUCOSE,BLOOD-poct (STL) Specimen Type: BLOOD Comment: Test Performed by: [id number] Meter #: [id number] Ordering Provider: SILVIA REDDY Report Released Date/Time: Aug 15, 2024 04:59 PM Reporting Lab: [facility] [address] Performing Lab: [facility] [address] GLUCOSE,BLOOD- poct (STL) 136 mg/dL H Aug 15, 2024 04:16 PM [facility] GLUCOSE,BLOOD-poct (STL) Specimen Type: BLOOD Comment: Test Performed by: [id number] Meter #: [id number] Ordering Provider: SILVIA REDDY Report Released Date/Time: Aug 15, 2024 04:59 PM Reporting Lab: [facility] [address] Performing Lab: [facility] [address] GLUCOSE,BLOOD- poct (STL) 194 mg/dL H 72-Aug 15, 2024 11:39 AM [facility] GLUCOSE,BLOOD-poct (STL) Specimen Type: BLOOD Comment: Test Performed by: [id number] Meter #: [id number] Ordering Provider: SILVIA REDDY Report Released Date/Time: Aug 15, 2024 12:00 PM Reporting Lab: [facility] [place] [address] Performing Lab: [facility] [place] [address] GLUCOSE,BLOOD- poct (STL) 127 mg/dL H 72-Aug 15, 2024 05:07 AM [facility] GLUCOSE,BLOOD-poct (STL) Specimen Type: BLOOD Comment: Test Performed by: [id number] Meter #: [id number] Ordering Provider: SILVIA REDDY Report Released Date/Time: Aug 15, 2024 06:14 AM Reporting Lab: [facility] [place] [address] Performing Lab: [facility] [place] [address] GLUCOSE,BLOOD- poct (STL) 151 mg/dL H 72-99 Aug 14, 2024 04:22 PM [facility] GLUCOSE,BLOOD-poct (STL) Specimen Type: BLOOD Comment: Test Performed by: [id number] Meter #: [id number] Ordering Provider: SILVIA REDDY Report Released Date/Time: Aug 14, 2024 04:52 PM Reporting Lab: [facility] [address] Performing Lab: [facility] [address] GLUCOSE,BLOOD- poct (STL) 129 mg/dL H 72-99 Aug 14, 2024 11:21 AM [facility] GLUCOSE,BLOOD-poct (STL) Specimen Type: BLOOD Comment: Test Performed by: [id number] Meter #: [id number] Ordering Provider: SILVIA REDDY Report Released Date/Time: Aug 14, 2024 11:37 AM Reporting Lab: [facility] [address] Performing Lab: [facility] [address] GLUCOSE,BLOOD- poct (STL) 135 mg/dL H 72-Aug 14, 2024 06:59 AM [facility] QUANTIFERON-TB,4 TUBE Specimen Type: BLOOD Comment: [...] For additional information, please refer to [email or web address]. [email or web address]/[email or web address] (This link is being provided for information/ educational purposes only.) Test Performed by [facility], [facility], [address] [place] [address] Tommie Garcia M.D., Ph.D., Director of Laboratories , [facility] [id number] Ordering Provider: SILVIA REDDY Report Released Date/Time: Aug 11, 2024 03:58 PM Reporting Lab: [facility] [address] [facility] [address] Performing Lab: [facility] [id number] [place] [address] .NIL - QUANTIFERON 0.04 [IU]/mL .MITOGEN-NIL 0.39 [IU]/mL .QUANTIFERON INDETERMINATE NEGATIVE .TB1-NIL <0.00 [IU]/mL .TB2-NIL <0.00 [IU]/mL Aug 14, 2024 06:59 AM [facility] MAGNESIUM Specimen Type: PLASMA Comment: No hemolysis noted. Ordering Provider: SILVIA REDDY Report Released Date/Time: Aug 11, 2024 03:58 PM Reporting Lab: [facility] [address] Performing Lab: [facility] [address] MAGNESIUM 1.9 mg/dL 1.6-2.6 Aug 14, 2024 06:59 AM [facility] B12 Specimen Type: SERUM No comment entered. Ordering Provider: SILVIA REDDY Report Released Date/Time: Aug 11, 2024 03:58 PM Reporting Lab: [facility] [address] Performing Lab: [facility] [address] B12 757 pg/mL 213-816 Aug 14, 2024 06:59 AM [facility] FOLATE (STL-MA) Specimen Type: SERUM No comment entered. Ordering Provider: SILVIA REDDY Report Released Date/Time: Aug 11, 2024 03:58 PM Reporting Lab: [facility] [address] Performing Lab: [facility] [address] FOLATE (STL-MA) 6.8 ng/mL L 7-20 Aug 14, 2024 06:59 AM [facility] VITAMIN D, 25-HYDROXY Specimen Type: SERUM No comment entered. Ordering Provider: SILVIA REDDY Report Released Date/Time: Aug 11, 2024 03:58 PM Reporting Lab: [facility] [address] Performing Lab: [facility] [address] VITAMIN D, 25-HYDROXY 8.9 ng/mL L 30-96 Aug 14, 2024 06:59 AM [facility] CBC Specimen Type: BLOOD No comment entered. Ordering Provider: SILVIA REDDY Report Released Date/Time: Aug 11, 2024 03:58 PM Reporting Lab: [facility] [address] Performing Lab: [facility] [address] WBC 4.1 10*3/uL 3.6-11.2 RBC 3.20 10*6/uL [...] 2024 06:59 AM [facility] COMPREHENSIVE METABOLIC PANEL Specimen Type: PLASMA Comment: No hemolysis noted. Ordering Provider: SILVIA REDDY Report Released Date/Time: Aug 11, 2024 03:58 PM Reporting Lab: [facility] [address] Performing Lab: [facility] [address] CREATININE 0.75 mg/dL 0.70-1.30 UREA NITROGEN 13.6 [...] 95.88 >60 Aug 14, 2024 05:08 AM [facility] GLUCOSE,BLOOD-poct (STL) Specimen Type: BLOOD Comment: Test Performed by: [id number] Meter #: [id number] Ordering Provider: SILVIA REDDY Report Released Date/Time: Aug 14, 2024 05:52 AM Reporting Lab: [facility] [address] Performing Lab: [facility] [address] GLUCOSE,BLOOD- poct (STL) 135 mg/dL H 72-99 Aug 13, 2024 04:27 PM [facility] GLUCOSE,BLOOD-poct (STL) Specimen Type: BLOOD Comment: Test Performed by: [id number] Meter #: [id number] Ordering Provider: SILVIA REDDY Report Released Date/Time: Aug 13, 2024 04:41 PM Reporting Lab: [facility] [address] Performing Lab: [facility] [address] GLUCOSE,BLOOD- poct (STL) 181 mg/dL H -Aug 13, 2024 11:33 AM [facility] GLUCOSE,BLOOD-poct (STL) Specimen Type: BLOOD Comment: Test Performed by: [id number] Meter #: [id number] Ordering Provider: SILVIA REDDY Report Released Date/Time: Aug 13, 2024 03:55 PM Reporting Lab: [facility] [address] Performing Lab: [facility] [place] [id number] GLUCOSE,BLOOD- poct (STL) 140 mg/dL H -Aug 13, 2024 05:54 AM [facility] GLUCOSE,BLOOD-poct (STL) Specimen Type: BLOOD Comment: Test Performed by: [id number] Meter #: [id number] Ordering Provider: SILVIA REDDY Report Released Date/Time: Aug 13, 2024 06:20 AM Reporting Lab: [facility] [address] Performing Lab: [facility] [address] GLUCOSE,BLOOD- poct (STL) 112 mg/dL H -Aug 12, 2024 04:35 PM [facility] GLUCOSE,BLOOD-poct (STL) Specimen Type: BLOOD Comment: Test Performed by: [id number] Meter #: [id number] Ordering Provider: SILVIA REDDY Report Released Date/Time: Aug 12, 2024 04:47 PM Reporting Lab: [facility] [address] Performing Lab: [facility] [address] GLUCOSE,BLOOD- poct (STL) 128 mg/dL H 72-99 Aug 12, 2024 11:26 AM [facility] GLUCOSE,BLOOD-poct (STL) Specimen Type: BLOOD Comment: Test Performed by: [id number] Meter #: [id number] Ordering Provider: SILVIA REDDY Report Released Date/Time: Aug 12, 2024 11:45 AM Reporting Lab: [facility] [address] Performing Lab: [facility] [place] [address] GLUCOSE,BLOOD- poct (STL) 188 mg/dL H 72-99 Aug 12, 2024 06:13 AM [facility] GLUCOSE,BLOOD-poct (STL) Specimen Type: BLOOD Comment: Test Performed by: [id number] Meter #: [id number] Ordering Provider: SILVIA REDDY Report Released Date/Time: Aug 12, 2024 06:25 AM Reporting Lab: [facility] [address] Performing Lab: [facility] [address] GLUCOSE,BLOOD- poct (STL) 116 mg/dL H 72-99 Aug 11, 2024 04:10 PM [facility] GLUCOSE,BLOOD-poct (STL) Specimen Type: BLOOD Comment: Test Performed by: [id number] Meter #: [id number] Ordering Provider: SILVIA REDDY Report Released Date/Time: Aug 11, 2024 04:27 PM Reporting Lab: [facility] [place] [address] Performing Lab: [facility] [address] GLUCOSE,BLOOD- poct (STL) 184 mg/dL H 72-99 [...] Aug 11, 2024 02:03 PM Reporting Lab: [address] [address] Performing Lab: [address] [address] MRSA SURVL NARES DNA Negative Negative Jul 20, 2024 11:18 AM [facility] APTT Specimen Type: PLASMA No comment entered. Ordering Provider: MANUEL BAIRD Report Released Date/Time: Jul 19, 2024 04:00 PM Reporting Lab: [address] [address] Performing Lab: [address] [address] APTT 32.1 s 26.7-39.9 Jul 20, 2024 11:18 AM [facility] PT/INR NEW (STL-MA) Specimen Type: PLASMA No comment entered. Ordering Provider: MANUEL BAIRD Report Released Date/Time: Jul 19, 2024 04:00 PM Reporting Lab: [address] [address] Performing Lab: [address] [address] PROTIME 14.4 s H 9.4-12.5 INR VALUE 1.3 {INR} Jul 20, 2024 11:18 AM [facility] CBC Specimen Type: BLOOD No comment entered. Ordering Provider: MANUEL BAIRD Report Released Date/Time: Jul 19, 2024 04:00 PM Reporting Lab: [facility] [address] [facility] [address] Performing Lab: [address] [address] WBC 4.7 10*3/uL 3.6-11.2 RBC 4.86 10*6/uL [...] Jun 07, 2024 01:43 PM Reporting Lab: [facility] [address] [facility] [address] Performing Lab: [address] [address] CREATININE 0.85 mg/dL 0.7-1.3 UREA NITROGEN 15.2 [...] PM 97.8 68 122/76 18 96 0 [facility] Aug 15, 2024 03:23 PM 97.7 [facility] Aug 15, 2024 12:19 PM 0 [facility] Aug 15, 2024 10:00 AM 97.8 84 120/72 18 95 0 [facility] Aug 15, 2024 05:35 AM 98.1 80 115/67 20 95 [facility] Advance Directives: All historical and [...] 19, 2017 ADVANCE DIRECTIVE DISCUSSION ERICK BARDALES [facility]
--- OUTSIDE RECORDS SUMMARY | 2024-11-17 04:06 | XMS_ITS | Encounter Summary ---
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 This section includes future appointments and future [...] 24, 2024 10:00 AM AMBULATORY - MEDICINE [facility] Aug 24, 2024 10:30 AM AMBULATORY - MEDICINE [facility] Aug 30, 2024 09:30 AM AMBULATORY MEDICINE [facility] Aug 31, 2024 01:00 PM AMBULATORY - SURGERY [facility] Sep 21, 2024 01:30 PM AMBULATORY MEDICINE [facility] Sep 22, 2024 11:00 AM AMBULATORY - MEDICINE [facility] Sep 29, 2024 12:30 PM AMBULATORY - MEDICINE [facility] Oct 02, 2024 09:30 AM AMBULATORY MEDICINE [facility] Nov 20, 2024 10:30 AM AMBULATORY - SURGERY [facility] Nov 21, 2024 10:00 AM AMBULATORY - NONE [facility] Dec 11, 2024 10:30 [...] of theEncounter. The data comes from all [facility]. Test Date/Time Test Type Test Details Facility Name Aug 02, 2024 12:00 AM Laboratory - Chemistry Order CBC BLOOD STAT SP [facility] Aug 02, 2024 12:00 AM Laboratory - Chemistry Order COMPREHENSIVE METABOLIC PANEL GREEN LI/HEP BLD/PLAS PLASMA SP [facility] Aug 17, 2024 03:47 PM Consult Order [facility] Cons Bedside [facility] [...] 23, 2024 08:21 AM [facility] MAGNESIUM Specimen Type: PLASMA No comment entered. Ordering Provider: SILVIA REDDY Report Released Date/Time: Aug 22, 2024 11:26 AM Reporting Lab: [facility] [address] Performing Lab: [facility] [address] MAGNESIUM 1.8 mg/dL 1.6-2.6 Aug 23, 2024 08:21 AM [facility] CBC Specimen Type: BLOOD No comment entered. Ordering Provider: SILVIA REDDY Report Released Date/Time: Aug 22, 2024 11:19 AM Reporting Lab: [facility] [address] Performing Lab: [facility] [address] WBC 4.0 10*3/uL 3.6-11.2 RBC 3.65 10*6/uL [...] 23, 2024 05:12 AM [facility] GLUCOSE,BLOOD-poct (STL) Specimen Type: BLOOD Comment: Test Performed by: [id number] Meter #: [id number] Ordering Provider: SILVIA REDDY Report Released Date/Time: Aug 23, 2024 05:23 AM Reporting Lab: [facility] [address] Performing Lab: [facility] [address] GLUCOSE,BLOOD- poct (STL) 99 mg/dL 72-99 Aug 23, 2024 02:45 AM [facility] OCCULT BLOOD FIT X1 SCREEN Specimen Type: FECES No comment entered. Ordering Provider: SILVIA REDDY Report Released Date/Time: Aug 22, 2024 11:23 AM Reporting Lab: [address] [address] Performing Lab: [address] [address] OCCULT BLOOD (FIT) #1 OF 1 Negative Negative Aug 22, 2024 07:30 PM [facility] OCCULT BLOOD FIT X1 SCREEN Specimen Type: FECES No comment entered. Ordering Provider: SILVIA REDDY Report Released Date/Time: Aug 22, 2024 11:23 AM Reporting Lab: [address] [address] Performing Lab: [address] [address] OCCULT BLOOD (FIT) #1 OF 1 Negative Negative Aug 22, 2024 06:15 PM [facility] OCCULT BLOOD FIT X1 SCREEN Specimen Type: FECES No comment entered. Ordering Provider: SILVIA REDDY Report Released Date/Time: Aug 22, 2024 11:23 AM Reporting Lab: [facility] [address] [facility] [address] Performing Lab: [address] [address] OCCULT BLOOD (FIT) #1 OF 1 Negative Negative Aug 22, 2024 04:24 PM [facility] GLUCOSE,BLOOD-poct (STL) Specimen Type: BLOOD Comment: Test Performed by: [id number] Meter #: [id number] Ordering Provider: ISLVIA REDDY Report Released Date/Time: Aug 22, 2024 04:36 PM Reporting Lab: [facility] [address] Performing Lab: [facility] [address] GLUCOSE,BLOOD- poct (STL) 176 mg/dL H 72-99 Aug 22, 2024 04:23 PM [facility] GLUCOSE,BLOOD-poct (STL) Specimen Type: BLOOD Comment: Test Performed by: [id number] Meter #: [id number] Ordering Provider: SILVIA REDDY Report Released Date/Time: Aug 22, 2024 04:36 PM Reporting Lab: [facility] [address] Performing Lab: [facility] [address] GLUCOSE,BLOOD- poct (STL) 221 mg/dL H 72-99 Aug 22, 2024 11:15 AM [facility] GLUCOSE,BLOOD-poct (STL) Specimen Type: BLOOD Comment: Test Performed by: [id number] Meter #: [id number] Ordering Provider: SILVIA REDDY Report Released Date/Time: Aug 22, 2024 11:27 AM Reporting Lab: [facility] [address] Performing Lab: [facility] [facility] [address] GLUCOSE,BLOOD- poct (STL) 140 mg/dL H 72-99 Aug 22, 2024 08:03 AM [facility] FERRITIN Specimen Type: SERUM No comment entered. Ordering Provider: JUDIT PERKINS Report Released Date/Time: Aug 18, 2024 11:01 AM Reporting Lab: [facility] [address] [facility] [address] Performing Lab: [address] [address] FERRITIN 79.50 ng/mL 22-275 Aug 22, 2024 08:03 AM [facility] IRON/TIBC PROFILE Specimen Type: SERUM No comment entered. Ordering Provider: JUDTI PERKINS Report Released Date/Time: Aug 18, 2024 11:01 AM Reporting Lab: [facility] [address] [facility] [address] Performing Lab: [facility] [address] [place] [address] TIBC 283 ug/dL 250-450 TRANSFERRIN 226 mg/dL 163-344 IRON SATURATION 7 L 20-50 IRON 19 ug/dL L 65-175 Aug 22, 2024 08:03 AM [facility] B12 Specimen Type: SERUM No comment entered. Ordering Provider: JUDIT PERKINS Report Released Date/Time: Aug 18, 2024 11:01 AM Reporting Lab: [facility] [facility] [address] Performing Lab: [facility] [address] B12 631 pg/mL 213-816 Aug 22, 2024 08:03 AM [facility] COMPREHENSIVE METABOLIC PANEL Specimen Type: PLASMA Comment: No hemolysis noted. Ordering Provider: SILVIA REDDY Report Released Date/Time: Aug 17, 2024 01:18 PM Reporting Lab: [facility] [address] [facility] [address] Performing Lab: [facility] [address] [facility] [address] CREATININE 0.80 mg/dL 0.7-1.3 UREA NITROGEN 9.7 [...] 94.0 >60 Aug 22, 2024 08:03 AM [facility] CBC Specimen Type: BLOOD No comment entered. Ordering Provider: SILVIA REDDY Report Released Date/Time: Aug 17, 2024 01:18 PM Reporting Lab: [facility] [address] Performing Lab: [facility] [address] WBC 3.5 10*3/uL L 3.6-11.2 RBC 3.23 [...] 22, 2024 05:03 AM [facility] GLUCOSE,BLOOD-poct (STL) Specimen Type: BLOOD Comment: Test Performed by: [id number] Meter #: [id number] Ordering Provider: SILVIA REDDY Report Released Date/Time: Aug 22, 2024 06:17 AM Reporting Lab: [facility] [place] [address] Performing Lab: [facility] [place] [address] GLUCOSE,BLOOD- poct (STL) 170 mg/dL H 72-99 Aug 21, 2024 04:32 PM [facility] GLUCOSE,BLOOD-poct (STL) Specimen Type: BLOOD Comment: Test Performed by: [id number] Meter #: [id number] Ordering Provider: SILVIA REDDY Report Released Date/Time: Aug 21, 2024 04:49 PM Reporting Lab: [facility] [place] [address] Performing Lab: [facility] [place] [address] GLUCOSE,BLOOD- poct (STL) 169 mg/dL H 72-99 Aug 21, 2024 11:53 AM [facility] GLUCOSE,BLOOD-poct (STL) Specimen Type: BLOOD Comment: Test Performed by: [id number] Meter #: [id number] Ordering Provider: SILVIA REDDY Report Released Date/Time: Aug 21, 2024 12:11 PM Reporting Lab: [facility] [place] [address] Performing Lab: [facility] [address] GLUCOSE,BLOOD- poct (STL) 149 mg/dL H -Aug 21, 2024 05:10 AM [facility] GLUCOSE,BLOOD-poct (STL) Specimen Type: BLOOD Comment: Test Performed by: [id number] Meter #: [id number] Ordering Provider: SILVIA REDDY Report Released Date/Time: Aug 21, 2024 05:27 AM Reporting Lab: [facility] [address] Performing Lab: [facility] [facility] [address] GLUCOSE,BLOOD- poct (STL) 118 mg/dL H -Aug 20, 2024 04:38 PM [facility] GLUCOSE,BLOOD-poct (STL) Specimen Type: BLOOD Comment: Test Performed by: [id number] Meter #: [id number] Ordering Provider: SILVIA REDDY Report Released Date/Time: Aug 21, 2024 01:55 AM Reporting Lab: [facility] [facility] [address] Performing Lab: [facility] [facility] [address] GLUCOSE,BLOOD- poct (STL) 169 mg/dL H Aug 20, 2024 04:36 PM [facility] GLUCOSE,BLOOD-poct (STL) Specimen Type: BLOOD Comment: Test Performed by: [id number] Meter #: [id number] Ordering Provider: SILVIA REDDY Report Released Date/Time: Aug 21, 2024 01:55 AM Reporting Lab: [facility] [address] Performing Lab: [facility] [facility] [address] GLUCOSE,BLOOD- poct (STL) 395 mg/dL H Aug 20, 2024 11:45 AM [facility] GLUCOSE,BLOOD-poct (STL) Specimen Type: BLOOD Comment: Test Performed by: [id number] Meter #: [id number] Ordering Provider: SILVIA REDDY Report Released Date/Time: Aug 20, 2024 11:56 AM Reporting Lab: [facility] [facility] [address] Performing Lab: [facility] [address] GLUCOSE,BLOOD- poct (STL) 169 mg/dL H 72-Aug 20, 2024 05:06 AM [facility] GLUCOSE,BLOOD-poct (STL) Specimen Type: BLOOD Comment: Test Performed by: [id number] Meter #: [id number] Ordering Provider: SILVIA REDDY Report Released Date/Time: Aug 20, 2024 06:05 AM Reporting Lab: [facility] [address] Performing Lab: [facility] [address] GLUCOSE,BLOOD- poct (STL) 115 mg/dL H -Aug 19, 2024 04:23 PM [facility] GLUCOSE,BLOOD-poct (STL) Specimen Type: BLOOD Comment: Test Performed by: [id number] Meter #: [id number] Ordering Provider: SILVIA REDDY Report Released Date/Time: Aug 19, 2024 05:54 PM Reporting Lab: [facility] [address] Performing Lab: [facility] [address] GLUCOSE,BLOOD- poct (STL) 137 mg/dL H 72-Aug 19, 2024 11:28 AM [facility] GLUCOSE,BLOOD-poct (STL) Specimen Type: BLOOD Comment: Test Performed by: [id number] Meter #: [id number] Ordering Provider: SILVIA REDDY Report Released Date/Time: Aug 19, 2024 11:51 AM Reporting Lab: [facility] [address] Performing Lab: [facility] [address] GLUCOSE,BLOOD- poct (STL) 190 mg/dL H 72-Aug 19, 2024 05:21 AM [facility] GLUCOSE,BLOOD-poct (STL) Specimen Type: BLOOD Comment: Test Performed by: [id number] Meter #: [id number] Ordering Provider: SILVIA REDDY Report Released Date/Time: Aug 19, 2024 05:56 AM Reporting Lab: [facility] [address] Performing Lab: [facility] [address] GLUCOSE,BLOOD- poct (STL) 130 mg/dL H -Aug 18, 2024 04:49 PM [facility] GLUCOSE,BLOOD-poct (STL) Specimen Type: BLOOD Comment: Test Performed by: [id number] Meter #: [id number] Ordering Provider: SILVIA REDDY Report Released Date/Time: Aug 18, 2024 05:01 PM Reporting Lab: [facility] [address] Performing Lab: [facility] [address] GLUCOSE,BLOOD- poct (STL) 129 mg/dL H 72-99 Aug 18, 2024 11:23 AM [facility] GLUCOSE,BLOOD-poct (STL) Specimen Type: BLOOD Comment: Test Performed by: [id number] Meter #: [id number] Ordering Provider: SILVIA REDDY Report Released Date/Time: Aug 18, 2024 11:41 AM Reporting Lab: [facility] [address] Performing Lab: [facility] [address] GLUCOSE,BLOOD- poct (STL) 180 mg/dL H Aug 18, 2024 05:08 AM [facility] GLUCOSE,BLOOD-poct (STL) Specimen Type: BLOOD Comment: Test Performed by: [id number] Meter #: [id number] Ordering Provider: SILVIA REDDY Report Released Date/Time: Aug 18, 2024 05:31 AM Reporting Lab: [facility] [address] Performing Lab: [facility] [address] GLUCOSE,BLOOD- poct (STL) 127 mg/dL H Aug 17, 2024 07:32 PM [facility] GLUCOSE,BLOOD-poct (STL) Specimen Type: BLOOD Comment: Test Performed by: [id number] Meter #: [id number] Ordering Provider: SILVIA REDDY Report Released Date/Time: Aug 17, 2024 07:59 PM Reporting Lab: [facility] [address] Performing Lab: [facility] [address] GLUCOSE,BLOOD- poct (STL) 154 mg/dL H Aug 17, 2024 04:24 PM [facility] GLUCOSE,BLOOD-poct (STL) Specimen Type: BLOOD Comment: Test Performed by: [id number] Meter #: [id number] Ordering Provider: SILVIA REDDY Report Released Date/Time: Aug 17, 2024 04:35 PM Reporting Lab: [facility] [address] Performing Lab: [facility] [address] GLUCOSE,BLOOD- poct (STL) 178 mg/dL H Aug 17, 2024 05:09 AM [facility] GLUCOSE,BLOOD-poct (STL) Specimen Type: BLOOD Comment: Test Performed by: [id number] Meter #: [id number] Ordering Provider: SILVIA REDDY Report Released Date/Time: Aug 17, 2024 05:54 AM Reporting Lab: [facility] [address] Performing Lab: [facility] [address] GLUCOSE,BLOOD- poct (STL) 124 mg/dL H -Aug 16, 2024 07:40 PM [facility] GLUCOSE,BLOOD-poct (STL) Specimen Type: BLOOD Comment: Test Performed by: [id number] Meter #: [id number] Ordering Provider: SILVIA REDDY Report Released Date/Time: Aug 16, 2024 08:28 PM Reporting Lab: [facility] [address] Performing Lab: [facility] [address] GLUCOSE,BLOOD- poct (STL) 144 mg/dL H -Aug 16, 2024 04:19 PM [facility] GLUCOSE,BLOOD-poct (STL) Specimen Type: BLOOD Comment: Test Performed by: [id number] Meter #: [id number] Ordering Provider: SILVIA REDDY Report Released Date/Time: Aug 16, 2024 04:45 PM Reporting Lab: [facility] [address] Performing Lab: [facility] [address] GLUCOSE,BLOOD- poct (STL) 138 mg/dL H -Aug 16, 2024 11:52 AM [facility] GLUCOSE,BLOOD-poct (STL) Specimen Type: BLOOD Comment: Test Performed by: [id number] Meter #: [id number] Ordering Provider: SILVIA REDDY Report Released Date/Time: Aug 16, 2024 12:04 PM Reporting Lab: [facility] [address] Performing Lab: [facility] [address] GLUCOSE,BLOOD- poct (STL) 135 mg/dL H 72-Aug 16, 2024 05:24 AM [facility] GLUCOSE,BLOOD-poct (STL) Specimen Type: BLOOD Comment: Test Performed by: [id number] Meter #: [id number] Ordering Provider: SILVIA REDDY Report Released Date/Time: Aug 16, 2024 05:38 AM Reporting Lab: [facility] [address] Performing Lab: [facility] [address] GLUCOSE,BLOOD- poct (STL) 151 mg/dL H -Aug 15, 2024 07:31 PM [facility] GLUCOSE,BLOOD-poct (STL) Specimen Type: BLOOD Comment: Test Performed by: [id number] Meter #: [id number] Ordering Provider: SILVIA REDDY Report Released Date/Time: Aug 15, 2024 08:07 PM Reporting Lab: [facility] [address] Performing Lab: [facility] [address] GLUCOSE,BLOOD- poct (STL) 173 mg/dL H 72-Aug 15, 2024 04:18 PM [facility] GLUCOSE,BLOOD-poct (STL) Specimen Type: BLOOD Comment: Test Performed by: [id number] Meter #: [id number] Ordering Provider: SILVIA REDDY Report Released Date/Time: Aug 15, 2024 04:59 PM Reporting Lab: [facility] [address] Performing Lab: [facility] [address] GLUCOSE,BLOOD- poct (STL) 136 mg/dL H Aug 15, 2024 04:16 PM [facility] GLUCOSE,BLOOD-poct (STL) Specimen Type: BLOOD Comment: Test Performed by: [id number] Meter #: [id number] Ordering Provider: SILVIA REDDY Report Released Date/Time: Aug 15, 2024 04:59 PM Reporting Lab: [facility] [address] Performing Lab: [facility] [address] GLUCOSE,BLOOD- poct (STL) 194 mg/dL H Aug 15, 2024 11:39 AM [facility] GLUCOSE,BLOOD-poct (STL) Specimen Type: BLOOD Comment: Test Performed by: [id number] Meter #: [id number] Ordering Provider: SILVIA REDDY Report Released Date/Time: Aug 15, 2024 12:00 PM Reporting Lab: [facility] [address] Performing Lab: [facility] [address] GLUCOSE,BLOOD- poct (STL) 127 mg/dL H Aug 15, 2024 05:07 AM [facility] GLUCOSE,BLOOD-poct (STL) Specimen Type: BLOOD Comment: Test Performed by: [id number] Meter #: [id number] Ordering Provider: SILVIA REDDY Report Released Date/Time: Aug 15, 2024 06:14 AM Reporting Lab: [facility] [address] Performing Lab: [facility] [address] GLUCOSE,BLOOD- poct (STL) 151 mg/dL H Aug 14, 2024 04:22 PM [facility] GLUCOSE,BLOOD-poct (STL) Specimen Type: BLOOD Comment: Test Performed by: [id number] Meter #: [id number] Ordering Provider: SILVIA REDDY Report Released Date/Time: Aug 14, 2024 04:52 PM Reporting Lab: [facility] [address] Performing Lab: [facility] [address] GLUCOSE,BLOOD- poct (STL) 129 mg/dL H 72-Aug 14, 2024 11:21 AM [facility] GLUCOSE,BLOOD-poct (STL) Specimen Type: BLOOD Comment: Test Performed by: [id number] Meter #: [id number] Ordering Provider: SILVIA REDDY Report Released Date/Time: Aug 14, 2024 11:37 AM Reporting Lab: [facility] [address] Performing Lab: [facility] [address] GLUCOSE,BLOOD- poct (STL) 135 mg/dL H 72-Aug 14, 2024 06:59 AM [facility] QUANTIFERON-TB,4 TUBE Specimen Type: BLOOD Comment: [...] For additional information, please refer to http://education. [employer]. JibJab/faq/VPX185 (This link is being provided for information/ educational purposes only.) Test Performed by [place], [employer] [facility], [address] [place], [place] Tommie Garcia M.D., Ph.D., Director of Laboratories , [facility] [id number] Ordering Provider: SILVIA REDDY Report Released Date/Time: Aug 11, 2024 03:58 PM Reporting Lab: [facility] [address] [facility] [address] Performing Lab: [facility] [address] [facility] .NIL - QUANTIFERON 0.04 [IU]/mL .MITOGEN-NIL 0.39 [IU]/mL .QUANTIFERON INDETERMINATE NEGATIVE .TB1-NIL <0.00 [IU]/mL .TB2-NIL <0.00 [IU]/mL Aug 14, 2024 06:59 AM [facility] MAGNESIUM Specimen Type: PLASMA Comment: No hemolysis noted. Ordering Provider: SILVIA REDDY Report Released Date/Time: Aug 11, 2024 03:58 PM Reporting Lab: [facility] [id number] Performing Lab: [facility] [id number] MAGNESIUM 1.9 mg/dL 1.6-2.6 Aug 14, 2024 06:59 AM [facility] B12 Specimen Type: SERUM No comment entered. Ordering Provider: SILVIA REDDY Report Released Date/Time: Aug 11, 2024 03:58 PM Reporting Lab: [facility] [phone] Performing Lab: [facility] [place] [id number] B12 757 pg/mL 213-816 Aug 14, 2024 06:59 AM [facility] VITAMIN D, 25-HYDROXY Specimen Type: SERUM No comment entered. Ordering Provider: SILVIA REDDY Report Released Date/Time: Aug 11, 2024 03:58 PM Reporting Lab: [facility] [id number] Performing Lab: [facility] #[facility] [place] [phone] VITAMIN D, 25-HYDROXY 8.9 ng/mL L 30-96 Aug 14, 2024 06:59 AM [facility] FOLATE ([facility]) Specimen Type: SERUM No comment entered. Ordering Provider: SILVIA REDDY Report Released Date/Time: Aug 11, 2024 03:58 PM Reporting Lab: [facility] [place] [phone] Performing Lab: [facility] #[facility] [place] [phone] FOLATE (L-[place]) 6.8 ng/mL L 7-20 Aug 14, 2024 06:59 AM [facility] CBC Specimen Type: BLOOD No comment entered. Ordering Provider: SILVIA REDDY Report Released Date/Time: Aug 11, 2024 03:58 PM Reporting Lab: [facility] #[facility] [place] [phone] Performing Lab: [facility] [place] [phone] WBC 4.1 10*3/uL 3.6-11.2 RBC 3.20 10*6/uL [...] 10*3/uL 0.00-0.20 Aug 14, 2024 06:59 AM [facility] COMPREHENSIVE METABOLIC PANEL Specimen Type: PLASMA Comment: No hemolysis noted. Ordering Provider: SILVIA REDDY Report Released Date/Time: Aug 11, 2024 03:58 PM Reporting Lab: [facility] [phone] Performing Lab: [facility] [place] [id number] CREATININE 0.75 mg/dL 0.70-1.30 UREA NITROGEN 13.6 [...] 95.88 >60 Aug 14, 2024 05:08 AM [facility] GLUCOSE,BLOOD-poct (STL) Specimen Type: BLOOD Comment: Test Performed by: [id number] Meter #: [id number] Ordering Provider: SILVIA REDDY Report Released Date/Time: Aug 14, 2024 05:52 AM Reporting Lab: [facility] [phone] Performing Lab: [facility] [address] GLUCOSE,BLOOD- poct (STL) 135 mg/dL H 72-Aug 13, 2024 04:27 PM [facility] GLUCOSE,BLOOD-poct (STL) Specimen Type: BLOOD Comment: Test Performed by: [id number] Meter #: [id number] Ordering Provider: SILVIA REDDY Report Released Date/Time: Aug 13, 2024 04:41 PM Reporting Lab: [facility] [address] Performing Lab: [facility] [address] GLUCOSE,BLOOD- poct (STL) 181 mg/dL H Aug 13, 2024 11:33 AM [facility] GLUCOSE,BLOOD-poct (STL) Specimen Type: BLOOD Comment: Test Performed by: [id number] Meter #: [id number] Ordering Provider: SILVIA REDDY Report Released Date/Time: Aug 13, 2024 03:55 PM Reporting Lab: [facility] [address] Performing Lab: [facility] [address] GLUCOSE,BLOOD- poct (STL) 140 mg/dL H Aug 13, 2024 05:54 AM [facility] GLUCOSE,BLOOD-poct (STL) Specimen Type: BLOOD Comment: Test Performed by: [id number] Meter #: [id number] Ordering Provider: SILVIA REDDY Report Released Date/Time: Aug 13, 2024 06:20 AM Reporting Lab: [facility] [phone] Performing Lab: [facility] [address] GLUCOSE,BLOOD- poct (STL) 112 mg/dL H -Aug 12, 2024 04:35 PM [facility] GLUCOSE,BLOOD-poct (STL) Specimen Type: BLOOD Comment: Test Performed by: [id number] Meter #: [id number] Ordering Provider: SILVIA REDDY Report Released Date/Time: Aug 12, 2024 04:47 PM Reporting Lab: [facility] [address] Performing Lab: [facility] [address] GLUCOSE,BLOOD- poct (STL) 128 mg/dL H -Aug 12, 2024 11:26 AM [facility] GLUCOSE,BLOOD-poct (STL) Specimen Type: BLOOD Comment: Test Performed by: [id number] Meter #: [id number] Ordering Provider: SILVIA REDDY Report Released Date/Time: Aug 12, 2024 11:45 AM Reporting Lab: [facility] [address] Performing Lab: [facility] [address] GLUCOSE,BLOOD- poct (STL) 188 mg/dL H -Aug 12, 2024 06:13 AM [facility] GLUCOSE,BLOOD-poct (STL) Specimen Type: BLOOD Comment: Test Performed by: [id number] Meter #: [id number] Ordering Provider: SILVIA REDDY Report Released Date/Time: Aug 12, 2024 06:25 AM Reporting Lab: [facility] [address] Performing Lab: [facility] [address] GLUCOSE,BLOOD- poct (STL) 116 mg/dL H -Aug 11, 2024 04:10 PM [facility] GLUCOSE,BLOOD-poct (STL) Specimen Type: BLOOD Comment: Test Performed by: [id number] Meter #: [id number] Ordering Provider: SILVIA REDDY Report Released Date/Time: Aug 11, 2024 04:27 PM Reporting Lab: [facility] [address] Performing Lab: [facility] [address] GLUCOSE,BLOOD- poct (STL) 184 mg/dL H 72-99 Aug 11, 2024 01:44 PM [facility] MRSA SURVL NARES DNA Specimen [...] Aug 11, 2024 02:03 PM Reporting Lab: [facility] [address] [place] [phone] Performing Lab: [facility] [address] [place] [address] MRSA SURVL NARES DNA Negative Negative Jul 20, 2024 11:18 AM [facility] APTT Specimen Type: PLASMA No comment entered. Ordering Provider: MANUEL BAIRD Report Released Date/Time: Jul 19, 2024 04:00 PM Reporting Lab: [facility] [address] [place] [phone] Performing Lab: [facility] [address] [place] [phone] APTT 32.1 s 26.7-39.9 Jul 20, 2024 11:18 AM [facility] PT/INR NEW (STL-MA) Specimen Type: PLASMA No comment entered. Ordering Provider: MANUEL BAIRD Report Released Date/Time: Jul 19, 2024 04:00 PM Reporting Lab: [facility] [address] [facility] [address] Performing Lab: [facility] [address] [facility] [address] PROTIME 14.4 s H 9.4-12.5 INR VALUE 1.3 {INR} Jul 20, 2024 11:18 AM [facility] CBC Specimen Type: BLOOD No comment entered. Ordering Provider: MANUEL BAIRD Report Released Date/Time: Jul 19, 2024 04:00 PM Reporting Lab: [place] [address] [facility] [address] Performing Lab: [address] [address] WBC 4.7 10*3/uL 3.6-11.2 RBC 4.86 10*6/uL [...] 2024 01:43 PM Reporting Lab: [facility] [address] [facility] [address] Performing Lab: [facility] [address] [facility] [address] CREATININE 0.85 mg/dL 0.7-1.3 UREA NITROGEN 15.2 [...] PM 97.8 68 122/76 18 96 0 [facility] Aug 15, 2024 03:23 PM 97.7 [facility] Aug 15, 2024 12:19 PM 0 [facility] Aug 15, 2024 10:00 AM 97.8 84 120/72 18 95 0 [facility] Aug 15, 2024 05:35 AM 98.1 80 115/67 20 95 [facility] Advance Directives: All [...] ADVANCE DIRECTIVE DISCUSSION ERICK BARDALES [facility] Encounter Notes: All associated encounter notes This section contains the clinical notes associated to the Encounter. Date/Time Encounter Note(s) Provider Source Aug 15, 2024 11:24 AM PHYSICAL MEDICINE REHAB NOTE: LOCAL TITLE: PT DAILY STL STANDARD TITLE: PHYSICAL MEDICINE REHAB NOTE DATE OF NOTE: AUG 15, 2024@11:24 ENTRY DATE: AUG 15, 2024@:24:04 AUTHOR: GERRY CONRADIGNER: URGENCY: STATUS: COMPLETED PHYSICAL THERAPY: daily TX note TIME: 1030 TOTAL TREATMENT TIME: 35 minutes BILLING: ther-act x 1, gait x 1 Visit #:2 Missed:0 Eval Date: 08/14/2024 Progress Note Due: [...] and subtotal occlusion of RCA), transferred to [facility] and underwent CABG x3 on07/24. Has known [...] referred for further PT and OT at [facility]. Interval history Patient is seen post [...] at home. PMH: 1) Asthma (SNOMED CT 288341678) 2) Gastro-esophageal reflux disease (SNOMED CT 309524987) 3) Peptic Ulcer Disease * (ICD-9-CM 533.90) 4) Hypertension (SNOMED CT 03866984) 5) Neoplasm of pituitary gland (SNOMED CT 898814325) 6) Hyperlipidemia (SNOMED CT 97810907) 7) Erectile dysfunction associated with type 2 [...] 21) Obstructive Sleep Apnea of Adult (SCT 4382012695029) Equipment Owned: Cane, F22 S: Vet handed off from OT, agreeable to PT TX. Pain: None throughout --Patient goal(s): Pt reports to walk Learning preferences: [x] Verbal, [x] Visual/Demonstration, [] Written O: GAIT TRAIN: - 2WW trialed due to neuropathy and instability during eval. Vet requires min/mod A for balance x 40' with WW due to frequent/near constant loss of balance and postural instability. - F22 40', 100' with rest break between. CGA provided for safety due to fall risk, cues to improve heel strike and to ensure sternal precautions are maintained. TRANSFER TRAIN: -Education on importance of proper form/sequencing of sit<>stands due to neuropathy, frequent LOB and stepping response noted, fall precautions and risk with sternal precautions. Vet is resistive to practice at first but is agreeable with cont. supportive listening and education. -Sit<>stand train: blocked practice from mat table completed, PT provides verbal and demo instruction on set-up, sequencing and how to maintain sternal precautions. Vet reports can I show you want I do at home? PT allows to demo sit<>stand at PLOF as long as he maintains sternal precautions. Vet places BUEs on F22 and rocks/pulls up to standing. Vet does have wide stance and steps out of LLE 2/2 LOB. PT provides feedback on safety concerns and need for activity modification to maximize safety and decrease fall risk. Vet agreeable. 5 reps of sit<>stands completed with improving function after PT cues provided. Overall SPV/CGA for safety and intermittent steadying provided. -Pivot xfer with F22, cues for slow/controlled speed, proper placement of UEs and sequencing. Vet has poor eccentric lowering noted into xfer surfaces. NUSTEP: -Program 3 (hills) L2 x 10 minutes using BLEs for endurance training, 75 steps per minute. Vet left up in chair in room, all personal items in reach, no current needs. Educated to use call light to ask for assistance prior to xfer elsewhere in room. Inpatient Rehab Facility Patient Assessment Instrument ([id number]): [...] 4 6 Sit to stand: 4 6 Chair/obl-sl-eulfd transf: 4 6 Toilet transfer: Car transfer: [...] EDUCATION Comprehensive TREATMENT/EDUCATION provided during this stay: verbalized understanding of education/instructions. Somewhat resistive at times [place] given 1:1 instruction on: 's goals PT plan of care rationale of PT unit mobility recommendations Equip use/care Exercise program - seated [place] use of DME- F22 is used for walking only, not as wheelchair, do not walk with use of F22 folded, use F22 only for mobility, not cane or without device A: Vet tolerates session well, target RPE met. Vet is resistive and argumentative when provided feedback on safety concerns and activity modifications. Cont. education and support needed to ensure learning. Vet does demonstrate improving safety with xfers within session. Cont. skilled TX needed. GOALS SHORT TERM GOALS (1 weeks): -Vet will be SPV with bed mobility -Vet will be SPV with bed <> chair transfers -Vet will ambulate 50' with walker and SPV -Vet will ascend/descend 4 steps with B HR and Min A DETENTION GOALS (2 weeks): -Vet will be INDEP [...] walker __F-22 __manual wheelchair __straight cane __ramp /es/ GERRY CONRAD PT, DPT, CBIS Signed: 08/15/2024 11:36 GERRY CONRAD [facility]
--- OUTSIDE RECORDS SUMMARY | 2024-11-17 04:07 | XMS_ITS ---
[place] DAILY HOSPITALIZATION DATA [facility] Encounter Summary Created on: November 16, 2024 CHET WALKER : 1950 Sex: Male Author Name [facility] Address [address] [place] [address] Care Team Providers Care Oil Sprayer Name Role Phone MANUEL BAIRD Primary Care [...] PART A Apr 08, 2017 PART A [id number] ASHLEY WALKER PATIENT Selected Encounter This section includes the information on record at NH for the Encounter. Date/Time Encounter Type Encounter Description Reason Pro vider Source Aug 21, 2024 09:43 AM Inpatient Visit DAILY HOSPITALIZATION DATA [facility] Encounter Template Text not used by NH [...] 24, 2024 10:00 AM AMBULATORY - MEDICINE [facility] Aug 24, 2024 10:30 AM AMBULATORY - MEDICINE [facility] Aug 30, 2024 09:30 AM AMBULATORY MEDICINE [facility] Aug 31, 2024 01:00 PM AMBULATORY - SURGERY [facility] Sep 21, 2024 01:30 PM AMBULATORY - MEDICINE [facility] Sep 22, 2024 11:00 AM AMBULATORY - MEDICINE [facility] Sep 29, 2024 12:30 PM AMBULATORY - MEDICINE [facility] Oct 02, 2024 09:30 AM AMBULATORY - MEDICINE [facility] Nov 20, 2024 10:30 AM AMBULATORY - SURGERY [facility] Nov 21, 2024 10:00 AM AMBULATORY - NONE [facility] Dec 11, 2024 10:30 AM AMBULATORY - MEDICINE [facility] Active, Pending, and Scheduled Orders This section includes a listing of several types of active, pending, and scheduled orders, including clinic medications orders, diagnostic test orders, procedure orders and consult orders; where the start date of the order is 45 days before the date of the Encounter or 45 days after the date of theEncounter. The data comes from all [facility]. Test Date/Time Test Type Test Details Facility Name Aug 02, 2024 12:00 AM Laboratory - Chemistry Order CBC BLOOD STAT SP [facility] Aug 02, 2024 12:00 AM Laboratory - Chemistry Order COMPREHENSIVE METABOLIC PANEL GREEN LI/HEP BLD/PLAS PLASMA SP [facility] Aug 17, 2024 03:47 PM Consult Order [facility] Cons Bedside [facility] Lab Results: +/- 30 days of the [...] Range Comment Aug 23, 2024 08:21 AM [facility] MAGNESIUM Specimen Type: PLASMA No comment entered. Ordering Provider: SILVIA REDDY Report Released Date/Time: Aug 22, 2024 11:26 AM Reporting Lab: [facility] [address] Performing Lab: [facility] [address] MAGNESIUM 1.8 mg/dL 1.6-2.6 Aug 23, 2024 08:21 AM [facility] CBC Specimen Type: BLOOD No comment entered. Ordering Provider: SILVIA REDDY Report Released Date/Time: Aug 22, 2024 11:19 AM Reporting Lab: [facility] [address] Performing Lab: [facility] [address] WBC 4.0 10*3/uL 3.6-11.2 RBC 3.65 10*6/uL [...] 10*3/uL 0.00-0.20 Aug 23, 2024 05:12 AM [facility] GLUCOSE,BLOOD-poct (STL) Specimen Type: BLOOD Comment: Test Performed by: [id number] Meter #: [id number] Ordering Provider: SILVIA REDDY Report Released Date/Time: Aug 23, 2024 05:23 AM Reporting Lab: [facility] [address] Performing Lab: [facility] [address] GLUCOSE,BLOOD- poct (STL) 99 mg/dL 72-99 Aug 23, 2024 02:45 AM [facility] OCCULT BLOOD FIT X1 SCREEN Specimen Type: FECES No comment entered. Ordering Provider: SILVIA REDDY Report Released Date/Time: Aug 22, 2024 11:23 AM Reporting Lab: [address] [address] Performing Lab: [address] [address] OCCULT BLOOD (FIT) #1 OF 1 Negative Negative Aug 22, 2024 07:30 PM [facility] OCCULT BLOOD FIT X1 SCREEN Specimen Type: FECES No comment entered. Ordering Provider: SILVIA REDDY Report Released Date/Time: Aug 22, 2024 11:23 AM Reporting Lab: [address] [address] Performing Lab: [address] [address] OCCULT BLOOD (FIT) #1 OF 1 Negative Negative Aug 22, 2024 06:15 PM [facility] OCCULT BLOOD FIT X1 SCREEN Specimen Type: FECES No comment entered. Ordering Provider: SILVIA REDDY Report Released Date/Time: Aug 22, 2024 11:23 AM Reporting Lab: [address] [address] Performing Lab: [facility] [address] [facility] [address] OCCULT BLOOD (FIT) #1 OF 1 Negative Negative Aug 22, 2024 04:24 PM [facility] GLUCOSE,BLOOD-poct (STL) Specimen Type: BLOOD Comment: Test Performed by: [id number] Meter #: [id number] Ordering Provider: SILVIA REDDY Report Released Date/Time: Aug 22, 2024 04:36 PM Reporting Lab: [facility] [address] Performing Lab: [facility] #[facility] [address] GLUCOSE,BLOOD- poct (STL) 176 mg/dL H -Aug 22, 2024 04:23 PM [facility] GLUCOSE,BLOOD-poct (STL) Specimen Type: BLOOD Comment: Test Performed by: [id number] Meter #: [id number] Ordering Provider: SILVIA REDDY Report Released Date/Time: Aug 22, 2024 04:36 PM Reporting Lab: [facility] [address] Performing Lab: [facility] [address] GLUCOSE,BLOOD- poct (STL) 221 mg/dL H 72-Aug 22, 2024 11:15 AM [facility] GLUCOSE,BLOOD-poct (STL) Specimen Type: BLOOD Comment: Test Performed by: [id number] Meter #: [id number] Ordering Provider: SILVIA REDDY Report Released Date/Time: Aug 22, 2024 11:27 AM Reporting Lab: [facility] [address] Performing Lab: [facility] [address] GLUCOSE,BLOOD- poct (STL) 140 mg/dL H 72-Aug 22, 2024 08:03 AM [facility] FERRITIN Specimen Type: SERUM No comment entered. Ordering Provider: JUDIT PERKINS Report Released Date/Time: Aug 18, 2024 11:01 AM Reporting Lab: [facility] [address] [facility] [address] Performing Lab: [facility] [address] [facility] [address] FERRITIN 79.50 ng/mL 22-275 Aug 22, 2024 08:03 AM [facility] IRON/TIBC PROFILE Specimen Type: SERUM No comment entered. Ordering Provider: JUDIT PERKINS Report Released Date/Time: Aug 18, 2024 11:01 AM Reporting Lab: [address] [address] Performing Lab: [address] [address] TIBC 283 ug/dL 250-450 TRANSFERRIN 226 mg/dL 163-344 IRON SATURATION 7 L 20-50 IRON 19 ug/dL L 65-175 Aug 22, 2024 08:03 AM [facility] B12 Specimen Type: SERUM No comment entered. Ordering Provider: JUDIT PERKINS Report Released Date/Time: Aug 18, 2024 11:01 AM Reporting Lab: [facility] [address] Performing Lab: [facility] #[address] [facility] [address] B12 631 pg/mL 213-816 Aug 22, 2024 08:03 AM [facility] COMPREHENSIVE METABOLIC PANEL Specimen Type: PLASMA Comment: No hemolysis noted. Ordering Provider: SILVIA REDDY Report Released Date/Time: Aug 17, 2024 01:18 PM Reporting Lab: [facility] [address] [facility] [address] Performing Lab: [address] [address] CREATININE 0.80 mg/dL 0.7-1.3 UREA NITROGEN 9.7 [...] 94.0 >60 Aug 22, 2024 08:03 AM [facility] CBC Specimen Type: BLOOD No comment entered. Ordering Provider: SILVIA REDDY Report Released Date/Time: Aug 17, 2024 01:18 PM Reporting Lab: [facility] [address] Performing Lab: [facility] [address] WBC 3.5 10*3/uL L 3.6-11.2 RBC 3.23 [...] NRBC% 0 Aug 22, 2024 05:03 AM [facility] GLUCOSE,BLOOD-poct (STL) Specimen Type: BLOOD Comment: Test Performed by: [id number] Meter #: [id number] Ordering Provider: SILVIA REDDY Report Released Date/Time: Aug 22, 2024 06:17 AM Reporting Lab: [facility] [address] Performing Lab: [facility] #[address] [facility] [address] GLUCOSE,BLOOD- poct (STL) 170 mg/dL H 72-Aug 21, 2024 04:32 PM [facility] GLUCOSE,BLOOD-poct (STL) Specimen Type: BLOOD Comment: Test Performed by: [id number] Meter #: [id number] Ordering Provider: SILVIA REDDY Report Released Date/Time: Aug 21, 2024 04:49 PM Reporting Lab: [facility] [address] Performing Lab: [facility] [address] GLUCOSE,BLOOD- poct (STL) 169 mg/dL H -99 Aug 21, 2024 11:53 AM [facility] GLUCOSE,BLOOD-poct (STL) Specimen Type: BLOOD Comment: Test Performed by: [id number] Meter #: [id number] Ordering Provider: SILVIA REDDY Report Released Date/Time: Aug 21, 2024 12:11 PM Reporting Lab: [facility] #[address] [facility] [address] Performing Lab: [facility] [address] GLUCOSE,BLOOD- poct (STL) 149 mg/dL H 72-99 Aug 21, 2024 05:10 AM [facility] GLUCOSE,BLOOD-poct (STL) Specimen Type: BLOOD Comment: Test Performed by: [id number] Meter #: [id number] Ordering Provider: SILVIA REDDY Report Released Date/Time: Aug 21, 2024 05:27 AM Reporting Lab: [facility] [place] [address] Performing Lab: [facility] #[address] [place] [phone] GLUCOSE,BLOOD- poct (STL) 118 mg/dL H 72-99 Aug 20, 2024 04:38 PM [facility] GLUCOSE,BLOOD-poct (STL) Specimen Type: BLOOD Comment: Test Performed by: [id number] Meter #: [id number] Ordering Provider: SILVIA REDDY Report Released Date/Time: Aug 21, 2024 01:55 AM Reporting Lab: [facility] #[address] [place] [address] Performing Lab: [facility] #[address] [place] [address] GLUCOSE,BLOOD- poct (STL) 169 mg/dL H 72-Aug 20, 2024 04:36 PM [facility] GLUCOSE,BLOOD-poct (STL) Specimen Type: BLOOD Comment: Test Performed by: [id number] Meter #: [id number] Ordering Provider: SILVIA REDDY Report Released Date/Time: Aug 21, 2024 01:55 AM Reporting Lab: [facility] [place] [address] Performing Lab: [facility] [place] [address] GLUCOSE,BLOOD- poct (STL) 395 mg/dL H 72-99 Aug 20, 2024 11:45 AM [facility] GLUCOSE,BLOOD-poct (STL) Specimen Type: BLOOD Comment: Test Performed by: [id number] Meter #: [id number] Ordering Provider: SILVIA REDDY Report Released Date/Time: Aug 20, 2024 11:56 AM Reporting Lab: [facility] [address] Performing Lab: [facility] [address] GLUCOSE,BLOOD- poct (STL) 169 mg/dL H 72-Aug 20, 2024 05:06 AM [facility] GLUCOSE,BLOOD-poct (STL) Specimen Type: BLOOD Comment: Test Performed by: [id number] Meter #: [id number] Ordering Provider: SILVIA REDDY Report Released Date/Time: Aug 20, 2024 06:05 AM Reporting Lab: [facility] [address] Performing Lab: [facility] [address] GLUCOSE,BLOOD- poct (STL) 115 mg/dL H 72-Aug 19, 2024 04:23 PM [facility] GLUCOSE,BLOOD-poct (STL) Specimen Type: BLOOD Comment: Test Performed by: [id number] Meter #: [id number] Ordering Provider: SILVIA REDDY Report Released Date/Time: Aug 19, 2024 05:54 PM Reporting Lab: [facility] [facility] [address] Performing Lab: [facility] [address] GLUCOSE,BLOOD- poct (STL) 137 mg/dL H 72-99 Aug 19, 2024 11:28 AM [facility] GLUCOSE,BLOOD-poct (STL) Specimen Type: BLOOD Comment: Test Performed by: [id number] Meter #: [id number] Ordering Provider: SILVIA REDDY Report Released Date/Time: Aug 19, 2024 11:51 AM Reporting Lab: [facility] [address] Performing Lab: [facility] [address] GLUCOSE,BLOOD- poct (STL) 190 mg/dL H 72-99 Aug 19, 2024 05:21 AM [facility] GLUCOSE,BLOOD-poct (STL) Specimen Type: BLOOD Comment: Test Performed by: [id number] Meter #: [id number] Ordering Provider: SILVIA REDDY Report Released Date/Time: Aug 19, 2024 05:56 AM Reporting Lab: [facility] [address] Performing Lab: [facility] [address] GLUCOSE,BLOOD- poct (STL) 130 mg/dL H Aug 18, 2024 04:49 PM [facility] GLUCOSE,BLOOD-poct (STL) Specimen Type: BLOOD Comment: Test Performed by: [id number] Meter #: [id number] Ordering Provider: SILVIA REDDY Report Released Date/Time: Aug 18, 2024 05:01 PM Reporting Lab: [facility] [address] Performing Lab: [facility] [address] GLUCOSE,BLOOD- poct (STL) 129 mg/dL H Aug 18, 2024 11:23 AM [facility] GLUCOSE,BLOOD-poct (STL) Specimen Type: BLOOD Comment: Test Performed by: [id number] Meter #: [id number] Ordering Provider: SILVIA REDDY Report Released Date/Time: Aug 18, 2024 11:41 AM Reporting Lab: [facility] [address] Performing Lab: [facility] [address] GLUCOSE,BLOOD- poct (STL) 180 mg/dL H Aug 18, 2024 05:08 AM [facility] GLUCOSE,BLOOD-poct (STL) Specimen Type: BLOOD Comment: Test Performed by: [id number] Meter #: [id number] Ordering Provider: SILVIA REDDY Report Released Date/Time: Aug 18, 2024 05:31 AM Reporting Lab: [facility] [place] [address] Performing Lab: [facility] [address] GLUCOSE,BLOOD- poct (STL) 127 mg/dL H -Aug 17, 2024 07:32 PM [facility] GLUCOSE,BLOOD-poct (STL) Specimen Type: BLOOD Comment: Test Performed by: [id number] Meter #: [id number] Ordering Provider: SILVIA REDDY Report Released Date/Time: Aug 17, 2024 07:59 PM Reporting Lab: [facility] [place] [address] Performing Lab: [facility] [place] [address] GLUCOSE,BLOOD- poct (STL) 154 mg/dL H -Aug 17, 2024 04:24 PM [facility] GLUCOSE,BLOOD-poct (STL) Specimen Type: BLOOD Comment: Test Performed by: [id number] Meter #: [id number] Ordering Provider: SILVIA REDDY Report Released Date/Time: Aug 17, 2024 04:35 PM Reporting Lab: [facility] [place] [address] Performing Lab: [facility] [place] [address] GLUCOSE,BLOOD- poct (STL) 178 mg/dL H -Aug 17, 2024 05:09 AM [facility] GLUCOSE,BLOOD-poct (STL) Specimen Type: BLOOD Comment: Test Performed by: [id number] Meter #: [id number] Ordering Provider: SILVIA REDDY Report Released Date/Time: Aug 17, 2024 05:54 AM Reporting Lab: [facility] [address] Performing Lab: [facility] [address] GLUCOSE,BLOOD- poct (STL) 124 mg/dL H 72-Aug 16, 2024 07:40 PM [facility] GLUCOSE,BLOOD-poct (STL) Specimen Type: BLOOD Comment: Test Performed by: [id number] Meter #: [id number] Ordering Provider: SILVIA REDDY Report Released Date/Time: Aug 16, 2024 08:28 PM Reporting Lab: [facility] [address] Performing Lab: [facility] [address] GLUCOSE,BLOOD- poct (STL) 144 mg/dL H -Aug 16, 2024 04:19 PM [facility] GLUCOSE,BLOOD-poct (STL) Specimen Type: BLOOD Comment: Test Performed by: [id number] Meter #: [id number] Ordering Provider: SILVIA REDDY Report Released Date/Time: Aug 16, 2024 04:45 PM Reporting Lab: [facility] [address] Performing Lab: [facility] [address] GLUCOSE,BLOOD- poct (STL) 138 mg/dL H 72-Aug 16, 2024 11:52 AM [facility] GLUCOSE,BLOOD-poct (STL) Specimen Type: BLOOD Comment: Test Performed by: [id number] Meter #: [id number] Ordering Provider: SILVIA REDDY Report Released Date/Time: Aug 16, 2024 12:04 PM Reporting Lab: [facility] [address] Performing Lab: [facility] [address] GLUCOSE,BLOOD- poct (STL) 135 mg/dL H 72-99 Aug 16, 2024 05:24 AM [facility] GLUCOSE,BLOOD-poct (STL) Specimen Type: BLOOD Comment: Test Performed by: [id number] Meter #: [id number] Ordering Provider: SILVIA REDDY Report Released Date/Time: Aug 16, 2024 05:38 AM Reporting Lab: [facility] [address] Performing Lab: [facility] [address] GLUCOSE,BLOOD- poct (STL) 151 mg/dL H Aug 15, 2024 07:31 PM [facility] GLUCOSE,BLOOD-poct (STL) Specimen Type: BLOOD Comment: Test Performed by: [id number] Meter #: [id number] Ordering Provider: SILVIA REDDY Report Released Date/Time: Aug 15, 2024 08:07 PM Reporting Lab: [facility] [address] Performing Lab: [facility] [address] GLUCOSE,BLOOD- poct (STL) 173 mg/dL H Aug 15, 2024 04:18 PM [facility] GLUCOSE,BLOOD-poct (STL) Specimen Type: BLOOD Comment: Test Performed by: [id number] Meter #: [id number] Ordering Provider: SILVIA REDDY Report Released Date/Time: Aug 15, 2024 04:59 PM Reporting Lab: [facility] [address] Performing Lab: [facility] [address] GLUCOSE,BLOOD- poct (STL) 136 mg/dL H Aug 15, 2024 04:16 PM [facility] GLUCOSE,BLOOD-poct (STL) Specimen Type: BLOOD Comment: Test Performed by: [id number] Meter #: [id number] Ordering Provider: SILVIA REDDY Report Released Date/Time: Aug 15, 2024 04:59 PM Reporting Lab: [facility] [place] [address] Performing Lab: [facility] [address] GLUCOSE,BLOOD- poct (STL) 194 mg/dL H 72-Aug 15, 2024 11:39 AM [facility] GLUCOSE,BLOOD-poct (STL) Specimen Type: BLOOD Comment: Test Performed by: [id number] Meter #: [id number] Ordering Provider: SILVIA REDDY Report Released Date/Time: Aug 15, 2024 12:00 PM Reporting Lab: [facility] [place] [address] Performing Lab: [facility] [place] [address] GLUCOSE,BLOOD- poct (STL) 127 mg/dL H -Aug 15, 2024 05:07 AM [facility] GLUCOSE,BLOOD-poct (STL) Specimen Type: BLOOD Comment: Test Performed by: [id number] Meter #: [id number] Ordering Provider: SILVIA REDDY Report Released Date/Time: Aug 15, 2024 06:14 AM Reporting Lab: [facility] [place] [address] Performing Lab: [facility] [place] [address] GLUCOSE,BLOOD- poct (STL) 151 mg/dL H -Aug 14, 2024 04:22 PM [facility] GLUCOSE,BLOOD-poct (STL) Specimen Type: BLOOD Comment: Test Performed by: [id number] Meter #: [id number] Ordering Provider: SILVIA REDDY Report Released Date/Time: Aug 14, 2024 04:52 PM Reporting Lab: [facility] [address] Performing Lab: [facility] [address] GLUCOSE,BLOOD- poct (STL) 129 mg/dL H 72-99 Aug 14, 2024 11:21 AM [facility] GLUCOSE,BLOOD-poct (STL) Specimen Type: BLOOD Comment: Test Performed by: [id number] Meter #: [id number] Ordering Provider: SILVIA REDDY Report Released Date/Time: Aug 14, 2024 11:37 AM Reporting Lab: [facility] [address] Performing Lab: [facility] [address] GLUCOSE,BLOOD- poct (STL) 135 mg/dL H 72-Aug 14, 2024 06:59 AM [facility] QUANTIFERON-TB,4 TUBE Specimen Type: BLOOD Comment: [...] For additional information, please refer to http://education. LRN/faq/SDV637 (This link is being provided for information/ educational purposes only.) Test Performed by [employer], [employer] [facility], [address] [place] [address] Tommie Garcia M.D., Ph.D., Director of Laboratories , [facility] [id number] Ordering Provider: SILVIA REDDY Report Released Date/Time: Aug 11, 2024 03:58 PM Reporting Lab: [facility] [address] [facility] [address] Performing Lab: [facility] [id number] [place] [address] .NIL - QUANTIFERON 0.04 [IU]/mL .MITOGEN-NIL 0.39 [IU]/mL .QUANTIFERON INDETERMINATE NEGATIVE .TB1-NIL <0.00 [IU]/mL .TB2-NIL <0.00 [IU]/mL Aug 14, 2024 06:59 AM [facility] MAGNESIUM Specimen Type: PLASMA Comment: No hemolysis noted. Ordering Provider: SILVIA REDDY Report Released Date/Time: Aug 11, 2024 03:58 PM Reporting Lab: [facility] [place] [phone] Performing Lab: [facility] [address] MAGNESIUM 1.9 mg/dL 1.6-2.6 Aug 14, 2024 06:59 AM [facility] B12 Specimen Type: SERUM No comment entered. Ordering Provider: SILVIA REDDY Report Released Date/Time: Aug 11, 2024 03:58 PM Reporting Lab: [facility] [address] Performing Lab: [facility] [address] B12 757 pg/mL 213-816 Aug 14, 2024 06:59 AM [facility] FOLATE (STL-MA) Specimen Type: SERUM No comment entered. Ordering Provider: SILVIA REDDY Report Released Date/Time: Aug 11, 2024 03:58 PM Reporting Lab: [facility] [id number] Performing Lab: [facility] [address] FOLATE (ST[facility]-MA) 6.8 ng/mL L 7-20 Aug 14, 2024 06:59 AM [facility] VITAMIN D, 25-HYDROXY Specimen Type: SERUM No comment entered. Ordering Provider: SILVIA REDDY Report Released Date/Time: Aug 11, 2024 03:58 PM Reporting Lab: [facility] [id number] Performing Lab: [facility] [id number] VITAMIN D, 25-HYDROXY 8.9 ng/mL L 30-96 Aug 14, 2024 06:59 AM [facility] COMPREHENSIVE METABOLIC PANEL Specimen Type: PLASMA Comment: No hemolysis noted. Ordering Provider: SILVIA REDDY Report Released Date/Time: Aug 11, 2024 03:58 PM Reporting Lab: [facility] [id number] Performing Lab: [facility] [address] CREATININE 0.75 mg/dL 0.70-1.30 UREA NITROGEN 13.6 [...] 95.88 >60 Aug 14, 2024 06:59 AM [facility] CBC Specimen Type: BLOOD No comment entered. Ordering Provider: SILVIA REDDY Report Released Date/Time: Aug 11, 2024 03:58 PM Reporting Lab: [facility] [id number] Performing Lab: [facility] [id number] WBC 4.1 10*3/uL 3.6-11.2 RBC 3.20 10*6/uL [...] 10*3/uL 0.00-0.20 Aug 14, 2024 05:08 AM [facility] GLUCOSE,BLOOD-poct (STL) Specimen Type: BLOOD Comment: Test Performed by: [id number] Meter #: [id number] Ordering Provider: SILVIA REDDY Report Released Date/Time: Aug 14, 2024 05:52 AM Reporting Lab: [facility] [facility] [address] Performing Lab: [facility] [address] GLUCOSE,BLOOD- poct (STL) 135 mg/dL H 72-99 Aug 13, 2024 04:27 PM [facility] GLUCOSE,BLOOD-poct (STL) Specimen Type: BLOOD Comment: Test Performed by: [id number] Meter #: [id number] Ordering Provider: SILVIA REDDY Report Released Date/Time: Aug 13, 2024 04:41 PM Reporting Lab: [facility] [address] Performing Lab: [facility] [address] GLUCOSE,BLOOD- poct (STL) 181 mg/dL H -Aug 13, 2024 11:33 AM [facility] GLUCOSE,BLOOD-poct (STL) Specimen Type: BLOOD Comment: Test Performed by: [id number] Meter #: [id number] Ordering Provider: SILVIA REDDY Report Released Date/Time: Aug 13, 2024 03:55 PM Reporting Lab: [facility] [address] Performing Lab: [facility] [place] [address] GLUCOSE,BLOOD- poct (STL) 140 mg/dL H Aug 13, 2024 05:54 AM [facility] GLUCOSE,BLOOD-poct (STL) Specimen Type: BLOOD Comment: Test Performed by: [id number] Meter #: [id number] Ordering Provider: SILVIA REDDY Report Released Date/Time: Aug 13, 2024 06:20 AM Reporting Lab: [facility] [address] Performing Lab: [facility] [address] GLUCOSE,BLOOD- poct (STL) 112 mg/dL H Aug 12, 2024 04:35 PM [facility] GLUCOSE,BLOOD-poct (STL) Specimen Type: BLOOD Comment: Test Performed by: [id number] Meter #: [id number] Ordering Provider: SILVIA REDDY Report Released Date/Time: Aug 12, 2024 04:47 PM Reporting Lab: [facility] [address] Performing Lab: [facility] [address] GLUCOSE,BLOOD- poct (STL) 128 mg/dL H 72-99 Aug 12, 2024 11:26 AM [facility] GLUCOSE,BLOOD-poct (STL) Specimen Type: BLOOD Comment: Test Performed by: [id number] Meter #: [id number] Ordering Provider: SILVIA REDDY Report Released Date/Time: Aug 12, 2024 11:45 AM Reporting Lab: [facility] [address] Performing Lab: [facility] [place] [address] GLUCOSE,BLOOD- poct (STL) 188 mg/dL H -Aug 12, 2024 06:13 AM [facility] GLUCOSE,BLOOD-poct (STL) Specimen Type: BLOOD Comment: Test Performed by: [id number] Meter #: [id number] Ordering Provider: SILVIA REDDY Report Released Date/Time: Aug 12, 2024 06:25 AM Reporting Lab: [facility] [address] Performing Lab: [facility] [address] GLUCOSE,BLOOD- poct (STL) 116 mg/dL H 72-99 Aug 11, 2024 04:10 PM [facility] GLUCOSE,BLOOD-poct (STL) Specimen Type: BLOOD Comment: Test Performed by: [id number] Meter #: [id number] Ordering Provider: SILVIA REDDY Report Released Date/Time: Aug 11, 2024 04:27 PM Reporting Lab: [facility] [place] [address] Performing Lab: [facility] [address] GLUCOSE,BLOOD- poct (STL) 184 mg/dL H 72-99 Aug 11, 2024 01:44 PM [facility] MRSA SURVL NARES DNA Specimen Type: [...] Aug 11, 2024 02:03 PM Reporting Lab: [address] [address] Performing Lab: [address] [address] MRSA SURVL NARES DNA Negative Negative Vital Signs: All taken on the encounter date This section contains inpatient and outpatient Vital Signs collected on the date of the Encounter. Date/Time Temperature Pulse Blood Pressure Respiratory Rate SP02 Pain Height Weight Body Mass Index Source Aug 21, 2024 10:00 PM 0 [facility] Aug 21, 2024 07:09 PM 98.5 81 130/72 18 96 [facility] Aug 21, 2024 04:35 PM 71 138/70 [facility] Aug 21, 2024 10:00 AM 97.7 62 104/65 18 96 0 [facility] Aug 21, 2024 09:43 AM 0 [facility] Advance Directives: [...] DIRECTIVE DISCUSSION ERICK BARDALES [facility]
--- OUTSIDE RECORDS SUMMARY | 2024-11-17 04:07 | XMS_ITS ---
OR DAILY HOSPITALIZATION DATA [facility] Encounter Summary Created on: November 16, 2024 CHET WALKER : 1950 Sex: Male Author Name [facility] Organization [facility] [place] Address [address] [place] [address] Care Team Providers Care Etl Analyst Name Role Phone MANUEL BAIRD Primary [...] PART A Apr 08, 2017 PART A [id number] ASHLEY WALKER PATIENT Selected Encounter This section includes the information on record at OR for the Encounter. Date/Time Encounter Type Encounter Description Reason Pro vider Source Aug 21, 2024 09:54 AM Inpatient Visit DAILY HOSPITALIZATION DATA [facility] Encounter Template Text not used by OR [...] 20 appointments. The data comes from all [facility]. Appointment Date/Time Appointment Type Appointme nt Facility Name Aug 24, 2024 10:00 AM AMBULATORY - MEDICINE [facility] Aug 24, 2024 10:30 AM AMBULATORY - MEDICINE [facility] Aug 30, 2024 09:30 AM AMBULATORY MEDICINE [facility] Aug 31, 2024 01:00 PM AMBULATORY - SURGERY [facility] Sep 21, 2024 01:30 PM AMBULATORY - MEDICINE [facility] Sep 22, 2024 11:00 AM AMBULATORY - MEDICINE [facility] Sep 29, 2024 12:30 PM AMBULATORY - MEDICINE [facility] Oct 02, 2024 09:30 AM AMBULATORY - MEDICINE [facility] Nov 20, 2024 10:30 AM AMBULATORY - SURGERY [facility] Nov 21, 2024 10:00 AM AMBULATORY - NONE [facility] Dec 11, 2024 10:30 AM AMBULATORY - MEDICINE [facility] Active, Pending, and Scheduled Orders This section includes a listing of several types of active, pending, and scheduled orders, including clinic medications orders, diagnostic test orders, procedure orders and consult orders; where the start date of the order is 45 days before the date of the Encounter or 45 days after the date of theEncounter. The data comes from all [facility]. Test Date/Time Test Type Test Details Facility Name Aug 02, 2024 12:00 AM Laboratory - Chemistry Order CBC BLOOD STAT SP [facility] Aug 02, 2024 12:00 AM Laboratory - Chemistry Order COMPREHENSIVE METABOLIC PANEL GREEN LI/HEP BLD/PLAS PLASMA SP [facility] Aug 17, 2024 03:47 PM Consult Order [facility] Cons Bedside [facility] Lab Results: +/- 30 [...] Comment Aug 23, 2024 08:21 AM [facility] MAGNESIUM Specimen Type: PLASMA No comment entered. Ordering Provider: SILVIA REDDY Report Released Date/Time: Aug 22, 2024 11:26 AM Reporting Lab: [facility] [address] Performing Lab: [facility] [address] MAGNESIUM 1.8 mg/dL 1.6-2.6 Aug 23, 2024 08:21 AM [facility] CBC Specimen Type: BLOOD No comment entered. Ordering Provider: SILVIA REDDY Report Released Date/Time: Aug 22, 2024 11:19 AM Reporting Lab: [facility] [address] Performing Lab: [facility] [address] WBC 4.0 10*3/uL 3.6-11.2 RBC 3.65 10*6/uL [...] 0.00-0.20 Aug 23, 2024 05:12 AM [facility] GLUCOSE,BLOOD-poct (STL) Specimen Type: BLOOD Comment: Test Performed by: [id number] Meter #: [id number] Ordering Provider: SILVIA REDDY Report Released Date/Time: Aug 23, 2024 05:23 AM Reporting Lab: [facility] [address] Performing Lab: [facility] [address] GLUCOSE,BLOOD- poct (STL) 99 mg/dL 72-99 Aug 23, 2024 02:45 AM [facility] OCCULT BLOOD FIT X1 SCREEN Specimen Type: FECES No comment entered. Ordering Provider: SILVIA REDDY Report Released Date/Time: Aug 22, 2024 11:23 AM Reporting Lab: [address] [address] Performing Lab: [address] [address] OCCULT BLOOD (FIT) #1 OF 1 Negative Negative Aug 22, 2024 07:30 PM [facility] OCCULT BLOOD FIT X1 SCREEN Specimen Type: FECES No comment entered. Ordering Provider: SILVIA REDDY Report Released Date/Time: Aug 22, 2024 11:23 AM Reporting Lab: [address] [address] Performing Lab: [address] [address] OCCULT BLOOD (FIT) #1 OF 1 Negative Negative Aug 22, 2024 06:15 PM [facility] OCCULT BLOOD FIT X1 SCREEN Specimen Type: FECES No comment entered. Ordering Provider: SILVIA REDDY Report Released Date/Time: Aug 22, 2024 11:23 AM Reporting Lab: [address] [address] Performing Lab: [facility] [address] [facility] [address] OCCULT BLOOD (FIT) #1 OF 1 Negative Negative Aug 22, 2024 04:24 PM [facility] GLUCOSE,BLOOD-poct (STL) Specimen Type: BLOOD Comment: Test Performed by: [id number] Meter #: [id number] Ordering Provider: SILVIA REDDY Report Released Date/Time: Aug 22, 2024 04:36 PM Reporting Lab: [facility] [address] Performing Lab: [facility] [address] GLUCOSE,BLOOD- poct (STL) 176 mg/dL H -Aug 22, 2024 04:23 PM [facility] GLUCOSE,BLOOD-poct (STL) Specimen Type: BLOOD Comment: Test Performed by: [id number] Meter #: [id number] Ordering Provider: SILVIA REDDY Report Released Date/Time: Aug 22, 2024 04:36 PM Reporting Lab: [facility] [address] Performing Lab: [facility] [address] GLUCOSE,BLOOD- poct (STL) 221 mg/dL H 72-Aug 22, 2024 11:15 AM [facility] GLUCOSE,BLOOD-poct (STL) Specimen Type: BLOOD Comment: Test Performed by: [id number] Meter #: [id number] Ordering Provider: SILVIA REDDY Report Released Date/Time: Aug 22, 2024 11:27 AM Reporting Lab: [facility] [address] Performing Lab: [facility] [address] GLUCOSE,BLOOD- poct (STL) 140 mg/dL H 72-Aug 22, 2024 08:03 AM [facility] FERRITIN Specimen Type: SERUM No comment entered. Ordering Provider: JUDIT PERKINS Report Released Date/Time: Aug 18, 2024 11:01 AM Reporting Lab: [facility] [address] [facility] [address] Performing Lab: [facility] [address] [facility] [address] FERRITIN 79.50 ng/mL 22-275 Aug 22, 2024 08:03 AM [facility] IRON/TIBC PROFILE Specimen Type: SERUM No comment entered. Ordering Provider: JUDIT PERKINS Report Released Date/Time: Aug 18, 2024 11:01 AM Reporting Lab: [address] [address] Performing Lab: [address] [address] TIBC 283 ug/dL 250-450 TRANSFERRIN 226 mg/dL 163-344 IRON SATURATION 7 L 20-50 IRON 19 ug/dL L 65-175 Aug 22, 2024 08:03 AM [facility] B12 Specimen Type: SERUM No comment entered. Ordering Provider: JUDIT PERKINS Report Released Date/Time: Aug 18, 2024 11:01 AM Reporting Lab: [facility] [address] Performing Lab: [facility] [address] B12 631 pg/mL 213-816 Aug 22, 2024 08:03 AM [facility] COMPREHENSIVE METABOLIC PANEL Specimen Type: PLASMA Comment: No hemolysis noted. Ordering Provider: SILVIA REDDY Report Released Date/Time: Aug 17, 2024 01:18 PM Reporting Lab: [facility] [address] [facility] [address] Performing Lab: [address] [address] CREATININE 0.80 mg/dL 0.7-1.3 UREA NITROGEN 9.7 [...] 94.0 >60 Aug 22, 2024 08:03 AM [facility] CBC Specimen Type: BLOOD No comment entered. Ordering Provider: SILVIA REDDY Report Released Date/Time: Aug 17, 2024 01:18 PM Reporting Lab: [facility] [address] Performing Lab: [facility] [address] WBC 3.5 10*3/uL L 3.6-11.2 RBC 3.23 [...] 0 Aug 22, 2024 05:03 AM [facility] GLUCOSE,BLOOD-poct (STL) Specimen Type: BLOOD Comment: Test Performed by: [id number] Meter #: [id number] Ordering Provider: SILVIA REDDY Report Released Date/Time: Aug 22, 2024 06:17 AM Reporting Lab: [facility] [address] Performing Lab: [facility] [address] GLUCOSE,BLOOD- poct (STL) 170 mg/dL H 72-Aug 21, 2024 04:32 PM [facility] GLUCOSE,BLOOD-poct (STL) Specimen Type: BLOOD Comment: Test Performed by: [id number] Meter #: [id number] Ordering Provider: SILVIA REDDY Report Released Date/Time: Aug 21, 2024 04:49 PM Reporting Lab: [facility] [address] Performing Lab: [facility] [address] GLUCOSE,BLOOD- poct (STL) 169 mg/dL H -99 Aug 21, 2024 11:53 AM [facility] GLUCOSE,BLOOD-poct (STL) Specimen Type: BLOOD Comment: Test Performed by: [id number] Meter #: [id number] Ordering Provider: SILVIA REDDY Report Released Date/Time: Aug 21, 2024 12:11 PM Reporting Lab: [facility] [address] Performing Lab: [facility] [address] GLUCOSE,BLOOD- poct (STL) 149 mg/dL H 72-99 Aug 21, 2024 05:10 AM [facility] GLUCOSE,BLOOD-poct (STL) Specimen Type: BLOOD Comment: Test Performed by: [id number] Meter #: [id number] Ordering Provider: SILVIA REDDY Report Released Date/Time: Aug 21, 2024 05:27 AM Reporting Lab: [facility] [place] [address] Performing Lab: [facility] [place] [phone] GLUCOSE,BLOOD- poct (STL) 118 mg/dL H 72-99 Aug 20, 2024 04:38 PM [facility] GLUCOSE,BLOOD-poct (STL) Specimen Type: BLOOD Comment: Test Performed by: [id number] Meter #: [id number] Ordering Provider: SILVIA REDDY Report Released Date/Time: Aug 21, 2024 01:55 AM Reporting Lab: [facility] [place] [address] Performing Lab: [facility] [place] [address] GLUCOSE,BLOOD- poct (STL) 169 mg/dL H 72-Aug 20, 2024 04:36 PM [facility] GLUCOSE,BLOOD-poct (STL) Specimen Type: BLOOD Comment: Test Performed by: [id number] Meter #: [id number] Ordering Provider: SILVIA REDDY Report Released Date/Time: Aug 21, 2024 01:55 AM Reporting Lab: [facility] [place] [address] Performing Lab: [facility] [place] [address] GLUCOSE,BLOOD- poct (STL) 395 mg/dL H 72-99 Aug 20, 2024 11:45 AM [facility] GLUCOSE,BLOOD-poct (STL) Specimen Type: BLOOD Comment: Test Performed by: [id number] Meter #: [id number] Ordering Provider: SILVIA REDDY Report Released Date/Time: Aug 20, 2024 11:56 AM Reporting Lab: [facility] [address] Performing Lab: [facility] [address] GLUCOSE,BLOOD- poct (STL) 169 mg/dL H 72-Aug 20, 2024 05:06 AM [facility] GLUCOSE,BLOOD-poct (STL) Specimen Type: BLOOD Comment: Test Performed by: [id number] Meter #: [id number] Ordering Provider: SILVIA REDDY Report Released Date/Time: Aug 20, 2024 06:05 AM Reporting Lab: [facility] [address] Performing Lab: [facility] [address] GLUCOSE,BLOOD- poct (STL) 115 mg/dL H 72-Aug 19, 2024 04:23 PM [facility] GLUCOSE,BLOOD-poct (STL) Specimen Type: BLOOD Comment: Test Performed by: [id number] Meter #: [id number] Ordering Provider: SILVIA REDDY Report Released Date/Time: Aug 19, 2024 05:54 PM Reporting Lab: [facility] [address] Performing Lab: [facility] [address] GLUCOSE,BLOOD- poct (STL) 137 mg/dL H 72-99 Aug 19, 2024 11:28 AM [facility] GLUCOSE,BLOOD-poct (STL) Specimen Type: BLOOD Comment: Test Performed by: [id number] Meter #: [id number] Ordering Provider: SILVIA REDDY Report Released Date/Time: Aug 19, 2024 11:51 AM Reporting Lab: [facility] [address] Performing Lab: [facility] [address] GLUCOSE,BLOOD- poct (STL) 190 mg/dL H 72-99 Aug 19, 2024 05:21 AM [facility] GLUCOSE,BLOOD-poct (STL) Specimen Type: BLOOD Comment: Test Performed by: [id number] Meter #: [id number] Ordering Provider: SILVIA REDDY Report Released Date/Time: Aug 19, 2024 05:56 AM Reporting Lab: [facility] [address] Performing Lab: [facility] [address] GLUCOSE,BLOOD- poct (STL) 130 mg/dL H Aug 18, 2024 04:49 PM [facility] GLUCOSE,BLOOD-poct (STL) Specimen Type: BLOOD Comment: Test Performed by: [id number] Meter #: [id number] Ordering Provider: SILVIA REDDY Report Released Date/Time: Aug 18, 2024 05:01 PM Reporting Lab: [facility] [address] Performing Lab: [facility] [address] GLUCOSE,BLOOD- poct (STL) 129 mg/dL H Aug 18, 2024 11:23 AM [facility] GLUCOSE,BLOOD-poct (STL) Specimen Type: BLOOD Comment: Test Performed by: [id number] Meter #: [id number] Ordering Provider: SILVIA REDDY Report Released Date/Time: Aug 18, 2024 11:41 AM Reporting Lab: [facility] [address] Performing Lab: [facility] [address] GLUCOSE,BLOOD- poct (STL) 180 mg/dL H Aug 18, 2024 05:08 AM [facility] GLUCOSE,BLOOD-poct (STL) Specimen Type: BLOOD Comment: Test Performed by: [id number] Meter #: [id number] Ordering Provider: SILVIA REDDY Report Released Date/Time: Aug 18, 2024 05:31 AM Reporting Lab: [facility] [place] [address] Performing Lab: [facility] [address] GLUCOSE,BLOOD- poct (STL) 127 mg/dL H -Aug 17, 2024 07:32 PM [facility] GLUCOSE,BLOOD-poct (STL) Specimen Type: BLOOD Comment: Test Performed by: [id number] Meter #: [id number] Ordering Provider: SILVIA REDDY Report Released Date/Time: Aug 17, 2024 07:59 PM Reporting Lab: [facility] [place] [address] Performing Lab: [facility] [place] [address] GLUCOSE,BLOOD- poct (STL) 154 mg/dL H -Aug 17, 2024 04:24 PM [facility] GLUCOSE,BLOOD-poct (STL) Specimen Type: BLOOD Comment: Test Performed by: [id number] Meter #: [id number] Ordering Provider: SILVIA REDDY Report Released Date/Time: Aug 17, 2024 04:35 PM Reporting Lab: [facility] [place] [address] Performing Lab: [facility] [place] [address] GLUCOSE,BLOOD- poct (STL) 178 mg/dL H -Aug 17, 2024 05:09 AM [facility] GLUCOSE,BLOOD-poct (STL) Specimen Type: BLOOD Comment: Test Performed by: [id number] Meter #: [id number] Ordering Provider: SILVIA REDDY Report Released Date/Time: Aug 17, 2024 05:54 AM Reporting Lab: [facility] [address] Performing Lab: [facility] [address] GLUCOSE,BLOOD- poct (STL) 124 mg/dL H 72-Aug 16, 2024 07:40 PM [facility] GLUCOSE,BLOOD-poct (STL) Specimen Type: BLOOD Comment: Test Performed by: [id number] Meter #: [id number] Ordering Provider: SILVIA REDDY Report Released Date/Time: Aug 16, 2024 08:28 PM Reporting Lab: [facility] [address] Performing Lab: [facility] [address] GLUCOSE,BLOOD- poct (STL) 144 mg/dL H -Aug 16, 2024 04:19 PM [facility] GLUCOSE,BLOOD-poct (STL) Specimen Type: BLOOD Comment: Test Performed by: [id number] Meter #: [id number] Ordering Provider: SILVIA REDDY Report Released Date/Time: Aug 16, 2024 04:45 PM Reporting Lab: [facility] [address] Performing Lab: [facility] [address] GLUCOSE,BLOOD- poct (STL) 138 mg/dL H 72-Aug 16, 2024 11:52 AM [facility] GLUCOSE,BLOOD-poct (STL) Specimen Type: BLOOD Comment: Test Performed by: [id number] Meter #: [id number] Ordering Provider: SILVIA REDDY Report Released Date/Time: Aug 16, 2024 12:04 PM Reporting Lab: [facility] [address] Performing Lab: [facility] [address] GLUCOSE,BLOOD- poct (STL) 135 mg/dL H 72-99 Aug 16, 2024 05:24 AM [facility] GLUCOSE,BLOOD-poct (STL) Specimen Type: BLOOD Comment: Test Performed by: [id number] Meter #: [id number] Ordering Provider: SILVIA REDDY Report Released Date/Time: Aug 16, 2024 05:38 AM Reporting Lab: [facility] [address] Performing Lab: [facility] [address] GLUCOSE,BLOOD- poct (STL) 151 mg/dL H Aug 15, 2024 07:31 PM [facility] GLUCOSE,BLOOD-poct (STL) Specimen Type: BLOOD Comment: Test Performed by: [id number] Meter #: [id number] Ordering Provider: SILVIA REDDY Report Released Date/Time: Aug 15, 2024 08:07 PM Reporting Lab: [facility] [address] Performing Lab: [facility] [address] GLUCOSE,BLOOD- poct (STL) 173 mg/dL H Aug 15, 2024 04:18 PM [facility] GLUCOSE,BLOOD-poct (STL) Specimen Type: BLOOD Comment: Test Performed by: [id number] Meter #: [id number] Ordering Provider: SILVIA REDDY Report Released Date/Time: Aug 15, 2024 04:59 PM Reporting Lab: [facility] [address] Performing Lab: [facility] [address] GLUCOSE,BLOOD- poct (STL) 136 mg/dL H Aug 15, 2024 04:16 PM [facility] GLUCOSE,BLOOD-poct (STL) Specimen Type: BLOOD Comment: Test Performed by: [id number] Meter #: [id number] Ordering Provider: SILVIA REDDY Report Released Date/Time: Aug 15, 2024 04:59 PM Reporting Lab: [facility] [place] [address] Performing Lab: [facility] [address] GLUCOSE,BLOOD- poct (STL) 194 mg/dL H 72-Aug 15, 2024 11:39 AM [facility] GLUCOSE,BLOOD-poct (STL) Specimen Type: BLOOD Comment: Test Performed by: [id number] Meter #: [id number] Ordering Provider: SILVIA REDDY Report Released Date/Time: Aug 15, 2024 12:00 PM Reporting Lab: [facility] [place] [address] Performing Lab: [facility] [place] [address] GLUCOSE,BLOOD- poct (STL) 127 mg/dL H -Aug 15, 2024 05:07 AM [facility] GLUCOSE,BLOOD-poct (STL) Specimen Type: BLOOD Comment: Test Performed by: [id number] Meter #: [id number] Ordering Provider: SILVIA REDDY Report Released Date/Time: Aug 15, 2024 06:14 AM Reporting Lab: [facility] [place] [address] Performing Lab: [facility] [place] [address] GLUCOSE,BLOOD- poct (STL) 151 mg/dL H -Aug 14, 2024 04:22 PM [facility] GLUCOSE,BLOOD-poct (STL) Specimen Type: BLOOD Comment: Test Performed by: [id number] Meter #: [id number] Ordering Provider: SILVIA REDDY Report Released Date/Time: Aug 14, 2024 04:52 PM Reporting Lab: [facility] [address] Performing Lab: [facility] [address] GLUCOSE,BLOOD- poct (STL) 129 mg/dL H 72-99 Aug 14, 2024 11:21 AM [facility] GLUCOSE,BLOOD-poct (STL) Specimen Type: BLOOD Comment: Test Performed by: [id number] Meter #: [id number] Ordering Provider: SILVIA REDDY Report Released Date/Time: Aug 14, 2024 11:37 AM Reporting Lab: [facility] [id number] Performing Lab: [facility] [id number] GLUCOSE,BLOOD- poct (STL) 135 mg/dL H 72-Aug 14, 2024 06:59 AM [facility] QUANTIFERON-TB,4 TUBE Specimen Type: BLOOD [...] For additional information, please refer to http://[email or web address] Hobzy/faq/KDT118 (This link is being provided for information/ educational purposes only.) Test Performed by [employer], [employer] [facility], [address] [place] [address] Tommie Garcia M.D., Ph.D., Director of Laboratories , [facility] [id number] Ordering Provider: SILVIA REDDY Report Released Date/Time: Aug 11, 2024 03:58 PM Reporting Lab: [facility] [address] [facility] [id number] Performing Lab: [facility] [id number] [place] [address] .NIL - QUANTIFERON 0.04 [IU]/mL .MITOGEN-NIL 0.39 [IU]/mL .QUANTIFERON INDETERMINATE NEGATIVE .TB1-NIL <0.00 [IU]/mL .TB2-NIL <0.00 [IU]/mL Aug 14, 2024 06:59 AM [facility] MAGNESIUM Specimen Type: PLASMA Comment: No hemolysis noted. Ordering Provider: SILVIA REDDY Report Released Date/Time: Aug 11, 2024 03:58 PM Reporting Lab: [facility] [place] [id number] Performing Lab: [facility] [id number] MAGNESIUM 1.9 mg/dL 1.6-2.6 Aug 14, 2024 06:59 AM [facility] B12 Specimen Type: SERUM No comment entered. Ordering Provider: SILVIA REDDY Report Released Date/Time: Aug 11, 2024 03:58 PM Reporting Lab: [facility] [id number] Performing Lab: [facility] [id number] B12 757 pg/mL [phone] Aug 14, 2024 06:59 AM [facility] FOLATE (STL-MA) Specimen Type: SERUM No comment entered. Ordering Provider: SILVIA REDDY Report Released Date/Time: Aug 11, 2024 03:58 PM Reporting Lab: [facility] [id number] Performing Lab: [facility] [id number] FOLATE (STL-MA) 6.8 ng/mL L 7-20 Aug 14, 2024 06:59 AM [facility] VITAMIN D, 25-HYDROXY Specimen Type: SERUM No comment entered. Ordering Provider: SILVIA REDDY Report Released Date/Time: Aug 11, 2024 03:58 PM Reporting Lab: [facility] [address] Performing Lab: [facility] [address] VITAMIN D, 25-HYDROXY 8.9 ng/mL L 30-96 Aug 14, 2024 06:59 AM [facility] COMPREHENSIVE METABOLIC PANEL Specimen Type: PLASMA Comment: No hemolysis noted. Ordering Provider: SILVIA REDDY Report Released Date/Time: Aug 11, 2024 03:58 PM Reporting Lab: [facility] [address] Performing Lab: [facility] [address] CREATININE 0.75 mg/dL 0.70-1.30 UREA NITROGEN 13.6 [...] >60 Aug 14, 2024 06:59 AM [facility] CBC Specimen Type: BLOOD No comment entered. Ordering Provider: SILVIA REDDY Report Released Date/Time: Aug 11, 2024 03:58 PM Reporting Lab: [facility] [address] Performing Lab: [facility] [address] WBC 4.1 10*3/uL 3.6-11.2 RBC 3.20 10*6/uL [...] 0.00-0.20 Aug 14, 2024 05:08 AM [facility] GLUCOSE,BLOOD-poct (STL) Specimen Type: BLOOD Comment: Test Performed by: [id number] Meter #: [id number] Ordering Provider: SILVIA REDDY Report Released Date/Time: Aug 14, 2024 05:52 AM Reporting Lab: [facility] [address] Performing Lab: [facility] [address] GLUCOSE,BLOOD- poct (STL) 135 mg/dL H 72-99 Aug 13, 2024 04:27 PM [facility] GLUCOSE,BLOOD-poct (STL) Specimen Type: BLOOD Comment: Test Performed by: [id number] Meter #: [id number] Ordering Provider: SILVIA REDDY Report Released Date/Time: Aug 13, 2024 04:41 PM Reporting Lab: [facility] [address] Performing Lab: [facility] [address] GLUCOSE,BLOOD- poct (STL) 181 mg/dL H -Aug 13, 2024 11:33 AM [facility] GLUCOSE,BLOOD-poct (STL) Specimen Type: BLOOD Comment: Test Performed by: [id number] Meter #: [id number] Ordering Provider: SILVIA REDDY Report Released Date/Time: Aug 13, 2024 03:55 PM Reporting Lab: [facility] [address] Performing Lab: [facility] [place] [address] GLUCOSE,BLOOD- poct (STL) 140 mg/dL H Aug 13, 2024 05:54 AM [facility] GLUCOSE,BLOOD-poct (STL) Specimen Type: BLOOD Comment: Test Performed by: [id number] Meter #: [id number] Ordering Provider: SILVIA REDDY Report Released Date/Time: Aug 13, 2024 06:20 AM Reporting Lab: [facility] [address] Performing Lab: [facility] [address] GLUCOSE,BLOOD- poct (STL) 112 mg/dL H Aug 12, 2024 04:35 PM [facility] GLUCOSE,BLOOD-poct (STL) Specimen Type: BLOOD Comment: Test Performed by: [id number] Meter #: [id number] Ordering Provider: SILVIA REDDY Report Released Date/Time: Aug 12, 2024 04:47 PM Reporting Lab: [facility] [address] Performing Lab: [facility] [address] GLUCOSE,BLOOD- poct (STL) 128 mg/dL H 72-99 Aug 12, 2024 11:26 AM [facility] GLUCOSE,BLOOD-poct (STL) Specimen Type: BLOOD Comment: Test Performed by: [id number] Meter #: [id number] Ordering Provider: SILVIA REDDY Report Released Date/Time: Aug 12, 2024 11:45 AM Reporting Lab: [facility] [address] Performing Lab: [facility] [place] [address] GLUCOSE,BLOOD- poct (STL) 188 mg/dL H -Aug 12, 2024 06:13 AM [facility] GLUCOSE,BLOOD-poct (STL) Specimen Type: BLOOD Comment: Test Performed by: [id number] Meter #: [id number] Ordering Provider: SILVIA REDDY Report Released Date/Time: Aug 12, 2024 06:25 AM Reporting Lab: [facility] [address] Performing Lab: [facility] [address] GLUCOSE,BLOOD- poct (STL) 116 mg/dL H 72-99 Aug 11, 2024 04:10 PM [facility] GLUCOSE,BLOOD-poct (STL) Specimen Type: BLOOD Comment: Test Performed by: [id number] Meter #: [id number] Ordering Provider: SILVIA REDDY Report Released Date/Time: Aug 11, 2024 04:27 PM Reporting Lab: [facility] [place] [address] Performing Lab: [facility] [address] GLUCOSE,BLOOD- poct (STL) 184 mg/dL H 72-99 Aug 11, 2024 01:44 PM [facility] MRSA SURVL NARES DNA Specimen [...] 11, 2024 02:03 PM Reporting Lab: [address] [address] Performing Lab: [address] [address] MRSA SURVL NARES DNA Negative Negative Vital Signs: All taken on the encounter date This section contains inpatient and outpatient Vital Signs collected on the date of the Encounter. Date/Time Temperature Pulse Blood Pressure Respiratory Rate SP02 Pain Height Weight Body Mass Index Source Aug 21, 2024 10:00 PM 0 [facility] Aug 21, 2024 07:09 PM 98.5 81 130/72 18 96 [facility] Aug 21, 2024 04:35 PM 71 138/70 [facility] Aug 21, 2024 10:00 AM 97.7 62 104/65 18 96 0 [facility] Aug 21, 2024 09:43 AM 0 [facility] Advance Directives: All historical [...] ADVANCE DIRECTIVE DISCUSSION ERICK BARDALES [facility]
--- OUTSIDE RECORDS SUMMARY | 2024-11-17 04:07 | XMS_ITS ---
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 Date/Time Encounter Type Encounter Description Reason Pro vider Source Aug 22, 2024 10:17 AM Inpatient Visit DAILY HOSPITALIZATION DATA [facility] Encounter Template Text not used by [place] [...] 20 appointments. The data comes from all [facility]. Appointment Date/Time Appointment Type Appointme nt Facility Name Aug 24, 2024 10:00 AM AMBULATORY - MEDICINE [facility] Aug 24, 2024 10:30 AM AMBULATORY - MEDICINE [facility] Aug 30, 2024 09:30 AM AMBULATORY MEDICINE [facility] Aug 31, 2024 01:00 PM AMBULATORY - SUR[facility]ERY [facility] Sep 21, 2024 01:30 PM AMBULATORY - MEDICINE [facility] Sep 22, 2024 11:00 AM AMBULATORY - MEDICINE [facility] Sep 29, 2024 12:30 PM AMBULATORY - MEDICINE [facility] Oct 02, 2024 09:30 AM AMBULATORY - MEDICINE [facility] Nov 20, 2024 10:30 AM AMBULATORY - SURGERY [facility] Nov 21, 2024 10:00 AM AMBULATORY - NONE [facility] Dec 11, 2024 10:30 AM AMBULATORY - MEDICINE [facility] Active, Pending, and Scheduled Orders This section includes a listing of several types of active, pending, and scheduled orders, including clinic medications orders, diagnostic test orders, procedure orders and consult orders; where the start date of the order is 45 days before the date of the Encounter or 45 days after the date of theEncounter. The data comes from all [facility]. Test Date/Time Test Type Test Details Facility Name Aug 02, 2024 12:00 AM Laboratory - Chemistry Order CBC BLOOD STAT SP [facility] Aug 02, 2024 12:00 AM Laboratory - Chemistry Order COMPREHENSIVE METABOLIC PANEL GREEN LI/HEP BLD/PLAS PLASMA SP [facility] Aug 17, 2024 03:47 PM Consult Order [facility] Cons Bedside [facility] Lab Results: +/- 30 days [...] Range Comment Aug 23, 2024 08:21 AM [facility] MAGNESIUM Specimen Type: PLASMA No comment entered. Ordering Provider: SILVIA REDDY Report Released Date/Time: Aug 22, 2024 11:26 AM Reporting Lab: [facility] [address] Performing Lab: [facility] [address] MAGNESIUM 1.8 mg/dL 1.6-2.6 Aug 23, 2024 08:21 AM [facility] CBC Specimen Type: BLOOD No comment entered. Ordering Provider: SILVIA REDDY Report Released Date/Time: Aug 22, 2024 11:19 AM Reporting Lab: [facility] [address] Performing Lab: [facility] [address] WBC 4.0 10*3/uL 3.6-11.2 RBC 3.65 10*6/uL [...] 10*3/uL 0.00-0.20 Aug 23, 2024 05:12 AM [facility] GLUCOSE,BLOOD-poct (STL) Specimen Type: BLOOD Comment: Test Performed by: [id number] Meter #: [id number] Ordering Provider: SILVIA REDDY Report Released Date/Time: Aug 23, 2024 05:23 AM Reporting Lab: [facility] [address] Performing Lab: [facility] #[facility] [address] GLUCOSE,BLOOD- poct (STL) 99 mg/dL 72-99 Aug 23, 2024 02:45 AM [facility] OCCULT BLOOD FIT X1 SCREEN Specimen Type: FECES No comment entered. Ordering Provider: SILVIA REDDY Report Released Date/Time: Aug 22, 2024 11:23 AM Reporting Lab: [address] [address] Performing Lab: [address] [address] OCCULT BLOOD (FIT) #1 OF 1 Negative Negative Aug 22, 2024 07:30 PM [facility] OCCULT BLOOD FIT X1 SCREEN Specimen Type: FECES No comment entered. Ordering Provider: SILVIA REDDY Report Released Date/Time: Aug 22, 2024 11:23 AM Reporting Lab: [address] [address] Performing Lab: [address] [address] OCCULT BLOOD (FIT) #1 OF 1 Negative Negative Aug 22, 2024 06:15 PM [facility] OCCULT BLOOD FIT X1 SCREEN Specimen Type: FECES No comment entered. Ordering Provider: SILVIA REDDY Report Released Date/Time: Aug 22, 2024 11:23 AM Reporting Lab: [address] [address] Performing Lab: [facility] [address] [facility] [address] OCCULT BLOOD (FIT) #1 OF 1 Negative Negative Aug 22, 2024 04:24 PM [facility] GLUCOSE,BLOOD-poct (STL) Specimen Type: BLOOD Comment: Test Performed by: [id number] Meter #: [id number] Ordering Provider: SILVIA REDDY Report Released Date/Time: Aug 22, 2024 04:36 PM Reporting Lab: [facility] [address] Performing Lab: [facility] #[facility] [address] GLUCOSE,BLOOD- poct (STL) 176 mg/dL H -Aug 22, 2024 04:23 PM [facility] GLUCOSE,BLOOD-poct (STL) Specimen Type: BLOOD Comment: Test Performed by: [id number] Meter #: [id number] Ordering Provider: SILVIA REDDY Report Released Date/Time: Aug 22, 2024 04:36 PM Reporting Lab: [facility] [address] Performing Lab: [facility] [address] GLUCOSE,BLOOD- poct (STL) 221 mg/dL H 72-Aug 22, 2024 11:15 AM [facility] GLUCOSE,BLOOD-poct (STL) Specimen Type: BLOOD Comment: Test Performed by: [id number] Meter #: [id number] Ordering Provider: SILVIA REDDY Report Released Date/Time: Aug 22, 2024 11:27 AM Reporting Lab: [facility] [address] Performing Lab: [facility] [address] GLUCOSE,BLOOD- poct (STL) 140 mg/dL H 72-Aug 22, 2024 08:03 AM [facility] FERRITIN Specimen Type: SERUM No comment entered. Ordering Provider: JUDIT PERKINS Report Released Date/Time: Aug 18, 2024 11:01 AM Reporting Lab: [facility] [address] [facility] [address] Performing Lab: [facility] [address] [facility] [address] FERRITIN 79.50 ng/mL 22-275 Aug 22, 2024 08:03 AM [facility] B12 Specimen Type: SERUM No comment entered. Ordering Provider: JUDIT PERKINS Report Released Date/Time: Aug 18, 2024 11:01 AM Reporting Lab: [facility] [address] Performing Lab: [facility] #[facility] [address] B12 631 pg/mL 213-816 Aug 22, 2024 08:03 AM [facility] IRON/TIBC PROFILE Specimen Type: SERUM No comment entered. Ordering Provider: JUDIT PERKINS Report Released Date/Time: Aug 18, 2024 11:01 AM Reporting Lab: [place] [id number] [facility] [address] Performing Lab: [address] [address] TIBC 283 ug/dL 250-450 TRANSFERRIN 226 mg/dL 163-344 IRON SATURATION 7 L 20-50 IRON 19 ug/dL L 65-175 Aug 22, 2024 08:03 AM [facility] COMPREHENSIVE METABOLIC PANEL Specimen Type: PLASMA Comment: No hemolysis noted. Ordering Provider: SILVIA REDDY Report Released Date/Time: Aug 17, 2024 01:18 PM Reporting Lab: [facility] [address] [facility] [address] Performing Lab: [address] [address] CREATININE 0.80 mg/dL 0.7-1.3 UREA NITROGEN 9.7 [...] Reporting Lab: [facility] [address] Performing Lab: [facility] [address] WBC 3.5 10*3/uL L 3.6-11.2 RBC 3.23 [...] NRBC% 0 Aug 22, 2024 05:03 AM [facility] GLUCOSE,BLOOD-poct (STL) Specimen Type: BLOOD Comment: Test Performed by: [id number] Meter #: [id number] Ordering Provider: SILVIA REDDY Report Released Date/Time: Aug 22, 2024 06:17 AM Reporting Lab: [facility] [address] Performing Lab: [facility] [address] GLUCOSE,BLOOD- poct (STL) 170 mg/dL H 72-Aug 21, 2024 04:32 PM [facility] GLUCOSE,BLOOD-poct (STL) Specimen Type: BLOOD Comment: Test Performed by: [id number] Meter #: [id number] Ordering Provider: SILVIA REDDY Report Released Date/Time: Aug 21, 2024 04:49 PM Reporting Lab: [facility] [address] Performing Lab: [facility] #[address] [facility] [address] GLUCOSE,BLOOD- poct (STL) 169 mg/dL H -99 Aug 21, 2024 11:53 AM [facility] GLUCOSE,BLOOD-poct (STL) Specimen Type: BLOOD Comment: Test Performed by: [id number] Meter #: [id number] Ordering Provider: SILVIA REDDY Report Released Date/Time: Aug 21, 2024 12:11 PM Reporting Lab: [facility] [address] Performing Lab: [facility] [address] GLUCOSE,BLOOD- poct (STL) 149 mg/dL H 72-99 Aug 21, 2024 05:10 AM [facility] GLUCOSE,BLOOD-poct (STL) Specimen Type: BLOOD Comment: Test Performed by: [id number] Meter #: [id number] Ordering Provider: SILVIA REDDY Report Released Date/Time: Aug 21, 2024 05:27 AM Reporting Lab: [facility] [place] [address] Performing Lab: [facility] #[address] [place] [id number] GLUCOSE,BLOOD- poct (STL) 118 mg/dL H 72-99 Aug 20, 2024 04:38 PM [facility] GLUCOSE,BLOOD-poct (STL) Specimen Type: BLOOD Comment: Test Performed by: [id number] Meter #: [id number] Ordering Provider: SILVIA REDDY Report Released Date/Time: Aug 21, 2024 01:55 AM Reporting Lab: [facility] [place] [address] Performing Lab: [facility] #[address] [place] [address] GLUCOSE,BLOOD- poct (STL) 169 mg/dL H 72-Aug 20, 2024 04:36 PM [facility] GLUCOSE,BLOOD-poct (STL) Specimen Type: BLOOD Comment: Test Performed by: [id number] Meter #: [id number] Ordering Provider: SILVIA REDDY Report Released Date/Time: Aug 21, 2024 01:55 AM Reporting Lab: [facility] [place] [address] Performing Lab: [facility] [place] [address] GLUCOSE,BLOOD- poct (STL) 395 mg/dL H 72-99 Aug 20, 2024 11:45 AM [facility] GLUCOSE,BLOOD-poct (STL) Specimen Type: BLOOD Comment: Test Performed by: [id number] Meter #: [id number] Ordering Provider: SILVIA REDDY Report Released Date/Time: Aug 20, 2024 11:56 AM Reporting Lab: [facility] [address] Performing Lab: [facility] #[facility] [address] GLUCOSE,BLOOD- poct (STL) 169 mg/dL H 72-Aug 20, 2024 05:06 AM [facility] GLUCOSE,BLOOD-poct (STL) Specimen Type: BLOOD Comment: Test Performed by: [id number] Meter #: [id number] Ordering Provider: SILVIA REDDY Report Released Date/Time: Aug 20, 2024 06:05 AM Reporting Lab: [facility] [address] Performing Lab: [facility] #[facility] [address] GLUCOSE,BLOOD- poct (STL) 115 mg/dL H 72-Aug 19, 2024 04:23 PM [facility] GLUCOSE,BLOOD-poct (STL) Specimen Type: BLOOD Comment: Test Performed by: [id number] Meter #: [id number] Ordering Provider: SILVIA REDDY Report Released Date/Time: Aug 19, 2024 05:54 PM Reporting Lab: [facility] [address] Performing Lab: [facility] #[facility] [address] GLUCOSE,BLOOD- poct (STL) 137 mg/dL H 72-99 Aug 19, 2024 11:28 AM [facility] GLUCOSE,BLOOD-poct (STL) Specimen Type: BLOOD Comment: Test Performed by: [id number] Meter #: [id number] Ordering Provider: SILVIA REDDY Report Released Date/Time: Aug 19, 2024 11:51 AM Reporting Lab: [facility] [address] Performing Lab: [facility] [address] GLUCOSE,BLOOD- poct (STL) 190 mg/dL H 72-99 Aug 19, 2024 05:21 AM [facility] GLUCOSE,BLOOD-poct (STL) Specimen Type: BLOOD Comment: Test Performed by: [id number] Meter #: [id number] Ordering Provider: SILVIA REDDY Report Released Date/Time: Aug 19, 2024 05:56 AM Reporting Lab: [facility] [address] Performing Lab: [facility] [address] GLUCOSE,BLOOD- poct (STL) 130 mg/dL H Aug 18, 2024 04:49 PM [facility] GLUCOSE,BLOOD-poct (STL) Specimen Type: BLOOD Comment: Test Performed by: [id number] Meter #: [id number] Ordering Provider: SILVIA REDDY Report Released Date/Time: Aug 18, 2024 05:01 PM Reporting Lab: [facility] [address] Performing Lab: [facility] [address] GLUCOSE,BLOOD- poct (STL) 129 mg/dL H Aug 18, 2024 11:23 AM [facility] GLUCOSE,BLOOD-poct (STL) Specimen Type: BLOOD Comment: Test Performed by: [id number] Meter #: [id number] Ordering Provider: SILVIA REDDY Report Released Date/Time: Aug 18, 2024 11:41 AM Reporting Lab: [facility] [address] Performing Lab: [facility] #[facility] [address] GLUCOSE,BLOOD- poct (STL) 180 mg/dL H Aug 18, 2024 05:08 AM [facility] GLUCOSE,BLOOD-poct (STL) Specimen Type: BLOOD Comment: Test Performed by: [id number] Meter #: [id number] Ordering Provider: SILVIA REDDY Report Released Date/Time: Aug 18, 2024 05:31 AM Reporting Lab: [facility] [place] [address] Performing Lab: [facility] [address] GLUCOSE,BLOOD- poct (STL) 127 mg/dL H -Aug 17, 2024 07:32 PM [facility] GLUCOSE,BLOOD-poct (STL) Specimen Type: BLOOD Comment: Test Performed by: [id number] Meter #: [id number] Ordering Provider: SILVIA REDDY Report Released Date/Time: Aug 17, 2024 07:59 PM Reporting Lab: [facility] [place] [address] Performing Lab: [facility] [place] [address] GLUCOSE,BLOOD- poct (STL) 154 mg/dL H -Aug 17, 2024 04:24 PM [facility] GLUCOSE,BLOOD-poct (STL) Specimen Type: BLOOD Comment: Test Performed by: [id number] Meter #: [id number] Ordering Provider: SILVIA REDDY Report Released Date/Time: Aug 17, 2024 04:35 PM Reporting Lab: [facility] [place] [address] Performing Lab: [facility] [place] [address] GLUCOSE,BLOOD- poct (STL) 178 mg/dL H -Aug 17, 2024 05:09 AM [facility] GLUCOSE,BLOOD-poct (STL) Specimen Type: BLOOD Comment: Test Performed by: [id number] Meter #: [id number] Ordering Provider: SILVIA REDDY Report Released Date/Time: Aug 17, 2024 05:54 AM Reporting Lab: [facility] [address] Performing Lab: [facility] [address] GLUCOSE,BLOOD- poct (STL) 124 mg/dL H 72-Aug 16, 2024 07:40 PM [facility] GLUCOSE,BLOOD-poct (STL) Specimen Type: BLOOD Comment: Test Performed by: [id number] Meter #: [id number] Ordering Provider: SILVIA REDDY Report Released Date/Time: Aug 16, 2024 08:28 PM Reporting Lab: [facility] [address] Performing Lab: [facility] [address] GLUCOSE,BLOOD- poct (STL) 144 mg/dL H -Aug 16, 2024 04:19 PM [facility] GLUCOSE,BLOOD-poct (STL) Specimen Type: BLOOD Comment: Test Performed by: [id number] Meter #: [id number] Ordering Provider: SILVIA REDDY Report Released Date/Time: Aug 16, 2024 04:45 PM Reporting Lab: [facility] [address] Performing Lab: [facility] [address] GLUCOSE,BLOOD- poct (STL) 138 mg/dL H 72-Aug 16, 2024 11:52 AM [facility] GLUCOSE,BLOOD-poct (STL) Specimen Type: BLOOD Comment: Test Performed by: [id number] Meter #: [id number] Ordering Provider: SILVIA REDDY Report Released Date/Time: Aug 16, 2024 12:04 PM Reporting Lab: [facility] [address] Performing Lab: [facility] [address] GLUCOSE,BLOOD- poct (STL) 135 mg/dL H 72-99 Aug 16, 2024 05:24 AM [facility] GLUCOSE,BLOOD-poct (STL) Specimen Type: BLOOD Comment: Test Performed by: [id number] Meter #: [id number] Ordering Provider: SILVIA REDDY Report Released Date/Time: Aug 16, 2024 05:38 AM Reporting Lab: [facility] [address] Performing Lab: [facility] [address] GLUCOSE,BLOOD- poct (STL) 151 mg/dL H Aug 15, 2024 07:31 PM [facility] GLUCOSE,BLOOD-poct (STL) Specimen Type: BLOOD Comment: Test Performed by: [id number] Meter #: [id number] Ordering Provider: SILVIA REDDY Report Released Date/Time: Aug 15, 2024 08:07 PM Reporting Lab: [facility] [address] Performing Lab: [facility] [address] GLUCOSE,BLOOD- poct (STL) 173 mg/dL H Aug 15, 2024 04:18 PM [facility] GLUCOSE,BLOOD-poct (STL) Specimen Type: BLOOD Comment: Test Performed by: [id number] Meter #: [id number] Ordering Provider: SILVIA REDDY Report Released Date/Time: Aug 15, 2024 04:59 PM Reporting Lab: [facility] [address] Performing Lab: [facility] [address] GLUCOSE,BLOOD- poct (STL) 136 mg/dL H Aug 15, 2024 04:16 PM [facility] GLUCOSE,BLOOD-poct (STL) Specimen Type: BLOOD Comment: Test Performed by: [id number] Meter #: [id number] Ordering Provider: SILVIA REDDY Report Released Date/Time: Aug 15, 2024 04:59 PM Reporting Lab: [facility] [place] [address] Performing Lab: [facility] [address] GLUCOSE,BLOOD- poct (STL) 194 mg/dL H 72-Aug 15, 2024 11:39 AM [facility] GLUCOSE,BLOOD-poct (STL) Specimen Type: BLOOD Comment: Test Performed by: [id number] Meter #: [id number] Ordering Provider: SILVIA REDDY Report Released Date/Time: Aug 15, 2024 12:00 PM Reporting Lab: [facility] [place] [address] Performing Lab: [facility] [place] [address] GLUCOSE,BLOOD- poct (STL) 127 mg/dL H -Aug 15, 2024 05:07 AM [facility] GLUCOSE,BLOOD-poct (STL) Specimen Type: BLOOD Comment: Test Performed by: [id number] Meter #: [id number] Ordering Provider: SILVIA REDDY Report Released Date/Time: Aug 15, 2024 06:14 AM Reporting Lab: [facility] [place] [address] Performing Lab: [facility] [place] [address] GLUCOSE,BLOOD- poct (STL) 151 mg/dL H -Aug 14, 2024 04:22 PM [facility] GLUCOSE,BLOOD-poct (STL) Specimen Type: BLOOD Comment: Test Performed by: [id number] Meter #: [id number] Ordering Provider: SILVIA REDDY Report Released Date/Time: Aug 14, 2024 04:52 PM Reporting Lab: [facility] [address] Performing Lab: [facility] [address] GLUCOSE,BLOOD- poct (STL) 129 mg/dL H 72-99 Aug 14, 2024 11:21 AM [facility] GLUCOSE,BLOOD-poct (STL) Specimen Type: BLOOD Comment: Test Performed by: [id number] Meter #: [id number] Ordering Provider: SILVIA REDDY Report Released Date/Time: Aug 14, 2024 11:37 AM Reporting Lab: [facility] [address] Performing Lab: [facility] [address] GLUCOSE,BLOOD- poct (STL) 135 mg/dL H 72-Aug 14, 2024 06:59 AM [facility] QUANTIFERON-TB,4 TUBE Specimen Type: BLOOD Comment: [...] For additional information, please refer to [email or web address] (This link is being provided for information/ educational purposes only.) Test Performed by [email or web address], [facility], [address] [place] [address] Tommie Garcia M.D., Ph.D., Director of Laboratories , [facility] [id number] Ordering Provider: SILVIA REDDY Report Released Date/Time: Aug 11, 2024 03:58 PM Reporting Lab: [facility] [address] [facility] [address] Performing Lab: [facility] [id number] [place] [address] .NIL - QUANTIFERON 0.04 [IU]/mL .MITOGEN-NIL 0.39 [IU]/mL .QUANTIFERON INDETERMINATE NEGATIVE .TB1-NIL <0.00 [IU]/mL .TB2-NIL <0.00 [IU]/mL Aug 14, 2024 06:59 AM [facility] MAGNESIUM Specimen Type: PLASMA Comment: No hemolysis noted. Ordering Provider: SILVIA REDDY Report Released Date/Time: Aug 11, 2024 03:58 PM Reporting Lab: [facility] [place] [id number] Performing Lab: [facility] [address] MAGNESIUM 1.9 mg/dL 1.6-2.6 Aug 14, 2024 06:59 AM [facility] B12 Specimen Type: SERUM No comment entered. Ordering Provider: SILVIA REDDY Report Released Date/Time: Aug 11, 2024 03:58 PM Reporting Lab: [facility] [id number] Performing Lab: [facility] [address] B12 757 pg/mL 213-816 Aug 14, 2024 06:59 AM [facility] FOLATE (STL-MA) Specimen Type: SERUM No comment entered. Ordering Provider: SILVIA REDDY Report Released Date/Time: Aug 11, 2024 03:58 PM Reporting Lab: [facility] [id number] Performing Lab: [facility] [address] FOLATE (STL-MA) 6.8 ng/mL L 7-20 Aug 14, 2024 06:59 AM [facility] VITAMIN D, 25-HYDROXY Specimen Type: SERUM No comment entered. Ordering Provider: SILVIA REDDY Report Released Date/Time: Aug 11, 2024 03:58 PM Reporting Lab: [facility] [address] Performing Lab: [facility] [address] VITAMIN D, 25-HYDROXY 8.9 ng/mL L 30-96 Aug 14, 2024 06:59 AM [facility] COMPREHENSIVE METABOLIC PANEL Specimen Type: PLASMA Comment: No hemolysis noted. Ordering Provider: SILVIA REDDY Report Released Date/Time: Aug 11, 2024 03:58 PM Reporting Lab: [facility] [address] Performing Lab: [facility] [address] CREATININE 0.75 mg/dL 0.70-1.30 UREA NITROGEN 13.6 [...] 95.88 >60 Aug 14, 2024 06:59 AM [facility] CBC Specimen Type: BLOOD No comment entered. Ordering Provider: SILVIA REDDY Report Released Date/Time: Aug 11, 2024 03:58 PM Reporting Lab: [facility] [address] Performing Lab: [facility] [address] WBC 4.1 10*3/uL 3.6-11.2 RBC 3.20 10*6/uL [...] 10*3/uL 0.00-0.20 Aug 14, 2024 05:08 AM [facility] GLUCOSE,BLOOD-poct (STL) Specimen Type: BLOOD Comment: Test Performed by: [id number] Meter #: [id number] Ordering Provider: SILVIA REDDY Report Released Date/Time: Aug 14, 2024 05:52 AM Reporting Lab: [facility] [address] Performing Lab: [facility] [address] GLUCOSE,BLOOD- poct (STL) 135 mg/dL H 72-99 Aug 13, 2024 04:27 PM [facility] GLUCOSE,BLOOD-poct (STL) Specimen Type: BLOOD Comment: Test Performed by: [id number] Meter #: [id number] Ordering Provider: SILVIA REDDY Report Released Date/Time: Aug 13, 2024 04:41 PM Reporting Lab: [facility] [address] Performing Lab: [facility] [address] GLUCOSE,BLOOD- poct (STL) 181 mg/dL H -Aug 13, 2024 11:33 AM [facility] GLUCOSE,BLOOD-poct (STL) Specimen Type: BLOOD Comment: Test Performed by: [id number] Meter #: [id number] Ordering Provider: SILVIA REDDY Report Released Date/Time: Aug 13, 2024 03:55 PM Reporting Lab: [facility] [address] Performing Lab: [facility] [place] [address] GLUCOSE,BLOOD- poct (STL) 140 mg/dL H Aug 13, 2024 05:54 AM [facility] GLUCOSE,BLOOD-poct (STL) Specimen Type: BLOOD Comment: Test Performed by: [id number] Meter #: [id number] Ordering Provider: SILVIA REDDY Report Released Date/Time: Aug 13, 2024 06:20 AM Reporting Lab: [facility] [address] Performing Lab: [facility] [address] GLUCOSE,BLOOD- poct (STL) 112 mg/dL H Aug 12, 2024 04:35 PM [facility] GLUCOSE,BLOOD-poct (STL) Specimen Type: BLOOD Comment: Test Performed by: [id number] Meter #: [id number] Ordering Provider: SILVIA REDDY Report Released Date/Time: Aug 12, 2024 04:47 PM Reporting Lab: [facility] [address] Performing Lab: [facility] [address] GLUCOSE,BLOOD- poct (STL) 128 mg/dL H 72-99 Aug 12, 2024 11:26 AM [facility] GLUCOSE,BLOOD-poct (STL) Specimen Type: BLOOD Comment: Test Performed by: [id number] Meter #: [id number] Ordering Provider: SILVIA REDDY Report Released Date/Time: Aug 12, 2024 11:45 AM Reporting Lab: [facility] [address] Performing Lab: [facility] [place] [address] GLUCOSE,BLOOD- poct (STL) 188 mg/dL H -Aug 12, 2024 06:13 AM [facility] GLUCOSE,BLOOD-poct (STL) Specimen Type: BLOOD Comment: Test Performed by: [id number] Meter #: [id number] Ordering Provider: SILVIA REDDY Report Released Date/Time: Aug 12, 2024 06:25 AM Reporting Lab: [facility] [address] Performing Lab: [facility] [address] GLUCOSE,BLOOD- poct (STL) 116 mg/dL H 72-99 Aug 11, 2024 04:10 PM [facility] GLUCOSE,BLOOD-poct (STL) Specimen Type: BLOOD Comment: Test Performed by: [id number] Meter #: [id number] Ordering Provider: SILVIA REDDY Report Released Date/Time: Aug 11, 2024 04:27 PM Reporting Lab: [facility] [place] [address] Performing Lab: [facility] [place] [address] GLUCOSE,BLOOD- poct (STL) 184 mg/dL H 72-99 Aug 11, 2024 01:44 PM [facility] MRSA SURVL NARES DNA Specimen Type: [...] 11, 2024 02:03 PM Reporting Lab: [address] [address] Performing Lab: [address] [address] MRSA SURVL NARES DNA Negative Negative Vital Signs: All taken on the encounter date This section contains inpatient and outpatient Vital Signs collected on the date of the Encounter. Date/Time Temperature Pulse Blood Pressure Respiratory Rate SP02 Pain Height Weight Body Mass Index Source Aug 22, 2024 07:17 PM 98.1 74 117/73 20 95 [facility] Aug 22, 2024 10:30 AM 98.1 55 104/61 18 96 [facility] Aug 22, 2024 05:18 AM 97.9 76 120/77 20 95 [facility] Advance Directives: [...] 19, 2017 ADVANCE DIRECTIVE DISCUSSION [facility]
--- OUTSIDE RECORDS SUMMARY | 2024-11-17 04:07 | XMS_ITS ---
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 Date/Time Encounter Type Encounter Description Reason Pro vider Source Aug 21, 2024 11:33 PM Inpatient Visit DAILY HOSPITALIZATION DATA TARIQ MICHAUD Encounter Template Text not used by VA [...] 2024 10:00 AM AMBULATORY - MEDICINE [facility] Aug 24, 2024 10:30 AM AMBULATORY - MEDICINE [facility] Aug 30, 2024 09:[address] [facility] Aug 31, 2024 01:00 PM AMBULATORY - SURGERY [facility] Sep 21, 2024 01:30 PM AMBULATORY - MEDICINE [facility] Sep 22, 2024 11:00 AM AMBULATORY - MEDICINE [facility] Sep 29, 2024 12:30 PM AMBULATORY - MEDICINE [facility] Oct 02, 2024 09:30 AM AMBULATORY - MEDICINE [facility] Nov 20, 2024 10:30 AM AMBULATORY - SURGERY [facility] Nov 21, 2024 10:00 AM AMBULATORY - NONE [facility] Dec 11, 2024 10:30 AM AMBULATORY - MEDICINE [facility] Active, Pending, and Scheduled Orders [...] - Chemistry Order CBC BLOOD STAT SP [facility] Aug 02, 2024 12:00 AM Laboratory - Chemistry Order COMPREHENSIVE METABOLIC PANEL GREEN LI/HEP BLD/PLAS PLASMA SP [facility] Aug 17, 2024 03:47 PM Consult Order [facility] Cons Bedside [facility] Lab Results: +/- 30 days [...] Aug 22, 2024 11:26 AM Reporting Lab: [facility] [address] Performing Lab: [facility] [address] MAGNESIUM 1.8 mg/dL 1.6-2.6 Aug 23, 2024 08:21 AM [facility] CBC Specimen Type: BLOOD No comment entered. Ordering Provider: SILVIA REDDY Report Released Date/Time: Aug 22, 2024 11:19 AM Reporting Lab: [facility] [address] Performing Lab: [facility]1 [facility] [address] WBC 4.0 10*3/uL 3.6-11.2 RBC 3.65 10*6/uL [...] Specimen Type: BLOOD Comment: Test Performed by: [id number] Meter #: [id number] Ordering Provider: SILVIA REDDY Report Released Date/Time: Aug 23, 2024 05:23 AM Reporting Lab: [facility] [address] Performing Lab: [facility] #1 [facility] [address] GLUCOSE,BLOOD- poct (STL) 99 mg/dL 72-99 Aug 23, 2024 02:45 AM [facility] OCCULT BLOOD FIT X1 SCREEN Specimen Type: FECES No comment entered. Ordering Provider: SILVIA REDDY Report Released Date/Time: Aug 22, 2024 11:23 AM Reporting Lab: [address] [address] Performing Lab: [address] [address] OCCULT BLOOD (FIT) #1 OF 1 Negative Negative Aug 22, 2024 07:30 PM [facility] OCCULT BLOOD FIT X1 SCREEN Specimen Type: FECES No comment entered. Ordering Provider: SILVIA REDDY Report Released Date/Time: Aug 22, 2024 11:23 AM Reporting Lab: [address] [address] Performing Lab: [address] [address] OCCULT BLOOD (FIT) #1 OF 1 Negative Negative Aug 22, 2024 06:15 PM [facility] OCCULT BLOOD FIT X1 SCREEN Specimen Type: FECES No comment entered. Ordering Provider: SILVIA REDDY Report Released Date/Time: Aug 22, 2024 11:23 AM Reporting Lab: [address] [address] Performing Lab: [place] [address] [facility] [address] OCCULT BLOOD (FIT) #1 OF 1 Negative Negative Aug 22, 2024 04:24 PM [facility] GLUCOSE,BLOOD-poct (STL) Specimen Type: BLOOD Comment: Test Performed by: [id number] Meter #: [id number] Ordering Provider: SILVIA REDDY Report Released Date/Time: Aug 22, 2024 04:36 PM Reporting Lab: [facility] [address] Performing Lab: [facility] #1 [facility] [address] GLUCOSE,BLOOD- poct (STL) 176 mg/dL H -Aug 22, 2024 04:23 PM [facility] GLUCOSE,BLOOD-poct (STL) Specimen Type: BLOOD Comment: Test Performed by: [id number] Meter #: [id number] Ordering Provider: SILVIA REDDY Report Released Date/Time: Aug 22, 2024 04:36 PM Reporting Lab: [facility]1 [facility] [address] Performing Lab: [facility] #1 [facility] [address] GLUCOSE,BLOOD- poct (STL) 221 mg/dL H 72-Aug 22, 2024 11:15 AM [facility] GLUCOSE,BLOOD-poct (STL) Specimen Type: BLOOD Comment: Test Performed by: [id number] Meter #: [id number] Ordering Provider: SILVIA REDDY Report Released Date/Time: Aug 22, 2024 11:27 AM Reporting Lab: [facility]1 [facility] [address] Performing Lab: [facility] #1 [facility] [address] GLUCOSE,BLOOD- poct (STL) 140 mg/dL H 72-Aug 22, 2024 08:[address] [facility] FERRITIN Specimen Type: SERUM No comment entered. Ordering Provider: JUDIT PERKINS Report Released Date/Time: Aug 18, 2024 11:01 AM Reporting Lab: [facility] [address] [facility] [address] Performing Lab: [facility] [address] [facility] [address] FERRITIN 79.50 ng/mL 22-275 Aug 22, 2024 08:03 AM [facility] B12 Specimen Type: SERUM No comment entered. Ordering Provider: JUDIT PERKINS Report Released Date/Time: Aug 18, 2024 11:01 AM Reporting Lab: [facility]1 [facility] [address] Performing Lab: [facility] #1 [facility] [address] B12 631 pg/mL 213-816 Aug 22, 2024 08:03 AM [facility] IRON/TIBC PROFILE Specimen Type: SERUM No comment entered. Ordering Provider: JUDIT PERKINS Report Released Date/Time: Aug 18, 2024 11:01 AM Reporting Lab: [place] [address] [facility] [address] Performing Lab: [facility] [address] [place] [address] TIBC 283 ug/dL 250-450 TRANSFERRIN 226 mg/dL 163-344 IRON SATURATION 7 L 20-50 IRON 19 ug/dL L 65-175 Aug 22, 2024 08:03 AM [facility] COMPREHENSIVE METABOLIC PANEL Specimen Type: PLASMA Comment: No hemolysis noted. Ordering Provider: SILVIA REDDY Report Released Date/Time: Aug 17, 2024 01:18 PM Reporting Lab: [facility] [address] [facility] [address] Performing Lab: [address] [address] CREATININE 0.80 mg/dL 0.7-1.3 UREA NITROGEN 9.7 [...] 94.0 >60 Aug 22, 2024 08:03 AM [facility] CBC Specimen Type: BLOOD No comment entered. Ordering Provider: SILVIA REDDY Report Released Date/Time: Aug 17, 2024 01:18 PM Reporting Lab: [facility]1 [facility] [address] Performing Lab: [facility]1 [facility] [address] WBC 3.5 10*3/uL L 3.6-11.2 RBC 3.23 [...] Specimen Type: BLOOD Comment: Test Performed by: [id number] Meter #: [id number] Ordering Provider: SILVIA REDDY Report Released Date/Time: Aug 22, 2024 06:17 AM Reporting Lab: [facility] #1 [facility] [address] Performing Lab: [facility] #1 [facility] [address] GLUCOSE,BLOOD- poct (STL) 170 mg/dL H 72-Aug 21, 2024 04:32 PM [facility] GLUCOSE,BLOOD-poct (STL) Specimen Type: BLOOD Comment: Test Performed by: [id number] Meter #: [id number] Ordering Provider: SILVIA REDDY Report Released Date/Time: Aug 21, 2024 04:49 PM Reporting Lab: [facility]1 [facility] [address] Performing Lab: [facility] #1 [facility] [address] GLUCOSE,BLOOD- poct (STL) 169 mg/dL H -Aug 21, 2024 11:53 AM [facility] GLUCOSE,BLOOD-poct (STL) Specimen Type: BLOOD Comment: Test Performed by: [id number] Meter #: [id number] Ordering Provider: SILVIA REDDY Report Released Date/Time: Aug 21, 2024 12:11 PM Reporting Lab: [facility] #1 [facility] [address] Performing Lab: [facility] #1 [facility] [address] GLUCOSE,BLOOD- poct (STL) 149 mg/dL H 72-Aug 21, 2024 05:10 AM [facility] GLUCOSE,BLOOD-poct (STL) Specimen Type: BLOOD Comment: Test Performed by: [id number] Meter #: [id number] Ordering Provider: SILVIA REDDY Report Released Date/Time: Aug 21, 2024 05:27 AM Reporting Lab: [facility] #1 [facility] [address] Performing Lab: [facility] #1 [facility] [address] GLUCOSE,BLOOD- poct (STL) 118 mg/dL H 72-Aug 20, 2024 04:38 PM [facility] GLUCOSE,BLOOD-poct (STL) Specimen Type: BLOOD Comment: Test Performed by: [id number] Meter #: [id number] Ordering Provider: SILVIA REDDY Report Released Date/Time: Aug 21, 2024 01:55 AM Reporting Lab: [facility] #1 [facility] [address] Performing Lab: [facility] #1 [place] [address] GLUCOSE,BLOOD- poct (STL) 169 mg/dL H -Aug 20, 2024 04:36 PM [facility] GLUCOSE,BLOOD-poct (STL) Specimen Type: BLOOD Comment: Test Performed by: [id number] Meter #: [id number] Ordering Provider: SILVIA REDDY Report Released Date/Time: Aug 21, 2024 01:55 AM Reporting Lab: [facility] #1 [facility] [address] Performing Lab: [facility] #1 [facility] [address] GLUCOSE,BLOOD- poct (STL) 395 mg/dL H 72-Aug 20, 2024 11:45 AM [facility] GLUCOSE,BLOOD-poct (STL) Specimen Type: BLOOD Comment: Test Performed by: [id number] Meter #: [id number] Ordering Provider: SILVIA REDDY Report Released Date/Time: Aug 20, 2024 11:56 AM Reporting Lab: [facility] #1 [place] [address] Performing Lab: [facility] #1 [facility] [address] GLUCOSE,BLOOD- poct (STL) 169 mg/dL H -Aug 20, 2024 05:06 AM [facility] GLUCOSE,BLOOD-poct (STL) Specimen Type: BLOOD Comment: Test Performed by: [id number] Meter #: [id number] Ordering Provider: SILVIA REDDY Report Released Date/Time: Aug 20, 2024 06:05 AM Reporting Lab: [facility]1 [facility] [address] Performing Lab: [facility] #1 [facility] [address] GLUCOSE,BLOOD- poct (STL) 115 mg/dL H -Aug 19, 2024 04:23 PM [facility] GLUCOSE,BLOOD-poct (STL) Specimen Type: BLOOD Comment: Test Performed by: [id number] Meter #: [id number] Ordering Provider: SILVIA REDDY Report Released Date/Time: Aug 19, 2024 05:54 PM Reporting Lab: [facility]1 [facility] [address] Performing Lab: [facility]1 [facility] [address] GLUCOSE,BLOOD- poct (STL) 137 mg/dL H -Aug 19, 2024 11:28 AM [facility] GLUCOSE,BLOOD-poct (STL) Specimen Type: BLOOD Comment: Test Performed by: [id number] Meter #: [id number] Ordering Provider: SILVIA REDDY Report Released Date/Time: Aug 19, 2024 11:51 AM Reporting Lab: [facility]1 [facility] [address] Performing Lab: [facility] #1 [facility] [address] GLUCOSE,BLOOD- poct (STL) 190 mg/dL H Aug 19, 2024 05:21 AM [facility] GLUCOSE,BLOOD-poct (STL) Specimen Type: BLOOD Comment: Test Performed by: [id number] Meter #: [id number] Ordering Provider: SILVIA REDDY Report Released Date/Time: Aug 19, 2024 05:56 AM Reporting Lab: [facility] #1 [facility] [address] Performing Lab: [facility] #1 [facility] [address] GLUCOSE,BLOOD- poct (STL) 130 mg/dL H Aug 18, 2024 04:49 PM [facility] GLUCOSE,BLOOD-poct (STL) Specimen Type: BLOOD Comment: Test Performed by: [id number] Meter #: [id number] Ordering Provider: SILVIA REDDY Report Released Date/Time: Aug 18, 2024 05:01 PM Reporting Lab: [facility]1 [facility] [address] Performing Lab: [facility] #1 [facility] [address] GLUCOSE,BLOOD- poct (STL) 129 mg/dL H Aug 18, 2024 11:23 AM [facility] GLUCOSE,BLOOD-poct (STL) Specimen Type: BLOOD Comment: Test Performed by: [id number] Meter #: [id number] Ordering Provider: SILVIA REDDY Report Released Date/Time: Aug 18, 2024 11:41 AM Reporting Lab: [facility] #1 [facility] [address] Performing Lab: [facility] #1 [facility] [address] GLUCOSE,BLOOD- poct (STL) 180 mg/dL H Aug 18, 2024 05:08 AM [facility] GLUCOSE,BLOOD-poct (STL) Specimen Type: BLOOD Comment: Test Performed by: [id number] Meter #: [id number] Ordering Provider: SILVIA REDDY Report Released Date/Time: Aug 18, 2024 05:31 AM Reporting Lab: [facility]1 [facility] [address] Performing Lab: [facility] #1 [facility] [address] GLUCOSE,BLOOD- poct (STL) 127 mg/dL H -Aug 17, 2024 07:32 PM [facility] GLUCOSE,BLOOD-poct (STL) Specimen Type: BLOOD Comment: Test Performed by: [id number] Meter #: [id number] Ordering Provider: SILVIA REDDY Report Released Date/Time: Aug 17, 2024 07:59 PM Reporting Lab: [facility] #1 [facility] [address] Performing Lab: [facility] #1 [facility] [address] GLUCOSE,BLOOD- poct (STL) 154 mg/dL H -Aug 17, 2024 04:24 PM [facility] GLUCOSE,BLOOD-poct (STL) Specimen Type: BLOOD Comment: Test Performed by: [id number] Meter #: [id number] Ordering Provider: SILVIA REDDY Report Released Date/Time: Aug 17, 2024 04:35 PM Reporting Lab: [facility]1 [facility] [address] Performing Lab: [facility] #1 [facility] [address] GLUCOSE,BLOOD- poct (STL) 178 mg/dL H -Aug 17, 2024 05:09 AM [facility] GLUCOSE,BLOOD-poct (STL) Specimen Type: BLOOD Comment: Test Performed by: [id number] Meter #: [id number] Ordering Provider: SILVIA REDDY Report Released Date/Time: Aug 17, 2024 05:54 AM Reporting Lab: [facility] #1 [place] [address] Performing Lab: [facility]1 [facility] [address] GLUCOSE,BLOOD- poct (STL) 124 mg/dL H -Aug 16, 2024 07:40 PM [facility] GLUCOSE,BLOOD-poct (STL) Specimen Type: BLOOD Comment: Test Performed by: [id number] Meter #: [id number] Ordering Provider: SILVIA REDDY Report Released Date/Time: Aug 16, 2024 08:28 PM Reporting Lab: [facility]1 [facility] [address] Performing Lab: [facility] #1 [facility] [address] GLUCOSE,BLOOD- poct (STL) 144 mg/dL H Aug 16, 2024 04:19 PM [facility] GLUCOSE,BLOOD-poct (STL) Specimen Type: BLOOD Comment: Test Performed by: [id number] Meter #: [id number] Ordering Provider: SILVIA REDDY Report Released Date/Time: Aug 16, 2024 04:45 PM Reporting Lab: [facility]1 [facility] [address] Performing Lab: [facility] #1 [facility] [address] GLUCOSE,BLOOD- poct (STL) 138 mg/dL H Aug 16, 2024 11:52 AM [facility] GLUCOSE,BLOOD-poct (STL) Specimen Type: BLOOD Comment: Test Performed by: [id number] Meter #: [id number] Ordering Provider: SILVIA REDDY Report Released Date/Time: Aug 16, 2024 12:04 PM Reporting Lab: [facility]1 [facility] [address] Performing Lab: [facility] #1 [facility] [address] GLUCOSE,BLOOD- poct (STL) 135 mg/dL H Aug 16, 2024 05:24 AM [facility] GLUCOSE,BLOOD-poct (STL) Specimen Type: BLOOD Comment: Test Performed by: [id number] Meter #: [id number] Ordering Provider: SILVIA REDDY Report Released Date/Time: Aug 16, 2024 05:38 AM Reporting Lab: [facility]1 [facility] [address] Performing Lab: [facility] #1 [facility] [address] GLUCOSE,BLOOD- poct (STL) 151 mg/dL H Aug 15, 2024 07:31 PM [facility] GLUCOSE,BLOOD-poct (STL) Specimen Type: BLOOD Comment: Test Performed by: [id number] Meter #: [id number] Ordering Provider: SILVIA REDDY Report Released Date/Time: Aug 15, 2024 08:07 PM Reporting Lab: [facility]1 [facility] [address] Performing Lab: [facility] #1 [facility] [address] GLUCOSE,BLOOD- poct (STL) 173 mg/dL H Aug 15, 2024 04:18 PM [facility] GLUCOSE,BLOOD-poct (STL) Specimen Type: BLOOD Comment: Test Performed by: [id number] Meter #: [id number] Ordering Provider: SILVIA REDDY Report Released Date/Time: Aug 15, 2024 04:59 PM Reporting Lab: [facility]1 [facility] [address] Performing Lab: [facility] #1 [facility] [address] GLUCOSE,BLOOD- poct (STL) 136 mg/dL H Aug 15, 2024 04:16 PM [facility] GLUCOSE,BLOOD-poct (STL) Specimen Type: BLOOD Comment: Test Performed by: [id number] Meter #: [id number] Ordering Provider: SILVIA REDDY Report Released Date/Time: Aug 15, 2024 04:59 PM Reporting Lab: [facility]1 [facility] [address] Performing Lab: [facility] #1 [facility] [address] GLUCOSE,BLOOD- poct (STL) 194 mg/dL H -Aug 15, 2024 11:39 AM [facility] GLUCOSE,BLOOD-poct (STL) Specimen Type: BLOOD Comment: Test Performed by: [id number] Meter #: [id number] Ordering Provider: SILVIA REDDY Report Released Date/Time: Aug 15, 2024 12:00 PM Reporting Lab: [facility] #1 [facility] [address] Performing Lab: [facility] [address] GLUCOSE,BLOOD- poct (STL) 127 mg/dL H -Aug 15, 2024 05:07 AM [facility] GLUCOSE,BLOOD-poct (STL) Specimen Type: BLOOD Comment: Test Performed by: [id number] Meter #: [id number] Ordering Provider: SILVIA REDDY Report Released Date/Time: Aug 15, 2024 06:14 AM Reporting Lab: [facility] [address] Performing Lab: [facility]1 [facility] [address] GLUCOSE,BLOOD- poct (STL) 151 mg/dL H -Aug 14, 2024 04:22 PM [facility] GLUCOSE,BLOOD-poct (STL) Specimen Type: BLOOD Comment: Test Performed by: [id number] Meter #: [id number] Ordering Provider: SILVIA REDDY Report Released Date/Time: Aug 14, 2024 04:52 PM Reporting Lab: [facility] #[facility] [place] [address] Performing Lab: [facility] [address] GLUCOSE,BLOOD- poct (STL) 129 mg/dL H 72-99 Aug 14, 2024 11:21 AM [facility] GLUCOSE,BLOOD-poct (STL) Specimen Type: BLOOD Comment: Test Performed by: [id number] Meter #: [id number] Ordering Provider: SILVIA REDDY Report Released Date/Time: Aug 14, 2024 11:37 AM Reporting Lab: [facility]1 [facility] [address] Performing Lab: [facility] #1 [facility] [address] GLUCOSE,BLOOD- poct (STL) 135 mg/dL H 72-99 Aug 14, 2024 06:59 AM [facility] [...] For additional information, please refer to http://[email or web address] Eye-Q/faq/[email or web address] (This link is being provided for information/ educational purposes only.) Test Performed by [employer], [facility], [address] [place] [address] Tommie Garcia M.D., Ph.D., Director of Laboratories , [facility] [id number] Ordering Provider: SILVIA REDDY Report Released Date/Time: Aug 11, 2024 03:58 PM Reporting Lab: [facility] [address] [facility] [address] Performing Lab: [facility] [id number] [place] [id number] .NIL - QUANTIFERON 0.04 [IU]/mL .MITOGEN-NIL 0.39 [IU]/mL .QUANTIFERON INDETERMINATE NEGATIVE .TB1-NIL <0.00 [IU]/mL .TB2-NIL <0.00 [IU]/mL Aug 14, 2024 06:59 AM [facility] MAGNESIUM Specimen Type: PLASMA Comment: No hemolysis noted. Ordering Provider: SILVIA REDDY Report Released Date/Time: Aug 11, 2024 03:58 PM Reporting Lab: [facility] [address] Performing Lab: [facility] [address] MAGNESIUM 1.9 mg/dL 1.6-2.6 Aug 14, 2024 06:59 AM [facility] B12 Specimen Type: SERUM No comment entered. Ordering Provider: SILVIA REDDY Report Released Date/Time: Aug 11, 2024 03:58 PM Reporting Lab: [facility] [address] Performing Lab: [facility] [address] B12 757 pg/mL 213-816 Aug 14, 2024 06:59 AM [facility] FOLATE (STL-MA) Specimen Type: SERUM No comment entered. Ordering Provider: SILVIA REDDY Report Released Date/Time: Aug 11, 2024 03:58 PM Reporting Lab: [facility] [address] Performing Lab: [facility] [address] FOLATE (STL-MA) 6.8 ng/mL L 7-20 Aug 14, 2024 06:59 AM [facility] VITAMIN D, 25-HYDROXY Specimen Type: SERUM No comment entered. Ordering Provider: SILVIA REDDY Report Released Date/Time: Aug 11, 2024 03:58 PM Reporting Lab: [facility] [address] Performing Lab: [facility] [address] VITAMIN D, 25-HYDROXY 8.9 ng/mL L 30-96 Aug 14, 2024 06:59 AM [facility] COMPREHENSIVE METABOLIC PANEL Specimen Type: PLASMA Comment: No hemolysis noted. Ordering Provider: SILVIA REDDY Report Released Date/Time: Aug 11, 2024 03:58 PM Reporting Lab: [facility] [address] Performing Lab: [facility] [address] CREATININE 0.75 mg/dL 0.70-1.30 UREA NITROGEN 13.6 [...] Aug 11, 2024 03:58 PM Reporting Lab: [facility] [address] Performing Lab: [facility] [address] WBC 4.1 10*3/uL 3.6-11.2 RBC 3.20 10*6/uL [...] 10*3/uL 0.00-0.20 Aug 14, 2024 05:08 AM [facility] GLUCOSE,BLOOD-poct (STL) Specimen Type: BLOOD Comment: Test Performed by: [id number] Meter #: [id number] Ordering Provider: SILVIA REDDY Report Released Date/Time: Aug 14, 2024 05:52 AM Reporting Lab: [facility] [address] Performing Lab: [facility] [address] GLUCOSE,BLOOD- poct (STL) 135 mg/dL H 72-99 Aug 13, 2024 04:27 PM [facility] GLUCOSE,BLOOD-poct (STL) Specimen Type: BLOOD Comment: Test Performed by: [id number] Meter #: [id number] Ordering Provider: SILVIA REDDY Report Released Date/Time: Aug 13, 2024 04:41 PM Reporting Lab: [facility] [address] Performing Lab: [facility] [address] GLUCOSE,BLOOD- poct (STL) 181 mg/dL H -Aug 13, 2024 11:33 AM [facility] GLUCOSE,BLOOD-poct (STL) Specimen Type: BLOOD Comment: Test Performed by: [id number] Meter #: [id number] Ordering Provider: SILVIA REDDY Report Released Date/Time: Aug 13, 2024 03:55 PM Reporting Lab: [facility] [address] Performing Lab: [facility] [place] [address] GLUCOSE,BLOOD- poct (STL) 140 mg/dL H Aug 13, 2024 05:54 AM [facility] GLUCOSE,BLOOD-poct (STL) Specimen Type: BLOOD Comment: Test Performed by: [id number] Meter #: [id number] Ordering Provider: SILVIA REDDY Report Released Date/Time: Aug 13, 2024 06:20 AM Reporting Lab: [facility] [address] Performing Lab: [facility] [address] GLUCOSE,BLOOD- poct (STL) 112 mg/dL H Aug 12, 2024 04:35 PM [facility] GLUCOSE,BLOOD-poct (STL) Specimen Type: BLOOD Comment: Test Performed by: [id number] Meter #: [id number] Ordering Provider: SILVIA REDDY Report Released Date/Time: Aug 12, 2024 04:47 PM Reporting Lab: [facility] [address] Performing Lab: [facility] [address] GLUCOSE,BLOOD- poct (STL) 128 mg/dL H 72-99 Aug 12, 2024 11:26 AM [facility] GLUCOSE,BLOOD-poct (STL) Specimen Type: BLOOD Comment: Test Performed by: [id number] Meter #: [id number] Ordering Provider: SILVIA REDDY Report Released Date/Time: Aug 12, 2024 11:45 AM Reporting Lab: [facility] [address] Performing Lab: [facility] [address] GLUCOSE,BLOOD- poct (STL) 188 mg/dL H 72-Aug 12, 2024 06:13 AM [facility] GLUCOSE,BLOOD-poct (STL) Specimen Type: BLOOD Comment: Test Performed by: [id number] Meter #: [id number] Ordering Provider: SILVIA REDDY Report Released Date/Time: Aug 12, 2024 06:25 AM Reporting Lab: [facility] [address] Performing Lab: [facility] [address] GLUCOSE,BLOOD- poct (STL) 116 mg/dL H 72-99 Aug 11, 2024 04:10 PM [facility] GLUCOSE,BLOOD-poct (STL) Specimen Type: BLOOD Comment: Test Performed by: [id number] Meter #: [id number] Ordering Provider: SILVIA REDDY Report Released Date/Time: Aug 11, 2024 04:27 PM Reporting Lab: [facility] [place] [address] Performing Lab: [facility] [place] [address] GLUCOSE,BLOOD- poct (STL) 184 mg/dL H 72-99 Aug 11, 2024 01:44 PM [facility] MRSA SURVL NARES [...] 11, 2024 02:03 PM Reporting Lab: [address] [address] Performing Lab: [address] [address] MRSA SURVL NARES DNA Negative Negative Vital Signs: All taken on the encounter date This section contains inpatient and outpatient Vital Signs collected on the date of the Encounter. Date/Time Temperature Pulse Blood Pressure Respiratory Rate SP02 Pain Height Weight Body Mass Index Source Aug 21, 2024 10:00 PM 0 [facility] Aug 21, 2024 07:09 PM 98.5 81 130/72 18 96 [facility] Aug 21, 2024 04:35 PM 71 138/70 [facility] Aug 21, 2024 10:00 AM 97.7 62 104/65 18 96 0 [facility] Aug 21, 2024 09:43 AM 0 [facility] Advance Directives: [...] ERICK BARDALES [facility]
--- OUTSIDE RECORDS SUMMARY | 2024-11-17 04:07 | XMS_ITS ---
[place] DAILY HOSPITALIZATION DATA [facility] Encounter Summary Created on: November 16, 2024 CHET WALKER : 1950 Sex: Male Author Name [facility] [place] [facility] [place] Address [address] [place] [address] Care Team Providers Care On Air Announcer Name Role Phone MANUEL BAIRD Primary Care [...] PART A Apr 08, 2017 PART A [id number] [phone] ASHLEY WALKER PATIENT Selected Encounter This section includes the information on record at [place] for the Encounter. Date/Time Encounter Type Encounter Description Reason Pro vider Source Aug 21, 2024 06:18 PM Inpatient Visit DAILY HOSPITALIZATION DATA [facility] Encounter Template Text not used by [place] [...] AMBULATORY - SURGERY [facility] Sep 21, 2024 01:30 PM AMBULATORY - MEDICINE [facility] Sep 22, 2024 11:00 AM AMBULATORY - MEDICINE [facility] Sep 29, 2024 12:30 PM AMBULATORY - MEDICINE [facility] Oct 02, 2024 09:30 AM AMBULATORY - MEDICINE [facility] Nov 20, 2024 10:30 AM AMBULATORY - SURGERY [facility] Nov 21, 2024 10:00 AM AMBULATORY - NONE [facility] Dec 11, 2024 10:30 AM [...] [facility] Aug 17, 2024 03:47 PM Consult Order [facility] Cons Bedside [facility] Lab [...] Range Comment Aug 23, 2024 08:21 AM [facility] MAGNESIUM Specimen Type: PLASMA No comment entered. Ordering Provider: SILVIA REDDY Report Released Date/Time: Aug 22, 2024 11:26 AM Reporting Lab: [facility] [address] Performing Lab: [facility] [address] MAGNESIUM 1.8 mg/dL 1.6-2.6 Aug 23, 2024 08:21 AM [facility] CBC Specimen Type: BLOOD No comment entered. Ordering Provider: SILVIA REDDY Report Released Date/Time: Aug 22, 2024 11:19 AM Reporting Lab: [facility] [address] Performing Lab: [facility] [address] WBC 4.0 10*3/uL 3.6-11.2 RBC 3.65 10*6/uL [...] 10*3/uL 0.00-0.20 Aug 23, 2024 05:12 AM [facility] GLUCOSE,BLOOD-poct (STL) Specimen Type: BLOOD Comment: Test Performed by: [id number] Meter #: [id number] Ordering Provider: SILVIA REDDY Report Released Date/Time: Aug 23, 2024 05:23 AM Reporting Lab: [facility] [address] Performing Lab: [facility] [address] [facility] [address] GLUCOSE,BLOOD- poct (STL) 99 mg/dL 72-99 Aug 23, 2024 02:45 AM [facility] OCCULT BLOOD FIT X1 SCREEN Specimen Type: FECES No comment entered. Ordering Provider: SILVIA REDDY Report Released Date/Time: Aug 22, 2024 11:23 AM Reporting Lab: [address] [address] Performing Lab: [address] [address] OCCULT BLOOD (FIT) #1 OF 1 Negative Negative Aug 22, 2024 07:30 PM [facility] OCCULT BLOOD FIT X1 SCREEN Specimen Type: FECES No comment entered. Ordering Provider: SILVIA REDDY Report Released Date/Time: Aug 22, 2024 11:23 AM Reporting Lab: [address] [address] Performing Lab: [address] [address] OCCULT BLOOD (FIT) #1 OF 1 Negative Negative Aug 22, 2024 06:15 PM [facility] OCCULT BLOOD FIT X1 SCREEN Specimen Type: FECES No comment entered. Ordering Provider: SILVIA REDDY Report Released Date/Time: Aug 22, 2024 11:23 AM Reporting Lab: [address] [address] Performing Lab: [facility] [address] [facility] [address] OCCULT BLOOD (FIT) #1 OF 1 Negative Negative Aug 22, 2024 04:24 PM [facility] GLUCOSE,BLOOD-poct (STL) Specimen Type: BLOOD Comment: Test Performed by: [id number] Meter #: [id number] Ordering Provider: SILVIA REDDY Report Released Date/Time: Aug 22, 2024 04:36 PM Reporting Lab: [facility] [address] Performing Lab: [facility] [address] [facility] [address] GLUCOSE,BLOOD- poct (STL) 176 mg/dL H -Aug 22, 2024 04:23 PM [facility] GLUCOSE,BLOOD-poct (STL) Specimen Type: BLOOD Comment: Test Performed by: [id number] Meter #: [id number] Ordering Provider: SILVIA REDDY Report Released Date/Time: Aug 22, 2024 04:36 PM Reporting Lab: [facility] [address] Performing Lab: [facility] [address] GLUCOSE,BLOOD- poct (STL) 221 mg/dL H 72-Aug 22, 2024 11:15 AM [facility] GLUCOSE,BLOOD-poct (STL) Specimen Type: BLOOD Comment: Test Performed by: [id number] Meter #: [id number] Ordering Provider: SILVIA REDDY Report Released Date/Time: Aug 22, 2024 11:27 AM Reporting Lab: [facility] [address] Performing Lab: [facility] [address] GLUCOSE,BLOOD- poct (STL) 140 mg/dL H 72-Aug 22, 2024 08:03 AM [facility] FERRITIN Specimen Type: SERUM No comment entered. Ordering Provider: JUDIT PERKINS Report Released Date/Time: Aug 18, 2024 11:01 AM Reporting Lab: [facility] [address] [facility] [address] Performing Lab: [facility] [address] [facility] [address] FERRITIN 79.50 ng/mL 22-275 Aug 22, 2024 08:03 AM [facility] B12 Specimen Type: SERUM No comment entered. Ordering Provider: JUDIT PERKINS Report Released Date/Time: Aug 18, 2024 11:01 AM Reporting Lab: [facility] [address] [facility] [address] Performing Lab: [facility] [address] [facility] [address] B12 631 pg/mL 213-816 Aug 22, 2024 08:03 AM [facility] IRON/TIBC PROFILE Specimen Type: SERUM No comment entered. Ordering Provider: JUDIT PERKINS Report Released Date/Time: Aug 18, 2024 11:01 AM Reporting Lab: [place] [address] [facility] [address] Performing Lab: [address] [address] TIBC 283 ug/dL 250-450 TRANSFERRIN 226 mg/dL 163-344 IRON SATURATION 7 L 20-50 IRON 19 ug/dL L 65-175 Aug 22, 2024 08:03 AM [facility] COMPREHENSIVE METABOLIC PANEL Specimen Type: PLASMA Comment: No hemolysis noted. Ordering Provider: SILVIA REDDY Report Released Date/Time: Aug 17, 2024 01:18 PM Reporting Lab: [facility] [address] [facility] [address] Performing Lab: [address] [address] CREATININE 0.80 mg/dL 0.7-1.3 UREA NITROGEN 9.7 [...] 94.0 >60 Aug 22, 2024 08:03 AM [facility] CBC Specimen Type: BLOOD No comment entered. Ordering Provider: SILVIA REDDY Report Released Date/Time: Aug 17, 2024 01:18 PM Reporting Lab: [facility] [address] Performing Lab: [facility] [address] WBC 3.5 10*3/uL L 3.6-11.2 RBC 3.23 [...] NRBC% 0 Aug 22, 2024 05:03 AM [facility] GLUCOSE,BLOOD-poct (STL) Specimen Type: BLOOD Comment: Test Performed by: [id number] Meter #: [id number] Ordering Provider: SILVIA REDDY Report Released Date/Time: Aug 22, 2024 06:17 AM Reporting Lab: [facility] [facility] [address] Performing Lab: [facility] [address] [facility] [address] GLUCOSE,BLOOD- poct (STL) 170 mg/dL H 72-Aug 21, 2024 04:32 PM [facility] GLUCOSE,BLOOD-poct (STL) Specimen Type: BLOOD Comment: Test Performed by: [id number] Meter #: [id number] Ordering Provider: SILVIA REDDY Report Released Date/Time: Aug 21, 2024 04:49 PM Reporting Lab: [facility] [address] Performing Lab: [facility] [address] [facility] [address] GLUCOSE,BLOOD- poct (STL) 169 mg/dL H -99 Aug 21, 2024 11:53 AM [facility] GLUCOSE,BLOOD-poct (STL) Specimen Type: BLOOD Comment: Test Performed by: [id number] Meter #: [id number] Ordering Provider: SILVIA REDDY Report Released Date/Time: Aug 21, 2024 12:11 PM Reporting Lab: [facility] [address] [facility] [address] Performing Lab: [facility] [address] GLUCOSE,BLOOD- poct (STL) 149 mg/dL H 72-99 Aug 21, 2024 05:10 AM [facility] GLUCOSE,BLOOD-poct (STL) Specimen Type: BLOOD Comment: Test Performed by: [id number] Meter #: [id number] Ordering Provider: SILVIA REDDY Report Released Date/Time: Aug 21, 2024 05:27 AM Reporting Lab: [facility] [place] [address] Performing Lab: [facility] [address] [place] [id number] GLUCOSE,BLOOD- poct (STL) 118 mg/dL H 72-99 Aug 20, 2024 04:38 PM [facility] GLUCOSE,BLOOD-poct (STL) Specimen Type: BLOOD Comment: Test Performed by: [id number] Meter #: [id number] Ordering Provider: SILVIA REDDY Report Released Date/Time: Aug 21, 2024 01:55 AM Reporting Lab: [facility] [address] [place] [address] Performing Lab: [facility] [address] [place] [address] GLUCOSE,BLOOD- poct (STL) 169 mg/dL H 72-Aug 20, 2024 04:36 PM [facility] GLUCOSE,BLOOD-poct (STL) Specimen Type: BLOOD Comment: Test Performed by: [id number] Meter #: [id number] Ordering Provider: SILVIA REDDY Report Released Date/Time: Aug 21, 2024 01:55 AM Reporting Lab: [facility] [place] [address] Performing Lab: [facility] [place] [address] GLUCOSE,BLOOD- poct (STL) 395 mg/dL H 72-99 Aug 20, 2024 11:45 AM [facility] GLUCOSE,BLOOD-poct (STL) Specimen Type: BLOOD Comment: Test Performed by: [id number] Meter #: [id number] Ordering Provider: SILVIA REDDY Report Released Date/Time: Aug 20, 2024 11:56 AM Reporting Lab: [facility] [address] Performing Lab: [facility] [address] [facility] [address] GLUCOSE,BLOOD- poct (STL) 169 mg/dL H 72-Aug 20, 2024 05:06 AM [facility] GLUCOSE,BLOOD-poct (STL) Specimen Type: BLOOD Comment: Test Performed by: [id number] Meter #: [id number] Ordering Provider: SILVIA REDDY Report Released Date/Time: Aug 20, 2024 06:05 AM Reporting Lab: [facility] [address] [facility] [address] Performing Lab: [facility] [address] [facility] [address] GLUCOSE,BLOOD- poct (STL) 115 mg/dL H 72-Aug 19, 2024 04:23 PM [facility] GLUCOSE,BLOOD-poct (STL) Specimen Type: BLOOD Comment: Test Performed by: [id number] Meter #: [id number] Ordering Provider: SILVIA REDDY Report Released Date/Time: Aug 19, 2024 05:54 PM Reporting Lab: [facility] [address] [facility] [address] Performing Lab: [facility] [address] [facility] [address] GLUCOSE,BLOOD- poct (STL) 137 mg/dL H 72-99 Aug 19, 2024 11:28 AM [facility] GLUCOSE,BLOOD-poct (STL) Specimen Type: BLOOD Comment: Test Performed by: [id number] Meter #: [id number] Ordering Provider: SILVIA REDDY Report Released Date/Time: Aug 19, 2024 11:51 AM Reporting Lab: [facility] [address] [facility] [address] Performing Lab: [facility] [address] [facility] [address] GLUCOSE,BLOOD- poct (STL) 190 mg/dL H 72-99 Aug 19, 2024 05:21 AM [facility] GLUCOSE,BLOOD-poct (STL) Specimen Type: BLOOD Comment: Test Performed by: [id number] Meter #: [id number] Ordering Provider: SILVIA REDDY Report Released Date/Time: Aug 19, 2024 05:56 AM Reporting Lab: [facility] [facility] [address] Performing Lab: [facility] [address] [facility] [address] GLUCOSE,BLOOD- poct (STL) 130 mg/dL H Aug 18, 2024 04:49 PM [facility] GLUCOSE,BLOOD-poct (STL) Specimen Type: BLOOD Comment: Test Performed by: [id number] Meter #: [id number] Ordering Provider: SILVIA REDDY Report Released Date/Time: Aug 18, 2024 05:01 PM Reporting Lab: [facility] [address] Performing Lab: [facility] [address] [facility] [address] GLUCOSE,BLOOD- poct (STL) 129 mg/dL H Aug 18, 2024 11:23 AM [facility] GLUCOSE,BLOOD-poct (STL) Specimen Type: BLOOD Comment: Test Performed by: [id number] Meter #: [id number] Ordering Provider: SILVIA REDDY Report Released Date/Time: Aug 18, 2024 11:41 AM Reporting Lab: [facility] [address] [facility] [address] Performing Lab: [facility] [address] [facility] [address] GLUCOSE,BLOOD- poct (STL) 180 mg/dL H Aug 18, 2024 05:08 AM [facility] GLUCOSE,BLOOD-poct (STL) Specimen Type: BLOOD Comment: Test Performed by: [id number] Meter #: [id number] Ordering Provider: SILVIA REDDY Report Released Date/Time: Aug 18, 2024 05:31 AM Reporting Lab: [facility] [place] [address] Performing Lab: [facility] [address] [facility] [address] GLUCOSE,BLOOD- poct (STL) 127 mg/dL H -Aug 17, 2024 07:32 PM [facility] GLUCOSE,BLOOD-poct (STL) Specimen Type: BLOOD Comment: Test Performed by: [id number] Meter #: [id number] Ordering Provider: SILVIA REDDY Report Released Date/Time: Aug 17, 2024 07:59 PM Reporting Lab: [facility] [address] [place] [address] Performing Lab: [facility] [address] [place] [address] GLUCOSE,BLOOD- poct (STL) 154 mg/dL H -Aug 17, 2024 04:24 PM [facility] GLUCOSE,BLOOD-poct (STL) Specimen Type: BLOOD Comment: Test Performed by: [id number] Meter #: [id number] Ordering Provider: SILVIA REDDY Report Released Date/Time: Aug 17, 2024 04:35 PM Reporting Lab: [facility] [place] [address] Performing Lab: [facility] [place] [address] GLUCOSE,BLOOD- poct (STL) 178 mg/dL H -Aug 17, 2024 05:09 AM [facility] GLUCOSE,BLOOD-poct (STL) Specimen Type: BLOOD Comment: Test Performed by: [id number] Meter #: [id number] Ordering Provider: SILVIA REDDY Report Released Date/Time: Aug 17, 2024 05:54 AM Reporting Lab: [facility] [address] Performing Lab: [facility] [address] [facility] [address] GLUCOSE,BLOOD- poct (STL) 124 mg/dL H 72-Aug 16, 2024 07:40 PM [facility] GLUCOSE,BLOOD-poct (STL) Specimen Type: BLOOD Comment: Test Performed by: [id number] Meter #: [id number] Ordering Provider: SILVIA REDDY Report Released Date/Time: Aug 16, 2024 08:28 PM Reporting Lab: [facility] [facility] [address] Performing Lab: [facility] [facility] [address] GLUCOSE,BLOOD- poct (STL) 144 mg/dL H -Aug 16, 2024 04:19 PM [facility] GLUCOSE,BLOOD-poct (STL) Specimen Type: BLOOD Comment: Test Performed by: [id number] Meter #: [id number] Ordering Provider: SILVIA REDDY Report Released Date/Time: Aug 16, 2024 04:45 PM Reporting Lab: [facility] [facility] [address] Performing Lab: [facility] [facility] [address] GLUCOSE,BLOOD- poct (STL) 138 mg/dL H 72-Aug 16, 2024 11:52 AM [facility] GLUCOSE,BLOOD-poct (STL) Specimen Type: BLOOD Comment: Test Performed by: [id number] Meter #: [id number] Ordering Provider: SILVIA REDDY Report Released Date/Time: Aug 16, 2024 12:04 PM Reporting Lab: [facility] [facility] [address] Performing Lab: [facility] [facility] [address] GLUCOSE,BLOOD- poct (STL) 135 mg/dL H 72-99 Aug 16, 2024 05:24 AM [facility] GLUCOSE,BLOOD-poct (STL) Specimen Type: BLOOD Comment: Test Performed by: [id number] Meter #: [id number] Ordering Provider: SILVIA REDDY Report Released Date/Time: Aug 16, 2024 05:38 AM Reporting Lab: [facility] [address] Performing Lab: [facility] [facility] [address] GLUCOSE,BLOOD- poct (STL) 151 mg/dL H Aug 15, 2024 07:31 PM [facility] GLUCOSE,BLOOD-poct (STL) Specimen Type: BLOOD Comment: Test Performed by: [id number] Meter #: [id number] Ordering Provider: SILVIA REDDY Report Released Date/Time: Aug 15, 2024 08:07 PM Reporting Lab: [facility] [address] Performing Lab: [facility] [address] GLUCOSE,BLOOD- poct (STL) 173 mg/dL H Aug 15, 2024 04:18 PM [facility] GLUCOSE,BLOOD-poct (STL) Specimen Type: BLOOD Comment: Test Performed by: [id number] Meter #: [id number] Ordering Provider: SILVIA REDDY Report Released Date/Time: Aug 15, 2024 04:59 PM Reporting Lab: [facility] [address] Performing Lab: [facility] [facility] [address] GLUCOSE,BLOOD- poct (STL) 136 mg/dL H Aug 15, 2024 04:16 PM [facility] GLUCOSE,BLOOD-poct (STL) Specimen Type: BLOOD Comment: Test Performed by: [id number] Meter #: [id number] Ordering Provider: SILVIA REDDY Report Released Date/Time: Aug 15, 2024 04:59 PM Reporting Lab: [facility] [address] [place] [address] Performing Lab: [facility] [facility] [address] GLUCOSE,BLOOD- poct (STL) 194 mg/dL H 72-Aug 15, 2024 11:39 AM [facility] GLUCOSE,BLOOD-poct (STL) Specimen Type: BLOOD Comment: Test Performed by: [id number] Meter #: [id number] Ordering Provider: SILVIA REDDY Report Released Date/Time: Aug 15, 2024 12:00 PM Reporting Lab: [facility] [place] [address] Performing Lab: [facility] [place] [address] GLUCOSE,BLOOD- poct (STL) 127 mg/dL H -Aug 15, 2024 05:07 AM [facility] GLUCOSE,BLOOD-poct (STL) Specimen Type: BLOOD Comment: Test Performed by: [id number] Meter #: [id number] Ordering Provider: SILVIA REDDY Report Released Date/Time: Aug 15, 2024 06:14 AM Reporting Lab: [facility] [place] [address] Performing Lab: [facility] [place] [address] GLUCOSE,BLOOD- poct (STL) 151 mg/dL H -Aug 14, 2024 04:22 PM [facility] GLUCOSE,BLOOD-poct (STL) Specimen Type: BLOOD Comment: Test Performed by: [id number] Meter #: [id number] Ordering Provider: SILVIA REDDY Report Released Date/Time: Aug 14, 2024 04:52 PM Reporting Lab: [facility] [address] Performing Lab: [facility] [address] GLUCOSE,BLOOD- poct (STL) 129 mg/dL H 72-99 Aug 14, 2024 11:21 AM [facility] GLUCOSE,BLOOD-poct (STL) Specimen Type: BLOOD Comment: Test Performed by: [id number] Meter #: [id number] Ordering Provider: SILVIA REDDY Report Released Date/Time: Aug 14, 2024 11:37 AM Reporting Lab: [facility] [address] Performing Lab: [facility] [address] GLUCOSE,BLOOD- poct (STL) 135 mg/dL H 72-Aug 14, 2024 06:59 AM [facility] QUANTIFERON-TB,4 TUBE Specimen Type: BLOOD Comment: [...] For additional information, please refer to http://education. [employer]/faq/YBD654 (This link is being provided for information/ educational purposes only.) Test Performed by [employer], [employer] [facility], [address] [place] [address] Tommie Garcia M.D., Ph.D., Director of Laboratories , [facility] [id number] Ordering Provider: SILVIA REDDY Report Released Date/Time: Aug 11, 2024 03:58 PM Reporting Lab: [facility] [address] [facility] [address] Performing Lab: [facility] [id number] [place] [address] .NIL - QUANTIFERON 0.04 [IU]/mL .MITOGEN-NIL 0.39 [IU]/mL .QUANTIFERON INDETERMINATE NEGATIVE .TB1-NIL <0.00 [IU]/mL .TB2-NIL <0.00 [IU]/mL Aug 14, 2024 06:59 AM [facility] MAGNESIUM Specimen Type: PLASMA Comment: No hemolysis noted. Ordering Provider: SILVIA REDDY Report Released Date/Time: Aug 11, 2024 03:58 PM Reporting Lab: [facility] [place] [id number] Performing Lab: [facility] [facility] [address] MAGNESIUM 1.9 mg/dL 1.6-2.6 Aug 14, 2024 06:59 AM [facility] B12 Specimen Type: SERUM No comment entered. Ordering Provider: SILVIA REDDY Report Released Date/Time: Aug 11, 2024 03:58 PM Reporting Lab: [facility] [address] Performing Lab: [facility] [address] B12 757 pg/mL 213-816 Aug 14, 2024 06:59 AM [facility] FOLATE (STL-MA) Specimen Type: SERUM No comment entered. Ordering Provider: SILVIA REDDY Report Released Date/Time: Aug 11, 2024 03:58 PM Reporting Lab: [facility] [address] Performing Lab: [facility] [address] FOLATE (STL-MA) 6.8 ng/mL L 7-20 Aug 14, 2024 06:59 AM [facility] VITAMIN D, 25-HYDROXY Specimen Type: SERUM No comment entered. Ordering Provider: SILVIA REDDY Report Released Date/Time: Aug 11, 2024 03:58 PM Reporting Lab: [facility] [address] Performing Lab: [facility] [address] [facility] [address] VITAMIN D, 25-HYDROXY 8.9 ng/mL L 30-96 Aug 14, 2024 06:59 AM [facility] CBC Specimen Type: BLOOD No comment entered. Ordering Provider: SILVIA REDDY Report Released Date/Time: Aug 11, 2024 03:58 PM Reporting Lab: [facility] [address] Performing Lab: [facility] [address] WBC 4.1 10*3/uL 3.6-11.2 RBC 3.20 10*6/uL [...] 10*3/uL 0.00-0.20 Aug 14, 2024 06:59 AM [facility] COMPREHENSIVE METABOLIC PANEL Specimen Type: PLASMA Comment: No hemolysis noted. Ordering Provider: SILVIA REDDY Report Released Date/Time: Aug 11, 2024 03:58 PM Reporting Lab: [facility] [address] Performing Lab: [facility] [place] [phone] CREATININE 0.75 mg/dL 0.70-1.30 UREA NITROGEN 13.6 [...] 95.88 >60 Aug 14, 2024 05:08 AM [facility] GLUCOSE,BLOOD-poct (STL) Specimen Type: BLOOD Comment: Test Performed by: [id number] Meter #: [id number] Ordering Provider: SILVIA REDDY Report Released Date/Time: Aug 14, 2024 05:52 AM Reporting Lab: [facility] [id number] Performing Lab: [facility] [id number] GLUCOSE,BLOOD- poct (STL) 135 mg/dL H 72-99 Aug 13, 2024 04:27 PM [facility] GLUCOSE,BLOOD-poct (STL) Specimen Type: BLOOD Comment: Test Performed by: [id number] Meter #: [id number] Ordering Provider: SILVIA RDEDY Report Released Date/Time: Aug 13, 2024 04:41 PM Reporting Lab: [facility] [address] Performing Lab: [facility] [address] GLUCOSE,BLOOD- poct (STL) 181 mg/dL H -Aug 13, 2024 11:33 AM [facility] GLUCOSE,BLOOD-poct (STL) Specimen Type: BLOOD Comment: Test Performed by: [id number] Meter #: [id number] Ordering Provider: SILVIA REDDY Report Released Date/Time: Aug 13, 2024 03:55 PM Reporting Lab: [facility] [address] Performing Lab: [facility] [place] [address] GLUCOSE,BLOOD- poct (STL) 140 mg/dL H Aug 13, 2024 05:54 AM [facility] GLUCOSE,BLOOD-poct (STL) Specimen Type: BLOOD Comment: Test Performed by: [id number] Meter #: [id number] Ordering Provider: SILVIA REDDY Report Released Date/Time: Aug 13, 2024 06:20 AM Reporting Lab: [facility] [address] Performing Lab: [facility] [address] GLUCOSE,BLOOD- poct (STL) 112 mg/dL H Aug 12, 2024 04:35 PM [facility] GLUCOSE,BLOOD-poct (STL) Specimen Type: BLOOD Comment: Test Performed by: [id number] Meter #: [id number] Ordering Provider: SILVIA REDDY Report Released Date/Time: Aug 12, 2024 04:47 PM Reporting Lab: [facility] [address] Performing Lab: [facility] [address] GLUCOSE,BLOOD- poct (STL) 128 mg/dL H 72-99 Aug 12, 2024 11:26 AM [facility] GLUCOSE,BLOOD-poct (STL) Specimen Type: BLOOD Comment: Test Performed by: [id number] Meter #: [id number] Ordering Provider: SILVIA REDDY Report Released Date/Time: Aug 12, 2024 11:45 AM Reporting Lab: [facility] [address] Performing Lab: [facility] [place] [address] GLUCOSE,BLOOD- poct (STL) 188 mg/dL H -Aug 12, 2024 06:13 AM [facility] GLUCOSE,BLOOD-poct (STL) Specimen Type: BLOOD Comment: Test Performed by: [id number] Meter #: [id number] Ordering Provider: SILVIA REDDY Report Released Date/Time: Aug 12, 2024 06:25 AM Reporting Lab: [facility] [address] Performing Lab: [facility] [address] GLUCOSE,BLOOD- poct (STL) 116 mg/dL H 72-99 Aug 11, 2024 04:10 PM [facility] GLUCOSE,BLOOD-poct (STL) Specimen Type: BLOOD Comment: Test Performed by: [id number] Meter #: [id number] Ordering Provider: SILVIA REDDY Report Released Date/Time: Aug 11, 2024 04:27 PM Reporting Lab: [facility] [place] [address] Performing Lab: [facility] [address] GLUCOSE,BLOOD- poct (STL) 184 mg/dL H 72-99 Aug 11, 2024 01:44 PM [facility] MRSA SURVL NARES DNA Specimen Type: [...] Aug 11, 2024 02:03 PM Reporting Lab: [address] [address] Performing Lab: [address] [id number] MRSA SURVL NARES DNA Negative Negative Vital Signs: All taken on the encounter date This section contains inpatient and outpatient Vital Signs collected on the date of the Encounter. Date/Time Temperature Pulse Blood Pressure Respiratory Rate SP02 Pain Height Weight Body Mass Index Source Aug 21, 2024 10:00 PM 0 [facility] Aug 21, 2024 07:09 PM 98.5 81 130/72 18 96 [facility] Aug 21, 2024 04:35 PM 71 138/70 [facility] Aug 21, 2024 10:00 AM 97.7 62 104/65 18 96 0 [facility] Aug 21, 2024 09:43 AM 0 [facility] Advance Directives: All [...] ADVANCE DIRECTIVE DISCUSSION ERICK BARDALES [facility]
--- OUTSIDE RECORDS SUMMARY | 2024-11-17 04:07 | XMS_ITS ---
MD DAILY HOSPITALIZATION DATA [facility] Encounter Summary Created on: November 16, 2024 CHET WALKER : 1950 Sex: Male Author Name [facility] Organization [facility] Address [address] [place] [address] Care Team Providers Care Nurse Name Role Phone MANUEL BAIRD Primary Care [...] PART A Apr 08, 2017 PART A [id number] [phone] ASHLEY WALKER PATIENT Selected Encounter This section includes the information on record at MD for the Encounter. Date/Time Encounter Type Encounter Description Reason Pro vider Source Aug 21, 2024 06:13 PM Inpatient Visit DAILY HOSPITALIZATION DATA [facility] Encounter Template Text not used by MD [...] 20 appointments. The data comes from all [facility]. Appointment Date/Time Appointment Type Appointme nt Facility Name Aug 24, 2024 10:00 AM AMBULATORY - MEDICINE [facility] Aug 24, 2024 10:30 AM AMBULATORY - MEDICINE [facility] Aug 30, 2024 09:30 AM AMBULATORY MEDICINE [facility] Aug 31, 2024 01:00 PM AMBULATORY - SURGERY [facility] Sep 21, 2024 01:30 PM AMBULATORY - MEDICINE [facility] Sep 22, 2024 11:00 AM AMBULATORY - MEDICINE [facility] Sep 29, 2024 12:30 PM AMBULATORY - MEDICINE [facility] Oct 02, 2024 09:30 AM AMBULATORY - MEDICINE [facility] Nov 20, 2024 10:30 AM AMBULATORY - SURGERY [facility] Nov 21, 2024 10:00 AM AMBULATORY - NONE [facility] Dec 11, 2024 10:30 AM AMBULATORY - [...] of theEncounter. The data comes from all [facility]. Test Date/Time Test Type Test Details Facility Name Aug 02, 2024 12:00 AM Laboratory - Chemistry Order CBC BLOOD STAT SP [facility] Aug 02, 2024 12:00 AM Laboratory - Chemistry Order COMPREHENSIVE METABOLIC PANEL GREEN LI/HEP BLD/PLAS PLASMA SP [facility] Aug 17, 2024 03:47 PM Consult Order [facility] Cons Bedside [facility] Lab Results: +/- 30 days of the [...] Range Comment Aug 23, 2024 08:21 AM [facility] MAGNESIUM Specimen Type: PLASMA No comment entered. Ordering Provider: SILVIA REDDY Report Released Date/Time: Aug 22, 2024 11:26 AM Reporting Lab: [facility] [address] Performing Lab: [facility] [address] MAGNESIUM 1.8 mg/dL 1.6-2.6 Aug 23, 2024 08:21 AM [facility] CBC Specimen Type: BLOOD No comment entered. Ordering Provider: SILVIA REDDY Report Released Date/Time: Aug 22, 2024 11:19 AM Reporting Lab: [facility] [address] Performing Lab: [facility] [address] WBC 4.0 10*3/uL 3.6-11.2 RBC 3.65 10*6/uL [...] 10*3/uL 0.00-0.20 Aug 23, 2024 05:12 AM [facility] GLUCOSE,BLOOD-poct (STL) Specimen Type: BLOOD Comment: Test Performed by: [id number] Meter #: [id number] Ordering Provider: SILVIA REDDY Report Released Date/Time: Aug 23, 2024 05:23 AM Reporting Lab: [facility] [address] Performing Lab: [facility] [address] GLUCOSE,BLOOD- poct (STL) 99 mg/dL 72-99 Aug 23, 2024 02:45 AM [facility] OCCULT BLOOD FIT X1 SCREEN Specimen Type: FECES No comment entered. Ordering Provider: SILVIA REDDY Report Released Date/Time: Aug 22, 2024 11:23 AM Reporting Lab: [address] [address] Performing Lab: [address] [address] OCCULT BLOOD (FIT) #1 OF 1 Negative Negative Aug 22, 2024 07:30 PM [facility] OCCULT BLOOD FIT X1 SCREEN Specimen Type: FECES No comment entered. Ordering Provider: SILVIA REDDY Report Released Date/Time: Aug 22, 2024 11:23 AM Reporting Lab: [address] [address] Performing Lab: [address] [address] OCCULT BLOOD (FIT) #1 OF 1 Negative Negative Aug 22, 2024 06:15 PM [facility] OCCULT BLOOD FIT X1 SCREEN Specimen Type: FECES No comment entered. Ordering Provider: SILVIA REDDY Report Released Date/Time: Aug 22, 2024 11:23 AM Reporting Lab: [address] [address] Performing Lab: [facility] [address] [facility] [address] OCCULT BLOOD (FIT) #1 OF 1 Negative Negative Aug 22, 2024 04:24 PM [facility] GLUCOSE,BLOOD-poct (STL) Specimen Type: BLOOD Comment: Test Performed by: [id number] Meter #: [id number] Ordering Provider: SILVIA REDDY Report Released Date/Time: Aug 22, 2024 04:36 PM Reporting Lab: [facility] [address] Performing Lab: [facility] [address] GLUCOSE,BLOOD- poct (STL) 176 mg/dL H -Aug 22, 2024 04:23 PM [facility] GLUCOSE,BLOOD-poct (STL) Specimen Type: BLOOD Comment: Test Performed by: [id number] Meter #: [id number] Ordering Provider: SILVIA REDDY Report Released Date/Time: Aug 22, 2024 04:36 PM Reporting Lab: [facility] [address] Performing Lab: [facility] [address] GLUCOSE,BLOOD- poct (STL) 221 mg/dL H 72-Aug 22, 2024 11:15 AM [facility] GLUCOSE,BLOOD-poct (STL) Specimen Type: BLOOD Comment: Test Performed by: [id number] Meter #: [id number] Ordering Provider: SILVIA REDDY Report Released Date/Time: Aug 22, 2024 11:27 AM Reporting Lab: [facility] [address] Performing Lab: [facility] [address] GLUCOSE,BLOOD- poct (STL) 140 mg/dL H 72-Aug 22, 2024 08:03 AM [facility] FERRITIN Specimen Type: SERUM No comment entered. Ordering Provider: JUDIT PERKINS Report Released Date/Time: Aug 18, 2024 11:01 AM Reporting Lab: [facility] [address] [facility] [address] Performing Lab: [facility] [address] [facility] [address] FERRITIN 79.50 ng/mL 22-275 Aug 22, 2024 08:03 AM [facility] IRON/TIBC PROFILE Specimen Type: SERUM No comment entered. Ordering Provider: JUDIT PERKINS Report Released Date/Time: Aug 18, 2024 11:01 AM Reporting Lab: [address] [address] Performing Lab: [address] [address] TIBC 283 ug/dL 250-450 TRANSFERRIN 226 mg/dL 163-344 IRON SATURATION 7 L 20-50 IRON 19 ug/dL L 65-175 Aug 22, 2024 08:03 AM [facility] B12 Specimen Type: SERUM No comment entered. Ordering Provider: JUDIT PERKINS Report Released Date/Time: Aug 18, 2024 11:01 AM Reporting Lab: [facility] [address] Performing Lab: [facility] [address] B12 631 pg/mL 213-816 Aug 22, 2024 08:03 AM [facility] COMPREHENSIVE METABOLIC PANEL Specimen Type: PLASMA Comment: No hemolysis noted. Ordering Provider: SILVIA REDDY Report Released Date/Time: Aug 17, 2024 01:18 PM Reporting Lab: [facility] [address] [facility] [address] Performing Lab: [address] [address] CREATININE 0.80 mg/dL 0.7-1.3 UREA NITROGEN 9.7 [...] PM Reporting Lab: [facility] [address] Performing Lab: [facility] [address] WBC 3.5 10*3/uL L 3.6-11.2 RBC 3.23 [...] NRBC% 0 Aug 22, 2024 05:03 AM [facility] GLUCOSE,BLOOD-poct (STL) Specimen Type: BLOOD Comment: Test Performed by: [id number] Meter #: [id number] Ordering Provider: SILVIA REDDY Report Released Date/Time: Aug 22, 2024 06:17 AM Reporting Lab: [facility] [address] Performing Lab: [facility] [address] GLUCOSE,BLOOD- poct (STL) 170 mg/dL H 72-Aug 21, 2024 04:32 PM [facility] GLUCOSE,BLOOD-poct (STL) Specimen Type: BLOOD Comment: Test Performed by: [id number] Meter #: [id number] Ordering Provider: SILVIA REDDY Report Released Date/Time: Aug 21, 2024 04:49 PM Reporting Lab: [facility] [address] Performing Lab: [facility] [address] GLUCOSE,BLOOD- poct (STL) 169 mg/dL H -99 Aug 21, 2024 11:53 AM [facility] GLUCOSE,BLOOD-poct (STL) Specimen Type: BLOOD Comment: Test Performed by: [id number] Meter #: [id number] Ordering Provider: SILVIA REDDY Report Released Date/Time: Aug 21, 2024 12:11 PM Reporting Lab: [facility] [address] Performing Lab: [facility] [address] GLUCOSE,BLOOD- poct (STL) 149 mg/dL H 72-99 Aug 21, 2024 05:10 AM [facility] GLUCOSE,BLOOD-poct (STL) Specimen Type: BLOOD Comment: Test Performed by: [id number] Meter #: [id number] Ordering Provider: SILVIA REDDY Report Released Date/Time: Aug 21, 2024 05:27 AM Reporting Lab: [facility] [place] [address] Performing Lab: [facility] [place] [phone] GLUCOSE,BLOOD- poct (STL) 118 mg/dL H 72-99 Aug 20, 2024 04:38 PM [facility] GLUCOSE,BLOOD-poct (STL) Specimen Type: BLOOD Comment: Test Performed by: [id number] Meter #: [id number] Ordering Provider: SILVIA REDDY Report Released Date/Time: Aug 21, 2024 01:55 AM Reporting Lab: [facility] [place] [address] Performing Lab: [facility] [place] [address] GLUCOSE,BLOOD- poct (STL) 169 mg/dL H 72-Aug 20, 2024 04:36 PM [facility] GLUCOSE,BLOOD-poct (STL) Specimen Type: BLOOD Comment: Test Performed by: [id number] Meter #: [id number] Ordering Provider: SILVIA REDDY Report Released Date/Time: Aug 21, 2024 01:55 AM Reporting Lab: [facility] [place] [address] Performing Lab: [facility] [place] [address] GLUCOSE,BLOOD- poct (STL) 395 mg/dL H 72-99 Aug 20, 2024 11:45 AM [facility] GLUCOSE,BLOOD-poct (STL) Specimen Type: BLOOD Comment: Test Performed by: [id number] Meter #: [id number] Ordering Provider: SILVIA REDDY Report Released Date/Time: Aug 20, 2024 11:56 AM Reporting Lab: [facility] [address] Performing Lab: [facility] [address] GLUCOSE,BLOOD- poct (STL) 169 mg/dL H 72-Aug 20, 2024 05:06 AM [facility] GLUCOSE,BLOOD-poct (STL) Specimen Type: BLOOD Comment: Test Performed by: [id number] Meter #: [id number] Ordering Provider: SILVIA REDDY Report Released Date/Time: Aug 20, 2024 06:05 AM Reporting Lab: [facility] [address] Performing Lab: [facility] [address] GLUCOSE,BLOOD- poct (STL) 115 mg/dL H 72-Aug 19, 2024 04:23 PM [facility] GLUCOSE,BLOOD-poct (STL) Specimen Type: BLOOD Comment: Test Performed by: [id number] Meter #: [id number] Ordering Provider: SILVIA REDDY Report Released Date/Time: Aug 19, 2024 05:54 PM Reporting Lab: [facility] [address] Performing Lab: [facility] [address] GLUCOSE,BLOOD- poct (STL) 137 mg/dL H 72-99 Aug 19, 2024 11:28 AM [facility] GLUCOSE,BLOOD-poct (STL) Specimen Type: BLOOD Comment: Test Performed by: [id number] Meter #: [id number] Ordering Provider: SILVIA REDDY Report Released Date/Time: Aug 19, 2024 11:51 AM Reporting Lab: [facility] [address] Performing Lab: [facility] [address] GLUCOSE,BLOOD- poct (STL) 190 mg/dL H 72-99 Aug 19, 2024 05:21 AM [facility] GLUCOSE,BLOOD-poct (STL) Specimen Type: BLOOD Comment: Test Performed by: [id number] Meter #: [id number] Ordering Provider: SILVIA REDDY Report Released Date/Time: Aug 19, 2024 05:56 AM Reporting Lab: [facility] [address] Performing Lab: [facility] [address] GLUCOSE,BLOOD- poct (STL) 130 mg/dL H Aug 18, 2024 04:49 PM [facility] GLUCOSE,BLOOD-poct (STL) Specimen Type: BLOOD Comment: Test Performed by: [id number] Meter #: [id number] Ordering Provider: SILVIA REDDY Report Released Date/Time: Aug 18, 2024 05:01 PM Reporting Lab: [facility] [address] Performing Lab: [facility] [address] GLUCOSE,BLOOD- poct (STL) 129 mg/dL H Aug 18, 2024 11:23 AM [facility] GLUCOSE,BLOOD-poct (STL) Specimen Type: BLOOD Comment: Test Performed by: [id number] Meter #: [id number] Ordering Provider: SILVIA REDDY Report Released Date/Time: Aug 18, 2024 11:41 AM Reporting Lab: [facility] [address] Performing Lab: [facility] [address] GLUCOSE,BLOOD- poct (STL) 180 mg/dL H Aug 18, 2024 05:08 AM [facility] GLUCOSE,BLOOD-poct (STL) Specimen Type: BLOOD Comment: Test Performed by: [id number] Meter #: [id number] Ordering Provider: SILVIA REDDY Report Released Date/Time: Aug 18, 2024 05:31 AM Reporting Lab: [facility] [place] [address] Performing Lab: [facility] [address] GLUCOSE,BLOOD- poct (STL) 127 mg/dL H -Aug 17, 2024 07:32 PM [facility] GLUCOSE,BLOOD-poct (STL) Specimen Type: BLOOD Comment: Test Performed by: [id number] Meter #: [id number] Ordering Provider: SILVIA REDDY Report Released Date/Time: Aug 17, 2024 07:59 PM Reporting Lab: [facility] [place] [address] Performing Lab: [facility] [place] [address] GLUCOSE,BLOOD- poct (STL) 154 mg/dL H -Aug 17, 2024 04:24 PM [facility] GLUCOSE,BLOOD-poct (STL) Specimen Type: BLOOD Comment: Test Performed by: [id number] Meter #: [id number] Ordering Provider: SILVIA REDDY Report Released Date/Time: Aug 17, 2024 04:35 PM Reporting Lab: [facility] [place] [address] Performing Lab: [facility] [place] [address] GLUCOSE,BLOOD- poct (STL) 178 mg/dL H -Aug 17, 2024 05:09 AM [facility] GLUCOSE,BLOOD-poct (STL) Specimen Type: BLOOD Comment: Test Performed by: [id number] Meter #: [id number] Ordering Provider: SILVIA REDDY Report Released Date/Time: Aug 17, 2024 05:54 AM Reporting Lab: [facility] [address] Performing Lab: [facility] [address] GLUCOSE,BLOOD- poct (STL) 124 mg/dL H 72-Aug 16, 2024 07:40 PM [facility] GLUCOSE,BLOOD-poct (STL) Specimen Type: BLOOD Comment: Test Performed by: [id number] Meter #: [id number] Ordering Provider: SILVIA REDDY Report Released Date/Time: Aug 16, 2024 08:28 PM Reporting Lab: [facility] [address] Performing Lab: [facility] [address] GLUCOSE,BLOOD- poct (STL) 144 mg/dL H -Aug 16, 2024 04:19 PM [facility] GLUCOSE,BLOOD-poct (STL) Specimen Type: BLOOD Comment: Test Performed by: [id number] Meter #: [id number] Ordering Provider: SILVIA REDDY Report Released Date/Time: Aug 16, 2024 04:45 PM Reporting Lab: [facility] [address] Performing Lab: [facility] [address] GLUCOSE,BLOOD- poct (STL) 138 mg/dL H 72-Aug 16, 2024 11:52 AM [facility] GLUCOSE,BLOOD-poct (STL) Specimen Type: BLOOD Comment: Test Performed by: [id number] Meter #: [id number] Ordering Provider: SILVIA REDDY Report Released Date/Time: Aug 16, 2024 12:04 PM Reporting Lab: [facility] [address] Performing Lab: [facility] [address] GLUCOSE,BLOOD- poct (STL) 135 mg/dL H 72-99 Aug 16, 2024 05:24 AM [facility] GLUCOSE,BLOOD-poct (STL) Specimen Type: BLOOD Comment: Test Performed by: [id number] Meter #: [id number] Ordering Provider: SILVIA REDDY Report Released Date/Time: Aug 16, 2024 05:38 AM Reporting Lab: [facility] [address] Performing Lab: [facility] [address] GLUCOSE,BLOOD- poct (STL) 151 mg/dL H Aug 15, 2024 07:31 PM [facility] GLUCOSE,BLOOD-poct (STL) Specimen Type: BLOOD Comment: Test Performed by: [id number] Meter #: [id number] Ordering Provider: SILVIA REDDY Report Released Date/Time: Aug 15, 2024 08:07 PM Reporting Lab: [facility] [address] Performing Lab: [facility] [address] GLUCOSE,BLOOD- poct (STL) 173 mg/dL H Aug 15, 2024 04:18 PM [facility] GLUCOSE,BLOOD-poct (STL) Specimen Type: BLOOD Comment: Test Performed by: [id number] Meter #: [id number] Ordering Provider: SILVIA REDDY Report Released Date/Time: Aug 15, 2024 04:59 PM Reporting Lab: [facility] [address] Performing Lab: [facility] [address] GLUCOSE,BLOOD- poct (STL) 136 mg/dL H Aug 15, 2024 04:16 PM [facility] GLUCOSE,BLOOD-poct (STL) Specimen Type: BLOOD Comment: Test Performed by: [id number] Meter #: [id number] Ordering Provider: SILVIA REDDY Report Released Date/Time: Aug 15, 2024 04:59 PM Reporting Lab: [facility] [place] [address] Performing Lab: [facility] [address] GLUCOSE,BLOOD- poct (STL) 194 mg/dL H 72-Aug 15, 2024 11:39 AM [facility] GLUCOSE,BLOOD-poct (STL) Specimen Type: BLOOD Comment: Test Performed by: [id number] Meter #: [id number] Ordering Provider: SILVIA REDDY Report Released Date/Time: Aug 15, 2024 12:00 PM Reporting Lab: [facility] [place] [address] Performing Lab: [facility] [place] [address] GLUCOSE,BLOOD- poct (STL) 127 mg/dL H -Aug 15, 2024 05:07 AM [facility] GLUCOSE,BLOOD-poct (STL) Specimen Type: BLOOD Comment: Test Performed by: [id number] Meter #: [id number] Ordering Provider: SILVIA REDDY Report Released Date/Time: Aug 15, 2024 06:14 AM Reporting Lab: [facility] [place] [address] Performing Lab: [facility] [place] [address] GLUCOSE,BLOOD- poct (STL) 151 mg/dL H -Aug 14, 2024 04:22 PM [facility] GLUCOSE,BLOOD-poct (STL) Specimen Type: BLOOD Comment: Test Performed by: [id number] Meter #: [id number] Ordering Provider: SILVIA REDDY Report Released Date/Time: Aug 14, 2024 04:52 PM Reporting Lab: [facility] [address] Performing Lab: [facility] [address] GLUCOSE,BLOOD- poct (STL) 129 mg/dL H 72-99 Aug 14, 2024 11:21 AM [facility] GLUCOSE,BLOOD-poct (STL) Specimen Type: BLOOD Comment: Test Performed by: [id number] Meter #: [id number] Ordering Provider: SILVIA REDDY Report Released Date/Time: Aug 14, 2024 11:37 AM Reporting Lab: [facility] [address] Performing Lab: [facility] [address] GLUCOSE,BLOOD- poct (STL) 135 mg/dL H 72-Aug 14, 2024 06:59 AM [facility] QUANTIFERON-TB,4 TUBE Specimen Type: BLOOD [...] For additional information, please refer to http://[email or web address] [employer]/faq/UVP257 (This link is being provided for information/ educational purposes only.) Test Performed by [employer] [facility], [address] [place] [address] Tommie Garcia M.D., Ph.D., Director of Laboratories , [facility] [id number] Ordering Provider: SILVIA REDDY Report Released Date/Time: Aug 11, 2024 03:58 PM Reporting Lab: [facility] [address] [facility] [address] Performing Lab: [facility] [id number] [place] [address] .NIL - QUANTIFERON 0.04 [IU]/mL .MITOGEN-NIL 0.39 [IU]/mL .QUANTIFERON INDETERMINATE NEGATIVE .TB1-NIL <0.00 [IU]/mL .TB2-NIL <0.00 [IU]/mL Aug 14, 2024 06:59 AM [facility] MAGNESIUM Specimen Type: PLASMA Comment: No hemolysis noted. Ordering Provider: SILVIA REDDY Report Released Date/Time: Aug 11, 2024 03:58 PM Reporting Lab: [facility] [address] Performing Lab: [facility] [address] MAGNESIUM 1.9 mg/dL 1.6-2.6 Aug 14, 2024 06:59 AM [facility] B12 Specimen Type: SERUM No comment entered. Ordering Provider: SILVIA REDDY Report Released Date/Time: Aug 11, 2024 03:58 PM Reporting Lab: [facility] [address] Performing Lab: [facility] [address] B12 757 pg/mL 213-816 Aug 14, 2024 06:59 AM [facility] VITAMIN D, 25-HYDROXY Specimen Type: SERUM No comment entered. Ordering Provider: SILVIA REDDY Report Released Date/Time: Aug 11, 2024 03:58 PM Reporting Lab: [facility] [address] Performing Lab: [facility] [address] VITAMIN D, 25-HYDROXY 8.9 ng/mL L 30-96 Aug 14, 2024 06:59 AM [facility] FOLATE (STL-MA) Specimen Type: SERUM No comment entered. Ordering Provider: SILVIA REDDY Report Released Date/Time: Aug 11, 2024 03:58 PM Reporting Lab: [facility] [address] Performing Lab: [facility] [address] FOLATE (L-NM) 6.8 ng/mL L 7-20 Aug 14, 2024 06:59 AM [facility] CBC Specimen Type: BLOOD No comment entered. Ordering Provider: SILVIA REDDY Report Released Date/Time: Aug 11, 2024 03:58 PM Reporting Lab: [facility] [address] Performing Lab: [facility] [address] WBC 4.1 10*3/uL 3.6-11.2 RBC 3.20 10*6/uL [...] 10*3/uL 0.00-0.20 Aug 14, 2024 06:59 AM [facility] COMPREHENSIVE METABOLIC PANEL Specimen Type: PLASMA Comment: No hemolysis noted. Ordering Provider: SILVIA REDDY Report Released Date/Time: Aug 11, 2024 03:58 PM Reporting Lab: [facility] [address] Performing Lab: [facility] [place] [phone] CREATININE 0.75 mg/dL 0.70-1.30 UREA NITROGEN 13.6 [...] 95.88 >60 Aug 14, 2024 05:08 AM [facility] GLUCOSE,BLOOD-poct (STL) Specimen Type: BLOOD Comment: Test Performed by: [id number] Meter #: [id number] Ordering Provider: SILVIA REDDY Report Released Date/Time: Aug 14, 2024 05:52 AM Reporting Lab: [facility] [id number] Performing Lab: [facility] [address] GLUCOSE,BLOOD- poct (STL) 135 mg/dL H 72-99 Aug 13, 2024 04:27 PM [facility] GLUCOSE,BLOOD-poct (STL) Specimen Type: BLOOD Comment: Test Performed by: [id number] Meter #: [id number] Ordering Provider: SILVIA REDDY Report Released Date/Time: Aug 13, 2024 04:41 PM Reporting Lab: [facility] [id number] Performing Lab: [facility] [address] GLUCOSE,BLOOD- poct (STL) 181 mg/dL H -Aug 13, 2024 11:33 AM [facility] GLUCOSE,BLOOD-poct (STL) Specimen Type: BLOOD Comment: Test Performed by: [id number] Meter #: [id number] Ordering Provider: SILVIA REDDY Report Released Date/Time: Aug 13, 2024 03:55 PM Reporting Lab: [facility] [address] Performing Lab: [facility] [place] [address] GLUCOSE,BLOOD- poct (STL) 140 mg/dL H Aug 13, 2024 05:54 AM [facility] GLUCOSE,BLOOD-poct (STL) Specimen Type: BLOOD Comment: Test Performed by: [id number] Meter #: [id number] Ordering Provider: SILVIA REDDY Report Released Date/Time: Aug 13, 2024 06:20 AM Reporting Lab: [facility] [id number] Performing Lab: [facility] [address] GLUCOSE,BLOOD- poct (STL) 112 mg/dL H Aug 12, 2024 04:35 PM [facility] GLUCOSE,BLOOD-poct (STL) Specimen Type: BLOOD Comment: Test Performed by: [id number] Meter #: [id number] Ordering Provider: SILVIA REDDY Report Released Date/Time: Aug 12, 2024 04:47 PM Reporting Lab: [facility] [id number] Performing Lab: [facility] [id number] GLUCOSE,BLOOD- poct (STL) 128 mg/dL H 72-99 Aug 12, 2024 11:26 AM [facility] GLUCOSE,BLOOD-poct (STL) Specimen Type: BLOOD Comment: Test Performed by: [id number] Meter #: [id number] Ordering Provider: SILVIA REDDY Report Released Date/Time: Aug 12, 2024 11:45 AM Reporting Lab: [facility] [id number] Performing Lab: [facility] [address] [place] [address] GLUCOSE,BLOOD- poct (STL) 188 mg/dL H -Aug 12, 2024 06:13 AM [facility] GLUCOSE,BLOOD-poct (STL) Specimen Type: BLOOD Comment: Test Performed by: [id number] Meter #: [id number] Ordering Provider: SILVIA REDDY Report Released Date/Time: Aug 12, 2024 06:25 AM Reporting Lab: [facility] [id number] Performing Lab: [facility] [address] GLUCOSE,BLOOD- poct (STL) 116 mg/dL H 72-99 Aug 11, 2024 04:10 PM [facility] GLUCOSE,BLOOD-poct (STL) Specimen Type: BLOOD Comment: Test Performed by: [id number] Meter #: [id number] Ordering Provider: SILVIA REDDY Report Released Date/Time: Aug 11, 2024 04:27 PM Reporting Lab: [facility] [place] [address] Performing Lab: [facility] [address] GLUCOSE,BLOOD- poct (STL) 184 mg/dL H 72-99 Aug 11, 2024 01:44 PM [facility] MRSA SURVL NARES DNA Specimen [...] Aug 11, 2024 02:03 PM Reporting Lab: [address] [address] Performing Lab: [address] [address] MRSA SURVL NARES DNA Negative Negative Vital Signs: All taken on the encounter date This section contains inpatient and outpatient Vital Signs collected on the date of the Encounter. Date/Time Temperature Pulse Blood Pressure Respiratory Rate SP02 Pain Height Weight Body Mass Index Source Aug 21, 2024 10:00 PM 0 [facility] Aug 21, 2024 07:09 PM 98.5 81 130/72 18 96 [facility] Aug 21, 2024 04:35 PM 71 138/70 [facility] Aug 21, 2024 10:00 AM 97.7 62 104/65 18 96 0 [facility] Aug 21, 2024 09:43 AM 0 [facility] Advance Directives: All historical and [...] ADVANCE DIRECTIVE DISCUSSION [facility]
--- OUTSIDE RECORDS SUMMARY | 2024-11-17 04:07 | XMS_ITS ---
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 Date/Time Encounter Type Encounter Description Reason Pro vider Source Aug 21, 2024 11:42 PM Inpatient Visit DAILY HOSPITALIZATION DATA [facility]AR[facility] [...] appointments. The data comes from all [facility]. Appointment Date/Time Appointment Type Appointme nt Facility Name Aug 24, 2024 10:00 AM AMBULATORY - MEDICINE [facility] Aug 24, 2024 10:30 AM AMBULATORY - MEDICINE [facility] Aug 30, 2024 09:30 AM AMBULATORY MEDICINE [facility] Aug 31, 2024 01:00 PM AMBULATORY - SURGERY [facility] Sep 21, 2024 01:30 PM AMBULATORY - MEDICINE [facility] Sep 22, 2024 11:00 AM AMBULATORY - MEDICINE [facility] Sep 29, 2024 12:30 PM AMBULATORY - MEDICINE [facility] Oct 02, 2024 09:30 AM AMBULATORY - MEDICINE [facility] Nov 20, 2024 10:30 AM AMBULATORY - SUR[facility]ERY [facility] Nov 21, 2024 10:00 AM AMBULATORY - NONE [facility] Dec 11, 2024 10:30 AM AMBULATORY - MEDICINE [facility] Active, Pending, and Scheduled Orders This section includes a listing of several types of active, pending, and scheduled orders, including clinic medications orders, diagnostic test orders, procedure orders and consult orders; where the start date of the order is 45 days before the date of the Encounter or 45 days after the date of theEncounter. The data comes from all [facility]. Test Date/Time Test Type Test Details Facility Name Aug 02, 2024 12:00 AM Laboratory - Chemistry Order CBC BLOOD STAT SP [facility] Aug 02, 2024 12:00 AM Laboratory - Chemistry Order COMPREHENSIVE METABOLIC PANEL GREEN LI/HEP BLD/PLAS PLASMA SP [facility] Aug 17, 2024 03:47 PM Consult Order [facility] SK[facility] Cons Bedside [facility] Lab Results: +/- 30 [...] Range Comment Aug 23, 2024 08:21 AM [facility] MAGNESIUM Specimen Type: PLASMA No comment entered. Ordering Provider: SILVIA REDDY Report Released Date/Time: Aug 22, 2024 11:26 AM Reporting Lab: [facility] [address] Performing Lab: [facility] [address] MAGNESIUM 1.8 mg/dL 1.6-2.6 Aug 23, 2024 08:21 AM [facility] CBC Specimen Type: BLOOD No comment entered. Ordering Provider: SILVIA REDDY Report Released Date/Time: Aug 22, 2024 11:19 AM Reporting Lab: [facility] [address] Performing Lab: [facility] [address] WBC 4.0 10*3/uL 3.6-11.2 RBC 3.65 10*6/uL [...] 10*3/uL 0.00-0.20 Aug 23, 2024 05:12 AM [facility] GLUCOSE,BLOOD-poct (STL) Specimen Type: BLOOD Comment: Test Performed by: [id number] Meter #: [id number] Ordering Provider: SILVIA REDDY Report Released Date/Time: Aug 23, 2024 05:23 AM Reporting Lab: [facility] [address] Performing Lab: [facility] [address] GLUCOSE,BLOOD- poct (STL) 99 mg/dL 72-99 Aug 23, 2024 02:45 AM [facility] OCCULT BLOOD FIT X1 SCREEN Specimen Type: FECES No comment entered. Ordering Provider: SILVIA REDDY Report Released Date/Time: Aug 22, 2024 11:23 AM Reporting Lab: [address] [address] Performing Lab: [address] [address] OCCULT BLOOD (FIT) #1 OF 1 Negative Negative Aug 22, 2024 07:30 PM [facility] OCCULT BLOOD FIT X1 SCREEN Specimen Type: FECES No comment entered. Ordering Provider: SILVIA REDDY Report Released Date/Time: Aug 22, 2024 11:23 AM Reporting Lab: [address] [address] Performing Lab: [address] [address] OCCULT BLOOD (FIT) #1 OF 1 Negative Negative Aug 22, 2024 06:15 PM [facility] OCCULT BLOOD FIT X1 SCREEN Specimen Type: FECES No comment entered. Ordering Provider: SILVIA REDDY Report Released Date/Time: Aug 22, 2024 11:23 AM Reporting Lab: [address] [address] Performing Lab: [place] [address] [facility] [address] OCCULT BLOOD (FIT) #1 OF 1 Negative Negative Aug 22, 2024 04:24 PM [facility] GLUCOSE,BLOOD-poct (STL) Specimen Type: BLOOD Comment: Test Performed by: [id number] Meter #: [id number] Ordering Provider: SILVIA REDDY Report Released Date/Time: Aug 22, 2024 04:36 PM Reporting Lab: [facility] [address] Performing Lab: [facility] [address] GLUCOSE,BLOOD- poct (STL) 176 mg/dL H -Aug 22, 2024 04:23 PM [facility] GLUCOSE,BLOOD-poct (STL) Specimen Type: BLOOD Comment: Test Performed by: [id number] Meter #: [id number] Ordering Provider: SILVIA REDDY Report Released Date/Time: Aug 22, 2024 04:36 PM Reporting Lab: [facility] [address] Performing Lab: [facility] [address] GLUCOSE,BLOOD- poct (STL) 221 mg/dL H 72-Aug 22, 2024 11:15 AM [facility] GLUCOSE,BLOOD-poct (STL) Specimen Type: BLOOD Comment: Test Performed by: [id number] Meter #: [id number] Ordering Provider: SILVIA REDDY Report Released Date/Time: Aug 22, 2024 11:27 AM Reporting Lab: [facility] [address] Performing Lab: [facility] [address] GLUCOSE,BLOOD- poct (STL) 140 mg/dL H 72-Aug 22, 2024 08:[address] [facility] FERRITIN Specimen Type: SERUM No comment entered. Ordering Provider: JUDIT PERKINS Report Released Date/Time: Aug 18, 2024 11:01 AM Reporting Lab: [facility] [address] [facility] [address] Performing Lab: [facility] [address] [facility] [address] FERRITIN 79.50 ng/mL 22-275 Aug 22, 2024 08:03 AM [facility] B12 Specimen Type: SERUM No comment entered. Ordering Provider: JUDIT PERKINS Report Released Date/Time: Aug 18, 2024 11:01 AM Reporting Lab: [facility] [address] Performing Lab: [facility] [address] B12 631 pg/mL 213-816 Aug 22, 2024 08:03 AM [facility] IRON/TIBC PROFILE Specimen Type: SERUM No comment entered. Ordering Provider: JUDIT PERKINS Report Released Date/Time: Aug 18, 2024 11:01 AM Reporting Lab: [place] [id number] [facility] [address] Performing Lab: [facility] [address] [place] [address] TIBC 283 ug/dL 250-450 TRANSFERRIN 226 mg/dL 163-344 IRON SATURATION 7 L 20-50 IRON 19 ug/dL L 65-175 Aug 22, 2024 08:03 AM [facility] COMPREHENSIVE METABOLIC PANEL Specimen Type: PLASMA Comment: No hemolysis noted. Ordering Provider: SILVIA REDDY Report Released Date/Time: Aug 17, 2024 01:18 PM Reporting Lab: [facility] [address] [facility] [address] Performing Lab: [address] [address] CREATININE 0.80 mg/dL 0.7-1.3 UREA NITROGEN 9.7 [...] >60 Aug 22, 2024 08:03 AM [facility] CBC Specimen Type: BLOOD No comment entered. Ordering Provider: SILVIA REDDY Report Released Date/Time: Aug 17, 2024 01:18 PM Reporting Lab: [facility] [address] Performing Lab: [facility] [address] WBC 3.5 10*3/uL L 3.6-11.2 RBC 3.23 [...] NRBC% 0 Aug 22, 2024 05:03 AM [facility] GLUCOSE,BLOOD-poct (STL) Specimen Type: BLOOD Comment: Test Performed by: [id number] Meter #: [id number] Ordering Provider: SILVIA REDDY Report Released Date/Time: Aug 22, 2024 06:17 AM Reporting Lab: [facility] [address] Performing Lab: [facility] [address] GLUCOSE,BLOOD- poct (STL) 170 mg/dL H 72-Aug 21, 2024 04:32 PM [facility] GLUCOSE,BLOOD-poct (STL) Specimen Type: BLOOD Comment: Test Performed by: [id number] Meter #: [id number] Ordering Provider: SILVIA REDDY Report Released Date/Time: Aug 21, 2024 04:49 PM Reporting Lab: [facility] [address] Performing Lab: [facility] [address] GLUCOSE,BLOOD- poct (STL) 169 mg/dL H -Aug 21, 2024 11:53 AM [facility] GLUCOSE,BLOOD-poct (STL) Specimen Type: BLOOD Comment: Test Performed by: [id number] Meter #: [id number] Ordering Provider: SILVIA REDDY Report Released Date/Time: Aug 21, 2024 12:11 PM Reporting Lab: [facility] [address] Performing Lab: [facility] [address] GLUCOSE,BLOOD- poct (STL) 149 mg/dL H 72-Aug 21, 2024 05:10 AM [facility] GLUCOSE,BLOOD-poct (STL) Specimen Type: BLOOD Comment: Test Performed by: [id number] Meter #: [id number] Ordering Provider: SILVIA REDDY Report Released Date/Time: Aug 21, 2024 05:27 AM Reporting Lab: [facility] [address] Performing Lab: [facility] [address] GLUCOSE,BLOOD- poct (STL) 118 mg/dL H 72-Aug 20, 2024 04:38 PM [facility] GLUCOSE,BLOOD-poct (STL) Specimen Type: BLOOD Comment: Test Performed by: [id number] Meter #: [id number] Ordering Provider: SILVIA REDDY Report Released Date/Time: Aug 21, 2024 01:55 AM Reporting Lab: [facility] [address] Performing Lab: [facility] [address] [place] [address] GLUCOSE,BLOOD- poct (STL) 169 mg/dL H -Aug 20, 2024 04:36 PM [facility] GLUCOSE,BLOOD-poct (STL) Specimen Type: BLOOD Comment: Test Performed by: [id number] Meter #: [id number] Ordering Provider: SILVIA REDDY Report Released Date/Time: Aug 21, 2024 01:55 AM Reporting Lab: [facility] [address] Performing Lab: [facility] [address] GLUCOSE,BLOOD- poct (STL) 395 mg/dL H 72-Aug 20, 2024 11:45 AM [facility] GLUCOSE,BLOOD-poct (STL) Specimen Type: BLOOD Comment: Test Performed by: [id number] Meter #: [id number] Ordering Provider: SILVIA REDDY Report Released Date/Time: Aug 20, 2024 11:56 AM Reporting Lab: [facility] [place] [address] Performing Lab: [facility] [address] GLUCOSE,BLOOD- poct (STL) 169 mg/dL H -Aug 20, 2024 05:06 AM [facility] GLUCOSE,BLOOD-poct (STL) Specimen Type: BLOOD Comment: Test Performed by: [id number] Meter #: [id number] Ordering Provider: SILVIA REDDY Report Released Date/Time: Aug 20, 2024 06:05 AM Reporting Lab: [facility] [address] Performing Lab: [facility] [address] GLUCOSE,BLOOD- poct (STL) 115 mg/dL H -Aug 19, 2024 04:23 PM [facility] GLUCOSE,BLOOD-poct (STL) Specimen Type: BLOOD Comment: Test Performed by: [id number] Meter #: [id number] Ordering Provider: SILVIA REDDY Report Released Date/Time: Aug 19, 2024 05:54 PM Reporting Lab: [facility] [address] Performing Lab: [facility] [address] GLUCOSE,BLOOD- poct (STL) 137 mg/dL H -Aug 19, 2024 11:28 AM [facility] GLUCOSE,BLOOD-poct (STL) Specimen Type: BLOOD Comment: Test Performed by: [id number] Meter #: [id number] Ordering Provider: SILVIA REDDY Report Released Date/Time: Aug 19, 2024 11:51 AM Reporting Lab: [facility] [address] Performing Lab: [facility] [address] GLUCOSE,BLOOD- poct (STL) 190 mg/dL H Aug 19, 2024 05:21 AM [facility] GLUCOSE,BLOOD-poct (STL) Specimen Type: BLOOD Comment: Test Performed by: [id number] Meter #: [id number] Ordering Provider: SILVIA REDDY Report Released Date/Time: Aug 19, 2024 05:56 AM Reporting Lab: [facility] [address] Performing Lab: [facility] [address] GLUCOSE,BLOOD- poct (STL) 130 mg/dL H Aug 18, 2024 04:49 PM [facility] GLUCOSE,BLOOD-poct (STL) Specimen Type: BLOOD Comment: Test Performed by: [id number] Meter #: [id number] Ordering Provider: SILVIA REDDY Report Released Date/Time: Aug 18, 2024 05:01 PM Reporting Lab: [facility] [address] Performing Lab: [facility] [address] GLUCOSE,BLOOD- poct (STL) 129 mg/dL H Aug 18, 2024 11:23 AM [facility] GLUCOSE,BLOOD-poct (STL) Specimen Type: BLOOD Comment: Test Performed by: [id number] Meter #: [id number] Ordering Provider: SILVIA REDDY Report Released Date/Time: Aug 18, 2024 11:41 AM Reporting Lab: [facility] [address] Performing Lab: [facility] [address] GLUCOSE,BLOOD- poct (STL) 180 mg/dL H Aug 18, 2024 05:08 AM [facility] GLUCOSE,BLOOD-poct (STL) Specimen Type: BLOOD Comment: Test Performed by: [id number] Meter #: [id number] Ordering Provider: SILVIA REDDY Report Released Date/Time: Aug 18, 2024 05:31 AM Reporting Lab: [facility] [address] Performing Lab: [facility] [address] GLUCOSE,BLOOD- poct (STL) 127 mg/dL H -Aug 17, 2024 07:32 PM [facility] GLUCOSE,BLOOD-poct (STL) Specimen Type: BLOOD Comment: Test Performed by: [id number] Meter #: [id number] Ordering Provider: SILVIA REDDY Report Released Date/Time: Aug 17, 2024 07:59 PM Reporting Lab: [facility] [address] Performing Lab: [facility] [address] GLUCOSE,BLOOD- poct (STL) 154 mg/dL H -Aug 17, 2024 04:24 PM [facility] GLUCOSE,BLOOD-poct (STL) Specimen Type: BLOOD Comment: Test Performed by: [id number] Meter #: [id number] Ordering Provider: SILVIA REDDY Report Released Date/Time: Aug 17, 2024 04:35 PM Reporting Lab: [facility] [address] Performing Lab: [facility] [address] GLUCOSE,BLOOD- poct (STL) 178 mg/dL H -Aug 17, 2024 05:09 AM [facility] GLUCOSE,BLOOD-poct (STL) Specimen Type: BLOOD Comment: Test Performed by: [id number] Meter #: [id number] Ordering Provider: SILVIA REDDY Report Released Date/Time: Aug 17, 2024 05:54 AM Reporting Lab: [facility] [place] [address] Performing Lab: [facility] [address] GLUCOSE,BLOOD- poct (STL) 124 mg/dL H -Aug 16, 2024 07:40 PM [facility] GLUCOSE,BLOOD-poct (STL) Specimen Type: BLOOD Comment: Test Performed by: [id number] Meter #: [id number] Ordering Provider: SILVIA REDDY Report Released Date/Time: Aug 16, 2024 08:28 PM Reporting Lab: [facility] [address] Performing Lab: [facility] [address] GLUCOSE,BLOOD- poct (STL) 144 mg/dL H Aug 16, 2024 04:19 PM [facility] GLUCOSE,BLOOD-poct (STL) Specimen Type: BLOOD Comment: Test Performed by: [id number] Meter #: [id number] Ordering Provider: SILVIA REDDY Report Released Date/Time: Aug 16, 2024 04:45 PM Reporting Lab: [facility] [address] Performing Lab: [facility] [address] GLUCOSE,BLOOD- poct (STL) 138 mg/dL H Aug 16, 2024 11:52 AM [facility] GLUCOSE,BLOOD-poct (STL) Specimen Type: BLOOD Comment: Test Performed by: [id number] Meter #: [id number] Ordering Provider: SILVIA REDDY Report Released Date/Time: Aug 16, 2024 12:04 PM Reporting Lab: [facility] [address] Performing Lab: [facility] [address] GLUCOSE,BLOOD- poct (STL) 135 mg/dL H Aug 16, 2024 05:24 AM [facility] GLUCOSE,BLOOD-poct (STL) Specimen Type: BLOOD Comment: Test Performed by: [id number] Meter #: [id number] Ordering Provider: SILVIA REDDY Report Released Date/Time: Aug 16, 2024 05:38 AM Reporting Lab: [facility] [address] Performing Lab: [facility] [address] GLUCOSE,BLOOD- poct (STL) 151 mg/dL H Aug 15, 2024 07:31 PM [facility] GLUCOSE,BLOOD-poct (STL) Specimen Type: BLOOD Comment: Test Performed by: [id number] Meter #: [id number] Ordering Provider: SILVIA REDDY Report Released Date/Time: Aug 15, 2024 08:07 PM Reporting Lab: [facility] [address] Performing Lab: [facility] [address] GLUCOSE,BLOOD- poct (STL) 173 mg/dL H Aug 15, 2024 04:18 PM [facility] GLUCOSE,BLOOD-poct (STL) Specimen Type: BLOOD Comment: Test Performed by: [id number] Meter #: [id number] Ordering Provider: SILVIA REDDY Report Released Date/Time: Aug 15, 2024 04:59 PM Reporting Lab: [facility] [address] Performing Lab: [facility] [address] GLUCOSE,BLOOD- poct (STL) 136 mg/dL H Aug 15, 2024 04:16 PM [facility] GLUCOSE,BLOOD-poct (STL) Specimen Type: BLOOD Comment: Test Performed by: [id number] Meter #: [id number] Ordering Provider: SILVIA REDDY Report Released Date/Time: Aug 15, 2024 04:59 PM Reporting Lab: [facility] [address] Performing Lab: [facility] [address] GLUCOSE,BLOOD- poct (STL) 194 mg/dL H -Aug 15, 2024 11:39 AM [facility] GLUCOSE,BLOOD-poct (STL) Specimen Type: BLOOD Comment: Test Performed by: [id number] Meter #: [id number] Ordering Provider: SILVIA REDDY Report Released Date/Time: Aug 15, 2024 12:00 PM Reporting Lab: [facility] [address] Performing Lab: [facility] [address] GLUCOSE,BLOOD- poct (STL) 127 mg/dL H -Aug 15, 2024 05:07 AM [facility] GLUCOSE,BLOOD-poct (STL) Specimen Type: BLOOD Comment: Test Performed by: [id number] Meter #: [id number] Ordering Provider: SILVIA REDDY Report Released Date/Time: Aug 15, 2024 06:14 AM Reporting Lab: [facility] [address] Performing Lab: [facility] [address] GLUCOSE,BLOOD- poct (STL) 151 mg/dL H -Aug 14, 2024 04:22 PM [facility] GLUCOSE,BLOOD-poct (STL) Specimen Type: BLOOD Comment: Test Performed by: [id number] Meter #: [id number] Ordering Provider: SILVIA REDDY Report Released Date/Time: Aug 14, 2024 04:52 PM Reporting Lab: [facility] [place] [address] Performing Lab: [facility] [address] GLUCOSE,BLOOD- poct (STL) 129 mg/dL H 72-99 Aug 14, 2024 11:21 AM [facility] GLUCOSE,BLOOD-poct (STL) Specimen Type: BLOOD Comment: Test Performed by: [id number] Meter #: [id number] Ordering Provider: SILVIA REDDY Report Released Date/Time: Aug 14, 2024 11:37 AM Reporting Lab: [facility] [phone] Performing Lab: [facility] [address] GLUCOSE,BLOOD- poct (STL) 135 mg/dL H 72-99 Aug 14, 2024 06:59 AM [facility] QUANTIFERON-TB,4 TUBE Specimen Type: BLOOD Comment: normalcy [...] For additional information, please refer to http://education. Visiarc/faq/UZF157 (This link is being provided for information/ educational purposes only.) Test Performed by [employer], [employer] [facility], [address] [place] [address] Tommie Garcia M.D., Ph.D., Director of Laboratories , [facility] [id number] Ordering Provider: SILVIA REDDY Report Released Date/Time: Aug 11, 2024 03:58 PM Reporting Lab: [facility] [address] [facility] [address] Performing Lab: [facility] [id number] [place] [id number] .NIL - QUANTIFERON 0.04 [IU]/mL .MITOGEN-NIL 0.39 [IU]/mL .QUANTIFERON INDETERMINATE NEGATIVE .TB1-NIL <0.00 [IU]/mL .TB2-NIL <0.00 [IU]/mL Aug 14, 2024 06:59 AM [facility] MAGNESIUM Specimen Type: PLASMA Comment: No hemolysis noted. Ordering Provider: SILVIA REDDY Report Released Date/Time: Aug 11, 2024 03:58 PM Reporting Lab: [facility] [phone] Performing Lab: [facility] [address] MAGNESIUM 1.9 mg/dL 1.6-2.6 Aug 14, 2024 06:59 AM [facility] B12 Specimen Type: SERUM No comment entered. Ordering Provider: SILVIA REDDY Report Released Date/Time: Aug 11, 2024 03:58 PM Reporting Lab: [facility] [address] Performing Lab: [facility] [address] B12 757 pg/mL 213-816 Aug 14, 2024 06:59 AM [facility] FOLATE (STL-MA) Specimen Type: SERUM No comment entered. Ordering Provider: SILVIA REDDY Report Released Date/Time: Aug 11, 2024 03:58 PM Reporting Lab: [facility] [phone] Performing Lab: [facility] [facility] [id number] FOLATE (STL-MA) 6.8 ng/mL L 7-20 Aug 14, 2024 06:59 AM [facility] VITAMIN D, 25-HYDROXY Specimen Type: SERUM No comment entered. Ordering Provider: SILVIA REDDY Report Released Date/Time: Aug 11, 2024 03:58 PM Reporting Lab: [facility] [address] Performing Lab: [facility] [address] VITAMIN D, 25-HYDROXY 8.9 ng/mL L 30-96 Aug 14, 2024 06:59 AM [facility] COMPREHENSIVE METABOLIC PANEL Specimen Type: PLASMA Comment: No hemolysis noted. Ordering Provider: SILVIA REDDY Report Released Date/Time: Aug 11, 2024 03:58 PM Reporting Lab: [facility] [address] Performing Lab: [facility] [address] CREATININE 0.75 mg/dL 0.70-1.30 UREA NITROGEN 13.6 [...] 06:59 AM [facility] CBC Specimen Type: BLOOD No comment entered. Ordering Provider: SILVIA REDDY Report Released Date/Time: Aug 11, 2024 03:58 PM Reporting Lab: [facility] [address] Performing Lab: [facility] [address] WBC 4.1 10*3/uL 3.6-11.2 RBC 3.20 10*6/uL [...] 10*3/uL 0.00-0.20 Aug 14, 2024 05:08 AM [facility] GLUCOSE,BLOOD-poct (STL) Specimen Type: BLOOD Comment: Test Performed by: [id number] Meter #: [id number] Ordering Provider: SILVIA REDDY Report Released Date/Time: Aug 14, 2024 05:52 AM Reporting Lab: [facility] [address] Performing Lab: [facility] [address] GLUCOSE,BLOOD- poct (STL) 135 mg/dL H 72-99 Aug 13, 2024 04:27 PM [facility] GLUCOSE,BLOOD-poct (STL) Specimen Type: BLOOD Comment: Test Performed by: [id number] Meter #: [id number] Ordering Provider: SILVIA REDDY Report Released Date/Time: Aug 13, 2024 04:41 PM Reporting Lab: [facility] [address] Performing Lab: [facility] [address] GLUCOSE,BLOOD- poct (STL) 181 mg/dL H -Aug 13, 2024 11:33 AM [facility] GLUCOSE,BLOOD-poct (STL) Specimen Type: BLOOD Comment: Test Performed by: [id number] Meter #: [id number] Ordering Provider: SILVIA REDDY Report Released Date/Time: Aug 13, 2024 03:55 PM Reporting Lab: [facility] [address] Performing Lab: [facility] [place] [address] GLUCOSE,BLOOD- poct (STL) 140 mg/dL H Aug 13, 2024 05:54 AM [facility] GLUCOSE,BLOOD-poct (STL) Specimen Type: BLOOD Comment: Test Performed by: [id number] Meter #: [id number] Ordering Provider: SILVIA REDDY Report Released Date/Time: Aug 13, 2024 06:20 AM Reporting Lab: [facility] [address] Performing Lab: [facility] [address] GLUCOSE,BLOOD- poct (STL) 112 mg/dL H Aug 12, 2024 04:35 PM [facility] GLUCOSE,BLOOD-poct (STL) Specimen Type: BLOOD Comment: Test Performed by: [id number] Meter #: [id number] Ordering Provider: SILVIA REDDY Report Released Date/Time: Aug 12, 2024 04:47 PM Reporting Lab: [facility] [address] Performing Lab: [facility] [address] GLUCOSE,BLOOD- poct (STL) 128 mg/dL H 72-99 Aug 12, 2024 11:26 AM [facility] GLUCOSE,BLOOD-poct (STL) Specimen Type: BLOOD Comment: Test Performed by: [id number] Meter #: [id number] Ordering Provider: SILVIA REDDY Report Released Date/Time: Aug 12, 2024 11:45 AM Reporting Lab: [facility] [address] Performing Lab: [facility] [address] GLUCOSE,BLOOD- poct (STL) 188 mg/dL H 72-Aug 12, 2024 06:13 AM [facility] GLUCOSE,BLOOD-poct (STL) Specimen Type: BLOOD Comment: Test Performed by: [id number] Meter #: [id number] Ordering Provider: SILVIA REDDY Report Released Date/Time: Aug 12, 2024 06:25 AM Reporting Lab: [facility] [address] Performing Lab: [facility] [address] GLUCOSE,BLOOD- poct (STL) 116 mg/dL H 72-99 Aug 11, 2024 04:10 PM [facility] GLUCOSE,BLOOD-poct (STL) Specimen Type: BLOOD Comment: Test Performed by: [id number] Meter #: [id number] Ordering Provider: SILVIA REDDY Report Released Date/Time: Aug 11, 2024 04:27 PM Reporting Lab: [facility] [place] [address] Performing Lab: [facility] [place] [address] GLUCOSE,BLOOD- poct (STL) 184 mg/dL H 72-99 Aug 11, 2024 01:44 PM [facility] MRSA SURVL NARES DNA Specimen [...] Aug 11, 2024 02:03 PM Reporting Lab: [address] [address] Performing Lab: [address] [address] MRSA SURVL NARES DNA Negative Negative Vital Signs: All taken on the encounter date This section contains inpatient and outpatient Vital Signs collected on the date of the Encounter. Date/Time Temperature Pulse Blood Pressure Respiratory Rate SP02 Pain Height Weight Body Mass Index Source Aug 21, 2024 10:00 PM 0 [facility] Aug 21, 2024 07:09 PM 98.5 81 130/72 18 96 [facility] Aug 21, 2024 04:35 PM 71 138/70 [facility] Aug 21, 2024 10:00 AM 97.7 62 104/65 18 96 0 [facility] Aug 21, 2024 09:43 AM 0 [facility] Advance Directives: All historical [...]
--- OUTSIDE RECORDS SUMMARY | 2024-11-17 04:07 | XMS_ITS ---
[place] DAILY HOSPITALIZATION DATA [facility] Encounter Summary Created on: November 16, 2024 CHET WALKER : 1950 Sex: Male Author Name [facility] [place] [facility] [place] Address [address] [place] [address] Care Team Providers Care Dry Roller Name Role Phone MANUEL BAIRD Primary Care [...] PART A Apr 08, 2017 PART A [id number] [phone] ASHLEY WALKER PATIENT Selected Encounter This section includes the information on record at [place] for the Encounter. Date/Time Encounter Type Encounter Description Reason Pro vider Source Aug 21, 2024 01:59 AM Inpatient Visit DAILY HOSPITALIZATION DATA JOSSELINE ANNA Encounter Template Text not used by VA [...] Aug 30, 2024 09:30 AM AMBULATORY MEDICINE [facility] Aug 31, 2024 01:00 PM AMBULATORY - SURGERY [facility] Sep 21, 2024 01:30 PM AMBULATORY - MEDICINE [facility] Sep 22, 2024 11:00 AM AMBULATORY - MEDICINE [facility] Sep 29, 2024 12:30 PM AMBULATORY - MEDICINE [facility] Oct 02, 2024 09:30 AM AMBULATORY - MEDICINE [facility] Nov 20, 2024 10:30 AM AMBULATORY - SURGERY [facility] Nov 21, 2024 10:00 AM [...] of theEncounter. The data comes from all [facility]. Test Date/Time Test Type Test Details Facility Name Aug 02, 2024 12:00 AM Laboratory - Chemistry Order CBC BLOOD STAT SP [facility] Aug 02, 2024 12:00 AM Laboratory - Chemistry Order COMPREHENSIVE METABOLIC PANEL GREEN LI/HEP BLD/PLAS PLASMA SP [facility] Aug 17, 2024 03:47 PM Consult Order [facility] SKILLED HOME C[facility] Cons [...] Range Comment Aug 23, 2024 08:21 AM [facility] MAGNESIUM Specimen Type: PLASMA No comment entered. Ordering Provider: SILVIA REDDY Report Released Date/Time: Aug 22, 2024 11:26 AM Reporting Lab: [facility] [address] Performing Lab: [facility] [address] MAGNESIUM 1.8 mg/dL 1.6-2.6 Aug 23, 2024 08:21 AM [facility] CBC Specimen Type: BLOOD No comment entered. Ordering Provider: SILVIA REDDY Report Released Date/Time: Aug 22, 2024 11:19 AM Reporting Lab: [facility] [address] Performing Lab: [facility] [address] WBC 4.0 10*3/uL 3.6-11.2 RBC 3.65 10*6/uL [...] 10*3/uL 0.00-0.20 Aug 23, 2024 05:12 AM [facility] GLUCOSE,BLOOD-poct (STL) Specimen Type: BLOOD Comment: Test Performed by: [id number] Meter #: [id number] Ordering Provider: SILVIA REDDY Report Released Date/Time: Aug 23, 2024 05:23 AM Reporting Lab: [facility] [address] Performing Lab: [facility] #1 [facility] [address] GLUCOSE,BLOOD- poct (STL) 99 mg/dL 72-99 Aug 23, 2024 02:45 AM [facility] OCCULT BLOOD FIT X1 SCREEN Specimen Type: FECES No comment entered. Ordering Provider: SILVIA REDDY Report Released Date/Time: Aug 22, 2024 11:23 AM Reporting Lab: [address] [address] Performing Lab: [address] [address] OCCULT BLOOD (FIT) #1 OF 1 Negative Negative Aug 22, 2024 07:30 PM [facility] OCCULT BLOOD FIT X1 SCREEN Specimen Type: FECES No comment entered. Ordering Provider: SILVIA REDDY Report Released Date/Time: Aug 22, 2024 11:23 AM Reporting Lab: [address] [address] Performing Lab: [address] [address] OCCULT BLOOD (FIT) #1 OF 1 Negative Negative Aug 22, 2024 06:15 PM [facility] OCCULT BLOOD FIT X1 SCREEN Specimen Type: FECES No comment entered. Ordering Provider: SILVIA REDDY Report Released Date/Time: Aug 22, 2024 11:23 AM Reporting Lab: [address] [address] Performing Lab: [place] [address] [facility] [address] OCCULT BLOOD (FIT) #1 OF 1 Negative Negative Aug 22, 2024 04:24 PM [facility] GLUCOSE,BLOOD-poct (STL) Specimen Type: BLOOD Comment: Test Performed by: [id number] Meter #: [id number] Ordering Provider: SILVIA REDDY Report Released Date/Time: Aug 22, 2024 04:36 PM Reporting Lab: [facility] [address] Performing Lab: [facility] #1 [facility] [address] GLUCOSE,BLOOD- poct (STL) 176 mg/dL H -Aug 22, 2024 04:23 PM [facility] GLUCOSE,BLOOD-poct (STL) Specimen Type: BLOOD Comment: Test Performed by: [id number] Meter #: [id number] Ordering Provider: SILVIA REDDY Report Released Date/Time: Aug 22, 2024 04:36 PM Reporting Lab: [facility] [address] Performing Lab: [facility] #1 [facility] [address] GLUCOSE,BLOOD- poct (STL) 221 mg/dL H 72-Aug 22, 2024 11:15 AM [facility] GLUCOSE,BLOOD-poct (STL) Specimen Type: BLOOD Comment: Test Performed by: [id number] Meter #: [id number] Ordering Provider: SILVIA REDDY Report Released Date/Time: Aug 22, 2024 11:27 AM Reporting Lab: [facility] [address] Performing Lab: [facility] #1 [facility] [address] GLUCOSE,BLOOD- poct (STL) 140 mg/dL H 72-Aug 22, 2024 08:[address] [facility] FERRITIN Specimen Type: SERUM No comment entered. Ordering Provider: JUDIT PERKINS Report Released Date/Time: Aug 18, 2024 11:01 AM Reporting Lab: [facility] [address] [facility] [address] Performing Lab: [facility] [address] [facility] [address] FERRITIN 79.50 ng/mL 22-275 Aug 22, 2024 08:03 AM [facility] B12 Specimen Type: SERUM No comment entered. Ordering Provider: JUDIT PERKINS Report Released Date/Time: Aug 18, 2024 11:01 AM Reporting Lab: [facility] [address] Performing Lab: [facility] [address] B12 631 pg/mL 213-816 Aug 22, 2024 08:03 AM [facility] IRON/TIBC PROFILE Specimen Type: SERUM No comment entered. Ordering Provider: JUDIT PERKINS Report Released Date/Time: Aug 18, 2024 11:01 AM Reporting Lab: [place] [address] [facility] [address] Performing Lab: [facility] [address] [place] [address] TIBC 283 ug/dL 250-450 TRANSFERRIN 226 mg/dL 163-344 IRON SATURATION 7 L 20-50 IRON 19 ug/dL L 65-175 Aug 22, 2024 08:03 AM [facility] COMPREHENSIVE METABOLIC PANEL Specimen Type: PLASMA Comment: No hemolysis noted. Ordering Provider: SILVIA REDDY Report Released Date/Time: Aug 17, 2024 01:18 PM Reporting Lab: [facility] [address] [facility] [address] Performing Lab: [address] [address] CREATININE 0.80 mg/dL 0.7-1.3 UREA NITROGEN 9.7 [...] 94.0 >60 Aug 22, 2024 08:03 AM [facility] CBC Specimen Type: BLOOD No comment entered. Ordering Provider: SILVIA REDDY Report Released Date/Time: Aug 17, 2024 01:18 PM Reporting Lab: [facility] [address] Performing Lab: [facility] [address] WBC 3.5 10*3/uL L 3.6-11.2 RBC 3.23 [...] NRBC% 0 Aug 22, 2024 05:03 AM [facility] GLUCOSE,BLOOD-poct (STL) Specimen Type: BLOOD Comment: Test Performed by: [id number] Meter #: [id number] Ordering Provider: SILVIA REDDY Report Released Date/Time: Aug 22, 2024 06:17 AM Reporting Lab: [facility] #1 [facility] [address] Performing Lab: [facility] #1 [facility] [address] GLUCOSE,BLOOD- poct (STL) 170 mg/dL H 72-Aug 21, 2024 04:32 PM [facility] GLUCOSE,BLOOD-poct (STL) Specimen Type: BLOOD Comment: Test Performed by: [id number] Meter #: [id number] Ordering Provider: SILVIA REDDY Report Released Date/Time: Aug 21, 2024 04:49 PM Reporting Lab: [facility] [address] Performing Lab: [facility] #1 [facility] [address] GLUCOSE,BLOOD- poct (STL) 169 mg/dL H -Aug 21, 2024 11:53 AM [facility] GLUCOSE,BLOOD-poct (STL) Specimen Type: BLOOD Comment: Test Performed by: [id number] Meter #: [id number] Ordering Provider: SILVIA REDDY Report Released Date/Time: Aug 21, 2024 12:11 PM Reporting Lab: [facility] #1 [facility] [address] Performing Lab: [facility] #1 [facility] [address] GLUCOSE,BLOOD- poct (STL) 149 mg/dL H 72-Aug 21, 2024 05:10 AM [facility] GLUCOSE,BLOOD-poct (STL) Specimen Type: BLOOD Comment: Test Performed by: [id number] Meter #: [id number] Ordering Provider: SILVIA REDDY Report Released Date/Time: Aug 21, 2024 05:27 AM Reporting Lab: [facility] #1 [facility] [address] Performing Lab: [facility] #1 [facility] [address] GLUCOSE,BLOOD- poct (STL) 118 mg/dL H 72-Aug 20, 2024 04:38 PM [facility] GLUCOSE,BLOOD-poct (STL) Specimen Type: BLOOD Comment: Test Performed by: [id number] Meter #: [id number] Ordering Provider: SILVIA REDDY Report Released Date/Time: Aug 21, 2024 01:55 AM Reporting Lab: [facility] #1 [facility] [address] Performing Lab: [facility] #1 [place] [address] GLUCOSE,BLOOD- poct (STL) 169 mg/dL H -Aug 20, 2024 04:36 PM [facility] GLUCOSE,BLOOD-poct (STL) Specimen Type: BLOOD Comment: Test Performed by: [id number] Meter #: [id number] Ordering Provider: SILVIA REDDY Report Released Date/Time: Aug 21, 2024 01:55 AM Reporting Lab: [facility] #1 [facility] [address] Performing Lab: [facility] #1 [facility] [address] GLUCOSE,BLOOD- poct (STL) 395 mg/dL H 72-Aug 20, 2024 11:45 AM [facility] GLUCOSE,BLOOD-poct (STL) Specimen Type: BLOOD Comment: Test Performed by: [id number] Meter #: [id number] Ordering Provider: SILVIA REDDY Report Released Date/Time: Aug 20, 2024 11:56 AM Reporting Lab: [facility] #1 [place] [address] Performing Lab: [facility]1 [facility] [address] GLUCOSE,BLOOD- poct (STL) 169 mg/dL H -Aug 20, 2024 05:06 AM [facility] GLUCOSE,BLOOD-poct (STL) Specimen Type: BLOOD Comment: Test Performed by: [id number] Meter #: [id number] Ordering Provider: SILVIA REDDY Report Released Date/Time: Aug 20, 2024 06:05 AM Reporting Lab: [facility]1 [facility] [address] Performing Lab: [facility] #1 [facility] [address] GLUCOSE,BLOOD- poct (STL) 115 mg/dL H -Aug 19, 2024 04:23 PM [facility] GLUCOSE,BLOOD-poct (STL) Specimen Type: BLOOD Comment: Test Performed by: [id number] Meter #: [id number] Ordering Provider: SILVIA REDDY Report Released Date/Time: Aug 19, 2024 05:54 PM Reporting Lab: [facility]1 [facility] [address] Performing Lab: [facility]1 [facility] [address] GLUCOSE,BLOOD- poct (STL) 137 mg/dL H -Aug 19, 2024 11:28 AM [facility] GLUCOSE,BLOOD-poct (STL) Specimen Type: BLOOD Comment: Test Performed by: [id number] Meter #: [id number] Ordering Provider: SILVIA REDDY Report Released Date/Time: Aug 19, 2024 11:51 AM Reporting Lab: [facility]1 [facility] [address] Performing Lab: [facility]1 [facility] [address] GLUCOSE,BLOOD- poct (STL) 190 mg/dL H Aug 19, 2024 05:21 AM [facility] GLUCOSE,BLOOD-poct (STL) Specimen Type: BLOOD Comment: Test Performed by: [id number] Meter #: [id number] Ordering Provider: SILVIA REDDY Report Released Date/Time: Aug 19, 2024 05:56 AM Reporting Lab: [facility] #1 [facility] [address] Performing Lab: [facility] #1 [facility] [address] GLUCOSE,BLOOD- poct (STL) 130 mg/dL H Aug 18, 2024 04:49 PM [facility] GLUCOSE,BLOOD-poct (STL) Specimen Type: BLOOD Comment: Test Performed by: [id number] Meter #: [id number] Ordering Provider: SILVIA REDDY Report Released Date/Time: Aug 18, 2024 05:01 PM Reporting Lab: [facility]1 [facility] [address] Performing Lab: [facility] #1 [facility] [address] GLUCOSE,BLOOD- poct (STL) 129 mg/dL H Aug 18, 2024 11:23 AM [facility] GLUCOSE,BLOOD-poct (STL) Specimen Type: BLOOD Comment: Test Performed by: [id number] Meter #: [id number] Ordering Provider: SILVIA REDDY Report Released Date/Time: Aug 18, 2024 11:41 AM Reporting Lab: [facility] #1 [facility] [address] Performing Lab: [facility] #1 [facility] [address] GLUCOSE,BLOOD- poct (STL) 180 mg/dL H Aug 18, 2024 05:08 AM [facility] GLUCOSE,BLOOD-poct (STL) Specimen Type: BLOOD Comment: Test Performed by: [id number] Meter #: [id number] Ordering Provider: SILVIA REDDY Report Released Date/Time: Aug 18, 2024 05:31 AM Reporting Lab: [facility]1 [facility] [address] Performing Lab: [facility] #1 [facility] [address] GLUCOSE,BLOOD- poct (STL) 127 mg/dL H -Aug 17, 2024 07:32 PM [facility] GLUCOSE,BLOOD-poct (STL) Specimen Type: BLOOD Comment: Test Performed by: [id number] Meter #: [id number] Ordering Provider: SILVIA REDDY Report Released Date/Time: Aug 17, 2024 07:59 PM Reporting Lab: [facility] #1 [facility] [address] Performing Lab: [facility] #1 [facility] [address] GLUCOSE,BLOOD- poct (STL) 154 mg/dL H -Aug 17, 2024 04:24 PM [facility] GLUCOSE,BLOOD-poct (STL) Specimen Type: BLOOD Comment: Test Performed by: [id number] Meter #: [id number] Ordering Provider: SILVIA REDDY Report Released Date/Time: Aug 17, 2024 04:35 PM Reporting Lab: [facility] #1 [facility] [address] Performing Lab: [facility]1 [facility] [address] GLUCOSE,BLOOD- poct (STL) 178 mg/dL H -Aug 17, 2024 05:09 AM [facility] GLUCOSE,BLOOD-poct (STL) Specimen Type: BLOOD Comment: Test Performed by: [id number] Meter #: [id number] Ordering Provider: SILVIA REDDY Report Released Date/Time: Aug 17, 2024 05:54 AM Reporting Lab: [facility] #1 [place] [address] Performing Lab: [facility]1 [facility] [address] GLUCOSE,BLOOD- poct (STL) 124 mg/dL H -Aug 16, 2024 07:40 PM [facility] GLUCOSE,BLOOD-poct (STL) Specimen Type: BLOOD Comment: Test Performed by: [id number] Meter #: [id number] Ordering Provider: SILVIA REDDY Report Released Date/Time: Aug 16, 2024 08:28 PM Reporting Lab: [facility]1 [facility] [address] Performing Lab: [facility] #1 [facility] [address] GLUCOSE,BLOOD- poct (STL) 144 mg/dL H Aug 16, 2024 04:19 PM [facility] GLUCOSE,BLOOD-poct (STL) Specimen Type: BLOOD Comment: Test Performed by: [id number] Meter #: [id number] Ordering Provider: SILVIA REDDY Report Released Date/Time: Aug 16, 2024 04:45 PM Reporting Lab: [facility] #1 [facility] [address] Performing Lab: [facility] #1 [facility] [address] GLUCOSE,BLOOD- poct (STL) 138 mg/dL H Aug 16, 2024 11:52 AM [facility] GLUCOSE,BLOOD-poct (STL) Specimen Type: BLOOD Comment: Test Performed by: [id number] Meter #: [id number] Ordering Provider: SILVIA REDDY Report Released Date/Time: Aug 16, 2024 12:04 PM Reporting Lab: [facility]1 [facility] [address] Performing Lab: [facility]1 [facility] [address] GLUCOSE,BLOOD- poct (STL) 135 mg/dL H Aug 16, 2024 05:24 AM [facility] GLUCOSE,BLOOD-poct (STL) Specimen Type: BLOOD Comment: Test Performed by: [id number] Meter #: [id number] Ordering Provider: SILVIA REDDY Report Released Date/Time: Aug 16, 2024 05:38 AM Reporting Lab: [facility] #1 [facility] [address] Performing Lab: [facility] #1 [facility] [address] GLUCOSE,BLOOD- poct (STL) 151 mg/dL H Aug 15, 2024 07:31 PM [facility] GLUCOSE,BLOOD-poct (STL) Specimen Type: BLOOD Comment: Test Performed by: [id number] Meter #: [id number] Ordering Provider: SILVIA REDDY Report Released Date/Time: Aug 15, 2024 08:07 PM Reporting Lab: [facility]1 [facility] [address] Performing Lab: [facility] #1 [facility] [address] GLUCOSE,BLOOD- poct (STL) 173 mg/dL H Aug 15, 2024 04:18 PM [facility] GLUCOSE,BLOOD-poct (STL) Specimen Type: BLOOD Comment: Test Performed by: [id number] Meter #: [id number] Ordering Provider: SILVIA REDDY Report Released Date/Time: Aug 15, 2024 04:59 PM Reporting Lab: [facility] #1 [facility] [address] Performing Lab: [facility] #1 [facility] [address] GLUCOSE,BLOOD- poct (STL) 136 mg/dL H Aug 15, 2024 04:16 PM [facility] GLUCOSE,BLOOD-poct (STL) Specimen Type: BLOOD Comment: Test Performed by: [id number] Meter #: [id number] Ordering Provider: SILVIA REDDY Report Released Date/Time: Aug 15, 2024 04:59 PM Reporting Lab: [facility] #1 [facility] [address] Performing Lab: [facility] #1 [facility] [address] GLUCOSE,BLOOD- poct (STL) 194 mg/dL H -Aug 15, 2024 11:39 AM [facility] GLUCOSE,BLOOD-poct (STL) Specimen Type: BLOOD Comment: Test Performed by: [id number] Meter #: [id number] Ordering Provider: SILVIA REDDY Report Released Date/Time: Aug 15, 2024 12:00 PM Reporting Lab: [facility] #1 [facility] [address] Performing Lab: [facility] [address] GLUCOSE,BLOOD- poct (STL) 127 mg/dL H -Aug 15, 2024 05:07 AM [facility] GLUCOSE,BLOOD-poct (STL) Specimen Type: BLOOD Comment: Test Performed by: [id number] Meter #: [id number] Ordering Provider: SILVIA REDDY Report Released Date/Time: Aug 15, 2024 06:14 AM Reporting Lab: [facility] #1 [facility] [address] Performing Lab: [facility] #1 [facility] [address] GLUCOSE,BLOOD- poct (STL) 151 mg/dL H -Aug 14, 2024 04:22 PM [facility] GLUCOSE,BLOOD-poct (STL) Specimen Type: BLOOD Comment: Test Performed by: [id number] Meter #: [id number] Ordering Provider: SILVIA REDDY Report Released Date/Time: Aug 14, 2024 04:52 PM Reporting Lab: [facility] #[facility] [place] [address] Performing Lab: [facility]1 [facility] [address] GLUCOSE,BLOOD- poct (STL) 129 mg/dL H 72-99 Aug 14, 2024 11:21 AM [facility] GLUCOSE,BLOOD-poct (STL) Specimen Type: BLOOD Comment: Test Performed by: [id number] Meter #: [id number] Ordering Provider: SILVIA REDDY Report Released Date/Time: Aug 14, 2024 11:37 AM Reporting Lab: [facility]1 [facility] [address] Performing Lab: [facility]1 [facility] [address] GLUCOSE,BLOOD- poct (STL) 135 mg/dL H 72-99 Aug 14, 2024 06:59 AM [facility] QUANTIFERON-TB,4 TUBE Specimen Type: BLOOD Comment: normalcy [...] For additional information, please refer to [email or web address] (This link is being provided for information/ educational purposes only.) Test Performed by [facility] [employer] [facility], [address] [place] [address] Tommie Garcia M.D., Ph.D., Director of Laboratories , [facility] [id number] Ordering Provider: SILVIA REDDY Report Released Date/Time: Aug 11, 2024 03:58 PM Reporting Lab: [facility] [address] [facility] [address] Performing Lab: [facility] [id number] [id number] .NIL - QUANTIFERON 0.04 [IU]/mL .MITOGEN-NIL 0.39 [IU]/mL .QUANTIFERON INDETERMINATE NEGATIVE .TB1-NIL <0.00 [IU]/mL .TB2-NIL <0.00 [IU]/mL Aug 14, 2024 06:59 AM [facility] MAGNESIUM Specimen Type: PLASMA Comment: No hemolysis noted. Ordering Provider: SILVIA REDDY Report Released Date/Time: Aug 11, 2024 03:58 PM Reporting Lab: [facility] [facility] [id number] Performing Lab: [facility] [facility] [id number] MAGNESIUM 1.9 mg/dL 1.6-2.6 Aug 14, 2024 06:59 AM [facility] B12 Specimen Type: SERUM No comment entered. Ordering Provider: SILVIA REDDY Report Released Date/Time: Aug 11, 2024 03:58 PM Reporting Lab: [facility] [facility] [id number] Performing Lab: [facility] [facility] [id number] B12 757 pg/mL 213-816 Aug 14, 2024 06:59 AM [facility] FOLATE ([facility]) Specimen Type: SERUM No comment entered. Ordering Provider: SILVIA REDDY Report Released Date/Time: Aug 11, 2024 03:58 PM Reporting Lab: [facility] [facility] [id number] Performing Lab: [facility] [address] FOLATE (STL-MA) 6.8 ng/mL L 7-20 Aug 14, 2024 06:59 AM [facility] VITAMIN D, 25-HYDROXY Specimen Type: SERUM No comment entered. Ordering Provider: SILVIA REDDY Report Released Date/Time: Aug 11, 2024 03:58 PM Reporting Lab: [facility] [address] Performing Lab: [facility] [address] VITAMIN D, 25-HYDROXY 8.9 ng/mL L 30-96 Aug 14, 2024 06:59 AM [facility] CBC Specimen Type: BLOOD No comment entered. Ordering Provider: SILVIA REDDY Report Released Date/Time: Aug 11, 2024 03:58 PM Reporting Lab: [facility] [address] Performing Lab: [facility] [address] WBC 4.1 10*3/uL 3.6-11.2 RBC 3.20 10*6/uL [...] 10*3/uL 0.00-0.20 Aug 14, 2024 06:59 AM [facility] COMPREHENSIVE METABOLIC PANEL Specimen Type: PLASMA Comment: No hemolysis noted. Ordering Provider: SILVIA REDDY Report Released Date/Time: Aug 11, 2024 03:58 PM Reporting Lab: [facility] [place] [phone] Performing Lab: [facility] [place] [phone] CREATININE 0.75 mg/dL 0.70-1.30 UREA NITROGEN 13.6 [...] 95.88 >60 Aug 14, 2024 05:08 AM [facility] GLUCOSE,BLOOD-poct (STL) Specimen Type: BLOOD Comment: Test Performed by: [id number] Meter #: [id number] Ordering Provider: SILVIA REDDY Report Released Date/Time: Aug 14, 2024 05:52 AM Reporting Lab: [facility] [address] Performing Lab: [facility] [address] GLUCOSE,BLOOD- poct (STL) 135 mg/dL H 72-99 Aug 13, 2024 04:27 PM [facility] GLUCOSE,BLOOD-poct (STL) Specimen Type: BLOOD Comment: Test Performed by: [id number] Meter #: [id number] Ordering Provider: SILVIA REDDY Report Released Date/Time: Aug 13, 2024 04:41 PM Reporting Lab: [facility] [address] Performing Lab: [facility] [address] GLUCOSE,BLOOD- poct (STL) 181 mg/dL H -Aug 13, 2024 11:33 AM [facility] GLUCOSE,BLOOD-poct (STL) Specimen Type: BLOOD Comment: Test Performed by: [id number] Meter #: [id number] Ordering Provider: SILVIA REDDY Report Released Date/Time: Aug 13, 2024 03:55 PM Reporting Lab: [facility] [address] Performing Lab: [facility] [place] [address] GLUCOSE,BLOOD- poct (STL) 140 mg/dL H Aug 13, 2024 05:54 AM [facility] GLUCOSE,BLOOD-poct (STL) Specimen Type: BLOOD Comment: Test Performed by: [id number] Meter #: [id number] Ordering Provider: SILVIA REDDY Report Released Date/Time: Aug 13, 2024 06:20 AM Reporting Lab: [facility] [address] Performing Lab: [facility] [address] GLUCOSE,BLOOD- poct (STL) 112 mg/dL H Aug 12, 2024 04:35 PM [facility] GLUCOSE,BLOOD-poct (STL) Specimen Type: BLOOD Comment: Test Performed by: [id number] Meter #: [id number] Ordering Provider: SILVIA REDDY Report Released Date/Time: Aug 12, 2024 04:47 PM Reporting Lab: [facility] [address] Performing Lab: [facility] [address] GLUCOSE,BLOOD- poct (STL) 128 mg/dL H 72-99 Aug 12, 2024 11:26 AM [facility] GLUCOSE,BLOOD-poct (STL) Specimen Type: BLOOD Comment: Test Performed by: [id number] Meter #: [id number] Ordering Provider: SILVIA REDDY Report Released Date/Time: Aug 12, 2024 11:45 AM Reporting Lab: [facility] [address] Performing Lab: [facility] [address] GLUCOSE,BLOOD- poct (STL) 188 mg/dL H 72-Aug 12, 2024 06:13 AM [facility] GLUCOSE,BLOOD-poct (STL) Specimen Type: BLOOD Comment: Test Performed by: [id number] Meter #: [id number] Ordering Provider: SILVIA REDDY Report Released Date/Time: Aug 12, 2024 06:25 AM Reporting Lab: [facility] [address] Performing Lab: [facility] [address] GLUCOSE,BLOOD- poct (STL) 116 mg/dL H 72-99 Aug 11, 2024 04:10 PM [facility] GLUCOSE,BLOOD-poct (STL) Specimen Type: BLOOD Comment: Test Performed by: [id number] Meter #: [id number] Ordering Provider: SILVIA REDDY Report Released Date/Time: Aug 11, 2024 04:27 PM Reporting Lab: [facility] [place] [address] Performing Lab: [facility] [place] [address] GLUCOSE,BLOOD- poct (STL) 184 mg/dL H 72-99 Aug 11, 2024 01:44 PM [facility] MRSA SURVL NARES DNA Specimen Type: [...] Aug 11, 2024 02:03 PM Reporting Lab: [address] [address] Performing Lab: [address] [address] MRSA SURVL NARES DNA Negative Negative Vital Signs: All taken on the encounter date This section contains inpatient and outpatient Vital Signs collected on the date of the Encounter. Date/Time Temperature Pulse Blood Pressure Respiratory Rate SP02 Pain Height Weight Body Mass Index Source Aug 21, 2024 10:00 PM 0 [facility] Aug 21, 2024 07:09 PM 98.5 81 130/72 18 96 [facility] Aug 21, 2024 04:35 PM 71 138/70 [facility] Aug 21, 2024 10:00 AM 97.7 62 104/65 18 96 0 [facility] Aug 21, 2024 09:43 AM 0 [facility] Advance Directives: All historical and current Section Date Range: From patient's date of to the date document was created. This section includes ALL of a patient's completed or amended [place] Advance and Rescinded Directives. The entries below indicate that a directive exists for the patient, but an actual copy is not included with this document. The data comes from all [place] facilities. Date Advance Directives Provider Source Jan 19, 2017 ADVANCE DIRECTIVE DISCUSSION ERICK BARDALES [facility]
--- OUTSIDE RECORDS SUMMARY | 2024-11-17 04:08 | XMS_ITS | Encounter Summary ---
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 This section includes future appointments [...] 24, 2024 10:00 AM AMBULATORY - MEDICINE [facility] Aug 24, 2024 10:30 AM AMBULATORY - MEDICINE [facility] Aug 30, 2024 09:30 AM AMBULATORY MEDICINE [facility] Aug 31, 2024 01:00 PM AMBULATORY - SURGERY [facility] Sep 21, 2024 01:30 PM AMBULATORY MEDICINE [facility] Sep 22, 2024 11:00 AM AMBULATORY - MEDICINE [facility] Sep 29, 2024 12:30 PM AMBULATORY - MEDICINE [facility] Oct 02, 2024 09:30 AM AMBULATORY - MEDICINE [facility] Nov 20, 2024 10:30 AM AMBULATORY - SURGERY [facility] Nov 21, 2024 10:00 AM AMBULATORY - NONE [facility] Dec 11, 2024 10:30 AM [...] of theEncounter. The data comes from all [facility]. Test Date/Time Test Type Test Details Facility Name Aug 02, 2024 12:00 AM Laboratory - Chemistry Order CBC BLOOD STAT SP [facility] Aug 02, 2024 12:00 AM Laboratory - Chemistry Order COMPREHENSIVE METABOLIC PANEL GREEN LI/HEP BLD/[facility] Aug 17, 2024 03:47 PM Consult Order [facility] Cons Bedside [facility] [...] 2024 11:26 AM Reporting Lab: [facility] [address] Performing Lab: [facility] [address] MAGNESIUM 1.8 mg/dL 1.6-2.6 Aug 23, 2024 08:21 AM [facility] CBC Specimen Type: BLOOD No comment entered. Ordering Provider: SILVIA REDDY Report Released Date/Time: Aug 22, 2024 11:19 AM Reporting Lab: [facility] [address] Performing Lab: [facility] [address] WBC 4.0 10*3/uL 3.6-11.2 RBC 3.65 10*6/uL [...] Specimen Type: BLOOD Comment: Test Performed by: [id number] Meter #: [id number] Ordering Provider: SILVIA REDDY Report Released Date/Time: Aug 23, 2024 05:23 AM Reporting Lab: [facility] [address] Performing Lab: [facility] [address] GLUCOSE,BLOOD- poct (STL) 99 mg/dL 72-99 Aug 23, 2024 02:45 AM [facility] OCCULT BLOOD FIT X1 SCREEN Specimen Type: FECES No comment entered. Ordering Provider: SILVIA REDDY Report Released Date/Time: Aug 22, 2024 11:23 AM Reporting Lab: [address] [address] Performing Lab: [address] [address] OCCULT BLOOD (FIT) #1 OF 1 Negative Negative Aug 22, 2024 07:30 PM [facility] OCCULT BLOOD FIT X1 SCREEN Specimen Type: FECES No comment entered. Ordering Provider: SILVIA REDDY Report Released Date/Time: Aug 22, 2024 11:23 AM Reporting Lab: [address] [address] Performing Lab: [address] [address] OCCULT BLOOD (FIT) #1 OF 1 Negative Negative Aug 22, 2024 06:15 PM [facility] OCCULT BLOOD FIT X1 SCREEN Specimen Type: FECES No comment entered. Ordering Provider: SILVIA REDDY Report Released Date/Time: Aug 22, 2024 11:23 AM Reporting Lab: [facility] [address] [place] [address] Performing Lab: [address] [address] OCCULT BLOOD (FIT) #1 OF 1 Negative Negative Aug 22, 2024 04:24 PM [facility] GLUCOSE,BLOOD-poct (STL) Specimen Type: BLOOD Comment: Test Performed by: [id number] Meter #: [id number] Ordering Provider: SILVIA REDDY Report Released Date/Time: Aug 22, 2024 04:36 PM Reporting Lab: [facility] [address] Performing Lab: [facility] [address] GLUCOSE,BLOOD- poct (STL) 176 mg/dL H 72-99 Aug 22, 2024 04:23 PM [facility] GLUCOSE,BLOOD-poct (STL) Specimen Type: BLOOD Comment: Test Performed by: [id number] Meter #: [id number] Ordering Provider: SILVIA REDDY Report Released Date/Time: Aug 22, 2024 04:36 PM Reporting Lab: [facility] [address] Performing Lab: [facility] [address] GLUCOSE,BLOOD- poct (STL) 221 mg/dL H 72-99 Aug 22, 2024 11:15 AM [facility] GLUCOSE,BLOOD-poct (STL) Specimen Type: BLOOD Comment: Test Performed by: [id number] Meter #: [id number] Ordering Provider: SILVIA REDDY Report Released Date/Time: Aug 22, 2024 11:27 AM Reporting Lab: [facility] [address] Performing Lab: [facility] [address] GLUCOSE,BLOOD- poct (STL) 140 mg/dL H 72-99 Aug 22, 2024 08:03 AM [facility] FERRITIN Specimen Type: SERUM No comment entered. Ordering Provider: JUDIT PERKINS Report Released Date/Time: Aug 18, 2024 11:01 AM Reporting Lab: [facility] [address] [facility] [address] Performing Lab: [address] [address] FERRITIN 79.50 ng/mL 22-275 Aug 22, 2024 08:03 AM [facility] IRON/TIBC PROFILE Specimen Type: SERUM No comment entered. Ordering Provider: JUDIT PERKINS Report Released Date/Time: Aug 18, 2024 11:01 AM Reporting Lab: [facility] [address] [facility] [address] Performing Lab: [address] [address] TIBC 283 ug/dL 250-450 TRANSFERRIN 226 mg/dL 163-344 IRON SATURATION 7 L 20-50 IRON 19 ug/dL L 65-175 Aug 22, 2024 08:03 AM [facility] B12 Specimen Type: SERUM No comment entered. Ordering Provider: JUDIT PERKINS Report Released Date/Time: Aug 18, 2024 11:01 AM Reporting Lab: [facility] [address] Performing Lab: [facility] [address] B12 631 pg/mL 213-816 Aug 22, 2024 08:03 AM [facility] COMPREHENSIVE METABOLIC PANEL Specimen Type: PLASMA Comment: No hemolysis noted. Ordering Provider: SILVIA REDDY Report Released Date/Time: Aug 17, 2024 01:18 PM Reporting Lab: [facility] [address] [facility] [address] Performing Lab: [facility] [address] [facility] [address] CREATININE 0.80 mg/dL 0.7-1.3 UREA NITROGEN 9.7 [...] 94.0 >60 Aug 22, 2024 08:03 AM [facility] CBC Specimen Type: BLOOD No comment entered. Ordering Provider: SILVIA REDDY Report Released Date/Time: Aug 17, 2024 01:18 PM Reporting Lab: [facility] [address] Performing Lab: [facility] [address] WBC 3.5 10*3/uL L 3.6-11.2 RBC 3.23 [...] Specimen Type: BLOOD Comment: Test Performed by: [id number] Meter #: [id number] Ordering Provider: SILVIA REDDY Report Released Date/Time: Aug 22, 2024 06:17 AM Reporting Lab: [facility] [place] [address] Performing Lab: [facility] [place] [address] GLUCOSE,BLOOD- poct (STL) 170 mg/dL H 72-99 Aug 21, 2024 04:32 PM [facility] GLUCOSE,BLOOD-poct (STL) Specimen Type: BLOOD Comment: Test Performed by: [id number] Meter #: [id number] Ordering Provider: SILVIA REDDY Report Released Date/Time: Aug 21, 2024 04:49 PM Reporting Lab: [facility] [place] [address] Performing Lab: [facility] [place] [address] GLUCOSE,BLOOD- poct (STL) 169 mg/dL H 72-99 Aug 21, 2024 11:53 AM [facility] GLUCOSE,BLOOD-poct (STL) Specimen Type: BLOOD Comment: Test Performed by: [id number] Meter #: [id number] Ordering Provider: SILVIA REDDY Report Released Date/Time: Aug 21, 2024 12:11 PM Reporting Lab: [facility] [place] [address] Performing Lab: [facility] [address] GLUCOSE,BLOOD- poct (STL) 149 mg/dL H -Aug 21, 2024 05:10 AM [facility] GLUCOSE,BLOOD-poct (STL) Specimen Type: BLOOD Comment: Test Performed by: [id number] Meter #: [id number] Ordering Provider: SILVIA REDDY Report Released Date/Time: Aug 21, 2024 05:27 AM Reporting Lab: [facility] [address] Performing Lab: [facility] [address] GLUCOSE,BLOOD- poct (STL) 118 mg/dL H -Aug 20, 2024 04:38 PM [facility] GLUCOSE,BLOOD-poct (STL) Specimen Type: BLOOD Comment: Test Performed by: [id number] Meter #: [id number] Ordering Provider: SILVIA REDDY Report Released Date/Time: Aug 21, 2024 01:55 AM Reporting Lab: [facility] [address] Performing Lab: [facility] [address] GLUCOSE,BLOOD- poct (STL) 169 mg/dL H -Aug 20, 2024 04:36 PM [facility] GLUCOSE,BLOOD-poct (STL) Specimen Type: BLOOD Comment: Test Performed by: [id number] Meter #: [id number] Ordering Provider: SILVIA REDDY Report Released Date/Time: Aug 21, 2024 01:55 AM Reporting Lab: [facility] [address] Performing Lab: [facility] [facility] [address] GLUCOSE,BLOOD- poct (STL) 395 mg/dL H -Aug 20, 2024 11:45 AM [facility] GLUCOSE,BLOOD-poct (STL) Specimen Type: BLOOD Comment: Test Performed by: [id number] Meter #: [id number] Ordering Provider: SILVIA REDDY Report Released Date/Time: Aug 20, 2024 11:56 AM Reporting Lab: [facility] [address] Performing Lab: [facility] [address] GLUCOSE,BLOOD- poct (STL) 169 mg/dL H 72-Aug 20, 2024 05:06 AM [facility] GLUCOSE,BLOOD-poct (STL) Specimen Type: BLOOD Comment: Test Performed by: [id number] Meter #: [id number] Ordering Provider: SILVIA REDDY Report Released Date/Time: Aug 20, 2024 06:05 AM Reporting Lab: [facility] [address] Performing Lab: [facility] [address] GLUCOSE,BLOOD- poct (STL) 115 mg/dL H -Aug 19, 2024 04:23 PM [facility] GLUCOSE,BLOOD-poct (STL) Specimen Type: BLOOD Comment: Test Performed by: [id number] Meter #: [id number] Ordering Provider: SILVIA REDDY Report Released Date/Time: Aug 19, 2024 05:54 PM Reporting Lab: [facility] [address] Performing Lab: [facility] [address] GLUCOSE,BLOOD- poct (STL) 137 mg/dL H 72-Aug 19, 2024 11:28 AM [facility] GLUCOSE,BLOOD-poct (STL) Specimen Type: BLOOD Comment: Test Performed by: [id number] Meter #: [id number] Ordering Provider: SILVIA REDDY Report Released Date/Time: Aug 19, 2024 11:51 AM Reporting Lab: [facility] [address] Performing Lab: [facility] [address] GLUCOSE,BLOOD- poct (STL) 190 mg/dL H 72-99 Aug 19, 2024 05:21 AM [facility] GLUCOSE,BLOOD-poct (STL) Specimen Type: BLOOD Comment: Test Performed by: [id number] Meter #: [id number] Ordering Provider: SILVIA REDDY Report Released Date/Time: Aug 19, 2024 05:56 AM Reporting Lab: [facility] [address] Performing Lab: [facility] [address] GLUCOSE,BLOOD- poct (STL) 130 mg/dL H 72-99 Aug 18, 2024 04:49 PM [facility] GLUCOSE,BLOOD-poct (STL) Specimen Type: BLOOD Comment: Test Performed by: [id number] Meter #: [id number] Ordering Provider: SILVIA REDDY Report Released Date/Time: Aug 18, 2024 05:01 PM Reporting Lab: [facility] [address] Performing Lab: [facility] [address] GLUCOSE,BLOOD- poct (STL) 129 mg/dL H 72-99 Aug 18, 2024 11:23 AM [facility] GLUCOSE,BLOOD-poct (STL) Specimen Type: BLOOD Comment: Test Performed by: [id number] Meter #: [id number] Ordering Provider: SILVIA REDDY Report Released Date/Time: Aug 18, 2024 11:41 AM Reporting Lab: [facility] [address] Performing Lab: [facility] [address] GLUCOSE,BLOOD- poct (STL) 180 mg/dL H Aug 18, 2024 05:08 AM [facility] GLUCOSE,BLOOD-poct (STL) Specimen Type: BLOOD Comment: Test Performed by: [id number] Meter #: [id number] Ordering Provider: SILVIA REDDY Report Released Date/Time: Aug 18, 2024 05:31 AM Reporting Lab: [facility] [address] Performing Lab: [facility] [address] GLUCOSE,BLOOD- poct (STL) 127 mg/dL H Aug 17, 2024 07:32 PM [facility] GLUCOSE,BLOOD-poct (STL) Specimen Type: BLOOD Comment: Test Performed by: [id number] Meter #: [id number] Ordering Provider: SILVIA REDDY Report Released Date/Time: Aug 17, 2024 07:59 PM Reporting Lab: [facility] [address] Performing Lab: [facility] [address] GLUCOSE,BLOOD- poct (STL) 154 mg/dL H Aug 17, 2024 04:24 PM [facility] GLUCOSE,BLOOD-poct (STL) Specimen Type: BLOOD Comment: Test Performed by: [id number] Meter #: [id number] Ordering Provider: SILVIA REDDY Report Released Date/Time: Aug 17, 2024 04:35 PM Reporting Lab: [facility] [address] Performing Lab: [facility] [address] GLUCOSE,BLOOD- poct (STL) 178 mg/dL H Aug 17, 2024 05:09 AM [facility] GLUCOSE,BLOOD-poct (STL) Specimen Type: BLOOD Comment: Test Performed by: [id number] Meter #: [id number] Ordering Provider: SILVIA REDDY Report Released Date/Time: Aug 17, 2024 05:54 AM Reporting Lab: [facility] [address] Performing Lab: [facility] [address] GLUCOSE,BLOOD- poct (STL) 124 mg/dL H -Aug 16, 2024 07:40 PM [facility] GLUCOSE,BLOOD-poct (STL) Specimen Type: BLOOD Comment: Test Performed by: [id number] Meter #: [id number] Ordering Provider: SILVIA REDDY Report Released Date/Time: Aug 16, 2024 08:28 PM Reporting Lab: [facility] [address] Performing Lab: [facility] [address] GLUCOSE,BLOOD- poct (STL) 144 mg/dL H -Aug 16, 2024 04:19 PM [facility] GLUCOSE,BLOOD-poct (STL) Specimen Type: BLOOD Comment: Test Performed by: [id number] Meter #: [id number] Ordering Provider: SLIVIA REDDY Report Released Date/Time: Aug 16, 2024 04:45 PM Reporting Lab: [facility] [address] Performing Lab: [facility] [address] GLUCOSE,BLOOD- poct (STL) 138 mg/dL H -Aug 16, 2024 11:52 AM [facility] GLUCOSE,BLOOD-poct (STL) Specimen Type: BLOOD Comment: Test Performed by: [id number] Meter #: [id number] Ordering Provider: SILVIA REDDY Report Released Date/Time: Aug 16, 2024 12:04 PM Reporting Lab: [facility] [address] Performing Lab: [facility] [address] GLUCOSE,BLOOD- poct (STL) 135 mg/dL H 72-Aug 16, 2024 05:24 AM [facility] GLUCOSE,BLOOD-poct (STL) Specimen Type: BLOOD Comment: Test Performed by: [id number] Meter #: [id number] Ordering Provider: SILVIA REDDY Report Released Date/Time: Aug 16, 2024 05:38 AM Reporting Lab: [facility] [address] Performing Lab: [facility] [address] GLUCOSE,BLOOD- poct (STL) 151 mg/dL H -Aug 15, 2024 07:31 PM [facility] GLUCOSE,BLOOD-poct (STL) Specimen Type: BLOOD Comment: Test Performed by: [id number] Meter #: [id number] Ordering Provider: SILVIA REDDY Report Released Date/Time: Aug 15, 2024 08:07 PM Reporting Lab: [facility] [address] Performing Lab: [facility] [address] GLUCOSE,BLOOD- poct (STL) 173 mg/dL H 72-99 Aug 15, 2024 04:18 PM [facility] GLUCOSE,BLOOD-poct (STL) Specimen Type: BLOOD Comment: Test Performed by: [id number] Meter #: [id number] Ordering Provider: SILVIA REDDY Report Released Date/Time: Aug 15, 2024 04:59 PM Reporting Lab: [facility] [address] Performing Lab: [facility] [address] GLUCOSE,BLOOD- poct (STL) 136 mg/dL H -Aug 15, 2024 04:16 PM [facility] GLUCOSE,BLOOD-poct (STL) Specimen Type: BLOOD Comment: Test Performed by: [id number] Meter #: [id number] Ordering Provider: SILVIA REDDY Report Released Date/Time: Aug 15, 2024 04:59 PM Reporting Lab: [facility] [address] Performing Lab: [facility] [address] GLUCOSE,BLOOD- poct (STL) 194 mg/dL H Aug 15, 2024 11:39 AM [facility] GLUCOSE,BLOOD-poct (STL) Specimen Type: BLOOD Comment: Test Performed by: [id number] Meter #: [id number] Ordering Provider: SILVIA REDDY Report Released Date/Time: Aug 15, 2024 12:00 PM Reporting Lab: [facility] [address] Performing Lab: [facility] [address] GLUCOSE,BLOOD- poct (STL) 127 mg/dL H Aug 15, 2024 05:07 AM [facility] GLUCOSE,BLOOD-poct (STL) Specimen Type: BLOOD Comment: Test Performed by: [id number] Meter #: [id number] Ordering Provider: SILVIA REDDY Report Released Date/Time: Aug 15, 2024 06:14 AM Reporting Lab: [facility] [address] Performing Lab: [facility] [address] GLUCOSE,BLOOD- poct (STL) 151 mg/dL H Aug 14, 2024 04:22 PM [facility] GLUCOSE,BLOOD-poct (STL) Specimen Type: BLOOD Comment: Test Performed by: [id number] Meter #: [id number] Ordering Provider: SILVIA REDDY Report Released Date/Time: Aug 14, 2024 04:52 PM Reporting Lab: [facility] [address] Performing Lab: [facility] [address] GLUCOSE,BLOOD- poct (STL) 129 mg/dL H 72-99 Aug 14, 2024 11:21 AM [facility] GLUCOSE,BLOOD-poct (STL) Specimen Type: BLOOD Comment: Test Performed by: [id number] Meter #: [id number] Ordering Provider: SILVIA REDDY Report Released Date/Time: Aug 14, 2024 11:37 AM Reporting Lab: [facility] [address] Performing Lab: [facility] [address] GLUCOSE,BLOOD- poct (STL) 135 mg/dL H 72-99 Aug 14, 2024 06:59 AM [facility] QUANTIFERON-TB,4 [...] For additional information, please refer to http://education. [employer]. [employer]/faq/KQQ626 (This link is being provided for information/ educational purposes only.) Test Performed by [employer] [facility], [address] [place], [place] Tommie Garcia M.D., Ph.D., Director of Laboratories , [facility] [id number] Ordering Provider: SILVIA REDDY Report Released Date/Time: Aug 11, 2024 03:58 PM Reporting Lab: [facility] [address] [facility] [address] Performing Lab: [facility] [address] [facility] .NIL - QUANTIFERON 0.04 [IU]/mL .MITOGEN-NIL 0.39 [IU]/mL .QUANTIFERON INDETERMINATE NEGATIVE .TB1-NIL <0.00 [IU]/mL .TB2-NIL <0.00 [IU]/mL Aug 14, 2024 06:59 AM [facility] B12 Specimen Type: SERUM No comment entered. Ordering Provider: SILVIA REDDY Report Released Date/Time: Aug 11, 2024 03:58 PM Reporting Lab: [facility] [address] Performing Lab: [facility] [place] [id number] B12 757 pg/mL 213-816 Aug 14, 2024 06:59 AM [facility] MAGNESIUM Specimen Type: PLASMA Comment: No hemolysis noted. Ordering Provider: SILVIA REDDY Report Released Date/Time: Aug 11, 2024 03:58 PM Reporting Lab: [facility] [address] Performing Lab: [facility] [address] MAGNESIUM 1.9 mg/dL 1.6-2.6 Aug 14, 2024 06:59 AM [facility] FOLATE (L-MA) Specimen Type: SERUM No comment entered. Ordering Provider: SILVIA REDDY Report Released Date/Time: Aug 11, 2024 03:58 PM Reporting Lab: [facility] [place] [address] Performing Lab: [facility] [place] [address] FOLATE (L-MA) 6.8 ng/mL L 7-20 Aug 14, 2024 06:59 AM [facility] VITAMIN D, 25-HYDROXY Specimen Type: SERUM No comment entered. Ordering Provider: SILVIA REDDY Report Released Date/Time: Aug 11, 2024 03:58 PM Reporting Lab: [facility] [place] [address] Performing Lab: [facility] [place] [address] VITAMIN D, 25-HYDROXY 8.9 ng/mL L 30-96 Aug 14, 2024 06:59 AM [facility] COMPREHENSIVE METABOLIC PANEL Specimen Type: PLASMA Comment: No hemolysis noted. Ordering Provider: SILVIA REDDY Report Released Date/Time: Aug 11, 2024 03:58 PM Reporting Lab: [facility] [place] [address] Performing Lab: [facility] [place] [address] CREATININE 0.75 mg/dL 0.70-1.30 UREA NITROGEN 13.6 [...] 95.88 >60 Aug 14, 2024 06:59 AM [facility] CBC Specimen Type: BLOOD No comment entered. Ordering Provider: SILVIA REDDY Report Released Date/Time: Aug 11, 2024 03:58 PM Reporting Lab: [facility] [address] Performing Lab: [facility] [facility] [address] WBC 4.1 10*3/uL 3.6-11.2 RBC 3.20 10*6/uL [...] 10*3/uL 0.00-0.20 Aug 14, 2024 05:08 AM [facility] GLUCOSE,BLOOD-poct (STL) Specimen Type: BLOOD Comment: Test Performed by: [id number] Meter #: [id number] Ordering Provider: SILVIA REDDY Report Released Date/Time: Aug 14, 2024 05:52 AM Reporting Lab: [facility] [address] Performing Lab: [facility] [facility] [address] GLUCOSE,BLOOD- poct (STL) 135 mg/dL H -Aug 13, 2024 04:27 PM [facility] GLUCOSE,BLOOD-poct (STL) Specimen Type: BLOOD Comment: Test Performed by: [id number] Meter #: [id number] Ordering Provider: SILVIA REDDY Report Released Date/Time: Aug 13, 2024 04:41 PM Reporting Lab: [facility] [facility] [address] Performing Lab: [facility] [facility] [address] GLUCOSE,BLOOD- poct (STL) 181 mg/dL H Aug 13, 2024 11:33 AM [facility] GLUCOSE,BLOOD-poct (STL) Specimen Type: BLOOD Comment: Test Performed by: [id number] Meter #: [id number] Ordering Provider: SILVIA REDDY Report Released Date/Time: Aug 13, 2024 03:55 PM Reporting Lab: [facility] [address] Performing Lab: [facility] [facility] [address] GLUCOSE,BLOOD- poct (STL) 140 mg/dL H Aug 13, 2024 05:54 AM [facility] GLUCOSE,BLOOD-poct (STL) Specimen Type: BLOOD Comment: Test Performed by: [id number] Meter #: [id number] Ordering Provider: SILVIA REDDY Report Released Date/Time: Aug 13, 2024 06:20 AM Reporting Lab: [facility] [address] Performing Lab: [facility] [address] GLUCOSE,BLOOD- poct (STL) 112 mg/dL H -Aug 12, 2024 04:35 PM [facility] GLUCOSE,BLOOD-poct (STL) Specimen Type: BLOOD Comment: Test Performed by: [id number] Meter #: [id number] Ordering Provider: SILVIA REDDY Report Released Date/Time: Aug 12, 2024 04:47 PM Reporting Lab: [facility] [address] Performing Lab: [facility] [address] GLUCOSE,BLOOD- poct (STL) 128 mg/dL H -Aug 12, 2024 11:26 AM [facility] GLUCOSE,BLOOD-poct (STL) Specimen Type: BLOOD Comment: Test Performed by: [id number] Meter #: [id number] Ordering Provider: SILVIA REDDY Report Released Date/Time: Aug 12, 2024 11:45 AM Reporting Lab: [facility] [address] Performing Lab: [facility] [address] GLUCOSE,BLOOD- poct (STL) 188 mg/dL H -Aug 12, 2024 06:13 AM [facility] GLUCOSE,BLOOD-poct (STL) Specimen Type: BLOOD Comment: Test Performed by: [id number] Meter #: [id number] Ordering Provider: SILVIA REDDY Report Released Date/Time: Aug 12, 2024 06:25 AM Reporting Lab: [facility] [address] Performing Lab: [facility] [address] GLUCOSE,BLOOD- poct (STL) 116 mg/dL H -Aug 11, 2024 04:10 PM [facility] GLUCOSE,BLOOD-poct (STL) Specimen Type: BLOOD Comment: Test Performed by: [id number] Meter #: [id number] Ordering Provider: SILVIA REDDY Report Released Date/Time: Aug 11, 2024 04:27 PM Reporting Lab: [facility] [address] Performing Lab: [facility] [address] GLUCOSE,BLOOD- poct (STL) 184 mg/dL H 72-99 [...] Aug 11, 2024 02:03 PM Reporting Lab: [facility] [address] [place] [id number] Performing Lab: [address] [address] MRSA SURVL NARES DNA Negative Negative Vital Signs: All taken on the encounter date This section contains inpatient and outpatient Vital Signs collected on the date of the Encounter. Date/Time Temperature Pulse Blood Pressure Respiratory Rate SP02 Pain Height Weight Body Mass Index Source Aug 22, 2024 07:17 PM 98.1 74 117/73 20 95 [facility] Aug 22, 2024 10:30 AM 98.1 55 104/61 18 96 [facility] Aug 22, 2024 05:18 AM 97.9 76 120/77 20 95 [facility] Advance Directives: [...] 19, 2017 ADVANCE DIRECTIVE DISCUSSION ERICK BARDALES [facility] Encounter Notes: All associated encounter notes This section contains the clinical notes associated to the Encounter. Date/Time Encounter Note(s) Provider Source Aug 22, 2024 10:26 AM PHYSICAL THERAPY DISCHARGE NOTE: LOCAL TITLE: PT DISCHARGE STL STANDARD TITLE: PHYSICAL THERAPY DISCHARGE NOTE DATE OF NOTE: AUG 22, 2024@10:26 ENTRY DATE: AUG 22, 2024@10:26:52 AUTHOR: GERRY CONRAD COSIGNER: URGENCY: STATUS: COMPLETED PHYSICAL THERAPY: discharge note TIME: 1100 TOTAL TREATMENT TIME: 10 minutes BILLING: ther-act x 1 Visit #:7 Missed:0 Eval Date: 08/14/2024 Progress Note Due: [...] and subtotal occlusion of RCA), transferred to [facility] and underwent CABG x3 on07/24. Has [...] referred for further PT and OT at [facility]. Interval history Patient is seen [...] at home. PMH: 1) Asthma (SNOMED CT 821427999) 2) Gastro-esophageal reflux disease (SNOMED CT 189685031) 3) Peptic Ulcer Disease * (ICD-9-CM 533.90) 4) Hypertension (SNOMED CT 97597989) 5) Neoplasm of pituitary gland (SNOMED CT 876814658) 6) Hyperlipidemia (SNOMED CT 43819860) 7) Erectile dysfunction associated with type 2 [...] 21) Obstructive Sleep Apnea of Adult (SCT 4413334943626) Equipment Owned: Cane, F22 S: [place] handed off from OT. Pain: None throughout --Patient goal(s): Pt reports to walk Learning preferences: [x] Verbal, [x] Visual/Demonstration, [] Written O: PT educates vet on use of walkasins. Vet declines by saying no, I don't like the way they look. PT attempts to get to choose an activity/agree on an activity to complete. reports there's nothing I need to work on. I just have to go slow when I use the stairs. PT encourages vet to trial stairs. Vet declines. Vet declines [employer], reports I just did the arm bike in there. Vet voices being down because I can't drive until September 29. GAIT: - F22 x 300' on/off elevator, completing seat xfer with IND. TRANSFERs: -[facility] Inpatient Rehab Facility Patient Assessment Instrument (IRF-JERO): [...] GOAL Roll left and right: 4 6 6 Sit to lyin 6 6 Lying to sitting-side of bed: 4 6 6 Sit to stand: 4 6 6 Chair/hak-re-tuvqi transf: 4 6 6 Toilet transfer: Car transfer: Comments: DOES PATIENT WALK? [ ] No, walking goal IS NOT clinically indicated (skip to WC section) [ ] No, walking goal IS clinically indicated (complete walking section) [x] Yes (complete walking section) WALKING ADM CURRENT GOAL Walk 10: 4 6 6 Walk 50 w/two turns: 4 6 6 Walk 150: 88 6 6 Walking 10uneven surf: 3 4 6 1 Step (curb): 3 4 6 4 Steps: 3 4 6 12 Steps: 88 4 88 Picking up object: 1 4 4 Comments: DOES PATIENT USE WHEELCHAIR/ SCOOTER? [ ] NO [x] YES (complete WC section) WHEELCHAIR ADM CURRENT GOAL Wheel 50 w/ two turns: 4 6 6 Wheel 150 feet: 2 6 6 WHEELCHAIR USED: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
--- OUTSIDE RECORDS SUMMARY | 2024-11-17 04:08 | XMS_ITS | Encounter Summary ---
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 [place] Ava [facility] Aug 22, 2024 01:56 PM SECONDARY Essential (primary) hypertension NADEGE REDDY Santos Ava [facility] Aug 22, 2024 01:56 PM SECONDARY Obesity, unspecified NADEGE REDDY [facility] Aug 22, 2024 01:56 PM SECONDARY Type 2 diabetes w diabetic autonomic (poly)neuropathy NADEGE REDDY Santos [facility] Aug 22, 2024 01:56 PM SECONDARY Unilateral post-traumatic osteoarthritis, left knee NADEGE REDDY [facility] Plan of Treatment: Future Appointments (+ 6 months) and Future Tests (+/- 45 days) The Plan of Treatment section includes [facility] care activities for the [facility] [place] [facility] This section includes future appointments and future orders which are active, pending or scheduled. Future Appointments This section includes appointments that were scheduled to occur 6 months from the date of the Encounter, up to a maximum of 20 appointments. The data comes from all [facility] facilities. Appointment Date/Time Appointment Type Appointme nt Facility Name Aug 24, 2024 10:00 AM AMBULATORY - MEDICINE [facility] Aug 24, 2024 10:30 AM AMBULATORY - MEDICINE [facility] Aug 30, 2024 09:30 AM AMBULATORY - MEDICINE [facility] Aug 31, 2024 01:00 PM AMBULATORY - SURGERY [facility] Sep 21, 2024 01:30 PM AMBULATORY - MEDICINE [facility] Sep 22, 2024 11:00 AM AMBULATORY - MEDICINE [facility] Sep 29, 2024 12:30 PM AMBULATORY - MEDICINE [facility] Oct 02, 2024 09:30 AM AMBULATORY - MEDICINE [facility] Nov 20, 2024 10:30 AM AM[facility]UL[facility]ORY - SUR[facility]ERY [facility] Nov 21, 2024 10:00 AM AMBULATORY - NONE [facility] Dec 11, 2024 10:30 AM AMBULATORY - MEDICINE [facility] Active, Pending, and Scheduled Orders This section includes a listing of several types of active, pending, and scheduled orders, including clinic medications orders, diagnostic test orders, procedure orders and consult orders; where the start date of the order is 45 days before the date of the Encounter or 45 days after the date of theEncounter. The data comes from all [place] treatment facilities. Test Date/Time Test Type Test Details Facility Name Aug 02, 2024 12:00 AM Laboratory - Chemistry Order CBC BLOOD STAT SP [facility] Aug 02, 2024 12:00 AM Laboratory - Chemistry Order COMPREHENSIVE METABOLIC PANEL GREEN LI/HEP BLD/PLAS PLASMA SP [facility] Aug 17, 2024 03:47 PM Consult Order [facility] Cons Bedside [facility] Lab Results: +/- 30 days of the encounter This section includes the Chemistry and Hematology Lab Results on record with [place] for the patient. Radiology Reports and Pathology Reports are provided separately, in subsequent sections. Lab Results This section contains the Chemistry/Hematology Results that were resulted 30 days before or 30 daysafter the date of the Encounter. Date/Time Source Result Type Result - Unit Interpretation Reference Range Comment Aug 23, 2024 08:21 AM [facility] MAGNESIUM Specimen Type: PLASMA No comment entered. Ordering Provider: SIMEON REDDY Report Released Date/Time: Aug 22, 2024 11:26 AM Reporting Lab: [facility] [address] Performing Lab: [facility] [address] MAGNESIUM 1.8 mg/dL 1.6-2.6 Aug 23, 2024 08:21 AM [facility] CBC Specimen Type: BLOOD No comment entered. Ordering Provider: SIMEON REDDY Report Released Date/Time: Aug 22, 2024 11:19 AM Reporting Lab: [facility] [address] Performing Lab: [facility] [address] WBC 4.0 10*3/uL 3.6-11.2 RBC 3.65 10*6/uL [...] 10*3/uL 0.00-0.20 Aug 23, 2024 05:12 AM [facility] GLUCOSE,BLOOD-poct (STL) Specimen Type: BLOOD Comment: Test Performed by: [id number] Meter #: [id number] Ordering Provider: SIMEON REDDY Report Released Date/Time: Aug 23, 2024 05:23 AM Reporting Lab: [facility] [address] Performing Lab: [facility] [address] GLUCOSE,BLOOD- poct (STL) 99 mg/dL 72-99 Aug 23, 2024 02:45 AM [facility] OCCULT BLOOD FIT X1 SCREEN Specimen Type: FECES No comment entered. Ordering Provider: SIMEON REDDY Report Released Date/Time: Aug 22, 2024 11:23 AM Reporting Lab: [facility] [address] [address] Performing Lab: [address] [address] OCCULT BLOOD (FIT) #1 OF 1 Negative Negative Aug 22, 2024 07:30 PM [facility] OCCULT BLOOD FIT X1 SCREEN Specimen Type: FECES No comment entered. Ordering Provider: SIMEON REDDY Report Released Date/Time: Aug 22, 2024 11:23 AM Reporting Lab: [address] [address] Performing Lab: [address] [address] OCCULT BLOOD (FIT) #1 OF 1 Negative Negative Aug 22, 2024 06:15 PM [facility] OCCULT BLOOD FIT X1 SCREEN Specimen Type: FECES No comment entered. Ordering Provider: SIMEON REDDY Report Released Date/Time: Aug 22, 2024 11:23 AM Reporting Lab: [address] [address] Performing Lab: [address] [address] OCCULT BLOOD (FIT) #1 OF 1 Negative Negative Aug 22, 2024 04:24 PM [facility] GLUCOSE,BLOOD-poct (STL) Specimen Type: BLOOD Comment: Test Performed by: [id number] Meter #: [id number] Ordering Provider: SIMEON REDDY Report Released Date/Time: Aug 22, 2024 04:36 PM Reporting Lab: [facility] [address] Performing Lab: [facility] [address] GLUCOSE,BLOOD- poct (STL) 176 mg/dL H 72-99 Aug 22, 2024 04:23 PM [facility] GLUCOSE,BLOOD-poct (STL) Specimen Type: BLOOD Comment: Test Performed by: [id number] Meter #: [id number] Ordering Provider: SIMEON REDDY Report Released Date/Time: Aug 22, 2024 04:36 PM Reporting Lab: [facility] [address] Performing Lab: [facility] [address] GLUCOSE,BLOOD- poct (STL) 221 mg/dL H 72-99 Aug 22, 2024 11:15 AM [facility] GLUCOSE,BLOOD-poct (STL) Specimen Type: BLOOD Comment: Test Performed by: [id number] Meter #: [id number] Ordering Provider: SIMEON REDDY Report Released Date/Time: Aug 22, 2024 11:27 AM Reporting Lab: [facility] [address] Performing Lab: [facility] [address] GLUCOSE,BLOOD- poct (STL) 140 mg/dL H 72-99 Aug 22, 2024 08:03 AM [facility] FERRITIN Specimen Type: SERUM No comment entered. Ordering Provider: JUDIT PERKINS Report Released Date/Time: Aug 18, 2024 11:01 AM Reporting Lab: [facility] [address] [facility] [address] Performing Lab: [address] [address] FERRITIN 79.50 ng/mL 22-275 Aug 22, 2024 08:03 AM [facility] B12 Specimen Type: SERUM No comment entered. Ordering Provider: JUDIT PERKINS Report Released Date/Time: Aug 18, 2024 11:01 AM Reporting Lab: [facility] [address] Performing Lab: [facility] [address] B12 631 pg/mL 213-816 Aug 22, 2024 08:03 AM [facility] IRON/TIBC PROFILE Specimen Type: SERUM No comment entered. Ordering Provider: JUDIT PERKINS Report Released Date/Time: Aug 18, 2024 11:01 AM Reporting Lab: [facility] [address] [place] [address] Performing Lab: [address] [address] TIBC 283 ug/dL 250-450 TRANSFERRIN 226 mg/dL 163-344 IRON SATURATION 7 L 20-50 IRON 19 ug/dL L 65-175 Aug 22, 2024 08:03 AM [facility] COMPREHENSIVE METABOLIC PANEL Specimen Type: PLASMA Comment: No hemolysis noted. Ordering Provider: SIMEON REDDY Report Released Date/Time: Aug 17, 2024 01:18 PM Reporting Lab: [address] [address] Performing Lab: [address] [address] CREATININE 0.80 mg/dL 0.7-1.3 UREA NITROGEN 9.7 [...] 94.0 >60 Aug 22, 2024 08:03 AM [facility] CBC Specimen Type: BLOOD No comment entered. Ordering Provider: SIMEON REDDY Report Released Date/Time: Aug 17, 2024 01:18 PM Reporting Lab: [facility] #[facility] [address] Performing Lab: [facility] #1 [facility] [address] WBC 3.5 10*3/uL L 3.6-11.2 RBC 3.23 [...] NRBC% 0 Aug 22, 2024 05:03 AM [facility] GLUCOSE,BLOOD-poct (STL) Specimen Type: BLOOD Comment: Test Performed by: [id number] Meter #: [id number] Ordering Provider: SIMEON REDDY Report Released Date/Time: Aug 22, 2024 06:17 AM Reporting Lab: [facility] #[facility] [address] Performing Lab: [facility] [address] GLUCOSE,BLOOD- poct (STL) 170 mg/dL H 72-99 Aug 21, 2024 04:32 PM [facility] GLUCOSE,BLOOD-poct (STL) Specimen Type: BLOOD Comment: Test Performed by: [id number] Meter #: [id number] Ordering Provider: SIMEON REDDY Report Released Date/Time: Aug 21, 2024 04:49 PM Reporting Lab: [facility] #1 [facility] [address] Performing Lab: [facility] [address] GLUCOSE,BLOOD- poct (STL) 169 mg/dL H 72-Aug 21, 2024 11:53 AM [facility] GLUCOSE,BLOOD-poct (STL) Specimen Type: BLOOD Comment: Test Performed by: [id number] Meter #: [id number] Ordering Provider: SIMEON REDDY Report Released Date/Time: Aug 21, 2024 12:11 PM Reporting Lab: [facility] [address] Performing Lab: [facility] [facility] [address] GLUCOSE,BLOOD- poct (STL) 149 mg/dL H -Aug 21, 2024 05:10 AM [facility] GLUCOSE,BLOOD-poct (STL) Specimen Type: BLOOD Comment: Test Performed by: [id number] Meter #: [id number] Ordering Provider: SIMEON REDDY Report Released Date/Time: Aug 21, 2024 05:27 AM Reporting Lab: [facility] [address] Performing Lab: [facility] [address] GLUCOSE,BLOOD- poct (STL) 118 mg/dL H 72-Aug 20, 2024 04:38 PM [facility] GLUCOSE,BLOOD-poct (STL) Specimen Type: BLOOD Comment: Test Performed by: [id number] Meter #: [id number] Ordering Provider: SIMEON REDDY Report Released Date/Time: Aug 21, 2024 01:55 AM Reporting Lab: [facility] [address] Performing Lab: [facility] [address] GLUCOSE,BLOOD- poct (STL) 169 mg/dL H 72-Aug 20, 2024 04:36 PM [facility] GLUCOSE,BLOOD-poct (STL) Specimen Type: BLOOD Comment: Test Performed by: [id number] Meter #: [id number] Ordering Provider: SIMEON REDDY Report Released Date/Time: Aug 21, 2024 01:55 AM Reporting Lab: [facility] [address] Performing Lab: [facility] #[facility] [address] GLUCOSE,BLOOD- poct (STL) 395 mg/dL H -Aug 20, 2024 11:45 AM [facility] GLUCOSE,BLOOD-poct (STL) Specimen Type: BLOOD Comment: Test Performed by: [id number] Meter #: [id number] Ordering Provider: SIMEON REDDY Report Released Date/Time: Aug 20, 2024 11:56 AM Reporting Lab: [facility] [address] Performing Lab: [facility] #[facility] [address] GLUCOSE,BLOOD- poct (STL) 169 mg/dL H -Aug 20, 2024 05:06 AM [facility] GLUCOSE,BLOOD-poct (STL) Specimen Type: BLOOD Comment: Test Performed by: [id number] Meter #: [id number] Ordering Provider: SIMEON REDDY Report Released Date/Time: Aug 20, 2024 06:05 AM Reporting Lab: [facility] [address] Performing Lab: [facility] #[facility] [address] GLUCOSE,BLOOD- poct (STL) 115 mg/dL H -Aug 19, 2024 04:23 PM [facility] GLUCOSE,BLOOD-poct (STL) Specimen Type: BLOOD Comment: Test Performed by: [id number] Meter #: [id number] Ordering Provider: SIMEON REDDY Report Released Date/Time: Aug 19, 2024 05:54 PM Reporting Lab: [facility] #[facility] [address] Performing Lab: [facility] [address] GLUCOSE,BLOOD- poct (STL) 137 mg/dL H -Aug 19, 2024 11:28 AM [facility] GLUCOSE,BLOOD-poct (STL) Specimen Type: BLOOD Comment: Test Performed by: [id number] Meter #: [id number] Ordering Provider: SIMEON REDDY Report Released Date/Time: Aug 19, 2024 11:51 AM Reporting Lab: [facility] [address] Performing Lab: [facility] [address] GLUCOSE,BLOOD- poct (STL) 190 mg/dL H Aug 19, 2024 05:21 AM [facility] GLUCOSE,BLOOD-poct (STL) Specimen Type: BLOOD Comment: Test Performed by: [id number] Meter #: [id number] Ordering Provider: SIMEON REDDY Report Released Date/Time: Aug 19, 2024 05:56 AM Reporting Lab: [facility] [address] Performing Lab: [facility] #[facility] [address] GLUCOSE,BLOOD- poct (STL) 130 mg/dL H Aug 18, 2024 04:49 PM [facility] GLUCOSE,BLOOD-poct (STL) Specimen Type: BLOOD Comment: Test Performed by: [id number] Meter #: [id number] Ordering Provider: SIMEON REDDY Report Released Date/Time: Aug 18, 2024 05:01 PM Reporting Lab: [facility] [address] Performing Lab: [facility] #[facility] [address] GLUCOSE,BLOOD- poct (STL) 129 mg/dL H 72-Aug 18, 2024 11:23 AM [facility] GLUCOSE,BLOOD-poct (STL) Specimen Type: BLOOD Comment: Test Performed by: [id number] Meter #: [id number] Ordering Provider: SIMEON REDDY Report Released Date/Time: Aug 18, 2024 11:41 AM Reporting Lab: [facility] [address] Performing Lab: [facility] [address] GLUCOSE,BLOOD- poct (STL) 180 mg/dL H Aug 18, 2024 05:08 AM [facility] GLUCOSE,BLOOD-poct (STL) Specimen Type: BLOOD Comment: Test Performed by: [id number] Meter #: [id number] Ordering Provider: SIMEON REDDY Report Released Date/Time: Aug 18, 2024 05:31 AM Reporting Lab: [facility] [address] Performing Lab: [facility] #[facility] [address] GLUCOSE,BLOOD- poct (STL) 127 mg/dL H -Aug 17, 2024 07:32 PM [facility] GLUCOSE,BLOOD-poct (STL) Specimen Type: BLOOD Comment: Test Performed by: [id number] Meter #: [id number] Ordering Provider: SIMEON REDDY Report Released Date/Time: Aug 17, 2024 07:59 PM Reporting Lab: [facility] [address] Performing Lab: [facility] [address] GLUCOSE,BLOOD- poct (STL) 154 mg/dL H -Aug 17, 2024 04:24 PM [facility] GLUCOSE,BLOOD-poct (STL) Specimen Type: BLOOD Comment: Test Performed by: [id number] Meter #: [id number] Ordering Provider: SIMEON REDDY Report Released Date/Time: Aug 17, 2024 04:35 PM Reporting Lab: [facility] [address] Performing Lab: [facility] [address] GLUCOSE,BLOOD- poct (STL) 178 mg/dL H -Aug 17, 2024 05:09 AM [facility] GLUCOSE,BLOOD-poct (STL) Specimen Type: BLOOD Comment: Test Performed by: [id number] Meter #: [id number] Ordering Provider: SIMEON REDDY Report Released Date/Time: Aug 17, 2024 05:54 AM Reporting Lab: [facility] [address] Performing Lab: [facility] #[facility] [address] GLUCOSE,BLOOD- poct (STL) 124 mg/dL H Aug 16, 2024 07:40 PM [facility] GLUCOSE,BLOOD-poct (STL) Specimen Type: BLOOD Comment: Test Performed by: [id number] Meter #: [id number] Ordering Provider: SIMEON REDDY Report Released Date/Time: Aug 16, 2024 08:28 PM Reporting Lab: [facility] [address] Performing Lab: [facility] [address] GLUCOSE,BLOOD- poct (STL) 144 mg/dL H -Aug 16, 2024 04:19 PM [facility] GLUCOSE,BLOOD-poct (STL) Specimen Type: BLOOD Comment: Test Performed by: [id number] Meter #: [id number] Ordering Provider: SIMEON REDDY Report Released Date/Time: Aug 16, 2024 04:45 PM Reporting Lab: [facility] [address] Performing Lab: [facility] [address] GLUCOSE,BLOOD- poct (STL) 138 mg/dL H -Aug 16, 2024 11:52 AM [facility] GLUCOSE,BLOOD-poct (STL) Specimen Type: BLOOD Comment: Test Performed by: [id number] Meter #: [id number] Ordering Provider: SIMEON REDDY Report Released Date/Time: Aug 16, 2024 12:04 PM Reporting Lab: [facility] [address] Performing Lab: [facility] [address] GLUCOSE,BLOOD- poct (STL) 135 mg/dL H Aug 16, 2024 05:24 AM [facility] GLUCOSE,BLOOD-poct (STL) Specimen Type: BLOOD Comment: Test Performed by: [id number] Meter #: [id number] Ordering Provider: SIMEON REDDY Report Released Date/Time: Aug 16, 2024 05:38 AM Reporting Lab: [facility] [address] Performing Lab: [facility] [address] GLUCOSE,BLOOD- poct (STL) 151 mg/dL H Aug 15, 2024 07:31 PM [facility] GLUCOSE,BLOOD-poct (STL) Specimen Type: BLOOD Comment: Test Performed by: [id number] Meter #: [id number] Ordering Provider: SIMEON REDDY Report Released Date/Time: Aug 15, 2024 08:07 PM Reporting Lab: [facility] [address] Performing Lab: [facility] [address] GLUCOSE,BLOOD- poct (STL) 173 mg/dL H Aug 15, 2024 04:18 PM [facility] GLUCOSE,BLOOD-poct (STL) Specimen Type: BLOOD Comment: Test Performed by: [id number] Meter #: [id number] Ordering Provider: SIMEON REDDY Report Released Date/Time: Aug 15, 2024 04:59 PM Reporting Lab: [facility] [address] Performing Lab: [facility] [address] GLUCOSE,BLOOD- poct (STL) 136 mg/dL H Aug 15, 2024 04:16 PM [facility] GLUCOSE,BLOOD-poct (STL) Specimen Type: BLOOD Comment: Test Performed by: [id number] Meter #: [id number] Ordering Provider: SIMEON REDDY Report Released Date/Time: Aug 15, 2024 04:59 PM Reporting Lab: [facility] [address] Performing Lab: [facility] [facility] [address] GLUCOSE,BLOOD- poct (STL) 194 mg/dL H Aug 15, 2024 11:39 AM [facility] GLUCOSE,BLOOD-poct (STL) Specimen Type: BLOOD Comment: Test Performed by: [id number] Meter #: [id number] Ordering Provider: SIMEON REDDY Report Released Date/Time: Aug 15, 2024 12:00 PM Reporting Lab: [facility] [facility] [address] Performing Lab: [facility] [address] GLUCOSE,BLOOD- poct (STL) 127 mg/dL H 72-Aug 15, 2024 05:07 AM [facility] GLUCOSE,BLOOD-poct (STL) Specimen Type: BLOOD Comment: Test Performed by: [id number] Meter #: [id number] Ordering Provider: SIMEON REDDY Report Released Date/Time: Aug 15, 2024 06:14 AM Reporting Lab: [facility] [address] Performing Lab: [facility] [facility] [address] GLUCOSE,BLOOD- poct (STL) 151 mg/dL H -Aug 14, 2024 04:22 PM [facility] GLUCOSE,BLOOD-poct (STL) Specimen Type: BLOOD Comment: Test Performed by: [id number] Meter #: [id number] Ordering Provider: SIMEON REDDY Report Released Date/Time: Aug 14, 2024 04:52 PM Reporting Lab: [facility] [address] Performing Lab: [facility] [address] GLUCOSE,BLOOD- poct (STL) 129 mg/dL H -Aug 14, 2024 11:21 AM [facility] GLUCOSE,BLOOD-poct (STL) Specimen Type: BLOOD Comment: Test Performed by: [id number] Meter #: [id number] Ordering Provider: SIMEON REDDY Report Released Date/Time: Aug 14, 2024 11:37 AM Reporting Lab: [facility] [facility] [address] Performing Lab: [facility] [facility] [address] GLUCOSE,BLOOD- poct (STL) 135 mg/dL H 72-Aug 14, 2024 06:59 AM [facility] QUANTIFERON-TB,4 TUBE Specimen Type: BLOOD Comment: normalcy [...] For additional information, please refer to http://education. [employer]. Breezeplay/faq/TOE721 (This link is being provided for information/ educational purposes only.) Test Performed by [facility], [address] [place] [address] Tommie Garcia M.D., Ph.D., Director of Laboratories , [facility] [id number] Ordering Provider: SIMEON REDDY Report Released Date/Time: Aug 11, 2024 03:58 PM Reporting Lab: [facility] [address] [place] [phone] Performing Lab: [facility] [address] [place] [address] .NIL - QUANTIFERON 0.04 [IU]/mL .MITOGEN-NIL 0.39 [IU]/mL .QUANTIFERON INDETERMINATE NEGATIVE .TB1-NIL <0.00 [IU]/mL .TB2-NIL <0.00 [IU]/mL Aug 14, 2024 06:59 AM [facility] MAGNESIUM Specimen Type: PLASMA Comment: No hemolysis noted. Ordering Provider: SIMEON REDDY Report Released Date/Time: Aug 11, 2024 03:58 PM Reporting Lab: [facility]1 [facility] [address] Performing Lab: [facility]1 [facility] [phone] MAGNESIUM 1.9 mg/dL 1.6-2.6 Aug 14, 2024 06:59 AM [facility] B12 Specimen Type: SERUM No comment entered. Ordering Provider: SIMEON REDDY Report Released Date/Time: Aug 11, 2024 03:58 PM Reporting Lab: [facility]1 [facility] [address] Performing Lab: [facility]1 [facility] [address] B12 757 pg/mL 213-816 Aug 14, 2024 06:59 AM [facility] FOLATE ([facility]) Specimen Type: SERUM No comment entered. Ordering Provider: SIMEON REDDY Report Released Date/Time: Aug 11, 2024 03:58 PM Reporting Lab: [facility]1 [facility] [address] Performing Lab: [facility] [address] FOLATE ([facility]) 6.8 ng/mL L 7-20 Aug 14, 2024 06:59 AM [facility] VITAMIN D, 25-HYDROXY Specimen Type: SERUM No comment entered. Ordering Provider: SIMEON REDDY Report Released Date/Time: Aug 11, 2024 03:58 PM Reporting Lab: [facility]1 [facility] [address] Performing Lab: [facility]1 [facility] [address] VITAMIN D, 25-HYDROXY 8.9 ng/mL L 30-96 Aug 14, 2024 06:59 AM [facility] COMPREHENSIVE METABOLIC PANEL Specimen Type: PLASMA Comment: No hemolysis noted. Ordering Provider: SIMEON REDDY Report Released Date/Time: Aug 11, 2024 03:58 PM Reporting Lab: [facility]1 [facility] [address] Performing Lab: [facility] #1 [place] [phone] CREATININE 0.75 mg/dL 0.70-1.30 UREA NITROGEN 13.6 [...] 95.88 >60 Aug 14, 2024 06:59 AM [facility] CBC Specimen Type: BLOOD No comment entered. Ordering Provider: SIMOEN REDDY Report Released Date/Time: Aug 11, 2024 03:58 PM Reporting Lab: [facility] #1 [place] [phone] Performing Lab: [facility]1 [facility] [address] WBC 4.1 10*3/uL 3.6-11.2 RBC 3.20 10*6/uL [...] Aug 14, 2024 05:08 AM [facility] GLUCOSE,BLOOD-poct (STL) Specimen Type: BLOOD Comment: Test Performed by: [id number] Meter #: [id number] Ordering Provider: SIMEON REDDY Report Released Date/Time: Aug 14, 2024 05:52 AM Reporting Lab: [facility] [place] [address] Performing Lab: [facility] [place] [address] GLUCOSE,BLOOD- poct (STL) 135 mg/dL H -Aug 13, 2024 04:27 PM [facility] GLUCOSE,BLOOD-poct (STL) Specimen Type: BLOOD Comment: Test Performed by: [id number] Meter #: [id number] Ordering Provider: SIMEON REDDY Report Released Date/Time: Aug 13, 2024 04:41 PM Reporting Lab: [facility] [place] [address] Performing Lab: [facility] [place] [address] GLUCOSE,BLOOD- poct (STL) 181 mg/dL H -Aug 13, 2024 11:33 AM [facility] GLUCOSE,BLOOD-poct (STL) Specimen Type: BLOOD Comment: Test Performed by: [id number] Meter #: [id number] Ordering Provider: SIMEON REDDY Report Released Date/Time: Aug 13, 2024 03:55 PM Reporting Lab: [facility] [place] [address] Performing Lab: [facility]1 [facility] [address] GLUCOSE,BLOOD- poct (STL) 140 mg/dL H -Aug 13, 2024 05:54 AM [facility] GLUCOSE,BLOOD-poct (STL) Specimen Type: BLOOD Comment: Test Performed by: [id number] Meter #: [id number] Ordering Provider: SIMEON REDDY Report Released Date/Time: Aug 13, 2024 06:20 AM Reporting Lab: [facility]1 [facility] [address] Performing Lab: [facility]1 [facility] [address] GLUCOSE,BLOOD- poct (STL) 112 mg/dL H Aug 12, 2024 04:35 PM [facility] GLUCOSE,BLOOD-poct (STL) Specimen Type: BLOOD Comment: Test Performed by: [id number] Meter #: [id number] Ordering Provider: SIMEON REDDY Report Released Date/Time: Aug 12, 2024 04:47 PM Reporting Lab: [facility]1 [facility] [phone] Performing Lab: [facility]1 [facility] [address] GLUCOSE,BLOOD- poct (STL) 128 mg/dL H Aug 12, 2024 11:26 AM [facility] GLUCOSE,BLOOD-poct (STL) Specimen Type: BLOOD Comment: Test Performed by: [id number] Meter #: [id number] Ordering Provider: SIMEON REDDY Report Released Date/Time: Aug 12, 2024 11:45 AM Reporting Lab: [facility]1 [facility] [address] Performing Lab: [facility]1 [facility] [address] GLUCOSE,BLOOD- poct (STL) 188 mg/dL H Aug 12, 2024 06:13 AM [facility] GLUCOSE,BLOOD-poct (STL) Specimen Type: BLOOD Comment: Test Performed by: [id number] Meter #: [id number] Ordering Provider: SIMEON REDDY Report Released Date/Time: Aug 12, 2024 06:25 AM Reporting Lab: [facility]1 [facility] [address] Performing Lab: [facility] #1 [facility] [address] GLUCOSE,BLOOD- poct (STL) 116 mg/dL H 72-Aug 11, 2024 04:10 PM [facility] GLUCOSE,BLOOD-poct (STL) Specimen Type: BLOOD Comment: Test Performed by: [id number] Meter #: [id number] Ordering Provider: SIMEON REDDY Report Released Date/Time: Aug 11, 2024 04:27 PM Reporting Lab: [facility]1 [facility] [address] Performing Lab: [facility] #1 [facility] [address] GLUCOSE,BLOOD- poct (STL) 184 mg/dL H 72-Aug 11, 2024 01:44 PM [facility] MRSA SURVL NARES DNA Specimen Type: NARES [...] 11, 2024 02:03 PM Reporting Lab: [address] [address] Performing Lab: [address] [address] MRSA SURVL NARES DNA Negative Negative Vital Signs: All taken on the encounter date This section contains inpatient and outpatient Vital Signs collected on the date of the Encounter. Date/Time Temperature Pulse Blood Pressure Respiratory Rate SP02 Pain Height Weight Body Mass Index Source Aug 22, 2024 07:17 PM 98.1 74 117/73 20 95 [facility] Aug 22, 2024 10:30 AM 98.1 55 104/61 18 96 [facility] Aug 22, 2024 05:18 AM 97.9 76 120/77 20 95 [facility] Advance Directives: All historical [...] DIRECTIVE DISCUSSION ERICK [facility] Encounter Notes: All associated encounter notes This section contains the clinical notes associated to the Encounter. Date/Time Encounter Note(s) Provider Source Aug 22, 2024 11:43 AM [employer]PERVISOR CARE NOTE: LOCAL TITLE: [facility] NOTE [facility] STANDARD TITLE: CUSTODIAL CARE NOTE DATE OF NOTE: AUG 22, 2024@11:43 ENTRY DATE: AUG 22, 2024@11:43:06 AUTHOR: SIMEON REDDY EXP COSIGNER: URGENCY: STATUS: COMPLETED This is a 74 year old, DECLINED TO ANSWER MALE with a chief complaint of: eager to d/c to home. However, Hg noted to have dropped to 7.6. had been as low at 7.8 at OSH after bypass surgery but then increased to 8.0. [place] prior to surgery was 12.9. [place] denies blood in stool but noted to have diarrhea for 2 days. [place] is on high dose mag. 800mg bid. Magnesium level 1.9. Magnesium dropped to 400mg bid. Iron levels low at 19 and iron sats 7 with normal tibc 226 [place] completed therapy and no c/o sob, or cp. No dizziness. REVIEW OF SYSTEMS: Pain:denies Bowels: stable Sleep:sleeping off and on Weight: Up 2lbs, no edema, no sob, no cp, no n/v, no abd pain With the following known Allergies: TRAMADOL On the following Active Medications: 1) PREGABALIN CAP,ORAL PO BID 100MG 2) ASPIRIN (ENTERIC-COATED)(OTC) TAB,EC PO QDAILY 81MG 3) ATORVASTATIN TAB PO QPM 80MG 4) CLOPIDOGREL TAB PO QDAILY 75MG 5) DULOXETINE CAP,EC PO QDAILY 60MG 6) ISOSORBIDE MONONITRATE TAB,SA PO QDAILY 15MG 7) MULTIVITAMIN CAP/TAB PO QDAILY 1 TABLET 8) ACETAMINOPHEN TAB PO Q6H PRN 650MG 9) ALBUTEROL (CFC-F) INHL,ORAL INH ORAL QID PRN 1 PUFF 10) DEXTROSE 24GM TUBE GEL,ORAL PO Q15MIN PRN 1 TUBE 11) CARBOXYMETHYLCELLULOSE 0.5% (PF) OU QID PRN 12) FOLIC ACID TAB PO QDAILY 1MG 13) ERGOCALCIFEROL (HIGH DOSE VITAMIN D) PO MO@1700 x 8 weeks 14) CARVEDILOL TAB PO CC BID 3.125MG 15) METFORMIN (24HR RELEASE) TAB,SA PO QDAILY 500MG 16) OMEPRAZOLE CAP,EC PO QAMAC 40MG 17) MAGNESIUM OXIDE TAB PO BID 400MG Recent Vital Signs: Temperature: 98.1 F [36.7 C] (08/22/2024 10:30) BP: 104/61 (08/22/2024 10:30) Pulse: 55 (08/22/2024 10:30) Resp: 18 (08/22/2024 10:30) Pain Scores: Measurement DT PAIN 08/21/2024 22:00 0 08/21/2024 10:00 0 08/21/2024 09:43 0 08/21/2024 01:54 0 08/20/2024 15:56 0 08/20/2024 10:00 0 08/19/2024 18:27 0 Weight: Measurement DT WEIGHT LB(KG)[BMI] 08/20/2024 10:00 215.2(97.61)[31*] 08/19/2024 05:26 213.8(96.98)[31*] 08/13/2024 10:48 211.9(96.12)[30*] 08/12/2024 12:41 212.3(96.30)[31*] 08/11/2024 14:26 211.1(95.75)[30*] 06/29/2024 12:58 241.3(109.45)[35*] 06/19/2024 06:20 234(106.14)[34*] 06/07/2024 11:53 231.7(105.10)[33*] 06/05/2024 08:06 235.7(106.91)[34*] 05/17/2024 08:37 233.1(105.73)[34*] 04/07/2024 10:01 231(104.78)[33*] 02/17/2024 12:10 227.2(103.06)[33*] 02/10/2024 11:09 228.9(103.83)[33*] 02/02/2024 10:03 230.3(104.46)[33*] PHYSICAL EXAM : GEN: NAD, resting in bed, color normal [...] skin dry, no redness or open areas ASSESSMENT & PLAN: #Anemia iron deficient: -Per Dr. Perkins's note she had discussed with patient in regards of anemia, he reports of never having colonoscopy due to choice. He apparently has a follow- up with hematologistplanned, but that he missed due to hospitalization. He has not noticed blood in stool, black tarry stools. Occult stool ordered. -Hg today decreased to 7.6 from 8.0 overall decrease since surgery -Iron levels low at 19 and iron sats 7 with normal tibc 226, normal ferritin #Diarrhea 2 x a day after eating. -prob r/t magnesium pills, mag 1.9 will decrease to 400mg bid and monitor diet changed to regualar per request #CAD, s/p CABGx3, started on Plavix and continued on aspirin, statin, but Coreg held due to hypotension and now has been restarted per request of [facility]. Patient now has pacemaker for complete heart block. Follow-up with CT surgery in 2 weeks. 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 Entresto held due to relative hypotension. Also home regimen of Bumex is stopped and patient does not have any lower extremity edema. -restarted Coreg today and continue isosorbide -monitor bp #DM2, A1c reported 7.5%. Patient has been on high-dose of Lantus at home, metformin, Ozempic. He did report weight loss with Ozempic initially. Due to hypoglycemia, insulin and metformin, Ozempic discontinued. He is on sliding scale only. - low-dose of metformin at 500 mg daily, -vet will need to keep a log to determine if needing to restart insulin # Complete heart block, pacemaker placed. # Diabetic neuropathy, painful. On Lyrica and duloxetine.Can increase Lyrica if needed. #HTN-relative hypotension at the hospital, will monitor off Coreg, Imdur, Entresto. Started on low-dose Coreg. # Knee osteoarthritis, patient does not report knee pain. # Obstructive sleep apnea, has home CPAP unit. # Diet: changed to regular diet per request #Generalized weakness: consult PT/OT for strength and mobilization of the [place]. Previously ambulated with a walker or cane, lives in a house with plan to return on home with son. -d/c in am if cbc stable # Other issues: History of pituitary adenoma, obesity, hepatic steatosis. Previously on Ozempic, will monitor his appetite and glucose in order to restart or not. History of kidney injury in childhood, patient does not recall exactly details. # All medications including non-VA and OTC were reviewed with the patient and/or caregiver and no discrepancies exist. # Pt. verbalized understanding plan of care and agrees with it. Performed one to one counseling and education with patient regardin. Disease process 2. Recent Labs: CBC WBC 3.5 L 10*3/uL 08/22/2024 06:00 RBC 3.23 L 10*6/uL 08/22/2024 06:00 HGB 7.6 L g/dL 08/22/2024 06:00 HCT 26.0 L % 08/22/2024 06:00 MCV 80.5 fL 08/22/2024 06:00 MCH 23.5 L pg 08/22/2024 06:00 MCHC 29.2 L g/dL 08/22/2024 06:00 RDW 16.1 H % 08/22/2024 06:00 PLT 112 L 10*3/uL 08/22/2024 06:00 MPV 8.9 fL 08/22/2024 06:00 NEUTROPHILS, AUTO % 50 % 08/22/2024 06:00 LYMPHOCYTES, AUTO % 23 % 08/22/2024 06:00 MONOCYTES, AUTO % 10 % 08/22/2024 06:00 EOSINOPHILS, AUTO % 14 % 08/22/2024 06:00 BASOPHILS, AUTO % 1 % 08/22/2024 06:00 NEUTROPHILS, ABSOLUTE 1.75 L 10*3/uL 08/22/2024 06:00 LYMPHOCYTES, ABSOLUTE 0.79 10*3/uL 08/22/2024 06:00 MONOCYTES, ABSOLUTE 0.36 10*3/uL 08/22/2024 06:00 EOSINOPHILS, ABSOLUTE 0.49 10*3/uL 08/22/2024 06:00 BASOPHILS, ABSOLUTE 0.05 10*3/uL 08/22/2024 06:00 NRBC% 0 #/100 (WBCs) 08/22/2024 06:[address] IMMATURE [address]T FRACTION 1.6 % 07/20/2024 [...] uIU/mL 06/05/2024 09:00 Life Sustaining Treatment Orders Cohort: Reminder Term: [facility]LIFE SUSTAINING TREATMENT ORDERABLE ITEMS Orderable Item: LST FULL CODE 08/17/2024@15:37 Status: active, Start date: 08/17/2024@15:37, Stop date: missing Duration: 5 D /shen/ Simeon Reddy APN,[employer] POWDER [employer]ER W[employer]-BC Advanced Practice Nurse Signed: 08/22/2024 13:56 Receipt Acknowledged By: 08/22/2024 14:45 /shen/ JONAS RAMSAY Physician-Thread Cutter, CLC-ECRS [facility]
--- OUTSIDE RECORDS SUMMARY | 2024-11-17 04:08 | XMS_ITS ---
[place] DAILY HOSPITALIZATION DATA [facility] Encounter Summary Created on: November 16, 2024 CHET WALKER : 1950 Sex: Male Author Name [facility] Address [address] [place] [address] Care Team Providers Care Adjunct Instructor Name Role Phone MANUEL BAIRD Primary Care [...] PART A Apr 08, 2017 PART A [id number] ASHLEY WALKER PATIENT Selected Encounter This section includes the information on record at [place] for the Encounter. Date/Time Encounter Type Encounter Description Reason Pro vider Source Aug 22, 2024 10:44 AM Inpatient Visit DAILY HOSPITALIZATION DATA [facility] Encounter Template Text not used by [place] Plan of Treatment: Future Appointments (+ 6 [...] 20 appointments. The data comes from all [facility]. Appointment Date/Time Appointment Type Appointme [...] AM AMBULATORY - MEDICINE [facility] Sep 29, 2024 12:30 PM AMBULATORY - MEDICINE [facility] Oct 02, 2024 09:30 AM AMBULATORY - MEDICINE [facility] Nov 20, 2024 10:30 AM AMBULATORY - SURGERY [facility] Nov 21, 2024 10:00 AM AMBULATORY - NONE [facility] Dec 11, 2024 10:30 AM AMBULATORY - MEDICINE [facility] Active, Pending, and Scheduled Orders This section includes a listing of several types of active, pending, and scheduled orders, including clinic medications orders, diagnostic test orders, procedure orders and consult orders; where the start date of the order is 45 days before the date of the Encounter or 45 days after the date of theEncounter. The data comes from all [facility]. Test Date/Time Test Type Test Details Facility Name Aug 02, 2024 12:00 AM Laboratory - Chemistry Order CBC BLOOD STAT SP [facility] Aug 02, 2024 12:00 AM Laboratory - Chemistry Order COMPREHENSIVE METABOLIC PANEL GREEN LI/HEP BLD/PLAS PLASMA SP [facility] Aug 17, 2024 03:47 PM Consult Order [facility] Cons Bedside [facility] Lab Results: +/- 30 days of [...] Comment Aug 23, 2024 08:21 AM [facility] MAGNESIUM Specimen Type: PLASMA No comment entered. Ordering Provider: SILVIA REDDY Report Released Date/Time: Aug 22, 2024 11:26 AM Reporting Lab: [facility] [address] Performing Lab: [facility] [address] MAGNESIUM 1.8 mg/dL 1.6-2.6 Aug 23, 2024 08:21 AM [facility] CBC Specimen Type: BLOOD No comment entered. Ordering Provider: SILVIA REDDY Report Released Date/Time: Aug 22, 2024 11:19 AM Reporting Lab: [facility] [address] Performing Lab: [facility] [address] WBC 4.0 10*3/uL 3.6-11.2 RBC 3.65 10*6/uL [...] 0.00-0.20 Aug 23, 2024 05:12 AM [facility] GLUCOSE,BLOOD-poct (STL) Specimen Type: BLOOD Comment: Test Performed by: [id number] Meter #: [id number] Ordering Provider: SILVIA REDDY Report Released Date/Time: Aug 23, 2024 05:23 AM Reporting Lab: [facility] [address] Performing Lab: [facility] [address] GLUCOSE,BLOOD- poct (STL) 99 mg/dL 72-99 Aug 23, 2024 02:45 AM [facility] OCCULT BLOOD FIT X1 SCREEN Specimen Type: FECES No comment entered. Ordering Provider: SILVIA REDDY Report Released Date/Time: Aug 22, 2024 11:23 AM Reporting Lab: [address] [address] Performing Lab: [address] [address] OCCULT BLOOD (FIT) #1 OF 1 Negative Negative Aug 22, 2024 07:30 PM [facility] OCCULT BLOOD FIT X1 SCREEN Specimen Type: FECES No comment entered. Ordering Provider: SILVIA REDDY Report Released Date/Time: Aug 22, 2024 11:23 AM Reporting Lab: [address] [address] Performing Lab: [address] [address] OCCULT BLOOD (FIT) #1 OF 1 Negative Negative Aug 22, 2024 06:15 PM [facility] OCCULT BLOOD FIT X1 SCREEN Specimen Type: FECES No comment entered. Ordering Provider: SILVIA REDDY Report Released Date/Time: Aug 22, 2024 11:23 AM Reporting Lab: [address] [address] Performing Lab: [facility] [address] [facility] [address] OCCULT BLOOD (FIT) #1 OF 1 Negative Negative Aug 22, 2024 04:24 PM [facility] GLUCOSE,BLOOD-poct (STL) Specimen Type: BLOOD Comment: Test Performed by: [id number] Meter #: [id number] Ordering Provider: SILVIA REDDY Report Released Date/Time: Aug 22, 2024 04:36 PM Reporting Lab: [facility] [address] Performing Lab: [facility] [address] GLUCOSE,BLOOD- poct (STL) 176 mg/dL H -Aug 22, 2024 04:23 PM [facility] GLUCOSE,BLOOD-poct (STL) Specimen Type: BLOOD Comment: Test Performed by: [id number] Meter #: [id number] Ordering Provider: SILVIA REDDY Report Released Date/Time: Aug 22, 2024 04:36 PM Reporting Lab: [facility] [address] Performing Lab: [facility] [address] GLUCOSE,BLOOD- poct (STL) 221 mg/dL H 72-Aug 22, 2024 11:15 AM [facility] GLUCOSE,BLOOD-poct (STL) Specimen Type: BLOOD Comment: Test Performed by: [id number] Meter #: [id number] Ordering Provider: SILVIA REDDY Report Released Date/Time: Aug 22, 2024 11:27 AM Reporting Lab: [facility] [address] Performing Lab: [facility] [address] GLUCOSE,BLOOD- poct (STL) 140 mg/dL H 72-Aug 22, 2024 08:03 AM [facility] FERRITIN Specimen Type: SERUM No comment entered. Ordering Provider: JUDIT PERKINS Report Released Date/Time: Aug 18, 2024 11:01 AM Reporting Lab: [facility] [address] [facility] [address] Performing Lab: [facility] [address] [facility] [address] FERRITIN 79.50 ng/mL 22-275 Aug 22, 2024 08:03 AM [facility] IRON/TIBC PROFILE Specimen Type: SERUM No comment entered. Ordering Provider: JUDIT PERKINS Report Released Date/Time: Aug 18, 2024 11:01 AM Reporting Lab: [address] [address] Performing Lab: [address] [address] TIBC 283 ug/dL 250-450 TRANSFERRIN 226 mg/dL 163-344 IRON SATURATION 7 L 20-50 IRON 19 ug/dL L 65-175 Aug 22, 2024 08:03 AM [facility] B12 Specimen Type: SERUM No comment entered. Ordering Provider: JUDIT PERKINS Report Released Date/Time: Aug 18, 2024 11:01 AM Reporting Lab: [facility] [address] Performing Lab: [facility] [address] B12 631 pg/mL 213-816 Aug 22, 2024 08:03 AM [facility] COMPREHENSIVE METABOLIC PANEL Specimen Type: PLASMA Comment: No hemolysis noted. Ordering Provider: SILVIA REDDY Report Released Date/Time: Aug 17, 2024 01:18 PM Reporting Lab: [facility] [address] [facility] [address] Performing Lab: [address] [address] CREATININE 0.80 mg/dL 0.7-1.3 UREA NITROGEN 9.7 [...] >60 Aug 22, 2024 08:03 AM [facility] CBC Specimen Type: BLOOD No comment entered. Ordering Provider: SILVIA REDDY Report Released Date/Time: Aug 17, 2024 01:18 PM Reporting Lab: [facility] [address] Performing Lab: [facility] [address] WBC 3.5 10*3/uL L 3.6-11.2 RBC 3.23 [...] 0 Aug 22, 2024 05:03 AM [facility] GLUCOSE,BLOOD-poct (STL) Specimen Type: BLOOD Comment: Test Performed by: [id number] Meter #: [id number] Ordering Provider: SILVIA REDDY Report Released Date/Time: Aug 22, 2024 06:17 AM Reporting Lab: [facility] [address] Performing Lab: [facility] [address] GLUCOSE,BLOOD- poct (STL) 170 mg/dL H 72-Aug 21, 2024 04:32 PM [facility] GLUCOSE,BLOOD-poct (STL) Specimen Type: BLOOD Comment: Test Performed by: [id number] Meter #: [id number] Ordering Provider: SILVIA REDDY Report Released Date/Time: Aug 21, 2024 04:49 PM Reporting Lab: [facility] [address] Performing Lab: [facility] [address] GLUCOSE,BLOOD- poct (STL) 169 mg/dL H -99 Aug 21, 2024 11:53 AM [facility] GLUCOSE,BLOOD-poct (STL) Specimen Type: BLOOD Comment: Test Performed by: [id number] Meter #: [id number] Ordering Provider: SILVIA REDDY Report Released Date/Time: Aug 21, 2024 12:11 PM Reporting Lab: [facility] [address] Performing Lab: [facility] [address] GLUCOSE,BLOOD- poct (STL) 149 mg/dL H 72-99 Aug 21, 2024 05:10 AM [facility] GLUCOSE,BLOOD-poct (STL) Specimen Type: BLOOD Comment: Test Performed by: [id number] Meter #: [id number] Ordering Provider: SILVIA REDDY Report Released Date/Time: Aug 21, 2024 05:27 AM Reporting Lab: [facility] [place] [address] Performing Lab: [facility] [place] [phone] GLUCOSE,BLOOD- poct (STL) 118 mg/dL H 72-99 Aug 20, 2024 04:38 PM [facility] GLUCOSE,BLOOD-poct (STL) Specimen Type: BLOOD Comment: Test Performed by: [id number] Meter #: [id number] Ordering Provider: SILVIA REDDY Report Released Date/Time: Aug 21, 2024 01:55 AM Reporting Lab: [facility] [place] [address] Performing Lab: [facility] [place] [address] GLUCOSE,BLOOD- poct (STL) 169 mg/dL H 72-Aug 20, 2024 04:36 PM [facility] GLUCOSE,BLOOD-poct (STL) Specimen Type: BLOOD Comment: Test Performed by: [id number] Meter #: [id number] Ordering Provider: SILVIA REDDY Report Released Date/Time: Aug 21, 2024 01:55 AM Reporting Lab: [facility] [place] [address] Performing Lab: [facility] [place] [address] GLUCOSE,BLOOD- poct (STL) 395 mg/dL H 72-99 Aug 20, 2024 11:45 AM [facility] GLUCOSE,BLOOD-poct (STL) Specimen Type: BLOOD Comment: Test Performed by: [id number] Meter #: [id number] Ordering Provider: SILVIA REDDY Report Released Date/Time: Aug 20, 2024 11:56 AM Reporting Lab: [facility] [address] Performing Lab: [facility] [address] GLUCOSE,BLOOD- poct (STL) 169 mg/dL H 72-Aug 20, 2024 05:06 AM [facility] GLUCOSE,BLOOD-poct (STL) Specimen Type: BLOOD Comment: Test Performed by: [id number] Meter #: [id number] Ordering Provider: SILVIA REDDY Report Released Date/Time: Aug 20, 2024 06:05 AM Reporting Lab: [facility] [address] Performing Lab: [facility] [facility] [address] GLUCOSE,BLOOD- poct (STL) 115 mg/dL H 72-Aug 19, 2024 04:23 PM [facility] GLUCOSE,BLOOD-poct (STL) Specimen Type: BLOOD Comment: Test Performed by: [id number] Meter #: [id number] Ordering Provider: SILVIA REDDY Report Released Date/Time: Aug 19, 2024 05:54 PM Reporting Lab: [facility] [address] Performing Lab: [facility] [address] GLUCOSE,BLOOD- poct (STL) 137 mg/dL H 72-99 Aug 19, 2024 11:28 AM [facility] GLUCOSE,BLOOD-poct (STL) Specimen Type: BLOOD Comment: Test Performed by: [id number] Meter #: [id number] Ordering Provider: SILVIA REDDY Report Released Date/Time: Aug 19, 2024 11:51 AM Reporting Lab: [facility] [address] Performing Lab: [facility] [address] GLUCOSE,BLOOD- poct (STL) 190 mg/dL H 72-99 Aug 19, 2024 05:21 AM [facility] GLUCOSE,BLOOD-poct (STL) Specimen Type: BLOOD Comment: Test Performed by: [id number] Meter #: [id number] Ordering Provider: SILVIA REDDY Report Released Date/Time: Aug 19, 2024 05:56 AM Reporting Lab: [facility] [address] Performing Lab: [facility] [address] GLUCOSE,BLOOD- poct (STL) 130 mg/dL H Aug 18, 2024 04:49 PM [facility] GLUCOSE,BLOOD-poct (STL) Specimen Type: BLOOD Comment: Test Performed by: [id number] Meter #: [id number] Ordering Provider: SILVIA REDDY Report Released Date/Time: Aug 18, 2024 05:01 PM Reporting Lab: [facility] [address] Performing Lab: [facility] [address] GLUCOSE,BLOOD- poct (STL) 129 mg/dL H Aug 18, 2024 11:23 AM [facility] GLUCOSE,BLOOD-poct (STL) Specimen Type: BLOOD Comment: Test Performed by: [id number] Meter #: [id number] Ordering Provider: SILVIA REDDY Report Released Date/Time: Aug 18, 2024 11:41 AM Reporting Lab: [facility] [address] Performing Lab: [facility] [address] GLUCOSE,BLOOD- poct (STL) 180 mg/dL H Aug 18, 2024 05:08 AM [facility] GLUCOSE,BLOOD-poct (STL) Specimen Type: BLOOD Comment: Test Performed by: [id number] Meter #: [id number] Ordering Provider: SILVIA REDDY Report Released Date/Time: Aug 18, 2024 05:31 AM Reporting Lab: [facility] [place] [address] Performing Lab: [facility] [address] GLUCOSE,BLOOD- poct (STL) 127 mg/dL H -Aug 17, 2024 07:32 PM [facility] GLUCOSE,BLOOD-poct (STL) Specimen Type: BLOOD Comment: Test Performed by: [id number] Meter #: [id number] Ordering Provider: SILVIA REDDY Report Released Date/Time: Aug 17, 2024 07:59 PM Reporting Lab: [facility] [place] [address] Performing Lab: [facility] [place] [address] GLUCOSE,BLOOD- poct (STL) 154 mg/dL H -Aug 17, 2024 04:24 PM [facility] GLUCOSE,BLOOD-poct (STL) Specimen Type: BLOOD Comment: Test Performed by: [id number] Meter #: [id number] Ordering Provider: SILVIA REDDY Report Released Date/Time: Aug 17, 2024 04:35 PM Reporting Lab: [facility] [place] [address] Performing Lab: [facility] [place] [address] GLUCOSE,BLOOD- poct (STL) 178 mg/dL H -Aug 17, 2024 05:09 AM [facility] GLUCOSE,BLOOD-poct (STL) Specimen Type: BLOOD Comment: Test Performed by: [id number] Meter #: [id number] Ordering Provider: SILVIA REDDY Report Released Date/Time: Aug 17, 2024 05:54 AM Reporting Lab: [facility] [address] Performing Lab: [facility] [address] GLUCOSE,BLOOD- poct (STL) 124 mg/dL H 72-Aug 16, 2024 07:40 PM [facility] GLUCOSE,BLOOD-poct (STL) Specimen Type: BLOOD Comment: Test Performed by: [id number] Meter #: [id number] Ordering Provider: SILVIA REDDY Report Released Date/Time: Aug 16, 2024 08:28 PM Reporting Lab: [facility] [address] Performing Lab: [facility] [address] GLUCOSE,BLOOD- poct (STL) 144 mg/dL H -Aug 16, 2024 04:19 PM [facility] GLUCOSE,BLOOD-poct (STL) Specimen Type: BLOOD Comment: Test Performed by: [id number] Meter #: [id number] Ordering Provider: SILVIA REDDY Report Released Date/Time: Aug 16, 2024 04:45 PM Reporting Lab: [facility] [address] Performing Lab: [facility] [address] GLUCOSE,BLOOD- poct (STL) 138 mg/dL H 72-Aug 16, 2024 11:52 AM [facility] GLUCOSE,BLOOD-poct (STL) Specimen Type: BLOOD Comment: Test Performed by: [id number] Meter #: [id number] Ordering Provider: SILVIA REDDY Report Released Date/Time: Aug 16, 2024 12:04 PM Reporting Lab: [facility] [address] Performing Lab: [facility] [address] GLUCOSE,BLOOD- poct (STL) 135 mg/dL H 72-99 Aug 16, 2024 05:24 AM [facility] GLUCOSE,BLOOD-poct (STL) Specimen Type: BLOOD Comment: Test Performed by: [id number] Meter #: [id number] Ordering Provider: SILVIA REDDY Report Released Date/Time: Aug 16, 2024 05:38 AM Reporting Lab: [facility] [address] Performing Lab: [facility] [address] GLUCOSE,BLOOD- poct (STL) 151 mg/dL H Aug 15, 2024 07:31 PM [facility] GLUCOSE,BLOOD-poct (STL) Specimen Type: BLOOD Comment: Test Performed by: [id number] Meter #: [id number] Ordering Provider: SILVIA REDDY Report Released Date/Time: Aug 15, 2024 08:07 PM Reporting Lab: [facility] [address] Performing Lab: [facility] [address] GLUCOSE,BLOOD- poct (STL) 173 mg/dL H Aug 15, 2024 04:18 PM [facility] GLUCOSE,BLOOD-poct (STL) Specimen Type: BLOOD Comment: Test Performed by: [id number] Meter #: [id number] Ordering Provider: SILVIA REDDY Report Released Date/Time: Aug 15, 2024 04:59 PM Reporting Lab: [facility] [address] Performing Lab: [facility] [address] GLUCOSE,BLOOD- poct (STL) 136 mg/dL H Aug 15, 2024 04:16 PM [facility] GLUCOSE,BLOOD-poct (STL) Specimen Type: BLOOD Comment: Test Performed by: [id number] Meter #: [id number] Ordering Provider: SILVIA REDDY Report Released Date/Time: Aug 15, 2024 04:59 PM Reporting Lab: [facility] [place] [address] Performing Lab: [facility] [address] GLUCOSE,BLOOD- poct (STL) 194 mg/dL H 72-Aug 15, 2024 11:39 AM [facility] GLUCOSE,BLOOD-poct (STL) Specimen Type: BLOOD Comment: Test Performed by: [id number] Meter #: [id number] Ordering Provider: SILVIA REDDY Report Released Date/Time: Aug 15, 2024 12:00 PM Reporting Lab: [facility] [place] [address] Performing Lab: [facility] [place] [address] GLUCOSE,BLOOD- poct (STL) 127 mg/dL H -Aug 15, 2024 05:07 AM [facility] GLUCOSE,BLOOD-poct (STL) Specimen Type: BLOOD Comment: Test Performed by: [id number] Meter #: [id number] Ordering Provider: SILVIA REDDY Report Released Date/Time: Aug 15, 2024 06:14 AM Reporting Lab: [facility] [place] [address] Performing Lab: [facility] [place] [address] GLUCOSE,BLOOD- poct (STL) 151 mg/dL H -Aug 14, 2024 04:22 PM [facility] GLUCOSE,BLOOD-poct (STL) Specimen Type: BLOOD Comment: Test Performed by: [id number] Meter #: [id number] Ordering Provider: SILVIA REDDY Report Released Date/Time: Aug 14, 2024 04:52 PM Reporting Lab: [facility] [address] Performing Lab: [facility] [address] GLUCOSE,BLOOD- poct (STL) 129 mg/dL H 72-99 Aug 14, 2024 11:21 AM [facility] GLUCOSE,BLOOD-poct (STL) Specimen Type: BLOOD Comment: Test Performed by: [id number] Meter #: [id number] Ordering Provider: SILVIA REDDY Report Released Date/Time: Aug 14, 2024 11:37 AM Reporting Lab: [facility] [address] Performing Lab: [facility] [address] GLUCOSE,BLOOD- poct (STL) 135 mg/dL H 72-Aug 14, 2024 06:59 AM [facility] QUANTIFERON-TB,4 TUBE Specimen Type: BLOOD Comment: normalcy [...] For additional information, please refer to http://education. GoYoDeo/faq/QWR494 (This link is being provided for information/ educational purposes only.) Test Performed by [employer] [facility], [address] [place] [address] Tommie Garcia M.D., Ph.D., Director of Laboratories , [facility] [id number] Ordering Provider: SILVIA REDDY Report Released Date/Time: Aug 11, 2024 03:58 PM Reporting Lab: [facility] [address] [facility] [address] Performing Lab: [facility] [id number] [place] [address] .NIL - QUANTIFERON 0.04 [IU]/mL .MITOGEN-NIL 0.39 [IU]/mL .QUANTIFERON INDETERMINATE NEGATIVE .TB1-NIL <0.00 [IU]/mL .TB2-NIL <0.00 [IU]/mL Aug 14, 2024 06:59 AM [facility] B12 Specimen Type: SERUM No comment entered. Ordering Provider: SILVIA REDDY Report Released Date/Time: Aug 11, 2024 03:58 PM Reporting Lab: [facility] [place] [phone] Performing Lab: [facility] [address] B12 757 pg/mL 213-816 Aug 14, 2024 06:59 AM [facility] MAGNESIUM Specimen Type: PLASMA Comment: No hemolysis noted. Ordering Provider: SILVIA REDDY Report Released Date/Time: Aug 11, 2024 03:58 PM Reporting Lab: [facility] [address] Performing Lab: [facility] [address] MAGNESIUM 1.9 mg/dL 1.6-2.6 Aug 14, 2024 06:59 AM [facility] FOLATE (STL-MA) Specimen Type: SERUM No comment entered. Ordering Provider: SILVIA REDDY Report Released Date/Time: Aug 11, 2024 03:58 PM Reporting Lab: [facility] [address] Performing Lab: [facility] [address] FOLATE (STL-MA) 6.8 ng/mL L 7-20 Aug 14, 2024 06:59 AM [facility] VITAMIN D, 25-HYDROXY Specimen Type: SERUM No comment entered. Ordering Provider: SILVIA REDDY Report Released Date/Time: Aug 11, 2024 03:58 PM Reporting Lab: [facility] [address] Performing Lab: [facility] [address] VITAMIN D, 25-HYDROXY 8.9 ng/mL L 30-96 Aug 14, 2024 06:59 AM [facility] COMPREHENSIVE METABOLIC PANEL Specimen Type: PLASMA Comment: No hemolysis noted. Ordering Provider: SILVIA REDDY Report Released Date/Time: Aug 11, 2024 03:58 PM Reporting Lab: [facility] [address] Performing Lab: [facility] [address] CREATININE 0.75 mg/dL 0.70-1.30 UREA NITROGEN 13.6 [...] >60 Aug 14, 2024 06:59 AM [facility] CBC Specimen Type: BLOOD No comment entered. Ordering Provider: SILVIA REDDY Report Released Date/Time: Aug 11, 2024 03:58 PM Reporting Lab: [facility] [address] Performing Lab: [facility] [address] WBC 4.1 10*3/uL 3.6-11.2 RBC 3.20 10*6/uL [...] 0.00-0.20 Aug 14, 2024 05:08 AM [facility] GLUCOSE,BLOOD-poct (STL) Specimen Type: BLOOD Comment: Test Performed by: [id number] Meter #: [id number] Ordering Provider: SILVIA REDDY Report Released Date/Time: Aug 14, 2024 05:52 AM Reporting Lab: [facility] [address] Performing Lab: [facility] [address] GLUCOSE,BLOOD- poct (STL) 135 mg/dL H 72-99 Aug 13, 2024 04:27 PM [facility] GLUCOSE,BLOOD-poct (STL) Specimen Type: BLOOD Comment: Test Performed by: [id number] Meter #: [id number] Ordering Provider: SILVIA REDYD Report Released Date/Time: Aug 13, 2024 04:41 PM Reporting Lab: [facility] [address] Performing Lab: [facility] [address] GLUCOSE,BLOOD- poct (STL) 181 mg/dL H -Aug 13, 2024 11:33 AM [facility] GLUCOSE,BLOOD-poct (STL) Specimen Type: BLOOD Comment: Test Performed by: [id number] Meter #: [id number] Ordering Provider: SILVIA REDDY Report Released Date/Time: Aug 13, 2024 03:55 PM Reporting Lab: [facility] [address] Performing Lab: [facility] [place] [id number] GLUCOSE,BLOOD- poct (STL) 140 mg/dL H Aug 13, 2024 05:54 AM [facility] GLUCOSE,BLOOD-poct (STL) Specimen Type: BLOOD Comment: Test Performed by: [id number] Meter #: [id number] Ordering Provider: SILVIA REDDY Report Released Date/Time: Aug 13, 2024 06:20 AM Reporting Lab: [facility] [address] Performing Lab: [facility] [address] GLUCOSE,BLOOD- poct (STL) 112 mg/dL H Aug 12, 2024 04:35 PM [facility] GLUCOSE,BLOOD-poct (STL) Specimen Type: BLOOD Comment: Test Performed by: [id number] Meter #: [id number] Ordering Provider: SILVIA REDDY Report Released Date/Time: Aug 12, 2024 04:47 PM Reporting Lab: [facility] [address] Performing Lab: [facility] [address] GLUCOSE,BLOOD- poct (STL) 128 mg/dL H 72-99 Aug 12, 2024 11:26 AM [facility] GLUCOSE,BLOOD-poct (STL) Specimen Type: BLOOD Comment: Test Performed by: [id number] Meter #: [id number] Ordering Provider: SILVIA REDDY Report Released Date/Time: Aug 12, 2024 11:45 AM Reporting Lab: [facility] [facility] [id number] Performing Lab: [facility] [place] [address] GLUCOSE,BLOOD- poct (STL) 188 mg/dL H -Aug 12, 2024 06:13 AM [facility] GLUCOSE,BLOOD-poct (STL) Specimen Type: BLOOD Comment: Test Performed by: [id number] Meter #: [id number] Ordering Provider: SILVIA REDDY Report Released Date/Time: Aug 12, 2024 06:25 AM Reporting Lab: [facility] [address] Performing Lab: [facility] [address] GLUCOSE,BLOOD- poct (STL) 116 mg/dL H 72-99 Aug 11, 2024 04:10 PM [facility] GLUCOSE,BLOOD-poct (STL) Specimen Type: BLOOD Comment: Test Performed by: [id number] Meter #: [id number] Ordering Provider: SILVIA REDDY Report Released Date/Time: Aug 11, 2024 04:27 PM Reporting Lab: [facility] [place] [address] Performing Lab: [facility] [place] [address] GLUCOSE,BLOOD- poct (STL) 184 mg/dL H 72-99 Aug 11, 2024 01:44 PM [facility] MRSA SURVL NARES DNA Specimen Type: NARES [...] Aug 11, 2024 02:03 PM Reporting Lab: [address] [id number] Performing Lab: [address] [address] MRSA SURVL NARES DNA Negative Negative Vital Signs: All taken on the encounter date This section contains inpatient and outpatient Vital Signs collected on the date of the Encounter. Date/Time Temperature Pulse Blood Pressure Respiratory Rate SP02 Pain Height Weight Body Mass Index Source Aug 22, 2024 07:17 PM 98.1 74 117/73 20 95 [facility] Aug 22, 2024 10:30 AM 98.1 55 104/61 18 96 [facility] Aug 22, 2024 05:18 AM 97.9 76 120/77 20 95 [facility] Advance Directives: All historical and [...]
--- OUTSIDE RECORDS SUMMARY | 2024-11-17 04:09 | XMS_ITS ---
[place] DAILY HOSPITALIZATION DATA [facility] Encounter Summary Created on: November 16, 2024 CHET WALKER : 1950 Sex: Male Author Name [facility] Organization [facility]) Address [address] [place] [address] Care Team Providers Care Supervisor D[employer] Name Role Phone MANUEL BAIRD Primary Care [...] PART A Apr 08, 2017 PART A [id number] [phone] ASHLEY WALKER PATIENT Selected Encounter This section includes the information on record at MD for the Encounter. Date/Time Encounter Type Encounter Description Reason Pro vider Source Aug 23, 2024 12:34 AM Inpatient Visit DAILY HOSPITALIZATION DATA [facility] [...] data comes from all [facility]. Appointment Date/Time Appointment Type Appointme nt Facility Name Aug 24, 2024 10:00 AM AMBULATORY - MEDICINE [facility] Aug 24, 2024 10:30 AM AMBULATORY - MEDICINE [facility] Aug 30, 2024 09:30 AM AMBULATORY MEDICINE [facility] Aug 31, 2024 01:00 PM AMBULATORY - SURGERY [facility] Sep 21, 2024 01:30 PM AMBULATORY - MEDICINE [facility] Sep 22, 2024 11:00 AM AMBULATORY - MEDICINE [facility] Sep 29, 2024 12:30 PM AMBULATORY - MEDICINE [facility] Oct 02, 2024 09:30 AM AMBULATORY - MEDICINE [facility] Nov 20, 2024 10:30 AM AMBULATORY - SURGERY [facility] Nov 21, 2024 10:00 AM AMBULATORY - NONE [facility] Dec 11, 2024 10:30 AM AMBULATORY - MEDICINE [facility] Active, Pending, and [...] of theEncounter. The data comes from all [facility]. Test Date/Time Test Type Test Details Facility Name Aug 02, 2024 12:00 AM Laboratory - Chemistry Order CBC BLOOD STAT SP [facility] Aug 02, 2024 12:00 AM Laboratory - Chemistry Order COMPREHENSIVE METABOLIC PANEL GREEN LI/HEP BLD/PLAS PLASMA SP [facility] Aug 17, 2024 03:47 PM Consult Order [facility] SKILLED [facility] ST[facility] Cons Bedside [facility] Lab Results: +/- 30 [...] Range Comment Aug 23, 2024 08:[address] [facility] CBC Specimen Type: BLOOD No comment entered. Ordering Provider: SILVIA REDDY Report Released Date/Time: Aug 22, 2024 11:19 AM Reporting Lab: [facility] [address] Performing Lab: [facility]1 [facility] [address] WBC 4.0 10*3/uL 3.6-11.2 RBC 3.65 10*6/uL [...] 10*3/uL 0.00-0.20 Aug 23, 2024 08:[address] [facility] MAGNESIUM Specimen Type: PLASMA No comment entered. Ordering Provider: SILVIA REDDY Report Released Date/Time: Aug 22, 2024 11:26 AM Reporting Lab: [facility]1 [facility] [address] Performing Lab: [facility]1 [facility] [address] MAGNESIUM 1.8 mg/dL 1.6-2.6 Aug 23, 2024 05:12 AM [facility] GLUCOSE,BLOOD-poct (STL) Specimen Type: BLOOD Comment: Test Performed by: [id number] Meter #: [id number] Ordering Provider: SILVIA REDDY Report Released Date/Time: Aug 23, 2024 05:23 AM Reporting Lab: [facility] [address] Performing Lab: [facility]1 [facility] [address] GLUCOSE,BLOOD- poct (STL) 99 mg/dL 72-99 Aug 23, 2024 02:45 AM [facility] OCCULT BLOOD FIT X1 SCREEN Specimen Type: FECES No comment entered. Ordering Provider: SILVIA REDDY Report Released Date/Time: Aug 22, 2024 11:23 AM Reporting Lab: [facility] [address] [facility] [address] Performing Lab: [facility] [address] [place] [address] OCCULT BLOOD (FIT) #1 OF 1 Negative Negative Aug 22, 2024 07:30 PM [facility] OCCULT BLOOD FIT X1 SCREEN Specimen Type: FECES No comment entered. Ordering Provider: SILVIA REDDY Report Released Date/Time: Aug 22, 2024 11:23 AM Reporting Lab: [facility] [address] [facility] [address] Performing Lab: [facility] [address] [facility] [address] OCCULT BLOOD (FIT) #1 OF 1 Negative Negative Aug 22, 2024 06:15 PM [facility] OCCULT BLOOD FIT X1 SCREEN Specimen Type: FECES No comment entered. Ordering Provider: SILVIA REDDY Report Released Date/Time: Aug 22, 2024 11:23 AM Reporting Lab: [facility] [address] [facility] [address] Performing Lab: [place] [address] [facility] [address] OCCULT BLOOD (FIT) #1 OF 1 Negative Negative Aug 22, 2024 04:24 PM [facility] GLUCOSE,BLOOD-poct (STL) Specimen Type: BLOOD Comment: Test Performed by: [id number] Meter #: [id number] Ordering Provider: SILVIA REDDY Report Released Date/Time: Aug 22, 2024 04:36 PM Reporting Lab: [facility] [address] Performing Lab: [facility] [address] GLUCOSE,BLOOD- poct (STL) 176 mg/dL H -Aug 22, 2024 04:23 PM [facility] GLUCOSE,BLOOD-poct (STL) Specimen Type: BLOOD Comment: Test Performed by: [id number] Meter #: [id number] Ordering Provider: SILVIA REDDY Report Released Date/Time: Aug 22, 2024 04:36 PM Reporting Lab: [facility]1 [facility] [address] Performing Lab: [facility]1 [facility] [address] GLUCOSE,BLOOD- poct (STL) 221 mg/dL H -Aug 22, 2024 11:15 AM [facility] GLUCOSE,BLOOD-poct (STL) Specimen Type: BLOOD Comment: Test Performed by: [id number] Meter #: [id number] Ordering Provider: SILVIA REDDY Report Released Date/Time: Aug 22, 2024 11:27 AM Reporting Lab: [facility]1 [facility] [address] Performing Lab: [facility]1 [facility] [address] GLUCOSE,BLOOD- poct (STL) 140 mg/dL H 72-Aug 22, 2024 08:03 AM [facility] COMPREHENSIVE METABOLIC PANEL Specimen Type: PLASMA Comment: No hemolysis noted. Ordering Provider: SILVIA REDDY Report Released Date/Time: Aug 17, 2024 01:18 PM Reporting Lab: [facility] [address] [place] [address] Performing Lab: [address] [address] CREATININE 0.80 mg/dL 0.7-1.3 UREA NITROGEN 9.7 [...] Aug 22, 2024 08:[address] [facility] FERRITIN Specimen Type: SERUM No comment entered. Ordering Provider: JUDIT PERKINS Report Released Date/Time: Aug 18, 2024 11:01 AM Reporting Lab: [facility] [address] [place] [address] Performing Lab: [facility] [address] [place] [address] FERRITIN 79.50 ng/mL 22-275 Aug 22, 2024 08:[address] [facility] CBC Specimen Type: BLOOD No comment entered. Ordering Provider: SILVIA REDDY Report Released Date/Time: Aug 17, 2024 01:18 PM Reporting Lab: [facility]1 [facility] [address] Performing Lab: [facility] #1 [facility] [address] WBC 3.5 10*3/uL L 3.6-11.2 RBC 3.23 [...] NRBC% 0 Aug 22, 2024 08:[address] [facility] IRON/TIBC PROFILE Specimen Type: SERUM No comment entered. Ordering Provider: JUDIT PERKINS Report Released Date/Time: Aug 18, 2024 11:01 AM Reporting Lab: [facility] [address] [facility] [address] Performing Lab: [facility] [address] [place] [phone] TIBC 283 ug/dL 250-450 TRANSFERRIN 226 mg/dL 163-344 IRON SATURATION 7 L 20-50 IRON 19 ug/dL L 65-175 Aug 22, 2024 08:[address] [facility] B12 Specimen Type: SERUM No comment entered. Ordering Provider: JUDIT PERKINS Report Released Date/Time: Aug 18, 2024 11:01 AM Reporting Lab: [facility]1 [facility] [address] Performing Lab: [facility] [address] B12 631 pg/mL 213-816 Aug 22, 2024 05:03 AM [facility] GLUCOSE,BLOOD-poct (STL) Specimen Type: BLOOD Comment: Test Performed by: [id number] Meter #: [id number] Ordering Provider: SILVIA REDDY Report Released Date/Time: Aug 22, 2024 06:17 AM Reporting Lab: [facility] [address] Performing Lab: [facility] [address] GLUCOSE,BLOOD- poct (STL) 170 mg/dL H 72-Aug 21, 2024 04:32 PM [facility] GLUCOSE,BLOOD-poct (STL) Specimen Type: BLOOD Comment: Test Performed by: [id number] Meter #: [id number] Ordering Provider: SILVIA REDDY Report Released Date/Time: Aug 21, 2024 04:49 PM Reporting Lab: [facility]1 [facility] [address] Performing Lab: [facility] [address] GLUCOSE,BLOOD- poct (STL) 169 mg/dL H -Aug 21, 2024 11:53 AM [facility] GLUCOSE,BLOOD-poct (STL) Specimen Type: BLOOD Comment: Test Performed by: [id number] Meter #: [id number] Ordering Provider: SILVIA REDDY Report Released Date/Time: Aug 21, 2024 12:11 PM Reporting Lab: [facility] [address] Performing Lab: [facility] [address] GLUCOSE,BLOOD- poct (STL) 149 mg/dL H 72-Aug 21, 2024 05:10 AM [facility] GLUCOSE,BLOOD-poct (STL) Specimen Type: BLOOD Comment: Test Performed by: [id number] Meter #: [id number] Ordering Provider: SILVIA REDDY Report Released Date/Time: Aug 21, 2024 05:27 AM Reporting Lab: [facility] [address] Performing Lab: [facility] [address] GLUCOSE,BLOOD- poct (STL) 118 mg/dL H 72-Aug 20, 2024 04:38 PM [facility] GLUCOSE,BLOOD-poct (STL) Specimen Type: BLOOD Comment: Test Performed by: [id number] Meter #: [id number] Ordering Provider: SILVIA REDDY Report Released Date/Time: Aug 21, 2024 01:55 AM Reporting Lab: [facility] [address] Performing Lab: [facility] [place] [address] GLUCOSE,BLOOD- poct (STL) 169 mg/dL H -Aug 20, 2024 04:36 PM [facility] GLUCOSE,BLOOD-poct (STL) Specimen Type: BLOOD Comment: Test Performed by: [id number] Meter #: [id number] Ordering Provider: SILVIA REDDY Report Released Date/Time: Aug 21, 2024 01:55 AM Reporting Lab: [facility] [address] Performing Lab: [facility] [address] GLUCOSE,BLOOD- poct (STL) 395 mg/dL H 72-Aug 20, 2024 11:45 AM [facility] GLUCOSE,BLOOD-poct (STL) Specimen Type: BLOOD Comment: Test Performed by: [id number] Meter #: [id number] Ordering Provider: SILVIA REDDY Report Released Date/Time: Aug 20, 2024 11:56 AM Reporting Lab: [facility] [place] [address] Performing Lab: [facility] [address] GLUCOSE,BLOOD- poct (STL) 169 mg/dL H -Aug 20, 2024 05:06 AM [facility] GLUCOSE,BLOOD-poct (STL) Specimen Type: BLOOD Comment: Test Performed by: [id number] Meter #: [id number] Ordering Provider: SILVIA REDDY Report Released Date/Time: Aug 20, 2024 06:05 AM Reporting Lab: [facility]1 [facility] [address] Performing Lab: [facility] [address] GLUCOSE,BLOOD- poct (STL) 115 mg/dL H -Aug 19, 2024 04:23 PM [facility] GLUCOSE,BLOOD-poct (STL) Specimen Type: BLOOD Comment: Test Performed by: [id number] Meter #: [id number] Ordering Provider: SILVIA REDDY Report Released Date/Time: Aug 19, 2024 05:54 PM Reporting Lab: [facility] [address] Performing Lab: [facility]1 [facility] [address] GLUCOSE,BLOOD- poct (STL) 137 mg/dL H -Aug 19, 2024 11:28 AM [facility] GLUCOSE,BLOOD-poct (STL) Specimen Type: BLOOD Comment: Test Performed by: [id number] Meter #: [id number] Ordering Provider: SILVIA REDDY Report Released Date/Time: Aug 19, 2024 11:51 AM Reporting Lab: [facility]1 [facility] [address] Performing Lab: [facility] [address] GLUCOSE,BLOOD- poct (STL) 190 mg/dL H Aug 19, 2024 05:21 AM [facility] GLUCOSE,BLOOD-poct (STL) Specimen Type: BLOOD Comment: Test Performed by: [id number] Meter #: [id number] Ordering Provider: SILVIA REDDY Report Released Date/Time: Aug 19, 2024 05:56 AM Reporting Lab: [facility] [address] Performing Lab: [facility] [address] GLUCOSE,BLOOD- poct (STL) 130 mg/dL H Aug 18, 2024 04:49 PM [facility] GLUCOSE,BLOOD-poct (STL) Specimen Type: BLOOD Comment: Test Performed by: [id number] Meter #: [id number] Ordering Provider: SILVIA REDDY Report Released Date/Time: Aug 18, 2024 05:01 PM Reporting Lab: [facility] [address] Performing Lab: [facility] [address] GLUCOSE,BLOOD- poct (STL) 129 mg/dL H Aug 18, 2024 11:23 AM [facility] GLUCOSE,BLOOD-poct (STL) Specimen Type: BLOOD Comment: Test Performed by: [id number] Meter #: [id number] Ordering Provider: SILVIA REDDY Report Released Date/Time: Aug 18, 2024 11:41 AM Reporting Lab: [facility] [address] Performing Lab: [facility] [address] GLUCOSE,BLOOD- poct (STL) 180 mg/dL H Aug 18, 2024 05:08 AM [facility] GLUCOSE,BLOOD-poct (STL) Specimen Type: BLOOD Comment: Test Performed by: [id number] Meter #: [id number] Ordering Provider: SILVIA REDDY Report Released Date/Time: Aug 18, 2024 05:31 AM Reporting Lab: [facility] [address] Performing Lab: [facility] [address] GLUCOSE,BLOOD- poct (STL) 127 mg/dL H -Aug 17, 2024 07:32 PM [facility] GLUCOSE,BLOOD-poct (STL) Specimen Type: BLOOD Comment: Test Performed by: [id number] Meter #: [id number] Ordering Provider: SILVIA REDDY Report Released Date/Time: Aug 17, 2024 07:59 PM Reporting Lab: [facility] [address] Performing Lab: [facility] [address] GLUCOSE,BLOOD- poct (STL) 154 mg/dL H -Aug 17, 2024 04:24 PM [facility] GLUCOSE,BLOOD-poct (STL) Specimen Type: BLOOD Comment: Test Performed by: [id number] Meter #: [id number] Ordering Provider: SILVIA REDDY Report Released Date/Time: Aug 17, 2024 04:35 PM Reporting Lab: [facility] [address] Performing Lab: [facility] [address] GLUCOSE,BLOOD- poct (STL) 178 mg/dL H -Aug 17, 2024 05:09 AM [facility] GLUCOSE,BLOOD-poct (STL) Specimen Type: BLOOD Comment: Test Performed by: [id number] Meter #: [id number] Ordering Provider: SILVIA REDDY Report Released Date/Time: Aug 17, 2024 05:54 AM Reporting Lab: [facility] [place] [address] Performing Lab: [facility] [address] GLUCOSE,BLOOD- poct (STL) 124 mg/dL H -Aug 16, 2024 07:40 PM [facility] GLUCOSE,BLOOD-poct (STL) Specimen Type: BLOOD Comment: Test Performed by: [id number] Meter #: [id number] Ordering Provider: SILVIA REDDY Report Released Date/Time: Aug 16, 2024 08:28 PM Reporting Lab: [facility] [address] Performing Lab: [facility] [address] GLUCOSE,BLOOD- poct (STL) 144 mg/dL H Aug 16, 2024 04:19 PM [facility] GLUCOSE,BLOOD-poct (STL) Specimen Type: BLOOD Comment: Test Performed by: [id number] Meter #: [id number] Ordering Provider: SILVIA REDDY Report Released Date/Time: Aug 16, 2024 04:45 PM Reporting Lab: [facility] [address] Performing Lab: [facility] [address] GLUCOSE,BLOOD- poct (STL) 138 mg/dL H Aug 16, 2024 11:52 AM [facility] GLUCOSE,BLOOD-poct (STL) Specimen Type: BLOOD Comment: Test Performed by: [id number] Meter #: [id number] Ordering Provider: SILVIA REDDY Report Released Date/Time: Aug 16, 2024 12:04 PM Reporting Lab: [facility] [address] Performing Lab: [facility] [address] GLUCOSE,BLOOD- poct (STL) 135 mg/dL H Aug 16, 2024 05:24 AM [facility] GLUCOSE,BLOOD-poct (STL) Specimen Type: BLOOD Comment: Test Performed by: [id number] Meter #: [id number] Ordering Provider: SILVIA REDDY Report Released Date/Time: Aug 16, 2024 05:38 AM Reporting Lab: [facility] [address] Performing Lab: [facility] [address] GLUCOSE,BLOOD- poct (STL) 151 mg/dL H Aug 15, 2024 07:31 PM [facility] GLUCOSE,BLOOD-poct (STL) Specimen Type: BLOOD Comment: Test Performed by: [id number] Meter #: [id number] Ordering Provider: SILVIA REDDY Report Released Date/Time: Aug 15, 2024 08:07 PM Reporting Lab: [facility] [address] Performing Lab: [facility] [address] GLUCOSE,BLOOD- poct (STL) 173 mg/dL H Aug 15, 2024 04:18 PM [facility] GLUCOSE,BLOOD-poct (STL) Specimen Type: BLOOD Comment: Test Performed by: [id number] Meter #: [id number] Ordering Provider: SILVIA REDDY Report Released Date/Time: Aug 15, 2024 04:59 PM Reporting Lab: [facility] [address] Performing Lab: [facility] [address] GLUCOSE,BLOOD- poct (STL) 136 mg/dL H Aug 15, 2024 04:16 PM [facility] GLUCOSE,BLOOD-poct (STL) Specimen Type: BLOOD Comment: Test Performed by: [id number] Meter #: [id number] Ordering Provider: SILVIA REDDY Report Released Date/Time: Aug 15, 2024 04:59 PM Reporting Lab: [facility] [address] Performing Lab: [facility] [address] GLUCOSE,BLOOD- poct (STL) 194 mg/dL H -Aug 15, 2024 11:39 AM [facility] GLUCOSE,BLOOD-poct (STL) Specimen Type: BLOOD Comment: Test Performed by: [id number] Meter #: [id number] Ordering Provider: SILVIA REDDY Report Released Date/Time: Aug 15, 2024 12:00 PM Reporting Lab: [facility] [address] Performing Lab: [facility] [address] GLUCOSE,BLOOD- poct (STL) 127 mg/dL H -Aug 15, 2024 05:07 AM [facility] GLUCOSE,BLOOD-poct (STL) Specimen Type: BLOOD Comment: Test Performed by: [id number] Meter #: [id number] Ordering Provider: SILVIA REDDY Report Released Date/Time: Aug 15, 2024 06:14 AM Reporting Lab: [facility] [id number] Performing Lab: [facility] [address] GLUCOSE,BLOOD- poct (STL) 151 mg/dL H -Aug 14, 2024 04:22 PM [facility] GLUCOSE,BLOOD-poct (STL) Specimen Type: BLOOD Comment: Test Performed by: [id number] Meter #: [id number] Ordering Provider: SILVIA REDDY Report Released Date/Time: Aug 14, 2024 04:52 PM Reporting Lab: [facility] [place] [address] Performing Lab: [facility] [address] GLUCOSE,BLOOD- poct (STL) 129 mg/dL H 72-99 Aug 14, 2024 11:21 AM [facility] GLUCOSE,BLOOD-poct (STL) Specimen Type: BLOOD Comment: Test Performed by: [id number] Meter #: [id number] Ordering Provider: SILVIA REDDY Report Released Date/Time: Aug 14, 2024 11:37 AM Reporting Lab: [facility] [address] Performing Lab: [facility] [address] GLUCOSE,BLOOD- poct (STL) 135 mg/dL H 72-99 Aug 14, 2024 06:59 AM [facility] QUANTIFERON-TB,4 TUBE Specimen Type: BLOOD Comment: [...] For additional information, please refer to http://education. Cognia/faq/GFK089 (This link is being provided for information/ educational purposes only.) Test Performed by [facility], [facility], [address] [place] [address] Tommie Garcia M.D., Ph.D., Director of Laboratories , [facility] [id number] Ordering Provider: SILVIA REDDY Report Released Date/Time: Aug 11, 2024 03:58 PM Reporting Lab: [facility] [address] [facility] [address] Performing Lab: [facility] [id number] [place] [id number] .NIL - QUANTIFERON 0.04 [IU]/mL .MITOGEN-NIL 0.39 [IU]/mL .QUANTIFERON INDETERMINATE NEGATIVE .TB1-NIL <0.00 [IU]/mL .TB2-NIL <0.00 [IU]/mL Aug 14, 2024 06:[address] [facility] MAGNESIUM Specimen Type: PLASMA Comment: No hemolysis noted. Ordering Provider: SILVIA REDDY Report Released Date/Time: Aug 11, 2024 03:58 PM Reporting Lab: [facility] [address] Performing Lab: [facility] [address] MAGNESIUM 1.9 mg/dL 1.6-2.6 Aug 14, 2024 06:[address] [facility] B12 Specimen Type: SERUM No comment entered. Ordering Provider: SILVIA REDDY Report Released Date/Time: Aug 11, 2024 03:58 PM Reporting Lab: [facility] [address] Performing Lab: [facility] [facility] [address] B12 757 pg/mL 213-816 Aug 14, 2024 06:[address] [facility] FOLATE (STL-MA) Specimen Type: SERUM No comment entered. Ordering Provider: SILVIA REDDY Report Released Date/Time: Aug 11, 2024 03:58 PM Reporting Lab: [facility] [address] Performing Lab: [facility] [address] FOLATE (STL-MA) 6.8 ng/mL L 7-20 Aug 14, 2024 06:59 AM [facility] VITAMIN D, 25-HYDROXY Specimen Type: SERUM No comment entered. Ordering Provider: SILVIA REDDY Report Released Date/Time: Aug 11, 2024 03:58 PM Reporting Lab: [facility] [address] Performing Lab: [facility] [address] VITAMIN D, 25-HYDROXY 8.9 ng/mL L 30-96 Aug 14, 2024 06:59 AM [facility] COMPREHENSIVE METABOLIC PANEL Specimen Type: PLASMA Comment: No hemolysis noted. Ordering Provider: SILVIA REDDY Report Released Date/Time: Aug 11, 2024 03:58 PM Reporting Lab: [facility] [address] Performing Lab: [facility] [address] CREATININE 0.75 mg/dL 0.70-1.30 UREA NITROGEN 13.6 [...] Aug 14, 2024 06:59 AM [facility] CBC Specimen Type: BLOOD No comment entered. Ordering Provider: SILVIA REDDY Report Released Date/Time: Aug 11, 2024 03:58 PM Reporting Lab: [facility] [address] Performing Lab: [facility] [address] WBC 4.1 10*3/uL 3.6-11.2 RBC 3.20 10*6/uL [...] Aug 14, 2024 05:08 AM [facility] GLUCOSE,BLOOD-poct (STL) Specimen Type: BLOOD Comment: Test Performed by: [id number] Meter #: [id number] Ordering Provider: SILVIA REDDY Report Released Date/Time: Aug 14, 2024 05:52 AM Reporting Lab: [facility] [address] Performing Lab: [facility] [address] GLUCOSE,BLOOD- poct (STL) 135 mg/dL H 72-99 Aug 13, 2024 04:27 PM [facility] GLUCOSE,BLOOD-poct (STL) Specimen Type: BLOOD Comment: Test Performed by: [id number] Meter #: [id number] Ordering Provider: SILVIA REDDY Report Released Date/Time: Aug 13, 2024 04:41 PM Reporting Lab: [facility] [address] Performing Lab: [facility] [address] GLUCOSE,BLOOD- poct (STL) 181 mg/dL H -Aug 13, 2024 11:33 AM [facility] GLUCOSE,BLOOD-poct (STL) Specimen Type: BLOOD Comment: Test Performed by: [id number] Meter #: [id number] Ordering Provider: SILVIA REDDY Report Released Date/Time: Aug 13, 2024 03:55 PM Reporting Lab: [facility] [address] Performing Lab: [facility] [place] [address] GLUCOSE,BLOOD- poct (STL) 140 mg/dL H Aug 13, 2024 05:54 AM [facility] GLUCOSE,BLOOD-poct (STL) Specimen Type: BLOOD Comment: Test Performed by: [id number] Meter #: [id number] Ordering Provider: SILVIA REDDY Report Released Date/Time: Aug 13, 2024 06:20 AM Reporting Lab: [facility] [address] Performing Lab: [facility] [address] GLUCOSE,BLOOD- poct (STL) 112 mg/dL H Aug 12, 2024 04:35 PM [facility] GLUCOSE,BLOOD-poct (STL) Specimen Type: BLOOD Comment: Test Performed by: [id number] Meter #: [id number] Ordering Provider: SILVIA REDDY Report Released Date/Time: Aug 12, 2024 04:47 PM Reporting Lab: [facility] [address] Performing Lab: [facility] [address] GLUCOSE,BLOOD- poct (STL) 128 mg/dL H 72-99 Aug 12, 2024 11:26 AM [facility] GLUCOSE,BLOOD-poct (STL) Specimen Type: BLOOD Comment: Test Performed by: [id number] Meter #: [id number] Ordering Provider: SILVIA REDDY Report Released Date/Time: Aug 12, 2024 11:45 AM Reporting Lab: [facility] [address] Performing Lab: [facility] [address] GLUCOSE,BLOOD- poct (STL) 188 mg/dL H 72-Aug 12, 2024 06:13 AM [facility] GLUCOSE,BLOOD-poct (STL) Specimen Type: BLOOD Comment: Test Performed by: [id number] Meter #: [id number] Ordering Provider: SILVIA REDDY Report Released Date/Time: Aug 12, 2024 06:25 AM Reporting Lab: [facility] [address] Performing Lab: [facility] [address] GLUCOSE,BLOOD- poct (STL) 116 mg/dL H 72-99 Aug 11, 2024 04:10 PM [facility] GLUCOSE,BLOOD-poct (STL) Specimen Type: BLOOD Comment: Test Performed by: [id number] Meter #: [id number] Ordering Provider: SILVIA REDDY Report Released Date/Time: Aug 11, 2024 04:27 PM Reporting Lab: [facility] [place] [address] Performing Lab: [facility] [place] [address] GLUCOSE,BLOOD- poct (STL) 184 mg/dL H 72-99 Aug 11, 2024 01:44 PM [facility] MRSA SURVL NARES DNA Specimen Type: [...] Aug 11, 2024 02:03 PM Reporting Lab: [address] [address] Performing Lab: [address] [address] MRSA SURVL NARES DNA Negative Negative Vital Signs: All taken on the encounter date This section contains inpatient and outpatient Vital Signs collected on the date of the Encounter. Date/Time Temperature Pulse Blood Pressure Respiratory Rate SP02 Pain Height Weight Body Mass Index Source Aug 23, 2024 09:[address] [facility] N Aug 23, 2024 05:19 AM 71 124/62 99 [facility] N Advance Directives: All historical and current [...] 19, 2017 ADVANCE DIRECTIVE DISCUSSION ERICK BARDALES [facility]
--- OUTSIDE RECORDS SUMMARY | 2024-11-17 04:09 | XMS_ITS | Encounter Summary ---
Author Name [facility] [place] Organization [facility] [place] [place] Address [address] [place] [address] Care Team Providers Care Telephone Lines Repairer Name Role Phone MANUEL BAIRD Primary [...] PART A Apr 08, 2017 PART A [id number] [phone] ASHLEY WALKER PATIENT Selected Encounter This section includes the information on record at [place] for the Encounter. Date/Time Encounter Type Encounter Description Reason Provider Source Aug 22, 2024 04:27 PM Inpatient Visit GENERAL INTERNAL MEDICINE ICD-10-CM I25.118 [facility] heart disease [place] cor art w ot danica pctNADEGE Olson Encounter Template Text not used by [place] Assessments - Encounter Diagnoses This section includes the primary and secondary diagnoses documented for the Encounter. 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 NADEGE REDDY [facility] Aug 23, 2024 09:16 AM SECONDARY Essential (primary) hypertension NADEGE REDDY [facility] Aug 23, 2024 09:16 AM SECONDARY Heart failure, unspecified NADEGE REDDY [facility] Aug 23, 2024 09:16 AM SECONDARY Thrombocytopenia, unspecified NADEGE REDDY [facility] Aug 23, 2024 09:16 AM SECONDARY Type 2 diabetes w diabetic autonomic (poly)neuropathy NADEGE REDDY [facility] Plan of Treatment: Future Appointments (+ 6 months) and Future Tests (+/- 45 days) The Plan of Treatment section includes future care activities for the [facility] This section includes future appointments and future orders which are active, pending or scheduled. Future Appointments This section includes appointments that were scheduled to occur 6 months from the date of the Encounter, up to a maximum of 20 appointments. The data comes from all [place] treatment facilities. Appointment Date/Time Appointment Type Appointme nt Facility Name Aug 24, 2024 10:00 AM AMBULATORY - MEDICINE [facility] Aug 24, 2024 10:30 AM AMBULATORY - MEDICINE [facility] Aug 30, 2024 09:30 AM AMBULATORY - MEDICINE [facility] Aug 31, 2024 01:00 PM AMBULATORY - SURGERY [facility] Sep 21, 2024 01:30 PM AMBULATORY - MEDICINE [facility] Sep 22, 2024 11:00 AM AMBULATORY - MEDICINE [facility] Sep 29, 2024 12:30 PM AMBULATORY - MEDICINE [facility] Oct 02, 2024 09:30 AM AMBULATORY - MEDICINE [facility] Nov 20, 2024 10:30 AM AMBULATORY - SUR[facility]ERY [facility] Nov 21, 2024 10:00 AM AMBULATORY - NONE [facility] Dec 11, 2024 10:30 AM AMBULATORY - MEDICINE [facility] Active, Pending, and Scheduled Orders This section includes a listing of several types of active, pending, and scheduled orders, including clinic medications orders, diagnostic test orders, procedure orders and consult orders; where the start date of the order is 45 days before the date of the Encounter or 45 days after the date of theEncounter. The data comes from all [place] treatment facilities. Test Date/Time Test Type Test Details Facility Name Aug 02, 2024 12:00 AM Laboratory - Chemistry Order CBC BLOOD STAT SP [facility] Aug 02, 2024 12:00 AM Laboratory - Chemistry Order COMPREHENSIVE METABOLIC PANEL GREEN LI/HEP BLD/PLAS PLASMA SP [facility] Aug 17, 2024 03:47 PM Consult Order [facility] Cons Bedside [facility] Lab Results: +/- 30 [...] 23, 2024 08:21 AM [facility] MAGNESIUM Specimen Type: PLASMA No comment entered. Ordering Provider: SIMEON REDDY Report Released Date/Time: Aug 22, 2024 11:26 AM Reporting Lab: [facility] [address] Performing Lab: [facility] [address] MAGNESIUM 1.8 mg/dL 1.6-2.6 Aug 23, 2024 08:21 AM [facility] CBC Specimen Type: BLOOD No comment entered. Ordering Provider: SIMEON REDDY Report Released Date/Time: Aug 22, 2024 11:19 AM Reporting Lab: [facility] [address] Performing Lab: [facility] [address] WBC 4.0 10*3/uL 3.6-11.2 RBC 3.65 10*6/uL [...] 10*3/uL 0.00-0.20 Aug 23, 2024 05:12 AM [facility] GLUCOSE,BLOOD-poct (STL) Specimen Type: BLOOD Comment: Test Performed by: [id number] Meter #: [id number] Ordering Provider: SIMEON REDDY Report Released Date/Time: Aug 23, 2024 05:23 AM Reporting Lab: [facility] [address] Performing Lab: [facility] [address] GLUCOSE,BLOOD- poct (STL) 99 mg/dL 72-99 Aug 23, 2024 02:45 AM [facility] OCCULT BLOOD FIT X1 SCREEN Specimen Type: FECES No comment entered. Ordering Provider: SIMEON REDDY Report Released Date/Time: Aug 22, 2024 11:23 AM Reporting Lab: [facility] [place] [address] [address] Performing Lab: [address] [address] OCCULT BLOOD (FIT) #1 OF 1 Negative Negative Aug 22, 2024 07:30 PM [facility] OCCULT BLOOD FIT X1 SCREEN Specimen Type: FECES No comment entered. Ordering Provider: SIMEON REDDY Report Released Date/Time: Aug 22, 2024 11:23 AM Reporting Lab: [address] [address] Performing Lab: [address] [address] OCCULT BLOOD (FIT) #1 OF 1 Negative Negative Aug 22, 2024 06:15 PM [facility] OCCULT BLOOD FIT X1 SCREEN Specimen Type: FECES No comment entered. Ordering Provider: SIMEON REDDY Report Released Date/Time: Aug 22, 2024 11:23 AM Reporting Lab: [address] [address] Performing Lab: [address] [address] OCCULT BLOOD (FIT) #1 OF 1 Negative Negative Aug 22, 2024 04:24 PM [facility] GLUCOSE,BLOOD-poct (STL) Specimen Type: BLOOD Comment: Test Performed by: [id number] Meter #: [id number] Ordering Provider: SIMEON REDDY Report Released Date/Time: Aug 22, 2024 04:36 PM Reporting Lab: [facility] [address] Performing Lab: [facility] [address] [address] GLUCOSE,BLOOD- poct (STL) 176 mg/dL H 72-99 Aug 22, 2024 04:23 PM [facility] GLUCOSE,BLOOD-poct (STL) Specimen Type: BLOOD Comment: Test Performed by: [id number] Meter #: [id number] Ordering Provider: SIMEON REDDY Report Released Date/Time: Aug 22, 2024 04:36 PM Reporting Lab: [facility] [address] Performing Lab: [facility] [address] [address] GLUCOSE,BLOOD- poct (STL) 221 mg/dL H 72-99 Aug 22, 2024 11:15 AM [facility] GLUCOSE,BLOOD-poct (STL) Specimen Type: BLOOD Comment: Test Performed by: [id number] Meter #: [id number] Ordering Provider: SIMEON REDDY Report Released Date/Time: Aug 22, 2024 11:27 AM Reporting Lab: [facility] [address] Performing Lab: [facility] [address] [address] GLUCOSE,BLOOD- poct (STL) 140 mg/dL H 72-99 Aug 22, 2024 08:03 AM [facility] FERRITIN Specimen Type: SERUM No comment entered. Ordering Provider: JUDIT PERKINS Report Released Date/Time: Aug 18, 2024 11:01 AM Reporting Lab: [facility] [address] [facility] [address] Performing Lab: [address] [address] FERRITIN 79.50 ng/mL 22-275 Aug 22, 2024 08:03 AM [facility] IRON/TIBC PROFILE Specimen Type: SERUM No comment entered. Ordering Provider: JUDIT PERKINS Report Released Date/Time: Aug 18, 2024 11:01 AM Reporting Lab: [facility] [address] [facility] [address] Performing Lab: [address] [address] TIBC 283 ug/dL 250-450 TRANSFERRIN 226 mg/dL 163-344 IRON SATURATION 7 L 20-50 IRON 19 ug/dL L 65-175 Aug 22, 2024 08:03 AM [facility] B12 Specimen Type: SERUM No comment entered. Ordering Provider: JUDIT PERKINS Report Released Date/Time: Aug 18, 2024 11:01 AM Reporting Lab: [facility] [address] Performing Lab: [facility] [address] B12 631 pg/mL 213-816 Aug 22, 2024 08:03 AM [facility] COMPREHENSIVE METABOLIC PANEL Specimen Type: PLASMA Comment: No hemolysis noted. Ordering Provider: SIMEON REDDY Report Released Date/Time: Aug 17, 2024 01:18 PM Reporting Lab: [facility] [address] [facility] [address] Performing Lab: [address] [address] CREATININE 0.80 mg/dL 0.7-1.3 UREA NITROGEN 9.7 [...] 94.0 >60 Aug 22, 2024 08:03 AM [facility] CBC Specimen Type: BLOOD No comment entered. Ordering Provider: SIMEON REDDY Report Released Date/Time: Aug 17, 2024 01:18 PM Reporting Lab: [facility] [address] Performing Lab: [facility] [address] WBC 3.5 10*3/uL L 3.6-11.2 RBC 3.23 [...] NRBC% 0 Aug 22, 2024 05:03 AM [facility] GLUCOSE,BLOOD-poct (STL) Specimen Type: BLOOD Comment: Test Performed by: [id number] Meter #: [id number] Ordering Provider: SIMEON REDDY Report Released Date/Time: Aug 22, 2024 06:17 AM Reporting Lab: [facility] [address] Performing Lab: [facility] [address] GLUCOSE,BLOOD- poct (STL) 170 mg/dL H 72-99 Aug 21, 2024 04:32 PM [facility] GLUCOSE,BLOOD-poct (STL) Specimen Type: BLOOD Comment: Test Performed by: [id number] Meter #: [id number] Ordering Provider: SIMEON REDDY Report Released Date/Time: Aug 21, 2024 04:49 PM Reporting Lab: [facility] [address] Performing Lab: [facility] [address] [address] GLUCOSE,BLOOD- poct (STL) 169 mg/dL H 72-99 Aug 21, 2024 11:53 AM [facility] GLUCOSE,BLOOD-poct (STL) Specimen Type: BLOOD Comment: Test Performed by: [id number] Meter #: [id number] Ordering Provider: SIMEON REDDY Report Released Date/Time: Aug 21, 2024 12:11 PM Reporting Lab: [facility] [address] [address] Performing Lab: [facility] [address] [facility] [address] GLUCOSE,BLOOD- poct (STL) 149 mg/dL H 72-Aug 21, 2024 05:10 AM [facility] GLUCOSE,BLOOD-poct (STL) Specimen Type: BLOOD Comment: Test Performed by: [id number] Meter #: [id number] Ordering Provider: SIMEON REDDY Report Released Date/Time: Aug 21, 2024 05:27 AM Reporting Lab: [facility] [address] [facility] [address] Performing Lab: [facility] [address] [facility] [address] GLUCOSE,BLOOD- poct (STL) 118 mg/dL H 72-99 Aug 20, 2024 04:38 PM [facility] GLUCOSE,BLOOD-poct (STL) Specimen Type: BLOOD Comment: Test Performed by: [id number] Meter #: [id number] Ordering Provider: SIMEON REDDY Report Released Date/Time: Aug 21, 2024 01:55 AM Reporting Lab: [facility] [address] [address] Performing Lab: [facility] [address] GLUCOSE,BLOOD- poct (STL) 169 mg/dL H -Aug 20, 2024 04:36 PM [facility] GLUCOSE,BLOOD-poct (STL) Specimen Type: BLOOD Comment: Test Performed by: [id number] Meter #: [id number] Ordering Provider: SIMEON REDDY Report Released Date/Time: Aug 21, 2024 01:55 AM Reporting Lab: [facility] [address] Performing Lab: [facility] [address] [facility] [address] GLUCOSE,BLOOD- poct (STL) 395 mg/dL H -Aug 20, 2024 11:45 AM [facility] GLUCOSE,BLOOD-poct (STL) Specimen Type: BLOOD Comment: Test Performed by: [id number] Meter #: [id number] Ordering Provider: SIMEON REDDY Report Released Date/Time: Aug 20, 2024 11:56 AM Reporting Lab: [facility] [address] Performing Lab: [facility] [address] [address] GLUCOSE,BLOOD- poct (STL) 169 mg/dL H -Aug 20, 2024 05:06 AM [facility] GLUCOSE,BLOOD-poct (STL) Specimen Type: BLOOD Comment: Test Performed by: [id number] Meter #: [id number] Ordering Provider: SIMEON REDDY Report Released Date/Time: Aug 20, 2024 06:05 AM Reporting Lab: [facility] [address] Performing Lab: [facility] [address] GLUCOSE,BLOOD- poct (STL) 115 mg/dL H -Aug 19, 2024 04:23 PM [facility] GLUCOSE,BLOOD-poct (STL) Specimen Type: BLOOD Comment: Test Performed by: [id number] Meter #: [id number] Ordering Provider: SIMEON REDDY Report Released Date/Time: Aug 19, 2024 05:54 PM Reporting Lab: [facility] [address] Performing Lab: [facility] [address] GLUCOSE,BLOOD- poct (STL) 137 mg/dL H -Aug 19, 2024 11:28 AM [facility] GLUCOSE,BLOOD-poct (STL) Specimen Type: BLOOD Comment: Test Performed by: [id number] Meter #: [id number] Ordering Provider: SIMEON REDDY Report Released Date/Time: Aug 19, 2024 11:51 AM Reporting Lab: [facility] [address] Performing Lab: [facility] [address] GLUCOSE,BLOOD- poct (STL) 190 mg/dL H Aug 19, 2024 05:21 AM [facility] GLUCOSE,BLOOD-poct (STL) Specimen Type: BLOOD Comment: Test Performed by: [id number] Meter #: [id number] Ordering Provider: SIMEON REDDY Report Released Date/Time: Aug 19, 2024 05:56 AM Reporting Lab: [facility] [address] Performing Lab: [facility] [address] GLUCOSE,BLOOD- poct (STL) 130 mg/dL H Aug 18, 2024 04:49 PM [facility] GLUCOSE,BLOOD-poct (STL) Specimen Type: BLOOD Comment: Test Performed by: [id number] Meter #: [id number] Ordering Provider: SIMEON REDDY Report Released Date/Time: Aug 18, 2024 05:01 PM Reporting Lab: [facility] [address] Performing Lab: [facility] [address] GLUCOSE,BLOOD- poct (STL) 129 mg/dL H 72-Aug 18, 2024 11:23 AM [facility] GLUCOSE,BLOOD-poct (STL) Specimen Type: BLOOD Comment: Test Performed by: [id number] Meter #: [id number] Ordering Provider: SIMEON REDDY Report Released Date/Time: Aug 18, 2024 11:41 AM Reporting Lab: [facility] [address] Performing Lab: [facility] [address] GLUCOSE,BLOOD- poct (STL) 180 mg/dL H -Aug 18, 2024 05:08 AM [facility] GLUCOSE,BLOOD-poct (STL) Specimen Type: BLOOD Comment: Test Performed by: [id number] Meter #: [id number] Ordering Provider: SIMEON REDDY Report Released Date/Time: Aug 18, 2024 05:31 AM Reporting Lab: [facility] [address] Performing Lab: [facility] [address] GLUCOSE,BLOOD- poct (STL) 127 mg/dL H -Aug 17, 2024 07:32 PM [facility] GLUCOSE,BLOOD-poct (STL) Specimen Type: BLOOD Comment: Test Performed by: [id number] Meter #: [id number] Ordering Provider: SIMEON REDDY Report Released Date/Time: Aug 17, 2024 07:59 PM Reporting Lab: [facility] [address] Performing Lab: [facility] [address] GLUCOSE,BLOOD- poct (STL) 154 mg/dL H -Aug 17, 2024 04:24 PM [facility] GLUCOSE,BLOOD-poct (STL) Specimen Type: BLOOD Comment: Test Performed by: [id number] Meter #: [id number] Ordering Provider: SIMEON REDDY Report Released Date/Time: Aug 17, 2024 04:35 PM Reporting Lab: [facility] [address] Performing Lab: [facility] [address] GLUCOSE,BLOOD- poct (STL) 178 mg/dL H Aug 17, 2024 05:09 AM [facility] GLUCOSE,BLOOD-poct (STL) Specimen Type: BLOOD Comment: Test Performed by: [id number] Meter #: [id number] Ordering Provider: SIMEON REDDY Report Released Date/Time: Aug 17, 2024 05:54 AM Reporting Lab: [facility] [address] Performing Lab: [facility] [address] GLUCOSE,BLOOD- poct (STL) 124 mg/dL H Aug 16, 2024 07:40 PM [facility] GLUCOSE,BLOOD-poct (STL) Specimen Type: BLOOD Comment: Test Performed by: [id number] Meter #: [id number] Ordering Provider: SIMEON REDDY Report Released Date/Time: Aug 16, 2024 08:28 PM Reporting Lab: [facility] [address] Performing Lab: [facility] [address] GLUCOSE,BLOOD- poct (STL) 144 mg/dL H Aug 16, 2024 04:19 PM [facility] GLUCOSE,BLOOD-poct (STL) Specimen Type: BLOOD Comment: Test Performed by: [id number] Meter #: [id number] Ordering Provider: SIMEON REDDY Report Released Date/Time: Aug 16, 2024 04:45 PM Reporting Lab: [facility] [address] Performing Lab: [facility] [address] GLUCOSE,BLOOD- poct (STL) 138 mg/dL H Aug 16, 2024 11:52 AM [facility] GLUCOSE,BLOOD-poct (STL) Specimen Type: BLOOD Comment: Test Performed by: [id number] Meter #: [id number] Ordering Provider: SIMEON REDDY Report Released Date/Time: Aug 16, 2024 12:04 PM Reporting Lab: [facility] [address] Performing Lab: [facility] [address] GLUCOSE,BLOOD- poct (STL) 135 mg/dL H Aug 16, 2024 05:24 AM [facility] GLUCOSE,BLOOD-poct (STL) Specimen Type: BLOOD Comment: Test Performed by: [id number] Meter #: [id number] Ordering Provider: SIMEON REDDY Report Released Date/Time: Aug 16, 2024 05:38 AM Reporting Lab: [facility] [address] Performing Lab: [facility] [address] GLUCOSE,BLOOD- poct (STL) 151 mg/dL H Aug 15, 2024 07:31 PM [facility] GLUCOSE,BLOOD-poct (STL) Specimen Type: BLOOD Comment: Test Performed by: [id number] Meter #: [id number] Ordering Provider: SIMEON REDDY Report Released Date/Time: Aug 15, 2024 08:07 PM Reporting Lab: [facility] [address] Performing Lab: [facility] [address] GLUCOSE,BLOOD- poct (STL) 173 mg/dL H -Aug 15, 2024 04:18 PM [facility] GLUCOSE,BLOOD-poct (STL) Specimen Type: BLOOD Comment: Test Performed by: [id number] Meter #: [id number] Ordering Provider: SIMEON REDDY Report Released Date/Time: Aug 15, 2024 04:59 PM Reporting Lab: [facility] [address] Performing Lab: [facility] [address] GLUCOSE,BLOOD- poct (STL) 136 mg/dL H Aug 15, 2024 04:16 PM [facility] GLUCOSE,BLOOD-poct (STL) Specimen Type: BLOOD Comment: Test Performed by: [id number] Meter #: [id number] Ordering Provider: SIMEON REDDY Report Released Date/Time: Aug 15, 2024 04:59 PM Reporting Lab: [facility] [address] Performing Lab: [facility] [address] GLUCOSE,BLOOD- poct (STL) 194 mg/dL H Aug 15, 2024 11:39 AM [facility] GLUCOSE,BLOOD-poct (STL) Specimen Type: BLOOD Comment: Test Performed by: [id number] Meter #: [id number] Ordering Provider: SIMEON REDDY Report Released Date/Time: Aug 15, 2024 12:00 PM Reporting Lab: [facility] [address] Performing Lab: [facility] [address] GLUCOSE,BLOOD- poct (STL) 127 mg/dL H 72-99 Aug 15, 2024 05:07 AM [facility] GLUCOSE,BLOOD-poct (STL) Specimen Type: BLOOD Comment: Test Performed by: [id number] Meter #: [id number] Ordering Provider: SIMEON REDDY Report Released Date/Time: Aug 15, 2024 06:14 AM Reporting Lab: [facility] [address] Performing Lab: [facility] [address] GLUCOSE,BLOOD- poct (STL) 151 mg/dL H -Aug 14, 2024 04:22 PM [facility] GLUCOSE,BLOOD-poct (STL) Specimen Type: BLOOD Comment: Test Performed by: [id number] Meter #: [id number] Ordering Provider: SIMEON REDDY Report Released Date/Time: Aug 14, 2024 04:52 PM Reporting Lab: [facility] [address] Performing Lab: [facility] [address] GLUCOSE,BLOOD- poct (STL) 129 mg/dL H -Aug 14, 2024 11:21 AM [facility] GLUCOSE,BLOOD-poct (STL) Specimen Type: BLOOD Comment: Test Performed by: [id number] Meter #: [id number] Ordering Provider: SIMEON REDDY Report Released Date/Time: Aug 14, 2024 11:37 AM Reporting Lab: [facility] [address] Performing Lab: [facility] [address] GLUCOSE,BLOOD- poct (STL) 135 mg/dL H 72-Aug 14, 2024 06:59 AM [facility] QUANTIFERON-TB,4 TUBE Specimen Type: BLOOD [...] For additional information, please refer to http://education. Swopboard/faq/YGG940 (This link is being provided for information/ educational purposes only.) Test Performed by [facility], [facility], [address] [place] [address] Tommie Garcia M.D., Ph.D., Director of Laboratories , [facility] [id number] Ordering Provider: SIMEON REDDY Report Released Date/Time: Aug 11, 2024 03:58 PM Reporting Lab: [facility] [address] [place] [address] Performing Lab: [facility] [address] [place] [address] .NIL - QUANTIFERON 0.04 [IU]/mL .MITOGEN-NIL 0.39 [IU]/mL .QUANTIFERON INDETERMINATE NEGATIVE .TB1-NIL <0.00 [IU]/mL .TB2-NIL <0.00 [IU]/mL Aug 14, 2024 06:59 AM [facility] MAGNESIUM Specimen Type: PLASMA Comment: No hemolysis noted. Ordering Provider: SIMEON REDDY Report Released Date/Time: Aug 11, 2024 03:58 PM Reporting Lab: [facility] [id number] Performing Lab: [facility] [id number] MAGNESIUM 1.9 mg/dL 1.6-2.6 Aug 14, 2024 06:59 AM [facility] B12 Specimen Type: SERUM No comment entered. Ordering Provider: SIEMON REDDY Report Released Date/Time: Aug 11, 2024 03:58 PM Reporting Lab: [facility] [id number] Performing Lab: [facility] [place] [phone] B12 757 pg/mL [phone] Aug 14, 2024 06:59 AM [facility] ([facility] Specimen Type: SERUM No comment entered. Ordering Provider: SIMEON REDDY Report Released Date/Time: Aug 11, 2024 03:58 PM Reporting Lab: [facility] [id number] Performing Lab: [facility] [id number] [facility] ([facility] 6.8 ng/mL L 7-20 Aug 14, 2024 06:59 AM [facility] VITAMIN D, 25-HYDROXY Specimen Type: SERUM No comment entered. Ordering Provider: SIMEON REDDY Report Released Date/Time: Aug 11, 2024 03:58 PM Reporting Lab: [facility] [id number] Performing Lab: [facility] [id number] VITAMIN D, 25-HYDROXY 8.9 ng/mL L 30-96 Aug 14, 2024 06:59 AM [facility] COMPREHENSIVE METABOLIC PANEL Specimen Type: PLASMA Comment: No hemolysis noted. Ordering Provider: SIMEON REDDY Report Released Date/Time: Aug 11, 2024 03:58 PM Reporting Lab: [facility] [phone] Performing Lab: [facility] [place] [phone] CREATININE 0.75 mg/dL 0.70-1.30 UREA NITROGEN 13.6 [...] 95.88 >60 Aug 14, 2024 06:59 AM [facility] CBC Specimen Type: BLOOD No comment entered. Ordering Provider: SIMEON REDDY Report Released Date/Time: Aug 11, 2024 03:58 PM Reporting Lab: [facility] [place] [phone] Performing Lab: [facility] [place] [phone] WBC 4.1 10*3/uL 3.6-11.2 RBC 3.20 10*6/uL [...] 10*3/uL 0.00-0.20 Aug 14, 2024 05:08 AM [facility] GLUCOSE,BLOOD-poct (STL) Specimen Type: BLOOD Comment: Test Performed by: [id number] Meter #: [id number] Ordering Provider: SIMEON REDDY Report Released Date/Time: Aug 14, 2024 05:52 AM Reporting Lab: [facility] [place] [address] Performing Lab: [facility] [place] [address] GLUCOSE,BLOOD- poct (STL) 135 mg/dL H -Aug 13, 2024 04:27 PM [facility] GLUCOSE,BLOOD-poct (STL) Specimen Type: BLOOD Comment: Test Performed by: [id number] Meter #: [id number] Ordering Provider: SIMEON REDDY Report Released Date/Time: Aug 13, 2024 04:41 PM Reporting Lab: [facility] [place] [address] Performing Lab: [facility] [place] [address] GLUCOSE,BLOOD- poct (STL) 181 mg/dL H -Aug 13, 2024 11:33 AM [facility] GLUCOSE,BLOOD-poct (STL) Specimen Type: BLOOD Comment: Test Performed by: [id number] Meter #: [id number] Ordering Provider: SIMEON REDDY Report Released Date/Time: Aug 13, 2024 03:55 PM Reporting Lab: [facility] [place] [address] Performing Lab: [facility] [phone] GLUCOSE,BLOOD- poct (STL) 140 mg/dL H Aug 13, 2024 05:54 AM [facility] GLUCOSE,BLOOD-poct (STL) Specimen Type: BLOOD Comment: Test Performed by: [id number] Meter #: [id number] Ordering Provider: SIMEON REDDY Report Released Date/Time: Aug 13, 2024 06:20 AM Reporting Lab: [facility] [phone] Performing Lab: [facility] [phone] GLUCOSE,BLOOD- poct (STL) 112 mg/dL H Aug 12, 2024 04:35 PM [facility] GLUCOSE,BLOOD-poct (STL) Specimen Type: BLOOD Comment: Test Performed by: [id number] Meter #: [id number] Ordering Provider: SIMEON REDDY Report Released Date/Time: Aug 12, 2024 04:47 PM Reporting Lab: [facility] [address] [phone] Performing Lab: [facility] [address] [phone] GLUCOSE,BLOOD- poct (STL) 128 mg/dL H Aug 12, 2024 11:26 AM [facility] GLUCOSE,BLOOD-poct (STL) Specimen Type: BLOOD Comment: Test Performed by: [id number] Meter #: [id number] Ordering Provider: SIMEON REDDY Report Released Date/Time: Aug 12, 2024 11:45 AM Reporting Lab: [facility] [phone] Performing Lab: [facility] [phone] GLUCOSE,BLOOD- poct (STL) 188 mg/dL H Aug 12, 2024 06:13 AM [facility] GLUCOSE,BLOOD-poct (STL) Specimen Type: BLOOD Comment: Test Performed by: [id number] Meter #: [id number] Ordering Provider: SIMEON REDDY Report Released Date/Time: Aug 12, 2024 06:25 AM Reporting Lab: [facility] [address] [phone] Performing Lab: [facility] [address] [address] GLUCOSE,BLOOD- poct (STL) 116 mg/dL H 72-99 Aug 11, 2024 04:10 PM [facility] GLUCOSE,BLOOD-poct (STL) Specimen Type: BLOOD Comment: Test Performed by: [id number] Meter #: [id number] Ordering Provider: SIMEON REDDY Report Released Date/Time: Aug 11, 2024 04:27 PM Reporting Lab: [facility] [phone] Performing Lab: [facility] [address] [phone] GLUCOSE,BLOOD- poct (STL) 184 mg/dL H 72-99 Aug 11, 2024 01:44 PM [facility] MRSA SURVL NARES DNA Specimen [...] Aug 11, 2024 02:03 PM Reporting Lab: [address] [phone] Performing Lab: [address] [phone] MRSA SURVL NARES DNA Negative Negative Vital Signs: All taken on the encounter date This section contains inpatient and outpatient Vital Signs collected on the date of the Encounter. Date/Time Temperature Pulse Blood Pressure Respiratory Rate SP02 Pain Height Weight Body Mass Index Source Aug 22, 2024 07:17 PM 98.1 74 117/73 20 95 [facility] Aug 22, 2024 10:30 AM 98.1 55 104/61 18 96 [facility] Aug 22, 2024 05:18 AM 97.9 76 120/77 20 95 [facility] Advance Directives: All [...] DIRECTIVE DISCUSSION ERICK BARDALES [facility] Encounter Notes: All associated encounter notes This section contains the clinical notes associated to the Encounter. Date/Time Encounter Note(s) Provider Source Aug 23, 2024 08:27 AM PHYSICIAN EDUCATION DISCHARGE NOTE: LOCAL TITLE: DISCHARGE INSTRUCTIONS [facility] STANDARD TITLE: PHYSICIAN EDUCATION DISCHARGE NOTE DATE OF NOTE: AUG 23, 2024@08:27 ENTRY DATE: AUG 22, 2024@16:27:56 AUTHOR: SIMEON REDDY COSIGNER: JONAS RAMSAY URGENCY: STATUS: COMPLETED DISCHARGE INSTRUCTIONS [facility] Has ADDENDA DATE OF ADMISSION: Aug 14:02 DATE OF DISCHARGE: Aug REASON(S) FOR BEING IN THE HOSPITAL: ------ It was a pleasure taking care of you at [facility]. 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 You have healed well and have regained your strength. You will continue sternal precautions with no lifting, pushing or pulling of greater than 10lbs until released by surgeon. No driving until released by surgeon. Your blood counts have remained low and you have low iron. You are receiving iron replacement and will need to follow up with the master control technician and your PCP. Your blood sugar medication has been adjusted and your insulin and semaglutide have been stopped. Your Pharm D Marjorie will be following and helping you as you need to adjust your diabetic medication. Continue to monitor your diet and keep a blood sugar log. You are not on any diuretics and need to monitor your weight daily. If you gain more than 2lbs in one day or 5 lbs in in 3 days make sure your pcp is aware. You may need to go back on your bumetanide. YOUR OUTPATIENT CARE TEAM: ------ Team Information Primary Care Team: AUDREY Graham *[facility] Provider: MANUEL BAIRD Position: PHYSICIAN FUTURE APPOINTMENTS: ------ 09/08/2024 11:30 Y[facility]-PODIATRY QI INPATIENT APPOINTMENT 09/29/2024 12:30 [facility]-CARDIOLOGY RESEARCH SOIL SCIENTIST 1 INPATIENT APPOINTMENT 10/02/2024 09:30 AUDREY KAUR STAR RES 2 INPATIENT APPOINTMENT 11/20/2024 10:30 Y[facility]-OPTOMETRY 9 INPATIENT APPOINTMENT 11/21/2024 10:00 YASH-DENTAL HYG 1 INPATIENT APPOINTMENT 12/11/2024 10:30 Y[facility]-ENDOCRINOLOGY FARZANEH INPATIENT APPOINTMENT ADDITIONAL FOLLOW UP CARE: ------ Follow up with your cardiothoracic surgeon Dr. Hirsch YOUR KNOWN ALLERGIES: ------ TRAMADOL CALL YOUR DOCTOR IF YOU HAVE ANY OF THESE PROBLEMS: ------ Cardiovascular Disease (heart problems): Gaining more than 2 pounds in one day, or 5 pounds in two days, Inability to tolerate your usual activities, Feeling of pressure or pain to the chest, back, jaw, shoulder, or arm, Chest pain not relieved by using nitroglycerin tablets , Increasing swelling Diabetes (blood sugar problems): Signs of low blood sugar (Dizziness/sleepiness/shakiness/ confusion/mental changes/sweating), Signs of high blood sugar (Confusion/urinating more/eating or drinking more than usual/stomach pain), Sores or wounds on your feet, Persistent high or low blood sugars, Nausea/vomiting/stomach pain that prevents adequate oral intake PHYSICAL ACTIVITY: ------ Activity as tolerated Other (specify below): No lifting, pushing or pulling greater than 10 lbs. No driving until released by your surgeon. DIET: ------ Oral Nutrition/Diet Instructions 2gm Sodium: A low sodium diet helps treat hypertension, heart conditions, heart failure, fluid retention, and conditions of the kidneys. Tips for following a low-sodium diet include: -Limiting overall intake to around 2000 mg or less daily. -Choosing items that have less than 140 mg per serving can help you stay within the daily recommendations. -Choose less processed foods (lunch meats, canned foods, lindsay, sausage, etc. are typically higher in salt) -Choose more fruits, vegetables, and lean protein sources -Rinse and drain all canned foods -Limit added salt from the shaker, condiments, sauces, gravies, and pickled items -Avoid salt substitutes such as NoSalt or NuSalt unless cleared to use by your doctor -Speak to a Registered Dietitian to learn more ways to lower your sodium intake Diabetic/Consistent Carbohydrate: A carbohydrate-consistent diet is used to help manage blood sugars. Foods such as grains, starchy vegetables, fruits, milk, sweets, and sugary beverages can elevate your blood sugars above the recommended levels. Tips for following a healthier carbohydrate-consistent diet are: -Limit simple sweets and sugary beverages -Choose whole grains, whole fruits, and foods for your carbohydrate choices at meals -Focus on keeping carbohydrate-type foods to no more than ?? (a quarter) of your plate -Speak to a Registered Dietitian to learn more about carbohydrates, healthy recommended daily amounts of carbohydrates, and planning a healthy meal DEVICES AT DISCHARGE: ------ Not Applicable: The patient should be discharged with no urinary catheter or intravenous access TOBACCO & ALCOHOL: ------ Discharge tobacco cessation medication(s) not indicated due to: Other reason(s) documented by physician/MAKEUP SALES ADVISOR/PA or pharmacist Reason(s): n/a Discharge medications for alcohol/drug disorder not offered Reason: n/a DISCHARGE INSTRUCTIONAL MATERIALS: ------ CONDITION OF PATIENT AT DISCHARGE: ------ stable DISCHARGE DESTINATION: ------ home ------ NOTE: If you are having feelings of Depression or Emotional Distress, or feel you just need to talk with someone, please call [phone]), [facility] 1. COPY OF DISCHARGE INSTRUCTIONS: ------ The patient/family understands and will be provided a copy of these discharge instructions. MEDICATIONS THAT WERE CHANGED: ------ 1. Atorvastatin for cholesterol was increased 2. Omeprazole dose was increased for GERD 3. Metformin dose was decreased MEDICATIONS THAT WERE STOPPED (AND REASON FOR STOPPING): ------ 1. Bumetanide was stopped 2. Meloxicam stopped 3. No Advil, naproxen or ibuprofen 4. Insulin aspart has stopped 5. Insulin Glargine has stopped 6. Sacubitril/vlasartan was stopped 7. Semaglutide was stopped NEW MEDICATIONS WITH INSTRUCTIONS: ------ 1. Clopidogrel for clot prevention 2. Ergocalciferol for vitamin D replacement You take once a week on Mondays. 3. Folic Acid for replacement 4. Ferrous sulfate for replacement 5. Magnesium for replacement DISCHARGE MEDICATION LIST: ------ Active Outpatient Medications (including Supplies): Active Outpatient [...] RINSE MOUTHPIECE FREQUENTLY TO PREVENT CLOGGING. 3) ASPIRIN 81MG EC TAB TAKE ONE TABLET BY MOUTH ONCE A ACTIVE (S) DAY TAKE WITH FOOD. 4) ATORVASTATIN CALCIUM 80MG TAB TAKE ONE TABLET BY ACTIVE (S) MOUTH EVERY EVENING 5) CARBOXYMETHYLCELLULOSE NA 0.5% OPH SOLN INSTILL 1 ACTIVE DROP IN BOTH EYES FOUR TIMES A DAY NEEDED FOR DRY EYE(S) 6) CARVEDILOL 6.25MG TAB TAKE ONE-HALF TABLET BY MOUTH ACTIVE TWICE A DAY HEART FAILURE TAKE WITH FOOD. 7) CLOPIDOGREL BISULFATE 75MG TAB TAKE ONE TABLET BY ACTIVE (S) MOUTH ONCE A DAY 8) DEXTROSE 24GM/31GM SQUEEZE TUBE TAKE 1 TUBE BY MOUTH ACTIVE NEEDED FOR LOW BLOOD SUGAR REPEAT DOSE IF HYPOGLYCEMIA CONTINUES 15 MINUTES AFTER THE FIRST DOSE. 9) DULOXETINE HCL 60MG EC CAP TAKE ONE CAPSULE BY MOUTH ACTIVE ONCE A DAY FOR NERVE PAIN DO NOT ABRUPTLY DISCONTINUE MEDICATION. 10) ERGOCALCIF 1,250MCG (D2-50,000UNIT) CAP TAKE ONE ACTIVE CAPSULE BY MOUTH WEEKLY 11) FERROUS SULFATE 325MG TAB TAKE ONE TABLET BY MOUTH ACTIVE (S) ONCE A DAY 12) FOLIC ACID 1MG TAB TAKE ONE TABLET BY MOUTH ONCE A ACTIVE (S) DAY 13) GLUCOSE SENSOR FREESTYLE RADHIKA 3 PLUS USE SENSOR ACTIVE EVERY 15 DAYS FOR BLOOD SUGAR MONITORING CHANGE SENSOR/SITE EVERY 15 DAYS. TO REPLACE SENSOR FOR ANY REASON OR FOR TECHNICAL HELP PLEASE CALL [facility] HELP DESK: -SPECIFIC PHONE NUMBER: ([phone]). 14) ISOSORBIDE MONONITRATE 30MG SA TAB TAKE ONE-HALF ACTIVE (S) TABLET BY MOUTH ONCE A DAY TAKE ON EMPTY STOMACH. SWALLOW WHOLE. DO NOT CRUSH OR CHEW. 15) MAGNESIUM OXIDE 400MG TAB TAKE ONE TABLET BY MOUTH ACTIVE (S) TWICE A DAY 16) METFORMIN HCL 750MG 24HR SA TAB TAKE ONE TABLET BY ACTIVE (S) MOUTH ONCE A DAY FOR BLOOD SUGAR CONTROL. TAKE WITH FOOD. AVOID ALCOHOL. DISCONTINUE BEFORE GETTING XRAY DYE. 17) METHOCARBAMOL 500MG TAB TAKE 1 TABLET BY MOUTH TWICE ACTIVE DAILY NEEDED FOR MUSCLE SPASM 18) MULTIVITAMIN CAP/TAB TAKE 1 TABLET BY MOUTH ONCE A ACTIVE DAY FOR NUTRITION/DIETARY SUPPLEMENTATION 19) NEEDLE,PEN 31G,5MM USE 1 NEEDLE UNDER THE SKIN TWICE ACTIVE A DAY FOR LONG ACTING INSULIN AND MEALTIME INSULIN 20) OMEPRAZOLE 40MG EC CAP TAKE ONE CAPSULE BY MOUTH ACTIVE (S) EVERY MORNING TO LOWER STOMACH ACID. TAKE 30 MINUTES PRIOR TO FOOD. 21) PREGABALIN 100MG ORAL CAP TAKE ONE CAPSULE BY MOUTH ACTIVE TWICE A DAY *MAY CAUSE DROWSINESS* 22) TRANSPARENT DRESSING 2 3/8IN X 2 3/4IN USE/APPLY ACTIVE DRESSING(S) TO AFFECTED AREA(S) TWO TIMES PER WEEK FOR WOUND CARE Active Remote Medications: No Active Remote Medications for this patient /shen/ Simeon Reddy APN,ACCOUNT SUPERVISOR-BC Advanced Practice Nurse Signed: 08/23/2024 09:16 /shen/ JONAS RAMSAY Physician-Color Shop Helper, CLC-ECRS Cosigned: 08/23/2024 09:57 08/23/2024 ADDENDUM STATUS: COMPLETED Follow-up appointment with Dr. Mckee Cardiothoracic Surgery on September at 1315. Arrive 30 minutes early and go across [address] to have chest x-ray obtained prior to appointment. [address] [place] [address] [address]: [address] Floor: . /shen/ Simeon Reddy APN,ACCOUNT SUPERVISOR- Advanced Practice Nurse Signed: 08/23/2024 09:41 /shen/ JONAS RAMSAY Physician-Color Shop Helper, CLC-ECRS Cosigned: 08/23/2024 09:58 SIMEON REDDY [facility]
--- OUTSIDE RECORDS SUMMARY | 2024-11-17 04:09 | XMS_ITS ---
[place] DAILY HOSPITALIZATION DATA [facility] Encounter Summary Created on: November 16, 2024 CHET WALKER : 1950 Sex: Male Author Name [facility] [facility] Address [address] [place] [address] Care Team Providers Care Bobbin Coil Winder Name Role Phone MANUEL BAIRD Primary Care [...] PART A Apr 08, 2017 PART A [id number] ASHLEY WALKER PATIENT Selected Encounter This section includes the information on record at [place] for the Encounter. Date/Time Encounter Type Encounter Description Reason Pro vider Source Aug 23, 2024 03:39 AM Inpatient Visit DAILY HOSPITALIZATION DATA YVONNE PHILLIP Encounter Template Text not used by VA [...] The data comes from all [facility]. Appointment Date/Time Appointment Type Appointme nt Facility [...] 11:00 AM AMBULATORY - MEDICINE [facility] Sep 29, 2024 12:30 PM AMBULATORY - MEDICINE [facility] Oct 02, 2024 09:30 AM AMBULATORY - MEDICINE [facility] Nov 20, 2024 10:30 AM AMBULATORY - SURGERY [facility] Nov 21, 2024 10:00 AM AMBULATORY - NONE [facility] Dec 11, 2024 10:30 AM AMBULATORY - MEDICINE [facility] Active, Pending, and Scheduled Orders This section includes a listing of several types of active, pending, and scheduled orders, including clinic medications orders, diagnostic test orders, procedure orders and consult orders; where the start date of the order is 45 days before the date of the Encounter or 45 days after the date of theEncounter. The data comes from all [facility]. Test Date/Time Test Type Test Details Facility Name Aug 02, 2024 12:00 AM Laboratory - Chemistry Order CBC BLOOD STAT SP [facility] Aug 02, 2024 12:00 AM Laboratory - Chemistry Order COMPREHENSIVE METABOLIC PANEL GREEN LI/HEP BLD/PLAS PLASMA SP [facility] Aug 17, 2024 03:47 PM Consult Order [facility] Cons Bedside [facility] Lab Results: +/- 30 days [...] Aug 23, 2024 08:21 AM [facility] MAGNESIUM Specimen Type: PLASMA No comment entered. Ordering Provider: SILVIA REDDY Report Released Date/Time: Aug 22, 2024 11:26 AM Reporting Lab: [facility] [address] Performing Lab: [facility] [address] MAGNESIUM 1.8 mg/dL 1.6-2.6 Aug 23, 2024 08:21 AM [facility] CBC Specimen Type: BLOOD No comment entered. Ordering Provider: SILVIA REDDY Report Released Date/Time: Aug 22, 2024 11:19 AM Reporting Lab: [facility] [address] Performing Lab: [facility] [address] WBC 4.0 10*3/uL 3.6-11.2 RBC 3.65 10*6/uL [...] Aug 23, 2024 05:12 AM [facility] GLUCOSE,BLOOD-poct (STL) Specimen Type: BLOOD Comment: Test Performed by: [id number] Meter #: [id number] Ordering Provider: SILVIA REDDY Report Released Date/Time: Aug 23, 2024 05:23 AM Reporting Lab: [facility] [address] Performing Lab: [facility] #[facility] [address] GLUCOSE,BLOOD- poct (STL) 99 mg/dL 72-99 Aug 23, 2024 02:45 AM [facility] OCCULT BLOOD FIT X1 SCREEN Specimen Type: FECES No comment entered. Ordering Provider: SILVIA REDDY Report Released Date/Time: Aug 22, 2024 11:23 AM Reporting Lab: [address] [address] Performing Lab: [address] [address] OCCULT BLOOD (FIT) #1 OF 1 Negative Negative Aug 22, 2024 07:30 PM [facility] OCCULT BLOOD FIT X1 SCREEN Specimen Type: FECES No comment entered. Ordering Provider: SILVIA REDDY Report Released Date/Time: Aug 22, 2024 11:23 AM Reporting Lab: [address] [address] Performing Lab: [address] [address] OCCULT BLOOD (FIT) #1 OF 1 Negative Negative Aug 22, 2024 06:15 PM [facility] OCCULT BLOOD FIT X1 SCREEN Specimen Type: FECES No comment entered. Ordering Provider: SILVIA REDDY Report Released Date/Time: Aug 22, 2024 11:23 AM Reporting Lab: [address] [address] Performing Lab: [place] [address] [facility] [address] OCCULT BLOOD (FIT) #1 OF 1 Negative Negative Aug 22, 2024 04:24 PM [facility] GLUCOSE,BLOOD-poct (STL) Specimen Type: BLOOD Comment: Test Performed by: [id number] Meter #: [id number] Ordering Provider: SILVIA REDDY Report Released Date/Time: Aug 22, 2024 04:36 PM Reporting Lab: [facility] [address] Performing Lab: [facility] #[facility] [address] GLUCOSE,BLOOD- poct (STL) 176 mg/dL H -Aug 22, 2024 04:23 PM [facility] GLUCOSE,BLOOD-poct (STL) Specimen Type: BLOOD Comment: Test Performed by: [id number] Meter #: [id number] Ordering Provider: SILVIA REDDY Report Released Date/Time: Aug 22, 2024 04:36 PM Reporting Lab: [facility] [address] Performing Lab: [facility] #[facility] [address] GLUCOSE,BLOOD- poct (STL) 221 mg/dL H 72-Aug 22, 2024 11:15 AM [facility] GLUCOSE,BLOOD-poct (STL) Specimen Type: BLOOD Comment: Test Performed by: [id number] Meter #: [id number] Ordering Provider: SILVIA REDDY Report Released Date/Time: Aug 22, 2024 11:27 AM Reporting Lab: [facility] [address] Performing Lab: [facility] #[facility] [address] GLUCOSE,BLOOD- poct (STL) 140 mg/dL H 72-Aug 22, 2024 08:[address] [facility] FERRITIN Specimen Type: SERUM No comment entered. Ordering Provider: JUDIT PERKINS Report Released Date/Time: Aug 18, 2024 11:01 AM Reporting Lab: [facility] [address] [facility] [address] Performing Lab: [facility] [address] [facility] [address] FERRITIN 79.50 ng/mL 22-275 Aug 22, 2024 08:03 AM [facility] B12 Specimen Type: SERUM No comment entered. Ordering Provider: JUDIT PERKINS Report Released Date/Time: Aug 18, 2024 11:01 AM Reporting Lab: [facility] [address] Performing Lab: [facility] [address] B12 631 pg/mL 213-816 Aug 22, 2024 08:03 AM [facility] IRON/TIBC PROFILE Specimen Type: SERUM No comment entered. Ordering Provider: JUDIT PERKINS Report Released Date/Time: Aug 18, 2024 11:01 AM Reporting Lab: [place] [address] [facility] [address] Performing Lab: [facility] [address] [place] [address] TIBC 283 ug/dL 250-450 TRANSFERRIN 226 mg/dL 163-344 IRON SATURATION 7 L 20-50 IRON 19 ug/dL L 65-175 Aug 22, 2024 08:03 AM [facility] COMPREHENSIVE METABOLIC PANEL Specimen Type: PLASMA Comment: No hemolysis noted. Ordering Provider: SILVIA REDDY Report Released Date/Time: Aug 17, 2024 01:18 PM Reporting Lab: [facility] [address] [facility] [address] Performing Lab: [address] [address] CREATININE 0.80 mg/dL 0.7-1.3 UREA NITROGEN 9.7 [...] Lab: [facility] [address] Performing Lab: [facility] [address] WBC 3.5 10*3/uL L 3.6-11.2 RBC 3.23 [...] Aug 22, 2024 05:03 AM [facility] GLUCOSE,BLOOD-poct (STL) Specimen Type: BLOOD Comment: Test Performed by: [id number] Meter #: [id number] Ordering Provider: SILVIA REDDY Report Released Date/Time: Aug 22, 2024 06:17 AM Reporting Lab: [facility] [address] Performing Lab: [facility] [address] GLUCOSE,BLOOD- poct (STL) 170 mg/dL H 72-Aug 21, 2024 04:32 PM [facility] GLUCOSE,BLOOD-poct (STL) Specimen Type: BLOOD Comment: Test Performed by: [id number] Meter #: [id number] Ordering Provider: SILVIA REDDY Report Released Date/Time: Aug 21, 2024 04:49 PM Reporting Lab: [facility] [address] Performing Lab: [facility] [address] GLUCOSE,BLOOD- poct (STL) 169 mg/dL H -Aug 21, 2024 11:53 AM [facility] GLUCOSE,BLOOD-poct (STL) Specimen Type: BLOOD Comment: Test Performed by: [id number] Meter #: [id number] Ordering Provider: SILVIA REDDY Report Released Date/Time: Aug 21, 2024 12:11 PM Reporting Lab: [facility] [address] Performing Lab: [facility] [address] [address] GLUCOSE,BLOOD- poct (STL) 149 mg/dL H 72-Aug 21, 2024 05:10 AM [facility] GLUCOSE,BLOOD-poct (STL) Specimen Type: BLOOD Comment: Test Performed by: [id number] Meter #: [id number] Ordering Provider: SILVIA REDDY Report Released Date/Time: Aug 21, 2024 05:27 AM Reporting Lab: [facility] [address] Performing Lab: [facility] [address] [address] GLUCOSE,BLOOD- poct (STL) 118 mg/dL H 72-Aug 20, 2024 04:38 PM [facility] GLUCOSE,BLOOD-poct (STL) Specimen Type: BLOOD Comment: Test Performed by: [id number] Meter #: [id number] Ordering Provider: SILVIA REDDY Report Released Date/Time: Aug 21, 2024 01:55 AM Reporting Lab: [facility] [address] Performing Lab: [facility] [address] [place] [address] GLUCOSE,BLOOD- poct (STL) 169 mg/dL H -Aug 20, 2024 04:36 PM [facility] GLUCOSE,BLOOD-poct (STL) Specimen Type: BLOOD Comment: Test Performed by: [id number] Meter #: [id number] Ordering Provider: SILVIA REDDY Report Released Date/Time: Aug 21, 2024 01:55 AM Reporting Lab: [facility] [address] Performing Lab: [facility] [address] [address] GLUCOSE,BLOOD- poct (STL) 395 mg/dL H 72-Aug 20, 2024 11:45 AM [facility] GLUCOSE,BLOOD-poct (STL) Specimen Type: BLOOD Comment: Test Performed by: [id number] Meter #: [id number] Ordering Provider: SILVIA REDDY Report Released Date/Time: Aug 20, 2024 11:56 AM Reporting Lab: [facility] [address] [place] [address] Performing Lab: [facility] [address] GLUCOSE,BLOOD- poct (STL) 169 mg/dL H -Aug 20, 2024 05:06 AM [facility] GLUCOSE,BLOOD-poct (STL) Specimen Type: BLOOD Comment: Test Performed by: [id number] Meter #: [id number] Ordering Provider: SILVIA REDDY Report Released Date/Time: Aug 20, 2024 06:05 AM Reporting Lab: [facility] [address] Performing Lab: [facility] [address] GLUCOSE,BLOOD- poct (STL) 115 mg/dL H -Aug 19, 2024 04:23 PM [facility] GLUCOSE,BLOOD-poct (STL) Specimen Type: BLOOD Comment: Test Performed by: [id number] Meter #: [id number] Ordering Provider: SILVIA REDDY Report Released Date/Time: Aug 19, 2024 05:54 PM Reporting Lab: [facility] [address] Performing Lab: [facility] [address] GLUCOSE,BLOOD- poct (STL) 137 mg/dL H -Aug 19, 2024 11:28 AM [facility] GLUCOSE,BLOOD-poct (STL) Specimen Type: BLOOD Comment: Test Performed by: [id number] Meter #: [id number] Ordering Provider: SILVIA REDDY Report Released Date/Time: Aug 19, 2024 11:51 AM Reporting Lab: [facility] [address] Performing Lab: [facility] [address] GLUCOSE,BLOOD- poct (STL) 190 mg/dL H Aug 19, 2024 05:21 AM [facility] GLUCOSE,BLOOD-poct (STL) Specimen Type: BLOOD Comment: Test Performed by: [id number] Meter #: [id number] Ordering Provider: SILVIA REDDY Report Released Date/Time: Aug 19, 2024 05:56 AM Reporting Lab: [facility] [address] Performing Lab: [facility] #[facility] [address] GLUCOSE,BLOOD- poct (STL) 130 mg/dL H Aug 18, 2024 04:49 PM [facility] GLUCOSE,BLOOD-poct (STL) Specimen Type: BLOOD Comment: Test Performed by: [id number] Meter #: [id number] Ordering Provider: SILVIA REDDY Report Released Date/Time: Aug 18, 2024 05:01 PM Reporting Lab: [facility] [address] Performing Lab: [facility] #[facility] [address] GLUCOSE,BLOOD- poct (STL) 129 mg/dL H Aug 18, 2024 11:23 AM [facility] GLUCOSE,BLOOD-poct (STL) Specimen Type: BLOOD Comment: Test Performed by: [id number] Meter #: [id number] Ordering Provider: SILVIA REDDY Report Released Date/Time: Aug 18, 2024 11:41 AM Reporting Lab: [facility] [address] Performing Lab: [facility] #[facility] [address] GLUCOSE,BLOOD- poct (STL) 180 mg/dL H Aug 18, 2024 05:08 AM [facility] GLUCOSE,BLOOD-poct (STL) Specimen Type: BLOOD Comment: Test Performed by: [id number] Meter #: [id number] Ordering Provider: SILVIA REDDY Report Released Date/Time: Aug 18, 2024 05:31 AM Reporting Lab: [facility] [address] Performing Lab: [facility] #[facility] [address] GLUCOSE,BLOOD- poct (STL) 127 mg/dL H -Aug 17, 2024 07:32 PM [facility] GLUCOSE,BLOOD-poct (STL) Specimen Type: BLOOD Comment: Test Performed by: [id number] Meter #: [id number] Ordering Provider: SILVIA REDDY Report Released Date/Time: Aug 17, 2024 07:59 PM Reporting Lab: [facility] [address] Performing Lab: [facility] #[facility] [address] GLUCOSE,BLOOD- poct (STL) 154 mg/dL H -Aug 17, 2024 04:24 PM [facility] GLUCOSE,BLOOD-poct (STL) Specimen Type: BLOOD Comment: Test Performed by: [id number] Meter #: [id number] Ordering Provider: SILVIA REDDY Report Released Date/Time: Aug 17, 2024 04:35 PM Reporting Lab: [facility] [address] Performing Lab: [facility] [address] GLUCOSE,BLOOD- poct (STL) 178 mg/dL H -Aug 17, 2024 05:09 AM [facility] GLUCOSE,BLOOD-poct (STL) Specimen Type: BLOOD Comment: Test Performed by: [id number] Meter #: [id number] Ordering Provider: SILVIA REDDY Report Released Date/Time: Aug 17, 2024 05:54 AM Reporting Lab: [facility] [address] [place] [address] Performing Lab: [facility] [address] GLUCOSE,BLOOD- poct (STL) 124 mg/dL H -Aug 16, 2024 07:40 PM [facility] GLUCOSE,BLOOD-poct (STL) Specimen Type: BLOOD Comment: Test Performed by: [id number] Meter #: [id number] Ordering Provider: SILVIA REDDY Report Released Date/Time: Aug 16, 2024 08:28 PM Reporting Lab: [facility] [address] Performing Lab: [facility] [address] GLUCOSE,BLOOD- poct (STL) 144 mg/dL H Aug 16, 2024 04:19 PM [facility] GLUCOSE,BLOOD-poct (STL) Specimen Type: BLOOD Comment: Test Performed by: [id number] Meter #: [id number] Ordering Provider: SILVIA REDDY Report Released Date/Time: Aug 16, 2024 04:45 PM Reporting Lab: [facility] [address] Performing Lab: [facility] [address] GLUCOSE,BLOOD- poct (STL) 138 mg/dL H Aug 16, 2024 11:52 AM [facility] GLUCOSE,BLOOD-poct (STL) Specimen Type: BLOOD Comment: Test Performed by: [id number] Meter #: [id number] Ordering Provider: SILVIA REDDY Report Released Date/Time: Aug 16, 2024 12:04 PM Reporting Lab: [facility] [address] Performing Lab: [facility] [address] GLUCOSE,BLOOD- poct (STL) 135 mg/dL H Aug 16, 2024 05:24 AM [facility] GLUCOSE,BLOOD-poct (STL) Specimen Type: BLOOD Comment: Test Performed by: [id number] Meter #: [id number] Ordering Provider: SILVIA RDEDY Report Released Date/Time: Aug 16, 2024 05:38 AM Reporting Lab: [facility] [address] Performing Lab: [facility] [address] GLUCOSE,BLOOD- poct (STL) 151 mg/dL H Aug 15, 2024 07:31 PM [facility] GLUCOSE,BLOOD-poct (STL) Specimen Type: BLOOD Comment: Test Performed by: [id number] Meter #: [id number] Ordering Provider: SILVIA REDDY Report Released Date/Time: Aug 15, 2024 08:07 PM Reporting Lab: [facility] [address] Performing Lab: [facility] #[facility] [address] GLUCOSE,BLOOD- poct (STL) 173 mg/dL H Aug 15, 2024 04:18 PM [facility] GLUCOSE,BLOOD-poct (STL) Specimen Type: BLOOD Comment: Test Performed by: [id number] Meter #: [id number] Ordering Provider: SILVIA REDDY Report Released Date/Time: Aug 15, 2024 04:59 PM Reporting Lab: [facility] [address] Performing Lab: [facility] #[facility] [address] GLUCOSE,BLOOD- poct (STL) 136 mg/dL H Aug 15, 2024 04:16 PM [facility] GLUCOSE,BLOOD-poct (STL) Specimen Type: BLOOD Comment: Test Performed by: [id number] Meter #: [id number] Ordering Provider: SILVIA REDDY Report Released Date/Time: Aug 15, 2024 04:59 PM Reporting Lab: [facility] [address] Performing Lab: [facility] #[facility] [address] GLUCOSE,BLOOD- poct (STL) 194 mg/dL H -Aug 15, 2024 11:39 AM [facility] GLUCOSE,BLOOD-poct (STL) Specimen Type: BLOOD Comment: Test Performed by: [id number] Meter #: [id number] Ordering Provider: SILVIA REDDY Report Released Date/Time: Aug 15, 2024 12:00 PM Reporting Lab: [facility] [address] Performing Lab: [facility] [address] GLUCOSE,BLOOD- poct (STL) 127 mg/dL H -Aug 15, 2024 05:07 AM [facility] GLUCOSE,BLOOD-poct (STL) Specimen Type: BLOOD Comment: Test Performed by: [id number] Meter #: [id number] Ordering Provider: SILVIA REDDY Report Released Date/Time: Aug 15, 2024 06:14 AM Reporting Lab: [facility] [address] Performing Lab: [facility] [address] GLUCOSE,BLOOD- poct (STL) 151 mg/dL H -Aug 14, 2024 04:22 PM [facility] GLUCOSE,BLOOD-poct (STL) Specimen Type: BLOOD Comment: Test Performed by: [id number] Meter #: [id number] Ordering Provider: SILVIA REDDY Report Released Date/Time: Aug 14, 2024 04:52 PM Reporting Lab: [facility] [place] [address] Performing Lab: [facility] [address] GLUCOSE,BLOOD- poct (STL) 129 mg/dL H 72-99 Aug 14, 2024 11:21 AM [facility] GLUCOSE,BLOOD-poct (STL) Specimen Type: BLOOD Comment: Test Performed by: [id number] Meter #: [id number] Ordering Provider: SILVIA REDDY Report Released Date/Time: Aug 14, 2024 11:37 AM Reporting Lab: [facility] [address] Performing Lab: [facility] [address] GLUCOSE,BLOOD- poct (STL) 135 mg/dL H 72-99 Aug 14, 2024 06:59 AM [facility] QUANTIFERON-TB,4 TUBE Specimen Type: BLOOD Comment: normalcy [...] For additional information, please refer to http://education. Project 2020/faq/TCM432 (This link is being provided for information/ educational purposes only.) Test Performed by [employer], [employer] [facility], [address] [place] [address] Tommie Garcia M.D., Ph.D., Director of Laboratories , [facility] [id number] Ordering Provider: SILVIA REDDY Report Released Date/Time: Aug 11, 2024 03:58 PM Reporting Lab: [facility] [address] [facility] [address] Performing Lab: [facility] [id number] [place] [id number] .NIL - QUANTIFERON 0.04 [IU]/mL .MITOGEN-NIL 0.39 [IU]/mL .QUANTIFERON INDETERMINATE NEGATIVE .TB1-NIL <0.00 [IU]/mL .TB2-NIL <0.00 [IU]/mL Aug 14, 2024 06:59 AM [facility] MAGNESIUM Specimen Type: PLASMA Comment: No hemolysis noted. Ordering Provider: SILVIA REDDY Report Released Date/Time: Aug 11, 2024 03:58 PM Reporting Lab: [facility] [facility] [id number] Performing Lab: [facility] [id number] MAGNESIUM 1.9 mg/dL 1.6-2.6 Aug 14, 2024 06:59 AM [facility] B12 Specimen Type: SERUM No comment entered. Ordering Provider: SILVIA REDDY Report Released Date/Time: Aug 11, 2024 03:58 PM Reporting Lab: [facility] [id number] Performing Lab: [facility] [address] B12 757 pg/mL 213-816 Aug 14, 2024 06:59 AM [facility] FOLATE (STL-MA) Specimen Type: SERUM No comment entered. Ordering Provider: SILVIA REDDY Report Released Date/Time: Aug 11, 2024 03:58 PM Reporting Lab: [facility] [address] Performing Lab: [facility] [id number] FOLATE (STL-MA) 6.8 ng/mL L 7-20 Aug 14, 2024 06:59 AM [facility] VITAMIN D, 25-HYDROXY Specimen Type: SERUM No comment entered. Ordering Provider: SILVIA REDDY Report Released Date/Time: Aug 11, 2024 03:58 PM Reporting Lab: [facility] [phone] Performing Lab: [facility] [id number] VITAMIN D, 25-HYDROXY 8.9 ng/mL L 30-96 Aug 14, 2024 06:59 AM [facility] COMPREHENSIVE METABOLIC PANEL Specimen Type: PLASMA Comment: No hemolysis noted. Ordering Provider: SILVIA REDDY Report Released Date/Time: Aug 11, 2024 03:58 PM Reporting Lab: [facility] [address] Performing Lab: [facility] [address] CREATININE 0.75 mg/dL 0.70-1.30 UREA NITROGEN 13.6 [...] AM [facility] CBC Specimen Type: BLOOD No comment entered. Ordering Provider: SILVIA REDDY Report Released Date/Time: Aug 11, 2024 03:58 PM Reporting Lab: [facility] [address] Performing Lab: [facility] [address] WBC 4.1 10*3/uL 3.6-11.2 RBC 3.20 10*6/uL [...] Aug 14, 2024 05:08 AM [facility] GLUCOSE,BLOOD-poct (STL) Specimen Type: BLOOD Comment: Test Performed by: [id number] Meter #: [id number] Ordering Provider: SILVIA REDDY Report Released Date/Time: Aug 14, 2024 05:52 AM Reporting Lab: [facility] [address] Performing Lab: [facility] [address] GLUCOSE,BLOOD- poct (STL) 135 mg/dL H 72-99 Aug 13, 2024 04:27 PM [facility] GLUCOSE,BLOOD-poct (STL) Specimen Type: BLOOD Comment: Test Performed by: [id number] Meter #: [id number] Ordering Provider: SILVIA REDDY Report Released Date/Time: Aug 13, 2024 04:41 PM Reporting Lab: [facility] #[facility] [address] Performing Lab: [facility] [address] GLUCOSE,BLOOD- poct (STL) 181 mg/dL H -Aug 13, 2024 11:33 AM [facility] GLUCOSE,BLOOD-poct (STL) Specimen Type: BLOOD Comment: Test Performed by: [id number] Meter #: [id number] Ordering Provider: SILVIA REDDY Report Released Date/Time: Aug 13, 2024 03:55 PM Reporting Lab: [facility] [address] Performing Lab: [facility] [place] [address] GLUCOSE,BLOOD- poct (STL) 140 mg/dL H Aug 13, 2024 05:54 AM [facility] GLUCOSE,BLOOD-poct (STL) Specimen Type: BLOOD Comment: Test Performed by: [id number] Meter #: [id number] Ordering Provider: SILVIA REDDY Report Released Date/Time: Aug 13, 2024 06:20 AM Reporting Lab: [facility] [address] Performing Lab: [facility] [address] GLUCOSE,BLOOD- poct (STL) 112 mg/dL H Aug 12, 2024 04:35 PM [facility] GLUCOSE,BLOOD-poct (STL) Specimen Type: BLOOD Comment: Test Performed by: [id number] Meter #: [id number] Ordering Provider: SILVIA REDDY Report Released Date/Time: Aug 12, 2024 04:47 PM Reporting Lab: [facility] [address] Performing Lab: [facility] #[facility] [address] GLUCOSE,BLOOD- poct (STL) 128 mg/dL H 72-99 Aug 12, 2024 11:26 AM [facility] GLUCOSE,BLOOD-poct (STL) Specimen Type: BLOOD Comment: Test Performed by: [id number] Meter #: [id number] Ordering Provider: SILVIA REDDY Report Released Date/Time: Aug 12, 2024 11:45 AM Reporting Lab: [facility] [address] Performing Lab: [facility] #[facility] [address] GLUCOSE,BLOOD- poct (STL) 188 mg/dL H 72-Aug 12, 2024 06:13 AM [facility] GLUCOSE,BLOOD-poct (STL) Specimen Type: BLOOD Comment: Test Performed by: [id number] Meter #: [id number] Ordering Provider: SILVIA REDDY Report Released Date/Time: Aug 12, 2024 06:25 AM Reporting Lab: [facility] [address] Performing Lab: [facility] #[facility] [address] GLUCOSE,BLOOD- poct (STL) 116 mg/dL H 72-99 Aug 11, 2024 04:10 PM [facility] GLUCOSE,BLOOD-poct (STL) Specimen Type: BLOOD Comment: Test Performed by: [id number] Meter #: [id number] Ordering Provider: SILVIA REDDY Report Released Date/Time: Aug 11, 2024 04:27 PM Reporting Lab: [facility] #[address] [place] [address] Performing Lab: [facility] [place] [address] GLUCOSE,BLOOD- poct (STL) 184 mg/dL H 72-99 Aug 11, 2024 01:44 PM [facility] MRSA SURVL NARES DNA Specimen Type: NARES [...] Aug 11, 2024 02:03 PM Reporting Lab: [address] [address] Performing Lab: [address] [address] MRSA SURVL NARES DNA Negative Negative Vital Signs: All taken on the encounter date This section contains inpatient and outpatient Vital Signs collected on the date of the Encounter. Date/Time Temperature Pulse Blood Pressure Respiratory Rate SP02 Pain Height Weight Body Mass Index Source Aug 23, 2024 09:39 AM 0 [facility] N Aug 23, 2024 05:19 AM 71 124/62 99 [facility] N Advance Directives: All historical and current [...]
--- OUTSIDE RECORDS SUMMARY | 2024-11-17 04:09 | XMS_ITS ---
[place] DAILY HOSPITALIZATION DATA [facility] Encounter Summary Created on: November 16, 2024 CHET WALKER : 1950 Sex: Male Author Name [facility] [place] [facility] [place] Address [address] [place] [address] Care Team Providers Care Conservation Coordinator Name Role Phone MANUEL BAIRD Primary [...] PART A Apr 08, 2017 PART A [id number] ASHLEY WALKER PATIENT Selected Encounter This section includes the information on record at [place] for the Encounter. Date/Time Encounter Type Encounter Description Reason Pro vider Source Aug 22, 2024 03:27 PM Inpatient Visit DAILY HOSPITALIZATION DATA [facility] [...] The data comes from all [facility]. Appointment Date/Time Appointment Type Appointme nt Facility Name Aug 24, 2024 10:00 AM AMBULATORY - MEDICINE [facility] Aug 24, 2024 10:30 AM AMBULATORY - MEDICINE [facility] Aug 30, 2024 09:30 AM AMBULATORY MEDICINE [facility] Aug 31, 2024 01:00 PM AMBULATORY - SURGERY [facility] Sep 21, 2024 01:30 PM AMBULATORY - MEDICINE [facility] Sep 22, 2024 11:00 AM AMBULATORY - MEDICINE [facility] Sep 29, 2024 12:30 PM AMBULATORY - MEDICINE [facility] Oct 02, 2024 09:30 AM AMBULATORY - MEDICINE [facility] Nov 20, 2024 10:30 AM AMBULATORY - SURGERY [facility] Nov 21, 2024 10:00 AM AMBULATORY - NONE [facility] Dec 11, 2024 10:30 AM AMBULATORY - MEDICINE [facility] Active, Pending, and Scheduled Orders This section includes a listing of several types of active, pending, and scheduled orders, including clinic medications orders, diagnostic test orders, procedure orders and consult orders; where the start date of the order is 45 days before the date of the Encounter or 45 days after the date of theEncounter. The data comes from all [facility]. Test Date/Time Test Type Test Details Facility Name Aug 02, 2024 12:00 AM Laboratory - Chemistry Order CBC BLOOD STAT SP [facility] Aug 02, 2024 12:00 AM Laboratory - Chemistry Order COMPREHENSIVE METABOLIC PANEL GREEN LI/HEP BLD/PLAS PLASMA SP [facility] Aug 17, 2024 03:47 PM Consult Order [facility] Cons Bedside [facility] Lab Results: +/- 30 days of [...] Aug 23, 2024 08:21 AM [facility] MAGNESIUM Specimen Type: PLASMA No comment entered. Ordering Provider: SILVIA REDDY Report Released Date/Time: Aug 22, 2024 11:26 AM Reporting Lab: [facility] [address] Performing Lab: [facility] [address] MAGNESIUM 1.8 mg/dL 1.6-2.6 Aug 23, 2024 08:21 AM [facility] CBC Specimen Type: BLOOD No comment entered. Ordering Provider: SILVIA REDDY Report Released Date/Time: Aug 22, 2024 11:19 AM Reporting Lab: [facility] [address] Performing Lab: [facility] [address] WBC 4.0 10*3/uL 3.6-11.2 RBC 3.65 10*6/uL [...] Aug 23, 2024 05:12 AM [facility] GLUCOSE,BLOOD-poct (STL) Specimen Type: BLOOD Comment: Test Performed by: [id number] Meter #: [id number] Ordering Provider: SILVIA REDDY Report Released Date/Time: Aug 23, 2024 05:23 AM Reporting Lab: [facility] [address] Performing Lab: [facility] [address] GLUCOSE,BLOOD- poct (STL) 99 mg/dL 72-99 Aug 23, 2024 02:45 AM [facility] OCCULT BLOOD FIT X1 SCREEN Specimen Type: FECES No comment entered. Ordering Provider: SILVIA REDDY Report Released Date/Time: Aug 22, 2024 11:23 AM Reporting Lab: [address] [address] Performing Lab: [address] [address] OCCULT BLOOD (FIT) #1 OF 1 Negative Negative Aug 22, 2024 07:30 PM [facility] OCCULT BLOOD FIT X1 SCREEN Specimen Type: FECES No comment entered. Ordering Provider: SILVIA REDDY Report Released Date/Time: Aug 22, 2024 11:23 AM Reporting Lab: [address] [address] Performing Lab: [address] [address] OCCULT BLOOD (FIT) #1 OF 1 Negative Negative Aug 22, 2024 06:15 PM [facility] OCCULT BLOOD FIT X1 SCREEN Specimen Type: FECES No comment entered. Ordering Provider: SILVIA REDDY Report Released Date/Time: Aug 22, 2024 11:23 AM Reporting Lab: [address] [address] Performing Lab: [facility] [address] [facility] [address] OCCULT BLOOD (FIT) #1 OF 1 Negative Negative Aug 22, 2024 04:24 PM [facility] GLUCOSE,BLOOD-poct (STL) Specimen Type: BLOOD Comment: Test Performed by: [id number] Meter #: [id number] Ordering Provider: SILVIA REDDY Report Released Date/Time: Aug 22, 2024 04:36 PM Reporting Lab: [facility] [address] Performing Lab: [facility] [address] GLUCOSE,BLOOD- poct (STL) 176 mg/dL H -Aug 22, 2024 04:23 PM [facility] GLUCOSE,BLOOD-poct (STL) Specimen Type: BLOOD Comment: Test Performed by: [id number] Meter #: [id number] Ordering Provider: SILVIA REDDY Report Released Date/Time: Aug 22, 2024 04:36 PM Reporting Lab: [facility] [address] Performing Lab: [facility] [address] GLUCOSE,BLOOD- poct (STL) 221 mg/dL H 72-Aug 22, 2024 11:15 AM [facility] GLUCOSE,BLOOD-poct (STL) Specimen Type: BLOOD Comment: Test Performed by: [id number] Meter #: [id number] Ordering Provider: SILVIA REDDY Report Released Date/Time: Aug 22, 2024 11:27 AM Reporting Lab: [facility] [address] Performing Lab: [facility] [address] GLUCOSE,BLOOD- poct (STL) 140 mg/dL H 72-Aug 22, 2024 08:03 AM [facility] FERRITIN Specimen Type: SERUM No comment entered. Ordering Provider: JUDIT PERKINS Report Released Date/Time: Aug 18, 2024 11:01 AM Reporting Lab: [facility] [address] [facility] [address] Performing Lab: [facility] [address] [facility] [address] FERRITIN 79.50 ng/mL 22-275 Aug 22, 2024 08:03 AM [facility] IRON/TIBC PROFILE Specimen Type: SERUM No comment entered. Ordering Provider: JUDIT PERKINS Report Released Date/Time: Aug 18, 2024 11:01 AM Reporting Lab: [address] [address] Performing Lab: [address] [address] TIBC 283 ug/dL 250-450 TRANSFERRIN 226 mg/dL 163-344 IRON SATURATION 7 L 20-50 IRON 19 ug/dL L 65-175 Aug 22, 2024 08:03 AM [facility] B12 Specimen Type: SERUM No comment entered. Ordering Provider: JUDIT PERKINS Report Released Date/Time: Aug 18, 2024 11:01 AM Reporting Lab: [facility] [address] Performing Lab: [facility] [facility] [address] B12 631 pg/mL 213-816 Aug 22, 2024 08:03 AM [facility] COMPREHENSIVE METABOLIC PANEL Specimen Type: PLASMA Comment: No hemolysis noted. Ordering Provider: SILVIA REDDY Report Released Date/Time: Aug 17, 2024 01:18 PM Reporting Lab: [facility] [address] [facility] [address] Performing Lab: [address] [address] CREATININE 0.80 mg/dL 0.7-1.3 UREA NITROGEN 9.7 [...] Reporting Lab: [facility] [address] Performing Lab: [facility] [address] WBC 3.5 10*3/uL L 3.6-11.2 RBC 3.23 [...] Aug 22, 2024 05:03 AM [facility] GLUCOSE,BLOOD-poct (STL) Specimen Type: BLOOD Comment: Test Performed by: [id number] Meter #: [id number] Ordering Provider: SILVIA REDDY Report Released Date/Time: Aug 22, 2024 06:17 AM Reporting Lab: [facility] [facility] [address] Performing Lab: [facility] [facility] [address] GLUCOSE,BLOOD- poct (STL) 170 mg/dL H 72-Aug 21, 2024 04:32 PM [facility] GLUCOSE,BLOOD-poct (STL) Specimen Type: BLOOD Comment: Test Performed by: [id number] Meter #: [id number] Ordering Provider: SILVIA REDDY Report Released Date/Time: Aug 21, 2024 04:49 PM Reporting Lab: [facility] [address] Performing Lab: [facility] [facility] [address] GLUCOSE,BLOOD- poct (STL) 169 mg/dL H -99 Aug 21, 2024 11:53 AM [facility] GLUCOSE,BLOOD-poct (STL) Specimen Type: BLOOD Comment: Test Performed by: [id number] Meter #: [id number] Ordering Provider: SILVIA REDDY Report Released Date/Time: Aug 21, 2024 12:11 PM Reporting Lab: [facility] [facility] [address] Performing Lab: [facility] [address] GLUCOSE,BLOOD- poct (STL) 149 mg/dL H 72-99 Aug 21, 2024 05:10 AM [facility] GLUCOSE,BLOOD-poct (STL) Specimen Type: BLOOD Comment: Test Performed by: [id number] Meter #: [id number] Ordering Provider: SILVIA REDDY Report Released Date/Time: Aug 21, 2024 05:27 AM Reporting Lab: [facility] [place] [address] Performing Lab: [facility] [address] [place] [id number] GLUCOSE,BLOOD- poct (STL) 118 mg/dL H 72-99 Aug 20, 2024 04:38 PM [facility] GLUCOSE,BLOOD-poct (STL) Specimen Type: BLOOD Comment: Test Performed by: [id number] Meter #: [id number] Ordering Provider: SILVIA REDDY Report Released Date/Time: Aug 21, 2024 01:55 AM Reporting Lab: [facility] [address] [place] [address] Performing Lab: [facility] [place] [address] GLUCOSE,BLOOD- poct (STL) 169 mg/dL H 72-Aug 20, 2024 04:36 PM [facility] GLUCOSE,BLOOD-poct (STL) Specimen Type: BLOOD Comment: Test Performed by: [id number] Meter #: [id number] Ordering Provider: SILVIA REDDY Report Released Date/Time: Aug 21, 2024 01:55 AM Reporting Lab: [facility] [place] [address] Performing Lab: [facility] [place] [address] GLUCOSE,BLOOD- poct (STL) 395 mg/dL H 72-99 Aug 20, 2024 11:45 AM [facility] GLUCOSE,BLOOD-poct (STL) Specimen Type: BLOOD Comment: Test Performed by: [id number] Meter #: [id number] Ordering Provider: SILVIA REDDY Report Released Date/Time: Aug 20, 2024 11:56 AM Reporting Lab: [facility] [address] Performing Lab: [facility] [facility] [address] GLUCOSE,BLOOD- poct (STL) 169 mg/dL H 72-Aug 20, 2024 05:06 AM [facility] GLUCOSE,BLOOD-poct (STL) Specimen Type: BLOOD Comment: Test Performed by: [id number] Meter #: [id number] Ordering Provider: SILVIA REDDY Report Released Date/Time: Aug 20, 2024 06:05 AM Reporting Lab: [facility] [facility] [address] Performing Lab: [facility] [facility] [address] GLUCOSE,BLOOD- poct (STL) 115 mg/dL H 72-Aug 19, 2024 04:23 PM [facility] GLUCOSE,BLOOD-poct (STL) Specimen Type: BLOOD Comment: Test Performed by: [id number] Meter #: [id number] Ordering Provider: SILVIA REDDY Report Released Date/Time: Aug 19, 2024 05:54 PM Reporting Lab: [facility] [facility] [address] Performing Lab: [facility] [facility] [address] GLUCOSE,BLOOD- poct (STL) 137 mg/dL H 72-99 Aug 19, 2024 11:28 AM [facility] GLUCOSE,BLOOD-poct (STL) Specimen Type: BLOOD Comment: Test Performed by: [id number] Meter #: [id number] Ordering Provider: SILVIA REDDY Report Released Date/Time: Aug 19, 2024 11:51 AM Reporting Lab: [facility] [facility] [address] Performing Lab: [facility] [facility] [address] GLUCOSE,BLOOD- poct (STL) 190 mg/dL H 72-99 Aug 19, 2024 05:21 AM [facility] GLUCOSE,BLOOD-poct (STL) Specimen Type: BLOOD Comment: Test Performed by: [id number] Meter #: [id number] Ordering Provider: SILVIA REDDY Report Released Date/Time: Aug 19, 2024 05:56 AM Reporting Lab: [facility] [facility] [address] Performing Lab: [facility] [facility] [address] GLUCOSE,BLOOD- poct (STL) 130 mg/dL H Aug 18, 2024 04:49 PM [facility] GLUCOSE,BLOOD-poct (STL) Specimen Type: BLOOD Comment: Test Performed by: [id number] Meter #: [id number] Ordering Provider: SILVIA REDDY Report Released Date/Time: Aug 18, 2024 05:01 PM Reporting Lab: [facility] [address] Performing Lab: [facility] [facility] [address] GLUCOSE,BLOOD- poct (STL) 129 mg/dL H Aug 18, 2024 11:23 AM [facility] GLUCOSE,BLOOD-poct (STL) Specimen Type: BLOOD Comment: Test Performed by: [id number] Meter #: [id number] Ordering Provider: SILVIA REDDY Report Released Date/Time: Aug 18, 2024 11:41 AM Reporting Lab: [facility] [facility] [address] Performing Lab: [facility] [facility] [address] GLUCOSE,BLOOD- poct (STL) 180 mg/dL H Aug 18, 2024 05:08 AM [facility] GLUCOSE,BLOOD-poct (STL) Specimen Type: BLOOD Comment: Test Performed by: [id number] Meter #: [id number] Ordering Provider: SILVIA REDDY Report Released Date/Time: Aug 18, 2024 05:31 AM Reporting Lab: [facility] [place] [address] Performing Lab: [facility] [facility] [address] GLUCOSE,BLOOD- poct (STL) 127 mg/dL H -Aug 17, 2024 07:32 PM [facility] GLUCOSE,BLOOD-poct (STL) Specimen Type: BLOOD Comment: Test Performed by: [id number] Meter #: [id number] Ordering Provider: SILVIA REDDY Report Released Date/Time: Aug 17, 2024 07:59 PM Reporting Lab: [facility] [place] [address] Performing Lab: [facility] [place] [address] GLUCOSE,BLOOD- poct (STL) 154 mg/dL H -Aug 17, 2024 04:24 PM [facility] GLUCOSE,BLOOD-poct (STL) Specimen Type: BLOOD Comment: Test Performed by: [id number] Meter #: [id number] Ordering Provider: SILVIA REDDY Report Released Date/Time: Aug 17, 2024 04:35 PM Reporting Lab: [facility] [place] [address] Performing Lab: [facility] [place] [address] GLUCOSE,BLOOD- poct (STL) 178 mg/dL H -Aug 17, 2024 05:09 AM [facility] GLUCOSE,BLOOD-poct (STL) Specimen Type: BLOOD Comment: Test Performed by: [id number] Meter #: [id number] Ordering Provider: SILVIA REDDY Report Released Date/Time: Aug 17, 2024 05:54 AM Reporting Lab: [facility] [address] Performing Lab: [facility] [facility] [address] GLUCOSE,BLOOD- poct (STL) 124 mg/dL H 72-Aug 16, 2024 07:40 PM [facility] GLUCOSE,BLOOD-poct (STL) Specimen Type: BLOOD Comment: Test Performed by: [id number] Meter #: [id number] Ordering Provider: SILVIA REDDY Report Released Date/Time: Aug 16, 2024 08:28 PM Reporting Lab: [facility] [facility] [address] Performing Lab: [facility] [facility] [address] GLUCOSE,BLOOD- poct (STL) 144 mg/dL H -Aug 16, 2024 04:19 PM [facility] GLUCOSE,BLOOD-poct (STL) Specimen Type: BLOOD Comment: Test Performed by: [id number] Meter #: [id number] Ordering Provider: SILVIA REDDY Report Released Date/Time: Aug 16, 2024 04:45 PM Reporting Lab: [facility] [facility] [address] Performing Lab: [facility] [facility] [address] GLUCOSE,BLOOD- poct (STL) 138 mg/dL H 72-Aug 16, 2024 11:52 AM [facility] GLUCOSE,BLOOD-poct (STL) Specimen Type: BLOOD Comment: Test Performed by: [id number] Meter #: [id number] Ordering Provider: SILVIA REDDY Report Released Date/Time: Aug 16, 2024 12:04 PM Reporting Lab: [facility] [facility] [address] Performing Lab: [facility] [facility] [address] GLUCOSE,BLOOD- poct (STL) 135 mg/dL H 72-99 Aug 16, 2024 05:24 AM [facility] GLUCOSE,BLOOD-poct (STL) Specimen Type: BLOOD Comment: Test Performed by: [id number] Meter #: [id number] Ordering Provider: SILVIA REDDY Report Released Date/Time: Aug 16, 2024 05:38 AM Reporting Lab: [facility] [facility] [address] Performing Lab: [facility] [facility] [address] GLUCOSE,BLOOD- poct (STL) 151 mg/dL H Aug 15, 2024 07:31 PM [facility] GLUCOSE,BLOOD-poct (STL) Specimen Type: BLOOD Comment: Test Performed by: [id number] Meter #: [id number] Ordering Provider: SILVIA REDDY Report Released Date/Time: Aug 15, 2024 08:07 PM Reporting Lab: [facility] [address] Performing Lab: [facility] [address] GLUCOSE,BLOOD- poct (STL) 173 mg/dL H Aug 15, 2024 04:18 PM [facility] GLUCOSE,BLOOD-poct (STL) Specimen Type: BLOOD Comment: Test Performed by: [id number] Meter #: [id number] Ordering Provider: SILVIA REDDY Report Released Date/Time: Aug 15, 2024 04:59 PM Reporting Lab: [facility] [address] Performing Lab: [facility] [facility] [address] GLUCOSE,BLOOD- poct (STL) 136 mg/dL H Aug 15, 2024 04:16 PM [facility] GLUCOSE,BLOOD-poct (STL) Specimen Type: BLOOD Comment: Test Performed by: [id number] Meter #: [id number] Ordering Provider: SILVIA REDDY Report Released Date/Time: Aug 15, 2024 04:59 PM Reporting Lab: [facility] [place] [address] Performing Lab: [facility] [facility] [address] GLUCOSE,BLOOD- poct (STL) 194 mg/dL H 72-Aug 15, 2024 11:39 AM [facility] GLUCOSE,BLOOD-poct (STL) Specimen Type: BLOOD Comment: Test Performed by: [id number] Meter #: [id number] Ordering Provider: SILVIA REDDY Report Released Date/Time: Aug 15, 2024 12:00 PM Reporting Lab: [facility] [place] [address] Performing Lab: [facility] [place] [address] GLUCOSE,BLOOD- poct (STL) 127 mg/dL H -Aug 15, 2024 05:07 AM [facility] GLUCOSE,BLOOD-poct (STL) Specimen Type: BLOOD Comment: Test Performed by: [id number] Meter #: [id number] Ordering Provider: SILVIA REDDY Report Released Date/Time: Aug 15, 2024 06:14 AM Reporting Lab: [facility] [place] [address] Performing Lab: [facility] [place] [address] GLUCOSE,BLOOD- poct (STL) 151 mg/dL H -Aug 14, 2024 04:22 PM [facility] GLUCOSE,BLOOD-poct (STL) Specimen Type: BLOOD Comment: Test Performed by: [id number] Meter #: [id number] Ordering Provider: SILVIA REDDY Report Released Date/Time: Aug 14, 2024 04:52 PM Reporting Lab: [facility] [address] Performing Lab: [facility] [address] GLUCOSE,BLOOD- poct (STL) 129 mg/dL H 72-99 Aug 14, 2024 11:21 AM [facility] GLUCOSE,BLOOD-poct (STL) Specimen Type: BLOOD Comment: Test Performed by: [id number] Meter #: [id number] Ordering Provider: SILVIA REDDY Report Released Date/Time: Aug 14, 2024 11:37 AM Reporting Lab: [facility] [address] Performing Lab: [facility] [address] GLUCOSE,BLOOD- poct (STL) 135 mg/dL H 72-Aug 14, 2024 06:59 AM [facility] QUANTIFERON-TB,4 TUBE Specimen Type: BLOOD Comment: normalcy [...] For additional information, please refer to http://education. Atterocor/faq/SOP178 (This link is being provided for information/ educational purposes only.) Test Performed by [employer], [facility], [address] [place] [address] Tommie Garcia M.D., Ph.D., Director of Laboratories , [facility] [id number] Ordering Provider: SILVIA REDDY Report Released Date/Time: Aug 11, 2024 03:58 PM Reporting Lab: [facility] [address] [facility] [address] Performing Lab: [facility] [id number] [place] [address] .NIL - QUANTIFERON 0.04 [IU]/mL .MITOGEN-NIL 0.39 [IU]/mL .QUANTIFERON INDETERMINATE NEGATIVE .TB1-NIL <0.00 [IU]/mL .TB2-NIL <0.00 [IU]/mL Aug 14, 2024 06:59 AM [facility] MAGNESIUM Specimen Type: PLASMA Comment: No hemolysis noted. Ordering Provider: SILVIA REDDY Report Released Date/Time: Aug 11, 2024 03:58 PM Reporting Lab: [facility] [place] [id number] Performing Lab: [facility] [facility] [address] MAGNESIUM 1.9 mg/dL 1.6-2.6 Aug 14, 2024 06:59 AM [facility] B12 Specimen Type: SERUM No comment entered. Ordering Provider: SILVIA REDDY Report Released Date/Time: Aug 11, 2024 03:58 PM Reporting Lab: [facility] [id number] Performing Lab: [facility] [id number] B12 757 pg/mL 213-816 Aug 14, 2024 06:59 AM [facility] FOLATE (STL-MA) Specimen Type: SERUM No comment entered. Ordering Provider: SILVIA REDDY Report Released Date/Time: Aug 11, 2024 03:58 PM Reporting Lab: [facility] [id number] Performing Lab: [facility] [id number] FOLATE (STL-MA) 6.8 ng/mL L 7-20 Aug 14, 2024 06:59 AM [facility] VITAMIN D, 25-HYDROXY Specimen Type: SERUM No comment entered. Ordering Provider: SILVIA REDDY Report Released Date/Time: Aug 11, 2024 03:58 PM Reporting Lab: [facility] [address] Performing Lab: [facility] [address] VITAMIN D, 25-HYDROXY 8.9 ng/mL L 30-96 Aug 14, 2024 06:59 AM [facility] COMPREHENSIVE METABOLIC PANEL Specimen Type: PLASMA Comment: No hemolysis noted. Ordering Provider: SILVIA REDDY Report Released Date/Time: Aug 11, 2024 03:58 PM Reporting Lab: [facility] [phone] Performing Lab: [facility] [facility] [address] CREATININE 0.75 mg/dL 0.70-1.30 UREA NITROGEN 13.6 [...] 95.88 >60 Aug 14, 2024 06:59 AM [facility] CBC Specimen Type: BLOOD No comment entered. Ordering Provider: SILVIA REDDY Report Released Date/Time: Aug 11, 2024 03:58 PM Reporting Lab: [facility] [address] Performing Lab: [facility] [address] WBC 4.1 10*3/uL 3.6-11.2 RBC 3.20 10*6/uL [...] Aug 14, 2024 05:08 AM [facility] GLUCOSE,BLOOD-poct (STL) Specimen Type: BLOOD Comment: Test Performed by: [id number] Meter #: [id number] Ordering Provider: SILVIA REDDY Report Released Date/Time: Aug 14, 2024 05:52 AM Reporting Lab: [facility] [facility] [id number] Performing Lab: [facility] [address] GLUCOSE,BLOOD- poct (STL) 135 mg/dL H 72-99 Aug 13, 2024 04:27 PM [facility] GLUCOSE,BLOOD-poct (STL) Specimen Type: BLOOD Comment: Test Performed by: [id number] Meter #: [id number] Ordering Provider: SILVIA REDDY Report Released Date/Time: Aug 13, 2024 04:41 PM Reporting Lab: [facility] [facility] [address] Performing Lab: [facility] [address] GLUCOSE,BLOOD- poct (STL) 181 mg/dL H -Aug 13, 2024 11:33 AM [facility] GLUCOSE,BLOOD-poct (STL) Specimen Type: BLOOD Comment: Test Performed by: [id number] Meter #: [id number] Ordering Provider: SILVIA REDDY Report Released Date/Time: Aug 13, 2024 03:55 PM Reporting Lab: [facility] [address] Performing Lab: [facility] [place] [address] GLUCOSE,BLOOD- poct (STL) 140 mg/dL H Aug 13, 2024 05:54 AM [facility] GLUCOSE,BLOOD-poct (STL) Specimen Type: BLOOD Comment: Test Performed by: [id number] Meter #: [id number] Ordering Provider: SILVIA REDDY Report Released Date/Time: Aug 13, 2024 06:20 AM Reporting Lab: [facility] [facility] [address] Performing Lab: [facility] [facility] [address] GLUCOSE,BLOOD- poct (STL) 112 mg/dL H Aug 12, 2024 04:35 PM [facility] GLUCOSE,BLOOD-poct (STL) Specimen Type: BLOOD Comment: Test Performed by: [id number] Meter #: [id number] Ordering Provider: SILVIA REDDY Report Released Date/Time: Aug 12, 2024 04:47 PM Reporting Lab: [facility] [facility] [address] Performing Lab: [facility] [facility] [address] GLUCOSE,BLOOD- poct (STL) 128 mg/dL H 72-99 Aug 12, 2024 11:26 AM [facility] GLUCOSE,BLOOD-poct (STL) Specimen Type: BLOOD Comment: Test Performed by: [id number] Meter #: [id number] Ordering Provider: SILVIA REDDY Report Released Date/Time: Aug 12, 2024 11:45 AM Reporting Lab: [facility] [facility] [address] Performing Lab: [facility] [place] [address] GLUCOSE,BLOOD- poct (STL) 188 mg/dL H -Aug 12, 2024 06:13 AM [facility] GLUCOSE,BLOOD-poct (STL) Specimen Type: BLOOD Comment: Test Performed by: [id number] Meter #: [id number] Ordering Provider: SILVIA REDDY Report Released Date/Time: Aug 12, 2024 06:25 AM Reporting Lab: [facility] [facility] [address] Performing Lab: [facility] [facility] [address] GLUCOSE,BLOOD- poct (STL) 116 mg/dL H 72-99 Aug 11, 2024 04:10 PM [facility] GLUCOSE,BLOOD-poct (STL) Specimen Type: BLOOD Comment: Test Performed by: [id number] Meter #: [id number] Ordering Provider: SILVIA REDDY Report Released Date/Time: Aug 11, 2024 04:27 PM Reporting Lab: [facility] [place] [address] Performing Lab: [facility] [place] [address] GLUCOSE,BLOOD- poct (STL) 184 mg/dL H 72-99 Aug 11, 2024 01:44 PM [facility] MRSA SURVL NARES DNA Specimen Type: NARES [...] Aug 11, 2024 02:03 PM Reporting Lab: [address] [phone] Performing Lab: [address] [address] MRSA SURVL NARES DNA Negative Negative Vital Signs: All taken on the encounter date This section contains inpatient and outpatient Vital Signs collected on the date of the Encounter. Date/Time Temperature Pulse Blood Pressure Respiratory Rate SP02 Pain Height Weight Body Mass Index Source Aug 22, 2024 07:17 PM 98.1 74 117/73 20 95 [facility] Aug 22, 2024 10:30 AM 98.1 55 104/61 18 96 [facility] Aug 22, 2024 05:18 AM 97.9 76 120/77 20 95 [facility] Advance Directives: [...] ADVANCE DIRECTIVE DISCUSSION ERICK BARDALES [facility]
--- OUTSIDE RECORDS SUMMARY | 2024-11-17 04:09 | XMS_ITS ---
[place] DAILY HOSPITALIZATION DATA [facility] Encounter Summary Created on: November 16, 2024 CHET WLAKER : 1950 Sex: Male Author Name [facility] [place] [facility] [place] [facility] [place] Address [address] [place] [address] Care Team Providers Care Crm Developer Name Role Phone MANUEL BAIRD Primary [...] PART A Apr 08, 2017 PART A [id number] [phone] ASHLEY WALKER PATIENT Selected Encounter This section includes the information on record at [place] for the Encounter. Date/Time Encounter Type Encounter Description Reason Pro vider Source Aug 22, 2024 03:22 PM Inpatient Visit DAILY HOSPITALIZATION DATA [facility] Encounter Template Text not used by [place] [...] 20 appointments. The data comes from all [facility]. Appointment Date/Time Appointment Type Appointme nt Facility Name Aug 24, 2024 10:00 AM AMBULATORY - MEDICINE [facility] Aug 24, 2024 10:30 AM AMBULATORY - MEDICINE [facility] Aug 30, 2024 09:30 AM AMBULATORY MEDICINE [facility] Aug 31, 2024 01:00 PM AMBULATORY - SURGERY [facility] Sep 21, 2024 01:30 PM AMBULATORY - MEDICINE [facility] Sep 22, 2024 11:00 AM AMBULATORY - MEDICINE [facility] Sep 29, 2024 12:30 PM AMBULATORY - MEDICINE [facility] Oct 02, 2024 09:30 AM AMBULATORY - MEDICINE [facility] Nov 20, 2024 10:30 AM AMBULATORY - SUR[facility]ERY [facility] Nov 21, 2024 10:00 AM AMBULATORY - NONE [facility] Dec 11, 2024 10:30 AM AMBULATORY - MEDICINE [facility] Active, Pending, and Scheduled Orders This section includes a listing of several types of active, pending, and scheduled orders, including clinic medications orders, diagnostic test orders, procedure orders and consult orders; where the start date of the order is 45 days before the date of the Encounter or 45 days after the date of theEncounter. The data comes from all [facility]. Test Date/Time Test Type Test Details Facility Name Aug 02, 2024 12:00 AM Laboratory - Chemistry Order CBC BLOOD STAT [facility] Aug 02, 2024 12:00 AM Laboratory - Chemistry Order COMPREHENSIVE METABOLIC PANEL GREEN LI/HEP BLD/PLAS PLASMA SP [facility] Aug 17, 2024 03:47 PM Consult Order [facility] Cons Bedside [facility] Lab Results: +/- 30 days of [...] Range Comment Aug 23, 2024 08:21 AM [facility] MAGNESIUM Specimen Type: PLASMA No comment entered. Ordering Provider: SILVIA REDDY Report Released Date/Time: Aug 22, 2024 11:26 AM Reporting Lab: [facility] [address] Performing Lab: [facility] [address] MAGNESIUM 1.8 mg/dL 1.6-2.6 Aug 23, 2024 08:21 AM [facility] CBC Specimen Type: BLOOD No comment entered. Ordering Provider: SILVIA REDDY Report Released Date/Time: Aug 22, 2024 11:19 AM Reporting Lab: [facility] [address] Performing Lab: [facility] [address] WBC 4.0 10*3/uL 3.6-11.2 RBC 3.65 10*6/uL [...] 10*3/uL 0.00-0.20 Aug 23, 2024 05:12 AM [facility] GLUCOSE,BLOOD-poct (STL) Specimen Type: BLOOD Comment: Test Performed by: [id number] Meter #: [id number] Ordering Provider: SILVIA REDDY Report Released Date/Time: Aug 23, 2024 05:23 AM Reporting Lab: [facility] [address] Performing Lab: [facility] #[facility] [address] GLUCOSE,BLOOD- poct (STL) 99 mg/dL 72-99 Aug 23, 2024 02:45 AM [facility] OCCULT BLOOD FIT X1 SCREEN Specimen Type: FECES No comment entered. Ordering Provider: SILVIA REDDY Report Released Date/Time: Aug 22, 2024 11:23 AM Reporting Lab: [address] [address] Performing Lab: [address] [address] OCCULT BLOOD (FIT) #1 OF 1 Negative Negative Aug 22, 2024 07:30 PM [facility] OCCULT BLOOD FIT X1 SCREEN Specimen Type: FECES No comment entered. Ordering Provider: SILVIA REDDY Report Released Date/Time: Aug 22, 2024 11:23 AM Reporting Lab: [address] [address] Performing Lab: [address] [address] OCCULT BLOOD (FIT) #1 OF 1 Negative Negative Aug 22, 2024 06:15 PM [facility] OCCULT BLOOD FIT X1 SCREEN Specimen Type: FECES No comment entered. Ordering Provider: SILVIA REDDY Report Released Date/Time: Aug 22, 2024 11:23 AM Reporting Lab: [address] [address] Performing Lab: [facility] [address] [facility] [address] OCCULT BLOOD (FIT) #1 OF 1 Negative Negative Aug 22, 2024 04:24 PM [facility] GLUCOSE,BLOOD-poct (STL) Specimen Type: BLOOD Comment: Test Performed by: [id number] Meter #: [id number] Ordering Provider: SILVIA REDDY Report Released Date/Time: Aug 22, 2024 04:36 PM Reporting Lab: [facility] [address] Performing Lab: [facility] #[facility] [address] GLUCOSE,BLOOD- poct (STL) 176 mg/dL H -Aug 22, 2024 04:23 PM [facility] GLUCOSE,BLOOD-poct (STL) Specimen Type: BLOOD Comment: Test Performed by: [id number] Meter #: [id number] Ordering Provider: SILVIA REDDY Report Released Date/Time: Aug 22, 2024 04:36 PM Reporting Lab: [facility] [address] Performing Lab: [facility] [address] GLUCOSE,BLOOD- poct (STL) 221 mg/dL H 72-Aug 22, 2024 11:15 AM [facility] GLUCOSE,BLOOD-poct (STL) Specimen Type: BLOOD Comment: Test Performed by: [id number] Meter #: [id number] Ordering Provider: SILVIA REDDY Report Released Date/Time: Aug 22, 2024 11:27 AM Reporting Lab: [facility] [address] Performing Lab: [facility] [address] GLUCOSE,BLOOD- poct (STL) 140 mg/dL H 72-Aug 22, 2024 08:03 AM [facility] FERRITIN Specimen Type: SERUM No comment entered. Ordering Provider: JUDIT PERKINS Report Released Date/Time: Aug 18, 2024 11:01 AM Reporting Lab: [facility] [address] [facility] [address] Performing Lab: [facility] [address] [facility] [address] FERRITIN 79.50 ng/mL 22-275 Aug 22, 2024 08:03 AM [facility] CBC Specimen Type: BLOOD No comment entered. Ordering Provider: SILVIA REDDY Report Released Date/Time: Aug 17, 2024 01:18 PM Reporting Lab: [facility] [address] Performing Lab: [facility] [address] WBC 3.5 10*3/uL L 3.6-11.2 RBC 3.23 [...] NRBC% 0 Aug 22, 2024 08:03 AM [facility] COMPREHENSIVE METABOLIC PANEL Specimen Type: PLASMA Comment: No hemolysis noted. Ordering Provider: SILVIA REDDY Report Released Date/Time: Aug 17, 2024 01:18 PM Reporting Lab: [facility] [address] [place] [phone] Performing Lab: [address] [address] CREATININE 0.80 mg/dL 0.7-1.3 UREA NITROGEN 9.7 [...] >60 Aug 22, 2024 08:03 AM [facility] IRON/TIBC PROFILE Specimen Type: SERUM No comment entered. Ordering Provider: JUDIT PERKINS Report Released Date/Time: Aug 18, 2024 11:01 AM Reporting Lab: [facility] [address] [facility] [address] Performing Lab: [address] [address] TIBC 283 ug/dL 250-450 TRANSFERRIN 226 mg/dL 163-344 IRON SATURATION 7 L 20-50 IRON 19 ug/dL L 65-175 Aug 22, 2024 08:03 AM [facility] B12 Specimen Type: SERUM No comment entered. Ordering Provider: JUDIT PERKINS Report Released Date/Time: Aug 18, 2024 11:01 AM Reporting Lab: [facility] [address] Performing Lab: [facility] [address] B12 631 pg/mL 213-816 Aug 22, 2024 05:03 AM [facility] GLUCOSE,BLOOD-poct (STL) Specimen Type: BLOOD Comment: Test Performed by: [id number] Meter #: [id number] Ordering Provider: SILVIA REDDY Report Released Date/Time: Aug 22, 2024 06:17 AM Reporting Lab: [facility] #[facility] [address] Performing Lab: [facility] #[facility] [address] GLUCOSE,BLOOD- poct (STL) 170 mg/dL H 72-Aug 21, 2024 04:32 PM [facility] GLUCOSE,BLOOD-poct (STL) Specimen Type: BLOOD Comment: Test Performed by: [id number] Meter #: [id number] Ordering Provider: SILVIA REDDY Report Released Date/Time: Aug 21, 2024 04:49 PM Reporting Lab: [facility] [address] Performing Lab: [facility] #[facility] [address] GLUCOSE,BLOOD- poct (STL) 169 mg/dL H 72-99 Aug 21, 2024 11:53 AM [facility] GLUCOSE,BLOOD-poct (STL) Specimen Type: BLOOD Comment: Test Performed by: [id number] Meter #: [id number] Ordering Provider: SILVIA REDDY Report Released Date/Time: Aug 21, 2024 12:11 PM Reporting Lab: [facility] #[facility] [address] Performing Lab: [facility] #[facility] [address] GLUCOSE,BLOOD- poct (STL) 149 mg/dL H 72-99 Aug 21, 2024 05:10 AM [facility] GLUCOSE,BLOOD-poct (STL) Specimen Type: BLOOD Comment: Test Performed by: [id number] Meter #: [id number] Ordering Provider: SILVIA REDDY Report Released Date/Time: Aug 21, 2024 05:27 AM Reporting Lab: [facility] [place] [address] Performing Lab: [facility] [address] [place] [phone] GLUCOSE,BLOOD- poct (STL) 118 mg/dL H 72-99 Aug 20, 2024 04:38 PM [facility] GLUCOSE,BLOOD-poct (STL) Specimen Type: BLOOD Comment: Test Performed by: [id number] Meter #: [id number] Ordering Provider: SILVIA REDDY Report Released Date/Time: Aug 21, 2024 01:55 AM Reporting Lab: [facility] #[address] [place] [address] Performing Lab: [facility] [address] [place] [address] GLUCOSE,BLOOD- poct (STL) 169 mg/dL H 72-Aug 20, 2024 04:36 PM [facility] GLUCOSE,BLOOD-poct (STL) Specimen Type: BLOOD Comment: Test Performed by: [id number] Meter #: [id number] Ordering Provider: SILVIA REDDY Report Released Date/Time: Aug 21, 2024 01:55 AM Reporting Lab: [facility] [place] [address] Performing Lab: [facility] [place] [address] GLUCOSE,BLOOD- poct (STL) 395 mg/dL H 72-99 Aug 20, 2024 11:45 AM [facility] GLUCOSE,BLOOD-poct (STL) Specimen Type: BLOOD Comment: Test Performed by: [id number] Meter #: [id number] Ordering Provider: SILVIA REDDY Report Released Date/Time: Aug 20, 2024 11:56 AM Reporting Lab: [facility] [address] Performing Lab: [facility] #[facility] [address] GLUCOSE,BLOOD- poct (STL) 169 mg/dL H 72-Aug 20, 2024 05:06 AM [facility] GLUCOSE,BLOOD-poct (STL) Specimen Type: BLOOD Comment: Test Performed by: [id number] Meter #: [id number] Ordering Provider: SILVIA REDDY Report Released Date/Time: Aug 20, 2024 06:05 AM Reporting Lab: [facility] [address] Performing Lab: [facility] #[facility] [address] GLUCOSE,BLOOD- poct (STL) 115 mg/dL H 72-Aug 19, 2024 04:23 PM [facility] GLUCOSE,BLOOD-poct (STL) Specimen Type: BLOOD Comment: Test Performed by: [id number] Meter #: [id number] Ordering Provider: SILVIA REDDY Report Released Date/Time: Aug 19, 2024 05:54 PM Reporting Lab: [facility] [address] Performing Lab: [facility] #[facility] [address] GLUCOSE,BLOOD- poct (STL) 137 mg/dL H 72-99 Aug 19, 2024 11:28 AM [facility] GLUCOSE,BLOOD-poct (STL) Specimen Type: BLOOD Comment: Test Performed by: [id number] Meter #: [id number] Ordering Provider: SILVIA REDDY Report Released Date/Time: Aug 19, 2024 11:51 AM Reporting Lab: [facility] [address] Performing Lab: [facility] [address] GLUCOSE,BLOOD- poct (STL) 190 mg/dL H 72-99 Aug 19, 2024 05:21 AM [facility] GLUCOSE,BLOOD-poct (STL) Specimen Type: BLOOD Comment: Test Performed by: [id number] Meter #: [id number] Ordering Provider: SILVIA REDDY Report Released Date/Time: Aug 19, 2024 05:56 AM Reporting Lab: [facility] [address] Performing Lab: [facility] #[facility] [address] GLUCOSE,BLOOD- poct (STL) 130 mg/dL H Aug 18, 2024 04:49 PM [facility] GLUCOSE,BLOOD-poct (STL) Specimen Type: BLOOD Comment: Test Performed by: [id number] Meter #: [id number] Ordering Provider: SILVIA REDDY Report Released Date/Time: Aug 18, 2024 05:01 PM Reporting Lab: [facility] [address] Performing Lab: [facility] #[facility] [address] GLUCOSE,BLOOD- poct (STL) 129 mg/dL H Aug 18, 2024 11:23 AM [facility] GLUCOSE,BLOOD-poct (STL) Specimen Type: BLOOD Comment: Test Performed by: [id number] Meter #: [id number] Ordering Provider: SILVIA REDDY Report Released Date/Time: Aug 18, 2024 11:41 AM Reporting Lab: [facility] [address] Performing Lab: [facility] [address] GLUCOSE,BLOOD- poct (STL) 180 mg/dL H Aug 18, 2024 05:08 AM [facility] GLUCOSE,BLOOD-poct (STL) Specimen Type: BLOOD Comment: Test Performed by: [id number] Meter #: [id number] Ordering Provider: SILVIA REDDY Report Released Date/Time: Aug 18, 2024 05:31 AM Reporting Lab: [facility] [place] [address] Performing Lab: [facility] [address] GLUCOSE,BLOOD- poct (STL) 127 mg/dL H -Aug 17, 2024 07:32 PM [facility] GLUCOSE,BLOOD-poct (STL) Specimen Type: BLOOD Comment: Test Performed by: [id number] Meter #: [id number] Ordering Provider: SILVIA REDDY Report Released Date/Time: Aug 17, 2024 07:59 PM Reporting Lab: [facility] [place] [address] Performing Lab: [facility] [place] [address] GLUCOSE,BLOOD- poct (STL) 154 mg/dL H -Aug 17, 2024 04:24 PM [facility] GLUCOSE,BLOOD-poct (STL) Specimen Type: BLOOD Comment: Test Performed by: [id number] Meter #: [id number] Ordering Provider: SILVIA REDDY Report Released Date/Time: Aug 17, 2024 04:35 PM Reporting Lab: [facility] [place] [address] Performing Lab: [facility] [place] [address] GLUCOSE,BLOOD- poct (STL) 178 mg/dL H -Aug 17, 2024 05:09 AM [facility] GLUCOSE,BLOOD-poct (STL) Specimen Type: BLOOD Comment: Test Performed by: [id number] Meter #: [id number] Ordering Provider: SILVIA REDDY Report Released Date/Time: Aug 17, 2024 05:54 AM Reporting Lab: [facility] [address] Performing Lab: [facility] [address] GLUCOSE,BLOOD- poct (STL) 124 mg/dL H 72-Aug 16, 2024 07:40 PM [facility] GLUCOSE,BLOOD-poct (STL) Specimen Type: BLOOD Comment: Test Performed by: [id number] Meter #: [id number] Ordering Provider: SILVIA REDDY Report Released Date/Time: Aug 16, 2024 08:28 PM Reporting Lab: [facility] [address] Performing Lab: [facility] [address] GLUCOSE,BLOOD- poct (STL) 144 mg/dL H -Aug 16, 2024 04:19 PM [facility] GLUCOSE,BLOOD-poct (STL) Specimen Type: BLOOD Comment: Test Performed by: [id number] Meter #: [id number] Ordering Provider: SILVIA REDDY Report Released Date/Time: Aug 16, 2024 04:45 PM Reporting Lab: [facility] [address] Performing Lab: [facility] [address] GLUCOSE,BLOOD- poct (STL) 138 mg/dL H 72-Aug 16, 2024 11:52 AM [facility] GLUCOSE,BLOOD-poct (STL) Specimen Type: BLOOD Comment: Test Performed by: [id number] Meter #: [id number] Ordering Provider: SILVIA REDDY Report Released Date/Time: Aug 16, 2024 12:04 PM Reporting Lab: [facility] [address] Performing Lab: [facility] [address] GLUCOSE,BLOOD- poct (STL) 135 mg/dL H 72-99 Aug 16, 2024 05:24 AM [facility] GLUCOSE,BLOOD-poct (STL) Specimen Type: BLOOD Comment: Test Performed by: [id number] Meter #: [id number] Ordering Provider: SILVIA REDDY Report Released Date/Time: Aug 16, 2024 05:38 AM Reporting Lab: [facility] [address] Performing Lab: [facility] [address] GLUCOSE,BLOOD- poct (STL) 151 mg/dL H Aug 15, 2024 07:31 PM [facility] GLUCOSE,BLOOD-poct (STL) Specimen Type: BLOOD Comment: Test Performed by: [id number] Meter #: [id number] Ordering Provider: SILVIA REDDY Report Released Date/Time: Aug 15, 2024 08:07 PM Reporting Lab: [facility] [address] Performing Lab: [facility] [address] GLUCOSE,BLOOD- poct (STL) 173 mg/dL H Aug 15, 2024 04:18 PM [facility] GLUCOSE,BLOOD-poct (STL) Specimen Type: BLOOD Comment: Test Performed by: [id number] Meter #: [id number] Ordering Provider: SILVIA REDDY Report Released Date/Time: Aug 15, 2024 04:59 PM Reporting Lab: [facility] [address] Performing Lab: [facility] [address] GLUCOSE,BLOOD- poct (STL) 136 mg/dL H Aug 15, 2024 04:16 PM [facility] GLUCOSE,BLOOD-poct (STL) Specimen Type: BLOOD Comment: Test Performed by: [id number] Meter #: [id number] Ordering Provider: SILVIA REDDY Report Released Date/Time: Aug 15, 2024 04:59 PM Reporting Lab: [facility] [place] [address] Performing Lab: [facility] [address] GLUCOSE,BLOOD- poct (STL) 194 mg/dL H 72-Aug 15, 2024 11:39 AM [facility] GLUCOSE,BLOOD-poct (STL) Specimen Type: BLOOD Comment: Test Performed by: [id number] Meter #: [id number] Ordering Provider: SILVIA REDDY Report Released Date/Time: Aug 15, 2024 12:00 PM Reporting Lab: [facility] [place] [address] Performing Lab: [facility] [place] [address] GLUCOSE,BLOOD- poct (STL) 127 mg/dL H -Aug 15, 2024 05:07 AM [facility] GLUCOSE,BLOOD-poct (STL) Specimen Type: BLOOD Comment: Test Performed by: [id number] Meter #: [id number] Ordering Provider: SILVIA REDDY Report Released Date/Time: Aug 15, 2024 06:14 AM Reporting Lab: [facility] [place] [address] Performing Lab: [facility] [place] [address] GLUCOSE,BLOOD- poct (STL) 151 mg/dL H -Aug 14, 2024 04:22 PM [facility] GLUCOSE,BLOOD-poct (STL) Specimen Type: BLOOD Comment: Test Performed by: [id number] Meter #: [id number] Ordering Provider: SILVIA REDDY Report Released Date/Time: Aug 14, 2024 04:52 PM Reporting Lab: [facility] [address] Performing Lab: [facility] [address] GLUCOSE,BLOOD- poct (STL) 129 mg/dL H 72-99 Aug 14, 2024 11:21 AM [facility] GLUCOSE,BLOOD-poct (STL) Specimen Type: BLOOD Comment: Test Performed by: [id number] Meter #: [id number] Ordering Provider: SILVIA REDDY Report Released Date/Time: Aug 14, 2024 11:37 AM Reporting Lab: [facility] [address] Performing Lab: [facility] [address] GLUCOSE,BLOOD- poct (STL) 135 mg/dL H 72-Aug 14, 2024 06:59 AM [facility] QUANTIFERON-TB,4 TUBE Specimen Type: BLOOD [...] For additional information, please refer to http://education. [email or web address]faq/SBN154 (This link is being provided for information/ educational purposes only.) Test Performed by [employer], [employer] [facility] [employer], [address] [place] [address] Tommie Garcia M.D., Ph.D., Director of Laboratories , [facility] [id number] Ordering Provider: SILVIA REDDY Report Released Date/Time: Aug 11, 2024 03:58 PM Reporting Lab: [facility] [address] [facility] [address] Performing Lab: [facility] [id number] [place] [address] .NIL - QUANTIFERON 0.04 [IU]/mL .MITOGEN-NIL 0.39 [IU]/mL .QUANTIFERON INDETERMINATE NEGATIVE .TB1-NIL <0.00 [IU]/mL .TB2-NIL <0.00 [IU]/mL Aug 14, 2024 06:59 AM [facility] MAGNESIUM Specimen Type: PLASMA Comment: No hemolysis noted. Ordering Provider: SILVIA REDDY Report Released Date/Time: Aug 11, 2024 03:58 PM Reporting Lab: [facility] [id number] Performing Lab: [facility] [address] MAGNESIUM 1.9 mg/dL 1.6-2.6 Aug 14, 2024 06:59 AM [facility] B12 Specimen Type: SERUM No comment entered. Ordering Provider: SILVIA REDDY Report Released Date/Time: Aug 11, 2024 03:58 PM Reporting Lab: [facility] [address] Performing Lab: [facility] [address] B12 757 pg/mL [phone] Aug 14, 2024 06:59 AM [facility] COMPREHENSIVE METABOLIC PANEL Specimen Type: PLASMA Comment: No hemolysis noted. Ordering Provider: SILVIA REDDY Report Released Date/Time: Aug 11, 2024 03:58 PM Reporting Lab: [facility] [phone] Performing Lab: [facility] [facility] [address] CREATININE 0.75 mg/dL 0.70-1.30 UREA NITROGEN 13.6 [...] 14, 2024 06:59 AM [facility] CBC Specimen Type: BLOOD No comment entered. Ordering Provider: SILVIA REDDY Report Released Date/Time: Aug 11, 2024 03:58 PM Reporting Lab: [facility] [address] Performing Lab: [facility] [address] WBC 4.1 10*3/uL 3.6-11.2 RBC 3.20 10*6/uL [...] 10*3/uL 0.00-0.20 Aug 14, 2024 06:59 AM [facility] FOLATE ([facility]) Specimen Type: SERUM No comment entered. Ordering Provider: SILVIA REDDY Report Released Date/Time: Aug 11, 2024 03:58 PM Reporting Lab: [facility] [place] [address] Performing Lab: [facility] [place] [address] FOLATE ([facility]) 6.8 ng/mL L 7-20 Aug 14, 2024 06:59 AM [facility] VITAMIN D, 25-HYDROXY Specimen Type: SERUM No comment entered. Ordering Provider: SILVIA REDDY Report Released Date/Time: Aug 11, 2024 03:58 PM Reporting Lab: [facility] [place] [address] Performing Lab: [facility] [place] [address] VITAMIN D, 25-HYDROXY 8.9 ng/mL L 30-96 Aug 14, 2024 05:08 AM [facility] GLUCOSE,BLOOD-poct ([facility]) Specimen Type: BLOOD Comment: Test Performed by: [id number] Meter #: [id number] Ordering Provider: SILVIA REDDY Report Released Date/Time: Aug 14, 2024 05:52 AM Reporting Lab: [facility] [place] [address] Performing Lab: [facility] [place] [address] GLUCOSE,BLOOD- poct (L) 135 mg/dL H 72-99 Aug 13, 2024 04:27 PM [facility] GLUCOSE,BLOOD-poct (STL) Specimen Type: BLOOD Comment: Test Performed by: [id number] Meter #: [id number] Ordering Provider: SILVIA REDDY Report Released Date/Time: Aug 13, 2024 04:41 PM Reporting Lab: [facility] [address] Performing Lab: [facility] [address] GLUCOSE,BLOOD- poct (STL) 181 mg/dL H -Aug 13, 2024 11:33 AM [facility] GLUCOSE,BLOOD-poct (STL) Specimen Type: BLOOD Comment: Test Performed by: [id number] Meter #: [id number] Ordering Provider: SILVIA REDDY Report Released Date/Time: Aug 13, 2024 03:55 PM Reporting Lab: [facility] [address] Performing Lab: [facility] [place] [address] GLUCOSE,BLOOD- poct (STL) 140 mg/dL H Aug 13, 2024 05:54 AM [facility] GLUCOSE,BLOOD-poct (STL) Specimen Type: BLOOD Comment: Test Performed by: [id number] Meter #: [id number] Ordering Provider: SILVIA REDDY Report Released Date/Time: Aug 13, 2024 06:20 AM Reporting Lab: [facility] [address] Performing Lab: [facility] [address] GLUCOSE,BLOOD- poct (STL) 112 mg/dL H Aug 12, 2024 04:35 PM [facility] GLUCOSE,BLOOD-poct (STL) Specimen Type: BLOOD Comment: Test Performed by: [id number] Meter #: [id number] Ordering Provider: SILVIA REDDY Report Released Date/Time: Aug 12, 2024 04:47 PM Reporting Lab: [facility] [address] Performing Lab: [facility] [address] GLUCOSE,BLOOD- poct (STL) 128 mg/dL H 72-99 Aug 12, 2024 11:26 AM [facility] GLUCOSE,BLOOD-poct (STL) Specimen Type: BLOOD Comment: Test Performed by: [id number] Meter #: [id number] Ordering Provider: SILVIA REDDY Report Released Date/Time: Aug 12, 2024 11:45 AM Reporting Lab: [facility] [address] Performing Lab: [facility] [place] [address] GLUCOSE,BLOOD- poct (STL) 188 mg/dL H -Aug 12, 2024 06:13 AM [facility] GLUCOSE,BLOOD-poct (STL) Specimen Type: BLOOD Comment: Test Performed by: [id number] Meter #: [id number] Ordering Provider: SILVIA REDDY Report Released Date/Time: Aug 12, 2024 06:25 AM Reporting Lab: [facility] [address] Performing Lab: [facility] [address] GLUCOSE,BLOOD- poct (STL) 116 mg/dL H 72-99 Aug 11, 2024 04:10 PM [facility] GLUCOSE,BLOOD-poct (STL) Specimen Type: BLOOD Comment: Test Performed by: [id number] Meter #: [id number] Ordering Provider: SILVIA REDDY Report Released Date/Time: Aug 11, 2024 04:27 PM Reporting Lab: [facility] [place] [address] Performing Lab: [facility] [place] [address] GLUCOSE,BLOOD- poct (STL) 184 mg/dL H 72-99 Aug 11, 2024 01:44 PM [facility] MRSA SURVL NARES DNA Specimen [...] 11, 2024 02:03 PM Reporting Lab: [address] [address] Performing Lab: [address] [address] MRSA SURVL NARES DNA Negative Negative Vital Signs: All taken on the encounter date This section contains inpatient and outpatient Vital Signs collected on the date of the Encounter. Date/Time Temperature Pulse Blood Pressure Respiratory Rate SP02 Pain Height Weight Body Mass Index Source Aug 22, 2024 07:17 PM 98.1 74 117/73 20 95 [facility] Aug 22, 2024 10:30 AM 98.1 55 104/61 18 96 [facility] Aug 22, 2024 05:18 AM 97.9 76 120/77 20 95 [facility] Advance Directives: All historical and [...] 2017 [employer] DIRECTIVE DISCUSSION [facility]
--- OUTSIDE RECORDS SUMMARY | 2024-11-17 04:09 | XMS_ITS ---
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 Date/Time Encounter Type Encounter Description Reason Pro vider Source Aug 23, 2024 12:28 AM Inpatient Visit DAILY HOSPITALIZATION DATA [facility] [...] Aug 30, 2024 09:30 AM AMBULATORY MEDICINE [facility] Aug 31, 2024 01:00 PM AMBULATORY - SURGERY [facility] Sep 21, 2024 01:30 PM AMBULATORY - MEDICINE [facility] Sep 22, 2024 11:00 AM AMBULATORY - MEDICINE [facility] Sep 29, 2024 12:30 PM AMBULATORY - MEDICINE [facility] Oct 02, 2024 09:30 AM AMBULATORY - MEDICINE [facility] Nov 20, 2024 10:30 AM AMBULATORY - SURGERY [facility] Nov 21, 2024 10:00 AM AMBULATORY - NONE [facility] Dec 11, 2024 10:30 AM AMBULATORY - MEDICINE [facility] Active, Pending, and Scheduled Orders This section includes a listing of several types of active, pending, and scheduled orders, including clinic medications orders, diagnostic test orders, procedure orders and consult orders; where the start date of the order is 45 days before the date of the Encounter or 45 days after the date of theEncounter. The data comes from all [facility]. Test Date/Time Test Type Test Details Facility Name Aug 02, 2024 12:00 AM Laboratory - Chemistry Order CBC BLOOD STAT SP [facility] Aug 02, 2024 12:00 AM Laboratory - Chemistry Order COMPREHENSIVE METABOLIC PANEL GREEN LI/HEP BLD/PLAS PLASMA SP [facility] Aug 17, 2024 03:47 PM Consult Order [facility] Cons Bedside [facility] Lab Results: +/- 30 days of [...] Aug 22, 2024 11:26 AM Reporting Lab: [facility] [address] Performing Lab: [facility] [address] MAGNESIUM 1.8 mg/dL 1.6-2.6 Aug 23, 2024 08:21 AM [facility] CBC Specimen Type: BLOOD No comment entered. Ordering Provider: SILVIA REDDY Report Released Date/Time: Aug 22, 2024 11:19 AM Reporting Lab: [facility] [address] Performing Lab: [facility] [address] WBC 4.0 10*3/uL 3.6-11.2 RBC 3.65 10*6/uL [...] Specimen Type: BLOOD Comment: Test Performed by: [id number] Meter #: [id number] Ordering Provider: SILVIA REDDY Report Released Date/Time: Aug 23, 2024 05:23 AM Reporting Lab: [facility] [address] Performing Lab: [facility] [address] GLUCOSE,BLOOD- poct (STL) 99 mg/dL 72-99 Aug 23, 2024 02:45 AM [facility] OCCULT BLOOD FIT X1 SCREEN Specimen Type: FECES No comment entered. Ordering Provider: SILVIA REDDY Report Released Date/Time: Aug 22, 2024 11:23 AM Reporting Lab: [address] [address] Performing Lab: [address] [address] OCCULT BLOOD (FIT) #1 OF 1 Negative Negative Aug 22, 2024 07:30 PM [facility] OCCULT BLOOD FIT X1 SCREEN Specimen Type: FECES No comment entered. Ordering Provider: SILVIA REDDY Report Released Date/Time: Aug 22, 2024 11:23 AM Reporting Lab: [address] [address] Performing Lab: [address] [address] OCCULT BLOOD (FIT) #1 OF 1 Negative Negative Aug 22, 2024 06:15 PM [facility] OCCULT BLOOD FIT X1 SCREEN Specimen Type: FECES No comment entered. Ordering Provider: SILVIA REDDY Report Released Date/Time: Aug 22, 2024 11:23 AM Reporting Lab: [address] [address] Performing Lab: [place] [id number] [facility] [address] OCCULT BLOOD (FIT) #1 OF 1 Negative Negative Aug 22, 2024 04:24 PM [facility] GLUCOSE,BLOOD-poct (STL) Specimen Type: BLOOD Comment: Test Performed by: [id number] Meter #: [id number] Ordering Provider: SILVIA REDDY Report Released Date/Time: Aug 22, 2024 04:36 PM Reporting Lab: [facility] [address] Performing Lab: [facility] [address] GLUCOSE,BLOOD- poct (STL) 176 mg/dL H -Aug 22, 2024 04:23 PM [facility] GLUCOSE,BLOOD-poct (STL) Specimen Type: BLOOD Comment: Test Performed by: [id number] Meter #: [id number] Ordering Provider: SILVIA REDDY Report Released Date/Time: Aug 22, 2024 04:36 PM Reporting Lab: [facility] [address] Performing Lab: [facility] [address] GLUCOSE,BLOOD- poct (STL) 221 mg/dL H 72-Aug 22, 2024 11:15 AM [facility] GLUCOSE,BLOOD-poct (STL) Specimen Type: BLOOD Comment: Test Performed by: [id number] Meter #: [id number] Ordering Provider: SILVIA REDDY Report Released Date/Time: Aug 22, 2024 11:27 AM Reporting Lab: [facility] [address] Performing Lab: [facility] [address] GLUCOSE,BLOOD- poct (STL) 140 mg/dL H 72-Aug 22, 2024 08:[address] [facility] FERRITIN Specimen Type: SERUM No comment entered. Ordering Provider: JUDIT PERKINS Report Released Date/Time: Aug 18, 2024 11:01 AM Reporting Lab: [facility] [address] [facility] [address] Performing Lab: [facility] [address] [facility] [address] FERRITIN 79.50 ng/mL 22-275 Aug 22, 2024 08:03 AM [facility] B12 Specimen Type: SERUM No comment entered. Ordering Provider: JUDIT PERKINS Report Released Date/Time: Aug 18, 2024 11:01 AM Reporting Lab: [facility] [address] Performing Lab: [facility] [address] B12 631 pg/mL 213-816 Aug 22, 2024 08:03 AM [facility] IRON/TIBC PROFILE Specimen Type: SERUM No comment entered. Ordering Provider: JUDIT PERKINS Report Released Date/Time: Aug 18, 2024 11:01 AM Reporting Lab: [place] [id number] [facility] [address] Performing Lab: [facility] [address] [place] [address] TIBC 283 ug/dL 250-450 TRANSFERRIN 226 mg/dL 163-344 IRON SATURATION 7 L 20-50 IRON 19 ug/dL L 65-175 Aug 22, 2024 08:03 AM [facility] COMPREHENSIVE METABOLIC PANEL Specimen Type: PLASMA Comment: No hemolysis noted. Ordering Provider: SILVIA REDDY Report Released Date/Time: Aug 17, 2024 01:18 PM Reporting Lab: [facility] [address] [facility] [address] Performing Lab: [address] [address] CREATININE 0.80 mg/dL 0.7-1.3 UREA NITROGEN 9.7 [...] 94.0 >60 Aug 22, 2024 08:03 AM [facility] CBC Specimen Type: BLOOD No comment entered. Ordering Provider: SILVIA REDDY Report Released Date/Time: Aug 17, 2024 01:18 PM Reporting Lab: [facility] [address] Performing Lab: [facility] [address] WBC 3.5 10*3/uL L 3.6-11.2 RBC 3.23 [...] Specimen Type: BLOOD Comment: Test Performed by: [id number] Meter #: [id number] Ordering Provider: SILVIA REDDY Report Released Date/Time: Aug 22, 2024 06:17 AM Reporting Lab: [facility] [address] Performing Lab: [facility] [address] GLUCOSE,BLOOD- poct (STL) 170 mg/dL H 72-Aug 21, 2024 04:32 PM [facility] GLUCOSE,BLOOD-poct (STL) Specimen Type: BLOOD Comment: Test Performed by: [id number] Meter #: [id number] Ordering Provider: SILVIA REDDY Report Released Date/Time: Aug 21, 2024 04:49 PM Reporting Lab: [facility] [address] Performing Lab: [facility] [facility] [address] GLUCOSE,BLOOD- poct (STL) 169 mg/dL H -Aug 21, 2024 11:53 AM [facility] GLUCOSE,BLOOD-poct (STL) Specimen Type: BLOOD Comment: Test Performed by: [id number] Meter #: [id number] Ordering Provider: SILVIA REDDY Report Released Date/Time: Aug 21, 2024 12:11 PM Reporting Lab: [facility] [facility] [address] Performing Lab: [facility] [facility] [address] GLUCOSE,BLOOD- poct (STL) 149 mg/dL H 72-Aug 21, 2024 05:10 AM [facility] GLUCOSE,BLOOD-poct (STL) Specimen Type: BLOOD Comment: Test Performed by: [id number] Meter #: [id number] Ordering Provider: SILVIA REDDY Report Released Date/Time: Aug 21, 2024 05:27 AM Reporting Lab: [facility] [facility] [address] Performing Lab: [facility] [facility] [address] GLUCOSE,BLOOD- poct (STL) 118 mg/dL H 72-Aug 20, 2024 04:38 PM [facility] GLUCOSE,BLOOD-poct (STL) Specimen Type: BLOOD Comment: Test Performed by: [id number] Meter #: [id number] Ordering Provider: SILVIA REDDY Report Released Date/Time: Aug 21, 2024 01:55 AM Reporting Lab: [facility] [facility] [address] Performing Lab: [facility] [address] [place] [address] GLUCOSE,BLOOD- poct (STL) 169 mg/dL H -Aug 20, 2024 04:36 PM [facility] GLUCOSE,BLOOD-poct (STL) Specimen Type: BLOOD Comment: Test Performed by: [id number] Meter #: [id number] Ordering Provider: SILVIA REDDY Report Released Date/Time: Aug 21, 2024 01:55 AM Reporting Lab: [facility] [facility] [address] Performing Lab: [facility] [facility] [address] GLUCOSE,BLOOD- poct (STL) 395 mg/dL H 72-Aug 20, 2024 11:45 AM [facility] GLUCOSE,BLOOD-poct (STL) Specimen Type: BLOOD Comment: Test Performed by: [id number] Meter #: [id number] Ordering Provider: SILVIA REDDY Report Released Date/Time: Aug 20, 2024 11:56 AM Reporting Lab: [facility] [place] [address] Performing Lab: [facility] [facility] [address] GLUCOSE,BLOOD- poct (STL) 169 mg/dL H -Aug 20, 2024 05:06 AM [facility] GLUCOSE,BLOOD-poct (STL) Specimen Type: BLOOD Comment: Test Performed by: [id number] Meter #: [id number] Ordering Provider: SILVIA REDDY Report Released Date/Time: Aug 20, 2024 06:05 AM Reporting Lab: [facility] [address] Performing Lab: [facility] [facility] [address] GLUCOSE,BLOOD- poct (STL) 115 mg/dL H -Aug 19, 2024 04:23 PM [facility] GLUCOSE,BLOOD-poct (STL) Specimen Type: BLOOD Comment: Test Performed by: [id number] Meter #: [id number] Ordering Provider: SILVIA REDDY Report Released Date/Time: Aug 19, 2024 05:54 PM Reporting Lab: [facility] [address] Performing Lab: [facility] [facility] [address] GLUCOSE,BLOOD- poct (STL) 137 mg/dL H -Aug 19, 2024 11:28 AM [facility] GLUCOSE,BLOOD-poct (STL) Specimen Type: BLOOD Comment: Test Performed by: [id number] Meter #: [id number] Ordering Provider: SILVIA REDDY Report Released Date/Time: Aug 19, 2024 11:51 AM Reporting Lab: [facility] [address] Performing Lab: [facility] [address] GLUCOSE,BLOOD- poct (STL) 190 mg/dL H Aug 19, 2024 05:21 AM [facility] GLUCOSE,BLOOD-poct (STL) Specimen Type: BLOOD Comment: Test Performed by: [id number] Meter #: [id number] Ordering Provider: SILVIA REDDY Report Released Date/Time: Aug 19, 2024 05:56 AM Reporting Lab: [facility] [address] Performing Lab: [facility] [facility] [address] GLUCOSE,BLOOD- poct (STL) 130 mg/dL H Aug 18, 2024 04:49 PM [facility] GLUCOSE,BLOOD-poct (STL) Specimen Type: BLOOD Comment: Test Performed by: [id number] Meter #: [id number] Ordering Provider: SILVIA REDDY Report Released Date/Time: Aug 18, 2024 05:01 PM Reporting Lab: [facility] [address] Performing Lab: [facility] [facility] [address] GLUCOSE,BLOOD- poct (STL) 129 mg/dL H Aug 18, 2024 11:23 AM [facility] GLUCOSE,BLOOD-poct (STL) Specimen Type: BLOOD Comment: Test Performed by: [id number] Meter #: [id number] Ordering Provider: SILVIA REDDY Report Released Date/Time: Aug 18, 2024 11:41 AM Reporting Lab: [facility] [facility] [address] Performing Lab: [facility] [facility] [address] GLUCOSE,BLOOD- poct (STL) 180 mg/dL H Aug 18, 2024 05:08 AM [facility] GLUCOSE,BLOOD-poct (STL) Specimen Type: BLOOD Comment: Test Performed by: [id number] Meter #: [id number] Ordering Provider: SILVIA REDDY Report Released Date/Time: Aug 18, 2024 05:31 AM Reporting Lab: [facility] [facility] [address] Performing Lab: [facility] [facility] [address] GLUCOSE,BLOOD- poct (STL) 127 mg/dL H -Aug 17, 2024 07:32 PM [facility] GLUCOSE,BLOOD-poct (STL) Specimen Type: BLOOD Comment: Test Performed by: [id number] Meter #: [id number] Ordering Provider: SILVIA REDDY Report Released Date/Time: Aug 17, 2024 07:59 PM Reporting Lab: [facility] [facility] [address] Performing Lab: [facility] [facility] [address] GLUCOSE,BLOOD- poct (STL) 154 mg/dL H -Aug 17, 2024 04:24 PM [facility] GLUCOSE,BLOOD-poct (STL) Specimen Type: BLOOD Comment: Test Performed by: [id number] Meter #: [id number] Ordering Provider: SILVIA REDDY Report Released Date/Time: Aug 17, 2024 04:35 PM Reporting Lab: [facility] [facility] [address] Performing Lab: [facility] [address] GLUCOSE,BLOOD- poct (STL) 178 mg/dL H -Aug 17, 2024 05:09 AM [facility] GLUCOSE,BLOOD-poct (STL) Specimen Type: BLOOD Comment: Test Performed by: [id number] Meter #: [id number] Ordering Provider: SILVIA REDDY Report Released Date/Time: Aug 17, 2024 05:54 AM Reporting Lab: [facility] [place] [address] Performing Lab: [facility] [address] GLUCOSE,BLOOD- poct (STL) 124 mg/dL H -Aug 16, 2024 07:40 PM [facility] GLUCOSE,BLOOD-poct (STL) Specimen Type: BLOOD Comment: Test Performed by: [id number] Meter #: [id number] Ordering Provider: SILVIA REDDY Report Released Date/Time: Aug 16, 2024 08:28 PM Reporting Lab: [facility] [address] Performing Lab: [facility] [facility] [address] GLUCOSE,BLOOD- poct (STL) 144 mg/dL H Aug 16, 2024 04:19 PM [facility] GLUCOSE,BLOOD-poct (STL) Specimen Type: BLOOD Comment: Test Performed by: [id number] Meter #: [id number] Ordering Provider: SILVIA REDDY Report Released Date/Time: Aug 16, 2024 04:45 PM Reporting Lab: [facility] [address] Performing Lab: [facility] [address] GLUCOSE,BLOOD- poct (STL) 138 mg/dL H Aug 16, 2024 11:52 AM [facility] GLUCOSE,BLOOD-poct (STL) Specimen Type: BLOOD Comment: Test Performed by: [id number] Meter #: [id number] Ordering Provider: SILVIA REDDY Report Released Date/Time: Aug 16, 2024 12:04 PM Reporting Lab: [facility] [address] Performing Lab: [facility] [address] GLUCOSE,BLOOD- poct (STL) 135 mg/dL H Aug 16, 2024 05:24 AM [facility] GLUCOSE,BLOOD-poct (STL) Specimen Type: BLOOD Comment: Test Performed by: [id number] Meter #: [id number] Ordering Provider: SILVIA REDDY Report Released Date/Time: Aug 16, 2024 05:38 AM Reporting Lab: [facility] [address] Performing Lab: [facility] [address] GLUCOSE,BLOOD- poct (STL) 151 mg/dL H Aug 15, 2024 07:31 PM [facility] GLUCOSE,BLOOD-poct (STL) Specimen Type: BLOOD Comment: Test Performed by: [id number] Meter #: [id number] Ordering Provider: SILVIA REDDY Report Released Date/Time: Aug 15, 2024 08:07 PM Reporting Lab: [facility] [address] Performing Lab: [facility] [address] GLUCOSE,BLOOD- poct (STL) 173 mg/dL H Aug 15, 2024 04:18 PM [facility] GLUCOSE,BLOOD-poct (STL) Specimen Type: BLOOD Comment: Test Performed by: [id number] Meter #: [id number] Ordering Provider: SILVIA REDDY Report Released Date/Time: Aug 15, 2024 04:59 PM Reporting Lab: [facility] [address] Performing Lab: [facility] [address] GLUCOSE,BLOOD- poct (STL) 136 mg/dL H Aug 15, 2024 04:16 PM [facility] GLUCOSE,BLOOD-poct (STL) Specimen Type: BLOOD Comment: Test Performed by: [id number] Meter #: [id number] Ordering Provider: SILVIA REDDY Report Released Date/Time: Aug 15, 2024 04:59 PM Reporting Lab: [facility] [address] Performing Lab: [facility] [address] GLUCOSE,BLOOD- poct (STL) 194 mg/dL H -Aug 15, 2024 11:39 AM [facility] GLUCOSE,BLOOD-poct (STL) Specimen Type: BLOOD Comment: Test Performed by: [id number] Meter #: [id number] Ordering Provider: SILVIA REDDY Report Released Date/Time: Aug 15, 2024 12:00 PM Reporting Lab: [facility] [address] Performing Lab: [facility] [address] GLUCOSE,BLOOD- poct (STL) 127 mg/dL H -Aug 15, 2024 05:07 AM [facility] GLUCOSE,BLOOD-poct (STL) Specimen Type: BLOOD Comment: Test Performed by: [id number] Meter #: [id number] Ordering Provider: SILVIA REDDY Report Released Date/Time: Aug 15, 2024 06:14 AM Reporting Lab: [facility] [address] Performing Lab: [facility] [address] GLUCOSE,BLOOD- poct (STL) 151 mg/dL H -Aug 14, 2024 04:22 PM [facility] GLUCOSE,BLOOD-poct (STL) Specimen Type: BLOOD Comment: Test Performed by: [id number] Meter #: [id number] Ordering Provider: SILVIA REDDY Report Released Date/Time: Aug 14, 2024 04:52 PM Reporting Lab: [facility] [place] [address] Performing Lab: [facility] [address] GLUCOSE,BLOOD- poct (STL) 129 mg/dL H 72-99 Aug 14, 2024 11:21 AM [facility] GLUCOSE,BLOOD-poct (STL) Specimen Type: BLOOD Comment: Test Performed by: [id number] Meter #: [id number] Ordering Provider: SILVIA REDDY Report Released Date/Time: Aug 14, 2024 11:37 AM Reporting Lab: [facility] [address] Performing Lab: [facility] [address] GLUCOSE,BLOOD- poct (STL) 135 mg/dL H 72-99 [...] For additional information, please refer to http://education. [employer]/faq/FKO118 (This link is being provided for information/ educational purposes only.) Test Performed by [employer], [employer] [facility], [address] [place] [address] Tommie Garcia M.D., Ph.D., Director of Laboratories , [facility] [id number] Ordering Provider: SILVIA REDDY Report Released Date/Time: Aug 11, 2024 03:58 PM Reporting Lab: [facility] [address] [facility] [address] Performing Lab: [facility] [id number] [place] [address] .NIL - QUANTIFERON 0.04 [IU]/mL .MITOGEN-NIL 0.39 [IU]/mL .QUANTIFERON INDETERMINATE NEGATIVE .TB1-NIL <0.00 [IU]/mL .TB2-NIL <0.00 [IU]/mL Aug 14, 2024 06:59 AM [facility] MAGNESIUM Specimen Type: PLASMA Comment: No hemolysis noted. Ordering Provider: SILVIA REDDY Report Released Date/Time: Aug 11, 2024 03:58 PM Reporting Lab: [facility] [address] Performing Lab: [facility] [address] MAGNESIUM 1.9 mg/dL 1.6-2.6 Aug 14, 2024 06:59 AM [facility] B12 Specimen Type: SERUM No comment entered. Ordering Provider: SILVIA REDDY Report Released Date/Time: Aug 11, 2024 03:58 PM Reporting Lab: [facility] [address] Performing Lab: [facility] [address] B12 757 pg/mL 213-816 Aug 14, 2024 06:59 AM [facility] FOLATE (STL-MA) Specimen Type: SERUM No comment entered. Ordering Provider: SILVIA REDDY Report Released Date/Time: Aug 11, 2024 03:58 PM Reporting Lab: [facility] [address] Performing Lab: [facility] [address] FOLATE (STL-MA) 6.8 ng/mL L 7-20 Aug 14, 2024 06:59 AM [facility] VITAMIN D, 25-HYDROXY Specimen Type: SERUM No comment entered. Ordering Provider: SILVIA REDDY Report Released Date/Time: Aug 11, 2024 03:58 PM Reporting Lab: [facility] [address] Performing Lab: [facility] [address] VITAMIN D, 25-HYDROXY 8.9 ng/mL L 30-96 Aug 14, 2024 06:59 AM [facility] COMPREHENSIVE METABOLIC PANEL Specimen Type: PLASMA Comment: No hemolysis noted. Ordering Provider: SILVIA REDDY Report Released Date/Time: Aug 11, 2024 03:58 PM Reporting Lab: [facility] [address] Performing Lab: [facility] [address] CREATININE 0.75 mg/dL 0.70-1.30 UREA NITROGEN 13.6 [...] 95.88 >60 Aug 14, 2024 06:59 AM [facility] CBC Specimen Type: BLOOD No comment entered. Ordering Provider: SILVIA REDDY Report Released Date/Time: Aug 11, 2024 03:58 PM Reporting Lab: [facility] [address] Performing Lab: [facility] [address] WBC 4.1 10*3/uL 3.6-11.2 RBC 3.20 10*6/uL [...] 10*3/uL 0.00-0.20 Aug 14, 2024 05:08 AM [facility] GLUCOSE,BLOOD-poct (STL) Specimen Type: BLOOD Comment: Test Performed by: [id number] Meter #: [id number] Ordering Provider: SILVIA REDDY Report Released Date/Time: Aug 14, 2024 05:52 AM Reporting Lab: [facility] [address] Performing Lab: [facility] [address] GLUCOSE,BLOOD- poct (STL) 135 mg/dL H 72-99 Aug 13, 2024 04:27 PM [facility] GLUCOSE,BLOOD-poct (STL) Specimen Type: BLOOD Comment: Test Performed by: [id number] Meter #: [id number] Ordering Provider: SILVIA REDDY Report Released Date/Time: Aug 13, 2024 04:41 PM Reporting Lab: [facility] [address] Performing Lab: [facility] [address] GLUCOSE,BLOOD- poct (STL) 181 mg/dL H -Aug 13, 2024 11:33 AM [facility] GLUCOSE,BLOOD-poct (STL) Specimen Type: BLOOD Comment: Test Performed by: [id number] Meter #: [id number] Ordering Provider: SILVIA REDDY Report Released Date/Time: Aug 13, 2024 03:55 PM Reporting Lab: [facility] [address] Performing Lab: [facility] [place] [address] GLUCOSE,BLOOD- poct (STL) 140 mg/dL H Aug 13, 2024 05:54 AM [facility] GLUCOSE,BLOOD-poct (STL) Specimen Type: BLOOD Comment: Test Performed by: [id number] Meter #: [id number] Ordering Provider: SILVIA REDDY Report Released Date/Time: Aug 13, 2024 06:20 AM Reporting Lab: [facility] [address] Performing Lab: [facility] [address] GLUCOSE,BLOOD- poct (STL) 112 mg/dL H Aug 12, 2024 04:35 PM [facility] GLUCOSE,BLOOD-poct (STL) Specimen Type: BLOOD Comment: Test Performed by: [id number] Meter #: [id number] Ordering Provider: SILVIA REDDY Report Released Date/Time: Aug 12, 2024 04:47 PM Reporting Lab: [facility] [address] Performing Lab: [facility] [address] GLUCOSE,BLOOD- poct (STL) 128 mg/dL H 72-99 Aug 12, 2024 11:26 AM [facility] GLUCOSE,BLOOD-poct (STL) Specimen Type: BLOOD Comment: Test Performed by: [id number] Meter #: [id number] Ordering Provider: SILVIA REDDY Report Released Date/Time: Aug 12, 2024 11:45 AM Reporting Lab: [facility] [address] Performing Lab: [facility] [address] GLUCOSE,BLOOD- poct (STL) 188 mg/dL H 72-Aug 12, 2024 06:13 AM [facility] GLUCOSE,BLOOD-poct (STL) Specimen Type: BLOOD Comment: Test Performed by: [id number] Meter #: [id number] Ordering Provider: SILVIA REDDY Report Released Date/Time: Aug 12, 2024 06:25 AM Reporting Lab: [facility] [address] Performing Lab: [facility] [address] GLUCOSE,BLOOD- poct (STL) 116 mg/dL H 72-99 Aug 11, 2024 04:10 PM [facility] GLUCOSE,BLOOD-poct (STL) Specimen Type: BLOOD Comment: Test Performed by: [id number] Meter #: [id number] Ordering Provider: SILVIA REDDY Report Released Date/Time: Aug 11, 2024 04:27 PM Reporting Lab: [facility] [place] [address] Performing Lab: [facility] [place] [address] GLUCOSE,BLOOD- poct (STL) 184 mg/dL H 72-99 Aug 11, 2024 01:44 PM [facility] MRSA SURVL NARES DNA Specimen Type: NARES [...] Aug 11, 2024 02:03 PM Reporting Lab: [address] [address] Performing Lab: [address] [address] MRSA SURVL NARES DNA Negative Negative Vital Signs: All taken on the encounter date This section contains inpatient and outpatient Vital Signs collected on the date of the Encounter. Date/Time Temperature Pulse Blood Pressure Respiratory Rate SP02 Pain Height Weight Body Mass Index Source Aug 23, 2024 09:39 AM 0 [facility] N Aug 23, 2024 05:19 AM 71 124/62 99 [facility] N Advance Directives: All historical and [...] 19, 2017 ADVANCE DIRECTIVE DISCUSSION ER[facility]
--- OUTSIDE RECORDS SUMMARY | 2024-11-17 04:09 | XMS_ITS ---
[place] DAILY HOSPITALIZATION DATA [facility] Encounter Summary Created on: November 16, 2024 CHET WALKER : 1950 Sex: Male Author Name [facility] [place] [facility] [place] Address [address] [place] [address] Care Team Providers Care Special Skills Officer Name Role Phone MANUEL BAIRD Primary [...] PART A Apr 08, 2017 PART A [id number] ASHLEY WALKER PATIENT Selected Encounter This section includes the information on record at [place] for the Encounter. Date/Time Encounter Type Encounter Description Reason Pro vider Source Aug 22, 2024 06:19 PM Inpatient Visit DAILY HOSPITALIZATION DATA [facility] Encounter Template Text not used by [place] [...] appointments. The data comes from all [facility]. Appointment Date/Time Appointment Type Appointme nt Facility Name Aug 24, 2024 10:00 AM [facility]ATORY [facility] Aug 24, 2024 10:30 AM [facility] Aug 30, 2024 09:30 AM [facility]ORY [facility] Aug 31, 2024 01:00 PM AMBULATORY - SURGERY [facility] Sep 21, 2024 01:30 PM AMBULATORY - MEDICINE [facility] Sep 22, 2024 11:00 AM AMBULATORY - MEDICINE [facility] Sep 29, 2024 12:30 PM AMBULATORY - MEDICINE [facility] Oct 02, 2024 09:30 AM AMBULATORY - [facility]IC[facility] Nov 20, 2024 10:30 AM AMBULATORY - SUR[facility]ERY [facility] Nov 21, 2024 10:00 AM AMBULATORY - NONE [facility] Dec 11, 2024 10:30 AM AMBULATORY - MEDICINE [facility] Active, Pending, and Scheduled Orders This section includes a listing of several types of active, pending, and scheduled orders, including clinic medications orders, diagnostic test orders, procedure orders and consult orders; where the start date of the order is 45 days before the date of the Encounter or 45 days after the date of theEncounter. The data comes from all [facility]. Test Date/Time Test Type Test Details Facility Name Aug 02, 2024 12:00 AM Laboratory - Chemistry Order CBC BLOOD STAT SP [facility] Aug 02, 2024 12:00 AM Laboratory - Chemistry Order COMPREHENSIVE METABOLIC PANEL GREEN LI/HEP BLD/PLAS PLASMA SP [facility] Aug 17, 2024 03:47 PM Consult Order [facility] [place] [facility] Cons Bedside [facility] Lab Results: +/- 30 days of [...] Range Comment Aug 23, 2024 08:21 AM [facility] MAGNESIUM Specimen Type: PLASMA No comment entered. Ordering Provider: SILVIA REDDY Report Released Date/Time: Aug 22, 2024 11:26 AM Reporting Lab: [facility] [facility] [address] Performing Lab: [facility] [address] MAGNESIUM 1.8 mg/dL 1.6-2.6 Aug 23, 2024 08:21 AM [facility] CBC Specimen Type: BLOOD No comment entered. Ordering Provider: SILVIA REDDY Report Released Date/Time: Aug 22, 2024 11:19 AM Reporting Lab: [facility] [address] Performing Lab: [facility] [address] WBC 4.0 10*3/uL 3.6-11.2 RBC 3.65 10*6/uL [...] 10*3/uL 0.00-0.20 Aug 23, 2024 05:12 AM [facility] GLUCOSE,BLOOD-poct (STL) Specimen Type: BLOOD Comment: Test Performed by: [id number] Meter #: [id number] Ordering Provider: SILVIA REDDY Report Released Date/Time: Aug 23, 2024 05:23 AM Reporting Lab: [facility] [address] Performing Lab: [facility] [address] [address] GLUCOSE,BLOOD- poct (STL) 99 mg/dL 72-99 Aug 23, 2024 02:45 AM [facility] OCCULT BLOOD FIT X1 SCREEN Specimen Type: FECES No comment entered. Ordering Provider: SILVIA REDDY Report Released Date/Time: Aug 22, 2024 11:23 AM Reporting Lab: [address] [address] Performing Lab: [address] [address] OCCULT BLOOD (FIT) #1 OF 1 Negative Negative Aug 22, 2024 07:30 PM [facility] OCCULT BLOOD FIT X1 SCREEN Specimen Type: FECES No comment entered. Ordering Provider: SILVIA REDDY Report Released Date/Time: Aug 22, 2024 11:23 AM Reporting Lab: [address] [address] Performing Lab: [address] [address] OCCULT BLOOD (FIT) #1 OF 1 Negative Negative Aug 22, 2024 06:15 PM [facility] OCCULT BLOOD FIT X1 SCREEN Specimen Type: FECES No comment entered. Ordering Provider: SILVIA REDDY Report Released Date/Time: Aug 22, 2024 11:23 AM Reporting Lab: [address] [address] Performing Lab: [facility] [address] [facility] [address] OCCULT BLOOD (FIT) #1 OF 1 Negative Negative Aug 22, 2024 04:24 PM [facility] GLUCOSE,BLOOD-poct (STL) Specimen Type: BLOOD Comment: Test Performed by: [id number] Meter #: [id number] Ordering Provider: SILVIA REDDY Report Released Date/Time: Aug 22, 2024 04:36 PM Reporting Lab: [facility] [address] Performing Lab: [facility] [address] [address] GLUCOSE,BLOOD- poct (STL) 176 mg/dL H -Aug 22, 2024 04:23 PM [facility] GLUCOSE,BLOOD-poct (STL) Specimen Type: BLOOD Comment: Test Performed by: [id number] Meter #: [id number] Ordering Provider: SILVIA REDDY Report Released Date/Time: Aug 22, 2024 04:36 PM Reporting Lab: [facility] [address] Performing Lab: [facility] [address] GLUCOSE,BLOOD- poct (STL) 221 mg/dL H 72-Aug 22, 2024 11:15 AM [facility] GLUCOSE,BLOOD-poct (STL) Specimen Type: BLOOD Comment: Test Performed by: [id number] Meter #: [id number] Ordering Provider: SILVIA REDDY Report Released Date/Time: Aug 22, 2024 11:27 AM Reporting Lab: [facility] [address] Performing Lab: [facility] [address] GLUCOSE,BLOOD- poct (STL) 140 mg/dL H 72-Aug 22, 2024 08:03 AM [facility] FERRITIN Specimen Type: SERUM No comment entered. Ordering Provider: JUDIT PERKINS Report Released Date/Time: Aug 18, 2024 11:01 AM Reporting Lab: [facility] [address] [facility] [address] Performing Lab: [facility] [address] [facility] [address] FERRITIN 79.50 ng/mL 22-275 Aug 22, 2024 08:03 AM [facility] IRON/TIBC PROFILE Specimen Type: SERUM No comment entered. Ordering Provider: JUDIT PERKINS Report Released Date/Time: Aug 18, 2024 11:01 AM Reporting Lab: [address] [address] Performing Lab: [address] [address] TIBC 283 ug/dL 250-450 TRANSFERRIN 226 mg/dL 163-344 IRON SATURATION 7 L 20-50 IRON 19 ug/dL L 65-175 Aug 22, 2024 08:03 AM [facility] B12 Specimen Type: SERUM No comment entered. Ordering Provider: JUDIT PERKINS Report Released Date/Time: Aug 18, 2024 11:01 AM Reporting Lab: [facility] [address] Performing Lab: [facility] [address] [facility] [address] B12 631 pg/mL 213-816 Aug 22, 2024 08:03 AM [facility] COMPREHENSIVE METABOLIC PANEL Specimen Type: PLASMA Comment: No hemolysis noted. Ordering Provider: SILVIA REDDY Report Released Date/Time: Aug 17, 2024 01:18 PM Reporting Lab: [facility] [address] [facility] [address] Performing Lab: [address] [address] CREATININE 0.80 mg/dL 0.7-1.3 UREA NITROGEN 9.7 [...] Aug 22, 2024 08:03 AM [facility] CBC Specimen Type: BLOOD No comment entered. Ordering Provider: SILVIA REDDY Report Released Date/Time: Aug 17, 2024 01:18 PM Reporting Lab: [facility] [address] Performing Lab: [facility] [address] WBC 3.5 10*3/uL L 3.6-11.2 RBC 3.23 [...] NRBC% 0 Aug 22, 2024 05:03 AM [facility] GLUCOSE,BLOOD-poct (STL) Specimen Type: BLOOD Comment: Test Performed by: [id number] Meter #: [id number] Ordering Provider: SILVIA REDDY Report Released Date/Time: Aug 22, 2024 06:17 AM Reporting Lab: [facility] [address] [facility] [address] Performing Lab: [facility] [address] [facility] [address] GLUCOSE,BLOOD- poct (STL) 170 mg/dL H 72-Aug 21, 2024 04:32 PM [facility] GLUCOSE,BLOOD-poct (STL) Specimen Type: BLOOD Comment: Test Performed by: [id number] Meter #: [id number] Ordering Provider: SILVIA REDDY Report Released Date/Time: Aug 21, 2024 04:49 PM Reporting Lab: [facility] [facility] [address] Performing Lab: [facility] [address] [facility] [address] GLUCOSE,BLOOD- poct (STL) 169 mg/dL H -99 Aug 21, 2024 11:53 AM [facility] GLUCOSE,BLOOD-poct (STL) Specimen Type: BLOOD Comment: Test Performed by: [id number] Meter #: [id number] Ordering Provider: SILVIA REDDY Report Released Date/Time: Aug 21, 2024 12:11 PM Reporting Lab: [facility] [address] [facility] [address] Performing Lab: [facility] [address] GLUCOSE,BLOOD- poct (STL) 149 mg/dL H 72-99 Aug 21, 2024 05:10 AM [facility] GLUCOSE,BLOOD-poct (STL) Specimen Type: BLOOD Comment: Test Performed by: [id number] Meter #: [id number] Ordering Provider: SILVIA REDDY Report Released Date/Time: Aug 21, 2024 05:27 AM Reporting Lab: [facility] [place] [address] Performing Lab: [facility] [address] [place] [phone] GLUCOSE,BLOOD- poct (STL) 118 mg/dL H 72-99 Aug 20, 2024 04:38 PM [facility] GLUCOSE,BLOOD-poct (STL) Specimen Type: BLOOD Comment: Test Performed by: [id number] Meter #: [id number] Ordering Provider: SILVIA REDDY Report Released Date/Time: Aug 21, 2024 01:55 AM Reporting Lab: [facility] [address] [place] [address] Performing Lab: [facility] [address] [place] [address] GLUCOSE,BLOOD- poct (STL) 169 mg/dL H 72-Aug 20, 2024 04:36 PM [facility] GLUCOSE,BLOOD-poct (STL) Specimen Type: BLOOD Comment: Test Performed by: [id number] Meter #: [id number] Ordering Provider: SILVIA REDDY Report Released Date/Time: Aug 21, 2024 01:55 AM Reporting Lab: [facility] [place] [address] Performing Lab: [facility] [address] [place] [address] GLUCOSE,BLOOD- poct (STL) 395 mg/dL H 72-99 Aug 20, 2024 11:45 AM [facility] GLUCOSE,BLOOD-poct (STL) Specimen Type: BLOOD Comment: Test Performed by: [id number] Meter #: [id number] Ordering Provider: SILVIA REDDY Report Released Date/Time: Aug 20, 2024 11:56 AM Reporting Lab: [facility] [address] Performing Lab: [facility] [address] [facility] [address] GLUCOSE,BLOOD- poct (STL) 169 mg/dL H 72-Aug 20, 2024 05:06 AM [facility] GLUCOSE,BLOOD-poct (STL) Specimen Type: BLOOD Comment: Test Performed by: [id number] Meter #: [id number] Ordering Provider: SILVIA REDDY Report Released Date/Time: Aug 20, 2024 06:05 AM Reporting Lab: [facility] [facility] [address] Performing Lab: [facility] [facility] [address] GLUCOSE,BLOOD- poct (STL) 115 mg/dL H 72-Aug 19, 2024 04:23 PM [facility] GLUCOSE,BLOOD-poct (STL) Specimen Type: BLOOD Comment: Test Performed by: [id number] Meter #: [id number] Ordering Provider: SILVIA REDDY Report Released Date/Time: Aug 19, 2024 05:54 PM Reporting Lab: [facility] [facility] [address] Performing Lab: [facility] [facility] [address] GLUCOSE,BLOOD- poct (STL) 137 mg/dL H 72-99 Aug 19, 2024 11:28 AM [facility] GLUCOSE,BLOOD-poct (STL) Specimen Type: BLOOD Comment: Test Performed by: [id number] Meter #: [id number] Ordering Provider: SILVIA REDDY Report Released Date/Time: Aug 19, 2024 11:51 AM Reporting Lab: [facility] [facility] [address] Performing Lab: [facility] [address] GLUCOSE,BLOOD- poct (STL) 190 mg/dL H 72-99 Aug 19, 2024 05:21 AM [facility] GLUCOSE,BLOOD-poct (STL) Specimen Type: BLOOD Comment: Test Performed by: [id number] Meter #: [id number] Ordering Provider: SILVIA REDDY Report Released Date/Time: Aug 19, 2024 05:56 AM Reporting Lab: [facility] [facility] [address] Performing Lab: [facility] [facility] [address] GLUCOSE,BLOOD- poct (STL) 130 mg/dL H Aug 18, 2024 04:49 PM [facility] GLUCOSE,BLOOD-poct (STL) Specimen Type: BLOOD Comment: Test Performed by: [id number] Meter #: [id number] Ordering Provider: SILVIA REDDY Report Released Date/Time: Aug 18, 2024 05:01 PM Reporting Lab: [facility] [address] Performing Lab: [facility] [address] GLUCOSE,BLOOD- poct (STL) 129 mg/dL H Aug 18, 2024 11:23 AM [facility] GLUCOSE,BLOOD-poct (STL) Specimen Type: BLOOD Comment: Test Performed by: [id number] Meter #: [id number] Ordering Provider: SILVIA REDDY Report Released Date/Time: Aug 18, 2024 11:41 AM Reporting Lab: [facility] [facility] [address] Performing Lab: [facility] [facility] [address] GLUCOSE,BLOOD- poct (STL) 180 mg/dL H Aug 18, 2024 05:08 AM [facility] GLUCOSE,BLOOD-poct (STL) Specimen Type: BLOOD Comment: Test Performed by: [id number] Meter #: [id number] Ordering Provider: SILVIA REDDY Report Released Date/Time: Aug 18, 2024 05:31 AM Reporting Lab: [facility] [place] [address] Performing Lab: [facility] [facility] [address] GLUCOSE,BLOOD- poct (STL) 127 mg/dL H -Aug 17, 2024 07:32 PM [facility] GLUCOSE,BLOOD-poct (STL) Specimen Type: BLOOD Comment: Test Performed by: [id number] Meter #: [id number] Ordering Provider: SILVIA REDDY Report Released Date/Time: Aug 17, 2024 07:59 PM Reporting Lab: [facility] [place] [address] Performing Lab: [facility] [place] [address] GLUCOSE,BLOOD- poct (STL) 154 mg/dL H -Aug 17, 2024 04:24 PM [facility] GLUCOSE,BLOOD-poct (STL) Specimen Type: BLOOD Comment: Test Performed by: [id number] Meter #: [id number] Ordering Provider: SILVIA REDDY Report Released Date/Time: Aug 17, 2024 04:35 PM Reporting Lab: [facility] [place] [address] Performing Lab: [facility] [place] [address] GLUCOSE,BLOOD- poct (STL) 178 mg/dL H -Aug 17, 2024 05:09 AM [facility] GLUCOSE,BLOOD-poct (STL) Specimen Type: BLOOD Comment: Test Performed by: [id number] Meter #: [id number] Ordering Provider: SILVIA REDDY Report Released Date/Time: Aug 17, 2024 05:54 AM Reporting Lab: [facility] [address] Performing Lab: [facility] [address] GLUCOSE,BLOOD- poct (STL) 124 mg/dL H 72-Aug 16, 2024 07:40 PM [facility] GLUCOSE,BLOOD-poct (STL) Specimen Type: BLOOD Comment: Test Performed by: [id number] Meter #: [id number] Ordering Provider: SILVIA REDDY Report Released Date/Time: Aug 16, 2024 08:28 PM Reporting Lab: [facility] [address] Performing Lab: [facility] [address] GLUCOSE,BLOOD- poct (STL) 144 mg/dL H -Aug 16, 2024 04:19 PM [facility] GLUCOSE,BLOOD-poct (STL) Specimen Type: BLOOD Comment: Test Performed by: [id number] Meter #: [id number] Ordering Provider: SILVIA REDDY Report Released Date/Time: Aug 16, 2024 04:45 PM Reporting Lab: [facility] [address] Performing Lab: [facility] [address] GLUCOSE,BLOOD- poct (STL) 138 mg/dL H 72-Aug 16, 2024 11:52 AM [facility] GLUCOSE,BLOOD-poct (STL) Specimen Type: BLOOD Comment: Test Performed by: [id number] Meter #: [id number] Ordering Provider: SILVIA REDDY Report Released Date/Time: Aug 16, 2024 12:04 PM Reporting Lab: [facility] [address] Performing Lab: [facility] [address] GLUCOSE,BLOOD- poct (STL) 135 mg/dL H 72-99 Aug 16, 2024 05:24 AM [facility] GLUCOSE,BLOOD-poct (STL) Specimen Type: BLOOD Comment: Test Performed by: [id number] Meter #: [id number] Ordering Provider: SILVIA REDDY Report Released Date/Time: Aug 16, 2024 05:38 AM Reporting Lab: [facility] [address] Performing Lab: [facility] [address] GLUCOSE,BLOOD- poct (STL) 151 mg/dL H Aug 15, 2024 07:31 PM [facility] GLUCOSE,BLOOD-poct (STL) Specimen Type: BLOOD Comment: Test Performed by: [id number] Meter #: [id number] Ordering Provider: SILVIA REDDY Report Released Date/Time: Aug 15, 2024 08:07 PM Reporting Lab: [facility] [address] Performing Lab: [facility] [address] GLUCOSE,BLOOD- poct (STL) 173 mg/dL H Aug 15, 2024 04:18 PM [facility] GLUCOSE,BLOOD-poct (STL) Specimen Type: BLOOD Comment: Test Performed by: [id number] Meter #: [id number] Ordering Provider: SILVIA REDDY Report Released Date/Time: Aug 15, 2024 04:59 PM Reporting Lab: [facility] [address] Performing Lab: [facility] [address] GLUCOSE,BLOOD- poct (STL) 136 mg/dL H Aug 15, 2024 04:16 PM [facility] GLUCOSE,BLOOD-poct (STL) Specimen Type: BLOOD Comment: Test Performed by: [id number] Meter #: [id number] Ordering Provider: SILVIA REDDY Report Released Date/Time: Aug 15, 2024 04:59 PM Reporting Lab: [facility] [place] [address] Performing Lab: [facility] [address] GLUCOSE,BLOOD- poct (STL) 194 mg/dL H 72-Aug 15, 2024 11:39 AM [facility] GLUCOSE,BLOOD-poct (STL) Specimen Type: BLOOD Comment: Test Performed by: [id number] Meter #: [id number] Ordering Provider: SILVIA REDDY Report Released Date/Time: Aug 15, 2024 12:00 PM Reporting Lab: [facility] [place] [address] Performing Lab: [facility] [place] [address] GLUCOSE,BLOOD- poct (STL) 127 mg/dL H -Aug 15, 2024 05:07 AM [facility] GLUCOSE,BLOOD-poct (STL) Specimen Type: BLOOD Comment: Test Performed by: [id number] Meter #: [id number] Ordering Provider: SILVIA REDDY Report Released Date/Time: Aug 15, 2024 06:14 AM Reporting Lab: [facility] [place] [address] Performing Lab: [facility] [place] [address] GLUCOSE,BLOOD- poct (STL) 151 mg/dL H -Aug 14, 2024 04:22 PM [facility] GLUCOSE,BLOOD-poct (STL) Specimen Type: BLOOD Comment: Test Performed by: [id number] Meter #: [id number] Ordering Provider: SILVIA REDDY Report Released Date/Time: Aug 14, 2024 04:52 PM Reporting Lab: [facility] [address] Performing Lab: [facility] [address] GLUCOSE,BLOOD- poct (STL) 129 mg/dL H 72-99 Aug 14, 2024 11:21 AM [facility] GLUCOSE,BLOOD-poct (STL) Specimen Type: BLOOD Comment: Test Performed by: [id number] Meter #: [id number] Ordering Provider: SILVIA REDDY Report Released Date/Time: Aug 14, 2024 11:37 AM Reporting Lab: [facility] [address] Performing Lab: [facility] [address] GLUCOSE,BLOOD- poct (STL) 135 mg/dL H 72-Aug 14, 2024 06:59 AM [facility] QUANTIFERON-TB,4 TUBE Specimen Type: [...] For additional information, please refer to [email or web address] [employer] [address]/faq/RED819 (This link is being provided for information/ educational purposes only.) Test Performed by [facility], [facility], [address] [place] [address] Tommie Garcia M.D., Ph.D., Director of Laboratories , [facility] [id number] Ordering Provider: SILVIA REDDY Report Released Date/Time: Aug 11, 2024 03:58 PM Reporting Lab: [facility] [address] [facility] [address] Performing Lab: [facility] [id number] [place] [address] .NIL - QUANTIFERON 0.04 [IU]/mL .MITOGEN-NIL 0.39 [IU]/mL .QUANTIFERON INDETERMINATE NEGATIVE .TB1-NIL <0.00 [IU]/mL .TB2-NIL <0.00 [IU]/mL Aug 14, 2024 06:59 AM [facility] MAGNESIUM Specimen Type: PLASMA Comment: No hemolysis noted. Ordering Provider: SILVIA REDDY Report Released Date/Time: Aug 11, 2024 03:58 PM Reporting Lab: [facility] [place] [phone] Performing Lab: [facility] [address] MAGNESIUM 1.9 mg/dL 1.6-2.6 Aug 14, 2024 06:59 AM [facility] B12 Specimen Type: SERUM No comment entered. Ordering Provider: SILVIA REDDY Report Released Date/Time: Aug 11, 2024 03:58 PM Reporting Lab: [facility] [address] Performing Lab: [facility] [address] B12 757 pg/mL 213-816 Aug 14, 2024 06:59 AM [facility] FOLATE (STL-MA) Specimen Type: SERUM No comment entered. Ordering Provider: SILVIA REDDY Report Released Date/Time: Aug 11, 2024 03:58 PM Reporting Lab: [facility] [address] Performing Lab: [facility] [address] FOLATE (STL-MA) 6.8 ng/mL L 7-20 Aug 14, 2024 06:59 AM [facility] VITAMIN D, 25-HYDROXY Specimen Type: SERUM No comment entered. Ordering Provider: SILVIA REDDY Report Released Date/Time: Aug 11, 2024 03:58 PM Reporting Lab: [facility] [phone] Performing Lab: [facility] [phone] VITAMIN D, 25-HYDROXY 8.9 ng/mL L 30-96 Aug 14, 2024 06:59 AM [facility] COMPREHENSIVE METABOLIC PANEL Specimen Type: PLASMA Comment: No hemolysis noted. Ordering Provider: SILVIA REDDY Report Released Date/Time: Aug 11, 2024 03:58 PM Reporting Lab: [facility] [phone] Performing Lab: [facility] [phone] CREATININE 0.75 mg/dL 0.70-1.30 UREA NITROGEN 13.6 [...] 95.88 >60 Aug 14, 2024 06:59 AM [facility] CBC Specimen Type: BLOOD No comment entered. Ordering Provider: SILVIA REDDY Report Released Date/Time: Aug 11, 2024 03:58 PM Reporting Lab: [facility] [phone] Performing Lab: [facility] [phone] WBC 4.1 10*3/uL 3.6-11.2 RBC 3.20 10*6/uL [...] 10*3/uL 0.00-0.20 Aug 14, 2024 05:08 AM [facility] GLUCOSE,BLOOD-poct (STL) Specimen Type: BLOOD Comment: Test Performed by: [id number] Meter #: [id number] Ordering Provider: SILVIA REDDY Report Released Date/Time: Aug 14, 2024 05:52 AM Reporting Lab: [facility] [address] Performing Lab: [facility] [address] GLUCOSE,BLOOD- poct (STL) 135 mg/dL H 72-99 Aug 13, 2024 04:27 PM [facility] GLUCOSE,BLOOD-poct (STL) Specimen Type: BLOOD Comment: Test Performed by: [id number] Meter #: [id number] Ordering Provider: SILVIA REDDY Report Released Date/Time: Aug 13, 2024 04:41 PM Reporting Lab: [facility] [address] Performing Lab: [facility] [address] GLUCOSE,BLOOD- poct (STL) 181 mg/dL H -Aug 13, 2024 11:33 AM [facility] GLUCOSE,BLOOD-poct (STL) Specimen Type: BLOOD Comment: Test Performed by: [id number] Meter #: [id number] Ordering Provider: SILVIA REDDY Report Released Date/Time: Aug 13, 2024 03:55 PM Reporting Lab: [facility] [address] Performing Lab: [facility] [place] [address] GLUCOSE,BLOOD- poct (STL) 140 mg/dL H Aug 13, 2024 05:54 AM [facility] GLUCOSE,BLOOD-poct (STL) Specimen Type: BLOOD Comment: Test Performed by: [id number] Meter #: [id number] Ordering Provider: SILVIA REDDY Report Released Date/Time: Aug 13, 2024 06:20 AM Reporting Lab: [facility] [address] Performing Lab: [facility] [address] GLUCOSE,BLOOD- poct (STL) 112 mg/dL H Aug 12, 2024 04:35 PM [facility] GLUCOSE,BLOOD-poct (STL) Specimen Type: BLOOD Comment: Test Performed by: [id number] Meter #: [id number] Ordering Provider: SILVIA REDDY Report Released Date/Time: Aug 12, 2024 04:47 PM Reporting Lab: [facility] [address] Performing Lab: [facility] [address] GLUCOSE,BLOOD- poct (STL) 128 mg/dL H 72-99 Aug 12, 2024 11:26 AM [facility] GLUCOSE,BLOOD-poct (STL) Specimen Type: BLOOD Comment: Test Performed by: [id number] Meter #: [id number] Ordering Provider: SILVIA REDDY Report Released Date/Time: Aug 12, 2024 11:45 AM Reporting Lab: [facility] [address] Performing Lab: [facility] [place] [address] GLUCOSE,BLOOD- poct (STL) 188 mg/dL H -Aug 12, 2024 06:13 AM [facility] GLUCOSE,BLOOD-poct (STL) Specimen Type: BLOOD Comment: Test Performed by: [id number] Meter #: [id number] Ordering Provider: SILVIA REDDY Report Released Date/Time: Aug 12, 2024 06:25 AM Reporting Lab: [facility] [address] Performing Lab: [facility] [address] GLUCOSE,BLOOD- poct (STL) 116 mg/dL H 72-99 Aug 11, 2024 04:10 PM [facility] GLUCOSE,BLOOD-poct (STL) Specimen Type: BLOOD Comment: Test Performed by: [id number] Meter #: [id number] Ordering Provider: SILVIA REDDY Report Released Date/Time: Aug 11, 2024 04:27 PM Reporting Lab: [facility] [place] [address] Performing Lab: [facility] [place] [address] GLUCOSE,BLOOD- poct (STL) 184 mg/dL H 72-99 Aug 11, 2024 01:44 PM [facility] MRSA SURVL NARES DNA [...] Aug 11, 2024 02:03 PM Reporting Lab: [address] [address] Performing Lab: [address] [address] MRSA SURVL NARES DNA Negative Negative Vital Signs: All taken on the encounter date This section contains inpatient and outpatient Vital Signs collected on the date of the Encounter. Date/Time Temperature Pulse Blood Pressure Respiratory Rate SP02 Pain Height Weight Body Mass Index Source Aug 22, 2024 07:17 PM 98.1 74 117/73 20 95 [facility] Aug 22, 2024 10:30 AM 98.1 55 104/61 18 96 [facility] Aug 22, 2024 05:18 AM 97.9 76 120/77 20 95 [facility] Advance Directives: All historical and [...] 2017 [employer] [facility] DISCUSSION [facility]
--- OUTSIDE RECORDS SUMMARY | 2024-11-17 04:10 | XMS_ITS | Encounter Summary ---
Author Name [facility] [place] [facility] [place] [facility] [place] Address [address] [place] [address] Care Team Providers Care Cooker Meal Name Role Phone MANUEL BAIRD Primary Care [...] PART A Apr 08, 2017 PART A [id number] ASHLEY WALKER PATIENT Selected Encounter This section includes the information on record at [place] for the Encounter. Date/Time Encounter Type Encounter Description Reason Pro vider Source Aug 23, 2024 09:30 AM Inpatient Visit OCCUPATIONAL THERAPY JOAN MENDEZ Encounter Template Text not used by VA [...] 20 appointments. The data comes from all [facility]. Appointment Date/Time Appointment Type Appointme nt Facility Name Aug 24, 2024 10:00 AM AMBULATORY - MEDICINE [facility] Aug 24, 2024 10:30 AM AMBULATORY - MEDICINE [facility] Aug 30, 2024 09:30 AM [facility]BULATORY MEDICINE [facility] Aug 31, 2024 01:00 PM AMBULATORY - SURGERY [facility] Sep 21, 2024 01:30 PM AMBULATORY - MEDICINE [facility] Sep 22, 2024 11:00 AM AMBULATORY - MEDICINE [facility] Sep 29, 2024 12:30 PM AMBULATORY - MEDICINE [facility] Oct 02, 2024 09:30 AM AMBULATORY - MEDICINE [facility] Nov 20, 2024 10:30 AM AMBULATORY - SURGERY [facility] Nov 21, 2024 10:00 AM AMBULATORY - NONE [facility] Dec 11, 2024 10:30 AM AMBULATORY - MEDICINE [facility] Active, Pending, and Scheduled Orders This section includes a listing of several types of active, pending, and scheduled orders, including clinic medications orders, diagnostic test orders, procedure orders and consult orders; where the start date of the order is 45 days before the date of the Encounter or 45 days after the date of theEncounter. The data comes from all [facility]. Test Date/Time Test Type Test Details Facility Name Aug 02, 2024 12:00 AM Laboratory - Chemistry Order CBC BLOOD STAT SP [facility] Aug 02, 2024 12:00 AM Laboratory - Chemistry Order COMPREHENSIVE METABOLIC PANEL GREEN LI/HEP BLD/PLAS PLASMA SP [facility] Aug 17, 2024 03:47 PM Consult Order [facility] Cons Bedside [facility] Lab Results: +/- 30 [...] 2024 08:21 AM [facility] CBC Specimen Type: BLOOD No comment entered. Ordering Provider: SILVIA REDDY Report Released Date/Time: Aug 22, 2024 11:19 AM Reporting Lab: [facility] [facility] [address] Performing Lab: [facility] [address] WBC 4.0 10*3/uL 3.6-11.2 RBC 3.65 10*6/uL [...] 10*3/uL 0.00-0.20 Aug 23, 2024 08:21 AM [facility] MAGNESIUM Specimen Type: PLASMA No comment entered. Ordering Provider: SILVIA REDDY Report Released Date/Time: Aug 22, 2024 11:26 AM Reporting Lab: [facility]1 [facility] [address] Performing Lab: [facility] [address] MAGNESIUM 1.8 mg/dL 1.6-2.6 Aug 23, 2024 05:12 AM [facility] GLUCOSE,BLOOD-poct (STL) Specimen Type: BLOOD Comment: Test Performed by: [id number] Meter #: [id number] Ordering Provider: SILVIA REDDY Report Released Date/Time: Aug 23, 2024 05:23 AM Reporting Lab: [facility] [address] Performing Lab: [facility] [address] GLUCOSE,BLOOD- poct (STL) 99 mg/dL 72-99 Aug 23, 2024 02:45 AM [facility] OCCULT BLOOD FIT X1 SCREEN Specimen Type: FECES No comment entered. Ordering Provider: SILVIA REDDY Report Released Date/Time: Aug 22, 2024 11:23 AM Reporting Lab: [facility] [address] [facility] [address] Performing Lab: [facility] [address] [place] [address] OCCULT BLOOD (FIT) #1 OF 1 Negative Negative Aug 22, 2024 07:30 PM [facility] OCCULT BLOOD FIT X1 SCREEN Specimen Type: FECES No comment entered. Ordering Provider: SILVIA REDDY Report Released Date/Time: Aug 22, 2024 11:23 AM Reporting Lab: [facility] [address] [facility] [address] Performing Lab: [facility] [address] [facility] [address] OCCULT BLOOD (FIT) #1 OF 1 Negative Negative Aug 22, 2024 06:15 PM [facility] OCCULT BLOOD FIT X1 SCREEN Specimen Type: FECES No comment entered. Ordering Provider: SILVIA REDDY Report Released Date/Time: Aug 22, 2024 11:23 AM Reporting Lab: [facility] [address] [facility] [address] Performing Lab: [place] [address] [facility] [address] OCCULT BLOOD (FIT) #1 OF 1 Negative Negative Aug 22, 2024 04:24 PM [facility] GLUCOSE,BLOOD-poct (STL) Specimen Type: BLOOD Comment: Test Performed by: [id number] Meter #: [id number] Ordering Provider: SILVIA REDDY Report Released Date/Time: Aug 22, 2024 04:36 PM Reporting Lab: [facility] [address] Performing Lab: [facility] #[facility] [address] GLUCOSE,BLOOD- poct (STL) 176 mg/dL H -Aug 22, 2024 04:23 PM [facility] GLUCOSE,BLOOD-poct (STL) Specimen Type: BLOOD Comment: Test Performed by: [id number] Meter #: [id number] Ordering Provider: SILVIA REDDY Report Released Date/Time: Aug 22, 2024 04:36 PM Reporting Lab: [facility] [address] Performing Lab: [facility] [facility] [address] GLUCOSE,BLOOD- poct (STL) 221 mg/dL H -Aug 22, 2024 11:15 AM [facility] GLUCOSE,BLOOD-poct (STL) Specimen Type: BLOOD Comment: Test Performed by: [id number] Meter #: [id number] Ordering Provider: SILVIA REDDY Report Released Date/Time: Aug 22, 2024 11:27 AM Reporting Lab: [facility] [address] Performing Lab: [facility] [address] GLUCOSE,BLOOD- poct (STL) 140 mg/dL H 72-Aug 22, 2024 08:[address] [facility] CBC Specimen Type: BLOOD No comment entered. Ordering Provider: SILVIA REDDY Report Released Date/Time: Aug 17, 2024 01:18 PM Reporting Lab: [facility] [address] Performing Lab: [facility] [address] WBC 3.5 10*3/uL L 3.6-11.2 RBC 3.23 [...] NRBC% 0 Aug 22, 2024 08:03 AM [facility] COMPREHENSIVE METABOLIC PANEL Specimen Type: PLASMA Comment: No hemolysis noted. Ordering Provider: SILVIA REDDY Report Released Date/Time: Aug 17, 2024 01:18 PM Reporting Lab: [facility] [address] [facility] [address] Performing Lab: [facility] [address] [facility] [address] CREATININE 0.80 mg/dL 0.7-1.3 UREA NITROGEN 9.7 [...] 08:03 AM [facility] FERRITIN Specimen Type: SERUM No comment entered. Ordering Provider: JUDIT PERKINS Report Released Date/Time: Aug 18, 2024 11:01 AM Reporting Lab: [address] [address] Performing Lab: [facility] [address] [facility] [address] FERRITIN 79.50 ng/mL 22-275 Aug 22, 2024 08:03 AM [facility] IRON/TIBC PROFILE Specimen Type: SERUM No comment entered. Ordering Provider: JUDIT PERKINS Report Released Date/Time: Aug 18, 2024 11:01 AM Reporting Lab: [facility] [address] [facility] [address] Performing Lab: [address] [address] TIBC 283 ug/dL 250-450 TRANSFERRIN 226 mg/dL 163-344 IRON SATURATION 7 L 20-50 IRON 19 ug/dL L 65-175 Aug 22, 2024 08:03 AM [facility] B12 Specimen Type: SERUM No comment entered. Ordering Provider: JUDIT PERKINS Report Released Date/Time: Aug 18, 2024 11:01 AM Reporting Lab: [facility]1 [facility] [address] Performing Lab: [facility] [address] B12 631 pg/mL 213-816 Aug 22, 2024 05:03 AM [facility] GLUCOSE,BLOOD-poct (STL) Specimen Type: BLOOD Comment: Test Performed by: [id number] Meter #: [id number] Ordering Provider: SILVIA REDDY Report Released Date/Time: Aug 22, 2024 06:17 AM Reporting Lab: [facility] #1 [facility] [address] Performing Lab: [facility] #1 [facility] [address] GLUCOSE,BLOOD- poct (STL) 170 mg/dL H 72-Aug 21, 2024 04:32 PM [facility] GLUCOSE,BLOOD-poct (STL) Specimen Type: BLOOD Comment: Test Performed by: [id number] Meter #: [id number] Ordering Provider: SILVIA REDDY Report Released Date/Time: Aug 21, 2024 04:49 PM Reporting Lab: [facility] [address] Performing Lab: [facility] #1 [facility] [address] GLUCOSE,BLOOD- poct (STL) 169 mg/dL H -Aug 21, 2024 11:53 AM [facility] GLUCOSE,BLOOD-poct (STL) Specimen Type: BLOOD Comment: Test Performed by: [id number] Meter #: [id number] Ordering Provider: SILVIA REDDY Report Released Date/Time: Aug 21, 2024 12:11 PM Reporting Lab: [facility] #1 [facility] [address] Performing Lab: [facility] #1 [facility] [address] GLUCOSE,BLOOD- poct (STL) 149 mg/dL H 72-Aug 21, 2024 05:10 AM [facility] GLUCOSE,BLOOD-poct (STL) Specimen Type: BLOOD Comment: Test Performed by: [id number] Meter #: [id number] Ordering Provider: SILVIA REDDY Report Released Date/Time: Aug 21, 2024 05:27 AM Reporting Lab: [facility] #1 [facility] [address] Performing Lab: [facility] #1 [facility] [address] GLUCOSE,BLOOD- poct (STL) 118 mg/dL H 72-Aug 20, 2024 04:38 PM [facility] GLUCOSE,BLOOD-poct (STL) Specimen Type: BLOOD Comment: Test Performed by: [id number] Meter #: [id number] Ordering Provider: SILVIA REDDY Report Released Date/Time: Aug 21, 2024 01:55 AM Reporting Lab: [facility] #1 [facility] [address] Performing Lab: [facility] #1 [place] [address] GLUCOSE,BLOOD- poct (STL) 169 mg/dL H -Aug 20, 2024 04:36 PM [facility] GLUCOSE,BLOOD-poct (STL) Specimen Type: BLOOD Comment: Test Performed by: [id number] Meter #: [id number] Ordering Provider: SILVIA REDDY Report Released Date/Time: Aug 21, 2024 01:55 AM Reporting Lab: [facility] #1 [facility] [address] Performing Lab: [facility] #1 [facility] [address] GLUCOSE,BLOOD- poct (STL) 395 mg/dL H 72-Aug 20, 2024 11:45 AM [facility] GLUCOSE,BLOOD-poct (STL) Specimen Type: BLOOD Comment: Test Performed by: [id number] Meter #: [id number] Ordering Provider: SILVIA REDDY Report Released Date/Time: Aug 20, 2024 11:56 AM Reporting Lab: [facility] #1 [place] [address] Performing Lab: [facility] [address] GLUCOSE,BLOOD- poct (STL) 169 mg/dL H -Aug 20, 2024 05:06 AM [facility] GLUCOSE,BLOOD-poct (STL) Specimen Type: BLOOD Comment: Test Performed by: [id number] Meter #: [id number] Ordering Provider: SILVIA REDDY Report Released Date/Time: Aug 20, 2024 06:05 AM Reporting Lab: [facility] [facility] [address] Performing Lab: [facility] #[address] [facility] [address] GLUCOSE,BLOOD- poct (STL) 115 mg/dL H -Aug 19, 2024 04:23 PM [facility] GLUCOSE,BLOOD-poct (STL) Specimen Type: BLOOD Comment: Test Performed by: [id number] Meter #: [id number] Ordering Provider: SILVIA REDDY Report Released Date/Time: Aug 19, 2024 05:54 PM Reporting Lab: [facility] [facility] [address] Performing Lab: [facility] #[address] [facility] [address] GLUCOSE,BLOOD- poct (STL) 137 mg/dL H -Aug 19, 2024 11:28 AM [facility] GLUCOSE,BLOOD-poct (STL) Specimen Type: BLOOD Comment: Test Performed by: [id number] Meter #: [id number] Ordering Provider: SILVIA REDDY Report Released Date/Time: Aug 19, 2024 11:51 AM Reporting Lab: [facility]1 [facility] [address] Performing Lab: [facility] #[facility] [address] GLUCOSE,BLOOD- poct (STL) 190 mg/dL H Aug 19, 2024 05:21 AM [facility] GLUCOSE,BLOOD-poct (STL) Specimen Type: BLOOD Comment: Test Performed by: [id number] Meter #: [id number] Ordering Provider: SILVIA REDDY Report Released Date/Time: Aug 19, 2024 05:56 AM Reporting Lab: [facility] #1 [facility] [address] Performing Lab: [facility] #1 [facility] [address] GLUCOSE,BLOOD- poct (STL) 130 mg/dL H Aug 18, 2024 04:49 PM [facility] GLUCOSE,BLOOD-poct (STL) Specimen Type: BLOOD Comment: Test Performed by: [id number] Meter #: [id number] Ordering Provider: SILVIA REDDY Report Released Date/Time: Aug 18, 2024 05:01 PM Reporting Lab: [facility]1 [facility] [address] Performing Lab: [facility] #1 [facility] [address] GLUCOSE,BLOOD- poct (STL) 129 mg/dL H Aug 18, 2024 11:23 AM [facility] GLUCOSE,BLOOD-poct (STL) Specimen Type: BLOOD Comment: Test Performed by: [id number] Meter #: [id number] Ordering Provider: SILVIA REDDY Report Released Date/Time: Aug 18, 2024 11:41 AM Reporting Lab: [facility] #1 [facility] [address] Performing Lab: [facility] #1 [facility] [address] GLUCOSE,BLOOD- poct (STL) 180 mg/dL H Aug 18, 2024 05:08 AM [facility] GLUCOSE,BLOOD-poct (STL) Specimen Type: BLOOD Comment: Test Performed by: [id number] Meter #: [id number] Ordering Provider: SILVIA REDDY Report Released Date/Time: Aug 18, 2024 05:31 AM Reporting Lab: [facility] [address] Performing Lab: [facility] #1 [facility] [address] GLUCOSE,BLOOD- poct (STL) 127 mg/dL H -Aug 17, 2024 07:32 PM [facility] GLUCOSE,BLOOD-poct (STL) Specimen Type: BLOOD Comment: Test Performed by: [id number] Meter #: [id number] Ordering Provider: SILVIA REDDY Report Released Date/Time: Aug 17, 2024 07:59 PM Reporting Lab: [facility] #1 [facility] [address] Performing Lab: [facility] #1 [facility] [address] GLUCOSE,BLOOD- poct (STL) 154 mg/dL H -Aug 17, 2024 04:24 PM [facility] GLUCOSE,BLOOD-poct (STL) Specimen Type: BLOOD Comment: Test Performed by: [id number] Meter #: [id number] Ordering Provider: SILVIA REDDY Report Released Date/Time: Aug 17, 2024 04:35 PM Reporting Lab: [facility] #1 [facility] [address] Performing Lab: [facility] #1 [facility] [address] GLUCOSE,BLOOD- poct (STL) 178 mg/dL H -Aug 17, 2024 05:09 AM [facility] GLUCOSE,BLOOD-poct (STL) Specimen Type: BLOOD Comment: Test Performed by: [id number] Meter #: [id number] Ordering Provider: SILVIA REDDY Report Released Date/Time: Aug 17, 2024 05:54 AM Reporting Lab: [facility] #[address] [place] [address] Performing Lab: [facility] #1 [facility] [address] GLUCOSE,BLOOD- poct (STL) 124 mg/dL H -Aug 16, 2024 07:40 PM [facility] GLUCOSE,BLOOD-poct (STL) Specimen Type: BLOOD Comment: Test Performed by: [id number] Meter #: [id number] Ordering Provider: SILVIA REDDY Report Released Date/Time: Aug 16, 2024 08:28 PM Reporting Lab: [facility]1 [facility] [address] Performing Lab: [facility] #[facility] [address] GLUCOSE,BLOOD- poct (STL) 144 mg/dL H Aug 16, 2024 04:19 PM [facility] GLUCOSE,BLOOD-poct (STL) Specimen Type: BLOOD Comment: Test Performed by: [id number] Meter #: [id number] Ordering Provider: SILVIA REDDY Report Released Date/Time: Aug 16, 2024 04:45 PM Reporting Lab: [facility] [address] Performing Lab: [facility] #[facility] [address] GLUCOSE,BLOOD- poct (STL) 138 mg/dL H Aug 16, 2024 11:52 AM [facility] GLUCOSE,BLOOD-poct (STL) Specimen Type: BLOOD Comment: Test Performed by: [id number] Meter #: [id number] Ordering Provider: SILVIA REDDY Report Released Date/Time: Aug 16, 2024 12:04 PM Reporting Lab: [facility] [address] Performing Lab: [facility] [address] GLUCOSE,BLOOD- poct (STL) 135 mg/dL H Aug 16, 2024 05:24 AM [facility] GLUCOSE,BLOOD-poct (STL) Specimen Type: BLOOD Comment: Test Performed by: [id number] Meter #: [id number] Ordering Provider: SILVIA REDDY Report Released Date/Time: Aug 16, 2024 05:38 AM Reporting Lab: [facility] [address] Performing Lab: [facility] #[facility] [address] GLUCOSE,BLOOD- poct (STL) 151 mg/dL H Aug 15, 2024 07:31 PM [facility] GLUCOSE,BLOOD-poct (STL) Specimen Type: BLOOD Comment: Test Performed by: [id number] Meter #: [id number] Ordering Provider: SILVIA REDDY Report Released Date/Time: Aug 15, 2024 08:07 PM Reporting Lab: [facility] [address] Performing Lab: [facility] #[facility] [address] GLUCOSE,BLOOD- poct (STL) 173 mg/dL H Aug 15, 2024 04:18 PM [facility] GLUCOSE,BLOOD-poct (STL) Specimen Type: BLOOD Comment: Test Performed by: [id number] Meter #: [id number] Ordering Provider: SILVIA REDDY Report Released Date/Time: Aug 15, 2024 04:59 PM Reporting Lab: [facility] [address] Performing Lab: [facility] #[facility] [address] GLUCOSE,BLOOD- poct (STL) 136 mg/dL H Aug 15, 2024 04:16 PM [facility] GLUCOSE,BLOOD-poct (STL) Specimen Type: BLOOD Comment: Test Performed by: [id number] Meter #: [id number] Ordering Provider: SILVIA REDDY Report Released Date/Time: Aug 15, 2024 04:59 PM Reporting Lab: [facility] [address] Performing Lab: [facility] #[facility] [address] GLUCOSE,BLOOD- poct (STL) 194 mg/dL H -Aug 15, 2024 11:39 AM [facility] GLUCOSE,BLOOD-poct (STL) Specimen Type: BLOOD Comment: Test Performed by: [id number] Meter #: [id number] Ordering Provider: SILVIA REDDY Report Released Date/Time: Aug 15, 2024 12:00 PM Reporting Lab: [facility] [address] Performing Lab: [facility] [address] GLUCOSE,BLOOD- poct (STL) 127 mg/dL H -Aug 15, 2024 05:07 AM [facility] GLUCOSE,BLOOD-poct (STL) Specimen Type: BLOOD Comment: Test Performed by: [id number] Meter #: [id number] Ordering Provider: SILVIA REDDY Report Released Date/Time: Aug 15, 2024 06:14 AM Reporting Lab: [facility] [address] Performing Lab: [facility] #[facility] [address] GLUCOSE,BLOOD- poct (STL) 151 mg/dL H -Aug 14, 2024 04:22 PM [facility] GLUCOSE,BLOOD-poct (STL) Specimen Type: BLOOD Comment: Test Performed by: [id number] Meter #: [id number] Ordering Provider: SILVIA REDDY Report Released Date/Time: Aug 14, 2024 04:52 PM Reporting Lab: [facility] [place] [address] Performing Lab: [facility] [address] GLUCOSE,BLOOD- poct (STL) 129 mg/dL H 72-99 Aug 14, 2024 11:21 AM [facility] GLUCOSE,BLOOD-poct (STL) Specimen Type: BLOOD Comment: Test Performed by: [id number] Meter #: [id number] Ordering Provider: SILVIA REDDY Report Released Date/Time: Aug 14, 2024 11:37 AM Reporting Lab: [facility] [address] Performing Lab: [facility] [address] GLUCOSE,BLOOD- poct (STL) 135 mg/dL H 72-99 Aug 14, 2024 06:59 AM [facility] QUANTIFERON-TB,4 TUBE Specimen Type: BLOOD Comment: [...] For additional information, please refer to http://education. Peatix/faq/WRQ235 (This link is being provided for information/ educational purposes only.) Test Performed by [employer], Telly [facility], [address] [place] [address] Tommie Garcia M.D., Ph.D., Director of Laboratories , [facility] [id number] Ordering Provider: SILVIA REDDY Report Released Date/Time: Aug 11, 2024 03:58 PM Reporting Lab: [facility] [address] [facility] [address] Performing Lab: [facility] [id number] [place] [address] .NIL - QUANTIFERON 0.04 [IU]/mL .MITOGEN-NIL 0.39 [IU]/mL .QUANTIFERON INDETERMINATE NEGATIVE .TB1-NIL <0.00 [IU]/mL .TB2-NIL <0.00 [IU]/mL Aug 14, 2024 06:59 AM [facility] MAGNESIUM Specimen Type: PLASMA Comment: No hemolysis noted. Ordering Provider: SILVIA REDDY Report Released Date/Time: Aug 11, 2024 03:58 PM Reporting Lab: [facility] [address] Performing Lab: [facility] [address] MAGNESIUM 1.9 mg/dL 1.6-2.6 Aug 14, 2024 06:59 AM [facility] VITAMIN D, 25-HYDROXY Specimen Type: SERUM No comment entered. Ordering Provider: SILVIA REDDY Report Released Date/Time: Aug 11, 2024 03:58 PM Reporting Lab: [facility] [address] Performing Lab: [facility] [address] VITAMIN D, 25-HYDROXY 8.9 ng/mL L 30-96 Aug 14, 2024 06:59 AM [facility] FOLATE (STL-MA) Specimen Type: SERUM No comment entered. Ordering Provider: SILVIA REDDY Report Released Date/Time: Aug 11, 2024 03:58 PM Reporting Lab: [facility] [place] [phone] Performing Lab: [facility] [address] FOLATE (STL-MA) 6.8 ng/mL L 7-20 Aug 14, 2024 06:59 AM [facility] B12 Specimen Type: SERUM No comment entered. Ordering Provider: SILVIA REDDY Report Released Date/Time: Aug 11, 2024 03:58 PM Reporting Lab: [facility] [address] Performing Lab: [facility] #[address] [place] [phone] B12 757 pg/mL 213-816 Aug 14, 2024 06:59 AM [facility] COMPREHENSIVE METABOLIC PANEL Specimen Type: PLASMA Comment: No hemolysis noted. Ordering Provider: SILVIA REDDY Report Released Date/Time: Aug 11, 2024 03:58 PM Reporting Lab: [facility] [address] Performing Lab: [facility] [address] CREATININE 0.75 mg/dL 0.70-1.30 UREA NITROGEN 13.6 [...] 95.88 >60 Aug 14, 2024 06:59 AM [facility] CBC Specimen Type: BLOOD No comment entered. Ordering Provider: SILVIA REDDY Report Released Date/Time: Aug 11, 2024 03:58 PM Reporting Lab: [facility] [address] Performing Lab: [facility] [address] WBC 4.1 10*3/uL 3.6-11.2 RBC 3.20 10*6/uL [...] 10*3/uL 0.00-0.20 Aug 14, 2024 05:08 AM [facility] GLUCOSE,BLOOD-poct (STL) Specimen Type: BLOOD Comment: Test Performed by: [id number] Meter #: [id number] Ordering Provider: SILVIA REDDY Report Released Date/Time: Aug 14, 2024 05:52 AM Reporting Lab: [facility] [address] Performing Lab: [facility] [address] GLUCOSE,BLOOD- poct (STL) 135 mg/dL H 72-99 Aug 13, 2024 04:27 PM [facility] GLUCOSE,BLOOD-poct (STL) Specimen Type: BLOOD Comment: Test Performed by: [id number] Meter #: [id number] Ordering Provider: SILVIA REDDY Report Released Date/Time: Aug 13, 2024 04:41 PM Reporting Lab: [facility] [address] Performing Lab: [facility] [address] GLUCOSE,BLOOD- poct (STL) 181 mg/dL H -Aug 13, 2024 11:33 AM [facility] GLUCOSE,BLOOD-poct (STL) Specimen Type: BLOOD Comment: Test Performed by: [id number] Meter #: [id number] Ordering Provider: SILVIA REDDY Report Released Date/Time: Aug 13, 2024 03:55 PM Reporting Lab: [facility] [address] Performing Lab: [facility] [place] [address] GLUCOSE,BLOOD- poct (STL) 140 mg/dL H Aug 13, 2024 05:54 AM [facility] GLUCOSE,BLOOD-poct (STL) Specimen Type: BLOOD Comment: Test Performed by: [id number] Meter #: [id number] Ordering Provider: SILVIA REDDY Report Released Date/Time: Aug 13, 2024 06:20 AM Reporting Lab: [facility] [address] Performing Lab: [facility] [address] GLUCOSE,BLOOD- poct (STL) 112 mg/dL H Aug 12, 2024 04:35 PM [facility] GLUCOSE,BLOOD-poct (STL) Specimen Type: BLOOD Comment: Test Performed by: [id number] Meter #: [id number] Ordering Provider: SILVIA REDDY Report Released Date/Time: Aug 12, 2024 04:47 PM Reporting Lab: [facility] [address] Performing Lab: [facility] [address] GLUCOSE,BLOOD- poct (STL) 128 mg/dL H 72-99 Aug 12, 2024 11:26 AM [facility] GLUCOSE,BLOOD-poct (STL) Specimen Type: BLOOD Comment: Test Performed by: [id number] Meter #: [id number] Ordering Provider: SILVIA REDDY Report Released Date/Time: Aug 12, 2024 11:45 AM Reporting Lab: [facility] [address] Performing Lab: [facility] [address] GLUCOSE,BLOOD- poct (STL) 188 mg/dL H 72-Aug 12, 2024 06:13 AM [facility] GLUCOSE,BLOOD-poct (STL) Specimen Type: BLOOD Comment: Test Performed by: [id number] Meter #: [id number] Ordering Provider: SILVIA REDDY Report Released Date/Time: Aug 12, 2024 06:25 AM Reporting Lab: [facility] [address] Performing Lab: [facility] [address] GLUCOSE,BLOOD- poct (STL) 116 mg/dL H 72-99 Aug 11, 2024 04:10 PM [facility] GLUCOSE,BLOOD-poct (STL) Specimen Type: BLOOD Comment: Test Performed by: [id number] Meter #: [id number] Ordering Provider: SILVIA REDDY Report Released Date/Time: Aug 11, 2024 04:27 PM Reporting Lab: [facility] [place] [address] Performing Lab: [facility] [address] GLUCOSE,BLOOD- poct (STL) 184 mg/dL H 72-99 Aug 11, 2024 01:44 PM [facility] MRSA SURVL NARES DNA Specimen Type: [...] Aug 11, 2024 02:03 PM Reporting Lab: [address] [address] Performing Lab: [address] [address] MRSA SURVL NARES DNA Negative Negative Social History: Smoking Status (Most current) and [...] 10:34 AM QUIT TOBACCO >7 YEARS AGO [facility] Tobacco Use History This section includes a history of the smoking, or tobacco-related health factors, that were collected on or before the date of the Encounter. The data comes from the [place] facility where the Encounter took place. Date/Time Smoking Status/Tobacco Use Comment Juan acmichael Sep 30, 2015 10:12 AM QUIT TOBACCO >7 YEARS AGO [facility] Oct 29, 2014 10:23 AM QUIT TOBACCO >7 YEARS AGO [facility] Dec 27, 2013 01:27 PM QUIT TOBACCO >7 YEARS AGO [facility] Feb 24, 2013 02:01 PM LIFETIME NON-USER OF TOBACCO [facility] Feb 11, 2009 10:09 AM QUIT TOBACCO >7 YEARS AGO [facility] Oct 06, 2006 09:30 AM CURRENT NON-TOBACC O USER-HX OF USE [facility] Oct 06, 2006 09:30 AM TOBACCO TERMINATION STAGE [facility] Advance Directives: All historical [...] DIRECTIVE DISCUSSION ERICK BARDALES [facility] Encounter Notes: All associated encounter notes This section contains the clinical notes associated to the Encounter. Date/Time Encounter Note(s) Provider Source Aug 23, 2024 09:31 AM OCCUPATIONAL THERA PY DISCHARGE NOTE: LOCAL TITLE: OT DISCHARGE [facility] STANDARD TITLE: OCCUPATIONAL THERAPY DISCHARGE NOTE DATE OF NOTE: AUG 23, 2024@09:31 ENTRY DATE: AUG 23, 2024@09:31:09 AUTHOR: JOAN MENDEZ EXP COSIGNER: URGENCY: STATUS: COMPLETED Discharge Occupational Therapy Note Requesting Provider: Dx: Atherosclerosis of Autologous Artery Coronary Artery Bypass Graft(s) with unspecified Angina Pectoris(ICD-10-CM I25.729) Reason for request: Eval and tx Precautions: Cardiac prec s/p CABG-including no lifting,push/pull >10# x 4 weeks; Falls Initial date of OT eval: 08/14/24 Lives with: Son Support available: Son as caregiver Previous Self Care level: Indep with ADL House Type: 1 level with basement Steps: 2-3 ANALIA Toilet: SHT Shower: tub/shower without DME Current Equipment: None reported Ambulation device: 4ww, cane Housekeeping: reports shares with son Shopping: Indep Meal prep: Reports his son plans to cook from now on Driving: Indep Medication management: Indep History of Falls: yes, in a parking lot, not in the home for a long time Abbreviations: WFL=Within Functional Limits; (I)=Independent; A=Assist; A/PROM=Act.Rom/Passive ROM; STR=Strength; SBA=Stand by Assist; NT=Not Tested; VC=Verbal Cues; MANAGER MULTICULTURAL=Prior To Admission; C[facility]; CGA=Contact Guard Assist Patient goals are: being able to walk, increased balance SUBJECTIVE: My son is going to cook for me for a while. Pain: None reported OBJECTIVE: UE DOMINANCE: [x] RIGHT [] LEFT UE AROM: WNL within pacemaker precautions UE STRENGTH: deferred d/t precautions- at least 4/5 Hand A/PROM/Coordination/Burner Shaft: 4/5 Tone/Edema/other: None Endurance: Fair+ Balance: 5/5 [employer] Balance Scale 0 P performs 25% [...] 2 inches. Mental Status: A/O x 4 IRF-EJRO Section GG Self-Care and Mobility MALLOY: 6: Independent, 5: Setup or Cleanup Assistance. 4: Supervision or Touching Assistance. 3: Partial/Moderate Assistance. 2: Substantial/Maximal Assistance. 1: Dependent. 07: Refused. 09: Not Applicable?Did not perform this activity prior. 10: Not Attempted?Due to environmental limitations. 88: Not Attempted?Due to medical condition/safety concerns. SELF-CARE Initial D/C Goal Eatin 6 6 Oral Hygiene: 10 6 6 Toilet Hygiene: 6 6 6 Wash Upper Body: 10 6 6 Shower/Bathe Self: 10 6 6 UB Dressin 6 6 LB Dressin 6 6 Garrett/Doff Footwear: 6 6 6 MOBILITY Roll L+R: 6 6 6 Sit to Lyin 6 6 Lying to Sitting EOB: 6 6 6 Sit to Stand: 5 6 6 Chair/Bed to Chair Tx: 5 6 6 Toilet Transfer: 5 6 6 Tub transfer: (I) with grab bars and shower chair stepping in/out. Vet declines bench reporting space too small. 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 Veterans response to treatment: Vet participated well in therapy. Ready for d/c home with help of son who resides with him. Functional status/progress towards goals: SHORT TERM GOALS: 1. [place] will demo UB drsg with Indep - MET 2. Vet will demo LB drsg with Indep and AE prn. - MET 3. Vet will demo toilet transfer with Mod I and DME prn. - MET 4. Vet will demo bed->chair transfer with Mod I and DME prn. - MET 5. Vet will demo Mod I for bathing tasks - MET per nursing 6. Vet will demo Mod I for tub transfer - MET 7. Vet will participate in Short Blessed Test - NOT MET LTG's were deferred. Barriers: None Rehab Potential: Fair Discharge Recommendation: Home with son Follow up recommendations: None PLAN: D/C from OT at this time. Vet seen by OT 08/14/24-08/22/24. No other f/u at this time needed. All equipment needs met. Learning Assessment: Patient/Caregiver appeared ready for instruction (good eye contact, appropriate questions, active participation, etc.) Person(s) who received education: Patient Education Topic/Teaching Needs: Equipment Use/Safety Rehabilitation and Habilitation Activities of Daily Living (ADLs) Methods used included: One-on-one: Teaching outcomes: Good level of understanding Comment: Able to explain malloy concepts Comment: Performs skill(s) effectively Comment: /shen/ [employer]/Julián Dowel Inserting Machine Operator Signed: 08/23/2024 09:54 Receipt Acknowledged By: 08/23/2024 11:09 /shen/ STEVEN JEFFERSON Occupational Therapist JOAN MENDEZ [facility]
--- OUTSIDE RECORDS SUMMARY | 2024-11-17 04:10 | XMS_ITS ---
OR DAILY HOSPITALIZATION DATA [facility] Encounter Summary Created on: November 16, 2024 CHET WALKER : 1950 Sex: Male Author Name [facility] Organization [facility]) Address [address] [place] [address] Care Team Providers Care Director Law Enforcement Name Role Phone MANUEL BAIRD Primary Care [...] PART A Apr 08, 2017 PART A [id number] [phone] ASHLEY WALKER PATIENT Selected Encounter This section includes the information on record at OR for the Encounter. Date/Time Encounter Type Encounter Description Reason Pro vider Source Aug 23, 2024 09:36 AM Inpatient Visit DAILY HOSPITALIZATION DATA VICTORINA SHARPE Encounter Template Text not used by VA [...] appointments. The data comes from all [facility]. Appointment Date/Time Appointment Type Appointme [...] 21, 2024 10:00 AM AMBULATORY - NONE [facility] Dec 11, 2024 10:30 AM AMBULATORY [...] theEncounter. The data comes from all [facility]. Test Date/Time Test Type Test Details Facility Name Aug 02, 2024 12:00 AM Laboratory - Chemistry Order CBC BLOOD STAT SP [facility] Aug 02, 2024 12:00 AM Laboratory - Chemistry Order COMPREHENSIVE METABOLIC PANEL GREEN LI/HEP BLD/PLAS PLASMA SP [facility] Aug 17, 2024 03:47 PM Consult Order [facility] Cons Bedside [facility] [...] Lab: [facility] [address] Performing Lab: [facility] [address] MAGNESIUM 1.8 mg/dL 1.6-2.6 Aug 23, 2024 08:21 AM [facility] CBC Specimen Type: BLOOD No comment entered. Ordering Provider: SILVIA REDDY Report Released Date/Time: Aug 22, 2024 11:19 AM Reporting Lab: [facility] [address] Performing Lab: [facility]1 [facility] [address] WBC 4.0 10*3/uL 3.6-11.2 RBC 3.65 10*6/uL [...] Specimen Type: BLOOD Comment: Test Performed by: [id number] Meter #: [id number] Ordering Provider: SILVIA REDDY Report Released Date/Time: Aug 23, 2024 05:23 AM Reporting Lab: [facility] [address] Performing Lab: [facility] [address] GLUCOSE,BLOOD- poct (STL) 99 mg/dL 72-99 Aug 23, 2024 02:45 AM [facility] OCCULT BLOOD FIT X1 SCREEN Specimen Type: FECES No comment entered. Ordering Provider: SILVIA REDDY Report Released Date/Time: Aug 22, 2024 11:23 AM Reporting Lab: [address] [address] Performing Lab: [facility] [address] [place] [address] OCCULT BLOOD (FIT) #1 OF 1 Negative Negative Aug 22, 2024 07:30 PM [facility] OCCULT BLOOD FIT X1 SCREEN Specimen Type: FECES No comment entered. Ordering Provider: SILVIA REDDY Report Released Date/Time: Aug 22, 2024 11:23 AM Reporting Lab: [facility] [address] [place] [address] Performing Lab: [address] [address] OCCULT BLOOD (FIT) #1 OF 1 Negative Negative Aug 22, 2024 06:15 PM [facility] OCCULT BLOOD FIT X1 SCREEN Specimen Type: FECES No comment entered. Ordering Provider: SILVIA REDDY Report Released Date/Time: Aug 22, 2024 11:23 AM Reporting Lab: [address] [address] Performing Lab: [place] [address] [facility] [address] [address] [facility] [address] OCCULT BLOOD (FIT) #1 OF 1 Negative Negative Aug 22, 2024 04:24 PM [facility] GLUCOSE,BLOOD-poct (STL) Specimen Type: BLOOD Comment: Test Performed by: [id number] Meter #: [id number] Ordering Provider: SILVIA REDDY Report Released Date/Time: Aug 22, 2024 04:36 PM Reporting Lab: [facility] [address] Performing Lab: [facility] [address] GLUCOSE,BLOOD- poct (STL) 176 mg/dL H -Aug 22, 2024 04:23 PM [facility] GLUCOSE,BLOOD-poct (STL) Specimen Type: BLOOD Comment: Test Performed by: [id number] Meter #: [id number] Ordering Provider: SILVIA REDDY Report Released Date/Time: Aug 22, 2024 04:36 PM Reporting Lab: [facility] [address] Performing Lab: [facility] [address] GLUCOSE,BLOOD- poct (STL) 221 mg/dL H -Aug 22, 2024 11:15 AM [facility] GLUCOSE,BLOOD-poct (STL) Specimen Type: BLOOD Comment: Test Performed by: [id number] Meter #: [id number] Ordering Provider: SILVIA REDDY Report Released Date/Time: Aug 22, 2024 11:27 AM Reporting Lab: [facility]1 [facility] [address] Performing Lab: [facility] [address] GLUCOSE,BLOOD- poct (STL) 140 mg/dL H 72-Aug 22, 2024 08:[address] [facility] FERRITIN Specimen Type: SERUM No comment entered. Ordering Provider: JUDIT PERKINS Report Released Date/Time: Aug 18, 2024 11:01 AM Reporting Lab: [facility] [address] [facility] [address] Performing Lab: [facility] [address] [facility] [address] FERRITIN 79.50 ng/mL 22-275 Aug 22, 2024 08:03 AM [facility] IRON/TIBC PROFILE Specimen Type: SERUM No comment entered. Ordering Provider: JUDIT PERKINS Report Released Date/Time: Aug 18, 2024 11:01 AM Reporting Lab: [address] [address] Performing Lab: [address] [address] TIBC 283 ug/dL 250-450 TRANSFERRIN 226 mg/dL 163-344 IRON SATURATION 7 L 20-50 IRON 19 ug/dL L 65-175 Aug 22, 2024 08:03 AM [facility] B12 Specimen Type: SERUM No comment entered. Ordering Provider: JUDIT PERKINS Report Released Date/Time: Aug 18, 2024 11:01 AM Reporting Lab: [facility]1 [facility] [address] Performing Lab: [facility]1 [facility] [address] B12 631 pg/mL 213-816 Aug 22, 2024 08:03 AM [facility] COMPREHENSIVE METABOLIC PANEL Specimen Type: PLASMA Comment: No hemolysis noted. Ordering Provider: SILVIA REDDY Report Released Date/Time: Aug 17, 2024 01:18 PM Reporting Lab: [facility] [address] [facility] [address] Performing Lab: [address] [address] CREATININE 0.80 mg/dL 0.7-1.3 UREA NITROGEN 9.7 [...] Lab: [facility] [address] Performing Lab: [facility] [address] WBC 3.5 10*3/uL L 3.6-11.2 RBC 3.23 [...] NRBC% 0 Aug 22, 2024 05:03 AM [facility] GLUCOSE,BLOOD-poct (STL) Specimen Type: BLOOD Comment: Test Performed by: [id number] Meter #: [id number] Ordering Provider: SILVIA REDDY Report Released Date/Time: Aug 22, 2024 06:17 AM Reporting Lab: [facility] [address] Performing Lab: [facility] [address] GLUCOSE,BLOOD- poct (STL) 170 mg/dL H 72-Aug 21, 2024 04:32 PM [facility] GLUCOSE,BLOOD-poct (STL) Specimen Type: BLOOD Comment: Test Performed by: [id number] Meter #: [id number] Ordering Provider: SILVIA REDYD Report Released Date/Time: Aug 21, 2024 04:49 PM Reporting Lab: [facility] [address] Performing Lab: [facility] [address] GLUCOSE,BLOOD- poct (STL) 169 mg/dL H -Aug 21, 2024 11:53 AM [facility] GLUCOSE,BLOOD-poct (STL) Specimen Type: BLOOD Comment: Test Performed by: [id number] Meter #: [id number] Ordering Provider: SILVIA REDDY Report Released Date/Time: Aug 21, 2024 12:11 PM Reporting Lab: [facility] [address] Performing Lab: [facility] [address] GLUCOSE,BLOOD- poct (STL) 149 mg/dL H 72-99 Aug 21, 2024 05:10 AM [facility] GLUCOSE,BLOOD-poct (STL) Specimen Type: BLOOD Comment: Test Performed by: [id number] Meter #: [id number] Ordering Provider: SILVIA REDDY Report Released Date/Time: Aug 21, 2024 05:27 AM Reporting Lab: [facility] [place] [address] Performing Lab: [facility] [address] GLUCOSE,BLOOD- poct (STL) 118 mg/dL H 72-Aug 20, 2024 04:38 PM [facility] GLUCOSE,BLOOD-poct (STL) Specimen Type: BLOOD Comment: Test Performed by: [id number] Meter #: [id number] Ordering Provider: SILVIA REDDY Report Released Date/Time: Aug 21, 2024 01:55 AM Reporting Lab: [facility] [place] [address] Performing Lab: [facility] [place] [address] GLUCOSE,BLOOD- poct (STL) 169 mg/dL H -Aug 20, 2024 04:36 PM [facility] GLUCOSE,BLOOD-poct (STL) Specimen Type: BLOOD Comment: Test Performed by: [id number] Meter #: [id number] Ordering Provider: SILVIA REDDY Report Released Date/Time: Aug 21, 2024 01:55 AM Reporting Lab: [facility] [place] [address] Performing Lab: [facility] [place] [address] GLUCOSE,BLOOD- poct (STL) 395 mg/dL H 72-Aug 20, 2024 11:45 AM [facility] GLUCOSE,BLOOD-poct (STL) Specimen Type: BLOOD Comment: Test Performed by: [id number] Meter #: [id number] Ordering Provider: SILVIA REDDY Report Released Date/Time: Aug 20, 2024 11:56 AM Reporting Lab: [facility] Performing Lab: [facility]1 [facility] [address] GLUCOSE,BLOOD- poct (STL) 169 mg/dL H -Aug 20, 2024 05:06 AM [facility] GLUCOSE,BLOOD-poct (STL) Specimen Type: BLOOD Comment: Test Performed by: [id number] Meter #: [id number] Ordering Provider: SILVIA REDDY Report Released Date/Time: Aug 20, 2024 06:05 AM Reporting Lab: [facility]1 [facility] [address] Performing Lab: [facility] [address] GLUCOSE,BLOOD- poct (STL) 115 mg/dL H -Aug 19, 2024 04:23 PM [facility] GLUCOSE,BLOOD-poct (STL) Specimen Type: BLOOD Comment: Test Performed by: [id number] Meter #: [id number] Ordering Provider: SILVIA REDDY Report Released Date/Time: Aug 19, 2024 05:54 PM Reporting Lab: [facility]1 [facility] [address] Performing Lab: [facility]1 [facility] [address] GLUCOSE,BLOOD- poct (STL) 137 mg/dL H Aug 19, 2024 11:28 AM [facility] GLUCOSE,BLOOD-poct (STL) Specimen Type: BLOOD Comment: Test Performed by: [id number] Meter #: [id number] Ordering Provider: SILVIA REDDY Report Released Date/Time: Aug 19, 2024 11:51 AM Reporting Lab: [facility] [address] Performing Lab: [facility]1 [facility] [address] GLUCOSE,BLOOD- poct (STL) 190 mg/dL H Aug 19, 2024 05:21 AM [facility] GLUCOSE,BLOOD-poct (STL) Specimen Type: BLOOD Comment: Test Performed by: [id number] Meter #: [id number] Ordering Provider: SILVIA REDDY Report Released Date/Time: Aug 19, 2024 05:56 AM Reporting Lab: [facility] [address] Performing Lab: [facility] [address] GLUCOSE,BLOOD- poct (STL) 130 mg/dL H Aug 18, 2024 04:49 PM [facility] GLUCOSE,BLOOD-poct (STL) Specimen Type: BLOOD Comment: Test Performed by: [id number] Meter #: [id number] Ordering Provider: SILVIA REDDY Report Released Date/Time: Aug 18, 2024 05:01 PM Reporting Lab: [facility]1 [facility] [address] Performing Lab: [facility] [address] GLUCOSE,BLOOD- poct (STL) 129 mg/dL H Aug 18, 2024 11:23 AM [facility] GLUCOSE,BLOOD-poct (STL) Specimen Type: BLOOD Comment: Test Performed by: [id number] Meter #: [id number] Ordering Provider: SILVIA REDDY Report Released Date/Time: Aug 18, 2024 11:41 AM Reporting Lab: [facility] [address] Performing Lab: [facility] [address] GLUCOSE,BLOOD- poct (STL) 180 mg/dL H Aug 18, 2024 05:08 AM [facility] GLUCOSE,BLOOD-poct (STL) Specimen Type: BLOOD Comment: Test Performed by: [id number] Meter #: [id number] Ordering Provider: SILVIA REDDY Report Released Date/Time: Aug 18, 2024 05:31 AM Reporting Lab: [facility] [address] Performing Lab: [facility] [address] GLUCOSE,BLOOD- poct (STL) 127 mg/dL H -Aug 17, 2024 07:32 PM [facility] GLUCOSE,BLOOD-poct (STL) Specimen Type: BLOOD Comment: Test Performed by: [id number] Meter #: [id number] Ordering Provider: SILVIA REDDY Report Released Date/Time: Aug 17, 2024 07:59 PM Reporting Lab: [facility] [address] Performing Lab: [facility] [place] [address] GLUCOSE,BLOOD- poct (STL) 154 mg/dL H -Aug 17, 2024 04:24 PM [facility] GLUCOSE,BLOOD-poct (STL) Specimen Type: BLOOD Comment: Test Performed by: [id number] Meter #: [id number] Ordering Provider: SILVIA REDDY Report Released Date/Time: Aug 17, 2024 04:35 PM Reporting Lab: [facility] [address] Performing Lab: [facility] [address] GLUCOSE,BLOOD- poct (STL) 178 mg/dL H -Aug 17, 2024 05:09 AM [facility] GLUCOSE,BLOOD-poct (STL) Specimen Type: BLOOD Comment: Test Performed by: [id number] Meter #: [id number] Ordering Provider: SILVIA REDDY Report Released Date/Time: Aug 17, 2024 05:54 AM Reporting Lab: [facility] Performing Lab: [facility] [address] GLUCOSE,BLOOD- poct (STL) 124 mg/dL H -Aug 16, 2024 07:40 PM [facility] GLUCOSE,BLOOD-poct (STL) Specimen Type: BLOOD Comment: Test Performed by: [id number] Meter #: [id number] Ordering Provider: SILVIA REDDY Report Released Date/Time: Aug 16, 2024 08:28 PM Reporting Lab: [facility] [address] Performing Lab: [facility] [address] GLUCOSE,BLOOD- poct (STL) 144 mg/dL H Aug 16, 2024 04:19 PM [facility] GLUCOSE,BLOOD-poct (STL) Specimen Type: BLOOD Comment: Test Performed by: [id number] Meter #: [id number] Ordering Provider: SILVIA REDDY Report Released Date/Time: Aug 16, 2024 04:45 PM Reporting Lab: [facility] [address] Performing Lab: [facility] [address] GLUCOSE,BLOOD- poct (STL) 138 mg/dL H Aug 16, 2024 11:52 AM [facility] GLUCOSE,BLOOD-poct (STL) Specimen Type: BLOOD Comment: Test Performed by: [id number] Meter #: [id number] Ordering Provider: SILVIA REDDY Report Released Date/Time: Aug 16, 2024 12:04 PM Reporting Lab: [facility] [address] Performing Lab: [facility] [address] GLUCOSE,BLOOD- poct (STL) 135 mg/dL H Aug 16, 2024 05:24 AM [facility] GLUCOSE,BLOOD-poct (STL) Specimen Type: BLOOD Comment: Test Performed by: [id number] Meter #: [id number] Ordering Provider: SILVIA REDDY Report Released Date/Time: Aug 16, 2024 05:38 AM Reporting Lab: [facility] [address] Performing Lab: [facility] [address] GLUCOSE,BLOOD- poct (STL) 151 mg/dL H Aug 15, 2024 07:31 PM [facility] GLUCOSE,BLOOD-poct (STL) Specimen Type: BLOOD Comment: Test Performed by: [id number] Meter #: [id number] Ordering Provider: SILVIA REDDY Report Released Date/Time: Aug 15, 2024 08:07 PM Reporting Lab: [facility] [address] Performing Lab: [facility] [address] GLUCOSE,BLOOD- poct (STL) 173 mg/dL H Aug 15, 2024 04:18 PM [facility] GLUCOSE,BLOOD-poct (STL) Specimen Type: BLOOD Comment: Test Performed by: [id number] Meter #: [id number] Ordering Provider: SILVIA REDDY Report Released Date/Time: Aug 15, 2024 04:59 PM Reporting Lab: [facility] [address] Performing Lab: [facility] [address] GLUCOSE,BLOOD- poct (STL) 136 mg/dL H Aug 15, 2024 04:16 PM [facility] GLUCOSE,BLOOD-poct (STL) Specimen Type: BLOOD Comment: Test Performed by: [id number] Meter #: [id number] Ordering Provider: SILVIA REDDY Report Released Date/Time: Aug 15, 2024 04:59 PM Reporting Lab: [facility] [address] Performing Lab: [facility] [address] GLUCOSE,BLOOD- poct (STL) 194 mg/dL H -Aug 15, 2024 11:39 AM [facility] GLUCOSE,BLOOD-poct (STL) Specimen Type: BLOOD Comment: Test Performed by: [id number] Meter #: [id number] Ordering Provider: SILVIA REDDY Report Released Date/Time: Aug 15, 2024 12:00 PM Reporting Lab: [facility] [address] Performing Lab: [facility] [place] [address] GLUCOSE,BLOOD- poct (STL) 127 mg/dL H -Aug 15, 2024 05:07 AM [facility] GLUCOSE,BLOOD-poct (STL) Specimen Type: BLOOD Comment: Test Performed by: [id number] Meter #: [id number] Ordering Provider: SILVIA REDDY Report Released Date/Time: Aug 15, 2024 06:14 AM Reporting Lab: [facility] [address] Performing Lab: [facility] [address] GLUCOSE,BLOOD- poct (STL) 151 mg/dL H -Aug 14, 2024 04:22 PM [facility] GLUCOSE,BLOOD-poct (STL) Specimen Type: BLOOD Comment: Test Performed by: [id number] Meter #: [id number] Ordering Provider: SILVIA REDDY Report Released Date/Time: Aug 14, 2024 04:52 PM Reporting Lab: [facility] Performing Lab: [facility] [address] GLUCOSE,BLOOD- poct (STL) 129 mg/dL H 72-99 Aug 14, 2024 11:21 AM [facility] GLUCOSE,BLOOD-poct (STL) Specimen Type: BLOOD Comment: Test Performed by: [id number] Meter #: [id number] Ordering Provider: SILVIA REDDY Report Released Date/Time: Aug 14, 2024 11:37 AM Reporting Lab: [facility] [address] Performing Lab: [facility] [address] GLUCOSE,BLOOD- poct (STL) 135 mg/dL H 72-99 Aug 14, 2024 06:59 AM [facility] QUANTIFERON-TB,4 TUBE Specimen Type: BLOOD [...] For additional information, please refer to [email or web address]. Speech Kingdom/faq/FJZ975 (This link is being provided for information/ educational purposes only.) Test Performed by [facility], [facility], [address] [place] [address] Tommie Garcia M.D., Ph.D., Director of Laboratories , [facility] [id number] Ordering Provider: SILVIA REDDY Report Released Date/Time: Aug 11, 2024 03:58 PM Reporting Lab: [facility] [address] [facility] [address] Performing Lab: [facility] [id number] [place] [address] .NIL - QUANTIFERON 0.04 [IU]/mL .MITOGEN-NIL 0.39 [IU]/mL .QUANTIFERON INDETERMINATE NEGATIVE .TB1-NIL <0.00 [IU]/mL .TB2-NIL <0.00 [IU]/mL Aug 14, 2024 06:59 AM [facility] B12 Specimen Type: SERUM No comment entered. Ordering Provider: SILVIA REDDY Report Released Date/Time: Aug 11, 2024 03:58 PM Reporting Lab: [facility] [address] Performing Lab: [facility] [address] B12 757 pg/mL 213-816 Aug 14, 2024 06:59 AM [facility] MAGNESIUM Specimen Type: PLASMA Comment: No hemolysis noted. Ordering Provider: SILVIA REDDY Report Released Date/Time: Aug 11, 2024 03:58 PM Reporting Lab: [facility] [address] Performing Lab: [facility] [address] MAGNESIUM 1.9 mg/dL 1.6-2.6 Aug 14, 2024 06:59 AM [facility] FOLATE (STL-MA) Specimen Type: SERUM No comment entered. Ordering Provider: SILVIA REDDY Report Released Date/Time: Aug 11, 2024 03:58 PM Reporting Lab: [facility] [address] Performing Lab: [facility] [address] FOLATE (STL-MA) 6.8 ng/mL L 7-20 Aug 14, 2024 06:59 AM [facility] VITAMIN D, 25-HYDROXY Specimen Type: SERUM No comment entered. Ordering Provider: SILVIA REDDY Report Released Date/Time: Aug 11, 2024 03:58 PM Reporting Lab: [facility] [address] Performing Lab: [facility] [address] VITAMIN D, 25-HYDROXY 8.9 ng/mL L 30-96 Aug 14, 2024 06:59 AM [facility] COMPREHENSIVE METABOLIC PANEL Specimen Type: PLASMA Comment: No hemolysis noted. Ordering Provider: SILVIA REDDY Report Released Date/Time: Aug 11, 2024 03:58 PM Reporting Lab: [facility] [address] Performing Lab: [facility] [address] CREATININE 0.75 mg/dL 0.70-1.30 UREA NITROGEN 13.6 [...] 95.88 >60 Aug 14, 2024 06:59 AM [facility] CBC Specimen Type: BLOOD No comment entered. Ordering Provider: SILVIA REDDY Report Released Date/Time: Aug 11, 2024 03:58 PM Reporting Lab: [facility] [address] Performing Lab: [facility] [address] WBC 4.1 10*3/uL 3.6-11.2 RBC 3.20 10*6/uL [...] Specimen Type: BLOOD Comment: Test Performed by: [id number] Meter #: [id number] Ordering Provider: SILVIA REDDY Report Released Date/Time: Aug 14, 2024 05:52 AM Reporting Lab: [facility] [address] Performing Lab: [facility] [address] GLUCOSE,BLOOD- poct (STL) 135 mg/dL H 72-99 Aug 13, 2024 04:27 PM [facility] GLUCOSE,BLOOD-poct (STL) Specimen Type: BLOOD Comment: Test Performed by: [id number] Meter #: [id number] Ordering Provider: SILVIA REDDY Report Released Date/Time: Aug 13, 2024 04:41 PM Reporting Lab: [facility] [address] Performing Lab: [facility] [address] GLUCOSE,BLOOD- poct (STL) 181 mg/dL H -Aug 13, 2024 11:33 AM [facility] GLUCOSE,BLOOD-poct (STL) Specimen Type: BLOOD Comment: Test Performed by: [id number] Meter #: [id number] Ordering Provider: SILVIA REDDY Report Released Date/Time: Aug 13, 2024 03:55 PM Reporting Lab: [facility] [address] Performing Lab: [facility] [address] GLUCOSE,BLOOD- poct (STL) 140 mg/dL H -Aug 13, 2024 05:54 AM [facility] GLUCOSE,BLOOD-poct (STL) Specimen Type: BLOOD Comment: Test Performed by: [id number] Meter #: [id number] Ordering Provider: SILVIA REDDY Report Released Date/Time: Aug 13, 2024 06:20 AM Reporting Lab: [facility] [address] Performing Lab: [facility] [address] GLUCOSE,BLOOD- poct (STL) 112 mg/dL H -Aug 12, 2024 04:35 PM [facility] GLUCOSE,BLOOD-poct (STL) Specimen Type: BLOOD Comment: Test Performed by: [id number] Meter #: [id number] Ordering Provider: SILVIA REDDY Report Released Date/Time: Aug 12, 2024 04:47 PM Reporting Lab: [facility] [address] Performing Lab: [facility] [address] GLUCOSE,BLOOD- poct (STL) 128 mg/dL H 72-99 Aug 12, 2024 11:26 AM [facility] GLUCOSE,BLOOD-poct (STL) Specimen Type: BLOOD Comment: Test Performed by: [id number] Meter #: [id number] Ordering Provider: SILVIA REDDY Report Released Date/Time: Aug 12, 2024 11:45 AM Reporting Lab: [facility] [address] Performing Lab: [facility] [address] GLUCOSE,BLOOD- poct (STL) 188 mg/dL H 72-Aug 12, 2024 06:13 AM [facility] GLUCOSE,BLOOD-poct (STL) Specimen Type: BLOOD Comment: Test Performed by: [id number] Meter #: [id number] Ordering Provider: SILVIA REDDY Report Released Date/Time: Aug 12, 2024 06:25 AM Reporting Lab: [facility] [address] Performing Lab: [facility] [address] GLUCOSE,BLOOD- poct (STL) 116 mg/dL H 72-99 Aug 11, 2024 04:10 PM [facility] GLUCOSE,BLOOD-poct (STL) Specimen Type: BLOOD Comment: Test Performed by: [id number] Meter #: [id number] Ordering Provider: SILVIA REDDY Report Released Date/Time: Aug 11, 2024 04:27 PM Reporting Lab: [facility] [place] [address] Performing Lab: [facility] [address] GLUCOSE,BLOOD- poct (STL) 184 mg/dL H 72-99 [...] Aug 11, 2024 02:03 PM Reporting Lab: [address] [address] Performing Lab: [address] [address] MRSA SURVL NARES DNA Negative Negative Vital Signs: All taken on the encounter date This section contains inpatient and outpatient Vital Signs collected on the date of the Encounter. Date/Time Temperature Pulse Blood Pressure Respiratory Rate SP02 Pain Height Weight Body Mass Index Source Aug 23, 2024 09:39 AM 0 [facility] N Aug 23, 2024 05:19 AM 71 124/62 99 [facility] N Advance Directives: All historical and [...] 19, 2017 ADVANCE DIRECTIVE DISCUSSION ERICK [facility]
--- OUTSIDE RECORDS SUMMARY | 2024-11-17 04:10 | XMS_ITS | Encounter Summary ---
Author Name [facility] [place] Organization [facility] [place] [facility] [place] Address [address] [place] [address] Care Team Providers Care Cloth Seconds Sorter Name Role Phone MANUEL BAIRD Primary Care [...] PART A Apr 08, 2017 PART A [id number] ASHLEY WAKLER PATIENT Selected Encounter This section includes the information on record at [place] for the Encounter. Date/Time Encounter Type Encounter Description Reason Provider Source Aug 23, 2024 08:53 AM CASE MANAGEMENT SOCIAL WORK SERVICE ICD-10-CM G47.33 Obstructive sleep apnea (adult) (pediatric) WARD ELIZABETH Encounter Template Text not used by [place] Assessments - Encounter Diagnoses This section includes the primary and secondary diagnoses documented for the Encounter. Date/Time Primary/Secondary Diagnosis Diagnosis Name Provider Source Aug 23, 2024 08:56 AM PRIMARY Obstructive sleep apnea (adult) (pediatric) JEFFREY ELIZABETH [facility] Plan of Treatment: Future Appointments (+ 6 months) and Future Tests (+/- 45 days) The Plan of Treatment section includes future care activities for the patient from [facility] [place] [facility] This section includes future appointments and future orders which are active, pending or scheduled. Future Appointments This section includes appointments that were scheduled to occur 6 months from the date of the Encounter, up to a maximum of 20 appointments. The data comes from all [facility]. Appointment Date/Time Appointment Type Appointme nt Facility Name Aug 24, 2024 10:00 AM AMBULATORY - MEDICINE [facility] Aug 24, 2024 10:30 AM AMBULATORY - MEDICINE [facility] Aug 30, 2024 09:30 AM AMBULATORY MEDICINE [facility] Aug 31, 2024 01:00 PM AMBULATORY - SURGERY [facility] Sep 21, 2024 01:30 PM AMBULATORY MEDICINE [facility] Sep 22, 2024 11:00 AM AMBULATORY - MEDICINE [facility] Sep 29, 2024 12:30 PM AMBULATORY - MEDICINE [facility] Oct 02, 2024 09:30 AM AMBULATORY - MEDICINE [facility] Nov 20, 2024 10:30 AM AMBULATORY - SURGERY [facility] Nov 21, 2024 10:00 AM AMBULATORY - NONE [facility] Dec 11, 2024 [...] of theEncounter. The data comes from all [facility]. Test Date/Time Test Type Test Details Facility Name Aug 02, 2024 12:00 AM Laboratory - Chemistry Order CBC BLOOD STAT SP [facility] Aug 02, 2024 12:00 AM Laboratory - Chemistry Order COMPREHENSIVE METABOLIC PANEL GREEN LI/HEP BLD/PLAS PLASMA SP [facility] Aug 17, 2024 03:47 PM Consult Order [facility] SKILLED HOME CARE STL Cons Bedside [place] [...] Range Comment Aug 23, 2024 08:21 AM [facility] CBC Specimen Type: BLOOD No comment entered. Ordering Provider: SILVIA REDDY Report Released Date/Time: Aug 22, 2024 11:19 AM Reporting Lab: [facility] [address] [facility] [address] Performing Lab: [facility] [address] WBC 4.0 10*3/uL 3.6-11.2 RBC 3.65 10*6/uL [...] 10*3/uL 0.00-0.20 Aug 23, 2024 08:21 AM [facility] MAGNESIUM Specimen Type: PLASMA No comment entered. Ordering Provider: SILVIA REDDY Report Released Date/Time: Aug 22, 2024 11:26 AM Reporting Lab: [facility] [address] Performing Lab: [facility] [address] MAGNESIUM 1.8 mg/dL 1.6-2.6 Aug 23, 2024 05:12 AM [facility] GLUCOSE,BLOOD-poct (STL) Specimen Type: BLOOD Comment: Test Performed by: [id number] Meter #: [id number] Ordering Provider: SIVLIA REDDY Report Released Date/Time: Aug 23, 2024 05:23 AM Reporting Lab: [facility] [address] Performing Lab: [facility] [address] GLUCOSE,BLOOD- poct (STL) 99 mg/dL 72-99 Aug 23, 2024 02:45 AM [facility] OCCULT BLOOD FIT X1 SCREEN Specimen Type: FECES No comment entered. Ordering Provider: SILVIA REDDY Report Released Date/Time: Aug 22, 2024 11:23 AM Reporting Lab: [address] [address] Performing Lab: [address] [address] OCCULT BLOOD (FIT) #1 OF 1 Negative Negative Aug 22, 2024 07:30 PM [facility] OCCULT BLOOD FIT X1 SCREEN Specimen Type: FECES No comment entered. Ordering Provider: SILVIA REDDY Report Released Date/Time: Aug 22, 2024 11:23 AM Reporting Lab: [address] [address] Performing Lab: [address] [address] OCCULT BLOOD (FIT) #1 OF 1 Negative Negative Aug 22, 2024 06:15 PM [facility] OCCULT BLOOD FIT X1 SCREEN Specimen Type: FECES No comment entered. Ordering Provider: SILVIA REDDY Report Released Date/Time: Aug 22, 2024 11:23 AM Reporting Lab: [facility] [address] [place] [address] Performing Lab: [address] [address] OCCULT BLOOD (FIT) #1 OF 1 Negative Negative Aug 22, 2024 04:24 PM [facility] GLUCOSE,BLOOD-poct (STL) Specimen Type: BLOOD Comment: Test Performed by: [id number] Meter #: [id number] Ordering Provider: SILVIA REDDY Report Released Date/Time: Aug 22, 2024 04:36 PM Reporting Lab: [facility] [facility] [address] Performing Lab: [facility] [facility] [address] GLUCOSE,BLOOD- poct (STL) 176 mg/dL H 72-99 Aug 22, 2024 04:23 PM [facility] GLUCOSE,BLOOD-poct (STL) Specimen Type: BLOOD Comment: Test Performed by: [id number] Meter #: [id number] Ordering Provider: SILVIA REDDY Report Released Date/Time: Aug 22, 2024 04:36 PM Reporting Lab: [facility] [address] Performing Lab: [facility] [facility] [address] GLUCOSE,BLOOD- poct (STL) 221 mg/dL H 72-99 Aug 22, 2024 11:15 AM [facility] GLUCOSE,BLOOD-poct (STL) Specimen Type: BLOOD Comment: Test Performed by: [id number] Meter #: [id number] Ordering Provider: SILVIA REDDY Report Released Date/Time: Aug 22, 2024 11:27 AM Reporting Lab: [facility] [facility] [address] Performing Lab: [facility] [address] GLUCOSE,BLOOD- poct (STL) 140 mg/dL H 72-99 Aug 22, 2024 08:03 AM [facility] CBC Specimen Type: BLOOD No comment entered. Ordering Provider: SILVIA REDDY Report Released Date/Time: Aug 17, 2024 01:18 PM Reporting Lab: [facility] [address] Performing Lab: [facility] #[address] [facility] [address] WBC 3.5 10*3/uL L 3.6-11.2 RBC 3.23 [...] NRBC% 0 Aug 22, 2024 08:03 AM [facility] COMPREHENSIVE METABOLIC PANEL Specimen Type: PLASMA Comment: No hemolysis noted. Ordering Provider: SILVIA REDDY Report Released Date/Time: Aug 17, 2024 01:18 PM Reporting Lab: [facility] [address] [facility] [address] Performing Lab: [address] [address] CREATININE 0.80 mg/dL 0.7-1.3 UREA NITROGEN 9.7 [...] >60 Aug 22, 2024 08:03 AM [facility] FERRITIN Specimen Type: SERUM No comment entered. Ordering Provider: JUDIT PERKINS Report Released Date/Time: Aug 18, 2024 11:01 AM Reporting Lab: [facility] [address] [place] [address] Performing Lab: [address] [address] FERRITIN 79.50 ng/mL 22-275 Aug 22, 2024 08:03 AM [facility] B12 Specimen Type: SERUM No comment entered. Ordering Provider: JUDIT PERKINS Report Released Date/Time: Aug 18, 2024 11:01 AM Reporting Lab: [facility] [facility] [address] Performing Lab: [facility] [facility] [address] B12 631 pg/mL 213-816 Aug 22, 2024 08:03 AM [facility] IRON/TIBC PROFILE Specimen Type: SERUM No comment entered. Ordering Provider: JUDIT PERKINS Report Released Date/Time: Aug 18, 2024 11:01 AM Reporting Lab: [facility] [address] [facility] [address] Performing Lab: [address] [address] TIBC 283 ug/dL 250-450 TRANSFERRIN 226 mg/dL 163-344 IRON SATURATION 7 L 20-50 IRON 19 ug/dL L 65-175 Aug 22, 2024 05:03 AM [facility] GLUCOSE,BLOOD-poct (STL) Specimen Type: BLOOD Comment: Test Performed by: [id number] Meter #: [id number] Ordering Provider: SILVIA REDDY Report Released Date/Time: Aug 22, 2024 06:17 AM Reporting Lab: [facility] [address] Performing Lab: [facility] [facility] [address] GLUCOSE,BLOOD- poct (STL) 170 mg/dL H 72-99 Aug 21, 2024 04:32 PM [facility] GLUCOSE,BLOOD-poct (STL) Specimen Type: BLOOD Comment: Test Performed by: [id number] Meter #: [id number] Ordering Provider: SILVIA REDDY Report Released Date/Time: Aug 21, 2024 04:49 PM Reporting Lab: [facility] [facility] [address] Performing Lab: [facility] [address] [facility] [address] GLUCOSE,BLOOD- poct (STL) 169 mg/dL H 72-99 Aug 21, 2024 11:53 AM [facility] GLUCOSE,BLOOD-poct (STL) Specimen Type: BLOOD Comment: Test Performed by: [id number] Meter #: [id number] Ordering Provider: SILVIA REDDY Report Released Date/Time: Aug 21, 2024 12:11 PM Reporting Lab: [facility] [address] [place] [address] Performing Lab: [facility] [facility] [address] GLUCOSE,BLOOD- poct (STL) 149 mg/dL H -Aug 21, 2024 05:10 AM [facility] GLUCOSE,BLOOD-poct (STL) Specimen Type: BLOOD Comment: Test Performed by: [id number] Meter #: [id number] Ordering Provider: SILVIA REDDY Report Released Date/Time: Aug 21, 2024 05:27 AM Reporting Lab: [facility] [facility] [address] Performing Lab: [facility] [address] [facility] [address] GLUCOSE,BLOOD- poct (STL) 118 mg/dL H -Aug 20, 2024 04:38 PM [facility] GLUCOSE,BLOOD-poct (STL) Specimen Type: BLOOD Comment: Test Performed by: [id number] Meter #: [id number] Ordering Provider: SILVIA REDDY Report Released Date/Time: Aug 21, 2024 01:55 AM Reporting Lab: [facility] [facility] [address] Performing Lab: [facility] #[address] [facility] [address] GLUCOSE,BLOOD- poct (STL) 169 mg/dL H -Aug 20, 2024 04:36 PM [facility] GLUCOSE,BLOOD-poct (STL) Specimen Type: BLOOD Comment: Test Performed by: [id number] Meter #: [id number] Ordering Provider: SILVIA REDDY Report Released Date/Time: Aug 21, 2024 01:55 AM Reporting Lab: [facility] [facility] [address] Performing Lab: [facility] [facility] [address] GLUCOSE,BLOOD- poct (STL) 395 mg/dL H -Aug 20, 2024 11:45 AM [facility] GLUCOSE,BLOOD-poct (STL) Specimen Type: BLOOD Comment: Test Performed by: [id number] Meter #: [id number] Ordering Provider: SILVIA REDDY Report Released Date/Time: Aug 20, 2024 11:56 AM Reporting Lab: [facility] [facility] [address] Performing Lab: [facility] [facility] [address] GLUCOSE,BLOOD- poct (STL) 169 mg/dL H -Aug 20, 2024 05:06 AM [facility] GLUCOSE,BLOOD-poct (STL) Specimen Type: BLOOD Comment: Test Performed by: [id number] Meter #: [id number] Ordering Provider: SILVIA REDDY Report Released Date/Time: Aug 20, 2024 06:05 AM Reporting Lab: [facility] [address] Performing Lab: [facility] [facility] [address] GLUCOSE,BLOOD- poct (STL) 115 mg/dL H -Aug 19, 2024 04:23 PM [facility] GLUCOSE,BLOOD-poct (STL) Specimen Type: BLOOD Comment: Test Performed by: [id number] Meter #: [id number] Ordering Provider: SILVIA REDDY Report Released Date/Time: Aug 19, 2024 05:54 PM Reporting Lab: [facility] [facility] [address] Performing Lab: [facility] [facility] [address] GLUCOSE,BLOOD- poct (STL) 137 mg/dL H -Aug 19, 2024 11:28 AM [facility] GLUCOSE,BLOOD-poct (STL) Specimen Type: BLOOD Comment: Test Performed by: [id number] Meter #: [id number] Ordering Provider: SILVIA REDDY Report Released Date/Time: Aug 19, 2024 11:51 AM Reporting Lab: [facility] [address] Performing Lab: [facility] #[address] [facility] [address] GLUCOSE,BLOOD- poct (STL) 190 mg/dL H 72-99 Aug 19, 2024 05:21 AM [facility] GLUCOSE,BLOOD-poct (STL) Specimen Type: BLOOD Comment: Test Performed by: [id number] Meter #: [id number] Ordering Provider: SILVIA REDDY Report Released Date/Time: Aug 19, 2024 05:56 AM Reporting Lab: [facility] [facility] [address] Performing Lab: [facility] [facility] [address] GLUCOSE,BLOOD- poct (STL) 130 mg/dL H 72-Aug 18, 2024 04:49 PM [facility] GLUCOSE,BLOOD-poct (STL) Specimen Type: BLOOD Comment: Test Performed by: [id number] Meter #: [id number] Ordering Provider: SILVIA REDDY Report Released Date/Time: Aug 18, 2024 05:01 PM Reporting Lab: [facility] [address] Performing Lab: [facility] #[address] [facility] [address] GLUCOSE,BLOOD- poct (STL) 129 mg/dL H 72-99 Aug 18, 2024 11:23 AM [facility] GLUCOSE,BLOOD-poct (STL) Specimen Type: BLOOD Comment: Test Performed by: [id number] Meter #: [id number] Ordering Provider: SILVIA REDDY Report Released Date/Time: Aug 18, 2024 11:41 AM Reporting Lab: [facility] [place] [address] Performing Lab: [facility] [facility] [address] GLUCOSE,BLOOD- poct (STL) 180 mg/dL H -Aug 18, 2024 05:08 AM [facility] GLUCOSE,BLOOD-poct (STL) Specimen Type: BLOOD Comment: Test Performed by: [id number] Meter #: [id number] Ordering Provider: SILVIA REDDY Report Released Date/Time: Aug 18, 2024 05:31 AM Reporting Lab: [facility] [facility] [address] Performing Lab: [facility] [address] GLUCOSE,BLOOD- poct (STL) 127 mg/dL H Aug 17, 2024 07:32 PM [facility] GLUCOSE,BLOOD-poct (STL) Specimen Type: BLOOD Comment: Test Performed by: [id number] Meter #: [id number] Ordering Provider: SILVAI REDDY Report Released Date/Time: Aug 17, 2024 07:59 PM Reporting Lab: [facility] [address] Performing Lab: [facility] [facility] [address] GLUCOSE,BLOOD- poct (STL) 154 mg/dL H Aug 17, 2024 04:24 PM [facility] GLUCOSE,BLOOD-poct (STL) Specimen Type: BLOOD Comment: Test Performed by: [id number] Meter #: [id number] Ordering Provider: SILVIA REDDY Report Released Date/Time: Aug 17, 2024 04:35 PM Reporting Lab: [facility] [address] Performing Lab: [facility] [address] GLUCOSE,BLOOD- poct (STL) 178 mg/dL H Aug 17, 2024 05:09 AM [facility] GLUCOSE,BLOOD-poct (STL) Specimen Type: BLOOD Comment: Test Performed by: [id number] Meter #: [id number] Ordering Provider: SILVIA REDDY Report Released Date/Time: Aug 17, 2024 05:54 AM Reporting Lab: [facility] [address] Performing Lab: [facility] [address] GLUCOSE,BLOOD- poct (STL) 124 mg/dL H -Aug 16, 2024 07:40 PM [facility] GLUCOSE,BLOOD-poct (STL) Specimen Type: BLOOD Comment: Test Performed by: [id number] Meter #: [id number] Ordering Provider: SILVIA REDDY Report Released Date/Time: Aug 16, 2024 08:28 PM Reporting Lab: [facility] [address] Performing Lab: [facility] [address] GLUCOSE,BLOOD- poct (STL) 144 mg/dL H Aug 16, 2024 04:19 PM [facility] GLUCOSE,BLOOD-poct (STL) Specimen Type: BLOOD Comment: Test Performed by: [id number] Meter #: [id number] Ordering Provider: SILVIA REDDY Report Released Date/Time: Aug 16, 2024 04:45 PM Reporting Lab: [facility] [address] Performing Lab: [facility] [address] GLUCOSE,BLOOD- poct (STL) 138 mg/dL H -Aug 16, 2024 11:52 AM [facility] GLUCOSE,BLOOD-poct (STL) Specimen Type: BLOOD Comment: Test Performed by: [id number] Meter #: [id number] Ordering Provider: SILVIA REDDY Report Released Date/Time: Aug 16, 2024 12:04 PM Reporting Lab: [facility] [address] Performing Lab: [facility] [address] GLUCOSE,BLOOD- poct (STL) 135 mg/dL H 72-Aug 16, 2024 05:24 AM [facility] GLUCOSE,BLOOD-poct (STL) Specimen Type: BLOOD Comment: Test Performed by: [id number] Meter #: [id number] Ordering Provider: SILVIA REDDY Report Released Date/Time: Aug 16, 2024 05:38 AM Reporting Lab: [facility] [address] Performing Lab: [facility] [address] GLUCOSE,BLOOD- poct (STL) 151 mg/dL H -Aug 15, 2024 07:31 PM [facility] GLUCOSE,BLOOD-poct (STL) Specimen Type: BLOOD Comment: Test Performed by: [id number] Meter #: [id number] Ordering Provider: SILVIA REDDY Report Released Date/Time: Aug 15, 2024 08:07 PM Reporting Lab: [facility] [address] Performing Lab: [facility] [address] GLUCOSE,BLOOD- poct (STL) 173 mg/dL H 72-Aug 15, 2024 04:18 PM [facility] GLUCOSE,BLOOD-poct (STL) Specimen Type: BLOOD Comment: Test Performed by: [id number] Meter #: [id number] Ordering Provider: SILVIA REDDY Report Released Date/Time: Aug 15, 2024 04:59 PM Reporting Lab: [facility] [place] [address] Performing Lab: [facility] [address] GLUCOSE,BLOOD- poct (STL) 136 mg/dL H -Aug 15, 2024 04:16 PM [facility] GLUCOSE,BLOOD-poct (STL) Specimen Type: BLOOD Comment: Test Performed by: [id number] Meter #: [id number] Ordering Provider: SILVIA REDDY Report Released Date/Time: Aug 15, 2024 04:59 PM Reporting Lab: [facility] [address] Performing Lab: [facility] [address] GLUCOSE,BLOOD- poct (STL) 194 mg/dL H Aug 15, 2024 11:39 AM [facility] GLUCOSE,BLOOD-poct (STL) Specimen Type: BLOOD Comment: Test Performed by: [id number] Meter #: [id number] Ordering Provider: SILVIA REDDY Report Released Date/Time: Aug 15, 2024 12:00 PM Reporting Lab: [facility] [address] Performing Lab: [facility] [address] GLUCOSE,BLOOD- poct (STL) 127 mg/dL H Aug 15, 2024 05:07 AM [facility] GLUCOSE,BLOOD-poct (STL) Specimen Type: BLOOD Comment: Test Performed by: [id number] Meter #: [id number] Ordering Provider: SILVIA REDDY Report Released Date/Time: Aug 15, 2024 06:14 AM Reporting Lab: [facility] [address] Performing Lab: [facility] [address] GLUCOSE,BLOOD- poct (STL) 151 mg/dL H Aug 14, 2024 04:22 PM [facility] GLUCOSE,BLOOD-poct (STL) Specimen Type: BLOOD Comment: Test Performed by: [id number] Meter #: [id number] Ordering Provider: SILVIA REDDY Report Released Date/Time: Aug 14, 2024 04:52 PM Reporting Lab: [facility] [address] Performing Lab: [facility] [address] GLUCOSE,BLOOD- poct (STL) 129 mg/dL H 72-Aug 14, 2024 11:21 AM [facility] GLUCOSE,BLOOD-poct (STL) Specimen Type: BLOOD Comment: Test Performed by: [id number] Meter #: [id number] Ordering Provider: SILVIA REDDY Report Released Date/Time: Aug 14, 2024 11:37 AM Reporting Lab: [facility] [address] Performing Lab: [facility] [address] GLUCOSE,BLOOD- poct (STL) 135 mg/dL H 72-Aug 14, 2024 06:59 AM [facility] QUANTIFERON-TB,4 TUBE Specimen Type: [...] For additional information, please refer to http://education. Fipeo. GroundWork/faq/QAJ136 (This link is being provided for information/ educational purposes only.) Test Performed by [employer], [employer] [facility], [address] [place], [place] Tommie Garcia M.D., Ph.D., Director of Laboratories , [facility] [id number] Ordering Provider: SILVIA REDDY Report Released Date/Time: Aug 11, 2024 03:58 PM Reporting Lab: [facility] [address] [facility] [address] Performing Lab: [facility] [address] [facility] .NIL - QUANTIFERON 0.04 [IU]/mL .MITOGEN-NIL 0.39 [IU]/mL .QUANTIFERON INDETERMINATE NEGATIVE .TB1-NIL <0.00 [IU]/mL .TB2-NIL <0.00 [IU]/mL Aug 14, 2024 06:59 AM [facility] MAGNESIUM Specimen Type: PLASMA Comment: No hemolysis noted. Ordering Provider: SILVIA REDDY Report Released Date/Time: Aug 11, 2024 03:58 PM Reporting Lab: [facility] [address] [facility] [address] Performing Lab: [facility] [address] [place] [phone] MAGNESIUM 1.9 mg/dL 1.6-2.6 Aug 14, 2024 06:59 AM [facility] B12 Specimen Type: SERUM No comment entered. Ordering Provider: SILVAI REDDY Report Released Date/Time: Aug 11, 2024 03:58 PM Reporting Lab: [facility] [facility] [address] Performing Lab: [facility] [address] [place] [phone] B12 757 pg/mL 213-816 Aug 14, 2024 06:59 AM [facility] VITAMIN D, 25-HYDROXY Specimen Type: SERUM No comment entered. Ordering Provider: SILVIA REDDY Report Released Date/Time: Aug 11, 2024 03:58 PM Reporting Lab: [facility] [address] [place] [address] Performing Lab: [facility] [address] [place] [address] VITAMIN D, 25-HYDROXY 8.9 ng/mL L 30-96 Aug 14, 2024 06:59 AM [facility] FOLATE ([facility]) Specimen Type: SERUM No comment entered. Ordering Provider: SILVIA REDDY Report Released Date/Time: Aug 11, 2024 03:58 PM Reporting Lab: [facility] [address] [place] [address] Performing Lab: [place] [facility] [place] [address] FOLATE (L-MA) 6.8 ng/mL L 7-20 Aug 14, 2024 06:59 AM [facility] COMPREHENSIVE METABOLIC PANEL Specimen Type: PLASMA Comment: No hemolysis noted. Ordering Provider: SILVIA REDDY Report Released Date/Time: Aug 11, 2024 03:58 PM Reporting Lab: [facility] [place] [address] Performing Lab: [facility] [place] [address] CREATININE 0.75 mg/dL 0.70-1.30 UREA NITROGEN 13.6 [...] >60 Aug 14, 2024 06:59 AM [facility] CBC Specimen Type: BLOOD No comment entered. Ordering Provider: SILVIA REDDY Report Released Date/Time: Aug 11, 2024 03:58 PM Reporting Lab: [facility] [address] Performing Lab: [facility] [address] WBC 4.1 10*3/uL 3.6-11.2 RBC 3.20 10*6/uL [...] 0.00-0.20 Aug 14, 2024 05:08 AM [facility] GLUCOSE,BLOOD-poct (STL) Specimen Type: BLOOD Comment: Test Performed by: [id number] Meter #: [id number] Ordering Provider: SILVIA REDDY Report Released Date/Time: Aug 14, 2024 05:52 AM Reporting Lab: [facility] [address] Performing Lab: [facility] [address] GLUCOSE,BLOOD- poct (STL) 135 mg/dL H -Aug 13, 2024 04:27 PM [facility] GLUCOSE,BLOOD-poct (STL) Specimen Type: BLOOD Comment: Test Performed by: [id number] Meter #: [id number] Ordering Provider: SILVIA REDDY Report Released Date/Time: Aug 13, 2024 04:41 PM Reporting Lab: [facility] [address] Performing Lab: [facility] [address] GLUCOSE,BLOOD- poct (STL) 181 mg/dL H Aug 13, 2024 11:33 AM [facility] GLUCOSE,BLOOD-poct (STL) Specimen Type: BLOOD Comment: Test Performed by: [id number] Meter #: [id number] Ordering Provider: SILVIA REDDY Report Released Date/Time: Aug 13, 2024 03:55 PM Reporting Lab: [facility] [address] Performing Lab: [facility] [address] GLUCOSE,BLOOD- poct (STL) 140 mg/dL H Aug 13, 2024 05:54 AM [facility] GLUCOSE,BLOOD-poct (STL) Specimen Type: BLOOD Comment: Test Performed by: [id number] Meter #: [id number] Ordering Provider: SILVIA REDDY Report Released Date/Time: Aug 13, 2024 06:20 AM Reporting Lab: [facility] [address] Performing Lab: [facility] [address] GLUCOSE,BLOOD- poct (STL) 112 mg/dL H -Aug 12, 2024 04:35 PM [facility] GLUCOSE,BLOOD-poct (STL) Specimen Type: BLOOD Comment: Test Performed by: [id number] Meter #: [id number] Ordering Provider: SILVIA REDDY Report Released Date/Time: Aug 12, 2024 04:47 PM Reporting Lab: [facility] [place] [address] Performing Lab: [facility] [address] GLUCOSE,BLOOD- poct (STL) 128 mg/dL H Aug 12, 2024 11:26 AM [facility] GLUCOSE,BLOOD-poct (STL) Specimen Type: BLOOD Comment: Test Performed by: [id number] Meter #: [id number] Ordering Provider: SILVIA REDDY Report Released Date/Time: Aug 12, 2024 11:45 AM Reporting Lab: [facility] [place] [address] Performing Lab: [facility] [address] GLUCOSE,BLOOD- poct (STL) 188 mg/dL H Aug 12, 2024 06:13 AM [facility] GLUCOSE,BLOOD-poct (STL) Specimen Type: BLOOD Comment: Test Performed by: [id number] Meter #: [id number] Ordering Provider: SILVIA REDDY Report Released Date/Time: Aug 12, 2024 06:25 AM Reporting Lab: [facility] [place] [address] Performing Lab: [facility] [address] GLUCOSE,BLOOD- poct (STL) 116 mg/dL H Aug 11, 2024 04:10 PM [facility] GLUCOSE,BLOOD-poct (STL) Specimen Type: BLOOD Comment: Test Performed by: [id number] Meter #: [id number] Ordering Provider: SILVIA REDDY Report Released Date/Time: Aug 11, 2024 04:27 PM Reporting Lab: [facility] [place] [address] Performing Lab: [facility] [place] [address] GLUCOSE,BLOOD- poct (STL) 184 mg/dL H 72-99 Aug 11, 2024 01:44 PM [facility] MRSA SURVL NARES DNA [...] Aug 11, 2024 02:03 PM Reporting Lab: [facility] [address] [place] [id number] Performing Lab: [address] [address] MRSA SURVL NARES DNA Negative Negative Vital Signs: All taken on the encounter date This section contains inpatient and outpatient Vital Signs collected on the date of the Encounter. Date/Time Temperature Pulse Blood Pressure Respiratory Rate SP02 Pain Height Weight Body Mass Index Source Aug 23, 2024 09:39 AM 0 [facility] N Aug 23, 2024 05:19 AM 71 124/62 99 [facility] N Advance Directives: All historical and [...] 19, 2017 ADVANCE DIRECTIVE DISCUSSION ERICK BARDALES [facility] Encounter Notes: All associated encounter notes This section contains the clinical notes associated to the Encounter. Date/Time Encounter Note(s) Provider Source Aug 23, 2024 08:53 AM [facility] DISCHA RGNav NOTE: LOCAL TITLE: SW DISCHARGE PLAN STL STANDARD TITLE: SOCIAL WORK DISCHARGE NOTE DATE OF NOTE: AUG 23, 2024@08:53 ENTRY DATE: AUG 23, 2024@08:53:50 AUTHOR: BERNARD ELIZABETH COSIGNER: URGENCY: STATUS: COMPLETED RE: DISCHARGE OF Patient Name: CHET WALKER Patient ADMITTED DATE: 08/11/2024 DISCHARGE DATE: 08/23/2024 Primary Care Provider: MANUEL BAIRD 'S DISCHARGE LOCATION: [address] [place] [address] TRANSPORTATION ARRANGEMENTS: [place] stated that either his son or his friend will pick him up today at 1100 and transport him home. SW notified RN. No other needs/concerns identified. Minutes spent with : 15 Location: bedside Suicide Screen - V: C-SSRS Screening [place]-Suicide Severity Rating Scale (C-SSRS Screener) 1. Over [...] due to responses to other questions. /shen/ KG Gomez, NEUROLOGY HOSPITALIST Paving Bed Maker Signed: 08/23/2024 08:56 BERNARD ELIZABETH [facility]
--- OUTSIDE RECORDS SUMMARY | 2024-11-17 04:10 | XMS_ITS | Encounter Summary ---
Author Name [facility] Organization [facility] [place] Address [address] [place] [address] Care Team Providers Care Oracle Specialist Name Role Phone MANUEL BAIRD Primary [...] PART A Apr 08, 2017 PART A [id number] [phone] ASHLEY WALKER PATIENT Selected Encounter This section includes the information on record at [place] for the Encounter. 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 Plan of Treatment: Future Appointments (+ 6 months) and Future Tests (+/- 45 days) The Plan of Treatment section includes future care activities for the patient from all [place] [facility] This section includes future appointments and future orders which are active, pending or scheduled. Future Appointments This section includes appointments that were scheduled to occur 6 months from the date of the Encounter, up to a maximum of 20 appointments. The data comes from all [facility]. Appointment Date/Time Appointment Type Appointme nt Facility Name Aug 24, 2024 10:00 AM AMBULATORY - MEDICINE [facility] Aug 24, 2024 10:30 AM AMBULATORY - MEDICINE [facility] Aug 30, 2024 09:30 AM AMBULATORY MEDICINE [facility] Aug 31, 2024 01:00 PM [facility] Sep 21, 2024 01:30 PM AMBULATORY MEDICINE [facility] Sep 22, 2024 11:00 AM AMBULATORY - MEDICINE [facility] Sep 29, 2024 12:30 PM AMBULATORY - MEDICINE [facility] Oct 02, 2024 09:30 AM AMBULATORY - MEDICINE [facility] Nov 20, 2024 10:30 AM [facility] Nov 21, 2024 10:00 AM AMBULATORY - NONE [facility] Dec 11, 2024 10:30 AM AMBULATORY - MEDICINE [facility] Active, Pending, and Scheduled Orders This section includes a listing of several types of active, pending, and scheduled orders, including clinic medications orders, diagnostic test orders, procedure orders and consult orders; where the start date of the order is 45 days before the date of the Encounter or 45 days after the date of theEncounter. The data comes from all [facility]. Test Date/Time Test Type Test Details Facility Name Aug 02, 2024 12:00 AM Laboratory - Chemistry Order CBC BLOOD STAT SP [facility] Aug 02, 2024 12:00 AM Laboratory - Chemistry Order COMPREHENSIVE METABOLIC PANEL GREEN LI/HEP BLD/PLAS PLASMA SP [facility] Aug 17, 2024 03:47 PM Consult Order [facility] Cons Bedside [facility] Lab Results: +/- 30 days of the [...] AM Reporting Lab: [facility] [address] Performing Lab: [facility] [address] MAGNESIUM 1.8 mg/dL 1.6-2.6 Aug 23, 2024 08:[address] [facility] CBC Specimen Type: BLOOD No comment entered. Ordering Provider: SILVIA REDDY Report Released Date/Time: Aug 22, 2024 11:19 AM Reporting Lab: [facility] [address] Performing Lab: [facility] [address] WBC 4.0 10*3/uL 3.6-11.2 RBC 3.65 10*6/uL [...] Specimen Type: BLOOD Comment: Test Performed by: [id number] Meter #: [id number] Ordering Provider: SILVIA REDDY Report Released Date/Time: Aug 23, 2024 05:23 AM Reporting Lab: [facility] [address] Performing Lab: [facility] [address] GLUCOSE,BLOOD- poct (STL) 99 mg/dL 72-99 Aug 23, 2024 02:[address] [facility] OCCULT BLOOD FIT X1 SCREEN Specimen Type: FECES No comment entered. Ordering Provider: SILVIA REDDY Report Released Date/Time: Aug 22, 2024 11:23 AM Reporting Lab: [address] [address] Performing Lab: [address] [address] OCCULT BLOOD (FIT) #1 OF 1 Negative Negative Aug 22, 2024 07:[address] [facility] OCCULT BLOOD FIT X1 SCREEN Specimen Type: FECES No comment entered. Ordering Provider: SILVIA REDDY Report Released Date/Time: Aug 22, 2024 11:23 AM Reporting Lab: [address] [address] Performing Lab: [address] [address] OCCULT BLOOD (FIT) #1 OF 1 Negative Negative Aug 22, 2024 06:[address] [facility] OCCULT BLOOD FIT X1 SCREEN Specimen Type: FECES No comment entered. Ordering Provider: SILVIA REDDY Report Released Date/Time: Aug 22, 2024 11:23 AM Reporting Lab: [facility] [address] [place] [address] Performing Lab: [address] [address] OCCULT BLOOD (FIT) #1 OF 1 Negative Negative Aug 22, 2024 04:[address] [facility] GLUCOSE,BLOOD-poct (STL) Specimen Type: BLOOD Comment: Test Performed by: [id number] Meter #: [id number] Ordering Provider: SILVIA REDDY Report Released Date/Time: Aug 22, 2024 04:36 PM Reporting Lab: [facility] [address] Performing Lab: [facility] [address] GLUCOSE,BLOOD- poct (STL) 176 mg/dL H 72-99 Aug 22, 2024 04:[address] [facility] GLUCOSE,BLOOD-poct (STL) Specimen Type: BLOOD Comment: Test Performed by: [id number] Meter #: [id number] Ordering Provider: SILVIA REDDY Report Released Date/Time: Aug 22, 2024 04:36 PM Reporting Lab: [facility] [address] Performing Lab: [facility] [address] GLUCOSE,BLOOD- poct (STL) 221 mg/dL H 72-99 Aug 22, 2024 11:[address] [facility] GLUCOSE,BLOOD-poct (STL) Specimen Type: BLOOD Comment: Test Performed by: [id number] Meter #: [id number] Ordering Provider: SILVIA REDDY Report Released Date/Time: Aug 22, 2024 11:27 AM Reporting Lab: [facility] [address] Performing Lab: [facility] [address] GLUCOSE,BLOOD- poct (STL) 140 mg/dL H 72-99 Aug 22, 2024 08:[address] [facility] FERRITIN Specimen Type: SERUM No comment entered. Ordering Provider: JUDIT PERKINS Report Released Date/Time: Aug 18, 2024 11:01 AM Reporting Lab: [facility] [address] [facility] [address] Performing Lab: [facility] [address] [place] [address] FERRITIN 79.50 ng/mL 22-275 Aug 22, 2024 08:[address] [facility] IRON/TIBC PROFILE Specimen Type: SERUM No comment entered. Ordering Provider: JUDIT PERKINS Report Released Date/Time: Aug 18, 2024 11:01 AM Reporting Lab: [facility] [address] [facility] [address] Performing Lab: [facility] [address] [facility] [address] TIBC 283 ug/dL 250-450 TRANSFERRIN 226 mg/dL 163-344 IRON SATURATION 7 L 20-50 IRON 19 ug/dL L 65-175 Aug 22, 2024 08:[address] [facility] B12 Specimen Type: SERUM No comment entered. Ordering Provider: JUDIT PERKINS Report Released Date/Time: Aug 18, 2024 11:01 AM Reporting Lab: [facility] [address] Performing Lab: [facility] [address] B12 631 pg/mL 213-816 Aug 22, 2024 08:[address] [facility] COMPREHENSIVE METABOLIC PANEL Specimen Type: PLASMA Comment: No hemolysis noted. Ordering Provider: SILVIA REDDY Report Released Date/Time: Aug 17, 2024 01:18 PM Reporting Lab: [facility] [address] [facility] [address] Performing Lab: [facility] [address] [facility] [address] CREATININE 0.80 mg/dL 0.7-1.3 UREA NITROGEN 9.7 [...] >60 Aug 22, 2024 08:[address] [facility] CBC Specimen Type: BLOOD No comment entered. Ordering Provider: SILVIA REDDY Report Released Date/Time: Aug 17, 2024 01:18 PM Reporting Lab: [facility] [facility] [address] Performing Lab: [facility] [facility] [address] WBC 3.5 10*3/uL L 3.6-11.2 RBC 3.23 [...] Specimen Type: BLOOD Comment: Test Performed by: [id number] Meter #: [id number] Ordering Provider: SILVIA REDDY Report Released Date/Time: Aug 22, 2024 06:17 AM Reporting Lab: [facility] [place] [address] Performing Lab: [facility] [place] [address] GLUCOSE,BLOOD- poct (STL) 170 mg/dL H 72-99 Aug 21, 2024 04:[address] [facility] GLUCOSE,BLOOD-poct (STL) Specimen Type: BLOOD Comment: Test Performed by: [id number] Meter #: [id number] Ordering Provider: SILVIA REDDY Report Released Date/Time: Aug 21, 2024 04:49 PM Reporting Lab: [facility] [place] [address] Performing Lab: [facility] [place] [address] GLUCOSE,BLOOD- poct (STL) 169 mg/dL H 72-99 Aug 21, 2024 11:[address] [facility] GLUCOSE,BLOOD-poct (STL) Specimen Type: BLOOD Comment: Test Performed by: [id number] Meter #: [id number] Ordering Provider: SILVIA REDDY Report Released Date/Time: Aug 21, 2024 12:11 PM Reporting Lab: [facility] [place] [address] Performing Lab: [facility] [facility] [address] GLUCOSE,BLOOD- poct (STL) 149 mg/dL H -Aug 21, 2024 05:[address] [facility] GLUCOSE,BLOOD-poct (STL) Specimen Type: BLOOD Comment: Test Performed by: [id number] Meter #: [id number] Ordering Provider: SILVIA REDDY Report Released Date/Time: Aug 21, 2024 05:27 AM Reporting Lab: [facility] [facility] [address] Performing Lab: [facility] [address] GLUCOSE,BLOOD- poct (STL) 118 mg/dL H -Aug 20, 2024 04:[address] [facility] GLUCOSE,BLOOD-poct (STL) Specimen Type: BLOOD Comment: Test Performed by: [id number] Meter #: [id number] Ordering Provider: SILVIA REDDY Report Released Date/Time: Aug 21, 2024 01:55 AM Reporting Lab: [facility] [address] Performing Lab: [facility] [facility] [address] GLUCOSE,BLOOD- poct (STL) 169 mg/dL H -Aug 20, 2024 04:[address] [facility] GLUCOSE,BLOOD-poct (STL) Specimen Type: BLOOD Comment: Test Performed by: [id number] Meter #: [id number] Ordering Provider: SILVIA REDDY Report Released Date/Time: Aug 21, 2024 01:55 AM Reporting Lab: [facility] [facility] [address] Performing Lab: [facility] [facility] [address] GLUCOSE,BLOOD- poct (STL) 395 mg/dL H Aug 20, 2024 11:[address] [facility] GLUCOSE,BLOOD-poct (STL) Specimen Type: BLOOD Comment: Test Performed by: [id number] Meter #: [id number] Ordering Provider: SILVIA REDDY Report Released Date/Time: Aug 20, 2024 11:56 AM Reporting Lab: [facility] [address] Performing Lab: [facility] [address] GLUCOSE,BLOOD- poct (STL) 169 mg/dL H 72-Aug 20, 2024 05:[address] [facility] GLUCOSE,BLOOD-poct (STL) Specimen Type: BLOOD Comment: Test Performed by: [id number] Meter #: [id number] Ordering Provider: SILVIA REDDY Report Released Date/Time: Aug 20, 2024 06:05 AM Reporting Lab: [facility] [place] [address] Performing Lab: [facility] [address] GLUCOSE,BLOOD- poct (STL) 115 mg/dL H -Aug 19, 2024 04:[address] [facility] GLUCOSE,BLOOD-poct (STL) Specimen Type: BLOOD Comment: Test Performed by: [id number] Meter #: [id number] Ordering Provider: SILVIA REDDY Report Released Date/Time: Aug 19, 2024 05:54 PM Reporting Lab: [facility] [address] Performing Lab: [facility] [address] GLUCOSE,BLOOD- poct (STL) 137 mg/dL H 72-Aug 19, 2024 11:[address] [facility] GLUCOSE,BLOOD-poct (STL) Specimen Type: BLOOD Comment: Test Performed by: [id number] Meter #: [id number] Ordering Provider: SILVIA REDDY Report Released Date/Time: Aug 19, 2024 11:51 AM Reporting Lab: [facility] [address] Performing Lab: [facility] [address] GLUCOSE,BLOOD- poct (STL) 190 mg/dL H 72-99 Aug 19, 2024 05:[address] [facility] GLUCOSE,BLOOD-poct (STL) Specimen Type: BLOOD Comment: Test Performed by: [id number] Meter #: [id number] Ordering Provider: SILVIA REDDY Report Released Date/Time: Aug 19, 2024 05:56 AM Reporting Lab: [facility] [address] Performing Lab: [facility] [address] GLUCOSE,BLOOD- poct (STL) 130 mg/dL H 72-99 Aug 18, 2024 04:[address] [facility] GLUCOSE,BLOOD-poct (STL) Specimen Type: BLOOD Comment: Test Performed by: [id number] Meter #: [id number] Ordering Provider: SILVIA REDDY Report Released Date/Time: Aug 18, 2024 05:01 PM Reporting Lab: [facility] [address] Performing Lab: [facility] [address] GLUCOSE,BLOOD- poct (STL) 129 mg/dL H 72-99 Aug 18, 2024 11:[address] [facility] GLUCOSE,BLOOD-poct (STL) Specimen Type: BLOOD Comment: Test Performed by: [id number] Meter #: [id number] Ordering Provider: SILVIA REDDY Report Released Date/Time: Aug 18, 2024 11:41 AM Reporting Lab: [facility] [address] Performing Lab: [facility] [address] GLUCOSE,BLOOD- poct (STL) 180 mg/dL H Aug 18, 2024 05:[address] [facility] GLUCOSE,BLOOD-poct (STL) Specimen Type: BLOOD Comment: Test Performed by: [id number] Meter #: [id number] Ordering Provider: SILVIA REDDY Report Released Date/Time: Aug 18, 2024 05:31 AM Reporting Lab: [facility] [address] Performing Lab: [facility] [address] GLUCOSE,BLOOD- poct (STL) 127 mg/dL H Aug 17, 2024 07:[address] [facility] GLUCOSE,BLOOD-poct (STL) Specimen Type: BLOOD Comment: Test Performed by: [id number] Meter #: [id number] Ordering Provider: SILVIA REDDY Report Released Date/Time: Aug 17, 2024 07:59 PM Reporting Lab: [facility] [address] Performing Lab: [facility] [address] GLUCOSE,BLOOD- poct (STL) 154 mg/dL H Aug 17, 2024 04:[address] [facility] GLUCOSE,BLOOD-poct (STL) Specimen Type: BLOOD Comment: Test Performed by: [id number] Meter #: [id number] Ordering Provider: SILVIA REDDY Report Released Date/Time: Aug 17, 2024 04:35 PM Reporting Lab: [facility] [address] Performing Lab: [facility] [address] GLUCOSE,BLOOD- poct (STL) 178 mg/dL H Aug 17, 2024 05:[address] [facility] GLUCOSE,BLOOD-poct (STL) Specimen Type: BLOOD Comment: Test Performed by: [id number] Meter #: [id number] Ordering Provider: SILVIA REDDY Report Released Date/Time: Aug 17, 2024 05:54 AM Reporting Lab: [facility] [address] Performing Lab: [facility] [address] GLUCOSE,BLOOD- poct (STL) 124 mg/dL H Aug 16, 2024 07:[address] [facility] GLUCOSE,BLOOD-poct (STL) Specimen Type: BLOOD Comment: Test Performed by: [id number] Meter #: [id number] Ordering Provider: SILVIA REDDY Report Released Date/Time: Aug 16, 2024 08:28 PM Reporting Lab: [facility] [address] Performing Lab: [facility] [address] GLUCOSE,BLOOD- poct (STL) 144 mg/dL H Aug 16, 2024 04:[address] [facility] GLUCOSE,BLOOD-poct (STL) Specimen Type: BLOOD Comment: Test Performed by: [id number] Meter #: [id number] Ordering Provider: SILVIA REDDY Report Released Date/Time: Aug 16, 2024 04:45 PM Reporting Lab: [facility] [address] Performing Lab: [facility] [address] GLUCOSE,BLOOD- poct (STL) 138 mg/dL H Aug 16, 2024 11:[address] [facility] GLUCOSE,BLOOD-poct (STL) Specimen Type: BLOOD Comment: Test Performed by: [id number] Meter #: [id number] Ordering Provider: SILVIA REDDY Report Released Date/Time: Aug 16, 2024 12:04 PM Reporting Lab: [facility] [address] Performing Lab: [facility] [address] GLUCOSE,BLOOD- poct (STL) 135 mg/dL H 72-Aug 16, 2024 05:[address] [facility] GLUCOSE,BLOOD-poct (STL) Specimen Type: BLOOD Comment: Test Performed by: [id number] Meter #: [id number] Ordering Provider: SILVIA REDDY Report Released Date/Time: Aug 16, 2024 05:38 AM Reporting Lab: [facility] [address] Performing Lab: [facility] [address] GLUCOSE,BLOOD- poct (STL) 151 mg/dL H 72-Aug 15, 2024 07:[address] [facility] GLUCOSE,BLOOD-poct (STL) Specimen Type: BLOOD Comment: Test Performed by: [id number] Meter #: [id number] Ordering Provider: SILVIA REDDY Report Released Date/Time: Aug 15, 2024 08:07 PM Reporting Lab: [facility] [address] Performing Lab: [facility] [address] GLUCOSE,BLOOD- poct (STL) 173 mg/dL H 72-99 Aug 15, 2024 04:[address] [facility] GLUCOSE,BLOOD-poct (STL) Specimen Type: BLOOD Comment: Test Performed by: [id number] Meter #: [id number] Ordering Provider: SILVIA REDDY Report Released Date/Time: Aug 15, 2024 04:59 PM Reporting Lab: [facility] [address] Performing Lab: [facility] [address] GLUCOSE,BLOOD- poct (STL) 136 mg/dL H Aug 15, 2024 04:[address] [facility] GLUCOSE,BLOOD-poct (STL) Specimen Type: BLOOD Comment: Test Performed by: [id number] Meter #: [id number] Ordering Provider: SILVIA REDDY Report Released Date/Time: Aug 15, 2024 04:59 PM Reporting Lab: [facility] [address] Performing Lab: [facility] [address] GLUCOSE,BLOOD- poct (STL) 194 mg/dL H Aug 15, 2024 11:[address] [facility] GLUCOSE,BLOOD-poct (STL) Specimen Type: BLOOD Comment: Test Performed by: [id number] Meter #: [id number] Ordering Provider: SILVIA REDDY Report Released Date/Time: Aug 15, 2024 12:00 PM Reporting Lab: [facility] [address] Performing Lab: [facility] [address] GLUCOSE,BLOOD- poct (STL) 127 mg/dL H Aug 15, 2024 05:[address] [facility] GLUCOSE,BLOOD-poct (STL) Specimen Type: BLOOD Comment: Test Performed by: [id number] Meter #: [id number] Ordering Provider: SILVIA REDDY Report Released Date/Time: Aug 15, 2024 06:14 AM Reporting Lab: [facility] [address] Performing Lab: [facility] [address] GLUCOSE,BLOOD- poct (STL) 151 mg/dL H Aug 14, 2024 04:[address] [facility] GLUCOSE,BLOOD-poct (STL) Specimen Type: BLOOD Comment: Test Performed by: [id number] Meter #: [id number] Ordering Provider: SILVIA REDDY Report Released Date/Time: Aug 14, 2024 04:52 PM Reporting Lab: [facility] [address] Performing Lab: [facility] [address] GLUCOSE,BLOOD- poct (STL) 129 mg/dL H 72-99 Aug 14, 2024 11:[address] [facility] GLUCOSE,BLOOD-poct (STL) Specimen Type: BLOOD Comment: Test Performed by: [id number] Meter #: [id number] Ordering Provider: SILVIA REDDY Report Released Date/Time: Aug 14, 2024 11:37 AM Reporting Lab: [facility] [facility] [facility] [place] [address] Performing Lab: [facility] [place] [address] GLUCOSE,BLOOD- poct (STL) 135 mg/dL H 72-99 Aug 14, 2024 06:[address] [...] For additional information, please refer to http://[email or web address]/faq/DIB386 (This link is being provided for information/ educational purposes only.) Test Performed by [employer] [facility], [address] [place], [place] Tommie Garcia M.D., Ph.D., Director of Laboratories , [facility] [id number] Ordering Provider: SILVIA REDDY Report Released Date/Time: Aug 11, 2024 03:58 PM Reporting Lab: [facility] [address] [address] Performing Lab: [facility] [address] [facility] .NIL - QUANTIFERON 0.04 [IU]/mL .MITOGEN-NIL 0.39 [IU]/mL .QUANTIFERON INDETERMINATE NEGATIVE .TB1-NIL <0.00 [IU]/mL .TB2-NIL <0.00 [IU]/mL Aug 14, 2024 06:[address] [facility] B12 Specimen Type: SERUM No comment entered. Ordering Provider: SILVIA REDDY Report Released Date/Time: Aug 11, 2024 03:58 PM Reporting Lab: [facility] [place] [address] Performing Lab: [facility] [place] [address] B12 757 pg/mL 213-816 Aug 14, 2024 06:[address] [facility] MAGNESIUM Specimen Type: PLASMA Comment: No hemolysis noted. Ordering Provider: SILVIA REDDY Report Released Date/Time: Aug 11, 2024 03:58 PM Reporting Lab: [facility] [place] [address] Performing Lab: [facility] [place] [address] MAGNESIUM 1.9 mg/dL 1.6-2.6 Aug 14, 2024 06:[address] [facility] FOLATE (L-MA) Specimen Type: SERUM No comment entered. Ordering Provider: SILVIA REDDY Report Released Date/Time: Aug 11, 2024 03:58 PM Reporting Lab: [facility] [place] [address] Performing Lab: [facility] [place] [address] FOLATE (L-MA) 6.8 ng/mL L 7-20 Aug 14, 2024 06:[address] [facility] VITAMIN D, 25-HYDROXY Specimen Type: SERUM No comment entered. Ordering Provider: SILVIA REDDY Report Released Date/Time: Aug 11, 2024 03:58 PM Reporting Lab: [facility] [place] [address] Performing Lab: [facility] [place] [address] VITAMIN D, 25-HYDROXY 8.9 ng/mL L 30-96 Aug 14, 2024 06:[address] [facility] COMPREHENSIVE METABOLIC PANEL Specimen Type: PLASMA Comment: No hemolysis noted. Ordering Provider: SILVIA REDDY Report Released Date/Time: Aug 11, 2024 03:58 PM Reporting Lab: [facility] [facility] [place] [address] Performing Lab: [facility] [place] [address] CREATININE 0.75 mg/dL 0.70-1.30 UREA NITROGEN 13.6 [...] >60 Aug 14, 2024 06:[address] [facility] CBC Specimen Type: BLOOD No comment entered. Ordering Provider: SILVIA REDDY Report Released Date/Time: Aug 11, 2024 03:58 PM Reporting Lab: [facility] [address] Performing Lab: [facility] [address] WBC 4.1 10*3/uL 3.6-11.2 RBC 3.20 10*6/uL [...] 10*3/uL 0.00-0.20 Aug 14, 2024 05:[address] [facility] GLUCOSE,BLOOD-poct (STL) Specimen Type: BLOOD Comment: Test Performed by: [id number] Meter #: [id number] Ordering Provider: SILVIA REDDY Report Released Date/Time: Aug 14, 2024 05:52 AM Reporting Lab: [facility] [address] Performing Lab: [facility] [address] GLUCOSE,BLOOD- poct (STL) 135 mg/dL H -Aug 13, 2024 04:[address] [facility] GLUCOSE,BLOOD-poct (STL) Specimen Type: BLOOD Comment: Test Performed by: [id number] Meter #: [id number] Ordering Provider: SILVIA REDDY Report Released Date/Time: Aug 13, 2024 04:41 PM Reporting Lab: [facility] [address] Performing Lab: [facility] [address] GLUCOSE,BLOOD- poct (STL) 181 mg/dL H Aug 13, 2024 11:[address] [facility] GLUCOSE,BLOOD-poct (STL) Specimen Type: BLOOD Comment: Test Performed by: [id number] Meter #: [id number] Ordering Provider: SILVIA REDDY Report Released Date/Time: Aug 13, 2024 03:55 PM Reporting Lab: [facility] [address] Performing Lab: [facility] [address] GLUCOSE,BLOOD- poct (STL) 140 mg/dL H Aug 13, 2024 05:[address] [facility] GLUCOSE,BLOOD-poct (STL) Specimen Type: BLOOD Comment: Test Performed by: [id number] Meter #: [id number] Ordering Provider: SILVIA REDDY Report Released Date/Time: Aug 13, 2024 06:20 AM Reporting Lab: [facility] [address] Performing Lab: [facility] [address] GLUCOSE,BLOOD- poct (STL) 112 mg/dL H -Aug 12, 2024 04:[address] [facility] GLUCOSE,BLOOD-poct (STL) Specimen Type: BLOOD Comment: Test Performed by: [id number] Meter #: [id number] Ordering Provider: SILVIA REDDY Report Released Date/Time: Aug 12, 2024 04:47 PM Reporting Lab: [facility] [address] Performing Lab: [facility] [address] GLUCOSE,BLOOD- poct (STL) 128 mg/dL H -Aug 12, 2024 11:[address] [facility] GLUCOSE,BLOOD-poct (STL) Specimen Type: BLOOD Comment: Test Performed by: [id number] Meter #: [id number] Ordering Provider: SILVIA REDDY Report Released Date/Time: Aug 12, 2024 11:45 AM Reporting Lab: [facility] [address] Performing Lab: [facility] [address] GLUCOSE,BLOOD- poct (STL) 188 mg/dL H -Aug 12, 2024 06:[address] [facility] GLUCOSE,BLOOD-poct (STL) Specimen Type: BLOOD Comment: Test Performed by: [id number] Meter #: [id number] Ordering Provider: SILVIA REDDY Report Released Date/Time: Aug 12, 2024 06:25 AM Reporting Lab: [facility] [address] Performing Lab: [facility] [address] GLUCOSE,BLOOD- poct (STL) 116 mg/dL H -Aug 11, 2024 04:[address] [facility] GLUCOSE,BLOOD-poct (STL) Specimen Type: BLOOD Comment: Test Performed by: [id number] Meter #: [id number] Ordering Provider: SILVIA REDDY Report Released Date/Time: Aug 11, 2024 04:27 PM Reporting Lab: [facility] [address] Performing Lab: [facility] [address] GLUCOSE,BLOOD- poct (STL) 184 mg/dL H 72-99 Aug 11, 2024 01:[address] [facility] MRSA SURVL NARES DNA Specimen [...] Aug 11, 2024 02:03 PM Reporting Lab: [facility] [address] [place] [phone] Performing Lab: [address] [address] MRSA SURVL NARES DNA Negative Negative Vital Signs: All taken on the encounter date This section contains inpatient and outpatient Vital Signs collected on the date of the Encounter. Date/Time Temperature Pulse Blood Pressure Respiratory Rate SP02 Pain Height Weight Body Mass Index Source Aug 22, 2024 07:17 PM 98.1 74 117/[address] [facility] Aug 22, 2024 10:30 AM 98.1 55 104/[address] [facility] Aug 22, 2024 05:18 AM 97.9 76 120/[address] [facility] Advance Directives: All historical and current Section Date Range: From patient's date of to the date document was created. This section includes ALL of a patient's completed or amended [place] Advance and Rescinded Directives. The entries below indicate that a directive exists for the patient, but an actual copy is not included with this document. The data comes from all [place] facilities. Date Advance Directives Provider Source Jan 19, 2017 ADVANCE DIRECTIVE DISCUSSION CATIAERICK Graham [facility] Encounter Notes: All associated encounter notes This section contains the clinical notes associated to the Encounter. 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 Pain Level: None O: participated in the following tasks this date in OT - Bed mobility: (I) Pivot transfer to/from bed and w/c: (I) Donned shoes (I) while seated. Ambulated to OT from room with F22 (I). Transfers: Stepping in/out of tub with grab bars to sit on shower chair (I). UE arm bike on minimal resistance with no pain reported at CABG site. Warm handoff to PT. Education: was ready to learn and verbalized understanding of the following information this date. _X_Self Care _X_Transfer training _X_HEP _X_Call light/alert nursing for mobility _X_Adaptive equipment use ___Modality used ___Other Equipment Issued: GRAB BAR (E0241): 16 X 1, 24 X 1 GRAB BAR - TUB (E0246) HAND HELD SHOWER (DL189) VICE PRESIDENT FOR INSTRUCTION (A9281) SHOWER CHAIR (E0245): Regular SPONGE (DL187): Long-handled Equipment pending/not ordered: None A: Vet admitted to [facility] following CABG and pacemaker placement. Intervention this date was focused on bed mobility, transfers, and UE endurance, and adaptive equipment review for shower. [place] response to tx/progress: Vet did well with tasks this date. No pain with minimal resistant UE exercises. Ready for d/c home. Barriers: None would benefit from OT for the continuation of the following plan of care: Treatment Plan: _x_ADLs _x_Transfers _X_endurance _x_Adaptive equipment Assessment Discharge recommendation: Return home. P: Vet to d/c tomorrow to his home. D/C note to follow. SHORT TERM GOALS: 1. will demo UB drsg with Indep - [...] in Short Blessed Test - NOT MET Time in/out: 10:30am-11:00am Total Minutes: 30 min Evaluating Therapist: Jonah CEDENO and OT reviewed and agreed upon objective and assessment information regarding veterans current tx plan and goals. (ICD-10-CM I25.729) Treatment codes: ___ 43491 Ther Activity _X_ 70509 Ther Exercise _X_ 53262 Self Care ___ 73045 Thrptc Intervent Cognitive Function, Initial ___ 48377 Thrptc Intervent Cognitive Function, Ea Addl 15 min -Location of visit: [X] room [X]OT gym -Other people involved in treatment [X]None []Included: /es/ [facility]uli[employer] Internist Signed: 08/23/2024 09:11 JOAN MENDEZ [facility]
--- OUTSIDE RECORDS SUMMARY | 2024-11-17 04:11 | XMS_ITS | Encounter Summary ---
Author Name [facility] [place] [facility] [place] Address [address] [place] [address] Care Team Providers Care Certifier Name Role Phone MANUEL THOMAS Primary Care [...] PART A Apr 08, 2017 PART A [id number] ASHLEY WALKER PATIENT Selected Encounter This section includes the information on record at [place] for the Encounter. 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 This section includes future appointments and future orders which are active, pending or scheduled. Future Appointments This section includes appointments that were scheduled to occur 6 months from the date of the Encounter, up to a maximum of 20 appointments. The data comes from all [facility]. Appointment Date/Time Appointment Type Appointme nt Facility Name Aug 30, 2024 09:30 AM AMBULATORY [facility] MEDICINE [facility] Aug 31, 2024 01:00 PM AMBULATORY - SURGERY [facility] Sep 21, 2024 01:30 [...] 2024 10:30 AM AMBULATORY - SURGERY [facility] Nov 21, 2024 10:00 AM AMBULATORY - NONE [facility] Dec 11, 2024 10:30 AM [...] of theEncounter. The data comes from all [facility]. Test Date/Time Test Type Test Details Facility Name Aug 02, 2024 12:00 AM Laboratory - Chemistry Order CBC BLOOD STAT SP [facility] Aug 02, 2024 12:00 AM Laboratory - Chemistry Order COMPREHENSIVE METABOLIC PANEL GREEN LI/HEP BLD/PLAS PLASMA SP [facility] Aug 17, 2024 03:47 PM Consult Order [facility] Cons Bedside [facility] Lab Results: +/- 30 days [...] Range Comment Aug 23, 2024 08:21 AM [facility] MAGNESIUM Specimen Type: PLASMA No comment entered. Ordering Provider: SILVIA REDDY Report Released Date/Time: Aug 22, 2024 11:26 AM Reporting Lab: [facility] [address] Performing Lab: [facility] [address] MAGNESIUM 1.8 mg/dL 1.6-2.6 Aug 23, 2024 08:21 AM [facility] CBC Specimen Type: BLOOD No comment entered. Ordering Provider: SILVIA REDDY Report Released Date/Time: Aug 22, 2024 11:19 AM Reporting Lab: [facility] [address] Performing Lab: [facility] [address] WBC 4.0 10*3/uL 3.6-11.2 RBC 3.65 10*6/uL [...] 10*3/uL 0.00-0.20 Aug 23, 2024 05:12 AM [facility] GLUCOSE,BLOOD-poct (STL) Specimen Type: BLOOD Comment: Test Performed by: [id number] Meter #: [id number] Ordering Provider: SILVIA REDDY Report Released Date/Time: Aug 23, 2024 05:23 AM Reporting Lab: [facility] [address] Performing Lab: [facility] [address] GLUCOSE,BLOOD- poct (STL) 99 mg/dL 72-99 Aug 23, 2024 02:45 AM [facility] OCCULT BLOOD FIT X1 SCREEN Specimen Type: FECES No comment entered. Ordering Provider: SILVIA REDDY Report Released Date/Time: Aug 22, 2024 11:23 AM Reporting Lab: [facility] [address] [facility] [address] Performing Lab: [address] [address] OCCULT BLOOD (FIT) #1 OF 1 Negative Negative Aug 22, 2024 07:30 PM [facility] OCCULT BLOOD FIT X1 SCREEN Specimen Type: FECES No comment entered. Ordering Provider: SILVIA REDDY Report Released Date/Time: Aug 22, 2024 11:23 AM Reporting Lab: [address] [address] Performing Lab: [facility] [address] [place] [address] OCCULT BLOOD (FIT) #1 OF 1 Negative Negative Aug 22, 2024 06:15 PM [facility] OCCULT BLOOD FIT X1 SCREEN Specimen Type: FECES No comment entered. Ordering Provider: SILVIA REDDY Report Released Date/Time: Aug 22, 2024 11:23 AM Reporting Lab: [address] [address] Performing Lab: [address] [address] OCCULT BLOOD (FIT) #1 OF 1 Negative Negative Aug 22, 2024 04:24 PM [facility] GLUCOSE,BLOOD-poct (STL) Specimen Type: BLOOD Comment: Test Performed by: [id number] Meter #: [id number] Ordering Provider: SILVIA REDDY Report Released Date/Time: Aug 22, 2024 04:36 PM Reporting Lab: [facility] [address] Performing Lab: [facility] [address] GLUCOSE,BLOOD- poct (STL) 176 mg/dL H 72-99 Aug 22, 2024 04:23 PM [facility] GLUCOSE,BLOOD-poct (STL) Specimen Type: BLOOD Comment: Test Performed by: [id number] Meter #: [id number] Ordering Provider: SILVIA REDDY Report Released Date/Time: Aug 22, 2024 04:36 PM Reporting Lab: [facility] [address] Performing Lab: [facility] [address] GLUCOSE,BLOOD- poct (STL) 221 mg/dL H 72-99 Aug 22, 2024 11:15 AM [facility] GLUCOSE,BLOOD-poct (STL) Specimen Type: BLOOD Comment: Test Performed by: [id number] Meter #: [id number] Ordering Provider: SILVIA REDDY Report Released Date/Time: Aug 22, 2024 11:27 AM Reporting Lab: [facility] [address] Performing Lab: [facility] [address] GLUCOSE,BLOOD- poct (STL) 140 mg/dL H 72-99 Aug 22, 2024 08:03 AM [facility] FERRITIN Specimen Type: SERUM No comment entered. Ordering Provider: JUDIT PERKINS Report Released Date/Time: Aug 18, 2024 11:01 AM Reporting Lab: [address] [address] Performing Lab: [address] [address] FERRITIN 79.50 ng/mL 22-275 Aug 22, 2024 08:03 AM [facility] IRON/TIBC PROFILE Specimen Type: SERUM No comment entered. Ordering Provider: JUDIT PERKINS Report Released Date/Time: Aug 18, 2024 11:01 AM Reporting Lab: [facility] [address] [place] [address] Performing Lab: [address] [address] TIBC 283 ug/dL 250-450 TRANSFERRIN 226 mg/dL 163-344 IRON SATURATION 7 L 20-50 IRON 19 ug/dL L 65-175 Aug 22, 2024 08:03 AM [facility] B12 Specimen Type: SERUM No comment entered. Ordering Provider: JUDIT PERKINS Report Released Date/Time: Aug 18, 2024 11:01 AM Reporting Lab: [facility] [address] Performing Lab: [facility] [address] B12 631 pg/mL 213-816 Aug 22, 2024 08:03 AM [facility] COMPREHENSIVE METABOLIC PANEL Specimen Type: PLASMA Comment: No hemolysis noted. Ordering Provider: SILVIA REDDY Report Released Date/Time: Aug 17, 2024 01:18 PM Reporting Lab: [facility] [address] [facility] [place] [address] Performing Lab: [facility] [address] [place] [address] CREATININE 0.80 mg/dL 0.7-1.3 UREA NITROGEN 9.7 [...] 94.0 >60 Aug 22, 2024 08:03 AM [facility] CBC Specimen Type: BLOOD No comment entered. Ordering Provider: SILVIA REDDY Report Released Date/Time: Aug 17, 2024 01:18 PM Reporting Lab: [facility] [address] Performing Lab: [facility] [address] WBC 3.5 10*3/uL L 3.6-11.2 RBC 3.23 [...] NRBC% 0 Aug 22, 2024 05:03 AM [facility] GLUCOSE,BLOOD-poct (STL) Specimen Type: BLOOD Comment: Test Performed by: [id number] Meter #: [id number] Ordering Provider: SILVIA REDDY Report Released Date/Time: Aug 22, 2024 06:17 AM Reporting Lab: [facility] [address] Performing Lab: [facility] [address] GLUCOSE,BLOOD- poct (STL) 170 mg/dL H 72-Aug 21, 2024 04:32 PM [facility] GLUCOSE,BLOOD-poct (STL) Specimen Type: BLOOD Comment: Test Performed by: [id number] Meter #: [id number] Ordering Provider: SILVIA REDDY Report Released Date/Time: Aug 21, 2024 04:49 PM Reporting Lab: [facility] [address] Performing Lab: [facility] [address] GLUCOSE,BLOOD- poct (STL) 169 mg/dL H 72-99 Aug 21, 2024 11:53 AM [facility] GLUCOSE,BLOOD-poct (STL) Specimen Type: BLOOD Comment: Test Performed by: [id number] Meter #: [id number] Ordering Provider: SILVIA REDDY Report Released Date/Time: Aug 21, 2024 12:11 PM Reporting Lab: [facility] [address] Performing Lab: [facility] [address] GLUCOSE,BLOOD- poct (STL) 149 mg/dL H 72-99 Aug 21, 2024 05:10 AM [facility] GLUCOSE,BLOOD-poct (STL) Specimen Type: BLOOD Comment: Test Performed by: [id number] Meter #: [id number] Ordering Provider: SILVIA REDDY Report Released Date/Time: Aug 21, 2024 05:27 AM Reporting Lab: [facility] [address] Performing Lab: [facility] [address] GLUCOSE,BLOOD- poct (STL) 118 mg/dL H 72-99 Aug 20, 2024 04:38 PM [facility] GLUCOSE,BLOOD-poct (STL) Specimen Type: BLOOD Comment: Test Performed by: [id number] Meter #: [id number] Ordering Provider: SILVIA REDDY Report Released Date/Time: Aug 21, 2024 01:55 AM Reporting Lab: [facility] [address] Performing Lab: [facility] [address] GLUCOSE,BLOOD- poct (STL) 169 mg/dL H 72-99 Aug 20, 2024 04:36 PM [facility] GLUCOSE,BLOOD-poct (STL) Specimen Type: BLOOD Comment: Test Performed by: [id number] Meter #: [id number] Ordering Provider: SILVIA REDDY Report Released Date/Time: Aug 21, 2024 01:55 AM Reporting Lab: [facility] [address] Performing Lab: [facility] [address] GLUCOSE,BLOOD- poct (STL) 395 mg/dL H -Aug 20, 2024 11:45 AM [facility] GLUCOSE,BLOOD-poct (STL) Specimen Type: BLOOD Comment: Test Performed by: [id number] Meter #: [id number] Ordering Provider: SILVIA REDDY Report Released Date/Time: Aug 20, 2024 11:56 AM Reporting Lab: [facility] [address] Performing Lab: [facility] [address] GLUCOSE,BLOOD- poct (STL) 169 mg/dL H -Aug 20, 2024 05:06 AM [facility] GLUCOSE,BLOOD-poct (STL) Specimen Type: BLOOD Comment: Test Performed by: [id number] Meter #: [id number] Ordering Provider: SILVIA REDDY Report Released Date/Time: Aug 20, 2024 06:05 AM Reporting Lab: [facility] [address] Performing Lab: [facility] [address] GLUCOSE,BLOOD- poct (STL) 115 mg/dL H Aug 19, 2024 04:23 PM [facility] GLUCOSE,BLOOD-poct (STL) Specimen Type: BLOOD Comment: Test Performed by: [id number] Meter #: [id number] Ordering Provider: SILVIA REDDY Report Released Date/Time: Aug 19, 2024 05:54 PM Reporting Lab: [facility] [address] Performing Lab: [facility] [address] GLUCOSE,BLOOD- poct (STL) 137 mg/dL H Aug 19, 2024 11:28 AM [facility] GLUCOSE,BLOOD-poct (STL) Specimen Type: BLOOD Comment: Test Performed by: [id number] Meter #: [id number] Ordering Provider: SILVIA REDDY Report Released Date/Time: Aug 19, 2024 11:51 AM Reporting Lab: [facility] [address] Performing Lab: [facility] [address] GLUCOSE,BLOOD- poct (STL) 190 mg/dL H 72-Aug 19, 2024 05:21 AM [facility] GLUCOSE,BLOOD-poct (STL) Specimen Type: BLOOD Comment: Test Performed by: [id number] Meter #: [id number] Ordering Provider: SILVIA REDDY Report Released Date/Time: Aug 19, 2024 05:56 AM Reporting Lab: [facility] [address] Performing Lab: [facility] [address] GLUCOSE,BLOOD- poct (STL) 130 mg/dL H -Aug 18, 2024 04:49 PM [facility] GLUCOSE,BLOOD-poct (STL) Specimen Type: BLOOD Comment: Test Performed by: [id number] Meter #: [id number] Ordering Provider: SILVIA REDDY Report Released Date/Time: Aug 18, 2024 05:01 PM Reporting Lab: [facility] [address] Performing Lab: [facility] [address] GLUCOSE,BLOOD- poct (STL) 129 mg/dL H 72-Aug 18, 2024 11:23 AM [facility] GLUCOSE,BLOOD-poct (STL) Specimen Type: BLOOD Comment: Test Performed by: [id number] Meter #: [id number] Ordering Provider: SILVIA REDDY Report Released Date/Time: Aug 18, 2024 11:41 AM Reporting Lab: [facility] [address] Performing Lab: [facility] [address] GLUCOSE,BLOOD- poct (STL) 180 mg/dL H 72-Aug 18, 2024 05:08 AM [facility] GLUCOSE,BLOOD-poct (STL) Specimen Type: BLOOD Comment: Test Performed by: [id number] Meter #: [id number] Ordering Provider: SILVIA REDDY Report Released Date/Time: Aug 18, 2024 05:31 AM Reporting Lab: [facility] [address] Performing Lab: [facility] [address] GLUCOSE,BLOOD- poct (STL) 127 mg/dL H -Aug 17, 2024 07:32 PM [facility] GLUCOSE,BLOOD-poct (STL) Specimen Type: BLOOD Comment: Test Performed by: [id number] Meter #: [id number] Ordering Provider: SILVIA REDDY Report Released Date/Time: Aug 17, 2024 07:59 PM Reporting Lab: [facility] [address] Performing Lab: [facility] [address] GLUCOSE,BLOOD- poct (STL) 154 mg/dL H 72-Aug 17, 2024 04:24 PM [facility] GLUCOSE,BLOOD-poct (STL) Specimen Type: BLOOD Comment: Test Performed by: [id number] Meter #: [id number] Ordering Provider: SILVIA REDDY Report Released Date/Time: Aug 17, 2024 04:35 PM Reporting Lab: [facility] [address] Performing Lab: [facility] [address] GLUCOSE,BLOOD- poct (STL) 178 mg/dL H Aug 17, 2024 05:09 AM [facility] GLUCOSE,BLOOD-poct (STL) Specimen Type: BLOOD Comment: Test Performed by: [id number] Meter #: [id number] Ordering Provider: SILVIA REDDY Report Released Date/Time: Aug 17, 2024 05:54 AM Reporting Lab: [facility] [address] Performing Lab: [facility] [address] GLUCOSE,BLOOD- poct (STL) 124 mg/dL H Aug 16, 2024 07:40 PM [facility] GLUCOSE,BLOOD-poct (STL) Specimen Type: BLOOD Comment: Test Performed by: [id number] Meter #: [id number] Ordering Provider: SILVIA REDDY Report Released Date/Time: Aug 16, 2024 08:28 PM Reporting Lab: [facility] [address] Performing Lab: [facility] [address] GLUCOSE,BLOOD- poct (STL) 144 mg/dL H Aug 16, 2024 04:19 PM [facility] GLUCOSE,BLOOD-poct (STL) Specimen Type: BLOOD Comment: Test Performed by: [id number] Meter #: [id number] Ordering Provider: SILVIA REDDY Report Released Date/Time: Aug 16, 2024 04:45 PM Reporting Lab: [facility] [address] Performing Lab: [facility] [address] GLUCOSE,BLOOD- poct (STL) 138 mg/dL H Aug 16, 2024 11:52 AM [facility] GLUCOSE,BLOOD-poct (STL) Specimen Type: BLOOD Comment: Test Performed by: [id number] Meter #: [id number] Ordering Provider: SILVIA REDDY Report Released Date/Time: Aug 16, 2024 12:04 PM Reporting Lab: [facility] [address] Performing Lab: [facility] [address] GLUCOSE,BLOOD- poct (STL) 135 mg/dL H -Aug 16, 2024 05:24 AM [facility] GLUCOSE,BLOOD-poct (STL) Specimen Type: BLOOD Comment: Test Performed by: [id number] Meter #: [id number] Ordering Provider: SILVIA REDDY Report Released Date/Time: Aug 16, 2024 05:38 AM Reporting Lab: [facility] [address] Performing Lab: [facility] [address] GLUCOSE,BLOOD- poct (STL) 151 mg/dL H Aug 15, 2024 07:31 PM [facility] GLUCOSE,BLOOD-poct (STL) Specimen Type: BLOOD Comment: Test Performed by: [id number] Meter #: [id number] Ordering Provider: SILVIA REDDY Report Released Date/Time: Aug 15, 2024 08:07 PM Reporting Lab: [facility] [address] Performing Lab: [facility] [address] GLUCOSE,BLOOD- poct (STL) 173 mg/dL H Aug 15, 2024 04:18 PM [facility] GLUCOSE,BLOOD-poct (STL) Specimen Type: BLOOD Comment: Test Performed by: [id number] Meter #: [id number] Ordering Provider: SILVIA REDDY Report Released Date/Time: Aug 15, 2024 04:59 PM Reporting Lab: [facility] [address] Performing Lab: [facility] [address] GLUCOSE,BLOOD- poct (STL) 136 mg/dL H 72-Aug 15, 2024 04:16 PM [facility] GLUCOSE,BLOOD-poct (STL) Specimen Type: BLOOD Comment: Test Performed by: [id number] Meter #: [id number] Ordering Provider: SILVIA REDDY Report Released Date/Time: Aug 15, 2024 04:59 PM Reporting Lab: [facility] [address] Performing Lab: [facility] [address] GLUCOSE,BLOOD- poct (STL) 194 mg/dL H -Aug 15, 2024 11:39 AM [facility] GLUCOSE,BLOOD-poct (STL) Specimen Type: BLOOD Comment: Test Performed by: [id number] Meter #: [id number] Ordering Provider: SILVIA REDDY Report Released Date/Time: Aug 15, 2024 12:00 PM Reporting Lab: [facility] [address] Performing Lab: [facility] [address] GLUCOSE,BLOOD- poct (STL) 127 mg/dL H 72-Aug 15, 2024 05:07 AM [facility] GLUCOSE,BLOOD-poct (STL) Specimen Type: BLOOD Comment: Test Performed by: [id number] Meter #: [id number] Ordering Provider: SILVIA REDDY Report Released Date/Time: Aug 15, 2024 06:14 AM Reporting Lab: [facility] [address] Performing Lab: [facility] [address] GLUCOSE,BLOOD- poct (STL) 151 mg/dL H -Aug 14, 2024 04:22 PM [facility] GLUCOSE,BLOOD-poct (STL) Specimen Type: BLOOD Comment: Test Performed by: [id number] Meter #: [id number] Ordering Provider: SILVIA REDDY Report Released Date/Time: Aug 14, 2024 04:52 PM Reporting Lab: [facility] [address] Performing Lab: [facility] [address] GLUCOSE,BLOOD- poct (STL) 129 mg/dL H Aug 14, 2024 11:21 AM [facility] GLUCOSE,BLOOD-poct (STL) Specimen Type: BLOOD Comment: Test Performed by: [id number] Meter #: [id number] Ordering Provider: SILVIA REDDY Report Released Date/Time: Aug 14, 2024 11:37 AM Reporting Lab: [facility] [address] Performing Lab: [facility] [address] GLUCOSE,BLOOD- poct (STL) 135 mg/dL H Aug 14, 2024 06:59 AM [facility] QUANTIFERON-TB,4 TUBE Specimen Type: [...] For additional information, please refer to http://education. [employer])/faq/XUV005 (This link is being provided for information/ educational purposes only.) Test Performed by [facility], [facility], [address] [place] [address] Tommie Garcia M.D., Ph.D., Director of Laboratories , [facility] [id number] Ordering Provider: SILVIA REDDY Report Released Date/Time: Aug 11, 2024 03:58 PM Reporting Lab: [facility] [address] [place] [id number] Performing Lab: [facility] [id number] [place] [address] .NIL - QUANTIFERON 0.04 [IU]/mL .MITOGEN-NIL 0.39 [IU]/mL .QUANTIFERON INDETERMINATE NEGATIVE .TB1-NIL <0.00 [IU]/mL .TB2-NIL <0.00 [IU]/mL Aug 14, 2024 06:59 AM [facility] MAGNESIUM Specimen Type: PLASMA Comment: No hemolysis noted. Ordering Provider: SILVIA REDDY Report Released Date/Time: Aug 11, 2024 03:58 PM Reporting Lab: [facility] [address] Performing Lab: [facility] [address] MAGNESIUM 1.9 mg/dL 1.6-2.6 Aug 14, 2024 06:59 AM [facility] B12 Specimen Type: SERUM No comment entered. Ordering Provider: SILVIA REDDY Report Released Date/Time: Aug 11, 2024 03:58 PM Reporting Lab: [facility] [address] Performing Lab: [facility] [address] B12 757 pg/mL 213-816 Aug 14, 2024 06:59 AM [facility] FOLATE (L-MA) Specimen Type: SERUM No comment entered. Ordering Provider: SILVIA REDDY Report Released Date/Time: Aug 11, 2024 03:58 PM Reporting Lab: [facility] [address] Performing Lab: [facility] [address] FOLATE (L-MA) 6.8 ng/mL L 7-20 Aug 14, 2024 06:59 AM [facility] VITAMIN D, 25-HYDROXY Specimen Type: SERUM No comment entered. Ordering Provider: SILVIA REDDY Report Released Date/Time: Aug 11, 2024 03:58 PM Reporting Lab: [facility] [address] Performing Lab: [facility] [address] VITAMIN D, 25-HYDROXY 8.9 ng/mL L 30-96 Aug 14, 2024 06:59 AM [facility] COMPREHENSIVE METABOLIC PANEL Specimen Type: PLASMA Comment: No hemolysis noted. Ordering Provider: SILVIA REDDY Report Released Date/Time: Aug 11, 2024 03:58 PM Reporting Lab: [facility] [address] Performing Lab: [facility] [address] CREATININE 0.75 mg/dL 0.70-1.30 UREA NITROGEN 13.6 [...] 95.88 >60 Aug 14, 2024 06:59 AM [facility] CBC Specimen Type: BLOOD No comment entered. Ordering Provider: SILVIA REDDY Report Released Date/Time: Aug 11, 2024 03:58 PM Reporting Lab: [facility] [address] Performing Lab: [facility] [address] WBC 4.1 10*3/uL 3.6-11.2 RBC 3.20 10*6/uL [...] 10*3/uL 0.00-0.20 Aug 14, 2024 05:08 AM [facility] GLUCOSE,BLOOD-poct (STL) Specimen Type: BLOOD Comment: Test Performed by: [id number] Meter #: [id number] Ordering Provider: SILVIA REDDY Report Released Date/Time: Aug 14, 2024 05:52 AM Reporting Lab: [facility] [address] Performing Lab: [facility] [address] GLUCOSE,BLOOD- poct (STL) 135 mg/dL H -Aug 13, 2024 04:27 PM [facility] GLUCOSE,BLOOD-poct (STL) Specimen Type: BLOOD Comment: Test Performed by: [id number] Meter #: [id number] Ordering Provider: SILVIA REDDY Report Released Date/Time: Aug 13, 2024 04:41 PM Reporting Lab: [facility] [address] Performing Lab: [facility] [place] [address] GLUCOSE,BLOOD- poct (STL) 181 mg/dL H -Aug 13, 2024 11:33 AM [facility] GLUCOSE,BLOOD-poct (STL) Specimen Type: BLOOD Comment: Test Performed by: [id number] Meter #: [id number] Ordering Provider: SILVIA REDDY Report Released Date/Time: Aug 13, 2024 03:55 PM Reporting Lab: [facility] [address] Performing Lab: [facility] [place] [address] GLUCOSE,BLOOD- poct (STL) 140 mg/dL H -Aug 13, 2024 05:54 AM [facility] GLUCOSE,BLOOD-poct (STL) Specimen Type: BLOOD Comment: Test Performed by: [id number] Meter #: [id number] Ordering Provider: SILVIA REDDY Report Released Date/Time: Aug 13, 2024 06:20 AM Reporting Lab: [facility] [place] [address] Performing Lab: [facility] [address] GLUCOSE,BLOOD- poct (STL) 112 mg/dL H 72-Aug 12, 2024 04:35 PM [facility] GLUCOSE,BLOOD-poct (STL) Specimen Type: BLOOD Comment: Test Performed by: [id number] Meter #: [id number] Ordering Provider: SILVIA REDDY Report Released Date/Time: Aug 12, 2024 04:47 PM Reporting Lab: [facility] [address] Performing Lab: [facility] [address] GLUCOSE,BLOOD- poct (STL) 128 mg/dL H -Aug 12, 2024 11:26 AM [facility] GLUCOSE,BLOOD-poct (STL) Specimen Type: BLOOD Comment: Test Performed by: [id number] Meter #: [id number] Ordering Provider: SILVIA REDDY Report Released Date/Time: Aug 12, 2024 11:45 AM Reporting Lab: [facility] [address] Performing Lab: [facility] [address] GLUCOSE,BLOOD- poct (STL) 188 mg/dL H -Aug 12, 2024 06:13 AM [facility] GLUCOSE,BLOOD-poct (STL) Specimen Type: BLOOD Comment: Test Performed by: [id number] Meter #: [id number] Ordering Provider: SILVIA REDDY Report Released Date/Time: Aug 12, 2024 06:25 AM Reporting Lab: [facility] [address] Performing Lab: [facility] [address] GLUCOSE,BLOOD- poct (STL) 116 mg/dL H 72-99 Aug 11, 2024 04:10 PM [facility] GLUCOSE,BLOOD-poct (STL) Specimen Type: BLOOD Comment: Test Performed by: [id number] Meter #: [id number] Ordering Provider: SILVIA REDDY Report Released Date/Time: Aug 11, 2024 04:27 PM Reporting Lab: [facility] [address] Performing Lab: [facility] [address] GLUCOSE,BLOOD- poct (STL) 184 mg/dL H 72-99 Aug 11, 2024 01:44 PM [facility] MRSA SURVL NARES DNA [...] Aug 11, 2024 02:03 PM Reporting Lab: [facility] [address] [place] [phone] Performing Lab: [address] [address] MRSA SURVL NARES DNA Negative Negative Social [...] ity March 16, 2024 09:30 AM VA-TOBACCO QUIT 15 YRS OR MORE [facility] Tobacco Use History This section includes a history of the smoking, or tobacco-related health factors, that were collected on or before the date of the Encounter. The data comes from the [place] facility where the Encounter took place. Date/Time Smoking Status/Tobacco Use Comment F acility March 16, 2024 09:30 AM VA-TOBACCO QUIT 15 YRS OR MORE [facility] March 22, 2023 10:00 AM VA-TOBACCO FORMER USER [facility] March 22, 2023 10:00 AM VA-TOBACCO QUIT 15 YRS OR MORE [facility] Jan 29, 2022 03:00 PM VA-TOBACCO FORMER USER [facility] Jan 29, 2022 03:00 PM VA-TOBACCO QUIT 15 YRS OR MORE [facility] Feb 07, 2019 04:17 PM VA-TOBACCO FORMER USER [facility] Feb 07, 2019 04:17 PM VA-TOBACCO QUIT 15 YRS OR MORE [facility] March 09, 2018 12:36 PM QUIT TOBACCO >7 YEARS AGO [facility] Aug 05, 2017 02:36 PM QUIT TOBACCO >7 YEARS AGO [facility] Advance Directives: All historical and current Section Date Range: From patient's date of to the date document was created. This section includes ALL of a patient's completed or amended [place] Advance and Rescinded Directives. The entries below indicate that a directive exists for the patient, but an actual copy is not included with this document. The data comes from all [facility]. Date Advance Directives Provider Source Jan 19, 2017 ADVANCE DIRECTIVE DISCUSSION ERICK BARDALES [facility] Encounter Notes: All associated encounter notes This section contains the clinical notes associated to the Encounter. Date/Time Encounter Note(s) Provider Source Aug 28, 2024 10:38 AM ADDENDUM: LOCAL TITLE: Addendum STANDARD TITLE: ADDENDUM DATE OF NOTE: AUG 28, 2024@10:38:03 ENTRY DATE: AUG 28, 2024@10:38:04 AUTHOR: MANUEL THOMAS EXP COSIGNER: URGENCY: STATUS: COMPLETED RTC entered. please schedule for next week f2f. /camryn thomas M.D. Staff Physician Signed: 08/28/2024 10:38 Receipt Acknowledged By: 08/28/2024 11:18 /shen/ EMILIE SOUSA [employer] --- Original Document --- 08/24/24 POST DISCHARGE CONTACT: Location of Discharge: Hospital Contact attempt: 2nd identified by the following: Full Name Full Social Security Number (SSN) Date of Contact made through telephone call Patient/Other contacted. Patient Chief complaint/reason for call: Post D/C F/U What is the patient's goal: Post Hospital Discharge Follow-up and review of plan of care Allergy Review: Patient has answered NKA Allergy list reviewed and remains current. Post Discharge Follow-up: Discharge from: [facility] Date of admission: -08/11/24 Date of discharge: -08/23/24 Discharge diagnosis: -strengthening after your bypass heart surgery and your pacemaker/defib placement Did you receive a copy of your discharge instructions and medication list? Yes Reason for hospitalization/Emergency Department/Urgent Care visit: -planned surgery for bypass heart surgery and your pacemaker/defib placement [place]/Caregiver states condition has improved. Symptoms to monitor for health maintenance: -no chest pain, SOB, increased endurance, Good BS and BP control Confirmed the below changes to medications, equipment or supplies: - Medication Review: The below list was reviewed with the patient/contact New: - 1. Clopidogrel 75MG TAB Daily for clot prevention 2. Ergocalciferol 1,250MCG (D2-50,000UNIT) CAP weekly for vitamin D replacement You take once a week on Mondays. 3. Folic Acid 1MG TAB daily for replacement 4. Ferrous sulfate 325MG TAB daily for replacement 5. Magnesium 400MG TAB twice a day for replacement Changed: - 1. Atorvastatin 80MG TAB daily for cholesterol was increased 2. Omeprazole 40MG EC CAP daily dose was increased for GERD 3. Metformin 750MG 24HR SA TAB dose was decreased Stopped: - 1. Bumetanide was stopped 2. Meloxicam stopped 3. No Advil, naproxen or ibuprofen 4. Insulin aspart has stopped 5. Insulin Glargine has stopped 6. Sacubitril/vlasartan was stopped 7. Semaglutide was stopped Current meds including any OTC, herbal, and/or non-VA meds: - A & D OINT APPLY LIBERALLYtwice daily ALBUTEROL 90MCG (CFC-F) 200D ORAL INHL 1 PUFF as needed 4x daily ASPIRIN 81MG EC TAB daily CARBOXYMETHYLCELLULOSE NA 0.5% OPH SOLN as needed CARVEDILOL 6.25MG TAB 1/2 tab twice a day DEXTROSE 24GM/31GM SQUEEZE TUBE 1 tube as needed DULOXETINE HCL 60MG EC CAP daily ISOSORBIDE MONONITRATE 30MG SA TAB 1/2 tabe daily METHOCARBAMOL 500MG TAB twice a day as needed MULTIVITAMIN CAP/TAB daily PREGABALIN 100MG ORAL CAP twice a day Do you have any questions related to your medications? No Medications, equipment or supplies were obtained/purchased. yes Primary Diagnosis at Discharge: Other Diagnosis: --strengthening after your bypass heart surgery and your pacemaker/defib placement Follow up Service Referrals: No follow up service needs identified at this time Have home services (including nurse) &/or equipment arrived as expected? Skilled HH ordered Future Appointments: Informed, discussed and confirmed next scheduled appointments 09/08/2024 11:30 [facility] QI INPATIENT APPOINTMENT 09/29/2024 12:30 [facility]-CARDIOLOGY HOUSE FELLOW 1 INPATIENT APPOINTMENT 10/02/2024 09:30 [facility] PACT STAR RES 2 INPATIENT 09/12/[address] Mckee Cardiothoracic Surgery 1315/ patient to get CXR 30 minuutes prior to appointment across from office Education Provided: The below discharge instructions were reviewed with the patient/contact Diet: -2gm Sodium: -DM Activity: -Activity as tolerated Other (specify below): No lifting, pushing or pulling greater than 10 lbs. No driving until released by your surgeon. Treatments/specific follow-up (labs, ancillary, non-VA contact, etc.): -Your blood sugar medication has been adjusted and your insulin and semaglutide have been stopped. Your Pharm D Marjorie will be following and helping you as you need to adjust your diabetic medication. Continue to monitor your diet and keep a blood sugar log -You are not on any diuretics and need to monitor your weight daily. If you gain more than 2lbs in one day or 5 lbs in in 3 days make sure your pcp is aware. You may need to go back on your bumetanide. Signs/symptoms to seek help: -CALL YOUR DOCTOR IF YOU HAVE ANY OF THESE PROBLEMS: Cardiovascular Disease (heart problems): Gaining more than 2 pounds in one day, or 5 pounds in two days, Inability to tolerate your usual activities, Feeling of pressure or pain to the chest, back, jaw, shoulder, or arm, Chest pain not relieved by using nitroglycerin tablets , Increasing swelling Diabetes (blood sugar problems): Signs of low blood sugar (Dizziness/sleepiness/shakin ess/confusion/mental changes/sweating), Signs of high blood sugar (Confusion/urinating more/eating or drinking more than usual/stomach pain), Sores or wounds on your feet, Persistent high or low blood sugars, Nausea/vomiting/stomach pain that prevents adequate oral intake Call the [facility] Crisis Line 31/05 by dialing [phone] then press 1, if you are having thoughts of harming yourself or thoughts of suicide (transfer if needed/agreeable). For wounds, contact provider with any of the following signs/symptoms: Signs and symptoms include: * Pain, redness, swelling, or bleeding that gets worse * Foul smelling drainage from the wound * Fever of 100.4 F (38 C) or higher * Shaking or chills * Vomiting or nausea that doesn't go away * Numbness, coldness, or tingling around the wound * Changes in skin color around the wound * Opening of the wound CHF patients counseled on the following: Daily weight before breakfast - document it and compare to previous day Check for swelling in ankles, feet, legs and stomach Eat a low salt diet Balance activity and rest periods Signs & symptoms when to seek help Have home services (including nurse) &/or equipment arrived as expected? None ordered The below appointments were reviewed with the patient/contact: 09/08/2024 11:30 [facility]-PODIATRY QI 09/21/2024 13:30 [facility] PHONE PHARM 09/29/2024 12:30 [facility]-CARDIOLOGY HOUSE FELLOW 1 10/02/2024 09:30 [facility]-MAN PACT STAR RES 2 11/20/2024 10:30 YASH-OPTOMETRY 9 11/21/2024 10:00 YASH-DENTAL HYG 1 12/11/2024 10:30 [facility]-ENDOCRINOLOGY BAUERLE Is there any reason you might not be able to keep your scheduled follow up appointment? No Do you have any questions? No Patient/contact provided Primary Care phone number and encouraged to call if any questions or concerns. Reviewed after hours nurse line ext. [phone] and emergency room are available 31/05 for patient use. Patient/contact understanding of the plan of care was verified by teach back: Yes No notification required for this note. Length of time spent: 30 minutes /shen/ CHARITY HALL REGISTERED NURSE Signed: 08/24/2024 15:11 Receipt Acknowledged By: 08/28/2024 10:36 /shen/ manuel thomas M.D. Staff Physician 08/28/2024 ADDENDUM STATUS: UNSIGNED You may not VIEW this UNSIGNED Addendum. MANUEL THOMAS [facility] Aug 24, 2024 01:25 PM PRIMARY CARE NOTE: LOCAL TITLE: POST DISCHARGE CONTACT STANDARD TITLE: PRIMARY CARE NOTE DATE OF NOTE: AUG 24, 2024@13:25 ENTRY DATE: AUG 24, 2024@13:26:03 AUTHOR: CHARITY HALL EXP COSIGNER: URGENCY: STATUS: COMPLETED POST DISCHARGE CONTACT Has ADDENDA Location of Discharge: Hospital Contact attempt: 2nd identified by the following: Full Name Full Social Security Number (SSN) Date of Contact made through telephone call Patient/Other contacted. Patient Chief complaint/reason for call: Post D/C F/U What is the patient's goal: Post Hospital Discharge Follow-up and review of plan of care Allergy Review: Patient has answered NKA Allergy list reviewed and remains current. Post Discharge Follow-up: [facility] from: [facility] Date of admission: 08/11/24 Date of discharge: -08/23/24 Discharge diagnosis: -strengthening after your bypass heart surgery and your pacemaker/defib placement Did you receive a copy of your discharge instructions and medication list? Yes Reason for hospitalization/Emergency Department/Urgent Care visit: -planned surgery for bypass heart surgery and your pacemaker/defib placement /Caregiver states condition has improved. Symptoms to monitor for health maintenance: -no chest pain, SOB, increased endurance, Good BS and BP control Confirmed the below changes to medications, equipment or supplies: - Medication Review: The below list was reviewed with the patient/contact New: - 1. Clopidogrel 75MG TAB Daily for clot prevention 2. Ergocalciferol 1,250MCG (D2-50,000UNIT) CAP weekly for vitamin D replacement You take once a week on Mondays. 3. Folic Acid 1MG TAB daily for replacement 4. Ferrous sulfate 325MG TAB daily for replacement 5. Magnesium 400MG TAB twice a day for replacement Changed: - 1. Atorvastatin 80MG TAB daily for cholesterol was increased 2. Omeprazole 40MG EC CAP daily dose was increased for GERD 3. Metformin 750MG 24HR SA TAB dose was decreased Stopped: - 1. Bumetanide was stopped 2. Meloxicam stopped 3. No Advil, naproxen or ibuprofen 4. Insulin aspart has stopped 5. Insulin Glargine has stopped 6. Sacubitril/vlasartan was stopped 7. Semaglutide was stopped Current meds including any OTC, herbal, and/or non-VA meds: - A & D OINT APPLY LIBERALLYtwice daily ALBUTEROL 90MCG (CFC-F) 200D ORAL INHL 1 PUFF as needed 4x daily ASPIRIN 81MG EC TAB daily CARBOXYMETHYLCELLULOSE NA 0.5% OPH SOLN as needed CARVEDILOL 6.25MG TAB 1/2 tab twice a day DEXTROSE 24GM/31GM SQUEEZE TUBE 1 tube as needed DULOXETINE HCL 60MG EC CAP daily ISOSORBIDE MONONITRATE 30MG SA TAB 1/2 tabe daily METHOCARBAMOL 500MG TAB twice a day as needed MULTIVITAMIN CAP/TAB daily PREGABALIN 100MG ORAL CAP twice a day Do you have any questions related to your medications? No Medications, equipment or supplies were obtained/purchased. yes Primary Diagnosis at Discharge: Other Diagnosis: --strengthening after your bypass heart surgery and your pacemaker/defib placement Follow up Service Referrals: No follow up service needs identified at this time Have home services (including nurse) &/or equipment arrived as expected? Skilled HH ordered Future Appointments: Informed, discussed and confirmed next scheduled appointments 09/08/2024 11:30 [facility]PODIATRY QI INPATIENT APPOINTMENT 09/29/2024 12:30 YASH-CARDIOLOGY HOUSE FELLOW 1 INPATIENT APPOINTMENT 10/02/2024 09:30 YASH-MAN PACT STAR RES 2 INPATIENT 09/12/[address] Mckee Cardiothoracic Surgery 1315/ patient to get CXR 30 minuutes prior to appointment across from office Education Provided: The below discharge instructions were reviewed with the patient/contact Diet: -2gm Sodium: -DM Activity: -Activity as tolerated Other (specify below): No lifting, pushing or pulling greater than 10 lbs. No driving until released by your surgeon. Treatments/specific follow-up (labs, ancillary, non-VA contact, etc.): -Your blood sugar medication has been adjusted and your insulin and semaglutide have been stopped. Your Pharm D Marjorie will be following and helping you as you need to adjust your diabetic medication. Continue to monitor your diet and keep a blood sugar log -You are not on any diuretics and need to monitor your weight daily. If you gain more than 2lbs in one day or 5 lbs in in 3 days make sure your pcp is aware. You may need to go back on your bumetanide. Signs/symptoms to seek help: -CALL YOUR DOCTOR IF YOU HAVE ANY OF THESE PROBLEMS: Cardiovascular Disease (heart problems): Gaining more than 2 pounds in one day, or 5 pounds in two days, Inability to tolerate your usual activities, Feeling of pressure or pain to the chest, back, jaw, shoulder, or arm, Chest pain not relieved by using nitroglycerin tablets , Increasing swelling Diabetes (blood sugar problems): Signs of low blood sugar (Dizziness/sleepiness/shakin ess/confusion/mental changes/sweating), Signs of high blood sugar (Confusion/urinating more/eating or drinking more than usual/stomach pain), Sores or wounds on your feet, Persistent high or low blood sugars, Nausea/vomiting/stomach pain that prevents adequate oral intake Call the [facility] Crisis Line 31/05 by dialing 988 then press 1, if you are having thoughts of harming yourself or thoughts of suicide (transfer if needed/agreeable). For wounds, contact provider with any of the following signs/symptoms: Signs and symptoms include: * Pain, redness, swelling, or bleeding that gets worse * Foul smelling drainage from the wound * Fever of 100.4 F (38 C) or higher * Shaking or chills * Vomiting or nausea that doesn't go away * Numbness, coldness, or tingling around the wound * Changes in skin color around the wound * Opening of the wound CHF patients counseled on the following: Daily weight before breakfast - document it and compare to previous day Check for swelling in ankles, feet, legs and stomach Eat a low salt diet Balance activity and rest periods Signs & symptoms when to seek help Have home services (including nurse) &/or equipment arrived as expected? None ordered The below appointments were reviewed with the patient/contact: 09/08/2024 11:30 YASH-PODIATRY QI 09/21/2024 13:30 YASH-MAN PHONE PHARM 01 09/29/2024 12:30 YASH-CARDIOLOGY HOUSE FELLOW 1 10/02/2024 09:30 YASH-MAN PACT STAR RES 2 11/20/2024 10:30 YASH-OPTOMETRY 9 11/21/2024 10:00 YASH-DENTAL HYG 1 12/11/2024 10:30 YASH-ENDOCRINOLOGY BAUERLE Is there any reason you might not be able to keep your scheduled follow up appointment? No Do you have any questions? No Patient/contact provided Primary Care phone number and encouraged to call if any questions or concerns. Reviewed after hours nurse line ext. [phone] and emergency room are available 31/05 for patient use. Patient/contact understanding of the plan of care was verified by teach back: Yes No notification required for this note. Length of time spent: 30 minutes /shen/ CHARITY HALL REGISTERED NURSE Signed: 08/24/2024 15:11 Receipt Acknowledged By: 08/28/2024 10:36 /shen/ manuel thomas M.D. Staff Physician 08/28/2024 ADDENDUM STATUS: COMPLETED RTC entered. please schedule for next week f2f. /shen/ manuel thomas M.D. Staff Physician Signed: 08/28/2024 10:38 Receipt Acknowledged By: 08/28/2024 11:18 /shen/ EMILIE SOUSA [employer] SUPERVISOR 08/28/2024 ADDENDUM STATUS: COMPLETED MADE CONTACT ATTEMPT TO SCHEDULE PCP APPOINTMENT. DID NOT ANSWER, LEFT VOICEMAIL WITH CLINIC CONTACT INFORMATION FOR SCHEDULING AND SENT NO CONTACT LETTER. /camryn SOUSA [employer]PER[employer]OR Signed: 08/28/2024 11:19 CHARITY HALL [facility] Aug 24, 2024 11:49 AM PRIMARY CARE NOTE: LOCAL TITLE: POST DISCHARGE CONTACT STANDARD TITLE: PRIMARY CARE NOTE DATE OF NOTE: AUG 24, 2024@11:49 ENTRY DATE: AUG 24, 2024@11:49:22 AUTHOR: CHARITY HALL EXP COSIGNER: URGENCY: STATUS: COMPLETED Location of Discharge: Hospital Contact attempt: 1st Unable to make contact HIPAA compliant message left on voicemail and call back number [phone] opt# 2 provided. /camryn HALL REGISTERED NURSE Signed: 08/24/2024 11:50 CHARITY HALL [facility]
--- OUTSIDE RECORDS SUMMARY | 2024-11-17 04:11 | XMS_ITS | Encounter Summary ---
Author Name [facility] Address [address] [place] [address] Care Team Providers Care Airfield Manager Name Role Phone MANUEL BAIRD Primary [...] PART A Apr 08, 2017 PART A [id number] ASHLEY WALKER PATIENT Selected Encounter This section includes the information on record at [facility] for the Encounter. Date/Time Encounter Type Encounter Description Reason Pro vider Source Aug 23, 2024 03:34 PM Outpatient Encounter RE[facility] THERAPY SERVICE [facility] Encounter Template Text not used by [...] from all [facility]. Appointment Date/Time Appointment Type Appointme nt Facility Name Aug 24, 2024 10:00 AM AMBULATORY - MEDICINE [facility] Aug 24, 2024 10:30 AM AMBULATORY MEDICINE [facility] Aug 30, 2024 09:30 AM AMBULATORY MEDICINE [facility] Aug 31, 2024 01:00 PM AMBULATORY - SURGERY [facility] Sep 21, 2024 01:30 PM AMBULATORY - MEDICINE [facility] Sep 22, 2024 11:00 AM AMBULATORY - MEDICINE [facility] Sep 29, 2024 12:30 PM AMBULATORY - MEDICINE [facility] Oct 02, 2024 09:30 AM AMBULATORY - MEDICINE [facility] Nov 20, 2024 10:30 AM AMBULATORY - SURGERY [facility] Nov 21, 2024 10:00 AM AMBULATORY - NONE [facility] Dec 11, 2024 10:30 AM AMBULATORY - MEDICINE [facility] Active, Pending, and Scheduled Orders This [...] from all [facility]. Test Date/Time Test Type Test Details Facility Name Aug 02, 2024 12:00 AM Laboratory - Chemistry Order COMPREHENSIVE METABOLIC PANEL GREEN LI/HEP BLD/PLAS PLASMA SP [facility] Aug 02, 2024 12:00 AM Laboratory - Chemistry Order CBC BLOOD STAT SP [facility] Aug 17, 2024 03:47 PM Consult Order [facility] Cons Bedside [facility] Lab Results: +/- 30 days of [...] 22, 2024 11:26 AM Reporting Lab: [facility] [address] Performing Lab: [facility] [address] MAGNESIUM 1.8 mg/dL 1.6-2.6 Aug 23, 2024 08:21 AM [facility] CBC Specimen Type: BLOOD No comment entered. Ordering Provider: SILVIA REDDY Report Released Date/Time: Aug 22, 2024 11:19 AM Reporting Lab: [facility] [address] Performing Lab: [facility] [address] WBC 4.0 10*3/uL 3.6-11.2 RBC 3.65 10*6/uL [...] Specimen Type: BLOOD Comment: Test Performed by: [id number] Meter #: [id number] Ordering Provider: SILVIA REDDY Report Released Date/Time: Aug 23, 2024 05:23 AM Reporting Lab: [facility] [address] Performing Lab: [facility] [address] GLUCOSE,BLOOD- poct (STL) 99 mg/dL 72-99 Aug 23, 2024 02:45 AM [facility] OCCULT BLOOD FIT X1 SCREEN Specimen Type: FECES No comment entered. Ordering Provider: SILVIA REDDY Report Released Date/Time: Aug 22, 2024 11:23 AM Reporting Lab: [address] [address] Performing Lab: [facility] [address] [place] [address] OCCULT BLOOD (FIT) #1 OF 1 Negative Negative Aug 22, 2024 07:30 PM [facility] OCCULT BLOOD FIT X1 SCREEN Specimen Type: FECES No comment entered. Ordering Provider: SILVIA REDDY Report Released Date/Time: Aug 22, 2024 11:23 AM Reporting Lab: [facility] [address] [place] [address] Performing Lab: [facility] [address] [place] [address] OCCULT BLOOD (FIT) #1 OF 1 Negative Negative Aug 22, 2024 06:15 PM [facility] OCCULT BLOOD FIT X1 SCREEN Specimen Type: FECES No comment entered. Ordering Provider: SILVIA REDDY Report Released Date/Time: Aug 22, 2024 11:23 AM Reporting Lab: [address] [address] Performing Lab: [place] [address] [address] [facility] [address] OCCULT BLOOD (FIT) #1 OF 1 Negative Negative Aug 22, 2024 04:24 PM [facility] GLUCOSE,BLOOD-poct (STL) Specimen Type: BLOOD Comment: Test Performed by: [id number] Meter #: [id number] Ordering Provider: SILVIA REDDY Report Released Date/Time: Aug 22, 2024 04:36 PM Reporting Lab: [facility] [address] Performing Lab: [facility]1 [facility] [address] GLUCOSE,BLOOD- poct (STL) 176 mg/dL H -Aug 22, 2024 04:23 PM [facility] GLUCOSE,BLOOD-poct (STL) Specimen Type: BLOOD Comment: Test Performed by: [id number] Meter #: [id number] Ordering Provider: SILVIA REDDY Report Released Date/Time: Aug 22, 2024 04:36 PM Reporting Lab: [facility] [address] Performing Lab: [facility] [address] GLUCOSE,BLOOD- poct (STL) 221 mg/dL H 72-Aug 22, 2024 11:15 AM [facility] GLUCOSE,BLOOD-poct (STL) Specimen Type: BLOOD Comment: Test Performed by: [id number] Meter #: [id number] Ordering Provider: SILVIA REDDY Report Released Date/Time: Aug 22, 2024 11:27 AM Reporting Lab: [facility] [address] Performing Lab: [facility] [address] GLUCOSE,BLOOD- poct (STL) 140 mg/dL H 72-Aug 22, 2024 08:03 AM [facility] FERRITIN Specimen Type: SERUM No comment entered. Ordering Provider: JUDIT PERKINS Report Released Date/Time: Aug 18, 2024 11:01 AM Reporting Lab: [facility] [address] [place] [address] Performing Lab: [facility] [address] [place] [address] FERRITIN 79.50 ng/mL 22-275 Aug 22, 2024 08:03 AM [facility] IRON/TIBC PROFILE Specimen Type: SERUM No comment entered. Ordering Provider: JUDIT PERKINS Report Released Date/Time: Aug 18, 2024 11:01 AM Reporting Lab: [address] [address] Performing Lab: [place] [address] [place] [address] TIBC 283 ug/dL 250-450 TRANSFERRIN 226 mg/dL 163-344 IRON SATURATION 7 L 20-50 IRON 19 ug/dL L 65-175 Aug 22, 2024 08:03 AM [facility] B12 Specimen Type: SERUM No comment entered. Ordering Provider: JUDIT PERKINS Report Released Date/Time: Aug 18, 2024 11:01 AM Reporting Lab: [facility] [address] Performing Lab: [facility] [address] B12 631 pg/mL 213-816 Aug 22, 2024 08:03 AM [facility] COMPREHENSIVE METABOLIC PANEL Specimen Type: PLASMA Comment: No hemolysis noted. Ordering Provider: SILVIA REDDY Report Released Date/Time: Aug 17, 2024 01:18 PM Reporting Lab: [facility] [address] [place] [address] Performing Lab: [address] [address] CREATININE 0.80 mg/dL 0.7-1.3 UREA NITROGEN 9.7 [...] >60 Aug 22, 2024 08:03 AM [facility] CBC Specimen Type: BLOOD No comment entered. Ordering Provider: SILVIA REDDY Report Released Date/Time: Aug 17, 2024 01:18 PM Reporting Lab: [facility] [address] Performing Lab: [facility] [address] WBC 3.5 10*3/uL L 3.6-11.2 RBC 3.23 [...] Specimen Type: BLOOD Comment: Test Performed by: [id number] Meter #: [id number] Ordering Provider: SILVIA REDDY Report Released Date/Time: Aug 22, 2024 06:17 AM Reporting Lab: [facility]1 [facility] [address] Performing Lab: [facility] [address] GLUCOSE,BLOOD- poct (STL) 170 mg/dL H 72-Aug 21, 2024 04:32 PM [facility] GLUCOSE,BLOOD-poct (STL) Specimen Type: BLOOD Comment: Test Performed by: [id number] Meter #: [id number] Ordering Provider: SILVIA REDDY Report Released Date/Time: Aug 21, 2024 04:49 PM Reporting Lab: [facility]1 [facility] [address] Performing Lab: [facility] [address] GLUCOSE,BLOOD- poct (STL) 169 mg/dL H 72-99 Aug 21, 2024 11:53 AM [facility] GLUCOSE,BLOOD-poct (STL) Specimen Type: BLOOD Comment: Test Performed by: [id number] Meter #: [id number] Ordering Provider: SILVIA REDDY Report Released Date/Time: Aug 21, 2024 12:11 PM Reporting Lab: [facility] [facility] [address] Performing Lab: [facility]1 [facility] [address] GLUCOSE,BLOOD- poct (STL) 149 mg/dL H 72-99 Aug 21, 2024 05:10 AM [facility] GLUCOSE,BLOOD-poct (STL) Specimen Type: BLOOD Comment: Test Performed by: [id number] Meter #: [id number] Ordering Provider: SILVIA REDDY Report Released Date/Time: Aug 21, 2024 05:27 AM Reporting Lab: [facility]1 [place] [address] Performing Lab: [facility]1 [facility] [address] GLUCOSE,BLOOD- poct (STL) 118 mg/dL H 72-99 Aug 20, 2024 04:38 PM [facility] GLUCOSE,BLOOD-poct (STL) Specimen Type: BLOOD Comment: Test Performed by: [id number] Meter #: [id number] Ordering Provider: SILVIA REDDY Report Released Date/Time: Aug 21, 2024 01:55 AM Reporting Lab: [facility] [address] [place] [address] Performing Lab: [facility] [address] [place] [address] GLUCOSE,BLOOD- poct (STL) 169 mg/dL H 72-Aug 20, 2024 04:36 PM [facility] GLUCOSE,BLOOD-poct (STL) Specimen Type: BLOOD Comment: Test Performed by: [id number] Meter #: [id number] Ordering Provider: SILVIA REDDY Report Released Date/Time: Aug 21, 2024 01:55 AM Reporting Lab: [facility] [address] [place] [address] Performing Lab: [facility]1 [facility] [address] GLUCOSE,BLOOD- poct (STL) 395 mg/dL H 72-99 Aug 20, 2024 11:45 AM [facility] GLUCOSE,BLOOD-poct (STL) Specimen Type: BLOOD Comment: Test Performed by: [id number] Meter #: [id number] Ordering Provider: SILVIA REDDY Report Released Date/Time: Aug 20, 2024 11:56 AM Reporting Lab: [facility] [place] [address] Performing Lab: [facility] [address] GLUCOSE,BLOOD- poct (STL) 169 mg/dL H -Aug 20, 2024 05:06 AM [facility] GLUCOSE,BLOOD-poct (STL) Specimen Type: BLOOD Comment: Test Performed by: [id number] Meter #: [id number] Ordering Provider: SILVIA REDDY Report Released Date/Time: Aug 20, 2024 06:05 AM Reporting Lab: [facility] [address] Performing Lab: [facility]1 [facility] [address] GLUCOSE,BLOOD- poct (STL) 115 mg/dL H Aug 19, 2024 04:23 PM [facility] GLUCOSE,BLOOD-poct (STL) Specimen Type: BLOOD Comment: Test Performed by: [id number] Meter #: [id number] Ordering Provider: SILVIA REDDY Report Released Date/Time: Aug 19, 2024 05:54 PM Reporting Lab: [facility] [address] Performing Lab: [facility] [address] GLUCOSE,BLOOD- poct (STL) 137 mg/dL H Aug 19, 2024 11:28 AM [facility] GLUCOSE,BLOOD-poct (STL) Specimen Type: BLOOD Comment: Test Performed by: [id number] Meter #: [id number] Ordering Provider: SILVIA REDDY Report Released Date/Time: Aug 19, 2024 11:51 AM Reporting Lab: [facility] [address] Performing Lab: [facility] [address] GLUCOSE,BLOOD- poct (STL) 190 mg/dL H -Aug 19, 2024 05:21 AM [facility] GLUCOSE,BLOOD-poct (STL) Specimen Type: BLOOD Comment: Test Performed by: [id number] Meter #: [id number] Ordering Provider: SILVIA REDDY Report Released Date/Time: Aug 19, 2024 05:56 AM Reporting Lab: [facility]1 [facility] [address] Performing Lab: [facility] [address] GLUCOSE,BLOOD- poct (STL) 130 mg/dL H Aug 18, 2024 04:49 PM [facility] GLUCOSE,BLOOD-poct (STL) Specimen Type: BLOOD Comment: Test Performed by: [id number] Meter #: [id number] Ordering Provider: SILVIA REDDY Report Released Date/Time: Aug 18, 2024 05:01 PM Reporting Lab: [facility] [address] Performing Lab: [facility] [address] GLUCOSE,BLOOD- poct (STL) 129 mg/dL H Aug 18, 2024 11:23 AM [facility] GLUCOSE,BLOOD-poct (STL) Specimen Type: BLOOD Comment: Test Performed by: [id number] Meter #: [id number] Ordering Provider: SILVIA REDDY Report Released Date/Time: Aug 18, 2024 11:41 AM Reporting Lab: [facility]1 [facility] [address] Performing Lab: [facility]1 [facility] [address] GLUCOSE,BLOOD- poct (STL) 180 mg/dL H Aug 18, 2024 05:08 AM [facility] GLUCOSE,BLOOD-poct (STL) Specimen Type: BLOOD Comment: Test Performed by: [id number] Meter #: [id number] Ordering Provider: SILVIA REDDY Report Released Date/Time: Aug 18, 2024 05:31 AM Reporting Lab: [facility]1 [facility] [address] Performing Lab: [facility]1 [facility] [address] GLUCOSE,BLOOD- poct (STL) 127 mg/dL H 72-Aug 17, 2024 07:32 PM [facility] GLUCOSE,BLOOD-poct (STL) Specimen Type: BLOOD Comment: Test Performed by: [id number] Meter #: [id number] Ordering Provider: SILVIA REDDY Report Released Date/Time: Aug 17, 2024 07:59 PM Reporting Lab: [facility]1 [facility] [address] Performing Lab: [facility] [address]1 [place] [address] GLUCOSE,BLOOD- poct (STL) 154 mg/dL H -Aug 17, 2024 04:24 PM [facility] GLUCOSE,BLOOD-poct (STL) Specimen Type: BLOOD Comment: Test Performed by: [id number] Meter #: [id number] Ordering Provider: SILVIA REDDY Report Released Date/Time: Aug 17, 2024 04:35 PM Reporting Lab: [facility]1 [facility] [address] Performing Lab: [facility] [address] GLUCOSE,BLOOD- poct (STL) 178 mg/dL H 72-Aug 17, 2024 05:09 AM [facility] GLUCOSE,BLOOD-poct (STL) Specimen Type: BLOOD Comment: Test Performed by: [id number] Meter #: [id number] Ordering Provider: SILVIA REDDY Report Released Date/Time: Aug 17, 2024 05:54 AM Reporting Lab: [facility] [place] [address] Performing Lab: [facility] [address] GLUCOSE,BLOOD- poct (STL) 124 mg/dL H Aug 16, 2024 07:40 PM [facility] GLUCOSE,BLOOD-poct (STL) Specimen Type: BLOOD Comment: Test Performed by: [id number] Meter #: [id number] Ordering Provider: SILVIA REDDY Report Released Date/Time: Aug 16, 2024 08:28 PM Reporting Lab: [facility] [address] Performing Lab: [facility]1 [facility] [address] GLUCOSE,BLOOD- poct (STL) 144 mg/dL H Aug 16, 2024 04:19 PM [facility] GLUCOSE,BLOOD-poct (STL) Specimen Type: BLOOD Comment: Test Performed by: [id number] Meter #: [id number] Ordering Provider: SILVIA REDDY Report Released Date/Time: Aug 16, 2024 04:45 PM Reporting Lab: [facility] [address] Performing Lab: [facility]1 [facility] [address] GLUCOSE,BLOOD- poct (STL) 138 mg/dL H Aug 16, 2024 11:52 AM [facility] GLUCOSE,BLOOD-poct (STL) Specimen Type: BLOOD Comment: Test Performed by: [id number] Meter #: [id number] Ordering Provider: SILVIA REDDY Report Released Date/Time: Aug 16, 2024 12:04 PM Reporting Lab: [facility] [address] Performing Lab: [facility] [address] GLUCOSE,BLOOD- poct (STL) 135 mg/dL H Aug 16, 2024 05:24 AM [facility] GLUCOSE,BLOOD-poct (STL) Specimen Type: BLOOD Comment: Test Performed by: [id number] Meter #: [id number] Ordering Provider: SILVIA REDDY Report Released Date/Time: Aug 16, 2024 05:38 AM Reporting Lab: [facility]1 [facility] [address] Performing Lab: [facility] [address] GLUCOSE,BLOOD- poct (STL) 151 mg/dL H Aug 15, 2024 07:31 PM [facility] GLUCOSE,BLOOD-poct (STL) Specimen Type: BLOOD Comment: Test Performed by: [id number] Meter #: [id number] Ordering Provider: SILVIA REDDY Report Released Date/Time: Aug 15, 2024 08:07 PM Reporting Lab: [facility] [address] Performing Lab: [facility] [address] GLUCOSE,BLOOD- poct (STL) 173 mg/dL H Aug 15, 2024 04:18 PM [facility] GLUCOSE,BLOOD-poct (STL) Specimen Type: BLOOD Comment: Test Performed by: [id number] Meter #: [id number] Ordering Provider: SILVIA REDDY Report Released Date/Time: Aug 15, 2024 04:59 PM Reporting Lab: [facility] [address] Performing Lab: [facility]1 [facility] [address] GLUCOSE,BLOOD- poct (STL) 136 mg/dL H Aug 15, 2024 04:16 PM [facility] GLUCOSE,BLOOD-poct (STL) Specimen Type: BLOOD Comment: Test Performed by: [id number] Meter #: [id number] Ordering Provider: SILVIA REDDY Report Released Date/Time: Aug 15, 2024 04:59 PM Reporting Lab: [facility]1 [facility] [address] Performing Lab: [facility]1 [facility] [address] GLUCOSE,BLOOD- poct (STL) 194 mg/dL H 72-Aug 15, 2024 11:39 AM [facility] GLUCOSE,BLOOD-poct (STL) Specimen Type: BLOOD Comment: Test Performed by: [id number] Meter #: [id number] Ordering Provider: SILVIA REDDY Report Released Date/Time: Aug 15, 2024 12:00 PM Reporting Lab: [facility]1 [facility] [address] Performing Lab: [facility]1 [facility] [address] GLUCOSE,BLOOD- poct (STL) 127 mg/dL H -Aug 15, 2024 05:07 AM [facility] GLUCOSE,BLOOD-poct (STL) Specimen Type: BLOOD Comment: Test Performed by: [id number] Meter #: [id number] Ordering Provider: SILVIA REDDY Report Released Date/Time: Aug 15, 2024 06:14 AM Reporting Lab: [facility]1 [facility] [address] Performing Lab: [facility]1 [facility] [address] GLUCOSE,BLOOD- poct (STL) 151 mg/dL H 72-99 Aug 14, 2024 04:22 PM [facility] GLUCOSE,BLOOD-poct (STL) Specimen Type: BLOOD Comment: Test Performed by: [id number] Meter #: [id number] Ordering Provider: SILVIA REDDY Report Released Date/Time: Aug 14, 2024 04:52 PM Reporting Lab: [facility] [place] [address] Performing Lab: [facility] [address] GLUCOSE,BLOOD- poct (STL) 129 mg/dL H 72-99 Aug 14, 2024 11:21 AM [facility] GLUCOSE,BLOOD-poct (STL) Specimen Type: BLOOD Comment: Test Performed by: [id number] Meter #: [id number] Ordering Provider: SILVIA REDDY Report Released Date/Time: Aug 14, 2024 11:37 AM Reporting Lab: [facility] [address] Performing Lab: [facility] [address] GLUCOSE,BLOOD- poct (STL) 135 mg/dL H 72-Aug 14, 2024 06:59 AM [facility] QUANTIFERON-TB,4 TUBE Specimen Type: BLOOD [...] For additional information, please refer to http://education. Homeforswap. Luminetx/faq/HNN519 (This link is being provided for information/ educational purposes only.) Test Performed by Zyngenia Sander, [facility], [address] [place] [id number] Tommie Garcia M.D., Ph.D., Director of Laboratories , [facility] [id number] Ordering Provider: SILVIA REDDY Report Released Date/Time: Aug 11, 2024 03:58 PM Reporting Lab: [facility] [address] [place] [address] Performing Lab: [facility] [id number] [place] [id number] .NIL - QUANTIFERON 0.04 [IU]/mL .MITOGEN-NIL 0.39 [IU]/mL .QUANTIFERON INDETERMINATE NEGATIVE .TB1-NIL <0.00 [IU]/mL .TB2-NIL <0.00 [IU]/mL Aug 14, 2024 06:59 AM [facility] MAGNESIUM Specimen Type: PLASMA Comment: No hemolysis noted. Ordering Provider: SILVIA REDDY Report Released Date/Time: Aug 11, 2024 03:58 PM Reporting Lab: [facility] [address] Performing Lab: [facility] [address] MAGNESIUM 1.9 mg/dL 1.6-2.6 Aug 14, 2024 06:59 AM [facility] B12 Specimen Type: SERUM No comment entered. Ordering Provider: SILVIA REDDY Report Released Date/Time: Aug 11, 2024 03:58 PM Reporting Lab: [facility] [address] Performing Lab: [facility] [address] B12 757 pg/mL 213-816 Aug 14, 2024 06:59 AM [facility] FOLATE (STL-MA) Specimen Type: SERUM No comment entered. Ordering Provider: SILVIA REDDY Report Released Date/Time: Aug 11, 2024 03:58 PM Reporting Lab: [facility] [address] Performing Lab: [facility] [address] FOLATE (STL-MA) 6.8 ng/mL L 7-20 Aug 14, 2024 06:59 AM [facility] VITAMIN D, 25-HYDROXY Specimen Type: SERUM No comment entered. Ordering Provider: SILVIA REDDY Report Released Date/Time: Aug 11, 2024 03:58 PM Reporting Lab: [facility] [address] Performing Lab: [facility] [address] VITAMIN D, 25-HYDROXY 8.9 ng/mL L 30-96 Aug 14, 2024 06:59 AM [facility] CBC Specimen Type: BLOOD No comment entered. Ordering Provider: SILVIA REDDY Report Released Date/Time: Aug 11, 2024 03:58 PM Reporting Lab: [facility] [address] Performing Lab: [facility] [address] WBC 4.1 10*3/uL 3.6-11.2 RBC 3.20 10*6/uL [...] 0.00-0.20 Aug 14, 2024 06:59 AM [facility] COMPREHENSIVE METABOLIC PANEL Specimen Type: PLASMA Comment: No hemolysis noted. Ordering Provider: SILVIA REDDY Report Released Date/Time: Aug 11, 2024 03:58 PM Reporting Lab: [facility] [address] Performing Lab: [facility] [address] CREATININE 0.75 mg/dL 0.70-1.30 UREA NITROGEN 13.6 [...] >60 Aug 14, 2024 05:08 AM [facility] GLUCOSE,BLOOD-poct (STL) Specimen Type: BLOOD Comment: Test Performed by: [id number] Meter #: [id number] Ordering Provider: SILVIA REDDY Report Released Date/Time: Aug 14, 2024 05:52 AM Reporting Lab: [facility] [address] Performing Lab: [facility] [address] GLUCOSE,BLOOD- poct (STL) 135 mg/dL H 72-99 Aug 13, 2024 04:27 PM [facility] GLUCOSE,BLOOD-poct (STL) Specimen Type: BLOOD Comment: Test Performed by: [id number] Meter #: [id number] Ordering Provider: SILVIA REDDY Report Released Date/Time: Aug 13, 2024 04:41 PM Reporting Lab: [facility] [address] Performing Lab: [facility] [address] GLUCOSE,BLOOD- poct (STL) 181 mg/dL H 72-Aug 13, 2024 11:33 AM [facility] GLUCOSE,BLOOD-poct (STL) Specimen Type: BLOOD Comment: Test Performed by: [id number] Meter #: [id number] Ordering Provider: SILVIA REDDY Report Released Date/Time: Aug 13, 2024 03:55 PM Reporting Lab: [facility] [facility] [address] Performing Lab: [facility] [place] [address] GLUCOSE,BLOOD- poct (STL) 140 mg/dL H -Aug 13, 2024 05:54 AM [facility] GLUCOSE,BLOOD-poct (STL) Specimen Type: BLOOD Comment: Test Performed by: [id number] Meter #: [id number] Ordering Provider: SILVIA REDDY Report Released Date/Time: Aug 13, 2024 06:20 AM Reporting Lab: [facility] [place] [phone] Performing Lab: [facility] [address] GLUCOSE,BLOOD- poct (STL) 112 mg/dL H -Aug 12, 2024 04:35 PM [facility] GLUCOSE,BLOOD-poct (STL) Specimen Type: BLOOD Comment: Test Performed by: [id number] Meter #: [id number] Ordering Provider: SILVIA REDDY Report Released Date/Time: Aug 12, 2024 04:47 PM Reporting Lab: [facility] [address] Performing Lab: [facility] [facility] [address] GLUCOSE,BLOOD- poct (STL) 128 mg/dL H 72-99 Aug 12, 2024 11:26 AM [facility] GLUCOSE,BLOOD-poct (STL) Specimen Type: BLOOD Comment: Test Performed by: [id number] Meter #: [id number] Ordering Provider: SILVIA REDDY Report Released Date/Time: Aug 12, 2024 11:45 AM Reporting Lab: [facility] [facility] [address] Performing Lab: [facility] [place] [phone] GLUCOSE,BLOOD- poct (STL) 188 mg/dL H -Aug 12, 2024 06:13 AM [facility] GLUCOSE,BLOOD-poct (STL) Specimen Type: BLOOD Comment: Test Performed by: [id number] Meter #: [id number] Ordering Provider: SILVIA REDDY Report Released Date/Time: Aug 12, 2024 06:25 AM Reporting Lab: [facility] [address] Performing Lab: [facility] [facility] [address] GLUCOSE,BLOOD- poct (STL) 116 mg/dL H 72-99 Aug 11, 2024 04:10 PM [facility] GLUCOSE,BLOOD-poct (STL) Specimen Type: BLOOD Comment: Test Performed by: [id number] Meter #: [id number] Ordering Provider: SILVIA REDDY Report Released Date/Time: Aug 11, 2024 04:27 PM Reporting Lab: [facility] [place] [address] Performing Lab: [facility] [place] [phone] GLUCOSE,BLOOD- poct (STL) 184 mg/dL H 72-99 Aug 11, 2024 01:44 PM [facility] MRSA SURVL NARES DNA Specimen Type: NARES [...] 11, 2024 02:03 PM Reporting Lab: [address] [address] Performing Lab: [address] [address] MRSA SURVL NARES DNA Negative Negative Social History: Smoking Status (Most current) and Tobacco Use (All prior to encounter date) This section includes the most current, and the historical, smoking and tobacco- related health factors from the ID facility where the Encounter took place. Current Smoking Status This section includes the most current smoking, or tobacco-related health factor, from the ID facility where the Encounter took place. Date/Time Current Smoking Status Comment Radhika goins Aug 11, 2016 10:34 AM QUIT TOBACCO >7 YEARS AGO [facility] Tobacco Use History This section includes a history of the smoking, or tobacco-related health factors, that were collected on or before the date of the Encounter. The data comes from the ID facility where the Encounter took place. Date/Time Smoking Status/Tobacco Use Comment Juan acmichael Sep 30, 2015 10:12 AM QUIT TOBACCO >7 YEARS AGO [facility] Oct 29, 2014 10:23 AM QUIT TOBACCO >7 YEARS AGO [facility] Dec 27, 2013 01:27 PM QUIT TOBACCO >7 YEARS AGO [facility] Feb 24, 2013 02:01 PM LIFETIME NON-USER OF TOBACCO [facility] Feb 11, 2009 10:09 AM QUIT TOBACCO >7 YEARS AGO [facility] Oct 06, 2006 09:30 AM CURRENT NON-TOBACC O USER-HX OF USE [facility] Oct 06, 2006 09:30 AM TOBACCO TERMINATION STAGE [facility] Advance Directives: All historical and [...] 19, 2017 ADVANCE DIRECTIVE DISCUSSION ERICK BARDALES [facility] Encounter Notes: All associated encounter notes This section contains the clinical notes associated to the Encounter. 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 Judit Perkins/JUSTYN Reddy Lyons is being discharged today 08/23/24 from Recreation Therapy services after completeing his inpatient rehab. During his admission participated in structured group activities which include adapted bowling and Animal-Assisted Activities.Lyons was able to self direct his free time during his stay AEB watching tv in his room. independent in w/c mobility for short distances. RECREATION THERAPY TREATMENT PLAN The short-term and long-term goals checked are also identified on the multidisciplinary Care Plan. THERAPEUTIC PATH HAS BEEN IDENTIFIED FOR TREATMENT OF IDENTIFIED BARRIERS SHORT-TERM GOALS/OBJECTIVES: IMPROVE INVOLVEMENT IN LEISURE OPPORTUNITIES THAT PROMOTE IMPROVED PHYSICAL CONDITION. Resident will participate in 2 exercise related activities weekly and identify plans for involvement in those activities post discharge. billiards cornhole curling boccia Timeframe: 14 days Goal not met LONG-TERM GOALS/OBJECTIVES: DEVELOP PLANS FOR AN APPROPRIATE LEISURE LIFESTYLE. Resident will develop a leisure discharge plan that will include identified people, places, and activities, based on the following identified interests: Timeframe: 30 days Goal met Treatment Plan: Discontinue /es/ GAL HARTMAN, CAROLYNN Recreation Therapist, E[facility] Signed: 08/23/2024 15:39 GAL FINNEGAN [facility]
--- OUTSIDE RECORDS SUMMARY | 2024-11-17 04:11 | XMS_ITS ---
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 Date/Time Encounter Type Encounter Description Reason Pro vider Source Aug 23, 2024 11:37 AM Inpatient Visit DAILY HOSPITALIZATION DATA VICTORINA [...] AM AMBULATORY - MEDICINE [facility] Aug 24, 2024 10:30 AM AMBULATORY - MEDICINE [facility] Aug 30, 2024 09:30 AM AMBULATORY MEDICINE [facility] Aug 31, 2024 01:00 PM AMBULATORY - SUR[facility]ERY [facility] Sep 21, 2024 01:30 PM AMBULATORY - MEDICINE [facility] Sep 22, 2024 11:00 AM AMBULATORY - MEDICINE [facility] Sep 29, 2024 12:30 PM AMBULATORY - MEDICINE [facility] Oct 02, 2024 09:30 AM AMBULATORY - MEDICINE [facility] Nov 20, 2024 10:30 AM AMBULATORY - SURGERY [facility] Nov 21, 2024 10:00 AM AMBULATORY - NONE [facility] Dec 11, 2024 10:30 AM AMBULATORY - MEDICINE [facility] Active, Pending, and Scheduled Orders [...] - Chemistry Order CBC BLOOD STAT SP [facility] Aug 02, 2024 12:00 AM Laboratory - Chemistry Order COMPREHENSIVE METABOLIC PANEL GREEN LI/HEP BLD/PLAS PLASMA SP [facility] Aug 17, 2024 03:47 PM Consult Order [facility] Cons Bedside [facility] Lab Results: +/- 30 days [...] Comment Aug 23, 2024 08:21 AM [facility] MAGNESIUM Specimen Type: PLASMA No comment entered. Ordering Provider: SILVIA REDDY Report Released Date/Time: Aug 22, 2024 11:26 AM Reporting Lab: [facility] [address] Performing Lab: [facility] [address] MAGNESIUM 1.8 mg/dL 1.6-2.6 Aug 23, 2024 08:21 AM [facility] CBC Specimen Type: BLOOD No comment entered. Ordering Provider: SILVIA REDDY Report Released Date/Time: Aug 22, 2024 11:19 AM Reporting Lab: [facility] [address] Performing Lab: [facility] [address] WBC 4.0 10*3/uL 3.6-11.2 RBC 3.65 10*6/uL [...] 0.00-0.20 Aug 23, 2024 05:12 AM [facility] GLUCOSE,BLOOD-poct (STL) Specimen Type: BLOOD Comment: Test Performed by: [id number] Meter #: [id number] Ordering Provider: SILVIA REDDY Report Released Date/Time: Aug 23, 2024 05:23 AM Reporting Lab: [facility] [address] Performing Lab: [facility] [address] GLUCOSE,BLOOD- poct (STL) 99 mg/dL 72-99 Aug 23, 2024 02:45 AM [facility] OCCULT BLOOD FIT X1 SCREEN Specimen Type: FECES No comment entered. Ordering Provider: SILVIA REDDY Report Released Date/Time: Aug 22, 2024 11:23 AM Reporting Lab: [address] [address] Performing Lab: [facility] [address] [place] [address] OCCULT BLOOD (FIT) #1 OF 1 Negative Negative Aug 22, 2024 07:30 PM [facility] OCCULT BLOOD FIT X1 SCREEN Specimen Type: FECES No comment entered. Ordering Provider: SILVIA REDDY Report Released Date/Time: Aug 22, 2024 11:23 AM Reporting Lab: [facility] [address] [place] [address] Performing Lab: [address] [address] OCCULT BLOOD (FIT) #1 OF 1 Negative Negative Aug 22, 2024 06:15 PM [facility] OCCULT BLOOD FIT X1 SCREEN Specimen Type: FECES No comment entered. Ordering Provider: SILVIA REDDY Report Released Date/Time: Aug 22, 2024 11:23 AM Reporting Lab: [address] [address] Performing Lab: [place] [address] [address] [facility] [address] [facility] [address] OCCULT BLOOD (FIT) #1 OF 1 Negative Negative Aug 22, 2024 04:24 PM [facility] GLUCOSE,BLOOD-poct (STL) Specimen Type: BLOOD Comment: Test Performed by: [id number] Meter #: [id number] Ordering Provider: SILVIA REDDY Report Released Date/Time: Aug 22, 2024 04:36 PM Reporting Lab: [facility] [address] Performing Lab: [facility] [address] GLUCOSE,BLOOD- poct (STL) 176 mg/dL H -Aug 22, 2024 04:23 PM [facility] GLUCOSE,BLOOD-poct (STL) Specimen Type: BLOOD Comment: Test Performed by: [id number] Meter #: [id number] Ordering Provider: SILVIA REDDY Report Released Date/Time: Aug 22, 2024 04:36 PM Reporting Lab: [facility] [address] Performing Lab: [facility] [address] GLUCOSE,BLOOD- poct (STL) 221 mg/dL H -Aug 22, 2024 11:15 AM [facility] GLUCOSE,BLOOD-poct (STL) Specimen Type: BLOOD Comment: Test Performed by: [id number] Meter #: [id number] Ordering Provider: SILVIA REDDY Report Released Date/Time: Aug 22, 2024 11:27 AM Reporting Lab: [facility] [address] Performing Lab: [facility] [address] GLUCOSE,BLOOD- poct (STL) 140 mg/dL H 72-Aug 22, 2024 08:[address] [facility] FERRITIN Specimen Type: SERUM No comment entered. Ordering Provider: JUDIT PERKINS Report Released Date/Time: Aug 18, 2024 11:01 AM Reporting Lab: [facility] [address] [facility] [address] Performing Lab: [facility] [address] [facility] [address] FERRITIN 79.50 ng/mL 22-275 Aug 22, 2024 08:03 AM [facility] IRON/TIBC PROFILE Specimen Type: SERUM No comment entered. Ordering Provider: JUDIT PERKINS Report Released Date/Time: Aug 18, 2024 11:01 AM Reporting Lab: [address] [address] Performing Lab: [address] [address] TIBC 283 ug/dL 250-450 TRANSFERRIN 226 mg/dL 163-344 IRON SATURATION 7 L 20-50 IRON 19 ug/dL L 65-175 Aug 22, 2024 08:03 AM [facility] B12 Specimen Type: SERUM No comment entered. Ordering Provider: JUDIT PERKINS Report Released Date/Time: Aug 18, 2024 11:01 AM Reporting Lab: [facility] [address] Performing Lab: [facility] [address] B12 631 pg/mL 213-816 Aug 22, 2024 08:03 AM [facility] COMPREHENSIVE METABOLIC PANEL Specimen Type: PLASMA Comment: No hemolysis noted. Ordering Provider: SILVIA REDDY Report Released Date/Time: Aug 17, 2024 01:18 PM Reporting Lab: [facility] [address] [facility] [address] Performing Lab: [address] [address] CREATININE 0.80 mg/dL 0.7-1.3 UREA NITROGEN 9.7 [...] 94.0 >60 Aug 22, 2024 08:03 AM [facility] CBC Specimen Type: BLOOD No comment entered. Ordering Provider: SILVIA REDDY Report Released Date/Time: Aug 17, 2024 01:18 PM Reporting Lab: [facility] [address] Performing Lab: [facility] [address] WBC 3.5 10*3/uL L 3.6-11.2 RBC 3.23 [...] 0 Aug 22, 2024 05:03 AM [facility] GLUCOSE,BLOOD-poct (STL) Specimen Type: BLOOD Comment: Test Performed by: [id number] Meter #: [id number] Ordering Provider: SILVIA REDDY Report Released Date/Time: Aug 22, 2024 06:17 AM Reporting Lab: [facility] [address] Performing Lab[facility] [address] GLUCOSE,BLOOD- poct (STL) 170 mg/dL H 72-Aug 21, 2024 04:32 PM [facility] GLUCOSE,BLOOD-poct (STL) Specimen Type: BLOOD Comment: Test Performed by: [id number] Meter #: [id number] Ordering Provider: SILVIA REDDY Report Released Date/Time: Aug 21, 2024 04:49 PM Reporting Lab: [facility] [address] Performing Lab: [facility] [address] GLUCOSE,BLOOD- poct (STL) 169 mg/dL H -Aug 21, 2024 11:53 AM [facility] GLUCOSE,BLOOD-poct (STL) Specimen Type: BLOOD Comment: Test Performed by: [id number] Meter #: [id number] Ordering Provider: SILVIA REDDY Report Released Date/Time: Aug 21, 2024 12:11 PM Reporting Lab: [facility] [address] Performing Lab: [facility] [address] GLUCOSE,BLOOD- poct (STL) 149 mg/dL H 72-99 Aug 21, 2024 05:10 AM [facility] GLUCOSE,BLOOD-poct (STL) Specimen Type: BLOOD Comment: Test Performed by: [id number] Meter #: [id number] Ordering Provider: SILVIA REDDY Report Released Date/Time: Aug 21, 2024 05:27 AM Reporting Lab: [facility] [place] [address] Performing Lab: [facility] [address] GLUCOSE,BLOOD- poct (STL) 118 mg/dL H 72-Aug 20, 2024 04:38 PM [facility] GLUCOSE,BLOOD-poct (STL) Specimen Type: BLOOD Comment: Test Performed by: [id number] Meter #: [id number] Ordering Provider: SILVIA REDDY Report Released Date/Time: Aug 21, 2024 01:55 AM Reporting Lab: [facility] [place] [address] Performing Lab: [facility] [place] [address] GLUCOSE,BLOOD- poct (STL) 169 mg/dL H -Aug 20, 2024 04:36 PM [facility] GLUCOSE,BLOOD-poct (STL) Specimen Type: BLOOD Comment: Test Performed by: [id number] Meter #: [id number] Ordering Provider: SILVIA REDDY Report Released Date/Time: Aug 21, 2024 01:55 AM Reporting Lab: [facility] [place] [address] Performing Lab: [facility] [place] [address] GLUCOSE,BLOOD- poct (STL) 395 mg/dL H 72-Aug 20, 2024 11:45 AM [facility] GLUCOSE,BLOOD-poct (STL) Specimen Type: BLOOD Comment: Test Performed by: [id number] Meter #: [id number] Ordering Provider: SILVIA REDDY Report Released Date/Time: Aug 20, 2024 11:56 AM Reporting Lab: [facility] Performing Lab: [facility] [address] GLUCOSE,BLOOD- poct (STL) 169 mg/dL H -Aug 20, 2024 05:06 AM [facility] GLUCOSE,BLOOD-poct (STL) Specimen Type: BLOOD Comment: Test Performed by: [id number] Meter #: [id number] Ordering Provider: SILVIA REDDY Report Released Date/Time: Aug 20, 2024 06:05 AM Reporting Lab: [facility] [address] Performing Lab: [facility] [address] GLUCOSE,BLOOD- poct (STL) 115 mg/dL H -Aug 19, 2024 04:23 PM [facility] GLUCOSE,BLOOD-poct (STL) Specimen Type: BLOOD Comment: Test Performed by: [id number] Meter #: [id number] Ordering Provider: SILVIA REDDY Report Released Date/Time: Aug 19, 2024 05:54 PM Reporting Lab: [facility] [address] Performing Lab: [facility] [address] GLUCOSE,BLOOD- poct (STL) 137 mg/dL H Aug 19, 2024 11:28 AM [facility] GLUCOSE,BLOOD-poct (STL) Specimen Type: BLOOD Comment: Test Performed by: [id number] Meter #: [id number] Ordering Provider: SILVIA REDDY Report Released Date/Time: Aug 19, 2024 11:51 AM Reporting Lab: [facility] [address] Performing Lab: [facility] [address] GLUCOSE,BLOOD- poct (STL) 190 mg/dL H Aug 19, 2024 05:21 AM [facility] GLUCOSE,BLOOD-poct (STL) Specimen Type: BLOOD Comment: Test Performed by: [id number] Meter #: [id number] Ordering Provider: SILVIA REDDY Report Released Date/Time: Aug 19, 2024 05:56 AM Reporting Lab: [facility] [address] Performing Lab: [facility] [address] GLUCOSE,BLOOD- poct (STL) 130 mg/dL H Aug 18, 2024 04:49 PM [facility] GLUCOSE,BLOOD-poct (STL) Specimen Type: BLOOD Comment: Test Performed by: [id number] Meter #: [id number] Ordering Provider: SILVIA REDDY Report Released Date/Time: Aug 18, 2024 05:01 PM Reporting Lab: [facility] [address] Performing Lab: [facility] [address] GLUCOSE,BLOOD- poct (STL) 129 mg/dL H Aug 18, 2024 11:23 AM [facility] GLUCOSE,BLOOD-poct (STL) Specimen Type: BLOOD Comment: Test Performed by: [id number] Meter #: [id number] Ordering Provider: SILVIA REDDY Report Released Date/Time: Aug 18, 2024 11:41 AM Reporting Lab: [facility] [address] Performing Lab: [facility] [address] GLUCOSE,BLOOD- poct (STL) 180 mg/dL H Aug 18, 2024 05:08 AM [facility] GLUCOSE,BLOOD-poct (STL) Specimen Type: BLOOD Comment: Test Performed by: [id number] Meter #: [id number] Ordering Provider: SILVIA REDDY Report Released Date/Time: Aug 18, 2024 05:31 AM Reporting Lab: [facility] [address] Performing Lab: [facility] [address] GLUCOSE,BLOOD- poct (STL) 127 mg/dL H -Aug 17, 2024 07:32 PM [facility] GLUCOSE,BLOOD-poct (STL) Specimen Type: BLOOD Comment: Test Performed by: [id number] Meter #: [id number] Ordering Provider: SILVIA REDDY Report Released Date/Time: Aug 17, 2024 07:59 PM Reporting Lab: [facility] [address] Performing Lab: [facility] [place] [address] GLUCOSE,BLOOD- poct (STL) 154 mg/dL H -Aug 17, 2024 04:24 PM [facility] GLUCOSE,BLOOD-poct (STL) Specimen Type: BLOOD Comment: Test Performed by: [id number] Meter #: [id number] Ordering Provider: SILVIA REDDY Report Released Date/Time: Aug 17, 2024 04:35 PM Reporting Lab: [facility] [address] Performing Lab: [facility] [address] GLUCOSE,BLOOD- poct (STL) 178 mg/dL H -Aug 17, 2024 05:09 AM [facility] GLUCOSE,BLOOD-poct (STL) Specimen Type: BLOOD Comment: Test Performed by: [id number] Meter #: [id number] Ordering Provider: SILVIA REDDY Report Released Date/Time: Aug 17, 2024 05:54 AM Reporting Lab: [facility] Performing Lab: [facility] [address] GLUCOSE,BLOOD- poct (STL) 124 mg/dL H -Aug 16, 2024 07:40 PM [facility] GLUCOSE,BLOOD-poct (STL) Specimen Type: BLOOD Comment: Test Performed by: [id number] Meter #: [id number] Ordering Provider: SILVIA REDDY Report Released Date/Time: Aug 16, 2024 08:28 PM Reporting Lab: [facility] [address] Performing Lab: [facility] [address] GLUCOSE,BLOOD- poct (STL) 144 mg/dL H Aug 16, 2024 04:19 PM [facility] GLUCOSE,BLOOD-poct (STL) Specimen Type: BLOOD Comment: Test Performed by: [id number] Meter #: [id number] Ordering Provider: SILVIA REDDY Report Released Date/Time: Aug 16, 2024 04:45 PM Reporting Lab: [facility] [address] Performing Lab: [facility] [address] GLUCOSE,BLOOD- poct (STL) 138 mg/dL H Aug 16, 2024 11:52 AM [facility] GLUCOSE,BLOOD-poct (STL) Specimen Type: BLOOD Comment: Test Performed by: [id number] Meter #: [id number] Ordering Provider: SILVIA REDDY Report Released Date/Time: Aug 16, 2024 12:04 PM Reporting Lab: [facility] [address] Performing Lab: [facility] [address] GLUCOSE,BLOOD- poct (STL) 135 mg/dL H Aug 16, 2024 05:24 AM [facility] GLUCOSE,BLOOD-poct (STL) Specimen Type: BLOOD Comment: Test Performed by: [id number] Meter #: [id number] Ordering Provider: SILVIA REDDY Report Released Date/Time: Aug 16, 2024 05:38 AM Reporting Lab: [facility] [address] Performing Lab: [facility] [address] GLUCOSE,BLOOD- poct (STL) 151 mg/dL H Aug 15, 2024 07:31 PM [facility] GLUCOSE,BLOOD-poct (STL) Specimen Type: BLOOD Comment: Test Performed by: [id number] Meter #: [id number] Ordering Provider: SILVIA REDDY Report Released Date/Time: Aug 15, 2024 08:07 PM Reporting Lab: [facility] [address] Performing Lab: [facility] [address] GLUCOSE,BLOOD- poct (STL) 173 mg/dL H Aug 15, 2024 04:18 PM [facility] GLUCOSE,BLOOD-poct (STL) Specimen Type: BLOOD Comment: Test Performed by: [id number] Meter #: [id number] Ordering Provider: SILVIA REDDY Report Released Date/Time: Aug 15, 2024 04:59 PM Reporting Lab: [facility] [address] Performing Lab: [facility] [address] GLUCOSE,BLOOD- poct (STL) 136 mg/dL H Aug 15, 2024 04:16 PM [facility] GLUCOSE,BLOOD-poct (STL) Specimen Type: BLOOD Comment: Test Performed by: [id number] Meter #: [id number] Ordering Provider: SILVIA REDDY Report Released Date/Time: Aug 15, 2024 04:59 PM Reporting Lab: [facility] [address] Performing Lab: [facility] [address] GLUCOSE,BLOOD- poct (STL) 194 mg/dL H -Aug 15, 2024 11:39 AM [facility] GLUCOSE,BLOOD-poct (STL) Specimen Type: BLOOD Comment: Test Performed by: [id number] Meter #: [id number] Ordering Provider: SILVIA REDDY Report Released Date/Time: Aug 15, 2024 12:00 PM Reporting Lab: [facility] [address] Performing Lab: [facility] [place] [address] GLUCOSE,BLOOD- poct (STL) 127 mg/dL H -Aug 15, 2024 05:07 AM [facility] GLUCOSE,BLOOD-poct (STL) Specimen Type: BLOOD Comment: Test Performed by: [id number] Meter #: [id number] Ordering Provider: SILVIA REDDY Report Released Date/Time: Aug 15, 2024 06:14 AM Reporting Lab: [facility] [address] Performing Lab: [facility] [address] GLUCOSE,BLOOD- poct (STL) 151 mg/dL H -Aug 14, 2024 04:22 PM [facility] GLUCOSE,BLOOD-poct (STL) Specimen Type: BLOOD Comment: Test Performed by: [id number] Meter #: [id number] Ordering Provider: SILVIA REDDY Report Released Date/Time: Aug 14, 2024 04:52 PM Reporting Lab: [facility] Performing Lab: [facility] [address] GLUCOSE,BLOOD- poct (STL) 129 mg/dL H 72-99 Aug 14, 2024 11:21 AM [facility] GLUCOSE,BLOOD-poct (STL) Specimen Type: BLOOD Comment: Test Performed by: [id number] Meter #: [id number] Ordering Provider: SILVIA REDDY Report Released Date/Time: Aug 14, 2024 11:37 AM Reporting Lab: [facility] [address] Performing Lab: [facility] [address] GLUCOSE,BLOOD- poct (STL) 135 mg/dL H 72-99 Aug 14, 2024 06:59 AM [facility] QUANTIFERON-TB,4 TUBE Specimen Type: BLOOD Comment: [...] For additional information, please refer to [email or web address] [email or web address]/faq/JLU059 (This link is being provided for information/ educational purposes only.) Test Performed by Wapi Sander, [employer] [facility], [address] [place] [address] Tommie Garcia M.D., Ph.D., Director of Laboratories , [facility] [id number] Ordering Provider: SILVIA REDDY Report Released Date/Time: Aug 11, 2024 03:58 PM Reporting Lab: [facility] [address] [facility] [address] Performing Lab: [facility] [id number] [place] [address] .NIL - QUANTIFERON 0.04 [IU]/mL .MITOGEN-NIL 0.39 [IU]/mL .QUANTIFERON INDETERMINATE NEGATIVE .TB1-NIL <0.00 [IU]/mL .TB2-NIL <0.00 [IU]/mL Aug 14, 2024 06:59 AM [facility] MAGNESIUM Specimen Type: PLASMA Comment: No hemolysis noted. Ordering Provider: SILVIA REDDY Report Released Date/Time: Aug 11, 2024 03:58 PM Reporting Lab: [facility] [address] Performing Lab: [facility] [address] MAGNESIUM 1.9 mg/dL 1.6-2.6 Aug 14, 2024 06:59 AM [facility] B12 Specimen Type: SERUM No comment entered. Ordering Provider: SILVIA REDDY Report Released Date/Time: Aug 11, 2024 03:58 PM Reporting Lab: [facility] [address] Performing Lab: [facility] [address] B12 757 pg/mL 213-816 Aug 14, 2024 06:59 AM [facility] FOLATE (STL-MA) Specimen Type: SERUM No comment entered. Ordering Provider: SILVIA REDDY Report Released Date/Time: Aug 11, 2024 03:58 PM Reporting Lab: [facility] [address] Performing Lab: [facility] [address] FOLATE (STL-MA) 6.8 ng/mL L 7-20 Aug 14, 2024 06:59 AM [facility] VITAMIN D, 25-HYDROXY Specimen Type: SERUM No comment entered. Ordering Provider: SILVIA REDDY Report Released Date/Time: Aug 11, 2024 03:58 PM Reporting Lab: [facility] [address] Performing Lab: [facility] [address] VITAMIN D, 25-HYDROXY 8.9 ng/mL L 30-96 Aug 14, 2024 06:59 AM [facility] COMPREHENSIVE METABOLIC PANEL Specimen Type: PLASMA Comment: No hemolysis noted. Ordering Provider: SILVIA REDDY Report Released Date/Time: Aug 11, 2024 03:58 PM Reporting Lab: [facility] [address] Performing Lab: [facility] [address] CREATININE 0.75 mg/dL 0.70-1.30 UREA NITROGEN 13.6 [...] >60 Aug 14, 2024 06:59 AM [facility] CBC Specimen Type: BLOOD No comment entered. Ordering Provider: SILVIA REDDY Report Released Date/Time: Aug 11, 2024 03:58 PM Reporting Lab: [facility] [address] Performing Lab: [facility] [address] WBC 4.1 10*3/uL 3.6-11.2 RBC 3.20 10*6/uL [...] 0.00-0.20 Aug 14, 2024 05:08 AM [facility] GLUCOSE,BLOOD-poct (STL) Specimen Type: BLOOD Comment: Test Performed by: [id number] Meter #: [id number] Ordering Provider: SILVIA REDDY Report Released Date/Time: Aug 14, 2024 05:52 AM Reporting Lab: [facility] [address] Performing Lab: [facility] [address] GLUCOSE,BLOOD- poct (STL) 135 mg/dL H 72-99 Aug 13, 2024 04:27 PM [facility] GLUCOSE,BLOOD-poct (STL) Specimen Type: BLOOD Comment: Test Performed by: [id number] Meter #: [id number] Ordering Provider: SILVIA REDDY Report Released Date/Time: Aug 13, 2024 04:41 PM Reporting Lab: [facility] [address] Performing Lab[facility] [address] GLUCOSE,BLOOD- poct (STL) 181 mg/dL H -Aug 13, 2024 11:33 AM [facility] GLUCOSE,BLOOD-poct (STL) Specimen Type: BLOOD Comment: Test Performed by: [id number] Meter #: [id number] Ordering Provider: SILVIA REDDY Report Released Date/Time: Aug 13, 2024 03:55 PM Reporting Lab: [facility] [address] Performing Lab: [facility] [address] GLUCOSE,BLOOD- poct (STL) 140 mg/dL H -Aug 13, 2024 05:54 AM [facility] GLUCOSE,BLOOD-poct (STL) Specimen Type: BLOOD Comment: Test Performed by: [id number] Meter #: [id number] Ordering Provider: SILVIA REDDY Report Released Date/Time: Aug 13, 2024 06:20 AM Reporting Lab: [facility] [address] Performing Lab: [facility] [address] GLUCOSE,BLOOD- poct (STL) 112 mg/dL H -Aug 12, 2024 04:35 PM [facility] GLUCOSE,BLOOD-poct (STL) Specimen Type: BLOOD Comment: Test Performed by: [id number] Meter #: [id number] Ordering Provider: SILVIA REDDY Report Released Date/Time: Aug 12, 2024 04:47 PM Reporting Lab: [facility] [address] Performing Lab: [facility] [address] GLUCOSE,BLOOD- poct (STL) 128 mg/dL H 72-99 Aug 12, 2024 11:26 AM [facility] GLUCOSE,BLOOD-poct (STL) Specimen Type: BLOOD Comment: Test Performed by: [id number] Meter #: [id number] Ordering Provider: SILVIA REDDY Report Released Date/Time: Aug 12, 2024 11:45 AM Reporting Lab: [facility] [address] Performing Lab: [facility] [address] GLUCOSE,BLOOD- poct (STL) 188 mg/dL H 72-Aug 12, 2024 06:13 AM [facility] GLUCOSE,BLOOD-poct (STL) Specimen Type: BLOOD Comment: Test Performed by: [id number] Meter #: [id number] Ordering Provider: SILVIA REDDY Report Released Date/Time: Aug 12, 2024 06:25 AM Reporting Lab: [facility] [address] Performing Lab: [facility] [address] GLUCOSE,BLOOD- poct (STL) 116 mg/dL H 72-99 Aug 11, 2024 04:10 PM [facility] GLUCOSE,BLOOD-poct (STL) Specimen Type: BLOOD Comment: Test Performed by: [id number] Meter #: [id number] Ordering Provider: SILVIA REDDY Report Released Date/Time: Aug 11, 2024 04:27 PM Reporting Lab: [facility] [place] [id number] Performing Lab: [facility] [address] GLUCOSE,BLOOD- poct (STL) 184 mg/dL H 72-99 Aug 11, 2024 01:44 PM [facility] MRSA SURVL NARES DNA Specimen Type: [...] Aug 11, 2024 02:03 PM Reporting Lab: [address] [address] Performing Lab: [address] [address] MRSA SURVL NARES DNA Negative Negative Vital Signs: All taken on the encounter date This section contains inpatient and outpatient Vital Signs collected on the date of the Encounter. Date/Time Temperature Pulse Blood Pressure Respiratory Rate SP02 Pain Height Weight Body Mass Index Source Aug 23, 2024 09:39 AM 0 [facility] Aug 23, 2024 05:19 AM 71 124/[address] [facility] N Advance Directives: All historical and current [...] DIRECTIVE DISCUSSION ERICK B[facility]ALES [facility]
--- OUTSIDE RECORDS SUMMARY | 2024-11-17 04:11 | XMS_ITS ---
[place] DAILY HOSPITALIZATION DATA [facility] Encounter Summary Created on: November 16, 2024 CHET WALKER : 1950 Sex: Male Author Name [facility] [place] [facility] [place] Address [address] [place] [address] Care Team Providers Care Checking Clerk Name Role Phone MANUEL BAIRD Primary [...] PART A Apr 08, 2017 PART A [id number] ASHLEY WALKER PATIENT Selected Encounter This section includes the information on record at [place] for the Encounter. Date/Time Encounter Type Encounter Description Reason Pro vider Source Aug 23, 2024 09:39 AM Inpatient Visit DAILY HOSPITALIZATION DATA [facility] [...] 2024 09:30 AM AMBULATORY MEDICINE [facility] Aug 31, 2024 01:00 PM AMBULATORY - SURGERY [facility] Sep 21, 2024 01:30 PM AMBULATORY - MEDICINE [facility] Sep 22, 2024 11:00 AM AMBULATORY - MEDICINE [facility] Sep 29, 2024 12:30 PM AMBULATORY - MEDICINE [facility] Oct 02, 2024 09:30 AM AMBULATORY - MEDICINE [facility] Nov 20, 2024 10:30 AM AMBULATORY - SURGERY [facility] Nov 21, 2024 10:00 AM AMBULATORY - NONE [facility] Dec 11, 2024 10:30 AM AMBULATORY - MEDICINE [facility] Active, Pending, and Scheduled Orders This section includes a listing of several types of active, pending, and scheduled orders, including clinic medications orders, diagnostic test orders, procedure orders and consult orders; where the start date of the order is 45 days before the date of the Encounter or 45 days after the date of theEncounter. The data comes from all [facility]. Test Date/Time Test Type Test Details Facility Name Aug 02, 2024 12:00 AM Laboratory - Chemistry Order COMPREHENSIVE METABOLIC PANEL GREEN LI/HEP BLD/PLAS PLASMA SP [facility] Aug 02, 2024 12:00 AM Laboratory - Chemistry Order CBC BLOOD STAT SP [facility] Aug 17, 2024 03:47 PM Consult Order [facility] Cons Bedside [facility] Lab Results: +/- 30 days of [...] [facility] [address] Performing Lab: [facility] [address] MAGNESIUM 1.8 mg/dL 1.6-2.6 Aug 23, 2024 08:21 AM [facility] CBC Specimen Type: BLOOD No comment entered. Ordering Provider: SILVIA REDDY Report Released Date/Time: Aug 22, 2024 11:19 AM Reporting Lab: [facility] [address] Performing Lab: [facility] [address] WBC 4.0 10*3/uL 3.6-11.2 RBC 3.65 10*6/uL [...] Specimen Type: BLOOD Comment: Test Performed by: [id number] Meter #: [id number] Ordering Provider: SILVIA REDDY Report Released Date/Time: Aug 23, 2024 05:23 AM Reporting Lab: [facility] [address] Performing Lab: [facility] #1 [facility] [address] GLUCOSE,BLOOD- poct (STL) 99 mg/dL 72-99 Aug 23, 2024 02:45 AM [facility] OCCULT BLOOD FIT X1 SCREEN Specimen Type: FECES No comment entered. Ordering Provider: SILVIA REDDY Report Released Date/Time: Aug 22, 2024 11:23 AM Reporting Lab: [address] [address] Performing Lab: [facility] [address] [place] [address] OCCULT BLOOD (FIT) #1 OF 1 Negative Negative Aug 22, 2024 07:30 PM [facility] OCCULT BLOOD FIT X1 SCREEN Specimen Type: FECES No comment entered. Ordering Provider: SILVIA REDDY Report Released Date/Time: Aug 22, 2024 11:23 AM Reporting Lab: [facility] [address] [place] [address] Performing Lab: [address] [address] OCCULT BLOOD (FIT) #1 OF 1 Negative Negative Aug 22, 2024 06:15 PM [facility] OCCULT BLOOD FIT X1 SCREEN Specimen Type: FECES No comment entered. Ordering Provider: SILVIA REDDY Report Released Date/Time: Aug 22, 2024 11:23 AM Reporting Lab: [address] [address] Performing Lab: [place] [address] [address] [facility] [address] OCCULT BLOOD (FIT) #1 OF 1 Negative Negative Aug 22, 2024 04:24 PM [facility] GLUCOSE,BLOOD-poct (STL) Specimen Type: BLOOD Comment: Test Performed by: [id number] Meter #: [id number] Ordering Provider: SILVIA REDDY Report Released Date/Time: Aug 22, 2024 04:36 PM Reporting Lab: [facility] [address] Performing Lab: [facility] #1 [facility] [address] GLUCOSE,BLOOD- poct (STL) 176 mg/dL H -Aug 22, 2024 04:23 PM [facility] GLUCOSE,BLOOD-poct (STL) Specimen Type: BLOOD Comment: Test Performed by: [id number] Meter #: [id number] Ordering Provider: SILVIA REDDY Report Released Date/Time: Aug 22, 2024 04:36 PM Reporting Lab: [facility] [address] Performing Lab: [facility] [address] GLUCOSE,BLOOD- poct (STL) 221 mg/dL H -Aug 22, 2024 11:15 AM [facility] GLUCOSE,BLOOD-poct (STL) Specimen Type: BLOOD Comment: Test Performed by: [id number] Meter #: [id number] Ordering Provider: SILVIA REDDY Report Released Date/Time: Aug 22, 2024 11:27 AM Reporting Lab: [facility] [address] Performing Lab: [facility] #1 [facility] [address] GLUCOSE,BLOOD- poct (STL) 140 mg/dL H 72-Aug 22, 2024 08:[address] [facility] FERRITIN Specimen Type: SERUM No comment entered. Ordering Provider: JUDIT PERKINS Report Released Date/Time: Aug 18, 2024 11:01 AM Reporting Lab: [facility] [address] [address] Performing Lab: [facility] [address] [address] FERRITIN 79.50 ng/mL 22-275 Aug 22, 2024 08:03 AM [facility] IRON/TIBC PROFILE Specimen Type: SERUM No comment entered. Ordering Provider: JUDIT PERKINS Report Released Date/Time: Aug 18, 2024 11:01 AM Reporting Lab: [address] [address] Performing Lab: [address] [address] TIBC 283 ug/dL 250-450 TRANSFERRIN 226 mg/dL 163-344 IRON SATURATION 7 L 20-50 IRON 19 ug/dL L 65-175 Aug 22, 2024 08:03 AM [facility] B12 Specimen Type: SERUM No comment entered. Ordering Provider: JUDIT PERKINS Report Released Date/Time: Aug 18, 2024 11:01 AM Reporting Lab: [facility] [address] Performing Lab: [facility] [address] B12 631 pg/mL 213-816 Aug 22, 2024 08:03 AM [facility] COMPREHENSIVE METABOLIC PANEL Specimen Type: PLASMA Comment: No hemolysis noted. Ordering Provider: SILVIA REDDY Report Released Date/Time: Aug 17, 2024 01:18 PM Reporting Lab: [facility] [address] [address] Performing Lab: [address] [address] CREATININE 0.80 mg/dL 0.7-1.3 UREA NITROGEN 9.7 [...] [facility] [address] Performing Lab: [facility] [address] WBC 3.5 10*3/uL L 3.6-11.2 RBC 3.23 [...] Specimen Type: BLOOD Comment: Test Performed by: [id number] Meter #: [id number] Ordering Provider: SILVIA REDDY Report Released Date/Time: Aug 22, 2024 06:17 AM Reporting Lab: [facility] #1 [facility] [address] Performing Lab: [facility] [address] GLUCOSE,BLOOD- poct (STL) 170 mg/dL H 72-Aug 21, 2024 04:32 PM [facility] GLUCOSE,BLOOD-poct (STL) Specimen Type: BLOOD Comment: Test Performed by: [id number] Meter #: [id number] Ordering Provider: SILVIA REDDY Report Released Date/Time: Aug 21, 2024 04:49 PM Reporting Lab: [facility] [address] Performing Lab: [facility] [address] GLUCOSE,BLOOD- poct (STL) 169 mg/dL H -Aug 21, 2024 11:53 AM [facility] GLUCOSE,BLOOD-poct (STL) Specimen Type: BLOOD Comment: Test Performed by: [id number] Meter #: [id number] Ordering Provider: SILVIA REDDY Report Released Date/Time: Aug 21, 2024 12:11 PM Reporting Lab: [facility] #[facility] [address] Performing Lab: [facility] [address] GLUCOSE,BLOOD- poct (STL) 149 mg/dL H 72-99 Aug 21, 2024 05:10 AM [facility] GLUCOSE,BLOOD-poct (STL) Specimen Type: BLOOD Comment: Test Performed by: [id number] Meter #: [id number] Ordering Provider: SILVIA REDDY Report Released Date/Time: Aug 21, 2024 05:27 AM Reporting Lab: [facility] #1 [place] [address] Performing Lab: [facility] [address] GLUCOSE,BLOOD- poct (STL) 118 mg/dL H 72-Aug 20, 2024 04:38 PM [facility] GLUCOSE,BLOOD-poct (STL) Specimen Type: BLOOD Comment: Test Performed by: [id number] Meter #: [id number] Ordering Provider: SILVIA REDDY Report Released Date/Time: Aug 21, 2024 01:55 AM Reporting Lab: [facility] #[address] [place] [address] Performing Lab: [facility] [place] [address] GLUCOSE,BLOOD- poct (STL) 169 mg/dL H -Aug 20, 2024 04:36 PM [facility] GLUCOSE,BLOOD-poct (STL) Specimen Type: BLOOD Comment: Test Performed by: [id number] Meter #: [id number] Ordering Provider: SILVIA REDDY Report Released Date/Time: Aug 21, 2024 01:55 AM Reporting Lab: [facility] [place] [address] Performing Lab: [facility] [place] [address] GLUCOSE,BLOOD- poct (STL) 395 mg/dL H 72-Aug 20, 2024 11:45 AM [facility] GLUCOSE,BLOOD-poct (STL) Specimen Type: BLOOD Comment: Test Performed by: [id number] Meter #: [id number] Ordering Provider: SILVIA REDDY Report Released Date/Time: Aug 20, 2024 11:56 AM Reporting Lab: [facility] #[address] Performing Lab: [facility] [address] GLUCOSE,BLOOD- poct (STL) 169 mg/dL H -Aug 20, 2024 05:06 AM [facility] GLUCOSE,BLOOD-poct (STL) Specimen Type: BLOOD Comment: Test Performed by: [id number] Meter #: [id number] Ordering Provider: SILVIA REDDY Report Released Date/Time: Aug 20, 2024 06:05 AM Reporting Lab: [facility] [address] Performing Lab: [facility] [address] GLUCOSE,BLOOD- poct (STL) 115 mg/dL H -Aug 19, 2024 04:23 PM [facility] GLUCOSE,BLOOD-poct (STL) Specimen Type: BLOOD Comment: Test Performed by: [id number] Meter #: [id number] Ordering Provider: SILVIA REDDY Report Released Date/Time: Aug 19, 2024 05:54 PM Reporting Lab: [facility] [address] Performing Lab: [facility] [address] GLUCOSE,BLOOD- poct (STL) 137 mg/dL H Aug 19, 2024 11:28 AM [facility] GLUCOSE,BLOOD-poct (STL) Specimen Type: BLOOD Comment: Test Performed by: [id number] Meter #: [id number] Ordering Provider: SILVIA REDDY Report Released Date/Time: Aug 19, 2024 11:51 AM Reporting Lab: [facility] [address] Performing Lab: [facility] [address] GLUCOSE,BLOOD- poct (STL) 190 mg/dL H Aug 19, 2024 05:21 AM [facility] GLUCOSE,BLOOD-poct (STL) Specimen Type: BLOOD Comment: Test Performed by: [id number] Meter #: [id number] Ordering Provider: SILVIA REDDY Report Released Date/Time: Aug 19, 2024 05:56 AM Reporting Lab: [facility]1 [facility] [address] Performing Lab: [facility] #[facility] [address] GLUCOSE,BLOOD- poct (STL) 130 mg/dL H Aug 18, 2024 04:49 PM [facility] GLUCOSE,BLOOD-poct (STL) Specimen Type: BLOOD Comment: Test Performed by: [id number] Meter #: [id number] Ordering Provider: SILVIA RDEDY Report Released Date/Time: Aug 18, 2024 05:01 PM Reporting Lab: [facility] [address] Performing Lab: [facility] #1 [facility] [address] GLUCOSE,BLOOD- poct (STL) 129 mg/dL H Aug 18, 2024 11:23 AM [facility] GLUCOSE,BLOOD-poct (STL) Specimen Type: BLOOD Comment: Test Performed by: [id number] Meter #: [id number] Ordering Provider: SILVIA REDDY Report Released Date/Time: Aug 18, 2024 11:41 AM Reporting Lab: [facility] [address] Performing Lab: [facility] #[facility] [address] GLUCOSE,BLOOD- poct (STL) 180 mg/dL H Aug 18, 2024 05:08 AM [facility] GLUCOSE,BLOOD-poct (STL) Specimen Type: BLOOD Comment: Test Performed by: [id number] Meter #: [id number] Ordering Provider: SILVIA REDDY Report Released Date/Time: Aug 18, 2024 05:31 AM Reporting Lab: [facility] [address] Performing Lab: [facility] #1 [facility] [address] GLUCOSE,BLOOD- poct (STL) 127 mg/dL H -Aug 17, 2024 07:32 PM [facility] GLUCOSE,BLOOD-poct (STL) Specimen Type: BLOOD Comment: Test Performed by: [id number] Meter #: [id number] Ordering Provider: SILVIA REDDY Report Released Date/Time: Aug 17, 2024 07:59 PM Reporting Lab: [facility] [address] Performing Lab: [facility] #1 [place] [address] GLUCOSE,BLOOD- poct (STL) 154 mg/dL H -Aug 17, 2024 04:24 PM [facility] GLUCOSE,BLOOD-poct (STL) Specimen Type: BLOOD Comment: Test Performed by: [id number] Meter #: [id number] Ordering Provider: SILVIA REDDY Report Released Date/Time: Aug 17, 2024 04:35 PM Reporting Lab: [facility] [address] Performing Lab: [facility] [address] GLUCOSE,BLOOD- poct (STL) 178 mg/dL H -Aug 17, 2024 05:09 AM [facility] GLUCOSE,BLOOD-poct (STL) Specimen Type: BLOOD Comment: Test Performed by: [id number] Meter #: [id number] Ordering Provider: SILVIA REDDY Report Released Date/Time: Aug 17, 2024 05:54 AM Reporting Lab: [facility] Performing Lab: [facility] [address] GLUCOSE,BLOOD- poct (STL) 124 mg/dL H -Aug 16, 2024 07:40 PM [facility] GLUCOSE,BLOOD-poct (STL) Specimen Type: BLOOD Comment: Test Performed by: [id number] Meter #: [id number] Ordering Provider: SILVIA REDDY Report Released Date/Time: Aug 16, 2024 08:28 PM Reporting Lab: [facility] [address] Performing Lab: [facility] [address] GLUCOSE,BLOOD- poct (STL) 144 mg/dL H Aug 16, 2024 04:19 PM [facility] GLUCOSE,BLOOD-poct (STL) Specimen Type: BLOOD Comment: Test Performed by: [id number] Meter #: [id number] Ordering Provider: SILVIA REDDY Report Released Date/Time: Aug 16, 2024 04:45 PM Reporting Lab: [facility] [address] Performing Lab: [facility] [address] GLUCOSE,BLOOD- poct (STL) 138 mg/dL H Aug 16, 2024 11:52 AM [facility] GLUCOSE,BLOOD-poct (STL) Specimen Type: BLOOD Comment: Test Performed by: [id number] Meter #: [id number] Ordering Provider: SILVIA REDDY Report Released Date/Time: Aug 16, 2024 12:04 PM Reporting Lab: [facility] [address] Performing Lab: [facility] [address] GLUCOSE,BLOOD- poct (STL) 135 mg/dL H Aug 16, 2024 05:24 AM [facility] GLUCOSE,BLOOD-poct (STL) Specimen Type: BLOOD Comment: Test Performed by: [id number] Meter #: [id number] Ordering Provider: SILVIA REDDY Report Released Date/Time: Aug 16, 2024 05:38 AM Reporting Lab: [facility] [address] Performing Lab: [facility] [address] GLUCOSE,BLOOD- poct (STL) 151 mg/dL H Aug 15, 2024 07:31 PM [facility] GLUCOSE,BLOOD-poct (STL) Specimen Type: BLOOD Comment: Test Performed by: [id number] Meter #: [id number] Ordering Provider: SILVIA REDDY Report Released Date/Time: Aug 15, 2024 08:07 PM Reporting Lab: [facility] [address] Performing Lab: [facility] [address] GLUCOSE,BLOOD- poct (STL) 173 mg/dL H Aug 15, 2024 04:18 PM [facility] GLUCOSE,BLOOD-poct (STL) Specimen Type: BLOOD Comment: Test Performed by: [id number] Meter #: [id number] Ordering Provider: SILVIA REDDY Report Released Date/Time: Aug 15, 2024 04:59 PM Reporting Lab: [facility] [address] Performing Lab: [facility] [address] GLUCOSE,BLOOD- poct (STL) 136 mg/dL H Aug 15, 2024 04:16 PM [facility] GLUCOSE,BLOOD-poct (STL) Specimen Type: BLOOD Comment: Test Performed by: [id number] Meter #: [id number] Ordering Provider: SILVIA REDDY Report Released Date/Time: Aug 15, 2024 04:59 PM Reporting Lab: [facility] [address] Performing Lab: [facility] [address] GLUCOSE,BLOOD- poct (STL) 194 mg/dL H -Aug 15, 2024 11:39 AM [facility] GLUCOSE,BLOOD-poct (STL) Specimen Type: BLOOD Comment: Test Performed by: [id number] Meter #: [id number] Ordering Provider: SILVIA REDDY Report Released Date/Time: Aug 15, 2024 12:00 PM Reporting Lab: [facility] [address] Performing Lab: [facility] [place] [address] GLUCOSE,BLOOD- poct (STL) 127 mg/dL H -Aug 15, 2024 05:07 AM [facility] GLUCOSE,BLOOD-poct (STL) Specimen Type: BLOOD Comment: Test Performed by: [id number] Meter #: [id number] Ordering Provider: SILVIA REDDY Report Released Date/Time: Aug 15, 2024 06:14 AM Reporting Lab: [facility] [address] Performing Lab: [facility] [address] GLUCOSE,BLOOD- poct (STL) 151 mg/dL H -Aug 14, 2024 04:22 PM [facility] GLUCOSE,BLOOD-poct (STL) Specimen Type: BLOOD Comment: Test Performed by: [id number] Meter #: [id number] Ordering Provider: SILVIA REDDY Report Released Date/Time: Aug 14, 2024 04:52 PM Reporting Lab: [facility] Performing Lab: [facility] [address] GLUCOSE,BLOOD- poct (STL) 129 mg/dL H 72-99 Aug 14, 2024 11:21 AM [facility] GLUCOSE,BLOOD-poct (STL) Specimen Type: BLOOD Comment: Test Performed by: [id number] Meter #: [id number] Ordering Provider: SILVIA REDDY Report Released Date/Time: Aug 14, 2024 11:37 AM Reporting Lab: [facility] [address] Performing Lab: [facility] [address] GLUCOSE,BLOOD- poct (STL) 135 mg/dL H 72-99 Aug 14, 2024 06:59 AM [facility] QUANTIFERON-TB,4 TUBE Specimen Type: [...] For additional information, please refer to http://[email or web address] WeAre.Us. MetaJure/faq/JGS354 (This link is being provided for information/ educational purposes only.) Test Performed by [email or web address] [place], [facility], [address] [place] [address] Tommie Garcia M.D., Ph.D., Director of Laboratories , [facility] [id number] Ordering Provider: SILVIA REDDY Report Released Date/Time: Aug 11, 2024 03:58 PM Reporting Lab: [facility] [address] [address] Performing Lab: [facility] [id number] [place] [id number] .NIL - QUANTIFERON 0.04 [IU]/mL .MITOGEN-NIL 0.39 [IU]/mL .QUANTIFERON INDETERMINATE NEGATIVE .TB1-NIL <0.00 [IU]/mL .TB2-NIL <0.00 [IU]/mL Aug 14, 2024 06:59 AM [facility] MAGNESIUM Specimen Type: PLASMA Comment: No hemolysis noted. Ordering Provider: SILVIA REDDY Report Released Date/Time: Aug 11, 2024 03:58 PM Reporting Lab: [facility] [address] Performing Lab: [facility] [address] MAGNESIUM 1.9 mg/dL 1.6-2.6 Aug 14, 2024 06:59 AM [facility] B12 Specimen Type: SERUM No comment entered. Ordering Provider: SILVIA REDDY Report Released Date/Time: Aug 11, 2024 03:58 PM Reporting Lab: [facility] [id number] Performing Lab: [facility] [phone] B12 757 pg/mL 213-816 Aug 14, 2024 06:59 AM [facility] FOLATE (STL-MA) Specimen Type: SERUM No comment entered. Ordering Provider: SILVIA REDDY Report Released Date/Time: Aug 11, 2024 03:58 PM Reporting Lab: [facility] [address] Performing Lab: [facility] [id number] FOLATE (STL-MA) 6.8 ng/mL L 7-20 Aug 14, 2024 06:59 AM [facility] VITAMIN D, 25-HYDROXY Specimen Type: SERUM No comment entered. Ordering Provider: SILVIA REDDY Report Released Date/Time: Aug 11, 2024 03:58 PM Reporting Lab: [facility] [phone] Performing Lab: [facility] #[address] [facility] [phone] VITAMIN D, 25-HYDROXY 8.9 ng/mL L 30-96 Aug 14, 2024 06:59 AM [facility] CBC Specimen Type: BLOOD No comment entered. Ordering Provider: SILVIA REDDY Report Released Date/Time: Aug 11, 2024 03:58 PM Reporting Lab: [facility] [phone] Performing Lab: [facility] #1 [facility] [address] WBC 4.1 10*3/uL 3.6-11.2 RBC 3.20 10*6/uL [...] 10*3/uL 0.00-0.20 Aug 14, 2024 06:59 AM [facility] COMPREHENSIVE METABOLIC PANEL Specimen Type: PLASMA Comment: No hemolysis noted. Ordering Provider: SILVIA REDDY Report Released Date/Time: Aug 11, 2024 03:58 PM Reporting Lab: [facility] [place] [phone] Performing Lab: [facility] #[address] [place] [phone] CREATININE 0.75 mg/dL 0.70-1.30 UREA NITROGEN 13.6 [...] 95.88 >60 Aug 14, 2024 05:08 AM [facility] GLUCOSE,BLOOD-poct (STL) Specimen Type: BLOOD Comment: Test Performed by: [id number] Meter #: [id number] Ordering Provider: SILVIA REDDY Report Released Date/Time: Aug 14, 2024 05:52 AM Reporting Lab: [facility] [address] Performing Lab: [facility] [address] GLUCOSE,BLOOD- poct (STL) 135 mg/dL H 72-99 Aug 13, 2024 04:27 PM [facility] GLUCOSE,BLOOD-poct (STL) Specimen Type: BLOOD Comment: Test Performed by: [id number] Meter #: [id number] Ordering Provider: SILVIA REDDY Report Released Date/Time: Aug 13, 2024 04:41 PM Reporting Lab: [facility] [address] Performing Lab: [facility] [address] GLUCOSE,BLOOD- poct (STL) 181 mg/dL H -Aug 13, 2024 11:33 AM [facility] GLUCOSE,BLOOD-poct (STL) Specimen Type: BLOOD Comment: Test Performed by: [id number] Meter #: [id number] Ordering Provider: SILVIA REDDY Report Released Date/Time: Aug 13, 2024 03:55 PM Reporting Lab: [facility] [address] Performing Lab: [facility] [address] GLUCOSE,BLOOD- poct (STL) 140 mg/dL H -Aug 13, 2024 05:54 AM [facility] GLUCOSE,BLOOD-poct (STL) Specimen Type: BLOOD Comment: Test Performed by: [id number] Meter #: [id number] Ordering Provider: SILVIA REDDY Report Released Date/Time: Aug 13, 2024 06:20 AM Reporting Lab: [facility] [address] Performing Lab: [facility] [address] GLUCOSE,BLOOD- poct (STL) 112 mg/dL H -Aug 12, 2024 04:35 PM [facility] GLUCOSE,BLOOD-poct (STL) Specimen Type: BLOOD Comment: Test Performed by: [id number] Meter #: [id number] Ordering Provider: SILVIA REDDY Report Released Date/Time: Aug 12, 2024 04:47 PM Reporting Lab: [facility] [address] Performing Lab: [facility] [address] GLUCOSE,BLOOD- poct (STL) 128 mg/dL H 72-99 Aug 12, 2024 11:26 AM [facility] GLUCOSE,BLOOD-poct (STL) Specimen Type: BLOOD Comment: Test Performed by: [id number] Meter #: [id number] Ordering Provider: SILVIA REDDY Report Released Date/Time: Aug 12, 2024 11:45 AM Reporting Lab: [facility] [address] Performing Lab: [facility] [address] GLUCOSE,BLOOD- poct (STL) 188 mg/dL H 72-Aug 12, 2024 06:13 AM [facility] GLUCOSE,BLOOD-poct (STL) Specimen Type: BLOOD Comment: Test Performed by: [id number] Meter #: [id number] Ordering Provider: SILVIA REDDY Report Released Date/Time: Aug 12, 2024 06:25 AM Reporting Lab: [facility] [address] Performing Lab: [facility] [address] GLUCOSE,BLOOD- poct (STL) 116 mg/dL H 72-99 Aug 11, 2024 04:10 PM [facility] GLUCOSE,BLOOD-poct (STL) Specimen Type: BLOOD Comment: Test Performed by: [id number] Meter #: [id number] Ordering Provider: SILVIA REDDY Report Released Date/Time: Aug 11, 2024 04:27 PM Reporting Lab: [facility] [place] [address] Performing Lab: [facility] [address] GLUCOSE,BLOOD- poct (STL) 184 mg/dL H 72-99 [...] 11, 2024 02:03 PM Reporting Lab: [address] [address] Performing Lab: [address] [address] MRSA SURVL NARES DNA Negative Negative Vital Signs: All taken on the encounter date This section contains inpatient and outpatient Vital Signs collected on the date of the Encounter. Date/Time Temperature Pulse Blood Pressure Respiratory Rate SP02 Pain Height Weight Body Mass Index Source Aug 23, 2024 09:39 AM 0 [facility] N Aug 23, 2024 05:19 AM 71 124/62 99 [facility] N Advance Directives: All historical and [...] 19, 2017 ADVANCE DIRECTIVE DISCUSSION ERICK BARDALES [facility]
--- OUTSIDE RECORDS SUMMARY | 2024-11-17 04:11 | XMS_ITS | Encounter Summary ---
Author Name [facility] [facility] [place] Address [address] [place] [address] Care Team Providers Care Clinical Resource Manager Name Role Phone MANUEL BAIRD Primary [...] PART A Apr 08, 2017 PART A [id number] ASHLEY WALKER PATIENT Selected Encounter This section includes the information on record at [place] for the Encounter. 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 This section includes future appointments and future [...] 2024 01:00 PM AMBULATORY - SURGERY [facility] Sep 21, 2024 01:30 PM AMBULATORY - MEDICINE [facility] Sep 22, 2024 11:00 AM AMBULATORY - MEDICINE [facility] Sep 29, 2024 12:30 PM AMBULATORY - MEDICINE [facility] Oct 02, 2024 09:30 AM AMBULATORY - MEDICINE [facility] Nov 20, 2024 10:30 AM AMBULATORY - SURGERY [facility] Nov 21, 2024 10:00 AM AMBULATORY - NONE [facility] Dec 11, 2024 10:30 AM AMBULATORY - MEDICINE [facility] Active, Pending, and [...] METABOLIC PANEL GREEN LI/HEP BLD/PLAS PLASMA SP [facility] Aug 02, 2024 12:00 AM Laboratory - Chemistry Order CBC BLOOD STAT SP [facility] Aug 17, 2024 03:47 PM Consult Order [facility] Cons Bedside [facility] Lab Results: +/- 30 days [...] 22, 2024 11:26 AM Reporting Lab: [facility] [address] Performing Lab: [facility] [place] [address] MAGNESIUM 1.8 mg/dL 1.6-2.6 Aug 23, 2024 08:21 AM [facility] CBC Specimen Type: BLOOD No comment entered. Ordering Provider: SILVIA REDDY Report Released Date/Time: Aug 22, 2024 11:19 AM Reporting Lab: [facility] [address] Performing Lab: [facility] [address] WBC 4.0 10*3/uL 3.6-11.2 RBC 3.65 10*6/uL [...] Specimen Type: BLOOD Comment: Test Performed by: [id number] Meter #: [id number] Ordering Provider: SILVIA REDDY Report Released Date/Time: Aug 23, 2024 05:23 AM Reporting Lab: [facility] [address] Performing Lab: [facility] [address] GLUCOSE,BLOOD- poct (STL) 99 mg/dL 72-99 Aug 23, 2024 02:45 AM [facility] OCCULT BLOOD FIT X1 SCREEN Specimen Type: FECES No comment entered. Ordering Provider: SILVIA REDDY Report Released Date/Time: Aug 22, 2024 11:23 AM Reporting Lab: [address] [address] Performing Lab: [address] [address] OCCULT BLOOD (FIT) #1 OF 1 Negative Negative Aug 22, 2024 07:30 PM [facility] OCCULT BLOOD FIT X1 SCREEN Specimen Type: FECES No comment entered. Ordering Provider: SILVIA REDDY Report Released Date/Time: Aug 22, 2024 11:23 AM Reporting Lab: [address] [address] Performing Lab: [address] [address] OCCULT BLOOD (FIT) #1 OF 1 Negative Negative Aug 22, 2024 06:15 PM [facility] OCCULT BLOOD FIT X1 SCREEN Specimen Type: FECES No comment entered. Ordering Provider: SILVIA REDDY Report Released Date/Time: Aug 22, 2024 11:23 AM Reporting Lab: [facility] [address] [facility] [address] Performing Lab: [address] [address] OCCULT BLOOD (FIT) #1 OF 1 Negative Negative Aug 22, 2024 04:24 PM [facility] GLUCOSE,BLOOD-poct (STL) Specimen Type: BLOOD Comment: Test Performed by: [id number] Meter #: [id number] Ordering Provider: SILVIA REDDY Report Released Date/Time: Aug 22, 2024 04:36 PM Reporting Lab: [facility] [place] [address] Performing Lab: [facility] [place] [phone] GLUCOSE,BLOOD- poct (STL) 176 mg/dL H 72-99 Aug 22, 2024 04:23 PM [facility] GLUCOSE,BLOOD-poct (STL) Specimen Type: BLOOD Comment: Test Performed by: [id number] Meter #: [id number] Ordering Provider: SILVIA REDDY Report Released Date/Time: Aug 22, 2024 04:36 PM Reporting Lab: [facility] [place] [phone] Performing Lab: [facility] [place] [phone] GLUCOSE,BLOOD- poct (STL) 221 mg/dL H 72-99 Aug 22, 2024 11:15 AM [facility] GLUCOSE,BLOOD-poct (STL) Specimen Type: BLOOD Comment: Test Performed by: [id number] Meter #: [id number] Ordering Provider: SILVIA REDDY Report Released Date/Time: Aug 22, 2024 11:27 AM Reporting Lab: [facility] [place] [address] Performing Lab: [facility] [place] [phone] GLUCOSE,BLOOD- poct (STL) 140 mg/dL H 72-99 Aug 22, 2024 08:03 AM [facility] FERRITIN Specimen Type: SERUM No comment entered. Ordering Provider: JUDIT PERKINS Report Released Date/Time: Aug 18, 2024 11:01 AM Reporting Lab: [facility] [address] [facility] [address] Performing Lab: [facility] [address] [facility] [address] FERRITIN 79.50 ng/mL 22-275 Aug 22, 2024 08:03 AM [facility] IRON/TIBC PROFILE Specimen Type: SERUM No comment entered. Ordering Provider: JUDIT PERKINS Report Released Date/Time: Aug 18, 2024 11:01 AM Reporting Lab: [facility] [address] [place] [address] Performing Lab: [facility] [address] [address] TIBC 283 ug/dL 250-450 TRANSFERRIN 226 mg/dL 163-344 IRON SATURATION 7 L 20-50 IRON 19 ug/dL L 65-175 Aug 22, 2024 08:03 AM [facility] B12 Specimen Type: SERUM No comment entered. Ordering Provider: JUDIT PERKINS Report Released Date/Time: Aug 18, 2024 11:01 AM Reporting Lab: [facility] [address] Performing Lab: [facility] [address] B12 631 pg/mL 213-816 Aug 22, 2024 08:03 AM [facility] COMPREHENSIVE METABOLIC PANEL Specimen Type: PLASMA Comment: No hemolysis noted. Ordering Provider: SILVIA REDDY Report Released Date/Time: Aug 17, 2024 01:18 PM Reporting Lab: [facility] [address] [address] Performing Lab: [facility] [address] [facility] [facility] [address] CREATININE 0.80 mg/dL 0.7-1.3 UREA NITROGEN 9.7 [...] >60 Aug 22, 2024 08:03 AM [facility] CBC Specimen Type: BLOOD No comment entered. Ordering Provider: SILVIA REDDY Report Released Date/Time: Aug 17, 2024 01:18 PM Reporting Lab: [facility] [address] Performing Lab: [facility] [address] WBC 3.5 10*3/uL L 3.6-11.2 RBC 3.23 [...] Aug 22, 2024 05:03 AM [facility] GLUCOSE,BLOOD-poct (STL) Specimen Type: BLOOD Comment: Test Performed by: [id number] Meter #: [id number] Ordering Provider: SILVIA REDDY Report Released Date/Time: Aug 22, 2024 06:17 AM Reporting Lab: [facility] [address] Performing Lab: [facility] [place] [address] GLUCOSE,BLOOD- poct (STL) 170 mg/dL H 72-99 Aug 21, 2024 04:32 PM [facility] GLUCOSE,BLOOD-poct (STL) Specimen Type: BLOOD Comment: Test Performed by: [id number] Meter #: [id number] Ordering Provider: SILVIA REDDY Report Released Date/Time: Aug 21, 2024 04:49 PM Reporting Lab: [facility] [address] Performing Lab: [facility] [address] GLUCOSE,BLOOD- poct (STL) 169 mg/dL H 72-99 Aug 21, 2024 11:53 AM [facility] GLUCOSE,BLOOD-poct (STL) Specimen Type: BLOOD Comment: Test Performed by: [id number] Meter #: [id number] Ordering Provider: SILVIA REDDY Report Released Date/Time: Aug 21, 2024 12:11 PM Reporting Lab: [facility] [address] Performing Lab: [facility] [address] GLUCOSE,BLOOD- poct (STL) 149 mg/dL H 72-99 Aug 21, 2024 05:10 AM [facility] GLUCOSE,BLOOD-poct (STL) Specimen Type: BLOOD Comment: Test Performed by: [id number] Meter #: [id number] Ordering Provider: SILVIA REDDY Report Released Date/Time: Aug 21, 2024 05:27 AM Reporting Lab: [facility] [address] Performing Lab: [facility] [address] GLUCOSE,BLOOD- poct (STL) 118 mg/dL H Aug 20, 2024 04:38 PM [facility] GLUCOSE,BLOOD-poct (STL) Specimen Type: BLOOD Comment: Test Performed by: [id number] Meter #: [id number] Ordering Provider: SILVIA REDDY Report Released Date/Time: Aug 21, 2024 01:55 AM Reporting Lab: [facility] [address] Performing Lab: [facility] [address] GLUCOSE,BLOOD- poct (STL) 169 mg/dL H Aug 20, 2024 04:36 PM [facility] GLUCOSE,BLOOD-poct (STL) Specimen Type: BLOOD Comment: Test Performed by: [id number] Meter #: [id number] Ordering Provider: SILVIA REDDY Report Released Date/Time: Aug 21, 2024 01:55 AM Reporting Lab: [facility] [address] Performing Lab: [facility] [address] GLUCOSE,BLOOD- poct (STL) 395 mg/dL H -Aug 20, 2024 11:45 AM [facility] GLUCOSE,BLOOD-poct (STL) Specimen Type: BLOOD Comment: Test Performed by: [id number] Meter #: [id number] Ordering Provider: SILVIA REDDY Report Released Date/Time: Aug 20, 2024 11:56 AM Reporting Lab: [facility] [address] Performing Lab: [facility] [address] GLUCOSE,BLOOD- poct (STL) 169 mg/dL H 72-99 Aug 20, 2024 05:06 AM [facility] GLUCOSE,BLOOD-poct (STL) Specimen Type: BLOOD Comment: Test Performed by: [id number] Meter #: [id number] Ordering Provider: SILVIA REDDY Report Released Date/Time: Aug 20, 2024 06:05 AM Reporting Lab: [facility] [address] Performing Lab: [facility] [place] [address] GLUCOSE,BLOOD- poct (STL) 115 mg/dL H 72-Aug 19, 2024 04:23 PM [facility] GLUCOSE,BLOOD-poct (STL) Specimen Type: BLOOD Comment: Test Performed by: [id number] Meter #: [id number] Ordering Provider: SILVIA REDDY Report Released Date/Time: Aug 19, 2024 05:54 PM Reporting Lab: [facility] [address] Performing Lab: [facility] [address] GLUCOSE,BLOOD- poct (STL) 137 mg/dL H 72-99 Aug 19, 2024 11:28 AM [facility] GLUCOSE,BLOOD-poct (STL) Specimen Type: BLOOD Comment: Test Performed by: [id number] Meter #: [id number] Ordering Provider: SILVIA REDDY Report Released Date/Time: Aug 19, 2024 11:51 AM Reporting Lab: [facility] [place] [address] Performing Lab: [facility] [address] GLUCOSE,BLOOD- poct (STL) 190 mg/dL H Aug 19, 2024 05:21 AM [facility] GLUCOSE,BLOOD-poct (STL) Specimen Type: BLOOD Comment: Test Performed by: [id number] Meter #: [id number] Ordering Provider: SILVIA REDDY Report Released Date/Time: Aug 19, 2024 05:56 AM Reporting Lab: [facility] [address] Performing Lab: [facility] [address] GLUCOSE,BLOOD- poct (STL) 130 mg/dL H Aug 18, 2024 04:49 PM [facility] GLUCOSE,BLOOD-poct (STL) Specimen Type: BLOOD Comment: Test Performed by: [id number] Meter #: [id number] Ordering Provider: SILVIA REDDY Report Released Date/Time: Aug 18, 2024 05:01 PM Reporting Lab: [facility] [address] Performing Lab: [facility] [address] GLUCOSE,BLOOD- poct (STL) 129 mg/dL H Aug 18, 2024 11:23 AM [facility] GLUCOSE,BLOOD-poct (STL) Specimen Type: BLOOD Comment: Test Performed by: [id number] Meter #: [id number] Ordering Provider: SILVIA REDDY Report Released Date/Time: Aug 18, 2024 11:41 AM Reporting Lab: [facility] [address] Performing Lab: [facility] [address] GLUCOSE,BLOOD- poct (STL) 180 mg/dL H Aug 18, 2024 05:08 AM [facility] GLUCOSE,BLOOD-poct (STL) Specimen Type: BLOOD Comment: Test Performed by: [id number] Meter #: [id number] Ordering Provider: SILVIA REDDY Report Released Date/Time: Aug 18, 2024 05:31 AM Reporting Lab: [facility] [address] Performing Lab: [facility] [address] GLUCOSE,BLOOD- poct (STL) 127 mg/dL H Aug 17, 2024 07:32 PM [facility] GLUCOSE,BLOOD-poct (STL) Specimen Type: BLOOD Comment: Test Performed by: [id number] Meter #: [id number] Ordering Provider: SILVIA REDDY Report Released Date/Time: Aug 17, 2024 07:59 PM Reporting Lab: [facility] [address] Performing Lab: [facility] [address] GLUCOSE,BLOOD- poct (STL) 154 mg/dL H Aug 17, 2024 04:24 PM [facility] GLUCOSE,BLOOD-poct (STL) Specimen Type: BLOOD Comment: Test Performed by: [id number] Meter #: [id number] Ordering Provider: SILVIA REDDY Report Released Date/Time: Aug 17, 2024 04:35 PM Reporting Lab: [facility] [address] Performing Lab: [facility] [address] GLUCOSE,BLOOD- poct (STL) 178 mg/dL H Aug 17, 2024 05:09 AM [facility] GLUCOSE,BLOOD-poct (STL) Specimen Type: BLOOD Comment: Test Performed by: [id number] Meter #: [id number] Ordering Provider: SILVIA REDDY Report Released Date/Time: Aug 17, 2024 05:54 AM Reporting Lab: [facility] [address] Performing Lab: [facility] [address] GLUCOSE,BLOOD- poct (STL) 124 mg/dL H 72-Aug 16, 2024 07:40 PM [facility] GLUCOSE,BLOOD-poct (STL) Specimen Type: BLOOD Comment: Test Performed by: [id number] Meter #: [id number] Ordering Provider: SILVIA REDDY Report Released Date/Time: Aug 16, 2024 08:28 PM Reporting Lab: [facility] [address] Performing Lab: [facility] [address] GLUCOSE,BLOOD- poct (STL) 144 mg/dL H -Aug 16, 2024 04:19 PM [facility] GLUCOSE,BLOOD-poct (STL) Specimen Type: BLOOD Comment: Test Performed by: [id number] Meter #: [id number] Ordering Provider: SILVIA REDDY Report Released Date/Time: Aug 16, 2024 04:45 PM Reporting Lab: [facility] [address] Performing Lab: [facility] [address] GLUCOSE,BLOOD- poct (STL) 138 mg/dL H 72-99 Aug 16, 2024 11:52 AM [facility] GLUCOSE,BLOOD-poct (STL) Specimen Type: BLOOD Comment: Test Performed by: [id number] Meter #: [id number] Ordering Provider: SILVIA REDDY Report Released Date/Time: Aug 16, 2024 12:04 PM Reporting Lab: [facility] [address] Performing Lab: [facility] [address] GLUCOSE,BLOOD- poct (STL) 135 mg/dL H Aug 16, 2024 05:24 AM [facility] GLUCOSE,BLOOD-poct (STL) Specimen Type: BLOOD Comment: Test Performed by: [id number] Meter #: [id number] Ordering Provider: SILVIA REDDY Report Released Date/Time: Aug 16, 2024 05:38 AM Reporting Lab: [facility] [address] Performing Lab: [facility] [address] GLUCOSE,BLOOD- poct (STL) 151 mg/dL H Aug 15, 2024 07:31 PM [facility] GLUCOSE,BLOOD-poct (STL) Specimen Type: BLOOD Comment: Test Performed by: [id number] Meter #: [id number] Ordering Provider: SILVIA REDDY Report Released Date/Time: Aug 15, 2024 08:07 PM Reporting Lab: [facility] [address] Performing Lab: [facility] [address] GLUCOSE,BLOOD- poct (STL) 173 mg/dL H Aug 15, 2024 04:18 PM [facility] GLUCOSE,BLOOD-poct (STL) Specimen Type: BLOOD Comment: Test Performed by: [id number] Meter #: [id number] Ordering Provider: SIVLIA REDDY Report Released Date/Time: Aug 15, 2024 04:59 PM Reporting Lab: [facility] [address] Performing Lab: [facility] [address] GLUCOSE,BLOOD- poct (STL) 136 mg/dL H Aug 15, 2024 04:16 PM [facility] GLUCOSE,BLOOD-poct (STL) Specimen Type: BLOOD Comment: Test Performed by: [id number] Meter #: [id number] Ordering Provider: SILVIA REDDY Report Released Date/Time: Aug 15, 2024 04:59 PM Reporting Lab: [facility] [address] Performing Lab: [facility] [address] GLUCOSE,BLOOD- poct (STL) 194 mg/dL H Aug 15, 2024 11:39 AM [facility] GLUCOSE,BLOOD-poct (STL) Specimen Type: BLOOD Comment: Test Performed by: [id number] Meter #: [id number] Ordering Provider: SILVIA REDDY Report Released Date/Time: Aug 15, 2024 12:00 PM Reporting Lab: [facility] [address] Performing Lab: [facility] [address] GLUCOSE,BLOOD- poct (STL) 127 mg/dL H Aug 15, 2024 05:07 AM [facility] GLUCOSE,BLOOD-poct (STL) Specimen Type: BLOOD Comment: Test Performed by: [id number] Meter #: [id number] Ordering Provider: SILVIA REDDY Report Released Date/Time: Aug 15, 2024 06:14 AM Reporting Lab: [facility] [address] Performing Lab: [facility] [address] GLUCOSE,BLOOD- poct (STL) 151 mg/dL H Aug 14, 2024 04:22 PM [facility] GLUCOSE,BLOOD-poct (STL) Specimen Type: BLOOD Comment: Test Performed by: [id number] Meter #: [id number] Ordering Provider: SILVIA REDDY Report Released Date/Time: Aug 14, 2024 04:52 PM Reporting Lab: [facility] [address] Performing Lab: [facility] [address] GLUCOSE,BLOOD- poct (STL) 129 mg/dL H 72-99 Aug 14, 2024 11:21 AM [facility] GLUCOSE,BLOOD-poct (STL) Specimen Type: BLOOD Comment: Test Performed by: [id number] Meter #: [id number] Ordering Provider: SILVIA REDDY Report Released Date/Time: Aug 14, 2024 11:37 AM Reporting Lab: [facility] [address] Performing Lab: [facility] [address] GLUCOSE,BLOOD- poct (STL) 135 mg/dL H 72-Aug 14, 2024 06:59 AM [facility] QUANTIFERON-TB,4 TUBE Specimen Type: BLOOD Comment: [...] For additional information, please refer to http://education. yWorld. batterii/faq/FLW819 (This link is being provided for information/ educational purposes only.) Test Performed by [facility], [facility], [address] [place], [place] Tommie Garcia M.D., Ph.D., Director of Laboratories , JENNIFERIA [id number] Ordering Provider: SILVIA REDDY Report Released Date/Time: Aug 11, 2024 03:58 PM Reporting Lab: [facility] [address] [address] Performing Lab: [facility] [address] [facility] .NIL - QUANTIFERON 0.04 [IU]/mL .MITOGEN-NIL 0.39 [IU]/mL .QUANTIFERON INDETERMINATE NEGATIVE .TB1-NIL <0.00 [IU]/mL .TB2-NIL <0.00 [IU]/mL Aug 14, 2024 06:59 AM [facility] MAGNESIUM Specimen Type: PLASMA Comment: No hemolysis noted. Ordering Provider: SILVIA REDDY Report Released Date/Time: Aug 11, 2024 03:58 PM Reporting Lab: [facility] [address] [place] [address] Performing Lab: [facility] [address] [place] [phone] MAGNESIUM 1.9 mg/dL 1.6-2.6 Aug 14, 2024 06:59 AM [facility] B12 Specimen Type: SERUM No comment entered. Ordering Provider: SILVIA REDDY Report Released Date/Time: Aug 11, 2024 03:58 PM Reporting Lab: [facility] [address] [place] [address] Performing Lab: [facility] [address] [place] [address] B12 757 pg/mL [phone] Aug 14, 2024 06:59 AM [facility] FOLATE (STL-MA) Specimen Type: SERUM No comment entered. Ordering Provider: SILVIA REDDY Report Released Date/Time: Aug 11, 2024 03:58 PM Reporting Lab: [facility] [address] [place] [address] Performing Lab: [facility] [address] [place] [address] FOLATE (STL-MA) 6.8 ng/mL L 7-20 Aug 14, 2024 06:59 AM [facility] VITAMIN D, 25-HYDROXY Specimen Type: SERUM No comment entered. Ordering Provider: SILVIA REDDY Report Released Date/Time: Aug 11, 2024 03:58 PM Reporting Lab: [facility] [address] [place] [address] Performing Lab: [facility] [address] [place] [address] VITAMIN D, 25-HYDROXY 8.9 ng/mL L 30-96 Aug 14, 2024 06:59 AM [facility] CBC Specimen Type: BLOOD No comment entered. Ordering Provider: SILVIA REDDY Report Released Date/Time: Aug 11, 2024 03:58 PM Reporting Lab: [facility] [address] [place] [address] Performing Lab: [facility] [place] [address] WBC 4.1 10*3/uL 3.6-11.2 RBC 3.20 10*6/uL [...] 0.00-0.20 Aug 14, 2024 06:59 AM [facility] COMPREHENSIVE METABOLIC PANEL Specimen Type: PLASMA Comment: No hemolysis noted. Ordering Provider: SILVIA REDDY Report Released Date/Time: Aug 11, 2024 03:58 PM Reporting Lab: [facility] [facility] [phone] Performing Lab: [facility] [place] [id number] CREATININE 0.75 mg/dL 0.70-1.30 UREA NITROGEN 13.6 [...] >60 Aug 14, 2024 05:08 AM [facility] GLUCOSE,BLOOD-poct (STL) Specimen Type: BLOOD Comment: Test Performed by: [id number] Meter #: [id number] Ordering Provider: SILVIA REDDY Report Released Date/Time: Aug 14, 2024 05:52 AM Reporting Lab: [facility] [address] Performing Lab: [facility] [place] [id number] GLUCOSE,BLOOD- poct (STL) 135 mg/dL H -Aug 13, 2024 04:27 PM [facility] GLUCOSE,BLOOD-poct (STL) Specimen Type: BLOOD Comment: Test Performed by: [id number] Meter #: [id number] Ordering Provider: SILVIA REDDY Report Released Date/Time: Aug 13, 2024 04:41 PM Reporting Lab: [facility] [address] Performing Lab: [facility] [address] GLUCOSE,BLOOD- poct (STL) 181 mg/dL H Aug 13, 2024 11:33 AM [facility] GLUCOSE,BLOOD-poct (STL) Specimen Type: BLOOD Comment: Test Performed by: [id number] Meter #: [id number] Ordering Provider: SILVIA REDDY Report Released Date/Time: Aug 13, 2024 03:55 PM Reporting Lab: [facility] [address] Performing Lab: [facility] [address] GLUCOSE,BLOOD- poct (STL) 140 mg/dL H Aug 13, 2024 05:54 AM [facility] GLUCOSE,BLOOD-poct (STL) Specimen Type: BLOOD Comment: Test Performed by: [id number] Meter #: [id number] Ordering Provider: SILVIA REDDY Report Released Date/Time: Aug 13, 2024 06:20 AM Reporting Lab: [facility] [address] Performing Lab: [facility] [address] GLUCOSE,BLOOD- poct (STL) 112 mg/dL H Aug 12, 2024 04:35 PM [facility] GLUCOSE,BLOOD-poct (STL) Specimen Type: BLOOD Comment: Test Performed by: [id number] Meter #: [id number] Ordering Provider: SILVIA REDDY Report Released Date/Time: Aug 12, 2024 04:47 PM Reporting Lab: [facility] [address] Performing Lab: [facility] [address] GLUCOSE,BLOOD- poct (STL) 128 mg/dL H 72-99 Aug 12, 2024 11:26 AM [facility] GLUCOSE,BLOOD-poct (STL) Specimen Type: BLOOD Comment: Test Performed by: [id number] Meter #: [id number] Ordering Provider: SILVIA REDDY Report Released Date/Time: Aug 12, 2024 11:45 AM Reporting Lab: [facility] [address] Performing Lab: [facility] [place] [address] GLUCOSE,BLOOD- poct (STL) 188 mg/dL H 72-Aug 12, 2024 06:13 AM [facility] GLUCOSE,BLOOD-poct (STL) Specimen Type: BLOOD Comment: Test Performed by: [id number] Meter #: [id number] Ordering Provider: SILVIA REDDY Report Released Date/Time: Aug 12, 2024 06:25 AM Reporting Lab: [facility] [address] Performing Lab: [facility] [address] GLUCOSE,BLOOD- poct (STL) 116 mg/dL H 72-99 Aug 11, 2024 04:10 PM [facility] GLUCOSE,BLOOD-poct (STL) Specimen Type: BLOOD Comment: Test Performed by: [id number] Meter #: [id number] Ordering Provider: SILVIA REDDY Report Released Date/Time: Aug 11, 2024 04:27 PM Reporting Lab: [facility] [address] Performing Lab: [facility] [address] GLUCOSE,BLOOD- poct (STL) 184 mg/dL H 72-99 Aug 11, 2024 01:44 PM [facility] MRSA SURVL NARES DNA Specimen Type: [...] Aug 11, 2024 02:03 PM Reporting Lab: [facility] [address] [facility] [address] Performing Lab: [facility] [address] [facility] [address] MRSA SURVL NARES DNA Negative Negative Social [...] 16, 2024 09:30 AM VA-TOBACCO FORMER USER [facility] Tobacco Use History This section includes a history of the smoking, or tobacco-related health factors, that were collected on or before the date of the Encounter. The data comes from the [place] facility where the Encounter took place. Date/Time Smoking Status/Tobacco Use Comment F acmichael March 16, 2024 09:30 AM PR-TOBACCO QUIT 15 YRS OR MORE [facility] March 22, 2023 10:00 AM VA-TOBACCO FORMER USER [facility] March 22, 2023 10:00 AM VA-TOBACCO QUIT 15 YRS OR MORE [facility] Jan 29, 2022 03:00 PM VA-TOBACCO FORMER USER [facility] Jan 29, 2022 03:00 PM VA-TOBACCO QUIT 15 YRS OR MORE [facility] Feb 07, 2019 04:17 PM VA-TOBACCO FORMER USER [facility] Feb 07, 2019 04:17 PM VA-TOBACCO QUIT 15 YRS OR MORE [facility] March 09, 2018 12:36 PM QUIT TOBACCO >7 YEARS AGO [facility] Aug 05, 2017 02:36 PM QUIT TOBACCO >7 YEARS AGO [facility] Advance Directives: All historical and current [...] 2017 ADVANCE DIRECTIVE DISCUSSION ERICK [facility]ARDALES [facility] Encounter Notes: All associated encounter notes This section contains the clinical notes associated to the Encounter. Date/Time Encounter Note(s) Provider Source Aug 24, 2024 09:52 AM PHARMACY TELEPHONE ENCOUNTER NOTE: LOCAL TITLE: PACT PHARMACIST TELEPHONE [facility] STANDARD TITLE: PHARMACY TELEPHONE ENCOUNTER NOTE DATE OF NOTE: AUG 24, 2024@09:52 ENTRY DATE: AUG 24, 2024@09:52:36 AUTHOR: REED COLLADO EXP COSIGNER: URGENCY: STATUS: COMPLETED CLINICAL PHARMACY FOLLOW-UP Phone appt Subjective: CHET WALKER is a 74 MALE who was contacted by clinic pharmacy for follow up on DM. 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 --Continue Toujeo 300 units/ml 90 units daily --Continue aspart 6 units before dinner. During current visit: Doing better and home and resting Objective: Allergies: TRAMADOL Medications: Active and Recently Outpatient Medications (excluding Supplies): Active Outpatient Medications Status ========= 1) A & D OINT APPLY LIBERALLY TO AFFECTED AREA(S) TWICE ACTIVE DAILY 2) ACCU-CHEK GUIDE (GLUCOSE) TEST STRIP USE 1 STRIP FOR HOLD BLOOD TEST TWICE A DAY ALTERNATING TIMES EACH DAY *STABLE INSULIN THERAPY* March 3) ALBUTEROL 90MCG (CFC-F) 200D ORAL INHL INHALE 1 PUFF ACTIVE BY ORAL INHALATION FOUR TIMES A DAY NEEDED FOR BREATHING. SHAKE WELL. RINSE MOUTHPIECE FREQUENTLY TO PREVENT CLOGGING. using as needed 4) ASPIRIN 81MG EC TAB TAKE ONE TABLET BY MOUTH ONCE A ACTIVE (S) DAY TAKE WITH FOOD. taking 5) ATORVASTATIN CALCIUM 80MG TAB TAKE ONE TABLET BY ACTIVE MOUTH EVERY EVENING Taking 6) CARBOXYMETHYLCELLULOSE NA 0.5% OPH SOLN INSTILL 1 ACTIVE DROP IN BOTH EYES FOUR TIMES A DAY NEEDED FOR DRY EYE(S) 7) CARVEDILOL 6.25MG TAB TAKE ONE-HALF TABLET BY MOUTH ACTIVE TWICE A DAY HEART FAILURE TAKE WITH FOOD. taking 8) CLOPIDOGREL BISULFATE 75MG TAB TAKE ONE TABLET BY ACTIVE MOUTH ONCE A DAY taking 9) DEXTROSE 24GM/31GM SQUEEZE TUBE TAKE 1 TUBE BY MOUTH ACTIVE NEEDED FOR LOW BLOOD SUGAR REPEAT DOSE IF HYPOGLYCEMIA CONTINUES 15 MINUTES AFTER THE FIRST DOSE. 10) DULOXETINE HCL 60MG EC CAP TAKE ONE CAPSULE BY MOUTH ACTIVE ONCE A DAY FOR NERVE PAIN DO NOT ABRUPTLY DISCONTINUE MEDICATION. taking 11) ERGOCALCIF 1,250MCG (D2-50,000UNIT) CAP TAKE ONE ACTIVE CAPSULE BY MOUTH WEEKLY taking weekly , reviewed this is one per week 12) FERROUS SULFATE 325MG TAB TAKE ONE TABLET BY MOUTH ACTIVE ONCE A DAY taking 13) FOLIC ACID 1MG TAB TAKE ONE TABLET BY MOUTH ONCE A ACTIVE DAY taking 14) ISOSORBIDE MONONITRATE 30MG SA TAB TAKE ONE-HALF ACTIVE TABLET BY MOUTH ONCE A DAY TAKE ON EMPTY STOMACH. SWALLOW WHOLE. DO NOT CRUSH OR CHEW. taking 15) MAGNESIUM OXIDE 400MG TAB TAKE ONE TABLET BY MOUTH ACTIVE TWICE A DAY Taking 16) METFORMIN HCL 750MG 24HR SA TAB TAKE ONE TABLET BY ACTIVE MOUTH ONCE A DAY FOR BLOOD SUGAR CONTROL. TAKE WITH FOOD. AVOID ALCOHOL. DISCONTINUE BEFORE GETTING XRAY DYE. taking 17) METHOCARBAMOL 500MG TAB TAKE 1 TABLET BY MOUTH TWICE ACTIVE DAILY NEEDED FOR MUSCLE SPASM old medication 18) MULTIVITAMIN CAP/TAB TAKE 1 TABLET BY MOUTH ONCE A ACTIVE DAY FOR NUTRITION/DIETARY SUPPLEMENTATION taking 19) OMEPRAZOLE 40MG EC CAP TAKE ONE CAPSULE BY MOUTH ACTIVE EVERY MORNING TO LOWER STOMACH ACID. TAKE 30 MINUTES PRIOR TO FOOD. taking 20) PREGABALIN 100MG ORAL CAP TAKE ONE CAPSULE BY MOUTH ACTIVE TWICE A DAY *MAY CAUSE DROWSINESS* taking OTC/Non-VA meds: denies Medication reconciliation completed: YES Adherence to above medications: yes Labs: CMP: SODIUM 138 mEq/L 08/22/2024 06:00 POTASSIUM 3.6 mEq/L 08/22/2024 06:00 CHLORIDE 105 mEq/L 08/22/2024 06:00 UREA NITROGEN 9.7 mg/dL 08/22/2024 06:00 CREATININE 0.80 mg/dL 08/22/2024 06:00 CALCIUM 8.7 mg/dL 08/22/2024 06:00 PROTEIN 6.3 g/dL 08/22/2024 06:00 ALBUMIN 2.9 L g/dL 08/22/2024 06:00 ALKALINE PHOSPHATASE 131 U/L 08/22/2024 06:00 ALT/SGPT 22 U/L 08/22/2024 06:00 AST/SGOT 33 U/L 08/22/2024 06:00 TOTAL BILIRUBIN 0.4 mg/dL 08/22/2024 06:00 CARBON DIOXIDE 23 mEq/L 08/22/2024 06:00 GLUCOSE 135 H mg/dL 08/22/2024 06:00 EGFR (CKD-EPI 2020) 94.0 08/22/2024 06:00 FLP: TRIGLYCERIDE 145 mg/dL 04/07/2024 11:40 CHOLESTEROL 180 mg/dL 04/07/2024 11:40 HDL(New) 34 L mg/dL 04/07/2024 11:40 CALCULATED LDL 117 mg/dL 04/07/2024 11:40 MICRAL/CR PROFILE: CREATuF: 163.4 (06/09/24 11:48) M/CREAT: 103 (06/09/24 11:48) MICRAL: 167.5 (06/09/24 11:48) A1c: HGA1C 7.0 H % 03/06/2024 09:52 TSH: TSH 3.510 uIU/mL 06/05/2024 09:00 Vitamin D: VITAMIN D, 25-HYDROXY 8.9 L ng/mL 08/14/2024 06:00 Self-Monitoring of Blood Glucose (SMBG): none BP last visit:124/62 (08/23/2024 05:19) Pulse last visit: 71 (08/23/2024 05:19) Assessment/Plan: 1) Diabetes Goal A1c <7-8%, FBG 80-130, post-prandial BG <180, per VA/DoD guidelines --Controlled per recent A1c. Pt has been inpt post CABG and medication requirements decreased. Glucose this AM 114. Has jennifer sensors at home. --Continue metformin SA 750mg daily. --Please new jennifer as vet will likely need more medications as he is not home and in charge of his own diet. --Instructed vet to check SMBGs using jennifer DM Health maintenance (+)ASA (+)MELONIE/ARB (+)Statin ()Podiatry (+)Optho May 2024 Diabetes without retinopathy, OU - Hx of Mild NPDR OS - No DME/CSME on clinical examination 2) Med Rec: Reviewed each medication name, dose,. indication per d/c summary -Educated vet on risks/benefits of new medication, new labs. -Education provided on nonpharmacologic ways to improve DM/HLD/HTN (including lifestyle management/dietary/physical activity) specific for the vet's needs. -[place] verbalized understanding to all plans discussed today. Questions were answered to vet's satisfaction. --------- Time spent with vet: 18 minutes RTC: next week , and 09/21 PBM PharmD Pharmacotherapy Rem V12: PHARMACIST INTERVENTIONS: TYPE 2 DIABETES MELLITUS Medication monitoring, no dosage change required, continue to monitor and assess Medication reconciliation (changes to active VA and non-VA medication lists to reconcile differences) No changes to medication lists made (medication review completed, no discrepancies identified) Tickler/Reminder: remind me on: August 30, 2024@00:00 Tickler/Reminder Text: call today to f/u MICHAEL /shen/ REED COLLADO, PHARM.D., [facility] CLINICAL PHARMACIST Signed: 08/24/2024 09:58 REED COLLADO [facility]
--- OUTSIDE RECORDS SUMMARY | 2024-11-17 04:11 | XMS_ITS | Encounter Summary ---
Author Name [facility] [place] [facility] [place] Address [address] [place] [address] Care Team Providers Care Clinical Team Lead Name Role Phone MANUEL BAIRD Primary Care [...] PART A Apr 08, 2017 PART A [id number] ASHLEY FINK PATIENT Selected Encounter This section includes the information on record at [place] for the Encounter. Date/Time Encounter Type Encounter Description Reason Pro vider Source Aug 28, 2024 11:19 AM Outpatient Encounter ADMIN PAT ACTIVTIES (MASNONCT) [...] 2024 09:30 AM AMBULATORY - MEDICINE [facility] Aug 31, 2024 01:00 PM AMBULATORY - SURGERY [facility] Sep 21, 2024 01:30 PM AMBULATORY - MEDICINE [facility] Sep 22, 2024 11:00 AM AMBULATORY - MEDICINE [facility] Sep 29, 2024 12:30 PM AMBULATORY - MEDICINE [facility] Oct 02, 2024 09:30 AM AMBULATORY - MEDICINE [facility] Nov 20, 2024 10:30 AM AMBULATORY - SURGERY [facility] Nov 21, 2024 [...] of theEncounter. The data comes from all [facility]. Test Date/Time Test Type Test Details Facility Name Aug 02, 2024 12:00 AM Laboratory - Chemistry Order CBC BLOOD STAT SP [facility] Aug 02, 2024 12:00 AM Laboratory - Chemistry Order COMPREHENSIVE METABOLIC PANEL GREEN LI/HEP BLD/PLAS PLASMA SP [facility] Aug 17, 2024 03:47 PM Consult Order [facility] Cons Bedside [facility] [...] Range Comment Aug 23, 2024 08:21 AM [facility] MAGNESIUM Specimen Type: PLASMA No comment entered. Ordering Provider: SILVIA REDDY Report Released Date/Time: Aug 22, 2024 11:26 AM Reporting Lab: [facility] [address] Performing Lab: [facility] #1 [facility] [address] MAGNESIUM 1.8 mg/dL 1.6-2.6 Aug 23, 2024 08:21 AM [facility] CBC Specimen Type: BLOOD No comment entered. Ordering Provider: SILVIA REDDY Report Released Date/Time: Aug 22, 2024 11:19 AM Reporting Lab: [facility] [address] Performing Lab: [facility]1 [facility] [address] WBC 4.0 10*3/uL 3.6-11.2 RBC 3.65 10*6/uL [...] 10*3/uL 0.00-0.20 Aug 23, 2024 05:12 AM [facility] GLUCOSE,BLOOD-poct (STL) Specimen Type: BLOOD Comment: Test Performed by: [id number] Meter #: [id number] Ordering Provider: SILVIA REDDY Report Released Date/Time: Aug 23, 2024 05:23 AM Reporting Lab: [facility] #1 [facility] [address] Performing Lab: [facility] #1 [facility] [address] GLUCOSE,BLOOD- poct (STL) 99 mg/dL 72-99 Aug 23, 2024 02:45 AM [facility] OCCULT BLOOD FIT X1 SCREEN Specimen Type: FECES No comment entered. Ordering Provider: ISLVIA REDDY Report Released Date/Time: Aug 22, 2024 11:23 AM Reporting Lab: [address] [address] Performing Lab: [address] [address] OCCULT BLOOD (FIT) #1 OF 1 Negative Negative Aug 22, 2024 07:30 PM [facility] OCCULT BLOOD FIT X1 SCREEN Specimen Type: FECES No comment entered. Ordering Provider: SILVIA REDDY Report Released Date/Time: Aug 22, 2024 11:23 AM Reporting Lab: [address] [address] Performing Lab: [address] [address] OCCULT BLOOD (FIT) #1 OF 1 Negative Negative Aug 22, 2024 06:15 PM [facility] OCCULT BLOOD FIT X1 SCREEN Specimen Type: FECES No comment entered. Ordering Provider: SILVIA REDDY Report Released Date/Time: Aug 22, 2024 11:23 AM Reporting Lab: [address] [address] Performing Lab: [address] [address] OCCULT BLOOD (FIT) #1 OF 1 Negative Negative Aug 22, 2024 04:24 PM [facility] GLUCOSE,BLOOD-poct (STL) Specimen Type: BLOOD Comment: Test Performed by: [id number] Meter #: [id number] Ordering Provider: SILVIA REDDY Report Released Date/Time: Aug 22, 2024 04:36 PM Reporting Lab: [facility]1 [facility] [address] Performing Lab: [facility] #1 [facility] [address] GLUCOSE,BLOOD- poct (STL) 176 mg/dL H 72-Aug 22, 2024 04:23 PM [facility] GLUCOSE,BLOOD-poct (STL) Specimen Type: BLOOD Comment: Test Performed by: [id number] Meter #: [id number] Ordering Provider: SILVIA REDDY Report Released Date/Time: Aug 22, 2024 04:36 PM Reporting Lab: [facility] [address] Performing Lab: [facility] [address] GLUCOSE,BLOOD- poct (STL) 221 mg/dL H 72-Aug 22, 2024 11:15 AM [facility] GLUCOSE,BLOOD-poct (STL) Specimen Type: BLOOD Comment: Test Performed by: [id number] Meter #: [id number] Ordering Provider: SILVIA REDDY Report Released Date/Time: Aug 22, 2024 11:27 AM Reporting Lab: [facility] [address] Performing Lab: [facility]1 [facility] [address] GLUCOSE,BLOOD- poct (STL) 140 mg/dL H 72-Aug 22, 2024 08:03 AM [facility] FERRITIN Specimen Type: SERUM No comment entered. Ordering Provider: JUDIT PERKINS Report Released Date/Time: Aug 18, 2024 11:01 AM Reporting Lab: [facility] [address] [facility] [address] Performing Lab: [facility] [address] [facility] [address] FERRITIN 79.50 ng/mL 22-275 Aug 22, 2024 08:03 AM [facility] IRON/TIBC PROFILE Specimen Type: SERUM No comment entered. Ordering Provider: JUDIT PERKINS Report Released Date/Time: Aug 18, 2024 11:01 AM Reporting Lab: [facility] [address] [facility] [address] Performing Lab: [facility] [address] [facility] [address] TIBC 283 ug/dL 250-450 TRANSFERRIN 226 mg/dL 163-344 IRON SATURATION 7 L 20-50 IRON 19 ug/dL L 65-175 Aug 22, 2024 08:03 AM [facility] B12 Specimen Type: SERUM No comment entered. Ordering Provider: JUDIT PERKINS Report Released Date/Time: Aug 18, 2024 11:01 AM Reporting Lab: [facility]1 [facility] [address] Performing Lab: [facility]1 [facility] [address] B12 631 pg/mL 213-816 Aug 22, 2024 08:03 AM [facility] COMPREHENSIVE METABOLIC PANEL Specimen Type: PLASMA Comment: No hemolysis noted. Ordering Provider: SILVIA REDDY Report Released Date/Time: Aug 17, 2024 01:18 PM Reporting Lab: [facility] [address] [facility] [address] Performing Lab: [facility] [address] [facility] [address] CREATININE 0.80 mg/dL 0.7-1.3 UREA NITROGEN 9.7 [...] 94.0 >60 Aug 22, 2024 08:03 AM [facility] CBC Specimen Type: BLOOD No comment entered. Ordering Provider: SILVIA REDDY Report Released Date/Time: Aug 17, 2024 01:18 PM Reporting Lab: [facility]1 [facility] [address] Performing Lab: [facility]1 [facility] [address] WBC 3.5 10*3/uL L 3.6-11.2 RBC 3.23 [...] NRBC% 0 Aug 22, 2024 05:03 AM [facility] GLUCOSE,BLOOD-poct (STL) Specimen Type: BLOOD Comment: Test Performed by: [id number] Meter #: [id number] Ordering Provider: SILVIA REDDY Report Released Date/Time: Aug 22, 2024 06:17 AM Reporting Lab: [facility]1 [facility] [address] Performing Lab: [facility] [address] GLUCOSE,BLOOD- poct (STL) 170 mg/dL H 72-Aug 21, 2024 04:32 PM [facility] GLUCOSE,BLOOD-poct (STL) Specimen Type: BLOOD Comment: Test Performed by: [id number] Meter #: [id number] Ordering Provider: SILVIA REDDY Report Released Date/Time: Aug 21, 2024 04:49 PM Reporting Lab: [facility] [address] Performing Lab: [facility] [address] GLUCOSE,BLOOD- poct (STL) 169 mg/dL H -Aug 21, 2024 11:53 AM [facility] GLUCOSE,BLOOD-poct (STL) Specimen Type: BLOOD Comment: Test Performed by: [id number] Meter #: [id number] Ordering Provider: SILVIA REDDY Report Released Date/Time: Aug 21, 2024 12:11 PM Reporting Lab: [facility] #1 [facility] [address] Performing Lab: [facility] #1 [facility] [address] GLUCOSE,BLOOD- poct (STL) 149 mg/dL H 72-Aug 21, 2024 05:10 AM [facility] GLUCOSE,BLOOD-poct (STL) Specimen Type: BLOOD Comment: Test Performed by: [id number] Meter #: [id number] Ordering Provider: SILVIA REDDY Report Released Date/Time: Aug 21, 2024 05:27 AM Reporting Lab: [facility]1 [facility] [address] Performing Lab: [facility] #1 [facility] [address] GLUCOSE,BLOOD- poct (STL) 118 mg/dL H 72-Aug 20, 2024 04:38 PM [facility] GLUCOSE,BLOOD-poct (STL) Specimen Type: BLOOD Comment: Test Performed by: [id number] Meter #: [id number] Ordering Provider: SILVIA REDDY Report Released Date/Time: Aug 21, 2024 01:55 AM Reporting Lab: [facility] #1 [facility] [address] Performing Lab: [facility] #1 [place] [address] GLUCOSE,BLOOD- poct (STL) 169 mg/dL H Aug 20, 2024 04:36 PM [facility] GLUCOSE,BLOOD-poct (STL) Specimen Type: BLOOD Comment: Test Performed by: [id number] Meter #: [id number] Ordering Provider: SILVIA REDDY Report Released Date/Time: Aug 21, 2024 01:55 AM Reporting Lab: [facility] #1 [facility] [address] Performing Lab: [facility] #1 [facility] [address] GLUCOSE,BLOOD- poct (STL) 395 mg/dL H -Aug 20, 2024 11:45 AM [facility] GLUCOSE,BLOOD-poct (STL) Specimen Type: BLOOD Comment: Test Performed by: [id number] Meter #: [id number] Ordering Provider: SILVIA REDDY Report Released Date/Time: Aug 20, 2024 11:56 AM Reporting Lab: [facility] #1 [facility] [address] Performing Lab: [facility]1 [place] [address] GLUCOSE,BLOOD- poct (STL) 169 mg/dL H -Aug 20, 2024 05:06 AM [facility] GLUCOSE,BLOOD-poct (STL) Specimen Type: BLOOD Comment: Test Performed by: [id number] Meter #: [id number] Ordering Provider: SILVIA REDDY Report Released Date/Time: Aug 20, 2024 06:05 AM Reporting Lab: [facility]1 [facility] [address] Performing Lab: [facility] #1 [facility] [address] GLUCOSE,BLOOD- poct (STL) 115 mg/dL H -Aug 19, 2024 04:23 PM [facility] GLUCOSE,BLOOD-poct (STL) Specimen Type: BLOOD Comment: Test Performed by: [id number] Meter #: [id number] Ordering Provider: SILVIA REDDY Report Released Date/Time: Aug 19, 2024 05:54 PM Reporting Lab: [facility]1 [facility] [address] Performing Lab: [facility] #1 [facility] [address] GLUCOSE,BLOOD- poct (STL) 137 mg/dL H Aug 19, 2024 11:28 AM [facility] GLUCOSE,BLOOD-poct (STL) Specimen Type: BLOOD Comment: Test Performed by: [id number] Meter #: [id number] Ordering Provider: SILVIA REDDY Report Released Date/Time: Aug 19, 2024 11:51 AM Reporting Lab: [facility]1 [facility] [address] Performing Lab: [facility]1 [facility] [address] GLUCOSE,BLOOD- poct (STL) 190 mg/dL H Aug 19, 2024 05:21 AM [facility] GLUCOSE,BLOOD-poct (STL) Specimen Type: BLOOD Comment: Test Performed by: [id number] Meter #: [id number] Ordering Provider: SILVIA REDDY Report Released Date/Time: Aug 19, 2024 05:56 AM Reporting Lab: [facility] #1 [facility] [address] Performing Lab: [facility] [address] GLUCOSE,BLOOD- poct (STL) 130 mg/dL H 72-Aug 18, 2024 04:49 PM [facility] GLUCOSE,BLOOD-poct (STL) Specimen Type: BLOOD Comment: Test Performed by: [id number] Meter #: [id number] Ordering Provider: SILVIA REDDY Report Released Date/Time: Aug 18, 2024 05:01 PM Reporting Lab: [facility] [address] Performing Lab: [facility] [address] GLUCOSE,BLOOD- poct (STL) 129 mg/dL H -Aug 18, 2024 11:23 AM [facility] GLUCOSE,BLOOD-poct (STL) Specimen Type: BLOOD Comment: Test Performed by: [id number] Meter #: [id number] Ordering Provider: SILVIA REDDY Report Released Date/Time: Aug 18, 2024 11:41 AM Reporting Lab: [facility]1 [facility] [address] Performing Lab: [facility]1 [facility] [address] GLUCOSE,BLOOD- poct (STL) 180 mg/dL H -Aug 18, 2024 05:08 AM [facility] GLUCOSE,BLOOD-poct (STL) Specimen Type: BLOOD Comment: Test Performed by: [id number] Meter #: [id number] Ordering Provider: SILVIA REDDY Report Released Date/Time: Aug 18, 2024 05:31 AM Reporting Lab: [facility]1 [facility] [address] Performing Lab: [facility] #1 [facility] [address] GLUCOSE,BLOOD- poct (STL) 127 mg/dL H -Aug 17, 2024 07:32 PM [facility] GLUCOSE,BLOOD-poct (STL) Specimen Type: BLOOD Comment: Test Performed by: [id number] Meter #: [id number] Ordering Provider: SILVIA REDDY Report Released Date/Time: Aug 17, 2024 07:59 PM Reporting Lab: [facility]1 [facility] [address] Performing Lab: [facility]1 [facility] [address] GLUCOSE,BLOOD- poct (STL) 154 mg/dL H Aug 17, 2024 04:24 PM [facility] GLUCOSE,BLOOD-poct (STL) Specimen Type: BLOOD Comment: Test Performed by: [id number] Meter #: [id number] Ordering Provider: SILVIA REDDY Report Released Date/Time: Aug 17, 2024 04:35 PM Reporting Lab: [facility]1 [facility] [address] Performing Lab: [facility]1 [facility] [address] GLUCOSE,BLOOD- poct (STL) 178 mg/dL H Aug 17, 2024 05:09 AM [facility] GLUCOSE,BLOOD-poct (STL) Specimen Type: BLOOD Comment: Test Performed by: [id number] Meter #: [id number] Ordering Provider: SILVIA REDDY Report Released Date/Time: Aug 17, 2024 05:54 AM Reporting Lab: [facility]1 [facility] [address] Performing Lab: [facility]1 [facility] [address] GLUCOSE,BLOOD- poct (STL) 124 mg/dL H -Aug 16, 2024 07:40 PM [facility] GLUCOSE,BLOOD-poct (STL) Specimen Type: BLOOD Comment: Test Performed by: [id number] Meter #: [id number] Ordering Provider: SILVIA REDDY Report Released Date/Time: Aug 16, 2024 08:28 PM Reporting Lab: [facility]1 [facility] [address] Performing Lab: [facility]1 [facility] [address] GLUCOSE,BLOOD- poct (STL) 144 mg/dL H Aug 16, 2024 04:19 PM [facility] GLUCOSE,BLOOD-poct (STL) Specimen Type: BLOOD Comment: Test Performed by: [id number] Meter #: [id number] Ordering Provider: SILVIA REDDY Report Released Date/Time: Aug 16, 2024 04:45 PM Reporting Lab: [facility]1 [facility] [address] Performing Lab: [facility]1 [facility] [address] GLUCOSE,BLOOD- poct (STL) 138 mg/dL H Aug 16, 2024 11:52 AM [facility] GLUCOSE,BLOOD-poct (STL) Specimen Type: BLOOD Comment: Test Performed by: [id number] Meter #: [id number] Ordering Provider: SILVIA REDDY Report Released Date/Time: Aug 16, 2024 12:04 PM Reporting Lab: [facility]1 [facility] [address] Performing Lab: [facility]1 [facility] [address] GLUCOSE,BLOOD- poct (STL) 135 mg/dL H Aug 16, 2024 05:24 AM [facility] GLUCOSE,BLOOD-poct (STL) Specimen Type: BLOOD Comment: Test Performed by: [id number] Meter #: [id number] Ordering Provider: SILVIA REDDY Report Released Date/Time: Aug 16, 2024 05:38 AM Reporting Lab: [facility]1 [facility] [address] Performing Lab: [facility] [address] GLUCOSE,BLOOD- poct (STL) 151 mg/dL H -Aug 15, 2024 07:31 PM [facility] GLUCOSE,BLOOD-poct (STL) Specimen Type: BLOOD Comment: Test Performed by: [id number] Meter #: [id number] Ordering Provider: SILVIA REDDY Report Released Date/Time: Aug 15, 2024 08:07 PM Reporting Lab: [facility]1 [facility] [address] Performing Lab: [facility] [address] GLUCOSE,BLOOD- poct (STL) 173 mg/dL H Aug 15, 2024 04:18 PM [facility] GLUCOSE,BLOOD-poct (STL) Specimen Type: BLOOD Comment: Test Performed by: [id number] Meter #: [id number] Ordering Provider: SILVIA REDDY Report Released Date/Time: Aug 15, 2024 04:59 PM Reporting Lab: [facility]1 [facility] [address] Performing Lab: [facility]1 [facility] [address] GLUCOSE,BLOOD- poct (STL) 136 mg/dL H Aug 15, 2024 04:16 PM [facility] GLUCOSE,BLOOD-poct (STL) Specimen Type: BLOOD Comment: Test Performed by: [id number] Meter #: [id number] Ordering Provider: SILVIA REDDY Report Released Date/Time: Aug 15, 2024 04:59 PM Reporting Lab: [facility] [address] Performing Lab: [facility]1 [facility] [address] GLUCOSE,BLOOD- poct (STL) 194 mg/dL H -Aug 15, 2024 11:39 AM [facility] GLUCOSE,BLOOD-poct (STL) Specimen Type: BLOOD Comment: Test Performed by: [id number] Meter #: [id number] Ordering Provider: SILVIA REDDY Report Released Date/Time: Aug 15, 2024 12:00 PM Reporting Lab: [facility]1 [facility] [address] Performing Lab: [facility]1 [facility] [address] GLUCOSE,BLOOD- poct (STL) 127 mg/dL H Aug 15, 2024 05:07 AM [facility] GLUCOSE,BLOOD-poct (STL) Specimen Type: BLOOD Comment: Test Performed by: [id number] Meter #: [id number] Ordering Provider: SILVIA REDDY Report Released Date/Time: Aug 15, 2024 06:14 AM Reporting Lab: [facility]1 [facility] [address] Performing Lab: [facility]1 [facility] [address] GLUCOSE,BLOOD- poct (STL) 151 mg/dL H Aug 14, 2024 04:22 PM [facility] GLUCOSE,BLOOD-poct (STL) Specimen Type: BLOOD Comment: Test Performed by: [id number] Meter #: [id number] Ordering Provider: SILVIA REDDY Report Released Date/Time: Aug 14, 2024 04:52 PM Reporting Lab: [facility]1 [facility] [address] Performing Lab: [facility] [address] GLUCOSE,BLOOD- poct (STL) 129 mg/dL H 72-99 Aug 14, 2024 11:21 AM [facility] GLUCOSE,BLOOD-poct (STL) Specimen Type: BLOOD Comment: Test Performed by: [id number] Meter #: [id number] Ordering Provider: SILVIA REDDY Report Released Date/Time: Aug 14, 2024 11:37 AM Reporting Lab: [facility] [address] Performing Lab: [facility] [address] GLUCOSE,BLOOD- poct (STL) 135 mg/dL H 72-99 Aug 14, 2024 06:59 AM [facility] QUANTIFERON-TB,4 TUBE Specimen [...] For additional information, please refer to [email or web address] (This link is being provided for information/ educational purposes only.) Test Performed by Sander Thornton, [facility], [address] [place] [address] Tommie Garcia M.D., Ph.D., Director of Laboratories , [facility] [id number] Ordering Provider: SILVIA REDDY Report Released Date/Time: Aug 11, 2024 03:58 PM Reporting Lab: [facility] [address] [facility] [id number] Performing Lab: [facility] [id number] [facility] .NIL - QUANTIFERON 0.04 [IU]/mL .MITOGEN-NIL 0.39 [IU]/mL .QUANTIFERON INDETERMINATE NEGATIVE .TB1-NIL <0.00 [IU]/mL .TB2-NIL <0.00 [IU]/mL Aug 14, 2024 06:59 AM [facility] MAGNESIUM Specimen Type: PLASMA Comment: No hemolysis noted. Ordering Provider: SILVIA REDDY Report Released Date/Time: Aug 11, 2024 03:58 PM Reporting Lab: [facility] [id number] Performing Lab: [facility] [place] [phone] MAGNESIUM 1.9 mg/dL 1.6-2.6 Aug 14, 2024 06:59 AM [facility] B12 Specimen Type: SERUM No comment entered. Ordering Provider: SILVIA REDDY Report Released Date/Time: Aug 11, 2024 03:58 PM Reporting Lab: [facility] [id number] Performing Lab: [facility] [place] [phone] B12 757 pg/mL 213-816 Aug 14, 2024 06:59 AM [facility] FOLATE (STL-MA) Specimen Type: SERUM No comment entered. Ordering Provider: SILVIA REDDY Report Released Date/Time: Aug 11, 2024 03:58 PM Reporting Lab: [facility] [address] Performing Lab: [facility] [place] [phone] FOLATE (STL-MA) 6.8 ng/mL L 7-20 Aug 14, 2024 06:59 AM [facility] VITAMIN D, 25-HYDROXY Specimen Type: SERUM No comment entered. Ordering Provider: SILVIA REDDY Report Released Date/Time: Aug 11, 2024 03:58 PM Reporting Lab: [facility] [place] [phone] Performing Lab: [facility] [place] [phone] VITAMIN D, 25-HYDROXY 8.9 ng/mL L 30-96 Aug 14, 2024 06:59 AM [facility] COMPREHENSIVE METABOLIC PANEL Specimen Type: PLASMA Comment: No hemolysis noted. Ordering Provider: SILVIA REDDY Report Released Date/Time: Aug 11, 2024 03:58 PM Reporting Lab: [facility] [place] [phone] Performing Lab: [facility] [place] [phone] CREATININE 0.75 mg/dL 0.70-1.30 UREA NITROGEN 13.6 [...] 95.88 >60 Aug 14, 2024 06:59 AM [facility] CBC Specimen Type: BLOOD No comment entered. Ordering Provider: SILVIA REDDY Report Released Date/Time: Aug 11, 2024 03:58 PM Reporting Lab: [facility] [address] Performing Lab: [facility] [address] WBC 4.1 10*3/uL 3.6-11.2 RBC 3.20 10*6/uL [...] 10*3/uL 0.00-0.20 Aug 14, 2024 05:08 AM [facility] GLUCOSE,BLOOD-poct (STL) Specimen Type: BLOOD Comment: Test Performed by: [id number] Meter #: [id number] Ordering Provider: SILVIA REDDY Report Released Date/Time: Aug 14, 2024 05:52 AM Reporting Lab: [facility] [address] Performing Lab: [facility] #1 [facility] [address] GLUCOSE,BLOOD- poct (STL) 135 mg/dL H 72-99 Aug 13, 2024 04:27 PM [facility] GLUCOSE,BLOOD-poct (STL) Specimen Type: BLOOD Comment: Test Performed by: [id number] Meter #: [id number] Ordering Provider: SILVIA REDDY Report Released Date/Time: Aug 13, 2024 04:41 PM Reporting Lab: [facility]1 [place] [address] Performing Lab: [facility] [place] [address] GLUCOSE,BLOOD- poct (STL) 181 mg/dL H -Aug 13, 2024 11:33 AM [facility] GLUCOSE,BLOOD-poct (STL) Specimen Type: BLOOD Comment: Test Performed by: [id number] Meter #: [id number] Ordering Provider: SILVIA REDDY Report Released Date/Time: Aug 13, 2024 03:55 PM Reporting Lab: [facility] [place] [address] Performing Lab: [facility] [place] [address] GLUCOSE,BLOOD- poct (STL) 140 mg/dL H Aug 13, 2024 05:54 AM [facility] GLUCOSE,BLOOD-poct (STL) Specimen Type: BLOOD Comment: Test Performed by: [id number] Meter #: [id number] Ordering Provider: SILVIA REDDY Report Released Date/Time: Aug 13, 2024 06:20 AM Reporting Lab: [facility] [place] [address] Performing Lab: [facility] [place] [address] GLUCOSE,BLOOD- poct (STL) 112 mg/dL H -Aug 12, 2024 04:35 PM [facility] GLUCOSE,BLOOD-poct (STL) Specimen Type: BLOOD Comment: Test Performed by: [id number] Meter #: [id number] Ordering Provider: SILVIA REDDY Report Released Date/Time: Aug 12, 2024 04:47 PM Reporting Lab: [facility] [place] [address] Performing Lab: [facility] [address] GLUCOSE,BLOOD- poct (STL) 128 mg/dL H -Aug 12, 2024 11:26 AM [facility] GLUCOSE,BLOOD-poct (STL) Specimen Type: BLOOD Comment: Test Performed by: [id number] Meter #: [id number] Ordering Provider: SILVIA REDDY Report Released Date/Time: Aug 12, 2024 11:45 AM Reporting Lab: [facility] [address] Performing Lab: [facility]1 [facility] [address] GLUCOSE,BLOOD- poct (STL) 188 mg/dL H Aug 12, 2024 06:13 AM [facility] GLUCOSE,BLOOD-poct (STL) Specimen Type: BLOOD Comment: Test Performed by: [id number] Meter #: [id number] Ordering Provider: SILVIA REDDY Report Released Date/Time: Aug 12, 2024 06:25 AM Reporting Lab: [facility] [address] Performing Lab: [facility]1 [facility] [address] GLUCOSE,BLOOD- poct (STL) 116 mg/dL H Aug 11, 2024 04:10 PM [facility] GLUCOSE,BLOOD-poct (STL) Specimen Type: BLOOD Comment: Test Performed by: [id number] Meter #: [id number] Ordering Provider: SILVIA REDDY Report Released Date/Time: Aug 11, 2024 04:27 PM Reporting Lab: [facility] [address] Performing Lab: [facility] [address] GLUCOSE,BLOOD- poct (STL) 184 mg/dL H Aug 11, 2024 01:44 PM [facility] MRSA SURVL NARES DNA [...] PM Reporting Lab: [facility] [address] [facility] [address] Performing Lab: [address] [address] MRSA SURVL NARES DNA Negative Negative Social [...] 10:34 AM QUIT TOBACCO >7 YEARS AGO [facility] Tobacco Use History This section includes a history of the smoking, or tobacco-related health factors, that were collected on or before the date of the Encounter. The data comes from the [place] facility where the Encounter took place. Date/Time Smoking Status/Tobacco Use Comment F acility Sep 30, 2015 10:12 AM QUIT TOBACCO >7 YEARS AGO [facility] Oct 29, 2014 10:23 AM QUIT TOBACCO >7 YEARS AGO [facility] Dec 27, 2013 01:27 PM QUIT TOBACCO >7 YEARS AGO [facility] Feb 24, 2013 02:01 PM LIFETIME NON-USER OF TOBACCO [facility] Feb 11, 2009 10:09 AM QUIT TOBACCO >7 YEARS AGO [facility] Oct 06, 2006 09:30 AM CURRENT NON-TOBACC O USER-HX OF USE [facility] Oct 06, 2006 09:30 AM TOBACCO TERMINATION STAGE [facility] Advance Directives: All historical [...] DIRECTIVE DISCUSSION ERICK BARDALES [facility] Encounter Notes: All associated encounter notes This section contains the clinical notes associated to the Encounter. Date/Time Encounter Note(s) Provider Source Aug 28, 2024 11:21 AM ADMINISTRATIVE NOT E: LOCAL TITLE: SCHEDULING NOTE STL STANDARD TITLE: ADMINISTRATIVE NOTE DATE OF NOTE: AUG 28, 2024@11:21 ENTRY DATE: AUG 28, 2024@11:22:02 AUTHOR: EMILIE SOUSA EXP COSIGNER: URGENCY: STATUS: COMPLETED Minimum Scheduling attempts to contact the [facility] have been made. RTC/Appt/Consult request will be discontinued after 14 days. Clinic: [facility] PACT STAR RES 4 TAMARA: Aug First Call to [facility] - unsuccessful scheduling: Aug Unable to contact , letter sent: Aug Discontinue date (14 calendar days after letter is mailed): Sep Additional comments: LEFT VOICEMAIL. ADDITIONAL RESULTS FROM SCHEDULING ATTEMPTS: /shen/ EMILIE SOUSA [employer] IN[employer] WOMEN'S STUDIES Signed: 08/28/2024 11:22 EMILIE SOUSA [facility] Aug 28, 2024 11:19 AM PHYSICIAN LETTERS: LOCAL TITLE: NO CONTACT LETTER STL STANDARD TITLE: PHYSICIAN LETTERS DATE OF NOTE: AUG 28, 2024@11:19 ENTRY DATE: AUG 28, 2024@11:19:43 AUTHOR: EMILIE SOUSA COSIGNER: URGENCY: STATUS: COMPLETED [facility] [address] [place] [address] AUG 28, 2024 ABIEL FINK [address] [place], [place] [address] Dear Abiel Fink, Thank you for choosing the [facility] as your primary choice for health care. As a partner in your health care, we are attempting to contact you because we have been unsuccessful in reaching you by phone to schedule your clinic appointment. Please call us at [phone], extension [phone] to speak to us regarding making an appointment in the [facility] clinic. Your good health is [...] inquire about scheduling. 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
--- OUTSIDE RECORDS SUMMARY | 2024-11-17 04:11 | XMS_ITS ---
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 Date/Time Encounter Type Encounter Description Reason Pro vider Source Aug 24, 2024 12:11 PM Outpatient Encounter ADMIN PAT ACTIVTIES (MASNONCT) [...] appointments. The data comes from all [facility]. Appointment Date/Time Appointment Type Appointme nt Facility Name Aug 30, 2024 09:30 AM AMBULATORY - MEDICINE [facility] Aug 31, 2024 01:00 PM AMBULATORY - SURGERY [facility] Sep 21, 2024 01:30 PM AMBULATORY - MEDICINE [facility] Sep 22, 2024 11:00 AM AMBULATORY - MEDICINE [facility] Sep 29, 2024 12:30 PM AMBULATORY - MEDICINE [facility] Oct 02, 2024 09:30 AM AMBULATORY - MEDICINE [facility] Nov 20, 2024 10:30 AM AMBULATORY - SURGERY [facility] Nov 21, 2024 10:00 AM AMBULATORY - NONE [facility] Dec 11, 2024 10:30 AM AMBULATORY - MEDICINE [facility] Active, Pending, and Scheduled Orders This section includes a listing of several types of active, pending, and scheduled orders, including clinic medications orders, diagnostic test orders, procedure orders and consult orders; where the start date of the order is 45 days before the date of the Encounter or 45 days after the date of theEncounter. The data comes from all [facility]. Test Date/Time Test Type Test Details Facility Name Aug 02, 2024 12:00 AM Laboratory - Chemistry Order COMPREHENSIVE METABOLIC PANEL GREEN LI/HEP BLD/PLAS PLASMA SP [facility] Aug 02, 2024 12:00 AM Laboratory - Chemistry Order CBC BLOOD STAT SP [facility] Aug 17, 2024 03:47 PM Consult Order [facility] Cons Bedside [facility] Lab Results: +/- 30 days of [...] Range Comment Aug 23, 2024 08:21 AM [facility] MAGNESIUM Specimen Type: PLASMA No comment entered. Ordering Provider: SILVIA REDDY Report Released Date/Time: Aug 22, 2024 11:26 AM Reporting Lab: [facility] [address] Performing Lab: [facility] [address] MAGNESIUM 1.8 mg/dL 1.6-2.6 Aug 23, 2024 08:[address] [facility] CBC Specimen Type: BLOOD No comment entered. Ordering Provider: SILVIA REDDY Report Released Date/Time: Aug 22, 2024 11:19 AM Reporting Lab: [facility] [address] Performing Lab: [facility] [address] WBC 4.0 10*3/uL 3.6-11.2 RBC 3.65 10*6/uL [...] 10*3/uL 0.00-0.20 Aug 23, 2024 05:12 AM [facility] GLUCOSE,BLOOD-poct (STL) Specimen Type: BLOOD Comment: Test Performed by: [id number] Meter #: [id number] Ordering Provider: SILVIA REDDY Report Released Date/Time: Aug 23, 2024 05:23 AM Reporting Lab: [facility] [address] Performing Lab: [facility] [address] GLUCOSE,BLOOD- poct (STL) 99 mg/dL 72-99 Aug 23, 2024 02:45 AM [facility] OCCULT BLOOD FIT X1 SCREEN Specimen Type: FECES No comment entered. Ordering Provider: SILVIA REDDY Report Released Date/Time: Aug 22, 2024 11:23 AM Reporting Lab: [address] [address] Performing Lab: [address] [address] OCCULT BLOOD (FIT) #1 OF 1 Negative Negative Aug 22, 2024 07:30 PM [facility] OCCULT BLOOD FIT X1 SCREEN Specimen Type: FECES No comment entered. Ordering Provider: SILVIA REDDY Report Released Date/Time: Aug 22, 2024 11:23 AM Reporting Lab: [address] [address] Performing Lab: [address] [address] OCCULT BLOOD (FIT) #1 OF 1 Negative Negative Aug 22, 2024 06:15 PM [facility] OCCULT BLOOD FIT X1 SCREEN Specimen Type: FECES No comment entered. Ordering Provider: SILVIA REDDY Report Released Date/Time: Aug 22, 2024 11:23 AM Reporting Lab: [address] [address] Performing Lab: [address] [address] OCCULT BLOOD (FIT) #1 OF 1 Negative Negative Aug 22, 2024 04:24 PM [facility] GLUCOSE,BLOOD-poct (STL) Specimen Type: BLOOD Comment: Test Performed by: [id number] Meter #: [id number] Ordering Provider: SILVIA ERDDY Report Released Date/Time: Aug 22, 2024 04:36 PM Reporting Lab: [facility] [address] Performing Lab: [facility] [address] GLUCOSE,BLOOD- poct (STL) 176 mg/dL H 72-Aug 22, 2024 04:23 PM [facility] GLUCOSE,BLOOD-poct (STL) Specimen Type: BLOOD Comment: Test Performed by: [id number] Meter #: [id number] Ordering Provider: SILVIA REDDY Report Released Date/Time: Aug 22, 2024 04:36 PM Reporting Lab: [facility] [address] Performing Lab: [facility] [address] GLUCOSE,BLOOD- poct (STL) 221 mg/dL H 72-Aug 22, 2024 11:15 AM [facility] GLUCOSE,BLOOD-poct (STL) Specimen Type: BLOOD Comment: Test Performed by: [id number] Meter #: [id number] Ordering Provider: SILVIA REDDY Report Released Date/Time: Aug 22, 2024 11:27 AM Reporting Lab: [facility] [address] Performing Lab: [facility] [address] GLUCOSE,BLOOD- poct (STL) 140 mg/dL H 72-Aug 22, 2024 08:03 AM [facility] FERRITIN Specimen Type: SERUM No comment entered. Ordering Provider: JUDIT PERKINS Report Released Date/Time: Aug 18, 2024 11:01 AM Reporting Lab: [facility] [address] [facility] [address] Performing Lab: [facility] [address] [facility] [facility] [address] FERRITIN 79.50 ng/mL 22-275 Aug 22, 2024 08:03 AM [facility] IRON/TIBC PROFILE Specimen Type: SERUM No comment entered. Ordering Provider: JUDIT PERKINS Report Released Date/Time: Aug 18, 2024 11:01 AM Reporting Lab: [facility] [address] [facility] [address] Performing Lab: [facility] [address] [facility] [address] TIBC 283 ug/dL 250-450 TRANSFERRIN 226 mg/dL 163-344 IRON SATURATION 7 L 20-50 IRON 19 ug/dL L 65-175 Aug 22, 2024 08:03 AM [facility] B12 Specimen Type: SERUM No comment entered. Ordering Provider: JUDIT PERKINS Report Released Date/Time: Aug 18, 2024 11:01 AM Reporting Lab: [facility] [address] Performing Lab: [facility] [address] B12 631 pg/mL 213-816 Aug 22, 2024 08:03 AM [facility] COMPREHENSIVE METABOLIC PANEL Specimen Type: PLASMA Comment: No hemolysis noted. Ordering Provider: SILVIA REDDY Report Released Date/Time: Aug 17, 2024 01:18 PM Reporting Lab: [facility] [address] [facility] [address] Performing Lab: [facility] [address] [facility] [address] CREATININE 0.80 mg/dL 0.7-1.3 UREA NITROGEN 9.7 [...] [facility] [address] Performing Lab: [facility] [address] WBC 3.5 10*3/uL L 3.6-11.2 RBC 3.23 [...] NRBC% 0 Aug 22, 2024 05:[address] [facility] GLUCOSE,BLOOD-poct (STL) Specimen Type: BLOOD Comment: Test Performed by: [id number] Meter #: [id number] Ordering Provider: SILVIA REDDY Report Released Date/Time: Aug 22, 2024 06:17 AM Reporting Lab: [facility] [address] Performing Lab: [facility] [address] GLUCOSE,BLOOD- poct (STL) 170 mg/dL H 72-Aug 21, 2024 04:32 PM [facility] GLUCOSE,BLOOD-poct (STL) Specimen Type: BLOOD Comment: Test Performed by: [id number] Meter #: [id number] Ordering Provider: SILVIA REDDY Report Released Date/Time: Aug 21, 2024 04:49 PM Reporting Lab: [facility] [address] Performing Lab: [facility] [address] GLUCOSE,BLOOD- poct (STL) 169 mg/dL H -Aug 21, 2024 11:53 AM [facility] GLUCOSE,BLOOD-poct (STL) Specimen Type: BLOOD Comment: Test Performed by: [id number] Meter #: [id number] Ordering Provider: SILVIA REDDY Report Released Date/Time: Aug 21, 2024 12:11 PM Reporting Lab: [facility] [address] Performing Lab: [facility] [address] GLUCOSE,BLOOD- poct (STL) 149 mg/dL H 72-Aug 21, 2024 05:10 AM [facility] GLUCOSE,BLOOD-poct (STL) Specimen Type: BLOOD Comment: Test Performed by: [id number] Meter #: [id number] Ordering Provider: SILVIA REDDY Report Released Date/Time: Aug 21, 2024 05:27 AM Reporting Lab: [facility] [address] Performing Lab: [facility] [address] GLUCOSE,BLOOD- poct (STL) 118 mg/dL H 72-Aug 20, 2024 04:38 PM [facility] GLUCOSE,BLOOD-poct (STL) Specimen Type: BLOOD Comment: Test Performed by: [id number] Meter #: [id number] Ordering Provider: SILVIA REDDY Report Released Date/Time: Aug 21, 2024 01:55 AM Reporting Lab: [facility] [address] Performing Lab: [facility] [place] [address] GLUCOSE,BLOOD- poct (STL) 169 mg/dL H Aug 20, 2024 04:36 PM [facility] GLUCOSE,BLOOD-poct (STL) Specimen Type: BLOOD Comment: Test Performed by: [id number] Meter #: [id number] Ordering Provider: SILVIA REDDY Report Released Date/Time: Aug 21, 2024 01:55 AM Reporting Lab: [facility] [address] Performing Lab: [facility] [address] GLUCOSE,BLOOD- poct (STL) 395 mg/dL H -Aug 20, 2024 11:45 AM [facility] GLUCOSE,BLOOD-poct (STL) Specimen Type: BLOOD Comment: Test Performed by: [id number] Meter #: [id number] Ordering Provider: SILVIA REDDY Report Released Date/Time: Aug 20, 2024 11:56 AM Reporting Lab: [facility] [address] Performing Lab: [facility] [place] [address] GLUCOSE,BLOOD- poct (STL) 169 mg/dL H -Aug 20, 2024 05:06 AM [facility] GLUCOSE,BLOOD-poct (STL) Specimen Type: BLOOD Comment: Test Performed by: [id number] Meter #: [id number] Ordering Provider: SILVIA REDDY Report Released Date/Time: Aug 20, 2024 06:05 AM Reporting Lab: [facility] [address] Performing Lab: [facility] [address] GLUCOSE,BLOOD- poct (STL) 115 mg/dL H -Aug 19, 2024 04:23 PM [facility] GLUCOSE,BLOOD-poct (STL) Specimen Type: BLOOD Comment: Test Performed by: [id number] Meter #: [id number] Ordering Provider: SILVIA REDDY Report Released Date/Time: Aug 19, 2024 05:54 PM Reporting Lab: [facility] [address] Performing Lab: [facility] [address] GLUCOSE,BLOOD- poct (STL) 137 mg/dL H Aug 19, 2024 11:28 AM [facility] GLUCOSE,BLOOD-poct (STL) Specimen Type: BLOOD Comment: Test Performed by: [id number] Meter #: [id number] Ordering Provider: SILVIA REDDY Report Released Date/Time: Aug 19, 2024 11:51 AM Reporting Lab: [facility] [address] Performing Lab: [facility] [address] GLUCOSE,BLOOD- poct (STL) 190 mg/dL H Aug 19, 2024 05:21 AM [facility] GLUCOSE,BLOOD-poct (STL) Specimen Type: BLOOD Comment: Test Performed by: [id number] Meter #: [id number] Ordering Provider: SILVIA REDDY Report Released Date/Time: Aug 19, 2024 05:56 AM Reporting Lab: [facility] [address] Performing Lab: [facility] [address] GLUCOSE,BLOOD- poct (STL) 130 mg/dL H 72-Aug 18, 2024 04:49 PM [facility] GLUCOSE,BLOOD-poct (STL) Specimen Type: BLOOD Comment: Test Performed by: [id number] Meter #: [id number] Ordering Provider: SILVIA REDDY Report Released Date/Time: Aug 18, 2024 05:01 PM Reporting Lab: [facility] [address] Performing Lab: [facility] [address] GLUCOSE,BLOOD- poct (STL) 129 mg/dL H -Aug 18, 2024 11:23 AM [facility] GLUCOSE,BLOOD-poct (STL) Specimen Type: BLOOD Comment: Test Performed by: [id number] Meter #: [id number] Ordering Provider: SILVIA REDDY Report Released Date/Time: Aug 18, 2024 11:41 AM Reporting Lab: [facility] [address] Performing Lab: [facility] [address] GLUCOSE,BLOOD- poct (STL) 180 mg/dL H -Aug 18, 2024 05:08 AM [facility] GLUCOSE,BLOOD-poct (STL) Specimen Type: BLOOD Comment: Test Performed by: [id number] Meter #: [id number] Ordering Provider: SILVIA REDDY Report Released Date/Time: Aug 18, 2024 05:31 AM Reporting Lab: [facility] [address] Performing Lab: [facility] [address] GLUCOSE,BLOOD- poct (STL) 127 mg/dL H -Aug 17, 2024 07:32 PM [facility] GLUCOSE,BLOOD-poct (STL) Specimen Type: BLOOD Comment: Test Performed by: [id number] Meter #: [id number] Ordering Provider: SILVIA REDDY Report Released Date/Time: Aug 17, 2024 07:59 PM Reporting Lab: [facility] [address] Performing Lab: [facility] [address] GLUCOSE,BLOOD- poct (STL) 154 mg/dL H Aug 17, 2024 04:24 PM [facility] GLUCOSE,BLOOD-poct (STL) Specimen Type: BLOOD Comment: Test Performed by: [id number] Meter #: [id number] Ordering Provider: SILVIA REDDY Report Released Date/Time: Aug 17, 2024 04:35 PM Reporting Lab: [facility] [address] Performing Lab: [facility] [address] GLUCOSE,BLOOD- poct (STL) 178 mg/dL H Aug 17, 2024 05:09 AM [facility] GLUCOSE,BLOOD-poct (STL) Specimen Type: BLOOD Comment: Test Performed by: [id number] Meter #: [id number] Ordering Provider: SILVIA REDDY Report Released Date/Time: Aug 17, 2024 05:54 AM Reporting Lab: [facility] [address] Performing Lab: [facility] [address] GLUCOSE,BLOOD- poct (STL) 124 mg/dL H -Aug 16, 2024 07:40 PM [facility] GLUCOSE,BLOOD-poct (STL) Specimen Type: BLOOD Comment: Test Performed by: [id number] Meter #: [id number] Ordering Provider: SILVIA REDDY Report Released Date/Time: Aug 16, 2024 08:28 PM Reporting Lab: [facility] [address] Performing Lab: [facility] [address] GLUCOSE,BLOOD- poct (STL) 144 mg/dL H Aug 16, 2024 04:19 PM [facility] GLUCOSE,BLOOD-poct (STL) Specimen Type: BLOOD Comment: Test Performed by: [id number] Meter #: [id number] Ordering Provider: SILVIA REDDY Report Released Date/Time: Aug 16, 2024 04:45 PM Reporting Lab: [facility] [address] Performing Lab: [facility] [address] GLUCOSE,BLOOD- poct (STL) 138 mg/dL H Aug 16, 2024 11:52 AM [facility] GLUCOSE,BLOOD-poct (STL) Specimen Type: BLOOD Comment: Test Performed by: [id number] Meter #: [id number] Ordering Provider: SILVIA REDDY Report Released Date/Time: Aug 16, 2024 12:04 PM Reporting Lab: [facility] [address] Performing Lab: [facility] [address] GLUCOSE,BLOOD- poct (STL) 135 mg/dL H Aug 16, 2024 05:24 AM [facility] GLUCOSE,BLOOD-poct (STL) Specimen Type: BLOOD Comment: Test Performed by: [id number] Meter #: [id number] Ordering Provider: SILVIA REDDY Report Released Date/Time: Aug 16, 2024 05:38 AM Reporting Lab: [facility] [address] Performing Lab: [facility] [address] GLUCOSE,BLOOD- poct (STL) 151 mg/dL H -Aug 15, 2024 07:31 PM [facility] GLUCOSE,BLOOD-poct (STL) Specimen Type: BLOOD Comment: Test Performed by: [id number] Meter #: [id number] Ordering Provider: SILVIA REDDY Report Released Date/Time: Aug 15, 2024 08:07 PM Reporting Lab: [facility] [address] Performing Lab: [facility] [address] GLUCOSE,BLOOD- poct (STL) 173 mg/dL H Aug 15, 2024 04:18 PM [facility] GLUCOSE,BLOOD-poct (STL) Specimen Type: BLOOD Comment: Test Performed by: [id number] Meter #: [id number] Ordering Provider: SILVIA REDDY Report Released Date/Time: Aug 15, 2024 04:59 PM Reporting Lab: [facility] [address] Performing Lab: [facility] [address] GLUCOSE,BLOOD- poct (STL) 136 mg/dL H Aug 15, 2024 04:16 PM [facility] GLUCOSE,BLOOD-poct (STL) Specimen Type: BLOOD Comment: Test Performed by: [id number] Meter #: [id number] Ordering Provider: SILVIA REDDY Report Released Date/Time: Aug 15, 2024 04:59 PM Reporting Lab: [facility] [address] Performing Lab: [facility] [address] GLUCOSE,BLOOD- poct (STL) 194 mg/dL H -Aug 15, 2024 11:39 AM [facility] GLUCOSE,BLOOD-poct (STL) Specimen Type: BLOOD Comment: Test Performed by: [id number] Meter #: [id number] Ordering Provider: SILVIA REDDY Report Released Date/Time: Aug 15, 2024 12:00 PM Reporting Lab: [facility] [address] Performing Lab: [facility] [address] GLUCOSE,BLOOD- poct (STL) 127 mg/dL H Aug 15, 2024 05:07 AM [facility] GLUCOSE,BLOOD-poct (STL) Specimen Type: BLOOD Comment: Test Performed by: [id number] Meter #: [id number] Ordering Provider: SILVIA REDDY Report Released Date/Time: Aug 15, 2024 06:14 AM Reporting Lab: [facility] [address] Performing Lab: [facility] [address] GLUCOSE,BLOOD- poct (STL) 151 mg/dL H Aug 14, 2024 04:22 PM [facility] GLUCOSE,BLOOD-poct (STL) Specimen Type: BLOOD Comment: Test Performed by: [id number] Meter #: [id number] Ordering Provider: SILVIA REDDY Report Released Date/Time: Aug 14, 2024 04:52 PM Reporting Lab: [facility] [address] Performing Lab: [facility] [address] GLUCOSE,BLOOD- poct (STL) 129 mg/dL H 72-99 Aug 14, 2024 11:[address] [facility] GLUCOSE,BLOOD-poct (STL) Specimen Type: BLOOD Comment: Test Performed by: [id number] Meter #: [id number] Ordering Provider: SILVIA REDDY Report Released Date/Time: Aug 14, 2024 11:37 AM Reporting Lab: [facility] [address] Performing Lab: [facility] [address] GLUCOSE,BLOOD- poct (STL) 135 mg/dL H 72-99 Aug 14, 2024 06:[address] [facility] QUANTIFERON-TB,4 TUBE Specimen Type: BLOOD [...] For additional information, please refer to http://education. Groupjump. TokBox/faq/QGV964 (This link is being provided for information/ educational purposes only.) Test Performed by Sander Thornton, [facility], [address] [place] [address] Tommie Garcia M.D., Ph.D., Director of Laboratories , [facility] [id number] Ordering Provider: SILVIA REDDY Report Released Date/Time: Aug 11, 2024 03:58 PM Reporting Lab: [facility] [address] [facility] [address] Performing Lab: [facility] [address] [facility] .NIL - QUANTIFERON 0.04 [IU]/mL .MITOGEN-NIL 0.39 [IU]/mL .QUANTIFERON INDETERMINATE NEGATIVE .TB1-NIL <0.00 [IU]/mL .TB2-NIL <0.00 [IU]/mL Aug 14, 2024 06:[address] [facility] MAGNESIUM Specimen Type: PLASMA Comment: No hemolysis noted. Ordering Provider: SILVIA REDDY Report Released Date/Time: Aug 11, 2024 03:58 PM Reporting Lab: [facility] [address] Performing Lab: [facility] [place] [phone] MAGNESIUM 1.9 mg/dL 1.6-2.6 Aug 14, 2024 06:[address] [facility] B12 Specimen Type: SERUM No comment entered. Ordering Provider: SILVIA REDDY Report Released Date/Time: Aug 11, 2024 03:58 PM Reporting Lab: [facility] [address] Performing Lab: [facility] [place] [phone] B12 757 pg/mL 213-816 Aug 14, 2024 06:[address] [facility] FOLATE (STL-MA) Specimen Type: SERUM No comment entered. Ordering Provider: SILVIA REDDY Report Released Date/Time: Aug 11, 2024 03:58 PM Reporting Lab: [facility] [address] Performing Lab: [facility] [place] [phone] FOLATE (STL-MA) 6.8 ng/mL L 7-20 Aug 14, 2024 06:[address] [facility] VITAMIN D, 25-HYDROXY Specimen Type: SERUM No comment entered. Ordering Provider: SILVIA REDDY Report Released Date/Time: Aug 11, 2024 03:58 PM Reporting Lab: [facility] [place] [address] Performing Lab: [facility] [address] [place] [id number] VITAMIN D, 25-HYDROXY 8.9 ng/mL L 30-96 Aug 14, 2024 06:[address] [facility] CBC Specimen Type: BLOOD No comment entered. Ordering Provider: SILVIA REDDY Report Released Date/Time: Aug 11, 2024 03:58 PM Reporting Lab: [facility] [place] [address] Performing Lab: [facility] [address] [place] [address] WBC 4.1 10*3/uL 3.6-11.2 RBC 3.20 10*6/uL [...] 10*3/uL 0.00-0.20 Aug 14, 2024 06:59 AM [facility] COMPREHENSIVE METABOLIC PANEL Specimen Type: PLASMA Comment: No hemolysis noted. Ordering Provider: SILVIA REDDY Report Released Date/Time: Aug 11, 2024 03:58 PM Reporting Lab: [facility] [facility] [id number] Performing Lab: [facility] [address] [facility] [id number] CREATININE 0.75 mg/dL 0.70-1.30 UREA NITROGEN 13.6 [...] 95.88 >60 Aug 14, 2024 05:08 AM [facility] GLUCOSE,BLOOD-poct (STL) Specimen Type: BLOOD Comment: Test Performed by: [id number] Meter #: [id number] Ordering Provider: SILVIA REDDY Report Released Date/Time: Aug 14, 2024 05:52 AM Reporting Lab: [facility] [facility] [id number] Performing Lab: [facility] [facility] [id number] GLUCOSE,BLOOD- poct (STL) 135 mg/dL H 72-99 Aug 13, 2024 04:27 PM [facility] GLUCOSE,BLOOD-poct (STL) Specimen Type: BLOOD Comment: Test Performed by: [id number] Meter #: [id number] Ordering Provider: SILVIA REDDY Report Released Date/Time: Aug 13, 2024 04:41 PM Reporting Lab: [facility] [place] [address] Performing Lab: [facility] [address] [place] [address] GLUCOSE,BLOOD- poct (STL) 181 mg/dL H -Aug 13, 2024 11:33 AM [facility] GLUCOSE,BLOOD-poct (STL) Specimen Type: BLOOD Comment: Test Performed by: [id number] Meter #: [id number] Ordering Provider: SILVIA REDDY Report Released Date/Time: Aug 13, 2024 03:55 PM Reporting Lab: [facility] [address] [place] [address] Performing Lab: [facility] [place] [address] GLUCOSE,BLOOD- poct (STL) 140 mg/dL H Aug 13, 2024 05:54 AM [facility] GLUCOSE,BLOOD-poct (STL) Specimen Type: BLOOD Comment: Test Performed by: [id number] Meter #: [id number] Ordering Provider: SILVIA REDDY Report Released Date/Time: Aug 13, 2024 06:20 AM Reporting Lab: [facility] [address] [place] [address] Performing Lab: [facility] [address] [place] [address] GLUCOSE,BLOOD- poct (STL) 112 mg/dL H -Aug 12, 2024 04:35 PM [facility] GLUCOSE,BLOOD-poct (STL) Specimen Type: BLOOD Comment: Test Performed by: [id number] Meter #: [id number] Ordering Provider: SILVIA REDDY Report Released Date/Time: Aug 12, 2024 04:47 PM Reporting Lab: [facility] [place] [address] Performing Lab: [facility] [facility] [address] GLUCOSE,BLOOD- poct (STL) 128 mg/dL H -Aug 12, 2024 11:26 AM [facility] GLUCOSE,BLOOD-poct (STL) Specimen Type: BLOOD Comment: Test Performed by: [id number] Meter #: [id number] Ordering Provider: SILVIA REDDY Report Released Date/Time: Aug 12, 2024 11:45 AM Reporting Lab: [facility] [facility] [address] Performing Lab: [facility] [facility] [address] GLUCOSE,BLOOD- poct (STL) 188 mg/dL H Aug 12, 2024 06:13 AM [facility] GLUCOSE,BLOOD-poct (STL) Specimen Type: BLOOD Comment: Test Performed by: [id number] Meter #: [id number] Ordering Provider: SILVIA REDDY Report Released Date/Time: Aug 12, 2024 06:25 AM Reporting Lab: [facility] [facility] [address] Performing Lab: [facility] [facility] [address] GLUCOSE,BLOOD- poct (STL) 116 mg/dL H Aug 11, 2024 04:10 PM [facility] GLUCOSE,BLOOD-poct (STL) Specimen Type: BLOOD Comment: Test Performed by: [id number] Meter #: [id number] Ordering Provider: SILVIA REDDY Report Released Date/Time: Aug 11, 2024 04:27 PM Reporting Lab: [facility] [facility] [address] Performing Lab: [facility] [facility] [address] GLUCOSE,BLOOD- poct (STL) 184 mg/dL H Aug 11, 2024 01:44 PM [facility] MRSA SURVL NARES DNA Specimen [...] Aug 11, 2024 02:03 PM Reporting Lab: [facility] [address] [facility] [address] Performing Lab: [address] [address] MRSA SURVL NARES DNA Negative Negative Social [...] TOBACCO >7 YEARS AGO [facility] Tobacco Use History This section includes a history of the smoking, or tobacco-related health factors, that were collected on or before the date of the Encounter. The data comes from the [place] facility where the Encounter took place. Date/Time Smoking Status/Tobacco Use Comment F acility Sep 30, 2015 10:12 AM QUIT TOBACCO >7 YEARS AGO [facility] Oct 29, 2014 10:23 AM QUIT TOBACCO >7 YEARS AGO [facility] Dec 27, 2013 01:27 PM QUIT TOBACCO >7 YEARS AGO [facility] Feb 24, 2013 02:01 PM LIFETIME NON-USER OF TOBACCO [facility] Feb 11, 2009 10:09 AM QUIT TOBACCO >7 YEARS AGO [facility] Oct 06, 2006 09:30 AM CURRENT NON-TOBACC O USER-HX OF USE [facility] Oct 06, 2006 09:30 AM TOBACCO TERMINATION STAGE [facility] Advance Directives: All historical and current [...] DIRECTIVE DISCUSSION ERICK BARDALES [facility] Encounter Notes: All associated encounter notes This section contains the clinical notes associated to the Encounter. Date/Time Encounter Note(s) Provider Source Aug 24, 2024 12:11 PM ADMINISTRATIVE NOT E: LOCAL TITLE: CONTACT NOTE STL STANDARD TITLE: ADMINISTRATIVE NOTE DATE OF NOTE: AUG 24, 2024@12:11 ENTRY DATE: AUG 24, 2024@12:11:11 AUTHOR: HECTOR PINO EXP COSIGNER: URGENCY: STATUS: COMPLETED CONTACT NOTE STL Has ADDENDA Veterans name and last 4 were used to verify identity Verified Veterans telephone #/Updated telephone number in the system REASON FOR CALL: Other: Reason for call: RETURNED CALL TO RN AND IS REQUESTING A CALL BACK. BEST NUMBER TO REACH : ALERTING RNCM /shen/ HECTOR PINO [employer] Signed: 08/24/2024 12:12 Receipt Acknowledged By: 08/24/2024 15:14 /camryn HALL REGISTERED NURSE 08/24/2024 ADDENDUM STATUS: COMPLETED Patient Contacted, See 08/24/24 V15 PACT Telephone Contact Note /camryn HALL REGISTERED NURSE Signed: 08/24/2024 15:14 HECTOR PINO [facility]
--- OUTSIDE RECORDS SUMMARY | 2024-11-17 04:12 | XMS_ITS | Encounter Summary ---
Author Name [facility] [place] Organization [facility] [place] Address [address] [place] [address] Care Team Providers Care Telecommunications Officer Name Role Phone MANUEL BAIRD Primary [...] PART A Apr 08, 2017 PART A [id number] [phone] ASHLEY FINK PATIENT Selected Encounter This section includes the information on record at [place] for the Encounter. Date/Time Encounter Type Encounter Description Reason Provider Source Aug 31, 2024 02:37 PM Outpatient Encounter ADMIN PAT ACTIVTIES (NICOLETTESHANIQUACT) MANUEL BAIRD Nav Encounter Template Text not used by [place] [...] The data comes from all [facility]. Appointment Date/Time Appointment Type Appointme nt Facility Name Sep 21, 2024 01:30 PM AMBULATORY - MEDICINE [facility] Sep 22, 2024 11:00 AM AMBULATORY - MEDICINE [facility] Sep 29, 2024 12:30 PM AMBULATORY - MEDICINE [facility] Oct 02, 2024 09:30 AM AMBULATORY - MEDICINE [facility] Nov 20, 2024 10:30 AM [facility]ULATORY - SURGERY [facility] Nov 21, 2024 10:00 AM AMBULATORY - NONE . [facility] Dec 11, 2024 10:30 AM AMBULATORY - MEDICINE [facility] Active, Pending, and Scheduled Orders This section includes a listing of several types of active, pending, and scheduled orders, including clinic medications orders, diagnostic test orders, procedure orders and consult orders; where the start date of the order is 45 days before the date of the Encounter or 45 days after the date of theEncounter. The data comes from all [facility]. Test Date/Time Test Type Test Details Facility Name Aug 02, 2024 12:00 AM Laboratory - Chemistry Order CBC BLOOD STAT SP [facility] Aug 02, 2024 12:00 AM Laboratory - Chemistry Order COMPREHENSIVE METABOLIC PANEL GREEN LI/HEP BLD/PLAS PLASMA SP [facility] Aug 17, 2024 03:47 PM Consult Order [facility] Cons Bedside [facility] Lab Results: +/- 30 days of the [...] Range Comment Aug 23, 2024 08:21 AM [facility] CBC Specimen Type: BLOOD No comment entered. Ordering Provider: SILVIA REDDY Report Released Date/Time: Aug 22, 2024 11:19 AM Reporting Lab: [facility] [address] Performing Lab: [facility] [address] WBC 4.0 10*3/uL 3.6-11.2 RBC 3.65 10*6/uL [...] 10*3/uL 0.00-0.20 Aug 23, 2024 08:21 AM [facility] MAGNESIUM Specimen Type: PLASMA No comment entered. Ordering Provider: SILVIA REDDY Report Released Date/Time: Aug 22, 2024 11:26 AM Reporting Lab: [facility] [address] Performing Lab: [facility] [address] MAGNESIUM 1.8 mg/dL 1.6-2.6 Aug 23, 2024 05:12 AM [facility] GLUCOSE,BLOOD-poct (STL) Specimen Type: BLOOD Comment: Test Performed by: [id number] Meter #: [id number] Ordering Provider: SILVIA REDDY Report Released Date/Time: Aug 23, 2024 05:23 AM Reporting Lab: [facility] [address] Performing Lab: [facility] [address] GLUCOSE,BLOOD- poct (STL) 99 mg/dL 72-99 Aug 23, 2024 02:45 AM [facility] OCCULT BLOOD FIT X1 SCREEN Specimen Type: FECES No comment entered. Ordering Provider: SILVIA REDDY Report Released Date/Time: Aug 22, 2024 11:23 AM Reporting Lab: [address] [address] Performing Lab: [address] [address] OCCULT BLOOD (FIT) #1 OF 1 Negative Negative Aug 22, 2024 07:30 PM [facility] OCCULT BLOOD FIT X1 SCREEN Specimen Type: FECES No comment entered. Ordering Provider: SILVIA REDDY Report Released Date/Time: Aug 22, 2024 11:23 AM Reporting Lab: [address] [address] Performing Lab: [address] [address] OCCULT BLOOD (FIT) #1 OF 1 Negative Negative Aug 22, 2024 06:15 PM [facility] OCCULT BLOOD FIT X1 SCREEN Specimen Type: FECES No comment entered. Ordering Provider: SILVIA REDDY Report Released Date/Time: Aug 22, 2024 11:23 AM Reporting Lab: [address] [address] Performing Lab: [address] [address] OCCULT BLOOD (FIT) #1 OF 1 Negative Negative Aug 22, 2024 04:24 PM [facility] GLUCOSE,BLOOD-poct (STL) Specimen Type: BLOOD Comment: Test Performed by: [id number] Meter #: [id number] Ordering Provider: SILVIA REDDY Report Released Date/Time: Aug 22, 2024 04:36 PM Reporting Lab: [facility] [place] [address] Performing Lab: [facility] [place] [address] GLUCOSE,BLOOD- poct (STL) 176 mg/dL H 72-99 Aug 22, 2024 04:23 PM [facility] GLUCOSE,BLOOD-poct (STL) Specimen Type: BLOOD Comment: Test Performed by: [id number] Meter #: [id number] Ordering Provider: SILVIA REDDY Report Released Date/Time: Aug 22, 2024 04:36 PM Reporting Lab: [facility] [place] [address] Performing Lab: [facility] [place] [address] GLUCOSE,BLOOD- poct (STL) 221 mg/dL H 72-99 Aug 22, 2024 11:15 AM [facility] GLUCOSE,BLOOD-poct (STL) Specimen Type: BLOOD Comment: Test Performed by: [id number] Meter #: [id number] Ordering Provider: SILVIA REDDY Report Released Date/Time: Aug 22, 2024 11:27 AM Reporting Lab: [facility] [place] [address] Performing Lab: [facility] [place] [address] GLUCOSE,BLOOD- poct (STL) 140 mg/dL H 72-99 Aug 22, 2024 08:03 AM [facility] CBC Specimen Type: BLOOD No comment entered. Ordering Provider: SILVIA REDDY Report Released Date/Time: Aug 17, 2024 01:18 PM Reporting Lab: [facility] [place] [address] Performing Lab: [facility] [facility] [address] WBC 3.5 10*3/uL L 3.6-11.2 RBC 3.23 [...] 0 Aug 22, 2024 08:03 AM [facility] COMPREHENSIVE METABOLIC PANEL Specimen Type: PLASMA Comment: No hemolysis noted. Ordering Provider: SILVIA REDDY Report Released Date/Time: Aug 17, 2024 01:18 PM Reporting Lab: [facility] [address] [facility] [address] Performing Lab: [facility] [address] [facility] [address] CREATININE 0.80 mg/dL 0.7-1.3 UREA NITROGEN 9.7 [...] 94.0 >60 Aug 22, 2024 08:03 AM [facility] FERRITIN Specimen Type: SERUM No comment entered. Ordering Provider: JUDIT PERKINS Report Released Date/Time: Aug 18, 2024 11:01 AM Reporting Lab: [facility] [address] [place] [address] Performing Lab: [facility] [address] [place] [address] FERRITIN 79.50 ng/mL 22-275 Aug 22, 2024 08:03 AM [facility] B12 Specimen Type: SERUM No comment entered. Ordering Provider: JUDIT PERKINS Report Released Date/Time: Aug 18, 2024 11:01 AM Reporting Lab: [facility] [address] Performing Lab: [facility] [address] B12 631 pg/mL 213-816 Aug 22, 2024 08:03 AM [facility] IRON/TIBC PROFILE Specimen Type: SERUM No comment entered. Ordering Provider: JUDIT PERKINS Report Released Date/Time: Aug 18, 2024 11:01 AM Reporting Lab: [facility] [address] [place] [address] Performing Lab: [facility] [address] [facility] [place] [address] TIBC 283 ug/dL 250-450 TRANSFERRIN 226 mg/dL 163-344 IRON SATURATION 7 L 20-50 IRON 19 ug/dL L 65-175 Aug 22, 2024 05:03 AM [facility] GLUCOSE,BLOOD-poct (STL) Specimen Type: BLOOD Comment: Test Performed by: [id number] Meter #: [id number] Ordering Provider: SILVIA REDDY Report Released Date/Time: Aug 22, 2024 06:17 AM Reporting Lab: [facility] [address] Performing Lab: [facility] [address] GLUCOSE,BLOOD- poct (STL) 170 mg/dL H 72-99 Aug 21, 2024 04:32 PM [facility] GLUCOSE,BLOOD-poct (STL) Specimen Type: BLOOD Comment: Test Performed by: [id number] Meter #: [id number] Ordering Provider: SILVIA REDDY Report Released Date/Time: Aug 21, 2024 04:49 PM Reporting Lab: [facility] [address] Performing Lab: [facility] [address] GLUCOSE,BLOOD- poct (STL) 169 mg/dL H 72-Aug 21, 2024 11:53 AM [facility] GLUCOSE,BLOOD-poct (STL) Specimen Type: BLOOD Comment: Test Performed by: [id number] Meter #: [id number] Ordering Provider: SILVIA REDDY Report Released Date/Time: Aug 21, 2024 12:11 PM Reporting Lab: [facility] [address] Performing Lab: [facility] [address] GLUCOSE,BLOOD- poct (STL) 149 mg/dL H 72-99 Aug 21, 2024 05:10 AM [facility] GLUCOSE,BLOOD-poct (STL) Specimen Type: BLOOD Comment: Test Performed by: [id number] Meter #: [id number] Ordering Provider: SILVIA REDDY Report Released Date/Time: Aug 21, 2024 05:27 AM Reporting Lab: [facility] [address] [place] [address] Performing Lab: [facility] [address] GLUCOSE,BLOOD- poct (STL) 118 mg/dL H -Aug 20, 2024 04:38 PM [facility] GLUCOSE,BLOOD-poct (STL) Specimen Type: BLOOD Comment: Test Performed by: [id number] Meter #: [id number] Ordering Provider: SILVIA REDDY Report Released Date/Time: Aug 21, 2024 01:55 AM Reporting Lab: [facility] [address] Performing Lab: [facility] [address] GLUCOSE,BLOOD- poct (STL) 169 mg/dL H -Aug 20, 2024 04:36 PM [facility] GLUCOSE,BLOOD-poct (STL) Specimen Type: BLOOD Comment: Test Performed by: [id number] Meter #: [id number] Ordering Provider: SILVIA REDDY Report Released Date/Time: Aug 21, 2024 01:55 AM Reporting Lab: [facility] [address] Performing Lab: [facility] [facility] [address] GLUCOSE,BLOOD- poct (STL) 395 mg/dL H -Aug 20, 2024 11:45 AM [facility] GLUCOSE,BLOOD-poct (STL) Specimen Type: BLOOD Comment: Test Performed by: [id number] Meter #: [id number] Ordering Provider: SILVIA REDDY Report Released Date/Time: Aug 20, 2024 11:56 AM Reporting Lab: [facility] [address] Performing Lab: [facility] [facility] [address] GLUCOSE,BLOOD- poct (STL) 169 mg/dL H -Aug 20, 2024 05:06 AM [facility] GLUCOSE,BLOOD-poct (STL) Specimen Type: BLOOD Comment: Test Performed by: [id number] Meter #: [id number] Ordering Provider: SILVIA REDDY Report Released Date/Time: Aug 20, 2024 06:05 AM Reporting Lab: [facility] [address] Performing Lab: [facility] [address] GLUCOSE,BLOOD- poct (STL) 115 mg/dL H -Aug 19, 2024 04:23 PM [facility] GLUCOSE,BLOOD-poct (STL) Specimen Type: BLOOD Comment: Test Performed by: [id number] Meter #: [id number] Ordering Provider: SILVIA REDDY Report Released Date/Time: Aug 19, 2024 05:54 PM Reporting Lab: [facility] [address] Performing Lab: [facility] [address] GLUCOSE,BLOOD- poct (STL) 137 mg/dL H -Aug 19, 2024 11:28 AM [facility] GLUCOSE,BLOOD-poct (STL) Specimen Type: BLOOD Comment: Test Performed by: [id number] Meter #: [id number] Ordering Provider: SILVIA REDDY Report Released Date/Time: Aug 19, 2024 11:51 AM Reporting Lab: [facility] [address] Performing Lab: [facility] [address] GLUCOSE,BLOOD- poct (STL) 190 mg/dL H Aug 19, 2024 05:21 AM [facility] GLUCOSE,BLOOD-poct (STL) Specimen Type: BLOOD Comment: Test Performed by: [id number] Meter #: [id number] Ordering Provider: SILVIA REDDY Report Released Date/Time: Aug 19, 2024 05:56 AM Reporting Lab: [facility] [address] Performing Lab: [facility] [address] GLUCOSE,BLOOD- poct (STL) 130 mg/dL H 72-Aug 18, 2024 04:49 PM [facility] GLUCOSE,BLOOD-poct (STL) Specimen Type: BLOOD Comment: Test Performed by: [id number] Meter #: [id number] Ordering Provider: SILVIA REDDY Report Released Date/Time: Aug 18, 2024 05:01 PM Reporting Lab: [facility] [address] Performing Lab: [facility] [address] GLUCOSE,BLOOD- poct (STL) 129 mg/dL H -Aug 18, 2024 11:23 AM [facility] GLUCOSE,BLOOD-poct (STL) Specimen Type: BLOOD Comment: Test Performed by: [id number] Meter #: [id number] Ordering Provider: SILVIA REDDY Report Released Date/Time: Aug 18, 2024 11:41 AM Reporting Lab: [facility] [address] Performing Lab: [facility] [address] GLUCOSE,BLOOD- poct (STL) 180 mg/dL H -Aug 18, 2024 05:08 AM [facility] GLUCOSE,BLOOD-poct (STL) Specimen Type: BLOOD Comment: Test Performed by: [id number] Meter #: [id number] Ordering Provider: SILVIA REDDY Report Released Date/Time: Aug 18, 2024 05:31 AM Reporting Lab: [facility] [place] [address] Performing Lab: [facility] [address] GLUCOSE,BLOOD- poct (STL) 127 mg/dL H -Aug 17, 2024 07:32 PM [facility] GLUCOSE,BLOOD-poct (STL) Specimen Type: BLOOD Comment: Test Performed by: [id number] Meter #: [id number] Ordering Provider: SILVIA REDDY Report Released Date/Time: Aug 17, 2024 07:59 PM Reporting Lab: [facility] [address] Performing Lab: [facility] [address] GLUCOSE,BLOOD- poct (STL) 154 mg/dL H Aug 17, 2024 04:24 PM [facility] GLUCOSE,BLOOD-poct (STL) Specimen Type: BLOOD Comment: Test Performed by: [id number] Meter #: [id number] Ordering Provider: SILVIA REDDY Report Released Date/Time: Aug 17, 2024 04:35 PM Reporting Lab: [facility] [address] Performing Lab: [facility] [address] GLUCOSE,BLOOD- poct (STL) 178 mg/dL H -Aug 17, 2024 05:09 AM [facility] GLUCOSE,BLOOD-poct (STL) Specimen Type: BLOOD Comment: Test Performed by: [id number] Meter #: [id number] Ordering Provider: SILVIA REDDY Report Released Date/Time: Aug 17, 2024 05:54 AM Reporting Lab: [facility] [address] Performing Lab: [facility] [address] GLUCOSE,BLOOD- poct (STL) 124 mg/dL H Aug 16, 2024 07:40 PM [facility] GLUCOSE,BLOOD-poct (STL) Specimen Type: BLOOD Comment: Test Performed by: [id number] Meter #: [id number] Ordering Provider: SILVIA REDDY Report Released Date/Time: Aug 16, 2024 08:28 PM Reporting Lab: [facility] [address] Performing Lab: [facility] [address] GLUCOSE,BLOOD- poct (STL) 144 mg/dL H Aug 16, 2024 04:19 PM [facility] GLUCOSE,BLOOD-poct (STL) Specimen Type: BLOOD Comment: Test Performed by: [id number] Meter #: [id number] Ordering Provider: SILVIA REDDY Report Released Date/Time: Aug 16, 2024 04:45 PM Reporting Lab: [facility] [address] Performing Lab: [facility] [address] GLUCOSE,BLOOD- poct (STL) 138 mg/dL H Aug 16, 2024 11:52 AM [facility] GLUCOSE,BLOOD-poct (STL) Specimen Type: BLOOD Comment: Test Performed by: [id number] Meter #: [id number] Ordering Provider: SILVIA REDDY Report Released Date/Time: Aug 16, 2024 12:04 PM Reporting Lab: [facility] [address] Performing Lab: [facility] [address] GLUCOSE,BLOOD- poct (STL) 135 mg/dL H Aug 16, 2024 05:24 AM [facility] GLUCOSE,BLOOD-poct (STL) Specimen Type: BLOOD Comment: Test Performed by: [id number] Meter #: [id number] Ordering Provider: SILVIA REDDY Report Released Date/Time: Aug 16, 2024 05:38 AM Reporting Lab: [facility] [address] Performing Lab: [facility] [address] GLUCOSE,BLOOD- poct (STL) 151 mg/dL H 72-Aug 15, 2024 07:31 PM [facility] GLUCOSE,BLOOD-poct (STL) Specimen Type: BLOOD Comment: Test Performed by: [id number] Meter #: [id number] Ordering Provider: SILVIA REDDY Report Released Date/Time: Aug 15, 2024 08:07 PM Reporting Lab: [facility] [address] Performing Lab: [facility] [address] GLUCOSE,BLOOD- poct (STL) 173 mg/dL H -Aug 15, 2024 04:18 PM [facility] GLUCOSE,BLOOD-poct (STL) Specimen Type: BLOOD Comment: Test Performed by: [id number] Meter #: [id number] Ordering Provider: SILVIA REDDY Report Released Date/Time: Aug 15, 2024 04:59 PM Reporting Lab: [facility] [address] Performing Lab: [facility] [address] GLUCOSE,BLOOD- poct (STL) 136 mg/dL H 72-Aug 15, 2024 04:16 PM [facility] GLUCOSE,BLOOD-poct (STL) Specimen Type: BLOOD Comment: Test Performed by: [id number] Meter #: [id number] Ordering Provider: SILVIA REDDY Report Released Date/Time: Aug 15, 2024 04:59 PM Reporting Lab: [facility] [address] Performing Lab: [facility] [address] GLUCOSE,BLOOD- poct (STL) 194 mg/dL H -Aug 15, 2024 11:39 AM [facility] GLUCOSE,BLOOD-poct (STL) Specimen Type: BLOOD Comment: Test Performed by: [id number] Meter #: [id number] Ordering Provider: SILVIA REDDY Report Released Date/Time: Aug 15, 2024 12:00 PM Reporting Lab: [facility] [address] Performing Lab: [facility] [address] GLUCOSE,BLOOD- poct (STL) 127 mg/dL H Aug 15, 2024 05:07 AM [facility] GLUCOSE,BLOOD-poct (STL) Specimen Type: BLOOD Comment: Test Performed by: [id number] Meter #: [id number] Ordering Provider: SILVIA REDDY Report Released Date/Time: Aug 15, 2024 06:14 AM Reporting Lab: [facility] [address] Performing Lab: [facility] [address] GLUCOSE,BLOOD- poct (STL) 151 mg/dL H Aug 14, 2024 04:22 PM [facility] GLUCOSE,BLOOD-poct (STL) Specimen Type: BLOOD Comment: Test Performed by: [id number] Meter #: [id number] Ordering Provider: SILVIA REDDY Report Released Date/Time: Aug 14, 2024 04:52 PM Reporting Lab: [facility] [address] Performing Lab: [facility] [address] GLUCOSE,BLOOD- poct (STL) 129 mg/dL H Aug 14, 2024 11:[address] [facility] GLUCOSE,BLOOD-poct (STL) Specimen Type: BLOOD Comment: Test Performed by: [id number] Meter #: [id number] Ordering Provider: SILVIA REDDY Report Released Date/Time: Aug 14, 2024 11:37 AM Reporting Lab: [facility] [address] Performing Lab: [facility] [address] GLUCOSE,BLOOD- poct (STL) 135 mg/dL H 72-99 Aug 14, 2024 06:59 AM [facility] QUANTIFERON-TB,4 TUBE Specimen Type: [...] For additional information, please refer to http://education. [employer]. [employer]/faq/TJZ823 (This link is being provided for information/ educational purposes only.) Test Performed by [employer] [place], [employer] [facility], [address] [place], [place] Tommie Garcia M.D., Ph.D., Director of Laboratories , STACIE [id number] Ordering Provider: SILVIA REDDY Report Released Date/Time: Aug 11, 2024 03:58 PM Reporting Lab: [facility] [address] [place] [address] Performing Lab: [facility] [address] [facility] .NIL - QUANTIFERON 0.04 [IU]/mL .MITOGEN-NIL 0.39 [IU]/mL .QUANTIFERON INDETERMINATE NEGATIVE .TB1-NIL <0.00 [IU]/mL .TB2-NIL <0.00 [IU]/mL Aug 14, 2024 06:59 AM [facility] MAGNESIUM Specimen Type: PLASMA Comment: No hemolysis noted. Ordering Provider: SILVIA REDDY Report Released Date/Time: Aug 11, 2024 03:58 PM Reporting Lab: [facility] [address] Performing Lab: [facility] [address] MAGNESIUM 1.9 mg/dL 1.6-2.6 Aug 14, 2024 06:59 AM [facility] B12 Specimen Type: SERUM No comment entered. Ordering Provider: SILVIA REDDY Report Released Date/Time: Aug 11, 2024 03:58 PM Reporting Lab: [facility] [address] Performing Lab: [facility] [address] B12 757 pg/mL 213-816 Aug 14, 2024 06:59 AM [facility] VITAMIN D, 25-HYDROXY Specimen Type: SERUM No comment entered. Ordering Provider: SILVIA REDDY Report Released Date/Time: Aug 11, 2024 03:58 PM Reporting Lab: [facility] [id number] Performing Lab: [facility] [id number] VITAMIN D, 25-HYDROXY 8.9 ng/mL L 30-96 Aug 14, 2024 06:59 AM [facility] FOLATE (STL-MA) Specimen Type: SERUM No comment entered. Ordering Provider: SILVIA REDDY Report Released Date/Time: Aug 11, 2024 03:58 PM Reporting Lab: [facility] [place] [address] Performing Lab: [facility] [place] [address] FOLATE (STL-MA) 6.8 ng/mL L 7-20 Aug 14, 2024 06:59 AM [facility] COMPREHENSIVE METABOLIC PANEL Specimen Type: PLASMA Comment: No hemolysis noted. Ordering Provider: SILVIA REDDY Report Released Date/Time: Aug 11, 2024 03:58 PM Reporting Lab: [facility] [place] [address] Performing Lab: [facility] [place] [address] CREATININE 0.75 mg/dL 0.70-1.30 UREA NITROGEN 13.6 [...] Reporting Lab: [facility] [place] [address] Performing Lab: [facility] [place] [address] WBC 4.1 10*3/uL 3.6-11.2 RBC 3.20 10*6/uL [...] Specimen Type: BLOOD Comment: Test Performed by: [id number] Meter #: [id number] Ordering Provider: SILVIA REDDY Report Released Date/Time: Aug 14, 2024 05:52 AM Reporting Lab: [facility] [place] [phone] Performing Lab: [facility] [place] [id number] GLUCOSE,BLOOD- poct (STL) 135 mg/dL H 72-99 Aug 13, 2024 04:27 PM [facility] GLUCOSE,BLOOD-poct (STL) Specimen Type: BLOOD Comment: Test Performed by: [id number] Meter #: [id number] Ordering Provider: SILVIA REDDY Report Released Date/Time: Aug 13, 2024 04:41 PM Reporting Lab: [facility] [address] Performing Lab: [facility] [place] [facility] [address] GLUCOSE,BLOOD- poct (STL) 181 mg/dL H 72-Aug 13, 2024 11:33 AM [facility] GLUCOSE,BLOOD-poct (STL) Specimen Type: BLOOD Comment: Test Performed by: [id number] Meter #: [id number] Ordering Provider: SILVIA REDDY Report Released Date/Time: Aug 13, 2024 03:55 PM Reporting Lab: [facility] [facility] [address] Performing Lab: [facility] [address] [place] [address] GLUCOSE,BLOOD- poct (STL) 140 mg/dL H -Aug 13, 2024 05:54 AM [facility] GLUCOSE,BLOOD-poct (STL) Specimen Type: BLOOD Comment: Test Performed by: [id number] Meter #: [id number] Ordering Provider: SILVIA REDDY Report Released Date/Time: Aug 13, 2024 06:20 AM Reporting Lab: [facility] [facility] [address] Performing Lab: [facility] [facility] [address] GLUCOSE,BLOOD- poct (STL) 112 mg/dL H 72-Aug 12, 2024 04:35 PM [facility] GLUCOSE,BLOOD-poct (STL) Specimen Type: BLOOD Comment: Test Performed by: [id number] Meter #: [id number] Ordering Provider: SILVIA REDDY Report Released Date/Time: Aug 12, 2024 04:47 PM Reporting Lab: [facility] [facility] [address] Performing Lab: [facility] [facility] [address] GLUCOSE,BLOOD- poct (STL) 128 mg/dL H 72-Aug 12, 2024 11:26 AM [facility] GLUCOSE,BLOOD-poct (STL) Specimen Type: BLOOD Comment: Test Performed by: [id number] Meter #: [id number] Ordering Provider: SILVIA REDDY Report Released Date/Time: Aug 12, 2024 11:45 AM Reporting Lab: [facility] [facility] [address] Performing Lab: [facility] [facility] [address] GLUCOSE,BLOOD- poct (STL) 188 mg/dL H Aug 12, 2024 06:13 AM [facility] GLUCOSE,BLOOD-poct (STL) Specimen Type: BLOOD Comment: Test Performed by: [id number] Meter #: [id number] Ordering Provider: SILVIA REDDY Report Released Date/Time: Aug 12, 2024 06:25 AM Reporting Lab: [facility] [facility] [address] Performing Lab: [facility] [facility] [address] GLUCOSE,BLOOD- poct (STL) 116 mg/dL H Aug 11, 2024 04:10 PM [facility] GLUCOSE,BLOOD-poct (STL) Specimen Type: BLOOD Comment: Test Performed by: [id number] Meter #: [id number] Ordering Provider: SILVIA REDDY Report Released Date/Time: Aug 11, 2024 04:27 PM Reporting Lab: [facility] [facility] [address] Performing Lab: [facility] [address] [facility] [address] GLUCOSE,BLOOD- poct (STL) 184 mg/dL H Aug 11, 2024 01:44 PM [facility] MRSA SURVL NARES DNA [...] Aug 11, 2024 02:03 PM Reporting Lab: [facility] [address] [facility] [address] Performing Lab: [facility] [address] [facility] [address] MRSA SURVL NARES DNA Negative Negative Social [...] 2017 ADVANCE DIRECTIVE DISCUSSION ERICK BARDALES [facility] Encounter Notes: All associated encounter notes This section contains the clinical notes associated to the Encounter. Date/Time Encounter Note(s) Provider Source Aug 31, 2024 02:37 PM PHYSICIAN LETTERS: LOCAL TITLE: NO SHOW LETTER STL STANDARD TITLE: PHYSICIAN LETTERS DATE OF NOTE: AUG 31, 2024@14:37 ENTRY DATE: AUG 31, 2024@14:37:50 AUTHOR: SARTHAK BO EXP COSIGNER: URGENCY: STATUS: COMPLETED [facility] [address] [place] [address] AUG 31, 2024 ABIEL FINK [address] [place], [place] [address] Dear Abiel Fink, Thank you for choosing the [facility] as your primary choice for health care. As a partner in your health care, we are attempting to contact you because our records indicate that you did not make it to your scheduled appointment, and we would like to re-schedule. Please call us at [phone], extension [phone] to speak to us regarding making an appointment in the -CARDIAC SURGERY CON clinic. Your good health is important to [...] inquire about scheduling. Sincerely, SARTHAK BO ADVANCED CLINICAL TRANSPLANT COORDINATOR ABIEL FINK TERA[facility]HA [facility]
--- OUTSIDE RECORDS SUMMARY | 2024-11-17 04:12 | XMS_ITS | Encounter Summary ---
Author Name [facility] [place] Address [address] [place] [address] Care Team Providers Care Nephrologist Name Role Phone MANUEL BAIRD Primary Care [...] PART A Apr 08, 2017 PART A [id number] ASHLEY WALKER PATIENT Selected Encounter This section includes the information on record at [place] for the Encounter. Date/Time Encounter Type Encounter Description Reason Pro vider Source Aug 15, 2024 03:23 PM Inpatient Visit EVENT (HISTORICAL) IHE Encounter Template [...] appointments. The data comes from all [facility]. Appointment Date/Time Appointment Type Appointme nt Facility Name Aug 24, 2024 10:00 AM AMBULATORY - MEDICINE [facility] Aug 24, 2024 10:30 AM AMBULATORY - MEDICINE [facility] Aug 30, 2024 09:30 AM AMBULATORY MEDICINE [facility] Aug 31, 2024 01:00 PM AMBULATORY - SURGERY [facility] Sep 21, 2024 01:30 PM AMBULATORY - MEDICINE [facility] Sep 22, 2024 11:00 AM AMBULATORY - MEDICINE [facility] Sep 29, 2024 12:30 PM AMBULATORY - MEDICINE [facility] Oct 02, 2024 09:30 AM AMBULATORY - MEDICINE [facility] Nov 20, 2024 10:30 AM AMBULATORY - SURGERY [facility] Nov 21, 2024 10:00 AM AMBULATORY - NONE [facility] Dec 11, 2024 10:30 AM AMBULATORY - MEDICINE [facility] Active, Pending, and Scheduled Orders This section includes a listing of several types of active, pending, and scheduled orders, including clinic medications orders, diagnostic test orders, procedure orders and consult orders; where the start date of the order is 45 days before the date of the Encounter or 45 days after the date of theEncounter. The data comes from all [facility]. Test Date/Time Test Type Test Details Facility Name Aug 02, 2024 12:00 AM Laboratory - Chemistry Order CBC BLOOD STAT SP [facility] Aug 02, 2024 12:00 AM Laboratory - Chemistry Order COMPREHENSIVE METABOLIC PANEL GREEN LI/HEP BLD/PLAS PLASMA SP [facility] Aug 17, 2024 03:47 PM Consult Order [facility]IT[facility] Cons Bedside [facility] Lab Results: [...] Comment Aug 23, 2024 08:21 AM [facility] MAGNESIUM Specimen Type: PLASMA No comment entered. Ordering Provider: SILVIA REDDY Report Released Date/Time: Aug 22, 2024 11:26 AM Reporting Lab: [facility] [address] Performing Lab: [facility] [address] MAGNESIUM 1.8 mg/dL 1.6-2.6 Aug 23, 2024 08:21 AM [facility] CBC Specimen Type: BLOOD No comment entered. Ordering Provider: SILVIA REDDY Report Released Date/Time: Aug 22, 2024 11:19 AM Reporting Lab: [facility] [address] Performing Lab: [facility] [address] WBC 4.0 10*3/uL 3.6-11.2 RBC 3.65 10*6/uL [...] 0.00-0.20 Aug 23, 2024 05:12 AM [facility] GLUCOSE,BLOOD-poct (STL) Specimen Type: BLOOD Comment: Test Performed by: [id number] Meter #: [id number] Ordering Provider: SILVIA REDDY Report Released Date/Time: Aug 23, 2024 05:23 AM Reporting Lab: [facility] [address] Performing Lab: [facility] [address] GLUCOSE,BLOOD- poct (STL) 99 mg/dL 72-99 Aug 23, 2024 02:45 AM [facility] OCCULT BLOOD FIT X1 SCREEN Specimen Type: FECES No comment entered. Ordering Provider: SILVIA REDDY Report Released Date/Time: Aug 22, 2024 11:23 AM Reporting Lab: [address] [address] Performing Lab: [facility] [address] [place] [address] OCCULT BLOOD (FIT) #1 OF 1 Negative Negative Aug 22, 2024 07:30 PM [facility] OCCULT BLOOD FIT X1 SCREEN Specimen Type: FECES No comment entered. Ordering Provider: SILVIA REDDY Report Released Date/Time: Aug 22, 2024 11:23 AM Reporting Lab: [facility] [address] [place] [address] Performing Lab: [facility] [address] [place] [address] OCCULT BLOOD (FIT) #1 OF 1 Negative Negative Aug 22, 2024 06:15 PM [facility] OCCULT BLOOD FIT X1 SCREEN Specimen Type: FECES No comment entered. Ordering Provider: SILVIA REDDY Report Released Date/Time: Aug 22, 2024 11:23 AM Reporting Lab: [address] [address] Performing Lab: [place] [address] [address] [facility] [address] OCCULT BLOOD (FIT) #1 OF 1 Negative Negative Aug 22, 2024 04:24 PM [facility] GLUCOSE,BLOOD-poct (STL) Specimen Type: BLOOD Comment: Test Performed by: [id number] Meter #: [id number] Ordering Provider: SILVIA REDDY Report Released Date/Time: Aug 22, 2024 04:36 PM Reporting Lab: [facility] [address] Performing Lab: [facility] [address] GLUCOSE,BLOOD- poct (STL) 176 mg/dL H -Aug 22, 2024 04:23 PM [facility] GLUCOSE,BLOOD-poct (STL) Specimen Type: BLOOD Comment: Test Performed by: [id number] Meter #: [id number] Ordering Provider: SILVIA REDDY Report Released Date/Time: Aug 22, 2024 04:36 PM Reporting Lab: [facility] [address] Performing Lab: [facility] [address] GLUCOSE,BLOOD- poct (STL) 221 mg/dL H 72-Aug 22, 2024 11:15 AM [facility] GLUCOSE,BLOOD-poct (STL) Specimen Type: BLOOD Comment: Test Performed by: [id number] Meter #: [id number] Ordering Provider: SILVIA REDDY Report Released Date/Time: Aug 22, 2024 11:27 AM Reporting Lab: [facility] [address] Performing Lab: [facility] [address] GLUCOSE,BLOOD- poct (STL) 140 mg/dL H 72-Aug 22, 2024 08:03 AM [facility] FERRITIN Specimen Type: SERUM No comment entered. Ordering Provider: JUDIT PERKINS Report Released Date/Time: Aug 18, 2024 11:01 AM Reporting Lab: [facility] [address] [facility] [address] Performing Lab: [facility] [address] [facility] [address] FERRITIN 79.50 ng/mL 22-275 Aug 22, 2024 08:03 AM [facility] IRON/TIBC PROFILE Specimen Type: SERUM No comment entered. Ordering Provider: JUDIT PERKINS Report Released Date/Time: Aug 18, 2024 11:01 AM Reporting Lab: [address] [address] Performing Lab: [place] [id number] [facility] [address] TIBC 283 ug/dL 250-450 TRANSFERRIN 226 mg/dL 163-344 IRON SATURATION 7 L 20-50 IRON 19 ug/dL L 65-175 Aug 22, 2024 08:03 AM [facility] B12 Specimen Type: SERUM No comment entered. Ordering Provider: JUDIT PERKINS Report Released Date/Time: Aug 18, 2024 11:01 AM Reporting Lab: [facility] [address] Performing Lab: [facility] [address] B12 631 pg/mL 213-816 Aug 22, 2024 08:03 AM [facility] COMPREHENSIVE METABOLIC PANEL Specimen Type: PLASMA Comment: No hemolysis noted. Ordering Provider: SILVIA REDDY Report Released Date/Time: Aug 17, 2024 01:18 PM Reporting Lab: [facility] [address] [facility] [address] Performing Lab: [address] [address] CREATININE 0.80 mg/dL 0.7-1.3 UREA NITROGEN 9.7 [...] 94.0 >60 Aug 22, 2024 08:03 AM [facility] CBC Specimen Type: BLOOD No comment entered. Ordering Provider: SILVIA REDDY Report Released Date/Time: Aug 17, 2024 01:18 PM Reporting Lab: [facility] [address] Performing Lab: [facility] [address] WBC 3.5 10*3/uL L 3.6-11.2 RBC 3.23 [...] 0 Aug 22, 2024 05:03 AM [facility] GLUCOSE,BLOOD-poct (STL) Specimen Type: BLOOD Comment: Test Performed by: [id number] Meter #: [id number] Ordering Provider: SILVIA REDDY Report Released Date/Time: Aug 22, 2024 06:17 AM Reporting Lab: [facility] [address] Performing Lab: [facility] [address] GLUCOSE,BLOOD- poct (STL) 170 mg/dL H 72-Aug 21, 2024 04:32 PM [facility] GLUCOSE,BLOOD-poct (STL) Specimen Type: BLOOD Comment: Test Performed by: [id number] Meter #: [id number] Ordering Provider: SILVIA REDDY Report Released Date/Time: Aug 21, 2024 04:49 PM Reporting Lab: [facility] [address] Performing Lab: [facility] [address] GLUCOSE,BLOOD- poct (STL) 169 mg/dL H 72-99 Aug 21, 2024 11:53 AM [facility] GLUCOSE,BLOOD-poct (STL) Specimen Type: BLOOD Comment: Test Performed by: [id number] Meter #: [id number] Ordering Provider: SILVIA REDDY Report Released Date/Time: Aug 21, 2024 12:11 PM Reporting Lab: [facility] [address] Performing Lab: [facility] [address] GLUCOSE,BLOOD- poct (STL) 149 mg/dL H 72-99 Aug 21, 2024 05:10 AM [facility] GLUCOSE,BLOOD-poct (STL) Specimen Type: BLOOD Comment: Test Performed by: [id number] Meter #: [id number] Ordering Provider: SILVIA REDDY Report Released Date/Time: Aug 21, 2024 05:27 AM Reporting Lab: [facility] [place] [address] Performing Lab: [facility] [address] GLUCOSE,BLOOD- poct (STL) 118 mg/dL H 72-99 Aug 20, 2024 04:38 PM [facility] GLUCOSE,BLOOD-poct (STL) Specimen Type: BLOOD Comment: Test Performed by: [id number] Meter #: [id number] Ordering Provider: SILVIA REDDY Report Released Date/Time: Aug 21, 2024 01:55 AM Reporting Lab: [facility] [place] [address] Performing Lab: [facility] [place] [address] GLUCOSE,BLOOD- poct (STL) 169 mg/dL H 72-Aug 20, 2024 04:36 PM [facility] GLUCOSE,BLOOD-poct (STL) Specimen Type: BLOOD Comment: Test Performed by: [id number] Meter #: [id number] Ordering Provider: SILVIA REDDY Report Released Date/Time: Aug 21, 2024 01:55 AM Reporting Lab: [facility] [place] [address] Performing Lab: [facility] [address] GLUCOSE,BLOOD- poct (STL) 395 mg/dL H 72-99 Aug 20, 2024 11:45 AM [facility] GLUCOSE,BLOOD-poct (STL) Specimen Type: BLOOD Comment: Test Performed by: [id number] Meter #: [id number] Ordering Provider: SILVIA REDDY Report Released Date/Time: Aug 20, 2024 11:56 AM Reporting Lab: [facility] [place] [address] Performing Lab: [facility] [address] GLUCOSE,BLOOD- poct (STL) 169 mg/dL H -Aug 20, 2024 05:06 AM [facility] GLUCOSE,BLOOD-poct (STL) Specimen Type: BLOOD Comment: Test Performed by: [id number] Meter #: [id number] Ordering Provider: SILVIA REDDY Report Released Date/Time: Aug 20, 2024 06:05 AM Reporting Lab: [facility] [address] Performing Lab: [facility] [address] GLUCOSE,BLOOD- poct (STL) 115 mg/dL H Aug 19, 2024 04:23 PM [facility] GLUCOSE,BLOOD-poct (STL) Specimen Type: BLOOD Comment: Test Performed by: [id number] Meter #: [id number] Ordering Provider: SILVIA REDDY Report Released Date/Time: Aug 19, 2024 05:54 PM Reporting Lab: [facility] [address] Performing Lab: [facility] [address] GLUCOSE,BLOOD- poct (STL) 137 mg/dL H Aug 19, 2024 11:28 AM [facility] GLUCOSE,BLOOD-poct (STL) Specimen Type: BLOOD Comment: Test Performed by: [id number] Meter #: [id number] Ordering Provider: SILVIA REDDY Report Released Date/Time: Aug 19, 2024 11:51 AM Reporting Lab: [facility] [address] Performing Lab: [facility] [address] GLUCOSE,BLOOD- poct (STL) 190 mg/dL H -Aug 19, 2024 05:21 AM [facility] GLUCOSE,BLOOD-poct (STL) Specimen Type: BLOOD Comment: Test Performed by: [id number] Meter #: [id number] Ordering Provider: SILVIA REDDY Report Released Date/Time: Aug 19, 2024 05:56 AM Reporting Lab: [facility] [address] Performing Lab: [facility] [address] GLUCOSE,BLOOD- poct (STL) 130 mg/dL H Aug 18, 2024 04:49 PM [facility] GLUCOSE,BLOOD-poct (STL) Specimen Type: BLOOD Comment: Test Performed by: [id number] Meter #: [id number] Ordering Provider: SILVIA REDDY Report Released Date/Time: Aug 18, 2024 05:01 PM Reporting Lab: [facility] [address] Performing Lab: [facility] [address] GLUCOSE,BLOOD- poct (STL) 129 mg/dL H Aug 18, 2024 11:23 AM [facility] GLUCOSE,BLOOD-poct (STL) Specimen Type: BLOOD Comment: Test Performed by: [id number] Meter #: [id number] Ordering Provider: SILVIA REDDY Report Released Date/Time: Aug 18, 2024 11:41 AM Reporting Lab: [facility] [address] Performing Lab: [facility] [address] GLUCOSE,BLOOD- poct (STL) 180 mg/dL H Aug 18, 2024 05:08 AM [facility] GLUCOSE,BLOOD-poct (STL) Specimen Type: BLOOD Comment: Test Performed by: [id number] Meter #: [id number] Ordering Provider: SILVIA REDDY Report Released Date/Time: Aug 18, 2024 05:31 AM Reporting Lab: [facility] [address] Performing Lab: [facility] [address] GLUCOSE,BLOOD- poct (STL) 127 mg/dL H 72-Aug 17, 2024 07:32 PM [facility] GLUCOSE,BLOOD-poct (STL) Specimen Type: BLOOD Comment: Test Performed by: [id number] Meter #: [id number] Ordering Provider: SILVIA REDDY Report Released Date/Time: Aug 17, 2024 07:59 PM Reporting Lab: [facility] [address] Performing Lab: [facility] [place] [address] GLUCOSE,BLOOD- poct (STL) 154 mg/dL H -Aug 17, 2024 04:24 PM [facility] GLUCOSE,BLOOD-poct (STL) Specimen Type: BLOOD Comment: Test Performed by: [id number] Meter #: [id number] Ordering Provider: SILVIA REDDY Report Released Date/Time: Aug 17, 2024 04:35 PM Reporting Lab: [facility] [address] Performing Lab: [facility] [address] GLUCOSE,BLOOD- poct (STL) 178 mg/dL H 72-Aug 17, 2024 05:09 AM [facility] GLUCOSE,BLOOD-poct (STL) Specimen Type: BLOOD Comment: Test Performed by: [id number] Meter #: [id number] Ordering Provider: SILVIA REDDY Report Released Date/Time: Aug 17, 2024 05:54 AM Reporting Lab: [facility] [place] [address] Performing Lab: [facility] [address] GLUCOSE,BLOOD- poct (STL) 124 mg/dL H Aug 16, 2024 07:40 PM [facility] GLUCOSE,BLOOD-poct (STL) Specimen Type: BLOOD Comment: Test Performed by: [id number] Meter #: [id number] Ordering Provider: SILVIA REDDY Report Released Date/Time: Aug 16, 2024 08:28 PM Reporting Lab: [facility] [address] Performing Lab: [facility] [address] GLUCOSE,BLOOD- poct (STL) 144 mg/dL H Aug 16, 2024 04:19 PM [facility] GLUCOSE,BLOOD-poct (STL) Specimen Type: BLOOD Comment: Test Performed by: [id number] Meter #: [id number] Ordering Provider: SILVIA REDDY Report Released Date/Time: Aug 16, 2024 04:45 PM Reporting Lab: [facility] [address] Performing Lab: [facility] [address] GLUCOSE,BLOOD- poct (STL) 138 mg/dL H Aug 16, 2024 11:52 AM [facility] GLUCOSE,BLOOD-poct (STL) Specimen Type: BLOOD Comment: Test Performed by: [id number] Meter #: [id number] Ordering Provider: SILVIA REDDY Report Released Date/Time: Aug 16, 2024 12:04 PM Reporting Lab: [facility] [address] Performing Lab: [facility] [address] GLUCOSE,BLOOD- poct (STL) 135 mg/dL H Aug 16, 2024 05:24 AM [facility] GLUCOSE,BLOOD-poct (STL) Specimen Type: BLOOD Comment: Test Performed by: [id number] Meter #: [id number] Ordering Provider: SILVIA REDDY Report Released Date/Time: Aug 16, 2024 05:38 AM Reporting Lab: [facility] [address] Performing Lab: [facility] [address] GLUCOSE,BLOOD- poct (STL) 151 mg/dL H Aug 15, 2024 07:31 PM [facility] GLUCOSE,BLOOD-poct (STL) Specimen Type: BLOOD Comment: Test Performed by: [id number] Meter #: [id number] Ordering Provider: SILVIA REDDY Report Released Date/Time: Aug 15, 2024 08:07 PM Reporting Lab: [facility] [address] Performing Lab: [facility] [address] GLUCOSE,BLOOD- poct (STL) 173 mg/dL H Aug 15, 2024 04:18 PM [facility] GLUCOSE,BLOOD-poct (STL) Specimen Type: BLOOD Comment: Test Performed by: [id number] Meter #: [id number] Ordering Provider: SILVIA REDDY Report Released Date/Time: Aug 15, 2024 04:59 PM Reporting Lab: [facility] [address] Performing Lab: [facility] [address] GLUCOSE,BLOOD- poct (STL) 136 mg/dL H Aug 15, 2024 04:16 PM [facility] GLUCOSE,BLOOD-poct (STL) Specimen Type: BLOOD Comment: Test Performed by: [id number] Meter #: [id number] Ordering Provider: SILVIA REDDY Report Released Date/Time: Aug 15, 2024 04:59 PM Reporting Lab: [facility] [address] Performing Lab: [facility] [address] GLUCOSE,BLOOD- poct (STL) 194 mg/dL H 72-Aug 15, 2024 11:39 AM [facility] GLUCOSE,BLOOD-poct (STL) Specimen Type: BLOOD Comment: Test Performed by: [id number] Meter #: [id number] Ordering Provider: SILVIA REDDY Report Released Date/Time: Aug 15, 2024 12:00 PM Reporting Lab: [facility] [address] Performing Lab: [facility] [address] GLUCOSE,BLOOD- poct (STL) 127 mg/dL H -Aug 15, 2024 05:07 AM [facility] GLUCOSE,BLOOD-poct (STL) Specimen Type: BLOOD Comment: Test Performed by: [id number] Meter #: [id number] Ordering Provider: SILVIA REDDY Report Released Date/Time: Aug 15, 2024 06:14 AM Reporting Lab: [facility] [address] Performing Lab: [facility] [address] GLUCOSE,BLOOD- poct (STL) 151 mg/dL H 72-99 Aug 14, 2024 04:22 PM [facility] GLUCOSE,BLOOD-poct (STL) Specimen Type: BLOOD Comment: Test Performed by: [id number] Meter #: [id number] Ordering Provider: SILVIA REDDY Report Released Date/Time: Aug 14, 2024 04:52 PM Reporting Lab: [facility] [place] [address] Performing Lab: [facility] [address] GLUCOSE,BLOOD- poct (STL) 129 mg/dL H 72-99 Aug 14, 2024 11:21 AM [facility] GLUCOSE,BLOOD-poct (STL) Specimen Type: BLOOD Comment: Test Performed by: [id number] Meter #: [id number] Ordering Provider: SILVIA REDDY Report Released Date/Time: Aug 14, 2024 11:37 AM Reporting Lab: [facility] [address] Performing Lab: [facility] [address] GLUCOSE,BLOOD- poct (STL) 135 mg/dL H 72-Aug 14, 2024 06:59 AM [facility] QUANTIFERON-TB,4 TUBE Specimen Type: BLOOD [...] For additional information, please refer to http://education. [employer]. Sift/faq/EJH821 (This link is being provided for information/ educational purposes only.) Test Performed by [employer] [place], [employer], [address] [place] [id number] Tommie Garcia M.D., Ph.D., Director of Laboratories , [facility] [id number] Ordering Provider: SILVIA REDDY Report Released Date/Time: Aug 11, 2024 03:58 PM Reporting Lab: [facility] [address] [facility] [address] Performing Lab: [facility] [id number] [place] [address] .NIL - QUANTIFERON 0.04 [IU]/mL .MITOGEN-NIL 0.39 [IU]/mL .QUANTIFERON INDETERMINATE NEGATIVE .TB1-NIL <0.00 [IU]/mL .TB2-NIL <0.00 [IU]/mL Aug 14, 2024 06:59 AM [facility] B12 Specimen Type: SERUM No comment entered. Ordering Provider: SILVIA REDDY Report Released Date/Time: Aug 11, 2024 03:58 PM Reporting Lab: [facility] [address] Performing Lab: [facility] [address] B12 757 pg/mL 213-816 Aug 14, 2024 06:59 AM [facility] FOLATE (STL-MA) Specimen Type: SERUM No comment entered. Ordering Provider: SILVIA REDDY Report Released Date/Time: Aug 11, 2024 03:58 PM Reporting Lab: [facility] [address] Performing Lab: [facility] [address] FOLATE (STL-MA) 6.8 ng/mL L 7-20 Aug 14, 2024 06:59 AM [facility] MAGNESIUM Specimen Type: PLASMA Comment: No hemolysis noted. Ordering Provider: SILVIA REDDY Report Released Date/Time: Aug 11, 2024 03:58 PM Reporting Lab: [facility] [address] Performing Lab: [facility] [address] MAGNESIUM 1.9 mg/dL 1.6-2.6 Aug 14, 2024 06:59 AM [facility] VITAMIN D, 25-HYDROXY Specimen Type: SERUM No comment entered. Ordering Provider: SILVIA REDDY Report Released Date/Time: Aug 11, 2024 03:58 PM Reporting Lab: [facility] [address] Performing Lab: [facility] [address] VITAMIN D, 25-HYDROXY 8.9 ng/mL L 30-96 Aug 14, 2024 06:59 AM [facility] COMPREHENSIVE METABOLIC PANEL Specimen Type: PLASMA Comment: No hemolysis noted. Ordering Provider: SILVIA REDDY Report Released Date/Time: Aug 11, 2024 03:58 PM Reporting Lab: [facility] [address] Performing Lab: [facility] [address] CREATININE 0.75 mg/dL 0.70-1.30 UREA NITROGEN 13.6 [...] >60 Aug 14, 2024 06:59 AM [facility] CBC Specimen Type: BLOOD No comment entered. Ordering Provider: SILVIA REDDY Report Released Date/Time: Aug 11, 2024 03:58 PM Reporting Lab: [facility] [address] Performing Lab: [facility] [address] WBC 4.1 10*3/uL 3.6-11.2 RBC 3.20 10*6/uL [...] 0.00-0.20 Aug 14, 2024 05:08 AM [facility] GLUCOSE,BLOOD-poct (STL) Specimen Type: BLOOD Comment: Test Performed by: [id number] Meter #: [id number] Ordering Provider: SILVIA REDDY Report Released Date/Time: Aug 14, 2024 05:52 AM Reporting Lab: [facility] [id number] Performing Lab: [facility] [address] GLUCOSE,BLOOD- poct (STL) 135 mg/dL H 72-99 Aug 13, 2024 04:27 PM [facility] GLUCOSE,BLOOD-poct (STL) Specimen Type: BLOOD Comment: Test Performed by: [id number] Meter #: [id number] Ordering Provider: SILVIA REDDY Report Released Date/Time: Aug 13, 2024 04:41 PM Reporting Lab: [facility] [address] Performing Lab: [facility] [address] GLUCOSE,BLOOD- poct (STL) 181 mg/dL H 72-Aug 13, 2024 11:33 AM [facility] GLUCOSE,BLOOD-poct (STL) Specimen Type: BLOOD Comment: Test Performed by: [id number] Meter #: [id number] Ordering Provider: SILVIA REDDY Report Released Date/Time: Aug 13, 2024 03:55 PM Reporting Lab: [facility] [id number] Performing Lab: [facility] [place] [address] GLUCOSE,BLOOD- poct (STL) 140 mg/dL H -Aug 13, 2024 05:54 AM [facility] GLUCOSE,BLOOD-poct (STL) Specimen Type: BLOOD Comment: Test Performed by: [id number] Meter #: [id number] Ordering Provider: SILVIA REDYD Report Released Date/Time: Aug 13, 2024 06:20 AM Reporting Lab: [facility] [place] [id number] Performing Lab: [facility] [address] GLUCOSE,BLOOD- poct (STL) 112 mg/dL H -Aug 12, 2024 04:35 PM [facility] GLUCOSE,BLOOD-poct (STL) Specimen Type: BLOOD Comment: Test Performed by: [id number] Meter #: [id number] Ordering Provider: SILVIA REDDY Report Released Date/Time: Aug 12, 2024 04:47 PM Reporting Lab: [facility] [address] Performing Lab: [facility] [address] GLUCOSE,BLOOD- poct (STL) 128 mg/dL H 72-99 Aug 12, 2024 11:26 AM [facility] GLUCOSE,BLOOD-poct (STL) Specimen Type: BLOOD Comment: Test Performed by: [id number] Meter #: [id number] Ordering Provider: SILVIA REDDY Report Released Date/Time: Aug 12, 2024 11:45 AM Reporting Lab: [facility] [address] Performing Lab: [facility] [facility] [place] [id number] GLUCOSE,BLOOD- poct (STL) 188 mg/dL H -Aug 12, 2024 06:13 AM [facility] GLUCOSE,BLOOD-poct (STL) Specimen Type: BLOOD Comment: Test Performed by: [id number] Meter #: [id number] Ordering Provider: SILVIA REDDY Report Released Date/Time: Aug 12, 2024 06:25 AM Reporting Lab: [facility] [address] Performing Lab: [facility] [id number] GLUCOSE,BLOOD- poct (STL) 116 mg/dL H 72-99 Aug 11, 2024 04:10 PM [facility] GLUCOSE,BLOOD-poct (STL) Specimen Type: BLOOD Comment: Test Performed by: [id number] Meter #: [id number] Ordering Provider: SILVIA REDDY Report Released Date/Time: Aug 11, 2024 04:27 PM Reporting Lab: [facility] [address] [place] [address] Performing Lab: [facility] [address] [place] [id number] GLUCOSE,BLOOD- poct (STL) 184 mg/dL H 72-99 Aug 11, 2024 01:44 PM [facility] MRSA SURVL NARES DNA Specimen [...] 11, 2024 02:03 PM Reporting Lab: [address] [address] Performing Lab: [address] [address] MRSA SURVL NARES DNA Negative Negative Jul 20, 2024 11:18 AM [facility] APTT Specimen Type: PLASMA No comment entered. Ordering Provider: MANUEL BAIRD Report Released Date/Time: Jul 19, 2024 04:00 PM Reporting Lab: [facility] [address] [place] [id number] Performing Lab: [address] [address] APTT 32.1 s 26.7-39.9 Jul 20, 2024 11:18 AM [facility] PT/INR NEW ([facility] Specimen Type: PLASMA No comment entered. Ordering Provider: MANUEL BAIRD Report Released Date/Time: Jul 19, 2024 04:00 PM Reporting Lab: [address] [address] Performing Lab: [address] [id number] PROTIME 14.4 s H 9.4-12.5 INR VALUE 1.3 {INR} Jul 20, 2024 11:18 AM [facility] CBC Specimen Type: BLOOD No comment entered. Ordering Provider: MANUEL BAIRD Report Released Date/Time: Jul 19, 2024 04:00 PM Reporting Lab: [facility] [address] [facility] [address] Performing Lab: [address] [address] WBC 4.7 10*3/uL 3.6-11.2 RBC 4.86 10*6/uL [...] 1.6 1.0-7.0 Jul 17, 2024 08:02 AM [facility] BASIC METABOLIC PANEL Specimen Type: PLASMA Comment: No hemolysis noted. Ordering Provider: MARY SERNA Report Released Date/Time: Jun 07, 2024 01:43 PM Reporting Lab: [facility] [address] [place] [phone] Performing Lab: [address] [address] CREATININE 0.85 mg/dL 0.7-1.3 UREA NITROGEN 15.2 [...] and tobacco- related health factors from the [facility] facility where the Encounter took place. Current Smoking Status This section includes the most current smoking, or tobacco-related health factor, from the [facility] facility where the Encounter took place. Date/Time Current Smoking Status Comment Facil ity Aug 11, 2016 10:34 AM QUIT TOBACCO >7 YEARS AGO [facility] Tobacco Use History This section includes a history of the smoking, or tobacco-related health factors, that were collected on or before the date of the Encounter. The data comes from the [facility] facility where the Encounter took place. Date/Time [...]
--- OUTSIDE RECORDS SUMMARY | 2024-11-17 04:12 | XMS_ITS ---
[place] DAILY HOSPITALIZATION DATA [facility] Encounter Summary Created on: November 16, 2024 CHET WALKER : 1950 Sex: Male Author Name [facility] [facility] [place] Address [address] [place] [address] Care Team Providers Care Upper Marker Name Role Phone MANUEL BAIRD Primary Care [...] PART A Apr 08, 2017 PART A [id number] ASHLEY WALKER PATIENT Selected Encounter This section includes the information on record at [place] for the Encounter. Date/Time Encounter Type Encounter Description Reason Pro vider Source Aug 15, 2024 04:04 PM Inpatient Visit DAILY HOSPITALIZATION DATA MARTHA JONES Nav Encounter Template Text not used by [place] [...] 20 appointments. The data comes from all [facility]. Appointment Date/Time Appointment Type Appointme nt Facility Name Aug 24, 2024 10:00 AM AMBULATORY - MEDICINE [facility] Aug 24, 2024 10:30 AM AMBULATORY - MEDICINE [facility] Aug 30, 2024 09:30 AM AMBULATORY - MEDICINE [facility] Aug 31, 2024 01:00 PM AMBULATORY - SURGERY [facility] Sep 21, 2024 01:30 PM AMBULATORY - MEDICINE [facility] Sep 22, 2024 11:00 AM [facility]INE [facility] Sep 29, 2024 12:30 PM [facility]BULATORY - MEDICINE [facility] Oct 02, 2024 09:30 AM AMBULATORY - MEDICINE [facility] Nov 20, 2024 10:30 AM AMBULATORY - SURGERY . [facility] Nov 21, 2024 10:00 AM AMBULATORY - NONE [facility] Dec 11, 2024 10:30 AM AMBULATORY - MEDICINE [facility] Active, Pending, and Scheduled Orders This section includes a listing of several types of active, pending, and scheduled orders, including clinic medications orders, diagnostic test orders, procedure orders and consult orders; where the start date of the order is 45 days before the date of the Encounter or 45 days after the date of theEncounter. The data comes from all [facility]. Test Date/Time Test Type Test Details Facility Name Aug 02, 2024 12:00 AM Laboratory - Chemistry Order CBC BLOOD STAT SP [facility] Aug 02, 2024 12:00 AM Laboratory - Chemistry Order COMPREHENSIVE METABOLIC PANEL GREEN LI/HEP BLD/PLAS PLASMA SP [facility] Aug 17, 2024 03:47 PM Consult Order [facility] Cons Bedside [facility] Lab Results: +/- 30 days of [...] Comment Aug 23, 2024 08:21 AM [facility] MAGNESIUM Specimen Type: PLASMA No comment entered. Ordering Provider: SILVIA REDDY Report Released Date/Time: Aug 22, 2024 11:26 AM Reporting Lab: [facility] [address] Performing Lab: [facility] [address] MAGNESIUM 1.8 mg/dL 1.6-2.6 Aug 23, 2024 08:21 AM [facility] CBC Specimen Type: BLOOD No comment entered. Ordering Provider: SILVIA REDDY Report Released Date/Time: Aug 22, 2024 11:19 AM Reporting Lab: [facility] [address] Performing Lab: [facility] [address] WBC 4.0 10*3/uL 3.6-11.2 RBC 3.65 10*6/uL [...] 0.00-0.20 Aug 23, 2024 05:12 AM [facility] GLUCOSE,BLOOD-poct (STL) Specimen Type: BLOOD Comment: Test Performed by: [id number] Meter #: [id number] Ordering Provider: SILVIA REDDY Report Released Date/Time: Aug 23, 2024 05:23 AM Reporting Lab: [facility] [address] Performing Lab: [facility] #[facility] [address] GLUCOSE,BLOOD- poct (STL) 99 mg/dL 72-99 Aug 23, 2024 02:45 AM [facility] OCCULT BLOOD FIT X1 SCREEN Specimen Type: FECES No comment entered. Ordering Provider: SILVIA REDDY Report Released Date/Time: Aug 22, 2024 11:23 AM Reporting Lab: [address] [address] Performing Lab: [address] [address] OCCULT BLOOD (FIT) #1 OF 1 Negative Negative Aug 22, 2024 07:30 PM [facility] OCCULT BLOOD FIT X1 SCREEN Specimen Type: FECES No comment entered. Ordering Provider: SILVIA REDDY Report Released Date/Time: Aug 22, 2024 11:23 AM Reporting Lab: [address] [address] Performing Lab: [place] [address] [facility] [address] OCCULT BLOOD (FIT) #1 OF 1 Negative Negative Aug 22, 2024 06:15 PM [facility] OCCULT BLOOD FIT X1 SCREEN Specimen Type: FECES No comment entered. Ordering Provider: SILVIA REDDY Report Released Date/Time: Aug 22, 2024 11:23 AM Reporting Lab: [address] [address] Performing Lab: [facility] [address] [facility] [address] OCCULT BLOOD (FIT) #1 OF 1 Negative Negative Aug 22, 2024 04:24 PM [facility] GLUCOSE,BLOOD-poct (STL) Specimen Type: BLOOD Comment: Test Performed by: [id number] Meter #: [id number] Ordering Provider: SILVIA REDDY Report Released Date/Time: Aug 22, 2024 04:36 PM Reporting Lab: [facility] [address] Performing Lab: [facility] #[facility] [address] GLUCOSE,BLOOD- poct (STL) 176 mg/dL H -Aug 22, 2024 04:23 PM [facility] GLUCOSE,BLOOD-poct (STL) Specimen Type: BLOOD Comment: Test Performed by: [id number] Meter #: [id number] Ordering Provider: SILVIA REDDY Report Released Date/Time: Aug 22, 2024 04:36 PM Reporting Lab: [facility] [address] Performing Lab: [facility] [address] GLUCOSE,BLOOD- poct (STL) 221 mg/dL H 72-Aug 22, 2024 11:15 AM [facility] GLUCOSE,BLOOD-poct (STL) Specimen Type: BLOOD Comment: Test Performed by: [id number] Meter #: [id number] Ordering Provider: SILVIA REDDY Report Released Date/Time: Aug 22, 2024 11:27 AM Reporting Lab: [facility] [address] Performing Lab: [facility] [address] GLUCOSE,BLOOD- poct (STL) 140 mg/dL H 72-99 Aug 22, 2024 08:[address] [facility] FERRITIN Specimen Type: SERUM No comment entered. Ordering Provider: JUDIT PERKINS Report Released Date/Time: Aug 18, 2024 11:01 AM Reporting Lab: [facility] [address] [facility] [address] Performing Lab: [facility] [address] [facility] [address] FERRITIN 79.50 ng/mL 22-275 Aug 22, 2024 08:03 AM [facility] IRON/TIBC PROFILE Specimen Type: SERUM No comment entered. Ordering Provider: JUDIT PERKINS Report Released Date/Time: Aug 18, 2024 11:01 AM Reporting Lab: [address] [address] Performing Lab: [address] [address] TIBC 283 ug/dL 250-450 TRANSFERRIN 226 mg/dL 163-344 IRON SATURATION 7 L 20-50 IRON 19 ug/dL L 65-175 Aug 22, 2024 08:03 AM [facility] B12 Specimen Type: SERUM No comment entered. Ordering Provider: JUDIT PERKINS Report Released Date/Time: Aug 18, 2024 11:01 AM Reporting Lab: [facility] [address] Performing Lab: [facility] #[address] [facility] [address] B12 631 pg/mL 213-816 Aug 22, 2024 08:03 AM [facility] COMPREHENSIVE METABOLIC PANEL Specimen Type: PLASMA Comment: No hemolysis noted. Ordering Provider: SILVIA REDDY Report Released Date/Time: Aug 17, 2024 01:18 PM Reporting Lab: [facility] [address] [facility] [address] Performing Lab: [address] [address] CREATININE 0.80 mg/dL 0.7-1.3 UREA NITROGEN 9.7 [...] >60 Aug 22, 2024 08:03 AM [facility] CBC Specimen Type: BLOOD No comment entered. Ordering Provider: SILVIA REDDY Report Released Date/Time: Aug 17, 2024 01:18 PM Reporting Lab: [facility] [address] Performing Lab: [facility] [address] WBC 3.5 10*3/uL L 3.6-11.2 RBC 3.23 [...] 0 Aug 22, 2024 05:03 AM [facility] GLUCOSE,BLOOD-poct (STL) Specimen Type: BLOOD Comment: Test Performed by: [id number] Meter #: [id number] Ordering Provider: SILVIA REDDY Report Released Date/Time: Aug 22, 2024 06:17 AM Reporting Lab: [facility] #[facility] [address] Performing Lab: [facility] [place] [address] GLUCOSE,BLOOD- poct (STL) 170 mg/dL H 72-Aug 21, 2024 04:32 PM [facility] GLUCOSE,BLOOD-poct (STL) Specimen Type: BLOOD Comment: Test Performed by: [id number] Meter #: [id number] Ordering Provider: SILVIA REDDY Report Released Date/Time: Aug 21, 2024 04:49 PM Reporting Lab: [facility] #[address] [facility] [address] Performing Lab: [facility] [address] GLUCOSE,BLOOD- poct (STL) 169 mg/dL H -99 Aug 21, 2024 11:53 AM [facility] GLUCOSE,BLOOD-poct (STL) Specimen Type: BLOOD Comment: Test Performed by: [id number] Meter #: [id number] Ordering Provider: SILVIA REDDY Report Released Date/Time: Aug 21, 2024 12:11 PM Reporting Lab: [facility] #[address] [facility] [address] Performing Lab: [facility] [address] GLUCOSE,BLOOD- poct (STL) 149 mg/dL H 72-99 Aug 21, 2024 05:10 AM [facility] GLUCOSE,BLOOD-poct (STL) Specimen Type: BLOOD Comment: Test Performed by: [id number] Meter #: [id number] Ordering Provider: SILVIA REDDY Report Released Date/Time: Aug 21, 2024 05:27 AM Reporting Lab: [facility] #[address] [place] [address] Performing Lab: [facility] #[address] [place] [phone] GLUCOSE,BLOOD- poct (STL) 118 mg/dL H 72-99 Aug 20, 2024 04:38 PM [facility] GLUCOSE,BLOOD-poct (STL) Specimen Type: BLOOD Comment: Test Performed by: [id number] Meter #: [id number] Ordering Provider: SILVIA REDDY Report Released Date/Time: Aug 21, 2024 01:55 AM Reporting Lab: [facility] #[address] [place] [address] Performing Lab: [facility] #[address] [place] [address] GLUCOSE,BLOOD- poct (STL) 169 mg/dL H 72-99 Aug 20, 2024 04:36 PM [facility] GLUCOSE,BLOOD-poct (STL) Specimen Type: BLOOD Comment: Test Performed by: [id number] Meter #: [id number] Ordering Provider: SILVIA REDDY Report Released Date/Time: Aug 21, 2024 01:55 AM Reporting Lab: [facility] [place] [address] Performing Lab: [facility] [place] [address] GLUCOSE,BLOOD- poct (STL) 395 mg/dL H 72-99 Aug 20, 2024 11:45 AM [facility] GLUCOSE,BLOOD-poct (STL) Specimen Type: BLOOD Comment: Test Performed by: [id number] Meter #: [id number] Ordering Provider: SILVIA REDDY Report Released Date/Time: Aug 20, 2024 11:56 AM Reporting Lab: [facility] [address] Performing Lab: [facility] #[address] [facility] [address] GLUCOSE,BLOOD- poct (STL) 169 mg/dL H 72-Aug 20, 2024 05:06 AM [facility] GLUCOSE,BLOOD-poct (STL) Specimen Type: BLOOD Comment: Test Performed by: [id number] Meter #: [id number] Ordering Provider: SILVIA REDDY Report Released Date/Time: Aug 20, 2024 06:05 AM Reporting Lab: [facility] #[address] [facility] [address] Performing Lab: [facility] #[address] [facility] [address] GLUCOSE,BLOOD- poct (STL) 115 mg/dL H 72-Aug 19, 2024 04:23 PM [facility] GLUCOSE,BLOOD-poct (STL) Specimen Type: BLOOD Comment: Test Performed by: [id number] Meter #: [id number] Ordering Provider: SILVIA REDDY Report Released Date/Time: Aug 19, 2024 05:54 PM Reporting Lab: [facility] #[address] [facility] [address] Performing Lab: [facility] #[address] [facility] [address] GLUCOSE,BLOOD- poct (STL) 137 mg/dL H 72-99 Aug 19, 2024 11:28 AM [facility] GLUCOSE,BLOOD-poct (STL) Specimen Type: BLOOD Comment: Test Performed by: [id number] Meter #: [id number] Ordering Provider: SILVIA REDDY Report Released Date/Time: Aug 19, 2024 11:51 AM Reporting Lab: [facility] #[facility] [address] Performing Lab: [facility] #[address] [facility] [address] GLUCOSE,BLOOD- poct (STL) 190 mg/dL H 72-99 Aug 19, 2024 05:21 AM [facility] GLUCOSE,BLOOD-poct (STL) Specimen Type: BLOOD Comment: Test Performed by: [id number] Meter #: [id number] Ordering Provider: SILVIA REDDY Report Released Date/Time: Aug 19, 2024 05:56 AM Reporting Lab: [facility] #[facility] [address] Performing Lab: [facility] #[address] [facility] [address] GLUCOSE,BLOOD- poct (STL) 130 mg/dL H Aug 18, 2024 04:49 PM [facility] GLUCOSE,BLOOD-poct (STL) Specimen Type: BLOOD Comment: Test Performed by: [id number] Meter #: [id number] Ordering Provider: SILVIA REDDY Report Released Date/Time: Aug 18, 2024 05:01 PM Reporting Lab: [facility] [address] Performing Lab: [facility] #[address] [facility] [address] GLUCOSE,BLOOD- poct (STL) 129 mg/dL H Aug 18, 2024 11:23 AM [facility] GLUCOSE,BLOOD-poct (STL) Specimen Type: BLOOD Comment: Test Performed by: [id number] Meter #: [id number] Ordering Provider: SILVIA REDDY Report Released Date/Time: Aug 18, 2024 11:41 AM Reporting Lab: [facility] #[facility] [address] Performing Lab: [facility] [address] GLUCOSE,BLOOD- poct (STL) 180 mg/dL H Aug 18, 2024 05:08 AM [facility] GLUCOSE,BLOOD-poct (STL) Specimen Type: BLOOD Comment: Test Performed by: [id number] Meter #: [id number] Ordering Provider: SILVIA REDDY Report Released Date/Time: Aug 18, 2024 05:31 AM Reporting Lab: [facility] [address] Performing Lab: [facility] #[address] [facility] [address] GLUCOSE,BLOOD- poct (STL) 127 mg/dL H 72-Aug 17, 2024 07:32 PM [facility] GLUCOSE,BLOOD-poct (STL) Specimen Type: BLOOD Comment: Test Performed by: [id number] Meter #: [id number] Ordering Provider: SILVIA REDDY Report Released Date/Time: Aug 17, 2024 07:59 PM Reporting Lab: [facility] #[facility] [address] Performing Lab: [facility] #[address] [place] [address] GLUCOSE,BLOOD- poct (STL) 154 mg/dL H -Aug 17, 2024 04:24 PM [facility] GLUCOSE,BLOOD-poct (STL) Specimen Type: BLOOD Comment: Test Performed by: [id number] Meter #: [id number] Ordering Provider: SILVIA REDDY Report Released Date/Time: Aug 17, 2024 04:35 PM Reporting Lab: [facility] #1 [place] [phone] Performing Lab: [facility] #[address] [place] [address] GLUCOSE,BLOOD- poct (STL) 178 mg/dL H 72-Aug 17, 2024 05:09 AM [facility] GLUCOSE,BLOOD-poct (STL) Specimen Type: BLOOD Comment: Test Performed by: [id number] Meter #: [id number] Ordering Provider: SILVIA REDDY Report Released Date/Time: Aug 17, 2024 05:54 AM Reporting Lab: [facility] [address] Performing Lab: [facility] #[facility] [address] GLUCOSE,BLOOD- poct (STL) 124 mg/dL H 72-Aug 16, 2024 07:40 PM [facility] GLUCOSE,BLOOD-poct (STL) Specimen Type: BLOOD Comment: Test Performed by: [id number] Meter #: [id number] Ordering Provider: SILVIA REDDY Report Released Date/Time: Aug 16, 2024 08:28 PM Reporting Lab: [facility] #[facility] [address] Performing Lab: [facility] #[facility] [address] GLUCOSE,BLOOD- poct (STL) 144 mg/dL H 72-Aug 16, 2024 04:19 PM [facility] GLUCOSE,BLOOD-poct (STL) Specimen Type: BLOOD Comment: Test Performed by: [id number] Meter #: [id number] Ordering Provider: SILVIA REDDY Report Released Date/Time: Aug 16, 2024 04:45 PM Reporting Lab: [facility] #[facility] [address] Performing Lab: [facility] #[facility] [address] GLUCOSE,BLOOD- poct (STL) 138 mg/dL H 72-Aug 16, 2024 11:52 AM [facility] GLUCOSE,BLOOD-poct (STL) Specimen Type: BLOOD Comment: Test Performed by: [id number] Meter #: [id number] Ordering Provider: SILVIA REDDY Report Released Date/Time: Aug 16, 2024 12:04 PM Reporting Lab: [facility] [address] Performing Lab: [facility] #[facility] [address] GLUCOSE,BLOOD- poct (STL) 135 mg/dL H 72-99 Aug 16, 2024 05:24 AM [facility] GLUCOSE,BLOOD-poct (STL) Specimen Type: BLOOD Comment: Test Performed by: [id number] Meter #: [id number] Ordering Provider: SILVIA REDDY Report Released Date/Time: Aug 16, 2024 05:38 AM Reporting Lab: [facility] [address] Performing Lab: [facility] [address] GLUCOSE,BLOOD- poct (STL) 151 mg/dL H Aug 15, 2024 07:31 PM [facility] GLUCOSE,BLOOD-poct (STL) Specimen Type: BLOOD Comment: Test Performed by: [id number] Meter #: [id number] Ordering Provider: SILVIA REDDY Report Released Date/Time: Aug 15, 2024 08:07 PM Reporting Lab: [facility] [address] Performing Lab: [facility] #[facility] [address] GLUCOSE,BLOOD- poct (STL) 173 mg/dL H Aug 15, 2024 04:18 PM [facility] GLUCOSE,BLOOD-poct (STL) Specimen Type: BLOOD Comment: Test Performed by: [id number] Meter #: [id number] Ordering Provider: SILVIA REDDY Report Released Date/Time: Aug 15, 2024 04:59 PM Reporting Lab: [facility] [address] Performing Lab: [facility] #[facility] [address] GLUCOSE,BLOOD- poct (STL) 136 mg/dL H Aug 15, 2024 04:16 PM [facility] GLUCOSE,BLOOD-poct (STL) Specimen Type: BLOOD Comment: Test Performed by: [id number] Meter #: [id number] Ordering Provider: SILVIA REDDY Report Released Date/Time: Aug 15, 2024 04:59 PM Reporting Lab: [facility] #[address] [place] [address] Performing Lab: [facility] [address] GLUCOSE,BLOOD- poct (STL) 194 mg/dL H 72-Aug 15, 2024 11:39 AM [facility] GLUCOSE,BLOOD-poct (STL) Specimen Type: BLOOD Comment: Test Performed by: [id number] Meter #: [id number] Ordering Provider: SILVIA REDDY Report Released Date/Time: Aug 15, 2024 12:00 PM Reporting Lab: [facility] #[address] [place] [address] Performing Lab: [facility] [place] [address] GLUCOSE,BLOOD- poct (STL) 127 mg/dL H 72-Aug 15, 2024 05:07 AM [facility] GLUCOSE,BLOOD-poct (STL) Specimen Type: BLOOD Comment: Test Performed by: [id number] Meter #: [id number] Ordering Provider: SILVIA REDDY Report Released Date/Time: Aug 15, 2024 06:14 AM Reporting Lab: [facility] #[address] [place] [address] Performing Lab: [facility] [place] [address] GLUCOSE,BLOOD- poct (STL) 151 mg/dL H 72-Aug 14, 2024 04:22 PM [facility] GLUCOSE,BLOOD-poct (STL) Specimen Type: BLOOD Comment: Test Performed by: [id number] Meter #: [id number] Ordering Provider: SILVIA REDDY Report Released Date/Time: Aug 14, 2024 04:52 PM Reporting Lab: [facility] [address] Performing Lab: [facility] [address] GLUCOSE,BLOOD- poct (STL) 129 mg/dL H 72-99 Aug 14, 2024 11:21 AM [facility] GLUCOSE,BLOOD-poct (STL) Specimen Type: BLOOD Comment: Test Performed by: [id number] Meter #: [id number] Ordering Provider: SILVIA REDDY Report Released Date/Time: Aug 14, 2024 11:37 AM Reporting Lab: [facility] [address] Performing Lab: [facility] [address] GLUCOSE,BLOOD- poct (STL) 135 mg/dL H 72-Aug 14, 2024 06:59 AM [facility] QUANTIFERON-TB,4 TUBE Specimen Type: BLOOD Comment: [...] For additional information, please refer to http://education. [employer]/faq/MRR907 (This link is being provided for information/ educational purposes only.) Test Performed by [employer] [place], [facility], [address] [place] [address] Tommie Garica M.D., Ph.D., Director of Laboratories , [facility] [id number] Ordering Provider: SILVIA REDDY Report Released Date/Time: Aug 11, 2024 03:58 PM Reporting Lab: [facility] [address] [facility] [address] Performing Lab: [facility] [id number] [place] [address] .NIL - QUANTIFERON 0.04 [IU]/mL .MITOGEN-NIL 0.39 [IU]/mL .QUANTIFERON INDETERMINATE NEGATIVE .TB1-NIL <0.00 [IU]/mL .TB2-NIL <0.00 [IU]/mL Aug 14, 2024 06:59 AM [facility] MAGNESIUM Specimen Type: PLASMA Comment: No hemolysis noted. Ordering Provider: SILVIA REDDY Report Released Date/Time: Aug 11, 2024 03:58 PM Reporting Lab: [facility] [address] Performing Lab: [facility] [address] MAGNESIUM 1.9 mg/dL 1.6-2.6 Aug 14, 2024 06:59 AM [facility] B12 Specimen Type: SERUM No comment entered. Ordering Provider: SILVIA REDDY Report Released Date/Time: Aug 11, 2024 03:58 PM Reporting Lab: [facility] [address] Performing Lab: [facility] [address] B12 757 pg/mL 213-816 Aug 14, 2024 06:59 AM [facility] FOLATE ([facility]-MA) Specimen Type: SERUM No comment entered. Ordering Provider: SILVIA REDDY Report Released Date/Time: Aug 11, 2024 03:58 PM Reporting Lab: [facility] [address] Performing Lab: [facility] [address] FOLATE (STL-MA) 6.8 ng/mL L 7-20 Aug 14, 2024 06:59 AM [facility] VITAMIN D, 25-HYDROXY Specimen Type: SERUM No comment entered. Ordering Provider: SILVIA REDDY Report Released Date/Time: Aug 11, 2024 03:58 PM Reporting Lab: [facility] [address] Performing Lab: [facility] [address] VITAMIN D, 25-HYDROXY 8.9 ng/mL L 30-96 Aug 14, 2024 06:59 AM [facility] CBC Specimen Type: BLOOD No comment entered. Ordering Provider: SILVIA REDDY Report Released Date/Time: Aug 11, 2024 03:58 PM Reporting Lab: [facility] [address] Performing Lab: [facility] [address] WBC 4.1 10*3/uL 3.6-11.2 RBC 3.20 10*6/uL [...] 0.00-0.20 Aug 14, 2024 06:59 AM [facility] COMPREHENSIVE METABOLIC PANEL Specimen Type: PLASMA Comment: No hemolysis noted. Ordering Provider: SILVIA REDDY Report Released Date/Time: Aug 11, 2024 03:58 PM Reporting Lab: [facility] [address] Performing Lab: [facility] [address] CREATININE 0.75 mg/dL 0.70-1.30 UREA NITROGEN 13.6 [...] >60 Aug 14, 2024 05:08 AM [facility] GLUCOSE,BLOOD-poct (STL) Specimen Type: BLOOD Comment: Test Performed by: [id number] Meter #: [id number] Ordering Provider: SILVIA REDDY Report Released Date/Time: Aug 14, 2024 05:52 AM Reporting Lab: [facility] #[address] [facility] [address] Performing Lab: [facility] [address] GLUCOSE,BLOOD- poct (STL) 135 mg/dL H 72-99 Aug 13, 2024 04:27 PM [facility] GLUCOSE,BLOOD-poct (STL) Specimen Type: BLOOD Comment: Test Performed by: [id number] Meter #: [id number] Ordering Provider: SILVIA REDDY Report Released Date/Time: Aug 13, 2024 04:41 PM Reporting Lab: [facility] [address] Performing Lab: [facility] [address] GLUCOSE,BLOOD- poct (STL) 181 mg/dL H -Aug 13, 2024 11:33 AM [facility] GLUCOSE,BLOOD-poct (STL) Specimen Type: BLOOD Comment: Test Performed by: [id number] Meter #: [id number] Ordering Provider: SILVIA REDDY Report Released Date/Time: Aug 13, 2024 03:55 PM Reporting Lab: [facility] [address] Performing Lab: [facility] [address] GLUCOSE,BLOOD- poct (STL) 140 mg/dL H -Aug 13, 2024 05:54 AM [facility] GLUCOSE,BLOOD-poct (STL) Specimen Type: BLOOD Comment: Test Performed by: [id number] Meter #: [id number] Ordering Provider: SILVIA REDDY Report Released Date/Time: Aug 13, 2024 06:20 AM Reporting Lab: [facility] [address] Performing Lab: [facility] [facility] [address] GLUCOSE,BLOOD- poct (STL) 112 mg/dL H Aug 12, 2024 04:35 PM [facility] GLUCOSE,BLOOD-poct (STL) Specimen Type: BLOOD Comment: Test Performed by: [id number] Meter #: [id number] Ordering Provider: SILVIA REDDY Report Released Date/Time: Aug 12, 2024 04:47 PM Reporting Lab: [facility] [address] Performing Lab: [facility] [facility] [address] GLUCOSE,BLOOD- poct (STL) 128 mg/dL H 72-99 Aug 12, 2024 11:26 AM [facility] GLUCOSE,BLOOD-poct (STL) Specimen Type: BLOOD Comment: Test Performed by: [id number] Meter #: [id number] Ordering Provider: SILVIA REDDY Report Released Date/Time: Aug 12, 2024 11:45 AM Reporting Lab: [facility] [address] Performing Lab: [facility] [address] [place] [address] GLUCOSE,BLOOD- poct (STL) 188 mg/dL H 72-Aug 12, 2024 06:13 AM [facility] GLUCOSE,BLOOD-poct (STL) Specimen Type: BLOOD Comment: Test Performed by: [id number] Meter #: [id number] Ordering Provider: SILVIA REDDY Report Released Date/Time: Aug 12, 2024 06:25 AM Reporting Lab: [facility] [facility] [address] Performing Lab: [facility] [facility] [address] GLUCOSE,BLOOD- poct (STL) 116 mg/dL H 72-99 Aug 11, 2024 04:10 PM [facility] GLUCOSE,BLOOD-poct (STL) Specimen Type: BLOOD Comment: Test Performed by: [id number] Meter #: [id number] Ordering Provider: SILVIA REDDY Report Released Date/Time: Aug 11, 2024 04:27 PM Reporting Lab: [facility] [address] [place] [address] Performing Lab: [facility] [address] GLUCOSE,BLOOD- poct (STL) 184 mg/dL H 72-99 Aug 11, 2024 01:44 PM [facility] MRSA SURVL NARES DNA Specimen Type: [...] Aug 11, 2024 02:03 PM Reporting Lab: [address] [address] Performing Lab: [address] [address] MRSA SURVL NARES DNA Negative Negative Jul 20, 2024 11:18 AM [facility] APTT Specimen Type: PLASMA No comment entered. Ordering Provider: MANUEL BAIRD Report Released Date/Time: Jul 19, 2024 04:00 PM Reporting Lab: [address] [address] Performing Lab: [address] [address] APTT 32.1 s 26.7-39.9 Jul 20, 2024 11:18 AM [facility] PT/INR NEW (L-TX) Specimen Type: PLASMA No comment entered. Ordering Provider: MANUEL BAIRD Report Released Date/Time: Jul 19, 2024 04:00 PM Reporting Lab: [address] [address] Performing Lab: [address] [address] PROTIME 14.4 s H 9.4-12.5 INR VALUE 1.3 {INR} Jul 20, 2024 11:18 AM [facility] CBC Specimen Type: BLOOD No comment entered. Ordering Provider: MANUEL BAIRD Report Released Date/Time: Jul 19, 2024 04:00 PM Reporting Lab: [facility] [address] [facility] [address] Performing Lab: [address] [address] WBC 4.7 10*3/uL 3.6-11.2 RBC 4.86 10*6/uL [...] 1.6 1.0-7.0 Jul 17, 2024 08:02 AM [facility] BASIC METABOLIC PANEL Specimen Type: PLASMA Comment: No hemolysis noted. Ordering Provider: MARY SERNA Report Released Date/Time: Jun 07, 2024 01:43 PM Reporting Lab: [address] [address] Performing Lab: [address] [address] CREATININE 0.85 mg/dL 0.7-1.3 UREA NITROGEN 15.2 [...] PM 97.8 68 122/76 18 96 0 [facility] Aug 15, 2024 03:23 PM 97.7 [facility] Aug 15, 2024 12:19 PM 0 [facility] Aug 15, 2024 10:00 AM 97.8 84 120/72 18 95 0 [facility] Aug 15, 2024 05:35 AM 98.1 80 115/67 20 95 [facility] Advance Directives: All historical and [...] ADVANCE DIRECTIVE DISCUSSION ERICK BARDALES [facility]
--- OUTSIDE RECORDS SUMMARY | 2024-11-17 04:12 | XMS_ITS ---
Author Name [facility] Organization [facility] Address [address] [place] [address] Care Team Providers Care Music Supervisor Name Role Phone MANUEL BAIRD Primary [...] PART A Apr 08, 2017 PART A [id number] ASHLEY WALKER PATIENT Selected Encounter This section includes the information on record at [place] for the Encounter. Date/Time Encounter Type Encounter Description Reason Provider Source Sep 01, 2024 11:43 AM Outpatient Encounter GENERAL INTERNAL MEDICINE YESSI JOHNSON Nav Encounter Template Text not used by [place] [...] comes from all [facility]. Appointment Date/Time Appointment Type Appointme nt Facility Name Sep 21, 2024 01:30 PM AMBULATORY - MEDICINE [facility] Sep 22, 2024 11:00 AM AMBULATORY - MEDICINE [facility] Sep 29, 2024 12:30 PM AMBULATORY - MEDICINE [facility] Oct 02, 2024 09:30 AM AMBULATORY - MEDICINE [facility] Nov 20, 2024 10:30 AM AMBULATORY - SURGERY [facility] Nov 21, 2024 10:00 AM AMBULATORY - NONE . [facility] Dec 11, 2024 10:30 AM AMBULATORY - MEDICINE [facility] Active, Pending, and Scheduled Orders This section [...] comes from all [facility]. Test Date/Time Test Type Test Details Facility Name Aug 02, 2024 12:00 AM Laboratory - Chemistry Order CBC BLOOD STAT SP [facility] Aug 02, 2024 12:00 AM Laboratory - Chemistry Order COMPREHENSIVE METABOLIC PANEL GREEN LI/HEP BLD/PLAS PLASMA SP [facility] Aug 17, 2024 03:47 PM Consult Order [facility] Cons Bedside [facility] Lab Results: +/- 30 days of the [...] Range Comment Aug 23, 2024 08:21 AM [facility] CBC Specimen Type: BLOOD No comment entered. Ordering Provider: SILVIA REDDY Report Released Date/Time: Aug 22, 2024 11:19 AM Reporting Lab: [facility] [address] Performing Lab: [facility] [address] WBC 4.0 10*3/uL 3.6-11.2 RBC 3.65 10*6/uL [...] 0.00-0.20 Aug 23, 2024 08:21 AM [facility] MAGNESIUM Specimen Type: PLASMA No comment entered. Ordering Provider: SILVIA REDDY Report Released Date/Time: Aug 22, 2024 11:26 AM Reporting Lab: [facility] [address] Performing Lab: [facility] [address] MAGNESIUM 1.8 mg/dL 1.6-2.6 Aug 23, 2024 05:12 AM [facility] GLUCOSE,BLOOD-poct (STL) Specimen Type: BLOOD Comment: Test Performed by: [id number] Meter #: [id number] Ordering Provider: SILVIA REDDY Report Released Date/Time: Aug 23, 2024 05:23 AM Reporting Lab: [facility] [address] Performing Lab: [facility] [address] GLUCOSE,BLOOD- poct (STL) 99 mg/dL 72-99 Aug 23, 2024 02:45 AM [facility] OCCULT BLOOD FIT X1 SCREEN Specimen Type: FECES No comment entered. Ordering Provider: SILVIA REDDY Report Released Date/Time: Aug 22, 2024 11:23 AM Reporting Lab: [address] [address] Performing Lab: [address] [address] OCCULT BLOOD (FIT) #1 OF 1 Negative Negative Aug 22, 2024 07:30 PM [facility] OCCULT BLOOD FIT X1 SCREEN Specimen Type: FECES No comment entered. Ordering Provider: SILVIA REDDY Report Released Date/Time: Aug 22, 2024 11:23 AM Reporting Lab: [facility] [address] [place] [address] Performing Lab: [address] [address] OCCULT BLOOD (FIT) #1 OF 1 Negative Negative Aug 22, 2024 06:15 PM [facility] OCCULT BLOOD FIT X1 SCREEN Specimen Type: FECES No comment entered. Ordering Provider: SILVIA REDDY Report Released Date/Time: Aug 22, 2024 11:23 AM Reporting Lab: [address] [address] Performing Lab: [address] [address] OCCULT BLOOD (FIT) #1 OF 1 Negative Negative Aug 22, 2024 04:24 PM [facility] GLUCOSE,BLOOD-poct (STL) Specimen Type: BLOOD Comment: Test Performed by: [id number] Meter #: [id number] Ordering Provider: SILVIA REDDY Report Released Date/Time: Aug 22, 2024 04:36 PM Reporting Lab: [facility] [place] [address] Performing Lab: [facility] [place] [address] GLUCOSE,BLOOD- poct (STL) 176 mg/dL H 72-Aug 22, 2024 04:23 PM [facility] GLUCOSE,BLOOD-poct (STL) Specimen Type: BLOOD Comment: Test Performed by: [id number] Meter #: [id number] Ordering Provider: SILVIA REDDY Report Released Date/Time: Aug 22, 2024 04:36 PM Reporting Lab: [facility] [place] [address] Performing Lab: [facility] [place] [address] GLUCOSE,BLOOD- poct (STL) 221 mg/dL H -Aug 22, 2024 11:15 AM [facility] GLUCOSE,BLOOD-poct (STL) Specimen Type: BLOOD Comment: Test Performed by: [id number] Meter #: [id number] Ordering Provider: SILVIA REDDY Report Released Date/Time: Aug 22, 2024 11:27 AM Reporting Lab: [facility] [place] [address] Performing Lab: [facility] [place] [address] GLUCOSE,BLOOD- poct (STL) 140 mg/dL H 72-99 Aug 22, 2024 08:03 AM [facility] CBC Specimen Type: BLOOD No comment entered. Ordering Provider: SILVIA REDDY Report Released Date/Time: Aug 17, 2024 01:18 PM Reporting Lab: [facility] [place] [address] Performing Lab: [facility] [address] WBC 3.5 10*3/uL L 3.6-11.2 RBC 3.23 [...] 0 Aug 22, 2024 08:03 AM [facility] COMPREHENSIVE METABOLIC PANEL Specimen Type: PLASMA Comment: No hemolysis noted. Ordering Provider: SILVIA REDDY Report Released Date/Time: Aug 17, 2024 01:18 PM Reporting Lab: [facility] [address] [facility] [address] Performing Lab: [facility] [address] [facility] [address] CREATININE 0.80 mg/dL 0.7-1.3 UREA NITROGEN 9.7 [...] 94.0 >60 Aug 22, 2024 08:03 AM [facility] FERRITIN Specimen Type: SERUM No comment entered. Ordering Provider: JUDIT PERKINS Report Released Date/Time: Aug 18, 2024 11:01 AM Reporting Lab: [facility] [address] [facility] [address] Performing Lab: [place] [id number] [facility] [address] FERRITIN 79.50 ng/mL 22-275 Aug 22, 2024 08:03 AM [facility] IRON/TIBC PROFILE Specimen Type: SERUM No comment entered. Ordering Provider: JUDIT PERKINS Report Released Date/Time: Aug 18, 2024 11:01 AM Reporting Lab: [facility] [address] [facility] [address] Performing Lab: [place] [id number] [facility] [address] TIBC 283 ug/dL 250-450 TRANSFERRIN 226 mg/dL 163-344 IRON SATURATION 7 L 20-50 IRON 19 ug/dL L 65-175 Aug 22, 2024 08:03 AM [facility] B12 Specimen Type: SERUM No comment entered. Ordering Provider: JUDIT PERKINS Report Released Date/Time: Aug 18, 2024 11:01 AM Reporting Lab: [facility] [address] Performing Lab: [facility] [address] B12 631 pg/mL 213-816 Aug 22, 2024 05:03 AM [facility] GLUCOSE,BLOOD-poct (STL) Specimen Type: BLOOD Comment: Test Performed by: [id number] Meter #: [id number] Ordering Provider: SILVIA REDDY Report Released Date/Time: Aug 22, 2024 06:17 AM Reporting Lab: [facility] [address] Performing Lab: [facility] [address] GLUCOSE,BLOOD- poct (STL) 170 mg/dL H -Aug 21, 2024 04:32 PM [facility] GLUCOSE,BLOOD-poct (STL) Specimen Type: BLOOD Comment: Test Performed by: [id number] Meter #: [id number] Ordering Provider: SILVIA REDDY Report Released Date/Time: Aug 21, 2024 04:49 PM Reporting Lab: [facility] [address] Performing Lab: [facility] [address] GLUCOSE,BLOOD- poct (STL) 169 mg/dL H Aug 21, 2024 11:53 AM [facility] GLUCOSE,BLOOD-poct (STL) Specimen Type: BLOOD Comment: Test Performed by: [id number] Meter #: [id number] Ordering Provider: SILVIA REDDY Report Released Date/Time: Aug 21, 2024 12:11 PM Reporting Lab: [facility] [address] Performing Lab: [facility] [address] GLUCOSE,BLOOD- poct (STL) 149 mg/dL H Aug 21, 2024 05:10 AM [facility] GLUCOSE,BLOOD-poct (STL) Specimen Type: BLOOD Comment: Test Performed by: [id number] Meter #: [id number] Ordering Provider: SILVIA REDDY Report Released Date/Time: Aug 21, 2024 05:27 AM Reporting Lab: [facility] [address] Performing Lab: [facility] [address] GLUCOSE,BLOOD- poct (STL) 118 mg/dL H 72-Aug 20, 2024 04:38 PM [facility] GLUCOSE,BLOOD-poct (STL) Specimen Type: BLOOD Comment: Test Performed by: [id number] Meter #: [id number] Ordering Provider: SILVIA REDDY Report Released Date/Time: Aug 21, 2024 01:55 AM Reporting Lab: [facility] [address] Performing Lab: [facility] [address] GLUCOSE,BLOOD- poct (STL) 169 mg/dL H -Aug 20, 2024 04:36 PM [facility] GLUCOSE,BLOOD-poct (STL) Specimen Type: BLOOD Comment: Test Performed by: [id number] Meter #: [id number] Ordering Provider: SILVIA REDDY Report Released Date/Time: Aug 21, 2024 01:55 AM Reporting Lab: [facility] [address] Performing Lab: [facility] [address] GLUCOSE,BLOOD- poct (STL) 395 mg/dL H -Aug 20, 2024 11:45 AM [facility] GLUCOSE,BLOOD-poct (STL) Specimen Type: BLOOD Comment: Test Performed by: [id number] Meter #: [id number] Ordering Provider: SILVIA REDDY Report Released Date/Time: Aug 20, 2024 11:56 AM Reporting Lab: [facility] [address] Performing Lab: [facility] [address] GLUCOSE,BLOOD- poct (STL) 169 mg/dL H 72-Aug 20, 2024 05:06 AM [facility] GLUCOSE,BLOOD-poct (STL) Specimen Type: BLOOD Comment: Test Performed by: [id number] Meter #: [id number] Ordering Provider: SILVIA REDDY Report Released Date/Time: Aug 20, 2024 06:05 AM Reporting Lab: [facility] [address] Performing Lab: [facility] [address] GLUCOSE,BLOOD- poct (STL) 115 mg/dL H -Aug 19, 2024 04:23 PM [facility] GLUCOSE,BLOOD-poct (STL) Specimen Type: BLOOD Comment: Test Performed by: [id number] Meter #: [id number] Ordering Provider: SILVIA REDDY Report Released Date/Time: Aug 19, 2024 05:54 PM Reporting Lab: [facility] [address] Performing Lab: [facility] [place] [address] GLUCOSE,BLOOD- poct (STL) 137 mg/dL H Aug 19, 2024 11:28 AM [facility] GLUCOSE,BLOOD-poct (STL) Specimen Type: BLOOD Comment: Test Performed by: [id number] Meter #: [id number] Ordering Provider: SILVIA REDDY Report Released Date/Time: Aug 19, 2024 11:51 AM Reporting Lab: [facility] [place] [phone] Performing Lab: [facility] [address] GLUCOSE,BLOOD- poct (STL) 190 mg/dL H Aug 19, 2024 05:21 AM [facility] GLUCOSE,BLOOD-poct (STL) Specimen Type: BLOOD Comment: Test Performed by: [id number] Meter #: [id number] Ordering Provider: SILVIA REDDY Report Released Date/Time: Aug 19, 2024 05:56 AM Reporting Lab: [facility] [address] Performing Lab: [facility] [address] GLUCOSE,BLOOD- poct (STL) 130 mg/dL H Aug 18, 2024 04:49 PM [facility] GLUCOSE,BLOOD-poct (STL) Specimen Type: BLOOD Comment: Test Performed by: [id number] Meter #: [id number] Ordering Provider: SILVIA REDDY Report Released Date/Time: Aug 18, 2024 05:01 PM Reporting Lab: [facility] [address] Performing Lab: [facility] [address] GLUCOSE,BLOOD- poct (STL) 129 mg/dL H Aug 18, 2024 11:23 AM [facility] GLUCOSE,BLOOD-poct (STL) Specimen Type: BLOOD Comment: Test Performed by: [id number] Meter #: [id number] Ordering Provider: SILVIA REDDY Report Released Date/Time: Aug 18, 2024 11:41 AM Reporting Lab: [facility] [address] Performing Lab: [facility] [address] GLUCOSE,BLOOD- poct (STL) 180 mg/dL H Aug 18, 2024 05:08 AM [facility] GLUCOSE,BLOOD-poct (STL) Specimen Type: BLOOD Comment: Test Performed by: [id number] Meter #: [id number] Ordering Provider: SILVIA REDDY Report Released Date/Time: Aug 18, 2024 05:31 AM Reporting Lab: [facility] [address] Performing Lab: [facility] [address] GLUCOSE,BLOOD- poct (STL) 127 mg/dL H 72-Aug 17, 2024 07:32 PM [facility] GLUCOSE,BLOOD-poct (STL) Specimen Type: BLOOD Comment: Test Performed by: [id number] Meter #: [id number] Ordering Provider: SILVIA REDDY Report Released Date/Time: Aug 17, 2024 07:59 PM Reporting Lab: [facility] [address] Performing Lab: [facility] [address] GLUCOSE,BLOOD- poct (STL) 154 mg/dL H -Aug 17, 2024 04:24 PM [facility] GLUCOSE,BLOOD-poct (STL) Specimen Type: BLOOD Comment: Test Performed by: [id number] Meter #: [id number] Ordering Provider: SILVIA REDDY Report Released Date/Time: Aug 17, 2024 04:35 PM Reporting Lab: [facility] [address] Performing Lab: [facility] [address] GLUCOSE,BLOOD- poct (STL) 178 mg/dL H -Aug 17, 2024 05:09 AM [facility] GLUCOSE,BLOOD-poct (STL) Specimen Type: BLOOD Comment: Test Performed by: [id number] Meter #: [id number] Ordering Provider: SILVIA REDDY Report Released Date/Time: Aug 17, 2024 05:54 AM Reporting Lab: [facility] [address] Performing Lab: [facility] [address] GLUCOSE,BLOOD- poct (STL) 124 mg/dL H -Aug 16, 2024 07:40 PM [facility] GLUCOSE,BLOOD-poct (STL) Specimen Type: BLOOD Comment: Test Performed by: [id number] Meter #: [id number] Ordering Provider: SILVIA REDDY Report Released Date/Time: Aug 16, 2024 08:28 PM Reporting Lab: [facility] [address] Performing Lab: [facility] [address] GLUCOSE,BLOOD- poct (STL) 144 mg/dL H Aug 16, 2024 04:19 PM [facility] GLUCOSE,BLOOD-poct (STL) Specimen Type: BLOOD Comment: Test Performed by: [id number] Meter #: [id number] Ordering Provider: SILVIA REDDY Report Released Date/Time: Aug 16, 2024 04:45 PM Reporting Lab: [facility] [address] Performing Lab: [facility] [address] GLUCOSE,BLOOD- poct (STL) 138 mg/dL H Aug 16, 2024 11:52 AM [facility] GLUCOSE,BLOOD-poct (STL) Specimen Type: BLOOD Comment: Test Performed by: [id number] Meter #: [id number] Ordering Provider: SILVIA REDDY Report Released Date/Time: Aug 16, 2024 12:04 PM Reporting Lab: [facility] [address] Performing Lab: [facility] [address] GLUCOSE,BLOOD- poct (STL) 135 mg/dL H Aug 16, 2024 05:24 AM [facility] GLUCOSE,BLOOD-poct (STL) Specimen Type: BLOOD Comment: Test Performed by: [id number] Meter #: [id number] Ordering Provider: SILVIA REDDY Report Released Date/Time: Aug 16, 2024 05:38 AM Reporting Lab: [facility] [address] Performing Lab: [facility] [address] GLUCOSE,BLOOD- poct (STL) 151 mg/dL H -Aug 15, 2024 07:31 PM [facility] GLUCOSE,BLOOD-poct (STL) Specimen Type: BLOOD Comment: Test Performed by: [id number] Meter #: [id number] Ordering Provider: SILVIA REDDY Report Released Date/Time: Aug 15, 2024 08:07 PM Reporting Lab: [facility] [address] Performing Lab: [facility] [address] GLUCOSE,BLOOD- poct (STL) 173 mg/dL H Aug 15, 2024 04:18 PM [facility] GLUCOSE,BLOOD-poct (STL) Specimen Type: BLOOD Comment: Test Performed by: [id number] Meter #: [id number] Ordering Provider: SILVIA REDDY Report Released Date/Time: Aug 15, 2024 04:59 PM Reporting Lab: [facility] [address] Performing Lab: [facility] [address] GLUCOSE,BLOOD- poct (STL) 136 mg/dL H Aug 15, 2024 04:16 PM [facility] GLUCOSE,BLOOD-poct (STL) Specimen Type: BLOOD Comment: Test Performed by: [id number] Meter #: [id number] Ordering Provider: SILVIA REDDY Report Released Date/Time: Aug 15, 2024 04:59 PM Reporting Lab: [facility] [address] Performing Lab: [facility] [address] GLUCOSE,BLOOD- poct (STL) 194 mg/dL H -Aug 15, 2024 11:39 AM [facility] GLUCOSE,BLOOD-poct (STL) Specimen Type: BLOOD Comment: Test Performed by: [id number] Meter #: [id number] Ordering Provider: SILVIA REDDY Report Released Date/Time: Aug 15, 2024 12:00 PM Reporting Lab: [facility] [address] Performing Lab: [facility] [address] GLUCOSE,BLOOD- poct (STL) 127 mg/dL H -Aug 15, 2024 05:07 AM [facility] GLUCOSE,BLOOD-poct (STL) Specimen Type: BLOOD Comment: Test Performed by: [id number] Meter #: [id number] Ordering Provider: SILVIA REDDY Report Released Date/Time: Aug 15, 2024 06:14 AM Reporting Lab: [facility] [address] Performing Lab: [facility] [address] GLUCOSE,BLOOD- poct (STL) 151 mg/dL H -Aug 14, 2024 04:22 PM [facility] GLUCOSE,BLOOD-poct (STL) Specimen Type: BLOOD Comment: Test Performed by: [id number] Meter #: [id number] Ordering Provider: SILVIA REDDY Report Released Date/Time: Aug 14, 2024 04:52 PM Reporting Lab: [facility] [address] Performing Lab: [facility] [address] GLUCOSE,BLOOD- poct (STL) 129 mg/dL H -Aug 14, 2024 11:21 AM [facility] GLUCOSE,BLOOD-poct (STL) Specimen Type: BLOOD Comment: Test Performed by: [id number] Meter #: [id number] Ordering Provider: SILVIA REDDY Report Released Date/Time: Aug 14, 2024 11:37 AM Reporting Lab: [facility] [address] Performing Lab: [facility] [address] GLUCOSE,BLOOD- poct (STL) 135 mg/dL H 72-99 Aug 14, 2024 06:59 AM [facility] QUANTIFERON-TB,4 TUBE Specimen Type: BLOOD Comment: [...] For additional information, please refer to [email or web address] [employer]/faq/SVV688 (This link is being provided for information/ educational purposes only.) Test Performed by [facility], [address] [place], [place] Tommie Garcia M.D., Ph.D., Director of Laboratories , [facility] [id number] Ordering Provider: SILVIA REDDY Report Released Date/Time: Aug 11, 2024 03:58 PM Reporting Lab: [facility] [address] [place] [address] Performing Lab: [facility] [address] [facility] .NIL - QUANTIFERON 0.04 [IU]/mL .MITOGEN-NIL 0.39 [IU]/mL .QUANTIFERON INDETERMINATE NEGATIVE .TB1-NIL <0.00 [IU]/mL .TB2-NIL <0.00 [IU]/mL Aug 14, 2024 06:59 AM [facility] MAGNESIUM Specimen Type: PLASMA Comment: No hemolysis noted. Ordering Provider: SILVIA REDDY Report Released Date/Time: Aug 11, 2024 03:58 PM Reporting Lab: [facility] [address] Performing Lab: [facility] [address] MAGNESIUM 1.9 mg/dL 1.6-2.6 Aug 14, 2024 06:59 AM [facility] VITAMIN D, 25-HYDROXY Specimen Type: SERUM No comment entered. Ordering Provider: SILVIA REDDY Report Released Date/Time: Aug 11, 2024 03:58 PM Reporting Lab: [facility] [address] Performing Lab: [facility] [address] VITAMIN D, 25-HYDROXY 8.9 ng/mL L 30-96 Aug 14, 2024 06:59 AM [facility] FOLATE (STL-MA) Specimen Type: SERUM No comment entered. Ordering Provider: SILVIA REDDY Report Released Date/Time: Aug 11, 2024 03:58 PM Reporting Lab: [facility] [address] Performing Lab: [facility] [address] FOLATE (STL-MA) 6.8 ng/mL L 7-20 Aug 14, 2024 06:59 AM [facility] B12 Specimen Type: SERUM No comment entered. Ordering Provider: SILVIA REDDY Report Released Date/Time: Aug 11, 2024 03:58 PM Reporting Lab: [facility] [address] Performing Lab: [facility] [place] [phone] B12 757 pg/mL 213-816 Aug 14, 2024 06:59 AM [facility] COMPREHENSIVE METABOLIC PANEL Specimen Type: PLASMA Comment: No hemolysis noted. Ordering Provider: SILVIA REDDY Report Released Date/Time: Aug 11, 2024 03:58 PM Reporting Lab: [facility] [address] Performing Lab: [facility] [address] CREATININE 0.75 mg/dL 0.70-1.30 UREA NITROGEN 13.6 [...] Aug 14, 2024 06:59 AM [facility] CBC Specimen Type: BLOOD No comment entered. Ordering Provider: SILVIA REDDY Report Released Date/Time: Aug 11, 2024 03:58 PM Reporting Lab: [facility] [address] Performing Lab: [facility] [place] [phone] WBC 4.1 10*3/uL 3.6-11.2 RBC 3.20 10*6/uL [...] 10*3/uL 0.00-0.20 Aug 14, 2024 05:08 AM [facility] GLUCOSE,BLOOD-poct (STL) Specimen Type: BLOOD Comment: Test Performed by: [id number] Meter #: [id number] Ordering Provider: SILVIA REDDY Report Released Date/Time: Aug 14, 2024 05:52 AM Reporting Lab: [facility] [place] [address] Performing Lab: [facility] [place] [address] GLUCOSE,BLOOD- poct (STL) 135 mg/dL H 72-99 Aug 13, 2024 04:27 PM [facility] GLUCOSE,BLOOD-poct (STL) Specimen Type: BLOOD Comment: Test Performed by: [id number] Meter #: [id number] Ordering Provider: SILVIA REDDY Report Released Date/Time: Aug 13, 2024 04:41 PM Reporting Lab: [facility] [place] [address] Performing Lab: [facility] [address] GLUCOSE,BLOOD- poct (STL) 181 mg/dL H -Aug 13, 2024 11:33 AM [facility] GLUCOSE,BLOOD-poct (STL) Specimen Type: BLOOD Comment: Test Performed by: [id number] Meter #: [id number] Ordering Provider: SILVIA REDDY Report Released Date/Time: Aug 13, 2024 03:55 PM Reporting Lab: [facility] [address] Performing Lab: [facility] [address] GLUCOSE,BLOOD- poct (STL) 140 mg/dL H Aug 13, 2024 05:54 AM [facility] GLUCOSE,BLOOD-poct (STL) Specimen Type: BLOOD Comment: Test Performed by: [id number] Meter #: [id number] Ordering Provider: SILVIA REDDY Report Released Date/Time: Aug 13, 2024 06:20 AM Reporting Lab: [facility] [address] Performing Lab: [facility] [address] GLUCOSE,BLOOD- poct (STL) 112 mg/dL H Aug 12, 2024 04:35 PM [facility] GLUCOSE,BLOOD-poct (STL) Specimen Type: BLOOD Comment: Test Performed by: [id number] Meter #: [id number] Ordering Provider: SILVIA REDDY Report Released Date/Time: Aug 12, 2024 04:47 PM Reporting Lab: [facility] [address] Performing Lab: [facility] [address] GLUCOSE,BLOOD- poct (STL) 128 mg/dL H Aug 12, 2024 11:26 AM [facility] GLUCOSE,BLOOD-poct (STL) Specimen Type: BLOOD Comment: Test Performed by: [id number] Meter #: [id number] Ordering Provider: SILVIA REDDY Report Released Date/Time: Aug 12, 2024 11:45 AM Reporting Lab: [facility] [address] Performing Lab: [facility] [address] GLUCOSE,BLOOD- poct (STL) 188 mg/dL H Aug 12, 2024 06:13 AM [facility] GLUCOSE,BLOOD-poct (STL) Specimen Type: BLOOD Comment: Test Performed by: [id number] Meter #: [id number] Ordering Provider: SILVIA REDDY Report Released Date/Time: Aug 12, 2024 06:25 AM Reporting Lab: [facility] [address] Performing Lab: [facility] [address] GLUCOSE,BLOOD- poct (STL) 116 mg/dL H Aug 11, 2024 04:10 PM [facility] GLUCOSE,BLOOD-poct (STL) Specimen Type: BLOOD Comment: Test Performed by: [id number] Meter #: [id number] Ordering Provider: SILVIA REDDY Report Released Date/Time: Aug 11, 2024 04:27 PM Reporting Lab: [facility] [address] Performing Lab: [facility] [address] GLUCOSE,BLOOD- poct (STL) 184 mg/dL H Aug 11, 2024 01:44 PM [facility] MRSA SURVL NARES DNA Specimen Type: [...] Aug 11, 2024 02:03 PM Reporting Lab: [facility] [address] [facility] [address] Performing Lab: [facility] [address] [facility] [address] MRSA SURVL NARES DNA Negative Negative Social [...] TOBACCO >7 YEARS AGO [facility] Tobacco Use History This section includes a history of the smoking, or tobacco-related health factors, that were collected on or before the date of the Encounter. The data comes from the [place] facility where the Encounter took place. Date/Time Smoking Status/Tobacco Use Comment F acility Sep 30, 2015 10:12 AM QUIT TOBACCO >7 YEARS AGO [facility] Oct 29, 2014 10:23 AM QUIT TOBACCO >7 YEARS AGO [facility] Dec 27, 2013 01:27 PM QUIT TOBACCO >7 YEARS AGO [facility] Feb 24, 2013 02:01 PM LIFETIME NON-USER OF TOBACCO [facility] Feb 11, 2009 10:09 AM QUIT TOBACCO >7 YEARS AGO [facility] Oct 06, 2006 09:30 AM CURRENT NON-TOBACC O USER-HX OF USE [facility] Oct 06, 2006 09:30 AM TOBACCO TERMINATION [facility] Advance Directives: All historical and current [...] Jan 19, 2017 ADVANCE DIRECTIVE DISCUSSION CATIAERICK A [facility] Encounter Notes: All associated encounter notes This section contains the clinical notes associated to the Encounter. Date/Time Encounter Note(s) Provider Source Sep 21, 2024 08:20 AM ADDENDUM: LOCAL TITLE: Addendum STANDARD TITLE: ADDENDUM DATE OF NOTE: SEP 21, 2024@08:20:54 ENTRY DATE: SEP 21, 2024@08:20:54 AUTHOR: YESSI JOHNSON EXP COSIGNER: URGENCY: STATUS: COMPLETED Discharge Disposition Date of discharge: Sep Disposition Discharge to Shelter Facility Records received for this EOC; sent to [facility] for scanning and shared securely with [facility] PCP Team. The below is brief synopsis of the discharge summary: - Patient was treated for bacterial enteritis r/t most recent surgery, received IV abx, and was DC to SNF for ongoing weakness. No f/u recommendations were noted aside from PT/OT at SNF. The following postacute care recommendations have been identified: as aboe Further postacute care/referrals may be indicated. PCP, please review entire DC summary for any further needs. Please place consults as warranted to avoid non- payment of follow-up services. Alerting PCP team to this note for continuity of care. EOC complete. Postacute care resulting from this episode of care is NOT COVERED under this Auth Number, and must be preauthorized via consult. PCP - please review full DC summary at the time of discharge, and place any consults deemed appropriate to avoid non-payment for recommended services. /shen/ YESSI JOHNSON REGISTERED NURSE Signed: 09/21/2024 08:26 Receipt Acknowledged By: 09/21/2024 08:49 /shen/ CHARITY HALL REGISTERED NURSE 09/22/2024 13:13 /shen/ manuel baird M.D. Staff Physician --- Original Document --- 09/08/24 [facility] SELF PRESENTING CARE COORD PLAN 657 STL: Emergency Notification Intake Date Presenting to the Facility: Sep Method of Contact: Notified from An Estuary worklist Notification ID: [id number] [facility] Referral #: [id number] Clinical Review [facility] Name: Hospital: [facility] Address: City: [place] State: [place] Zip Code: Phone : [facility] Point of Contact: Name: Phone: Chief complaint: NEAR SYNCOPE Primary Diagnosis: Disposition Admitted Route of Admission: Date of Admission: Sep Admitting Diagnosis: NEAR SYNCOPE [facility] Provider: Confirm Level of Care: Per notes received via RightFax, as of 09/10/24, patient was INPATIENT. He is hospitalized with weakness and near-syncope s/p recent lap meena. Patient had been advised to DC to acute rehab but refused and went home. Being treated for infectious gastroenteritis. Continues to have multiple episodes of diarrhea. Plan is to continue IV ABX, cardiac monitoring, fall precautions, and DC to rehab facility. Alerting PCP team to this note for continuity of care. Alerting [facility] Leyda Mixon and Sofy Hollis to this note for possible [facility] placement. /camryn JOHNSON REGISTERED NURSE Signed: 09/12/2024 09:41 Receipt Acknowledged By: 09/13/2024 10:00 /carmyn baird M.D. Staff Physician 09/14/2024 ADDENDUM STATUS: COMPLETED CONTINUED STAY REVIEW Contact Date: Sep Inpatient level of care required: Medicine Per faxed records received, patient was seen by podiatry for foot pain, for which they recommended PT, use of walker. Pt continues to have diarrhea. Monitoring K and replacing as needed. Patient will berta acute rehab postacutely. Alerting PCP and [facility] to anticipated need for postacute rehab. /camryn JOHNSON REGISTERED NURSE Signed: 09/14/2024 12:23 09/19/2024 ADDENDUM STATUS: COMPLETED Emailed Deb Melendez at [facility] for update. /shen/ YESSI JOHNSON REGISTERED NURSE Signed: 09/19/2024 14:48 09/21/2024 ADDENDUM STATUS: COMPLETED patient has PCP F/U scheduled 10/02/2024 09:30 [facility] PACT STAR RES 2 /shen/ CHARITY HALL REGISTERED NURSE Signed: 09/21/2024 08:49 YESSI JOHNSON [facility] Sep 08, 2024 09:02 AM NONVA NOTE: LOCAL TITLE: [facility] SELF PRESENTING CARE COORD PLAN STANDARD TITLE: NONVA NOTE DATE OF NOTE: SEP 08, 2024@09:02 ENTRY DATE: SEP 12, 2024@09:03:21 AUTHOR: YESSI JOHNSON EXP COSIGNER: URGENCY: STATUS: COMPLETED [facility] SELF PRESENTING CARE COORD PLAN 657 STL Has ADDENDA Emergency Notification Intake Date Presenting to the Facility: Sep Method of Contact: Notified from An Estuary worklist Notification ID: [id number] [facility] Referral #: [id number] [facility] Address: City: [place] State: [place] Zip Code: Phone : Community Facility Point of Contact: Name: Phone: Chief complaint: NEAR SYNCOPE Primary Diagnosis: Disposition Admitted Route of Admission: Date of Admission: Sep Admitting Diagnosis: NEAR SYNCOPE Community Care Provider: Confirm Level of Care: Per notes received via RightFax, as of 09/10/24, patient was INPATIENT. He is hospitalized with weakness and near-syncope s/p recent lap meena. Patient had been advised to DC to acute rehab but refused and went home. Being treated for infectious gastroenteritis. Continues to have multiple episodes of diarrhea. Plan is to continue IV ABX, cardiac monitoring, fall precautions, and DC to rehab facility. Alerting PCP team to this note for continuity of care. Alerting NORMAN Mixon and Sofy Hollis to this note for possible [facility] placement. /camryn JOHNSON REGISTERED NURSE Signed: 09/12/2024 09:41 Receipt Acknowledged By: 09/13/2024 10:00 /camryn baird M.D. Staff Physician 09/14/2024 ADDENDUM STATUS: COMPLETED CONTINUED STAY REVIEW Contact Date: Sep Inpatient level of care required: Medicine Per faxed records received, patient was seen by podiatry for foot pain, for which they recommended PT, use of walker. Pt continues to have diarrhea. Monitoring K and replacing as needed. Patient will berta acute rehab postacutely. Alerting PCP and to anticipated need for postacute rehab. /camryn JOHNSON REGISTERED NURSE Signed: 09/14/2024 12:23 09/19/2024 ADDENDUM STATUS: COMPLETED Emailed Deb Melendez at [facility] for update. /camryn JOHNSON REGISTERED NURSE Signed: 09/19/2024 14:48 09/21/2024 ADDENDUM STATUS: COMPLETED Discharge Disposition Date of discharge: Sep Disposition Discharge to Shelter Facility Records received for this EOC; sent to [facility] for scanning and shared securely with [facility] PCP Team. The below is brief synopsis of the discharge summary: - Patient was treated for bacterial enteritis r/t most recent surgery, received IV abx, and was DC to SNF for ongoing weakness. No f/u recommendations were noted aside from PT/OT at SNF. The following postacute care recommendations have been identified: as aboe Further postacute care/referrals may be indicated. PCP, please review entire DC summary for any further needs. Please place consults as warranted to avoid non- payment of follow-up services. Alerting PCP team to this note for continuity of care. EOC complete. Postacute care resulting from this episode of care is NOT COVERED under this Auth Number, and must be preauthorized via consult. PCP - please review full DC summary at the time of discharge, and place any consults deemed appropriate to avoid non-payment for recommended services. /shen/ YESSI JOHNSON REGISTERED NURSE Signed: 09/21/2024 08:26 Receipt Acknowledged By: 09/21/2024 08:49 /camryn HALL REGISTERED NURSE * AWAITING SIGNATURE * MANUEL BAIRD 09/21/2024 ADDENDUM STATUS: COMPLETED patient has PCP F/U scheduled 10/02/2024 09:30 -HOSTETTER PACT STAR RES 2 /camryn HALL REGISTERED NURSE Signed: 09/21/2024 08:49 YESSI JOHNSON [facility] Sep 05, 2024 11:22 AM ADDENDUM: LOCAL TITLE: Addendum STANDARD TITLE: ADDENDUM DATE OF NOTE: SEP 05, 2024@11:22:57 ENTRY DATE: SEP 05, 2024@11:22:58 AUTHOR: YESSI JOHNSON EXP COSIGNER: URGENCY: STATUS: COMPLETED Per Nov at [facility], patient was DC home on 09/01/24 after being monitored in ER observation. No records pertinent to this ER Visit found in EHR. Faxed request for records to above hospital. Alerting PCP team to this note for continuity of care. /camryn JOHNSON REGISTERED NURSE Signed: 09/05/2024 11:23 Receipt Acknowledged By: 09/06/2024 10:56 /camryn HALL REGISTERED NURSE --- Original Document --- 08/31/24 [facility] SELF PRESENTING CARE COORD PLAN 657 STL: Emergency Notification Intake Date Presenting to the Facility: Aug Method of Contact: Notified from An Estuary worklist Notification ID: [id number] [facility] Referral #: [id number] [facility] Address: [facility]: [place] State: [place] Zip Code: Phone : Community Facility Point of Contact: Name: Phone: Chief complaint: ABDOMINAL PAIN Primary Diagnosis: Disposition Admitted Route of Admission: Date of Admission: Aug Admitting Diagnosis: NOT LISTED Community Care Provider: Confirm Level of Care: Per records received, patient likely needs intervention for gallbladder issues and possibly NSTEMI. Photographic Laboratory Technician recommendation is to transfer to [facility], where patient had CABG 5 weeks ago, for further management. Patient currently in observation at [facility] awaiting disposition. Alerting PCP team to this note for continuity of care. [facility] team is alerted to this continuing stay via BMS. /shen/ YESSI JOHNSON REGISTERED NURSE Signed: 09/01/2024 12:06 Receipt Acknowledged By: 09/04/2024 11:28 /es/ manuel baird M.D. Staff Physician 09/01/2024 14:59 /es/ JOSE SIERRA CONTENT DEVELOPMENT MANAGER CARDIOLOGY/ELECTROPHYSIOLO GY CONTENT DEVELOPMENT MANAGER 09/04/2024 16:56 /es/ CHARITY HALL REGISTERED NURSE 09/05/2024 ADDENDUM STATUS: COMPLETED Clinical update requested from Nov at [facility] via secure email. /shen/ YESSI JOHNSON REGISTERED NURSE Signed: 09/05/2024 08:54 YESSI JOHNSON [facility] Sep 01, 2024 08:51 AM NONVA NOTE: LOCAL TITLE: [facility] SELF PRESENTING CARE COORD PLAN STANDARD TITLE: NONVA NOTE DATE OF NOTE: SEP 01, 2024@08:51 ENTRY DATE: SEP 12, 2024@08:51:26 AUTHOR: YESSI JOHNSON EXP COSIGNER: URGENCY: STATUS: COMPLETED Emergency Notification Intake Date Presenting to the Facility: Aug Method of Contact: Notified from An Estuary worklist Notification ID: [id number] [facility] Referral #: [id number] - [id number] [facility] Name: Hospital: [facility] Address: City: [facility] State: [place] Zip Code: Phone : [facility] Point of Contact: Name: Phone: Chief complaint: CHOLECYSTITIS Primary Diagnosis: Disposition Discharged Date of discharge: Aug Discharge to home Records received for this EOC; sent to [facility] for scanning and shared securely with [facility] PCP Team. The below is an excerpt from the discharge summary (final attending note if no DC summary available): Hospital Course: Pt is a 74 yo CM with hx including CAD, asthma, DM, GERD with hiatal hernia, HTN, heart block. He had completed 3-vessel CABG on 07/24 at the [facility], subsequently with pacemaker placement for heart block. He presented to [facility] on 09/01 for abd pain - CT showed acute cholecystitis. Surgery there declined to intervene because of his recent cardiac surgery and he was transferred to [facility]. Upon arrival he was seen by Cardiology, had no evidence of acute cardiac problems and was cleared for surgery. He went to OR with Dr. Garduno on 09/05, that found a gangrenous gallbladder, convered to lap to open incision. On 09/06 he had ERCP due to high risk of bile duct leak. He recovered well from surgery/procedures, tolerated diet advancement, and had no other problems. He received 5 days of Zosyn and can finish treatment with 5 more days of Augmentin upon discharge. He did well with therapy evaluation and is planned for discharge home with home therapy - he is now off sternal precautions and will have drain removed prior to discharge, but should continue wound care. Outpatient Follow-Up: Future Appointments Date Time Provider Department Center 09/12/2024 1:15 PM Johnathan Mckee MD [facility] 11/15/2024 12:30 PM CARD DEVICE CHECK-[facility] 8B [facility] Cardiology 11/15/2024 1:00 PM Chrissy Bermudez, [facility] 8[facility] Cardiology The following postacute care recommendations have been identified: as above Further postacute care/referrals may be indicated. PCP, please review entire DC summary for any further needs. Please place consults as warranted to avoid non-payment of follow-up services. Alerting PCP team to this note for continuity of care. EOC complete. Postacute care resulting from this episode of care is NOT COVERED under this Auth Number, and must be preauthorized via consult. PCP - please review full DC summary at the time of discharge, and place any consults deemed appropriate to avoid non-payment for recommended services. /shen/ YESSI JOHNSON REGISTERED NURSE Signed: 09/12/2024 08:56 Receipt Acknowledged By: 09/12/2024 16:52 /shen/ CHARITY HALL REGISTERED NURSE 09/13/2024 10:00 /shen/ manuel baird M.D. Staff Physician YESSI JOHNSON [facility] Aug 31, 2024 11:57 AM NONVA NOTE: LOCAL TITLE: [facility] SELF PRESENTING CARE COORD PLAN STANDARD TITLE: NONVA NOTE DATE OF NOTE: AUG 31, 2024@11:57 ENTRY DATE: SEP 01, 2024@11:58:05 AUTHOR: YESSI JOHNSON EXP COSIGNER: URGENCY: STATUS: COMPLETED [facility] SELF PRESENTING CARE COORD PLAN [address] [facility] Has ADDENDA Emergency Notification Intake Date Presenting to the Facility: Aug Method of Contact: Notified from An Estuary worklist Notification ID: [id number] [facility] Referral #: [id number] Clinical Review [facility] Name: Hospital[facility] Address: City: [place] State: [place] Zip Code: Phone : Community Facility Point of Contact: Name: Phone: Chief complaint: ABDOMINAL PAIN Primary Diagnosis: Disposition Admitted Route of Admission: Date of Admission: Aug Admitting Diagnosis: NOT LISTED Community Care Provider: Confirm Level of Care: Per records received, patient likely needs intervention for gallbladder issues and possibly NSTEMI. Photographic Laboratory Technician recommendation is to transfer to [facility], where patient had CABG 5 weeks ago, for further management. Patient currently in observation at [facility] awaiting disposition. Alerting PCP team to this note for continuity of care. [facility] team is alerted to this continuing stay via BMS. /shen/ YESSI JOHNSON REGISTERED NURSE Signed: 09/01/2024 12:06 Receipt Acknowledged By: 09/04/2024 11:28 /shen/ manuel baird M.D. Staff Physician 09/01/2024 14:59 /es/ JOSE SIERRA CONTENT DEVELOPMENT MANAGER CARDIOLOGY/ELECTROPHYSIOLO GY CONTENT DEVELOPMENT MANAGER 09/04/2024 16:56 /shen/ CHARITY PHILLIPS NURSE 09/05/2024 ADDENDUM STATUS: COMPLETED Clinical update requested from Nov at [facility] via secure email. /camryn JOHNSON REGISTERED NURSE Signed: 09/05/2024 08:54 09/05/2024 ADDENDUM STATUS: COMPLETED Per Nov at [facility], patient was DC home on 09/01/24 after being monitored in ER observation. No records pertinent to this ER Visit found in EHR. Faxed request for records to above hospital. Alerting PCP team to this note for continuity of care. /camryn JOHNSON REGISTERED NURSE Signed: 09/05/2024 11:23 Receipt Acknowledged By: 09/06/2024 10:56 /camryn PHILLIPS NURSE 09/06/2024 ADDENDUM STATUS: COMPLETED see 09/06/24 V15 Pact phone contact note /camryn PHILLIPS NURSE Signed: 09/06/2024 11:02 09/12/2024 ADDENDUM STATUS: COMPLETED Records received. Patient TX to [facility] on 09/01/24 for higher level of care. PACT team has already received notes. Records r/t this episode of care received; sent to [facility] for scanning. /shen/ YESSI JOHNSON REGISTERED NURSE Signed: 09/12/2024 08:47 YESSI JOHNSON [facility] Aug 30, 2024 11:43 AM NONVA NOTE: LOCAL TITLE: [facility] SELF PRESENTING CARE COORD PLAN STANDARD TITLE: NONVA NOTE DATE OF NOTE: AUG 30, 2024@11:43 ENTRY DATE: SEP 01, 2024@11:43:20 AUTHOR: YESSI JOHNSON EXP COSIGNER: URGENCY: STATUS: COMPLETED Emergency Notification Intake Date Presenting to the Facility: Aug Method of Contact: Notified from An Estuary worklist Notification ID: [id number] [facility] Referral #: [id number] [facility] Name: Hospital[facility] Address: [facility]: [place] State: [place] Zip Code: Phone : [facility] Point of Contact: Name: Phone: Chief complaint: CHEST PAIN Primary Diagnosis: Disposition Discharged Date of discharge: Aug Discharge to home Patient left AMA, re-presented to same ER the following day, and is currently hospitalized. Records r/t this episode of care received; sent to [facility] for scanning. Alerting PCP team to this note for continuity of care. /shen/ YESSI JOHNSON REGISTERED NURSE Signed: 09/01/2024 11:46 Receipt Acknowledged By: 09/01/2024 16:00 /camryn HALL REGISTERED NURSE 09/04/2024 11:32 /shen/ manuel baird M.D. Staff Physician YESSI JOHNSON [facility]
--- OUTSIDE RECORDS SUMMARY | 2024-11-17 04:12 | XMS_ITS ---
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 Date/Time Encounter Type Encounter Description Reason Pro vider Source Aug 15, 2024 03:23 PM Inpatient Visit DAILY HOSPITALIZATION DATA MIKA JEFFERSON Nav Encounter Template Text not used by [...] AMBULATORY - SURGERY [facility] Sep 21, 2024 01:30 PM AMBULATORY - MEDICINE [facility] Sep 22, 2024 11:00 AM AMBULATORY - MEDICINE [facility] Sep 29, 2024 12:30 PM AMBULATORY - MEDICINE [facility] Oct 02, 2024 09:30 AM AMBULATORY - MEDICINE [facility] Nov 20, 2024 10:30 AM AMBULATORY - SURGERY [facility] Nov 21, 2024 10:00 AM AMBULATORY - NONE [facility] Dec 11, 2024 10:30 AM AMBULATORY - MEDICINE [facility] Active, Pending, and Scheduled [...] - Chemistry Order CBC BLOOD STAT SP [facility] Aug 02, 2024 12:00 AM Laboratory - Chemistry Order COMPREHENSIVE METABOLIC PANEL GREEN LI/HEP BLD/PLAS PLASMA SP [facility] Aug 17, 2024 03:47 PM Consult Order [facility] SKILLED HOME C[facility] ST[facility] Cons Bedside [facility] Lab Results: +/- 30 [...] Range Comment Aug 23, 2024 08:21 AM [facility] MAGNESIUM Specimen Type: PLASMA No comment entered. Ordering Provider: SILVIA REDDY Report Released Date/Time: Aug 22, 2024 11:26 AM Reporting Lab: [facility] [address] Performing Lab: [facility] [address] MAGNESIUM 1.8 mg/dL 1.6-2.6 Aug 23, 2024 08:21 AM [facility] CBC Specimen Type: BLOOD No comment entered. Ordering Provider: SILVIA REDDY Report Released Date/Time: Aug 22, 2024 11:19 AM Reporting Lab: [facility] [address] Performing Lab: [facility] [address] WBC 4.0 10*3/uL 3.6-11.2 RBC 3.65 10*6/uL [...] 10*3/uL 0.00-0.20 Aug 23, 2024 05:12 AM [facility] GLUCOSE,BLOOD-poct (STL) Specimen Type: BLOOD Comment: Test Performed by: [id number] Meter #: [id number] Ordering Provider: SILVIA REDDY Report Released Date/Time: Aug 23, 2024 05:23 AM Reporting Lab: [facility] [address] Performing Lab: [facility] [address] GLUCOSE,BLOOD- poct (STL) 99 mg/dL 72-99 Aug 23, 2024 02:45 AM [facility] OCCULT BLOOD FIT X1 SCREEN Specimen Type: FECES No comment entered. Ordering Provider: SILVIA REDDY Report Released Date/Time: Aug 22, 2024 11:23 AM Reporting Lab: [address] [address] Performing Lab: [facility] [address] [place] [address] OCCULT BLOOD (FIT) #1 OF 1 Negative Negative Aug 22, 2024 07:30 PM [facility] OCCULT BLOOD FIT X1 SCREEN Specimen Type: FECES No comment entered. Ordering Provider: SILVIA REDDY Report Released Date/Time: Aug 22, 2024 11:23 AM Reporting Lab: [facility] [address] [place] [address] Performing Lab: [address] [address] OCCULT BLOOD (FIT) #1 OF 1 Negative Negative Aug 22, 2024 06:15 PM [facility] OCCULT BLOOD FIT X1 SCREEN Specimen Type: FECES No comment entered. Ordering Provider: SILVIA REDDY Report Released Date/Time: Aug 22, 2024 11:23 AM Reporting Lab: [address] [address] Performing Lab: [place] [address] [facility] [address] OCCULT BLOOD (FIT) #1 OF 1 Negative Negative Aug 22, 2024 04:24 PM [facility] GLUCOSE,BLOOD-poct (STL) Specimen Type: BLOOD Comment: Test Performed by: [id number] Meter #: [id number] Ordering Provider: SILVIA REDDY Report Released Date/Time: Aug 22, 2024 04:36 PM Reporting Lab: [facility] [address] Performing Lab: [facility] [address] GLUCOSE,BLOOD- poct (STL) 176 mg/dL H -Aug 22, 2024 04:23 PM [facility] GLUCOSE,BLOOD-poct (STL) Specimen Type: BLOOD Comment: Test Performed by: [id number] Meter #: [id number] Ordering Provider: SILVIA REDDY Report Released Date/Time: Aug 22, 2024 04:36 PM Reporting Lab: [facility] [address] Performing Lab: [facility] [address] GLUCOSE,BLOOD- poct (STL) 221 mg/dL H -Aug 22, 2024 11:15 AM [facility] GLUCOSE,BLOOD-poct (STL) Specimen Type: BLOOD Comment: Test Performed by: [id number] Meter #: [id number] Ordering Provider: SILVIA REDDY Report Released Date/Time: Aug 22, 2024 11:27 AM Reporting Lab: [facility] [address] Performing Lab: [facility] [address] GLUCOSE,BLOOD- poct (STL) 140 mg/dL H 72-Aug 22, 2024 08:[address] [facility] FERRITIN Specimen Type: SERUM No comment entered. Ordering Provider: JUDIT PERKINS Report Released Date/Time: Aug 18, 2024 11:01 AM Reporting Lab: [facility] [address] [facility] [address] Performing Lab: [facility] [address] [facility] [address] FERRITIN 79.50 ng/mL 22-275 Aug 22, 2024 08:03 AM [facility] IRON/TIBC PROFILE Specimen Type: SERUM No comment entered. Ordering Provider: JUDIT PERKINS Report Released Date/Time: Aug 18, 2024 11:01 AM Reporting Lab: [address] [address] Performing Lab: [address] [address] TIBC 283 ug/dL 250-450 TRANSFERRIN 226 mg/dL 163-344 IRON SATURATION 7 L 20-50 IRON 19 ug/dL L 65-175 Aug 22, 2024 08:03 AM [facility] B12 Specimen Type: SERUM No comment entered. Ordering Provider: JUDIT PERKINS Report Released Date/Time: Aug 18, 2024 11:01 AM Reporting Lab: [facility] [address] Performing Lab: [facility] [address] B12 631 pg/mL 213-816 Aug 22, 2024 08:03 AM [facility] COMPREHENSIVE METABOLIC PANEL Specimen Type: PLASMA Comment: No hemolysis noted. Ordering Provider: SILVIA REDDY Report Released Date/Time: Aug 17, 2024 01:18 PM Reporting Lab: [facility] [address] [facility] [address] Performing Lab: [address] [address] CREATININE 0.80 mg/dL 0.7-1.3 UREA NITROGEN 9.7 [...] 94.0 >60 Aug 22, 2024 08:03 AM [facility] CBC Specimen Type: BLOOD No comment entered. Ordering Provider: SILVIA REDDY Report Released Date/Time: Aug 17, 2024 01:18 PM Reporting Lab: [facility] [address] Performing Lab: [facility] [address] WBC 3.5 10*3/uL L 3.6-11.2 RBC 3.23 [...] NRBC% 0 Aug 22, 2024 05:03 AM [facility] GLUCOSE,BLOOD-poct (STL) Specimen Type: BLOOD Comment: Test Performed by: [id number] Meter #: [id number] Ordering Provider: SILVIA REDDY Report Released Date/Time: Aug 22, 2024 06:17 AM Reporting Lab: [facility] [address] Performing Lab: [facility] [address] GLUCOSE,BLOOD- poct (STL) 170 mg/dL H 72-Aug 21, 2024 04:32 PM [facility] GLUCOSE,BLOOD-poct (STL) Specimen Type: BLOOD Comment: Test Performed by: [id number] Meter #: [id number] Ordering Provider: SILVIA REDDY Report Released Date/Time: Aug 21, 2024 04:49 PM Reporting Lab: [facility] [address] Performing Lab: [facility] [address] GLUCOSE,BLOOD- poct (STL) 169 mg/dL H -Aug 21, 2024 11:53 AM [facility] GLUCOSE,BLOOD-poct (STL) Specimen Type: BLOOD Comment: Test Performed by: [id number] Meter #: [id number] Ordering Provider: SILVIA REDDY Report Released Date/Time: Aug 21, 2024 12:11 PM Reporting Lab: [facility] [address] Performing Lab: [facility] [address] GLUCOSE,BLOOD- poct (STL) 149 mg/dL H 72-99 Aug 21, 2024 05:10 AM [facility] GLUCOSE,BLOOD-poct (STL) Specimen Type: BLOOD Comment: Test Performed by: [id number] Meter #: [id number] Ordering Provider: SILVIA REDDY Report Released Date/Time: Aug 21, 2024 05:27 AM Reporting Lab: [facility]1 [place] [address] Performing Lab: [facility] [address] GLUCOSE,BLOOD- poct (STL) 118 mg/dL H 72-Aug 20, 2024 04:38 PM [facility] GLUCOSE,BLOOD-poct (STL) Specimen Type: BLOOD Comment: Test Performed by: [id number] Meter #: [id number] Ordering Provider: SILVIA REDDY Report Released Date/Time: Aug 21, 2024 01:55 AM Reporting Lab: [facility] [place] [address] Performing Lab: [facility] [place] [address] GLUCOSE,BLOOD- poct (STL) 169 mg/dL H -Aug 20, 2024 04:36 PM [facility] GLUCOSE,BLOOD-poct (STL) Specimen Type: BLOOD Comment: Test Performed by: [id number] Meter #: [id number] Ordering Provider: ISLVIA REDDY Report Released Date/Time: Aug 21, 2024 01:55 AM Reporting Lab: [facility] [place] [address] Performing Lab: [facility] [place] [address] GLUCOSE,BLOOD- poct (STL) 395 mg/dL H 72-Aug 20, 2024 11:45 AM [facility] GLUCOSE,BLOOD-poct (STL) Specimen Type: BLOOD Comment: Test Performed by: [id number] Meter #: [id number] Ordering Provider: SILVIA REDDY Report Released Date/Time: Aug 20, 2024 11:56 AM Reporting Lab: [facility] Performing Lab: [facility] [address] GLUCOSE,BLOOD- poct (STL) 169 mg/dL H -Aug 20, 2024 05:06 AM [facility] GLUCOSE,BLOOD-poct (STL) Specimen Type: BLOOD Comment: Test Performed by: [id number] Meter #: [id number] Ordering Provider: SILVIA REDDY Report Released Date/Time: Aug 20, 2024 06:05 AM Reporting Lab: [facility] [address] Performing Lab: [facility] [address] GLUCOSE,BLOOD- poct (STL) 115 mg/dL H -Aug 19, 2024 04:23 PM [facility] GLUCOSE,BLOOD-poct (STL) Specimen Type: BLOOD Comment: Test Performed by: [id number] Meter #: [id number] Ordering Provider: SILVIA REDDY Report Released Date/Time: Aug 19, 2024 05:54 PM Reporting Lab: [facility] [address] Performing Lab: [facility] [address] GLUCOSE,BLOOD- poct (STL) 137 mg/dL H Aug 19, 2024 11:28 AM [facility] GLUCOSE,BLOOD-poct (STL) Specimen Type: BLOOD Comment: Test Performed by: [id number] Meter #: [id number] Ordering Provider: SILVIA REDDY Report Released Date/Time: Aug 19, 2024 11:51 AM Reporting Lab: [facility] [address] Performing Lab: [facility] [address] GLUCOSE,BLOOD- poct (STL) 190 mg/dL H Aug 19, 2024 05:21 AM [facility] GLUCOSE,BLOOD-poct (STL) Specimen Type: BLOOD Comment: Test Performed by: [id number] Meter #: [id number] Ordering Provider: SILVIA REDDY Report Released Date/Time: Aug 19, 2024 05:56 AM Reporting Lab: [facility] [address] Performing Lab: [facility] [address] GLUCOSE,BLOOD- poct (STL) 130 mg/dL H Aug 18, 2024 04:49 PM [facility] GLUCOSE,BLOOD-poct (STL) Specimen Type: BLOOD Comment: Test Performed by: [id number] Meter #: [id number] Ordering Provider: SILVIA REDDY Report Released Date/Time: Aug 18, 2024 05:01 PM Reporting Lab: [facility] [address] Performing Lab: [facility] [address] GLUCOSE,BLOOD- poct (STL) 129 mg/dL H Aug 18, 2024 11:23 AM [facility] GLUCOSE,BLOOD-poct (STL) Specimen Type: BLOOD Comment: Test Performed by: [id number] Meter #: [id number] Ordering Provider: SILVIA REDDY Report Released Date/Time: Aug 18, 2024 11:41 AM Reporting Lab: [facility] [address] Performing Lab: [facility] [address] GLUCOSE,BLOOD- poct (STL) 180 mg/dL H Aug 18, 2024 05:08 AM [facility] GLUCOSE,BLOOD-poct (STL) Specimen Type: BLOOD Comment: Test Performed by: [id number] Meter #: [id number] Ordering Provider: SILVIA REDDY Report Released Date/Time: Aug 18, 2024 05:31 AM Reporting Lab: [facility] [address] Performing Lab: [facility] [address] GLUCOSE,BLOOD- poct (STL) 127 mg/dL H -Aug 17, 2024 07:32 PM [facility] GLUCOSE,BLOOD-poct (STL) Specimen Type: BLOOD Comment: Test Performed by: [id number] Meter #: [id number] Ordering Provider: SILVIA REDDY Report Released Date/Time: Aug 17, 2024 07:59 PM Reporting Lab: [facility] [address] Performing Lab: [facility]1 [place] [address] GLUCOSE,BLOOD- poct (STL) 154 mg/dL H -Aug 17, 2024 04:24 PM [facility] GLUCOSE,BLOOD-poct (STL) Specimen Type: BLOOD Comment: Test Performed by: [id number] Meter #: [id number] Ordering Provider: SILVIA REDDY Report Released Date/Time: Aug 17, 2024 04:35 PM Reporting Lab: [facility] [address] Performing Lab: [facility] [address] GLUCOSE,BLOOD- poct (STL) 178 mg/dL H -Aug 17, 2024 05:09 AM [facility] GLUCOSE,BLOOD-poct (STL) Specimen Type: BLOOD Comment: Test Performed by: [id number] Meter #: [id number] Ordering Provider: SILVIA REDDY Report Released Date/Time: Aug 17, 2024 05:54 AM Reporting Lab: [facility] Performing Lab: [facility] [address] GLUCOSE,BLOOD- poct (STL) 124 mg/dL H -Aug 16, 2024 07:40 PM [facility] GLUCOSE,BLOOD-poct (STL) Specimen Type: BLOOD Comment: Test Performed by: [id number] Meter #: [id number] Ordering Provider: SILVIA REDDY Report Released Date/Time: Aug 16, 2024 08:28 PM Reporting Lab: [facility] [address] Performing Lab: [facility] [address] GLUCOSE,BLOOD- poct (STL) 144 mg/dL H Aug 16, 2024 04:19 PM [facility] GLUCOSE,BLOOD-poct (STL) Specimen Type: BLOOD Comment: Test Performed by: [id number] Meter #: [id number] Ordering Provider: SILVIA REDDY Report Released Date/Time: Aug 16, 2024 04:45 PM Reporting Lab: [facility] [address] Performing Lab: [facility] [address] GLUCOSE,BLOOD- poct (STL) 138 mg/dL H Aug 16, 2024 11:52 AM [facility] GLUCOSE,BLOOD-poct (STL) Specimen Type: BLOOD Comment: Test Performed by: [id number] Meter #: [id number] Ordering Provider: SILVIA REDDY Report Released Date/Time: Aug 16, 2024 12:04 PM Reporting Lab: [facility] [address] Performing Lab: [facility] [address] GLUCOSE,BLOOD- poct (STL) 135 mg/dL H Aug 16, 2024 05:24 AM [facility] GLUCOSE,BLOOD-poct (STL) Specimen Type: BLOOD Comment: Test Performed by: [id number] Meter #: [id number] Ordering Provider: SILVIA REDDY Report Released Date/Time: Aug 16, 2024 05:38 AM Reporting Lab: [facility] [address] Performing Lab: [facility] [address] GLUCOSE,BLOOD- poct (STL) 151 mg/dL H Aug 15, 2024 07:31 PM [facility] GLUCOSE,BLOOD-poct (STL) Specimen Type: BLOOD Comment: Test Performed by: [id number] Meter #: [id number] Ordering Provider: SILVIA REDDY Report Released Date/Time: Aug 15, 2024 08:07 PM Reporting Lab: [facility] [address] Performing Lab: [facility] [address] GLUCOSE,BLOOD- poct (STL) 173 mg/dL H Aug 15, 2024 04:18 PM [facility] GLUCOSE,BLOOD-poct (STL) Specimen Type: BLOOD Comment: Test Performed by: [id number] Meter #: [id number] Ordering Provider: SILVIA REDDY Report Released Date/Time: Aug 15, 2024 04:59 PM Reporting Lab: [facility] [address] Performing Lab: [facility] [address] GLUCOSE,BLOOD- poct (STL) 136 mg/dL H Aug 15, 2024 04:16 PM [facility] GLUCOSE,BLOOD-poct (STL) Specimen Type: BLOOD Comment: Test Performed by: [id number] Meter #: [id number] Ordering Provider: SILVIA REDDY Report Released Date/Time: Aug 15, 2024 04:59 PM Reporting Lab: [facility] [address] Performing Lab: [facility] [address] GLUCOSE,BLOOD- poct (STL) 194 mg/dL H -Aug 15, 2024 11:39 AM [facility] GLUCOSE,BLOOD-poct (STL) Specimen Type: BLOOD Comment: Test Performed by: [id number] Meter #: [id number] Ordering Provider: SILVIA REDDY Report Released Date/Time: Aug 15, 2024 12:00 PM Reporting Lab: [facility] [address] Performing Lab: [facility] [place] [address] GLUCOSE,BLOOD- poct (STL) 127 mg/dL H -Aug 15, 2024 05:07 AM [facility] GLUCOSE,BLOOD-poct (STL) Specimen Type: BLOOD Comment: Test Performed by: [id number] Meter #: [id number] Ordering Provider: SILVIA REDDY Report Released Date/Time: Aug 15, 2024 06:14 AM Reporting Lab: [facility] [address] Performing Lab: [facility] [address] GLUCOSE,BLOOD- poct (STL) 151 mg/dL H -Aug 14, 2024 04:22 PM [facility] GLUCOSE,BLOOD-poct (STL) Specimen Type: BLOOD Comment: Test Performed by: [id number] Meter #: [id number] Ordering Provider: SILVIA REDDY Report Released Date/Time: Aug 14, 2024 04:52 PM Reporting Lab: [facility] Performing Lab: [facility] [address] GLUCOSE,BLOOD- poct (STL) 129 mg/dL H 72-99 Aug 14, 2024 11:21 AM [facility] GLUCOSE,BLOOD-poct (STL) Specimen Type: BLOOD Comment: Test Performed by: [id number] Meter #: [id number] Ordering Provider: SILVIA REDDY Report Released Date/Time: Aug 14, 2024 11:37 AM Reporting Lab: [facility] [address] Performing Lab: [facility] [address] GLUCOSE,BLOOD- poct (STL) 135 mg/dL H 72-99 Aug 14, 2024 06:59 AM [facility] QUANTIFERON-TB,4 TUBE Specimen Type: BLOOD [...] For additional information, please refer to http://education. [employer]. [employer]/faq/VLI650 (This link is being provided for information/ educational purposes only.) Test Performed by [employer], [employer] [facility], [address] [place] [address] Tommie Garcia M.D., Ph.D., Director of Laboratories , [facility] [id number] Ordering Provider: SILVIA REDDY Report Released Date/Time: Aug 11, 2024 03:58 PM Reporting Lab: [facility] [address] [facility] [address] Performing Lab: [facility] [id number] [place] [address] .NIL - QUANTIFERON 0.04 [IU]/mL .MITOGEN-NIL 0.39 [IU]/mL .QUANTIFERON INDETERMINATE NEGATIVE .TB1-NIL <0.00 [IU]/mL .TB2-NIL <0.00 [IU]/mL Aug 14, 2024 06:59 AM [facility] MAGNESIUM Specimen Type: PLASMA Comment: No hemolysis noted. Ordering Provider: SILVIA REDDY Report Released Date/Time: Aug 11, 2024 03:58 PM Reporting Lab: [facility] [address] Performing Lab: [facility] [address] MAGNESIUM 1.9 mg/dL 1.6-2.6 Aug 14, 2024 06:59 AM [facility] B12 Specimen Type: SERUM No comment entered. Ordering Provider: SILVIA REDDY Report Released Date/Time: Aug 11, 2024 03:58 PM Reporting Lab: [facility] [id number] Performing Lab: [facility] [id number] B12 757 pg/mL 213-816 Aug 14, 2024 06:59 AM [facility] FOLATE (STL-MA) Specimen Type: SERUM No comment entered. Ordering Provider: SILVIA REDDY Report Released Date/Time: Aug 11, 2024 03:58 PM Reporting Lab: [facility] [address] Performing Lab: [facility] [address] FOLATE (STL-MA) 6.8 ng/mL L 7-20 Aug 14, 2024 06:59 AM [facility] VITAMIN D, 25-HYDROXY Specimen Type: SERUM No comment entered. Ordering Provider: SILVIA REDDY Report Released Date/Time: Aug 11, 2024 03:58 PM Reporting Lab: [facility] [address] Performing Lab: [facility] [address] VITAMIN D, 25-HYDROXY 8.9 ng/mL L 30-96 Aug 14, 2024 06:59 AM [facility] COMPREHENSIVE METABOLIC PANEL Specimen Type: PLASMA Comment: No hemolysis noted. Ordering Provider: SILVIA REDDY Report Released Date/Time: Aug 11, 2024 03:58 PM Reporting Lab: [facility] [address] Performing Lab: [facility] [address] CREATININE 0.75 mg/dL 0.70-1.30 UREA NITROGEN 13.6 [...] 95.88 >60 Aug 14, 2024 06:59 AM [facility] CBC Specimen Type: BLOOD No comment entered. Ordering Provider: SILVIA REDDY Report Released Date/Time: Aug 11, 2024 03:58 PM Reporting Lab: [facility] [address] Performing [facility] [facility] [address] WBC 4.1 10*3/uL 3.6-11.2 RBC 3.20 10*6/uL [...] 10*3/uL 0.00-0.20 Aug 14, 2024 05:08 AM [facility] GLUCOSE,BLOOD-poct (STL) Specimen Type: BLOOD Comment: Test Performed by: [id number] Meter #: [id number] Ordering Provider: SILVIA REDDY Report Released Date/Time: Aug 14, 2024 05:52 AM Reporting Lab: [facility] [address] Performing Lab: [facility] [address] GLUCOSE,BLOOD- poct (STL) 135 mg/dL H 72-99 Aug 13, 2024 04:27 PM [facility] GLUCOSE,BLOOD-poct (STL) Specimen Type: BLOOD Comment: Test Performed by: [id number] Meter #: [id number] Ordering Provider: SILVIA REDDY Report Released Date/Time: Aug 13, 2024 04:41 PM Reporting Lab: [facility] [address] Performing Lab: [facility] [address] GLUCOSE,BLOOD- poct (STL) 181 mg/dL H -Aug 13, 2024 11:33 AM [facility] GLUCOSE,BLOOD-poct (STL) Specimen Type: BLOOD Comment: Test Performed by: [id number] Meter #: [id number] Ordering Provider: SILVIA REDDY Report Released Date/Time: Aug 13, 2024 03:55 PM Reporting Lab: [facility]1 [facility] [address] Performing Lab: [facility] [address] GLUCOSE,BLOOD- poct (STL) 140 mg/dL H -Aug 13, 2024 05:54 AM [facility] GLUCOSE,BLOOD-poct (STL) Specimen Type: BLOOD Comment: Test Performed by: [id number] Meter #: [id number] Ordering Provider: SILVIA REDDY Report Released Date/Time: Aug 13, 2024 06:20 AM Reporting Lab: [facility] [address] Performing Lab: [facility]1 [facility] [address] GLUCOSE,BLOOD- poct (STL) 112 mg/dL H -Aug 12, 2024 04:35 PM [facility] GLUCOSE,BLOOD-poct (STL) Specimen Type: BLOOD Comment: Test Performed by: [id number] Meter #: [id number] Ordering Provider: SILVIA REDDY Report Released Date/Time: Aug 12, 2024 04:47 PM Reporting Lab: [facility] [address] Performing Lab: [facility] [address] GLUCOSE,BLOOD- poct (STL) 128 mg/dL H 72-99 Aug 12, 2024 11:26 AM [facility] GLUCOSE,BLOOD-poct (STL) Specimen Type: BLOOD Comment: Test Performed by: [id number] Meter #: [id number] Ordering Provider: SILVIA REDDY Report Released Date/Time: Aug 12, 2024 11:45 AM Reporting Lab: [facility] [address] Performing Lab: [facility]1 [facility] [address] GLUCOSE,BLOOD- poct (STL) 188 mg/dL H 72-Aug 12, 2024 06:13 AM [facility] GLUCOSE,BLOOD-poct (STL) Specimen Type: BLOOD Comment: Test Performed by: [id number] Meter #: [id number] Ordering Provider: SILVIA REDDY Report Released Date/Time: Aug 12, 2024 06:25 AM Reporting Lab: [facility] [address] Performing Lab: [facility]1 [facility] [address] GLUCOSE,BLOOD- poct (STL) 116 mg/dL H 72-99 Aug 11, 2024 04:10 PM [facility] GLUCOSE,BLOOD-poct (STL) Specimen Type: BLOOD Comment: Test Performed by: [id number] Meter #: [id number] Ordering Provider: SILVIA REDDY Report Released Date/Time: Aug 11, 2024 04:27 PM Reporting Lab: [facility] [place] [address] Performing Lab: [facility] [address] GLUCOSE,BLOOD- poct (STL) 184 mg/dL H 72-99 Aug 11, 2024 01:44 PM [facility] MRSA SURVL NARES DNA Specimen [...] 11, 2024 02:03 PM Reporting Lab: [address] [address] Performing Lab: [address] [address] MRSA SURVL NARES DNA Negative Negative Jul 20, 2024 11:18 AM [facility] APTT Specimen Type: PLASMA No comment entered. Ordering Provider: MANUEL BAIRD Report Released Date/Time: Jul 19, 2024 04:00 PM Reporting Lab: [address] [address] Performing Lab: [address] [address] APTT 32.1 s 26.7-39.9 Jul 20, 2024 11:18 AM [facility] PT/INR NEW ([facility]) Specimen Type: PLASMA No comment entered. Ordering Provider: MANUEL BAIRD Report Released Date/Time: Jul 19, 2024 04:00 PM Reporting Lab: [address] [address] Performing Lab: [address] [address] PROTIME 14.4 s H 9.4-12.5 INR VALUE 1.3 {INR} Jul 20, 2024 11:18 AM [facility] CBC Specimen Type: BLOOD No comment entered. Ordering Provider: MANUEL BAIRD Report Released Date/Time: Jul 19, 2024 04:00 PM Reporting Lab: [facility] [address] [facility] [address] Performing Lab: [address] [address] WBC 4.7 10*3/uL 3.6-11.2 RBC 4.86 10*6/uL [...] 1.6 1.0-7.0 Jul 17, 2024 08:02 AM [facility] BASIC METABOLIC PANEL Specimen Type: PLASMA Comment: No hemolysis noted. Ordering Provider: MARY SERNA Report Released Date/Time: Jun 07, 2024 01:43 PM Reporting Lab: [facility] [address] [facility] [address] Performing Lab: [address] [address] CREATININE 0.85 mg/dL 0.7-1.3 UREA NITROGEN 15.2 [...] PM 97.8 68 122/76 18 96 0 [facility] Aug 15, 2024 03:23 PM 97.7 [facility] Aug 15, 2024 12:19 PM 0 [facility] Aug 15, 2024 10:00 AM 97.8 84 120/72 18 95 0 [facility] Aug 15, 2024 05:35 AM 98.1 80 115/67 20 95 [facility] Advance Directives: All historical and current Section Date Range: From patient's date of to the date document was created. This section includes ALL of a patient's completed or amended [place] Advance and Rescinded Directives. The entries below indicate that a directive exists for the patient, but an actual copy is not included with this document. The data comes from all [place] facilities. Date Advance Directives Provider Source Jan 19, 2017 ADVANCE DIRECTIVE DISCUSSION ERICK BARDALES [facility]
--- OUTSIDE RECORDS SUMMARY | 2024-11-17 04:12 | XMS_ITS ---
[facility] DAILY HOSPITALIZATION DATA [facility] Encounter Summary Created on: November 16, 2024 CHET WALKER : 1950 Sex: Male Author Name [facility] Organization [facility] Address [address] [place] [address] Care Team Providers Care Wrapper Sorter Name Role Phone MANUEL BAIRD Primary [...] PART A Apr 08, 2017 PART A [id number] ASHLEY WALKER PATIENT Selected Encounter This section includes the information on record at [facility] for the Encounter. Date/Time Encounter Type Encounter Description Reason Pro vider Source Aug 15, 2024 11:55 PM Inpatient Visit DAILY HOSPITALIZATION DATA JOSSELINE ANNA [...] 24, 2024 10:00 AM AMBULATORY - MEDICINE [facility] Aug 24, 2024 10:30 AM AMBULATORY - MEDICINE [facility] Aug 30, 2024 09:30 AM AMBULATORY MEDICINE [facility] Aug 31, 2024 01:00 PM AMBULATORY - SURGERY [facility] Sep 21, 2024 01:30 PM AMBULATORY - MEDICINE [facility] Sep 22, 2024 11:00 AM AMBULATORY - MEDICINE [facility] Sep 29, 2024 12:30 PM AMBULATORY - MEDICINE [facility] Oct 02, 2024 09:30 AM AMBULATORY - MEDICINE [facility] Nov 20, 2024 10:30 AM AMBULATORY - SURGERY [facility] Nov 21, 2024 10:00 AM AMBULATORY - NONE [facility] Dec 11, 2024 10:30 AM AMBULATORY - MEDICINE [facility] Active, Pending, and Scheduled Orders [...] - Chemistry Order CBC BLOOD STAT SP [facility] Aug 02, 2024 12:00 AM Laboratory - Chemistry Order COMPREHENSIVE METABOLIC PANEL GREEN LI/HEP BLD/PLAS PLASMA SP [facility] Aug 17, 2024 03:47 PM Consult Order [facility] Cons Bedside [facility] Lab Results: +/- 30 days [...] Range Comment Aug 23, 2024 08:21 AM [facility] MAGNESIUM Specimen Type: PLASMA No comment entered. Ordering Provider: SILVIA REDDY Report Released Date/Time: Aug 22, 2024 11:26 AM Reporting Lab: [facility] [address] Performing Lab: [facility] [address] MAGNESIUM 1.8 mg/dL 1.6-2.6 Aug 23, 2024 08:21 AM [facility] CBC Specimen Type: BLOOD No comment entered. Ordering Provider: SILVIA REDDY Report Released Date/Time: Aug 22, 2024 11:19 AM Reporting Lab: [facility] [address] Performing Lab: [facility] [address] WBC 4.0 10*3/uL 3.6-11.2 RBC 3.65 10*6/uL [...] 10*3/uL 0.00-0.20 Aug 23, 2024 05:12 AM [facility] GLUCOSE,BLOOD-poct (STL) Specimen Type: BLOOD Comment: Test Performed by: [id number] Meter #: [id number] Ordering Provider: SILVIA REDDY Report Released Date/Time: Aug 23, 2024 05:23 AM Reporting Lab: [facility] [address] Performing Lab: [facility] [address] GLUCOSE,BLOOD- poct (STL) 99 mg/dL 72-99 Aug 23, 2024 02:45 AM [facility] OCCULT BLOOD FIT X1 SCREEN Specimen Type: FECES No comment entered. Ordering Provider: SILVIA REDDY Report Released Date/Time: Aug 22, 2024 11:23 AM Reporting Lab: [address] [address] Performing Lab: [address] [address] OCCULT BLOOD (FIT) #1 OF 1 Negative Negative Aug 22, 2024 07:30 PM [facility] OCCULT BLOOD FIT X1 SCREEN Specimen Type: FECES No comment entered. Ordering Provider: SILVIA REDDY Report Released Date/Time: Aug 22, 2024 11:23 AM Reporting Lab: [address] [address] Performing Lab: [address] [address] OCCULT BLOOD (FIT) #1 OF 1 Negative Negative Aug 22, 2024 06:15 PM [facility] OCCULT BLOOD FIT X1 SCREEN Specimen Type: FECES No comment entered. Ordering Provider: SILVIA REDDY Report Released Date/Time: Aug 22, 2024 11:23 AM Reporting Lab: [address] [address] Performing Lab: [place] [address] [facility] [address] OCCULT BLOOD (FIT) #1 OF 1 Negative Negative Aug 22, 2024 04:24 PM [facility] GLUCOSE,BLOOD-poct (STL) Specimen Type: BLOOD Comment: Test Performed by: [id number] Meter #: [id number] Ordering Provider: SILVIA REDDY Report Released Date/Time: Aug 22, 2024 04:36 PM Reporting Lab: [facility] [address] Performing Lab: [facility] [address] GLUCOSE,BLOOD- poct (STL) 176 mg/dL H -Aug 22, 2024 04:23 PM [facility] GLUCOSE,BLOOD-poct (STL) Specimen Type: BLOOD Comment: Test Performed by: [id number] Meter #: [id number] Ordering Provider: SILVIA REDDY Report Released Date/Time: Aug 22, 2024 04:36 PM Reporting Lab: [facility] [address] Performing Lab: [facility] [address] GLUCOSE,BLOOD- poct (STL) 221 mg/dL H 72-Aug 22, 2024 11:15 AM [facility] GLUCOSE,BLOOD-poct (STL) Specimen Type: BLOOD Comment: Test Performed by: [id number] Meter #: [id number] Ordering Provider: SILVIA REDDY Report Released Date/Time: Aug 22, 2024 11:27 AM Reporting Lab: [facility] [address] Performing Lab: [facility] [address] GLUCOSE,BLOOD- poct (STL) 140 mg/dL H 72-Aug 22, 2024 08:[address] [facility] FERRITIN Specimen Type: SERUM No comment entered. Ordering Provider: JUDIT PERKINS Report Released Date/Time: Aug 18, 2024 11:01 AM Reporting Lab: [facility] [address] [facility] [address] Performing Lab: [facility] [address] [place] [address] FERRITIN 79.50 ng/mL 22-275 Aug 22, 2024 08:03 AM [facility] IRON/TIBC PROFILE Specimen Type: SERUM No comment entered. Ordering Provider: JUDIT PERKINS Report Released Date/Time: Aug 18, 2024 11:01 AM Reporting Lab: [address] [address] Performing Lab: [address] [address] TIBC 283 ug/dL 250-450 TRANSFERRIN 226 mg/dL 163-344 IRON SATURATION 7 L 20-50 IRON 19 ug/dL L 65-175 Aug 22, 2024 08:03 AM [facility] B12 Specimen Type: SERUM No comment entered. Ordering Provider: JUDIT PERKINS Report Released Date/Time: Aug 18, 2024 11:01 AM Reporting Lab: [facility] [address] Performing Lab: [facility] [address] B12 631 pg/mL 213-816 Aug 22, 2024 08:03 AM [facility] COMPREHENSIVE METABOLIC PANEL Specimen Type: PLASMA Comment: No hemolysis noted. Ordering Provider: SILVIA REDDY Report Released Date/Time: Aug 17, 2024 01:18 PM Reporting Lab: [facility] [address] [facility] [address] Performing Lab: [address] [address] CREATININE 0.80 mg/dL 0.7-1.3 UREA NITROGEN 9.7 [...] Aug 22, 2024 08:03 AM [facility] CBC Specimen Type: BLOOD No comment entered. Ordering Provider: SILVIA REDDY Report Released Date/Time: Aug 17, 2024 01:18 PM Reporting Lab: [facility] [address] Performing Lab: [facility] [address] WBC 3.5 10*3/uL L 3.6-11.2 RBC 3.23 [...] NRBC% 0 Aug 22, 2024 05:03 AM [facility] GLUCOSE,BLOOD-poct (STL) Specimen Type: BLOOD Comment: Test Performed by: [id number] Meter #: [id number] Ordering Provider: SILVIA REDDY Report Released Date/Time: Aug 22, 2024 06:17 AM Reporting Lab: [facility] [address] Performing Lab: [facility] [address] GLUCOSE,BLOOD- poct (STL) 170 mg/dL H 72-Aug 21, 2024 04:32 PM [facility] GLUCOSE,BLOOD-poct (STL) Specimen Type: BLOOD Comment: Test Performed by: [id number] Meter #: [id number] Ordering Provider: SILVIA REDDY Report Released Date/Time: Aug 21, 2024 04:49 PM Reporting Lab: [facility] [address] Performing Lab: [facility] [address] GLUCOSE,BLOOD- poct (STL) 169 mg/dL H -Aug 21, 2024 11:53 AM [facility] GLUCOSE,BLOOD-poct (STL) Specimen Type: BLOOD Comment: Test Performed by: [id number] Meter #: [id number] Ordering Provider: SILVIA REDDY Report Released Date/Time: Aug 21, 2024 12:11 PM Reporting Lab: [facility] [address] Performing Lab: [facility] [address] GLUCOSE,BLOOD- poct (STL) 149 mg/dL H 72-Aug 21, 2024 05:10 AM [facility] GLUCOSE,BLOOD-poct (STL) Specimen Type: BLOOD Comment: Test Performed by: [id number] Meter #: [id number] Ordering Provider: SILVIA REDDY Report Released Date/Time: Aug 21, 2024 05:27 AM Reporting Lab: [facility] [address] Performing Lab: [facility] [address] GLUCOSE,BLOOD- poct (STL) 118 mg/dL H 72-Aug 20, 2024 04:38 PM [facility] GLUCOSE,BLOOD-poct (STL) Specimen Type: BLOOD Comment: Test Performed by: [id number] Meter #: [id number] Ordering Provider: SILVIA REDDY Report Released Date/Time: Aug 21, 2024 01:55 AM Reporting Lab: [facility] [address] Performing Lab: [facility] [place] [address] GLUCOSE,BLOOD- poct (STL) 169 mg/dL H -Aug 20, 2024 04:36 PM [facility] GLUCOSE,BLOOD-poct (STL) Specimen Type: BLOOD Comment: Test Performed by: [id number] Meter #: [id number] Ordering Provider: SILVIA REDDY Report Released Date/Time: Aug 21, 2024 01:55 AM Reporting Lab: [facility] [address] Performing Lab: [facility] [address] GLUCOSE,BLOOD- poct (STL) 395 mg/dL H 72-Aug 20, 2024 11:45 AM [facility] GLUCOSE,BLOOD-poct (STL) Specimen Type: BLOOD Comment: Test Performed by: [id number] Meter #: [id number] Ordering Provider: SILVIA REDDY Report Released Date/Time: Aug 20, 2024 11:56 AM Reporting Lab: [facility] [place] [address] Performing Lab: [facility] [address] GLUCOSE,BLOOD- poct (STL) 169 mg/dL H -Aug 20, 2024 05:06 AM [facility] GLUCOSE,BLOOD-poct (STL) Specimen Type: BLOOD Comment: Test Performed by: [id number] Meter #: [id number] Ordering Provider: SILVIA REDDY Report Released Date/Time: Aug 20, 2024 06:05 AM Reporting Lab: [facility] [address] Performing Lab: [facility] [address] GLUCOSE,BLOOD- poct (STL) 115 mg/dL H -Aug 19, 2024 04:23 PM [facility] GLUCOSE,BLOOD-poct (STL) Specimen Type: BLOOD Comment: Test Performed by: [id number] Meter #: [id number] Ordering Provider: SILVIA REDDY Report Released Date/Time: Aug 19, 2024 05:54 PM Reporting Lab: [facility] [address] Performing Lab: [facility] [address] GLUCOSE,BLOOD- poct (STL) 137 mg/dL H -Aug 19, 2024 11:28 AM [facility] GLUCOSE,BLOOD-poct (STL) Specimen Type: BLOOD Comment: Test Performed by: [id number] Meter #: [id number] Ordering Provider: SILVIA REDDY Report Released Date/Time: Aug 19, 2024 11:51 AM Reporting Lab: [facility] [address] Performing Lab: [facility] [address] GLUCOSE,BLOOD- poct (STL) 190 mg/dL H Aug 19, 2024 05:21 AM [facility] GLUCOSE,BLOOD-poct (STL) Specimen Type: BLOOD Comment: Test Performed by: [id number] Meter #: [id number] Ordering Provider: SILVIA REDDY Report Released Date/Time: Aug 19, 2024 05:56 AM Reporting Lab: [facility] [address] Performing Lab: [facility] [address] GLUCOSE,BLOOD- poct (STL) 130 mg/dL H Aug 18, 2024 04:49 PM [facility] GLUCOSE,BLOOD-poct (STL) Specimen Type: BLOOD Comment: Test Performed by: [id number] Meter #: [id number] Ordering Provider: SILVIA REDDY Report Released Date/Time: Aug 18, 2024 05:01 PM Reporting Lab: [facility] [address] Performing Lab: [facility] [address] GLUCOSE,BLOOD- poct (STL) 129 mg/dL H Aug 18, 2024 11:23 AM [facility] GLUCOSE,BLOOD-poct (STL) Specimen Type: BLOOD Comment: Test Performed by: [id number] Meter #: [id number] Ordering Provider: SILVIA REDDY Report Released Date/Time: Aug 18, 2024 11:41 AM Reporting Lab: [facility] [address] Performing Lab: [facility] [address] GLUCOSE,BLOOD- poct (STL) 180 mg/dL H Aug 18, 2024 05:08 AM [facility] GLUCOSE,BLOOD-poct (STL) Specimen Type: BLOOD Comment: Test Performed by: [id number] Meter #: [id number] Ordering Provider: SILVIA REDDY Report Released Date/Time: Aug 18, 2024 05:31 AM Reporting Lab: [facility] [address] Performing Lab: [facility] [address] GLUCOSE,BLOOD- poct (STL) 127 mg/dL H -Aug 17, 2024 07:32 PM [facility] GLUCOSE,BLOOD-poct (STL) Specimen Type: BLOOD Comment: Test Performed by: [id number] Meter #: [id number] Ordering Provider: SILVIA REDDY Report Released Date/Time: Aug 17, 2024 07:59 PM Reporting Lab: [facility] [address] Performing Lab: [facility] [address] GLUCOSE,BLOOD- poct (STL) 154 mg/dL H -Aug 17, 2024 04:24 PM [facility] GLUCOSE,BLOOD-poct (STL) Specimen Type: BLOOD Comment: Test Performed by: [id number] Meter #: [id number] Ordering Provider: SILVIA REDDY Report Released Date/Time: Aug 17, 2024 04:35 PM Reporting Lab: [facility] [address] Performing Lab: [facility] [address] GLUCOSE,BLOOD- poct (STL) 178 mg/dL H -Aug 17, 2024 05:09 AM [facility] GLUCOSE,BLOOD-poct (STL) Specimen Type: BLOOD Comment: Test Performed by: [id number] Meter #: [id number] Ordering Provider: SILVIA REDDY Report Released Date/Time: Aug 17, 2024 05:54 AM Reporting Lab: [facility] [place] [address] Performing Lab: [facility] [address] GLUCOSE,BLOOD- poct (STL) 124 mg/dL H -Aug 16, 2024 07:40 PM [facility] GLUCOSE,BLOOD-poct (STL) Specimen Type: BLOOD Comment: Test Performed by: [id number] Meter #: [id number] Ordering Provider: SILVIA REDDY Report Released Date/Time: Aug 16, 2024 08:28 PM Reporting Lab: [facility] [address] Performing Lab: [facility] [address] GLUCOSE,BLOOD- poct (STL) 144 mg/dL H Aug 16, 2024 04:19 PM [facility] GLUCOSE,BLOOD-poct (STL) Specimen Type: BLOOD Comment: Test Performed by: [id number] Meter #: [id number] Ordering Provider: SILVIA REDDY Report Released Date/Time: Aug 16, 2024 04:45 PM Reporting Lab: [facility] [address] Performing Lab: [facility] [address] GLUCOSE,BLOOD- poct (STL) 138 mg/dL H Aug 16, 2024 11:52 AM [facility] GLUCOSE,BLOOD-poct (STL) Specimen Type: BLOOD Comment: Test Performed by: [id number] Meter #: [id number] Ordering Provider: SILVIA REDDY Report Released Date/Time: Aug 16, 2024 12:04 PM Reporting Lab: [facility] [address] Performing Lab: [facility] [address] GLUCOSE,BLOOD- poct (STL) 135 mg/dL H Aug 16, 2024 05:24 AM [facility] GLUCOSE,BLOOD-poct (STL) Specimen Type: BLOOD Comment: Test Performed by: [id number] Meter #: [id number] Ordering Provider: SILVIA REDDY Report Released Date/Time: Aug 16, 2024 05:38 AM Reporting Lab: [facility] [address] Performing Lab: [facility] [address] GLUCOSE,BLOOD- poct (STL) 151 mg/dL H Aug 15, 2024 07:31 PM [facility] GLUCOSE,BLOOD-poct (STL) Specimen Type: BLOOD Comment: Test Performed by: [id number] Meter #: [id number] Ordering Provider: SILVIA REDDY Report Released Date/Time: Aug 15, 2024 08:07 PM Reporting Lab: [facility] [address] Performing Lab: [facility] [address] GLUCOSE,BLOOD- poct (STL) 173 mg/dL H Aug 15, 2024 04:18 PM [facility] GLUCOSE,BLOOD-poct (STL) Specimen Type: BLOOD Comment: Test Performed by: [id number] Meter #: [id number] Ordering Provider: SILVIA REDDY Report Released Date/Time: Aug 15, 2024 04:59 PM Reporting Lab: [facility] [address] Performing Lab: [facility] [address] GLUCOSE,BLOOD- poct (STL) 136 mg/dL H Aug 15, 2024 04:16 PM [facility] GLUCOSE,BLOOD-poct (STL) Specimen Type: BLOOD Comment: Test Performed by: [id number] Meter #: [id number] Ordering Provider: SILVIA REDDY Report Released Date/Time: Aug 15, 2024 04:59 PM Reporting Lab: [facility] [address] Performing Lab: [facility] [address] GLUCOSE,BLOOD- poct (STL) 194 mg/dL H -Aug 15, 2024 11:39 AM [facility] GLUCOSE,BLOOD-poct (STL) Specimen Type: BLOOD Comment: Test Performed by: [id number] Meter #: [id number] Ordering Provider: SILVIA REDDY Report Released Date/Time: Aug 15, 2024 12:00 PM Reporting Lab: [facility] [address] Performing Lab: [facility] [address] GLUCOSE,BLOOD- poct (STL) 127 mg/dL H -Aug 15, 2024 05:07 AM [facility] GLUCOSE,BLOOD-poct (STL) Specimen Type: BLOOD Comment: Test Performed by: [id number] Meter #: [id number] Ordering Provider: SILVIA REDDY Report Released Date/Time: Aug 15, 2024 06:14 AM Reporting Lab: [facility] [address] Performing Lab: [facility] [address] GLUCOSE,BLOOD- poct (STL) 151 mg/dL H -Aug 14, 2024 04:22 PM [facility] GLUCOSE,BLOOD-poct (STL) Specimen Type: BLOOD Comment: Test Performed by: [id number] Meter #: [id number] Ordering Provider: SILVIA REDDY Report Released Date/Time: Aug 14, 2024 04:52 PM Reporting Lab: [facility] [place] [address] Performing Lab: [facility] [address] GLUCOSE,BLOOD- poct (STL) 129 mg/dL H 72-99 Aug 14, 2024 11:21 AM [facility] GLUCOSE,BLOOD-poct (STL) Specimen Type: BLOOD Comment: Test Performed by: [id number] Meter #: [id number] Ordering Provider: SILVIA REDDY Report Released Date/Time: Aug 14, 2024 11:37 AM Reporting Lab: [facility] [address] Performing Lab: [facility] [address] GLUCOSE,BLOOD- poct (STL) 135 mg/dL H 72-99 [...] For additional information, please refer to http://education. YouCastr/faq/NFE840 (This link is being provided for information/ educational purposes only.) Test Performed by [employer], [employer] [facility], [address] [place] [address] Tommie Garcia M.D., Ph.D., Director of Laboratories , [facility] [id number] Ordering Provider: SILVIA REDDY Report Released Date/Time: Aug 11, 2024 03:58 PM Reporting Lab: [facility] [address] [facility] [address] Performing Lab: [facility] [id number] [place] [address] .NIL - QUANTIFERON 0.04 [IU]/mL .MITOGEN-NIL 0.39 [IU]/mL .QUANTIFERON INDETERMINATE NEGATIVE .TB1-NIL <0.00 [IU]/mL .TB2-NIL <0.00 [IU]/mL Aug 14, 2024 06:59 AM [facility] MAGNESIUM Specimen Type: PLASMA Comment: No hemolysis noted. Ordering Provider: SILVIA REDDY Report Released Date/Time: Aug 11, 2024 03:58 PM Reporting Lab: [facility] [address] Performing Lab: [facility] [address] MAGNESIUM 1.9 mg/dL 1.6-2.6 Aug 14, 2024 06:59 AM [facility] B12 Specimen Type: SERUM No comment entered. Ordering Provider: SILVIA REDDY Report Released Date/Time: Aug 11, 2024 03:58 PM Reporting Lab: [facility] [address] Performing Lab: [facility] [address] B12 757 pg/mL 213-816 Aug 14, 2024 06:59 AM [facility] FOLATE (STL-MA) Specimen Type: SERUM No comment entered. Ordering Provider: SILVIA REDDY Report Released Date/Time: Aug 11, 2024 03:58 PM Reporting Lab: [facility] [address] Performing Lab: [facility] [address] FOLATE (STL-MA) 6.8 ng/mL L 7-20 Aug 14, 2024 06:59 AM [facility] VITAMIN D, 25-HYDROXY Specimen Type: SERUM No comment entered. Ordering Provider: SILVIA REDDY Report Released Date/Time: Aug 11, 2024 03:58 PM Reporting Lab: [facility] [address] Performing Lab: [facility] [address] VITAMIN D, 25-HYDROXY 8.9 ng/mL L 30-96 Aug 14, 2024 06:59 AM [facility] CBC Specimen Type: BLOOD No comment entered. Ordering Provider: SILVIA REDDY Report Released Date/Time: Aug 11, 2024 03:58 PM Reporting Lab: [facility] [address] Performing Lab: [facility] [address] WBC 4.1 10*3/uL 3.6-11.2 RBC 3.20 10*6/uL [...] 10*3/uL 0.00-0.20 Aug 14, 2024 06:59 AM [facility] COMPREHENSIVE METABOLIC PANEL Specimen Type: PLASMA Comment: No hemolysis noted. Ordering Provider: SILVIA REDDY Report Released Date/Time: Aug 11, 2024 03:58 PM Reporting Lab: [facility] [place] [phone] Performing Lab: [facility] [place] [phone] CREATININE 0.75 mg/dL 0.70-1.30 UREA NITROGEN 13.6 [...] 95.88 >60 Aug 14, 2024 05:08 AM [facility] GLUCOSE,BLOOD-poct (STL) Specimen Type: BLOOD Comment: Test Performed by: [id number] Meter #: [id number] Ordering Provider: SILVIA REDDY Report Released Date/Time: Aug 14, 2024 05:52 AM Reporting Lab: [facility] [address] Performing Lab: [facility] [address] GLUCOSE,BLOOD- poct (STL) 135 mg/dL H 72-99 Aug 13, 2024 04:27 PM [facility] GLUCOSE,BLOOD-poct (STL) Specimen Type: BLOOD Comment: Test Performed by: [id number] Meter #: [id number] Ordering Provider: SILVIA REDDY Report Released Date/Time: Aug 13, 2024 04:41 PM Reporting Lab: [facility] [address] Performing Lab: [facility] [address] GLUCOSE,BLOOD- poct (STL) 181 mg/dL H -Aug 13, 2024 11:33 AM [facility] GLUCOSE,BLOOD-poct (STL) Specimen Type: BLOOD Comment: Test Performed by: [id number] Meter #: [id number] Ordering Provider: SILVIA REDDY Report Released Date/Time: Aug 13, 2024 03:55 PM Reporting Lab: [facility] [address] Performing Lab: [facility] [place] [id number] GLUCOSE,BLOOD- poct (STL) 140 mg/dL H Aug 13, 2024 05:54 AM [facility] GLUCOSE,BLOOD-poct (STL) Specimen Type: BLOOD Comment: Test Performed by: [id number] Meter #: [id number] Ordering Provider: SILVIA REDDY Report Released Date/Time: Aug 13, 2024 06:20 AM Reporting Lab: [facility] [address] Performing Lab: [facility] [address] GLUCOSE,BLOOD- poct (STL) 112 mg/dL H Aug 12, 2024 04:35 PM [facility] GLUCOSE,BLOOD-poct (STL) Specimen Type: BLOOD Comment: Test Performed by: [id number] Meter #: [id number] Ordering Provider: SILVIA REDDY Report Released Date/Time: Aug 12, 2024 04:47 PM Reporting Lab: [facility] [address] Performing Lab: [facility] [address] GLUCOSE,BLOOD- poct (STL) 128 mg/dL H 72-99 Aug 12, 2024 11:26 AM [facility] GLUCOSE,BLOOD-poct (STL) Specimen Type: BLOOD Comment: Test Performed by: [id number] Meter #: [id number] Ordering Provider: SILVIA REDDY Report Released Date/Time: Aug 12, 2024 11:45 AM Reporting Lab: [facility] [address] Performing Lab: [facility] [address] GLUCOSE,BLOOD- poct (STL) 188 mg/dL H 72-Aug 12, 2024 06:13 AM [facility] GLUCOSE,BLOOD-poct (STL) Specimen Type: BLOOD Comment: Test Performed by: [id number] Meter #: [id number] Ordering Provider: SILVIA REDDY Report Released Date/Time: Aug 12, 2024 06:25 AM Reporting Lab: [facility] [address] Performing Lab: [facility] [address] GLUCOSE,BLOOD- poct (STL) 116 mg/dL H 72-99 Aug 11, 2024 04:10 PM [facility] GLUCOSE,BLOOD-poct (STL) Specimen Type: BLOOD Comment: Test Performed by: [id number] Meter #: [id number] Ordering Provider: SILVIA REDDY Report Released Date/Time: Aug 11, 2024 04:27 PM Reporting Lab: [facility] [place] [id number] Performing Lab: [facility] [address] GLUCOSE,BLOOD- poct (STL) 184 mg/dL H 72-99 Aug 11, 2024 01:44 PM [facility] MRSA SURVL NARES DNA Specimen Type: [...] 11, 2024 02:03 PM Reporting Lab: [address] [address] Performing Lab: [address] [address] MRSA SURVL NARES DNA Negative Negative Jul 20, 2024 11:18 AM [facility] APTT Specimen Type: PLASMA No comment entered. Ordering Provider: MANUEL BAIRD Report Released Date/Time: Jul 19, 2024 04:00 PM Reporting Lab: [address] [address] Performing Lab: [address] [address] APTT 32.1 s 26.7-39.9 Jul 20, 2024 11:18 AM [facility] PT/INR NEW (L-MT) Specimen Type: PLASMA No comment entered. Ordering Provider: MANUEL BAIRD Report Released Date/Time: Jul 19, 2024 04:00 PM Reporting Lab: [address] [address] Performing Lab: [address] [address] PROTIME 14.4 s H 9.4-12.5 INR VALUE 1.3 {INR} Jul 20, 2024 11:18 AM [facility] CBC Specimen Type: BLOOD No comment entered. Ordering Provider: MANUEL BAIRD Report Released Date/Time: Jul 19, 2024 04:00 PM Reporting Lab: [facility] [address] [facility] [address] Performing Lab: [facility] [address] [place] [address] WBC 4.7 10*3/uL 3.6-11.2 RBC 4.86 10*6/uL [...] 1.6 1.0-7.0 Jul 17, 2024 08:02 AM [facility] BASIC METABOLIC PANEL Specimen Type: PLASMA Comment: No hemolysis noted. Ordering Provider: MARY SERNA Report Released Date/Time: Jun 07, 2024 01:43 PM Reporting Lab: [facility] [address] [facility] [address] Performing Lab: [address] [address] CREATININE 0.85 mg/dL 0.7-1.3 UREA NITROGEN 15.2 [...] 97.8 68 122/76 18 96 0 [facility] Aug 15, 2024 03:23 PM 97.7 [facility] Aug 15, 2024 12:19 PM 0 [facility] Aug 15, 2024 10:00 AM 97.8 84 120/72 18 95 0 [facility] Aug 15, 2024 05:35 AM 98.1 80 115/67 20 95 [facility] Advance Directives: All historical and [...] DIRECTIVE DISCUSSION ERICK BARDALES [facility]
--- OUTSIDE RECORDS SUMMARY | 2024-11-17 04:12 | XMS_ITS | Encounter Summary ---
Author Name [facility] [place] [facility] [place] Address [address] [place] [address] Care Team Providers Care Pathology Laboratory Director Name Role Phone MANUEL THOMAS Primary Care [...] PART A Apr 08, 2017 PART A [id number] ASHLEY WALKER PATIENT Selected Encounter This section includes the information on record at CT for the Encounter. 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 This section includes future appointments and future orders which are active, pending or scheduled. Future Appointments This section includes appointments that were scheduled to occur 6 months from the date of the Encounter, up to a maximum of 20 appointments. The data comes from all [facility]. Appointment Date/Time Appointment Type Appointme nt Facility Name Aug 31, 2024 01:00 PM AMBULATORY - SURGERY [facility] Sep 21, 2024 01:30 PM AMBULATORY - MEDICINE [facility] Sep 22, 2024 11:00 AM AMBULATORY - MEDICINE [facility] Sep 29, 2024 12:30 PM AMBULATORY - MEDICINE [facility] Oct 02, 2024 09:30 AM AMBULATORY - MEDICINE [facility] Nov 20, 2024 10:30 AM AMBULATORY - SURGERY [facility] L [facility] Nov 21, 2024 10:00 AM AMBULATORY - NONE [facility] Dec 11, 2024 10:30 AM AMBULATORY - MEDICINE [facility] Active, Pending, and Scheduled Orders [...] The data comes from all [facility]. Test Date/Time Test Type Test Details Facility Name Aug 02, 2024 12:00 AM Laboratory - Chemistry Order CBC BLOOD STAT SP [facility] Aug 02, 2024 12:00 AM Laboratory - Chemistry Order COMPREHENSIVE METABOLIC PANEL GREEN LI/HEP BLD/PLAS PLASMA SP [facility] Aug 17, 2024 03:47 PM Consult Order [facility] Cons Bedside [facility] Lab Results: +/- 30 days [...] Range Comment Aug 23, 2024 08:21 AM [facility] MAGNESIUM Specimen Type: PLASMA No comment entered. Ordering Provider: SILVIA REDDY Report Released Date/Time: Aug 22, 2024 11:26 AM Reporting Lab: [facility] [address] Performing Lab: [facility] [address] MAGNESIUM 1.8 mg/dL 1.6-2.6 Aug 23, 2024 08:21 AM [facility] CBC Specimen Type: BLOOD No comment entered. Ordering Provider: SILVIA REDDY Report Released Date/Time: Aug 22, 2024 11:19 AM Reporting Lab: [facility] [address] Performing Lab: [facility] [address] WBC 4.0 10*3/uL 3.6-11.2 RBC 3.65 10*6/uL [...] 10*3/uL 0.00-0.20 Aug 23, 2024 05:12 AM [facility] GLUCOSE,BLOOD-poct (STL) Specimen Type: BLOOD Comment: Test Performed by: [id number] Meter #: [id number] Ordering Provider: SILVIA REDDY Report Released Date/Time: Aug 23, 2024 05:23 AM Reporting Lab: [facility] [address] Performing Lab: [facility] [address] GLUCOSE,BLOOD- poct (STL) 99 mg/dL 72-99 Aug 23, 2024 02:45 AM [facility] OCCULT BLOOD FIT X1 SCREEN Specimen Type: FECES No comment entered. Ordering Provider: SILVIA REDDY Report Released Date/Time: Aug 22, 2024 11:23 AM Reporting Lab: [facility] [address] [facility] [address] Performing Lab: [address] [address] OCCULT BLOOD (FIT) #1 OF 1 Negative Negative Aug 22, 2024 07:30 PM [facility] OCCULT BLOOD FIT X1 SCREEN Specimen Type: FECES No comment entered. Ordering Provider: SILVIA REDDY Report Released Date/Time: Aug 22, 2024 11:23 AM Reporting Lab: [facility] [address] [facility] [address] Performing Lab: [address] [address] OCCULT BLOOD (FIT) #1 OF 1 Negative Negative Aug 22, 2024 06:15 PM [facility] OCCULT BLOOD FIT X1 SCREEN Specimen Type: FECES No comment entered. Ordering Provider: SILVIA REDDY Report Released Date/Time: Aug 22, 2024 11:23 AM Reporting Lab: [facility] [address] [facility] [address] Performing Lab: [address] [address] OCCULT BLOOD (FIT) #1 OF 1 Negative Negative Aug 22, 2024 04:24 PM [facility] GLUCOSE,BLOOD-poct (STL) Specimen Type: BLOOD Comment: Test Performed by: [id number] Meter #: [id number] Ordering Provider: SILVIA REDDY Report Released Date/Time: Aug 22, 2024 04:36 PM Reporting Lab: [facility] [address] Performing Lab: [facility] [place] [address] GLUCOSE,BLOOD- poct (STL) 176 mg/dL H 72-99 Aug 22, 2024 04:23 PM [facility] GLUCOSE,BLOOD-poct (STL) Specimen Type: BLOOD Comment: Test Performed by: [id number] Meter #: [id number] Ordering Provider: SILVIA REDDY Report Released Date/Time: Aug 22, 2024 04:36 PM Reporting Lab: [facility] [place] [address] Performing Lab: [facility] [address] GLUCOSE,BLOOD- poct (STL) 221 mg/dL H 72-99 Aug 22, 2024 11:15 AM [facility] GLUCOSE,BLOOD-poct (STL) Specimen Type: BLOOD Comment: Test Performed by: [id number] Meter #: [id number] Ordering Provider: SILVIA REDDY Report Released Date/Time: Aug 22, 2024 11:27 AM Reporting Lab: [facility] [address] Performing Lab: [facility] [place] [phone] GLUCOSE,BLOOD- poct (STL) 140 mg/dL H 72-99 Aug 22, 2024 08:03 AM [facility] FERRITIN Specimen Type: SERUM No comment entered. Ordering Provider: JUDIT PERKINS Report Released Date/Time: Aug 18, 2024 11:01 AM Reporting Lab: [facility] [address] [facility] [address] Performing Lab: [facility] [address] [facility] [address] FERRITIN 79.50 ng/mL 22-275 Aug 22, 2024 08:03 AM [facility] IRON/TIBC PROFILE Specimen Type: SERUM No comment entered. Ordering Provider: JUDIT PERKINS Report Released Date/Time: Aug 18, 2024 11:01 AM Reporting Lab: [facility] [address] [facility] [address] Performing Lab: [facility] [address] [facility] [address] TIBC 283 ug/dL 250-450 TRANSFERRIN 226 mg/dL 163-344 IRON SATURATION 7 L 20-50 IRON 19 ug/dL L 65-175 Aug 22, 2024 08:03 AM [facility] B12 Specimen Type: SERUM No comment entered. Ordering Provider: JUDIT PERKINS Report Released Date/Time: Aug 18, 2024 11:01 AM Reporting Lab: [facility] [address] Performing Lab: [facility] [address] B12 631 pg/mL 213-816 Aug 22, 2024 08:03 AM [facility] COMPREHENSIVE METABOLIC PANEL Specimen Type: PLASMA Comment: No hemolysis noted. Ordering Provider: SILVIA REDDY Report Released Date/Time: Aug 17, 2024 01:18 PM Reporting Lab: [facility] [address] [facility] [address] Performing Lab: [facility] [address] [place] [address] CREATININE 0.80 mg/dL 0.7-1.3 UREA NITROGEN 9.7 [...] 94.0 >60 Aug 22, 2024 08:03 AM [facility] CBC Specimen Type: BLOOD No comment entered. Ordering Provider: SILVIA REDDY Report Released Date/Time: Aug 17, 2024 01:18 PM Reporting Lab: [facility] [address] Performing Lab: [facility] [address] WBC 3.5 10*3/uL L 3.6-11.2 RBC 3.23 [...] NRBC% 0 Aug 22, 2024 05:03 AM [facility] GLUCOSE,BLOOD-poct (STL) Specimen Type: BLOOD Comment: Test Performed by: [id number] Meter #: [id number] Ordering Provider: SILVIA REDDY Report Released Date/Time: Aug 22, 2024 06:17 AM Reporting Lab: [facility] [address] Performing Lab: [facility] [place] [address] GLUCOSE,BLOOD- poct (STL) 170 mg/dL H 72-Aug 21, 2024 04:32 PM [facility] GLUCOSE,BLOOD-poct (STL) Specimen Type: BLOOD Comment: Test Performed by: [id number] Meter #: [id number] Ordering Provider: SILVIA REDDY Report Released Date/Time: Aug 21, 2024 04:49 PM Reporting Lab: [facility] [address] Performing Lab: [facility] [address] GLUCOSE,BLOOD- poct (STL) 169 mg/dL H 72-Aug 21, 2024 11:53 AM [facility] GLUCOSE,BLOOD-poct (STL) Specimen Type: BLOOD Comment: Test Performed by: [id number] Meter #: [id number] Ordering Provider: SILVIA REDDY Report Released Date/Time: Aug 21, 2024 12:11 PM Reporting Lab: [facility] [address] Performing Lab: [facility] [address] GLUCOSE,BLOOD- poct (STL) 149 mg/dL H 72-99 Aug 21, 2024 05:10 AM [facility] GLUCOSE,BLOOD-poct (STL) Specimen Type: BLOOD Comment: Test Performed by: [id number] Meter #: [id number] Ordering Provider: SILVIA REDDY Report Released Date/Time: Aug 21, 2024 05:27 AM Reporting Lab: [facility] [address] Performing Lab: [facility] [address] GLUCOSE,BLOOD- poct (STL) 118 mg/dL H 72-Aug 20, 2024 04:38 PM [facility] GLUCOSE,BLOOD-poct (STL) Specimen Type: BLOOD Comment: Test Performed by: [id number] Meter #: [id number] Ordering Provider: SILVIA REDDY Report Released Date/Time: Aug 21, 2024 01:55 AM Reporting Lab: [facility] [address] Performing Lab: [facility] [address] GLUCOSE,BLOOD- poct (STL) 169 mg/dL H -Aug 20, 2024 04:36 PM [facility] GLUCOSE,BLOOD-poct (STL) Specimen Type: BLOOD Comment: Test Performed by: [id number] Meter #: [id number] Ordering Provider: SILVIA REDDY Report Released Date/Time: Aug 21, 2024 01:55 AM Reporting Lab: [facility] [address] Performing Lab: [facility] [address] GLUCOSE,BLOOD- poct (STL) 395 mg/dL H 72-Aug 20, 2024 11:45 AM [facility] GLUCOSE,BLOOD-poct (STL) Specimen Type: BLOOD Comment: Test Performed by: [id number] Meter #: [id number] Ordering Provider: SILVIA REDDY Report Released Date/Time: Aug 20, 2024 11:56 AM Reporting Lab: [facility] [address] Performing Lab: [facility] [address] GLUCOSE,BLOOD- poct (STL) 169 mg/dL H 72-99 Aug 20, 2024 05:06 AM [facility] GLUCOSE,BLOOD-poct (STL) Specimen Type: BLOOD Comment: Test Performed by: [id number] Meter #: [id number] Ordering Provider: SILVIA REDDY Report Released Date/Time: Aug 20, 2024 06:05 AM Reporting Lab: [facility] [address] Performing Lab: [facility] [address] GLUCOSE,BLOOD- poct (STL) 115 mg/dL H 72-Aug 19, 2024 04:23 PM [facility] GLUCOSE,BLOOD-poct (STL) Specimen Type: BLOOD Comment: Test Performed by: [id number] Meter #: [id number] Ordering Provider: SILVIA REDDY Report Released Date/Time: Aug 19, 2024 05:54 PM Reporting Lab: [facility] [address] Performing Lab: [facility] [address] GLUCOSE,BLOOD- poct (STL) 137 mg/dL H 72-99 Aug 19, 2024 11:28 AM [facility] GLUCOSE,BLOOD-poct (STL) Specimen Type: BLOOD Comment: Test Performed by: [id number] Meter #: [id number] Ordering Provider: SILVIA REDDY Report Released Date/Time: Aug 19, 2024 11:51 AM Reporting Lab: [facility] [place] [address] Performing Lab: [facility] [address] GLUCOSE,BLOOD- poct (STL) 190 mg/dL H Aug 19, 2024 05:21 AM [facility] GLUCOSE,BLOOD-poct (STL) Specimen Type: BLOOD Comment: Test Performed by: [id number] Meter #: [id number] Ordering Provider: SILVIA REDDY Report Released Date/Time: Aug 19, 2024 05:56 AM Reporting Lab: [facility] [address] Performing Lab: [facility] [address] GLUCOSE,BLOOD- poct (STL) 130 mg/dL H Aug 18, 2024 04:49 PM [facility] GLUCOSE,BLOOD-poct (STL) Specimen Type: BLOOD Comment: Test Performed by: [id number] Meter #: [id number] Ordering Provider: SILVIA REDDY Report Released Date/Time: Aug 18, 2024 05:01 PM Reporting Lab: [facility] [address] Performing Lab: [facility] [address] GLUCOSE,BLOOD- poct (STL) 129 mg/dL H Aug 18, 2024 11:23 AM [facility] GLUCOSE,BLOOD-poct (STL) Specimen Type: BLOOD Comment: Test Performed by: [id number] Meter #: [id number] Ordering Provider: SILVIA REDDY Report Released Date/Time: Aug 18, 2024 11:41 AM Reporting Lab: [facility] [address] Performing Lab: [facility] [address] GLUCOSE,BLOOD- poct (STL) 180 mg/dL H Aug 18, 2024 05:08 AM [facility] GLUCOSE,BLOOD-poct (STL) Specimen Type: BLOOD Comment: Test Performed by: [id number] Meter #: [id number] Ordering Provider: SILVIA REDDY Report Released Date/Time: Aug 18, 2024 05:31 AM Reporting Lab: [facility] [address] Performing Lab: [facility] [address] GLUCOSE,BLOOD- poct (STL) 127 mg/dL H -Aug 17, 2024 07:32 PM [facility] GLUCOSE,BLOOD-poct (STL) Specimen Type: BLOOD Comment: Test Performed by: [id number] Meter #: [id number] Ordering Provider: SILVIA REDDY Report Released Date/Time: Aug 17, 2024 07:59 PM Reporting Lab: [facility] [address] Performing Lab: [facility] [address] GLUCOSE,BLOOD- poct (STL) 154 mg/dL H Aug 17, 2024 04:24 PM [facility] GLUCOSE,BLOOD-poct (STL) Specimen Type: BLOOD Comment: Test Performed by: [id number] Meter #: [id number] Ordering Provider: SILVIA REDDY Report Released Date/Time: Aug 17, 2024 04:35 PM Reporting Lab: [facility] [address] Performing Lab: [facility] [address] GLUCOSE,BLOOD- poct (STL) 178 mg/dL H Aug 17, 2024 05:09 AM [facility] GLUCOSE,BLOOD-poct (STL) Specimen Type: BLOOD Comment: Test Performed by: [id number] Meter #: [id number] Ordering Provider: SILVIA REDDY Report Released Date/Time: Aug 17, 2024 05:54 AM Reporting Lab: [facility] [address] Performing Lab: [facility] [address] GLUCOSE,BLOOD- poct (STL) 124 mg/dL H 72-Aug 16, 2024 07:40 PM [facility] GLUCOSE,BLOOD-poct (STL) Specimen Type: BLOOD Comment: Test Performed by: [id number] Meter #: [id number] Ordering Provider: SILVIA REDDY Report Released Date/Time: Aug 16, 2024 08:28 PM Reporting Lab: [facility] [address] Performing Lab: [facility] [address] GLUCOSE,BLOOD- poct (STL) 144 mg/dL H -Aug 16, 2024 04:19 PM [facility] GLUCOSE,BLOOD-poct (STL) Specimen Type: BLOOD Comment: Test Performed by: [id number] Meter #: [id number] Ordering Provider: SILVIA REDDY Report Released Date/Time: Aug 16, 2024 04:45 PM Reporting Lab: [facility] [address] Performing Lab: [facility] [address] GLUCOSE,BLOOD- poct (STL) 138 mg/dL H 72-Aug 16, 2024 11:52 AM [facility] GLUCOSE,BLOOD-poct (STL) Specimen Type: BLOOD Comment: Test Performed by: [id number] Meter #: [id number] Ordering Provider: SILVIA REDDY Report Released Date/Time: Aug 16, 2024 12:04 PM Reporting Lab: [facility] [address] Performing Lab: [facility] [address] GLUCOSE,BLOOD- poct (STL) 135 mg/dL H -Aug 16, 2024 05:24 AM [facility] GLUCOSE,BLOOD-poct (STL) Specimen Type: BLOOD Comment: Test Performed by: [id number] Meter #: [id number] Ordering Provider: SILVIA REDDY Report Released Date/Time: Aug 16, 2024 05:38 AM Reporting Lab: [facility] [address] Performing Lab: [facility] [address] GLUCOSE,BLOOD- poct (STL) 151 mg/dL H Aug 15, 2024 07:31 PM [facility] GLUCOSE,BLOOD-poct (STL) Specimen Type: BLOOD Comment: Test Performed by: [id number] Meter #: [id number] Ordering Provider: SILVIA REDDY Report Released Date/Time: Aug 15, 2024 08:07 PM Reporting Lab: [facility] [address] Performing Lab: [facility] [address] GLUCOSE,BLOOD- poct (STL) 173 mg/dL H Aug 15, 2024 04:18 PM [facility] GLUCOSE,BLOOD-poct (STL) Specimen Type: BLOOD Comment: Test Performed by: [id number] Meter #: [id number] Ordering Provider: SILVIA REDDY Report Released Date/Time: Aug 15, 2024 04:59 PM Reporting Lab: [facility] [address] Performing Lab: [facility] [address] GLUCOSE,BLOOD- poct (STL) 136 mg/dL H Aug 15, 2024 04:16 PM [facility] GLUCOSE,BLOOD-poct (STL) Specimen Type: BLOOD Comment: Test Performed by: [id number] Meter #: [id number] Ordering Provider: SILVIA REDDY Report Released Date/Time: Aug 15, 2024 04:59 PM Reporting Lab: [facility] [address] Performing Lab: [facility] [address] GLUCOSE,BLOOD- poct (STL) 194 mg/dL H -Aug 15, 2024 11:39 AM [facility] GLUCOSE,BLOOD-poct (STL) Specimen Type: BLOOD Comment: Test Performed by: [id number] Meter #: [id number] Ordering Provider: SILVIA REDDY Report Released Date/Time: Aug 15, 2024 12:00 PM Reporting Lab: [facility] [address] Performing Lab: [facility] [address] GLUCOSE,BLOOD- poct (STL) 127 mg/dL H -Aug 15, 2024 05:07 AM [facility] GLUCOSE,BLOOD-poct (STL) Specimen Type: BLOOD Comment: Test Performed by: [id number] Meter #: [id number] Ordering Provider: SILVIA REDDY Report Released Date/Time: Aug 15, 2024 06:14 AM Reporting Lab: [facility] [address] Performing Lab: [facility] [address] GLUCOSE,BLOOD- poct (STL) 151 mg/dL H -Aug 14, 2024 04:22 PM [facility] GLUCOSE,BLOOD-poct (STL) Specimen Type: BLOOD Comment: Test Performed by: [id number] Meter #: [id number] Ordering Provider: SILVIA REDDY Report Released Date/Time: Aug 14, 2024 04:52 PM Reporting Lab: [facility] [address] Performing Lab: [facility] [address] GLUCOSE,BLOOD- poct (STL) 129 mg/dL H 72-99 Aug 14, 2024 11:21 AM [facility] GLUCOSE,BLOOD-poct (STL) Specimen Type: BLOOD Comment: Test Performed by: [id number] Meter #: [id number] Ordering Provider: SILVIA REDDY Report Released Date/Time: Aug 14, 2024 11:37 AM Reporting Lab: [facility] [address] Performing Lab: [facility] [address] GLUCOSE,BLOOD- poct (STL) 135 mg/dL H 72-Aug 14, 2024 06:59 AM [facility] QUANTIFERON-TB,4 TUBE Specimen Type: BLOOD [...] For additional information, please refer to http://education. [employer]. [employer]/faq/XCU633 (This link is being provided for information/ educational purposes only.) Test Performed by [facility], [facility], [address] [place], [place] Tommie Garcia M.D., Ph.D., Director of Laboratories , [facility] [id number] Ordering Provider: SILVIA REDDY Report Released Date/Time: Aug 11, 2024 03:58 PM Reporting Lab: [facility] [address] [facility] [id number] Performing Lab: [facility] [address] [facility] .NIL - QUANTIFERON 0.04 [IU]/mL .MITOGEN-NIL 0.39 [IU]/mL .QUANTIFERON INDETERMINATE NEGATIVE .TB1-NIL <0.00 [IU]/mL .TB2-NIL <0.00 [IU]/mL Aug 14, 2024 06:59 AM [facility] B12 Specimen Type: SERUM No comment entered. Ordering Provider: SILVIA REDDY Report Released Date/Time: Aug 11, 2024 03:58 PM Reporting Lab: [facility] [address] [facility] [phone] Performing Lab: [facility] [facility] [id number] B12 757 pg/mL [phone] Aug 14, 2024 06:59 AM [facility] FOLATE (STL-MA) Specimen Type: SERUM No comment entered. Ordering Provider: SILVIA REDDY Report Released Date/Time: Aug 11, 2024 03:58 PM Reporting Lab: [facility] [facility] [id number] Performing Lab: [facility] [facility] [id number] FOLATE (STL-MA) 6.8 ng/mL L 7-20 Aug 14, 2024 06:59 AM [facility] MAGNESIUM Specimen Type: PLASMA Comment: No hemolysis noted. Ordering Provider: SILVIA REDDY Report Released Date/Time: Aug 11, 2024 03:58 PM Reporting Lab: [facility] [place] [phone] Performing Lab: [facility] [place] [phone] MAGNESIUM 1.9 mg/dL 1.6-2.6 Aug 14, 2024 06:59 AM [facility] VITAMIN D, 25-HYDROXY Specimen Type: SERUM No comment entered. Ordering Provider: SILVIA REDDY Report Released Date/Time: Aug 11, 2024 03:58 PM Reporting Lab: [facility] [place] [id number] Performing Lab: [facility] [place] [address] VITAMIN D, 25-HYDROXY 8.9 ng/mL L 30-96 Aug 14, 2024 06:59 AM [facility] COMPREHENSIVE METABOLIC PANEL Specimen Type: PLASMA Comment: No hemolysis noted. Ordering Provider: SILVIA REDDY Report Released Date/Time: Aug 11, 2024 03:58 PM Reporting Lab: [facility] [place] [phone] Performing Lab: [facility] [place] [address] CREATININE 0.75 mg/dL 0.70-1.30 UREA NITROGEN 13.6 [...] 95.88 >60 Aug 14, 2024 06:59 AM [facility] CBC Specimen Type: BLOOD No comment entered. Ordering Provider: SILVIA REDDY Report Released Date/Time: Aug 11, 2024 03:58 PM Reporting Lab: [facility] [phone] Performing Lab: [facility] [address] WBC 4.1 10*3/uL 3.6-11.2 RBC 3.20 10*6/uL [...] 10*3/uL 0.00-0.20 Aug 14, 2024 05:08 AM [facility] GLUCOSE,BLOOD-poct (STL) Specimen Type: BLOOD Comment: Test Performed by: [id number] Meter #: [id number] Ordering Provider: SILVIA REDDY Report Released Date/Time: Aug 14, 2024 05:52 AM Reporting Lab: [facility] [phone] Performing Lab: [facility] [phone] GLUCOSE,BLOOD- poct (STL) 135 mg/dL H 72-99 Aug 13, 2024 04:27 PM [facility] GLUCOSE,BLOOD-poct (STL) Specimen Type: BLOOD Comment: Test Performed by: [id number] Meter #: [id number] Ordering Provider: SILVIA REDDY Report Released Date/Time: Aug 13, 2024 04:41 PM Reporting Lab: [facility] [phone] Performing Lab: [facility] [address] GLUCOSE,BLOOD- poct (STL) 181 mg/dL H Aug 13, 2024 11:33 AM [facility] GLUCOSE,BLOOD-poct (STL) Specimen Type: BLOOD Comment: Test Performed by: [id number] Meter #: [id number] Ordering Provider: SILVIA REDDY Report Released Date/Time: Aug 13, 2024 03:55 PM Reporting Lab: [facility] [address] Performing Lab: [facility] [address] GLUCOSE,BLOOD- poct (STL) 140 mg/dL H Aug 13, 2024 05:54 AM [facility] GLUCOSE,BLOOD-poct (STL) Specimen Type: BLOOD Comment: Test Performed by: [id number] Meter #: [id number] Ordering Provider: SILVIA REDDY Report Released Date/Time: Aug 13, 2024 06:20 AM Reporting Lab: [facility] [phone] Performing Lab: [facility] [phone] GLUCOSE,BLOOD- poct (STL) 112 mg/dL H Aug 12, 2024 04:35 PM [facility] GLUCOSE,BLOOD-poct (STL) Specimen Type: BLOOD Comment: Test Performed by: [id number] Meter #: [id number] Ordering Provider: SILVIA REDDY Report Released Date/Time: Aug 12, 2024 04:47 PM Reporting Lab: [facility] [place] [address] Performing Lab: [facility] [place] [address] GLUCOSE,BLOOD- poct (STL) 128 mg/dL H 72-Aug 12, 2024 11:26 AM [facility] GLUCOSE,BLOOD-poct (STL) Specimen Type: BLOOD Comment: Test Performed by: [id number] Meter #: [id number] Ordering Provider: SILVIA REDDY Report Released Date/Time: Aug 12, 2024 11:45 AM Reporting Lab: [facility] [place] [address] Performing Lab: [facility] [place] [address] GLUCOSE,BLOOD- poct (STL) 188 mg/dL H 72-Aug 12, 2024 06:13 AM [facility] GLUCOSE,BLOOD-poct (STL) Specimen Type: BLOOD Comment: Test Performed by: [id number] Meter #: [id number] Ordering Provider: SILVIA REDDY Report Released Date/Time: Aug 12, 2024 06:25 AM Reporting Lab: [facility] [place] [address] Performing Lab: [facility] [place] [address] GLUCOSE,BLOOD- poct (STL) 116 mg/dL H 72-Aug 11, 2024 04:10 PM [facility] GLUCOSE,BLOOD-poct (STL) Specimen Type: BLOOD Comment: Test Performed by: [id number] Meter #: [id number] Ordering Provider: SILVIA REDDY Report Released Date/Time: Aug 11, 2024 04:27 PM Reporting Lab: [facility] [address] Performing Lab: [facility] [address] GLUCOSE,BLOOD- poct (STL) 184 mg/dL H 72-99 Aug 11, 2024 01:44 PM [facility] MRSA SURVL NARES [...] 11, 2024 02:03 PM Reporting Lab: [facility] [address] [facility] [address] Performing Lab: [facility] [address] [facility] [address] MRSA SURVL NARES DNA Negative Negative Social History: Smoking Status (Most current) and Tobacco Use (All prior to encounter date) This section includes the most current, and the historical, smoking and tobacco- related health factors from the [facility] where the Encounter took place. Current Smoking Status This section includes the most current smoking, or tobacco-related health factor, from the [place] facility where the Encounter took place. Date/Time Current Smoking Status Comment Radhika ity March 16, 2024 09:[address]-TOBACCO FORMER USER [facility] Tobacco Use History This section includes a history of the smoking, or tobacco-related health factors, that were collected on or before the date of the Encounter. The data comes from the [place] facility where the Encounter took place. Date/Time Smoking Status/Tobacco Use Comment F acmichael March 16, 2024 09:[address]-TOBACCO QUIT 15 YRS OR MORE [facility] March 22, 2023 10:[address]-TOBACCO FORMER USER [facility] March 22, 2023 10:[address]-TOBACCO QUIT 15 YRS OR MORE [facility] Jan 29, 2022 03:00 PM [place]-TOBACCO FORMER USER [facility] Jan 29, 2022 03:00 PM VA-TOBACCO QUIT 15 YRS OR MORE [facility] Feb 07, 2019 04:17 PM VA-TOBACCO FORMER USER [facility] Feb 07, 2019 04:17 PM VA-TOBACCO QUIT 15 YRS OR MORE [facility] March 09, 2018 12:36 PM QUIT TOBACCO >7 YEARS AGO [facility] Aug 05, 2017 02:36 PM QUIT TOBACCO >7 YEARS AGO [facility] Advance Directives: All historical and [...] 2017 ADVANCE DIRECTIVE DISCUSSION ERICK BARDALES [facility] Encounter Notes: All associated encounter notes This section contains the clinical notes associated to the Encounter. Date/Time Encounter Note(s) Provider Source Aug 30, 2024 10:09 AM ADDENDUM: LOCAL TITLE: Addendum STANDARD TITLE: ADDENDUM DATE OF NOTE: AUG 30, 2024@10:09:34 ENTRY DATE: AUG 30, 2024@10:09:35 AUTHOR: REED COLLADO EXP COSIGNER: URGENCY: STATUS: COMPLETED NonVA ER visit: unable to see any data in JLV. Vet reports he went for an easy walk yesterday, ordered pizza and ate 1/2 of it. Started to have lower belly pain that radiated to his back. Went to ER, diagnosis was cholecystitis and given Augmentin. Will alert PACT team for information. /shen/ PHARM. WILLISD., [facility] CLINICAL PHARMACIST Signed: 08/30/2024 10:09 Receipt Acknowledged By: 09/01/2024 15:59 /camryn HALL REGISTERED NURSE 09/04/2024 11:32 /shen/ manuel thomas M.D. Staff Physician --- Original Document --- 08/30/24 PACT PHARMACIST TELEPHONE STL: CLINICAL PHARMACY TELEPHONE FOLLOW-UP Pt was verified by full name and . CHET WALKER is a 74 yo, DECLINED TO ANSWER, MALE contacted by phone by clinical pharmacy for DM management. During the last contact with jana, the following changes were made: --Continue metformin SA 750mg daily. --Please new pretty Potter is currently taking the following DM medications: --metformin SA 750mg daily holding due to CT DM medication adherence: yes Allergies/ADR's: TRAMADOL Subjective: [-] hypoglycemia symptoms or values <80 mg/dL [-] hyperglycemia symptoms [+] Dietary modifications made --eating more and bad things, like spaghetti and meatballs, pizza [-] Changes in lifestyle or social history --Went for a walk with his walker (+) pain in lower stomach, and into his back, right side. Went to nonVA ER and was told he inflammation gallbladder. Was given some pain meds and antibiotics --Spoke to pts son (Gil), states he ate too much pizza and sat on the toilet and was trying to puke, and he thinks he pulled a muscle. NonVA meds given 1. Augmentin 875/125mg 1 tab q12 hr x 10 days NonVA Paperwork --Acute coronary syndrome --non specific chest pain, adult --Cholecystitis Objective: HGA1C 7.0 H % 03/06/2024 09:52 SODIUM 138 mEq/L 08/22/2024 06:00 POTASSIUM 3.6 mEq/L 08/22/2024 06:00 CHLORIDE 105 mEq/L 08/22/2024 06:00 UREA NITROGEN 9.7 mg/dL 08/22/2024 06:00 CREATININE 0.80 mg/dL 08/22/2024 06:00 CALCIUM 8.7 mg/dL 08/22/2024 06:00 CARBON DIOXIDE 23 mEq/L 08/22/2024 06:00 GLUCOSE 135 H mg/dL 08/22/2024 06:00 EGFR (CKD-EPI 2020) 94.0 08/22/2024 06:00 Estimated CrCl ml/min CREATuF: 163.4 (06/09/24 11:48) M/CREAT: 103 (06/09/24 11:48) MICRAL: 167.5 (06/09/24 11:48) SGOT 33 U/L (08/22/24 06:00) SGPT 22 U/L (08/22/24 06:00) BP last visit 124/62 (08/23/2024 05:19) Pretty Personal - Glucose Pattern Summary 7 days 7 day info Avg Glucose: 130 12am-6am 131 6am-12pm 123 12pm-6pm 129 6pm-12am 138 Time in Target: Above 180 mg/dL: 4% In Target Range (70-180 mg/dL): 96% Below 70 mg/dL: 0% Sensor Usage: 86 % Daily scans: 20 low glucose events total 0 12am-6am 6am-12pm [...] <1% Below 54 mg/dL: NONE %CV <=36% Meds prior to Inpt stay --metformin SA 500mg 2 tabs BID , GFR >60 --semaglutide 1mg once a week. --Toujeo 300 units/ml 90 units daily --aspart 6 units before dinner --In the past had reports h/o genital fungal infections, now denies, can consider SGLT2i Assessment/Plan: 1) Diabetes Goal A1c <7-8%, FBG 80-130, post-prandial BG <180, per [place] guidelines --Controlled per recent A1c. Pt has been inpt post CABG and medication requirements decreased. Only on metformin since d/c 1 week ago. CGM for the last week shows TIR and average glucose at goals. --Continue/restart metformin SA 750mg daily in 48 hours --Instructed vet to check SMBGs using Abcodia maintenance (+)ASA (+)MELONIE/ARB (+)Statin ()Podiatry (+)Optho May 2024 Diabetes without retinopathy, OU - Hx of Mild NPDR OS - No DME/CSME on clinical examination 2) NonVA ER visit: unable to see any data in JLV. Vet reports he went for an easy walk yesterday, ordered pizza and ate 1/2 of it. Started to have lower belly pain that radiated to his back. Went to ER, diagnosis was cholecystitis and given Augmentin. Will alert PACT team for information. -Educated vet on risks/benefits of new medication. -Education provided on nonpharmacologic ways to improve DM (including lifestyle management/dietary/physical activity) specific for the vet's needs. -Harrah verbalized understanding to all plans discussed today. Questions were answered to vet's satisfaction. Time spent on phone with vet: 30 minutes RTC: 09/21 as planned via phone PBM PharmD Pharmacotherapy Rem V12: PHARMACIST INTERVENTIONS: TYPE 2 DIABETES MELLITUS Medication monitoring, no dosage change required, continue to monitor and assess /es/ REED COLLADO, PHARM.D., [facility] CLINICAL PHARMACIST Signed: 08/30/2024 10:09 09/01/2024 ADDENDUM STATUS: COMPLETED per 08/30/24 CC bernadine self present care coordination note Patient left AMA, re-presented to same ER the following day, and is currently hospitalized. Records r/t this episode of care received; sent to [facility] for scanning. Alerting PCP team to this note for continuity of care. /shen/ CHARITY HALL REGISTERED NURSE Signed: 09/01/2024 16:00 REED COLLADO [facility] Aug 30, 2024 09:49 AM PHARMACY TELEPHONE ENCOUNTER NOTE: LOCAL TITLE: PACT PHARMACIST TELEPHONE STL STANDARD TITLE: PHARMACY TELEPHONE ENCOUNTER NOTE DATE OF NOTE: AUG 30, 2024@09:49 ENTRY DATE: AUG 30, 2024@09:49:18 AUTHOR: REED COLLADO EXP COSIGNER: URGENCY: STATUS: COMPLETED PACT PHARMACIST TELEPHONE STL Has ADDENDA CLINICAL PHARMACY TELEPHONE FOLLOW-UP Pt was verified by full name and . CHET WALKER is a 74 yo, DECLINED TO ANSWER, MALE contacted by phone by clinical pharmacy for DM management. During the last contact with jana, the following changes were made: --Continue metformin SA 750mg daily. --Please new pretty Potter is currently taking the following DM medications: --metformin SA 750mg daily holding due to CT DM medication adherence: yes Allergies/ADR's: TRAMADOL Subjective: [-] hypoglycemia symptoms or values <80 mg/dL [-] hyperglycemia symptoms [+] Dietary modifications made --eating more and bad things, like spaghetti and meatballs, pizza [-] Changes in lifestyle or social history --Went for a walk with his walker (+) pain in lower stomach, and into his back, right side. Went to nonVA ER and was told he inflammation gallbladder. Was given some pain meds and antibiotics --Spoke to pts son (Gil), states he ate too much pizza and sat on the toilet and was trying to puke, and he thinks he pulled a muscle. NonVA meds given 1. Augmentin 875/125mg 1 tab q12 hr x 10 days NonVA Paperwork --Acute coronary syndrome --non specific chest pain, adult --Cholecystitis Objective: HGA1C 7.0 H % 03/06/2024 09:52 SODIUM 138 mEq/L 08/22/2024 06:00 POTASSIUM 3.6 mEq/L 08/22/2024 06:00 CHLORIDE 105 mEq/L 08/22/2024 06:00 UREA NITROGEN 9.7 mg/dL 08/22/2024 06:00 CREATININE 0.80 mg/dL 08/22/2024 06:00 CALCIUM 8.7 mg/dL 08/22/2024 06:00 CARBON DIOXIDE 23 mEq/L 08/22/2024 06:00 GLUCOSE 135 H mg/dL 08/22/2024 06:00 EGFR (CKD-EPI 2020) 94.0 08/22/2024 06:00 Estimated CrCl ml/min CREATuF: 163.4 (06/09/24 11:48) M/CREAT: 103 (06/09/24 11:48) MICRAL: 167.5 (06/09/24 11:48) SGOT 33 U/L (08/22/24 06:00) SGPT 22 U/L (08/22/24 06:00) BP last visit 124/62 (08/23/2024 05:19) Pretty Personal - Glucose Pattern Summary 7 days 7 day info Avg Glucose: 130 12am-6am 131 6am-12pm 123 12pm-6pm 129 6pm-12am 138 Time in Target: Above 180 mg/dL: 4% In Target Range (70-180 mg/dL): 96% Below 70 mg/dL: 0% Sensor Usage: 86 % Daily scans: 20 low glucose events total 0 12am-6am 6am-12pm [...] <1% Below 54 mg/dL: NONE %CV <=36% Meds prior to Inpt stay --metformin SA 500mg 2 tabs BID , GFR >60 --semaglutide 1mg once a week. --Toujeo 300 units/ml 90 units daily --aspart 6 units before dinner --In the past had reports h/o genital fungal infections, now denies, can consider SGLT2i Assessment/Plan: 1) Diabetes Goal A1c <7-8%, FBG 80-130, post-prandial BG <180, per [place] guidelines --Controlled per recent A1c. Pt has been inpt post CABG and medication requirements decreased. Only on metformin since d/c 1 week ago. CGM for the last week shows TIR and average glucose at goals. --Continue/restart metformin SA 750mg daily in 48 hours --Instructed vet to check SMBGs using [employer] DM Health maintenance (+)ASA (+)MELONIE/ARB (+)Statin ()Podiatry (+)Optho May 2024 Diabetes without retinopathy, OU - Hx of Mild NPDR OS - No DME/CSME on clinical examination 2) NonVA ER visit: unable to see any data in JLV. Vet reports he went for an easy walk yesterday, ordered pizza and ate 1/2 of it. Started to have lower belly pain that radiated to his back. Went to ER, diagnosis was cholecystitis and given Augmentin. Will alert PACT team for information. -Educated vet on risks/benefits of new medication. -Education provided on nonpharmacologic ways to improve DM (including lifestyle management/dietary/physical activity) specific for the vet's needs. -Harrah verbalized understanding to all plans discussed today. Questions were answered to vet's satisfaction. Time spent on phone with vet: 30 minutes RTC: 09/21 as planned via phone PBM PharmD Pharmacotherapy Rem V12: PHARMACIST INTERVENTIONS: TYPE 2 DIABETES MELLITUS Medication monitoring, no dosage change required, continue to monitor and assess /camryn COLLADO PHARM.D., [facility] CLINICAL PHARMACIST Signed: 08/30/2024 10:09 08/30/2024 ADDENDUM STATUS: COMPLETED NonVA ER visit: unable to see any data in JLV. Vet reports he went for an easy walk yesterday, ordered pizza and ate 1/2 of it. Started to have lower belly pain that radiated to his back. Went to ER, diagnosis was cholecystitis and given Augmentin. Will alert PACT team for information. /camryn COLLADO PHARM.D., [facility] CLINICAL PHARMACIST Signed: 08/30/2024 10:09 Receipt Acknowledged By: 09/01/2024 15:59 /camryn HALL REGISTERED NURSE * AWAITING SIGNATURE * THOMASMANUEL 09/01/2024 ADDENDUM STATUS: COMPLETED per 08/30/24 CC bernadine self present care coordination note Patient left AMA, re-presented to same ER the following day, and is currently hospitalized. Records r/t this episode of care received; sent to [facility] for scanning. Alerting PCP team to this note for continuity of care. /camryn HALL REGISTERED NURSE Signed: 09/01/2024 16:00 REED COLLADO [facility]
--- OUTSIDE RECORDS SUMMARY | 2024-11-17 04:13 | XMS_ITS | Encounter Summary ---
Author Name [facility] Organization [facility] [place] [facility] [place] Address [address] [place] [address] Care Team Providers Care Bond Runner Name Role Phone MANUEL BAIRD Primary Care [...] PART A Apr 08, 2017 PART A [id number] ASHLEY WALKER PATIENT Selected Encounter This section includes the information on record at [place] for the Encounter. 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 This section includes future appointments and [...] 01:00 PM AMBULATORY - SURGERY [facility] Sep 21, 2024 01:30 PM AMBULATORY MEDICINE [facility] Sep 22, 2024 11:00 AM AMBULATORY - MEDICINE [facility] Sep 29, 2024 12:30 PM AMBULATORY - MEDICINE [facility] Oct 02, 2024 09:30 AM AMBULATORY - MEDICINE [facility] Nov 20, 2024 10:30 AM AMBULATORY - SURGERY [facility] Nov 21, 2024 10:00 AM AMBULATORY - NONE [facility] Dec 11, 2024 10:30 AM AMBULATORY - MEDICINE [facility] Active, Pending, and Scheduled Orders This [...] from all [facility]. Test Date/Time Test Type Test Details Facility Name Aug 02, 2024 12:00 AM Laboratory - Chemistry Order COMPREHENSIVE METABOLIC PANEL GREEN LI/HEP BLD/PLAS PLASMA SP [facility] Aug 02, 2024 12:00 AM Laboratory - Chemistry Order CBC BLOOD STAT SP [facility] Aug 17, 2024 03:47 PM Consult Order [facility] Cons Bedside [facility] Lab Results: +/- 30 days of [...] Range Comment Aug 23, 2024 08:21 AM [facility] MAGNESIUM Specimen Type: PLASMA No comment entered. Ordering Provider: SLIVIA REDDY Report Released Date/Time: Aug 22, 2024 11:26 AM Reporting Lab: [facility] [facility] [address] Performing Lab: [facility] [facility] [address] MAGNESIUM 1.8 mg/dL 1.6-2.6 Aug 23, 2024 08:21 AM [facility] CBC Specimen Type: BLOOD No comment entered. Ordering Provider: SILVIA REDDY Report Released Date/Time: Aug 22, 2024 11:19 AM Reporting Lab: [facility] [facility] [address] Performing Lab: [facility] [facility] [address] WBC 4.0 10*3/uL 3.6-11.2 RBC 3.65 10*6/uL [...] 10*3/uL 0.00-0.20 Aug 23, 2024 05:12 AM [facility] GLUCOSE,BLOOD-poct (STL) Specimen Type: BLOOD Comment: Test Performed by: [id number] Meter #: [id number] Ordering Provider: SILVIA REDDY Report Released Date/Time: Aug 23, 2024 05:23 AM Reporting Lab: [facility] [facility] [address] Performing Lab: [facility] [address] GLUCOSE,BLOOD- poct (STL) 99 mg/dL 72-99 Aug 23, 2024 02:45 AM [facility] OCCULT BLOOD FIT X1 SCREEN Specimen Type: FECES No comment entered. Ordering Provider: SILVIA REDDY Report Released Date/Time: Aug 22, 2024 11:23 AM Reporting Lab: [address] [address] Performing Lab: [address] [address] OCCULT BLOOD (FIT) #1 OF 1 Negative Negative Aug 22, 2024 07:30 PM [facility] OCCULT BLOOD FIT X1 SCREEN Specimen Type: FECES No comment entered. Ordering Provider: SILVIA REDDY Report Released Date/Time: Aug 22, 2024 11:23 AM Reporting Lab: [address] [address] Performing Lab: [address] [address] OCCULT BLOOD (FIT) #1 OF 1 Negative Negative Aug 22, 2024 06:15 PM [facility] OCCULT BLOOD FIT X1 SCREEN Specimen Type: FECES No comment entered. Ordering Provider: SILVIA REDDY Report Released Date/Time: Aug 22, 2024 11:23 AM Reporting Lab: [facility] [address] [place] [address] Performing Lab: [address] [address] OCCULT BLOOD (FIT) #1 OF 1 Negative Negative Aug 22, 2024 04:24 PM [facility] GLUCOSE,BLOOD-poct (STL) Specimen Type: BLOOD Comment: Test Performed by: [id number] Meter #: [id number] Ordering Provider: SILVIA REDDY Report Released Date/Time: Aug 22, 2024 04:36 PM Reporting Lab: [facility] [address] Performing Lab: [facility] [address] [facility] [address] GLUCOSE,BLOOD- poct (STL) 176 mg/dL H 72-99 Aug 22, 2024 04:23 PM [facility] GLUCOSE,BLOOD-poct (STL) Specimen Type: BLOOD Comment: Test Performed by: [id number] Meter #: [id number] Ordering Provider: SILVIA REDDY Report Released Date/Time: Aug 22, 2024 04:36 PM Reporting Lab: [facility] [facility] [address] Performing Lab: [facility] [facility] [address] GLUCOSE,BLOOD- poct (STL) 221 mg/dL H 72-99 Aug 22, 2024 11:15 AM [facility] GLUCOSE,BLOOD-poct (STL) Specimen Type: BLOOD Comment: Test Performed by: [id number] Meter #: [id number] Ordering Provider: SILVIA REDDY Report Released Date/Time: Aug 22, 2024 11:27 AM Reporting Lab: [facility] [facility] [address] Performing Lab: [facility] [facility] [address] GLUCOSE,BLOOD- poct (STL) 140 mg/dL H 72-99 Aug 22, 2024 08:03 AM [facility] FERRITIN Specimen Type: SERUM No comment entered. Ordering Provider: JUDIT PERKINS Report Released Date/Time: Aug 18, 2024 11:01 AM Reporting Lab: [facility] [address] [facility] [address] Performing Lab: [facility] [address] [place] [address] FERRITIN 79.50 ng/mL 22-275 Aug 22, 2024 08:03 AM [facility] IRON/TIBC PROFILE Specimen Type: SERUM No comment entered. Ordering Provider: JUDIT PERKINS Report Released Date/Time: Aug 18, 2024 11:01 AM Reporting Lab: [facility] [address] [facility] [address] Performing Lab: [facility] [address] [facility] [address] TIBC 283 ug/dL 250-450 TRANSFERRIN 226 mg/dL 163-344 IRON SATURATION 7 L 20-50 IRON 19 ug/dL L 65-175 Aug 22, 2024 08:03 AM [facility] B12 Specimen Type: SERUM No comment entered. Ordering Provider: JUDIT PERKINS Report Released Date/Time: Aug 18, 2024 11:01 AM Reporting Lab: [facility] [facility] [address] Performing Lab: [facility] [facility] [address] B12 631 pg/mL 213-816 Aug 22, 2024 08:03 AM [facility] COMPREHENSIVE METABOLIC PANEL Specimen Type: PLASMA Comment: No hemolysis noted. Ordering Provider: SILVIA REDDY Report Released Date/Time: Aug 17, 2024 01:18 PM Reporting Lab: [facility] [address] [facility] [address] Performing Lab: [facility] [address] [facility] [address] CREATININE 0.80 mg/dL 0.7-1.3 UREA NITROGEN 9.7 [...] >60 Aug 22, 2024 08:03 AM [facility] CBC Specimen Type: BLOOD No comment entered. Ordering Provider: SILVIA REDDY Report Released Date/Time: Aug 17, 2024 01:18 PM Reporting Lab: [facility] [address] [facility] [address] Performing Lab: [facility] [facility] [address] WBC 3.5 10*3/uL L 3.6-11.2 RBC 3.23 [...] NRBC% 0 Aug 22, 2024 05:03 AM [facility] GLUCOSE,BLOOD-poct (STL) Specimen Type: BLOOD Comment: Test Performed by: [id number] Meter #: [id number] Ordering Provider: SILVIA REDDY Report Released Date/Time: Aug 22, 2024 06:17 AM Reporting Lab: [facility] [place] [address] Performing Lab: [facility] [place] [address] GLUCOSE,BLOOD- poct (STL) 170 mg/dL H 72-99 Aug 21, 2024 04:32 PM [facility] GLUCOSE,BLOOD-poct (STL) Specimen Type: BLOOD Comment: Test Performed by: [id number] Meter #: [id number] Ordering Provider: SILVIA REDDY Report Released Date/Time: Aug 21, 2024 04:49 PM Reporting Lab: [facility] [place] [address] Performing Lab: [facility] [place] [address] GLUCOSE,BLOOD- poct (STL) 169 mg/dL H 72-99 Aug 21, 2024 11:53 AM [facility] GLUCOSE,BLOOD-poct (STL) Specimen Type: BLOOD Comment: Test Performed by: [id number] Meter #: [id number] Ordering Provider: SILVIA REDDY Report Released Date/Time: Aug 21, 2024 12:11 PM Reporting Lab: [facility] [place] [address] Performing Lab: [facility] [facility] [address] GLUCOSE,BLOOD- poct (STL) 149 mg/dL H -Aug 21, 2024 05:10 AM [facility] GLUCOSE,BLOOD-poct (STL) Specimen Type: BLOOD Comment: Test Performed by: [id number] Meter #: [id number] Ordering Provider: SILVIA REDDY Report Released Date/Time: Aug 21, 2024 05:27 AM Reporting Lab: [facility] [facility] [address] Performing Lab: [facility] [address] [facility] [address] GLUCOSE,BLOOD- poct (STL) 118 mg/dL H -Aug 20, 2024 04:38 PM [facility] GLUCOSE,BLOOD-poct (STL) Specimen Type: BLOOD Comment: Test Performed by: [id number] Meter #: [id number] Ordering Provider: SILVIA REDDY Report Released Date/Time: Aug 21, 2024 01:55 AM Reporting Lab: [facility] [facility] [address] Performing Lab: [facility] [facility] [address] GLUCOSE,BLOOD- poct (STL) 169 mg/dL H -Aug 20, 2024 04:36 PM [facility] GLUCOSE,BLOOD-poct (STL) Specimen Type: BLOOD Comment: Test Performed by: [id number] Meter #: [id number] Ordering Provider: SILVIA REDDY Report Released Date/Time: Aug 21, 2024 01:55 AM Reporting Lab: [facility] [address] [facility] [address] Performing Lab: [facility] [facility] [address] GLUCOSE,BLOOD- poct (STL) 395 mg/dL H Aug 20, 2024 11:45 AM [facility] GLUCOSE,BLOOD-poct (STL) Specimen Type: BLOOD Comment: Test Performed by: [id number] Meter #: [id number] Ordering Provider: SILVIA REDDY Report Released Date/Time: Aug 20, 2024 11:56 AM Reporting Lab: [facility] [facility] [address] Performing Lab: [facility] [address] GLUCOSE,BLOOD- poct (STL) 169 mg/dL H 72-Aug 20, 2024 05:06 AM [facility] GLUCOSE,BLOOD-poct (STL) Specimen Type: BLOOD Comment: Test Performed by: [id number] Meter #: [id number] Ordering Provider: SILVIA REDDY Report Released Date/Time: Aug 20, 2024 06:05 AM Reporting Lab: [facility] [place] [address] Performing Lab: [facility] [facility] [address] GLUCOSE,BLOOD- poct (STL) 115 mg/dL H -Aug 19, 2024 04:23 PM [facility] GLUCOSE,BLOOD-poct (STL) Specimen Type: BLOOD Comment: Test Performed by: [id number] Meter #: [id number] Ordering Provider: SILVIA REDDY Report Released Date/Time: Aug 19, 2024 05:54 PM Reporting Lab: [facility] [facility] [address] Performing Lab: [facility] [facility] [address] GLUCOSE,BLOOD- poct (STL) 137 mg/dL H 72-Aug 19, 2024 11:28 AM [facility] GLUCOSE,BLOOD-poct (STL) Specimen Type: BLOOD Comment: Test Performed by: [id number] Meter #: [id number] Ordering Provider: SILVIA REDDY Report Released Date/Time: Aug 19, 2024 11:51 AM Reporting Lab: [facility] [facility] [address] Performing Lab: [facility] [facility] [address] GLUCOSE,BLOOD- poct (STL) 190 mg/dL H 72-99 Aug 19, 2024 05:21 AM [facility] GLUCOSE,BLOOD-poct (STL) Specimen Type: BLOOD Comment: Test Performed by: [id number] Meter #: [id number] Ordering Provider: SILVIA REDDY Report Released Date/Time: Aug 19, 2024 05:56 AM Reporting Lab: [facility] [facility] [address] Performing Lab: [facility] [facility] [address] GLUCOSE,BLOOD- poct (STL) 130 mg/dL H 72-99 Aug 18, 2024 04:49 PM [facility] GLUCOSE,BLOOD-poct (STL) Specimen Type: BLOOD Comment: Test Performed by: [id number] Meter #: [id number] Ordering Provider: SILVIA REDDY Report Released Date/Time: Aug 18, 2024 05:01 PM Reporting Lab: [facility] [facility] [address] Performing Lab: [facility] [facility] [address] GLUCOSE,BLOOD- poct (STL) 129 mg/dL H 72-99 Aug 18, 2024 11:23 AM [facility] GLUCOSE,BLOOD-poct (STL) Specimen Type: BLOOD Comment: Test Performed by: [id number] Meter #: [id number] Ordering Provider: SILVIA REDDY Report Released Date/Time: Aug 18, 2024 11:41 AM Reporting Lab: [facility] [facility] [address] Performing Lab: [facility] [facility] [address] GLUCOSE,BLOOD- poct (STL) 180 mg/dL H Aug 18, 2024 05:08 AM [facility] GLUCOSE,BLOOD-poct (STL) Specimen Type: BLOOD Comment: Test Performed by: [id number] Meter #: [id number] Ordering Provider: SILVIA REDDY Report Released Date/Time: Aug 18, 2024 05:31 AM Reporting Lab: [facility] [facility] [address] Performing Lab: [facility] [facility] [address] GLUCOSE,BLOOD- poct (STL) 127 mg/dL H Aug 17, 2024 07:32 PM [facility] GLUCOSE,BLOOD-poct (STL) Specimen Type: BLOOD Comment: Test Performed by: [id number] Meter #: [id number] Ordering Provider: SILVIA REDDY Report Released Date/Time: Aug 17, 2024 07:59 PM Reporting Lab: [facility] [facility] [address] Performing Lab: [facility] [facility] [address] GLUCOSE,BLOOD- poct (STL) 154 mg/dL H Aug 17, 2024 04:24 PM [facility] GLUCOSE,BLOOD-poct (STL) Specimen Type: BLOOD Comment: Test Performed by: [id number] Meter #: [id number] Ordering Provider: SILVIA REDDY Report Released Date/Time: Aug 17, 2024 04:35 PM Reporting Lab: [facility] [facility] [address] Performing Lab: [facility] [facility] [address] GLUCOSE,BLOOD- poct (STL) 178 mg/dL H Aug 17, 2024 05:09 AM [facility] GLUCOSE,BLOOD-poct (STL) Specimen Type: BLOOD Comment: Test Performed by: [id number] Meter #: [id number] Ordering Provider: SILVIA REDDY Report Released Date/Time: Aug 17, 2024 05:54 AM Reporting Lab: [facility] [facility] [address] Performing Lab: [facility] [address] GLUCOSE,BLOOD- poct (STL) 124 mg/dL H Aug 16, 2024 07:40 PM [facility] GLUCOSE,BLOOD-poct (STL) Specimen Type: BLOOD Comment: Test Performed by: [id number] Meter #: [id number] Ordering Provider: SILVIA REDDY Report Released Date/Time: Aug 16, 2024 08:28 PM Reporting Lab: [facility] [facility] [address] Performing Lab: [facility] [facility] [address] GLUCOSE,BLOOD- poct (STL) 144 mg/dL H Aug 16, 2024 04:19 PM [facility] GLUCOSE,BLOOD-poct (STL) Specimen Type: BLOOD Comment: Test Performed by: [id number] Meter #: [id number] Ordering Provider: SILVIA REDDY Report Released Date/Time: Aug 16, 2024 04:45 PM Reporting Lab: [facility] [facility] [address] Performing Lab: [facility] [facility] [address] GLUCOSE,BLOOD- poct (STL) 138 mg/dL H Aug 16, 2024 11:52 AM [facility] GLUCOSE,BLOOD-poct (STL) Specimen Type: BLOOD Comment: Test Performed by: [id number] Meter #: [id number] Ordering Provider: SILVIA REDDY Report Released Date/Time: Aug 16, 2024 12:04 PM Reporting Lab: [facility] [facility] [address] Performing Lab: [facility] [facility] [address] GLUCOSE,BLOOD- poct (STL) 135 mg/dL H 72-Aug 16, 2024 05:24 AM [facility] GLUCOSE,BLOOD-poct (STL) Specimen Type: BLOOD Comment: Test Performed by: [id number] Meter #: [id number] Ordering Provider: SILVIA REDDY Report Released Date/Time: Aug 16, 2024 05:38 AM Reporting Lab: [facility] [facility] [address] Performing Lab: [facility] [address] GLUCOSE,BLOOD- poct (STL) 151 mg/dL H 72-Aug 15, 2024 07:31 PM [facility] GLUCOSE,BLOOD-poct (STL) Specimen Type: BLOOD Comment: Test Performed by: [id number] Meter #: [id number] Ordering Provider: SILVIA REDDY Report Released Date/Time: Aug 15, 2024 08:07 PM Reporting Lab: [facility] [facility] [address] Performing Lab: [facility] [facility] [address] GLUCOSE,BLOOD- poct (STL) 173 mg/dL H 72-99 Aug 15, 2024 04:18 PM [facility] GLUCOSE,BLOOD-poct (STL) Specimen Type: BLOOD Comment: Test Performed by: [id number] Meter #: [id number] Ordering Provider: SILVIA REDDY Report Released Date/Time: Aug 15, 2024 04:59 PM Reporting Lab: [facility] [facility] [address] Performing Lab: [facility] [address] GLUCOSE,BLOOD- poct (STL) 136 mg/dL H Aug 15, 2024 04:16 PM [facility] GLUCOSE,BLOOD-poct (STL) Specimen Type: BLOOD Comment: Test Performed by: [id number] Meter #: [id number] Ordering Provider: SILVIA REDDY Report Released Date/Time: Aug 15, 2024 04:59 PM Reporting Lab: [facility] [facility] [address] Performing Lab: [facility] #[address] [facility] [address] GLUCOSE,BLOOD- poct (STL) 194 mg/dL H Aug 15, 2024 11:39 AM [facility] GLUCOSE,BLOOD-poct (STL) Specimen Type: BLOOD Comment: Test Performed by: [id number] Meter #: [id number] Ordering Provider: SILVIA REDDY Report Released Date/Time: Aug 15, 2024 12:00 PM Reporting Lab: [facility] [facility] [address] Performing Lab: [facility] [facility] [address] GLUCOSE,BLOOD- poct (STL) 127 mg/dL H Aug 15, 2024 05:07 AM [facility] GLUCOSE,BLOOD-poct (STL) Specimen Type: BLOOD Comment: Test Performed by: [id number] Meter #: [id number] Ordering Provider: SILVIA REDDY Report Released Date/Time: Aug 15, 2024 06:14 AM Reporting Lab: [facility] [address] Performing Lab: [facility] [facility] [address] GLUCOSE,BLOOD- poct (STL) 151 mg/dL H Aug 14, 2024 04:22 PM [facility] GLUCOSE,BLOOD-poct (STL) Specimen Type: BLOOD Comment: Test Performed by: [id number] Meter #: [id number] Ordering Provider: SILVIA REDDY Report Released Date/Time: Aug 14, 2024 04:52 PM Reporting Lab: [facility] [facility] [address] Performing Lab: [facility] [facility] [address] GLUCOSE,BLOOD- poct (STL) 129 mg/dL H 72-99 Aug 14, 2024 11:21 AM [facility] GLUCOSE,BLOOD-poct (STL) Specimen Type: BLOOD Comment: Test Performed by: [id number] Meter #: [id number] Ordering Provider: SILVIA REDDY Report Released Date/Time: Aug 14, 2024 11:37 AM Reporting Lab: [facility] [address] Performing Lab: [facility] [address] GLUCOSE,BLOOD- poct (STL) 135 mg/dL H 72-99 Aug 14, 2024 06:59 AM [facility] QUANTIFERON-TB,4 TUBE Specimen Type: BLOOD [...] For additional information, please refer to http://[email or web address] [email or web address]/faq/PKN539 (This link is being provided for information/ educational purposes only.) Test Performed by [employer], [employer], [address] [place], [place] Tommie Garcia M.D., Ph.D., Director of Laboratories , [facility] [id number] Ordering Provider: SILVIA REDDY Report Released Date/Time: Aug 11, 2024 03:58 PM Reporting Lab: [facility] [address] [facility] [address] Performing Lab: [facility] [address] [facility] .NIL - QUANTIFERON 0.04 [IU]/mL .MITOGEN-NIL 0.39 [IU]/mL .QUANTIFERON INDETERMINATE NEGATIVE .TB1-NIL <0.00 [IU]/mL .TB2-NIL <0.00 [IU]/mL Aug 14, 2024 06:59 AM [facility] MAGNESIUM Specimen Type: PLASMA Comment: No hemolysis noted. Ordering Provider: SILVIA REDDY Report Released Date/Time: Aug 11, 2024 03:58 PM Reporting Lab: [facility] [id number] Performing Lab: [facility] [place] [id number] MAGNESIUM 1.9 mg/dL 1.6-2.6 Aug 14, 2024 06:59 AM [facility] B12 Specimen Type: SERUM No comment entered. Ordering Provider: SILVIA REDDY Report Released Date/Time: Aug 11, 2024 03:58 PM Reporting Lab: [facility] [id number] Performing Lab: [facility] [place] [phone] B12 757 pg/mL 213-816 Aug 14, 2024 06:59 AM [facility] FOLATE (STL-MA) Specimen Type: SERUM No comment entered. Ordering Provider: SILVIA REDDY Report Released Date/Time: Aug 11, 2024 03:58 PM Reporting Lab: [facility] [place] [address] Performing Lab: [facility] #1 [place] [address] FOLATE (L-MA) 6.8 ng/mL L 7-20 Aug 14, 2024 06:59 AM [facility] VITAMIN D, 25-HYDROXY Specimen Type: SERUM No comment entered. Ordering Provider: SILVIA REDDY Report Released Date/Time: Aug 11, 2024 03:58 PM Reporting Lab: [facility] [place] [address] Performing Lab: [facility] [place] [address] VITAMIN D, 25-HYDROXY 8.9 ng/mL L 30-96 Aug 14, 2024 06:59 AM [facility] CBC Specimen Type: BLOOD No comment entered. Ordering Provider: SILVIA REDDY Report Released Date/Time: Aug 11, 2024 03:58 PM Reporting Lab: [facility] [place] [address] Performing Lab: [facility] [place] [address] WBC 4.1 10*3/uL 3.6-11.2 RBC 3.20 10*6/uL [...] 0.00-0.20 Aug 14, 2024 06:59 AM [facility] COMPREHENSIVE METABOLIC PANEL Specimen Type: PLASMA Comment: No hemolysis noted. Ordering Provider: SILVIA REDDY Report Released Date/Time: Aug 11, 2024 03:58 PM Reporting Lab: [facility] [place] [phone] Performing Lab: [facility] [place] [phone] CREATININE 0.75 mg/dL 0.70-1.30 UREA NITROGEN 13.6 [...] >60 Aug 14, 2024 05:08 AM [facility] GLUCOSE,BLOOD-poct (STL) Specimen Type: BLOOD Comment: Test Performed by: [id number] Meter #: [id number] Ordering Provider: SILVIA REDDY Report Released Date/Time: Aug 14, 2024 05:52 AM Reporting Lab: [facility] [address] Performing Lab: [facility] [address] GLUCOSE,BLOOD- poct (STL) 135 mg/dL H -Aug 13, 2024 04:27 PM [facility] GLUCOSE,BLOOD-poct (STL) Specimen Type: BLOOD Comment: Test Performed by: [id number] Meter #: [id number] Ordering Provider: SILVIA REDDY Report Released Date/Time: Aug 13, 2024 04:41 PM Reporting Lab: [facility] [address] Performing Lab: [facility] [address] GLUCOSE,BLOOD- poct (STL) 181 mg/dL H Aug 13, 2024 11:33 AM [facility] GLUCOSE,BLOOD-poct (STL) Specimen Type: BLOOD Comment: Test Performed by: [id number] Meter #: [id number] Ordering Provider: SILVIA REDDY Report Released Date/Time: Aug 13, 2024 03:55 PM Reporting Lab: [facility] [phone] Performing Lab: [facility] [address] GLUCOSE,BLOOD- poct (STL) 140 mg/dL H Aug 13, 2024 05:54 AM [facility] GLUCOSE,BLOOD-poct (STL) Specimen Type: BLOOD Comment: Test Performed by: [id number] Meter #: [id number] Ordering Provider: SILVIA REDDY Report Released Date/Time: Aug 13, 2024 06:20 AM Reporting Lab: [facility] [address] Performing Lab: [facility] [address] GLUCOSE,BLOOD- poct (STL) 112 mg/dL H -Aug 12, 2024 04:35 PM [facility] GLUCOSE,BLOOD-poct (STL) Specimen Type: BLOOD Comment: Test Performed by: [id number] Meter #: [id number] Ordering Provider: SILVIA REDDY Report Released Date/Time: Aug 12, 2024 04:47 PM Reporting Lab: [facility] [address] Performing Lab: [facility] [address] GLUCOSE,BLOOD- poct (STL) 128 mg/dL H -Aug 12, 2024 11:26 AM [facility] GLUCOSE,BLOOD-poct (STL) Specimen Type: BLOOD Comment: Test Performed by: [id number] Meter #: [id number] Ordering Provider: SILVIA REDDY Report Released Date/Time: Aug 12, 2024 11:45 AM Reporting Lab: [facility] [address] Performing Lab: [facility] [address] GLUCOSE,BLOOD- poct (STL) 188 mg/dL H -Aug 12, 2024 06:13 AM [facility] GLUCOSE,BLOOD-poct (STL) Specimen Type: BLOOD Comment: Test Performed by: [id number] Meter #: [id number] Ordering Provider: SILVIA REDDY Report Released Date/Time: Aug 12, 2024 06:25 AM Reporting Lab: [facility] [address] Performing Lab: [facility] [address] GLUCOSE,BLOOD- poct (STL) 116 mg/dL H -Aug 11, 2024 04:10 PM [facility] GLUCOSE,BLOOD-poct (STL) Specimen Type: BLOOD Comment: Test Performed by: [id number] Meter #: [id number] Ordering Provider: SILVIA REDDY Report Released Date/Time: Aug 11, 2024 04:27 PM Reporting Lab: [facility] [address] Performing Lab: [facility] [address] GLUCOSE,BLOOD- poct (STL) 184 mg/dL H 72-99 Aug 11, 2024 01:44 PM [facility] MRSA SURVL NARES DNA Specimen [...] Aug 11, 2024 02:03 PM Reporting Lab: [facility] [address] [place] [phone] Performing Lab: [address] [address] MRSA SURVL NARES DNA Negative Negative Jul 20, 2024 11:18 AM [facility] APTT Specimen Type: PLASMA No comment entered. Ordering Provider: MANUEL BAIRD Report Released Date/Time: Jul 19, 2024 04:00 PM Reporting Lab: [facility] [address] [facility] [address] Performing Lab: [facility] [address] [place] [address] APTT 32.1 s 26.7-39.9 Jul 20, 2024 11:18 AM [facility] PT/INR NEW (STL-MA) Specimen Type: PLASMA No comment entered. Ordering Provider: MANUEL BAIRD Report Released Date/Time: Jul 19, 2024 04:00 PM Reporting Lab: [facility] [address] [facility] [address] Performing Lab: [facility] [address] [place] [address] PROTIME 14.4 s H 9.4-12.5 INR VALUE 1.3 {INR} Jul 20, 2024 11:18 AM [facility] CBC Specimen Type: BLOOD No comment entered. Ordering Provider: MANUEL BAIRD Report Released Date/Time: Jul 19, 2024 04:00 PM Reporting Lab: [facility] [address] [facility] [address] Performing Lab: [address] [address] WBC 4.7 10*3/uL 3.6-11.2 RBC 4.86 10*6/uL [...] 1.0-7.0 Jul 17, 2024 08:02 AM [facility] BASIC METABOLIC PANEL Specimen Type: PLASMA Comment: No hemolysis noted. Ordering Provider: MARY SERNA Report Released Date/Time: Jun 07, 2024 01:43 PM Reporting Lab: [facility] [address] [facility] [address] Performing Lab: [facility] [address] [facility] [address] CREATININE 0.85 mg/dL 0.7-1.3 UREA NITROGEN 15.2 [...] PM 97.8 68 122/76 18 96 0 [facility] Aug 15, 2024 03:23 PM 97.7 [facility] Aug 15, 2024 12:19 PM 0 [facility] Aug 15, 2024 10:00 AM 97.8 84 120/72 18 95 0 [facility] Aug 15, 2024 05:35 AM 98.1 80 115/67 20 95 [facility] Advance Directives: All historical [...] DIRECTIVE DISCUSSION ERICK BARDALES [facility] Encounter Notes: All associated encounter notes This section contains the clinical notes associated to the Encounter. 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 Pain Level: None O: participated in the following tasks this date in OT - Bed mobility: (I) Pivot transfer to/from bed and w/c: CGA UE arm bike on minimal resistance with no pain reported at CABG site. [place] Education: [place] was ready to learn and verbalized understanding of the following information this date. _X_Self Care _X_Transfer training _X_HEP _X_Call light/alert nursing for mobility _X_Adaptive equipment use ___Modality used ___Other Equipment Issued: None Equipment pending/not ordered: None A: Vet admitted to [facility] following CABG and pacemaker placement. Intervention this date was focused on bed mobility, transfers, and UE endurance. Also fitted with a bowman w/c. response to tx/progress: Vet did well with tasks this date. No pain with minimal resistant UE exercises. Vet happy with unit w/c and that he can get out of his room . Barriers: None [place] would benefit from OT for the continuation of the following plan of care: Treatment Plan: _x_ADLs _x_Transfers _X_endurance _x_Adaptive equipment Assessment Discharge recommendation: Return home. P: Continue current OT treatment plan and goals. To see vet 3-5x per week. SHORT TERM GOALS: To be achieved in (2 weeks). 1. [place] will demo UB drsg with Indep 2. Vet will demo LB drsg with Indep and AE prn. 3. Vet will demo toilet transfer with Mod I and DME prn. 4. Vet will demo bed->chair transfer with Mod I and DME prn. - ONGOING 5. Vet will demo Mod I for bathing tasks 6. Vet will demo Mod I for tub transfer 7. Vet will participate in Short Blessed Test Time in/out: 11:30am-11:55am Total Minutes: 25 min Evaluating Therapist: Jonah CEDENO and OT reviewed and agreed upon objective and assessment information regarding veterans current tx plan and goals. (ICD-10-CM I25.729) Treatment codes: ___ 72400 Ther Activity _X_ 77112 Ther Exercise _X_ 76610 Self Care ___ 86501 Thrptc Intervent Cognitive Function, Initial ___ 04301 Thrptc Intervent Cognitive Function, Ea Addl 15 min -Location of visit: [X] room [X]OT gym -Other people involved in treatment [X]None []Included: /shen/ [employer] Signed: 08/16/2024 13:26 JOAN MENDEZ [facility]
--- OUTSIDE RECORDS SUMMARY | 2024-11-17 04:13 | XMS_ITS | Encounter Summary ---
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 This section includes future appointments and future orders which are active, pending or scheduled. Future Appointments This section includes appointments that were scheduled to occur 6 months from the date of the Encounter, up to a maximum of 20 appointments. The data comes from all [facility]. Appointment Date/Time Appointment Type Appointme nt Facility Name Aug 24, 2024 10:00 AM AMBULATORY - MEDICINE [facility] Aug 24, 2024 10:30 AM AMBULATORY - MEDICINE [facility] Aug 30, 2024 09:30 AM AMBULATORY MEDICINE [facility] Aug 31, 2024 01:00 PM AMBULATORY - SURGERY [facility] Sep 21, 2024 01:30 PM AMBULATORY MEDICINE [facility] Sep 22, 2024 11:00 AM AMBULATORY - MEDICINE [facility] Sep 29, 2024 12:30 PM AMBULATORY - MEDICINE [facility] Oct 02, 2024 09:30 AM AMBULATORY MEDICINE [facility] Nov 20, 2024 10:30 AM AMBULATORY - SURGERY [facility] Nov 21, 2024 10:00 AM AMBULATORY - NONE [facility] Dec 11, 2024 10:30 [...] The data comes from all [facility]. Test Date/Time Test Type Test Details Facility Name Aug 02, 2024 12:00 AM Laboratory - Chemistry Order COMPREHENSIVE METABOLIC PANEL GREEN LI/HEP BLD/PLAS PLASMA SP [facility] Aug 02, 2024 12:00 AM Laboratory - Chemistry Order CBC BLOOD STAT SP [facility] Aug 17, 2024 03:47 PM Consult Order [facility] Cons Bedside [facility] Lab Results: +/- 30 days of the encounter This section includes the Chemistry and Hematology Lab Results on record with [place] for the patient. Radiology Reports and Pathology [...] 2024 11:26 AM Reporting Lab: [facility] [address] Performing Lab: [facility] [address] MAGNESIUM 1.8 mg/dL 1.6-2.6 Aug 23, 2024 08:21 AM [facility] CBC Specimen Type: BLOOD No comment entered. Ordering Provider: SILVIA REDDY Report Released Date/Time: Aug 22, 2024 11:19 AM Reporting Lab: [facility] [address] Performing Lab: [facility] [address] WBC 4.0 10*3/uL 3.6-11.2 RBC 3.65 10*6/uL [...] Specimen Type: BLOOD Comment: Test Performed by: [id number] Meter #: [id number] Ordering Provider: SILVIA REDDY Report Released Date/Time: Aug 23, 2024 05:23 AM Reporting Lab: [facility] [address] Performing Lab: [facility] [address] GLUCOSE,BLOOD- poct (STL) 99 mg/dL 72-99 Aug 23, 2024 02:45 AM [facility] OCCULT BLOOD FIT X1 SCREEN Specimen Type: FECES No comment entered. Ordering Provider: SILVIA REDDY Report Released Date/Time: Aug 22, 2024 11:23 AM Reporting Lab: [address] [address] Performing Lab: [address] [address] OCCULT BLOOD (FIT) #1 OF 1 Negative Negative Aug 22, 2024 07:30 PM [facility] OCCULT BLOOD FIT X1 SCREEN Specimen Type: FECES No comment entered. Ordering Provider: SILVIA REDDY Report Released Date/Time: Aug 22, 2024 11:23 AM Reporting Lab: [address] [address] Performing Lab: [address] [address] OCCULT BLOOD (FIT) #1 OF 1 Negative Negative Aug 22, 2024 06:15 PM [facility] OCCULT BLOOD FIT X1 SCREEN Specimen Type: FECES No comment entered. Ordering Provider: SILVIA REDDY Report Released Date/Time: Aug 22, 2024 11:23 AM Reporting Lab: [facility] [address] [facility] [address] Performing Lab: [address] [address] OCCULT BLOOD (FIT) #1 OF 1 Negative Negative Aug 22, 2024 04:24 PM [facility] GLUCOSE,BLOOD-poct (STL) Specimen Type: BLOOD Comment: Test Performed by: [id number] Meter #: [id number] Ordering Provider: SILVIA REDDY Report Released Date/Time: Aug 22, 2024 04:36 PM Reporting Lab: [facility] [address] Performing Lab: [facility] [address] GLUCOSE,BLOOD- poct (STL) 176 mg/dL H 72-99 Aug 22, 2024 04:23 PM [facility] GLUCOSE,BLOOD-poct (STL) Specimen Type: BLOOD Comment: Test Performed by: [id number] Meter #: [id number] Ordering Provider: SILVIA REDDY Report Released Date/Time: Aug 22, 2024 04:36 PM Reporting Lab: [facility] [address] Performing Lab: [facility] [address] GLUCOSE,BLOOD- poct (STL) 221 mg/dL H 72-99 Aug 22, 2024 11:15 AM [facility] GLUCOSE,BLOOD-poct (STL) Specimen Type: BLOOD Comment: Test Performed by: [id number] Meter #: [id number] Ordering Provider: SILVIA REDDY Report Released Date/Time: Aug 22, 2024 11:27 AM Reporting Lab: [facility] [address] Performing Lab: [facility] [address] GLUCOSE,BLOOD- poct (STL) 140 mg/dL H 72-99 Aug 22, 2024 08:03 AM [facility] FERRITIN Specimen Type: SERUM No comment entered. Ordering Provider: JUDIT PERKINS Report Released Date/Time: Aug 18, 2024 11:01 AM Reporting Lab: [facility] [address] [facility] [address] Performing Lab: [address] [address] FERRITIN 79.50 ng/mL 22-275 Aug 22, 2024 08:03 AM [facility] IRON/TIBC PROFILE Specimen Type: SERUM No comment entered. Ordering Provider: JUDIT PERKINS Report Released Date/Time: Aug 18, 2024 11:01 AM Reporting Lab: [facility] [address] [facility] [address] Performing Lab: [facility] [address] [place] [address] TIBC 283 ug/dL 250-450 TRANSFERRIN 226 mg/dL 163-344 IRON SATURATION 7 L 20-50 IRON 19 ug/dL L 65-175 Aug 22, 2024 08:03 AM [facility] B12 Specimen Type: SERUM No comment entered. Ordering Provider: JUDIT PERKINS Report Released Date/Time: Aug 18, 2024 11:01 AM Reporting Lab: [facility] [address] Performing Lab: [facility] [address] B12 631 pg/mL 213-816 Aug 22, 2024 08:03 AM [facility] COMPREHENSIVE METABOLIC PANEL Specimen Type: PLASMA Comment: No hemolysis noted. Ordering Provider: SILVIA REDDY Report Released Date/Time: Aug 17, 2024 01:18 PM Reporting Lab: [facility] [address] [facility] [address] Performing Lab: [facility] [address] [facility] [address] CREATININE 0.80 mg/dL 0.7-1.3 UREA NITROGEN 9.7 [...] 94.0 >60 Aug 22, 2024 08:03 AM [facility] CBC Specimen Type: BLOOD No comment entered. Ordering Provider: SILVIA REDDY Report Released Date/Time: Aug 17, 2024 01:18 PM Reporting Lab: [facility] [address] Performing Lab: [facility] [address] WBC 3.5 10*3/uL L 3.6-11.2 RBC 3.23 [...] Specimen Type: BLOOD Comment: Test Performed by: [id number] Meter #: [id number] Ordering Provider: SILVIA REDDY Report Released Date/Time: Aug 22, 2024 06:17 AM Reporting Lab: [facility] [place] [address] Performing Lab: [facility] [place] [address] GLUCOSE,BLOOD- poct (STL) 170 mg/dL H 72-99 Aug 21, 2024 04:32 PM [facility] GLUCOSE,BLOOD-poct (STL) Specimen Type: BLOOD Comment: Test Performed by: [id number] Meter #: [id number] Ordering Provider: SILVIA REDDY Report Released Date/Time: Aug 21, 2024 04:49 PM Reporting Lab: [facility] [place] [address] Performing Lab: [facility] [place] [address] GLUCOSE,BLOOD- poct (STL) 169 mg/dL H 72-99 Aug 21, 2024 11:53 AM [facility] GLUCOSE,BLOOD-poct (STL) Specimen Type: BLOOD Comment: Test Performed by: [id number] Meter #: [id number] Ordering Provider: SILVIA REDDY Report Released Date/Time: Aug 21, 2024 12:11 PM Reporting Lab: [facility] [place] [address] Performing Lab: [facility] [address] GLUCOSE,BLOOD- poct (STL) 149 mg/dL H -Aug 21, 2024 05:10 AM [facility] GLUCOSE,BLOOD-poct (STL) Specimen Type: BLOOD Comment: Test Performed by: [id number] Meter #: [id number] Ordering Provider: SILVIA REDDY Report Released Date/Time: Aug 21, 2024 05:27 AM Reporting Lab: [facility] [address] Performing Lab: [facility] [address] GLUCOSE,BLOOD- poct (STL) 118 mg/dL H -Aug 20, 2024 04:38 PM [facility] GLUCOSE,BLOOD-poct (STL) Specimen Type: BLOOD Comment: Test Performed by: [id number] Meter #: [id number] Ordering Provider: SILVIA REDDY Report Released Date/Time: Aug 21, 2024 01:55 AM Reporting Lab: [facility] [address] Performing Lab: [facility] [address] GLUCOSE,BLOOD- poct (STL) 169 mg/dL H Aug 20, 2024 04:36 PM [facility] GLUCOSE,BLOOD-poct (STL) Specimen Type: BLOOD Comment: Test Performed by: [id number] Meter #: [id number] Ordering Provider: SILVIA REDDY Report Released Date/Time: Aug 21, 2024 01:55 AM Reporting Lab: [facility] [address] Performing Lab: [facility] [address] GLUCOSE,BLOOD- poct (STL) 395 mg/dL H Aug 20, 2024 11:45 AM [facility] GLUCOSE,BLOOD-poct (STL) Specimen Type: BLOOD Comment: Test Performed by: [id number] Meter #: [id number] Ordering Provider: SILVIA REDDY Report Released Date/Time: Aug 20, 2024 11:56 AM Reporting Lab: [facility] [address] Performing Lab: [facility] [address] GLUCOSE,BLOOD- poct (STL) 169 mg/dL H 72-Aug 20, 2024 05:06 AM [facility] GLUCOSE,BLOOD-poct (STL) Specimen Type: BLOOD Comment: Test Performed by: [id number] Meter #: [id number] Ordering Provider: SILVIA REDDY Report Released Date/Time: Aug 20, 2024 06:05 AM Reporting Lab: [facility] [address] Performing Lab: [facility] [address] GLUCOSE,BLOOD- poct (STL) 115 mg/dL H -Aug 19, 2024 04:23 PM [facility] GLUCOSE,BLOOD-poct (STL) Specimen Type: BLOOD Comment: Test Performed by: [id number] Meter #: [id number] Ordering Provider: SILVIA REDDY Report Released Date/Time: Aug 19, 2024 05:54 PM Reporting Lab: [facility] [address] Performing Lab: [facility] [address] GLUCOSE,BLOOD- poct (STL) 137 mg/dL H 72-Aug 19, 2024 11:28 AM [facility] GLUCOSE,BLOOD-poct (STL) Specimen Type: BLOOD Comment: Test Performed by: [id number] Meter #: [id number] Ordering Provider: SILVIA REDDY Report Released Date/Time: Aug 19, 2024 11:51 AM Reporting Lab: [facility] [address] Performing Lab: [facility] [address] GLUCOSE,BLOOD- poct (STL) 190 mg/dL H 72-Aug 19, 2024 05:21 AM [facility] GLUCOSE,BLOOD-poct (STL) Specimen Type: BLOOD Comment: Test Performed by: [id number] Meter #: [id number] Ordering Provider: SILVIA REDDY Report Released Date/Time: Aug 19, 2024 05:56 AM Reporting Lab: [facility] [address] Performing Lab: [facility] [address] GLUCOSE,BLOOD- poct (STL) 130 mg/dL H -Aug 18, 2024 04:49 PM [facility] GLUCOSE,BLOOD-poct (STL) Specimen Type: BLOOD Comment: Test Performed by: [id number] Meter #: [id number] Ordering Provider: SILVIA REDDY Report Released Date/Time: Aug 18, 2024 05:01 PM Reporting Lab: [facility] [address] Performing Lab: [facility] [address] GLUCOSE,BLOOD- poct (STL) 129 mg/dL H 72-99 Aug 18, 2024 11:23 AM [facility] GLUCOSE,BLOOD-poct (STL) Specimen Type: BLOOD Comment: Test Performed by: [id number] Meter #: [id number] Ordering Provider: SILVIA REDDY Report Released Date/Time: Aug 18, 2024 11:41 AM Reporting Lab: [facility] [address] Performing Lab: [facility] [address] GLUCOSE,BLOOD- poct (STL) 180 mg/dL H Aug 18, 2024 05:08 AM [facility] GLUCOSE,BLOOD-poct (STL) Specimen Type: BLOOD Comment: Test Performed by: [id number] Meter #: [id number] Ordering Provider: SILVIA REDDY Report Released Date/Time: Aug 18, 2024 05:31 AM Reporting Lab: [facility] [address] Performing Lab: [facility] [address] GLUCOSE,BLOOD- poct (STL) 127 mg/dL H Aug 17, 2024 07:32 PM [facility] GLUCOSE,BLOOD-poct (STL) Specimen Type: BLOOD Comment: Test Performed by: [id number] Meter #: [id number] Ordering Provider: SILVIA REDDY Report Released Date/Time: Aug 17, 2024 07:59 PM Reporting Lab: [facility] [address] Performing Lab: [facility] [address] GLUCOSE,BLOOD- poct (STL) 154 mg/dL H Aug 17, 2024 04:24 PM [facility] GLUCOSE,BLOOD-poct (STL) Specimen Type: BLOOD Comment: Test Performed by: [id number] Meter #: [id number] Ordering Provider: SILVIA REDDY Report Released Date/Time: Aug 17, 2024 04:35 PM Reporting Lab: [facility] [address] Performing Lab: [facility] [address] GLUCOSE,BLOOD- poct (STL) 178 mg/dL H Aug 17, 2024 05:09 AM [facility] GLUCOSE,BLOOD-poct (STL) Specimen Type: BLOOD Comment: Test Performed by: [id number] Meter #: [id number] Ordering Provider: SILVIA REDDY Report Released Date/Time: Aug 17, 2024 05:54 AM Reporting Lab: [facility] [address] Performing Lab: [facility] [address] GLUCOSE,BLOOD- poct (STL) 124 mg/dL H -Aug 16, 2024 07:40 PM [facility] GLUCOSE,BLOOD-poct (STL) Specimen Type: BLOOD Comment: Test Performed by: [id number] Meter #: [id number] Ordering Provider: SILVIA REDDY Report Released Date/Time: Aug 16, 2024 08:28 PM Reporting Lab: [facility] [address] Performing Lab: [facility] [address] GLUCOSE,BLOOD- poct (STL) 144 mg/dL H -Aug 16, 2024 04:19 PM [facility] GLUCOSE,BLOOD-poct (STL) Specimen Type: BLOOD Comment: Test Performed by: [id number] Meter #: [id number] Ordering Provider: SILVIA REDDY Report Released Date/Time: Aug 16, 2024 04:45 PM Reporting Lab: [facility] [address] Performing Lab: [facility] [address] GLUCOSE,BLOOD- poct (STL) 138 mg/dL H -Aug 16, 2024 11:52 AM [facility] GLUCOSE,BLOOD-poct (STL) Specimen Type: BLOOD Comment: Test Performed by: [id number] Meter #: [id number] Ordering Provider: SILVIA REDDY Report Released Date/Time: Aug 16, 2024 12:04 PM Reporting Lab: [facility] [address] Performing Lab: [facility] [address] GLUCOSE,BLOOD- poct (STL) 135 mg/dL H 72-Aug 16, 2024 05:24 AM [facility] GLUCOSE,BLOOD-poct (STL) Specimen Type: BLOOD Comment: Test Performed by: [id number] Meter #: [id number] Ordering Provider: SILVIA REDDY Report Released Date/Time: Aug 16, 2024 05:38 AM Reporting Lab: [facility] [address] Performing Lab: [facility] [address] GLUCOSE,BLOOD- poct (STL) 151 mg/dL H -Aug 15, 2024 07:31 PM [facility] GLUCOSE,BLOOD-poct (STL) Specimen Type: BLOOD Comment: Test Performed by: [id number] Meter #: [id number] Ordering Provider: SILVIA REDDY Report Released Date/Time: Aug 15, 2024 08:07 PM Reporting Lab: [facility] [address] Performing Lab: [facility] [address] GLUCOSE,BLOOD- poct (STL) 173 mg/dL H 72-Aug 15, 2024 04:18 PM [facility] GLUCOSE,BLOOD-poct (STL) Specimen Type: BLOOD Comment: Test Performed by: [id number] Meter #: [id number] Ordering Provider: SILVIA REDDY Report Released Date/Time: Aug 15, 2024 04:59 PM Reporting Lab: [facility] [address] Performing Lab: [facility] [address] GLUCOSE,BLOOD- poct (STL) 136 mg/dL H Aug 15, 2024 04:16 PM [facility] GLUCOSE,BLOOD-poct (STL) Specimen Type: BLOOD Comment: Test Performed by: [id number] Meter #: [id number] Ordering Provider: SILVIA REDDY Report Released Date/Time: Aug 15, 2024 04:59 PM Reporting Lab: [facility] [address] Performing Lab: [facility] [address] GLUCOSE,BLOOD- poct (STL) 194 mg/dL H Aug 15, 2024 11:39 AM [facility] GLUCOSE,BLOOD-poct (STL) Specimen Type: BLOOD Comment: Test Performed by: [id number] Meter #: [id number] Ordering Provider: SILVIA REDDY Report Released Date/Time: Aug 15, 2024 12:00 PM Reporting Lab: [facility] [address] Performing Lab: [facility] [address] GLUCOSE,BLOOD- poct (STL) 127 mg/dL H Aug 15, 2024 05:07 AM [facility] GLUCOSE,BLOOD-poct (STL) Specimen Type: BLOOD Comment: Test Performed by: [id number] Meter #: [id number] Ordering Provider: SILVIA REDDY Report Released Date/Time: Aug 15, 2024 06:14 AM Reporting Lab: [facility] [address] Performing Lab: [facility] [address] GLUCOSE,BLOOD- poct (STL) 151 mg/dL H Aug 14, 2024 04:22 PM [facility] GLUCOSE,BLOOD-poct (STL) Specimen Type: BLOOD Comment: Test Performed by: [id number] Meter #: [id number] Ordering Provider: SILVIA REDDY Report Released Date/Time: Aug 14, 2024 04:52 PM Reporting Lab: [facility] [address] Performing Lab: [facility] [address] GLUCOSE,BLOOD- poct (STL) 129 mg/dL H 72-Aug 14, 2024 11:21 AM [facility] GLUCOSE,BLOOD-poct (STL) Specimen Type: BLOOD Comment: Test Performed by: [id number] Meter #: [id number] Ordering Provider: SILVIA REDDY Report Released Date/Time: Aug 14, 2024 11:37 AM Reporting Lab: [facility] [address] Performing Lab: [facility] [address] GLUCOSE,BLOOD- poct (STL) 135 mg/dL H 72-Aug [...] For additional information, please refer to http://education. Britely. Skyera/faq/WUX570 (This link is being provided for information/ educational purposes only.) Test Performed by [employer], [employer] [facility], [address] [place], [place] Tommie Garcia M.D., Ph.D., Director of Laboratories , [facility] [id number] Ordering Provider: SILVIA REDDY Report Released Date/Time: Aug 11, 2024 03:58 PM Reporting Lab: [facility] [address] [facility] [address] Performing Lab: [facility] [address] [facility] .NIL - QUANTIFERON 0.04 [IU]/mL .MITOGEN-NIL 0.39 [IU]/mL .QUANTIFERON INDETERMINATE NEGATIVE .TB1-NIL <0.00 [IU]/mL .TB2-NIL <0.00 [IU]/mL Aug 14, 2024 06:59 AM [facility] MAGNESIUM Specimen Type: PLASMA Comment: No hemolysis noted. Ordering Provider: SILVIA REDDY Report Released Date/Time: Aug 11, 2024 03:58 PM Reporting Lab: [facility] [address] Performing Lab: [facility] [address] MAGNESIUM 1.9 mg/dL 1.6-2.6 Aug 14, 2024 06:59 AM [facility] B12 Specimen Type: SERUM No comment entered. Ordering Provider: SILVIA REDDY Report Released Date/Time: Aug 11, 2024 03:58 PM Reporting Lab: [facility] [address] Performing Lab: [facility] [place] [phone] B12 757 pg/mL 213-816 Aug 14, 2024 06:59 AM [facility] FOLATE (STL-MA) Specimen Type: SERUM No comment entered. Ordering Provider: SILVIA REDDY Report Released Date/Time: Aug 11, 2024 03:58 PM Reporting Lab: [facility] [place] [phone] Performing Lab: [facility] [place] [phone] FOLATE (L-MA) 6.8 ng/mL L 7-20 Aug 14, 2024 06:59 AM [facility] VITAMIN D, 25-HYDROXY Specimen Type: SERUM No comment entered. Ordering Provider: SILVIA REDDY Report Released Date/Time: Aug 11, 2024 03:58 PM Reporting Lab: [facility] [place] [phone] Performing Lab: [facility] [place] [phone] VITAMIN D, 25-HYDROXY 8.9 ng/mL L 30-96 Aug 14, 2024 06:59 AM [facility] CBC Specimen Type: BLOOD No comment entered. Ordering Provider: SILVIA REDDY Report Released Date/Time: Aug 11, 2024 03:58 PM Reporting Lab: [facility] [place] [id number] Performing Lab: [facility] [place] [id number] WBC 4.1 10*3/uL 3.6-11.2 RBC 3.20 10*6/uL [...] 10*3/uL 0.00-0.20 Aug 14, 2024 06:59 AM [facility] COMPREHENSIVE METABOLIC PANEL Specimen Type: PLASMA Comment: No hemolysis noted. Ordering Provider: SILVIA REDDY Report Released Date/Time: Aug 11, 2024 03:58 PM Reporting Lab: [facility] [phone] Performing Lab: [facility] [place] [phone] CREATININE 0.75 mg/dL 0.70-1.30 UREA NITROGEN 13.6 [...] 95.88 >60 Aug 14, 2024 05:08 AM [facility] [facility] GLUCOSE,BLOOD-poct (STL) Specimen Type: BLOOD Comment: Test Performed by: [id number] Meter #: [id number] Ordering Provider: SILVIA REDDY Report Released Date/Time: Aug 14, 2024 05:52 AM Reporting Lab: [facility] [address] Performing Lab: [facility] [address] GLUCOSE,BLOOD- poct (STL) 135 mg/dL H 72-Aug 13, 2024 04:27 PM [facility] GLUCOSE,BLOOD-poct (STL) Specimen Type: BLOOD Comment: Test Performed by: [id number] Meter #: [id number] Ordering Provider: SILVIA REDDY Report Released Date/Time: Aug 13, 2024 04:41 PM Reporting Lab: [facility] [address] Performing Lab: [facility] [address] GLUCOSE,BLOOD- poct (STL) 181 mg/dL H Aug 13, 2024 11:33 AM [facility] GLUCOSE,BLOOD-poct (STL) Specimen Type: BLOOD Comment: Test Performed by: [id number] Meter #: [id number] Ordering Provider: SILVIA REDDY Report Released Date/Time: Aug 13, 2024 03:55 PM Reporting Lab: [facility] [address] Performing Lab: [facility] [address] GLUCOSE,BLOOD- poct (STL) 140 mg/dL H Aug 13, 2024 05:54 AM [facility] GLUCOSE,BLOOD-poct (STL) Specimen Type: BLOOD Comment: Test Performed by: [id number] Meter #: [id number] Ordering Provider: SILVIA REDDY Report Released Date/Time: Aug 13, 2024 06:20 AM Reporting Lab: [facility] [address] Performing Lab: [facility] [address] GLUCOSE,BLOOD- poct (STL) 112 mg/dL H -Aug 12, 2024 04:35 PM [facility] GLUCOSE,BLOOD-poct (STL) Specimen Type: BLOOD Comment: Test Performed by: [id number] Meter #: [id number] Ordering Provider: SILVIA REDDY Report Released Date/Time: Aug 12, 2024 04:47 PM Reporting Lab: [facility] [address] Performing Lab: [facility] [address] GLUCOSE,BLOOD- poct (STL) 128 mg/dL H -Aug 12, 2024 11:26 AM [facility] GLUCOSE,BLOOD-poct (STL) Specimen Type: BLOOD Comment: Test Performed by: [id number] Meter #: [id number] Ordering Provider: SILVIA REDDY Report Released Date/Time: Aug 12, 2024 11:45 AM Reporting Lab: [facility] [address] Performing Lab: [facility] [address] GLUCOSE,BLOOD- poct (STL) 188 mg/dL H -Aug 12, 2024 06:13 AM [facility] GLUCOSE,BLOOD-poct (STL) Specimen Type: BLOOD Comment: Test Performed by: [id number] Meter #: [id number] Ordering Provider: SILVIA REDDY Report Released Date/Time: Aug 12, 2024 06:25 AM Reporting Lab: [facility] [address] Performing Lab: [facility] [address] GLUCOSE,BLOOD- poct (STL) 116 mg/dL H -Aug 11, 2024 04:10 PM [facility] GLUCOSE,BLOOD-poct (STL) Specimen Type: BLOOD Comment: Test Performed by: [id number] Meter #: [id number] Ordering Provider: SILVIA REDDY Report Released Date/Time: Aug 11, 2024 04:27 PM Reporting Lab: [facility] [address] Performing Lab: [facility] [address] GLUCOSE,BLOOD- poct (STL) 184 mg/dL H 72-99 Aug 11, 2024 01:44 PM [facility] MRSA SURVL NARES DNA [...] Aug 11, 2024 02:03 PM Reporting Lab: [facility] [address] [place] [phone] Performing Lab: [facility] [address] [place] [phone] MRSA SURVL NARES DNA Negative Negative Jul 20, 2024 11:18 AM [facility] APTT Specimen Type: PLASMA No comment entered. Ordering Provider: MANUEL BAIRD Report Released Date/Time: Jul 19, 2024 04:00 PM Reporting Lab: [facility] [address] [place] [phone] Performing Lab: [facility] [address] [place] [phone] APTT 32.1 s 26.7-39.9 Jul 20, 2024 11:18 AM [facility] PT/INR NEW (STL-MA) Specimen Type: PLASMA No comment entered. Ordering Provider: MANUEL BAIRD Report Released Date/Time: Jul 19, 2024 04:00 PM Reporting Lab: [facility] [address] [facility] [address] Performing Lab: [facility] [address] [facility] [address] PROTIME 14.4 s H 9.4-12.5 INR VALUE 1.3 {INR} Jul 20, 2024 11:18 AM [facility] CBC Specimen Type: BLOOD No comment entered. Ordering Provider: MANUEL BAIRD Report Released Date/Time: Jul 19, 2024 04:00 PM Reporting Lab: [facility] [address] [facility] [address] Performing Lab: [facility] [address] [facility] [address] WBC 4.7 10*3/uL 3.6-11.2 RBC 4.86 10*6/uL [...] 10*3/uL 0.00-0.20 IMMATURE [address]T FRACTION 1.6 1.0-7.0 Vital Signs: All taken on the encounter date This section contains inpatient and outpatient Vital Signs collected on the date of the Encounter. Date/Time Temperature Pulse Blood Pressure Respiratory Rate SP02 Pain Height Weight Body Mass Index Source Aug 16, 2024 08:32 PM 98.1 75 101/61 18 95 0 [facility] Aug 16, 2024 09:51 AM 97.7 80 136/85 18 94 [facility] Aug 16, 2024 05:35 AM 97.1 86 96/60 18 92 0 [facility] Advance Directives: All historical and current Section Date Range: From patient's date of to the date document was created. This section includes ALL of a patient's completed or amended [place] Advance and Rescinded Directives. The entries below indicate that a directive exists for the patient, but an actual copy is not included with this document. The data comes from all [place] facilities. Date Advance Directives Provider Source Jan 19, 2017 ADVANCE DIRECTIVE DISCUSSION ERICK BARDALES [facility] Encounter Notes: All associated encounter notes This section contains the clinical notes associated to the Encounter. Date/Time Encounter Note(s) Provider Source Aug 16, 2024 11:39 AM PHYSICAL MEDICINE REHAB NOTE: LOCAL TITLE: PT DAILY STL STANDARD TITLE: PHYSICAL MEDICINE REHAB NOTE DATE OF NOTE: AUG 16, 2024@11:39 ENTRY DATE: AUG 16, 2024@11:39:33 AUTHOR: GERRY CONRAD COSIGNER: URGENCY: STATUS: COMPLETED PHYSICAL THERAPY: daily TX note TIME: 1050 TOTAL TREATMENT TIME: 40 minutes BILLING: ther-ex x 1, gait x 2 Visit #:3 Missed:0 Eval Date: 08/14/2024 Progress Note Due: [...] status: Full History of Presenting Illness (per [facility] H&P note dated 08/11/24): 74 y.o. yo [...] subtotal occlusion of RCA), transferred to [facility] and underwent CABG x3 on07/24. Has known [...] referred for further PT and OT at [facility]. Interval history Patient is seen post [...] at home. PMH: 1) Asthma (SNOMED CT 501611535) 2) Gastro-esophageal reflux disease (SNOMED CT 123290711) 3) Peptic Ulcer Disease * (ICD-9-CM 533.90) 4) Hypertension (SNOMED CT 24768505) 5) Neoplasm of pituitary gland (SNOMED CT 012169428) 6) Hyperlipidemia (SNOMED CT 95779996) 7) Erectile dysfunction associated with type 2 [...] 21) Obstructive Sleep Apnea of Adult (SCT 4027218625082) Equipment Owned: Cane, F22 S: Vet brought up to therapy gym by READING T[employer]OR. Vet agreeable to PT TX. Pain: None throughout --Patient goal(s): Pt reports to walk Learning preferences: [x] Verbal, [x] Visual/Demonstration, [] Written O: GAIT TRAIN: - F22 200' x 2 bouts with overall SPV. Vet demonstrates appropriate use of brakes and seating system. Improved stability and gait speed noted. Reviewed safe use of F22 in home and not to ambulate with device folded. Vet voices understanding and reports son walks with him at home. -Cane x 20' with close SPV and CGA x 1 bout due to staggering gait and LOB. Vet shows poor ability to correct balance. Education provided on cont. use of F22 and not cane at this time. Fall risk is too high and not a safe option, vet voices understanding. -Stairs completes 8x6 with 2 rails and SPV. Vet noted to have weight shift over heels. Cues to improve weight shift, slow speed to ensure proper foot placement on/off step. TRANSFER TRAIN: -Improved sit<>Stand and pivot xfers noted this date. Vet cont. to use LEs to push off surface into standing. Education on improving positioning to decrease use of xfer surface for balance/support. Vet voices understanding. NUSTEP: -Program 3 (hills) L4 x 12 minutes using BLEs for endurance training, 60 steps per minute. Vet left up in [...] 4 6 Sit to stand: 4 6 Chair/zak-cj-ybhpc transf: 4 6 Toilet transfer: Car transfer: [...] [] +4 severe difficulty, cannot continue RPE: 04/10 OUTCOME MEASURES: 30 second sit<>stand: TBD EDUCATION Comprehensive TREATMENT/EDUCATION provided during this stay: [place] verbalized understanding of education/instructions. Somewhat resistive at times [place] given 1:1 instruction on: [place]'s goals PT plan of care rationale of PT unit mobility recommendations Equip use/care Exercise program - seated [place] use of DME- F22 is used for walking only, not as wheelchair, do not walk with use of F22 folded, use F22 only for mobility, not cane or without device Home modifications to improve aging in place, RAMP HISA. Vet receptive A: Vet tolerates session well, target RPE met 4/10. Vet showing carryover from previous sessions, improving duration and safety of gait noted. Cont. education and support needed to ensure learning. Cont. skilled TX needed to maximize safety and recovery. GOALS SHORT TERM GOALS (1 weeks): -Vet will be SPV with bed mobility -Vet will be SPV with bed <> chair transfers -Vet will ambulate 50' with walker and SPV -Vet will ascend/descend 4 steps with B HR and Min A NURSING HOME GOALS (2 weeks): -Vet will be INDEP [...] /es/ GERRY CONRAD PT, DPT, CBIS Signed: 08/16/2024 11:46 GERRY CONRAD [facility]
--- OUTSIDE RECORDS SUMMARY | 2024-11-17 04:13 | XMS_ITS | Encounter Summary ---
Author Name [facility] [place] [facility] [place] [facility] [place] Address [address] [place] [address] Care Team Providers [employer] Driver Name Role Phone MANUEL BAIRD [...] PART A Apr 08, 2017 PART A [id number] ASHLEY FINK PATIENT Selected Encounter This section includes the information on record at [place] for the Encounter. 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 This section includes future appointments and future orders which are active, pending or scheduled. Future Appointments This section includes appointments that were scheduled to occur 6 months from the date of the Encounter, up to a maximum of 20 appointments. The data comes from all [facility] facilities. Appointment Date/Time Appointment Type Appointme nt Facility Name Aug 24, 2024 10:00 AM AMBULATORY - MEDICINE [facility] Aug 24, 2024 10:30 AM AMBULATORY - MEDICINE [facility] Aug 30, 2024 09:30 AM [facility]BULATORY - MEDICINE [facility] Aug 31, 2024 01:00 PM AMBULATORY - SURGERY [facility] Sep 21, 2024 01:30 PM AMBULATORY - MEDICINE [facility] Sep 22, 2024 11:00 AM AMBULATORY - MEDICINE [facility] Sep 29, 2024 12:30 PM AMBULATORY - MEDICINE [facility] Oct 02, 2024 09:30 AM AMBULATORY - MEDICINE [facility] Nov 20, 2024 10:30 AM AMBULATORY - SURGERY [facility] Nov 21, 2024 10:00 AM AMBULATORY - NONE [facility] Dec 11, 2024 10:30 AM AMBULATORY - MEDICINE [facility] Active, Pending, and Scheduled Orders This [...] - Chemistry Order CBC BLOOD STAT SP [facility] Aug 02, 2024 12:00 AM Laboratory - Chemistry Order COMPREHENSIVE METABOLIC PANEL GREEN LI/HEP BLD/PLAS PLASMA SP [facility] Aug 17, 2024 03:47 PM Consult Order [facility] Cons Bedside [facility] Lab Results: +/- 30 days of [...] Range Comment Aug 23, 2024 08:21 AM [facility] MAGNESIUM Specimen Type: PLASMA No comment entered. Ordering Provider: SIMEON REDDY Report Released Date/Time: Aug 22, 2024 11:26 AM Reporting Lab: [facility] [address] Performing Lab: [facility] [address] MAGNESIUM 1.8 mg/dL 1.6-2.6 Aug 23, 2024 08:21 AM [facility] CBC Specimen Type: BLOOD No comment entered. Ordering Provider: SIMEON REDDY Report Released Date/Time: Aug 22, 2024 11:19 AM Reporting Lab: [facility] [address] Performing Lab: [facility] [address] WBC 4.0 10*3/uL 3.6-11.2 RBC 3.65 10*6/uL [...] 10*3/uL 0.00-0.20 Aug 23, 2024 05:12 AM [facility] GLUCOSE,BLOOD-poct (STL) Specimen Type: BLOOD Comment: Test Performed by: [id number] Meter #: [id number] Ordering Provider: SIMEON REDDY Report Released Date/Time: Aug 23, 2024 05:23 AM Reporting Lab: [facility] [address] Performing Lab: [facility] [address] GLUCOSE,BLOOD- poct (STL) 99 mg/dL 72-99 Aug 23, 2024 02:45 AM [facility] OCCULT BLOOD FIT X1 SCREEN Specimen Type: FECES No comment entered. Ordering Provider: SIMEON REDDY Report Released Date/Time: Aug 22, 2024 11:23 AM Reporting Lab: [facility] [address] [place] [address] Performing Lab: [address] [address] OCCULT BLOOD (FIT) #1 OF 1 Negative Negative Aug 22, 2024 07:30 PM [facility] OCCULT BLOOD FIT X1 SCREEN Specimen Type: FECES No comment entered. Ordering Provider: SIMEON REDDY Report Released Date/Time: Aug 22, 2024 11:23 AM Reporting Lab: [facility] [address] [place] [address] Performing Lab: [facility] [address] [place] [address] OCCULT BLOOD (FIT) #1 OF 1 Negative Negative Aug 22, 2024 06:15 PM [facility] OCCULT BLOOD FIT X1 SCREEN Specimen Type: FECES No comment entered. Ordering Provider: SIMEON REDDY Report Released Date/Time: Aug 22, 2024 11:23 AM Reporting Lab: [address] [address] Performing Lab: [address] [address] OCCULT BLOOD (FIT) #1 OF 1 Negative Negative Aug 22, 2024 04:24 PM [facility] GLUCOSE,BLOOD-poct (STL) Specimen Type: BLOOD Comment: Test Performed by: [id number] Meter #: [id number] Ordering Provider: SIMEON REDDY Report Released Date/Time: Aug 22, 2024 04:36 PM Reporting Lab: [facility] [address] Performing Lab: [facility] [address] GLUCOSE,BLOOD- poct (STL) 176 mg/dL H 72-99 Aug 22, 2024 04:23 PM [facility] GLUCOSE,BLOOD-poct (STL) Specimen Type: BLOOD Comment: Test Performed by: [id number] Meter #: [id number] Ordering Provider: SIMEON REDDY Report Released Date/Time: Aug 22, 2024 04:36 PM Reporting Lab: [facility] [address] Performing Lab: [facility] [address] GLUCOSE,BLOOD- poct (STL) 221 mg/dL H 72-99 Aug 22, 2024 11:15 AM [facility] GLUCOSE,BLOOD-poct (STL) Specimen Type: BLOOD Comment: Test Performed by: [id number] Meter #: [id number] Ordering Provider: SIMEON REDDY Report Released Date/Time: Aug 22, 2024 11:27 AM Reporting Lab: [facility] [address] Performing Lab: [facility] [address] GLUCOSE,BLOOD- poct (STL) 140 mg/dL H 72-99 Aug 22, 2024 08:03 AM [facility] FERRITIN Specimen Type: SERUM No comment entered. Ordering Provider: JUDIT PERKINS Report Released Date/Time: Aug 18, 2024 11:01 AM Reporting Lab: [facility] [address] [facility] [address] Performing Lab: [facility] [address] [facility] [address] FERRITIN 79.50 ng/mL 22-275 Aug 22, 2024 08:03 AM [facility] IRON/TIBC PROFILE Specimen Type: SERUM No comment entered. Ordering Provider: JUDIT PERKINS Report Released Date/Time: Aug 18, 2024 11:01 AM Reporting Lab: [facility] [address] [facility] [address] Performing Lab: [facility] [address] [facility] [address] TIBC 283 ug/dL 250-450 TRANSFERRIN 226 mg/dL 163-344 IRON SATURATION 7 L 20-50 IRON 19 ug/dL L 65-175 Aug 22, 2024 08:03 AM [facility] B12 Specimen Type: SERUM No comment entered. Ordering Provider: JUDIT PERKINS Report Released Date/Time: Aug 18, 2024 11:01 AM Reporting Lab: [facility] [address] Performing Lab: [facility] [address] B12 631 pg/mL 213-816 Aug 22, 2024 08:03 AM [facility] COMPREHENSIVE METABOLIC PANEL Specimen Type: PLASMA Comment: No hemolysis noted. Ordering Provider: SIMEON REDDY Report Released Date/Time: Aug 17, 2024 01:18 PM Reporting Lab: [facility] [address] [facility] [address] Performing Lab: [address] [address] CREATININE 0.80 mg/dL 0.7-1.3 UREA NITROGEN 9.7 [...] 94.0 >60 Aug 22, 2024 08:03 AM [facility] CBC Specimen Type: BLOOD No comment entered. Ordering Provider: SIMEON REDDY Report Released Date/Time: Aug 17, 2024 01:18 PM Reporting Lab: [facility] [address] Performing Lab: [facility] [address] WBC 3.5 10*3/uL L 3.6-11.2 RBC 3.23 [...] NRBC% 0 Aug 22, 2024 05:03 AM [facility] GLUCOSE,BLOOD-poct (STL) Specimen Type: BLOOD Comment: Test Performed by: [id number] Meter #: [id number] Ordering Provider: SIMEON REDDY Report Released Date/Time: Aug 22, 2024 06:17 AM Reporting Lab: [facility] [place] [address] Performing Lab: [facility] [place] [address] GLUCOSE,BLOOD- poct (STL) 170 mg/dL H 72-99 Aug 21, 2024 04:32 PM [facility] GLUCOSE,BLOOD-poct (STL) Specimen Type: BLOOD Comment: Test Performed by: [id number] Meter #: [id number] Ordering Provider: SIMEON REDDY Report Released Date/Time: Aug 21, 2024 04:49 PM Reporting Lab: [facility] [place] [address] Performing Lab: [facility] [place] [address] GLUCOSE,BLOOD- poct (STL) 169 mg/dL H 72-Aug 21, 2024 11:53 AM [facility] GLUCOSE,BLOOD-poct (STL) Specimen Type: BLOOD Comment: Test Performed by: [id number] Meter #: [id number] Ordering Provider: SIMEON REDDY Report Released Date/Time: Aug 21, 2024 12:11 PM Reporting Lab: [facility] [address] Performing Lab: [facility] [address] GLUCOSE,BLOOD- poct (STL) 149 mg/dL H -Aug 21, 2024 05:10 AM [facility] GLUCOSE,BLOOD-poct (STL) Specimen Type: BLOOD Comment: Test Performed by: [id number] Meter #: [id number] Ordering Provider: SIMEON REDDY Report Released Date/Time: Aug 21, 2024 05:27 AM Reporting Lab: [facility] [address] Performing Lab: [facility] [address] GLUCOSE,BLOOD- poct (STL) 118 mg/dL H -Aug 20, 2024 04:38 PM [facility] GLUCOSE,BLOOD-poct (STL) Specimen Type: BLOOD Comment: Test Performed by: [id number] Meter #: [id number] Ordering Provider: SIMEON REDDY Report Released Date/Time: Aug 21, 2024 01:55 AM Reporting Lab: [facility] [address] Performing Lab: [facility] [address] GLUCOSE,BLOOD- poct (STL) 169 mg/dL H 72-Aug 20, 2024 04:36 PM [facility] GLUCOSE,BLOOD-poct (STL) Specimen Type: BLOOD Comment: Test Performed by: [id number] Meter #: [id number] Ordering Provider: SIMEON REDDY Report Released Date/Time: Aug 21, 2024 01:55 AM Reporting Lab: [facility] [place] [address] Performing Lab: [facility] [place] [address] GLUCOSE,BLOOD- poct (STL) 395 mg/dL H 72-Aug 20, 2024 11:45 AM [facility] GLUCOSE,BLOOD-poct (STL) Specimen Type: BLOOD Comment: Test Performed by: [id number] Meter #: [id number] Ordering Provider: SIMEON REDDY Report Released Date/Time: Aug 20, 2024 11:56 AM Reporting Lab: [facility] [place] [address] Performing Lab: [facility] [place] [address] GLUCOSE,BLOOD- poct (STL) 169 mg/dL H -Aug 20, 2024 05:06 AM [facility] GLUCOSE,BLOOD-poct (STL) Specimen Type: BLOOD Comment: Test Performed by: [id number] Meter #: [id number] Ordering Provider: SIMEON REDDY Report Released Date/Time: Aug 20, 2024 06:05 AM Reporting Lab: [facility] [place] [address] Performing Lab: [facility] [place] [address] GLUCOSE,BLOOD- poct (STL) 115 mg/dL H 72-Aug 19, 2024 04:23 PM [facility] GLUCOSE,BLOOD-poct (STL) Specimen Type: BLOOD Comment: Test Performed by: [id number] Meter #: [id number] Ordering Provider: SIMEON REDDY Report Released Date/Time: Aug 19, 2024 05:54 PM Reporting Lab: [facility] [address] Performing Lab: [facility] [address] GLUCOSE,BLOOD- poct (STL) 137 mg/dL H 72-Aug 19, 2024 11:28 AM [facility] GLUCOSE,BLOOD-poct (STL) Specimen Type: BLOOD Comment: Test Performed by: [id number] Meter #: [id number] Ordering Provider: SIMEON REDDY Report Released Date/Time: Aug 19, 2024 11:51 AM Reporting Lab: [facility] [address] Performing Lab: [facility] [address] GLUCOSE,BLOOD- poct (STL) 190 mg/dL H Aug 19, 2024 05:21 AM [facility] GLUCOSE,BLOOD-poct (STL) Specimen Type: BLOOD Comment: Test Performed by: [id number] Meter #: [id number] Ordering Provider: SIMEON REDDY Report Released Date/Time: Aug 19, 2024 05:56 AM Reporting Lab: [facility] [address] Performing Lab: [facility] [address] GLUCOSE,BLOOD- poct (STL) 130 mg/dL H Aug 18, 2024 04:49 PM [facility] GLUCOSE,BLOOD-poct (STL) Specimen Type: BLOOD Comment: Test Performed by: [id number] Meter #: [id number] Ordering Provider: SIMEON REDDY Report Released Date/Time: Aug 18, 2024 05:01 PM Reporting Lab: [facility] [address] Performing Lab: [facility] [address] GLUCOSE,BLOOD- poct (STL) 129 mg/dL H -Aug 18, 2024 11:23 AM [facility] GLUCOSE,BLOOD-poct (STL) Specimen Type: BLOOD Comment: Test Performed by: [id number] Meter #: [id number] Ordering Provider: SIMEON REDDY Report Released Date/Time: Aug 18, 2024 11:41 AM Reporting Lab: [facility] [address] Performing Lab: [facility] [address] GLUCOSE,BLOOD- poct (STL) 180 mg/dL H Aug 18, 2024 05:08 AM [facility] GLUCOSE,BLOOD-poct (STL) Specimen Type: BLOOD Comment: Test Performed by: [id number] Meter #: [id number] Ordering Provider: SIMEON REDDY Report Released Date/Time: Aug 18, 2024 05:31 AM Reporting Lab: [facility] [address] Performing Lab: [facility] [address] GLUCOSE,BLOOD- poct (STL) 127 mg/dL H Aug 17, 2024 07:32 PM [facility] GLUCOSE,BLOOD-poct (STL) Specimen Type: BLOOD Comment: Test Performed by: [id number] Meter #: [id number] Ordering Provider: SIMEON REDDY Report Released Date/Time: Aug 17, 2024 07:59 PM Reporting Lab: [facility] [address] Performing Lab: [facility] [address] GLUCOSE,BLOOD- poct (STL) 154 mg/dL H Aug 17, 2024 04:24 PM [facility] GLUCOSE,BLOOD-poct (STL) Specimen Type: BLOOD Comment: Test Performed by: [id number] Meter #: [id number] Ordering Provider: SIMEON REDDY Report Released Date/Time: Aug 17, 2024 04:35 PM Reporting Lab: [facility] [place] [address] Performing Lab: [facility] [place] [address] GLUCOSE,BLOOD- poct (STL) 178 mg/dL H -Aug 17, 2024 05:09 AM [facility] GLUCOSE,BLOOD-poct (STL) Specimen Type: BLOOD Comment: Test Performed by: [id number] Meter #: [id number] Ordering Provider: SIMEON REDDY Report Released Date/Time: Aug 17, 2024 05:54 AM Reporting Lab: [facility] [place] [address] Performing Lab: [facility] [place] [address] GLUCOSE,BLOOD- poct (STL) 124 mg/dL H -Aug 16, 2024 07:40 PM [facility] GLUCOSE,BLOOD-poct (STL) Specimen Type: BLOOD Comment: Test Performed by: [id number] Meter #: [id number] Ordering Provider: SIMEON REDDY Report Released Date/Time: Aug 16, 2024 08:28 PM Reporting Lab: [facility] [place] [address] Performing Lab: [facility] [place] [address] GLUCOSE,BLOOD- poct (STL) 144 mg/dL H 72-Aug 16, 2024 04:19 PM [facility] GLUCOSE,BLOOD-poct (STL) Specimen Type: BLOOD Comment: Test Performed by: [id number] Meter #: [id number] Ordering Provider: SIMEON REDDY Report Released Date/Time: Aug 16, 2024 04:45 PM Reporting Lab: [facility] [address] Performing Lab: [facility] [address] GLUCOSE,BLOOD- poct (STL) 138 mg/dL H -Aug 16, 2024 11:52 AM [facility] GLUCOSE,BLOOD-poct (STL) Specimen Type: BLOOD Comment: Test Performed by: [id number] Meter #: [id number] Ordering Provider: SIMEON REDDY Report Released Date/Time: Aug 16, 2024 12:04 PM Reporting Lab: [facility] [address] Performing Lab: [facility] [address] GLUCOSE,BLOOD- poct (STL) 135 mg/dL H Aug 16, 2024 05:24 AM [facility] GLUCOSE,BLOOD-poct (STL) Specimen Type: BLOOD Comment: Test Performed by: [id number] Meter #: [id number] Ordering Provider: SIMEON REDDY Report Released Date/Time: Aug 16, 2024 05:38 AM Reporting Lab: [facility] [address] Performing Lab: [facility] [address] GLUCOSE,BLOOD- poct (STL) 151 mg/dL H Aug 15, 2024 07:31 PM [facility] GLUCOSE,BLOOD-poct (STL) Specimen Type: BLOOD Comment: Test Performed by: [id number] Meter #: [id number] Ordering Provider: SIMEON REDDY Report Released Date/Time: Aug 15, 2024 08:07 PM Reporting Lab: [facility] [address] Performing Lab: [facility] [address] GLUCOSE,BLOOD- poct (STL) 173 mg/dL H Aug 15, 2024 04:18 PM [facility] GLUCOSE,BLOOD-poct (STL) Specimen Type: BLOOD Comment: Test Performed by: [id number] Meter #: [id number] Ordering Provider: SIMEON REDDY Report Released Date/Time: Aug 15, 2024 04:59 PM Reporting Lab: [facility] [address] Performing Lab: [facility] [address] GLUCOSE,BLOOD- poct (STL) 136 mg/dL H Aug 15, 2024 04:16 PM [facility] GLUCOSE,BLOOD-poct (STL) Specimen Type: BLOOD Comment: Test Performed by: [id number] Meter #: [id number] Ordering Provider: SIMEON REDDY Report Released Date/Time: Aug 15, 2024 04:59 PM Reporting Lab: [facility] [address] Performing Lab: [facility] [address] GLUCOSE,BLOOD- poct (STL) 194 mg/dL H Aug 15, 2024 11:39 AM [facility] GLUCOSE,BLOOD-poct (STL) Specimen Type: BLOOD Comment: Test Performed by: [id number] Meter #: [id number] Ordering Provider: SIMEON REDDY Report Released Date/Time: Aug 15, 2024 12:00 PM Reporting Lab: [facility] [address] Performing Lab: [facility] [address] GLUCOSE,BLOOD- poct (STL) 127 mg/dL H Aug 15, 2024 05:07 AM [facility] GLUCOSE,BLOOD-poct (STL) Specimen Type: BLOOD Comment: Test Performed by: [id number] Meter #: [id number] Ordering Provider: SIMEON REDDY Report Released Date/Time: Aug 15, 2024 06:14 AM Reporting Lab: [facility] [place] [address] Performing Lab: [facility] [place] [address] GLUCOSE,BLOOD- poct (STL) 151 mg/dL H 72-Aug 14, 2024 04:22 PM [facility] GLUCOSE,BLOOD-poct (STL) Specimen Type: BLOOD Comment: Test Performed by: [id number] Meter #: [id number] Ordering Provider: SIMEON REDDY Report Released Date/Time: Aug 14, 2024 04:52 PM Reporting Lab: [facility] [place] [address] Performing Lab: [facility] [place] [address] GLUCOSE,BLOOD- poct (STL) 129 mg/dL H -Aug 14, 2024 11:21 AM [facility] GLUCOSE,BLOOD-poct (STL) Specimen Type: BLOOD Comment: Test Performed by: [id number] Meter #: [id number] Ordering Provider: SIMEON REDDY Report Released Date/Time: Aug 14, 2024 11:37 AM Reporting Lab: [facility] [place] [address] Performing Lab: [facility] [place] [address] GLUCOSE,BLOOD- poct (STL) 135 mg/dL H 72-Aug 14, 2024 06:59 AM [facility] QUANTIFERON-TB,4 TUBE Specimen Type: BLOOD [...] For additional information, please refer to http://education. Xiaoi Robert. [employer]/faq/GEN649 (This link is being provided for information/ educational purposes only.) Test Performed by [employer] [place], [employer] [facility], [address] [place] [address] Tommie Garcia M.D., Ph.D., Director of Laboratories , [facility] [id number] Ordering Provider: SIMEON REDDY Report Released Date/Time: Aug 11, 2024 03:58 PM Reporting Lab: [facility] [address] [place] [id number] Performing Lab: [facility] [address] [place] [address] .NIL - QUANTIFERON 0.04 [IU]/mL .MITOGEN-NIL 0.39 [IU]/mL .QUANTIFERON INDETERMINATE NEGATIVE .TB1-NIL <0.00 [IU]/mL .TB2-NIL <0.00 [IU]/mL Aug 14, 2024 06:59 AM [facility] MAGNESIUM Specimen Type: PLASMA Comment: No hemolysis noted. Ordering Provider: SIMEON REDDY Report Released Date/Time: Aug 11, 2024 03:58 PM Reporting Lab: [facility] [address] [facility] [id number] Performing Lab: [facility] [id number] MAGNESIUM 1.9 mg/dL 1.6-2.6 Aug 14, 2024 06:59 AM [facility] B12 Specimen Type: SERUM No comment entered. Ordering Provider: SIMEON REDDY Report Released Date/Time: Aug 11, 2024 03:58 PM Reporting Lab: [facility] [facility] [address] Performing Lab: [facility] [address] B12 757 pg/mL 213-816 Aug 14, 2024 06:59 AM [facility] FOLATE (L-MA) Specimen Type: SERUM No comment entered. Ordering Provider: SIMEON REDDY Report Released Date/Time: Aug 11, 2024 03:58 PM Reporting Lab: [facility] [address] Performing Lab: [facility] [address] FOLATE (L-MA) 6.8 ng/mL L 7-20 Aug 14, 2024 06:59 AM [facility] VITAMIN D, 25-HYDROXY Specimen Type: SERUM No comment entered. Ordering Provider: SIMEON REDDY Report Released Date/Time: Aug 11, 2024 03:58 PM Reporting Lab: [facility] [address] Performing Lab: [facility] [address] VITAMIN D, 25-HYDROXY 8.9 ng/mL L 30-96 Aug 14, 2024 06:59 AM [facility] COMPREHENSIVE METABOLIC PANEL Specimen Type: PLASMA Comment: No hemolysis noted. Ordering Provider: SIMEON REDDY Report Released Date/Time: Aug 11, 2024 03:58 PM Reporting Lab: [facility] [address] Performing Lab: [facility] [address] CREATININE 0.75 mg/dL 0.70-1.30 UREA NITROGEN 13.6 [...] 95.88 >60 Aug 14, 2024 06:59 AM [facility] CBC Specimen Type: BLOOD No comment entered. Ordering Provider: SIMEON REDDY Report Released Date/Time: Aug 11, 2024 03:58 PM Reporting Lab: [facility] [address] Performing Lab: [facility] [address] WBC 4.1 10*3/uL 3.6-11.2 RBC 3.20 10*6/uL [...] 10*3/uL 0.00-0.20 Aug 14, 2024 05:08 AM [facility] GLUCOSE,BLOOD-poct (STL) Specimen Type: BLOOD Comment: Test Performed by: [id number] Meter #: [id number] Ordering Provider: SIMEON REDDY Report Released Date/Time: Aug 14, 2024 05:52 AM Reporting Lab: [facility] [address] Performing Lab: [facility] [address] GLUCOSE,BLOOD- poct (STL) 135 mg/dL H -Aug 13, 2024 04:27 PM [facility] GLUCOSE,BLOOD-poct (STL) Specimen Type: BLOOD Comment: Test Performed by: [id number] Meter #: [id number] Ordering Provider: SIMEON REDDY Report Released Date/Time: Aug 13, 2024 04:41 PM Reporting Lab: [facility] [address] Performing Lab: [facility] [address] GLUCOSE,BLOOD- poct (STL) 181 mg/dL H -Aug 13, 2024 11:33 AM [facility] GLUCOSE,BLOOD-poct (STL) Specimen Type: BLOOD Comment: Test Performed by: [id number] Meter #: [id number] Ordering Provider: SIMEON REDDY Report Released Date/Time: Aug 13, 2024 03:55 PM Reporting Lab: [facility] [address] Performing Lab: [facility] [address] GLUCOSE,BLOOD- poct (STL) 140 mg/dL H -Aug 13, 2024 05:54 AM [facility] GLUCOSE,BLOOD-poct (STL) Specimen Type: BLOOD Comment: Test Performed by: [id number] Meter #: [id number] Ordering Provider: SIMEON REDDY Report Released Date/Time: Aug 13, 2024 06:20 AM Reporting Lab: [facility] [address] Performing Lab: [facility] [address] GLUCOSE,BLOOD- poct (STL) 112 mg/dL H -Aug 12, 2024 04:35 PM [facility] GLUCOSE,BLOOD-poct (STL) Specimen Type: BLOOD Comment: Test Performed by: [id number] Meter #: [id number] Ordering Provider: SIMEON REDDY Report Released Date/Time: Aug 12, 2024 04:47 PM Reporting Lab: [facility] [address] Performing Lab: [facility] [address] GLUCOSE,BLOOD- poct (STL) 128 mg/dL H -Aug 12, 2024 11:26 AM [facility] GLUCOSE,BLOOD-poct (STL) Specimen Type: BLOOD Comment: Test Performed by: [id number] Meter #: [id number] Ordering Provider: SIMEON REDDY Report Released Date/Time: Aug 12, 2024 11:45 AM Reporting Lab: [facility] [address] Performing Lab: [facility] [address] GLUCOSE,BLOOD- poct (STL) 188 mg/dL H -Aug 12, 2024 06:13 AM [facility] GLUCOSE,BLOOD-poct (STL) Specimen Type: BLOOD Comment: Test Performed by: [id number] Meter #: [id number] Ordering Provider: SIMEON REDDY Report Released Date/Time: Aug 12, 2024 06:25 AM Reporting Lab: [facility] [address] Performing Lab: [facility] [address] GLUCOSE,BLOOD- poct (STL) 116 mg/dL H 72-99 Aug 11, 2024 04:10 PM [facility] GLUCOSE,BLOOD-poct (STL) Specimen Type: BLOOD Comment: Test Performed by: [id number] Meter #: [id number] Ordering Provider: SIMEON REDDY Report Released Date/Time: Aug 11, 2024 04:27 PM Reporting Lab: [facility] [address] Performing Lab: [facility] [address] GLUCOSE,BLOOD- poct (STL) 184 mg/dL H 72-99 Aug 11, 2024 01:44 PM [facility] MRSA SURVL NARES DNA Specimen [...] 11, 2024 02:03 PM Reporting Lab: [facility] [address] [facility] [address] Performing Lab: [address] [address] MRSA SURVL NARES DNA Negative Negative Jul 20, 2024 11:18 AM [facility] APTT Specimen Type: PLASMA No comment entered. Ordering Provider: MANUEL BAIRD Report Released Date/Time: Jul 19, 2024 04:00 PM Reporting Lab: [facility] [address] [place] [id number] Performing Lab: [address] [address] APTT 32.1 s 26.7-39.9 Jul 20, 2024 11:18 AM [facility] PT/INR NEW (ST-[place]) Specimen Type: PLASMA No comment entered. Ordering Provider: MANUEL BAIRD Report Released Date/Time: Jul 19, 2024 04:00 PM Reporting Lab: [address] [address] Performing Lab: [address] [address] PROTIME 14.4 s H 9.4-12.5 INR VALUE 1.3 {INR} Jul 20, 2024 11:18 AM [facility] CBC Specimen Type: BLOOD No comment entered. Ordering Provider: MANUEL BAIRD Report Released Date/Time: Jul 19, 2024 04:00 PM Reporting Lab: [address] [address] Performing Lab: [address] [address] WBC 4.7 10*3/uL 3.6-11.2 RBC 4.86 10*6/uL [...] PM 98.1 75 101/61 18 95 0 [facility] Aug 16, 2024 09:51 AM 97.7 80 136/85 18 94 [facility] Aug 16, 2024 05:35 AM 97.1 86 96/60 18 92 0 [facility] Advance Directives: All historical [...] 19, 2017 ADVANCE DIRECTIVE DISCUSSION ERICK BARDALES [facility] Encounter Notes: All associated encounter notes This section contains the clinical notes associated to the Encounter. Date/Time Encounter Note(s) Provider Source Aug 16, 2024 12:49 PM [facility] NOTE: LOCAL TITLE: [facility] NOTE [facility] STANDARD TITLE: [facility] NOTE DATE OF NOTE: AUG 16, 2024@12:49 ENTRY DATE: AUG 16, 2024@12:49:42 AUTHOR: SIMEON REDDY COSIGNER: URGENCY: STATUS: COMPLETED This is a 74 year old, DECLINED TO ANSWER MALE with a chief complaint of: in good spirits but reports he is feeling cold this am. No fever or chills, no sob, no cp. Awaiting for therapy. Received voice message from Imelda Rudolph NP for cardiology. She had received a message from [facility] TEST MANAGER that Mr. Fink should be on coreg 3.125mg bid. Will resume today. bp is stable. Toe nails debrided x 10. Feet washed and A& D applied. Removed dressing from incisions d/t peeling off see below for assessment. REVIEW OF SYSTEMS: Pain:denies Bowels: bm today Sleep:sleeping off and on felt cold Weight:stable for past few readings, no n/v, no abd pain With the [...] VITAMIN D) PO MO@1700 x 8 weeks 17) CARVEDILOL TAB PO CC BID 3.125MG Recent Vital Signs: Temperature: 97.7 F [36.5 C] (08/16/2024 09:51) BP: 136/85 (08/16/2024 09:51) Pulse: 80 (08/16/2024 09:51) Resp: 18 (08/16/2024 09:51) Pain Scores: Measurement DT PAIN 08/16/2024 05:35 0 08/15/2024 20:08 0 08/15/2024 12:19 0 08/15/2024 10:00 0 08/14/2024 20:00 0 08/14/2024 10:26 0 Weight: Measurement DT WEIGHT LB(KG)[BMI] 08/13/2024 10:48 211.9(96.12)[30*] 08/12/2024 12:41 212.3(96.30)[31*] 08/11/2024 14:26 211.1(95.75)[30*] 06/29/2024 12:58 241.3(109.45)[35*] 06/19/2024 06:20 234(106.14)[34*] 06/07/2024 11:53 231.7(105.10)[33*] 06/05/2024 08:06 235.7(106.91)[34*] 05/17/2024 08:37 233.1(105.73)[34*] 04/07/2024 10:01 231(104.78)[33*] 02/17/2024 12:10 227.2(103.06)[33*] 02/10/2024 11:09 228.9(103.83)[33*] 02/02/2024 10:03 230.3(104.46)[33*] PHYSICAL EXAM : GEN: NAD, up in chair HRR Lungs CTA Debrided long toe nails x 10 without difficulty Heart: RRR, no murmurs, S1, S2, midline incision to chest healing well scabs, no redness, dressing removed small sluffed area upper chest incision. Cleansed with wound cleanser and aquacel dressing applied. pacemaker/defib with steri strips intact, no redness, no drainage. Lungs:Clear to auscultation, no wheezing ABD: soft, nontender, BSx4, 3 small incsions epigastric areas with scabs Genitourinary: Patient voiding without difficulty Musculoskeletal: Extremities mobile Neurological: A&O x3, grossly intact, Skin: L medial arm incision dries peeling dressing removed and site cleansed with wound cleanser small sluffed area mid forearm. Aquacel dressing applied. ASSESSMENT & PLAN: #CAD, s/p CABGx3, started on Plavix and continued on aspirin, statin, but Coreg held due to hypotension and now has been restarted per request of [facility]. Cardilology. Patient now has pacemaker for complete heart block. Follow-up with CT surgery in 4 weeks. 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 Entresto held due to relative hypotension. Also home regimen of Bumex is stopped and patient does not have any lower extremity edema. -restarted Coreg today and continue isosorbide -monitor bp #DM2, A1c reported 7.5%. Patient has been on high-dose of Lantus at home, metformin, Ozempic. He did report weight loss with Ozempic initially. -Due to hypoglycemia, insulin, metformin, & Ozempic discontinued. He is on sliding scale only. Blood sugars stable will monitor # All medications including non-VA and OTC [...] Life Sustaining Treatment Orders /es/ Simeon Reddy APN,[employer]ANCE SYSTEMS OPERATOR-BC Advanced Practice Nurse Signed: 08/16/2024 14:42 Receipt Acknowledged By: 08/16/2024 15:17 /shen/ JUDIT PERKINS PHYSICIAN SIMEON WANG [facility]
--- OUTSIDE RECORDS SUMMARY | 2024-11-17 04:13 | XMS_ITS ---
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 Date/Time Encounter Type Encounter Description Reason Pro vider Source Aug 16, 2024 09:46 AM Inpatient Visit DAILY HOSPITALIZATION DATA [facility] [...] Aug 30, 2024 09:30 AM AMBULATORY MEDICINE [facility] Aug 31, 2024 01:00 PM AMBULATORY - SURGERY [facility] Sep 21, 2024 01:30 PM AMBULATORY - MEDICINE [facility] Sep 22, 2024 11:00 AM AMBULATORY - MEDICINE [facility] Sep 29, 2024 12:30 PM AMBULATORY - MEDICINE [facility] Oct 02, 2024 09:30 AM AMBULATORY - MEDICINE [facility] Nov 20, 2024 10:30 AM AMBULATORY - SURGERY [facility] Nov 21, 2024 10:00 AM AMBULATORY - NONE [facility] Dec 11, 2024 10:30 AM AMBULATORY - MEDICINE [facility] Active, Pending, and Scheduled Orders [...] Order CBC BLOOD STAT SP [facility] Aug 02, 2024 12:00 AM Laboratory - Chemistry Order COMPREHENSIVE METABOLIC PANEL GREEN LI/HEP BLD/PLAS PLASMA SP [facility] Aug 17, 2024 03:47 PM Consult Order [facility] Cons Bedside [facility] Lab Results: [...] Range Comment Aug 23, 2024 08:21 AM [facility] MAGNESIUM Specimen Type: PLASMA No comment entered. Ordering Provider: SILVIA REDDY Report Released Date/Time: Aug 22, 2024 11:26 AM Reporting Lab: [facility] [address] Performing Lab: [facility] [address] MAGNESIUM 1.8 mg/dL 1.6-2.6 Aug 23, 2024 08:21 AM [facility] CBC Specimen Type: BLOOD No comment entered. Ordering Provider: SILVIA REDDY Report Released Date/Time: Aug 22, 2024 11:19 AM Reporting Lab: [facility] [address] Performing Lab: [facility] [address] WBC 4.0 10*3/uL 3.6-11.2 RBC 3.65 10*6/uL [...] 10*3/uL 0.00-0.20 Aug 23, 2024 05:12 AM [facility] GLUCOSE,BLOOD-poct (STL) Specimen Type: BLOOD Comment: Test Performed by: [id number] Meter #: [id number] Ordering Provider: SILVIA REDDY Report Released Date/Time: Aug 23, 2024 05:23 AM Reporting Lab: [facility] [address] Performing Lab: [facility] [address] GLUCOSE,BLOOD- poct (STL) 99 mg/dL 72-99 Aug 23, 2024 02:45 AM [facility] OCCULT BLOOD FIT X1 SCREEN Specimen Type: FECES No comment entered. Ordering Provider: SILVIA REDDY Report Released Date/Time: Aug 22, 2024 11:23 AM Reporting Lab: [address] [address] Performing Lab: [address] [address] OCCULT BLOOD (FIT) #1 OF 1 Negative Negative Aug 22, 2024 07:30 PM [facility] OCCULT BLOOD FIT X1 SCREEN Specimen Type: FECES No comment entered. Ordering Provider: SILVIA REDDY Report Released Date/Time: Aug 22, 2024 11:23 AM Reporting Lab: [address] [address] Performing Lab: [address] [address] OCCULT BLOOD (FIT) #1 OF 1 Negative Negative Aug 22, 2024 06:15 PM [facility] OCCULT BLOOD FIT X1 SCREEN Specimen Type: FECES No comment entered. Ordering Provider: SILVIA REDDY Report Released Date/Time: Aug 22, 2024 11:23 AM Reporting Lab: [address] [address] Performing Lab: [facility] [address] [facility] [address] OCCULT BLOOD (FIT) #1 OF 1 Negative Negative Aug 22, 2024 04:24 PM [facility] GLUCOSE,BLOOD-poct (STL) Specimen Type: BLOOD Comment: Test Performed by: [id number] Meter #: [id number] Ordering Provider: SILVIA REDDY Report Released Date/Time: Aug 22, 2024 04:36 PM Reporting Lab: [facility] [address] Performing Lab: [facility] [address] GLUCOSE,BLOOD- poct (STL) 176 mg/dL H -Aug 22, 2024 04:23 PM [facility] GLUCOSE,BLOOD-poct (STL) Specimen Type: BLOOD Comment: Test Performed by: [id number] Meter #: [id number] Ordering Provider: SILVIA REDDY Report Released Date/Time: Aug 22, 2024 04:36 PM Reporting Lab: [facility] [address] Performing Lab: [facility] [address] GLUCOSE,BLOOD- poct (STL) 221 mg/dL H 72-Aug 22, 2024 11:15 AM [facility] GLUCOSE,BLOOD-poct (STL) Specimen Type: BLOOD Comment: Test Performed by: [id number] Meter #: [id number] Ordering Provider: SILVIA REDDY Report Released Date/Time: Aug 22, 2024 11:27 AM Reporting Lab: [facility] [address] Performing Lab: [facility] [address] GLUCOSE,BLOOD- poct (STL) 140 mg/dL H 72-Aug 22, 2024 08:03 AM [facility] FERRITIN Specimen Type: SERUM No comment entered. Ordering Provider: JUDIT PERKINS Report Released Date/Time: Aug 18, 2024 11:01 AM Reporting Lab: [facility] [address] [facility] [address] Performing Lab: [facility] [address] [facility] [address] FERRITIN 79.50 ng/mL 22-275 Aug 22, 2024 08:03 AM [facility] IRON/TIBC PROFILE Specimen Type: SERUM No comment entered. Ordering Provider: JUDIT PERKINS Report Released Date/Time: Aug 18, 2024 11:01 AM Reporting Lab: [address] [address] Performing Lab: [address] [address] TIBC 283 ug/dL 250-450 TRANSFERRIN 226 mg/dL 163-344 IRON SATURATION 7 L 20-50 IRON 19 ug/dL L 65-175 Aug 22, 2024 08:03 AM [facility] B12 Specimen Type: SERUM No comment entered. Ordering Provider: JUDIT PERKINS Report Released Date/Time: Aug 18, 2024 11:01 AM Reporting Lab: [facility] [address] Performing Lab: [facility] [address] B12 631 pg/mL 213-816 Aug 22, 2024 08:03 AM [facility] COMPREHENSIVE METABOLIC PANEL Specimen Type: PLASMA Comment: No hemolysis noted. Ordering Provider: SILVIA REDDY Report Released Date/Time: Aug 17, 2024 01:18 PM Reporting Lab: [facility] [address] [facility] [address] Performing Lab: [address] [address] CREATININE 0.80 mg/dL 0.7-1.3 UREA NITROGEN 9.7 [...] [facility] [address] Performing Lab: [facility] [address] WBC 3.5 10*3/uL L 3.6-11.2 RBC 3.23 [...] NRBC% 0 Aug 22, 2024 05:03 AM [facility] GLUCOSE,BLOOD-poct (STL) Specimen Type: BLOOD Comment: Test Performed by: [id number] Meter #: [id number] Ordering Provider: SILVIA REDDY Report Released Date/Time: Aug 22, 2024 06:17 AM Reporting Lab: [facility] [address] Performing Lab: [facility] [address] GLUCOSE,BLOOD- poct (STL) 170 mg/dL H 72-Aug 21, 2024 04:32 PM [facility] GLUCOSE,BLOOD-poct (STL) Specimen Type: BLOOD Comment: Test Performed by: [id number] Meter #: [id number] Ordering Provider: SILVIA REDDY Report Released Date/Time: Aug 21, 2024 04:49 PM Reporting Lab: [facility] [address] Performing Lab: [facility] [address] GLUCOSE,BLOOD- poct (STL) 169 mg/dL H -99 Aug 21, 2024 11:53 AM [facility] GLUCOSE,BLOOD-poct (STL) Specimen Type: BLOOD Comment: Test Performed by: [id number] Meter #: [id number] Ordering Provider: SILVIA REDDY Report Released Date/Time: Aug 21, 2024 12:11 PM Reporting Lab: [facility] [address] Performing Lab: [facility] [address] GLUCOSE,BLOOD- poct (STL) 149 mg/dL H 72-99 Aug 21, 2024 05:10 AM [facility] GLUCOSE,BLOOD-poct (STL) Specimen Type: BLOOD Comment: Test Performed by: [id number] Meter #: [id number] Ordering Provider: SILVIA REDDY Report Released Date/Time: Aug 21, 2024 05:27 AM Reporting Lab: [facility] [place] [address] Performing Lab: [facility] [address] [place] [phone] GLUCOSE,BLOOD- poct (STL) 118 mg/dL H 72-99 Aug 20, 2024 04:38 PM [facility] GLUCOSE,BLOOD-poct (STL) Specimen Type: BLOOD Comment: Test Performed by: [id number] Meter #: [id number] Ordering Provider: SILVIA REDDY Report Released Date/Time: Aug 21, 2024 01:55 AM Reporting Lab: [facility] [place] [address] Performing Lab: [facility] [place] [address] GLUCOSE,BLOOD- poct (STL) 169 mg/dL H 72-Aug 20, 2024 04:36 PM [facility] GLUCOSE,BLOOD-poct (STL) Specimen Type: BLOOD Comment: Test Performed by: [id number] Meter #: [id number] Ordering Provider: SILVIA REDDY Report Released Date/Time: Aug 21, 2024 01:55 AM Reporting Lab: [facility] [place] [address] Performing Lab: [facility] [place] [address] GLUCOSE,BLOOD- poct (STL) 395 mg/dL H 72-99 Aug 20, 2024 11:45 AM [facility] GLUCOSE,BLOOD-poct (STL) Specimen Type: BLOOD Comment: Test Performed by: [id number] Meter #: [id number] Ordering Provider: SILVIA REDDY Report Released Date/Time: Aug 20, 2024 11:56 AM Reporting Lab: [facility] [address] Performing Lab: [facility] [address] GLUCOSE,BLOOD- poct (STL) 169 mg/dL H 72-Aug 20, 2024 05:06 AM [facility] GLUCOSE,BLOOD-poct (STL) Specimen Type: BLOOD Comment: Test Performed by: [id number] Meter #: [id number] Ordering Provider: SILVIA REDDY Report Released Date/Time: Aug 20, 2024 06:05 AM Reporting Lab: [facility] [address] Performing Lab: [facility] [address] GLUCOSE,BLOOD- poct (STL) 115 mg/dL H 72-Aug 19, 2024 04:23 PM [facility] GLUCOSE,BLOOD-poct (STL) Specimen Type: BLOOD Comment: Test Performed by: [id number] Meter #: [id number] Ordering Provider: SILVIA REDDY Report Released Date/Time: Aug 19, 2024 05:54 PM Reporting Lab: [facility] [address] Performing Lab: [facility] [address] GLUCOSE,BLOOD- poct (STL) 137 mg/dL H 72-99 Aug 19, 2024 11:28 AM [facility] GLUCOSE,BLOOD-poct (STL) Specimen Type: BLOOD Comment: Test Performed by: [id number] Meter #: [id number] Ordering Provider: SILVIA REDDY Report Released Date/Time: Aug 19, 2024 11:51 AM Reporting Lab: [facility] [address] Performing Lab: [facility] [address] GLUCOSE,BLOOD- poct (STL) 190 mg/dL H 72-99 Aug 19, 2024 05:21 AM [facility] GLUCOSE,BLOOD-poct (STL) Specimen Type: BLOOD Comment: Test Performed by: [id number] Meter #: [id number] Ordering Provider: SILVIA REDDY Report Released Date/Time: Aug 19, 2024 05:56 AM Reporting Lab: [facility] [address] Performing Lab: [facility] [address] GLUCOSE,BLOOD- poct (STL) 130 mg/dL H Aug 18, 2024 04:49 PM [facility] GLUCOSE,BLOOD-poct (STL) Specimen Type: BLOOD Comment: Test Performed by: [id number] Meter #: [id number] Ordering Provider: SILVIA REDDY Report Released Date/Time: Aug 18, 2024 05:01 PM Reporting Lab: [facility] [address] Performing Lab: [facility] [address] GLUCOSE,BLOOD- poct (STL) 129 mg/dL H Aug 18, 2024 11:23 AM [facility] GLUCOSE,BLOOD-poct (STL) Specimen Type: BLOOD Comment: Test Performed by: [id number] Meter #: [id number] Ordering Provider: SILVIA REDDY Report Released Date/Time: Aug 18, 2024 11:41 AM Reporting Lab: [facility] [address] Performing Lab: [facility] [address] GLUCOSE,BLOOD- poct (STL) 180 mg/dL H Aug 18, 2024 05:08 AM [facility] GLUCOSE,BLOOD-poct (STL) Specimen Type: BLOOD Comment: Test Performed by: [id number] Meter #: [id number] Ordering Provider: SILVIA REDDY Report Released Date/Time: Aug 18, 2024 05:31 AM Reporting Lab: [facility] [place] [address] Performing Lab: [facility] [address] GLUCOSE,BLOOD- poct (STL) 127 mg/dL H -Aug 17, 2024 07:32 PM [facility] GLUCOSE,BLOOD-poct (STL) Specimen Type: BLOOD Comment: Test Performed by: [id number] Meter #: [id number] Ordering Provider: SILVIA REDDY Report Released Date/Time: Aug 17, 2024 07:59 PM Reporting Lab: [facility] [place] [address] Performing Lab: [facility] [place] [address] GLUCOSE,BLOOD- poct (STL) 154 mg/dL H -Aug 17, 2024 04:24 PM [facility] GLUCOSE,BLOOD-poct (STL) Specimen Type: BLOOD Comment: Test Performed by: [id number] Meter #: [id number] Ordering Provider: SILVIA REDDY Report Released Date/Time: Aug 17, 2024 04:35 PM Reporting Lab: [facility] [place] [address] Performing Lab: [facility] [place] [address] GLUCOSE,BLOOD- poct (STL) 178 mg/dL H -Aug 17, 2024 05:09 AM [facility] GLUCOSE,BLOOD-poct (STL) Specimen Type: BLOOD Comment: Test Performed by: [id number] Meter #: [id number] Ordering Provider: SILVIA REDDY Report Released Date/Time: Aug 17, 2024 05:54 AM Reporting Lab: [facility] [address] Performing Lab: [facility] [address] GLUCOSE,BLOOD- poct (STL) 124 mg/dL H 72-Aug 16, 2024 07:40 PM [facility] GLUCOSE,BLOOD-poct (STL) Specimen Type: BLOOD Comment: Test Performed by: [id number] Meter #: [id number] Ordering Provider: SILVIA REDDY Report Released Date/Time: Aug 16, 2024 08:28 PM Reporting Lab: [facility] [address] Performing Lab: [facility] [address] GLUCOSE,BLOOD- poct (STL) 144 mg/dL H -Aug 16, 2024 04:19 PM [facility] GLUCOSE,BLOOD-poct (STL) Specimen Type: BLOOD Comment: Test Performed by: [id number] Meter #: [id number] Ordering Provider: SILVIA REDDY Report Released Date/Time: Aug 16, 2024 04:45 PM Reporting Lab: [facility] [address] Performing Lab: [facility] [address] GLUCOSE,BLOOD- poct (STL) 138 mg/dL H 72-Aug 16, 2024 11:52 AM [facility] GLUCOSE,BLOOD-poct (STL) Specimen Type: BLOOD Comment: Test Performed by: [id number] Meter #: [id number] Ordering Provider: SILVIA REDDY Report Released Date/Time: Aug 16, 2024 12:04 PM Reporting Lab: [facility] [address] Performing Lab: [facility] [address] GLUCOSE,BLOOD- poct (STL) 135 mg/dL H 72-99 Aug 16, 2024 05:24 AM [facility] GLUCOSE,BLOOD-poct (STL) Specimen Type: BLOOD Comment: Test Performed by: [id number] Meter #: [id number] Ordering Provider: SILVIA REDDY Report Released Date/Time: Aug 16, 2024 05:38 AM Reporting Lab: [facility] [address] Performing Lab: [facility] [address] GLUCOSE,BLOOD- poct (STL) 151 mg/dL H Aug 15, 2024 07:31 PM [facility] GLUCOSE,BLOOD-poct (STL) Specimen Type: BLOOD Comment: Test Performed by: [id number] Meter #: [id number] Ordering Provider: SILVIA REDDY Report Released Date/Time: Aug 15, 2024 08:07 PM Reporting Lab: [facility] [address] Performing Lab: [facility] [address] GLUCOSE,BLOOD- poct (STL) 173 mg/dL H Aug 15, 2024 04:18 PM [facility] GLUCOSE,BLOOD-poct (STL) Specimen Type: BLOOD Comment: Test Performed by: [id number] Meter #: [id number] Ordering Provider: SILVIA REDDY Report Released Date/Time: Aug 15, 2024 04:59 PM Reporting Lab: [facility] [address] Performing Lab: [facility] [address] GLUCOSE,BLOOD- poct (STL) 136 mg/dL H Aug 15, 2024 04:16 PM [facility] GLUCOSE,BLOOD-poct (STL) Specimen Type: BLOOD Comment: Test Performed by: [id number] Meter #: [id number] Ordering Provider: SILVIA REDDY Report Released Date/Time: Aug 15, 2024 04:59 PM Reporting Lab: [facility] [place] [address] Performing Lab: [facility] [address] GLUCOSE,BLOOD- poct (STL) 194 mg/dL H 72-Aug 15, 2024 11:39 AM [facility] GLUCOSE,BLOOD-poct (STL) Specimen Type: BLOOD Comment: Test Performed by: [id number] Meter #: [id number] Ordering Provider: SILVIA REDDY Report Released Date/Time: Aug 15, 2024 12:00 PM Reporting Lab: [facility] [place] [address] Performing Lab: [facility] [place] [address] GLUCOSE,BLOOD- poct (STL) 127 mg/dL H -Aug 15, 2024 05:07 AM [facility] GLUCOSE,BLOOD-poct (STL) Specimen Type: BLOOD Comment: Test Performed by: [id number] Meter #: [id number] Ordering Provider: SILVIA REDDY Report Released Date/Time: Aug 15, 2024 06:14 AM Reporting Lab: [facility] [place] [address] Performing Lab: [facility] [place] [address] GLUCOSE,BLOOD- poct (STL) 151 mg/dL H -Aug 14, 2024 04:22 PM [facility] GLUCOSE,BLOOD-poct (STL) Specimen Type: BLOOD Comment: Test Performed by: [id number] Meter #: [id number] Ordering Provider: SILVIA REDDY Report Released Date/Time: Aug 14, 2024 04:52 PM Reporting Lab: [facility] [address] Performing Lab: [facility] [address] GLUCOSE,BLOOD- poct (STL) 129 mg/dL H 72-99 Aug 14, 2024 11:21 AM [facility] GLUCOSE,BLOOD-poct (STL) Specimen Type: BLOOD Comment: Test Performed by: [id number] Meter #: [id number] Ordering Provider: SILVIA REDDY Report Released Date/Time: Aug 14, 2024 11:37 AM Reporting Lab: [facility] [address] Performing Lab: [facility] [address] GLUCOSE,BLOOD- poct (STL) 135 mg/dL H 72-Aug 14, 2024 06:59 AM [facility] QUANTIFERON-TB,4 TUBE Specimen Type: BLOOD Comment: [...] For additional information, please refer to http://education. MyNewFinancial[employer]visor/faq/QJD590 (This link is being provided for information/ educational purposes only.) Test Performed by [employer], [employer] [facility], [address] [place] [address] Tommie Garcia M.D., Ph.D., Director of Laboratories , [facility] [id number] Ordering Provider: SILVIA REDDY Report Released Date/Time: Aug 11, 2024 03:58 PM Reporting Lab: [facility] [address] [facility] [phone] Performing Lab: [facility] [id number] [place] [id number] .NIL - QUANTIFERON 0.04 [IU]/mL .MITOGEN-NIL 0.39 [IU]/mL .QUANTIFERON INDETERMINATE NEGATIVE .TB1-NIL <0.00 [IU]/mL .TB2-NIL <0.00 [IU]/mL Aug 14, 2024 06:59 AM [facility] B12 Specimen Type: SERUM No comment entered. Ordering Provider: SILVIA REDDY Report Released Date/Time: Aug 11, 2024 03:58 PM Reporting Lab: [facility] [phone] Performing Lab: [facility] [phone] B12 757 pg/mL 213-816 Aug 14, 2024 06:59 AM [facility] FOLATE (STL-MA) Specimen Type: SERUM No comment entered. Ordering Provider: SILVIA REDDY Report Released Date/Time: Aug 11, 2024 03:58 PM Reporting Lab: [facility] [phone] Performing Lab: [facility] [phone] FOLATE (STL-MA) 6.8 ng/mL L 7-20 Aug 14, 2024 06:59 AM [facility] MAGNESIUM Specimen Type: PLASMA Comment: No hemolysis noted. Ordering Provider: SILVIA REDDY Report Released Date/Time: Aug 11, 2024 03:58 PM Reporting Lab: [facility] [phone] Performing Lab: [facility] [phone] MAGNESIUM 1.9 mg/dL 1.6-2.6 Aug 14, 2024 06:59 AM [facility] VITAMIN D, 25-HYDROXY Specimen Type: SERUM No comment entered. Ordering Provider: SILVIA REDDY Report Released Date/Time: Aug 11, 2024 03:58 PM Reporting Lab: [facility] [place] [phone] Performing Lab: [facility] [phone] VITAMIN D, 25-HYDROXY 8.9 ng/mL L 30-96 Aug 14, 2024 06:59 AM [facility] COMPREHENSIVE METABOLIC PANEL Specimen Type: PLASMA Comment: No hemolysis noted. Ordering Provider: SILVIA REDDY Report Released Date/Time: Aug 11, 2024 03:58 PM Reporting Lab: [facility] [address] Performing Lab: [facility] [place] [phone] CREATININE 0.75 mg/dL 0.70-1.30 UREA NITROGEN 13.6 [...] 95.88 >60 Aug 14, 2024 06:59 AM [facility] CBC Specimen Type: BLOOD No comment entered. Ordering Provider: SILVIA REDDY Report Released Date/Time: Aug 11, 2024 03:58 PM Reporting Lab: [facility] [address] Performing Lab: [facility] [address] WBC 4.1 10*3/uL 3.6-11.2 RBC 3.20 10*6/uL [...] Aug 14, 2024 05:08 AM [facility] GLUCOSE,BLOOD-poct (STL) Specimen Type: BLOOD Comment: Test Performed by: [id number] Meter #: [id number] Ordering Provider: SILVIA REDDY Report Released Date/Time: Aug 14, 2024 05:52 AM Reporting Lab: [facility] [address] Performing Lab: [facility] [address] GLUCOSE,BLOOD- poct (STL) 135 mg/dL H 72-99 Aug 13, 2024 04:27 PM [facility] GLUCOSE,BLOOD-poct (STL) Specimen Type: BLOOD Comment: Test Performed by: [id number] Meter #: [id number] Ordering Provider: SILVIA REDDY Report Released Date/Time: Aug 13, 2024 04:41 PM Reporting Lab: [facility] [address] Performing Lab: [facility] [address] GLUCOSE,BLOOD- poct (STL) 181 mg/dL H -Aug 13, 2024 11:33 AM [facility] GLUCOSE,BLOOD-poct (STL) Specimen Type: BLOOD Comment: Test Performed by: [id number] Meter #: [id number] Ordering Provider: SILVIA REDDY Report Released Date/Time: Aug 13, 2024 03:55 PM Reporting Lab: [facility] [address] Performing Lab: [facility] [place] [address] GLUCOSE,BLOOD- poct (STL) 140 mg/dL H Aug 13, 2024 05:54 AM [facility] GLUCOSE,BLOOD-poct (STL) Specimen Type: BLOOD Comment: Test Performed by: [id number] Meter #: [id number] Ordering Provider: SILVIA REDDY Report Released Date/Time: Aug 13, 2024 06:20 AM Reporting Lab: [facility] [address] Performing Lab: [facility] [address] GLUCOSE,BLOOD- poct (STL) 112 mg/dL H Aug 12, 2024 04:35 PM [facility] GLUCOSE,BLOOD-poct (STL) Specimen Type: BLOOD Comment: Test Performed by: [id number] Meter #: [id number] Ordering Provider: SILVIA REDDY Report Released Date/Time: Aug 12, 2024 04:47 PM Reporting Lab: [facility] [address] Performing Lab: [facility] [address] GLUCOSE,BLOOD- poct (STL) 128 mg/dL H 72-99 Aug 12, 2024 11:26 AM [facility] GLUCOSE,BLOOD-poct (STL) Specimen Type: BLOOD Comment: Test Performed by: [id number] Meter #: [id number] Ordering Provider: SILVIA REDDY Report Released Date/Time: Aug 12, 2024 11:45 AM Reporting Lab: [facility] [address] Performing Lab: [facility] [place] [address] GLUCOSE,BLOOD- poct (STL) 188 mg/dL H -Aug 12, 2024 06:13 AM [facility] GLUCOSE,BLOOD-poct (STL) Specimen Type: BLOOD Comment: Test Performed by: [id number] Meter #: [id number] Ordering Provider: SILVIA REDDY Report Released Date/Time: Aug 12, 2024 06:25 AM Reporting Lab: [facility] [address] Performing Lab: [facility] [address] GLUCOSE,BLOOD- poct (STL) 116 mg/dL H 72-99 Aug 11, 2024 04:10 PM [facility] GLUCOSE,BLOOD-poct (STL) Specimen Type: BLOOD Comment: Test Performed by: [id number] Meter #: [id number] Ordering Provider: SILVIA REDDY Report Released Date/Time: Aug 11, 2024 04:27 PM Reporting Lab: [facility] [place] [address] Performing Lab: [facility] [address] GLUCOSE,BLOOD- poct (STL) 184 mg/dL H 72-99 Aug 11, 2024 01:44 PM [facility] MRSA SURVL NARES DNA Specimen Type: [...] Aug 11, 2024 02:03 PM Reporting Lab: [address] [address] Performing Lab: [address] [address] MRSA SURVL NARES DNA Negative Negative Jul 20, 2024 11:18 AM [facility] APTT Specimen Type: PLASMA No comment entered. Ordering Provider: MANUEL BAIRD Report Released Date/Time: Jul 19, 2024 04:00 PM Reporting Lab: [address] [address] Performing Lab: [address] [address] APTT 32.1 s 26.7-39.9 Jul 20, 2024 11:18 AM [facility] PT/INR NEW (L-AZ) Specimen Type: PLASMA No comment entered. Ordering Provider: MANUEL BAIRD Report Released Date/Time: Jul 19, 2024 04:00 PM Reporting Lab: [address] [address] Performing Lab: [address] [address] PROTIME 14.4 s H 9.4-12.5 INR VALUE 1.3 {INR} Jul 20, 2024 11:18 AM [facility] CBC Specimen Type: BLOOD No comment entered. Ordering Provider: MANUEL BAIRD Report Released Date/Time: Jul 19, 2024 04:00 PM Reporting Lab: [facility] [address] [facility] [address] Performing Lab: [facility] [address] [facility] [address] WBC 4.7 10*3/uL 3.6-11.2 RBC 4.86 10*6/uL [...] PM 98.1 75 101/61 18 95 0 [facility] N Aug 16, 2024 09:51 AM 97.7 80 136/85 18 94 [facility] Aug 16, 2024 05:35 AM 97.1 86 96/60 18 92 0 [facility] [...]
--- OUTSIDE RECORDS SUMMARY | 2024-11-17 04:13 | XMS_ITS ---
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 Date/Time Encounter Type Encounter Description Reason Pro vider Source Aug 16, 2024 03:04 PM Inpatient Visit DAILY HOSPITALIZATION DATA [place] [place] Encounter Template Text not used by [place] Plan of Treatment: Future Appointments (+ 6 [...] 24, 2024 10:00 AM AMBULATORY - MEDICINE [facility] Aug 24, 2024 10:30 AM AMBULATORY - MEDICINE [facility] Aug 30, 2024 09:30 AM AMBULATORY MEDICINE [facility] Aug 31, 2024 01:00 PM AMBULATORY - SUR[facility]ERY [facility] Sep 21, 2024 01:30 PM AMBULATORY - MEDICINE [facility] Sep 22, 2024 11:00 AM AMBULATORY - MEDICINE [facility] Sep 29, 2024 12:30 PM AMBULATORY - MEDICINE [facility] Oct 02, 2024 09:30 AM AMBULATORY - MEDICINE [facility] Nov 20, 2024 10:30 AM AMBULATORY - SUR[facility]ERY [facility] Nov 21, 2024 10:00 AM AMBULATORY - NONE [facility] Dec 11, 2024 10:30 AM AMBULATORY - MEDICINE [facility] Active, Pending, and Scheduled [...] - Chemistry Order CBC BLOOD STAT SP [facility] Aug 02, 2024 12:00 AM Laboratory - Chemistry Order COMPREHENSIVE METABOLIC PANEL GREEN LI/HEP BLD/PLAS PLASMA SP [facility] Aug 17, 2024 03:47 PM Consult Order CRITICAL [facility]ESS [facility] Cons Bedside [facility] Lab Results: +/- 30 [...] Comment Aug 23, 2024 08:21 AM [facility] MAGNESIUM Specimen Type: PLASMA No comment entered. Ordering Provider: SILVIA REDDY Report Released Date/Time: Aug 22, 2024 11:26 AM Reporting Lab: [facility] [address] Performing Lab: [facility] [address] MAGNESIUM 1.8 mg/dL 1.6-2.6 Aug 23, 2024 08:21 AM [facility] CBC Specimen Type: BLOOD No comment entered. Ordering Provider: SILVIA REDDY Report Released Date/Time: Aug 22, 2024 11:19 AM Reporting Lab: [facility] [address] Performing Lab: [facility] [address] WBC 4.0 10*3/uL 3.6-11.2 RBC 3.65 10*6/uL [...] 0.00-0.20 Aug 23, 2024 05:12 AM [facility] GLUCOSE,BLOOD-poct (STL) Specimen Type: BLOOD Comment: Test Performed by: [id number] Meter #: [id number] Ordering Provider: SILVIA REDDY Report Released Date/Time: Aug 23, 2024 05:23 AM Reporting Lab: [facility] [address] Performing Lab: [facility] [address] [facility] [address] GLUCOSE,BLOOD- poct (STL) 99 mg/dL 72-99 Aug 23, 2024 02:45 AM [facility] OCCULT BLOOD FIT X1 SCREEN Specimen Type: FECES No comment entered. Ordering Provider: SILVIA REDDY Report Released Date/Time: Aug 22, 2024 11:23 AM Reporting Lab: [address] [address] Performing Lab: [address] [address] OCCULT BLOOD (FIT) #1 OF 1 Negative Negative Aug 22, 2024 07:30 PM [facility] OCCULT BLOOD FIT X1 SCREEN Specimen Type: FECES No comment entered. Ordering Provider: SILVIA REDDY Report Released Date/Time: Aug 22, 2024 11:23 AM Reporting Lab: [address] [address] Performing Lab: [address] [address] OCCULT BLOOD (FIT) #1 OF 1 Negative Negative Aug 22, 2024 06:15 PM [facility] OCCULT BLOOD FIT X1 SCREEN Specimen Type: FECES No comment entered. Ordering Provider: SILVIA REDDY Report Released Date/Time: Aug 22, 2024 11:23 AM Reporting Lab: [address] [address] Performing Lab: [facility] [address] [facility] [address] OCCULT BLOOD (FIT) #1 OF 1 Negative Negative Aug 22, 2024 04:24 PM [facility] GLUCOSE,BLOOD-poct (STL) Specimen Type: BLOOD Comment: Test Performed by: [id number] Meter #: [id number] Ordering Provider: SILVIA REDDY Report Released Date/Time: Aug 22, 2024 04:36 PM Reporting Lab: [facility] [address] Performing Lab: [facility] [address] [facility] [address] GLUCOSE,BLOOD- poct (STL) 176 mg/dL H -Aug 22, 2024 04:23 PM [facility] GLUCOSE,BLOOD-poct (STL) Specimen Type: BLOOD Comment: Test Performed by: [id number] Meter #: [id number] Ordering Provider: SILVIA REDDY Report Released Date/Time: Aug 22, 2024 04:36 PM Reporting Lab: [facility] [address] Performing Lab: [facility] [address] GLUCOSE,BLOOD- poct (STL) 221 mg/dL H 72-Aug 22, 2024 11:15 AM [facility] GLUCOSE,BLOOD-poct (STL) Specimen Type: BLOOD Comment: Test Performed by: [id number] Meter #: [id number] Ordering Provider: SILVIA REDDY Report Released Date/Time: Aug 22, 2024 11:27 AM Reporting Lab: [facility] [address] Performing Lab: [facility] [address] GLUCOSE,BLOOD- poct (STL) 140 mg/dL H 72-Aug 22, 2024 08:03 AM [facility] FERRITIN Specimen Type: SERUM No comment entered. Ordering Provider: JUDIT PERKINS Report Released Date/Time: Aug 18, 2024 11:01 AM Reporting Lab: [facility] [address] [facility] [address] Performing Lab: [facility] [address] [facility] [address] FERRITIN 79.50 ng/mL 22-275 Aug 22, 2024 08:03 AM [facility] IRON/TIBC PROFILE Specimen Type: SERUM No comment entered. Ordering Provider: JUDIT PERKINS Report Released Date/Time: Aug 18, 2024 11:01 AM Reporting Lab: [address] [address] Performing Lab: [address] [address] TIBC 283 ug/dL 250-450 TRANSFERRIN 226 mg/dL 163-344 IRON SATURATION 7 L 20-50 IRON 19 ug/dL L 65-175 Aug 22, 2024 08:03 AM [facility] B12 Specimen Type: SERUM No comment entered. Ordering Provider: JUDIT PERKINS Report Released Date/Time: Aug 18, 2024 11:01 AM Reporting Lab: [facility] [address] Performing Lab: [facility] [address] [facility] [address] B12 631 pg/mL 213-816 Aug 22, 2024 08:03 AM [facility] COMPREHENSIVE METABOLIC PANEL Specimen Type: PLASMA Comment: No hemolysis noted. Ordering Provider: SILVIA REDDY Report Released Date/Time: Aug 17, 2024 01:18 PM Reporting Lab: [facility] [address] [facility] [address] Performing Lab: [address] [address] CREATININE 0.80 mg/dL 0.7-1.3 UREA NITROGEN 9.7 [...] 94.0 >60 Aug 22, 2024 08:03 AM [facility] CBC Specimen Type: BLOOD No comment entered. Ordering Provider: SILVIA REDDY Report Released Date/Time: Aug 17, 2024 01:18 PM Reporting Lab: [facility] [address] Performing Lab: [facility] [address] WBC 3.5 10*3/uL L 3.6-11.2 RBC 3.23 [...] 0 Aug 22, 2024 05:03 AM [facility] GLUCOSE,BLOOD-poct (STL) Specimen Type: BLOOD Comment: Test Performed by: [id number] Meter #: [id number] Ordering Provider: SILVIA REDDY Report Released Date/Time: Aug 22, 2024 06:17 AM Reporting Lab: [facility] [address] [facility] [address] Performing Lab: [facility] [address] [facility] [address] GLUCOSE,BLOOD- poct (STL) 170 mg/dL H 72-Aug 21, 2024 04:32 PM [facility] GLUCOSE,BLOOD-poct (STL) Specimen Type: BLOOD Comment: Test Performed by: [id number] Meter #: [id number] Ordering Provider: SILVIA REDDY Report Released Date/Time: Aug 21, 2024 04:49 PM Reporting Lab: [facility] [address] Performing Lab: [facility] [address] [facility] [address] GLUCOSE,BLOOD- poct (STL) 169 mg/dL H -99 Aug 21, 2024 11:53 AM [facility] GLUCOSE,BLOOD-poct (STL) Specimen Type: BLOOD Comment: Test Performed by: [id number] Meter #: [id number] Ordering Provider: SILVIA REDDY Report Released Date/Time: Aug 21, 2024 12:11 PM Reporting Lab: [facility] [address] [facility] [address] Performing Lab: [facility] [address] GLUCOSE,BLOOD- poct (STL) 149 mg/dL H 72-99 Aug 21, 2024 05:10 AM [facility] GLUCOSE,BLOOD-poct (STL) Specimen Type: BLOOD Comment: Test Performed by: [id number] Meter #: [id number] Ordering Provider: SILVIA REDDY Report Released Date/Time: Aug 21, 2024 05:27 AM Reporting Lab: [facility] [place] [address] Performing Lab: [facility] [address] [place] [id number] GLUCOSE,BLOOD- poct (STL) 118 mg/dL H 72-99 Aug 20, 2024 04:38 PM [facility] GLUCOSE,BLOOD-poct (STL) Specimen Type: BLOOD Comment: Test Performed by: [id number] Meter #: [id number] Ordering Provider: SILVIA REDDY Report Released Date/Time: Aug 21, 2024 01:55 AM Reporting Lab: [facility] [address] [place] [address] Performing Lab: [facility] [address] [place] [address] GLUCOSE,BLOOD- poct (STL) 169 mg/dL H 72-Aug 20, 2024 04:36 PM [facility] GLUCOSE,BLOOD-poct (STL) Specimen Type: BLOOD Comment: Test Performed by: [id number] Meter #: [id number] Ordering Provider: SILVIA REDDY Report Released Date/Time: Aug 21, 2024 01:55 AM Reporting Lab: [facility] [place] [address] Performing Lab: [facility] [place] [address] GLUCOSE,BLOOD- poct (STL) 395 mg/dL H 72-99 Aug 20, 2024 11:45 AM [facility] GLUCOSE,BLOOD-poct (STL) Specimen Type: BLOOD Comment: Test Performed by: [id number] Meter #: [id number] Ordering Provider: SILVIA REDDY Report Released Date/Time: Aug 20, 2024 11:56 AM Reporting Lab: [facility] [address] Performing Lab: [facility] [address] [facility] [address] GLUCOSE,BLOOD- poct (STL) 169 mg/dL H 72-Aug 20, 2024 05:06 AM [facility] GLUCOSE,BLOOD-poct (STL) Specimen Type: BLOOD Comment: Test Performed by: [id number] Meter #: [id number] Ordering Provider: SILVIA REDDY Report Released Date/Time: Aug 20, 2024 06:05 AM Reporting Lab: [facility] [facility] [address] Performing Lab: [facility] [address] [facility] [address] GLUCOSE,BLOOD- poct (STL) 115 mg/dL H 72-Aug 19, 2024 04:23 PM [facility] GLUCOSE,BLOOD-poct (STL) Specimen Type: BLOOD Comment: Test Performed by: [id number] Meter #: [id number] Ordering Provider: SILVIA REDDY Report Released Date/Time: Aug 19, 2024 05:54 PM Reporting Lab: [facility] [facility] [address] Performing Lab: [facility] [facility] [address] GLUCOSE,BLOOD- poct (STL) 137 mg/dL H 72-99 Aug 19, 2024 11:28 AM [facility] GLUCOSE,BLOOD-poct (STL) Specimen Type: BLOOD Comment: Test Performed by: [id number] Meter #: [id number] Ordering Provider: SILVIA REDDY Report Released Date/Time: Aug 19, 2024 11:51 AM Reporting Lab: [facility] [facility] [address] Performing Lab: [facility] [facility] [address] GLUCOSE,BLOOD- poct (STL) 190 mg/dL H 72-99 Aug 19, 2024 05:21 AM [facility] GLUCOSE,BLOOD-poct (STL) Specimen Type: BLOOD Comment: Test Performed by: [id number] Meter #: [id number] Ordering Provider: SILVIA REDDY Report Released Date/Time: Aug 19, 2024 05:56 AM Reporting Lab: [facility] [facility] [address] Performing Lab: [facility] [facility] [address] GLUCOSE,BLOOD- poct (STL) 130 mg/dL H Aug 18, 2024 04:49 PM [facility] GLUCOSE,BLOOD-poct (STL) Specimen Type: BLOOD Comment: Test Performed by: [id number] Meter #: [id number] Ordering Provider: SILVIA REDDY Report Released Date/Time: Aug 18, 2024 05:01 PM Reporting Lab: [facility] [address] Performing Lab: [facility] [facility] [address] GLUCOSE,BLOOD- poct (STL) 129 mg/dL H Aug 18, 2024 11:23 AM [facility] GLUCOSE,BLOOD-poct (STL) Specimen Type: BLOOD Comment: Test Performed by: [id number] Meter #: [id number] Ordering Provider: SILVIA REDDY Report Released Date/Time: Aug 18, 2024 11:41 AM Reporting Lab: [facility] [facility] [address] Performing Lab: [facility] [facility] [address] GLUCOSE,BLOOD- poct (STL) 180 mg/dL H Aug 18, 2024 05:08 AM [facility] GLUCOSE,BLOOD-poct (STL) Specimen Type: BLOOD Comment: Test Performed by: [id number] Meter #: [id number] Ordering Provider: SILVIA REDDY Report Released Date/Time: Aug 18, 2024 05:31 AM Reporting Lab: [facility] [place] [address] Performing Lab: [facility] [facility] [address] GLUCOSE,BLOOD- poct (STL) 127 mg/dL H -Aug 17, 2024 07:32 PM [facility] GLUCOSE,BLOOD-poct (STL) Specimen Type: BLOOD Comment: Test Performed by: [id number] Meter #: [id number] Ordering Provider: SILVIA REDDY Report Released Date/Time: Aug 17, 2024 07:59 PM Reporting Lab: [facility] [place] [address] Performing Lab: [facility] [place] [address] GLUCOSE,BLOOD- poct (STL) 154 mg/dL H -Aug 17, 2024 04:24 PM [facility] GLUCOSE,BLOOD-poct (STL) Specimen Type: BLOOD Comment: Test Performed by: [id number] Meter #: [id number] Ordering Provider: SILVIA REDDY Report Released Date/Time: Aug 17, 2024 04:35 PM Reporting Lab: [facility] [place] [address] Performing Lab: [facility] [place] [address] GLUCOSE,BLOOD- poct (STL) 178 mg/dL H -Aug 17, 2024 05:09 AM [facility] GLUCOSE,BLOOD-poct (STL) Specimen Type: BLOOD Comment: Test Performed by: [id number] Meter #: [id number] Ordering Provider: SILVIA REDDY Report Released Date/Time: Aug 17, 2024 05:54 AM Reporting Lab: [facility] [address] Performing Lab: [facility] [facility] [address] GLUCOSE,BLOOD- poct (STL) 124 mg/dL H 72-Aug 16, 2024 07:40 PM [facility] GLUCOSE,BLOOD-poct (STL) Specimen Type: BLOOD Comment: Test Performed by: [id number] Meter #: [id number] Ordering Provider: SILVIA REDDY Report Released Date/Time: Aug 16, 2024 08:28 PM Reporting Lab: [facility] [facility] [address] Performing Lab: [facility] [address] GLUCOSE,BLOOD- poct (STL) 144 mg/dL H -Aug 16, 2024 04:19 PM [facility] GLUCOSE,BLOOD-poct (STL) Specimen Type: BLOOD Comment: Test Performed by: [id number] Meter #: [id number] Ordering Provider: SILVIA REDDY Report Released Date/Time: Aug 16, 2024 04:45 PM Reporting Lab: [facility] [address] Performing Lab: [facility] [address] GLUCOSE,BLOOD- poct (STL) 138 mg/dL H 72-Aug 16, 2024 11:52 AM [facility] GLUCOSE,BLOOD-poct (STL) Specimen Type: BLOOD Comment: Test Performed by: [id number] Meter #: [id number] Ordering Provider: SILVIA REDDY Report Released Date/Time: Aug 16, 2024 12:04 PM Reporting Lab: [facility] [address] Performing Lab: [facility] [address] GLUCOSE,BLOOD- poct (STL) 135 mg/dL H 72-99 Aug 16, 2024 05:24 AM [facility] GLUCOSE,BLOOD-poct (STL) Specimen Type: BLOOD Comment: Test Performed by: [id number] Meter #: [id number] Ordering Provider: SILVIA REDDY Report Released Date/Time: Aug 16, 2024 05:38 AM Reporting Lab: [facility] [address] Performing Lab: [facility] [address] GLUCOSE,BLOOD- poct (STL) 151 mg/dL H Aug 15, 2024 07:31 PM [facility] GLUCOSE,BLOOD-poct (STL) Specimen Type: BLOOD Comment: Test Performed by: [id number] Meter #: [id number] Ordering Provider: SILVIA REDDY Report Released Date/Time: Aug 15, 2024 08:07 PM Reporting Lab: [facility] [address] Performing Lab: [facility] [address] GLUCOSE,BLOOD- poct (STL) 173 mg/dL H Aug 15, 2024 04:18 PM [facility] GLUCOSE,BLOOD-poct (STL) Specimen Type: BLOOD Comment: Test Performed by: [id number] Meter #: [id number] Ordering Provider: SILVIA REDDY Report Released Date/Time: Aug 15, 2024 04:59 PM Reporting Lab: [facility] [address] Performing Lab: [facility] [address] GLUCOSE,BLOOD- poct (STL) 136 mg/dL H Aug 15, 2024 04:16 PM [facility] GLUCOSE,BLOOD-poct (STL) Specimen Type: BLOOD Comment: Test Performed by: [id number] Meter #: [id number] Ordering Provider: SILVIA REDDY Report Released Date/Time: Aug 15, 2024 04:59 PM Reporting Lab: [facility] [place] [address] Performing Lab: [facility] [address] GLUCOSE,BLOOD- poct (STL) 194 mg/dL H 72-Aug 15, 2024 11:39 AM [facility] GLUCOSE,BLOOD-poct (STL) Specimen Type: BLOOD Comment: Test Performed by: [id number] Meter #: [id number] Ordering Provider: SILVIA REDDY Report Released Date/Time: Aug 15, 2024 12:00 PM Reporting Lab: [facility] [place] [address] Performing Lab: [facility] [place] [address] GLUCOSE,BLOOD- poct (STL) 127 mg/dL H -Aug 15, 2024 05:07 AM [facility] GLUCOSE,BLOOD-poct (STL) Specimen Type: BLOOD Comment: Test Performed by: [id number] Meter #: [id number] Ordering Provider: SILVIA REDDY Report Released Date/Time: Aug 15, 2024 06:14 AM Reporting Lab: [facility] [place] [address] Performing Lab: [facility] [place] [address] GLUCOSE,BLOOD- poct (STL) 151 mg/dL H -Aug 14, 2024 04:22 PM [facility] GLUCOSE,BLOOD-poct (STL) Specimen Type: BLOOD Comment: Test Performed by: [id number] Meter #: [id number] Ordering Provider: SILVIA REDDY Report Released Date/Time: Aug 14, 2024 04:52 PM Reporting Lab: [facility] [address] Performing Lab: [facility] [address] GLUCOSE,BLOOD- poct (STL) 129 mg/dL H 72-99 Aug 14, 2024 11:21 AM [facility] GLUCOSE,BLOOD-poct (STL) Specimen Type: BLOOD Comment: Test Performed by: [id number] Meter #: [id number] Ordering Provider: SILVIA REDDY Report Released Date/Time: Aug 14, 2024 11:37 AM Reporting Lab: [facility] [address] Performing Lab: [facility] [address] GLUCOSE,BLOOD- poct (STL) 135 mg/dL H 72-Aug 14, 2024 06:59 AM [facility] QUANTIFERON-TB,4 TUBE Specimen Type: BLOOD Comment: [...] For additional information, please refer to http://education. Backblaze/faq/ZNY583 (This link is being provided for information/ educational purposes only.) Test Performed by [employer], [facility], [address] [place] [address] Tommie Garcia M.D., Ph.D., Director of Laboratories , [facility] [id number] Ordering Provider: SILVIA REDDY Report Released Date/Time: Aug 11, 2024 03:58 PM Reporting Lab: [facility] [address] [facility] [address] Performing Lab: [facility] [id number] [place] [address] .NIL - QUANTIFERON 0.04 [IU]/mL .MITOGEN-NIL 0.39 [IU]/mL .QUANTIFERON INDETERMINATE NEGATIVE .TB1-NIL <0.00 [IU]/mL .TB2-NIL <0.00 [IU]/mL Aug 14, 2024 06:59 AM [facility] B12 Specimen Type: SERUM No comment entered. Ordering Provider: SILVIA REDDY Report Released Date/Time: Aug 11, 2024 03:58 PM Reporting Lab: [facility] [address] Performing Lab: [facility] [address] B12 757 pg/mL 213-816 Aug 14, 2024 06:59 AM [facility] FOLATE (STL-MA) Specimen Type: SERUM No comment entered. Ordering Provider: SILVIA REDDY Report Released Date/Time: Aug 11, 2024 03:58 PM Reporting Lab: [facility] [address] Performing Lab: [facility] [address] FOLATE (STL-MA) 6.8 ng/mL L 7-20 Aug 14, 2024 06:59 AM [facility] MAGNESIUM Specimen Type: PLASMA Comment: No hemolysis noted. Ordering Provider: SILVIA REDDY Report Released Date/Time: Aug 11, 2024 03:58 PM Reporting Lab: [facility] [phone] Performing Lab: [facility] [address] MAGNESIUM 1.9 mg/dL 1.6-2.6 Aug 14, 2024 06:59 AM [facility] VITAMIN D, 25-HYDROXY Specimen Type: SERUM No comment entered. Ordering Provider: SILVIA REDDY Report Released Date/Time: Aug 11, 2024 03:58 PM Reporting Lab: [facility] [place] [phone] Performing Lab: [facility] [address] VITAMIN D, 25-HYDROXY 8.9 ng/mL L 30-96 Aug 14, 2024 06:59 AM [facility] COMPREHENSIVE METABOLIC PANEL Specimen Type: PLASMA Comment: No hemolysis noted. Ordering Provider: SILVIA REDDY Report Released Date/Time: Aug 11, 2024 03:58 PM Reporting Lab: [facility] [phone] Performing Lab: [facility] [place] [phone] CREATININE 0.75 mg/dL 0.70-1.30 UREA NITROGEN 13.6 [...] >60 Aug 14, 2024 06:59 AM [facility] CBC Specimen Type: BLOOD No comment entered. Ordering Provider: SILVIA REDDY Report Released Date/Time: Aug 11, 2024 03:58 PM Reporting Lab: [facility] [phone] Performing Lab: [facility] [address] WBC 4.1 10*3/uL 3.6-11.2 RBC 3.20 10*6/uL [...] 0.00-0.20 Aug 14, 2024 05:08 AM [facility] GLUCOSE,BLOOD-poct (STL) Specimen Type: BLOOD Comment: Test Performed by: [id number] Meter #: [id number] Ordering Provider: SILVIA REDDY Report Released Date/Time: Aug 14, 2024 05:52 AM Reporting Lab: [facility] [address] Performing Lab: [facility] [phone] GLUCOSE,BLOOD- poct (STL) 135 mg/dL H 72-99 Aug 13, 2024 04:27 PM [facility] GLUCOSE,BLOOD-poct (STL) Specimen Type: BLOOD Comment: Test Performed by: [id number] Meter #: [id number] Ordering Provider: SILVIA REDDY Report Released Date/Time: Aug 13, 2024 04:41 PM Reporting Lab: [facility] [phone] Performing Lab: [facility] [address] GLUCOSE,BLOOD- poct (STL) 181 mg/dL H -Aug 13, 2024 11:33 AM [facility] GLUCOSE,BLOOD-poct (STL) Specimen Type: BLOOD Comment: Test Performed by: [id number] Meter #: [id number] Ordering Provider: SILVIA REDDY Report Released Date/Time: Aug 13, 2024 03:55 PM Reporting Lab: [facility] [phone] Performing Lab: [facility] [place] [address] GLUCOSE,BLOOD- poct (STL) 140 mg/dL H Aug 13, 2024 05:54 AM [facility] GLUCOSE,BLOOD-poct (STL) Specimen Type: BLOOD Comment: Test Performed by: [id number] Meter #: [id number] Ordering Provider: SILVIA REDDY Report Released Date/Time: Aug 13, 2024 06:20 AM Reporting Lab: [facility] [address] Performing Lab: [facility] [facility] [address] GLUCOSE,BLOOD- poct (STL) 112 mg/dL H Aug 12, 2024 04:35 PM [facility] GLUCOSE,BLOOD-poct (STL) Specimen Type: BLOOD Comment: Test Performed by: [id number] Meter #: [id number] Ordering Provider: SILVIA REDDY Report Released Date/Time: Aug 12, 2024 04:47 PM Reporting Lab: [facility] [address] Performing Lab: [facility] [facility] [address] GLUCOSE,BLOOD- poct (STL) 128 mg/dL H 72-99 Aug 12, 2024 11:26 AM [facility] GLUCOSE,BLOOD-poct (STL) Specimen Type: BLOOD Comment: Test Performed by: [id number] Meter #: [id number] Ordering Provider: SILVIA REDDY Report Released Date/Time: Aug 12, 2024 11:45 AM Reporting Lab: [facility] [facility] [address] Performing Lab: [facility] [place] [address] GLUCOSE,BLOOD- poct (STL) 188 mg/dL H -Aug 12, 2024 06:13 AM [facility] GLUCOSE,BLOOD-poct (STL) Specimen Type: BLOOD Comment: Test Performed by: [id number] Meter #: [id number] Ordering Provider: SILVIA REDDY Report Released Date/Time: Aug 12, 2024 06:25 AM Reporting Lab: [facility] [facility] [address] Performing Lab: [facility] [facility] [address] GLUCOSE,BLOOD- poct (STL) 116 mg/dL H 72-99 Aug 11, 2024 04:10 PM [facility] GLUCOSE,BLOOD-poct (STL) Specimen Type: BLOOD Comment: Test Performed by: [id number] Meter #: [id number] Ordering Provider: SILVIA REDDY Report Released Date/Time: Aug 11, 2024 04:27 PM Reporting Lab: [facility] [place] [address] Performing Lab: [facility] [address] GLUCOSE,BLOOD- poct (STL) 184 mg/dL H 72-99 Aug 11, 2024 01:44 PM [facility] MRSA SURVL NARES DNA Specimen Type: [...] 11, 2024 02:03 PM Reporting Lab: [address] [address] Performing Lab: [address] [address] MRSA SURVL NARES DNA Negative Negative Jul 20, 2024 11:18 AM [facility] APTT Specimen Type: PLASMA No comment entered. Ordering Provider: MANUEL BAIRD Report Released Date/Time: Jul 19, 2024 04:00 PM Reporting Lab: [address] [address] Performing Lab: [address] [address] APTT 32.1 s 26.7-39.9 Jul 20, 2024 11:18 AM [facility] PT/INR NEW ([place]) Specimen Type: PLASMA No comment entered. Ordering Provider: MANUEL BAIRD Report Released Date/Time: Jul 19, 2024 04:00 PM Reporting Lab: [address] [address] Performing Lab: [address] [address] PROTIME 14.4 s H 9.4-12.5 INR VALUE 1.3 {INR} Jul 20, 2024 11:18 AM [facility] CBC Specimen Type: BLOOD No comment entered. Ordering Provider: MANUEL BAIRD Report Released Date/Time: Jul 19, 2024 04:00 PM Reporting Lab: [facility] [address] [facility] [address] Performing Lab: [facility] [address] [facility] [address] WBC 4.7 10*3/uL 3.6-11.2 RBC 4.86 10*6/uL [...] PM 98.1 75 101/61 18 95 0 [facility] N Aug 16, 2024 09:51 AM 97.7 80 136/85 18 94 [facility] Aug 16, 2024 05:35 AM 97.1 86 96/60 18 92 0 [facility] Advance Directives: All [...] this document. The data comes from all [place] facilities. Date Advance Directives Provider Source Jan 19, 2017 ADVANCE DIRECTIVE DISCUSSION ERICK BARDALES [facility]
--- OUTSIDE RECORDS SUMMARY | 2024-11-17 04:13 | XMS_ITS ---
PR DAILY HOSPITALIZATION DATA [facility] Encounter Summary Created on: November 16, 2024 CHET WALKER : 1950 Sex: Male Author Name [facility] Organization [facility] [place] Address [address] [place] [address] Care Team Providers Care Assistant Manager Bilingual Name Role Phone MANUEL BAIRD Primary Care [...] PART A Apr 08, 2017 PART A [id number] [phone] ASHLEY WALKER PATIENT Selected Encounter This section includes the information on record at [place] for the Encounter. Date/Time Encounter Type Encounter Description Reason Pro vider Source Aug 16, 2024 12:09 AM Inpatient Visit DAILY HOSPITALIZATION DATA [facility] [...] 01:00 PM AMBULATORY - SURGERY [facility] Sep 21, 2024 01:30 PM AMBULATORY - MEDICINE [facility] Sep 22, 2024 11:00 AM AMBULATORY - MEDICINE [facility] Sep 29, 2024 12:30 PM AMBULATORY - MEDICINE [facility] Oct 02, 2024 09:30 AM AMBULATORY - MEDICINE [facility] Nov 20, 2024 10:30 AM AMBULATORY - SURGERY [facility] Nov 21, 2024 10:00 AM AMBULATORY - NONE [facility] Dec 11, 2024 10:30 AM AMBULATORY - [...] Aug 17, 2024 03:47 PM Consult Order [facility] Cons Bedside [facility] [...] 22, 2024 11:26 AM Reporting Lab: [facility] [address] Performing Lab: [facility] [address] MAGNESIUM 1.8 mg/dL 1.6-2.6 Aug 23, 2024 08:21 AM [facility] CBC Specimen Type: BLOOD No comment entered. Ordering Provider: SILVIA REDDY Report Released Date/Time: Aug 22, 2024 11:19 AM Reporting Lab: [facility] [address] Performing Lab: [facility] [address] WBC 4.0 10*3/uL 3.6-11.2 RBC 3.65 10*6/uL [...] Specimen Type: BLOOD Comment: Test Performed by: [id number] Meter #: [id number] Ordering Provider: SILVIA REDDY Report Released Date/Time: Aug 23, 2024 05:23 AM Reporting Lab: [facility] [address] Performing Lab: [facility] [address] GLUCOSE,BLOOD- poct (STL) 99 mg/dL 72-99 Aug 23, 2024 02:45 AM [facility] OCCULT BLOOD FIT X1 SCREEN Specimen Type: FECES No comment entered. Ordering Provider: SILVIA REDDY Report Released Date/Time: Aug 22, 2024 11:23 AM Reporting Lab: [address] [address] Performing Lab: [address] [address] OCCULT BLOOD (FIT) #1 OF 1 Negative Negative Aug 22, 2024 07:30 PM [facility] OCCULT BLOOD FIT X1 SCREEN Specimen Type: FECES No comment entered. Ordering Provider: SILVIA REDDY Report Released Date/Time: Aug 22, 2024 11:23 AM Reporting Lab: [address] [address] Performing Lab: [address] [address] OCCULT BLOOD (FIT) #1 OF 1 Negative Negative Aug 22, 2024 06:15 PM [facility] OCCULT BLOOD FIT X1 SCREEN Specimen Type: FECES No comment entered. Ordering Provider: SILVIA REDDY Report Released Date/Time: Aug 22, 2024 11:23 AM Reporting Lab: [address] [address] Performing Lab: [place] [address] [place] [address] OCCULT BLOOD (FIT) #1 OF 1 Negative Negative Aug 22, 2024 04:24 PM [facility] GLUCOSE,BLOOD-poct (STL) Specimen Type: BLOOD Comment: Test Performed by: [id number] Meter #: [id number] Ordering Provider: SILVIA REDDY Report Released Date/Time: Aug 22, 2024 04:36 PM Reporting Lab: [facility] [address] Performing Lab: [facility] [address] GLUCOSE,BLOOD- poct (STL) 176 mg/dL H -Aug 22, 2024 04:23 PM [facility] GLUCOSE,BLOOD-poct (STL) Specimen Type: BLOOD Comment: Test Performed by: [id number] Meter #: [id number] Ordering Provider: SILVIA REDDY Report Released Date/Time: Aug 22, 2024 04:36 PM Reporting Lab: [facility] [address] Performing Lab: [facility]1 [facility] [address] GLUCOSE,BLOOD- poct (STL) 221 mg/dL H 72-Aug 22, 2024 11:15 AM [facility] GLUCOSE,BLOOD-poct (STL) Specimen Type: BLOOD Comment: Test Performed by: [id number] Meter #: [id number] Ordering Provider: SILVIA REDDY Report Released Date/Time: Aug 22, 2024 11:27 AM Reporting Lab: [facility]1 [facility] [address] Performing Lab: [facility]1 [facility] [address] GLUCOSE,BLOOD- poct (STL) 140 mg/dL H 72-Aug 22, 2024 08:[address] [facility] FERRITIN Specimen Type: SERUM No comment entered. Ordering Provider: JUDIT PERKINS Report Released Date/Time: Aug 18, 2024 11:01 AM Reporting Lab: [facility] [address] [facility] [address] Performing Lab: [facility] [address] [place] [address] FERRITIN 79.50 ng/mL 22-275 Aug 22, 2024 08:03 AM [facility] IRON/TIBC PROFILE Specimen Type: SERUM No comment entered. Ordering Provider: JUDIT PERKINS Report Released Date/Time: Aug 18, 2024 11:01 AM Reporting Lab: [address] [address] Performing Lab: [address] [address] TIBC 283 ug/dL 250-450 TRANSFERRIN 226 mg/dL 163-344 IRON SATURATION 7 L 20-50 IRON 19 ug/dL L 65-175 Aug 22, 2024 08:03 AM [facility] B12 Specimen Type: SERUM No comment entered. Ordering Provider: JUDIT PERKINS Report Released Date/Time: Aug 18, 2024 11:01 AM Reporting Lab: [facility] [address] Performing Lab: [facility] [address] B12 631 pg/mL 213-816 Aug 22, 2024 08:03 AM [facility] COMPREHENSIVE METABOLIC PANEL Specimen Type: PLASMA Comment: No hemolysis noted. Ordering Provider: SILVIA REDDY Report Released Date/Time: Aug 17, 2024 01:18 PM Reporting Lab: [facility] [address] [facility] [address] Performing Lab: [address] [address] CREATININE 0.80 mg/dL 0.7-1.3 UREA NITROGEN 9.7 [...] >60 Aug 22, 2024 08:03 AM [facility] CBC Specimen Type: BLOOD No comment entered. Ordering Provider: SILVIA REDDY Report Released Date/Time: Aug 17, 2024 01:18 PM Reporting Lab: [facility] [address] Performing Lab: [facility]1 [facility] [address] WBC 3.5 10*3/uL L 3.6-11.2 RBC 3.23 [...] Specimen Type: BLOOD Comment: Test Performed by: [id number] Meter #: [id number] Ordering Provider: SILVIA REDDY Report Released Date/Time: Aug 22, 2024 06:17 AM Reporting Lab: [facility] [address] Performing Lab: [facility] [address] GLUCOSE,BLOOD- poct (STL) 170 mg/dL H 72-Aug 21, 2024 04:32 PM [facility] GLUCOSE,BLOOD-poct (STL) Specimen Type: BLOOD Comment: Test Performed by: [id number] Meter #: [id number] Ordering Provider: SILVIA REDDY Report Released Date/Time: Aug 21, 2024 04:49 PM Reporting Lab: [facility] [address] Performing Lab: [facility] [address] GLUCOSE,BLOOD- poct (STL) 169 mg/dL H -Aug 21, 2024 11:53 AM [facility] GLUCOSE,BLOOD-poct (STL) Specimen Type: BLOOD Comment: Test Performed by: [id number] Meter #: [id number] Ordering Provider: SILVIA REDDY Report Released Date/Time: Aug 21, 2024 12:11 PM Reporting Lab: [facility] [address] Performing Lab: [facility] [address] GLUCOSE,BLOOD- poct (STL) 149 mg/dL H 72-Aug 21, 2024 05:10 AM [facility] GLUCOSE,BLOOD-poct (STL) Specimen Type: BLOOD Comment: Test Performed by: [id number] Meter #: [id number] Ordering Provider: SILVIA REDDY Report Released Date/Time: Aug 21, 2024 05:27 AM Reporting Lab: [facility] [address] Performing Lab: [facility]1 [facility] [address] GLUCOSE,BLOOD- poct (STL) 118 mg/dL H 72-Aug 20, 2024 04:38 PM [facility] GLUCOSE,BLOOD-poct (STL) Specimen Type: BLOOD Comment: Test Performed by: [id number] Meter #: [id number] Ordering Provider: SILVIA REDDY Report Released Date/Time: Aug 21, 2024 01:55 AM Reporting Lab: [facility]1 [facility] [address] Performing Lab: [facility] #1 [place] [address] GLUCOSE,BLOOD- poct (STL) 169 mg/dL H -Aug 20, 2024 04:36 PM [facility] GLUCOSE,BLOOD-poct (STL) Specimen Type: BLOOD Comment: Test Performed by: [id number] Meter #: [id number] Ordering Provider: SILVIA REDDY Report Released Date/Time: Aug 21, 2024 01:55 AM Reporting Lab: [facility] [address] Performing Lab: [facility]1 [facility] [address] GLUCOSE,BLOOD- poct (STL) 395 mg/dL H 72-Aug 20, 2024 11:45 AM [facility] GLUCOSE,BLOOD-poct (STL) Specimen Type: BLOOD Comment: Test Performed by: [id number] Meter #: [id number] Ordering Provider: SILVIA REDDY Report Released Date/Time: Aug 20, 2024 11:56 AM Reporting Lab: [facility]1 [place] [address] Performing Lab: [facility]1 [facility] [address] GLUCOSE,BLOOD- poct (STL) 169 mg/dL H -Aug 20, 2024 05:06 AM [facility] GLUCOSE,BLOOD-poct (STL) Specimen Type: BLOOD Comment: Test Performed by: [id number] Meter #: [id number] Ordering Provider: SILVIA REDDY Report Released Date/Time: Aug 20, 2024 06:05 AM Reporting Lab: [facility]1 [facility] [address] Performing Lab: [facility] [address] GLUCOSE,BLOOD- poct (STL) 115 mg/dL H -Aug 19, 2024 04:23 PM [facility] GLUCOSE,BLOOD-poct (STL) Specimen Type: BLOOD Comment: Test Performed by: [id number] Meter #: [id number] Ordering Provider: SILVIA REDDY Report Released Date/Time: Aug 19, 2024 05:54 PM Reporting Lab: [facility]1 [facility] [address] Performing Lab: [facility]1 [facility] [address] GLUCOSE,BLOOD- poct (STL) 137 mg/dL H -Aug 19, 2024 11:28 AM [facility] GLUCOSE,BLOOD-poct (STL) Specimen Type: BLOOD Comment: Test Performed by: [id number] Meter #: [id number] Ordering Provider: SILVIA REDDY Report Released Date/Time: Aug 19, 2024 11:51 AM Reporting Lab: [facility]1 [facility] [address] Performing Lab: [facility]1 [facility] [address] GLUCOSE,BLOOD- poct (STL) 190 mg/dL H Aug 19, 2024 05:21 AM [facility] GLUCOSE,BLOOD-poct (STL) Specimen Type: BLOOD Comment: Test Performed by: [id number] Meter #: [id number] Ordering Provider: SILVAI REDDY Report Released Date/Time: Aug 19, 2024 05:56 AM Reporting Lab: [facility]1 [facility] [address] Performing Lab: [facility]1 [facility] [address] GLUCOSE,BLOOD- poct (STL) 130 mg/dL H Aug 18, 2024 04:49 PM [facility] GLUCOSE,BLOOD-poct (STL) Specimen Type: BLOOD Comment: Test Performed by: [id number] Meter #: [id number] Ordering Provider: SILVIA REDDY Report Released Date/Time: Aug 18, 2024 05:01 PM Reporting Lab: [facility]1 [facility] [address] Performing Lab: [facility]1 [facility] [address] GLUCOSE,BLOOD- poct (STL) 129 mg/dL H Aug 18, 2024 11:23 AM [facility] GLUCOSE,BLOOD-poct (STL) Specimen Type: BLOOD Comment: Test Performed by: [id number] Meter #: [id number] Ordering Provider: SILVIA REDDY Report Released Date/Time: Aug 18, 2024 11:41 AM Reporting Lab: [facility]1 [facility] [address] Performing Lab: [facility]1 [facility] [address] GLUCOSE,BLOOD- poct (STL) 180 mg/dL H Aug 18, 2024 05:08 AM [facility] GLUCOSE,BLOOD-poct (STL) Specimen Type: BLOOD Comment: Test Performed by: [id number] Meter #: [id number] Ordering Provider: SILVIA REDDY Report Released Date/Time: Aug 18, 2024 05:31 AM Reporting Lab: [facility]1 [facility] [address] Performing Lab: [facility] [address] GLUCOSE,BLOOD- poct (STL) 127 mg/dL H -Aug 17, 2024 07:32 PM [facility] GLUCOSE,BLOOD-poct (STL) Specimen Type: BLOOD Comment: Test Performed by: [id number] Meter #: [id number] Ordering Provider: SILVIA REDDY Report Released Date/Time: Aug 17, 2024 07:59 PM Reporting Lab: [facility]1 [facility] [address] Performing Lab: [facility]1 [facility] [address] GLUCOSE,BLOOD- poct (STL) 154 mg/dL H -Aug 17, 2024 04:24 PM [facility] GLUCOSE,BLOOD-poct (STL) Specimen Type: BLOOD Comment: Test Performed by: [id number] Meter #: [id number] Ordering Provider: SILVIA REDDY Report Released Date/Time: Aug 17, 2024 04:35 PM Reporting Lab: [facility]1 [facility] [address] Performing Lab: [facility]1 [facility] [address] GLUCOSE,BLOOD- poct (STL) 178 mg/dL H -Aug 17, 2024 05:09 AM [facility] GLUCOSE,BLOOD-poct (STL) Specimen Type: BLOOD Comment: Test Performed by: [id number] Meter #: [id number] Ordering Provider: SILVIA REDDY Report Released Date/Time: Aug 17, 2024 05:54 AM Reporting Lab: [facility]1 [place] [address] Performing Lab: [facility]1 [facility] [address] GLUCOSE,BLOOD- poct (STL) 124 mg/dL H -Aug 16, 2024 07:40 PM [facility] GLUCOSE,BLOOD-poct (STL) Specimen Type: BLOOD Comment: Test Performed by: [id number] Meter #: [id number] Ordering Provider: SILVIA REDDY Report Released Date/Time: Aug 16, 2024 08:28 PM Reporting Lab: [facility]1 [facility] [address] Performing Lab: [facility] [address] GLUCOSE,BLOOD- poct (STL) 144 mg/dL H Aug 16, 2024 04:19 PM [facility] GLUCOSE,BLOOD-poct (STL) Specimen Type: BLOOD Comment: Test Performed by: [id number] Meter #: [id number] Ordering Provider: SILVIA REDDY Report Released Date/Time: Aug 16, 2024 04:45 PM Reporting Lab: [facility] [address] Performing Lab: [facility] [address] GLUCOSE,BLOOD- poct (STL) 138 mg/dL H Aug 16, 2024 11:52 AM [facility] GLUCOSE,BLOOD-poct (STL) Specimen Type: BLOOD Comment: Test Performed by: [id number] Meter #: [id number] Ordering Provider: SILVIA REDDY Report Released Date/Time: Aug 16, 2024 12:04 PM Reporting Lab: [facility] [address] Performing Lab: [facility]1 [facility] [address] GLUCOSE,BLOOD- poct (STL) 135 mg/dL H Aug 16, 2024 05:24 AM [facility] GLUCOSE,BLOOD-poct (STL) Specimen Type: BLOOD Comment: Test Performed by: [id number] Meter #: [id number] Ordering Provider: SILVIA REDDY Report Released Date/Time: Aug 16, 2024 05:38 AM Reporting Lab: [facility] [address] Performing Lab: [facility] [address] GLUCOSE,BLOOD- poct (STL) 151 mg/dL H Aug 15, 2024 07:31 PM [facility] GLUCOSE,BLOOD-poct (STL) Specimen Type: BLOOD Comment: Test Performed by: [id number] Meter #: [id number] Ordering Provider: SILVIA REDDY Report Released Date/Time: Aug 15, 2024 08:07 PM Reporting Lab: [facility] [address] Performing Lab: [facility] [address] GLUCOSE,BLOOD- poct (STL) 173 mg/dL H Aug 15, 2024 04:18 PM [facility] GLUCOSE,BLOOD-poct (STL) Specimen Type: BLOOD Comment: Test Performed by: [id number] Meter #: [id number] Ordering Provider: SILVIA REDDY Report Released Date/Time: Aug 15, 2024 04:59 PM Reporting Lab: [facility] [address] Performing Lab: [facility] [address] GLUCOSE,BLOOD- poct (STL) 136 mg/dL H Aug 15, 2024 04:16 PM [facility] GLUCOSE,BLOOD-poct (STL) Specimen Type: BLOOD Comment: Test Performed by: [id number] Meter #: [id number] Ordering Provider: SILVIA REDDY Report Released Date/Time: Aug 15, 2024 04:59 PM Reporting Lab: [facility] [address] Performing Lab: [facility] [address] GLUCOSE,BLOOD- poct (STL) 194 mg/dL H -Aug 15, 2024 11:39 AM [facility] GLUCOSE,BLOOD-poct (STL) Specimen Type: BLOOD Comment: Test Performed by: [id number] Meter #: [id number] Ordering Provider: SILVIA REDDY Report Released Date/Time: Aug 15, 2024 12:00 PM Reporting Lab: [facility] [address] Performing Lab: [facility] [address] GLUCOSE,BLOOD- poct (STL) 127 mg/dL H -Aug 15, 2024 05:07 AM [facility] GLUCOSE,BLOOD-poct (STL) Specimen Type: BLOOD Comment: Test Performed by: [id number] Meter #: [id number] Ordering Provider: SILVIA REDDY Report Released Date/Time: Aug 15, 2024 06:14 AM Reporting Lab: [facility] [address] Performing Lab: [facility] [address] GLUCOSE,BLOOD- poct (STL) 151 mg/dL H -Aug 14, 2024 04:22 PM [facility] GLUCOSE,BLOOD-poct (STL) Specimen Type: BLOOD Comment: Test Performed by: [id number] Meter #: [id number] Ordering Provider: SILVIA REDDY Report Released Date/Time: Aug 14, 2024 04:52 PM Reporting Lab: [facility] [place] [address] Performing Lab: [facility] [address] GLUCOSE,BLOOD- poct (STL) 129 mg/dL H 72-99 Aug 14, 2024 11:21 AM [facility] GLUCOSE,BLOOD-poct (STL) Specimen Type: BLOOD Comment: Test Performed by: [id number] Meter #: [id number] Ordering Provider: SILVIA REDDY Report Released Date/Time: Aug 14, 2024 11:37 AM Reporting Lab: [facility] [address] Performing Lab: [facility] [address] GLUCOSE,BLOOD- poct (STL) 135 mg/dL H 72-99 Aug 14, 2024 06:59 AM [facility] [...] For additional information, please refer to http://education. [employer]/faq/WTN962 (This link is being provided for information/ educational purposes only.) Test Performed by [employer] [facility], [address] [place] [address] Tommie Garcia M.D., Ph.D., Director of Laboratories , [facility] [id number] Ordering Provider: SILVIA REDDY Report Released Date/Time: Aug 11, 2024 03:58 PM Reporting Lab: [facility] [address] [facility] [address] Performing Lab: [facility] [id number] [place] [address] .NIL - QUANTIFERON 0.04 [IU]/mL .MITOGEN-NIL 0.39 [IU]/mL .QUANTIFERON INDETERMINATE NEGATIVE .TB1-NIL <0.00 [IU]/mL .TB2-NIL <0.00 [IU]/mL Aug 14, 2024 06:59 AM [facility] B12 Specimen Type: SERUM No comment entered. Ordering Provider: SILVIA REDDY Report Released Date/Time: Aug 11, 2024 03:58 PM Reporting Lab: [facility] [address] [facility] [address] Performing Lab: [facility] [facility] [address] B12 757 pg/mL [phone] Aug 14, 2024 06:59 AM [facility] MAGNESIUM Specimen Type: PLASMA Comment: No hemolysis noted. Ordering Provider: SILVIA REDDY Report Released Date/Time: Aug 11, 2024 03:58 PM Reporting Lab: [facility] [facility] [address] Performing Lab: [facility] [facility] [address] MAGNESIUM 1.9 mg/dL 1.6-2.6 Aug 14, 2024 06:59 AM [facility] FOLATE (STL-MA) Specimen Type: SERUM No comment entered. Ordering Provider: SILVIA REDDY Report Released Date/Time: Aug 11, 2024 03:58 PM Reporting Lab: [facility] [facility] [address] Performing Lab: [facility] [facility] [address] FOLATE (STL-MA) 6.8 ng/mL L 7-20 Aug 14, 2024 06:59 AM [facility] VITAMIN D, 25-HYDROXY Specimen Type: SERUM No comment entered. Ordering Provider: SILVIA REDDY Report Released Date/Time: Aug 11, 2024 03:58 PM Reporting Lab: [facility] [facility] [address] Performing Lab: [facility] [facility] [address] VITAMIN D, 25-HYDROXY 8.9 ng/mL L 30-96 Aug 14, 2024 06:59 AM [facility] COMPREHENSIVE METABOLIC PANEL Specimen Type: PLASMA Comment: No hemolysis noted. Ordering Provider: SILVIA REDDY Report Released Date/Time: Aug 11, 2024 03:58 PM Reporting Lab: [facility] [facility] [address] Performing Lab: [facility] [facility] [address] CREATININE 0.75 mg/dL 0.70-1.30 UREA NITROGEN 13.6 [...] 11, 2024 03:58 PM Reporting Lab: [facility] [facility] [address] Performing Lab: [facility] [facility] [address] WBC 4.1 10*3/uL 3.6-11.2 RBC 3.20 10*6/uL [...] Specimen Type: BLOOD Comment: Test Performed by: [id number] Meter #: [id number] Ordering Provider: SILVIA REDDY Report Released Date/Time: Aug 14, 2024 05:52 AM Reporting Lab: [facility] [facility] [address] Performing Lab: [facility] [address] GLUCOSE,BLOOD- poct (STL) 135 mg/dL H 72-99 Aug 13, 2024 04:27 PM [facility] GLUCOSE,BLOOD-poct (STL) Specimen Type: BLOOD Comment: Test Performed by: [id number] Meter #: [id number] Ordering Provider: SILVIA REDDY Report Released Date/Time: Aug 13, 2024 04:41 PM Reporting Lab: [facility] [address] Performing Lab: [facility] [address] GLUCOSE,BLOOD- poct (STL) 181 mg/dL H -Aug 13, 2024 11:33 AM [facility] GLUCOSE,BLOOD-poct (STL) Specimen Type: BLOOD Comment: Test Performed by: [id number] Meter #: [id number] Ordering Provider: SILVIA REDDY Report Released Date/Time: Aug 13, 2024 03:55 PM Reporting Lab: [facility] [address] Performing Lab: [facility] [place] [address] GLUCOSE,BLOOD- poct (STL) 140 mg/dL H Aug 13, 2024 05:54 AM [facility] GLUCOSE,BLOOD-poct (STL) Specimen Type: BLOOD Comment: Test Performed by: [id number] Meter #: [id number] Ordering Provider: SILVIA REDDY Report Released Date/Time: Aug 13, 2024 06:20 AM Reporting Lab: [facility] [address] Performing Lab: [facility] [address] GLUCOSE,BLOOD- poct (STL) 112 mg/dL H Aug 12, 2024 04:35 PM [facility] GLUCOSE,BLOOD-poct (STL) Specimen Type: BLOOD Comment: Test Performed by: [id number] Meter #: [id number] Ordering Provider: SILVIA REDDY Report Released Date/Time: Aug 12, 2024 04:47 PM Reporting Lab: [facility] [address] Performing Lab: [facility] [address] GLUCOSE,BLOOD- poct (STL) 128 mg/dL H 72-99 Aug 12, 2024 11:26 AM [facility] GLUCOSE,BLOOD-poct (STL) Specimen Type: BLOOD Comment: Test Performed by: [id number] Meter #: [id number] Ordering Provider: SILVIA REDDY Report Released Date/Time: Aug 12, 2024 11:45 AM Reporting Lab: [facility] [address] Performing Lab: [facility] [address] GLUCOSE,BLOOD- poct (STL) 188 mg/dL H 72-Aug 12, 2024 06:13 AM [facility] GLUCOSE,BLOOD-poct (STL) Specimen Type: BLOOD Comment: Test Performed by: [id number] Meter #: [id number] Ordering Provider: SILVIA REDDY Report Released Date/Time: Aug 12, 2024 06:25 AM Reporting Lab: [facility] [address] Performing Lab: [facility] [address] GLUCOSE,BLOOD- poct (STL) 116 mg/dL H 72-99 Aug 11, 2024 04:10 PM [facility] GLUCOSE,BLOOD-poct (STL) Specimen Type: BLOOD Comment: Test Performed by: [id number] Meter #: [id number] Ordering Provider: SILVIA REDDY Report Released Date/Time: Aug 11, 2024 04:27 PM Reporting Lab: [facility]1 [place] [address] Performing Lab: [facility] [address] GLUCOSE,BLOOD- poct (STL) 184 mg/dL H 72-99 Aug 11, 2024 01:44 PM [facility] MRSA SURVL NARES DNA Specimen [...] 11, 2024 02:03 PM Reporting Lab: [address] [address] Performing Lab: [address] [address] MRSA SURVL NARES DNA Negative Negative Jul 20, 2024 11:18 AM [facility] APTT Specimen Type: PLASMA No comment entered. Ordering Provider: MANUEL BAIRD Report Released Date/Time: Jul 19, 2024 04:00 PM Reporting Lab: [address] [address] Performing Lab: [address] [address] APTT 32.1 s 26.7-39.9 Jul 20, 2024 11:18 AM [facility] PT/INR NEW (L-VT) Specimen Type: PLASMA No comment entered. Ordering Provider: MANUEL BAIRD Report Released Date/Time: Jul 19, 2024 04:00 PM Reporting Lab: [address] [address] Performing Lab: [address] [address] PROTIME 14.4 s H 9.4-12.5 INR VALUE 1.3 {INR} Jul 20, 2024 11:18 AM [facility] CBC Specimen Type: BLOOD No comment entered. Ordering Provider: MANUEL BAIRD Report Released Date/Time: Jul 19, 2024 04:00 PM Reporting Lab: [facility] [address] [facility] [address] Performing Lab: [facility] [address] [facility] [address] WBC 4.7 10*3/uL 3.6-11.2 RBC 4.86 10*6/uL [...] 98.1 75 101/61 18 95 0 [facility] N Aug 16, 2024 09:51 AM 97.7 80 136/85 18 94 [facility] Aug 16, 2024 05:35 AM 97.1 86 96/60 18 92 0 [facility] N Advance Directives: All historical [...] DIRECTIVE DISCUSSION ERICK BARDALES [facility]
--- OUTSIDE RECORDS SUMMARY | 2024-11-17 04:13 | XMS_ITS | Encounter Summary ---
Author Name [facility] [place] [facility] [place] Address [address] [place] [address] Care Team Providers Care Manufacturer Representative Name Role Phone MANUEL BAIRD Primary Care [...] PART A Apr 08, 2017 PART A [id number] [phone] ASHLEY WALKER PATIENT Selected Encounter This section includes the information on record at [place] for the Encounter. Date/Time Encounter Type Encounter Description Reason Provider Source Aug 16, 2024 01:26 PM QNHP OL DIG ASSMT&MGMT 21+ CLINICAL PHARMACY ICD-10-CM Z51.81 Encounter for therapeutic drug level monitoring [facility] Encounter Template Text not used by [facility] Assessments - Encounter Diagnoses This section includes the primary and secondary diagnoses documented for the Encounter. Date/Time Primary/Secondary Diagnosis Diagnosis Name Provider Source Aug 16, 2024 02:31 PM PRIMARY Encounter for therapeutic drug level monitoring [facility] Plan of Treatment: Future Appointments (+ 6 months) and Future Tests (+/- 45 days) The Plan of Treatment section includes future care activities for the [place] [facility] [place] [facility] This section includes future [...] 24, 2024 10:00 AM AMBULATORY - MEDICINE [facility] Aug 24, 2024 10:30 AM AMBULATORY - MEDICINE [facility] Aug 30, 2024 09:30 AM AMBULATORY MEDICINE [facility] Aug 31, 2024 01:00 PM AMBULATORY - SURGERY [facility] Sep 21, 2024 01:30 PM AMBULATORY - MEDICINE [facility] Sep 22, 2024 11:00 AM AMBULATORY - MEDICINE [facility] Sep 29, 2024 12:30 PM AMBULATORY - MEDICINE [facility] Oct 02, 2024 09:30 AM AMBULATORY MEDICINE [facility] Nov 20, 2024 10:30 AM AMBULATORY - SURGERY [facility] Nov 21, 2024 10:00 AM AMBULATORY - NONE [facility] Dec 11, 2024 10:30 AM AMBULATORY [...] STAT SP [facility] Aug 02, 2024 12:00 AM Laboratory - Chemistry Order COMPREHENSIVE METABOLIC PANEL GREEN LI/HEP BLD/PLAS PLASMA SP [facility] Aug 17, 2024 03:47 PM Consult Order [facility] Cons Bedside THE [...] Reporting Lab: [facility] [address] Performing Lab: [facility] [address] MAGNESIUM 1.8 mg/dL 1.6-2.6 Aug 23, 2024 08:21 AM [facility] CBC Specimen Type: BLOOD No comment entered. Ordering Provider: SIMEON REDDY Report Released Date/Time: Aug 22, 2024 11:19 AM Reporting Lab: [facility] [address] Performing Lab: [facility] [address] WBC 4.0 10*3/uL 3.6-11.2 RBC 3.65 10*6/uL [...] Specimen Type: BLOOD Comment: Test Performed by: [id number] Meter #: [id number] Ordering Provider: SIMEON REDDY Report Released Date/Time: Aug 23, 2024 05:23 AM Reporting Lab: [facility] [address] Performing Lab: [facility] [address] GLUCOSE,BLOOD- poct (STL) 99 mg/dL 72-99 Aug 23, 2024 02:45 AM [facility] OCCULT BLOOD FIT X1 SCREEN Specimen Type: FECES No comment entered. Ordering Provider: SIMEON REDDY Report Released Date/Time: Aug 22, 2024 11:23 AM Reporting Lab: [address] [address] Performing Lab: [address] [address] OCCULT BLOOD (FIT) #1 OF 1 Negative Negative Aug 22, 2024 07:30 PM [facility] OCCULT BLOOD FIT X1 SCREEN Specimen Type: FECES No comment entered. Ordering Provider: SIMEON REDDY Report Released Date/Time: Aug 22, 2024 11:23 AM Reporting Lab: [address] [address] Performing Lab: [address] [address] OCCULT BLOOD (FIT) #1 OF 1 Negative Negative Aug 22, 2024 06:15 PM [facility] OCCULT BLOOD FIT X1 SCREEN Specimen Type: FECES No comment entered. Ordering Provider: SIMEON REDDY Report Released Date/Time: Aug 22, 2024 11:23 AM Reporting Lab: [facility] [address] [facility] [address] Performing Lab: [address] [address] OCCULT BLOOD (FIT) #1 OF 1 Negative Negative Aug 22, 2024 04:24 PM [facility] GLUCOSE,BLOOD-poct (STL) Specimen Type: BLOOD Comment: Test Performed by: [id number] Meter #: [id number] Ordering Provider: SIMEON REDDY Report Released Date/Time: Aug 22, 2024 04:36 PM Reporting Lab: [facility] [address] Performing Lab: [facility] [address] GLUCOSE,BLOOD- poct (STL) 176 mg/dL H 72-99 Aug 22, 2024 04:23 PM [facility] GLUCOSE,BLOOD-poct (STL) Specimen Type: BLOOD Comment: Test Performed by: [id number] Meter #: [id number] Ordering Provider: SIMEON REDDY Report Released Date/Time: Aug 22, 2024 04:36 PM Reporting Lab: [facility] [address] Performing Lab: [facility] [address] GLUCOSE,BLOOD- poct (STL) 221 mg/dL H 72-99 Aug 22, 2024 11:15 AM [facility] GLUCOSE,BLOOD-poct (STL) Specimen Type: BLOOD Comment: Test Performed by: [id number] Meter #: [id number] Ordering Provider: SIMEON REDDY Report Released Date/Time: Aug 22, 2024 11:27 AM Reporting Lab: [facility] [address] Performing Lab: [facility] [address] GLUCOSE,BLOOD- poct (STL) 140 mg/dL H 72-99 Aug 22, 2024 08:03 AM [facility] FERRITIN Specimen Type: SERUM No comment entered. Ordering Provider: JUDIT PERKINS Report Released Date/Time: Aug 18, 2024 11:01 AM Reporting Lab: [facility] [address] [facility] [address] Performing Lab: [address] [address] FERRITIN 79.50 ng/mL 22-275 Aug 22, 2024 08:03 AM [facility] IRON/TIBC PROFILE Specimen Type: SERUM No comment entered. Ordering Provider: JUDIT PERKINS Report Released Date/Time: Aug 18, 2024 11:01 AM Reporting Lab: [facility] [address] [facility] [address] Performing Lab: [facility] [address] [place] [address] TIBC 283 ug/dL 250-450 TRANSFERRIN 226 mg/dL 163-344 IRON SATURATION 7 L 20-50 IRON 19 ug/dL L 65-175 Aug 22, 2024 08:03 AM [facility] B12 Specimen Type: SERUM No comment entered. Ordering Provider: JUDIT PERKINS Report Released Date/Time: Aug 18, 2024 11:01 AM Reporting Lab: [facility] [address] Performing Lab: [facility] [address] B12 631 pg/mL 213-816 Aug 22, 2024 08:03 AM [facility] COMPREHENSIVE METABOLIC PANEL Specimen Type: PLASMA Comment: No hemolysis noted. Ordering Provider: SIMEON REDDY Report Released Date/Time: Aug 17, 2024 01:18 PM Reporting Lab: [facility] [address] [facility] [address] Performing Lab: [facility] [address] [facility] [address] CREATININE 0.80 mg/dL 0.7-1.3 UREA NITROGEN 9.7 [...] 94.0 >60 Aug 22, 2024 08:03 AM [facility] CBC Specimen Type: BLOOD No comment entered. Ordering Provider: SIMEON REDDY Report Released Date/Time: Aug 17, 2024 01:18 PM Reporting Lab: [facility] [address] Performing Lab: [facility] [address] WBC 3.5 10*3/uL L 3.6-11.2 RBC 3.23 [...] NRBC% 0 Aug 22, 2024 05:03 AM [facility] GLUCOSE,BLOOD-poct (STL) Specimen Type: BLOOD Comment: Test Performed by: [id number] Meter #: [id number] Ordering Provider: SIMEON REDDY Report Released Date/Time: Aug 22, 2024 06:17 AM Reporting Lab: [facility] [place] [address] Performing Lab: [facility] [place] [address] GLUCOSE,BLOOD- poct (STL) 170 mg/dL H 72-99 Aug 21, 2024 04:32 PM [facility] GLUCOSE,BLOOD-poct (STL) Specimen Type: BLOOD Comment: Test Performed by: [id number] Meter #: [id number] Ordering Provider: SIMEON REDDY Report Released Date/Time: Aug 21, 2024 04:49 PM Reporting Lab: [facility] [place] [address] Performing Lab: [facility] [place] [address] GLUCOSE,BLOOD- poct (STL) 169 mg/dL H 72-99 Aug 21, 2024 11:53 AM [facility] GLUCOSE,BLOOD-poct (STL) Specimen Type: BLOOD Comment: Test Performed by: [id number] Meter #: [id number] Ordering Provider: SIMEON REDDY Report Released Date/Time: Aug 21, 2024 12:11 PM Reporting Lab: [facility] [place] [address] Performing Lab: [facility] [address] GLUCOSE,BLOOD- poct (STL) 149 mg/dL H -Aug 21, 2024 05:10 AM [facility] GLUCOSE,BLOOD-poct (STL) Specimen Type: BLOOD Comment: Test Performed by: [id number] Meter #: [id number] Ordering Provider: SIMEON REDDY Report Released Date/Time: Aug 21, 2024 05:27 AM Reporting Lab: [facility] [address] Performing Lab: [facility] [address] GLUCOSE,BLOOD- poct (STL) 118 mg/dL H -Aug 20, 2024 04:38 PM [facility] GLUCOSE,BLOOD-poct (STL) Specimen Type: BLOOD Comment: Test Performed by: [id number] Meter #: [id number] Ordering Provider: SIMEON REDDY Report Released Date/Time: Aug 21, 2024 01:55 AM Reporting Lab: [facility] [address] Performing Lab: [facility] [address] GLUCOSE,BLOOD- poct (STL) 169 mg/dL H Aug 20, 2024 04:36 PM [facility] GLUCOSE,BLOOD-poct (STL) Specimen Type: BLOOD Comment: Test Performed by: [id number] Meter #: [id number] Ordering Provider: SIMEON REDDY Report Released Date/Time: Aug 21, 2024 01:55 AM Reporting Lab: [facility] [address] Performing Lab: [facility] [address] GLUCOSE,BLOOD- poct (STL) 395 mg/dL H Aug 20, 2024 11:45 AM [facility] GLUCOSE,BLOOD-poct (STL) Specimen Type: BLOOD Comment: Test Performed by: [id number] Meter #: [id number] Ordering Provider: SIMEON REDDY Report Released Date/Time: Aug 20, 2024 11:56 AM Reporting Lab: [facility] [address] Performing Lab: [facility] [address] GLUCOSE,BLOOD- poct (STL) 169 mg/dL H 72-Aug 20, 2024 05:06 AM [facility] GLUCOSE,BLOOD-poct (STL) Specimen Type: BLOOD Comment: Test Performed by: [id number] Meter #: [id number] Ordering Provider: SIMEON REDDY Report Released Date/Time: Aug 20, 2024 06:05 AM Reporting Lab: [facility] [address] Performing Lab: [facility] [address] GLUCOSE,BLOOD- poct (STL) 115 mg/dL H -Aug 19, 2024 04:23 PM [facility] GLUCOSE,BLOOD-poct (STL) Specimen Type: BLOOD Comment: Test Performed by: [id number] Meter #: [id number] Ordering Provider: SIMEON REDDY Report Released Date/Time: Aug 19, 2024 05:54 PM Reporting Lab: [facility] [address] Performing Lab: [facility] [address] GLUCOSE,BLOOD- poct (STL) 137 mg/dL H 72-Aug 19, 2024 11:28 AM [facility] GLUCOSE,BLOOD-poct (STL) Specimen Type: BLOOD Comment: Test Performed by: [id number] Meter #: [id number] Ordering Provider: SIMEON REDDY Report Released Date/Time: Aug 19, 2024 11:51 AM Reporting Lab: [facility] [address] Performing Lab: [facility] [address] GLUCOSE,BLOOD- poct (STL) 190 mg/dL H 72-Aug 19, 2024 05:21 AM [facility] GLUCOSE,BLOOD-poct (STL) Specimen Type: BLOOD Comment: Test Performed by: [id number] Meter #: [id number] Ordering Provider: SIMEON REDDY Report Released Date/Time: Aug 19, 2024 05:56 AM Reporting Lab: [facility] [address] Performing Lab: [facility] [address] GLUCOSE,BLOOD- poct (STL) 130 mg/dL H -Aug 18, 2024 04:49 PM [facility] GLUCOSE,BLOOD-poct (STL) Specimen Type: BLOOD Comment: Test Performed by: [id number] Meter #: [id number] Ordering Provider: SIMEON REDDY Report Released Date/Time: Aug 18, 2024 05:01 PM Reporting Lab: [facility] [address] Performing Lab: [facility] [address] GLUCOSE,BLOOD- poct (STL) 129 mg/dL H 72-Aug 18, 2024 11:23 AM [facility] GLUCOSE,BLOOD-poct (STL) Specimen Type: BLOOD Comment: Test Performed by: [id number] Meter #: [id number] Ordering Provider: SIMEON REDDY Report Released Date/Time: Aug 18, 2024 11:41 AM Reporting Lab: [facility] [address] Performing Lab: [facility] [address] GLUCOSE,BLOOD- poct (STL) 180 mg/dL H Aug 18, 2024 05:08 AM [facility] GLUCOSE,BLOOD-poct (STL) Specimen Type: BLOOD Comment: Test Performed by: [id number] Meter #: [id number] Ordering Provider: SIMEON REDDY Report Released Date/Time: Aug 18, 2024 05:31 AM Reporting Lab: [facility] [address] Performing Lab: [facility] [address] GLUCOSE,BLOOD- poct (STL) 127 mg/dL H Aug 17, 2024 07:32 PM [facility] GLUCOSE,BLOOD-poct (STL) Specimen Type: BLOOD Comment: Test Performed by: [id number] Meter #: [id number] Ordering Provider: SIMEON REDDY Report Released Date/Time: Aug 17, 2024 07:59 PM Reporting Lab: [facility] [address] Performing Lab: [facility] [address] GLUCOSE,BLOOD- poct (STL) 154 mg/dL H Aug 17, 2024 04:24 PM [facility] GLUCOSE,BLOOD-poct (STL) Specimen Type: BLOOD Comment: Test Performed by: [id number] Meter #: [id number] Ordering Provider: SIMEON REDDY Report Released Date/Time: Aug 17, 2024 04:35 PM Reporting Lab: [facility] [address] Performing Lab: [facility] [address] GLUCOSE,BLOOD- poct (STL) 178 mg/dL H Aug 17, 2024 05:09 AM [facility] GLUCOSE,BLOOD-poct (STL) Specimen Type: BLOOD Comment: Test Performed by: [id number] Meter #: [id number] Ordering Provider: SIMEON REDDY Report Released Date/Time: Aug 17, 2024 05:54 AM Reporting Lab: [facility] [address] Performing Lab: [facility] [address] GLUCOSE,BLOOD- poct (STL) 124 mg/dL H -Aug 16, 2024 07:40 PM [facility] GLUCOSE,BLOOD-poct (STL) Specimen Type: BLOOD Comment: Test Performed by: [id number] Meter #: [id number] Ordering Provider: SIMEON REDDY Report Released Date/Time: Aug 16, 2024 08:28 PM Reporting Lab: [facility] [address] Performing Lab: [facility] [address] GLUCOSE,BLOOD- poct (STL) 144 mg/dL H Aug 16, 2024 04:19 PM [facility] GLUCOSE,BLOOD-poct (STL) Specimen Type: BLOOD Comment: Test Performed by: [id number] Meter #: [id number] Ordering Provider: SIMEON REDDY Report Released Date/Time: Aug 16, 2024 04:45 PM Reporting Lab: [facility] [address] Performing Lab: [facility] [address] GLUCOSE,BLOOD- poct (STL) 138 mg/dL H -Aug 16, 2024 11:52 AM [facility] GLUCOSE,BLOOD-poct (STL) Specimen Type: BLOOD Comment: Test Performed by: [id number] Meter #: [id number] Ordering Provider: SIMEON REDDY Report Released Date/Time: Aug 16, 2024 12:04 PM Reporting Lab: [facility] [address] Performing Lab: [facility] [address] GLUCOSE,BLOOD- poct (STL) 135 mg/dL H -Aug 16, 2024 05:24 AM [facility] GLUCOSE,BLOOD-poct (STL) Specimen Type: BLOOD Comment: Test Performed by: [id number] Meter #: [id number] Ordering Provider: SIMEON REDDY Report Released Date/Time: Aug 16, 2024 05:38 AM Reporting Lab: [facility] [address] Performing Lab: [facility] [address] GLUCOSE,BLOOD- poct (STL) 151 mg/dL H -Aug 15, 2024 07:31 PM [facility] GLUCOSE,BLOOD-poct (STL) Specimen Type: BLOOD Comment: Test Performed by: [id number] Meter #: [id number] Ordering Provider: SIMEON REDDY Report Released Date/Time: Aug 15, 2024 08:07 PM Reporting Lab: [facility] [address] Performing Lab: [facility] [address] GLUCOSE,BLOOD- poct (STL) 173 mg/dL H -Aug 15, 2024 04:18 PM [facility] GLUCOSE,BLOOD-poct (STL) Specimen Type: BLOOD Comment: Test Performed by: [id number] Meter #: [id number] Ordering Provider: SIMEON REDDY Report Released Date/Time: Aug 15, 2024 04:59 PM Reporting Lab: [facility] [address] Performing Lab: [facility] [address] GLUCOSE,BLOOD- poct (STL) 136 mg/dL H Aug 15, 2024 04:16 PM [facility] GLUCOSE,BLOOD-poct (STL) Specimen Type: BLOOD Comment: Test Performed by: [id number] Meter #: [id number] Ordering Provider: SIMEON REDDY Report Released Date/Time: Aug 15, 2024 04:59 PM Reporting Lab: [facility] [address] Performing Lab: [facility] [address] GLUCOSE,BLOOD- poct (STL) 194 mg/dL H Aug 15, 2024 11:39 AM [facility] GLUCOSE,BLOOD-poct (STL) Specimen Type: BLOOD Comment: Test Performed by: [id number] Meter #: [id number] Ordering Provider: SIMEON REDDY Report Released Date/Time: Aug 15, 2024 12:00 PM Reporting Lab: [facility] [address] Performing Lab: [facility] [address] GLUCOSE,BLOOD- poct (STL) 127 mg/dL H Aug 15, 2024 05:07 AM [facility] GLUCOSE,BLOOD-poct (STL) Specimen Type: BLOOD Comment: Test Performed by: [id number] Meter #: [id number] Ordering Provider: SIMEON REDDY Report Released Date/Time: Aug 15, 2024 06:14 AM Reporting Lab: [facility] [address] Performing Lab: [facility] [address] GLUCOSE,BLOOD- poct (STL) 151 mg/dL H Aug 14, 2024 04:22 PM [facility] GLUCOSE,BLOOD-poct (STL) Specimen Type: BLOOD Comment: Test Performed by: [id number] Meter #: [id number] Ordering Provider: SIMEON REDDY Report Released Date/Time: Aug 14, 2024 04:52 PM Reporting Lab: [facility] [address] Performing Lab: [facility] [address] GLUCOSE,BLOOD- poct (STL) 129 mg/dL H 72-Aug 14, 2024 11:21 AM [facility] GLUCOSE,BLOOD-poct (STL) Specimen Type: BLOOD Comment: Test Performed by: [id number] Meter #: [id number] Ordering Provider: SIMEON REDDY Report Released Date/Time: Aug 14, 2024 11:37 AM Reporting Lab: [facility] [address] Performing Lab: [facility] [address] GLUCOSE,BLOOD- poct (STL) 135 mg/dL H 72-Aug [...] For additional information, please refer to [email or web address] (This link is being provided for information/ educational purposes only.) Test Performed by [facility], [facility], [id number] [place] [address] Tommie Garcia M.D., Ph.D., Director of Laboratories , [facility] [id number] Ordering Provider: SIMEON REDDY Report Released Date/Time: Aug 11, 2024 03:58 PM Reporting Lab: [facility] [address] [facility] [address] Performing Lab: [facility] [address] [facility] .NIL - QUANTIFERON 0.04 [IU]/mL .MITOGEN-NIL 0.39 [IU]/mL .QUANTIFERON INDETERMINATE NEGATIVE .TB1-NIL <0.00 [IU]/mL .TB2-NIL <0.00 [IU]/mL Aug 14, 2024 06:59 AM [facility] MAGNESIUM Specimen Type: PLASMA Comment: No hemolysis noted. Ordering Provider: SIMEON REDDY Report Released Date/Time: Aug 11, 2024 03:58 PM Reporting Lab: [facility] [address] Performing Lab: [facility] [address] MAGNESIUM 1.9 mg/dL 1.6-2.6 Aug 14, 2024 06:59 AM [facility] B12 Specimen Type: SERUM No comment entered. Ordering Provider: SIMEON REDDY Report Released Date/Time: Aug 11, 2024 03:58 PM Reporting Lab: [facility] [address] Performing Lab: [facility] [address] B12 757 pg/mL 213-816 Aug 14, 2024 06:59 AM [facility] FOLATE (STL-MA) Specimen Type: SERUM No comment entered. Ordering Provider: SIMEON REDDY Report Released Date/Time: Aug 11, 2024 03:58 PM Reporting Lab: [facility] [place] [address] Performing Lab: [facility] [place] [address] FOLATE (L-MA) 6.8 ng/mL L 7-20 Aug 14, 2024 06:59 AM [facility] VITAMIN D, 25-HYDROXY Specimen Type: SERUM No comment entered. Ordering Provider: SIMEON REDDY Report Released Date/Time: Aug 11, 2024 03:58 PM Reporting Lab: [facility] [place] [address] Performing Lab: [facility] [place] [address] VITAMIN D, 25-HYDROXY 8.9 ng/mL L 30-96 Aug 14, 2024 06:59 AM [facility] CBC Specimen Type: BLOOD No comment entered. Ordering Provider: SIMEON REDDY Report Released Date/Time: Aug 11, 2024 03:58 PM Reporting Lab: [facility] [place] [address] Performing Lab: [facility] [place] [address] WBC 4.1 10*3/uL 3.6-11.2 RBC 3.20 10*6/uL [...] 10*3/uL 0.00-0.20 Aug 14, 2024 06:59 AM [facility] COMPREHENSIVE METABOLIC PANEL Specimen Type: PLASMA Comment: No hemolysis noted. Ordering Provider: SIMEON REDDY Report Released Date/Time: Aug 11, 2024 03:58 PM Reporting Lab: [facility] [id number] Performing Lab: [facility] [place] [id number] CREATININE 0.75 mg/dL 0.70-1.30 UREA NITROGEN 13.6 [...] 95.88 >60 Aug 14, 2024 05:08 AM [facility] GLUCOSE,BLOOD-poct (STL) Specimen Type: BLOOD Comment: Test Performed by: [id number] Meter #: [id number] Ordering Provider: SIMEON REDDY Report Released Date/Time: Aug 14, 2024 05:52 AM Reporting Lab: [facility] [id number] Performing Lab: [facility] [id number] GLUCOSE,BLOOD- poct (STL) 135 mg/dL H -Aug 13, 2024 04:27 PM [facility] GLUCOSE,BLOOD-poct (STL) Specimen Type: BLOOD Comment: Test Performed by: [id number] Meter #: [id number] Ordering Provider: SIMEON REDDY Report Released Date/Time: Aug 13, 2024 04:41 PM Reporting Lab: [facility] [id number] Performing Lab: [facility] [id number] GLUCOSE,BLOOD- poct (STL) 181 mg/dL H Aug 13, 2024 11:33 AM [facility] GLUCOSE,BLOOD-poct (STL) Specimen Type: BLOOD Comment: Test Performed by: [id number] Meter #: [id number] Ordering Provider: SIMEON REDDY Report Released Date/Time: Aug 13, 2024 03:55 PM Reporting Lab: [facility] [address] Performing Lab: [facility] [address] GLUCOSE,BLOOD- poct (STL) 140 mg/dL H Aug 13, 2024 05:54 AM [facility] GLUCOSE,BLOOD-poct (STL) Specimen Type: BLOOD Comment: Test Performed by: [id number] Meter #: [id number] Ordering Provider: SIMEON REDDY Report Released Date/Time: Aug 13, 2024 06:20 AM Reporting Lab: [facility] [address] Performing Lab: [facility] [place] [phone] GLUCOSE,BLOOD- poct (STL) 112 mg/dL H -Aug 12, 2024 04:35 PM [facility] GLUCOSE,BLOOD-poct (STL) Specimen Type: BLOOD Comment: Test Performed by: [id number] Meter #: [id number] Ordering Provider: SIMEON REDDY Report Released Date/Time: Aug 12, 2024 04:47 PM Reporting Lab: [facility] [address] Performing Lab: [facility] [address] GLUCOSE,BLOOD- poct (STL) 128 mg/dL H -Aug 12, 2024 11:26 AM [facility] GLUCOSE,BLOOD-poct (STL) Specimen Type: BLOOD Comment: Test Performed by: [id number] Meter #: [id number] Ordering Provider: SIMEON REDDY Report Released Date/Time: Aug 12, 2024 11:45 AM Reporting Lab: [facility] [address] Performing Lab: [facility] [address] GLUCOSE,BLOOD- poct (STL) 188 mg/dL H -Aug 12, 2024 06:13 AM [facility] GLUCOSE,BLOOD-poct (STL) Specimen Type: BLOOD Comment: Test Performed by: [id number] Meter #: [id number] Ordering Provider: SIMEON REDDY Report Released Date/Time: Aug 12, 2024 06:25 AM Reporting Lab: [facility] [address] Performing Lab: [facility] [address] GLUCOSE,BLOOD- poct (STL) 116 mg/dL H -Aug 11, 2024 04:10 PM [facility] GLUCOSE,BLOOD-poct (STL) Specimen Type: BLOOD Comment: Test Performed by: [id number] Meter #: [id number] Ordering Provider: SIMEON REDDY Report Released Date/Time: Aug 11, 2024 04:27 PM Reporting Lab: [facility] [address] Performing Lab: [facility] [address] GLUCOSE,BLOOD- poct (STL) 184 mg/dL H 72-99 Aug 11, 2024 01:44 PM [facility] MRSA SURVL NARES DNA Specimen [...] Aug 11, 2024 02:03 PM Reporting Lab: [facility] [address] [place] [address] Performing Lab: [facility] [address] [place] [phone] MRSA SURVL NARES DNA Negative Negative Jul 20, 2024 11:18 AM [facility] APTT Specimen Type: PLASMA No comment entered. Ordering Provider: MANUEL BAIRD Report Released Date/Time: Jul 19, 2024 04:00 PM Reporting Lab: [facility] [address] [place] [phone] Performing Lab: [address] [address] APTT 32.1 s 26.7-39.9 Jul 20, 2024 11:18 AM [facility] PT/INR NEW (STL-MA) Specimen Type: PLASMA No comment entered. Ordering Provider: BAIRD,YAFEI Report Released Date/Time: Jul 19, 2024 04:00 PM Reporting Lab: [facility] [address] [facility] [address] Performing Lab: [facility] [address] [facility] [address] PROTIME 14.4 s H 9.4-12.5 INR VALUE 1.3 {INR} Jul 20, 2024 11:18 AM [facility] CBC Specimen Type: BLOOD No comment entered. Ordering Provider: MANUEL BAIRD Report Released Date/Time: Jul 19, 2024 04:00 PM Reporting Lab: [facility] [address] [facility] [address] Performing Lab: [facility] [address] [facility] [address] WBC 4.7 10*3/uL 3.6-11.2 RBC 4.86 10*6/uL [...] PM 98.1 75 101/61 18 95 0 [facility] Aug 16, 2024 09:51 AM 97.7 80 136/85 18 94 [facility] Aug 16, 2024 05:35 AM 97.1 86 96/60 18 92 0 [facility] Advance Directives: All historical [...] DISCUSSION ERICK BARDALES [facility] Encounter Notes: All associated encounter notes This section contains the clinical notes associated to the Encounter. Date/Time Encounter Note(s) Provider Source Aug 16, 2024 01:26 PM PHARMACY NOTE: LOCAL TITLE: PHARMACY [facility] STL STANDARD TITLE: PHARMACY NOTE DATE OF NOTE: AUG 16, 2024@13:26 ENTRY DATE: AUG 16, 2024@13:26:58 AUTHOR: RICKEY KC EXP COSIGNER: URGENCY: STATUS: COMPLETED PHARMACY [facility] STL Has ADDENDA [facility] MEDICATION REGIMEN REVIEW S: CHET WALKER is a 74 year old MALE admitted to on 08/11/2024 for assisted with an admitting diagnosis of CAD s/p CABG. Patient previously at [facility] for planned CABG x 3 on 07/24/2024. Patient received post op care in ICU where he had pacemaker implanted for complete heart block. Post op course notable for hypotension and hypoglycemia with adjustment of medications. Patient admitted to for rehabilitation. PMH significant for asthma, HF, DM, and GERD O: Allergies/ADR: TRAMADOL Oxygen order: N Problem List includes: 1) Asthma (SNOMED CT 248876843) 2) Gastro-esophageal reflux disease (SNOMED CT 662408387) 3) Peptic Ulcer Disease * (ICD-9-CM 533.90) 4) Hypertension (SNOMED CT 88084445) 5) Neoplasm of pituitary gland (SNOMED CT 782464349) 6) Hyperlipidemia (SNOMED CT 31618131) 7) Erectile dysfunction associated with type 2 [...] 21) Obstructive Sleep Apnea of Adult (SCT 3946902961837) Active [facility] Medications: Active Inpatient Medications (including Supplies): Active Inpatient Medications Status ======= 1) ACETAMINOPHEN TAB 650MG PO Q6H PRN ACTIVE 2) ALBUTEROL (CFC-F) INHL,ORAL 1 PUFF INH ORAL QID PRN ACTIVE 3) ASPIRIN (ENTERIC-COATED)(OTC) TAB,EC 81MG PO QDAILY ACTIVE 4) ATORVASTATIN TAB 80MG PO QPM ACTIVE 5) CARBOXYMETHYLCELLULOSE 0.5% (PF) 1 DROP OU QID PRN ACTIVE 6) CARVEDILOL TAB 3.125MG PO CC BID ACTIVE 7) CLOPIDOGREL TAB 75MG PO QDAILY ACTIVE 8) DEXTROSE 24GM TUBE GEL,ORAL 1 TUBE PO Q15MIN PRN ACTIVE 9) DULOXETINE CAP,EC 60MG PO QDAILY ACTIVE 10) ERGOCALCIFEROL (HIGH DOSE VITAMIN D) 1250MCG PO ACTIVE MO@1700 x 8 weeks 11) FOLIC ACID TAB 1MG PO QDAILY ACTIVE 12) INSULIN ASPART (NOVOLOG) INJ SLIDING SCALE SQ TID ACTIVE AC ; 61-200: 0 UNITS; 201-250: 2 UNITS;251-300: 3 UNITS; 301-350: 4 UNITS; 351-400: 5 UNITS: CALL MOD ANYTIME >400 13) ISOSORBIDE MONONITRATE TAB,SA 15MG PO QDAILY ACTIVE 14) MAGNESIUM OXIDE TAB 800MG PO BID ACTIVE 15) MULTIVITAMIN CAP/TAB 1 TABLET PO QDAILY ACTIVE 16) OMEPRAZOLE CAP,EC 20MG PO QAMAC ACTIVE 17) PREGABALIN CAP,ORAL 100MG PO BID ACTIVE Reviewed [facility] Discharge Med List Outpatient Medications prior to hospitalization: Active and Recently Outpatient Medications (including Supplies): Issue Date Status [...] Expr:04-08-25 ABRUPTLY DISCONTINUE MEDICATION. 10) GLUCOSE SENSOR [employer] RADHIKA 3 PLUS ACTIVE Issu:05-15-24 Qty: 2 for 30 days Sig: USE SENSOR Refills: 9 Last:07-11-24 EVERY 15 DAYS FOR BLOOD SUGAR Expr:05-16-25 MONITORING CHANGE SENSOR/SITE EVERY 15 DAYS. TO REPLACE SENSOR FOR ANY REASON OR FOR TECHNICAL HELP PLEASE CALL [facility] HELP DESK: -SPECIFIC PHONE NUMBER: [phone]). 11) INSULIN,ASPART(EQV-NOVLG)100UN/ML FLXPEN ACTIVE Issu:02-17-24 Qty: 5 for 90 days Sig: INJECT 6 Refills: 1 Last:02-21-24 UNITS UNDER THE SKIN BEFORE SUPPER FOR Expr:02-17-25 DIABETES ADMINISTER 10 MINUTES BEFORE FOOD DIRECTED. REFRIGERATE UN-OPENED PENS. DISCARD CARTRIDGE 28 DAYS AFTER OPENING. 12) INSULIN,GLARG(TOUJEO MAX) 300 UNT/ML 3ML ACTIVE Issu:11-18-23 Qty: 8 for 76 days Sig: INJECT 90 Refills: 2 Last:08-21-24 UNITS UNDER THE SKIN ONCE A DAY [...] Expr:01-24-25 TIMES PER WEEK FOR WOUND CARE Issue Date Status Last Fill Inactive Outpatient Medications Refills Expiration ======= 1) ACCU-CHEK GUIDE (GLUCOSE) TEST STRIP Issu:03-22-23 Qty: 100 for 50 days Sig: USE 1 STRIP Refills: 0 Last:10-18-23 FOR BLOOD TEST TWICE A DAY FOR BLOOD Expr:03-22-24 SUGAR MONITORING 2) LANCET,SOFTCLIX Qty: 200 for 90 days Issu:07-02-23 Sig: USE LANCET FOR BLOOD TEST TWICE A Refills: 0 Last:09-20-23 DAY FOR BLOOD SUGAR MONITORING USE Expr:07-02-24 DIRECTED 3) LIDOCAINE 5% PATCH Qty: 30 for 30 days Issu:03-22-23 Sig: APPLY 1 PATCH TO SKIN SITE ONCE A Refills: 4 Last:02-02-24 DAY NEEDED FOR LOCAL ANESTHESIA Expr:03-22-24 APPLY PATCH AND PRESS FIRMLY FOR 10-15 SECONDS. KEEP ON FOR 12 HOURS THEN REMOVE PATCH FOR 12 HOURS. 4) PREGABALIN 200MG ORAL CAP Qty: 60 for Issu:02-02-24 30 days Sig: TAKE ONE CAPSULE BY Refills: 4 Last:03-28-24 MOUTH TWICE A DAY Expr:08-04-24 Start Date Active Non-VA Medications Refills Expiration ======= 1) Non-VA NAPROXEN NA 220MG TAB SiMG ACTIVE BY MOUTH NEEDED 26 Total Medications VS: Height: 70 in [177.8 cm] (06/29/2024 12:58) Weight: 211.9 lb [96.12 kg] (08/13/2024 10:48) BMI: 30.5 Temperature: 97.7 F [36.5 C] (08/16/2024 09:51) Blood Pressure: 136/85 (08/16/2024 09:51) Pulse: 80 (08/16/2024 09:51) Respirations: 18 (08/16/2024 09:51) Pain: 0 (08/16/2024 05:35) Pertinent Labs: SODIUM 134 L mEq/L 08/14/2024 06:00 POTASSIUM [...] 06:00 EGFR (CKD-EPI 2020) 95.88 08/14/2024 06:00 WBC 4.1 10*3/uL 08/14/2024 06:00 RBC 3.20 L 10*6/uL 08/14/2024 06:00 HGB 8.0 L g/dL 08/14/2024 06:00 HCT 25.6 L % 08/14/2024 06:00 MCV 80.0 fL 08/14/2024 06:00 RDW 15.9 H % 08/14/2024 06:00 PLT 167 10*3/uL 08/14/2024 06:00 TRIGLYCERIDE 145 mg/dL 04/07/2024 11:40 CHOLESTEROL 180 mg/dL 04/07/2024 11:40 HDL(New) 34 L mg/dL 04/07/2024 11:40 CALCULATED LDL 117 mg/dL 04/07/2024 11:40 HGA1C 7.0 H % 03/06/2024 09:52 TSH: TSH 3.510 uIU/mL 06/05/2024 09:00 VITAMIN D, 25-HYDROXY 8.9 L ng/mL 08/14/2024 06:00 Renal Dosing Assessment: Estimated CrCl based on IBW: 91.9ml/min No recommendation Hepatic Dosing Assessment: Diagnoses include fatty liver disease No recommendation Immunizations: COVID- declined 08/15/2024 INFLUENZA- declined 08/15/2024 TD(ADULT) UNSPECIFIED FORMULATION 01/01/2020 [facility]* <C> PNEUMOCOCCAL CONJUGATE PCV 13 08/05/2017 [facility]* PNEUMOCOCCAL POLYSACCHARIDE PPV23 03/10/2019 [facility]* ZOSTER LIVE 08/18/2016 [facility]* ZOSTER RECOMBINANT 2 08/31/2022 [facility]* ZOSTER RECOMBINANT 1 01/29/2022 [facility]* TB-QUANTIFERON- collected 08/14/2024 A: Current medication regimen has been assessed for appropriateness of medication use and monitoring. 1. Medications have been reviewed for potential reduction of polypharmacy. 2. Medications have been reviewed to ensure current and valid indications exist for their use. The following medications have been identified as having an invalid indication and/or lack documentation to support listed indication and require re-evaluation for use and/or updated documentation to support use: None 3. Inappropriate Therapeutic Duplications: NONE 4. Potential Significant Drug-Drug Interactions: Aspirin, clopidogrel, and duloxetine may increase risk of bleeding Duloxetine may increase exposure to carvedilol Omeprazole may decrease exposure to active metabolite of clopidogrel Potential Significant Drug-Food Interactions: Grapefruit juice consumption may increase atorvastatin exposure and myopathy risk and may reduce exposure to active metabolite of clopidogrel 5. Psychoactive medications: Antidepressant: duloxetine- attending notes for diabetic neuropathy 6. Pain: 0 (08/16/2024 05:35) Medications & usage (scheduled & prn): Pregabalin 100mg twice daily- compliant Duloxetine 60mg daily- compliant Acetaminophen 650mg po every 6 hours PRN pain- not used Pain scores have been 0 since admission 7. Medications that may increase fall risk: atorvastatin, carvedilol, insulin aspart, isosorbide mononitrate, pregabalin 8. Anticoagulant Therapy: none 9. Antibiotic Therapy: none 10. Diuretic use: none 11. Diabetes Management: - Goal A1c <8%, FPG 80-160, PPG <210 d/t age and DM with neuropathy per VA/DoD guidelines -- Last A1c is at goal (7.5% on 07/14 per OSH records) -- BG in [facility] over the past week have ranged from 112 to 194 mg/dl. (-)Low BG levels -- (+)statin therapy, (+)Aspirin therapy, (-)ACEI/ARB -- [place] currently prescribed insulin aspart per sliding scale TID ac -- Review of DM management- outpatient regimen includes semaglutide 1mg weekly, insulin aspart 6u TID ac, metformin ER 1000mg bid, insulin glagine 90u daily. Sliding scale insulin has not yet be given- consider reintroducing basal insulin at low dose 12. Potentially Inappropriate Medications in the Elderly (e.g. Beers Criteria): PPI >8 weeks for GERD: avoid use unless for high-risk patients, erosive esophagitis, Nelson's esophagitis, pathological hypersecretory condition, or demonstrated need for maintenance therapy due to increased risk of C. difficile infection and bone loss and fractures Sliding scale insulin: avoid use without concurrent use of basal or long-acting insulin due to higher risk of hypoglycemia without improvement in hyperglycemia management. 13. PRN medication usage: Prn acetaminophen, prn albuterol, prn dextrose, prn carboxymethylcellulose - not used 14. Medication Reconciliation: Medication changes during hospitalization at [facility]: Started: acetaminophen, aspirin, clopidogrel, isosorbide mononitrate, insulin lispro, magnesium oxide Changed: albuterol, ammonium lactate, atorvastatin, bumetanide, insulin glargine, pregabalin Stopped: insulin aspart, carvedilol, meloxicam, methocarbamol, sacubutril/valsartan Medication changes upon admission to [facility]: Started: insulin aspart, carvedilol, ergocalciferol, folic acid Changed: albuterol Stopped: ammonium lactate, bumetanide, insulin glargine, insulin lispro, metformin, naproxen, semaglutide Recently outpatient medications- lidocaine P: Recommendations are as follows: 1. Recommend reviewing if patient would benefit from titrating back up to home pregabalin dose for diabetic neuropathy- noted patient reported numbness/tingling on 08/11 attending note. [facility] records recommended increasing pregabalin to home dose as needed after discharge Resident will continue to be followed with monthly medication regimen reviews while in the [facility]. Time spent on review: 60 minutes /shen/ Rickey Kc PharmD, [facility] Clinical Pharmacist- [facility] Signed: 08/16/2024 14:40 Receipt Acknowledged By: 08/16/2024 15:16 /shen/ JUDIT PERKINS PHYSICIAN [facility] 08/17/2024 10:09 /shen/ JONAS RAMSAY Physician-[employer], [facility] 08/17/2024 08:17 /shen/ Simeon Reddy APN,[employer]- Advanced Practice Nurse 08/16/2024 ADDENDUM STATUS: COMPLETED 1. Recommend reviewing if patient would benefit from titrating back up to home pregabalin dose for diabetic neuropathy- noted patient reported numbness/tingling on 08/11 attending note. [facility] records recommended increasing pregabalin to home dose as needed after discharge Agreed, will discuss this week. /shen/ JUDIT PERKINS PHYSICIAN [facility] Signed: 08/16/2024 15:16 RICKEY KC [facility]
--- OUTSIDE RECORDS SUMMARY | 2024-11-17 04:14 | XMS_ITS | Encounter Summary ---
Author Name [facility] Organization [facility] [place] [facility] [place] Address [address] [place] [address] Care Team Providers Care Bag Hanger Name Role Phone MANUEL BAIRD Primary Care [...] PART A Apr 08, 2017 PART A [id number] ASHLEY WALKER PATIENT Selected Encounter This section includes the information on record at [place] for the Encounter. Date/Time Encounter Type Encounter Description Reason Pro vider Source Aug 16, 2024 06:20 PM Inpatient Visit OCCUPATIONAL THERAPY IHE Encounter Template Text not used [...] 24, 2024 10:00 AM AMBULATORY - MEDICINE [facility] Aug 24, 2024 10:30 AM AMBULATORY - MEDICINE [facility] Aug 30, 2024 09:30 AM AMBULATORY MEDICINE [facility] Aug 31, 2024 01:00 PM AMBULATORY - SURGERY [facility] Sep 21, 2024 01:30 PM AMBULATORY - MEDICINE [facility] Sep 22, 2024 11:00 AM AMBULATORY - MEDICINE [facility] Sep 29, 2024 12:30 PM AMBULATORY - MEDICINE [facility] Oct 02, 2024 09:30 AM AMBULATORY - MEDICINE [facility] Nov 20, 2024 10:30 AM AMBULATORY - SURGERY . L [facility] Nov 21, 2024 10:00 AM AMBULATORY - NONE [facility] Dec 11, 2024 10:30 AM AMBULATORY - MEDICINE [facility] Active, Pending, and Scheduled Orders This section includes a listing of several types of active, pending, and scheduled orders, including clinic medications orders, diagnostic test orders, procedure orders and consult orders; where the start date of the order is 45 days before the date of the Encounter or 45 days after the date of theEncounter. The data comes from all [facility]. Test Date/Time Test Type Test Details Facility Name Aug 02, 2024 12:00 AM Laboratory - Chemistry Order CBC BLOOD STAT SP [facility] Aug 02, 2024 12:00 AM Laboratory - Chemistry Order COMPREHENSIVE METABOLIC PANEL GREEN LI/HEP BLD/PLAS PLASMA SP [facility] Aug 17, 2024 03:47 PM Consult Order [facility] Cons Bedside [facility] Lab Results: +/- 30 days of [...] Range Comment Aug 23, 2024 08:21 AM [facility] MAGNESIUM Specimen Type: PLASMA No comment entered. Ordering Provider: SILVIA REDDY Report Released Date/Time: Aug 22, 2024 11:26 AM Reporting Lab: [facility] [address] Performing Lab: [facility] [place] [id number] MAGNESIUM 1.8 mg/dL 1.6-2.6 Aug 23, 2024 08:21 AM [facility] CBC Specimen Type: BLOOD No comment entered. Ordering Provider: SILVIA REDDY Report Released Date/Time: Aug 22, 2024 11:19 AM Reporting Lab: [facility] [address] Performing Lab: [facility] [address] WBC 4.0 10*3/uL 3.6-11.2 RBC 3.65 10*6/uL [...] 10*3/uL 0.00-0.20 Aug 23, 2024 05:12 AM [facility] GLUCOSE,BLOOD-poct (STL) Specimen Type: BLOOD Comment: Test Performed by: [id number] Meter #: [id number] Ordering Provider: SILVIA REDDY Report Released Date/Time: Aug 23, 2024 05:23 AM Reporting Lab: [facility] [address] Performing Lab: [facility] [address] GLUCOSE,BLOOD- poct (STL) 99 mg/dL 72-99 Aug 23, 2024 02:45 AM [facility] OCCULT BLOOD FIT X1 SCREEN Specimen Type: FECES No comment entered. Ordering Provider: SILVIA REDDY Report Released Date/Time: Aug 22, 2024 11:23 AM Reporting Lab: [address] [address] Performing Lab: [facility] [address] [place] [address] OCCULT BLOOD (FIT) #1 OF 1 Negative Negative Aug 22, 2024 07:30 PM [facility] OCCULT BLOOD FIT X1 SCREEN Specimen Type: FECES No comment entered. Ordering Provider: SILVIA REDDY Report Released Date/Time: Aug 22, 2024 11:23 AM Reporting Lab: [facility] [address] [place] [address] Performing Lab: [facility] [address] [place] [address] OCCULT BLOOD (FIT) #1 OF 1 Negative Negative Aug 22, 2024 06:15 PM [facility] OCCULT BLOOD FIT X1 SCREEN Specimen Type: FECES No comment entered. Ordering Provider: SILVIA REDDY Report Released Date/Time: Aug 22, 2024 11:23 AM Reporting Lab: [address] [address] Performing Lab: [facility] [address] [facility] [address] OCCULT BLOOD (FIT) #1 OF 1 Negative Negative Aug 22, 2024 04:24 PM [facility] GLUCOSE,BLOOD-poct (STL) Specimen Type: BLOOD Comment: Test Performed by: [id number] Meter #: [id number] Ordering Provider: SILVIA REDDY Report Released Date/Time: Aug 22, 2024 04:36 PM Reporting Lab: [facility] [address] Performing Lab: [facility] [address] GLUCOSE,BLOOD- poct (STL) 176 mg/dL H 72-Aug 22, 2024 04:23 PM [facility] GLUCOSE,BLOOD-poct (STL) Specimen Type: BLOOD Comment: Test Performed by: [id number] Meter #: [id number] Ordering Provider: SILVIA REDDY Report Released Date/Time: Aug 22, 2024 04:36 PM Reporting Lab: [facility] [address] Performing Lab: [facility] [address] GLUCOSE,BLOOD- poct (STL) 221 mg/dL H 72-99 Aug 22, 2024 11:15 AM [facility] GLUCOSE,BLOOD-poct (STL) Specimen Type: BLOOD Comment: Test Performed by: [id number] Meter #: [id number] Ordering Provider: SILVIA REDDY Report Released Date/Time: Aug 22, 2024 11:27 AM Reporting Lab: [facility] [address] Performing Lab: [facility] [address] GLUCOSE,BLOOD- poct (STL) 140 mg/dL H 72-99 Aug 22, 2024 08:03 AM [facility] FERRITIN Specimen Type: SERUM No comment entered. Ordering Provider: JUDIT PERKINS Report Released Date/Time: Aug 18, 2024 11:01 AM Reporting Lab: [facility] [address] [facility] [address] Performing Lab: [facility] [address] [facility] [address] FERRITIN 79.50 ng/mL 22-275 Aug 22, 2024 08:03 AM [facility] IRON/TIBC PROFILE Specimen Type: SERUM No comment entered. Ordering Provider: JUDIT PERKINS Report Released Date/Time: Aug 18, 2024 11:01 AM Reporting Lab: [facility] [address] [facility] [address] Performing Lab: [address] [address] TIBC 283 ug/dL 250-450 TRANSFERRIN 226 mg/dL 163-344 IRON SATURATION 7 L 20-50 IRON 19 ug/dL L 65-175 Aug 22, 2024 08:03 AM [facility] B12 Specimen Type: SERUM No comment entered. Ordering Provider: JUDIT PERKINS Report Released Date/Time: Aug 18, 2024 11:01 AM Reporting Lab: [facility] [address] Performing Lab: [facility] [address] B12 631 pg/mL 213-816 Aug 22, 2024 08:03 AM [facility] COMPREHENSIVE METABOLIC PANEL Specimen Type: PLASMA Comment: No hemolysis noted. Ordering Provider: SILVIA REDDY Report Released Date/Time: Aug 17, 2024 01:18 PM Reporting Lab: [facility] [address] [facility] [address] Performing Lab: [place] [id number] [facility] [address] CREATININE 0.80 mg/dL 0.7-1.3 UREA NITROGEN 9.7 [...] >60 Aug 22, 2024 08:03 AM [facility] CBC Specimen Type: BLOOD No comment entered. Ordering Provider: SILVIA REDDY Report Released Date/Time: Aug 17, 2024 01:18 PM Reporting Lab: [facility] [address] Performing Lab: [facility] [address] WBC 3.5 10*3/uL L 3.6-11.2 RBC 3.23 [...] NRBC% 0 Aug 22, 2024 05:03 AM [facility] GLUCOSE,BLOOD-poct (STL) Specimen Type: BLOOD Comment: Test Performed by: [id number] Meter #: [id number] Ordering Provider: SILVIA REDDY Report Released Date/Time: Aug 22, 2024 06:17 AM Reporting Lab: [facility] [address] Performing Lab: [facility] [address] GLUCOSE,BLOOD- poct (STL) 170 mg/dL H 72-Aug 21, 2024 04:32 PM [facility] GLUCOSE,BLOOD-poct (STL) Specimen Type: BLOOD Comment: Test Performed by: [id number] Meter #: [id number] Ordering Provider: SILVIA REDDY Report Released Date/Time: Aug 21, 2024 04:49 PM Reporting Lab: [facility] [address] Performing Lab: [facility] [address] GLUCOSE,BLOOD- poct (STL) 169 mg/dL H -Aug 21, 2024 11:53 AM [facility] GLUCOSE,BLOOD-poct (STL) Specimen Type: BLOOD Comment: Test Performed by: [id number] Meter #: [id number] Ordering Provider: SILVIA REDDY Report Released Date/Time: Aug 21, 2024 12:11 PM Reporting Lab: [facility] [address] Performing Lab: [facility] [address] GLUCOSE,BLOOD- poct (STL) 149 mg/dL H 72-99 Aug 21, 2024 05:10 AM [facility] GLUCOSE,BLOOD-poct (STL) Specimen Type: BLOOD Comment: Test Performed by: [id number] Meter #: [id number] Ordering Provider: SILVIA REDDY Report Released Date/Time: Aug 21, 2024 05:27 AM Reporting Lab: [facility] [place] [address] Performing Lab: [facility] [place] [address] GLUCOSE,BLOOD- poct (STL) 118 mg/dL H 72-Aug 20, 2024 04:38 PM [facility] GLUCOSE,BLOOD-poct (STL) Specimen Type: BLOOD Comment: Test Performed by: [id number] Meter #: [id number] Ordering Provider: SILVIA REDDY Report Released Date/Time: Aug 21, 2024 01:55 AM Reporting Lab: [facility] [place] [address] Performing Lab: [facility] [place] [address] GLUCOSE,BLOOD- poct (STL) 169 mg/dL H -Aug 20, 2024 04:36 PM [facility] GLUCOSE,BLOOD-poct (STL) Specimen Type: BLOOD Comment: Test Performed by: [id number] Meter #: [id number] Ordering Provider: SILVIA REDDY Report Released Date/Time: Aug 21, 2024 01:55 AM Reporting Lab: [facility] [place] [address] Performing Lab: [facility] [place] [address] GLUCOSE,BLOOD- poct (STL) 395 mg/dL H 72-Aug 20, 2024 11:45 AM [facility] GLUCOSE,BLOOD-poct (STL) Specimen Type: BLOOD Comment: Test Performed by: [id number] Meter #: [id number] Ordering Provider: SILVIA REDDY Report Released Date/Time: Aug 20, 2024 11:56 AM Reporting Lab: [facility] [place] [address] Performing Lab: [facility] [address] GLUCOSE,BLOOD- poct (STL) 169 mg/dL H Aug 20, 2024 05:06 AM [facility] GLUCOSE,BLOOD-poct (STL) Specimen Type: BLOOD Comment: Test Performed by: [id number] Meter #: [id number] Ordering Provider: SILVIA REDDY Report Released Date/Time: Aug 20, 2024 06:05 AM Reporting Lab: [facility] [address] Performing Lab: [facility] [address] GLUCOSE,BLOOD- poct (STL) 115 mg/dL H Aug 19, 2024 04:23 PM [facility] GLUCOSE,BLOOD-poct (STL) Specimen Type: BLOOD Comment: Test Performed by: [id number] Meter #: [id number] Ordering Provider: SILVIA REDDY Report Released Date/Time: Aug 19, 2024 05:54 PM Reporting Lab: [facility] [address] Performing Lab: [facility] [address] GLUCOSE,BLOOD- poct (STL) 137 mg/dL H Aug 19, 2024 11:28 AM [facility] GLUCOSE,BLOOD-poct (STL) Specimen Type: BLOOD Comment: Test Performed by: [id number] Meter #: [id number] Ordering Provider: SILVIA REDDY Report Released Date/Time: Aug 19, 2024 11:51 AM Reporting Lab: [facility] [address] Performing Lab: [facility] [address] GLUCOSE,BLOOD- poct (STL) 190 mg/dL H Aug 19, 2024 05:21 AM [facility] GLUCOSE,BLOOD-poct (STL) Specimen Type: BLOOD Comment: Test Performed by: [id number] Meter #: [id number] Ordering Provider: SILVIA REDDY Report Released Date/Time: Aug 19, 2024 05:56 AM Reporting Lab: [facility] [address] Performing Lab: [facility] [address] GLUCOSE,BLOOD- poct (STL) 130 mg/dL H Aug 18, 2024 04:49 PM [facility] GLUCOSE,BLOOD-poct (STL) Specimen Type: BLOOD Comment: Test Performed by: [id number] Meter #: [id number] Ordering Provider: SILVIA REDDY Report Released Date/Time: Aug 18, 2024 05:01 PM Reporting Lab: [facility] [address] Performing Lab: [facility] [address] GLUCOSE,BLOOD- poct (STL) 129 mg/dL H Aug 18, 2024 11:23 AM [facility] GLUCOSE,BLOOD-poct (STL) Specimen Type: BLOOD Comment: Test Performed by: [id number] Meter #: [id number] Ordering Provider: SILVIA REDDY Report Released Date/Time: Aug 18, 2024 11:41 AM Reporting Lab: [facility] [address] Performing Lab: [facility] [address] GLUCOSE,BLOOD- poct (STL) 180 mg/dL H Aug 18, 2024 05:08 AM [facility] GLUCOSE,BLOOD-poct (STL) Specimen Type: BLOOD Comment: Test Performed by: [id number] Meter #: [id number] Ordering Provider: SILVIA REDDY Report Released Date/Time: Aug 18, 2024 05:31 AM Reporting Lab: [facility] [place] [address] Performing Lab: [facility] [place] [address] GLUCOSE,BLOOD- poct (STL) 127 mg/dL H -Aug 17, 2024 07:32 PM [facility] GLUCOSE,BLOOD-poct (STL) Specimen Type: BLOOD Comment: Test Performed by: [id number] Meter #: [id number] Ordering Provider: SILVIA REDDY Report Released Date/Time: Aug 17, 2024 07:59 PM Reporting Lab: [facility] [place] [address] Performing Lab: [facility] [place] [address] GLUCOSE,BLOOD- poct (STL) 154 mg/dL H Aug 17, 2024 04:24 PM [facility] GLUCOSE,BLOOD-poct (STL) Specimen Type: BLOOD Comment: Test Performed by: [id number] Meter #: [id number] Ordering Provider: SILVIA REDDY Report Released Date/Time: Aug 17, 2024 04:35 PM Reporting Lab: [facility] [place] [address] Performing Lab: [facility] [place] [address] GLUCOSE,BLOOD- poct (STL) 178 mg/dL H -Aug 17, 2024 05:09 AM [facility] GLUCOSE,BLOOD-poct (STL) Specimen Type: BLOOD Comment: Test Performed by: [id number] Meter #: [id number] Ordering Provider: SILVIA REDDY Report Released Date/Time: Aug 17, 2024 05:54 AM Reporting Lab: [facility] [place] [address] Performing Lab: [facility] [address] GLUCOSE,BLOOD- poct (STL) 124 mg/dL H Aug 16, 2024 07:40 PM [facility] GLUCOSE,BLOOD-poct (STL) Specimen Type: BLOOD Comment: Test Performed by: [id number] Meter #: [id number] Ordering Provider: SILVIA REDDY Report Released Date/Time: Aug 16, 2024 08:28 PM Reporting Lab: [facility] [address] Performing Lab: [facility] [address] GLUCOSE,BLOOD- poct (STL) 144 mg/dL H Aug 16, 2024 04:19 PM [facility] GLUCOSE,BLOOD-poct (STL) Specimen Type: BLOOD Comment: Test Performed by: [id number] Meter #: [id number] Ordering Provider: SILVIA REDDY Report Released Date/Time: Aug 16, 2024 04:45 PM Reporting Lab: [facility] [address] Performing Lab: [facility] [address] GLUCOSE,BLOOD- poct (STL) 138 mg/dL H Aug 16, 2024 11:52 AM [facility] GLUCOSE,BLOOD-poct (STL) Specimen Type: BLOOD Comment: Test Performed by: [id number] Meter #: [id number] Ordering Provider: SILVIA REDDY Report Released Date/Time: Aug 16, 2024 12:04 PM Reporting Lab: [facility] [address] Performing Lab: [facility] [address] GLUCOSE,BLOOD- poct (STL) 135 mg/dL H Aug 16, 2024 05:24 AM [facility] GLUCOSE,BLOOD-poct (STL) Specimen Type: BLOOD Comment: Test Performed by: [id number] Meter #: [id number] Ordering Provider: SILVIA REDDY Report Released Date/Time: Aug 16, 2024 05:38 AM Reporting Lab: [facility] [address] Performing Lab: [facility] [address] GLUCOSE,BLOOD- poct (STL) 151 mg/dL H Aug 15, 2024 07:31 PM [facility] GLUCOSE,BLOOD-poct (STL) Specimen Type: BLOOD Comment: Test Performed by: [id number] Meter #: [id number] Ordering Provider: SILVIA REDDY Report Released Date/Time: Aug 15, 2024 08:07 PM Reporting Lab: [facility] [address] Performing Lab: [facility] [address] GLUCOSE,BLOOD- poct (STL) 173 mg/dL H Aug 15, 2024 04:18 PM [facility] GLUCOSE,BLOOD-poct (STL) Specimen Type: BLOOD Comment: Test Performed by: [id number] Meter #: [id number] Ordering Provider: SILVIA REDDY Report Released Date/Time: Aug 15, 2024 04:59 PM Reporting Lab: [facility] [address] Performing Lab: [facility] [address] GLUCOSE,BLOOD- poct (STL) 136 mg/dL H Aug 15, 2024 04:16 PM [facility] GLUCOSE,BLOOD-poct (STL) Specimen Type: BLOOD Comment: Test Performed by: [id number] Meter #: [id number] Ordering Provider: SILVIA REDDY Report Released Date/Time: Aug 15, 2024 04:59 PM Reporting Lab: [facility] [place] [address] Performing Lab: [facility] [address] GLUCOSE,BLOOD- poct (STL) 194 mg/dL H -Aug 15, 2024 11:39 AM [facility] GLUCOSE,BLOOD-poct (STL) Specimen Type: BLOOD Comment: Test Performed by: [id number] Meter #: [id number] Ordering Provider: SILVIA REDDY Report Released Date/Time: Aug 15, 2024 12:00 PM Reporting Lab: [facility] [address] Performing Lab: [facility] [place] [address] GLUCOSE,BLOOD- poct (STL) 127 mg/dL H -Aug 15, 2024 05:07 AM [facility] GLUCOSE,BLOOD-poct (STL) Specimen Type: BLOOD Comment: Test Performed by: [id number] Meter #: [id number] Ordering Provider: SILVIA REDDY Report Released Date/Time: Aug 15, 2024 06:14 AM Reporting Lab: [facility] [place] [address] Performing Lab: [facility] [place] [address] GLUCOSE,BLOOD- poct (STL) 151 mg/dL H -Aug 14, 2024 04:22 PM [facility] GLUCOSE,BLOOD-poct (STL) Specimen Type: BLOOD Comment: Test Performed by: [id number] Meter #: [id number] Ordering Provider: SILVIA REDDY Report Released Date/Time: Aug 14, 2024 04:52 PM Reporting Lab: [facility] [place] [address] Performing Lab: [facility] [address] GLUCOSE,BLOOD- poct (STL) 129 mg/dL H 72-99 Aug 14, 2024 11:21 AM [facility] GLUCOSE,BLOOD-poct (STL) Specimen Type: BLOOD Comment: Test Performed by: [id number] Meter #: [id number] Ordering Provider: SILVIA REDDY Report Released Date/Time: Aug 14, 2024 11:37 AM Reporting Lab: [facility] [address] Performing Lab: [facility] [address] GLUCOSE,BLOOD- poct (STL) 135 mg/dL H 72-Aug 14, 2024 06:59 AM [facility] QUANTIFERON-TB,4 TUBE Specimen Type: BLOOD [...] For additional information, please refer to [email or web address] [email or web address] [email or web address]/[email or web address] (This link is being provided for information/ educational purposes only.) Test Performed by [employer], [employer] [facility], [address] [place] [id number] Tommie Garcia M.D., Ph.D., Director of Laboratories , [facility] [id number] Ordering Provider: SILVIA REDDY Report Released Date/Time: Aug 11, 2024 03:58 PM Reporting Lab: [facility] [address] [facility] [address] Performing Lab: [facility] [address] [facility] [address] .NIL - QUANTIFERON 0.04 [IU]/mL .MITOGEN-NIL 0.39 [IU]/mL .QUANTIFERON INDETERMINATE NEGATIVE .TB1-NIL <0.00 [IU]/mL .TB2-NIL <0.00 [IU]/mL Aug 14, 2024 06:59 AM [facility] MAGNESIUM Specimen Type: PLASMA Comment: No hemolysis noted. Ordering Provider: SILVIA REDDY Report Released Date/Time: Aug 11, 2024 03:58 PM Reporting Lab: [facility] [address] Performing Lab: [facility] [address] MAGNESIUM 1.9 mg/dL 1.6-2.6 Aug 14, 2024 06:59 AM [facility] B12 Specimen Type: SERUM No comment entered. Ordering Provider: SILVIA REDDY Report Released Date/Time: Aug 11, 2024 03:58 PM Reporting Lab: [facility] [address] Performing Lab: [facility] [address] B12 757 pg/mL 213-816 Aug 14, 2024 06:59 AM [facility] FOLATE (STL-MA) Specimen Type: SERUM No comment entered. Ordering Provider: SILVIA REDDY Report Released Date/Time: Aug 11, 2024 03:58 PM Reporting Lab: [facility] [address] Performing Lab: [facility] [address] FOLATE (STL-MA) 6.8 ng/mL L 7-20 Aug 14, 2024 06:59 AM [facility] VITAMIN D, 25-HYDROXY Specimen Type: SERUM No comment entered. Ordering Provider: SILVIA REDDY Report Released Date/Time: Aug 11, 2024 03:58 PM Reporting Lab: [facility] [id number] Performing Lab: [facility] [id number] VITAMIN D, 25-HYDROXY 8.9 ng/mL L 30-96 Aug 14, 2024 06:59 AM [facility] CBC Specimen Type: BLOOD No comment entered. Ordering Provider: SILVIA REDDY Report Released Date/Time: Aug 11, 2024 03:58 PM Reporting Lab: [facility] [address] Performing Lab: [facility] [address] WBC 4.1 10*3/uL 3.6-11.2 RBC 3.20 10*6/uL [...] 10*3/uL 0.00-0.20 Aug 14, 2024 06:59 AM [facility] COMPREHENSIVE METABOLIC PANEL Specimen Type: PLASMA Comment: No hemolysis noted. Ordering Provider: SILVIA REDDY Report Released Date/Time: Aug 11, 2024 03:58 PM Reporting Lab: [facility] [address] Performing Lab: [facility] [address] CREATININE 0.75 mg/dL 0.70-1.30 UREA NITROGEN 13.6 [...] 95.88 >60 Aug 14, 2024 05:08 AM [facility] GLUCOSE,BLOOD-poct (STL) Specimen Type: BLOOD Comment: Test Performed by: [id number] Meter #: [id number] Ordering Provider: SILVIA REDDY Report Released Date/Time: Aug 14, 2024 05:52 AM Reporting Lab: [facility] [address] Performing Lab: [facility] [phone] GLUCOSE,BLOOD- poct (STL) 135 mg/dL H 72-99 Aug 13, 2024 04:27 PM [facility] GLUCOSE,BLOOD-poct (STL) Specimen Type: BLOOD Comment: Test Performed by: [id number] Meter #: [id number] Ordering Provider: SILVIA REDDY Report Released Date/Time: Aug 13, 2024 04:41 PM Reporting Lab: [facility] [phone] Performing Lab: [facility] [address] GLUCOSE,BLOOD- poct (STL) 181 mg/dL H -Aug 13, 2024 11:33 AM [facility] GLUCOSE,BLOOD-poct (STL) Specimen Type: BLOOD Comment: Test Performed by: [id number] Meter #: [id number] Ordering Provider: SILVIA REDDY Report Released Date/Time: Aug 13, 2024 03:55 PM Reporting Lab: [facility] [place] [address] Performing Lab: [facility] [place] [address] GLUCOSE,BLOOD- poct (STL) 140 mg/dL H Aug 13, 2024 05:54 AM [facility] GLUCOSE,BLOOD-poct (STL) Specimen Type: BLOOD Comment: Test Performed by: [id number] Meter #: [id number] Ordering Provider: SILVIA REDDY Report Released Date/Time: Aug 13, 2024 06:20 AM Reporting Lab: [facility] [place] [address] Performing Lab: [facility] [address] GLUCOSE,BLOOD- poct (STL) 112 mg/dL H Aug 12, 2024 04:35 PM [facility] GLUCOSE,BLOOD-poct (STL) Specimen Type: BLOOD Comment: Test Performed by: [id number] Meter #: [id number] Ordering Provider: SILVIA REDDY Report Released Date/Time: Aug 12, 2024 04:47 PM Reporting Lab: [facility] [address] Performing Lab: [facility] [address] GLUCOSE,BLOOD- poct (STL) 128 mg/dL H -Aug 12, 2024 11:26 AM [facility] GLUCOSE,BLOOD-poct (STL) Specimen Type: BLOOD Comment: Test Performed by: [id number] Meter #: [id number] Ordering Provider: SILVIA REDDY Report Released Date/Time: Aug 12, 2024 11:45 AM Reporting Lab: [facility] [address] Performing Lab: [facility] [place] [address] GLUCOSE,BLOOD- poct (STL) 188 mg/dL H Aug 12, 2024 06:13 AM [facility] GLUCOSE,BLOOD-poct (STL) Specimen Type: BLOOD Comment: Test Performed by: [id number] Meter #: [id number] Ordering Provider: SILVIA REDDY Report Released Date/Time: Aug 12, 2024 06:25 AM Reporting Lab: [facility] [address] Performing Lab: [facility] [address] GLUCOSE,BLOOD- poct (STL) 116 mg/dL H Aug 11, 2024 04:10 PM [facility] GLUCOSE,BLOOD-poct (STL) Specimen Type: BLOOD Comment: Test Performed by: [id number] Meter #: [id number] Ordering Provider: SILVIA REDDY Report Released Date/Time: Aug 11, 2024 04:27 PM Reporting Lab: [facility] [address] Performing Lab: [facility] [address] GLUCOSE,BLOOD- poct (STL) 184 mg/dL H 72-99 Aug 11, 2024 01:44 PM [facility] MRSA SURVL NARES DNA [...] Aug 11, 2024 02:03 PM Reporting Lab: [address] [address] Performing Lab: [address] [address] MRSA SURVL NARES DNA Negative Negative Jul 20, 2024 11:18 AM [facility] APTT Specimen Type: PLASMA No comment entered. Ordering Provider: MANUEL BAIRD Report Released Date/Time: Jul 19, 2024 04:00 PM Reporting Lab: [facility] [address] [place] [address] Performing Lab: [address] [address] APTT 32.1 s 26.7-39.9 Jul 20, 2024 11:18 AM [facility] PT/INR [facility] ([facility]) Specimen Type: PLASMA No comment entered. Ordering Provider: MANUEL BAIRD Report Released Date/Time: Jul 19, 2024 04:00 PM Reporting Lab: [address] [address] Performing Lab: [address] [address] PROTIME 14.4 s H 9.4-12.5 INR VALUE 1.3 {INR} Jul 20, 2024 11:18 AM [facility] CBC Specimen Type: BLOOD No comment entered. Ordering Provider: MANUEL BAIRD Report Released Date/Time: Jul 19, 2024 04:00 PM Reporting Lab: [facility] [address] [facility] [address] Performing Lab: [facility] [address] [facility] [address] WBC 4.7 10*3/uL 3.6-11.2 RBC 4.86 10*6/uL [...] 10*3/uL 0.00-0.20 IMMATURE PLT FRACTION 1.6 1.0-7.0 Social History: Smoking Status (Most current) and [...] AM QUIT TOBACCO >7 YEARS AGO [facility] Tobacco Use History This section includes [...] AM TOBACCO TERMINATION STAGE [facility] Advance Directives: All historical and current [...] DIRECTIVE DISCUSSION ERICK BARDALES [facility] Encounter Notes: All associated encounter notes This section contains the clinical notes associated to the Encounter. 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 Will resume next business day for 3-5x per week tx plan. /shen/ [employer] Signed: 08/16/2024 18:22 JOAN MENDEZ [facility]
--- OUTSIDE RECORDS SUMMARY | 2024-11-17 04:14 | XMS_ITS | Encounter Summary ---
Author Name [facility] [place] Organization [facility] [place] Address [address] [place] [address] Care Team Providers Care Tree Surgeon Name Role Phone MANUEL BAIRD Primary Care [...] PART A Apr 08, 2017 PART A [id number] [phone] ASHLEY WALKER PATIENT Selected Encounter This section includes the information on record at [place] for the Encounter. 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 This section includes future appointments and future orders which are active, pending or scheduled. Future Appointments This section includes appointments that were scheduled to occur 6 months from the date of the Encounter, up to a maximum of 20 appointments. The data comes from all [facility]. Appointment Date/Time Appointment Type Appointme nt Facility Name Aug 24, 2024 10:00 AM AMBULATORY - MEDICINE [facility] Aug 24, 2024 10:30 AM AMBULATORY - MEDICINE [facility] Aug 30, 2024 09:30 AM AMBULATORY MEDICINE [facility] Aug 31, 2024 01:00 PM AMBULATORY - SURGERY [facility] Sep 21, 2024 01:30 PM AMBULATORY MEDICINE [facility] Sep 22, 2024 11:00 AM AMBULATORY - MEDICINE [facility] Sep 29, 2024 12:30 PM AMBULATORY - MEDICINE [facility] Oct 02, 2024 09:30 AM AMBULATORY - MEDICINE [facility] Nov 20, 2024 10:30 AM AMBULATORY - SURGERY [facility] Nov 21, 2024 10:00 AM AMBULATORY - NONE [facility] Dec 11, 2024 [...] of theEncounter. The data comes from all [facility]. Test Date/Time Test Type Test Details Facility Name Aug 02, 2024 12:00 AM Laboratory - Chemistry Order CBC BLOOD STAT SP [facility] Aug 02, 2024 12:00 AM Laboratory - Chemistry Order COMPREHENSIVE METABOLIC PANEL GREEN LI/HEP BLD/PLAS PLASMA SP [facility] Aug 17, 2024 03:47 PM Consult Order [facility] Cons Bedside [facility] Lab Results: +/- 30 days of [...] Range Comment Aug 23, 2024 08:21 AM [facility] CBC Specimen Type: BLOOD No comment entered. Ordering Provider: SILVIA REDDY Report Released Date/Time: Aug 22, 2024 11:19 AM Reporting Lab: [facility] [address] [facility] [address] Performing Lab: [facility] [address] WBC 4.0 10*3/uL 3.6-11.2 RBC 3.65 10*6/uL [...] 10*3/uL 0.00-0.20 Aug 23, 2024 08:21 AM [facility] MAGNESIUM Specimen Type: PLASMA No comment entered. Ordering Provider: SILVIA REDDY Report Released Date/Time: Aug 22, 2024 11:26 AM Reporting Lab: [facility] [address] Performing Lab: [facility] [address] MAGNESIUM 1.8 mg/dL 1.6-2.6 Aug 23, 2024 05:12 AM [facility] GLUCOSE,BLOOD-poct (STL) Specimen Type: BLOOD Comment: Test Performed by: [id number] Meter #: [id number] Ordering Provider: SILVIA REDDY Report Released Date/Time: Aug 23, 2024 05:23 AM Reporting Lab: [facility] [address] Performing Lab: [facility] [address] GLUCOSE,BLOOD- poct (STL) 99 mg/dL 72-99 Aug 23, 2024 02:45 AM [facility] OCCULT BLOOD FIT X1 SCREEN Specimen Type: FECES No comment entered. Ordering Provider: SILVIA REDDY Report Released Date/Time: Aug 22, 2024 11:23 AM Reporting Lab: [facility] [address] [place] [address] Performing Lab: [address] [address] OCCULT BLOOD (FIT) #1 OF 1 Negative Negative Aug 22, 2024 07:30 PM [facility] OCCULT BLOOD FIT X1 SCREEN Specimen Type: FECES No comment entered. Ordering Provider: SILVIA REDDY Report Released Date/Time: Aug 22, 2024 11:23 AM Reporting Lab: [facility] [address] [facility] [address] Performing Lab: [address] [address] OCCULT BLOOD (FIT) #1 OF 1 Negative Negative Aug 22, 2024 06:15 PM [facility] OCCULT BLOOD FIT X1 SCREEN Specimen Type: FECES No comment entered. Ordering Provider: SILVIA REDDY Report Released Date/Time: Aug 22, 2024 11:23 AM Reporting Lab: [facility] [address] [place] [address] Performing Lab: [address] [address] OCCULT BLOOD (FIT) #1 OF 1 Negative Negative Aug 22, 2024 04:24 PM [facility] GLUCOSE,BLOOD-poct (STL) Specimen Type: BLOOD Comment: Test Performed by: [id number] Meter #: [id number] Ordering Provider: SILVIA REDDY Report Released Date/Time: Aug 22, 2024 04:36 PM Reporting Lab: [facility] [address] Performing Lab: [facility] [facility] [address] GLUCOSE,BLOOD- poct (STL) 176 mg/dL H 72-99 Aug 22, 2024 04:23 PM [facility] GLUCOSE,BLOOD-poct (STL) Specimen Type: BLOOD Comment: Test Performed by: [id number] Meter #: [id number] Ordering Provider: SILVIA REDDY Report Released Date/Time: Aug 22, 2024 04:36 PM Reporting Lab: [facility] [facility] [address] Performing Lab: [facility] [facility] [address] GLUCOSE,BLOOD- poct (STL) 221 mg/dL H 72-99 Aug 22, 2024 11:15 AM [facility] GLUCOSE,BLOOD-poct (STL) Specimen Type: BLOOD Comment: Test Performed by: [id number] Meter #: [id number] Ordering Provider: SILVIA REDDY Report Released Date/Time: Aug 22, 2024 11:27 AM Reporting Lab: [facility] [address] Performing Lab: [facility] [facility] [address] GLUCOSE,BLOOD- poct (STL) 140 mg/dL H 72-99 Aug 22, 2024 08:03 AM [facility] CBC Specimen Type: BLOOD No comment entered. Ordering Provider: SILVIA REDDY Report Released Date/Time: Aug 17, 2024 01:18 PM Reporting Lab: [facility] [facility] [address] Performing Lab: [facility] [facility] [address] WBC 3.5 10*3/uL L 3.6-11.2 RBC 3.23 [...] NRBC% 0 Aug 22, 2024 08:03 AM [facility] COMPREHENSIVE METABOLIC PANEL Specimen Type: PLASMA Comment: No hemolysis noted. Ordering Provider: SILVIA REDDY Report Released Date/Time: Aug 17, 2024 01:18 PM Reporting Lab: [facility] [address] [facility] [address] Performing Lab: [address] [address] CREATININE 0.80 mg/dL 0.7-1.3 UREA NITROGEN 9.7 [...] 94.0 >60 Aug 22, 2024 08:03 AM [facility] FERRITIN Specimen Type: SERUM No comment entered. Ordering Provider: JUDIT PERKINS Report Released Date/Time: Aug 18, 2024 11:01 AM Reporting Lab: [address] [address] Performing Lab: [address] [address] FERRITIN 79.50 ng/mL 22-275 Aug 22, 2024 08:03 AM [facility] IRON/TIBC PROFILE Specimen Type: SERUM No comment entered. Ordering Provider: JUDIT PERKINS Report Released Date/Time: Aug 18, 2024 11:01 AM Reporting Lab: [address] [address] Performing Lab: [address] [address] TIBC 283 ug/dL 250-450 TRANSFERRIN 226 mg/dL 163-344 IRON SATURATION 7 L 20-50 IRON 19 ug/dL L 65-175 Aug 22, 2024 08:03 AM [facility] B12 Specimen Type: SERUM No comment entered. Ordering Provider: JUDIT PERKINS Report Released Date/Time: Aug 18, 2024 11:01 AM Reporting Lab: [facility] [address] Performing Lab: [facility] [facility] [address] B12 631 pg/mL 213-816 Aug 22, 2024 05:03 AM [facility] GLUCOSE,BLOOD-poct (STL) Specimen Type: BLOOD Comment: Test Performed by: [id number] Meter #: [id number] Ordering Provider: SILVIA REDDY Report Released Date/Time: Aug 22, 2024 06:17 AM Reporting Lab: [facility] [facility] [address] Performing Lab: [facility] [address] [facility] [address] GLUCOSE,BLOOD- poct (STL) 170 mg/dL H 72-99 Aug 21, 2024 04:32 PM [facility] GLUCOSE,BLOOD-poct (STL) Specimen Type: BLOOD Comment: Test Performed by: [id number] Meter #: [id number] Ordering Provider: SILVIA REDDY Report Released Date/Time: Aug 21, 2024 04:49 PM Reporting Lab: [facility] [address] [facility] [address] Performing Lab: [facility] [facility] [address] GLUCOSE,BLOOD- poct (STL) 169 mg/dL H 72-99 Aug 21, 2024 11:53 AM [facility] GLUCOSE,BLOOD-poct (STL) Specimen Type: BLOOD Comment: Test Performed by: [id number] Meter #: [id number] Ordering Provider: SILVIA REDDY Report Released Date/Time: Aug 21, 2024 12:11 PM Reporting Lab: [facility] [facility] [address] Performing Lab: [facility] [facility] [address] GLUCOSE,BLOOD- poct (STL) 149 mg/dL H -Aug 21, 2024 05:10 AM [facility] GLUCOSE,BLOOD-poct (STL) Specimen Type: BLOOD Comment: Test Performed by: [id number] Meter #: [id number] Ordering Provider: SILVIA REDDY Report Released Date/Time: Aug 21, 2024 05:27 AM Reporting Lab: [facility] [facility] [address] Performing Lab: [facility] [address] [facility] [address] GLUCOSE,BLOOD- poct (STL) 118 mg/dL H -Aug 20, 2024 04:38 PM [facility] GLUCOSE,BLOOD-poct (STL) Specimen Type: BLOOD Comment: Test Performed by: [id number] Meter #: [id number] Ordering Provider: SILVIA REDDY Report Released Date/Time: Aug 21, 2024 01:55 AM Reporting Lab: [facility] [facility] [address] Performing Lab: [facility] [address] [facility] [address] GLUCOSE,BLOOD- poct (STL) 169 mg/dL H -Aug 20, 2024 04:36 PM [facility] GLUCOSE,BLOOD-poct (STL) Specimen Type: BLOOD Comment: Test Performed by: [id number] Meter #: [id number] Ordering Provider: SILVIA REDDY Report Released Date/Time: Aug 21, 2024 01:55 AM Reporting Lab: [facility] [facility] [address] Performing Lab: [facility] [address] [facility] [address] GLUCOSE,BLOOD- poct (STL) 395 mg/dL H -Aug 20, 2024 11:45 AM [facility] GLUCOSE,BLOOD-poct (STL) Specimen Type: BLOOD Comment: Test Performed by: [id number] Meter #: [id number] Ordering Provider: SILVIA REDDY Report Released Date/Time: Aug 20, 2024 11:56 AM Reporting Lab: [facility] [facility] [address] Performing Lab: [facility] [address] GLUCOSE,BLOOD- poct (STL) 169 mg/dL H 72-Aug 20, 2024 05:06 AM [facility] GLUCOSE,BLOOD-poct (STL) Specimen Type: BLOOD Comment: Test Performed by: [id number] Meter #: [id number] Ordering Provider: SILVIA REDDY Report Released Date/Time: Aug 20, 2024 06:05 AM Reporting Lab: [facility] [facility] [address] Performing Lab: [facility] [address] [facility] [address] GLUCOSE,BLOOD- poct (STL) 115 mg/dL H -Aug 19, 2024 04:23 PM [facility] GLUCOSE,BLOOD-poct (STL) Specimen Type: BLOOD Comment: Test Performed by: [id number] Meter #: [id number] Ordering Provider: SILVIA REDDY Report Released Date/Time: Aug 19, 2024 05:54 PM Reporting Lab: [facility] [facility] [address] Performing Lab: [facility] [facility] [address] GLUCOSE,BLOOD- poct (STL) 137 mg/dL H 72-Aug 19, 2024 11:28 AM [facility] GLUCOSE,BLOOD-poct (STL) Specimen Type: BLOOD Comment: Test Performed by: [id number] Meter #: [id number] Ordering Provider: SILVIA REDDY Report Released Date/Time: Aug 19, 2024 11:51 AM Reporting Lab: [facility] [facility] [address] Performing Lab: [facility] [facility] [address] GLUCOSE,BLOOD- poct (STL) 190 mg/dL H 72-99 Aug 19, 2024 05:21 AM [facility] GLUCOSE,BLOOD-poct (STL) Specimen Type: BLOOD Comment: Test Performed by: [id number] Meter #: [id number] Ordering Provider: SILVIA REDDY Report Released Date/Time: Aug 19, 2024 05:56 AM Reporting Lab: [facility] [facility] [address] Performing Lab: [facility] [address] GLUCOSE,BLOOD- poct (STL) 130 mg/dL H 72-99 Aug 18, 2024 04:49 PM [facility] GLUCOSE,BLOOD-poct (STL) Specimen Type: BLOOD Comment: Test Performed by: [id number] Meter #: [id number] Ordering Provider: SILVIA REDDY Report Released Date/Time: Aug 18, 2024 05:01 PM Reporting Lab: [facility] [facility] [address] Performing Lab: [facility] [facility] [address] GLUCOSE,BLOOD- poct (STL) 129 mg/dL H 72-99 Aug 18, 2024 11:23 AM [facility] GLUCOSE,BLOOD-poct (STL) Specimen Type: BLOOD Comment: Test Performed by: [id number] Meter #: [id number] Ordering Provider: SILVIA REDDY Report Released Date/Time: Aug 18, 2024 11:41 AM Reporting Lab: [facility] [facility] [address] Performing Lab: [facility] [address] GLUCOSE,BLOOD- poct (STL) 180 mg/dL H Aug 18, 2024 05:08 AM [facility] GLUCOSE,BLOOD-poct (STL) Specimen Type: BLOOD Comment: Test Performed by: [id number] Meter #: [id number] Ordering Provider: SILVIA REDDY Report Released Date/Time: Aug 18, 2024 05:31 AM Reporting Lab: [facility] [address] Performing Lab: [facility] [facility] [address] GLUCOSE,BLOOD- poct (STL) 127 mg/dL H Aug 17, 2024 07:32 PM [facility] GLUCOSE,BLOOD-poct (STL) Specimen Type: BLOOD Comment: Test Performed by: [id number] Meter #: [id number] Ordering Provider: SILVIA REDDY Report Released Date/Time: Aug 17, 2024 07:59 PM Reporting Lab: [facility] [address] Performing Lab: [facility] [facility] [address] GLUCOSE,BLOOD- poct (STL) 154 mg/dL H Aug 17, 2024 04:24 PM [facility] GLUCOSE,BLOOD-poct (STL) Specimen Type: BLOOD Comment: Test Performed by: [id number] Meter #: [id number] Ordering Provider: SILVIA REDDY Report Released Date/Time: Aug 17, 2024 04:35 PM Reporting Lab: [facility] [address] Performing Lab: [facility] [address] GLUCOSE,BLOOD- poct (STL) 178 mg/dL H Aug 17, 2024 05:09 AM [facility] GLUCOSE,BLOOD-poct (STL) Specimen Type: BLOOD Comment: Test Performed by: [id number] Meter #: [id number] Ordering Provider: SILVIA REDDY Report Released Date/Time: Aug 17, 2024 05:54 AM Reporting Lab: [facility] [address] Performing Lab: [facility] [address] GLUCOSE,BLOOD- poct (STL) 124 mg/dL H -Aug 16, 2024 07:40 PM [facility] GLUCOSE,BLOOD-poct (STL) Specimen Type: BLOOD Comment: Test Performed by: [id number] Meter #: [id number] Ordering Provider: SILVIA REDDY Report Released Date/Time: Aug 16, 2024 08:28 PM Reporting Lab: [facility] [address] Performing Lab: [facility] [address] GLUCOSE,BLOOD- poct (STL) 144 mg/dL H -Aug 16, 2024 04:19 PM [facility] GLUCOSE,BLOOD-poct (STL) Specimen Type: BLOOD Comment: Test Performed by: [id number] Meter #: [id number] Ordering Provider: SILVIA REDDY Report Released Date/Time: Aug 16, 2024 04:45 PM Reporting Lab: [facility] [address] Performing Lab: [facility] [address] GLUCOSE,BLOOD- poct (STL) 138 mg/dL H -Aug 16, 2024 11:52 AM [facility] GLUCOSE,BLOOD-poct (STL) Specimen Type: BLOOD Comment: Test Performed by: [id number] Meter #: [id number] Ordering Provider: SILVIA REDDY Report Released Date/Time: Aug 16, 2024 12:04 PM Reporting Lab: [facility] [address] Performing Lab: [facility] [address] GLUCOSE,BLOOD- poct (STL) 135 mg/dL H 72-Aug 16, 2024 05:24 AM [facility] GLUCOSE,BLOOD-poct (STL) Specimen Type: BLOOD Comment: Test Performed by: [id number] Meter #: [id number] Ordering Provider: SILVIA REDDY Report Released Date/Time: Aug 16, 2024 05:38 AM Reporting Lab: [facility] [address] Performing Lab: [facility] [address] GLUCOSE,BLOOD- poct (STL) 151 mg/dL H -Aug 15, 2024 07:31 PM [facility] GLUCOSE,BLOOD-poct (STL) Specimen Type: BLOOD Comment: Test Performed by: [id number] Meter #: [id number] Ordering Provider: SILVIA REDDY Report Released Date/Time: Aug 15, 2024 08:07 PM Reporting Lab: [facility] [address] Performing Lab: [facility] [address] GLUCOSE,BLOOD- poct (STL) 173 mg/dL H 72-99 Aug 15, 2024 04:18 PM [facility] GLUCOSE,BLOOD-poct (STL) Specimen Type: BLOOD Comment: Test Performed by: [id number] Meter #: [id number] Ordering Provider: SILVIA REDDY Report Released Date/Time: Aug 15, 2024 04:59 PM Reporting Lab: [facility] [address] Performing Lab: [facility] [address] GLUCOSE,BLOOD- poct (STL) 136 mg/dL H -Aug 15, 2024 04:16 PM [facility] GLUCOSE,BLOOD-poct (STL) Specimen Type: BLOOD Comment: Test Performed by: [id number] Meter #: [id number] Ordering Provider: SILVIA REDDY Report Released Date/Time: Aug 15, 2024 04:59 PM Reporting Lab: [facility] [address] Performing Lab: [facility] [address] GLUCOSE,BLOOD- poct (STL) 194 mg/dL H Aug 15, 2024 11:39 AM [facility] GLUCOSE,BLOOD-poct (STL) Specimen Type: BLOOD Comment: Test Performed by: [id number] Meter #: [id number] Ordering Provider: SILVIA REDDY Report Released Date/Time: Aug 15, 2024 12:00 PM Reporting Lab: [facility] [address] Performing Lab: [facility] [address] GLUCOSE,BLOOD- poct (STL) 127 mg/dL H Aug 15, 2024 05:07 AM [facility] GLUCOSE,BLOOD-poct (STL) Specimen Type: BLOOD Comment: Test Performed by: [id number] Meter #: [id number] Ordering Provider: SILVIA REDDY Report Released Date/Time: Aug 15, 2024 06:14 AM Reporting Lab: [facility] [address] Performing Lab: [facility] [address] GLUCOSE,BLOOD- poct (STL) 151 mg/dL H Aug 14, 2024 04:22 PM [facility] GLUCOSE,BLOOD-poct (STL) Specimen Type: BLOOD Comment: Test Performed by: [id number] Meter #: [id number] Ordering Provider: SILVIA REDDY Report Released Date/Time: Aug 14, 2024 04:52 PM Reporting Lab: [facility] [address] Performing Lab: [facility] [address] GLUCOSE,BLOOD- poct (STL) 129 mg/dL H 72-99 Aug 14, 2024 11:21 AM [facility] GLUCOSE,BLOOD-poct (STL) Specimen Type: BLOOD Comment: Test Performed by: [id number] Meter #: [id number] Ordering Provider: SILVIA REDDY Report Released Date/Time: Aug 14, 2024 11:37 AM Reporting Lab: [facility] [address] Performing Lab: [facility] [address] GLUCOSE,BLOOD- poct (STL) 135 mg/dL H 72-99 Aug 14, 2024 06:59 AM [facility] QUANTIFERON-TB,4 TUBE Specimen Type: [...] For additional information, please refer to [email or web address]. [employer]. [employer]/faq/LPD830 (This link is being provided for information/ educational purposes only.) Test Performed by [employer] [employer], [address] [place], [place] Tommie Garcia M.D., Ph.D., Director of Laboratories , [facility] [id number] Ordering Provider: SILVIA REDDY Report Released Date/Time: Aug 11, 2024 03:58 PM Reporting Lab: [facility] [address] [place] [address] Performing Lab: [facility] [address] [facility] .NIL - QUANTIFERON 0.04 [IU]/mL .MITOGEN-NIL 0.39 [IU]/mL .QUANTIFERON INDETERMINATE NEGATIVE .TB1-NIL <0.00 [IU]/mL .TB2-NIL <0.00 [IU]/mL Aug 14, 2024 06:59 AM [facility] MAGNESIUM Specimen Type: PLASMA Comment: No hemolysis noted. Ordering Provider: SILVIA REDDY Report Released Date/Time: Aug 11, 2024 03:58 PM Reporting Lab: [facility] [address] Performing Lab: [facility] [address] MAGNESIUM 1.9 mg/dL 1.6-2.6 Aug 14, 2024 06:59 AM [facility] VITAMIN D, 25-HYDROXY Specimen Type: SERUM No comment entered. Ordering Provider: SILVIA REDDY Report Released Date/Time: Aug 11, 2024 03:58 PM Reporting Lab: [facility] [id number] Performing Lab: [facility] [phone] VITAMIN D, 25-HYDROXY 8.9 ng/mL L 30-96 Aug 14, 2024 06:59 AM [facility]OLATE ([facility]) Specimen Type: SERUM No comment entered. Ordering Provider: SILVIA REDDY Report Released Date/Time: Aug 11, 2024 03:58 PM Reporting Lab: [facility] [place] [phone] Performing Lab: [facility] [id number] FOLATE ([facility]) 6.8 ng/mL L 7-20 Aug 14, 2024 06:59 AM [facility] B12 Specimen Type: SERUM No comment entered. Ordering Provider: SILVIA REDDY Report Released Date/Time: Aug 11, 2024 03:58 PM Reporting Lab: [facility] [place] [id number] Performing Lab: [facility] [place] [phone] B12 757 pg/mL 213-816 Aug 14, 2024 06:59 AM [facility] COMPREHENSIVE METABOLIC PANEL Specimen Type: PLASMA Comment: No hemolysis noted. Ordering Provider: SILVIA REDDY Report Released Date/Time: Aug 11, 2024 03:58 PM Reporting Lab: [facility] [place] [id number] Performing Lab: [facility] [place] [phone] CREATININE 0.75 mg/dL 0.70-1.30 UREA NITROGEN 13.6 [...] 95.88 >60 Aug 14, 2024 06:59 AM [facility] CBC Specimen Type: BLOOD No comment entered. Ordering Provider: SILVIA REDDY Report Released Date/Time: Aug 11, 2024 03:58 PM Reporting Lab: [facility] [facility] [address] Performing Lab: [facility] #[address] [facility] [phone] WBC 4.1 10*3/uL 3.6-11.2 RBC 3.20 10*6/uL [...] 10*3/uL 0.00-0.20 Aug 14, 2024 05:08 AM [facility] GLUCOSE,BLOOD-poct (STL) Specimen Type: BLOOD Comment: Test Performed by: [id number] Meter #: [id number] Ordering Provider: SILVIA REDDY Report Released Date/Time: Aug 14, 2024 05:52 AM Reporting Lab: [facility] [address] Performing Lab: [facility] #[address] [facility] [address] GLUCOSE,BLOOD- poct (STL) 135 mg/dL H -Aug 13, 2024 04:27 PM [facility] GLUCOSE,BLOOD-poct (STL) Specimen Type: BLOOD Comment: Test Performed by: [id number] Meter #: [id number] Ordering Provider: SILVIA REDDY Report Released Date/Time: Aug 13, 2024 04:41 PM Reporting Lab: [facility] #[address] [facility] [phone] Performing Lab: [facility] [facility] [address] GLUCOSE,BLOOD- poct (STL) 181 mg/dL H Aug 13, 2024 11:33 AM [facility] GLUCOSE,BLOOD-poct (STL) Specimen Type: BLOOD Comment: Test Performed by: [id number] Meter #: [id number] Ordering Provider: SILVIA REDDY Report Released Date/Time: Aug 13, 2024 03:55 PM Reporting Lab: [facility] [address] Performing Lab: [facility] #1 [facility] [address] GLUCOSE,BLOOD- poct (STL) 140 mg/dL H Aug 13, 2024 05:54 AM [facility] GLUCOSE,BLOOD-poct (STL) Specimen Type: BLOOD Comment: Test Performed by: [id number] Meter #: [id number] Ordering Provider: SILVIA REDDY Report Released Date/Time: Aug 13, 2024 06:20 AM Reporting Lab: [facility] [facility] [address] Performing Lab: [facility] #[facility] [address] GLUCOSE,BLOOD- poct (STL) 112 mg/dL H -Aug 12, 2024 04:35 PM [facility] GLUCOSE,BLOOD-poct (STL) Specimen Type: BLOOD Comment: Test Performed by: [id number] Meter #: [id number] Ordering Provider: SILVIA REDDY Report Released Date/Time: Aug 12, 2024 04:47 PM Reporting Lab: [facility] [facility] [address] Performing Lab: [facility] [facility] [address] GLUCOSE,BLOOD- poct (STL) 128 mg/dL H -Aug 12, 2024 11:26 AM [facility] GLUCOSE,BLOOD-poct (STL) Specimen Type: BLOOD Comment: Test Performed by: [id number] Meter #: [id number] Ordering Provider: SILVIA REDDY Report Released Date/Time: Aug 12, 2024 11:45 AM Reporting Lab: [facility] [address] Performing Lab: [facility] #[address] [facility] [address] GLUCOSE,BLOOD- poct (STL) 188 mg/dL H -Aug 12, 2024 06:13 AM [facility] GLUCOSE,BLOOD-poct (STL) Specimen Type: BLOOD Comment: Test Performed by: [id number] Meter #: [id number] Ordering Provider: SILVIA REDDY Report Released Date/Time: Aug 12, 2024 06:25 AM Reporting Lab: [facility] #[address] [facility] [address] Performing Lab: [facility] #[address] [facility] [address] GLUCOSE,BLOOD- poct (STL) 116 mg/dL H -Aug 11, 2024 04:10 PM [facility] GLUCOSE,BLOOD-poct (STL) Specimen Type: BLOOD Comment: Test Performed by: [id number] Meter #: [id number] Ordering Provider: SILVIA REDDY Report Released Date/Time: Aug 11, 2024 04:27 PM Reporting Lab: [facility] [facility] [address] Performing Lab: [facility] #[address] [facility] [address] GLUCOSE,BLOOD- poct (STL) 184 mg/dL H 72-99 Aug 11, 2024 01:44 PM [facility] MRSA SURVL NARES DNA Specimen Type: [...] Aug 11, 2024 02:03 PM Reporting Lab: [facility] [address] [place] [phone] Performing Lab: [address] [address] MRSA SURVL NARES DNA Negative Negative Jul 20, 2024 11:[address] [facility] APTT Specimen Type: PLASMA No comment entered. Ordering Provider: MANUEL BAIRD Report Released Date/Time: Jul 19, 2024 04:00 PM Reporting Lab: [facility] [address] [place] [phone] Performing Lab: [address] [address] APTT 32.1 s 26.7-39.9 Jul 20, 2024 11:[address] [facility] PT/INR NEW (STL-MA) Specimen Type: PLASMA No comment entered. Ordering Provider: MANUEL BAIRD Report Released Date/Time: Jul 19, 2024 04:00 PM Reporting Lab: [facility] [address] [facility] [address] Performing Lab: [facility] [address] [facility] [address] PROTIME 14.4 s H 9.4-12.5 INR VALUE 1.3 {INR} Jul 20, 2024 11:[address] [facility] CBC Specimen Type: BLOOD No comment entered. Ordering Provider: MANUEL BAIRD Report Released Date/Time: Jul 19, 2024 04:00 PM Reporting Lab: [facility] [address] [facility] [address] Performing Lab: [facility] [address] [facility] [address] WBC 4.7 10*3/uL 3.6-11.2 RBC 4.86 10*6/uL [...] Height Weight Body Mass Index Source Aug 17, 2024 11:06 PM 4 [facility] Aug 17, 2024 10:01 PM 7 [facility] Aug 17, 2024 09:56 PM 0 [facility] Aug 17, 2024 08:06 PM 97.1 78 110/67 18 95 0 [facility] Aug 17, 2024 11:29 AM 126/80 [facility] Advance Directives: All historical [...] DIRECTIVE DISCUSSION ERICK BARDALES [facility] Encounter Notes: All associated encounter notes This section contains the clinical notes associated to the Encounter. Date/Time Encounter Note(s) Provider Source Aug 17, 2024 08:32 AM PHYSICAL MEDICINE REHAB NOTE: LOCAL TITLE: PT DAILY STL STANDARD TITLE: PHYSICAL MEDICINE REHAB NOTE DATE OF NOTE: AUG 17, 2024@08:32 ENTRY DATE: AUG 17, 2024@08:32:24 AUTHOR: GERRY CONRAD COSIGNER: URGENCY: STATUS: COMPLETED PHYSICAL THERAPY: daily TX note TIME: 1100 TOTAL TREATMENT TIME: 30 minutes BILLING: gait x 1, ther-ex x 1 Visit #:4 Missed:0 Eval Date: 08/14/2024 Progress Note Due: [...] status: Full History of Presenting Illness (per [facility] H&P note dated 08/11/24): 74 y.o. [...] and subtotal occlusion of RCA), transferred to [facility] and underwent CABG x3 on07/24. [...] referred for further PT and OT at [facility]. Interval history Patient is seen post [...] at home. PMH: 1) Asthma (SNOMED CT 732364650) 2) Gastro-esophageal reflux disease (SNOMED CT 214169094) 3) Peptic Ulcer Disease * (ICD-9-CM 533.90) 4) Hypertension (SNOMED CT 29585428) 5) Neoplasm of pituitary gland (SNOMED CT 881368826) 6) Hyperlipidemia (SNOMED CT 91018630) 7) Erectile dysfunction associated with type 2 [...] 21) Obstructive Sleep Apnea of Adult (SCT 7060574061355) Equipment Owned: Manuel Zelaya S: Vet up on bed in room, agreeable to PT TX. Pain: None throughout --Patient goal(s): Pt reports to walk Learning preferences: [x] Verbal, [x] Visual/Demonstration, [] Written O: Vet stands from bed and advances to gait to WC without device, close SPV/CGA provided due to quick/impulsive movements and balance concerns. GAIT TRAIN: - F22 used 150' x 2 bouts. Vet practices folding F22 to mobilize through narrow spaces to simulate home environment. Overall fair to good balance noted, no concerns with task. -Cane 50' x 2 bouts with SPV. Vet demonstrates fair balance, increased postural sway noted but no significant LOB. Recommend cont. practice and vet is receptive. - Gait train without device in // bars as back up . Vet completes 40' with SPV, Vet does have increased postural sway/instability and has 2 LOB noted with stepping strategy to correct. -Stairs with single rail and cane, does have LOB stepping off last step due to poor foot clearance and has LOB. Vet has stepping response but CGA provided for safety due to fall concerns. TRANSFER TRAIN: -Improved sit<>Stand and pivot xfers noted this date. Practiced from WC, mat table, nustep and standard chair. Vet able to complete without LOB backward. NUSTEP: -Program 3 (hills) L4 x 10 minutes using BLEs for endurance training, 70 steps per minute. Discussed PT goals, safety concerns (fall precautions/risks and sternal precautions), cont. therapy focus and target DC date. Vet is receptive and shows understanding. Vet in agreement to aim for DC Wednesday. Vet handed off to OT after session. Inpatient Rehab Facility Patient Assessment Instrument (IRF-JERO): [...] 6 Sit to stand: 4 6 6 Chair/isi-nw-uvttv transf: 4 6 6 Toilet transfer: Car [...] EDUCATION Comprehensive TREATMENT/EDUCATION provided during this stay: Milton verbalized understanding of education/instructions. Somewhat resistive at times given 1:1 instruction on: 's goals PT [...] Vet tolerates session well, target RPE met 3/10. Vet showing good carryover from previous sessions, improving duration and [...] B HR and Min A - MET FDC GOALS (2 weeks): -Vet will be INDEP [...] /es/ GERRY CONRAD PT, DPT, CBIS Signed: 08/17/2024 11:50 GERRY CONRAD [place] [facility]
--- OUTSIDE RECORDS SUMMARY | 2024-11-17 04:14 | XMS_ITS ---
Author Name [facility] [place] [facility] [place] Address [address] [place] [address] Care Team Providers Care Signal Operator Name Role Phone MANUEL BAIRD Primary [...] PART A Apr 08, 2017 PART A [id number] ASHLEY WALKER PATIENT Selected Encounter This section includes the information on record at [place] for the Encounter. Date/Time Encounter Type Encounter Description Reason Provider Source Aug 16, 2024 01:00 PM [facility] RECREATION THERAPY SERVICE ICD-10-CM I25.810 Atherosclerosis of CABG w/o angina pectoris KAYLIE ALTAMIRANO Encounter Template Text not used by [place] Assessments - Encounter Diagnoses This section includes the primary and secondary diagnoses documented for the Encounter. Date/Time Primary/Secondary Diagnosis Diagnosis Name Provider Source Aug 16, 2024 03:28 PM PRIMARY Atherosclerosis of CABG w/o angina pectoris KAYLIE ALTAMIRANO [facility] Plan of Treatment: Future Appointments (+ 6 months) and Future Tests (+/- 45 days) The Plan of Treatment section includes future care activities for the patient from all [place] [facility] This section includes future appointments and future orders which are active, pending or scheduled. Future Appointments This section includes appointments that were scheduled to occur 6 months from the date of the Encounter, up to a maximum of 20 appointments. The data comes from all [facility]. Appointment Date/Time Appointment Type Appointme nt Facility Name Aug 24, 2024 10:00 AM AMBULATORY - MEDICINE [facility] Aug 24, 2024 10:30 AM AMBULATORY - MEDICINE [facility] Aug 30, 2024 09:30 AM AMBULATORY MEDICINE [facility] Aug 31, 2024 01:00 PM AMBULATORY - SURGERY [facility] Sep 21, 2024 01:30 PM AMBULATORY - MEDICINE [facility] Sep 22, 2024 11:00 AM AMBULATORY - MEDICINE [facility] Sep 29, 2024 12:30 PM AMBULATORY - MEDICINE [facility] Oct 02, 2024 09:30 AM AMBULATORY - MEDICINE [facility] Nov 20, 2024 10:30 AM AMBULATORY - SURGERY [facility] Nov 21, 2024 10:00 AM AMBULATORY - NONE [facility] Dec 11, 2024 10:30 AM AMBULATORY - MEDICINE [facility] Active, Pending, and Scheduled Orders This section includes a listing of several types of active, pending, and scheduled orders, including clinic medications orders, diagnostic test orders, procedure orders and consult orders; where thestart date of the order is 45 days before the date of the Encounter or 45 days after the date of the Encounter. The data comes from all [facility]. Test Date/Time Test Type Test Details Facility Name Aug 02, 2024 12:00 AM Laboratory - Chemistry Order COMPREHENSIVE METABOLIC PANEL GREEN LI/HEP BLD/PLAS PLASMA SP [facility] Aug 02, 2024 12:00 AM Laboratory - Chemistry Order CBC BLOOD STAT SP [facility] Aug 17, 2024 03:47 PM Consult Order [facility] Cons Bedside [facility] [...] Range Comment Aug 23, 2024 08:21 AM [facility] MAGNESIUM Specimen Type: PLASMA No comment entered. Ordering Provider: SILVIA REDDY Report Released Date/Time: Aug 22, 2024 11:26 AM Reporting Lab: [facility] [address] [address] Performing Lab: [facility] [address] MAGNESIUM 1.8 mg/dL 1.6-2.6 Aug 23, 2024 08:21 AM [facility] CBC Specimen Type: BLOOD No comment entered. Ordering Provider: SILVIA REDDY Report Released Date/Time: Aug 22, 2024 11:19 AM Reporting Lab: [facility] [address] Performing Lab: [facility] [address] WBC 4.0 10*3/uL 3.6-11.2 RBC 3.65 10*6/uL [...] 10*3/uL 0.00-0.20 Aug 23, 2024 05:12 AM [facility] GLUCOSE,BLOOD-poct (STL) Specimen Type: BLOOD Comment: Test Performed by: [id number] Meter #: [id number] Ordering Provider: SILVIA REDDY Report Released Date/Time: Aug 23, 2024 05:23 AM Reporting Lab: [facility] [address] Performing Lab: [facility] [address] GLUCOSE,BLOOD- poct (STL) 99 mg/dL 72-99 Aug 23, 2024 02:45 AM [facility] OCCULT BLOOD FIT X1 SCREEN Specimen Type: FECES No comment entered. Ordering Provider: SILVIA REDDY Report Released Date/Time: Aug 22, 2024 11:23 AM Reporting Lab: [address] [address] Performing Lab: [address] [address] OCCULT BLOOD (FIT) #1 OF 1 Negative Negative Aug 22, 2024 07:30 PM [facility] OCCULT BLOOD FIT X1 SCREEN Specimen Type: FECES No comment entered. Ordering Provider: SILVIA REDDY Report Released Date/Time: Aug 22, 2024 11:23 AM Reporting Lab: [address] [address] Performing Lab: [address] [address] OCCULT BLOOD (FIT) #1 OF 1 Negative Negative Aug 22, 2024 06:15 PM [facility] OCCULT BLOOD FIT X1 SCREEN Specimen Type: FECES No comment entered. Ordering Provider: SILVIA REDDY Report Released Date/Time: Aug 22, 2024 11:23 AM Reporting Lab: [facility] [address] [place] [address] Performing Lab: [address] [address] OCCULT BLOOD (FIT) #1 OF 1 Negative Negative Aug 22, 2024 04:24 PM [facility] GLUCOSE,BLOOD-poct (STL) Specimen Type: BLOOD Comment: Test Performed by: [id number] Meter #: [id number] Ordering Provider: SILVIA REDDY Report Released Date/Time: Aug 22, 2024 04:36 PM Reporting Lab: [facility] [address] Performing Lab: [facility] [address] [address] GLUCOSE,BLOOD- poct (STL) 176 mg/dL H 72-99 Aug 22, 2024 04:23 PM [facility] GLUCOSE,BLOOD-poct (STL) Specimen Type: BLOOD Comment: Test Performed by: [id number] Meter #: [id number] Ordering Provider: SILVIA REDDY Report Released Date/Time: Aug 22, 2024 04:36 PM Reporting Lab: [facility] [address] Performing Lab: [facility] [address] [address] GLUCOSE,BLOOD- poct (STL) 221 mg/dL H 72-99 Aug 22, 2024 11:15 AM [facility] GLUCOSE,BLOOD-poct (STL) Specimen Type: BLOOD Comment: Test Performed by: [id number] Meter #: [id number] Ordering Provider: SILVIA REDDY Report Released Date/Time: Aug 22, 2024 11:27 AM Reporting Lab: [facility] [address] Performing Lab: [facility] [address] [address] GLUCOSE,BLOOD- poct (STL) 140 mg/dL H 72-99 Aug 22, 2024 08:03 AM [facility] FERRITIN Specimen Type: SERUM No comment entered. Ordering Provider: JUDIT PERKINS Report Released Date/Time: Aug 18, 2024 11:01 AM Reporting Lab: [facility] [address] [facility] [address] Performing Lab: [address] [address] FERRITIN 79.50 ng/mL 22-275 Aug 22, 2024 08:03 AM [facility] IRON/TIBC PROFILE Specimen Type: SERUM No comment entered. Ordering Provider: JUDIT PERKINS Report Released Date/Time: Aug 18, 2024 11:01 AM Reporting Lab: [facility] [address] [facility] [address] Performing Lab: [place] [id number] [facility] [address] TIBC 283 ug/dL 250-450 TRANSFERRIN 226 mg/dL 163-344 IRON SATURATION 7 L 20-50 IRON 19 ug/dL L 65-175 Aug 22, 2024 08:03 AM [facility] B12 Specimen Type: SERUM No comment entered. Ordering Provider: JUDIT PERKINS Report Released Date/Time: Aug 18, 2024 11:01 AM Reporting Lab: [facility] [address] [address] Performing Lab: [facility] [address] [address] B12 631 pg/mL 213-816 Aug 22, 2024 08:03 AM [facility] COMPREHENSIVE METABOLIC PANEL Specimen Type: PLASMA Comment: No hemolysis noted. Ordering Provider: SILVIA REDDY Report Released Date/Time: Aug 17, 2024 01:18 PM Reporting Lab: [facility] [address] [place] [address] Performing Lab: [facility] [address] [facility] [address] CREATININE 0.80 mg/dL 0.7-1.3 UREA NITROGEN 9.7 [...] 94.0 >60 Aug 22, 2024 08:03 AM [facility] CBC Specimen Type: BLOOD No comment entered. Ordering Provider: SILVIA REDDY Report Released Date/Time: Aug 17, 2024 01:18 PM Reporting Lab: [facility] [address] [address] Performing Lab: [facility] [address] [address] WBC 3.5 10*3/uL L 3.6-11.2 RBC 3.23 [...] NRBC% 0 Aug 22, 2024 05:03 AM [facility] GLUCOSE,BLOOD-poct (STL) Specimen Type: BLOOD Comment: Test Performed by: [id number] Meter #: [id number] Ordering Provider: SILVIA REDDY Report Released Date/Time: Aug 22, 2024 06:17 AM Reporting Lab: [facility] [address] [place] [address] Performing Lab: [facility] [place] [address] GLUCOSE,BLOOD- poct (STL) 170 mg/dL H 72-99 Aug 21, 2024 04:32 PM [facility] GLUCOSE,BLOOD-poct (STL) Specimen Type: BLOOD Comment: Test Performed by: [id number] Meter #: [id number] Ordering Provider: SILVIA REDDY Report Released Date/Time: Aug 21, 2024 04:49 PM Reporting Lab: [facility] [address] [place] [address] Performing Lab: [facility] [place] [address] GLUCOSE,BLOOD- poct (STL) 169 mg/dL H 72-99 Aug 21, 2024 11:53 AM [facility] GLUCOSE,BLOOD-poct (STL) Specimen Type: BLOOD Comment: Test Performed by: [id number] Meter #: [id number] Ordering Provider: SILVIA REDDY Report Released Date/Time: Aug 21, 2024 12:11 PM Reporting Lab: [facility] [address] [place] [address] Performing Lab: [facility] [address] [address] GLUCOSE,BLOOD- poct (STL) 149 mg/dL H -Aug 21, 2024 05:10 AM [facility] GLUCOSE,BLOOD-poct (STL) Specimen Type: BLOOD Comment: Test Performed by: [id number] Meter #: [id number] Ordering Provider: SILVIA REDDY Report Released Date/Time: Aug 21, 2024 05:27 AM Reporting Lab: [facility] [address] [address] Performing Lab: [facility] [address] [address] GLUCOSE,BLOOD- poct (STL) 118 mg/dL H -Aug 20, 2024 04:38 PM [facility] GLUCOSE,BLOOD-poct (STL) Specimen Type: BLOOD Comment: Test Performed by: [id number] Meter #: [id number] Ordering Provider: SILVIA REDDY Report Released Date/Time: Aug 21, 2024 01:55 AM Reporting Lab: [facility] [address] [facility] [address] Performing Lab: [facility] [address] [facility] [address] GLUCOSE,BLOOD- poct (STL) 169 mg/dL H -Aug 20, 2024 04:36 PM [facility] GLUCOSE,BLOOD-poct (STL) Specimen Type: BLOOD Comment: Test Performed by: [id number] Meter #: [id number] Ordering Provider: SILVIA REDDY Report Released Date/Time: Aug 21, 2024 01:55 AM Reporting Lab: [facility] [address] [address] Performing Lab: [facility] [address] [address] GLUCOSE,BLOOD- poct (STL) 395 mg/dL H 72-Aug 20, 2024 11:45 AM [facility] GLUCOSE,BLOOD-poct (STL) Specimen Type: BLOOD Comment: Test Performed by: [id number] Meter #: [id number] Ordering Provider: SILVIA REDDY Report Released Date/Time: Aug 20, 2024 11:56 AM Reporting Lab: [facility] [address] [address] Performing Lab: [facility] [address] GLUCOSE,BLOOD- poct (STL) 169 mg/dL H Aug 20, 2024 05:06 AM [facility] GLUCOSE,BLOOD-poct (STL) Specimen Type: BLOOD Comment: Test Performed by: [id number] Meter #: [id number] Ordering Provider: SILVIA REDDY Report Released Date/Time: Aug 20, 2024 06:05 AM Reporting Lab: [facility] [address] Performing Lab: [facility] [address] GLUCOSE,BLOOD- poct (STL) 115 mg/dL H Aug 19, 2024 04:23 PM [facility] GLUCOSE,BLOOD-poct (STL) Specimen Type: BLOOD Comment: Test Performed by: [id number] Meter #: [id number] Ordering Provider: SILVIA REDDY Report Released Date/Time: Aug 19, 2024 05:54 PM Reporting Lab: [facility] [address] Performing Lab: [facility] [address] [address] GLUCOSE,BLOOD- poct (STL) 137 mg/dL H Aug 19, 2024 11:28 AM [facility] GLUCOSE,BLOOD-poct (STL) Specimen Type: BLOOD Comment: Test Performed by: [id number] Meter #: [id number] Ordering Provider: SILVIA REDDY Report Released Date/Time: Aug 19, 2024 11:51 AM Reporting Lab: [facility] [address] Performing Lab: [facility] [address] GLUCOSE,BLOOD- poct (STL) 190 mg/dL H 72-Aug 19, 2024 05:21 AM [facility] GLUCOSE,BLOOD-poct (STL) Specimen Type: BLOOD Comment: Test Performed by: [id number] Meter #: [id number] Ordering Provider: SILVIA REDDY Report Released Date/Time: Aug 19, 2024 05:56 AM Reporting Lab: [facility] [address] [address] Performing Lab: [facility] [address] [place] [address] GLUCOSE,BLOOD- poct (STL) 130 mg/dL H -Aug 18, 2024 04:49 PM [facility] GLUCOSE,BLOOD-poct (STL) Specimen Type: BLOOD Comment: Test Performed by: [id number] Meter #: [id number] Ordering Provider: SILVIA REDDY Report Released Date/Time: Aug 18, 2024 05:01 PM Reporting Lab: [facility] [address] [place] [phone] Performing Lab: [facility] [address] [address] GLUCOSE,BLOOD- poct (STL) 129 mg/dL H 72-Aug 18, 2024 11:23 AM [facility] GLUCOSE,BLOOD-poct (STL) Specimen Type: BLOOD Comment: Test Performed by: [id number] Meter #: [id number] Ordering Provider: SILVIA REDDY Report Released Date/Time: Aug 18, 2024 11:41 AM Reporting Lab: [facility] [place] [address] Performing Lab: [facility] [address] [address] GLUCOSE,BLOOD- poct (STL) 180 mg/dL H Aug 18, 2024 05:08 AM [facility] GLUCOSE,BLOOD-poct (STL) Specimen Type: BLOOD Comment: Test Performed by: [id number] Meter #: [id number] Ordering Provider: SILVIA REDDY Report Released Date/Time: Aug 18, 2024 05:31 AM Reporting Lab: [facility] [facility] [address] Performing Lab: [facility] [address] [facility] [address] GLUCOSE,BLOOD- poct (STL) 127 mg/dL H Aug 17, 2024 07:32 PM [facility] GLUCOSE,BLOOD-poct (STL) Specimen Type: BLOOD Comment: Test Performed by: [id number] Meter #: [id number] Ordering Provider: SILVIA REDDY Report Released Date/Time: Aug 17, 2024 07:59 PM Reporting Lab: [facility] [facility] [address] Performing Lab: [facility] [address] [facility] [address] GLUCOSE,BLOOD- poct (STL) 154 mg/dL H Aug 17, 2024 04:24 PM [facility] GLUCOSE,BLOOD-poct (STL) Specimen Type: BLOOD Comment: Test Performed by: [id number] Meter #: [id number] Ordering Provider: SILVIA REDDY Report Released Date/Time: Aug 17, 2024 04:35 PM Reporting Lab: [facility] [facility] [address] Performing Lab: [facility] [address] [facility] [address] GLUCOSE,BLOOD- poct (STL) 178 mg/dL H Aug 17, 2024 05:09 AM [facility] GLUCOSE,BLOOD-poct (STL) Specimen Type: BLOOD Comment: Test Performed by: [id number] Meter #: [id number] Ordering Provider: SILVIA REDDY Report Released Date/Time: Aug 17, 2024 05:54 AM Reporting Lab: [facility] [address] Performing Lab: [facility] [address] GLUCOSE,BLOOD- poct (STL) 124 mg/dL H Aug 16, 2024 07:40 PM [facility] GLUCOSE,BLOOD-poct (STL) Specimen Type: BLOOD Comment: Test Performed by: [id number] Meter #: [id number] Ordering Provider: SILVIA REDDY Report Released Date/Time: Aug 16, 2024 08:28 PM Reporting Lab: [facility] [address] Performing Lab: [facility] [address] GLUCOSE,BLOOD- poct (STL) 144 mg/dL H Aug 16, 2024 04:19 PM [facility] GLUCOSE,BLOOD-poct (STL) Specimen Type: BLOOD Comment: Test Performed by: [id number] Meter #: [id number] Ordering Provider: SILVIA REDDY Report Released Date/Time: Aug 16, 2024 04:45 PM Reporting Lab: [facility] [address] Performing Lab: [facility] [address] GLUCOSE,BLOOD- poct (STL) 138 mg/dL H Aug 16, 2024 11:52 AM [facility] GLUCOSE,BLOOD-poct (STL) Specimen Type: BLOOD Comment: Test Performed by: [id number] Meter #: [id number] Ordering Provider: SILVIA REDDY Report Released Date/Time: Aug 16, 2024 12:04 PM Reporting Lab: [facility] [address] Performing Lab: [facility] [address] GLUCOSE,BLOOD- poct (STL) 135 mg/dL H -Aug 16, 2024 05:24 AM [facility] GLUCOSE,BLOOD-poct (STL) Specimen Type: BLOOD Comment: Test Performed by: [id number] Meter #: [id number] Ordering Provider: SILVIA REDDY Report Released Date/Time: Aug 16, 2024 05:38 AM Reporting Lab: [facility] [address] Performing Lab: [facility] [address] GLUCOSE,BLOOD- poct (STL) 151 mg/dL H -Aug 15, 2024 07:31 PM [facility] GLUCOSE,BLOOD-poct (STL) Specimen Type: BLOOD Comment: Test Performed by: [id number] Meter #: [id number] Ordering Provider: SILVIA REDDY Report Released Date/Time: Aug 15, 2024 08:07 PM Reporting Lab: [facility] [address] Performing Lab: [facility] [address] GLUCOSE,BLOOD- poct (STL) 173 mg/dL H -Aug 15, 2024 04:18 PM [facility] GLUCOSE,BLOOD-poct (STL) Specimen Type: BLOOD Comment: Test Performed by: [id number] Meter #: [id number] Ordering Provider: SILVIA REDDY Report Released Date/Time: Aug 15, 2024 04:59 PM Reporting Lab: [facility] [address] [place] [address] Performing Lab: [facility] [address] GLUCOSE,BLOOD- poct (STL) 136 mg/dL H -Aug 15, 2024 04:16 PM [facility] GLUCOSE,BLOOD-poct (STL) Specimen Type: BLOOD Comment: Test Performed by: [id number] Meter #: [id number] Ordering Provider: SILVIA REDDY Report Released Date/Time: Aug 15, 2024 04:59 PM Reporting Lab: [facility] [address] Performing Lab: [facility] [address] GLUCOSE,BLOOD- poct (STL) 194 mg/dL H Aug 15, 2024 11:39 AM [facility] GLUCOSE,BLOOD-poct (STL) Specimen Type: BLOOD Comment: Test Performed by: [id number] Meter #: [id number] Ordering Provider: SILVIA REDDY Report Released Date/Time: Aug 15, 2024 12:00 PM Reporting Lab: [facility] [address] Performing Lab: [facility] [address] GLUCOSE,BLOOD- poct (STL) 127 mg/dL H Aug 15, 2024 05:07 AM [facility] GLUCOSE,BLOOD-poct (STL) Specimen Type: BLOOD Comment: Test Performed by: [id number] Meter #: [id number] Ordering Provider: SILVIA REDDY Report Released Date/Time: Aug 15, 2024 06:14 AM Reporting Lab: [facility] [address] Performing Lab: [facility] [address] GLUCOSE,BLOOD- poct (STL) 151 mg/dL H Aug 14, 2024 04:22 PM [facility] GLUCOSE,BLOOD-poct (STL) Specimen Type: BLOOD Comment: Test Performed by: [id number] Meter #: [id number] Ordering Provider: SILVIA REDDY Report Released Date/Time: Aug 14, 2024 04:52 PM Reporting Lab: [facility] [address] Performing Lab: [facility] [address] GLUCOSE,BLOOD- poct (STL) 129 mg/dL H Aug 14, 2024 11:21 AM [facility] GLUCOSE,BLOOD-poct (STL) Specimen Type: BLOOD Comment: Test Performed by: [id number] Meter #: [id number] Ordering Provider: SILVIA REDDY Report Released Date/Time: Aug 14, 2024 11:37 AM Reporting Lab: [facility] [address] Performing Lab: [facility] [address] GLUCOSE,BLOOD- poct (STL) 135 mg/dL H Aug 14, 2024 06:59 AM [facility] QUANTIFERON-TB,4 TUBE Specimen Type: BLOOD Comment: [...] For additional information, please refer to [email or web address]-[email or web address] Brand/faq/[email or web address] (This link is being provided for information/ educational purposes only.) Test Performed by [facility], [facility], [address] [place] [address] Tommie Garcia M.D., Ph.D., Director of Laboratories , [facility] [id number] Ordering Provider: SILVIA REDDY Report Released Date/Time: Aug 11, 2024 03:58 PM Reporting Lab: [facility] [address] [place] [address] Performing Lab: [facility] [address] [facility] .NIL - QUANTIFERON 0.04 [IU]/mL .MITOGEN-NIL 0.39 [IU]/mL .QUANTIFERON INDETERMINATE NEGATIVE .TB1-NIL <0.00 [IU]/mL .TB2-NIL <0.00 [IU]/mL Aug 14, 2024 06:59 AM [facility] MAGNESIUM Specimen Type: PLASMA Comment: No hemolysis noted. Ordering Provider: SILVIA REDDY Report Released Date/Time: Aug 11, 2024 03:58 PM Reporting Lab: [facility] [address] Performing Lab: [facility] [address] MAGNESIUM 1.9 mg/dL 1.6-2.6 Aug 14, 2024 06:59 AM [facility] B12 Specimen Type: SERUM No comment entered. Ordering Provider: SILVIA REDDY Report Released Date/Time: Aug 11, 2024 03:58 PM Reporting Lab: [facility] [address] Performing Lab: [facility] [address] B12 757 pg/mL 213-816 Aug 14, 2024 06:59 AM [facility] FOLATE ([facility] Specimen Type: SERUM No comment entered. Ordering Provider: SILVIA REDDY Report Released Date/Time: Aug 11, 2024 03:58 PM Reporting Lab: [facility] [place] [phone] Performing Lab: [facility] [place] [phone] FOLATE (L-MA) 6.8 ng/mL L 7-20 Aug 14, 2024 06:59 AM [facility] VITAMIN D, 25-HYDROXY Specimen Type: SERUM No comment entered. Ordering Provider: SILVIA REDDY Report Released Date/Time: Aug 11, 2024 03:58 PM Reporting Lab: [facility] [place] [phone] Performing Lab: [facility] [place] [phone] VITAMIN D, 25-HYDROXY 8.9 ng/mL L 30-96 Aug 14, 2024 06:59 AM [facility] CBC Specimen Type: BLOOD No comment entered. Ordering Provider: SILVIA REDDY Report Released Date/Time: Aug 11, 2024 03:58 PM Reporting Lab: [facility] [place] [phone] Performing Lab: [facility] [place] [phone] WBC 4.1 10*3/uL 3.6-11.2 RBC 3.20 10*6/uL [...] 10*3/uL 0.00-0.20 Aug 14, 2024 06:59 AM [facility] COMPREHENSIVE METABOLIC PANEL Specimen Type: PLASMA Comment: No hemolysis noted. Ordering Provider: SILVIA REDDY Report Released Date/Time: Aug 11, 2024 03:58 PM Reporting Lab: [facility] [id number] Performing Lab: [facility] [place] [phone] CREATININE 0.75 mg/dL 0.70-1.30 UREA NITROGEN 13.6 [...] 95.88 >60 Aug 14, 2024 05:08 AM [facility] GLUCOSE,BLOOD-poct (STL) Specimen Type: BLOOD Comment: Test Performed by: [id number] Meter #: [id number] Ordering Provider: SILVIA REDDY Report Released Date/Time: Aug 14, 2024 05:52 AM Reporting Lab: [facility] [id number] Performing Lab: [facility] [place] [address] GLUCOSE,BLOOD- poct (STL) 135 mg/dL H Aug 13, 2024 04:27 PM [facility] GLUCOSE,BLOOD-poct (STL) Specimen Type: BLOOD Comment: Test Performed by: [id number] Meter #: [id number] Ordering Provider: SILVIA REDDY Report Released Date/Time: Aug 13, 2024 04:41 PM Reporting Lab: [facility] [place] [address] Performing Lab: [facility] [place] [address] GLUCOSE,BLOOD- poct (STL) 181 mg/dL H Aug 13, 2024 11:33 AM [facility] GLUCOSE,BLOOD-poct (STL) Specimen Type: BLOOD Comment: Test Performed by: [id number] Meter #: [id number] Ordering Provider: SILVIA REDDY Report Released Date/Time: Aug 13, 2024 03:55 PM Reporting Lab: [facility] [place] [address] Performing Lab: [facility] [place] [id number] GLUCOSE,BLOOD- poct (STL) 140 mg/dL H Aug 13, 2024 05:54 AM [facility] GLUCOSE,BLOOD-poct (STL) Specimen Type: BLOOD Comment: Test Performed by: [id number] Meter #: [id number] Ordering Provider: SILVIA REDDY Report Released Date/Time: Aug 13, 2024 06:20 AM Reporting Lab: [facility] [place] [address] Performing Lab: [facility] [place] [id number] GLUCOSE,BLOOD- poct (STL) 112 mg/dL H 72-Aug 12, 2024 04:35 PM [facility] GLUCOSE,BLOOD-poct (STL) Specimen Type: BLOOD Comment: Test Performed by: [id number] Meter #: [id number] Ordering Provider: SILVIA REDDY Report Released Date/Time: Aug 12, 2024 04:47 PM Reporting Lab: [facility] [id number] Performing Lab: [facility] [address] GLUCOSE,BLOOD- poct (STL) 128 mg/dL H -Aug 12, 2024 11:26 AM [facility] GLUCOSE,BLOOD-poct (STL) Specimen Type: BLOOD Comment: Test Performed by: [id number] Meter #: [id number] Ordering Provider: SILVIA REDDY Report Released Date/Time: Aug 12, 2024 11:45 AM Reporting Lab: [facility] [phone] Performing Lab: [facility] [address] GLUCOSE,BLOOD- poct (STL) 188 mg/dL H -Aug 12, 2024 06:13 AM [facility] GLUCOSE,BLOOD-poct (STL) Specimen Type: BLOOD Comment: Test Performed by: [id number] Meter #: [id number] Ordering Provider: SILVIA REDDY Report Released Date/Time: Aug 12, 2024 06:25 AM Reporting Lab: [facility] [address] Performing Lab: [facility] [address] GLUCOSE,BLOOD- poct (STL) 116 mg/dL H -Aug 11, 2024 04:10 PM [facility] GLUCOSE,BLOOD-poct (STL) Specimen Type: BLOOD Comment: Test Performed by: [id number] Meter #: [id number] Ordering Provider: SILVIA REDDY Report Released Date/Time: Aug 11, 2024 04:27 PM Reporting Lab: [facility] [address] Performing Lab: [facility] [address] GLUCOSE,BLOOD- poct (STL) 184 mg/dL H 72-99 Aug 11, 2024 01:44 PM [facility] MRSA SURVL NARES DNA Specimen Type: [...] Aug 11, 2024 02:03 PM Reporting Lab: [facility] [address] [place] [phone] Performing Lab: [address] [address] MRSA SURVL NARES DNA Negative Negative Jul 20, 2024 11:18 AM [facility] APTT Specimen Type: PLASMA No comment entered. Ordering Provider: MANUEL BAIRD Report Released Date/Time: Jul 19, 2024 04:00 PM Reporting Lab: [facility] [address] [place] [phone] Performing Lab: [address] [address] APTT 32.1 s 26.7-39.9 Jul 20, 2024 11:18 AM [facility] PT/INR NEW (STL-MA) Specimen Type: PLASMA No comment entered. Ordering Provider: MANUEL BAIRD Report Released Date/Time: Jul 19, 2024 04:00 PM Reporting Lab: [facility] [address] [place] [address] Performing Lab: [facility] [address] [facility] [address] PROTIME 14.4 s H 9.4-12.5 INR VALUE 1.3 {INR} Jul 20, 2024 11:18 AM [facility] CBC Specimen Type: BLOOD No comment entered. Ordering Provider: MANUEL BAIRD Report Released Date/Time: Jul 19, 2024 04:00 PM Reporting Lab: [facility] [address] [facility] [place] [address] Performing Lab: [facility] [address] [facility] [place] [address] WBC 4.7 10*3/uL 3.6-11.2 RBC 4.86 10*6/uL [...] PM 98.1 75 101/61 18 95 0 [facility] N Aug 16, 2024 09:51 AM 97.7 80 136/85 18 94 [facility] Aug 16, 2024 05:35 AM 97.1 86 96/60 18 92 0 [facility] Advance Directives: All historical and [...] 19, 2017 ADVANCE DIRECTIVE DISCUSSION ERICK BARDALES [facility] Encounter Notes: All associated encounter notes This section contains the clinical notes associated to the Encounter. Date/Time Encounter Note(s) Provider Source Aug 16, 2024 01:00 PM RECREATIONAL THERA PY NOTE: LOCAL TITLE: RT PROGRESS STL STANDARD TITLE: RECREATIONAL THERAPY NOTE DATE OF NOTE: AUG 16, 2024@13:00 ENTRY DATE: AUG 16, 2024@15:13:18 AUTHOR: KAYLIE ALTAMIRANO EXP COSIGNER: URGENCY: STATUS: COMPLETED DATE OF INTERVENTION:08-16-24 PROVIDER:DEVAN Krishnamurthy TYPE OF SESSION:Group NUMBER OF PARTICIPANTS:16 Total DURATION:135 minutes DIAGNOSIS:I25.810 RESPONSE TO TREATMENT: observed lying in bed awake. agreeable to participating in bowling session with additional encouragement and reassurance from SITE WORKER. transferred from bed to w/c SBA. SITE WORKER escorted to the bowling alley in w/c. Once at the bowling alley, remained seated in w/c and utilized adaptive bowling ramp. [place] took part in one game r/t number of participants and number of bowling alleys. During the bowling activity, was able to demonstrate ability to position the ball on the [place] ramp indep. for strike ball and required verbal and physical cueing for second throw. reported that he enjoyed bowling today. He was observed smiling in response to bowling spares and a strike. Will continue to encourage recreation participation. /shen/ DEVAN KRISHNAMURTHY RECREATION THERAPIST, ECRS Signed: 08/16/2024 15:28 KAYLIE ALTAMIRANO [facility]
--- OUTSIDE RECORDS SUMMARY | 2024-11-17 04:14 | XMS_ITS ---
[place] DAILY HOSPITALIZATION DATA [facility] Encounter Summary Created on: November 16, 2024 CHET WALKER : 1950 Sex: Male Author Name [facility] [place] [facility] [place] [facility] [place] Address [address] [place] [address] Care Team Providers Care Tax Investigator Name Role Phone MANUEL BAIRD Primary Care [...] PART A Apr 08, 2017 PART A [id number] [phone] ASHLEY WALKER PATIENT Selected Encounter This section includes the information on record at [place] for the Encounter. Date/Time Encounter Type Encounter Description Reason Pro vider Source Aug 16, 2024 08:44 PM Inpatient Visit DAILY HOSPITALIZATION DATA JOSSE[facility] [...] appointments. The data comes from all [facility]. Appointment Date/Time Appointment Type Appointme nt Facility Name Aug 24, 2024 10:00 AM AMBULATORY - MEDICINE [facility] Aug 24, 2024 10:30 AM AMBULATORY - MEDICINE [facility] Aug 30, 2024 09:30 AM AMBULATORY MEDICINE [facility] Aug 31, 2024 01:00 PM AMBULATORY - SURGERY [facility] Sep 21, 2024 01:30 PM AMBULATORY - MEDICINE [facility] Sep 22, 2024 11:00 AM AMBULATORY - MEDICINE [facility] Sep 29, 2024 12:30 PM AMBULATORY - MEDICINE [facility] Oct 02, 2024 09:30 AM AMBULATORY - MEDICINE [facility] Nov 20, 2024 10:30 AM AMBULATORY - SURGERY [facility] Nov 21, 2024 10:00 AM AMBULATORY - NONE [facility] Dec 11, 2024 10:30 AM AMBULATORY - MEDICINE [facility] Active, Pending, and Scheduled [...] theEncounter. The data comes from all [facility]. Test Date/Time Test Type Test Details Facility Name Aug 02, 2024 12:00 AM Laboratory - Chemistry Order CBC BLOOD STAT SP [facility] Aug 02, 2024 12:00 AM Laboratory - Chemistry Order COMPREHENSIVE METABOLIC PANEL GREEN LI/HEP BLD/PLAS PLASMA SP [facility] Aug 17, 2024 03:47 PM Consult Order [facility] Cons Bedside [facility] Lab Results: +/- 30 [...] Range Comment Aug 23, 2024 08:21 AM [facility] CBC Specimen Type: BLOOD No comment entered. Ordering Provider: SILVIA REDDY Report Released Date/Time: Aug 22, 2024 11:19 AM Reporting Lab: [facility] [facility] [address] Performing Lab: [facility]1 [facility] [address] WBC 4.0 10*3/uL 3.6-11.2 RBC 3.65 10*6/uL [...] 10*3/uL 0.00-0.20 Aug 23, 2024 08:21 AM [facility] MAGNESIUM Specimen Type: PLASMA No comment entered. Ordering Provider: SILVIA REDDY Report Released Date/Time: Aug 22, 2024 11:26 AM Reporting Lab: [facility]1 [facility] [address] Performing Lab: [facility]1 [facility] [address] MAGNESIUM 1.8 mg/dL 1.6-2.6 Aug 23, 2024 05:12 AM [facility] GLUCOSE,BLOOD-poct (STL) Specimen Type: BLOOD Comment: Test Performed by: [id number] Meter #: [id number] Ordering Provider: SILVIA REDDY Report Released Date/Time: Aug 23, 2024 05:23 AM Reporting Lab: [facility] [address] Performing Lab: [facility]1 [facility] [address] GLUCOSE,BLOOD- poct (STL) 99 mg/dL 72-99 Aug 23, 2024 02:45 AM [facility] OCCULT BLOOD FIT X1 SCREEN Specimen Type: FECES No comment entered. Ordering Provider: SILVIA REDDY Report Released Date/Time: Aug 22, 2024 11:23 AM Reporting Lab: [facility] [address] [facility] [address] Performing Lab: [facility] [address] [place] [address] OCCULT BLOOD (FIT) #1 OF 1 Negative Negative Aug 22, 2024 07:30 PM [facility] OCCULT BLOOD FIT X1 SCREEN Specimen Type: FECES No comment entered. Ordering Provider: SILVIA REDDY Report Released Date/Time: Aug 22, 2024 11:23 AM Reporting Lab: [facility] [address] [facility] [address] Performing Lab: [facility] [address] [facility] [address] OCCULT BLOOD (FIT) #1 OF 1 Negative Negative Aug 22, 2024 06:15 PM [facility] OCCULT BLOOD FIT X1 SCREEN Specimen Type: FECES No comment entered. Ordering Provider: SILVIA REDDY Report Released Date/Time: Aug 22, 2024 11:23 AM Reporting Lab: [facility] [address] [facility] [address] Performing Lab: [place] [address] [facility] [address] OCCULT BLOOD (FIT) #1 OF 1 Negative Negative Aug 22, 2024 04:24 PM [facility] GLUCOSE,BLOOD-poct (STL) Specimen Type: BLOOD Comment: Test Performed by: [id number] Meter #: [id number] Ordering Provider: SILVIA REDDY Report Released Date/Time: Aug 22, 2024 04:36 PM Reporting Lab: [facility] [address] Performing Lab: [facility] #1 [facility] [address] GLUCOSE,BLOOD- poct (STL) 176 mg/dL H -Aug 22, 2024 04:23 PM [facility] GLUCOSE,BLOOD-poct (STL) Specimen Type: BLOOD Comment: Test Performed by: [id number] Meter #: [id number] Ordering Provider: SILVIA REDDY Report Released Date/Time: Aug 22, 2024 04:36 PM Reporting Lab: [facility]1 [facility] [address] Performing Lab: [facility]1 [facility] [address] GLUCOSE,BLOOD- poct (STL) 221 mg/dL H -Aug 22, 2024 11:15 AM [facility] GLUCOSE,BLOOD-poct (STL) Specimen Type: BLOOD Comment: Test Performed by: [id number] Meter #: [id number] Ordering Provider: SILVIA REDDY Report Released Date/Time: Aug 22, 2024 11:27 AM Reporting Lab: [facility]1 [facility] [address] Performing Lab: [facility]1 [facility] [address] GLUCOSE,BLOOD- poct (STL) 140 mg/dL H 72-Aug 22, 2024 08:[address] [facility] CBC Specimen Type: BLOOD No comment entered. Ordering Provider: SILVIA REDDY Report Released Date/Time: Aug 17, 2024 01:18 PM Reporting Lab: [facility]1 [facility] [address] Performing Lab: [facility]1 [facility] [address] WBC 3.5 10*3/uL L 3.6-11.2 RBC 3.23 [...] NRBC% 0 Aug 22, 2024 08:03 AM [facility] COMPREHENSIVE METABOLIC PANEL Specimen Type: PLASMA Comment: No hemolysis noted. Ordering Provider: SILVIA REDDY Report Released Date/Time: Aug 17, 2024 01:18 PM Reporting Lab: [facility] [address] [facility] [address] Performing Lab: [facility] [address] [facility] [address] CREATININE 0.80 mg/dL 0.7-1.3 UREA NITROGEN 9.7 [...] 94.0 >60 Aug 22, 2024 08:03 AM [facility] FERRITIN Specimen Type: SERUM No comment entered. Ordering Provider: JUDIT PERKINS Report Released Date/Time: Aug 18, 2024 11:01 AM Reporting Lab: [address] [address] Performing Lab: [facility] [address] [facility] [address] FERRITIN 79.50 ng/mL 22-275 Aug 22, 2024 08:03 AM [facility] IRON/TIBC PROFILE Specimen Type: SERUM No comment entered. Ordering Provider: JUDIT PERKINS Report Released Date/Time: Aug 18, 2024 11:01 AM Reporting Lab: [facility] [address] [facility] [address] Performing Lab: [address] [address] TIBC 283 ug/dL 250-450 TRANSFERRIN 226 mg/dL 163-344 IRON SATURATION 7 L 20-50 IRON 19 ug/dL L 65-175 Aug 22, 2024 08:03 AM [facility] B12 Specimen Type: SERUM No comment entered. Ordering Provider: JUDIT PERKINS Report Released Date/Time: Aug 18, 2024 11:01 AM Reporting Lab: [facility]1 [facility] [address] Performing Lab: [facility]1 [facility] [address] B12 631 pg/mL 213-816 Aug 22, 2024 05:03 AM [facility] GLUCOSE,BLOOD-poct (STL) Specimen Type: BLOOD Comment: Test Performed by: [id number] Meter #: [id number] Ordering Provider: SILVIA REDDY Report Released Date/Time: Aug 22, 2024 06:17 AM Reporting Lab: [facility] #1 [facility] [address] Performing Lab: [facility] #1 [facility] [address] GLUCOSE,BLOOD- poct (STL) 170 mg/dL H 72-Aug 21, 2024 04:32 PM [facility] GLUCOSE,BLOOD-poct (STL) Specimen Type: BLOOD Comment: Test Performed by: [id number] Meter #: [id number] Ordering Provider: SILVIA REDDY Report Released Date/Time: Aug 21, 2024 04:49 PM Reporting Lab: [facility]1 [facility] [address] Performing Lab: [facility] #1 [facility] [address] GLUCOSE,BLOOD- poct (STL) 169 mg/dL H -Aug 21, 2024 11:53 AM [facility] GLUCOSE,BLOOD-poct (STL) Specimen Type: BLOOD Comment: Test Performed by: [id number] Meter #: [id number] Ordering Provider: SILVIA REDDY Report Released Date/Time: Aug 21, 2024 12:11 PM Reporting Lab: [facility] #1 [facility] [address] Performing Lab: [facility] #1 [facility] [address] GLUCOSE,BLOOD- poct (STL) 149 mg/dL H 72-Aug 21, 2024 05:10 AM [facility] GLUCOSE,BLOOD-poct (STL) Specimen Type: BLOOD Comment: Test Performed by: [id number] Meter #: [id number] Ordering Provider: SILVIA REDDY Report Released Date/Time: Aug 21, 2024 05:27 AM Reporting Lab: [facility] #1 [facility] [address] Performing Lab: [facility] #1 [facility] [address] GLUCOSE,BLOOD- poct (STL) 118 mg/dL H 72-Aug 20, 2024 04:38 PM [facility] GLUCOSE,BLOOD-poct (STL) Specimen Type: BLOOD Comment: Test Performed by: [id number] Meter #: [id number] Ordering Provider: SILVIA REDDY Report Released Date/Time: Aug 21, 2024 01:55 AM Reporting Lab: [facility] #1 [facility] [address] Performing Lab: [facility] #1 [place] [address] GLUCOSE,BLOOD- poct (STL) 169 mg/dL H -Aug 20, 2024 04:36 PM [facility] GLUCOSE,BLOOD-poct (STL) Specimen Type: BLOOD Comment: Test Performed by: [id number] Meter #: [id number] Ordering Provider: SILVIA REDDY Report Released Date/Time: Aug 21, 2024 01:55 AM Reporting Lab: [facility] #1 [facility] [address] Performing Lab: [facility] #1 [facility] [address] GLUCOSE,BLOOD- poct (STL) 395 mg/dL H 72-Aug 20, 2024 11:45 AM [facility] GLUCOSE,BLOOD-poct (STL) Specimen Type: BLOOD Comment: Test Performed by: [id number] Meter #: [id number] Ordering Provider: SILVIA REDDY Report Released Date/Time: Aug 20, 2024 11:56 AM Reporting Lab: [facility] #1 [place] [address] Performing Lab: [facility]1 [facility] [address] GLUCOSE,BLOOD- poct (STL) 169 mg/dL H -Aug 20, 2024 05:06 AM [facility] GLUCOSE,BLOOD-poct (STL) Specimen Type: BLOOD Comment: Test Performed by: [id number] Meter #: [id number] Ordering Provider: SILVIA REDDY Report Released Date/Time: Aug 20, 2024 06:05 AM Reporting Lab: [facility]1 [facility] [address] Performing Lab: [facility] #1 [facility] [address] GLUCOSE,BLOOD- poct (STL) 115 mg/dL H -Aug 19, 2024 04:23 PM [facility] GLUCOSE,BLOOD-poct (STL) Specimen Type: BLOOD Comment: Test Performed by: [id number] Meter #: [id number] Ordering Provider: SILVIA REDDY Report Released Date/Time: Aug 19, 2024 05:54 PM Reporting Lab: [facility]1 [facility] [address] Performing Lab: [facility] #1 [facility] [address] GLUCOSE,BLOOD- poct (STL) 137 mg/dL H -Aug 19, 2024 11:28 AM [facility] GLUCOSE,BLOOD-poct (STL) Specimen Type: BLOOD Comment: Test Performed by: [id number] Meter #: [id number] Ordering Provider: SILVIA REDDY Report Released Date/Time: Aug 19, 2024 11:51 AM Reporting Lab: [facility]1 [facility] [address] Performing Lab: [facility] #1 [facility] [address] GLUCOSE,BLOOD- poct (STL) 190 mg/dL H Aug 19, 2024 05:21 AM [facility] GLUCOSE,BLOOD-poct (STL) Specimen Type: BLOOD Comment: Test Performed by: [id number] Meter #: [id number] Ordering Provider: SILVIA REDDY Report Released Date/Time: Aug 19, 2024 05:56 AM Reporting Lab: [facility] #1 [facility] [address] Performing Lab: [facility] #1 [facility] [address] GLUCOSE,BLOOD- poct (STL) 130 mg/dL H Aug 18, 2024 04:49 PM [facility] GLUCOSE,BLOOD-poct (STL) Specimen Type: BLOOD Comment: Test Performed by: [id number] Meter #: [id number] Ordering Provider: SILVIA REDDY Report Released Date/Time: Aug 18, 2024 05:01 PM Reporting Lab: [facility]1 [facility] [address] Performing Lab: [facility] #1 [facility] [address] GLUCOSE,BLOOD- poct (STL) 129 mg/dL H Aug 18, 2024 11:23 AM [facility] GLUCOSE,BLOOD-poct (STL) Specimen Type: BLOOD Comment: Test Performed by: [id number] Meter #: [id number] Ordering Provider: SILVIA REDDY Report Released Date/Time: Aug 18, 2024 11:41 AM Reporting Lab: [facility] #1 [facility] [address] Performing Lab: [facility] #1 [facility] [address] GLUCOSE,BLOOD- poct (STL) 180 mg/dL H Aug 18, 2024 05:08 AM [facility] GLUCOSE,BLOOD-poct (STL) Specimen Type: BLOOD Comment: Test Performed by: [id number] Meter #: [id number] Ordering Provider: SILVIA REDDY Report Released Date/Time: Aug 18, 2024 05:31 AM Reporting Lab: [facility]1 [facility] [address] Performing Lab: [facility] #1 [facility] [address] GLUCOSE,BLOOD- poct (STL) 127 mg/dL H -Aug 17, 2024 07:32 PM [facility] GLUCOSE,BLOOD-poct (STL) Specimen Type: BLOOD Comment: Test Performed by: [id number] Meter #: [id number] Ordering Provider: SILVIA REDDY Report Released Date/Time: Aug 17, 2024 07:59 PM Reporting Lab: [facility] #1 [facility] [address] Performing Lab: [facility] #1 [facility] [address] GLUCOSE,BLOOD- poct (STL) 154 mg/dL H -Aug 17, 2024 04:24 PM [facility] GLUCOSE,BLOOD-poct (STL) Specimen Type: BLOOD Comment: Test Performed by: [id number] Meter #: [id number] Ordering Provider: SILVIA REDDY Report Released Date/Time: Aug 17, 2024 04:35 PM Reporting Lab: [facility] #1 [facility] [address] Performing Lab: [facility]1 [facility] [address] GLUCOSE,BLOOD- poct (STL) 178 mg/dL H -Aug 17, 2024 05:09 AM [facility] GLUCOSE,BLOOD-poct (STL) Specimen Type: BLOOD Comment: Test Performed by: [id number] Meter #: [id number] Ordering Provider: SILVIA REDDY Report Released Date/Time: Aug 17, 2024 05:54 AM Reporting Lab: [facility] #1 [place] [address] Performing Lab: [facility]1 [facility] [address] GLUCOSE,BLOOD- poct (STL) 124 mg/dL H -Aug 16, 2024 07:40 PM [facility] GLUCOSE,BLOOD-poct (STL) Specimen Type: BLOOD Comment: Test Performed by: [id number] Meter #: [id number] Ordering Provider: SILVIA REDDY Report Released Date/Time: Aug 16, 2024 08:28 PM Reporting Lab: [facility]1 [facility] [address] Performing Lab: [facility] #1 [facility] [address] GLUCOSE,BLOOD- poct (STL) 144 mg/dL H Aug 16, 2024 04:19 PM [facility] GLUCOSE,BLOOD-poct (STL) Specimen Type: BLOOD Comment: Test Performed by: [id number] Meter #: [id number] Ordering Provider: SILVIA REDDY Report Released Date/Time: Aug 16, 2024 04:45 PM Reporting Lab: [facility] #1 [facility] [address] Performing Lab: [facility] #1 [facility] [address] GLUCOSE,BLOOD- poct (STL) 138 mg/dL H Aug 16, 2024 11:52 AM [facility] GLUCOSE,BLOOD-poct (STL) Specimen Type: BLOOD Comment: Test Performed by: [id number] Meter #: [id number] Ordering Provider: SILVIA REDDY Report Released Date/Time: Aug 16, 2024 12:04 PM Reporting Lab: [facility]1 [facility] [address] Performing Lab: [facility]1 [facility] [address] GLUCOSE,BLOOD- poct (STL) 135 mg/dL H Aug 16, 2024 05:24 AM [facility] GLUCOSE,BLOOD-poct (STL) Specimen Type: BLOOD Comment: Test Performed by: [id number] Meter #: [id number] Ordering Provider: SILVIA REDDY Report Released Date/Time: Aug 16, 2024 05:38 AM Reporting Lab: [facility]1 [facility] [address] Performing Lab: [facility]1 [facility] [address] GLUCOSE,BLOOD- poct (STL) 151 mg/dL H Aug 15, 2024 07:31 PM [facility] GLUCOSE,BLOOD-poct (STL) Specimen Type: BLOOD Comment: Test Performed by: [id number] Meter #: [id number] Ordering Provider: SILVIA REDDY Report Released Date/Time: Aug 15, 2024 08:07 PM Reporting Lab: [facility]1 [facility] [address] Performing Lab: [facility] #1 [facility] [address] GLUCOSE,BLOOD- poct (STL) 173 mg/dL H Aug 15, 2024 04:18 PM [facility] GLUCOSE,BLOOD-poct (STL) Specimen Type: BLOOD Comment: Test Performed by: [id number] Meter #: [id number] Ordering Provider: SILVIA REDDY Report Released Date/Time: Aug 15, 2024 04:59 PM Reporting Lab: [facility]1 [facility] [address] Performing Lab: [facility]1 [facility] [address] GLUCOSE,BLOOD- poct (STL) 136 mg/dL H Aug 15, 2024 04:16 PM [facility] GLUCOSE,BLOOD-poct (STL) Specimen Type: BLOOD Comment: Test Performed by: [id number] Meter #: [id number] Ordering Provider: SILVIA REDDY Report Released Date/Time: Aug 15, 2024 04:59 PM Reporting Lab: [facility]1 [facility] [address] Performing Lab: [facility]1 [facility] [address] GLUCOSE,BLOOD- poct (STL) 194 mg/dL H -Aug 15, 2024 11:39 AM [facility] GLUCOSE,BLOOD-poct (STL) Specimen Type: BLOOD Comment: Test Performed by: [id number] Meter #: [id number] Ordering Provider: SILVIA REDDY Report Released Date/Time: Aug 15, 2024 12:00 PM Reporting Lab: [facility]1 [facility] [address] Performing Lab: [facility] [address] GLUCOSE,BLOOD- poct (STL) 127 mg/dL H -Aug 15, 2024 05:07 AM [facility] GLUCOSE,BLOOD-poct (STL) Specimen Type: BLOOD Comment: Test Performed by: [id number] Meter #: [id number] Ordering Provider: SILVIA REDDY Report Released Date/Time: Aug 15, 2024 06:14 AM Reporting Lab: [facility]1 [facility] [address] Performing Lab: [facility]1 [facility] [address] GLUCOSE,BLOOD- poct (STL) 151 mg/dL H -Aug 14, 2024 04:22 PM [facility] GLUCOSE,BLOOD-poct (STL) Specimen Type: BLOOD Comment: Test Performed by: [id number] Meter #: [id number] Ordering Provider: SILVIA REDDY Report Released Date/Time: Aug 14, 2024 04:52 PM Reporting Lab: [facility] [place] [address] Performing Lab: [facility] [address] GLUCOSE,BLOOD- poct (STL) 129 mg/dL H 72-99 Aug 14, 2024 11:21 AM [facility] GLUCOSE,BLOOD-poct (STL) Specimen Type: BLOOD Comment: Test Performed by: [id number] Meter #: [id number] Ordering Provider: SILVIA REDDY Report Released Date/Time: Aug 14, 2024 11:37 AM Reporting Lab: [facility] [address] Performing Lab: [facility] [address] GLUCOSE,BLOOD- poct (STL) 135 mg/dL H 72-99 Aug 14, 2024 06:59 AM [facility] QUANTIFERON-TB,4 TUBE Specimen Type: BLOOD Comment: [...] For additional information, please refer to [email or web address] (This link is being provided for information/ educational purposes only.) Test Performed by [employer], [place] [facility], [address] [place] [address] Tommie Garcia M.D., Ph.D., Director of Laboratories , [facility] [id number] Ordering Provider: SILVIA REDDY Report Released Date/Time: Aug 11, 2024 03:58 PM Reporting Lab: [facility] [address] [facility] [address] Performing Lab: [facility] [id number] [place] [address] .NIL - QUANTIFERON 0.04 [IU]/mL .MITOGEN-NIL 0.39 [IU]/mL .QUANTIFERON INDETERMINATE NEGATIVE .TB1-NIL <0.00 [IU]/mL .TB2-NIL <0.00 [IU]/mL Aug 14, 2024 06:59 AM [facility] MAGNESIUM Specimen Type: PLASMA Comment: No hemolysis noted. Ordering Provider: SILVIA REDDY Report Released Date/Time: Aug 11, 2024 03:58 PM Reporting Lab: [facility] [address] Performing Lab: [facility] [address] MAGNESIUM 1.9 mg/dL 1.6-2.6 Aug 14, 2024 06:59 AM [facility] VITAMIN D, 25-HYDROXY Specimen Type: SERUM No comment entered. Ordering Provider: SILVIA REDDY Report Released Date/Time: Aug 11, 2024 03:58 PM Reporting Lab: [facility] [facility] [address] Performing Lab: [facility]1 [facility] [address] VITAMIN D, 25-HYDROXY 8.9 ng/mL L 30-96 Aug 14, 2024 06:59 AM [facility] FOLATE (STL-MA) Specimen Type: SERUM No comment entered. Ordering Provider: SILVIA REDDY Report Released Date/Time: Aug 11, 2024 03:58 PM Reporting Lab: [facility]1 [place] [phone] Performing Lab: [facility]1 [facility] [address] FOLATE (STL-MA) 6.8 ng/mL L 7-20 Aug 14, 2024 06:59 AM [facility] B12 Specimen Type: SERUM No comment entered. Ordering Provider: SILVIA REDDY Report Released Date/Time: Aug 11, 2024 03:58 PM Reporting Lab: [facility]1 [facility] [address] Performing Lab: [facility] #1 [place] [phone] B12 757 pg/mL 213-816 Aug 14, 2024 06:59 AM [facility] COMPREHENSIVE METABOLIC PANEL Specimen Type: PLASMA Comment: No hemolysis noted. Ordering Provider: SILVIA REDDY Report Released Date/Time: Aug 11, 2024 03:58 PM Reporting Lab: [facility]1 [facility] [address] Performing Lab: [facility]1 [facility] [address] CREATININE 0.75 mg/dL 0.70-1.30 UREA NITROGEN 13.6 [...] 95.88 >60 Aug 14, 2024 06:59 AM [facility] CBC Specimen Type: BLOOD No comment entered. Ordering Provider: SILVIA REDDY Report Released Date/Time: Aug 11, 2024 03:58 PM Reporting Lab: [facility]1 [facility] [address] Performing Lab: [facility]1 [facility] [address] WBC 4.1 10*3/uL 3.6-11.2 RBC 3.20 10*6/uL [...] 10*3/uL 0.00-0.20 Aug 14, 2024 05:08 AM [facility] GLUCOSE,BLOOD-poct (STL) Specimen Type: BLOOD Comment: Test Performed by: [id number] Meter #: [id number] Ordering Provider: SILVIA REDDY Report Released Date/Time: Aug 14, 2024 05:52 AM Reporting Lab: [facility]1 [facility] [address] Performing Lab: [facility]1 [facility] [address] GLUCOSE,BLOOD- poct (STL) 135 mg/dL H 72-99 Aug 13, 2024 04:27 PM [facility] GLUCOSE,BLOOD-poct (STL) Specimen Type: BLOOD Comment: Test Performed by: [id number] Meter #: [id number] Ordering Provider: SILVIA REDDY Report Released Date/Time: Aug 13, 2024 04:41 PM Reporting Lab: [facility] #1 [facility] [address] Performing Lab: [facility] [address] GLUCOSE,BLOOD- poct (STL) 181 mg/dL H -Aug 13, 2024 11:33 AM [facility] GLUCOSE,BLOOD-poct (STL) Specimen Type: BLOOD Comment: Test Performed by: [id number] Meter #: [id number] Ordering Provider: SILVIA REDDY Report Released Date/Time: Aug 13, 2024 03:55 PM Reporting Lab: [facility] [address] Performing Lab: [facility] [place] [address] GLUCOSE,BLOOD- poct (STL) 140 mg/dL H Aug 13, 2024 05:54 AM [facility] GLUCOSE,BLOOD-poct (STL) Specimen Type: BLOOD Comment: Test Performed by: [id number] Meter #: [id number] Ordering Provider: SILVIA REDDY Report Released Date/Time: Aug 13, 2024 06:20 AM Reporting Lab: [facility] [address] Performing Lab: [facility] [address] GLUCOSE,BLOOD- poct (STL) 112 mg/dL H Aug 12, 2024 04:35 PM [facility] GLUCOSE,BLOOD-poct (STL) Specimen Type: BLOOD Comment: Test Performed by: [id number] Meter #: [id number] Ordering Provider: SILVIA REDDY Report Released Date/Time: Aug 12, 2024 04:47 PM Reporting Lab: [facility]1 [facility] [address] Performing Lab: [facility] #1 [facility] [address] GLUCOSE,BLOOD- poct (STL) 128 mg/dL H 72-99 Aug 12, 2024 11:26 AM [facility] GLUCOSE,BLOOD-poct (STL) Specimen Type: BLOOD Comment: Test Performed by: [id number] Meter #: [id number] Ordering Provider: SILVIA REDDY Report Released Date/Time: Aug 12, 2024 11:45 AM Reporting Lab: [facility] #1 [facility] [address] Performing Lab: [facility] #1 [facility] [address] GLUCOSE,BLOOD- poct (STL) 188 mg/dL H 72-Aug 12, 2024 06:13 AM [facility] GLUCOSE,BLOOD-poct (STL) Specimen Type: BLOOD Comment: Test Performed by: [id number] Meter #: [id number] Ordering Provider: SILVIA REDDY Report Released Date/Time: Aug 12, 2024 06:25 AM Reporting Lab: [facility] #1 [facility] [address] Performing Lab: [facility] #1 [facility] [address] GLUCOSE,BLOOD- poct (STL) 116 mg/dL H 72-99 Aug 11, 2024 04:10 PM [facility] GLUCOSE,BLOOD-poct (STL) Specimen Type: BLOOD Comment: Test Performed by: [id number] Meter #: [id number] Ordering Provider: SILVIA REDDY Report Released Date/Time: Aug 11, 2024 04:27 PM Reporting Lab: [facility] #1 [place] [address] Performing Lab: [facility]1 [facility] [address] GLUCOSE,BLOOD- poct (STL) 184 mg/dL H 72-99 Aug 11, 2024 01:44 PM [facility] MRSA SURVL NARES DNA Specimen Type: [...] 11, 2024 02:03 PM Reporting Lab: [address] [address] Performing Lab: [address] [address] MRSA SURVL NARES DNA Negative Negative Jul 20, 2024 11:18 AM [facility] APTT Specimen Type: PLASMA No comment entered. Ordering Provider: MANUEL BAIRD Report Released Date/Time: Jul 19, 2024 04:00 PM Reporting Lab: [address] [address] Performing Lab: [address] [address] APTT 32.1 s 26.7-39.9 Jul 20, 2024 11:18 AM [facility] PT/INR NEW (L-SC) Specimen Type: PLASMA No comment entered. Ordering Provider: MANUEL BAIRD Report Released Date/Time: Jul 19, 2024 04:00 PM Reporting Lab: [address] [address] Performing Lab: [address] [address] PROTIME 14.4 s H 9.4-12.5 INR VALUE 1.3 {INR} Jul 20, 2024 11:18 AM [facility] CBC Specimen Type: BLOOD No comment entered. Ordering Provider: MANUEL BAIRD Report Released Date/Time: Jul 19, 2024 04:00 PM Reporting Lab: [facility] DIV[facility] [address] [facility] [address] Performing Lab: [facility] [address] [facility] [address] WBC 4.7 10*3/uL 3.6-11.2 RBC 4.86 10*6/uL [...] PM 98.1 75 101/61 18 95 0 [facility]IO N Aug 16, 2024 09:51 AM 97.7 80 136/85 18 94 [facility] N Aug 16, 2024 05:35 AM 97.1 86 96/60 18 92 0 [facility] DIVISIO N Advance Directives: All historical and [...] DIRECTIVE DISCUSSION ERICK BARDALES [facility]ISION
--- OUTSIDE RECORDS SUMMARY | 2024-11-17 04:14 | XMS_ITS ---
[place] DAILY HOSPITALIZATION DATA [facility] Encounter Summary Created on: November 16, 2024 CHET WALKER : 1950 Sex: Male Author Name [facility] [place] [facility] [place] Address [address] [place] [address] Care Team Providers Care Junior Engineer Name Role Phone MANUEL BAIRD Primary [...] PART A Apr 08, 2017 PART A [id number] ASHLEY WALKER PATIENT Selected Encounter This section includes the information on record at [place] for the Encounter. Date/Time Encounter Type Encounter Description Reason Pro vider Source Aug 16, 2024 08:55 PM Inpatient Visit DAILY HOSPITALIZATION DATA JOSSELINE [...] 20 appointments. The data comes from all [facility]. Appointment Date/Time Appointment Type Appointme [...] 10:00 AM AMBULATORY - NONE [facility] Dec 11, 2024 10:30 AM AMBULATORY - [...] of theEncounter. The data comes from all [facility]. Test Date/Time Test Type Test Details Facility Name Aug 02, 2024 12:00 AM Laboratory - Chemistry Order CBC BLOOD STAT SP [facility] Aug 02, 2024 12:00 AM Laboratory - Chemistry Order COMPREHENSIVE METABOLIC PANEL GREEN LI/HEP BLD/PLAS PLASMA SP [facility] Aug 17, 2024 03:47 PM Consult Order [facility] SKILLED HOME CARE STL [...] Range Comment Aug 23, 2024 08:21 AM [facility] MAGNESIUM Specimen Type: PLASMA No comment entered. Ordering Provider: SILVIA REDDY Report Released Date/Time: Aug 22, 2024 11:26 AM Reporting Lab: [facility] [address] Performing Lab: [facility]1 [facility] [address] MAGNESIUM 1.8 mg/dL 1.6-2.6 Aug 23, 2024 08:21 AM [facility] CBC Specimen Type: BLOOD No comment entered. Ordering Provider: SILVIA REDDY Report Released Date/Time: Aug 22, 2024 11:19 AM Reporting Lab: [facility]1 [facility] [address] Performing Lab: [facility]1 [facility] [address] WBC 4.0 10*3/uL 3.6-11.2 RBC 3.65 10*6/uL [...] 10*3/uL 0.00-0.20 Aug 23, 2024 05:12 AM [facility] GLUCOSE,BLOOD-poct (STL) Specimen Type: BLOOD Comment: Test Performed by: [id number] Meter #: [id number] Ordering Provider: SILVIA REDDY Report Released Date/Time: Aug 23, 2024 05:23 AM Reporting Lab: [facility] [address] Performing Lab: [facility] #1 [facility] [address] GLUCOSE,BLOOD- poct (STL) 99 mg/dL 72-99 Aug 23, 2024 02:45 AM [facility] OCCULT BLOOD FIT X1 SCREEN Specimen Type: FECES No comment entered. Ordering Provider: SILVIA REDDY Report Released Date/Time: Aug 22, 2024 11:23 AM Reporting Lab: [address] [address] Performing Lab: [address] [address] OCCULT BLOOD (FIT) #1 OF 1 Negative Negative Aug 22, 2024 07:30 PM [facility] OCCULT BLOOD FIT X1 SCREEN Specimen Type: FECES No comment entered. Ordering Provider: SILVIA REDDY Report Released Date/Time: Aug 22, 2024 11:23 AM Reporting Lab: [address] [address] Performing Lab: [address] [address] OCCULT BLOOD (FIT) #1 OF 1 Negative Negative Aug 22, 2024 06:15 PM [facility] OCCULT BLOOD FIT X1 SCREEN Specimen Type: FECES No comment entered. Ordering Provider: SILVIA REDDY Report Released Date/Time: Aug 22, 2024 11:23 AM Reporting Lab: [address] [address] Performing Lab: [place] [id number] [facility] [address] OCCULT BLOOD (FIT) #1 OF 1 Negative Negative Aug 22, 2024 04:24 PM [facility] GLUCOSE,BLOOD-poct (STL) Specimen Type: BLOOD Comment: Test Performed by: [id number] Meter #: [id number] Ordering Provider: SILVIA REDDY Report Released Date/Time: Aug 22, 2024 04:36 PM Reporting Lab: [facility] [address] Performing Lab: [facility] #1 [facility] [address] GLUCOSE,BLOOD- poct (STL) 176 mg/dL H -Aug 22, 2024 04:23 PM [facility] GLUCOSE,BLOOD-poct (STL) Specimen Type: BLOOD Comment: Test Performed by: [id number] Meter #: [id number] Ordering Provider: SILVIA REDDY Report Released Date/Time: Aug 22, 2024 04:36 PM Reporting Lab: [facility]1 [facility] [address] Performing Lab: [facility] #1 [facility] [address] GLUCOSE,BLOOD- poct (STL) 221 mg/dL H 72-Aug 22, 2024 11:15 AM [facility] GLUCOSE,BLOOD-poct (STL) Specimen Type: BLOOD Comment: Test Performed by: [id number] Meter #: [id number] Ordering Provider: SILVIA REDDY Report Released Date/Time: Aug 22, 2024 11:27 AM Reporting Lab: [facility]1 [facility] [address] Performing Lab: [facility] #1 [facility] [address] GLUCOSE,BLOOD- poct (STL) 140 mg/dL H 72-Aug 22, 2024 08:[address] [facility] FERRITIN Specimen Type: SERUM No comment entered. Ordering Provider: JUDIT PERKINS Report Released Date/Time: Aug 18, 2024 11:01 AM Reporting Lab: [facility] [address] [facility] [address] Performing Lab: [facility] [address] [facility] [address] FERRITIN 79.50 ng/mL 22-275 Aug 22, 2024 08:03 AM [facility] B12 Specimen Type: SERUM No comment entered. Ordering Provider: JUDIT PERKINS Report Released Date/Time: Aug 18, 2024 11:01 AM Reporting Lab: [facility]1 [facility] [address] Performing Lab: [facility]1 [facility] [address] B12 631 pg/mL 213-816 Aug 22, 2024 08:03 AM [facility] IRON/TIBC PROFILE Specimen Type: SERUM No comment entered. Ordering Provider: JUDIT PERKINS Report Released Date/Time: Aug 18, 2024 11:01 AM Reporting Lab: [place] [id number] [facility] [address] Performing Lab: [facility] [address] [place] [address] TIBC 283 ug/dL 250-450 TRANSFERRIN 226 mg/dL 163-344 IRON SATURATION 7 L 20-50 IRON 19 ug/dL L 65-175 Aug 22, 2024 08:03 AM [facility] COMPREHENSIVE METABOLIC PANEL Specimen Type: PLASMA Comment: No hemolysis noted. Ordering Provider: SILVIA REDDY Report Released Date/Time: Aug 17, 2024 01:18 PM Reporting Lab: [facility] [address] [facility] [address] Performing Lab: [address] [address] CREATININE 0.80 mg/dL 0.7-1.3 UREA NITROGEN 9.7 [...] Lab: [facility]1 [facility] [address] Performing Lab: [facility]1 [facility] [address] WBC 3.5 10*3/uL L 3.6-11.2 RBC 3.23 [...] NRBC% 0 Aug 22, 2024 05:03 AM [facility] GLUCOSE,BLOOD-poct (STL) Specimen Type: BLOOD Comment: Test Performed by: [id number] Meter #: [id number] Ordering Provider: SILVIA REDDY Report Released Date/Time: Aug 22, 2024 06:17 AM Reporting Lab: [facility] #1 [facility] [address] Performing Lab: [facility] #1 [facility] [address] GLUCOSE,BLOOD- poct (STL) 170 mg/dL H 72-Aug 21, 2024 04:32 PM [facility] GLUCOSE,BLOOD-poct (STL) Specimen Type: BLOOD Comment: Test Performed by: [id number] Meter #: [id number] Ordering Provider: SILVIA REDDY Report Released Date/Time: Aug 21, 2024 04:49 PM Reporting Lab: [facility]1 [facility] [address] Performing Lab: [facility] #1 [facility] [address] GLUCOSE,BLOOD- poct (STL) 169 mg/dL H -Aug 21, 2024 11:53 AM [facility] GLUCOSE,BLOOD-poct (STL) Specimen Type: BLOOD Comment: Test Performed by: [id number] Meter #: [id number] Ordering Provider: SILVIA REDDY Report Released Date/Time: Aug 21, 2024 12:11 PM Reporting Lab: [facility] #1 [facility] [address] Performing Lab: [facility] #1 [facility] [address] GLUCOSE,BLOOD- poct (STL) 149 mg/dL H 72-Aug 21, 2024 05:10 AM [facility] GLUCOSE,BLOOD-poct (STL) Specimen Type: BLOOD Comment: Test Performed by: [id number] Meter #: [id number] Ordering Provider: SILVIA REDDY Report Released Date/Time: Aug 21, 2024 05:27 AM Reporting Lab: [facility] #1 [facility] [address] Performing Lab: [facility] #1 [facility] [address] GLUCOSE,BLOOD- poct (STL) 118 mg/dL H 72-Aug 20, 2024 04:38 PM [facility] GLUCOSE,BLOOD-poct (STL) Specimen Type: BLOOD Comment: Test Performed by: [id number] Meter #: [id number] Ordering Provider: SILVIA REDDY Report Released Date/Time: Aug 21, 2024 01:55 AM Reporting Lab: [facility] #1 [facility] [address] Performing Lab: [facility] #1 [place] [address] GLUCOSE,BLOOD- poct (STL) 169 mg/dL H -Aug 20, 2024 04:36 PM [facility] GLUCOSE,BLOOD-poct (STL) Specimen Type: BLOOD Comment: Test Performed by: [id number] Meter #: [id number] Ordering Provider: SILVIA REDDY Report Released Date/Time: Aug 21, 2024 01:55 AM Reporting Lab: [facility] #1 [facility] [address] Performing Lab: [facility] #1 [facility] [address] GLUCOSE,BLOOD- poct (STL) 395 mg/dL H 72-Aug 20, 2024 11:45 AM [facility] GLUCOSE,BLOOD-poct (STL) Specimen Type: BLOOD Comment: Test Performed by: [id number] Meter #: [id number] Ordering Provider: SILVIA REDDY Report Released Date/Time: Aug 20, 2024 11:56 AM Reporting Lab: [facility] #1 [place] [address] Performing Lab: [facility]1 [facility] [address] GLUCOSE,BLOOD- poct (STL) 169 mg/dL H -Aug 20, 2024 05:06 AM [facility] GLUCOSE,BLOOD-poct (STL) Specimen Type: BLOOD Comment: Test Performed by: [id number] Meter #: [id number] Ordering Provider: SILVIA REDDY Report Released Date/Time: Aug 20, 2024 06:05 AM Reporting Lab: [facility]1 [facility] [address] Performing Lab: [facility] #1 [facility] [address] GLUCOSE,BLOOD- poct (STL) 115 mg/dL H -Aug 19, 2024 04:23 PM [facility] GLUCOSE,BLOOD-poct (STL) Specimen Type: BLOOD Comment: Test Performed by: [id number] Meter #: [id number] Ordering Provider: SILVIA REDDY Report Released Date/Time: Aug 19, 2024 05:54 PM Reporting Lab: [facility]1 [facility] [address] Performing Lab: [facility]1 [facility] [address] GLUCOSE,BLOOD- poct (STL) 137 mg/dL H -Aug 19, 2024 11:28 AM [facility] GLUCOSE,BLOOD-poct (STL) Specimen Type: BLOOD Comment: Test Performed by: [id number] Meter #: [id number] Ordering Provider: SILVIA REDDY Report Released Date/Time: Aug 19, 2024 11:51 AM Reporting Lab: [facility]1 [facility] [address] Performing Lab: [facility]1 [facility] [address] GLUCOSE,BLOOD- poct (STL) 190 mg/dL H Aug 19, 2024 05:21 AM [facility] GLUCOSE,BLOOD-poct (STL) Specimen Type: BLOOD Comment: Test Performed by: [id number] Meter #: [id number] Ordering Provider: SILVIA REDDY Report Released Date/Time: Aug 19, 2024 05:56 AM Reporting Lab: [facility] #1 [facility] [address] Performing Lab: [facility] #1 [facility] [address] GLUCOSE,BLOOD- poct (STL) 130 mg/dL H Aug 18, 2024 04:49 PM [facility] GLUCOSE,BLOOD-poct (STL) Specimen Type: BLOOD Comment: Test Performed by: [id number] Meter #: [id number] Ordering Provider: SILVIA REDDY Report Released Date/Time: Aug 18, 2024 05:01 PM Reporting Lab: [facility]1 [facility] [address] Performing Lab: [facility] #1 [facility] [address] GLUCOSE,BLOOD- poct (STL) 129 mg/dL H Aug 18, 2024 11:23 AM [facility] GLUCOSE,BLOOD-poct (STL) Specimen Type: BLOOD Comment: Test Performed by: [id number] Meter #: [id number] Ordering Provider: SILVIA REDDY Report Released Date/Time: Aug 18, 2024 11:41 AM Reporting Lab: [facility] #1 [facility] [address] Performing Lab: [facility] #1 [facility] [address] GLUCOSE,BLOOD- poct (STL) 180 mg/dL H Aug 18, 2024 05:08 AM [facility] GLUCOSE,BLOOD-poct (STL) Specimen Type: BLOOD Comment: Test Performed by: [id number] Meter #: [id number] Ordering Provider: SILVIA REDDY Report Released Date/Time: Aug 18, 2024 05:31 AM Reporting Lab: [facility]1 [facility] [address] Performing Lab: [facility] #1 [facility] [address] GLUCOSE,BLOOD- poct (STL) 127 mg/dL H -Aug 17, 2024 07:32 PM [facility] GLUCOSE,BLOOD-poct (STL) Specimen Type: BLOOD Comment: Test Performed by: [id number] Meter #: [id number] Ordering Provider: SILVIA REDDY Report Released Date/Time: Aug 17, 2024 07:59 PM Reporting Lab: [facility] #1 [facility] [address] Performing Lab: [facility] #1 [facility] [address] GLUCOSE,BLOOD- poct (STL) 154 mg/dL H -Aug 17, 2024 04:24 PM [facility] GLUCOSE,BLOOD-poct (STL) Specimen Type: BLOOD Comment: Test Performed by: [id number] Meter #: [id number] Ordering Provider: SILVIA REDDY Report Released Date/Time: Aug 17, 2024 04:35 PM Reporting Lab: [facility] #1 [facility] [address] Performing Lab: [facility]1 [facility] [address] GLUCOSE,BLOOD- poct (STL) 178 mg/dL H -Aug 17, 2024 05:09 AM [facility] GLUCOSE,BLOOD-poct (STL) Specimen Type: BLOOD Comment: Test Performed by: [id number] Meter #: [id number] Ordering Provider: SILVIA REDDY Report Released Date/Time: Aug 17, 2024 05:54 AM Reporting Lab: [facility] #1 [place] [address] Performing Lab: [facility]1 [facility] [address] GLUCOSE,BLOOD- poct (STL) 124 mg/dL H -Aug 16, 2024 07:40 PM [facility] GLUCOSE,BLOOD-poct (STL) Specimen Type: BLOOD Comment: Test Performed by: [id number] Meter #: [id number] Ordering Provider: SILVIA REDDY Report Released Date/Time: Aug 16, 2024 08:28 PM Reporting Lab: [facility]1 [facility] [address] Performing Lab: [facility] #1 [facility] [address] GLUCOSE,BLOOD- poct (STL) 144 mg/dL H Aug 16, 2024 04:19 PM [facility] GLUCOSE,BLOOD-poct (STL) Specimen Type: BLOOD Comment: Test Performed by: [id number] Meter #: [id number] Ordering Provider: SILVIA REDDY Report Released Date/Time: Aug 16, 2024 04:45 PM Reporting Lab: [facility] #1 [facility] [address] Performing Lab: [facility] #1 [facility] [address] GLUCOSE,BLOOD- poct (STL) 138 mg/dL H Aug 16, 2024 11:52 AM [facility] GLUCOSE,BLOOD-poct (STL) Specimen Type: BLOOD Comment: Test Performed by: [id number] Meter #: [id number] Ordering Provider: SILVIA REDDY Report Released Date/Time: Aug 16, 2024 12:04 PM Reporting Lab: [facility]1 [facility] [address] Performing Lab: [facility]1 [facility] [address] GLUCOSE,BLOOD- poct (STL) 135 mg/dL H Aug 16, 2024 05:24 AM [facility] GLUCOSE,BLOOD-poct (STL) Specimen Type: BLOOD Comment: Test Performed by: [id number] Meter #: [id number] Ordering Provider: SILVIA REDDY Report Released Date/Time: Aug 16, 2024 05:38 AM Reporting Lab: [facility] #1 [facility] [address] Performing Lab: [facility] #1 [facility] [address] GLUCOSE,BLOOD- poct (STL) 151 mg/dL H Aug 15, 2024 07:31 PM [facility] GLUCOSE,BLOOD-poct (STL) Specimen Type: BLOOD Comment: Test Performed by: [id number] Meter #: [id number] Ordering Provider: SILVIA REDDY Report Released Date/Time: Aug 15, 2024 08:07 PM Reporting Lab: [facility]1 [facility] [address] Performing Lab: [facility] #1 [facility] [address] GLUCOSE,BLOOD- poct (STL) 173 mg/dL H Aug 15, 2024 04:18 PM [facility] GLUCOSE,BLOOD-poct (STL) Specimen Type: BLOOD Comment: Test Performed by: [id number] Meter #: [id number] Ordering Provider: SILVIA REDDY Report Released Date/Time: Aug 15, 2024 04:59 PM Reporting Lab: [facility] #1 [facility] [address] Performing Lab: [facility] #1 [facility] [address] GLUCOSE,BLOOD- poct (STL) 136 mg/dL H Aug 15, 2024 04:16 PM [facility] GLUCOSE,BLOOD-poct (STL) Specimen Type: BLOOD Comment: Test Performed by: [id number] Meter #: [id number] Ordering Provider: SILVIA REDDY Report Released Date/Time: Aug 15, 2024 04:59 PM Reporting Lab: [facility] #1 [facility] [address] Performing Lab: [facility] #1 [facility] [address] GLUCOSE,BLOOD- poct (STL) 194 mg/dL H -Aug 15, 2024 11:39 AM [facility] GLUCOSE,BLOOD-poct (STL) Specimen Type: BLOOD Comment: Test Performed by: [id number] Meter #: [id number] Ordering Provider: SILVIA REDDY Report Released Date/Time: Aug 15, 2024 12:00 PM Reporting Lab: [facility] #1 [facility] [address] Performing Lab: [facility] [address] GLUCOSE,BLOOD- poct (STL) 127 mg/dL H -Aug 15, 2024 05:07 AM [facility] GLUCOSE,BLOOD-poct (STL) Specimen Type: BLOOD Comment: Test Performed by: [id number] Meter #: [id number] Ordering Provider: SILVIA REDDY Report Released Date/Time: Aug 15, 2024 06:14 AM Reporting Lab: [facility] #1 [facility] [address] Performing Lab: [facility] #1 [facility] [address] GLUCOSE,BLOOD- poct (STL) 151 mg/dL H -Aug 14, 2024 04:22 PM [facility] GLUCOSE,BLOOD-poct (STL) Specimen Type: BLOOD Comment: Test Performed by: [id number] Meter #: [id number] Ordering Provider: SILVIA REDDY Report Released Date/Time: Aug 14, 2024 04:52 PM Reporting Lab: [facility] #1 [place] [address] Performing Lab: [facility] [address] GLUCOSE,BLOOD- poct (STL) 129 mg/dL H 72-99 Aug 14, 2024 11:21 AM [facility] GLUCOSE,BLOOD-poct (STL) Specimen Type: BLOOD Comment: Test Performed by: [id number] Meter #: [id number] Ordering Provider: SILVIA REDDY Report Released Date/Time: Aug 14, 2024 11:37 AM Reporting Lab: [facility]1 [facility] [address] Performing Lab: [facility]1 [facility] [address] GLUCOSE,BLOOD- poct (STL) 135 mg/dL H 72-99 Aug 14, 2024 06:59 AM [facility] QUANTIFERON-TB,4 TUBE Specimen Type: BLOOD [...] For additional information, please refer to http://education. Inkvite/faq/BSL483 (This link is being provided for information/ educational purposes only.) Test Performed by [employer], [employer] [facility], [address] [place] [address] Tommie Garcia M.D., Ph.D., Director of Laboratories , [facility] [id number] Ordering Provider: SILVIA REDDY Report Released Date/Time: Aug 11, 2024 03:58 PM Reporting Lab: [facility] [address] [facility] [address] Performing Lab: [facility] [id number] [place] [address] .NIL - QUANTIFERON 0.04 [IU]/mL .MITOGEN-NIL 0.39 [IU]/mL .QUANTIFERON INDETERMINATE NEGATIVE .TB1-NIL <0.00 [IU]/mL .TB2-NIL <0.00 [IU]/mL Aug 14, 2024 06:59 AM [facility] MAGNESIUM Specimen Type: PLASMA Comment: No hemolysis noted. Ordering Provider: SILVIA REDDY Report Released Date/Time: Aug 11, 2024 03:58 PM Reporting Lab: [facility]1 [facility] [address] Performing Lab: [facility]1 [facility] [address] MAGNESIUM 1.9 mg/dL 1.6-2.6 Aug 14, 2024 06:59 AM [facility] B12 Specimen Type: SERUM No comment entered. Ordering Provider: SILVIA REDDY Report Released Date/Time: Aug 11, 2024 03:58 PM Reporting Lab: [facility]1 [facility] [address] Performing Lab: [facility] [id number] B12 757 pg/mL 213-816 Aug 14, 2024 06:59 AM [facility] FOLATE ([facility]) Specimen Type: SERUM No comment entered. Ordering Provider: SILVIA REDDY Report Released Date/Time: Aug 11, 2024 03:58 PM Reporting Lab: [facility] [place] [id number] Performing Lab: [facility] [id number] FOLATE ([facility]) 6.8 ng/mL L 7-20 Aug 14, 2024 06:59 AM [facility] VITAMIN D, 25-HYDROXY Specimen Type: SERUM No comment entered. Ordering Provider: SILVIA REDDY Report Released Date/Time: Aug 11, 2024 03:58 PM Reporting Lab: [facility] [place] [id number] Performing Lab: [facility] [place] [id number] VITAMIN D, 25-HYDROXY 8.9 ng/mL L 30-96 Aug 14, 2024 06:59 AM [facility] COMPREHENSIVE METABOLIC PANEL Specimen Type: PLASMA Comment: No hemolysis noted. Ordering Provider: SILVIA REDDY Report Released Date/Time: Aug 11, 2024 03:58 PM Reporting Lab: [facility] [place] [id number] Performing Lab: [facility] [place] [id number] CREATININE 0.75 mg/dL 0.70-1.30 UREA NITROGEN 13.6 [...] 95.88 >60 Aug 14, 2024 06:59 AM [facility] CBC Specimen Type: BLOOD No comment entered. Ordering Provider: SILVIA REDDY Report Released Date/Time: Aug 11, 2024 03:58 PM Reporting Lab: [facility] [address] Performing Lab: [facility] [address] WBC 4.1 10*3/uL 3.6-11.2 RBC 3.20 10*6/uL [...] 10*3/uL 0.00-0.20 Aug 14, 2024 05:08 AM [facility] GLUCOSE,BLOOD-poct (STL) Specimen Type: BLOOD Comment: Test Performed by: [id number] Meter #: [id number] Ordering Provider: SILVIA REDDY Report Released Date/Time: Aug 14, 2024 05:52 AM Reporting Lab: [facility] [address] Performing Lab: [facility] [address] GLUCOSE,BLOOD- poct (STL) 135 mg/dL H 72-99 Aug 13, 2024 04:27 PM [facility] GLUCOSE,BLOOD-poct (STL) Specimen Type: BLOOD Comment: Test Performed by: [id number] Meter #: [id number] Ordering Provider: SILVIA REDDY Report Released Date/Time: Aug 13, 2024 04:41 PM Reporting Lab: [facility] #1 [facility] [address] Performing Lab: [facility] [address] GLUCOSE,BLOOD- poct (STL) 181 mg/dL H -Aug 13, 2024 11:33 AM [facility] GLUCOSE,BLOOD-poct (STL) Specimen Type: BLOOD Comment: Test Performed by: [id number] Meter #: [id number] Ordering Provider: SILVIA REDDY Report Released Date/Time: Aug 13, 2024 03:55 PM Reporting Lab: [facility] [address] Performing Lab: [facility] [place] [address] GLUCOSE,BLOOD- poct (STL) 140 mg/dL H Aug 13, 2024 05:54 AM [facility] GLUCOSE,BLOOD-poct (STL) Specimen Type: BLOOD Comment: Test Performed by: [id number] Meter #: [id number] Ordering Provider: SILVIA REDDY Report Released Date/Time: Aug 13, 2024 06:20 AM Reporting Lab: [facility] [address] Performing Lab: [facility] [address] GLUCOSE,BLOOD- poct (STL) 112 mg/dL H Aug 12, 2024 04:35 PM [facility] GLUCOSE,BLOOD-poct (STL) Specimen Type: BLOOD Comment: Test Performed by: [id number] Meter #: [id number] Ordering Provider: SILVIA REDDY Report Released Date/Time: Aug 12, 2024 04:47 PM Reporting Lab: [facility]1 [facility] [address] Performing Lab: [facility] #1 [facility] [address] GLUCOSE,BLOOD- poct (STL) 128 mg/dL H 72-99 Aug 12, 2024 11:26 AM [facility] GLUCOSE,BLOOD-poct (STL) Specimen Type: BLOOD Comment: Test Performed by: [id number] Meter #: [id number] Ordering Provider: SILVIA REDDY Report Released Date/Time: Aug 12, 2024 11:45 AM Reporting Lab: [facility] #1 [facility] [address] Performing Lab: [facility]1 [facility] [address] GLUCOSE,BLOOD- poct (STL) 188 mg/dL H 72-Aug 12, 2024 06:13 AM [facility] GLUCOSE,BLOOD-poct (STL) Specimen Type: BLOOD Comment: Test Performed by: [id number] Meter #: [id number] Ordering Provider: SILVIA REDDY Report Released Date/Time: Aug 12, 2024 06:25 AM Reporting Lab: [facility]1 [facility] [address] Performing Lab: [facility] #1 [facility] [address] GLUCOSE,BLOOD- poct (STL) 116 mg/dL H 72-99 Aug 11, 2024 04:10 PM [facility] GLUCOSE,BLOOD-poct (STL) Specimen Type: BLOOD Comment: Test Performed by: [id number] Meter #: [id number] Ordering Provider: SILVIA REDDY Report Released Date/Time: Aug 11, 2024 04:27 PM Reporting Lab: [facility] #1 [place] [address] Performing Lab: [facility] [address] GLUCOSE,BLOOD- poct (STL) 184 mg/dL H 72-99 [...] 11, 2024 02:03 PM Reporting Lab: [address] [address] Performing Lab: [address] [address] MRSA SURVL NARES DNA Negative Negative Jul 20, 2024 11:18 AM [facility] APTT Specimen Type: PLASMA No comment entered. Ordering Provider: MANUEL BAIRD Report Released Date/Time: Jul 19, 2024 04:00 PM Reporting Lab: [address] [address] Performing Lab: [address] [address] APTT 32.1 s 26.7-39.9 Jul 20, 2024 11:18 AM [facility] PT/INR NEW (L-SC) Specimen Type: PLASMA No comment entered. Ordering Provider: MANUEL BAIRD Report Released Date/Time: Jul 19, 2024 04:00 PM Reporting Lab: [address] [address] Performing Lab: [address] [address] PROTIME 14.4 s H 9.4-12.5 INR VALUE 1.3 {INR} Jul 20, 2024 11:18 AM [facility] CBC Specimen Type: BLOOD No comment entered. Ordering Provider: MANUEL BAIRD Report Released Date/Time: Jul 19, 2024 04:00 PM Reporting Lab: [facility] [address] [facility] [address] Performing Lab: [facility] [address] [facility] [address] WBC 4.7 10*3/uL 3.6-11.2 RBC 4.86 10*6/uL [...] PM 98.1 75 101/61 18 95 0 [facility] Aug 16, 2024 09:51 AM 97.7 80 136/85 18 94 [facility] Aug 16, 2024 05:35 AM 97.1 86 96/60 18 92 0 [facility] N [...] ADVANCE DIRECTIVE DISCUSSION ERICK BARDALES [facility]
--- OUTSIDE RECORDS SUMMARY | 2024-11-17 04:15 | XMS_ITS ---
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 Date/Time Encounter Type Encounter Description Reason Pro vider Source Aug 17, 2024 03:30 PM Inpatient Visit DAILY HOSPITALIZATION DATA [facility] Encounter Template Text not used by [place] [...] appointments. The data comes from all [facility]. Appointment Date/Time Appointment Type Appointme nt Facility Name Aug 24, 2024 10:00 AM AMBULATORY - MEDICINE [facility] Aug 24, 2024 10:30 AM AMBULATORY - MEDICINE [facility] Aug 30, 2024 09:30 AM AMBULATORY MEDICINE [facility] Aug 31, 2024 01:00 PM AMBULATORY - SURGERY [facility] Sep 21, 2024 01:30 [...] 10:30 AM AMBULATORY - SURGERY [facility] Nov 21, 2024 10:00 AM AMBULATORY - NONE [facility] Dec 11, 2024 10:30 AM AMBULATORY - MEDICINE [facility] Active, Pending, and Scheduled [...] theEncounter. The data comes from all [facility]. Test Date/Time Test Type Test Details Facility Name Aug 02, 2024 12:00 AM Laboratory - Chemistry Order CBC BLOOD STAT SP [facility] Aug 02, 2024 12:00 AM Laboratory - Chemistry Order COMPREHENSIVE METABOLIC PANEL GREEN LI/HEP BLD/PLAS PLASMA SP [facility] Aug 17, 2024 03:47 PM Consult Order [facility] Cons Bedside [facility] Lab Results: [...] 08:[address] [facility] MAGNESIUM Specimen Type: PLASMA No comment entered. Ordering Provider: SILVIA REDDY Report Released Date/Time: Aug 22, 2024 11:26 AM Reporting Lab: [facility] [address] Performing Lab: [facility] [address] MAGNESIUM 1.8 mg/dL 1.6-2.6 Aug 23, 2024 08:[address] [facility] CBC Specimen Type: BLOOD No comment entered. Ordering Provider: SILVIA REDDY Report Released Date/Time: Aug 22, 2024 11:19 AM Reporting Lab: [facility] [address] Performing Lab: [facility] [address] WBC 4.0 10*3/uL 3.6-11.2 RBC 3.65 10*6/uL [...] 10*3/uL 0.00-0.20 Aug 23, 2024 05:[address] [facility] GLUCOSE,BLOOD-poct (STL) Specimen Type: BLOOD Comment: Test Performed by: [id number] Meter #: [id number] Ordering Provider: SILVIA REDDY Report Released Date/Time: Aug 23, 2024 05:23 AM Reporting Lab: [facility] [address] Performing Lab: [facility] [address] GLUCOSE,BLOOD- poct (STL) 99 mg/dL 72-99 Aug 23, 2024 02:[address] [facility] OCCULT BLOOD FIT X1 SCREEN Specimen Type: FECES No comment entered. Ordering Provider: SILVIA REDDY Report Released Date/Time: Aug 22, 2024 11:23 AM Reporting Lab: [address] [address] Performing Lab: [address] [address] OCCULT BLOOD (FIT) #1 OF 1 Negative Negative Aug 22, 2024 07:[address] [facility] OCCULT BLOOD FIT X1 SCREEN Specimen Type: FECES No comment entered. Ordering Provider: SILVIA REDDY Report Released Date/Time: Aug 22, 2024 11:23 AM Reporting Lab: [address] [address] Performing Lab: [address] [address] OCCULT BLOOD (FIT) #1 OF 1 Negative Negative Aug 22, 2024 06:[address] [facility] OCCULT BLOOD FIT X1 SCREEN Specimen Type: FECES No comment entered. Ordering Provider: SILVIA REDDY Report Released Date/Time: Aug 22, 2024 11:23 AM Reporting Lab: [address] [address] Performing Lab: [facility] [address] [facility] [address] OCCULT BLOOD (FIT) #1 OF 1 Negative Negative Aug 22, 2024 04:[address] [facility] GLUCOSE,BLOOD-poct (STL) Specimen Type: BLOOD Comment: Test Performed by: [id number] Meter #: [id number] Ordering Provider: SILVIA REDDY Report Released Date/Time: Aug 22, 2024 04:36 PM Reporting Lab: [facility] [address] Performing Lab: [facility] [address] GLUCOSE,BLOOD- poct (STL) 176 mg/dL H -Aug 22, 2024 04:[address] [facility] GLUCOSE,BLOOD-poct (STL) Specimen Type: BLOOD Comment: Test Performed by: [id number] Meter #: [id number] Ordering Provider: SILVIA REDDY Report Released Date/Time: Aug 22, 2024 04:36 PM Reporting Lab: [facility] [address] Performing Lab: [facility] [address] GLUCOSE,BLOOD- poct (STL) 221 mg/dL H 72-Aug 22, 2024 11:[address] [facility] GLUCOSE,BLOOD-poct (STL) Specimen Type: BLOOD Comment: Test Performed by: [id number] Meter #: [id number] Ordering Provider: SILVIA REDDY Report Released Date/Time: Aug 22, 2024 11:27 AM Reporting Lab: [facility] [address] Performing Lab: [facility] [address] GLUCOSE,BLOOD- poct (STL) 140 mg/dL H 72-Aug 22, 2024 08:[address] [facility] FERRITIN Specimen Type: SERUM No comment entered. Ordering Provider: JUDIT PERKINS Report Released Date/Time: Aug 18, 2024 11:01 AM Reporting Lab: [facility] [address] [facility] [address] Performing Lab: [facility] [address] [facility] [address] FERRITIN 79.50 ng/mL 22-275 Aug 22, 2024 08:[address] [facility] B12 Specimen Type: SERUM No comment entered. Ordering Provider: JUDIT PERKINS Report Released Date/Time: Aug 18, 2024 11:01 AM Reporting Lab: [facility] [address] Performing Lab: [facility] [address] B12 631 pg/mL 213-816 Aug 22, 2024 08:[address] [facility] IRON/TIBC PROFILE Specimen Type: SERUM No comment entered. Ordering Provider: JUDIT PERKINS Report Released Date/Time: Aug 18, 2024 11:01 AM Reporting Lab: [place] [address] [facility] [address] Performing Lab: [address] [address] TIBC 283 ug/dL 250-450 TRANSFERRIN 226 mg/dL 163-344 IRON SATURATION 7 L 20-50 IRON 19 ug/dL L 65-175 Aug 22, 2024 08:[address] [facility] COMPREHENSIVE METABOLIC PANEL Specimen Type: PLASMA Comment: No hemolysis noted. Ordering Provider: SILVIA REDDY Report Released Date/Time: Aug 17, 2024 01:18 PM Reporting Lab: [facility] [address] [facility] [address] Performing Lab: [address] [address] CREATININE 0.80 mg/dL 0.7-1.3 UREA NITROGEN 9.7 [...] >60 Aug 22, 2024 08:03 AM [facility] CBC Specimen Type: BLOOD No comment entered. Ordering Provider: SILVIA REDDY Report Released Date/Time: Aug 17, 2024 01:18 PM Reporting Lab: [facility] [address] Performing Lab: [facility] [address] WBC 3.5 10*3/uL L 3.6-11.2 RBC 3.23 [...] 0 Aug 22, 2024 05:[address] [facility] GLUCOSE,BLOOD-poct (STL) Specimen Type: BLOOD Comment: Test Performed by: [id number] Meter #: [id number] Ordering Provider: SILVIA REDDY Report Released Date/Time: Aug 22, 2024 06:17 AM Reporting Lab: [facility] [address] Performing Lab: [facility] [address] GLUCOSE,BLOOD- poct (STL) 170 mg/dL H 72-Aug 21, 2024 04:[address] [facility] GLUCOSE,BLOOD-poct (STL) Specimen Type: BLOOD Comment: Test Performed by: [id number] Meter #: [id number] Ordering Provider: SILVIA REDDY Report Released Date/Time: Aug 21, 2024 04:49 PM Reporting Lab: [facility] [address] Performing Lab: [facility] [address] GLUCOSE,BLOOD- poct (STL) 169 mg/dL H -99 Aug 21, 2024 11:[address] [facility] GLUCOSE,BLOOD-poct (STL) Specimen Type: BLOOD Comment: Test Performed by: [id number] Meter #: [id number] Ordering Provider: SILVIA REDDY Report Released Date/Time: Aug 21, 2024 12:11 PM Reporting Lab: [facility] [address] Performing Lab: [facility] [address] GLUCOSE,BLOOD- poct (STL) 149 mg/dL H 72-99 Aug 21, 2024 05:[address] [facility] GLUCOSE,BLOOD-poct (STL) Specimen Type: BLOOD Comment: Test Performed by: [id number] Meter #: [id number] Ordering Provider: SILVIA REDDY Report Released Date/Time: Aug 21, 2024 05:27 AM Reporting Lab: [facility] [place] [address] Performing Lab: [facility] [place] [id number] GLUCOSE,BLOOD- poct (STL) 118 mg/dL H 72-99 Aug 20, 2024 04:[address] [facility] GLUCOSE,BLOOD-poct (STL) Specimen Type: BLOOD Comment: Test Performed by: [id number] Meter #: [id number] Ordering Provider: SILVIA REDDY Report Released Date/Time: Aug 21, 2024 01:55 AM Reporting Lab: [facility] [place] [address] Performing Lab: [facility] [place] [address] GLUCOSE,BLOOD- poct (STL) 169 mg/dL H 72-Aug 20, 2024 04:[address] [facility] GLUCOSE,BLOOD-poct (STL) Specimen Type: BLOOD Comment: Test Performed by: [id number] Meter #: [id number] Ordering Provider: SILVIA REDDY Report Released Date/Time: Aug 21, 2024 01:55 AM Reporting Lab: [facility] [place] [address] Performing Lab: [facility] [place] [address] GLUCOSE,BLOOD- poct (STL) 395 mg/dL H 72-99 Aug 20, 2024 11:[address] [facility] GLUCOSE,BLOOD-poct (STL) Specimen Type: BLOOD Comment: Test Performed by: [id number] Meter #: [id number] Ordering Provider: SILVIA REDDY Report Released Date/Time: Aug 20, 2024 11:56 AM Reporting Lab: [facility] [address] Performing Lab: [facility] [address] GLUCOSE,BLOOD- poct (STL) 169 mg/dL H 72-Aug 20, 2024 05:[address] [facility] GLUCOSE,BLOOD-poct (STL) Specimen Type: BLOOD Comment: Test Performed by: [id number] Meter #: [id number] Ordering Provider: SILVIA REDDY Report Released Date/Time: Aug 20, 2024 06:05 AM Reporting Lab: [facility] [address] Performing Lab: [facility] [address] GLUCOSE,BLOOD- poct (STL) 115 mg/dL H 72-Aug 19, 2024 04:[address] [facility] GLUCOSE,BLOOD-poct (STL) Specimen Type: BLOOD Comment: Test Performed by: [id number] Meter #: [id number] Ordering Provider: SILVIA REDDY Report Released Date/Time: Aug 19, 2024 05:54 PM Reporting Lab: [facility] [address] Performing Lab: [facility] [address] GLUCOSE,BLOOD- poct (STL) 137 mg/dL H 72-99 Aug 19, 2024 11:[address] [facility] GLUCOSE,BLOOD-poct (STL) Specimen Type: BLOOD Comment: Test Performed by: [id number] Meter #: [id number] Ordering Provider: SILVIA REDDY Report Released Date/Time: Aug 19, 2024 11:51 AM Reporting Lab: [facility] [address] Performing Lab: [facility] [address] GLUCOSE,BLOOD- poct (STL) 190 mg/dL H 72-99 Aug 19, 2024 05:[address] [facility] GLUCOSE,BLOOD-poct (STL) Specimen Type: BLOOD Comment: Test Performed by: [id number] Meter #: [id number] Ordering Provider: SILVIA REDDY Report Released Date/Time: Aug 19, 2024 05:56 AM Reporting Lab: [facility] [address] Performing Lab: [facility] [address] GLUCOSE,BLOOD- poct (STL) 130 mg/dL H Aug 18, 2024 04:[address] [facility] GLUCOSE,BLOOD-poct (STL) Specimen Type: BLOOD Comment: Test Performed by: [id number] Meter #: [id number] Ordering Provider: SILVIA REDDY Report Released Date/Time: Aug 18, 2024 05:01 PM Reporting Lab: [facility] [address] Performing Lab: [facility] [address] GLUCOSE,BLOOD- poct (STL) 129 mg/dL H Aug 18, 2024 11:[address] [facility] GLUCOSE,BLOOD-poct (STL) Specimen Type: BLOOD Comment: Test Performed by: [id number] Meter #: [id number] Ordering Provider: SILVIA REDDY Report Released Date/Time: Aug 18, 2024 11:41 AM Reporting Lab: [facility] [address] Performing Lab: [facility] [address] GLUCOSE,BLOOD- poct (STL) 180 mg/dL H Aug 18, 2024 05:[address] [facility] GLUCOSE,BLOOD-poct (STL) Specimen Type: BLOOD Comment: Test Performed by: [id number] Meter #: [id number] Ordering Provider: SILVIA REDDY Report Released Date/Time: Aug 18, 2024 05:31 AM Reporting Lab: [facility] [place] [address] Performing Lab: [facility] [address] GLUCOSE,BLOOD- poct (STL) 127 mg/dL H -Aug 17, 2024 07:[address] [facility] GLUCOSE,BLOOD-poct (STL) Specimen Type: BLOOD Comment: Test Performed by: [id number] Meter #: [id number] Ordering Provider: SILVIA REDDY Report Released Date/Time: Aug 17, 2024 07:59 PM Reporting Lab: [facility] [place] [address] Performing Lab: [facility] [place] [address] GLUCOSE,BLOOD- poct (STL) 154 mg/dL H -Aug 17, 2024 04:[address] [facility] GLUCOSE,BLOOD-poct (STL) Specimen Type: BLOOD Comment: Test Performed by: [id number] Meter #: [id number] Ordering Provider: SILVIA REDDY Report Released Date/Time: Aug 17, 2024 04:35 PM Reporting Lab: [facility] [place] [address] Performing Lab: [facility] [place] [address] GLUCOSE,BLOOD- poct (STL) 178 mg/dL H -Aug 17, 2024 05:[address] [facility] GLUCOSE,BLOOD-poct (STL) Specimen Type: BLOOD Comment: Test Performed by: [id number] Meter #: [id number] Ordering Provider: SILVIA REDDY Report Released Date/Time: Aug 17, 2024 05:54 AM Reporting Lab: [facility] [address] Performing Lab: [facility] [address] GLUCOSE,BLOOD- poct (STL) 124 mg/dL H 72-Aug 16, 2024 07:[address] [facility] GLUCOSE,BLOOD-poct (STL) Specimen Type: BLOOD Comment: Test Performed by: [id number] Meter #: [id number] Ordering Provider: SILVIA REDDY Report Released Date/Time: Aug 16, 2024 08:28 PM Reporting Lab: [facility] [address] Performing Lab: [facility] [address] GLUCOSE,BLOOD- poct (STL) 144 mg/dL H -Aug 16, 2024 04:[address] [facility] GLUCOSE,BLOOD-poct (STL) Specimen Type: BLOOD Comment: Test Performed by: [id number] Meter #: [id number] Ordering Provider: SILVIA REDDY Report Released Date/Time: Aug 16, 2024 04:45 PM Reporting Lab: [facility] [address] Performing Lab: [facility] [address] GLUCOSE,BLOOD- poct (STL) 138 mg/dL H 72-Aug 16, 2024 11:[address] [facility] GLUCOSE,BLOOD-poct (STL) Specimen Type: BLOOD Comment: Test Performed by: [id number] Meter #: [id number] Ordering Provider: SILVIA REDDY Report Released Date/Time: Aug 16, 2024 12:04 PM Reporting Lab: [facility] [address] Performing Lab: [facility] [address] GLUCOSE,BLOOD- poct (STL) 135 mg/dL H 72-99 Aug 16, 2024 05:[address] [facility] GLUCOSE,BLOOD-poct (STL) Specimen Type: BLOOD Comment: Test Performed by: [id number] Meter #: [id number] Ordering Provider: SILVIA REDDY Report Released Date/Time: Aug 16, 2024 05:38 AM Reporting Lab: [facility] [address] Performing Lab: [facility] [address] GLUCOSE,BLOOD- poct (STL) 151 mg/dL H Aug 15, 2024 07:[address] [facility] GLUCOSE,BLOOD-poct (STL) Specimen Type: BLOOD Comment: Test Performed by: [id number] Meter #: [id number] Ordering Provider: SILVIA REDDY Report Released Date/Time: Aug 15, 2024 08:07 PM Reporting Lab: [facility] [address] Performing Lab: [facility] [address] GLUCOSE,BLOOD- poct (STL) 173 mg/dL H Aug 15, 2024 04:[address] [facility] GLUCOSE,BLOOD-poct (STL) Specimen Type: BLOOD Comment: Test Performed by: [id number] Meter #: [id number] Ordering Provider: SILVIA REDDY Report Released Date/Time: Aug 15, 2024 04:59 PM Reporting Lab: [facility] [address] Performing Lab: [facility] [address] GLUCOSE,BLOOD- poct (STL) 136 mg/dL H Aug 15, 2024 04:[address] [facility] GLUCOSE,BLOOD-poct (STL) Specimen Type: BLOOD Comment: Test Performed by: [id number] Meter #: [id number] Ordering Provider: SILVIA REDDY Report Released Date/Time: Aug 15, 2024 04:59 PM Reporting Lab: [facility] [place] [address] Performing Lab: [facility] [address] GLUCOSE,BLOOD- poct (STL) 194 mg/dL H 72-Aug 15, 2024 11:[address] [facility] GLUCOSE,BLOOD-poct (STL) Specimen Type: BLOOD Comment: Test Performed by: [id number] Meter #: [id number] Ordering Provider: SILVIA REDDY Report Released Date/Time: Aug 15, 2024 12:00 PM Reporting Lab: [facility] [place] [address] Performing Lab: [facility] [place] [address] GLUCOSE,BLOOD- poct (STL) 127 mg/dL H -Aug 15, 2024 05:[address] [facility] GLUCOSE,BLOOD-poct (STL) Specimen Type: BLOOD Comment: Test Performed by: [id number] Meter #: [id number] Ordering Provider: SILVIA REDDY Report Released Date/Time: Aug 15, 2024 06:14 AM Reporting Lab: [facility] [place] [address] Performing Lab: [facility] [place] [address] GLUCOSE,BLOOD- poct (STL) 151 mg/dL H -Aug 14, 2024 04:[address] [facility] GLUCOSE,BLOOD-poct (STL) Specimen Type: BLOOD Comment: Test Performed by: [id number] Meter #: [id number] Ordering Provider: SILVIA REDDY Report Released Date/Time: Aug 14, 2024 04:52 PM Reporting Lab: [facility] [address] Performing Lab: [facility] [address] GLUCOSE,BLOOD- poct (STL) 129 mg/dL H 72-99 Aug 14, 2024 11:[address] [facility] GLUCOSE,BLOOD-poct (STL) Specimen Type: BLOOD Comment: Test Performed by: [id number] Meter #: [id number] Ordering Provider: SILVIA REDDY Report Released Date/Time: Aug 14, 2024 11:37 AM Reporting Lab: [facility] [address] Performing Lab: [facility] [address] GLUCOSE,BLOOD- poct (STL) 135 mg/dL H 72-Aug 14, 2024 06:[address] [facility] QUANTIFERON-TB,4 TUBE Specimen Type: [...] For additional information, please refer to [email or web address] (This link is being provided for information/ educational purposes only.) Test Performed by [employer], [employer] ([employer]) [facility], [address] [place] [address] Tommie Garcia M.D., Ph.D., Director of Laboratories , [facility] [id number] Ordering Provider: SILVIA REDDY Report Released Date/Time: Aug 11, 2024 03:58 PM Reporting Lab: [facility] [address] [facility] [address] Performing Lab: [facility] [id number] [place] [address] .NIL - QUANTIFERON 0.04 [IU]/mL .MITOGEN-NIL 0.39 [IU]/mL .QUANTIFERON INDETERMINATE NEGATIVE .TB1-NIL <0.00 [IU]/mL .TB2-NIL <0.00 [IU]/mL Aug 14, 2024 06:59 AM [facility] MAGNESIUM Specimen Type: PLASMA Comment: No hemolysis noted. Ordering Provider: SILVIA REDDY Report Released Date/Time: Aug 11, 2024 03:58 PM Reporting Lab: [facility] [place] [id number] Performing Lab: [facility] [id number] MAGNESIUM 1.9 mg/dL 1.6-2.6 Aug 14, 2024 06:59 AM [facility] B12 Specimen Type: SERUM No comment entered. Ordering Provider: SILVIA REDDY Report Released Date/Time: Aug 11, 2024 03:58 PM Reporting Lab: [facility] [id number] Performing Lab: [facility] [id number] B12 757 pg/mL 213-816 Aug 14, 2024 06:59 AM [facility] FOLATE (STL-MA) Specimen Type: SERUM No comment entered. Ordering Provider: SILVIA REDDY Report Released Date/Time: Aug 11, 2024 03:58 PM Reporting Lab: [facility] [id number] Performing Lab: [facility] [id number] FOLATE (STL-MA) 6.8 ng/mL L 7-20 Aug 14, 2024 06:[address] [facility] VITAMIN D, 25-HYDROXY Specimen Type: SERUM No comment entered. Ordering Provider: SILVIA REDDY Report Released Date/Time: Aug 11, 2024 03:58 PM Reporting Lab: [facility] [address] Performing Lab: [facility] [id number] VITAMIN D, 25-HYDROXY 8.9 ng/mL L 30-96 Aug 14, 2024 06:[address] [facility] COMPREHENSIVE METABOLIC PANEL Specimen Type: PLASMA Comment: No hemolysis noted. Ordering Provider: SILVIA REDDY Report Released Date/Time: Aug 11, 2024 03:58 PM Reporting Lab: [facility] [phone] Performing Lab: [facility] [phone] CREATININE 0.75 mg/dL 0.70-1.30 UREA NITROGEN 13.6 [...] >60 Aug 14, 2024 06:[address] [facility] CBC Specimen Type: BLOOD No comment entered. Ordering Provider: SILVIA REDDY Report Released Date/Time: Aug 11, 2024 03:58 PM Reporting Lab: [facility] [address] Performing Lab: [facility] [id number] WBC 4.1 10*3/uL 3.6-11.2 RBC 3.20 10*6/uL [...] 0.00-0.20 Aug 14, 2024 05:[address] [facility] GLUCOSE,BLOOD-poct (STL) Specimen Type: BLOOD Comment: Test Performed by: [id number] Meter #: [id number] Ordering Provider: SILVIA REDDY Report Released Date/Time: Aug 14, 2024 05:52 AM Reporting Lab: [facility] [address] Performing Lab: [facility] [address] GLUCOSE,BLOOD- poct (STL) 135 mg/dL H 72-99 Aug 13, 2024 04:[address] [facility] GLUCOSE,BLOOD-poct (STL) Specimen Type: BLOOD Comment: Test Performed by: [id number] Meter #: [id number] Ordering Provider: SILVIA REDDY Report Released Date/Time: Aug 13, 2024 04:41 PM Reporting Lab: [facility] [address] Performing Lab: [facility] [address] GLUCOSE,BLOOD- poct (STL) 181 mg/dL H -Aug 13, 2024 11:[address] [facility] GLUCOSE,BLOOD-poct (STL) Specimen Type: BLOOD Comment: Test Performed by: [id number] Meter #: [id number] Ordering Provider: SILVAI REDDY Report Released Date/Time: Aug 13, 2024 03:55 PM Reporting Lab: [facility] [address] Performing Lab: [facility] [place] [address] GLUCOSE,BLOOD- poct (STL) 140 mg/dL H Aug 13, 2024 05:[address] [facility] GLUCOSE,BLOOD-poct (STL) Specimen Type: BLOOD Comment: Test Performed by: [id number] Meter #: [id number] Ordering Provider: SILVIA REDDY Report Released Date/Time: Aug 13, 2024 06:20 AM Reporting Lab: [facility] [address] Performing Lab: [facility] [address] GLUCOSE,BLOOD- poct (STL) 112 mg/dL H Aug 12, 2024 04:[address] [facility] GLUCOSE,BLOOD-poct (STL) Specimen Type: BLOOD Comment: Test Performed by: [id number] Meter #: [id number] Ordering Provider: SILVIA REDDY Report Released Date/Time: Aug 12, 2024 04:47 PM Reporting Lab: [facility] [address] Performing Lab: [facility] [address] GLUCOSE,BLOOD- poct (STL) 128 mg/dL H 72-99 Aug 12, 2024 11:[address] [facility] GLUCOSE,BLOOD-poct (STL) Specimen Type: BLOOD Comment: Test Performed by: [id number] Meter #: [id number] Ordering Provider: SILVIA REDDY Report Released Date/Time: Aug 12, 2024 11:45 AM Reporting Lab: [facility] [address] Performing Lab: [facility] [place] [address] GLUCOSE,BLOOD- poct (STL) 188 mg/dL H -Aug 12, 2024 06:[address] [facility] GLUCOSE,BLOOD-poct (STL) Specimen Type: BLOOD Comment: Test Performed by: [id number] Meter #: [id number] Ordering Provider: SILVIA REDDY Report Released Date/Time: Aug 12, 2024 06:25 AM Reporting Lab: [facility] [address] Performing Lab: [facility] [address] GLUCOSE,BLOOD- poct (STL) 116 mg/dL H 72-99 Aug 11, 2024 04:[address] [facility] GLUCOSE,BLOOD-poct (STL) Specimen Type: BLOOD Comment: Test Performed by: [id number] Meter #: [id number] Ordering Provider: SILVIA REDDY Report Released Date/Time: Aug 11, 2024 04:27 PM Reporting Lab: [facility] [place] [address] Performing Lab: [facility] [address] GLUCOSE,BLOOD- poct (STL) 184 mg/dL H 72-99 Aug 11, 2024 01:[address] [facility] MRSA SURVL NARES DNA [...] 11, 2024 02:03 PM Reporting Lab: [address] [address] Performing Lab: [address] [address] MRSA SURVL NARES DNA Negative Negative Jul 20, 2024 11:18 AM [facility] APTT Specimen Type: PLASMA No comment entered. Ordering Provider: MANUEL BAIRD Report Released Date/Time: Jul 19, 2024 04:00 PM Reporting Lab: [address] [address] Performing Lab: [address] [address] APTT 32.1 s 26.7-39.9 Jul 20, 2024 11:18 AM [facility] PT/INR NEW (L-MO) Specimen Type: PLASMA No comment entered. Ordering Provider: MANUEL BAIRD Report Released Date/Time: Jul 19, 2024 04:00 PM Reporting Lab: [address] [address] Performing Lab: [address] [address] PROTIME 14.4 s H 9.4-12.5 INR VALUE 1.3 {INR} Jul 20, 2024 11:18 AM [facility] CBC Specimen Type: BLOOD No comment entered. Ordering Provider: MANUEL BAIRD Report Released Date/Time: Jul 19, 2024 04:00 PM Reporting Lab: [facility] [address] [facility] [address] Performing Lab: [facility] [address] [facility] [address] WBC 4.7 10*3/uL 3.6-11.2 RBC 4.86 10*6/uL [...] Source Aug 17, 2024 11:06 PM 4 [facility] Aug 17, 2024 10:01 PM 7 [facility] Aug 17, 2024 09:56 PM 0 [facility] Aug 17, 2024 08:06 PM 97.1 78 110/67 18 95 0 [facility] Aug 17, 2024 11:29 AM 126/80 [facility] N Advance Directives: All historical and [...]
--- OUTSIDE RECORDS SUMMARY | 2024-11-17 04:15 | XMS_ITS ---
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 Date/Time Encounter Type Encounter Description Reason Pro vider Source Aug 17, 2024 12:47 PM Inpatient Visit DAILY HOSPITALIZATION DATA [facility] Encounter Template Text not used by [place] [...] 24, 2024 10:00 AM AMBULATORY - MEDICINE [facility] Aug 24, 2024 10:30 AM AMBULATORY - MEDICINE [facility] Aug 30, 2024 09:30 AM AMBULATORY MEDICINE [facility] Aug 31, 2024 01:00 PM AMBULATORY - SURGERY [facility] Sep 21, 2024 01:30 PM AMBULATORY - MEDICINE [facility] Sep 22, 2024 11:00 AM AMBULATORY - MEDICINE [facility] Sep 29, 2024 12:30 PM AMBULATORY - MEDICINE [facility] Oct 02, 2024 09:30 AM AMBULATORY - MEDICINE [facility] Nov 20, 2024 10:30 AM AMBULATORY - SURGERY [facility] Nov 21, 2024 10:00 AM AMBULATORY - NONE [facility] Dec 11, 2024 10:30 AM [...] theEncounter. The data comes from all [facility]. Test Date/Time Test Type Test Details Facility Name Aug 02, 2024 12:00 AM Laboratory - Chemistry Order CBC BLOOD STAT SP [facility] Aug 02, 2024 12:00 AM Laboratory - Chemistry Order COMPREHENSIVE METABOLIC PANEL GREEN LI/HEP BLD/PLAS PLASMA SP [facility] Aug 17, 2024 03:47 PM Consult Order CRITICAL [facility]ESS [facility] Cons Bedside [facility] [...] Comment Aug 23, 2024 08:21 AM [facility] MAGNESIUM Specimen Type: PLASMA No comment entered. Ordering Provider: SILVIA REDDY Report Released Date/Time: Aug 22, 2024 11:26 AM Reporting Lab: [facility] [address] Performing Lab: [facility] [address] MAGNESIUM 1.8 mg/dL 1.6-2.6 Aug 23, 2024 08:21 AM [facility] CBC Specimen Type: BLOOD No comment entered. Ordering Provider: SILVIA REDDY Report Released Date/Time: Aug 22, 2024 11:19 AM Reporting Lab: [facility] [address] Performing Lab: [facility] [address] WBC 4.0 10*3/uL 3.6-11.2 RBC 3.65 10*6/uL [...] 0.00-0.20 Aug 23, 2024 05:12 AM [facility] GLUCOSE,BLOOD-poct (STL) Specimen Type: BLOOD Comment: Test Performed by: [id number] Meter #: [id number] Ordering Provider: SILVIA REDDY Report Released Date/Time: Aug 23, 2024 05:23 AM Reporting Lab: [facility] [address] Performing Lab: [facility] [address] GLUCOSE,BLOOD- poct (STL) 99 mg/dL 72-99 Aug 23, 2024 02:45 AM [facility] OCCULT BLOOD FIT X1 SCREEN Specimen Type: FECES No comment entered. Ordering Provider: SILVIA REDDY Report Released Date/Time: Aug 22, 2024 11:23 AM Reporting Lab: [address] [address] Performing Lab: [address] [address] OCCULT BLOOD (FIT) #1 OF 1 Negative Negative Aug 22, 2024 07:30 PM [facility] OCCULT BLOOD FIT X1 SCREEN Specimen Type: FECES No comment entered. Ordering Provider: SILVIA REDDY Report Released Date/Time: Aug 22, 2024 11:23 AM Reporting Lab: [address] [address] Performing Lab: [address] [address] OCCULT BLOOD (FIT) #1 OF 1 Negative Negative Aug 22, 2024 06:15 PM [facility] OCCULT BLOOD FIT X1 SCREEN Specimen Type: FECES No comment entered. Ordering Provider: SILVIA REDDY Report Released Date/Time: Aug 22, 2024 11:23 AM Reporting Lab: [address] [address] Performing Lab: [facility] [address] [facility] [address] OCCULT BLOOD (FIT) #1 OF 1 Negative Negative Aug 22, 2024 04:24 PM [facility] GLUCOSE,BLOOD-poct (STL) Specimen Type: BLOOD Comment: Test Performed by: [id number] Meter #: [id number] Ordering Provider: SILVIA REDDY Report Released Date/Time: Aug 22, 2024 04:36 PM Reporting Lab: [facility] [address] Performing Lab: [facility] [address] GLUCOSE,BLOOD- poct (STL) 176 mg/dL H -Aug 22, 2024 04:23 PM [facility] GLUCOSE,BLOOD-poct (STL) Specimen Type: BLOOD Comment: Test Performed by: [id number] Meter #: [id number] Ordering Provider: SILVIA REDDY Report Released Date/Time: Aug 22, 2024 04:36 PM Reporting Lab: [facility] [address] Performing Lab: [facility] [address] GLUCOSE,BLOOD- poct (STL) 221 mg/dL H 72-Aug 22, 2024 11:15 AM [facility] GLUCOSE,BLOOD-poct (STL) Specimen Type: BLOOD Comment: Test Performed by: [id number] Meter #: [id number] Ordering Provider: SILVIA REDDY Report Released Date/Time: Aug 22, 2024 11:27 AM Reporting Lab: [facility] [address] Performing Lab: [facility] [address] GLUCOSE,BLOOD- poct (STL) 140 mg/dL H 72-Aug 22, 2024 08:03 AM [facility] FERRITIN Specimen Type: SERUM No comment entered. Ordering Provider: JUDIT PERKINS Report Released Date/Time: Aug 18, 2024 11:01 AM Reporting Lab: [facility] [address] [facility] [address] Performing Lab: [facility] [address] [address] FERRITIN 79.50 ng/mL 22-275 Aug 22, 2024 08:03 AM [facility] IRON/TIBC PROFILE Specimen Type: SERUM No comment entered. Ordering Provider: JUDIT PERKINS Report Released Date/Time: Aug 18, 2024 11:01 AM Reporting Lab: [address] [address] Performing Lab: [address] [address] TIBC 283 ug/dL 250-450 TRANSFERRIN 226 mg/dL 163-344 IRON SATURATION 7 L 20-50 IRON 19 ug/dL L 65-175 Aug 22, 2024 08:03 AM [facility] B12 Specimen Type: SERUM No comment entered. Ordering Provider: JUDIT PERKINS Report Released Date/Time: Aug 18, 2024 11:01 AM Reporting Lab: [facility] [address] Performing Lab: [facility] [address] B12 631 pg/mL 213-816 Aug 22, 2024 08:03 AM [facility] COMPREHENSIVE METABOLIC PANEL Specimen Type: PLASMA Comment: No hemolysis noted. Ordering Provider: SILVIA REDDY Report Released Date/Time: Aug 17, 2024 01:18 PM Reporting Lab: [facility] [address] [facility] [address] Performing Lab: [address] [address] CREATININE 0.80 mg/dL 0.7-1.3 UREA NITROGEN 9.7 [...] PM Reporting Lab: [facility] [address] Performing Lab: [facility] [address] WBC 3.5 10*3/uL L 3.6-11.2 RBC 3.23 [...] 0 Aug 22, 2024 05:03 AM [facility] GLUCOSE,BLOOD-poct (STL) Specimen Type: BLOOD Comment: Test Performed by: [id number] Meter #: [id number] Ordering Provider: SILVIA REDDY Report Released Date/Time: Aug 22, 2024 06:17 AM Reporting Lab: [facility] [address] Performing Lab: [facility] [address] GLUCOSE,BLOOD- poct (STL) 170 mg/dL H 72-Aug 21, 2024 04:32 PM [facility] GLUCOSE,BLOOD-poct (STL) Specimen Type: BLOOD Comment: Test Performed by: [id number] Meter #: [id number] Ordering Provider: SILVIA REDDY Report Released Date/Time: Aug 21, 2024 04:49 PM Reporting Lab: [facility] [address] Performing Lab: [facility] [address] GLUCOSE,BLOOD- poct (STL) 169 mg/dL H -99 Aug 21, 2024 11:53 AM [facility] GLUCOSE,BLOOD-poct (STL) Specimen Type: BLOOD Comment: Test Performed by: [id number] Meter #: [id number] Ordering Provider: SILVIA REDDY Report Released Date/Time: Aug 21, 2024 12:11 PM Reporting Lab: [facility] [address] Performing Lab: [facility] [address] GLUCOSE,BLOOD- poct (STL) 149 mg/dL H 72-99 Aug 21, 2024 05:10 AM [facility] GLUCOSE,BLOOD-poct (STL) Specimen Type: BLOOD Comment: Test Performed by: [id number] Meter #: [id number] Ordering Provider: SILVIA REDDY Report Released Date/Time: Aug 21, 2024 05:27 AM Reporting Lab: [facility] [place] [address] Performing Lab: [facility] [address] [place] [phone] GLUCOSE,BLOOD- poct (STL) 118 mg/dL H 72-99 Aug 20, 2024 04:38 PM [facility] GLUCOSE,BLOOD-poct (STL) Specimen Type: BLOOD Comment: Test Performed by: [id number] Meter #: [id number] Ordering Provider: SILVIA REDDY Report Released Date/Time: Aug 21, 2024 01:55 AM Reporting Lab: [facility] [address] [place] [address] Performing Lab: [facility] [address] [place] [address] GLUCOSE,BLOOD- poct (STL) 169 mg/dL H 72-Aug 20, 2024 04:36 PM [facility] GLUCOSE,BLOOD-poct (STL) Specimen Type: BLOOD Comment: Test Performed by: [id number] Meter #: [id number] Ordering Provider: SILVIA REDDY Report Released Date/Time: Aug 21, 2024 01:55 AM Reporting Lab: [facility] [place] [address] Performing Lab: [facility] [place] [address] GLUCOSE,BLOOD- poct (STL) 395 mg/dL H 72-99 Aug 20, 2024 11:45 AM [facility] GLUCOSE,BLOOD-poct (STL) Specimen Type: BLOOD Comment: Test Performed by: [id number] Meter #: [id number] Ordering Provider: SILVIA REDDY Report Released Date/Time: Aug 20, 2024 11:56 AM Reporting Lab: [facility] [address] Performing Lab: [facility] [address] GLUCOSE,BLOOD- poct (STL) 169 mg/dL H 72-Aug 20, 2024 05:06 AM [facility] GLUCOSE,BLOOD-poct (STL) Specimen Type: BLOOD Comment: Test Performed by: [id number] Meter #: [id number] Ordering Provider: SILVIA REDDY Report Released Date/Time: Aug 20, 2024 06:05 AM Reporting Lab: [facility] [address] Performing Lab: [facility] [address] GLUCOSE,BLOOD- poct (STL) 115 mg/dL H 72-Aug 19, 2024 04:23 PM [facility] GLUCOSE,BLOOD-poct (STL) Specimen Type: BLOOD Comment: Test Performed by: [id number] Meter #: [id number] Ordering Provider: SILVIA REDDY Report Released Date/Time: Aug 19, 2024 05:54 PM Reporting Lab: [facility] [address] Performing Lab: [facility] [address] GLUCOSE,BLOOD- poct (STL) 137 mg/dL H 72-99 Aug 19, 2024 11:28 AM [facility] GLUCOSE,BLOOD-poct (STL) Specimen Type: BLOOD Comment: Test Performed by: [id number] Meter #: [id number] Ordering Provider: SILVIA REDDY Report Released Date/Time: Aug 19, 2024 11:51 AM Reporting Lab: [facility] [address] Performing Lab: [facility] [address] GLUCOSE,BLOOD- poct (STL) 190 mg/dL H 72-99 Aug 19, 2024 05:21 AM [facility] GLUCOSE,BLOOD-poct (STL) Specimen Type: BLOOD Comment: Test Performed by: [id number] Meter #: [id number] Ordering Provider: SILVIA REDDY Report Released Date/Time: Aug 19, 2024 05:56 AM Reporting Lab: [facility] [address] Performing Lab: [facility] [address] GLUCOSE,BLOOD- poct (STL) 130 mg/dL H Aug 18, 2024 04:49 PM [facility] GLUCOSE,BLOOD-poct (STL) Specimen Type: BLOOD Comment: Test Performed by: [id number] Meter #: [id number] Ordering Provider: SILVIA REDDY Report Released Date/Time: Aug 18, 2024 05:01 PM Reporting Lab: [facility] [address] Performing Lab: [facility] [address] GLUCOSE,BLOOD- poct (STL) 129 mg/dL H Aug 18, 2024 11:23 AM [facility] GLUCOSE,BLOOD-poct (STL) Specimen Type: BLOOD Comment: Test Performed by: [id number] Meter #: [id number] Ordering Provider: SILVIA REDDY Report Released Date/Time: Aug 18, 2024 11:41 AM Reporting Lab: [facility] [address] Performing Lab: [facility] [address] GLUCOSE,BLOOD- poct (STL) 180 mg/dL H Aug 18, 2024 05:08 AM [facility] GLUCOSE,BLOOD-poct (STL) Specimen Type: BLOOD Comment: Test Performed by: [id number] Meter #: [id number] Ordering Provider: SILVIA REDDY Report Released Date/Time: Aug 18, 2024 05:31 AM Reporting Lab: [facility] [place] [address] Performing Lab: [facility] [address] GLUCOSE,BLOOD- poct (STL) 127 mg/dL H -Aug 17, 2024 07:32 PM [facility] GLUCOSE,BLOOD-poct (STL) Specimen Type: BLOOD Comment: Test Performed by: [id number] Meter #: [id number] Ordering Provider: SILVIA REDDY Report Released Date/Time: Aug 17, 2024 07:59 PM Reporting Lab: [facility] [address] [place] [address] Performing Lab: [facility] [place] [address] GLUCOSE,BLOOD- poct (STL) 154 mg/dL H -Aug 17, 2024 04:24 PM [facility] GLUCOSE,BLOOD-poct (STL) Specimen Type: BLOOD Comment: Test Performed by: [id number] Meter #: [id number] Ordering Provider: SILVIA REDDY Report Released Date/Time: Aug 17, 2024 04:35 PM Reporting Lab: [facility] [place] [address] Performing Lab: [facility] [place] [address] GLUCOSE,BLOOD- poct (STL) 178 mg/dL H -Aug 17, 2024 05:09 AM [facility] GLUCOSE,BLOOD-poct (STL) Specimen Type: BLOOD Comment: Test Performed by: [id number] Meter #: [id number] Ordering Provider: SILVIA REDDY Report Released Date/Time: Aug 17, 2024 05:54 AM Reporting Lab: [facility] [address] Performing Lab: [facility] [address] GLUCOSE,BLOOD- poct (STL) 124 mg/dL H 72-Aug 16, 2024 07:40 PM [facility] GLUCOSE,BLOOD-poct (STL) Specimen Type: BLOOD Comment: Test Performed by: [id number] Meter #: [id number] Ordering Provider: SILVIA REDDY Report Released Date/Time: Aug 16, 2024 08:28 PM Reporting Lab: [facility] [address] Performing Lab: [facility] [address] GLUCOSE,BLOOD- poct (STL) 144 mg/dL H -Aug 16, 2024 04:19 PM [facility] GLUCOSE,BLOOD-poct (STL) Specimen Type: BLOOD Comment: Test Performed by: [id number] Meter #: [id number] Ordering Provider: ISLVIA REDDY Report Released Date/Time: Aug 16, 2024 04:45 PM Reporting Lab: [facility] [address] Performing Lab: [facility] [address] GLUCOSE,BLOOD- poct (STL) 138 mg/dL H 72-Aug 16, 2024 11:52 AM [facility] GLUCOSE,BLOOD-poct (STL) Specimen Type: BLOOD Comment: Test Performed by: [id number] Meter #: [id number] Ordering Provider: SILVIA REDDY Report Released Date/Time: Aug 16, 2024 12:04 PM Reporting Lab: [facility] [address] Performing Lab: [facility] [address] GLUCOSE,BLOOD- poct (STL) 135 mg/dL H 72-99 Aug 16, 2024 05:24 AM [facility] GLUCOSE,BLOOD-poct (STL) Specimen Type: BLOOD Comment: Test Performed by: [id number] Meter #: [id number] Ordering Provider: SILVIA REDDY Report Released Date/Time: Aug 16, 2024 05:38 AM Reporting Lab: [facility] [address] Performing Lab: [facility] [address] GLUCOSE,BLOOD- poct (STL) 151 mg/dL H Aug 15, 2024 07:31 PM [facility] GLUCOSE,BLOOD-poct (STL) Specimen Type: BLOOD Comment: Test Performed by: [id number] Meter #: [id number] Ordering Provider: SILVIA REDDY Report Released Date/Time: Aug 15, 2024 08:07 PM Reporting Lab: [facility] [address] Performing Lab: [facility] [address] GLUCOSE,BLOOD- poct (STL) 173 mg/dL H Aug 15, 2024 04:18 PM [facility] GLUCOSE,BLOOD-poct (STL) Specimen Type: BLOOD Comment: Test Performed by: [id number] Meter #: [id number] Ordering Provider: SILVIA REDDY Report Released Date/Time: Aug 15, 2024 04:59 PM Reporting Lab: [facility] [address] Performing Lab: [facility] [address] GLUCOSE,BLOOD- poct (STL) 136 mg/dL H Aug 15, 2024 04:16 PM [facility] GLUCOSE,BLOOD-poct (STL) Specimen Type: BLOOD Comment: Test Performed by: [id number] Meter #: [id number] Ordering Provider: SILVIA REDDY Report Released Date/Time: Aug 15, 2024 04:59 PM Reporting Lab: [facility] [place] [address] Performing Lab: [facility] [address] GLUCOSE,BLOOD- poct (STL) 194 mg/dL H 72-Aug 15, 2024 11:39 AM [facility] GLUCOSE,BLOOD-poct (STL) Specimen Type: BLOOD Comment: Test Performed by: [id number] Meter #: [id number] Ordering Provider: SILVIA REDDY Report Released Date/Time: Aug 15, 2024 12:00 PM Reporting Lab: [facility] [place] [address] Performing Lab: [facility] [place] [address] GLUCOSE,BLOOD- poct (STL) 127 mg/dL H -Aug 15, 2024 05:07 AM [facility] GLUCOSE,BLOOD-poct (STL) Specimen Type: BLOOD Comment: Test Performed by: [id number] Meter #: [id number] Ordering Provider: SILVIA REDDY Report Released Date/Time: Aug 15, 2024 06:14 AM Reporting Lab: [facility] [place] [address] Performing Lab: [facility] [place] [address] GLUCOSE,BLOOD- poct (STL) 151 mg/dL H -Aug 14, 2024 04:22 PM [facility] GLUCOSE,BLOOD-poct (STL) Specimen Type: BLOOD Comment: Test Performed by: [id number] Meter #: [id number] Ordering Provider: SILVIA REDDY Report Released Date/Time: Aug 14, 2024 04:52 PM Reporting Lab: [facility] [address] Performing Lab: [facility] [address] GLUCOSE,BLOOD- poct (STL) 129 mg/dL H 72-99 Aug 14, 2024 11:21 AM [facility] GLUCOSE,BLOOD-poct (STL) Specimen Type: BLOOD Comment: Test Performed by: [id number] Meter #: [id number] Ordering Provider: SILVIA REDDY Report Released Date/Time: Aug 14, 2024 11:37 AM Reporting Lab: [facility] [address] Performing Lab: [facility] [address] GLUCOSE,BLOOD- poct (STL) 135 mg/dL H 72-Aug 14, 2024 06:59 AM [facility] QUANTIFERON-TB,4 TUBE Specimen Type: BLOOD Comment: normalcy [...] For additional information, please refer to [email or web address]/[email or web address] (This link is being provided for information/ educational purposes only.) Test Performed by [employer], [employer] [facility], [address] [place] [address] Tommie Garcia M.D., Ph.D., Director of Laboratories , [facility] [id number] Ordering Provider: SILVIA REDDY Report Released Date/Time: Aug 11, 2024 03:58 PM Reporting Lab: [facility] [address] [address] Performing Lab: [facility] [id number] [place] [id number] .NIL - QUANTIFERON 0.04 [IU]/mL .MITOGEN-NIL 0.39 [IU]/mL .QUANTIFERON INDETERMINATE NEGATIVE .TB1-NIL <0.00 [IU]/mL .TB2-NIL <0.00 [IU]/mL Aug 14, 2024 06:59 AM [facility] B12 Specimen Type: SERUM No comment entered. Ordering Provider: SILVIA REDDY Report Released Date/Time: Aug 11, 2024 03:58 PM Reporting Lab: [facility] [address] Performing Lab: [facility] [address] B12 757 pg/mL 213-816 Aug 14, 2024 06:59 AM [facility] FOLATE (STL-MA) Specimen Type: SERUM No comment entered. Ordering Provider: SILVIA REDDY Report Released Date/Time: Aug 11, 2024 03:58 PM Reporting Lab: [facility] [address] Performing Lab: [facility] [address] FOLATE (STL-MA) 6.8 ng/mL L 7-20 Aug 14, 2024 06:59 AM [facility] MAGNESIUM Specimen Type: PLASMA Comment: No hemolysis noted. Ordering Provider: SILVIA REDDY Report Released Date/Time: Aug 11, 2024 03:58 PM Reporting Lab: [facility] [address] Performing Lab: [facility] [address] MAGNESIUM 1.9 mg/dL 1.6-2.6 Aug 14, 2024 06:59 AM [facility] VITAMIN D, 25-HYDROXY Specimen Type: SERUM No comment entered. Ordering Provider: SILVIA REDDY Report Released Date/Time: Aug 11, 2024 03:58 PM Reporting Lab: [facility] [place] [phone] Performing Lab: [facility] [phone] VITAMIN D, 25-HYDROXY 8.9 ng/mL L 30-96 Aug 14, 2024 06:59 AM [facility] COMPREHENSIVE METABOLIC PANEL Specimen Type: PLASMA Comment: No hemolysis noted. Ordering Provider: SILVIA REDDY Report Released Date/Time: Aug 11, 2024 03:58 PM Reporting Lab: [facility] [phone] Performing Lab: [facility] [place] [phone] CREATININE 0.75 mg/dL 0.70-1.30 UREA NITROGEN 13.6 [...] >60 Aug 14, 2024 06:59 AM [facility] CBC Specimen Type: BLOOD No comment entered. Ordering Provider: SILVIA REDDY Report Released Date/Time: Aug 11, 2024 03:58 PM Reporting Lab: [facility] [phone] Performing Lab: [facility] [phone] WBC 4.1 10*3/uL 3.6-11.2 RBC 3.20 10*6/uL [...] 0.00-0.20 Aug 14, 2024 05:08 AM [facility] GLUCOSE,BLOOD-poct (STL) Specimen Type: BLOOD Comment: Test Performed by: [id number] Meter #: [id number] Ordering Provider: SILVIA REDDY Report Released Date/Time: Aug 14, 2024 05:52 AM Reporting Lab: [facility] [phone] Performing Lab: [facility] [phone] GLUCOSE,BLOOD- poct (STL) 135 mg/dL H 72-99 Aug 13, 2024 04:27 PM [facility] GLUCOSE,BLOOD-poct (STL) Specimen Type: BLOOD Comment: Test Performed by: [id number] Meter #: [id number] Ordering Provider: SILVIA REDDY Report Released Date/Time: Aug 13, 2024 04:41 PM Reporting Lab: [facility] [phone] Performing Lab: [facility] [phone] GLUCOSE,BLOOD- poct (STL) 181 mg/dL H -Aug 13, 2024 11:33 AM [facility] GLUCOSE,BLOOD-poct (STL) Specimen Type: BLOOD Comment: Test Performed by: [id number] Meter #: [id number] Ordering Provider: SILVIA REDDY Report Released Date/Time: Aug 13, 2024 03:55 PM Reporting Lab: [facility] [address] Performing Lab: [facility] [place] [address] GLUCOSE,BLOOD- poct (STL) 140 mg/dL H Aug 13, 2024 05:54 AM [facility] GLUCOSE,BLOOD-poct (STL) Specimen Type: BLOOD Comment: Test Performed by: [id number] Meter #: [id number] Ordering Provider: SILVIA REDDY Report Released Date/Time: Aug 13, 2024 06:20 AM Reporting Lab: [facility] [facility] [address] Performing Lab: [facility] [facility] [address] GLUCOSE,BLOOD- poct (STL) 112 mg/dL H Aug 12, 2024 04:35 PM [facility] GLUCOSE,BLOOD-poct (STL) Specimen Type: BLOOD Comment: Test Performed by: [id number] Meter #: [id number] Ordering Provider: SILVIA REDDY Report Released Date/Time: Aug 12, 2024 04:47 PM Reporting Lab: [facility] [facility] [address] Performing Lab: [facility] [facility] [address] GLUCOSE,BLOOD- poct (STL) 128 mg/dL H 72-99 Aug 12, 2024 11:26 AM [facility] GLUCOSE,BLOOD-poct (STL) Specimen Type: BLOOD Comment: Test Performed by: [id number] Meter #: [id number] Ordering Provider: SILVIA REDDY Report Released Date/Time: Aug 12, 2024 11:45 AM Reporting Lab: [facility] [facility] [address] Performing Lab: [facility] [address] [place] [address] GLUCOSE,BLOOD- poct (STL) 188 mg/dL H -Aug 12, 2024 06:13 AM [facility] GLUCOSE,BLOOD-poct (STL) Specimen Type: BLOOD Comment: Test Performed by: [id number] Meter #: [id number] Ordering Provider: SILVIA REDDY Report Released Date/Time: Aug 12, 2024 06:25 AM Reporting Lab: [facility] [facility] [address] Performing Lab: [facility] [facility] [address] GLUCOSE,BLOOD- poct (STL) 116 mg/dL H 72-99 Aug 11, 2024 04:10 PM [facility] GLUCOSE,BLOOD-poct (STL) Specimen Type: BLOOD Comment: Test Performed by: [id number] Meter #: [id number] Ordering Provider: SILVIA REDDY Report Released Date/Time: Aug 11, 2024 04:27 PM Reporting Lab: [facility] [address] [place] [address] Performing Lab: [facility] [facility] [address] GLUCOSE,BLOOD- poct (STL) 184 mg/dL H 72-99 Aug 11, 2024 01:44 PM [facility] MRSA SURVL NARES DNA Specimen Type: NARES [...] 11, 2024 02:03 PM Reporting Lab: [address] [address] Performing Lab: [address] [address] MRSA SURVL NARES DNA Negative Negative Jul 20, 2024 11:18 AM [facility] APTT Specimen Type: PLASMA No comment entered. Ordering Provider: MANUEL BAIRD Report Released Date/Time: Jul 19, 2024 04:00 PM Reporting Lab: [address] [address] Performing Lab: [address] [address] APTT 32.1 s 26.7-39.9 Jul 20, 2024 11:18 AM [facility] PT/INR NEW (L-MN) Specimen Type: PLASMA No comment entered. Ordering Provider: MANUEL BAIRD Report Released Date/Time: Jul 19, 2024 04:00 PM Reporting Lab: [address] [address] Performing Lab: [address] [address] PROTIME 14.4 s H 9.4-12.5 INR VALUE 1.3 {INR} Jul 20, 2024 11:18 AM [facility] CBC Specimen Type: BLOOD No comment entered. Ordering Provider: MANUEL BAIRD Report Released Date/Time: Jul 19, 2024 04:00 PM Reporting Lab: [facility] [address] [facility] [address] Performing Lab: [facility] [address] [facility] [address] WBC 4.7 10*3/uL 3.6-11.2 RBC 4.86 10*6/uL [...] Source Aug 17, 2024 11:06 PM 4 [facility] Aug 17, 2024 10:01 PM 7 [facility] Aug 17, 2024 09:56 PM 0 [facility] Aug 17, 2024 08:06 PM 97.1 78 110/67 18 95 0 [facility] Aug 17, 2024 11:29 AM 126/80 [facility] Advance Directives: All historical and [...]
--- OUTSIDE RECORDS SUMMARY | 2024-11-17 04:15 | XMS_ITS | Encounter Summary ---
Author Name [facility] Organization [facility] Address [address] [place] [address] Care Team Providers Care International Marketing Coordinator Name Role Phone MANUEL BAIRD Primary [...] PART A Apr 08, 2017 PART A [id number] ASHLEY WALKER PATIENT Selected Encounter This section includes the information on record at [place] for the Encounter. 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 This section includes future appointments [...] 01:00 PM AMBULATORY - SURGERY [facility] Sep 21, 2024 01:30 PM AMBULATORY - MEDICINE [facility] Sep 22, 2024 11:00 AM AMBULATORY - MEDICINE [facility] Sep 29, 2024 12:30 PM AMBULATORY - MEDICINE [facility] Oct 02, 2024 09:30 AM AMBULATORY - MEDICINE [facility] Nov 20, 2024 10:30 AM AMBULATORY - SURGERY [facility] Nov 21, 2024 10:00 AM AMBULATORY - NONE [facility] Dec 11, 2024 10:30 AM AMBULATORY - MEDICINE [facility] Active, Pending, and Scheduled [...] Chemistry Order CBC BLOOD STAT SP [facility] Aug 02, 2024 12:00 AM Laboratory - Chemistry Order COMPREHENSIVE METABOLIC PANEL GREEN LI/HEP BLD/PLAS PLASMA SP [facility] Aug 17, 2024 03:47 PM Consult Order [facility] Cons Bedside [facility] Lab Results: +/- 30 days of the encounter This section includes the Chemistry and Hematology Lab Results on record with [place] for the patient. Radiology Reports and Pathology Reports are provided separately, in subsequent sections. Lab Results This section contains the Chemistry/Hematology Results that were resulted 30 days before or 30 daysafter the date of the Encounter. Date/Time Source Result Type Result - Unit Interpretation Reference Range Comment Aug 23, 2024 08:21 AM [facility] MAGNESIUM Specimen Type: PLASMA No comment entered. Ordering Provider: SIMEON REDDY Report Released Date/Time: Aug 22, 2024 11:26 AM Reporting Lab: [facility] [address] Performing Lab: [facility] [address] MAGNESIUM 1.8 mg/dL 1.6-2.6 Aug 23, 2024 08:21 AM [facility] CBC Specimen Type: BLOOD No comment entered. Ordering Provider: SIMEON REDDY Report Released Date/Time: Aug 22, 2024 11:19 AM Reporting Lab: [facility] [address] Performing Lab: [facility] [address] WBC 4.0 10*3/uL 3.6-11.2 RBC 3.65 10*6/uL [...] 10*3/uL 0.00-0.20 Aug 23, 2024 05:12 AM [facility] GLUCOSE,BLOOD-poct (STL) Specimen Type: BLOOD Comment: Test Performed by: [id number] Meter #: [id number] Ordering Provider: SIMEON REDDY Report Released Date/Time: Aug 23, 2024 05:23 AM Reporting Lab: [facility] [address] Performing Lab: [facility] [address] GLUCOSE,BLOOD- poct (STL) 99 mg/dL 72-99 Aug 23, 2024 02:45 AM [facility] OCCULT BLOOD FIT X1 SCREEN Specimen Type: FECES No comment entered. Ordering Provider: SIMEON REDDY Report Released Date/Time: Aug 22, 2024 11:23 AM Reporting Lab: [facility] [address] [facility] [place] [address] Performing Lab: [place] [id number] [facility] [place] [address] OCCULT BLOOD (FIT) #1 OF 1 Negative Negative Aug 22, 2024 07:30 PM [facility] OCCULT BLOOD FIT X1 SCREEN Specimen Type: FECES No comment entered. Ordering Provider: SIMEON REDDY Report Released Date/Time: Aug 22, 2024 11:23 AM Reporting Lab: [facility] [address] [facility] [address] Performing Lab: [facility] [address] [facility] [address] OCCULT BLOOD (FIT) #1 OF 1 Negative Negative Aug 22, 2024 06:15 PM [facility] OCCULT BLOOD FIT X1 SCREEN Specimen Type: FECES No comment entered. Ordering Provider: SIMEON REDDY Report Released Date/Time: Aug 22, 2024 11:23 AM Reporting Lab: [address] [address] Performing Lab: [address] [address] OCCULT BLOOD (FIT) #1 OF 1 Negative Negative Aug 22, 2024 04:24 PM [facility] GLUCOSE,BLOOD-poct (STL) Specimen Type: BLOOD Comment: Test Performed by: [id number] Meter #: [id number] Ordering Provider: SIMEON REDDY Report Released Date/Time: Aug 22, 2024 04:36 PM Reporting Lab: [facility] [address] Performing Lab: [facility] [address] GLUCOSE,BLOOD- poct (STL) 176 mg/dL H 72-99 Aug 22, 2024 04:23 PM [facility] GLUCOSE,BLOOD-poct (STL) Specimen Type: BLOOD Comment: Test Performed by: [id number] Meter #: [id number] Ordering Provider: SIMEON REDDY Report Released Date/Time: Aug 22, 2024 04:36 PM Reporting Lab: [facility] [address] Performing Lab: [facility] [address] GLUCOSE,BLOOD- poct (STL) 221 mg/dL H 72-99 Aug 22, 2024 11:15 AM [facility] GLUCOSE,BLOOD-poct (STL) Specimen Type: BLOOD Comment: Test Performed by: [id number] Meter #: [id number] Ordering Provider: SIMEON REDDY Report Released Date/Time: Aug 22, 2024 11:27 AM Reporting Lab: [facility] [address] Performing Lab: [facility] [address] GLUCOSE,BLOOD- poct (STL) 140 mg/dL H 72-99 Aug 22, 2024 08:03 AM [facility] FERRITIN Specimen Type: SERUM No comment entered. Ordering Provider: JUDIT PERKINS Report Released Date/Time: Aug 18, 2024 11:01 AM Reporting Lab: [facility] [address] [place] [address] Performing Lab: [address] [address] FERRITIN 79.50 ng/mL 22-275 Aug 22, 2024 08:03 AM [facility] B12 Specimen Type: SERUM No comment entered. Ordering Provider: JUDIT PERKINS Report Released Date/Time: Aug 18, 2024 11:01 AM Reporting Lab: [facility] [address] Performing Lab: [facility] [facility] [address] B12 631 pg/mL 213-816 Aug 22, 2024 08:03 AM [facility] IRON/TIBC PROFILE Specimen Type: SERUM No comment entered. Ordering Provider: JUDIT PERKINS Report Released Date/Time: Aug 18, 2024 11:01 AM Reporting Lab: [facility] [address] [facility] [place] [address] Performing Lab: [address] [address] TIBC 283 ug/dL 250-450 TRANSFERRIN 226 mg/dL 163-344 IRON SATURATION 7 L 20-50 IRON 19 ug/dL L 65-175 Aug 22, 2024 08:[address] [facility] COMPREHENSIVE METABOLIC PANEL Specimen Type: PLASMA Comment: No hemolysis noted. Ordering Provider: SIMEON REDDY Report Released Date/Time: Aug 17, 2024 01:18 PM Reporting Lab: [facility] [address] [facility] [address] Performing Lab: [facility] [address] [facility] [place] [address] CREATININE 0.80 mg/dL 0.7-1.3 UREA NITROGEN 9.7 [...] 94.0 >60 Aug 22, 2024 08:03 AM [facility] CBC Specimen Type: BLOOD No comment entered. Ordering Provider: SIMEON REDDY Report Released Date/Time: Aug 17, 2024 01:18 PM Reporting Lab: [facility] [address] Performing Lab: [facility] [address] WBC 3.5 10*3/uL L 3.6-11.2 RBC 3.23 [...] NRBC% 0 Aug 22, 2024 05:03 AM [facility] GLUCOSE,BLOOD-poct (STL) Specimen Type: BLOOD Comment: Test Performed by: [id number] Meter #: [id number] Ordering Provider: SIMEON REDDY Report Released Date/Time: Aug 22, 2024 06:17 AM Reporting Lab: [facility] [address] Performing Lab: [facility] [address] GLUCOSE,BLOOD- poct (STL) 170 mg/dL H -Aug 21, 2024 04:32 PM [facility] GLUCOSE,BLOOD-poct (STL) Specimen Type: BLOOD Comment: Test Performed by: [id number] Meter #: [id number] Ordering Provider: SIMEON REDDY Report Released Date/Time: Aug 21, 2024 04:49 PM Reporting Lab: [facility] [address] Performing Lab: [facility] [address] [facility] [address] GLUCOSE,BLOOD- poct (STL) 169 mg/dL H 72-99 Aug 21, 2024 11:53 AM [facility] GLUCOSE,BLOOD-poct (STL) Specimen Type: BLOOD Comment: Test Performed by: [id number] Meter #: [id number] Ordering Provider: SIMEON REDDY Report Released Date/Time: Aug 21, 2024 12:11 PM Reporting Lab: [facility] [address] Performing Lab: [facility] #[address] [place] [address] GLUCOSE,BLOOD- poct (STL) 149 mg/dL H 72-99 Aug 21, 2024 05:10 AM [facility] GLUCOSE,BLOOD-poct (STL) Specimen Type: BLOOD Comment: Test Performed by: [id number] Meter #: [id number] Ordering Provider: SIMEON REDDY Report Released Date/Time: Aug 21, 2024 05:27 AM Reporting Lab: [facility]1 [place] [address] Performing Lab: [facility] [address] [place] [address] GLUCOSE,BLOOD- poct (STL) 118 mg/dL H 72-99 Aug 20, 2024 04:38 PM [facility] GLUCOSE,BLOOD-poct (STL) Specimen Type: BLOOD Comment: Test Performed by: [id number] Meter #: [id number] Ordering Provider: SIMEON REDDY Report Released Date/Time: Aug 21, 2024 01:55 AM Reporting Lab: [facility] [address] Performing Lab: [facility] #[address] [place] [address] GLUCOSE,BLOOD- poct (STL) 169 mg/dL H 72-99 Aug 20, 2024 04:36 PM [facility] GLUCOSE,BLOOD-poct (STL) Specimen Type: BLOOD Comment: Test Performed by: [id number] Meter #: [id number] Ordering Provider: SIMEON REDDY Report Released Date/Time: Aug 21, 2024 01:55 AM Reporting Lab: [facility] [address] [place] [address] Performing Lab: [facility] [address] GLUCOSE,BLOOD- poct (STL) 395 mg/dL H -Aug 20, 2024 11:45 AM [facility] GLUCOSE,BLOOD-poct (STL) Specimen Type: BLOOD Comment: Test Performed by: [id number] Meter #: [id number] Ordering Provider: SIMEON REDDY Report Released Date/Time: Aug 20, 2024 11:56 AM Reporting Lab: [facility] [address] Performing Lab: [facility] [address]1 [facility] [address] GLUCOSE,BLOOD- poct (STL) 169 mg/dL H Aug 20, 2024 05:06 AM [facility] GLUCOSE,BLOOD-poct (STL) Specimen Type: BLOOD Comment: Test Performed by: [id number] Meter #: [id number] Ordering Provider: SIMEON REDDY Report Released Date/Time: Aug 20, 2024 06:05 AM Reporting Lab: [facility] [address] Performing Lab: [facility] #1 [facility] [address] GLUCOSE,BLOOD- poct (STL) 115 mg/dL H Aug 19, 2024 04:23 PM [facility] GLUCOSE,BLOOD-poct (STL) Specimen Type: BLOOD Comment: Test Performed by: [id number] Meter #: [id number] Ordering Provider: SIMEON REDDY Report Released Date/Time: Aug 19, 2024 05:54 PM Reporting Lab: [facility] [address] Performing Lab: [facility] #1 [facility] [address] GLUCOSE,BLOOD- poct (STL) 137 mg/dL H Aug 19, 2024 11:28 AM [facility] GLUCOSE,BLOOD-poct (STL) Specimen Type: BLOOD Comment: Test Performed by: [id number] Meter #: [id number] Ordering Provider: SIMEON REDDY Report Released Date/Time: Aug 19, 2024 11:51 AM Reporting Lab: [facility] #1 [facility] [address] Performing Lab: [facility] #1 [facility] [address] GLUCOSE,BLOOD- poct (STL) 190 mg/dL H -Aug 19, 2024 05:21 AM [facility] GLUCOSE,BLOOD-poct (STL) Specimen Type: BLOOD Comment: Test Performed by: [id number] Meter #: [id number] Ordering Provider: SIMEON REDDY Report Released Date/Time: Aug 19, 2024 05:56 AM Reporting Lab: [facility] #1 [facility] [address] Performing Lab: [facility] #1 [facility] [address] GLUCOSE,BLOOD- poct (STL) 130 mg/dL H -Aug 18, 2024 04:49 PM [facility] GLUCOSE,BLOOD-poct (STL) Specimen Type: BLOOD Comment: Test Performed by: [id number] Meter #: [id number] Ordering Provider: SIMEON REDDY Report Released Date/Time: Aug 18, 2024 05:01 PM Reporting Lab: [facility] #1 [facility] [address] Performing Lab: [facility] #1 [facility] [address] GLUCOSE,BLOOD- poct (STL) 129 mg/dL H -Aug 18, 2024 11:23 AM [facility] GLUCOSE,BLOOD-poct (STL) Specimen Type: BLOOD Comment: Test Performed by: [id number] Meter #: [id number] Ordering Provider: SIMEON REDDY Report Released Date/Time: Aug 18, 2024 11:41 AM Reporting Lab: [facility] #1 [facility] [address] Performing Lab: [facility] #1 [place] [address] GLUCOSE,BLOOD- poct (STL) 180 mg/dL H 72-Aug 18, 2024 05:08 AM [facility] GLUCOSE,BLOOD-poct (STL) Specimen Type: BLOOD Comment: Test Performed by: [id number] Meter #: [id number] Ordering Provider: SIMEON REDDY Report Released Date/Time: Aug 18, 2024 05:31 AM Reporting Lab: [facility] [place] [address] Performing Lab: [facility] #[address] [place] [address] GLUCOSE,BLOOD- poct (STL) 127 mg/dL H -Aug 17, 2024 07:32 PM [facility] GLUCOSE,BLOOD-poct (STL) Specimen Type: BLOOD Comment: Test Performed by: [id number] Meter #: [id number] Ordering Provider: SIMEON REDDY Report Released Date/Time: Aug 17, 2024 07:59 PM Reporting Lab: [facility] [address] Performing Lab: [facility] #1 [place] [address] GLUCOSE,BLOOD- poct (STL) 154 mg/dL H 72-Aug 17, 2024 04:24 PM [facility] GLUCOSE,BLOOD-poct (STL) Specimen Type: BLOOD Comment: Test Performed by: [id number] Meter #: [id number] Ordering Provider: SIMEON REDDY Report Released Date/Time: Aug 17, 2024 04:35 PM Reporting Lab: [facility] #1 [place] [address] Performing Lab: [facility] [address] GLUCOSE,BLOOD- poct (STL) 178 mg/dL H Aug 17, 2024 05:09 AM [facility] GLUCOSE,BLOOD-poct (STL) Specimen Type: BLOOD Comment: Test Performed by: [id number] Meter #: [id number] Ordering Provider: SIMEON REDDY Report Released Date/Time: Aug 17, 2024 05:54 AM Reporting Lab: [facility] [address] Performing Lab: [facility]1 [facility] [address] GLUCOSE,BLOOD- poct (STL) 124 mg/dL H Aug 16, 2024 07:40 PM [facility] GLUCOSE,BLOOD-poct (STL) Specimen Type: BLOOD Comment: Test Performed by: [id number] Meter #: [id number] Ordering Provider: SIMEON REDDY Report Released Date/Time: Aug 16, 2024 08:28 PM Reporting Lab: [facility] [address] Performing Lab: [facility] #1 [facility] [address] GLUCOSE,BLOOD- poct (STL) 144 mg/dL H Aug 16, 2024 04:19 PM [facility] GLUCOSE,BLOOD-poct (STL) Specimen Type: BLOOD Comment: Test Performed by: [id number] Meter #: [id number] Ordering Provider: SIMEON REDDY Report Released Date/Time: Aug 16, 2024 04:45 PM Reporting Lab: [facility] [address] Performing Lab: [facility] #[facility] [address] GLUCOSE,BLOOD- poct (STL) 138 mg/dL H Aug 16, 2024 11:52 AM [facility] GLUCOSE,BLOOD-poct (STL) Specimen Type: BLOOD Comment: Test Performed by: [id number] Meter #: [id number] Ordering Provider: SIMEON REDDY Report Released Date/Time: Aug 16, 2024 12:04 PM Reporting Lab: [facility] [address] Performing Lab: [facility] [address] GLUCOSE,BLOOD- poct (STL) 135 mg/dL H -Aug 16, 2024 05:24 AM [facility] GLUCOSE,BLOOD-poct (STL) Specimen Type: BLOOD Comment: Test Performed by: [id number] Meter #: [id number] Ordering Provider: SIMEON REDDY Report Released Date/Time: Aug 16, 2024 05:38 AM Reporting Lab: [facility] [address] Performing Lab: [facility] [address] GLUCOSE,BLOOD- poct (STL) 151 mg/dL H -Aug 15, 2024 07:31 PM [facility] GLUCOSE,BLOOD-poct (STL) Specimen Type: BLOOD Comment: Test Performed by: [id number] Meter #: [id number] Ordering Provider: SIMEON REDDY Report Released Date/Time: Aug 15, 2024 08:07 PM Reporting Lab: [facility] [address] Performing Lab: [facility] #[facility] [address] GLUCOSE,BLOOD- poct (STL) 173 mg/dL H -Aug 15, 2024 04:18 PM [facility] GLUCOSE,BLOOD-poct (STL) Specimen Type: BLOOD Comment: Test Performed by: [id number] Meter #: [id number] Ordering Provider: SIMEON REDDY Report Released Date/Time: Aug 15, 2024 04:59 PM Reporting Lab: [facility] [address] Performing Lab: [facility] #[facility] [address] GLUCOSE,BLOOD- poct (STL) 136 mg/dL H 72-99 Aug 15, 2024 04:16 PM [facility] GLUCOSE,BLOOD-poct (STL) Specimen Type: BLOOD Comment: Test Performed by: [id number] Meter #: [id number] Ordering Provider: SIMEON REDDY Report Released Date/Time: Aug 15, 2024 04:59 PM Reporting Lab: [facility] #1 [place] [address] Performing Lab: [facility] [place] [address] GLUCOSE,BLOOD- poct (STL) 194 mg/dL H 72-Aug 15, 2024 11:39 AM [facility] GLUCOSE,BLOOD-poct (STL) Specimen Type: BLOOD Comment: Test Performed by: [id number] Meter #: [id number] Ordering Provider: SIMEON REDDY Report Released Date/Time: Aug 15, 2024 12:00 PM Reporting Lab: [facility] [address] Performing Lab: [facility] [address] GLUCOSE,BLOOD- poct (STL) 127 mg/dL H 72-99 Aug 15, 2024 05:07 AM [facility] GLUCOSE,BLOOD-poct (STL) Specimen Type: BLOOD Comment: Test Performed by: [id number] Meter #: [id number] Ordering Provider: SIMEON REDDY Report Released Date/Time: Aug 15, 2024 06:14 AM Reporting Lab: [facility] [place] [address] Performing Lab: [facility] [address] GLUCOSE,BLOOD- poct (STL) 151 mg/dL H -Aug 14, 2024 04:22 PM [facility] GLUCOSE,BLOOD-poct (STL) Specimen Type: BLOOD Comment: Test Performed by: [id number] Meter #: [id number] Ordering Provider: SIMEON REDDY Report Released Date/Time: Aug 14, 2024 04:52 PM Reporting Lab: [facility] [address] Performing Lab: [facility] [address] GLUCOSE,BLOOD- poct (STL) 129 mg/dL H Aug 14, 2024 11:21 AM [facility] GLUCOSE,BLOOD-poct (STL) Specimen Type: BLOOD Comment: Test Performed by: [id number] Meter #: [id number] Ordering Provider: SIMEON REDDY Report Released Date/Time: Aug 14, 2024 11:37 AM Reporting Lab: [facility] [address] Performing Lab: [facility] [address] GLUCOSE,BLOOD- poct (STL) 135 mg/dL H Aug 14, 2024 06:59 AM [facility] QUANTIFERON-TB,4 TUBE Specimen Type: BLOOD Comment: [...] tube is coated with the M. tuberculosis-spec [facility] antigens designed to elicit responses from TB antigen primed CD4+ helper T-lymphocytes. The TB2 Antigen tube is coated with the M. tuberculosis-spec ifi antigens designed to elicit responses from TB antigen primed CD4+ helper and CD8+ cytotoxic T-lymphocytes. For additional information, please refer to http://[email or web address]/faq/NKG980 (This link is being provided for information/ educational purposes only.) Test [facility] by [facility], [facility], [address] [place] [address] Tommie Garcia M.D., Ph.D., Director of Laboratories , [facility] [id number] Ordering Provider: SIMEON REDDY Report Released Date/Time: Aug 11, 2024 03:58 PM Reporting Lab: [facility] [address] [place] [address] Performing Lab: [facility] [address] [place] [address] .NIL - QUANTIFERON 0.04 [IU]/mL .MITOGEN-NIL 0.39 [IU]/mL .QUANTIFERON INDETERMINATE NEGATIVE .TB1-NIL <0.00 [IU]/mL .TB2-NIL <0.00 [IU]/mL Aug 14, 2024 06:59 AM [facility] MAGNESIUM Specimen Type: PLASMA Comment: No hemolysis noted. Ordering Provider: SIMEON REDDY Report Released Date/Time: Aug 11, 2024 03:58 PM Reporting Lab: [facility] [facility] [id number] Performing Lab: [facility] [facility] [id number] MAGNESIUM 1.9 mg/dL 1.6-2.6 Aug 14, 2024 06:59 AM [facility] B12 Specimen Type: SERUM No comment entered. Ordering Provider: SIMEON REDDY Report Released Date/Time: Aug 11, 2024 03:58 PM Reporting Lab: [facility] [facility] [id number] Performing Lab: [facility] [facility] [id number] B12 757 pg/mL [phone] Aug 14, 2024 06:59 AM [facility] Specimen Type: SERUM No comment entered. Ordering Provider: SIMEON REDDY Report Released Date/Time: Aug 11, 2024 03:58 PM Reporting Lab: [facility] [id number] Performing Lab: [facility] [facility] [id number] FOLATE (L-MA) 6.8 ng/mL L 7-20 Aug 14, 2024 06:59 AM [facility] VITAMIN D, 25-HYDROXY Specimen Type: SERUM No comment entered. Ordering Provider: SIMEON REDDY Report Released Date/Time: Aug 11, 2024 03:58 PM Reporting Lab: [facility] [address] Performing Lab: [facility] [address] VITAMIN D, 25-HYDROXY 8.9 ng/mL L 30-96 Aug 14, 2024 06:59 AM [facility] COMPREHENSIVE METABOLIC PANEL Specimen Type: PLASMA Comment: No hemolysis noted. Ordering Provider: SIMEON REDDY Report Released Date/Time: Aug 11, 2024 03:58 PM Reporting Lab: [facility] [address] Performing Lab: [facility] [address] CREATININE 0.75 mg/dL 0.70-1.30 UREA NITROGEN 13.6 [...] 95.88 >60 Aug 14, 2024 06:59 AM [facility] CBC Specimen Type: BLOOD No comment entered. Ordering Provider: SIMEON REDDY Report Released Date/Time: Aug 11, 2024 03:58 PM Reporting Lab: [facility] [address] Performing Lab: [facility] [address] WBC 4.1 10*3/uL 3.6-11.2 RBC 3.20 10*6/uL [...] 10*3/uL 0.00-0.20 Aug 14, 2024 05:08 AM [facility] GLUCOSE,BLOOD-poct (STL) Specimen Type: BLOOD Comment: Test Performed by: [id number] Meter #: [id number] Ordering Provider: SIMEON REDDY Report Released Date/Time: Aug 14, 2024 05:52 AM Reporting Lab: [facility] [place] [address] Performing Lab: [facility] [place] [address] GLUCOSE,BLOOD- poct (STL) 135 mg/dL H -Aug 13, 2024 04:27 PM [facility] GLUCOSE,BLOOD-poct (STL) Specimen Type: BLOOD Comment: Test Performed by: [id number] Meter #: [id number] Ordering Provider: SIMEON REDDY Report Released Date/Time: Aug 13, 2024 04:41 PM Reporting Lab: [facility] [place] [address] Performing Lab: [facility] [place] [address] GLUCOSE,BLOOD- poct (STL) 181 mg/dL H -Aug 13, 2024 11:33 AM [facility] GLUCOSE,BLOOD-poct (STL) Specimen Type: BLOOD Comment: Test Performed by: [id number] Meter #: [id number] Ordering Provider: SIMEON REDDY Report Released Date/Time: Aug 13, 2024 03:55 PM Reporting Lab: [facility] [place] [address] Performing Lab: [facility] [place] [address] GLUCOSE,BLOOD- poct (STL) 140 mg/dL H -Aug 13, 2024 05:54 AM [facility] GLUCOSE,BLOOD-poct (STL) Specimen Type: BLOOD Comment: Test Performed by: [id number] Meter #: [id number] Ordering Provider: SIMEON REDDY Report Released Date/Time: Aug 13, 2024 06:20 AM Reporting Lab: [facility] [address] Performing Lab: [facility] [address] GLUCOSE,BLOOD- poct (STL) 112 mg/dL H 72-Aug 12, 2024 04:35 PM [facility] GLUCOSE,BLOOD-poct (STL) Specimen Type: BLOOD Comment: Test Performed by: [id number] Meter #: [id number] Ordering Provider: SIMEON REDDY Report Released Date/Time: Aug 12, 2024 04:47 PM Reporting Lab: [facility] [address] Performing Lab: [facility] [place] [address] GLUCOSE,BLOOD- poct (STL) 128 mg/dL H -Aug 12, 2024 11:26 AM [facility] GLUCOSE,BLOOD-poct (STL) Specimen Type: BLOOD Comment: Test Performed by: [id number] Meter #: [id number] Ordering Provider: SIMEON REDDY Report Released Date/Time: Aug 12, 2024 11:45 AM Reporting Lab: [facility] [address] Performing Lab: [facility] [address] GLUCOSE,BLOOD- poct (STL) 188 mg/dL H Aug 12, 2024 06:13 AM [facility] GLUCOSE,BLOOD-poct (STL) Specimen Type: BLOOD Comment: Test Performed by: [id number] Meter #: [id number] Ordering Provider: SIMEON REDDY Report Released Date/Time: Aug 12, 2024 06:25 AM Reporting Lab: [facility] [address] Performing Lab: [facility] [address] GLUCOSE,BLOOD- poct (STL) 116 mg/dL H 72-99 Aug 11, 2024 04:10 PM [facility] GLUCOSE,BLOOD-poct (STL) Specimen Type: BLOOD Comment: Test Performed by: [id number] Meter #: [id number] Ordering Provider: SIMEON REDDY Report Released Date/Time: Aug 11, 2024 04:27 PM Reporting Lab: [facility] [address] Performing Lab: [facility] [address] GLUCOSE,BLOOD- poct (STL) 184 mg/dL H 72-99 Aug 11, 2024 01:44 PM [facility] MRSA SURVL NARES DNA Specimen Type: [...] 11, 2024 02:03 PM Reporting Lab: [address] [address] Performing Lab: [address] [address] MRSA SURVL NARES DNA Negative Negative Jul 20, 2024 11:18 AM [facility] APTT Specimen Type: PLASMA No comment entered. Ordering Provider: MANUEL BAIRD Report Released Date/Time: Jul 19, 2024 04:00 PM Reporting Lab: [facility] [address] [place] [address] Performing Lab: [address] [address] APTT 32.1 s 26.7-39.9 Jul 20, 2024 11:18 AM [facility] PT/INR NEW (STL-MA) Specimen Type: PLASMA No comment entered. Ordering Provider: MANUEL BAIRD Report Released Date/Time: Jul 19, 2024 04:00 PM Reporting Lab: [facility] [address] [address] [facility] [address] Performing Lab: [facility] [address] [place] [phone] PROTIME 14.4 s H 9.4-12.5 INR VALUE 1.3 {INR} Jul 20, 2024 11:18 AM [facility] CBC Specimen Type: BLOOD No comment entered. Ordering Provider: MANUEL BAIRD Report Released Date/Time: Jul 19, 2024 04:00 PM Reporting Lab: [facility] [address] [place] [address] Performing Lab: [facility] [address] [place] [address] WBC 4.7 10*3/uL 3.6-11.2 RBC 4.86 10*6/uL [...] Source Aug 17, 2024 11:[address] [facility] Aug 17, 2024 10:01 PM 7 [facility] Aug 17, 2024 09:56 PM 0 [facility] Aug 17, 2024 08:06 PM 97.1 78 110/67 18 95 0 [facility] Aug 17, 2024 11:29 AM 126/80 [facility] N Advance Directives: All historical and current Section Date Range: From patient's date of to the date document was created. This section includes ALL of a patient's completed or amended [place] Advance and Rescinded Directives. The entries below indicate that a directive exists for the patient, but an actual copy is not included with this document. The data comes from all [place] facilities. Date Advance Directives Provider Source Jan 19, 2017 ADVANCE DIRECTIVE DISCUSSION ERICK BARDALES [facility] Encounter Notes: All associated encounter notes This section contains the clinical notes associated to the Encounter. Date/Time Encounter Note(s) Provider Source Aug 17, 2024 03:26 PM LIFE-SUSTAINING TR EATMENT PLAN: LOCAL TITLE: LIFE-SUSTAINING TREATMENT STANDARD TITLE: LIFE-SUSTAINING TREATMENT PLAN DATE OF NOTE: AUG 17, 2024@15:26 ENTRY DATE: AUG 17, 2024@15:26:28 AUTHOR: SIMEON REDDY EXP COSIGNER: URGENCY: STATUS: COMPLETED LIFE-SUSTAINING TREATMENT (LST) DECISION-MAKING CAPACITY TO MAKE DECISIONS ABOUT LIFE_SUSTAINING TREATMENTS Patient has capacity to make decisions about LSTs. HEALTH CARE SURROGATE'S NAME AND CONTACT INFORMATION Next of kin: Sibling(s) Name and Contact Information: E-Cont.: JOSIE WALKER Relation Type: BROTHER PATIENT'S (OR SURROGATE'S) UNDERSTANDING OF PATIENT'S HEALTH Therapy is planning to d/c prob on Wed. I have increased my stamina but have problems with ballance d/t neurpathy. 'S VALUES AND GOALS OF CARE - Goals as reported by the patient (or surrogate): I want to stay healthy and stay out of the hospital. LIFE-SUSTAINING TREATMENT PLAN * In the event of cardiopulmonary arrest: Full code: Attempt CPR. Other Life-Sustaining Treatments: No other life-sustaining treatments were discussed INFORMED CONSENT Patient gave oral informed consent for life-sustaining treatment plan. STATE-AUTHORIZED PORTABLE ORDERS (NIRU) - Not applicable Time spent discussing and documenting this care planning activity.20 /es/ Simeon Reddy APN,[employer] SPECIALIST- Advanced Practice Nurse Signed: 08/17/2024 15:[address] [facility]
--- OUTSIDE RECORDS SUMMARY | 2024-11-17 04:15 | XMS_ITS ---
Author Name [facility] [place] Organization [facility] [place] [place] Address [address] [place] [address] Care Team Providers Care Casing Man Name Role Phone MANUEL BAIRD Primary Care [...] PART A Apr 08, 2017 PART A [id number] [phone] ASHLEY WALKER PATIENT Selected Encounter This section includes the information on record at [place] for the Encounter. Date/Time Encounter Type Encounter Description Reason Provider Source Aug 17, 2024 09:00 AM [facility] IVNTJ GRP EA ADDL RECREATION THERAPY SERVICE ICD-10-CM I25.810 Atherosclerosis of CABG w/o angina pectoris GAL FINNEGAN Encounter Template Text not used by [place] Assessments - Encounter Diagnoses This section includes the primary and secondary diagnoses documented for the Encounter. Date/Time Primary/Secondary Diagnosis Diagnosis Name Provider Source Aug 17, 2024 03:18 PM PRIMARY Atherosclerosis of CABG w/o angina pectoris GAL FINNEGAN [facility] Plan of Treatment: Future Appointments (+ 6 months) and Future Tests (+/- 45 days) The Plan of Treatment section includes future care activities for the patient [facility] [place] [facility] This section includes future appointments and [...] 24, 2024 10:00 AM AMBULATORY - MEDICINE [facility] Aug 24, 2024 10:30 AM [facility]ORY - MEDICINE [facility] Aug 30, 2024 09:30 AM [facility]ATORY MEDICINE [facility] Aug 31, 2024 01:00 PM AMBULATORY - SURGERY [facility] Sep 21, 2024 01:30 PM AMBULATORY - MEDICINE [facility] Sep 22, 2024 11:00 AM AMBULATORY - MEDICINE [facility] Sep 29, 2024 12:30 PM AMBULATORY - MEDICINE [facility] Oct 02, 2024 09:30 AM AMBULATORY - MEDICINE [facility] Nov 20, 2024 10:30 AM AMBULATORY - SURGERY [facility] Nov 21, 2024 10:00 AM AMBULATORY - NONE [facility] Dec 11, 2024 10:30 AM AMBULATORY - MEDICINE [facility] Active, Pending, and Scheduled Orders This [...] CBC BLOOD STAT SP [facility] Aug 02, 2024 12:00 AM Laboratory - Chemistry Order COMPREHENSIVE METABOLIC PANEL GREEN LI/HEP BLD/PLAS PLASMA SP [facility] Aug 17, 2024 03:47 PM Consult Order [facility] [place] [facility] Cons Bedside [facility] Lab Results: +/- 30 days of [...] Comment Aug 23, 2024 08:21 AM [facility] CBC Specimen Type: BLOOD No comment entered. Ordering Provider: SILVIA REDDY Report Released Date/Time: Aug 22, 2024 11:19 AM Reporting Lab: [facility] [address] Performing Lab: [facility] [address] [facility] [address] WBC 4.0 10*3/uL 3.6-11.2 RBC 3.65 10*6/uL [...] 10*3/uL 0.00-0.20 Aug 23, 2024 08:21 AM [facility] MAGNESIUM Specimen Type: PLASMA No comment entered. Ordering Provider: SILVIA REDDY Report Released Date/Time: Aug 22, 2024 11:26 AM Reporting Lab: [facility] [address] Performing Lab: [facility] [address] [facility] [address] MAGNESIUM 1.8 mg/dL 1.6-2.6 Aug 23, 2024 05:12 AM [facility] GLUCOSE,BLOOD-poct (STL) Specimen Type: BLOOD Comment: Test Performed by: [id number] Meter #: [id number] Ordering Provider: SILVIA REDDY Report Released Date/Time: Aug 23, 2024 05:23 AM Reporting Lab: [facility] [address] [facility] [address] Performing Lab: [facility] [address] [address] GLUCOSE,BLOOD- poct (STL) 99 mg/dL 72-99 Aug 23, 2024 02:45 AM [facility] OCCULT BLOOD FIT X1 SCREEN Specimen Type: FECES No comment entered. Ordering Provider: SILVIA REDDY Report Released Date/Time: Aug 22, 2024 11:23 AM Reporting Lab: [address] [address] Performing Lab: [address] [address] OCCULT BLOOD (FIT) #1 OF 1 Negative Negative Aug 22, 2024 07:30 PM [facility] OCCULT BLOOD FIT X1 SCREEN Specimen Type: FECES No comment entered. Ordering Provider: SILVIA REDDY Report Released Date/Time: Aug 22, 2024 11:23 AM Reporting Lab: [address] [address] Performing Lab: [address] [address] OCCULT BLOOD (FIT) #1 OF 1 Negative Negative Aug 22, 2024 06:15 PM [facility] OCCULT BLOOD FIT X1 SCREEN Specimen Type: FECES No comment entered. Ordering Provider: SILVIA REDDY Report Released Date/Time: Aug 22, 2024 11:23 AM Reporting Lab: [address] [address] Performing Lab: [address] [address] OCCULT BLOOD (FIT) #1 OF 1 Negative Negative Aug 22, 2024 04:24 PM [facility] GLUCOSE,BLOOD-poct (STL) Specimen Type: BLOOD Comment: Test Performed by: [id number] Meter #: [id number] Ordering Provider: SILVIA REDDY Report Released Date/Time: Aug 22, 2024 04:36 PM Reporting Lab: [facility] [address] [facility] [address] Performing Lab: [facility] [address] [facility] [address] GLUCOSE,BLOOD- poct (STL) 176 mg/dL H 72-99 Aug 22, 2024 04:23 PM [facility] GLUCOSE,BLOOD-poct (STL) Specimen Type: BLOOD Comment: Test Performed by: [id number] Meter #: [id number] Ordering Provider: SILVIA REDDY Report Released Date/Time: Aug 22, 2024 04:36 PM Reporting Lab: [facility] [address] Performing Lab: [facility] [address] [facility] [address] GLUCOSE,BLOOD- poct (STL) 221 mg/dL H 72-99 Aug 22, 2024 11:15 AM [facility] GLUCOSE,BLOOD-poct (STL) Specimen Type: BLOOD Comment: Test Performed by: [id number] Meter #: [id number] Ordering Provider: SILVIA REDDY Report Released Date/Time: Aug 22, 2024 11:27 AM Reporting Lab: [facility] [facility] [address] Performing Lab: [facility] [facility] [address] GLUCOSE,BLOOD- poct (STL) 140 mg/dL H 72-99 Aug 22, 2024 08:03 AM [facility] CBC Specimen Type: BLOOD No comment entered. Ordering Provider: SILVIA REDDY Report Released Date/Time: Aug 17, 2024 01:18 PM Reporting Lab: [facility] [facility] [address] Performing Lab: [facility] [address] WBC 3.5 10*3/uL L 3.6-11.2 RBC 3.23 [...] NRBC% 0 Aug 22, 2024 08:03 AM [facility] COMPREHENSIVE METABOLIC PANEL Specimen Type: PLASMA Comment: No hemolysis noted. Ordering Provider: SILVIA REDDY Report Released Date/Time: Aug 17, 2024 01:18 PM Reporting Lab: [facility] [address] [facility] [address] Performing Lab: [facility] [address] [place] [address] CREATININE 0.80 mg/dL 0.7-1.3 UREA NITROGEN 9.7 [...] >60 Aug 22, 2024 08:03 AM [facility] FERRITIN Specimen Type: SERUM No comment entered. Ordering Provider: JUDIT PERKINS Report Released Date/Time: Aug 18, 2024 11:01 AM Reporting Lab: [place] [address] [facility] [address] Performing Lab: [address] [address] FERRITIN 79.50 ng/mL 22-275 Aug 22, 2024 08:03 AM [facility] IRON/TIBC PROFILE Specimen Type: SERUM No comment entered. Ordering Provider: JUDIT PERKINS Report Released Date/Time: Aug 18, 2024 11:01 AM Reporting Lab: [address] [address] Performing Lab: [address] [address] TIBC 283 ug/dL 250-450 TRANSFERRIN 226 mg/dL 163-344 IRON SATURATION 7 L 20-50 IRON 19 ug/dL L 65-175 Aug 22, 2024 08:03 AM [facility] B12 Specimen Type: SERUM No comment entered. Ordering Provider: JUDIT PERKINS Report Released Date/Time: Aug 18, 2024 11:01 AM Reporting Lab: [facility] [facility] [address] Performing Lab: [facility] [address] [facility] [address] B12 631 pg/mL 213-816 Aug 22, 2024 05:03 AM [facility] GLUCOSE,BLOOD-poct (STL) Specimen Type: BLOOD Comment: Test Performed by: [id number] Meter #: [id number] Ordering Provider: SILVIA REDDY Report Released Date/Time: Aug 22, 2024 06:17 AM Reporting Lab: [facility] [address] Performing Lab: [facility] [address] [facility] [address] GLUCOSE,BLOOD- poct (STL) 170 mg/dL H 72-99 Aug 21, 2024 04:32 PM [facility] GLUCOSE,BLOOD-poct (STL) Specimen Type: BLOOD Comment: Test Performed by: [id number] Meter #: [id number] Ordering Provider: SILVIA REDDY Report Released Date/Time: Aug 21, 2024 04:49 PM Reporting Lab: [facility] [address] [facility] [address] Performing Lab: [facility] [address] [facility] [address] GLUCOSE,BLOOD- poct (STL) 169 mg/dL H 72-99 Aug 21, 2024 11:53 AM [facility] GLUCOSE,BLOOD-poct (STL) Specimen Type: BLOOD Comment: Test Performed by: [id number] Meter #: [id number] Ordering Provider: SILVIA REDDY Report Released Date/Time: Aug 21, 2024 12:11 PM Reporting Lab: [facility] [address] [facility] [address] Performing Lab: [facility] [address] [facility] [address] GLUCOSE,BLOOD- poct (STL) 149 mg/dL H -Aug 21, 2024 05:10 AM [facility] GLUCOSE,BLOOD-poct (STL) Specimen Type: BLOOD Comment: Test Performed by: [id number] Meter #: [id number] Ordering Provider: SILVIA REDDY Report Released Date/Time: Aug 21, 2024 05:27 AM Reporting Lab: [facility] [address] [facility] [address] Performing Lab: [facility] [address] [facility] [address] GLUCOSE,BLOOD- poct (STL) 118 mg/dL H -Aug 20, 2024 04:38 PM [facility] GLUCOSE,BLOOD-poct (STL) Specimen Type: BLOOD Comment: Test Performed by: [id number] Meter #: [id number] Ordering Provider: SILVIA REDDY Report Released Date/Time: Aug 21, 2024 01:55 AM Reporting Lab: [facility] [address] [facility] [address] Performing Lab: [facility] [address] [facility] [address] GLUCOSE,BLOOD- poct (STL) 169 mg/dL H -Aug 20, 2024 04:36 PM [facility] GLUCOSE,BLOOD-poct (STL) Specimen Type: BLOOD Comment: Test Performed by: [id number] Meter #: [id number] Ordering Provider: SILVIA REDDY Report Released Date/Time: Aug 21, 2024 01:55 AM Reporting Lab: [facility] [address] [facility] [address] Performing Lab: [facility] [address] [facility] [address] GLUCOSE,BLOOD- poct (STL) 395 mg/dL H 72-Aug 20, 2024 11:45 AM [facility] GLUCOSE,BLOOD-poct (STL) Specimen Type: BLOOD Comment: Test Performed by: [id number] Meter #: [id number] Ordering Provider: SILVIA REDDY Report Released Date/Time: Aug 20, 2024 11:56 AM Reporting Lab: [facility] [address] [facility] [address] Performing Lab: [facility] [address] GLUCOSE,BLOOD- poct (STL) 169 mg/dL H Aug 20, 2024 05:06 AM [facility] GLUCOSE,BLOOD-poct (STL) Specimen Type: BLOOD Comment: Test Performed by: [id number] Meter #: [id number] Ordering Provider: SILVIA REDDY Report Released Date/Time: Aug 20, 2024 06:05 AM Reporting Lab: [facility] [address] [facility] [address] Performing Lab: [facility] [address] GLUCOSE,BLOOD- poct (STL) 115 mg/dL H -Aug 19, 2024 04:23 PM [facility] GLUCOSE,BLOOD-poct (STL) Specimen Type: BLOOD Comment: Test Performed by: [id number] Meter #: [id number] Ordering Provider: SILVIA REDDY Report Released Date/Time: Aug 19, 2024 05:54 PM Reporting Lab: [facility] [address] [facility] [address] Performing Lab: [facility] [address] [facility] [address] GLUCOSE,BLOOD- poct (STL) 137 mg/dL H -Aug 19, 2024 11:28 AM [facility] GLUCOSE,BLOOD-poct (STL) Specimen Type: BLOOD Comment: Test Performed by: [id number] Meter #: [id number] Ordering Provider: SILVIA REDDY Report Released Date/Time: Aug 19, 2024 11:51 AM Reporting Lab: [facility] [facility] [address] Performing Lab: [facility] [address] [facility] [address] GLUCOSE,BLOOD- poct (STL) 190 mg/dL H 72-Aug 19, 2024 05:21 AM [facility] GLUCOSE,BLOOD-poct (STL) Specimen Type: BLOOD Comment: Test Performed by: [id number] Meter #: [id number] Ordering Provider: SILVIA REDDY Report Released Date/Time: Aug 19, 2024 05:56 AM Reporting Lab: [facility] [address] [place] [address] Performing Lab: [facility] [address] [place] [address] GLUCOSE,BLOOD- poct (STL) 130 mg/dL H -Aug 18, 2024 04:49 PM [facility] GLUCOSE,BLOOD-poct (STL) Specimen Type: BLOOD Comment: Test Performed by: [id number] Meter #: [id number] Ordering Provider: SILVIA REDDY Report Released Date/Time: Aug 18, 2024 05:01 PM Reporting Lab: [facility] [address] [place] [id number] Performing Lab: [facility] [address] [facility] [address] GLUCOSE,BLOOD- poct (STL) 129 mg/dL H 72-99 Aug 18, 2024 11:23 AM [facility] GLUCOSE,BLOOD-poct (STL) Specimen Type: BLOOD Comment: Test Performed by: [id number] Meter #: [id number] Ordering Provider: SILVIA REDDY Report Released Date/Time: Aug 18, 2024 11:41 AM Reporting Lab: [facility] [address] [place] [id number] Performing Lab: [facility] [facility] [address] GLUCOSE,BLOOD- poct (STL) 180 mg/dL H Aug 18, 2024 05:08 AM [facility] GLUCOSE,BLOOD-poct (STL) Specimen Type: BLOOD Comment: Test Performed by: [id number] Meter #: [id number] Ordering Provider: SILVIA REDDY Report Released Date/Time: Aug 18, 2024 05:31 AM Reporting Lab: [facility] [address] [facility] [address] Performing Lab: [facility] [address] [facility] [address] GLUCOSE,BLOOD- poct (STL) 127 mg/dL H Aug 17, 2024 07:32 PM [facility] GLUCOSE,BLOOD-poct (STL) Specimen Type: BLOOD Comment: Test Performed by: [id number] Meter #: [id number] Ordering Provider: SILVIA REDDY Report Released Date/Time: Aug 17, 2024 07:59 PM Reporting Lab: [facility] [facility] [address] Performing Lab: [facility] [address] [facility] [address] GLUCOSE,BLOOD- poct (STL) 154 mg/dL H Aug 17, 2024 04:24 PM [facility] GLUCOSE,BLOOD-poct (STL) Specimen Type: BLOOD Comment: Test Performed by: [id number] Meter #: [id number] Ordering Provider: SILVIA REDDY Report Released Date/Time: Aug 17, 2024 04:35 PM Reporting Lab: [facility] [facility] [address] Performing Lab: [facility] [address] [facility] [address] GLUCOSE,BLOOD- poct (STL) 178 mg/dL H 72-Aug 17, 2024 05:09 AM [facility] GLUCOSE,BLOOD-poct (STL) Specimen Type: BLOOD Comment: Test Performed by: [id number] Meter #: [id number] Ordering Provider: SILVIA REDDY Report Released Date/Time: Aug 17, 2024 05:54 AM Reporting Lab: [facility] [address] [facility] [address] Performing Lab: [facility] [address] GLUCOSE,BLOOD- poct (STL) 124 mg/dL H Aug 16, 2024 07:40 PM [facility] GLUCOSE,BLOOD-poct (STL) Specimen Type: BLOOD Comment: Test Performed by: [id number] Meter #: [id number] Ordering Provider: SILVIA REDDY Report Released Date/Time: Aug 16, 2024 08:28 PM Reporting Lab: [facility] [address] [facility] [address] Performing Lab: [facility] [address] GLUCOSE,BLOOD- poct (STL) 144 mg/dL H Aug 16, 2024 04:19 PM [facility] GLUCOSE,BLOOD-poct (STL) Specimen Type: BLOOD Comment: Test Performed by: [id number] Meter #: [id number] Ordering Provider: SILVAI REDDY Report Released Date/Time: Aug 16, 2024 04:45 PM Reporting Lab: [facility] [facility] [address] Performing Lab: [facility] [address] [facility] [address] GLUCOSE,BLOOD- poct (STL) 138 mg/dL H Aug 16, 2024 11:52 AM [facility] GLUCOSE,BLOOD-poct (STL) Specimen Type: BLOOD Comment: Test Performed by: [id number] Meter #: [id number] Ordering Provider: SILVIA REDDY Report Released Date/Time: Aug 16, 2024 12:04 PM Reporting Lab: [facility] [address] [facility] [address] Performing Lab: [facility] [address] [facility] [address] GLUCOSE,BLOOD- poct (STL) 135 mg/dL H -Aug 16, 2024 05:24 AM [facility] GLUCOSE,BLOOD-poct (STL) Specimen Type: BLOOD Comment: Test Performed by: [id number] Meter #: [id number] Ordering Provider: SILVIA REDDY Report Released Date/Time: Aug 16, 2024 05:38 AM Reporting Lab: [facility] [facility] [address] Performing Lab: [facility] [address] [place] [address] GLUCOSE,BLOOD- poct (STL) 151 mg/dL H -Aug 15, 2024 07:31 PM [facility] GLUCOSE,BLOOD-poct (STL) Specimen Type: BLOOD Comment: Test Performed by: [id number] Meter #: [id number] Ordering Provider: SILVIA REDDY Report Released Date/Time: Aug 15, 2024 08:07 PM Reporting Lab: [facility] [address] [facility] [address] Performing Lab: [facility] [address] [facility] [address] GLUCOSE,BLOOD- poct (STL) 173 mg/dL H -Aug 15, 2024 04:18 PM [facility] GLUCOSE,BLOOD-poct (STL) Specimen Type: BLOOD Comment: Test Performed by: [id number] Meter #: [id number] Ordering Provider: SILVIA REDDY Report Released Date/Time: Aug 15, 2024 04:59 PM Reporting Lab: [facility] [address] [place] [id number] Performing Lab: [facility] [facility] [address] GLUCOSE,BLOOD- poct (STL) 136 mg/dL H -Aug 15, 2024 04:16 PM [facility] GLUCOSE,BLOOD-poct (STL) Specimen Type: BLOOD Comment: Test Performed by: [id number] Meter #: [id number] Ordering Provider: SILVIA REDDY Report Released Date/Time: Aug 15, 2024 04:59 PM Reporting Lab: [facility] [facility] [address] Performing Lab: [facility] [facility] [address] GLUCOSE,BLOOD- poct (STL) 194 mg/dL H Aug 15, 2024 11:39 AM [facility] GLUCOSE,BLOOD-poct (STL) Specimen Type: BLOOD Comment: Test Performed by: [id number] Meter #: [id number] Ordering Provider: SILVIA REDDY Report Released Date/Time: Aug 15, 2024 12:00 PM Reporting Lab: [facility] [facility] [address] Performing Lab: [facility] [address] [facility] [address] GLUCOSE,BLOOD- poct (STL) 127 mg/dL H Aug 15, 2024 05:07 AM [facility] GLUCOSE,BLOOD-poct (STL) Specimen Type: BLOOD Comment: Test Performed by: [id number] Meter #: [id number] Ordering Provider: SILVIA REDDY Report Released Date/Time: Aug 15, 2024 06:14 AM Reporting Lab: [facility] [facility] [address] Performing Lab: [facility] [address] [facility] [address] GLUCOSE,BLOOD- poct (STL) 151 mg/dL H 72-Aug 14, 2024 04:22 PM [facility] GLUCOSE,BLOOD-poct (STL) Specimen Type: BLOOD Comment: Test Performed by: [id number] Meter #: [id number] Ordering Provider: SILVIA REDDY Report Released Date/Time: Aug 14, 2024 04:52 PM Reporting Lab: [facility] [facility] [address] Performing Lab: [facility] [facility] [address] GLUCOSE,BLOOD- poct (STL) 129 mg/dL H Aug 14, 2024 11:21 AM [facility] GLUCOSE,BLOOD-poct (STL) Specimen Type: BLOOD Comment: Test Performed by: [id number] Meter #: [id number] Ordering Provider: SILVIA REDDY Report Released Date/Time: Aug 14, 2024 11:37 AM Reporting Lab: [facility] [facility] [address] Performing Lab: [facility] [facility] [address] GLUCOSE,BLOOD- poct (STL) 135 mg/dL H Aug 14, 2024 06:59 AM [facility] QUANTIFERON-TB,4 TUBE Specimen Type: BLOOD Comment: [...] For additional information, please refer to http://[email or web address] [employer]/faq/GSS073 (This link is being provided for information/ educational purposes only.) Test Performed by [facility], [facility], [address] [place], [place] Tommie Garcia M.D., Ph.D., Director of Laboratories , [facility] [id number] Ordering Provider: SILVIA REDDY Report Released Date/Time: Aug 11, 2024 03:58 PM Reporting Lab: [facility] [address] [facility] [address] Performing Lab: [facility] [address] [place] [employer] .NIL - QUANTIFERON 0.04 [IU]/mL .MITOGEN-NIL 0.39 [IU]/mL .QUANTIFERON INDETERMINATE NEGATIVE .TB1-NIL <0.00 [IU]/mL .TB2-NIL <0.00 [IU]/mL Aug 14, 2024 06:59 AM [facility] MAGNESIUM Specimen Type: PLASMA Comment: No hemolysis noted. Ordering Provider: SILVIA REDDY Report Released Date/Time: Aug 11, 2024 03:58 PM Reporting Lab: [facility] [facility] [address] Performing Lab: [facility] [address] MAGNESIUM 1.9 mg/dL 1.6-2.6 Aug 14, 2024 06:59 AM [facility] VITAMIN D, 25-HYDROXY Specimen Type: SERUM No comment entered. Ordering Provider: SILVIA REDDY Report Released Date/Time: Aug 11, 2024 03:58 PM Reporting Lab: [facility] [facility] [address] Performing Lab: [facility] [address] VITAMIN D, 25-HYDROXY 8.9 ng/mL L 30-96 Aug 14, 2024 06:59 AM [facility] FOLATE (L-HI) Specimen Type: SERUM No comment entered. Ordering Provider: SILVIA REDDY Report Released Date/Time: Aug 11, 2024 03:58 PM Reporting Lab: [facility] [facility] [address] Performing Lab: [facility] [facility] [address] FOLATE (L-HI) 6.8 ng/mL L 7-20 Aug 14, 2024 06:59 AM [facility] B12 Specimen Type: SERUM No comment entered. Ordering Provider: SILVIA REDDY Report Released Date/Time: Aug 11, 2024 03:58 PM Reporting Lab: [facility] [address] [facility] [address] Performing Lab: [facility] [facility] [address] B12 757 pg/mL 213-816 Aug 14, 2024 06:59 AM [facility] COMPREHENSIVE METABOLIC PANEL Specimen Type: PLASMA Comment: No hemolysis noted. Ordering Provider: SILVIA REDDY Report Released Date/Time: Aug 11, 2024 03:58 PM Reporting Lab: [facility] [facility] [id number] Performing Lab: [facility] [facility] [address] CREATININE 0.75 mg/dL 0.70-1.30 UREA NITROGEN 13.6 [...] 95.88 >60 Aug 14, 2024 06:59 AM [facility] CBC Specimen Type: BLOOD No comment entered. Ordering Provider: SILVIA REDDY Report Released Date/Time: Aug 11, 2024 03:58 PM Reporting Lab: [facility] [facility] [address] Performing Lab: [facility] [facility] [address] WBC 4.1 10*3/uL 3.6-11.2 RBC 3.20 10*6/uL [...] 10*3/uL 0.00-0.20 Aug 14, 2024 05:08 AM [facility] GLUCOSE,BLOOD-poct (STL) Specimen Type: BLOOD Comment: Test Performed by: [id number] Meter #: [id number] Ordering Provider: SILVIA REDDY Report Released Date/Time: Aug 14, 2024 05:52 AM Reporting Lab: [facility] [facility] [address] Performing Lab: [facility] [address] [facility] [address] GLUCOSE,BLOOD- poct (STL) 135 mg/dL H 72-Aug 13, 2024 04:27 PM [facility] GLUCOSE,BLOOD-poct (STL) Specimen Type: BLOOD Comment: Test Performed by: [id number] Meter #: [id number] Ordering Provider: SILVIA REDDY Report Released Date/Time: Aug 13, 2024 04:41 PM Reporting Lab: [facility] [address] [facility] [address] Performing Lab: [facility] [address] [place] [address] GLUCOSE,BLOOD- poct (STL) 181 mg/dL H -Aug 13, 2024 11:33 AM [facility] HOSPITAL GLUCOSE,BLOOD-poct (STL) Specimen Type: BLOOD Comment: Test Performed by: [id number] Meter #: [id number] Ordering Provider: SILVIA REDDY Report Released Date/Time: Aug 13, 2024 03:55 PM Reporting Lab: [facility] [address] Performing Lab: [facility] [address] GLUCOSE,BLOOD- poct (STL) 140 mg/dL H 72-Aug 13, 2024 05:54 AM [facility] GLUCOSE,BLOOD-poct (STL) Specimen Type: BLOOD Comment: Test Performed by: [id number] Meter #: [id number] Ordering Provider: SILVIA REDDY Report Released Date/Time: Aug 13, 2024 06:20 AM Reporting Lab: [facility] [place] [id number] Performing Lab: [facility] [place] [phone] GLUCOSE,BLOOD- poct (STL) 112 mg/dL H -Aug 12, 2024 04:35 PM [facility] GLUCOSE,BLOOD-poct (STL) Specimen Type: BLOOD Comment: Test Performed by: [id number] Meter #: [id number] Ordering Provider: SILVIA REDDY Report Released Date/Time: Aug 12, 2024 04:47 PM Reporting Lab: [facility] [address] Performing Lab: [facility] [address] GLUCOSE,BLOOD- poct (STL) 128 mg/dL H -Aug 12, 2024 11:26 AM [facility] GLUCOSE,BLOOD-poct (STL) Specimen Type: BLOOD Comment: Test Performed by: [id number] Meter #: [id number] Ordering Provider: SILVIA REDDY Report Released Date/Time: Aug 12, 2024 11:45 AM Reporting Lab: [facility] [address] Performing Lab: [facility] [address] GLUCOSE,BLOOD- poct (STL) 188 mg/dL H -Aug 12, 2024 06:13 AM [facility] GLUCOSE,BLOOD-poct (STL) Specimen Type: BLOOD Comment: Test Performed by: [id number] Meter #: [id number] Ordering Provider: SILVIA REDDY Report Released Date/Time: Aug 12, 2024 06:25 AM Reporting Lab: [facility] [facility] [address] Performing Lab: [facility] [address] GLUCOSE,BLOOD- poct (STL) 116 mg/dL H -Aug 11, 2024 04:10 PM [facility] GLUCOSE,BLOOD-poct (STL) Specimen Type: BLOOD Comment: Test Performed by: [id number] Meter #: [id number] Ordering Provider: SILVIA REDDY Report Released Date/Time: Aug 11, 2024 04:27 PM Reporting Lab: [facility] [facility] [address] Performing Lab: [facility] [address] GLUCOSE,BLOOD- poct (STL) 184 mg/dL H 72-99 Aug 11, 2024 01:44 PM [facility] MRSA SURVL NARES DNA [...] Aug 11, 2024 02:03 PM Reporting Lab: [facility] [address] [facility] [address] Performing Lab: [address] [address] MRSA SURVL NARES DNA Negative Negative Jul 20, 2024 11:18 AM [facility] APTT Specimen Type: PLASMA No comment entered. Ordering Provider: MANUEL BAIRD Report Released Date/Time: Jul 19, 2024 04:00 PM Reporting Lab: [facility] [address] [place] [phone] Performing Lab: [facility] [address] [place] [phone] APTT 32.1 s 26.7-39.9 Jul 20, 2024 11:18 AM [facility] PT/INR NEW (STL-MA) Specimen Type: PLASMA No comment entered. Ordering Provider: MANUEL BAIRD Report Released Date/Time: Jul 19, 2024 04:00 PM Reporting Lab: [facility] [address] [facility] [phone] Performing Lab: [facility] [address] [place] [phone] PROTIME 14.4 s H 9.4-12.5 INR VALUE 1.3 {INR} Jul 20, 2024 11:18 AM [facility] CBC Specimen Type: BLOOD No comment entered. Ordering Provider: MANUEL BAIRD Report Released Date/Time: Jul 19, 2024 04:00 PM Reporting Lab: [facility] [address] [place] [phone] Performing Lab: [facility] [address] [place] [phone] WBC 4.7 10*3/uL 3.6-11.2 RBC 4.86 10*6/uL [...] Source Aug 17, 2024 11:06 PM [facility] Aug 17, 2024 10:01 PM 7 [facility] Aug 17, 2024 09:[address] [facility] Aug 17, 2024 08:06 PM 97.1 78 110/67 18 95 0 [facility] Aug 17, 2024 11:29 AM 126/80 [facility] [...] ADVANCE DIRECTIVE DISCUSSION ERICK BARDALES [facility] Encounter Notes: All associated encounter notes This section contains the clinical notes associated to the Encounter. 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 Judit Perkins/JUSTYN Reddy DURATION: 75 minutes SUBJECTIVE: I have a cat OBJECTIVE: in room laying in bed and agreeable to pet therapy cat, [place] with 9 other veterans. used U/E to pet therapy cat, observed smiling and interacting with handler and cat. ASSESSMENT: readily agreeable to participate in therapy cat visit GOALS: SHORT-TERM GOALS/OBJECTIVES: IMPROVE INVOLVEMENT IN LEISURE OPPORTUNITIES [...] the following identified interests: Timeframe: 30 days PLAN: To continue to offer opportunities for recreation participation Animal Assisted Activity: The above activities were completed through the animal assisted interventions program, facilitated by a certified handler. provided informed consent/expressed desire to participate. Hand Hygiene: Completed before and after interacting with the therapy cat Engagement: Good, smiling and interacting with the therapy cat throughout session. fully participated in the activities facilitated above. /shen/ GAL FINNEGAN SUPERVISOR COMMUNICATIONS AND SIGNALS, CBLILLY Recreation Therapist, ECRS Signed: 08/17/2024 15:[address] [facility]
--- OUTSIDE RECORDS SUMMARY | 2024-11-17 04:15 | XMS_ITS ---
[place] DAILY HOSPITALIZATION DATA [facility] Encounter Summary Created on: November 16, 2024 CHET WALKER : 1950 Sex: Male Author Name [facility] [place] [facility] [place] Address [address] [place] [address] Care Team Providers Care Analyst Food And Beverage Name Role Phone MANUEL BAIRD Primary Care [...] PART A Apr 08, 2017 PART A [id number] ASHLEY WALKER PATIENT Selected Encounter This section includes the information on record at [place] for the Encounter. Date/Time Encounter Type Encounter Description Reason Pro vider Source Aug 17, 2024 11:31 AM Inpatient Visit DAILY HOSPITALIZATION DATA [facility] Encounter Template Text not used by [place] Plan of Treatment: Future Appointments (+ 6 [...] 24, 2024 10:00 AM AMBULATORY - MEDICINE [facility] Aug 24, 2024 10:30 AM AMBULATORY - MEDICINE [facility] Aug 30, 2024 09:30 AM AMBULATORY MEDICINE [facility] Aug 31, 2024 01:00 PM AMBULATORY - SURGERY [facility] Sep 21, 2024 01:30 PM AMBULATORY - MEDICINE [facility] Sep 22, 2024 11:00 AM AMBULATORY - MEDICINE [facility] Sep 29, 2024 12:30 PM AMBULATORY - MEDICINE [facility] Oct 02, 2024 09:30 AM AMBULATORY - MEDICINE [facility] Nov 20, 2024 10:30 AM AMBULATORY - SURGERY [facility] Nov 21, 2024 10:00 AM AMBULATORY - [...] BLD/PLAS PLASMA SP [facility] Aug 02, 2024 12:00 AM Laboratory - Chemistry Order CBC BLOOD STAT SP [facility] Aug 17, 2024 03:47 PM Consult Order [facility] Cons Bedside [facility] [...] Comment Aug 23, 2024 08:21 AM [facility] MAGNESIUM Specimen Type: PLASMA No comment entered. Ordering Provider: SILVIA REDDY Report Released Date/Time: Aug 22, 2024 11:26 AM Reporting Lab: [facility] [address] Performing Lab: [facility] [address] MAGNESIUM 1.8 mg/dL 1.6-2.6 Aug 23, 2024 08:21 AM [facility] CBC Specimen Type: BLOOD No comment entered. Ordering Provider: SILVIA REDDY Report Released Date/Time: Aug 22, 2024 11:19 AM Reporting Lab: [facility] [address] Performing Lab: [facility] [address] WBC 4.0 10*3/uL 3.6-11.2 RBC 3.65 10*6/uL [...] 0.00-0.20 Aug 23, 2024 05:12 AM [facility] GLUCOSE,BLOOD-poct (STL) Specimen Type: BLOOD Comment: Test Performed by: [id number] Meter #: [id number] Ordering Provider: SILVIA REDDY Report Released Date/Time: Aug 23, 2024 05:23 AM Reporting Lab: [facility] [address] Performing Lab: [facility] #1 [facility] [address] GLUCOSE,BLOOD- poct (STL) 99 mg/dL 72-99 Aug 23, 2024 02:45 AM [facility] OCCULT BLOOD FIT X1 SCREEN Specimen Type: FECES No comment entered. Ordering Provider: SILVIA REDDY Report Released Date/Time: Aug 22, 2024 11:23 AM Reporting Lab: [address] [address] Performing Lab: [address] [address] OCCULT BLOOD (FIT) #1 OF 1 Negative Negative Aug 22, 2024 07:30 PM [facility] OCCULT BLOOD FIT X1 SCREEN Specimen Type: FECES No comment entered. Ordering Provider: SILVIA REDDY Report Released Date/Time: Aug 22, 2024 11:23 AM Reporting Lab: [address] [address] Performing Lab: [address] [address] OCCULT BLOOD (FIT) #1 OF 1 Negative Negative Aug 22, 2024 06:15 PM [facility] OCCULT BLOOD FIT X1 SCREEN Specimen Type: FECES No comment entered. Ordering Provider: SILVIA REDDY Report Released Date/Time: Aug 22, 2024 11:23 AM Reporting Lab: [address] [address] Performing Lab: [facility] [address] [facility] [address] OCCULT BLOOD (FIT) #1 OF 1 Negative Negative Aug 22, 2024 04:24 PM [facility] GLUCOSE,BLOOD-poct (STL) Specimen Type: BLOOD Comment: Test Performed by: [id number] Meter #: [id number] Ordering Provider: SILVIA REDDY Report Released Date/Time: Aug 22, 2024 04:36 PM Reporting Lab: [facility] [address] Performing Lab: [facility] #1 [facility] [address] GLUCOSE,BLOOD- poct (STL) 176 mg/dL H -Aug 22, 2024 04:23 PM [facility] GLUCOSE,BLOOD-poct (STL) Specimen Type: BLOOD Comment: Test Performed by: [id number] Meter #: [id number] Ordering Provider: SILVIA REDDY Report Released Date/Time: Aug 22, 2024 04:36 PM Reporting Lab: [facility] [address] Performing Lab: [facility] [address] GLUCOSE,BLOOD- poct (STL) 221 mg/dL H 72-Aug 22, 2024 11:15 AM [facility] GLUCOSE,BLOOD-poct (STL) Specimen Type: BLOOD Comment: Test Performed by: [id number] Meter #: [id number] Ordering Provider: SILVIA REDDY Report Released Date/Time: Aug 22, 2024 11:27 AM Reporting Lab: [facility] [address] Performing Lab: [facility] [address] GLUCOSE,BLOOD- poct (STL) 140 mg/dL H 72-Aug 22, 2024 08:03 AM [facility] FERRITIN Specimen Type: SERUM No comment entered. Ordering Provider: JUDIT PERKINS Report Released Date/Time: Aug 18, 2024 11:01 AM Reporting Lab: [facility] [address] [facility] [address] Performing Lab: [facility] [address] [facility] [address] FERRITIN 79.50 ng/mL 22-275 Aug 22, 2024 08:03 AM [facility] IRON/TIBC PROFILE Specimen Type: SERUM No comment entered. Ordering Provider: JUDIT PERKINS Report Released Date/Time: Aug 18, 2024 11:01 AM Reporting Lab: [address] [address] Performing Lab: [address] [address] TIBC 283 ug/dL 250-450 TRANSFERRIN 226 mg/dL 163-344 IRON SATURATION 7 L 20-50 IRON 19 ug/dL L 65-175 Aug 22, 2024 08:03 AM [facility] B12 Specimen Type: SERUM No comment entered. Ordering Provider: JUDIT PERKINS Report Released Date/Time: Aug 18, 2024 11:01 AM Reporting Lab: [facility] [address] Performing Lab: [facility] #1 [facility] [address] B12 631 pg/mL 213-816 Aug 22, 2024 08:03 AM [facility] COMPREHENSIVE METABOLIC PANEL Specimen Type: PLASMA Comment: No hemolysis noted. Ordering Provider: SILVIA REDDY Report Released Date/Time: Aug 17, 2024 01:18 PM Reporting Lab: [facility] [address] [facility] [address] Performing Lab: [address] [address] CREATININE 0.80 mg/dL 0.7-1.3 UREA NITROGEN 9.7 [...] Reporting Lab: [facility] [address] Performing Lab: [facility] [address] WBC 3.5 10*3/uL L 3.6-11.2 RBC 3.23 [...] 0 Aug 22, 2024 05:03 AM [facility] GLUCOSE,BLOOD-poct (STL) Specimen Type: BLOOD Comment: Test Performed by: [id number] Meter #: [id number] Ordering Provider: SILVIA REDDY Report Released Date/Time: Aug 22, 2024 06:17 AM Reporting Lab: [facility] #1 [facility] [address] Performing Lab: [facility] #1 [facility] [address] GLUCOSE,BLOOD- poct (STL) 170 mg/dL H 72-Aug 21, 2024 04:32 PM [facility] GLUCOSE,BLOOD-poct (STL) Specimen Type: BLOOD Comment: Test Performed by: [id number] Meter #: [id number] Ordering Provider: SILVIA REDDY Report Released Date/Time: Aug 21, 2024 04:49 PM Reporting Lab: [facility] [address] Performing Lab: [facility] #1 [facility] [address] GLUCOSE,BLOOD- poct (STL) 169 mg/dL H -99 Aug 21, 2024 11:53 AM [facility] GLUCOSE,BLOOD-poct (STL) Specimen Type: BLOOD Comment: Test Performed by: [id number] Meter #: [id number] Ordering Provider: SILVIA REDDY Report Released Date/Time: Aug 21, 2024 12:11 PM Reporting Lab: [facility] #1 [facility] [address] Performing Lab: [facility] [address] GLUCOSE,BLOOD- poct (STL) 149 mg/dL H 72-99 Aug 21, 2024 05:10 AM [facility] GLUCOSE,BLOOD-poct (STL) Specimen Type: BLOOD Comment: Test Performed by: [id number] Meter #: [id number] Ordering Provider: SILVIA REDDY Report Released Date/Time: Aug 21, 2024 05:27 AM Reporting Lab: [facility] [place] [address] Performing Lab: [facility] #[address] [place] [phone] GLUCOSE,BLOOD- poct (STL) 118 mg/dL H 72-99 Aug 20, 2024 04:38 PM [facility] GLUCOSE,BLOOD-poct (STL) Specimen Type: BLOOD Comment: Test Performed by: [id number] Meter #: [id number] Ordering Provider: SILVIA REDDY Report Released Date/Time: Aug 21, 2024 01:55 AM Reporting Lab: [facility] #[address] [place] [address] Performing Lab: [facility] #[address] [place] [address] GLUCOSE,BLOOD- poct (STL) 169 mg/dL H 72-Aug 20, 2024 04:36 PM [facility] GLUCOSE,BLOOD-poct (STL) Specimen Type: BLOOD Comment: Test Performed by: [id number] Meter #: [id number] Ordering Provider: SILVIA REDDY Report Released Date/Time: Aug 21, 2024 01:55 AM Reporting Lab: [facility] [place] [address] Performing Lab: [facility] [place] [address] GLUCOSE,BLOOD- poct (STL) 395 mg/dL H 72-99 Aug 20, 2024 11:45 AM [facility] GLUCOSE,BLOOD-poct (STL) Specimen Type: BLOOD Comment: Test Performed by: [id number] Meter #: [id number] Ordering Provider: SILVIA REDDY Report Released Date/Time: Aug 20, 2024 11:56 AM Reporting Lab: [facility] [address] Performing Lab: [facility] #1 [facility] [address] GLUCOSE,BLOOD- poct (STL) 169 mg/dL H 72-Aug 20, 2024 05:06 AM [facility] GLUCOSE,BLOOD-poct (STL) Specimen Type: BLOOD Comment: Test Performed by: [id number] Meter #: [id number] Ordering Provider: SILVIA REDDY Report Released Date/Time: Aug 20, 2024 06:05 AM Reporting Lab: [facility] #1 [facility] [address] Performing Lab: [facility] #1 [facility] [address] GLUCOSE,BLOOD- poct (STL) 115 mg/dL H 72-Aug 19, 2024 04:23 PM [facility] GLUCOSE,BLOOD-poct (STL) Specimen Type: BLOOD Comment: Test Performed by: [id number] Meter #: [id number] Ordering Provider: SILVIA REDDY Report Released Date/Time: Aug 19, 2024 05:54 PM Reporting Lab: [facility] #1 [facility] [address] Performing Lab: [facility] #1 [facility] [address] GLUCOSE,BLOOD- poct (STL) 137 mg/dL H 72-99 Aug 19, 2024 11:28 AM [facility] GLUCOSE,BLOOD-poct (STL) Specimen Type: BLOOD Comment: Test Performed by: [id number] Meter #: [id number] Ordering Provider: SILVIA REDDY Report Released Date/Time: Aug 19, 2024 11:51 AM Reporting Lab: [facility] #1 [facility] [address] Performing Lab: [facility] #1 [facility] [address] GLUCOSE,BLOOD- poct (STL) 190 mg/dL H 72-99 Aug 19, 2024 05:21 AM [facility] GLUCOSE,BLOOD-poct (STL) Specimen Type: BLOOD Comment: Test Performed by: [id number] Meter #: [id number] Ordering Provider: SILVIA REDDY Report Released Date/Time: Aug 19, 2024 05:56 AM Reporting Lab: [facility] #1 [facility] [address] Performing Lab: [facility] #1 [facility] [address] GLUCOSE,BLOOD- poct (STL) 130 mg/dL H Aug 18, 2024 04:49 PM [facility] GLUCOSE,BLOOD-poct (STL) Specimen Type: BLOOD Comment: Test Performed by: [id number] Meter #: [id number] Ordering Provider: SILVIA REDDY Report Released Date/Time: Aug 18, 2024 05:01 PM Reporting Lab: [facility] [address] Performing Lab: [facility] #1 [facility] [address] GLUCOSE,BLOOD- poct (STL) 129 mg/dL H Aug 18, 2024 11:23 AM [facility] GLUCOSE,BLOOD-poct (STL) Specimen Type: BLOOD Comment: Test Performed by: [id number] Meter #: [id number] Ordering Provider: SILVIA REDDY Report Released Date/Time: Aug 18, 2024 11:41 AM Reporting Lab: [facility] #1 [facility] [address] Performing Lab: [facility] #1 [facility] [address] GLUCOSE,BLOOD- poct (STL) 180 mg/dL H Aug 18, 2024 05:08 AM [facility] GLUCOSE,BLOOD-poct (STL) Specimen Type: BLOOD Comment: Test Performed by: [id number] Meter #: [id number] Ordering Provider: SILVIA REDDY Report Released Date/Time: Aug 18, 2024 05:31 AM Reporting Lab: [facility] [place] [address] Performing Lab: [facility] #1 [facility] [address] GLUCOSE,BLOOD- poct (STL) 127 mg/dL H -Aug 17, 2024 07:32 PM [facility] GLUCOSE,BLOOD-poct (STL) Specimen Type: BLOOD Comment: Test Performed by: [id number] Meter #: [id number] Ordering Provider: SILVIA REDDY Report Released Date/Time: Aug 17, 2024 07:59 PM Reporting Lab: [facility] #1 [place] [address] Performing Lab: [facility] #1 [place] [address] GLUCOSE,BLOOD- poct (STL) 154 mg/dL H -Aug 17, 2024 04:24 PM [facility] GLUCOSE,BLOOD-poct (STL) Specimen Type: BLOOD Comment: Test Performed by: [id number] Meter #: [id number] Ordering Provider: SILVIA REDDY Report Released Date/Time: Aug 17, 2024 04:35 PM Reporting Lab: [facility] [place] [address] Performing Lab: [facility] [place] [address] GLUCOSE,BLOOD- poct (STL) 178 mg/dL H -Aug 17, 2024 05:09 AM [facility] GLUCOSE,BLOOD-poct (STL) Specimen Type: BLOOD Comment: Test Performed by: [id number] Meter #: [id number] Ordering Provider: SILVIA REDDY Report Released Date/Time: Aug 17, 2024 05:54 AM Reporting Lab: [facility] [address] Performing Lab: [facility] #1 [facility] [address] GLUCOSE,BLOOD- poct (STL) 124 mg/dL H 72-Aug 16, 2024 07:40 PM [facility] GLUCOSE,BLOOD-poct (STL) Specimen Type: BLOOD Comment: Test Performed by: [id number] Meter #: [id number] Ordering Provider: SILVIA REDDY Report Released Date/Time: Aug 16, 2024 08:28 PM Reporting Lab: [facility] #1 [facility] [address] Performing Lab: [facility] #1 [facility] [address] GLUCOSE,BLOOD- poct (STL) 144 mg/dL H -Aug 16, 2024 04:19 PM [facility] GLUCOSE,BLOOD-poct (STL) Specimen Type: BLOOD Comment: Test Performed by: [id number] Meter #: [id number] Ordering Provider: SILVIA REDDY Report Released Date/Time: Aug 16, 2024 04:45 PM Reporting Lab: [facility] #1 [facility] [address] Performing Lab: [facility] #1 [facility] [address] GLUCOSE,BLOOD- poct (STL) 138 mg/dL H 72-Aug 16, 2024 11:52 AM [facility] GLUCOSE,BLOOD-poct (STL) Specimen Type: BLOOD Comment: Test Performed by: [id number] Meter #: [id number] Ordering Provider: SILVIA REDDY Report Released Date/Time: Aug 16, 2024 12:04 PM Reporting Lab: [facility] #1 [facility] [address] Performing Lab: [facility] #1 [facility] [address] GLUCOSE,BLOOD- poct (STL) 135 mg/dL H 72-99 Aug 16, 2024 05:24 AM [facility] GLUCOSE,BLOOD-poct (STL) Specimen Type: BLOOD Comment: Test Performed by: [id number] Meter #: [id number] Ordering Provider: SILVIA REDDY Report Released Date/Time: Aug 16, 2024 05:38 AM Reporting Lab: [facility]1 [facility] [address] Performing Lab: [facility] #1 [facility] [address] GLUCOSE,BLOOD- poct (STL) 151 mg/dL H Aug 15, 2024 07:31 PM [facility] GLUCOSE,BLOOD-poct (STL) Specimen Type: BLOOD Comment: Test Performed by: [id number] Meter #: [id number] Ordering Provider: SILVIA REDDY Report Released Date/Time: Aug 15, 2024 08:07 PM Reporting Lab: [facility] [address] Performing Lab: [facility] [address] GLUCOSE,BLOOD- poct (STL) 173 mg/dL H Aug 15, 2024 04:18 PM [facility] GLUCOSE,BLOOD-poct (STL) Specimen Type: BLOOD Comment: Test Performed by: [id number] Meter #: [id number] Ordering Provider: SILVIA REDDY Report Released Date/Time: Aug 15, 2024 04:59 PM Reporting Lab: [facility] [address] Performing Lab: [facility] #1 [facility] [address] GLUCOSE,BLOOD- poct (STL) 136 mg/dL H Aug 15, 2024 04:16 PM [facility] GLUCOSE,BLOOD-poct (STL) Specimen Type: BLOOD Comment: Test Performed by: [id number] Meter #: [id number] Ordering Provider: SILVIA REDDY Report Released Date/Time: Aug 15, 2024 04:59 PM Reporting Lab: [facility] #1 [place] [address] Performing Lab: [facility] #1 [facility] [address] GLUCOSE,BLOOD- poct (STL) 194 mg/dL H 72-Aug 15, 2024 11:39 AM [facility] GLUCOSE,BLOOD-poct (STL) Specimen Type: BLOOD Comment: Test Performed by: [id number] Meter #: [id number] Ordering Provider: SILVIA REDDY Report Released Date/Time: Aug 15, 2024 12:00 PM Reporting Lab: [facility] #[address] [place] [address] Performing Lab: [facility] [place] [address] GLUCOSE,BLOOD- poct (STL) 127 mg/dL H -Aug 15, 2024 05:07 AM [facility] GLUCOSE,BLOOD-poct (STL) Specimen Type: BLOOD Comment: Test Performed by: [id number] Meter #: [id number] Ordering Provider: SILVIA REDDY Report Released Date/Time: Aug 15, 2024 06:14 AM Reporting Lab: [facility]1 [place] [address] Performing Lab: [facility] [place] [address] GLUCOSE,BLOOD- poct (STL) 151 mg/dL H -Aug 14, 2024 04:22 PM [facility] GLUCOSE,BLOOD-poct (STL) Specimen Type: BLOOD Comment: Test Performed by: [id number] Meter #: [id number] Ordering Provider: SILVIA REDDY Report Released Date/Time: Aug 14, 2024 04:52 PM Reporting Lab: [facility] [address] Performing Lab: [facility] [address] GLUCOSE,BLOOD- poct (STL) 129 mg/dL H 72-99 Aug 14, 2024 11:21 AM [facility] GLUCOSE,BLOOD-poct (STL) Specimen Type: BLOOD Comment: Test Performed by: [id number] Meter #: [id number] Ordering Provider: SILVIA REDDY Report Released Date/Time: Aug 14, 2024 11:37 AM Reporting Lab: [facility] [address] Performing Lab: [facility] [address] GLUCOSE,BLOOD- poct (STL) 135 mg/dL H 72-Aug 14, 2024 06:59 AM [facility] QUANTIFERON-TB,4 TUBE Specimen Type: BLOOD Comment: [...] For additional information, please refer to http://education. Advest[employer]/faq/WJS928 (This link is being provided for information/ educational purposes only.) Test Performed by [employer] [facility], [address] [place] [address] Tommie Garcia M.D., Ph.D., Director of Laboratories , [facility] [id number] Ordering Provider: SILVIA REDDY Report Released Date/Time: Aug 11, 2024 03:58 PM Reporting Lab: [facility] [address] [facility] [address] Performing Lab: [facility] [address] [place] [address] .NIL - QUANTIFERON 0.04 [IU]/mL .MITOGEN-NIL 0.39 [IU]/mL .QUANTIFERON INDETERMINATE NEGATIVE .TB1-NIL <0.00 [IU]/mL .TB2-NIL <0.00 [IU]/mL Aug 14, 2024 06:59 AM [facility] MAGNESIUM Specimen Type: PLASMA Comment: No hemolysis noted. Ordering Provider: SILVIA REDDY Report Released Date/Time: Aug 11, 2024 03:58 PM Reporting Lab: [facility] [place] [phone] Performing Lab: [facility] [address] MAGNESIUM 1.9 mg/dL 1.6-2.6 Aug 14, 2024 06:59 AM [facility] B12 Specimen Type: SERUM No comment entered. Ordering Provider: SILVIA REDDY Report Released Date/Time: Aug 11, 2024 03:58 PM Reporting Lab: [facility] [address] Performing Lab: [facility] [address] B12 757 pg/mL 213-816 Aug 14, 2024 06:59 AM [facility] FOLATE (STL-MA) Specimen Type: SERUM No comment entered. Ordering Provider: SILVIA REDDY Report Released Date/Time: Aug 11, 2024 03:58 PM Reporting Lab: [facility] [address] Performing Lab: [facility] [address] FOLATE (STL-MA) 6.8 ng/mL L 7-20 Aug 14, 2024 06:59 AM [facility] VITAMIN D, 25-HYDROXY Specimen Type: SERUM No comment entered. Ordering Provider: SILVIA REDDY Report Released Date/Time: Aug 11, 2024 03:58 PM Reporting Lab: [facility] [id number] Performing Lab: [facility] [place] [id number] VITAMIN D, 25-HYDROXY 8.9 ng/mL L 30-96 Aug 14, 2024 06:59 AM [facility] CBC Specimen Type: BLOOD No comment entered. Ordering Provider: SILVIA REDDY Report Released Date/Time: Aug 11, 2024 03:58 PM Reporting Lab: [facility] [place] [id number] Performing Lab: [facility] [place] [id number] WBC 4.1 10*3/uL 3.6-11.2 RBC 3.20 10*6/uL [...] 0.00-0.20 Aug 14, 2024 06:59 AM [facility] COMPREHENSIVE METABOLIC PANEL Specimen Type: PLASMA Comment: No hemolysis noted. Ordering Provider: SILVIA REDDY Report Released Date/Time: Aug 11, 2024 03:58 PM Reporting Lab: [facility] [place] [phone] Performing Lab: [facility] [place] [id number] CREATININE 0.75 mg/dL 0.70-1.30 [facility] NITROGEN 13.6 [...] >60 Aug 14, 2024 05:08 AM [facility] GLUCOSE,BLOOD-poct (STL) Specimen Type: BLOOD Comment: Test Performed by: [id number] Meter #: [id number] Ordering Provider: SILVIA REDDY Report Released Date/Time: Aug 14, 2024 05:52 AM Reporting Lab: [facility] [place] [phone] Performing Lab: [facility] [place] [phone] GLUCOSE,BLOOD- poct (STL) 135 mg/dL H 72-99 Aug 13, 2024 04:27 PM [facility] GLUCOSE,BLOOD-poct (STL) Specimen Type: BLOOD Comment: Test Performed by: [id number] Meter #: [id number] Ordering Provider: SILVIA REDDY Report Released Date/Time: Aug 13, 2024 04:41 PM Reporting Lab: [facility] [place] [phone] Performing Lab: [facility] [place] [id number] GLUCOSE,BLOOD- poct (STL) 181 mg/dL H -Aug 13, 2024 11:33 AM [facility] GLUCOSE,BLOOD-poct (STL) Specimen Type: BLOOD Comment: Test Performed by: [id number] Meter #: [id number] Ordering Provider: SILVIA REDDY Report Released Date/Time: Aug 13, 2024 03:55 PM Reporting Lab: [facility] [id number] Performing Lab: [facility] [place] [address] GLUCOSE,BLOOD- poct (STL) 140 mg/dL H Aug 13, 2024 05:54 AM [facility] GLUCOSE,BLOOD-poct (STL) Specimen Type: BLOOD Comment: Test Performed by: [id number] Meter #: [id number] Ordering Provider: SILVIA REDDY Report Released Date/Time: Aug 13, 2024 06:20 AM Reporting Lab: [facility] [id number] Performing Lab: [facility] [phone] GLUCOSE,BLOOD- poct (STL) 112 mg/dL H Aug 12, 2024 04:35 PM [facility] GLUCOSE,BLOOD-poct (STL) Specimen Type: BLOOD Comment: Test Performed by: [id number] Meter #: [id number] Ordering Provider: SILVIA REDDY Report Released Date/Time: Aug 12, 2024 04:47 PM Reporting Lab: [facility] [phone] Performing Lab: [facility] [id number] GLUCOSE,BLOOD- poct (STL) 128 mg/dL H 72-99 Aug 12, 2024 11:26 AM [facility] GLUCOSE,BLOOD-poct (STL) Specimen Type: BLOOD Comment: Test Performed by: [id number] Meter #: [id number] Ordering Provider: SILVIA REDDY Report Released Date/Time: Aug 12, 2024 11:45 AM Reporting Lab: [facility] [phone] Performing Lab: [facility] [place] [address] GLUCOSE,BLOOD- poct (STL) 188 mg/dL H -Aug 12, 2024 06:13 AM [facility] GLUCOSE,BLOOD-poct (STL) Specimen Type: BLOOD Comment: Test Performed by: [id number] Meter #: [id number] Ordering Provider: SILVIA RDEDY Report Released Date/Time: Aug 12, 2024 06:25 AM Reporting Lab: [facility] [phone] Performing Lab: [facility] [phone] GLUCOSE,BLOOD- poct (STL) 116 mg/dL H 72-99 Aug 11, 2024 04:10 PM [facility] GLUCOSE,BLOOD-poct (STL) Specimen Type: BLOOD Comment: Test Performed by: [id number] Meter #: [id number] Ordering Provider: SILVIA REDDY Report Released Date/Time: Aug 11, 2024 04:27 PM Reporting Lab: [facility] [place] [address] Performing Lab: [facility] [phone] GLUCOSE,BLOOD- poct (STL) 184 mg/dL H 72-99 Aug 11, 2024 01:44 PM [facility] MRSA SURVL NARES DNA Specimen Type: [...] Aug 11, 2024 02:03 PM Reporting Lab: [address] [address] Performing Lab: [address] [address] MRSA SURVL NARES DNA Negative Negative Jul 20, 2024 11:18 AM [facility] APTT Specimen Type: PLASMA No comment entered. Ordering Provider: MANUEL BAIRD Report Released Date/Time: Jul 19, 2024 04:00 PM Reporting Lab: [address] [address] Performing Lab: [address] [address] APTT 32.1 s 26.7-39.9 Jul 20, 2024 11:18 AM [facility] PT/INR NEW (L-MI) Specimen Type: PLASMA No comment entered. Ordering Provider: MANUEL BAIRD Report Released Date/Time: Jul 19, 2024 04:00 PM Reporting Lab: [address] [address] Performing Lab: [address] [address] PROTIME 14.4 s H 9.4-12.5 INR VALUE 1.3 {INR} Jul 20, 2024 11:18 AM [facility] CBC Specimen Type: BLOOD No comment entered. Ordering Provider: MANUEL BAIRD Report Released Date/Time: Jul 19, 2024 04:00 PM Reporting Lab: [facility] [address] [address] Performing Lab: [facility] [address] [address] WBC 4.7 10*3/uL 3.6-11.2 RBC 4.86 10*6/uL [...] Source Aug 17, 2024 11:06 PM 4 [facility] Aug 17, 2024 10:01 PM 7 [facility] Aug 17, 2024 09:56 PM 0 [facility] Aug 17, 2024 08:06 PM 97.1 78 110/67 18 95 0 [facility] Aug 17, 2024 11:29 AM 126/80 [facility] Advance Directives: All historical and current Section Date Range: From patient's date of to the date document was created. This section includes ALL of a patient's completed or amended [place] Advance and Rescinded Directives. The entries below indicate that a directive exists for the patient, but an actual copy is not included with this document. The data comes from all [place] facilities. Date Advance Directives Provider Source Jan 19, 2017 ADVANCE DIRECTIVE DISCUSSION ERICK BARDALES [facility]
--- OUTSIDE RECORDS SUMMARY | 2024-11-17 04:15 | XMS_ITS | Encounter Summary ---
Author Name [facility] [place] [facility] [place] Address [address] [place] [address] Care Team Providers Care Media Sales Executive Name Role Phone MANUEL BAIRD Primary Care [...] PART A Apr 08, 2017 PART A [id number] [phone] ASHLEY WALKER PATIENT Selected Encounter This section includes the information on record at [place] for the Encounter. 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 This section includes future appointments and future orders which are active, pending or scheduled. Future Appointments This section includes appointments that were scheduled to occur 6 months from the date of the Encounter, up to a maximum of 20 appointments. The data comes from all [facility]. Appointment Date/Time Appointment Type Appointme nt Facility Name Aug 24, 2024 10:00 AM AMBULATORY - MEDICINE [facility] Aug 24, 2024 10:30 AM AMBULATORY - MEDICINE [facility] Aug 30, 2024 09:[address] [facility] Aug 31, 2024 01:00 PM AMBULATORY - SURGERY [facility] Sep 21, 2024 01:[address] [facility] Sep 22, 2024 11:00 AM AMBULATORY - MEDICINE [facility] Sep 29, 2024 12:30 PM AMBULATORY - MEDICINE [facility] Oct 02, 2024 09:30 AM AMBULATORY - MEDICINE [facility] Nov 20, 2024 10:30 AM AMBULATORY - SURGERY [facility] Nov 21, 2024 10:00 AM AMBULATORY - NONE [facility] Dec 11, 2024 10:30 AM AMBULATORY - MEDICINE [facility] Active, Pending, and Scheduled Orders This section includes a listing of several types of active, pending, and scheduled orders, including clinic medications orders, diagnostic test orders, procedure orders and consult orders; where the start date of the order is 45 days before the date of the Encounter or 45 days after the date of theEncounter. The data comes from all [facility]. Test Date/Time Test Type Test Details Facility Name Aug 02, 2024 12:00 AM Laboratory - Chemistry Order CBC BLOOD STAT SP [facility] Aug 02, 2024 12:00 AM Laboratory - Chemistry Order COMPREHENSIVE METABOLIC PANEL GREEN LI/HEP BLD/PLAS PLASMA SP [facility] Aug 17, 2024 03:47 PM Consult Order [facility] Cons Bedside [facility] Lab Results: +/- 30 days of [...] Range Comment Aug 23, 2024 08:21 AM [facility] MAGNESIUM Specimen Type: PLASMA No comment entered. Ordering Provider: SILVIA REDDY Report Released Date/Time: Aug 22, 2024 11:26 AM Reporting Lab: [facility] [address] [facility] [address] Performing Lab: [facility] [address] MAGNESIUM 1.8 mg/dL 1.6-2.6 Aug 23, 2024 08:21 AM [facility] CBC Specimen Type: BLOOD No comment entered. Ordering Provider: SILVIA REDDY Report Released Date/Time: Aug 22, 2024 11:19 AM Reporting Lab: [facility] [facility] [address] Performing Lab: [facility] [address] WBC 4.0 10*3/uL 3.6-11.2 RBC 3.65 10*6/uL [...] 10*3/uL 0.00-0.20 Aug 23, 2024 05:12 AM [facility] GLUCOSE,BLOOD-poct (STL) Specimen Type: BLOOD Comment: Test Performed by: [id number] Meter #: [id number] Ordering Provider: SILVIA REDDY Report Released Date/Time: Aug 23, 2024 05:23 AM Reporting Lab: [facility] [facility] [address] Performing Lab: [facility] [address] GLUCOSE,BLOOD- poct (STL) 99 mg/dL 72-99 Aug 23, 2024 02:45 AM [facility] OCCULT BLOOD FIT X1 SCREEN Specimen Type: FECES No comment entered. Ordering Provider: SILVIA REDDY Report Released Date/Time: Aug 22, 2024 11:23 AM Reporting Lab: [address] [address] Performing Lab: [address] [address] OCCULT BLOOD (FIT) #1 OF 1 Negative Negative Aug 22, 2024 07:30 PM [facility] OCCULT BLOOD FIT X1 SCREEN Specimen Type: FECES No comment entered. Ordering Provider: SILVIA REDDY Report Released Date/Time: Aug 22, 2024 11:23 AM Reporting Lab: [address] [address] Performing Lab: [address] [address] OCCULT BLOOD (FIT) #1 OF 1 Negative Negative Aug 22, 2024 06:15 PM [facility] OCCULT BLOOD FIT X1 SCREEN Specimen Type: FECES No comment entered. Ordering Provider: SILVIA REDDY Report Released Date/Time: Aug 22, 2024 11:23 AM Reporting Lab: [facility] [address] [facility] [address] Performing Lab: [address] [address] OCCULT BLOOD (FIT) #1 OF 1 Negative Negative Aug 22, 2024 04:24 PM [facility] GLUCOSE,BLOOD-poct (STL) Specimen Type: BLOOD Comment: Test Performed by: [id number] Meter #: [id number] Ordering Provider: SILVIA REDDY Report Released Date/Time: Aug 22, 2024 04:36 PM Reporting Lab: [facility] [facility] [address] Performing Lab: [facility] [address] [facility] [address] GLUCOSE,BLOOD- poct (STL) 176 mg/dL H 72-99 Aug 22, 2024 04:23 PM [facility] GLUCOSE,BLOOD-poct (STL) Specimen Type: BLOOD Comment: Test Performed by: [id number] Meter #: [id number] Ordering Provider: SILVIA REDDY Report Released Date/Time: Aug 22, 2024 04:36 PM Reporting Lab: [facility] [facility] [address] Performing Lab: [facility] [address] [facility] [address] GLUCOSE,BLOOD- poct (STL) 221 mg/dL H 72-99 Aug 22, 2024 11:15 AM [facility] GLUCOSE,BLOOD-poct (STL) Specimen Type: BLOOD Comment: Test Performed by: [id number] Meter #: [id number] Ordering Provider: SILVIA REDDY Report Released Date/Time: Aug 22, 2024 11:27 AM Reporting Lab: [facility] [facility] [address] Performing Lab: [facility] [address] [facility] [address] GLUCOSE,BLOOD- poct (STL) 140 mg/dL H 72-99 Aug 22, 2024 08:03 AM [facility] FERRITIN Specimen Type: SERUM No comment entered. Ordering Provider: JUDIT PERKINS Report Released Date/Time: Aug 18, 2024 11:01 AM Reporting Lab: [facility] [address] [facility] [address] Performing Lab: [facility] [address] [place] [address] FERRITIN 79.50 ng/mL 22-275 Aug 22, 2024 08:03 AM [facility] B12 Specimen Type: SERUM No comment entered. Ordering Provider: JUDIT PERKINS Report Released Date/Time: Aug 18, 2024 11:01 AM Reporting Lab: [facility] [address] [facility] [address] Performing Lab: [facility] [address] [facility] [address] B12 631 pg/mL 213-816 Aug 22, 2024 08:03 AM [facility] IRON/TIBC PROFILE Specimen Type: SERUM No comment entered. Ordering Provider: JUDIT PERKINS Report Released Date/Time: Aug 18, 2024 11:01 AM Reporting Lab: [facility] [address] [facility] [address] Performing Lab: [facility] [address] [facility] [address] TIBC 283 ug/dL 250-450 TRANSFERRIN 226 mg/dL 163-344 IRON SATURATION 7 L 20-50 IRON 19 ug/dL L 65-175 Aug 22, 2024 08:03 AM [facility] COMPREHENSIVE METABOLIC PANEL Specimen Type: PLASMA Comment: No hemolysis noted. Ordering Provider: SILVIA REDDY Report Released Date/Time: Aug 17, 2024 01:18 PM Reporting Lab: [facility] [address] [facility] [address] Performing Lab: [facility] [address] [facility] [address] CREATININE 0.80 mg/dL 0.7-1.3 UREA NITROGEN 9.7 [...] 94.0 >60 Aug 22, 2024 08:03 AM [facility] CBC Specimen Type: BLOOD No comment entered. Ordering Provider: SILVIA REDDY Report Released Date/Time: Aug 17, 2024 01:18 PM Reporting Lab: [facility] [facility] [address] Performing Lab: [facility] [facility] [address] WBC 3.5 10*3/uL L 3.6-11.2 RBC 3.23 [...] NRBC% 0 Aug 22, 2024 05:03 AM [facility] GLUCOSE,BLOOD-poct (STL) Specimen Type: BLOOD Comment: Test Performed by: [id number] Meter #: [id number] Ordering Provider: SILVIA REDDY Report Released Date/Time: Aug 22, 2024 06:17 AM Reporting Lab: [facility] [place] [address] Performing Lab: [facility] [place] [address] GLUCOSE,BLOOD- poct (STL) 170 mg/dL H 72-99 Aug 21, 2024 04:32 PM [facility] GLUCOSE,BLOOD-poct (STL) Specimen Type: BLOOD Comment: Test Performed by: [id number] Meter #: [id number] Ordering Provider: SILVIA REDDY Report Released Date/Time: Aug 21, 2024 04:49 PM Reporting Lab: [facility] [place] [address] Performing Lab: [facility] [place] [address] GLUCOSE,BLOOD- poct (STL) 169 mg/dL H 72-99 Aug 21, 2024 11:53 AM [facility] GLUCOSE,BLOOD-poct (STL) Specimen Type: BLOOD Comment: Test Performed by: [id number] Meter #: [id number] Ordering Provider: SILVIA REDDY Report Released Date/Time: Aug 21, 2024 12:11 PM Reporting Lab: [facility] [place] [address] Performing Lab: [facility] [facility] [address] GLUCOSE,BLOOD- poct (STL) 149 mg/dL H -Aug 21, 2024 05:10 AM [facility] GLUCOSE,BLOOD-poct (STL) Specimen Type: BLOOD Comment: Test Performed by: [id number] Meter #: [id number] Ordering Provider: SILVIA REDDY Report Released Date/Time: Aug 21, 2024 05:27 AM Reporting Lab: [facility] [facility] [address] Performing Lab: [facility] [address] [facility] [address] GLUCOSE,BLOOD- poct (STL) 118 mg/dL H -Aug 20, 2024 04:38 PM [facility] GLUCOSE,BLOOD-poct (STL) Specimen Type: BLOOD Comment: Test Performed by: [id number] Meter #: [id number] Ordering Provider: SILVIA REDDY Report Released Date/Time: Aug 21, 2024 01:55 AM Reporting Lab: [facility] [facility] [address] Performing Lab: [facility] [address] [facility] [address] GLUCOSE,BLOOD- poct (STL) 169 mg/dL H Aug 20, 2024 04:36 PM [facility] GLUCOSE,BLOOD-poct (STL) Specimen Type: BLOOD Comment: Test Performed by: [id number] Meter #: [id number] Ordering Provider: SILVIA REDDY Report Released Date/Time: Aug 21, 2024 01:55 AM Reporting Lab: [facility] [facility] [address] Performing Lab: [facility] [facility] [address] GLUCOSE,BLOOD- poct (STL) 395 mg/dL H Aug 20, 2024 11:45 AM [facility] GLUCOSE,BLOOD-poct (STL) Specimen Type: BLOOD Comment: Test Performed by: [id number] Meter #: [id number] Ordering Provider: SILVIA ERDDY Report Released Date/Time: Aug 20, 2024 11:56 AM Reporting Lab: [facility] [facility] [address] Performing Lab: [facility] [address] GLUCOSE,BLOOD- poct (STL) 169 mg/dL H 72-Aug 20, 2024 05:06 AM [facility] GLUCOSE,BLOOD-poct (STL) Specimen Type: BLOOD Comment: Test Performed by: [id number] Meter #: [id number] Ordering Provider: SILVIA REDDY Report Released Date/Time: Aug 20, 2024 06:05 AM Reporting Lab: [facility] [facility] [address] Performing Lab: [facility] [address] GLUCOSE,BLOOD- poct (STL) 115 mg/dL H -Aug 19, 2024 04:23 PM [facility] GLUCOSE,BLOOD-poct (STL) Specimen Type: BLOOD Comment: Test Performed by: [id number] Meter #: [id number] Ordering Provider: SILVIA REDDY Report Released Date/Time: Aug 19, 2024 05:54 PM Reporting Lab: [facility] [facility] [address] Performing Lab: [facility] [address] GLUCOSE,BLOOD- poct (STL) 137 mg/dL H 72-Aug 19, 2024 11:28 AM [facility] GLUCOSE,BLOOD-poct (STL) Specimen Type: BLOOD Comment: Test Performed by: [id number] Meter #: [id number] Ordering Provider: SILVIA REDDY Report Released Date/Time: Aug 19, 2024 11:51 AM Reporting Lab: [facility] [facility] [address] Performing Lab: [facility] [facility] [address] GLUCOSE,BLOOD- poct (STL) 190 mg/dL H 72-Aug 19, 2024 05:21 AM [facility] GLUCOSE,BLOOD-poct (STL) Specimen Type: BLOOD Comment: Test Performed by: [id number] Meter #: [id number] Ordering Provider: SILVIA REDDY Report Released Date/Time: Aug 19, 2024 05:56 AM Reporting Lab: [facility] [facility] [address] Performing Lab: [facility] [address] GLUCOSE,BLOOD- poct (STL) 130 mg/dL H -Aug 18, 2024 04:49 PM [facility] GLUCOSE,BLOOD-poct (STL) Specimen Type: BLOOD Comment: Test Performed by: [id number] Meter #: [id number] Ordering Provider: SILVIA REDDY Report Released Date/Time: Aug 18, 2024 05:01 PM Reporting Lab: [facility] [facility] [address] Performing Lab: [facility] [facility] [address] GLUCOSE,BLOOD- poct (STL) 129 mg/dL H 72-99 Aug 18, 2024 11:23 AM [facility] GLUCOSE,BLOOD-poct (STL) Specimen Type: BLOOD Comment: Test Performed by: [id number] Meter #: [id number] Ordering Provider: SILVIA REDDY Report Released Date/Time: Aug 18, 2024 11:41 AM Reporting Lab: [facility] [facility] [address] Performing Lab: [facility] [facility] [address] GLUCOSE,BLOOD- poct (STL) 180 mg/dL H Aug 18, 2024 05:08 AM [facility] GLUCOSE,BLOOD-poct (STL) Specimen Type: BLOOD Comment: Test Performed by: [id number] Meter #: [id number] Ordering Provider: SILVIA REDDY Report Released Date/Time: Aug 18, 2024 05:31 AM Reporting Lab: [facility] [facility] [address] Performing Lab: [facility] [facility] [address] GLUCOSE,BLOOD- poct (STL) 127 mg/dL H Aug 17, 2024 07:32 PM [facility] GLUCOSE,BLOOD-poct (STL) Specimen Type: BLOOD Comment: Test Performed by: [id number] Meter #: [id number] Ordering Provider: SILVIA REDDY Report Released Date/Time: Aug 17, 2024 07:59 PM Reporting Lab: [facility] [facility] [address] Performing Lab: [facility] [facility] [address] GLUCOSE,BLOOD- poct (STL) 154 mg/dL H Aug 17, 2024 04:24 PM [facility] GLUCOSE,BLOOD-poct (STL) Specimen Type: BLOOD Comment: Test Performed by: [id number] Meter #: [id number] Ordering Provider: SILVIA REDDY Report Released Date/Time: Aug 17, 2024 04:35 PM Reporting Lab: [facility] [facility] [address] Performing Lab: [facility] [facility] [address] GLUCOSE,BLOOD- poct (STL) 178 mg/dL H Aug 17, 2024 05:09 AM [facility] GLUCOSE,BLOOD-poct (STL) Specimen Type: BLOOD Comment: Test Performed by: [id number] Meter #: [id number] Ordering Provider: SILVIA REDDY Report Released Date/Time: Aug 17, 2024 05:54 AM Reporting Lab: [facility] [facility] [address] Performing Lab: [facility] [address] GLUCOSE,BLOOD- poct (STL) 124 mg/dL H -Aug 16, 2024 07:40 PM [facility] GLUCOSE,BLOOD-poct (STL) Specimen Type: BLOOD Comment: Test Performed by: [id number] Meter #: [id number] Ordering Provider: SILVIA REDDY Report Released Date/Time: Aug 16, 2024 08:28 PM Reporting Lab: [facility] [facility] [address] Performing Lab: [facility] [address] GLUCOSE,BLOOD- poct (STL) 144 mg/dL H -Aug 16, 2024 04:19 PM [facility] GLUCOSE,BLOOD-poct (STL) Specimen Type: BLOOD Comment: Test Performed by: [id number] Meter #: [id number] Ordering Provider: SILVIA REDDY Report Released Date/Time: Aug 16, 2024 04:45 PM Reporting Lab: [facility] [facility] [address] Performing Lab: [facility] [address] GLUCOSE,BLOOD- poct (STL) 138 mg/dL H -Aug 16, 2024 11:52 AM [facility] GLUCOSE,BLOOD-poct (STL) Specimen Type: BLOOD Comment: Test Performed by: [id number] Meter #: [id number] Ordering Provider: SILVIA REDDY Report Released Date/Time: Aug 16, 2024 12:04 PM Reporting Lab: [facility] [facility] [address] Performing Lab: [facility] [facility] [address] GLUCOSE,BLOOD- poct (STL) 135 mg/dL H 72-Aug 16, 2024 05:24 AM [facility] GLUCOSE,BLOOD-poct (STL) Specimen Type: BLOOD Comment: Test Performed by: [id number] Meter #: [id number] Ordering Provider: SILVIA REDDY Report Released Date/Time: Aug 16, 2024 05:38 AM Reporting Lab: [facility] [facility] [address] Performing Lab: [facility] [address] GLUCOSE,BLOOD- poct (STL) 151 mg/dL H -Aug 15, 2024 07:31 PM [facility] GLUCOSE,BLOOD-poct (STL) Specimen Type: BLOOD Comment: Test Performed by: [id number] Meter #: [id number] Ordering Provider: SILVIA REDDY Report Released Date/Time: Aug 15, 2024 08:07 PM Reporting Lab: [facility] [facility] [address] Performing Lab: [facility] [facility] [address] GLUCOSE,BLOOD- poct (STL) 173 mg/dL H 72-Aug 15, 2024 04:18 PM [facility] GLUCOSE,BLOOD-poct (STL) Specimen Type: BLOOD Comment: Test Performed by: [id number] Meter #: [id number] Ordering Provider: SILVIA REDDY Report Released Date/Time: Aug 15, 2024 04:59 PM Reporting Lab: [facility] [facility] [address] Performing Lab: [facility] [facility] [address] GLUCOSE,BLOOD- poct (STL) 136 mg/dL H Aug 15, 2024 04:16 PM [facility] GLUCOSE,BLOOD-poct (STL) Specimen Type: BLOOD Comment: Test Performed by: [id number] Meter #: [id number] Ordering Provider: SILVIA REDDY Report Released Date/Time: Aug 15, 2024 04:59 PM Reporting Lab: [facility] [facility] [address] Performing Lab: [facility] [facility] [address] GLUCOSE,BLOOD- poct (STL) 194 mg/dL H Aug 15, 2024 11:39 AM [facility] GLUCOSE,BLOOD-poct (STL) Specimen Type: BLOOD Comment: Test Performed by: [id number] Meter #: [id number] Ordering Provider: SILVIA REDDY Report Released Date/Time: Aug 15, 2024 12:00 PM Reporting Lab: [facility] [facility] [address] Performing Lab: [facility] [facility] [address] GLUCOSE,BLOOD- poct (STL) 127 mg/dL H Aug 15, 2024 05:07 AM [facility] GLUCOSE,BLOOD-poct (STL) Specimen Type: BLOOD Comment: Test Performed by: [id number] Meter #: [id number] Ordering Provider: SILVAI REDDY Report Released Date/Time: Aug 15, 2024 06:14 AM Reporting Lab: [facility] [facility] [address] Performing Lab: [facility] [facility] [address] GLUCOSE,BLOOD- poct (STL) 151 mg/dL H Aug 14, 2024 04:22 PM [facility] GLUCOSE,BLOOD-poct (STL) Specimen Type: BLOOD Comment: Test Performed by: [id number] Meter #: [id number] Ordering Provider: SILVIA REDDY Report Released Date/Time: Aug 14, 2024 04:52 PM Reporting Lab: [facility] [facility] [address] Performing Lab: [facility] [facility] [address] GLUCOSE,BLOOD- poct (STL) 129 mg/dL H 72-Aug 14, 2024 11:21 AM [facility] GLUCOSE,BLOOD-poct (STL) Specimen Type: BLOOD Comment: Test Performed by: [id number] Meter #: [id number] Ordering Provider: SILVIA REDDY Report Released Date/Time: Aug 14, 2024 11:37 AM Reporting Lab: [facility] [facility] [id number] Performing Lab: [facility] [facility] [id number] GLUCOSE,BLOOD- poct (STL) 135 mg/dL H 72-Aug 14, 2024 06:59 AM [facility] QUANTIFERON-TB,4 TUBE Specimen Type: BLOOD [...] For additional information, please refer to http://education. [employer]. Etelos/faq/FFL955 (This link is being provided for information/ educational purposes only.) Test Performed by [employer], [employer] [facility], [address] [place], [place] Tommie Garcia M.D., Ph.D., Director of Laboratories , [facility] [id number] Ordering Provider: SILVIA REDDY Report Released Date/Time: Aug 11, 2024 03:58 PM Reporting Lab: [facility] [address] [facility] [address] Performing Lab: [facility] [address] [facility] .NIL - QUANTIFERON 0.04 [IU]/mL .MITOGEN-NIL 0.39 [IU]/mL .QUANTIFERON INDETERMINATE NEGATIVE .TB1-NIL <0.00 [IU]/mL .TB2-NIL <0.00 [IU]/mL Aug 14, 2024 06:59 AM [facility] MAGNESIUM Specimen Type: PLASMA Comment: No hemolysis noted. Ordering Provider: SILVIA REDDY Report Released Date/Time: Aug 11, 2024 03:58 PM Reporting Lab: [facility] [facility] [address] Performing Lab: [facility] [address] [facility] [address] MAGNESIUM 1.9 mg/dL 1.6-2.6 Aug 14, 2024 06:59 AM [facility] B12 Specimen Type: SERUM No comment entered. Ordering Provider: SILVIA REDDY Report Released Date/Time: Aug 11, 2024 03:58 PM Reporting Lab: [facility] [facility] [address] Performing Lab: [facility] [address] [place] [phone] B12 757 pg/mL 213-816 Aug 14, 2024 06:59 AM [facility] FOLATE (L-MA) Specimen Type: SERUM No comment entered. Ordering Provider: SILVIA REDDY Report Released Date/Time: Aug 11, 2024 03:58 PM Reporting Lab: [facility] [address] [place] [address] Performing Lab: [facility] [address] [place] [address] FOLATE (L-MA) 6.8 ng/mL L 7-20 Aug 14, 2024 06:59 AM [facility] VITAMIN D, 25-HYDROXY Specimen Type: SERUM No comment entered. Ordering Provider: SILVIA REDDY Report Released Date/Time: Aug 11, 2024 03:58 PM Reporting Lab: [facility] [address] [place] [address] Performing Lab: [facility] [address] [place] [address] VITAMIN D, 25-HYDROXY 8.9 ng/mL L 30-96 Aug 14, 2024 06:59 AM [facility] COMPREHENSIVE METABOLIC PANEL Specimen Type: PLASMA Comment: No hemolysis noted. Ordering Provider: SILVIA REDDY Report Released Date/Time: Aug 11, 2024 03:58 PM Reporting Lab: [facility] [place] [address] Performing Lab: [facility] [place] [address] CREATININE 0.75 mg/dL 0.70-1.30 UREA NITROGEN 13.6 [...] 2024 06:59 AM [facility] CBC Specimen Type: BLOOD No comment entered. Ordering Provider: SILVIA REDDY Report Released Date/Time: Aug 11, 2024 03:58 PM Reporting Lab: [facility] [address] Performing Lab: [facility] [facility] [address] WBC 4.1 10*3/uL 3.6-11.2 RBC 3.20 10*6/uL [...] 2024 05:08 AM [facility] GLUCOSE,BLOOD-poct (STL) Specimen Type: BLOOD Comment: Test Performed by: [id number] Meter #: [id number] Ordering Provider: SILVIA REDDY Report Released Date/Time: Aug 14, 2024 05:52 AM Reporting Lab: [facility] [facility] [address] Performing Lab: [facility] [facility] [address] GLUCOSE,BLOOD- poct (STL) 135 mg/dL H 72-Aug 13, 2024 04:27 PM [facility] GLUCOSE,BLOOD-poct (STL) Specimen Type: BLOOD Comment: Test Performed by: [id number] Meter #: [id number] Ordering Provider: SILVIA REDDY Report Released Date/Time: Aug 13, 2024 04:41 PM Reporting Lab: [facility] [address] Performing Lab: [facility] [facility] [address] GLUCOSE,BLOOD- poct (STL) 181 mg/dL H Aug 13, 2024 11:33 AM [facility] GLUCOSE,BLOOD-poct (STL) Specimen Type: BLOOD Comment: Test Performed by: [id number] Meter #: [id number] Ordering Provider: SILVIA REDDY Report Released Date/Time: Aug 13, 2024 03:55 PM Reporting Lab: [facility] [facility] [address] Performing Lab: [facility] [facility] [address] GLUCOSE,BLOOD- poct (STL) 140 mg/dL H Aug 13, 2024 05:54 AM [facility] GLUCOSE,BLOOD-poct (STL) Specimen Type: BLOOD Comment: Test Performed by: [id number] Meter #: [id number] Ordering Provider: SILVIA REDDY Report Released Date/Time: Aug 13, 2024 06:20 AM Reporting Lab: [facility] [facility] [address] Performing Lab: [facility] [facility] [address] GLUCOSE,BLOOD- poct (STL) 112 mg/dL H -Aug 12, 2024 04:35 PM [facility] GLUCOSE,BLOOD-poct (STL) Specimen Type: BLOOD Comment: Test Performed by: [id number] Meter #: [id number] Ordering Provider: SILVIA REDDY Report Released Date/Time: Aug 12, 2024 04:47 PM Reporting Lab: [facility] [facility] [address] Performing Lab: [facility] [facility] [address] GLUCOSE,BLOOD- poct (STL) 128 mg/dL H -Aug 12, 2024 11:26 AM [facility] GLUCOSE,BLOOD-poct (STL) Specimen Type: BLOOD Comment: Test Performed by: [id number] Meter #: [id number] Ordering Provider: SILVIA REDDY Report Released Date/Time: Aug 12, 2024 11:45 AM Reporting Lab: [facility] [facility] [address] Performing Lab: [facility] [address] GLUCOSE,BLOOD- poct (STL) 188 mg/dL H -Aug 12, 2024 06:13 AM [facility] GLUCOSE,BLOOD-poct (STL) Specimen Type: BLOOD Comment: Test Performed by: [id number] Meter #: [id number] Ordering Provider: SILVIA REDDY Report Released Date/Time: Aug 12, 2024 06:25 AM Reporting Lab: [facility] [facility] [address] Performing Lab: [facility] [facility] [address] GLUCOSE,BLOOD- poct (STL) 116 mg/dL H -Aug 11, 2024 04:10 PM [facility] GLUCOSE,BLOOD-poct (STL) Specimen Type: BLOOD Comment: Test Performed by: [id number] Meter #: [id number] Ordering Provider: SILVIA REDDY Report Released Date/Time: Aug 11, 2024 04:27 PM Reporting Lab: [facility] [facility] [address] Performing Lab: [facility] [facility] [address] GLUCOSE,BLOOD- poct (STL) 184 mg/dL H 72-99 Aug 11, 2024 01:44 PM [facility] MRSA SURVL NARES DNA Specimen [...] Aug 11, 2024 02:03 PM Reporting Lab: [facility] [address] [place] [phone] Performing Lab: [facility] [address] [place] [phone] MRSA SURVL NARES DNA Negative Negative Jul 20, 2024 11:18 AM [facility] APTT Specimen Type: PLASMA No comment entered. Ordering Provider: MANUEL BAIRD Report Released Date/Time: Jul 19, 2024 04:00 PM Reporting Lab: [facility] [address] [place] [phone] Performing Lab: [facility] [address] [place] [phone] APTT 32.1 s 26.7-39.9 Jul 20, 2024 11:18 AM [facility] PT/INR NEW (STL-MA) Specimen Type: PLASMA No comment entered. Ordering Provider: MANUEL BAIRD Report Released Date/Time: Jul 19, 2024 04:00 PM Reporting Lab: [facility] [address] [facility] [address] Performing Lab: [facility] [address] [facility] [address] PROTIME 14.4 s H 9.4-12.5 INR VALUE 1.3 {INR} Jul 20, 2024 11:18 AM [facility] CBC Specimen Type: BLOOD No comment entered. Ordering Provider: MANUEL BAIRD Report Released Date/Time: Jul 19, 2024 04:00 PM Reporting Lab: [facility] [address] [facility] [address] Performing Lab: [facility] [address] [facility] [address] WBC 4.7 10*3/uL 3.6-11.2 RBC 4.86 10*6/uL [...] Source Aug 17, 2024 11:06 PM 4 [facility] Aug 17, 2024 10:01 PM 7 [facility] Aug 17, 2024 09:56 PM 0 [facility] Aug 17, 2024 08:06 PM 97.1 78 110/67 18 95 0 [facility] Aug 17, 2024 11:29 AM 126/80 [facility] Advance Directives: All [...] DIRECTIVE DISCUSSION ERICK BARDALES [facility] Encounter Notes: All associated encounter notes This section contains the clinical notes associated to the Encounter. 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 Pectoris(ICD-10-CM I25.729) Reason for request: Eval and tx Precautions: Cardiac prec s/p CABG-including no lifting,push/pull >10# x 4 weeks; Falls Initial date of OT eval: 08/14/24 Progress note due: 08/28/24 S: Vet states he is agreabel to tub transfer this date Pain Level: None O: participated in the following tasks this date in OT- - Vet completed tub transfer with SBA using grab bar and tub rail with extended conversation on bathroom set up and with OT to order HHS, shower chair, tub rail and 1-16,1-24 inch grab bars - Vet completed standing balance activity with SBA with minimal posterior LOB - Vet completed 2x10 reps BUE HEP using 2# within precautions Education: [place] was ready to learn and verbalized understanding of the following information this date. _X_Self Care _X_Transfer training _X_HEP _X_Call light/alert nursing for mobility _X_Adaptive equipment use ___Modality used ___Other Equipment Issued: None Equipment pending/not ordered: None A: Vet admitted to [facility] following CABG and pacemaker placement. Vet reports [...] retraining along with DME/AE education as needed. Barriers: None would benefit from OT for the continuation of the following plan of care: Treatment Plan: _x_ADLs _x_Transfers _X_endurance _x_Adaptive equipment Assessment Discharge recommendation: Return home with son assist for IADL. Equipment ordered: HHSH, Shower chair, Tub rail, 1-16 ,1-24 grab bars P: Continue current OT treatment plan and goals. To see vet 3-5x per week. SHORT TERM GOALS: To be achieved in (2 weeks). 1. will demo UB drsg with Indep 2. Vet will demo LB drsg with Indep and AE prn. 3. Vet will demo toilet transfer with Mod I and DME prn. 4. Vet will demo bed->chair transfer with Mod I and DME prn. - ONGOING 5. Vet will demo Mod I for bathing tasks 6. Vet will demo Mod I for tub transfer-progressing 7. Vet will participate in Short Blessed Test Time in/out: :30am-12:00am Total Minutes: 25 min Evaluating Therapist: Jonah (ICD-10-CM I25.729) Treatment codes: ___ 43412 Ther Activity __ 78448 Ther Exercise _2_ 09716 Self Care ___ 79308 Thrptc Intervent Cognitive Function, Initial ___ 63692 Thrptc Intervent Cognitive Function, Ea Addl 15 min -Location of visit: [] room [X]OT gym -Other people involved in treatment [X]None []Included: /es/ STEVEN JEFFERSON Occupational Therapist Signed: 08/17/2024 14:41 STEVEN JEFFERSON [facility]
--- OUTSIDE RECORDS SUMMARY | 2024-11-17 04:15 | XMS_ITS ---
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 Date/Time Primary/Secondary Diagnosis Diagnosis Name Provider Source Aug 17, 2024 11:19 AM PRIMARY Spiritual or episcopal counseling YEMI DAIGLE [facility] Plan of Treatment: Future Appointments (+ 6 months) and Future Tests (+/- 45 days) The Plan of Treatment section includes future care activities for the patient from all [place] [facility]. This section includes future [...] 24, 2024 10:00 AM AMBULATORY - MEDICINE [facility] Aug 24, 2024 10:30 AM AMBULATORY [facility]ICINE [facility] Aug 30, 2024 09:30 AM [facility]ORY [facility]IC[facility] Aug 31, 2024 01:00 PM AMBULATORY - SURGERY [facility] Sep 21, 2024 01:30 PM [facility] Sep 22, 2024 11:00 AM AMBULATORY - MEDICINE [facility] Sep 29, 2024 12:30 PM AMBULATORY - MEDICINE [facility] Oct 02, 2024 09:30 AM AMBULATORY MEDICINE [facility] Nov 20, 2024 10:30 AM AMBULATORY - SURGERY [facility] Nov 21, 2024 10:00 AM AMBULATORY - NONE [facility] Dec 11, 2024 10:30 AM [...] - Chemistry Order CBC BLOOD STAT [facility] Aug 02, 2024 12:00 AM Laboratory - Chemistry Order COMPREHENSIVE METABOLIC PANEL GREEN LI/HEP BLD/PLAS PLASMA [facility] Aug 17, 2024 03:47 PM Consult Order [facility] Cons [...] Aug 22, 2024 11:26 AM Reporting Lab: [facility] [address] Performing Lab: [facility] [address] MAGNESIUM 1.8 mg/dL 1.6-2.6 Aug 23, 2024 08:21 AM [facility] CBC Specimen Type: BLOOD No comment entered. Ordering Provider: SILVIA REDDY Report Released Date/Time: Aug 22, 2024 11:19 AM Reporting Lab: [facility] [address] Performing Lab: [facility] [address] WBC 4.0 10*3/uL 3.6-11.2 RBC 3.65 10*6/uL [...] Specimen Type: BLOOD Comment: Test Performed by: [id number] Meter #: [id number] Ordering Provider: SILVIA REDDY Report Released Date/Time: Aug 23, 2024 05:23 AM Reporting Lab: [facility] [address] Performing Lab: [facility] [address] GLUCOSE,BLOOD- poct (STL) 99 mg/dL 72-99 Aug 23, 2024 02:45 AM [facility] OCCULT BLOOD FIT X1 SCREEN Specimen Type: FECES No comment entered. Ordering Provider: SILVIA REDDY Report Released Date/Time: Aug 22, 2024 11:23 AM Reporting Lab: [address] [address] Performing Lab: [address] [address] OCCULT BLOOD (FIT) #1 OF 1 Negative Negative Aug 22, 2024 07:30 PM [facility] OCCULT BLOOD FIT X1 SCREEN Specimen Type: FECES No comment entered. Ordering Provider: SILVIA REDDY Report Released Date/Time: Aug 22, 2024 11:23 AM Reporting Lab: [address] [address] Performing Lab: [address] [address] OCCULT BLOOD (FIT) #1 OF 1 Negative Negative Aug 22, 2024 06:15 PM [facility] OCCULT BLOOD FIT X1 SCREEN Specimen Type: FECES No comment entered. Ordering Provider: SILVIA REDDY Report Released Date/Time: Aug 22, 2024 11:23 AM Reporting Lab: [facility] [address] [place] [address] Performing Lab: [address] [address] OCCULT BLOOD (FIT) #1 OF 1 Negative Negative Aug 22, 2024 04:24 PM [facility] GLUCOSE,BLOOD-poct (STL) Specimen Type: BLOOD Comment: Test Performed by: [id number] Meter #: [id number] Ordering Provider: SILVIA REDDY Report Released Date/Time: Aug 22, 2024 04:36 PM Reporting Lab: [facility] [address] Performing Lab: [facility] [address] GLUCOSE,BLOOD- poct (STL) 176 mg/dL H 72-99 Aug 22, 2024 04:23 PM [facility] GLUCOSE,BLOOD-poct (STL) Specimen Type: BLOOD Comment: Test Performed by: [id number] Meter #: [id number] Ordering Provider: SILVIA REDDY Report Released Date/Time: Aug 22, 2024 04:36 PM Reporting Lab: [facility] [address] Performing Lab: [facility] [address] GLUCOSE,BLOOD- poct (STL) 221 mg/dL H 72-99 Aug 22, 2024 11:15 AM [facility] GLUCOSE,BLOOD-poct (STL) Specimen Type: BLOOD Comment: Test Performed by: [id number] Meter #: [id number] Ordering Provider: SILVIA REDDY Report Released Date/Time: Aug 22, 2024 11:27 AM Reporting Lab: [facility] [place] [phone] Performing Lab: [facility] [address] GLUCOSE,BLOOD- poct (STL) 140 mg/dL H 72-99 Aug 22, 2024 08:03 AM [facility] FERRITIN Specimen Type: SERUM No comment entered. Ordering Provider: JUDIT PERKINS Report Released Date/Time: Aug 18, 2024 11:01 AM Reporting Lab: [facility] [address] [facility] [address] Performing Lab: [facility] [address] [facility] [address] FERRITIN 79.50 ng/mL 22-275 Aug 22, 2024 08:03 AM [facility] B12 Specimen Type: SERUM No comment entered. Ordering Provider: JUDIT PERKINS Report Released Date/Time: Aug 18, 2024 11:01 AM Reporting Lab: [facility] [address] Performing Lab: [facility] [address] B12 631 pg/mL 213-816 Aug 22, 2024 08:03 AM [facility] IRON/TIBC PROFILE Specimen Type: SERUM No comment entered. Ordering Provider: JUDIT PERKINS Report Released Date/Time: Aug 18, 2024 11:01 AM Reporting Lab: [facility] [address] [facility] [address] Performing Lab: [facility] [address] [facility] [address] TIBC 283 ug/dL 250-450 TRANSFERRIN 226 mg/dL 163-344 IRON SATURATION 7 L 20-50 IRON 19 ug/dL L 65-175 Aug 22, 2024 08:03 AM [facility] COMPREHENSIVE METABOLIC PANEL Specimen Type: PLASMA Comment: No hemolysis noted. Ordering Provider: SILVIA REDDY Report Released Date/Time: Aug 17, 2024 01:18 PM Reporting Lab: [facility] [address] [facility] [address] Performing Lab: [facility] [address] [facility] [address] CREATININE 0.80 mg/dL 0.7-1.3 UREA NITROGEN 9.7 [...] 94.0 >60 Aug 22, 2024 08:03 AM [facility] CBC Specimen Type: BLOOD No comment entered. Ordering Provider: SILVIA REDDY Report Released Date/Time: Aug 17, 2024 01:18 PM Reporting Lab: [facility] [address] Performing Lab: [facility] [address] WBC 3.5 10*3/uL L 3.6-11.2 RBC 3.23 [...] Specimen Type: BLOOD Comment: Test Performed by: [id number] Meter #: [id number] Ordering Provider: SILVIA REDDY Report Released Date/Time: Aug 22, 2024 06:17 AM Reporting Lab: [facility] [place] [address] Performing Lab: [facility] [place] [address] GLUCOSE,BLOOD- poct (STL) 170 mg/dL H 72-Aug 21, 2024 04:32 PM [facility] GLUCOSE,BLOOD-poct (STL) Specimen Type: BLOOD Comment: Test Performed by: [id number] Meter #: [id number] Ordering Provider: SILVIA REDDY Report Released Date/Time: Aug 21, 2024 04:49 PM Reporting Lab: [facility] [place] [address] Performing Lab: [facility] [place] [address] GLUCOSE,BLOOD- poct (STL) 169 mg/dL H 72-Aug 21, 2024 11:53 AM [facility] GLUCOSE,BLOOD-poct (STL) Specimen Type: BLOOD Comment: Test Performed by: [id number] Meter #: [id number] Ordering Provider: SILVIA REDDY Report Released Date/Time: Aug 21, 2024 12:11 PM Reporting Lab: [facility] [place] [address] Performing Lab: [facility] [facility] [address] GLUCOSE,BLOOD- poct (STL) 149 mg/dL H -Aug 21, 2024 05:10 AM [facility] GLUCOSE,BLOOD-poct (STL) Specimen Type: BLOOD Comment: Test Performed by: [id number] Meter #: [id number] Ordering Provider: SILVIA REDDY Report Released Date/Time: Aug 21, 2024 05:27 AM Reporting Lab: [facility] [address] Performing Lab: [facility] [facility] [address] GLUCOSE,BLOOD- poct (STL) 118 mg/dL H -Aug 20, 2024 04:38 PM [facility] GLUCOSE,BLOOD-poct (STL) Specimen Type: BLOOD Comment: Test Performed by: [id number] Meter #: [id number] Ordering Provider: SILVIA REDDY Report Released Date/Time: Aug 21, 2024 01:55 AM Reporting Lab: [facility] [address] Performing Lab: [facility] [facility] [address] GLUCOSE,BLOOD- poct (STL) 169 mg/dL H -Aug 20, 2024 04:36 PM [facility] GLUCOSE,BLOOD-poct (STL) Specimen Type: BLOOD Comment: Test Performed by: [id number] Meter #: [id number] Ordering Provider: SILVIA REDDY Report Released Date/Time: Aug 21, 2024 01:55 AM Reporting Lab: [facility] [address] Performing Lab: [facility] [facility] [address] GLUCOSE,BLOOD- poct (STL) 395 mg/dL H -Aug 20, 2024 11:45 AM [facility] GLUCOSE,BLOOD-poct (STL) Specimen Type: BLOOD Comment: Test Performed by: [id number] Meter #: [id number] Ordering Provider: SILVIA REDDY Report Released Date/Time: Aug 20, 2024 11:56 AM Reporting Lab: [facility] [facility] [address] Performing Lab: [facility] [address] GLUCOSE,BLOOD- poct (STL) 169 mg/dL H 72-Aug 20, 2024 05:06 AM [facility] GLUCOSE,BLOOD-poct (STL) Specimen Type: BLOOD Comment: Test Performed by: [id number] Meter #: [id number] Ordering Provider: SILVIA REDDY Report Released Date/Time: Aug 20, 2024 06:05 AM Reporting Lab: [facility] [address] Performing Lab: [facility] [address] GLUCOSE,BLOOD- poct (STL) 115 mg/dL H -Aug 19, 2024 04:23 PM [facility] GLUCOSE,BLOOD-poct (STL) Specimen Type: BLOOD Comment: Test Performed by: [id number] Meter #: [id number] Ordering Provider: SILVIA REDDY Report Released Date/Time: Aug 19, 2024 05:54 PM Reporting Lab: [facility] [facility] [address] Performing Lab: [facility] [address] GLUCOSE,BLOOD- poct (STL) 137 mg/dL H 72-Aug 19, 2024 11:28 AM [facility] GLUCOSE,BLOOD-poct (STL) Specimen Type: BLOOD Comment: Test Performed by: [id number] Meter #: [id number] Ordering Provider: SILVIA REDDY Report Released Date/Time: Aug 19, 2024 11:51 AM Reporting Lab: [facility] [address] Performing Lab: [facility] [address] GLUCOSE,BLOOD- poct (STL) 190 mg/dL H 72-Aug 19, 2024 05:21 AM [facility] GLUCOSE,BLOOD-poct (STL) Specimen Type: BLOOD Comment: Test Performed by: [id number] Meter #: [id number] Ordering Provider: SILVIA REDDY Report Released Date/Time: Aug 19, 2024 05:56 AM Reporting Lab: [facility] [address] Performing Lab: [facility] [address] GLUCOSE,BLOOD- poct (STL) 130 mg/dL H 72-Aug 18, 2024 04:49 PM [facility] GLUCOSE,BLOOD-poct (STL) Specimen Type: BLOOD Comment: Test Performed by: [id number] Meter #: [id number] Ordering Provider: SILVIA REDDY Report Released Date/Time: Aug 18, 2024 05:01 PM Reporting Lab: [facility] [address] Performing Lab: [facility] [address] GLUCOSE,BLOOD- poct (STL) 129 mg/dL H 72-99 Aug 18, 2024 11:23 AM [facility] GLUCOSE,BLOOD-poct (STL) Specimen Type: BLOOD Comment: Test Performed by: [id number] Meter #: [id number] Ordering Provider: SILVIA REDDY Report Released Date/Time: Aug 18, 2024 11:41 AM Reporting Lab: [facility] [address] Performing Lab: [facility] [address] GLUCOSE,BLOOD- poct (STL) 180 mg/dL H Aug 18, 2024 05:08 AM [facility] GLUCOSE,BLOOD-poct (STL) Specimen Type: BLOOD Comment: Test Performed by: [id number] Meter #: [id number] Ordering Provider: SILVIA REDDY Report Released Date/Time: Aug 18, 2024 05:31 AM Reporting Lab: [facility] [address] Performing Lab: [facility] [address] GLUCOSE,BLOOD- poct (STL) 127 mg/dL H Aug 17, 2024 07:32 PM [facility] GLUCOSE,BLOOD-poct (STL) Specimen Type: BLOOD Comment: Test Performed by: [id number] Meter #: [id number] Ordering Provider: SILVIA REDDY Report Released Date/Time: Aug 17, 2024 07:59 PM Reporting Lab: [facility] [address] Performing Lab: [facility] [address] GLUCOSE,BLOOD- poct (STL) 154 mg/dL H Aug 17, 2024 04:24 PM [facility] GLUCOSE,BLOOD-poct (STL) Specimen Type: BLOOD Comment: Test Performed by: [id number] Meter #: [id number] Ordering Provider: SILVIA REDDY Report Released Date/Time: Aug 17, 2024 04:35 PM Reporting Lab: [facility] [address] Performing Lab: [facility] [address] GLUCOSE,BLOOD- poct (STL) 178 mg/dL H Aug 17, 2024 05:09 AM [facility] GLUCOSE,BLOOD-poct (STL) Specimen Type: BLOOD Comment: Test Performed by: [id number] Meter #: [id number] Ordering Provider: SILVIA REDDY Report Released Date/Time: Aug 17, 2024 05:54 AM Reporting Lab: [facility] [address] Performing Lab: [facility] [address] GLUCOSE,BLOOD- poct (STL) 124 mg/dL H -Aug 16, 2024 07:40 PM [facility] GLUCOSE,BLOOD-poct (STL) Specimen Type: BLOOD Comment: Test Performed by: [id number] Meter #: [id number] Ordering Provider: SILVIA REDDY Report Released Date/Time: Aug 16, 2024 08:28 PM Reporting Lab: [facility] [address] Performing Lab: [facility] [address] GLUCOSE,BLOOD- poct (STL) 144 mg/dL H Aug 16, 2024 04:19 PM [facility] GLUCOSE,BLOOD-poct (STL) Specimen Type: BLOOD Comment: Test Performed by: [id number] Meter #: [id number] Ordering Provider: SILVIA REDDY Report Released Date/Time: Aug 16, 2024 04:45 PM Reporting Lab: [facility] [address] Performing Lab: [facility] [address] GLUCOSE,BLOOD- poct (STL) 138 mg/dL H Aug 16, 2024 11:52 AM [facility] GLUCOSE,BLOOD-poct (STL) Specimen Type: BLOOD Comment: Test Performed by: [id number] Meter #: [id number] Ordering Provider: SILVIA REDDY Report Released Date/Time: Aug 16, 2024 12:04 PM Reporting Lab: [facility] [address] Performing Lab: [facility] [address] GLUCOSE,BLOOD- poct (STL) 135 mg/dL H 72-Aug 16, 2024 05:24 AM [facility] GLUCOSE,BLOOD-poct (STL) Specimen Type: BLOOD Comment: Test Performed by: [id number] Meter #: [id number] Ordering Provider: SILVIA REDDY Report Released Date/Time: Aug 16, 2024 05:38 AM Reporting Lab: [facility] [address] Performing Lab: [facility] [address] GLUCOSE,BLOOD- poct (STL) 151 mg/dL H -Aug 15, 2024 07:31 PM [facility] GLUCOSE,BLOOD-poct (STL) Specimen Type: BLOOD Comment: Test Performed by: [id number] Meter #: [id number] Ordering Provider: SILVIA REDDY Report Released Date/Time: Aug 15, 2024 08:07 PM Reporting Lab: [facility] [address] Performing Lab: [facility] [address] GLUCOSE,BLOOD- poct (STL) 173 mg/dL H -Aug 15, 2024 04:18 PM [facility] GLUCOSE,BLOOD-poct (STL) Specimen Type: BLOOD Comment: Test Performed by: [id number] Meter #: [id number] Ordering Provider: SILVIA REDDY Report Released Date/Time: Aug 15, 2024 04:59 PM Reporting Lab: [facility] [address] Performing Lab: [facility] [address] GLUCOSE,BLOOD- poct (STL) 136 mg/dL H -Aug 15, 2024 04:16 PM [facility] GLUCOSE,BLOOD-poct (STL) Specimen Type: BLOOD Comment: Test Performed by: [id number] Meter #: [id number] Ordering Provider: SILVIA REDDY Report Released Date/Time: Aug 15, 2024 04:59 PM Reporting Lab: [facility] [address] Performing Lab: [facility] [address] GLUCOSE,BLOOD- poct (STL) 194 mg/dL H Aug 15, 2024 11:39 AM [facility] GLUCOSE,BLOOD-poct (STL) Specimen Type: BLOOD Comment: Test Performed by: [id number] Meter #: [id number] Ordering Provider: SILVIA REDDY Report Released Date/Time: Aug 15, 2024 12:00 PM Reporting Lab: [facility] [address] Performing Lab: [facility] [address] GLUCOSE,BLOOD- poct (STL) 127 mg/dL H Aug 15, 2024 05:07 AM [facility] GLUCOSE,BLOOD-poct (STL) Specimen Type: BLOOD Comment: Test Performed by: [id number] Meter #: [id number] Ordering Provider: SILVIA REDDY Report Released Date/Time: Aug 15, 2024 06:14 AM Reporting Lab: [facility] [address] Performing Lab: [facility] [address] GLUCOSE,BLOOD- poct (STL) 151 mg/dL H Aug 14, 2024 04:22 PM [facility] GLUCOSE,BLOOD-poct (STL) Specimen Type: BLOOD Comment: Test Performed by: [id number] Meter #: [id number] Ordering Provider: SILVIA REDDY Report Released Date/Time: Aug 14, 2024 04:52 PM Reporting Lab: [facility] [address] Performing Lab: [facility] [address] GLUCOSE,BLOOD- poct (STL) 129 mg/dL H 72-Aug 14, 2024 11:21 AM [facility] GLUCOSE,BLOOD-poct (STL) Specimen Type: BLOOD Comment: Test Performed by: [id number] Meter #: [id number] Ordering Provider: SILVIA REDDY Report Released Date/Time: Aug 14, 2024 11:37 AM Reporting Lab: [facility] [address] Performing Lab: [facility] [address] GLUCOSE,BLOOD- poct (STL) 135 mg/dL H -Aug 14, 2024 06:59 AM [facility] [...] For additional information, please refer to http://education. [employer]. [employer]/faq/QRW618 (This link is being provided for information/ educational purposes only.) Test Performed by [employer], [facility], [address] [place], [place] Tommie Garcia M.D., Ph.D., Director of Laboratories , [facility] [id number] Ordering Provider: SILVIA REDDY Report Released Date/Time: Aug 11, 2024 03:58 PM Reporting Lab: [facility] [address] [facility] [address] Performing Lab: [facility] [address] [facility] .NIL - QUANTIFERON 0.04 [IU]/mL .MITOGEN-NIL 0.39 [IU]/mL .QUANTIFERON INDETERMINATE NEGATIVE .TB1-NIL <0.00 [IU]/mL .TB2-NIL <0.00 [IU]/mL Aug 14, 2024 06:59 AM [facility] MAGNESIUM Specimen Type: PLASMA Comment: No hemolysis noted. Ordering Provider: SILVIA REDDY Report Released Date/Time: Aug 11, 2024 03:58 PM Reporting Lab: [facility] [place] [phone] Performing Lab: [facility] [place] [phone] MAGNESIUM 1.9 mg/dL 1.6-2.6 Aug 14, 2024 06:59 AM [facility] B12 Specimen Type: SERUM No comment entered. Ordering Provider: SILVIA REDDY Report Released Date/Time: Aug 11, 2024 03:58 PM Reporting Lab: [facility] [place] [phone] Performing Lab: [facility] [place] [address] B12 757 pg/mL 213-816 Aug 14, 2024 06:59 AM [facility] FOLATE ([facility]) Specimen Type: SERUM No comment entered. Ordering Provider: SILVIA REDDY Report Released Date/Time: Aug 11, 2024 03:58 PM Reporting Lab: [facility] [place] [address] Performing Lab: [facility] [place] [address] FOLATE (L-MO) 6.8 ng/mL L 7-20 Aug 14, 2024 06:59 AM [facility] VITAMIN D, 25-HYDROXY Specimen Type: SERUM No comment entered. Ordering Provider: SILVIA REDDY Report Released Date/Time: Aug 11, 2024 03:58 PM Reporting Lab: [facility] [place] [address] Performing Lab: [facility] [place] [address] VITAMIN D, 25-HYDROXY 8.9 ng/mL L 30-96 Aug 14, 2024 06:59 AM [facility] COMPREHENSIVE METABOLIC PANEL Specimen Type: PLASMA Comment: No hemolysis noted. Ordering Provider: SILVIA REDDY Report Released Date/Time: Aug 11, 2024 03:58 PM Reporting Lab: [facility] [place] [address] Performing Lab: [facility] [place] [address] CREATININE 0.75 mg/dL 0.70-1.30 UREA NITROGEN 13.6 [...] 95.88 >60 Aug 14, 2024 06:59 AM [facility] CBC Specimen Type: BLOOD No comment entered. Ordering Provider: SILVIA REDDY Report Released Date/Time: Aug 11, 2024 03:58 PM Reporting Lab: [facility] [id number] Performing Lab: [facility] [id number] WBC 4.1 10*3/uL 3.6-11.2 RBC 3.20 10*6/uL [...] 10*3/uL 0.00-0.20 Aug 14, 2024 05:08 AM [facility] GLUCOSE,BLOOD-poct (STL) Specimen Type: BLOOD Comment: Test Performed by: [id number] Meter #: [id number] Ordering Provider: SILVIA REDDY Report Released Date/Time: Aug 14, 2024 05:52 AM Reporting Lab: [facility] [id number] Performing Lab: [facility] [id number] GLUCOSE,BLOOD- poct (STL) 135 mg/dL H -Aug 13, 2024 04:27 PM [facility] GLUCOSE,BLOOD-poct (STL) Specimen Type: BLOOD Comment: Test Performed by: [id number] Meter #: [id number] Ordering Provider: SILVIA REDDY Report Released Date/Time: Aug 13, 2024 04:41 PM Reporting Lab: [facility] [facility] [address] Performing Lab: [facility] [address] GLUCOSE,BLOOD- poct (STL) 181 mg/dL H Aug 13, 2024 11:33 AM [facility] GLUCOSE,BLOOD-poct (STL) Specimen Type: BLOOD Comment: Test Performed by: [id number] Meter #: [id number] Ordering Provider: SILVIA REDDY Report Released Date/Time: Aug 13, 2024 03:55 PM Reporting Lab: [facility] [address] Performing Lab: [facility] [address] GLUCOSE,BLOOD- poct (STL) 140 mg/dL H Aug 13, 2024 05:54 AM [facility] GLUCOSE,BLOOD-poct (STL) Specimen Type: BLOOD Comment: Test Performed by: [id number] Meter #: [id number] Ordering Provider: SILVIA REDDY Report Released Date/Time: Aug 13, 2024 06:20 AM Reporting Lab: [facility] [address] Performing Lab: [facility] [address] GLUCOSE,BLOOD- poct (STL) 112 mg/dL H 72-Aug 12, 2024 04:35 PM [facility] GLUCOSE,BLOOD-poct (STL) Specimen Type: BLOOD Comment: Test Performed by: [id number] Meter #: [id number] Ordering Provider: SILVIA REDDY Report Released Date/Time: Aug 12, 2024 04:47 PM Reporting Lab: [facility] [address] Performing Lab: [facility] [address] GLUCOSE,BLOOD- poct (STL) 128 mg/dL H Aug 12, 2024 11:26 AM [facility] GLUCOSE,BLOOD-poct (STL) Specimen Type: BLOOD Comment: Test Performed by: [id number] Meter #: [id number] Ordering Provider: SILVIA REDDY Report Released Date/Time: Aug 12, 2024 11:45 AM Reporting Lab: [facility] [address] Performing Lab: [facility] [address] GLUCOSE,BLOOD- poct (STL) 188 mg/dL H Aug 12, 2024 06:13 AM [facility] GLUCOSE,BLOOD-poct (STL) Specimen Type: BLOOD Comment: Test Performed by: [id number] Meter #: [id number] Ordering Provider: SILVIA REDDY Report Released Date/Time: Aug 12, 2024 06:25 AM Reporting Lab: [facility] [address] Performing Lab: [facility] [address] GLUCOSE,BLOOD- poct (STL) 116 mg/dL H Aug 11, 2024 04:10 PM [facility] GLUCOSE,BLOOD-poct (STL) Specimen Type: BLOOD Comment: Test Performed by: [id number] Meter #: [id number] Ordering Provider: SILVIA REDDY Report Released Date/Time: Aug 11, 2024 04:27 PM Reporting Lab: [facility] [address] Performing Lab: [facility] [address] GLUCOSE,BLOOD- poct (STL) 184 mg/dL H 72-99 Aug 11, 2024 01:44 PM [facility] MRSA SURVL NARES DNA Specimen Type: [...] Aug 11, 2024 02:03 PM Reporting Lab: [facility] [address] [place] [address] Performing Lab: [facility] [address] [place] [address] MRSA SURVL NARES DNA Negative Negative Jul 20, 2024 11:[address] [facility] APTT Specimen Type: PLASMA No comment entered. Ordering Provider: MANUEL BAIRD Report Released Date/Time: Jul 19, 2024 04:00 PM Reporting Lab: [facility] [address] [facility] [address] Performing Lab: [facility] [address] [facility] [address] APTT 32.1 s 26.7-39.9 Jul 20, 2024 11:[address] [facility] PT/INR NEW (STL-MA) Specimen Type: PLASMA No comment entered. Ordering Provider: MANUEL BAIRD Report Released Date/Time: Jul 19, 2024 04:00 PM Reporting Lab: [facility] [address] [facility] [address] Performing Lab: [facility] [address] [address] PROTIME 14.4 s H 9.4-12.5 INR VALUE 1.3 {INR} Jul 20, 2024 11:[address] [facility] CBC Specimen Type: BLOOD No comment entered. Ordering Provider: MANUEL BAIRD Report Released Date/Time: Jul 19, 2024 04:00 PM Reporting Lab: [facility] [address] [address] Performing Lab: [facility] [address] [address] WBC 4.7 10*3/uL 3.6-11.2 RBC 4.86 10*6/uL [...] Source Aug 17, 2024 11:06 PM 4 [facility] Aug 17, 2024 10:01 PM 7 [facility] Aug 17, 2024 09:56 PM 0 [facility] Aug 17, 2024 08:06 PM 97.1 78 110/67 18 95 0 [facility] Aug 17, 2024 11:29 AM 126/80 [facility] Advance Directives: All historical and [...] 19, 2017 ADVANCE DIRECTIVE DISCUSSION ERICK BARDALES [facility] Encounter Notes: All associated encounter notes This section contains the clinical notes associated to the Encounter. Date/Time Encounter Note(s) Provider Source Aug 17, 2024 09:25 AM PASTORAL CARE NOTE : LOCAL TITLE: PASTORAL CARE NOTE STANDARD TITLE: PASTORAL CARE NOTE DATE OF NOTE: AUG 17, 2024@09:25 ENTRY DATE: AUG 17, 2024@11:15:17 AUTHOR: YEMI DAIGLE COSIGNER: URGENCY: STATUS: COMPLETED Pastoral Visit: Initial Phone Representative met with: Location: Patient Room Restorationist Preference: Amish: Judaism Assessment - [place] welcomed Phone Representative, but he did not wish to engage in conversation for a long time. He did speak of his home in [place], a place he has lived his entire life. There is no family in the community; they all live in [place]. [place] has been very happy with the medical care at the [place], helping to set his physical goals so that he can work toward discharge. He confirmed his episcopal preference, but the [place] has no spiritual needs at this time. Intervention - Phone Representative explained his role; asked guided questions; discussed [place]'s plan of care; offered support; performed a blessing. Outcome - As a result, the [place] thanked the Phone Representative for his visit. Plan - The Phone Representative will be available for pastoral care and support to the [place] during his admission. /shen/ YEMI Chappell Signed: 08/17/2024 11:20 YEMI DAIGLE [facility]
--- OUTSIDE RECORDS SUMMARY | 2024-11-17 04:16 | XMS_ITS ---
[place] DAILY HOSPITALIZATION DATA [facility] Encounter Summary Created on: November 16, 2024 CHET WALKER : 1950 Sex: Male Author Name [facility] Organization [facility] Address [address] [place] [address] Care Team Providers Care Area Sales Manager Name Role Phone MANUEL BAIRD Primary [...] PART A Apr 08, 2017 PART A [id number] [phone] ASHLEY WALKER PATIENT Selected Encounter This section includes the information on record at ID for the Encounter. Date/Time Encounter Type Encounter Description Reason Pro vider Source Aug 18, 2024 03:02 AM Inpatient Visit DAILY HOSPITALIZATION DATA MARY JONES Encounter Template Text not used by VA [...] of theEncounter. The data comes from all [facility]. Test Date/Time Test Type Test Details Facility Name Aug 02, 2024 12:00 AM Laboratory - Chemistry Order CBC BLOOD STAT SP [facility] Aug 02, 2024 12:00 AM Laboratory - Chemistry Order COMPREHENSIVE METABOLIC PANEL GREEN LI/HEP BLD/PLAS PLASMA SP [facility] Aug 17, 2024 03:47 PM Consult Order [facility] Cons Bedside [facility] [...] [facility] [address] Performing Lab: [facility] [address] MAGNESIUM 1.8 mg/dL 1.6-2.6 Aug 23, 2024 08:[address] [facility] CBC Specimen Type: BLOOD No comment entered. Ordering Provider: SILVIA REDDY Report Released Date/Time: Aug 22, 2024 11:19 AM Reporting Lab: [facility] [address] Performing Lab: [facility] [address] WBC 4.0 10*3/uL 3.6-11.2 RBC 3.65 10*6/uL [...] Specimen Type: BLOOD Comment: Test Performed by: [id number] Meter #: [id number] Ordering Provider: SILVIA REDDY Report Released Date/Time: Aug 23, 2024 05:23 AM Reporting Lab: [facility] [address] Performing Lab: [facility] [address] GLUCOSE,BLOOD- poct (STL) 99 mg/dL 72-99 Aug 23, 2024 02:45 AM [facility] OCCULT BLOOD FIT X1 SCREEN Specimen Type: FECES No comment entered. Ordering Provider: SILVIA REDDY Report Released Date/Time: Aug 22, 2024 11:23 AM Reporting Lab: [address] [address] Performing Lab: [address] [address] OCCULT BLOOD (FIT) #1 OF 1 Negative Negative Aug 22, 2024 07:30 PM [facility] OCCULT BLOOD FIT X1 SCREEN Specimen Type: FECES No comment entered. Ordering Provider: SILVIA REDDY Report Released Date/Time: Aug 22, 2024 11:23 AM Reporting Lab: [address] [address] Performing Lab: [address] [address] OCCULT BLOOD (FIT) #1 OF 1 Negative Negative Aug 22, 2024 06:15 PM [facility] OCCULT BLOOD FIT X1 SCREEN Specimen Type: FECES No comment entered. Ordering Provider: SILVIA REDDY Report Released Date/Time: Aug 22, 2024 11:23 AM Reporting Lab: [address] [address] Performing Lab: [place] [id number] [facility] [address] OCCULT BLOOD (FIT) #1 OF 1 Negative Negative Aug 22, 2024 04:24 PM [facility] GLUCOSE,BLOOD-poct (STL) Specimen Type: BLOOD Comment: Test Performed by: [id number] Meter #: [id number] Ordering Provider: SILVIA REDDY Report Released Date/Time: Aug 22, 2024 04:36 PM Reporting Lab: [facility] [address] Performing Lab: [facility] [address] GLUCOSE,BLOOD- poct (STL) 176 mg/dL H -Aug 22, 2024 04:23 PM [facility] GLUCOSE,BLOOD-poct (STL) Specimen Type: BLOOD Comment: Test Performed by: [id number] Meter #: [id number] Ordering Provider: SILVIA REDDY Report Released Date/Time: Aug 22, 2024 04:36 PM Reporting Lab: [facility] [address] Performing Lab: [facility] [address] GLUCOSE,BLOOD- poct (STL) 221 mg/dL H 72-Aug 22, 2024 11:15 AM [facility] GLUCOSE,BLOOD-poct (STL) Specimen Type: BLOOD Comment: Test Performed by: [id number] Meter #: [id number] Ordering Provider: SILVIA REDDY Report Released Date/Time: Aug 22, 2024 11:27 AM Reporting Lab: [facility] [address] Performing Lab: [facility] [address] GLUCOSE,BLOOD- poct (STL) 140 mg/dL H 72-Aug 22, 2024 08:[address] [facility] FERRITIN Specimen Type: SERUM No comment entered. Ordering Provider: JUDIT PERKINS Report Released Date/Time: Aug 18, 2024 11:01 AM Reporting Lab: [facility] [address] [facility] [address] Performing Lab: [facility] [address] [place] [address] FERRITIN 79.50 ng/mL 22-275 Aug 22, 2024 08:03 AM [facility] IRON/TIBC PROFILE Specimen Type: SERUM No comment entered. Ordering Provider: JUDIT PERKINS Report Released Date/Time: Aug 18, 2024 11:01 AM Reporting Lab: [address] [address] Performing Lab: [address] [address] TIBC 283 ug/dL 250-450 TRANSFERRIN 226 mg/dL 163-344 IRON SATURATION 7 L 20-50 IRON 19 ug/dL L 65-175 Aug 22, 2024 08:[address] [facility] B12 Specimen Type: SERUM No comment entered. Ordering Provider: JUDIT PERKINS Report Released Date/Time: Aug 18, 2024 11:01 AM Reporting Lab: [facility] [address] Performing Lab: [facility] [address] B12 631 pg/mL 213-816 Aug 22, 2024 08:03 AM [facility] COMPREHENSIVE METABOLIC PANEL Specimen Type: PLASMA Comment: No hemolysis noted. Ordering Provider: SILVIA REDDY Report Released Date/Time: Aug 17, 2024 01:18 PM Reporting Lab: [facility] [address] [facility] [address] Performing Lab: [address] [address] CREATININE 0.80 mg/dL 0.7-1.3 UREA NITROGEN 9.7 [...] [facility] [address] Performing Lab: [facility] [address] WBC 3.5 10*3/uL L 3.6-11.2 RBC 3.23 [...] Specimen Type: BLOOD Comment: Test Performed by: [id number] Meter #: [id number] Ordering Provider: SILVIA REDDY Report Released Date/Time: Aug 22, 2024 06:17 AM Reporting Lab: [facility] [address] Performing Lab: [facility] [address] GLUCOSE,BLOOD- poct (STL) 170 mg/dL H 72-Aug 21, 2024 04:32 PM [facility] GLUCOSE,BLOOD-poct (STL) Specimen Type: BLOOD Comment: Test Performed by: [id number] Meter #: [id number] Ordering Provider: SILVIA REDDY Report Released Date/Time: Aug 21, 2024 04:49 PM Reporting Lab: [facility] [address] Performing Lab: [facility] [address] GLUCOSE,BLOOD- poct (STL) 169 mg/dL H -Aug 21, 2024 11:53 AM [facility] GLUCOSE,BLOOD-poct (STL) Specimen Type: BLOOD Comment: Test Performed by: [id number] Meter #: [id number] Ordering Provider: SILVIA REDDY Report Released Date/Time: Aug 21, 2024 12:11 PM Reporting Lab: [facility] [address] Performing Lab: [facility] [address] GLUCOSE,BLOOD- poct (STL) 149 mg/dL H 72-Aug 21, 2024 05:10 AM [facility] GLUCOSE,BLOOD-poct (STL) Specimen Type: BLOOD Comment: Test Performed by: [id number] Meter #: [id number] Ordering Provider: SILVIA REDDY Report Released Date/Time: Aug 21, 2024 05:27 AM Reporting Lab: [facility] [address] Performing Lab: [facility] [address] GLUCOSE,BLOOD- poct (STL) 118 mg/dL H 72-Aug 20, 2024 04:38 PM [facility] GLUCOSE,BLOOD-poct (STL) Specimen Type: BLOOD Comment: Test Performed by: [id number] Meter #: [id number] Ordering Provider: SILVIA REDDY Report Released Date/Time: Aug 21, 2024 01:55 AM Reporting Lab: [facility] [address] Performing Lab: [facility] [address] [place] [address] GLUCOSE,BLOOD- poct (STL) 169 mg/dL H -Aug 20, 2024 04:36 PM [facility] GLUCOSE,BLOOD-poct (STL) Specimen Type: BLOOD Comment: Test Performed by: [id number] Meter #: [id number] Ordering Provider: SILVIA REDDY Report Released Date/Time: Aug 21, 2024 01:55 AM Reporting Lab: [facility] [address] Performing Lab: [facility] [address] GLUCOSE,BLOOD- poct (STL) 395 mg/dL H 72-Aug 20, 2024 11:45 AM [facility] GLUCOSE,BLOOD-poct (STL) Specimen Type: BLOOD Comment: Test Performed by: [id number] Meter #: [id number] Ordering Provider: SILVIA REDDY Report Released Date/Time: Aug 20, 2024 11:56 AM Reporting Lab: [facility] [address] [place] [address] Performing Lab: [facility] [address] GLUCOSE,BLOOD- poct (STL) 169 mg/dL H -Aug 20, 2024 05:06 AM [facility] GLUCOSE,BLOOD-poct (STL) Specimen Type: BLOOD Comment: Test Performed by: [id number] Meter #: [id number] Ordering Provider: SILVIA REDDY Report Released Date/Time: Aug 20, 2024 06:05 AM Reporting Lab: [facility] [address] Performing Lab: [facility] [address] GLUCOSE,BLOOD- poct (STL) 115 mg/dL H -Aug 19, 2024 04:23 PM [facility] GLUCOSE,BLOOD-poct (STL) Specimen Type: BLOOD Comment: Test Performed by: [id number] Meter #: [id number] Ordering Provider: SILVIA REDDY Report Released Date/Time: Aug 19, 2024 05:54 PM Reporting Lab: [facility] [address] Performing Lab: [facility] [address] GLUCOSE,BLOOD- poct (STL) 137 mg/dL H -Aug 19, 2024 11:28 AM [facility] GLUCOSE,BLOOD-poct (STL) Specimen Type: BLOOD Comment: Test Performed by: [id number] Meter #: [id number] Ordering Provider: SILVIA REDDY Report Released Date/Time: Aug 19, 2024 11:51 AM Reporting Lab: [facility] [address] Performing Lab: [facility] [address] GLUCOSE,BLOOD- poct (STL) 190 mg/dL H Aug 19, 2024 05:21 AM [facility] GLUCOSE,BLOOD-poct (STL) Specimen Type: BLOOD Comment: Test Performed by: [id number] Meter #: [id number] Ordering Provider: SILVIA REDDY Report Released Date/Time: Aug 19, 2024 05:56 AM Reporting Lab: [facility] [address] Performing Lab: [facility] [address] GLUCOSE,BLOOD- poct (STL) 130 mg/dL H Aug 18, 2024 04:49 PM [facility] GLUCOSE,BLOOD-poct (STL) Specimen Type: BLOOD Comment: Test Performed by: [id number] Meter #: [id number] Ordering Provider: SILVIA REDDY Report Released Date/Time: Aug 18, 2024 05:01 PM Reporting Lab: [facility] [address] Performing Lab: [facility] [address] GLUCOSE,BLOOD- poct (STL) 129 mg/dL H Aug 18, 2024 11:23 AM [facility] GLUCOSE,BLOOD-poct (STL) Specimen Type: BLOOD Comment: Test Performed by: [id number] Meter #: [id number] Ordering Provider: SILVIA REDDY Report Released Date/Time: Aug 18, 2024 11:41 AM Reporting Lab: [facility] [address] Performing Lab: [facility] [address] GLUCOSE,BLOOD- poct (STL) 180 mg/dL H Aug 18, 2024 05:08 AM [facility] GLUCOSE,BLOOD-poct (STL) Specimen Type: BLOOD Comment: Test Performed by: [id number] Meter #: [id number] Ordering Provider: SILVIA REDDY Report Released Date/Time: Aug 18, 2024 05:31 AM Reporting Lab: [facility] [address] Performing Lab: [facility] [address] GLUCOSE,BLOOD- poct (STL) 127 mg/dL H -Aug 17, 2024 07:32 PM [facility] GLUCOSE,BLOOD-poct (STL) Specimen Type: BLOOD Comment: Test Performed by: [id number] Meter #: [id number] Ordering Provider: SILVIA REDDY Report Released Date/Time: Aug 17, 2024 07:59 PM Reporting Lab: [facility] [address] Performing Lab: [facility] [address] GLUCOSE,BLOOD- poct (STL) 154 mg/dL H -Aug 17, 2024 04:24 PM [facility] GLUCOSE,BLOOD-poct (STL) Specimen Type: BLOOD Comment: Test Performed by: [id number] Meter #: [id number] Ordering Provider: SILVIA REDDY Report Released Date/Time: Aug 17, 2024 04:35 PM Reporting Lab: [facility] [address] Performing Lab: [facility] [address] GLUCOSE,BLOOD- poct (STL) 178 mg/dL H -Aug 17, 2024 05:09 AM [facility] GLUCOSE,BLOOD-poct (STL) Specimen Type: BLOOD Comment: Test Performed by: [id number] Meter #: [id number] Ordering Provider: SILVIA REDDY Report Released Date/Time: Aug 17, 2024 05:54 AM Reporting Lab: [facility] [place] [address] Performing Lab: [facility] [address] GLUCOSE,BLOOD- poct (STL) 124 mg/dL H -Aug 16, 2024 07:40 PM [facility] GLUCOSE,BLOOD-poct (STL) Specimen Type: BLOOD Comment: Test Performed by: [id number] Meter #: [id number] Ordering Provider: SILVIA REDDY Report Released Date/Time: Aug 16, 2024 08:28 PM Reporting Lab: [facility] [address] Performing Lab: [facility] [address] GLUCOSE,BLOOD- poct (STL) 144 mg/dL H Aug 16, 2024 04:19 PM [facility] GLUCOSE,BLOOD-poct (STL) Specimen Type: BLOOD Comment: Test Performed by: [id number] Meter #: [id number] Ordering Provider: SILVIA REDDY Report Released Date/Time: Aug 16, 2024 04:45 PM Reporting Lab: [facility] [address] Performing Lab: [facility] [address] GLUCOSE,BLOOD- poct (STL) 138 mg/dL H Aug 16, 2024 11:52 AM [facility] GLUCOSE,BLOOD-poct (STL) Specimen Type: BLOOD Comment: Test Performed by: [id number] Meter #: [id number] Ordering Provider: SILVIA REDDY Report Released Date/Time: Aug 16, 2024 12:04 PM Reporting Lab: [facility] [address] Performing Lab: [facility] [address] GLUCOSE,BLOOD- poct (STL) 135 mg/dL H Aug 16, 2024 05:24 AM [facility] GLUCOSE,BLOOD-poct (STL) Specimen Type: BLOOD Comment: Test Performed by: [id number] Meter #: [id number] Ordering Provider: SILVIA REDDY Report Released Date/Time: Aug 16, 2024 05:38 AM Reporting Lab: [facility] [address] Performing Lab: [facility] [address] GLUCOSE,BLOOD- poct (STL) 151 mg/dL H Aug 15, 2024 07:31 PM [facility] GLUCOSE,BLOOD-poct (STL) Specimen Type: BLOOD Comment: Test Performed by: [id number] Meter #: [id number] Ordering Provider: SILVIA REDDY Report Released Date/Time: Aug 15, 2024 08:07 PM Reporting Lab: [facility] [address] Performing Lab: [facility] [address] GLUCOSE,BLOOD- poct (STL) 173 mg/dL H Aug 15, 2024 04:18 PM [facility] GLUCOSE,BLOOD-poct (STL) Specimen Type: BLOOD Comment: Test Performed by: [id number] Meter #: [id number] Ordering Provider: SILVIA REDDY Report Released Date/Time: Aug 15, 2024 04:59 PM Reporting Lab: [facility] [address] Performing Lab: [facility] [address] GLUCOSE,BLOOD- poct (STL) 136 mg/dL H Aug 15, 2024 04:16 PM [facility] GLUCOSE,BLOOD-poct (STL) Specimen Type: BLOOD Comment: Test Performed by: [id number] Meter #: [id number] Ordering Provider: SILVIA REDDY Report Released Date/Time: Aug 15, 2024 04:59 PM Reporting Lab: [facility] [address] Performing Lab: [facility] [address] GLUCOSE,BLOOD- poct (STL) 194 mg/dL H -Aug 15, 2024 11:39 AM [facility] GLUCOSE,BLOOD-poct (STL) Specimen Type: BLOOD Comment: Test Performed by: [id number] Meter #: [id number] Ordering Provider: SILVIA REDDY Report Released Date/Time: Aug 15, 2024 12:00 PM Reporting Lab: [facility] [address] Performing Lab: [facility] [address] GLUCOSE,BLOOD- poct (STL) 127 mg/dL H -Aug 15, 2024 05:07 AM [facility] GLUCOSE,BLOOD-poct (STL) Specimen Type: BLOOD Comment: Test Performed by: [id number] Meter #: [id number] Ordering Provider: SILVIA REDDY Report Released Date/Time: Aug 15, 2024 06:14 AM Reporting Lab: [facility] [address] Performing Lab: [facility] [address] GLUCOSE,BLOOD- poct (STL) 151 mg/dL H -Aug 14, 2024 04:22 PM [facility] GLUCOSE,BLOOD-poct (STL) Specimen Type: BLOOD Comment: Test Performed by: [id number] Meter #: [id number] Ordering Provider: SILVIA REDDY Report Released Date/Time: Aug 14, 2024 04:52 PM Reporting Lab: [facility] [place] [address] Performing Lab: [facility] [address] GLUCOSE,BLOOD- poct (STL) 129 mg/dL H 72-99 Aug 14, 2024 11:21 AM [facility] GLUCOSE,BLOOD-poct (STL) Specimen Type: BLOOD Comment: Test Performed by: [id number] Meter #: [id number] Ordering Provider: SILVIA REDDY Report Released Date/Time: Aug 14, 2024 11:37 AM Reporting Lab: [facility] [address] Performing Lab: [facility] [address] GLUCOSE,BLOOD- poct (STL) 135 mg/dL H 72-99 Aug 14, 2024 06:59 AM [facility] [...] For additional information, please refer to http://education. [employer]/faq/SBF207 (This link is being provided for information/ educational purposes only.) Test Performed by [email or web address], [employer] [facility][1], [address] [place] [address] Tommie Garcia M.D., Ph.D., Director of Laboratories , [facility] [id number] Ordering Provider: SILVIA REDDY Report Released Date/Time: Aug 11, 2024 03:58 PM Reporting Lab: [facility] [address] [facility] [address] Performing Lab: [facility] [id number] [place] [address] .NIL - QUANTIFERON 0.04 [IU]/mL .MITOGEN-NIL 0.39 [IU]/mL .QUANTIFERON INDETERMINATE NEGATIVE .TB1-NIL <0.00 [IU]/mL .TB2-NIL <0.00 [IU]/mL Aug 14, 2024 06:[address] [facility] MAGNESIUM Specimen Type: PLASMA Comment: No hemolysis noted. Ordering Provider: SILVIA REDDY Report Released Date/Time: Aug 11, 2024 03:58 PM Reporting Lab: [facility] [address] Performing Lab: [facility] [address] MAGNESIUM 1.9 mg/dL 1.6-2.6 Aug 14, 2024 06:[address] [facility] FOLATE (STL-MA) Specimen Type: SERUM No comment entered. Ordering Provider: SILVIA REDDY Report Released Date/Time: Aug 11, 2024 03:58 PM Reporting Lab: [facility] [address] Performing Lab: [facility] [address] FOLATE (STL-MA) 6.8 ng/mL L 7-20 Aug 14, 2024 06:[address] [facility] VITAMIN D, 25-HYDROXY Specimen Type: SERUM No comment entered. Ordering Provider: SILVIA REDDY Report Released Date/Time: Aug 11, 2024 03:58 PM Reporting Lab: [facility] [address] Performing Lab: [facility] [address] VITAMIN D, 25-HYDROXY 8.9 ng/mL L 30-96 Aug 14, 2024 06:59 AM [facility] B12 Specimen Type: SERUM No comment entered. Ordering Provider: SILVIA REDDY Report Released Date/Time: Aug 11, 2024 03:58 PM Reporting Lab: [facility] [address] Performing Lab: [facility] [place] [id number] B12 757 pg/mL 213-816 Aug 14, 2024 06:59 AM [facility] COMPREHENSIVE METABOLIC PANEL Specimen Type: PLASMA Comment: No hemolysis noted. Ordering Provider: SILVIA REDDY Report Released Date/Time: Aug 11, 2024 03:58 PM Reporting Lab: [facility] [address] Performing Lab: [facility] [address] CREATININE 0.75 mg/dL 0.70-1.30 UREA NITROGEN 13.6 [...] [facility] [address] Performing Lab: [facility] [facility] [address] WBC 4.1 10*3/uL 3.6-11.2 RBC 3.20 10*6/uL [...] Specimen Type: BLOOD Comment: Test Performed by: [id number] Meter #: [id number] Ordering Provider: SILVIA REDDY Report Released Date/Time: Aug 14, 2024 05:52 AM Reporting Lab: [facility] [address] Performing Lab: [facility] [facility] [address] GLUCOSE,BLOOD- poct (STL) 135 mg/dL H 72-99 Aug 13, 2024 04:27 PM [facility] GLUCOSE,BLOOD-poct (STL) Specimen Type: BLOOD Comment: Test Performed by: [id number] Meter #: [id number] Ordering Provider: SILVIA REDDY Report Released Date/Time: Aug 13, 2024 04:41 PM Reporting Lab: [facility] #[address] [facility] [address] Performing Lab: [facility] [address] GLUCOSE,BLOOD- poct (STL) 181 mg/dL H -Aug 13, 2024 11:33 AM [facility] GLUCOSE,BLOOD-poct (STL) Specimen Type: BLOOD Comment: Test Performed by: [id number] Meter #: [id number] Ordering Provider: SILVIA REDDY Report Released Date/Time: Aug 13, 2024 03:55 PM Reporting Lab: [facility] [address] Performing Lab: [facility] [place] [address] GLUCOSE,BLOOD- poct (STL) 140 mg/dL H Aug 13, 2024 05:54 AM [facility] GLUCOSE,BLOOD-poct (STL) Specimen Type: BLOOD Comment: Test Performed by: [id number] Meter #: [id number] Ordering Provider: SILVIA REDDY Report Released Date/Time: Aug 13, 2024 06:20 AM Reporting Lab: [facility] [address] Performing Lab: [facility] [address] GLUCOSE,BLOOD- poct (STL) 112 mg/dL H Aug 12, 2024 04:35 PM [facility] GLUCOSE,BLOOD-poct (STL) Specimen Type: BLOOD Comment: Test Performed by: [id number] Meter #: [id number] Ordering Provider: SILVIA REDDY Report Released Date/Time: Aug 12, 2024 04:47 PM Reporting [facility] [facility] [address] Performing Lab: [facility] [address] GLUCOSE,BLOOD- poct (STL) 128 mg/dL H 72-99 Aug 12, 2024 11:26 AM [facility] GLUCOSE,BLOOD-poct (STL) Specimen Type: BLOOD Comment: Test Performed by: [id number] Meter #: [id number] Ordering Provider: SILVIA REDDY Report Released Date/Time: Aug 12, 2024 11:45 AM Reporting Lab: [facility] [address] Performing Lab: [facility] [address] GLUCOSE,BLOOD- poct (STL) 188 mg/dL H 72-Aug 12, 2024 06:13 AM [facility] GLUCOSE,BLOOD-poct (STL) Specimen Type: BLOOD Comment: Test Performed by: [id number] Meter #: [id number] Ordering Provider: SILVIA REDDY Report Released Date/Time: Aug 12, 2024 06:25 AM Reporting Lab: [facility] [address] Performing Lab: [facility] [address] GLUCOSE,BLOOD- poct (STL) 116 mg/dL H 72-99 Aug 11, 2024 04:10 PM [facility] GLUCOSE,BLOOD-poct (STL) Specimen Type: BLOOD Comment: Test Performed by: [id number] Meter #: [id number] Ordering Provider: SILVIA REDDY Report Released Date/Time: Aug 11, 2024 04:27 PM Reporting Lab: [facility] [place] [address] Performing Lab: [facility] [address] GLUCOSE,BLOOD- poct (STL) 184 mg/dL H 72-99 [...] 11, 2024 02:03 PM Reporting Lab: [address] [address] Performing Lab: [address] [address] MRSA SURVL NARES DNA Negative Negative Jul 20, 2024 11:18 AM [facility] APTT Specimen Type: PLASMA No comment entered. Ordering Provider: MANUEL BAIRD Report Released Date/Time: Jul 19, 2024 04:00 PM Reporting Lab: [address] [address] Performing Lab: [address] [address] APTT 32.1 s 26.7-39.9 Jul 20, 2024 11:18 AM [facility] PT/INR NEW (L-VT) Specimen Type: PLASMA No comment entered. Ordering Provider: MANUEL BAIRD Report Released Date/Time: Jul 19, 2024 04:00 PM Reporting Lab: [address] [address] Performing Lab: [address] [address] PROTIME 14.4 s H 9.4-12.5 INR VALUE 1.3 {INR} Jul 20, 2024 11:18 AM [facility] CBC Specimen Type: BLOOD No comment entered. Ordering Provider: MANUEL BAIRD Report Released Date/Time: Jul 19, 2024 04:00 PM Reporting Lab: [facility] [address] [facility] [address] Performing Lab: [facility] [address] [facility] [address] WBC 4.7 10*3/uL 3.6-11.2 RBC 4.86 10*6/uL [...] Height Weight Body Mass Index Source Aug 18, 2024 07:55 PM 98.2 78 106/65 18 96 [facility] Aug 18, 2024 07:20 PM 0 [facility] Aug 18, 2024 01:52 PM 0 [facility] Aug 18, 2024 10:16 AM 97.7 79 133/79 18 95 [facility] N Aug 18, 2024 05:41 AM 97 71 136/[address] [facility] PRANAV N Advance Directives: All historical and current [...] ADVANCE DIRECTIVE DISCUSSION ERICK BARDALES [facility]
--- OUTSIDE RECORDS SUMMARY | 2024-11-17 04:16 | XMS_ITS ---
[place] DAILY HOSPITALIZATION DATA [facility] Encounter Summary Created on: November 16, 2024 CHET WALKER : 1950 Sex: Male Author Name [facility] Organization [facility] Address [address] [place] [address] Care Team Providers Care Psychological Science Professor Name Role Phone MANUEL BAIRD Primary Care [...] PART A Apr 08, 2017 PART A [id number] [phone] ASHLEY WALKER PATIENT Selected Encounter This section includes the information on record at [place] for the Encounter. Date/Time Encounter Type Encounter Description Reason Pro vider Source Aug 18, 2024 02:56 AM Inpatient Visit DAILY HOSPITALIZATION DATA MARY [...] 24, 2024 10:30 AM AMBULATORY - MEDICINE [facility] Aug 30, 2024 09:30 AM AMBULATORY MEDICINE [facility] Aug 31, 2024 01:00 PM AMBULATORY - SURGERY [facility] Sep 21, 2024 01:30 PM AMBULATORY - MEDICINE [facility] Sep 22, 2024 11:00 AM AMBULATORY - MEDICINE [facility] Sep 29, 2024 12:30 PM AMBULATORY - MEDICINE [facility] Oct 02, 2024 09:30 AM AMBULATORY - MEDICINE [facility] Nov 20, 2024 10:30 AM AMBULATORY - SURGERY [facility] Nov 21, 2024 10:00 AM AMBULATORY - NONE [facility] Dec 11, 2024 10:30 AM AMBULATORY - [...] Aug 17, 2024 03:47 PM Consult Order [facility] Cons [...] Lab: [facility] [address] Performing Lab: [facility] [address] WBC 4.0 10*3/uL 3.6-11.2 RBC 3.65 10*6/uL [...] 10*3/uL 0.00-0.20 Aug 23, 2024 08:21 AM [facility] MAGNESIUM Specimen Type: PLASMA No comment entered. Ordering Provider: SILVIA REDDY Report Released Date/Time: Aug 22, 2024 11:26 AM Reporting Lab: [facility] [address] Performing Lab: [facility] [address] MAGNESIUM 1.8 mg/dL 1.6-2.6 Aug 23, 2024 05:12 AM [facility] GLUCOSE,BLOOD-poct (STL) Specimen Type: BLOOD Comment: Test Performed by: [id number] Meter #: [id number] Ordering Provider: SILVIA REDDY Report Released Date/Time: Aug 23, 2024 05:23 AM Reporting Lab: [facility] [address] Performing Lab: [facility] [address] GLUCOSE,BLOOD- poct (STL) 99 mg/dL 72-99 Aug 23, 2024 02:45 AM [facility] OCCULT BLOOD FIT X1 SCREEN Specimen Type: FECES No comment entered. Ordering Provider: SILVIA REDDY Report Released Date/Time: Aug 22, 2024 11:23 AM Reporting Lab: [facility] [address] [facility] [address] Performing Lab: [facility] [address] [place] [address] OCCULT BLOOD (FIT) #1 OF 1 Negative Negative Aug 22, 2024 07:30 PM [facility] OCCULT BLOOD FIT X1 SCREEN Specimen Type: FECES No comment entered. Ordering Provider: SILVIA REDDY Report Released Date/Time: Aug 22, 2024 11:23 AM Reporting Lab: [facility] [address] [facility] [address] Performing Lab: [facility] [address] [facility] [address] OCCULT BLOOD (FIT) #1 OF 1 Negative Negative Aug 22, 2024 06:15 PM [facility] OCCULT BLOOD FIT X1 SCREEN Specimen Type: FECES No comment entered. Ordering Provider: SILVIA REDDY Report Released Date/Time: Aug 22, 2024 11:23 AM Reporting Lab: [facility] [address] [facility] [address] Performing Lab: [place] [id number] [facility] [address] OCCULT BLOOD (FIT) #1 OF 1 Negative Negative Aug 22, 2024 04:24 PM [facility] GLUCOSE,BLOOD-poct (STL) Specimen Type: BLOOD Comment: Test Performed by: [id number] Meter #: [id number] Ordering Provider: SILVIA REDDY Report Released Date/Time: Aug 22, 2024 04:36 PM Reporting Lab: [facility] [address] Performing Lab: [facility] [address] [facility] [address] GLUCOSE,BLOOD- poct (STL) 176 mg/dL H -Aug 22, 2024 04:23 PM [facility] GLUCOSE,BLOOD-poct (STL) Specimen Type: BLOOD Comment: Test Performed by: [id number] Meter #: [id number] Ordering Provider: SILVIA REDDY Report Released Date/Time: Aug 22, 2024 04:36 PM Reporting Lab: [facility] [address] Performing Lab: [facility] [address] GLUCOSE,BLOOD- poct (STL) 221 mg/dL H -Aug 22, 2024 11:15 AM [facility] GLUCOSE,BLOOD-poct (STL) Specimen Type: BLOOD Comment: Test Performed by: [id number] Meter #: [id number] Ordering Provider: SILVIA REDDY Report Released Date/Time: Aug 22, 2024 11:27 AM Reporting Lab: [facility] [address] Performing Lab: [facility] [address] GLUCOSE,BLOOD- poct (STL) 140 mg/dL H 72-Aug 22, 2024 08:[address] [facility] COMPREHENSIVE METABOLIC PANEL Specimen Type: PLASMA Comment: No hemolysis noted. Ordering Provider: SILVIA REDDY Report Released Date/Time: Aug 17, 2024 01:18 PM Reporting Lab: [facility] [address] [facility] [address] Performing Lab: [facility] [address] [facility] [address] CREATININE 0.80 mg/dL 0.7-1.3 UREA NITROGEN 9.7 [...] Lab: [facility] [address] Performing Lab: [facility] [address] WBC 3.5 10*3/uL L 3.6-11.2 RBC 3.23 [...] NRBC% 0 Aug 22, 2024 08:03 AM [facility] FERRITIN Specimen Type: SERUM No comment entered. Ordering Provider: JUDIT PERKINS Report Released Date/Time: Aug 18, 2024 11:01 AM Reporting Lab: [address] [address] Performing Lab: [address] [address] FERRITIN 79.50 ng/mL 22-275 Aug 22, 2024 08:03 AM [facility] IRON/TIBC PROFILE Specimen Type: SERUM No comment entered. Ordering Provider: JUDIT PERKINS Report Released Date/Time: Aug 18, 2024 11:01 AM Reporting Lab: [address] [address] Performing Lab: [address] [address] TIBC 283 ug/dL 250-450 TRANSFERRIN 226 mg/dL 163-344 IRON SATURATION 7 L 20-50 IRON 19 ug/dL L 65-175 Aug 22, 2024 08:03 AM [facility] B12 Specimen Type: SERUM No comment entered. Ordering Provider: JUDIT PERKINS Report Released Date/Time: Aug 18, 2024 11:01 AM Reporting Lab: [facility] [address] Performing Lab: [facility] [address] B12 631 pg/mL 213-816 Aug 22, 2024 05:03 AM [facility] GLUCOSE,BLOOD-poct (STL) Specimen Type: BLOOD Comment: Test Performed by: [id number] Meter #: [id number] Ordering Provider: SILVIA REDDY Report Released Date/Time: Aug 22, 2024 06:17 AM Reporting Lab: [facility] [address] [facility] [address] Performing Lab: [facility] [address] [facility] [address] GLUCOSE,BLOOD- poct (STL) 170 mg/dL H 72-Aug 21, 2024 04:32 PM [facility] GLUCOSE,BLOOD-poct (STL) Specimen Type: BLOOD Comment: Test Performed by: [id number] Meter #: [id number] Ordering Provider: SILVIA REDDY Report Released Date/Time: Aug 21, 2024 04:49 PM Reporting Lab: [facility] [address] Performing Lab: [facility] [address] [facility] [address] GLUCOSE,BLOOD- poct (STL) 169 mg/dL H -Aug 21, 2024 11:53 AM [facility] GLUCOSE,BLOOD-poct (STL) Specimen Type: BLOOD Comment: Test Performed by: [id number] Meter #: [id number] Ordering Provider: SILVIA REDDY Report Released Date/Time: Aug 21, 2024 12:11 PM Reporting Lab: [facility] [address] [facility] [address] Performing Lab: [facility] [address] [facility] [address] GLUCOSE,BLOOD- poct (STL) 149 mg/dL H 72-Aug 21, 2024 05:10 AM [facility] GLUCOSE,BLOOD-poct (STL) Specimen Type: BLOOD Comment: Test Performed by: [id number] Meter #: [id number] Ordering Provider: SILVIA REDDY Report Released Date/Time: Aug 21, 2024 05:27 AM Reporting Lab: [facility] [address] [facility] [address] Performing Lab: [facility] [address] [facility] [address] GLUCOSE,BLOOD- poct (STL) 118 mg/dL H 72-Aug 20, 2024 04:38 PM [facility] GLUCOSE,BLOOD-poct (STL) Specimen Type: BLOOD Comment: Test Performed by: [id number] Meter #: [id number] Ordering Provider: SILVIA REDDY Report Released Date/Time: Aug 21, 2024 01:55 AM Reporting Lab: [facility] [address] [facility] [address] Performing Lab: [facility] [address] [place] [address] GLUCOSE,BLOOD- poct (STL) 169 mg/dL H -Aug 20, 2024 04:36 PM [facility] GLUCOSE,BLOOD-poct (STL) Specimen Type: BLOOD Comment: Test Performed by: [id number] Meter #: [id number] Ordering Provider: SILVIA REDDY Report Released Date/Time: Aug 21, 2024 01:55 AM Reporting Lab: [facility] [address] [facility] [address] Performing Lab: [facility] [address] [facility] [address] GLUCOSE,BLOOD- poct (STL) 395 mg/dL H 72-Aug 20, 2024 11:45 AM [facility] GLUCOSE,BLOOD-poct (STL) Specimen Type: BLOOD Comment: Test Performed by: [id number] Meter #: [id number] Ordering Provider: SILVIA REDDY Report Released Date/Time: Aug 20, 2024 11:56 AM Reporting Lab: [facility] [address] [place] [address] Performing Lab: [facility] [address] GLUCOSE,BLOOD- poct (STL) 169 mg/dL H -Aug 20, 2024 05:06 AM [facility] GLUCOSE,BLOOD-poct (STL) Specimen Type: BLOOD Comment: Test Performed by: [id number] Meter #: [id number] Ordering Provider: SILVIA REDDY Report Released Date/Time: Aug 20, 2024 06:05 AM Reporting Lab: [facility] [address] Performing Lab: [facility] [address] [facility] [address] GLUCOSE,BLOOD- poct (STL) 115 mg/dL H -Aug 19, 2024 04:23 PM [facility] GLUCOSE,BLOOD-poct (STL) Specimen Type: BLOOD Comment: Test Performed by: [id number] Meter #: [id number] Ordering Provider: SILVIA REDDY Report Released Date/Time: Aug 19, 2024 05:54 PM Reporting Lab: [facility] [address] Performing Lab: [facility] [address] GLUCOSE,BLOOD- poct (STL) 137 mg/dL H -Aug 19, 2024 11:28 AM [facility] GLUCOSE,BLOOD-poct (STL) Specimen Type: BLOOD Comment: Test Performed by: [id number] Meter #: [id number] Ordering Provider: SILVIA REDDY Report Released Date/Time: Aug 19, 2024 11:51 AM Reporting Lab: [facility] [address] Performing Lab: [facility] [address] GLUCOSE,BLOOD- poct (STL) 190 mg/dL H Aug 19, 2024 05:21 AM [facility] GLUCOSE,BLOOD-poct (STL) Specimen Type: BLOOD Comment: Test Performed by: [id number] Meter #: [id number] Ordering Provider: SILVIA REDDY Report Released Date/Time: Aug 19, 2024 05:56 AM Reporting Lab: [facility] [address] Performing Lab: [facility] [address] [facility] [address] GLUCOSE,BLOOD- poct (STL) 130 mg/dL H Aug 18, 2024 04:49 PM [facility] GLUCOSE,BLOOD-poct (STL) Specimen Type: BLOOD Comment: Test Performed by: [id number] Meter #: [id number] Ordering Provider: SILVIA REDDY Report Released Date/Time: Aug 18, 2024 05:01 PM Reporting Lab: [facility] [address] Performing Lab: [facility] [address] [facility] [address] GLUCOSE,BLOOD- poct (STL) 129 mg/dL H Aug 18, 2024 11:23 AM [facility] GLUCOSE,BLOOD-poct (STL) Specimen Type: BLOOD Comment: Test Performed by: [id number] Meter #: [id number] Ordering Provider: SILVIA REDDY Report Released Date/Time: Aug 18, 2024 11:41 AM Reporting Lab: [facility] [facility] [address] Performing Lab: [facility] [address] [facility] [address] GLUCOSE,BLOOD- poct (STL) 180 mg/dL H Aug 18, 2024 05:08 AM [facility] GLUCOSE,BLOOD-poct (STL) Specimen Type: BLOOD Comment: Test Performed by: [id number] Meter #: [id number] Ordering Provider: SILVIA REDDY Report Released Date/Time: Aug 18, 2024 05:31 AM Reporting Lab: [facility] [address] Performing Lab: [facility] [facility] [address] GLUCOSE,BLOOD- poct (STL) 127 mg/dL H -Aug 17, 2024 07:32 PM [facility] GLUCOSE,BLOOD-poct (STL) Specimen Type: BLOOD Comment: Test Performed by: [id number] Meter #: [id number] Ordering Provider: SILVIA REDDY Report Released Date/Time: Aug 17, 2024 07:59 PM Reporting Lab: [facility] [facility] [address] Performing Lab: [facility] [address] [facility] [address] GLUCOSE,BLOOD- poct (STL) 154 mg/dL H -Aug 17, 2024 04:24 PM [facility] GLUCOSE,BLOOD-poct (STL) Specimen Type: BLOOD Comment: Test Performed by: [id number] Meter #: [id number] Ordering Provider: SILVIA REDDY Report Released Date/Time: Aug 17, 2024 04:35 PM Reporting Lab: [facility] [facility] [address] Performing Lab: [facility] [address] GLUCOSE,BLOOD- poct (STL) 178 mg/dL H -Aug 17, 2024 05:09 AM [facility] GLUCOSE,BLOOD-poct (STL) Specimen Type: BLOOD Comment: Test Performed by: [id number] Meter #: [id number] Ordering Provider: SILVIA REDDY Report Released Date/Time: Aug 17, 2024 05:54 AM Reporting Lab: [facility] [address] [place] [address] Performing Lab: [facility] [address] GLUCOSE,BLOOD- poct (STL) 124 mg/dL H -Aug 16, 2024 07:40 PM [facility] GLUCOSE,BLOOD-poct (STL) Specimen Type: BLOOD Comment: Test Performed by: [id number] Meter #: [id number] Ordering Provider: SILVIA REDDY Report Released Date/Time: Aug 16, 2024 08:28 PM Reporting Lab: [facility] [address] Performing Lab: [facility] [facility] [address] GLUCOSE,BLOOD- poct (STL) 144 mg/dL H Aug 16, 2024 04:19 PM [facility] GLUCOSE,BLOOD-poct (STL) Specimen Type: BLOOD Comment: Test Performed by: [id number] Meter #: [id number] Ordering Provider: SILVIA REDDY Report Released Date/Time: Aug 16, 2024 04:45 PM Reporting Lab: [facility] [address] Performing Lab: [facility] [facility] [address] GLUCOSE,BLOOD- poct (STL) 138 mg/dL H Aug 16, 2024 11:52 AM [facility] GLUCOSE,BLOOD-poct (STL) Specimen Type: BLOOD Comment: Test Performed by: [id number] Meter #: [id number] Ordering Provider: SILVIA REDDY Report Released Date/Time: Aug 16, 2024 12:04 PM Reporting Lab: [facility] [address] Performing Lab: [facility] [address] GLUCOSE,BLOOD- poct (STL) 135 mg/dL H Aug 16, 2024 05:24 AM [facility] GLUCOSE,BLOOD-poct (STL) Specimen Type: BLOOD Comment: Test Performed by: [id number] Meter #: [id number] Ordering Provider: SILVIA REDDY Report Released Date/Time: Aug 16, 2024 05:38 AM Reporting Lab: [facility] [address] Performing Lab: [facility] [address] GLUCOSE,BLOOD- poct (STL) 151 mg/dL H Aug 15, 2024 07:31 PM [facility] GLUCOSE,BLOOD-poct (STL) Specimen Type: BLOOD Comment: Test Performed by: [id number] Meter #: [id number] Ordering Provider: SILVIA REDDY Report Released Date/Time: Aug 15, 2024 08:07 PM Reporting Lab: [facility] [address] Performing Lab: [facility] [address] GLUCOSE,BLOOD- poct (STL) 173 mg/dL H Aug 15, 2024 04:18 PM [facility] GLUCOSE,BLOOD-poct (STL) Specimen Type: BLOOD Comment: Test Performed by: [id number] Meter #: [id number] Ordering Provider: SILVIA REDDY Report Released Date/Time: Aug 15, 2024 04:59 PM Reporting Lab: [facility] [address] Performing Lab: [facility] [address] GLUCOSE,BLOOD- poct (STL) 136 mg/dL H Aug 15, 2024 04:16 PM [facility] GLUCOSE,BLOOD-poct (STL) Specimen Type: BLOOD Comment: Test Performed by: [id number] Meter #: [id number] Ordering Provider: SILVIA REDDY Report Released Date/Time: Aug 15, 2024 04:59 PM Reporting Lab: [facility] [address] Performing Lab: [facility] [address] GLUCOSE,BLOOD- poct (STL) 194 mg/dL H -Aug 15, 2024 11:39 AM [facility] GLUCOSE,BLOOD-poct (STL) Specimen Type: BLOOD Comment: Test Performed by: [id number] Meter #: [id number] Ordering Provider: SILVIA REDDY Report Released Date/Time: Aug 15, 2024 12:00 PM Reporting Lab: [facility] [address] Performing Lab: [facility] [address] GLUCOSE,BLOOD- poct (STL) 127 mg/dL H -Aug 15, 2024 05:07 AM [facility] GLUCOSE,BLOOD-poct (STL) Specimen Type: BLOOD Comment: Test Performed by: [id number] Meter #: [id number] Ordering Provider: SILVIA REDDY Report Released Date/Time: Aug 15, 2024 06:14 AM Reporting Lab: [facility] [address] Performing Lab: [facility] [address] GLUCOSE,BLOOD- poct (STL) 151 mg/dL H -Aug 14, 2024 04:22 PM [facility] GLUCOSE,BLOOD-poct (STL) Specimen Type: BLOOD Comment: Test Performed by: [id number] Meter #: [id number] Ordering Provider: SILVIA REDDY Report Released Date/Time: Aug 14, 2024 04:52 PM Reporting Lab: [facility] [place] [address] Performing Lab: [facility] [address] GLUCOSE,BLOOD- poct (STL) 129 mg/dL H 72-99 Aug 14, 2024 11:21 AM [facility] GLUCOSE,BLOOD-poct (STL) Specimen Type: BLOOD Comment: Test Performed by: [id number] Meter #: [id number] Ordering Provider: SILVIA REDDY Report Released Date/Time: Aug 14, 2024 11:37 AM Reporting Lab: [facility] [address] Performing Lab: [facility] [address] GLUCOSE,BLOOD- poct (STL) 135 mg/dL H 72-99 Aug 14, 2024 06:59 AM [facility] QUANTIFERON-TB,4 TUBE Specimen Type: BLOOD [...] For additional information, please refer to [email or web address] (This link is being provided for information/ educational purposes only.) Test Performed by [employer] TrevorSander, [facility], [address] [place] [address] Tommie Garcia M.D., Ph.D., Director of Laboratories , [facility] [id number] Ordering Provider: SILVIA REDDY Report Released Date/Time: Aug 11, 2024 03:58 PM Reporting Lab: [facility] [address] [facility] [address] Performing Lab: [facility] [id number] [place] [address] .NIL - QUANTIFERON 0.04 [IU]/mL .MITOGEN-NIL 0.39 [IU]/mL .QUANTIFERON INDETERMINATE NEGATIVE .TB1-NIL <0.00 [IU]/mL .TB2-NIL <0.00 [IU]/mL Aug 14, 2024 06:59 AM [facility] COMPREHENSIVE METABOLIC PANEL Specimen Type: PLASMA Comment: No hemolysis noted. Ordering Provider: SILVIA REDDY Report Released Date/Time: Aug 11, 2024 03:58 PM Reporting Lab: [facility] [address] Performing Lab: [facility] [address] CREATININE 0.75 mg/dL 0.70-1.30 UREA NITROGEN 13.6 [...] 06:59 AM [facility] CBC Specimen Type: BLOOD No comment entered. Ordering Provider: SILVIA REDDY Report Released Date/Time: Aug 11, 2024 03:58 PM Reporting Lab: [facility] [address] Performing Lab: [facility] [place] [phone] WBC 4.1 10*3/uL 3.6-11.2 RBC 3.20 10*6/uL [...] 10*3/uL 0.00-0.20 Aug 14, 2024 06:59 AM [facility] MAGNESIUM Specimen Type: PLASMA Comment: No hemolysis noted. Ordering Provider: SILVIA REDDY Report Released Date/Time: Aug 11, 2024 03:58 PM Reporting Lab: [facility] [address] Performing Lab: [facility] [place] [phone] MAGNESIUM 1.9 mg/dL 1.6-2.6 Aug 14, 2024 06:59 AM [facility] B12 Specimen Type: SERUM No comment entered. Ordering Provider: SILVIA REDDY Report Released Date/Time: Aug 11, 2024 03:58 PM Reporting Lab: [facility] [address] Performing Lab: [facility] [address] B12 757 pg/mL 213-816 Aug 14, 2024 06:59 AM [facility] ([facility]) Specimen Type: SERUM No comment entered. Ordering Provider: SILVIA REDDY Report Released Date/Time: Aug 11, 2024 03:58 PM Reporting Lab: [facility] [address] Performing Lab: [facility] [address] FOLATE ([facility]) 6.8 ng/mL L 7-20 Aug 14, 2024 06:59 AM [facility] VITAMIN D, 25-HYDROXY Specimen Type: SERUM No comment entered. Ordering Provider: SILVIA REDDY Report Released Date/Time: Aug 11, 2024 03:58 PM Reporting Lab: [facility] [id number] Performing Lab: [facility] [address] VITAMIN D, 25-HYDROXY 8.9 ng/mL L 30-96 Aug 14, 2024 05:08 AM [facility] GLUCOSE,BLOOD-poct (L) Specimen Type: BLOOD Comment: Test Performed by: [id number] Meter #: [id number] Ordering Provider: SILVIA REDDY Report Released Date/Time: Aug 14, 2024 05:52 AM Reporting Lab: [facility] [id number] Performing Lab: [facility] [address] GLUCOSE,BLOOD- poct (STL) 135 mg/dL H 72-99 Aug 13, 2024 04:27 PM [facility] GLUCOSE,BLOOD-poct (STL) Specimen Type: BLOOD Comment: Test Performed by: [id number] Meter #: [id number] Ordering Provider: SILVIA REDDY Report Released Date/Time: Aug 13, 2024 04:41 PM Reporting Lab: [facility] [address] Performing Lab: [facility] [address] GLUCOSE,BLOOD- poct (STL) 181 mg/dL H -Aug 13, 2024 11:33 AM [facility] GLUCOSE,BLOOD-poct (STL) Specimen Type: BLOOD Comment: Test Performed by: [id number] Meter #: [id number] Ordering Provider: SILVIA REDDY Report Released Date/Time: Aug 13, 2024 03:55 PM Reporting Lab: [facility] [phone] Performing Lab: [facility] [place] [address] GLUCOSE,BLOOD- poct (STL) 140 mg/dL H Aug 13, 2024 05:54 AM [facility] GLUCOSE,BLOOD-poct (STL) Specimen Type: BLOOD Comment: Test Performed by: [id number] Meter #: [id number] Ordering Provider: SILVIA REDDY Report Released Date/Time: Aug 13, 2024 06:20 AM Reporting Lab: [facility] [address] Performing Lab: [facility] [address] GLUCOSE,BLOOD- poct (STL) 112 mg/dL H Aug 12, 2024 04:35 PM [facility] GLUCOSE,BLOOD-poct (STL) Specimen Type: BLOOD Comment: Test Performed by: [id number] Meter #: [id number] Ordering Provider: SILVIA REDDY Report Released Date/Time: Aug 12, 2024 04:47 PM Reporting Lab: [facility] [address] Performing Lab: [facility] [address] [place] [facility] [address] GLUCOSE,BLOOD- poct (STL) 128 mg/dL H 72-99 Aug 12, 2024 11:26 AM [facility] GLUCOSE,BLOOD-poct (STL) Specimen Type: BLOOD Comment: Test Performed by: [id number] Meter #: [id number] Ordering Provider: SILVIA REDDY Report Released Date/Time: Aug 12, 2024 11:45 AM Reporting Lab: [facility] [address] [facility] [address] Performing Lab: [facility] [address] [facility] [address] GLUCOSE,BLOOD- poct (STL) 188 mg/dL H 72-Aug 12, 2024 06:13 AM [facility] GLUCOSE,BLOOD-poct (STL) Specimen Type: BLOOD Comment: Test Performed by: [id number] Meter #: [id number] Ordering Provider: SILVIA REDDY Report Released Date/Time: Aug 12, 2024 06:25 AM Reporting Lab: [facility] [address] [facility] [address] Performing Lab: [facility] [address] [facility] [address] GLUCOSE,BLOOD- poct (STL) 116 mg/dL H 72-99 Aug 11, 2024 04:10 PM [facility] GLUCOSE,BLOOD-poct (STL) Specimen Type: BLOOD Comment: Test Performed by: [id number] Meter #: [id number] Ordering Provider: SILVIA REDDY Report Released Date/Time: Aug 11, 2024 04:27 PM Reporting Lab: [facility] [address] [place] [id number] Performing Lab: [facility] [address] GLUCOSE,BLOOD- poct (STL) 184 mg/dL H 72-99 [...] Aug 11, 2024 02:03 PM Reporting Lab: [address] [address] Performing Lab: [address] [address] MRSA SURVL NARES DNA Negative Negative Jul 20, 2024 11:18 AM [facility] APTT Specimen Type: PLASMA No comment entered. Ordering Provider: MANUEL BAIRD Report Released Date/Time: Jul 19, 2024 04:00 PM Reporting Lab: [address] [address] Performing Lab: [address] [address] APTT 32.1 s 26.7-39.9 Jul 20, 2024 11:18 AM [facility] PT/INR NEW (L-GA) Specimen Type: PLASMA No comment entered. Ordering Provider: MANUEL BAIRD Report Released Date/Time: Jul 19, 2024 04:00 PM Reporting Lab: [address] [address] Performing Lab: [address] [address] PROTIME 14.4 s H 9.4-12.5 INR VALUE 1.3 {INR} Jul 20, 2024 11:18 AM [facility] CBC Specimen Type: BLOOD No comment entered. Ordering Provider: MANUEL BAIRD Report Released Date/Time: Jul 19, 2024 04:00 PM Reporting Lab: [facility] [address] [facility] [address] Performing Lab: [facility] [address] [address] WBC 4.7 10*3/uL 3.6-11.2 RBC 4.86 10*6/uL [...] 07:55 PM 98.2 78 106/65 18 96 [facility] N Aug 18, 2024 07:20 PM 0 [facility] Aug 18, 2024 01:52 PM 0 [facility] Aug 18, 2024 10:16 AM 97.7 79 133/79 18 95 [facility] N Aug 18, 2024 05:41 AM 97 71 136/74 18 96 0 [facility] PRANAV N Advance Directives: All historical and [...] 2017 ADVANCE DIRECTIVE DISCUSSION ERICK BARDALES [facility]
--- OUTSIDE RECORDS SUMMARY | 2024-11-17 04:17 | XMS_ITS ---
[facility] DAILY HOSPITALIZATION DATA [facility] Encounter Summary Created on: November 16, 2024 CHET WALKER : 1950 Sex: Male Author Name [facility] Organization [facility] Address [address] [place] [address] Care Team Providers Care Manuscripts Archivist Name Role Phone MANUEL BAIRD Primary Care [...] PART A Apr 08, 2017 PART A [id number] [phone] ASHLEY WALKER PATIENT Selected Encounter This section includes the information on record at ME for the Encounter. Date/Time Encounter Type Encounter Description Reason Pro vider Source Aug 19, 2024 01:28 AM Inpatient Visit DAILY HOSPITALIZATION DATA [facility] Encounter Template Text not used by VA [...] 21, 2024 10:00 AM AMBULATORY - NONE [facility] Dec 11, 2024 10:30 AM [...] theEncounter. The data comes from all [facility]. Test Date/Time Test Type Test Details Facility Name Aug 02, 2024 12:00 AM Laboratory - Chemistry Order CBC BLOOD STAT SP [facility] Aug 02, 2024 12:00 AM Laboratory - Chemistry Order COMPREHENSIVE METABOLIC PANEL GREEN LI/HEP BLD/PLAS PLASMA SP [facility] Aug 17, 2024 03:47 PM Consult Order [facility] Cons Bedside [facility] [...] 2024 08:21 AM [facility] CBC Specimen Type: BLOOD No comment entered. Ordering Provider: SILVIA REDDY Report Released Date/Time: Aug 22, 2024 11:19 AM Reporting Lab: [facility] #1 [facility] [address] Performing Lab: [facility] #1 [facility] [address] WBC 4.0 10*3/uL 3.6-11.2 RBC 3.65 10*6/uL [...] 10*3/uL 0.00-0.20 Aug 23, 2024 08:21 AM [facility] MAGNESIUM Specimen Type: PLASMA No comment entered. Ordering Provider: SILVIA REDDY Report Released Date/Time: Aug 22, 2024 11:26 AM Reporting Lab: [facility]1 [facility] [address] Performing Lab: [facility] #1 [facility] [address] MAGNESIUM 1.8 mg/dL 1.6-2.6 Aug 23, 2024 05:12 AM [facility] GLUCOSE,BLOOD-poct (STL) Specimen Type: BLOOD Comment: Test Performed by: [id number] Meter #: [id number] Ordering Provider: SILVIA REDDY Report Released Date/Time: Aug 23, 2024 05:23 AM Reporting Lab: [facility]1 [facility] [address] Performing Lab: [facility] #1 [facility] [address] GLUCOSE,BLOOD- poct (STL) 99 mg/dL 72-99 Aug 23, 2024 02:45 AM [facility] OCCULT BLOOD FIT X1 SCREEN Specimen Type: FECES No comment entered. Ordering Provider: SILVIA REDDY Report Released Date/Time: Aug 22, 2024 11:23 AM Reporting Lab: [facility] [address] [facility] [place] [address] Performing Lab: [place] [address] [facility] [address] OCCULT BLOOD (FIT) #1 OF 1 Negative Negative Aug 22, 2024 07:30 PM [facility] OCCULT BLOOD FIT X1 SCREEN Specimen Type: FECES No comment entered. Ordering Provider: SILVIA REDDY Report Released Date/Time: Aug 22, 2024 11:23 AM Reporting Lab: [facility] [address] [place] [address] Performing Lab: [facility] [address] [place] [address] OCCULT BLOOD (FIT) #1 OF 1 Negative Negative Aug 22, 2024 06:15 PM [facility] OCCULT BLOOD FIT X1 SCREEN Specimen Type: FECES No comment entered. Ordering Provider: SILVIA REDDY Report Released Date/Time: Aug 22, 2024 11:23 AM Reporting Lab: [address] [address] Performing Lab: [facility] [address] [facility] [address] OCCULT BLOOD (FIT) #1 OF 1 Negative Negative Aug 22, 2024 04:24 PM [facility] GLUCOSE,BLOOD-poct (STL) Specimen Type: BLOOD Comment: Test Performed by: [id number] Meter #: [id number] Ordering Provider: SILVIA REDDY Report Released Date/Time: Aug 22, 2024 04:36 PM Reporting Lab: [facility]1 [facility] [address] Performing Lab: [facility] #1 [facility] [address] GLUCOSE,BLOOD- poct (STL) 176 mg/dL H -Aug 22, 2024 04:23 PM [facility] GLUCOSE,BLOOD-poct (STL) Specimen Type: BLOOD Comment: Test Performed by: [id number] Meter #: [id number] Ordering Provider: SILVIA REDDY Report Released Date/Time: Aug 22, 2024 04:36 PM Reporting Lab: [facility]1 [facility] [address] Performing Lab: [facility] #1 [facility] [address] GLUCOSE,BLOOD- poct (STL) 221 mg/dL H 72-Aug 22, 2024 11:15 AM [facility] GLUCOSE,BLOOD-poct (STL) Specimen Type: BLOOD Comment: Test Performed by: [id number] Meter #: [id number] Ordering Provider: SILVIA REDDY Report Released Date/Time: Aug 22, 2024 11:27 AM Reporting Lab: [facility] #1 [facility] [address] Performing Lab: [facility] #1 [facility] [address] GLUCOSE,BLOOD- poct (STL) 140 mg/dL H 72-Aug 22, 2024 08:[address] [facility] COMPREHENSIVE METABOLIC PANEL Specimen Type: PLASMA Comment: No hemolysis noted. Ordering Provider: SILVIA REDDY Report Released Date/Time: Aug 17, 2024 01:18 PM Reporting Lab: [facility] [address] [facility] [place] [address] Performing Lab: [address] [address] CREATININE 0.80 mg/dL 0.7-1.3 UREA NITROGEN 9.7 [...] 22, 2024 08:03 AM [facility] CBC Specimen Type: BLOOD No comment entered. Ordering Provider: SILVIA REDDY Report Released Date/Time: Aug 17, 2024 01:18 PM Reporting Lab: [facility]1 [facility] [address] Performing Lab: [facility] #1 [facility] [address] WBC 3.5 10*3/uL L 3.6-11.2 RBC 3.23 [...] NRBC% 0 Aug 22, 2024 08:03 AM [facility] FERRITIN Specimen Type: SERUM No comment entered. Ordering Provider: JUDIT PERKINS Report Released Date/Time: Aug 18, 2024 11:01 AM Reporting Lab: [address] [address] Performing Lab: [address] [address] FERRITIN 79.50 ng/mL 22-275 Aug 22, 2024 08:03 AM [facility] IRON/TIBC PROFILE Specimen Type: SERUM No comment entered. Ordering Provider: JUDIT PERKINS Report Released Date/Time: Aug 18, 2024 11:01 AM Reporting Lab: [address] [address] Performing Lab: [address] [address] TIBC 283 ug/dL 250-450 TRANSFERRIN 226 mg/dL 163-344 IRON SATURATION 7 L 20-50 IRON 19 ug/dL L 65-175 Aug 22, 2024 08:03 AM [facility] B12 Specimen Type: SERUM No comment entered. Ordering Provider: JUDIT PERKINS Report Released Date/Time: Aug 18, 2024 11:01 AM Reporting Lab: [facility]1 [facility] [address] Performing Lab: [facility] #1 [facility] [address] B12 631 pg/mL 213-816 Aug 22, 2024 05:03 AM [facility] GLUCOSE,BLOOD-poct (STL) Specimen Type: BLOOD Comment: Test Performed by: [id number] Meter #: [id number] Ordering Provider: SILVIA REDDY Report Released Date/Time: Aug 22, 2024 06:17 AM Reporting Lab: [facility] #1 [facility] [address] Performing Lab: [facility] #1 [facility] [address] GLUCOSE,BLOOD- poct (STL) 170 mg/dL H 72-Aug 21, 2024 04:32 PM [facility] GLUCOSE,BLOOD-poct (STL) Specimen Type: BLOOD Comment: Test Performed by: [id number] Meter #: [id number] Ordering Provider: SILVIA REDDY Report Released Date/Time: Aug 21, 2024 04:49 PM Reporting Lab: [facility] #1 [facility] [address] Performing Lab: [facility] #1 [facility] [address] GLUCOSE,BLOOD- poct (STL) 169 mg/dL H -Aug 21, 2024 11:53 AM [facility] GLUCOSE,BLOOD-poct (STL) Specimen Type: BLOOD Comment: Test Performed by: [id number] Meter #: [id number] Ordering Provider: SILVIA REDDY Report Released Date/Time: Aug 21, 2024 12:11 PM Reporting Lab: [facility] #1 [facility] [address] Performing Lab: [facility] #1 [facility] [address] GLUCOSE,BLOOD- poct (STL) 149 mg/dL H 72-Aug 21, 2024 05:10 AM [facility] GLUCOSE,BLOOD-poct (STL) Specimen Type: BLOOD Comment: Test Performed by: [id number] Meter #: [id number] Ordering Provider: SILVIA REDDY Report Released Date/Time: Aug 21, 2024 05:27 AM Reporting Lab: [facility] #1 [place] [address] Performing Lab: [facility] #1 [place] [address] GLUCOSE,BLOOD- poct (STL) 118 mg/dL H 72-99 Aug 20, 2024 04:38 PM [facility] GLUCOSE,BLOOD-poct (STL) Specimen Type: BLOOD Comment: Test Performed by: [id number] Meter #: [id number] Ordering Provider: SILVIA REDDY Report Released Date/Time: Aug 21, 2024 01:55 AM Reporting Lab: [facility] #1 [place] [address] Performing Lab: [facility] #1 [place] [address] GLUCOSE,BLOOD- poct (STL) 169 mg/dL H 72-Aug 20, 2024 04:36 PM [facility] GLUCOSE,BLOOD-poct (STL) Specimen Type: BLOOD Comment: Test Performed by: [id number] Meter #: [id number] Ordering Provider: SILVIA REDDY Report Released Date/Time: Aug 21, 2024 01:55 AM Reporting Lab: [facility] #1 [place] [address] Performing Lab: [facility] #1 [place] [address] GLUCOSE,BLOOD- poct (STL) 395 mg/dL H 72-99 Aug 20, 2024 11:45 AM [facility] GLUCOSE,BLOOD-poct (STL) Specimen Type: BLOOD Comment: Test Performed by: [id number] Meter #: [id number] Ordering Provider: SILVIA REDDY Report Released Date/Time: Aug 20, 2024 11:56 AM Reporting Lab: [facility] #1 [place] [phone] Performing Lab: [facility] #1 [facility] [address] GLUCOSE,BLOOD- poct (STL) 169 mg/dL H 72-Aug 20, 2024 05:06 AM [facility] GLUCOSE,BLOOD-poct (STL) Specimen Type: BLOOD Comment: Test Performed by: [id number] Meter #: [id number] Ordering Provider: SILVIA REDDY Report Released Date/Time: Aug 20, 2024 06:05 AM Reporting Lab: [facility] #1 [facility] [address] Performing Lab: [facility] #1 [facility] [address] GLUCOSE,BLOOD- poct (STL) 115 mg/dL H -Aug 19, 2024 04:23 PM [facility] GLUCOSE,BLOOD-poct (STL) Specimen Type: BLOOD Comment: Test Performed by: [id number] Meter #: [id number] Ordering Provider: SILVIA REDDY Report Released Date/Time: Aug 19, 2024 05:54 PM Reporting Lab: [facility] #1 [facility] [address] Performing Lab: [facility] #1 [facility] [address] GLUCOSE,BLOOD- poct (STL) 137 mg/dL H 72-Aug 19, 2024 11:28 AM [facility] GLUCOSE,BLOOD-poct (STL) Specimen Type: BLOOD Comment: Test Performed by: [id number] Meter #: [id number] Ordering Provider: SILVIA REDDY Report Released Date/Time: Aug 19, 2024 11:51 AM Reporting Lab: [facility]1 [facility] [address] Performing Lab: [facility] #1 [facility] [address] GLUCOSE,BLOOD- poct (STL) 190 mg/dL H 72-99 Aug 19, 2024 05:21 AM [facility] GLUCOSE,BLOOD-poct (STL) Specimen Type: BLOOD Comment: Test Performed by: [id number] Meter #: [id number] Ordering Provider: SILVIA REDDY Report Released Date/Time: Aug 19, 2024 05:56 AM Reporting Lab: [facility] #1 [facility] [address] Performing Lab: [facility] #1 [facility] [address] GLUCOSE,BLOOD- poct (STL) 130 mg/dL H Aug 18, 2024 04:49 PM [facility] GLUCOSE,BLOOD-poct (STL) Specimen Type: BLOOD Comment: Test Performed by: [id number] Meter #: [id number] Ordering Provider: SILVIA REDDY Report Released Date/Time: Aug 18, 2024 05:01 PM Reporting Lab: [facility] #1 [facility] [address] Performing Lab: [facility] #1 [facility] [address] GLUCOSE,BLOOD- poct (STL) 129 mg/dL H Aug 18, 2024 11:23 AM [facility] GLUCOSE,BLOOD-poct (STL) Specimen Type: BLOOD Comment: Test Performed by: [id number] Meter #: [id number] Ordering Provider: SILVIA REDDY Report Released Date/Time: Aug 18, 2024 11:41 AM Reporting Lab: [facility] #1 [facility] [address] Performing Lab: [facility] #1 [facility] [address] GLUCOSE,BLOOD- poct (STL) 180 mg/dL H Aug 18, 2024 05:08 AM [facility] GLUCOSE,BLOOD-poct (STL) Specimen Type: BLOOD Comment: Test Performed by: [id number] Meter #: [id number] Ordering Provider: SILVIA REDDY Report Released Date/Time: Aug 18, 2024 05:31 AM Reporting Lab: [facility] #1 [place] [address] Performing Lab: [facility] #1 [place] [phone] GLUCOSE,BLOOD- poct (STL) 127 mg/dL H -Aug 17, 2024 07:32 PM [facility] GLUCOSE,BLOOD-poct (STL) Specimen Type: BLOOD Comment: Test Performed by: [id number] Meter #: [id number] Ordering Provider: SILVIA REDDY Report Released Date/Time: Aug 17, 2024 07:59 PM Reporting Lab: [facility] #1 [place] [address] Performing Lab: [facility] #1 [place] [address] GLUCOSE,BLOOD- poct (STL) 154 mg/dL H -Aug 17, 2024 04:24 PM [facility] GLUCOSE,BLOOD-poct (STL) Specimen Type: BLOOD Comment: Test Performed by: [id number] Meter #: [id number] Ordering Provider: SILVIA REDDY Report Released Date/Time: Aug 17, 2024 04:35 PM Reporting Lab: [facility] #1 [place] [address] Performing Lab: [facility] #1 [place] [address] GLUCOSE,BLOOD- poct (STL) 178 mg/dL H -Aug 17, 2024 05:09 AM [facility] GLUCOSE,BLOOD-poct (STL) Specimen Type: BLOOD Comment: Test Performed by: [id number] Meter #: [id number] Ordering Provider: SILVIA REDDY Report Released Date/Time: Aug 17, 2024 05:54 AM Reporting Lab: [facility] #1 [place] [phone] Performing Lab: [facility] #1 [facility] [address] GLUCOSE,BLOOD- poct (STL) 124 mg/dL H 72-Aug 16, 2024 07:40 PM [facility] GLUCOSE,BLOOD-poct (STL) Specimen Type: BLOOD Comment: Test Performed by: [id number] Meter #: [id number] Ordering Provider: SILVIA REDDY Report Released Date/Time: Aug 16, 2024 08:28 PM Reporting Lab: [facility]1 [facility] [address] Performing Lab: [facility] #1 [facility] [address] GLUCOSE,BLOOD- poct (STL) 144 mg/dL H -Aug 16, 2024 04:19 PM [facility] GLUCOSE,BLOOD-poct (STL) Specimen Type: BLOOD Comment: Test Performed by: [id number] Meter #: [id number] Ordering Provider: SILVIA REDDY Report Released Date/Time: Aug 16, 2024 04:45 PM Reporting Lab: [facility] #1 [facility] [address] Performing Lab: [facility] #1 [facility] [address] GLUCOSE,BLOOD- poct (STL) 138 mg/dL H -Aug 16, 2024 11:52 AM [facility] GLUCOSE,BLOOD-poct (STL) Specimen Type: BLOOD Comment: Test Performed by: [id number] Meter #: [id number] Ordering Provider: SILVIA REDDY Report Released Date/Time: Aug 16, 2024 12:04 PM Reporting Lab: [facility]1 [facility] [address] Performing Lab: [facility] #1 [facility] [address] GLUCOSE,BLOOD- poct (STL) 135 mg/dL H 72- Aug 16, 2024 05:24 AM [facility] GLUCOSE,BLOOD-poct (STL) Specimen Type: BLOOD Comment: Test Performed by: [id number] Meter #: [id number] Ordering Provider: SILVIA REDDY Report Released Date/Time: Aug 16, 2024 05:38 AM Reporting Lab: [facility] #1 [facility] [address] Performing Lab: [facility] #1 [facility] [address] GLUCOSE,BLOOD- poct (STL) 151 mg/dL H Aug 15, 2024 07:31 PM [facility] GLUCOSE,BLOOD-poct (STL) Specimen Type: BLOOD Comment: Test Performed by: [id number] Meter #: [id number] Ordering Provider: SLIVIA REDDY Report Released Date/Time: Aug 15, 2024 08:07 PM Reporting Lab: [facility]1 [facility] [address] Performing Lab: [facility] #1 [facility] [address] GLUCOSE,BLOOD- poct (STL) 173 mg/dL H Aug 15, 2024 04:18 PM [facility] GLUCOSE,BLOOD-poct (STL) Specimen Type: BLOOD Comment: Test Performed by: [id number] Meter #: [id number] Ordering Provider: SILVIA REDDY Report Released Date/Time: Aug 15, 2024 04:59 PM Reporting Lab: [facility] #1 [facility] [address] Performing Lab: [facility] #1 [facility] [address] GLUCOSE,BLOOD- poct (STL) 136 mg/dL H Aug 15, 2024 04:16 PM [facility] GLUCOSE,BLOOD-poct (STL) Specimen Type: BLOOD Comment: Test Performed by: [id number] Meter #: [id number] Ordering Provider: SILVIA REDDY Report Released Date/Time: Aug 15, 2024 04:59 PM Reporting Lab: [facility] #1 [place] [address] Performing Lab: [facility] #1 [facility] [address] GLUCOSE,BLOOD- poct (STL) 194 mg/dL H -Aug 15, 2024 11:39 AM [facility] GLUCOSE,BLOOD-poct (STL) Specimen Type: BLOOD Comment: Test Performed by: [id number] Meter #: [id number] Ordering Provider: SILVIA REDDY Report Released Date/Time: Aug 15, 2024 12:00 PM Reporting Lab: [facility] #1 [place] [address] Performing Lab: [facility] #1 [place] [address] GLUCOSE,BLOOD- poct (STL) 127 mg/dL H -Aug 15, 2024 05:07 AM [facility] GLUCOSE,BLOOD-poct (STL) Specimen Type: BLOOD Comment: Test Performed by: [id number] Meter #: [id number] Ordering Provider: SILVIA REDDY Report Released Date/Time: Aug 15, 2024 06:14 AM Reporting Lab: [facility] #1 [place] [address] Performing Lab: [facility] #1 [place] [address] GLUCOSE,BLOOD- poct (STL) 151 mg/dL H -Aug 14, 2024 04:22 PM [facility] GLUCOSE,BLOOD-poct (STL) Specimen Type: BLOOD Comment: Test Performed by: [id number] Meter #: [id number] Ordering Provider: SILVIA REDDY Report Released Date/Time: Aug 14, 2024 04:52 PM Reporting Lab: [facility] #1 [place] [phone] Performing Lab: [facility]1 [facility] [address] GLUCOSE,BLOOD- poct (STL) 129 mg/dL H 72-99 Aug 14, 2024 11:21 AM [facility] GLUCOSE,BLOOD-poct (STL) Specimen Type: BLOOD Comment: Test Performed by: [id number] Meter #: [id number] Ordering Provider: SILVIA REDDY Report Released Date/Time: Aug 14, 2024 11:37 AM Reporting Lab: [facility]1 [facility] [address] Performing Lab: [facility] #1 [facility] [address] GLUCOSE,BLOOD- poct (STL) 135 mg/dL H 72-Aug 14, 2024 06:59 AM [facility] QUANTIFERON-TB,4 TUBE Specimen Type: BLOOD Comment: normalcy [...] For additional information, please refer to http://education. [employer]/faq/RQD279 (This link is being provided for information/ educational purposes only.) Test Performed by [place], [facility], [address] [place] [address] Tommie Garcia M.D., Ph.D., Director of Laboratories , [facility] [id number] Ordering Provider: SILVIA REDDY Report Released Date/Time: Aug 11, 2024 03:58 PM Reporting Lab: [facility] [address] [facility] [place] [address] Performing Lab: [facility] [id number] [place] [address] .NIL - QUANTIFERON 0.04 [IU]/mL .MITOGEN-NIL 0.39 [IU]/mL .QUANTIFERON INDETERMINATE NEGATIVE .TB1-NIL <0.00 [IU]/mL .TB2-NIL <0.00 [IU]/mL Aug 14, 2024 06:59 AM [facility] COMPREHENSIVE METABOLIC PANEL Specimen Type: PLASMA Comment: No hemolysis noted. Ordering Provider: SILVIA REDDY Report Released Date/Time: Aug 11, 2024 03:58 PM Reporting Lab: [facility]1 [facility] [address] Performing Lab: [facility]1 [facility] [address] CREATININE 0.75 mg/dL 0.70-1.30 UREA NITROGEN 13.6 [...] 2024 06:59 AM [facility] CBC Specimen Type: BLOOD No comment entered. Ordering Provider: SILVIA REDDY Report Released Date/Time: Aug 11, 2024 03:58 PM Reporting Lab: [facility]1 [facility] [address] Performing Lab: [facility] #1 [place] [phone] WBC 4.1 10*3/uL 3.6-11.2 RBC 3.20 10*6/uL [...] 0.00-0.20 Aug 14, 2024 06:59 AM [facility] MAGNESIUM Specimen Type: PLASMA Comment: No hemolysis noted. Ordering Provider: SILVIA REDDY Report Released Date/Time: Aug 11, 2024 03:58 PM Reporting Lab: [facility]1 [facility] [address] Performing Lab: [facility] #1 [place] [phone] MAGNESIUM 1.9 mg/dL 1.6-2.6 Aug 14, 2024 06:59 AM [facility] B12 Specimen Type: SERUM No comment entered. Ordering Provider: SILVIA REDDY Report Released Date/Time: Aug 11, 2024 03:58 PM Reporting Lab: [facility]1 [facility] [address] Performing Lab: [facility] #1 [place] [phone] B12 757 pg/mL 213-816 Aug 14, 2024 06:59 AM [facility] FOLATE ([facility]) Specimen Type: SERUM No comment entered. Ordering Provider: SILVIA REDDY Report Released Date/Time: Aug 11, 2024 03:58 PM Reporting Lab: [facility] DIV[facility]1 [facility] [phone] Performing Lab: [facility] #1 [facility] [address] FOLATE ([facility] 6.8 ng/mL L 7-20 Aug 14, 2024 06:59 AM [facility] VITAMIN D, 25-HYDROXY Specimen Type: SERUM No comment entered. Ordering Provider: SILVIA REDDY Report Released Date/Time: Aug 11, 2024 03:58 PM Reporting Lab: [facility] DIV[facility]1 [facility] [phone] Performing Lab: [facility] #1 [facility] [address] VITAMIN D, 25-HYDROXY 8.9 ng/mL L 30-96 Aug 14, 2024 05:08 AM [facility] GLUCOSE,BLOOD-poct (L) Specimen Type: BLOOD Comment: Test Performed by: [id number] Meter #: [id number] Ordering Provider: SILVIA REDDY Report Released Date/Time: Aug 14, 2024 05:52 AM Reporting Lab: [facility] DIV[facility]1 [facility] [phone] Performing Lab: [facility] #1 [facility] [address] GLUCOSE,BLOOD- poct (STL) 135 mg/dL H 72-99 Aug 13, 2024 04:27 PM [facility] GLUCOSE,BLOOD-poct (STL) Specimen Type: BLOOD Comment: Test Performed by: [id number] Meter #: [id number] Ordering Provider: SILVIA REDDY Report Released Date/Time: Aug 13, 2024 04:41 PM Reporting Lab: [facility] #1 [facility] [address] Performing Lab: [facility] [address] GLUCOSE,BLOOD- poct (STL) 181 mg/dL H -Aug 13, 2024 11:33 AM [facility] HEALTHCARE GLUCOSE,BLOOD-poct (STL) Specimen Type: BLOOD Comment: Test Performed by: [id number] Meter #: [id number] Ordering Provider: SILVIA REDDY Report Released Date/Time: Aug 13, 2024 03:55 PM Reporting Lab: [facility] [address] Performing Lab: [facility] [place] [address] GLUCOSE,BLOOD- poct (STL) 140 mg/dL H Aug 13, 2024 05:54 AM [facility] GLUCOSE,BLOOD-poct (STL) Specimen Type: BLOOD Comment: Test Performed by: [id number] Meter #: [id number] Ordering Provider: SILVIA REDDY Report Released Date/Time: Aug 13, 2024 06:20 AM Reporting Lab: [facility] [address] Performing Lab: [facility] #1 [facility] [address] GLUCOSE,BLOOD- poct (STL) 112 mg/dL H Aug 12, 2024 04:35 PM [facility] GLUCOSE,BLOOD-poct (STL) Specimen Type: BLOOD Comment: Test Performed by: [id number] Meter #: [id number] Ordering Provider: SILVIA REDDY Report Released Date/Time: Aug 12, 2024 04:47 PM Reporting Lab: [facility]1 [facility] [address] Performing Lab: [facility] #1 [facility] [address] GLUCOSE,BLOOD- poct (STL) 128 mg/dL H 72-99 Aug 12, 2024 11:26 AM [facility] GLUCOSE,BLOOD-poct (STL) Specimen Type: BLOOD Comment: Test Performed by: [id number] Meter #: [id number] Ordering Provider: SILVIA REDDY Report Released Date/Time: Aug 12, 2024 11:45 AM Reporting Lab: [facility] [address] Performing Lab: [facility] #1 [facility] [address] GLUCOSE,BLOOD- poct (STL) 188 mg/dL H -Aug 12, 2024 06:13 AM [facility] GLUCOSE,BLOOD-poct (STL) Specimen Type: BLOOD Comment: Test Performed by: [id number] Meter #: [id number] Ordering Provider: SILVIA REDDY Report Released Date/Time: Aug 12, 2024 06:25 AM Reporting Lab: [facility] [address] Performing Lab: [facility] #1 [facility] [address] GLUCOSE,BLOOD- poct (STL) 116 mg/dL H 72-99 Aug 11, 2024 04:10 PM [facility] GLUCOSE,BLOOD-poct (STL) Specimen Type: BLOOD Comment: Test Performed by: [id number] Meter #: [id number] Ordering Provider: SILVIA REDDY Report Released Date/Time: Aug 11, 2024 04:27 PM Reporting Lab: [facility]1 [place] [address] Performing Lab: [facility] [address] GLUCOSE,BLOOD- poct (STL) 184 mg/dL H 72-99 Aug 11, 2024 01:44 PM [facility] MRSA SURVL NARES DNA Specimen Type: NARES [...] 11, 2024 02:03 PM Reporting Lab: [address] [address] Performing Lab: [address] [address] MRSA SURVL NARES DNA Negative Negative Vital Signs: All taken on the encounter date This section contains inpatient and outpatient Vital Signs collected on the date of the Encounter. Date/Time Temperature Pulse Blood Pressure Respiratory Rate SP02 Pain Height Weight Body Mass Index Source Aug 19, 2024 07:31 PM 98.1 89 174/79 18 97 [facility] Aug 19, 2024 06:27 PM 0 [facility] Aug 19, 2024 10:00 AM 97.8 72 130/74 18 96 [facility] Aug 19, 2024 09:16 AM 0 [facility] Aug 19, 2024 05:26 AM 213.8 31 [facility] Advance Directives: All [...] 2017 ADVANCE DIRECTIVE DISCUSSION ERICK BARDALES [facility]
--- OUTSIDE RECORDS SUMMARY | 2024-11-17 04:17 | XMS_ITS | Encounter Summary ---
Author Name [facility] [place] Organization [facility] [place] Address [address] [place] [address] Care Team Providers Care Supervisor [employer] Name Role Phone MANUEL BAIRD Primary Care [...] PART A Apr 08, 2017 PART A [id number] ASLHEY WALKER PATIENT Selected Encounter This section includes the information on record at [place] for the Encounter. Date/Time Encounter Type Encounter Description Reason Pro vider Source Aug 18, 2024 01:30 PM Inpatient Visit OCCUPATIONAL THERAPY IHE Encounter [...] 20 appointments. The data comes from all [facility]. Appointment Date/Time Appointment Type Appointme nt Facility Name Aug 24, 2024 10:00 AM AMBULATORY - MEDICINE [facility] Aug 24, 2024 10:30 AM AMBULATORY - MEDICINE [facility] Aug 30, 2024 09:30 AM AMBULATORY MEDICINE [facility] Aug 31, 2024 01:00 PM AMBULATORY - SURGERY [facility] Sep 21, 2024 01:30 PM AMBULATORY - MEDICINE [facility] Sep 22, 2024 11:00 AM AMBULATORY - MEDICINE [facility] Sep 29, 2024 12:30 PM AMBULATORY - MEDICINE [facility] Oct 02, 2024 09:30 AM AMBULATORY - MEDICINE [facility] Nov 20, 2024 10:30 AM AMBULATORY - SURGERY . [facility] Nov 21, 2024 10:00 AM AMBULATORY - NONE [facility] Dec 11, 2024 10:30 AM AMBULATORY - MEDICINE [facility] Active, Pending, and Scheduled Orders This section includes a listing of several types of active, pending, and scheduled orders, including clinic medications orders, diagnostic test orders, procedure orders and consult orders; where the start date of the order is 45 days before the date of the Encounter or 45 days after the date of theEncounter. The data comes from all [facility]. Test Date/Time Test Type Test Details Facility Name Aug 02, 2024 12:00 AM Laboratory - Chemistry Order CBC BLOOD STAT SP [facility] Aug 02, 2024 12:00 AM Laboratory - Chemistry Order COMPREHENSIVE METABOLIC PANEL GREEN LI/HEP BLD/PLAS PLASMA SP [facility] Aug 17, 2024 03:47 PM Consult Order [facility] Cons Bedside [facility] Lab Results: +/- 30 days of [...] Lab: [facility] [address] Performing Lab: [facility] [place] [phone] MAGNESIUM 1.8 mg/dL 1.6-2.6 Aug 23, 2024 08:21 AM [facility] CBC Specimen Type: BLOOD No comment entered. Ordering Provider: SILVIA REDDY Report Released Date/Time: Aug 22, 2024 11:19 AM Reporting Lab: [facility] [address] Performing Lab: [facility] [address] WBC 4.0 10*3/uL 3.6-11.2 RBC 3.65 10*6/uL [...] Specimen Type: BLOOD Comment: Test Performed by: [id number] Meter #: [id number] Ordering Provider: SILVIA REDDY Report Released Date/Time: Aug 23, 2024 05:23 AM Reporting Lab: [facility] [address] Performing Lab: [facility] [address] GLUCOSE,BLOOD- poct (STL) 99 mg/dL 72-99 Aug 23, 2024 02:45 AM [facility] OCCULT BLOOD FIT X1 SCREEN Specimen Type: FECES No comment entered. Ordering Provider: SILVIA ERDDY Report Released Date/Time: Aug 22, 2024 11:23 AM Reporting Lab: [address] [address] Performing Lab: [facility] [address] [place] [phone] OCCULT BLOOD (FIT) #1 OF 1 Negative Negative Aug 22, 2024 07:30 PM [facility] OCCULT BLOOD FIT X1 SCREEN Specimen Type: FECES No comment entered. Ordering Provider: SILVIA REDDY Report Released Date/Time: Aug 22, 2024 11:23 AM Reporting Lab: [facility] [address] [place] [phone] Performing Lab: [facility] [address] [place] [phone] OCCULT BLOOD (FIT) #1 OF 1 Negative Negative Aug 22, 2024 06:15 PM [facility] OCCULT BLOOD FIT X1 SCREEN Specimen Type: FECES No comment entered. Ordering Provider: SILVIA REDDY Report Released Date/Time: Aug 22, 2024 11:23 AM Reporting Lab: [address] [address] Performing Lab: [facility] [address] [facility] [address] OCCULT BLOOD (FIT) #1 OF 1 Negative Negative Aug 22, 2024 04:24 PM [facility] GLUCOSE,BLOOD-poct (STL) Specimen Type: BLOOD Comment: Test Performed by: [id number] Meter #: [id number] Ordering Provider: SILVIA REDDY Report Released Date/Time: Aug 22, 2024 04:36 PM Reporting Lab: [facility] [address] Performing Lab: [facility]1 [facility] [address] GLUCOSE,BLOOD- poct (STL) 176 mg/dL H 72-Aug 22, 2024 04:23 PM [facility] GLUCOSE,BLOOD-poct (STL) Specimen Type: BLOOD Comment: Test Performed by: [id number] Meter #: [id number] Ordering Provider: SILVIA REDDY Report Released Date/Time: Aug 22, 2024 04:36 PM Reporting Lab: [facility] [address] Performing Lab: [facility] [address] GLUCOSE,BLOOD- poct (STL) 221 mg/dL H 72-99 Aug 22, 2024 11:15 AM [facility] GLUCOSE,BLOOD-poct (STL) Specimen Type: BLOOD Comment: Test Performed by: [id number] Meter #: [id number] Ordering Provider: SILVIA REDDY Report Released Date/Time: Aug 22, 2024 11:27 AM Reporting Lab: [facility] [address] Performing Lab: [facility] [address] GLUCOSE,BLOOD- poct (STL) 140 mg/dL H 72-99 Aug 22, 2024 08:03 AM [facility] FERRITIN Specimen Type: SERUM No comment entered. Ordering Provider: JUDIT PERKINS Report Released Date/Time: Aug 18, 2024 11:01 AM Reporting Lab: [facility] [address] [facility] [address] Performing Lab: [facility] [address] [facility] [address] FERRITIN 79.50 ng/mL 22-275 Aug 22, 2024 08:03 AM [facility] IRON/TIBC PROFILE Specimen Type: SERUM No comment entered. Ordering Provider: JUDIT PERKINS Report Released Date/Time: Aug 18, 2024 11:01 AM Reporting Lab: [facility] [address] [facility] [address] Performing Lab: [address] [address] TIBC 283 ug/dL 250-450 TRANSFERRIN 226 mg/dL 163-344 IRON SATURATION 7 L 20-50 IRON 19 ug/dL L 65-175 Aug 22, 2024 08:03 AM [facility] B12 Specimen Type: SERUM No comment entered. Ordering Provider: JUDIT PERKINS Report Released Date/Time: Aug 18, 2024 11:01 AM Reporting Lab: [facility] [address] Performing Lab: [facility] [facility] [address] B12 631 pg/mL 213-816 Aug 22, 2024 08:03 AM [facility] COMPREHENSIVE METABOLIC PANEL Specimen Type: PLASMA Comment: No hemolysis noted. Ordering Provider: SILVIA REDDY Report Released Date/Time: Aug 17, 2024 01:18 PM Reporting Lab: [facility] [address] [facility] [address] Performing Lab: [place] [address] [facility] [address] CREATININE 0.80 mg/dL 0.7-1.3 UREA NITROGEN 9.7 [...] 08:03 AM [facility] CBC Specimen Type: BLOOD No comment entered. Ordering Provider: SILVIA REDDY Report Released Date/Time: Aug 17, 2024 01:18 PM Reporting Lab: [facility] [address] Performing Lab: [facility] [facility] [address] WBC 3.5 10*3/uL L 3.6-11.2 RBC 3.23 [...] Specimen Type: BLOOD Comment: Test Performed by: [id number] Meter #: [id number] Ordering Provider: SILVIA REDDY Report Released Date/Time: Aug 22, 2024 06:17 AM Reporting Lab: [facility] [facility] [address] Performing Lab: [facility]1 [facility] [address] GLUCOSE,BLOOD- poct (STL) 170 mg/dL H 72-Aug 21, 2024 04:32 PM [facility] GLUCOSE,BLOOD-poct (STL) Specimen Type: BLOOD Comment: Test Performed by: [id number] Meter #: [id number] Ordering Provider: SILVIA REDDY Report Released Date/Time: Aug 21, 2024 04:49 PM Reporting Lab: [facility] [address] Performing Lab: [facility] #[address] [facility] [address] GLUCOSE,BLOOD- poct (STL) 169 mg/dL H -Aug 21, 2024 11:53 AM [facility] GLUCOSE,BLOOD-poct (STL) Specimen Type: BLOOD Comment: Test Performed by: [id number] Meter #: [id number] Ordering Provider: SILVIA REDDY Report Released Date/Time: Aug 21, 2024 12:11 PM Reporting Lab: [facility] [facility] [address] Performing Lab: [facility] [facility] [address] GLUCOSE,BLOOD- poct (STL) 149 mg/dL H 72-99 Aug 21, 2024 05:10 AM [facility] GLUCOSE,BLOOD-poct (STL) Specimen Type: BLOOD Comment: Test Performed by: [id number] Meter #: [id number] Ordering Provider: SILVIA REDDY Report Released Date/Time: Aug 21, 2024 05:27 AM Reporting Lab: [facility] [address] [place] [address] Performing Lab: [facility] [address] [place] [address] GLUCOSE,BLOOD- poct (STL) 118 mg/dL H 72-Aug 20, 2024 04:38 PM [facility] GLUCOSE,BLOOD-poct (STL) Specimen Type: BLOOD Comment: Test Performed by: [id number] Meter #: [id number] Ordering Provider: SILVIA REDDY Report Released Date/Time: Aug 21, 2024 01:55 AM Reporting Lab: [facility] [address] [place] [address] Performing Lab: [facility] [address] [place] [address] GLUCOSE,BLOOD- poct (STL) 169 mg/dL H -Aug 20, 2024 04:36 PM [facility] GLUCOSE,BLOOD-poct (STL) Specimen Type: BLOOD Comment: Test Performed by: [id number] Meter #: [id number] Ordering Provider: SILVIA REDDY Report Released Date/Time: Aug 21, 2024 01:55 AM Reporting Lab: [facility] [address] [place] [address] Performing Lab: [facility] [address] [place] [address] GLUCOSE,BLOOD- poct (STL) 395 mg/dL H 72-Aug 20, 2024 11:45 AM [facility] GLUCOSE,BLOOD-poct (STL) Specimen Type: BLOOD Comment: Test Performed by: [id number] Meter #: [id number] Ordering Provider: SILVIA REDDY Report Released Date/Time: Aug 20, 2024 11:56 AM Reporting Lab: [facility] [address] [place] [address] Performing Lab: [facility] [facility] [address] GLUCOSE,BLOOD- poct (STL) 169 mg/dL H Aug 20, 2024 05:06 AM [facility] GLUCOSE,BLOOD-poct (STL) Specimen Type: BLOOD Comment: Test Performed by: [id number] Meter #: [id number] Ordering Provider: SILVIA REDDY Report Released Date/Time: Aug 20, 2024 06:05 AM Reporting Lab: [facility] [facility] [address] Performing Lab: [facility] #[address] [facility] [address] GLUCOSE,BLOOD- poct (STL) 115 mg/dL H Aug 19, 2024 04:23 PM [facility] GLUCOSE,BLOOD-poct (STL) Specimen Type: BLOOD Comment: Test Performed by: [id number] Meter #: [id number] Ordering Provider: SILVIA REDDY Report Released Date/Time: Aug 19, 2024 05:54 PM Reporting Lab: [facility] [facility] [address] Performing Lab: [facility] [facility] [address] GLUCOSE,BLOOD- poct (STL) 137 mg/dL H Aug 19, 2024 11:28 AM [facility] GLUCOSE,BLOOD-poct (STL) Specimen Type: BLOOD Comment: Test Performed by: [id number] Meter #: [id number] Ordering Provider: SILVIA REDDY Report Released Date/Time: Aug 19, 2024 11:51 AM Reporting Lab: [facility]1 [facility] [address] Performing Lab: [facility] #[address] [facility] [address] GLUCOSE,BLOOD- poct (STL) 190 mg/dL H Aug 19, 2024 05:21 AM [facility] GLUCOSE,BLOOD-poct (STL) Specimen Type: BLOOD Comment: Test Performed by: [id number] Meter #: [id number] Ordering Provider: SILVIA REDDY Report Released Date/Time: Aug 19, 2024 05:56 AM Reporting Lab: [facility]1 [facility] [address] Performing Lab: [facility] #1 [facility] [address] GLUCOSE,BLOOD- poct (STL) 130 mg/dL H Aug 18, 2024 04:49 PM [facility] GLUCOSE,BLOOD-poct (STL) Specimen Type: BLOOD Comment: Test Performed by: [id number] Meter #: [id number] Ordering Provider: SILVIA REDDY Report Released Date/Time: Aug 18, 2024 05:01 PM Reporting Lab: [facility] [address] Performing Lab: [facility] #[address] [facility] [address] GLUCOSE,BLOOD- poct (STL) 129 mg/dL H Aug 18, 2024 11:23 AM [facility] GLUCOSE,BLOOD-poct (STL) Specimen Type: BLOOD Comment: Test Performed by: [id number] Meter #: [id number] Ordering Provider: SILVIA REDDY Report Released Date/Time: Aug 18, 2024 11:41 AM Reporting Lab: [facility] [facility] [address] Performing Lab: [facility] #[address] [facility] [address] GLUCOSE,BLOOD- poct (STL) 180 mg/dL H Aug 18, 2024 05:08 AM [facility] GLUCOSE,BLOOD-poct (STL) Specimen Type: BLOOD Comment: Test Performed by: [id number] Meter #: [id number] Ordering Provider: SILVIA REDDY Report Released Date/Time: Aug 18, 2024 05:31 AM Reporting Lab: [facility] [address] [place] [address] Performing Lab: [facility] [address] [place] [address] GLUCOSE,BLOOD- poct (STL) 127 mg/dL H -Aug 17, 2024 07:32 PM [facility] GLUCOSE,BLOOD-poct (STL) Specimen Type: BLOOD Comment: Test Performed by: [id number] Meter #: [id number] Ordering Provider: SILVIA REDDY Report Released Date/Time: Aug 17, 2024 07:59 PM Reporting Lab: [facility] [address] [place] [address] Performing Lab: [facility] [address] [place] [address] GLUCOSE,BLOOD- poct (STL) 154 mg/dL H Aug 17, 2024 04:24 PM [facility] GLUCOSE,BLOOD-poct (STL) Specimen Type: BLOOD Comment: Test Performed by: [id number] Meter #: [id number] Ordering Provider: SILVIA REDDY Report Released Date/Time: Aug 17, 2024 04:35 PM Reporting Lab: [facility] [address] [place] [address] Performing Lab: [facility] [address] [place] [address] GLUCOSE,BLOOD- poct (STL) 178 mg/dL H -Aug 17, 2024 05:09 AM [facility] GLUCOSE,BLOOD-poct (STL) Specimen Type: BLOOD Comment: Test Performed by: [id number] Meter #: [id number] Ordering Provider: SILVIA REDDY Report Released Date/Time: Aug 17, 2024 05:54 AM Reporting Lab: [facility] [address] [place] [address] Performing Lab: [facility] [address] GLUCOSE,BLOOD- poct (STL) 124 mg/dL H Aug 16, 2024 07:40 PM [facility] GLUCOSE,BLOOD-poct (STL) Specimen Type: BLOOD Comment: Test Performed by: [id number] Meter #: [id number] Ordering Provider: SILVIA REDDY Report Released Date/Time: Aug 16, 2024 08:28 PM Reporting Lab: [facility] [address] Performing Lab: [facility] [address] GLUCOSE,BLOOD- poct (STL) 144 mg/dL H Aug 16, 2024 04:19 PM [facility] GLUCOSE,BLOOD-poct (STL) Specimen Type: BLOOD Comment: Test Performed by: [id number] Meter #: [id number] Ordering Provider: SILVIA REDDY Report Released Date/Time: Aug 16, 2024 04:45 PM Reporting Lab: [facility] [facility] [address] Performing Lab: [facility] [address] GLUCOSE,BLOOD- poct (STL) 138 mg/dL H Aug 16, 2024 11:52 AM [facility] GLUCOSE,BLOOD-poct (STL) Specimen Type: BLOOD Comment: Test Performed by: [id number] Meter #: [id number] Ordering Provider: SILVIA REDDY Report Released Date/Time: Aug 16, 2024 12:04 PM Reporting Lab: [facility] [facility] [address] Performing Lab: [facility] [address] GLUCOSE,BLOOD- poct (STL) 135 mg/dL H Aug 16, 2024 05:24 AM [facility] GLUCOSE,BLOOD-poct (STL) Specimen Type: BLOOD Comment: Test Performed by: [id number] Meter #: [id number] Ordering Provider: SILVIA REDDY Report Released Date/Time: Aug 16, 2024 05:38 AM Reporting Lab: [facility] [address] Performing Lab: [facility] [address] GLUCOSE,BLOOD- poct (STL) 151 mg/dL H Aug 15, 2024 07:31 PM [facility] GLUCOSE,BLOOD-poct (STL) Specimen Type: BLOOD Comment: Test Performed by: [id number] Meter #: [id number] Ordering Provider: SILVIA REDDY Report Released Date/Time: Aug 15, 2024 08:07 PM Reporting Lab: [facility] [address] Performing Lab: [facility] [address] GLUCOSE,BLOOD- poct (STL) 173 mg/dL H Aug 15, 2024 04:18 PM [facility] GLUCOSE,BLOOD-poct (STL) Specimen Type: BLOOD Comment: Test Performed by: [id number] Meter #: [id number] Ordering Provider: SILVIA REDDY Report Released Date/Time: Aug 15, 2024 04:59 PM Reporting Lab: [facility] [address] Performing Lab: [facility] [address] GLUCOSE,BLOOD- poct (STL) 136 mg/dL H Aug 15, 2024 04:16 PM [facility] GLUCOSE,BLOOD-poct (STL) Specimen Type: BLOOD Comment: Test Performed by: [id number] Meter #: [id number] Ordering Provider: SILVIA REDDY Report Released Date/Time: Aug 15, 2024 04:59 PM Reporting Lab: [facility] [place] [address] Performing Lab: [facility] [address] GLUCOSE,BLOOD- poct (STL) 194 mg/dL H -Aug 15, 2024 11:39 AM [facility] GLUCOSE,BLOOD-poct (STL) Specimen Type: BLOOD Comment: Test Performed by: [id number] Meter #: [id number] Ordering Provider: SILVIA REDDY Report Released Date/Time: Aug 15, 2024 12:00 PM Reporting Lab: [facility] [address] Performing Lab: [facility] [place] [address] GLUCOSE,BLOOD- poct (STL) 127 mg/dL H -Aug 15, 2024 05:07 AM [facility] GLUCOSE,BLOOD-poct (STL) Specimen Type: BLOOD Comment: Test Performed by: [id number] Meter #: [id number] Ordering Provider: SILVIA REDDY Report Released Date/Time: Aug 15, 2024 06:14 AM Reporting Lab: [facility] [place] [address] Performing Lab: [facility] [place] [address] GLUCOSE,BLOOD- poct (STL) 151 mg/dL H -Aug 14, 2024 04:22 PM [facility] GLUCOSE,BLOOD-poct (STL) Specimen Type: BLOOD Comment: Test Performed by: [id number] Meter #: [id number] Ordering Provider: SILVIA REDDY Report Released Date/Time: Aug 14, 2024 04:52 PM Reporting Lab: [facility] [place] [address] Performing Lab: [facility] [address] GLUCOSE,BLOOD- poct (STL) 129 mg/dL H 72-99 Aug 14, 2024 11:21 AM [facility] GLUCOSE,BLOOD-poct (STL) Specimen Type: BLOOD Comment: Test Performed by: [id number] Meter #: [id number] Ordering Provider: SILVIA REDDY Report Released Date/Time: Aug 14, 2024 11:37 AM Reporting Lab: [facility] [address] Performing Lab: [facility] [address] GLUCOSE,BLOOD- poct (STL) 135 mg/dL H 72-Aug [...] For additional information, please refer to http://education. Abril. Intern [place]/faq/ASR300 (This link is being provided for information/ educational purposes only.) Test Performed by [employer], [employer] [facility], [address] [place] [id number] Tommie Garcia M.D., Ph.D., Director of Laboratories , [facility] [id number] Ordering Provider: SILVIA REDDY Report Released Date/Time: Aug 11, 2024 03:58 PM Reporting Lab: [facility] [address] [facility] [address] Performing Lab: [facility] [id number] [place] [id number] .NIL - QUANTIFERON 0.04 [IU]/mL .MITOGEN-NIL 0.39 [IU]/mL .QUANTIFERON INDETERMINATE NEGATIVE .TB1-NIL <0.00 [IU]/mL .TB2-NIL <0.00 [IU]/mL Aug 14, 2024 06:59 AM [facility] MAGNESIUM Specimen Type: PLASMA Comment: No hemolysis noted. Ordering Provider: SILVIA REDDY Report Released Date/Time: Aug 11, 2024 03:58 PM Reporting Lab: [facility] [address] Performing Lab: [facility] [address] MAGNESIUM 1.9 mg/dL 1.6-2.6 Aug 14, 2024 06:59 AM [facility] FOLATE (STL-MA) Specimen Type: SERUM No comment entered. Ordering Provider: SILVIA REDDY Report Released Date/Time: Aug 11, 2024 03:58 PM Reporting Lab: [facility] [address] Performing Lab: [facility] [address] FOLATE (STL-MA) 6.8 ng/mL L 7-20 Aug 14, 2024 06:59 AM [facility] VITAMIN D, 25-HYDROXY Specimen Type: SERUM No comment entered. Ordering Provider: SILVIA REDDY Report Released Date/Time: Aug 11, 2024 03:58 PM Reporting Lab: [facility] [phone] Performing Lab: [facility] [address] VITAMIN D, 25-HYDROXY 8.9 ng/mL L 30-96 Aug 14, 2024 06:59 AM [facility] B12 Specimen Type: SERUM No comment entered. Ordering Provider: SILVIA REDDY Report Released Date/Time: Aug 11, 2024 03:58 PM Reporting Lab: [facility] [address] Performing Lab: [facility] [address] B12 757 pg/mL 213-816 Aug 14, 2024 06:59 AM [facility] COMPREHENSIVE METABOLIC PANEL Specimen Type: PLASMA Comment: No hemolysis noted. Ordering Provider: SILVIA REDDY Report Released Date/Time: Aug 11, 2024 03:58 PM Reporting Lab: [facility] [address] Performing Lab: [facility] [address] CREATININE 0.75 mg/dL 0.70-1.30 UREA NITROGEN 13.6 [...] Lab: [facility] [facility] [address] Performing Lab: [facility] [address] WBC 4.1 10*3/uL 3.6-11.2 RBC 3.20 10*6/uL [...] Specimen Type: BLOOD Comment: Test Performed by: [id number] Meter #: [id number] Ordering Provider: SILVIA REDDY Report Released Date/Time: Aug 14, 2024 05:52 AM Reporting Lab: [facility] [address] Performing Lab: [facility] [address] GLUCOSE,BLOOD- poct (STL) 135 mg/dL H 72-99 Aug 13, 2024 04:27 PM [facility] GLUCOSE,BLOOD-poct (STL) Specimen Type: BLOOD Comment: Test Performed by: [id number] Meter #: [id number] Ordering Provider: SILVIA REDDY Report Released Date/Time: Aug 13, 2024 04:41 PM Reporting Lab: [facility] [address] Performing Lab: [facility] [address] GLUCOSE,BLOOD- poct (STL) 181 mg/dL H -Aug 13, 2024 11:33 AM [facility] GLUCOSE,BLOOD-poct (STL) Specimen Type: BLOOD Comment: Test Performed by: [id number] Meter #: [id number] Ordering Provider: SILVIA REDDY Report Released Date/Time: Aug 13, 2024 03:55 PM Reporting Lab: [facility] [place] [address] Performing Lab: [facility] [place] [address] GLUCOSE,BLOOD- poct (STL) 140 mg/dL H Aug 13, 2024 05:54 AM [facility] GLUCOSE,BLOOD-poct (STL) Specimen Type: BLOOD Comment: Test Performed by: [id number] Meter #: [id number] Ordering Provider: SILVIA REDDY Report Released Date/Time: Aug 13, 2024 06:20 AM Reporting Lab: [facility] [place] [address] Performing Lab: [facility] [address] GLUCOSE,BLOOD- poct (STL) 112 mg/dL H Aug 12, 2024 04:35 PM [facility] GLUCOSE,BLOOD-poct (STL) Specimen Type: BLOOD Comment: Test Performed by: [id number] Meter #: [id number] Ordering Provider: SILVIA REDDY Report Released Date/Time: Aug 12, 2024 04:47 PM Reporting Lab: [facility] [address] Performing Lab: [facility] [address] GLUCOSE,BLOOD- poct (STL) 128 mg/dL H -Aug 12, 2024 11:26 AM [facility] GLUCOSE,BLOOD-poct (STL) Specimen Type: BLOOD Comment: Test Performed by: [id number] Meter #: [id number] Ordering Provider: SILVIA REDDY Report Released Date/Time: Aug 12, 2024 11:45 AM Reporting Lab: [facility] [address] Performing Lab: [facility] [place] [address] GLUCOSE,BLOOD- poct (STL) 188 mg/dL H Aug 12, 2024 06:13 AM [facility] GLUCOSE,BLOOD-poct (STL) Specimen Type: BLOOD Comment: Test Performed by: [id number] Meter #: [id number] Ordering Provider: SILVIA REDDY Report Released Date/Time: Aug 12, 2024 06:25 AM Reporting Lab: [facility] [address] Performing Lab: [facility] [address] GLUCOSE,BLOOD- poct (STL) 116 mg/dL H Aug 11, 2024 04:10 PM [facility] GLUCOSE,BLOOD-poct (STL) Specimen Type: BLOOD Comment: Test Performed by: [id number] Meter #: [id number] Ordering Provider: SILVIA REDDY Report Released Date/Time: Aug 11, 2024 04:27 PM Reporting Lab: [facility] [address] Performing Lab: [facility] [address] GLUCOSE,BLOOD- poct (STL) 184 mg/dL H 72-99 [...] 11, 2024 02:03 PM Reporting Lab: [address] [address] Performing Lab: [address] [address] MRSA SURVL NARES DNA Negative Negative Jul 20, 2024 11:18 AM [facility] APTT Specimen Type: PLASMA No comment entered. Ordering Provider: MANUEL BAIRD Report Released Date/Time: Jul 19, 2024 04:00 PM Reporting Lab: [facility] [address] [place] [address] Performing Lab: [address] [address] APTT 32.1 s 26.7-39.9 Jul 20, 2024 11:18 AM [facility] PT/INR NEW ([facility]) Specimen Type: PLASMA No comment entered. Ordering Provider: MANUEL BAIRD Report Released Date/Time: Jul 19, 2024 04:00 PM Reporting Lab: [address] [address] Performing Lab: [address] [address] PROTIME 14.4 s H 9.4-12.5 INR VALUE 1.3 {INR} Jul 20, 2024 11:18 AM [facility] CBC Specimen Type: BLOOD No comment entered. Ordering Provider: MANUEL BAIRD Report Released Date/Time: Jul 19, 2024 04:00 PM Reporting Lab: [facility] [address] [facility] [address] Performing Lab: [facility] [address] [facility] [address] WBC 4.7 10*3/uL 3.6-11.2 RBC 4.86 10*6/uL [...] 10:34 AM QUIT TOBACCO >7 YEARS AGO [facility] Tobacco Use History This section includes a history of the smoking, or tobacco-related health factors, that were collected on or before the date of the Encounter. The data comes from the [place] facility where the Encounter took place. Date/Time Smoking Status/Tobacco Use Comment F acility Sep 30, 2015 10:12 AM QUIT TOBACCO >7 YEARS AGO [facility] Oct 29, 2014 10:23 AM QUIT TOBACCO >7 YEARS AGO [facility] Dec 27, 2013 01:27 PM QUIT TOBACCO >7 YEARS AGO [facility] Feb 24, 2013 02:01 PM LIFETIME NON-USER OF TOBACCO [facility] Feb 11, 2009 10:09 AM QUIT TOBACCO >7 YEARS AGO [facility] Oct 06, 2006 09:30 AM CURRENT NON-TOBACC O USER-HX OF USE [facility] Oct 06, 2006 09:30 AM TOBACCO TERMINATION STAGE [facility] Advance Directives: All historical and current [...] DIRECTIVE DISCUSSION ERICK BARDALES [facility] Encounter Notes: All associated encounter notes This section contains the clinical notes associated to the Encounter. 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 [place] and nurse state he is leaving for MD appt. Will reattempt at next scheduled opportunity. [place] was issued all ordered equipment this date with items left in room. [place] was present and aware of delivery. /shen/ STEVEN JEFFERSON Occupational Therapist Signed: 08/18/2024 16:12 STEVEN JEFFERSON [facility]
--- OUTSIDE RECORDS SUMMARY | 2024-11-17 04:17 | XMS_ITS ---
Author Name [facility] Organization [facility] [place] Address [address] [place] [address] Care Team Providers Care Patient Registration Specialist Name Role Phone MANUEL BAIRD Primary [...] PART A Apr 08, 2017 PART A [id number] [phone] ASHLEY WALKER PATIENT Selected Encounter This section includes the information on record at [place] for the Encounter. Date/Time Encounter Type Encounter Description Reason Provider Source Aug 18, 2024 10:49 AM Inpatient Visit GENERAL INTERNAL MEDICINE ICD-10-CM I25.118 [facility] heart disease of [place] cor art w JUDIT Evangelista Encounter Template Text not used by [place] Assessments - Encounter Diagnoses This section includes the primary and secondary diagnoses documented for the Encounter. Date/Time Primary/Secondary Diagnosis Diagnosis Name Provider Source Aug 18, 2024 10:58 AM PRIMARY [facility] heart disease of [place] cor art w oth ang pctrs [facility] Aug 18, 2024 10:58 AM SECONDARY Anemia in other chronic diseases classified elsewhere [facility] Aug 18, 2024 10:58 AM SECONDARY Essential (primary) hypertension [facility] Aug 18, 2024 10:58 AM SECONDARY Type 2 diabetes w diabetic autonomic (poly)neuropathy [facility] Plan of Treatment: Future Appointments (+ 6 months) and Future Tests (+/- 45 days) The Plan of Treatment section includes future care activities for the [facility] This section includes future appointments and future orders which are active, pending or scheduled. Future Appointments This section includes appointments that were scheduled to occur 6 months from the date of the Encounter, up to a maximum of 20 appointments. The data comes from all [place] treatment facilities. Appointment Date/Time Appointment Type Appointme nt Facility Name Aug 24, 2024 10:00 AM AMBULATORY - [facility]IC[facility] Aug 24, 2024 10:30 AM [facility]ORY - [facility] Aug 30, 2024 09:30 AM [facility]BULATORY - [facility]ICINE [facility] Aug 31, 2024 01:00 PM AMBULATORY - SURGERY [facility] Sep 21, 2024 01:30 PM AMBULATORY - MEDICINE [facility] Sep 22, 2024 11:00 AM [facility] - [facility]ICINE [facility] Sep 29, 2024 12:30 PM AMBULATORY - MEDICINE [facility] Oct 02, 2024 09:30 AM AMBULATORY - MEDICINE [facility] Nov 20, 2024 10:30 AM AMBULATORY - SURGERY [facility] Nov 21, 2024 10:00 [...] Order [facility] [place] Cons Bedside [facility] [...] Aug 23, 2024 08:21 AM [facility] CBC Specimen Type: BLOOD No comment entered. Ordering Provider: SILVIA REDDY Report Released Date/Time: Aug 22, 2024 11:19 AM Reporting Lab: [facility] [address] Performing Lab: [facility] [address] WBC 4.0 10*3/uL 3.6-11.2 RBC 3.65 10*6/uL [...] 0.00-0.20 Aug 23, 2024 08:21 AM [facility] MAGNESIUM Specimen Type: PLASMA No comment entered. Ordering Provider: SILVIA REDDY Report Released Date/Time: Aug 22, 2024 11:26 AM Reporting Lab: [facility] [address] Performing Lab: [facility] [address] [facility] [address] MAGNESIUM 1.8 mg/dL 1.6-2.6 Aug 23, 2024 05:12 AM [facility] GLUCOSE,BLOOD-poct (STL) Specimen Type: BLOOD Comment: Test Performed by: [id number] Meter #: [id number] Ordering Provider: SILVIA REDDY Report Released Date/Time: Aug 23, 2024 05:23 AM Reporting Lab: [facility] [address] Performing Lab: [facility] [address] GLUCOSE,BLOOD- poct (STL) 99 mg/dL 72-99 Aug 23, 2024 02:45 AM [facility] OCCULT BLOOD FIT X1 SCREEN Specimen Type: FECES No comment entered. Ordering Provider: SILVIA REDDY Report Released Date/Time: Aug 22, 2024 11:23 AM Reporting Lab: [facility] [address] [place] [phone] Performing Lab: [address] [address] OCCULT BLOOD (FIT) #1 OF 1 Negative Negative Aug 22, 2024 07:30 PM [facility] OCCULT BLOOD FIT X1 SCREEN Specimen Type: FECES No comment entered. Ordering Provider: SILVIA REDDY Report Released Date/Time: Aug 22, 2024 11:23 AM Reporting Lab: [address] [address] Performing Lab: [address] [address] OCCULT BLOOD (FIT) #1 OF 1 Negative Negative Aug 22, 2024 06:15 PM [facility] OCCULT BLOOD FIT X1 SCREEN Specimen Type: FECES No comment entered. Ordering Provider: SILVIA REDDY Report Released Date/Time: Aug 22, 2024 11:23 AM Reporting Lab: [address] [address] Performing Lab: [address] [address] OCCULT BLOOD (FIT) #1 OF 1 Negative Negative Aug 22, 2024 04:24 PM [facility] GLUCOSE,BLOOD-poct (STL) Specimen Type: BLOOD Comment: Test Performed by: [id number] Meter #: [id number] Ordering Provider: SILVIA REDDY Report Released Date/Time: Aug 22, 2024 04:36 PM Reporting Lab: [facility] [address] Performing Lab: [facility] [address] GLUCOSE,BLOOD- poct (STL) 176 mg/dL H 72-99 Aug 22, 2024 04:23 PM [facility] GLUCOSE,BLOOD-poct (STL) Specimen Type: BLOOD Comment: Test Performed by: [id number] Meter #: [id number] Ordering Provider: SILVIA REDDY Report Released Date/Time: Aug 22, 2024 04:36 PM Reporting Lab: [facility] [address] Performing Lab: [facility] [facility] [address] GLUCOSE,BLOOD- poct (STL) 221 mg/dL H 72-99 Aug 22, 2024 11:15 AM [facility] GLUCOSE,BLOOD-poct (STL) Specimen Type: BLOOD Comment: Test Performed by: [id number] Meter #: [id number] Ordering Provider: SILVIA REDDY Report Released Date/Time: Aug 22, 2024 11:27 AM Reporting Lab: [facility] [address] Performing Lab: [facility] [address] GLUCOSE,BLOOD- poct (STL) 140 mg/dL H 72-99 Aug 22, 2024 08:03 AM [facility] CBC Specimen Type: BLOOD No comment entered. Ordering Provider: SILVIA REDDY Report Released Date/Time: Aug 17, 2024 01:18 PM Reporting Lab: [facility] [address] Performing Lab: [facility] [address] WBC 3.5 10*3/uL L 3.6-11.2 RBC 3.23 [...] 0 Aug 22, 2024 08:03 AM [facility] COMPREHENSIVE METABOLIC PANEL Specimen Type: PLASMA Comment: No hemolysis noted. Ordering Provider: SILVIA REDDY Report Released Date/Time: Aug 17, 2024 01:18 PM Reporting Lab: [facility] [address] [facility] [address] Performing Lab: [facility] [address] [place] [address] CREATININE 0.80 mg/dL 0.7-1.3 UREA NITROGEN 9.7 [...] Aug 22, 2024 08:03 AM [facility] FERRITIN Specimen Type: SERUM No comment entered. Ordering Provider: JUDIT PERKINS Report Released Date/Time: Aug 18, 2024 11:01 AM Reporting Lab: [facility] [address] [facility] [address] Performing Lab: [facility] [address] [place] [address] FERRITIN 79.50 ng/mL 22-275 Aug 22, 2024 08:03 AM [facility] IRON/TIBC PROFILE Specimen Type: SERUM No comment entered. Ordering Provider: JUDIT PERKINS Report Released Date/Time: Aug 18, 2024 11:01 AM Reporting Lab: [facility] [address] [facility] [address] Performing Lab: [facility] [address] [facility] [address] TIBC 283 ug/dL 250-450 TRANSFERRIN 226 mg/dL 163-344 IRON SATURATION 7 L 20-50 IRON 19 ug/dL L 65-175 Aug 22, 2024 08:03 AM [facility] B12 Specimen Type: SERUM No comment entered. Ordering Provider: JUDIT PERKINS Report Released Date/Time: Aug 18, 2024 11:01 AM Reporting Lab: [facility] [facility] [address] Performing Lab: [facility] [facility] [address] B12 631 pg/mL 213-816 Aug 22, 2024 05:03 AM [facility] GLUCOSE,BLOOD-poct (STL) Specimen Type: BLOOD Comment: Test Performed by: [id number] Meter #: [id number] Ordering Provider: SILVIA REDDY Report Released Date/Time: Aug 22, 2024 06:17 AM Reporting Lab: [facility] [facility] [address] Performing Lab: [facility] [facility] [address] GLUCOSE,BLOOD- poct (STL) 170 mg/dL H 72-99 Aug 21, 2024 04:32 PM [facility] GLUCOSE,BLOOD-poct (STL) Specimen Type: BLOOD Comment: Test Performed by: [id number] Meter #: [id number] Ordering Provider: SILVIA REDDY Report Released Date/Time: Aug 21, 2024 04:49 PM Reporting Lab: [facility] [facility] [address] Performing Lab: [facility] [facility] [address] GLUCOSE,BLOOD- poct (STL) 169 mg/dL H 72-99 Aug 21, 2024 11:53 AM [facility] GLUCOSE,BLOOD-poct (STL) Specimen Type: BLOOD Comment: Test Performed by: [id number] Meter #: [id number] Ordering Provider: SILVIA REDDY Report Released Date/Time: Aug 21, 2024 12:11 PM Reporting Lab: [facility] [address] [facility] [address] Performing Lab: [facility] [address] [facility] [address] GLUCOSE,BLOOD- poct (STL) 149 mg/dL H 72-Aug 21, 2024 05:10 AM [facility] GLUCOSE,BLOOD-poct (STL) Specimen Type: BLOOD Comment: Test Performed by: [id number] Meter #: [id number] Ordering Provider: SILVIA REDDY Report Released Date/Time: Aug 21, 2024 05:27 AM Reporting Lab: [facility] [address] [facility] [address] Performing Lab: [facility] [address] [facility] [address] GLUCOSE,BLOOD- poct (STL) 118 mg/dL H -Aug 20, 2024 04:38 PM [facility] GLUCOSE,BLOOD-poct (STL) Specimen Type: BLOOD Comment: Test Performed by: [id number] Meter #: [id number] Ordering Provider: SILVIA REDDY Report Released Date/Time: Aug 21, 2024 01:55 AM Reporting Lab: [facility] [address] [facility] [address] Performing Lab: [facility] [address] [facility] [address] GLUCOSE,BLOOD- poct (STL) 169 mg/dL H 72-99 Aug 20, 2024 04:36 PM [facility] GLUCOSE,BLOOD-poct (STL) Specimen Type: BLOOD Comment: Test Performed by: [id number] Meter #: [id number] Ordering Provider: SILVIA REDDY Report Released Date/Time: Aug 21, 2024 01:55 AM Reporting Lab: [facility] [address] [facility] [address] Performing Lab: [facility] [address] [place] [address] GLUCOSE,BLOOD- poct (STL) 395 mg/dL H 72-99 Aug 20, 2024 11:45 AM [facility] GLUCOSE,BLOOD-poct (STL) Specimen Type: BLOOD Comment: Test Performed by: [id number] Meter #: [id number] Ordering Provider: SILVIA REDDY Report Released Date/Time: Aug 20, 2024 11:56 AM Reporting Lab: [facility] [place] [address] Performing Lab: [facility] [address] [place] [address] GLUCOSE,BLOOD- poct (STL) 169 mg/dL H 72-99 Aug 20, 2024 05:06 AM [facility] GLUCOSE,BLOOD-poct (STL) Specimen Type: BLOOD Comment: Test Performed by: [id number] Meter #: [id number] Ordering Provider: SILVIA REDDY Report Released Date/Time: Aug 20, 2024 06:05 AM Reporting Lab: [facility] [place] [address] Performing Lab: [facility] [address] [place] [address] GLUCOSE,BLOOD- poct (STL) 115 mg/dL H 72-99 Aug 19, 2024 04:23 PM [facility] GLUCOSE,BLOOD-poct (STL) Specimen Type: BLOOD Comment: Test Performed by: [id number] Meter #: [id number] Ordering Provider: SILVIA REDDY Report Released Date/Time: Aug 19, 2024 05:54 PM Reporting Lab: [facility] [address] [place] [address] Performing Lab: [facility] [address] GLUCOSE,BLOOD- poct (STL) 137 mg/dL H -Aug 19, 2024 11:28 AM [facility] GLUCOSE,BLOOD-poct (STL) Specimen Type: BLOOD Comment: Test Performed by: [id number] Meter #: [id number] Ordering Provider: SILVIA REDDY Report Released Date/Time: Aug 19, 2024 11:51 AM Reporting Lab: [facility] [facility] [address] Performing Lab: [facility] [address] [facility] [address] GLUCOSE,BLOOD- poct (STL) 190 mg/dL H Aug 19, 2024 05:21 AM [facility] GLUCOSE,BLOOD-poct (STL) Specimen Type: BLOOD Comment: Test Performed by: [id number] Meter #: [id number] Ordering Provider: SILVIA REDDY Report Released Date/Time: Aug 19, 2024 05:56 AM Reporting Lab: [facility] [facility] [address] Performing Lab: [facility] [facility] [address] GLUCOSE,BLOOD- poct (STL) 130 mg/dL H Aug 18, 2024 04:49 PM [facility] GLUCOSE,BLOOD-poct (STL) Specimen Type: BLOOD Comment: Test Performed by: [id number] Meter #: [id number] Ordering Provider: SILVIA REDDY Report Released Date/Time: Aug 18, 2024 05:01 PM Reporting Lab: [facility] [facility] [address] Performing Lab: [facility] [address] [facility] [address] GLUCOSE,BLOOD- poct (STL) 129 mg/dL H Aug 18, 2024 11:23 AM [facility] GLUCOSE,BLOOD-poct (STL) Specimen Type: BLOOD Comment: Test Performed by: [id number] Meter #: [id number] Ordering Provider: SILVIA REDDY Report Released Date/Time: Aug 18, 2024 11:41 AM Reporting Lab: [facility] [facility] [address] Performing Lab: [facility] [facility] [address] GLUCOSE,BLOOD- poct (STL) 180 mg/dL H -Aug 18, 2024 05:08 AM [facility] GLUCOSE,BLOOD-poct (STL) Specimen Type: BLOOD Comment: Test Performed by: [id number] Meter #: [id number] Ordering Provider: SILVIA REDDY Report Released Date/Time: Aug 18, 2024 05:31 AM Reporting Lab: [facility] [facility] [address] Performing Lab: [facility] [facility] [address] GLUCOSE,BLOOD- poct (STL) 127 mg/dL H Aug 17, 2024 07:32 PM [facility] GLUCOSE,BLOOD-poct (STL) Specimen Type: BLOOD Comment: Test Performed by: [id number] Meter #: [id number] Ordering Provider: SILVIA REDDY Report Released Date/Time: Aug 17, 2024 07:59 PM Reporting Lab: [facility] [facility] [address] Performing Lab: [facility] [facility] [address] GLUCOSE,BLOOD- poct (STL) 154 mg/dL H Aug 17, 2024 04:24 PM [facility] GLUCOSE,BLOOD-poct (STL) Specimen Type: BLOOD Comment: Test Performed by: [id number] Meter #: [id number] Ordering Provider: SILVIA REDDY Report Released Date/Time: Aug 17, 2024 04:35 PM Reporting Lab: [facility] [facility] [address] Performing Lab: [facility] [facility] [address] GLUCOSE,BLOOD- poct (STL) 178 mg/dL H 72-99 Aug 17, 2024 05:09 AM [facility] GLUCOSE,BLOOD-poct (STL) Specimen Type: BLOOD Comment: Test Performed by: [id number] Meter #: [id number] Ordering Provider: SILVIA REDDY Report Released Date/Time: Aug 17, 2024 05:54 AM Reporting Lab: [facility] [address] Performing Lab: [facility] [facility] [address] GLUCOSE,BLOOD- poct (STL) 124 mg/dL H 72-99 Aug 16, 2024 07:40 PM [facility] GLUCOSE,BLOOD-poct (STL) Specimen Type: BLOOD Comment: Test Performed by: [id number] Meter #: [id number] Ordering Provider: SILVIA REDDY Report Released Date/Time: Aug 16, 2024 08:28 PM Reporting Lab: [facility] [address] Performing Lab: [facility] [address] GLUCOSE,BLOOD- poct (STL) 144 mg/dL H 72-99 Aug 16, 2024 04:19 PM [facility] GLUCOSE,BLOOD-poct (STL) Specimen Type: BLOOD Comment: Test Performed by: [id number] Meter #: [id number] Ordering Provider: SILVIA REDDY Report Released Date/Time: Aug 16, 2024 04:45 PM Reporting Lab: [facility] [place] [address] Performing Lab: [facility] [address] GLUCOSE,BLOOD- poct (STL) 138 mg/dL H Aug 16, 2024 11:52 AM [facility] GLUCOSE,BLOOD-poct (STL) Specimen Type: BLOOD Comment: Test Performed by: [id number] Meter #: [id number] Ordering Provider: SILVIA REDDY Report Released Date/Time: Aug 16, 2024 12:04 PM Reporting Lab: [facility] [address] Performing Lab: [facility] [facility] [address] GLUCOSE,BLOOD- poct (STL) 135 mg/dL H Aug 16, 2024 05:24 AM [facility] GLUCOSE,BLOOD-poct (STL) Specimen Type: BLOOD Comment: Test Performed by: [id number] Meter #: [id number] Ordering Provider: SILVIA REDDY Report Released Date/Time: Aug 16, 2024 05:38 AM Reporting Lab: [facility] [address] Performing Lab: [facility] [facility] [address] GLUCOSE,BLOOD- poct (STL) 151 mg/dL H Aug 15, 2024 07:31 PM [facility] GLUCOSE,BLOOD-poct (STL) Specimen Type: BLOOD Comment: Test Performed by: [id number] Meter #: [id number] Ordering Provider: SILVIA REDDY Report Released Date/Time: Aug 15, 2024 08:07 PM Reporting Lab: [facility] [address] Performing Lab: [facility] [address] GLUCOSE,BLOOD- poct (STL) 173 mg/dL H Aug 15, 2024 04:18 PM [facility] GLUCOSE,BLOOD-poct (STL) Specimen Type: BLOOD Comment: Test Performed by: [id number] Meter #: [id number] Ordering Provider: SILVIA REDDY Report Released Date/Time: Aug 15, 2024 04:59 PM Reporting Lab: [facility] [address] Performing Lab: [facility] [address] GLUCOSE,BLOOD- poct (STL) 136 mg/dL H -Aug 15, 2024 04:16 PM [facility] GLUCOSE,BLOOD-poct (STL) Specimen Type: BLOOD Comment: Test Performed by: [id number] Meter #: [id number] Ordering Provider: SILVIA REDDY Report Released Date/Time: Aug 15, 2024 04:59 PM Reporting Lab: [facility] [address] Performing Lab: [facility] [address] GLUCOSE,BLOOD- poct (STL) 194 mg/dL H Aug 15, 2024 11:39 AM [facility] GLUCOSE,BLOOD-poct (STL) Specimen Type: BLOOD Comment: Test Performed by: [id number] Meter #: [id number] Ordering Provider: SILVIA REDDY Report Released Date/Time: Aug 15, 2024 12:00 PM Reporting Lab: [facility] [address] Performing Lab: [facility] [address] GLUCOSE,BLOOD- poct (STL) 127 mg/dL H -Aug 15, 2024 05:07 AM [facility] GLUCOSE,BLOOD-poct (STL) Specimen Type: BLOOD Comment: Test Performed by: [id number] Meter #: [id number] Ordering Provider: SILVIA REDDY Report Released Date/Time: Aug 15, 2024 06:14 AM Reporting Lab: [facility] [address] Performing Lab: [facility] [place] [id number] GLUCOSE,BLOOD- poct (STL) 151 mg/dL H 72-99 Aug 14, 2024 04:22 PM [facility] GLUCOSE,BLOOD-poct (STL) Specimen Type: BLOOD Comment: Test Performed by: [id number] Meter #: [id number] Ordering Provider: SILVIA REDDY Report Released Date/Time: Aug 14, 2024 04:52 PM Reporting Lab: [facility] [address] Performing Lab: [facility] [place] [address] GLUCOSE,BLOOD- poct (STL) 129 mg/dL H 72-99 Aug 14, 2024 11:21 AM [facility] GLUCOSE,BLOOD-poct (STL) Specimen Type: BLOOD Comment: Test Performed by: [id number] Meter #: [id number] Ordering Provider: SILVIA REDDY Report Released Date/Time: Aug 14, 2024 11:37 AM Reporting Lab: [facility] [address] [facility] [id number] Performing Lab: [facility] [address] [place] [address] GLUCOSE,BLOOD- poct (STL) 135 mg/dL H 72-99 [...] tube is coated with the M. tuberculosis-spec [facility] antigens designed to elicit responses from TB antigen primed CD4+ helper T-lymphocytes. The TB2 Antigen tube is coated with the M. tuberculosis-spec ifi antigens designed to elicit responses from TB antigen primed CD4+ helper and CD8+ cytotoxic T-lymphocytes. For additional information, please refer to http://education. Symwave/faq/MLQ904 (This link is being provided for information/ educational purposes only.) Test Performed by [facility], [place], [address] [place] [address] Tommie Garcia M.D., Ph.D., Director of Laboratories , [facility] [id number] Ordering Provider: SILVIA REDDY Report Released Date/Time: Aug 11, 2024 03:58 PM Reporting Lab: [facility] [address] [facility] [id number] Performing Lab: [facility] [address] [place] [address] .NIL - QUANTIFERON 0.04 [IU]/mL .MITOGEN-NIL 0.39 [IU]/mL .QUANTIFERON INDETERMINATE NEGATIVE .TB1-NIL <0.00 [IU]/mL .TB2-NIL <0.00 [IU]/mL Aug 14, 2024 06:59 AM [facility] MAGNESIUM Specimen Type: PLASMA Comment: No hemolysis noted. Ordering Provider: SILVIA REDDY Report Released Date/Time: Aug 11, 2024 03:58 PM Reporting Lab: [facility] [address] [facility] [id number] Performing Lab: [facility] [address] [facility] [address] MAGNESIUM 1.9 mg/dL 1.6-2.6 Aug 14, 2024 06:59 AM [facility] B12 Specimen Type: SERUM No comment entered. Ordering Provider: SILVIA REDDY Report Released Date/Time: Aug 11, 2024 03:58 PM Reporting Lab: [facility] [address] [place] [address] Performing Lab: [facility] [address] [place] [id number] B12 757 pg/mL 213-816 Aug 14, 2024 06:59 AM [facility] FOLATE ([facility]) Specimen Type: SERUM No comment entered. Ordering Provider: SILVIA REDDY Report Released Date/Time: Aug 11, 2024 03:58 PM Reporting Lab: [facility] [address] [place] [address] Performing Lab: [facility] [address] [place] [address] FOLATE ([facility] 6.8 ng/mL L 7-20 Aug 14, 2024 06:59 AM [facility] VITAMIN D, 25-HYDROXY Specimen Type: SERUM No comment entered. Ordering Provider: SILVIA REDDY Report Released Date/Time: Aug 11, 2024 03:58 PM Reporting Lab: [facility] [facility] [place] [address] Performing Lab: [facility] [place] [phone] VITAMIN D, 25-HYDROXY 8.9 ng/mL L 30-96 Aug 14, 2024 06:59 AM [facility] COMPREHENSIVE METABOLIC PANEL Specimen Type: PLASMA Comment: No hemolysis noted. Ordering Provider: SILVIA REDDY Report Released Date/Time: Aug 11, 2024 03:58 PM Reporting Lab: [facility] [place] [address] Performing Lab: [facility] [place] [phone] CREATININE 0.75 mg/dL 0.70-1.30 UREA NITROGEN 13.6 [...] AM [facility] CBC Specimen Type: BLOOD No comment entered. Ordering Provider: SILVIA REDDY Report Released Date/Time: Aug 11, 2024 03:58 PM Reporting Lab: [facility] [address] Performing Lab: [facility] [phone] WBC 4.1 10*3/uL 3.6-11.2 RBC 3.20 10*6/uL [...] Specimen Type: BLOOD Comment: Test Performed by: [id number] Meter #: [id number] Ordering Provider: SILVIA REDDY Report Released Date/Time: Aug 14, 2024 05:52 AM Reporting Lab: [facility] [phone] Performing Lab: [facility] [place] [address] GLUCOSE,BLOOD- poct (STL) 135 mg/dL H -Aug 13, 2024 04:27 PM [facility] GLUCOSE,BLOOD-poct (STL) Specimen Type: BLOOD Comment: Test Performed by: [id number] Meter #: [id number] Ordering Provider: SILVIA REDDY Report Released Date/Time: Aug 13, 2024 04:41 PM Reporting Lab: [facility] [phone] Performing Lab: [facility] [place] [address] GLUCOSE,BLOOD- poct (STL) 181 mg/dL H -Aug 13, 2024 11:33 AM [facility] GLUCOSE,BLOOD-poct (STL) Specimen Type: BLOOD Comment: Test Performed by: [id number] Meter #: [id number] Ordering Provider: SILVIA REDDY Report Released Date/Time: Aug 13, 2024 03:55 PM Reporting Lab: [facility] [address] Performing Lab: [facility] [phone] GLUCOSE,BLOOD- poct (STL) 140 mg/dL H 72-Aug 13, 2024 05:54 AM [facility] GLUCOSE,BLOOD-poct (STL) Specimen Type: BLOOD Comment: Test Performed by: [id number] Meter #: [id number] Ordering Provider: SILVIA REDDY Report Released Date/Time: Aug 13, 2024 06:20 AM Reporting Lab: [facility] [place] [address] Performing Lab: [facility] [place] [address] GLUCOSE,BLOOD- poct (STL) 112 mg/dL H 72-Aug 12, 2024 04:35 PM [facility] GLUCOSE,BLOOD-poct (STL) Specimen Type: BLOOD Comment: Test Performed by: [id number] Meter #: [id number] Ordering Provider: SILVIA REDDY Report Released Date/Time: Aug 12, 2024 04:47 PM Reporting Lab: [facility] [place] [address] Performing Lab: [facility] [place] [address] GLUCOSE,BLOOD- poct (STL) 128 mg/dL H 72-Aug 12, 2024 11:26 AM [facility] GLUCOSE,BLOOD-poct (STL) Specimen Type: BLOOD Comment: Test Performed by: [id number] Meter #: [id number] Ordering Provider: SILVIA REDDY Report Released Date/Time: Aug 12, 2024 11:45 AM Reporting Lab: [facility] [place] [address] Performing Lab: [facility] [place] [address] GLUCOSE,BLOOD- poct (STL) 188 mg/dL H 72-Aug 12, 2024 06:13 AM [facility] GLUCOSE,BLOOD-poct (STL) Specimen Type: BLOOD Comment: Test Performed by: [id number] Meter #: [id number] Ordering Provider: SILVIA REDDY Report Released Date/Time: Aug 12, 2024 06:25 AM Reporting Lab: [facility] [address] Performing Lab: [facility] [phone] GLUCOSE,BLOOD- poct (STL) 116 mg/dL H 72-99 Aug 11, 2024 04:10 PM [facility] GLUCOSE,BLOOD-poct (STL) Specimen Type: BLOOD Comment: Test Performed by: [id number] Meter #: [id number] Ordering Provider: SILVIA REDDY Report Released Date/Time: Aug 11, 2024 04:27 PM Reporting Lab: [facility] [address] Performing Lab: [facility] [facility] [address] GLUCOSE,BLOOD- poct (STL) 184 mg/dL H 72-99 [...] Aug 11, 2024 02:03 PM Reporting Lab: [facility] [address] [facility] [address] Performing Lab: [facility] [address] [place] [phone] MRSA SURVL NARES DNA Negative Negative Jul 20, 2024 11:18 AM [facility] APTT Specimen Type: PLASMA No comment entered. Ordering Provider: MANUEL BAIRD Report Released Date/Time: Jul 19, 2024 04:00 PM Reporting Lab: [facility] [address] [facility] [address] Performing Lab: [facility] [address] [facility] [phone] APTT 32.1 s 26.7-39.9 Jul 20, 2024 11:18 AM [facility] PT/INR NEW (ST-FL) Specimen Type: PLASMA No comment entered. Ordering Provider: MANUEL BAIRD Report Released Date/Time: Jul 19, 2024 04:00 PM Reporting Lab: [facility] [address] [place] [phone] Performing Lab: [facility] [address] [place] [phone] PROTIME 14.4 s H 9.4-12.5 INR VALUE 1.3 {INR} Jul 20, 2024 11:18 AM [facility] CBC Specimen Type: BLOOD No comment entered. Ordering Provider: MANUEL BAIRD Report Released Date/Time: Jul 19, 2024 04:00 PM Reporting Lab: [facility] [address] [place] [phone] Performing Lab: [address] [address] WBC 4.7 10*3/uL 3.6-11.2 RBC 4.86 10*6/uL [...] 07:55 PM 98.2 78 106/65 18 96 [facility] Aug 18, 2024 07:20 PM 0 [facility] Aug 18, 2024 01:52 PM 0 [facility] Aug 18, 2024 10:16 AM 97.7 79 133/79 18 95 [facility] Aug 18, 2024 05:41 AM 97 71 136/74 18 96 0 [facility] Advance Directives: All historical [...] ADVANCE DIRECTIVE DISCUSSION ERICK BARDALES [facility] Encounter Notes: All associated encounter notes This section contains the clinical notes associated to the Encounter. Date/Time Encounter Note(s) Provider Source Aug 18, 2024 10:49 AM SOUND TECHNICIAN SUPERVISOR CARE NOT E: LOCAL TITLE: [facility] NOTE [facility] STANDARD TITLE: SOUND TECHNICIAN SUPERVISOR CARE NOTE DATE OF NOTE: AUG 18, 2024@10:49 ENTRY DATE: AUG 18, 2024@10:49:28 AUTHOR: JUDIT PERKINS EXP COSIGNER: URGENCY: STATUS: COMPLETED SUBJECTIVE: Patient feels fine, reports that he is better than previously. No chest tenderness at the area of incision, sternal incision and pacemaker sites are healing well without swelling or inflammation. He is occasionally becoming dyspneic with therapy. Is ambulatory. The harvested vein at left upper extremity site is healing, less painful. Discussed with patient regarding anemia, he is never had a colonoscopy in the past according to him, refused due to choice. Will add iron studies if needs supplementation. Also patient has many questions in regards of using insulin at home, as he is off insulin since hospitalization. Advised to keep Accu-Chek log and continue without insulin when discharged, will close follow-up by chalk cutter. REVIEW OF SYSTEMS: Pain: Denies Bowels: Regular Sleep: Good Weight: Fairly stable Past Medical History 1) Asthma (SNOMED CT 237052310) 2) Gastro-esophageal reflux disease (SNOMED CT 796707043) 3) Peptic Ulcer Disease * (ICD-9-CM 533.90) 4) Hypertension (SNOMED CT 28673158) 5) Neoplasm of pituitary gland (SNOMED CT 943483175) 6) Hyperlipidemia (SNOMED CT 81723038) 7) Erectile dysfunction associated with type 2 [...] 21) Obstructive Sleep Apnea of Adult (SCT 0636992352029) TRAMADOL Inpatient Medications 1) PREGABALIN CAP,ORAL PO BID 100MG 2) [...] 17) CARVEDILOL TAB PO CC BID 3.125MG OBJECTIVE: Vitals: Measurement DT BP 08/18/2024 10:16 133/79 08/18/2024 05:41 136/74 08/17/2024 20:06 110/67 79 (08/18/2024 10:16) 18 (08/18/2024 10:16) 97.7 F [36.5 C] (08/18/2024 10:16) Measurement DT PAIN 08/18/2024 05:41 0 08/17/2024 23:06 4 08/17/2024 22:01 7 Measurement DT WEIGHT LB(KG)[BMI] 08/13/2024 10:48 211.9(96.12)[30*] 08/12/2024 12:41 212.3(96.30)[31*] 08/11/2024 14:26 211.1(95.75)[30*] 30.5 General: Patient is awake, alert, NAD, cooperative, pleasant on room air HEENT: anicteric sclera, moist mucous membranes, no oral erythema or lesions Lungs: good air movement, normal respiratory effort, no wheezes or rales CVS: RRR, no murmur Abdomen: soft, non-tender, non-distended, normoactive bowel sounds, no organomegaly Ext: No lower extremity edema, feet are well-perfused, left upper extremity with erythema around incision. Neuro: alert and oriented, CNII-XII grossly intact, no focal deficits Skin/ulcers: Sternal incision and left subclavian pacemaker sites are healing. Chest tube sites are healing as well. LAB TESTS SELECTED Collection DT Specimen Test Name Result Units Ref Range 08/14/2024 06:00 PLASMA SODIUM 134 L mEq/L 136 - 145 08/14/2024 06:00 PLASMA POTASSIUM 4.1 mEq/L 3.5 - 5.0 08/14/2024 06:00 PLASMA CHLORIDE 103 mEq/L 98 - 107 08/14/2024 06:00 PLASMA CARBON DIOXIDE 21 L mEq/L 22 - 31 08/14/2024 06:00 PLASMA UREA NITROGEN 13.6 mg/dL 9.0 - 25.0 08/14/2024 06:00 PLASMA CREATININE 0.75 mg/dL 0.70 - 1.30 08/14/2024 06:00 PLASMA GLUCOSE 109 H mg/dL 72 - 99 Comment: No hemolysis noted. 07/20/2024 11:18 PLASMA PROTIME 14.4 H sec 9.4 - 12.5 07/20/2024 11:18 PLASMA INR VALUE 1.3 INR 06/05/2024 09:00 SERUM TSH 3.510 uIU/mL 0.47 - 5 06/05/2024 09:00 SERUM FREE T4 (MA-PB) 0.78 ng/mL 0.7 - 1.48 06/09/2024 11:48 URINE CREATuF 163.4 mg/dL 63 - 166 08/14/2024 06:00 BLOOD WBC 4.1 10*3/uL 3.6 - 11.2 08/14/2024 06:00 BLOOD RBC 3.20 L 10*6/uL 4.10 - 5.70 08/14/2024 06:00 BLOOD HGB 8.0 L g/dL 13.1 - 16.8 08/14/2024 06:00 BLOOD HCT 25.6 L % 38.2 - 48.4 08/14/2024 06:00 BLOOD MCV 80.0 fL 80.0 - 100.0 08/14/2024 06:00 BLOOD MCH 25.0 L pg 27.0 - 34.0 08/14/2024 06:00 BLOOD MCHC 31.3 L g/dL 33.0 - 36.0 08/14/2024 06:00 BLOOD PLT 167 10*3/uL 150 - 400 08/14/2024 06:00 BLOOD MPV 9.1 fL 7.5 - 11.2 08/14/2024 06:00 BLOOD RDW 15.9 H % 11.8 - 15.1 08/14/2024 06:00 BLOOD LYMPHOCYTES, AUTO 23 % 08/14/2024 06:00 BLOOD MONOCYTES, AUTO % 11 % 08/14/2024 06:00 BLOOD NEUTROPHILS, AUTO 56 % 08/14/2024 06:00 BLOOD EOSINOPHILS, AUTO 8 % 08/14/2024 06:00 BLOOD BASOPHILS, AUTO % 2 % 08/14/2024 06:00 BLOOD LYMPH ABS 0.94 10*3/uL 0.77 - 4.50 08/14/2024 06:00 BLOOD MONOCYTES, ABSOLU 0.46 10*3/uL 0.19 - 0.80 08/14/2024 06:00 BLOOD NEUT ABS 2.27 10*3/uL 2.10 - 8.00 08/14/2024 06:00 BLOOD EO ABS 0.32 10*3/uL 0.00 - 0.60 08/14/2024 06:00 BLOOD BASOPHILS, ABSOLU 0.07 10*3/uL 0.00 - 0.20 ASSESSMENT & PLAN: #CAD, s/p CABGx3, started on Plavix and continued on aspirin, statin, but Coreg held due to hypotension. Patient now has pacemaker for complete heart block. Follow-up with CT surgery in 4 weeks. -On low-dose Coreg now. 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 Coreg, Imdur, Entresto held [...] discontinued. He is on sliding scale only. 08/18 discontinued sliding scale, patient is currently off all blood glucose medications. Discussed with patient to continue without insulin, as he lost significant amount of weight. We can start low-dose of metformin at 500 mg daily, and stop sliding scale insulin. # Complete heart block, pacemaker placed. # Diabetic neuropathy, painful. On Lyrica and duloxetine.Can increase Lyrica if needed. # Anemia, microcytic. post procedurally, recent hemoglobin 8. -Discussed with patient in regards of anemia, he reports of never having colonoscopy due to choice. He apparently has a follow-up with splash line operator planned, but that he missed due to hospitalization. Added ferritin with iron studies for next week if he needs iron supplement. He did not notice blood in stool, black tarry stools. #HTN-relative hypotension at the hospital, will monitor off Coreg, Imdur, Entresto. Started on low-dose Coreg. # Knee osteoarthritis, patient does not report knee pain. # Obstructive sleep apnea, has home CPAP unit. # Diet: Soft, diabetic, low-sodium. #Generalized weakness: consult PT/OT for strength and mobilization of the [place]. Previously ambulated with a walker or cane, lives in a house with plan to return on home with son. -Improved, plan for discharge next week. # Other issues: History of pituitary adenoma, obesity, hepatic steatosis. Previously on Ozempic, will monitor his appetite and glucose in order to restart or not. History of kidney injury in childhood, patient does not recall exactly details. # Disposition. Plan for discharge next week Wednesday to home with son. PAIN: -Currently no complaints of pain, can use Tylenol as needed. BOWELS: -Monitor bowel regimen. SLEEP: -No complaints WEIGHT: -Weekly weight # Pain: see above -vet educated on non-pharmacologic methods available for pain relief like position, icepack application, diversionary activities etc. # Bowels: see above -vet educated to inform nursing staff/provider immediately if no BM for 3 days # Sleep: see above -vet educated on good sleep hygiene # All medications including non-VA and OTC were reviewed with the patient and/or caregiver and no discrepancies exist. # Pt. verbalized understanding plan of care and agrees with it. /shen/ JUDIT PERKINS PHYSICIAN CLC Signed: 08/18/2024 10:59 JUDIT PERKINS [facility]
--- OUTSIDE RECORDS SUMMARY | 2024-11-17 04:17 | XMS_ITS | Encounter Summary ---
Author Name [facility] [place] Organization [facility] [place] Address [address] [place] [address] Care Team Providers Care Bat Person Name Role Phone MANUEL BAIRD Primary Care [...] PART A Apr 08, 2017 PART A [id number] ASHLEY FINK PATIENT Selected Encounter This section includes the information on record at [place] for the Encounter. Date/Time Encounter Type Encounter Description Reason Provider Source Aug 18, 2024 03:30 PM OFFICE O/P EST MOD 30 MIN CARDIOLOGY ICD-10-CM I25.118 [place] heart disease of [place] cor art w oth ang pctrs JOSE SIERRA IHE Encounter Template Text not used by [facility] Assessments - Encounter Diagnoses This section includes the primary and secondary diagnoses documented for the Encounter. 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 [facility] Aug 18, 2024 03:58 PM SECONDARY Atrioventricular block, complete [facility] Aug 18, 2024 03:58 PM SECONDARY Essential (primary) hypertension [facility] Aug 18, 2024 03:58 PM SECONDARY Hyperlipidemia, unspecified [facility] Aug 18, 2024 03:58 PM SECONDARY Obstructive sleep apnea (adult) (pediatric) [facility] Aug 18, 2024 03:58 PM SECONDARY Presence of automatic (implantable) cardiac defibrillator [facility] Aug 18, 2024 03:58 PM SECONDARY Type 2 diabetes w diabetic autonomic (poly)neuropathy [facility] Plan of Treatment: Future Appointments (+ 6 months) and Future Tests (+/- 45 days) The Plan of Treatment section includes future care activities for the patient from all [facility]. This section includes future appointments and [...] 30, 2024 09:30 AM AMBULATORY - MEDICINE [facility] Aug 31, 2024 01:00 PM AMBULATORY - SURGERY [facility] Sep 21, 2024 01:30 PM AMBULATORY - MEDICINE [facility] Sep 22, 2024 11:00 AM AMBULATORY - MEDICINE [facility] Sep 29, 2024 12:30 PM AMBULATORY - MEDICINE [facility] Oct 02, 2024 09:30 AM AMBULATORY - MEDICINE [facility] Nov 20, 2024 10:30 AM AMBULATORY - SURGERY [facility] Jul[facility] JOLLEY [facility] Nov 21, 2024 10:00 AM AMBULATORY - NONE [facility] LES[facility] Hirsch [facility] Dec 11, 2024 10:30 AM AMBULATORY - MEDICINE [facility] Active, Pending, and Scheduled [...] - Chemistry Order CBC BLOOD STAT SP [facility] Aug 02, 2024 12:00 AM Laboratory - Chemistry Order COMPREHENSIVE METABOLIC PANEL GREEN LI/HEP BLD/PLAS PLASMA SP [facility] Aug 17, 2024 03:47 PM Consult Order [facility] Cons Bedside [facility] Lab Results: +/- 30 days of [...] Aug 23, 2024 08:21 AM [facility] MAGNESIUM Specimen Type: PLASMA No comment entered. Ordering Provider: SILVIA REDDY Report Released Date/Time: Aug 22, 2024 11:26 AM Reporting Lab: [facility] [address] Performing Lab: [facility] [address] MAGNESIUM 1.8 mg/dL 1.6-2.6 Aug 23, 2024 08:[address] [facility] CBC Specimen Type: BLOOD No comment entered. Ordering Provider: SILVIA REDDY Report Released Date/Time: Aug 22, 2024 11:19 AM Reporting Lab: [facility] [address] Performing Lab: [facility] [address] WBC 4.0 10*3/uL 3.6-11.2 RBC 3.65 10*6/uL [...] Aug 23, 2024 05:12 AM [facility] GLUCOSE,BLOOD-poct (STL) Specimen Type: BLOOD Comment: Test Performed by: [id number] Meter #: [id number] Ordering Provider: SILVIA REDDY Report Released Date/Time: Aug 23, 2024 05:23 AM Reporting Lab: [facility] [address] Performing Lab: [facility] [address] GLUCOSE,BLOOD- poct (STL) 99 mg/dL 72-99 Aug 23, 2024 02:45 AM [facility] OCCULT BLOOD FIT X1 SCREEN Specimen Type: FECES No comment entered. Ordering Provider: SILVIA REDDY Report Released Date/Time: Aug 22, 2024 11:23 AM Reporting Lab: [address] [address] Performing Lab: [address] [address] OCCULT BLOOD (FIT) #1 OF 1 Negative Negative Aug 22, 2024 07:30 PM [facility] OCCULT BLOOD FIT X1 SCREEN Specimen Type: FECES No comment entered. Ordering Provider: SILVIA REDDY Report Released Date/Time: Aug 22, 2024 11:23 AM Reporting Lab: [address] [address] Performing Lab: [address] [address] OCCULT BLOOD (FIT) #1 OF 1 Negative Negative Aug 22, 2024 06:15 PM [facility] OCCULT BLOOD FIT X1 SCREEN Specimen Type: FECES No comment entered. Ordering Provider: SILVIA REDDY Report Released Date/Time: Aug 22, 2024 11:23 AM Reporting Lab: [address] [address] Performing Lab: [address] [address] OCCULT BLOOD (FIT) #1 OF 1 Negative Negative Aug 22, 2024 04:24 PM [facility] GLUCOSE,BLOOD-poct (STL) Specimen Type: BLOOD Comment: Test Performed by: [id number] Meter #: [id number] Ordering Provider: SILVIA REDDY Report Released Date/Time: Aug 22, 2024 04:36 PM Reporting Lab: [facility] [address] Performing Lab: [facility] [address] GLUCOSE,BLOOD- poct (STL) 176 mg/dL H 72-Aug 22, 2024 04:23 PM [facility] GLUCOSE,BLOOD-poct (STL) Specimen Type: BLOOD Comment: Test Performed by: [id number] Meter #: [id number] Ordering Provider: SILVIA REDDY Report Released Date/Time: Aug 22, 2024 04:36 PM Reporting Lab: [facility] [address] Performing Lab: [facility] [address] GLUCOSE,BLOOD- poct (STL) 221 mg/dL H -Aug 22, 2024 11:15 AM [facility] GLUCOSE,BLOOD-poct (STL) Specimen Type: BLOOD Comment: Test Performed by: [id number] Meter #: [id number] Ordering Provider: SILVIA REDDY Report Released Date/Time: Aug 22, 2024 11:27 AM Reporting Lab: [facility] [address] Performing Lab: [facility] [address] GLUCOSE,BLOOD- poct (STL) 140 mg/dL H 72-Aug 22, 2024 08:03 AM [facility] FERRITIN Specimen Type: SERUM No comment entered. Ordering Provider: JUDIT PERKINS Report Released Date/Time: Aug 18, 2024 11:01 AM Reporting Lab: [facility] [address] [facility] [address] Performing Lab: [facility] [address] [address] FERRITIN 79.50 ng/mL 22-Aug 22, 2024 08:03 AM [facility] IRON/TIBC PROFILE Specimen Type: SERUM No comment entered. Ordering Provider: JUDIT PERKINS Report Released Date/Time: Aug 18, 2024 11:01 AM Reporting Lab: [facility] [address] [facility] [address] Performing Lab: [facility] [address] [facility] [address] TIBC 283 ug/dL 250-450 TRANSFERRIN 226 mg/dL 163-344 IRON SATURATION 7 L 20-50 IRON 19 ug/dL L 65-175 Aug 22, 2024 08:03 AM [facility] B12 Specimen Type: SERUM No comment entered. Ordering Provider: JUDIT PERKINS Report Released Date/Time: Aug 18, 2024 11:01 AM Reporting Lab: [facility] [address] Performing Lab: [facility] [address] B12 631 pg/mL 213-816 Aug 22, 2024 08:03 AM [facility] COMPREHENSIVE METABOLIC PANEL Specimen Type: PLASMA Comment: No hemolysis noted. Ordering Provider: SILVIA REDDY Report Released Date/Time: Aug 17, 2024 01:18 PM Reporting Lab: [facility] [address] [facility] [address] Performing Lab: [address] [address] CREATININE 0.80 mg/dL 0.7-1.3 UREA NITROGEN 9.7 [...] Reporting Lab: [facility] [place] [phone] Performing Lab: [facility] [place] [address] WBC 3.5 10*3/uL L 3.6-11.2 RBC 3.23 [...] Aug 22, 2024 05:03 AM [facility] GLUCOSE,BLOOD-poct (STL) Specimen Type: BLOOD Comment: Test Performed by: [id number] Meter #: [id number] Ordering Provider: SILVIA REDDY Report Released Date/Time: Aug 22, 2024 06:17 AM Reporting Lab: [facility] [place] [phone] Performing Lab: [facility] [address] GLUCOSE,BLOOD- poct (STL) 170 mg/dL H 72-99 Aug 21, 2024 04:32 PM [facility] GLUCOSE,BLOOD-poct (STL) Specimen Type: BLOOD Comment: Test Performed by: [id number] Meter #: [id number] Ordering Provider: SILVIA REDDY Report Released Date/Time: Aug 21, 2024 04:49 PM Reporting Lab: [facility] [facility] [address] Performing Lab: [facility] [address] GLUCOSE,BLOOD- poct (STL) 169 mg/dL H 72-99 Aug 21, 2024 11:53 AM [facility] GLUCOSE,BLOOD-poct (STL) Specimen Type: BLOOD Comment: Test Performed by: [id number] Meter #: [id number] Ordering Provider: SILVIA REDDY Report Released Date/Time: Aug 21, 2024 12:11 PM Reporting Lab: [facility] [facility] [address] Performing Lab: [facility] [address] GLUCOSE,BLOOD- poct (STL) 149 mg/dL H 72-99 Aug 21, 2024 05:10 AM [facility] GLUCOSE,BLOOD-poct (STL) Specimen Type: BLOOD Comment: Test Performed by: [id number] Meter #: [id number] Ordering Provider: SILVIA REDDY Report Released Date/Time: Aug 21, 2024 05:27 AM Reporting Lab: [facility] [facility] [address] Performing Lab: [facility] [facility] [address] GLUCOSE,BLOOD- poct (STL) 118 mg/dL H 72-99 Aug 20, 2024 04:38 PM [facility] GLUCOSE,BLOOD-poct (STL) Specimen Type: BLOOD Comment: Test Performed by: [id number] Meter #: [id number] Ordering Provider: SILVIA REDDY Report Released Date/Time: Aug 21, 2024 01:55 AM Reporting Lab: [facility] [address] Performing Lab: [facility] [facility] [address] GLUCOSE,BLOOD- poct (STL) 169 mg/dL H 72-99 Aug 20, 2024 04:36 PM [facility] GLUCOSE,BLOOD-poct (STL) Specimen Type: BLOOD Comment: Test Performed by: [id number] Meter #: [id number] Ordering Provider: SILVIA REDDY Report Released Date/Time: Aug 21, 2024 01:55 AM Reporting Lab: [facility] [address] Performing Lab: [facility] [address] GLUCOSE,BLOOD- poct (STL) 395 mg/dL H 72-Aug 20, 2024 11:45 AM [facility] GLUCOSE,BLOOD-poct (STL) Specimen Type: BLOOD Comment: Test Performed by: [id number] Meter #: [id number] Ordering Provider: SILVIA REDDY Report Released Date/Time: Aug 20, 2024 11:56 AM Reporting Lab: [facility] [address] Performing Lab: [facility] [facility] [address] GLUCOSE,BLOOD- poct (STL) 169 mg/dL H 72-99 Aug 20, 2024 05:06 AM [facility] GLUCOSE,BLOOD-poct (STL) Specimen Type: BLOOD Comment: Test Performed by: [id number] Meter #: [id number] Ordering Provider: SILVIA REDDY Report Released Date/Time: Aug 20, 2024 06:05 AM Reporting Lab: [facility] [place] [address] Performing Lab: [facility] [address] GLUCOSE,BLOOD- poct (STL) 115 mg/dL H -Aug 19, 2024 04:23 PM [facility] GLUCOSE,BLOOD-poct (STL) Specimen Type: BLOOD Comment: Test Performed by: [id number] Meter #: [id number] Ordering Provider: SILVIA REDDY Report Released Date/Time: Aug 19, 2024 05:54 PM Reporting Lab: [facility] [address] Performing Lab: [facility] [facility] [address] GLUCOSE,BLOOD- poct (STL) 137 mg/dL H Aug 19, 2024 11:28 AM [facility] GLUCOSE,BLOOD-poct (STL) Specimen Type: BLOOD Comment: Test Performed by: [id number] Meter #: [id number] Ordering Provider: SILVIA REDDY Report Released Date/Time: Aug 19, 2024 11:51 AM Reporting Lab: [facility] [facility] [address] Performing Lab: [facility] [facility] [address] GLUCOSE,BLOOD- poct (STL) 190 mg/dL H Aug 19, 2024 05:21 AM [facility] GLUCOSE,BLOOD-poct (STL) Specimen Type: BLOOD Comment: Test Performed by: [id number] Meter #: [id number] Ordering Provider: SILVIA REDDY Report Released Date/Time: Aug 19, 2024 05:56 AM Reporting Lab: [facility] [address] Performing Lab: [facility] [facility] [address] GLUCOSE,BLOOD- poct (STL) 130 mg/dL H Aug 18, 2024 04:49 PM [facility] GLUCOSE,BLOOD-poct (STL) Specimen Type: BLOOD Comment: Test Performed by: [id number] Meter #: [id number] Ordering Provider: SILVIA REDDY Report Released Date/Time: Aug 18, 2024 05:01 PM Reporting Lab: [facility] [facility] [address] Performing Lab: [facility] [address] GLUCOSE,BLOOD- poct (STL) 129 mg/dL H 72-Aug 18, 2024 11:23 AM [facility] GLUCOSE,BLOOD-poct (STL) Specimen Type: BLOOD Comment: Test Performed by: [id number] Meter #: [id number] Ordering Provider: SILVIA REDDY Report Released Date/Time: Aug 18, 2024 11:41 AM Reporting Lab: [facility] [address] Performing Lab: [facility] [address] GLUCOSE,BLOOD- poct (STL) 180 mg/dL H -Aug 18, 2024 05:08 AM [facility] GLUCOSE,BLOOD-poct (STL) Specimen Type: BLOOD Comment: Test Performed by: [id number] Meter #: [id number] Ordering Provider: SILVIA REDDY Report Released Date/Time: Aug 18, 2024 05:31 AM Reporting Lab: [facility] [address] Performing Lab: [facility] [address] GLUCOSE,BLOOD- poct (STL) 127 mg/dL H 72-Aug 17, 2024 07:32 PM [facility] GLUCOSE,BLOOD-poct (STL) Specimen Type: BLOOD Comment: Test Performed by: [id number] Meter #: [id number] Ordering Provider: SILVIA REDDY Report Released Date/Time: Aug 17, 2024 07:59 PM Reporting Lab: [facility] [address] Performing Lab: [facility] [address] GLUCOSE,BLOOD- poct (STL) 154 mg/dL H 72-Aug 17, 2024 04:24 PM [facility] GLUCOSE,BLOOD-poct (STL) Specimen Type: BLOOD Comment: Test Performed by: [id number] Meter #: [id number] Ordering Provider: SILVIA REDDY Report Released Date/Time: Aug 17, 2024 04:35 PM Reporting Lab: [facility] [address] Performing Lab: [facility] [address] GLUCOSE,BLOOD- poct (STL) 178 mg/dL H -Aug 17, 2024 05:09 AM [facility] GLUCOSE,BLOOD-poct (STL) Specimen Type: BLOOD Comment: Test Performed by: [id number] Meter #: [id number] Ordering Provider: SILVIA REDDY Report Released Date/Time: Aug 17, 2024 05:54 AM Reporting Lab: [facility] [address] Performing Lab: [facility] [address] GLUCOSE,BLOOD- poct (STL) 124 mg/dL H 72-Aug 16, 2024 07:40 PM [facility] GLUCOSE,BLOOD-poct (STL) Specimen Type: BLOOD Comment: Test Performed by: [id number] Meter #: [id number] Ordering Provider: SILVIA REDDY Report Released Date/Time: Aug 16, 2024 08:28 PM Reporting Lab: [facility] [address] Performing Lab: [facility] [address] GLUCOSE,BLOOD- poct (STL) 144 mg/dL H Aug 16, 2024 04:19 PM [facility] GLUCOSE,BLOOD-poct (STL) Specimen Type: BLOOD Comment: Test Performed by: [id number] Meter #: [id number] Ordering Provider: SILVIA REDDY Report Released Date/Time: Aug 16, 2024 04:45 PM Reporting Lab: [facility] [address] Performing Lab: [facility] [address] GLUCOSE,BLOOD- poct (STL) 138 mg/dL H Aug 16, 2024 11:52 AM [facility] GLUCOSE,BLOOD-poct (STL) Specimen Type: BLOOD Comment: Test Performed by: [id number] Meter #: [id number] Ordering Provider: SILVIA REDDY Report Released Date/Time: Aug 16, 2024 12:04 PM Reporting Lab: [facility] [address] Performing Lab: [facility] [address] GLUCOSE,BLOOD- poct (STL) 135 mg/dL H Aug 16, 2024 05:24 AM [facility] GLUCOSE,BLOOD-poct (STL) Specimen Type: BLOOD Comment: Test Performed by: [id number] Meter #: [id number] Ordering Provider: SILVIA REDDY Report Released Date/Time: Aug 16, 2024 05:38 AM Reporting Lab: [facility] [address] Performing Lab: [facility] [address] GLUCOSE,BLOOD- poct (STL) 151 mg/dL H Aug 15, 2024 07:31 PM [facility] GLUCOSE,BLOOD-poct (STL) Specimen Type: BLOOD Comment: Test Performed by: [id number] Meter #: [id number] Ordering Provider: SILVIA REDDY Report Released Date/Time: Aug 15, 2024 08:07 PM Reporting Lab: [facility] [address] Performing Lab: [facility] [address] GLUCOSE,BLOOD- poct (STL) 173 mg/dL H -Aug 15, 2024 04:18 PM [facility] GLUCOSE,BLOOD-poct (STL) Specimen Type: BLOOD Comment: Test Performed by: [id number] Meter #: [id number] Ordering Provider: SILVIA REDDY Report Released Date/Time: Aug 15, 2024 04:59 PM Reporting Lab: [facility] [address] Performing Lab: [facility] [address] GLUCOSE,BLOOD- poct (STL) 136 mg/dL H -Aug 15, 2024 04:16 PM [facility] GLUCOSE,BLOOD-poct (STL) Specimen Type: BLOOD Comment: Test Performed by: [id number] Meter #: [id number] Ordering Provider: SILVIA REDDY Report Released Date/Time: Aug 15, 2024 04:59 PM Reporting Lab: [facility] [facility] [id number] Performing Lab: [facility] [facility] [phone] GLUCOSE,BLOOD- poct (STL) 194 mg/dL H Aug 15, 2024 11:39 AM [facility] GLUCOSE,BLOOD-poct (STL) Specimen Type: BLOOD Comment: Test Performed by: [id number] Meter #: [id number] Ordering Provider: SILVIA REDDY Report Released Date/Time: Aug 15, 2024 12:00 PM Reporting Lab: [facility] [facility] [phone] Performing Lab: [facility] [facility] [address] GLUCOSE,BLOOD- poct (STL) 127 mg/dL H 72-99 Aug 15, 2024 05:07 AM [facility] GLUCOSE,BLOOD-poct (STL) Specimen Type: BLOOD Comment: Test Performed by: [id number] Meter #: [id number] Ordering Provider: SILVIA REDDY Report Released Date/Time: Aug 15, 2024 06:14 AM Reporting Lab: [facility] #[address] [facility] [phone] Performing Lab: [facility] [facility] [address] GLUCOSE,BLOOD- poct (STL) 151 mg/dL H 72-99 Aug 14, 2024 04:22 PM [facility] GLUCOSE,BLOOD-poct (STL) Specimen Type: BLOOD Comment: Test Performed by: [id number] Meter #: [id number] Ordering Provider: SILVIA REDDY Report Released Date/Time: Aug 14, 2024 04:52 PM Reporting Lab: [facility] #[address] [facility] [phone] Performing Lab: [facility] [facility] [address] GLUCOSE,BLOOD- poct (STL) 129 mg/dL H 72-99 Aug 14, 2024 11:21 AM [facility] GLUCOSE,BLOOD-poct (STL) Specimen Type: BLOOD Comment: Test Performed by: [id number] Meter #: [id number] Ordering Provider: SILVIA REDDY Report Released Date/Time: Aug 14, 2024 11:37 AM Reporting Lab: [facility] [address] [place] [id number] Performing Lab: [facility] #[address] [facility] [phone] GLUCOSE,BLOOD- poct (STL) 135 mg/dL H 72-99 Aug 14, 2024 06:59 AM [facility] QUANTIFERON-TB,4 TUBE Specimen Type: [...] For additional information, please refer to [email or web address] (This link is being provided for information/ educational purposes only.) Test Performed by [facility], [address] [place] [address] Tommie Garcia M.D., Ph.D., Director of Laboratories , [facility] [id number] Ordering Provider: SILVIA REDDY Report Released Date/Time: Aug 11, 2024 03:58 PM Reporting Lab: [facility] [address] [facility] [address] Performing Lab: [facility] [address] [facility] .NIL - QUANTIFERON 0.04 [IU]/mL .MITOGEN-NIL 0.39 [IU]/mL .QUANTIFERON INDETERMINATE NEGATIVE .TB1-NIL <0.00 [IU]/mL .TB2-NIL <0.00 [IU]/mL Aug 14, 2024 06:59 AM [facility] MAGNESIUM Specimen Type: PLASMA Comment: No hemolysis noted. Ordering Provider: SILVIA REDDY Report Released Date/Time: Aug 11, 2024 03:58 PM Reporting Lab: [facility] [facility] [address] Performing Lab: [facility] [address] MAGNESIUM 1.9 mg/dL 1.6-2.6 Aug 14, 2024 06:59 AM [facility] FOLATE (L-MA) Specimen Type: SERUM No comment entered. Ordering Provider: SILVIA REDDY Report Released Date/Time: Aug 11, 2024 03:58 PM Reporting Lab: [facility] [address] Performing Lab: [facility] [address] FOLATE (STL-MA) 6.8 ng/mL L 7-20 Aug 14, 2024 06:59 AM [facility] VITAMIN D, 25-HYDROXY Specimen Type: SERUM No comment entered. Ordering Provider: SILVIA REDDY Report Released Date/Time: Aug 11, 2024 03:58 PM Reporting Lab: [facility] [address] Performing Lab: [facility] [address] VITAMIN D, 25-HYDROXY 8.9 ng/mL L 30-96 Aug 14, 2024 06:59 AM [facility] B12 Specimen Type: SERUM No comment entered. Ordering Provider: SILVIA REDDY Report Released Date/Time: Aug 11, 2024 03:58 PM Reporting Lab: [facility] [address] Performing Lab: [facility]1 [place] [address] B12 757 pg/mL 213-816 Aug 14, 2024 06:59 AM [facility] COMPREHENSIVE METABOLIC PANEL Specimen Type: PLASMA Comment: No hemolysis noted. Ordering Provider: SILVIA REDDY Report Released Date/Time: Aug 11, 2024 03:58 PM Reporting Lab: [facility] [address] Performing Lab: [facility] [address] CREATININE 0.75 mg/dL 0.70-1.30 UREA NITROGEN 13.6 [...] Aug 14, 2024 06:59 AM [facility] CBC Specimen Type: BLOOD No comment entered. Ordering Provider: SILVIA REDDY Report Released Date/Time: Aug 11, 2024 03:58 PM Reporting Lab: [facility] [address] Performing Lab: [facility] [address] WBC 4.1 10*3/uL 3.6-11.2 RBC 3.20 10*6/uL [...] Aug 14, 2024 05:08 AM [facility] GLUCOSE,BLOOD-poct (STL) Specimen Type: BLOOD Comment: Test Performed by: [id number] Meter #: [id number] Ordering Provider: SILVIA REDDY Report Released Date/Time: Aug 14, 2024 05:52 AM Reporting Lab: [facility] [place] [address] Performing Lab: [facility] [place] [address] GLUCOSE,BLOOD- poct (STL) 135 mg/dL H -Aug 13, 2024 04:27 PM [facility] GLUCOSE,BLOOD-poct (STL) Specimen Type: BLOOD Comment: Test Performed by: [id number] Meter #: [id number] Ordering Provider: SILVIA REDDY Report Released Date/Time: Aug 13, 2024 04:41 PM Reporting Lab: [facility] [address] Performing Lab: [facility] [place] [address] GLUCOSE,BLOOD- poct (STL) 181 mg/dL H 74-Aug 13, 2024 11:33 AM [facility] GLUCOSE,BLOOD-poct (STL) Specimen Type: BLOOD Comment: Test Performed by: [id number] Meter #: [id number] Ordering Provider: SILVIA REDDY Report Released Date/Time: Aug 13, 2024 03:55 PM Reporting Lab: [facility] #1 [place] [address] Performing Lab: [facility] #1 [place] [address] GLUCOSE,BLOOD- poct (STL) 140 mg/dL H 72-Aug 13, 2024 05:54 AM [facility] GLUCOSE,BLOOD-poct (STL) Specimen Type: BLOOD Comment: Test Performed by: [id number] Meter #: [id number] Ordering Provider: SILVIA REDDY Report Released Date/Time: Aug 13, 2024 06:20 AM Reporting Lab: [facility] #1 [place] [address] Performing Lab: [facility] #1 [place] [address] GLUCOSE,BLOOD- poct (STL) 112 mg/dL H 74-Aug 12, 2024 04:35 PM [facility] GLUCOSE,BLOOD-poct (STL) Specimen Type: BLOOD Comment: Test Performed by: [id number] Meter #: [id number] Ordering Provider: SILVIA REDDY Report Released Date/Time: Aug 12, 2024 04:47 PM Reporting Lab: [facility] #1 [place] [address] Performing Lab: [facility] #1 [place] [address] GLUCOSE,BLOOD- poct (STL) 128 mg/dL H 72-99 Aug 12, 2024 11:26 AM [facility] GLUCOSE,BLOOD-poct (STL) Specimen Type: BLOOD Comment: Test Performed by: [id number] Meter #: [id number] Ordering Provider: SILVIA REDDY Report Released Date/Time: Aug 12, 2024 11:45 AM Reporting Lab: [facility] [address] Performing Lab: [facility] [facility] [address] GLUCOSE,BLOOD- poct (STL) 188 mg/dL H 72-Aug 12, 2024 06:13 AM [facility] GLUCOSE,BLOOD-poct (STL) Specimen Type: BLOOD Comment: Test Performed by: [id number] Meter #: [id number] Ordering Provider: SILVIA REDDY Report Released Date/Time: Aug 12, 2024 06:25 AM Reporting Lab: [facility] #1 [place] [address] Performing Lab: [facility] #1 [place] [address] GLUCOSE,BLOOD- poct (STL) 116 mg/dL H -Aug 11, 2024 04:10 PM [facility] GLUCOSE,BLOOD-poct (STL) Specimen Type: BLOOD Comment: Test Performed by: [id number] Meter #: [id number] Ordering Provider: SILVIA REDDY Report Released Date/Time: Aug 11, 2024 04:27 PM Reporting Lab: [facility] #1 [place] [address] Performing Lab: [facility] #1 [place] [address] GLUCOSE,BLOOD- poct (STL) 184 mg/dL H -Aug 11, 2024 01:44 PM [facility] MRSA SURVL NARES DNA Specimen [...] Aug 11, 2024 02:03 PM Reporting Lab: [address] [address] Performing Lab: [address] [address] MRSA SURVL NARES DNA Negative Negative Jul 20, 2024 11:18 AM [facility] APTT Specimen Type: PLASMA No comment entered. Ordering Provider: MANUEL BAIRD Report Released Date/Time: Jul 19, 2024 04:00 PM Reporting Lab: [address] [address] Performing Lab: [address] [address] APTT 32.1 s 26.7-39.9 Jul 20, 2024 11:18 AM [facility] PT/INR NEW ([facility]) Specimen Type: PLASMA No comment entered. Ordering Provider: MANUEL BAIRD Report Released Date/Time: Jul 19, 2024 04:00 PM Reporting Lab: [address] [address] Performing Lab: [address] [address] PROTIME 14.4 s H 9.4-12.5 INR VALUE 1.3 {INR} Jul 20, 2024 11:18 AM [facility] CBC Specimen Type: BLOOD No comment entered. Ordering Provider: MANUEL BAIRD Report Released Date/Time: Jul 19, 2024 04:00 PM Reporting Lab: [address] [address] Performing Lab: [address] [address] WBC 4.7 10*3/uL 3.6-11.2 RBC 4.86 10*6/uL [...] 10:34 AM QUIT TOBACCO >7 YEARS AGO [facility] Tobacco Use History This section includes a history of the smoking, or tobacco-related health factors, that were collected on or before the date of the Encounter. The data comes from the [place] facility where the Encounter took place. Date/Time Smoking Status/Tobacco Use Comment Juan acility Sep 30, 2015 10:12 AM QUIT TOBACCO >7 YEARS AGO [facility] Oct 29, 2014 10:23 AM QUIT TOBACCO >7 YEARS AGO [facility] Dec 27, 2013 01:27 PM QUIT TOBACCO >7 YEARS AGO [facility] Feb 24, 2013 02:01 PM LIFETIME NON-USER OF TOBACCO [facility] Feb 11, 2009 10:09 AM QUIT TOBACCO >7 YEARS AGO [facility] Oct 06, 2006 09:30 AM CURRENT NON-TOBACC O USER-HX OF USE [facility] Oct 06, 2006 09:30 AM TOBACCO TERMINATION STAGE [facility] Advance Directives: All historical and current [...] ADVANCE DIRECTIVE DISCUSSION ERICK BARDALES [facility] Encounter Notes: All associated encounter notes This section contains the clinical notes associated to the Encounter. 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: [employer] Implant Date: 08/04/2024 [employer] Sprint Quattro Secure 62cm Tripolar Screw In Extendable 3525T55 Model/Cat number: [id number] Serial number: [id number] [employer] ATTAIN STABILITY QUAD MRI SURESCAN ACTIVE FIXATION LV LEAD 88CM [id number] Model/Cat number: [id number] Serial number: [id number] Furniture Builder: [employer] Implant Date: 08/04/2024 [employer] Capsurefix Novus 6.2fr 2mm 52cm Bipolar Screw In Implantable Latex Free 5076-52 Model/Cat number: [id number] Serial number: [id number] Furniture Builder: [employer] Implant Date: 08/04/2024 /shen/ JOSE SIERRA NP CARDIOLOGY/ELECTROPHYSIOLOGY DRILLING MACHINE RUNNER Signed: 08/18/2024 16:05 Receipt Acknowledged By: 08/23/2024 11:40 /es/ CHARITY BENITEZ HOTEL SERVICE MANAGER --- Original Document --- 08/18/24 CARDIOLOGY OUTPATIENT FOLLOW UP STL: Cardiology Outpatient Note [facility] CARDIOLOGY SERVICE: CARDIOLOGY NOTE REASON FOR VISIT:f/u CAD S/P bypass x3 with CHB now with LABORER TANBARK-D HPI: [place] Lee is a 74-year-old male who comes today for cardiology follow-up he has a pertinent medical history of coronary arterial disease now status post bypass x 3 BURGESS to LAD, right radial to OM, and SVG to PDA. He developed complete heart block and ejection fraction went down from 40 to 45% to 20 to 25% and he received LABORER TANBARK D he also has a pertinent medical history of hypertension, hyperlipidemia, diabetic type II, and obstructive sleep apnea. He is currently in rehab at [facility] and presents today on stretcher Today reports he can breathe, he is at to get his strength back. He tells me the plan is that he will go back home on Wednesday finishing up physical therapy and Occupational Therapy. He denies chest pain, reports he is weak but getting stronger, again denies shortness of breath, denies lower leg swelling, denies fever states he is healing well at his incisions, still has the Steri-Strips over his device incision. Social hx: Denies smoking, alcohol use, denies recreational drug use Family hx: Non contributory ROS: 11 point review of systems completed with all pertinent information placed in HPI ACTIVE PROBLEMS:1) Asthma (SNOMED CT 222479797) 2) Gastro-esophageal reflux disease (SNOMED CT 514008215) 3) Peptic Ulcer Disease * (ICD-9-CM 533.90) 4) Hypertension (SNOMED CT 40161670) 5) Neoplasm of pituitary gland (SNOMED CT 679404617) 6) Hyperlipidemia (SNOMED CT 97488251) 7) Erectile dysfunction associated with type 2 [...] grafting 21) Obstructive Sleep Apnea of Adult ([facility] [id number]) ALLERGIES:TRAMADOL ACTIVE MEDICATIONS:Active and Recently Outpatient Medications (including Supplies): Active Outpatient Medications [...] 10) GLUCOSE SENSOR FREESTYLE RADHIKA 3 PLUS USE SENSOR ACTIVE EVERY 15 DAYS FOR BLOOD SUGAR MONITORING CHANGE SENSOR/SITE EVERY 15 DAYS. TO REPLACE SENSOR FOR ANY REASON OR FOR TECHNICAL HELP PLEASE CALL [facility] HELP DESK: -SPECIFIC PHONE NUMBER: [phone]). 11) INSULIN,ASPART(EQV-NOVLG)100UN/M L FLXPEN INJECT 6 ACTIVE [...] *HIGH DOSE INSULIN* 13) MELOXICAM 7.5MG TAB TAKE ONE TABLET [...] TO FOOD. 19) SACUBITRIL 24MG/VALSARTAN 26MG TAB TAKE 1 TABLET BY ACTIVE MOUTH TWICE A DAY FOR HEART FAILURE 20) SEMAGLUTIDE 1MG/0.75ML INJ PEN 3ML INJECT 1MG UNDER ACTIVE THE SKIN EVERY WEEK FOR DIABETES 21) TRANSPARENT DRESSING 2 3/8IN X 2 3/4IN USE/APPLY ACTIVE DRESSING(S) TO AFFECTED AREA(S) TWO TIMES PER WEEK FOR WOUND CARE Inactive Outpatient Medications Status ========= 1) PREGABALIN 200MG ORAL CAP TAKE ONE CAPSULE BY MOUTH TWICE A DAY Active Non-VA Medications Status ========= 1) Non-VA NAPROXEN NA 220MG TAB 220MG BY MOUTH ACTIVE NEEDED 23 Total Medications All cardiac medications listed above were reconciled during the visit ECHO:06/29/2024 Conclusion 1. Global systolic function: Overall left ventricular systolic function is mildly impaired with an estimated ejection fraction of 45 - 50%. 2. Regional systolic function: Wall motion: Hypokinesis in basal inferior and basal inferolateral cueva. The remaining left ventricular segments contract normally. 3. Normal right ventricular size and systolic function. 4. The left atrium is mildly enlarged. 5. Sagc-qz-ftiuxhpi mitral regurgitation. 6. No other hemodynamically significant valvular abnormality. 7. Bubble study is negative for right to left shunt. 8. No evidence of intracardiac thrombus. June 19, 2024 CORONARY ANGIOGRAPHY [facility] [place] Vessels Summary: 3 vessel CAD Dominance: Right [...] type I Mobitz block with bifascicular block. LAST LABS: TSH: TSH 3.510 uIU/mL 06/05/2024 09:00 TRIGLYCERIDE 145 mg/dL 04/07/2024 11:40 CHOLESTEROL 180 mg/dL 04/07/2024 11:40 HDL(New) 34 L mg/dL 04/07/2024 11:40 CALCULATED LDL 117 mg/dL 04/07/2024 11:40 HGA1C 7.0 H % 03/06/2024 09:52 Comprehensive Metabolic Panel Results: SODIUM 134 L mEq/L 08/14/2024 06:00 POTASSIUM [...] % 07/20/2024 11:18 TEARDROPS 1+ 04/07/2024 11:40 PHYSICAL ASSESSMENT GENERAL: well-mannered, well-groomed 74 yo male NECK: no JVD, no carotid bruit CARDIO: RRR, S1S2 present, no murmur PULM: LSCB, no cough, rales or wheeze ABDOMEN: nondistended, nontender and soft EXTREMITIES: 2+ post tibial pulses, with no edema NEUROLOGIC: AAOx3, normal motor strength PSYCHIATRIC: affect and mood normal VITALS: 70 in [177.8 cm] (06/29/2024 12:58) 211.9 lb [96.12 kg] (08/13/2024 10:48) Temperature: 97.7 F [36.5 C] (08/18/2024 10:16) Blood Pressure: 133/79 (08/18/2024 10:16) Pulse: 79 (08/18/2024 10:16) Respirations: 18 (08/18/2024 10:16) ECG:-Vpaced ASSESSMENT AND PLAN 1.CAD s/p bypass on July 24, 2024 he received BURGESS to LAD, left radial to OM, SVG to PDA and sternal plating Medications have been adjusted now on Coreg 3.125 mg twice daily, Imdur 15 mg daily atorvastatin 80 mg daily 2. complete heart block LVEF 26% now with CRTD, we will need to get his information old and national surveillance. Will ask device team to assist 3. ICM LVEF 40-50% preop with RV dysfunction TTE 08/03/2024 with LVEF of 26% and likely normal RV Will obtain repeat echo at next visit. question if depressed EF was due to complete heart block 4. Mitral regurgitation moderate preoperative, TTE on 08-03-2024 moderate MR, again repeat echo next month 5. Hypertension controlled today at 133/79 on Coreg and Imdur 6. Diabetes type 2 his medications have been adjusted, was on insulin, not using that a CINTIA 7. question cardiac rehab at next visit RTC next month Spent 40 min reviewing records/labs/obtaining history/examining patient/ordering labs, tests, medications/discussing results and plan with patient and/or outside provider. All patients are counseled on the risks of smoking at every visit including patients with no history of smoking in order to dissuade them from starting the use of tobacco products; former smokers to minimize recidivism of nicotine dependence: and current smokers in an effort to help them cease the use of nicotine products. Where relevant [age between 50-60-years and history of smoking], we and/or the PCP will obtain an abdominal ultrasound to screen for the possibility of an abdominal aortic aneurysm and ABIs to screen for occult PAD. When completed, the results will be found in [facility]. # HEALTH PROMOTION/HEALTH MAINTENANCE & EDUCATION DISEASE: Discussed treatment options & counseled on exacerbating factors. # DIAGNOSTIC TESTING AND LABORATORY DATA: Pertinent labs and diagnostic tests (both normal and abnormal) are included above and were reviewed and discussed with the patient within 7-days of the test and during this visit. - DISEASE: Coordinated care; discussed treatment options, & counseled on exacerbating factors. - Encouraged participation in regular exercise program 3-5 days/week - Maximize risk factor reduction & lifestyle modifications i.e. BP <130/80 and LDL goal <70 - Discussed at length about lifestyle modifications in regard to diet, exercise, and medication compliance. -Assessed smoking habits and whether actively using tobacco products or a past history of nicotine dependence, smoking cessation strategies were reinforced. - In patients with a history of CHF, LEROY/ARB use is considered and held when contraindications such as allergies, renal function preclude use. If not mentioned in the above note, these assessments are detailed in prior cardiology notes. The patient verbalized understanding of information regarding: labs, meds, and plans for care. Reinforcement is indicated. # MEDICATION RECONCILIATION: - All cardiac medications were reconciled during the visit. - All patients with an EF </= 40% are considered for Leroy inhibitors or ARBs except when contraindicated due to intolerance/allergy, hypotension, or renal disease. Documentation is found in the historical record if not repeated in this note. - All patients with an EF </= 40% are considered for beta blockers and aspirin, contraindicated due to intolerance/allergy, hypotension, bradycardia, or bleeding risk. Documentation is found in the historical record if not repeated in this note. - Anticoagulation therapy was discussed with all patients in the setting of atrial flutter/fibrillation and held in cases where the complications of bleeding (e.g., fall risk) outweighs the risk of stroke. All patients on anticoagulation medications are counseled on bleeding risks and the warning signs of a stroke or TIA. - Except where mentioned or restricted, the PCP may renew the cardiac medications. - Other listed profile meds will continue as directed by the PCP (primary provider). Thank you for allowing me to participate in this patient's care. Please don't hesitate to call with any questions or concerns.Life Sustaining Treatment Orders Cohort: Reminder Term: [facility]-LIFE SUSTAINING TREATMENT ORDERABLE ITEMS Orderable Item: LST FULL CODE 08/17/2024@15:37 Status: active, Start date: 08/17/2024@15:37, Stop date: missing Duration: 1 D /shen/ JOSE SIERRA DRILLING MACHINE RUNNER CARDIOLOGY/ELECTROPHYSIOLOGY DRILLING MACHINE RUNNER Signed: 08/18/2024 15:58 JOSE SIERRA [facility] Aug 18, 2024 12:27 PM CARDIOLOGY OUTPATIENT NOTE: LOCAL TITLE: CARDIOLOGY OUTPATIENT FOLLOW UP ST STANDARD TITLE: CARDIOLOGY OUTPATIENT NOTE DATE OF NOTE: AUG 18, 2024@12:27 ENTRY DATE: AUG 18, 2024@12:27:55 AUTHOR: JOSE SIERRA EXP COSIGNER: URGENCY: STATUS: COMPLETED CARDIOLOGY OUTPATIENT FOLLOW UP ST Has ADDENDA Cardiology Outpatient Note [facility] CARDIOLOGY SERVICE: CARDIOLOGY NOTE REASON FOR VISIT:f/u CAD S/P bypass x3 with CHB now with LABORER TANBARK-D HPI: Lee is a 74-year-old male who comes today for cardiology follow-up he has a pertinent medical history of coronary arterial disease now status post bypass x 3 BURGESS to LAD, right radial to OM, and SVG to PDA. He developed complete heart block and ejection fraction went down from 40 to 45% to 20 to 25% and he received LABORER TANBARK D he also has a pertinent medical history of hypertension, hyperlipidemia, diabetic type II, and obstructive sleep apnea. He is currently in rehab at [facility] and presents today on stretcher Today reports he can breathe, he is at to get his strength back. He tells me the plan is that he will go back home on Wednesday finishing up physical therapy and Occupational Therapy. He denies chest pain, reports he is weak but getting stronger, again denies shortness of breath, denies lower leg swelling, denies fever states he is healing well at his incisions, still has the Steri-Strips over his device incision. Social hx: Denies smoking, alcohol use, denies recreational drug use Family hx: Non contributory ROS: 11 point review of systems completed with all pertinent information placed in HPI ACTIVE PROBLEMS:1) Asthma (SNOMED CT 964905743) 2) Gastro-esophageal reflux disease (SNOMED CT 636833325) 3) Peptic Ulcer Disease * (ICD-9-CM 533.90) 4) Hypertension (SNOMED CT 77389400) 5) Neoplasm of pituitary gland (SNOMED CT 194903000) 6) Hyperlipidemia (SNOMED CT 48978277) 7) Erectile dysfunction associated with type 2 [...] grafting 21) Obstructive Sleep Apnea of Adult ([facility] [id number]) ALLERGIES:TRAMADOL ACTIVE MEDICATIONS:Active and Recently Outpatient Medications (including Supplies): Active Outpatient Medications [...] 10) GLUCOSE SENSOR FREESTYLE RADHIKA 3 PLUS USE SENSOR ACTIVE EVERY 15 DAYS FOR BLOOD SUGAR MONITORING CHANGE SENSOR/SITE EVERY 15 DAYS. TO REPLACE SENSOR FOR ANY REASON OR FOR TECHNICAL HELP PLEASE CALL CANDDi DESK: -SPECIFIC PHONE NUMBER: [phone]). 11) INSULIN,ASPART(EQV-NOVLG)100UN/M L FLXPEN INJECT 6 ACTIVE [...] *HIGH DOSE INSULIN* 13) MELOXICAM 7.5MG TAB TAKE ONE TABLET [...] TO FOOD. 19) SACUBITRIL 24MG/VALSARTAN 26MG TAB TAKE 1 TABLET BY ACTIVE MOUTH TWICE A DAY FOR HEART FAILURE 20) SEMAGLUTIDE 1MG/0.75ML INJ PEN 3ML INJECT 1MG UNDER ACTIVE THE SKIN EVERY WEEK FOR DIABETES 21) TRANSPARENT DRESSING 2 3/8IN X 2 3/4IN USE/APPLY ACTIVE DRESSING(S) TO AFFECTED AREA(S) TWO TIMES PER WEEK FOR WOUND CARE Inactive Outpatient Medications Status ========= 1) PREGABALIN 200MG ORAL CAP TAKE ONE CAPSULE BY MOUTH TWICE A DAY Active Non-VA Medications Status ========= 1) Non-VA NAPROXEN NA 220MG TAB 220MG BY MOUTH ACTIVE NEEDED 23 Total Medications All cardiac medications listed above were reconciled during the visit ECHO:06/29/2024 Conclusion 1. Global systolic function: Overall left ventricular systolic function is mildly impaired with an estimated ejection fraction of 45 - 50%. 2. Regional systolic function: Wall motion: Hypokinesis in basal inferior and basal inferolateral cueva. The remaining left ventricular segments contract normally. 3. Normal right ventricular size and systolic function. 4. The left atrium is mildly enlarged. 5. Pxpe-in-faxupwhr mitral regurgitation. 6. No other hemodynamically significant valvular abnormality. 7. Bubble study is negative for right to left shunt. 8. No evidence of intracardiac thrombus. June 19, 2024 CORONARY ANGIOGRAPHY [facility] [place] Vessels Summary: 3 vessel CAD Dominance: Right [...] type I Mobitz block with bifascicular block. LAST LABS: TSH: TSH 3.510 uIU/mL 06/05/2024 09:00 TRIGLYCERIDE 145 mg/dL 04/07/2024 11:40 CHOLESTEROL 180 mg/dL 04/07/2024 11:40 HDL(New) 34 L mg/dL 04/07/2024 11:40 CALCULATED LDL 117 mg/dL 04/07/2024 11:40 HGA1C 7.0 H % 03/06/2024 09:52 Comprehensive Metabolic Panel Results: SODIUM 134 L mEq/L 08/14/2024 06:00 POTASSIUM [...] % 07/20/2024 11:18 TEARDROPS 1+ 04/07/2024 11:40 PHYSICAL ASSESSMENT GENERAL: well-mannered, well-groomed 74 yo male NECK: no JVD, no carotid bruit CARDIO: RRR, S1S2 present, no murmur PULM: LSCB, no cough, rales or wheeze ABDOMEN: nondistended, nontender and soft EXTREMITIES: 2+ post tibial pulses, with no edema NEUROLOGIC: AAOx3, normal motor strength PSYCHIATRIC: affect and mood normal VITALS: 70 in [177.8 cm] (06/29/2024 12:58) 211.9 lb [96.12 kg] (08/13/2024 10:48) Temperature: 97.7 F [36.5 C] (08/18/2024 10:16) Blood Pressure: 133/79 (08/18/2024 10:16) Pulse: 79 (08/18/2024 10:16) Respirations: 18 (08/18/2024 10:16) ECG:-Vpaced ASSESSMENT AND PLAN 1.CAD s/p bypass on July 24, 2024 he received BURGESS to LAD, left radial to OM, SVG to PDA and sternal plating Medications have been adjusted now on Coreg 3.125 mg twice daily, Imdur 15 mg daily atorvastatin 80 mg daily 2. complete heart block LVEF 26% now with CRTD, we will need to get his information old and national surveillance. Will ask device team to assist 3. ICM LVEF 40-50% preop with RV dysfunction TTE 08/03/2024 with LVEF of 26% and likely normal RV Will obtain repeat echo at next visit. question if depressed EF was due to complete heart block 4. Mitral regurgitation moderate preoperative, TTE on 08-03-2024 moderate MR, again repeat echo next month 5. Hypertension controlled today at 133/79 on Coreg and Imdur 6. Diabetes type 2 his medications have been adjusted, was on insulin, not using that a CINTIA 7. question cardiac rehab at next visit RTC next month Spent 40 min reviewing records/labs/obtaining history/examining patient/ordering labs, tests, medications/discussing results and plan with patient and/or outside provider. All patients are counseled on the risks of smoking at every visit including patients with no history of smoking in order to dissuade them from starting the use of tobacco products; former smokers to minimize recidivism of nicotine dependence: and current smokers in an effort to help them cease the use of nicotine products. Where relevant [age between 50-60-years and history of smoking], we and/or the PCP will obtain an abdominal ultrasound to screen for the possibility of an abdominal aortic aneurysm and ABIs to screen for occult PAD. When completed, the results will be found in [facility]. # HEALTH PROMOTION/HEALTH MAINTENANCE & EDUCATION DISEASE: Discussed treatment options & counseled on exacerbating factors. # DIAGNOSTIC TESTING AND LABORATORY DATA: Pertinent labs and diagnostic tests (both normal and abnormal) are included above and were reviewed and discussed with the patient within 7-days of the test and during this visit. - DISEASE: Coordinated care; discussed treatment options, & counseled on exacerbating factors. - Encouraged participation in regular exercise program 3-5 days/week - Maximize risk factor reduction & lifestyle modifications i.e. BP <130/80 and LDL goal <70 - Discussed at length about lifestyle modifications in regard to diet, exercise, and medication compliance. -Assessed smoking habits and whether actively using tobacco products or a past history of nicotine dependence, smoking cessation strategies were reinforced. - In patients with a history of CHF, LEROY/ARB use is considered and held when contraindications such as allergies, renal function preclude use. If not mentioned in the above note, these assessments are detailed in prior cardiology notes. The patient verbalized understanding of information regarding: labs, meds, and plans for care. Reinforcement is indicated. # MEDICATION RECONCILIATION: - All cardiac medications were reconciled during the visit. - All patients with an EF </= 40% are considered for Leroy inhibitors or ARBs except when contraindicated due to intolerance/allergy, hypotension, or renal disease. Documentation is found in the historical record if not repeated in this note. - All patients with an EF </= 40% are considered for beta blockers and aspirin, contraindicated due to intolerance/allergy, hypotension, bradycardia, or bleeding risk. Documentation is found in the historical record if not repeated in this note. - Anticoagulation therapy was discussed with all patients in the setting of atrial flutter/fibrillation and held in cases where the complications of bleeding (e.g., fall risk) outweighs the risk of stroke. All patients on anticoagulation medications are counseled on bleeding risks and the warning signs of a stroke or TIA. - Except where mentioned or restricted, the PCP may renew the cardiac medications. - Other listed profile meds will continue as directed by the PCP (primary provider). Thank you for allowing me to participate in this patient's care. Please don't hesitate to call with any questions or concerns.Life Sustaining Treatment Orders Cohort: Reminder Term: [facility]LIFE SUSTAINING TREATMENT ORDERABLE ITEMS Orderable Item: LST FULL CODE 08/17/2024@15:37 Status: active, Start date: 08/17/2024@15:37, Stop date: missing Duration: 1 D /shen/ JOSE [employer]LLING MACHINE RUNNER CARDIOLOGY/ELECTROPHYSIOLOGY DRILLING MACHINE RUNNER Signed: 08/18/2024 15:58 08/18/2024 ADDENDUM STATUS: COMPLETED [employer] CARDIAC COBALT HF 2 CHAMBER DF4 INLINE CNCTR IS4 [id number] Model/Cat number: [id number] Serial number: [id number] Furniture Builder: [employer] Implant Date: 08/04/2024 [employer] Sprint Quattro Secure 62cm Tripolar Screw In Extendable [id number] Model/Cat number: [id number] Serial number: [id number] [employer] ATTAIN STABILITY QUAD MRI SURESCAN ACTIVE FIXATION LV LEAD 88CM [id number] Model/Cat number: [id number] Serial number: [id number] Furniture Builder: [employer] Implant Date: 08/04/2024 [employer] Capsurefix Novus 6.2fr 2mm 52cm Bipolar Screw In Implantable Latex Free 5076-52 Model/Cat number: [id number] Serial number: [id number] Furniture Builder: [employer] Implant Date: 08/04/2024 /camryn [employer]LL[employer]ACH[employer] RUNNER CARDIOLOGY/ELECTROPHYSIOLOGY DRILLING MACHINE RUNNER Signed: 08/18/2024 16:05 Receipt Acknowledged By: * AWAITING SIGNATURE * CHARITY BENITEZ [facility]
--- OUTSIDE RECORDS SUMMARY | 2024-11-17 04:17 | XMS_ITS ---
IN DAILY HOSPITALIZATION DATA [facility] Encounter Summary Created on: November 16, 2024 CHET WALKER : 1950 Sex: Male Author Name [facility] [place] [facility] [place] Address [address] [place] [address] Care Team Providers Care Stream Control Officer Name Role Phone MANUEL BAIRD Primary [...] PART A Apr 08, 2017 PART A [id number] ASHLEY WALKER PATIENT Selected Encounter This section includes the information on record at [place] for the Encounter. Date/Time Encounter Type Encounter Description Reason Pro vider Source Aug 18, 2024 07:20 PM Inpatient Visit DAILY HOSPITALIZATION DATA [facility] Encounter Template Text not used by [place] Plan of Treatment: Future Appointments (+ 6 [...] data comes from all [facility]. Appointment Date/Time Appointment Type Appointme nt Facility Name Aug 24, 2024 10:00 AM AMBULATORY - MEDICINE [facility] Aug 24, 2024 10:30 AM AMBULATORY - MEDICINE [facility] Aug 30, 2024 09:[address] [facility] Aug 31, 2024 01:00 PM AMBULATORY - SURGERY [facility] Sep 21, 2024 01:30 PM AMBULATORY - MEDICINE [facility] Sep 22, 2024 11:00 AM AMBULATORY - MEDICINE [facility] Sep 29, 2024 12:30 PM AMBULATORY - MEDICINE [facility] Oct 02, 2024 09:30 AM AMBULATORY - MEDICINE [facility] Nov 20, 2024 10:30 AM AMBULATORY - SUR[facility]ERY [facility] Nov 21, 2024 10:00 AM AMBULATORY - NONE [facility] Dec 11, 2024 10:30 AM AMBULATORY - MEDICINE [facility] Active, Pending, and Scheduled Orders This [...] data comes from all [facility]. Test Date/Time Test Type Test Details Facility Name Aug 02, 2024 12:00 AM Laboratory - Chemistry Order CBC BLOOD STAT SP [facility] Aug 02, 2024 12:00 AM Laboratory - Chemistry Order COMPREHENSIVE METABOLIC PANEL GREEN LI/HEP BLD/PLAS PLASMA SP [facility] Aug 17, 2024 03:47 PM Consult Order [facility] Cons Bedside [facility] Lab Results: +/- [...] Range Comment Aug 23, 2024 08:21 AM [facility] MAGNESIUM Specimen Type: PLASMA No comment entered. Ordering Provider: SILVIA REDDY Report Released Date/Time: Aug 22, 2024 11:26 AM Reporting Lab: [facility] [address] Performing Lab: [facility] [address] MAGNESIUM 1.8 mg/dL 1.6-2.6 Aug 23, 2024 08:21 AM [facility] CBC Specimen Type: BLOOD No comment entered. Ordering Provider: SILVIA REDDY Report Released Date/Time: Aug 22, 2024 11:19 AM Reporting Lab: [facility] [address] Performing Lab: [facility] [address] WBC 4.0 10*3/uL 3.6-11.2 RBC 3.65 10*6/uL [...] 23, 2024 05:12 AM [facility] GLUCOSE,BLOOD-poct (STL) Specimen Type: BLOOD Comment: Test Performed by: [id number] Meter #: [id number] Ordering Provider: SILVIA REDDY Report Released Date/Time: Aug 23, 2024 05:23 AM Reporting Lab: [facility] [address] Performing Lab: [facility] [address] [facility] [address] GLUCOSE,BLOOD- poct (STL) 99 mg/dL 72-99 Aug 23, 2024 02:45 AM [facility] OCCULT BLOOD FIT X1 SCREEN Specimen Type: FECES No comment entered. Ordering Provider: SILVIA REDDY Report Released Date/Time: Aug 22, 2024 11:23 AM Reporting Lab: [address] [address] Performing Lab: [address] [address] OCCULT BLOOD (FIT) #1 OF 1 Negative Negative Aug 22, 2024 07:30 PM [facility] OCCULT BLOOD FIT X1 SCREEN Specimen Type: FECES No comment entered. Ordering Provider: SILVIA REDDY Report Released Date/Time: Aug 22, 2024 11:23 AM Reporting Lab: [address] [address] Performing Lab: [address] [address] OCCULT BLOOD (FIT) #1 OF 1 Negative Negative Aug 22, 2024 06:15 PM [facility] OCCULT BLOOD FIT X1 SCREEN Specimen Type: FECES No comment entered. Ordering Provider: SILVIA REDDY Report Released Date/Time: Aug 22, 2024 11:23 AM Reporting Lab: [address] [address] Performing Lab: [facility] [address] [facility] [address] OCCULT BLOOD (FIT) #1 OF 1 Negative Negative Aug 22, 2024 04:24 PM [facility] GLUCOSE,BLOOD-poct (STL) Specimen Type: BLOOD Comment: Test Performed by: [id number] Meter #: [id number] Ordering Provider: SILVIA REDDY Report Released Date/Time: Aug 22, 2024 04:36 PM Reporting Lab: [facility] [address] Performing Lab: [facility] [address] [facility] [address] GLUCOSE,BLOOD- poct (STL) 176 mg/dL H -Aug 22, 2024 04:23 PM [facility] GLUCOSE,BLOOD-poct (STL) Specimen Type: BLOOD Comment: Test Performed by: [id number] Meter #: [id number] Ordering Provider: SILVIA REDDY Report Released Date/Time: Aug 22, 2024 04:36 PM Reporting Lab: [facility] [address] Performing Lab: [facility] [address] GLUCOSE,BLOOD- poct (STL) 221 mg/dL H 72-Aug 22, 2024 11:15 AM [facility] GLUCOSE,BLOOD-poct (STL) Specimen Type: BLOOD Comment: Test Performed by: [id number] Meter #: [id number] Ordering Provider: SILVIA REDDY Report Released Date/Time: Aug 22, 2024 11:27 AM Reporting Lab: [facility] [address] Performing Lab: [facility] [address] GLUCOSE,BLOOD- poct (STL) 140 mg/dL H 72-Aug 22, 2024 08:03 AM [facility] FERRITIN Specimen Type: SERUM No comment entered. Ordering Provider: JUDIT PERKINS Report Released Date/Time: Aug 18, 2024 11:01 AM Reporting Lab: [facility] [address] [facility] [address] Performing Lab: [facility] [address] [facility] [address] FERRITIN 79.50 ng/mL 22-275 Aug 22, 2024 08:03 AM [facility] IRON/TIBC PROFILE Specimen Type: SERUM No comment entered. Ordering Provider: JUDIT PERKINS Report Released Date/Time: Aug 18, 2024 11:01 AM Reporting Lab: [address] [address] Performing Lab: [address] [address] TIBC 283 ug/dL 250-450 TRANSFERRIN 226 mg/dL 163-344 IRON SATURATION 7 L 20-50 IRON 19 ug/dL L 65-175 Aug 22, 2024 08:03 AM [facility] B12 Specimen Type: SERUM No comment entered. Ordering Provider: JUDIT PERKINS Report Released Date/Time: Aug 18, 2024 11:01 AM Reporting Lab: [facility] [address] Performing Lab: [facility] [facility] [address] B12 631 pg/mL 213-816 Aug 22, 2024 08:03 AM [facility] COMPREHENSIVE METABOLIC PANEL Specimen Type: PLASMA Comment: No hemolysis noted. Ordering Provider: SILVIA REDDY Report Released Date/Time: Aug 17, 2024 01:18 PM Reporting Lab: [facility] [address] [facility] [address] Performing Lab: [address] [address] CREATININE 0.80 mg/dL 0.7-1.3 UREA NITROGEN 9.7 [...] >60 Aug 22, 2024 08:03 AM [facility] CBC Specimen Type: BLOOD No comment entered. Ordering Provider: SILVIA REDDY Report Released Date/Time: Aug 17, 2024 01:18 PM Reporting Lab: [facility] [address] Performing Lab: [facility] [address] WBC 3.5 10*3/uL L 3.6-11.2 RBC 3.23 [...] 22, 2024 05:03 AM [facility] GLUCOSE,BLOOD-poct (STL) Specimen Type: BLOOD Comment: Test Performed by: [id number] Meter #: [id number] Ordering Provider: SILVIA REDDY Report Released Date/Time: Aug 22, 2024 06:17 AM Reporting Lab: [facility] [facility] [address] Performing Lab: [facility] [facility] [address] GLUCOSE,BLOOD- poct (STL) 170 mg/dL H 72-Aug 21, 2024 04:32 PM [facility] GLUCOSE,BLOOD-poct (STL) Specimen Type: BLOOD Comment: Test Performed by: [id number] Meter #: [id number] Ordering Provider: SILVIA REDDY Report Released Date/Time: Aug 21, 2024 04:49 PM Reporting Lab: [facility] [address] Performing Lab: [facility] [facility] [address] GLUCOSE,BLOOD- poct (STL) 169 mg/dL H -99 Aug 21, 2024 11:53 AM [facility] GLUCOSE,BLOOD-poct (STL) Specimen Type: BLOOD Comment: Test Performed by: [id number] Meter #: [id number] Ordering Provider: SILVIA REDDY Report Released Date/Time: Aug 21, 2024 12:11 PM Reporting Lab: [facility] [facility] [address] Performing Lab: [facility] [address] GLUCOSE,BLOOD- poct (STL) 149 mg/dL H 72-99 Aug 21, 2024 05:10 AM [facility] GLUCOSE,BLOOD-poct (STL) Specimen Type: BLOOD Comment: Test Performed by: [id number] Meter #: [id number] Ordering Provider: SILVIA REDDY Report Released Date/Time: Aug 21, 2024 05:27 AM Reporting Lab: [facility] [place] [address] Performing Lab: [facility] [address] [place] [phone] GLUCOSE,BLOOD- poct (STL) 118 mg/dL H 72-99 Aug 20, 2024 04:38 PM [facility] GLUCOSE,BLOOD-poct (STL) Specimen Type: BLOOD Comment: Test Performed by: [id number] Meter #: [id number] Ordering Provider: SILVIA REDDY Report Released Date/Time: Aug 21, 2024 01:55 AM Reporting Lab: [facility] [place] [address] Performing Lab: [facility] [address] [place] [address] GLUCOSE,BLOOD- poct (STL) 169 mg/dL H 72-Aug 20, 2024 04:36 PM [facility] GLUCOSE,BLOOD-poct (STL) Specimen Type: BLOOD Comment: Test Performed by: [id number] Meter #: [id number] Ordering Provider: SILVIA REDDY Report Released Date/Time: Aug 21, 2024 01:55 AM Reporting Lab: [facility] [place] [address] Performing Lab: [facility] [place] [address] GLUCOSE,BLOOD- poct (STL) 395 mg/dL H 72-99 Aug 20, 2024 11:45 AM [facility] GLUCOSE,BLOOD-poct (STL) Specimen Type: BLOOD Comment: Test Performed by: [id number] Meter #: [id number] Ordering Provider: SILVIA REDDY Report Released Date/Time: Aug 20, 2024 11:56 AM Reporting Lab: [facility] [address] Performing Lab: [facility] [facility] [address] GLUCOSE,BLOOD- poct (STL) 169 mg/dL H 72-Aug 20, 2024 05:06 AM [facility] GLUCOSE,BLOOD-poct (STL) Specimen Type: BLOOD Comment: Test Performed by: [id number] Meter #: [id number] Ordering Provider: SILVIA REDDY Report Released Date/Time: Aug 20, 2024 06:05 AM Reporting Lab: [facility] [facility] [address] Performing Lab: [facility] [facility] [address] GLUCOSE,BLOOD- poct (STL) 115 mg/dL H 72-Aug 19, 2024 04:23 PM [facility] GLUCOSE,BLOOD-poct (STL) Specimen Type: BLOOD Comment: Test Performed by: [id number] Meter #: [id number] Ordering Provider: SILVIA REDDY Report Released Date/Time: Aug 19, 2024 05:54 PM Reporting Lab: [facility] [facility] [address] Performing Lab: [facility] [facility] [address] GLUCOSE,BLOOD- poct (STL) 137 mg/dL H 72-99 Aug 19, 2024 11:28 AM [facility] GLUCOSE,BLOOD-poct (STL) Specimen Type: BLOOD Comment: Test Performed by: [id number] Meter #: [id number] Ordering Provider: SILVIA REDDY Report Released Date/Time: Aug 19, 2024 11:51 AM Reporting Lab: [facility] [facility] [address] Performing Lab: [facility] [facility] [address] GLUCOSE,BLOOD- poct (STL) 190 mg/dL H 72-99 Aug 19, 2024 05:21 AM [facility] GLUCOSE,BLOOD-poct (STL) Specimen Type: BLOOD Comment: Test Performed by: [id number] Meter #: [id number] Ordering Provider: SILVIA REDDY Report Released Date/Time: Aug 19, 2024 05:56 AM Reporting Lab: [facility] [facility] [address] Performing Lab: [facility] [facility] [address] GLUCOSE,BLOOD- poct (STL) 130 mg/dL H Aug 18, 2024 04:49 PM [facility] GLUCOSE,BLOOD-poct (STL) Specimen Type: BLOOD Comment: Test Performed by: [id number] Meter #: [id number] Ordering Provider: SILVIA REDDY Report Released Date/Time: Aug 18, 2024 05:01 PM Reporting Lab: [facility] [address] Performing Lab: [facility] [address] GLUCOSE,BLOOD- poct (STL) 129 mg/dL H Aug 18, 2024 11:23 AM [facility] GLUCOSE,BLOOD-poct (STL) Specimen Type: BLOOD Comment: Test Performed by: [id number] Meter #: [id number] Ordering Provider: SILVIA REDDY Report Released Date/Time: Aug 18, 2024 11:41 AM Reporting Lab: [facility] [facility] [address] Performing Lab: [facility] [facility] [address] GLUCOSE,BLOOD- poct (STL) 180 mg/dL H Aug 18, 2024 05:08 AM [facility] GLUCOSE,BLOOD-poct (STL) Specimen Type: BLOOD Comment: Test Performed by: [id number] Meter #: [id number] Ordering Provider: SILVIA REDDY Report Released Date/Time: Aug 18, 2024 05:31 AM Reporting Lab: [facility] [place] [address] Performing Lab: [facility] [facility] [address] GLUCOSE,BLOOD- poct (STL) 127 mg/dL H -Aug 17, 2024 07:32 PM [facility] GLUCOSE,BLOOD-poct (STL) Specimen Type: BLOOD Comment: Test Performed by: [id number] Meter #: [id number] Ordering Provider: SILVIA REDDY Report Released Date/Time: Aug 17, 2024 07:59 PM Reporting Lab: [facility] [place] [address] Performing Lab: [facility] [place] [address] GLUCOSE,BLOOD- poct (STL) 154 mg/dL H -Aug 17, 2024 04:24 PM [facility] GLUCOSE,BLOOD-poct (STL) Specimen Type: BLOOD Comment: Test Performed by: [id number] Meter #: [id number] Ordering Provider: SILVIA REDDY Report Released Date/Time: Aug 17, 2024 04:35 PM Reporting Lab: [facility] [place] [address] Performing Lab: [facility] [place] [address] GLUCOSE,BLOOD- poct (STL) 178 mg/dL H -Aug 17, 2024 05:09 AM [facility] GLUCOSE,BLOOD-poct (STL) Specimen Type: BLOOD Comment: Test Performed by: [id number] Meter #: [id number] Ordering Provider: SILVIA REDDY Report Released Date/Time: Aug 17, 2024 05:54 AM Reporting Lab: [facility] [address] Performing Lab: [facility] [address] GLUCOSE,BLOOD- poct (STL) 124 mg/dL H 72-Aug 16, 2024 07:40 PM [facility] GLUCOSE,BLOOD-poct (STL) Specimen Type: BLOOD Comment: Test Performed by: [id number] Meter #: [id number] Ordering Provider: SILVIA REDDY Report Released Date/Time: Aug 16, 2024 08:28 PM Reporting Lab: [facility] [address] Performing Lab: [facility] [address] GLUCOSE,BLOOD- poct (STL) 144 mg/dL H -Aug 16, 2024 04:19 PM [facility] GLUCOSE,BLOOD-poct (STL) Specimen Type: BLOOD Comment: Test Performed by: [id number] Meter #: [id number] Ordering Provider: SILVIA REDDY Report Released Date/Time: Aug 16, 2024 04:45 PM Reporting Lab: [facility] [address] Performing Lab: [facility] [address] GLUCOSE,BLOOD- poct (STL) 138 mg/dL H 72-Aug 16, 2024 11:52 AM [facility] GLUCOSE,BLOOD-poct (STL) Specimen Type: BLOOD Comment: Test Performed by: [id number] Meter #: [id number] Ordering Provider: SILVIA REDDY Report Released Date/Time: Aug 16, 2024 12:04 PM Reporting Lab: [facility] [address] Performing Lab: [facility] [address] GLUCOSE,BLOOD- poct (STL) 135 mg/dL H 72-99 Aug 16, 2024 05:24 AM [facility] GLUCOSE,BLOOD-poct (STL) Specimen Type: BLOOD Comment: Test Performed by: [id number] Meter #: [id number] Ordering Provider: SILVIA REDDY Report Released Date/Time: Aug 16, 2024 05:38 AM Reporting Lab: [facility] [address] Performing Lab: [facility] [address] GLUCOSE,BLOOD- poct (STL) 151 mg/dL H Aug 15, 2024 07:31 PM [facility] GLUCOSE,BLOOD-poct (STL) Specimen Type: BLOOD Comment: Test Performed by: [id number] Meter #: [id number] Ordering Provider: SILVIA REDDY Report Released Date/Time: Aug 15, 2024 08:07 PM Reporting Lab: [facility] [address] Performing Lab: [facility] [address] GLUCOSE,BLOOD- poct (STL) 173 mg/dL H Aug 15, 2024 04:18 PM [facility] GLUCOSE,BLOOD-poct (STL) Specimen Type: BLOOD Comment: Test Performed by: [id number] Meter #: [id number] Ordering Provider: SILVIA REDDY Report Released Date/Time: Aug 15, 2024 04:59 PM Reporting Lab: [facility] [address] Performing Lab: [facility] [address] GLUCOSE,BLOOD- poct (STL) 136 mg/dL H Aug 15, 2024 04:16 PM [facility] GLUCOSE,BLOOD-poct (STL) Specimen Type: BLOOD Comment: Test Performed by: [id number] Meter #: [id number] Ordering Provider: SILVIA REDDY Report Released Date/Time: Aug 15, 2024 04:59 PM Reporting Lab: [facility] [place] [address] Performing Lab: [facility] [address] GLUCOSE,BLOOD- poct (STL) 194 mg/dL H 72-Aug 15, 2024 11:39 AM [facility] GLUCOSE,BLOOD-poct (STL) Specimen Type: BLOOD Comment: Test Performed by: [id number] Meter #: [id number] Ordering Provider: SILVIA REDDY Report Released Date/Time: Aug 15, 2024 12:00 PM Reporting Lab: [facility] [place] [address] Performing Lab: [facility] [place] [address] GLUCOSE,BLOOD- poct (STL) 127 mg/dL H -Aug 15, 2024 05:07 AM [facility] GLUCOSE,BLOOD-poct (STL) Specimen Type: BLOOD Comment: Test Performed by: [id number] Meter #: [id number] Ordering Provider: SILVIA REDDY Report Released Date/Time: Aug 15, 2024 06:14 AM Reporting Lab: [facility] [place] [address] Performing Lab: [facility] [place] [address] GLUCOSE,BLOOD- poct (STL) 151 mg/dL H -Aug 14, 2024 04:22 PM [facility] GLUCOSE,BLOOD-poct (STL) Specimen Type: BLOOD Comment: Test Performed by: [id number] Meter #: [id number] Ordering Provider: SILVIA REDDY Report Released Date/Time: Aug 14, 2024 04:52 PM Reporting Lab: [facility] [address] Performing Lab: [facility] [address] GLUCOSE,BLOOD- poct (STL) 129 mg/dL H 72-99 Aug 14, 2024 11:21 AM [facility] GLUCOSE,BLOOD-poct (STL) Specimen Type: BLOOD Comment: Test Performed by: [id number] Meter #: [id number] Ordering Provider: SILVIA REDDY Report Released Date/Time: Aug 14, 2024 11:37 AM Reporting Lab: [facility] [address] Performing Lab: [facility] [address] GLUCOSE,BLOOD- poct (STL) 135 mg/dL H 72-Aug 14, 2024 06:59 AM [facility] QUANTIFERON-TB,4 TUBE Specimen Type: BLOOD [...] For additional information, please refer to [email or web address] GuestDriven/faq/OJI761 (This link is being provided for information/ educational purposes only.) Test Performed by [employer] [facility], [address] [place] [address] Tommie Garcia M.D., Ph.D., Director of Laboratories , [facility] [id number] Ordering Provider: SILVIA REDDY Report Released Date/Time: Aug 11, 2024 03:58 PM Reporting Lab: [facility] [address] [facility] [address] Performing Lab: [facility] [id number] [place] [address] .NIL - QUANTIFERON 0.04 [IU]/mL .MITOGEN-NIL 0.39 [IU]/mL .QUANTIFERON INDETERMINATE NEGATIVE .TB1-NIL <0.00 [IU]/mL .TB2-NIL <0.00 [IU]/mL Aug 14, 2024 06:59 AM [facility] B12 Specimen Type: SERUM No comment entered. Ordering Provider: SILVIA REDDY Report Released Date/Time: Aug 11, 2024 03:58 PM Reporting Lab: [facility] [address] Performing Lab: [facility] [address] B12 757 pg/mL 213-816 Aug 14, 2024 06:59 AM [facility] FOLATE (STL-MA) Specimen Type: SERUM No comment entered. Ordering Provider: SILVIA REDDY Report Released Date/Time: Aug 11, 2024 03:58 PM Reporting Lab: [facility] [address] Performing Lab: [facility] [address] FOLATE (STL-MA) 6.8 ng/mL L 7-20 Aug 14, 2024 06:59 AM [facility] MAGNESIUM Specimen Type: PLASMA Comment: No hemolysis noted. Ordering Provider: SILVIA REDDY Report Released Date/Time: Aug 11, 2024 03:58 PM Reporting Lab: [facility] [address] Performing Lab: [facility] [address] MAGNESIUM 1.9 mg/dL 1.6-2.6 Aug 14, 2024 06:59 AM [facility] VITAMIN D, 25-HYDROXY Specimen Type: SERUM No comment entered. Ordering Provider: SILVIA REDDY Report Released Date/Time: Aug 11, 2024 03:58 PM Reporting Lab: [facility] [place] [phone] Performing Lab: [facility] [address] VITAMIN D, 25-HYDROXY 8.9 ng/mL L 30-96 Aug 14, 2024 06:59 AM [facility] COMPREHENSIVE METABOLIC PANEL Specimen Type: PLASMA Comment: No hemolysis noted. Ordering Provider: SILVIA REDDY Report Released Date/Time: Aug 11, 2024 03:58 PM Reporting Lab: [facility] [phone] Performing Lab: [facility] [place] [phone] CREATININE 0.75 mg/dL 0.70-1.30 UREA NITROGEN 13.6 [...] 14, 2024 06:59 AM [facility] CBC Specimen Type: BLOOD No comment entered. Ordering Provider: SILVIA REDDY Report Released Date/Time: Aug 11, 2024 03:58 PM Reporting Lab: [facility] [phone] Performing Lab: [facility] [phone] WBC 4.1 10*3/uL 3.6-11.2 RBC 3.20 10*6/uL [...] 10*3/uL 0.00-0.20 Aug 14, 2024 05:08 AM [facility] GLUCOSE,BLOOD-poct (STL) Specimen Type: BLOOD Comment: Test Performed by: [id number] Meter #: [id number] Ordering Provider: SILVIA REDDY Report Released Date/Time: Aug 14, 2024 05:52 AM Reporting Lab: [facility] [phone] Performing Lab: [facility] [phone] GLUCOSE,BLOOD- poct (STL) 135 mg/dL H 72-99 Aug 13, 2024 04:27 PM [facility] GLUCOSE,BLOOD-poct (STL) Specimen Type: BLOOD Comment: Test Performed by: [id number] Meter #: [id number] Ordering Provider: SILVIA REDDY Report Released Date/Time: Aug 13, 2024 04:41 PM Reporting Lab: [facility] [phone] Performing Lab: [facility] [phone] GLUCOSE,BLOOD- poct (STL) 181 mg/dL H -Aug 13, 2024 11:33 AM [facility] GLUCOSE,BLOOD-poct (STL) Specimen Type: BLOOD Comment: Test Performed by: [id number] Meter #: [id number] Ordering Provider: SILVIA REDDY Report Released Date/Time: Aug 13, 2024 03:55 PM Reporting Lab: [facility] [address] Performing Lab: [facility] [place] [address] GLUCOSE,BLOOD- poct (STL) 140 mg/dL H Aug 13, 2024 05:54 AM [facility] GLUCOSE,BLOOD-poct (STL) Specimen Type: BLOOD Comment: Test Performed by: [id number] Meter #: [id number] Ordering Provider: SILVIA REDDY Report Released Date/Time: Aug 13, 2024 06:20 AM Reporting Lab: [facility] [address] Performing Lab: [facility] [address] GLUCOSE,BLOOD- poct (STL) 112 mg/dL H Aug 12, 2024 04:35 PM [facility] GLUCOSE,BLOOD-poct (STL) Specimen Type: BLOOD Comment: Test Performed by: [id number] Meter #: [id number] Ordering Provider: SILVIA REDDY Report Released Date/Time: Aug 12, 2024 04:47 PM Reporting Lab: [facility] [address] Performing Lab: [facility] [address] GLUCOSE,BLOOD- poct (STL) 128 mg/dL H 72-99 Aug 12, 2024 11:26 AM [facility] GLUCOSE,BLOOD-poct (STL) Specimen Type: BLOOD Comment: Test Performed by: [id number] Meter #: [id number] Ordering Provider: SILVIA REDDY Report Released Date/Time: Aug 12, 2024 11:45 AM Reporting Lab: [facility] [address] Performing Lab: [facility] [place] [address] GLUCOSE,BLOOD- poct (STL) 188 mg/dL H -Aug 12, 2024 06:13 AM [facility] GLUCOSE,BLOOD-poct (STL) Specimen Type: BLOOD Comment: Test Performed by: [id number] Meter #: [id number] Ordering Provider: SILVIA REDDY Report Released Date/Time: Aug 12, 2024 06:25 AM Reporting Lab: [facility] [address] Performing Lab: [facility] [address] GLUCOSE,BLOOD- poct (STL) 116 mg/dL H 72-99 Aug 11, 2024 04:10 PM [facility] GLUCOSE,BLOOD-poct (STL) Specimen Type: BLOOD Comment: Test Performed by: [id number] Meter #: [id number] Ordering Provider: SILVIA REDDY Report Released Date/Time: Aug 11, 2024 04:27 PM Reporting Lab: [facility] [place] [address] Performing Lab: [facility] [address] GLUCOSE,BLOOD- poct (STL) 184 mg/dL H 72-99 Aug 11, 2024 01:44 PM [facility] MRSA SURVL NARES DNA Specimen [...] 11, 2024 02:03 PM Reporting Lab: [address] [address] Performing Lab: [address] [address] MRSA SURVL NARES DNA Negative Negative Jul 20, 2024 11:18 AM [facility] APTT Specimen Type: PLASMA No comment entered. Ordering Provider: MANUEL BAIRD Report Released Date/Time: Jul 19, 2024 04:00 PM Reporting Lab: [address] [address] Performing Lab: [address] [address] APTT 32.1 s 26.7-39.9 Jul 20, 2024 11:18 AM [facility] PT/INR NEW (L-VT) Specimen Type: PLASMA No comment entered. Ordering Provider: MANUEL BAIRD Report Released Date/Time: Jul 19, 2024 04:00 PM Reporting Lab: [address] [address] Performing Lab: [address] [address] PROTIME 14.4 s H 9.4-12.5 INR VALUE 1.3 {INR} Jul 20, 2024 11:18 AM [facility] CBC Specimen Type: BLOOD No comment entered. Ordering Provider: MANUEL BAIRD Report Released Date/Time: Jul 19, 2024 04:00 PM Reporting Lab: [facility] [address] [facility] [address] Performing Lab: [facility] [address] [facility] [address] WBC 4.7 10*3/uL 3.6-11.2 RBC 4.86 10*6/uL [...] 07:55 PM 98.2 78 106/65 18 96 [facility] N Aug 18, 2024 07:20 PM 0 [facility] Aug 18, 2024 01:52 PM 0 [facility] Aug 18, 2024 10:16 AM 97.7 79 133/79 18 95 [facility] N Aug 18, 2024 05:41 AM 97 71 136/74 18 96 0 [facility] N Advance Directives: All historical and current [...] Source Jan 19, 2017 ADVANCE DIRECTIVE DISCUSSION REICK BARDALES [facility]
--- OUTSIDE RECORDS SUMMARY | 2024-11-17 04:17 | XMS_ITS ---
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 Date/Time Encounter Type Encounter Description Reason Pro vider Source Aug 18, 2024 01:58 PM Inpatient Visit DAILY HOSPITALIZATION DATA MARTHA [...] 30, 2024 09:30 AM AMBULATORY - MEDICINE [facility] Aug 31, 2024 01:00 PM AMBULATORY - SURGERY [facility] Sep 21, 2024 01:30 PM AMBULATORY - MEDICINE [facility] Sep 22, 2024 11:00 AM AMBULATORY - MEDICINE [facility] Sep 29, 2024 12:30 PM AMBULATORY - MEDICINE [facility] Oct 02, 2024 09:30 AM AMBULATORY - MEDICINE [facility] Nov 20, 2024 10:30 AM AMBULATORY - SURGERY . [facility] Nov 21, 2024 10:00 AM AMBULATORY - NONE [facility] Dec 11, 2024 10:30 AM AMBULATORY [...] 17, 2024 03:47 PM Consult Order [facility] [place] [place] [facility] Cons Bedside [facility] [...] Comment Aug 23, 2024 08:21 AM [facility] CBC Specimen Type: BLOOD No comment entered. Ordering Provider: SILVIA REDDY Report Released Date/Time: Aug 22, 2024 11:19 AM Reporting Lab: [facility] [address] Performing Lab: [facility] [address] WBC 4.0 10*3/uL 3.6-11.2 RBC 3.65 10*6/uL [...] 10*3/uL 0.00-0.20 Aug 23, 2024 08:21 AM [facility] MAGNESIUM Specimen Type: PLASMA No comment entered. Ordering Provider: SILVIA REDDY Report Released Date/Time: Aug 22, 2024 11:26 AM Reporting Lab: [facility] [address] Performing Lab: [facility] [address] MAGNESIUM 1.8 mg/dL 1.6-2.6 Aug 23, 2024 05:12 AM [facility] GLUCOSE,BLOOD-poct (STL) Specimen Type: BLOOD Comment: Test Performed by: [id number] Meter #: [id number] Ordering Provider: SILVIA REDDY Report Released Date/Time: Aug 23, 2024 05:23 AM Reporting Lab: [facility] [address] Performing Lab: [facility] [address] GLUCOSE,BLOOD- poct (STL) 99 mg/dL 72-99 Aug 23, 2024 02:45 AM [facility] OCCULT BLOOD FIT X1 SCREEN Specimen Type: FECES No comment entered. Ordering Provider: SILVIA REDDY Report Released Date/Time: Aug 22, 2024 11:23 AM Reporting Lab: [facility] [address] [place] [address] Performing Lab: [place] [address] [facility] [address] OCCULT BLOOD (FIT) #1 OF 1 Negative Negative Aug 22, 2024 07:30 PM [facility] OCCULT BLOOD FIT X1 SCREEN Specimen Type: FECES No comment entered. Ordering Provider: SILVIA REDDY Report Released Date/Time: Aug 22, 2024 11:23 AM Reporting Lab: [facility] [address] [place] [address] Performing Lab: [place] [address] [facility] [address] OCCULT BLOOD (FIT) #1 OF 1 Negative Negative Aug 22, 2024 06:15 PM [facility] OCCULT BLOOD FIT X1 SCREEN Specimen Type: FECES No comment entered. Ordering Provider: SILVIA REDDY Report Released Date/Time: Aug 22, 2024 11:23 AM Reporting Lab: [address] [address] Performing Lab: [facility] [address] [facility] [address] OCCULT BLOOD (FIT) #1 OF 1 Negative Negative Aug 22, 2024 04:24 PM [facility] GLUCOSE,BLOOD-poct (STL) Specimen Type: BLOOD Comment: Test Performed by: [id number] Meter #: [id number] Ordering Provider: SILVIA REDDY Report Released Date/Time: Aug 22, 2024 04:36 PM Reporting Lab: [facility] [address] Performing Lab: [facility] [address] GLUCOSE,BLOOD- poct (STL) 176 mg/dL H -Aug 22, 2024 04:23 PM [facility] GLUCOSE,BLOOD-poct (STL) Specimen Type: BLOOD Comment: Test Performed by: [id number] Meter #: [id number] Ordering Provider: SILVIA REDDY Report Released Date/Time: Aug 22, 2024 04:36 PM Reporting Lab: [facility] [address] Performing Lab: [facility] [address] GLUCOSE,BLOOD- poct (STL) 221 mg/dL H 72-Aug 22, 2024 11:15 AM [facility] GLUCOSE,BLOOD-poct (STL) Specimen Type: BLOOD Comment: Test Performed by: [id number] Meter #: [id number] Ordering Provider: SILVIA REDDY Report Released Date/Time: Aug 22, 2024 11:27 AM Reporting Lab: [facility] [address] Performing Lab: [facility] [address] GLUCOSE,BLOOD- poct (STL) 140 mg/dL H 72-99 Aug 22, 2024 08:[address] [facility] CBC Specimen Type: BLOOD No comment entered. Ordering Provider: SILVIA REDDY Report Released Date/Time: Aug 17, 2024 01:18 PM Reporting Lab: [facility] [address] Performing Lab: [facility] [address] WBC 3.5 10*3/uL L 3.6-11.2 RBC 3.23 [...] Lab: [facility] [address] [facility] [place] [address] Performing Lab: [facility] [address] [place] [address] CREATININE 0.80 mg/dL 0.7-1.3 UREA NITROGEN 9.7 [...] 94.0 >60 Aug 22, 2024 08:03 AM [facility] FERRITIN Specimen Type: SERUM No comment entered. Ordering Provider: JUDIT PERKINS Report Released Date/Time: Aug 18, 2024 11:01 AM Reporting Lab: [address] [address] Performing Lab: [address] [address] FERRITIN 79.50 ng/mL 22-275 Aug 22, 2024 08:03 AM [facility] IRON/TIBC PROFILE Specimen Type: SERUM No comment entered. Ordering Provider: JUDIT PERKINS Report Released Date/Time: Aug 18, 2024 11:01 AM Reporting Lab: [address] [address] Performing Lab: [address] [address] TIBC 283 ug/dL 250-450 TRANSFERRIN 226 mg/dL 163-344 IRON SATURATION 7 L 20-50 IRON 19 ug/dL L 65-175 Aug 22, 2024 08:03 AM [facility] B12 Specimen Type: SERUM No comment entered. Ordering Provider: JUDIT PERKINS Report Released Date/Time: Aug 18, 2024 11:01 AM Reporting Lab: [facility] [address] Performing Lab: [facility] [address] B12 631 pg/mL 213-816 Aug 22, 2024 05:03 AM [facility] GLUCOSE,BLOOD-poct (STL) Specimen Type: BLOOD Comment: Test Performed by: [id number] Meter #: [id number] Ordering Provider: SILVIA REDDY Report Released Date/Time: Aug 22, 2024 06:17 AM Reporting Lab: [facility] [address] Performing Lab: [facility] [address] GLUCOSE,BLOOD- poct (STL) 170 mg/dL H 72-Aug 21, 2024 04:32 PM [facility] GLUCOSE,BLOOD-poct (STL) Specimen Type: BLOOD Comment: Test Performed by: [id number] Meter #: [id number] Ordering Provider: SILVIA REDDY Report Released Date/Time: Aug 21, 2024 04:49 PM Reporting Lab: [facility] [address] Performing Lab: [facility] [address] GLUCOSE,BLOOD- poct (STL) 169 mg/dL H 72-99 Aug 21, 2024 11:53 AM [facility] GLUCOSE,BLOOD-poct (STL) Specimen Type: BLOOD Comment: Test Performed by: [id number] Meter #: [id number] Ordering Provider: SILVIA RDEDY Report Released Date/Time: Aug 21, 2024 12:11 PM Reporting Lab: [facility] [address] Performing Lab: [facility] [address] GLUCOSE,BLOOD- poct (STL) 149 mg/dL H 72-99 Aug 21, 2024 05:10 AM [facility] GLUCOSE,BLOOD-poct (STL) Specimen Type: BLOOD Comment: Test Performed by: [id number] Meter #: [id number] Ordering Provider: SILVIA REDDY Report Released Date/Time: Aug 21, 2024 05:27 AM Reporting Lab: [facility] [place] [address] Performing Lab: [facility] [place] [phone] GLUCOSE,BLOOD- poct (STL) 118 mg/dL H 72-99 Aug 20, 2024 04:38 PM [facility] GLUCOSE,BLOOD-poct (STL) Specimen Type: BLOOD Comment: Test Performed by: [id number] Meter #: [id number] Ordering Provider: SILVIA REDDY Report Released Date/Time: Aug 21, 2024 01:55 AM Reporting Lab: [facility] [place] [address] Performing Lab: [facility] [place] [address] GLUCOSE,BLOOD- poct (STL) 169 mg/dL H 72-99 Aug 20, 2024 04:36 PM [facility] GLUCOSE,BLOOD-poct (STL) Specimen Type: BLOOD Comment: Test Performed by: [id number] Meter #: [id number] Ordering Provider: SILVIA REDDY Report Released Date/Time: Aug 21, 2024 01:55 AM Reporting Lab: [facility] [place] [address] Performing Lab: [facility] [place] [address] GLUCOSE,BLOOD- poct (STL) 395 mg/dL H 72-99 Aug 20, 2024 11:45 AM [facility] GLUCOSE,BLOOD-poct (STL) Specimen Type: BLOOD Comment: Test Performed by: [id number] Meter #: [id number] Ordering Provider: SILVIA REDDY Report Released Date/Time: Aug 20, 2024 11:56 AM Reporting Lab: [facility] [address] Performing Lab: [facility] [address] GLUCOSE,BLOOD- poct (STL) 169 mg/dL H 72-Aug 20, 2024 05:06 AM [facility] GLUCOSE,BLOOD-poct (STL) Specimen Type: BLOOD Comment: Test Performed by: [id number] Meter #: [id number] Ordering Provider: SILVIA REDDY Report Released Date/Time: Aug 20, 2024 06:05 AM Reporting Lab: [facility] [address] Performing Lab: [facility] [address] GLUCOSE,BLOOD- poct (STL) 115 mg/dL H 72-Aug 19, 2024 04:23 PM [facility] GLUCOSE,BLOOD-poct (STL) Specimen Type: BLOOD Comment: Test Performed by: [id number] Meter #: [id number] Ordering Provider: SILVIA REDDY Report Released Date/Time: Aug 19, 2024 05:54 PM Reporting Lab: [facility] [address] Performing Lab: [facility] [address] GLUCOSE,BLOOD- poct (STL) 137 mg/dL H 72-99 Aug 19, 2024 11:28 AM [facility] GLUCOSE,BLOOD-poct (STL) Specimen Type: BLOOD Comment: Test Performed by: [id number] Meter #: [id number] Ordering Provider: SILVIA REDDY Report Released Date/Time: Aug 19, 2024 11:51 AM Reporting Lab: [facility] [address] Performing Lab: [facility] [address] GLUCOSE,BLOOD- poct (STL) 190 mg/dL H 72-99 Aug 19, 2024 05:21 AM [facility] GLUCOSE,BLOOD-poct (STL) Specimen Type: BLOOD Comment: Test Performed by: [id number] Meter #: [id number] Ordering Provider: SILVIA REDDY Report Released Date/Time: Aug 19, 2024 05:56 AM Reporting Lab: [facility] [address] Performing Lab: [facility] [address] GLUCOSE,BLOOD- poct (STL) 130 mg/dL H Aug 18, 2024 04:49 PM [facility] GLUCOSE,BLOOD-poct (STL) Specimen Type: BLOOD Comment: Test Performed by: [id number] Meter #: [id number] Ordering Provider: SILVIA REDDY Report Released Date/Time: Aug 18, 2024 05:01 PM Reporting Lab: [facility] [address] Performing Lab: [facility] [address] GLUCOSE,BLOOD- poct (STL) 129 mg/dL H Aug 18, 2024 11:23 AM [facility] GLUCOSE,BLOOD-poct (STL) Specimen Type: BLOOD Comment: Test Performed by: [id number] Meter #: [id number] Ordering Provider: SILVIA REDDY Report Released Date/Time: Aug 18, 2024 11:41 AM Reporting Lab: [facility] [address] Performing Lab: [facility] [address] GLUCOSE,BLOOD- poct (STL) 180 mg/dL H Aug 18, 2024 05:08 AM [facility] GLUCOSE,BLOOD-poct (STL) Specimen Type: BLOOD Comment: Test Performed by: [id number] Meter #: [id number] Ordering Provider: SILVIA REDDY Report Released Date/Time: Aug 18, 2024 05:31 AM Reporting Lab: [facility] [address] Performing Lab: [facility] [address] GLUCOSE,BLOOD- poct (STL) 127 mg/dL H 72-Aug 17, 2024 07:32 PM [facility] GLUCOSE,BLOOD-poct (STL) Specimen Type: BLOOD Comment: Test Performed by: [id number] Meter #: [id number] Ordering Provider: SILVIA REDDY Report Released Date/Time: Aug 17, 2024 07:59 PM Reporting Lab: [facility] [address] Performing Lab: [facility] [place] [address] GLUCOSE,BLOOD- poct (STL) 154 mg/dL H -Aug 17, 2024 04:24 PM [facility] GLUCOSE,BLOOD-poct (STL) Specimen Type: BLOOD Comment: Test Performed by: [id number] Meter #: [id number] Ordering Provider: SILVIA REDDY Report Released Date/Time: Aug 17, 2024 04:35 PM Reporting Lab: [facility] [place] [phone] Performing Lab: [facility] [place] [address] GLUCOSE,BLOOD- poct (STL) 178 mg/dL H 72-Aug 17, 2024 05:09 AM [facility] GLUCOSE,BLOOD-poct (STL) Specimen Type: BLOOD Comment: Test Performed by: [id number] Meter #: [id number] Ordering Provider: SILVIA REDDY Report Released Date/Time: Aug 17, 2024 05:54 AM Reporting Lab: [facility] [address] Performing Lab: [facility] [address] GLUCOSE,BLOOD- poct (STL) 124 mg/dL H 72-Aug 16, 2024 07:40 PM [facility] GLUCOSE,BLOOD-poct (STL) Specimen Type: BLOOD Comment: Test Performed by: [id number] Meter #: [id number] Ordering Provider: SILVIA REDDY Report Released Date/Time: Aug 16, 2024 08:28 PM Reporting Lab: [facility] [address] Performing Lab: [facility] [address] GLUCOSE,BLOOD- poct (STL) 144 mg/dL H 72-Aug 16, 2024 04:19 PM [facility] GLUCOSE,BLOOD-poct (STL) Specimen Type: BLOOD Comment: Test Performed by: [id number] Meter #: [id number] Ordering Provider: SILVIA REDDY Report Released Date/Time: Aug 16, 2024 04:45 PM Reporting Lab: [facility] [address] Performing Lab: [facility] [address] GLUCOSE,BLOOD- poct (STL) 138 mg/dL H 72-Aug 16, 2024 11:52 AM [facility] GLUCOSE,BLOOD-poct (STL) Specimen Type: BLOOD Comment: Test Performed by: [id number] Meter #: [id number] Ordering Provider: SILVIA REDDY Report Released Date/Time: Aug 16, 2024 12:04 PM Reporting Lab: [facility] [address] Performing Lab: [facility] [address] GLUCOSE,BLOOD- poct (STL) 135 mg/dL H 72-99 Aug 16, 2024 05:24 AM [facility] GLUCOSE,BLOOD-poct (STL) Specimen Type: BLOOD Comment: Test Performed by: [id number] Meter #: [id number] Ordering Provider: SILVIA REDDY Report Released Date/Time: Aug 16, 2024 05:38 AM Reporting Lab: [facility] [address] Performing Lab: [facility] [address] GLUCOSE,BLOOD- poct (STL) 151 mg/dL H Aug 15, 2024 07:31 PM [facility] GLUCOSE,BLOOD-poct (STL) Specimen Type: BLOOD Comment: Test Performed by: [id number] Meter #: [id number] Ordering Provider: SILVIA REDDY Report Released Date/Time: Aug 15, 2024 08:07 PM Reporting Lab: [facility] [address] Performing Lab: [facility] [address] GLUCOSE,BLOOD- poct (STL) 173 mg/dL H Aug 15, 2024 04:18 PM [facility] GLUCOSE,BLOOD-poct (STL) Specimen Type: BLOOD Comment: Test Performed by: [id number] Meter #: [id number] Ordering Provider: SILVIA REDDY Report Released Date/Time: Aug 15, 2024 04:59 PM Reporting Lab: [facility] [address] Performing Lab: [facility] [address] GLUCOSE,BLOOD- poct (STL) 136 mg/dL H Aug 15, 2024 04:16 PM [facility] GLUCOSE,BLOOD-poct (STL) Specimen Type: BLOOD Comment: Test Performed by: [id number] Meter #: [id number] Ordering Provider: SILVIA REDDY Report Released Date/Time: Aug 15, 2024 04:59 PM Reporting Lab: [facility] [place] [address] Performing Lab: [facility] [address] GLUCOSE,BLOOD- poct (STL) 194 mg/dL H 72-Aug 15, 2024 11:39 AM [facility] GLUCOSE,BLOOD-poct (STL) Specimen Type: BLOOD Comment: Test Performed by: [id number] Meter #: [id number] Ordering Provider: SILVIA REDDY Report Released Date/Time: Aug 15, 2024 12:00 PM Reporting Lab: [facility] [place] [address] Performing Lab: [facility] [place] [address] GLUCOSE,BLOOD- poct (STL) 127 mg/dL H 72-Aug 15, 2024 05:07 AM [facility] GLUCOSE,BLOOD-poct (STL) Specimen Type: BLOOD Comment: Test Performed by: [id number] Meter #: [id number] Ordering Provider: SILVIA REDDY Report Released Date/Time: Aug 15, 2024 06:14 AM Reporting Lab: [facility] [place] [address] Performing Lab: [facility] [place] [address] GLUCOSE,BLOOD- poct (STL) 151 mg/dL H 72-Aug 14, 2024 04:22 PM [facility] GLUCOSE,BLOOD-poct (STL) Specimen Type: BLOOD Comment: Test Performed by: [id number] Meter #: [id number] Ordering Provider: SILVIA REDDY Report Released Date/Time: Aug 14, 2024 04:52 PM Reporting Lab: [facility] [address] Performing Lab: [facility] [address] GLUCOSE,BLOOD- poct (STL) 129 mg/dL H 72-99 Aug 14, 2024 11:21 AM [facility] GLUCOSE,BLOOD-poct (STL) Specimen Type: BLOOD Comment: Test Performed by: [id number] Meter #: [id number] Ordering Provider: SILVIA REDDY Report Released Date/Time: Aug 14, 2024 11:37 AM Reporting Lab: [facility] [address] Performing Lab: [facility] [address] GLUCOSE,BLOOD- poct (STL) 135 mg/dL H 72-Aug 14, 2024 06:59 AM [facility] QUANTIFERON-TB,4 [...] For additional information, please refer to http://education. CRAVE/faq/BSA015 (This link is being provided for information/ educational purposes only.) Test Performed by [employer] [place], [employer] [facility], [address] [place] [address] Tommie Garcia M.D., Ph.D., Director of Laboratories , [facility] [id number] Ordering Provider: SILVIA REDDY Report Released Date/Time: Aug 11, 2024 03:58 PM Reporting Lab: [facility] [address] [place] [address] Performing Lab: [facility] [id number] [place] [address] .NIL - QUANTIFERON 0.04 [IU]/mL .MITOGEN-NIL 0.39 [IU]/mL .QUANTIFERON INDETERMINATE NEGATIVE .TB1-NIL <0.00 [IU]/mL .TB2-NIL <0.00 [IU]/mL Aug 14, 2024 06:59 AM [facility] MAGNESIUM Specimen Type: PLASMA Comment: No hemolysis noted. Ordering Provider: SILVIA REDDY Report Released Date/Time: Aug 11, 2024 03:58 PM Reporting Lab: [facility] [address] Performing Lab: [facility] [address] MAGNESIUM 1.9 mg/dL 1.6-2.6 Aug 14, 2024 06:59 AM [facility] B12 Specimen Type: SERUM No comment entered. Ordering Provider: SILVIA REDDY Report Released Date/Time: Aug 11, 2024 03:58 PM Reporting Lab: [facility] [address] Performing Lab: [facility] [address] B12 757 pg/mL 213-816 Aug 14, 2024 06:59 AM [facility] FOLATE (STL-MA) Specimen Type: SERUM No comment entered. Ordering Provider: SILVIA REDDY Report Released Date/Time: Aug 11, 2024 03:58 PM Reporting Lab: [facility] [address] Performing Lab: [facility] [address] FOLATE (STL-MA) 6.8 ng/mL L 7-20 Aug 14, 2024 06:59 AM [facility] VITAMIN D, 25-HYDROXY Specimen Type: SERUM No comment entered. Ordering Provider: SILVIA REDDY Report Released Date/Time: Aug 11, 2024 03:58 PM Reporting Lab: [facility] [address] Performing Lab: [facility] [address] VITAMIN D, 25-HYDROXY 8.9 ng/mL L 30-96 Aug 14, 2024 06:59 AM [facility] COMPREHENSIVE METABOLIC PANEL Specimen Type: PLASMA Comment: No hemolysis noted. Ordering Provider: SILVIA REDDY Report Released Date/Time: Aug 11, 2024 03:58 PM Reporting Lab: [facility] [address] Performing Lab: [facility] [address] CREATININE 0.75 mg/dL 0.70-1.30 UREA NITROGEN 13.6 [...] Reporting Lab: [facility] [address] Performing Lab: [facility] [address] WBC 4.1 10*3/uL 3.6-11.2 RBC 3.20 10*6/uL [...] 0.00-0.20 Aug 14, 2024 05:08 AM [facility] GLUCOSE,BLOOD-poct (STL) Specimen Type: BLOOD Comment: Test Performed by: [id number] Meter #: [id number] Ordering Provider: SILVIA REDDY Report Released Date/Time: Aug 14, 2024 05:52 AM Reporting Lab: [facility] [address] Performing Lab: [facility] [address] GLUCOSE,BLOOD- poct (STL) 135 mg/dL H 72-99 Aug 13, 2024 04:27 PM [facility] GLUCOSE,BLOOD-poct (STL) Specimen Type: BLOOD Comment: Test Performed by: [id number] Meter #: [id number] Ordering Provider: SILVIA REDDY Report Released Date/Time: Aug 13, 2024 04:41 PM Reporting Lab: [facility] [address] Performing Lab: [facility] [address] GLUCOSE,BLOOD- poct (STL) 181 mg/dL H -Aug 13, 2024 11:33 AM [facility] GLUCOSE,BLOOD-poct (STL) Specimen Type: BLOOD Comment: Test Performed by: [id number] Meter #: [id number] Ordering Provider: SILVIA REDDY Report Released Date/Time: Aug 13, 2024 03:55 PM Reporting Lab: [facility] [address] Performing Lab: [facility] [address] GLUCOSE,BLOOD- poct (STL) 140 mg/dL H -Aug 13, 2024 05:54 AM [facility] GLUCOSE,BLOOD-poct (STL) Specimen Type: BLOOD Comment: Test Performed by: [id number] Meter #: [id number] Ordering Provider: SILVIA REDDY Report Released Date/Time: Aug 13, 2024 06:20 AM Reporting Lab: [facility] [address] Performing Lab: [facility] [address] GLUCOSE,BLOOD- poct (STL) 112 mg/dL H Aug 12, 2024 04:35 PM [facility] GLUCOSE,BLOOD-poct (STL) Specimen Type: BLOOD Comment: Test Performed by: [id number] Meter #: [id number] Ordering Provider: SILVIA REDDY Report Released Date/Time: Aug 12, 2024 04:47 PM Reporting Lab: [facility] [address] Performing Lab: [facility] [address] GLUCOSE,BLOOD- poct (STL) 128 mg/dL H 72-99 Aug 12, 2024 11:26 AM [facility] GLUCOSE,BLOOD-poct (STL) Specimen Type: BLOOD Comment: Test Performed by: [id number] Meter #: [id number] Ordering Provider: SILVIA REDDY Report Released Date/Time: Aug 12, 2024 11:45 AM Reporting Lab: [facility] [place] [facility] [address] Performing Lab: [facility] [place] [address] GLUCOSE,BLOOD- poct (STL) 188 mg/dL H 72-Aug 12, 2024 06:13 AM [facility] GLUCOSE,BLOOD-poct (STL) Specimen Type: BLOOD Comment: Test Performed by: [id number] Meter #: [id number] Ordering Provider: SILVIA REDDY Report Released Date/Time: Aug 12, 2024 06:25 AM Reporting Lab: [facility] [address] Performing Lab: [facility] [address] GLUCOSE,BLOOD- poct (STL) 116 mg/dL H 72-99 Aug 11, 2024 04:10 PM [facility] GLUCOSE,BLOOD-poct (STL) Specimen Type: BLOOD Comment: Test Performed by: [id number] Meter #: [id number] Ordering Provider: SILVIA REDDY Report Released Date/Time: Aug 11, 2024 04:27 PM Reporting Lab: [facility] [place] [address] Performing Lab: [facility] [address] GLUCOSE,BLOOD- poct (STL) 184 mg/dL H 72-99 [...] 11, 2024 02:03 PM Reporting Lab: [address] [address] Performing Lab: [address] [address] MRSA SURVL NARES DNA Negative Negative Jul 20, 2024 11:18 AM [facility] APTT Specimen Type: PLASMA No comment entered. Ordering Provider: MANUEL BAIRD Report Released Date/Time: Jul 19, 2024 04:00 PM Reporting Lab: [address] [address] Performing Lab: [address] [address] APTT 32.1 s 26.7-39.9 Jul 20, 2024 11:18 AM [facility] PT/INR NEW (L-[place]) Specimen Type: PLASMA No comment entered. Ordering Provider: MANUEL BAIRD Report Released Date/Time: Jul 19, 2024 04:00 PM Reporting Lab: [address] [address] Performing Lab: [address] [address] PROTIME 14.4 s H 9.4-12.5 INR VALUE 1.3 {INR} Jul 20, 2024 11:18 AM [facility] CBC Specimen Type: BLOOD No comment entered. Ordering Provider: MANUEL BARID Report Released Date/Time: Jul 19, 2024 04:00 PM Reporting Lab: [facility] [address] [address] Performing Lab: [facility] [address] [facility] [place] [facility] [address] WBC 4.7 10*3/uL 3.6-11.2 RBC 4.86 10*6/uL [...] 07:55 PM 98.2 78 106/65 18 96 [facility] N Aug 18, 2024 07:20 PM 0 [facility] Aug 18, 2024 01:52 PM 0 [facility] Aug 18, 2024 10:16 AM 97.7 79 133/79 18 95 [facility] Aug 18, 2024 05:41 AM 97 71 136/74 18 96 0 [facility] N Advance Directives: All historical and [...] DISCUSSION ERICK BARDALES [facility]
--- OUTSIDE RECORDS SUMMARY | 2024-11-17 04:17 | XMS_ITS | Encounter Summary ---
Author Name [facility] [facility] [place] [place] [facility] [place] Address [address] [place] [address] Care Team Providers Care Sanitizer Name Role Phone MANUEL BAIRD Primary Care [...] PART A Apr 08, 2017 PART A [id number] ASHLEY WALKER PATIENT Selected Encounter This section includes the information on record at [place] for the Encounter. 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 This section includes future appointments and future orders which are active, pending or scheduled. Future Appointments This section includes appointments that were scheduled to occur 6 months from the date of the Encounter, up to a maximum of 20 appointments. The data comes from all [facility]. Appointment Date/Time Appointment Type Appointme nt Facility Name Aug 24, 2024 10:00 AM AMBULATORY - MEDICINE [facility] Aug 24, 2024 10:30 AM AMBULATORY - MEDICINE [facility] Aug 30, 2024 09:30 AM AMBULATORY MEDICINE [facility] Aug 31, 2024 01:00 PM AMBULATORY - SURGERY [facility] Sep 21, 2024 01:30 PM AMBULATORY MEDICINE [facility] Sep 22, 2024 11:00 AM AMBULATORY - MEDICINE [facility] Sep 29, 2024 12:30 PM AMBULATORY - MEDICINE [facility] Oct 02, 2024 09:30 AM AMBULATORY - MEDICINE [facility] Nov 20, 2024 10:30 AM AMBULATORY - SURGERY [facility] Nov 21, 2024 10:00 AM AMBULATORY - [...] theEncounter. The data comes from all [facility]. Test Date/Time Test Type Test Details Facility Name Aug 02, 2024 12:00 AM Laboratory - Chemistry Order CBC BLOOD STAT SP [facility] Aug 02, 2024 12:00 AM Laboratory - Chemistry Order COMPREHENSIVE METABOLIC PANEL GREEN LI/HEP BLD[facility] Aug 17, 2024 03:47 PM Consult Order [facility] ST[facility] Cons [facility]side [facility] [...] Range Comment Aug 23, 2024 08:21 AM [facility] MAGNESIUM Specimen Type: PLASMA No comment entered. Ordering Provider: SILVIA REDDY Report Released Date/Time: Aug 22, 2024 11:26 AM Reporting Lab: [facility] #1 [facility] [address] Performing Lab: [facility] [address] MAGNESIUM 1.8 mg/dL 1.6-2.6 Aug 23, 2024 08:21 AM [facility] CBC Specimen Type: BLOOD No comment entered. Ordering Provider: SILVIA REDDY Report Released Date/Time: Aug 22, 2024 11:19 AM Reporting Lab: [facility] #1 [facility] [address] Performing Lab: [facility]1 [facility] [address] WBC 4.0 10*3/uL 3.6-11.2 RBC 3.65 10*6/uL [...] 10*3/uL 0.00-0.20 Aug 23, 2024 05:12 AM [facility] GLUCOSE,BLOOD-poct (STL) Specimen Type: BLOOD Comment: Test Performed by: [id number] Meter #: [id number] Ordering Provider: SILVIA REDDY Report Released Date/Time: Aug 23, 2024 05:23 AM Reporting Lab: [facility] #1 [facility] [address] Performing Lab: [facility] [address] GLUCOSE,BLOOD- poct (STL) 99 mg/dL 72-99 Aug 23, 2024 02:45 AM [facility] OCCULT BLOOD FIT X1 SCREEN Specimen Type: FECES No comment entered. Ordering Provider: SILVIA REDDY Report Released Date/Time: Aug 22, 2024 11:23 AM Reporting Lab: [address] [address] Performing Lab: [address] [address] OCCULT BLOOD (FIT) #1 OF 1 Negative Negative Aug 22, 2024 07:30 PM [facility] OCCULT BLOOD FIT X1 SCREEN Specimen Type: FECES No comment entered. Ordering Provider: SILVIA REDDY Report Released Date/Time: Aug 22, 2024 11:23 AM Reporting Lab: [address] [address] Performing Lab: [address] [address] OCCULT BLOOD (FIT) #1 OF 1 Negative Negative Aug 22, 2024 06:15 PM [facility] OCCULT BLOOD FIT X1 SCREEN Specimen Type: FECES No comment entered. Ordering Provider: SILVIA REDDY Report Released Date/Time: Aug 22, 2024 11:23 AM Reporting Lab: [facility] [address] [place] [address] Performing Lab: [address] [address] OCCULT BLOOD (FIT) #1 OF 1 Negative Negative Aug 22, 2024 04:24 PM [facility] GLUCOSE,BLOOD-poct (STL) Specimen Type: BLOOD Comment: Test Performed by: [id number] Meter #: [id number] Ordering Provider: SILVIA REDDY Report Released Date/Time: Aug 22, 2024 04:36 PM Reporting Lab: [facility]1 [facility] [address] Performing Lab: [facility] #1 [facility] [address] GLUCOSE,BLOOD- poct (STL) 176 mg/dL H 72-99 Aug 22, 2024 04:23 PM [facility] GLUCOSE,BLOOD-poct (STL) Specimen Type: BLOOD Comment: Test Performed by: [id number] Meter #: [id number] Ordering Provider: SILVIA REDDY Report Released Date/Time: Aug 22, 2024 04:36 PM Reporting Lab: [facility]1 [facility] [address] Performing Lab: [facility] #1 [facility] [address] GLUCOSE,BLOOD- poct (STL) 221 mg/dL H 72-99 Aug 22, 2024 11:15 AM [facility] GLUCOSE,BLOOD-poct (STL) Specimen Type: BLOOD Comment: Test Performed by: [id number] Meter #: [id number] Ordering Provider: SILVIA REDDY Report Released Date/Time: Aug 22, 2024 11:27 AM Reporting Lab: [facility] [address] Performing Lab: [facility] [address] GLUCOSE,BLOOD- poct (STL) 140 mg/dL H 72-99 Aug 22, 2024 08:03 AM [facility] FERRITIN Specimen Type: SERUM No comment entered. Ordering Provider: JUDIT PERKINS Report Released Date/Time: Aug 18, 2024 11:01 AM Reporting Lab: [facility] [address] [place] [address] Performing Lab: [facility] [address] [place] [address] FERRITIN 79.50 ng/mL 22-275 Aug 22, 2024 08:03 AM [facility] B12 Specimen Type: SERUM No comment entered. Ordering Provider: JUDIT PERKINS Report Released Date/Time: Aug 18, 2024 11:01 AM Reporting Lab: [facility]1 [facility] [address] Performing Lab: [facility] #1 [facility] [address] B12 631 pg/mL 213-816 Aug 22, 2024 08:03 AM [facility] IRON/TIBC PROFILE Specimen Type: SERUM No comment entered. Ordering Provider: JUDIT PERKINS Report Released Date/Time: Aug 18, 2024 11:01 AM Reporting Lab: [facility] [address] [facility] [address] Performing Lab: [facility] [address] [facility] [address] TIBC 283 ug/dL 250-450 TRANSFERRIN 226 mg/dL 163-344 IRON SATURATION 7 L 20-50 IRON 19 ug/dL L 65-175 Aug 22, 2024 08:03 AM [facility] COMPREHENSIVE METABOLIC PANEL Specimen Type: PLASMA Comment: No hemolysis noted. Ordering Provider: SILVIA REDDY Report Released Date/Time: Aug 17, 2024 01:18 PM Reporting Lab: [facility] [address] [facility] [address] Performing Lab: [facility] [address] [facility] [address] CREATININE 0.80 mg/dL 0.7-1.3 UREA NITROGEN 9.7 [...] PM Reporting Lab: [facility] [address] Performing Lab: [facility] [address] WBC 3.5 10*3/uL L 3.6-11.2 RBC 3.23 [...] NRBC% 0 Aug 22, 2024 05:03 AM [facility] GLUCOSE,BLOOD-poct (STL) Specimen Type: BLOOD Comment: Test Performed by: [id number] Meter #: [id number] Ordering Provider: SILVIA REDDY Report Released Date/Time: Aug 22, 2024 06:17 AM Reporting Lab: [facility] [place] [address] Performing Lab: [facility] [place] [address] GLUCOSE,BLOOD- poct (STL) 170 mg/dL H 72-99 Aug 21, 2024 04:32 PM [facility] GLUCOSE,BLOOD-poct (STL) Specimen Type: BLOOD Comment: Test Performed by: [id number] Meter #: [id number] Ordering Provider: SILVIA REDDY Report Released Date/Time: Aug 21, 2024 04:49 PM Reporting Lab: [facility] [place] [address] Performing Lab: [facility] [place] [address] GLUCOSE,BLOOD- poct (STL) 169 mg/dL H 72-99 Aug 21, 2024 11:53 AM [facility] GLUCOSE,BLOOD-poct (STL) Specimen Type: BLOOD Comment: Test Performed by: [id number] Meter #: [id number] Ordering Provider: SILVIA REDDY Report Released Date/Time: Aug 21, 2024 12:11 PM Reporting Lab: [facility] [place] [address] Performing Lab: [facility] [address] GLUCOSE,BLOOD- poct (STL) 149 mg/dL H -Aug 21, 2024 05:10 AM [facility] GLUCOSE,BLOOD-poct (STL) Specimen Type: BLOOD Comment: Test Performed by: [id number] Meter #: [id number] Ordering Provider: SILVIA REDDY Report Released Date/Time: Aug 21, 2024 05:27 AM Reporting Lab: [facility] #1 [facility] [address] Performing Lab: [facility] #[address] [facility] [address] GLUCOSE,BLOOD- poct (STL) 118 mg/dL H -Aug 20, 2024 04:38 PM [facility] GLUCOSE,BLOOD-poct (STL) Specimen Type: BLOOD Comment: Test Performed by: [id number] Meter #: [id number] Ordering Provider: SILVIA REDDY Report Released Date/Time: Aug 21, 2024 01:55 AM Reporting Lab: [facility]1 [facility] [address] Performing Lab: [facility] #1 [facility] [address] GLUCOSE,BLOOD- poct (STL) 169 mg/dL H -Aug 20, 2024 04:36 PM [facility] GLUCOSE,BLOOD-poct (STL) Specimen Type: BLOOD Comment: Test Performed by: [id number] Meter #: [id number] Ordering Provider: SILVIA REDDY Report Released Date/Time: Aug 21, 2024 01:55 AM Reporting Lab: [facility] #1 [facility] [address] Performing Lab: [facility] #[address] [facility] [address] GLUCOSE,BLOOD- poct (STL) 395 mg/dL H -Aug 20, 2024 11:45 AM [facility] GLUCOSE,BLOOD-poct (STL) Specimen Type: BLOOD Comment: Test Performed by: [id number] Meter #: [id number] Ordering Provider: SILVIA REDDY Report Released Date/Time: Aug 20, 2024 11:56 AM Reporting Lab: [facility] #1 [facility] [address] Performing Lab: [facility] [address] GLUCOSE,BLOOD- poct (STL) 169 mg/dL H 72-Aug 20, 2024 05:06 AM [facility] GLUCOSE,BLOOD-poct (STL) Specimen Type: BLOOD Comment: Test Performed by: [id number] Meter #: [id number] Ordering Provider: SILVIA REDDY Report Released Date/Time: Aug 20, 2024 06:05 AM Reporting Lab: [facility] #1 [facility] [address] Performing Lab: [facility] #1 [facility] [address] GLUCOSE,BLOOD- poct (STL) 115 mg/dL H -Aug 19, 2024 04:23 PM [facility] GLUCOSE,BLOOD-poct (STL) Specimen Type: BLOOD Comment: Test Performed by: [id number] Meter #: [id number] Ordering Provider: SILVIA REDDY Report Released Date/Time: Aug 19, 2024 05:54 PM Reporting Lab: [facility] #1 [facility] [address] Performing Lab: [facility] #1 [facility] [address] GLUCOSE,BLOOD- poct (STL) 137 mg/dL H 72-Aug 19, 2024 11:28 AM [facility] GLUCOSE,BLOOD-poct (STL) Specimen Type: BLOOD Comment: Test Performed by: [id number] Meter #: [id number] Ordering Provider: SILVAI REDDY Report Released Date/Time: Aug 19, 2024 11:51 AM Reporting Lab: [facility] #1 [facility] [address] Performing Lab: [facility] #[address] [facility] [address] GLUCOSE,BLOOD- poct (STL) 190 mg/dL H 72-99 Aug 19, 2024 05:21 AM [facility] GLUCOSE,BLOOD-poct (STL) Specimen Type: BLOOD Comment: Test Performed by: [id number] Meter #: [id number] Ordering Provider: SILVIA REDDY Report Released Date/Time: Aug 19, 2024 05:56 AM Reporting Lab: [facility] #1 [facility] [address] Performing Lab: [facility] [address] GLUCOSE,BLOOD- poct (STL) 130 mg/dL H 72-99 Aug 18, 2024 04:49 PM [facility] GLUCOSE,BLOOD-poct (STL) Specimen Type: BLOOD Comment: Test Performed by: [id number] Meter #: [id number] Ordering Provider: SILVIA REDDY Report Released Date/Time: Aug 18, 2024 05:01 PM Reporting Lab: [facility] #1 [facility] [address] Performing Lab: [facility] #1 [facility] [address] GLUCOSE,BLOOD- poct (STL) 129 mg/dL H 72-99 Aug 18, 2024 11:23 AM [facility] GLUCOSE,BLOOD-poct (STL) Specimen Type: BLOOD Comment: Test Performed by: [id number] Meter #: [id number] Ordering Provider: SILVIA REDDY Report Released Date/Time: Aug 18, 2024 11:41 AM Reporting Lab: [facility] #[address] [facility] [address] Performing Lab: [facility] #1 [facility] [address] GLUCOSE,BLOOD- poct (STL) 180 mg/dL H Aug 18, 2024 05:08 AM [facility] GLUCOSE,BLOOD-poct (STL) Specimen Type: BLOOD Comment: Test Performed by: [id number] Meter #: [id number] Ordering Provider: SILVIA REDDY Report Released Date/Time: Aug 18, 2024 05:31 AM Reporting Lab: [facility] #1 [facility] [address] Performing Lab: [facility] #1 [facility] [address] GLUCOSE,BLOOD- poct (STL) 127 mg/dL H Aug 17, 2024 07:32 PM [facility] GLUCOSE,BLOOD-poct (STL) Specimen Type: BLOOD Comment: Test Performed by: [id number] Meter #: [id number] Ordering Provider: SILVIA REDDY Report Released Date/Time: Aug 17, 2024 07:59 PM Reporting Lab: [facility]1 [facility] [address] Performing Lab: [facility] #1 [facility] [address] GLUCOSE,BLOOD- poct (STL) 154 mg/dL H Aug 17, 2024 04:24 PM [facility] GLUCOSE,BLOOD-poct (STL) Specimen Type: BLOOD Comment: Test Performed by: [id number] Meter #: [id number] Ordering Provider: SILVIA REDDY Report Released Date/Time: Aug 17, 2024 04:35 PM Reporting Lab: [facility]1 [facility] [address] Performing Lab: [facility] #[facility] [address] GLUCOSE,BLOOD- poct (STL) 178 mg/dL H Aug 17, 2024 05:09 AM [facility] GLUCOSE,BLOOD-poct (STL) Specimen Type: BLOOD Comment: Test Performed by: [id number] Meter #: [id number] Ordering Provider: SILVIA REDDY Report Released Date/Time: Aug 17, 2024 05:54 AM Reporting Lab: [facility] #1 [facility] [address] Performing Lab: [facility] [address] GLUCOSE,BLOOD- poct (STL) 124 mg/dL H -Aug 16, 2024 07:40 PM [facility] GLUCOSE,BLOOD-poct (STL) Specimen Type: BLOOD Comment: Test Performed by: [id number] Meter #: [id number] Ordering Provider: SILVIA REDYD Report Released Date/Time: Aug 16, 2024 08:28 PM Reporting Lab: [facility] #1 [facility] [address] Performing Lab: [facility] [address] GLUCOSE,BLOOD- poct (STL) 144 mg/dL H -Aug 16, 2024 04:19 PM [facility] GLUCOSE,BLOOD-poct (STL) Specimen Type: BLOOD Comment: Test Performed by: [id number] Meter #: [id number] Ordering Provider: SILVIA REDDY Report Released Date/Time: Aug 16, 2024 04:45 PM Reporting Lab: [facility] #1 [facility] [address] Performing Lab: [facility] #1 [facility] [address] GLUCOSE,BLOOD- poct (STL) 138 mg/dL H -Aug 16, 2024 11:52 AM [facility] GLUCOSE,BLOOD-poct (STL) Specimen Type: BLOOD Comment: Test Performed by: [id number] Meter #: [id number] Ordering Provider: SILVIA REDDY Report Released Date/Time: Aug 16, 2024 12:04 PM Reporting Lab: [facility] #1 [facility] [address] Performing Lab: [facility] #1 [facility] [address] GLUCOSE,BLOOD- poct (STL) 135 mg/dL H 72-Aug 16, 2024 05:24 AM [facility] GLUCOSE,BLOOD-poct (STL) Specimen Type: BLOOD Comment: Test Performed by: [id number] Meter #: [id number] Ordering Provider: SILVIA REDDY Report Released Date/Time: Aug 16, 2024 05:38 AM Reporting Lab: [facility] #1 [facility] [address] Performing Lab: [facility] [address] GLUCOSE,BLOOD- poct (STL) 151 mg/dL H -Aug 15, 2024 07:31 PM [facility] GLUCOSE,BLOOD-poct (STL) Specimen Type: BLOOD Comment: Test Performed by: [id number] Meter #: [id number] Ordering Provider: SILVIA REDDY Report Released Date/Time: Aug 15, 2024 08:07 PM Reporting Lab: [facility] #1 [facility] [address] Performing Lab: [facility] #1 [facility] [address] GLUCOSE,BLOOD- poct (STL) 173 mg/dL H 72-99 Aug 15, 2024 04:18 PM [facility] GLUCOSE,BLOOD-poct (STL) Specimen Type: BLOOD Comment: Test Performed by: [id number] Meter #: [id number] Ordering Provider: SILVIA REDDY Report Released Date/Time: Aug 15, 2024 04:59 PM Reporting Lab: [facility] #1 [facility] [address] Performing Lab: [facility] [address] GLUCOSE,BLOOD- poct (STL) 136 mg/dL H -Aug 15, 2024 04:16 PM [facility] GLUCOSE,BLOOD-poct (STL) Specimen Type: BLOOD Comment: Test Performed by: [id number] Meter #: [id number] Ordering Provider: SILVIA REDDY Report Released Date/Time: Aug 15, 2024 04:59 PM Reporting Lab: [facility] #1 [facility] [address] Performing Lab: [facility] #1 [facility] [address] GLUCOSE,BLOOD- poct (STL) 194 mg/dL H Aug 15, 2024 11:39 AM [facility] GLUCOSE,BLOOD-poct (STL) Specimen Type: BLOOD Comment: Test Performed by: [id number] Meter #: [id number] Ordering Provider: SILVIA REDDY Report Released Date/Time: Aug 15, 2024 12:00 PM Reporting Lab: [facility] #[facility] [address] Performing Lab: [facility] #1 [facility] [address] GLUCOSE,BLOOD- poct (STL) 127 mg/dL H Aug 15, 2024 05:07 AM [facility] GLUCOSE,BLOOD-poct (STL) Specimen Type: BLOOD Comment: Test Performed by: [id number] Meter #: [id number] Ordering Provider: SILVIA REDDY Report Released Date/Time: Aug 15, 2024 06:14 AM Reporting Lab: [facility] [address] Performing Lab: [facility] #[facility] [address] GLUCOSE,BLOOD- poct (STL) 151 mg/dL H Aug 14, 2024 04:22 PM [facility] GLUCOSE,BLOOD-poct (STL) Specimen Type: BLOOD Comment: Test Performed by: [id number] Meter #: [id number] Ordering Provider: SILVIA REDDY Report Released Date/Time: Aug 14, 2024 04:52 PM Reporting Lab: [facility] [address] Performing Lab: [facility] #[facility] [address] GLUCOSE,BLOOD- poct (STL) 129 mg/dL H 72-99 Aug 14, 2024 11:21 AM [facility] GLUCOSE,BLOOD-poct (STL) Specimen Type: BLOOD Comment: Test Performed by: [id number] Meter #: [id number] Ordering Provider: SILVIA REDDY Report Released Date/Time: Aug 14, 2024 11:37 AM Reporting Lab: [facility] [address] Performing Lab: [facility] [address] GLUCOSE,BLOOD- poct (STL) 135 mg/dL H 72-99 Aug 14, 2024 06:59 AM [facility] QUANTIFERON-TB,4 TUBE Specimen Type: [...] For additional information, please refer to http://education. Comply7. AllofMe/faq/SKV081 (This link is being provided for information/ educational purposes only.) Test Performed by [employer], [employer] [facility], [address] [place], [place] Tommie Garcia M.D., Ph.D., Director of Laboratories , [facility] [id number] Ordering Provider: SILVIA REDDY Report Released Date/Time: Aug 11, 2024 03:58 PM Reporting Lab: [facility] [address] [facility] [address] Performing Lab: [facility] [address] [place] [employer] .NIL - QUANTIFERON 0.04 [IU]/mL .MITOGEN-NIL 0.39 [IU]/mL .QUANTIFERON INDETERMINATE NEGATIVE .TB1-NIL <0.00 [IU]/mL .TB2-NIL <0.00 [IU]/mL Aug 14, 2024 06:59 AM [facility] MAGNESIUM Specimen Type: PLASMA Comment: No hemolysis noted. Ordering Provider: SILVIA REDDY Report Released Date/Time: Aug 11, 2024 03:58 PM Reporting Lab: [facility] [id number] Performing Lab: [facility] [id number] MAGNESIUM 1.9 mg/dL 1.6-2.6 Aug 14, 2024 06:59 AM [facility] B12 Specimen Type: SERUM No comment entered. Ordering Provider: SILVIA REDDY Report Released Date/Time: Aug 11, 2024 03:58 PM Reporting Lab: [facility] [id number] Performing Lab: [facility] [place] [id number] B12 757 pg/mL 213-816 Aug 14, 2024 06:59 AM [facility] FOLATE (L-MA) Specimen Type: SERUM No comment entered. Ordering Provider: SILVIA REDDY Report Released Date/Time: Aug 11, 2024 03:58 PM Reporting Lab: [facility] [place] [id number] Performing Lab: [facility] [place] [address] FOLATE (L-MA) 6.8 ng/mL L 7-20 Aug 14, 2024 06:59 AM [facility] VITAMIN D, 25-HYDROXY Specimen Type: SERUM No comment entered. Ordering Provider: SILVIA REDDY Report Released Date/Time: Aug 11, 2024 03:58 PM Reporting Lab: [facility] [place] [address] Performing Lab: [facility] [place] [address] VITAMIN D, 25-HYDROXY 8.9 ng/mL L 30-96 Aug 14, 2024 06:59 AM [facility] COMPREHENSIVE METABOLIC PANEL Specimen Type: PLASMA Comment: No hemolysis noted. Ordering Provider: SILVIA REDDY Report Released Date/Time: Aug 11, 2024 03:58 PM Reporting Lab: [facility] [place] [address] Performing Lab: [facility] [place] [address] CREATININE 0.75 mg/dL 0.70-1.30 UREA NITROGEN 13.6 [...] 14, 2024 06:59 AM [facility] CBC Specimen Type: BLOOD No comment entered. Ordering Provider: SILVIA REDDY Report Released Date/Time: Aug 11, 2024 03:58 PM Reporting Lab: [facility] [address] Performing Lab: [facility] [facility] [address] WBC 4.1 10*3/uL 3.6-11.2 RBC 3.20 10*6/uL [...] 10*3/uL 0.00-0.20 Aug 14, 2024 05:08 AM [facility] GLUCOSE,BLOOD-poct (STL) Specimen Type: BLOOD Comment: Test Performed by: [id number] Meter #: [id number] Ordering Provider: SIVLIA REDDY Report Released Date/Time: Aug 14, 2024 05:52 AM Reporting Lab: [facility] [address] Performing Lab: [facility] [facility] [address] GLUCOSE,BLOOD- poct (STL) 135 mg/dL H -Aug 13, 2024 04:27 PM [facility] GLUCOSE,BLOOD-poct (STL) Specimen Type: BLOOD Comment: Test Performed by: [id number] Meter #: [id number] Ordering Provider: SILVIA REDDY Report Released Date/Time: Aug 13, 2024 04:41 PM Reporting Lab: [facility] [facility] [address] Performing Lab: [facility] [facility] [address] GLUCOSE,BLOOD- poct (STL) 181 mg/dL H Aug 13, 2024 11:33 AM [facility] GLUCOSE,BLOOD-poct (STL) Specimen Type: BLOOD Comment: Test Performed by: [id number] Meter #: [id number] Ordering Provider: SILVIA REDDY Report Released Date/Time: Aug 13, 2024 03:55 PM Reporting Lab: [facility] [address] Performing Lab: [facility] [facility] [address] GLUCOSE,BLOOD- poct (STL) 140 mg/dL H Aug 13, 2024 05:54 AM [facility] GLUCOSE,BLOOD-poct (STL) Specimen Type: BLOOD Comment: Test Performed by: [id number] Meter #: [id number] Ordering Provider: SILVIA REDDY Report Released Date/Time: Aug 13, 2024 06:20 AM Reporting Lab: [facility] [facility] [address] Performing Lab: [facility] [address] GLUCOSE,BLOOD- poct (STL) 112 mg/dL H -Aug 12, 2024 04:35 PM [facility] GLUCOSE,BLOOD-poct (STL) Specimen Type: BLOOD Comment: Test Performed by: [id number] Meter #: [id number] Ordering Provider: SILVIA REDDY Report Released Date/Time: Aug 12, 2024 04:47 PM Reporting Lab: [facility] [facility] [address] Performing Lab: [facility] [facility] [address] GLUCOSE,BLOOD- poct (STL) 128 mg/dL H -Aug 12, 2024 11:26 AM [facility] GLUCOSE,BLOOD-poct (STL) Specimen Type: BLOOD Comment: Test Performed by: [id number] Meter #: [id number] Ordering Provider: SILVIA REDDY Report Released Date/Time: Aug 12, 2024 11:45 AM Reporting Lab: [facility] [address] Performing Lab: [facility] [facility] [address] GLUCOSE,BLOOD- poct (STL) 188 mg/dL H -Aug 12, 2024 06:13 AM [facility] GLUCOSE,BLOOD-poct (STL) Specimen Type: BLOOD Comment: Test Performed by: [id number] Meter #: [id number] Ordering Provider: SILVIA REDDY Report Released Date/Time: Aug 12, 2024 06:25 AM Reporting Lab: [facility] [address] Performing Lab: [facility] [address] GLUCOSE,BLOOD- poct (STL) 116 mg/dL H -Aug 11, 2024 04:10 PM [facility] GLUCOSE,BLOOD-poct (STL) Specimen Type: BLOOD Comment: Test Performed by: [id number] Meter #: [id number] Ordering Provider: SILVIA REDDY Report Released Date/Time: Aug 11, 2024 04:27 PM Reporting Lab: [facility] [address] Performing Lab: [facility] [address] GLUCOSE,BLOOD- poct (STL) 184 mg/dL H 72-99 [...] Aug 11, 2024 02:03 PM Reporting Lab: [facility] [address] [place] [address] Performing Lab: [address] [address] MRSA SURVL NARES DNA Negative Negative Jul 20, 2024 11:18 AM [facility] APTT Specimen Type: PLASMA No comment entered. Ordering Provider: MANUEL BAIRD Report Released Date/Time: Jul 19, 2024 04:00 PM Reporting Lab: [facility] [address] [place] [address] Performing Lab: [address] [address] APTT 32.1 s 26.7-39.9 Jul 20, 2024 11:18 AM [facility] PT/INR NEW (STL-MA) Specimen Type: PLASMA No comment entered. Ordering Provider: MANUEL BAIRD Report Released Date/Time: Jul 19, 2024 04:00 PM Reporting Lab: [facility] [address] [facility] [address] Performing Lab: [facility] [address] [facility] [address] PROTIME 14.4 s H 9.4-12.5 INR VALUE 1.3 {INR} Jul 20, 2024 11:18 AM [facility] CBC Specimen Type: BLOOD No comment entered. Ordering Provider: MANUEL BAIRD Report Released Date/Time: Jul 19, 2024 04:00 PM Reporting Lab: [facility] [address] [place] [address] Performing Lab: [facility] [address] [facility] [address] WBC 4.7 10*3/uL 3.6-11.2 RBC 4.86 10*6/uL [...] 07:55 PM 98.2 78 106/65 18 96 [facility] Aug 18, 2024 07:20 PM 0 [facility] Aug 18, 2024 01:52 PM 0 [facility] Aug 18, 2024 10:16 AM 97.7 79 133/79 18 95 [facility] Aug 18, 2024 05:41 AM 97 71 136/74 18 96 0 [facility] Advance Directives: All historical and [...] DIRECTIVE DISCUSSION ERICK BARDALES [facility] Encounter Notes: All associated encounter notes This section contains the clinical notes associated to the Encounter. Date/Time Encounter Note(s) Provider Source Aug 18, 2024 01:39 PM [facility] NOTE: LOCAL TITLE: PT DAILY STL STANDARD TITLE: PHYSICAL MEDICINE REHAB NOTE DATE OF NOTE: AUG 18, 2024@13:39 ENTRY DATE: AUG 18, 2024@13:39:11 AUTHOR: GERRY CONRAD EXP COSIGNER: URGENCY: STATUS: COMPLETED PHYSICAL THERAPY: daily TX note TIME: 1300 TOTAL TREATMENT TIME: 30 minutes BILLING: gait x 1, ther-ex x 1 Visit #:5 Missed:0 Eval Date: 08/14/2024 Progress Note Due: [...] status: Full History of Presenting Illness (per [facility] H&P note dated 08/11/24): 74 y.o. yo male w/ PMHx of HTN, HLD, CAD, moderate MR, 2nd degree av block, asthma, JACQUELINE, pHTN, hepatic steatosis, GERD, hiatal hernia, DM Type II (Hgb A1c7.5), hx of pituitary adenoma, and obesity. 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 Interval history Patient is seen [...] at home. PMH: 1) Asthma (SNOMED CT 391384477) 2) Gastro-esophageal reflux disease (SNOMED CT 303201559) 3) Peptic Ulcer Disease * (ICD-9-CM 533.90) 4) Hypertension (SNOMED CT 22999393) 5) Neoplasm of pituitary gland (SNOMED CT 790584701) 6) Hyperlipidemia (SNOMED CT 14297733) 7) Erectile dysfunction associated with type 2 [...] 21) Obstructive Sleep Apnea of Adult (SCT 7419685066793) Equipment Owned: Cane, F22 S: Vet up on bed in room, agreeable to PT TX. Pain: None throughout --Patient goal(s): Pt reports to walk Learning preferences: [x] Verbal, [x] Visual/Demonstration, [] Written O: GAIT TRAIN: - F22 x 350' from room up to therapy gym including on/off elevator, crowd navigation and obstacle avoidance. Vet does have 1 episode of LOB backward, demonstrates stepping response and uses F22 brakes to slow/balance selft. TRANSFER TRAIN: -Improved sit<>Stand and pivot xfers noted this date. Practiced from mat table, nustep and standard chair. Vet able to complete without LOB backward. NUSTEP: -Program 3 (hills) L4 x 12 minutes using BLEs for endurance training, 71 steps per minute. Reviewed weekend walking program HEP. Vet receptive and voices understanding. Reviewed trialing walkasins next week to assess if they improve overall stability with gait. Vet receptive. No further questions/concerns for PT at this time. Vet left up on F22 seat in OT gym for next therapy session. Inpatient Rehab Facility Patient Assessment Instrument [...] 6 Sit to stand: 4 6 6 Chair/ytk-pb-fusur transf: 4 6 6 Toilet transfer: Car [...] Shown significant improvement in understanding and compliance Retsof given 1:1 instruction on: Retsof's goals PT plan of care rationale of PT unit mobility recommendations Equip use/care Exercise program - seated [place] use of DME Home modifications to improve aging in place, RAMP HISA. Vet receptive A: Vet tolerates session well, target RPE met 01/15. Vet showing good carryover from previous sessions. Overall IND with compensatory strategies this date. On track for set DC date. 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
--- OUTSIDE RECORDS SUMMARY | 2024-11-17 04:17 | XMS_ITS ---
[place] DAILY HOSPITALIZATION DATA [facility] Encounter Summary Created on: November 16, 2024 CHET WALKER : 1950 Sex: Male Author Name [facility] [place] [facility] [place] Address [address] [place] [address] Care Team Providers Care Product Safety Specialist Name Role Phone MANUEL BAIRD Primary [...] PART A Apr 08, 2017 PART A [id number] ASHLEY WALKER PATIENT Selected Encounter This section includes the information on record at [place] for the Encounter. Date/Time Encounter Type Encounter Description Reason Pro vider Source Aug 18, 2024 01:52 PM Inpatient Visit DAILY HOSPITALIZATION DATA MARTHA JONES Nav Encounter Template Text not used by [place] [...] 20 appointments. The data comes from all [facility]. Appointment Date/Time Appointment Type Appointme nt Facility Name Aug 24, 2024 10:00 AM AMBULATORY - MEDICINE [facility] Aug 24, 2024 10:30 AM AMBULATORY - MEDICINE [facility] Aug 30, 2024 09:30 AM AMBULATORY - MEDICINE [facility] Aug 31, 2024 01:00 PM AMBULATORY - SURGERY [facility] Sep 21, 2024 01:30 PM AMBULATORY - MEDICINE [facility] Sep 22, 2024 11:00 AM AMBULATORY - MEDICINE [facility] Sep 29, 2024 12:30 PM AMBULATORY - MEDICINE [facility] Oct 02, 2024 09:30 AM AMBULATORY - MEDICINE [facility] Nov 20, 2024 10:30 AM AMBULATORY - SURGERY . [facility] Nov 21, 2024 10:00 AM AMBULATORY - NONE [facility] Dec 11, 2024 10:30 AM AMBULATORY - MEDICINE [facility] Active, Pending, and Scheduled Orders This section includes a listing of several types of active, pending, and scheduled orders, including clinic medications orders, diagnostic test orders, procedure orders and consult orders; where the start date of the order is 45 days before the date of the Encounter or 45 days after the date of theEncounter. The data comes from all [facility]. Test Date/Time Test Type Test Details Facility Name Aug 02, 2024 12:00 AM Laboratory - Chemistry Order CBC BLOOD STAT SP [facility] Aug 02, 2024 12:00 AM Laboratory - Chemistry Order COMPREHENSIVE METABOLIC PANEL GREEN LI/HEP BLD/PLAS PLASMA SP [facility] Aug 17, 2024 03:47 PM Consult Order [facility] Cons Bedside [facility] Lab Results: +/- 30 days [...] 22, 2024 11:26 AM Reporting Lab: [facility] [address] Performing Lab: [facility] [address] MAGNESIUM 1.8 mg/dL 1.6-2.6 Aug 23, 2024 08:21 AM [facility] CBC Specimen Type: BLOOD No comment entered. Ordering Provider: SILVIA REDDY Report Released Date/Time: Aug 22, 2024 11:19 AM Reporting Lab: [facility] [address] Performing Lab: [facility] [address] WBC 4.0 10*3/uL 3.6-11.2 RBC 3.65 10*6/uL [...] Specimen Type: BLOOD Comment: Test Performed by: [id number] Meter #: [id number] Ordering Provider: SILVIA REDDY Report Released Date/Time: Aug 23, 2024 05:23 AM Reporting Lab: [facility] [address] Performing Lab: [facility] [address] GLUCOSE,BLOOD- poct (STL) 99 mg/dL 72-99 Aug 23, 2024 02:45 AM [facility] OCCULT BLOOD FIT X1 SCREEN Specimen Type: FECES No comment entered. Ordering Provider: SIVLIA REDDY Report Released Date/Time: Aug 22, 2024 11:23 AM Reporting Lab: [address] [address] Performing Lab: [address] [address] OCCULT BLOOD (FIT) #1 OF 1 Negative Negative Aug 22, 2024 07:30 PM [facility] OCCULT BLOOD FIT X1 SCREEN Specimen Type: FECES No comment entered. Ordering Provider: SILVIA REDDY Report Released Date/Time: Aug 22, 2024 11:23 AM Reporting Lab: [address] [address] Performing Lab: [place] [address] [facility] [address] OCCULT BLOOD (FIT) #1 OF 1 Negative Negative Aug 22, 2024 06:15 PM [facility] OCCULT BLOOD FIT X1 SCREEN Specimen Type: FECES No comment entered. Ordering Provider: SILVIA REDDY Report Released Date/Time: Aug 22, 2024 11:23 AM Reporting Lab: [address] [address] Performing Lab: [facility] [address] [facility] [address] OCCULT BLOOD (FIT) #1 OF 1 Negative Negative Aug 22, 2024 04:24 PM [facility] GLUCOSE,BLOOD-poct (STL) Specimen Type: BLOOD Comment: Test Performed by: [id number] Meter #: [id number] Ordering Provider: SILVIA REDDY Report Released Date/Time: Aug 22, 2024 04:36 PM Reporting Lab: [facility] [address] Performing Lab: [facility] [address] GLUCOSE,BLOOD- poct (STL) 176 mg/dL H -Aug 22, 2024 04:23 PM [facility] GLUCOSE,BLOOD-poct (STL) Specimen Type: BLOOD Comment: Test Performed by: [id number] Meter #: [id number] Ordering Provider: SILVIA REDDY Report Released Date/Time: Aug 22, 2024 04:36 PM Reporting Lab: [facility] [address] Performing Lab: [facility] [address] GLUCOSE,BLOOD- poct (STL) 221 mg/dL H 72-Aug 22, 2024 11:15 AM [facility] GLUCOSE,BLOOD-poct (STL) Specimen Type: BLOOD Comment: Test Performed by: [id number] Meter #: [id number] Ordering Provider: SILVIA REDDY Report Released Date/Time: Aug 22, 2024 11:27 AM Reporting Lab: [facility] [address] Performing Lab: [facility] [address] GLUCOSE,BLOOD- poct (STL) 140 mg/dL H 72-99 Aug 22, 2024 08:[address] [facility] FERRITIN Specimen Type: SERUM No comment entered. Ordering Provider: JUDIT PERKINS Report Released Date/Time: Aug 18, 2024 11:01 AM Reporting Lab: [facility] [address] [facility] [address] Performing Lab: [facility] [address] [place] [address] FERRITIN 79.50 ng/mL 22-275 Aug 22, 2024 08:03 AM [facility] IRON/TIBC PROFILE Specimen Type: SERUM No comment entered. Ordering Provider: JUDIT PERKINS Report Released Date/Time: Aug 18, 2024 11:01 AM Reporting Lab: [address] [address] Performing Lab: [address] [address] TIBC 283 ug/dL 250-450 TRANSFERRIN 226 mg/dL 163-344 IRON SATURATION 7 L 20-50 IRON 19 ug/dL L 65-175 Aug 22, 2024 08:03 AM [facility] B12 Specimen Type: SERUM No comment entered. Ordering Provider: JUDIT PERKINS Report Released Date/Time: Aug 18, 2024 11:01 AM Reporting Lab: [facility] [address] Performing Lab: [facility] [facility] [address] B12 631 pg/mL 213-816 Aug 22, 2024 08:03 AM [facility] COMPREHENSIVE METABOLIC PANEL Specimen Type: PLASMA Comment: No hemolysis noted. Ordering Provider: SILVIA REDDY Report Released Date/Time: Aug 17, 2024 01:18 PM Reporting Lab: [facility] [address] [facility] [address] Performing Lab: [address] [address] CREATININE 0.80 mg/dL 0.7-1.3 UREA NITROGEN 9.7 [...] >60 Aug 22, 2024 08:03 AM [facility] CBC Specimen Type: BLOOD No comment entered. Ordering Provider: SILVIA REDDY Report Released Date/Time: Aug 17, 2024 01:18 PM Reporting Lab: [facility] [address] Performing Lab: [facility] [address] WBC 3.5 10*3/uL L 3.6-11.2 RBC 3.23 [...] Specimen Type: BLOOD Comment: Test Performed by: [id number] Meter #: [id number] Ordering Provider: SILVIA REDDY Report Released Date/Time: Aug 22, 2024 06:17 AM Reporting Lab: [facility] [address] Performing Lab: [facility] [place] [address] GLUCOSE,BLOOD- poct (STL) 170 mg/dL H 72-Aug 21, 2024 04:32 PM [facility] GLUCOSE,BLOOD-poct (STL) Specimen Type: BLOOD Comment: Test Performed by: [id number] Meter #: [id number] Ordering Provider: SILVIA REDDY Report Released Date/Time: Aug 21, 2024 04:49 PM Reporting Lab: [facility] [address] Performing Lab: [facility] [address] GLUCOSE,BLOOD- poct (STL) 169 mg/dL H -99 Aug 21, 2024 11:53 AM [facility] GLUCOSE,BLOOD-poct (STL) Specimen Type: BLOOD Comment: Test Performed by: [id number] Meter #: [id number] Ordering Provider: SILVIA REDDY Report Released Date/Time: Aug 21, 2024 12:11 PM Reporting Lab: [facility] [facility] [address] Performing Lab: [facility] [address] GLUCOSE,BLOOD- poct (STL) 149 mg/dL H 72-99 Aug 21, 2024 05:10 AM [facility] GLUCOSE,BLOOD-poct (STL) Specimen Type: BLOOD Comment: Test Performed by: [id number] Meter #: [id number] Ordering Provider: SILVIA REDDY Report Released Date/Time: Aug 21, 2024 05:27 AM Reporting Lab: [facility] [place] [address] Performing Lab: [facility] [place] [phone] GLUCOSE,BLOOD- poct (STL) 118 mg/dL H 72-99 Aug 20, 2024 04:38 PM [facility] GLUCOSE,BLOOD-poct (STL) Specimen Type: BLOOD Comment: Test Performed by: [id number] Meter #: [id number] Ordering Provider: SILVIA REDDY Report Released Date/Time: Aug 21, 2024 01:55 AM Reporting Lab: [facility] [place] [address] Performing Lab: [facility] [place] [address] GLUCOSE,BLOOD- poct (STL) 169 mg/dL H 72-99 Aug 20, 2024 04:36 PM [facility] GLUCOSE,BLOOD-poct (STL) Specimen Type: BLOOD Comment: Test Performed by: [id number] Meter #: [id number] Ordering Provider: SILVIA REDDY Report Released Date/Time: Aug 21, 2024 01:55 AM Reporting Lab: [facility] [place] [address] Performing Lab: [facility] [place] [address] GLUCOSE,BLOOD- poct (STL) 395 mg/dL H 72-99 Aug 20, 2024 11:45 AM [facility] GLUCOSE,BLOOD-poct (STL) Specimen Type: BLOOD Comment: Test Performed by: [id number] Meter #: [id number] Ordering Provider: SILVIA REDDY Report Released Date/Time: Aug 20, 2024 11:56 AM Reporting Lab: [facility] [address] Performing Lab: [facility] [facility] [address] GLUCOSE,BLOOD- poct (STL) 169 mg/dL H 72-Aug 20, 2024 05:06 AM [facility] GLUCOSE,BLOOD-poct (STL) Specimen Type: BLOOD Comment: Test Performed by: [id number] Meter #: [id number] Ordering Provider: SILVIA REDDY Report Released Date/Time: Aug 20, 2024 06:05 AM Reporting Lab: [facility] [address] Performing Lab: [facility] [facility] [address] GLUCOSE,BLOOD- poct (STL) 115 mg/dL H 72-Aug 19, 2024 04:23 PM [facility] GLUCOSE,BLOOD-poct (STL) Specimen Type: BLOOD Comment: Test Performed by: [id number] Meter #: [id number] Ordering Provider: SILVIA REDDY Report Released Date/Time: Aug 19, 2024 05:54 PM Reporting Lab: [facility] [address] Performing Lab: [facility] [facility] [address] GLUCOSE,BLOOD- poct (STL) 137 mg/dL H 72-99 Aug 19, 2024 11:28 AM [facility] GLUCOSE,BLOOD-poct (STL) Specimen Type: BLOOD Comment: Test Performed by: [id number] Meter #: [id number] Ordering Provider: SILVIA REDDY Report Released Date/Time: Aug 19, 2024 11:51 AM Reporting Lab: [facility] [address] Performing Lab: [facility] [address] GLUCOSE,BLOOD- poct (STL) 190 mg/dL H 72-99 Aug 19, 2024 05:21 AM [facility] GLUCOSE,BLOOD-poct (STL) Specimen Type: BLOOD Comment: Test Performed by: [id number] Meter #: [id number] Ordering Provider: SILVIA REDDY Report Released Date/Time: Aug 19, 2024 05:56 AM Reporting Lab: [facility] [address] Performing Lab: [facility] [address] GLUCOSE,BLOOD- poct (STL) 130 mg/dL H Aug 18, 2024 04:49 PM [facility] GLUCOSE,BLOOD-poct (STL) Specimen Type: BLOOD Comment: Test Performed by: [id number] Meter #: [id number] Ordering Provider: SILVIA REDDY Report Released Date/Time: Aug 18, 2024 05:01 PM Reporting Lab: [facility] [address] Performing Lab: [facility] [address] GLUCOSE,BLOOD- poct (STL) 129 mg/dL H Aug 18, 2024 11:23 AM [facility] GLUCOSE,BLOOD-poct (STL) Specimen Type: BLOOD Comment: Test Performed by: [id number] Meter #: [id number] Ordering Provider: SILVIA REDDY Report Released Date/Time: Aug 18, 2024 11:41 AM Reporting Lab: [facility] [address] Performing Lab: [facility] [address] GLUCOSE,BLOOD- poct (STL) 180 mg/dL H Aug 18, 2024 05:08 AM [facility] GLUCOSE,BLOOD-poct (STL) Specimen Type: BLOOD Comment: Test Performed by: [id number] Meter #: [id number] Ordering Provider: SILVIA REDDY Report Released Date/Time: Aug 18, 2024 05:31 AM Reporting Lab: [facility] [address] Performing Lab: [facility] [address] GLUCOSE,BLOOD- poct (STL) 127 mg/dL H 72-Aug 17, 2024 07:32 PM [facility] GLUCOSE,BLOOD-poct (STL) Specimen Type: BLOOD Comment: Test Performed by: [id number] Meter #: [id number] Ordering Provider: SILVIA REDDY Report Released Date/Time: Aug 17, 2024 07:59 PM Reporting Lab: [facility] [address] Performing Lab: [facility] [place] [address] GLUCOSE,BLOOD- poct (STL) 154 mg/dL H -Aug 17, 2024 04:24 PM [facility] GLUCOSE,BLOOD-poct (STL) Specimen Type: BLOOD Comment: Test Performed by: [id number] Meter #: [id number] Ordering Provider: SILVIA REDDY Report Released Date/Time: Aug 17, 2024 04:35 PM Reporting Lab: [facility] [place] [phone] Performing Lab: [facility] [place] [address] GLUCOSE,BLOOD- poct (STL) 178 mg/dL H 72-Aug 17, 2024 05:09 AM [facility] GLUCOSE,BLOOD-poct (STL) Specimen Type: BLOOD Comment: Test Performed by: [id number] Meter #: [id number] Ordering Provider: SILVIA REDDY Report Released Date/Time: Aug 17, 2024 05:54 AM Reporting Lab: [facility] [address] Performing Lab: [facility] [address] GLUCOSE,BLOOD- poct (STL) 124 mg/dL H 72-Aug 16, 2024 07:40 PM [facility] GLUCOSE,BLOOD-poct (STL) Specimen Type: BLOOD Comment: Test Performed by: [id number] Meter #: [id number] Ordering Provider: SILVIA REDDY Report Released Date/Time: Aug 16, 2024 08:28 PM Reporting Lab: [facility] [address] Performing Lab: [facility] [address] GLUCOSE,BLOOD- poct (STL) 144 mg/dL H 72-Aug 16, 2024 04:19 PM [facility] GLUCOSE,BLOOD-poct (STL) Specimen Type: BLOOD Comment: Test Performed by: [id number] Meter #: [id number] Ordering Provider: SILVIA REDDY Report Released Date/Time: Aug 16, 2024 04:45 PM Reporting Lab: [facility] [address] Performing Lab: [facility] [address] GLUCOSE,BLOOD- poct (STL) 138 mg/dL H 72-Aug 16, 2024 11:52 AM [facility] GLUCOSE,BLOOD-poct (STL) Specimen Type: BLOOD Comment: Test Performed by: [id number] Meter #: [id number] Ordering Provider: SILVIA REDDY Report Released Date/Time: Aug 16, 2024 12:04 PM Reporting Lab: [facility] [address] Performing Lab: [facility] [address] GLUCOSE,BLOOD- poct (STL) 135 mg/dL H 72-99 Aug 16, 2024 05:24 AM [facility] GLUCOSE,BLOOD-poct (STL) Specimen Type: BLOOD Comment: Test Performed by: [id number] Meter #: [id number] Ordering Provider: SILVIA REDDY Report Released Date/Time: Aug 16, 2024 05:38 AM Reporting Lab: [facility] [address] Performing Lab: [facility] [address] GLUCOSE,BLOOD- poct (STL) 151 mg/dL H Aug 15, 2024 07:31 PM [facility] GLUCOSE,BLOOD-poct (STL) Specimen Type: BLOOD Comment: Test Performed by: [id number] Meter #: [id number] Ordering Provider: SILVIA REDDY Report Released Date/Time: Aug 15, 2024 08:07 PM Reporting Lab: [facility] [address] Performing Lab: [facility] [address] GLUCOSE,BLOOD- poct (STL) 173 mg/dL H Aug 15, 2024 04:18 PM [facility] GLUCOSE,BLOOD-poct (STL) Specimen Type: BLOOD Comment: Test Performed by: [id number] Meter #: [id number] Ordering Provider: SILVIA REDDY Report Released Date/Time: Aug 15, 2024 04:59 PM Reporting Lab: [facility] [address] Performing Lab: [facility] [address] GLUCOSE,BLOOD- poct (STL) 136 mg/dL H Aug 15, 2024 04:16 PM [facility] GLUCOSE,BLOOD-poct (STL) Specimen Type: BLOOD Comment: Test Performed by: [id number] Meter #: [id number] Ordering Provider: SILVIA REDDY Report Released Date/Time: Aug 15, 2024 04:59 PM Reporting Lab: [facility] [place] [address] Performing Lab: [facility] [address] GLUCOSE,BLOOD- poct (STL) 194 mg/dL H 72-Aug 15, 2024 11:39 AM [facility] GLUCOSE,BLOOD-poct (STL) Specimen Type: BLOOD Comment: Test Performed by: [id number] Meter #: [id number] Ordering Provider: SILVIA REDDY Report Released Date/Time: Aug 15, 2024 12:00 PM Reporting Lab: [facility] [place] [address] Performing Lab: [facility] [place] [address] GLUCOSE,BLOOD- poct (STL) 127 mg/dL H 72-Aug 15, 2024 05:07 AM [facility] GLUCOSE,BLOOD-poct (STL) Specimen Type: BLOOD Comment: Test Performed by: [id number] Meter #: [id number] Ordering Provider: SILVIA REDDY Report Released Date/Time: Aug 15, 2024 06:14 AM Reporting Lab: [facility] [place] [address] Performing Lab: [facility] [place] [address] GLUCOSE,BLOOD- poct (STL) 151 mg/dL H 72-Aug 14, 2024 04:22 PM [facility] GLUCOSE,BLOOD-poct (STL) Specimen Type: BLOOD Comment: Test Performed by: [id number] Meter #: [id number] Ordering Provider: SILVIA REDDY Report Released Date/Time: Aug 14, 2024 04:52 PM Reporting Lab: [facility] [address] Performing Lab: [facility] [address] GLUCOSE,BLOOD- poct (STL) 129 mg/dL H 72-99 Aug 14, 2024 11:21 AM [facility] GLUCOSE,BLOOD-poct (STL) Specimen Type: BLOOD Comment: Test Performed by: [id number] Meter #: [id number] Ordering Provider: SILVIA REDDY Report Released Date/Time: Aug 14, 2024 11:37 AM Reporting Lab: [facility] [address] Performing Lab: [facility] [address] GLUCOSE,BLOOD- poct (STL) 135 mg/dL H 72-Aug [...] For additional information, please refer to http://[email or web address] [employer]/faq/WNH841 (This link is being provided for information/ educational purposes only.) Test Performed by [place], [facility], [address] [place] [address] Tommie Garcia M.D., Ph.D., Director of Laboratories , [facility] [id number] Ordering Provider: SILVIA REDDY Report Released Date/Time: Aug 11, 2024 03:58 PM Reporting Lab: [facility] [address] [address] Performing Lab: [facility] [id number] [place] [id number] .NIL - QUANTIFERON 0.04 [IU]/mL .MITOGEN-NIL 0.39 [IU]/mL .QUANTIFERON INDETERMINATE NEGATIVE .TB1-NIL <0.00 [IU]/mL .TB2-NIL <0.00 [IU]/mL Aug 14, 2024 06:59 AM [facility] B12 Specimen Type: SERUM No comment entered. Ordering Provider: SILVIA REDDY Report Released Date/Time: Aug 11, 2024 03:58 PM Reporting Lab: [facility] [address] Performing Lab: [facility] [address] B12 757 pg/mL 213-816 Aug 14, 2024 06:59 AM [facility] FOLATE (STL-[place]) Specimen Type: SERUM No comment entered. Ordering Provider: SILVIA REDDY Report Released Date/Time: Aug 11, 2024 03:58 PM Reporting Lab: [facility] [id number] Performing Lab: [facility] [id number] FOLATE ([facility]) 6.8 ng/mL L 7-20 Aug 14, 2024 06:59 AM [facility] MAGNESIUM Specimen Type: PLASMA Comment: No hemolysis noted. Ordering Provider: SILVIA REDDY Report Released Date/Time: Aug 11, 2024 03:58 PM Reporting Lab: [facility] [phone] Performing Lab: [facility] [phone] MAGNESIUM 1.9 mg/dL 1.6-2.6 Aug 14, 2024 06:59 AM [facility] VITAMIN D, 25-HYDROXY Specimen Type: SERUM No comment entered. Ordering Provider: SILVIA REDDY Report Released Date/Time: Aug 11, 2024 03:58 PM Reporting Lab: [facility] [place] [id number] Performing Lab: [facility] [place] [address] VITAMIN D, 25-HYDROXY 8.9 ng/mL L 30-96 Aug 14, 2024 06:59 AM [facility] COMPREHENSIVE METABOLIC PANEL Specimen Type: PLASMA Comment: No hemolysis noted. Ordering Provider: SILVIA REDDY Report Released Date/Time: Aug 11, 2024 03:58 PM Reporting Lab: [facility] [place] [phone] Performing Lab: [facility] [place] [address] CREATININE 0.75 mg/dL 0.70-1.30 UREA NITROGEN 13.6 [...] 2024 03:58 PM Reporting Lab: [facility] [id number] Performing Lab: [facility] [id number] WBC 4.1 10*3/uL 3.6-11.2 RBC 3.20 10*6/uL [...] 0.00-0.20 Aug 14, 2024 05:08 AM [facility] GLUCOSE,BLOOD-poct (STL) Specimen Type: BLOOD Comment: Test Performed by: [id number] Meter #: [id number] Ordering Provider: SILVIA REDDY Report Released Date/Time: Aug 14, 2024 05:52 AM Reporting Lab: [facility] [address] Performing Lab: [facility] [address] GLUCOSE,BLOOD- poct (STL) 135 mg/dL H 72-99 Aug 13, 2024 04:27 PM [facility] GLUCOSE,BLOOD-poct (STL) Specimen Type: BLOOD Comment: Test Performed by: [id number] Meter #: [id number] Ordering Provider: SILVIA REDDY Report Released Date/Time: Aug 13, 2024 04:41 PM Reporting Lab: [facility] [address] Performing Lab: [facility] [address] GLUCOSE,BLOOD- poct (STL) 181 mg/dL H -Aug 13, 2024 11:33 AM [facility] GLUCOSE,BLOOD-poct (STL) Specimen Type: BLOOD Comment: Test Performed by: [id number] Meter #: [id number] Ordering Provider: SILVIA REDDY Report Released Date/Time: Aug 13, 2024 03:55 PM Reporting Lab: [facility] [address] Performing Lab: [facility] [address] GLUCOSE,BLOOD- poct (STL) 140 mg/dL H -Aug 13, 2024 05:54 AM [facility] GLUCOSE,BLOOD-poct (STL) Specimen Type: BLOOD Comment: Test Performed by: [id number] Meter #: [id number] Ordering Provider: SILVIA REDDY Report Released Date/Time: Aug 13, 2024 06:20 AM Reporting Lab: [facility] [address] Performing Lab: [facility] [address] GLUCOSE,BLOOD- poct (STL) 112 mg/dL H Aug 12, 2024 04:35 PM [facility] GLUCOSE,BLOOD-poct (STL) Specimen Type: BLOOD Comment: Test Performed by: [id number] Meter #: [id number] Ordering Provider: SILVIA REDDY Report Released Date/Time: Aug 12, 2024 04:47 PM Reporting Lab: [facility] [address] Performing Lab: [facility] [address] GLUCOSE,BLOOD- poct (STL) 128 mg/dL H 72-99 Aug 12, 2024 11:26 AM [facility] GLUCOSE,BLOOD-poct (STL) Specimen Type: BLOOD Comment: Test Performed by: [id number] Meter #: [id number] Ordering Provider: SILVIA REDDY Report Released Date/Time: Aug 12, 2024 11:45 AM Reporting Lab: [facility] [address] Performing Lab: [facility] [place] [address] GLUCOSE,BLOOD- poct (STL) 188 mg/dL H 72-Aug 12, 2024 06:13 AM [facility] GLUCOSE,BLOOD-poct (STL) Specimen Type: BLOOD Comment: Test Performed by: [id number] Meter #: [id number] Ordering Provider: SILVIA REDDY Report Released Date/Time: Aug 12, 2024 06:25 AM Reporting Lab: [facility] [address] Performing Lab: [facility] [address] GLUCOSE,BLOOD- poct (STL) 116 mg/dL H 72-99 Aug 11, 2024 04:10 PM [facility] GLUCOSE,BLOOD-poct (STL) Specimen Type: BLOOD Comment: Test Performed by: [id number] Meter #: [id number] Ordering Provider: SILVIA REDDY Report Released Date/Time: Aug 11, 2024 04:27 PM Reporting Lab: [facility] [place] [address] Performing Lab: [facility] [address] GLUCOSE,BLOOD- poct (STL) 184 mg/dL H 72-99 [...] Aug 11, 2024 02:03 PM Reporting Lab: [address] [address] Performing Lab: [address] [address] MRSA SURVL NARES DNA Negative Negative Jul 20, 2024 11:18 AM [facility] APTT Specimen Type: PLASMA No comment entered. Ordering Provider: MANUEL BAIRD Report Released Date/Time: Jul 19, 2024 04:00 PM Reporting Lab: [address] [address] Performing Lab: [address] [address] APTT 32.1 s 26.7-39.9 Jul 20, 2024 11:18 AM [facility] PT/INR NEW (L-NH) Specimen Type: PLASMA No comment entered. Ordering Provider: MANUEL BAIRD Report Released Date/Time: Jul 19, 2024 04:00 PM Reporting Lab: [address] [address] Performing Lab: [address] [address] PROTIME 14.4 s H 9.4-12.5 INR VALUE 1.3 {INR} Jul 20, 2024 11:18 AM [facility] CBC Specimen Type: BLOOD No comment entered. Ordering Provider: MANUEL BAIRD Report Released Date/Time: Jul 19, 2024 04:00 PM Reporting Lab: [facility] [address] [facility] [address] Performing Lab: [facility] [address] [facility] [address] WBC 4.7 10*3/uL 3.6-11.2 RBC 4.86 10*6/uL [...] 07:55 PM 98.2 78 106/65 18 96 [facility] Aug 18, 2024 07:20 PM 0 [facility] Aug 18, 2024 01:52 PM 0 [facility] Aug 18, 2024 10:16 AM 97.7 79 133/79 18 95 [facility] Aug 18, 2024 05:41 AM 97 71 136/74 18 96 0 [facility] Advance Directives: All historical and [...]
--- OUTSIDE RECORDS SUMMARY | 2024-11-17 04:18 | XMS_ITS ---
[place] DAILY HOSPITALIZATION DATA 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 Date/Time Encounter Type Encounter Description Reason Pro vider Source Aug 19, 2024 08:52 AM Inpatient Visit DAILY HOSPITALIZATION DATA MARTHA JONES Nav Encounter Template Text not used by [place] Plan of Treatment: Future Appointments (+ 6 [...] 10:00 AM AMBULATORY - MEDICINE [facility] Aug 24, 2024 10:30 AM AMBULATORY - MEDICINE [facility] Aug 30, 2024 09:30 AM AMBULATORY - MEDICINE [facility] Aug 31, 2024 01:00 PM AMBULATORY - SURGERY [facility] Sep 21, 2024 01:30 PM AMBULATORY - MEDICINE [facility] Sep 22, 2024 11:00 AM [facility] Sep 29, 2024 12:30 PM [facility] Oct 02, 2024 09:30 AM AMBULATORY - MEDICINE [facility] Nov 20, 2024 10:30 AM AMBULATORY - SURGERY . [facility] Nov 21, 2024 10:00 AM AMBULATORY - NONE [facility] Dec 11, 2024 10:30 AM [facility] Active, [...] Chemistry Order CBC BLOOD STAT [facility] Aug 02, 2024 12:00 AM Laboratory - Chemistry Order COMPREHENSIVE METABOLIC PANEL GREEN LI/HEP BLD/PLAS PLASMA [facility] Aug 17, 2024 03:47 PM Consult Order [facility] Cons Bedside [facility] Lab Results: +/- 30 days of [...] Aug 23, 2024 08:21 AM [facility] MAGNESIUM Specimen Type: PLASMA No comment entered. Ordering Provider: SILVIA REDDY Report Released Date/Time: Aug 22, 2024 11:26 AM Reporting Lab: [facility] [address] Performing Lab: [facility] [address] MAGNESIUM 1.8 mg/dL 1.6-2.6 Aug 23, 2024 08:21 AM [facility] CBC Specimen Type: BLOOD No comment entered. Ordering Provider: SILVIA REDDY Report Released Date/Time: Aug 22, 2024 11:19 AM Reporting Lab: [facility] [address] Performing Lab: [facility] [address] WBC 4.0 10*3/uL 3.6-11.2 RBC 3.65 10*6/uL [...] 10*3/uL 0.00-0.20 Aug 23, 2024 05:12 AM [facility] GLUCOSE,BLOOD-poct (STL) Specimen Type: BLOOD Comment: Test Performed by: [id number] Meter #: [id number] Ordering Provider: SILVIA REDDY Report Released Date/Time: Aug 23, 2024 05:23 AM Reporting Lab: [facility] [address] Performing Lab: [facility] [address] GLUCOSE,BLOOD- poct (STL) 99 mg/dL 72-99 Aug 23, 2024 02:45 AM [facility] OCCULT BLOOD FIT X1 SCREEN Specimen Type: FECES No comment entered. Ordering Provider: SILVIA REDDY Report Released Date/Time: Aug 22, 2024 11:23 AM Reporting Lab: [address] [address] Performing Lab: [address] [address] OCCULT BLOOD (FIT) #1 OF 1 Negative Negative Aug 22, 2024 07:30 PM [facility] OCCULT BLOOD FIT X1 SCREEN Specimen Type: FECES No comment entered. Ordering Provider: SILVIA REDDY Report Released Date/Time: Aug 22, 2024 11:23 AM Reporting Lab: [address] [address] Performing Lab: [place] [address] [facility] [address] OCCULT BLOOD (FIT) #1 OF 1 Negative Negative Aug 22, 2024 06:15 PM [facility] OCCULT BLOOD FIT X1 SCREEN Specimen Type: FECES No comment entered. Ordering Provider: SILVIA REDDY Report Released Date/Time: Aug 22, 2024 11:23 AM Reporting Lab: [address] [address] Performing Lab: [facility] [address] [facility] [address] OCCULT BLOOD (FIT) #1 OF 1 Negative Negative Aug 22, 2024 04:24 PM [facility] GLUCOSE,BLOOD-poct (STL) Specimen Type: BLOOD Comment: Test Performed by: [id number] Meter #: [id number] Ordering Provider: SILVIA REDDY Report Released Date/Time: Aug 22, 2024 04:36 PM Reporting Lab: [facility] [address] Performing Lab: [facility] [address] GLUCOSE,BLOOD- poct (STL) 176 mg/dL H -Aug 22, 2024 04:23 PM [facility] GLUCOSE,BLOOD-poct (STL) Specimen Type: BLOOD Comment: Test Performed by: [id number] Meter #: [id number] Ordering Provider: SILVIA REDDY Report Released Date/Time: Aug 22, 2024 04:36 PM Reporting Lab: [facility] [address] Performing Lab: [facility] [address] GLUCOSE,BLOOD- poct (STL) 221 mg/dL H 72-Aug 22, 2024 11:15 AM [facility] GLUCOSE,BLOOD-poct (STL) Specimen Type: BLOOD Comment: Test Performed by: [id number] Meter #: [id number] Ordering Provider: SILVIA REDDY Report Released Date/Time: Aug 22, 2024 11:27 AM Reporting Lab: [facility] [address] Performing Lab: [facility] [address] GLUCOSE,BLOOD- poct (STL) 140 mg/dL H 72-99 Aug 22, 2024 08:03 AM [facility] FERRITIN Specimen Type: SERUM No comment entered. Ordering Provider: JUDIT PERKINS Report Released Date/Time: Aug 18, 2024 11:01 AM Reporting Lab: [facility] [address] [facility] [address] Performing Lab: [facility] [address] [facility] [address] FERRITIN 79.50 ng/mL 22-275 Aug 22, 2024 08:03 AM [facility] B12 Specimen Type: SERUM No comment entered. Ordering Provider: JUDIT PERKINS Report Released Date/Time: Aug 18, 2024 11:01 AM Reporting Lab: [facility] [address] Performing Lab: [facility] [address] B12 631 pg/mL 213-816 Aug 22, 2024 08:03 AM [facility] IRON/TIBC PROFILE Specimen Type: SERUM No comment entered. Ordering Provider: JUDIT PERKINS Report Released Date/Time: Aug 18, 2024 11:01 AM Reporting Lab: [place] [id number] [facility] [address] Performing Lab: [address] [address] TIBC 283 ug/dL 250-450 TRANSFERRIN 226 mg/dL 163-344 IRON SATURATION 7 L 20-50 IRON 19 ug/dL L 65-175 Aug 22, 2024 08:03 AM [facility] COMPREHENSIVE METABOLIC PANEL Specimen Type: PLASMA Comment: No hemolysis noted. Ordering Provider: SILVIA REDDY Report Released Date/Time: Aug 17, 2024 01:18 PM Reporting Lab: [facility] [address] [facility] [address] Performing Lab: [address] [address] CREATININE 0.80 mg/dL 0.7-1.3 UREA NITROGEN 9.7 [...] Aug 22, 2024 08:03 AM [facility] CBC Specimen Type: BLOOD No comment entered. Ordering Provider: SILVIA REDDY Report Released Date/Time: Aug 17, 2024 01:18 PM Reporting Lab: [facility] [address] Performing Lab: [facility] [address] WBC 3.5 10*3/uL L 3.6-11.2 RBC 3.23 [...] NRBC% 0 Aug 22, 2024 05:03 AM [facility] GLUCOSE,BLOOD-poct (STL) Specimen Type: BLOOD Comment: Test Performed by: [id number] Meter #: [id number] Ordering Provider: SILVIA REDDY Report Released Date/Time: Aug 22, 2024 06:17 AM Reporting Lab: [facility] [address] Performing Lab: [facility] [place] [address] GLUCOSE,BLOOD- poct (STL) 170 mg/dL H 72-Aug 21, 2024 04:32 PM [facility] GLUCOSE,BLOOD-poct (STL) Specimen Type: BLOOD Comment: Test Performed by: [id number] Meter #: [id number] Ordering Provider: SILVIA REDDY Report Released Date/Time: Aug 21, 2024 04:49 PM Reporting Lab: [facility] [address] Performing Lab: [facility] [address] GLUCOSE,BLOOD- poct (STL) 169 mg/dL H -99 Aug 21, 2024 11:53 AM [facility] GLUCOSE,BLOOD-poct (STL) Specimen Type: BLOOD Comment: Test Performed by: [id number] Meter #: [id number] Ordering Provider: SILVIA REDDY Report Released Date/Time: Aug 21, 2024 12:11 PM Reporting Lab: [facility] [address] Performing Lab: [facility] [address] GLUCOSE,BLOOD- poct (STL) 149 mg/dL H 72-99 Aug 21, 2024 05:10 AM [facility] GLUCOSE,BLOOD-poct (STL) Specimen Type: BLOOD Comment: Test Performed by: [id number] Meter #: [id number] Ordering Provider: SILVIA REDDY Report Released Date/Time: Aug 21, 2024 05:27 AM Reporting Lab: [facility] [address] [place] [address] Performing Lab: [facility] [address] [place] [phone] GLUCOSE,BLOOD- poct (STL) 118 mg/dL H 72-99 Aug 20, 2024 04:38 PM [facility] GLUCOSE,BLOOD-poct (STL) Specimen Type: BLOOD Comment: Test Performed by: [id number] Meter #: [id number] Ordering Provider: SILVIA REDDY Report Released Date/Time: Aug 21, 2024 01:55 AM Reporting Lab: [facility] [place] [address] Performing Lab: [facility] [address] [place] [address] GLUCOSE,BLOOD- poct (STL) 169 mg/dL H 72-99 Aug 20, 2024 04:36 PM [facility] GLUCOSE,BLOOD-poct (STL) Specimen Type: BLOOD Comment: Test Performed by: [id number] Meter #: [id number] Ordering Provider: SILVIA REDDY Report Released Date/Time: Aug 21, 2024 01:55 AM Reporting Lab: [facility] [place] [address] Performing Lab: [facility] [place] [address] GLUCOSE,BLOOD- poct (STL) 395 mg/dL H 72-99 Aug 20, 2024 11:45 AM [facility] GLUCOSE,BLOOD-poct (STL) Specimen Type: BLOOD Comment: Test Performed by: [id number] Meter #: [id number] Ordering Provider: SILVIA REDDY Report Released Date/Time: Aug 20, 2024 11:56 AM Reporting Lab: [facility] [address] Performing Lab: [facility] [address] GLUCOSE,BLOOD- poct (STL) 169 mg/dL H 72-Aug 20, 2024 05:06 AM [facility] GLUCOSE,BLOOD-poct (STL) Specimen Type: BLOOD Comment: Test Performed by: [id number] Meter #: [id number] Ordering Provider: SILVIA REDDY Report Released Date/Time: Aug 20, 2024 06:05 AM Reporting Lab: [facility] [address] Performing Lab: [facility] [address] GLUCOSE,BLOOD- poct (STL) 115 mg/dL H 72-Aug 19, 2024 04:23 PM [facility] GLUCOSE,BLOOD-poct (STL) Specimen Type: BLOOD Comment: Test Performed by: [id number] Meter #: [id number] Ordering Provider: SILVIA REDDY Report Released Date/Time: Aug 19, 2024 05:54 PM Reporting Lab: [facility] [address] Performing Lab: [facility] [address] GLUCOSE,BLOOD- poct (STL) 137 mg/dL H 72-99 Aug 19, 2024 11:28 AM [facility] GLUCOSE,BLOOD-poct (STL) Specimen Type: BLOOD Comment: Test Performed by: [id number] Meter #: [id number] Ordering Provider: SILVIA REDDY Report Released Date/Time: Aug 19, 2024 11:51 AM Reporting Lab: [facility] [address] Performing Lab: [facility] [address] GLUCOSE,BLOOD- poct (STL) 190 mg/dL H 72-99 Aug 19, 2024 05:21 AM [facility] GLUCOSE,BLOOD-poct (STL) Specimen Type: BLOOD Comment: Test Performed by: [id number] Meter #: [id number] Ordering Provider: SILVIA REDDY Report Released Date/Time: Aug 19, 2024 05:56 AM Reporting Lab: [facility] [address] Performing Lab: [facility] [address] GLUCOSE,BLOOD- poct (STL) 130 mg/dL H Aug 18, 2024 04:49 PM [facility] GLUCOSE,BLOOD-poct (STL) Specimen Type: BLOOD Comment: Test Performed by: [id number] Meter #: [id number] Ordering Provider: SILVIA REDDY Report Released Date/Time: Aug 18, 2024 05:01 PM Reporting Lab: [facility] [address] Performing Lab: [facility] [address] GLUCOSE,BLOOD- poct (STL) 129 mg/dL H Aug 18, 2024 11:23 AM [facility] GLUCOSE,BLOOD-poct (STL) Specimen Type: BLOOD Comment: Test Performed by: [id number] Meter #: [id number] Ordering Provider: SILVIA REDDY Report Released Date/Time: Aug 18, 2024 11:41 AM Reporting Lab: [facility] [address] Performing Lab: [facility] [address] GLUCOSE,BLOOD- poct (STL) 180 mg/dL H Aug 18, 2024 05:08 AM [facility] GLUCOSE,BLOOD-poct (STL) Specimen Type: BLOOD Comment: Test Performed by: [id number] Meter #: [id number] Ordering Provider: SILVIA REDDY Report Released Date/Time: Aug 18, 2024 05:31 AM Reporting Lab: [facility] [address] Performing Lab: [facility] [address] GLUCOSE,BLOOD- poct (STL) 127 mg/dL H 72-Aug 17, 2024 07:32 PM [facility] GLUCOSE,BLOOD-poct (STL) Specimen Type: BLOOD Comment: Test Performed by: [id number] Meter #: [id number] Ordering Provider: SILVIA REDDY Report Released Date/Time: Aug 17, 2024 07:59 PM Reporting Lab: [facility] [address] Performing Lab: [facility] [place] [address] GLUCOSE,BLOOD- poct (STL) 154 mg/dL H -Aug 17, 2024 04:24 PM [facility] GLUCOSE,BLOOD-poct (STL) Specimen Type: BLOOD Comment: Test Performed by: [id number] Meter #: [id number] Ordering Provider: SILVIA REDDY Report Released Date/Time: Aug 17, 2024 04:35 PM Reporting Lab: [facility] [place] [phone] Performing Lab: [facility] [place] [address] GLUCOSE,BLOOD- poct (STL) 178 mg/dL H 72-Aug 17, 2024 05:09 AM [facility] GLUCOSE,BLOOD-poct (STL) Specimen Type: BLOOD Comment: Test Performed by: [id number] Meter #: [id number] Ordering Provider: SILVIA REDDY Report Released Date/Time: Aug 17, 2024 05:54 AM Reporting Lab: [facility] [address] Performing Lab: [facility] [address] GLUCOSE,BLOOD- poct (STL) 124 mg/dL H 72-Aug 16, 2024 07:40 PM [facility] GLUCOSE,BLOOD-poct (STL) Specimen Type: BLOOD Comment: Test Performed by: [id number] Meter #: [id number] Ordering Provider: SILVIA REDDY Report Released Date/Time: Aug 16, 2024 08:28 PM Reporting Lab: [facility] [address] Performing Lab: [facility] [address] GLUCOSE,BLOOD- poct (STL) 144 mg/dL H 72-Aug 16, 2024 04:19 PM [facility] GLUCOSE,BLOOD-poct (STL) Specimen Type: BLOOD Comment: Test Performed by: [id number] Meter #: [id number] Ordering Provider: SILVIA REDDY Report Released Date/Time: Aug 16, 2024 04:45 PM Reporting Lab: [facility] [address] Performing Lab: [facility] [address] GLUCOSE,BLOOD- poct (STL) 138 mg/dL H 72-Aug 16, 2024 11:52 AM [facility] GLUCOSE,BLOOD-poct (STL) Specimen Type: BLOOD Comment: Test Performed by: [id number] Meter #: [id number] Ordering Provider: SILVIA REDDY Report Released Date/Time: Aug 16, 2024 12:04 PM Reporting Lab: [facility] [address] Performing Lab: [facility] [address] GLUCOSE,BLOOD- poct (STL) 135 mg/dL H 72-99 Aug 16, 2024 05:24 AM [facility] GLUCOSE,BLOOD-poct (STL) Specimen Type: BLOOD Comment: Test Performed by: [id number] Meter #: [id number] Ordering Provider: SILVIA REDDY Report Released Date/Time: Aug 16, 2024 05:38 AM Reporting Lab: [facility] [address] Performing Lab: [facility] [address] GLUCOSE,BLOOD- poct (STL) 151 mg/dL H Aug 15, 2024 07:31 PM [facility] GLUCOSE,BLOOD-poct (STL) Specimen Type: BLOOD Comment: Test Performed by: [id number] Meter #: [id number] Ordering Provider: SILVIA REDDY Report Released Date/Time: Aug 15, 2024 08:07 PM Reporting Lab: [facility] [address] Performing Lab: [facility] [address] GLUCOSE,BLOOD- poct (STL) 173 mg/dL H Aug 15, 2024 04:18 PM [facility] GLUCOSE,BLOOD-poct (STL) Specimen Type: BLOOD Comment: Test Performed by: [id number] Meter #: [id number] Ordering Provider: SILVIA REDDY Report Released Date/Time: Aug 15, 2024 04:59 PM Reporting Lab: [facility] [address] Performing Lab: [facility] [address] GLUCOSE,BLOOD- poct (STL) 136 mg/dL H Aug 15, 2024 04:16 PM [facility] GLUCOSE,BLOOD-poct (STL) Specimen Type: BLOOD Comment: Test Performed by: [id number] Meter #: [id number] Ordering Provider: SILVIA REDDY Report Released Date/Time: Aug 15, 2024 04:59 PM Reporting Lab: [facility] [place] [address] Performing Lab: [facility] [address] GLUCOSE,BLOOD- poct (STL) 194 mg/dL H 72-Aug 15, 2024 11:39 AM [facility] GLUCOSE,BLOOD-poct (STL) Specimen Type: BLOOD Comment: Test Performed by: [id number] Meter #: [id number] Ordering Provider: SILVIA REDDY Report Released Date/Time: Aug 15, 2024 12:00 PM Reporting Lab: [facility] [place] [address] Performing Lab: [facility] [place] [address] GLUCOSE,BLOOD- poct (STL) 127 mg/dL H 72-Aug 15, 2024 05:07 AM [facility] GLUCOSE,BLOOD-poct (STL) Specimen Type: BLOOD Comment: Test Performed by: [id number] Meter #: [id number] Ordering Provider: SILVIA REDDY Report Released Date/Time: Aug 15, 2024 06:14 AM Reporting Lab: [facility] [place] [address] Performing Lab: [facility] [place] [address] GLUCOSE,BLOOD- poct (STL) 151 mg/dL H 72-Aug 14, 2024 04:22 PM [facility] GLUCOSE,BLOOD-poct (STL) Specimen Type: BLOOD Comment: Test Performed by: [id number] Meter #: [id number] Ordering Provider: SILVIA REDDY Report Released Date/Time: Aug 14, 2024 04:52 PM Reporting Lab: [facility] [address] Performing Lab: [facility] [address] GLUCOSE,BLOOD- poct (STL) 129 mg/dL H 72-99 Aug 14, 2024 11:21 AM [facility] GLUCOSE,BLOOD-poct (STL) Specimen Type: BLOOD Comment: Test Performed by: [id number] Meter #: [id number] Ordering Provider: SILVIA REDDY Report Released Date/Time: Aug 14, 2024 11:37 AM Reporting Lab: [facility] [address] Performing Lab: [facility] [address] GLUCOSE,BLOOD- poct (STL) 135 mg/dL H 72-Aug 14, 2024 06:59 AM [facility] QUANTIFERON-TB,4 TUBE Specimen Type: BLOOD Comment: [...] For additional information, please refer to http://education. Advaxis/faq/PYN598 (This link is being provided for information/ educational purposes only.) Test Performed by [employer] [place], [facility], [address] [place] [address] Tommie Garcia M.D., Ph.D., Director of Laboratories , [facility] [id number] Ordering Provider: SILVIA REDDY Report Released Date/Time: Aug 11, 2024 03:58 PM Reporting Lab: [facility] [address] [facility] [address] Performing Lab: [facility] [id number] [place] [address] .NIL - QUANTIFERON 0.04 [IU]/mL .MITOGEN-NIL 0.39 [IU]/mL .QUANTIFERON INDETERMINATE NEGATIVE .TB1-NIL <0.00 [IU]/mL .TB2-NIL <0.00 [IU]/mL Aug 14, 2024 06:59 AM [facility] MAGNESIUM Specimen Type: PLASMA Comment: No hemolysis noted. Ordering Provider: SILVIA REDDY Report Released Date/Time: Aug 11, 2024 03:58 PM Reporting Lab: [facility] [address] Performing Lab: [facility] [address] MAGNESIUM 1.9 mg/dL 1.6-2.6 Aug 14, 2024 06:59 AM [facility] B12 Specimen Type: SERUM No comment entered. Ordering Provider: SILVIA REDDY Report Released Date/Time: Aug 11, 2024 03:58 PM Reporting Lab: [facility] [address] Performing Lab: [facility] [address] B12 757 pg/mL 213-816 Aug 14, 2024 06:59 AM [facility] FOLATE (STL-MA) Specimen Type: SERUM No comment entered. Ordering Provider: SILVIA REDDY Report Released Date/Time: Aug 11, 2024 03:58 PM Reporting Lab: [facility] [address] Performing Lab: [facility] [address] FOLATE (STL-MA) 6.8 ng/mL L 7-20 Aug 14, 2024 06:59 AM [facility] VITAMIN D, 25-HYDROXY Specimen Type: SERUM No comment entered. Ordering Provider: SILVIA REDDY Report Released Date/Time: Aug 11, 2024 03:58 PM Reporting Lab: [facility] [address] Performing Lab: [facility] [address] VITAMIN D, 25-HYDROXY 8.9 ng/mL L 30-96 Aug 14, 2024 06:59 AM [facility] COMPREHENSIVE METABOLIC PANEL Specimen Type: PLASMA Comment: No hemolysis noted. Ordering Provider: SILVIA REDDY Report Released Date/Time: Aug 11, 2024 03:58 PM Reporting Lab: [facility] [address] Performing Lab: [facility] [address] CREATININE 0.75 mg/dL 0.70-1.30 UREA NITROGEN 13.6 [...] 95.88 >60 Aug 14, 2024 06:59 AM [facility] CBC Specimen Type: BLOOD No comment entered. Ordering Provider: SILVIA REDDY Report Released Date/Time: Aug 11, 2024 03:58 PM Reporting Lab: [facility] [address] Performing Lab: [facility] [address] WBC 4.1 10*3/uL 3.6-11.2 RBC 3.20 10*6/uL [...] 0.00-0.20 Aug 14, 2024 05:08 AM [facility] GLUCOSE,BLOOD-poct (STL) Specimen Type: BLOOD Comment: Test Performed by: [id number] Meter #: [id number] Ordering Provider: SILVIA REDDY Report Released Date/Time: Aug 14, 2024 05:52 AM Reporting Lab: [facility] [address] Performing Lab: [facility] [address] GLUCOSE,BLOOD- poct (STL) 135 mg/dL H 72-99 Aug 13, 2024 04:27 PM [facility] GLUCOSE,BLOOD-poct (STL) Specimen Type: BLOOD Comment: Test Performed by: [id number] Meter #: [id number] Ordering Provider: SILVIA REDDY Report Released Date/Time: Aug 13, 2024 04:41 PM Reporting Lab: [facility] [address] Performing Lab: [email or web address] [address] GLUCOSE,BLOOD- poct (STL) 181 mg/dL H -Aug 13, 2024 11:33 AM [facility] GLUCOSE,BLOOD-poct (STL) Specimen Type: BLOOD Comment: Test Performed by: [id number] Meter #: [id number] Ordering Provider: SILVIA REDDY Report Released Date/Time: Aug 13, 2024 03:55 PM Reporting Lab: [facility] [address] Performing Lab: [email or web address] [address] GLUCOSE,BLOOD- poct (STL) 140 mg/dL H -Aug 13, 2024 05:54 AM [facility] GLUCOSE,BLOOD-poct (STL) Specimen Type: BLOOD Comment: Test Performed by: [id number] Meter #: [id number] Ordering Provider: SILVIA REDDY Report Released Date/Time: Aug 13, 2024 06:20 AM Reporting Lab: [facility] [address] Performing Lab: [facility] [address] GLUCOSE,BLOOD- poct (STL) 112 mg/dL H Aug 12, 2024 04:35 PM [facility] GLUCOSE,BLOOD-poct (STL) Specimen Type: BLOOD Comment: Test Performed by: [id number] Meter #: [id number] Ordering Provider: SILVIA REDDY Report Released Date/Time: Aug 12, 2024 04:47 PM Reporting Lab: [facility] [address] Performing Lab: [facility] [address] GLUCOSE,BLOOD- poct (STL) 128 mg/dL H 72-99 Aug 12, 2024 11:26 AM [facility] GLUCOSE,BLOOD-poct (STL) Specimen Type: BLOOD Comment: Test Performed by: [id number] Meter #: [id number] Ordering Provider: SILVIA REDDY Report Released Date/Time: Aug 12, 2024 11:45 AM Reporting Lab: [facility] [address] Performing Lab: [facility] [place] [address] GLUCOSE,BLOOD- poct (STL) 188 mg/dL H 72-Aug 12, 2024 06:13 AM [facility] GLUCOSE,BLOOD-poct (STL) Specimen Type: BLOOD Comment: Test Performed by: [id number] Meter #: [id number] Ordering Provider: SILVIA REDDY Report Released Date/Time: Aug 12, 2024 06:25 AM Reporting Lab: [facility] [address] Performing Lab: [facility] [address] GLUCOSE,BLOOD- poct (STL) 116 mg/dL H 72-99 Aug 11, 2024 04:10 PM [facility] GLUCOSE,BLOOD-poct (STL) Specimen Type: BLOOD Comment: Test Performed by: [id number] Meter #: [id number] Ordering Provider: SILVIA REDDY Report Released Date/Time: Aug 11, 2024 04:27 PM Reporting Lab: [facility] [place] [address] Performing Lab: [facility] [address] GLUCOSE,BLOOD- poct (STL) 184 mg/dL H 72-99 Aug 11, 2024 01:44 PM [facility] [...] Aug 11, 2024 02:03 PM Reporting Lab: [address] [address] Performing Lab: [address] [address] MRSA SURVL NARES DNA Negative Negative Vital Signs: All taken on the encounter date This section contains inpatient and outpatient Vital Signs collected on the date of the Encounter. Date/Time Temperature Pulse Blood Pressure Respiratory Rate SP02 Pain Height Weight Body Mass Index Source Aug 19, 2024 07:31 PM 98.1 89 174/79 18 97 [facility] Aug 19, 2024 06:27 PM 0 [facility] Aug 19, 2024 10:00 AM 97.8 72 130/74 18 96 [facility] Aug 19, 2024 09:16 AM 0 [facility] Aug 19, 2024 05:26 AM 213.8 31 [facility] Advance Directives: All [...]
--- OUTSIDE RECORDS SUMMARY | 2024-11-17 04:18 | XMS_ITS ---
[place] DAILY HOSPITALIZATION DATA [facility] Encounter Summary Created on: November 16, 2024 CHET WALKER : 1950 Sex: Male Author Name [facility] [place] [facility] [place] Address [address] [place] [address] Care Team Providers Care School Psychologist Assistant Name Role Phone MANUEL BAIRD Primary [...] PART A Apr 08, 2017 PART A [id number] ASHLEY WALKER PATIENT Selected Encounter This section includes the information on record at [place] for the Encounter. Date/Time Encounter Type Encounter Description Reason Pro vider Source Aug 19, 2024 01:37 AM Inpatient Visit DAILY HOSPITALIZATION DATA [facility] [...] 30, 2024 09:[address] [facility] Aug 31, 2024 01:00 PM AMBULATORY - SUR[facility]ERY [facility] Sep 21, 2024 01:30 PM AMBULATORY - MEDICINE [facility] Sep 22, 2024 11:00 AM AMBULATORY - MEDICINE [facility] Sep 29, 2024 12:30 PM AMBULATORY - MEDICINE [facility] Oct 02, 2024 09:30 AM AMBULATORY - MEDICINE [facility] Nov 20, 2024 10:30 AM AMBULATORY - SURGERY [facility] Nov 21, 2024 10:00 AM AMBULATORY - [...] PLASMA SP [facility] Aug 17, 2024 03:47 PM Consult Order [facility] SKILLED HOME CARE [facility] Cons Bedside [facility] Lab Results: [...] Range Comment Aug 23, 2024 08:21 AM [facility] MAGNESIUM Specimen Type: PLASMA No comment entered. Ordering Provider: SILVIA REDDY Report Released Date/Time: Aug 22, 2024 11:26 AM Reporting Lab: [facility] [address] Performing Lab: [facility] [address] MAGNESIUM 1.8 mg/dL 1.6-2.6 Aug 23, 2024 08:21 AM [facility] CBC Specimen Type: BLOOD No comment entered. Ordering Provider: SILVIA REDDY Report Released Date/Time: Aug 22, 2024 11:19 AM Reporting Lab: [facility] [address] Performing Lab: [facility] [address] WBC 4.0 10*3/uL 3.6-11.2 RBC 3.65 10*6/uL [...] 10*3/uL 0.00-0.20 Aug 23, 2024 05:12 AM [facility] GLUCOSE,BLOOD-poct (STL) Specimen Type: BLOOD Comment: Test Performed by: [id number] Meter #: [id number] Ordering Provider: SILVIA REDDY Report Released Date/Time: Aug 23, 2024 05:23 AM Reporting Lab: [facility] [address] Performing Lab: [facility] #1 [facility] [address] GLUCOSE,BLOOD- poct (STL) 99 mg/dL 72-99 Aug 23, 2024 02:45 AM [facility] OCCULT BLOOD FIT X1 SCREEN Specimen Type: FECES No comment entered. Ordering Provider: SILVIA REDDY Report Released Date/Time: Aug 22, 2024 11:23 AM Reporting Lab: [address] [address] Performing Lab: [address] [address] OCCULT BLOOD (FIT) #1 OF 1 Negative Negative Aug 22, 2024 07:30 PM [facility] OCCULT BLOOD FIT X1 SCREEN Specimen Type: FECES No comment entered. Ordering Provider: SILVIA REDDY Report Released Date/Time: Aug 22, 2024 11:23 AM Reporting Lab: [address] [address] Performing Lab: [address] [address] OCCULT BLOOD (FIT) #1 OF 1 Negative Negative Aug 22, 2024 06:15 PM [facility] OCCULT BLOOD FIT X1 SCREEN Specimen Type: FECES No comment entered. Ordering Provider: SILVIA REDDY Report Released Date/Time: Aug 22, 2024 11:23 AM Reporting Lab: [address] [address] Performing Lab: [facility] [address] [facility] [address] OCCULT BLOOD (FIT) #1 OF 1 Negative Negative Aug 22, 2024 04:24 PM [facility] GLUCOSE,BLOOD-poct (STL) Specimen Type: BLOOD Comment: Test Performed by: [id number] Meter #: [id number] Ordering Provider: SILVIA REDDY Report Released Date/Time: Aug 22, 2024 04:36 PM Reporting Lab: [facility] [address] Performing Lab: [facility] #1 [facility] [address] GLUCOSE,BLOOD- poct (STL) 176 mg/dL H -Aug 22, 2024 04:23 PM [facility] GLUCOSE,BLOOD-poct (STL) Specimen Type: BLOOD Comment: Test Performed by: [id number] Meter #: [id number] Ordering Provider: SILVIA REDDY Report Released Date/Time: Aug 22, 2024 04:36 PM Reporting Lab: [facility] [address] Performing Lab: [facility] [address] GLUCOSE,BLOOD- poct (STL) 221 mg/dL H 72-Aug 22, 2024 11:15 AM [facility] GLUCOSE,BLOOD-poct (STL) Specimen Type: BLOOD Comment: Test Performed by: [id number] Meter #: [id number] Ordering Provider: SILVIA REDDY Report Released Date/Time: Aug 22, 2024 11:27 AM Reporting Lab: [facility] [address] Performing Lab: [facility] #1 [facility] [address] GLUCOSE,BLOOD- poct (STL) 140 mg/dL H 72-Aug 22, 2024 08:03 AM [facility] FERRITIN Specimen Type: SERUM No comment entered. Ordering Provider: JUDIT PERKINS Report Released Date/Time: Aug 18, 2024 11:01 AM Reporting Lab: [facility] [address] [facility] [address] Performing Lab: [facility] [address] [facility] [address] FERRITIN 79.50 ng/mL 22-275 Aug 22, 2024 08:03 AM [facility] B12 Specimen Type: SERUM No comment entered. Ordering Provider: JUDIT PERKINS Report Released Date/Time: Aug 18, 2024 11:01 AM Reporting Lab: [facility] #1 [facility] [address] Performing Lab: [facility] #1 [facility] [address] B12 631 pg/mL 213-816 Aug 22, 2024 08:03 AM [facility] IRON/TIBC PROFILE Specimen Type: SERUM No comment entered. Ordering Provider: JUDIT PERKINS Report Released Date/Time: Aug 18, 2024 11:01 AM Reporting Lab: [place] [address] [facility] [address] Performing Lab: [address] [address] TIBC 283 ug/dL 250-450 TRANSFERRIN 226 mg/dL 163-344 IRON SATURATION 7 L 20-50 IRON 19 ug/dL L 65-175 Aug 22, 2024 08:03 AM [facility] COMPREHENSIVE METABOLIC PANEL Specimen Type: PLASMA Comment: No hemolysis noted. Ordering Provider: SILVIA REDDY Report Released Date/Time: Aug 17, 2024 01:18 PM Reporting Lab: [facility] [address] [facility] [address] Performing Lab: [address] [address] CREATININE 0.80 mg/dL 0.7-1.3 UREA NITROGEN 9.7 [...] Reporting Lab: [facility] [address] Performing Lab: [facility] [address] WBC 3.5 10*3/uL L 3.6-11.2 RBC 3.23 [...] NRBC% 0 Aug 22, 2024 05:03 AM [facility] GLUCOSE,BLOOD-poct (STL) Specimen Type: BLOOD Comment: Test Performed by: [id number] Meter #: [id number] Ordering Provider: SILVIA REDDY Report Released Date/Time: Aug 22, 2024 06:17 AM Reporting Lab: [facility] #1 [facility] [address] Performing Lab: [facility] #1 [facility] [address] GLUCOSE,BLOOD- poct (STL) 170 mg/dL H 72-Aug 21, 2024 04:32 PM [facility] GLUCOSE,BLOOD-poct (STL) Specimen Type: BLOOD Comment: Test Performed by: [id number] Meter #: [id number] Ordering Provider: SILVIA REDDY Report Released Date/Time: Aug 21, 2024 04:49 PM Reporting Lab: [facility] [address] Performing Lab: [facility] #1 [facility] [address] GLUCOSE,BLOOD- poct (STL) 169 mg/dL H -Aug 21, 2024 11:53 AM [facility] GLUCOSE,BLOOD-poct (STL) Specimen Type: BLOOD Comment: Test Performed by: [id number] Meter #: [id number] Ordering Provider: SILVIA REDDY Report Released Date/Time: Aug 21, 2024 12:11 PM Reporting Lab: [facility] #1 [facility] [address] Performing Lab: [facility] #1 [facility] [address] GLUCOSE,BLOOD- poct (STL) 149 mg/dL H 72-Aug 21, 2024 05:10 AM [facility] GLUCOSE,BLOOD-poct (STL) Specimen Type: BLOOD Comment: Test Performed by: [id number] Meter #: [id number] Ordering Provider: SILVIA REDDY Report Released Date/Time: Aug 21, 2024 05:27 AM Reporting Lab: [facility]1 [place] [address] Performing Lab: [facility] #1 [place] [address] GLUCOSE,BLOOD- poct (STL) 118 mg/dL H 72-99 Aug 20, 2024 04:38 PM [facility] GLUCOSE,BLOOD-poct (STL) Specimen Type: BLOOD Comment: Test Performed by: [id number] Meter #: [id number] Ordering Provider: SILVIA REDDY Report Released Date/Time: Aug 21, 2024 01:55 AM Reporting Lab: [facility] #[address] [place] [address] Performing Lab: [facility] #[address] [place] [address] GLUCOSE,BLOOD- poct (STL) 169 mg/dL H 72-Aug 20, 2024 04:36 PM [facility] GLUCOSE,BLOOD-poct (STL) Specimen Type: BLOOD Comment: Test Performed by: [id number] Meter #: [id number] Ordering Provider: SILVIA REDDY Report Released Date/Time: Aug 21, 2024 01:55 AM Reporting Lab: [facility] #1 [place] [address] Performing Lab: [facility] #1 [place] [address] GLUCOSE,BLOOD- poct (STL) 395 mg/dL H 72-99 Aug 20, 2024 11:45 AM [facility] GLUCOSE,BLOOD-poct (STL) Specimen Type: BLOOD Comment: Test Performed by: [id number] Meter #: [id number] Ordering Provider: SILVIA REDDY Report Released Date/Time: Aug 20, 2024 11:56 AM Reporting Lab: [facility] #1 [place] [phone] Performing Lab: [facility] #1 [facility] [address] GLUCOSE,BLOOD- poct (STL) 169 mg/dL H 72-Aug 20, 2024 05:06 AM [facility] GLUCOSE,BLOOD-poct (STL) Specimen Type: BLOOD Comment: Test Performed by: [id number] Meter #: [id number] Ordering Provider: SILVIA REDDY Report Released Date/Time: Aug 20, 2024 06:05 AM Reporting Lab: [facility] [address] Performing Lab: [facility] #1 [facility] [address] GLUCOSE,BLOOD- poct (STL) 115 mg/dL H -Aug 19, 2024 04:23 PM [facility] GLUCOSE,BLOOD-poct (STL) Specimen Type: BLOOD Comment: Test Performed by: [id number] Meter #: [id number] Ordering Provider: SILVIA REDDY Report Released Date/Time: Aug 19, 2024 05:54 PM Reporting Lab: [facility] #1 [facility] [address] Performing Lab: [facility] #1 [facility] [address] GLUCOSE,BLOOD- poct (STL) 137 mg/dL H 72-Aug 19, 2024 11:28 AM [facility] GLUCOSE,BLOOD-poct (STL) Specimen Type: BLOOD Comment: Test Performed by: [id number] Meter #: [id number] Ordering Provider: SILVIA REDDY Report Released Date/Time: Aug 19, 2024 11:51 AM Reporting Lab: [facility] [address] Performing Lab: [facility] #1 [facility] [address] GLUCOSE,BLOOD- poct (STL) 190 mg/dL H 72-99 Aug 19, 2024 05:21 AM [facility] GLUCOSE,BLOOD-poct (STL) Specimen Type: BLOOD Comment: Test Performed by: [id number] Meter #: [id number] Ordering Provider: SILVIA REDDY Report Released Date/Time: Aug 19, 2024 05:56 AM Reporting Lab: [facility] #1 [facility] [address] Performing Lab: [facility] #1 [facility] [address] GLUCOSE,BLOOD- poct (STL) 130 mg/dL H Aug 18, 2024 04:49 PM [facility] GLUCOSE,BLOOD-poct (STL) Specimen Type: BLOOD Comment: Test Performed by: [id number] Meter #: [id number] Ordering Provider: SILVIA REDDY Report Released Date/Time: Aug 18, 2024 05:01 PM Reporting Lab: [facility] [address] Performing Lab: [facility] #1 [facility] [address] GLUCOSE,BLOOD- poct (STL) 129 mg/dL H Aug 18, 2024 11:23 AM [facility] GLUCOSE,BLOOD-poct (STL) Specimen Type: BLOOD Comment: Test Performed by: [id number] Meter #: [id number] Ordering Provider: SILVIA REDDY Report Released Date/Time: Aug 18, 2024 11:41 AM Reporting Lab: [facility] #1 [facility] [address] Performing Lab: [facility] #1 [facility] [address] GLUCOSE,BLOOD- poct (STL) 180 mg/dL H Aug 18, 2024 05:08 AM [facility] GLUCOSE,BLOOD-poct (STL) Specimen Type: BLOOD Comment: Test Performed by: [id number] Meter #: [id number] Ordering Provider: SILVIA REDDY Report Released Date/Time: Aug 18, 2024 05:31 AM Reporting Lab: [facility] [place] [address] Performing Lab: [facility] #1 [place] [phone] GLUCOSE,BLOOD- poct (STL) 127 mg/dL H -Aug 17, 2024 07:32 PM [facility] GLUCOSE,BLOOD-poct (STL) Specimen Type: BLOOD Comment: Test Performed by: [id number] Meter #: [id number] Ordering Provider: SILVIA REDDY Report Released Date/Time: Aug 17, 2024 07:59 PM Reporting Lab: [facility] #1 [place] [address] Performing Lab: [facility] #1 [place] [address] GLUCOSE,BLOOD- poct (STL) 154 mg/dL H -Aug 17, 2024 04:24 PM [facility] GLUCOSE,BLOOD-poct (STL) Specimen Type: BLOOD Comment: Test Performed by: [id number] Meter #: [id number] Ordering Provider: SILVIA REDDY Report Released Date/Time: Aug 17, 2024 04:35 PM Reporting Lab: [facility] #1 [place] [address] Performing Lab: [facility]1 [place] [address] GLUCOSE,BLOOD- poct (STL) 178 mg/dL H -Aug 17, 2024 05:09 AM [facility] GLUCOSE,BLOOD-poct (STL) Specimen Type: BLOOD Comment: Test Performed by: [id number] Meter #: [id number] Ordering Provider: SILVIA REDDY Report Released Date/Time: Aug 17, 2024 05:54 AM Reporting Lab: [facility]1 [place] [phone] Performing Lab: [facility] #1 [facility] [address] GLUCOSE,BLOOD- poct (STL) 124 mg/dL H 72-Aug 16, 2024 07:40 PM [facility] GLUCOSE,BLOOD-poct (STL) Specimen Type: BLOOD Comment: Test Performed by: [id number] Meter #: [id number] Ordering Provider: SILVIA REDDY Report Released Date/Time: Aug 16, 2024 08:28 PM Reporting Lab: [facility] [address] Performing Lab: [facility] #1 [facility] [address] GLUCOSE,BLOOD- poct (STL) 144 mg/dL H -Aug 16, 2024 04:19 PM [facility] GLUCOSE,BLOOD-poct (STL) Specimen Type: BLOOD Comment: Test Performed by: [id number] Meter #: [id number] Ordering Provider: SILVIA REDDY Report Released Date/Time: Aug 16, 2024 04:45 PM Reporting Lab: [facility] #1 [facility] [address] Performing Lab: [facility] #1 [facility] [address] GLUCOSE,BLOOD- poct (STL) 138 mg/dL H -Aug 16, 2024 11:52 AM [facility] GLUCOSE,BLOOD-poct (STL) Specimen Type: BLOOD Comment: Test Performed by: [id number] Meter #: [id number] Ordering Provider: SILVIA REDDY Report Released Date/Time: Aug 16, 2024 12:04 PM Reporting Lab: [facility] [address] Performing Lab: [facility] #1 [facility] [address] GLUCOSE,BLOOD- poct (STL) 135 mg/dL H 72- Aug 16, 2024 05:24 AM [facility] GLUCOSE,BLOOD-poct (STL) Specimen Type: BLOOD Comment: Test Performed by: [id number] Meter #: [id number] Ordering Provider: SILVIA REDDY Report Released Date/Time: Aug 16, 2024 05:38 AM Reporting Lab: [facility] #1 [facility] [address] Performing Lab: [facility] #1 [facility] [address] GLUCOSE,BLOOD- poct (STL) 151 mg/dL H Aug 15, 2024 07:31 PM [facility] GLUCOSE,BLOOD-poct (STL) Specimen Type: BLOOD Comment: Test Performed by: [id number] Meter #: [id number] Ordering Provider: SILVIA REDDY Report Released Date/Time: Aug 15, 2024 08:07 PM Reporting Lab: [facility] [address] Performing Lab: [facility] #1 [facility] [address] GLUCOSE,BLOOD- poct (STL) 173 mg/dL H Aug 15, 2024 04:18 PM [facility] GLUCOSE,BLOOD-poct (STL) Specimen Type: BLOOD Comment: Test Performed by: [id number] Meter #: [id number] Ordering Provider: SILVIA REDDY Report Released Date/Time: Aug 15, 2024 04:59 PM Reporting Lab: [facility] #1 [facility] [address] Performing Lab: [facility] #1 [facility] [address] GLUCOSE,BLOOD- poct (STL) 136 mg/dL H Aug 15, 2024 04:16 PM [facility] GLUCOSE,BLOOD-poct (STL) Specimen Type: BLOOD Comment: Test Performed by: [id number] Meter #: [id number] Ordering Provider: SILVIA REDDY Report Released Date/Time: Aug 15, 2024 04:59 PM Reporting Lab: [facility] #1 [place] [address] Performing Lab: [facility] #1 [facility] [address] GLUCOSE,BLOOD- poct (STL) 194 mg/dL H -Aug 15, 2024 11:39 AM [facility] GLUCOSE,BLOOD-poct (STL) Specimen Type: BLOOD Comment: Test Performed by: [id number] Meter #: [id number] Ordering Provider: SILVIA REDDY Report Released Date/Time: Aug 15, 2024 12:00 PM Reporting Lab: [facility] #1 [place] [address] Performing Lab: [facility] #[address] [place] [address] GLUCOSE,BLOOD- poct (STL) 127 mg/dL H -Aug 15, 2024 05:07 AM [facility] GLUCOSE,BLOOD-poct (STL) Specimen Type: BLOOD Comment: Test Performed by: [id number] Meter #: [id number] Ordering Provider: SILVIA REDDY Report Released Date/Time: Aug 15, 2024 06:14 AM Reporting Lab: [facility] #1 [place] [address] Performing Lab: [facility] #[facility] [place] [address] GLUCOSE,BLOOD- poct (STL) 151 mg/dL H -Aug 14, 2024 04:22 PM [facility] GLUCOSE,BLOOD-poct (STL) Specimen Type: BLOOD Comment: Test Performed by: [id number] Meter #: [id number] Ordering Provider: SILVIA REDDY Report Released Date/Time: Aug 14, 2024 04:52 PM Reporting Lab: [facility] #1 [place] [phone] Performing Lab: [facility] [address] GLUCOSE,BLOOD- poct (STL) 129 mg/dL H 72-99 Aug 14, 2024 11:21 AM [facility] GLUCOSE,BLOOD-poct (STL) Specimen Type: BLOOD Comment: Test Performed by: [id number] Meter #: [id number] Ordering Provider: SILVIA REDDY Report Released Date/Time: Aug 14, 2024 11:37 AM Reporting Lab: [facility] [address] Performing Lab: [facility] #1 [facility] [address] GLUCOSE,BLOOD- poct (STL) 135 mg/dL H 72-Aug 14, 2024 06:59 AM [facility] QUANTIFERON-TB,4 TUBE Specimen Type: [...] For additional information, please refer to http://education. Sookbox/faq/NNR834 (This link is being provided for information/ educational purposes only.) Test Performed by [facility], [facility], [address] [place] [address] Tommie Garcia M.D., Ph.D., Director of Laboratories , [facility] [id number] Ordering Provider: SILVIA REDDY Report Released Date/Time: Aug 11, 2024 03:58 PM Reporting Lab: [facility] [address] [facility] [address] Performing Lab: [facility] [id number] [place] [address] .NIL - QUANTIFERON 0.04 [IU]/mL .MITOGEN-NIL 0.39 [IU]/mL .QUANTIFERON INDETERMINATE NEGATIVE .TB1-NIL <0.00 [IU]/mL .TB2-NIL <0.00 [IU]/mL Aug 14, 2024 06:59 AM [facility] MAGNESIUM Specimen Type: PLASMA Comment: No hemolysis noted. Ordering Provider: SILVIA REDDY Report Released Date/Time: Aug 11, 2024 03:58 PM Reporting Lab: [facility] [address] [facility] [id number] Performing Lab: [facility] [facility] [address] MAGNESIUM 1.9 mg/dL 1.6-2.6 Aug 14, 2024 06:59 AM [facility] B12 Specimen Type: SERUM No comment entered. Ordering Provider: SILVIA REDDY Report Released Date/Time: Aug 11, 2024 03:58 PM Reporting Lab: [facility] [facility] [address] Performing Lab: [facility] [facility] [address] B12 757 pg/mL 213-816 Aug 14, 2024 06:59 AM [facility] FOLATE (STL-MA) Specimen Type: SERUM No comment entered. Ordering Provider: SILVIA REDDY Report Released Date/Time: Aug 11, 2024 03:58 PM Reporting Lab: [facility] [facility] [address] Performing Lab: [facility] [facility] [address] FOLATE (STL-MA) 6.8 ng/mL L 7-20 Aug 14, 2024 06:59 AM [facility] VITAMIN D, 25-HYDROXY Specimen Type: SERUM No comment entered. Ordering Provider: SILVIA REDDY Report Released Date/Time: Aug 11, 2024 03:58 PM Reporting Lab: [facility] [facility] [address] Performing Lab: [facility] [facility] [address] VITAMIN D, 25-HYDROXY 8.9 ng/mL L 30-96 Aug 14, 2024 06:59 AM [facility] COMPREHENSIVE METABOLIC PANEL Specimen Type: PLASMA Comment: No hemolysis noted. Ordering Provider: SILVIA REDDY Report Released Date/Time: Aug 11, 2024 03:58 PM Reporting Lab: [facility] [facility] [address] Performing Lab: [facility] [facility] [address] CREATININE 0.75 mg/dL 0.70-1.30 UREA NITROGEN 13.6 [...] 2024 06:59 AM [facility] CBC Specimen Type: BLOOD No comment entered. Ordering Provider: SILVIA REDDY Report Released Date/Time: Aug 11, 2024 03:58 PM Reporting Lab: [facility] [address] Performing Lab: [facility] [address] WBC 4.1 10*3/uL 3.6-11.2 RBC 3.20 10*6/uL [...] 2024 05:08 AM [facility] GLUCOSE,BLOOD-poct (STL) Specimen Type: BLOOD Comment: Test Performed by: [id number] Meter #: [id number] Ordering Provider: SILVIA REDDY Report Released Date/Time: Aug 14, 2024 05:52 AM Reporting Lab: [facility] [address] Performing Lab: [facility] [address] GLUCOSE,BLOOD- poct (STL) 135 mg/dL H 72-99 Aug 13, 2024 04:27 PM [facility] GLUCOSE,BLOOD-poct (STL) Specimen Type: BLOOD Comment: Test Performed by: [id number] Meter #: [id number] Ordering Provider: SILVIA REDDY Report Released Date/Time: Aug 13, 2024 04:41 PM Reporting Lab: [facility] [address] Performing Lab: [facility] [address] GLUCOSE,BLOOD- poct (STL) 181 mg/dL H -Aug 13, 2024 11:33 AM [facility] GLUCOSE,BLOOD-poct (STL) Specimen Type: BLOOD Comment: Test Performed by: [id number] Meter #: [id number] Ordering Provider: SILVIA REDDY Report Released Date/Time: Aug 13, 2024 03:55 PM Reporting Lab: [facility] [address] Performing Lab: [facility] [place] [address] GLUCOSE,BLOOD- poct (STL) 140 mg/dL H Aug 13, 2024 05:54 AM [facility] GLUCOSE,BLOOD-poct (STL) Specimen Type: BLOOD Comment: Test Performed by: [id number] Meter #: [id number] Ordering Provider: SILVAI REDDY Report Released Date/Time: Aug 13, 2024 06:20 AM Reporting Lab: [facility] [address] Performing Lab: [facility] [address] GLUCOSE,BLOOD- poct (STL) 112 mg/dL H Aug 12, 2024 04:35 PM [facility] GLUCOSE,BLOOD-poct (STL) Specimen Type: BLOOD Comment: Test Performed by: [id number] Meter #: [id number] Ordering Provider: SILVIA REDDY Report Released Date/Time: Aug 12, 2024 04:47 PM Reporting Lab: [facility] [address] Performing Lab: [facility] [address] GLUCOSE,BLOOD- poct (STL) 128 mg/dL H 72-99 Aug 12, 2024 11:26 AM [facility] GLUCOSE,BLOOD-poct (STL) Specimen Type: BLOOD Comment: Test Performed by: [id number] Meter #: [id number] Ordering Provider: SILVIA REDDY Report Released Date/Time: Aug 12, 2024 11:45 AM Reporting Lab: [facility] [address] Performing Lab: [facility] [address] GLUCOSE,BLOOD- poct (STL) 188 mg/dL H -Aug 12, 2024 06:13 AM [facility] GLUCOSE,BLOOD-poct (STL) Specimen Type: BLOOD Comment: Test Performed by: [id number] Meter #: [id number] Ordering Provider: SILVIA REDDY Report Released Date/Time: Aug 12, 2024 06:25 AM Reporting Lab: [facility] [address] Performing Lab: [facility] [address] GLUCOSE,BLOOD- poct (STL) 116 mg/dL H 72-99 Aug 11, 2024 04:10 PM [facility] GLUCOSE,BLOOD-poct (STL) Specimen Type: BLOOD Comment: Test Performed by: [id number] Meter #: [id number] Ordering Provider: SILVIA REDDY Report Released Date/Time: Aug 11, 2024 04:27 PM Reporting Lab: [facility] [place] [address] Performing Lab: [facility] [address] GLUCOSE,BLOOD- poct (STL) 184 mg/dL H 72-99 Aug 11, 2024 01:44 PM [facility] MRSA SURVL NARES DNA [...] Aug 11, 2024 02:03 PM Reporting Lab: [address] [address] Performing Lab: [address] [address] MRSA SURVL NARES DNA Negative Negative Vital Signs: All taken on the encounter date This section contains inpatient and outpatient Vital Signs collected on the date of the Encounter. Date/Time Temperature Pulse Blood Pressure Respiratory Rate SP02 Pain Height Weight Body Mass Index Source Aug 19, 2024 07:31 PM 98.1 89 174/79 18 97 [facility] Aug 19, 2024 06:27 PM 0 [facility] Aug 19, 2024 10:00 AM 97.8 72 130/74 18 96 [facility] Aug 19, 2024 09:16 AM 0 [facility] Aug 19, 2024 05:26 AM 213.8 31 [facility] Advance Directives: [...] 19, 2017 ADVANCE DIRECTIVE DISCUSSION ERICK BARDALES [facility]
--- OUTSIDE RECORDS SUMMARY | 2024-11-17 04:18 | XMS_ITS ---
[place] DAILY HOSPITALIZATION DATA [facility] Encounter Summary Created on: November 16, 2024 CHET WALKER : 1950 Sex: Male Author Name [facility] Organization [facility] [place] Address [address] [place] [address] Care Team Providers Care Mobile Lab Technician Name Role Phone MANUEL BAIRD [...] PART A Apr 08, 2017 PART A [id number] [phone] ASHLEY WALKER PATIENT Selected Encounter This section includes the information on record at [place] for the Encounter. Date/Time Encounter Type Encounter Description Reason Pro vider Source Aug 19, 2024 09:24 AM Inpatient Visit DAILY HOSPITALIZATION DATA MARTHA JONES Nav Encounter Template Text not used by [place] Plan of Treatment: Future Appointments (+ 6 [...] 24, 2024 10:00 AM AMBULATORY - MEDICINE [facility] Aug 24, 2024 10:30 AM AMBULATORY - MEDICINE [facility] Aug 30, 2024 09:30 AM AMBULATORY - MEDICINE [facility] Aug 31, 2024 01:00 PM AMBULATORY - SURGERY [facility] Sep 21, 2024 01:30 PM AMBULATORY - MEDICINE [facility] Sep 22, 2024 11:00 AM AMBULATORY - MEDICINE [facility] Sep 29, 2024 12:30 PM AMBULATORY - MEDICINE [facility] Oct 02, 2024 09:30 AM AMBULATORY - MEDICINE [facility] Nov 20, 2024 10:30 AM AMBULATORY - SURGERY . L [facility] Nov 21, 2024 10:00 AM AMBULATORY - NONE [facility] Dec 11, 2024 10:30 AM AMBULATORY - MEDICINE [facility] [...] theEncounter. The data comes from all [facility]. Test Date/Time Test Type Test Details Facility Name Aug 02, 2024 12:00 AM Laboratory - Chemistry Order CBC BLOOD STAT SP [facility] Aug 02, 2024 12:00 AM Laboratory - Chemistry Order COMPREHENSIVE METABOLIC PANEL GREEN LI/HEP BLD/PLAS PLASMA SP [facility] Aug 17, 2024 03:47 PM Consult Order [facility] Cons Bedside [facility] Lab Results: +/- 30 days [...] 2024 08:21 AM [facility] CBC Specimen Type: BLOOD No comment entered. Ordering Provider: SILVIA REDDY Report Released Date/Time: Aug 22, 2024 11:19 AM Reporting Lab: [facility] [address] Performing Lab: [facility]1 [facility] [address] WBC 4.0 10*3/uL 3.6-11.2 RBC 3.65 10*6/uL [...] 10*3/uL 0.00-0.20 Aug 23, 2024 08:21 AM [facility] MAGNESIUM Specimen Type: PLASMA No comment entered. Ordering Provider: SILVIA REDDY Report Released Date/Time: Aug 22, 2024 11:26 AM Reporting Lab: [facility] [address] Performing Lab: [facility] [address] MAGNESIUM 1.8 mg/dL 1.6-2.6 Aug 23, 2024 05:12 AM [facility] GLUCOSE,BLOOD-poct (STL) Specimen Type: BLOOD Comment: Test Performed by: [id number] Meter #: [id number] Ordering Provider: SILVIA REDDY Report Released Date/Time: Aug 23, 2024 05:23 AM Reporting Lab: [facility] [address] Performing Lab: [facility] [address] GLUCOSE,BLOOD- poct (STL) 99 mg/dL 72-99 Aug 23, 2024 02:45 AM [facility] OCCULT BLOOD FIT X1 SCREEN Specimen Type: FECES No comment entered. Ordering Provider: SILVIA REDDY Report Released Date/Time: Aug 22, 2024 11:23 AM Reporting Lab: [facility] [address] [place] [phone] Performing Lab: [place] [address] [facility] [address] OCCULT BLOOD (FIT) #1 OF 1 Negative Negative Aug 22, 2024 07:30 PM [facility] OCCULT BLOOD FIT X1 SCREEN Specimen Type: FECES No comment entered. Ordering Provider: SILVIA REDDY Report Released Date/Time: Aug 22, 2024 11:23 AM Reporting Lab: [facility] [address] [place] [phone] Performing Lab: [place] [address] [facility] [address] OCCULT BLOOD (FIT) #1 OF 1 Negative Negative Aug 22, 2024 06:15 PM [facility] OCCULT BLOOD FIT X1 SCREEN Specimen Type: FECES No comment entered. Ordering Provider: SILVIA REDDY Report Released Date/Time: Aug 22, 2024 11:23 AM Reporting Lab: [address] [address] Performing Lab: [facility] [address] [facility] [address] OCCULT BLOOD (FIT) #1 OF 1 Negative Negative Aug 22, 2024 04:24 PM [facility] GLUCOSE,BLOOD-poct (STL) Specimen Type: BLOOD Comment: Test Performed by: [id number] Meter #: [id number] Ordering Provider: SILVIA REDDY Report Released Date/Time: Aug 22, 2024 04:36 PM Reporting Lab: [facility] [address] Performing Lab: [facility] #1 [facility] [address] GLUCOSE,BLOOD- poct (STL) 176 mg/dL H -Aug 22, 2024 04:23 PM [facility] GLUCOSE,BLOOD-poct (STL) Specimen Type: BLOOD Comment: Test Performed by: [id number] Meter #: [id number] Ordering Provider: SILVIA REDDY Report Released Date/Time: Aug 22, 2024 04:36 PM Reporting Lab: [facility] [address] Performing Lab: [facility]1 [facility] [address] GLUCOSE,BLOOD- poct (STL) 221 mg/dL H 72-Aug 22, 2024 11:15 AM [facility] GLUCOSE,BLOOD-poct (STL) Specimen Type: BLOOD Comment: Test Performed by: [id number] Meter #: [id number] Ordering Provider: SILVIA REDDY Report Released Date/Time: Aug 22, 2024 11:27 AM Reporting Lab: [facility] [address] Performing Lab: [facility]1 [facility] [address] GLUCOSE,BLOOD- poct (STL) 140 mg/dL H 72-Aug 22, 2024 08:[address] [facility] COMPREHENSIVE METABOLIC PANEL Specimen Type: PLASMA Comment: No hemolysis noted. Ordering Provider: SILVIA REDDY Report Released Date/Time: Aug 17, 2024 01:18 PM Reporting Lab: [facility] [address] [facility] [address] Performing Lab: [facility] [address] [facility] [address] CREATININE 0.80 mg/dL 0.7-1.3 UREA NITROGEN 9.7 [...] 22, 2024 08:03 AM [facility] CBC Specimen Type: BLOOD No comment entered. Ordering Provider: SILVIA REDDY Report Released Date/Time: Aug 17, 2024 01:18 PM Reporting Lab: [facility] [address] Performing Lab: [facility]1 [facility] [address] WBC 3.5 10*3/uL L 3.6-11.2 RBC 3.23 [...] NRBC% 0 Aug 22, 2024 08:03 AM [facility] FERRITIN Specimen Type: SERUM No comment entered. Ordering Provider: JUDIT PERKINS Report Released Date/Time: Aug 18, 2024 11:01 AM Reporting Lab: [address] [address] Performing Lab: [address] [address] FERRITIN 79.50 ng/mL 22-275 Aug 22, 2024 08:03 AM [facility] IRON/TIBC PROFILE Specimen Type: SERUM No comment entered. Ordering Provider: JUDIT PERKINS Report Released Date/Time: Aug 18, 2024 11:01 AM Reporting Lab: [address] [address] Performing Lab: [address] [address] TIBC 283 ug/dL 250-450 TRANSFERRIN 226 mg/dL 163-344 IRON SATURATION 7 L 20-50 IRON 19 ug/dL L 65-175 Aug 22, 2024 08:03 AM [facility] B12 Specimen Type: SERUM No comment entered. Ordering Provider: JUDIT PERKINS Report Released Date/Time: Aug 18, 2024 11:01 AM Reporting Lab: [facility] [address] Performing Lab: [facility]1 [facility] [address] B12 631 pg/mL 213-816 Aug 22, 2024 05:03 AM [facility] GLUCOSE,BLOOD-poct (STL) Specimen Type: BLOOD Comment: Test Performed by: [id number] Meter #: [id number] Ordering Provider: SILVIA REDDY Report Released Date/Time: Aug 22, 2024 06:17 AM Reporting Lab: [facility] #1 [facility] [address] Performing Lab: [facility] #1 [facility] [address] GLUCOSE,BLOOD- poct (STL) 170 mg/dL H 72-Aug 21, 2024 04:32 PM [facility] GLUCOSE,BLOOD-poct (STL) Specimen Type: BLOOD Comment: Test Performed by: [id number] Meter #: [id number] Ordering Provider: SILVIA REDDY Report Released Date/Time: Aug 21, 2024 04:49 PM Reporting Lab: [facility]1 [facility] [address] Performing Lab: [facility] #1 [facility] [address] GLUCOSE,BLOOD- poct (STL) 169 mg/dL H 72-99 Aug 21, 2024 11:53 AM [facility] GLUCOSE,BLOOD-poct (STL) Specimen Type: BLOOD Comment: Test Performed by: [id number] Meter #: [id number] Ordering Provider: SILVIA REDDY Report Released Date/Time: Aug 21, 2024 12:11 PM Reporting Lab: [facility] #1 [facility] [address] Performing Lab: [facility] #1 [facility] [address] GLUCOSE,BLOOD- poct (STL) 149 mg/dL H 72-99 Aug 21, 2024 05:10 AM [facility] GLUCOSE,BLOOD-poct (STL) Specimen Type: BLOOD Comment: Test Performed by: [id number] Meter #: [id number] Ordering Provider: SILVIA REDDY Report Released Date/Time: Aug 21, 2024 05:27 AM Reporting Lab: [facility] #1 [place] [address] Performing Lab: [facility] #1 [place] [phone] GLUCOSE,BLOOD- poct (STL) 118 mg/dL H 72-99 Aug 20, 2024 04:38 PM [facility] GLUCOSE,BLOOD-poct (STL) Specimen Type: BLOOD Comment: Test Performed by: [id number] Meter #: [id number] Ordering Provider: SILVIA REDDY Report Released Date/Time: Aug 21, 2024 01:55 AM Reporting Lab: [facility] #1 [place] [address] Performing Lab: [facility] #1 [place] [address] GLUCOSE,BLOOD- poct (STL) 169 mg/dL H 72-99 Aug 20, 2024 04:36 PM [facility] GLUCOSE,BLOOD-poct (STL) Specimen Type: BLOOD Comment: Test Performed by: [id number] Meter #: [id number] Ordering Provider: SILVIA REDDY Report Released Date/Time: Aug 21, 2024 01:55 AM Reporting Lab: [facility] [place] [address] Performing Lab: [facility]1 [place] [address] GLUCOSE,BLOOD- poct (STL) 395 mg/dL H 72-99 Aug 20, 2024 11:45 AM [facility] GLUCOSE,BLOOD-poct (STL) Specimen Type: BLOOD Comment: Test Performed by: [id number] Meter #: [id number] Ordering Provider: SILVIA REDDY Report Released Date/Time: Aug 20, 2024 11:56 AM Reporting Lab: [facility] [address] Performing Lab: [facility] #1 [facility] [address] GLUCOSE,BLOOD- poct (STL) 169 mg/dL H 72-Aug 20, 2024 05:06 AM [facility] GLUCOSE,BLOOD-poct (STL) Specimen Type: BLOOD Comment: Test Performed by: [id number] Meter #: [id number] Ordering Provider: SILVIA REDDY Report Released Date/Time: Aug 20, 2024 06:05 AM Reporting Lab: [facility]1 [facility] [address] Performing Lab: [facility] #1 [facility] [address] GLUCOSE,BLOOD- poct (STL) 115 mg/dL H 72-Aug 19, 2024 04:23 PM [facility] GLUCOSE,BLOOD-poct (STL) Specimen Type: BLOOD Comment: Test Performed by: [id number] Meter #: [id number] Ordering Provider: SILVIA REDDY Report Released Date/Time: Aug 19, 2024 05:54 PM Reporting Lab: [facility]1 [facility] [address] Performing Lab: [facility] #1 [facility] [address] GLUCOSE,BLOOD- poct (STL) 137 mg/dL H 72-99 Aug 19, 2024 11:28 AM [facility] GLUCOSE,BLOOD-poct (STL) Specimen Type: BLOOD Comment: Test Performed by: [id number] Meter #: [id number] Ordering Provider: SILVIA REDDY Report Released Date/Time: Aug 19, 2024 11:51 AM Reporting Lab: [facility]1 [facility] [address] Performing Lab: [facility] #1 [facility] [address] GLUCOSE,BLOOD- poct (STL) 190 mg/dL H 72-99 Aug 19, 2024 05:21 AM [facility] GLUCOSE,BLOOD-poct (STL) Specimen Type: BLOOD Comment: Test Performed by: [id number] Meter #: [id number] Ordering Provider: SILVIA REDDY Report Released Date/Time: Aug 19, 2024 05:56 AM Reporting Lab: [facility]1 [facility] [address] Performing Lab: [facility] #1 [facility] [address] GLUCOSE,BLOOD- poct (STL) 130 mg/dL H Aug 18, 2024 04:49 PM [facility] GLUCOSE,BLOOD-poct (STL) Specimen Type: BLOOD Comment: Test Performed by: [id number] Meter #: [id number] Ordering Provider: SILVIA REDDY Report Released Date/Time: Aug 18, 2024 05:01 PM Reporting Lab: [facility] [address] Performing Lab: [facility] #1 [facility] [address] GLUCOSE,BLOOD- poct (STL) 129 mg/dL H Aug 18, 2024 11:23 AM [facility] GLUCOSE,BLOOD-poct (STL) Specimen Type: BLOOD Comment: Test Performed by: [id number] Meter #: [id number] Ordering Provider: SILVIA REDDY Report Released Date/Time: Aug 18, 2024 11:41 AM Reporting Lab: [facility]1 [facility] [address] Performing Lab: [facility] [address] GLUCOSE,BLOOD- poct (STL) 180 mg/dL H Aug 18, 2024 05:08 AM [facility] GLUCOSE,BLOOD-poct (STL) Specimen Type: BLOOD Comment: Test Performed by: [id number] Meter #: [id number] Ordering Provider: SILVIA REDDY Report Released Date/Time: Aug 18, 2024 05:31 AM Reporting Lab: [facility]1 [facility] [address] Performing Lab: [facility] #1 [facility] [address] GLUCOSE,BLOOD- poct (STL) 127 mg/dL H 72-Aug 17, 2024 07:32 PM [facility] GLUCOSE,BLOOD-poct (STL) Specimen Type: BLOOD Comment: Test Performed by: [id number] Meter #: [id number] Ordering Provider: SILVIA REDDY Report Released Date/Time: Aug 17, 2024 07:59 PM Reporting Lab: [facility]1 [facility] [address] Performing Lab: [facility] #1 [place] [address] GLUCOSE,BLOOD- poct (STL) 154 mg/dL H -Aug 17, 2024 04:24 PM [facility] GLUCOSE,BLOOD-poct (STL) Specimen Type: BLOOD Comment: Test Performed by: [id number] Meter #: [id number] Ordering Provider: SILVIA REDDY Report Released Date/Time: Aug 17, 2024 04:35 PM Reporting Lab: [facility]1 [place] [phone] Performing Lab: [facility]1 [place] [address] GLUCOSE,BLOOD- poct (STL) 178 mg/dL H 72-Aug 17, 2024 05:09 AM [facility] GLUCOSE,BLOOD-poct (STL) Specimen Type: BLOOD Comment: Test Performed by: [id number] Meter #: [id number] Ordering Provider: SILVIA REDDY Report Released Date/Time: Aug 17, 2024 05:54 AM Reporting Lab: [facility] [address] Performing Lab: [facility]1 [facility] [address] GLUCOSE,BLOOD- poct (STL) 124 mg/dL H 72-Aug 16, 2024 07:40 PM [facility] GLUCOSE,BLOOD-poct (STL) Specimen Type: BLOOD Comment: Test Performed by: [id number] Meter #: [id number] Ordering Provider: SILVIA REDDY Report Released Date/Time: Aug 16, 2024 08:28 PM Reporting Lab: [facility]1 [facility] [address] Performing Lab: [facility]1 [facility] [address] GLUCOSE,BLOOD- poct (STL) 144 mg/dL H 72-Aug 16, 2024 04:19 PM [facility] GLUCOSE,BLOOD-poct (STL) Specimen Type: BLOOD Comment: Test Performed by: [id number] Meter #: [id number] Ordering Provider: SILVIA REDDY Report Released Date/Time: Aug 16, 2024 04:45 PM Reporting Lab: [facility]1 [facility] [address] Performing Lab: [facility]1 [facility] [address] GLUCOSE,BLOOD- poct (STL) 138 mg/dL H 72-Aug 16, 2024 11:52 AM [facility] GLUCOSE,BLOOD-poct (STL) Specimen Type: BLOOD Comment: Test Performed by: [id number] Meter #: [id number] Ordering Provider: SILVIA REDDY Report Released Date/Time: Aug 16, 2024 12:04 PM Reporting Lab: [facility]1 [facility] [address] Performing Lab: [facility]1 [facility] [address] GLUCOSE,BLOOD- poct (STL) 135 mg/dL H 72-99 Aug 16, 2024 05:24 AM [facility] GLUCOSE,BLOOD-poct (STL) Specimen Type: BLOOD Comment: Test Performed by: [id number] Meter #: [id number] Ordering Provider: SILVIA REDDY Report Released Date/Time: Aug 16, 2024 05:38 AM Reporting Lab: [facility]1 [facility] [address] Performing Lab: [facility]1 [facility] [address] GLUCOSE,BLOOD- poct (STL) 151 mg/dL H Aug 15, 2024 07:31 PM [facility] GLUCOSE,BLOOD-poct (STL) Specimen Type: BLOOD Comment: Test Performed by: [id number] Meter #: [id number] Ordering Provider: SILVIA REDDY Report Released Date/Time: Aug 15, 2024 08:07 PM Reporting Lab: [facility] [address] Performing Lab: [facility]1 [facility] [address] GLUCOSE,BLOOD- poct (STL) 173 mg/dL H Aug 15, 2024 04:18 PM [facility] GLUCOSE,BLOOD-poct (STL) Specimen Type: BLOOD Comment: Test Performed by: [id number] Meter #: [id number] Ordering Provider: SILVIA REDDY Report Released Date/Time: Aug 15, 2024 04:59 PM Reporting Lab: [facility] [address] Performing Lab: [facility]1 [facility] [address] GLUCOSE,BLOOD- poct (STL) 136 mg/dL H Aug 15, 2024 04:16 PM [facility] GLUCOSE,BLOOD-poct (STL) Specimen Type: BLOOD Comment: Test Performed by: [id number] Meter #: [id number] Ordering Provider: SILVIA REDDY Report Released Date/Time: Aug 15, 2024 04:59 PM Reporting Lab: [facility] [place] [address] Performing Lab: [facility] [address] GLUCOSE,BLOOD- poct (STL) 194 mg/dL H 72-Aug 15, 2024 11:39 AM [facility] GLUCOSE,BLOOD-poct (STL) Specimen Type: BLOOD Comment: Test Performed by: [id number] Meter #: [id number] Ordering Provider: SILVIA REDDY Report Released Date/Time: Aug 15, 2024 12:00 PM Reporting Lab: [facility] [place] [address] Performing Lab: [facility] [place] [address] GLUCOSE,BLOOD- poct (STL) 127 mg/dL H 72-Aug 15, 2024 05:07 AM [facility] GLUCOSE,BLOOD-poct (STL) Specimen Type: BLOOD Comment: Test Performed by: [id number] Meter #: [id number] Ordering Provider: SILVIA REDDY Report Released Date/Time: Aug 15, 2024 06:14 AM Reporting Lab: [facility] [place] [address] Performing Lab: [facility] [place] [address] GLUCOSE,BLOOD- poct (STL) 151 mg/dL H 72-Aug 14, 2024 04:22 PM [facility] GLUCOSE,BLOOD-poct (STL) Specimen Type: BLOOD Comment: Test Performed by: [id number] Meter #: [id number] Ordering Provider: SILVIA REDDY Report Released Date/Time: Aug 14, 2024 04:52 PM Reporting Lab: [facility] [address] Performing Lab: [facility] [address] GLUCOSE,BLOOD- poct (STL) 129 mg/dL H 72-99 Aug 14, 2024 11:21 AM [facility] GLUCOSE,BLOOD-poct (STL) Specimen Type: BLOOD Comment: Test Performed by: [id number] Meter #: [id number] Ordering Provider: SILVIA REDDY Report Released Date/Time: Aug 14, 2024 11:37 AM Reporting Lab: [facility] [address] Performing Lab: [facility] [address] GLUCOSE,BLOOD- poct (STL) 135 mg/dL H 72-Aug 14, 2024 06:59 AM [facility] [...] For additional information, please refer to http://[email or web address] gDine/faq/PDT161 (This link is being provided for information/ educational purposes only.) Test Performed by Bridg Haugan, [facility], [address] [place] [address] Tommie Garcia M.D., Ph.D., Director of Laboratories , [facility] [id number] Ordering Provider: SILVIA REDDY Report Released Date/Time: Aug 11, 2024 03:58 PM Reporting Lab: [facility] [address] [facility] [address] Performing Lab: [facility] [address] [place] [address] .NIL - QUANTIFERON 0.04 [IU]/mL .MITOGEN-NIL 0.39 [IU]/mL .QUANTIFERON INDETERMINATE NEGATIVE .TB1-NIL <0.00 [IU]/mL .TB2-NIL <0.00 [IU]/mL Aug 14, 2024 06:59 AM [facility] COMPREHENSIVE METABOLIC PANEL Specimen Type: PLASMA Comment: No hemolysis noted. Ordering Provider: SILVIA REDDY Report Released Date/Time: Aug 11, 2024 03:58 PM Reporting Lab: [facility] [address] Performing Lab: [facility] [address] CREATININE 0.75 mg/dL 0.70-1.30 UREA NITROGEN 13.6 [...] 95.88 >60 Aug 14, 2024 06:59 AM [facility] CBC Specimen Type: BLOOD No comment entered. Ordering Provider: SILVIA REDDY Report Released Date/Time: Aug 11, 2024 03:58 PM Reporting Lab: [facility] [facility] [address] Performing Lab: [facility] [address] WBC 4.1 10*3/uL 3.6-11.2 RBC 3.20 10*6/uL [...] 2024 06:59 AM [facility] MAGNESIUM Specimen Type: PLASMA Comment: No hemolysis noted. Ordering Provider: SILVIA REDDY Report Released Date/Time: Aug 11, 2024 03:58 PM Reporting Lab: [facility] [address] Performing Lab: [facility] [place] [phone] MAGNESIUM 1.9 mg/dL 1.6-2.6 Aug 14, 2024 06:59 AM [facility] B12 Specimen Type: SERUM No comment entered. Ordering Provider: SILVIA REDDY Report Released Date/Time: Aug 11, 2024 03:58 PM Reporting Lab: [facility] [address] Performing Lab: [facility] [address] B12 757 pg/mL 213-816 Aug 14, 2024 06:59 AM [facility] ([facility]) Specimen Type: SERUM No comment entered. Ordering Provider: SILVIA REDDY Report Released Date/Time: Aug 11, 2024 03:58 PM Reporting Lab: [facility] [address] Performing Lab: [facility] [address] [facility]ATE ([facility]) 6.8 ng/mL L 7-20 Aug 14, 2024 06:59 AM [facility] VITAMIN D, 25-HYDROXY Specimen Type: SERUM No comment entered. Ordering Provider: SILVIA REDDY Report Released Date/Time: Aug 11, 2024 03:58 PM Reporting Lab: [facility] [address] Performing Lab: [facility] [address] VITAMIN D, 25-HYDROXY 8.9 ng/mL L 30-96 Aug 14, 2024 05:08 AM [facility] GLUCOSE,BLOOD-poct (L) Specimen Type: BLOOD Comment: Test Performed by: [id number] Meter #: [id number] Ordering Provider: SILVIA REDDY Report Released Date/Time: Aug 14, 2024 05:52 AM Reporting Lab: [facility] [address] Performing Lab: [facility] [address] GLUCOSE,BLOOD- poct (STL) 135 mg/dL H 72-99 Aug 13, 2024 04:27 PM [facility] GLUCOSE,BLOOD-poct (STL) Specimen Type: BLOOD Comment: Test Performed by: [id number] Meter #: [id number] Ordering Provider: SILVIA REDDY Report Released Date/Time: Aug 13, 2024 04:41 PM Reporting Lab: [facility]1 [facility] [address] Performing Lab: [facility] [address] GLUCOSE,BLOOD- poct (STL) 181 mg/dL H -Aug 13, 2024 11:33 AM [facility] GLUCOSE,BLOOD-poct (STL) Specimen Type: BLOOD Comment: Test Performed by: [id number] Meter #: [id number] Ordering Provider: SILVIA REDDY Report Released Date/Time: Aug 13, 2024 03:55 PM Reporting Lab: [facility] [address] Performing Lab: [facility] [address] GLUCOSE,BLOOD- poct (STL) 140 mg/dL H -Aug 13, 2024 05:54 AM [facility] GLUCOSE,BLOOD-poct (STL) Specimen Type: BLOOD Comment: Test Performed by: [id number] Meter #: [id number] Ordering Provider: SILVIA REDDY Report Released Date/Time: Aug 13, 2024 06:20 AM Reporting Lab: [facility] [address] Performing Lab: [facility] [address] GLUCOSE,BLOOD- poct (STL) 112 mg/dL H Aug 12, 2024 04:35 PM [facility] GLUCOSE,BLOOD-poct (STL) Specimen Type: BLOOD Comment: Test Performed by: [id number] Meter #: [id number] Ordering Provider: SILVIA REDDY Report Released Date/Time: Aug 12, 2024 04:47 PM Reporting Lab: [facility] [address] Performing Lab: [facility] [address] GLUCOSE,BLOOD- poct (STL) 128 mg/dL H 72-99 Aug 12, 2024 11:26 AM [facility] GLUCOSE,BLOOD-poct (STL) Specimen Type: BLOOD Comment: Test Performed by: [id number] Meter #: [id number] Ordering Provider: SILVIA REDDY Report Released Date/Time: Aug 12, 2024 11:45 AM Reporting Lab: [facility] [address] Performing Lab: [facility]1 [place] [address] GLUCOSE,BLOOD- poct (STL) 188 mg/dL H 72-Aug 12, 2024 06:13 AM [facility] GLUCOSE,BLOOD-poct (STL) Specimen Type: BLOOD Comment: Test Performed by: [id number] Meter #: [id number] Ordering Provider: SILVIA REDDY Report Released Date/Time: Aug 12, 2024 06:25 AM Reporting Lab: [facility] [address] Performing Lab: [facility] [address] GLUCOSE,BLOOD- poct (STL) 116 mg/dL H 72-99 Aug 11, 2024 04:10 PM [facility] GLUCOSE,BLOOD-poct (STL) Specimen Type: BLOOD Comment: Test Performed by: [id number] Meter #: [id number] Ordering Provider: SILVIA REDDY Report Released Date/Time: Aug 11, 2024 04:27 PM Reporting Lab: [facility] [place] [address] Performing Lab: [facility] [address] GLUCOSE,BLOOD- poct (STL) 184 mg/dL H 72-99 Aug 11, 2024 01:44 PM [facility] MRSA SURVL NARES DNA Specimen [...] Aug 11, 2024 02:03 PM Reporting Lab: [address] [address] Performing Lab: [address] [address] MRSA SURVL NARES DNA Negative Negative Vital Signs: All taken on the encounter date This section contains inpatient and outpatient Vital Signs collected on the date of the Encounter. Date/Time Temperature Pulse Blood Pressure Respiratory Rate SP02 Pain Height Weight Body Mass Index Source Aug 19, 2024 07:31 PM 98.1 89 174/79 18 97 [facility] Aug 19, 2024 06:27 PM 0 [facility] Aug 19, 2024 10:00 AM 97.8 72 130/74 18 96 [facility] Aug 19, 2024 09:16 AM 0 [facility] Aug 19, 2024 05:26 AM 213.8 31 [facility] N Advance Directives: All historical [...] DISCUSSION ERICK BARDALES [facility]
--- OUTSIDE RECORDS SUMMARY | 2024-11-17 04:18 | XMS_ITS ---
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 Date/Time Encounter Type Encounter Description Reason Pro vider Source Aug 19, 2024 06:26 PM Inpatient Visit DAILY HOSPITALIZATION DATA [facility] Encounter Template Text not used by NE Plan of Treatment: Future Appointments (+ 6 [...] data comes from all [facility]. Appointment Date/Time Appointment Type Appointme [...] AM AMBULATORY - MEDICINE [facility] Sep 29, 2024 12:30 PM AMBULATORY - MEDICINE [facility] Oct 02, 2024 09:30 AM AMBULATORY [...] data comes from all [facility]. Test Date/Time Test Type Test Details Facility Name Aug 02, 2024 12:00 AM Laboratory - Chemistry Order CBC BLOOD STAT SP [facility] Aug 02, 2024 12:00 AM Laboratory - Chemistry Order COMPREHENSIVE METABOLIC PANEL GREEN LI/HEP BLD/PLAS PLASMA SP [facility] Aug 17, 2024 03:47 PM Consult Order [facility] [facility] [place] [place] [facility] Cons Bedside [facility] [...] 23, 2024 08:21 AM [facility] MAGNESIUM Specimen Type: PLASMA No comment entered. Ordering Provider: SILVIA REDDY Report Released Date/Time: Aug 22, 2024 11:26 AM Reporting Lab: [facility] [address] Performing Lab: [facility] [address] MAGNESIUM 1.8 mg/dL 1.6-2.6 Aug 23, 2024 08:21 AM [facility] CBC Specimen Type: BLOOD No comment entered. Ordering Provider: SILVIA REDDY Report Released Date/Time: Aug 22, 2024 11:19 AM Reporting Lab: [facility] [address] Performing Lab: [facility] [address] WBC 4.0 10*3/uL 3.6-11.2 RBC 3.65 10*6/uL [...] Aug 23, 2024 05:12 AM [facility] GLUCOSE,BLOOD-poct (STL) Specimen Type: BLOOD Comment: Test Performed by: [id number] Meter #: [id number] Ordering Provider: SILVIA REDDY Report Released Date/Time: Aug 23, 2024 05:23 AM Reporting Lab: [facility] [address] Performing Lab: [facility] #[facility] [address] GLUCOSE,BLOOD- poct (STL) 99 mg/dL 72-99 Aug 23, 2024 02:45 AM [facility] OCCULT BLOOD FIT X1 SCREEN Specimen Type: FECES No comment entered. Ordering Provider: SILVIA REDDY Report Released Date/Time: Aug 22, 2024 11:23 AM Reporting Lab: [address] [address] Performing Lab: [address] [address] OCCULT BLOOD (FIT) #1 OF 1 Negative Negative Aug 22, 2024 07:30 PM [facility] OCCULT BLOOD FIT X1 SCREEN Specimen Type: FECES No comment entered. Ordering Provider: SILVIA REDDY Report Released Date/Time: Aug 22, 2024 11:23 AM Reporting Lab: [address] [address] Performing Lab: [address] [address] OCCULT BLOOD (FIT) #1 OF 1 Negative Negative Aug 22, 2024 06:15 PM [facility] OCCULT BLOOD FIT X1 SCREEN Specimen Type: FECES No comment entered. Ordering Provider: SILVIA REDDY Report Released Date/Time: Aug 22, 2024 11:23 AM Reporting Lab: [address] [address] Performing Lab: [facility] [address] [facility] [address] OCCULT BLOOD (FIT) #1 OF 1 Negative Negative Aug 22, 2024 04:24 PM [facility] GLUCOSE,BLOOD-poct (STL) Specimen Type: BLOOD Comment: Test Performed by: [id number] Meter #: [id number] Ordering Provider: SILVIA REDDY Report Released Date/Time: Aug 22, 2024 04:36 PM Reporting Lab: [facility] [address] Performing Lab: [facility] #1 [facility] [address] GLUCOSE,BLOOD- poct (STL) 176 mg/dL H -Aug 22, 2024 04:23 PM [facility] GLUCOSE,BLOOD-poct (STL) Specimen Type: BLOOD Comment: Test Performed by: [id number] Meter #: [id number] Ordering Provider: SILVIA REDDY Report Released Date/Time: Aug 22, 2024 04:36 PM Reporting Lab: [facility] [address] Performing Lab: [facility] [address] GLUCOSE,BLOOD- poct (STL) 221 mg/dL H 72-Aug 22, 2024 11:15 AM [facility] GLUCOSE,BLOOD-poct (STL) Specimen Type: BLOOD Comment: Test Performed by: [id number] Meter #: [id number] Ordering Provider: SILVIA REDDY Report Released Date/Time: Aug 22, 2024 11:27 AM Reporting Lab: [facility] [address] Performing Lab: [facility] [address] GLUCOSE,BLOOD- poct (STL) 140 mg/dL H 72-Aug 22, 2024 08:03 AM [facility] FERRITIN Specimen Type: SERUM No comment entered. Ordering Provider: JUDIT PERKINS Report Released Date/Time: Aug 18, 2024 11:01 AM Reporting Lab: [facility] [address] [facility] [address] Performing Lab: [facility] [address] [facility] [address] FERRITIN 79.50 ng/mL 22-275 Aug 22, 2024 08:03 AM [facility] IRON/TIBC PROFILE Specimen Type: SERUM No comment entered. Ordering Provider: JUDIT PERKINS Report Released Date/Time: Aug 18, 2024 11:01 AM Reporting Lab: [address] [address] Performing Lab: [address] [address] TIBC 283 ug/dL 250-450 TRANSFERRIN 226 mg/dL 163-344 IRON SATURATION 7 L 20-50 IRON 19 ug/dL L 65-175 Aug 22, 2024 08:03 AM [facility] B12 Specimen Type: SERUM No comment entered. Ordering Provider: JUDIT PERKINS Report Released Date/Time: Aug 18, 2024 11:01 AM Reporting Lab: [facility] [address] Performing Lab: [facility]1 [facility] [address] B12 631 pg/mL 213-816 Aug 22, 2024 08:03 AM [facility] COMPREHENSIVE METABOLIC PANEL Specimen Type: PLASMA Comment: No hemolysis noted. Ordering Provider: SILVIA REDDY Report Released Date/Time: Aug 17, 2024 01:18 PM Reporting Lab: [facility] [address] [facility] [address] Performing Lab: [address] [address] CREATININE 0.80 mg/dL 0.7-1.3 UREA NITROGEN 9.7 [...] Reporting Lab: [facility] [address] Performing Lab: [facility] [address] WBC 3.5 10*3/uL L 3.6-11.2 RBC 3.23 [...] Aug 22, 2024 05:03 AM [facility] GLUCOSE,BLOOD-poct (STL) Specimen Type: BLOOD Comment: Test Performed by: [id number] Meter #: [id number] Ordering Provider: SILVIA REDDY Report Released Date/Time: Aug 22, 2024 06:17 AM Reporting Lab: [facility]1 [facility] [address] Performing Lab: [facility] [facility] [address] GLUCOSE,BLOOD- poct (STL) 170 mg/dL H 72-Aug 21, 2024 04:32 PM [facility] GLUCOSE,BLOOD-poct (STL) Specimen Type: BLOOD Comment: Test Performed by: [id number] Meter #: [id number] Ordering Provider: SILVIA REDDY Report Released Date/Time: Aug 21, 2024 04:49 PM Reporting Lab: [facility] [address] Performing Lab: [facility]1 [facility] [address] GLUCOSE,BLOOD- poct (STL) 169 mg/dL H -99 Aug 21, 2024 11:53 AM [facility] GLUCOSE,BLOOD-poct (STL) Specimen Type: BLOOD Comment: Test Performed by: [id number] Meter #: [id number] Ordering Provider: SILVIA REDDY Report Released Date/Time: Aug 21, 2024 12:11 PM Reporting Lab: [facility]1 [facility] [address] Performing Lab: [facility] [address] GLUCOSE,BLOOD- poct (STL) 149 mg/dL H 72-99 Aug 21, 2024 05:10 AM [facility] GLUCOSE,BLOOD-poct (STL) Specimen Type: BLOOD Comment: Test Performed by: [id number] Meter #: [id number] Ordering Provider: SILVIA REDDY Report Released Date/Time: Aug 21, 2024 05:27 AM Reporting Lab: [facility] [place] [address] Performing Lab: [facility] [address] [place] [id number] GLUCOSE,BLOOD- poct (STL) 118 mg/dL H 72-99 Aug 20, 2024 04:38 PM [facility] GLUCOSE,BLOOD-poct (STL) Specimen Type: BLOOD Comment: Test Performed by: [id number] Meter #: [id number] Ordering Provider: SILVIA REDDY Report Released Date/Time: Aug 21, 2024 01:55 AM Reporting Lab: [facility] [address] [place] [address] Performing Lab: [facility] [address] [place] [address] GLUCOSE,BLOOD- poct (STL) 169 mg/dL H 72-Aug 20, 2024 04:36 PM [facility] GLUCOSE,BLOOD-poct (STL) Specimen Type: BLOOD Comment: Test Performed by: [id number] Meter #: [id number] Ordering Provider: SILVIA REDDY Report Released Date/Time: Aug 21, 2024 01:55 AM Reporting Lab: [facility] [place] [address] Performing Lab: [facility] [place] [address] GLUCOSE,BLOOD- poct (STL) 395 mg/dL H 72-99 Aug 20, 2024 11:45 AM [facility] GLUCOSE,BLOOD-poct (STL) Specimen Type: BLOOD Comment: Test Performed by: [id number] Meter #: [id number] Ordering Provider: SILVIA REDDY Report Released Date/Time: Aug 20, 2024 11:56 AM Reporting Lab: [facility] [address] Performing Lab: [facility] [facility] [address] GLUCOSE,BLOOD- poct (STL) 169 mg/dL H 72-Aug 20, 2024 05:06 AM [facility] GLUCOSE,BLOOD-poct (STL) Specimen Type: BLOOD Comment: Test Performed by: [id number] Meter #: [id number] Ordering Provider: SILVIA REDDY Report Released Date/Time: Aug 20, 2024 06:05 AM Reporting Lab: [facility]1 [facility] [address] Performing Lab: [facility] [facility] [address] GLUCOSE,BLOOD- poct (STL) 115 mg/dL H 72-Aug 19, 2024 04:23 PM [facility] GLUCOSE,BLOOD-poct (STL) Specimen Type: BLOOD Comment: Test Performed by: [id number] Meter #: [id number] Ordering Provider: SILVIA REDDY Report Released Date/Time: Aug 19, 2024 05:54 PM Reporting Lab: [facility]1 [facility] [address] Performing Lab: [facility] [facility] [address] GLUCOSE,BLOOD- poct (STL) 137 mg/dL H 72-99 Aug 19, 2024 11:28 AM [facility] GLUCOSE,BLOOD-poct (STL) Specimen Type: BLOOD Comment: Test Performed by: [id number] Meter #: [id number] Ordering Provider: SILVIA REDDY Report Released Date/Time: Aug 19, 2024 11:51 AM Reporting Lab: [facility]1 [facility] [address] Performing Lab: [facility] [address] GLUCOSE,BLOOD- poct (STL) 190 mg/dL H 72-99 Aug 19, 2024 05:21 AM [facility] GLUCOSE,BLOOD-poct (STL) Specimen Type: BLOOD Comment: Test Performed by: [id number] Meter #: [id number] Ordering Provider: SILVIA REDDY Report Released Date/Time: Aug 19, 2024 05:56 AM Reporting Lab: [facility]1 [facility] [address] Performing Lab: [facility] [facility] [address] GLUCOSE,BLOOD- poct (STL) 130 mg/dL H Aug 18, 2024 04:49 PM [facility] GLUCOSE,BLOOD-poct (STL) Specimen Type: BLOOD Comment: Test Performed by: [id number] Meter #: [id number] Ordering Provider: SILVIA REDDY Report Released Date/Time: Aug 18, 2024 05:01 PM Reporting Lab: [facility] [address] Performing Lab: [facility]1 [facility] [address] GLUCOSE,BLOOD- poct (STL) 129 mg/dL H Aug 18, 2024 11:23 AM [facility] GLUCOSE,BLOOD-poct (STL) Specimen Type: BLOOD Comment: Test Performed by: [id number] Meter #: [id number] Ordering Provider: SILVIA REDDY Report Released Date/Time: Aug 18, 2024 11:41 AM Reporting Lab: [facility]1 [facility] [address] Performing Lab: [facility] [facility] [address] GLUCOSE,BLOOD- poct (STL) 180 mg/dL H Aug 18, 2024 05:08 AM [facility] GLUCOSE,BLOOD-poct (STL) Specimen Type: BLOOD Comment: Test Performed by: [id number] Meter #: [id number] Ordering Provider: SILVIA REDDY Report Released Date/Time: Aug 18, 2024 05:31 AM Reporting Lab: [facility] [place] [address] Performing Lab: [facility] [facility] [address] GLUCOSE,BLOOD- poct (STL) 127 mg/dL H -Aug 17, 2024 07:32 PM [facility] GLUCOSE,BLOOD-poct (STL) Specimen Type: BLOOD Comment: Test Performed by: [id number] Meter #: [id number] Ordering Provider: SILVIA REDDY Report Released Date/Time: Aug 17, 2024 07:59 PM Reporting Lab: [facility] [place] [address] Performing Lab: [facility] [place] [address] GLUCOSE,BLOOD- poct (STL) 154 mg/dL H -Aug 17, 2024 04:24 PM [facility] GLUCOSE,BLOOD-poct (STL) Specimen Type: BLOOD Comment: Test Performed by: [id number] Meter #: [id number] Ordering Provider: SILVIA REDDY Report Released Date/Time: Aug 17, 2024 04:35 PM Reporting Lab: [facility] [place] [address] Performing Lab: [facility] [place] [address] GLUCOSE,BLOOD- poct (STL) 178 mg/dL H -Aug 17, 2024 05:09 AM [facility] GLUCOSE,BLOOD-poct (STL) Specimen Type: BLOOD Comment: Test Performed by: [id number] Meter #: [id number] Ordering Provider: SILVIA REDDY Report Released Date/Time: Aug 17, 2024 05:54 AM Reporting Lab: [facility] [address] Performing Lab: [facility] [address] GLUCOSE,BLOOD- poct (STL) 124 mg/dL H 72-Aug 16, 2024 07:40 PM [facility] GLUCOSE,BLOOD-poct (STL) Specimen Type: BLOOD Comment: Test Performed by: [id number] Meter #: [id number] Ordering Provider: SILVIA REDDY Report Released Date/Time: Aug 16, 2024 08:28 PM Reporting Lab: [facility] [address] Performing Lab: [facility] [address] GLUCOSE,BLOOD- poct (STL) 144 mg/dL H -Aug 16, 2024 04:19 PM [facility] GLUCOSE,BLOOD-poct (STL) Specimen Type: BLOOD Comment: Test Performed by: [id number] Meter #: [id number] Ordering Provider: SILVIA REDDY Report Released Date/Time: Aug 16, 2024 04:45 PM Reporting Lab: [facility] [address] Performing Lab: [facility] [address] GLUCOSE,BLOOD- poct (STL) 138 mg/dL H 72-Aug 16, 2024 11:52 AM [facility] GLUCOSE,BLOOD-poct (STL) Specimen Type: BLOOD Comment: Test Performed by: [id number] Meter #: [id number] Ordering Provider: SILVIA REDDY Report Released Date/Time: Aug 16, 2024 12:04 PM Reporting Lab: [facility] [address] Performing Lab: [facility] [address] GLUCOSE,BLOOD- poct (STL) 135 mg/dL H 72-99 Aug 16, 2024 05:24 AM [facility] GLUCOSE,BLOOD-poct (STL) Specimen Type: BLOOD Comment: Test Performed by: [id number] Meter #: [id number] Ordering Provider: SILVIA REDDY Report Released Date/Time: Aug 16, 2024 05:38 AM Reporting Lab: [facility] [address] Performing Lab: [facility] [address] GLUCOSE,BLOOD- poct (STL) 151 mg/dL H Aug 15, 2024 07:31 PM [facility] GLUCOSE,BLOOD-poct (STL) Specimen Type: BLOOD Comment: Test Performed by: [id number] Meter #: [id number] Ordering Provider: SILVIA REDDY Report Released Date/Time: Aug 15, 2024 08:07 PM Reporting Lab: [facility] [address] Performing Lab: [facility] [address] GLUCOSE,BLOOD- poct (STL) 173 mg/dL H Aug 15, 2024 04:18 PM [facility] GLUCOSE,BLOOD-poct (STL) Specimen Type: BLOOD Comment: Test Performed by: [id number] Meter #: [id number] Ordering Provider: SILVIA REDDY Report Released Date/Time: Aug 15, 2024 04:59 PM Reporting Lab: [facility] [address] Performing Lab: [facility] [address] GLUCOSE,BLOOD- poct (STL) 136 mg/dL H Aug 15, 2024 04:16 PM [facility] GLUCOSE,BLOOD-poct (STL) Specimen Type: BLOOD Comment: Test Performed by: [id number] Meter #: [id number] Ordering Provider: SILVIA REDDY Report Released Date/Time: Aug 15, 2024 04:59 PM Reporting Lab: [facility] [place] [address] Performing Lab: [facility] [address] GLUCOSE,BLOOD- poct (STL) 194 mg/dL H 72-Aug 15, 2024 11:39 AM [facility] GLUCOSE,BLOOD-poct (STL) Specimen Type: BLOOD Comment: Test Performed by: [id number] Meter #: [id number] Ordering Provider: SILVIA REDDY Report Released Date/Time: Aug 15, 2024 12:00 PM Reporting Lab: [facility] [place] [address] Performing Lab: [facility] [place] [address] GLUCOSE,BLOOD- poct (STL) 127 mg/dL H -Aug 15, 2024 05:07 AM [facility] GLUCOSE,BLOOD-poct (STL) Specimen Type: BLOOD Comment: Test Performed by: [id number] Meter #: [id number] Ordering Provider: SILVIA REDDY Report Released Date/Time: Aug 15, 2024 06:14 AM Reporting Lab: [facility] [place] [address] Performing Lab: [facility] [place] [address] GLUCOSE,BLOOD- poct (STL) 151 mg/dL H -Aug 14, 2024 04:22 PM [facility] GLUCOSE,BLOOD-poct (STL) Specimen Type: BLOOD Comment: Test Performed by: [id number] Meter #: [id number] Ordering Provider: SILVIA REDDY Report Released Date/Time: Aug 14, 2024 04:52 PM Reporting Lab: [facility] [address] Performing Lab: [facility] [address] GLUCOSE,BLOOD- poct (STL) 129 mg/dL H 72-99 Aug 14, 2024 11:21 AM [facility] GLUCOSE,BLOOD-poct (STL) Specimen Type: BLOOD Comment: Test Performed by: [id number] Meter #: [id number] Ordering Provider: SILVIA REDDY Report Released Date/Time: Aug 14, 2024 11:37 AM Reporting Lab: [facility] [address] Performing Lab: [facility] [address] GLUCOSE,BLOOD- poct (STL) 135 mg/dL H 72-Aug 14, 2024 06:59 AM [facility] QUANTIFERON-TB,4 TUBE Specimen Type: BLOOD Comment: normalcy [...] For additional information, please refer to [email or web address] (This link is being provided for information/ educational purposes only.) Test Performed by [email or web address], [employer] [facility], [address] [place] [address] Tommie Garcia M.D., Ph.D., Director of Laboratories , [facility] [id number] Ordering Provider: SILVIA REDDY Report Released Date/Time: Aug 11, 2024 03:58 PM Reporting Lab: [facility] [address] [facility] [address] Performing Lab: [facility] [id number] [place] [address] .NIL - QUANTIFERON 0.04 [IU]/mL .MITOGEN-NIL 0.39 [IU]/mL .QUANTIFERON INDETERMINATE NEGATIVE .TB1-NIL <0.00 [IU]/mL .TB2-NIL <0.00 [IU]/mL Aug 14, 2024 06:59 AM [facility] MAGNESIUM Specimen Type: PLASMA Comment: No hemolysis noted. Ordering Provider: SILVIA REDDY Report Released Date/Time: Aug 11, 2024 03:58 PM Reporting Lab: [facility] [place] [phone] Performing Lab: [facility] [address] MAGNESIUM 1.9 mg/dL 1.6-2.6 Aug 14, 2024 06:59 AM [facility] B12 Specimen Type: SERUM No comment entered. Ordering Provider: SILVIA REDDY Report Released Date/Time: Aug 11, 2024 03:58 PM Reporting Lab: [facility] [address] Performing Lab: [facility] [address] B12 757 pg/mL 213-816 Aug 14, 2024 06:59 AM [facility] FOLATE (STL-MA) Specimen Type: SERUM No comment entered. Ordering Provider: SILVIA REDDY Report Released Date/Time: Aug 11, 2024 03:58 PM Reporting Lab: [facility] [address] Performing Lab: [facility] [address] FOLATE (STL-MA) 6.8 ng/mL L 7-20 Aug 14, 2024 06:59 AM [facility] VITAMIN D, 25-HYDROXY Specimen Type: SERUM No comment entered. Ordering Provider: SILVIA REDDY Report Released Date/Time: Aug 11, 2024 03:58 PM Reporting Lab: [facility] [address] Performing Lab: [facility] [address] VITAMIN D, 25-HYDROXY 8.9 ng/mL L 30-96 Aug 14, 2024 06:59 AM [facility] CBC Specimen Type: BLOOD No comment entered. Ordering Provider: SILVIA REDDY Report Released Date/Time: Aug 11, 2024 03:58 PM Reporting Lab: [facility] [address] Performing Lab: [facility] [address] WBC 4.1 10*3/uL 3.6-11.2 RBC 3.20 10*6/uL [...] 10*3/uL 0.00-0.20 Aug 14, 2024 06:59 AM [facility] COMPREHENSIVE METABOLIC PANEL Specimen Type: PLASMA Comment: No hemolysis noted. Ordering Provider: SILVIA REDDY Report Released Date/Time: Aug 11, 2024 03:58 PM Reporting Lab: [facility] [address] Performing Lab: [facility] [place] [id number] CREATININE 0.75 mg/dL 0.70-1.30 UREA NITROGEN 13.6 [...] >60 Aug 14, 2024 05:08 AM [facility] GLUCOSE,BLOOD-poct (STL) Specimen Type: BLOOD Comment: Test Performed by: [id number] Meter #: [id number] Ordering Provider: SILVIA REDDY Report Released Date/Time: Aug 14, 2024 05:52 AM Reporting Lab: [facility] [id number] Performing Lab: [facility] [id number] GLUCOSE,BLOOD- poct (STL) 135 mg/dL H 72-99 Aug 13, 2024 04:27 PM [facility] GLUCOSE,BLOOD-poct (STL) Specimen Type: BLOOD Comment: Test Performed by: [id number] Meter #: [id number] Ordering Provider: SILVIA REDDY Report Released Date/Time: Aug 13, 2024 04:41 PM Reporting Lab: [facility] [id number] Performing Lab: [facility] [id number] GLUCOSE,BLOOD- poct (STL) 181 mg/dL H -Aug 13, 2024 11:33 AM [facility] GLUCOSE,BLOOD-poct (STL) Specimen Type: BLOOD Comment: Test Performed by: [id number] Meter #: [id number] Ordering Provider: SILVIA REDDY Report Released Date/Time: Aug 13, 2024 03:55 PM Reporting Lab: [facility] [id number] Performing Lab: [facility] [place] [id number] GLUCOSE,BLOOD- poct (STL) 140 mg/dL H Aug 13, 2024 05:54 AM [facility] GLUCOSE,BLOOD-poct (STL) Specimen Type: BLOOD Comment: Test Performed by: [id number] Meter #: [id number] Ordering Provider: SILVIA REDDY Report Released Date/Time: Aug 13, 2024 06:20 AM Reporting Lab: [facility] [id number] Performing Lab: [facility] [address] GLUCOSE,BLOOD- poct (STL) 112 mg/dL H Aug 12, 2024 04:35 PM [facility] GLUCOSE,BLOOD-poct (STL) Specimen Type: BLOOD Comment: Test Performed by: [id number] Meter #: [id number] Ordering Provider: SILVIA REDDY Report Released Date/Time: Aug 12, 2024 04:47 PM Reporting Lab: [facility] [address] Performing Lab: [facility] [facility] [address] GLUCOSE,BLOOD- poct (STL) 128 mg/dL H 72-99 Aug 12, 2024 11:26 AM [facility] GLUCOSE,BLOOD-poct (STL) Specimen Type: BLOOD Comment: Test Performed by: [id number] Meter #: [id number] Ordering Provider: SILVIA REDDY Report Released Date/Time: Aug 12, 2024 11:45 AM Reporting Lab: [facility] [facility] [address] Performing Lab: [facility] [address] [place] [address] GLUCOSE,BLOOD- poct (STL) 188 mg/dL H -Aug 12, 2024 06:13 AM [facility] GLUCOSE,BLOOD-poct (STL) Specimen Type: BLOOD Comment: Test Performed by: [id number] Meter #: [id number] Ordering Provider: SILVIA REDDY Report Released Date/Time: Aug 12, 2024 06:25 AM Reporting Lab: [facility] [facility] [address] Performing Lab: [facility] [facility] [address] GLUCOSE,BLOOD- poct (STL) 116 mg/dL H 72-99 Aug 11, 2024 04:10 PM [facility] GLUCOSE,BLOOD-poct (STL) Specimen Type: BLOOD Comment: Test Performed by: [id number] Meter #: [id number] Ordering Provider: SILVIA REDDY Report Released Date/Time: Aug 11, 2024 04:27 PM Reporting Lab: [facility] [address] [place] [id number] Performing Lab: [facility] [address] GLUCOSE,BLOOD- poct (STL) 184 mg/dL H 72-99 Aug 11, 2024 01:44 PM [facility] MRSA SURVL NARES DNA Specimen Type: NARES [...] 11, 2024 02:03 PM Reporting Lab: [address] [address] Performing Lab: [address] [address] MRSA SURVL NARES DNA Negative Negative Vital Signs: All taken on the encounter date This section contains inpatient and outpatient Vital Signs collected on the date of the Encounter. Date/Time Temperature Pulse Blood Pressure Respiratory Rate SP02 Pain Height Weight Body Mass Index Source Aug 19, 2024 07:31 PM 98.1 89 174/79 18 97 [facility] Aug 19, 2024 06:27 PM 0 [facility] Aug 19, 2024 10:00 AM 97.8 72 130/74 18 96 [facility] Aug 19, 2024 09:16 AM 0 [facility] Aug 19, 2024 05:26 AM 213.8 31 [facility] Advance Directives: [...] ADVANCE DIRECTIVE DISCUSSION ERICK BARDALES [facility]
--- OUTSIDE RECORDS SUMMARY | 2024-11-17 04:19 | XMS_ITS ---
[place] DAILY HOSPITALIZATION DATA PROGRESS [facility] Encounter Summary Created on: November 16, 2024 CHET WALKER : 1950 Sex: Male Author Name [facility] Organization [facility] Address [address] [place] [address] Care Team Providers Care [employer] Operator Name Role Phone MANUEL BAIRD Primary [...] PART A Apr 08, 2017 PART A [id number] ASHLEY WALKER PATIENT Selected Encounter This section includes the information on record at ID for the Encounter. Date/Time Encounter Type Encounter Description Reason Pro vider Source Aug 19, 2024 11:51 PM Inpatient Visit DAILY HOSPITALIZATION DATA JOSSELINE [...] 24, 2024 10:00 AM AMBULATORY - MEDICINE [facility] Aug 24, 2024 10:30 AM AMBULATORY - MEDICINE [facility] Aug 30, 2024 09:30 AM AMBULATORY MEDICINE [facility] Aug 31, 2024 01:00 PM AMBULATORY - SURGERY [facility] Sep 21, 2024 01:30 PM AMBULATORY - MEDICINE [facility] Sep 22, 2024 11:00 AM AMBULATORY - MEDICINE [facility] Sep 29, 2024 12:30 PM AMBULATORY - MEDICINE [facility] Oct 02, 2024 09:30 AM AMBULATORY - MEDICINE [facility] Nov 20, 2024 10:30 AM AMBULATORY - SURGERY [facility] Nov 21, 2024 10:00 [...] Aug 17, 2024 03:47 PM Consult Order [facility] Cons Bedside [facility] [...] 22, 2024 11:26 AM Reporting Lab: [facility] [address] Performing Lab: [facility] [address] MAGNESIUM 1.8 mg/dL 1.6-2.6 Aug 23, 2024 08:21 AM [facility] CBC Specimen Type: BLOOD No comment entered. Ordering Provider: SILVIA REDDY Report Released Date/Time: Aug 22, 2024 11:19 AM Reporting Lab: [facility] [address] Performing Lab: [facility] [address] WBC 4.0 10*3/uL 3.6-11.2 RBC 3.65 10*6/uL [...] Specimen Type: BLOOD Comment: Test Performed by: [id number] Meter #: [id number] Ordering Provider: SILVIA REDDY Report Released Date/Time: Aug 23, 2024 05:23 AM Reporting Lab: [facility] [address] Performing Lab: [facility] [address] GLUCOSE,BLOOD- poct (STL) 99 mg/dL 72-99 Aug 23, 2024 02:45 AM [facility] OCCULT BLOOD FIT X1 SCREEN Specimen Type: FECES No comment entered. Ordering Provider: SILVIA REDDY Report Released Date/Time: Aug 22, 2024 11:23 AM Reporting Lab: [address] [address] Performing Lab: [address] [address] OCCULT BLOOD (FIT) #1 OF 1 Negative Negative Aug 22, 2024 07:30 PM [facility] OCCULT BLOOD FIT X1 SCREEN Specimen Type: FECES No comment entered. Ordering Provider: SILVIA REDDY Report Released Date/Time: Aug 22, 2024 11:23 AM Reporting Lab: [address] [address] Performing Lab: [address] [address] OCCULT BLOOD (FIT) #1 OF 1 Negative Negative Aug 22, 2024 06:15 PM [facility] OCCULT BLOOD FIT X1 SCREEN Specimen Type: FECES No comment entered. Ordering Provider: SILVIA REDDY Report Released Date/Time: Aug 22, 2024 11:23 AM Reporting Lab: [address] [address] Performing Lab: [place] [id number] [facility] [address] OCCULT BLOOD (FIT) #1 OF 1 Negative Negative Aug 22, 2024 04:24 PM [facility] GLUCOSE,BLOOD-poct (STL) Specimen Type: BLOOD Comment: Test Performed by: [id number] Meter #: [id number] Ordering Provider: SILVIA REDDY Report Released Date/Time: Aug 22, 2024 04:36 PM Reporting Lab: [facility] [address] Performing Lab: [facility] [address] GLUCOSE,BLOOD- poct (STL) 176 mg/dL H -Aug 22, 2024 04:23 PM [facility] GLUCOSE,BLOOD-poct (STL) Specimen Type: BLOOD Comment: Test Performed by: [id number] Meter #: [id number] Ordering Provider: SILVIA REDDY Report Released Date/Time: Aug 22, 2024 04:36 PM Reporting Lab: [facility] [address] Performing Lab: [facility] [address] GLUCOSE,BLOOD- poct (STL) 221 mg/dL H 72-Aug 22, 2024 11:15 AM [facility] GLUCOSE,BLOOD-poct (STL) Specimen Type: BLOOD Comment: Test Performed by: [id number] Meter #: [id number] Ordering Provider: SILVIA REDDY Report Released Date/Time: Aug 22, 2024 11:27 AM Reporting Lab: [facility] [address] Performing Lab: [facility] [address] GLUCOSE,BLOOD- poct (STL) 140 mg/dL H 72-Aug 22, 2024 08:[address] [facility] FERRITIN Specimen Type: SERUM No comment entered. Ordering Provider: JUDIT PERKINS Report Released Date/Time: Aug 18, 2024 11:01 AM Reporting Lab: [facility] [address] [facility] [address] Performing Lab: [facility] [address] [place] [address] FERRITIN 79.50 ng/mL 22-275 Aug 22, 2024 08:03 AM [facility] IRON/TIBC PROFILE Specimen Type: SERUM No comment entered. Ordering Provider: JUDIT PERKINS Report Released Date/Time: Aug 18, 2024 11:01 AM Reporting Lab: [address] [address] Performing Lab: [address] [address] TIBC 283 ug/dL 250-450 TRANSFERRIN 226 mg/dL 163-344 IRON SATURATION 7 L 20-50 IRON 19 ug/dL L 65-175 Aug 22, 2024 08:03 AM [facility] B12 Specimen Type: SERUM No comment entered. Ordering Provider: JUDIT PERKINS Report Released Date/Time: Aug 18, 2024 11:01 AM Reporting Lab: [facility] [address] Performing Lab: [facility] [facility] [address] B12 631 pg/mL 213-816 Aug 22, 2024 08:03 AM [facility] COMPREHENSIVE METABOLIC PANEL Specimen Type: PLASMA Comment: No hemolysis noted. Ordering Provider: SILVIA REDDY Report Released Date/Time: Aug 17, 2024 01:18 PM Reporting Lab: [facility] [address] [facility] [address] Performing Lab: [address] [address] CREATININE 0.80 mg/dL 0.7-1.3 UREA NITROGEN 9.7 [...] >60 Aug 22, 2024 08:03 AM [facility] CBC Specimen Type: BLOOD No comment entered. Ordering Provider: SILVIA REDDY Report Released Date/Time: Aug 17, 2024 01:18 PM Reporting Lab: [facility] [address] Performing Lab: [facility] [address] WBC 3.5 10*3/uL L 3.6-11.2 RBC 3.23 [...] Specimen Type: BLOOD Comment: Test Performed by: [id number] Meter #: [id number] Ordering Provider: SILVIA REDDY Report Released Date/Time: Aug 22, 2024 06:17 AM Reporting Lab: [facility] [facility] [address] Performing Lab: [facility] [facility] [address] GLUCOSE,BLOOD- poct (STL) 170 mg/dL H 72-Aug 21, 2024 04:32 PM [facility] GLUCOSE,BLOOD-poct (STL) Specimen Type: BLOOD Comment: Test Performed by: [id number] Meter #: [id number] Ordering Provider: SILVIA REDDY Report Released Date/Time: Aug 21, 2024 04:49 PM Reporting Lab: [facility] [address] Performing Lab: [facility] [facility] [address] GLUCOSE,BLOOD- poct (STL) 169 mg/dL H -Aug 21, 2024 11:53 AM [facility] GLUCOSE,BLOOD-poct (STL) Specimen Type: BLOOD Comment: Test Performed by: [id number] Meter #: [id number] Ordering Provider: SILVIA REDDY Report Released Date/Time: Aug 21, 2024 12:11 PM Reporting Lab: [facility] [facility] [address] Performing Lab: [facility] [facility] [address] GLUCOSE,BLOOD- poct (STL) 149 mg/dL H 72-Aug 21, 2024 05:10 AM [facility] GLUCOSE,BLOOD-poct (STL) Specimen Type: BLOOD Comment: Test Performed by: [id number] Meter #: [id number] Ordering Provider: SILVIA REDDY Report Released Date/Time: Aug 21, 2024 05:27 AM Reporting Lab: [facility] [facility] [address] Performing Lab: [facility] [facility] [address] GLUCOSE,BLOOD- poct (STL) 118 mg/dL H 72-Aug 20, 2024 04:38 PM [facility] GLUCOSE,BLOOD-poct (STL) Specimen Type: BLOOD Comment: Test Performed by: [id number] Meter #: [id number] Ordering Provider: SILVIA REDDY Report Released Date/Time: Aug 21, 2024 01:55 AM Reporting Lab: [facility] [facility] [address] Performing Lab: [facility] [place] [address] GLUCOSE,BLOOD- poct (STL) 169 mg/dL H -Aug 20, 2024 04:36 PM [facility] GLUCOSE,BLOOD-poct (STL) Specimen Type: BLOOD Comment: Test Performed by: [id number] Meter #: [id number] Ordering Provider: SILVIA REDDY Report Released Date/Time: Aug 21, 2024 01:55 AM Reporting Lab: [facility] [facility] [address] Performing Lab: [facility] [facility] [address] GLUCOSE,BLOOD- poct (STL) 395 mg/dL H 72-Aug 20, 2024 11:45 AM [facility] GLUCOSE,BLOOD-poct (STL) Specimen Type: BLOOD Comment: Test Performed by: [id number] Meter #: [id number] Ordering Provider: SILVIA REDDY Report Released Date/Time: Aug 20, 2024 11:56 AM Reporting Lab: [facility] [address] [place] [address] Performing Lab: [facility] [facility] [address] GLUCOSE,BLOOD- poct (STL) 169 mg/dL H -Aug 20, 2024 05:06 AM [facility] GLUCOSE,BLOOD-poct (STL) Specimen Type: BLOOD Comment: Test Performed by: [id number] Meter #: [id number] Ordering Provider: SILVIA REDDY Report Released Date/Time: Aug 20, 2024 06:05 AM Reporting Lab: [facility] [facility] [address] Performing Lab: [facility] [facility] [address] GLUCOSE,BLOOD- poct (STL) 115 mg/dL H -Aug 19, 2024 04:23 PM [facility] GLUCOSE,BLOOD-poct (STL) Specimen Type: BLOOD Comment: Test Performed by: [id number] Meter #: [id number] Ordering Provider: SILVIA REDDY Report Released Date/Time: Aug 19, 2024 05:54 PM Reporting Lab: [facility] [facility] [address] Performing Lab: [facility] [facility] [address] GLUCOSE,BLOOD- poct (STL) 137 mg/dL H -Aug 19, 2024 11:28 AM [facility] GLUCOSE,BLOOD-poct (STL) Specimen Type: BLOOD Comment: Test Performed by: [id number] Meter #: [id number] Ordering Provider: SILVIA REDDY Report Released Date/Time: Aug 19, 2024 11:51 AM Reporting Lab: [facility] [address] Performing Lab: [facility] [facility] [address] GLUCOSE,BLOOD- poct (STL) 190 mg/dL H Aug 19, 2024 05:21 AM [facility] GLUCOSE,BLOOD-poct (STL) Specimen Type: BLOOD Comment: Test Performed by: [id number] Meter #: [id number] Ordering Provider: SILVIA REDDY Report Released Date/Time: Aug 19, 2024 05:56 AM Reporting Lab: [facility] [address] Performing Lab: [facility] [facility] [address] GLUCOSE,BLOOD- poct (STL) 130 mg/dL H Aug 18, 2024 04:49 PM [facility] GLUCOSE,BLOOD-poct (STL) Specimen Type: BLOOD Comment: Test Performed by: [id number] Meter #: [id number] Ordering Provider: SILVIA REDDY Report Released Date/Time: Aug 18, 2024 05:01 PM Reporting Lab: [facility] [facility] [address] Performing Lab: [facility] [facility] [address] GLUCOSE,BLOOD- poct (STL) 129 mg/dL H Aug 18, 2024 11:23 AM [facility] GLUCOSE,BLOOD-poct (STL) Specimen Type: BLOOD Comment: Test Performed by: [id number] Meter #: [id number] Ordering Provider: SILVIA REDDY Report Released Date/Time: Aug 18, 2024 11:41 AM Reporting Lab: [facility] [facility] [address] Performing Lab: [facility] [facility] [address] GLUCOSE,BLOOD- poct (STL) 180 mg/dL H Aug 18, 2024 05:08 AM [facility] GLUCOSE,BLOOD-poct (STL) Specimen Type: BLOOD Comment: Test Performed by: [id number] Meter #: [id number] Ordering Provider: SILVIA REDDY Report Released Date/Time: Aug 18, 2024 05:31 AM Reporting Lab: [facility] [facility] [address] Performing Lab: [facility] [facility] [address] GLUCOSE,BLOOD- poct (STL) 127 mg/dL H -Aug 17, 2024 07:32 PM [facility] GLUCOSE,BLOOD-poct (STL) Specimen Type: BLOOD Comment: Test Performed by: [id number] Meter #: [id number] Ordering Provider: SILVIA REDDY Report Released Date/Time: Aug 17, 2024 07:59 PM Reporting Lab: [facility] [address] Performing Lab: [facility] [address] GLUCOSE,BLOOD- poct (STL) 154 mg/dL H -Aug 17, 2024 04:24 PM [facility] GLUCOSE,BLOOD-poct (STL) Specimen Type: BLOOD Comment: Test Performed by: [id number] Meter #: [id number] Ordering Provider: SILVIA REDDY Report Released Date/Time: Aug 17, 2024 04:35 PM Reporting Lab: [facility] [address] Performing Lab: [facility] [address] GLUCOSE,BLOOD- poct (STL) 178 mg/dL H -Aug 17, 2024 05:09 AM [facility] GLUCOSE,BLOOD-poct (STL) Specimen Type: BLOOD Comment: Test Performed by: [id number] Meter #: [id number] Ordering Provider: SILVIA REDDY Report Released Date/Time: Aug 17, 2024 05:54 AM Reporting Lab: [facility] [place] [address] Performing Lab: [facility] [address] GLUCOSE,BLOOD- poct (STL) 124 mg/dL H -Aug 16, 2024 07:40 PM [facility] GLUCOSE,BLOOD-poct (STL) Specimen Type: BLOOD Comment: Test Performed by: [id number] Meter #: [id number] Ordering Provider: SILVIA REDDY Report Released Date/Time: Aug 16, 2024 08:28 PM Reporting Lab: [facility] [address] Performing Lab: [facility] [address] GLUCOSE,BLOOD- poct (STL) 144 mg/dL H Aug 16, 2024 04:19 PM [facility] GLUCOSE,BLOOD-poct (STL) Specimen Type: BLOOD Comment: Test Performed by: [id number] Meter #: [id number] Ordering Provider: SILVIA REDDY Report Released Date/Time: Aug 16, 2024 04:45 PM Reporting Lab: [facility] [address] Performing Lab: [facility] [address] GLUCOSE,BLOOD- poct (STL) 138 mg/dL H Aug 16, 2024 11:52 AM [facility] GLUCOSE,BLOOD-poct (STL) Specimen Type: BLOOD Comment: Test Performed by: [id number] Meter #: [id number] Ordering Provider: SILVIA REDDY Report Released Date/Time: Aug 16, 2024 12:04 PM Reporting Lab: [facility] [address] Performing Lab: [facility] [address] GLUCOSE,BLOOD- poct (STL) 135 mg/dL H Aug 16, 2024 05:24 AM [facility] GLUCOSE,BLOOD-poct (STL) Specimen Type: BLOOD Comment: Test Performed by: [id number] Meter #: [id number] Ordering Provider: SILVIA REDDY Report Released Date/Time: Aug 16, 2024 05:38 AM Reporting Lab: [facility] [address] Performing Lab: [facility] [address] GLUCOSE,BLOOD- poct (STL) 151 mg/dL H Aug 15, 2024 07:31 PM [facility] GLUCOSE,BLOOD-poct (STL) Specimen Type: BLOOD Comment: Test Performed by: [id number] Meter #: [id number] Ordering Provider: SILVIA REDDY Report Released Date/Time: Aug 15, 2024 08:07 PM Reporting Lab: [facility] [address] Performing Lab: [facility] [address] GLUCOSE,BLOOD- poct (STL) 173 mg/dL H Aug 15, 2024 04:18 PM [facility] GLUCOSE,BLOOD-poct (STL) Specimen Type: BLOOD Comment: Test Performed by: [id number] Meter #: [id number] Ordering Provider: SILVIA REDDY Report Released Date/Time: Aug 15, 2024 04:59 PM Reporting Lab: [facility] [facility] [address] Performing Lab: [facility] [address] GLUCOSE,BLOOD- poct (STL) 136 mg/dL H Aug 15, 2024 04:16 PM [facility] GLUCOSE,BLOOD-poct (STL) Specimen Type: BLOOD Comment: Test Performed by: [id number] Meter #: [id number] Ordering Provider: SILVIA REDDY Report Released Date/Time: Aug 15, 2024 04:59 PM Reporting Lab: [facility] [address] Performing Lab: [facility] [address] GLUCOSE,BLOOD- poct (STL) 194 mg/dL H -Aug 15, 2024 11:39 AM [facility] GLUCOSE,BLOOD-poct (STL) Specimen Type: BLOOD Comment: Test Performed by: [id number] Meter #: [id number] Ordering Provider: SILVIA REDDY Report Released Date/Time: Aug 15, 2024 12:00 PM Reporting Lab: [facility] [address] Performing Lab: [facility] [address] GLUCOSE,BLOOD- poct (STL) 127 mg/dL H -Aug 15, 2024 05:07 AM [facility] GLUCOSE,BLOOD-poct (STL) Specimen Type: BLOOD Comment: Test Performed by: [id number] Meter #: [id number] Ordering Provider: SILVIA REDDY Report Released Date/Time: Aug 15, 2024 06:14 AM Reporting Lab: [facility] [address] Performing Lab: [facility] [address] GLUCOSE,BLOOD- poct (STL) 151 mg/dL H -Aug 14, 2024 04:22 PM [facility] GLUCOSE,BLOOD-poct (STL) Specimen Type: BLOOD Comment: Test Performed by: [id number] Meter #: [id number] Ordering Provider: SILVIA REDDY Report Released Date/Time: Aug 14, 2024 04:52 PM Reporting Lab: [facility] [place] [address] Performing Lab: [facility] [address] GLUCOSE,BLOOD- poct (STL) 129 mg/dL H 72-99 Aug 14, 2024 11:21 AM [facility] GLUCOSE,BLOOD-poct (STL) Specimen Type: BLOOD Comment: Test Performed by: [id number] Meter #: [id number] Ordering Provider: SILVIA REDDY Report Released Date/Time: Aug 14, 2024 11:37 AM Reporting Lab: [facility] [address] Performing Lab: [facility] [address] GLUCOSE,BLOOD- poct (STL) 135 mg/dL H 72-99 [...] For additional information, please refer to http://education. Anaplan/faq/UUL029 (This link is being provided for information/ educational purposes only.) Test Performed by [employer], ip.access [facility], [address] [place] [address] Tommie Garcia M.D., Ph.D., Director of Laboratories , [facility] [id number] Ordering Provider: SILVIA REDDY Report Released Date/Time: Aug 11, 2024 03:58 PM Reporting Lab: [facility] [address] [facility] [address] Performing Lab: [facility] [id number] [place] [id number] .NIL - QUANTIFERON 0.04 [IU]/mL .MITOGEN-NIL 0.39 [IU]/mL .QUANTIFERON INDETERMINATE NEGATIVE .TB1-NIL <0.00 [IU]/mL .TB2-NIL <0.00 [IU]/mL Aug 14, 2024 06:59 AM [facility] MAGNESIUM Specimen Type: PLASMA Comment: No hemolysis noted. Ordering Provider: SILVIA REDDY Report Released Date/Time: Aug 11, 2024 03:58 PM Reporting Lab: [facility] [address] Performing Lab: [facility] [address] MAGNESIUM 1.9 mg/dL 1.6-2.6 Aug 14, 2024 06:59 AM [facility] FOLATE (STL-MA) Specimen Type: SERUM No comment entered. Ordering Provider: SILVIA REDDY Report Released Date/Time: Aug 11, 2024 03:58 PM Reporting Lab: [facility] [address] Performing Lab: [facility] [address] FOLATE (STL-MA) 6.8 ng/mL L 7-20 Aug 14, 2024 06:59 AM [facility] VITAMIN D, 25-HYDROXY Specimen Type: SERUM No comment entered. Ordering Provider: SILVIA REDDY Report Released Date/Time: Aug 11, 2024 03:58 PM Reporting Lab: [facility] [address] Performing Lab: [facility] [address] VITAMIN D, 25-HYDROXY 8.9 ng/mL L 30-96 Aug 14, 2024 06:59 AM [facility] B12 Specimen Type: SERUM No comment entered. Ordering Provider: SILVIA REDDY Report Released Date/Time: Aug 11, 2024 03:58 PM Reporting Lab: [facility] [address] Performing Lab: [facility] #[address] [place] [id number] B12 757 pg/mL 213-816 Aug 14, 2024 06:59 AM [facility] COMPREHENSIVE METABOLIC PANEL Specimen Type: PLASMA Comment: No hemolysis noted. Ordering Provider: SILVIA REDDY Report Released Date/Time: Aug 11, 2024 03:58 PM Reporting Lab: [facility] [address] Performing Lab: [facility] [address] CREATININE 0.75 mg/dL 0.70-1.30 UREA NITROGEN 13.6 [...] 95.88 >60 Aug 14, 2024 06:59 AM [facility] CBC Specimen Type: BLOOD No comment entered. Ordering Provider: SILVIA REDDY Report Released Date/Time: Aug 11, 2024 03:58 PM Reporting Lab: [facility] [address] Performing Lab: [facility] [address] WBC 4.1 10*3/uL 3.6-11.2 RBC 3.20 10*6/uL [...] Specimen Type: BLOOD Comment: Test Performed by: [id number] Meter #: [id number] Ordering Provider: SILVIA REDDY Report Released Date/Time: Aug 14, 2024 05:52 AM Reporting Lab: [facility] [address] Performing Lab: [facility] [address] GLUCOSE,BLOOD- poct (STL) 135 mg/dL H 72-99 Aug 13, 2024 04:27 PM [facility] GLUCOSE,BLOOD-poct (STL) Specimen Type: BLOOD Comment: Test Performed by: [id number] Meter #: [id number] Ordering Provider: SILVIA REDDY Report Released Date/Time: Aug 13, 2024 04:41 PM Reporting Lab: [facility] [facility] [address] Performing Lab: [facility] [address] GLUCOSE,BLOOD- poct (STL) 181 mg/dL H -Aug 13, 2024 11:33 AM [facility] GLUCOSE,BLOOD-poct (STL) Specimen Type: BLOOD Comment: Test Performed by: [id number] Meter #: [id number] Ordering Provider: SILVIA REDDY Report Released Date/Time: Aug 13, 2024 03:55 PM Reporting Lab: [facility] [address] Performing Lab: [facility] [place] [address] GLUCOSE,BLOOD- poct (STL) 140 mg/dL H Aug 13, 2024 05:54 AM [facility] GLUCOSE,BLOOD-poct (STL) Specimen Type: BLOOD Comment: Test Performed by: [id number] Meter #: [id number] Ordering Provider: SILVIA REDDY Report Released Date/Time: Aug 13, 2024 06:20 AM Reporting Lab: [facility] [address] Performing Lab: [facility] [address] GLUCOSE,BLOOD- poct (STL) 112 mg/dL H Aug 12, 2024 04:35 PM [facility] GLUCOSE,BLOOD-poct (STL) Specimen Type: BLOOD Comment: Test Performed by: [id number] Meter #: [id number] Ordering Provider: SILVIA REDDY Report Released Date/Time: Aug 12, 2024 04:47 PM Reporting Lab: [facility] [facility] [address] Performing Lab: [facility] [facility] [address] GLUCOSE,BLOOD- poct (STL) 128 mg/dL H 72-99 Aug 12, 2024 11:26 AM [facility] GLUCOSE,BLOOD-poct (STL) Specimen Type: BLOOD Comment: Test Performed by: [id number] Meter #: [id number] Ordering Provider: SILVIA REDDY Report Released Date/Time: Aug 12, 2024 11:45 AM Reporting Lab: [facility] [facility] [address] Performing Lab: [facility] [facility] [address] GLUCOSE,BLOOD- poct (STL) 188 mg/dL H 72-Aug 12, 2024 06:13 AM [facility] GLUCOSE,BLOOD-poct (STL) Specimen Type: BLOOD Comment: Test Performed by: [id number] Meter #: [id number] Ordering Provider: SILVIA REDDY Report Released Date/Time: Aug 12, 2024 06:25 AM Reporting Lab: [facility] [facility] [address] Performing Lab: [facility] [facility] [address] GLUCOSE,BLOOD- poct (STL) 116 mg/dL H 72-99 Aug 11, 2024 04:10 PM [facility] GLUCOSE,BLOOD-poct (STL) Specimen Type: BLOOD Comment: Test Performed by: [id number] Meter #: [id number] Ordering Provider: SILVIA REDDY Report Released Date/Time: Aug 11, 2024 04:27 PM Reporting Lab: [facility] [place] [address] Performing Lab: [facility] [place] [address] GLUCOSE,BLOOD- poct (STL) 184 mg/dL H 72-99 Aug 11, 2024 01:44 PM [facility] MRSA SURVL NARES DNA [...] 11, 2024 02:03 PM Reporting Lab: [address] [address] Performing Lab: [address] [address] MRSA SURVL NARES DNA Negative Negative Vital Signs: All taken on the encounter date This section contains inpatient and outpatient Vital Signs collected on the date of the Encounter. Date/Time Temperature Pulse Blood Pressure Respiratory Rate SP02 Pain Height Weight Body Mass Index Source Aug 19, 2024 07:31 PM 98.1 89 174/79 18 97 [facility] Aug 19, 2024 06:27 PM 0 [facility] Aug 19, 2024 10:00 AM 97.8 72 130/74 18 96 [facility] Aug 19, 2024 09:16 AM 0 [facility] Aug 19, 2024 05:26 AM 213.8 31 [facility] Advance Directives: All [...] ADVANCE DIRECTIVE DISCUSSION ERICK BARDALES [facility]
--- OUTSIDE RECORDS SUMMARY | 2024-11-17 04:19 | XMS_ITS ---
[place] DAILY HOSPITALIZATION DATA [facility] Encounter Summary Created on: November 16, 2024 CHET WALKER : 1950 Sex: Male Author Name [facility] [place] [facility] [place] Address [address] [place] [address] Care Team Providers Care Environmental Lawyer Name Role Phone MANUEL BAIRD Primary Care [...] PART A Apr 08, 2017 PART A [id number] ASHLEY WALKER PATIENT Selected Encounter This section includes the information on record at [place] for the Encounter. Date/Time Encounter Type Encounter Description Reason Pro vider Source Aug 20, 2024 04:06 PM Inpatient Visit DAILY HOSPITALIZATION DATA [facility] Encounter Template Text not used by [place] [...] The data comes from all [facility] Appointment Date/Time Appointment Type Appointme nt Facility Name Aug 24, 2024 10:00 AM AMBULATORY - MEDICINE [facility] Aug 24, 2024 10:30 AM AMBULATORY - MEDICINE [facility] Aug 30, 2024 09:30 AM [facility]ATORY [facility]ICINE [facility] Aug 31, 2024 01:00 PM AMBULATORY - SURGERY [facility] Sep 21, 2024 01:30 PM AMBULATORY - MEDICINE [facility] Sep 22, 2024 11:00 AM AMBULATORY - MEDICINE [facility] Sep 29, 2024 12:30 PM AMBULATORY - MEDICINE [facility] Oct 02, 2024 09:30 AM AMBULATORY - MEDICINE [facility] Nov 20, 2024 10:30 AM AMBULATORY - SURGERY [facility] Nov 21, 2024 10:00 AM AMBULATORY - NONE [facility] Dec 11, 2024 10:30 AM [facility] The data comes from all [facility] Test Date/Time Test Type Test Details Facility Name Aug 02, 2024 12:00 AM Laboratory - Chemistry Order COMPREHENSIVE METABOLIC PANEL GREEN LI/HEP BLD/PLAS PLASMA SP [facility] Aug 02, 2024 12:00 AM Laboratory - Chemistry Order CBC BLOOD STAT SP [facility] Aug 17, 2024 03:47 PM Consult Order [facility] Cons Bedside [facility] Lab Results: [...] Range Comment Aug 23, 2024 08:21 AM [facility] MAGNESIUM Specimen Type: PLASMA No comment entered. Ordering Provider: SILVIA REDDY Report Released Date/Time: Aug 22, 2024 11:26 AM Reporting Lab: [facility] [address] Performing Lab: [facility] [address] MAGNESIUM 1.8 mg/dL 1.6-2.6 Aug 23, 2024 08:21 AM [facility] CBC Specimen Type: BLOOD No comment entered. Ordering Provider: SILVIA REDDY Report Released Date/Time: Aug 22, 2024 11:19 AM Reporting Lab: [facility] [address] Performing Lab: [facility] [address] WBC 4.0 10*3/uL 3.6-11.2 RBC 3.65 10*6/uL [...] 10*3/uL 0.00-0.20 Aug 23, 2024 05:12 AM [facility] GLUCOSE,BLOOD-poct (STL) Specimen Type: BLOOD Comment: Test Performed by: [id number] Meter #: [id number] Ordering Provider: SILVIA REDDY Report Released Date/Time: Aug 23, 2024 05:23 AM Reporting Lab: [facility] [address] Performing Lab: [facility] [address] GLUCOSE,BLOOD- poct (STL) 99 mg/dL 72-99 Aug 23, 2024 02:45 AM [facility] OCCULT BLOOD FIT X1 SCREEN Specimen Type: FECES No comment entered. Ordering Provider: SILVIA REDDY Report Released Date/Time: Aug 22, 2024 11:23 AM Reporting Lab: [address] [address] Performing Lab: [address] [address] OCCULT BLOOD (FIT) #1 OF 1 Negative Negative Aug 22, 2024 07:30 PM [facility] OCCULT BLOOD FIT X1 SCREEN Specimen Type: FECES No comment entered. Ordering Provider: SILVIA REDDY Report Released Date/Time: Aug 22, 2024 11:23 AM Reporting Lab: [address] [address] Performing Lab: [address] [address] OCCULT BLOOD (FIT) #1 OF 1 Negative Negative Aug 22, 2024 06:15 PM [facility] OCCULT BLOOD FIT X1 SCREEN Specimen Type: FECES No comment entered. Ordering Provider: SILVIA REDDY Report Released Date/Time: Aug 22, 2024 11:23 AM Reporting Lab: [address] [address] Performing Lab: [facility] [address] [facility] [address] OCCULT BLOOD (FIT) #1 OF 1 Negative Negative Aug 22, 2024 04:24 PM [facility] GLUCOSE,BLOOD-poct (STL) Specimen Type: BLOOD Comment: Test Performed by: [id number] Meter #: [id number] Ordering Provider: SILVIA REDDY Report Released Date/Time: Aug 22, 2024 04:36 PM Reporting Lab: [facility] [address] Performing Lab: [facility] [address] GLUCOSE,BLOOD- poct (STL) 176 mg/dL H -Aug 22, 2024 04:23 PM [facility] GLUCOSE,BLOOD-poct (STL) Specimen Type: BLOOD Comment: Test Performed by: [id number] Meter #: [id number] Ordering Provider: SILVIA REDDY Report Released Date/Time: Aug 22, 2024 04:36 PM Reporting Lab: [facility] [address] Performing Lab: [facility] [address] GLUCOSE,BLOOD- poct (STL) 221 mg/dL H 72-Aug 22, 2024 11:15 AM [facility] GLUCOSE,BLOOD-poct (STL) Specimen Type: BLOOD Comment: Test Performed by: [id number] Meter #: [id number] Ordering Provider: SILVIA REDDY Report Released Date/Time: Aug 22, 2024 11:27 AM Reporting Lab: [facility] [address] Performing Lab: [facility] [address] GLUCOSE,BLOOD- poct (STL) 140 mg/dL H 72-Aug 22, 2024 08:03 AM [facility] FERRITIN Specimen Type: SERUM No comment entered. Ordering Provider: JUDIT PERKINS Report Released Date/Time: Aug 18, 2024 11:01 AM Reporting Lab: [facility] [address] [facility] [address] Performing Lab: [facility] [address] [facility] [address] FERRITIN 79.50 ng/mL 22-275 Aug 22, 2024 08:03 AM [facility] IRON/TIBC PROFILE Specimen Type: SERUM No comment entered. Ordering Provider: JUDIT PERKINS Report Released Date/Time: Aug 18, 2024 11:01 AM Reporting Lab: [address] [address] Performing Lab: [address] [address] TIBC 283 ug/dL 250-450 TRANSFERRIN 226 mg/dL 163-344 IRON SATURATION 7 L 20-50 IRON 19 ug/dL L 65-175 Aug 22, 2024 08:03 AM [facility] B12 Specimen Type: SERUM No comment entered. Ordering Provider: JUDIT PERKINS Report Released Date/Time: Aug 18, 2024 11:01 AM Reporting Lab: [facility] [address] Performing Lab: [facility] [address] B12 631 pg/mL 213-816 Aug 22, 2024 08:03 AM [facility] COMPREHENSIVE METABOLIC PANEL Specimen Type: PLASMA Comment: No hemolysis noted. Ordering Provider: SILVIA REDDY Report Released Date/Time: Aug 17, 2024 01:18 PM Reporting Lab: [facility] [address] [facility] [address] Performing Lab: [address] [address] CREATININE 0.80 mg/dL 0.7-1.3 UREA NITROGEN 9.7 [...] Reporting Lab: [facility] [address] Performing Lab: [facility] [address] WBC 3.5 10*3/uL L 3.6-11.2 RBC 3.23 [...] NRBC% 0 Aug 22, 2024 05:03 AM [facility] GLUCOSE,BLOOD-poct (STL) Specimen Type: BLOOD Comment: Test Performed by: [id number] Meter #: [id number] Ordering Provider: SILVIA REDDY Report Released Date/Time: Aug 22, 2024 06:17 AM Reporting Lab: [facility] [address] Performing Lab: [facility] [address] GLUCOSE,BLOOD- poct (STL) 170 mg/dL H 72-Aug 21, 2024 04:32 PM [facility] GLUCOSE,BLOOD-poct (STL) Specimen Type: BLOOD Comment: Test Performed by: [id number] Meter #: [id number] Ordering Provider: SILVIA REDDY Report Released Date/Time: Aug 21, 2024 04:49 PM Reporting Lab: [facility] [address] Performing Lab: [facility] [address] GLUCOSE,BLOOD- poct (STL) 169 mg/dL H -99 Aug 21, 2024 11:53 AM [facility] GLUCOSE,BLOOD-poct (STL) Specimen Type: BLOOD Comment: Test Performed by: [id number] Meter #: [id number] Ordering Provider: SILVIA REDDY Report Released Date/Time: Aug 21, 2024 12:11 PM Reporting Lab: [facility] [address] Performing Lab: [facility] [address] GLUCOSE,BLOOD- poct (STL) 149 mg/dL H 72-99 Aug 21, 2024 05:10 AM [facility] GLUCOSE,BLOOD-poct (STL) Specimen Type: BLOOD Comment: Test Performed by: [id number] Meter #: [id number] Ordering Provider: SILVIA REDDY Report Released Date/Time: Aug 21, 2024 05:27 AM Reporting Lab: [facility] [place] [address] Performing Lab: [facility] [place] [phone] GLUCOSE,BLOOD- poct (STL) 118 mg/dL H 72-99 Aug 20, 2024 04:38 PM [facility] GLUCOSE,BLOOD-poct (STL) Specimen Type: BLOOD Comment: Test Performed by: [id number] Meter #: [id number] Ordering Provider: SILVIA REDDY Report Released Date/Time: Aug 21, 2024 01:55 AM Reporting Lab: [facility] [place] [address] Performing Lab: [facility] [place] [address] GLUCOSE,BLOOD- poct (STL) 169 mg/dL H 72-Aug 20, 2024 04:36 PM [facility] GLUCOSE,BLOOD-poct (STL) Specimen Type: BLOOD Comment: Test Performed by: [id number] Meter #: [id number] Ordering Provider: SILVIA REDDY Report Released Date/Time: Aug 21, 2024 01:55 AM Reporting Lab: [facility] [place] [address] Performing Lab: [facility] [place] [address] GLUCOSE,BLOOD- poct (STL) 395 mg/dL H 72-99 Aug 20, 2024 11:45 AM [facility] GLUCOSE,BLOOD-poct (STL) Specimen Type: BLOOD Comment: Test Performed by: [id number] Meter #: [id number] Ordering Provider: SILVIA REDDY Report Released Date/Time: Aug 20, 2024 11:56 AM Reporting Lab: [facility] [address] Performing Lab: [facility] [address] GLUCOSE,BLOOD- poct (STL) 169 mg/dL H 72-Aug 20, 2024 05:06 AM [facility] GLUCOSE,BLOOD-poct (STL) Specimen Type: BLOOD Comment: Test Performed by: [id number] Meter #: [id number] Ordering Provider: SILVIA REDDY Report Released Date/Time: Aug 20, 2024 06:05 AM Reporting Lab: [facility] [address] Performing Lab: [facility] [address] GLUCOSE,BLOOD- poct (STL) 115 mg/dL H 72-Aug 19, 2024 04:23 PM [facility] GLUCOSE,BLOOD-poct (STL) Specimen Type: BLOOD Comment: Test Performed by: [id number] Meter #: [id number] Ordering Provider: SILVIA REDDY Report Released Date/Time: Aug 19, 2024 05:54 PM Reporting Lab: [facility] [address] Performing Lab: [facility] [address] GLUCOSE,BLOOD- poct (STL) 137 mg/dL H 72-99 Aug 19, 2024 11:28 AM [facility] GLUCOSE,BLOOD-poct (STL) Specimen Type: BLOOD Comment: Test Performed by: [id number] Meter #: [id number] Ordering Provider: SILVIA REDDY Report Released Date/Time: Aug 19, 2024 11:51 AM Reporting Lab: [facility] [address] Performing Lab: [facility] [address] GLUCOSE,BLOOD- poct (STL) 190 mg/dL H 72-99 Aug 19, 2024 05:21 AM [facility] GLUCOSE,BLOOD-poct (STL) Specimen Type: BLOOD Comment: Test Performed by: [id number] Meter #: [id number] Ordering Provider: SILVIA REDDY Report Released Date/Time: Aug 19, 2024 05:56 AM Reporting Lab: [facility] [address] Performing Lab: [facility] [address] GLUCOSE,BLOOD- poct (STL) 130 mg/dL H Aug 18, 2024 04:49 PM [facility] GLUCOSE,BLOOD-poct (STL) Specimen Type: BLOOD Comment: Test Performed by: [id number] Meter #: [id number] Ordering Provider: SILVIA REDDY Report Released Date/Time: Aug 18, 2024 05:01 PM Reporting Lab: [facility] [address] Performing Lab: [facility] [address] GLUCOSE,BLOOD- poct (STL) 129 mg/dL H Aug 18, 2024 11:23 AM [facility] GLUCOSE,BLOOD-poct (STL) Specimen Type: BLOOD Comment: Test Performed by: [id number] Meter #: [id number] Ordering Provider: ISLVIA REDDY Report Released Date/Time: Aug 18, 2024 11:41 AM Reporting Lab: [facility] [address] Performing Lab: [facility] [address] GLUCOSE,BLOOD- poct (STL) 180 mg/dL H Aug 18, 2024 05:08 AM [facility] GLUCOSE,BLOOD-poct (STL) Specimen Type: BLOOD Comment: Test Performed by: [id number] Meter #: [id number] Ordering Provider: SILVIA REDDY Report Released Date/Time: Aug 18, 2024 05:31 AM Reporting Lab: [facility] [place] [address] Performing Lab: [facility] [address] GLUCOSE,BLOOD- poct (STL) 127 mg/dL H -Aug 17, 2024 07:32 PM [facility] GLUCOSE,BLOOD-poct (STL) Specimen Type: BLOOD Comment: Test Performed by: [id number] Meter #: [id number] Ordering Provider: SILVIA REDDY Report Released Date/Time: Aug 17, 2024 07:59 PM Reporting Lab: [facility] [place] [address] Performing Lab: [facility] [place] [address] GLUCOSE,BLOOD- poct (STL) 154 mg/dL H -Aug 17, 2024 04:24 PM [facility] GLUCOSE,BLOOD-poct (STL) Specimen Type: BLOOD Comment: Test Performed by: [id number] Meter #: [id number] Ordering Provider: SILVIA REDDY Report Released Date/Time: Aug 17, 2024 04:35 PM Reporting Lab: [facility] [place] [address] Performing Lab: [facility] [place] [address] GLUCOSE,BLOOD- poct (STL) 178 mg/dL H -Aug 17, 2024 05:09 AM [facility] GLUCOSE,BLOOD-poct (STL) Specimen Type: BLOOD Comment: Test Performed by: [id number] Meter #: [id number] Ordering Provider: SILVIA REDDY Report Released Date/Time: Aug 17, 2024 05:54 AM Reporting Lab: [facility] [address] Performing Lab: [facility] [address] GLUCOSE,BLOOD- poct (STL) 124 mg/dL H 72-Aug 16, 2024 07:40 PM [facility] GLUCOSE,BLOOD-poct (STL) Specimen Type: BLOOD Comment: Test Performed by: [id number] Meter #: [id number] Ordering Provider: SILVIA REDDY Report Released Date/Time: Aug 16, 2024 08:28 PM Reporting Lab: [facility] [address] Performing Lab: [facility] [address] GLUCOSE,BLOOD- poct (STL) 144 mg/dL H -Aug 16, 2024 04:19 PM [facility] GLUCOSE,BLOOD-poct (STL) Specimen Type: BLOOD Comment: Test Performed by: [id number] Meter #: [id number] Ordering Provider: SILVIA REDDY Report Released Date/Time: Aug 16, 2024 04:45 PM Reporting Lab: [facility] [address] Performing Lab: [facility] [address] GLUCOSE,BLOOD- poct (STL) 138 mg/dL H 72-Aug 16, 2024 11:52 AM [facility] GLUCOSE,BLOOD-poct (STL) Specimen Type: BLOOD Comment: Test Performed by: [id number] Meter #: [id number] Ordering Provider: SILVIA REDDY Report Released Date/Time: Aug 16, 2024 12:04 PM Reporting Lab: [facility] [address] Performing Lab: [facility] [address] GLUCOSE,BLOOD- poct (STL) 135 mg/dL H 72-99 Aug 16, 2024 05:24 AM [facility] GLUCOSE,BLOOD-poct (STL) Specimen Type: BLOOD Comment: Test Performed by: [id number] Meter #: [id number] Ordering Provider: SILVIA REDDY Report Released Date/Time: Aug 16, 2024 05:38 AM Reporting Lab: [facility] [address] Performing Lab: [facility] [address] GLUCOSE,BLOOD- poct (STL) 151 mg/dL H Aug 15, 2024 07:31 PM [facility] GLUCOSE,BLOOD-poct (STL) Specimen Type: BLOOD Comment: Test Performed by: [id number] Meter #: [id number] Ordering Provider: SILVIA REDDY Report Released Date/Time: Aug 15, 2024 08:07 PM Reporting Lab: [facility] [address] Performing Lab: [facility] [address] GLUCOSE,BLOOD- poct (STL) 173 mg/dL H Aug 15, 2024 04:18 PM [facility] GLUCOSE,BLOOD-poct (STL) Specimen Type: BLOOD Comment: Test Performed by: [id number] Meter #: [id number] Ordering Provider: SILVIA REDDY Report Released Date/Time: Aug 15, 2024 04:59 PM Reporting Lab: [facility] [address] Performing Lab: [facility] [address] GLUCOSE,BLOOD- poct (STL) 136 mg/dL H Aug 15, 2024 04:16 PM [facility] GLUCOSE,BLOOD-poct (STL) Specimen Type: BLOOD Comment: Test Performed by: [id number] Meter #: [id number] Ordering Provider: SILVIA REDDY Report Released Date/Time: Aug 15, 2024 04:59 PM Reporting Lab: [facility] [place] [address] Performing Lab: [facility] [address] GLUCOSE,BLOOD- poct (STL) 194 mg/dL H 72-Aug 15, 2024 11:39 AM [facility] GLUCOSE,BLOOD-poct (STL) Specimen Type: BLOOD Comment: Test Performed by: [id number] Meter #: [id number] Ordering Provider: SILVIA REDDY Report Released Date/Time: Aug 15, 2024 12:00 PM Reporting Lab: [facility] [place] [address] Performing Lab: [facility] [place] [address] GLUCOSE,BLOOD- poct (STL) 127 mg/dL H -Aug 15, 2024 05:07 AM [facility] GLUCOSE,BLOOD-poct (STL) Specimen Type: BLOOD Comment: Test Performed by: [id number] Meter #: [id number] Ordering Provider: SILVIA REDDY Report Released Date/Time: Aug 15, 2024 06:14 AM Reporting Lab: [facility] [place] [address] Performing Lab: [facility] [place] [address] GLUCOSE,BLOOD- poct (STL) 151 mg/dL H -Aug 14, 2024 04:22 PM [facility] GLUCOSE,BLOOD-poct (STL) Specimen Type: BLOOD Comment: Test Performed by: [id number] Meter #: [id number] Ordering Provider: SILVIA REDDY Report Released Date/Time: Aug 14, 2024 04:52 PM Reporting Lab: [facility] [address] Performing Lab: [facility] [address] GLUCOSE,BLOOD- poct (STL) 129 mg/dL H 72-99 Aug 14, 2024 11:21 AM [facility] GLUCOSE,BLOOD-poct (STL) Specimen Type: BLOOD Comment: Test Performed by: [id number] Meter #: [id number] Ordering Provider: SILVIA REDDY Report Released Date/Time: Aug 14, 2024 11:37 AM Reporting Lab: [facility] [address] Performing Lab: [facility] [address] GLUCOSE,BLOOD- poct (STL) 135 mg/dL H 72-Aug 14, 2024 06:59 AM [facility] QUANTIFERON-TB,4 TUBE Specimen Type: BLOOD Comment: [...] For additional information, please refer to http://education. [employer]/faq/RSS646 (This link is being provided for information/ educational purposes only.) Test Performed by [employer], [employer] [facility], [address] [place] [address] Tommie Garcia M.D., Ph.D., Director of Laboratories , [facility] [id number] Ordering Provider: SILVIA REDDY Report Released Date/Time: Aug 11, 2024 03:58 PM Reporting Lab: [facility] [address] [facility] [address] Performing Lab: [facility] [id number] [place] [address] .NIL - QUANTIFERON 0.04 [IU]/mL .MITOGEN-NIL 0.39 [IU]/mL .QUANTIFERON INDETERMINATE NEGATIVE .TB1-NIL <0.00 [IU]/mL .TB2-NIL <0.00 [IU]/mL Aug 14, 2024 06:59 AM [facility] B12 Specimen Type: SERUM No comment entered. Ordering Provider: SILVIA REDDY Report Released Date/Time: Aug 11, 2024 03:58 PM Reporting Lab: [facility] [place] [phone] Performing Lab: [facility] [address] B12 757 pg/mL 213-816 Aug 14, 2024 06:59 AM [facility] MAGNESIUM Specimen Type: PLASMA Comment: No hemolysis noted. Ordering Provider: SILVIA REDDY Report Released Date/Time: Aug 11, 2024 03:58 PM Reporting Lab: [facility] [address] Performing Lab: [facility] [address] MAGNESIUM 1.9 mg/dL 1.6-2.6 Aug 14, 2024 06:59 AM [facility] FOLATE (STL-MA) Specimen Type: SERUM No comment entered. Ordering Provider: SILVIA REDDY Report Released Date/Time: Aug 11, 2024 03:58 PM Reporting Lab: [facility] [address] Performing Lab: [facility] [address] FOLATE (STL-MA) 6.8 ng/mL L 7-20 Aug 14, 2024 06:59 AM [facility] VITAMIN D, 25-HYDROXY Specimen Type: SERUM No comment entered. Ordering Provider: SILVIA REDDY Report Released Date/Time: Aug 11, 2024 03:58 PM Reporting Lab: [facility] [address] Performing Lab: [facility] [address] VITAMIN D, 25-HYDROXY 8.9 ng/mL L 30-96 Aug 14, 2024 06:59 AM [facility] COMPREHENSIVE METABOLIC PANEL Specimen Type: PLASMA Comment: No hemolysis noted. Ordering Provider: SILVIA REDDY Report Released Date/Time: Aug 11, 2024 03:58 PM Reporting Lab: [facility] [address] Performing Lab: [facility] [address] CREATININE 0.75 mg/dL 0.70-1.30 UREA NITROGEN 13.6 [...] 95.88 >60 Aug 14, 2024 06:59 AM [facility] CBC Specimen Type: BLOOD No comment entered. Ordering Provider: SILVIA REDDY Report Released Date/Time: Aug 11, 2024 03:58 PM Reporting Lab: [facility] [address] Performing Lab: [facility] [address] WBC 4.1 10*3/uL 3.6-11.2 RBC 3.20 10*6/uL [...] 10*3/uL 0.00-0.20 Aug 14, 2024 05:08 AM [facility] GLUCOSE,BLOOD-poct (STL) Specimen Type: BLOOD Comment: Test Performed by: [id number] Meter #: [id number] Ordering Provider: SILVIA REDDY Report Released Date/Time: Aug 14, 2024 05:52 AM Reporting Lab: [facility] [address] Performing Lab: [facility] [address] GLUCOSE,BLOOD- poct (STL) 135 mg/dL H 72-99 Aug 13, 2024 04:27 PM [facility] GLUCOSE,BLOOD-poct (STL) Specimen Type: BLOOD Comment: Test Performed by: [id number] Meter #: [id number] Ordering Provider: SILVIA REDDY Report Released Date/Time: Aug 13, 2024 04:41 PM Reporting Lab: [facility] [address] Performing Lab: [facility] [address] GLUCOSE,BLOOD- poct (STL) 181 mg/dL H -Aug 13, 2024 11:33 AM [facility] GLUCOSE,BLOOD-poct (STL) Specimen Type: BLOOD Comment: Test Performed by: [id number] Meter #: [id number] Ordering Provider: SILVIA REDDY Report Released Date/Time: Aug 13, 2024 03:55 PM Reporting Lab: [facility] [address] Performing Lab: [facility] [place] [address] GLUCOSE,BLOOD- poct (STL) 140 mg/dL H Aug 13, 2024 05:54 AM [facility] GLUCOSE,BLOOD-poct (STL) Specimen Type: BLOOD Comment: Test Performed by: [id number] Meter #: [id number] Ordering Provider: SILVIA REDDY Report Released Date/Time: Aug 13, 2024 06:20 AM Reporting Lab: [facility] [address] Performing Lab: [facility] [address] GLUCOSE,BLOOD- poct (STL) 112 mg/dL H Aug 12, 2024 04:35 PM [facility] GLUCOSE,BLOOD-poct (STL) Specimen Type: BLOOD Comment: Test Performed by: [id number] Meter #: [id number] Ordering Provider: SILVIA REDDY Report Released Date/Time: Aug 12, 2024 04:47 PM Reporting Lab: [facility] [address] Performing Lab: [facility] [address] GLUCOSE,BLOOD- poct (STL) 128 mg/dL H 72-99 Aug 12, 2024 11:26 AM [facility] GLUCOSE,BLOOD-poct (STL) Specimen Type: BLOOD Comment: Test Performed by: [id number] Meter #: [id number] Ordering Provider: SILVIA REDDY Report Released Date/Time: Aug 12, 2024 11:45 AM Reporting Lab: [facility] [address] Performing Lab: [facility] [place] [address] GLUCOSE,BLOOD- poct (STL) 188 mg/dL H -Aug 12, 2024 06:13 AM [facility] GLUCOSE,BLOOD-poct (STL) Specimen Type: BLOOD Comment: Test Performed by: [id number] Meter #: [id number] Ordering Provider: SILVIA REDDY Report Released Date/Time: Aug 12, 2024 06:25 AM Reporting Lab: [facility] [address] Performing Lab: [facility] [address] GLUCOSE,BLOOD- poct (STL) 116 mg/dL H 72-99 Aug 11, 2024 04:10 PM [facility] GLUCOSE,BLOOD-poct (STL) Specimen Type: BLOOD Comment: Test Performed by: [id number] Meter #: [id number] Ordering Provider: SILVIA REDDY Report Released Date/Time: Aug 11, 2024 04:27 PM Reporting Lab: [facility] [place] [address] Performing Lab: [facility] [place] [address] GLUCOSE,BLOOD- poct (STL) 184 mg/dL H 72-99 Aug 11, 2024 01:44 PM [facility] MRSA SURVL NARES DNA Specimen Type: [...] Aug 11, 2024 02:03 PM Reporting Lab: [address] [address] Performing Lab: [address] [address] MRSA SURVL NARES DNA Negative Negative Vital Signs: All taken on the encounter date This section contains inpatient and outpatient Vital Signs collected on the date of the Encounter. Date/Time Temperature Pulse Blood Pressure Respiratory Rate SP02 Pain Height Weight Body Mass Index Source Aug 20, 2024 07:29 PM 98.6 73 130/72 18 96 [facility] Aug 20, 2024 03:56 PM 0 [facility] Aug 20, 2024 10:00 AM 97.6 74 126/77 18 97 0 215.2 31 [facility] Advance Directives: [...] ADVANCE DIRECTIVE DISCUSSION ERICK BARDALES [facility]
--- OUTSIDE RECORDS SUMMARY | 2024-11-17 04:19 | XMS_ITS ---
[place] DAILY HOSPITALIZATION DATA [facility] Encounter Summary Created on: November 16, 2024 CHET WALKER : 1950 Sex: Male Author Name [facility] Organization [facility] [place] Address [address] [place] [address] Care Team Providers Care Academic Success Coordinator Name Role Phone MANUEL BAIRD Primary [...] PART A Apr 08, 2017 PART A [id number] ASHLEY WALKER PATIENT Selected Encounter This section includes the information on record at [place] for the Encounter. Date/Time Encounter Type Encounter Description Reason Pro vider Source Aug 19, 2024 11:39 PM Inpatient Visit DAILY HOSPITALIZATION DATA JOSSELINE [...] appointments. The data comes from all [facility]. Appointment Date/Time Appointment Type Appointme nt Facility Name Aug 24, 2024 10:00 AM AMBULATORY - MEDICINE [facility] Aug 24, 2024 10:30 AM AMBULATORY - MEDICINE [facility] Aug 30, 2024 09:30 AM AMBULATORY MEDICINE [facility] Aug 31, 2024 01:00 PM AMBULATORY - SUR[facility]ERY [facility] Sep 21, 2024 01:30 PM AMBULATORY - MEDICINE [facility] Sep 22, 2024 11:00 AM AMBULATORY - MEDICINE [facility] Sep 29, 2024 12:30 PM AMBULATORY - MEDICINE [facility] Oct 02, 2024 09:30 AM AMBULATORY - MEDICINE [facility] Nov 20, 2024 10:30 AM AMBULATORY - SUR[facility]ERY [facility] Nov 21, 2024 10:00 AM AMBULATORY - NONE [facility] Dec 11, 2024 10:30 [...] theEncounter. The data comes from all [facility]. Test Date/Time Test Type Test Details Facility Name Aug 02, 2024 12:00 AM Laboratory - Chemistry Order COMPREHENSIVE METABOLIC PANEL GREEN LI/HEP BLD/PLAS PLASMA SP [facility] Aug 02, 2024 12:00 AM Laboratory - Chemistry Order CBC BLOOD STAT SP [facility] Aug 17, 2024 03:47 PM Consult Order [facility] Cons Bedside [facility] [...] Lab: [facility] [address] Performing Lab: [facility] [address] MAGNESIUM 1.8 mg/dL 1.6-2.6 Aug 23, 2024 08:21 AM [facility] CBC Specimen Type: BLOOD No comment entered. Ordering Provider: SILVIA REDDY Report Released Date/Time: Aug 22, 2024 11:19 AM Reporting Lab: [facility] [address] Performing Lab: [facility] [address] WBC 4.0 10*3/uL 3.6-11.2 RBC 3.65 10*6/uL [...] Specimen Type: BLOOD Comment: Test Performed by: [id number] Meter #: [id number] Ordering Provider: SILVIA REDDY Report Released Date/Time: Aug 23, 2024 05:23 AM Reporting Lab: [facility] [address] Performing Lab: [facility] [facility] [address] GLUCOSE,BLOOD- poct (STL) 99 mg/dL 72-99 Aug 23, 2024 02:45 AM [facility] OCCULT BLOOD FIT X1 SCREEN Specimen Type: FECES No comment entered. Ordering Provider: SILVIA REDDY Report Released Date/Time: Aug 22, 2024 11:23 AM Reporting Lab: [address] [address] Performing Lab: [address] [address] OCCULT BLOOD (FIT) #1 OF 1 Negative Negative Aug 22, 2024 07:30 PM [facility] OCCULT BLOOD FIT X1 SCREEN Specimen Type: FECES No comment entered. Ordering Provider: SILVIA REDDY Report Released Date/Time: Aug 22, 2024 11:23 AM Reporting Lab: [address] [address] Performing Lab: [address] [address] OCCULT BLOOD (FIT) #1 OF 1 Negative Negative Aug 22, 2024 06:15 PM [facility] OCCULT BLOOD FIT X1 SCREEN Specimen Type: FECES No comment entered. Ordering Provider: SILVIA REDDY Report Released Date/Time: Aug 22, 2024 11:23 AM Reporting Lab: [address] [address] Performing Lab: [place] [address] [facility] [address] OCCULT BLOOD (FIT) #1 OF 1 Negative Negative Aug 22, 2024 04:24 PM [facility] GLUCOSE,BLOOD-poct (STL) Specimen Type: BLOOD Comment: Test Performed by: [id number] Meter #: [id number] Ordering Provider: SILVIA REDDY Report Released Date/Time: Aug 22, 2024 04:36 PM Reporting Lab: [facility] [address] Performing Lab: [facility] [address] [facility] [address] GLUCOSE,BLOOD- poct (STL) 176 mg/dL H -Aug 22, 2024 04:23 PM [facility] GLUCOSE,BLOOD-poct (STL) Specimen Type: BLOOD Comment: Test Performed by: [id number] Meter #: [id number] Ordering Provider: SILVIA REDDY Report Released Date/Time: Aug 22, 2024 04:36 PM Reporting Lab: [facility] [address] Performing Lab: [facility] [address] [facility] [address] GLUCOSE,BLOOD- poct (STL) 221 mg/dL H 72-Aug 22, 2024 11:15 AM [facility] GLUCOSE,BLOOD-poct (STL) Specimen Type: BLOOD Comment: Test Performed by: [id number] Meter #: [id number] Ordering Provider: SILVIA REDDY Report Released Date/Time: Aug 22, 2024 11:27 AM Reporting Lab: [facility] [address] Performing Lab: [facility] [facility] [address] GLUCOSE,BLOOD- poct (STL) 140 mg/dL H 72-Aug 22, 2024 08:[address] [facility] FERRITIN Specimen Type: SERUM No comment entered. Ordering Provider: JUDIT PERKINS Report Released Date/Time: Aug 18, 2024 11:01 AM Reporting Lab: [facility] [address] [facility] [address] Performing Lab: [facility] [address] [place] [address] FERRITIN 79.50 ng/mL 22-275 Aug 22, 2024 08:03 AM [facility] IRON/TIBC PROFILE Specimen Type: SERUM No comment entered. Ordering Provider: JUDIT PERKINS Report Released Date/Time: Aug 18, 2024 11:01 AM Reporting Lab: [address] [address] Performing Lab: [address] [address] TIBC 283 ug/dL 250-450 TRANSFERRIN 226 mg/dL 163-344 IRON SATURATION 7 L 20-50 IRON 19 ug/dL L 65-175 Aug 22, 2024 08:03 AM [facility] B12 Specimen Type: SERUM No comment entered. Ordering Provider: JUDIT PERKINS Report Released Date/Time: Aug 18, 2024 11:01 AM Reporting Lab: [facility] [facility] [address] Performing Lab: [facility] [address] [facility] [address] B12 631 pg/mL 213-816 Aug 22, 2024 08:03 AM [facility] COMPREHENSIVE METABOLIC PANEL Specimen Type: PLASMA Comment: No hemolysis noted. Ordering Provider: SILVIA REDDY Report Released Date/Time: Aug 17, 2024 01:18 PM Reporting Lab: [facility] [address] [facility] [address] Performing Lab: [address] [address] CREATININE 0.80 mg/dL 0.7-1.3 UREA NITROGEN 9.7 [...] 94.0 >60 Aug 22, 2024 08:03 AM [facility] CBC Specimen Type: BLOOD No comment entered. Ordering Provider: SILVIA REDDY Report Released Date/Time: Aug 17, 2024 01:18 PM Reporting Lab: [facility] [facility] [address] Performing Lab: [facility] [facility] [address] WBC 3.5 10*3/uL L 3.6-11.2 RBC 3.23 [...] Specimen Type: BLOOD Comment: Test Performed by: [id number] Meter #: [id number] Ordering Provider: SILVIA REDDY Report Released Date/Time: Aug 22, 2024 06:17 AM Reporting Lab: [facility] [address] [facility] [address] Performing Lab: [facility] [address] [facility] [address] GLUCOSE,BLOOD- poct (STL) 170 mg/dL H 72-Aug 21, 2024 04:32 PM [facility] GLUCOSE,BLOOD-poct (STL) Specimen Type: BLOOD Comment: Test Performed by: [id number] Meter #: [id number] Ordering Provider: SILVIA REDDY Report Released Date/Time: Aug 21, 2024 04:49 PM Reporting Lab: [facility] [facility] [address] Performing Lab: [facility] [address] [facility] [address] GLUCOSE,BLOOD- poct (STL) 169 mg/dL H -Aug 21, 2024 11:53 AM [facility] GLUCOSE,BLOOD-poct (STL) Specimen Type: BLOOD Comment: Test Performed by: [id number] Meter #: [id number] Ordering Provider: SILVIA REDDY Report Released Date/Time: Aug 21, 2024 12:11 PM Reporting Lab: [facility] [address] [facility] [address] Performing Lab: [facility] [address] [facility] [address] GLUCOSE,BLOOD- poct (STL) 149 mg/dL H 72-Aug 21, 2024 05:10 AM [facility] GLUCOSE,BLOOD-poct (STL) Specimen Type: BLOOD Comment: Test Performed by: [id number] Meter #: [id number] Ordering Provider: SILVIA REDDY Report Released Date/Time: Aug 21, 2024 05:27 AM Reporting Lab: [facility] [address] [facility] [address] Performing Lab: [facility] [address] [facility] [address] GLUCOSE,BLOOD- poct (STL) 118 mg/dL H 72-Aug 20, 2024 04:38 PM [facility] GLUCOSE,BLOOD-poct (STL) Specimen Type: BLOOD Comment: Test Performed by: [id number] Meter #: [id number] Ordering Provider: SILVIA REDDY Report Released Date/Time: Aug 21, 2024 01:55 AM Reporting Lab: [facility] [address] [facility] [address] Performing Lab: [facility] [address] [place] [address] GLUCOSE,BLOOD- poct (STL) 169 mg/dL H -Aug 20, 2024 04:36 PM [facility] GLUCOSE,BLOOD-poct (STL) Specimen Type: BLOOD Comment: Test Performed by: [id number] Meter #: [id number] Ordering Provider: SILVIA REDDY Report Released Date/Time: Aug 21, 2024 01:55 AM Reporting Lab: [facility] [address] [facility] [address] Performing Lab: [facility] [address] [facility] [address] GLUCOSE,BLOOD- poct (STL) 395 mg/dL H 72-Aug 20, 2024 11:45 AM [facility] GLUCOSE,BLOOD-poct (STL) Specimen Type: BLOOD Comment: Test Performed by: [id number] Meter #: [id number] Ordering Provider: SILVIA REDDY Report Released Date/Time: Aug 20, 2024 11:56 AM Reporting Lab: [facility] [address] [place] [address] Performing Lab: [facility] [address] [facility] [address] GLUCOSE,BLOOD- poct (STL) 169 mg/dL H -Aug 20, 2024 05:06 AM [facility] GLUCOSE,BLOOD-poct (STL) Specimen Type: BLOOD Comment: Test Performed by: [id number] Meter #: [id number] Ordering Provider: SILVIA REDDY Report Released Date/Time: Aug 20, 2024 06:05 AM Reporting Lab: [facility] [facility] [address] Performing Lab: [facility] [address] [facility] [address] GLUCOSE,BLOOD- poct (STL) 115 mg/dL H -Aug 19, 2024 04:23 PM [facility] GLUCOSE,BLOOD-poct (STL) Specimen Type: BLOOD Comment: Test Performed by: [id number] Meter #: [id number] Ordering Provider: SILVIA REDDY Report Released Date/Time: Aug 19, 2024 05:54 PM Reporting Lab: [facility] [facility] [address] Performing Lab: [facility] [address] [facility] [address] GLUCOSE,BLOOD- poct (STL) 137 mg/dL H -Aug 19, 2024 11:28 AM [facility] GLUCOSE,BLOOD-poct (STL) Specimen Type: BLOOD Comment: Test Performed by: [id number] Meter #: [id number] Ordering Provider: SILVIA REDDY Report Released Date/Time: Aug 19, 2024 11:51 AM Reporting Lab: [facility] [facility] [address] Performing Lab: [facility] [address] [facility] [address] GLUCOSE,BLOOD- poct (STL) 190 mg/dL H Aug 19, 2024 05:21 AM [facility] GLUCOSE,BLOOD-poct (STL) Specimen Type: BLOOD Comment: Test Performed by: [id number] Meter #: [id number] Ordering Provider: SILVIA REDDY Report Released Date/Time: Aug 19, 2024 05:56 AM Reporting Lab: [facility] [address] [facility] [address] Performing Lab: [facility] [address] [facility] [address] GLUCOSE,BLOOD- poct (STL) 130 mg/dL H Aug 18, 2024 04:49 PM [facility] GLUCOSE,BLOOD-poct (STL) Specimen Type: BLOOD Comment: Test Performed by: [id number] Meter #: [id number] Ordering Provider: SILVIA REDDY Report Released Date/Time: Aug 18, 2024 05:01 PM Reporting Lab: [facility] [address] [facility] [address] Performing Lab: [facility] [address] [facility] [address] GLUCOSE,BLOOD- poct (STL) 129 mg/dL H Aug 18, 2024 11:23 AM [facility] GLUCOSE,BLOOD-poct (STL) Specimen Type: BLOOD Comment: Test Performed by: [id number] Meter #: [id number] Ordering Provider: SILVIA REDDY Report Released Date/Time: Aug 18, 2024 11:41 AM Reporting Lab: [facility] [address] [facility] [address] Performing Lab: [facility] [address] [facility] [address] GLUCOSE,BLOOD- poct (STL) 180 mg/dL H Aug 18, 2024 05:08 AM [facility] GLUCOSE,BLOOD-poct (STL) Specimen Type: BLOOD Comment: Test Performed by: [id number] Meter #: [id number] Ordering Provider: SILVIA REDDY Report Released Date/Time: Aug 18, 2024 05:31 AM Reporting Lab: [facility] [address] [facility] [address] Performing Lab: [facility] [address] [facility] [address] GLUCOSE,BLOOD- poct (STL) 127 mg/dL H -Aug 17, 2024 07:32 PM [facility] GLUCOSE,BLOOD-poct (STL) Specimen Type: BLOOD Comment: Test Performed by: [id number] Meter #: [id number] Ordering Provider: SILVIA REDDY Report Released Date/Time: Aug 17, 2024 07:59 PM Reporting Lab: [facility] [address] [facility] [address] Performing Lab: [facility] [address] [facility] [address] GLUCOSE,BLOOD- poct (STL) 154 mg/dL H -Aug 17, 2024 04:24 PM [facility] GLUCOSE,BLOOD-poct (STL) Specimen Type: BLOOD Comment: Test Performed by: [id number] Meter #: [id number] Ordering Provider: SILVIA REDDY Report Released Date/Time: Aug 17, 2024 04:35 PM Reporting Lab: [facility] [address] [facility] [address] Performing Lab: [facility] [facility] [address] GLUCOSE,BLOOD- poct (STL) 178 mg/dL H -Aug 17, 2024 05:09 AM [facility] GLUCOSE,BLOOD-poct (STL) Specimen Type: BLOOD Comment: Test Performed by: [id number] Meter #: [id number] Ordering Provider: SILVIA REDDY Report Released Date/Time: Aug 17, 2024 05:54 AM Reporting Lab: [facility] [address] [place] [address] Performing Lab: [facility] [address] [facility] [address] GLUCOSE,BLOOD- poct (STL) 124 mg/dL H -Aug 16, 2024 07:40 PM [facility] GLUCOSE,BLOOD-poct (STL) Specimen Type: BLOOD Comment: Test Performed by: [id number] Meter #: [id number] Ordering Provider: SILVIA REDDY Report Released Date/Time: Aug 16, 2024 08:28 PM Reporting Lab: [facility] [facility] [address] Performing Lab: [facility] [address] [facility] [address] GLUCOSE,BLOOD- poct (STL) 144 mg/dL H Aug 16, 2024 04:19 PM [facility] GLUCOSE,BLOOD-poct (STL) Specimen Type: BLOOD Comment: Test Performed by: [id number] Meter #: [id number] Ordering Provider: SILVIA REDDY Report Released Date/Time: Aug 16, 2024 04:45 PM Reporting Lab: [facility] [address] [facility] [address] Performing Lab: [facility] [address] [facility] [address] GLUCOSE,BLOOD- poct (STL) 138 mg/dL H Aug 16, 2024 11:52 AM [facility] GLUCOSE,BLOOD-poct (STL) Specimen Type: BLOOD Comment: Test Performed by: [id number] Meter #: [id number] Ordering Provider: SILVIA REDDY Report Released Date/Time: Aug 16, 2024 12:04 PM Reporting Lab: [facility] [facility] [address] Performing Lab: [facility] [facility] [address] GLUCOSE,BLOOD- poct (STL) 135 mg/dL H Aug 16, 2024 05:24 AM [facility] GLUCOSE,BLOOD-poct (STL) Specimen Type: BLOOD Comment: Test Performed by: [id number] Meter #: [id number] Ordering Provider: SILVIA REDDY Report Released Date/Time: Aug 16, 2024 05:38 AM Reporting Lab: [facility] [address] [facility] [address] Performing Lab: [facility] [address] [facility] [address] GLUCOSE,BLOOD- poct (STL) 151 mg/dL H Aug 15, 2024 07:31 PM [facility] GLUCOSE,BLOOD-poct (STL) Specimen Type: BLOOD Comment: Test Performed by: [id number] Meter #: [id number] Ordering Provider: SILVIA REDDY Report Released Date/Time: Aug 15, 2024 08:07 PM Reporting Lab: [facility] [address] [facility] [address] Performing Lab: [facility] [address] [facility] [address] GLUCOSE,BLOOD- poct (STL) 173 mg/dL H Aug 15, 2024 04:18 PM [facility] GLUCOSE,BLOOD-poct (STL) Specimen Type: BLOOD Comment: Test Performed by: [id number] Meter #: [id number] Ordering Provider: SILVIA REDDY Report Released Date/Time: Aug 15, 2024 04:59 PM Reporting Lab: [facility] [address] [facility] [address] Performing Lab: [facility] [address] [facility] [address] GLUCOSE,BLOOD- poct (STL) 136 mg/dL H Aug 15, 2024 04:16 PM [facility] GLUCOSE,BLOOD-poct (STL) Specimen Type: BLOOD Comment: Test Performed by: [id number] Meter #: [id number] Ordering Provider: SILVIA REDDY Report Released Date/Time: Aug 15, 2024 04:59 PM Reporting Lab: [facility] [address] [facility] [address] Performing Lab: [facility] [address] [facility] [address] GLUCOSE,BLOOD- poct (STL) 194 mg/dL H -Aug 15, 2024 11:39 AM [facility] GLUCOSE,BLOOD-poct (STL) Specimen Type: BLOOD Comment: Test Performed by: [id number] Meter #: [id number] Ordering Provider: SILVIA REDDY Report Released Date/Time: Aug 15, 2024 12:00 PM Reporting Lab: [facility] [address] [facility] [address] Performing Lab: [facility] [address] GLUCOSE,BLOOD- poct (STL) 127 mg/dL H -Aug 15, 2024 05:07 AM [facility] GLUCOSE,BLOOD-poct (STL) Specimen Type: BLOOD Comment: Test Performed by: [id number] Meter #: [id number] Ordering Provider: SILVIA REDDY Report Released Date/Time: Aug 15, 2024 06:14 AM Reporting Lab: [facility] [address] [facility] [address] Performing Lab: [facility] [address] [facility] [address] GLUCOSE,BLOOD- poct (STL) 151 mg/dL H -Aug 14, 2024 04:22 PM [facility] GLUCOSE,BLOOD-poct (STL) Specimen Type: BLOOD Comment: Test Performed by: [id number] Meter #: [id number] Ordering Provider: SILVIA REDDY Report Released Date/Time: Aug 14, 2024 04:52 PM Reporting Lab: [facility] [address] [place] [address] Performing Lab: [facility] [facility] [address] GLUCOSE,BLOOD- poct (STL) 129 mg/dL H 72-99 Aug 14, 2024 11:21 AM [facility] GLUCOSE,BLOOD-poct (STL) Specimen Type: BLOOD Comment: Test Performed by: [id number] Meter #: [id number] Ordering Provider: SILVIA REDDY Report Released Date/Time: Aug 14, 2024 11:37 AM Reporting Lab: [facility] [facility] [address] Performing Lab: [facility] [facility] [address] GLUCOSE,BLOOD- poct (STL) 135 mg/dL H 72-99 [...] For additional information, please refer to http://education. [employer]/faq/ATY903 (This link is being provided for information/ educational purposes only.) Test Performed by [employer], [facility], [address] [place] [address] Tommie Garcia M.D., Ph.D., Director of Laboratories , [facility] [id number] Ordering Provider: SILVIA REDDY Report Released Date/Time: Aug 11, 2024 03:58 PM Reporting Lab: [facility] [address] [facility] [address] Performing Lab: [facility] [id number] [place] [id number] .NIL - QUANTIFERON 0.04 [IU]/mL .MITOGEN-NIL 0.39 [IU]/mL .QUANTIFERON INDETERMINATE NEGATIVE .TB1-NIL <0.00 [IU]/mL .TB2-NIL <0.00 [IU]/mL Aug 14, 2024 06:59 AM [facility] B12 Specimen Type: SERUM No comment entered. Ordering Provider: SILVIA REDDY Report Released Date/Time: Aug 11, 2024 03:58 PM Reporting Lab: [facility] [facility] [address] Performing Lab: [facility] [facility] [address] B12 757 pg/mL 213-816 Aug 14, 2024 06:59 AM [facility] MAGNESIUM Specimen Type: PLASMA Comment: No hemolysis noted. Ordering Provider: SILVIA REDDY Report Released Date/Time: Aug 11, 2024 03:58 PM Reporting Lab: [facility] [facility] [address] Performing Lab: [facility] [facility] [address] MAGNESIUM 1.9 mg/dL 1.6-2.6 Aug 14, 2024 06:59 AM [facility] FOLATE (STL-MA) Specimen Type: SERUM No comment entered. Ordering Provider: SILVIA REDDY Report Released Date/Time: Aug 11, 2024 03:58 PM Reporting Lab: [facility] [facility] [address] Performing Lab: [facility] [address] FOLATE (STL-MA) 6.8 ng/mL L 7-20 Aug 14, 2024 06:59 AM [facility] VITAMIN D, 25-HYDROXY Specimen Type: SERUM No comment entered. Ordering Provider: SILVIA REDDY Report Released Date/Time: Aug 11, 2024 03:58 PM Reporting Lab: [facility] [facility] [address] Performing Lab: [facility] [facility] [address] VITAMIN D, 25-HYDROXY 8.9 ng/mL L 30-96 Aug 14, 2024 06:59 AM [facility] COMPREHENSIVE METABOLIC PANEL Specimen Type: PLASMA Comment: No hemolysis noted. Ordering Provider: SILVIA REDDY Report Released Date/Time: Aug 11, 2024 03:58 PM Reporting Lab: [facility] [facility] [address] Performing Lab: [facility] [facility] [address] CREATININE 0.75 mg/dL 0.70-1.30 UREA NITROGEN 13.6 [...] Lab: [facility] [facility] [address] Performing Lab: [facility] [facility] [address] WBC 4.1 10*3/uL 3.6-11.2 RBC 3.20 10*6/uL [...] Specimen Type: BLOOD Comment: Test Performed by: [id number] Meter #: [id number] Ordering Provider: SILVIA REDDY Report Released Date/Time: Aug 14, 2024 05:52 AM Reporting Lab: [facility] [address] Performing Lab: [facility] [facility] [address] GLUCOSE,BLOOD- poct (STL) 135 mg/dL H 72-99 Aug 13, 2024 04:27 PM [facility] GLUCOSE,BLOOD-poct (STL) Specimen Type: BLOOD Comment: Test Performed by: [id number] Meter #: [id number] Ordering Provider: SILVIA REDDY Report Released Date/Time: Aug 13, 2024 04:41 PM Reporting Lab: [facility] [facility] [address] Performing Lab: [facility] [address] GLUCOSE,BLOOD- poct (STL) 181 mg/dL H -Aug 13, 2024 11:33 AM [facility] GLUCOSE,BLOOD-poct (STL) Specimen Type: BLOOD Comment: Test Performed by: [id number] Meter #: [id number] Ordering Provider: SILVIA REDDY Report Released Date/Time: Aug 13, 2024 03:55 PM Reporting Lab: [facility] [address] Performing Lab: [facility] [place] [id number] GLUCOSE,BLOOD- poct (STL) 140 mg/dL H Aug 13, 2024 05:54 AM [facility] GLUCOSE,BLOOD-poct (STL) Specimen Type: BLOOD Comment: Test Performed by: [id number] Meter #: [id number] Ordering Provider: SILVIA REDDY Report Released Date/Time: Aug 13, 2024 06:20 AM Reporting Lab: [facility] [id number] Performing Lab: [facility] [address] GLUCOSE,BLOOD- poct (STL) 112 mg/dL H Aug 12, 2024 04:35 PM [facility] GLUCOSE,BLOOD-poct (STL) Specimen Type: BLOOD Comment: Test Performed by: [id number] Meter #: [id number] Ordering Provider: SILVIA REDDY Report Released Date/Time: Aug 12, 2024 04:47 PM Reporting Lab: [facility] [facility] [address] Performing Lab: [facility] [address] [facility] [address] GLUCOSE,BLOOD- poct (STL) 128 mg/dL H 72-99 Aug 12, 2024 11:26 AM [facility] GLUCOSE,BLOOD-poct (STL) Specimen Type: BLOOD Comment: Test Performed by: [id number] Meter #: [id number] Ordering Provider: SILVIA REDDY Report Released Date/Time: Aug 12, 2024 11:45 AM Reporting Lab: [facility] [address] [facility] [address] Performing Lab: [facility] [address] [facility] [address] GLUCOSE,BLOOD- poct (STL) 188 mg/dL H 72-Aug 12, 2024 06:13 AM [facility] GLUCOSE,BLOOD-poct (STL) Specimen Type: BLOOD Comment: Test Performed by: [id number] Meter #: [id number] Ordering Provider: SILVIA REDDY Report Released Date/Time: Aug 12, 2024 06:25 AM Reporting Lab: [facility] [address] [facility] [address] Performing Lab: [facility] [address] [facility] [address] GLUCOSE,BLOOD- poct (STL) 116 mg/dL H 72-99 Aug 11, 2024 04:10 PM [facility] GLUCOSE,BLOOD-poct (STL) Specimen Type: BLOOD Comment: Test Performed by: [id number] Meter #: [id number] Ordering Provider: SILVIA REDDY Report Released Date/Time: Aug 11, 2024 04:27 PM Reporting Lab: [facility] [address] [place] [address] Performing Lab: [facility] [facility] [place] [address] GLUCOSE,BLOOD- poct (STL) 184 mg/dL H 72-99 Aug 11, 2024 01:44 PM [facility] MRSA SURVL NARES [...] Aug 11, 2024 02:03 PM Reporting Lab: [address] [address] Performing Lab: [address] [address] MRSA SURVL NARES DNA Negative Negative Vital Signs: All taken on the encounter date This section contains inpatient and outpatient Vital Signs collected on the date of the Encounter. Date/Time Temperature Pulse Blood Pressure Respiratory Rate SP02 Pain Height Weight Body Mass Index Source Aug 19, 2024 07:31 PM 98.1 89 174/79 18 97 [facility] Aug 19, 2024 06:27 PM 0 [facility] Aug 19, 2024 10:00 AM 97.8 72 130/74 18 96 [facility] Aug 19, 2024 09:16 AM [facility] Aug 19, 2024 05:26 AM 213.8 31 [facility] Advance [...]
--- OUTSIDE RECORDS SUMMARY | 2024-11-17 04:19 | XMS_ITS ---
[place] DAILY HOSPITALIZATION DATA [facility] Encounter Summary Created on: November 16, 2024 CHET WALKER : 1950 Sex: Male Author Name [facility] [place] [facility] [place] [place] Address [address] [place] [address] Care Team Providers Care Broke Handler Name Role Phone MANUEL BAIRD Primary Care [...] PART A Apr 08, 2017 PART A [id number] [phone] ASHLEY WALKER PATIENT Selected Encounter This section includes the information on record at [place] for the Encounter. Date/Time Encounter Type Encounter Description Reason Pro vider Source Aug 20, 2024 03:55 PM Inpatient Visit DAILY HOSPITALIZATION DATA [facility] Encounter Template Text not used by [place] [...] 2024 10:00 AM AMBULATORY - NONE [facility] Dec 11, 2024 10:30 AM AMBULATORY [...] 2024 03:47 PM Consult Order [facility] Cons Bedside [place] [...] AM [facility] CBC Specimen Type: BLOOD No comment entered. Ordering Provider: SILVIA REDDY Report Released Date/Time: Aug 22, 2024 11:19 AM Reporting Lab: [facility] [facility] [address] Performing Lab: [facility] [address] WBC 4.0 10*3/uL 3.6-11.2 RBC 3.65 10*6/uL [...] 0.00-0.20 Aug 23, 2024 08:21 AM [facility] MAGNESIUM Specimen Type: PLASMA No comment entered. Ordering Provider: SILVIA REDDY Report Released Date/Time: Aug 22, 2024 11:26 AM Reporting Lab: [facility] [address] Performing Lab: [facility] [address] MAGNESIUM 1.8 mg/dL 1.6-2.6 Aug 23, 2024 05:12 AM [facility] GLUCOSE,BLOOD-poct (STL) Specimen Type: BLOOD Comment: Test Performed by: [id number] Meter #: [id number] Ordering Provider: SILVIA REDDY Report Released Date/Time: Aug 23, 2024 05:23 AM Reporting Lab: [facility] [address] Performing Lab: [facility] #1 [facility] [address] GLUCOSE,BLOOD- poct (STL) 99 mg/dL 72-99 Aug 23, 2024 02:45 AM [facility] OCCULT BLOOD FIT X1 SCREEN Specimen Type: FECES No comment entered. Ordering Provider: SILVIA REDDY Report Released Date/Time: Aug 22, 2024 11:23 AM Reporting Lab: [facility] [address] [facility] [address] Performing Lab: [place] [address] [facility] [address] OCCULT BLOOD (FIT) #1 OF 1 Negative Negative Aug 22, 2024 07:30 PM [facility] OCCULT BLOOD FIT X1 SCREEN Specimen Type: FECES No comment entered. Ordering Provider: SILVIA REDDY Report Released Date/Time: Aug 22, 2024 11:23 AM Reporting Lab: [facility] [address] [facility] [address] Performing Lab: [facility] [address] [facility] [address] OCCULT BLOOD (FIT) #1 OF 1 Negative Negative Aug 22, 2024 06:15 PM [facility] OCCULT BLOOD FIT X1 SCREEN Specimen Type: FECES No comment entered. Ordering Provider: SILVIA REDDY Report Released Date/Time: Aug 22, 2024 11:23 AM Reporting Lab: [place] [address] [facility] [address] Performing Lab: [facility] [address] [facility] [address] OCCULT BLOOD (FIT) #1 OF 1 Negative Negative Aug 22, 2024 04:24 PM [facility] GLUCOSE,BLOOD-poct (STL) Specimen Type: BLOOD Comment: Test Performed by: [id number] Meter #: [id number] Ordering Provider: SILVIA REDDY Report Released Date/Time: Aug 22, 2024 04:36 PM Reporting Lab: [facility] [address] Performing Lab: [facility] #[address] [facility] [address] GLUCOSE,BLOOD- poct (STL) 176 mg/dL H -Aug 22, 2024 04:23 PM [facility] GLUCOSE,BLOOD-poct (STL) Specimen Type: BLOOD Comment: Test Performed by: [id number] Meter #: [id number] Ordering Provider: SILVIA REDDY Report Released Date/Time: Aug 22, 2024 04:36 PM Reporting Lab: [facility] [address] Performing Lab: [facility] [facility] [address] GLUCOSE,BLOOD- poct (STL) 221 mg/dL H 72-Aug 22, 2024 11:15 AM [facility] GLUCOSE,BLOOD-poct (STL) Specimen Type: BLOOD Comment: Test Performed by: [id number] Meter #: [id number] Ordering Provider: SILVIA REDDY Report Released Date/Time: Aug 22, 2024 11:27 AM Reporting Lab: [facility] [address] Performing Lab: [facility] [facility] [address] GLUCOSE,BLOOD- poct (STL) 140 mg/dL H 72-Aug 22, 2024 08:[address] [facility] CBC Specimen Type: BLOOD No comment entered. Ordering Provider: SILVIA REDDY Report Released Date/Time: Aug 17, 2024 01:18 PM Reporting Lab: [facility] [address] Performing Lab: [facility]1 [facility] [address] WBC 3.5 10*3/uL L 3.6-11.2 RBC 3.23 [...] NRBC% 0 Aug 22, 2024 08:03 AM [facility] COMPREHENSIVE METABOLIC PANEL Specimen Type: PLASMA Comment: No hemolysis noted. Ordering Provider: SILVIA REDDY Report Released Date/Time: Aug 17, 2024 01:18 PM Reporting Lab: [facility] [address] [facility] [address] Performing Lab: [address] [address] CREATININE 0.80 mg/dL 0.7-1.3 UREA NITROGEN 9.7 [...] Aug 22, 2024 08:03 AM [facility] FERRITIN Specimen Type: SERUM No comment entered. Ordering Provider: JUDIT PERKINS Report Released Date/Time: Aug 18, 2024 11:01 AM Reporting Lab: [address] [address] Performing Lab: [address] [address] FERRITIN 79.50 ng/mL 22-275 Aug 22, 2024 08:03 AM [facility] IRON/TIBC PROFILE Specimen Type: SERUM No comment entered. Ordering Provider: JUDIT PERKINS Report Released Date/Time: Aug 18, 2024 11:01 AM Reporting Lab: [place] [address] [facility] [address] Performing Lab: [address] [address] TIBC 283 ug/dL 250-450 TRANSFERRIN 226 mg/dL 163-344 IRON SATURATION 7 L 20-50 IRON 19 ug/dL L 65-175 Aug 22, 2024 08:03 AM [facility] B12 Specimen Type: SERUM No comment entered. Ordering Provider: JUDIT PERKINS Report Released Date/Time: Aug 18, 2024 11:01 AM Reporting Lab: [facility] [address] Performing Lab: [facility]1 [facility] [address] B12 631 pg/mL 213-816 Aug 22, 2024 05:03 AM [facility] GLUCOSE,BLOOD-poct (STL) Specimen Type: BLOOD Comment: Test Performed by: [id number] Meter #: [id number] Ordering Provider: SILVIA REDDY Report Released Date/Time: Aug 22, 2024 06:17 AM Reporting Lab: [facility] [address] [facility] [address] Performing Lab: [facility] #[address] [facility] [address] GLUCOSE,BLOOD- poct (STL) 170 mg/dL H 72-Aug 21, 2024 04:32 PM [facility] GLUCOSE,BLOOD-poct (STL) Specimen Type: BLOOD Comment: Test Performed by: [id number] Meter #: [id number] Ordering Provider: SILVIA REDDY Report Released Date/Time: Aug 21, 2024 04:49 PM Reporting Lab: [facility]1 [facility] [address] Performing Lab: [facility] #1 [facility] [address] GLUCOSE,BLOOD- poct (STL) 169 mg/dL H 72-99 Aug 21, 2024 11:53 AM [facility] GLUCOSE,BLOOD-poct (STL) Specimen Type: BLOOD Comment: Test Performed by: [id number] Meter #: [id number] Ordering Provider: SILVIA REDDY Report Released Date/Time: Aug 21, 2024 12:11 PM Reporting Lab: [facility] #[address] [facility] [address] Performing Lab: [facility] #[address] [facility] [address] GLUCOSE,BLOOD- poct (STL) 149 mg/dL H 72-99 Aug 21, 2024 05:10 AM [facility] GLUCOSE,BLOOD-poct (STL) Specimen Type: BLOOD Comment: Test Performed by: [id number] Meter #: [id number] Ordering Provider: SILVIA REDDY Report Released Date/Time: Aug 21, 2024 05:27 AM Reporting Lab: [facility] #1 [place] [address] Performing Lab: [facility] #1 [place] [phone] GLUCOSE,BLOOD- poct (STL) 118 mg/dL H 72-99 Aug 20, 2024 04:38 PM [facility] GLUCOSE,BLOOD-poct (STL) Specimen Type: BLOOD Comment: Test Performed by: [id number] Meter #: [id number] Ordering Provider: SILVIA REDDY Report Released Date/Time: Aug 21, 2024 01:55 AM Reporting Lab: [facility] #1 [place] [address] Performing Lab: [facility] [address] [place] [address] GLUCOSE,BLOOD- poct (STL) 169 mg/dL H 72-Aug 20, 2024 04:36 PM [facility] GLUCOSE,BLOOD-poct (STL) Specimen Type: BLOOD Comment: Test Performed by: [id number] Meter #: [id number] Ordering Provider: SILVIA REDDY Report Released Date/Time: Aug 21, 2024 01:55 AM Reporting Lab: [facility] #1 [place] [address] Performing Lab: [facility] #1 [place] [address] GLUCOSE,BLOOD- poct (STL) 395 mg/dL H 72-99 Aug 20, 2024 11:45 AM [facility] GLUCOSE,BLOOD-poct (STL) Specimen Type: BLOOD Comment: Test Performed by: [id number] Meter #: [id number] Ordering Provider: SILVIA REDDY Report Released Date/Time: Aug 20, 2024 11:56 AM Reporting Lab: [facility] [facility] [address] Performing Lab: [facility] #[address] [facility] [address] GLUCOSE,BLOOD- poct (STL) 169 mg/dL H 72-Aug 20, 2024 05:06 AM [facility] GLUCOSE,BLOOD-poct (STL) Specimen Type: BLOOD Comment: Test Performed by: [id number] Meter #: [id number] Ordering Provider: SILVIA REDDY Report Released Date/Time: Aug 20, 2024 06:05 AM Reporting Lab: [facility] [address] Performing Lab: [facility] #1 [facility] [address] GLUCOSE,BLOOD- poct (STL) 115 mg/dL H 72-Aug 19, 2024 04:23 PM [facility] GLUCOSE,BLOOD-poct (STL) Specimen Type: BLOOD Comment: Test Performed by: [id number] Meter #: [id number] Ordering Provider: SILVIA REDDY Report Released Date/Time: Aug 19, 2024 05:54 PM Reporting Lab: [facility] #[facility] [address] Performing Lab: [facility] #1 [facility] [address] GLUCOSE,BLOOD- poct (STL) 137 mg/dL H 72-99 Aug 19, 2024 11:28 AM [facility] GLUCOSE,BLOOD-poct (STL) Specimen Type: BLOOD Comment: Test Performed by: [id number] Meter #: [id number] Ordering Provider: SILVIA REDDY Report Released Date/Time: Aug 19, 2024 11:51 AM Reporting Lab: [facility] #[facility] [address] Performing Lab: [facility] #1 [facility] [address] GLUCOSE,BLOOD- poct (STL) 190 mg/dL H 72-99 Aug 19, 2024 05:21 AM [facility] GLUCOSE,BLOOD-poct (STL) Specimen Type: BLOOD Comment: Test Performed by: [id number] Meter #: [id number] Ordering Provider: SILVIA REDDY Report Released Date/Time: Aug 19, 2024 05:56 AM Reporting Lab: [facility] #[facility] [address] Performing Lab: [facility] #1 [facility] [address] GLUCOSE,BLOOD- poct (STL) 130 mg/dL H Aug 18, 2024 04:49 PM [facility] GLUCOSE,BLOOD-poct (STL) Specimen Type: BLOOD Comment: Test Performed by: [id number] Meter #: [id number] Ordering Provider: SILVIA REDDY Report Released Date/Time: Aug 18, 2024 05:01 PM Reporting Lab: [facility] [address] Performing Lab: [facility] #[address] [facility] [address] GLUCOSE,BLOOD- poct (STL) 129 mg/dL H Aug 18, 2024 11:23 AM [facility] GLUCOSE,BLOOD-poct (STL) Specimen Type: BLOOD Comment: Test Performed by: [id number] Meter #: [id number] Ordering Provider: SILVIA REDDY Report Released Date/Time: Aug 18, 2024 11:41 AM Reporting Lab: [facility] #[facility] [address] Performing Lab: [facility] #[address] [facility] [address] GLUCOSE,BLOOD- poct (STL) 180 mg/dL H Aug 18, 2024 05:08 AM [facility] GLUCOSE,BLOOD-poct (STL) Specimen Type: BLOOD Comment: Test Performed by: [id number] Meter #: [id number] Ordering Provider: SILVIA REDDY Report Released Date/Time: Aug 18, 2024 05:31 AM Reporting Lab: [facility] #1 [place] [address] Performing Lab: [facility] #1 [facility] [address] GLUCOSE,BLOOD- poct (STL) 127 mg/dL H -Aug 17, 2024 07:32 PM [facility] GLUCOSE,BLOOD-poct (STL) Specimen Type: BLOOD Comment: Test Performed by: [id number] Meter #: [id number] Ordering Provider: SILVIA REDDY Report Released Date/Time: Aug 17, 2024 07:59 PM Reporting Lab: [facility] #1 [place] [address] Performing Lab: [facility] #1 [place] [address] GLUCOSE,BLOOD- poct (STL) 154 mg/dL H -Aug 17, 2024 04:24 PM [facility] GLUCOSE,BLOOD-poct (STL) Specimen Type: BLOOD Comment: Test Performed by: [id number] Meter #: [id number] Ordering Provider: SILVIA REDDY Report Released Date/Time: Aug 17, 2024 04:35 PM Reporting Lab: [facility] #1 [place] [address] Performing Lab: [facility] #1 [place] [address] GLUCOSE,BLOOD- poct (STL) 178 mg/dL H -Aug 17, 2024 05:09 AM [facility] GLUCOSE,BLOOD-poct (STL) Specimen Type: BLOOD Comment: Test Performed by: [id number] Meter #: [id number] Ordering Provider: SILVIA REDDY Report Released Date/Time: Aug 17, 2024 05:54 AM Reporting Lab: [facility] [address] Performing Lab: [facility] #1 [facility] [address] GLUCOSE,BLOOD- poct (STL) 124 mg/dL H 72-Aug 16, 2024 07:40 PM [facility] GLUCOSE,BLOOD-poct (STL) Specimen Type: BLOOD Comment: Test Performed by: [id number] Meter #: [id number] Ordering Provider: SILVIA REDDY Report Released Date/Time: Aug 16, 2024 08:28 PM Reporting Lab: [facility] #[facility] [address] Performing Lab: [facility] #[facility] [address] GLUCOSE,BLOOD- poct (STL) 144 mg/dL H -Aug 16, 2024 04:19 PM [facility] GLUCOSE,BLOOD-poct (STL) Specimen Type: BLOOD Comment: Test Performed by: [id number] Meter #: [id number] Ordering Provider: SILVIA REDDY Report Released Date/Time: Aug 16, 2024 04:45 PM Reporting Lab: [facility] [address] Performing Lab: [facility] #[facility] [address] GLUCOSE,BLOOD- poct (STL) 138 mg/dL H 72-Aug 16, 2024 11:52 AM [facility] GLUCOSE,BLOOD-poct (STL) Specimen Type: BLOOD Comment: Test Performed by: [id number] Meter #: [id number] Ordering Provider: SILVIA REDDY Report Released Date/Time: Aug 16, 2024 12:04 PM Reporting Lab: [facility] #[facility] [address] Performing Lab: [facility] #[facility] [address] GLUCOSE,BLOOD- poct (STL) 135 mg/dL H 72-99 Aug 16, 2024 05:24 AM [facility] GLUCOSE,BLOOD-poct (STL) Specimen Type: BLOOD Comment: Test Performed by: [id number] Meter #: [id number] Ordering Provider: SILVIA REDDY Report Released Date/Time: Aug 16, 2024 05:38 AM Reporting Lab: [facility] [address] Performing Lab: [facility] #[facility] [address] GLUCOSE,BLOOD- poct (STL) 151 mg/dL H Aug 15, 2024 07:31 PM [facility] GLUCOSE,BLOOD-poct (STL) Specimen Type: BLOOD Comment: Test Performed by: [id number] Meter #: [id number] Ordering Provider: SILVIA REDDY Report Released Date/Time: Aug 15, 2024 08:07 PM Reporting Lab: [facility] [address] Performing Lab: [facility] #[facility] [address] GLUCOSE,BLOOD- poct (STL) 173 mg/dL H Aug 15, 2024 04:18 PM [facility] GLUCOSE,BLOOD-poct (STL) Specimen Type: BLOOD Comment: Test Performed by: [id number] Meter #: [id number] Ordering Provider: SILVIA REDDY Report Released Date/Time: Aug 15, 2024 04:59 PM Reporting Lab: [facility] [address] Performing Lab: [facility] #[facility] [address] GLUCOSE,BLOOD- poct (STL) 136 mg/dL H Aug 15, 2024 04:16 PM [facility] GLUCOSE,BLOOD-poct (STL) Specimen Type: BLOOD Comment: Test Performed by: [id number] Meter #: [id number] Ordering Provider: SILVIA REDDY Report Released Date/Time: Aug 15, 2024 04:59 PM Reporting Lab: [facility] #[address] [place] [address] Performing Lab: [facility] #[facility] [address] GLUCOSE,BLOOD- poct (STL) 194 mg/dL H 72-Aug 15, 2024 11:39 AM [facility] GLUCOSE,BLOOD-poct (STL) Specimen Type: BLOOD Comment: Test Performed by: [id number] Meter #: [id number] Ordering Provider: SILVIA REDDY Report Released Date/Time: Aug 15, 2024 12:00 PM Reporting Lab: [facility] #[facility] [place] [address] Performing Lab: [facility] #[address] [place] [address] GLUCOSE,BLOOD- poct (STL) 127 mg/dL H -Aug 15, 2024 05:07 AM [facility] GLUCOSE,BLOOD-poct (STL) Specimen Type: BLOOD Comment: Test Performed by: [id number] Meter #: [id number] Ordering Provider: SILVIA REDDY Report Released Date/Time: Aug 15, 2024 06:14 AM Reporting Lab: [facility] #[address] [place] [address] Performing Lab: [facility] #[address] [place] [address] GLUCOSE,BLOOD- poct (STL) 151 mg/dL H -Aug 14, 2024 04:22 PM [facility] GLUCOSE,BLOOD-poct (STL) Specimen Type: BLOOD Comment: Test Performed by: [id number] Meter #: [id number] Ordering Provider: SILVIA REDDY Report Released Date/Time: Aug 14, 2024 04:52 PM Reporting Lab: [facility] [address] Performing Lab: [facility] [address] GLUCOSE,BLOOD- poct (STL) 129 mg/dL H 72-99 Aug 14, 2024 11:21 AM [facility] GLUCOSE,BLOOD-poct (STL) Specimen Type: BLOOD Comment: Test Performed by: [id number] Meter #: [id number] Ordering Provider: SILVIA REDDY Report Released Date/Time: Aug 14, 2024 11:37 AM Reporting Lab: [facility] [address] Performing Lab: [facility] [address] GLUCOSE,BLOOD- poct (STL) 135 mg/dL H 72-Aug 14, 2024 06:59 AM [facility] QUANTIFERON-TB,4 TUBE Specimen Type: BLOOD [...] For additional information, please refer to [email or web address] PixSpree/faq/XLB369 (This link is being provided for information/ educational purposes only.) Test Performed by [employer], [employer] [facility], [address] [place] [address] Tommie Garcia M.D., Ph.D., Director of Laboratories , [facility] [id number] Ordering Provider: SILVIA REDDY Report Released Date/Time: Aug 11, 2024 03:58 PM Reporting Lab: [facility] [address] [facility] [address] Performing Lab: [facility] [id number] [place] [address] .NIL - QUANTIFERON 0.04 [IU]/mL .MITOGEN-NIL 0.39 [IU]/mL .QUANTIFERON INDETERMINATE NEGATIVE .TB1-NIL <0.00 [IU]/mL .TB2-NIL <0.00 [IU]/mL Aug 14, 2024 06:59 AM [facility] MAGNESIUM Specimen Type: PLASMA Comment: No hemolysis noted. Ordering Provider: SILVIA REDDY Report Released Date/Time: Aug 11, 2024 03:58 PM Reporting Lab: [facility] #[facility] [place] [phone] Performing Lab: [facility] [address] MAGNESIUM 1.9 mg/dL 1.6-2.6 Aug 14, 2024 06:59 AM [facility] B12 Specimen Type: SERUM No comment entered. Ordering Provider: SILVIA REDDY Report Released Date/Time: Aug 11, 2024 03:58 PM Reporting Lab: [facility] [phone] Performing Lab: [facility] [phone] B12 757 pg/mL 213-816 Aug 14, 2024 06:59 AM [facility] FOLATE (STL-MA) Specimen Type: SERUM No comment entered. Ordering Provider: SILVIA REDDY Report Released Date/Time: Aug 11, 2024 03:58 PM Reporting Lab: [facility] [phone] Performing Lab: [facility] [phone] FOLATE (STL-MA) 6.8 ng/mL L 7-20 Aug 14, 2024 06:59 AM [facility] VITAMIN D, 25-HYDROXY Specimen Type: SERUM No comment entered. Ordering Provider: SILVIA REDDY Report Released Date/Time: Aug 11, 2024 03:58 PM Reporting Lab: [facility] [phone] Performing Lab: [facility] [phone] VITAMIN D, 25-HYDROXY 8.9 ng/mL L 30-96 Aug 14, 2024 06:59 AM [facility] COMPREHENSIVE METABOLIC PANEL Specimen Type: PLASMA Comment: No hemolysis noted. Ordering Provider: SILVIA REDDY Report Released Date/Time: Aug 11, 2024 03:58 PM Reporting Lab: [facility] [phone] Performing Lab: [facility] [phone] CREATININE 0.75 mg/dL 0.70-1.30 UREA NITROGEN 13.6 [...] >60 Aug 14, 2024 06:59 AM [facility] CBC Specimen Type: BLOOD No comment entered. Ordering Provider: SILVIA REDDY Report Released Date/Time: Aug 11, 2024 03:58 PM Reporting Lab: [facility] [phone] Performing Lab: [facility] [phone] WBC 4.1 10*3/uL 3.6-11.2 RBC 3.20 10*6/uL [...] Aug 14, 2024 05:08 AM [facility] GLUCOSE,BLOOD-poct (STL) Specimen Type: BLOOD Comment: Test Performed by: [id number] Meter #: [id number] Ordering Provider: SILVIA REDDY Report Released Date/Time: Aug 14, 2024 05:52 AM Reporting Lab: [facility] [address] Performing Lab: [facility] [address] GLUCOSE,BLOOD- poct (STL) 135 mg/dL H 72-99 Aug 13, 2024 04:27 PM [facility] GLUCOSE,BLOOD-poct (STL) Specimen Type: BLOOD Comment: Test Performed by: [id number] Meter #: [id number] Ordering Provider: SILVIA REDDY Report Released Date/Time: Aug 13, 2024 04:41 PM Reporting Lab: [facility] [address] Performing Lab: [facility] [address] GLUCOSE,BLOOD- poct (STL) 181 mg/dL H -Aug 13, 2024 11:33 AM [facility] GLUCOSE,BLOOD-poct (STL) Specimen Type: BLOOD Comment: Test Performed by: [id number] Meter #: [id number] Ordering Provider: SILVIA REDDY Report Released Date/Time: Aug 13, 2024 03:55 PM Reporting Lab: [facility] [address] Performing Lab: [facility] [place] [address] GLUCOSE,BLOOD- poct (STL) 140 mg/dL H Aug 13, 2024 05:54 AM [facility] GLUCOSE,BLOOD-poct (STL) Specimen Type: BLOOD Comment: Test Performed by: [id number] Meter #: [id number] Ordering Provider: SILVIA REDDY Report Released Date/Time: Aug 13, 2024 06:20 AM Reporting Lab: [facility] [address] Performing Lab: [facility] [address] GLUCOSE,BLOOD- poct (STL) 112 mg/dL H Aug 12, 2024 04:35 PM [facility] GLUCOSE,BLOOD-poct (STL) Specimen Type: BLOOD Comment: Test Performed by: [id number] Meter #: [id number] Ordering Provider: SILVIA REDDY Report Released Date/Time: Aug 12, 2024 04:47 PM Reporting Lab: [facility] [address] Performing Lab: [facility] [address] GLUCOSE,BLOOD- poct (STL) 128 mg/dL H 72-99 Aug 12, 2024 11:26 AM [facility] GLUCOSE,BLOOD-poct (STL) Specimen Type: BLOOD Comment: Test Performed by: [id number] Meter #: [id number] Ordering Provider: SILVIA REDDY Report Released Date/Time: Aug 12, 2024 11:45 AM Reporting Lab: [facility] [address] Performing Lab: [facility] [place] [address] GLUCOSE,BLOOD- poct (STL) 188 mg/dL H -Aug 12, 2024 06:13 AM [facility] GLUCOSE,BLOOD-poct (STL) Specimen Type: BLOOD Comment: Test Performed by: [id number] Meter #: [id number] Ordering Provider: SILVIA REDDY Report Released Date/Time: Aug 12, 2024 06:25 AM Reporting Lab: [facility] [address] Performing Lab: [facility] [address] GLUCOSE,BLOOD- poct (STL) 116 mg/dL H 72-99 Aug 11, 2024 04:10 PM [facility] GLUCOSE,BLOOD-poct (STL) Specimen Type: BLOOD Comment: Test Performed by: [id number] Meter #: [id number] Ordering Provider: SILVIA REDDY Report Released Date/Time: Aug 11, 2024 04:27 PM Reporting Lab: [facility] [place] [address] Performing Lab: [facility] [place] [address] GLUCOSE,BLOOD- poct (STL) 184 mg/dL H 72-99 Aug 11, 2024 01:44 PM [facility] MRSA SURVL NARES DNA Specimen [...] Aug 11, 2024 02:03 PM Reporting Lab: [address] [address] Performing Lab: [address] [address] MRSA SURVL NARES DNA Negative Negative Vital Signs: All taken on the encounter date This section contains inpatient and outpatient Vital Signs collected on the date of the Encounter. Date/Time Temperature Pulse Blood Pressure Respiratory Rate SP02 Pain Height Weight Body Mass Index Source Aug 20, 2024 07:29 PM 98.6 73 130/72 18 96 [facility] Aug 20, 2024 03:56 PM 0 [facility] Aug 20, 2024 10:00 AM 97.6 74 126/77 18 97 0 215.2 31 [facility] Advance Directives: [...] DISCUSSION [facility]
--- OUTSIDE RECORDS SUMMARY | 2024-11-17 04:20 | XMS_ITS | Encounter Summary ---
Author Name [facility] [facility] [place] [facility] [place] Address [address] [place] [address] Care Team Providers Care Vineyardist Name Role Phone MANUEL THOMAS Primary Care [...] PART A Apr 08, 2017 PART A [id number] ASHLEY WALKER PATIENT Selected Encounter This section includes the information on record at [place] for the Encounter. Date/Time Encounter Type Encounter Description Reason Provider Source Sep 06, 2024 10:50 AM Outpatient Encounter TELEPHONE PRIMARY [facility] Encounter Template Text not used by [place] Plan of Treatment: Future Appointments (+ 6 [...] 20 appointments. The data comes from all [facility]. Appointment Date/Time Appointment Type Appointme nt Facility Name Sep 21, 2024 01:30 PM AMBULATORY - MEDICINE [facility] Sep 22, 2024 11:00 AM AMBULATORY - MEDICINE [facility] Sep 29, 2024 12:30 PM AMBULATORY - MEDICINE [facility] Oct 02, 2024 09:30 AM AMBULATORY - MEDICINE [facility] Nov 20, 2024 10:30 AM AM[facility]ULATORY - SURGERY [facility] Nov 21, 2024 10:00 AM AMBULATORY - NONE . [facility] Dec 11, 2024 10:30 [...] of theEncounter. The data comes from all [facility]. Test Date/Time Test Type Test Details Facility Name Aug 02, 2024 12:00 AM Laboratory - Chemistry Order CBC BLOOD STAT [facility] Aug 02, 2024 12:00 AM Laboratory - Chemistry Order COMPREHENSIVE METABOLIC PANEL GREEN LI/HEP BLD/PLAS PLASMA [facility] Aug 17, 2024 03:47 PM Consult Order [facility] Cons Bedside [facility] [...] 22, 2024 11:26 AM Reporting Lab: [facility] [address] Performing Lab: [facility] [address] MAGNESIUM 1.8 mg/dL 1.6-2.6 Aug 23, 2024 08:21 AM [facility] CBC Specimen Type: BLOOD No comment entered. Ordering Provider: SILVIA REDDY Report Released Date/Time: Aug 22, 2024 11:19 AM Reporting Lab: [facility] [address] Performing Lab: [facility] [address] WBC 4.0 10*3/uL 3.6-11.2 RBC 3.65 10*6/uL [...] 0.00-0.20 Aug 23, 2024 05:12 AM [facility] GLUCOSE,BLOOD-poct (STL) Specimen Type: BLOOD Comment: Test Performed by: [id number] Meter #: [id number] Ordering Provider: SILVIA REDDY Report Released Date/Time: Aug 23, 2024 05:23 AM Reporting Lab: [facility] [address] Performing Lab: [facility] [address] GLUCOSE,BLOOD- poct (STL) 99 mg/dL 72-99 Aug 23, 2024 02:45 AM [facility] OCCULT BLOOD FIT X1 SCREEN Specimen Type: FECES No comment entered. Ordering Provider: SILVIA REDDY Report Released Date/Time: Aug 22, 2024 11:23 AM Reporting Lab: [address] [address] Performing Lab: [address] [address] OCCULT BLOOD (FIT) #1 OF 1 Negative Negative Aug 22, 2024 07:30 PM [facility] OCCULT BLOOD FIT X1 SCREEN Specimen Type: FECES No comment entered. Ordering Provider: SILVIA REDDY Report Released Date/Time: Aug 22, 2024 11:23 AM Reporting Lab: [address] [address] Performing Lab: [address] [address] OCCULT BLOOD (FIT) #1 OF 1 Negative Negative Aug 22, 2024 06:15 PM [facility] OCCULT BLOOD FIT X1 SCREEN Specimen Type: FECES No comment entered. Ordering Provider: SILVIA REDDY Report Released Date/Time: Aug 22, 2024 11:23 AM Reporting Lab: [address] [address] Performing Lab: [address] [address] OCCULT BLOOD (FIT) #1 OF 1 Negative Negative Aug 22, 2024 04:24 PM [facility] GLUCOSE,BLOOD-poct (STL) Specimen Type: BLOOD Comment: Test Performed by: [id number] Meter #: [id number] Ordering Provider: SILVIA REDDY Report Released Date/Time: Aug 22, 2024 04:36 PM Reporting Lab: [facility] [address] Performing Lab: [facility] [address] GLUCOSE,BLOOD- poct (STL) 176 mg/dL H 72-99 Aug 22, 2024 04:23 PM [facility] GLUCOSE,BLOOD-poct (STL) Specimen Type: BLOOD Comment: Test Performed by: [id number] Meter #: [id number] Ordering Provider: SILVIA REDDY Report Released Date/Time: Aug 22, 2024 04:36 PM Reporting Lab: [facility] [address] Performing Lab: [facility] [address] GLUCOSE,BLOOD- poct (STL) 221 mg/dL H 72-99 Aug 22, 2024 11:15 AM [facility] GLUCOSE,BLOOD-poct (STL) Specimen Type: BLOOD Comment: Test Performed by: [id number] Meter #: [id number] Ordering Provider: SILVIA REDDY Report Released Date/Time: Aug 22, 2024 11:27 AM Reporting Lab: [facility] [address] Performing Lab: [facility] [address] GLUCOSE,BLOOD- poct (STL) 140 mg/dL H 72-99 Aug 22, 2024 08:03 AM [facility] FERRITIN Specimen Type: SERUM No comment entered. Ordering Provider: JUDIT PERKINS Report Released Date/Time: Aug 18, 2024 11:01 AM Reporting Lab: [facility] [address] [facility] [address] Performing Lab: [facility] [address] [facility] [address] FERRITIN 79.50 ng/mL 22-275 Aug 22, 2024 08:03 AM [facility] IRON/TIBC PROFILE Specimen Type: SERUM No comment entered. Ordering Provider: JUDIT PERKINS Report Released Date/Time: Aug 18, 2024 11:01 AM Reporting Lab: [facility] [address] [facility] [address] Performing Lab: [facility] [address] [facility] [address] TIBC 283 ug/dL 250-450 TRANSFERRIN 226 mg/dL 163-344 IRON SATURATION 7 L 20-50 IRON 19 ug/dL L 65-175 Aug 22, 2024 08:03 AM [facility] B12 Specimen Type: SERUM No comment entered. Ordering Provider: JUDIT PERKINS Report Released Date/Time: Aug 18, 2024 11:01 AM Reporting Lab: [facility] [address] Performing Lab: [facility] [address] B12 631 pg/mL 213-816 Aug 22, 2024 08:03 AM [facility] COMPREHENSIVE METABOLIC PANEL Specimen Type: PLASMA Comment: No hemolysis noted. Ordering Provider: SILVIA REDDY Report Released Date/Time: Aug 17, 2024 01:18 PM Reporting Lab: [address] [address] Performing Lab: [address] [address] CREATININE 0.80 mg/dL 0.7-1.3 UREA NITROGEN 9.7 [...] >60 Aug 22, 2024 08:03 AM [facility] CBC Specimen Type: BLOOD No comment entered. Ordering Provider: SILVIA REDDY Report Released Date/Time: Aug 17, 2024 01:18 PM Reporting Lab: [facility] [address] Performing Lab: [facility] [address] WBC 3.5 10*3/uL L 3.6-11.2 RBC 3.23 [...] 0 Aug 22, 2024 05:03 AM [facility] GLUCOSE,BLOOD-poct (STL) Specimen Type: BLOOD Comment: Test Performed by: [id number] Meter #: [id number] Ordering Provider: SILVIA REDDY Report Released Date/Time: Aug 22, 2024 06:17 AM Reporting Lab: [facility] [address] Performing Lab: [facility] [address] GLUCOSE,BLOOD- poct (STL) 170 mg/dL H 72-Aug 21, 2024 04:32 PM [facility] GLUCOSE,BLOOD-poct (STL) Specimen Type: BLOOD Comment: Test Performed by: [id number] Meter #: [id number] Ordering Provider: SILVIA REDDY Report Released Date/Time: Aug 21, 2024 04:49 PM Reporting Lab: [facility] [address] Performing Lab: [facility] [address] GLUCOSE,BLOOD- poct (STL) 169 mg/dL H -Aug 21, 2024 11:53 AM [facility] GLUCOSE,BLOOD-poct (STL) Specimen Type: BLOOD Comment: Test Performed by: [id number] Meter #: [id number] Ordering Provider: SILVIA REDDY Report Released Date/Time: Aug 21, 2024 12:11 PM Reporting Lab: [facility] [address] Performing Lab: [facility] [address] GLUCOSE,BLOOD- poct (STL) 149 mg/dL H 72-Aug 21, 2024 05:10 AM [facility] GLUCOSE,BLOOD-poct (STL) Specimen Type: BLOOD Comment: Test Performed by: [id number] Meter #: [id number] Ordering Provider: SILVIA REDDY Report Released Date/Time: Aug 21, 2024 05:27 AM Reporting Lab: [facility] [address] Performing Lab: [facility] [address] GLUCOSE,BLOOD- poct (STL) 118 mg/dL H 72-Aug 20, 2024 04:38 PM [facility] GLUCOSE,BLOOD-poct (STL) Specimen Type: BLOOD Comment: Test Performed by: [id number] Meter #: [id number] Ordering Provider: SILVIA REDDY Report Released Date/Time: Aug 21, 2024 01:55 AM Reporting Lab: [facility] [address] Performing Lab: [facility] [address] GLUCOSE,BLOOD- poct (STL) 169 mg/dL H -Aug 20, 2024 04:36 PM [facility] GLUCOSE,BLOOD-poct (STL) Specimen Type: BLOOD Comment: Test Performed by: [id number] Meter #: [id number] Ordering Provider: SILVIA REDDY Report Released Date/Time: Aug 21, 2024 01:55 AM Reporting Lab: [facility] [address] Performing Lab: [facility] [address] GLUCOSE,BLOOD- poct (STL) 395 mg/dL H -Aug 20, 2024 11:45 AM [facility] GLUCOSE,BLOOD-poct (STL) Specimen Type: BLOOD Comment: Test Performed by: [id number] Meter #: [id number] Ordering Provider: SILVIA REDDY Report Released Date/Time: Aug 20, 2024 11:56 AM Reporting Lab: [facility] [address] Performing Lab: [facility] [address] GLUCOSE,BLOOD- poct (STL) 169 mg/dL H -Aug 20, 2024 05:06 AM [facility] GLUCOSE,BLOOD-poct (STL) Specimen Type: BLOOD Comment: Test Performed by: [id number] Meter #: [id number] Ordering Provider: SILVIA REDDY Report Released Date/Time: Aug 20, 2024 06:05 AM Reporting Lab: [facility] [address] Performing Lab: [facility] [address] GLUCOSE,BLOOD- poct (STL) 115 mg/dL H -Aug 19, 2024 04:23 PM [facility] GLUCOSE,BLOOD-poct (STL) Specimen Type: BLOOD Comment: Test Performed by: [id number] Meter #: [id number] Ordering Provider: SILVIA REDDY Report Released Date/Time: Aug 19, 2024 05:54 PM Reporting Lab: [facility] [address] Performing Lab: [facility] [address] GLUCOSE,BLOOD- poct (STL) 137 mg/dL H -Aug 19, 2024 11:28 AM [facility] GLUCOSE,BLOOD-poct (STL) Specimen Type: BLOOD Comment: Test Performed by: [id number] Meter #: [id number] Ordering Provider: SILVIA REDDY Report Released Date/Time: Aug 19, 2024 11:51 AM Reporting Lab: [facility] [address] Performing Lab: [facility] [address] GLUCOSE,BLOOD- poct (STL) 190 mg/dL H -Aug 19, 2024 05:21 AM [facility] GLUCOSE,BLOOD-poct (STL) Specimen Type: BLOOD Comment: Test Performed by: [id number] Meter #: [id number] Ordering Provider: SILVIA REDDY Report Released Date/Time: Aug 19, 2024 05:56 AM Reporting Lab: [facility] [address] Performing Lab: [facility] [address] GLUCOSE,BLOOD- poct (STL) 130 mg/dL H 72-Aug 18, 2024 04:49 PM [facility] GLUCOSE,BLOOD-poct (STL) Specimen Type: BLOOD Comment: Test Performed by: [id number] Meter #: [id number] Ordering Provider: SILVIA REDDY Report Released Date/Time: Aug 18, 2024 05:01 PM Reporting Lab: [facility] [address] Performing Lab: [facility] [address] GLUCOSE,BLOOD- poct (STL) 129 mg/dL H -Aug 18, 2024 11:23 AM [facility] GLUCOSE,BLOOD-poct (STL) Specimen Type: BLOOD Comment: Test Performed by: [id number] Meter #: [id number] Ordering Provider: SILVIA REDDY Report Released Date/Time: Aug 18, 2024 11:41 AM Reporting Lab: [facility] [address] Performing Lab: [facility] [address] GLUCOSE,BLOOD- poct (STL) 180 mg/dL H Aug 18, 2024 05:08 AM [facility] GLUCOSE,BLOOD-poct (STL) Specimen Type: BLOOD Comment: Test Performed by: [id number] Meter #: [id number] Ordering Provider: SILVIA REDDY Report Released Date/Time: Aug 18, 2024 05:31 AM Reporting Lab: [facility] [address] Performing Lab: [facility] [address] GLUCOSE,BLOOD- poct (STL) 127 mg/dL H -Aug 17, 2024 07:32 PM [facility] GLUCOSE,BLOOD-poct (STL) Specimen Type: BLOOD Comment: Test Performed by: [id number] Meter #: [id number] Ordering Provider: SILVIA REDDY Report Released Date/Time: Aug 17, 2024 07:59 PM Reporting Lab: [facility] [address] Performing Lab: [facility] [address] GLUCOSE,BLOOD- poct (STL) 154 mg/dL H -Aug 17, 2024 04:24 PM [facility] GLUCOSE,BLOOD-poct (STL) Specimen Type: BLOOD Comment: Test Performed by: [id number] Meter #: [id number] Ordering Provider: SILVIA REDDY Report Released Date/Time: Aug 17, 2024 04:35 PM Reporting Lab: [facility] [address] Performing Lab: [facility] [address] GLUCOSE,BLOOD- poct (STL) 178 mg/dL H -Aug 17, 2024 05:09 AM [facility] GLUCOSE,BLOOD-poct (STL) Specimen Type: BLOOD Comment: Test Performed by: [id number] Meter #: [id number] Ordering Provider: SILVIA REDDY Report Released Date/Time: Aug 17, 2024 05:54 AM Reporting Lab: [facility] [address] Performing Lab: [facility] [address] GLUCOSE,BLOOD- poct (STL) 124 mg/dL H -Aug 16, 2024 07:40 PM [facility] GLUCOSE,BLOOD-poct (STL) Specimen Type: BLOOD Comment: Test Performed by: [id number] Meter #: [id number] Ordering Provider: SILVIA REDDY Report Released Date/Time: Aug 16, 2024 08:28 PM Reporting Lab: [facility] [address] Performing Lab: [facility] [address] GLUCOSE,BLOOD- poct (STL) 144 mg/dL H Aug 16, 2024 04:19 PM [facility] GLUCOSE,BLOOD-poct (STL) Specimen Type: BLOOD Comment: Test Performed by: [id number] Meter #: [id number] Ordering Provider: SILVIA REDDY Report Released Date/Time: Aug 16, 2024 04:45 PM Reporting Lab: [facility] [address] Performing Lab: [facility] [address] GLUCOSE,BLOOD- poct (STL) 138 mg/dL H Aug 16, 2024 11:52 AM [facility] GLUCOSE,BLOOD-poct (STL) Specimen Type: BLOOD Comment: Test Performed by: [id number] Meter #: [id number] Ordering Provider: SILVIA REDDY Report Released Date/Time: Aug 16, 2024 12:04 PM Reporting Lab: [facility] [address] Performing Lab: [facility] [address] GLUCOSE,BLOOD- poct (STL) 135 mg/dL H Aug 16, 2024 05:24 AM [facility] GLUCOSE,BLOOD-poct (STL) Specimen Type: BLOOD Comment: Test Performed by: [id number] Meter #: [id number] Ordering Provider: SILVIA REDDY Report Released Date/Time: Aug 16, 2024 05:38 AM Reporting Lab: [facility] [address] Performing Lab: [facility] [address] GLUCOSE,BLOOD- poct (STL) 151 mg/dL H 72-Aug 15, 2024 07:31 PM [facility] GLUCOSE,BLOOD-poct (STL) Specimen Type: BLOOD Comment: Test Performed by: [id number] Meter #: [id number] Ordering Provider: SILVIA REDDY Report Released Date/Time: Aug 15, 2024 08:07 PM Reporting Lab: [facility] [address] Performing Lab: [facility] [address] GLUCOSE,BLOOD- poct (STL) 173 mg/dL H Aug 15, 2024 04:18 PM [facility] GLUCOSE,BLOOD-poct (STL) Specimen Type: BLOOD Comment: Test Performed by: [id number] Meter #: [id number] Ordering Provider: SILVIA REDDY Report Released Date/Time: Aug 15, 2024 04:59 PM Reporting Lab: [facility] [address] Performing Lab: [facility] [address] GLUCOSE,BLOOD- poct (STL) 136 mg/dL H -Aug 15, 2024 04:16 PM [facility] GLUCOSE,BLOOD-poct (STL) Specimen Type: BLOOD Comment: Test Performed by: [id number] Meter #: [id number] Ordering Provider: SILVIA REDDY Report Released Date/Time: Aug 15, 2024 04:59 PM Reporting Lab: [facility] [address] Performing Lab: [facility] [address] GLUCOSE,BLOOD- poct (STL) 194 mg/dL H -Aug 15, 2024 11:39 AM [facility] GLUCOSE,BLOOD-poct (STL) Specimen Type: BLOOD Comment: Test Performed by: [id number] Meter #: [id number] Ordering Provider: SILVIA REDDY Report Released Date/Time: Aug 15, 2024 12:00 PM Reporting Lab: [facility] [address] Performing Lab: [facility] [address] GLUCOSE,BLOOD- poct (STL) 127 mg/dL H Aug 15, 2024 05:07 AM [facility] GLUCOSE,BLOOD-poct (STL) Specimen Type: BLOOD Comment: Test Performed by: [id number] Meter #: [id number] Ordering Provider: SILVIA REDDY Report Released Date/Time: Aug 15, 2024 06:14 AM Reporting Lab: [facility] [address] Performing Lab: [facility] [address] GLUCOSE,BLOOD- poct (STL) 151 mg/dL H Aug 14, 2024 04:22 PM [facility] GLUCOSE,BLOOD-poct (STL) Specimen Type: BLOOD Comment: Test Performed by: [id number] Meter #: [id number] Ordering Provider: SILVIA REDDY Report Released Date/Time: Aug 14, 2024 04:52 PM Reporting Lab: [facility] [address] Performing Lab: [facility] [address] GLUCOSE,BLOOD- poct (STL) 129 mg/dL H -Aug 14, 2024 11:21 AM [facility] GLUCOSE,BLOOD-poct (STL) Specimen Type: BLOOD Comment: Test Performed by: [id number] Meter #: [id number] Ordering Provider: SILVIA REDDY Report Released Date/Time: Aug 14, 2024 11:37 AM Reporting Lab: [facility] [address] Performing Lab: [facility] [address] GLUCOSE,BLOOD- poct (STL) 135 mg/dL H 72-99 Aug 14, 2024 06:59 AM [facility] QUANTIFERON-TB,4 TUBE Specimen Type: BLOOD [...] For additional information, please refer to [email or web address] (This link is being provided for information/ educational purposes only.) Test Performed by [employer], [employer], [address] [place] [address] Tommie Garcia M.D., Ph.D., Director of Laboratories , [facility] [id number] Ordering Provider: SILVIA REDDY Report Released Date/Time: Aug 11, 2024 03:58 PM Reporting Lab: [facility] [address] [place] [address] Performing Lab: [facility] [address] [facility] .NIL - QUANTIFERON 0.04 [IU]/mL .MITOGEN-NIL 0.39 [IU]/mL .QUANTIFERON INDETERMINATE NEGATIVE .TB1-NIL <0.00 [IU]/mL .TB2-NIL <0.00 [IU]/mL Aug 14, 2024 06:59 AM [facility] MAGNESIUM Specimen Type: PLASMA Comment: No hemolysis noted. Ordering Provider: SILVIA REDDY Report Released Date/Time: Aug 11, 2024 03:58 PM Reporting Lab: [facility] [place] [address] Performing Lab: [facility] [place] [address] MAGNESIUM 1.9 mg/dL 1.6-2.6 Aug 14, 2024 06:59 AM [facility] ([facility] [place] Specimen Type: SERUM No comment entered. Ordering Provider: SILVIA REDDY Report Released Date/Time: Aug 11, 2024 03:58 PM Reporting Lab: [facility] [place] [address] Performing Lab: [facility] [id number] FOLATE ([facility] [place] 6.8 ng/mL L 7-20 Aug 14, 2024 06:59 AM [facility] VITAMIN D, 25-HYDROXY Specimen Type: SERUM No comment entered. Ordering Provider: SILVIA REDDY Report Released Date/Time: Aug 11, 2024 03:58 PM Reporting Lab: [facility] [place] [address] Performing Lab: [facility] [place] [address] VITAMIN D, 25-HYDROXY 8.9 ng/mL L 30-96 Aug 14, 2024 06:59 AM [facility] B12 Specimen Type: SERUM No comment entered. Ordering Provider: SILVIA REDDY Report Released Date/Time: Aug 11, 2024 03:58 PM Reporting Lab: [facility] [address] Performing Lab: [facility] [address] B12 757 pg/mL 213-816 Aug 14, 2024 06:59 AM [facility] COMPREHENSIVE METABOLIC PANEL Specimen Type: PLASMA Comment: No hemolysis noted. Ordering Provider: SILVIA REDDY Report Released Date/Time: Aug 11, 2024 03:58 PM Reporting Lab: [facility] [id number] Performing Lab: [facility] [address] CREATININE 0.75 mg/dL 0.70-1.30 UREA NITROGEN 13.6 [...] >60 Aug 14, 2024 06:59 AM [facility] CBC Specimen Type: BLOOD No comment entered. Ordering Provider: SILVIA REDDY Report Released Date/Time: Aug 11, 2024 03:58 PM Reporting Lab: [facility] [address] Performing Lab: [facility] [address] WBC 4.1 10*3/uL 3.6-11.2 RBC 3.20 10*6/uL [...] 14, 2024 05:08 AM [facility] GLUCOSE,BLOOD-poct (STL) Specimen Type: BLOOD Comment: Test Performed by: [id number] Meter #: [id number] Ordering Provider: SILVIA REDDY Report Released Date/Time: Aug 14, 2024 05:52 AM Reporting Lab: [facility] [place] [address] Performing Lab: [facility] [place] [address] GLUCOSE,BLOOD- poct (STL) 135 mg/dL H 72-99 Aug 13, 2024 04:27 PM [facility] GLUCOSE,BLOOD-poct (STL) Specimen Type: BLOOD Comment: Test Performed by: [id number] Meter #: [id number] Ordering Provider: SILVIA REDDY Report Released Date/Time: Aug 13, 2024 04:41 PM Reporting Lab: [facility] [address] Performing Lab: [facility] [address] GLUCOSE,BLOOD- poct (STL) 181 mg/dL H Aug 13, 2024 11:33 AM [facility] GLUCOSE,BLOOD-poct (STL) Specimen Type: BLOOD Comment: Test Performed by: [id number] Meter #: [id number] Ordering Provider: SILVIA REDDY Report Released Date/Time: Aug 13, 2024 03:55 PM Reporting Lab: [facility] [address] Performing Lab: [facility] [address] GLUCOSE,BLOOD- poct (STL) 140 mg/dL H Aug 13, 2024 05:54 AM [facility] GLUCOSE,BLOOD-poct (STL) Specimen Type: BLOOD Comment: Test Performed by: [id number] Meter #: [id number] Ordering Provider: SILVIA REDDY Report Released Date/Time: Aug 13, 2024 06:20 AM Reporting Lab: [facility] [address] Performing Lab: [facility] [address] GLUCOSE,BLOOD- poct (STL) 112 mg/dL H Aug 12, 2024 04:35 PM [facility] GLUCOSE,BLOOD-poct (STL) Specimen Type: BLOOD Comment: Test Performed by: [id number] Meter #: [id number] Ordering Provider: SILVIA REDDY Report Released Date/Time: Aug 12, 2024 04:47 PM Reporting Lab: [facility] [address] Performing Lab: [facility] [address] GLUCOSE,BLOOD- poct (STL) 128 mg/dL H Aug 12, 2024 11:26 AM [facility] GLUCOSE,BLOOD-poct (STL) Specimen Type: BLOOD Comment: Test Performed by: [id number] Meter #: [id number] Ordering Provider: SILVIA REDDY Report Released Date/Time: Aug 12, 2024 11:45 AM Reporting Lab: [facility] [address] Performing Lab: [facility] [address] GLUCOSE,BLOOD- poct (STL) 188 mg/dL H 72-Aug 12, 2024 06:13 AM [facility] GLUCOSE,BLOOD-poct (STL) Specimen Type: BLOOD Comment: Test Performed by: [id number] Meter #: [id number] Ordering Provider: SILVIA REDDY Report Released Date/Time: Aug 12, 2024 06:25 AM Reporting Lab: [facility] [address] Performing Lab: [facility] [address] GLUCOSE,BLOOD- poct (STL) 116 mg/dL H -Aug 11, 2024 04:10 PM [facility] GLUCOSE,BLOOD-poct (STL) Specimen Type: BLOOD Comment: Test Performed by: [id number] Meter #: [id number] Ordering Provider: SILVIA REDDY Report Released Date/Time: Aug 11, 2024 04:27 PM Reporting Lab: [facility] [address] Performing Lab: [facility] [address] GLUCOSE,BLOOD- poct (STL) 184 mg/dL H 72-Aug 11, 2024 01:44 PM [facility] MRSA SURVL NARES DNA Specimen [...] Aug 11, 2024 02:03 PM Reporting Lab: [facility] [address] [facility] [address] Performing Lab: [facility] [address] [facility] [address] MRSA SURVL NARES DNA Negative Negative Social [...] 10:34 AM QUIT TOBACCO >7 YEARS AGO [facility] Tobacco Use History This section includes a history of the smoking, or tobacco-related health factors, that were collected on or before the date of the Encounter. The data comes from the [place] facility where the Encounter took place. Date/Time Smoking Status/Tobacco Use Comment F acility Sep 30, 2015 10:12 AM QUIT TOBACCO >7 YEARS AGO [facility] Oct 29, 2014 10:23 AM QUIT TOBACCO >7 YEARS AGO [facility] Dec 27, 2013 01:27 PM QUIT TOBACCO >7 YEARS AGO [facility] Feb 24, 2013 02:01 PM LIFETIME NON-USER OF TOBACCO [facility] Feb 11, 2009 10:09 AM QUIT TOBACCO >7 YEARS AGO [facility] Oct 06, 2006 09:30 AM CURRENT NON-TOBACC O USER-HX OF USE [facility] Oct 06, 2006 09:30 AM TOBACCO TERMINATION STAGE [facility] Advance Directives: All historical and current [...] DIRECTIVE DISCUSSION ERICK BARDALES [facility] Encounter Notes: All associated encounter notes This section contains the clinical notes associated to the Encounter. 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 Will place [place] travel request and alert PCP for HH orders /es/ CHARITY HALL REGISTERED NURSE Signed: 09/06/2024 13:18 Receipt Acknowledged By: 09/07/2024 08:47 /shen/ manuel thomas M.D. Staff Physician --- Original Document --- 09/06/24 V15 PACT TELEPHONE CONTACT NOTE STL: Patient/Other contacted: If other, name: [facility] Nurse D/C Cordinator Patient Identifiers : Full Name Date of Telephone Number Other: - Recieved called from the Nurse Discharged Cordinator at [facility]- Patient is concerned on how he is going to be getting home. Patient present to [place] [facility] on 08/30/24 left AMA and represeted the next day for Chest pain. Patient was then transfered to [facility] 08/31/24 see 08/31/24 CC Celeste Self Presenting Care Coordination Plan note Per records received, patient likely needs intervention for gallbladder issues and possibly NSTEMI. 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 Patient currently in observation at [facility] awaiting disposition. Patient underwent Lap Coli on 09/04 which nurse cordinator said it looked and smelled bad CINTIA drain was placed and currently is still in place Patient then underwent an ERCP yesterday and stents placed PT and OT have cleared patient to go home at point of discharge. MD does not have Discharge expected date at this time, but patient is concerned on how patient will be getting home. Patient does have a [facility] travel consult in place Patient at Main [facility] Room #[id number] Provided for records and orders that maybe needed Contact Number [phone] for follow-up call when she know date time and plan for discharge and needs. Contact provided Primary Care phone number and encouraged to call if any questions or concerns. Review that after hours nurse line ext. [phone] and emergency room are available 31/05 for patient use. Contact understanding verified by teach back: Yes Total time spent on phone: 25 For notification only, information forwarded to Michelle Thomas /shen/ CHARITY HALL REGISTERED NURSE Signed: 09/06/2024 11:02 Receipt Acknowledged By: 09/06/2024 11:21 /shen/ manuel thomas M.D. Staff Physician CHARITY HALL [facility] Sep 06, 2024 10:51 AM NURSING NOTE: LOCAL TITLE: V15 PACT TELEPHONE CONTACT NOTE ST STANDARD TITLE: NURSING NOTE DATE OF NOTE: SEP 06, 2024@10:51 ENTRY DATE: SEP 06, 2024@10:51:28 AUTHOR: CHARITY HALL EXP COSIGNER: URGENCY: STATUS: COMPLETED V15 PACT TELEPHONE CONTACT NOTE STL Has ADDENDA Patient/Other contacted: If other, name: [facility] Nurse D/C Cordinator Patient Identifiers : Full Name Date of Telephone Number Other: - Recieved called from the Nurse Discharged Cordinator at [facility]- Patient is concerned on how he is going to be getting home. Patient present to [place] ED on 08/30/24 left AMA and represeted the next day for Chest pain. Patient was then transfered to [facility] 08/31/24 see 08/31/24 CC Celeste Self Presenting Care Coordination Plan note Per records received, patient likely needs intervention for gallbladder issues and possibly NSTEMI. 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 Patient currently in observation at [facility] awaiting disposition. Patient underwent Lap Coli on 09/04 which nurse cordinator said it looked and smelled bad CINTIA drain was placed and currently is still in place Patient then underwent an ERCP yesterday and stents placed PT and OT have cleared patient to go home at point of discharge. MD does not have Discharge expected date at this time, but patient is concerned on how patient will be getting home. [facility] Patient at Main [facility] Room #[id number] Provided for records and orders that maybe needed Contact Number [phone] for follow-up call when she know date time and plan for discharge and needs. Contact provided Primary Care phone number and encouraged to call if any questions or concerns. Review that after hours nurse line ext. [phone] and emergency room are available 31/05 for patient use. Contact understanding verified by teach back: Yes Total time spent on phone: 25 For notification only, information forwarded to Michelle Thomas /camryn HALL REGISTERED NURSE Signed: 09/06/2024 11:02 Receipt Acknowledged By: 09/06/2024 11:21 /camryn thomas M.D. Staff Physician 09/06/2024 ADDENDUM STATUS: COMPLETED recieved updated call from Susan HOLDEN Discharged Cordinator at [facility]- She is Faxing records Patient is being discharged home tomorrow afternoon and they would like transportation set up for 1400 They also need HH for PT/OT only They will be Pulling the ICNTIA Drain in the AM. Will place [place] travel request and alert PCP for HH orders /camryn HALL REGISTERED NURSE Signed: 09/06/2024 13:18 Receipt Acknowledged By: 09/07/2024 08:47 /camryn thomas M.D. Staff Physician 09/07/2024 ADDENDUM STATUS: COMPLETED Patient has approved home health for nursing home from consult placed 08/17, will place home health consult for PT/OT. /shen/ manuel thomas M.D. Staff Physician Signed: 09/07/2024 08:57 09/07/2024 ADDENDUM STATUS: COMPLETED [facility] Nurse D/C Cordinator Identity verified by full name and Date of . called to comfirm that ride is set up for patient- Per leaf system, transportation is scheduled Patient verbalized good understanding. /shen/ CHARITY HALL REGISTERED NURSE Signed: 09/07/2024 08:57 CHARITY HALL [facility]
--- OUTSIDE RECORDS SUMMARY | 2024-11-17 04:20 | XMS_ITS ---
Author Name [facility] Organization [facility] [place] Address [address] [place] [address] Care Team Providers Care Air Crew Officer Name Role Phone MANUEL BAIRD Primary [...] PART A Apr 08, 2017 PART A [id number] ASHLEY WALKER PATIENT Selected Encounter This section includes the information on record at [place] for the Encounter. Date/Time Encounter Type Encounter Description Reason Pro vider Source Sep 06, 2024 01:43 PM Outpatient Encounter ADMIN PAT ACTIVTIES (MASNONCT) IHE Encounter Template Text not used by [place] [...] 21, 2024 01:30 PM AMBULATORY - MEDICINE [facility] Sep 22, 2024 11:00 AM AMBULATORY - MEDICINE [facility] Sep 29, 2024 12:30 PM AMBULATORY - MEDICINE [facility] Oct 02, 2024 09:30 AM AMBULATORY - MEDICINE [facility] Nov 20, 2024 10:30 AM AMBULATORY - SURGERY [facility] Nov 21, 2024 10:00 AM AMBULATORY - NONE . [facility] Dec 11, 2024 10:30 AM AMBULATORY - MEDICINE [facility] Active, Pending, and Scheduled Orders [...] Laboratory - Chemistry Order CBC BLOOD STAT [facility] Aug 02, 2024 12:00 AM Laboratory - Chemistry Order COMPREHENSIVE METABOLIC PANEL GREEN LI/HEP BLD/PLAS PLASMA SP [facility] Aug 17, 2024 03:47 PM Consult Order [facility] Cons Bedside [facility] Lab Results: +/- 30 days [...] Range Comment Aug 23, 2024 08:21 AM [facility] MAGNESIUM Specimen Type: PLASMA No comment entered. Ordering Provider: SILVIA REDDY Report Released Date/Time: Aug 22, 2024 11:26 AM Reporting Lab: [facility] [address] Performing Lab: [facility] [address] MAGNESIUM 1.8 mg/dL 1.6-2.6 Aug 23, 2024 08:[address] [facility] CBC Specimen Type: BLOOD No comment entered. Ordering Provider: SILVIA REDDY Report Released Date/Time: Aug 22, 2024 11:19 AM Reporting Lab: [facility] [address] Performing Lab: [facility] [address] WBC 4.0 10*3/uL 3.6-11.2 RBC 3.65 10*6/uL [...] 0.00-0.20 Aug 23, 2024 05:[address] [facility] GLUCOSE,BLOOD-poct (STL) Specimen Type: BLOOD Comment: Test Performed by: [id number] Meter #: [id number] Ordering Provider: SILVIA REDDY Report Released Date/Time: Aug 23, 2024 05:23 AM Reporting Lab: [facility] [address] Performing Lab: [facility] [address] GLUCOSE,BLOOD- poct (STL) 99 mg/dL 72-99 Aug 23, 2024 02:45 AM [facility] OCCULT BLOOD FIT X1 SCREEN Specimen Type: FECES No comment entered. Ordering Provider: SILVIA REDDY Report Released Date/Time: Aug 22, 2024 11:23 AM Reporting Lab: [address] [address] Performing Lab: [address] [address] OCCULT BLOOD (FIT) #1 OF 1 Negative Negative Aug 22, 2024 07:30 PM [facility] OCCULT BLOOD FIT X1 SCREEN Specimen Type: FECES No comment entered. Ordering Provider: SILVIA REDDY Report Released Date/Time: Aug 22, 2024 11:23 AM Reporting Lab: [address] [address] Performing Lab: [address] [address] OCCULT BLOOD (FIT) #1 OF 1 Negative Negative Aug 22, 2024 06:15 PM [facility] OCCULT BLOOD FIT X1 SCREEN Specimen Type: FECES No comment entered. Ordering Provider: SILVIA REDDY Report Released Date/Time: Aug 22, 2024 11:23 AM Reporting Lab: [address] [address] Performing Lab: [address] [address] OCCULT BLOOD (FIT) #1 OF 1 Negative Negative Aug 22, 2024 04:24 PM [facility] GLUCOSE,BLOOD-poct (STL) Specimen Type: BLOOD Comment: Test Performed by: [id number] Meter #: [id number] Ordering Provider: SILVIA REDDY Report Released Date/Time: Aug 22, 2024 04:36 PM Reporting Lab: [facility] [address] Performing Lab: [facility] [address] GLUCOSE,BLOOD- poct (STL) 176 mg/dL H 72-99 Aug 22, 2024 04:23 PM [facility] GLUCOSE,BLOOD-poct (STL) Specimen Type: BLOOD Comment: Test Performed by: [id number] Meter #: [id number] Ordering Provider: SILVIA REDDY Report Released Date/Time: Aug 22, 2024 04:36 PM Reporting Lab: [facility] [address] Performing Lab: [facility] [address] GLUCOSE,BLOOD- poct (STL) 221 mg/dL H 72-99 Aug 22, 2024 11:15 AM [facility] GLUCOSE,BLOOD-poct (STL) Specimen Type: BLOOD Comment: Test Performed by: [id number] Meter #: [id number] Ordering Provider: SILVIA REDDY Report Released Date/Time: Aug 22, 2024 11:27 AM Reporting Lab: [facility] [address] Performing Lab: [facility] [address] GLUCOSE,BLOOD- poct (STL) 140 mg/dL H 72-99 Aug 22, 2024 08:03 AM [facility] FERRITIN Specimen Type: SERUM No comment entered. Ordering Provider: JUDIT PERKINS Report Released Date/Time: Aug 18, 2024 11:01 AM Reporting Lab: [address] [address] Performing Lab: [facility] [address] [facility] [address] FERRITIN 79.50 ng/mL 22-275 Aug 22, 2024 08:03 AM [facility] IRON/TIBC PROFILE Specimen Type: SERUM No comment entered. Ordering Provider: JUDIT PERKINS Report Released Date/Time: Aug 18, 2024 11:01 AM Reporting Lab: [facility] [address] [place] [address] Performing Lab: [facility] [address] [place] [address] TIBC 283 ug/dL 250-450 TRANSFERRIN 226 mg/dL 163-344 IRON SATURATION 7 L 20-50 IRON 19 ug/dL L 65-175 Aug 22, 2024 08:03 AM [facility] B12 Specimen Type: SERUM No comment entered. Ordering Provider: JUDIT PERKINS Report Released Date/Time: Aug 18, 2024 11:01 AM Reporting Lab: [facility] [address] Performing Lab: [facility] [address] B12 631 pg/mL 213-816 Aug 22, 2024 08:03 AM [facility] COMPREHENSIVE METABOLIC PANEL Specimen Type: PLASMA Comment: No hemolysis noted. Ordering Provider: SILVIA REDDY Report Released Date/Time: Aug 17, 2024 01:18 PM Reporting Lab: [facility] [address] [place] [address] Performing Lab: [facility] [address] [place] [address] CREATININE 0.80 mg/dL 0.7-1.3 UREA NITROGEN 9.7 [...] >60 Aug 22, 2024 08:[address] [facility] CBC Specimen Type: BLOOD No comment entered. Ordering Provider: SILVIA REDDY Report Released Date/Time: Aug 17, 2024 01:18 PM Reporting Lab: [facility] [address] Performing Lab: [facility] [address] WBC 3.5 10*3/uL L 3.6-11.2 RBC 3.23 [...] 0 Aug 22, 2024 05:[address] [facility] GLUCOSE,BLOOD-poct (STL) Specimen Type: BLOOD Comment: Test Performed by: [id number] Meter #: [id number] Ordering Provider: SILVIA REDDY Report Released Date/Time: Aug 22, 2024 06:17 AM Reporting Lab: [facility] [address] Performing Lab: [facility] [address] GLUCOSE,BLOOD- poct (STL) 170 mg/dL H 72-99 Aug 21, 2024 04:32 PM [facility] GLUCOSE,BLOOD-poct (STL) Specimen Type: BLOOD Comment: Test Performed by: [id number] Meter #: [id number] Ordering Provider: SILVIA REDDY Report Released Date/Time: Aug 21, 2024 04:49 PM Reporting Lab: [facility] [address] Performing Lab: [facility] [address] GLUCOSE,BLOOD- poct (STL) 169 mg/dL H 72-99 Aug 21, 2024 11:53 AM [facility] GLUCOSE,BLOOD-poct (STL) Specimen Type: BLOOD Comment: Test Performed by: [id number] Meter #: [id number] Ordering Provider: SILVIA REDDY Report Released Date/Time: Aug 21, 2024 12:11 PM Reporting Lab: [facility] [address] Performing Lab: [facility] [address] GLUCOSE,BLOOD- poct (STL) 149 mg/dL H 72-99 Aug 21, 2024 05:10 AM [facility] GLUCOSE,BLOOD-poct (STL) Specimen Type: BLOOD Comment: Test Performed by: [id number] Meter #: [id number] Ordering Provider: SILVIA REDDY Report Released Date/Time: Aug 21, 2024 05:27 AM Reporting Lab: [facility] [address] Performing Lab: [facility] [address] GLUCOSE,BLOOD- poct (STL) 118 mg/dL H -Aug 20, 2024 04:38 PM [facility] GLUCOSE,BLOOD-poct (STL) Specimen Type: BLOOD Comment: Test Performed by: [id number] Meter #: [id number] Ordering Provider: SILVIA REDDY Report Released Date/Time: Aug 21, 2024 01:55 AM Reporting Lab: [facility] [address] Performing Lab: [facility] [address] GLUCOSE,BLOOD- poct (STL) 169 mg/dL H -Aug 20, 2024 04:36 PM [facility] GLUCOSE,BLOOD-poct (STL) Specimen Type: BLOOD Comment: Test Performed by: [id number] Meter #: [id number] Ordering Provider: SILVIA REDDY Report Released Date/Time: Aug 21, 2024 01:55 AM Reporting Lab: [facility] [address] Performing Lab: [facility] [address] GLUCOSE,BLOOD- poct (STL) 395 mg/dL H -Aug 20, 2024 11:45 AM [facility] GLUCOSE,BLOOD-poct (STL) Specimen Type: BLOOD Comment: Test Performed by: [id number] Meter #: [id number] Ordering Provider: SILVIA REDDY Report Released Date/Time: Aug 20, 2024 11:56 AM Reporting Lab: [facility] [address] Performing Lab: [facility] [address] GLUCOSE,BLOOD- poct (STL) 169 mg/dL H -Aug 20, 2024 05:06 AM [facility] GLUCOSE,BLOOD-poct (STL) Specimen Type: BLOOD Comment: Test Performed by: [id number] Meter #: [id number] Ordering Provider: SILVIA REDDY Report Released Date/Time: Aug 20, 2024 06:05 AM Reporting Lab: [facility] [address] Performing Lab: [facility] [address] GLUCOSE,BLOOD- poct (STL) 115 mg/dL H 72-Aug 19, 2024 04:23 PM [facility] GLUCOSE,BLOOD-poct (STL) Specimen Type: BLOOD Comment: Test Performed by: [id number] Meter #: [id number] Ordering Provider: SILVIA REDDY Report Released Date/Time: Aug 19, 2024 05:54 PM Reporting Lab: [facility] [address] Performing Lab: [facility] [address] GLUCOSE,BLOOD- poct (STL) 137 mg/dL H -Aug 19, 2024 11:28 AM [facility] GLUCOSE,BLOOD-poct (STL) Specimen Type: BLOOD Comment: Test Performed by: [id number] Meter #: [id number] Ordering Provider: SILVIA REDDY Report Released Date/Time: Aug 19, 2024 11:51 AM Reporting Lab: [facility] [address] Performing Lab: [facility] [address] GLUCOSE,BLOOD- poct (STL) 190 mg/dL H -Aug 19, 2024 05:21 AM [facility] GLUCOSE,BLOOD-poct (STL) Specimen Type: BLOOD Comment: Test Performed by: [id number] Meter #: [id number] Ordering Provider: SILVIA REDDY Report Released Date/Time: Aug 19, 2024 05:56 AM Reporting Lab: [facility] [address] Performing Lab: [facility] [address] GLUCOSE,BLOOD- poct (STL) 130 mg/dL H 72-Aug 18, 2024 04:49 PM [facility] GLUCOSE,BLOOD-poct (STL) Specimen Type: BLOOD Comment: Test Performed by: [id number] Meter #: [id number] Ordering Provider: SILVIA REDDY Report Released Date/Time: Aug 18, 2024 05:01 PM Reporting Lab: [facility] [address] Performing Lab: [facility] [address] GLUCOSE,BLOOD- poct (STL) 129 mg/dL H -Aug 18, 2024 11:23 AM [facility] GLUCOSE,BLOOD-poct (STL) Specimen Type: BLOOD Comment: Test Performed by: [id number] Meter #: [id number] Ordering Provider: SILVIA REDDY Report Released Date/Time: Aug 18, 2024 11:41 AM Reporting Lab: [facility] [address] Performing Lab: [facility] [address] GLUCOSE,BLOOD- poct (STL) 180 mg/dL H 72-Aug 18, 2024 05:08 AM [facility] GLUCOSE,BLOOD-poct (STL) Specimen Type: BLOOD Comment: Test Performed by: [id number] Meter #: [id number] Ordering Provider: SILVIA REDDY Report Released Date/Time: Aug 18, 2024 05:31 AM Reporting Lab: [facility] [address] Performing Lab: [facility] [address] GLUCOSE,BLOOD- poct (STL) 127 mg/dL H -Aug 17, 2024 07:32 PM [facility] GLUCOSE,BLOOD-poct (STL) Specimen Type: BLOOD Comment: Test Performed by: [id number] Meter #: [id number] Ordering Provider: SILVIA REDDY Report Released Date/Time: Aug 17, 2024 07:59 PM Reporting Lab: [facility] [address] Performing Lab: [facility] [address] GLUCOSE,BLOOD- poct (STL) 154 mg/dL H -Aug 17, 2024 04:24 PM [facility] GLUCOSE,BLOOD-poct (STL) Specimen Type: BLOOD Comment: Test Performed by: [id number] Meter #: [id number] Ordering Provider: SILVIA REDDY Report Released Date/Time: Aug 17, 2024 04:35 PM Reporting Lab: [facility] [address] Performing Lab: [facility] [address] GLUCOSE,BLOOD- poct (STL) 178 mg/dL H -Aug 17, 2024 05:09 AM [facility] GLUCOSE,BLOOD-poct (STL) Specimen Type: BLOOD Comment: Test Performed by: [id number] Meter #: [id number] Ordering Provider: SILVIA REDDY Report Released Date/Time: Aug 17, 2024 05:54 AM Reporting Lab: [facility] [address] Performing Lab: [facility] [address] GLUCOSE,BLOOD- poct (STL) 124 mg/dL H Aug 16, 2024 07:40 PM [facility] GLUCOSE,BLOOD-poct (STL) Specimen Type: BLOOD Comment: Test Performed by: [id number] Meter #: [id number] Ordering Provider: SILVIA REDDY Report Released Date/Time: Aug 16, 2024 08:28 PM Reporting Lab: [facility] [address] Performing Lab: [facility] [address] GLUCOSE,BLOOD- poct (STL) 144 mg/dL H Aug 16, 2024 04:19 PM [facility] GLUCOSE,BLOOD-poct (STL) Specimen Type: BLOOD Comment: Test Performed by: [id number] Meter #: [id number] Ordering Provider: SILVIA REDDY Report Released Date/Time: Aug 16, 2024 04:45 PM Reporting Lab: [facility] [address] Performing Lab: [facility] [address] GLUCOSE,BLOOD- poct (STL) 138 mg/dL H Aug 16, 2024 11:52 AM [facility] GLUCOSE,BLOOD-poct (STL) Specimen Type: BLOOD Comment: Test Performed by: [id number] Meter #: [id number] Ordering Provider: SILVIA REDDY Report Released Date/Time: Aug 16, 2024 12:04 PM Reporting Lab: [facility] [address] Performing Lab: [facility] [address] GLUCOSE,BLOOD- poct (STL) 135 mg/dL H Aug 16, 2024 05:24 AM [facility] GLUCOSE,BLOOD-poct (STL) Specimen Type: BLOOD Comment: Test Performed by: [id number] Meter #: [id number] Ordering Provider: SILVIA REDDY Report Released Date/Time: Aug 16, 2024 05:38 AM Reporting Lab: [facility] [address] Performing Lab: [facility] [address] GLUCOSE,BLOOD- poct (STL) 151 mg/dL H 72-Aug 15, 2024 07:31 PM [facility] GLUCOSE,BLOOD-poct (STL) Specimen Type: BLOOD Comment: Test Performed by: [id number] Meter #: [id number] Ordering Provider: SILVIA REDDY Report Released Date/Time: Aug 15, 2024 08:07 PM Reporting Lab: [facility] [address] Performing Lab: [facility] [address] GLUCOSE,BLOOD- poct (STL) 173 mg/dL H -Aug 15, 2024 04:18 PM [facility] GLUCOSE,BLOOD-poct (STL) Specimen Type: BLOOD Comment: Test Performed by: [id number] Meter #: [id number] Ordering Provider: SILVIA REDDY Report Released Date/Time: Aug 15, 2024 04:59 PM Reporting Lab: [facility] [address] Performing Lab: [facility] [address] GLUCOSE,BLOOD- poct (STL) 136 mg/dL H 72-Aug 15, 2024 04:16 PM [facility] GLUCOSE,BLOOD-poct (STL) Specimen Type: BLOOD Comment: Test Performed by: [id number] Meter #: [id number] Ordering Provider: SILVIA REDDY Report Released Date/Time: Aug 15, 2024 04:59 PM Reporting Lab: [facility] [address] Performing Lab: [facility] [address] GLUCOSE,BLOOD- poct (STL) 194 mg/dL H -Aug 15, 2024 11:39 AM [facility] GLUCOSE,BLOOD-poct (STL) Specimen Type: BLOOD Comment: Test Performed by: [id number] Meter #: [id number] Ordering Provider: SILVIA REDDY Report Released Date/Time: Aug 15, 2024 12:00 PM Reporting Lab: [facility] [address] Performing Lab: [facility] [address] GLUCOSE,BLOOD- poct (STL) 127 mg/dL H Aug 15, 2024 05:07 AM [facility] GLUCOSE,BLOOD-poct (STL) Specimen Type: BLOOD Comment: Test Performed by: [id number] Meter #: [id number] Ordering Provider: SILVIA REDDY Report Released Date/Time: Aug 15, 2024 06:14 AM Reporting Lab: [facility] [address] Performing Lab: [facility] [address] GLUCOSE,BLOOD- poct (STL) 151 mg/dL H Aug 14, 2024 04:22 PM [facility] GLUCOSE,BLOOD-poct (STL) Specimen Type: BLOOD Comment: Test Performed by: [id number] Meter #: [id number] Ordering Provider: SILVIA REDDY Report Released Date/Time: Aug 14, 2024 04:52 PM Reporting Lab: [facility] [address] Performing Lab: [facility] [address] GLUCOSE,BLOOD- poct (STL) 129 mg/dL H Aug 14, 2024 11:[address] [facility] GLUCOSE,BLOOD-poct (STL) Specimen Type: BLOOD Comment: Test Performed by: [id number] Meter #: [id number] Ordering Provider: SILVIA REDDY Report Released Date/Time: Aug 14, 2024 11:37 AM Reporting Lab: [facility] [address] Performing Lab: [facility] [address] GLUCOSE,BLOOD- poct (STL) 135 mg/dL H 72-99 Aug 14, 2024 06:[address] [facility] QUANTIFERON-TB,4 TUBE Specimen Type: BLOOD [...] For additional information, please refer to http://education. LegUP. iLyngo/faq/XEI715 (This link is being provided for information/ educational purposes only.) Test Performed by [employer] [facility], [address] [place], [place] Tommie Garcia M.D., Ph.D., Director of Laboratories , [facility] [id number] Ordering Provider: SILVIA REDDY Report Released Date/Time: Aug 11, 2024 03:58 PM Reporting Lab: [facility] [address] [place] [address] Performing Lab: [facility] [address] [facility] [address] .NIL - QUANTIFERON 0.04 [IU]/mL .MITOGEN-NIL 0.39 [IU]/mL .QUANTIFERON INDETERMINATE NEGATIVE .TB1-NIL <0.00 [IU]/mL .TB2-NIL <0.00 [IU]/mL Aug 14, 2024 06:[address] [facility] MAGNESIUM Specimen Type: PLASMA Comment: No hemolysis noted. Ordering Provider: SILVIA REDDY Report Released Date/Time: Aug 11, 2024 03:58 PM Reporting Lab: [facility] [address] Performing Lab: [facility] [address] MAGNESIUM 1.9 mg/dL 1.6-2.6 Aug 14, 2024 06:[address] [facility] B12 Specimen Type: SERUM No comment entered. Ordering Provider: SILVIA REDDY Report Released Date/Time: Aug 11, 2024 03:58 PM Reporting Lab: [facility] [address] Performing Lab: [facility] [address] B12 757 pg/mL 213-816 Aug 14, 2024 06:[address] [facility] VITAMIN D, 25-HYDROXY Specimen Type: SERUM No comment entered. Ordering Provider: SILVIA REDDY Report Released Date/Time: Aug 11, 2024 03:58 PM Reporting Lab: [facility] [phone] Performing Lab: [facility] [place] [id number] VITAMIN D, 25-HYDROXY 8.9 ng/mL L 30-96 Aug 14, 2024 06:[address] [facility] FOLATE (STL-MA) Specimen Type: SERUM No comment entered. Ordering Provider: SILVIA REDDY Report Released Date/Time: Aug 11, 2024 03:58 PM Reporting Lab: [facility] [place] [address] Performing Lab: [facility] [place] [address] FOLATE (STL-MA) 6.8 ng/mL L 7-20 Aug 14, 2024 06:59 AM [facility] COMPREHENSIVE METABOLIC PANEL Specimen Type: PLASMA Comment: No hemolysis noted. Ordering Provider: SILVIA REDDY Report Released Date/Time: Aug 11, 2024 03:58 PM Reporting Lab: [facility] [place] [address] Performing Lab: [facility] [place] [address] CREATININE 0.75 mg/dL 0.70-1.30 UREA NITROGEN 13.6 [...] 95.88 >60 Aug 14, 2024 06:59 AM [facility] CBC Specimen Type: BLOOD No comment entered. Ordering Provider: SILVIA REDDY Report Released Date/Time: Aug 11, 2024 03:58 PM Reporting Lab: [facility] [place] [address] Performing Lab: [facility] [place] [address] WBC 4.1 10*3/uL 3.6-11.2 RBC 3.20 10*6/uL [...] 0.00-0.20 Aug 14, 2024 05:[address] [facility] GLUCOSE,BLOOD-poct (STL) Specimen Type: BLOOD Comment: Test Performed by: [id number] Meter #: [id number] Ordering Provider: SILVIA REDDY Report Released Date/Time: Aug 14, 2024 05:52 AM Reporting Lab: [facility] [phone] Performing Lab: [facility] [phone] GLUCOSE,BLOOD- poct (STL) 135 mg/dL H 72-99 Aug 13, 2024 04:27 PM [facility] GLUCOSE,BLOOD-poct (STL) Specimen Type: BLOOD Comment: Test Performed by: [id number] Meter #: [id number] Ordering Provider: SILVIA REDDY Report Released Date/Time: Aug 13, 2024 04:41 PM Reporting Lab: [facility] [address] Performing Lab: [facility] [address] GLUCOSE,BLOOD- poct (STL) 181 mg/dL H -Aug 13, 2024 11:33 AM [facility] GLUCOSE,BLOOD-poct (STL) Specimen Type: BLOOD Comment: Test Performed by: [id number] Meter #: [id number] Ordering Provider: SILVIA REDDY Report Released Date/Time: Aug 13, 2024 03:55 PM Reporting Lab: [facility] [phone] Performing Lab: [facility] [facility] [address] GLUCOSE,BLOOD- poct (STL) 140 mg/dL H Aug 13, 2024 05:54 AM [facility] GLUCOSE,BLOOD-poct (STL) Specimen Type: BLOOD Comment: Test Performed by: [id number] Meter #: [id number] Ordering Provider: SILVIA REDDY Report Released Date/Time: Aug 13, 2024 06:20 AM Reporting Lab: [facility] [address] Performing Lab: [facility] [facility] [address] GLUCOSE,BLOOD- poct (STL) 112 mg/dL H Aug 12, 2024 04:35 PM [facility] GLUCOSE,BLOOD-poct (STL) Specimen Type: BLOOD Comment: Test Performed by: [id number] Meter #: [id number] Ordering Provider: SILVIA REDDY Report Released Date/Time: Aug 12, 2024 04:47 PM Reporting Lab: [facility] [address] Performing Lab: [facility] [facility] [address] GLUCOSE,BLOOD- poct (STL) 128 mg/dL H -Aug 12, 2024 11:26 AM [facility] GLUCOSE,BLOOD-poct (STL) Specimen Type: BLOOD Comment: Test Performed by: [id number] Meter #: [id number] Ordering Provider: SILVIA REDDY Report Released Date/Time: Aug 12, 2024 11:45 AM Reporting Lab: [facility] [facility] [address] Performing Lab: [facility] [address] GLUCOSE,BLOOD- poct (STL) 188 mg/dL H Aug 12, 2024 06:13 AM [facility] GLUCOSE,BLOOD-poct (STL) Specimen Type: BLOOD Comment: Test Performed by: [id number] Meter #: [id number] Ordering Provider: SILVIA REDDY Report Released Date/Time: Aug 12, 2024 06:25 AM Reporting Lab: [facility] [facility] [address] Performing Lab: [facility] [address] GLUCOSE,BLOOD- poct (STL) 116 mg/dL H Aug 11, 2024 04:10 PM [facility] GLUCOSE,BLOOD-poct (STL) Specimen Type: BLOOD Comment: Test Performed by: [id number] Meter #: [id number] Ordering Provider: SILVIA REDDY Report Released Date/Time: Aug 11, 2024 04:27 PM Reporting Lab: [facility] [facility] [address] Performing Lab: [facility] [address] GLUCOSE,BLOOD- poct (STL) 184 mg/dL H -Aug 11, 2024 01:44 PM [facility] MRSA SURVL NARES DNA Specimen [...] Aug 11, 2024 02:03 PM Reporting Lab: [facility] [address] [facility] [address] Performing Lab: [facility] [address] [facility] [address] MRSA SURVL NARES DNA Negative Negative Social History: Smoking Status (Most current) and Tobacco Use (All prior to encounter date) This section includes the most current, and the historical, smoking and tobacco- related health factors from the [place] facility where the Encounter took place. Current Smoking Status This section includes the most current smoking, or tobacco-related health factor, from the [place] facility where the Encounter took place. Date/Time Current Smoking Status Comment Radhika goins Aug 11, 2016 10:34 AM QUIT TOBACCO >7 YEARS AGO [facility] Tobacco Use History This section includes a history of the smoking, or tobacco-related health factors, that were collected on or before the date of the Encounter. The data comes from the [place] facility where the Encounter took place. Date/Time Smoking Status/Tobacco Use Comment F acility Sep 30, 2015 10:12 AM QUIT TOBACCO >7 YEARS AGO [facility] Oct 29, 2014 10:23 AM QUIT TOBACCO >7 YEARS AGO [facility] Dec 27, 2013 01:27 PM QUIT TOBACCO >7 YEARS AGO [facility] Feb 24, 2013 02:01 PM LIFETIME NON-USER OF TOBACCO [facility] Feb 11, 2009 10:09 AM QUIT TOBACCO >7 YEARS AGO [facility] Oct 06, 2006 09:30 AM CURRENT NON-TOBACC O USER-HX OF USE [facility] Oct 06, 2006 09:30 AM TOBACCO TERMINATION STAGE [facility] Advance Directives: All historical and current [...] DISCUSSION ERICK BARDALES [facility] Encounter Notes: All associated encounter notes This section contains the clinical notes associated to the Encounter. Date/Time Encounter Note(s) Provider Source Sep 06, 2024 01:43 PM ADMINISTRATIVE NOT E: LOCAL TITLE: ADMINISTRATIVE STL STANDARD TITLE: ADMINISTRATIVE NOTE DATE OF NOTE: SEP 06, 2024@13:43 ENTRY DATE: SEP 06, 2024@13:44:05 AUTHOR: DICKSON CASPER EXP COSIGNER: URGENCY: STATUS: COMPLETED ADMINISTRATIVE STL Has ADDENDA Received fax from [facility] pertaining to patient's care. Fax placed in provider's folder for review. /camryn [facility]PER [facility] Signed: 09/06/2024 13:45 Receipt Acknowledged By: 09/06/2024 14:22 /camryn HALL REGISTERED NURSE 09/06/2024 ADDENDUM STATUS: COMPLETED records from hospitalization provided to PCP to place HH PT/ OT consult /camryn HALL REGISTERED NURSE Signed: 09/06/2024 14:22 DICKSON CASPER [facility]
--- OUTSIDE RECORDS SUMMARY | 2024-11-17 04:20 | XMS_ITS ---
[place] DAILY HOSPITALIZATION DATA 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 Date/Time Encounter Type Encounter Description Reason Pro vider Source Aug 21, 2024 01:53 AM Inpatient Visit DAILY HOSPITALIZATION DATA [facility] [...] 10:00 AM AMBULATORY - MEDICINE [facility] Aug 24, 2024 10:30 AM AMBULATORY - MEDICINE [facility] Aug 30, 2024 09:30 AM AMBULATORY MEDICINE [facility] Aug 31, 2024 01:00 PM AMBULATORY - SUR[facility]ERY [facility] Sep 21, 2024 01:30 PM AMBULATORY - MEDICINE [facility] Sep 22, 2024 11:00 AM AMBULATORY - MEDICINE [facility] Sep 29, 2024 12:30 PM AMBULATORY - MEDICINE [facility] Oct 02, 2024 09:30 AM AMBULATORY - MEDICINE [facility] Nov 20, 2024 10:30 AM AMBULATORY - SUR[facility]ERY [facility] Nov 21, 2024 10:00 AM AMBULATORY - NONE [facility] Dec 11, 2024 10:30 AM AMBULATORY - MEDICINE [facility] Active, Pending, and Scheduled Orders This section includes a listing of several types of active, pending, and scheduled orders, including clinic medications orders, diagnostic test orders, procedure orders and consult orders; where the start date of the order is 45 days before the date of the Encounter or 45 days after the date of theEncounter. The data comes from all [facility]. Test Date/Time Test Type Test Details Facility Name Aug 02, 2024 12:00 AM Laboratory - Chemistry Order CBC BLOOD STAT SP [facility] Aug 02, 2024 12:00 AM Laboratory - Chemistry Order COMPREHENSIVE METABOLIC PANEL GREEN LI/HEP BLD/PLAS PLASMA SP [facility] Aug 17, 2024 03:47 PM Consult Order MEDICINE [facility] Cons Bedside [facility] Lab Results: +/- [...] Aug 22, 2024 11:26 AM Reporting Lab: [facility] [address] Performing Lab: [facility] [address] MAGNESIUM 1.8 mg/dL 1.6-2.6 Aug 23, 2024 08:21 AM [facility] CBC Specimen Type: BLOOD No comment entered. Ordering Provider: SILVIA REDDY Report Released Date/Time: Aug 22, 2024 11:19 AM Reporting Lab: [facility] [address] Performing Lab: [facility] [address] WBC 4.0 10*3/uL 3.6-11.2 RBC 3.65 10*6/uL [...] Specimen Type: BLOOD Comment: Test Performed by: [id number] Meter #: [id number] Ordering Provider: SILVIA REDDY Report Released Date/Time: Aug 23, 2024 05:23 AM Reporting Lab: [facility] [address] Performing Lab: [facility] [address] GLUCOSE,BLOOD- poct (STL) 99 mg/dL 72-99 Aug 23, 2024 02:45 AM [facility] OCCULT BLOOD FIT X1 SCREEN Specimen Type: FECES No comment entered. Ordering Provider: SILIVA REDDY Report Released Date/Time: Aug 22, 2024 11:23 AM Reporting Lab: [address] [address] Performing Lab: [address] [address] OCCULT BLOOD (FIT) #1 OF 1 Negative Negative Aug 22, 2024 07:30 PM [facility] OCCULT BLOOD FIT X1 SCREEN Specimen Type: FECES No comment entered. Ordering Provider: SILVIA REDDY Report Released Date/Time: Aug 22, 2024 11:23 AM Reporting Lab: [address] [address] Performing Lab: [address] [address] OCCULT BLOOD (FIT) #1 OF 1 Negative Negative Aug 22, 2024 06:15 PM [facility] OCCULT BLOOD FIT X1 SCREEN Specimen Type: FECES No comment entered. Ordering Provider: SILVIA REDDY Report Released Date/Time: Aug 22, 2024 11:23 AM Reporting Lab: [address] [address] Performing Lab: [place] [address] [facility] [address] OCCULT BLOOD (FIT) #1 OF 1 Negative Negative Aug 22, 2024 04:24 PM [facility] GLUCOSE,BLOOD-poct (STL) Specimen Type: BLOOD Comment: Test Performed by: [id number] Meter #: [id number] Ordering Provider: SILVIA REDDY Report Released Date/Time: Aug 22, 2024 04:36 PM Reporting Lab: [facility] [address] Performing Lab: [facility] [address] GLUCOSE,BLOOD- poct (STL) 176 mg/dL H -Aug 22, 2024 04:23 PM [facility] GLUCOSE,BLOOD-poct (STL) Specimen Type: BLOOD Comment: Test Performed by: [id number] Meter #: [id number] Ordering Provider: SILVIA REDDY Report Released Date/Time: Aug 22, 2024 04:36 PM Reporting Lab: [facility] [address] Performing Lab: [facility] [address] GLUCOSE,BLOOD- poct (STL) 221 mg/dL H 72-Aug 22, 2024 11:15 AM [facility] GLUCOSE,BLOOD-poct (STL) Specimen Type: BLOOD Comment: Test Performed by: [id number] Meter #: [id number] Ordering Provider: SILVIA REDDY Report Released Date/Time: Aug 22, 2024 11:27 AM Reporting Lab: [facility] [address] Performing Lab: [facility] [address] GLUCOSE,BLOOD- poct (STL) 140 mg/dL H 72-Aug 22, 2024 08:[address] [facility] FERRITIN Specimen Type: SERUM No comment entered. Ordering Provider: JUDIT PERKINS Report Released Date/Time: Aug 18, 2024 11:01 AM Reporting Lab: [facility] [address] [facility] [address] Performing Lab: [facility] [address] [place] [address] FERRITIN 79.50 ng/mL 22-275 Aug 22, 2024 08:03 AM [facility] IRON/TIBC PROFILE Specimen Type: SERUM No comment entered. Ordering Provider: JUDIT PERKINS Report Released Date/Time: Aug 18, 2024 11:01 AM Reporting Lab: [address] [address] Performing Lab: [address] [address] TIBC 283 ug/dL 250-450 TRANSFERRIN 226 mg/dL 163-344 IRON SATURATION 7 L 20-50 IRON 19 ug/dL L 65-175 Aug 22, 2024 08:03 AM [facility] B12 Specimen Type: SERUM No comment entered. Ordering Provider: JUDIT PERKINS Report Released Date/Time: Aug 18, 2024 11:01 AM Reporting Lab: [facility] [address] Performing Lab: [facility] [address] B12 631 pg/mL 213-816 Aug 22, 2024 08:03 AM [facility] COMPREHENSIVE METABOLIC PANEL Specimen Type: PLASMA Comment: No hemolysis noted. Ordering Provider: SILVIA REDDY Report Released Date/Time: Aug 17, 2024 01:18 PM Reporting Lab: [facility] [address] [facility] [address] Performing Lab: [address] [address] CREATININE 0.80 mg/dL 0.7-1.3 UREA NITROGEN 9.7 [...] 2024 08:03 AM [facility] CBC Specimen Type: BLOOD No comment entered. Ordering Provider: SILVIA REDDY Report Released Date/Time: Aug 17, 2024 01:18 PM Reporting Lab: [facility] [address] Performing Lab: [facility] [address] WBC 3.5 10*3/uL L 3.6-11.2 RBC 3.23 [...] Specimen Type: BLOOD Comment: Test Performed by: [id number] Meter #: [id number] Ordering Provider: SILVIA REDDY Report Released Date/Time: Aug 22, 2024 06:17 AM Reporting Lab: [facility] [address] Performing Lab: [facility] [address] GLUCOSE,BLOOD- poct (STL) 170 mg/dL H 72-Aug 21, 2024 04:32 PM [facility] GLUCOSE,BLOOD-poct (STL) Specimen Type: BLOOD Comment: Test Performed by: [id number] Meter #: [id number] Ordering Provider: SILVIA REDDY Report Released Date/Time: Aug 21, 2024 04:49 PM Reporting Lab: [facility] [address] Performing Lab: [facility] [address] GLUCOSE,BLOOD- poct (STL) 169 mg/dL H -Aug 21, 2024 11:53 AM [facility] GLUCOSE,BLOOD-poct (STL) Specimen Type: BLOOD Comment: Test Performed by: [id number] Meter #: [id number] Ordering Provider: SILVIA REDDY Report Released Date/Time: Aug 21, 2024 12:11 PM Reporting Lab: [facility] [address] Performing Lab: [facility] [address] GLUCOSE,BLOOD- poct (STL) 149 mg/dL H 72-Aug 21, 2024 05:10 AM [facility] GLUCOSE,BLOOD-poct (STL) Specimen Type: BLOOD Comment: Test Performed by: [id number] Meter #: [id number] Ordering Provider: SILVIA REDDY Report Released Date/Time: Aug 21, 2024 05:27 AM Reporting Lab: [facility] [address] Performing Lab: [facility] [address] GLUCOSE,BLOOD- poct (STL) 118 mg/dL H 72-Aug 20, 2024 04:38 PM [facility] GLUCOSE,BLOOD-poct (STL) Specimen Type: BLOOD Comment: Test Performed by: [id number] Meter #: [id number] Ordering Provider: SILVIA REDDY Report Released Date/Time: Aug 21, 2024 01:55 AM Reporting Lab: [facility] [address] Performing Lab: [facility] [place] [address] GLUCOSE,BLOOD- poct (STL) 169 mg/dL H -Aug 20, 2024 04:36 PM [facility] GLUCOSE,BLOOD-poct (STL) Specimen Type: BLOOD Comment: Test Performed by: [id number] Meter #: [id number] Ordering Provider: SILVIA REDDY Report Released Date/Time: Aug 21, 2024 01:55 AM Reporting Lab: [facility] [address] Performing Lab: [facility] [address] GLUCOSE,BLOOD- poct (STL) 395 mg/dL H 72-Aug 20, 2024 11:45 AM [facility] GLUCOSE,BLOOD-poct (STL) Specimen Type: BLOOD Comment: Test Performed by: [id number] Meter #: [id number] Ordering Provider: SILVIA REDDY Report Released Date/Time: Aug 20, 2024 11:56 AM Reporting Lab: [facility] [place] [address] Performing Lab: [facility] [address] GLUCOSE,BLOOD- poct (STL) 169 mg/dL H -Aug 20, 2024 05:06 AM [facility] GLUCOSE,BLOOD-poct (STL) Specimen Type: BLOOD Comment: Test Performed by: [id number] Meter #: [id number] Ordering Provider: SILVIA REDDY Report Released Date/Time: Aug 20, 2024 06:05 AM Reporting Lab: [facility] [address] Performing Lab: [facility] [address] GLUCOSE,BLOOD- poct (STL) 115 mg/dL H -Aug 19, 2024 04:23 PM [facility] GLUCOSE,BLOOD-poct (STL) Specimen Type: BLOOD Comment: Test Performed by: [id number] Meter #: [id number] Ordering Provider: SILVIA REDDY Report Released Date/Time: Aug 19, 2024 05:54 PM Reporting Lab: [facility] [address] Performing Lab: [facility] [address] GLUCOSE,BLOOD- poct (STL) 137 mg/dL H -Aug 19, 2024 11:28 AM [facility] GLUCOSE,BLOOD-poct (STL) Specimen Type: BLOOD Comment: Test Performed by: [id number] Meter #: [id number] Ordering Provider: SILVIA REDDY Report Released Date/Time: Aug 19, 2024 11:51 AM Reporting Lab: [facility] [address] Performing Lab: [facility] [address] GLUCOSE,BLOOD- poct (STL) 190 mg/dL H Aug 19, 2024 05:21 AM [facility] GLUCOSE,BLOOD-poct (STL) Specimen Type: BLOOD Comment: Test Performed by: [id number] Meter #: [id number] Ordering Provider: SILVIA REDDY Report Released Date/Time: Aug 19, 2024 05:56 AM Reporting Lab: [facility] [address] Performing Lab: [facility] [address] GLUCOSE,BLOOD- poct (STL) 130 mg/dL H Aug 18, 2024 04:49 PM [facility] GLUCOSE,BLOOD-poct (STL) Specimen Type: BLOOD Comment: Test Performed by: [id number] Meter #: [id number] Ordering Provider: SILVIA REDDY Report Released Date/Time: Aug 18, 2024 05:01 PM Reporting Lab: [facility] [address] Performing Lab: [facility] [address] GLUCOSE,BLOOD- poct (STL) 129 mg/dL H Aug 18, 2024 11:23 AM [facility] GLUCOSE,BLOOD-poct (STL) Specimen Type: BLOOD Comment: Test Performed by: [id number] Meter #: [id number] Ordering Provider: SILVIA REDDY Report Released Date/Time: Aug 18, 2024 11:41 AM Reporting Lab: [facility] [address] Performing Lab: [facility] [address] GLUCOSE,BLOOD- poct (STL) 180 mg/dL H Aug 18, 2024 05:08 AM [facility] GLUCOSE,BLOOD-poct (STL) Specimen Type: BLOOD Comment: Test Performed by: [id number] Meter #: [id number] Ordering Provider: SILVIA REDDY Report Released Date/Time: Aug 18, 2024 05:31 AM Reporting Lab: [facility] [address] Performing Lab: [facility] [address] GLUCOSE,BLOOD- poct (STL) 127 mg/dL H -Aug 17, 2024 07:32 PM [facility] GLUCOSE,BLOOD-poct (STL) Specimen Type: BLOOD Comment: Test Performed by: [id number] Meter #: [id number] Ordering Provider: SILVIA REDDY Report Released Date/Time: Aug 17, 2024 07:59 PM Reporting Lab: [facility] [address] Performing Lab: [facility] [address] GLUCOSE,BLOOD- poct (STL) 154 mg/dL H -Aug 17, 2024 04:24 PM [facility] GLUCOSE,BLOOD-poct (STL) Specimen Type: BLOOD Comment: Test Performed by: [id number] Meter #: [id number] Ordering Provider: SILVIA REDDY Report Released Date/Time: Aug 17, 2024 04:35 PM Reporting Lab: [facility] [address] Performing Lab: [facility] [address] GLUCOSE,BLOOD- poct (STL) 178 mg/dL H -Aug 17, 2024 05:09 AM [facility] GLUCOSE,BLOOD-poct (STL) Specimen Type: BLOOD Comment: Test Performed by: [id number] Meter #: [id number] Ordering Provider: SILVIA REDDY Report Released Date/Time: Aug 17, 2024 05:54 AM Reporting Lab: [facility] [place] [address] Performing Lab: [facility] [address] GLUCOSE,BLOOD- poct (STL) 124 mg/dL H -Aug 16, 2024 07:40 PM [facility] GLUCOSE,BLOOD-poct (STL) Specimen Type: BLOOD Comment: Test Performed by: [id number] Meter #: [id number] Ordering Provider: SILVIA REDDY Report Released Date/Time: Aug 16, 2024 08:28 PM Reporting Lab: [facility] [address] Performing Lab: [facility] [address] GLUCOSE,BLOOD- poct (STL) 144 mg/dL H Aug 16, 2024 04:19 PM [facility] GLUCOSE,BLOOD-poct (STL) Specimen Type: BLOOD Comment: Test Performed by: [id number] Meter #: [id number] Ordering Provider: SILVIA REDDY Report Released Date/Time: Aug 16, 2024 04:45 PM Reporting Lab: [facility] [address] Performing Lab: [facility] [address] GLUCOSE,BLOOD- poct (STL) 138 mg/dL H Aug 16, 2024 11:52 AM [facility] GLUCOSE,BLOOD-poct (STL) Specimen Type: BLOOD Comment: Test Performed by: [id number] Meter #: [id number] Ordering Provider: SILVIA REDDY Report Released Date/Time: Aug 16, 2024 12:04 PM Reporting Lab: [facility] [address] Performing Lab: [facility] [address] GLUCOSE,BLOOD- poct (STL) 135 mg/dL H Aug 16, 2024 05:24 AM [facility] GLUCOSE,BLOOD-poct (STL) Specimen Type: BLOOD Comment: Test Performed by: [id number] Meter #: [id number] Ordering Provider: SILVIA REDDY Report Released Date/Time: Aug 16, 2024 05:38 AM Reporting Lab: [facility] [address] Performing Lab: [facility] [address] GLUCOSE,BLOOD- poct (STL) 151 mg/dL H Aug 15, 2024 07:31 PM [facility] GLUCOSE,BLOOD-poct (STL) Specimen Type: BLOOD Comment: Test Performed by: [id number] Meter #: [id number] Ordering Provider: SILVIA REDDY Report Released Date/Time: Aug 15, 2024 08:07 PM Reporting Lab: [facility] [address] Performing Lab: [facility] [address] GLUCOSE,BLOOD- poct (STL) 173 mg/dL H Aug 15, 2024 04:18 PM [facility] GLUCOSE,BLOOD-poct (STL) Specimen Type: BLOOD Comment: Test Performed by: [id number] Meter #: [id number] Ordering Provider: SILVIA REDDY Report Released Date/Time: Aug 15, 2024 04:59 PM Reporting Lab: [facility] [address] Performing Lab: [facility] [address] GLUCOSE,BLOOD- poct (STL) 136 mg/dL H Aug 15, 2024 04:16 PM [facility] GLUCOSE,BLOOD-poct (STL) Specimen Type: BLOOD Comment: Test Performed by: [id number] Meter #: [id number] Ordering Provider: SILVIA REDDY Report Released Date/Time: Aug 15, 2024 04:59 PM Reporting Lab: [facility] [address] Performing Lab: [facility] [address] GLUCOSE,BLOOD- poct (STL) 194 mg/dL H -Aug 15, 2024 11:39 AM [facility] GLUCOSE,BLOOD-poct (STL) Specimen Type: BLOOD Comment: Test Performed by: [id number] Meter #: [id number] Ordering Provider: SILVIA REDDY Report Released Date/Time: Aug 15, 2024 12:00 PM Reporting Lab: [facility] [address] Performing Lab: [facility] [address] GLUCOSE,BLOOD- poct (STL) 127 mg/dL H -Aug 15, 2024 05:07 AM [facility] GLUCOSE,BLOOD-poct (STL) Specimen Type: BLOOD Comment: Test Performed by: [id number] Meter #: [id number] Ordering Provider: SILVIA REDDY Report Released Date/Time: Aug 15, 2024 06:14 AM Reporting Lab: [facility] [address] Performing Lab: [facility] [address] GLUCOSE,BLOOD- poct (STL) 151 mg/dL H -Aug 14, 2024 04:22 PM [facility] GLUCOSE,BLOOD-poct (STL) Specimen Type: BLOOD Comment: Test Performed by: [id number] Meter #: [id number] Ordering Provider: SILVIA REDDY Report Released Date/Time: Aug 14, 2024 04:52 PM Reporting Lab: [facility] [address] [place] [address] Performing Lab: [facility] [facility] [address] GLUCOSE,BLOOD- poct (STL) 129 mg/dL H 72-99 Aug 14, 2024 11:21 AM [facility] GLUCOSE,BLOOD-poct (STL) Specimen Type: BLOOD Comment: Test Performed by: [id number] Meter #: [id number] Ordering Provider: SILVIA REDDY Report Released Date/Time: Aug 14, 2024 11:37 AM Reporting Lab: [facility] [facility] [address] Performing Lab: [facility] [facility] [address] GLUCOSE,BLOOD- poct (STL) 135 mg/dL H 72-99 Aug 14, 2024 06:59 AM [facility] [...] For additional information, please refer to http://education. iVilka/faq/MLD672 (This link is being provided for information/ educational purposes only.) Test Performed by [employer], [employer] [facility], [address] [place] [address] Tommie Garcia M.D., Ph.D., Director of Laboratories , [facility] [id number] Ordering Provider: SILVIA REDDY Report Released Date/Time: Aug 11, 2024 03:58 PM Reporting Lab: [facility] [address] [facility] [address] Performing Lab: [facility] [id number] [place] [id number] .NIL - QUANTIFERON 0.04 [IU]/mL .MITOGEN-NIL 0.39 [IU]/mL .QUANTIFERON INDETERMINATE NEGATIVE .TB1-NIL <0.00 [IU]/mL .TB2-NIL <0.00 [IU]/mL Aug 14, 2024 06:59 AM [facility] MAGNESIUM Specimen Type: PLASMA Comment: No hemolysis noted. Ordering Provider: SILVIA REDDY Report Released Date/Time: Aug 11, 2024 03:58 PM Reporting Lab: [facility] [facility] [address] Performing Lab: [facility] [facility] [address] MAGNESIUM 1.9 mg/dL 1.6-2.6 Aug 14, 2024 06:59 AM [facility] B12 Specimen Type: SERUM No comment entered. Ordering Provider: SILVIA REDDY Report Released Date/Time: Aug 11, 2024 03:58 PM Reporting Lab: [facility] [facility] [address] Performing Lab: [facility] [address] [facility] [address] B12 757 pg/mL [phone] Aug 14, 2024 06:59 AM [facility] FOLATE (STL-MA) Specimen Type: SERUM No comment entered. Ordering Provider: SILVIA REDDY Report Released Date/Time: Aug 11, 2024 03:58 PM Reporting Lab: [facility] [address] [facility] [address] Performing Lab: [facility] [facility] [address] FOLATE (STL-MA) 6.8 ng/mL L 7-20 Aug 14, 2024 06:59 AM [facility] VITAMIN D, 25-HYDROXY Specimen Type: SERUM No comment entered. Ordering Provider: SILVIA REDDY Report Released Date/Time: Aug 11, 2024 03:58 PM Reporting Lab: [facility] [address] Performing Lab: [facility] [address] VITAMIN D, 25-HYDROXY 8.9 ng/mL L 30-96 Aug 14, 2024 06:59 AM [facility] CBC Specimen Type: BLOOD No comment entered. Ordering Provider: SILVIA REDDY Report Released Date/Time: Aug 11, 2024 03:58 PM Reporting Lab: [facility] [address] Performing Lab: [facility] [address] WBC 4.1 10*3/uL 3.6-11.2 RBC 3.20 10*6/uL [...] Aug 11, 2024 03:58 PM Reporting Lab: [facility] [place] [phone] Performing Lab: [facility] [place] [phone] CREATININE 0.75 mg/dL 0.70-1.30 UREA NITROGEN 13.6 [...] Specimen Type: BLOOD Comment: Test Performed by: [id number] Meter #: [id number] Ordering Provider: SILVIA REDDY Report Released Date/Time: Aug 14, 2024 05:52 AM Reporting Lab: [facility] [address] Performing Lab: [facility] [address] GLUCOSE,BLOOD- poct (STL) 135 mg/dL H 72-99 Aug 13, 2024 04:27 PM [facility] GLUCOSE,BLOOD-poct (STL) Specimen Type: BLOOD Comment: Test Performed by: [id number] Meter #: [id number] Ordering Provider: SILVIA REDDY Report Released Date/Time: Aug 13, 2024 04:41 PM Reporting Lab: [facility] [address] Performing Lab: [facility] [address] GLUCOSE,BLOOD- poct (STL) 181 mg/dL H -Aug 13, 2024 11:33 AM [facility] GLUCOSE,BLOOD-poct (STL) Specimen Type: BLOOD Comment: Test Performed by: [id number] Meter #: [id number] Ordering Provider: SILVIA REDDY Report Released Date/Time: Aug 13, 2024 03:55 PM Reporting Lab: [facility] [address] Performing Lab: [facility] [place] [address] GLUCOSE,BLOOD- poct (STL) 140 mg/dL H Aug 13, 2024 05:54 AM [facility] GLUCOSE,BLOOD-poct (STL) Specimen Type: BLOOD Comment: Test Performed by: [id number] Meter #: [id number] Ordering Provider: SILVIA REDDY Report Released Date/Time: Aug 13, 2024 06:20 AM Reporting Lab: [facility] [address] Performing Lab: [facility] [address] GLUCOSE,BLOOD- poct (STL) 112 mg/dL H Aug 12, 2024 04:35 PM [facility] GLUCOSE,BLOOD-poct (STL) Specimen Type: BLOOD Comment: Test Performed by: [id number] Meter #: [id number] Ordering Provider: SILVIA REDDY Report Released Date/Time: Aug 12, 2024 04:47 PM Reporting Lab: [facility] [address] Performing Lab: [facility] [address] GLUCOSE,BLOOD- poct (STL) 128 mg/dL H 72-99 Aug 12, 2024 11:26 AM [facility] GLUCOSE,BLOOD-poct (STL) Specimen Type: BLOOD Comment: Test Performed by: [id number] Meter #: [id number] Ordering Provider: SILVIA REDDY Report Released Date/Time: Aug 12, 2024 11:45 AM Reporting Lab: [facility] [address] Performing Lab: [facility] [address] GLUCOSE,BLOOD- poct (STL) 188 mg/dL H 72-Aug 12, 2024 06:13 AM [facility] GLUCOSE,BLOOD-poct (STL) Specimen Type: BLOOD Comment: Test Performed by: [id number] Meter #: [id number] Ordering Provider: SILVIA REDDY Report Released Date/Time: Aug 12, 2024 06:25 AM Reporting Lab: [facility] [address] Performing Lab: [facility] [address] GLUCOSE,BLOOD- poct (STL) 116 mg/dL H 72-99 Aug 11, 2024 04:10 PM [facility] GLUCOSE,BLOOD-poct (STL) Specimen Type: BLOOD Comment: Test Performed by: [id number] Meter #: [id number] Ordering Provider: SILVIA REDDY Report Released Date/Time: Aug 11, 2024 04:27 PM Reporting Lab: [facility] [place] [address] Performing Lab: [facility] [place] [address] GLUCOSE,BLOOD- poct (STL) 184 mg/dL H 72-99 Aug 11, 2024 01:44 PM [facility] MRSA SURVL NARES DNA [...] Aug 11, 2024 02:03 PM Reporting Lab: [address] [address] Performing Lab: [address] [address] MRSA SURVL NARES DNA Negative Negative Vital Signs: All taken on the encounter date This section contains inpatient and outpatient Vital Signs collected on the date of the Encounter. Date/Time Temperature Pulse Blood Pressure Respiratory Rate SP02 Pain Height Weight Body Mass Index Source Aug 21, 2024 10:00 PM 0 [facility] Aug 21, 2024 07:09 PM 98.5 81 130/72 18 96 [facility] Aug 21, 2024 04:35 PM 71 138/70 [facility] Aug 21, 2024 10:00 AM 97.7 62 104/65 18 96 0 [facility] Aug 21, 2024 09:43 AM 0 [facility] Advance Directives: All [...] ADVANCE DIRECTIVE DISCUSSION ERICK BARDALES [facility]
--- OUTSIDE RECORDS SUMMARY | 2024-11-17 04:21 | XMS_ITS | Encounter Summary ---
Author Name [facility] [place] [facility] [place] [facility] [place] Address [address] [place] [address] Care Team Providers Care Industrial Order Clerk Name Role Phone MANUEL BAIRD Primary [...] PART A Apr 08, 2017 PART A [id number] ASHLEY WALKER PATIENT Selected Encounter This section includes the information on record at [place] for the Encounter. Date/Time Encounter Type Encounter Description Reason Provider Source Sep 12, 2024 02:30 PM Outpatient Encounter GENERAL INTERNAL MEDICINE ICD-10-CM G47.33 Obstructive sleep apnea (adult) (pediatric) JUDIT PERKINS Encounter Template Text not used by [place] Assessments - Encounter Diagnoses This section includes the primary and secondary diagnoses documented for the Encounter. Date/Time Primary/Secondary Diagnosis Diagnosis Name Provider Source Sep 12, 2024 02:47 PM PRIMARY Obstructive sleep apnea (adult) (pediatric) JUDIT PERKINS [facility] Sep 12, 2024 02:47 PM SECONDARY Infectious gastroenteritis and colitis, unspecified JUDIT PERKINS [facility] Plan of Treatment: Future Appointments (+ 6 months) and Future Tests (+/- 45 days) The Plan of Treatment section includes future care activities for the patient from all [place] [facility]. This section includes future appointments and future orders which are active, pending or scheduled. Future Appointments This section includes appointments that were scheduled to occur 6 months from the date of the Encounter, up to a maximum of 20 appointments. The data comes from all [facility]. Appointment Date/Time Appointment Type Appointme nt [...] AM AMBULATORY - SURGERY [facility] Nov 21, 2024 10:00 AM AMBULATORY - NONE [facility] Dec 11, 2024 10:30 AM AMBULATORY [...] of theEncounter. The data comes from all [facility]. Test Date/Time Test Type Test Details Facility Name Aug 02, 2024 12:00 AM Laboratory - Chemistry Order CBC BLOOD STAT SP [facility] Aug 02, 2024 12:00 AM Laboratory - Chemistry Order COMPREHENSIVE METABOLIC PANEL GREEN LI/HEP BLD/PLAS PLASMA SP [facility] Aug 17, 2024 03:47 PM Consult Order [facility] [...] Comment Aug 23, 2024 08:21 AM [facility] MAGNESIUM Specimen Type: PLASMA No comment entered. Ordering Provider: SILVIA REDDY Report Released Date/Time: Aug 22, 2024 11:26 AM Reporting Lab: [facility] [address] Performing Lab: [facility] [address] MAGNESIUM 1.8 mg/dL 1.6-2.6 Aug 23, 2024 08:21 AM [facility] CBC Specimen Type: BLOOD No comment entered. Ordering Provider: SILVIA REDDY Report Released Date/Time: Aug 22, 2024 11:19 AM Reporting Lab: [facility] [address] Performing Lab: [facility] [address] WBC 4.0 10*3/uL 3.6-11.2 RBC 3.65 10*6/uL [...] 0.00-0.20 Aug 23, 2024 05:12 AM [facility] GLUCOSE,BLOOD-poct (STL) Specimen Type: BLOOD Comment: Test Performed by: [id number] Meter #: [id number] Ordering Provider: SILVIA REDDY Report Released Date/Time: Aug 23, 2024 05:23 AM Reporting Lab: [facility] [address] Performing Lab: [facility] [facility] [address] GLUCOSE,BLOOD-p oct (STL) 99 mg/dL 72-99 Aug 23, 2024 02:45 AM [facility] OCCULT BLOOD FIT X1 SCREEN Specimen Type: FECES No comment entered. Ordering Provider: SILVIA REDDY Report Released Date/Time: Aug 22, 2024 11:23 AM Reporting Lab: [facility] [address] [facility] [place] [place] [address] Performing Lab: [address] [address] OCCULT BLOOD (FIT) #1 OF 1 Negative Negative Aug 22, 2024 07:30 PM [facility] OCCULT BLOOD FIT X1 SCREEN Specimen Type: FECES No comment entered. Ordering Provider: SILVIA REDDY Report Released Date/Time: Aug 22, 2024 11:23 AM Reporting Lab: [facility] [address] [facility] [place] [address] Performing Lab: [address] [address] OCCULT BLOOD (FIT) #1 OF 1 Negative Negative Aug 22, 2024 06:15 PM [facility] OCCULT BLOOD FIT X1 SCREEN Specimen Type: FECES No comment entered. Ordering Provider: SILVIA REDDY Report Released Date/Time: Aug 22, 2024 11:23 AM Reporting Lab: [facility] [address] [facility] [place] [address] Performing Lab: [address] [address] OCCULT BLOOD (FIT) #1 OF 1 Negative Negative Aug 22, 2024 04:24 PM [facility] GLUCOSE,BLOOD-poct (STL) Specimen Type: BLOOD Comment: Test Performed by: [id number] Meter #: [id number] Ordering Provider: SILVIA REDDY Report Released Date/Time: Aug 22, 2024 04:36 PM Reporting Lab: [facility] [address] Performing Lab: [facility] [address] [place] [phone] GLUCOSE,BLOOD-p oct (STL) 176 mg/dL H 72-99 Aug 22, 2024 04:23 PM [facility] GLUCOSE,BLOOD-poct (STL) Specimen Type: BLOOD Comment: Test Performed by: [id number] Meter #: [id number] Ordering Provider: SILVIA REDDY Report Released Date/Time: Aug 22, 2024 04:36 PM Reporting Lab: [facility] [address] Performing Lab: [facility] [address] GLUCOSE,BLOOD-p oct (STL) 221 mg/dL H 72-99 Aug 22, 2024 11:15 AM [facility] GLUCOSE,BLOOD-poct (STL) Specimen Type: BLOOD Comment: Test Performed by: [id number] Meter #: [id number] Ordering Provider: SILVIA REDDY Report Released Date/Time: Aug 22, 2024 11:27 AM Reporting Lab: [facility] [address] Performing Lab: [facility] [facility] [address] GLUCOSE,BLOOD-p oct (STL) 140 mg/dL H 72-99 Aug 22, 2024 08:03 AM [facility] FERRITIN Specimen Type: SERUM No comment entered. Ordering Provider: JUDIT PERKINS Report Released Date/Time: Aug 18, 2024 11:01 AM Reporting Lab: [facility] [address] [facility] [address] Performing Lab: [facility] [address] [facility] [address] FERRITIN 79.50 ng/mL 22-275 Aug 22, 2024 08:03 AM [facility] IRON/TIBC PROFILE Specimen Type: SERUM No comment entered. Ordering Provider: JUDIT PERKINS Report Released Date/Time: Aug 18, 2024 11:01 AM Reporting Lab: [facility] [address] [facility] [address] Performing Lab: [facility] [address] [facility] [address] TIBC 283 ug/dL 250-450 TRANSFERRIN 226 mg/dL 163-344 IRON SATURATION 7 L 20-50 IRON 19 ug/dL L 65-175 Aug 22, 2024 08:03 AM [facility] B12 Specimen Type: SERUM No comment entered. Ordering Provider: JUDIT PERKINS Report Released Date/Time: Aug 18, 2024 11:01 AM Reporting Lab: [facility] [address] Performing Lab: [facility] [facility] [address] B12 631 pg/mL 213-816 Aug 22, 2024 08:03 AM [facility] COMPREHENSIVE METABOLIC PANEL Specimen Type: PLASMA Comment: No hemolysis noted. Ordering Provider: SILVIA REDDY Report Released Date/Time: Aug 17, 2024 01:18 PM Reporting Lab: [facility] [address] [facility] [address] Performing Lab: [facility] [address] [facility] [address] CREATININE 0.80 mg/dL 0.7-1.3 UREA NITROGEN 9.7 [...] 94.0 >60 Aug 22, 2024 08:03 AM [facility] CBC Specimen Type: BLOOD No comment entered. Ordering Provider: SILVIA REDDY Report Released Date/Time: Aug 17, 2024 01:18 PM Reporting Lab: [facility] [facility] [address] Performing Lab: [facility] [facility] [address] WBC 3.5 10*3/uL L 3.6-11.2 RBC 3.23 [...] 0 Aug 22, 2024 05:03 AM [facility] GLUCOSE,BLOOD-poct (STL) Specimen Type: BLOOD Comment: Test Performed by: [id number] Meter #: [id number] Ordering Provider: SILVIA REDDY Report Released Date/Time: Aug 22, 2024 06:17 AM Reporting Lab: [facility] [address] [facility] [address] Performing Lab: [facility] [place] [address] GLUCOSE,BLOOD-p oct (STL) 170 mg/dL H -Aug 21, 2024 04:32 PM [facility] GLUCOSE,BLOOD-poct (STL) Specimen Type: BLOOD Comment: Test Performed by: [id number] Meter #: [id number] Ordering Provider: SILVIA REDDY Report Released Date/Time: Aug 21, 2024 04:49 PM Reporting Lab: [facility] [address] [facility] [address] Performing Lab: [facility] [address] [facility] [address] GLUCOSE,BLOOD-p oct (STL) 169 mg/dL H -Aug 21, 2024 11:53 AM [facility] GLUCOSE,BLOOD-poct (STL) Specimen Type: BLOOD Comment: Test Performed by: [id number] Meter #: [id number] Ordering Provider: SILVIA REDDY Report Released Date/Time: Aug 21, 2024 12:11 PM Reporting Lab: [facility] [address] [facility] [address] Performing Lab: [facility] [address] [facility] [address] GLUCOSE,BLOOD-p oct (STL) 149 mg/dL H 72-Aug 21, 2024 05:10 AM [facility] GLUCOSE,BLOOD-poct (STL) Specimen Type: BLOOD Comment: Test Performed by: [id number] Meter #: [id number] Ordering Provider: SILVIA REDDY Report Released Date/Time: Aug 21, 2024 05:27 AM Reporting Lab: [facility] [address] [facility] [address] Performing Lab: [facility] [address] GLUCOSE,BLOOD-p oct (STL) 118 mg/dL H 72-Aug 20, 2024 04:38 PM [facility] GLUCOSE,BLOOD-poct (STL) Specimen Type: BLOOD Comment: Test Performed by: [id number] Meter #: [id number] Ordering Provider: SILVIA REDDY Report Released Date/Time: Aug 21, 2024 01:55 AM Reporting Lab: [facility] [address] [facility] [address] Performing Lab: [facility] [address] GLUCOSE,BLOOD-p oct (STL) 169 mg/dL H -Aug 20, 2024 04:36 PM [facility] GLUCOSE,BLOOD-poct (STL) Specimen Type: BLOOD Comment: Test Performed by: [id number] Meter #: [id number] Ordering Provider: SILVIA REDDY Report Released Date/Time: Aug 21, 2024 01:55 AM Reporting Lab: [facility] [address] [facility] [address] Performing Lab: [facility] [address] [facility] [address] GLUCOSE,BLOOD-p oct (STL) 395 mg/dL H 72-Aug 20, 2024 11:45 AM [facility] GLUCOSE,BLOOD-poct (STL) Specimen Type: BLOOD Comment: Test Performed by: [id number] Meter #: [id number] Ordering Provider: SILVIA REDDY Report Released Date/Time: Aug 20, 2024 11:56 AM Reporting Lab: [facility] [facility] [address] Performing Lab: [facility] [address] [facility] [address] GLUCOSE,BLOOD-p oct (STL) 169 mg/dL H 72-99 Aug 20, 2024 05:06 AM [facility] GLUCOSE,BLOOD-poct (STL) Specimen Type: BLOOD Comment: Test Performed by: [id number] Meter #: [id number] Ordering Provider: SILVIA REDDY Report Released Date/Time: Aug 20, 2024 06:05 AM Reporting Lab: [facility] [facility] [address] Performing Lab: [facility] [address] [facility] [address] GLUCOSE,BLOOD-p oct (STL) 115 mg/dL H 72-99 Aug 19, 2024 04:23 PM [facility] GLUCOSE,BLOOD-poct (STL) Specimen Type: BLOOD Comment: Test Performed by: [id number] Meter #: [id number] Ordering Provider: SILVIA REDDY Report Released Date/Time: Aug 19, 2024 05:54 PM Reporting Lab: [facility] [facility] [address] Performing Lab: [facility] [facility] [address] GLUCOSE,BLOOD-p oct (STL) 137 mg/dL H 72-99 Aug 19, 2024 11:28 AM [facility] GLUCOSE,BLOOD-poct (STL) Specimen Type: BLOOD Comment: Test Performed by: [id number] Meter #: [id number] Ordering Provider: SILVIA REDDY Report Released Date/Time: Aug 19, 2024 11:51 AM Reporting Lab: [facility] [address] [facility] [address] Performing Lab: [facility] [facility] [address] GLUCOSE,BLOOD-p oct (STL) 190 mg/dL H Aug 19, 2024 05:21 AM [facility] GLUCOSE,BLOOD-poct (STL) Specimen Type: BLOOD Comment: Test Performed by: [id number] Meter #: [id number] Ordering Provider: SILVIA REDDY Report Released Date/Time: Aug 19, 2024 05:56 AM Reporting Lab: [facility] [facility] [address] Performing Lab: [facility] [address] [facility] [address] GLUCOSE,BLOOD-p oct (STL) 130 mg/dL H Aug 18, 2024 04:49 PM [facility] GLUCOSE,BLOOD-poct (STL) Specimen Type: BLOOD Comment: Test Performed by: [id number] Meter #: [id number] Ordering Provider: SILVIA REDDY Report Released Date/Time: Aug 18, 2024 05:01 PM Reporting Lab: [facility] [facility] [address] Performing Lab: [facility] [facility] [address] GLUCOSE,BLOOD-p oct (STL) 129 mg/dL H Aug 18, 2024 11:23 AM [facility] GLUCOSE,BLOOD-poct (STL) Specimen Type: BLOOD Comment: Test Performed by: [id number] Meter #: [id number] Ordering Provider: SILVIA REDDY Report Released Date/Time: Aug 18, 2024 11:41 AM Reporting Lab: [facility] [address] Performing Lab: [facility] [address] [facility] [address] GLUCOSE,BLOOD-p oct (STL) 180 mg/dL H Aug 18, 2024 05:08 AM [facility] GLUCOSE,BLOOD-poct (STL) Specimen Type: BLOOD Comment: Test Performed by: [id number] Meter #: [id number] Ordering Provider: SILVIA REDDY Report Released Date/Time: Aug 18, 2024 05:31 AM Reporting Lab: [facility] [address] [facility] [address] Performing Lab: [facility] [address] GLUCOSE,BLOOD-p oct (STL) 127 mg/dL H -Aug 17, 2024 07:32 PM [facility] GLUCOSE,BLOOD-poct (STL) Specimen Type: BLOOD Comment: Test Performed by: [id number] Meter #: [id number] Ordering Provider: SILVIA REDDY Report Released Date/Time: Aug 17, 2024 07:59 PM Reporting Lab: [facility] [address] [facility] [address] Performing Lab: [facility] [address] GLUCOSE,BLOOD-p oct (STL) 154 mg/dL H -Aug 17, 2024 04:24 PM [facility] GLUCOSE,BLOOD-poct (STL) Specimen Type: BLOOD Comment: Test Performed by: [id number] Meter #: [id number] Ordering Provider: SILVIA REDDY Report Released Date/Time: Aug 17, 2024 04:35 PM Reporting Lab: [facility] [facility] [address] Performing Lab: [facility] [address] [facility] [address] GLUCOSE,BLOOD-p oct (STL) 178 mg/dL H -Aug 17, 2024 05:09 AM [facility] GLUCOSE,BLOOD-poct (STL) Specimen Type: BLOOD Comment: Test Performed by: [id number] Meter #: [id number] Ordering Provider: SILVIA REDDY Report Released Date/Time: Aug 17, 2024 05:54 AM Reporting Lab: [facility] [address] Performing Lab: [facility] [address] [facility] [address] GLUCOSE,BLOOD-p oct (STL) 124 mg/dL H 72-Aug 16, 2024 07:40 PM [facility] GLUCOSE,BLOOD-poct (STL) Specimen Type: BLOOD Comment: Test Performed by: [id number] Meter #: [id number] Ordering Provider: SILVIA REDDY Report Released Date/Time: Aug 16, 2024 08:28 PM Reporting Lab: [facility] [address] Performing Lab: [facility] [facility] [address] GLUCOSE,BLOOD-p oct (STL) 144 mg/dL H -Aug 16, 2024 04:19 PM [facility] GLUCOSE,BLOOD-poct (STL) Specimen Type: BLOOD Comment: Test Performed by: [id number] Meter #: [id number] Ordering Provider: SILVIA REDDY Report Released Date/Time: Aug 16, 2024 04:45 PM Reporting Lab: [facility] [address] Performing Lab: [facility] [facility] [address] GLUCOSE,BLOOD-p oct (STL) 138 mg/dL H 72-Aug 16, 2024 11:52 AM [facility] GLUCOSE,BLOOD-poct (STL) Specimen Type: BLOOD Comment: Test Performed by: [id number] Meter #: [id number] Ordering Provider: SILVIA REDDY Report Released Date/Time: Aug 16, 2024 12:04 PM Reporting Lab: [facility] [facility] [address] Performing Lab: [facility] [address] GLUCOSE,BLOOD-p oct (STL) 135 mg/dL H Aug 16, 2024 05:24 AM [facility] GLUCOSE,BLOOD-poct (STL) Specimen Type: BLOOD Comment: Test Performed by: [id number] Meter #: [id number] Ordering Provider: SILVIA REDDY Report Released Date/Time: Aug 16, 2024 05:38 AM Reporting Lab: [facility] [facility] [address] Performing Lab: [facility] [facility] [address] GLUCOSE,BLOOD-p oct (STL) 151 mg/dL H Aug 15, 2024 07:31 PM [facility] GLUCOSE,BLOOD-poct (STL) Specimen Type: BLOOD Comment: Test Performed by: [id number] Meter #: [id number] Ordering Provider: SILVIA REDDY Report Released Date/Time: Aug 15, 2024 08:07 PM Reporting Lab: [facility] [address] Performing Lab: [facility] [address] GLUCOSE,BLOOD-p oct (STL) 173 mg/dL H Aug 15, 2024 04:18 PM [facility] GLUCOSE,BLOOD-poct (STL) Specimen Type: BLOOD Comment: Test Performed by: [id number] Meter #: [id number] Ordering Provider: SILVIA REDDY Report Released Date/Time: Aug 15, 2024 04:59 PM Reporting Lab: [facility] [address] Performing Lab: [facility] [facility] [address] GLUCOSE,BLOOD-p oct (STL) 136 mg/dL H Aug 15, 2024 04:16 PM [facility] GLUCOSE,BLOOD-poct (STL) Specimen Type: BLOOD Comment: Test Performed by: [id number] Meter #: [id number] Ordering Provider: SILVIA REDDY Report Released Date/Time: Aug 15, 2024 04:59 PM Reporting Lab: [facility] [facility] [address] Performing Lab: [facility] [address] GLUCOSE,BLOOD-p oct (STL) 194 mg/dL H -Aug 15, 2024 11:39 AM [facility] GLUCOSE,BLOOD-poct (STL) Specimen Type: BLOOD Comment: Test Performed by: [id number] Meter #: [id number] Ordering Provider: SILVIA REDDY Report Released Date/Time: Aug 15, 2024 12:00 PM Reporting Lab: [facility] [address] Performing Lab: [facility] [address] GLUCOSE,BLOOD-p oct (STL) 127 mg/dL H -Aug 15, 2024 05:07 AM [facility] GLUCOSE,BLOOD-poct (STL) Specimen Type: BLOOD Comment: Test Performed by: [id number] Meter #: [id number] Ordering Provider: SILVIA REDDY Report Released Date/Time: Aug 15, 2024 06:14 AM Reporting Lab: [facility] [facility] [address] Performing Lab: [facility] [facility] [address] GLUCOSE,BLOOD-p oct (STL) 151 mg/dL H -Aug 14, 2024 04:22 PM [facility] GLUCOSE,BLOOD-poct (STL) Specimen Type: BLOOD Comment: Test Performed by: [id number] Meter #: [id number] Ordering Provider: SILVIA REDDY Report Released Date/Time: Aug 14, 2024 04:52 PM Reporting Lab: [facility] [address] Performing Lab: [facility] [address] GLUCOSE,BLOOD-p oct (STL) 129 mg/dL H 72-99 Aug 14, 2024 11:21 AM [facility] GLUCOSE,BLOOD-poct (STL) Specimen Type: BLOOD Comment: Test Performed by: [id number] Meter #: [id number] Ordering Provider: SILVIA REDDY Report Released Date/Time: Aug 14, 2024 11:37 AM Reporting Lab: [facility] [address] Performing Lab: [facility] [facility] [address] GLUCOSE,BLOOD-p oct (STL) 135 mg/dL H 72-99 Aug 14, [...] Antigen tube is coated with the M. tuberculosis-sp ecific antigens designed to elicit responses from TB antigen primed CD4+ helper T-lymphocytes. The TB2 Antigen tube is coated with the M. tuberculosis-sp ecific antigens designed to elicit responses from TB antigen primed CD4+ helper and CD8+ cytotoxic T-lymphocytes. For additional information, please refer to http://educatio n.[employer].com/faq/FAQ 204 (This link is being provided for information/ educational purposes only.) Test Performed by [facility], [employer] [place], [address] [place], [place] Tommie Garcia M.D., Ph.D., Director of Laboratories , [facility] [id number] Ordering Provider: SILVIA REDDY Report Released Date/Time: Aug 11, 2024 03:58 PM Reporting Lab: [facility] [address] [facility] [place] [address] Performing Lab: [facility] [address] [place] [employer] .NIL - QUANTIFERON 0.04 [IU]/mL .MITOGEN-NIL 0.39 [IU]/mL .QUANTIFERON INDETERMINATE NEGATIVE .TB1-NIL <0.00 [IU]/mL .TB2-NIL <0.00 [IU]/mL Aug 14, 2024 06:59 AM [facility] MAGNESIUM Specimen Type: PLASMA Comment: No hemolysis noted. Ordering Provider: SILVIA REDDY Report Released Date/Time: Aug 11, 2024 03:58 PM Reporting Lab: [facility] [address] Performing Lab: [facility] [address] MAGNESIUM 1.9 mg/dL 1.6-2.6 Aug 14, 2024 06:59 AM [facility] B12 Specimen Type: SERUM No comment entered. Ordering Provider: SILVIA REDDY Report Released Date/Time: Aug 11, 2024 03:58 PM Reporting Lab: [facility] [address] Performing Lab: [facility] [place] [id number] B12 757 pg/mL 213-816 Aug 14, 2024 06:59 AM [facility] VITAMIN D, 25-HYDROXY Specimen Type: SERUM No comment entered. Ordering Provider: SILVIA REDDY Report Released Date/Time: Aug 11, 2024 03:58 PM Reporting Lab: [facility] [place] [phone] Performing Lab: [facility] [place] [phone] VITAMIN D, 25-HYDROXY 8.9 ng/mL L 30-96 Aug 14, 2024 06:59 AM [facility] Specimen Type: SERUM No comment entered. Ordering Provider: SILVIA REDDY Report Released Date/Time: Aug 11, 2024 03:58 PM Reporting Lab: [facility] [place] [address] Performing Lab: [facility] [place] [address] [facility] ([facility] 6.8 ng/mL L 7-20 Aug 14, 2024 06:59 AM [facility] COMPREHENSIVE METABOLIC PANEL Specimen Type: PLASMA Comment: No hemolysis noted. Ordering Provider: SILVIA REDDY Report Released Date/Time: Aug 11, 2024 03:58 PM Reporting Lab: [facility] [place] [address] Performing Lab: [facility] [place] [address] CREATININE 0.75 mg/dL 0.70-1.30 UREA NITROGEN 13.6 [...] >60 Aug 14, 2024 06:59 AM [facility] CBC Specimen Type: BLOOD No comment entered. Ordering Provider: SILVIA REDDY Report Released Date/Time: Aug 11, 2024 03:58 PM Reporting Lab: [facility] [facility] [id number] Performing Lab: [facility] [facility] [id number] WBC 4.1 10*3/uL 3.6-11.2 RBC 3.20 10*6/uL [...] 10*3/uL 0.00-0.20 Aug 14, 2024 05:08 AM [facility] GLUCOSE,BLOOD-poct (STL) Specimen Type: BLOOD Comment: Test Performed by: [id number] Meter #: [id number] Ordering Provider: SILVIA REDDY Report Released Date/Time: Aug 14, 2024 05:52 AM Reporting Lab: [facility] [facility] [id number] Performing Lab: [facility] [address] [facility] [id number] GLUCOSE,BLOOD-p oct (STL) 135 mg/dL H 72-99 Advance Directives: All historical and current Section [...] 19, 2017 ADVANCE DIRECTIVE DISCUSSION ERICK BARDALES [facility] Encounter Notes: All associated encounter notes This section contains the clinical notes associated to the Encounter. Date/Time Encounter Note(s) Provider Source Sep 12, 2024 02:31 PM [facility] NOT E: LOCAL TITLE: [facility] NOTE [facility] STANDARD TITLE: [facility]RNA[facility] NOTE DATE OF NOTE: SEP 12, 2024@14:31 ENTRY DATE: SEP 12, 2024@14:31:24 AUTHOR: JUDIT PERKINS EXP COSIGNER: URGENCY: STATUS: COMPLETED That her on a 74-year-old male who was just treated at [facility] after CABG, he was discharged on August 23. He was admitted to [facility] on September 08 with weakness and dizziness. Patient had laparoscopic cholecystectomy at [facility] 1 week prior. Patient declined discharge to rehab afterwards. At the hospital his potassium was 6, AST 85, white count 14.9, hemoglobin 10.1, BNP 541, chest x-ray with pulmonary congestion, CT abdomen pelvis bile duct stent in C2, with hepatic cirrhosis and small volume ascites, mild to moderate diffuse colonic bowel wall thickening possible colitis. Started on Rocephin/Flagyl, bicarb and IV fluids. AICD, low EF 26%, CAD, history of CVA,. Device interrogation had no underlying arrhythmia. Patient had elevated troponins, so due to demand ischemia. 11 had multiple episodes of diarrhea and able to tolerate oral fluids. Awaiting podiatry for acute foot pain or. White count 9.3. Hypokalemia. PT rec rehab. Will f/up on those med issues. /shen/ JUDIT PERKINS PHYSICIAN CHHAYA Signed: 09/12/2024 14:47 Receipt Acknowledged By: 09/14/2024 12:20 /shen/ PETAR RAINES MSN, PHD RN REGISTERED NURSE JUDIT PERKINS [facility]
--- OUTSIDE RECORDS SUMMARY | 2024-11-17 04:21 | XMS_ITS | Encounter Summary ---
Author Name [facility] Organization [facility] Address [address] [place] [address] Care Team Providers Care Linemarker Name Role Phone MANUEL BAIRD Primary Care [...] PART A Apr 08, 2017 PART A [id number] [phone] ASHLEY WALKER PATIENT Selected Encounter This section includes the information on record at [place] for the Encounter. Date/Time Encounter Type Encounter Description Reason Pro vider Source Sep 11, 2024 03:45 PM Outpatient Encounter ADMIN PAT ACTIVTIES (MASNONCT) IHE Encounter Template Text not used by [place] [...] 22, 2024 11:00 AM AMBULATORY - MEDICINE [facility] Sep 29, 2024 12:30 PM AMBULATORY - MEDICINE [facility] Oct 02, 2024 09:30 AM AMBULATORY - MEDICINE [facility] Nov 20, 2024 10:30 AM AMBULATORY - SURGERY [facility] Nov 21, 2024 10:00 AM AMBULATORY - NONE . [facility] Dec 11, 2024 10:30 AM [...] - Chemistry Order CBC BLOOD STAT [facility] Aug 02, 2024 12:00 AM Laboratory - Chemistry Order COMPREHENSIVE METABOLIC PANEL GREEN LI/HEP BLD/PLAS PLASMA SP [facility] Aug 17, 2024 03:47 PM Consult Order [facility] Cons Bedside THREE [...] Lab: [facility] [address] Performing Lab[facility] [address] MAGNESIUM 1.8 mg/dL 1.6-2.6 Aug 23, 2024 08:21 AM [facility] CBC Specimen Type: BLOOD No comment entered. Ordering Provider: SILVIA REDDY Report Released Date/Time: Aug 22, 2024 11:19 AM Reporting Lab: [facility] [address] Performing Lab: [facility] [address] WBC 4.0 10*3/uL 3.6-11.2 RBC 3.65 10*6/uL [...] 10*3/uL 0.00-0.20 Aug 23, 2024 05:12 AM [facility] GLUCOSE,BLOOD-poct (STL) Specimen Type: BLOOD Comment: Test Performed by: [id number] Meter #: [id number] Ordering Provider: SILVIA REDDY Report Released Date/Time: Aug 23, 2024 05:23 AM Reporting Lab: [facility] [address] Performing Lab: [facility] [address] GLUCOSE,BLOOD-p oct (STL) 99 mg/dL 72-99 Aug 23, 2024 02:45 AM [facility] OCCULT BLOOD FIT X1 SCREEN Specimen Type: FECES No comment entered. Ordering Provider: SILVIA REDDY Report Released Date/Time: Aug 22, 2024 11:23 AM Reporting Lab: [address] [address] Performing Lab: [address] [address] OCCULT BLOOD (FIT) #1 OF 1 Negative Negative Aug 22, 2024 07:30 PM [facility] OCCULT BLOOD FIT X1 SCREEN Specimen Type: FECES No comment entered. Ordering Provider: SILVIA REDDY Report Released Date/Time: Aug 22, 2024 11:23 AM Reporting Lab: [address] [address] Performing Lab: [address] [address] OCCULT BLOOD (FIT) #1 OF 1 Negative Negative Aug 22, 2024 06:15 PM [facility] OCCULT BLOOD FIT X1 SCREEN Specimen Type: FECES No comment entered. Ordering Provider: SILVIA REDDY Report Released Date/Time: Aug 22, 2024 11:23 AM Reporting Lab: [address] [address] Performing Lab: [address] [address] OCCULT BLOOD (FIT) #1 OF 1 Negative Negative Aug 22, 2024 04:24 PM [facility] GLUCOSE,BLOOD-poct (STL) Specimen Type: BLOOD Comment: Test Performed by: [id number] Meter #: [id number] Ordering Provider: SILVIA REDDY Report Released Date/Time: Aug 22, 2024 04:36 PM Reporting Lab: [facility] [address] Performing Lab: [facility] [address] GLUCOSE,BLOOD-p oct (STL) 176 mg/dL H 72-99 Aug 22, 2024 04:23 PM [facility] GLUCOSE,BLOOD-poct (STL) Specimen Type: BLOOD Comment: Test Performed by: [id number] Meter #: [id number] Ordering Provider: SILVIA REDDY Report Released Date/Time: Aug 22, 2024 04:36 PM Reporting Lab: [facility] [address] Performing Lab: [facility] [address] GLUCOSE,BLOOD-p oct (STL) 221 mg/dL H 72-Aug 22, 2024 11:15 AM [facility] GLUCOSE,BLOOD-poct (STL) Specimen Type: BLOOD Comment: Test Performed by: [id number] Meter #: [id number] Ordering Provider: SILVIA REDDY Report Released Date/Time: Aug 22, 2024 11:27 AM Reporting Lab: [facility] [address] Performing Lab: [facility] [address] GLUCOSE,BLOOD-p oct (STL) 140 mg/dL H 72-99 Aug 22, 2024 08:03 AM [facility] FERRITIN Specimen Type: SERUM No comment entered. Ordering Provider: JUDIT PERKINS Report Released Date/Time: Aug 18, 2024 11:01 AM Reporting Lab: [address] [address] Performing Lab: [place] [id number] [facility] [address] FERRITIN 79.50 ng/mL 22-275 Aug 22, 2024 08:03 AM [facility] IRON/TIBC PROFILE Specimen Type: SERUM No comment entered. Ordering Provider: JUDIT PERKINS Report Released Date/Time: Aug 18, 2024 11:01 AM Reporting Lab: [facility] [address] [place] [address] Performing Lab: [facility] [address] [place] [address] TIBC 283 ug/dL 250-450 TRANSFERRIN 226 mg/dL 163-344 IRON SATURATION 7 L 20-50 IRON 19 ug/dL L 65-175 Aug 22, 2024 08:03 AM [facility] B12 Specimen Type: SERUM No comment entered. Ordering Provider: JUDIT PERKINS Report Released Date/Time: Aug 18, 2024 11:01 AM Reporting Lab: [facility] [address] Performing Lab: [facility] [address] B12 631 pg/mL 213-816 Aug 22, 2024 08:03 AM [facility] COMPREHENSIVE METABOLIC PANEL Specimen Type: PLASMA Comment: No hemolysis noted. Ordering Provider: SILVIA REDDY Report Released Date/Time: Aug 17, 2024 01:18 PM Reporting Lab: [facility] [address] [place] [address] Performing Lab: [facility] [address] [place] [address] CREATININE 0.80 mg/dL 0.7-1.3 UREA NITROGEN 9.7 [...] Lab: [facility] [address] Performing Lab: [facility] [address] WBC 3.5 10*3/uL L 3.6-11.2 RBC 3.23 [...] NRBC% 0 Aug 22, 2024 05:03 AM [facility] GLUCOSE,BLOOD-poct (STL) Specimen Type: BLOOD Comment: Test Performed by: [id number] Meter #: [id number] Ordering Provider: SILVIA REDDY Report Released Date/Time: Aug 22, 2024 06:17 AM Reporting Lab: [facility] [address] Performing Lab: [facility] [address] GLUCOSE,BLOOD-p oct (STL) 170 mg/dL H 72-99 Aug 21, 2024 04:32 PM [facility] GLUCOSE,BLOOD-poct (STL) Specimen Type: BLOOD Comment: Test Performed by: [id number] Meter #: [id number] Ordering Provider: SILVIA REDDY Report Released Date/Time: Aug 21, 2024 04:49 PM Reporting Lab: [facility] [address] Performing Lab: [facility] [address] GLUCOSE,BLOOD-p oct (STL) 169 mg/dL H 72-99 Aug 21, 2024 11:53 AM [facility] GLUCOSE,BLOOD-poct (STL) Specimen Type: BLOOD Comment: Test Performed by: [id number] Meter #: [id number] Ordering Provider: SILVIA REDDY Report Released Date/Time: Aug 21, 2024 12:11 PM Reporting Lab: [facility] [address] Performing Lab: [facility] [address] GLUCOSE,BLOOD-p oct (STL) 149 mg/dL H 72-99 Aug 21, 2024 05:10 AM [facility] GLUCOSE,BLOOD-poct (STL) Specimen Type: BLOOD Comment: Test Performed by: [id number] Meter #: [id number] Ordering Provider: SILVIA REDDY Report Released Date/Time: Aug 21, 2024 05:27 AM Reporting Lab: [facility] [address] Performing Lab: [facility] [address] GLUCOSE,BLOOD-p oct (STL) 118 mg/dL H -Aug 20, 2024 04:38 PM [facility] GLUCOSE,BLOOD-poct (STL) Specimen Type: BLOOD Comment: Test Performed by: [id number] Meter #: [id number] Ordering Provider: SILVIA REDDY Report Released Date/Time: Aug 21, 2024 01:55 AM Reporting Lab: [facility] [address] Performing Lab: [facility] [address] GLUCOSE,BLOOD-p oct (STL) 169 mg/dL H -Aug 20, 2024 04:36 PM [facility] GLUCOSE,BLOOD-poct (STL) Specimen Type: BLOOD Comment: Test Performed by: [id number] Meter #: [id number] Ordering Provider: SILVIA REDDY Report Released Date/Time: Aug 21, 2024 01:55 AM Reporting Lab: [facility] [address] Performing Lab: [facility] [address] GLUCOSE,BLOOD-p oct (STL) 395 mg/dL H -Aug 20, 2024 11:45 AM [facility] GLUCOSE,BLOOD-poct (STL) Specimen Type: BLOOD Comment: Test Performed by: [id number] Meter #: [id number] Ordering Provider: SILVIA REDDY Report Released Date/Time: Aug 20, 2024 11:56 AM Reporting Lab: [facility] [address] Performing Lab: [facility] [address] GLUCOSE,BLOOD-p oct (STL) 169 mg/dL H -Aug 20, 2024 05:06 AM [facility] GLUCOSE,BLOOD-poct (STL) Specimen Type: BLOOD Comment: Test Performed by: [id number] Meter #: [id number] Ordering Provider: SILVIA REDDY Report Released Date/Time: Aug 20, 2024 06:05 AM Reporting Lab: [facility] [address] Performing Lab: [facility] [address] GLUCOSE,BLOOD-p oct (STL) 115 mg/dL H -Aug 19, 2024 04:23 PM [facility] GLUCOSE,BLOOD-poct (STL) Specimen Type: BLOOD Comment: Test Performed by: [id number] Meter #: [id number] Ordering Provider: SILVIA REDDY Report Released Date/Time: Aug 19, 2024 05:54 PM Reporting Lab: [facility] [address] Performing Lab: [facility] [address] GLUCOSE,BLOOD-p oct (STL) 137 mg/dL H -Aug 19, 2024 11:28 AM [facility] GLUCOSE,BLOOD-poct (STL) Specimen Type: BLOOD Comment: Test Performed by: [id number] Meter #: [id number] Ordering Provider: SILVIA REDDY Report Released Date/Time: Aug 19, 2024 11:51 AM Reporting Lab: [facility] [address] Performing Lab: [facility] [address] GLUCOSE,BLOOD-p oct (STL) 190 mg/dL H -Aug 19, 2024 05:21 AM [facility] GLUCOSE,BLOOD-poct (STL) Specimen Type: BLOOD Comment: Test Performed by: [id number] Meter #: [id number] Ordering Provider: SILVIA REDDY Report Released Date/Time: Aug 19, 2024 05:56 AM Reporting Lab: [facility] [address] Performing Lab: [facility] [address] GLUCOSE,BLOOD-p oct (STL) 130 mg/dL H 72-Aug 18, 2024 04:49 PM [facility] GLUCOSE,BLOOD-poct (STL) Specimen Type: BLOOD Comment: Test Performed by: [id number] Meter #: [id number] Ordering Provider: SILVIA REDDY Report Released Date/Time: Aug 18, 2024 05:01 PM Reporting Lab: [facility] [address] Performing Lab: [facility] [address] GLUCOSE,BLOOD-p oct (STL) 129 mg/dL H -Aug 18, 2024 11:23 AM [facility] GLUCOSE,BLOOD-poct (STL) Specimen Type: BLOOD Comment: Test Performed by: [id number] Meter #: [id number] Ordering Provider: SILVIA REDDY Report Released Date/Time: Aug 18, 2024 11:41 AM Reporting Lab: [facility] [address] Performing Lab: [facility] [address] GLUCOSE,BLOOD-p oct (STL) 180 mg/dL H -Aug 18, 2024 05:08 AM [facility] GLUCOSE,BLOOD-poct (STL) Specimen Type: BLOOD Comment: Test Performed by: [id number] Meter #: [id number] Ordering Provider: SILVIA REDDY Report Released Date/Time: Aug 18, 2024 05:31 AM Reporting Lab: [facility] [address] Performing Lab: [facility] [address] GLUCOSE,BLOOD-p oct (STL) 127 mg/dL H -Aug 17, 2024 07:32 PM [facility] GLUCOSE,BLOOD-poct (STL) Specimen Type: BLOOD Comment: Test Performed by: [id number] Meter #: [id number] Ordering Provider: SILVIA REDDY Report Released Date/Time: Aug 17, 2024 07:59 PM Reporting Lab: [facility] [address] Performing Lab: [facility] [address] GLUCOSE,BLOOD-p oct (STL) 154 mg/dL H Aug 17, 2024 04:24 PM [facility] GLUCOSE,BLOOD-poct (STL) Specimen Type: BLOOD Comment: Test Performed by: [id number] Meter #: [id number] Ordering Provider: SILVIA REDDY Report Released Date/Time: Aug 17, 2024 04:35 PM Reporting Lab: [facility] [address] Performing Lab: [facility] [address] GLUCOSE,BLOOD-p oct (STL) 178 mg/dL H -Aug 17, 2024 05:09 AM [facility] GLUCOSE,BLOOD-poct (STL) Specimen Type: BLOOD Comment: Test Performed by: [id number] Meter #: [id number] Ordering Provider: SILVIA REDDY Report Released Date/Time: Aug 17, 2024 05:54 AM Reporting Lab: [facility] [address] Performing Lab: [facility] [address] GLUCOSE,BLOOD-p oct (STL) 124 mg/dL H Aug 16, 2024 07:40 PM [facility] GLUCOSE,BLOOD-poct (STL) Specimen Type: BLOOD Comment: Test Performed by: [id number] Meter #: [id number] Ordering Provider: SILVIA REDDY Report Released Date/Time: Aug 16, 2024 08:28 PM Reporting Lab: [facility] [address] Performing Lab: [facility] [address] GLUCOSE,BLOOD-p oct (STL) 144 mg/dL H Aug 16, 2024 04:19 PM [facility] GLUCOSE,BLOOD-poct (STL) Specimen Type: BLOOD Comment: Test Performed by: [id number] Meter #: [id number] Ordering Provider: SILVIA REDDY Report Released Date/Time: Aug 16, 2024 04:45 PM Reporting Lab: [facility] [address] Performing Lab: [facility] [address] GLUCOSE,BLOOD-p oct (STL) 138 mg/dL H Aug 16, 2024 11:52 AM [facility] GLUCOSE,BLOOD-poct (STL) Specimen Type: BLOOD Comment: Test Performed by: [id number] Meter #: [id number] Ordering Provider: SILVIA REDDY Report Released Date/Time: Aug 16, 2024 12:04 PM Reporting Lab: [facility] [address] Performing Lab: [facility] [address] GLUCOSE,BLOOD-p oct (STL) 135 mg/dL H Aug 16, 2024 05:24 AM [facility] GLUCOSE,BLOOD-poct (STL) Specimen Type: BLOOD Comment: Test Performed by: [id number] Meter #: [id number] Ordering Provider: SILVIA REDDY Report Released Date/Time: Aug 16, 2024 05:38 AM Reporting Lab: [facility] [address] Performing Lab: [facility] [address] GLUCOSE,BLOOD-p oct (STL) 151 mg/dL H 72-Aug 15, 2024 07:31 PM [facility] GLUCOSE,BLOOD-poct (STL) Specimen Type: BLOOD Comment: Test Performed by: [id number] Meter #: [id number] Ordering Provider: SILVIA REDDY Report Released Date/Time: Aug 15, 2024 08:07 PM Reporting Lab: [facility] [address] Performing Lab: [facility] [address] GLUCOSE,BLOOD-p oct (STL) 173 mg/dL H -Aug 15, 2024 04:18 PM [facility] GLUCOSE,BLOOD-poct (STL) Specimen Type: BLOOD Comment: Test Performed by: [id number] Meter #: [id number] Ordering Provider: SILVIA REDDY Report Released Date/Time: Aug 15, 2024 04:59 PM Reporting Lab: [facility] [address] Performing Lab: [facility] [address] GLUCOSE,BLOOD-p oct (STL) 136 mg/dL H 72-Aug 15, 2024 04:16 PM [facility] GLUCOSE,BLOOD-poct (STL) Specimen Type: BLOOD Comment: Test Performed by: [id number] Meter #: [id number] Ordering Provider: SILVIA REDDY Report Released Date/Time: Aug 15, 2024 04:59 PM Reporting Lab: [facility] [address] Performing Lab: [facility] [address] GLUCOSE,BLOOD-p oct (STL) 194 mg/dL H -Aug 15, 2024 11:39 AM [facility] GLUCOSE,BLOOD-poct (STL) Specimen Type: BLOOD Comment: Test Performed by: [id number] Meter #: [id number] Ordering Provider: SILVIA REDDY Report Released Date/Time: Aug 15, 2024 12:00 PM Reporting Lab: [facility] [address] Performing Lab: [facility] [address] GLUCOSE,BLOOD-p oct (STL) 127 mg/dL H Aug 15, 2024 05:07 AM [facility] GLUCOSE,BLOOD-poct (STL) Specimen Type: BLOOD Comment: Test Performed by: [id number] Meter #: [id number] Ordering Provider: SILVIA REDDY Report Released Date/Time: Aug 15, 2024 06:14 AM Reporting Lab: [facility] [address] Performing Lab: [facility] [address] GLUCOSE,BLOOD-p oct (STL) 151 mg/dL H Aug 14, 2024 04:22 PM [facility] GLUCOSE,BLOOD-poct (STL) Specimen Type: BLOOD Comment: Test Performed by: [id number] Meter #: [id number] Ordering Provider: SILVIA REDDY Report Released Date/Time: Aug 14, 2024 04:52 PM Reporting Lab: [facility] [address] Performing Lab: [facility] [address] GLUCOSE,BLOOD-p oct (STL) 129 mg/dL H Aug 14, 2024 11:[address] [facility] GLUCOSE,BLOOD-poct (STL) Specimen Type: BLOOD Comment: Test Performed by: [id number] Meter #: [id number] Ordering Provider: SILVIA REDDY Report Released Date/Time: Aug 14, 2024 11:37 AM Reporting Lab: [facility] [address] Performing Lab: [facility] [address] GLUCOSE,BLOOD-p oct (STL) 135 mg/dL H 72-99 Aug 14, 2024 06:59 AM [facility] QUANTIFERON-TB,4 TUBE Specimen Type: BLOOD Comment: [...] For additional information, please refer to [email or web address] [email or web address]/faq/[email or web address] (This link is being provided for information/ educational purposes only.) Test Performed by [employer], [facility], [address] [place], [place] Tommie Garcia M.D., Ph.D., Director of Laboratories , JENNIFERIA [id number] Ordering Provider: SILVIA REDDY Report Released Date/Time: Aug 11, 2024 03:58 PM Reporting Lab: [facility] [address] [place] [address] Performing Lab: [facility] [address] [facility] .NIL - QUANTIFERON 0.04 [IU]/mL .MITOGEN-NIL 0.39 [IU]/mL .QUANTIFERON INDETERMINATE NEGATIVE .TB1-NIL <0.00 [IU]/mL .TB2-NIL <0.00 [IU]/mL Aug 14, 2024 06:59 AM [facility] MAGNESIUM Specimen Type: PLASMA Comment: No hemolysis noted. Ordering Provider: SILVIA REDDY Report Released Date/Time: Aug 11, 2024 03:58 PM Reporting Lab: [facility] [place] [address] Performing Lab: [facility] [address] MAGNESIUM 1.9 mg/dL 1.6-2.6 Aug 14, 2024 06:59 AM [facility] VITAMIN D, 25-HYDROXY Specimen Type: SERUM No comment entered. Ordering Provider: SILVIA REDDY Report Released Date/Time: Aug 11, 2024 03:58 PM Reporting Lab: [facility] [place] [address] Performing Lab: [facility] [address] VITAMIN D, 25-HYDROXY 8.9 ng/mL L 30-96 Aug 14, 2024 06:59 AM [facility] B12 Specimen Type: SERUM No comment entered. Ordering Provider: SILVIA REDDY Report Released Date/Time: Aug 11, 2024 03:58 PM Reporting Lab: [facility] [address] Performing Lab: [facility] [place] [address] B12 757 pg/mL 213-816 Aug 14, 2024 06:59 AM [facility] FOLATE (STL-MA) Specimen Type: SERUM No comment entered. Ordering Provider: SILVIA REDDY Report Released Date/Time: Aug 11, 2024 03:58 PM Reporting Lab: [facility] [place] [phone] Performing Lab: [facility] [id number] FOLATE ([facility]-[place]) 6.8 ng/mL L 7-20 Aug 14, 2024 06:59 AM [facility] CBC Specimen Type: BLOOD No comment entered. Ordering Provider: SILVIA REDDY Report Released Date/Time: Aug 11, 2024 03:58 PM Reporting Lab: [facility] [place] [phone] Performing Lab: [facility] [place] [phone] WBC 4.1 10*3/uL 3.6-11.2 RBC 3.20 10*6/uL [...] Lab: [facility] [address] Performing Lab: [facility] [phone] CREATININE 0.75 mg/dL 0.70-1.30 UREA NITROGEN 13.6 [...] Specimen Type: BLOOD Comment: Test Performed by: [id number] Meter #: [id number] Ordering Provider: SILVIA REDDY Report Released Date/Time: Aug 14, 2024 05:52 AM Reporting Lab: [facility] [phone] Performing Lab: [facility] [phone] GLUCOSE,BLOOD-p oct (STL) 135 mg/dL H 72-99 Aug 13, 2024 04:27 PM [facility] GLUCOSE,BLOOD-poct (STL) Specimen Type: BLOOD Comment: Test Performed by: [id number] Meter #: [id number] Ordering Provider: SILVIA REDDY Report Released Date/Time: Aug 13, 2024 04:41 PM Reporting Lab: [facility] [phone] Performing Lab: [facility] [phone] GLUCOSE,BLOOD-p oct (STL) 181 mg/dL H 72-99 Aug 13, 2024 11:33 AM [facility] GLUCOSE,BLOOD-poct (STL) Specimen Type: BLOOD Comment: Test Performed by: [id number] Meter #: [id number] Ordering Provider: SILVIA REDDY Report Released Date/Time: Aug 13, 2024 03:55 PM Reporting Lab: [facility] [id number] Performing Lab: [facility] [id number] GLUCOSE,BLOOD-p oct (STL) 140 mg/dL H 72-99 Aug 13, 2024 05:54 AM [facility] GLUCOSE,BLOOD-poct (STL) Specimen Type: BLOOD Comment: Test Performed by: [id number] Meter #: [id number] Ordering Provider: SILVIA REDDY Report Released Date/Time: Aug 13, 2024 06:20 AM Reporting Lab: [facility] [id number] Performing Lab: [facility] [id number] GLUCOSE,BLOOD-p oct (STL) 112 mg/dL H 72-99 Social History: Smoking Status [...] 10:34 AM QUIT TOBACCO >7 YEARS AGO [facility] Tobacco Use History This section includes a history of the smoking, or tobacco-related health factors, that were collected on or before the date of the Encounter. The data comes from the [place] facility where the [place] took place. Date/Time Smoking Status/Tobacco Use Comment F acility Sep 30, 2015 10:12 AM QUIT TOBACCO >7 YEARS AGO [facility] Oct 29, 2014 10:23 AM QUIT TOBACCO >7 YEARS AGO [facility] Dec 27, 2013 01:27 PM QUIT TOBACCO >7 YEARS AGO [facility] Feb 24, 2013 02:01 PM LIFETIME NON-USER OF TOBACCO [facility] Feb 11, 2009 10:09 AM QUIT TOBACCO >7 YEARS AGO [facility] Oct 06, 2006 09:30 AM CURRENT NON-TOBACC O USER-HX OF USE [facility] Oct 06, 2006 09:30 AM TOBACCO TERMINATION STAGE [facility] Advance Directives: All historical and current [...] ADVANCE DIRECTIVE DISCUSSION ERICK BARDALES [facility] Encounter Notes: All associated encounter notes This section contains the clinical notes associated to the Encounter. Date/Time Encounter Note(s) Provider Source Sep 11, 2024 03:45 PM ADMINISTRATIVE NOT E: LOCAL TITLE: ADMINISTRATIVE STL STANDARD TITLE: ADMINISTRATIVE NOTE DATE OF NOTE: SEP 11, 2024@15:45 ENTRY DATE: SEP 11, 2024@15:45:20 AUTHOR: VINAY GOEL EXP COSIGNER: URGENCY: STATUS: COMPLETED RECEIVED HEALTHARE LAB NOTES FROM [facility] VIA MAIL ON [id number].WILL PLACE IN PROVIDER FOLDER. /shen/ VINAY GOEL AMSA Signed: 09/11/2024 15:46 VINAY GOLE [facility]
--- OUTSIDE RECORDS SUMMARY | 2024-11-17 04:21 | XMS_ITS ---
Author Name [facility] Organization [facility] Address [address] [place] [address] Care Team Providers Care Spinning Doffer Name Role Phone MANUEL BAIRD Primary Care [...] PART A Apr 08, 2017 PART A [id number] [phone] ASHLEY WALKER PATIENT Selected Encounter This section includes the information on record at [place] for the Encounter. Date/Time Encounter Type Encounter Description Reason Pro vider Source Sep 07, 2024 03:35 PM Outpatient Encounter ADMIN PAT ACTIVTIES (MASNONCT) [...] 22, 2024 11:00 AM AMBULATORY - MEDICINE [facility] Sep 29, 2024 12:30 PM AMBULATORY - MEDICINE [facility] Oct 02, 2024 09:30 AM AMBULATORY - MEDICINE [facility] Nov 20, 2024 10:30 AM AMBULATORY - SURGERY [facility] Nov 21, 2024 10:00 AM AMBULATORY - NONE . [facility] Dec 11, 2024 10:30 AM AMBULATORY - MEDICINE [facility] Active, Pending, and [...] METABOLIC PANEL GREEN LI/HEP BLD/PLAS PLASMA SP [facility] Aug 17, 2024 03:47 PM Consult Order [facility] Cons Bedside [facility] Lab Results: +/- [...] Aug 22, 2024 11:26 AM Reporting Lab: [facility] [address] Performing Lab: [facility] [address] MAGNESIUM 1.8 mg/dL 1.6-2.6 Aug 23, 2024 08:21 AM [facility] CBC Specimen Type: BLOOD No comment entered. Ordering Provider: SILVIA REDDY Report Released Date/Time: Aug 22, 2024 11:19 AM Reporting Lab: [facility] [address] Performing Lab: [facility] [address] WBC 4.0 10*3/uL 3.6-11.2 RBC 3.65 10*6/uL [...] 10*3/uL 0.00-0.20 Aug 23, 2024 05:12 AM [facility] GLUCOSE,BLOOD-poct (STL) Specimen Type: BLOOD Comment: Test Performed by: [id number] Meter #: [id number] Ordering Provider: SILVIA REDDY Report Released Date/Time: Aug 23, 2024 05:23 AM Reporting Lab: [facility] [address] Performing Lab: [facility] [address] GLUCOSE,BLOOD- poct (STL) 99 mg/dL 72-99 Aug 23, 2024 02:45 AM [facility] OCCULT BLOOD FIT X1 SCREEN Specimen Type: FECES No comment entered. Ordering Provider: SILVIA REDDY Report Released Date/Time: Aug 22, 2024 11:23 AM Reporting Lab: [address] [address] Performing Lab: [address] [address] OCCULT BLOOD (FIT) #1 OF 1 Negative Negative Aug 22, 2024 07:30 PM [facility] OCCULT BLOOD FIT X1 SCREEN Specimen Type: FECES No comment entered. Ordering Provider: SILVIA REDDY Report Released Date/Time: Aug 22, 2024 11:23 AM Reporting Lab: [address] [address] Performing Lab: [address] [address] OCCULT BLOOD (FIT) #1 OF 1 Negative Negative Aug 22, 2024 06:15 PM [facility] OCCULT BLOOD FIT X1 SCREEN Specimen Type: FECES No comment entered. Ordering Provider: SILVIA REDDY Report Released Date/Time: Aug 22, 2024 11:23 AM Reporting Lab: [address] [address] Performing Lab: [address] [address] OCCULT BLOOD (FIT) #1 OF 1 Negative Negative Aug 22, 2024 04:24 PM [facility] GLUCOSE,BLOOD-poct (STL) Specimen Type: BLOOD Comment: Test Performed by: [id number] Meter #: [id number] Ordering Provider: SILVIA REDDY Report Released Date/Time: Aug 22, 2024 04:36 PM Reporting Lab: [facility] [address] Performing Lab: [facility] [address] GLUCOSE,BLOOD- poct (STL) 176 mg/dL H 72-99 Aug 22, 2024 04:23 PM [facility] GLUCOSE,BLOOD-poct (STL) Specimen Type: BLOOD Comment: Test Performed by: [id number] Meter #: [id number] Ordering Provider: SILVIA REDDY Report Released Date/Time: Aug 22, 2024 04:36 PM Reporting Lab: [facility] [address] Performing Lab: [facility] [address] GLUCOSE,BLOOD- poct (STL) 221 mg/dL H 72-99 Aug 22, 2024 11:15 AM [facility] GLUCOSE,BLOOD-poct (STL) Specimen Type: BLOOD Comment: Test Performed by: [id number] Meter #: [id number] Ordering Provider: SILVIA REDDY Report Released Date/Time: Aug 22, 2024 11:27 AM Reporting Lab: [facility] [address] Performing Lab: [facility] [address] GLUCOSE,BLOOD- poct (STL) 140 mg/dL H 72-99 Aug 22, 2024 08:03 AM [facility] FERRITIN Specimen Type: SERUM No comment entered. Ordering Provider: JUDIT PERKINS Report Released Date/Time: Aug 18, 2024 11:01 AM Reporting Lab: [address] [address] Performing Lab: [facility] [address] [facility] [address] FERRITIN 79.50 ng/mL 22-275 Aug 22, 2024 08:03 AM [facility] IRON/TIBC PROFILE Specimen Type: SERUM No comment entered. Ordering Provider: JUDIT PERKINS Report Released Date/Time: Aug 18, 2024 11:01 AM Reporting Lab: [facility] [address] [place] [address] Performing Lab: [facility] [address] [place] [address] TIBC 283 ug/dL 250-450 TRANSFERRIN 226 mg/dL 163-344 IRON SATURATION 7 L 20-50 IRON 19 ug/dL L 65-175 Aug 22, 2024 08:03 AM [facility] B12 Specimen Type: SERUM No comment entered. Ordering Provider: JUDIT PERKINS Report Released Date/Time: Aug 18, 2024 11:01 AM Reporting Lab: [facility] [address] Performing Lab: [facility] [address] B12 631 pg/mL 213-816 Aug 22, 2024 08:03 AM [facility] COMPREHENSIVE METABOLIC PANEL Specimen Type: PLASMA Comment: No hemolysis noted. Ordering Provider: SILVIA REDDY Report Released Date/Time: Aug 17, 2024 01:18 PM Reporting Lab: [facility] [address] [place] [address] Performing Lab: [facility] [address] [place] [address] CREATININE 0.80 mg/dL 0.7-1.3 UREA NITROGEN 9.7 [...] 94.0 >60 Aug 22, 2024 08:03 AM [facility] CBC Specimen Type: BLOOD No comment entered. Ordering Provider: SILVIA REDDY Report Released Date/Time: Aug 17, 2024 01:18 PM Reporting Lab: [facility] [address] Performing Lab: [facility] [address] WBC 3.5 10*3/uL L 3.6-11.2 RBC 3.23 [...] NRBC% 0 Aug 22, 2024 05:03 AM [facility] GLUCOSE,BLOOD-poct (STL) Specimen Type: BLOOD Comment: Test Performed by: [id number] Meter #: [id number] Ordering Provider: SILVIA REDDY Report Released Date/Time: Aug 22, 2024 06:17 AM Reporting Lab: [facility] [address] Performing Lab: [facility] [address] GLUCOSE,BLOOD- poct (STL) 170 mg/dL H 72-99 Aug 21, 2024 04:32 PM [facility] GLUCOSE,BLOOD-poct (STL) Specimen Type: BLOOD Comment: Test Performed by: [id number] Meter #: [id number] Ordering Provider: SILVIA REDDY Report Released Date/Time: Aug 21, 2024 04:49 PM Reporting Lab: [facility] [address] Performing Lab: [facility] [address] GLUCOSE,BLOOD- poct (STL) 169 mg/dL H 72-99 Aug 21, 2024 11:53 AM [facility] GLUCOSE,BLOOD-poct (STL) Specimen Type: BLOOD Comment: Test Performed by: [id number] Meter #: [id number] Ordering Provider: SILVIA REDDY Report Released Date/Time: Aug 21, 2024 12:11 PM Reporting Lab: [facility] [address] Performing Lab: [facility] [address] GLUCOSE,BLOOD- poct (STL) 149 mg/dL H 72-99 Aug 21, 2024 05:10 AM [facility] GLUCOSE,BLOOD-poct (STL) Specimen Type: BLOOD Comment: Test Performed by: [id number] Meter #: [id number] Ordering Provider: SILVIA REDDY Report Released Date/Time: Aug 21, 2024 05:27 AM Reporting Lab: [facility] [address] Performing Lab: [facility] [address] GLUCOSE,BLOOD- poct (STL) 118 mg/dL H -Aug 20, 2024 04:38 PM [facility] GLUCOSE,BLOOD-poct (STL) Specimen Type: BLOOD Comment: Test Performed by: [id number] Meter #: [id number] Ordering Provider: SILVIA REDDY Report Released Date/Time: Aug 21, 2024 01:55 AM Reporting Lab: [facility] [address] Performing Lab: [facility] [address] GLUCOSE,BLOOD- poct (STL) 169 mg/dL H -Aug 20, 2024 04:36 PM [facility] GLUCOSE,BLOOD-poct (STL) Specimen Type: BLOOD Comment: Test Performed by: [id number] Meter #: [id number] Ordering Provider: SILVIA REDDY Report Released Date/Time: Aug 21, 2024 01:55 AM Reporting Lab: [facility] [address] Performing Lab: [facility] [address] GLUCOSE,BLOOD- poct (STL) 395 mg/dL H -Aug 20, 2024 11:45 AM [facility] GLUCOSE,BLOOD-poct (STL) Specimen Type: BLOOD Comment: Test Performed by: [id number] Meter #: [id number] Ordering Provider: SILVIA REDDY Report Released Date/Time: Aug 20, 2024 11:56 AM Reporting Lab: [facility] [address] Performing Lab: [facility] [address] GLUCOSE,BLOOD- poct (STL) 169 mg/dL H -Aug 20, 2024 05:06 AM [facility] GLUCOSE,BLOOD-poct (STL) Specimen Type: BLOOD Comment: Test Performed by: [id number] Meter #: [id number] Ordering Provider: SILVIA REDDY Report Released Date/Time: Aug 20, 2024 06:05 AM Reporting Lab: [facility] [address] Performing Lab: [facility] [address] GLUCOSE,BLOOD- poct (STL) 115 mg/dL H 72-Aug 19, 2024 04:23 PM [facility] GLUCOSE,BLOOD-poct (STL) Specimen Type: BLOOD Comment: Test Performed by: [id number] Meter #: [id number] Ordering Provider: SILVIA REDDY Report Released Date/Time: Aug 19, 2024 05:54 PM Reporting Lab: [facility] [address] Performing Lab: [facility] [address] GLUCOSE,BLOOD- poct (STL) 137 mg/dL H -Aug 19, 2024 11:28 AM [facility] GLUCOSE,BLOOD-poct (STL) Specimen Type: BLOOD Comment: Test Performed by: [id number] Meter #: [id number] Ordering Provider: SILVIA REDDY Report Released Date/Time: Aug 19, 2024 11:51 AM Reporting Lab: [facility] [address] Performing Lab: [facility] [address] GLUCOSE,BLOOD- poct (STL) 190 mg/dL H -Aug 19, 2024 05:21 AM [facility] GLUCOSE,BLOOD-poct (STL) Specimen Type: BLOOD Comment: Test Performed by: [id number] Meter #: [id number] Ordering Provider: SILVIA REDDY Report Released Date/Time: Aug 19, 2024 05:56 AM Reporting Lab: [facility] [address] Performing Lab: [facility] [address] GLUCOSE,BLOOD- poct (STL) 130 mg/dL H 72-Aug 18, 2024 04:49 PM [facility] GLUCOSE,BLOOD-poct (STL) Specimen Type: BLOOD Comment: Test Performed by: [id number] Meter #: [id number] Ordering Provider: SILVIA REDDY Report Released Date/Time: Aug 18, 2024 05:01 PM Reporting Lab: [facility] [address] Performing Lab: [facility] [address] GLUCOSE,BLOOD- poct (STL) 129 mg/dL H -Aug 18, 2024 11:23 AM [facility] GLUCOSE,BLOOD-poct (STL) Specimen Type: BLOOD Comment: Test Performed by: [id number] Meter #: [id number] Ordering Provider: SILVIA REDDY Report Released Date/Time: Aug 18, 2024 11:41 AM Reporting Lab: [facility] [address] Performing Lab: [facility] [address] GLUCOSE,BLOOD- poct (STL) 180 mg/dL H 72-Aug 18, 2024 05:08 AM [facility] GLUCOSE,BLOOD-poct (STL) Specimen Type: BLOOD Comment: Test Performed by: [id number] Meter #: [id number] Ordering Provider: SILVIA REDDY Report Released Date/Time: Aug 18, 2024 05:31 AM Reporting Lab: [facility] [address] Performing Lab: [facility] [address] GLUCOSE,BLOOD- poct (STL) 127 mg/dL H -Aug 17, 2024 07:32 PM [facility] GLUCOSE,BLOOD-poct (STL) Specimen Type: BLOOD Comment: Test Performed by: [id number] Meter #: [id number] Ordering Provider: SILVIA REDDY Report Released Date/Time: Aug 17, 2024 07:59 PM Reporting Lab: [facility] [address] Performing Lab: [facility] [address] GLUCOSE,BLOOD- poct (STL) 154 mg/dL H -Aug 17, 2024 04:24 PM [facility] GLUCOSE,BLOOD-poct (STL) Specimen Type: BLOOD Comment: Test Performed by: [id number] Meter #: [id number] Ordering Provider: SILVIA REDDY Report Released Date/Time: Aug 17, 2024 04:35 PM Reporting Lab: [facility] [address] Performing Lab: [facility] [address] GLUCOSE,BLOOD- poct (STL) 178 mg/dL H -Aug 17, 2024 05:09 AM [facility] GLUCOSE,BLOOD-poct (STL) Specimen Type: BLOOD Comment: Test Performed by: [id number] Meter #: [id number] Ordering Provider: SILVIA REDDY Report Released Date/Time: Aug 17, 2024 05:54 AM Reporting Lab: [facility] [address] Performing Lab: [facility] [address] GLUCOSE,BLOOD- poct (STL) 124 mg/dL H Aug 16, 2024 07:40 PM [facility] GLUCOSE,BLOOD-poct (STL) Specimen Type: BLOOD Comment: Test Performed by: [id number] Meter #: [id number] Ordering Provider: SILVIA REDDY Report Released Date/Time: Aug 16, 2024 08:28 PM Reporting Lab: [facility] [address] Performing Lab: [facility] [address] GLUCOSE,BLOOD- poct (STL) 144 mg/dL H Aug 16, 2024 04:19 PM [facility] GLUCOSE,BLOOD-poct (STL) Specimen Type: BLOOD Comment: Test Performed by: [id number] Meter #: [id number] Ordering Provider: SILVIA REDDY Report Released Date/Time: Aug 16, 2024 04:45 PM Reporting Lab: [facility] [address] Performing Lab: [facility] [address] GLUCOSE,BLOOD- poct (STL) 138 mg/dL H Aug 16, 2024 11:52 AM [facility] GLUCOSE,BLOOD-poct (STL) Specimen Type: BLOOD Comment: Test Performed by: [id number] Meter #: [id number] Ordering Provider: SILVIA REDDY Report Released Date/Time: Aug 16, 2024 12:04 PM Reporting Lab: [facility] [address] Performing Lab: [facility] [address] GLUCOSE,BLOOD- poct (STL) 135 mg/dL H Aug 16, 2024 05:24 AM [facility] GLUCOSE,BLOOD-poct (STL) Specimen Type: BLOOD Comment: Test Performed by: [id number] Meter #: [id number] Ordering Provider: SILVIA REDDY Report Released Date/Time: Aug 16, 2024 05:38 AM Reporting Lab: [facility] [address] Performing Lab: [facility] [address] GLUCOSE,BLOOD- poct (STL) 151 mg/dL H 72-Aug 15, 2024 07:31 PM [facility] GLUCOSE,BLOOD-poct (STL) Specimen Type: BLOOD Comment: Test Performed by: [id number] Meter #: [id number] Ordering Provider: SILVIA REDDY Report Released Date/Time: Aug 15, 2024 08:07 PM Reporting Lab: [facility] [address] Performing Lab: [facility] [address] GLUCOSE,BLOOD- poct (STL) 173 mg/dL H -Aug 15, 2024 04:18 PM [facility] GLUCOSE,BLOOD-poct (STL) Specimen Type: BLOOD Comment: Test Performed by: [id number] Meter #: [id number] Ordering Provider: SILVIA REDDY Report Released Date/Time: Aug 15, 2024 04:59 PM Reporting Lab: [facility] [address] Performing Lab: [facility] [address] GLUCOSE,BLOOD- poct (STL) 136 mg/dL H 72-Aug 15, 2024 04:16 PM [facility] GLUCOSE,BLOOD-poct (STL) Specimen Type: BLOOD Comment: Test Performed by: [id number] Meter #: [id number] Ordering Provider: SILVIA REDDY Report Released Date/Time: Aug 15, 2024 04:59 PM Reporting Lab: [facility] [address] Performing Lab: [facility] [address] GLUCOSE,BLOOD- poct (STL) 194 mg/dL H -Aug 15, 2024 11:39 AM [facility] GLUCOSE,BLOOD-poct (STL) Specimen Type: BLOOD Comment: Test Performed by: [id number] Meter #: [id number] Ordering Provider: SILVIA REDDY Report Released Date/Time: Aug 15, 2024 12:00 PM Reporting Lab: [facility] [address] Performing Lab: [facility] [address] GLUCOSE,BLOOD- poct (STL) 127 mg/dL H Aug 15, 2024 05:07 AM [facility] GLUCOSE,BLOOD-poct (STL) Specimen Type: BLOOD Comment: Test Performed by: [id number] Meter #: [id number] Ordering Provider: SILVIA REDDY Report Released Date/Time: Aug 15, 2024 06:14 AM Reporting Lab: [facility] [address] Performing Lab: [facility] [address] GLUCOSE,BLOOD- poct (STL) 151 mg/dL H Aug 14, 2024 04:22 PM [facility] GLUCOSE,BLOOD-poct (STL) Specimen Type: BLOOD Comment: Test Performed by: [id number] Meter #: [id number] Ordering Provider: SILVIA REDDY Report Released Date/Time: Aug 14, 2024 04:52 PM Reporting Lab: [facility] [address] Performing Lab: [facility] [address] GLUCOSE,BLOOD- poct (STL) 129 mg/dL H Aug 14, 2024 11:[address] [facility] GLUCOSE,BLOOD-poct (STL) Specimen Type: BLOOD Comment: Test Performed by: [id number] Meter #: [id number] Ordering Provider: SILVIA REDDY Report Released Date/Time: Aug 14, 2024 11:37 AM Reporting Lab: [facility] [address] Performing Lab: [facility] [address] GLUCOSE,BLOOD- poct (STL) 135 mg/dL H 72-99 Aug 14, 2024 06:59 AM [facility] QUANTIFERON-TB,4 TUBE Specimen [...] For additional information, please refer to http://education. [employer].com/faq/VYL322 (This link is being provided for information/ educational purposes only.) Test Performed by [facility], [employer] [facility], [address] [place], [place] Tommie Garcia M.D., Ph.D., Director of Laboratories , [facility] [id number] Ordering Provider: SILVIA REDDY Report Released Date/Time: Aug 11, 2024 03:58 PM Reporting Lab: [facility] [address] [place] [address] Performing Lab: [facility] [address] [facility] [address] .NIL - QUANTIFERON 0.04 [IU]/mL .MITOGEN-NIL 0.39 [IU]/mL .QUANTIFERON INDETERMINATE NEGATIVE .TB1-NIL <0.00 [IU]/mL .TB2-NIL <0.00 [IU]/mL Aug 14, 2024 06:59 AM [facility] B12 Specimen Type: SERUM No comment entered. Ordering Provider: SILVIA REDDY Report Released Date/Time: Aug 11, 2024 03:58 PM Reporting Lab: [facility] [address] Performing Lab: [facility] [address] B12 757 pg/mL 213-816 Aug 14, 2024 06:59 AM [facility] FOLATE ([facility]) Specimen Type: SERUM No comment entered. Ordering Provider: SILVIA REDDY Report Released Date/Time: Aug 11, 2024 03:58 PM Reporting Lab: [facility] [address] Performing Lab: [facility] [address] [facility]OLATE ([facility]) 6.8 ng/mL L 7-20 Aug 14, 2024 06:59 AM [facility] VITAMIN D, 25-HYDROXY Specimen Type: SERUM No comment entered. Ordering Provider: SILVIA REDDY Report Released Date/Time: Aug 11, 2024 03:58 PM Reporting Lab: [facility] [address] Performing Lab: [facility] [address] VITAMIN D, 25-HYDROXY 8.9 ng/mL L 30-96 Aug 14, 2024 06:59 AM [facility] MAGNESIUM Specimen Type: PLASMA Comment: No hemolysis noted. Ordering Provider: SILVIA REDDY Report Released Date/Time: Aug 11, 2024 03:58 PM Reporting Lab: [facility] [place] [phone] Performing Lab: [facility] [address] MAGNESIUM 1.9 mg/dL 1.6-2.6 Aug 14, 2024 06:59 AM [facility] COMPREHENSIVE METABOLIC PANEL Specimen Type: PLASMA Comment: No hemolysis noted. Ordering Provider: SILVIA REDDY Report Released Date/Time: Aug 11, 2024 03:58 PM Reporting Lab: [facility] [place] [address] Performing Lab: [facility] [place] [phone] CREATININE 0.75 mg/dL 0.70-1.30 UREA NITROGEN 13.6 [...] 95.88 >60 Aug 14, 2024 06:59 AM [facility] CBC Specimen Type: BLOOD No comment entered. Ordering Provider: SILVIA REDDY Report Released Date/Time: Aug 11, 2024 03:58 PM Reporting Lab: [facility] [place] [phone] Performing Lab: [facility] [place] [address] WBC 4.1 10*3/uL 3.6-11.2 RBC 3.20 10*6/uL [...] 10*3/uL 0.00-0.20 Aug 14, 2024 05:08 AM [facility] GLUCOSE,BLOOD-poct (STL) Specimen Type: BLOOD Comment: Test Performed by: [id number] Meter #: [id number] Ordering Provider: SILVIA REDDY Report Released Date/Time: Aug 14, 2024 05:52 AM Reporting Lab: [facility] [id number] Performing Lab: [facility] [address] GLUCOSE,BLOOD- poct (STL) 135 mg/dL H 72-99 Aug 13, 2024 04:27 PM [facility] GLUCOSE,BLOOD-poct (STL) Specimen Type: BLOOD Comment: Test Performed by: [id number] Meter #: [id number] Ordering Provider: SILVIA REDDY Report Released Date/Time: Aug 13, 2024 04:41 PM Reporting Lab: [facility] [address] Performing Lab: [facility] [address] GLUCOSE,BLOOD- poct (STL) 181 mg/dL H -Aug 13, 2024 11:33 AM [facility] GLUCOSE,BLOOD-poct (STL) Specimen Type: BLOOD Comment: Test Performed by: [id number] Meter #: [id number] Ordering Provider: SILVIA REDDY Report Released Date/Time: Aug 13, 2024 03:55 PM Reporting Lab: [facility] [address] Performing Lab: [facility] [address] GLUCOSE,BLOOD- poct (STL) 140 mg/dL H Aug 13, 2024 05:54 AM [facility] GLUCOSE,BLOOD-poct (STL) Specimen Type: BLOOD Comment: Test Performed by: [id number] Meter #: [id number] Ordering Provider: SILVIA REDDY Report Released Date/Time: Aug 13, 2024 06:20 AM Reporting Lab: [facility] [address] Performing Lab: [facility] [address] [facility] [address] GLUCOSE,BLOOD- poct (STL) 112 mg/dL H Aug 12, 2024 04:35 PM [facility] GLUCOSE,BLOOD-poct (STL) Specimen Type: BLOOD Comment: Test Performed by: [id number] Meter #: [id number] Ordering Provider: SILVIA REDDY Report Released Date/Time: Aug 12, 2024 04:47 PM Reporting Lab: [facility] [address] Performing Lab: [facility] [address] GLUCOSE,BLOOD- poct (STL) 128 mg/dL H -Aug 12, 2024 11:26 AM [facility] GLUCOSE,BLOOD-poct (STL) Specimen Type: BLOOD Comment: Test Performed by: [id number] Meter #: [id number] Ordering Provider: SILVIA REDDY Report Released Date/Time: Aug 12, 2024 11:45 AM Reporting Lab: [facility] [address] Performing Lab: [facility] [address] GLUCOSE,BLOOD- poct (STL) 188 mg/dL H Aug 12, 2024 06:13 AM [facility] GLUCOSE,BLOOD-poct (STL) Specimen Type: BLOOD Comment: Test Performed by: [id number] Meter #: [id number] Ordering Provider: SILVIA REDDY Report Released Date/Time: Aug 12, 2024 06:25 AM Reporting Lab: [facility] [address] Performing Lab: [facility] [address] GLUCOSE,BLOOD- poct (STL) 116 mg/dL H Aug 11, 2024 04:10 PM [facility] GLUCOSE,BLOOD-poct (STL) Specimen Type: BLOOD Comment: Test Performed by: [id number] Meter #: [id number] Ordering Provider: SILVIA REDDY Report Released Date/Time: Aug 11, 2024 04:27 PM Reporting Lab: [facility] [address] Performing Lab: [facility] [address] GLUCOSE,BLOOD- poct (STL) 184 mg/dL H -Aug 11, 2024 01:44 PM [facility] MRSA [...] Aug 11, 2024 02:03 PM Reporting Lab: [facility] [address] [facility] [address] Performing Lab: [facility] [address] [facility] [address] MRSA SURVL NARES DNA Negative Negative Social [...] 19, 2017 ADVANCE DIRECTIVE DISCUSSION ERICK BARDALES [facility] Encounter Notes: All associated encounter notes This section contains the clinical notes associated to the Encounter. 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 INPATIENT DICHARGE SUMMARY, PLACED IN THE PCP'S FOLDER. 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
--- OUTSIDE RECORDS SUMMARY | 2024-11-17 04:21 | XMS_ITS | Encounter Summary ---
Author Name [facility] [place] [facility] [place] [facility] [place] Address [address] [place] [address] Care Team Providers Care Loom Fixer Name Role Phone MANUEL BAIRD [...] PART A Apr 08, 2017 PART A [id number] ASHLEY WALKER PATIENT Selected Encounter This section includes the information on record at [place] for the Encounter. Date/Time Encounter Type Encounter Description Reason Provider Source Sep 08, 2024 02:46 PM HC PRO PHONE CALL 5-10 MIN TELEPHONE/MEDICIN E ICD-10-CM D69.6 Thrombocytopenia, unspecified ASHRITA UNDER[place]OD [facility] Encounter Template Text not used by [place] Assessments - Encounter Diagnoses This section includes the primary and secondary diagnoses documented for the Encounter. Date/Time Primary/Secondary Diagnosis Diagnosis Name Provider Source Sep 08, 2024 02:46 PM PRIMARY Thrombocytopenia, unspecified ASHRITA UNDER[place]OD [facility] Plan of Treatment: Future Appointments (+ 6 months) and Future Tests (+/- 45 days) The Plan of Treatment section includes future care activities for the patient [facility] [place] [facility]. This section includes future [...] AM AMBULATORY - SURGERY [facility] Nov 21, 2024 10:00 AM AMBULATORY - NONE . [facility] Dec 11, 2024 10:30 AM [...] [facility] Cons Bedside [facility] Lab Results: +/- 30 days of the encounter This section includes the Chemistry and Hematology Lab Results on record with [place] for the patient. Radiology Reports and Pathology Reports are provided separately, in subsequent sections. Lab Results This section contains the Chemistry/Hematology Results that were resulted 30 days before or 30 daysafter the date of the Encounter. Date/Time Source Result Type Result - Unit Interpretation Reference Range Comment Aug 23, 2024 08:21 AM [facility] MAGNESIUM Specimen Type: PLASMA No comment entered. Ordering Provider: SILVIA REDDY Report Released Date/Time: Aug 22, 2024 11:26 AM Reporting Lab: [facility]1 [facility] [address] Performing Lab: [facility] #1 [facility] [address] MAGNESIUM 1.8 mg/dL 1.6-2.6 Aug 23, 2024 08:21 AM [facility] CBC Specimen Type: BLOOD No comment entered. Ordering Provider: SILVIA REDDY Report Released Date/Time: Aug 22, 2024 11:19 AM Reporting Lab: [facility]1 [facility] [address] Performing Lab: [facility]1 [facility] [address] WBC 4.0 10*3/uL 3.6-11.2 RBC 3.65 10*6/uL [...] 2024 05:12 AM [facility] GLUCOSE,BLOOD-poct (STL) Specimen Type: BLOOD Comment: Test Performed by: [id number] Meter #: [id number] Ordering Provider: SILVIA REDDY Report Released Date/Time: Aug 23, 2024 05:23 AM Reporting Lab: [facility]1 [facility] [address] Performing Lab: [facility]1 [facility] [address] GLUCOSE,BLOOD- poct (STL) 99 mg/dL 72-99 Aug 23, 2024 02:45 AM [facility] OCCULT BLOOD FIT X1 SCREEN Specimen Type: FECES No comment entered. Ordering Provider: SILVIA REDDY Report Released Date/Time: Aug 22, 2024 11:23 AM Reporting Lab: [address] [address] Performing Lab: [facility] [address] [place] [address] OCCULT BLOOD (FIT) #1 OF 1 Negative Negative Aug 22, 2024 07:30 PM [facility] OCCULT BLOOD FIT X1 SCREEN Specimen Type: FECES No comment entered. Ordering Provider: SILVIA REDDY Report Released Date/Time: Aug 22, 2024 11:23 AM Reporting Lab: [facility] [address] [place] [address] Performing Lab: [facility] [address] [place] [address] OCCULT BLOOD (FIT) #1 OF 1 Negative Negative Aug 22, 2024 06:15 PM [facility] OCCULT BLOOD FIT X1 SCREEN Specimen Type: FECES No comment entered. Ordering Provider: SILVIA REDDY Report Released Date/Time: Aug 22, 2024 11:23 AM Reporting Lab: [address] [address] Performing Lab: [place] [address] [address] [facility] [address] OCCULT BLOOD (FIT) #1 OF 1 Negative Negative Aug 22, 2024 04:24 PM [facility] GLUCOSE,BLOOD-poct (STL) Specimen Type: BLOOD Comment: Test Performed by: [id number] Meter #: [id number] Ordering Provider: SILVIA REDDY Report Released Date/Time: Aug 22, 2024 04:36 PM Reporting Lab: [facility]1 [facility] [address] Performing Lab: [facility] #1 [facility] [address] GLUCOSE,BLOOD- poct (STL) 176 mg/dL H -Aug 22, 2024 04:23 PM [facility] GLUCOSE,BLOOD-poct (STL) Specimen Type: BLOOD Comment: Test Performed by: [id number] Meter #: [id number] Ordering Provider: SILVIA REDDY Report Released Date/Time: Aug 22, 2024 04:36 PM Reporting Lab: [facility]1 [facility] [address] Performing Lab: [facility]1 [facility] [address] GLUCOSE,BLOOD- poct (STL) 221 mg/dL H 72-Aug 22, 2024 11:15 AM [facility] GLUCOSE,BLOOD-poct (STL) Specimen Type: BLOOD Comment: Test Performed by: [id number] Meter #: [id number] Ordering Provider: SILVIA REDDY Report Released Date/Time: Aug 22, 2024 11:27 AM Reporting Lab: [facility]1 [facility] [address] Performing Lab: [facility]1 [facility] [address] GLUCOSE,BLOOD- poct (STL) 140 mg/dL H 72-Aug 22, 2024 08:03 AM [facility] FERRITIN Specimen Type: SERUM No comment entered. Ordering Provider: JUDIT PERKINS Report Released Date/Time: Aug 18, 2024 11:01 AM Reporting Lab: [facility] [address] [facility] [address] Performing Lab: [facility] [address] [facility] [address] FERRITIN 79.50 ng/mL 22-275 Aug 22, 2024 08:03 AM [facility] IRON/TIBC PROFILE Specimen Type: SERUM No comment entered. Ordering Provider: JUDIT PERKINS Report Released Date/Time: Aug 18, 2024 11:01 AM Reporting Lab: [address] [address] Performing Lab: [place] [address] [facility] [address] TIBC 283 ug/dL 250-450 TRANSFERRIN 226 mg/dL 163-344 IRON SATURATION 7 L 20-50 IRON 19 ug/dL L 65-175 Aug 22, 2024 08:03 AM [facility] B12 Specimen Type: SERUM No comment entered. Ordering Provider: JUDIT PERKINS Report Released Date/Time: Aug 18, 2024 11:01 AM Reporting Lab: [facility]1 [facility] [address] Performing Lab: [facility]1 [facility] [address] B12 631 pg/mL 213-816 Aug 22, 2024 08:03 AM [facility] COMPREHENSIVE METABOLIC PANEL Specimen Type: PLASMA Comment: No hemolysis noted. Ordering Provider: SILVIA REDDY Report Released Date/Time: Aug 17, 2024 01:18 PM Reporting Lab: [facility] [address] [facility] [address] Performing Lab: [address] [address] CREATININE 0.80 mg/dL 0.7-1.3 UREA NITROGEN 9.7 [...] Lab: [facility]1 [facility] [address] Performing Lab: [facility]1 [facility] [address] WBC 3.5 10*3/uL L 3.6-11.2 RBC 3.23 [...] 2024 05:03 AM [facility] GLUCOSE,BLOOD-poct (STL) Specimen Type: BLOOD Comment: Test Performed by: [id number] Meter #: [id number] Ordering Provider: SILVIA REDDY Report Released Date/Time: Aug 22, 2024 06:17 AM Reporting Lab: [facility] #1 [facility] [address] Performing Lab: [facility] [address] GLUCOSE,BLOOD- poct (STL) 170 mg/dL H 72-Aug 21, 2024 04:32 PM [facility] GLUCOSE,BLOOD-poct (STL) Specimen Type: BLOOD Comment: Test Performed by: [id number] Meter #: [id number] Ordering Provider: SILVIA REDDY Report Released Date/Time: Aug 21, 2024 04:49 PM Reporting Lab: [facility] #1 [facility] [address] Performing Lab: [facility] [address] GLUCOSE,BLOOD- poct (STL) 169 mg/dL H 72-99 Aug 21, 2024 11:53 AM [facility] GLUCOSE,BLOOD-poct (STL) Specimen Type: BLOOD Comment: Test Performed by: [id number] Meter #: [id number] Ordering Provider: SILVIA REDDY Report Released Date/Time: Aug 21, 2024 12:11 PM Reporting Lab: [facility] #1 [facility] [address] Performing Lab: [facility] #1 [facility] [address] GLUCOSE,BLOOD- poct (STL) 149 mg/dL H 72-99 Aug 21, 2024 05:10 AM [facility] GLUCOSE,BLOOD-poct (STL) Specimen Type: BLOOD Comment: Test Performed by: [id number] Meter #: [id number] Ordering Provider: SILVIA REDDY Report Released Date/Time: Aug 21, 2024 05:27 AM Reporting Lab: [facility] #1 [place] [address] Performing Lab: [facility] #1 [facility] [address] GLUCOSE,BLOOD- poct (STL) 118 mg/dL H 72-99 Aug 20, 2024 04:38 PM [facility] GLUCOSE,BLOOD-poct (STL) Specimen Type: BLOOD Comment: Test Performed by: [id number] Meter #: [id number] Ordering Provider: SILVIA REDDY Report Released Date/Time: Aug 21, 2024 01:55 AM Reporting Lab: [facility] #1 [place] [address] Performing Lab: [facility] #1 [place] [address] GLUCOSE,BLOOD- poct (STL) 169 mg/dL H 72-Aug 20, 2024 04:36 PM [facility] GLUCOSE,BLOOD-poct (STL) Specimen Type: BLOOD Comment: Test Performed by: [id number] Meter #: [id number] Ordering Provider: SILVIA REDDY Report Released Date/Time: Aug 21, 2024 01:55 AM Reporting Lab: [facility] #1 [place] [address] Performing Lab: [facility] #1 [facility] [address] GLUCOSE,BLOOD- poct (STL) 395 mg/dL H 72-99 Aug 20, 2024 11:45 AM [facility] GLUCOSE,BLOOD-poct (STL) Specimen Type: BLOOD Comment: Test Performed by: [id number] Meter #: [id number] Ordering Provider: SILVIA REDDY Report Released Date/Time: Aug 20, 2024 11:56 AM Reporting Lab: [facility] #1 [place] [address] Performing Lab: [facility]1 [facility] [address] GLUCOSE,BLOOD- poct (STL) 169 mg/dL H -Aug 20, 2024 05:06 AM [facility] GLUCOSE,BLOOD-poct (STL) Specimen Type: BLOOD Comment: Test Performed by: [id number] Meter #: [id number] Ordering Provider: SILVIA REDDY Report Released Date/Time: Aug 20, 2024 06:05 AM Reporting Lab: [facility]1 [facility] [address] Performing Lab: [facility] #1 [facility] [address] GLUCOSE,BLOOD- poct (STL) 115 mg/dL H Aug 19, 2024 04:23 PM [facility] GLUCOSE,BLOOD-poct (STL) Specimen Type: BLOOD Comment: Test Performed by: [id number] Meter #: [id number] Ordering Provider: SILVIA REDDY Report Released Date/Time: Aug 19, 2024 05:54 PM Reporting Lab: [facility]1 [facility] [address] Performing Lab: [facility]1 [facility] [address] GLUCOSE,BLOOD- poct (STL) 137 mg/dL H Aug 19, 2024 11:28 AM [facility] GLUCOSE,BLOOD-poct (STL) Specimen Type: BLOOD Comment: Test Performed by: [id number] Meter #: [id number] Ordering Provider: SILVIA REDDY Report Released Date/Time: Aug 19, 2024 11:51 AM Reporting Lab: [facility]1 [facility] [address] Performing Lab: [facility]1 [facility] [address] GLUCOSE,BLOOD- poct (STL) 190 mg/dL H -Aug 19, 2024 05:21 AM [facility] GLUCOSE,BLOOD-poct (STL) Specimen Type: BLOOD Comment: Test Performed by: [id number] Meter #: [id number] Ordering Provider: SILVIA REDDY Report Released Date/Time: Aug 19, 2024 05:56 AM Reporting Lab: [facility] #1 [facility] [address] Performing Lab: [facility] [address] GLUCOSE,BLOOD- poct (STL) 130 mg/dL H Aug 18, 2024 04:49 PM [facility] GLUCOSE,BLOOD-poct (STL) Specimen Type: BLOOD Comment: Test Performed by: [id number] Meter #: [id number] Ordering Provider: SILVIA REDDY Report Released Date/Time: Aug 18, 2024 05:01 PM Reporting Lab: [facility]1 [facility] [address] Performing Lab: [facility] [address] GLUCOSE,BLOOD- poct (STL) 129 mg/dL H Aug 18, 2024 11:23 AM [facility] GLUCOSE,BLOOD-poct (STL) Specimen Type: BLOOD Comment: Test Performed by: [id number] Meter #: [id number] Ordering Provider: SILVIA REDDY Report Released Date/Time: Aug 18, 2024 11:41 AM Reporting Lab: [facility] #1 [facility] [address] Performing Lab: [facility] #1 [facility] [address] GLUCOSE,BLOOD- poct (STL) 180 mg/dL H Aug 18, 2024 05:08 AM [facility] GLUCOSE,BLOOD-poct (STL) Specimen Type: BLOOD Comment: Test Performed by: [id number] Meter #: [id number] Ordering Provider: SILVIA REDDY Report Released Date/Time: Aug 18, 2024 05:31 AM Reporting Lab: [facility] #1 [facility] [address] Performing Lab: [facility] #1 [facility] [address] GLUCOSE,BLOOD- poct (STL) 127 mg/dL H 72-Aug 17, 2024 07:32 PM [facility] GLUCOSE,BLOOD-poct (STL) Specimen Type: BLOOD Comment: Test Performed by: [id number] Meter #: [id number] Ordering Provider: SILVIA REDDY Report Released Date/Time: Aug 17, 2024 07:59 PM Reporting Lab: [facility] #1 [facility] [address] Performing Lab: [facility] #1 [place] [address] GLUCOSE,BLOOD- poct (STL) 154 mg/dL H -Aug 17, 2024 04:24 PM [facility] GLUCOSE,BLOOD-poct (STL) Specimen Type: BLOOD Comment: Test Performed by: [id number] Meter #: [id number] Ordering Provider: SILVIA REDDY Report Released Date/Time: Aug 17, 2024 04:35 PM Reporting Lab: [facility] #1 [facility] [address] Performing Lab: [facility]1 [facility] [address] GLUCOSE,BLOOD- poct (STL) 178 mg/dL H 72-Aug 17, 2024 05:09 AM [facility] GLUCOSE,BLOOD-poct (STL) Specimen Type: BLOOD Comment: Test Performed by: [id number] Meter #: [id number] Ordering Provider: SILVIA REDDY Report Released Date/Time: Aug 17, 2024 05:54 AM Reporting Lab: [facility]1 [place] [address] Performing Lab: [facility]1 [facility] [address] GLUCOSE,BLOOD- poct (STL) 124 mg/dL H Aug 16, 2024 07:40 PM [facility] GLUCOSE,BLOOD-poct (STL) Specimen Type: BLOOD Comment: Test Performed by: [id number] Meter #: [id number] Ordering Provider: SILVIA REDDY Report Released Date/Time: Aug 16, 2024 08:28 PM Reporting Lab: [facility]1 [facility] [address] Performing Lab: [facility] #1 [facility] [address] GLUCOSE,BLOOD- poct (STL) 144 mg/dL H Aug 16, 2024 04:19 PM [facility] GLUCOSE,BLOOD-poct (STL) Specimen Type: BLOOD Comment: Test Performed by: [id number] Meter #: [id number] Ordering Provider: SILVIA REDDY Report Released Date/Time: Aug 16, 2024 04:45 PM Reporting Lab: [facility]1 [facility] [address] Performing Lab: [facility] #1 [facility] [address] GLUCOSE,BLOOD- poct (STL) 138 mg/dL H Aug 16, 2024 11:52 AM [facility] GLUCOSE,BLOOD-poct (STL) Specimen Type: BLOOD Comment: Test Performed by: [id number] Meter #: [id number] Ordering Provider: SILVIA REDDY Report Released Date/Time: Aug 16, 2024 12:04 PM Reporting Lab: [facility]1 [facility] [address] Performing Lab: [facility]1 [facility] [address] GLUCOSE,BLOOD- poct (STL) 135 mg/dL H Aug 16, 2024 05:24 AM [facility] GLUCOSE,BLOOD-poct (STL) Specimen Type: BLOOD Comment: Test Performed by: [id number] Meter #: [id number] Ordering Provider: SILVIA REDDY Report Released Date/Time: Aug 16, 2024 05:38 AM Reporting Lab: [facility] #1 [facility] [address] Performing Lab: [facility] [address] GLUCOSE,BLOOD- poct (STL) 151 mg/dL H Aug 15, 2024 07:31 PM [facility] GLUCOSE,BLOOD-poct (STL) Specimen Type: BLOOD Comment: Test Performed by: [id number] Meter #: [id number] Ordering Provider: SILVIA REDDY Report Released Date/Time: Aug 15, 2024 08:07 PM Reporting Lab: [facility]1 [facility] [address] Performing Lab: [facility] #1 [facility] [address] GLUCOSE,BLOOD- poct (STL) 173 mg/dL H Aug 15, 2024 04:18 PM [facility] GLUCOSE,BLOOD-poct (STL) Specimen Type: BLOOD Comment: Test Performed by: [id number] Meter #: [id number] Ordering Provider: SILVIA REDDY Report Released Date/Time: Aug 15, 2024 04:59 PM Reporting Lab: [facility]1 [facility] [address] Performing Lab: [facility] #1 [facility] [address] GLUCOSE,BLOOD- poct (STL) 136 mg/dL H Aug 15, 2024 04:16 PM [facility] GLUCOSE,BLOOD-poct (STL) Specimen Type: BLOOD Comment: Test Performed by: [id number] Meter #: [id number] Ordering Provider: SILVIA REDDY Report Released Date/Time: Aug 15, 2024 04:59 PM Reporting Lab: [facility] #1 [facility] [address] Performing Lab: [facility] #1 [facility] [address] GLUCOSE,BLOOD- poct (STL) 194 mg/dL H 72-Aug 15, 2024 11:39 AM [facility] GLUCOSE,BLOOD-poct (STL) Specimen Type: BLOOD Comment: Test Performed by: [id number] Meter #: [id number] Ordering Provider: SILVIA REDDY Report Released Date/Time: Aug 15, 2024 12:00 PM Reporting Lab: [facility] #1 [facility] [address] Performing Lab: [facility] #1 [facility] [address] GLUCOSE,BLOOD- poct (STL) 127 mg/dL H -Aug 15, 2024 05:07 AM [facility] GLUCOSE,BLOOD-poct (STL) Specimen Type: BLOOD Comment: Test Performed by: [id number] Meter #: [id number] Ordering Provider: SILVIA REDDY Report Released Date/Time: Aug 15, 2024 06:14 AM Reporting Lab: [facility] #1 [facility] [address] Performing Lab: [facility] #1 [facility] [address] GLUCOSE,BLOOD- poct (STL) 151 mg/dL H 72-99 Aug 14, 2024 04:22 PM [facility] GLUCOSE,BLOOD-poct (STL) Specimen Type: BLOOD Comment: Test Performed by: [id number] Meter #: [id number] Ordering Provider: SILVIA REDDY Report Released Date/Time: Aug 14, 2024 04:52 PM Reporting Lab: [facility] #1 [place] [address] Performing Lab: [facility]1 [facility] [address] GLUCOSE,BLOOD- poct (STL) 129 mg/dL H 72-99 Aug 14, 2024 11:21 AM [facility] GLUCOSE,BLOOD-poct (STL) Specimen Type: BLOOD Comment: Test Performed by: [id number] Meter #: [id number] Ordering Provider: SILVIA REDDY Report Released Date/Time: Aug 14, 2024 11:37 AM Reporting Lab: [facility]1 [facility] [address] Performing Lab: [facility]1 [facility] [address] GLUCOSE,BLOOD- poct (STL) 135 mg/dL H 72-Aug 14, 2024 06:59 AM [facility] QUANTIFERON-TB,4 TUBE Specimen [...] For additional information, please refer to http://[email or web address] Amind. Uskape/faq/YIV526 (This link is being provided for information/ educational purposes only.) Test Performed by [employer], [employer] [facility], [address] [place] [id number] Tommie Garcia M.D., Ph.D., Director of Laboratories , [facility] [id number] Ordering Provider: SILVIA REDDY Report Released Date/Time: Aug 11, 2024 03:58 PM Reporting Lab: [facility] [address] [facility] [address] Performing Lab: [facility] [id number] [place] [address] .NIL - QUANTIFERON 0.04 [IU]/mL .MITOGEN-NIL 0.39 [IU]/mL .QUANTIFERON INDETERMINATE NEGATIVE .TB1-NIL <0.00 [IU]/mL .TB2-NIL <0.00 [IU]/mL Aug 14, 2024 06:59 AM [facility] B12 Specimen Type: SERUM No comment entered. Ordering Provider: SILVIA REDDY Report Released Date/Time: Aug 11, 2024 03:58 PM Reporting Lab: [facility] [id number] Performing Lab[facility] [id number] B12 757 pg/mL 213-816 Aug 14, 2024 06:59 AM [facility] FOLATE ([facility]) Specimen Type: SERUM No comment entered. Ordering Provider: SILVIA REDDY Report Released Date/Time: Aug 11, 2024 03:58 PM Reporting Lab: [facility] [id number] Performing Lab: [facility] [id number] FOLATE ([facility]) 6.8 ng/mL L 7-20 Aug 14, 2024 06:59 AM [facility] VITAMIN D, 25-HYDROXY Specimen Type: SERUM No comment entered. Ordering Provider: SILVIA REDDY Report Released Date/Time: Aug 11, 2024 03:58 PM Reporting Lab: [facility] [id number] Performing Lab: [facility] [id number] VITAMIN D, 25-HYDROXY 8.9 ng/mL L 30-96 Aug 14, 2024 06:59 AM [facility] Specimen Type: PLASMA Comment: No hemolysis noted. Ordering Provider: SILVIA REDDY Report Released Date/Time: Aug 11, 2024 03:58 PM Reporting Lab: [facility]1 [facility] [phone] Performing Lab: [facility] #1 [facility] [address] MAGNESIUM 1.9 mg/dL 1.6-2.6 Aug 14, 2024 06:59 AM [facility] COMPREHENSIVE METABOLIC PANEL Specimen Type: PLASMA Comment: No hemolysis noted. Ordering Provider: SILVIA REDDY Report Released Date/Time: Aug 11, 2024 03:58 PM Reporting Lab: [facility]1 [facility] [address] Performing Lab: [facility] #1 [facility] [address] CREATININE 0.75 mg/dL 0.70-1.30 UREA NITROGEN 13.6 [...] 95.88 >60 Aug 14, 2024 06:59 AM [facility] CBC Specimen Type: BLOOD No comment entered. Ordering Provider: SILVIA REDDY Report Released Date/Time: Aug 11, 2024 03:58 PM Reporting Lab: [facility]1 [facility] [phone] Performing Lab: [facility]1 [facility] [phone] WBC 4.1 10*3/uL 3.6-11.2 RBC 3.20 10*6/uL [...] 10*3/uL 0.00-0.20 Aug 14, 2024 05:08 AM [facility] GLUCOSE,BLOOD-poct (STL) Specimen Type: BLOOD Comment: Test Performed by: [id number] Meter #: [id number] Ordering Provider: SILVIA REDDY Report Released Date/Time: Aug 14, 2024 05:52 AM Reporting Lab: [facility]1 [facility] [address] Performing Lab: [facility]1 [facility] [address] GLUCOSE,BLOOD- poct (STL) 135 mg/dL H 72-99 Aug 13, 2024 04:27 PM [facility] GLUCOSE,BLOOD-poct (STL) Specimen Type: BLOOD Comment: Test Performed by: [id number] Meter #: [id number] Ordering Provider: SILVIA REDDY Report Released Date/Time: Aug 13, 2024 04:41 PM Reporting Lab: [facility]1 [facility] [address] Performing Lab: [facility] [address] GLUCOSE,BLOOD- poct (STL) 181 mg/dL H 72-Aug 13, 2024 11:33 AM [facility] GLUCOSE,BLOOD-poct (STL) Specimen Type: BLOOD Comment: Test Performed by: [id number] Meter #: [id number] Ordering Provider: SILVIA REDDY Report Released Date/Time: Aug 13, 2024 03:55 PM Reporting Lab: [facility]1 [facility] [phone] Performing Lab: [facility] [place] [address] GLUCOSE,BLOOD- poct (STL) 140 mg/dL H -Aug 13, 2024 05:54 AM [facility] GLUCOSE,BLOOD-poct (STL) Specimen Type: BLOOD Comment: Test Performed by: [id number] Meter #: [id number] Ordering Provider: SILVIA REDDY Report Released Date/Time: Aug 13, 2024 06:20 AM Reporting Lab: [facility]1 [place] [phone] Performing Lab: [facility]1 [facility] [address] GLUCOSE,BLOOD- poct (STL) 112 mg/dL H -Aug 12, 2024 04:35 PM [facility] GLUCOSE,BLOOD-poct (STL) Specimen Type: BLOOD Comment: Test Performed by: [id number] Meter #: [id number] Ordering Provider: SILVIA REDDY Report Released Date/Time: Aug 12, 2024 04:47 PM Reporting Lab: [facility]1 [facility] [address] Performing Lab: [facility]1 [facility] [address] GLUCOSE,BLOOD- poct (STL) 128 mg/dL H 72-99 Aug 12, 2024 11:26 AM [facility] GLUCOSE,BLOOD-poct (STL) Specimen Type: BLOOD Comment: Test Performed by: [id number] Meter #: [id number] Ordering Provider: SILVIA REDDY Report Released Date/Time: Aug 12, 2024 11:45 AM Reporting Lab: [facility]1 [facility] [address] Performing Lab: [facility] #1 [place] [phone] GLUCOSE,BLOOD- poct (STL) 188 mg/dL H -Aug 12, 2024 06:13 AM [facility] GLUCOSE,BLOOD-poct (STL) Specimen Type: BLOOD Comment: Test Performed by: [id number] Meter #: [id number] Ordering Provider: SILVIA REDDY Report Released Date/Time: Aug 12, 2024 06:25 AM Reporting Lab: [facility]1 [facility] [phone] Performing Lab: [facility]1 [facility] [address] GLUCOSE,BLOOD- poct (STL) 116 mg/dL H 72-99 Aug 11, 2024 04:10 PM [facility] GLUCOSE,BLOOD-poct (STL) Specimen Type: BLOOD Comment: Test Performed by: [id number] Meter #: [id number] Ordering Provider: SILVIA REDDY Report Released Date/Time: Aug 11, 2024 04:27 PM Reporting Lab: [facility] #1 [place] [address] Performing Lab: [facility]1 [place] [phone] GLUCOSE,BLOOD- poct (STL) 184 mg/dL H 72-99 Aug 11, 2024 01:44 PM [facility] MRSA SURVL NARES DNA Specimen Type: NARES [...] Aug 11, 2024 02:03 PM Reporting Lab: [address] [phone] Performing Lab: [address] [phone] MRSA SURVL NARES DNA Negative Negative Social History: Smoking Status (Most current) and Tobacco Use (All prior to encounter date) This section includes the most current, and the historical, smoking and tobacco- related health factors from the [place] facility where the Encounter took place. Current Smoking Status This section includes the most current smoking, or tobacco-related health factor, from the [place] facility where the Encounter took place. Date/Time Current Smoking Status Comment Radhika goins Aug 11, 2016 10:34 AM QUIT TOBACCO >7 YEARS AGO [facility] Tobacco Use History This section includes a history of the smoking, or tobacco-related health factors, that were collected on or before the date of the Encounter. The data comes from the [place] facility where the Encounter took place. Date/Time Smoking Status/Tobacco Use Comment Juan acmichael Sep 30, 2015 10:12 AM QUIT TOBACCO >7 YEARS AGO [facility] Oct 29, 2014 10:23 AM QUIT TOBACCO >7 YEARS AGO [facility] Dec 27, 2013 01:27 PM QUIT TOBACCO >7 YEARS AGO [facility] Feb 24, 2013 02:01 PM LIFETIME NON-USER OF TOBACCO [facility] Feb 11, 2009 10:09 AM QUIT TOBACCO >7 YEARS AGO [facility] Oct 06, 2006 09:30 AM CURRENT NON-TOBACC O USER-HX OF USE [facility] Oct 06, 2006 09:30 AM TOBACCO TERMINATION STAGE [facility] Advance Directives: All historical [...] DIRECTIVE DISCUSSION ERICK BARDALES [facility] Encounter Notes: All associated encounter notes This section contains the clinical notes associated to the Encounter. Date/Time Encounter Note(s) Provider Source Sep 08, 2024 02:46 PM NURSING TELEHEALTH NOTE: LOCAL TITLE: NURS HEMATOLOGY/ONCOLOGY TELEPHONE FOLLOW UP [facility] STANDARD TITLE: NURSING TELEHEALTH NOTE DATE OF NOTE: SEP 08, 2024@14:46 ENTRY DATE: SEP 08, 2024@14:46:28 AUTHOR: RITA ASH EXP COSIGNER: URGENCY: STATUS: COMPLETED Hematology/Oncology telephone follow up [facility] Patient Demographics Patient name:CHET WALKER Date of :Apr Age:74 Patient Patient Address: [address] [place] [address] CHET WALKER, an 74 year old MALE with THROMBOCYTOPENIA was a no show for scheduled appointment on Jul. did not attend scheduled appointment. [place] staff must make attempts to follow up on all scheduled no show appointments in the Hematology clinic. Appointments include clinic visits, chemotherapy visits, and pharmacology visits. Minimum rescheduling efforts are defined as: At least one phone call must be documented within one business day of missed appoinments and another attempt to call will be made in seven days. At seven days if the pateint does not respond, request letter to be sent to the patient. Pateint will be given 14 days to respond once the letter is mailed. If after 14 days, the pateint does not respond, the patient's Primary Care and Oncology privider will be notified. missed scheduled appointment. First unsuccessful attempt at phone contact made. Left message for to contact EXT [phone]. Other:VET WAS AT [facility] AFTER HIS CABG - SO GAVE HIM TIME TO RECOVER- NOW CALLED AND LVM TO CALL BACK TO SCHEDULE APPT TO SEE DR CHAU- AT EXT [phone] /es/ AIMEE AGUILA,RN REGISTERED NURSE Signed: 09/08/2024 14:48 RITA ASH [facility]
--- OUTSIDE RECORDS SUMMARY | 2024-11-17 04:21 | XMS_ITS | Encounter Summary ---
Author Name [facility] [place] Organization [facility] [place] Address [address] [place] [address] Care Team Providers Care Lighting Technician Name Role Phone MANUEL BAIRD Primary [...] PART A Apr 08, 2017 PART A [id number] [phone] ASHLEY WALKER PATIENT Selected Encounter This section includes the information on record at [place] for the Encounter. Date/Time Encounter Type Encounter Description Reason Pro vider Source Sep 08, 2024 09:37 AM Outpatient Encounter ADMIN PAT ACTIVTIES (MASNONCT) [...] 20 appointments. The data comes from all [facility]. Appointment Date/Time Appointment Type Appointme nt Facility Name Sep 21, 2024 01:30 PM AMBULATORY - MEDICINE [facility] Sep 22, 2024 11:00 AM AMBULATORY - MEDICINE [facility] Sep 29, 2024 12:30 PM AMBULATORY - MEDICINE [facility] Oct 02, 2024 09:30 AM AMBULATORY - MEDICINE [facility] Nov 20, 2024 10:30 AM AMBULATORY - SURGERY [facility] Nov 21, 2024 10:00 AM AMBULATORY - NONE . [facility] Dec 11, [...] of theEncounter. The data comes from all [facility]. Test Date/Time Test Type Test Details Facility Name Aug 02, 2024 12:00 AM Laboratory - Chemistry Order CBC BLOOD STAT [facility] Aug 02, 2024 12:00 AM Laboratory - Chemistry Order COMPREHENSIVE METABOLIC PANEL GREEN LI/HEP BLD/PLAS PLASMA SP [facility] Aug 17, 2024 03:47 PM Consult Order [facility] Cons Bedside [place] [...] Aug 22, 2024 11:26 AM Reporting Lab: [facility] [facility] [address] Performing Lab: [facility] [facility] [address] MAGNESIUM 1.8 mg/dL 1.6-2.6 Aug 23, 2024 08:21 AM [facility] CBC Specimen Type: BLOOD No comment entered. Ordering Provider: SILVIA REDDY Report Released Date/Time: Aug 22, 2024 11:19 AM Reporting Lab: [facility] [address] Performing Lab: [facility] [address] WBC 4.0 10*3/uL 3.6-11.2 RBC 3.65 10*6/uL [...] 05:12 AM [facility] GLUCOSE,BLOOD-poct (STL) Specimen Type: BLOOD Comment: Test Performed by: [id number] Meter #: [id number] Ordering Provider: SILVIA REDDY Report Released Date/Time: Aug 23, 2024 05:23 AM Reporting Lab: [facility] [address] Performing Lab: [facility] #[facility] [address] GLUCOSE,BLOOD- poct (STL) 99 mg/dL 72-99 Aug 23, 2024 02:45 AM [facility] OCCULT BLOOD FIT X1 SCREEN Specimen Type: FECES No comment entered. Ordering Provider: SILVIA REDDY Report Released Date/Time: Aug 22, 2024 11:23 AM Reporting Lab: [address] [address] Performing Lab: [address] [address] OCCULT BLOOD (FIT) #1 OF 1 Negative Negative Aug 22, 2024 07:30 PM [facility] OCCULT BLOOD FIT X1 SCREEN Specimen Type: FECES No comment entered. Ordering Provider: SILVIA REDDY Report Released Date/Time: Aug 22, 2024 11:23 AM Reporting Lab: [address] [address] Performing Lab: [address] [address] OCCULT BLOOD (FIT) #1 OF 1 Negative Negative Aug 22, 2024 06:15 PM [facility] OCCULT BLOOD FIT X1 SCREEN Specimen Type: FECES No comment entered. Ordering Provider: SILVIA REDDY Report Released Date/Time: Aug 22, 2024 11:23 AM Reporting Lab: [address] [address] Performing Lab: [address] [address] OCCULT BLOOD (FIT) #1 OF 1 Negative Negative Aug 22, 2024 04:24 PM [facility] GLUCOSE,BLOOD-poct (STL) Specimen Type: BLOOD Comment: Test Performed by: [id number] Meter #: [id number] Ordering Provider: SILVIA REDDY Report Released Date/Time: Aug 22, 2024 04:36 PM Reporting Lab: [facility] [address] Performing Lab: [facility] [address] GLUCOSE,BLOOD- poct (STL) 176 mg/dL H 72-99 Aug 22, 2024 04:23 PM [facility] GLUCOSE,BLOOD-poct (STL) Specimen Type: BLOOD Comment: Test Performed by: [id number] Meter #: [id number] Ordering Provider: SILVIA REDDY Report Released Date/Time: Aug 22, 2024 04:36 PM Reporting Lab: [facility] [address] Performing Lab: [facility] [facility] [address] GLUCOSE,BLOOD- poct (STL) 221 mg/dL H 72-99 Aug 22, 2024 11:15 AM [facility] GLUCOSE,BLOOD-poct (STL) Specimen Type: BLOOD Comment: Test Performed by: [id number] Meter #: [id number] Ordering Provider: SILVIA REDDY Report Released Date/Time: Aug 22, 2024 11:27 AM Reporting Lab: [facility] [address] Performing Lab: [facility] [address] GLUCOSE,BLOOD- poct (STL) 140 mg/dL H 72-99 Aug 22, 2024 08:03 AM [facility] FERRITIN Specimen Type: SERUM No comment entered. Ordering Provider: JUDIT PERKINS Report Released Date/Time: Aug 18, 2024 11:01 AM Reporting Lab: [address] [address] Performing Lab: [facility] [address] [facility] [address] FERRITIN 79.50 ng/mL 22-275 Aug 22, 2024 08:03 AM [facility] IRON/TIBC PROFILE Specimen Type: SERUM No comment entered. Ordering Provider: JUDIT PERKINS Report Released Date/Time: Aug 18, 2024 11:01 AM Reporting Lab: [facility] [address] [place] [address] Performing Lab: [facility] [address] [place] [address] TIBC 283 ug/dL 250-450 TRANSFERRIN 226 mg/dL 163-344 IRON SATURATION 7 L 20-50 IRON 19 ug/dL L 65-175 Aug 22, 2024 08:03 AM [facility] B12 Specimen Type: SERUM No comment entered. Ordering Provider: JUDIT PERKINS Report Released Date/Time: Aug 18, 2024 11:01 AM Reporting Lab: [facility] [facility] [address] Performing Lab: [facility] [facility] [address] B12 631 pg/mL 213-816 Aug 22, 2024 08:03 AM [facility] COMPREHENSIVE METABOLIC PANEL Specimen Type: PLASMA Comment: No hemolysis noted. Ordering Provider: SILVIA REDDY Report Released Date/Time: Aug 17, 2024 01:18 PM Reporting Lab: [facility] [address] [place] [address] Performing Lab: [facility] [address] [place] [address] CREATININE 0.80 mg/dL 0.7-1.3 UREA NITROGEN 9.7 [...] 94.0 >60 Aug 22, 2024 08:03 AM [facility] CBC Specimen Type: BLOOD No comment entered. Ordering Provider: SILVIA REDDY Report Released Date/Time: Aug 17, 2024 01:18 PM Reporting Lab: [facility] [facility] [address] Performing Lab: [facility] [facility] [address] WBC 3.5 10*3/uL L 3.6-11.2 RBC 3.23 [...] 05:03 AM [facility] GLUCOSE,BLOOD-poct (STL) Specimen Type: BLOOD Comment: Test Performed by: [id number] Meter #: [id number] Ordering Provider: SILVIA REDDY Report Released Date/Time: Aug 22, 2024 06:17 AM Reporting Lab: [facility] [facility] [address] Performing Lab: [facility] [facility] [address] GLUCOSE,BLOOD- poct (STL) 170 mg/dL H 72-99 Aug 21, 2024 04:32 PM [facility] GLUCOSE,BLOOD-poct (STL) Specimen Type: BLOOD Comment: Test Performed by: [id number] Meter #: [id number] Ordering Provider: SILVIA REDDY Report Released Date/Time: Aug 21, 2024 04:49 PM Reporting Lab: [facility] [facility] [address] Performing Lab: [facility] [facility] [address] GLUCOSE,BLOOD- poct (STL) 169 mg/dL H 72-99 Aug 21, 2024 11:53 AM [facility] GLUCOSE,BLOOD-poct (STL) Specimen Type: BLOOD Comment: Test Performed by: [id number] Meter #: [id number] Ordering Provider: SILVIA REDDY Report Released Date/Time: Aug 21, 2024 12:11 PM Reporting Lab: [facility] [facility] [address] Performing Lab: [facility] [facility] [address] GLUCOSE,BLOOD- poct (STL) 149 mg/dL H 72-99 Aug 21, 2024 05:10 AM [facility] GLUCOSE,BLOOD-poct (STL) Specimen Type: BLOOD Comment: Test Performed by: [id number] Meter #: [id number] Ordering Provider: SILVIA REDDY Report Released Date/Time: Aug 21, 2024 05:27 AM Reporting Lab: [facility] [facility] [address] Performing Lab: [facility] [facility] [address] GLUCOSE,BLOOD- poct (STL) 118 mg/dL H -Aug 20, 2024 04:38 PM [facility] GLUCOSE,BLOOD-poct (STL) Specimen Type: BLOOD Comment: Test Performed by: [id number] Meter #: [id number] Ordering Provider: SILVIA REDDY Report Released Date/Time: Aug 21, 2024 01:55 AM Reporting Lab: [facility] [facility] [address] Performing Lab: [facility] #[address] [facility] [address] GLUCOSE,BLOOD- poct (STL) 169 mg/dL H -Aug 20, 2024 04:36 PM [facility] GLUCOSE,BLOOD-poct (STL) Specimen Type: BLOOD Comment: Test Performed by: [id number] Meter #: [id number] Ordering Provider: SILVIA REDDY Report Released Date/Time: Aug 21, 2024 01:55 AM Reporting Lab: [facility] [facility] [address] Performing Lab: [facility] [facility] [address] GLUCOSE,BLOOD- poct (STL) 395 mg/dL H -Aug 20, 2024 11:45 AM [facility] GLUCOSE,BLOOD-poct (STL) Specimen Type: BLOOD Comment: Test Performed by: [id number] Meter #: [id number] Ordering Provider: SILVIA REDDY Report Released Date/Time: Aug 20, 2024 11:56 AM Reporting Lab: [facility] [facility] [address] Performing Lab: [facility] #[address] [facility] [address] GLUCOSE,BLOOD- poct (STL) 169 mg/dL H -Aug 20, 2024 05:06 AM [facility] GLUCOSE,BLOOD-poct (STL) Specimen Type: BLOOD Comment: Test Performed by: [id number] Meter #: [id number] Ordering Provider: SILVIA REDDY Report Released Date/Time: Aug 20, 2024 06:05 AM Reporting Lab: [facility] [facility] [address] Performing Lab: [facility] [address] GLUCOSE,BLOOD- poct (STL) 115 mg/dL H 72-Aug 19, 2024 04:23 PM [facility] GLUCOSE,BLOOD-poct (STL) Specimen Type: BLOOD Comment: Test Performed by: [id number] Meter #: [id number] Ordering Provider: SILVIA REDDY Report Released Date/Time: Aug 19, 2024 05:54 PM Reporting Lab: [facility] [facility] [address] Performing Lab: [facility] [address] GLUCOSE,BLOOD- poct (STL) 137 mg/dL H -Aug 19, 2024 11:28 AM [facility] GLUCOSE,BLOOD-poct (STL) Specimen Type: BLOOD Comment: Test Performed by: [id number] Meter #: [id number] Ordering Provider: SILVIA REDDY Report Released Date/Time: Aug 19, 2024 11:51 AM Reporting Lab: [facility] [facility] [address] Performing Lab: [facility] [facility] [address] GLUCOSE,BLOOD- poct (STL) 190 mg/dL H -Aug 19, 2024 05:21 AM [facility] GLUCOSE,BLOOD-poct (STL) Specimen Type: BLOOD Comment: Test Performed by: [id number] Meter #: [id number] Ordering Provider: SILVIA REDDY Report Released Date/Time: Aug 19, 2024 05:56 AM Reporting Lab: [facility] [facility] [address] Performing Lab: [facility] [facility] [address] GLUCOSE,BLOOD- poct (STL) 130 mg/dL H 72-Aug 18, 2024 04:49 PM [facility] GLUCOSE,BLOOD-poct (STL) Specimen Type: BLOOD Comment: Test Performed by: [id number] Meter #: [id number] Ordering Provider: SILVIA REDDY Report Released Date/Time: Aug 18, 2024 05:01 PM Reporting Lab: [facility] [facility] [address] Performing Lab: [facility] #[address] [facility] [address] GLUCOSE,BLOOD- poct (STL) 129 mg/dL H -Aug 18, 2024 11:23 AM [facility] GLUCOSE,BLOOD-poct (STL) Specimen Type: BLOOD Comment: Test Performed by: [id number] Meter #: [id number] Ordering Provider: SILVIA REDDY Report Released Date/Time: Aug 18, 2024 11:41 AM Reporting Lab: [facility] [facility] [address] Performing Lab: [facility] [facility] [address] GLUCOSE,BLOOD- poct (STL) 180 mg/dL H 72-Aug 18, 2024 05:08 AM [facility] GLUCOSE,BLOOD-poct (STL) Specimen Type: BLOOD Comment: Test Performed by: [id number] Meter #: [id number] Ordering Provider: SILVIA REDDY Report Released Date/Time: Aug 18, 2024 05:31 AM Reporting Lab: [facility] [facility] [address] Performing Lab: [facility] [facility] [address] GLUCOSE,BLOOD- poct (STL) 127 mg/dL H -Aug 17, 2024 07:32 PM [facility] GLUCOSE,BLOOD-poct (STL) Specimen Type: BLOOD Comment: Test Performed by: [id number] Meter #: [id number] Ordering Provider: SILVIA REDDY Report Released Date/Time: Aug 17, 2024 07:59 PM Reporting Lab: [facility] [facility] [address] Performing Lab: [facility] [facility] [address] GLUCOSE,BLOOD- poct (STL) 154 mg/dL H -Aug 17, 2024 04:24 PM [facility] GLUCOSE,BLOOD-poct (STL) Specimen Type: BLOOD Comment: Test Performed by: [id number] Meter #: [id number] Ordering Provider: SILVIA REDDY Report Released Date/Time: Aug 17, 2024 04:35 PM Reporting Lab: [facility] [address] Performing Lab: [facility] [facility] [address] GLUCOSE,BLOOD- poct (STL) 178 mg/dL H -Aug 17, 2024 05:09 AM [facility] GLUCOSE,BLOOD-poct (STL) Specimen Type: BLOOD Comment: Test Performed by: [id number] Meter #: [id number] Ordering Provider: SILVIA REDDY Report Released Date/Time: Aug 17, 2024 05:54 AM Reporting Lab: [facility] [address] Performing Lab: [facility] [facility] [address] GLUCOSE,BLOOD- poct (STL) 124 mg/dL H Aug 16, 2024 07:40 PM [facility] GLUCOSE,BLOOD-poct (STL) Specimen Type: BLOOD Comment: Test Performed by: [id number] Meter #: [id number] Ordering Provider: SILVIA REDDY Report Released Date/Time: Aug 16, 2024 08:28 PM Reporting Lab: [facility] [facility] [address] Performing Lab: [facility] [address] GLUCOSE,BLOOD- poct (STL) 144 mg/dL H Aug 16, 2024 04:19 PM [facility] GLUCOSE,BLOOD-poct (STL) Specimen Type: BLOOD Comment: Test Performed by: [id number] Meter #: [id number] Ordering Provider: SILVIA REDDY Report Released Date/Time: Aug 16, 2024 04:45 PM Reporting Lab: [facility] [address] Performing Lab: [facility] [address] GLUCOSE,BLOOD- poct (STL) 138 mg/dL H Aug 16, 2024 11:52 AM [facility] GLUCOSE,BLOOD-poct (STL) Specimen Type: BLOOD Comment: Test Performed by: [id number] Meter #: [id number] Ordering Provider: SILVIA REDDY Report Released Date/Time: Aug 16, 2024 12:04 PM Reporting Lab: [facility] [facility] [address] Performing Lab: [facility] [address] GLUCOSE,BLOOD- poct (STL) 135 mg/dL H Aug 16, 2024 05:24 AM [facility] GLUCOSE,BLOOD-poct (STL) Specimen Type: BLOOD Comment: Test Performed by: [id number] Meter #: [id number] Ordering Provider: SILVIA REDDY Report Released Date/Time: Aug 16, 2024 05:38 AM Reporting Lab: [facility] [address] Performing Lab: [facility] [facility] [address] GLUCOSE,BLOOD- poct (STL) 151 mg/dL H 72-Aug 15, 2024 07:31 PM [facility] GLUCOSE,BLOOD-poct (STL) Specimen Type: BLOOD Comment: Test Performed by: [id number] Meter #: [id number] Ordering Provider: SILVIA REDDY Report Released Date/Time: Aug 15, 2024 08:07 PM Reporting Lab: [facility] [address] Performing Lab: [facility] [address] GLUCOSE,BLOOD- poct (STL) 173 mg/dL H -Aug 15, 2024 04:18 PM [facility] GLUCOSE,BLOOD-poct (STL) Specimen Type: BLOOD Comment: Test Performed by: [id number] Meter #: [id number] Ordering Provider: SILVIA REDDY Report Released Date/Time: Aug 15, 2024 04:59 PM Reporting Lab: [facility] [address] Performing Lab: [facility] [address] GLUCOSE,BLOOD- poct (STL) 136 mg/dL H 72-Aug 15, 2024 04:16 PM [facility] GLUCOSE,BLOOD-poct (STL) Specimen Type: BLOOD Comment: Test Performed by: [id number] Meter #: [id number] Ordering Provider: SILVIA REDDY Report Released Date/Time: Aug 15, 2024 04:59 PM Reporting Lab: [facility] [address] Performing Lab: [facility] [address] GLUCOSE,BLOOD- poct (STL) 194 mg/dL H -Aug 15, 2024 11:39 AM [facility] GLUCOSE,BLOOD-poct (STL) Specimen Type: BLOOD Comment: Test Performed by: [id number] Meter #: [id number] Ordering Provider: SILVIA REDDY Report Released Date/Time: Aug 15, 2024 12:00 PM Reporting Lab: [facility] [address] Performing Lab: [facility] [address] GLUCOSE,BLOOD- poct (STL) 127 mg/dL H Aug 15, 2024 05:07 AM [facility] GLUCOSE,BLOOD-poct (STL) Specimen Type: BLOOD Comment: Test Performed by: [id number] Meter #: [id number] Ordering Provider: SILVIA REDDY Report Released Date/Time: Aug 15, 2024 06:14 AM Reporting Lab: [facility] [address] Performing Lab: [facility] [address] GLUCOSE,BLOOD- poct (STL) 151 mg/dL H Aug 14, 2024 04:22 PM [facility] GLUCOSE,BLOOD-poct (STL) Specimen Type: BLOOD Comment: Test Performed by: [id number] Meter #: [id number] Ordering Provider: SILVIA REDDY Report Released Date/Time: Aug 14, 2024 04:52 PM Reporting Lab: [facility] [address] Performing Lab: [facility] [address] GLUCOSE,BLOOD- poct (STL) 129 mg/dL H Aug 14, 2024 11:[address] [facility] GLUCOSE,BLOOD-poct (STL) Specimen Type: BLOOD Comment: Test Performed by: [id number] Meter #: [id number] Ordering Provider: SILVIA REDDY Report Released Date/Time: Aug 14, 2024 11:37 AM Reporting Lab: [facility] [address] Performing Lab: [facility] [address] GLUCOSE,BLOOD- poct (STL) 135 mg/dL H 72-99 Aug 14, 2024 06:59 AM [facility] QUANTIFERON-TB,4 TUBE Specimen Type: BLOOD [...] For additional information, please refer to http://education. [employer]. Electric Cloud/faq/VVK871 (This link is being provided for information/ educational purposes only.) Test Performed by [employer] [facility], [address] [place], [place] Tommie Garcia M.D., Ph.D., Director of Laboratories , [facility] [id number] Ordering Provider: SILVIA REDDY Report Released Date/Time: Aug 11, 2024 03:58 PM Reporting Lab: [facility] [address] [place] [phone] Performing Lab: [facility] [address] [facility] [id number] .NIL - QUANTIFERON 0.04 [IU]/mL .MITOGEN-NIL 0.39 [IU]/mL .QUANTIFERON INDETERMINATE NEGATIVE .TB1-NIL <0.00 [IU]/mL .TB2-NIL <0.00 [IU]/mL Aug 14, 2024 06:59 AM [facility] MAGNESIUM Specimen Type: PLASMA Comment: No hemolysis noted. Ordering Provider: SILVIA REDDY Report Released Date/Time: Aug 11, 2024 03:58 PM Reporting Lab: [facility] #[address] [facility] [phone] Performing Lab: [facility] #[address] [facility] [phone] MAGNESIUM 1.9 mg/dL 1.6-2.6 Aug 14, 2024 06:59 AM [facility] B12 Specimen Type: SERUM No comment entered. Ordering Provider: SILVIA REDDY Report Released Date/Time: Aug 11, 2024 03:58 PM Reporting Lab: [facility] [facility] [address] Performing Lab: [facility] [facility] [phone] B12 757 pg/mL 213-816 Aug 14, 2024 06:59 AM [facility] VITAMIN D, 25-HYDROXY Specimen Type: SERUM No comment entered. Ordering Provider: SILVIA REDDY Report Released Date/Time: Aug 11, 2024 03:58 PM Reporting Lab: [facility] [facility] [phone] Performing Lab: [facility] #[address] [place] [phone] VITAMIN D, 25-HYDROXY 8.9 ng/mL L 30-96 Aug 14, 2024 06:59 AM [facility] FOLATE (STL-MA) Specimen Type: SERUM No comment entered. Ordering Provider: SILVIA REDDY Report Released Date/Time: Aug 11, 2024 03:58 PM Reporting Lab: [facility] [address] [place] [address] Performing Lab: [facility] [address] [place] [address] FOLATE (STL-MA) 6.8 ng/mL L 7-20 Aug 14, 2024 06:59 AM [facility] COMPREHENSIVE METABOLIC PANEL Specimen Type: PLASMA Comment: No hemolysis noted. Ordering Provider: SILVIA REDDY Report Released Date/Time: Aug 11, 2024 03:58 PM Reporting Lab: [facility] [address] [place] [address] Performing Lab: [facility] [place] [address] CREATININE 0.75 mg/dL 0.70-1.30 UREA NITROGEN 13.6 [...] Reporting Lab: [facility] [place] [address] Performing Lab: [facility] [place] [address] WBC 4.1 10*3/uL 3.6-11.2 RBC 3.20 10*6/uL [...] 10*3/uL 0.00-0.20 Aug 14, 2024 05:08 AM [facility] GLUCOSE,BLOOD-poct (STL) Specimen Type: BLOOD Comment: Test Performed by: [id number] Meter #: [id number] Ordering Provider: SILVIA REDDY Report Released Date/Time: Aug 14, 2024 05:52 AM Reporting Lab: [facility] [address] Performing Lab: [facility] [address] GLUCOSE,BLOOD- poct (STL) 135 mg/dL H 72-99 Aug 13, 2024 04:27 PM [facility] GLUCOSE,BLOOD-poct (STL) Specimen Type: BLOOD Comment: Test Performed by: [id number] Meter #: [id number] Ordering Provider: SILVIA REDDY Report Released Date/Time: Aug 13, 2024 04:41 PM Reporting Lab: [facility] [address] Performing Lab: [facility] [address] GLUCOSE,BLOOD- poct (STL) 181 mg/dL H -Aug 13, 2024 11:33 AM [facility] GLUCOSE,BLOOD-poct (STL) Specimen Type: BLOOD Comment: Test Performed by: [id number] Meter #: [id number] Ordering Provider: SILVIA REDDY Report Released Date/Time: Aug 13, 2024 03:55 PM Reporting Lab: [facility] [address] Performing Lab: [facility] #1 [facility] [address] GLUCOSE,BLOOD- poct (STL) 140 mg/dL H Aug 13, 2024 05:54 AM [facility] GLUCOSE,BLOOD-poct (STL) Specimen Type: BLOOD Comment: Test Performed by: [id number] Meter #: [id number] Ordering Provider: SILVIA REDDY Report Released Date/Time: Aug 13, 2024 06:20 AM Reporting Lab: [facility] #[facility] [address] Performing Lab: [facility] #[facility] [address] GLUCOSE,BLOOD- poct (STL) 112 mg/dL H Aug 12, 2024 04:35 PM [facility] GLUCOSE,BLOOD-poct (STL) Specimen Type: BLOOD Comment: Test Performed by: [id number] Meter #: [id number] Ordering Provider: SILVIA REDDY Report Released Date/Time: Aug 12, 2024 04:47 PM Reporting Lab: [facility] [address] Performing Lab: [facility] [address] GLUCOSE,BLOOD- poct (STL) 128 mg/dL H -Aug 12, 2024 11:26 AM [facility] GLUCOSE,BLOOD-poct (STL) Specimen Type: BLOOD Comment: Test Performed by: [id number] Meter #: [id number] Ordering Provider: SILVIA REDDY Report Released Date/Time: Aug 12, 2024 11:45 AM Reporting Lab: [facility] #[facility] [address] Performing Lab: [facility] [address] GLUCOSE,BLOOD- poct (STL) 188 mg/dL H Aug 12, 2024 06:13 AM [facility] GLUCOSE,BLOOD-poct (STL) Specimen Type: BLOOD Comment: Test Performed by: [id number] Meter #: [id number] Ordering Provider: SILVIA REDDY Report Released Date/Time: Aug 12, 2024 06:25 AM Reporting Lab: [facility] [address] Performing Lab: [facility] [address] GLUCOSE,BLOOD- poct (STL) 116 mg/dL H Aug 11, 2024 04:10 PM [facility] GLUCOSE,BLOOD-poct (STL) Specimen Type: BLOOD Comment: Test Performed by: [id number] Meter #: [id number] Ordering Provider: SILVIA REDDY Report Released Date/Time: Aug 11, 2024 04:27 PM Reporting Lab: [facility] [address] Performing Lab: [facility] [address] GLUCOSE,BLOOD- poct (STL) 184 mg/dL H -Aug 11, 2024 01:44 PM [facility] [...] epidemiological information for final interpretation. Ordering Provider: SIVLIA REDDY Report Released Date/Time: Aug 11, 2024 02:03 PM Reporting Lab: [facility] [address] [facility] [address] Performing Lab: [facility] [address] [facility] [address] MRSA SURVL NARES DNA Negative Negative Social [...] DIRECTIVE DISCUSSION ERICK BARDALES [facility] Encounter Notes: All associated encounter notes This section contains the clinical notes associated to the Encounter. Date/Time Encounter Note(s) Provider Source Sep 08, 2024 09:37 AM ADMINISTRATIVE NOT E: LOCAL TITLE: ADMINISTRATIVE STL STANDARD TITLE: ADMINISTRATIVE NOTE DATE OF NOTE: SEP 08, 2024@09:37 ENTRY DATE: SEP 08, 2024@09:38:45 AUTHOR: DICKSON CASPER EXP COSIGNER: URGENCY: STATUS: COMPLETED ADMINISTRATIVE STL Has ADDENDA Received fax from [facility] about discharge summary. Fax placed in provider's folder for review. /shen/ DICKSON CASPER [facility] Signed: 09/08/2024 09:42 Receipt Acknowledged By: 09/11/2024 11:55 /shen/ CHARITY HALL REGISTERED NURSE 09/11/2024 ADDENDUM STATUS: COMPLETED D/C summary from [facility] 09/01/24-09/07/24 Pt is a 74 yo CM with hx including CAD, asthma, DM, GERD with hiatal hernia, HTN, heart block. He had completed 3-vessel CABG on 07/24 at the [place], subsequently with pacemaker placement for heart block. He presented to [facility] on 09/01 for abd pain - CT showed acute cholecystitis. Surgery there declined to intervene because of his recent cardiac surgery and he was transferred to [facility]. Upon arrival he was seen by Cardiology, [...] to discharge, but should continue wound care. /shen/ CHARITY HALL REGISTERED NURSE Signed: 09/11/2024 11:53 DICKSON CASPER [facility]
--- OUTSIDE RECORDS SUMMARY | 2024-11-17 04:22 | XMS_ITS | Encounter Summary ---
Author Name [facility] Organization [facility] [place] [facility] [place] Address [address] [place] [address] Care Team Providers Care Heavy Mobile Equipment Repairer Name Role Phone MANUEL THOMAS Primary Care [...] PART A Apr 08, 2017 PART A [id number] ASHLEY WALKER PATIENT Selected Encounter This section includes the information on record at [place] for the Encounter. Date/Time Encounter Type Encounter Description Reason Provider Source Sep 29, 2024 07:01 AM Outpatient Encounter GENERAL INTERNAL MEDICINE MANUEL THOMAS Nav Encounter Template Text not used by [place] Plan of Treatment: Future Appointments (+ 6 [...] 20 appointments. The data comes from all [place] treatment facilities. Appointment Date/Time Appointment Type Appointme nt Facility Name Oct 02, 2024 09:30 AM AMBULATORY - MEDICINE [facility] Nov 20, 2024 10:30 AM AMBULATORY - SURGERY . Julián JOLLEY [facility] Nov 21, 2024 10:00 AM AMBULATORY - NONE [facility] LESIA Hirsch [facility] Dec 11, 2024 10:30 AM AMBULATORY - MEDICINE [facility] Active, Pending, and Scheduled Orders This section [...] Test Type Test Details Facility Name Aug 17, 2024 03:47 PM Consult Order [facility]ILL[facility] HOME CARE STL Cons Bedside [facility] Social History: Smoking Status (Most current) and [...] AM QUIT TOBACCO >7 YEARS AGO [facility] Tobacco Use History This section includes a history of the smoking, or tobacco-related health factors, that were collected on or before the date of the Encounter. The data comes from the [place] facility where the Encounter took place. Date/Time Smoking Status/Tobacco Use Comment Juan acility Sep 30, 2015 10:12 AM QUIT TOBACCO >7 YEARS AGO [facility] Oct 29, 2014 10:23 AM QUIT TOBACCO >7 YEARS AGO [facility] Dec 27, 2013 01:27 PM QUIT TOBACCO >7 YEARS AGO [facility] Feb 24, 2013 02:01 PM LIFETIME NON-USER OF TOBACCO [facility] Feb 11, 2009 10:09 AM QUIT TOBACCO >7 YEARS AGO [facility] Oct 06, 2006 09:30 AM CURRENT NON-TOBACC O USER-HX OF USE [facility] Oct 06, 2006 09:30 AM TOBACCO TERMINATION STAGE [facility] Advance Directives: All historical and current Section Date Range: From patient's date of to the date document was created. This section includes ALL of a patient's completed or amended [place] Advance and Rescinded Directives. The entries below indicate that a directive exists for the patient, but an actual copy is not included with this document. The data comes from all [facility]. Date Advance Directives Provider Source Jan 19, 2017 ADVANCE DIRECTIVE DISCUSSION ERICK BARDALES [facility] Encounter Notes: All associated encounter notes This section contains the clinical notes associated to the Encounter. Date/Time Encounter Note(s) Provider Source Oct 06, 2024 09:10 AM ADDENDUM: LOCAL TITLE: Addendum STANDARD TITLE: ADDENDUM DATE OF NOTE: OCT 06, 2024@09:10:22 ENTRY DATE: OCT 06, 2024@09:10:23 AUTHOR: YESSI JOHNSON EXP COSIGNER: URGENCY: STATUS: COMPLETED Discharge Disposition Date of discharge: Sep Disposition Discharge to Penitentiary Facility Comment: return to home facility No f/u recommendations identified. Records r/t this episode of care received; sent to [facility] for scanning. [place] records sent securely to [facility]. EOC complete. /shen/ YESSI JOHNSON REGISTERED NURSE Signed: 10/06/2024 09:12 Receipt Acknowledged By: 10/06/2024 15:44 /shen/ CHARITY HALL REGISTERED NURSE 10/10/2024 11:01 /shen/ manuel thomas M.D. Staff Physician --- Original Document --- 09/27/24 [facility] PRESENTING CARE COORD PLAN 657 STL: Emergency Notification Intake Date Presenting to the Facility: Sep Method of Contact: Notified from ECR worklist Notification ID: [id number] HSRM Referral #: [id number] Clinical Review [facility] [place] [facility]: Hospital: [facility] Address: [address]: [place] State: [place] Zip Code: [address] [facility] Facility Point of Contact: Name: Altagracia Martinez Chief complaint: Fall Injury Primary Diagnosis: Disposition Unknown at time of intake note entry NO records available for this episode of care in [facility] or [facility]. Faxed request for records to [facility] /shen/ SRAVANTHI LONG [facility] TH[facility] Signed: 09/29/2024 07:05 Receipt Acknowledged By: 09/29/2024 08:50 /shen/ CHARITY HALL REGISTERED NURSE 09/29/2024 09:44 /shen/ manuel thomas M.D. Staff Physician * AWAITING SIGNATURE * YVONNE CARLSON 10/02/2024 09:01 /shen/ YESSI JOHNSON REGISTERED NURSE 10/04/2024 ADDENDUM STATUS: COMPLETED Message left for Deb Melendez at [facility] requesting clinical update. /shen/ YESSI JOHNSON REGISTERED NURSE Signed: 10/04/2024 12:42 YESSI JOHNSON [facility] Sep 27, 2024 07:01 AM NONVA NOTE: LOCAL TITLE: [facility]-EY[facility] SELF PRESENTING CARE COORD PLAN STANDARD TITLE: NONVA NOTE DATE OF NOTE: SEP 27, 2024@07:01 ENTRY DATE: SEP 29, 2024@07:02:06 AUTHOR: SRAVANTHI LONG EXP COSIGNER: URGENCY: STATUS: COMPLETED [facility] SELF PRESENTING CARE COORD PLAN 657 STL Has ADDENDA Emergency Notification Intake Date Presenting to the Facility: Sep Method of Contact: Notified from [facility] worklist Notification ID: [id number] RM Referral #: [id number] Clinical Review [facility] [place] Name: Hospital: [facility] Address: [address]: [place] State: [place] Zip Code: [address] [facility] Facility Point of Contact: Name: Altagracia Martinez Chief complaint: Fall Injury Primary Diagnosis: Disposition Unknown at time of intake note entry NO records available for this episode of care in [facility] or [facility]. Faxed request for records to [facility] /shen/ SRAVANTHI LONG [facility] Signed: 09/29/2024 07:05 Receipt Acknowledged By: 09/29/2024 08:50 /shen/ CHARITY HALL REGISTERED NURSE 09/29/2024 09:44 /shen/ manuel thomas M.D. Staff Physician * AWAITING SIGNATURE * YVONNE CARLSON 10/02/2024 09:01 /shen/ YESSI JOHNSON REGISTERED NURSE 10/04/2024 ADDENDUM STATUS: COMPLETED Message left for Deb Farmerowen at [facility] requesting clinical update. /shen/ YESSI JOHNSON REGISTERED NURSE Signed: 10/04/2024 12:42 10/06/2024 ADDENDUM STATUS: COMPLETED Discharge Disposition Date of discharge: Sep Disposition Discharge to Penitentiary Facility Comment: return to home facility No f/u recommendations identified. Records r/t this episode of care received; sent to [facility] for scanning. [place] records sent securely to [facility]. EOC complete. /shen/ YESSI JOHNSON REGISTERED NURSE Signed: 10/06/2024 09:12 Receipt Acknowledged By: * AWAITING SIGNATURE * CHARITY HALL * AWAITING SIGNATURE * MANUEL THOMAS [facility]
--- OUTSIDE RECORDS SUMMARY | 2024-11-17 04:22 | XMS_ITS ---
Author Name [facility] [place] Organization [place] Address [address] [place] [address] Care Team Providers Care Pilot Submersible Name Role Phone MANUEL BAIRD Primary Care [...] PART A Apr 08, 2017 PART A [id number] 79A ASHLEY FINK PATIENT Selected Encounter This section includes the information on record at [place] for the Encounter. Date/Time Encounter Type Encounter Description Reason Pro vider Source Sep 21, 2024 01:54 PM Outpatient Encounter ADMIN PAT ACTIVTIES (MASNONCT) [...] appointments. The data comes from all [facility]. Appointment Date/Time Appointment Type Appointme nt Facility Name Sep 22, 2024 11:00 AM AMBULATORY - MEDICINE [facility] Sep 29, 2024 12:30 PM AMBULATORY - MEDICINE [facility] Oct 02, 2024 09:30 AM AMBULATORY - MEDICINE [facility] Nov 20, 2024 10:30 AM AMBULATORY - SURGERY [facility] Nov 21, 2024 10:00 AM AMBULATORY - NONE [facility] Dec 11, 2024 [...] theEncounter. The data comes from all [facility]. Test Date/Time Test Type Test Details Facility Name Aug 17, 2024 03:47 PM Consult Order [facility]ILL[facility] HOME CARE STL Cons Bedside [facility] [...] Range Comment Aug 23, 2024 08:21 AM [facility] MAGNESIUM Specimen Type: PLASMA No comment entered. Ordering Provider: DIXON REDDY Report Released Date/Time: Aug 22, 2024 11:26 AM Reporting Lab: [facility]1 [facility] [address] Performing Lab: [facility] #1 [facility] [address] MAGNESIUM 1.8 mg/dL 1.6-2.6 Aug 23, 2024 08:21 AM [facility] CBC Specimen Type: BLOOD No comment entered. Ordering Provider: DIXON REDDY Report Released Date/Time: Aug 22, 2024 11:19 AM Reporting Lab: [facility]1 [facility] [address] Performing Lab: [facility]1 [facility] [address] WBC 4.0 10*3/uL 3.6-11.2 RBC 3.65 10*6/uL [...] 10*3/uL 0.00-0.20 Aug 23, 2024 05:12 AM [facility] GLUCOSE,BLOOD-poct (STL) Specimen Type: BLOOD Comment: Test Performed by: [id number] Meter #: [id number] Ordering Provider: DIXON REDDY Report Released Date/Time: Aug 23, 2024 05:23 AM Reporting Lab: [facility] [address] Performing Lab: [facility] [address] GLUCOSE,BLOOD -poct (STL) 99 mg/dL 72-99 Aug 23, 2024 02:45 AM [facility] OCCULT BLOOD FIT X1 SCREEN Specimen Type: FECES No comment entered. Ordering Provider: DIXON REDDY Report Released Date/Time: Aug 22, 2024 11:23 AM Reporting Lab: [facility] [address] [place] [place] [address] Performing Lab: [facility] [address] [facility] [address] OCCULT BLOOD (FIT) #1 OF 1 Negative Negative Social History: Smoking Status (Most [...] BARDALES [facility] Encounter Notes: All associated encounter notes This section contains the clinical notes associated to the Encounter. Date/Time Encounter Note(s) Provider Source Sep 21, 2024 01:54 PM PHYSICIAN LETTERS: LOCAL TITLE: NO SHOW LETTER STL STANDARD TITLE: PHYSICIAN LETTERS DATE OF NOTE: SEP 21, 2024@13:54 ENTRY DATE: SEP 21, 2024@13:54:19 AUTHOR: EMILIE SOUSA EXP COSIGNER: URGENCY: STATUS: COMPLETED [facility] [address] [place] [address] SEP 21, 2024 ABIEL FINK [address] [place], [place] [address] Dear Abiel Fink, Thank you for choosing the [facility] as your primary choice for health care. As a partner in your health care, we are attempting to contact you because our records indicate that you did not make it to your scheduled appointment, and we would like to re-schedule. Please call us at [phone], extension [phone] to speak to us regarding making an appointment in the [facility] 01 clinic. Your good health is important to [...] inquire about scheduling. Sincerely, EMILIE SOUSA ADVANCED SWIMMING POOL PLASTERER HELPER ABIEL FINK [facility]
--- OUTSIDE RECORDS SUMMARY | 2024-11-17 04:22 | XMS_ITS | Encounter Summary ---
Author Name Department of [place] Affairs [place] Organization [place] Address [address] [place] [address] Care Team Providers Care Sewing Machine Bobbin Winder Name Role Phone MANUEL BAIRD Primary [...] PART A Apr 08, 2017 PART A [id number] ASHLEY WALKER PATIENT Selected Encounter This section includes the information on record at [place] for the Encounter. Date/Time Encounter Type Encounter Description Reason Pro vider Source Sep 21, 2024 01:30 PM Outpatient Encounter TELEPHONE PRIMARY CARE E Encounter Template Text not used by [...] 20 appointments. The data comes from all [place] treatment [facility]. Appointment Date/Time Appointment Type Appointme nt Facility Name Sep 22, 2024 11:00 AM AMBULATORY - MEDICINE [facility] Sep 29, 2024 12:30 PM AMBULATORY - MEDICINE [facility] Oct 02, 2024 09:30 AM AMBULATORY - MEDICINE [facility] Nov 20, 2024 10:30 AM AMBULATORY - SURGERY [facility] Nov 21, 2024 10:00 AM AMBULATORY - NONE [facility] Dec 11, 2024 10:30 AM AMBULATORY [...] 03:47 PM Consult Order [facility] SKILLED HOME CARE STL Cons Bedside [facility] [...] 08:21 AM [facility] MAGNESIUM Specimen Type: PLASMA No comment entered. Ordering Provider: DIXON REDDY Report Released Date/Time: Aug 22, 2024 11:26 AM Reporting Lab: [facility]1 [facility] [address] Performing Lab: [facility] #1 [facility] [address] MAGNESIUM 1.8 mg/dL 1.6-2.6 Aug 23, 2024 08:[address] [facility] [facility] CBC Specimen Type: BLOOD No comment entered. Ordering Provider: DIXON REDDY Report Released Date/Time: Aug 22, 2024 11:19 AM Reporting Lab: [facility]1 [facility] [address] Performing Lab: [facility] #1 [facility] [address] WBC 4.0 10*3/uL 3.6-11.2 RBC 3.65 10*6/uL [...] 2024 05:12 AM [facility] GLUCOSE,BLOOD-poct (STL) Specimen Type: BLOOD Comment: Test Performed by: [id number] Meter #: [id number] Ordering Provider: DIXON REDDY Report Released Date/Time: Aug 23, 2024 05:23 AM Reporting Lab: [facility] #1 [facility] [address] Performing Lab: [facility] #1 [facility] [address] GLUCOSE,BLOOD -poct (STL) 99 mg/dL 72-99 Aug 23, 2024 02:45 AM [facility] OCCULT BLOOD FIT X1 SCREEN Specimen Type: FECES No comment entered. Ordering Provider: DIXON REDDY Report Released Date/Time: Aug 22, 2024 11:23 AM Reporting Lab: [facility] [address] [facility] [address] Performing Lab: [facility] [address] [facility] [address] OCCULT BLOOD (FIT) #1 OF 1 Negative [...] QUIT 15 YRS OR MORE [facility] Tobacco Use History This section includes a history of the smoking, or tobacco-related health factors, that were collected on or before the date of the Encounter. The data comes from the [place] facility where the Encounter took place. Date/Time Smoking Status/Tobacco Use Comment F acility March 16, 2024 09:30 AM VA-TOBACCO QUIT 15 YRS OR MORE [facility] March 22, 2023 10:00 AM VA-TOBACCO FORMER USER [facility] March 22, 2023 10:00 AM VA-TOBACCO QUIT 15 YRS OR MORE [facility] Jan 29, 2022 03:00 PM VA-TOBACCO FORMER USER [facility] Jan 29, 2022 03:00 PM VA-TOBACCO QUIT 15 YRS OR MORE [facility] Feb 07, 2019 04:17 PM VA-TOBACCO FORMER USER [facility] Feb 07, 2019 04:17 PM VA-TOBACCO QUIT 15 YRS OR MORE [facility] March 09, 2018 12:36 PM QUIT TOBACCO >7 YEARS AGO [facility] Aug 05, 2017 02:36 PM QUIT TOBACCO >7 YEARS AGO [facility] Advance Directives: All historical and current [...] 2017 ADVANCE DIRECTIVE DISCUSSION ERICK BARDALES [facility] Encounter Notes: All associated encounter notes This section contains the clinical notes associated to the Encounter. Date/Time Encounter Note(s) Provider Source Sep 21, 2024 01:32 PM ADMINISTRATIVE NOT E: LOCAL TITLE: ADMINISTRATIVE STL STANDARD TITLE: ADMINISTRATIVE NOTE DATE OF NOTE: SEP 21, 2024@13:32 ENTRY DATE: SEP 21, 2024@13:32:38 AUTHOR: REED COLLADO EXP COSIGNER: URGENCY: STATUS: COMPLETED ADMINISTRATIVE STL Has ADDENDA Called on Sep@13:32 for clinical pharmacy phone appointment, no answer, left message asking pt to call [phone] option # 2 to reschedule. /camryn COLLADO PHARM.D., [facility] CLINICAL PHARMACIST Signed: 09/21/2024 13:32 09/21/2024 ADDENDUM STATUS: COMPLETED Called on Sep@13:43 for clinical pharmacy phone appointment, no answer, left message asking pt to call [phone] option # 2 to reschedule. /camryn COLLADO PHARM.D., [facility] CLINICAL PHARMACIST Signed: 09/21/2024 13:43 REED COLLADO [facility]
--- OUTSIDE RECORDS SUMMARY | 2024-11-17 04:22 | XMS_ITS ---
Author Name [facility] [place] Organization [place] Address [address] [place] [address] Care Team Providers Care Hoop Maker Name Role Phone MANUEL BAIRD Primary [...] PART A Apr 08, 2017 PART A [id number] [phone] ASHLEY FINK PATIENT Selected Encounter This section includes the information on record at [place] for the Encounter. Date/Time Encounter Type Encounter Description Reason Pro vider Source Sep 22, 2024 12:24 PM Outpatient Encounter ADMIN PAT ACTIVTIES (MASNONCT) IHE Encounter Template Text not used by [place] Plan of Treatment: Future Appointments (+ 6 [...] appointments. The data comes from all [facility]. Appointment Date/Time Appointment Type Appointme nt Facility Name Sep 29, 2024 12:30 PM AMBULATORY - MEDICINE [facility] Oct 02, 2024 09:30 AM AMBULATORY - MEDICINE [facility] Nov 20, 2024 10:30 AM AMBULATORY - SURGERY [facility] Nov 21, 2024 10:00 AM AMBULATORY - NONE [facility] Dec 11, 2024 10:30 AM AMBULATORY [...] theEncounter. The data comes from all [facility]. Test Date/Time Test Type Test Details Facility Name Aug 17, 2024 03:47 PM Consult Order [facility] Cons Bedside [facility] Social History: Smoking Status (Most current) and Tobacco Use (All prior to encounter date) This section includes the most current, and the historical, smoking and tobacco- related health factors from the [place] facility where the Encounter took place. Current Smoking Status This section includes the most current smoking, or tobacco-related health factor, from the [place] facility where the Encounter took place. Date/Time Current Smoking Status Comment Radhika goins Aug 11, 2016 10:34 AM QUIT TOBACCO >7 YEARS AGO [facility] Tobacco Use History This section includes a history of the smoking, or tobacco-related health factors, that were collected on or before the date of the Encounter. The data comes from the [place] facility where the Encounter took place. Date/Time Smoking Status/Tobacco Use Comment Juan borden Sep 30, 2015 10:12 AM QUIT TOBACCO >7 YEARS AGO [facility] Oct 29, 2014 10:23 AM QUIT TOBACCO >7 YEARS AGO [facility] Dec 27, 2013 01:27 PM QUIT TOBACCO >7 YEARS AGO [facility] Feb 24, 2013 02:01 PM LIFETIME NON-USER OF TOBACCO [facility] Feb 11, 2009 10:09 AM QUIT TOBACCO >7 YEARS AGO [facility] Oct 06, 2006 09:30 AM CURRENT NON-TOBACC O USER-HX OF USE [facility] Oct 06, 2006 09:30 AM TOBACCO TERMINATION STAGE [facility] Advance Directives: All historical and current [...] 19, 2017 ADVANCE DIRECTIVE DISCUSSION ERICK BARDALES [facility] Encounter Notes: All associated encounter notes This section contains the clinical notes associated to the Encounter. Date/Time Encounter Note(s) Provider Source Sep 22, 2024 12:24 PM ADMINISTRATIVE NOT E: LOCAL TITLE: SCHEDULING NOTE ST STANDARD TITLE: ADMINISTRATIVE NOTE DATE OF NOTE: SEP 22, 2024@12:24 ENTRY DATE: SEP 22, 2024@12:25 AUTHOR: EMILIE SOUSA COSIGNER: URGENCY: STATUS: COMPLETED Minimum Scheduling attempts to contact the have been made. RTC/Appt/Consult request will be discontinued after 14 days. Clinic: [facility] TAMARA: Aug First Call to Koppel - unsuccessful scheduling: Sep Unable to contact Koppel, letter sent: Sep Discontinue date (14 calendar days after letter is mailed): Sep Additional comments: ATTEMT TO R/S NO SHOW APPT. PREFERS TO CALL BACK AND RESCHEDULE. NO CONTACT LETTER SENT REMINDER. ADDITIONAL RESULTS FROM SCHEDULING ATTEMPTS: Spoke with [place]/Caregiver wants to call back to schedule /es/ EMILIE SOUSA ADVANCED NECKTIE OPERATOR POCKETS AND PIECES Signed: 09/22/2024 12:30 EMILIE SOUSA [facility] Sep 22, 2024 12:24 PM PHYSICIAN LETTERS: LOCAL TITLE: NO CONTACT LETTER ST STANDARD TITLE: PHYSICIAN LETTERS DATE OF NOTE: SEP 22, 2024@12:24 ENTRY DATE: SEP 22, 2024@12:24:18 AUTHOR: EMILIE SOUSA EXP COSIGNER: URGENCY: STATUS: COMPLETED [facility] [address] [place] [address] SEP 22, 2024 ABIEL FINK [address] [place], [place] [address] Dear Abiel Fink, Thank you for choosing the [facility] as your primary choice for health care. As a partner in your health care, we are attempting to contact you because we have been unsuccessful in reaching you by phone to schedule your clinic appointment. Please call us at [phone], extension [phone] to speak to us regarding making an appointment in the [facility] clinic. Your good health is important to [...] inquire about scheduling. Sincerely, EMILIE SOUSA ADVANCED NECKTIE OPERATOR POCKETS AND PIECES ABIEL FINK CRYSTAL M [facility]
--- OUTSIDE RECORDS SUMMARY | 2024-11-17 04:23 | XMS_ITS ---
Author Name [facility] [place] Organization [place] Address [address] [place] [address] Care Team Providers Care Supervisor Particleboard Name Role Phone MANUEL THOMAS Primary Care [...] PART A Apr 08, 2017 PART A [id number] ASHLEY WALKER PATIENT Selected Encounter This section includes the information on record at [place] for the Encounter. Date/Time Encounter Type Encounter Description Reason Pro vider Source Sep 29, 2024 02:27 PM Outpatient Encounter ADMIN PAT ACTIVTIES (MASNONCT) IHE Encounter Template Text not used by [place] Plan of Treatment: Future Appointments (+ 6 [...] AM AMBULATORY - SURGERY [facility] Nov 21, 2024 10:00 AM AMBULATORY - NONE [facility] Dec 11, 2024 10:30 AM [...] CARE-GEC SKILLED HOME CARE STL Cons Bedside [facility] Social History: Smoking Status (Most [...] 10:34 AM QUIT TOBACCO >7 YEARS AGO [facility] Tobacco Use History This section includes a history of the smoking, or tobacco-related health factors, that were collected on or before the date of the Encounter. The data comes from the [place] facility where the Encounter took place. Date/Time Smoking Status/Tobacco Use Comment Juan acmichael Sep 30, 2015 10:12 AM QUIT TOBACCO >7 YEARS AGO [facility] Oct 29, 2014 10:23 AM QUIT TOBACCO >7 YEARS AGO [facility] Dec 27, 2013 01:27 PM QUIT TOBACCO >7 YEARS AGO [facility] Feb 24, 2013 02:01 PM LIFETIME NON-USER OF TOBACCO [facility] Feb 11, 2009 10:09 AM QUIT TOBACCO >7 YEARS AGO [facility] Oct 06, 2006 09:30 AM CURRENT NON-TOBACC O USER-HX OF USE [facility] Oct 06, 2006 09:30 AM TOBACCO TERMINATION STAGE [facility] Advance Directives: All historical [...] 19, 2017 ADVANCE DIRECTIVE DISCUSSION ERICK BARDALES [facility] Encounter Notes: All associated encounter notes This section contains the clinical notes associated to the Encounter. Date/Time Encounter Note(s) Provider Source Sep 29, 2024 06:03 PM ADDENDUM: LOCAL TITLE: Addendum STANDARD TITLE: ADDENDUM DATE OF NOTE: SEP 29, 2024@18:03:28 ENTRY DATE: SEP 29, 2024@18:03:30 AUTHOR: CHARITY HALL EXP COSIGNER: URGENCY: STATUS: COMPLETED Patient has scheduled PCP appointment Wednesday - 10/02/2024 09:[address] [facility] PACT STAR RES 2 PCP can assess patient needs at that time per 09/08 24 CC ER self presenting note He is hospitalized with weakness and near-syncope s/p recent lap meena. Patient had been advised to DC to acute rehab but refused and went home. Being treated for infectious gastroenteritis. Continues to have multiple episodes of diarrhea. Plan is to continue IV ABX, cardiac monitoring, fall precautions, and DC to rehab facility. Patient decided to go home again because he did not want to wait on rehab bed. Now Patient is not progressing and son calling that he wants patient to go to for PT as he is not progressing. Patient can not go to [facility] rehab directly from outpatient status /shen/ CHARITY HALL REGISTERED NURSE Signed: 09/29/2024 18:15 Receipt Acknowledged By: 10/02/2024 13:24 /shen/ manuel thomas M.D. Staff Physician --- Original Document --- 09/29/24 CONTACT NOTE STL: Veterans name and last 4 were used to verify identity Verified Veterans telephone #/Updated telephone number in the system REASON FOR CALL: Speak with a provider: (please add RNCM/Provider as an additional signer to the note) Provider: BRIE Question: Would like to be moved to the physical therapy there's been no improvement in his care. Call Back number: [phone] (EDELMIRA Aguillon) /shen/ DICKSON CASPER [employer] MEDICAL SUPPORT SYSTEM Signed: 09/29/2024 14:29 Receipt Acknowledged By: 09/29/2024 18:15 /shen/ CHARITY HALL REGISTERED NURSE CHARITY HALL [facility] Sep 29, 2024 02:27 PM ADMINISTRATIVE NOT E: LOCAL TITLE: CONTACT NOTE STL STANDARD TITLE: ADMINISTRATIVE NOTE DATE OF NOTE: SEP 29, 2024@14:27 ENTRY DATE: SEP 29, 2024@14:27:33 AUTHOR: DICKSON CASPER EXP COSIGNER: URGENCY: STATUS: COMPLETED CONTACT NOTE STL Has ADDENDA Veterans name and last 4 were used to verify identity Verified Veterans telephone #/Updated telephone number in the system REASON FOR CALL: Speak with a provider: (please add RNCM/Provider as an additional signer to the note) Provider: BRIE Question: Would like to be moved to the physical therapy there's been no improvement in his care. Call Back number: [phone] (EDELMIRA Aguillon) /shen/ DICKSON CASPER [employer]PPORT [employer] Signed: 09/29/2024 14:29 Receipt Acknowledged By: 09/29/2024 18:15 /shen/ CHARITY HALL REGISTERED NURSE 09/29/2024 ADDENDUM STATUS: COMPLETED Patient has scheduled PCP appointment Wednesday - 10/02/2024 09:30 [facility] PACT STAR RES 2 PCP can assess patient needs at that time per 09/08 24 CC ER self presenting note He is hospitalized with weakness and near-syncope s/p recent lap meena. Patient had been advised to DC to acute rehab but refused and went home. Being treated for infectious gastroenteritis. Continues to have multiple episodes of diarrhea. Plan is to continue IV ABX, cardiac monitoring, fall precautions, and DC to rehab facility. Patient decided to go home again because he did not want to wait on rehab bed. Now Patient is not progressing and son calling that he wants patient to go to for PT as he is not progressing. Patient can not go to rehab directly from outpatient status /shen/ CHARITY HALL REGISTERED NURSE Signed: 09/29/2024 18:15 Receipt Acknowledged By: 10/02/2024 13:24 /camryn thomas M.D. Staff Physician 10/02/2024 ADDENDUM STATUS: COMPLETED Patient did not show up for his scheduled appt for 10/02. /camryn thomas M.D. Staff Physician Signed: 10/02/2024 13:24 DICKSON CASPER [facility]
--- OUTSIDE RECORDS SUMMARY | 2024-11-17 04:23 | XMS_ITS | Encounter Summary ---
Author Name Department of [place]a [place] Organization [place] Address [address] [place] [address] Care Team Providers Care Retail Analytics Manager Name Role Phone MANUEL BAIRD Primary [...] PART A Apr 08, 2017 PART A [id number] ASHLEY FINK PATIENT Selected Encounter This section includes the information on record at [place] for the Encounter. Date/Time Encounter Type Encounter Description Reason Pro vider Source Sep 29, 2024 01:29 PM Outpatient Encounter ADMIN PAT ACTIVTIES (MASNONCT) IHE Encounter Template Text not used by [place] [...] 20 appointments. The data comes from all [place] treatment facilities. Appointment Date/Time Appointment Type Appointme nt Facility Name Oct 02, 2024 09:30 AM AMBULATORY - MEDICINE [facility] Nov 20, 2024 10:30 AM AMBULATORY - SURGERY [facility] Nov 21, 2024 10:00 AM AMBULATORY - NONE [facility] Dec 11, 2024 10:30 AM AMBULATORY [...] CARE-GEC SKILLED HOME CARE STL Cons Bedside [facility] Social History: Smoking Status (Most [...] AM CURRENT NON-TOBACC O USER-HX OF USE [facility] Oct 06, 2006 09:30 AM TOBACCO TERMINATION STAGE [facility] Advance Directives: All historical and [...] 19, 2017 ADVANCE DIRECTIVE DISCUSSION ERICK BARDALES [facility] Encounter Notes: All associated encounter notes This section contains the clinical notes associated to the Encounter. Date/Time Encounter Note(s) Provider Source Sep 29, 2024 01:30 PM ADMINISTRATIVE NOT E: LOCAL TITLE: SCHEDULING NOTE STL STANDARD TITLE: ADMINISTRATIVE NOTE DATE OF NOTE: SEP 29, 2024@13:30 ENTRY DATE: SEP 29, 2024@13:30:03 AUTHOR: BÁRBARA GARCIA EXP COSIGNER: URGENCY: STATUS: COMPLETED Minimum Scheduling attempts to contact the have been made. RTC/Appt/Consult request will be discontinued after 14 days. Clinic: [facility] 1 TAMARA: Sep RTC/Appt request dispositioned due to No Show/Cancellation X 2 (per DIR 1230) Clinic: [facility] Additional comments: VET NO SHOW ADDITIONAL RESULTS FROM SCHEDULING ATTEMPTS: /shen/ BÁRBARA GARCIA ADVANCED PROCESSING REP Signed: 09/29/2024 13:34 BÁRBARA GARCIA [facility] Sep 29, 2024 01:29 PM PHYSICIAN LETTERS: LOCAL TITLE: NO SHOW LETTER STL STANDARD TITLE: PHYSICIAN LETTERS DATE OF NOTE: SEP 29, 2024@13:29 ENTRY DATE: SEP 29, 2024@13:29:20 AUTHOR: BÁRBARA GARCIA COSIGNER: URGENCY: STATUS: COMPLETED [facility] [address] [place] [address] SEP 29, 2024 ABIEL FINK [address] [place], [place] [address] Dear Abiel Fink, Thank you for choosing the [facility] as your primary choice for health care. As a partner in your health care, we are attempting to contact you because our records indicate that you did not make it to your scheduled appointment, and we would like to re-schedule. Please call us at [phone], extension [phone] to speak to us regarding making an appointment in the -CARDIOLOGY EDUCATION INTERN 1 clinic. Your good health is important to [...] the clinic to inquire about scheduling. Sincerely, BÁRBARA GARCIA ADVANCED PROCESSING REP ABIEL FINK [facility]
--- OUTSIDE RECORDS SUMMARY | 2024-11-17 04:23 | XMS_ITS ---
Author Name Department of [place] Affairs [place] Organization [place] Address [address] [place] [address] Care Team Providers Care Plate Grainer Name Role Phone MANUEL BAIRD Primary Care [...] PART A Apr 08, 2017 PART A [id number] ASHLEY FINK PATIENT Selected Encounter This section includes the information on record at [place] for the Encounter. Date/Time Encounter Type Encounter Description Reason Pro vider Source Oct 02, 2024 09:53 AM Outpatient Encounter ADMIN PAT ACTIVTIES (MASNONCT) IHE Encounter Template Text not used by [place] [...] data comes from all [place] treatment facilities. Appointment Date/Time Appointment Type Appointme nt Facility Name Nov 20, 2024 10:30 AM AMBULATORY - SURGERY [facility] Nov 21, 2024 10:00 AM AMBULATORY - NONE [facility] Dec 11, 2024 10:30 AM AMBULATORY - MEDICINE [facility] Social History: Smoking Status (Most current) and Tobacco Use (All prior to encounter date) This section includes the most current, and the historical, smoking and tobacco- related health factors from the [place] facility where the Encounter took place. Current Smoking Status This section includes the most current smoking, or tobacco-related health factor, from the [place] facility where the Encounter took place. Date/Time Current Smoking Status Comment Radhika ity Aug 11, 2016 10:34 AM QUIT TOBACCO >7 YEARS AGO [facility] Tobacco Use History This section includes a history of the smoking, or tobacco-related health factors, that were collected on or before the date of the Encounter. The data comes from the [place] facility where the Encounter took place. Date/Time Smoking Status/Tobacco Use Comment F acility Sep 30, 2015 10:12 AM QUIT TOBACCO >7 YEARS AGO [facility] Oct 29, 2014 10:23 AM QUIT TOBACCO >7 YEARS AGO [facility] Dec 27, 2013 01:27 PM QUIT TOBACCO >7 YEARS AGO [facility] Feb 24, 2013 02:01 PM LIFETIME NON-USER OF TOBACCO [facility] Feb 11, 2009 10:09 AM QUIT TOBACCO >7 YEARS AGO [facility] Oct 06, 2006 09:30 AM CURRENT NON-TOBACC O USER-HX OF USE [facility] Oct 06, 2006 09:30 AM TOBACCO TERMINATION STAGE [facility] Advance Directives: All historical and [...] Source Jan 19, 2017 ADVANCE DIRECTIVE DISCUSSION [facility] Encounter Notes: All associated encounter notes This section contains the clinical notes associated to the Encounter. Date/Time Encounter Note(s) Provider Source Oct 02, 2024 09:53 AM PHYSICIAN LETTERS: LOCAL TITLE: NO SHOW LETTER STL STANDARD TITLE: PHYSICIAN LETTERS DATE OF NOTE: OCT 02, 2024@09:53 ENTRY DATE: OCT 02, 2024@09:53:59 AUTHOR: EMILIE SOUSA COSIGNER: URGENCY: STATUS: COMPLETED [facility] [address] [place] [address] OCT 02, 2024 CHET FINK [address] [place], [place] [address] Dear Chet Fink, Thank you for choosing the [facility] as your primary choice for health care. As a partner in your health care, we are attempting to contact you because our records indicate that you did not make it to your scheduled appointment, and we would like to re-schedule. Please call us at [phone], extension [phone] to speak to us regarding making an appointment in the [facility] clinic. Your good health is important [...] inquire about scheduling. Sincerely, EMILIE SOUSA ADVANCED METAL PICKLING EQUIPMENT OPERATOR CHET FINK CRYSTAL M [facility]
--- OUTSIDE RECORDS SUMMARY | 2024-11-17 04:23 | XMS_ITS | Encounter Summary ---
Author Name Department of [place] Organization [place] Address [address] [place] [address] Care Team Providers Care Clay Pigeon Setter Name Role Phone MANUEL BAIRD Primary Care [...] PART A Apr 08, 2017 PART A [id number] ASHLEY FINK PATIENT Selected Encounter This section includes the information on record at [place] for the Encounter. Date/Time Encounter Type Encounter Description Reason Pro vider Source Oct 02, 2024 11:36 AM Outpatient Encounter ADMIN PAT ACTIVTIES (MASNONCT) [...] AM AMBULATORY - SURGERY [facility] Nov 21, 2024 10:00 AM AMBULATORY - NONE [facility] Dec 11, 2024 10:30 AM AMBULATORY - MEDICINE [facility] Social History: Smoking Status (Most current) [...] Source Jan 19, 2017 ADVANCE DIRECTIVE DISCUSSION CATIAJESIKAERICK A [facility] Encounter Notes: All associated encounter notes This section contains the clinical notes associated to the Encounter. Date/Time Encounter Note(s) Provider Source Oct 02, 2024 11:38 AM ADMINISTRATIVE NOT E: LOCAL TITLE: SCHEDULING NOTE STL STANDARD TITLE: ADMINISTRATIVE NOTE DATE OF NOTE: OCT 02, 2024@11:38 ENTRY DATE: OCT 02, 2024@11:38:53 AUTHOR: FABIOLA LOUISE EXP COSIGNER: URGENCY: STATUS: COMPLETED Minimum Scheduling attempts to contact the have been made. RTC/Appt/Consult request will be discontinued after 14 days. Clinic: [facility] TAMARA: Sep First Call to - unsuccessful scheduling: Sep Unable to contact [place], letter sent: Sep Discontinue date (14 calendar days after letter is mailed): Oct ADDITIONAL RESULTS FROM SCHEDULING ATTEMPTS: /shen/ FABIOLA LOUISE medical record technician Signed: 10/02/2024 11:40 FABIOLA LOUISE [facility] Oct 02, 2024 11:37 AM PHYSICIAN LETTERS: LOCAL TITLE: NO CONTACT LETTER STL STANDARD TITLE: PHYSICIAN LETTERS DATE OF NOTE: OCT 02, 2024@11:37 ENTRY DATE: OCT 02, 2024@11:37:16 AUTHOR: FABIOLA LOUISE EXP COSIGNER: URGENCY: STATUS: COMPLETED [facility] [address] [place] [address] OCT 02, 2024 ABIEL FINK [address] [place], [place] [address] Dear Abiel Fink, Thank you for choosing the [facility] as your primary choice for health care. As a partner in your health care, we are attempting to contact you because we have been unsuccessful in reaching you by phone to schedule your clinic appointment. Please call us at [phone], extension [phone] to speak to us regarding making an appointment in the -CARDIOLOGY TRAILERS AND MOTOR HOMES SALESPERSON 1 clinic. Your good health is important [...] the clinic to inquire about scheduling. Sincerely, FABIOLA LOUISE medical record technician ABIEL FINK LISA Z [facility]
--- OUTSIDE RECORDS SUMMARY | 2024-11-17 04:23 | XMS_ITS | Encounter Summary ---
Author Name Department of [place] Organization [place] Address [address] [place] [address] Care Team Providers Care Meat Manager Name Role Phone MANUEL BAIRD Primary [...] PART A Apr 08, 2017 PART A [id number] ASHLEY FINK PATIENT Selected Encounter This section includes the information on record at [place] for the Encounter. Date/Time Encounter Type Encounter Description Reason Pro vider Source Oct 03, 2024 09:45 AM Outpatient Encounter ADMIN PAT ACTIVTIES (MASNONCT) [...] 20 appointments. The data comes from all [place] treatment facilities. Appointment Date/Time Appointment Type Appointme nt Facility Name Nov 20, 2024 10:30 AM AMBULATORY - SURGERY [facility] Nov 21, 2024 10:00 AM AMBULATORY - NONE [facility] Dec 11, 2024 10:30 AM AMBULATORY - MEDICINE [facility] Social History: Smoking Status (Most current) [...] DIRECTIVE DISCUSSION ERICK BARDALES [facility] Encounter Notes: All associated encounter notes This section contains the clinical notes associated to the Encounter. Date/Time Encounter Note(s) Provider Source Oct 03, 2024 09:46 AM ADMINISTRATIVE NOT E: LOCAL TITLE: SCHEDULING NOTE STL STANDARD TITLE: ADMINISTRATIVE NOTE DATE OF NOTE: OCT 03, 2024@09:46 ENTRY DATE: OCT 03, 2024@09:46:30 AUTHOR: EMILIE SOUSAIGNER: URGENCY: STATUS: COMPLETED Minimum Scheduling attempts to contact the Kirk have been made. RTC/Appt/Consult request will be discontinued after 14 days. Clinic: [facility] PACT STAR RES 4 TAMARA: Sep First Call to - unsuccessful scheduling: Sep Unable to contact Kirk, letter sent: Sep Discontinue date (14 calendar days after letter is mailed): Oct Additional comments: ATTEMPT TO R/S NO SHOW APPT. LEFT VOICEMAIL. ADDITIONAL RESULTS FROM SCHEDULING ATTEMPTS: /es/ EMILIE SOUSA ADVANCED STATION INSTALLATION SUPERVISOR Signed: 10/03/2024 09:47 EMILIE SOUSA [facility] Oct 03, 2024 09:45 AM PHYSICIAN LETTERS: LOCAL TITLE: NO CONTACT LETTER STL STANDARD TITLE: PHYSICIAN LETTERS DATE OF NOTE: OCT 03, 2024@09:45 ENTRY DATE: OCT 03, 2024@09:46:01 AUTHOR: EMILIE SOUSAIGNER: URGENCY: STATUS: COMPLETED [facility] [address] [place] [address] OCT 03, 2024 [address]EL FINK [address] [place] [address] Dear Abiel Fink, Thank you for choosing the [facility] as your primary choice for health care. As a partner in your health care, we are attempting to contact you because we have been unsuccessful in reaching you by phone to schedule your clinic appointment. Please call us at [phone], extension [phone] to speak to us regarding making an appointment in the [facility] clinic. Your good health is important to [...] inquire about scheduling. Sincerely, EMILIE SOUSA ADVANCED STATION INSTALLATION SUPERVISOR ABIEL FINK CRYSTAL M [facility]
--- OUTSIDE RECORDS SUMMARY | 2024-11-17 04:24 | XMS_ITS | Encounter Summary ---
Author Organization [facility] Address [address] [place] [address]. [place], [place] [id number] [place] [id number] Care Team Providers Care Work Order Clerk Name Role Phone Unavailable Primary Care Provider Unavailabl e Encounter Details Date Type Department Care Team (Late st Contact Info) Description 05/20/2016 Abstract [facility] Family & Internal Medicine [address] [id number] Marcus Leon, [employer] RECREATION DIRECTOR Social History Tobacco Use Types Packs/Day Years Used Date Smoking Tobacco: Never Assessed Sex and Gender Information Value Date Recorded Sex Assigned at Not on file Legal Sex Male 5:43 PM CDT Gender Identity Not on file Sexual Orientation Not on file documented as of this encounter Plan of Treatment Not on file documented as of this encounter Visit Diagnoses Not on filedocumented in this encounter
--- OUTSIDE RECORDS SUMMARY | 2024-11-17 04:24 | XMS_ITS | Clinical Summary ---
Author Organization [facility] Address [address] [place] [address] Care Team Providers Care Piece Dyeing Machine Tender Name Role Phone Unavailable Primary Care Provider Unavailabl e Source Comments [facility],non-owned Affiliates and Associated Physician Practices is amultiple site organization consisting of ambulatory clinics and hospital sitesin [place], [place], [place] and [place]. This disclosure is being madepursuant to the Care Everywhere program and may not contain all information available regarding this patient. Last updated 18.[facility] [employer] Allergies Active Allergy Reactions Criticality Noted Date Comments Tramadol Itching 08/27/2020 Medications * Be aware that medications may not be up to date on this document. Alwaysverify current medications with the patient. Medication Sig Dispensed Refills Start Date End Date Status albuterol HFA (PROVENTIL;VENTOLIN;PA OAIR) 108 (90 Base) MCG/ACT inhaler Inhale 2 puffs by mouth every 6 hours as needed Active METFORMIN HCL PO Active Insulin Glargine (LANTUS SC) Active Insulin Aspart (NOVOLOG SC) Active LISINOPRIL PO Active DULoxetine HCl (CYMBALTA PO) Active Omeprazole (PRILOSEC PO) Active Pregabalin (LYRICA PO) Ac tive Furosemide (LASIX PO) Act sg ATORVASTATIN CALCIUM PO Active Social History Tobacco Use Types Packs/Day Years Used Date Smoking Tobacco: Former Comments:quit smoking 40 plu s years ago Sex and Gender Information Value Date Recorded Sex Assigned at Not on file Gender Identity Not on file Sexual Orientation Not on file Last Filed Vital Signs Vital Sign Reading Time Taken Comments Blood Pressure 130/70 08/27/2020 12:39 PM CDT Pulse 68 08/27/2020 12:39 PM CDT Temperature 36.7 ??C (98.1 ??F) 08/27/2020 12:39 PM C DT Respiratory Rate 18 08/27/2020 12:39 PM CDT Oxygen Saturation 95% 08/27/2020 12:39 PM CDT Inhaled Oxygen Concentration - - Weight 107 kg (236 lb) 08/27/2020 12:39 PM CDT Height 177.8 cm (5' 10 ) 08/27/2020 12:39 PM CDT Body Mass Index 33.86 08/27/2020 12:39 PM CDT Plan of Treatment Health Maintenance Due Date Last Done Comments COLOGUARD (AGES 45-75) - COL ON CA SCREENING 1952 COLON MONITORING 1952 COLONOSCOPY - COLON CA SCREENING 1952 CT COLONOGRAPHY - COLON CA SCREENING 1952 Colorectal Cancer Screening 1952 FIT - COLON CA SCREENING 1952 FLEX SIG - COLON CA SCREENING 1952 HEPATITIS C SCREENING 04/23/1970 DTAP/TDAP/TD VACCINES (1 - Tdap) 1971 ZOSTER VACCINE (1 of 2) 2002 AAA SCREENING 2017 PNEUMOCOCCAL VACCINE 50+ (1 of 1 - PCV) 2017 SCREENING FOR DIABETES 08/27/2020 COVID-19 VACCINE (1 - 2023-2 5 season) 2024 INFLUENZA VACCINE (#1) 2024 DEPRESSION SCREENING 11/08/2024 Respiratory Syncytial Virus (RSV) Vaccine Pt: or over 60 yrs (1 - 1-dose 75+ series) 2027 HEPATITIS B VACCINE Aged Out No longe r eligible based on patient's age to complete this topic HIB VACCINE Aged Out No longer eligi ble based on patient's age to complete this topic HPV VACCINE Aged Out No longer eligi ble based on patient's age to complete this topic MENINGOCOCCAL VACCINE Aged Out No jose f pushpa eligible based on patient's age to complete this topic
--- OUTSIDE RECORDS SUMMARY | 2024-11-17 04:24 | XMS_ITS | Encounter Summary ---
Author Organization [facility] Address [address] [place] [address] Care Team Providers Care Face Hardener Name Role Phone Unavailable Primary Care Provider Unavailabl e Encounter Details Date Type Department Care Team (Latest Contact Info) Description 08/27/2020 Travel Social History Tobacco Use Types Packs/Day Years Used Date Smoking Tobacco: Former Comments:quit smoking 40 plu s years ago Sex and Gender Information Value Date Recorded Sex Assigned at Not on file Gender Identity Not on file Sexual Orientation Not on file COVID-19 Exposure Response Date Recorded In the last month, have you been in contact with someone who was confirmed or suspected to have Coronavirus / COVID-19? No / Unsure 08/27/2020 12:23 PM CDT documented as of this encounter Plan of Treatment Not on file documented as of this encounter Visit Diagnoses Not on filedocumented in this encounter
--- OUTSIDE RECORDS SUMMARY | 2024-11-17 04:24 | XMS_ITS | CONTINUITY OF CARE DOCUMENT ---
Author Name asia betancourt Address Unknown Organization [facility] Address [address] [place] [address] Phone [phone] Care Team Providers Care Clinical Psychology Teacher Name Role Phone Steven Sanford MD Unavailable [phone] Steven Sanford MD Unavailable [phone] INSURANCE PROVIDERS Payer name Policy type / Coverage type [place] red green party ID [place] MED[place] Medicare [id number] [facility] Commercial insurance [facility] 100 [id number]
--- OUTSIDE RECORDS SUMMARY | 2024-11-17 04:24 | XMS_ITS | Clinical Summary ---
Author Organization [facility] Address [address] [place] [address] Care Team Providers Care Compliance Engineer Name Role Phone Juan Retana MD Primary Care Provider [phone] [facility], Alverto Gutierrez Unavailable Johnathan Mckee MD Unavailable Praveen Garduno MD Unavailable [phone] Allergies Active Allergy Reactions Criticality Noted Date Comments Tramadol Itching Low 06/11/2020 Medications omeprazole (PriLOSEC) 20 mg capsule Take 1 capsule (20 mg total) by mouth every morning Active DULoxetine DR (CYMBALTA) 60 mg capsule Take 1 capsule (60 mg total) by mouth every morning Active albuterol HFA (PROVENTIL HFA,VENTOLIN HFA,PROAIR HFA) 90 mcg/actuation inhaler Inhale 2 puffs every 6 (six) hours as needed for wheezing Active carboxymethylcel l-glycerin,PF, 0.5-0.9 % dropsIndications :Dry Eye Administer 1 drop into affected eye(s) as needed (Dry eyes) 4 Active ammonium lactate (AMLACTIN) 12 % creamIndications :Dry Skin Apply 1 Application topically as needed for dry skin 4 Active aspirin 81 mg enteric coated tablet Take 1 tablet (81 mg total) by mouth daily Active MULTIVITAMIN ORAL Take 1 tablet by mouth every morning Active atorvastatin (LIPITOR) 80 mg tablet Take 1 tablet (80 mg total) by mouth daily 08/12/20 25 Active pregabalin (LYRICA) 100 mg capsule Take 1 capsule (100 mg total) by mouth 2 (two) times a day 4 02/08/20 25 Active clopidogreL (PLAVIX) 75 mg tablet Take 1 tablet (75 mg total) by mouth daily 08/12/20 25 Active isosorbide mononitrate ER (IMDUR) 30 mg 24 hr tablet Take 0.5 tablets (15 mg total) by mouth daily 08/12/20 25 Active magnesium oxide (MAG-OX) 400 mg (241.3 mg elemental magnesium) tablet Take 2 tablets (800 mg total) by mouth 2 (two) times a day 08/11/20 25 Active bumetanide (BUMEX) 1 mg tablet Take 0.5 tablets (0.5 mg total) by mouth 4 Active carvediloL (COREG) 3.125 mg tablet Take 1 tablet (3.125 mg total) by mouth 2 (two) times a day with meals 4 08/17/20 25 Active HYDROcodone-acet aminophen (NORCO) 5-325 mg per tabletIndication s:Pain Take 1 tablet by mouth every 6 (six) hours as needed for pain 15 tablet 4 Active Active Problems Problem Noted Date Diagnosed Date Biventricular cardiac pacemaker in situ 09/02/20 24 Acute cholecystitis 09/01/2024 DM2 (diabetes mellitus, type 2) 08/06/2024 Assessment & Plan (08/10/2024 3:09 PM CDT): - Home regimen: Lantus 90 units - 9/6 A1C 7.5 - Lantus 35 units + SSI with low glucoses, will hold lantus and use SSI only for now Restart Lyrica for neuropathy (200 BID at home) Coronary artery disease with history of myocardial infarction without history of CABG 07/24/2024 Coronary artery disease due to calcified coronar y lesion 07/24/2024 Assessment & Plan (08/10/2024 3:06 PM CDT): S/p CABG x3 with sternal plating 07/24/24 PT/OT- recs for rehab - Aspirin, statin, plavix daily - Imdur daily - continue coreg dose - didn't tolerate entresto Aggressive Pulmonary toilet Wires and tubes out Seroquel started in ICU, weaning dose today again(25 mg 10) Assessment & Plan (08/05/2024 2:24 PM CDT): S/p CABG x3 with sternal plating PT/OT Aggressive Pulmonary toilet Dc temporary wires today Cts out Dc hernandez for void trial today CAD, multiple vessel 07/05/2024 Bradycardia 07/05/2024 Assessment & Plan (08/07/2024 11:20 AM CDT): S/P PPM placed on 08/04 Wires out Continue telemetry montioring Assessment & Plan (08/05/2024 4:04 PM CDT): S/P PPM placed on 08/04 DC temporary pacing wires today Continue telemetry montioring Complete heart block (CMS/HCC) 07/05/2024 Assessment & Plan (08/06/2024 10:35 AM CDT): EP consulted S/P PPM placed on 08/04 Wires out Continue telemetry montioring Assessment & Plan (08/05/2024 4:04 PM CDT): EP consulted S/P PPM placed on 08/04 DC temporary pacing wires today Continue telemetry montioring Junctional escape rhythm 07/05/2024 Senile ectropion of both lower eyelids 0 Assessment & Plan (08/07/2020 1:45 PM CDT): Doing well following surgery. [facility]. Assessment & Plan (07/05/2020 9:22 PM CDT): Doing well. RTC 4 weeks. Discussed possible need for upper bleph given symptomatic visual obstruction. Lesion of eyelid of both eyes 06/11/2020 Encounters Date Type Department Care Team Description 11/15/[address] [facility] Cardiology [address]th [place] [address] [place] [phone] Lucy Meyer MD 10/26/2024 Telephone [facility] [address] [place] [phone] Praveena Garza EP-C Cardiac Rehab Navigator Follow Up Call 10/04/[address] [facility] Gastroenterology [address] [facility] [address] [place] [phone] Holli Palma LPN GI Preprocedure 09/05/2024 2:45 PM CDT - 09/05/2024 3:30 PM CDT Surgery [facility] [address] [place] [phone] Milton Mclean MD ENDO ENDOSCOPIC RETROGRADE CHOLANGIOPANCREATOGRAPHY WITH STENT PLACEMENT [[id number]] 09/05/2024 2:27 PM CDT Anesthesia Event [facility] [address] [place] [phone] Mehul Rodriguez MD Winfrey, Tonya M., CRNA 09/04/2024 1:14 PM CDT Anesthesia Event [facility] Operating Room [address] [place] [phone] Gorge Jones MD Malik, Asad S., MD 09/04/2024 1:03 PM CDT - 09/04/2024 2:48 PM CDT Surgery [facility] Operating Room [address] [place] [phone] Praveen Garduno MD LAPAROSCOPIC CHOLECYSTECTOMY 09/01/2024 6:29 PM CDT - 09/07/2024 3:05 PM CDT Hospital Encounter [address] [phone] PhatakJose MD Gallion, Sabina Saakova, MD Sripada, Sarada, MD Li, Alex, MD Acute cholecystitis (Primary Dx); Coronary artery disease due to calcified coronary lesion; Coronary artery disease with history of myocardial infarction without history of CABG; Biventricular cardiac pacemaker in situ; Acute gangrenous appendicitis with perforation and peritonitis; S/P CABG x 3; Chronic systolic heart failure (CMS/HCC) (HCC) Discharge Disposition: Discharge to home or self care 08/31/2024 Orders Only [facility] [address] [place] [phone] Jose Enriquez MD 08/18/[address] [facility] Cardiology [address] [place] [address] [facility] 8th [place] [address] [place] [address] Lucy Meyer MD 08/18/[address] [place] [address] [place] [address] Lucy Meyer MD from Last 3 Months Surgical History Surgery Date Site/Laterality Comments KIDNEY SURGERY 11/08/1960 - 11/07/1961 TOTAL KNEE ARTHROPLASTY 11/08/2016 - 11/07/2017 Left TOTAL KNEE ARTHROPLASTY 11/08/2018 - 11/07/2019 Right MULTIPLE TOOTH EXTRACTIONS Medical History Medical History Date Comments Hypertension Diabetes mellitus (HCC) Asthma Sleep apnea pt uses CPAP mac vanessa nightly GERD (gastroesophageal reflux disease) HH (hiatus hernia) Family History Medical History Relation Name Comments Cardiomyopathy Mother Anesthesia problems Neg Hx Malig Hypertension Neg Hx Malig Hyperthermia Neg Hx Pseudochol deficiency Neg Hx Relation Name Status Comments Mother Social History Tobacco Use Types Packs/Day Years Used Date Smoking Tobacco: Former Cigarettes 1.5 19.6 1 961 - 06/11/1980 Passive Smoke Exposure: Past Smokeless Tobacco: Never Tobacco Cessation:Counseling Given: Not Answered Alcohol Use Standard Drinks/Week Comments Yes 0 (1 standard drink = 0.6 oz pur e alcohol) rare - maybe 1 beer/month [facility] Utilities Answer Date Recorded In the past 12 months has [employer] electric, gas, oil, or water company threatened to shut off services in your home? No 09/05/2024 Social Connection and Isolat ion Panel [NHANES] Answer Date Recorded In a typical week, how many times do you talk on the phone with family, friends, or neighbors? More than three times a week 09/05/2024 How often do you get togethe r with friends or relatives? Once a week 09/05/2024 How often do you attend chur ch or uatsdin services? Never 09/05/2024 Do you belong to any clubs o r organizations such as religion groups, unions, fraternal or athletic groups, or school groups? No 09/05/2024 How often do you attend meet ings of the clubs or organizations you belong to? Never 09/05/2024 Are you , , di vorced, , never , or living with a partner? 09/05/2024 AUDIT-C Answer Date Recorded Q1: How often do you have a drink containing alc ohol? Monthly or less 07/24/2024 Q2: How many drinks containi ng alcohol do you have on a typical day when you are drinking? 1 or 2 07/24/2024 Q3: How often do you have si x or more drinks on one occasion? Never 07/24/2024 Overall Financial Resource Strain (CARDIA) Answe r Date Recorded How hard is it for you to pa y for the very basics like food, housing, medical care, and heating? Not very hard 09/05/2024 Hunger Vital Sign Answer Date Recorded Within the past 12 months, y ou worried that your food would run out before you got the money to buy more. Never true 09/05/20 24 Within the past 12 months, t he food you bought just didn't last and you didn't have money to get more. Never true 09/05/2024 PRAPARE - Transportation Answer Date Re corded In the past 12 months, has l ack of transportation kept you from medical appointments or from getting medications? No 08/09 In the past 12 months, has l ack of transportation kept you from meetings, work, or from getting things needed for daily living? No 09/05/2024 Housing Stability Vital Sign Answer Saleem e Recorded In the last 12 months, was t here a time when you were not able to pay the mortgage or rent on time? No 09/05/2024 In the past 12 months, how m any times have you moved where you were living? 0 09/05/2024 At any time in the past 12 m [facility], were you homeless or living in a usp (including now)? No 09/05/2024 Personal Safety Answer Date Recorded Have you ever been in or are you currently in a harmful physical or emotional relationship or is someone making you feel afraid or unsafe? 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 Gender Identity Not on file Sexual Orientation Not on file Obstetrics History Last Filed Vital Signs Vital Sign Reading Time Taken Comments Blood Pressure 107/58 09/07/2024 11:57 AM CDT Pulse 62 09/07/2024 8:19 AM CDT Temperature 36 ??C (96.8 ??F) 09/07/2024 8:19 AM CDT Respiratory Rate 18 09/07/2024 11:5 7 AM CDT Oxygen Saturation 95% 09/07/2024 11: 57 AM CDT Inhaled Oxygen Concentration - - Weight 104.8 kg (231 lb 0.7 oz) 024 12:17 PM CDT Height 177.8 cm (5' 10 ) 09/04/2024 12: 17 PM CDT Body Mass Index 33.15 09/04/2024 12:17 PM CDT Plan of Treatment Health Maintenance Due Date Last Done Comments Albumin Creatinine Ratio, Urine 1952 Colon Cancer Screening-Colonoscopy 1952 Depression Screening 1952 Hepatitis C Screening 1952 Dilated Eye Exam 1952 Foot Exam 1952 Hepatitis B Screening 1970 Abdominal Aortic Aneurysm (A AA) Screen 2017 Well Visit 65+ 2017 Influenza Vaccine (#1) 2024 11/27/2011, 2005 Hemoglobin A1C 01/11/2025 07/14/2024 Lipid Panel 07/24/2025 07/24/2024 Fall Risk Assessment 09/07/2025 09/07/2024 eGFR 09/07/2025 09/07/2024, 08/10, 09/05/2024, Additional history exists DTaP/Tdap/Td Vaccine (3 - Td or Tdap) 01/01/2030 01/01/2020, 09/08/2009 Pneumococcal vaccine 65+ Completed 019, 08/05/2017, 10/06/2006 Zoster Vaccine Completed 08/31/2022, 01/07, 08/18/2016 Medical Devices Implanted Type Area [employer] Log[employer] Manager Device Identifier Shelf Expiration Date Model / Serial / Lot Medtronic Inc Cardiac Cold Spring Hf 2 Chamber Df4 Inline Cnctr Is4 Syas4il - [id number] - [id number] Implanted:Qty: 1 on 08/04/2024 by Lucy Meyer MD at [facility] ICD Medtronic Inc 12/22/2025 [id number] / [id number] / Medtronic Inc Sprint Quattro Secure 62cm Tripolar Screw In Extendable [id number] - [id number] - [id number] Implanted:Qty: 1 on 08/04/2024 by Lucy Meyer MD at [facility] Lead Medtronic Inc 04/24/2026 [id number] / [id number] / Medtronic Inc Attain Stability Quad Mri Surescan Active Fixation Lv Lead 88cm [id number] - [id number] - [id number] Implanted:Qty: 1 on 08/04/2024 by Lucy Meyer MD at [facility] Lead Medtronic Inc 04/11/2026 [id number] / [id number] / Medtronic Inc Capsurefix Novus 6.2fr 2mm 52cm Bipolar Screw In Implantable Latex Free 5076-52 - [id number] - [id number] Implanted:Qty: 1 on 08/04/2024 by Lucy Meyer MD at [facility] Lead Medtronic Inc 05/22/2026 [id number] / [id number] / Medtronic Inc Tyrx Absorbable Antibacterial Envelope-Large 3.3x2.9in [id number] - [id number] Implanted:Qty: 1 on 08/04/2024 by Lucy Meyer MD at [facility] Other - see comments Medtronic Inc 05/25/2025 [id number] / / [id number] Description:Tyrx envelope Isanti [employer] Vinnie 10fr 7cm Biliary Stent [id number] - [id number] Implanted:Qty: 1 on 09/05/2024 by Milton Mclean MD at [facility] Stent N/A: Bile Duct [employer] Vinnie 07/24/2026 [id number] / / [id number] Luna [employer] Inc Suárez Flexi-Stent 5fr 3cm Small Pigtail Flexible .035in Stent 6551 - [id number] Implanted:Qty: 1 on 09/05/2024 by Milton Mclean MD at [facility] Stent N/A: Pancreas Bionaturis Medical Inc 05/08/2029 [id number] / / [id number] Arthrex Inc Device Closure Fibertape Sternal Cerclage Blunt Needle Ar-7289 - [id number] Implanted:Qty: 2 on 07/24/2024 by Johnathan Mckee MD at [facility] Sternum Ar[employer]rex Inc [id number] 05/07/2029 AR-7 289 / / [id number] Arthrex Inc Device Closure Fibertape Sternal Cerclage Cutting Needle Ar-7288 - [id number] Implanted:Qty: 1 on 07/24/2024 by Tala Amador MD at [facility] Sternum [employer] Inc [id number] 05/07/2029 AR-7288 / / [id number] Reyna [employer] Inc Plate Bone Low Profile 6 Hole H Shape Sternum Ti 115.102.06 - [id number] Implanted:Qty: 2 on 07/24/2024 by Tala Amador MD at [facility] Sternum [employer] Inc 115.102. 06 / / Reyna [employer] Plate Bone Low Profile 6 Hole O Shape Sternum Ti 115.104.06 - [id number] Implanted:Qty: 1 on 07/24/2024 by Tala Amador MD at [facility] Sternum [employer] Inc 115.104. 06 / / Reyna [employer] Inc Screw Bone Slf Drl Full Thread Locking 3.5x14mm Ti 100.035.14 - [id number] Implanted:Qty: 12 on 07/24/2024 by Tala Amador MD at [facility] Sternum [employer] Inc 100.035. 14 / / [employer]a [employer] Inc Screw Bone Slf Drl Full Thread Locking 3.5x16mm Ti 100.035.16 - [id number] Implanted:Qty: 6 on 07/24/2024 by Tala Amador MD at [facility] Sternum [employer] Inc 100.035. 16 / / [employer] ([email or web address]) Patton Distal Marker Radiology Stainless Steel Sterile Am-D - [id number] Implanted:Qty: 2 on 07/24/2024 by Tala Amador MD at [facility] Henable [id number] 06/08/2027 AMGM-D / / [id number] Explanted Type Area Forest Logistics Manager Device Identifier Shelf Expiration Date Model / Serial / Lot Arthrex Inc Device Closure Fibertape Sternal Cerclage Cutting Needle Ar-7288 - [id number] Explanted:Qty: 1 on 07/24/2024 by Tala Amador MD at [facility] Stern [employer] Inc [id number] 05/07/2029 AR-7288 / / [id number] Arthrex Inc Device Closure Fibertape Sternal Cerclage Blunt Needle Ar-7289 - [id number] Explanted:Qty: 1 on 07/24/2024 by Tala Amador MD at [facility] Stern Ar[employer]rex Inc [id number] 05/07/2029 AR-7289 / / [id number] Procedures Procedure Name Priority Date/Time Associated Diagnosis Comments EGFR Routine 09/07/2024 6:20 AM CDT DIFFERENTIAL AUTO Routine 09/07/2024 6:2 0 AM CDT PHOSPHORUS Routine 09/07/2024 6:20 AM CDT BILIRUBIN, DIRECT Routine 09/07/2024 6:2 0 AM CDT COMPREHENSIVE METABOLIC PANEL Routine 09/07/2024 6:20 AM CDT CBC WITH AUTO DIFFERENTIAL Routine 09/07/2024 6:20 AM CDT EGFR Routine 09/06/2024 12:32 PM CDT PHOSPHORUS Routine 09/06/2024 12:32 PM CDT BILIRUBIN, DIRECT Routine 09/06/2024 12: 32 PM CDT COMPREHENSIVE METABOLIC PANEL Routine 09/06/2024 12:32 PM CDT DIFFERENTIAL AUTO Routine 09/06/2024 12: 32 PM CDT CBC WITH AUTO DIFFERENTIAL Routine 09/06/2024 12:32 PM CDT POCT GLUCOSE DEVICE Routine 09/06/2024 6 :33 AM CDT ERCP IP Routine 09/05/2024 3:00 PM CDT Acute cholecystitis ERCP IP Routine 09/05/2024 3:00 PM CDT Acute cholecystitis ERCP IP Routine 09/05/2024 2:57 PM CDT ERCP 09/05/2024 2:20 PM CDT POCT GLUCOSE DEVICE Routine 09/05/2024 1 :02 PM CDT POCT GLUCOSE DEVICE Routine 09/05/2024 8 :41 AM CDT DIFFERENTIAL AUTO STAT 09/05/2024 6:4 0 AM CDT CBC WITH AUTO DIFFERENTIAL STAT 09/05/2024 6:40 AM CDT EGFR Routine 09/05/2024 5:27 AM CDT PHOSPHORUS Routine 09/05/2024 5:27 AM CDT BILIRUBIN, DIRECT Routine 09/05/2024 5:2 7 AM CDT COMPREHENSIVE METABOLIC PANEL Routine 09/05/2024 5:27 AM CDT POCT GLUCOSE DEVICE Routine 09/05/2024 4 :29 AM CDT POCT GLUCOSE DEVICE Routine 09/04/2024 1 1:46 PM CDT POCT GLUCOSE DEVICE Routine 09/04/2024 8 :12 PM CDT POCT GLUCOSE DEVICE Routine 09/04/2024 3 :33 PM CDT AEROBIC AND ANAEROBIC CULTURE AND GRAM STAIN Routine 09/04/2024 2:50 PM CDT SURGICAL PATHOLOGY Routine 09/04/2024 2: 06 PM CDT Acute gangrenous appendicitis with perforation and peritonitis SC AN PROCEDURE PLACEHOLDER Routine 09/04/2024 1:45 PM CDT SC AN ELECTIVE ENDOTRACHEAL AIRWAY Routine 09/04/2024 1:45 PM CDT TRANSFUSE RED BLOOD CELLS Timed 09/04/2024 1:42 PM CDT SC AN PROCEDURE PLACEHOLDER Routine 09/04/2024 1:27 PM CDT LAPAROSCOPIC CHOLECYSTECTOMY 09/04/2024 1:16 PM CDT pain POCT GLUCOSE DEVICE Routine 09/04/2024 1 2:37 PM CDT PREPARE RBC STAT 09/04/2024 12:34 PM CDT POCT GLUCOSE DEVICE Routine 09/04/2024 7 :52 AM CDT EGFR Routine 09/04/2024 5:29 AM CDT DIFFERENTIAL AUTO Routine 09/04/2024 5:2 9 AM CDT PHOSPHORUS Routine 09/04/2024 5:29 AM CDT BILIRUBIN, DIRECT Routine 09/04/2024 5:2 9 AM CDT COMPREHENSIVE METABOLIC PANEL Routine 09/04/2024 5:29 AM CDT TYPE AND SCREEN Timed 09/04/2024 5:29 AM CDT CBC WITH AUTO DIFFERENTIAL Routine 09/04/2024 5:29 AM CDT POCT GLUCOSE DEVICE Routine 09/04/2024 4 :37 AM CDT POCT GLUCOSE DEVICE Routine 09/04/2024 1 2:01 AM CDT B CHECK SAMPLE Routine 09/03/2024 6:33 AM CDT EGFR Routine 09/03/2024 6:33 AM CDT PHOSPHORUS Routine 09/03/2024 6:33 AM CDT BILIRUBIN, DIRECT Routine 09/03/2024 6:3 3 AM CDT DIFFERENTIAL AUTO Routine 09/03/2024 6:3 3 AM CDT COMPREHENSIVE METABOLIC PANEL Routine 09/03/2024 6:33 AM CDT CBC WITH AUTO DIFFERENTIAL Routine 09/03/2024 6:33 AM CDT US RUQ IP Routine 09/02/2024 5:26 PM CDT TROPONIN T HIGH-SENSITIVITY 6-HOUR Timed 09/02/2024 4:20 PM CDT TROPONIN T HIGH-SENSITIVITY 4-HR Timed 09/02/2024 2:29 PM CDT TROPONIN T HIGH-SENSITIVITY 2-HOUR Timed 09/02/2024 11:08 AM CDT BLOOD CULTURE Routine 09/02/2024 11:08 AM CDT PHOSPHORUS Routine 09/02/2024 9:38 AM CDT MAGNESIUM Routine 09/02/2024 9:38 AM CDT TROPONIN T HIGH-SENSITIVITY SERIES (BASELINE, 2HR, 4HR, 6HR) Routine 09/02/2024 9:38 AM CDT SEPSIS LACTATE WITH REFLEX Routine 09/02/2024 9:38 AM CDT BLOOD CULTURE Routine 09/02/2024 9:38 AM CDT ECG 12-LEAD Routine 09/02/2024 8:21 AM CDT EGFR Routine 09/02/2024 6:11 AM CDT DIFFERENTIAL AUTO Routine 09/02/2024 6:1 1 AM CDT PHOSPHORUS Routine 09/02/2024 6:11 AM CDT BILIRUBIN, DIRECT Routine 09/02/2024 6:1 1 AM CDT COMPREHENSIVE METABOLIC PANEL Routine 09/02/2024 6:11 AM CDT CBC WITH AUTO DIFFERENTIAL Routine 09/02/2024 6:11 AM CDT EGFR Routine 09/01/2024 9:13 PM CDT PHOSPHORUS Routine 09/01/2024 9:13 PM CDT BILIRUBIN, DIRECT Routine 09/01/2024 9:1 3 PM CDT COMPREHENSIVE METABOLIC PANEL Routine 09/01/2024 9:13 PM CDT LIPID PANEL Timed 07/24/2024 4:21 PM CDT POCT HEMOGLOBIN A1C Routine 07/14/2024 1 1:10 AM CDT from Last 3 Months or Most Recently Relevant to Health Maintenance Results * eGFR (09/07/2024 6:20 AM CDT) eGFR 71 >=60 mL/min/1. 73 m2 Comment: Interpretive Data Reference Interval Normal ?>/= 90 mL/min/1.73m2 Mildly decreased* ? 60 - 89 mL/min/1.73m2 Mildly to moderately decreased ?45 - 59 mL/min/1.73m2 Moderately to severely decreased ??30 - 44 mL/min/1.73m2 Severely decreased ?15 - 29 mL/min/1.73m2 Kidney Failure ?< 15 ??mL/min/1.73m2 *Relative to young adult level Estimated glomerular filtration rate is determined by the 2020 CKD-EPI equation recommended by the National Kidney Foundation (A Unifying Approach to GFR Estimation: Recommendations of the NKF-ASK Task Force on Reassessing the Inclusion of Race in Diagnosing Kidney Disease, JASN 2020). The CKD-EPI equation should not be used for patients with unstable renal function and has not been validated in children and those over 70. Current interpretive data was last reviewed 2021. Blood 09/07/2024 6:20 AM CDT 09/07/2024 6:24 AM CDT us Milton Mclean MD LAB BLOOD ORDERABLES Final Result [facility] [address] Department [place] [address] * Differential, auto (09/07/2024 6:20 AM CDT) Neutrophil abs 5.4 1.5 - 6.5 K/cumm Imm gran abs 0.1 0.0 - 0.1 K/cumm [facility] Lymphocyte abs 0.9 0.8 - 3.3 K/cumm [facility] Monocyte abs 0.4 0.2 - 0.8 K/cumm [facility] Eosinophil abs 0.0 0.0 - 0.5 K/cumm [facility] Basophil abs 0.0 0.0 - 0.1 K/cumm [facility] Neutrophil pct 78.4 % [facility] Comment: Interpretive Data Percent cell count reference ranges are not reported, since discordance with absolute values may lead to misinterpretation of CBC data. Current Interpretive Data was last revised on 2018. Imm gran pct 2.0 % [facility] Comment: Interpretive Data Percent cell count reference ranges are not reported, since discordance with absolute values may lead to misinterpretation of CBC data. Current Interpretive Data was last revised on 2018. Lymphocyte pct 12.8 % [facility] Comment: Interpretive Data Percent cell count reference ranges are not reported, since discordance with absolute values may lead to misinterpretation of CBC data. Current Interpretive Data was last revised on 2018. Monocyte pct 6.1 % [facility] Comment: Interpretive Data Percent cell count reference ranges are not reported, since discordance with absolute values may lead to misinterpretation of CBC data. Current Interpretive Data was last revised on 2018. Eosinophil pct 0.6 % [facility] Comment: Interpretive Data Percent cell count reference ranges are not reported, since discordance with absolute values may lead to misinterpretation of CBC data. Current Interpretive Data was last revised on 2018. Basophil pct 0.1 % [facility] Comment: Interpretive Data Percent cell count reference ranges are not reported, since discordance with absolute values may lead to misinterpretation of CBC data. Current Interpretive Data was last revised on 2018. Blood 09/07/2024 6:20 AM CDT 09/07/2024 6:38 AM CDT Milton Mclean MD LAB BLOOD ORDERABLES Final Result Performing Organization Address City/[facility]/ZIP Co de Phone Number [facility] [address] [place] [address] * (ABNORMAL) CBC with auto differential (09/07/2024 6:20 AM CDT) Pathologist [facility] WBC 6.9 3.8 - 9.9 K/cumm Hgb 8.6(L) 13.0 - 17.5 g/dL [facility] Hct 29.5(L) 38.9 - 50.3 % [facility] Plt 173 150 - 400 K/cumm [facility] MPV 9.2 9.1 - 12.3 fL [facility] RBC 3.62(L) 4.30 - 5.80 M/cumm [facility] MCV 81.5 81.3 - 96.4 fL [facility] MCH 23.8(L) 27.1 - 33.3 pg [facility] MCHC 29.2(L) 32.3 - 35.7 g/dL [facility] RDW CV 17.2(H) 11.1 - 14.9 % [facility] RDW SD 50.4(H) 35.7 - 48.1 fL [facility] NRBC abs 0.02(H) 0.00 - 0.01 K/cumm [facility] Blood 09/07/2024 6:20 AM CDT 09/07/2024 6:38 AM CDT Milton Mclean MD LAB BLOOD ORDERABLES Final Result [facility] [address] Department [place] [address] * Phosphorus (09/07/2024 6:20 AM CDT) Pathologist [facility] Phosphorus, pl 3.2 2.3 - 4.5 mg/dL Blood 09/07/2024 6:20 AM CDT 09/07/2024 6:24 AM CDT Milton Mclean MD LAB BLOOD ORDERABLES Final Result [facility] [address] [facility] [place] [place] [employer] [place] [address] * Bilirubin, direct (09/07/2024 6:20 AM CDT) Pathologist [facility] Bilirubin, direct 0.2 0.1 - 0.3 mg/dL Blood 09/07/2024 6:20 AM CDT 09/07/2024 6:24 AM CDT Milton Mclean MD LAB BLOOD ORDERABLES Final Result Performing Organization Address [facility] de Phone Number [facility] [address] [facility] [place] [address] * (ABNORMAL) Comprehensive metabolic panel (09/07/2024 6:20 AM CDT) Pathologist [facility] Sodium 135 135 - 145 mmol/L Potassium, pl 4.1 3.3 - 4.9 mmol/L [facility] Chloride 104 97 - 110 mmol/L [facility] CO2 19(L) 22 - 32 mmol/L [facility] Anion gap 12 2 - 15 mmol/L [facility] BUN 24 6 - 25 mg/dL [facility] Creatinine 1.11 0.80 - 1.30 mg/dL [facility] Glucose 111 70 - 199 mg/dL [facility] Comment: Interpretive Data Fasting glucose >/= 126 mg/dl is diagnostic for diabetes. ?? Fasting is defined as no caloric intake for at least 8 hours. Fasting glucose between 100 mg/dl to 125 mg/dl is diagnostic of prediabetes. In a patient with classic symptoms of hyperglycemia or hyperglycemic crisis, a random glucose >/= 200 mg/dl is diagnostic for diabetes. In the absence of unequivocal hyperglycemia, results should be confirmed by repeat testing. The classification and Diagnosis of Diabetes Diabetes Care 202; 46: S19-S40. Current interpretive data was last revised 2022. Calcium 7.6(L) 8.5 - 10.3 mg/dL [facility] Bilirubin, total 0.3 0.1 - 1.2 mg/dL [facility] Protein, pl 6.0(L) 6.5 - 8.5 g/dL [facility] Albumin 2.4(L) 3.5 - 5.0 g/dL [facility] Alk phos 156(H) 40 - 130 Units/L [facility] ALT 20 7 - 55 Units/L [facility] AST 38 10 - 50 Units/L [facility] Blood 09/07/2024 6:20 AM CDT 09/07/2024 6:24 AM CDT us Milton Mclean MD LAB BLOOD ORDERABLES Final Result [facility] [address] Department [place] [address] * eGFR (09/06/2024 12:32 PM CDT) eGFR 72 >=60 mL/min/1. 73 m2 Comment: Interpretive Data Reference Interval Normal ?>/= 90 mL/min/1.73m2 Mildly decreased* ? 60 - 89 mL/min/1.73m2 Mildly to moderately decreased ?45 - 59 mL/min/1.73m2 Moderately to severely decreased ??30 - 44 mL/min/1.73m2 Severely decreased ?15 - 29 mL/min/1.73m2 Kidney Failure ?< 15 ??mL/min/1.73m2 *Relative to young adult level Estimated glomerular filtration rate is determined by the 2020 CKD-EPI equation recommended by the National Kidney Foundation (A Unifying Approach to GFR Estimation: Recommendations of the NKF-ASK Task Force on Reassessing the Inclusion of Race in Diagnosing Kidney Disease, JASN 202). The CKD-EPI equation should not be used for patients with unstable renal function and has not been validated in children and those over 70. Current interpretive data was last reviewed 2021. Blood 09/06/2024 12:3 2 PM CDT 09/06/2024 12:43 PM CDT us Praveen Garduno MD LAB BLOOD ORDERABLES Final Res ult [facility] [address] [place] [address] * (ABNORMAL) Differential, auto (09/06/2024 12:32 PM CDT) Neutrophil abs 4.9 1.5 - 6.5 K/cumm Imm gran abs 0.1 0.0 - 0.1 K/cumm [facility] Lymphocyte abs 0.6(L) 0.8 - 3.3 K/cumm [facility] Monocyte abs 0.4 0.2 - 0.8 K/cumm [facility] Eosinophil abs 0.0 0.0 - 0.5 K/cumm [facility] Basophil abs 0.0 0.0 - 0.1 K/cumm [facility] Neutrophil pct 81.5 % [facility] Comment: Interpretive Data Percent cell count reference ranges are not reported, since discordance with absolute values may lead to misinterpretation of CBC data. Current Interpretive Data was last revised on 2018. Imm gran pct 2.2 % [facility] Comment: Interpretive Data Percent cell count reference ranges are not reported, since discordance with absolute values may lead to misinterpretation of CBC data. Current Interpretive Data was last revised on 2018. Lymphocyte pct 9.9 % [facility] Comment: Interpretive Data Percent cell count reference ranges are not reported, since discordance with absolute values may lead to misinterpretation of CBC data. Current Interpretive Data was last revised on 2018. Monocyte pct 6.2 % [facility] Comment: Interpretive Data Percent cell count reference ranges are not reported, since discordance with absolute values may lead to misinterpretation of CBC data. Current Interpretive Data was last revised on 2018. Eosinophil pct 0.0 % [facility] Comment: Interpretive Data Percent cell count reference ranges are not reported, since discordance with absolute values may lead to misinterpretation of CBC data. Current Interpretive Data was last revised on 2018. Basophil pct 0.2 % [facility] Comment: Interpretive Data Percent cell count reference ranges are not reported, since discordance with absolute values may lead to misinterpretation of CBC data. Current Interpretive Data was last revised on 2018. Blood 09/06/2024 12:3 2 PM CDT 09/06/2024 12:43 PM CDT us Praveen Garduno MD LAB BLOOD ORDERABLES Final Res ult [facility] [address] Department [place] [address] * (ABNORMAL) CBC with auto differential (09/06/2024 12:32 PM CDT) WBC 6.0 3.8 - 9.9 K/cumm Hgb 7.7(L) 13.0 - 17.5 g/dL [facility] Hct 25.7(L) 38.9 - 50.3 % [facility] Plt 156 150 - 400 K/cumm [facility] MPV 8.6(L) 9.1 - 12.3 fL [facility] RBC 3.17(L) 4.30 - 5.80 M/cumm [facility] MCV 81.1(L) 81.3 - 96.4 fL [facility] MCH 24.3(L) 27.1 - 33.3 pg [facility] MCHC 30.0(L) 32.3 - 35.7 g/dL [facility] RDW CV 17.1(H) 11.1 - 14.9 % [facility] RDW SD 50.9(H) 35.7 - 48.1 fL [facility] NRBC abs 0.02(H) 0.00 - 0.01 K/cumm [facility] Blood 09/06/2024 12:3 2 PM CDT 09/06/2024 12:43 PM CDT Milton Mclean MD LAB BLOOD ORDERABLES Final Result Performing Organization Address City/[facility]/ZIP Co de Phone Number [facility] [address] [facility] [place] [address] * Phosphorus (09/06/2024 12:32 PM CDT) Pathologist [facility] Phosphorus, pl 3.1 2.3 - 4.5 mg/dL Blood 09/06/2024 12:3 2 PM CDT 09/06/2024 12:43 PM CDT Praveen Garduno MD LAB BLOOD ORDERABLES Final Res ult Performing Organization Address [facility] Co de Phone Number [facility] [address] [place] [address] * Bilirubin, direct (09/06/2024 12:32 PM CDT) Pathologist [facility] Bilirubin, direct 0.2 0.1 - 0.3 mg/dL Blood 09/06/2024 12:3 2 PM CDT 09/06/2024 12:43 PM CDT Praveen Garduno MD LAB BLOOD ORDERABLES Final Res ult Performing Organization Address City/[facility]/ZIP Co de Phone Number [facility] [address] [facility] [employer] [place], [place] [id number] * (ABNORMAL) Comprehensive metabolic panel (09/06/2024 12:32 PM CDT) Sodium 145 135 - 145 mmol/L Potassium, pl 3.6 3.3 - 4.9 mmol/L [facility] Chloride 107 97 - 110 mmol/L [facility] CO2 18(L) 22 - 32 mmol/L [facility] Anion gap 20(H) 2 - 15 mmol/L [facility] BUN 20 6 - 25 mg/dL [facility] Creatinine 1.09 0.80 - 1.30 mg/dL [facility] Glucose 123 70 - 199 mg/dL [facility] Comment: Interpretive Data Fasting glucose >/= 126 mg/dl is diagnostic for diabetes. ?? Fasting is defined as no caloric intake for at least 8 hours. Fasting glucose between 100 mg/dl to 125 mg/dl is diagnostic of prediabetes. In a patient with classic symptoms of hyperglycemia or hyperglycemic crisis, a random glucose >/= 200 mg/dl is diagnostic for diabetes. In the absence of unequivocal hyperglycemia, results should be confirmed by repeat testing. The classification and Diagnosis of Diabetes Diabetes Care 2021; 46: S19-S40. Current interpretive data was last revised 2022. Calcium 7.4(L) 8.5 - 10.3 mg/dL [facility] Bilirubin, total 0.3 0.1 - 1.2 mg/dL [facility] Protein, pl 6.2(L) 6.5 - 8.5 g/dL [facility] Albumin 2.7(L) 3.5 - 5.0 g/dL [facility] Alk phos 145(H) 40 - 130 Units/L [facility] ALT 21 7 - 55 Units/L [facility] AST 35 10 - 50 Units/L [facility] Blood 09/06/2024 12:3 2 PM CDT 09/06/2024 12:43 PM CDT us Praveen Garduno MD LAB BLOOD ORDERABLES Final Res ult [facility] [address] Department [place] [address] * POCT glucose (09/06/2024 6:33 AM CDT) [facility] Glucose, POC 141 70 - 199 mg/dL Comment: For Glucose values <35 mg/dl when Hematocrit is >60 mg/dl,the test may not accurately detect significant hypoglycemia,and testing in the Laboratory should be considered if clinically indicated. Blood 09/06/2024 6:33 AM CDT 09/06/2024 6:33 AM CDT us Giovanny Garcia MD LAB POCT ORDERABLES - DEVICE Fin al Result Performing Organization Address [facility]/ZIP Co de Phone Number [facility] [address] [place] [address] * FL ERCP Biliary and Pancreatic (09/05/2024 2:57 PM CDT) N[facility]ative [facility] 09/05/2024 3:06 PM CDT The images from this study are not interpreted by Radiology. ??Please refer to the physician's procedure / OR operative note. us Milton Mclean MD IMG FLUOROSCOPY PROCEDURES Final Result Performing Organization Address [facility] Co de Phone Number [facility] * ERCP (09/05/2024 2:20 PM CDT) Anatomical Region Laterality Modality Other Narrative Procedure Note Milton Mclean MD - 09/05/2024 2:20 PM CDT ENDOSCOPY LAB Patient Name: Abiel Walker Procedure Date: 09/05/2024 2:20 PM Admit Type: Inpatient Room: [facility] Date of : 1950 Instrument Name: [id number] Gender: Male Note Status: Finalized Procedure: ERCP Indications: Bile leak Providers: Milton Mclean M.D. Referring MD: Juan Connolly M.D. Medicines: Monitored Anesthesia Care, Indomethacin 100 mg SC Complications: No immediate complications. Estimated Blood Loss: Estimated blood loss: none. Procedure: Pre-Anesthesia Assessment: - The risks and benefits of the procedure and the sedation options and risks were discussed with the patient. All questions were answered and informed consent was obtained. - Immediately prior to administration ofmedications, the patient was re-assessed for adequacy to receive sedatives. The benefits, risks, and alternatives to theprocedure and sedation were discussed and informed consentwas obtained. The [id number] was introduced through the mouth, and used to inject contrast into and used to inject contrast into the bile duct and ventral pancreatic duct. The ERCP was accomplished without difficulty. The patient tolerated the procedurewell. Findings: A steel fixer film of the abdomen was obtained. One percutaneous drainending in the Right upper quadrant was seen. The esophagus was successfully intubated under direct vision without detailed examination of the pharynx, larynx, and associated structures, and upper GI tract. The upper GI tract was grossly normal. The major papilla was normal. On initial attempt to cannulate the bile duct, the ventral pancreaticduct was deeply cannulated with the short-nosed traction sphincterotome. Contrast was injected. I personally interpreted the pancreatic duct images. Ductal flow of contrast was adequate. Image quality was adequate. Contrast extended to the pancreatic duct. An incomplete pancreas divisum was identified. A 0.035 inch x 260 cm straight Dreamwire was passed into the ventral pancreatic duct and left inplace to cannulate via the double wire technique. A 0.025 inch x 450 cm straight Visiglide wire was passed into the biliary tree. The short-nosed traction sphincterotome was passed over the guidewire and the bile duct was then deeply cannulated. Contrast was injected. Extravasation of contrast originating from the gallbladder wasobserved. The common bile duct was otherwise normal and measured 4 mm ingreatest dimension. A 6 mm biliary sphincterotomy was made with a traction (standard) sphincterotome using ERBE electrocautery. There was no post-sphincterotomy bleeding. To discover objects, the biliary treewas swept with an 11.5 mm balloon starting at the upper third of the main bile duct. Nothing was found. One 10 Fr by 7 cm plastic stent with a single external flap and a single internal flap was placed into the common bile duct. Bile flowed through the stent. The stent was ingood position. One 5 Fr by 3 cm plastic stent with a 3/4 external pigtailwas placed into the ventral pancreatic duct. Bile flowed through thestent. The stent was in good position. The endoscope was withdrawn from the patient. Impression: - A leak was found from the gallbladder. Treatedwith biliary sphincterotomy and the placement of aplastic stent. - Pancreas divisum was found. A protectivepancreatic duct stent was placed to reduce the risk of postERCP pancreatitis. Recommendation: - Observe patient's clinical course. - Watch for pancreatitis, bleeding, perforation,and cholangitis. - Avoid aspirin and nonsteroidal anti-inflammatory medicines for 10 days. - [facility] - Repeat ERCP in 3 months to remove stent. - KUB in 14 days to assess for pancreatic ductstent passage. If still in place schedule EGD forremoval. - NPO x 4 hours, then clear liquids only today. Attending Participation: I personally performed the entire procedure. Electronically signed by Milton Mclean M.D. Milton Mclean M.D. 09/05/2024 4:02:36 PM This document was signed electronically. Number of Addenda: 0 Note Initiated On: 09/05/2024 2:20 PM Scope In: Scope Out: us Milton Mclean MD ENDOSCOPY PROCEDURES Final Result * POCT glucose (09/05/2024 1:02 PM CDT) Glucose, POC 164 70 - 199 mg/dL Comment: For Glucose values <35 mg/dl when Hematocrit is >60 mg/dl,the test may not accurately detect significant hypoglycemia,and testing in the Laboratory should be considered if clinically indicated. Blood 09/05/2024 1:02 PM CDT 09/05/2024 1:02 PM CDT Giovanny Garcia MD LAB POCT ORDERABLES - DEVICE Fin al Result Performing Organization Address City/[facility]/ZIP Co de Phone Number [facility] [address] Department [employer] [place], [place] [id number] * POCT glucose (09/05/2024 8:41 AM CDT) Glucose, POC 142 70 - 199 mg/dL Comment: For Glucose values <35 mg/dl when Hematocrit is >60 mg/dl,the test may not accurately detect significant hypoglycemia,and testing in the Laboratory should be considered if clinically indicated. Blood 09/05/2024 8:41 AM CDT 09/05/2024 8:41 AM CDT Giovanny Garcia MD LAB POCT ORDERABLES - DEVICE Fin al Result Performing Organization Address City/[facility]/ZIP Co de Phone Number [facility] [address] [place] [address] * (ABNORMAL) Differential, auto (09/05/2024 6:40 AM CDT) Pathologist [facility] Neutrophil abs 6.0 1.5 - 6.5 K/cumm Imm gran abs 0.1 0.0 - 0.1 K/cumm [facility] Lymphocyte abs 0.5(L) 0.8 - 3.3 K/cumm [facility] Monocyte abs 0.3 0.2 - 0.8 K/cumm [facility] Eosinophil abs 0.0 0.0 - 0.5 K/cumm [facility] Basophil abs 0.0 0.0 - 0.1 K/cumm [facility] Neutrophil pct 85.1 % [facility] Comment: Interpretive Data Percent cell count reference ranges are not reported, since discordance with absolute values may lead to misinterpretation of CBC data. Current Interpretive Data was last revised on 2018. Imm gran pct 2.0 % [facility] Comment: Interpretive Data Percent cell count reference ranges are not reported, since discordance with absolute values may lead to misinterpretation of CBC data. Current Interpretive Data was last revised on 2018. Lymphocyte pct 7.6 % [facility] Comment: Interpretive Data Percent cell count reference ranges are not reported, since discordance with absolute values may lead to misinterpretation of CBC data. Current Interpretive Data was last revised on 2018. Monocyte pct 4.8 % [facility] Comment: Interpretive Data Percent cell count reference ranges are not reported, since discordance with absolute values may lead to misinterpretation of CBC data. Current Interpretive Data was last revised on 2018. Eosinophil pct 0.1 % [facility] Comment: Interpretive Data Percent cell count reference ranges are not reported, since discordance with absolute values may lead to misinterpretation of CBC data. Current Interpretive Data was last revised on 2018. Basophil pct 0.4 % [facility] Comment: Interpretive Data Percent cell count reference ranges are not reported, since discordance with absolute values may lead to misinterpretation of CBC data. Current Interpretive Data was last revised on 2018. Blood 09/05/2024 6:40 AM CDT 09/05/2024 6:40 AM CDT us Deanna Bangura MD LAB BLOOD ORDERABLES Final Res ult [facility] [address] Department [place] [address] * (ABNORMAL) CBC with auto differential (09/05/2024 6:40 AM CDT) WBC 7.1 3.8 - 9.9 K/cumm Hgb 10.0(L) 13.0 - 17.5 g/dL [facility] Hct 34.3(L) 38.9 - 50.3 % [facility] Plt 185 150 - 400 K/cumm [facility] MPV 9.4 9.1 - 12.3 fL [facility] RBC 4.24(L) 4.30 - 5.80 M/cumm [facility] MCV 80.9(L) 81.3 - 96.4 fL [facility] MCH 23.6(L) 27.1 - 33.3 pg [facility] MCHC 29.2(L) 32.3 - 35.7 g/dL [facility] RDW CV 16.9(H) 11.1 - 14.9 % [facility] RDW SD 49.4(H) 35.7 - 48.1 fL [facility] NRBC abs 0.00 0.00 - 0.01 K/cumm [facility] Blood 09/05/2024 6:40 AM CDT 09/05/2024 6:46 AM CDT us Deanna Bangura MD LAB BLOOD ORDERABLES Final Res ult [facility] [address] [place] [address] * eGFR (09/05/2024 5:27 AM CDT) eGFR >90 >=60 mL/min/1. 73 m2 Comment: Interpretive Data Reference Interval Normal ?>/= 90 mL/min/1.73m2 Mildly decreased* ? 60 - 89 mL/min/1.73m2 Mildly to moderately decreased ?45 - 59 mL/min/1.73m2 Moderately to severely decreased ??30 - 44 mL/min/1.73m2 Severely decreased ?15 - 29 mL/min/1.73m2 Kidney Failure ?< 15 ??mL/min/1.73m2 *Relative to young adult level Estimated glomerular filtration rate is determined by the 2020 CKD-EPI equation recommended by the National Kidney Foundation (A Unifying Approach to GFR Estimation: Recommendations of the NKF-ASK Task Force on Reassessing the Inclusion of Race in Diagnosing Kidney Disease, JASN 2020). The CKD-EPI equation should not be used for patients with unstable renal function and has not been validated in children and those over 70. Current interpretive data was last reviewed 2021. Blood 09/05/2024 5:27 AM CDT 09/05/2024 5:41 AM CDT us Jose Enriquez MD LAB BLOOD ORDERABLES Final Re sult Performing Organization Address City/[facility]/ZIP Co de Phone Number [facility] [address] Department of [employer] [place], [place] [id number] * Phosphorus (09/05/2024 5:27 AM CDT) Phosphorus, pl 4.4 2.3 - 4.5 mg/dL Blood 09/05/2024 5:27 AM CDT 09/05/2024 5:41 AM CDT us Jose Enriquez MD LAB BLOOD ORDERABLES Final Re sult [facility] [address] [place] [address] * Bilirubin, direct (09/05/2024 5:27 AM CDT) Bilirubin, direct 0.3 0.1 - 0.3 mg/dL Blood 09/05/2024 5:27 AM CDT 09/05/2024 5:41 AM CDT us Jose Enriquez MD LAB BLOOD ORDERABLES Final Re sult [facility] [address] [place] [address] * (ABNORMAL) Comprehensive metabolic panel (09/05/2024 5:27 AM CDT) Sodium 139 135 - 145 mmol/L Potassium, pl 4.3 3.3 - 4.9 mmol/L [facility] Chloride 105 97 - 110 mmol/L [facility] CO2 22 22 - 32 mmol/L [facility] Anion gap 12 2 - 15 mmol/L [facility] BUN 12 6 - 25 mg/dL [facility] Creatinine 0.83 0.80 - 1.30 mg/dL [facility] Glucose 139 70 - 199 mg/dL [facility] Comment: Interpretive Data Fasting glucose >/= 126 mg/dl is diagnostic for diabetes. ?? Fasting is defined as no caloric intake for at least 8 hours. Fasting glucose between 100 mg/dl to 125 mg/dl is diagnostic of prediabetes. In a patient with classic symptoms of hyperglycemia or hyperglycemic crisis, a random glucose >/= 200 mg/dl is diagnostic for diabetes. In the absence of unequivocal hyperglycemia, results should be confirmed by repeat testing. The classification and Diagnosis of Diabetes Diabetes Care 202; 46: S19-S40. Current interpretive data was last revised 2022. Calcium 8.3(L) 8.5 - 10.3 mg/dL [facility] Bilirubin, total 0.5 0.1 - 1.2 mg/dL [facility] Protein, pl 6.8 6.5 - 8.5 g/dL [facility] Albumin 3.1(L) 3.5 - 5.0 g/dL [facility] Alk phos 175(H) 40 - 130 Units/L [facility] ALT 24 7 - 55 Units/L [facility] AST 42 10 - 50 Units/L [facility] Blood 09/05/2024 5:27 AM CDT 09/05/2024 5:41 AM CDT Jose Enriquez MD LAB BLOOD ORDERABLES Final Re sult Performing Organization Address [facility]/ZIP Co de Phone Number [facility] [address] [place] [address] * POCT glucose (09/05/2024 4:29 AM CDT) Glucose, POC 164 70 - 199 mg/dL Comment: For Glucose values <35 mg/dl when Hematocrit is >60 mg/dl,the test may not accurately detect significant hypoglycemia,and testing in the Laboratory should be considered if clinically indicated. Blood 09/05/2024 4:29 AM CDT 09/05/2024 4:29 AM CDT Deanna Bangura MD LAB POCT ORDERABLES - DEVICE F inal Result Performing Organization Address [facility] Co de Phone Number [facility] [address] [place] [address] * POCT glucose (09/04/2024 11:46 PM CDT) Glucose, POC 147 70 - 199 mg/dL Comment: For Glucose values <35 mg/dl when Hematocrit is >60 mg/dl,the test may not accurately detect significant hypoglycemia,and testing in the Laboratory should be considered if clinically indicated. Blood 09/04/2024 11:4 6 PM CDT 09/04/2024 11:46 PM CDT Deanna Bangura MD LAB POCT ORDERABLES - DEVICE F inal Result Performing Organization Address [facility] Co de Phone Number [facility] [address] [facility] [place] [place] [address] * POCT glucose (09/04/2024 8:12 PM CDT) Glucose, POC 152 70 - 199 mg/dL Comment: For Glucose values <35 mg/dl when Hematocrit is >60 mg/dl,the test may not accurately detect significant hypoglycemia,and testing in the Laboratory should be considered if clinically indicated. Blood 09/04/2024 8:12 PM CDT 09/04/2024 8:12 PM CDT Deanna Bangura MD LAB POCT ORDERABLES - DEVICE F inal Result Performing Organization Address [facility] Co de Phone Number [facility] [address] [place] [address] * POCT glucose (09/04/2024 3:33 PM CDT) Glucose, POC 139 70 - 199 mg/dL Comment: For Glucose values <35 mg/dl when Hematocrit is >60 mg/dl,the test may not accurately detect significant hypoglycemia,and testing in the Laboratory should be considered if clinically indicated. Blood 09/04/2024 3:33 PM CDT 09/04/2024 3:33 PM CDT Deanna Bangura MD LAB POCT ORDERABLES - DEVICE F inal Result Performing Organization Address [facility] de Phone Number [facility] [address] [place] [address] * Aerobic and anaerobic culture and gram stain Bile Abdominal (09/04/2024 2:50 PM CDT) Pathologist [facility] Direct Specimen Exam Stain: No organisms seen. No polymorphonuclear leukocytes seen. Report Final Report: No growth [facility] Bile (Abdominal) 09/04/2024 2:50 PM CDT 09/04/2024 3:18 PM CDT Narrative [facility] - 09/07/2024 2:00 PM CDT Bile Praveen Garduno MD LAB MICROBIOLOGY - GENERAL ORD ERABLES Final Result Performing Organization Address [facility] Co de Phone Number [facility] [address] Department of Laboratories [place], [place] [phone] * Transfuse RBC (09/04/2024 2:32 PM CDT) Blood us Gorge Jones MD BLOOD TRANSFUSION ORDERABLE S Edited Result - Final [place] [address] [place] [address] * Surgical pathology (09/04/2024 2:06 PM CDT) Tissue (Gallbladder) 09/04/2024 2:06 PM CDT Comment:Placed in Formalin a t end of Procedure. Narrative PATHOLOGY [facility] - 09/07/2024 4:40 PM CDT [place] [address] [place], [place] ??[address] Tele: ?? Radha Milner MD - Jewelry Manager Note to Patients: This report may contain a detailed description of human tissue sent by a health care provider to the laboratory for pathologic evaluation. The content of this report is essential for diagnosis and may provide important critical findings. This information may be unfamiliar to patients to review without a medical professional present. It is advised that the patient review this report in the presence of a health care provider who can answer questions and explain the details. SURGICAL PATHOLOGY REPORT Patient Name: ??ABIEL WALKER Address: ??[address] [place] [address] ??64 Gender: ??M : ??1950 (Age: 74) Service: ??Surgery Location: ??[id number], ?? Hospital #: ??[id number] Patient Type: ??[facility] IN[facility]IENT Accession #: ? [id number] Taken: ? 09/04/2024 Received ? 09/04/2024 Reported: ? 09/07/2024 Physician(s): ? Barron Mukherjee M.D. DIAGNOSIS: Gallbladder, laparoscopic cholecystectomy: ? - Chronic and acute cholecystitis with necrosis as/09/06/2024 08:57 Examining Pathologist: [place] M.D. Report Reviewed and Electronically Signed By ??[place] M.D. SPECIMEN TYPE: A: GALLBLADDER CLINICAL IMPRESSION AND HISTORY: Gangrenous appendicitis with perforation and peritonitis. ??Postoperative diagnosis-acute gangrenous perforated cholecystitis. GROSS DESCRIPTION: Received in formalin labeled with ABIEL WALKER and gallbladder is a 7.3 x 3.5 cm disrupted, necrotic gallbladder. ??The serosa is black-green. ??The gallbladder is opened and displays velvety black-green mucosa and a wall thickness of 0.3 cm. ??Located in the gallbladder is bloody red bile without gallstones. ??Contents of the container are filtered yielding no gallstones and a 2.3 x 1.2 x 0.3 cm additional fragment of gallbladder. ??No mass lesion is grossly identified. Horse Breaker sections are submitted as follows: ??A1 - Gallbladder including cystic duct margin. ??Additional sections, A2-A4 - Additional sections of gallbladder. ?? cuh/09/06/2024 10:07 ? JAP,CUH ?? , LKB MICROSCOPIC DESCRIPTION: Microscopic examination supports the above captioned diagnosis. ??Epithelium is predominantly denuded and shows reactive epithelial atypia in a background of acute and chronic inflammation, necrosis, and fibrosis. ??Immunostain is employed with appropriate control for further evaluation. ??Pancytokeratin is negative for distinct infiltrative epithelial elements. ??No malignancy is evident. Clerical Data Follows A; [id number], [id number] REPORT IMAGES AND/OR SCANNED DOCUMENTS ONLY VIEWABLE IN PDF FORMAT The immunohistochemical test(s) cited in this report, if any, was developed and its performance characteristics determined by [facility] Pathology Department. ??It has not been cleared or approved by the U.S. Food and Drug Administration. ??The FDA has determined that such clearance or approval is not necessary. ??This test is used for clinical purposes. ??It should not be regarded as investigational or for research. ??[facility] Laboratory is certified under the Clinical Laboratory Improvement Amendments of 1988 (CLIA) as qualified to perform high complexity testing. ??Immunostains were performed on formalin-fixed paraffin embedded tissue using a polymer diaminobenzidine chromogen detection system. Antibodies used may include clone SP1 (rabbit monoclonal, estrogen receptor), clone 1E2 (rabbit monoclonal progesterone receptor), Ki-67 (rabbit monoclonal, 30-9), CD117 (rabbit polyclonal, c-kit), and anti-Her-2/michelle (4B5) (rabbit monoclonal primary antibody). ??In the event that immunohistochemistry or special stains have been performed, attending physician has confirmed appropriateness of controls. ??Frozen section, operating room consultation, gross examination and dissection, and case sign out may have been performed in part or completely in the following laboratories: [facility], [address] [place] [address] [facility], [address] [place] [id number]. Praveen Garduno MD LAB PATHOLOGY ORDERABLES Final Result PATHOLOGY [facility] Laboratory Receiving [facility] [place], [place] [phone] * SC AN ELECTIVE ENDOTRACHEAL AIRWAY, SC AN PROCEDURE PLACEHOLDER (09/04/2024 1:45 PM CDT) Narrative Myesha Amador CRNA - 09/04/2024 1:45 PM CDT Myesha Amador CRNA ? 09/04/2024 ??1:45 PM Airway Patient location: OR Urgency: elective Indications for airway management: anesthesia Difficult airway: no Staff: Placed by: CREDIT OR LOANS OFFICER: Myesha Amador CRNA Emergent airway documentation: Risks and benefits discussed: yes Consent obtained: yes Consent given by: patient Airway prep: Preoxygenated: yes Patient position: sniffing Mask difficulty assessment: 1 - vent by mask Sedation level during airway: GA Final airway details: Final airway type: endotracheal airway Tube type: ETT ETT size: 8.0 mm Cuffed: yes Technique used for successful ETT placement: direct laryngoscopy Devices/Methods used in placement: stylet Insertion site: oral Blade type: Lange Blade size: 3 Cormack-Lehane (direct): grade I - full view of glottis Cuff volume: 8 mL Cuff inflated with: air ETT to lips: 23 cm Placement verified by: auscultation and CO2 detection Airway secured with: silk tape Number of attempts: 1 Additional comments: Eyes taped prior to masking. Lips/dentition unchanged from preop. Gorge Jones MD ANESTHESIA ORDERABLES Final Result * SC AN PROCEDURE PLACEHOLDER (09/04/2024 1:27 PM CDT) Narrative Myesha Amador CRNA - 09/04/2024 1:27 PM CDT Myesha Amador CRNA ? 09/04/2024 ??1:28 PM Peripheral IV Catheter Patient location: OR End time: 09/04/2024 1:27 PM Staff: Placed by: Anesthesiologist: Gorge Jones MD Preprocedure prep: Prep solution: chlorhexadine PPE: provider hat/mask and gloves PIV line: Laterality: left Site: forearm Catheter size: 18 g Technique: direct visualization Procedure details: good blood return and occlusive dressing applied Number of attempts: 1 Assessment: Events: patient tolerated procedure well with no complications us Gorge Jones MD ANESTHESIA ORDERABLES Final Result * POCT glucose (09/04/2024 12:37 PM CDT) [facility] Glucose, POC 107 70 - 199 mg/dL Comment: For Glucose values <35 mg/dl when Hematocrit is >60 mg/dl,the test may not accurately detect significant hypoglycemia,and testing in the Laboratory should be considered if clinically indicated. Blood 09/04/2024 12:3 7 PM CDT 09/04/2024 12:37 PM CDT Deanna Bangura MD LAB POCT ORDERABLES - DEVICE F inal Result [facility] [address] Department [place] [address] * Prepare RBC: 1 Units (09/04/2024 12:34 PM CDT) [facility] Product code [id number] Unit Number [id number] [facility] Product Blood Type OPOS [facility] Dispense Status PRESUMED TRANSFUSED [facility] Blood 09/04/2024 12:3 4 PM CDT Narrative [facility] - 09/05/2024 10:15 AM CDT Specify Procedure:->Hold for procedure Are special requirements needed? (All products are leukoreduced and CMV- safe)- >No Date required:-[id number] LRRBC # of [id number] Reasons:-Pre-op Hgb <8 g/dL} Praveen Garduno MD BLOOD BANK PRODUCT ORDERABLES Final Result Performing Organization Address [facility] de Phone Number [facility] [address] Department of Laboratories [place], [place] [phone] * POCT glucose (09/04/2024 7:52 AM CDT) [facility] Glucose, POC 107 70 - 199 mg/dL Comment: For Glucose values <35 mg/dl when Hematocrit is >60 mg/dl,the test may not accurately detect significant hypoglycemia,and testing in the Laboratory should be considered if clinically indicated. Blood 09/04/2024 7:52 AM CDT 09/04/2024 7:52 AM CDT Deanna Bangura MD LAB POCT ORDERABLES - DEVICE F inal Result Performing Organization Address [facility] de Phone Number [facility] [address] [place] [address] * eGFR (09/04/2024 5:29 AM CDT) [facility] eGFR >90 >=60 mL/min/1. 73 m2 Comment: Interpretive Data Reference Interval Normal ?>/= 90 mL/min/1.73m2 Mildly decreased* ? 60 - 89 mL/min/1.73m2 Mildly to moderately decreased ?45 - 59 mL/min/1.73m2 Moderately to severely decreased ??30 - 44 mL/min/1.73m2 Severely decreased ?15 - 29 mL/min/1.73m2 Kidney Failure ?< 15 ??mL/min/1.73m2 *Relative to young adult level Estimated glomerular filtration rate is determined by the 2020 CKD-EPI equation recommended by the National Kidney Foundation (A Unifying Approach to GFR Estimation: Recommendations of the NKF-ASK Task Force on Reassessing the Inclusion of Race in Diagnosing Kidney Disease, JASN 2020). The CKD-EPI equation should not be used for patients with unstable renal function and has not been validated in children and those over 70. Current interpretive data was last reviewed 2021. Blood 09/04/2024 5:29 AM CDT 09/04/2024 5:39 AM CDT Jose Enriquez MD LAB BLOOD ORDERABLES Final Re sult [facility] [address] [place] [address] * Differential, auto (09/04/2024 5:29 AM CDT) Neutrophil abs 3.0 1.5 - 6.5 K/cumm Imm gran abs 0.1 0.0 - 0.1 K/cumm [facility] Lymphocyte abs 1.0 0.8 - 3.3 K/cumm [facility] Monocyte abs 0.6 0.2 - 0.8 K/cumm [facility] Eosinophil abs 0.2 0.0 - 0.5 K/cumm [facility] Basophil abs 0.1 0.0 - 0.1 K/cumm [facility] Neutrophil pct 61.1 % [facility] Comment: Interpretive Data Percent cell count reference ranges are not reported, since discordance with absolute values may lead to misinterpretation of CBC data. Current Interpretive Data was last revised on 2018. Imm gran pct 1.2 % [facility] Comment: Interpretive Data Percent cell count reference ranges are not reported, since discordance with absolute values may lead to misinterpretation of CBC data. Current Interpretive Data was last revised on 2018. Lymphocyte pct 20.5 % [facility] Comment: Interpretive Data Percent cell count reference ranges are not reported, since discordance with absolute values may lead to misinterpretation of CBC data. Current Interpretive Data was last revised on 2018. Monocyte pct 11.3 % [facility] Comment: Interpretive Data Percent cell count reference ranges are not reported, since discordance with absolute values may lead to misinterpretation of CBC data. Current Interpretive Data was last revised on 2018. Eosinophil pct 4.7 % [facility] Comment: Interpretive Data Percent cell count reference ranges are not reported, since discordance with absolute values may lead to misinterpretation of CBC data. Current Interpretive Data was last revised on 2018. Basophil pct 1.2 % [facility] Comment: Interpretive Data Percent cell count reference ranges are not reported, since discordance with absolute values may lead to misinterpretation of CBC data. Current Interpretive Data was last revised on 2018. Blood 09/04/2024 5:29 AM CDT 09/04/2024 5:39 AM CDT Jose Enriquez MD LAB BLOOD ORDERABLES Final Re sult [facility] [address] Department of Laboratories [place], [place] [phone] * (ABNORMAL) CBC with auto differential (09/04/2024 5:29 AM CDT) WBC 4.9 3.8 - 9.9 K/cumm Hgb 7.6(L) 13.0 - 17.5 g/dL [facility] Hct 26.2(L) 38.9 - 50.3 % [facility] Plt 192 150 - 400 K/cumm [facility] MPV 9.3 9.1 - 12.3 fL [facility] RBC 3.29(L) 4.30 - 5.80 M/cumm [facility] MCV 79.6(L) 81.3 - 96.4 fL [facility] MCH 23.1(L) 27.1 - 33.3 pg [facility] MCHC 29.0(L) 32.3 - 35.7 g/dL [facility] RDW CV 16.7(H) 11.1 - 14.9 % [facility] RDW SD 47.9 35.7 - 48.1 fL [facility] NRBC abs 0.00 0.00 - 0.01 K/cumm [facility] Blood 09/04/2024 5:2 9 AM CDT 09/04/2024 5:39 AM CDT Milton Mclean MD LAB BLOOD ORDERABLES Final Result [place] [address] Department [place] [address] * Type and screen (09/04/2024 5:29 AM CDT) ABO Rh O Positive Janell, indirect Negative [facility] Blood 09/04/2024 5:29 AM CDT 09/04/2024 5:39 AM CDT Narrative [facility] - 09/04/2024 6:16 AM CDT Has the patient had Daratumumab or Isatuximab in the past 6 months?->Unknown Wiley Hernandez MD LAB BLOOD BANK TEST ORDERABLES Final Result [facility] [address] [place] [address] * Phosphorus (09/04/2024 5:29 AM CDT) Phosphorus, pl 3.3 2.3 - 4.5 mg/dL Blood 09/04/2024 5:29 AM CDT 09/04/2024 5:39 AM CDT Jose Enriquez MD LAB BLOOD ORDERABLES Final Re sult Performing Organization Address City/[facility]/ZIP Co de Phone Number [facility] [address] Department [place] [address] * Bilirubin, direct (09/04/2024 5:29 AM CDT) Pathologist [facility] Bilirubin, direct 0.2 0.1 - 0.3 mg/dL Blood 09/04/2024 5:29 AM CDT 09/04/2024 5:39 AM CDT Jose Enriquez MD LAB BLOOD ORDERABLES Final Re sult Performing Organization Address [facility] Co de Phone Number [facility] [address] Department [place] [address] * (ABNORMAL) Comprehensive metabolic panel (09/04/2024 5:29 AM CDT) [facility] Sodium 139 135 - 145 mmol/L Potassium, pl 3.3 3.3 - 4.9 mmol/L [facility] Chloride 106 97 - 110 mmol/L [facility] CO2 22 22 - 32 mmol/L [facility] Anion gap 11 2 - 15 mmol/L [facility] BUN 11 6 - 25 mg/dL [facility] Creatinine 0.81 0.80 - 1.30 mg/dL [facility] Glucose 115 70 - 199 mg/dL [facility] Comment: Interpretive Data Fasting glucose >/= 126 mg/dl is diagnostic for diabetes. ?? Fasting is defined as no caloric intake for at least 8 hours. Fasting glucose between 100 mg/dl to 125 mg/dl is diagnostic of prediabetes. In a patient with classic symptoms of hyperglycemia or hyperglycemic crisis, a random glucose >/= 200 mg/dl is diagnostic for diabetes. In the absence of unequivocal hyperglycemia, results should be confirmed by repeat testing. The classification and Diagnosis of Diabetes Diabetes Care 2021; 46: S19-S40. Current interpretive data was last revised 2022. Calcium 8.0(L) 8.5 - 10.3 mg/dL [facility] Bilirubin, total 0.4 0.1 - 1.2 mg/dL [facility] Protein, pl 6.1(L) 6.5 - 8.5 g/dL [facility] Albumin 2.8(L) 3.5 - 5.0 g/dL [facility] Alk phos 176(H) 40 - 130 Units/L [facility] ALT 23 7 - 55 Units/L [facility] AST 45 10 - 50 Units/L [facility] Blood 09/04/2024 5:29 AM CDT 09/04/2024 5:39 AM CDT Jose Enriquez MD LAB BLOOD ORDERABLES Final Re sult Performing Organization Address [facility] Co de Phone Number [facility] [address] [place] [address] * POCT glucose (09/04/2024 4:37 AM CDT) Glucose, POC 129 70 - 199 mg/dL Comment: For Glucose values <35 mg/dl when Hematocrit is >60 mg/dl,the test may not accurately detect significant hypoglycemia,and testing in the Laboratory should be considered if clinically indicated. Blood 09/04/2024 4:37 AM CDT 09/04/2024 4:37 AM CDT Deanna Bangura MD LAB POCT ORDERABLES - DEVICE F inal Result Performing Organization Address [facility]/ZIP Co de Phone Number [facility] [address] Department [place] [address] * POCT glucose (09/04/2024 12:01 AM CDT) Glucose, POC 169 70 - 199 mg/dL Comment: For Glucose values <35 mg/dl when Hematocrit is >60 mg/dl,the test may not accurately detect significant hypoglycemia,and testing in the Laboratory should be considered if clinically indicated. Blood 09/04/2024 12:0 1 AM CDT 09/04/2024 12:01 AM CDT us Deanna Bangura MD LAB POCT ORDERABLES - DEVICE F inal Result Performing Organization Address [facility]/ZIP Co de Phone Number [facility] [address] [place] [address] * eGFR (09/03/2024 6:33 AM CDT) eGFR >90 >=60 mL/min/1. 73 m2 Comment: Interpretive Data Reference Interval Normal ?>/= 90 mL/min/1.73m2 Mildly decreased* ? 60 - 89 mL/min/1.73m2 Mildly to moderately decreased ?45 - 59 mL/min/1.73m2 Moderately to severely decreased ??30 - 44 mL/min/1.73m2 Severely decreased ?15 - 29 mL/min/1.73m2 Kidney Failure ?< 15 ??mL/min/1.73m2 *Relative to young adult level Estimated glomerular filtration rate is determined by the 2020 CKD-EPI equation recommended by the National Kidney Foundation (A Unifying Approach to GFR Estimation: Recommendations of the NKF-ASK Task Force on Reassessing the Inclusion of Race in Diagnosing Kidney Disease, JASN 2020). The CKD-EPI equation should not be used for patients with unstable renal function and has not been validated in children and those over 70. Current interpretive data was last reviewed 2021. Blood 09/03/2024 6:33 AM CDT 09/03/2024 7:32 AM CDT us Kyrie Tucker MD LAB BLOOD ORDERABLES Final Re sult Performing Organization Address [facility]/ZIP Co de Phone Number [facility] [address] [place], [place] [phone] * Differential, auto (09/03/2024 6:33 AM CDT) Pathologist [facility] Neutrophil abs 3.3 1.5 - 6.5 K/cumm Imm gran abs 0.1 0.0 - 0.1 K/cumm [facility] Lymphocyte abs 1.0 0.8 - 3.3 K/cumm [facility] Monocyte abs 0.6 0.2 - 0.8 K/cumm [facility] Eosinophil abs 0.3 0.0 - 0.5 K/cumm [facility] Basophil abs 0.1 0.0 - 0.1 K/cumm [facility] Neutrophil pct 63.1 % [facility] Comment: Interpretive Data Percent cell count reference ranges are not reported, since discordance with absolute values may lead to misinterpretation of CBC data. Current Interpretive Data was last revised on 2018. Imm gran pct 1.0 % [facility] Comment: Interpretive Data Percent cell count reference ranges are not reported, since discordance with absolute values may lead to misinterpretation of CBC data. Current Interpretive Data was last revised on 2018. Lymphocyte pct 18.3 % [facility] Comment: Interpretive Data Percent cell count reference ranges are not reported, since discordance with absolute values may lead to misinterpretation of CBC data. Current Interpretive Data was last revised on 2018. Monocyte pct 11.6 % [facility] Comment: Interpretive Data Percent cell count reference ranges are not reported, since discordance with absolute values may lead to misinterpretation of CBC data. Current Interpretive Data was last revised on 2018. Eosinophil pct 4.8 % [facility] Comment: Interpretive Data Percent cell count reference ranges are not reported, since discordance with absolute values may lead to misinterpretation of CBC data. Current Interpretive Data was last revised on 2018. Basophil pct 1.2 % [facility] Comment: Interpretive Data Percent cell count reference ranges are not reported, since discordance with absolute values may lead to misinterpretation of CBC data. Current Interpretive Data was last revised on 2018. Blood 09/03/2024 6:33 AM CDT 09/03/2024 7:32 AM CDT Jose Enriquez MD LAB BLOOD ORDERABLES Final Re sult Performing Organization Address City/[facility]/ZIP Co de Phone Number [facility] [address] Department [place] [address] * Check Sample (09/03/2024 6:33 AM CDT) Pathologist [facility] ABO Rh O Positive MBC HCLL OTHER 09/03/2024 6:33 AM CDT 09/03/2024 8:44 PM CDT Deanna Bangura MD LAB BLOOD ORDERABLES Final Res ult Performing Organization Address [facility] de Phone Number [facility] [address] [place] [address] MBC * (ABNORMAL) CBC with auto differential (09/03/2024 6:33 AM CDT) [facility] WBC 5.2 3.8 - 9.9 K/cumm Hgb 8.2(L) 13.0 - 17.5 g/dL [facility] Hct 28.6(L) 38.9 - 50.3 % [facility] Plt 173 150 - 400 K/cumm [facility] MPV 9.6 9.1 - 12.3 fL [facility] RBC 3.51(L) 4.30 - 5.80 M/cumm [facility] MCV 81.5 81.3 - 96.4 fL [facility] MCH 23.4(L) 27.1 - 33.3 pg [facility] MCHC 28.7(L) 32.3 - 35.7 g/dL [facility] RDW CV 16.8(H) 11.1 - 14.9 % [facility] RDW SD 49.4(H) 35.7 - 48.1 fL [facility] NRBC abs 0.00 0.00 - 0.01 K/cumm [facility] Blood 09/03/2024 6:33 AM CDT 09/03/2024 7:32 AM CDT Milton Mclean MD LAB BLOOD ORDERABLES Final Result Performing Organization Address [facility] Co de Phone Number [facility] [address] [place] [address] * Phosphorus (09/03/2024 6:33 AM CDT) Pathologist [facility] Phosphorus, pl 2.8 2.3 - 4.5 mg/dL Blood 09/03/2024 6:33 AM CDT 09/03/2024 7:32 AM CDT us Kyrei Tucker MD LAB BLOOD ORDERABLES Final Re sult Performing Organization Address [facility] Co de Phone Number [facility] [address] [place] [address] * Bilirubin, direct (09/03/2024 6:33 AM CDT) [facility] Bilirubin, direct 0.3 0.1 - 0.3 mg/dL Blood 09/03/2024 6:33 AM CDT 09/03/2024 7:32 AM CDT Kyrie Tucker MD LAB BLOOD ORDERABLES Final Re sult Performing Organization Address [facility] Co de Phone Number [facility] [address] [place] [address] * (ABNORMAL) Comprehensive metabolic panel (09/03/2024 6:33 AM CDT) Pathologist [facility] Sodium 139 135 - 145 mmol/L Potassium, pl 3.5 3.3 - 4.9 mmol/L [facility] Chloride 107 97 - 110 mmol/L [facility] CO2 21(L) 22 - 32 mmol/L [facility] Anion gap 11 2 - 15 mmol/L [facility] BUN 13 6 - 25 mg/dL [facility] Creatinine 0.77(L) 0.80 - 1.30 mg/dL [facility] Glucose 92 70 - 199 mg/dL [facility] Comment: Interpretive Data Fasting glucose >/= 126 mg/dl is diagnostic for diabetes. ?? Fasting is defined as no caloric intake for at least 8 hours. Fasting glucose between 100 mg/dl to 125 mg/dl is diagnostic of prediabetes. In a patient with classic symptoms of hyperglycemia or hyperglycemic crisis, a random glucose >/= 200 mg/dl is diagnostic for diabetes. In the absence of unequivocal hyperglycemia, results should be confirmed by repeat testing. The classification and Diagnosis of Diabetes Diabetes Care 202; 46: S19-S40. Current interpretive data was last revised 2022. Calcium 7.9(L) 8.5 - 10.3 mg/dL [facility] Bilirubin, total 0.6 0.1 - 1.2 mg/dL [facility] Protein, pl 6.0(L) 6.5 - 8.5 g/dL [facility] Albumin 2.4(L) 3.5 - 5.0 g/dL [facility] Alk phos 149(H) 40 - 130 Units/L [facility] ALT 23 7 - 55 Units/L [facility] AST 43 10 - 50 Units/L [facility] Blood 09/03/2024 6:33 AM CDT 09/03/2024 7:32 AM CDT us Kyrie Tucker MD LAB BLOOD ORDERABLES Final Re sult [facility] [address] [place] [address] * US RUQ (09/02/2024 5:26 PM CDT) Anatomical Region Laterality Modality Abdomen N/A Ultrasound 09/03/2024 7:30 AM CDT Impressions 09/03/2024 7:30 AM CDT 1. Gallbladder sludge with nonspecific wall thickening. ??No pericholecystic fluid or sonographic Rothman sign. ??Normal appearance of the biliary system. 2. Cirrhotic liver with perihepatic ascites. ??Patent portal vein with appropriate directional flow. Electronically signed by: Jeremy Edwards M.D. Narrative 09/03/2024 7:30 AM CDT EXAMINATION: ??LIMITED ABDOMINAL SONOGRAM HISTORY: ??Right upper quadrant pain. COMPARISON: ??No relevant prior imaging available for comparison. FINDINGS: ?? Liver: Nodular contour of the liver with coarsened echogenicity. Small amount of perihepatic ascites. No focal solid lesions are visualized. ??No intrahepatic biliary ductal dilation. ??Portal vein demonstrates normal hepatopetal flow. ?? Gallbladder: The gallbladder demonstrates mild variable wall thickening with intraluminal sludge. ??Negative sonographic Rothman sign. ??Common bile duct is normal in size measuring 3 mm. Right Kidney: Right kidney is not visualized on the provided images. Pancreas: The pancreas is obscured by overlying bowel gas. Procedure Note Jeremy Edwards MD - 09/03/2024 EXAMINATION: LIMITED ABDOMINAL SONOGRAM HISTORY: Right upper quadrant pain. COMPARISON: No relevant prior imaging available for comparison. FINDINGS: Liver: Nodular contour of the liver with coarsened echogenicity. Small amount of perihepatic ascites. No focal solid lesions are visualized. No intrahepatic biliary ductal dilation. Portal vein demonstrates normal hepatopetal flow. Gallbladder: The gallbladder demonstrates mild variable wall thickening with intraluminal sludge. Negative sonographic Rothman sign. Common bile duct is normal in size measuring 3 mm. Right Kidney: Right kidney is not visualized on the provided images. Pancreas: The pancreas is obscured by overlying bowel gas. IMPRESSION: 1. Gallbladder sludge with nonspecific wall thickening. No pericholecystic fluid or sonographic Rothman sign. Normal appearance of the biliary system. 2. Cirrhotic liver with perihepatic ascites. Patent portal vein with appropriate directional flow. Electronically signed by: Jeremy Edwards M.D. Diana [facility] US PROCEDURES Tiffany l Result * (ABNORMAL) Troponin T high-sensitivity 6-hour (09/02/2024 4:20 PM CDT) Trop T hs 72(H) <=22 ng/L Comment: Interpretive Data For further hscTnT resources including the diagnostic algorithm and an aid in interpretation, copy and paste this link: https://nrl.[email or web address]/show/hsTrop Current Interpretive Data last revised 2020. Trop T hs delta 3 ng/L [facility] Trop T hs interp Insignificant [facility] Blood 09/02/2024 4:20 PM CDT 09/02/2024 4:29 PM CDT Kyrie Tucker MD LAB BLOOD ORDERABLES Final Re sult Performing Organization Address [facility] de Phone Number [facility] [address] Department of [employer] [place], [place] [id number] * (ABNORMAL) Troponin T high-sensitivity 4-hour (09/02/2024 2:29 PM CDT) Trop T hs 71(H) <=22 ng/L Comment: Interpretive Data For further hscTnT resources including the diagnostic algorithm and an aid in interpretation, copy and paste this link: https://nrl.[email or web address]/show/hsTrop Current Interpretive Data last revised 2020. Trop T hs delta 2 ng/L [facility] Trop T hs interp Insignificant [facility] Blood 09/02/2024 2:29 PM CDT 09/02/2024 2:29 PM CDT Kyrie Tucker MD LAB BLOOD ORDERABLES Final Re sult Performing Organization Address [facility] Co de Phone Number [facility] [address] [place] [address] * (ABNORMAL) Troponin T high-sensitivity 2-hour (09/02/2024 11:08 AM CDT) Trop T hs 70(H) <=22 ng/L Comment: Interpretive Data For further hscTnT resources including the diagnostic algorithm and an aid in interpretation, copy and paste this link: https://nrl.[email or web address]/show/hsTrop Current Interpretive Data last revised 2020. Trop T hs delta See Comment ng/L [facility] Comment:Inappropriate collec tion time to report a delta. Trop T hs pct delta See Comment % [facility] Comment:Inappropriate collec tion time to report a delta. Trop T hs interp See Comment [facility] Comment:Inappropriate collec tion time to report a delta. Blood 09/02/2024 11:0 8 AM CDT 09/02/2024 11:19 AM CDT Kyrie Tucker MD LAB BLOOD ORDERABLES Final Re sult Performing Organization Address [facility] Co de Phone Number [facility] [address] [place] [address] * Blood culture Blood (09/02/2024 11:08 AM CDT) Report Final Report: No growth Blood 09/02/2024 11:0 8 AM CDT 09/02/2024 11:16 AM CDT Narrative [facility] - 09/07/2024 1:00 PM CDT From a different site than #1. Collection->Peripheral Interpretive Data 1. Blood cultures are incubated and monitored continuously for 5 days (120 hours). The first negative report is issued within 24 hours of receipt in the laboratory. 2. All positive cultures are resulted and called to physicians/care providers as soon as they are detected. 3. A rapid molecular test for organism identification may be performed using the Live[employer] Blood Culture Identification panel. This assay detects microbial DNA in a blood culture broth. This assay has been cleared by the [place] Food and Drug Administration and its performance characteristics have been verified by the [facility] Microbiology Laboratory. Interpretive data was last revised on December 10, 2022. Kyrie Tucker MD LAB MICROBIOLOGY - GENERAL OR DERABLES Final Result Performing Organization Address [facility]/ZIP Co de Phone Number [facility] [address] [place] [address] * (ABNORMAL) Troponin T high-sensitivity series (baseline, 2hr, 4hr, 6hr) (09/02/2024 9:38 AM CDT) Trop T hs 69(H) <=22 ng/L Comment: Interpretive Data For further hscTnT resources including the diagnostic algorithm and an aid in interpretation, copy and paste this link: https://nrl.[employer].org/show/hsTrop Current Interpretive Data last revised 2020. Blood 09/02/2024 9:38 AM CDT 09/02/2024 10:27 AM CDT Kyrie Tucker MD LAB BLOOD ORDERABLES Final Re sult Performing Organization Address City/[facility]/ZIP Co de Phone Number [facility] [address] [employer] [place], [place] [phone] * Sepsis Lactate w/ Reflex (09/02/2024 9:38 AM CDT) Pathologist [facility] Sepsis Lactate 1.3 0.7 - 2.0 mmol/L Blood 09/02/2024 9:38 AM CDT 09/02/2024 10:23 AM CDT Kyrie Tucker MD LAB BLOOD ORDERABLES Final Re sult Performing Organization Address City/[facility]/ZIP Co de Phone Number [facility] [address] [facility] [employer] [place], [place] [phone] * Blood culture Blood (09/02/2024 9:38 AM CDT) Report Final Report: No growth Blood 09/02/2024 9:38 AM CDT 09/02/2024 10:22 AM CDT Narrative [facility] - 09/07/2024 1:00 PM CDT Collection->Peripheral Interpretive Data 1. Blood cultures are incubated and monitored continuously for 5 days (120 hours). The first negative report is issued within 24 hours of receipt in the laboratory. 2. All positive cultures are resulted and called to physicians/care providers as soon as they are detected. 3. A rapid molecular test for organism identification may be performed using the LiveIntent Blood Culture Identification panel. This assay detects microbial DNA in a blood culture broth. This assay has been cleared by the [place] Food and Drug Administration and its performance characteristics have been verified by the [facility] Microbiology Laboratory. Interpretive data was last revised on December 10, 2022. Kyrie Tucker MD LAB MICROBIOLOGY - GENERAL OR DERABLES Final Result Performing Organization Address [facility] Co de Phone Number [facility] [address] [place] [address] * Phosphorus (09/02/2024 9:38 AM CDT) Phosphorus, pl 2.5 2.3 - 4.5 mg/dL Blood 09/02/2024 9:38 AM CDT 09/02/2024 10:27 AM CDT Kyrie Tucker MD LAB BLOOD ORDERABLES Final Re sult Performing Organization Address [facility] de Phone Number [facility] [address] [place] [address] * Magnesium (09/02/2024 9:38 AM CDT) Magnesium 1.9 1.4 - 2.5 mg/dL Blood 09/02/2024 9:38 AM CDT 09/02/2024 10:27 AM CDT Kyrie Tucker MD LAB BLOOD ORDERABLES Final Re sult Performing Organization Address [facility] Co de Phone Number [facility] [address] Department of [employer] [place], [place] [phone] * ECG 12 lead (09/02/2024 8:21 AM CDT) 09/02/2024 8:21 AM CDT Narrative [facility] - 09/02/2024 2:31 PM CDT Vent Rate: 92 bpm RR Interval: 650 msec SC Interval: 154 msec QRS Duration: 151 msec QT Interval: 406 msec QTC Interval: 456 msec P-R-T [place]: 37 - 267 - 106 degrees IMPRESSION: ELECTRONIC VENTRICULAR PACEMAKER ABNORMAL RHYTHM ECG NO PRIOR TRACING Electronically Signed By: Mynor Arnett MD [facility] Kyrie Tucker MD ECG ORDERABLES Final Result [facility] * eGFR (09/02/2024 6:11 AM CDT) eGFR >90 >=60 mL/min/1. 73 m2 Comment: Interpretive Data Reference Interval Normal ?>/= 90 mL/min/1.73m2 Mildly decreased* ? 60 - 89 mL/min/1.73m2 Mildly to moderately decreased ?45 - 59 mL/min/1.73m2 Moderately to severely decreased ??30 - 44 mL/min/1.73m2 Severely decreased ?15 - 29 mL/min/1.73m2 Kidney Failure ?< 15 ??mL/min/1.73m2 *Relative to young adult level Estimated glomerular filtration rate is determined by the 2020 CKD-EPI equation recommended by the National Kidney Foundation (A Unifying Approach to GFR Estimation: Recommendations of the NKF-ASK Task Force on Reassessing the Inclusion of Race in Diagnosing Kidney Disease, JASN 202). The CKD-EPI equation should not be used for patients with unstable renal function and has not been validated in children and those over 70. Current interpretive data was last reviewed 2021. Blood 09/02/2024 6:11 AM CDT 09/02/2024 6:51 AM CDT us Jose Enriquez MD LAB BLOOD ORDERABLES Final Re sult [facility] [address] [place] [address] * Differential, auto (09/02/2024 6:11 AM CDT) Neutrophil abs 4.1 1.5 - 6.5 K/cumm Imm gran abs 0.1 0.0 - 0.1 K/cumm [facility] Lymphocyte abs 0.9 0.8 - 3.3 K/cumm [facility] Monocyte abs 0.5 0.2 - 0.8 K/cumm [facility] Eosinophil abs 0.3 0.0 - 0.5 K/cumm [facility] Basophil abs 0.1 0.0 - 0.1 K/cumm [facility] Neutrophil pct 70.0 % [facility] Comment: Interpretive Data Percent cell count reference ranges are not reported, since discordance with absolute values may lead to misinterpretation of CBC data. Current Interpretive Data was last revised on 2018. Imm gran pct 0.9 % [facility] Comment: Interpretive Data Percent cell count reference ranges are not reported, since discordance with absolute values may lead to misinterpretation of CBC data. Current Interpretive Data was last revised on 2018. Lymphocyte pct 15.2 % [facility] Comment: Interpretive Data Percent cell count reference ranges are not reported, since discordance with absolute values may lead to misinterpretation of CBC data. Current Interpretive Data was last revised on 2018. Monocyte pct 8.3 % [facility] Comment: Interpretive Data Percent cell count reference ranges are not reported, since discordance with absolute values may lead to misinterpretation of CBC data. Current Interpretive Data was last revised on 2018. Eosinophil pct 4.7 % [facility] Comment: Interpretive Data Percent cell count reference ranges are not reported, since discordance with absolute values may lead to misinterpretation of CBC data. Current Interpretive Data was last revised on 2018. Basophil pct 0.9 % [facility] Comment: Interpretive Data Percent cell count reference ranges are not reported, since discordance with absolute values may lead to misinterpretation of CBC data. Current Interpretive Data was last revised on 2018. Blood 09/02/2024 6:11 AM CDT 09/02/2024 6:52 AM CDT Jose Enriquez MD LAB BLOOD ORDERABLES Final Re sult Performing Organization Address City/[facility]/ZIP Co de Phone Number [facility] [address] [place] [address] * (ABNORMAL) CBC with auto differential (09/02/2024 6:11 AM CDT) WBC 5.8 3.8 - 9.9 K/cumm Hgb 7.9(L) 13.0 - 17.5 g/dL [facility] Hct 27.3(L) 38.9 - 50.3 % [facility] Plt 186 150 - 400 K/cumm [facility] MPV 9.8 9.1 - 12.3 fL [facility] RBC 3.35(L) 4.30 - 5.80 M/cumm [facility] MCV 81.5 81.3 - 96.4 fL [facility] MCH 23.6(L) 27.1 - 33.3 pg [facility] MCHC 28.9(L) 32.3 - 35.7 g/dL [facility] RDW CV 16.8(H) 11.1 - 14.9 % [facility] RDW SD 49.3(H) 35.7 - 48.1 fL [facility] NRBC abs 0.00 0.00 - 0.01 K/cumm [facility] Blood 09/02/2024 6:11 AM CDT 09/02/2024 6:52 AM CDT Milton Mclean MD LAB BLOOD ORDERABLES Final Result [facility] [address] [place] [address] * Phosphorus (09/02/2024 6:11 AM CDT) Pathologist [facility] Phosphorus, pl 2.3 2.3 - 4.5 mg/dL Blood 09/02/2024 6:11 AM CDT 09/02/2024 6:51 AM CDT Jose Enriquez MD LAB BLOOD ORDERABLES Final Re sult Performing Organization Address City/[facility]/ZIP Co de Phone Number [facility] [address] [place] [address] * (ABNORMAL) Bilirubin, direct (09/02/2024 6:11 AM CDT) [facility] Bilirubin, direct 0.4(H) 0.1 - 0.3 mg/dL Blood 09/02/2024 6:11 AM CDT 09/02/2024 6:51 AM CDT Jose Enriquez MD LAB BLOOD ORDERABLES Final Re sult Performing Organization Address City/[facility]/ZIP Co de Phone Number [facility] [address] [place] [address] * (ABNORMAL) Comprehensive metabolic panel (09/02/2024 6:11 AM CDT) [facility] Sodium 140 135 - 145 mmol/L Potassium, pl 3.5 3.3 - 4.9 mmol/L [facility] Chloride 106 97 - 110 mmol/L [facility] CO2 21(L) 22 - 32 mmol/L [facility] Anion gap 13 2 - 15 mmol/L [facility] BUN 14 6 - 25 mg/dL [facility] Creatinine 0.74(L) 0.80 - 1.30 mg/dL [facility] Glucose 100 70 - 199 mg/dL [facility] Comment: Interpretive Data Fasting glucose >/= 126 mg/dl is diagnostic for diabetes. ?? Fasting is defined as no caloric intake for at least 8 hours. Fasting glucose between 100 mg/dl to 125 mg/dl is diagnostic of prediabetes. In a patient with classic symptoms of hyperglycemia or hyperglycemic crisis, a random glucose >/= 200 mg/dl is diagnostic for diabetes. In the absence of unequivocal hyperglycemia, results should be confirmed by repeat testing. The classification and Diagnosis of Diabetes Diabetes Care 202; 46: S19-S40. Current interpretive data was last revised 2022. Calcium 7.7(L) 8.5 - 10.3 mg/dL [facility] Bilirubin, total 0.7 0.1 - 1.2 mg/dL [facility] Protein, pl 6.1(L) 6.5 - 8.5 g/dL [facility] Albumin 2.7(L) 3.5 - 5.0 g/dL [facility] Alk phos 146(H) 40 - 130 Units/L [facility] ALT 23 7 - 55 Units/L [facility] AST 38 10 - 50 Units/L [facility] Blood 09/02/2024 6:11 AM CDT 09/02/2024 6:51 AM CDT us Jose Enriquez MD LAB BLOOD ORDERABLES Final Re sult [facility] [address] [place] [address] * eGFR (09/01/2024 9:13 PM CDT) eGFR >90 >=60 mL/min/1. 73 m2 Comment: Interpretive Data Reference Interval Normal ?>/= 90 mL/min/1.73m2 Mildly decreased* ? 60 - 89 mL/min/1.73m2 Mildly to moderately decreased ?45 - 59 mL/min/1.73m2 Moderately to severely decreased ??30 - 44 mL/min/1.73m2 Severely decreased ?15 - 29 mL/min/1.73m2 Kidney Failure ?< 15 ??mL/min/1.73m2 *Relative to young adult level Estimated glomerular filtration rate is determined by the 2020 CKD-EPI equation recommended by the National Kidney Foundation (A Unifying Approach to GFR Estimation: Recommendations of the NKF-ASK Task Force on Reassessing the Inclusion of Race in Diagnosing Kidney Disease, JASN 2020). The CKD-EPI equation should not be used for patients with unstable renal function and has not been validated in children and those over 70. Current interpretive data was last reviewed 2021. Blood 09/01/2024 9:13 PM CDT 09/01/2024 9:29 PM CDT us Jose Enriquez MD LAB BLOOD ORDERABLES Final Re sult Performing Organization Address City/[facility]/ZIP Co de Phone Number [facility] [address] [place] [address] * (ABNORMAL) Phosphorus (09/01/2024 9:13 PM CDT) Phosphorus, pl 2.0(L) 2.3 - 4.5 mg/dL Blood 09/01/2024 9:13 PM CDT 09/01/2024 9:29 PM CDT us Jose Enriquez MD LAB BLOOD ORDERABLES Final Re sult Performing Organization Address City/[facility]/ZIP Co de Phone Number [facility] [address] Department of [employer] [place], [place] [phone] * (ABNORMAL) Bilirubin, direct (09/01/2024 9:13 PM CDT) Bilirubin, direct 0.5(H) 0.1 - 0.3 mg/dL Blood 09/01/2024 9:13 PM CDT 09/01/2024 9:29 PM CDT us Jose Enriquez MD LAB BLOOD ORDERABLES Final Re sult [facility] [address] [place] [address] * (ABNORMAL) Comprehensive metabolic panel (09/01/2024 9:13 PM CDT) Sodium 138 135 - 145 mmol/L Potassium, pl 3.5 3.3 - 4.9 mmol/L [facility] Chloride 105 97 - 110 mmol/L [facility] CO2 22 22 - 32 mmol/L [facility] Anion gap 11 2 - 15 mmol/L [facility] BUN 14 6 - 25 mg/dL [facility] Creatinine 0.76(L) 0.80 - 1.30 mg/dL [facility] Glucose 110 70 - 199 mg/dL [facility] Comment: Interpretive Data Fasting glucose >/= 126 mg/dl is diagnostic for diabetes. ?? Fasting is defined as no caloric intake for at least 8 hours. Fasting glucose between 100 mg/dl to 125 mg/dl is diagnostic of prediabetes. In a patient with classic symptoms of hyperglycemia or hyperglycemic crisis, a random glucose >/= 200 mg/dl is diagnostic for diabetes. In the absence of unequivocal hyperglycemia, results should be confirmed by repeat testing. The classification and Diagnosis of Diabetes Diabetes Care 202; 46: S19-S40. Current interpretive data was last revised 2022. Calcium 8.1(L) 8.5 - 10.3 mg/dL [facility] Bilirubin, total 0.8 0.1 - 1.2 mg/dL [facility] Protein, pl 6.6 6.5 - 8.5 g/dL [facility] Albumin 3.1(L) 3.5 - 5.0 g/dL [facility] Alk phos 148(H) 40 - 130 Units/L [facility] ALT 26 7 - 55 Units/L [facility] AST 40 10 - 50 Units/L [facility] Blood 09/01/2024 9:13 PM CDT 09/01/2024 9:29 PM CDT Jose Enriquez MD LAB BLOOD ORDERABLES Final Re sult [facility] [address] Department [place] [address] * (ABNORMAL) Lipid panel (07/24/2024 4:21 PM CDT) Cholesterol 101 30 - 199 mg/dL Comment: Interpretive Data Ages < or = 19 years ??Acceptable: ? <170 mg/dL ??Borderline high: ??170-199 mg/dL ??High: ? >or= 200 mg/dL Ages > or = 20 years ??Desirable: ?<200 mg/dL ??Borderline high: ??200-239 mg/dL ??High: ? >or= 240 mg/dL Literature References: 1. Expert Panel on Integrated Guidelines for Cardiovascular Health and Risk Reduction in Children and Adolescents. Pediatrics 2011;128:S213 2. NCEP Expert Panel. Circulation 2004;110:227 Current Interpretive Data was last revised on 2018. Triglycerides 100 <=149 mg/dL [facility] Comment: Interpretive Data Ages < or = 9 years ??Acceptable: ? <75 mg/dL ??Borderline high: ??75-99 mg/dL ??High: ? >or= 100 mg/dL Ages 10 to 20 years ??Acceptable: ? <90 mg/dL ??Borderline high: ??90-129 mg/dL ??High: ? >or= 130 mg/dL Ages > or = 20 years ??Desirable: ?<150 mg/dL ??Borderline high: ??150-199 mg/dL ??High: ? 200-499 mg/dL ?Very high: ?? >or= 499 mg/dL Literature References: 1. Expert Panel on Integrated Guidelines for Cardiovascular Health and Risk Reduction in Children and Adolescents. Pediatrics 2011;128:S213 2. NCEP Expert Panel. Circulation 2004;110:227 Current Interpretive Data was last revised on 2018. HDL 26(L) >=40 mg/dL [facility] Comment: Interpretive Data Ages < or = 19 years ??Acceptable: ? >45 mg/dL ??Borderline low: ?? 40-45 mg/dL ??Low: ? <40 mg/dL Ages > or = 20 years ??Desirable: ?>or= 60 mg/dL ??Low: ? <40 mg/dL Literature References: 1. Expert Panel on Integrated Guidelines for Cardiovascular Health and Risk Reduction in Children and Adolescents. Pediatrics 2011;128:S213 2. NCEP Expert Panel. Circulation 2004;110:227 Current Interpretive Data was last revised on 2018. LDL, calculated 56 <=129 mg/dL [facility] [facility] Comment: Interpretive Data Ages < or = 19 years ??Acceptable: ? <110 mg/dL ??Borderline high: ??110-129 mg/dL ??High: ?>or= 130 mg/dL Ages > or = 20 years ??Optimal: ? <100 mg/dL ??Near optimal: ?100-129 mg/dL ??Borderline high: ?? 130-159 mg/dL ??High: ?>160 mg/dL Calculated using the Roderick LDL-C estimating equation. This equation was implemented on 2024. Prior to this date LDL-C was estimated using the Friedewald equation. Literature References: 1. Expert Panel on Integrated Guidelines for Cardiovascular Health and Risk Reduction in Children and Adolescents. Pediatrics 2011;128:S213 2. NCEP Expert Panel. Circulation 2004;110:227 3. Roderick Segura et al. ROSETTA Cardiol. 2020 March 08;5(5):540-548. doi: 10.1001/jamacardio.2020.0013 Current Interpretive Data was last revised on 2024. Non-HDL Cholesterol 75 mg/dL [facility] Comment: Interpretive Data Ages < or = 19 years ??Acceptable: ?<120 mg/dL ??Borderline high: ??120-144 mg/dL ??High: ?>145 mg/dL Ages > or = 20 years ??When triglycerides are >200 mg/dL, Non-HDL cholesterol is a secondary target of ? therapy with treatment goals that are 30 mg/dL greater than the LDL cholesterol target. ? Literature References: 1. Expert Panel on Integrated Guidelines for Cardiovascular Health and Risk Reduction in Children and Adolescents. Pediatrics 2011;128:S213 2. NCEP Expert Panel. Circulation 2004;110:227 Current Interpretive Data was last revised on 2018. Chol/HDL ratio 4 [facility] Blood 07/24/2024 4:21 PM CDT 07/24/2024 4:34 PM CDT Johnathan Mckee MD LAB BLOOD ORDERABLES Fi nal Result Performing Organization Address [facility] de Phone Number [facility] Department [place] [address] * (ABNORMAL) POCT hemoglobin A1c (07/14/2024 11:10 AM CDT) Hgb A1C, POC 7.5(H) 4.0 - 5.6 % Est Average Gluc POC 169 mg/dL [facility] Comment: The ADA recommends reporting an estimated Average Glucose (eAG) with all Hemoglobin A1c results using the equation derived from a study of 507 normal and diabetic adults. ??Minority populations were underrepresented and children were not included. ?? (Diabetes Care 31:7573-6249, 2008). ??The eAG is not equivalent to a fasting glucose. Blood 07/14/2024 11:1 0 AM CDT 07/14/2024 11:10 AM CDT Johnathan Mckee MD POINT OF CARE TEST ORDE RABLES Final Result Performing Organization Address [facility] de Phone Number 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 ADVANCE DIRECTIVE 07/24/2024 6:30 AM Power of [place] Supervisor-Medical * Full Code (Latest Code Status on File) Date Activated Date Inactivated Comments 09/01/2024 6:42 PM 09/07/2024 7:11 PM * Full Code Date Activated Date Inactivated Comments 07/25/2024 3:20 AM 08/11/2024 5:02 PM Care Teams Compliance Engineer Relationship Specialty Start Date End Date Juan Retana MD [address] [facility] [address] [place] [address] PCP - General Internal Medicine 07/05/24 [facility], Alverto Gutierrez [address] [place] [address] Referring Physician Cardiology 07/05/24 Johnathan cMkee MD [address] [facility] [id number] [place] [address] Consulting Physician General Surgery 08/11/24 Praveen Garduno MD [address] [facility] [address] [place] [address] Consulting Physician General Surgery 09/07/24
--- OUTSIDE RECORDS SUMMARY | 2024-11-17 04:24 | XMS_ITS | Encounter Summary ---
Author Organization [facility] Address [address] [place] [address] Care Team Providers Care Production Grip Name Role Phone Unavailable Primary Care Provider Unavailabl e Reason for Visit * Reason Comments Rash Encounter Details Date Type Department Care Team (Late st Contact Info) Description 08/27/2020 3:20 PM CDT Office Visit [facility] AT [address] [address] Provider, Blanche Exp Nameevelia Scabies (Primary Dx) Social History Tobacco Use Types Packs/Day Years [...] PM CDT documented as of this encounter Last Filed Vital Signs Vital Sign Reading [...] Mass Index 33.86 08/27/2020 12:39 PM CDT documented in this encounter Patient Instructions * Patient Instructions* Clarice Jimenez, INTERMEDIATE SCHOOL TEACHER-PATHOLOGIST - 08/27/2020 12:45 PM CDT Help relieve itching: Your skin may continue to itch for 2 or 3 weeks, even after the scabies mitesare gone. Gjxj-pln-chqgoan antihistamines or cortisone cream may help relieve itching. Trim your fingernails so you do not spread any mites that are still alive after treatment. Do not scratch your skin. Scratches may cause a skin infection. A cool bath may also help relieve the itching. Prevent the spread of scabies: Have all family members use scabies medicine. Tell all sex partners and anyone who has shared your clothing or bed for the past month about the scabies. Tell them to ask their healthcare provider forscabies medicine even if they have no itching, rash, or dionna lemon. Wash all items that you have used since 3 days before you learned about your scabies. Use hot waterto wash all clothing, bedding, and towels. Dry them for at least 20 minutes on the hot cycle of a dryer. Take items to be dry cleaned that cannot be washed in a washing machine. Place any clothing orbedding that cannot be washed or dry cleaned in a closed plastic bag for 1 week. Do not have close body contact with anyone until the scabies mites are gone. Talk to your healthcare provider about how long you need to wait. Also ask about public places to avoid, such as the gym. Return to school or work: You may return to school or work 24 hours after using scabies medicine. Patient Education Scabies POLYMER MATERIALS CONSULTANT: Scabies is a skin condition that is caused by scabies mites. Scabies mites are tiny bugs that dionna, lay eggs, and live underneath the skin. Scabies is spread through close contact with a person whohas scabies. This includes having sex, sleeping in the same bed, or sharing towels or clothing. Scabies can spread quickly and must be treated as soon as it is found. Common signs and symptoms: You may not know you have scabies until a few weeks after mites are under your skin. Scabies mites are too small to be seen on your body. You may have any of the following: ?? Red, raised bumps on your skin ?? Bad itching that is usually worse at night ?? Dionna lemon (short wavy lines) between your fingers, or on your ankles, elbows, groin, armpits,or breasts Seek care immediately if: ?? You develop a fever and red, swollen, painful areas on your skin. Contact your healthcare provider if: ?? The bites become crusty or filled with pus. ?? You have worsening itching after scabies treatment. ?? You have new bite or dionna lemon after treatment. ?? You have questions or concerns about your condition or care. Treatment: Your healthcare provider may want to treat scabies even if signs of mites are not found.Several kinds of medicine may be used to treat scabies. The medicine may be a cream or pill. Alwaysfollow the directions for the scabies medicine you are told to use. ?? Your healthcare provider may tell you to rub a thin layer of the medicine onto your entire body from the neck down. ?? Leave the cream on for the amount of time that is required for the medicine you are using. This may be between 8 to 14 hours. ?? Take a bath or shower to wash all medicine from your skin after the scabies treatment is done. ?? Put on clean clothes after you have rinsed the medicine off. You may need another scabies treatment in about 7 to 10 days if you continue to have symptoms. Help relieve itching: Your skin may continue to itch for 2 or 3 weeks, even after the scabies mitesare gone. Uqcm-zmh-hwdkowl antihistamines or cortisone cream may help relieve itching. Trim your fingernails so you do not spread any mites that are still alive after treatment. Do not scratch your skin. Scratches may cause a skin infection. A cool bath may also help relieve the itching. Prevent the spread of scabies: ?? Have all family members use scabies medicine. Tell all sex partners and anyone who has shared your clothing or bed for the past month about the scabies. Tell them to ask their healthcare provider for scabies medicine even if they have no itching, rash, or dionna lemon. ?? Wash all items that you have used since 3 days before you learned about your scabies. Use hot water to wash all clothing, bedding, and towels. Dry them for at least 20 minutes on the hot cycle of a dryer. Take items to be dry cleaned that cannot be washed in a washing machine. Place any clothingor bedding that cannot be washed or dry cleaned in a closed plastic bag for 1 week. ?? Do not have close body contact with anyone until the scabies mites are gone. Talk to your healthcare provider about how long you need to wait. Also ask about public places to avoid, such as the gym. Return to school or work: You may return to school or work 24 hours after using scabies medicine. Follow up with your healthcare provider as directed: Write down your questions so you remember to ask them during your visits. ?? Copyright [employer] 2019 Information is for End User's use only and may not be sold, redistributed or otherwise used for commercial purposes. All illustrations and images included in CareNotes?? are the copyrighted property of [employer] or [employer] The above information is an medicaid service coordinator only. It is not intended as medical advice for individual conditions or treatments. Talk to your doctor, nurse or pharmacist before following any medical regimen to see if it is safe and effective for you. documented in this encounter Progress Notes * Clarice Jimenez APRN-CNP - 08/27/2020 12:30 PM CDT Images from the original note were not included. Abiel Fink is a 70 year old male who presents to clinic today for Chief Complaint Patient presents with ??? Rash He states his rash located on the neck, abdomen, flanks, upper arms, left lower arm, and back. Onset was 1 month ago. Rash appears erythematous and is moderately pruritic Patient was exposed to others with similar rash. Patient lives with son, who was dx with scabies yesterday. Patient denies denies new medications, vitamins, foods, change in household chemicals. OTC- none. Sick Contacts: No known sick contacts. Past Medical History: Diagnosis Date ??? Asthma ??? Diabetes ??? GERD (gastroesophageal reflux disease) ??? Hypercholesteremia ??? Hypertension ??? Kidney capsule rupture ??? Neuropathy ??? Pain No family history on file. Current Outpatient Medications Medication Sig Dispense Refill ??? albuterol HFA (PROVENTIL;VENTOLIN;PROAIR) 108 (90 Base) MCG/ACT inhaler Inhale 2 puffs by mouthevery 6 hours as needed ??? ATORVASTATIN CALCIUM PO ??? DULoxetine HCl (CYMBALTA PO) ??? Furosemide (LASIX PO) ??? Insulin Aspart (NOVOLOG SC) ??? Insulin Glargine (LANTUS SC) ??? LISINOPRIL PO ??? METFORMIN HCL PO ??? Omeprazole (PRILOSEC PO) ??? permethrin (ELIMITE) 5 % cream Apply to affected area once for 1 dose Treat for one day. Massage into skin from neck to feet, leave on overnight (8-14h), wash off in morning. Repeat in 7-10 days if needed. 60 g 1 ??? Pregabalin (LYRICA PO) No current facility-administered medications for this visit. Allergies Allergen Reactions ??? Tramadol Itching Social History Socioeconomic History ??? Marital status: Unknown Spouse name: Not on file ??? Number of children: Not on file ??? Years of education: Not on file ??? Highest education level: Not on file Occupational History ??? Not on file Social Needs ??? Financial resource strain: Not on file ??? Food insecurity Worry: Not on file Inability: Not on file ??? Transportation needs Medical: Not on file Non-medical: Not on file Tobacco Use ??? Smoking status: Former Smoker ??? Tobacco comment: quit smoking 40 plus years ago Substance and Sexual Activity ??? Alcohol use: Not on file ??? Drug use: Not on file ??? Sexual activity: Not on file Lifestyle ??? Physical activity Days per week: Not on file Minutes per session: Not on file ??? Stress: Not on file Relationships ??? Social connections Talks on phone: Not on file Gets together: Not on file Attends jain service: Not on file Active member of club or organization: Not on file Attends meetings of clubs or organizations: Not on file Relationship status: Not on file ??? Intimate partner violence Fear of current or ex partner: Not on file Emotionally abused: Not on file Physically abused: Not on file Forced sexual activity: Not on file Other Topics Concern ??? Not on file Social History Narrative ??? Not on file Review of Systems Constitutional: Negative for fevers, chills. Respiratory: Negative for shortness of breath, acute cough, wheezing Cardiovascular: Negative Skin: Positive for rash, itching Neurological: Negative Objective: BP 130/70 Pulse 68 Temp 98.1 ??F (36.7 ??C) Resp 18 Ht 1.778 m (5' 10 ) Wt 107 kg (236 lb) SpO2 95%BMI 33.86 kg/m2 Exam General appearance: alert, cooperative, no distress, oriented to person, place, and time, wellappearing Head: normocephalic, without trauma Lungs: breath sounds normal and symmetric; no rales or wheezes Heart: regular rhythm, normal S1 and S2, without murmurs, gallops or rubs Skin: erythematous, papular rash scattered to abdomen, neck, bilateral arms, left wrist, back, and bilateral legs. Some areas with excoriation. No drainage or streaking Neurologic: mental status normal alert Assessment: Encounter Diagnosis Name Primary? Scabies Yes Plan: Keep your rash clean and dry Try not to scratch or rub your rash- doing so puts you at risk for a secondary skin infection Reviewed education materials, patient instructions, and answered questions. Abiel Fink verbalized understanding and agrees with plan. Follow up with PCP if symptoms worsen or do not completely resolve. GO TO THE EMERGENCY DEPARTMENT WITH ANY DEVELOPMENT OF FEVER, REDNESS, SWELLING, STREAKS COMING FROM THE RASH, OR TENDERNESS AROUND THE RASH Treatment: Your healthcare provider may want to treat scabies even if signs of mites are not found.Several kinds of medicine may be used to treat scabies. The medicine may be a cream or pill. Alwaysfollow the directions for the scabies medicine you are told to use. Your healthcare provider may tell you to rub a thin layer of the medicine onto your entire body from the neck down. Leave the cream on for the amount of time that is required for the medicine you are using. This maybe between 8 to 14 hours. Take a bath or shower to wash all medicine from your skin after the scabies treatment is done. Put on clean clothes after you have rinsed the medicine off. You may need another scabies treatmentin about 7 to 10 days if you continue to have symptoms. Help relieve itching: Your skin may continue to itch for 2 or 3 weeks, even after the scabies mitesare gone. Rxtw-ech-ewbymog antihistamines or cortisone cream may help relieve itching. Trim your fingernails so you do not spread any mites that are still alive after treatment. Do not scratch your skin. Scratches may cause a skin infection. A cool bath may also help relieve the itching. Prevent the spread of scabies: Have all family members use scabies medicine. Tell all sex partners and anyone who has shared your clothing or bed for the past month about the scabies. Tell them to ask their healthcare provider forscabies medicine even if they have no itching, rash, or dionna lemon. Wash all items that you have used since 3 days before you learned about your scabies. Use hot waterto wash all clothing, bedding, and towels. Dry them for at least 20 minutes on the hot cycle of a dryer. Take items to be dry cleaned that cannot be washed in a washing machine. Place any clothing orbedding that cannot be washed or dry cleaned in a closed plastic bag for 1 week. Do not have close body contact with anyone until the scabies mites are gone. Talk to your healthcare provider about how long you need to wait. Also ask about public places to avoid, such as the gym. Return to school or work: You may return to school or work 24 hours after using scabies medicine. Orders Placed This Encounter ??? permethrin (ELIMITE) 5 % cream Sig: Apply to affected area once for 1 dose Treat for one day. Massage into skin from neck to feet,leave on overnight (8-14h), wash off in morning. Repeat in 7- 10 days if needed. Dispense: 60 g Refill: 1 Clarice Jimenez DNP, TOBACCO PRIZER-BC 08/27/2020 5:46 PM documented in this encounter Plan of Treatment Not on file documented as of this encounter Visit Diagnoses Diagnosis Scabies- Primary documented in this encounter
--- OUTSIDE RECORDS SUMMARY | 2024-11-17 04:24 | XMS_ITS | Clinical Summary ---
Author Organization [facility] Address [address] [place] [address]. [place], [place] [address] [place] [address] Care Team Providers Care Mud Mill Tender Name Role Phone Unavailable Primary Care Provider Unavailabl e Social History Tobacco Use Types Packs/Day Years Used Date Smoking Tobacco: Never Assessed Sex and Gender Information Value Date Recorded Sex Assigned at Not on file Legal Sex Male 5:43 PM CDT Gender Identity Not on file Sexual Orientation Not on file Plan of Treatment Health Maintenance Due Date Last Done Comments Colorectal Cancer Screening Colonoscopy (10 Years) 1952 Hepatitis C 1970 DTaP, Tdap and Td Vaccines ( 1 - Tdap) 1971 Zoster Vaccines (1 of 2) 2002 Pneumococcal Vaccine: 65+ Ye ars (1 of 1 - PCV) 2017 COVID-19 Vaccine ( - 2023-2 5 season) 2024 Influenza Adult (#1) 2024 RSV Immunization or 60+ Years (1 - 1-dose 75+ series) 2027 Meningococcal Vaccine Aged Out No jose f pushpa eligible based on patient's age to complete this topic RSV Immunizations Under 20 Months Aged Out No longer eligible based on patient's age to complete this topic
--- OUTSIDE RECORDS SUMMARY | 2024-11-17 04:24 | XMS_ITS | Encounter Summary ---
Author Organization [facility] Address [address] [place] [address] Care Team Providers Care Medicare Compliance Auditor Name Role Phone Unavailable Primary Care Provider Unavailabl e Encounter Details Date Type Department Care Team (Late st Contact Info) Description 02/03/2021 Orders Only [facility] - COVID Vax [address] [place] [address] Dennis Peterson MD [address] [facility] [address] [place] [address] Need for vaccination Social History Tobacco Use Types Packs/Day Years Used Date Smoking Tobacco: Former Comments:quit smoking 40 plu s years ago Sex and Gender Information Value Date Recorded Sex Assigned at Not on file Gender Identity Not on file Sexual Orientation Not on file documented as of this encounter Plan of Treatment Not on file documented as of this encounter Visit Diagnoses Diagnosis Need for vaccination Need for prophylactic vaccination and inoculation against unspecified single disease documented in this encounter
--- OUTSIDE RECORDS SUMMARY | 2024-11-17 04:24 | XMS_ITS | Referral Summary ---
Author Organization [facility] Address [address] [place] [address] Care Team Providers Care Shearer Screen Measurer And Trimmer Name Role Phone Unavailable Primary Care Provider Unavailabl e Source Comments [facility],non-owned Affiliates and Associated Physician Practices is amultiple site organization consisting of ambulatory clinics and hospital sitesin [place], [place], [place] and [place]. This disclosure is being madepursuant to the Care Everywhere program and may not contain all information available regarding this patient. Last updated 18.[facility] Allergies Active Allergy Reactions Criticality Noted Date Comments Tramadol Itching 08/27/2020 Medications * Be aware that medications may not be up to date on this document. Alwaysverify current medications with the patient. Medication Sig Dispensed Refills Start Date End Date Status albuterol HFA (PROVENTIL;VENTOLIN;GA OAIR) 108 (90 Base) MCG/ACT inhaler Inhale 2 puffs by mouth every 6 hours as needed Active METFORMIN HCL PO Active Insulin Glargine (LANTUS SC) Active Insulin Aspart (NOVOLOG SC) Active LISINOPRIL PO Active DULoxetine HCl (CYMBALTA PO) Active Omeprazole (PRILOSEC PO) Active Pregabalin (LYRICA PO) Ac tive Furosemide (LASIX PO) Act gs ATORVASTATIN CALCIUM PO Active Social History Tobacco [...] 08/27/2020 12:39 PM CDT Plan of Treatment Not on file
--- OUTSIDE RECORDS SUMMARY | 2024-11-17 04:24 | XMS_ITS | Encounter Summary ---
Author Name [facility] Address [address] [place] [address] Care Team Providers Care Pit Crew Support Worker Name Role Phone MANUEL THOMAS Primary Care [...] PART A Apr 08, 2017 PART A [id number] [phone] ASHLEY WALKER PATIENT Selected Encounter This section includes the information on record at NH for the Encounter. Date/Time Encounter Type Encounter Description Reason Provider Source Oct 24, 2024 06:45 PM Outpatient Encounter GENERAL INTERNAL MEDICINE MANUEL THOMAS [...] data comes from all [place] treatment facilities. Appointment Date/Time Appointment Type Appointme nt Facility Name Nov 20, 2024 10:30 AM AMBULATORY - SURGERY [facility] Nov 21, 2024 10:00 AM AMBULATORY - NONE [facility] LES[facility] Hirsch [facility] Dec 11, 2024 10:30 AM AMBULATORY - MEDICINE [facility] Social History: Smoking Status (Most current) [...] AM QUIT TOBACCO >7 YEARS AGO [facility] Tobacco Use History This section includes a history of the smoking, or tobacco-related health factors, that were collected on or before the date of the Encounter. The data comes from the [place] facility where the Encounter took place. Date/Time Smoking Status/Tobacco Use Comment F acility Sep 30, 2015 10:12 AM QUIT TOBACCO >7 YEARS AGO [facility] Oct 29, 2014 10:23 AM QUIT TOBACCO >7 YEARS AGO [facility] Dec 27, 2013 01:27 PM QUIT TOBACCO >7 YEARS AGO [facility] Feb 24, 2013 02:01 PM LIFETIME NON-USER OF TOBACCO [facility] Feb 11, 2009 10:09 AM QUIT TOBACCO >7 YEARS AGO [facility] Oct 06, 2006 09:30 AM CURRENT NON-TOBACC O USER-HX OF USE [facility] Oct 06, 2006 09:30 AM TOBACCO TERMINATION STAGE [facility] Advance Directives: All historical and current Section Date Range: From patient's date of to the date document was created. This section includes ALL of a patient's completed or amended [facility] Advance and Rescinded Directives. The entries below indicate that a directive exists for the patient, but an actual copy is not included with this document. The data comes from all [facility] facilities. Date Advance Directives Provider Source Jan 19, 2017 ADVANCE DIRECTIVE DISCUSSION ERICK BARDALES [facility] Encounter Notes: All associated encounter notes This section contains the clinical notes associated to the Encounter. Date/Time Encounter Note(s) Provider Source Oct 26, 2024 08:48 AM ADDENDUM: LOCAL TITLE: Addendum STANDARD TITLE: ADDENDUM DATE OF NOTE: OCT 26, 2024@08:48:20 ENTRY DATE: OCT 26, 2024@08:48:21 AUTHOR: YESSI JOHNSON EXP COSIGNER: URGENCY: STATUS: COMPLETED Records received. Patient had unwitnessed GLF on blood thinners. Cleared for acute issues and DC to SNF. Recommend f/u w/PCP. DC records sent securely to [facility]. Records r/t this episode of care received; sent to [facility] for scanning. /shen/ YESSI JOHNSON REGISTERED NURSE Signed: 10/26/2024 08:51 Receipt Acknowledged By: 10/27/2024 08:19 /es/ FARZANEH HARKINS MSN RN REGISTERED NURSE for CHARITY HALL 10/26/2024 15:35 /es/ manuel thomas M.D. Staff Physician ====== --- Original Document --- 10/22/24 [facility] PRESENTING CARE COORD PLAN [address]: Emergency Notification Intake Date Presenting to the Facility: Oct Method of Contact: Notified from [facility] worklist Notification ID: [id number] [facility] Referral #: [id number] Clinical Review [facility] Hospital Name: Hospital: [facility] Address: [address] [facility] City: [place] State: [place] Zip Code: [address] [facility] Facility Point of Contact: Name: Altagracia March Chief complaint: fall injury Primary Diagnosis: Disposition Unknown at time of intake note entry Faxed request for records to above hospital. /shen/ NEY JACINTO ADVANCED SUPERVISOR AIR CONDITIONING INSTALLER Signed: 10/24/2024 18:49 YESSI JOHNSON [facility] Oct 22, 2024 06:45 PM NONVA NOTE: LOCAL TITLE: COMMUNITY CARE-EYAL SELF PRESENTING CARE COORD PLAN STANDARD TITLE: NONVA NOTE DATE OF NOTE: OCT 22, 2024@18:45 ENTRY DATE: OCT 24, 2024@18:45:49 AUTHOR: NEY JACINTO COSIGNER: URGENCY: STATUS: COMPLETED COMMUNITY CARE-EYAL SELF PRESENTING CARE COORD PLAN [address] Has ADDENDA Emergency Notification Intake Date Presenting to the Facility: Oct Method of Contact: Notified from [facility] worklist Notification ID: [id number] [facility] Referral #: [id number] Clinical Review [facility] Name: Hospital: [facility] Address: [address] [place] [address] City: [place] State: [place] Zip Code: [address] [facility] Facility Point of Contact: Name: Altagracia Martinez Chief complaint: fall injury Primary Diagnosis: Disposition Unknown at time of intake note entry Faxed request for records to [facility]. /shenFebruary OPHELIA ADVANCED SUPERVISOR AIR CONDITIONING INSTALLER Signed: 10/24/2024 18:49 10/26/2024 ADDENDUM STATUS: COMPLETED Records received. Patient had unwitnessed GLF on blood thinners. Cleared for acute issues and DC to SNF. Recommend f/u w/PCP. DC records sent securely to [facility]. Records r/t this episode of care received; sent to [facility] for scanning. /shen/ YESSI JOHNSON REGISTERED NURSE Signed: 10/26/2024 08:51 Receipt Acknowledged By: * AWAITING SIGNATURE * CHARITY HALL * AWAITING SIGNATURE * MANUEL THOMAS APRIL [facility]
--- OUTSIDE RECORDS SUMMARY | 2024-11-17 04:24 | XMS_ITS | Patient Health Summary ---
Author Organization [facility] Address [address] [place] [address] Care Team Providers Care Laboratory Tech Name Role Phone Unavailable Primary Care Provider Unavailabl e Note from [facility],non-owned Affiliates and Associated Physician Practices is amultiple site organization consisting of ambulatory clinics and hospital sitesin [place], [place], [place] and [place]. This disclosure is being madepursuant to the Care Everywhere program and may not contain all information available regarding this patient. Last updated 18.[facility] [employer] Allergies * Tramadol(Itching) Medications * Be aware that medications may not be up to date on this document. Alwaysverify current medications with the patient. * albuterol HFA (PROVENTIL;VENTOLIN;PROAIR) 108 (90 Base) MCG/ACT inhaler Inhale 2 puffs by mouth every 6 hours as needed * METFORMIN HCL PO * Insulin Glargine (LANTUS SC) * Insulin Aspart (NOVOLOG SC) * LISINOPRIL PO * DULoxetine HCl (CYMBALTA PO) * Omeprazole (PRILOSEC PO) * Pregabalin (LYRICA PO) * Furosemide (LASIX PO) * ATORVASTATIN CALCIUM PO Social History Tobacco Use Types Packs/Day Years [...]
--- OUTSIDE RECORDS SUMMARY | 2024-11-17 04:24 | XMS_ITS | Clinical Summary ---
Author Organization Unknown Care Team Providers Care [place] Instructor Name Role Phone AVELINA HENSLEY, LEONOR Unavailable Unavailable NICHOLE RN, SHAKIR Unavailable Unavailraleigh JOY LPN, COLUMBA Unavailable Unavailable MICHAEL PT, KERA Unavailable Unavailable TIN METER READER CHIEF, JEROD Unavailable Unavailable NICOLLE OT, MARY Unavailable Unavailable VIOLET CASTANO, SHELDON Unavailable Unavailable Payers Payer Name Policy Type Policy Number Effective Date Expira tion Date [facility].OPTUM.VACCN.[email or web address] Problems Condition Name Condition Details Condition Category Status Onset Date Resolution Date Last Treatment Date Treating Clinician Comments ENCNTR FOR SURGICAL AFTCR FOLLOWING SURGERY ON THE CIRC SYS Active 2023-11 0- 00:00: 00 ATHSCL HEART DISEASE OF [place] CORONARY ARTERY W/O ANG PCTRS Active 2023-11 0- 00:00: 00 BRADYCARDIA, UNSPECIFIED Active 2023-11 0- 00:00: 00 ESSENTIAL (PRIMARY) HYPERTENSION Active 2023-11 0- 00:00: 00 HYPERLIPIDEM IA, UNSPECIFIED Active 2023-11 0 00:00: 00 TYPE 2 DIABETES MELLITUS WITHOUT COMPLICATION S Active 2023-11 0- 00:00: 00 PRIMARY PULMONARY HYPERTENSION Active 2023-11 0- 00:00: 00 RHEUMATIC MITRAL STENOSIS WITH INSUFFICIENC Y Active 2023-11 0- 00:00: 00 UNSPECIFIED ASTHMA, UNCOMPLICATE D Active 2023-11 0- 00:00: 00 OBSTRUCTIVE SLEEP APNEA (ADULT) (PEDIATRIC) Active 2023-11 0- 00:00: 00 GASTRO-ESOPH AGEAL REFLUX DISEASE WITHOUT ESOPHAGITIS Active 2023-11 0- 00:00: 00 LIVER DISEASE, UNSPECIFIED Active 2023-11 0- 00:00: 00 PRESENCE OF ARTIFICIAL KNEE JOINT, BILATERAL Active 2023-11 0-20 00:00: 00 PRESENCE OF CARDIAC PACEMAKER Active 2023-11 0-15 00:00: 00 [facility] (CURRENT) USE OF ORAL HYPOGLYCEMIC DRUGS Active 2023-11 00:00: 00 [facility] (CURRENT) USE OF ANTITHROMBOT ICS/ANTIPLAT ELETS Active 2023-11 00:00: 00 Allergies, Adverse Reactions, Alerts Allergy Name Allergy Type Status Severity Reaction(s) Onset Date Inactive Date Treating Clinician Comments TRAMADOL Propensity to adverse reactions Active 2024-08 15:29:5 3 Medications Ordered Medication Name Filled Medication Name Start Date Stop Date Current Medication? Ordering Clinician Indication Dosage Frequency Signature (SIG) Comments Components albuterol sulfate HFA 90 mcg/actuati on aerosol inhaler 02-13 00:00: 00 Yes [id number] SHORTNESS OF BREATH 1 puff EVERY 6 HOURS 1 puff EVERY 6 HOURS (route: inhalation ) Med Classific ation: Respirato ry Therapy Agents aspirin 81 mg tablet,tavon yed release 02-07 00:00: 00 Yes [id number] BLOOD THINNER 1 tablet DAILY 1 tablet DAILY (route: oral) Med Classific ation: Hematolog ical Agents atorvastati n 80 mg tablet 2023-11 00:00: 00 Yes [id number] CHOLESTEROL CONTROL 1 tablet EVERY PM 1 tablet EVERY PM (route: oral) Med Classific ation: Cardiovas cular Therapy Agents carboxymeth ylcellulose sodium 0.5 % eye drops 02-14 00:00: 00 Yes [id number] DRY EYES 1 drops EVERY 6 HOURS 1 drops EVERY 6 HOURS (route: ophthalmic (eye)) Med Classific ation: Ophthalmi c Agents carvedilol 6.25 mg tablet 02-07 00:00: 00 Yes [id number] HEART FAILURE 0.5 tablet 2 TIMES DAILY 0.5 tablet 2 TIMES DAILY (route: oral) Med Classific ation: Cardiovas cular Therapy Agents clopidogrel 75 mg tablet 2023-11 00:00: 00 Yes [id number] BLOOD THINNER 1 tablet DAILY 1 tablet DAILY (route: oral) Med Classific ation: Hematolog ical Agents duloxetine 60 mg capsule,del ayed release 02-08 00:00: 00 Yes [id number] NERVE PAIN 1 capsule DAILY 1 capsule DAILY (route: oral) Med Classific ation: Central Nervous System Agents ergocalcife rol (vitamin D2) 1,250 mcg (50,000 unit) capsule 2023-11 0-16 00:00: 00 Yes [id number] SUPPLEMENT 1 capsule WEEKLY 1 capsule WEEKLY (route: oral) Med Classific ation: Electroly te Balance-N utritiona l Products ferrous sulfate 325 mg (65 mg iron) tablet 2023-11 0-16 00:00: 00 Yes [id number] ANEMIA 1 tablet DAILY 1 tablet DAILY (route: oral) Med Classific ation: Electroly te Balance-N utritiona l Products folic acid 1 mg tablet 2023-11 0-16 00:00: 00 Yes [id number] SUPPLEMENT 1 tablet DAILY 1 tablet DAILY (route: oral) Med Classific ation: Electroly te Balance-N utritiona l Products glucose 4 gram chewable tablet 3-05 00:00: 00 Yes [id number] LOW BLOOD SUGAR Per instruc tions NEEDED Per instructio ns NEEDED (route: oral) Med Classific ation: Endocrine isosorbide mononitrate ER 30 mg tablet,exte nded release 24 hr 04-11 00:00: 00 Yes [id number] CHEST PAIN CONTROL 0.5 tablet DAILY 0.5 tablet DAILY (route: oral) Med Classific ation: Cardiovas cular Therapy Agents magnesium oxide 400 mg (241.3 mg magnesium) tablet 2023-11 00:00: 00 Yes [id number] SUPPLEMENT 1 tablet 2 TIMES DAILY 1 tablet 2 TIMES DAILY (route: oral) Med Classific ation: Electroly te Balance-N utritiona l Products metformin ER 750 mg tablet,exte nded release 24 hr 2023-1116 00:00: 00 Yes [id number] BLOOD SUGAR CONTROL 1 tablet DAILY 1 tablet DAILY (route: oral) Med Classific ation: Endocrine methocarbam ol 500 mg tablet 04-11 00:00: 00 Yes [id number] MUSCLE SPASMS 1 tablet 2 TIMES DAILY 1 tablet 2 TIMES DAILY (route: oral) Med Classific ation: Locomotor System multivitami n tablet 4-09 00:00: 00 Yes [id number] SUPPLEMENT 1 tablet DAILY 1 tablet DAILY (route: oral) Med Classific ation: Electroly te Balance-N utritiona l Products omeprazole 40 mg capsule,del ayed release 04-11 00:00: 00 Yes [id number] GERD 1 capsule EVERY AM 1 capsule EVERY AM (route: oral) Med Classific ation: Gastroint estinal Therapy Agents pregabalin 100 mg capsule 2023-11 00:00: 00 Yes [id number] NERVE PAIN 1 capsule 2 TIMES DAILY 1 capsule 2 TIMES DAILY (route: oral) Med Classific ation: Central Nervous System Agents Immunizations Ordered Immunization Name Filled Immunization Name Date Status Comments Refusal Reason BOOSTER -COVID-19 VACCINE, COVID-19 VACCINE 2024-04-11 00:00:00 SHINGLES, TIV (INACTIVATED) 2022-02-10 00:00:00 PNEUMOCOCCAL (PPV), PPV 2020-07-24 00:00:00 Vital Signs Vital Name Observation Time Observation Value Commen ts Temperature 2024-08-28 12:44:00.000 97.7 [degF] BMI (%) 2024-08-28 12:44:00.000 31 kg/m2 Height 2024-08-28 12:44:00.000 70 [in_us] Pulse 2024-08-28 12:44:00.000 78 /min O2 Saturation (%) 2024-08-28 12:44:00.000 98 % Respirations 2024-08-28 12:44:00.000 18 /min Weight (lbs) 2024-08-28 12:44:00.000 218.6 [lb_av] Systolic Blood Pressure 2024-08-28 12:44:00.000 135 mm [Hg] Diastolic Blood Pressure 2024-08-28 12:44:00.000 77 mm [Hg] Plan of Treatment Planned Activity Planned Date Details Comments Future Scheduled Test RN TO OBSE RVE, ASSESS, EVALUATE, AND DEVELOP AN INDIVIDUALIZED PLAN OF CARE. AGENCY MAY ACCEPT ORDERS FROM CONSULTING PHYSICIANS:DR Imelda QUAN (INFUSION NURSE), DR Michelle BAIRD (PCP) RN TO OBSERVE AND ASSESS, GEOMORPHOLOGIST/MANAGER CASINO TO OBSERVE FOR RISK FOR FALLS AND INSTRUCT IN FALL PREVENTION, HOME SAFETY, MEDICATION MANAGEMENT, INFECTION PREVENTION, AND NUTRITION MANAGEMENT. RN/GEOMORPHOLOGIST/MANAGER CASINO NURSE MAY PERFORM O2 SATURATION LEVEL. RN TO ASSESS/GEOMORPHOLOGIST TO OBSERVE PATIENT, WITH NOTIFICATION TO THE PHYSICIAN IF SATURATION IS 90% IN THE ABSENCE OF MORE SPECIFIC PARAMETERS FROM THE PHYSICIAN. AGENCY MAY PERFORM A RESUMPTION OF CARE VISIT FOLLOWING ANY HOSPITAL ADMISSION. RN/GEOMORPHOLOGIST/MANAGER CASINO TO MONITOR CO-MORBID CONDITIONS LISTED ON THE PLAN OF CARE AND ANY NEW CONDITIONS THAT PRESENT THEMSELVES DURING THIS EPISODE TO IDENTIFY CHANGES AND INTERVENE TO MINIMIZE COMPLICATIONS. [code = RN TO OBSERVE, ASSESS, EVALUATE, AND DEVELOP AN INDIVIDUALIZED PLAN OF CARE. AGENCY MAY ACCEPT ORDERS FROM CONSULTING PHYSICIANS:DR Imelda QUAN (INFUSION NURSE), DR Michelle BAIRD (PCP) RN TO OBSERVE AND ASSESS, GEOMORPHOLOGIST/MANAGER CASINO TO OBSERVE FOR RISK FOR FALLS AND INSTRUCT IN FALL PREVENTION, HOME SAFETY, MEDICATION MANAGEMENT, INFECTION PREVENTION, AND NUTRITION MANAGEMENT. RN/GEOMORPHOLOGIST/MANAGER CASINO NURSE MAY PERFORM O2 SATURATION LEVEL. RN TO ASSESS/GEOMORPHOLOGIST TO OBSERVE PATIENT, WITH NOTIFICATION TO THE PHYSICIAN IF SATURATION IS 90% IN THE ABSENCE OF MORE SPECIFIC PARAMETERS FROM THE PHYSICIAN. AGENCY MAY PERFORM A RESUMPTION OF CARE VISIT FOLLOWING ANY HOSPITAL ADMISSION. RN/GEOMORPHOLOGIST/MANAGER CASINO TO MONITOR CO-MORBID CONDITIONS LISTED ON THE PLAN OF CARE AND ANY NEW CONDITIONS THAT PRESENT THEMSELVES DURING THIS EPISODE TO IDENTIFY CHANGES AND INTERVENE TO MINIMIZE COMPLICATIONS.] Future Scheduled Test MEDICATION MANAGEMENT; RN/GEOMORPHOLOGIST/MANAGER CASINO TO REVIEW MEDICATIONS FOR INTERACTIONS, EFFECTIVENESS OF DRUG THERAPY, AND SIGNS/SYMPTOMS OF ADVERSE REACTIONS. MAY INSTRUCT AND REINFORCE MEDICATION TEACHING RELATED TO THE USE OF MEDICATIONS, DOSAGE, FREQUENCY, PURPOSE, SIDE EFFECTS, AND TO REPORT COMPLICATIONS. [code = MEDICATION MANAGEMENT; RN/GEOMORPHOLOGIST/MANAGER CASINO TO REVIEW MEDICATIONS FOR INTERACTIONS, EFFECTIVENESS OF DRUG THERAPY, AND SIGNS/SYMPTOMS OF ADVERSE REACTIONS. MAY INSTRUCT AND REINFORCE MEDICATION TEACHING RELATED TO THE USE OF MEDICATIONS, DOSAGE, FREQUENCY, PURPOSE, SIDE EFFECTS, AND TO REPORT COMPLICATIONS.] Future Scheduled Test ANTICOAGUL ATION MANAGEMENT; PLAVIX RN TO ASSESS AND TEACH, GEOMORPHOLOGIST/MANAGER CASINO TO OBSERVE/TEACH/MONITOR EFFECTIVENESS OF ANTICOAGULATION THERAPY. RN/GEOMORPHOLOGIST/MANAGER CASINO TO INSTRUCT ON SIGNS AND SYMPTOMS OF BLEEDING/ADVERSE REACTIONS TO REPORT TO PHYSICIAN. [code = ANTICOAGULATION MANAGEMENT; PLAVIX RN TO ASSESS AND TEACH, GEOMORPHOLOGIST/MANAGER CASINO TO OBSERVE/TEACH/MONITOR EFFECTIVENESS OF ANTICOAGULATION THERAPY. RN/GEOMORPHOLOGIST/MANAGER CASINO TO INSTRUCT ON SIGNS AND SYMPTOMS OF BLEEDING/ADVERSE REACTIONS TO REPORT TO PHYSICIAN. ] Future Scheduled Test RISK FOR H OSPITALIZATION; RN TO ASSESS/TEACH, MANAGER CASINO/GEOMORPHOLOGIST TO OBSERVE/TEACH PATIENT/CAREGIVER ON RISK FOR HOSPITALIZATION/EMERGENCY ROOM VISITS, TEACH SIGNS AND SYMPTOMS THAT PUT PATIENT AT RISK, WHEN TO NOTIFY NURSE/PHYSICIAN OF COMPLICATIONS/DECLINE, AND WHEN TO CALL 911. [code = RISK FOR HOSPITALIZATION; RN TO ASSESS/TEACH, MANAGER CASINO/GEOMORPHOLOGIST TO OBSERVE/TEACH PATIENT/CAREGIVER ON RISK FOR HOSPITALIZATION/EMERGENCY ROOM VISITS, TEACH SIGNS AND SYMPTOMS THAT PUT PATIENT AT RISK, WHEN TO NOTIFY NURSE/PHYSICIAN OF COMPLICATIONS/DECLINE, AND WHEN TO CALL 911.] Future Scheduled Test CARDIOVASC ULAR SYSTEM; RN TO ASSESS/TEACH, GEOMORPHOLOGIST/MANAGER CASINO TO OBSERVE/TEACH RELATED TO ALTERED CARDIOVASCULAR STATUS TO MINIMIZE COMPLICATIONS AND REDUCE HOSPITALIZATION. [code = CARDIOVASCULAR SYSTEM; RN TO ASSESS/TEACH, GEOMORPHOLOGIST/MANAGER CASINO TO OBSERVE/TEACH RELATED TO ALTERED CARDIOVASCULAR STATUS TO MINIMIZE COMPLICATIONS AND REDUCE HOSPITALIZATION.] Future Scheduled Test CORONARY A RTERY BYPASS GRAFT (CABG); RN TO ASSESS/TEACH, GEOMORPHOLOGIST/MANAGER CASINO TO OBSERVE/TEACH WARNING SIGNS AND SYMPTOMS TO AVOID HOSPITALIZATION. MONITOR SURGICAL INCISION SITES FOR S/S OF INFECTION. [code = CORONARY ARTERY BYPASS GRAFT (CABG); RN TO ASSESS/TEACH, GEOMORPHOLOGIST/MANAGER CASINO TO OBSERVE/TEACH WARNING SIGNS AND SYMPTOMS TO AVOID HOSPITALIZATION. MONITOR SURGICAL INCISION SITES FOR S/S OF INFECTION.] Future Scheduled Test HYPERTENSI ON MANAGEMENT; RN TO ASSESS AND TEACH, GEOMORPHOLOGIST/MANAGER CASINO TO OBSERVE AND TEACH WARNING SIGNS AND SYMPTOMS TO AVOID HOSPITALIZATION. [code = HYPERTENSION MANAGEMENT; RN TO ASSESS AND TEACH, GEOMORPHOLOGIST/MANAGER CASINO TO OBSERVE AND TEACH WARNING SIGNS AND SYMPTOMS TO AVOID HOSPITALIZATION.] Future Scheduled Test RESPIRATOR Y SYSTEM MANAGEMENT; RN TO ASSESS AND TEACH, GEOMORPHOLOGIST/MANAGER CASINO TO OBSERVE AND TEACH RELATED TO ALTERED RESPIRATORY STATUS TO MINIMIZE COMPLICATIONS AND REDUCE HOSPITALIZATION. [code = RESPIRATORY SYSTEM MANAGEMENT; RN TO ASSESS AND TEACH, GEOMORPHOLOGIST/MANAGER CASINO TO OBSERVE AND TEACH RELATED TO ALTERED RESPIRATORY STATUS TO MINIMIZE COMPLICATIONS AND REDUCE HOSPITALIZATION.] Future Scheduled Test ASTHMA MAN AGEMENT; RN TO ASSESS AND TEACH, GEOMORPHOLOGIST/MANAGER CASINO TO OBSERVE AND TEACH ASTHMA MANAGEMENT AND PROVIDE EARLY INTERVENTIONS TO MINIMIZE RISK OF HOSPITALIZATION [code = ASTHMA MANAGEMENT; RN TO ASSESS AND TEACH, GEOMORPHOLOGIST/MANAGER CASINO TO OBSERVE AND TEACH ASTHMA MANAGEMENT AND PROVIDE EARLY INTERVENTIONS TO MINIMIZE RISK OF HOSPITALIZATION] Future Scheduled Test RN/GEOMORPHOLOGIST/MANAGER CASINO TO PERFORM/TEACH INCISION CARE TO MIDLINE STERNUM AND LEFT FOREARM SURGICAL INCISIONS. ASSESS FOR SIGNS AND SYMPTOMS OF INFECTION EDUCATED PATIENT. LEAVE INCISIONS OPEN TO AIR. [code = RN/GEOMORPHOLOGIST/MANAGER CASINO TO PERFORM/TEACH INCISION CARE TO MIDLINE STERNUM AND LEFT FOREARM SURGICAL INCISIONS. ASSESS FOR SIGNS AND SYMPTOMS OF INFECTION EDUCATED PATIENT. LEAVE INCISIONS OPEN TO AIR.] Future Scheduled Test PAIN MANAG EMENT; RN TO ASSESS AND TEACH, MANAGER CASINO/GEOMORPHOLOGIST TO OBSERVE AND TEACH AND PROVIDE EDUCATION ON PAIN MANAGEMENT TECHNIQUES. [code = PAIN MANAGEMENT; RN TO ASSESS AND TEACH, MANAGER CASINO/GEOMORPHOLOGIST TO OBSERVE AND TEACH AND PROVIDE EDUCATION ON PAIN MANAGEMENT TECHNIQUES.] Future Scheduled Test DIABETES M ANAGEMENT; RN TO ASSESS AND TEACH, MANAGER CASINO/GEOMORPHOLOGIST TO OBSERVE AND TEACH INSTRUCTIONS OF DIABETIC CARE TO INCLUDE: DIET ADA SKIN CARE, SIGNS AND SYMPTOMS OF HYPO/HYPERGLYCEMIA, PROPER ADMINISTRATION OF DIABETIC MEDICATION. RN/MANAGER CASINO/GEOMORPHOLOGIST TO INSTRUCT ON DIABETIC FOOT CARE AND MONITOR FOR SKIN LESIONS ON LOWER EXTREMITIES. BLOOD GLUCOSE TESTING DAILY. RN TO ASSESS AND TEACH, MANAGER CASINO/GEOMORPHOLOGIST TO OBSERVE AND TEACH PATIENT/CAREGIVER ABILITY TO PERFORM AND RECORD BLOOD GLUCOSE TESTING ORDERED AND TO REPORT ABNORMAL FINDINGS TO PHYSICIAN. RN/MANAGER CASINO/GEOMORPHOLOGIST MAY PERFORM BLOOD GLUCOSE TEST NEEDED. RN/MANAGER CASINO/GEOMORPHOLOGIST TO REPORT TO PHYSICIAN BLOOD GLUCOSE READINGS GREATER THAN 300 OR LESS THAN 70. RN/MANAGER CASINO/GEOMORPHOLOGIST TO INSTRUCT PATIENT ON IMPORTANCE OF HGBA1C MONITORING, KIDNEY FUNCTION TEST, EYE AND FOOT EXAMS. [code = DIABETES MANAGEMENT; RN TO ASSESS AND TEACH, MANAGER CASINO/GEOMORPHOLOGIST TO OBSERVE AND TEACH INSTRUCTIONS OF DIABETIC CARE TO INCLUDE: DIET ADA SKIN CARE, SIGNS AND SYMPTOMS OF HYPO/HYPERGLYCEMIA, PROPER ADMINISTRATION OF DIABETIC MEDICATION. RN/MANAGER CASINO/GEOMORPHOLOGIST TO INSTRUCT ON DIABETIC FOOT CARE AND MONITOR FOR SKIN LESIONS ON LOWER EXTREMITIES. BLOOD GLUCOSE TESTING DAILY. RN TO ASSESS AND TEACH, MANAGER CASINO/GEOMORPHOLOGIST TO OBSERVE AND TEACH PATIENT/CAREGIVER ABILITY TO PERFORM AND RECORD BLOOD GLUCOSE TESTING ORDERED AND TO REPORT ABNORMAL FINDINGS TO PHYSICIAN. RN/MANAGER CASINO/GEOMORPHOLOGIST MAY PERFORM BLOOD GLUCOSE TEST NEEDED. RN/MANAGER CASINO/GEOMORPHOLOGIST TO REPORT TO PHYSICIAN BLOOD GLUCOSE READINGS GREATER THAN 300 OR LESS THAN 70. RN/MANAGER CASINO/GEOMORPHOLOGIST TO INSTRUCT PATIENT ON IMPORTANCE OF HGBA1C MONITORING, KIDNEY FUNCTION TEST, EYE AND FOOT EXAMS.] Future Scheduled Test ANEMIA MAN AGEMENT; RN TO ASSESS AND TEACH, MANAGER CASINO/GEOMORPHOLOGIST TO OBSERVE AND TEACH AND PROVIDE EDUCATION ON ANEMIA. [code = ANEMIA MANAGEMENT; RN TO ASSESS AND TEACH, MANAGER CASINO/GEOMORPHOLOGIST TO OBSERVE AND TEACH AND PROVIDE EDUCATION ON ANEMIA.] Future Scheduled Test FALL REDUC TION MANAGEMENT; RN TO ASSESS AND TEACH, GEOMORPHOLOGIST/MANAGER CASINO TO OBSERVE AND TEACH ON EDUCATION AND INTERVENTION TO IDENTIFY FALL RISK FACTORS SUCH MEDICATIONS THAT MAY CAUSE DIZZINESS, CHRONIC DISEASES, PSYCHOLOGICAL FACTORS, AND EMPOWER/EDUCATE PATIENT/CAREGIVER TO MINIMIZE FALL RISK. [code = FALL REDUCTION MANAGEMENT; RN TO ASSESS AND TEACH, GEOMORPHOLOGIST/MANAGER CASINO TO OBSERVE AND TEACH ON EDUCATION AND INTERVENTION TO IDENTIFY FALL RISK FACTORS SUCH MEDICATIONS THAT MAY CAUSE DIZZINESS, CHRONIC DISEASES, PSYCHOLOGICAL FACTORS, AND EMPOWER/EDUCATE PATIENT/CAREGIVER TO MINIMIZE FALL RISK.] Future Scheduled Test PRN VISITS ; NUMBER OF RN/GEOMORPHOLOGIST/MANAGER CASINO VISITS: 1 RN/GEOMORPHOLOGIST/MANAGER CASINO TO PERFORM: CARDIAC ASSESSMENT FOR THE FOLLOWING REASONS: COMPLICATIONS [code = PRN VISITS; NUMBER OF RN/GEOMORPHOLOGIST/MANAGER CASINO VISITS: 1 RN/GEOMORPHOLOGIST/MANAGER CASINO TO PERFORM: CARDIAC ASSESSMENT FOR THE FOLLOWING REASONS: COMPLICATIONS ] Goal 2024-10-26 Patient Goal - TO GET BACK T O NORMAL Goal Provider Goal - A PLAN OF CARE WILL BE ESTABLISHED THAT MEETS THE PATIENTS NEEDS. PATIENT WILL DEMONSTRATE OXYGEN SATURATION WITHIN NORMAL LIMITS OR PATIENTS OPTIMAL LEVEL ESTABLISHED BY THE PHYSICIAN THROUGHOUT CARE. CHANGES TO CO-MORBID CONDITIONS AND ANY NEW CONDITIONS WILL BE IDENTIFIED AND REPORTED TO THE PHYSICIAN. Goal Provider Goal - PATIENT/CAREGIVER TO VERBALIZE, AND CONSISTENTLY DEMONSTRATE EFFECTIVE, SAFE MANAGEMENT OF MEDICATION INCLUDING KNOWLEDGE OF EFFECTIVENESS, POTENTIAL SIDE EFFECTS AND DRUG REACTIONS AND WHEN TO CONTACT THE APPROPRIATE CARE PROVIDER. PATIENT/CAREGIVER WILL BE ABLE TO VERBALIZE UNDERSTANDING OF MEDICATION REGIMEN AND ACCURATELY TAKE MEDICATIONS PRESCRIBED WITHOUT ADVERSE EFFECTS BY 10/26/24. Goal Provider Goal - INEFFECTIVE ANTICOAGULATION THERAPY WILL BE IDENTIFIED AND PROMPTLY REPORTED TO THE PHYSICIAN. PATIENT / CAREGIVER WILL VERBALIZE UNDERSTANDING OF MEASURES TO MAINTAIN EFFECTIVE ANTICOAGULATION THERAPY BY 10/26/24. Goal Provider Goal - PATIENT/CAREGIVER WILL VERBALIZE UNDERSTANDING OF SIGNS AND SYMPTOMS THAT PUT THE PATIENT AT RISK FOR HOSPITALIZATION /EMERGENCY ROOM VISITS, WHEN TO NOTIFY NURSE/PHYSICIAN OF COMPLICATIONS/DECLINE AND WHEN TO CALL 911. Goal Provider Goal - PATIENT / CAREGIVER WILL VERBALIZE/DEMONSTRATE UNDERSTANDING OF MEASURES TO MANAGE ALTERED CARDIOVASCULAR STATUS BY 10/26/24. Goal Provider Goal - PATIENT / CAREGIVER WILL VERBALIZE/DEMONSTRATE AN ABILITY TO ADHERE TO SELF-MANAGEMENT OF CABG TO MINIMIZE COMPLICATIONS AND AVOID HOSPITALIZATION BY END OF EPISODE. Goal Provider Goal - PATIENT / CAREGIVER WILL VERBALIZE/DEMONSTRATE AN ABILITY TO ADHERE TO SELF-MANAGEMENT OF HTN TO MINIMIZE COMPLICATIONS AND AVOID HOSPITALIZATION BY END OF EPISODE. Goal Provider Goal - PATIENT / CAREGIVER WILL VERBALIZE/DEMONSTRATE UNDERSTANDING OF MEASURES TO MANAGE ALTERED RESPIRATORY STATUS BY END OF EPISODE. Goal Provider Goal - PATIENT/CAREGIVER WILL VERBALIZE/ DEMONSTRATE AN ABILITY TO ADHERE TO SELF-MANAGEMENT OF ASTHMA TO MINIMIZE COMPLICATIONS AND AVOID HOSPITALIZATIONS BY END OF EPISODE. Goal Provider Goal - PATIENT / CAREGIVER WILL VERBALIZE / DEMONSTRATE ABILITY TO PERFORM WOUND CARE. WOUND STATUS WILL IMPROVE EVIDENCED BY A DECREASE IN SIZE, DRAINAGE, ABSENCE OF INFECTION, AND DECREASED PAIN BY 10/26/24. Goal Provider Goal - PATIENT / CAREGIVER WILL VERBALIZE / DEMONSTRATE UNDERSTANDING OF PAIN CONTROL MEASURES BY 10/26/24. Goal Provider Goal - PATIENT / CAREGIVER WILL VERBALIZE / DEMONSTRATE AN ABILITY TO ADHERE TO SELF-MANAGEMENT OF DIABETES MANAGEMENT BY 10/26/24. Goal Provider Goal - PATIENT/CAREGIVER WILL VERBALIZE UNDERSTANDING OF CARE AND MANAGEMENT OF ANEMIA BY END OF EPISODE. Goal Provider Goal - PATIENT/CAREGIVER ABLE TO IDENTIFY FALL RISK FACTORS AND IMPLEMENT STRATEGIES TO MINIMIZE FALL RISK. PATIENT/CAREGIVER WILL VERBALIZE/DEMONSTRATE AN ABILITY TO ADHERE TO FALL REDUCTION SELF-MANAGEMENT AND LIFE-STYLE CHANGES AT DISCHARGE. PERSONAL GOAL(S) STATED BY PATIENT/CAREGIVER WILL BE MET BY . Goal Provider Goal - Reason for Visit PATIENT IN FACILITY AT END OF EPISODE Encounters Start Date/Time End Date/Time Encounter Type Admission Type Attending Clinicians Care Facility Care Department Encounter ID Discharge Date Discharge Status Discharge Condition Discharge Reason Percent Goals Met 2024-08-28 00:00:00 2024-10-26 00:00:00 Outpatient NEW ADMISSION SHAKIR VARELA [facility] [id number] 2024-10-26 00:00:00 DISCHARGED /TRANSFERR ED TO A SHORT-[facility] PATIENT IN FACILITY AT END OF EPISODE HH ONLY - TRANSFER TO HOSPITAL 80.00
--- OUTSIDE RECORDS SUMMARY | 2024-11-17 04:25 | XMS_ITS | Encounter Summary ---
Author Organization [facility] Healthcare Address [address] [place] [address] Care Team Providers Care Direct Selling Counselor Name Role Phone Juan Retana MD Primary Care Provider [phone] [facility], Alverto Gottliebran Unavailable Johnathan Mckee MD Unavailable [phone] Reason for Visit * Auth/Cert (Routine) Specialty Diagnoses / Procedures Referred By Contac t Referred To Contact Diagnoses Acute cholecystitis cholecystitis Procedures na Referral ID Status Reason Start Date Expiration Date Visits Re quested Visits Authorized [id number] 1 1 Encounter Details Date Type Department Care Team (Latest Contact Info) Description 09/05/2024 2:45 PM CDT - 09/05/2024 3:30 PM CDT Surgery [facility] [address] [place] [address] Milton Mclean MD [address] [facility] [address] [place] [address] ENDO ENDOSCOPIC RETROGRADE CHOLANGIOPANCREATOGRAPHY WITH STENT PLACEMENT [GI509] Surgery Details Date/Time Status Location OR Service Patient Class Case Class Case Type Trauma Case? 09/05/2024 2:45 PM Posted [facility] ENDOSCOPY GI 06 Gastroenterology Inpatient Elective Panel 1 Procedure LRB Anes Op Region Wound Class Comments ENDO ENDOSCOPIC RETROGRADE CHOLANGIOPANCREATOGRAPHY WITH STENT PLACEMENT N/A Choice ENDO ADD ON ENDOSCOPIC RETRO GRADE CHOLANGIOPANCREATOGRAPHY WITH STENT PLACEMENT N/A Choice Surgeon Surgeon Role Service Panel Milton Mclean MD Primary Gastroenterology 1 documented in this encounter Social History Tobacco Use Types Packs/Day Years Used Date Smoking Tobacco: Former Cigarettes 1.5 19.6 1 961 - 06/11/1980 Passive Smoke Exposure: Past Smokeless Tobacco: Never Alcohol Use Standard Drinks/Week Comments Yes 0 (1 standard drink = 0.6 oz pur e alcohol) rare - maybe 1 beer/month [facility] Utilities Answer Date Recorded In the past 12 months has e [employer], gas, oil, or water [employer] threatened to shut off services in your [...] often do you attend chur ch or oriental orthodox services? Never 09/05/2024 Do you belong to any clubs o r organizations such as alevism groups, unions, fraternal or athletic groups, or [...] any time in the past [address] [facility], were you homeless or living in a [place] health care facility (including now)? No 09/05/2024 Personal Safety Answer Date Recorded Have you ever been in or are you currently in a harmful physical or emotional relationship or is someone making you feel afraid or unsafe? Denies 09/04/2024 Sex and Gender Information Value Date Recorded Sex Assigned at Not on file Legal Sex Male 1:06 PM [employer] Gender Identity Not on file Sexual Orientation Not on file documented as of this encounter Last Filed Vital Signs Vital Sign Reading Time Taken Comments Blood Pressure 158/91 09/05/2024 3:20 PM CDT Pulse 88 09/05/2024 3:20 PM CDT Temperature 36.2 ??C (97.2 ??F) 09/05/2024 1:47 PM CD T Respiratory Rate 19 09/05/2024 3:20 PM CDT Oxygen Saturation 94% 09/05/2024 3:20 PM CDT Inhaled Oxygen Concentration - - Weight 104.8 kg (231 lb 0.7 oz) 024 12:17 PM CDT Height 177.8 cm (5' 10 ) 09/04/2024 12: 17 PM CDT Body Mass Index 33.15 09/04/2024 12:17 PM CDT documented in this encounter Discharge Summaries * Giovanny Garcia MD - 09/07/2024 11:19 AM CDT Inpatient Discharge Summary Patient Name - Abiel Fink Patient Age - 74 yrs Patient - [id number] [facility] - [id number] Document Creation Date: 09/07/2024 Admitting Provider, MD: Jose Enriquez MD Discharge Provider, : Giovanny Garcia MD Primary Care Physician at Discharge: Juan Retana MD [phone] Admission Date: 09/01/2024 Discharge Date/time: 09/07/2024 Admission Location: [facility] LOS - LOS: 6 days DETAILS OF HOSPITAL STAY Hospital Problems/Diagnoses Principal Problem: Acute cholecystitis Active Problems: Coronary artery disease with history of myocardial infarction without history of CABG Coronary artery disease due to calcified coronary lesion Complete heart block (CMS/HCC) ([facility]) DM2 (diabetes mellitus, type 2) ([facility]) Biventricular cardiac pacemaker in situ Reason for Hospitalization: Acute gangrenous cholecystitis CAD with recent CABG Hospital Course: Pt is a 74 yo CM with hx including CAD, asthma, DM, GERD with hiatal hernia, HTN, heart block. He had completed 3-vessel CABG on 07/24 at the [facility], subsequently with pacemaker placement for heart block.He presented to [facility] on 09/01 for abd pain - CT showed acute cholecystitis. Surgery there declined to intervene because of his recent cardiac surgery and he was transferred to [facility]. Upon arrival he was seen by Cardiology, had no evidence of acute cardiac problems and was cleared for surgery. He went to OR with Dr. Anton on 09/05, that found a gangrenous gallbladder, convered tolap to open incision. On 09/06 he had [...] home with home therapy - he is nowoff sternal precautions and will have drain removed prior to discharge, but should continue wound care. Discharge Details Physical Exam at Discharge: Discharge Condition: good Pulse: 62 Resp: 18 BP: 128/70 Temp: 36 ??C (96.8 ??F) Weight: 104.8 kg (231 lb 0.7 oz) Pertinent Exam Findings at Discharge: General Appearance: Comfortable, cooperative Head: Normocephalic, atraumatic Eyes: EOMI, sclera clear Nose: Normal appearance Throat: Normal oropharynx Neck: Supple, symmetrical Lungs: Normal respiratory effort Cardiovascular: Regular rate Abdomen: Soft, nontender +RUQ incision, intact Extremities: No edema in legs Otherwise normal appearance Skin: No obvious rashes, lesions or bruising Neurologic: Alert, oriented Cranial nerves grossly intact, face symmetric Psychosocial: Normal affect and mood Discharge Disposition: Discharge to home or self care Code Status at Discharge: Full Code Active Issues & Recommended Plan for Follow-up: With Dr. Anton in 2-4 weeks if possible, with Dr. Mckee and [facility] Cardiology as scheduled Allergies: Tramadol Discharge Medications: Your medication list START taking these medications Instructions Last Dose Given Next Dose Due amoxicillin-clavulanate 875-125 mg per tablet Commonly known as: AUGMENTIN 875 mg of amoxicillin, oral, 2 times daily HYDROcodone-acetaminophen 5-325 mg per tablet Commonly known as: NORCO 1 tablet, oral, Every 6 hours PRN CONTINUE taking these medications Instructions Last Dose Given Next Dose Due albuterol HFA 90 mcg/actuation inhaler Commonly known as: PROVENTIL HFA,VENTOLIN HFA,PROAIR HFA 2 puffs, inhalation, Every 6 hours PRN ammonium lactate 12 % cream Commonly known as: AMLACTIN 1 Application, topical, As needed aspirin 81 mg enteric coated tablet 81 mg, oral, Daily atorvastatin 80 mg tablet Commonly known as: LIPITOR 80 mg, oral, Daily bumetanide 1 mg tablet Commonly known as: BUMEX 0.5 mg, oral carboxymethylcell-glycerin(PF) 0.5-0.9 % drops 1 drop, ophthalmic, As needed carvediloL 3.125 mg tablet Commonly known as: COREG 3.125 mg, oral, 2 times daily with meals (bkfst, dinner) clopidogreL 75 mg tablet Commonly known as: PLAVIX 75 mg, oral, Daily DULoxetine DR 60 mg capsule Commonly known as: CYMBALTA 60 mg, oral, Every morning isosorbide mononitrate ER 30 mg 24 hr tablet Commonly known as: IMDUR 15 mg, oral, Daily magnesium oxide 400 mg (241.3 mg elemental magnesium) tablet Commonly known as: MAG-OX 800 mg, oral, 2 times daily MULTIVITAMIN ORAL 1 tablet, oral, Every morning omeprazole 20 mg capsule Commonly known as: PriLOSEC 20 mg, oral, Every morning pregabalin 100 mg capsule Commonly known as: LYRICA 100 mg, oral, 2 times daily Where to Get Your Medications These medications were sent to [facility] - [place], [place] - [address] [facility] [address] [facility] [address] amoxicillin-clavulanate 875-125 mg per tablet HYDROcodone-acetaminophen 5-325 mg per tablet Time Spent in Discharge Process: I have spent 33 minutes on discharge planning activities. Time spent was on Coordination of care, Counselling with patient/family, and Other provider communication Test Results Pending at Discharge (If Blank, None Found): Pending Labs Order Current Status Check Sample In process Surgical pathology In process Aerobic and anaerobic culture and gram stain Bile Abdominal Preliminary result Blood culture Blood Preliminary result Blood culture Blood Preliminary result Operative Procedures Performed (If Blank, None Found): Procedure(s): ENDO ENDOSCOPIC RETROGRADE CHOLANGIOPANCREATOGRAPHY WITH STENT PLACEMENT ENDO ADD ON ENDOSCOPIC RETROGRADE CHOLANGIOPANCREATOGRAPHY WITH STENT PLACEMENT Outpatient Follow-Up: Future Appointments Date Time Provider Department Center 09/12/2024 1:15 PM Johnathan Mckee MD [facility] 11/15/2024 12:30 PM CARD DEVICE CHECK-CAM 8B CAR [facility] 8B Cardiology 11/15/2024 1:00 PM Chrissy Bermudez, JUST[facility] CAR [facility] 8B Cardiology Contact Information for Follow-ups [facility] [address] [facility] [address] Next Steps: Follow up Questions: Please select the performing region: External Order To loc/pos: [facility] Select a phase: Phase 2 # of visits: 36 Referral Status: External - Ready to Schedule [facility] Home Care Services Specialty: Home Health and Hospice [address] [facility] [address] Next Steps: Follow up Questions: Service Line: Home Health Primary disciplines requested: Physical Therapy Secondary disciplines requested: Occupational Therapy Home Health Services: Therapy to Eval/Tx Therapy instructions: Evaluation/treatment ADL/ ladl management Requested Start of Care Date: 24-48 hours Physician to follow patient's care (the person listed here will be responsible for signing ongoing orders): PCP I attest that I or another qualified licensed provider saw the patient 90 days prior to or 30 days post admission and this face to face encounter meets the necessary Home Health requirements. The face to face encounter occurred on (date): 09/06/2024 The encounter with the patient was in whole, or in part, for the following medical condition, whichis the primary reason for home health care. (List medical condition): CAD s/p CABG, acute cholecystitis s/p cholecystectomy I certify that, based on my findings, the following services are medically necessary skilled home health services: Therapy to Eval/Tx Clinical findings that support the need for home care: Frequent falls requiring safety eval/therapy I certify that my clinical findings support patient's homebound status. Homebound criteria met because: Requires assistance of another to leave home safely Abnormal gait/unsteady balance resulting in fall risk Referral Status: Appointment Canceled Ever Anton MD Specialty: General Surgery, Surgical Critical Care Relationship: Consulting Physician [address] [facility] [address] [place] [address] Next Steps: Follow up Instructions: Follow up with Dr Anton in 2weeks. Please call [phone] to make appointment. Questions: Instructions for follow-up (appointment date and time): Follow up with Dr Anton in 2weeks. Please call [phone] to make appointment. To provider: EVER ANTON Omar M., MD Specialty: General Surgery, Surgical Critical Care Relationship: Consulting Physician [address] [place] [address] Next Steps: Follow up Comments: Surgery in 2-4 weeks if possible for postop check Questions: To provider: EVER ANTON Please schedule an appointment with the following provider(s): [facility] [address] [facility] [address] [facility] Home Care Services [address] [facility] [address] Ever Anton MD [address] [facility] [address] [place] [address] Anton in 2weeks. Please call [phone] to make appointment. Ever Anton MD [address] [facility] [address] [facility] [address] ANCILLARY INFORMATION Other Procedures & Diagnostic Tests: US RUQ Result Date: 09/03/2024 EXAMINATION: LIMITED ABDOMINAL SONOGRAM HISTORY: Right upper quadrant pain. COMPARISON: No relevantprior imaging available for comparison. FINDINGS: Liver: Nodular [...] pancreas is obscured by overlying bowel gas. 1. Gallbladder sludge with nonspecific wall thickening. No pericholecystic fluid or sonographic Rothman sign. Normal appearance of the biliary system. 2. Cirrhotic liver with perihepatic ascites. Patent portal vein with appropriate directional flow. Electronically signed by: Jeremy Edwards M.D. ECG 12 lead Result Date: 09/02/2024 Vent Rate: 92 bpm RR Interval: 650 msec MD Interval: 154 msec QRS Duration: 151 msec QT Interval: 406 msec QTC Interval: 456 msec P-R-T [place]: 37 - 267 - 106 degrees IMPRESSION: ELECTRONIC VENTRICULARPACEMAKER ABNORMAL RHYTHM ECG NO PRIOR TRACING Electronically Signed By: Mynor Arnett MD [facility] Recent Labs: Recent Labs Lab Units 09/07/24 0620 09/06/24 1232 09/05/24 0640 WBC K/cumm 6.9 6.0 7.1 HEMOGLOBIN g/dL 8.6* 7.7* 10.0* HEMATOCRIT % 29.5* 25.7* 34.3* PLATELETS K/cumm 173 156 185 Recent Labs Lab Units 09/07/24 0620 09/06/24 1232 09/05/24 0640 WBC K/cumm 6.9 6.0 7.1 HEMOGLOBIN g/dL 8.6* 7.7* 10.0* HEMATOCRIT % 29.5* 25.7* 34.3* PLATELETS K/cumm 173 156 185 NEUTROS PCT % 78.4 81.5 85.1 LYMPHS PCT % 12.8 9.9 7.6 MONOS PCT % 6.1 6.2 4.8 EOS PCT % 0.6 0.0 0.1 Recent Labs Lab Units 09/07/2461909/06/24 1232 09/05/24 0841 09/05/24526 SODIUM mmol/L 135 145 -- 139 POTASSIUM PLASMA mmol/L 4.1 3.6 -- 4.3 CHLORIDE mmol/L 104 107 -- 105 CO2 mmol/L 19* 18* -- 22 BUN SERUM mg/dL 24 20 -- 12 CREATININE mg/dL 1.11 1.09 -- 0.83 ESU-IXC-[id number] mL/min/1.73 m2 71 72 -- >90 GLUCOSE mg/dL 111 123 -- 139 POC GLUCOSE MONITOR -- -- < > -- CALCIUM mg/dL 7.6* 7.4* -- 8.3* ALBUMIN g/dL 2.4* 2.7* -- 3.1* PHOSPHORUS PLASMA mg/dL 3.2 3.1 -- 4.4 < > = values in this interval not displayed. Recent Labs Lab Units 09/07/2461909/06/24123109/06/24 0633 09/05/24 0841 09/05/24526 SODIUM mmol/L 135 145 -- -- 139 POTASSIUM PLASMA mmol/L 4.1 3.6 -- -- 4.3 CHLORIDE mmol/L 104 107 -- -- 105 CO2 mmol/L 19* 18* -- -- 22 ANIONGAP mmol/L 12 20* -- -- 12 GLUCOSE mg/dL 111 123 -- -- 139 POC GLUCOSE MONITOR mg/dL -- -- 141 < > -- BUN SERUM mg/dL 24 20 -- -- 12 CREATININE mg/dL 1.11 1.09 -- -- 0.83 CALCIUM mg/dL 7.6* 7.4* -- -- 8.3* ALBUMIN g/dL 2.4* 2.7* -- -- 3.1* ALK PHOS Units/L 156* 145* -- -- 175* ALT Units/L 20 21 -- -- 24 AST Units/L 38 35 -- -- 42 BILIRUBIN TOTAL mg/dL 0.3 0.3 -- -- 0.5 < > = values in this interval not displayed. Recent Labs Lab Units 09/07/2461909/06/24 1232 10/29/24 0527 ALK PHOS Units/L 156* 145* 175* BILIRUBIN TOTAL mg/dL 0.3 0.3 0.5 BILIRUBIN DIRECT mg/dL 0.2 0.2 0.3 TOTAL PROTEIN g/dL 6.0* 6.2* 6.8 ALT Units/L 20 21 24 AST Units/L 38 35 42 Recent Labs Lab Units 09/02/24 0938 MAGNESIUM mg/dL 1.9 Lab Results Component Value Date GLUCOSE 111 09/07/2024 GLUCOSE 123 09/06/2024 GLUCOSE 141 09/06/2024 Implant: Implants ICD Med[employer]onic Inc Cardiac [place] Hf 2 Chamber Df4 Inline Cnctr Is4 [id number] - [id number] - [id number] - Implanted Inventory item: [employer] CARDIAC [place] HF 2 CHAMBER DF4 INLINE CNCTR IS4 [id number] Model/Cat number: [id number] Serial number: [id number] Conveyor Attendant: Med[employer] Inc Implant Date: 08/04/2024 As of 08/04/2024 Status: Implanted Pacemaker-icd Generator Implant Site: Chest wall - subcutaneous Pacemaker-icd System Maximum Capability: CRTD Pacemaker, Icd Underlying Rhythms: Atrioventricular block Pacemaker, Icd Generator Current Programmed Mode: DDD Pacemaker Atrial Lead Threshold (v): 1 Pacemaker Atrial Lead Pulse Duration (ms): 0.4 Pacemaker Rv Lead Threshold (v): 0.5 Pacemaker Ventricular Lead Pulse Duration (ms): 0.4 Accountant Property Device Lv Lead Threshold (v): 1 Accountant Property Device Lv Lead Pulse Duration (ms): 0.4 Pacemaker-project engineer chemicals Ra Sensing Amplitude (mv): 2.3 Pacemaker-project engineer chemicals Rv Sensing Amplitude (mv): 6.6 Atrial Impedance: 589 Rv Impedance: 437 Lv Impedance: 418 Lead Shock Impedance Ohms: 83 Pacemaker Basic Pacing Rate: 60 Pacemaker-icd Av Delay (ms): 180 Pacemaker-icd Atrial Output Voltage (v): 3.5 Pacemaker-icd Atrial Pulse Duration (ms): 0.4 Pacemaker-icd Rv Output Voltage (v): 3.5 Pacemaker-icd Rv Pulse Duration (ms): 0.4 Accountant Property Lv Output Voltage (v): 2.5 Accountant Property Lv Pulse Duration (ms): 0.4 Presenting Rhythm: BIV Paced Sensor Monitored Heart Rate: 130 Lead Medtronic Inc Sprint Quattro Secure 62cm Tripolar Screw In Extendable [id number] - [id number] - [id number] - Implanted Inventory item: [employer] Sprint Quattro Secure 62cm Tripolar Screw In Extendable [id number] Model/Cat number: [id number] Serial number: [id number] Conveyor Attendant: Med[employer]onic Inc Implant Date: 08/04/2024 As of 08/04/2024 Status: Implanted Pacemaker-icd Generator Implant Site: Chest wall - subcutaneous Med[employer]onic Inc Attain Stability Quad Mri Surescan Active Fixation Lv Lead 88cm [id number] - [id number] - [id number] - Implanted Inventory item: [employer] ATTAIN STABILITY QUAD MRI SURESCAN ACTIVE FIXATION LV LEAD 88CM [id number] Model/Cat number: [id number] Serial number: [id number] Conveyor Attendant: [employer] Implant Date: 08/04/2024 As of 08/04/2024 Status: Implanted Pacemaker-icd Generator Implant Site: Chest wall - subcutaneous [employer] Inc Capsurefix Novus 6.2fr 2mm 52cm Bipolar Screw In Implantable Latex Free 5076-52 - [id number] - [id number] - Implanted Inventory item: [employer] Capsurefix Novus 6.2fr 2mm 52cm Bipolar Screw In Implantable Latex Free 5076-52 Model/Cat number: [id number] Serial number: [id number] Conveyor Attendant: [employer] Inc Implant Date: 08/04/2024 As of 08/04/2024 Status: Implanted Pacemaker-icd Generator Implant Site: Chest wall - subcutaneous Other - see comments [employer]onic Inc Tyrx Absorbable Antibacterial Envelope-Large 3.3x2.9in [id number] - [id number] - Implanted Inventory item: [employer] TYRX ABSORBABLE ANTIBACTERIAL ENVELOPE-LARGE 3.3X2.9IN [id number] Model/Cat number: [id number] Conveyor Attendant: Med[employer]onic Inc Lot number: [id number] As of 08/04/2024 Status: Implanted Stent Cornelius [employer] Wanda 10fr 7cm Biliary Stent [id number] - [id number] - Implanted Bile Duct Inventory item: [employer] WANDA 10FR 7CM BILIARY STENT [id number] Model/Cat number: [id number] Conveyor Attendant: [employer] Wanda Lot number: [id number] As of 09/05/2024 Status: Implanted [employer] Inc Suárez Flexi-Stent 5fr 3cm Small Pigtail Flexible .035in Stent 6551 - [id number] - Implanted Pancreas Inventory item: [employer] Suárez Flexi-stent 5fr 3cm Small Pigtail Flexible .035in Stent 6551 Model/Cat number: [id number] Conveyor Attendant: joblocal Lot number: [id number] As of 09/05/2024 Status: Implanted Type Not Specified [employer] Inc Device Closure Fibertape Sternal [place] Blunt Needle Ar-7289 - [id number] - Implanted Sternum Inventory item: [employer] Device Closure Fibertape Sternal [place] Blunt Needle AR-7289 Model/Cat number: [id number] Conveyor Attendant: ArthArsanis Lot number: [id number] Device identifier: [id number] Device identifier type: GS1 As of 07/24/2024 Status: Implanted [employer] Device Closure Fibertape Sternal [place] Cutting Needle Ar-7288 - [id number] - Implanted Sternum Inventory item: [employer] Device Closure Fibertape Sternal [place] Cutting Needle AR-7288 Model/Cat number: [id number] Conveyor Attendant: ArthArsanis Lot number: [id number] Device identifier: [id number] Device identifier type: GS1 As of 07/24/2024 Status: Implanted [employer] Plate Bone Low Profile 6 Hole H Shape Sternum Ti 115.102.06 - [id number] - Implanted Sternum Inventory item: [employer]ISEO [employer] Plate Bone Low Profile 6 Hole H Shape Sternum Ti 115.102.06 Model/Cat number: [id number] Conveyor Attendant: [employer] As of 07/24/2024 Status: Implanted [employer] Plate Bone Low Profile 6 Hole O Shape Sternum Ti 115.104.06 - [id number] - Implanted Sternum Inventory item: [employer] Plate Bone Low Profile 6 Hole O Shape Sternum Ti 115.104.06 Model/Cat number: [id number] Conveyor Attendant: [employer] As of 07/24/2024 Status: Implanted [employer] Screw Bone Slf Drl Full Thread Locking 3.5x14mm Ti 100.035.14 - [id number] - Implanted Sternum Inventory item: [employer] Screw Bone Slf Drl Full Thread Locking 3.5x14mm Ti 100.035.14 Model/Cat number: [id number] Conveyor Attendant: [employer] As of 07/24/2024 Status: Implanted [employer] Screw Bone Slf Drl Full Thread Locking 3.5x16mm Ti 100.035.16 - [id number] - Implanted Sternum Inventory item: [employer] Screw Bone Slf Drl Full Thread Locking 3.5x16mm Ti 100.035.16 Model/Cat number: [id number] Conveyor Attendant: [employer] As of 07/24/2024 Status: Implanted [place] [employer] [place] Distal Marker Radiology Stainless Steel Sterile Amgm-D - [id number] - Implanted Heart Inventory item: [employer] [place] Distal Marker Radiology Stainless Steel Sterile AMGM-D Model/Cat number: [id number] Conveyor Attendant: B[employer]ckr Lot number: [id number] Device identifier: [id number] Device identifier type: HIBC As of 07/24/2024 Status: Implanted General Precautions (If Blank, None Found): Weight Bearing Restrictions: No Weight Bearing Restrictions: No Isolation Status: No active isolations Nutritional Status and in-house recommendations: Dietary Orders (From admission, onward) Start Ordered 09/06/24 1103 Adult Diet Restricted; Fat Controlled Diet effective now Question Answer Comment ([facility]) Diet type Restricted Fat / Sodium Restriction: Fat Controlled 09/06/24 1102 Anticoagulation Indication: INR: No results found for requested labs within last 30 days. Warfarin Administrations (last 168 hours) None Oxygen Status: O2 Therapy for the past 12 hrs: O2 Therapy 09/07/24 0413 None (Room air) 09/06/24 2355 None (Room air) Wound Care Instructions Wound 09/04/24 Incision Abdomen (Active) Dressing Status Leaking;Saturated;Changed 09/07/24829 Site Assessment Color appropriate for ethnicity 09/06/242119 Shape & Pattern Circular 09/06/24821 Becca-wound Assessment Dry;Intact 09/07/24829 Dressing ABD;Gauze 09/07/24829 Closure Approximated;Wound glue 09/07/24829 Wound 09/04/24 Incision Abdomen (Active) Dressing Status Leaking;Saturated;Changed 09/07/24829 Site Assessment Color appropriate for ethnicity 09/06/242119 Shape & Pattern Circular 09/06/24821 Becca-wound Assessment Dry;Intact 09/07/24829 Dressing ABD;Gauze 09/07/24829 Closure Approximated;Wound glue 09/07/24829 Other Instructions Ambulatory referral to Home Health Service Line: Home Health Primary disciplines requested: Physical Therapy Secondary disciplines requested: Occupational Therapy Home Health Services: Therapy to Eval/Tx Therapy instructions: Evaluation/treatment ADL/ ladl management Requested Start of Care Date: 24-48 hours Physician to follow patient's care (the person listed here will be responsible for signing ongoing orders): PCP I attest that I or another qualified licensed provider saw the patient 90 days prior to or 30 days post admission and this face to face encounter meets the necessary Home Health requirements. The face to face encounter occurred on (date): 09/06/2024 The encounter with the patient was in whole, or in part, for the following medical condition, whichis the primary reason for home health care. (List medical condition): CAD s/p CABG, acute cholecystitis s/p cholecystectomy I certify that, based on my findings, the following services are medically necessary skilled home health services: Therapy to Eval/Tx Clinical findings that support the need for home care: Frequent falls requiring safety eval/therapy I certify that my clinical findings support patient's homebound status. Homebound criteria met because: Requires assistance of another to leave home safely Abnormal gait/unsteady balance resulting in fall risk Call provider for: increased temperature -Temperature greater than 101 degrees F Call provider for: nausea, vomiting, diarrhea -If you have persistent nausea, vomiting or diarrhea that does not stop Call provider for: redness, tenderness, or signs of infection (pain, swelling, redness, odor or green/yellow discharge around incision site) Call provider for: severe uncontrolled pain Call provider for: any other concerns or questions Call provider if: you feel dizzy, very tired or like you may faint Care Instructions: If you have surgical glue, leave on. It will fall off in 1-2 weeks. If you have a dressing, Remove outer dressing 2 days after surgery. Leave steri strips for 1 week Care Instructions: No tub baths -No tub baths, whirlpools or swimming until your provider says it's ok. Care Instructions: Shower -You may shower post op day 1 Discharge instructions Take amoxicillin/clavulanic acid (Augmentin) for 5 more days to complete treatment of gallbladder infection. Continue wound care as instructed by Surgery. Active LDAs (If Blank, None Found): Peripheral IV 09/05/24 22 G Posterior;Right Hand (Active) Placement Date/Time: 09/05/241706 Size (Gauge): 22 G Location Orientation: Posterior;Right Location: Hand Site Prep: Chlorhexidine Local Anesthetic: None Inserted by: NAVIN Cox Insertion attempts: 1 Patient Tolerance: Tolerated well Patient Emergency Contact: Primary Emergency Contact: Jeremy Fink Immunization Status at Discharge There is no immunization history on file for this patient. Giovanny Garcia MD documented in this encounter Medications at Time of Discharge albuterol HFA (PROVENTIL HFA,VENTOLIN HFA,PROAIR HFA) 90 mcg/actuation inhaler Inhale 2 puffs every 6 (six) hours as needed for wheezing ammonium lactate (AMLACTIN) 12 % creamIndications: Dry Skin Apply 1 Application topically as needed for dry skin 02/11/2024 aspirin 81 mg enteric coated tablet Take 1 tablet (81 mg total) by mouth daily atorvastatin (LIPITOR) 80 mg tablet Take 1 tablet (80 mg total) by mouth daily 08/12/2024 bumetanide (BUMEX) 1 mg tablet Take 0.5 tablets (0.5 mg total) by mouth 06/07/2024 carboxymethylcell -glycerin,PF, 0.5-0.9 % dropsIndications: Dry Eye Administer 1 drop into affected eye(s) as needed (Dry eyes) 05/12/2024 carvediloL (COREG) 3.125 mg tablet Take 1 tablet (3.125 mg total) by mouth 2 (two) times a day with meals 08/17/2024 clopidogreL (PLAVIX) 75 mg tablet Take 1 tablet (75 mg total) by mouth daily 08/12/[address] (CYMBALTA) 60 mg capsule Take 1 capsule (60 mg total) by mouth every morning HYDROcodone-aceta minophen (NORCO) 5-325 mg per tabletIndications :Pain Take 1 tablet by mouth every 6 (six) hours as needed for pain 15 tablet 09/07/2024 isosorbide mononitrate ER (IMDUR) 30 mg 24 hr tablet Take 0.5 tablets (15 mg total) by mouth daily 08/12/2024 5 magnesium oxide (MAG-OX) 400 mg (241.3 mg elemental magnesium) tablet Take 2 tablets (800 mg total) by mouth 2 (two) times a day 08/11/2024 MULTIVITAMIN ORAL Take 1 tablet by mouth every morning omeprazole (PriLOSEC) 20 mg capsule Take 1 capsule (20 mg total) by mouth every morning pregabalin (LYRICA) 100 mg capsule Take 1 capsule (100 mg total) by mouth 2 (two) times a day 08/11/2024 5 amoxicillin-clavu lanate (AUGMENTIN) 875-125 mg per tabletIndications :Abdominal/Pelvic Infection Take 1 tablet (875 mg of amoxicillin total) by mouth 2 (two) times a day for 11 doses 11 tablet 09/07/2024 4 documented as of this encounter Ordered Prescriptions Prescription Sig Dispense Quantity Refills Last Filled Start Date End Date HYDROcodone-acetam inophen (NORCO) 5-325 mg per tabletIndications: Pain Take 1 tablet by mouth every 6 (six) hours as needed for pain 15 tablet 09/07/2024 amoxicillin-clavul anate (AUGMENTIN) 875-125 mg per tabletIndications: Abdominal/Pelvic Infection Take 1 tablet (875 mg of amoxicillin total) by mouth 2 (two) times a day for 11 doses 11 tablet 09/07/2024 4 documented in this encounter Discharge Disposition Disposition Code Departure Means Destination Comment s Discharge to home or self care documented in this encounter Progress Notes * Diana Larios PA - 09/07/2024 11:15 AM CDT General Surgery Progress Note 09/07/2024 Patient: Abiel Fink 74 y.o. male Date of : 1950 Primary Physician: Juan Retana MD Attending Provider: Giovanny Garcia MD Admission Date: 09/01/2024 Length of Stay: 6 OBJECTIVE CURRENT MEDICATIONS Scheduled Medications Continuous Medications PRN Medications amoxicillin-clavulanate, 875 mg of amoxicillin, oral, BID aspirin, 81 mg, oral, Daily atorvastatin, 80 mg, oral, Daily bumetanide, 0.5 mg, oral, Daily carvediloL, 3.125 mg, oral, BID with meals (bkfst, dinner) DULoxetine DR, 60 mg, oral, QAM enoxaparin, 40 mg, subcutaneous, Daily-2100 isosorbide mononitrate ER, 15 mg, oral, Daily pantoprazole DR, 40 mg, oral, Daily pregabalin, 100 mg, oral, BID sodium chloride 0.9%, 0.5-20 mL, intra-catheter, Q8H HILDA sodium chloride 0.9%, 0.5-20 mL, intra-catheter, Q8H HILDA Continuous Medications Medication Dose Last Rate acetaminophen albuterol HFA bisacodyl EC OR bisacodyL sodium chloride 0.9% sodium chloride 0.9% HYDROcodone-acetaminophen HYDROmorphone ondansetron ODT OR ondansetron polyethylene glycol sodium chloride 0.9% sodium chloride 0.9% INTAKE & OUTPUT I/O last 2 completed shifts: In: 585 [P.O.:585] Out: 580 [Urine:210; Drains:370] I/O this shift: In: 120 [P.O.:120] Out: 90 [Drains:90] VITAL SIGNS Vitals: 09/06/24 1959 09/06/24 2355 09/07/24 0413 09/07/24 0819 BP: 145/67 107/59 116/60 128/70 BP Location: Right arm Right arm Right arm Right arm Patient Position: HOB 30 degrees;Lying HOB 30 degrees;Lying HOB 30 degrees;Lying Sitting Pulse: 57 63 59 62 Resp: 18 18 16 18 Temp: 36.3 ??C (97.3 ??F) 36.3 ??C (97.3 ??F) 36 ??C (96.8 ??F) TempSrc: Temporal Temporal Temporal SpO2: 100% 96% 96% 97% Weight: Height: Temp Min: 36 ??C (96.8 ??F) Max: 36.3 ??C (97.3 ??F) Pulse Min: 57 Max: 68 BP Min: 107/59 Max: 145/67 Resp Min: 16 Max: 18 SpO2 Min: 93 % Max: 100 % PHYSICAL EXAM Constitutional: Alert. Cooperative. Psych: normal affect, mood, judgement Neurologic: Spontaneously moves all extremities. No focal deficits. HEENT: Normocephalic. Atraumatic. Chest: Normal respirations on RA. Symmetrical chest rise Abdomen: soft, nondistended, and incision is clean, dry, intact, with no sign of infection. CINTIA drain full serosang fluids. Extremities: No peripheral edema DIAGNOSTICS Recent Labs Lab Units 09/07/24 0620 09/06/24 1232 09/05/24 0640 09/04/24 0529 WBC K/cumm 6.9 6.0 7.1 4.9 HEMOGLOBIN g/dL 8.6* 7.7* 10.0* 7.6* HEMATOCRIT % 29.5* 25.7* 34.3* 26.2* PLATELETS K/cumm 173 156 185 192 Recent Labs Lab Units 09/07/24 0620 09/06/24 1232 09/05/24 0527 09/04/24 0529 09/03/24 0633 09/02/24 0938 SODIUM mmol/L 135 145 139 139 < > -- POTASSIUM PLASMA mmol/L 4.1 3.6 4.3 3.3 < > -- MAGNESIUM mg/dL -- -- -- -- -- 1.9 PHOSPHORUS PLASMA mg/dL 3.2 3.1 4.4 3.3 < > 2.5 CHLORIDE mmol/L 104 107 105 106 < > -- CO2 mmol/L 19* 18* 22 22 < > -- ANIONGAP mmol/L 12 20* 12 11 < > -- BUN SERUM mg/dL 24 20 12 11 < > -- CREATININE mg/dL 1.11 1.09 0.83 0.81 < > -- CALCIUM mg/dL 7.6* 7.4* 8.3* 8.0* < > -- ALBUMIN g/dL 2.4* 2.7* 3.1* 2.8* < > -- ALK PHOS Units/L 156* 145* 175* 176* < > -- ALT Units/L 20 21 24 23 < > -- AST Units/L 38 35 42 45 < > -- BILIRUBIN TOTAL mg/dL 0.3 0.3 0.5 0.4 < > -- < > = values in this interval not displayed. Recent Labs Lab Units 09/07/24 0620 09/06/24 1232 09/06/24 0633 09/05/24 1302 09/05/24 0841 09/05/24 0527 09/05/24 0429 09/04/24 2346 09/04/24201109/04/24 1533 GLUCOSE mg/dL 111 123 -- -- -- 139 -- -- -- -- POC GLUCOSE MONITOR mg/dL -- -- 141 164 142 -- 164 147 152 139 Lab Results Component Value Date INR 1.44 (H) 07/24/2024 ASSESSMENT & PLAN Principal Problem: Acute cholecystitis Active Problems: Coronary artery disease with history of myocardial infarction without history of CABG Coronary artery disease due to calcified coronary lesion Complete heart block (CMS/HCC) (HCC) DM2 (diabetes mellitus, type 2) (HCC) Biventricular cardiac pacemaker in situ 74 y.o. male admitted on 09/01/2024 Length of Stay: 6 Surgeries: 09/05/2024: ENDO ENDOSCOPIC RETROGRADE CHOLANGIOPANCREATOGRAPHY WITH STENT PLACEMENT, ENDO ADD ON ENDOSCOPIC RETROGRADE CHOLANGIOPANCREATOGRAPHY WITH STENT PLACEMENT with Rajwinder Tobias MD Interval History: No acute events overnight. Doing well overall today. VSS. Today's labs were reviewed. No sign of infection or bleeding. Afebrile. Tolerating diet. # Acute cholecystitis secondary to cholelithiasis s/p Laparoscopic subtotal fenestrated cholecystectomy 09/04 Abdominal incisions are clean, dry, and intact without dehiscence, cellulitis, or drainage. CINTIA drain with serosanguinous output ~250. Removed on rounds today. Pain control: adequate. Reports continued abdominal pain. Continue current regimen. Nutrition: Adult Diet Restricted; Fat Controlled Cultures negative. WBC down to 6.9. afebrile. DC on PO abx for a total of 10 days postop. Follow up in clinic in 2 weeks. # Other Stress ulcer ppx: Protonix. Resp: On RA. Encouraged pulmonary toilet, IS, early ambulation VTE ppx: Encouraged OOB & sequential compression device use. Blood thinners: Lovenox. PT Dispo Recommendation: PT Recommendation/Plan: (S) Home with 24 hour supervision, Home Health PT OT Dispo Recommendation: OT Recommendation: (S) Home with intermittent assist No objection to DC today from a gen surgery standpoint. Follow up in 2 weeks. Follow up instructions provided. Care plan discussed with the patient. Patient was seen/examined/discussed with Dr. Ever Anton today. HATTIE Pang 09/07/2024 11:16 AM Cosigned by Ever Anton MD at 09/07/2024 12:34 PM CDT Associated attestation - Ever Anton MD - 09/07/2024 12:34 PM CDT Patient seen and examined with HATTIE Thompson. Agree with assessment and plan. Please see her note. He is doing great, he is sitting up in a chair, tolerating a diet, abdomen is soft, incisions are clean, drain is serosanguineous. DC drain, no objection to discharge from surgical perspective. Ever Anton MD, [facility] [employer] Department of Surgery [facility], Division of General Surgery 09/07/2024 12:34 PM * Cami Cruz OT - 09/07/2024 8:53 AM CDT Occupational Therapy 09/07/24 0819 General Session Type Treatment OT Received On 09/07/24 Safe Environment Arm band checked;Patient found in supine;Gait belt utilized for all out of bed mobility Subjective Agreeable to Therapy Subjective Comment I'm hoping that I get to go home today. Pt otherwise w/o complaint at this time. Family/Caregiver Present No Precautions Precautions Fall risk;Bed/Chair Alarm Weight Bearing Restrictions No Precaution Comments Pt is reminded to call nursing if/when he needs anything. Demonstrates understanding. Pain Assessment Pain Assessment No/denies pain Pain Score 0 - No pain Patient's Stated Pain Goal No pain Clinical Progression Not changed Grooming Grooming: Where assessed Standing at sink Grooming: Level of assistance Standby Assist Grooming: Assistance with Increased time to complete;Standing with assistive device;Wash/dry hands;Wash/dry face LE Dressing LE Dressing: Where assessed Edge of bed LE Dressing: Level of assistance Minimum Assist LE Dressing: Assistance with Thread RLE into pants;Thread LLE into pants;Requires assistive device for steadying;Increased time to complete Toileting Toileting: Where assessed (declines need) Bed Mobility Bed Mobility Yes Bed Mobility 1 Bed Mobility From 1 Supine Bed Mobility Type 1 To Bed Mobility to 1 Edge of bed Level of Assistance 1 Standby Assist Bed Mobility Comments 1 Pt with good safety awareness noted t/o transfer. Transfers Transfer Yes Transfer 1 Transfer From 1 Stand Transfer Type 1 To and from Transfer to 1 Toilet Technique 1 Stand pivot;Sit to stand Therapeutic Exercise - ROM/STRENGTH ROM/STRENGTH (Cane ex x 3 planes x 10 reps while seated/supported.) Coordination Gross Motor WFL Fine Motor WFL Dexterity WFL OT Therapeutic Groups OT Therapeutic (Pt ambulated to/from the bathroom w/ ww and SBA provided. He also walked a short distance in the [place] to simulate home distance.) Cognition Cognition Comments Pt is pleasant and motivated to participate. He is concerned about how he will get back home when it is time to discharge. Overall Cognitive Status WFL Arousal/Alertness Alert;Appropriate responses to stimuli Orientation Oriented X4 (person, place, time, situation) Safety Judgment Good awareness of safety precautions Insight Fully aware of deficits Compliance/Behavior Easy to engage Activity Tolerance Endurance Tolerates 30 min activity with multiple rests (Pt with SOB at completion of ambulation.) Activity Tolerance Comments Pre activity: 62bpm, 97% (on RA) 128/70 Safe Environment End of Therapy Session Safe Environment End of Therapy Session Patient left in chair;Call light within reach;Overbed tablewithin reach Assessment Prognosis Good Problem List Decreased endurance;Decreased functional mobility;Decreased ADL independence;DecreasedIADL independence Barriers to Discharge None Plan Plan Continue with current plan;If this is the last note, consider this the discharge summary Recommendation/Plan OT Recommendation (S) Home with intermittent assist OT Frequency during current admission 3-5x/wk Treatment/Interventions during current admission ADL/IADL retraining;Balance Training;Functional activity;Functional mobility training;Strengthening;Therapeutic activity Progress during current admission Progressing toward goals OT Time Calculation OT Start Time 738 OT Stop Time 08 OT Time Calculation (min) 40 min Education: Patient has been educated on the role of OT, safety, precautions, ADL training, and mobility training. Education completed via verbal instruction and return demonstration. Patient verbalized understanding, demonstrated understanding, and needs ongoing reinforcement Multi-Disciplinary Problems (from Occupational Therapy) Active Problems Problem: OT Misc Start Date: 09/05/24 Goal Start Date Expected End Date End Date OT LTG 1 Pt will complete UE/LE dress modified independent. 09/05/24 09/12/24 -- Goal Start Date Expected End Date End Date OT LTG 2 Pt will complete toileting with transfer modified independent. 09/05/24 09/12/24 -- Goal Start Date Expected End Date End Date OT LTG 3 Pt will complete bathing with transfer modified independent. 09/05/24 09/12/24 -- Goal Start Date Expected End Date End Date OT LTG 4 Pt will complete grooming modified independent. 09/05/24 09/12/24 -- * Isabella Bell NP - 09/07/2024 8:24 AM CDT Gastroenterology Daily Progress SUBJECTIVE Patient is a 74 y.o. male with chief complaint of abd pain. Reason for consult: Need for ERCP and stenting, high risk for bile leak after laparoscopic subtotalfenestrated cholecystectomy Interval History: 09/05 ERCP Patient is awake and alert, sitting up in chair. Has some mild abdominal pain. Denies nausea/vomiting. Tolerating low fat diet. +BM. OBJECTIVE Vitals: 24hr Min/Max: Temp Min: 36 ??C (96.8 ??F) Max: 36.3 ??C (97.3 ??F) Pulse Min: 57 Max: 68 BP Min: 107/59 Max: 145/67 Resp Min: 16 Max: 18 SpO2 Min: 93 % Max: 100 % Most Recent : Vitals: 09/07/24818 BP: 128/70 Pulse: 62 Resp: 18 Temp: 36 ??C (96.8 ??F) SpO2: 97% Physical Exam: General-Awake & Alert GI-Abd soft, generalized tenderness to palpation. +BS, Lap sites well- approximated, CINTIA with serous sanguinous appearing output. Lab/Radiology/Diagnostic Review: Recent Labs Lab Units 09/07/24 0620 09/06/24 1232 09/05/24 0640 WBC K/cumm 6.9 6.0 7.1 HEMOGLOBIN g/dL 8.6* 7.7* 10.0* HEMATOCRIT % 29.5* 25.7* 34.3* PLATELETS K/cumm 173 156 185 Recent Labs Lab Units 09/07/24 0620 09/06/24 1232 09/06/24 0633 09/05/24 0841 09/05/24 0527 SODIUM mmol/L 135 145 -- -- 139 POTASSIUM PLASMA mmol/L 4.1 3.6 -- -- 4.3 CHLORIDE mmol/L 104 107 -- -- 105 CO2 mmol/L 19* 18* -- -- 22 ANIONGAP mmol/L 12 20* -- -- 12 GLUCOSE mg/dL 111 123 -- -- 139 POC GLUCOSE MONITOR mg/dL -- -- 141 < > -- BUN SERUM mg/dL 24 20 -- -- 12 CREATININE mg/dL 1.11 1.09 -- -- 0.83 CALCIUM mg/dL 7.6* 7.4* -- -- 8.3* ALBUMIN g/dL 2.4* 2.7* -- -- 3.1* ALK PHOS Units/L 156* 145* -- -- 175* ALT Units/L 20 21 -- -- 24 AST Units/L 38 35 -- -- 42 BILIRUBIN TOTAL mg/dL 0.3 0.3 -- -- 0.5 < > = values in this interval not displayed. No results found for: LIPASE 09/02 US IMPRESSION: 1. Gallbladder sludge with nonspecific wall thickening. No pericholecystic fluid or sonographic Rothman sign. Normal appearance of the biliary system. 2. Cirrhotic liver with perihepatic ascites. Patent portal vein with appropriate directional flow. 09/05 ERCP - A leak was found from the gallbladder. Treated with biliary sphincterotomy and the placement of aplastic stent. - Pancreas divisum was found. A protective pancreatic duct stent was placed to reduce the risk of post ERCP pancreatitis. ASSESSMENT/PLAN 74yo with history coronary artery disease, recent CABG & pacemaker placement who presented withabdominal pain. 09/04 had laparoscopic subtotal fenestrated cholecystectomy for treatment of acute gangrenous perforated cholecystitis. 09/05 ERCP impression noted above. Biliary sphincterotomy and stenting performed. Migratory PD stent placed. -WBC normal, afebrile -Hgb 8.6, transfused I unit PRBCs on 09/04 -Tbili remains normal, LFT's normal with exception of alk phos, 156 09/02 BC x 2 -NGTD, 09/04 bile culture - NGTD -OK to restart Plavix and ASA today from GI perspective -on Augmentin -low fat diet as tolerated - Repeat ERCP in 3 months to remove stent. - KUB in 14 days to assess for pancreatic duct stent passage. If still in place schedule EGD for removal. -GI/Biliary to sign off, please call for questions or concerns. Isabella Bell NP 09/07/2024 Cosigned by John Pink MD at 09/07/2024 8:42 PM CDT * Giovanny Garcia MD - 09/06/2024 12:19 PM CDT [facility] Hospitalist Service Progress Note Chief complaint (on admission): Abd pain Subjective: Pt had no significant events overnight. Yesterday, he completed ERCP. This morning, he remains alert, comfortable, tolerating full liquids. Otherwise no new problems. Objective: Vitals and I/O Temp Min: 36.2 ??C (97.1 ??F) Max: 36.8 ??C (98.3 ??F) Pulse Min: 64 Max: 94 BP Min: 117/63 Max: 164/91 Resp Min: 9 Max: 19 SpO2 Min: 93 % Max: 100 % I/O last 2 completed shifts: In: 832 [I.V.:732; IV Piggyback:100] Out: 410 [Drains:410] Body mass index is 33.15 kg/m??. Physical Exam: General Appearance: Comfortable, cooperative Head: Normocephalic, atraumatic Lungs: Normal respiratory effort Cardiovascular: Regular rate Abdomen: Soft, nondistended +RUQ incision, CINTIA drain with serous output Extremities: No edema Skin: No new rashes, lesions or bruising Neurologic: Alert, oriented Psychosocial: Normal affect and mood Lab/Radiology/Diagnostic Review: Recent Labs Lab Units 09/05/24 0640 09/04/24 0529 09/03/24 0633 WBC K/cumm 7.1 4.9 5.2 HEMOGLOBIN g/dL 10.0* 7.6* 8.2* HEMATOCRIT % 34.3* 26.2* 28.6* Recent Labs Lab Units 09/06/24 0633 09/05/24 0841 09/05/24 0527 SODIUM mmol/L -- -- 139 POTASSIUM PLASMA mmol/L -- -- 4.3 CHLORIDE mmol/L -- -- 105 CO2 mmol/L -- -- 22 GLUCOSE mg/dL -- -- 139 POC GLUCOSE MONITOR mg/dL 141 < > -- BUN SERUM mg/dL -- -- 12 CREATININE mg/dL -- -- 0.83 CALCIUM mg/dL -- -- 8.3* ALBUMIN g/dL -- -- 3.1* ALK PHOS Units/L -- -- 175* ALT Units/L -- -- 24 AST Units/L -- -- 42 BILIRUBIN TOTAL mg/dL -- -- 0.5 < > = values in this interval not displayed. Assessment/Plan: Principal Problem: Acute cholecystitis Active Problems: Coronary artery disease with history of myocardial infarction without history of CABG Coronary artery disease due to calcified coronary lesion Complete heart block (CMS/HCC) ([facility]) DM2 (diabetes mellitus, type 2) ([facility]) Biventricular cardiac pacemaker in situ # Acute gangrenous cholecystitis Went to OR with Dr. Anton 09/05 - found gangrenous gallbladder, converted to open incision. S/p ERCP 09/06. - advance to low fat diet today - finish Zosyn today, transition to Augmentin tomorrow for 5 more days - monitor abd drain for bilious output, consider removal per Surgery # CAD, recent CABG and pacemaker placement S/p CABG on 07/[address] Mckee at the [facility]. Seen by Cardiology on 09/02, no active cardiac problems at this time. Discussed with therapy: pt is now 6 weeks out from surgery and can be off sternal precautions - continue aspirin 81, atorvastatin 80, Bumex 0.5, Coreg 2.125 BID, Imdur 15 # T2DM with neuropathy - continue Lyrica, Cymbalta, SSI, adjust as needed Disposition Planning Full Code Pending diet tolerance Therapy recommends discharge home with home health - will need to coordinate with [facility], as well as transportation back to [place] Plan for dc home tomorrow if arrangements completed Medical decision-making: moderate complexity Giovanny Garcia MD * Pam Zhang, PT - 09/06/2024 10:10 AM CDT Images from the original note were not included. Physical Therapy Evaluation 09/06/24 1010 General Chart Reviewed Yes Session Type Evaluation PT Received On 09/06/24 Safe Environment Arm band checked Subjective Agreeable to Therapy Subjective Comment Pt agreeable. Additional Pertinent History 74 y/o M admitted to [facility] for acute abdominal pain. Found to have inflammed gallbladder now s/p laparoscopic cholecystectomy on 09/04 and ERCP on 09/05. Pt with CABG 07/24and and pacer placement at [facility]. Other medical evaluation ongoing. Medical history significant for asthma, diabetes, hiatal hernia, hypertension, sleep apnea, coronary artery disease with bradycardia,complete heart block. Family/Caregiver Present No Physical Therapy-Patient Goal go home and be able to drive Precautions Precautions Fall risk;Bed/Chair Alarm;Drains;Abdominal Precaution Comments (S) Per chat with pt's Cardiothoracic Surgeron Dr. Salas, sternal precautionsx 6 weeks. Pt's surgery was 07/24 and 6 weeks ended on 09/04 Home Living Type of Home House Home Layout One level;Basement;Able to live on main level with bedroom/bathroom (avoids basement) Home Access Stairs to enter with rails Entrance Stairs-Rails Both Entrance Stairs-Number of Steps 3 Home Mobility Equipment-Currently Using Rollator;Single point cane Additional Comments Plans in place tgo get ramp and walk in shower built Prior Function Level of [place] Independent with ADLs;Independent functional transfers;Independent with ambulation;Needs assistance with homemaking Lives With Son Receives Help From Family;Friend(s) (Son is available 31/05 but does not drive; Friends will assist with driving.) Driving Yes (not since heart surgery) Vocational/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 Occasional use of rollator in the home. Pain Assessment Pain Assessment 0-10 Pain Score 2 Pain Type Chronic pain Pain Location Back (Lumbar) Pain Descriptors Aching Clinical Progression Resolved Pain Interventions Repositioned;Rest Multiple Pain Sites Two Pain 2 Pain Score 2 0 - No pain Pain Type 2 Surgical pain Pain Location 2 Abdomen Pain Orientation 2 Right Pain Frequency 2 Intermittent Pain Onset 2 Progressive Clinical Progression 2 Rapidly worsening (07/18 with activity) Cognition Arousal/Alertness Alert Orientation Oriented X4 (person, place, time, situation) Compliance/Behavior Easy to engage Sensation Light Touch WFL Balance Tests Balance Tests (Pt ambulates at average gait speed of 0.48 meters/second indicating intervention needed to reduce risk of falls) Static Sitting Balance Static Sitting-Level of Assistance Close supervision Static Standing Balance Static Standing-Level of Assistance Minimum assistance;Close supervision Static Standing-Comment/# of Minutes minimum assistx 1 with straight cane; SBA x 1 with rollator Dynamic Standing Balance Dynamic Standing-Level of Assistance Minimum assistance;Close supervision Dynamic Standing-Comments minimum assistx 1 with straight cane; SBA x 1 with rollator Bed Mobility 1 Bed Mobility Comments 1 not observed ; already in chair Transfer 1 Trials/Comments 1 sit to/from stand with straight cand and SBA x 1 with heavy reliance on UEs and several attempts to be successful ; Transfers 2 Trials/Comments 2 sit to/from stand from chair with rollaotr SBA x 1, verbal cues for hand placement as pt reports he likes to pull up on rollator Transfers 3 Trials/Comments 3 sit to/from stand from rollator seat includinog 180 degree turn SBA x 1 Ambulation 1 Ambulation Comments 1 20 ft with straight cane and minimum assist x 1, wide base, lateral trunk andpathway sway, pt reaching out to steady himself, very rigid LEs including miniaml ankle and knee flexion ROM. 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 Pt notably more stable while wearing shoes as as well. Distances limited by SOB , fatigue and pain. RLE Assessment RLE Comments generalized functional weakness, grossly 4/5 LLE Assessment LLE Comments generalized functional weakness, grossly 4/5 PT Treatment/Exercise Comments PT Treatment/Exercise Comments Issued handouts and educated on PRETTY Dyspena scale; 1/10 at rest, 3/10 with exertion; Issued generalized strengthening HEP for LEs in seated position and verbally reviewed. Pt reports he does these exercises at home as well. Other Comments Other PT Comments Pt presents with deficits in BLE strength, balance, endurance, pain and overall mobility. Pt is at increased risk of falls and is more likely to be dependent in ADLs and IADLs as indicated by his average gait speed. Pt demos improvement in mobility while wearing shoes as well as with use of rollator vs cane. Pt appropriate for continued PT to address deficits. Recommend strict 245/7 assistance and home health upon acute care d/c . Safe Environment End of Therapy Session Safe Environment End of Therapy Session Patient left in chair;Chair alarm in place and activated;RNnotified;Call light within reach;Overbed table within reach Assessment Prognosis Good Problem List Gait deviations;Decreased strength;Decreased endurance;Impaired balance;Decreased safety awareness;Pain Barriers to Discharge Current Mobility Status Plan Plan Plan of care initiated;If this is the last note, consider this the discharge summary Recommendation/Plan PT Recommendation/Plan (S) Home with 24 hour supervision;Home Health PT Patient at high risk for Falls;Readmission PT Frequency during current admission 3-5x/wk Treatment/Interventions during current admission Balance Training;Bed mobility;Endurance training;Equipment eval/education;Functional activity;Functional transfer training;Gait training;Parent/caregiver training and education;Stair training;Strengthening;Therapeutic activity;Therapeutic exercise;Transfer training PT Evaluation Complete Yes PT Time Calculation PT Start Time 1010 PT Stop Time 1105 PT Time Calculation (min) 55 min Vitals: HR: 50-70s BP: 124/64 (79) pre treatment ; 138/79 (94) post treatment SpO2: 95-100 % on room air Pretty Dyspnea Scale: 1/10 at rest 3/10 with activity Gait Speed: 0.48 meters/second Multi-Disciplinary Problems (from Physical Therapy) Active Problems Problem: PT Misc Start Date: 09/06/24 Goal Start Date Expected End Date End Date PT [facility] 1 09/06/24 09/20/24 -- Goal Details: Pt to perform bed mobility with independence. Goal Start Date Expected End Date End Date PT [facility] 2 09/06/24 09/20/24 -- Goal Details: Pt to perform sit to/from stand and bed to/from chair with Wheeled walker or Least restrictive assistive device and Modified independent . Goal Start Date Expected End Date End Date PT [facility] 3 09/06/24 09/20/24 -- Goal Details: Pt to ambulate >/= 150 ft with Least restrictive assistive device and Modified independent Goal Start Date Expected End Date End Date PT [facility] 4 09/06/24 09/20/24 -- Goal Details: Pt to ascend/descend 2 stairs with SBA x 1 and rails and/or assistive device as needed per home set up. Goal Start Date Expected End Date End Date PT [facility] 5 09/06/24 09/20/24 -- Goal Details: Pt to complete 2 or 6 minute walk tests to further determine functional endurance deficit. Further goal set be set at that time as needed. Education: Patient has been educated on the role of PT, safety , precautions, mobility training, and home exercise program. Education completed via explanation, demonstration, and handout . Patient verbalized understanding and needs ongoing reinforcement * Ever Anton MD - 09/06/2024 9:40 AM CDT Daily Progress Note Subjective: Interval History: Lying in bed, very quiet, states he is doing okay, had ERCP yesterday with biliary stent placement. CINTIA drain drained over 100 yesterday-serosanguineous. Objective: Vitals: 09/05/24 2132 09/05/24 2342 09/06/24 0456 09/06/24 0811 BP: 139/67 117/63 126/72 123/68 BP Location: Right arm Right arm Right arm Right arm Patient Position: Lying Lying;HOB 30 degrees Pulse: 70 71 65 64 Resp: 18 16 16 16 Temp: 36.5 ??C (97.7 ??F) 36.2 ??C (97.1 ??F) TempSrc: Oral Oral Temporal SpO2: 97% 95% 94% 94% Weight: Height: Physical Exam: General Appearance: Alert, cooperative, no distress Lungs: Clear to auscultation bilaterally Cardiovascular: Regular rate and rhythm Abdomen: Soft, non-tender, nondistended Incisions clean and dry, no signs of infection CINTIA-serosanguineous Extremities: Extremities warm Assessment/Plan: Status post laparoscopic subtotal fenestrated cholecystectomy for severe gangrenous perforated cholecystitis, ERCP yesterday -drain serosanguineous, we will discontinue prior to discharge if remain non bilious, I would continue antibiotics for a total of 10 days postoperatively-okay to switch over to oral antibiotics upon discharge Advanced to low-fat diet as tolerated from surgery perspective Labs: Recent Results (from the past 24 hour(s)) POCT glucose Collection Time: 09/05/24 1:02 PM Result Value Ref Range Glucose, POC 164 70 - 199 mg/dL POCT glucose Collection Time: 09/06/24 6:33 AM Result Value Ref Range Glucose, POC 141 70 - 199 mg/dL Ever Anton MD, [facility] Department of Surgery [facility], Division of General Surgery 09/06/2024 9:41 AM * Clarissa Beckham, PHP [employer] DEVELOPER - 09/06/2024 9:25 AM CDT Gastroenterology Daily Progress SUBJECTIVE Patient is a 74 y.o. male with chief complaint of abd pain. Reason for consult: Need for ERCP and stenting, high risk for bile leak after laparoscopic subtotalfenestrated cholecystectomy Interval History: 09/05 ERCP Patient is awake and alert, sitting up in the recliner. Reports unchanged abdominal pain. Denies nausea/vomiting. Tolerating clear liquids. Passing flatus OBJECTIVE Vitals: 24hr Min/Max: Temp Min: 36.2 ??C (97.1 ??F) Max: 36.8 ??C (98.3 ??F) Pulse Min: 64 Max: 94 BP Min: 117/63 Max: 164/91 Resp Min: 9 Max: 19 SpO2 Min: 93 % Max: 97 % Most Recent : Vitals: 09/06/24 0811 BP: 123/68 Pulse: 64 Resp: 16 Temp: 36.2 ??C (97.1 ??F) SpO2: 94% Physical Exam: General-Awake & Alert GI-Abd soft, tender to palpation. +BS CINTIA with serous sanguinous appearing output. Lab/Radiology/Diagnostic Review: Recent Labs Lab Units 09/05/24 0640 09/04/24 0529 09/03/24 0633 WBC K/cumm 7.1 4.9 5.2 HEMOGLOBIN g/dL 10.0* 7.6* 8.2* HEMATOCRIT % 34.3* 26.2* 28.6* PLATELETS K/cumm 185 192 173 Recent Labs Lab Units 09/06/24 0633 09/05/24 1302 09/05/24 0841 09/05/24 0527 09/04/24 0752 09/04/24 0529 09/04/24 0001 09/03/24 0633 SODIUM mmol/L -- -- -- 139 -- 139 -- 139 POTASSIUM PLASMA mmol/L -- -- -- 4.3 -- 3.3 -- 3.5 CHLORIDE mmol/L -- -- -- 105 -- 106 -- 107 CO2 mmol/L -- -- -- 22 -- 22 -- 21* ANIONGAP mmol/L -- -- -- 12 -- 11 -- 11 GLUCOSE mg/dL -- -- -- 139 -- 115 -- 92 POC GLUCOSE MONITOR mg/dL 141 164 142 -- < > -- < > -- BUN SERUM mg/dL -- -- -- 12 -- 11 -- 13 CREATININE mg/dL -- -- -- 0.83 -- 0.81 -- 0.77* CALCIUM mg/dL -- -- -- 8.3* -- 8.0* -- 7.9* ALBUMIN g/dL -- -- -- 3.1* -- 2.8* -- 2.4* ALK PHOS Units/L -- -- -- 175* -- 176* -- 149* ALT Units/L -- -- -- 24 -- 23 -- 23 AST Units/L -- -- -- 42 -- 45 -- 43 BILIRUBIN TOTAL mg/dL -- -- -- 0.5 -- 0.4 -- 0.6 < > = values in this interval not displayed. No results found for: LIPASE 09/02 US IMPRESSION: 1. Gallbladder sludge with nonspecific wall thickening. No pericholecystic fluid or sonographic Rothman sign. Normal appearance of the biliary system. 2. Cirrhotic liver with perihepatic ascites. Patent portal vein with appropriate directional flow. 09/05 ERCP - A leak was found from the gallbladder. Treated with biliary sphincterotomy and the placement of a plastic stent. - Pancreas divisum was found. A protective pancreatic duct stent was placed to reduce the risk of post ERCP pancreatitis. ASSESSMENT/PLAN 74yo with history coronary artery disease, recent CABG & pacemaker placement who presented withabdominal pain. Found to have acute cholecystitis and 09/04 had laparoscopic subtotal fenestrated cholecystectomy for treatment of acute gangrenous perforated cholecystitis. GI has been consulted forstent placement since patient at high risk for a bile leak. 09/05 ERCP impression noted above. Biliary sphincterotomy and stenting performed. Migratory PD stent placed. Afebrile, CBC & LFTs pending 09/05 Hemoglobin 10.0, transfused 1 unit of PRBCs on 09/04 09/02 Blood Cxs-NGTD 09/04 bile culture-preliminary result, no organisms seen/NGTD -Plavix & ASA remain on hold. Ok to restart tomorrow from GI perspective. -full liquid diet, ADAT - Repeat ERCP in 3 months to remove stent. - KUB in 14 days to assess for pancreatic duct stent passage. If still in place schedule EGD for removal. Clarissa Beckham NP 09/06/2024 This note was transcribed using [employer] Speech Recognition software. As a result, there may be unintended grammar and spelling errors. Every attempt is made to have correct dictation. If there are any questions or major errors, please contact me. Cosigned by John Pink MD at 09/06/2024 7:26 PM CDT * Giovanny Garcia MD - 09/05/2024 1:45 PM CDT [facility] Hospitalist Service Progress Note Chief complaint (on admission): Abd pain Subjective: Pt had no significant events overnight. This morning, he is alert, comfortable, reports mild stable incisional pain, otherwise no new problems. Respiration at baseline. Objective: Vitals and I/O Temp Min: 36.2 ??C (97.1 ??F) Max: 37 ??C (98.6 ??F) Pulse Min: 73 Max: 83 BP Min: 117/65 Max: 159/75 Resp Min: 15 Max: 24 SpO2 Min: 92 % Max: 100 % I/O last 2 completed shifts: In: 2510.5 [P.O.:300; I.V.:690.5; Blood:250; IV Piggyback:1270] Out: 1385 [Urine:785; Drains:500; Blood:100] Body mass index is 33.15 kg/m??. Physical Exam: General Appearance: Comfortable, cooperative Head: Normocephalic, atraumatic Lungs: Normal respiratory effort Cardiovascular: Regular rate Abdomen: Soft, nondistended +RUQ incision, CINTIA drain Extremities: No edema Skin: No new rashes, lesions or bruising Neurologic: Alert, oriented Psychosocial: Normal affect and mood Lab/Radiology/Diagnostic Review: Recent Labs Lab Units 09/05/24 0640 09/04/24 0529 09/03/24 0633 WBC K/cumm 7.1 4.9 5.2 HEMOGLOBIN g/dL 10.0* 7.6* 8.2* HEMATOCRIT % 34.3* 26.2* 28.6* Recent Labs Lab Units 09/05/24 1302 09/05/24 0841 09/05/24 0527 SODIUM mmol/L -- -- 139 POTASSIUM PLASMA mmol/L -- -- 4.3 CHLORIDE mmol/L -- -- 105 CO2 mmol/L -- -- 22 GLUCOSE mg/dL -- -- 139 POC GLUCOSE MONITOR mg/dL 164 < > -- BUN SERUM mg/dL -- -- 12 CREATININE mg/dL -- -- 0.83 CALCIUM mg/dL -- -- 8.3* ALBUMIN g/dL -- -- 3.1* ALK PHOS Units/L -- -- 175* ALT Units/L -- -- 24 AST Units/L -- -- 42 BILIRUBIN TOTAL mg/dL -- -- 0.5 < > = values in this interval not displayed. Assessment/Plan: Principal Problem: Acute cholecystitis Active Problems: Coronary artery disease with history of myocardial infarction without history of CABG Coronary artery disease due to calcified coronary lesion Complete heart block (CMS/HCC) ([facility]) DM2 (diabetes mellitus, type 2) ([facility]) Biventricular cardiac pacemaker in situ # Acute gangrenous cholecystitis Went to OR with Dr. Anton 09/05 - found gangrenous gallbladder, converted to open incision. - planned for ERCP today for stent placement, due to high risk of bile leak. - continue Zosyn for now, will discuss with Surgery about preferred duration - advance diet pet GI or Surgery - drain management and wound care per Surgery # CAD, recent CABG and pacemaker placement Seen by Cardiology on 09/02, no active cardiac problems at this time - continue aspirin 81, atorvastatin 80, Bumex 0.5, Coreg 2.125 BID, Imdur 15 # T2DM with neuropathy - continue Lyrica, Cymbalta, SSI, adjust as needed Disposition Planning Full Code Pending ERCP, diet tolerance Expect dc in 2-3 days, may need rehab referral - PT/OT evaluation Medical decision-making: moderate complexity Giovanny Garcia MD * Sonja Aguilera PA - 09/05/2024 1:39 PM CDT General Surgery Progress Note 09/05/2024 Patient: Abiel Fink 74 y.o. male Date of : 1950 Primary Physician: Juan Retana MD Attending Provider: Giovanny Garcia MD Admission Date: 09/01/2024 Length of Stay: 4 OBJECTIVE CURRENT MEDICATIONS Scheduled Medications Continuous Medications PRN Medications [Held by Provider] aspirin, 81 mg, oral, Daily [Transfer Hold] atorvastatin, 80 mg, oral, Daily [Transfer Hold] bumetanide, 0.5 mg, oral, Daily [Transfer Hold] carvediloL, 3.125 mg, oral, BID with meals (bkfst, dinner) [Transfer Hold] DULoxetine DR, 60 mg, oral, QAM [Transfer Hold] enoxaparin, 40 mg, subcutaneous, Daily-2100 [Transfer Hold] isosorbide mononitrate ER, 15 mg, oral, Daily [Transfer Hold] pantoprazole DR, 40 mg, oral, Daily [Transfer Hold] piperacillin-tazobactam, 3.375 g, intravenous, Q6H HILDA [Transfer Hold] pregabalin, 100 mg, oral, BID [Transfer Hold] sodium chloride 0.9%, 0.5-20 mL, intra-catheter, Q8H HILDA [Transfer Hold] sodium chloride 0.9%, 0.5-20 mL, intra-catheter, Q8H HILDA Continuous Medications Medication Dose Last Rate [Transfer Hold] acetaminophen [Transfer Hold] albuterol HFA [Transfer Hold] bisacodyl EC OR [Transfer Hold] bisacodyL [Transfer Hold] sodium chloride 0.9% [Transfer Hold] sodium chloride 0.9% [Transfer Hold] HYDROcodone-acetaminophen [Transfer Hold] HYDROmorphone [Transfer Hold] ondansetron ODT OR [Transfer Hold] ondansetron [Transfer Hold] polyethylene glycol [Transfer Hold] sodium chloride 0.9% [Transfer Hold] sodium chloride 0.9% INTAKE & OUTPUT I/O last 2 completed shifts: In: 2510.5 [P.O.:300; I.V.:690.5; Blood:250; IV Piggyback:1270] Out: 1385 [Urine:785; Drains:500; Blood:100] I/O this shift: In: 162.5 [I.V.:62.5; IV Piggyback:100] Out: 90 [Drains:90] VITAL SIGNS Vitals: 09/05/24 0027 09/05/24 0419 09/05/24 0844 09/05/24 1224 BP: 132/61 142/72 127/81 145/72 BP Location: Right arm Right arm Right arm Right arm Patient Position: Lying;HOB 30 degrees Lying;HOB 30 degrees Lying;HOB 30 degrees Lying Pulse: 74 73 79 77 Resp: 20 20 18 18 Temp: 36.7 ??C (98 ??F) 36.4 ??C (97.6 ??F) 37 ??C (98.6 ??F) 36.8 ??C (98.3 ??F) TempSrc: Axillary Axillary Oral Oral SpO2: 93% 93% 95% 93% Weight: Height: Temp Min: 36.2 ??C (97.1 ??F) Max: 37 ??C (98.6 ??F) Pulse Min: 73 Max: 83 BP Min: 117/65 Max: 159/75 Resp Min: 15 Max: 24 SpO2 Min: 92 % Max: 100 % PHYSICAL EXAM Constitutional: Alert. Cooperative. Psych: normal affect, mood, judgement Neurologic: Spontaneously moves all extremities. No focal deficits. HEENT: Normocephalic. Atraumatic. Chest: Normal respirations on RA. Symmetrical chest rise Abdomen: soft, nondistended, and incision is clean, dry, intact, with no sign of infection Extremities: No peripheral edema DIAGNOSTICS Recent Labs Lab Units 09/05/24 0640 09/04/24 0529 09/03/24 0633 09/02/24 0611 WBC K/cumm 7.1 4.9 5.2 5.8 HEMOGLOBIN g/dL 10.0* 7.6* 8.2* 7.9* HEMATOCRIT % 34.3* 26.2* 28.6* 27.3* PLATELETS K/cumm 185 192 173 186 Recent Labs Lab Units 09/05/24 0527 09/04/24 0529 09/03/24 0633 09/02/24 0938 09/02/24 0611 SODIUM mmol/L 139 139 139 -- 140 POTASSIUM PLASMA mmol/L 4.3 3.3 3.5 -- 3.5 MAGNESIUM mg/dL -- -- -- 1.9 -- PHOSPHORUS PLASMA mg/dL 4.4 3.3 2.8 2.5 2.3 CHLORIDE mmol/L 105 106 107 -- 106 CO2 mmol/L 22 22 21* -- 21* ANIONGAP mmol/L 12 11 11 -- 13 BUN SERUM mg/dL 12 11 13 -- 14 CREATININE mg/dL 0.83 0.81 0.77* -- 0.74* CALCIUM mg/dL 8.3* 8.0* 7.9* -- 7.7* ALBUMIN g/dL 3.1* 2.8* 2.4* -- 2.7* ALK PHOS Units/L 175* 176* 149* -- 146* ALT Units/L 24 23 23 -- 23 AST Units/L 42 45 43 -- 38 BILIRUBIN TOTAL mg/dL 0.5 0.4 0.6 -- 0.7 Recent Labs Lab Units 09/05/24 1302 09/05/24 0841 09/05/24 0527 09/05/24 0429 09/04/24 2346 09/04/24 2012 09/04/24 1533 09/04/24 1237 09/04/24 0752 09/04/24 0529 GLUCOSE mg/dL -- -- 139 -- -- -- -- -- -- 115 POC GLUCOSE MONITOR mg/dL 164 142 -- 164 147 152 139 107 107 -- Lab Results Component Value Date INR 1.44 (H) 07/24/2024 ASSESSMENT & PLAN Principal Problem: Acute cholecystitis Active Problems: Coronary artery disease with history of myocardial infarction without history of CABG Coronary artery disease due to calcified coronary lesion Complete heart block (CMS/HCC) (HCC) DM2 (diabetes mellitus, type 2) (HCC) Biventricular cardiac pacemaker in situ 74 y.o. male admitted on 09/01/2024 Length of Stay: 4 Surgeries: 09/05/2024: ERCP with Milton Tobias MD Interval History: No acute events overnight. Doing well overall today. Reports continued abdominal pain. VSS. Today's labs were reviewed-- Hgb 10.0, WBC 7.1, renal function is stable. No sign of infection or bleeding. Afebrile. # Acute cholecystitis secondary to cholelithiasis s/p Laparoscopic subtotal fenestrated cholecystectomy 09/04 Abdominal incisions are clean, dry, and intact without dehiscence, cellulitis, or drainage. CINTIA drain with serosanguinous output ~500. Pain control: adequate. Reports continued abdominal pain. Continue current regimen. Nutrition: NPO Diet - ERCP scheduled for later today. Hgb 10 today - 1 unit of PRBC transfused 09/04. Continue abx: Zosyn. # Other Stress ulcer ppx: Protonix. Resp: On RA. Encouraged pulmonary toilet, IS, early ambulation VTE ppx: Encouraged OOB & sequential compression device use. Blood thinners: Lovenox. PT Dispo Recommendation: OT Dispo Recommendation: OT Recommendation: (S) Home with intermittent assist (Pt was scheduled to begin cardiac rehab at [facility] sometime this week.) Care plan discussed with the patient. Patient was seen/examined/discussed with Dr. Theo Rick today. HATTIE Rowell 09/05/2024 1:40 PM Cosigned by Theo Rick MD at 09/05/2024 2:54 PM CDT Associated attestation - Theo Rick MD - 09/05/2024 2:54 PM CDT I have personally seen and examined this patient on the date of service listed and have reviewed and confirmed the history, physical exam, laboratory, radiographic data, assessment and plan as documented in the note by the resident or JAMAL. Theo Rick MD defect repairer glassware Section of Acute and Critical Care Surgery [facility] [employer] [facility] * Candi Valdivia, PT - 09/05/2024 12:19 PM CDT Physical Therapy 09/05/24 0820 PT Last Visit Session Type Other (comment) PT Received On 09/05/24 PT Missed Visit Reason (Per OT pt c/o alot of abd pain and is expecting ERCP later today. Will attempt again at later time.) * Praveena Garza EP-C - 09/05/2024 10:09 AM CDT Inpatient Cardiac Rehab Education Patient Information Patient Name: Abiel Fink : 1950 Room/Bed: [place] [address]/[address] [place] Progress Note Product Ambassador: CAMRON Judge Date: 09/05/2024 Referring Diagnosis for Cardiac Rehab - s/p CABG x 3, CHF 26% Education Provided Explained my role as a Cardiac Rehab Navigator (CRN). Provided Cardiac Rehab education to patient. Family was not present. Patient was provided with Cardiac Rehab education folder as well as a [facility] Heart Education booklet. Risk Factors: DM, HLD, HTN, Fam Hx, Overweight Discussed and provided resources for managing the above risk factors, as well as managing stress/anxiety/depression. - Briefly discussed cardiac medications, and the importance of medication adherence. Advised patient to consult their nurse, physician, and/or pharmacist if they have any questions about their medications. - Briefly discussed the benefit of lifestyle modifications such as diet (sodium and saturated fats)and exercise. Advised patient to consult their completion supervisor, nurse, and/or physician if they have any questions about their diet/nutrition. Cardiac Rehab: Gave patient options of facilities for Outpatient Cardiac Rehab (OCR) in their community. Explained OCR program. Patient expressed knowledge towards local OCR program - patient prefers [facility]. I anticipate no barriers for patient to participate in cardiac rehab. Patient reports doing cardiacrehab in the past and he was supposed to begin cardiac rehab but then was admitted. Patient was pleasant and open to education. Patient states that they are not currently exercising on their own. Stressed the importance/benefits of incorporating regular aerobic exercise into their lifestyle. I explained how this would assist in their recovery post-CABG x 3 & CHF, and help maintain/improve their cardiovascular health going forward. Advised patient to follow physician instructions/restrictions as prescribed post-discharge. Recommended light walking as tolerated. Provided patient with an at home walking program. Exercise Education: Explained the importance of trying to gradually/safely increase exercise tolerance. Educated patient on working towards eventually trying to reach the [place] [employer] recommendations in regards to exercise: 150+ minutes/week of light to moderate-intensity aerobic exercise, or 75+ minutes/ week of vigorous-intensity aerobic exercise. I explained how this would help to improve cardiovascular function, as well as quality of life. - Explained safe exercise intensities with patient, discussing how using the talk test as a frameof reference in regards to preferable intensity level for general population. - Suggested that patient avoid strenuous exercise/exertion outside if the weather is under 40 degrees, or over 85 degrees. Explained the physiological reasoning for this suggestion. - Educated patient on the signs/symptoms of over-exertion: SOB, chest discomfort, musculoskeletal pain, abnormal fatigue. Explained when it would be appropriate to call Fire Extinguisher Inspector's office, go to the ER, or call 911. Insurance Coverage: Briefly explained general insurance coverage for OCR, but assured patient that OCR facility will usually call insurance and inform patient of more of an approximate coverage. Post-Discharge: Explained process between discharge from hospital, and getting set up in an OCR program - follow upwith Fire Extinguisher Inspector, CRN follow up calls, OCR program contact. Conclusion Patient seems likely to participate in OCR. Reassured patient of importance and health care provider support of OCR. Patient verbalized understanding of education, and all questions were answered to the best of my ability. Will complete order for OCR to be sent to Fire Extinguisher Inspector. Thank you for allowing us to family and divorce legal assistant in the care of this patient, please don't hesitate to contact the Cardiac Rehab Navigator office with any questions: [phone]. * Iggy Wu, OT - 09/05/2024 8:02 AM CDT Occupational Therapy Evaluation 09/05/24 0637 General Chart Reviewed Yes Session Type Evaluation OT Received On 09/05/24 Safe Environment Arm band checked;Patient found in supine Subjective Comment Just so painful. Additional Pertinent History 74 y/o M admitted to [facility] for acute abdominal pain. Found to have inflammed gallbladder now s/p cholycystectomy on 09/04. Pt also with noted liver sludge and ERCP plannedfor today. Of note, pt with CABG and and pacer placement at [facility] on 08/06. Other medical evaluation ongoing. Medical history significant for asthma, diabetes, hiatal hernia, hypertension, sleep apnea, coronary artery disease with bradycardia, complete heart block. Occupational Therapy-Patient Goal I just want to be home. Precautions Precautions Bed/Chair Alarm;Fall risk Home Living Type of Home House Home Layout One level;Basement (Rare use of basement.) Home Access Stairs to enter with rails Entrance Stairs-Rails Both Entrance Stairs-Number of Steps 4 (Family currently placing ramp.) Bathroom Shower/Tub Tub/shower unit Bathroom Toilet Standard Home Mobility Equipment-Available Wheeled walker;Single point cane Additional Comments Transfers and mobility modified independent with WW and straight cane at baseline. Prior Function Level of [place] Independent with ADLs;Independent functional transfers;Independent with ambulation;Independent with homemaking with ambulation Lives With Son Receives Help From Family (Son-->available as needed) Driving Yes ( whenever I can with my heart srugery. 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 Prior Function Comments Pt reports being fully independent prior to admission. CABG on 08/06 at [facility] with pacer placement. Grooming Grooming: Where assessed Chair Grooming: Level of assistance Standby Assist LE Dressing LE Dressing: Level of assistance Minimum Assist LE Dressing: Assistance with Don/doff L sock;Don/doff R sock Pain Assessment Pain Assessment 0-10 Pain Score 10 - Worst possible pain (Rest 0, movement 10.) Pain Location Flank Pain Orientation Right Clinical Progression (Post Pain 10/10) Pain Interventions RN Notified Activity Tolerance Endurance Tolerates 30 min activity with multiple rests Activity Tolerance Comments Session completed on room air. All vitals WFLs. SOB due to right flank pain. Cognition Cognition Comments WFLs. Distracted by right flank pain. Son available to complete money and meds as necessary. Bed Mobility 1 Level of Assistance 1 Minimum Assist Bed Mobility Comments 1 Supine to sit; Assist due to right flank pain and inability to raise trunk off of bed. Transfer 1 Transfer Level of Assistance 1 Standby Assist Trials/Comments 1 Sit<>stand with WW: Limited by pain RUE Assessment RUE Assessment WFL LUE Assessment LUE Assessment WFL Other Comments Comments Functional mobility SBA with WW x 1 minute. Limited by right flank pain. SOB present but believed to be related to pain. Completed to replicate distance and endurance necessary to complete ADLs/IADLs at home. Safe Environment End of Therapy Session Safe Environment End of Therapy Session Patient left supine in bed;Call light within reach;Overbed table within reach Assessment Prognosis Good Problem List Decreased endurance;Decreased balance;Decreased functional mobility;Decreased ADL independence;Decreased IADL independence Plan Plan Continue with current plan;If this is the last note, consider this the discharge summary Recommendation/Plan OT Recommendation (S) Home with intermittent assist (Pt was scheduled to begin cardiac rehab at [place] sometime this week.) OT Frequency during current admission 3-5x/wk Treatment/Interventions during current admission ADL/IADL retraining;Balance Training;Endurance training;Functional transfer training;Functional mobility training OT Evaluation Complete Yes Education: Patient has been educated on the role of OT, safety, ADL training, mobility training, body mechanics, and energy conservation. Education completed via verbal instruction and return demonstration. Patient verbalized understanding and demonstrated understanding. Multi-Disciplinary Problems (from Occupational Therapy) Active Problems Problem: OT Misc Start Date: 09/05/24 Goal Start Date Expected End Date End Date OT LTG 1 Pt will complete UE/LE dress modified independent. 09/05/24 09/12/24 -- Goal Start Date Expected End Date End Date OT LTG 2 Pt will complete toileting with transfer modified independent. 09/05/24 09/12/24 -- Goal Start Date Expected End Date End Date OT LTG 3 Pt will complete bathing with transfer modified independent. 09/05/24 09/12/24 -- Goal Start Date Expected End Date End Date OT LTG 4 Pt will complete grooming modified independent. 09/05/24 09/12/24 -- * Deanna Bangura MD - 09/04/2024 10:18 AM CDT Hospitalist Daily Progress 09/01/2024 Juan Retana MD Abiel Fink 74 y.o. Patient is a 74 y.o. male with a PMHx asthma, DM, hiatal hernia, HTN, sleep apnea, CAD with bradycardia, status post CABG x3 on 07/24, complete heart block s/p PPM on 08/04 is transferred from a [facility] for acute cholecystitis given recent CABG. General surgery and Cardiology consulted. Patient is cleared for surgery from Cardiology. Patient is scheduled for laparoscopic cholecystectomy on 09/04/2024. Reason for Hospitalization: RUQ abdominal pain SUBJECTIVE Patient is awake and alert Denies chest pain/shortness of breath +RUQ abd pain Patient is scheduled for laparoscopic cholecystectomy this afternoon. CURRENT MEDICATIONS Current Facility-Administered Medications: acetaminophen (TYLENOL) tablet 1,000 mg, 1,000 mg, oral, Once, Wiley Hernandez MD acetaminophen (TYLENOL) tablet 650 mg, 650 mg, oral, Q6H PRN, Jose Enriquez MD, 650 mg at 09/03/242241 albuterol HFA (PROVENTIL HFA,VENTOLIN HFA,PROAIR HFA) 90 mcg/actuation inhaler 2 puff, 2 puff, inhalation, Q6H PRN (RT), Kyrie Tucker MD, 2 puff at 09/03/242024 [Held by Provider] aspirin enteric coated tablet 81 mg, 81 mg, oral, Daily, Kyrie Tucker MD atorvastatin (LIPITOR) tablet 80 mg, 80 mg, oral, Daily, Kyrie Tucker MD, 80 mg at 09/04/24 0918 bisacodyl EC (DULCOLAX EC) tablet 10 mg, 10 mg, oral, Daily PRN OR bisacodyL (DULCOLAX) suppository 10 mg, 10 mg, rectal, Daily PRN, Kyrie Tucker MD bumetanide (BUMEX) tablet 0.5 mg, 0.5 mg, oral, Daily, Kyrie Tucker MD, 0.5 mg at 09/04/24 0918 Carrier Fluids for Secondary Infusion - 0.9% Sodium Chloride, 30 mL, intravenous, PRN, Phatak, Jose S., MD Carrier Fluids for Secondary Infusion - 0.9% Sodium Chloride, 30 mL, intravenous, PRN, Kyrie Tucker MD carvediloL (COREG) tablet 3.125 mg, 3.125 mg, oral, BID with meals (bkfst, dinner), Kyrie Tucker MD, 3.125 mg at 09/04/24 0918 dextrose (D10W) 10% bolus 250 mL, 250 mL, intravenous, Once PRN, Wiley Hernandez MD [Held by Provider] DULoxetine DR (CYMBALTA) extended release capsule 60 mg, 60 mg, oral, QAM, Kyrie Tucker MD [Held by Provider] heparin 5,000 unit/mL injection 5,000 Units, 5,000 Units, subcutaneous, Q8H HILDA,Kyrie Tucker MD, 5,000 Units at 09/03/24 1401 HYDROcodone-acetaminophen (NORCO) 5-325 mg per tablet 1 tablet, 1 tablet, oral, Q4H PRN, Josefa Bell MD, 1 tablet at 09/03/24 2242 HYDROmorphone (PF) (DILAUDID) injection 0.2 mg, 0.2 mg, intravenous, Q6H PRN, Jasmin Reyna MD, 0.2 mg at 09/04/24 0755 isosorbide mononitrate ER (IMDUR) extended release tablet 15 mg, 15 mg, oral, Daily, Kyrie Tucker MD, 15 mg at 09/04/24 0918 Lactated Ringer's (LR) infusion, 30 mL/hr, intravenous, Continuous, Wiley Hernandez MD, Last Rate: 30 mL/hr at 09/04/24 0002, 30 mL/hr at 09/04/24 0002 lidocaine (PF) (XYLOCAINE) 10 mg/mL (1 %) preservative free injection 2-10 mg, 0.2-1 mL, other, Once PRN, Wiley Hernandez MD ondansetron ODT (ZOFRAN-ODT) disintegrating tablet 4 mg, 4 mg, oral, Q6H PRN OR ondansetron (ZOFRAN) injection 4 mg, 4 mg, intravenous, Q6H PRN, Jose Enriquez MD pantoprazole DR (PROTONIX) extended release tablet 40 mg, 40 mg, oral, Daily, Kyrie Tucker MD,40 mg at 09/04/24 0918 piperacillin-tazobactam (ZOSYN) 3.375 g in sodium chloride 0.9% 100 mL IVPB, 3.375 g, intravenous, Q6H HILDA, Kyrie Tucker MD, Last Rate: 200 mL/hr at 09/04/24 0533, 3.375 g at 09/04/24 0533 polyethylene glycol (MIRALAX) packet 17 g, 17 g, oral, Daily PRN, Kyrie Tucker MD pregabalin (LYRICA) capsule 100 mg, 100 mg, oral, BID, Kyrie Tucker MD, 100 mg at 09/04/24 0918 sodium chloride 0.9% flush 0.5-20 mL, 0.5-20 mL, intra-catheter, Q8H HILDA, Jose Enriquez MD, 10 mL at 09/03/24 1402 sodium chloride 0.9% flush 0.5-20 mL, 0.5-20 mL, intra-catheter, PRN, Jose Enriquez MD sodium chloride 0.9% flush 0.5-20 mL, 0.5-20 mL, intra-catheter, Q8H HILDA, Kyrie Tucker MD, 10 mL at 09/02/24 1323 sodium chloride 0.9% flush 0.5-20 mL, 0.5-20 mL, intra-catheter, PRN, Kyrie Tucker MD, 10 mL at 09/03/24 0138 sodium chloride 0.9% flush 0.5-20 mL, 0.5-20 mL, intra-catheter, PRN, Wiley Hernandez MD OBJECTIVE BP 145/75 (BP Location: Right arm, Patient Position: Lying) Pulse 89 Temp 36.9 ??C (98.5 ??F) (Oral) Resp 22 Ht 177.8 cm (5' 10 ) Wt 104.8 kg (231 lb 0.7 oz) SpO2 98% BMI 33.15 kg/m?? I/O last 2 completed shifts: In: 3341.5 [P.O.:540; I.V.:2601.5; IV Piggyback:200] Out: 800 [Urine:800] No intake/output data recorded. Physical Exam: General appearance: Patient is awake, alert and oriented x 3, cooperative. Neck supple and free of adenopathy, or masses. No thyromegaly. Head, Eyes,Ears, throat are normal. Lungs are clear to auscultation. Heart sounds are normal, no murmurs, clicks, gallops or rubs. Abdomen is soft, 1+tenderness in RUQ, no masses or organomegaly. Extremities are normal. Peripheral pulses are normal. Musculoskeletal : no joint swelling or tenderness,no limitation of movement. DIRECTOR OF VALUATION: A and O x 3, speech is normal, no focal neurological findings. Skin is normal without suspicious lesions noted. Lab/Radiology/Diagnostic Review: Laboratory review: I have personally reviewed Recent Labs Lab Units 09/04/24 0529 WBC K/cumm 4.9 HEMOGLOBIN g/dL 7.6* HEMATOCRIT % 26.2* PLATELETS K/cumm 192 Recent Labs Lab Units 09/04/24 0752 09/04/24 0529 SODIUM mmol/L -- 139 POTASSIUM PLASMA mmol/L -- 3.3 CHLORIDE mmol/L -- 106 CO2 mmol/L -- 22 ANIONGAP mmol/L -- 11 BUN SERUM mg/dL -- 11 CREATININE mg/dL -- 0.81 GLUCOSE mg/dL -- 115 POC GLUCOSE MONITOR mg/dL 107 -- CALCIUM mg/dL -- 8.0* Principal Problem: Acute cholecystitis Active Problems: Coronary artery disease with history of myocardial infarction without history of CABG Coronary artery disease due to calcified coronary lesion Complete heart block (CMS/HCC) (HCC) DM2 (diabetes mellitus, type 2) ([facility]) Biventricular cardiac pacemaker in situ ASSESSMENT / PLAN : Acute cholecystitis blood cultures remain negative Continue Zosyn D#3 Continue IV fluids. Discussed with general surgery, patient is scheduled for cholecystectomy this afternoon Coronary artery disease due to calcified coronary lesion NSTEMI He is status post recent CABG x3 on 07/24/2024 Holding aspirin and Plavix for anticipated surgery. Patient is evaluated by cardiology and cleared for surgery continue Bumex, isosorbide, statins and Coreg Complete heart block (CMS/HCC) (HCC) Status post permanent pacemaker implantation on 08/04 DM2 (diabetes mellitus, type 2) (HCC) Holding oral hypoglycemics. Continue SSI. These fluid and electrolyte abnormalities are being treated, evaluated or monitored: Hypomagnesemia--replaced Full Code DVT PPX hold subQ heparin for surgery today GI PPX PPI ESTIMATED LENGTH OF STAY: More than 2 midnights MDM high complexity Disposition: Possible discharge home on Wednesday/Wednesday Care ,treatment plan, labs and imaging discussed with the patient and answered all the questions Discussed with care team Dr[facility]Sarada Willem MD,[facility] I used a voice recognition software for dictation. This may alter words unintentionally * Deanna Bangura MD - 09/03/2024 11:04 AM CDT Hospitalist Daily Progress 09/01/2024 Juan Retana MD Charles Eliseo Aleks 74 y.o. Reason for Hospitalization: RUQ abdominal pain SUBJECTIVE Patient is awake and alert +RUQ abd pain Denies nausea or vomiting Denies shortness of breath CURRENT MEDICATIONS Current Facility-Administered Medications: acetaminophen (TYLENOL) tablet 650 mg, 650 mg, oral, Q6H PRN, Jose Enriquez MD albuterol HFA (PROVENTIL HFA,VENTOLIN HFA,PROAIR HFA) 90 mcg/actuation inhaler 2 puff, 2 puff, inhalation, Q6H PRN (RT), Kyrie Tucker MD, 2 puff at 09/02/240 [Held by Provider] aspirin enteric coated tablet 81 mg, 81 mg, oral, Daily, Kyrie Tucker MD atorvastatin (LIPITOR) tablet 80 mg, 80 mg, oral, Daily, Kyrie Tucker MD, 80 mg at 09/03/24 0819 bisacodyl EC (DULCOLAX EC) tablet 10 mg, 10 mg, oral, Daily PRN OR bisacodyL (DULCOLAX) suppository 10 mg, 10 mg, rectal, Daily PRN, Kyrie Tucker MD bumetanide (BUMEX) tablet 0.5 mg, 0.5 mg, oral, Daily, Kyrie Tucker MD, 0.5 mg at 09/03/24818 Carrier Fluids for Secondary Infusion - 0.9% Sodium Chloride, 30 mL, intravenous, PRN, Jose Enriquez MD Carrier Fluids for Secondary Infusion - 0.9% Sodium Chloride, 30 mL, intravenous, PRN, Kyrie Tucker MD carvediloL (COREG) tablet 3.125 mg, 3.125 mg, oral, BID with meals (bkfst, dinner), Kyrie Tucker MD, 3.125 mg at 09/03/24818 [Held by Provider] DULoxetine DR (CYMBALTA) extended release capsule 60 mg, 60 mg, oral, QAM, Kyrie Tucker MD heparin 5,000 unit/mL injection 5,000 Units, 5,000 Units, subcutaneous, Q8H HILDA, Kyrie Tucker MD, 5,000 Units at 09/03/24 0558 HYDROcodone-acetaminophen (NORCO) 5-325 mg per tablet 1 tablet, 1 tablet, oral, Q4H PRN, Josefa Bell MD, 1 tablet at 09/03/24 0819 HYDROmorphone (PF) (DILAUDID) injection 0.2 mg, 0.2 mg, intravenous, Q6H PRN, Jasmin Reyna MD, 0.2 mg at 09/02/24 0530 isosorbide mononitrate ER (IMDUR) extended release tablet 15 mg, 15 mg, oral, Daily, Kyrie Tucker MD, 15 mg at 09/03/24818 Lactated Ringer's (LR) infusion, 75 mL/hr, intravenous, Continuous, Kyrie Tucker MD, Last Rate: 75 mL/hr at 09/02/242210, 75 mL/hr at 09/02/242210 ondansetron ODT (ZOFRAN-ODT) disintegrating tablet 4 mg, 4 mg, oral, Q6H PRN OR ondansetron (ZOFRAN) injection 4 mg, 4 mg, intravenous, Q6H PRN, Jose Enriquez MD pantoprazole DR (PROTONIX) extended release tablet 40 mg, 40 mg, oral, Daily, Kyrie Tucker MD,40 mg at 09/03/24 0819 piperacillin-tazobactam (ZOSYN) 3.375 g in sodium chloride 0.9% 100 mL IVPB, 3.375 g, intravenous, Q6H HILDA, Kyrie Tucker MD, Last Rate: 200 mL/hr at 09/03/24 0558, 3.375 g at 09/03/24 0558 polyethylene glycol (MIRALAX) packet 17 g, 17 g, oral, Daily PRN, Kyrie Tucker MD pregabalin (LYRICA) capsule 100 mg, 100 mg, oral, BID, Kyrie Tucker MD, 100 mg at 09/03/24 0819 sodium chloride 0.9% flush 0.5-20 mL, 0.5-20 mL, intra-catheter, Q8H HILDA, Jose Enriquez MD, 10 mL at 09/03/24 0620 sodium chloride 0.9% flush 0.5-20 mL, 0.5-20 mL, intra-catheter, PRN, Jose Enriquez MD sodium chloride 0.9% flush 0.5-20 mL, 0.5-20 mL, intra-catheter, Q8H HILDA, Kyrie Tucker MD, 10 mL at 09/02/24 1323 sodium chloride 0.9% flush 0.5-20 mL, 0.5-20 mL, intra-catheter, PRN, Kyrie Tucker MD, 10 mL at 09/03/24 0138 sodium chloride 0.9% infusion, 75 mL/hr, intravenous, Continuous, Jose Enriquez MD, Last Rate: 75 mL/hr at 09/03/24 0825, 75 mL/hr at 09/03/24 0825 OBJECTIVE BP 116/66 (BP Location: Right arm, Patient Position: HOB 30 degrees) Pulse 74 Temp 37 ??C (98.6??F) (Oral) Resp 18 Ht 177.8 cm (5' 10 ) Wt 104.8 kg (231 lb 0.7 oz) SpO2 98% BMI 33.15 kg/m?? I/O last 2 completed shifts: In: 2313 [P.O.:480; I.V.:1733; IV Piggyback:100] Out: 575 [Urine:575] I/O this shift: In: - Out: 150 [Urine:150] Physical Exam: General appearance: Patient is awake, alert and oriented x 3, cooperative. Neck supple and free of adenopathy, or masses. No thyromegaly. Head, Eyes,Ears, throat are normal. Lungs are clear to auscultation. Heart sounds are normal, no murmurs, clicks, gallops or rubs. Abdomen is soft, 1+tenderness in RUQ, no masses or organomegaly. Extremities are normal. Peripheral pulses are normal. Musculoskeletal : no joint swelling or tenderness,no limitation of movement. DIRECTOR OF VALUATION: A and O x 3, speech is normal, no focal neurological findings. Skin is normal without suspicious lesions noted. Lab/Radiology/Diagnostic Review: Laboratory review: I have personally reviewed Recent Labs Lab Units 09/03/24 0633 WBC K/cumm 5.2 HEMOGLOBIN g/dL 8.2* HEMATOCRIT % 28.6* PLATELETS K/cumm 173 Recent Labs Lab Units 09/03/24 0633 SODIUM mmol/L 139 POTASSIUM PLASMA mmol/L 3.5 CHLORIDE mmol/L 107 CO2 mmol/L 21* ANIONGAP mmol/L 11 BUN SERUM mg/dL 13 CREATININE mg/dL 0.77* GLUCOSE mg/dL 92 CALCIUM mg/dL 7.9* Principal Problem: Acute cholecystitis Active Problems: Coronary artery disease with history of myocardial infarction without history of CABG Coronary artery disease due to calcified coronary lesion Complete heart block (CMS/HCC) ([facility]) DM2 (diabetes mellitus, type 2) ([facility]) Biventricular cardiac pacemaker in situ ASSESSMENT / PLAN : Acute cholecystitis blood cultures remain negative Continue Zosyn. Continue IV fluids. Replete electrolytes as needed. Discussed with general surgery, patient is scheduled for cholecystectomy tomorrow Active Problems: Coronary artery disease due to calcified coronary lesion NSTEMI He is status post recent CABG x3 Holding aspirin and Plavix due to anticipated surgery. Patient is evaluated by cardiology and cleared for surgery Continue statin. Resume Bumex, isosorbide, and Coreg Complete heart block (CMS/HCC) (HCC) Status post permanent pacemaker implantation. DM2 (diabetes mellitus, type 2) (HCC) Holding oral hypoglycemics. Started on SSI. These fluid and electrolyte abnormalities are being treated, evaluated or monitored: Hypomagnesemia--replace and monitor Full Code DVT PPX hold subQ heparin for surgery tomorrow GI PPX PPI ESTIMATED LENGTH OF STAY: More than 2 midnights MDM high complexity Disposition: Care ,treatment plan, labs and imaging discussed with the patient and answered all the questions Discussed with care team Dr.Sarada Willem MD,[facility] I used a voice recognition software for dictation. This may alter words unintentionally * Sloan Yanez MD - 09/03/2024 8:13 AM CDT Images from the original note were not included. [facility] [address] [place] [address], [address] [place], [place], [facility] [address] [place] [address] [place] [id number] Cardiology Electrophysiology MD Matthew Salter,, MD Richard Hammer, MD Nba Leiva, MD Jamey Chaves, MD Preston Daley, MD Regino Rivera, MD Madai Porras, ACID PATROLLER Sylvester Cotton, MD Soheila Garza, ACID PATROLLER MD Natalie Gibson, JUSTYN Yanez, MD Kandace Edwards, JUSTYN Alexandra, JUSTYN Reveles, JUSTYN Rogers, HATTIE Cardiology Daily Progress Note Patient Name: Abiel Fink Date of : 1950 Primary Physician: Juan Retana MD Admission Date: 09/01/2024 Length of Stay: 2 Chief Complaint No chief complaint on file. Subjective INTERVAL EVENTS: No acute interval events overnight patient just wants to know if he is going to have anything done to his gallbladder No chest pain no shortness of breath Objective OBJECTIVE: Vitals: 09/02/24205409/03/24 0019 09/03/24 0415 09/03/24 0802 BP: 121/60 152/63 136/65 116/66 BP Location: Right arm Right arm Right arm Patient Position: Lying Lying HOB 30 degrees Pulse: 82 81 74 74 Resp: 20 18 18 18 Temp: 36.7 ??C (98 ??F) 36.8 ??C (98.3 ??F) 36.6 ??C (97.9 ??F) 37 ??C (98.6 ??F) TempSrc: Oral Axillary Axillary Oral SpO2: 98% 97% 96% 98% Weight: Height: Intake/Output Summary (Last 24 hours) at 09/03/2024 0818 Last data filed at 09/03/2024 0555 Gross per 24 hour Intake 2313 ml Output 475 ml Net 1838 ml Scheduled Medications Medication Dose Route Frequency [Held by Provider] aspirin enteric coated tablet 81 mg 81 mg oral Daily atorvastatin (LIPITOR) tablet 80 mg 80 mg oral Daily bumetanide (BUMEX) tablet 0.5 mg 0.5 mg oral Daily carvediloL (COREG) tablet 3.125 mg 3.125 mg oral BID with meals (bkfst, dinner) [Held by Provider] DULoxetine DR (CYMBALTA) extended release capsule 60 mg 60 mg oral QAM heparin 5,000 unit/mL injection 5,000 Units 5,000 Units subcutaneous Q8H [facility] isosorbide mononitrate ER (IMDUR) extended release tablet 15 mg 15 mg oral Daily pantoprazole DR (PROTONIX) extended release tablet 40 mg 40 mg oral Daily piperacillin-tazobactam (ZOSYN) 3.375 g in sodium chloride 0.9% 100 mL IVPB 3.375 g intravenous Q6HSCH pregabalin (LYRICA) capsule 100 mg 100 mg oral BID sodium chloride 0.9% flush 0.5-20 mL 0.5-20 mL intra-catheter Q8H HILDA sodium chloride 0.9% flush 0.5-20 mL 0.5-20 mL intra-catheter Q8H [facility] Exam General: No apparent distress. Eyes: Sclerae anicteric. Neck: JVP is normal. Chest: No deformity. Respiratory: Clear to auscultation bilaterally with good air movement. Cardiac: Regular rate and rhythm. No murmurs, gallops, rubs. Vascular: 2+ pulses throughout. Abdomen: Soft, nontender, nondistended. Extremities: No lower extremity edema. Musculoskeletal: Grossly normal strength throughout. Neurologic: Nonfocal. No dysarthria. Skin: No rashes Psychiatric: Appropriate affect and interaction. Diagnostics Recent Results (from the past 24 hour(s)) Blood culture Blood Collection Time: 09/02/24 9:38 AM Specimen: Blood Result Value Ref Range Report Preliminary Report: No growth to date. Sepsis Lactate w/ Reflex Collection Time: 09/02/24 9:38 AM Result Value Ref Range Sepsis Lactate 1.3 0.7 - 2.0 mmol/L Troponin T high-sensitivity series (baseline, 2hr, 4hr, 6hr) Collection Time: 09/02/24 9:38 AM Result Value Ref Range Trop T hs 69 (H) <=22 ng/L Magnesium Collection Time: 09/02/24 9:38 AM Result Value Ref Range Magnesium 1.9 1.4 - 2.5 mg/dL Phosphorus Collection Time: 09/02/24 9:38 AM Result Value Ref Range Phosphorus, pl 2.5 2.3 - 4.5 mg/dL Blood culture Blood Collection Time: 09/02/24 11:08 AM Specimen: Blood Result Value Ref Range Report Preliminary Report: No growth to date. Troponin T high-sensitivity 2-hour Collection Time: 09/02/24 11:08 AM Result Value Ref Range Trop T hs 70 (H) <=22 ng/L Trop T hs delta See Comment ng/L Trop T hs pct delta See Comment % Trop T hs interp See Comment Troponin T high-sensitivity 4-hour Collection Time: 09/02/24 2:29 PM Result Value Ref Range Trop T hs 71 (H) <=22 ng/L Trop T hs delta 2 ng/L Trop T hs interp Insignificant Troponin T high-sensitivity 6-hour Collection Time: 09/02/24 4:20 PM Result Value Ref Range Trop T hs 72 (H) <=22 ng/L Trop T hs delta 3 ng/L Trop T hs interp Insignificant CBC with auto differential Collection Time: 09/03/24 6:33 AM Result Value Ref Range WBC 5.2 3.8 - 9.9 K/cumm Hgb 8.2 (L) 13.0 - 17.5 g/dL Hct 28.6 (L) 38.9 - 50.3 % Plt 173 150 - 400 K/cumm MPV 9.6 9.1 - 12.3 fL RBC 3.51 (L) 4.30 - 5.80 M/cumm MCV 81.5 81.3 - 96.4 fL MCH 23.4 (L) 27.1 - 33.3 pg MCHC 28.7 (L) 32.3 - 35.7 g/dL RDW CV 16.8 (H) 11.1 - 14.9 % RDW SD 49.4 (H) 35.7 - 48.1 fL NRBC abs 0.00 0.00 - 0.01 K/cumm Comprehensive metabolic panel Collection Time: 09/03/24 6:33 AM Result Value Ref Range Sodium 139 135 - 145 mmol/L Potassium, pl 3.5 3.3 - 4.9 mmol/L Chloride 107 97 - 110 mmol/L CO2 21 (L) 22 - 32 mmol/L Anion gap 11 2 - 15 mmol/L BUN 13 6 - 25 mg/dL Creatinine 0.77 (L) 0.80 - 1.30 mg/dL Glucose 92 70 - 199 mg/dL Calcium 7.9 (L) 8.5 - 10.3 mg/dL Bilirubin, total 0.6 0.1 - 1.2 mg/dL Protein, pl 6.0 (L) 6.5 - 8.5 g/dL Albumin 2.4 (L) 3.5 - 5.0 g/dL Alk phos 149 (H) 40 - 130 Units/L ALT 23 7 - 55 Units/L AST 43 10 - 50 Units/L Differential, auto Collection Time: 09/03/24 6:33 AM Result Value Ref Range Neutrophil abs 3.3 1.5 - 6.5 K/cumm Imm gran abs 0.1 0.0 - 0.1 K/cumm Lymphocyte abs 1.0 0.8 - 3.3 K/cumm Monocyte abs 0.6 0.2 - 0.8 K/cumm Eosinophil abs 0.3 0.0 - 0.5 K/cumm Basophil abs 0.1 0.0 - 0.1 K/cumm Neutrophil pct 63.1 % Imm gran pct 1.0 % Lymphocyte pct 18.3 % Monocyte pct 11.6 % Eosinophil pct 4.8 % Basophil pct 1.2 % Bilirubin, direct Collection Time: 09/03/24 6:33 AM Result Value Ref Range Bilirubin, direct 0.3 0.1 - 0.3 mg/dL Phosphorus Collection Time: 09/03/24 6:33 AM Result Value Ref Range Phosphorus, pl 2.8 2.3 - 4.5 mg/dL eGFR Collection Time: 09/03/24 6:33 AM Result Value Ref Range eGFR >90 >=60 mL/min/1.73 m2 US RUQ Result Date: 09/03/2024 1. Gallbladder sludge with nonspecific wall thickening. No pericholecystic fluid or sonographic Rothman sign. Normal appearance of the biliary system. 2. Cirrhotic liver with perihepatic ascites. Patent portal vein with appropriate directional flow. Electronically signed by: Jeremy Edwards M.D. No results found for this or any previous visit. Assessment # acute cholecystitis - Diagnosed with acute cholecystitis I gave - evaluation here pending General surgery evaluation - elevated risk given severe ischemic cardiomyopathy EF 26% and recent CABG the both of these appear well managed at this time - Patient is at elevated but not prohibitive risk for these procedures, and is okay from cardiac perspective to proceed with percutaneous drain or if deemed necessary cholecystectomy - aspirin and Plavix are currently on hold - patient currently receiving therapeutic Lovenox at this time which can be held at the discretion of the surgeon prior to those procedures # recent cardiovascular surgery # CABG x3 July 2024 [place] - CABG x3 on 07/24/2024,BURGESS to LAD, left radial to OM, SVG to PDA at [facility] [place] - no acute signs of ACS - No chest - elevated and flat troponin - unremarkable EKG with biventricular paced rhythm - sternal wound looks clean dry and intact - Based on history was progressing as expected, and was discharged to home from subacute rehab and tolerating activity well until abdominal pain started - planning on attending cardiac rehab at [place], via the [facility] - no further cardiac workup indicated at this time unless patient develops chest pain in which casewe will repeat EKG and cardiac enzymes - aspirin and Plavix currently on hold given possible need for abdominal procedures # ischemic cardiomyopathy - EF 26% last month after surgery At [facility] - Moderate functional mitral regurgitation - appears well compensated at this time with no signs of volume overload - continue carvedilol 3.125 b.i.d. and isosorbide mononitrate 15 mg daily which was the only GDMT at discharge - will not attempt aggressive GDMT titration during acute cystitis episode # Complete heart block # OBSTETRICIAN AND GYNAECOLOGIST D - [employer] OBSTETRICIAN AND GYNAECOLOGIST D, due to complete heart block with slow junctional escape rhythm. - Reviewed EKG, normal biventricular paced rhythm Daily Medication Changes and Management summary - okay to hold antiplatelets prior to procedure - resume aspirin and Plavix soon as possible after procedure - can stop trending enzymes at this time but if the patient developed chest pain repeat EKG and enzymes No active cardiac issues will sign off at this time but happy to re-evaluate at any time, or weigh in if any other cardiac questions arise Continue current plan from a cardiac perspective Resume Home cardiac meds at discharge Care plan discussed with the patient Sloan Yanez MD 09/03/2024 8:18 AM This note was dictated in part using [employer] voice recognition software. Despite careful review of this note, variances in spelling and vocabulary are possible and unintentional. * Deanna Bangura MD - 09/02/2024 11:23 AM CDT Pt is seen by colleague early this morning Patient is seen and examined Continues to have RUQ abdominal pain No nausea or vomiting Discussed with cardiology Patient is cleared for surgery documented in this encounter H&P Notes * Ever Anton MD - 09/04/2024 1:04 PM CDT My partner Dr. Momo Epstein saw Mr. Fink in consultation.. Please see his consult note below. Patient has cardiac clearance. I am available to perform the procedure today. We will proceed with laparoscopic cholecystectomy. We discussed the laparoscopic cholecystectomy with possible intraoperative cholangiogram, possible open procedure. the risks which include but are not limited to bleeding, infection, injury to the common bile duct requiring major corrective surgery and hepatic artery, bileleak, need for postoperative ERCP, postoperative diarrhea, postoperative hernia, bowel obstruction,nonresolution of symptoms, cardiopulmonary complications among others. He understands and all questions were answered to apparent satisfaction. He wishes to proceed. We will get him scheduled for today. Ever Anton MD, [facility] Department of Surgery ACCS, Division of General Surgery 09/04/2024 1:04 PM Expand All Collapse All General Surgery Consult Note 09/02/2024 Patient: Abiel Fink 74 y.o. male Date of : 1950 Primary Care Physician: Juan Retana MD Attending Provider: Deanna Bangura MD Referred by: Harmeet Alejandre NP Admission Date: 09/01/2024 Date of consult: 09/02/24 Length of Stay: 1 SUBJECTIVE HPI: Abiel Fink is a 74 y.o. male who presented to outside facility hospital with complaints of pain. Was seen in [facility] and was diagnosed with cholecystitis. Patient was recently admitted to the hospital and discharged on 08/11/2024 status post CABG x3 on 07/24 and permanent pacemaker regular implantation on 08/04. Surgeon from [facility] did not agree to do the surgery recommended transferring patient to [place] given the recent CT surgery. Outside facility workup was notable for mild metabolic acidosis with elevated LFTs and total bilirubin 1.4. Mild hypomagnesemia, leukocytosis WBC 11.5, baseline anemia, with hemoglobin 8.8 and hematocrit 30.0. INR 1.5 Troponins mildly elevated . Per outside record review patient initially was in hospital, noted to have elevated troponins. Was referred for admission for NSTEMI, however patient left AMA with oral Augmentin which he did not take. He returned next day with complaints of worsening of pain, fever, and shortness of breath. Repeat troponin showed interval increase troponin level to 0088.ew of Systems OBJECTIVE Past Medical History Past Medical History: Diagnosis Date Asthma Diabetes mellitus (HCC) GERD (gastroesophageal reflux disease) HH (hiatus hernia) Hypertension Sleep apnea pt uses CPAP machine nightly Past Surgical History Past Surgical History: Procedure Laterality Date KIDNEY SURGERY 1960 MULTIPLE TOOTH EXTRACTIONS TOTAL KNEE ARTHROPLASTY Left 2017 TOTAL KNEE ARTHROPLASTY Right 2019 Allergies as of 08/31/2024 - Reviewed 08/15/2024 Allergen Reaction Noted Tramadol Itching 06/11/2020 Family History Family History Problem Relation Age of Onset Cardiomyopathy Mother Anesthesia problems Neg Hx Malig Hypertension Neg Hx Malig Hyperthermia Neg Hx Pseudochol deficiency Neg Hx Social History Social History Tobacco Use Smoking status: Former Current packs/day: 0.00 Average packs/day: 1.5 packs/day for 19.6 years (29.4 ttl pk-yrs) Types: Cigarettes Start date: 1960 Quit date: 06/11/1980 Years since quittin.2 Passive exposure: Past Smokeless tobacco: Never Substance and Sexual Activity Drug use: Not Currently Sexual activity: Defer Alcohol Use: Not At Risk (07/24/2024) AUDIT-C Frequency of Alcohol Consumption: Monthly or less Average Number of Drinks: 1 or 2 Frequency of Binge Drinking: Never CURRENT MEDICATIONS Scheduled Medications Continuous Medications PRN Medications Scheduled Medications [Held by Provider] aspirin, 81 mg, oral, Daily atorvastatin, 80 mg, oral, Daily bumetanide, 0.5 mg, oral, Daily carvediloL, 3.125 mg, oral, BID with meals (bkfst, dinner) [Held by Provider] DULoxetine DR, 60 mg, oral, QAM heparin, 5,000 Units, subcutaneous, Q8H HILDA isosorbide mononitrate ER, 15 mg, oral, Daily pantoprazole DR, 40 mg, oral, Daily piperacillin-tazobactam, 3.375 g, intravenous, Q6H HILDA pregabalin, 100 mg, oral, BID sodium chloride 0.9%, 0.5-20 mL, intra-catheter, Q8H HILDA sodium chloride 0.9%, 0.5-20 mL, intra-catheter, Q8H HILDA Current Medications and Prescriptions Ordered in Epic Continuous Medications Medication Dose Last Rate Lactated Ringer's (LR) infusion 75 mL/hr 75 mL/hr (09/02/24 0673) sodium chloride 0.9% infusion 75 mL/hr 75 mL/hr (09/01/24 8600) PRN Medications acetaminophen albuterol HFA bisacodyl EC OR bisacodyL sodium chloride 0.9% sodium chloride 0.9% HYDROcodone-acetaminophen HYDROmorphone ondansetron ODT OR ondansetron polyethylene glycol sodium chloride 0.9% sodium chloride 0.9% VITAL SIGNS Vitals Vitals: 09/01/24 2006 09/02/24 0006 09/02/24 0448 09/02/24 0810 BP: 146/66 144/65 115/75 121/75 BP Location: Left arm Patient Position: HOB 30 degrees Pulse: 94 90 88 89 Resp: 18 18 18 20 Temp: 36.9 ??C (98.4 ??F) 37.1 ??C (98.7 ??F) 36.7 ??C (98.1 ??F) 36.9 ??C (98.5 ??F) TempSrc: Oral SpO2: 96% 94% 95% 98% PHYSICAL EXAM Constitutional: Alert. Cooperative. In no apparent distress. HEENT: Normocephalic. Atraumatic. Moist mucous membranes. Sclera are anicteric. Neck: Supple. Normal ROM. Cardiac: Heart is regular rate and rhythm. Chest: Normal respirations Abdomen: soft with mild RUQ pain Neurologic: Spontaneously moves all extremities. No focal deficits. Psych: normal affect, mood, judgement Extremities are warm, without edema. DIAGNOSTICS Recent Labs Lab Units 09/02/24 0611 WBC K/cumm 5.8 HEMOGLOBIN g/dL 7.9* HEMATOCRIT % 27.3* PLATELETS K/cumm 186 Recent Labs Lab Units 09/02/24 0611 09/01/243 SODIUM mmol/L 140 138 POTASSIUM PLASMA mmol/L 3.5 3.5 PHOSPHORUS PLASMA mg/dL 2.3 2.0* CHLORIDE mmol/L 106 105 CO2 mmol/L 21* 22 ANIONGAP mmol/L 13 11 BUN SERUM mg/dL 14 14 CREATININE mg/dL 0.74* 0.76* CALCIUM mg/dL 7.7* 8.1* ALBUMIN g/dL 2.7* 3.1* ALK PHOS Units/L 146* 148* ALT Units/L 23 26 AST Units/L 38 40 BILIRUBIN TOTAL mg/dL 0.7 0.8 Recent Labs Lab Units 09/02/24 0611 09/01/24 2113 GLUCOSE mg/dL 100 110 Lab Results Component Value Date INR 1.44 (H) 07/24/2024 ECG 12 lead Result Date: 09/02/2024 Narrative: Vent Rate: 92 bpm RR Interval: 650 msec MD Interval: 154 msec QRS Duration: 151 msec QT Interval: 406 msec QTC Interval: 456 msec P-R-T [place]: 37 - 267 - 106 degrees IMPRESSION: ELECTRONIC VENTRICULAR PACEMAKER ABNORMAL RHYTHM ECG Electronically Signed By: DEVICE CHECK - IN OFFICE Result Date: 08/15/2024 Narrative: Interpretation Summary: Battery and Leads (BL) Normal parameters noted on battery and lead(s) --- Estimated battery longevity 8.3 years. Presenting Rhythm (MD) Atrial Sensing-BiVentricularPacing (-BiVP) --- /BiVP 85 bpm. Underlying /VS, COMPLETE HEART BLOCK 40 bpm. Arrhythmic events (AE) No new arrhythmic events in monitoring period Transmission Information (TI) Device Summary Report Implantable Cardiac Device Result Date: 08/05/2024 Narrative: Patient Name: Abiel Fink Date of : 1950 Primary Physician: @PCP@ Procedure Date: @ADMITDT@ Name of procedure: 1. Placement of a Biventricular Pacing ICD 2. Selective Coronary Sinus Venography 3. Subclavian venography History: 1) CAD -Symptoms of GARCÍA -s/p CABG UBRGESS-LAD, left radial-OM, SVG-PDA) 07/24/2024 2) AV block -History of second degree AV block, CHB post op -Given CHB and LVEF 26%, presented for OBSTETRICIAN AND GYNAECOLOGIST-D 08/04/2024. 3) ICM -LVEF 40-50% pre op, with RV dysfunction (EMILE) -TTE 08/03/2024 with LVEF of 26% and likely normal RV 4) Mitralregurgitation -Mod MR pre-op -TTE 08/03/2024 mod MR 5) HTN 6) DM Methods: After informed consent wasobtained, the patient was brought to the EP laboratory in a postabsorptive, nonsedated state. Peripheral IV access was established. Prophylactic antibiotics were administered prior to incision. Continuous ECG, blood pressure, and pulse oximetry were initiated. Cardioversion patch electrodes were placed on the patient's chest and back. A grounding patch was applied to the skin. Sedation was administered by anesthesia. In order to define the extrathoracic portion of the subclavian vein and exclude significant venous obstruction or anomalous anatomy, subclavian venography was performed prior to the procedure. Using the patient's left upper ext peripheral IV, contrast was injected and images were recorded. The left subclavian vein and SVC were found to be widely patent. The left chest was prep ared and draped in a sterile fashion. Local anesthesia was injected in the subcutaneous tissue in the infraclavicular area. An incision was made medial to the deltopectoral groove and parallel to theclavicle. The subcutaneous tissue was dissected the level of the prepectoral fascia. A subcutaneouspocket was created. Under fluoroscopic guidance and with the assistance of the images from the venogram, three separate venipunctures were made using micropuncture and modified Seldinger technique. These was performed in the extrathoracic portion of the subclavian vein. Guidewires were passed. Peel-away sheaths were placed, and were used to advance the leads into the circulation. Using fluoroscopic guidance, the leads were positioned. The RV lead was advanced to the RV outflow tract. Ventricular ectopy was recorded. Images were taken in SHELL and MACEDONIAN views to ensure appropriate lead placement. The lead tip was subsequently positioned in the RV apex. Adequate sensing and pacing parameters werefound, and no diaphragmatic stimulation was seen with high-output pacing. Next, the LV pacing lead was placed. The coronary sinus was intubated with an extended hook outer CS sheath and hydrophilic wire. Selective coronary sinus venography was performed, demonstrating the presence of a suitable postero lateral branch (lateral and anterolateral were very small). A quadripolar lead was positioned in this branch over a whisper EDS wire. Adequate sensing and pacing parameters were found, and no diaphragmatic stimulation was seen with high-output pacing. Next, the right atrial lead was positioned in the right atrial appendage. Adequate sensing and pacing parameters were found, and no diaphragmatic stimulation was seen with high-output pacing. All sheaths were split, and the leads were secured to the fascia with Ethibond ties. The pocket was flushed with antibiotic solution and hemostasis wasassured. Floseal was applied. The generator was connected to the leads and placed inside the pocket. Antibiotic envelope was used.The wound was closed with 3 running layers of absorbable suture, and steristrips were applied. Defibrillator function testing was deferred. Following the procedure, the p atient was taken to the recovery area in stable condition. A chest x-ray was obtained in the holding area. Lead parameters and device programming: - RA Lead (#[id number] S/N [id number]): Sensing 2.5 mV, Pacing threshold 0.75 V at 0.4 ms, Imp 608 Ohm - RV Lead (#[id number]): Sensing 6.6 mV, Pacing threshold 0.75 V at 0.4 ms Imp 456 Ohm - LV Lead (#[id number] S/N [id number]): Sensing NA mV, Pacing threshold 1.0 V at 0.4 ms, Imp 418 Ohm - Device: OBSTETRICIAN AND GYNAECOLOGIST-D ([employer]olt HF Quad #[id number] S/N [id number]), programmed DDD 60-130 BPM - Zones: VF> 200BPM ATP during charge then shocks VT monitor >171 BPM Conclusions: 1. Successful placement of a biventricular pacing defibrillator 2. Coronary sinus venography 3. Subclavian venography Recommendations: 1. Admit to same hospital bed 2. Portable chest x-ray in holding area. PA/lateral chest x-ray in the morning. 3. IV antibiotics while the patient is admitted, oral antibiotics for one week on discharge. 4. Device interrogation in the morning. 5. Follow-up will be arranged in the [facility] 7-10 days post-discharge Lucy Meyer MD Clinical Cardiac Pop Singer X-ray chest 2 views Result Date: 08/05/2024 Narrative: EXAMINATION: 2 view chest radiograph Impression: Comparison is made to prior chest radiograph dated 08/04/2024 Sternotomy plate are unchanged. 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 Small left pleural effusion is similar to prior study. No pneumothorax. Stable heart size. Electronically signed by: Razia Schroeder M.D. X-ray chest 1 view (Portable) Result Date: 08/04/2024 Narrative: EXAMINATION: 1 view chest radiograph Impression: The current study is compared with the prior radiograph dated 08/01/2024. Interval placement of left chest tube subclavian approach pacer/defibrillator with leads in the right atrium, right ventricle, and cardiac vein. Interval removal of right internal jugular venous catheter. Sternotomy plates and screws with unchanged alignment. Epicardial pacing wires present. Low lung volumes bilaterally. Small left pleural effusion with some associated atelectasis. No pneumothorax. Stable cardiomediastinal silhouette. Dictated by: Jerrod Ortiz MD The radiology attending physician has personally reviewed this study, and had reviewed and/or edited this written report and agrees with it.Electronically signed by: Serafin Terrell M.D. Transthoracic Echo (TTE) Limited/Followup Result Date: 08/03/2024 Narrative: Patient name: Abiel Fink Date of test: 08/03/2024 Type of test: Limited TTE Hospital #:0 Date of : 1950 (M) Oiler Helper: Jojo Chapa RDCS Referring Physician: CALEB ELIZABETH MD Contrast Agent: 0.8 ml Optison Administered, (2.2 ml wasted). Contrast Administered by: IN FLIGHT REFUELING MANAGER Supervised/Interpreted by: Eric Roberts MD Diagnosis: chf Location: [facility] Reason for test: Evaluate LV prior to PPM placement MV Structure: Normal, MV Motion: Normal, Mitral Annulus: calcified AV Structure: tricuspid and is Normal, AV Motion: Normal Aotic root: Normal, TM: Normal, PV: Normal Valvular Vege tations: none seen, Mass/Thrombi: none seen RA: Normal Measurements: M-Mode Normal Aotic Root: <3.8 LA: <4.0 RV: <2.8 LV(ED): <5.7 LV(ES): Variable 2D Linear Normal Aotic Root: <4.0 Ao Indexed: <2.0 LA: <4.0 RV: <4.2 LV(ED): 6.2 cm <5.9 LV(ES): 5.2 cm <4.0 2D Vol. Normal Indexed Indexed Normal RA: 11-39 LA: 16-34 RV: <12.7 LV(ED): 150.0 ml 62-150 68.6 ml/M2 <75 LV(ES): 111.0 ml 21-61 50.8 ml/M2 <32 3D Vol. Indexed Normal LV(ED): <75 LV(ES): <32 LV EF: 26 % (Mod. Gooden's) (Normal: >=52%) LV Septum: 0.7 cm (Normal: <1.0 cm) Wall Motion Scoring (1=Normal 2=Hypo 3=Akinetic 4=Dyskin./Aneurysm 0=Not visualized) Parasternal Long [place]:MAS=2 BAS=2 MIL=2 LORNE=2 Parasternal Short [place]:MAS=2 MIS=2 DC=2 MIL=2 MAL=2 MA=2 Apical 4 Chambers:=2 MIS=2 BIS=2 BAL=2 MAL=2 AL=2 AC=2 Apical 2 Chambers:AI=2 DC=2 BI=2 BA=2 MA=2 AA=2 AC=2 LV Global Longitudinal Strain: RV Global Longitudinal Strain: LV Function: Severe Global reductionin LV Ejection Fraction (EF<30%); EF via modified Gooden's. (NOTE: If patient has irreversible LV Cardiac Dysfunction with EF<30%, they are at risk for Sudden Cardiac .) RV Function: Normal Septal Motion: paradoxic Pericardial Effusion: none seen Atrial Septum: Normal DOPPLER/COLOR FLOW DOPPLER RESULTS: DiastolicFunction: indeterminate Tricuspid Valve: mild TV regurgitation Pulmonic Valve: Mild MD AV Regurgitation: Mid AR AV Stenosis: AV Area: cm2 AV Pressure Gradient (mmHg): Mean: 0, Peak:0 MV Regurgitation: Mod MR MV Stenosis: MV Area: cm2 MV Pressure Gradient (mmHg): Mean: 0 MV ERO: cm Regurg. Vol.: ml/b eat Regurg. Frac.: % PA Pressure: 30-35 mmHg DOPPLER/COLOR FOLOW DOPPLER COMMENTS: Mid AR, Mod MR, mild TV regurgitation, Mild MD. Diastolic function: indeterminate CONTRAST: 0.8 ml Optison Administered, (2.2 ml wasted). ------ SUMMARY: Technically difficult study. Midly enlagred LV size and decreased systolic function with LVEF 26%. Paradoxical septum wall motion abnormality Likely normal RV fucntion. LA is moderately dilated. Mod MR. Trace pericardial effusion. No previous study for the comparison. Confirmed on 08/03/2024 - 16:04:01 by Eric Roberts MD By signing this report, the attending hospitality director certifies that he or she has personally supervised and interpreted the echocardiogram and has reviewed and or edited and agrees with the written comments contained within the report. ASSESSMENT & PLAN Principal Problem: Acute cholecystitis Active Problems: Coronary artery disease due to calcified coronary lesion Complete heart block (CMS/HCC) (HCC) DM2 (diabetes mellitus, type 2) (HCC) # RUQ ultrasound for further evaluation as CBC normal ABX Cardiology consult in lieu of elevated troponins and unsure of operative risk due to recent CABG Will follow Care plan discussed with the patient. Total time reviewing above and examining the patient 45 mintues Momo Epstein MD 09/02/2024 10:22 AM Source Note - Momo Epstein MD - 09/02/2024 10:21 AM CDT General Surgery Consult Note 09/02/2024 Patient: Abiel Fink 74 y.o. male Date of : 1950 Primary Care Physician: Juan Retana MD Attending Provider: Deanna Bangura MD Referred by: Harmeet Alejandre NP Admission Date: 09/01/2024 Date of consult: 09/02/24 Length of Stay: 1 SUBJECTIVE HPI: Abiel Fink is a 74 y.o. male who presented to outside facility hospital with complaints of pain. Was seen in [facility] and was diagnosed with cholecystitis. Patient was recently admitted to the hospital and discharged on 08/11/2024 status post CABG x3 on 07/24 and permanent pacemaker regular implantation on 08/04. Surgeon from [facility] did not agree to do the surgery recommended transferring patient to [place] given the recent CT surgery. Outside facility workup was notable for mild metabolic acidosis with elevated LFTs and total bilirubin 1.4. Mild hypomagnesemia, leukocytosis WBC 11.5, baseline anemia, with hemoglobin 8.8 and hematocrit 30.0. INR 1.5 Troponins mildly elevated . Per outside record review patient initially was in hospital, noted to have elevated troponins. Was referred for admission for NSTEMI, however patient left AMA with oral Augmentin which he did not take. He returned next day with complaints of worsening of pain, fever, and shortness of breath. Repeat troponin showed interval increase troponin level to 0088.ew of Systems OBJECTIVE Past Medical History: Diagnosis Date Asthma Diabetes mellitus (HCC) GERD (gastroesophageal reflux disease) HH (hiatus hernia) Hypertension Sleep apnea pt uses CPAP machine nightly Past Surgical History: Procedure Laterality Date KIDNEY SURGERY 1960 MULTIPLE TOOTH EXTRACTIONS TOTAL KNEE ARTHROPLASTY Left 2017 TOTAL KNEE ARTHROPLASTY Right 2019 Allergies as of 08/31/2024 - Reviewed 08/15/2024 Allergen Reaction Noted Tramadol Itching 06/11/2020 Family History Problem Relation Age of Onset Cardiomyopathy Mother Anesthesia problems Neg Hx Malig Hypertension Neg Hx Malig Hyperthermia Neg Hx Pseudochol deficiency Neg Hx Social History Tobacco Use Smoking status: Former Current packs/day: 0.00 Average packs/day: 1.5 packs/day for 19.6 years (29.4 ttl pk-yrs) Types: Cigarettes Start date: 1960 Quit date: 06/11/1980 Years since quittin.2 Passive exposure: Past Smokeless tobacco: Never Substance and Sexual Activity Drug use: Not Currently Sexual activity: Defer Alcohol Use: Not At Risk (07/24/2024) AUDIT-C Frequency of Alcohol Consumption: Monthly or less Average Number of Drinks: 1 or 2 Frequency of Binge Drinking: Never CURRENT MEDICATIONS Scheduled Medications Continuous Medications PRN Medications [Held by Provider] aspirin, 81 mg, oral, Daily atorvastatin, 80 mg, oral, Daily bumetanide, 0.5 mg, oral, Daily carvediloL, 3.125 mg, oral, BID with meals (bkfst, dinner) [Held by Provider] DULoxetine DR, 60 mg, oral, QAM heparin, 5,000 Units, subcutaneous, Q8H HILDA isosorbide mononitrate ER, 15 mg, oral, Daily pantoprazole DR, 40 mg, oral, Daily piperacillin-tazobactam, 3.375 g, intravenous, Q6H HILDA pregabalin, 100 mg, oral, BID sodium chloride 0.9%, 0.5-20 mL, intra-catheter, Q8H HILDA sodium chloride 0.9%, 0.5-20 mL, intra-catheter, Q8H HILDA Continuous Medications Medication Dose Last Rate Lactated Ringer's (LR) infusion 75 mL/hr 75 mL/hr (09/02/24 0644) sodium chloride 0.9% infusion 75 mL/hr 75 mL/hr (09/01/24 1849) acetaminophen albuterol HFA bisacodyl EC OR bisacodyL sodium chloride 0.9% sodium chloride 0.9% HYDROcodone-acetaminophen HYDROmorphone ondansetron ODT OR ondansetron polyethylene glycol sodium chloride 0.9% sodium chloride 0.9% VITAL SIGNS Vitals: 09/01/24200509/02/24 0006 09/02/24 0448 09/02/24 0810 BP: 146/66 144/65 115/75 121/75 BP Location: Left arm Patient Position: HOB 30 degrees Pulse: 94 90 88 89 Resp: 18 18 18 20 Temp: 36.9 ??C (98.4 ??F) 37.1 ??C (98.7 ??F) 36.7 ??C (98.1 ??F) 36.9 ??C (98.5 ??F) TempSrc: Oral SpO2: 96% 94% 95% 98% PHYSICAL EXAM Constitutional: Alert. Cooperative. In no apparent distress. HEENT: Normocephalic. Atraumatic. Moist mucous membranes. Sclera are anicteric. Neck: Supple. Normal ROM. Cardiac: Heart is regular rate and rhythm. Chest: Normal respirations Abdomen: soft with mild RUQ pain Neurologic: Spontaneously moves all extremities. No focal deficits. Psych: normal affect, mood, judgement Extremities are warm, without edema. DIAGNOSTICS Recent Labs Lab Units 09/02/24 0611 WBC K/cumm 5.8 HEMOGLOBIN g/dL 7.9* HEMATOCRIT % 27.3* PLATELETS K/cumm 186 Recent Labs Lab Units 09/02/24 0611 09/01/242112 SODIUM mmol/L 140 138 POTASSIUM PLASMA mmol/L 3.5 3.5 PHOSPHORUS PLASMA mg/dL 2.3 2.0* CHLORIDE mmol/L 106 105 CO2 mmol/L 21* 22 ANIONGAP mmol/L 13 11 BUN SERUM mg/dL 14 14 CREATININE mg/dL 0.74* 0.76* CALCIUM mg/dL 7.7* 8.1* ALBUMIN g/dL 2.7* 3.1* ALK PHOS Units/L 146* 148* ALT Units/L 23 26 AST Units/L 38 40 BILIRUBIN TOTAL mg/dL 0.7 0.8 Recent Labs Lab Units 09/02/24 0611 09/01/242112 GLUCOSE mg/dL 100 110 Lab Results Component Value Date INR 1.44 (H) 07/24/2024 ECG 12 lead Result Date: 09/02/2024 Narrative: Vent Rate: 92 bpm RR Interval: 650 msec MD Interval: 154 msec QRS Duration: 151 msec QT Interval: 406 msec QTC Interval: 456 msec P-R-T [place]: 37 - 267 - 106 degrees IMPRESSION: ELECTRONIC VENTRICULAR PACEMAKER ABNORMAL RHYTHM ECG Electronically Signed By: DEVICE CHECK - IN OFFICE Result Date: 08/15/2024 Narrative: Interpretation Summary: Battery and Leads (BL) Normal parameters noted on battery and lead(s) --- Estimated battery longevity 8.3 years. Presenting Rhythm (MD) Atrial Sensing-BiVentricularPacing (-BiVP) --- /BiVP 85 bpm. Underlying /VS, COMPLETE HEART BLOCK 40 bpm. Arrhythmic events (AE) No new arrhythmic events in monitoring period Transmission Information (TI) Device Summary Report Implantable Cardiac Device Result Date: 08/05/2024 Narrative: Patient Name: Abiel Fink Date of : 1950 Primary Physician: @PCP@ Procedure Date: @ADMITDT@ Name of procedure: 1. Placement of a Biventricular Pacing ICD 2. Selective Coronary Sinus Venography 3. Subclavian venography History: 1) CAD -Symptoms of GARCÍA -s/p CABG BURGESS-LAD, left radial-OM, SVG-PDA) 07/24/2024 2) AV block -History of second degree AV block, CHB post op -Given CHB and LVEF 26%, presented for OBSTETRICIAN AND GYNAECOLOGIST-D 08/04/2024. 3) ICM -LVEF 40-50% pre op, with RV dysfunction (EMILE) -TTE 08/03/2024 with LVEF of 26% and likely normal RV 4) Mitralregurgitation -Mod MR pre-op -TTE 08/03/2024 mod MR 5) HTN 6) DM Methods: After informed consent wasobtained, the patient was brought to the EP laboratory in a postabsorptive, nonsedated state. Peripheral IV access was established. Prophylactic antibiotics were administered prior to incision. Continuous ECG, blood pressure, and pulse oximetry were initiated. Cardioversion patch electrodes were placed on the patient's chest and back. A grounding patch was applied to the skin. Sedation was administered by anesthesia. In order to define the extrathoracic portion of the subclavian vein and exclude significant venous obstruction or anomalous anatomy, subclavian venography was performed prior to the procedure. Using the patient's left upper ext peripheral IV, contrast was injected and images were recorded. The left subclavian vein and SVC were found to be widely patent. The left chest was prep ared and draped in a sterile fashion. Local anesthesia was injected in the subcutaneous tissue in the infraclavicular area. An incision was made medial to the deltopectoral groove and parallel to theclavicle. The subcutaneous tissue was dissected the level of the prepectoral fascia. A subcutaneouspocket was created. Under fluoroscopic guidance and with the assistance of the images from the venogram, three separate venipunctures were made using micropuncture and modified Seldinger technique. These was performed in the extrathoracic portion of the subclavian vein. Guidewires were passed. Peel-away sheaths were placed, and were used to advance the leads into the circulation. Using fluoroscopic guidance, the leads were positioned. The RV lead was advanced to the RV outflow tract. Ventricular ectopy was recorded. Images were taken in SHELL and MACEDONIAN views to ensure appropriate lead placement. The lead tip was subsequently positioned in the RV apex. Adequate sensing and pacing parameters werefound, and no diaphragmatic stimulation was seen with high-output pacing. Next, the LV pacing lead was placed. The coronary sinus was intubated with an extended hook outer CS sheath and hydrophilic wire. Selective coronary sinus venography was performed, demonstrating the presence of a suitable postero lateral branch (lateral and anterolateral were very small). A quadripolar lead was positioned in this branch over a whisper EDS wire. Adequate sensing and pacing parameters were found, and no diaphragmatic stimulation was seen with high-output pacing. Next, the right atrial lead was positioned in the right atrial appendage. Adequate sensing and pacing parameters were found, and no diaphragmatic stimulation was seen with high-output pacing. All sheaths were split, and the leads were secured to the fascia with Ethibond ties. The pocket was flushed with antibiotic solution and hemostasis wasassured. Floseal was applied. The generator was connected to the leads and placed inside the pocket. Antibiotic envelope was used.The wound was closed with 3 running layers of absorbable suture, and steristrips were applied. Defibrillator function testing was deferred. Following the procedure, the p atient was taken to the recovery area in stable condition. A chest x-ray was obtained in the holding area. Lead parameters and device programming: - RA Lead (#[id number] S/N [id number]): Sensing 2.5 mV, Pacing threshold 0.75 V at 0.4 ms, Imp 608 Ohm - RV Lead (#[id number]): Sensing 6.6 mV, Pacing threshold 0.75 V at 0.4 ms Imp 456 Ohm - LV Lead (#[id number] S/N [id number]): Sensing NA mV, Pacing threshold 1.0 V at 0.4 ms, Imp 418 Ohm - Device: OBSTETRICIAN AND GYNAECOLOGIST-D (Cobolt HF Quad #[id number] S/N [id number]), programmed DDD 60-130 BPM - Zones: VF> 200BPM ATP during charge then shocks VT monitor >171 BPM Conclusions: 1. Successful placement of a biventricular pacing defibrillator 2. Coronary sinus venography 3. Subclavian venography Recommendations: 1. Admit to same hospital bed 2. Portable chest x-ray in holding area. PA/lateral chest x-ray in the morning. 3. IV antibiotics while the patient is admitted, oral antibiotics for one week on discharge. 4. Device interrogation in the morning. 5. Follow-up will be arranged in the [facility] 7-10 days post-discharge Lucy Meyer MD Clinical Cardiac Pop Singer X-ray chest 2 views Result Date: 08/05/2024 Narrative: EXAMINATION: 2 view chest radiograph Impression: Comparison is made to prior chest radiograph dated 08/04/2024 Sternotomy plate are unchanged. 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 Small left pleural effusion is similar to prior study. No pneumothorax. Stable heart size. Electronically signed by: Razia Schroeder M.D. X-ray chest 1 view (Portable) Result Date: 08/04/2024 Narrative: EXAMINATION: 1 view chest radiograph Impression: The current study is compared with the prior radiograph dated 08/01/2024. Interval placement of left chest tube subclavian approach pacer/defibrillator with leads in the right atrium, right ventricle, and cardiac vein. Interval removal of right internal jugular venous catheter. Sternotomy plates and screws with unchanged alignment. Epicardial pacing wires present. Low lung volumes bilaterally. Small left pleural effusion with some associated atelectasis. No pneumothorax. Stable cardiomediastinal silhouette. Dictated by: Jerrod Ortiz MD The radiology attending physician has personally reviewed this study, and had reviewed and/or edited this written report and agrees with it.Electronically signed by: Serafin Terrell M.D. Transthoracic Echo (TTE) Limited/Followup Result Date: 08/03/2024 Narrative: Patient name: Abiel Fink Date of test: 08/03/2024 Type of test: Limited TTE Hospital #:0 Date of : 1950 (M) Oiler Helper: Jojo Chapa RDCS Referring Physician: CALEB ELIZABETH MD Contrast Agent: 0.8 ml Optison Administered, (2.2 ml wasted). Contrast Administered by: IN FLIGHT REFUELING MANAGER Supervised/Interpreted by: Eric Roberts MD Diagnosis: chf Location: [facility] Reason for test: Evaluate LV prior to PPM placement MV Structure: Normal, MV Motion: Normal, Mitral Annulus: calcified AV Structure: tricuspid and is Normal, AV Motion: Normal Aotic root: Normal, TM: Normal, PV: Normal Valvular Vege tations: none seen, Mass/Thrombi: none seen RA: Normal Measurements: M-Mode Normal Aotic Root: <3.8 LA: <4.0 RV: <2.8LV(ED): <5.7 LV(ES): Variable 2D Linear Normal Aotic Root: <4.0 Ao Indexed: <2.0 LA: <4.0 RV: <4.2 LV(ED): 6.2 cm <5.9 LV(ES): 5.2 cm <4.0 2D Vol. Normal Indexed Indexed Normal RA: 11-39 LA: 16-34 RV: <12.7 LV(ED): 150.0 ml 62-150 68.6 ml/M2 <75 LV(ES): 111.0 ml 21-61 50.8 ml/M2 <32 3D Vol. Indexed Normal LV(ED): <75 LV(ES): <32 LV EF: 26 % (Mod. Gooden's) (Normal: >=52%) LV Septum: 0.7 cm (Normal: <1.0 cm) Wall Motion Scoring (1=Normal 2=Hypo 3=Akinetic 4=Dyskin./Aneurysm 0=Not visualized) Parasternal Long [place]:MAS=2 BAS=2 MIL=2 LORNE=2 Parasternal Short [place]:MAS=2 MIS=2 DC=2 MIL=2 MAL=2 MA=2 Apical 4 Chambers:=2 MIS=2 BIS=2 BAL=2 MAL=2 AL=2 AC=2 Apical 2 Chambers:AI=2 DC=2 BI=2 BA=2 MA=2 AA=2 AC=2 LV Global Longitudinal Strain: RV Global Longitudinal Strain: LV Function: Severe Global reduction in LV Ejection Fraction (EF<30%); EF via modified Gooden's. (NOTE: If patient has irreversible LVCardiac Dysfunction with EF<30%, they are at risk for Sudden Cardiac .) RV Function: NormalSeptal Motion: paradoxic Pericardial Effusion: none seen Atrial Septum: Normal DOPPLER/COLOR FLOW DOPPLER RESULTS: Diastolic Function: indeterminate Tricuspid Valve: mild TV regurgitation Pulmonic Valve: Mild MD AV Regurgitation: Mid AR AV Stenosis: AV Area: cm2 AV Pressure Gradient (mmHg): Mean: 0, Peak:0 MV Regurgitation: Mod MR MV Stenosis: MV Area: cm2 MV Pressure Gradient (mmHg): Mean: 0 MV ERO: cm Regurg. Vol.: ml/beat Regurg. Frac.: % PA Pressure: 30-35 mmHg DOPPLER/COLOR FOLOW DOPPLER COMMENTS: Mid AR, Mod MR, mild TV regurgitation, Mild MD. Diastolic function: indeterminate CONTRAST: 0.8 ml Optison Administered, (2.2 ml wasted). -------- SUMMARY: Technically difficult study. Midly enlagred LV size and decreased systolic function with LVEF 26%. Paradoxical septum wall motion abnormality Likely normal RV fucntion. LA is moderately dilated. Mod MR. Trace pericardial effusion. No previous study for the comparison. Confirmed on 08/03/2024 - 16:04:01 by Eric Roberts MD By signing this report, the attending hospitality director certifies that he or she has personally supervised and interpreted the echocardiogram and has reviewed and or edited and agrees with the written comments contained within the report. ASSESSMENT & PLAN Principal Problem: Acute cholecystitis Active Problems: Coronary artery disease due to calcified coronary lesion Complete heart block (CMS/HCC) ([facility]) DM2 (diabetes mellitus, type 2) ([facility]) # RUQ ultrasound for further evaluation as CBC normal ABX Cardiology consult in lieu of elevated troponins and unsure of operative risk due to recent CABG Will follow Care plan discussed with the patient. Total time reviewing above and examining the patient 45 mintues Momo Huey Epstein MD 09/02/2024 10:22 AM * Kyrie Tucker MD - 09/02/2024 6:16 AM CDT History and Physical Date of Service: 09/02/2024 Primary Care Physician: Juan Retana MD [phone] SUBJECTIVE: Patient is a 74 y.o. male with a PMHx asthma, diabetes, hiatal hernia, hypertension, sleep apnea, coronary artery disease with bradycardia, complete heart block, who presents to the ED with a chief complaint of abdominal pain. HPI: Patient presented to outside facility hospital with complaints of pain. Was seen in [facility] and was diagnosed with cholecystitis. Patient was recently admitted to the hospital and discharged on 08/11/2024 status post CABG x3 on 07/24 and permanent pacemaker regular implantation on 08/04. Surgeon from [facility] did not agree to do the surgery recommended transferring patient to [place] given the recent CT surgery. Outside facility workup was notable for mild metabolic acidosis with elevated LFTs and total bilirubin 1.4. Mild hypomagnesemia, leukocytosis WBC 11.5, baseline anemia, with hemoglobin 8.8 and hematocrit 30.0. INR 1.5 Troponins mildly elevated . Per outside record review patient initially was in hospital, noted to have elevated troponins. Was referred for admission for NSTEMI, however patient left AMA with oral Augmentin which he did not take. He returned next day with complaints of worsening of pain, fever, and shortness of breath. Repeat troponin showed interval increase troponin level to 0088. Outside facility EKG from August 31 demonstrated atrial sensed ventricular paced rhythm. Per chart review, was started on therapeutic dose of Lovenox for concerns of NSTEMI. Per chart review CT abdomen pelvis 1023 demonstrated a she cute cholecystitis, splenomegaly, bilateral small umbilical hernias. Dr.Al Hawkins was consulted, patient was transferred to [facility] further management. Patient is currently on asa 81 and plavix- got asa yesterday morning, but not plavix. Also received 1 time therapeutic dose of Lovenox yesterday . Past Medical History: Diagnosis Date Asthma Diabetes mellitus (HCC) GERD (gastroesophageal reflux disease) HH (hiatus hernia) Hypertension Sleep apnea pt uses CPAP machine nightly Past Surgical History: Procedure Laterality Date KIDNEY SURGERY 1960 MULTIPLE TOOTH EXTRACTIONS TOTAL KNEE ARTHROPLASTY Left 2017 TOTAL KNEE ARTHROPLASTY Right 2019 Medications Prior to Admission Medication Sig Dispense Refill Last Dose albuterol HFA (PROVENTIL HFA,VENTOLIN HFA,PROAIR HFA) 90 mcg/actuation inhaler Inhale 2 puffs every6 (six) hours as needed for wheezing ammonium lactate (AMLACTIN) 12 % cream Apply 1 Application topically as needed for dry skin aspirin 81 mg enteric coated tablet Take 1 tablet (81 mg total) by mouth daily atorvastatin (LIPITOR) 80 mg tablet Take 1 tablet (80 mg total) by mouth daily bumetanide (BUMEX) 1 mg tablet Take 0.5 tablets (0.5 mg total) by mouth carboxymethylcell-glycerin,PF, 0.5-0.9 % drops Administer 1 drop into affected eye(s) as needed (Dry eyes) carvediloL (COREG) 3.125 mg tablet Take 1 tablet (3.125 mg total) by mouth 2 (two) times a day withmeals clopidogreL (PLAVIX) 75 mg tablet Take 1 tablet (75 mg total) by mouth daily DULoxetine DR (CYMBALTA) 60 mg capsule Take 1 capsule (60 mg total) by mouth every morning isosorbide mononitrate ER (IMDUR) 30 mg 24 hr tablet Take 0.5 tablets (15 mg total) by mouth daily magnesium oxide (MAG-OX) 400 mg (241.3 mg elemental magnesium) tablet Take 2 tablets (800 mg total)by mouth 2 (two) times a day MULTIVITAMIN ORAL Take 1 tablet by mouth every morning omeprazole (PriLOSEC) 20 mg capsule Take 1 capsule (20 mg total) by mouth every morning pregabalin (LYRICA) 100 mg capsule Take 1 capsule (100 mg total) by mouth 2 (two) times a day Allergies Allergen Reactions Tramadol Itching Social History Tobacco Use Smoking status: Former Current packs/day: 0.00 Average packs/day: 1.5 packs/day for 19.6 years (29.4 ttl pk-yrs) Types: Cigarettes Start date: 1960 Quit date: 06/11/1980 Years since quittin.2 Passive exposure: Past Smokeless tobacco: Never Substance and Sexual Activity Drug use: Not Currently Sexual activity: Defer Alcohol Use: Not At Risk (07/24/2024) AUDIT-C Frequency of Alcohol Consumption: Monthly or less Average Number of Drinks: 1 or 2 Frequency of Binge Drinking: Never Family History Problem Relation Age of Onset Cardiomyopathy Mother Anesthesia problems Neg Hx Malig Hypertension Neg Hx Malig Hyperthermia Neg Hx Pseudochol deficiency Neg Hx Review of Systems: Positives as stated in HPI. OBJECTIVE: Vitals: Arrival Vitals Temp 09/01/24 1840 37.2 ??C (99 ??F) Pulse 09/01/24 2006 94 Resp 09/01/24 1840 18 BP 09/01/241839 142/80 SpO2 09/01/241839 97 % Temp src 09/01/241839 Oral Heart Rate Source 09/01/241839 Monitor Patient Position 09/01/241839 Lying BP Location 09/01/241839 Left arm FiO2 (%) -- Most Recent : Vitals: 09/01/24 1840 09/01/24 2006 09/02/24 0006 09/02/24 0448 BP: 142/80 146/66 144/65 115/75 BP Location: Left arm Patient Position: Lying Pulse: 94 90 88 Resp: 18 18 18 18 Temp: 37.2 ??C (99 ??F) 36.9 ??C (98.4 ??F) 37.1 ??C (98.7 ??F) 36.7 ??C (98.1 ??F) TempSrc: Oral SpO2: 97% 96% 94% 95% I/O last 2 completed shifts: In: - Out: 100 [Urine:100] I/O this shift: In: - Out: 100 [Urine:100] Physical exam: Physical Exam Vitals and nursing note reviewed. Constitutional: Appearance: He is obese. He is ill-appearing. HENT: Mouth/Throat: Mouth: Mucous membranes are moist. Eyes: General: No scleral icterus. Cardiovascular: Rate and Rhythm: Normal rate and regular rhythm. Pulmonary: Effort: Pulmonary effort is normal. Breath sounds: Normal breath sounds. Abdominal: Palpations: Abdomen is soft. Tenderness: There is abdominal tenderness. There is guarding. Musculoskeletal: Cervical back: Neck supple. Skin: General: Skin is warm and dry. Coloration: Skin is pale. Neurological: General: No focal deficit present. Mental Status: He is alert and oriented to person, place, and time. Lab/Radiology/Diagnostic Review: Recent Results (from the past 24 hour(s)) Comprehensive metabolic panel Collection Time: 09/01/24 9:13 PM Result Value Ref Range Sodium 138 135 - 145 mmol/L Potassium, pl 3.5 3.3 - 4.9 mmol/L Chloride 105 97 - 110 mmol/L CO2 22 22 - 32 mmol/L Anion gap 11 2 - 15 mmol/L BUN 14 6 - 25 mg/dL Creatinine 0.76 (L) 0.80 - 1.30 mg/dL Glucose 110 70 - 199 mg/dL Calcium 8.1 (L) 8.5 - 10.3 mg/dL Bilirubin, total 0.8 0.1 - 1.2 mg/dL Protein, pl 6.6 6.5 - 8.5 g/dL Albumin 3.1 (L) 3.5 - 5.0 g/dL Alk phos 148 (H) 40 - 130 Units/L ALT 26 7 - 55 Units/L AST 40 10 - 50 Units/L Bilirubin, direct Collection Time: 09/01/24 9:13 PM Result Value Ref Range Bilirubin, direct 0.5 (H) 0.1 - 0.3 mg/dL Phosphorus Collection Time: 09/01/24 9:13 PM Result Value Ref Range Phosphorus, pl 2.0 (L) 2.3 - 4.5 mg/dL eGFR Collection Time: 09/01/24 9:13 PM Result Value Ref Range eGFR >90 >=60 mL/min/1.73 m2 DEVICE CHECK - IN OFFICE Result Date: 08/15/2024 Narrative: Interpretation Summary: Battery and Leads (BL) Normal parameters noted on battery and lead(s) --- Estimated battery longevity 8.3 years. Presenting Rhythm (MD) Atrial Sensing-BiVentricularPacing (-BiVP) --- /BiVP 85 bpm. Underlying /VS, COMPLETE HEART BLOCK 40 bpm. Arrhythmic events (AE) No new arrhythmic events in monitoring period Transmission Information (TI) Device Summary Report Implantable Cardiac Device Result Date: 08/05/2024 Narrative: Patient Name: Abiel Fink Date of : 1950 Primary Physician: @PCP@ Procedure Date: @ADMITDT@ Name of procedure: 1. Placement of a Biventricular Pacing ICD 2. Selective Coronary Sinus Venography 3. Subclavian venography History: 1) CAD -Symptoms of GARCÍA -s/p CABG BURGESS-LAD, left radial-OM, SVG-PDA) 07/24/2024 2) AV block -History of second degree AV block, CHB post op -Given CHB and LVEF 26%, presented for OBSTETRICIAN AND GYNAECOLOGIST-D 08/04/2024. 3) ICM -LVEF 40-50% pre op, with RV dysfunction (EMILE) -TTE 08/03/2024 with LVEF of 26% and likely normal RV 4) Mitralregurgitation -Mod MR pre-op -TTE 08/03/2024 mod MR 5) HTN 6) DM Methods: After informed consent wasobtained, the patient was brought to the EP laboratory in a postabsorptive, nonsedated state. Peripheral IV access was established. Prophylactic antibiotics were administered prior to incision. Continuous ECG, blood pressure, and pulse oximetry were initiated. Cardioversion patch electrodes were placed on the patient's chest and back. A grounding patch was applied to the skin. Sedation was administered by anesthesia. In order to define the extrathoracic portion of the subclavian vein and exclude significant venous obstruction or anomalous anatomy, subclavian venography was performed prior to the procedure. Using the patient's left upper ext peripheral IV, contrast was injected and images were recorded. The left subclavian vein and SVC were found to be widely patent. The left chest was prep ared and draped in a sterile fashion. Local anesthesia was injected in the subcutaneous tissue in the infraclavicular area. An incision was made medial to the deltopectoral groove and parallel to theclavicle. The subcutaneous tissue was dissected the level of the prepectoral fascia. A subcutaneouspocket was created. Under fluoroscopic guidance and with the assistance of the images from the venogram, three separate venipunctures were made using micropuncture and modified Seldinger technique. These was performed in the extrathoracic portion of the subclavian vein. Guidewires were passed. Peel-away sheaths were placed, and were used to advance the leads into the circulation. Using fluoroscopic guidance, the leads were positioned. The RV lead was advanced to the RV outflow tract. Ventricular ectopy was recorded. Images were taken in SHELL and MACEDONIAN views to ensure appropriate lead placement. The lead tip was subsequently positioned in the RV apex. Adequate sensing and pacing parameters werefound, and no diaphragmatic stimulation was seen with high-output pacing. Next, the LV pacing lead was placed. The coronary sinus was intubated with an extended hook outer CS sheath and hydrophilic wire. Selective coronary sinus venography was performed, demonstrating the presence of a suitable postero lateral branch (lateral and anterolateral were very small). A quadripolar lead was positioned in this branch over a whisper EDS wire. Adequate sensing and pacing parameters were found, and no diaphragmatic stimulation was seen with high-output pacing. Next, the right atrial lead was positioned in the right atrial appendage. Adequate sensing and pacing parameters were found, and no diaphragmatic stimulation was seen with high-output pacing. All sheaths were split, and the leads were secured to the fascia with Ethibond ties. The pocket was flushed with antibiotic solution and hemostasis wasassured. Floseal was applied. The generator was connected to the leads and placed inside the pocket. Antibiotic envelope was used.The wound was closed with 3 running layers of absorbable suture, and steristrips were applied. Defibrillator function testing was deferred. Following the procedure, the p atient was taken to the recovery area in stable condition. A chest x-ray was obtained in the holding area. Lead parameters and device programming: - RA Lead (#[id number] S/N [id number]): Sensing 2.5 mV, Pacing threshold 0.75 V at 0.4 ms, Imp 608 Ohm - RV Lead (#[id number]): Sensing 6.6 mV, Pacing threshold 0.75 V at 0.4 ms Imp 456 Ohm - LV Lead (#[id number] S/N [id number]): Sensing NA mV, Pacing threshold 1.0 V at 0.4 ms, Imp 418 Ohm - Device: OBSTETRICIAN AND GYNAECOLOGIST-D (Cobolt HF Quad #[id number] S/N [id number]), programmed DDD 60-130 BPM - Zones: VF> 200BPM ATP during charge then shocks VT monitor >171 BPM Conclusions: 1. Successful placement of a biventricular pacing defibrillator 2. Coronary sinus venography 3. Subclavian venography Recommendations: 1. Admit to same hospital bed 2. Portable chest x-ray in holding area. PA/lateral chest x-ray in the morning. 3. IV antibiotics while the patient is admitted, oral antibiotics for one week on discharge. 4. Device interrogation in the morning. 5. Follow-up will be arranged in the [facility] 7-10 days post-discharge Lucy Meyer MD Clinical Cardiac Pop Singer X-ray chest 2 views Result Date: 08/05/2024 Narrative: EXAMINATION: 2 view chest radiograph Impression: Comparison is made to prior chest radiograph dated 08/04/2024 Sternotomy plate are unchanged. 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 Small left pleural effusion is similar to prior study. No pneumothorax. Stable heart size. Electronically signed by: Razia Schroeder M.D. X-ray chest 1 view (Portable) Result Date: 08/04/2024 Narrative: EXAMINATION: 1 view chest radiograph Impression: The current study is compared with the prior radiograph dated 08/01/2024. Interval placement of left chest tube subclavian approach pacer/defibrillator with leads in the right atrium, right ventricle, and cardiac vein. Interval removal of right internal jugular venous catheter. Sternotomy plates and screws with unchanged alignment. Epicardial pacing wires present. Low lung volumes bilaterally. Small left pleural effusion with some associated atelectasis. No pneumothorax. Stable cardiomediastinal silhouette. Dictated by: Jerrod Ortiz MD The radiology attending physician has personally reviewed this study, and had reviewed and/or edited this written report and agrees with it.Electronically signed by: Serafin Terrell M.D. Transthoracic Echo (TTE) Limited/Followup Result Date: 08/03/2024 Narrative: Patient name: Abiel Fink Date of test: 08/03/2024 Type of test: Limited TTE Hospital #:0 Date of : 1950 (M) Oiler Helper: Jojo Chapa RDCS Referring Physician: CALEB ELIZABETH MD Contrast Agent: 0.8 ml Optison Administered, (2.2 ml wasted). Contrast Administered by: IN FLIGHT REFUELING MANAGER Supervised/Interpreted by: Eric Roberts MD Diagnosis: chf Location: [facility] Reason for test: Evaluate LV prior to PPM placement MV Structure: Normal, MV Motion: Normal, Mitral Annulus: calcified AV Structure: tricuspid and is Normal, AV Motion: Normal Aotic root: Normal, TM: Normal, PV: Normal Valvular Vege tations: none seen, Mass/Thrombi: none seen RA: Normal Measurements: M-Mode Normal Aotic Root: <3.8 LA: <4.0 RV: <2.8 LV(ED): <5.7 LV(ES): Variable 2D Linear Normal Aotic Root: <4.0 Ao Indexed: <2.0 LA: <4.0 RV: <4.2 LV(ED): 6.2 cm <5.9 LV(ES): 5.2 cm <4.0 2D Vol. Normal Indexed Indexed Normal RA: 11-39 LA: 16-34 RV: <12.7 LV(ED): 150.0 ml 62-150 68.6 ml/M2 <75 LV(ES): 111.0 ml 21-61 50.8 ml/M2 <32 3D Vol. Indexed Normal LV(ED): <75 LV(ES): <32 LV EF: 26 % (Mod. Gooden's) (Normal: >=52%) LV Septum: 0.7 cm (Normal: <1.0 cm) Wall Motion Scoring (1=Normal 2=Hypo 3=Akinetic 4=Dyskin./Aneurysm 0=Not visualized) Parasternal Long [place]:MAS=2 BAS=2 MIL=2 LORNE=2 Parasternal Short [place]:MAS=2 MIS=2 DC=2MIL=2 MAL=2 MA=2 Apical 4 Chambers:=2 MIS=2 BIS=2 BAL=2 MAL=2 AL=2 AC=2 Apical 2 Chambers:AI=2 DC=2 BI=2 BA=2 MA=2 AA=2 AC=2 LV Global Longitudinal Strain: RV Global Longitudinal Strain: LV Function: Severe Global reduction in LV Ejection Fraction (EF<30%); EF via modified Gooden's. (NOTE: If patient has irreversible LV Cardiac Dysfunction with EF<30%, they are at risk for Sudden Cardiac .) RV Function: Normal Septal Motion: paradoxic Pericardial Effusion: none seen Atrial Septum: Normal DOPPLER/COLOR FLOW DOPPLER RESULTS: Diastolic Function: indeterminate Tricuspid Valve: mild TV regurgitation Pulmonic Valve: Mild MD AV Regurgitation: Mid AR AV Stenosis: AV Area: cm2 AV Pressure Gradient (mmHg): Mean: 0, Peak:0 MV Regurgitation:Mod MR MV Stenosis: MV Area: cm2 MV Pressure Gradient (mmHg): Mean: 0 MV ERO: cm Regurg. Vol.: ml/beat Regurg. Frac.: % PA Pressure: 30-35 mmHg DOPPLER/COLOR FOLOW DOPPLER COMMENTS: Mid AR, Mod MR, mild TV regurgitation, Mild MD. Diastolic function: indeterminate CONTRAST: 0.8 ml Optison Administered, (2.2 ml wasted). ------- SUMMARY: Technically difficult study. Midly enlagred LV size and decreased systolic function with LVEF 26%. Paradoxical septum wall motion abnormality Likely normal RV fucntion. LA is moderately dilated. Mod MR. Trace pericardial effusion. No previous study for the comparison. Confirmed on 08/03/2024 - 16:04:01 by Eric Roberts MD By signing this report, the attending hospitality director certifiesthat he or she has personally supervised and interpreted the echocardiogram and has reviewed and or edited and agrees with the written comments contained within the report. ASSESSMENT/PLAN: Principal Problem: Acute cholecystitis Patient received Zosyn at outside facility. Will obtain blood cultures here. Continue Zosyn. Trend CBC, lactate. Continue IV fluids. Replete electrolytes as needed. Active Problems: Coronary artery disease due to calcified coronary lesion NSTEMI He is status post recent CABG x3 Holding aspirin and Plavix due to anticipated surgery. Patient was given dose of therapeutic Lovenox in outside facility. Patient troponins were trending up at outside facility hospital however no repeat EKGs were obtained to compare dynamics. Repeat EKG telemetry monitoring Consult cardiology in a.m.. Continue statin. Resume Bumex, isosorbide, and Coreg Complete heart block (CMS/HCC) ([facility]) Status post permanent pacemaker implantation. DM2 (diabetes mellitus, type 2) ([facility]) Holding oral hypoglycemics. Started on SSI. These fluid and electrolyte abnormalities are being treated, evaluated or monitored: Hypomagnesemia--replace and monitor Principal Problem: Acute cholecystitis Active Problems: Coronary artery disease due to calcified coronary lesion Complete heart block (CMS/HCC) (HCC) DM2 (diabetes mellitus, type 2) ([facility]) Full Code The patient is asked to make an attempt to improve diet and exercise patterns to aid in medical management of this problem. DVT PPX GI PPX PPI ESTIMATED LENGTH OF STAY: More than 2 midnights I have seen and examined the patient on 09/02/2024 MDM high complexity Kyrie Tucker MD 09/02/2024 6:16 AM documented in this encounter Procedure Notes * Milton Mclean MD - 09/05/2024 2:20 PM CDTAssociated Order(s): ERCP ENDOSCOPY LAB Patient Name: Abiel Fink Procedure Date: 09/05/2024 2:20 PM Admit Type: Inpatient Room: [facility] Date of : 1950 Instrument Name: [id number] Gender: Male Note Status: Finalized Procedure: ERCP Indications: Bile leak Providers: Milton Mclean M.D. Referring MD: Juan Connolly M.D. Medicines: Monitored Anesthesia Care, Indomethacin 100 mg MD Complications: No immediate complications. Estimated Blood Loss: Estimated blood loss: none. Procedure: Pre-Anesthesia Assessment: - The risks and benefits of the procedure and the sedation options and risks were discussed with the patient. All questions were answered and informed consent was obtained. - Immediately prior to administration of medications, the patient was re-assessed for adequacy to receive sedatives. The benefits, risks, and alternatives to the procedure and sedation were discussed and informed consent was obtained. The TJF-[id number] was introduced through the mouth, and used to inject contrast into and used to inject contrast into the bile duct and ventral pancreatic duct. The ERCP was accomplished without difficulty. The patient tolerated the procedure well. Findings: A bargain table clerk film of the abdomen was obtained. One percutaneous drain ending in the Right upper quadrant was seen. The esophagus was successfully intubated under direct vision without detailed examination of the pharynx, larynx, and associated structures, and upper GI tract. The upper GI tract was grossly normal. The major papilla was normal. On initial attempt to cannulate the bile duct, the ventral pancreatic duct was deeply cannulated with the short-nosed traction sphincterotome. Contrast was injected. I personally interpreted the pancreatic duct images. Ductal flow of contrast was adequate. Image quality was adequate. Contrast extended to the pancreatic duct. An incomplete pancreas divisum was identified. A 0.035 inch x 260 cm straight Dreamwire was passed into the ventral pancreatic duct and left in place to cannulate via the double wire technique. A 0.025 inch x 450 cm straight Visiglide wire was passed into the biliary tree. The short-nosed traction sphincterotome was passed over the guidewire and the bile duct was then deeply cannulated. Contrast was injected. Extravasation of contrast originating from the gallbladder was observed. The common bile duct was otherwise normal and measured 4 mm in greatest dimension. A 6 mm biliary sphincterotomy was made with a traction (standard) sphincterotome using ERBE electrocautery. There was no post-sphincterotomy bleeding. To discover objects, the biliary tree was swept with an 11.5 mm balloon starting at the upper third of the main bile duct. Nothing was found. One 10 Fr by 7 cm plastic stent with a single external flap and a single internal flap was placed into the common bile duct. Bile flowed through the stent. The stent was in good position. One 5 Fr by 3 cm plastic stent with a 3/4 external pigtail was placed into the ventral pancreatic duct. Bile flowed through the stent. The stent was in good position. The endoscope was withdrawn from the patient. Impression: - A leak was found from the gallbladder. Treated with biliary sphincterotomy and the placement of a plastic stent. - Pancreas divisum was found. A protective pancreatic duct stent was placed to reduce the risk of post ERCP pancreatitis. Recommendation: - Observe patient's clinical course. - Watch for pancreatitis, bleeding, perforation, and cholangitis. - Avoid aspirin and nonsteroidal anti-inflammatory medicines for 10 days. - Return [facility] to [facility] for [facility] care. - Repeat ERCP in 3 months to remove stent. - KUB in 14 days to assess for pancreatic duct stent passage. If still in place schedule EGD for removal. - NPO x 4 hours, then clear liquids only today. Attending Participation: I personally performed the entire procedure. Electronically signed by Milton Mclean M.D. Milton Mclean M.D. 09/05/2024 4:02:36 PM This document was signed electronically. Number of Addenda: 0 Note Initiated On: 09/05/2024 2:20 PM Scope In: Scope Out: documented in this encounter Consult Notes * Clarissa Beckham, PHP [employer]ORD[employer] DEVELOPER - 09/05/2024 8:07 AM CDT Gastroenterology Consult SUBJECTIVE Patient is a 74 y.o. male with chief complaint of abd pain. Reason for consult: Need for ERCP and stenting, high risk for bile leak after laparoscopic subtotalfenestrated cholecystectomy HPI: 74yo with history coronary artery disease, recent CABG & pacemaker placement who presented to OSH with abdominal pain & elevated LFTs. Found to have acute cholecystitis and yesterday had laparoscopic subtotal fenestrated cholecystectomy for treatment of acute gangrenous perforated cholecystitis. GI has been consulted for stent placement since patient at high risk for a bile leak. Patient describes pain at the surgical incisions. Previous nausea and vomiting have resolved. Denies fever, sweats and chills. Reports urine had been dark, BMs dark as well. Denies unintentional weight loss. Currently NPO. Passing flatus. Past Medical History: Diagnosis Date Asthma Diabetes mellitus (HCC) GERD (gastroesophageal reflux disease) HH (hiatus hernia) Hypertension Sleep apnea pt uses CPAP machine nightly Acute gangrenous perforated cholecystitis CAD, ischemic cardiomyopathy Complete heart block NSTEMI Past Surgical History: Procedure Laterality Date KIDNEY SURGERY 1960 MULTIPLE TOOTH EXTRACTIONS TOTAL KNEE ARTHROPLASTY Left 2017 TOTAL KNEE ARTHROPLASTY Right 2019 Laparoscopic subtotal fenestrated cholecystectomy CABG 07/24/24 Pacemaker placement 08/04/24 Medications Prior to Admission Medication Sig Dispense Refill Last Dose albuterol HFA (PROVENTIL HFA,VENTOLIN HFA,PROAIR HFA) 90 mcg/actuation inhaler Inhale 2 puffs every6 (six) hours as needed for wheezing ammonium lactate (AMLACTIN) 12 % cream Apply 1 Application topically as needed for dry skin aspirin 81 mg enteric coated tablet Take 1 tablet (81 mg total) by mouth daily atorvastatin (LIPITOR) 80 mg tablet Take 1 tablet (80 mg total) by mouth daily bumetanide (BUMEX) 1 mg tablet Take 0.5 tablets (0.5 mg total) by mouth carboxymethylcell-glycerin,PF, 0.5-0.9 % drops Administer 1 drop into affected eye(s) as needed (Dry eyes) carvediloL (COREG) 3.125 mg tablet Take 1 tablet (3.125 mg total) by mouth 2 (two) times a day withmeals clopidogreL (PLAVIX) 75 mg tablet Take 1 tablet (75 mg total) by mouth daily DULoxetine DR (CYMBALTA) 60 mg capsule Take 1 capsule (60 mg total) by mouth every morning isosorbide mononitrate ER (IMDUR) 30 mg 24 hr tablet Take 0.5 tablets (15 mg total) by mouth daily magnesium oxide (MAG-OX) 400 mg (241.3 mg elemental magnesium) tablet Take 2 tablets (800 mg total)by mouth 2 (two) times a day MULTIVITAMIN ORAL Take 1 tablet by mouth every morning omeprazole (PriLOSEC) 20 mg capsule Take 1 capsule (20 mg total) by mouth every morning pregabalin (LYRICA) 100 mg capsule Take 1 capsule (100 mg total) by mouth 2 (two) times a day Allergies Allergen Reactions Tramadol Itching Family History Problem Relation Age of Onset Cardiomyopathy Mother Anesthesia problems Neg Hx Malig Hypertension Neg Hx Malig Hyperthermia Neg Hx Pseudochol deficiency Neg Hx Social History Tobacco Use Smoking status: Former Current packs/day: 0.00 Average packs/day: 1.5 packs/day for 19.6 years (29.4 ttl pk-yrs) Types: Cigarettes Start date: 1960 Quit date: 06/11/1980 Years since quittin.2 Passive exposure: Past Smokeless tobacco: Never Substance and Sexual Activity Drug use: Not Currently Sexual activity: Defer Alcohol Use: Not At Risk (07/24/2024) AUDIT-C Frequency of Alcohol Consumption: Monthly or less Average Number of Drinks: 1 or 2 Frequency of Binge Drinking: Never Review of Systems: Constitutional-Denies fever, sweats or chills. Denies unintentional weight loss Skin-No reported jaundice or pruritis Respiratory-No reported SOB Cardiovascular-No reported Chest Pain GI-as noted in HPI -c/o dark urine Vitals: 24hr Min/Max: Temp Min: 36.2 ??C (97.1 ??F) Max: 36.7 ??C (98 ??F) Pulse Min: 73 Max: 83 BP Min: 117/65 Max: 159/75 Resp Min: 15 Max: 24 SpO2 Min: 92 % Max: 100 % Most Recent : Vitals: 09/05/24 0419 BP: 142/72 Pulse: 73 Resp: 20 Temp: 36.4 ??C (97.6 ??F) SpO2: 93% OBJECTIVE Physical Exam: Physical Exam Constitutional: General: He is not in acute distress. HENT: Head: Normocephalic and atraumatic. Cardiovascular: Comments: Scabs noted over distal chest incisions Pulmonary: Effort: Pulmonary effort is normal. Abdominal: General: There is no distension. Palpations: Abdomen is soft. Tenderness: There is abdominal tenderness. Comments: Surgical CINTIA drain in place. RN reports a lot of output after surgery but output has been slowing. Only a small amount of serous appearing fluid in the CINTIA drain currently. Laparoscopic incisions intact. Pelvic ecchymosis noted. Skin: General: Skin is warm and dry. Coloration: Skin is not jaundiced. Neurological: Mental Status: He is alert. Lab/Radiology/Diagnostic Review: Recent Labs Lab Units 09/05/24 0640 09/04/24 0529 09/03/24 0633 WBC K/cumm 7.1 4.9 5.2 HEMOGLOBIN g/dL 10.0* 7.6* 8.2* HEMATOCRIT % 34.3* 26.2* 28.6* PLATELETS K/cumm 185 192 173 Recent Labs Lab Units 09/05/24 0527 09/05/24 0429 09/04/24 2346 09/04/24 0752 09/04/24 0529 09/04/24 0001 09/03/24 0633 SODIUM mmol/L 139 -- -- -- 139 -- 139 POTASSIUM PLASMA mmol/L 4.3 -- -- -- 3.3 -- 3.5 CHLORIDE mmol/L 105 -- -- -- 106 -- 107 CO2 mmol/L 22 -- -- -- 22 -- 21* ANIONGAP mmol/L 12 -- -- -- 11 -- 11 GLUCOSE mg/dL 139 -- -- -- 115 -- 92 POC GLUCOSE MONITOR mg/dL -- 164 147 < > -- < > -- BUN SERUM mg/dL 12 -- -- -- 11 -- 13 CREATININE mg/dL 0.83 -- -- -- 0.81 -- 0.77* CALCIUM mg/dL 8.3* -- -- -- 8.0* -- 7.9* ALBUMIN g/dL 3.1* -- -- -- 2.8* -- 2.4* ALK PHOS Units/L 175* -- -- -- 176* -- 149* ALT Units/L 24 -- -- -- 23 -- 23 AST Units/L 42 -- -- -- 45 -- 43 BILIRUBIN TOTAL mg/dL 0.5 -- -- -- 0.4 -- 0.6 < > = values in this interval not displayed. No results found for: LIPASE 09/02 US IMPRESSION: 1. Gallbladder sludge with nonspecific wall thickening. No pericholecystic fluid or sonographic Rothman sign. Normal appearance of the biliary system. 2. Cirrhotic liver with perihepatic ascites. Patent portal vein with appropriate directional flow. ASSESSMENT/PLAN 74yo with history coronary artery disease, recent CABG & pacemaker placement who presented withabdominal pain. Found to have acute cholecystitis and 09/04 had laparoscopic subtotal fenestrated cholecystectomy for treatment of acute gangrenous perforated cholecystitis. GI has been consulted forstent placement since patient at high risk for a bile leak. WBC 7.1, afebrile Hemoglobin 10.0, transfused 1 unit of PRBCs on 09/04 Elevated alk-phos with normal total bilirubin and transaminases 09/02 Blood Cxs-NGTD 09/04 bile culture-preliminary result, no organisms seen -Plavix & ASA remain on hold -ERCP today, reviewed in detail with patient and he is agreeable to proceed. Discussed stent placement and the need for outpatient removal. -JUSTYNO Clarissa Beckham NP 09/05/2024 This note was transcribed using [employer] Speech Recognition software. As a result, there may be unintended grammar and spelling errors. Every attempt is made to have correct dictation. If there are any questions or major errors, please contact me. Cosigned by Milton Mclean MD at 09/05/2024 2:29 PM CDT Associated attestation - Milton Mclean MD - 09/05/2024 2:29 PM CDT I have seen and examined the patient on 09/05/24. I agree with the findings and plan of care as documented by the PHP [employer] DEVELOPER.. * Momo Epstein MD - 09/02/2024 10:21 AM CDT General Surgery Consult Note 09/02/2024 Patient: Abiel Fink 74 y.o. male Date of : 1950 Primary Care Physician: Juan Retana MD Attending Provider: Deanna Bangura MD Referred by: Harmeet Alejandre NP Admission Date: 09/01/2024 Date of consult: 09/02/24 Length of Stay: 1 SUBJECTIVE HPI: Abiel Fink is a 74 y.o. male who presented to outside facility hospital with complaints of pain. Was seen in [facility] and was diagnosed with cholecystitis. Patient was recently admitted to the hospital and discharged on 08/11/2024 status post CABG x3 on 07/24 and permanent pacemaker regular implantation on 08/04. Surgeon from [facility] did not agree to do the surgery recommended transferring patient to [place] given the recent CT surgery. Outside facility workup was notable for mild metabolic acidosis with elevated LFTs and total bilirubin 1.4. Mild hypomagnesemia, leukocytosis WBC 11.5, baseline anemia, with hemoglobin 8.8 and hematocrit 30.0. INR 1.5 Troponins mildly elevated . Per outside record review patient initially was in hospital, noted to have elevated troponins. Was referred for admission for NSTEMI, however patient left AMA with oral Augmentin which he did not take. He returned next day with complaints of worsening of pain, fever, and shortness of breath. Repeat troponin showed interval increase troponin level to 0088.ew of Systems OBJECTIVE Past Medical History: Diagnosis Date Asthma Diabetes mellitus (HCC) GERD (gastroesophageal reflux disease) HH (hiatus hernia) Hypertension Sleep apnea pt uses CPAP machine nightly Past Surgical History: Procedure Laterality Date KIDNEY SURGERY 1960 MULTIPLE TOOTH EXTRACTIONS TOTAL KNEE ARTHROPLASTY Left 2017 TOTAL KNEE ARTHROPLASTY Right 2019 Allergies as of 08/31/2024 - Reviewed 08/15/2024 Allergen Reaction Noted Tramadol Itching 06/11/2020 Family History Problem Relation Age of Onset Cardiomyopathy Mother Anesthesia problems Neg Hx Malig Hypertension Neg Hx Malig Hyperthermia Neg Hx Pseudochol deficiency Neg Hx Social History Tobacco Use Smoking status: Former Current packs/day: 0.00 Average packs/day: 1.5 packs/day for 19.6 years (29.4 ttl pk-yrs) Types: Cigarettes Start date: 1960 Quit date: 06/11/1980 Years since quittin.2 Passive exposure: Past Smokeless tobacco: Never Substance and Sexual Activity Drug use: Not Currently Sexual activity: Defer Alcohol Use: Not At Risk (07/24/2024) AUDIT-C Frequency of Alcohol Consumption: Monthly or less Average Number of Drinks: 1 or 2 Frequency of Binge Drinking: Never CURRENT MEDICATIONS Scheduled Medications Continuous Medications PRN Medications [Held by Provider] aspirin, 81 mg, oral, Daily atorvastatin, 80 mg, oral, Daily bumetanide, 0.5 mg, oral, Daily carvediloL, 3.125 mg, oral, BID with meals (bkfst, dinner) [Held by Provider] DULoxetine DR, 60 mg, oral, QAM heparin, 5,000 Units, subcutaneous, Q8H HILDA isosorbide mononitrate ER, 15 mg, oral, Daily pantoprazole DR, 40 mg, oral, Daily piperacillin-tazobactam, 3.375 g, intravenous, Q6H HILDA pregabalin, 100 mg, oral, BID sodium chloride 0.9%, 0.5-20 mL, intra-catheter, Q8H HILDA sodium chloride 0.9%, 0.5-20 mL, intra-catheter, Q8H HILDA Continuous Medications Medication Dose Last Rate Lactated Ringer's (LR) infusion 75 mL/hr 75 mL/hr (09/02/24 0644) sodium chloride 0.9% infusion 75 mL/hr 75 mL/hr (09/01/24 1849) acetaminophen albuterol HFA bisacodyl EC OR bisacodyL sodium chloride 0.9% sodium chloride 0.9% HYDROcodone-acetaminophen HYDROmorphone ondansetron ODT OR ondansetron polyethylene glycol sodium chloride 0.9% sodium chloride 0.9% VITAL SIGNS Vitals: 09/01/24200509/02/24 0006 09/02/24 0448 09/02/24 0810 BP: 146/66 144/65 115/75 121/75 BP Location: Left arm Patient Position: HOB 30 degrees Pulse: 94 90 88 89 Resp: 18 18 18 20 Temp: 36.9 ??C (98.4 ??F) 37.1 ??C (98.7 ??F) 36.7 ??C (98.1 ??F) 36.9 ??C (98.5 ??F) TempSrc: Oral SpO2: 96% 94% 95% 98% PHYSICAL EXAM Constitutional: Alert. Cooperative. In no apparent distress. HEENT: Normocephalic. Atraumatic. Moist mucous membranes. Sclera are anicteric. Neck: Supple. Normal ROM. Cardiac: Heart is regular rate and rhythm. Chest: Normal respirations Abdomen: soft with mild RUQ pain Neurologic: Spontaneously moves all extremities. No focal deficits. Psych: normal affect, mood, judgement Extremities are warm, without edema. DIAGNOSTICS Recent Labs Lab Units 09/02/24 0611 WBC K/cumm 5.8 HEMOGLOBIN g/dL 7.9* HEMATOCRIT % 27.3* PLATELETS K/cumm 186 Recent Labs Lab Units 09/02/24 0611 09/01/24 2113 SODIUM mmol/L 140 138 POTASSIUM PLASMA mmol/L 3.5 3.5 PHOSPHORUS PLASMA mg/dL 2.3 2.0* CHLORIDE mmol/L 106 105 CO2 mmol/L 21* 22 ANIONGAP mmol/L 13 11 BUN SERUM mg/dL 14 14 CREATININE mg/dL 0.74* 0.76* CALCIUM mg/dL 7.7* 8.1* ALBUMIN g/dL 2.7* 3.1* ALK PHOS Units/L 146* 148* ALT Units/L 23 26 AST Units/L 38 40 BILIRUBIN TOTAL mg/dL 0.7 0.8 Recent Labs Lab Units 09/02/24 0611 09/01/24 2113 GLUCOSE mg/dL 100 110 Lab Results Component Value Date INR 1.44 (H) 07/24/2024 ECG 12 lead Result Date: 09/02/2024 Narrative: Vent Rate: 92 bpm RR Interval: 650 msec MD Interval: 154 msec QRS Duration: 151 msec QT Interval: 406 msec QTC Interval: 456 msec P-R-T [place]: 37 - 267 - 106 degrees IMPRESSION: ELECTRONIC VENTRICULAR PACEMAKER ABNORMAL RHYTHM ECG Electronically Signed By: DEVICE CHECK - IN OFFICE Result Date: 08/15/2024 Narrative: Interpretation Summary: Battery and Leads (BL) Normal parameters noted on battery and lead(s) --- Estimated battery longevity 8.3 years. Presenting Rhythm (MD) Atrial Sensing-BiVentricularPacing (-BiVP) --- /BiVP 85 bpm. Underlying /VS, COMPLETE HEART BLOCK 40 bpm. Arrhythmic events (AE) No new arrhythmic events in monitoring period Transmission Information (TI) Device Summary Report Implantable Cardiac Device Result Date: 08/05/2024 Narrative: Patient Name: Abiel Fink Date of : 1950 Primary Physician: @PCP@ Procedure Date: @ADMITDT@ Name of procedure: 1. Placement of a Biventricular Pacing ICD 2. Selective Coronary Sinus Venography 3. Subclavian venography History: 1) CAD -Symptoms of GARCÍA -s/p CABG BURGESS-LAD, left radial-OM, SVG-PDA) 07/24/2024 2) AV block -History of second degree AV block, CHB post op -Given CHB and LVEF 26%, presented for OBSTETRICIAN AND GYNAECOLOGIST-D 08/04/2024. 3) ICM -LVEF 40-50% pre op, with RV dysfunction (EMIEL) -TTE 08/03/2024 with LVEF of 26% and likely normal RV 4) Mitralregurgitation -Mod MR pre-op -TTE 08/03/2024 mod MR 5) HTN 6) DM Methods: After informed consent wasobtained, the patient was brought to the EP laboratory in a postabsorptive, nonsedated state. Peripheral IV access was established. Prophylactic antibiotics were administered prior to incision. Continuous ECG, blood pressure, and pulse oximetry were initiated. Cardioversion patch electrodes were placed on the patient's chest and back. A grounding patch was applied to the skin. Sedation was administered by anesthesia. In order to define the extrathoracic portion of the subclavian vein and exclude significant venous obstruction or anomalous anatomy, subclavian venography was performed prior to the procedure. Using the patient's left upper ext peripheral IV, contrast was injected and images were recorded. The left subclavian vein and SVC were found to be widely patent. The left chest was prep ared and draped in a sterile fashion. Local anesthesia was injected in the subcutaneous tissue in the infraclavicular area. An incision was made medial to the deltopectoral groove and parallel to theclavicle. The subcutaneous tissue was dissected the level of the prepectoral fascia. A subcutaneouspocket was created. Under fluoroscopic guidance and with the assistance of the images from the venogram, three separate venipunctures were made using micropuncture and modified Seldinger technique. These was performed in the extrathoracic portion of the subclavian vein. Guidewires were passed. Peel-away sheaths were placed, and were used to advance the leads into the circulation. Using fluoroscopic guidance, the leads were positioned. The RV lead was advanced to the RV outflow tract. Ventricular ectopy was recorded. Images were taken in SHELL and MACEDONIAN views to ensure appropriate lead placement. The lead tip was subsequently positioned in the RV apex. Adequate sensing and pacing parameters werefound, and no diaphragmatic stimulation was seen with high-output pacing. Next, the LV pacing lead was placed. The coronary sinus was intubated with an extended hook outer CS sheath and hydrophilic wire. Selective coronary sinus venography was performed, demonstrating the presence of a suitable postero lateral branch (lateral and anterolateral were very small). A quadripolar lead was positioned in this branch over a whisper EDS wire. Adequate sensing and pacing parameters were found, and no diaphragmatic stimulation was seen with high-output pacing. Next, the right atrial lead was positioned in the right atrial appendage. Adequate sensing and pacing parameters were found, and no diaphragmatic stimulation was seen with high-output pacing. All sheaths were split, and the leads were secured to the fascia with Ethibond ties. The pocket was flushed with antibiotic solution and hemostasis wasassured. Floseal was applied. The generator was connected to the leads and placed inside the pocket. Antibiotic envelope was used.The wound was closed with 3 running layers of absorbable suture, and steristrips were applied. Defibrillator function testing was deferred. Following the procedure, the p atient was taken to the recovery area in stable condition. A chest x-ray was obtained in the holding area. Lead parameters and device programming: - RA Lead (#[id number] S/N [id number]): Sensing 2.5 mV, Pacing threshold 0.75 V at 0.4 ms, Imp 608 Ohm - RV Lead (#[id number]): Sensing 6.6 mV, Pacing threshold 0.75 V at 0.4 ms Imp 456 Ohm - LV Lead (#[id number] S/N [id number]): Sensing NA mV, Pacing threshold 1.0 V at 0.4 ms, Imp 418 Ohm - Device: OBSTETRICIAN AND GYNAECOLOGIST-D (Cobolt HF Quad #[id number] S/N [id number]), programmed DDD 60-130 BPM - Zones: VF> 200BPM ATP during charge then shocks VT monitor >171 BPM Conclusions: 1. Successful placement of a biventricular pacing defibrillator 2. Coronary sinus venography 3. Subclavian venography Recommendations: 1. Admit to same hospital bed 2. Portable chest x-ray in holding area. PA/lateral chest x-ray in the morning. 3. IV antibiotics while the patient is admitted, oral antibiotics for one week on discharge. 4. Device interrogation in the morning. 5. Follow-up will be arranged in the [facility] 7-10 days post-discharge Lucy Meyer MD Clinical Cardiac Pop Singer X-ray chest 2 views Result Date: 08/05/2024 Narrative: EXAMINATION: 2 view chest radiograph Impression: Comparison is made to prior chest radiograph dated 08/04/2024 Sternotomy plate are unchanged. 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 Small left pleural effusion is similar to prior study. No pneumothorax. Stable heart size. Electronically signed by: Razia Schroeder M.D. X-ray chest 1 view (Portable) Result Date: 08/04/2024 Narrative: EXAMINATION: 1 view chest radiograph Impression: The current study is compared with the prior radiograph dated 08/01/2024. Interval placement of left chest tube subclavian approach pacer/defibrillator with leads in the right atrium, right ventricle, and cardiac vein. Interval removal of right internal jugular venous catheter. Sternotomy plates and screws with unchanged alignment. Epicardial pacing wires present. Low lung volumes bilaterally. Small left pleural effusion with some associated atelectasis. No pneumothorax. Stable cardiomediastinal silhouette. Dictated by: Jerrod Ortiz MD The radiology attending physician has personally reviewed this study, and had reviewed and/or edited this written report and agrees with it.Electronically signed by: Serafin Terrell M.D. Transthoracic Echo (TTE) Limited/Followup Result Date: 08/03/2024 Narrative: Patient name: Abiel Fink Date of test: 08/03/2024 Type of test: Limited TTE Hospital #:0 Date of : 1950 (M) Oiler Helper: Jojo Chapa RDCS Referring Physician: CALEB ELIZABETH MD Contrast Agent: 0.8 ml Optison Administered, (2.2 ml wasted). Contrast Administered by: IN FLIGHT REFUELING MANAGER Supervised/Interpreted by: Eric Roberts MD Diagnosis: chf Location: [facility] Reason for test: Evaluate LV prior to PPM placement MV Structure: Normal, MV Motion: Normal, Mitral Annulus: calcified AV Structure: tricuspid and is Normal, AV Motion: Normal Aotic root: Normal, TM: Normal, PV: Normal Valvular Vege tations: none seen, Mass/Thrombi: none seen RA: Normal Measurements: M-Mode Normal Aotic Root: <3.8 LA: <4.0 RV: <2.8 LV(ED): <5.7 LV(ES): Variable 2D Linear Normal Aotic Root: <4.0 Ao Indexed: <2.0 LA: <4.0 RV: <4.2 LV(ED): 6.2 cm <5.9 LV(ES): 5.2 cm <4.0 2D Vol. Normal Indexed Indexed Normal RA: 11-39 LA: 16-34 RV: <12.7 LV(ED): 150.0 ml 62-150 68.6 ml/M2 <75 LV(ES): 111.0 ml 21-61 50.8 ml/M2 <32 3D Vol. Indexed Normal LV(ED): <75 LV(ES): <32 LV EF: 26 % (Mod. Gooden's) (Normal: >=52%) LV Septum: 0.7 cm (Normal: <1.0 cm) Wall Motion Scoring (1=Normal 2=Hypo 3=Akinetic 4=Dyskin./Aneurysm 0=Not visualized) Parasternal Long [place]:MAS=2 BAS=2 MIL=2 LORNE=2 Parasternal Short [place]:MAS=2 MIS=2 DC=2 MIL=2 MAL=2 MA=2 Apical 4 Chambers:=2 MIS=2 BIS=2 BAL=2 MAL=2 AL=2 AC=2 Apical 2 Chambers:AI=2 DC=2 BI=2 BA=2 MA=2 AA=2 AC=2 LV Global Longitudinal Strain: RV Global Longitudinal Strain: LV Function: Severe Global reductionin LV Ejection Fraction (EF<30%); EF via modified Gooden's. (NOTE: If patient has irreversible LV Cardiac Dysfunction with EF<30%, they are at risk for Sudden Cardiac .) RV Function: Normal Septal Motion: paradoxic Pericardial Effusion: none seen Atrial Septum: Normal DOPPLER/COLOR FLOW DOPPLER RESULTS: DiastolicFunction: indeterminate Tricuspid Valve: mild TV regurgitation Pulmonic Valve: Mild MD AV Regurgitation: Mid AR AV Stenosis: AV Area: cm2 AV Pressure Gradient (mmHg): Mean: 0, Peak:0 MV Regurgitation: Mod MR MV Stenosis: MV Area: cm2 MV Pressure Gradient (mmHg): Mean: 0 MV ERO: cm Regurg. Vol.: ml/b eat Regurg. Frac.: % PA Pressure: 30-35 mmHg DOPPLER/COLOR FOLOW DOPPLER COMMENTS: Mid AR, Mod MR, mild TV regurgitation, Mild MD. Diastolic function: indeterminate CONTRAST: 0.8 ml Optison Administered, (2.2 ml wasted). ------ SUMMARY: Technically difficult study. Midly enlagred LV size and decreased systolic function with LVEF 26%. Paradoxical septum wall motion abnormality Likely normal RV fucntion. LA is moderately dilated. Mod MR. Trace pericardial effusion. No previous study for the comparison. Confirmed on 08/03/2024 - 16:04:01 by Eric Roebrts MD By signing this report, the attending hospitality director certifies that he or she has personally supervised and interpreted the echocardiogram and has reviewed and or edited and agrees with the written comments contained within the report. ASSESSMENT & PLAN Principal Problem: Acute cholecystitis Active Problems: Coronary artery disease due to calcified coronary lesion Complete heart block (CMS/HCC) (HCC) DM2 (diabetes mellitus, type 2) ([facility]) # RUQ ultrasound for further evaluation as CBC normal ABX Cardiology consult in lieu of elevated troponins and unsure of operative risk due to recent CABG Will follow Care plan discussed with the patient. Total time reviewing above and examining the patient 45 mintues Momo Epstein MD 09/02/2024 10:22 AM * Sloan Yanez MD - 09/02/2024 8:17 AM CDTAssociated Order(s): IP CONSULT TO CARDIOLOGY Images from the original note were not included. [facility] [address] [place] [address], [address], [address] [facility] [address] [place] [id number] Cardiology Electrophysiology MD Matthew Salter,, MD Richard Hammer, MD Iftikhar Chiang, MD Nba Tariq, MD Jamey Chaves, MD Preston Daley, MD Regino Rivera, MD Madai Porras, ACID PATROLLER Sylvester Cotton, MD Soheila Garza, ACID PATROLLER Oscar Amaya, MD Natalie Dave, PHP WORDPRESS DEVELOPER Sloan Yanez, MD Kandace Edwards, PHP WORDPRESS DEVELOPER Sherron Alexandra, PHP WORDPRESS DEVELOPER Isaura Reveles, PHP WORDPRESS DEVELOPER Richard Ken, PA Cardiology Consultation Note Patient Name: Abiel Fink Date of : 1950 Primary Physician: Juan Retana MD Requesting Physician: @REQUEST@ Admission Date: 09/01/2024 Length of Stay: 1 Chief Complaint No chief complaint on file. HPI Abiel Fink is a 74 y.o. male seen in consultation for preoperative cardiac risk assessment,medication optimization in the setting of recent CABG Patient presented to [facility] and diagnosed with acute cholecystitis recently Had very recent CABG x3 about 3 weeks ago on 07/24 along with permanent pacemaker placement during that admission Recently underwent CABG x3 on 07/24/2024,BURGESS to LAD, left radial to OM, SVG to PDA at [facility] alongwith [employer] OBSTETRICIAN AND GYNAECOLOGIST D, due to complete heart block with slow junctional escape rhythm. Comorbidities include diabetes, type 2, hypertension, JACQUELINE, pulmonary hypertension, hepatic steatosis, obesity and history of pituitary adenoma Based on discharge summary and op note patient post operative course was complicated by RV dysfunction and increased pulmonary artery pressures. Requiring dobutamine, lead 3, and epinephrine improvedwith significant diuresis and after a prolonged postoperative course was able to be weaned off hemodynamic support. However he did have persistent AV block and electrophysiology recommended placementof a OBSTETRICIAN AND GYNAECOLOGIST D. Reviewed postoperative echo persistently severe global dysfunction with an EF that was estimated ataround 26%, probably normal or near normal RV function, dilated left atrium with moderate residual mitral regurgitation, trace pericardial effusion and and mildly elevated pulmonary pressures of around 35 mmHg. Reviewed labs from [facility], minimally elevated and flat troponin I assay 0.08, 0.05 EKG biventricular paced rhythm reviewed CT imaging results consistent with acute cholecystitis findings along with splenomegaly Current labs: Creatinine 0.7, mildly elevated bilirubin normal AST ALT, elevated alk-phos Hemoglobin 7.9, which is not too far off from postsurgical baseline due to postoperative anemia Patient resting in bed only complaint is abdominal distension and right upper quadrant pain Past Medical History Past Medical History: Diagnosis Date Asthma Diabetes mellitus (HCC) GERD (gastroesophageal reflux disease) HH (hiatus hernia) Hypertension Sleep apnea pt uses CPAP machine nightly Past Surgical History Past Surgical History: Procedure Laterality Date KIDNEY SURGERY 1960 MULTIPLE TOOTH EXTRACTIONS TOTAL KNEE ARTHROPLASTY Left 2017 TOTAL KNEE ARTHROPLASTY Right 2019 Medications Medications Prior to Admission Medication Sig Dispense Refill Last Dose albuterol HFA (PROVENTIL HFA,VENTOLIN HFA,PROAIR HFA) 90 mcg/actuation inhaler Inhale 2 puffs every6 (six) hours as needed for wheezing ammonium lactate (AMLACTIN) 12 % cream Apply 1 Application topically as needed for dry skin aspirin 81 mg enteric coated tablet Take 1 tablet (81 mg total) by mouth daily atorvastatin (LIPITOR) 80 mg tablet Take 1 tablet (80 mg total) by mouth daily bumetanide (BUMEX) 1 mg tablet Take 0.5 tablets (0.5 mg total) by mouth carboxymethylcell-glycerin,PF, 0.5-0.9 % drops Administer 1 drop into affected eye(s) as needed (Dry eyes) carvediloL (COREG) 3.125 mg tablet Take 1 tablet (3.125 mg total) by mouth 2 (two) times a day withmeals clopidogreL (PLAVIX) 75 mg tablet Take 1 tablet (75 mg total) by mouth daily DULoxetine DR (CYMBALTA) 60 mg capsule Take 1 capsule (60 mg total) by mouth every morning isosorbide mononitrate ER (IMDUR) 30 mg 24 hr tablet Take 0.5 tablets (15 mg total) by mouth daily magnesium oxide (MAG-OX) 400 mg (241.3 mg elemental magnesium) tablet Take 2 tablets (800 mg total)by mouth 2 (two) times a day MULTIVITAMIN ORAL Take 1 tablet by mouth every morning omeprazole (PriLOSEC) 20 mg capsule Take 1 capsule (20 mg total) by mouth every morning pregabalin (LYRICA) 100 mg capsule Take 1 capsule (100 mg total) by mouth 2 (two) times a day Allergies Allergies Allergen Reactions Tramadol Itching Family History Family History Problem Relation Age of Onset Cardiomyopathy Mother Anesthesia problems Neg Hx Malig Hypertension Neg Hx Malig Hyperthermia Neg Hx Pseudochol deficiency Neg Hx Social History Social History Tobacco Use Smoking status: Former Current packs/day: 0.00 Average packs/day: 1.5 packs/day for 19.6 years (29.4 ttl pk-yrs) Types: Cigarettes Start date: 1960 Quit date: 06/11/1980 Years since quittin.2 Passive exposure: Past Smokeless tobacco: Never Substance and Sexual Activity Drug use: Not Currently Sexual activity: Defer Alcohol Use: Not At Risk (07/24/2024) AUDIT-C Frequency of Alcohol Consumption: Monthly or less Average Number of Drinks: 1 or 2 Frequency of Binge Drinking: Never ROS General: No fever, chills, malaise or fatigue Eyes: No alterations in visual acuity ENT: No alterations in auditory acuity, no sore throat Pulmonary: No dyspnea, cough or hemoptysis Cardiac: No chest pain, orthopnea, PND or palpitations GI: Significant right upper quadrant pain abdominal distention Musculoskeletal: No myalgias or arthralgias Skin: no rashes Neuro: No headaches, parathesias or focal neurological complaints Endocrine: No cold or heat intolerance Heme: no excessive bleeding or bruising Objective BP 121/75 (BP Location: Left arm, Patient Position: HOB 30 degrees) Pulse 89 Temp 36.9 ??C (98.5 ??F) (Oral) Resp 20 SpO2 98% Vitals: 09/01/24 2006 09/02/24 0006 09/02/24 0448 09/02/24 0810 BP: 146/66 144/65 115/75 121/75 BP Location: Left arm Patient Position: HOB 30 degrees Pulse: 94 90 88 89 Resp: 18 18 18 20 Temp: 36.9 ??C (98.4 ??F) 37.1 ??C (98.7 ??F) 36.7 ??C (98.1 ??F) 36.9 ??C (98.5 ??F) TempSrc: Oral SpO2: 96% 94% 95% 98% Intake/Output Summary (Last 24 hours) at 09/02/2024 0817 Last data filed at 09/02/2024 0145 Gross per 24 hour Intake -- Output 200 ml Net -200 ml General: No apparent distress. Eyes: Sclerae anicteric. Neck: JVP is normal. Chest: No deformity. Respiratory: Clear to auscultation bilaterally with good air movement. Cardiac: Regular rate and rhythm. No murmurs, gallops, rubs. Vascular: 2+ pulses throughout. Abdomen: Soft, nontender, nondistended. Extremities: No lower extremity edema. Musculoskeletal: Grossly normal strength throughout. Neurologic: Nonfocal. No dysarthria. Skin: No rashes Psychiatric: Appropriate affect and interaction. Diagnostics Recent Results (from the past 24 hour(s)) Comprehensive metabolic panel Collection Time: 09/01/24 9:13 PM Result Value Ref Range Sodium 138 135 - 145 mmol/L Potassium, pl 3.5 3.3 - 4.9 mmol/L Chloride 105 97 - 110 mmol/L CO2 22 22 - 32 mmol/L Anion gap 11 2 - 15 mmol/L BUN 14 6 - 25 mg/dL Creatinine 0.76 (L) 0.80 - 1.30 mg/dL Glucose 110 70 - 199 mg/dL Calcium 8.1 (L) 8.5 - 10.3 mg/dL Bilirubin, total 0.8 0.1 - 1.2 mg/dL Protein, pl 6.6 6.5 - 8.5 g/dL Albumin 3.1 (L) 3.5 - 5.0 g/dL Alk phos 148 (H) 40 - 130 Units/L ALT 26 7 - 55 Units/L AST 40 10 - 50 Units/L Bilirubin, direct Collection Time: 09/01/24 9:13 PM Result Value Ref Range Bilirubin, direct 0.5 (H) 0.1 - 0.3 mg/dL Phosphorus Collection Time: 09/01/24 9:13 PM Result Value Ref Range Phosphorus, pl 2.0 (L) 2.3 - 4.5 mg/dL eGFR Collection Time: 09/01/24 9:13 PM Result Value Ref Range eGFR >90 >=60 mL/min/1.73 m2 CBC with auto differential Collection Time: 09/02/24 6:11 AM Result Value Ref Range WBC 5.8 3.8 - 9.9 K/cumm Hgb 7.9 (L) 13.0 - 17.5 g/dL Hct 27.3 (L) 38.9 - 50.3 % Plt 186 150 - 400 K/cumm MPV 9.8 9.1 - 12.3 fL RBC 3.35 (L) 4.30 - 5.80 M/cumm MCV 81.5 81.3 - 96.4 fL MCH 23.6 (L) 27.1 - 33.3 pg MCHC 28.9 (L) 32.3 - 35.7 g/dL RDW CV 16.8 (H) 11.1 - 14.9 % RDW SD 49.3 (H) 35.7 - 48.1 fL NRBC abs 0.00 0.00 - 0.01 K/cumm Comprehensive metabolic panel Collection Time: 09/02/24 6:11 AM Result Value Ref Range Sodium 140 135 - 145 mmol/L Potassium, pl 3.5 3.3 - 4.9 mmol/L Chloride 106 97 - 110 mmol/L CO2 21 (L) 22 - 32 mmol/L Anion gap 13 2 - 15 mmol/L BUN 14 6 - 25 mg/dL Creatinine 0.74 (L) 0.80 - 1.30 mg/dL Glucose 100 70 - 199 mg/dL Calcium 7.7 (L) 8.5 - 10.3 mg/dL Bilirubin, total 0.7 0.1 - 1.2 mg/dL Protein, pl 6.1 (L) 6.5 - 8.5 g/dL Albumin 2.7 (L) 3.5 - 5.0 g/dL Alk phos 146 (H) 40 - 130 Units/L ALT 23 7 - 55 Units/L AST 38 10 - 50 Units/L Bilirubin, direct Collection Time: 09/02/24 6:11 AM Result Value Ref Range Bilirubin, direct 0.4 (H) 0.1 - 0.3 mg/dL Phosphorus Collection Time: 09/02/24 6:11 AM Result Value Ref Range Phosphorus, pl 2.3 2.3 - 4.5 mg/dL Differential, auto Collection Time: 09/02/24 6:11 AM Result Value Ref Range Neutrophil abs 4.1 1.5 - 6.5 K/cumm Imm gran abs 0.1 0.0 - 0.1 K/cumm Lymphocyte abs 0.9 0.8 - 3.3 K/cumm Monocyte abs 0.5 0.2 - 0.8 K/cumm Eosinophil abs 0.3 0.0 - 0.5 K/cumm Basophil abs 0.1 0.0 - 0.1 K/cumm Neutrophil pct 70.0 % Imm gran pct 0.9 % Lymphocyte pct 15.2 % Monocyte pct 8.3 % Eosinophil pct 4.7 % Basophil pct 0.9 % eGFR Collection Time: 09/02/24 6:11 AM Result Value Ref Range eGFR >90 >=60 mL/min/1.73 m2 No results found. No results found for this or any previous visit. Problem List # acute cholecystitis - Diagnosed with acute cholecystitis I gave - evaluation here pending General surgery evaluation - elevated risk given severe ischemic cardiomyopathy EF 26% and recent CABG the both of these appear well managed at this time - Patient is at elevated but not prohibitive risk for these procedures, and is okay from cardiac perspective to proceed with percutaneous drain or if deemed necessary cholecystectomy - aspirin and Plavix are currently on hold - patient currently receiving therapeutic Lovenox at this time which can be held at the discretion of the surgeon prior to those procedures # recent cardiovascular surgery # CABG x3 July 2024 [facility] - CABG x3 on 07/24/2024,BURGESS to LAD, left radial to OM, SVG to PDA at [facility] - no acute signs of ACS - No chest - elevated and flat troponin - unremarkable EKG with biventricular paced rhythm - sternal wound looks clean dry and intact - Based on history was progressing as expected, and was discharged to home from subacute rehab and tolerating activity well until abdominal pain started - planning on attending cardiac rehab at [facility], via the [facility] - no further cardiac workup indicated at this time unless patient develops chest pain in which casewe will repeat EKG and cardiac enzymes - aspirin and Plavix currently on hold given possible need for abdominal procedures # ischemic cardiomyopathy - EF 26% last month after surgery At [facility] - Moderate functional mitral regurgitation - appears well compensated at this time with no signs of volume overload - continue carvedilol 3.125 b.i.d. and isosorbide mononitrate 15 mg daily which was the only GDMT at discharge - will not attempt aggressive GDMT titration during acute cystitis episode # Complete heart block # OBSTETRICIAN AND GYNAECOLOGIST D - [employer] OBSTETRICIAN AND GYNAECOLOGIST D, due to complete heart block with slow junctional escape rhythm. - Reviewed EKG, normal biventricular paced rhythm Assessment/Plan No signs of ACS, okay to hold aspirin and Plavix given need for urgent surgery, would resume as soon as possible thereafter Okay to proceed with surgery or procedure without any other cardiac testing Repeat EKG and enzymes the patient develops chest pain Continue plan for outpatient cardiac rehab once discharge Care plan discussed with the patient and hospital medicine service Sloan Yanez MD 09/02/2024 8:18 AM This note was dictated in part using [employer] voice recognition software. Despite careful review of this note, variances in spelling and vocabulary are possible and unintentional. documented in this encounter Miscellaneous Notes * Plan of Care - Dye, Cathi N., RN - 09/07/2024 3:05 PM CDT Goals: Clinical Goals for the Shift: Remove CINTIA drain, go home Summary: 0700: BSSR received from Jane. Robert washburn, RN introduced self to pt. Call light in reach. 0830: Meds given as ordered, assessment per flowsheet. Pain treated per JAN. Pt up in chair awaiting breakfast. Dressing to CINTIA drain site saturated. New dressing applied. 1505: Pt stable for discharge per providers. IV removed. Instructions reviewed with pt, all questions answered. Medications delivered to pt from pharmacy. Pt discharged to home via ambulance. * Plan of Care - Rebecca Reeves RN - 09/07/2024 11:29 AM CDT 09/07/24 1128 Discharge Summary Discharge Disposition Private residence Recommended Discharge Level of Care Private residence Actual Discharge Level of Care Private residence Does Actual Level of Care Match Care Team Recommendation? Yes Post Acute Care Plan Home Care Services Yes Type of Home Care Services Home therapies Home Care Services Name and Phone Number [facility] to set up with HH Discharge Additional Assistance Does the patient need discharge transport arranged? Yes Type of Transportation Ambulance/EMS Has discharge transport been arranged? Yes Details of Transportation AL set up D/C Transport Anticipated Date 09/07/24 D/C Transport Anticipated Time 1400 * Plan of Care - Marleni Burgess RN - 09/07/2024 5:53 AM CDT Problem: Discharge Planning Goal: Understanding discharge needs will improve Outcome: Progressing Problem: Lack of Knowledge Goal: Ability to develop a pain control plan will improve Outcome: Progressing Problem: Medication Goal: Satisfaction with pain management medication regimen will improve Outcome: Progressing Problem: Sensory Goal: Ability to identify factors that increase pain levels will improve while working to decrease the patient's pain levels Outcome: Progressing Problem: Coping Goal: Ability to cope will improve Outcome: Progressing Problem: Health Behavior Goal: Identification of resources available to assist in meeting health care needs will improve Outcome: Progressing Problem: Lack of Knowledge Goal: Ability to describe self care measures that may prevent or decrease complications related to Type 2 Diabetes will improve Outcome: Progressing Problem: Skin/Tissue Integrity Goal: Skin integrity remains intact Outcome: Progressing Problem: Musculoskeletal Goal: Return mobility to safest level of function Outcome: Progressing Goal: Return ADL status to a safe level of function Outcome: Progressing Goal: Ability to perform activities at highest level will improve Outcome: Progressing Goal: Mobility, ROM and muscle strength will improve Outcome: Progressing Problem: Gastrointestinal Goal: Minimal or absence of nausea and vomiting Outcome: Progressing Problem: Hematologic Goal: Maintains hematologic stability Outcome: Progressing Problem: Fall Risk Goal: Ability to state ways to decrease the risk of falls will improve Outcome: Progressing Goal: Will remain free from falls Outcome: Progressing Goal: Will remain free from injury from falls Outcome: Progressing Problem: Skin Integrity Impairment Risk Goal: Mobility will improve Outcome: Progressing Goal: Understanding of ways to prevent future skin breakdown will improve Outcome: Progressing Goal: Nutritional status will improve Outcome: Progressing Goal: Risk for impaired skin integrity will decrease Outcome: Progressing Problem: Neurosensory Goal: Achieves stable or improved neurological status Outcome: Progressing Goal: Absence of seizures Outcome: Progressing Goal: Remains free of injury related to seizures activity Outcome: Progressing Goal: Achieves maximal functionality and self care Outcome: Progressing Goal: Ability to maintain intracranial pressure will improve Outcome: Progressing Problem: Respiratory Goal: Achieves optimal ventilation and oxygenation Outcome: Progressing Goal: Ability to maintain a clear airway will improve Outcome: Progressing Problem: Cardiovascular Goal: Maintains optimal cardiac output and hemodynamic stability Outcome: Progressing Goal: Absence of cardiac dysrhythmias or at baseline Outcome: Progressing Goal: Cardiovascular status will improve Outcome: Progressing Goals: Clinical Goals for the Shift: Monitor VS, labs, tele, safety/comfort, IV abx, pain management Summary: Nursing to Nursing Communication RAYMOND: Expected Discharge Date Expected Discharge Date Sep 07, 2024 DC Transport barriers: No PT/OT orders: Yes CM anticipated level of care: Anticipated discharge level of care: Private residence Mobility Barriers (i.e patient refusal, surgical restrictions, safety concerns, etc.): BLE swelling Lines/Drains: Peripheral IV 09/05/24 22 G Posterior;Right Hand (Active) Closed/Suction/Open Drain 1 Lateral;Right Abdomen Bulb 19 Fr. (Active) External Urinary Device (Active) Wound 07/24/24 Incision Chest Anterior;Medial (Active) Wound 07/24/24 Incision Arm Left (Active) Wound 07/24/24 Incision Leg Right (Active) Wound 07/24/[address] and EPW (Active) Wound 09/04/24 Incision Abdomen (Active) Surgical Site 06/28/20 Left Eye (Active) Surgical Site 06/28/20 Right Eye (Active) Last BM: Last BM Date: 09/06/24 Medical Barriers: Other: none Incomplete Orders/Imaging/Consults: none Significant events over the last shift: Pt Rt abdominal incision still leaking, noted serosanguinous fluid, dressing saturated, cleansed and dressing done twice. Pt c/o pain on Rt incision site, painscale 04/17, prn meds given as ordered. Pt needs met and attended. Kept self rested. * Plan of Care - Veronica Moreno RN - 09/06/2024 3:15 PM CDT Problem: Musculoskeletal Goal: Return mobility to safest level of function Outcome: Progressing Flowsheets (Taken 09/06/2024 1512) Return mobility to safest level of function: Assess patient stability and activity tolerance for standing, transferring and ambulating with or without assistive devices Assist with transfers and ambulation using safe patient handling equipment as needed Ensure adequate protection for wounds/incisions during mobilization Goal: Return ADL status to a safe level of function Outcome: Progressing Flowsheets (Taken 09/06/2024 1512) Return activities of daily living status to a safe level of function: Assess patient's activities of daily living deficits and provide assistive devices as needed Obtain PT/OT consults as needed Goals: Clinical Goals for the Shift: Monitor VS, labs, tele, safety/comfort, IV abx, pain management Summary: CINTIA was draining >100ml with dressing saturated with serosanguineous x 2. Administered PRN pain medication prior to ambulation. Sat at the chair most of the day. * Plan of Care - Marleni Burgess RN - 09/06/2024 5:30 AM CDT Goals: Clinical Goals for the Shift: Monitor VS/tele/labs. Provide comfort and safety. Summary: Nursing to Nursing Communication RAYMOND: Expected Discharge Date Expected Discharge Date Sep 07, 2024 DC Transport barriers: No PT/OT orders: Yes CM anticipated level of care: Anticipated discharge level of care: Private residence Mobility Barriers (i.e patient refusal, surgical restrictions, safety concerns, etc.): BLE swelling Lines/Drains: Peripheral IV 09/05/24 22 G Posterior;Right Hand (Active) Closed/Suction/Open Drain 1 Lateral;Right Abdomen Bulb 19 Fr. (Active) External Urinary Device (Active) Wound 07/24/24 Incision Chest Anterior;Medial (Active) Wound 07/24/24 Incision Arm Left (Active) Wound 07/24/24 Incision Leg Right (Active) Wound 07/24/[address] and EPW (Active) Wound 09/04/24 Incision Abdomen (Active) Surgical Site 06/28/20 Left Eye (Active) Surgical Site 06/28/20 Right Eye (Active) Last BM: Last BM Date: 09/04/24 Medical Barriers: IV medications Incomplete Orders/Imaging/Consults: none Significant events over the last shift: PT s/p ERCP, CITNIA drain inplaced, kept on negative pressure at times for suction, noted leaking on site, dressing changed 2x. Pt denies any pain/discomfort, SOB.Pt needs met and attended. Kept self-rested. * Plan of Care - Veronica Moreno RN - 09/05/2024 2:53 PM CDT Problem: Medication Goal: Satisfaction with pain management medication regimen will improve Outcome: Progressing Flowsheets (Taken 09/04/20241803) Satisfaction with pain management medication regimen will improve: Assess satisfaction with pain management regimen Evaluate medication effects Manage analgesics Provide administration of medications prior to painful activities Goals: Clinical Goals for the Shift: Monitor VS, labs, tele, safety/comfort, CINTIA drain, pain management Summary: Not on tele. On RA, discontinued LR. NPO for ERCP today; given water with sips of meds. JPdrain site dressing is saturated with drainage and leaking on the insertion site. Dressing changed and informed surgery MD. Given pain medications for R abdomen soreness on insertion site. Edema on scrotum and penile area noted; non-pitting. Tolerating clear liquids. * Initial Assessments - Rebecca Reeves RN - 09/05/2024 2:11 PM CDT CM Initial Assessment Interview Note Information Obtained From: Patient (09/05/241407) Admission Source: transfer from [facility], from home with son Impression: Acute Cholecystitis Plan Includes: General surgery consult, lap miladys, ERCP; patient plans to return home after DC Primary Source of Transportation: Does the patient need discharge transport arranged?: Yes (son doesn't drive- ?friend to crop picker) Has discharge transport been arranged?: No (09/05/241407) [place]: [place]: [place] Pharmacy: [facility] Pharm[facility] - Fax or Paper Script Only - send e-rx to [facility] [address] [place] [id number] [facility] [id number] [place] [facility] [address] [place] [id number] Primary Care Provider: Juan Retana MD Prior to Admission: Functional Status: Independent with ADLs Primary Caregiver: Self Support System: Children Home Care Services: No Outpatient Services: No Durable Medical Equipment: Cane (single prong), Walker (wheeled) Living Arrangements: Children (son) Type of Residence: Private residence Steps in home?: Yes, Outside of home, Yes, Inside home Number of steps inside: 10 steps Number of steps outside: 3 steps Medication management: Independent (09/05/241407) SDOH: Transportation: In the past 12 months, has lack of transportation kept you from medical appointments or from getting medications?: No In the past 12 months, has lack of transportation kept you from meetings, work, or from getting things needed for daily living?: No (09/05/241410) Financial Resource: How hard is it for you to pay for the very basics like food, housing, medical care, and heating?: Not very hard (09/05/241410) Housing: In the last 12 months, was there a time when you were not able to pay the mortgage or rent on time?: No In the past 12 months, how many times have you moved where you were living?: 0 At any time in the past 12 months, were you homeless or living in a [place] facility (including now)?: No (09/05/241410) Utilities: No, (09/05/241410) Social Connections: In a typical week, how many times do you talk on the phone with family, friends, or neighbors?: More than three times a week How often do you get together with friends or relatives?: Once a week How often do you attend alevism or oriental orthodox services?: Never Do you belong to any clubs or organizations such as alevism groups, unions, fraternal or athletic groups, or school groups?: No How often do you attend meetings of the clubs or organizations you belong to?: Never Are you , , , , never , or living with a partner?: (09/05/241410) Food Insecurity: Within the past 12 months, you worried that your food would run out before you got the money to buymore.: Never true Within the past 12 months, the food you bought just didn't last and you didn't have money to get more.: Never true (09/05/241410) Alcohol Use: PHQ Screening Potential discharge needs include: Home Health: None (09/05/241407) OP Services: Dialysis: Behavioral Health Services: Behavioral Health Services: No (09/05/241407) Anticipated Level of Care: Anticipated discharge level of care: Private residence Pt/Family agrees with Anticipated Level of Care: Yes (09/05/241407) Patient expects to be Discharged to: Private residence, (09/05/241407) Additional Information: CM to follow for DC needs Patient's Identified Problem/Goal Problem: Ensure acute medical needs are met and that patient has a safe discharge plan. Goal: Secure a discharge plan that patient/family are agreeable with and ensure patient has continuum of care. Case management will follow for discharge planning and send referrals as needed. Goals include: To assure continuity of care, To maximize coping skills, To assure patient is in a safe environment and To assure access to community resources. Plan includes: 1. Collaboration with Patient, Provider, Direct Care Nurse, Metal Washing Machine Operator, and other members of theHealth Care Team to assure needed interventions completed. 2. Return patient to optimal level of self-care post discharge. 3. Product Management Intern will follow for Discharge Planning - interventions as needed 4. Anticipated level of care at discharge 5. Planned Discharge Disposition Rebecca Reeves RN * Plan of Care - Suzie Fitch RN - 09/05/2024 4:45 AM CDT Goals: Clinical Goals for the Shift: That patient will not have any pain, no shortness of breath, monitor vs, tele, patient status. Summary: Nursing to Nursing Communication RAYMOND: Expected Discharge Date Expected Discharge Date Sep 05, 2024 DC Transport barriers: No PT/OT orders: Yes CM anticipated level of care: Mobility Barriers (i.e patient refusal, surgical restrictions, safety concerns, etc.): walker gait belt, not moving getting up after surgery on 09/04/2024 Lines/Drains: Peripheral IV 09/04/24 18 G Left Forearm (Active) Closed/Suction/Open Drain 1 Lateral;Right Abdomen Bulb 19 Fr. (Active) External Urinary Device (Active) Wound 07/24/24 Incision Chest Anterior;Medial (Active) Wound 07/24/24 Incision Arm Left (Active) Wound 07/24/24 Incision Leg Right (Active) Wound 07/24/[address] and EPW (Active) Wound 09/04/24 Incision Abdomen (Active) Surgical Site 06/28/20 Left Eye (Active) Surgical Site 06/28/20 Right Eye (Active) Last BM: Last BM Date: 09/04/24 Medical Barriers: IV medications Incomplete Orders/Imaging/Consults: ERCP ordered Significant events over the last shift: none Problem: Discharge Planning Goal: Understanding discharge needs will improve Outcome: Progressing Problem: Lack of Knowledge Goal: Ability to develop a pain control plan will improve Outcome: Progressing Problem: Medication Goal: Satisfaction with pain management medication regimen will improve Outcome: Progressing Problem: Sensory Goal: Ability to identify factors that increase pain levels will improve while working to decrease the patient's pain levels Outcome: Progressing Problem: Coping Goal: Ability to cope will improve Outcome: Progressing Problem: Health Behavior Goal: Identification of resources available to assist in meeting health care needs will improve Outcome: Progressing Problem: Lack of Knowledge Goal: Ability to describe self care measures that may prevent or decrease complications related to Type 2 Diabetes will improve Outcome: Progressing Problem: Skin/Tissue Integrity Goal: Skin integrity remains intact Outcome: Progressing * Plan of Care - Veronica Moreno RN - 09/04/2024 6:05 PM CDT Problem: Lack of Knowledge Goal: Ability to develop a pain control plan will improve Outcome: Progressing Flowsheets (Taken 09/04/2024 1804) Ability to develop a pain control plan will improve: Explain causes of pain and how long pain can be expected to last Teach information regarding pain management Problem: Medication Goal: Satisfaction with pain management medication regimen will improve Outcome: Progressing Flowsheets (Taken 09/04/2024 1804) Satisfaction with pain management medication regimen will improve: Assess satisfaction with pain management regimen Evaluate medication effects Manage analgesics Provide administration of medications prior to painful activities Goals: Clinical Goals for the Shift: Monitor VS, labs, safety/comfort, NPO for Lap miladys today, pain management Summary: Lap Miladys done today with 4 punctures on abdomen, 1 with the CINTIA drain serosanguinous. Dressing on CINTIA drain is saturated since recovery, reinforced with abd. PRN pain medication given for 8/10 pain post sx. Drowsy but awake and easily arousable. * Op Note - Ever Anton MD - 09/04/2024 1:40 PM CDT Images from the original note were not included. Operative Note SURGEON Ever Anton MD, FACS DEVELOPMENT ADVISOR Health Inspector Food: Katerine Medina RN Scrub: Keyana Chow RN RESIDENT ADVISOR: Park Villarreal RN PREOPERATIVE DIAGNOSIS Acute cholecystitis secondary to cholelithiasis POSTOPERATIVE DIAGNOSIS Acute gangrenous perforated cholecystitis OPERATION Laparoscopic subtotal fenestrated cholecystectomy Citation- Jayme et al, Journal [employer] 222 (1): 89-96. November 2015 ANESTHESIA General endotracheal anesthesia. SPECIMEN Gallbladder FINDINGS Acute gangrenous perforated cholecystitis, entire gallbladder was gangrenous, foul-smelling bile was aspirated, cultures were obtained. Cystic triangle was severely inflamed, edematous, no way to dissect to the cystic duct and cystic artery out because of the severe inflammation to the hepatic artery and bile duct. Therefore a subtotal cholecystectomy was carried out. EBL MINIMAL DISPOSITION To recovery room in satisfactory condition. HISTORY Mr. Fink was transferred here from an outside hospital 1 month following a CABG for acute cholecystitis secondary to cholelithiasis, obtained cardiac clearance. Comes to the OR for cholecystectomy OPERATION Risks and benefits were explained to the patient. Informed consent was signed. He was taken to the operating room and placed in supine position. Adequate general endotracheal anesthesia was established. The abdomen was prepped and draped in the usual fashion. Infraumbilical incision was made with ascalpel. The dissection was carried down through subcutaneous tissue and through the fascia using cautery. The peritoneum was entered sharply. A 12 mm blunt trocar was placed into the abdomen under direct visualization. Pneumoperitoneum was created up to 15 mmHg CO2 pressure. A 5 mm trocar was placed in the epigastrium, two other 5 mm trocars were placed in the right upper quadrant under direct vi sualization. The gallbladder had changes consistent with acute gangrenous perforated cholecystitis with bile over the liver as well as bile inferior to the gallbladder. There was a perforation inferiorly. Cultures of the bile were taken. It was foul smelling.. The gallbladder was reflected over theliver. Joaquin's pouch retracted laterally. No way to dissect out the triangle of Calot as there was so much inflammation and the gallbladder was adhered down to the pacheco hepatis. Therefore the gallbladder was opened anteriorly, there was full-thickness necrosis in the entire mucosa was necrotic.The anterior wall as well as most of the posterior wall superiorly were taken down and dissected tracy e, passed off the field as specimen. The gallbladder stump was about 1 cm in diameter. We never encountered any bile coming from the cystic duct orifice that was identified. This was grasped from inside the gallbladder stump, lifted into the operative field an endoloop was placed. The cystic arterywas identified within the wall the gallbladder was bleeding. This was cauterized. Hemostasis of thegallbladder fossa/posterior wall of the gallbladder was cauterized. Surgicel was placed in the operative field for hemostasis. Hemostasis was deemed adequate. There is no bile leak. There is no bleeding. All irrigation was suctioned and was clear. A 19. Round fluted drain was placed at the operative site and brought out the most right lateral trocar site. The upper abdominal trocars were removed under direct visualization. Hemostasis is adequate. The infraumbilical trocar was removed. Pneumoperitoneum allowed to escape. The infraumbilical fascia was closed using 0 PDS interrupted fashion. Allskin incisions were injected with local anesthetic, and closed using a 4-0 Monocryl running subcuticular closure. Dermabond applied. Patient tolerated the procedure well. The sponge, needle, and instrument counts were correct at the end of the case. He will be taken to the recovery room in satisfactory condition. Interventional gastroenterology was consulted for ERCP to be done tomorrow as high risk for a bile leak, biliary stent to be placed. I performed and scrubbed in for the entire procedure except the skin closure which I was immediately available. There was no surgical appliance fitter. Ever Anton MD, [facility] [employer] Department of Surgery ACCS, Division of General Surgery 09/04/2024 2:55 PM * Plan of Care - Suzie Fitch RN - 09/04/2024 3:04 AM CDT Goals: Clinical Goals for the Shift: That patient will not have any pain, no shortness of breath, no falls, monitor vs, patient status. Summary: Nursing to Nursing Communication RAYMOND: DC Transport barriers: No PT/OT orders: No CM anticipated level of care: Mobility Barriers (i.e patient refusal, surgical restrictions, safety concerns, etc.): gait belt walker Lines/Drains: Peripheral IV 09/04/24 20 G Posterior;Right Forearm (Active) External Urinary Device (Active) Wound 07/24/24 Incision Chest Anterior;Medial (Active) Wound 07/24/24 Incision Arm Left (Active) Wound 07/24/24 Incision Leg Right (Active) Wound 07/24/[address] and EPW (Active) Surgical Site 06/28/20 Left Eye (Active) Surgical Site 06/28/20 Right Eye (Active) Last BM: Last BM Date: 09/02/24 Medical Barriers: IV medications Incomplete Orders/Imaging/Consults: needs gall bladder surgery 09/04/2024 Significant events over the last shift: pre-op surgical bath completed * Plan of Care - Rosie Hollingsworth RN - 09/03/2024 6:16 PM CDT Problem: Lack of Knowledge Goal: Ability to develop a pain control plan will improve Outcome: Progressing Problem: Gastrointestinal Goal: Minimal or absence of nausea and vomiting Outcome: Progressing Goals: Clinical Goals for the Shift: meds Summary: npo after midnight for cholelcystectomy. [place] given this am for right abd pain. Cont on iv fluids/ iv antbx. * Consults, Subsequent - Momo Epstein MD - 09/03/2024 10:54 AM CDT General Surgery Consult Note 09/03/2024 Patient: Abiel Fink 74 y.o. male Date of : 1950 Primary Care Physician: Juan Retana MD Attending Provider: Deanna Bangura MD Referred by: Harmeet Alejandre NP Admission Date: 09/01/2024 Date of consult: 09/03/24 Length of Stay: 2 SUBJECTIVE HPI: Abiel Fink is a 74 y.o. male who presented to outside facility hospital with complaints of pain. Was seen in [facility] and was diagnosed with cholecystitis. Patient was recently admitted to the hospital and discharged on 08/11/2024 status post CABG x3 on 07/24 and permanent pacemaker regular implantation on 08/04. Surgeon from [facility] did not agree to do the surgery recommended transferring patient to [place] given the recent CT surgery. Outside facility workup was notable for mild metabolic acidosis with elevated LFTs and total bilirubin 1.4. Mild hypomagnesemia, leukocytosis WBC 11.5, baseline anemia, with hemoglobin 8.8 and hematocrit 30.0. INR 1.5 Troponins mildly elevated . Per outside record review patient initially was in hospital, noted to have elevated troponins. Was referred for admission for NSTEMI, however patient left AMA with oral Augmentin which he did not take. He returned next day with complaints of worsening of pain, fever, and shortness of breath. Repeat troponin showed interval increase troponin level to 0088.ew of Systems Seen by cardiology today and cleared for surgery although high risk due to recent CABG. OBJECTIVE Past Medical History: Diagnosis Date Asthma Diabetes mellitus (HCC) GERD (gastroesophageal reflux disease) HH (hiatus hernia) Hypertension Sleep apnea pt uses CPAP machine nightly Past Surgical History: Procedure Laterality Date KIDNEY SURGERY 1960 MULTIPLE TOOTH EXTRACTIONS TOTAL KNEE ARTHROPLASTY Left 2017 TOTAL KNEE ARTHROPLASTY Right 2019 Allergies as of 08/31/2024 - Reviewed 08/15/2024 Allergen Reaction Noted Tramadol Itching 06/11/2020 Family History Problem Relation Age of Onset Cardiomyopathy Mother Anesthesia problems Neg Hx Malig Hypertension Neg Hx Malig Hyperthermia Neg Hx Pseudochol deficiency Neg Hx Social History Tobacco Use Smoking status: Former Current packs/day: 0.00 Average packs/day: 1.5 packs/day for 19.6 years (29.4 ttl pk-yrs) Types: Cigarettes Start date: 1960 Quit date: 06/11/1980 Years since quittin.2 Passive exposure: Past Smokeless tobacco: Never Substance and Sexual Activity Drug use: Not Currently Sexual activity: Defer Alcohol Use: Not At Risk (07/24/2024) AUDIT-C Frequency of Alcohol Consumption: Monthly or less Average Number of Drinks: 1 or 2 Frequency of Binge Drinking: Never CURRENT MEDICATIONS Scheduled Medications Continuous Medications PRN Medications [Held by Provider] aspirin, 81 mg, oral, Daily atorvastatin, 80 mg, oral, Daily bumetanide, 0.5 mg, oral, Daily carvediloL, 3.125 mg, oral, BID with meals (bkfst, dinner) [Held by Provider] DULoxetine DR, 60 mg, oral, QAM heparin, 5,000 Units, subcutaneous, Q8H HILDA isosorbide mononitrate ER, 15 mg, oral, Daily pantoprazole DR, 40 mg, oral, Daily piperacillin-tazobactam, 3.375 g, intravenous, Q6H HILDA pregabalin, 100 mg, oral, BID sodium chloride 0.9%, 0.5-20 mL, intra-catheter, Q8H HILDA sodium chloride 0.9%, 0.5-20 mL, intra-catheter, Q8H HILDA Continuous Medications Medication Dose Last Rate Lactated Ringer's (LR) infusion 75 mL/hr 75 mL/hr (09/02/24 2211) sodium chloride 0.9% infusion 75 mL/hr 75 mL/hr (09/03/24 0825) acetaminophen albuterol HFA bisacodyl EC OR bisacodyL sodium chloride 0.9% sodium chloride 0.9% HYDROcodone-acetaminophen HYDROmorphone ondansetron ODT OR ondansetron polyethylene glycol sodium chloride 0.9% sodium chloride 0.9% VITAL SIGNS Vitals: 09/02/24 2055 09/03/24 0019 09/03/24 0415 09/03/24 0802 BP: 121/60 152/63 136/65 116/66 BP Location: Right arm Right arm Right arm Patient Position: Lying Lying HOB 30 degrees Pulse: 82 81 74 74 Resp: 20 18 18 18 Temp: 36.7 ??C (98 ??F) 36.8 ??C (98.3 ??F) 36.6 ??C (97.9 ??F) 37 ??C (98.6 ??F) TempSrc: Oral Axillary Axillary Oral SpO2: 98% 97% 96% 98% Weight: Height: PHYSICAL EXAM Constitutional: Alert. Cooperative. In no apparent distress. HEENT: Normocephalic. Atraumatic. Moist mucous membranes. Sclera are anicteric. Neck: Supple. Normal ROM. Cardiac: Heart is regular rate and rhythm. Chest: Normal respirations Abdomen: soft with mild RUQ pain large midline incision from ex-lap when 11 years old Neurologic: Spontaneously moves all extremities. No focal deficits. Psych: normal affect, mood, judgement Extremities are warm, without edema. DIAGNOSTICS Recent Labs Lab Units 09/03/24 0633 09/02/24 0611 WBC K/cumm 5.2 5.8 HEMOGLOBIN g/dL 8.2* 7.9* HEMATOCRIT % 28.6* 27.3* PLATELETS K/cumm 173 186 Recent Labs Lab Units 09/03/24 0633 09/02/24 0938 09/02/24 0609/01/24 2113 SODIUM mmol/L 139 -- 140 138 POTASSIUM PLASMA mmol/L 3.5 -- 3.5 3.5 MAGNESIUM mg/dL -- 1.9 -- -- PHOSPHORUS PLASMA mg/dL 2.8 2.5 2.3 2.0* CHLORIDE mmol/L 107 -- 106 105 CO2 mmol/L 21* -- 21* 22 ANIONGAP mmol/L 11 -- 13 11 BUN SERUM mg/dL 13 -- 14 14 CREATININE mg/dL 0.77* -- 0.74* 0.76* CALCIUM mg/dL 7.9* -- 7.7* 8.1* ALBUMIN g/dL 2.4* -- 2.7* 3.1* ALK PHOS Units/L 149* -- 146* 148* ALT Units/L 23 -- 23 26 AST Units/L 43 -- 38 40 BILIRUBIN TOTAL mg/dL 0.6 -- 0.7 0.8 Recent Labs Lab Units 09/03/24 0609/02/2461009/01/242112 GLUCOSE mg/dL 92 100 110 Lab Results Component Value Date INR 1.44 (H) 07/24/2024 ECG 12 lead Result Date: 09/02/2024 Narrative: Vent Rate: 92 bpm RR Interval: 650 msec MD Interval: 154 msec QRS Duration: 151 msec QT Interval: 406 msec QTC Interval: 456 msec P-R-T [place]: 37 - 267 - 106 degrees IMPRESSION: ELECTRONIC VENTRICULAR PACEMAKER ABNORMAL RHYTHM ECG Electronically Signed By: DEVICE CHECK - IN OFFICE Result Date: 08/15/2024 Narrative: Interpretation Summary: Battery and Leads (BL) Normal parameters noted on battery and lead(s) --- Estimated battery longevity 8.3 years. Presenting Rhythm (MD) Atrial Sensing-BiVentricularPacing (-BiVP) --- /BiVP 85 bpm. Underlying /VS, COMPLETE HEART BLOCK 40 bpm. Arrhythmic events (AE) No new arrhythmic events in monitoring period Transmission Information (TI) Device Summary Report Implantable Cardiac Device Result Date: 08/05/2024 Narrative: Patient Name: Abiel Fink Date of : 1950 Primary Physician: @PCP@ Procedure Date: @ADMITDT@ Name of procedure: 1. Placement of a Biventricular Pacing ICD 2. Selective Coronary Sinus Venography 3. Subclavian venography History: 1) CAD -Symptoms of GARCÍA -s/p CABG BURGESS-LAD, left radial-OM, SVG-PDA) 07/24/2024 2) AV block -History of second degree AV block, CHB post op -Given CHB and LVEF 26%, presented for OBSTETRICIAN AND GYNAECOLOGIST-D 08/04/2024. 3) ICM -LVEF 40-50% pre op, with RV dysfunction (EMILE) -TTE 08/03/2024 with LVEF of 26% and likely normal RV 4) Mitralregurgitation -Mod MR pre-op -TTE 08/03/2024 mod MR 5) HTN 6) DM Methods: After informed consent wasobtained, the patient was brought to the EP laboratory in a postabsorptive, nonsedated state. Peripheral IV access was established. Prophylactic antibiotics were administered prior to incision. Continuous ECG, blood pressure, and pulse oximetry were initiated. Cardioversion patch electrodes were placed on the patient's chest and back. A grounding patch was applied to the skin. Sedation was administered by anesthesia. In order to define the extrathoracic portion of the subclavian vein and exclude significant venous obstruction or anomalous anatomy, subclavian venography was performed prior to the procedure. Using the patient's left upper ext peripheral IV, contrast was injected and images were recorded. The left subclavian vein and SVC were found to be widely patent. The left chest was prep ared and draped in a sterile fashion. Local anesthesia was injected in the subcutaneous tissue in the infraclavicular area. An incision was made medial to the deltopectoral groove and parallel to theclavicle. The subcutaneous tissue was dissected the level of the prepectoral fascia. A subcutaneouspocket was created. Under fluoroscopic guidance and with the assistance of the images from the venogram, three separate venipunctures were made using micropuncture and modified Seldinger technique. These was performed in the extrathoracic portion of the subclavian vein. Guidewires were passed. Peel-away sheaths were placed, and were used to advance the leads into the circulation. Using fluoroscopic guidance, the leads were positioned. The RV lead was advanced to the RV outflow tract. Ventricular ectopy was recorded. Images were taken in SHELL and MACEDONIAN views to ensure appropriate lead placement. The lead tip was subsequently positioned in the RV apex. Adequate sensing and pacing parameters werefound, and no diaphragmatic stimulation was seen with high-output pacing. Next, the LV pacing lead was placed. The coronary sinus was intubated with an extended hook outer CS sheath and hydrophilic wire. Selective coronary sinus venography was performed, demonstrating the presence of a suitable postero lateral branch (lateral and anterolateral were very small). A quadripolar lead was positioned in this branch over a whisper EDS wire. Adequate sensing and pacing parameters were found, and no diaphragmatic stimulation was seen with high-output pacing. Next, the right atrial lead was positioned in the right atrial appendage. Adequate sensing and pacing parameters were found, and no diaphragmatic stimulation was seen with high-output pacing. All sheaths were split, and the leads were secured to the fascia with Ethibond ties. The pocket was flushed with antibiotic solution and hemostasis wasassured. Floseal was applied. The generator was connected to the leads and placed inside the pocket. Antibiotic envelope was used.The wound was closed with 3 running layers of absorbable suture, and steristrips were applied. Defibrillator function testing was deferred. Following the procedure, the p atient was taken to the recovery area in stable condition. A chest x-ray was obtained in the holding area. Lead parameters and device programming: - RA Lead (#[id number] S/N [id number]): Sensing 2.5 mV, Pacing threshold 0.75 V at 0.4 ms, Imp 608 Ohm - RV Lead (#[id number]): Sensing 6.6 mV, Pacing threshold 0.75 V at 0.4 ms Imp 456 Ohm - LV Lead (#[id number] S/N [id number]): Sensing NA mV, Pacing threshold 1.0 V at 0.4 ms, Imp 418 Ohm - Device: OBSTETRICIAN AND GYNAECOLOGIST-D ([employer]olt HF Quad #[id number] S/N [id number]), programmed DDD 60-130 BPM - Zones: VF> 200BPM ATP during charge then shocks VT monitor >171 BPM Conclusions: 1. Successful placement of a biventricular pacing defibrillator 2. Coronary sinus venography 3. Subclavian venography Recommendations: 1. Admit to same hospital bed 2. Portable chest x-ray in holding area. PA/lateral chest x-ray in the morning. 3. IV antibiotics while the patient is admitted, oral antibiotics for one week on discharge. 4. Device interrogation in the morning. 5. Follow-up will be arranged in the [facility] 7-10 days post-discharge Lucy Meyer MD Clinical Cardiac Pop Singer X-ray chest 2 views Result Date: 08/05/2024 Narrative: EXAMINATION: 2 view chest radiograph Impression: Comparison is made to prior chest radiograph dated 08/04/2024 Sternotomy plate are unchanged. 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 Small left pleural effusion is similar to prior study. No pneumothorax. Stable heart size. Electronically signed by: Razia Schroeder M.D. X-ray chest 1 view (Portable) Result Date: 08/04/2024 Narrative: EXAMINATION: 1 view chest radiograph Impression: The current study is compared with the prior radiograph dated 08/01/2024. Interval placement of left chest tube subclavian approach pacer/defibrillator with leads in the right atrium, right ventricle, and cardiac vein. Interval removal of right internal jugular venous catheter. Sternotomy plates and screws with unchanged alignment. Epicardial pacing wires present. Low lung volumes bilaterally. Small left pleural effusion with some associated atelectasis. No pneumothorax. Stable cardiomediastinal silhouette. Dictated by: Jerrod Ortiz MD The radiology attending physician has personally reviewed this study, and had reviewed and/or edited this written report and agrees with it.Electronically signed by: Serafin Terrell M.D. Transthoracic Echo (TTE) Limited/Followup Result Date: 08/03/2024 Narrative: Patient name: Abiel Fink Date of test: 08/03/2024 Type of test: [facility] #:0 Date of : 1950 (M) Oiler Helper: Jojo Chapa RDCS Referring Physician: CALEB ELIZABETH MD Contrast Agent: 0.8 ml Optison Administered, (2.2 ml wasted). Contrast Administered by: IN FLIGHT REFUELING MANAGER Supervised/Interpreted by: Eric Roberts MD Diagnosis: chf Location: [facility] Reason for test: Evaluate LV prior to PPM placement MV Structure: Normal, MV Motion: Normal, Mitral Annulus: calcified AV Structure: tricuspid and is Normal, AV Motion: Normal Aotic root: Normal, TM: Normal, PV: Normal Valvular Vege tations: none seen, Mass/Thrombi: none seen RA: Normal Measurements: M-Mode Normal Aotic Root: <3.8 LA: <4.0 RV: <2.8LV(ED): <5.7 LV(ES): Variable 2D Linear Normal Aotic Root: <4.0 Ao Indexed: <2.0 LA: <4.0 RV: <4.2 LV(ED): 6.2 cm <5.9 LV(ES): 5.2 cm <4.0 2D Vol. Normal Indexed Indexed NormalRA: 11-39 LA: 16-34 RV: <12.7 LV(ED): 150.0 ml 62-150 68.6 ml/M2 <75 LV(ES): 111.0 ml 21-61 50.8 ml/M2 <32 3D Vol. Indexed Normal LV(ED): <75 LV(ES): <32 LV EF: 26 % (Mod. Gooden's) (Normal: >=52%) LV Septum: 0.7 cm (Normal: <1.0 cm) Wall Motion Scoring (1=Normal 2=Hypo 3=Akinetic 4=Dyskin./Aneurysm 0=Not visualized) Parasternal Long [place]:MAS=2 BAS=2 MIL=2 LORNE=2 Parasternal Short [place]:MAS=2 MIS=2 DC=2 MIL=2 MAL=2 MA=2 Apical 4 Chambers:=2 MIS=2 BIS=2 BAL=2 MAL=2 AL=2 AC=2 Apical 2 Chambers:AI=2 DC=2 BI=2 BA=2 MA=2 AA=2 AC=2 LV Global Longitudinal Strain: RV Global Longitudinal Strain: LV Function: Severe Global reductionin LV Ejection Fraction (EF<30%); EF via modified Gooden's. (NOTE: If patient has irreversible LV Cardiac Dysfunction with EF<30%, they are at risk for Sudden Cardiac .) RV Function: Normal Septal Motion: paradoxic Pericardial Effusion: none seen Atrial Septum: Normal DOPPLER/COLOR FLOW DOPPLER RESULTS: DiastolicFunction: indeterminate Tricuspid Valve: mild TV regurgitation Pulmonic Valve: Mild MD AV Regurgitation: Mid AR AV Stenosis: AV Area: cm2 AV Pressure Gradient (mmHg): Mean: 0, Peak:0 MV Regurgitation: Mod MR MV Stenosis: MV Area: cm2 MV Pressure Gradient (mmHg): Mean: 0 MV ERO: cm Regurg. Vol.: ml/b eat Regurg. Frac.: % PA Pressure: 30-35 mmHg DOPPLER/COLOR FOLOW DOPPLER COMMENTS: Mid AR, Mod MR, mild TV regurgitation, Mild MD. Diastolic function: indeterminate CONTRAST: 0.8 ml Optison Administered, (2.2 ml wasted). ------ SUMMARY: Technically difficult study. Midly enlagred LV size and decreased systolic function with LVEF 26%. Paradoxical septum wall motion abnormality Likely normal RV fucntion. LA is moderately dilated. Mod MR. Trace pericardial effusion. No previous study for the comparison. Confirmed on 08/03/2024 - 16:04:01 by Eric Roberts MD By signing this report, the attending hospitality director certifies that he or she has personally supervised and interpreted the echocardiogram and has reviewed and or edited and agrees with the written comments contained within the report. ASSESSMENT & PLAN Principal Problem: Acute cholecystitis Active Problems: Coronary artery disease with history of myocardial infarction without history of CABG Coronary artery disease due to calcified coronary lesion Complete heart block (CMS/HCC) ([facility]) DM2 (diabetes mellitus, type 2) ([facility]) Biventricular cardiac pacemaker in situ Long discussion held with patient and he desires to proceed with surgery despite the high risk. Will add on the schedule for tomorrow. NPO after midnight. Care plan discussed with the patient. Total time reviewing above and examining the patient and discussing surgical risks 45 mintues Momo Epstein MD 09/03/2024 10:54 AM * Plan of Care - Rebecca Arnett RN - 09/03/2024 3:52 AM CDT Problem: Discharge Planning Goal: Understanding discharge needs will improve Outcome: Progressing Problem: Lack of Knowledge Goal: Ability to develop a pain control plan will improve Outcome: Progressing Problem: Medication Goal: Satisfaction with pain management medication regimen will improve Outcome: Progressing Problem: Sensory Goal: Ability to identify factors that increase pain levels will improve while working to decrease the patient's pain levels Outcome: Progressing Problem: Coping Goal: Ability to cope will improve Outcome: Progressing Problem: Health Behavior Goal: Identification of resources available to assist in meeting health care needs will improve Outcome: Progressing Problem: Lack of Knowledge Goal: Ability to describe self care measures that may prevent or decrease complications related to Type 2 Diabetes will improve Outcome: Progressing Problem: Skin/Tissue Integrity Goal: Skin integrity remains intact Outcome: Progressing Problem: Musculoskeletal Goal: Return mobility to safest level of function Outcome: Progressing Goal: Return ADL status to a safe level of function Outcome: Progressing Goal: Ability to perform activities at highest level will improve Outcome: Progressing Goal: Mobility, ROM and muscle strength will improve Outcome: Progressing Problem: Gastrointestinal Goal: Minimal or absence of nausea and vomiting Outcome: Progressing Problem: Hematologic Goal: Maintains hematologic stability Outcome: Progressing Goals: Clinical Goals for the Shift: monitor vs, ivf, iv abx, provide comfort/safety Nursing to Nursing Communication RAYMOND: DC Transport barriers: No PT/OT orders: No CM anticipated level of care: Mobility Barriers (i.e patient refusal, surgical restrictions, safety concerns, etc.): Lines/Drains: Peripheral IV 09/01/24 20 G Right Antecubital (Active) External Urinary Device (Active) Wound 07/24/24 Incision Chest Anterior;Medial (Active) Wound 07/24/24 Incision Arm Left (Active) Wound 07/24/24 Incision Leg Right (Active) Wound 07/24/[address] and EPW (Active) Surgical Site 06/28/20 Left Eye (Active) Surgical Site 06/28/20 Right Eye (Active) Last BM: Last BM Date: 08/28/24 Medical Barriers: Inadequate pain control and IV medications Incomplete Orders/Imaging/Consults: Significant events over the last shift: vss, room air, npo since midnight, ivf, iv abx, pain managed per mar * Plan of Care - Rosie Hollingsworth RN - 09/02/2024 4:33 PM CDT Problem: Lack of Knowledge Goal: Ability to develop a pain control plan will improve Outcome: Progressing Problem: Gastrointestinal Goal: Minimal or absence of nausea and vomiting Outcome: Progressing Goals: Clinical Goals for the Shift: meds Summary: waiting for right upper quadrant us. Lr 75ml/hr infusing. Receiving iv antbx daily labs wnl, bc x2 drawn today, results pending. * Plan of Care - Rebecca Arnett RN - 09/02/2024 3:16 AM CDT Problem: Discharge Planning Goal: Understanding discharge needs will improve Outcome: Progressing Problem: Lack of Knowledge Goal: Ability to develop a pain control plan will improve Outcome: Progressing Problem: Medication Goal: Satisfaction with pain management medication regimen will improve Outcome: Progressing Problem: Sensory Goal: Ability to identify factors that increase pain levels will improve while working to decrease the patient's pain levels Outcome: Progressing Problem: Coping Goal: Ability to cope will improve Outcome: Progressing Problem: Health Behavior Goal: Identification of resources available to assist in meeting health care needs will improve Outcome: Progressing Problem: Lack of Knowledge Goal: Ability to describe self care measures that may prevent or decrease complications related to Type 2 Diabetes will improve Outcome: Progressing Problem: Skin/Tissue Integrity Goal: Skin integrity remains intact Outcome: Progressing Problem: Musculoskeletal Goal: Return mobility to safest level of function Outcome: Progressing Goal: Return ADL status to a safe level of function Outcome: Progressing Goal: Ability to perform activities at highest level will improve Outcome: Progressing Goal: Mobility, ROM and muscle strength will improve Outcome: Progressing Problem: Gastrointestinal Goal: Minimal or absence of nausea and vomiting Outcome: Progressing Goals: Clinical Goals for the Shift: monitor vs, ivf, npo, remain free from falls, provide safety/comfort Nursing to Nursing Communication RAYMOND: DC Transport barriers: No PT/OT orders: No CM anticipated level of care: Mobility Barriers (i.e patient refusal, surgical restrictions, safety concerns, etc.): Lines/Drains: Peripheral IV 09/01/24 20 G Right Antecubital (Active) External Urinary Device (Active) Wound 07/24/24 Incision Chest Anterior;Medial (Active) Wound 07/24/24 Incision Arm Left (Active) Wound 07/24/24 Incision Leg Right (Active) Wound 07/24/[address] and EPW (Active) Surgical Site 06/28/20 Left Eye (Active) Surgical Site 06/28/20 Right Eye (Active) Last BM: Last BM Date: 08/28/24 Medical Barriers: Inadequate pain control and IV medications Incomplete Orders/Imaging/Consults: Significant events over the last shift: vss, room air, pain managed per mar documented in this encounter Plan of Treatment Pending Results Name Type Priority Associated Diagnoses Date /Time Check Sample Lab Routine 09/03/2024 6 :33 AM CDT FL ERCP Endo Imaging Procedure IP Routine Acute cholecystitis 09/05/2024 3:00 PM CDT Scheduled Orders Name Type Priority Associated Diagnoses Orde r Schedule Check Sample Lab Routine Once for 1 O ccurrences starting 09/03/2024 until 09/03/2024 Scheduled Referrals Name Type Priority Associated Diagnoses Order Schedule Ambulatory referral to Cardiac Rehab Outpatient Referral Routine S/P CABG x 3 Chronic systolic heart failure (CMS/HCC) (HCC) Expected: 09/19/2024 (Approximate), Expires: 09/05/2025 Ambulatory referral to Home Health Outpatient Referral Routine Acute cholecystitis S/P CABG x 3 1 Occurrences starting 09/06/2024 until 03/07/2025 documented as of this encounter Procedures Procedure Name Priority Date/Time Associated Diagnosis Comments EGFR Routine 09/07/2024 6:20 AM CDT DIFFERENTIAL AUTO Routine 09/07/2024 6:2 0 AM CDT CBC WITH AUTO DIFFERENTIAL Routine 09/07/2024 6:20 AM CDT PHOSPHORUS Routine 09/07/2024 6:20 AM CDT BILIRUBIN, DIRECT Routine 09/07/2024 6:2 0 AM CDT COMPREHENSIVE METABOLIC PANEL Routine 09/07/2024 6:20 AM CDT EGFR Routine 09/06/2024 12:32 PM CDT DIFFERENTIAL AUTO Routine 09/06/2024 12: 32 PM CDT CBC WITH AUTO DIFFERENTIAL Routine 09/06/2024 12:32 PM CDT PHOSPHORUS Routine 09/06/2024 12:32 PM CDT BILIRUBIN, DIRECT Routine 09/06/2024 12: 32 PM CDT COMPREHENSIVE METABOLIC PANEL Routine 09/06/2024 12:32 PM CDT POCT GLUCOSE [...] Acute gangrenous appendicitis with perforation and peritonitis TRANSFUSE RED BLOOD CELLS Timed 09/04/2024 1:42 PM CDT POCT GLUCOSE DEVICE Routine 09/04/2024 1 2:37 PM CDT PREPARE RBC STAT 09/04/2024 12:34 PM CDT POCT GLUCOSE DEVICE Routine 09/04/2024 7 :52 AM CDT EGFR Routine 09/04/2024 5:29 AM CDT DIFFERENTIAL AUTO Routine 09/04/2024 5:2 9 AM CDT CBC WITH AUTO DIFFERENTIAL Routine 09/04/2024 5:29 AM CDT TYPE AND SCREEN Timed 09/04/2024 5:29 AM CDT PHOSPHORUS Routine 09/04/2024 5:29 AM CDT BILIRUBIN, DIRECT Routine 09/04/2024 5:2 9 AM CDT COMPREHENSIVE METABOLIC PANEL Routine 09/04/2024 5:29 AM CDT POCT GLUCOSE DEVICE Routine 09/04/2024 4 :37 AM CDT POCT GLUCOSE DEVICE Routine 09/04/2024 1 2:01 AM CDT EGFR Routine 09/03/2024 6:33 AM CDT DIFFERENTIAL AUTO Routine 09/03/2024 6:3 3 AM CDT B CHECK SAMPLE Routine 09/03/2024 6:33 AM CDT CBC WITH AUTO DIFFERENTIAL Routine 09/03/2024 6:33 AM CDT PHOSPHORUS Routine 09/03/2024 6:33 AM CDT BILIRUBIN, DIRECT Routine 09/03/2024 6:3 3 AM CDT COMPREHENSIVE METABOLIC PANEL Routine 09/03/2024 6:33 AM CDT US RUQ IP Routine 09/02/2024 5:26 PM CDT TROPONIN T HIGH-SENSITIVITY 6-HOUR Timed 09/02/2024 4:20 PM CDT TROPONIN T HIGH-SENSITIVITY 4-HR Timed 09/02/2024 2:29 PM CDT TROPONIN T HIGH-SENSITIVITY 2-HOUR Timed 09/02/2024 11:08 AM CDT BLOOD CULTURE Routine 09/02/2024 11:08 AM CDT TROPONIN T HIGH-SENSITIVITY SERIES (BASELINE, 2HR, 4HR, 6HR) Routine 09/02/2024 9:38 AM CDT SEPSIS LACTATE WITH REFLEX Routine 09/02/2024 9:38 AM CDT BLOOD CULTURE Routine 09/02/2024 9:38 AM CDT PHOSPHORUS Routine 09/02/2024 9:38 AM CDT MAGNESIUM Routine 09/02/2024 9:38 AM CDT ECG 12-LEAD Routine 09/02/2024 8:21 AM CDT EGFR Routine 09/02/2024 6:11 AM CDT DIFFERENTIAL AUTO Routine 09/02/2024 6:1 1 AM CDT CBC WITH AUTO DIFFERENTIAL Routine 09/02/2024 6:11 AM CDT PHOSPHORUS Routine 09/02/2024 6:11 AM CDT BILIRUBIN, DIRECT Routine 09/02/2024 6:1 1 AM CDT COMPREHENSIVE METABOLIC PANEL Routine 09/02/2024 6:11 AM CDT EGFR Routine 09/01/2024 9:13 PM CDT PHOSPHORUS Routine 09/01/2024 9:13 PM CDT BILIRUBIN, DIRECT Routine 09/01/2024 9:1 3 PM CDT COMPREHENSIVE METABOLIC PANEL Routine 09/01/2024 9:13 PM CDT documented in this encounter Results * eGFR (09/07/2024 6:20 AM CDT) [...] Mclean MD LAB BLOOD ORDERABLES Final Result [facility] [address] Department [place] [address] * Differential, auto (09/07/2024 6:20 AM CDT) Neutrophil abs 5.4 1.5 - 6.5 K/cumm Imm gran abs 0.1 0.0 - 0.1 K/cumm [facility] Lymphocyte abs 0.9 0.8 - 3.3 K/cumm [facility] Monocyte abs 0.4 0.2 - 0.8 K/cumm [facility] Eosinophil abs 0.0 0.0 - 0.5 K/cumm [facility] Basophil abs 0.0 0.0 - 0.1 K/cumm [facility] Neutrophil pct 78.4 % [facility] Comment: Interpretive Data Percent cell count reference ranges are not reported, since discordance with absolute values may lead to misinterpretation of CBC data. Current Interpretive Data was last revised on 2018. Imm gran pct 2.0 % [facility] Comment: Interpretive Data Percent cell count reference ranges are not reported, since discordance with absolute values may lead to misinterpretation of CBC data. Current Interpretive Data was last revised on 2018. Lymphocyte pct 12.8 % [facility] Comment: Interpretive Data Percent cell count reference ranges are not reported, since discordance with absolute values may lead to misinterpretation of CBC data. Current Interpretive Data was last revised on 2018. Monocyte pct 6.1 % [facility] Comment: Interpretive Data Percent cell count reference ranges are not reported, since discordance with absolute values may lead to misinterpretation of CBC data. Current Interpretive Data was last revised on 2018. Eosinophil pct 0.6 % [facility] Comment: Interpretive Data Percent cell count reference ranges are not reported, since discordance with absolute values may lead to misinterpretation of CBC data. Current Interpretive Data was last revised on 2018. Basophil pct 0.1 % [facility] Comment: Interpretive Data Percent cell count reference ranges are not reported, since discordance with absolute values may lead to misinterpretation of CBC data. Current Interpretive Data was last revised on 2018. Blood 09/07/2024 6:20 AM CDT 09/07/2024 6:38 AM CDT Milton Mclean MD LAB BLOOD ORDERABLES Final Result Performing Organization Address [facility] Co de Phone Number [facility] [address] [facility] [employer] [place], [place] [id number] * Phosphorus (09/07/2024 6:20 AM CDT) Pathologist [facility] Phosphorus, pl 3.2 2.3 - 4.5 mg/dL Blood 09/07/2024 6:20 AM CDT 09/07/2024 6:24 AM CDT Milton Mclean MD LAB BLOOD ORDERABLES Final Result Performing Organization Address [facility] de Phone Number [facility] [address] [facility] [place] [address] * Bilirubin, direct (09/07/2024 6:20 AM CDT) Pathologist [facility] Bilirubin, direct 0.2 0.1 - 0.3 mg/dL Blood 09/07/2024 6:20 AM CDT 09/07/2024 6:24 AM CDT Result [facility] Milton Mclean MD LAB BLOOD ORDERABLES Final Result Performing Organization Address [facility] Co de Phone Number [facility] [address] [facility] [employer] [place], [place] [id number] * (ABNORMAL) Comprehensive metabolic panel (09/07/2024 6:20 AM CDT) Sodium 135 135 - 145 mmol/L Potassium, pl 4.1 3.3 - 4.9 mmol/L [facility] Chloride 104 97 - 110 mmol/L [facility] CO2 19(L) 22 - 32 mmol/L [facility] Anion gap 12 2 - 15 mmol/L [facility] BUN 24 6 - 25 mg/dL [facility] Creatinine 1.11 0.80 - 1.30 mg/dL [facility] Glucose 111 70 - 199 mg/dL [facility] Comment: Interpretive Data Fasting glucose >/= 126 [...] 2022. Calcium 7.6(L) 8.5 - 10.3 mg/dL [facility] Bilirubin, total 0.3 0.1 - 1.2 mg/dL [facility] Protein, pl 6.0(L) 6.5 - 8.5 g/dL [facility] Albumin 2.4(L) 3.5 - 5.0 g/dL [facility] Alk phos 156(H) 40 - 130 Units/L [facility] ALT 20 7 - 55 Units/L [facility] AST 38 10 - 50 Units/L [facility] Blood 09/07/2024 6:20 AM CDT 09/07/2024 6:24 AM CDT Milton Mclean MD LAB BLOOD ORDERABLES Final Result [facility] [address] Department [place] [address] * (ABNORMAL) CBC with auto differential (09/07/2024 6:20 AM CDT) WBC 6.9 3.8 - 9.9 K/cumm Hgb 8.6(L) 13.0 - 17.5 g/dL [facility] Hct 29.5(L) 38.9 - 50.3 % [facility] Plt 173 150 - 400 K/cumm [facility] MPV 9.2 9.1 - 12.[address] [facility] RBC 3.62(L) 4.30 - 5.80 M/cumm [facility] MCV 81.5 81.3 - 96.[address] [facility] MCH 23.8(L) 27.1 - 33.[address] [facility] MCHC 29.2(L) 32.3 - 35.7 g/dL [facility] RDW CV 17.2(H) 11.1 - 14.9 % [facility] RDW SD 50.4(H) 35.7 - 48.[address] [facility] NRBC abs 0.02(H) 0.00 - 0.01 K/cumm [facility] Blood 09/07/2024 6:20 AM CDT 09/07/2024 6:38 AM CDT Milton Mclean MD LAB BLOOD ORDERABLES Final Result [facility] [address] Department [place] [address] * eGFR (09/06/2024 12:32 PM CDT) eGFR [...] PM CDT 09/06/2024 12:43 PM CDT us Ever Anton MD LAB BLOOD ORDERABLES Final Res ult Performing Organization Address City/[facility] Co de Phone Number [facility] [address] [facility] [place] [address] * Phosphorus (09/06/2024 12:32 PM CDT) Phosphorus, pl 3.1 2.3 - 4.5 mg/dL Blood 09/06/2024 12:3 2 PM CDT 09/06/2024 12:43 PM CDT us Ever Anton MD LAB BLOOD ORDERABLES Final Res ult Performing Organization Address [facility] Co de Phone Number [facility] [address] [place] [address] * Bilirubin, direct (09/06/2024 12:32 PM CDT) Bilirubin, direct 0.2 0.1 - 0.3 mg/dL Blood 09/06/2024 12:3 2 PM CDT 09/06/2024 12:43 PM CDT us Ever Anton MD LAB BLOOD ORDERABLES Final Res ult Performing Organization Address City/[facility] Co de Phone Number [facility] [address] Department [employer] [place], [place] [phone] * (ABNORMAL) Comprehensive metabolic panel (09/06/2024 12:32 PM CDT) Sodium 145 135 - 145 mmol/L Potassium, pl 3.6 3.3 - 4.9 mmol/L [facility] Chloride 107 97 - 110 mmol/L [facility] CO2 18(L) 22 - 32 mmol/L [facility] Anion gap 20(H) 2 - 15 mmol/L [facility] BUN 20 6 - 25 mg/dL [facility] Creatinine 1.09 0.80 - 1.30 mg/dL [facility] Glucose 123 70 - 199 mg/dL [facility] Comment: Interpretive Data Fasting glucose >/= 126 [...] 2022. Calcium 7.4(L) 8.5 - 10.3 mg/dL [facility] Bilirubin, total 0.3 0.1 - 1.2 mg/dL [facility] Protein, pl 6.2(L) 6.5 - 8.5 g/dL [facility] Albumin 2.7(L) 3.5 - 5.0 g/dL [facility] Alk phos 145(H) 40 - 130 Units/L [facility] ALT 21 7 - 55 Units/L [facility] AST 35 10 - 50 Units/L [facility] Blood 09/06/2024 12:3 2 PM CDT 09/06/2024 12:43 PM CDT us Ever Anton MD LAB BLOOD ORDERABLES Final Res ult [facility] [address] Department [place] [address] * (ABNORMAL) Differential, auto (09/06/2024 12:32 PM CDT) Neutrophil abs 4.9 1.5 - 6.5 K/cumm Imm gran abs 0.1 0.0 - 0.1 K/cumm [facility] Lymphocyte abs 0.6(L) 0.8 - 3.3 K/cumm [facility] Monocyte abs 0.4 0.2 - 0.8 K/cumm [facility] Eosinophil abs 0.0 0.0 - 0.5 K/cumm [facility] Basophil abs 0.0 0.0 - 0.1 K/cumm [facility] Neutrophil pct 81.5 % [facility] Comment: Interpretive Data Percent cell count reference ranges are not reported, since discordance with absolute values may lead to misinterpretation of CBC data. Current Interpretive Data was last revised on 2018. Imm gran pct 2.2 % [facility] Comment: Interpretive Data Percent cell count reference ranges are not reported, since discordance with absolute values may lead to misinterpretation of CBC data. Current Interpretive Data was last revised on 2018. Lymphocyte pct 9.9 % [facility] Comment: Interpretive Data Percent cell count reference ranges are not reported, since discordance with absolute values may lead to misinterpretation of CBC data. Current Interpretive Data was last revised on 2018. Monocyte pct 6.2 % [facility] Comment: Interpretive Data Percent cell count reference ranges are not reported, since discordance with absolute values may lead to misinterpretation of CBC data. Current Interpretive Data was last revised on 2018. Eosinophil pct 0.0 % [facility] Comment: Interpretive Data Percent cell count reference ranges are not reported, since discordance with absolute values may lead to misinterpretation of CBC data. Current Interpretive Data was last revised on 2018. Basophil pct 0.2 % [facility] Comment: Interpretive Data Percent cell count reference ranges are not reported, since discordance with absolute values may lead to misinterpretation of CBC data. Current Interpretive Data was last revised on 2018. Blood 09/06/2024 12:3 2 PM CDT 09/06/2024 12:43 PM CDT Ever Anton MD LAB BLOOD ORDERABLES Final Res ult Performing Organization Address [facility]/ZIP Co de Phone Number [facility] [address] Department of Laboratories [place], [place] [phone] * (ABNORMAL) CBC with auto differential (09/06/2024 12:32 PM CDT) [facility] WBC 6.0 3.8 - 9.9 K/cumm Hgb 7.7(L) 13.0 - 17.5 g/dL [facility] Hct 25.7(L) 38.9 - 50.3 % [facility] Plt 156 150 - 400 K/cumm [facility] MPV 8.6(L) 9.1 - 12.[address] [facility] RBC 3.17(L) 4.30 - 5.80 M/cumm [facility] MCV 81.1(L) 81.3 - 96.[address] [facility] MCH 24.3(L) 27.1 - 33.[address] [facility] MCHC 30.0(L) 32.3 - 35.7 g/dL [facility] RDW CV 17.1(H) 11.1 - 14.9 % [facility] RDW SD 50.9(H) 35.7 - 48.[address] [facility] NRBC abs 0.02(H) 0.00 - 0.01 K/cumm [facility] Blood 09/06/2024 12:3 2 PM CDT 09/06/2024 12:43 PM CDT Milton Mclean MD LAB BLOOD ORDERABLES Final Result [facility] [address] Department of Laboratories [place], [place] [phone] * POCT glucose (09/06/2024 6:33 AM CDT) Glucose, POC 141 70 - 199 mg/dL Comment: For Glucose values <35 mg/dl when Hematocrit is >60 mg/dl,the test may not accurately detect significant hypoglycemia,and testing in the Laboratory should be considered if clinically indicated. Blood 09/06/2024 6:33 AM CDT 09/06/2024 6:33 AM CDT us Giovanny Garcia MD LAB POCT ORDERABLES - DEVICE Fin al Result Performing Organization Address [facility] Co de Phone Number [facility] [address] Department [place] [address] * FL ERCP Biliary and Pancreatic (09/05/2024 2:57 PM CDT) Narrative [facility] - 09/05/2024 3:06 PM CDT The images from this study are not interpreted by Radiology. ??Please refer to the physician's procedure / OR operative note. us Milton Mclean MD IMG FLUOROSCOPY PROCEDURES Final Result Performing Organization Address [facility] de Phone Number [email or web address] * ERCP (09/05/2024 2:20 PM CDT) Anatomical Region Laterality Modality Other Narrative Procedure Note Milton Mclean MD - 09/05/2024 2:20 PM CDT ENDOSCOPY LAB Patient Name: Abiel Fink Procedure Date: 09/05/2024 2:20 PM Admit Type: Inpatient Room: [facility] Date of : 1950 Instrument Name: [id number] Gender: Male Note Status: Finalized Procedure: ERCP Indications: Bile leak Providers: Milton Mclean M.D. Referring MD: Juan Connolly M.D. Medicines: Monitored Anesthesia Care, Indomethacin 100 mg MD Complications: No immediate complications. Estimated Blood Loss: [...] The patient tolerated the procedurewell. Findings: A bargain table clerk film of the abdomen was obtained. One [...] 09/05/2024 2:20 PM Scope In: Scope Out: Milton Mclean MD ENDOSCOPY PROCEDURES Final Result [...] DEVICE Fin al Result Performing Organization Address [facility] Co de Phone Number [facility] [address] Department of [employer] [place], [place] [phone] * POCT glucose (09/05/2024 8:41 AM CDT) Pathologist [facility] Glucose, POC 142 70 - 199 mg/dL Comment: For Glucose values <35 mg/dl when Hematocrit is >60 mg/dl,the test may not accurately detect significant hypoglycemia,and testing in the Laboratory should be considered if clinically indicated. Blood 09/05/2024 8:41 AM CDT 09/05/2024 8:41 AM CDT Giovanny Garcia MD LAB POCT ORDERABLES - DEVICE Fin al Result Performing Organization Address [facility] Co de Phone Number [facility] [address] Department of [employer] [place], [place] [phone] * (ABNORMAL) Differential, auto (09/05/2024 6:40 AM CDT) Pathologist [facility] Neutrophil abs 6.0 1.5 - 6.5 K/cumm Imm gran abs 0.1 0.0 - 0.1 K/cumm [facility] Lymphocyte abs 0.5(L) 0.8 - 3.3 K/cumm [facility] Monocyte abs 0.3 0.2 - 0.8 K/cumm [facility] Eosinophil abs 0.0 0.0 - 0.5 K/cumm [facility] Basophil abs 0.0 0.0 - 0.1 K/cumm [facility] Neutrophil pct 85.1 % [facility] Comment: Interpretive Data Percent cell count reference ranges are not reported, since discordance with absolute values may lead to misinterpretation of CBC data. Current Interpretive Data was last revised on 2018. Imm gran pct 2.0 % [facility] Comment: Interpretive Data Percent cell count reference ranges are not reported, since discordance with absolute values may lead to misinterpretation of CBC data. Current Interpretive Data was last revised on 2018. Lymphocyte pct 7.6 % [facility] Comment: Interpretive Data Percent cell count reference ranges are not reported, since discordance with absolute values may lead to misinterpretation of CBC data. Current Interpretive Data was last revised on 2018. Monocyte pct 4.8 % [facility] Comment: Interpretive Data Percent cell count reference ranges are not reported, since discordance with absolute values may lead to misinterpretation of CBC data. Current Interpretive Data was last revised on 2018. Eosinophil pct 0.1 % [facility] Comment: Interpretive Data Percent cell count reference ranges are not reported, since discordance with absolute values may lead to misinterpretation of CBC data. Current Interpretive Data was last revised on 2018. Basophil pct 0.4 % [facility] Comment: Interpretive Data Percent cell count reference ranges are not reported, since discordance with absolute values may lead to misinterpretation of CBC data. Current Interpretive Data was last revised on 2018. Blood 09/05/2024 6:40 AM CDT 09/05/2024 6:40 AM CDT us Deanna Bangura MD LAB BLOOD ORDERABLES Final Res ult [facility] [address] Department [place] [address] * (ABNORMAL) CBC with auto differential (09/05/2024 6:40 AM CDT) Pathologist [facility] WBC 7.1 3.8 - 9.9 K/cumm Hgb 10.0(L) 13.0 - 17.5 g/dL [facility] Hct 34.3(L) 38.9 - 50.3 % [facility] Plt 185 150 - 400 K/cumm [facility] MPV 9.4 9.1 - 12.[address] [facility] RBC 4.24(L) 4.30 - 5.80 M/cumm [facility] MCV 80.9(L) 81.3 - 96.[address] [facility] MCH 23.6(L) 27.1 - 33.[address] [facility] MCHC 29.2(L) 32.3 - 35.7 g/dL [facility] RDW CV 16.9(H) 11.1 - 14.9 % [facility] RDW SD 49.4(H) 35.7 - 48.[address] [facility] NRBC abs 0.00 0.00 - 0.01 K/cumm [facility] Blood 09/05/2024 6:40 AM CDT 09/05/2024 6:46 AM CDT us Deanna Bangura MD LAB BLOOD ORDERABLES Final Res ult [facility] [address] Department [place] [address] * eGFR (09/05/2024 5:27 AM CDT) [facility] eGFR >90 >=60 mL/min/1. 73 m2 [...] ORDERABLES Final Re sult Performing Organization Address City/[facility] Co de Phone Number [facility] [address] Department of [employer] [place], [place] [phone] * Phosphorus (09/05/2024 5:27 AM CDT) Phosphorus, pl 4.4 2.3 - 4.5 mg/dL Blood 09/05/2024 5:27 AM CDT 09/05/2024 5:41 AM CDT Jose Enriquez MD LAB BLOOD ORDERABLES Final Re sult Performing Organization Address [facility] de Phone Number [facility] [address] Department of [employer] [place], [place] [phone] * Bilirubin, direct (09/05/2024 5:27 AM CDT) Bilirubin, direct 0.3 0.1 - 0.3 mg/dL Blood 09/05/2024 5:27 AM CDT 09/05/2024 5:41 AM CDT us Jose Enriquez MD LAB BLOOD ORDERABLES Final Re sult [facility] [address] Department [place] [address] * (ABNORMAL) Comprehensive metabolic panel (09/05/2024 5:27 AM CDT) Sodium 139 135 - 145 mmol/L Potassium, pl 4.3 3.3 - 4.9 mmol/L [facility] Chloride 105 97 - 110 mmol/L [facility] CO2 22 22 - 32 mmol/L [facility] Anion gap 12 2 - 15 mmol/L [facility] BUN 12 6 - 25 mg/dL [facility] Creatinine 0.83 0.80 - 1.30 mg/dL [facility] Glucose 139 70 - 199 mg/dL [facility] Comment: Interpretive Data Fasting glucose >/= 126 [...] 2022. Calcium 8.3(L) 8.5 - 10.3 mg/dL [facility] Bilirubin, total 0.5 0.1 - 1.2 mg/dL [facility] Protein, pl 6.8 6.5 - 8.5 g/dL [facility] Albumin 3.1(L) 3.5 - 5.0 g/dL [facility] Alk phos 175(H) 40 - 130 Units/L [facility] ALT 24 7 - 55 Units/L [facility] AST 42 10 - 50 Units/L [facility] Blood 09/05/2024 5:27 AM CDT 09/05/2024 5:41 AM CDT Jose Enriquez MD LAB BLOOD ORDERABLES Final Re sult Performing Organization Address [facility] Co de Phone Number [facility] [address] [facility] [place] [address] * POCT glucose (09/05/2024 4:29 AM CDT) [...] DEVICE F inal Result Performing Organization Address [facility] de Phone Number [facility] [address] [facility] [employer] [place], [place] [phone] * POCT glucose (09/04/2024 11:46 PM CDT) [...] DEVICE F inal Result Performing Organization Address [facility] Co de Phone Number [facility] [address] [facility] [employer] [place], [place] [phone] * POCT glucose (09/04/2024 8:12 PM CDT) [...] DEVICE F inal Result Performing Organization Address [facility] Co de Phone Number [facility] [address] Department [employer] [place], [place] [phone] * POCT glucose (09/04/2024 3:33 PM CDT) Pathologist [facility] Glucose, POC 139 70 - 199 mg/dL Comment: For Glucose values <35 mg/dl when Hematocrit is >60 mg/dl,the test may not accurately detect significant hypoglycemia,and testing in the Laboratory should be considered if clinically indicated. Blood 09/04/2024 3:33 PM CDT 09/04/2024 3:33 PM CDT Result [facility] Deanna Bangura MD LAB POCT ORDERABLES - DEVICE F inal Result Performing Organization Address [facility] de Phone Number [facility] [address] [facility] [employer] [place], [place] [phone] * Aerobic and anaerobic culture and gram stain Bile Abdominal (09/04/2024 2:50 PM CDT) [facility] Direct Specimen Exam Stain: No organisms seen. No polymorphonuclear leukocytes seen. Report Final Report: No growth [facility] Bile (Abdominal) 09/04/2024 2:50 PM CDT 09/04/2024 3:18 PM CDT Narrative [facility] - 09/07/2024 2:00 PM CDT Bile Ever Anton MD LAB MICROBIOLOGY - GENERAL ORD ERABLES Final Result Performing Organization Address [facility] Co de Phone Number [facility] [address] Department [place] [address] * Transfuse RBC (09/04/2024 2:32 PM CDT) Blood us Gorge Jones MD BLOOD TRANSFUSION ORDERABLE S Edited Result - Final [facility] [address] Department [place] [address] * Surgical pathology (09/04/2024 2:06 PM CDT) Tissue (Gallbladder) 09/04/2024 2:06 PM CDT Comment:Placed in Formalin a t end of Procedure. Narrative PATHOLOGY [facility] - 09/07/2024 4:40 PM CDT [place] [id number] [place], [place] ??[phone] Tele: ?? Radha Milner MD - Pull Up Hand Note to Patients: This report may contain [...] details. SURGICAL PATHOLOGY REPORT Patient Name: ??ABIEL FINKTeodora Address: ??[address] [place] [address]64 Gender: ??M : ??1950 (Age: 74) Service: ??Surgery Location: ??[id number], ?? Hospital #: ??[id number] Patient Type: ??[facility] INPATIENT Accession #: ? [id number] Taken: ? 09/04/2024 Received ? 09/04/2024 Reported: [...] DESCRIPTION: Received in formalin labeled with ABIEL FINK and gallbladder is a 7.3 x 3.5 [...] gallbladder. ??No mass lesion is grossly identified. Metal Loader sections are submitted as follows: ??A1 - [...] malignancy is evident. Clerical Data Follows A; 06493, [id number] REPORT IMAGES AND/OR SCANNED DOCUMENTS ONLY VIEWABLE IN PDF FORMAT The immunohistochemical test(s) cited in this report, if any, was developed and its performance characteristics determined by [facility] Pathology Department. ??It has not been cleared or approved by the U.S. Food and Drug Administration. ??The FDA has determined that such clearance or approval is not necessary. ??This test is used for clinical purposes. ??It should not be regarded as investigational or for research. ??[facility] Laboratory is certified under the Clinical [...] part or completely in the following laboratories: [facility], [address] [facility], [place], [place] [address] [place] [address], [address] [place] [id number]. us Ever Anton MD LAB PATHOLOGY ORDERABLES Final Result Performing Organization Address City/[facility]/ZIP Co de Phone Number PATHOLOGY [facility] Laboratory Receiving [address] [place] [address] * POCT glucose (09/04/2024 12:37 PM CDT) [facility] Glucose, POC 107 70 - 199 mg/dL Comment: For Glucose values <35 mg/dl when Hematocrit is >60 mg/dl,the test may not accurately detect significant hypoglycemia,and testing in the Laboratory should be considered if clinically indicated. Blood 09/04/2024 12:3 7 PM CDT 09/04/2024 12:37 PM CDT Deanna Bangura MD LAB POCT ORDERABLES - DEVICE F inal Result [facility] [address] Department [place] [address] * Prepare RBC: 1 Units (09/04/2024 12:34 PM CDT) Pathologist [facility] Product code [id number] Unit Number [id number] [facility] Product Blood Type OPOS [facility] Dispense Status PRESUMED TRANSFUSED [facility] Blood 09/04/2024 12:[address] [facility] - 09/05/2024 10:15 AM CDT Specify Procedure:->Hold for procedure Are special requirements needed? (All products are leukoreduced and CMV- safe)- >No Date required:-[id number] LRRBC # of Cihis-2-Ltazl Reasons:-Pre-op Hgb <8 g/dL} Ever Anton MD BLOOD BANK PRODUCT ORDERABLES Final Result Performing Organization Address [facility] Co de Phone Number [facility] [address] Department [place] [address] * POCT glucose (09/04/2024 7:52 AM CDT) Glucose, POC 107 70 - 199 mg/dL Comment: For Glucose values <35 mg/dl when Hematocrit is >60 mg/dl,the test may not accurately detect significant hypoglycemia,and testing in the Laboratory should be considered if clinically indicated. Blood 09/04/2024 7:52 AM CDT 09/04/2024 7:52 AM CDT Deanna Bangura MD LAB POCT ORDERABLES - DEVICE F inal Result Performing Organization Address [facility] Co de Phone Number [facility] [address] Department [place] [address] * eGFR (09/04/2024 5:29 AM CDT) eGFR >90 >=60 mL/min/1. 73 [...] MD LAB BLOOD ORDERABLES Final Re sult [facility] [address] Department [place] [address] * Differential, auto (09/04/2024 5:29 AM CDT) Neutrophil abs 3.0 1.5 - 6.5 K/cumm Imm gran abs 0.1 0.0 - 0.1 K/cumm [facility] Lymphocyte abs 1.0 0.8 - 3.3 K/cumm [facility] [facility] Monocyte abs 0.6 0.2 - 0.8 K/cumm [facility] Eosinophil abs 0.2 0.0 - 0.5 K/cumm [facility] Basophil abs 0.1 0.0 - 0.1 K/cumm [facility] Neutrophil pct 61.1 % [facility] Comment: Interpretive Data Percent cell count reference ranges are not reported, since discordance with absolute values may lead to misinterpretation of CBC data. Current Interpretive Data was last revised on 2018. Imm gran pct 1.2 % [facility] Comment: Interpretive Data Percent cell count reference ranges are not reported, since discordance with absolute values may lead to misinterpretation of CBC data. Current Interpretive Data was last revised on 2018. Lymphocyte pct 20.5 % [facility] Comment: Interpretive Data Percent cell count reference ranges are not reported, since discordance with absolute values may lead to misinterpretation of CBC data. Current Interpretive Data was last revised on 2018. Monocyte pct 11.3 % [facility] Comment: Interpretive Data Percent cell count reference ranges are not reported, since discordance with absolute values may lead to misinterpretation of CBC data. Current Interpretive Data was last revised on 2018. Eosinophil pct 4.7 % [facility] Comment: Interpretive Data Percent cell count reference ranges are not reported, since discordance with absolute values may lead to misinterpretation of CBC data. Current Interpretive Data was last revised on 2018. Basophil pct 1.2 % [facility] Comment: Interpretive Data Percent cell count reference ranges are not reported, since discordance with absolute values may lead to misinterpretation of CBC data. Current Interpretive Data was last revised on 2018. Blood 09/04/2024 5:29 AM CDT 09/04/2024 5:39 AM CDT us Jose Enriquez MD LAB BLOOD ORDERABLES Final Re sult Performing Organization Address City/[facility]/ZIP Co de Phone Number [facility] [address] Department [place] [address] * Phosphorus (09/04/2024 5:29 AM CDT) Phosphorus, pl 3.3 2.3 - 4.5 mg/dL Blood 09/04/2024 5:29 AM CDT 09/04/2024 5:39 AM CDT us Jose Enriquez MD LAB BLOOD ORDERABLES Final Re sult Performing Organization Address City/[facility]/ZIP Co de Phone Number [facility] [address] Department [place] [address] * Bilirubin, direct (09/04/2024 5:29 AM CDT) Pathologist [facility] Bilirubin, direct 0.2 0.1 - 0.3 mg/dL Blood 09/04/2024 5:29 AM CDT 09/04/2024 5:39 AM CDT Jose Enriquez MD LAB BLOOD ORDERABLES Final Re sult [facility] [address] Department [place] [address] * (ABNORMAL) Comprehensive metabolic panel (09/04/2024 5:29 AM CDT) [facility] Sodium 139 135 - 145 mmol/L Potassium, pl 3.3 3.3 - 4.9 mmol/L [facility] Chloride 106 97 - 110 mmol/L [facility] CO2 22 22 - 32 mmol/L [facility] Anion gap 11 2 - 15 mmol/L [facility] BUN 11 6 - 25 mg/dL [facility] Creatinine 0.81 0.80 - 1.30 mg/dL [facility] Glucose 115 70 - 199 mg/dL [facility] Comment: Interpretive Data Fasting glucose >/= 126 [...] 2022. Calcium 8.0(L) 8.5 - 10.3 mg/dL [facility] Bilirubin, total 0.4 0.1 - 1.2 mg/dL [facility] Protein, pl 6.1(L) 6.5 - 8.5 g/dL [facility] Albumin 2.8(L) 3.5 - 5.0 g/dL [facility] Alk phos 176(H) 40 - 130 Units/L [facility] ALT 23 7 - 55 Units/L [facility] AST 45 10 - 50 Units/L [facility] Blood 09/04/2024 5:29 AM CDT 09/04/2024 5:39 AM CDT Jose Enriquez MD LAB BLOOD ORDERABLES Final Re sult [facility] [address] Department [place] [place] [address] * Type and screen (09/04/2024 5:29 AM CDT) ABO Rh O Positive Janell, indirect Negative [facility] Blood 09/04/2024 5:29 AM CDT 09/04/2024 5:[address] [facility] - 09/04/2024 6:16 AM CDT Has the patient had Daratumumab or Isatuximab in the past 6 months?->Unknown Wiley Hernandez MD LAB BLOOD BANK TEST ORDERABLES Final Result Performing Organization Address City/[facility]/ZIP Co de Phone Number [facility] [address] Department [place] [address] * (ABNORMAL) CBC with auto differential (09/04/2024 5:29 AM CDT) WBC 4.9 3.8 - 9.9 K/cumm Hgb 7.6(L) 13.0 - 17.5 g/dL [facility] Hct 26.2(L) 38.9 - 50.3 % [facility] Plt 192 150 - 400 K/cumm [facility] MPV 9.3 9.1 - 12.[address] [facility] RBC 3.29(L) 4.30 - 5.80 M/cumm [facility] MCV 79.6(L) 81.3 - 96.[address] [facility] MCH 23.1(L) 27.1 - 33.[address] [facility] MCHC 29.0(L) 32.3 - 35.7 g/dL [facility] RDW CV 16.7(H) 11.1 - 14.9 % [facility] RDW SD 47.9 35.7 - 48.[address] [facility] NRBC abs 0.00 0.00 - 0.01 K/cumm [facility] Blood 09/04/2024 5:29 AM CDT 09/04/2024 5:39 AM CDT Milton Mclean MD LAB BLOOD ORDERABLES Final Result Performing Organization Address [facility]/ZIP Co de Phone Number [facility] [address] [employer] [place], [place] [id number] * POCT glucose (09/04/2024 4:37 AM CDT) [...] DEVICE F inal Result Performing Organization Address City/[facility]/ZIP Co de Phone Number [facility] [address] [facility] [employer] [place], [place] [id number] * POCT glucose (09/04/2024 12:01 AM CDT) Glucose, POC 169 70 - 199 mg/dL Comment: For Glucose values <35 mg/dl when Hematocrit is >60 mg/dl,the test may not accurately detect significant hypoglycemia,and testing in the Laboratory should be considered if clinically indicated. Blood 09/04/2024 12:0 1 AM CDT 09/04/2024 12:01 AM CDT Deanna Bangura MD LAB POCT ORDERABLES - DEVICE F inal Result Performing Organization Address [facility]/ZIP Co de Phone Number [facility] [address] [facility] [place] [place] [address] * Check Sample (09/03/2024 6:33 AM CDT) ABO Rh O Positive MBC HCLL OTHER 09/03/2024 6:33 AM CDT 09/03/2024 8:44 PM CDT Deanna Bangura MD LAB BLOOD ORDERABLES Final Res ult Performing Organization Address [facility] Co de Phone Number [facility] [address] Department [place] [address] MBC * eGFR (09/03/2024 6:33 AM CDT) eGFR [...] ORDERABLES Final Re sult Performing Organization Address City/[facility] Co de Phone Number [facility] [address] [place] [address] * Phosphorus (09/03/2024 6:33 AM CDT) Phosphorus, pl 2.8 2.3 - 4.5 mg/dL Blood 09/03/2024 6:33 AM CDT 09/03/2024 7:32 AM CDT Kyrie Tucker MD LAB BLOOD ORDERABLES Final Re sult Performing Organization Address [facility] Co de Phone Number [facility] [address] Department of [employer] [place], [place] [id number] * Bilirubin, direct (09/03/2024 6:33 AM CDT) Pathologist [facility] Bilirubin, direct 0.3 0.1 - 0.3 mg/dL Blood 09/03/2024 6:33 AM CDT 09/03/2024 7:32 AM CDT Kyrie Tucker MD LAB BLOOD ORDERABLES Final Re sult Performing Organization Address [facility] Co de Phone Number [facility] [address] Department of [employer] [place], [place] [id number] * Differential, auto (09/03/2024 6:33 AM CDT) Neutrophil abs 3.3 1.5 - 6.5 K/cumm Imm gran abs 0.1 0.0 - 0.1 K/cumm [facility] Lymphocyte abs 1.0 0.8 - 3.3 K/cumm [facility] Monocyte abs 0.6 0.2 - 0.8 K/cumm [facility] Eosinophil abs 0.3 0.0 - 0.5 K/cumm [facility] Basophil abs 0.1 0.0 - 0.1 K/cumm [facility] Neutrophil pct 63.1 % [facility] Comment: Interpretive Data Percent cell count reference ranges are not reported, since discordance with absolute values may lead to misinterpretation of CBC data. Current Interpretive Data was last revised on 2018. Imm gran pct 1.0 % [facility] Comment: Interpretive Data Percent cell count reference ranges are not reported, since discordance with absolute values may lead to misinterpretation of CBC data. Current Interpretive Data was last revised on 2018. Lymphocyte pct 18.3 % [facility] Comment: Interpretive Data Percent cell count reference ranges are not reported, since discordance with absolute values may lead to misinterpretation of CBC data. Current Interpretive Data was last revised on 2018. Monocyte pct 11.6 % [facility] Comment: Interpretive Data Percent cell count reference ranges are not reported, since discordance with absolute values may lead to misinterpretation of CBC data. Current Interpretive Data was last revised on 2018. Eosinophil pct 4.8 % [facility] Comment: Interpretive Data Percent cell count reference ranges are not reported, since discordance with absolute values may lead to misinterpretation of CBC data. Current Interpretive Data was last revised on 2018. Basophil pct 1.2 % [facility] Comment: Interpretive Data Percent cell count reference ranges are not reported, since discordance with absolute values may lead to misinterpretation of CBC data. Current Interpretive Data was last revised on 2018. Blood 09/03/2024 6:33 AM CDT 09/03/2024 7:32 AM CDT Jose Enriquez MD LAB BLOOD ORDERABLES Final Re sult Performing Organization Address [facility]/ZIP Co de Phone Number [facility] [address] Department [place] [address] * (ABNORMAL) CBC with auto differential (09/03/2024 6:33 AM CDT) [facility] WBC 5.2 3.8 - 9.9 K/cumm Hgb 8.2(L) 13.0 - 17.5 g/dL [facility] Hct 28.6(L) 38.9 - 50.3 % [facility] Plt 173 150 - 400 K/cumm [facility] MPV 9.6 9.1 - 12.[address] [facility] RBC 3.51(L) 4.30 - 5.80 M/cumm [facility] MCV 81.5 81.3 - 96.[address] [facility] MCH 23.4(L) 27.1 - 33.[address] [facility] MCHC 28.7(L) 32.3 - 35.7 g/dL [facility] RDW CV 16.8(H) 11.1 - 14.9 % [facility] RDW SD 49.4(H) 35.7 - 48.[address] [facility] NRBC abs 0.00 0.00 - 0.01 K/cumm [facility] Blood 09/03/2024 6:33 AM CDT 09/03/2024 7:32 AM CDT Milton Mclean MD LAB BLOOD ORDERABLES Final Result Performing Organization Address [facility]/ZIP Co de Phone Number [facility] [address] Department [place] [address] * (ABNORMAL) Comprehensive metabolic panel (09/03/2024 6:33 AM CDT) [facility] Sodium 139 135 - 145 mmol/L Potassium, pl 3.5 3.3 - 4.9 mmol/L [facility] Chloride 107 97 - 110 mmol/L [facility] CO2 21(L) 22 - 32 mmol/L [facility] Anion gap 11 2 - 15 mmol/L [facility] BUN 13 6 - 25 mg/dL [facility] Creatinine 0.77(L) 0.80 - 1.30 mg/dL [facility] Glucose 92 70 - 199 mg/dL [facility] Comment: Interpretive Data Fasting glucose >/= 126 [...] 2022. Calcium 7.9(L) 8.5 - 10.3 mg/dL [facility] Bilirubin, total 0.6 0.1 - 1.2 mg/dL [facility] Protein, pl 6.0(L) 6.5 - 8.5 g/dL [facility] Albumin 2.4(L) 3.5 - 5.0 g/dL [facility] Alk phos 149(H) 40 - 130 Units/L [facility] ALT 23 7 - 55 Units/L [facility] AST 43 10 - 50 Units/L [facility] Blood 09/03/2024 6:33 AM CDT 09/03/2024 7:32 AM CDT us Kyrie Tucker MD LAB BLOOD ORDERABLES Final Re sult [facility] [address] Department [place] [address] * US RUQ (09/02/2024 5:26 PM CDT) [...] appropriate directional flow. Electronically signed by: Jeremy dEwards M.D. Diana K[facility]N [facility] US PROCEDURES Tiffany l Result * (ABNORMAL) Troponin T high-sensitivity 6-hour (09/02/2024 4:20 PM CDT) Trop T hs 72(H) <=22 ng/L Comment: Interpretive Data For further hscTnT resources including the diagnostic algorithm and an aid in interpretation, copy and paste this link: https://nrl.testcatPeer5.org/show/hsTrop Current Interpretive Data last revised 2020. Trop T hs delta 3 ng/L [facility] Trop T hs interp Insignificant [facility] Blood 09/02/2024 4:20 PM CDT 09/02/2024 4:29 PM CDT Kyrie Tucker MD LAB BLOOD ORDERABLES Final Re sult Performing Organization Address [facility] Co de Phone Number [facility] [address] [facility] [place] [address] * (ABNORMAL) Troponin T high-sensitivity 4-hour (09/02/2024 2:29 PM CDT) Trop T hs 71(H) <=22 ng/L Comment: Interpretive Data For further hscTnT resources including the diagnostic algorithm and an aid in interpretation, copy and paste this link: https://nrl.FOCUS Trainr.org/show/hsTrop Current Interpretive Data last revised 2020. Trop T hs delta 2 ng/L [facility] Trop T hs interp Insignificant [facility] Blood 09/02/2024 2:29 PM CDT 09/02/2024 2:29 PM CDT Kyrie Tucker MD LAB BLOOD ORDERABLES Final Re sult Performing Organization Address City/[facility]/ZIP Co de Phone Number [facility] [address] [facility] [place] [address] * (ABNORMAL) Troponin T high-sensitivity 2-hour (09/02/2024 11:08 AM CDT) Trop T hs 70(H) <=22 ng/L Comment: Interpretive Data For further hscTnT resources including the diagnostic algorithm and an aid in interpretation, copy and paste this link: https://nrl.testcatPeer5.org/show/hsTrop Current Interpretive Data last revised 2020. Trop T hs delta See Comment ng/L [facility] Comment:Inappropriate collec tion time to report a delta. Trop T hs pct delta See Comment % [facility] Comment:Inappropriate collec tion time to report a delta. Trop T hs interp See Comment [facility] Comment:Inappropriate collec tion time to report a delta. Blood 09/02/2024 11:0 8 AM CDT 09/02/2024 11:19 AM CDT Kyrie Tucker MD LAB BLOOD ORDERABLES Final Re sult Performing Organization Address City/[facility]/ZIP Co de Phone Number [facility] [address] [employer] [place] [address] * Blood culture Blood (09/02/2024 11:08 AM CDT) Report Final Report: No growth Blood 09/02/2024 11:0 8 AM CDT 09/02/2024 11:16 AM CDT Narrative [facility] - 09/07/2024 1:00 PM CDT [...] organism identification may be performed using the [employer] Blood Culture Identification panel. This assay detects microbial DNA in a blood culture broth. This assay has been cleared by the [place] Food and Drug Administration and its performance characteristics have been verified by the [facility]. Interpretive data was last revised on December 10, 2022. Kyrie Tukcer MD LAB MICROBIOLOGY - GENERAL OR DERABLES Final Result Performing Organization Address City/[facility]/ZIP Co de Phone Number [facility] [address] Department of [place], [place] [id number] [phone] * Phosphorus (09/02/2024 9:38 AM CDT) Pathologist [facility] Phosphorus, pl 2.5 2.3 - 4.5 mg/dL Blood 09/02/2024 9:38 AM CDT 09/02/2024 10:27 AM CDT Kyrie Tucker MD LAB BLOOD ORDERABLES Final Re sult Performing Organization Address [facility] Co de Phone Number [facility] [address] [facility] [place] [address] * Magnesium (09/02/2024 9:38 AM CDT) Pathologist [facility] Magnesium 1.9 1.4 - 2.5 mg/dL Blood 09/02/2024 9:38 AM CDT 09/02/2024 10:27 AM CDT Kyrie Tucker MD LAB BLOOD ORDERABLES Final Re sult Performing Organization Address [facility] de Phone Number [facility] [address] [facility] [employer] [place] [phone] * (ABNORMAL) Troponin T high-sensitivity series (baseline, 2hr, 4hr, 6hr) (09/02/2024 9:38 AM CDT) Pathologist [facility] Trop T hs 69(H) <=22 ng/L Comment: Interpretive Data For further hscTnT resources including the diagnostic algorithm and an aid in interpretation, copy and paste this link: https://nrl.testcatalog.org/show/hsTrop Current Interpretive Data last revised 2020. Blood 09/02/2024 9:38 AM CDT 09/02/2024 10:27 AM CDT Kyrie Tucker MD LAB BLOOD ORDERABLES Final Re sult Performing Organization Address [facility] Co de Phone Number [facility] [address] [place] [address] * Sepsis Lactate w/ Reflex (09/02/2024 9:38 AM CDT) Sepsis Lactate 1.3 0.7 - 2.0 mmol/L Blood 09/02/2024 9:38 AM CDT 09/02/2024 10:23 AM CDT Kyrie Tucker MD LAB BLOOD ORDERABLES Final Re sult Performing Organization Address [facility]/ZIP Co de Phone Number [facility] [address] [place] [address] * Blood culture Blood (09/02/2024 9:38 AM CDT) Report Final Report: No growth Blood 09/02/2024 9:38 AM CDT 09/02/2024 10:22 AM CDT Narrative [facility] - 09/07/2024 1:00 PM CDT Collection->Peripheral Interpretive [...] organism identification may be performed using the [employer] Blood Culture Identification panel. This assay detects microbial DNA in a blood culture broth. This assay has been cleared by the [place] Food and Drug Administration and its performance characteristics have been verified by the [facility]. Interpretive data was last revised on December 10, 2022. Kyrie Tucker MD LAB MICROBIOLOGY - GENERAL OR DERABLES Final Result [facility] [address] Department [place] [address] * ECG 12 lead (09/02/2024 8:21 AM CDT) 09/02/2024 8:21 AM CDT Narrative [facility] - 09/02/2024 2:31 PM CDT Vent Rate: 92 bpm RR Interval: 650 msec MD Interval: 154 msec QRS Duration: 151 msec QT Interval: 406 msec QTC Interval: 456 msec P-R-T [place]: 37 - 267 - 106 degrees IMPRESSION: ELECTRONIC VENTRICULAR PACEMAKER ABNORMAL RHYTHM ECG NO PRIOR TRACING Electronically Signed By: Mynor Arnett MD [facility] us Kyrie Tucker MD ECG ORDERABLES Final Result [facility] * eGFR (09/02/2024 6:11 AM CDT) [...] MD LAB BLOOD ORDERABLES Final Re sult [facility] [address] Department [place] [address] * Differential, auto (09/02/2024 6:11 AM CDT) Neutrophil abs 4.1 1.5 - 6.5 K/cumm Imm gran abs 0.1 0.0 - 0.1 K/cumm [facility] Lymphocyte abs 0.9 0.8 - 3.3 K/cumm [facility] Monocyte abs 0.5 0.2 - 0.8 K/cumm [facility] Eosinophil abs 0.3 0.0 - 0.5 K/cumm [facility] Basophil abs 0.1 0.0 - 0.1 K/cumm [facility] Neutrophil pct 70.0 % [facility] Comment: Interpretive Data Percent cell count reference ranges are not reported, since discordance with absolute values may lead to misinterpretation of CBC data. Current Interpretive Data was last revised on 2018. Imm gran pct 0.9 % [facility] Comment: Interpretive Data Percent cell count reference ranges are not reported, since discordance with absolute values may lead to misinterpretation of CBC data. Current Interpretive Data was last revised on 2018. Lymphocyte pct 15.2 % [facility] Comment: Interpretive Data Percent cell count reference ranges are not reported, since discordance with absolute values may lead to misinterpretation of CBC data. Current Interpretive Data was last revised on 2018. Monocyte pct 8.3 % [facility] Comment: Interpretive Data Percent cell count reference ranges are not reported, since discordance with absolute values may lead to misinterpretation of CBC data. Current Interpretive Data was last revised on 2018. Eosinophil pct 4.7 % [facility] Comment: Interpretive Data Percent cell count reference ranges are not reported, since discordance with absolute values may lead to misinterpretation of CBC data. Current Interpretive Data was last revised on 2018. Basophil pct 0.9 % [facility] Comment: Interpretive Data Percent cell count reference ranges are not reported, since discordance with absolute values may lead to misinterpretation of CBC data. Current Interpretive Data was last revised on 2018. Blood 09/02/2024 6:11 AM CDT 09/02/2024 6:52 AM CDT us Jose Enriquez MD LAB BLOOD ORDERABLES Final Re sult Performing Organization Address City/[facility] Co de Phone Number [facility] [address] Department [place] [address] * Phosphorus (09/02/2024 6:11 AM CDT) Phosphorus, pl 2.3 2.3 - 4.5 mg/dL Blood 09/02/2024 6:11 AM CDT 09/02/2024 6:51 AM CDT Jose Enriquez MD LAB BLOOD ORDERABLES Final Re sult Performing Organization Address [facility] Co de Phone Number [facility] [address] Department [place] [address] * (ABNORMAL) Bilirubin, direct (09/02/2024 6:11 AM CDT) Bilirubin, direct 0.4(H) 0.1 - 0.3 mg/dL Blood 09/02/2024 6:11 AM CDT 09/02/2024 6:51 AM CDT Jose Enriquez MD LAB BLOOD ORDERABLES Final Re sult Performing Organization Address City/[facility] Co de Phone Number [facility] [address] Department of [employer] [place], [place] [id number] * (ABNORMAL) Comprehensive metabolic panel (09/02/2024 6:11 AM CDT) Sodium 140 135 - 145 mmol/L Potassium, pl 3.5 3.3 - 4.9 mmol/L [facility] Chloride 106 97 - 110 mmol/L [facility] CO2 21(L) 22 - 32 mmol/L [facility] Anion gap 13 2 - 15 mmol/L [facility] BUN 14 6 - 25 mg/dL [facility] Creatinine 0.74(L) 0.80 - 1.30 mg/dL [facility] Glucose 100 70 - 199 mg/dL [facility] Comment: Interpretive Data Fasting glucose >/= 126 [...] 2022. Calcium 7.7(L) 8.5 - 10.3 mg/dL [facility] Bilirubin, total 0.7 0.1 - 1.2 mg/dL [facility] Protein, pl 6.1(L) 6.5 - 8.5 g/dL [facility] Albumin 2.7(L) 3.5 - 5.0 g/dL [facility] Alk phos 146(H) 40 - 130 Units/L [facility] ALT 23 7 - 55 Units/L [facility] AST 38 10 - 50 Units/L [facility] Blood 09/02/2024 6:11 AM CDT 09/02/2024 6:51 AM CDT us Jose Enriquez MD LAB BLOOD ORDERABLES Final Re sult [facility] [address] Department [place] [address] * (ABNORMAL) CBC with auto differential (09/02/2024 6:11 AM CDT) [facility] WBC 5.8 3.8 - 9.9 K/cumm Hgb 7.9(L) 13.0 - 17.5 g/dL [facility] Hct 27.3(L) 38.9 - 50.3 % [facility] Plt 186 150 - 400 K/cumm [facility] MPV 9.8 9.1 - 12.[address] [facility] RBC 3.35(L) 4.30 - 5.80 M/cumm [facility] MCV 81.5 81.3 - 96.[address] [facility] MCH 23.6(L) 27.1 - 33.[address] [facility] MCHC 28.9(L) 32.3 - 35.7 g/dL [facility] RDW CV 16.8(H) 11.1 - 14.9 % [facility] RDW SD 49.3(H) 35.7 - 48.[address] [facility] NRBC abs 0.00 0.00 - 0.01 K/cumm [facility] Blood 09/02/2024 6:11 AM CDT 09/02/2024 6:52 AM CDT Milton Mclean MD LAB BLOOD ORDERABLES Final Result [facility] [address] Department [place] [address] * eGFR (09/01/2024 9:13 PM CDT) [facility] eGFR >90 >=60 mL/min/1. 73 m2 [...] ORDERABLES Final Re sult Performing Organization Address [facility] Co de Phone Number [facility] [address] Department [place] [place] [address] * (ABNORMAL) Phosphorus (09/01/2024 9:13 PM CDT) Phosphorus, pl 2.0(L) 2.3 - 4.5 mg/dL Blood 09/01/2024 9:13 PM CDT 09/01/2024 9:29 PM CDT Jose Enriquez MD LAB BLOOD ORDERABLES Final Re sult Performing Organization Address [facility] de Phone Number [facility] [address] Department [place] [place] [address] * (ABNORMAL) Bilirubin, direct (09/01/2024 9:13 PM CDT) Bilirubin, direct 0.5(H) 0.1 - 0.3 mg/dL Blood 09/01/2024 9:13 PM CDT 09/01/2024 9:29 PM CDT us Jose Enriquez MD LAB BLOOD ORDERABLES Final Re sult [facility] [address] Department [place] [address] * (ABNORMAL) Comprehensive metabolic panel (09/01/2024 9:13 PM CDT) Sodium 138 135 - 145 mmol/L Potassium, pl 3.5 3.3 - 4.9 mmol/L [facility] Chloride 105 97 - 110 mmol/L [facility] CO2 22 22 - 32 mmol/L [facility] Anion gap 11 2 - 15 mmol/L [facility] BUN 14 6 - 25 mg/dL [facility] Creatinine 0.76(L) 0.80 - 1.30 mg/dL [facility] Glucose 110 70 - 199 mg/dL [facility] Comment: Interpretive Data Fasting glucose >/= 126 [...] 2022. Calcium 8.1(L) 8.5 - 10.3 mg/dL [facility] Bilirubin, total 0.8 0.1 - 1.2 mg/dL [facility] Protein, pl 6.6 6.5 - 8.5 g/dL [facility] Albumin 3.1(L) 3.5 - 5.0 g/dL [facility] Alk phos 148(H) 40 - 130 Units/L [facility] ALT 26 7 - 55 Units/L [facility] AST 40 10 - 50 Units/L [facility] Blood 09/01/2024 9:13 PM CDT 09/01/2024 9:29 PM CDT us Jose Enriquez MD LAB BLOOD ORDERABLES Final Re sult [facility] [address] Department [place] [address] documented in this encounter Visit Diagnoses Diagnosis Acute cholecystitis- Primary Acute cholecystitis Coronary artery disease due to calcified coronary lesion Coronary artery disease with history of myocardial infarction without history of CABG Biventricular cardiac pacemaker in situ Acute gangrenous appendicitis with perforation and peritonitis Acute appendicitis with generalized peritonitis S/P CABG x 3 Postsurgical aortocoronary bypass status Chronic systolic heart failure (CMS/HCC) ([facility]) Chronic systolic heart failure DM2 (diabetes mellitus, type 2) ([facility]) Coronary artery disease due to calcified coronary lesion Complete heart block (CMS/HCC) ([facility]) Atrioventricular block, complete Coronary artery disease with history of myocardial infarction without history of CABG Biventricular cardiac pacemaker in situ Acute cholecystitis documented in this encounter Admitting Diagnoses Diagnosis Acute cholecystitis documented in this encounter Administered Medications Inactive Administered Medications - up to 3 most recent administrations Medication Order MAR Action Action Date Dose Rate Site acetaminophen (TYLENOL) tablet 650 mg 650 mg, oral, Every 6 hours PRN, 1st line for pain, fever, fever greater than 38.3 C, Starting on 09/01/24 at 1842, Indications: Fever, PainIndications:Fever,Pain Given 09/04/2024 8:04 PM CDT 650 mg Given 09/03/2024 10:42 PM CDT 650 mg albuterol HFA (PROVENTIL HFA,VENTOLIN HFA,PROAIR HFA) 90 mcg/actuation inhaler 2 puff 2 puff, inhalation, Every 6 hours PRN (turkey egg gatherer), wheezing, Starting on 09/02/24 at 0628, Indications: Acute Asthma Attack, Bronchospasm PreventionIndications:Acute Asthma Attack,Bronchospasm Prevention Given 09/03/2024 8:25 PM CDT 2 puff s Given 09/02/2024 9:20 PM CDT 2 puffs amoxicillin-clavulanate (AUGMENTIN) 875-125 mg per tablet 875 mg of amoxicillin 875 mg of amoxicillin, oral, 2 times daily, First dose on Ann-Marie 09/07/24 at 0900, For 6 days, Indications: Abdominal/Pelvic InfectionIndications:Abdominal /Pelvic Infection Given 09/07/2024 8:30 AM CDT 875 mg of amoxicillin atorvastatin (LIPITOR) tablet 80 mg 80 mg, oral, Daily, First dose on 09/02/24 at 0900 Given 09/07/2024 8:30 AM CDT 80 mg Given 09/06/2024 8:22 AM CDT 80 mg Given 09/05/2024 8:41 AM CDT 80 mg bisacodyL (DULCOLAX) suppository 10 mg 10 mg, rectal, Daily PRN, constipation, if no results 24 hours after polyethylene glycol administration, Starting on 09/02/24 at 0626, Administer if not tolerating PO., Indications: constipationIndications:constipation bisacodyl EC (DULCOLAX EC) tablet 10 mg 10 mg, oral, Daily PRN, constipation, if no results 24 hours after polyethylene glycol administration, Starting on 09/02/24 at 0626, Administer if tolerating PO. Do not crush, chew, cut, dissolve, open or otherwise manipulate tablet/capsule., Indications: constipationIndications:constipation bumetanide (BUMEX) tablet 0.5 mg 0.5 mg, oral, Daily, First dose on 09/02/24 at 0900 Given 09/07/2024 8:30 AM CDT 0.5 mg Given 09/06/2024 8:22 AM CDT 0.5 mg Given 09/05/2024 8:41 AM CDT 0.5 mg Carrier Fluids for Secondary Infusion - 0.9% Sodium Chloride 30 mL, intravenous, As needed, For priming tubing and/or flushing, Starting on Wed09/01/24 at 1842, 0-250 ml/hr to flush line after IV infusions when no maintenance IV ordered. Infuse 30mL at the same rate as the secondary infusion. Run as primary IV, not intended for KVO. carvediloL (COREG) tablet 3.125 mg 3.125 mg, oral, 2 times daily with meals (bkfst, dinner), First dose on 09/02/24 at 0800 Given 09/07/2024 8:30 AM CDT 3.125 mg Given 09/06/2024 5:10 PM CDT 3.125 mg Given 09/06/2024 8:22 AM CDT 3.[address] (CYMBALTA) extended release capsule 60 mg 60 mg, oral, Every morning, First dose on Wed09/02/24 at 0900, Capsule may be opened and contents mixed with applesauce or apple juice ONLY. Do not crush or chew capsule, Indications: Diabetic Peripheral NeuropathyIndications:Diabetic Peripheral Neuropathy Given 09/07/2024 8:30 AM CDT 60 mg Given 09/06/2024 8:22 AM CDT 60 mg Given 09/05/2024 10:07 AM CDT 60 mg enoxaparin (LOVENOX) syringe 40 mg 40 mg, subcutaneous, Daily (for enoxaparin), First dose on Wed09/05/24 at 2100, Indications: VTE ProphylaxisIndications:VTE Prophylaxis Given 09/06/2024 9:27 PM CDT 40 mg Left Lower Abdomen Given 09/05/2024 9:00 PM CDT 40 mg Le ft Lower Abdomen HYDROcodone-acetaminophen (NORCO) 5-325 mg per tablet 1 tablet 1 tablet, oral, Every 4 hours PRN, 2nd line for pain, Starting on Wed09/01/24 at 2118, Indications: PainIndications:Pain Given 09/07/2024 2:03 PM CDT 1 tablet Given 09/07/2024 8:30 AM CDT 1 tablet Given 09/07/2024 2:11 AM CDT 1 tablet HYDROmorphone (PF) (DILAUDID) injection 0.2 mg 0.2 mg, intravenous, Administer over 2 Minutes, Every 6 hours PRN, other, as needed for severe pain. Please hold for SBP < 110 or worsening SOB or sleepiness, Starting on Wed09/01/24 at 2107 Given 09/05/2024 4:53 PM CDT 0.2 mg Given 09/05/2024 7:12 AM CDT 0.2 mg Given 09/04/2024 7:55 PM CDT 0.2 mg indomethacin (INDOCIN) 50 mg suppository As needed, Starting on Wed09/05/24 at 1437, Intra-Op Given 09/05/2024 2:37 PM CDT 100 mg isosorbide mononitrate ER (IMDUR) extended release tablet 15 mg 15 mg, oral, Daily, First dose on 09/02/24 at 0900, Tablets that are scored may be split, but do not crush, chew, dissolve, open or otherwise manipulate tablet/capsule. Given 09/07/2024 8:30 AM CDT 15 mg Given 09/06/2024 8:22 AM CDT 15 mg Given 09/05/2024 8:41 AM CDT 15 mg ondansetron (ZOFRAN) injection 4 mg 4 mg, intravenous, Administer over 2 Minutes, Every 6 hours PRN, nausea, vomiting, if not tolerating PO, Starting on Wed09/01/24 at 1842, Indications: Nausea and VomitingIndications:Nausea and Vomiting ondansetron ODT (ZOFRAN-ODT) disintegrating tablet 4 mg 4 mg, oral, Every 6 hours PRN, nausea, vomiting, Starting on Wed09/01/24 at 1842, Indications: Nausea and VomitingIndications:Nausea and Vomiting pantoprazole DR (PROTONIX) extended release tablet 40 mg 40 mg, oral, Daily, First dose on 09/02/24 at 0900, Do not crush, chew, cut, dissolve, open or otherwise manipulate tablet/capsule., Indications: Stress Ulcer ProphylaxisIndications:Stress Ulcer Prophylaxis Given 09/07/2024 8:30 AM CDT 40 mg Given 09/06/2024 8:22 AM CDT 40 mg Given 09/05/2024 8:41 AM CDT 40 mg pregabalin (LYRICA) capsule 100 mg 100 mg, oral, 2 times daily, First dose on 09/02/24 at 0900 Given 09/07/2024 8:30 AM CDT 100 mg Given 09/06/2024 9:27 PM CDT 100 mg Given 09/06/2024 8:22 AM CDT 100 mg sodium chloride 0.9% flush 0.5-20 mL 0.5-20 mL, intra-catheter, Every 8 hours scheduled, First dose on Wed09/01/24 at 2200, Flush volume based on line type and size. Given 09/07/2024 6:45 AM CDT 10 mL Given 09/06/2024 6:34 AM CDT 10 mL Given 09/04/2024 8:13 PM CDT 10 mL sodium chloride 0.9% flush 0.5-20 mL 0.5-20 mL, intra-catheter, As needed, line care, Starting on Wed09/01/24 at 1842, Flush volume based on line type and size. Flush before and after each use. sodium chloride 0.9% flush 0.5-20 mL 0.5-20 mL, intra-catheter, Every 8 hours scheduled, First dose on 09/02/24 at 0700, Flush volume based on line type and size. Given 09/07/2024 6:45 AM CDT 10 mL Given 09/06/2024 9:27 PM CDT 10 mL Given 09/06/2024 12:08 PM CDT 10 mL sodium chloride 0.9% flush 0.5-20 mL 0.5-20 mL, intra-catheter, As needed, line care, Starting on 09/02/24 at 0625, Flush volume based on line type and size. Flush before and after each use. Given 09/03/2024 1:38 AM CDT 10 mL documented in this encounter Discontinued Medications Medication Sig Discontinue Reason Start Date End Da te acetaminophen (TYLENOL) 325 mg tabletIndications:Pain Take 2 tablets (650 mg total) by mouth every 6 (six) hours as needed for fever 08/11/2024 09/01/2024 dextrose 15 gram/32 mL gel in packetIndications:hypog lycemic disorder Take 32 mL (15 g total) by mouth every 15 (fifteen) minutes as needed (blood glucose less than 70 mg/dL) 08/11/2024 09/01/2024 insulin glargine (TOUJEO MAX) 300 unit/mL (3 mL) pen for injection Inject under the skin 11/18/2023 09/01/2024 insulin lispro (HumaLOG) 100 unit/mL pen for injection Inject 1-5 units under the skin 3 (three) times a day with meals. Blood glucose mg/dL 150-199: 1 unit, 200-249: 2 units, 250-299: 3 units, 300-349: 4 units, 350 and greater: 5 units. Notify provider for blood glucose greater than 299 mg/dL. Refer to After Visit Summary for Sliding Scale Insulin Instructions. 08/11/2024 09/01/2024 metFORMIN XR (GLUCOPHAGE XR) 500 mg 24 hr tablet Take 2 tablets (1,000 mg total) by mouth 02/02/2024 09/01/2024 naproxen (ALEVE) 220 mg tablet Take 1 tablet (220 mg total) by mouth 07/02/2023 09/01/2024 pen needle, diabetic 32 gauge x 5/32 needle Use as directed 3 times a day. 08/11/2024 09/01/2024 semaglutide (OZEMPIC) 1 mg/dose (4 mg/3 mL) pen injector injection Inject under the skin 05/01/2024 024 documented as of this encounter Active and Recently Administered Medications Times are shown in CDT. Scheduled Medication Order 09/05/2024 09/06/2024 09/07/2024 amoxicillin-clavulanat e (AUGMENTIN) 875-125 mg per tablet 875 mg of amoxicillin 875 mg of amoxicillin, oral, 2 times daily, First dose on Ann-Marie 09/07/24 at 0900, For 6 days, Indications: Abdominal/Pelvic Infection 0830 (Given - Provider: Cathi Reyes, NAVIN) aspirin enteric coated tablet 81 mg 81 mg, oral, Daily, First dose on 09/02/24 at 0900, Do not crush, chew, cut, dissolve, open or otherwise manipulate tablet/capsule., Indications: CAD 0900 (Dose Auto Held) 0900 (Dose Auto Held) 0900 (Dose Auto Held)0900 (Unheld by Provider - Provider: Giovanny Garcia MD) atorvastatin (LIPITOR) tablet 80 mg 80 mg, oral, Daily, First dose on 09/02/24 at 0900 0841 (Given - Provider: Veronica Moreno RN)1340 (JAN Hold - Provider: Automatic Transfer Provider - Reason: Patient not available)1639 (MAR Unhold - Provider: Automatic Transfer Provider) 0822 (Given - Provider: Veronica Moreno RN) 0830 (Given - Provider: Cathi Reyes, NAVIN) bumetanide (BUMEX) tablet 0.5 mg 0.5 mg, oral, Daily, First dose on 09/02/24 at 0900 0841 (Given - Provider: Veronica Moreno RN)1340 (JAN Hold - Provider: Automatic Transfer Provider - Reason: Patient not available)1639 ([facility] Unhold - Provider: Automatic Transfer Provider) 0822 (Given - Provider: Veronica Moreno RN) 0830 (Given - Provider: Cathi Reyes, NAVIN) carvediloL (COREG) tablet 3.125 mg 3.125 mg, oral, 2 times daily with meals (bkfst, dinner), First dose on Wed09/02/24 at 0800 0841 (Given - Provider: Veronica Moerno RN)1340 (JAN Hold - Provider: Automatic Transfer Provider - Reason: Patient not available)1639 ([facility] Unhold - Provider: Automatic Transfer Provider)1659 (Given - Provider: Veronica Moreno RN) 0822 (Given - Provider: Veronica Moreno RN)1710 (Given - Provider: Veronica Moreno RN) 0830 (Given - Provider: Cathi Reyes, NAVIN) DULoxetine DR (CYMBALTA) extended release capsule 60 mg 60 mg, oral, Every morning, First dose on 09/02/24 at 0900, Capsule may be opened and contents mixed with applesauce or apple juice ONLY. Do not crush or chew capsule, Indications: Diabetic Peripheral Neuropathy 0905 (Unheld by Provider - Provider: Giovanny Garcia MD)1007 (Given - Provider: Veronica Moreno RN)1340 ([facility] Hold - Provider: Automatic Transfer Provider - Reason: Patient not available)1639 ([facility] Unhold - Provider: Automatic Transfer Provider) 0822 (Given - Provider: Veronica Moreno RN) 0830 (Given - Provider: Cathi Reyes RN) enoxaparin (LOVENOX) syringe 40 mg 40 mg, subcutaneous, Daily (for enoxaparin), First dose on Wed09/05/24 at 2100, Indications: VTE Prophylaxis 1340 (JAN Hold - Provider: Automatic Transfer Provider - Reason: Patient not available)1639 ([facility] Unhold - Provider: Automatic Transfer Provider)2100 (Given - Provider: Marleni Burgess, NAVIN) 2127 (Given - Provider: Marleni Burgess RN) isosorbide mononitrate ER (IMDUR) extended release tablet 15 mg 15 mg, oral, Daily, First dose on 09/02/24 at 0900, Tablets that are scored may be split, but do not crush, chew, dissolve, open or otherwise manipulate tablet/capsule. 0841 (Given - Provider: Veronica Moreno RN)1340 (JAN Hold - Provider: Automatic Transfer Provider - Reason: Patient not available)1639 (JAN Unhold - Provider: Automatic Transfer Provider) 0822 (Given - Provider: Veronica Moreno RN) 0830 (Given - Provider: Cathi Reyes, NAVIN) pantoprazole DR (PROTONIX) extended release tablet 40 mg 40 mg, oral, Daily, First dose on 09/02/24 at 0900, Do not crush, chew, cut, dissolve, open or otherwise manipulate tablet/capsule., Indications: Stress Ulcer Prophylaxis 0841 (Given - Provider: Veronica Moreno RN)1340 (JAN Hold - Provider: Automatic Transfer Provider - Reason: Patient not available)1639 (JAN Unhold - Provider: Automatic Transfer Provider) 0822 (Given - Provider: Veronica Moreno RN) 0830 (Given - Provider: Cathi Reyes, NAVIN) piperacillin-tazobacta m (ZOSYN) 3.375 g in sodium chloride 0.9% 100 mL IVPB (COMPLETED) 3.375 g, intravenous, at 200 mL/hr, Administer over 30 Minutes, Every 6 hours scheduled, First dose on 09/02/24 at 0730, For 20 doses, Mini-Bag Plus bag, Indications: Abdominal/Pelvic Infection 0516 (New Bag - Provider: Suzie Fitch, NAVIN)0545 (Stopped - Provider: Suzie Fitch, RN)1302 (New Bag - Provider: Veronica Moreno RN)1340 (JAN Hold - Provider: Automatic Transfer Provider - Reason: Patient not available)1639 (JAN Unhold - Provider: Automatic Transfer Provider)1659 (New Bag - Provider: Veronica Moreno RN) 0005 (New Bag - Provider: Marleni Burgess, NAVIN)0630 (New Bag - Provider: Marleni Burgess, NAVIN)1208 (New Bag - Provider: Veronica Moreno RN)1711 (New Bag - Provider: Veronica Moreno RN) pregabalin (LYRICA) capsule 100 mg 100 mg, oral, 2 times daily, First dose on 09/02/24 at 0900 0841 (Given - Provider: Veronica Moreno RN)1340 (JAN Hold - Provider: Automatic Transfer Provider - Reason: Patient not available)163 (MAR Unhold - Provider: Automatic Transfer Provider)2058 (Given - Provider: Marleni Burgess RN) 08 (Given - Provider: Veronica Moreno RN)212 (Given - Provider: Marleni Burgess RN) 0830 (Given - Provider: Cathi Reyes, NAVIN) sodium chloride 0.9% flush 0.5-20 mL 0.5-20 mL, intra-catheter, Every 8 hours scheduled, First dose on Wed09/01/24 at 2200, Flush volume based on line type and size. 0616 (Not Given - Provider: Suzie Fitch RN - Reason: IV Infusing)1303 (Not Given - Provider: Veronica Moreno RN - Reason: Other)1340 (JAN Hold - Provider: Automatic Transfer Provider - Reason: Patient not available)163 (JAN Unhold - Provider: Automatic Transfer Provider)210 (Not Given - Provider: Marleni Burgess RN - Reason: Other - Comment: duplicate) 0634 (Given - Provider: Marleni Burgess RN)1208 (Not Given - Provider: Veronica Moreno RN - Reason: Other - Comment: Duplicate order)212 (Not Given - Provider: Marleni Burgess RN - Reason: Other - Comment: duplicate) 0645 (Given - Provider: Marleni Burgess RN)1452 (Not Given - Provider: Cathi Reyes RN - Reason: Loss of IV access - Comment: IV removed, pt discharged) sodium chloride 0.9% flush 0.5-20 mL 0.5-20 mL, intra-catheter, Every 8 hours scheduled, First dose on 09/02/24 at 0700, Flush volume based on line type and size. 0616 (Not Given - Provider: Suzie Fitch RN - Reason: IV Infusing)1303 (Given - Provider: Veronica Moreno, NAVIN)1340 ([facility] Hold - Provider: Automatic Transfer Provider - Reason: Patient not available)1639 ([facility] Unhold - Provider: Automatic Transfer Provider)2101 (Given - Provider: Marleni Burgess, NAVIN) 0630 (Given - Provider: Marleni Burgess RN)1208 (Given - Provider: Veronica Moreno RN)2127 (Given - Provider: Marleni Burgess RN) 0645 (Given - Provider: Marleni Burgess RN)1452 (Not Given - Provider: Cathi Reyes RN - Reason: Loss of IV access - Comment: IV removed, pt discharged) PRN Medication Order 09/05/2024 09/06/2024 09/07/2024 acetaminophen (TYLENOL) tablet 650 mg 650 mg, oral, Every 6 hours PRN, 1st line for pain, fever, fever greater than 38.3 C, Starting on 09/01/24 at 1842, Indications: Fever, Pain 1340 ([facility] Hold - Provider: Automatic Transfer Provider - Reason: Patient not available)163 ([facility] Unhold - Provider: Automatic Transfer Provider) albuterol HFA (PROVENTIL HFA,VENTOLIN HFA,PROAIR HFA) 90 mcg/actuation inhaler 2 puff 2 puff, inhalation, Every 6 hours PRN (turkey egg gatherer), wheezing, Starting on 09/02/24 at 0628, Indications: Acute Asthma Attack, Bronchospasm Prevention 1340 ([facility] Hold - Provider: Automatic Transfer Provider - Reason: Patient not available)163 ([facility] Unhold - Provider: Automatic Transfer Provider) bisacodyL (DULCOLAX) suppository 10 mg(Linked Group 1) 10 mg, rectal, Daily PRN, constipation, if no results 24 hours after polyethylene glycol administration, Starting on 09/02/24 at 0626, Administer if not tolerating PO., Indications: constipation 1340 ([facility] Hold - Provider: Automatic Transfer Provider - Reason: Patient not available)163 ([facility] Unhold - Provider: Automatic Transfer Provider) bisacodyl EC (DULCOLAX EC) tablet 10 mg(Linked Group 1) 10 mg, oral, Daily PRN, constipation, if no results 24 hours after polyethylene glycol administration, Starting on 09/02/24 at 0626, Administer if tolerating PO. Do not crush, chew, cut, dissolve, open or otherwise manipulate tablet/capsule., Indications: constipation 1340 ([facility] Hold - Provider: Automatic Transfer Provider - Reason: Patient not available)163 ([facility] Unhold - Provider: Automatic Transfer Provider) Carrier Fluids for Secondary Infusion - 0.9% Sodium Chloride 30 mL, intravenous, As needed, For priming tubing and/or flushing, Starting on Wed09/01/24 at 1842, 0-250 ml/hr to flush line after IV infusions when no maintenance IV ordered. Infuse 30mL at the same rate as the secondary infusion. Run as primary IV, not intended for KVO. 1340 ([facility] Hold - Provider: Automatic Transfer Provider - Reason: Patient not available)163 ([facility] Unhold - Provider: Automatic Transfer Provider) Carrier Fluids for Secondary Infusion - 0.9% Sodium Chloride 30 mL, intravenous, As needed, For priming tubing and/or flushing, Starting on 09/02/24 at 0625, 0-250 ml/hr to flush line after IV infusions when no maintenance IV ordered. Infuse 30mL at the same rate as the secondary infusion. Run as primary IV, not intended for KVO. 1340 ([facility] Hold - Provider: Automatic Transfer Provider - Reason: Patient not available)163 ([facility] [facility] Unhold - Provider: Automatic Transfer Provider) HYDROcodone-acetaminophen (NORCO) 5-325 mg per tablet 1 tablet 1 tablet, oral, Every 4 hours PRN, 2nd line for pain, Starting on Wed09/01/24 at 2118, Indications: Pain 1043 (Given - Provider: Veronica Moreno, NAVIN)1340 ([facility] Hold - Provider: Automatic Transfer Provider - Reason: Patient not available)163 ([facility] Unhold - Provider: Automatic Transfer Provider) 0955 (Given - Provider: Veronica Moreno RN) 0211 (Given - Provider: Marleni Burgess RN - Comment: rt abdomen incision site)0830 (Given - Provider: Cathi Reyes RN)1403 (Given - Provider: Cathi Reyes, RN) HYDROmorphone (PF) (DILAUDID) injection 0.2 mg 0.2 mg, intravenous, Administer over 2 Minutes, Every 6 hours PRN, other, as needed for severe pain. Please hold for SBP < 110 or worsening SOB or sleepiness, Starting on Wed09/01/24 at 2107 0712 (Given - Provider: Suzie Fitch, RN)1043 (Canceled Entry - Provider: Veronica Moreno, NAVIN)1340 ([facility] Hold - Provider: Automatic Transfer Provider - Reason: Patient not available)1639 ([facility] Unhold - Provider: Automatic Transfer Provider)1653 (Given - Provider: Veronica Moreno, NAVIN) indomethacin (INDOCIN) 50 mg suppository (CANCELED) As needed, Starting on Wed09/05/24 at 1437, Intra-Op 1437 (Given - Provider: Yolande Jacobs, NAVIN) ioversoL (OPTIRAY 350) injection 0.01-500 mL (COMPLETED) 0.01-500 mL, intraductal, Once in imaging, contrast, Starting on Wed09/05/24 at 1421, For 1 dose 1435 (Contrast Given - Provider: Park Tom, RT - Comment: per ) ondansetron (ZOFRAN) injection 4 mg(Linked Group 2) 4 mg, intravenous, Administer over 2 Minutes, Every 6 hours PRN, nausea, vomiting, if not tolerating PO, Starting on Wed09/01/24 at 1842, Indications: Nausea and Vomiting 1340 ([facility] Hold - Provider: Automatic Transfer Provider - Reason: Patient not available)1639 ([facility] Unhold - Provider: Automatic Transfer Provider) ondansetron ODT (ZOFRAN-ODT) disintegrating tablet 4 mg(Linked Group 2) 4 mg, oral, Every 6 hours PRN, nausea, vomiting, Starting on Wed09/01/24 at 1842, Indications: Nausea and Vomiting 1340 (JAN Hold - Provider: Automatic Transfer Provider - Reason: Patient not available)1639 ([facility] Unhold - Provider: Automatic Transfer Provider) polyethylene glycol (MIRALAX) packet 17 g 17 g, oral, Daily PRN, constipation, Starting on Wed09/02/24 at 0626, Indications: constipation 1340 ([facility] Hold - Provider: Automatic Transfer Provider - Reason: Patient not available)1639 ([facility] Unhold - Provider: Automatic Transfer Provider) sodium chloride 0.9% flush 0.5-20 mL 0.5-20 mL, intra-catheter, As needed, line care, Starting on Wed09/01/24 at 1842, Flush volume based on line type and size. Flush before and after each use. 1340 ([facility] Hold - Provider: Automatic Transfer Provider - Reason: Patient not available)1639 ([facility] Unhold - Provider: Automatic Transfer Provider) sodium chloride 0.9% flush 0.5-20 mL 0.5-20 mL, intra-catheter, As needed, line care, Starting on 09/02/24 at 0625, Flush volume based on line type and size. Flush before and after each use. 1340 ([facility] Hold - Provider: Automatic Transfer Provider - Reason: Patient not available)1639 ([facility] Unhold - Provider: Automatic Transfer Provider) Linked Groups Order Group 1: bisacodyl EC (DULCOLAX EC) tablet 10 mgJump to med 10 mg, oral, Daily PRN, constipation, if no results 24 hours after polyethylene glycol administration, Starting on 09/02/24 at 0626, Administer if tolerating PO. Do not crush, chew, cut, dissolve, open or otherwise manipulate tablet/capsule., Indications: constipation Or bisacodyL (DULCOLAX) suppository 10 mgJump to med 10 mg, rectal, Daily PRN, constipation, if no results 24 hours after polyethylene glycol administration, Starting on 09/02/24 at 0626, Administer if not tolerating PO., Indications: constipation Group 2: ondansetron ODT (ZOFRAN-ODT) disintegrating tablet 4 mgJump to med 4 mg, oral, Every 6 hours PRN, nausea, vomiting, Starting on Wed09/01/24 at 1842, Indications: Nausea and Vomiting Or ondansetron (ZOFRAN) injection 4 mgJump to med 4 mg, intravenous, Administer over 2 Minutes, Every 6 hours PRN, nausea, vomiting, if not tolerating PO, Starting on Wed09/01/24 at 1842, Indications: Nausea and Vomiting documented in this encounter Orders Medications Ordered That Manuel ht Not Have Been Administered Count Last Ordered Date First Ordered Date amoxicillin-clavulanate (AUG MENTIN) 875-125 mg per tablet 875 mg of amoxicillin 1 09/06/2024 enoxaparin (LOVENOX) syringe 40 mg 1 2023 ioversoL (OPTIRAY 350) injec tion 0.01-500 mL 1 09/05/2024 acetaminophen (TYLENOL) tablet 1,000 mg 2 1 09/03/2024 albuterol 2.5 mg /3 mL (0.08 3 %) nebulizer solution 2.5 mg 1 09/04/2024 BUPivacaine (MARCAINE) 0.25 % (2.5 mg/mL) preservative free injection 1 09/04/2024 dextrose (D10W) 10% bolus 250 mL 2 09/04/20 24 09/03/2024 dextrose (GLUTOSE) 40 % gel 15 g 1 09/04/20 diphenhydrAMINE (BENADRYL) 5 0 mg/mL injection 12.5 mg 1 09/04/2024 fentaNYL (SUBLIMAZE) preserv ative free injection 25 mcg 1 09/04/2024 gabapentin (NEURONTIN) capsule 100 mg 2 09/03/2024 glucagon injection 1 mg 1 09/04/2024 haloperidol (HALDOL) injection 1 mg 1 09/04 HYDROmorphone (DILAUDID) injection 0.2 mg 1 09/04/2024 HYDROmorphone (DILAUDID) injection 0.4 mg 1 09/04/2024 insulin lispro (HumaLOG, ADM ELOG) 100 unit/mL injection 0-5 Units 1 09/04/2024 labetaloL (NORMODYNE,TRANDAT E) injection 5 mg 1 09/04/2024 meperidine (DEMEROL) preserv ative free injection 12.5 mg 1 09/04/2024 naloxone (NARCAN) 0.4 mg/mL injection 0.04-0.4 mg 1 09/04/2024 ondansetron (ZOFRAN) injection 4 mg 2 09/0409/01/2024 oxyCODONE (ROXICODONE) tablet 5 mg 1 2023 racepinephrine (ASTHMANEFRIN ) 2.25 % nebulizer solution 0.5 mL 1 09/04/2024 sodium chloride 0.9% irrigation 1 Lactated Ringer's (LR) infusion 2 4 09/02/2024 lidocaine (PF) (XYLOCAINE) 1 0 mg/mL (1 %) preservative free injection 2-10 mg 1 09/03/2024 sodium chloride 0.9% flush 0.5-20 mL 5 08/0909/01/2024 albuterol HFA (PROVENTIL HFA ,VENTOLIN HFA,PROAIR HFA) 90 mcg/actuation inhaler 2 puff 2 09/02/2024 aspirin enteric coated tablet 81 mg 1 09/02 atorvastatin (LIPITOR) tablet 80 mg 1 09/02 bisacodyL (DULCOLAX) suppository 10 mg 1 bisacodyl EC (DULCOLAX EC) tablet 10 mg 1 1 bumetanide (BUMEX) tablet 0.5 mg 1 09/02/20 Carrier Fluids for Secondary Infusion - 0.9% Sodium Chloride 2 09/02/2024 09/01/2024 carvediloL (COREG) tablet 3.125 mg [address] (CYMBALTA) ext ended release capsule 60 mg 1 09/02/2024 heparin 5,000 unit/mL inject ion 5,000 Units 1 09/02/2024 isosorbide mononitrate ER (I MDUR) extended release tablet 15 mg 1 09/02/[address] (PROTONIX) e xtended release tablet 40 mg 1 09/02/2024 piperacillin-tazobactam (ZOS YN) 3.375 g in sodium chloride 0.9% 100 mL IVPB 1 09/02/2024 polyethylene glycol (MIRALAX) packet 17 g 1 09/02/2024 pregabalin (LYRICA) capsule 100 mg 1 2023 acetaminophen (TYLENOL) tablet 650 mg 1 HYDROcodone-acetaminophen (N ORCO) 5-325 mg per tablet 1 tablet 1 09/01/2024 HYDROmorphone (PF) (DILAUDID ) injection 0.2 mg 1 09/01/2024 ondansetron ODT (ZOFRAN-ODT) disintegrating tablet 4 mg 1 09/01/2024 sodium chloride 0.9% infusion 1 09/01/2024 Lab Orders Without Results Count Last Ordered D ate First Ordered Date POCT GLUCOSE DEVICE 11 09/06/2024 09/03/20 Diet Count Last Ordered Date First Orde red Date ADULT DISCHARGE DIET 1 09/07/2024 Nursing Count Last Ordered Date First Orde red Date DISCHARGE ACTIVITY 4 09/07/2024 DISCHARGE CALL PROVIDER 6 09/07/2024 DISCHARGE DRESSING 3 09/07/2024 DISCHARGE INSTRUCTIONS 1 09/07/2024 FOLLOW UP WITH ESTABLISHED PROVIDER 2 09/07 NURSING COMMUNICATION 1 09/04/2024 OBTAIN MEDICAL RECORDS 1 09/02/2024 WEIGH PATIENT 2 09/02/2024 09/01/2024 Consult Count Last Ordered Date First Orde red Date IP CONSULT TO CARDIOLOGY 1 09/02/2024 Admission Count Last Ordered Date First Orde red Date ADMIT TO INPATIENT 1 09/01/2024 Discharge Count Last Ordered Date First Orde red Date DISCHARGE PATIENT 1 09/07/2024 CORE MEASURES Count Last Ordered Date First Ord ered Date REASON FOR NO VTE PROPHYLAXI S - HOSPITAL ADMISSION - MEDICATIONS 1 09/01/2024 Case Request Count Last Ordered Date First Orde red Date CASE REQUEST GI 1 09/04/2024 documented in this encounter Care Teams Direct Selling Counselor Relationship Specialty Start Date End Date Juan Retana MD [id number] [facility] [address] [place], [place] [id number] PCP - General Internal Medicine [facility]05[facility] [address] [place] [address] Referring Physician Cardiology 07/05/24 Johnathan Mckee MD [address] [facility] [id number] [place] [address] Consulting Physician General Surgery 08/11/24 documented as of this encounter
--- OUTSIDE RECORDS SUMMARY | 2024-11-17 04:25 | XMS_ITS | Encounter Summary ---
Author Organization [facility] Address [address] [place] [address] Phone Care Team Providers Care Biological Science Technician Name Role Phone Juan Retana MD Primary Care Provider [phone] [facility], Alverto Gutierrez Unavailable Johnathan Mckee MD Unavailable [phone] Praveen Garduno MD Unavailable [phone] Reason for Visit * Reason Onset Date Comments GI Preprocedure 10/04/2024 Encounter Details Date Type Department Care Team (Late st Contact Info) Description 10/04/2024 Telephone [facility]ology [address] [place] [address] Medical Office Building [address], [address] [place] [address] Holli Palma LPN GI Preprocedure Social History Tobacco Use Types Packs/Day Years Used Date Smoking Tobacco: Former Cigarettes 1.5 19.6 1 961 - 06/11/1980 Passive Smoke Exposure: Past Smokeless Tobacco: Never Alcohol Use Standard Drinks/Week Comments Yes 0 (1 standard drink = 0.6 oz pur e alcohol) rare - maybe 1 beer/month [facility] Utilities Answer Date Recorded In the past 12 months has e electric, gas, oil, or water company threatened [...] often do you attend chur ch or yazidism services? Never 09/05/2024 Do you belong to any clubs o r organizations such as orthodoxy groups, unions, fraternal or athletic groups, or [...] time in the past 12 m [facility], were you homeless or living in a long term (including now)? No 09/05/2024 Personal Safety Answer Date Recorded Have you ever been in or are you currently in a harmful physical or emotional relationship or is someone making you feel afraid or unsafe? Denies 09/04/2024 Sex and Gender Information Value Date Recorded Sex Assigned at Not on file Legal Sex Male 1:06 PM PRE PRESS MANAGER Gender Identity Not on file Sexual Orientation Not on file documented as of this encounter Miscellaneous Notes * Telephone Encounter - Holli Palma LPN - 11/13/2024 11:52 AM PRE PRESS MANAGER Called and spoke with son Jeremy states pt is still at [facility] for rehab therapy this nurse called and spoke with pts nurse Juliana who states pt is currently at the ED at [facility] as pt has developed fluid buildup in the RLE inner thigh and knee area pt was sent to ED last for same issue pts RLE was aspirated and pt was sent back to [facility] today pt had additional fluid build up that was causing a significant amount of pain. Juliana is unsure at this time if pt will be admitted or sent back after aspiration like last week. This nurse will F/U tomorrow. PRESS MANAGER * Telephone Encounter - Holli Palma LPN - 10/25/2024 11:09 AM PRE PRESS MANAGER Called pt no answer VM full called aaron Cordero states pt is at [facility] for rehab therapy as pt has had several falls w/the last fall causing a concussion Gil states pt should be out of rehab in early Nov this nurse will call back 2nd week of Nov if pt is still in rehab will coordinate procedure scheduling with them. Number to [facility] PRESS MANAGER * Telephone Encounter - Holli Palma LPN - 10/16/2024 11:18 AM PRE PRESS MANAGER LVM for patient to c/b and discuss scheduling. 1st letter mailed PRESS MANAGER * Telephone Encounter - Holli Palma LPN - 10/04/2024 12:01 PM PRE PRESS MANAGER LVM for patient to c/b and discuss scheduling PRESS MANAGER * Telephone Encounter - Holli Palma LPN - 10/04/2024 11:47 AM PRE PRESS MANAGER ----- Message from Nurse Va Gil sent at 09/06/2024 12:54 PM CDT ----- Regarding: ERCP Lang due 12.06.2024 Repeat ERCP in 3 months to remove stent. PRESS MANAGER documented in this encounter Plan of Treatment Not on file documented as of this encounter Visit Diagnoses Not on filedocumented in this encounter Care Teams Biological Science Technician Relationship Specialty Start Date End Date Juan Retana MD [address] [facility] [address] [place] [address] PCP - General Internal Medicine [facility]05[facility] [place] [address] Referring Physician Cardiology 07/05/24 Johnathan Mckee MD [address] [facility] [id number] [place] [address] Consulting Physician General Surgery 08/11/24 Praveen Garduno MD [address] [facility] [address] [place] [address] Consulting Physician General Surgery 09/07/24 documented as of this encounter
--- OUTSIDE RECORDS SUMMARY | 2024-11-17 04:25 | XMS_ITS | Referral Summary ---
Author Organization [facility] Address [address] [place] [address] Care Team Providers Care Field Property Loss Specialist Name Role Phone Juan Retana MD Primary Care Provider [phone] [facility], Alverto Gutierrez Unavailable Johnathan Mckee MD Unavailable [phone] Praveen Garduno MD Unavailable [phone] Encounters Date Type Department Care Team Description 11/15/2024 Telephone [facility] Cardiology [address] 8th [place] [address] [place] [address] Lucy Meyer MD 10/26/2024 Telephone [facility] [address] [place] [address] Praveena Garza EP-C Cardiac Rehab Navigator Follow Up Call 10/04/2024 Telephone [facility] Gastroenterology [address] [place] [address] Holli Palma LPN GI Preprocedure 09/01/2024 6:29 PM CDT - 09/07/2024 3:05 PM CDT Hospital Encounter [facility] [address] [place] [address] Jose Enriquez MD Gallion, Sabina Saakova, MD Sripada, Sarada, MD Li, Alex MD Acute cholecystitis (Primary Dx); Coronary artery disease due to calcified coronary lesion; Coronary artery disease with history of myocardial infarction without history of CABG; Biventricular cardiac pacemaker in situ; Acute gangrenous appendicitis with perforation and peritonitis; S/P CABG x 3; Chronic systolic heart failure (CMS/HCC) ([facility]) Discharge Disposition: Discharge to home or self care 09/05/2024 2:27 PM CDT Anesthesia Event [facility] [address] [place] [phone] Mehul Rodriguez MD Winfrey, Tonya M., CRNA 09/05/2024 2:45 PM CDT - 09/05/2024 3:30 PM CDT Surgery [facility] [address] [place] [phone] Milton Mclean MD ENDO ENDOSCOPIC RETROGRADE CHOLANGIOPANCREATOGRAPHY WITH STENT PLACEMENT [GI509] 09/04/2024 1:03 PM CDT - 09/04/2024 2:48 PM CDT Surgery [facility] Operating Room [address] [place] [phone] Praveen Garduno MD LAPAROSCOPIC CHOLECYSTECTOMY 09/04/2024 1:14 PM CDT Anesthesia Event [facility] Operating Room [address] [place] [phone] Gorge Jones MD Malik, Asad S., MD 08/31/2024 Orders Only [address] [address] Jose Enriquez MD 08/18/2024 Telephone [facility] 8th [place] [address] [place] [phone] Lucy Meyer MD 08/18/2024 Telephone [facility]iology [facility] 8th [place] [address] [place] [address] Lucy Meyer MD from Last 3 Months Allergies Active Allergy Reactions Criticality Noted Date [...] tablet (80 mg total) by mouth daily 4 08/12/20 25 Active pregabalin (LYRICA) 100 mg capsule Take 1 capsule (100 mg total) by mouth 2 (two) times a day 4 02/08/20 25 Active clopidogreL (PLAVIX) 75 mg tablet Take 1 tablet (75 mg total) by mouth daily 4 08/12/20 25 Active isosorbide mononitrate ER (IMDUR) 30 mg 24 hr tablet Take 0.5 tablets (15 mg total) by mouth daily 4 08/12/20 25 Active magnesium oxide (MAG-OX) 400 mg (241.3 mg elemental magnesium) tablet Take 2 tablets (800 mg total) by mouth 2 (two) times a day 4 08/11/20 25 Active bumetanide (BUMEX) 1 mg tablet Take 0.5 tablets (0.5 mg total) by mouth 4 Active carvediloL (COREG) 3.125 mg tablet Take 1 tablet (3.125 mg total) by mouth 2 (two) times a day with meals 4 08/17/20 Active HYDROcodone-acet aminophen (NORCO) 5-325 mg per tabletIndication s:Pain Take 1 tablet by mouth every 6 (six) hours as needed for pain 15 tablet 4 Active Active Problems Problem Noted Date Diagnosed Date Biventricular cardiac pacemaker in situ 09/02/20 Acute cholecystitis 09/01/2024 DM2 (diabetes mellitus, type [...] in ICU, weaning dose today again(25 mg 08/10) Assessment & Plan (08/05/2024 2:24 PM CDT): [...] Lesion of eyelid of both eyes 06/11/2020 Social History Tobacco Use Types Packs/Day Years Used Date Smoking Tobacco: Former Cigarettes 1.5 19.6 1 961 - 06/11/1980 Passive Smoke Exposure: Past Smokeless Tobacco: Never Tobacco Cessation:Counseling Given: Not Answered Alcohol Use Standard Drinks/Week Comments Yes 0 (1 standard drink = 0.6 oz pur e alcohol) rare - maybe 1 beer/month [facility] Utilities Answer Date Recorded In the past 12 months has [employer], gas, oil, or water [employer] threatened to shut off services in your [...] often do you attend chur ch or scientologist services? Never 09/05/2024 Do you belong to any clubs o r organizations such as roman catholic groups, unions, fraternal or athletic groups, or [...] any time in the past 12 m [facility], were you homeless or living in a jail (including now)? No 09/05/2024 Personal Safety Answer Date Recorded Have you ever been in or are you currently in a harmful physical or emotional relationship or is someone making you feel afraid or unsafe? 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 Gender Identity Not on file Sexual Orientation [...] 09/04/2024 12:17 PM CDT Plan of Treatment Not on file Medical Devices Implanted Type Area Seed Cleaning Machine Operator Device Identifier Shelf Expiration Date Model / Serial / Lot Medtronic Inc Cardiac [place] Hf 2 Chamber Df4 Inline Cnctr Is4 [id number] - [id number] - [id number] Implanted:Qty: 1 on 08/04/2024 by Lucy Meyer MD at [facility] ICD Medtronic Inc 12/22/2025 [id number] / [id number] / Medtronic Inc Sprint Quattro Secure 62cm Tripolar Screw In Extendable [id number] - [id number] - [id number] Implanted:Qty: 1 on 08/04/2024 by Lucy Meyer MD at [facility] Lead [employer] Inc 04/24/2026 [id number] / [id number] / Medtronic Inc Attain Stability Quad Mri Surescan Active Fixation Lv Lead 88cm [id number] - [id number] - [id number] Implanted:Qty: 1 on 08/04/2024 by Lucy Meyer MD at [facility] Lead Med[employer]onic Inc 04/11/2026 [id number] / [id number] / Medtronic Inc Capsurefix Novus 6.2fr 2mm 52cm Bipolar Screw In Implantable Latex Free 5076-52 - [id number] - [id number] Implanted:Qty: 1 on 08/04/2024 by Lucy Meyer MD at [facility] Lead [employer]onic Inc 05/22/2026 5076-52 / [id number] / Medtronic Inc Tyrx Absorbable Antibacterial Envelope-Large 3.3x2.9in [id number] - [id number] Implanted:Qty: 1 on 08/04/2024 by Lucy Meyer MD at [facility] Other - see comments Med[employer] Inc 05/25/2025 [id number] / / [id number] Description:Tyrx envelope [employer] Vinnie 10fr 7cm Biliary Stent [id number] - [id number] Implanted:Qty: 1 on 09/05/2024 by Milton Mclean MD at [facility] Stent N/A: Bile Duct [employer] Vinnie 07/24/2026 [id number] / / [id number] [employer] Suárez Flexi-Stent 5fr 3cm Small Pigtail Flexible .035in Stent 6551 - [id number] Implanted:Qty: 1 on 09/05/2024 by Milton Mclean MD at [facility] Stent N/A: Pancreas [employer] 05/08/2029 6551 / / [id number] Ar[employer] Device Closure Fibertape Sternal [place]clage Blunt Needle Ar-7289 - [id number] Implanted:Qty: 2 on 07/24/2024 by Johnathan Mckee MD at [facility] Sternum [employer] [id number] 05/07/2029 AR-7 289 / / [id number] [employer] Device Closure Fibertape Sternal Cerclage Cutting Needle Ar-7288 - [id number] Implanted:Qty: 1 on 07/24/2024 by Tala Amador MD at [facility] Sternum [employer] [id number] 05/07/2029 AR-7288 / / [id number] [employer]a [employer] Plate Bone Low Profile 6 Hole H Shape Sternum Ti 115.102.06 - [id number] Implanted:Qty: 2 on 07/24/2024 by Tala Amador MD at [facility] Sternum [employer] 115.102. 06 / / [employer] Plate Bone Low Profile 6 Hole O Shape Sternum Ti 115.104.06 - [id number] Implanted:Qty: 1 on 07/24/2024 by Tala Amador MD at [facility] Sternum [employer] 115.104. 06 / / [employer] Screw Bone Slf Drl Full Thread Locking 3.5x14mm Ti 100.035.14 - [id number] Implanted:Qty: 12 on 07/24/2024 by Tala Amador MD at [facility] Sternum [employer] 100.035. 14 / / [employer] Screw Bone Slf Drl Full Thread Locking 3.5x16mm Ti 100.035.16 - [id number] Implanted:Qty: 6 on 07/24/2024 by Tala Amador MD at [facility] Sternum [employer] 100.035. 16 / / [email or web address] [place] Distal Marker Radiology Stainless Steel Sterile Am-D - [id number] Implanted:Qty: 2 on 07/24/2024 by Tala Amador MD at [facility] [employer] [id number] 06/08/2027 AM-D / / [id number] Explanted Type Area Seed Cleaning Machine Operator Device Identifier Shelf Expiration Date Model / Serial / Lot [employer] Inc Device Closure Fibertape Sternal Cerclage Cutting Needle Ar-7288 - [id number] Explanted:Qty: 1 on 07/24/2024 by Tala Amador MD at [facility] Sternum [employer] [id number] 05/07/2029 AR-7288 / / [id number] Ar[employer] Inc Device Closure Fibertape Sternal Cerclage Blunt Needle Ar-7289 - [id number] Explanted:Qty: 1 on 07/24/2024 by Tala Amador MD at [facility] Stern [employer] [id number] 05/07/2029 AR-7289 / / [id number] Procedures Procedure Name Priority Date/Time Associated Diagnosis [...] Acute gangrenous appendicitis with perforation and peritonitis AK AN PROCEDURE PLACEHOLDER Routine 09/04/2024 1:45 PM CDT AK AN ELECTIVE ENDOTRACHEAL AIRWAY Routine 09/04/2024 1:45 PM CDT TRANSFUSE RED BLOOD CELLS Timed 09/04/2024 1:42 PM CDT AK AN PROCEDURE PLACEHOLDER Routine 09/04/2024 1:27 PM [...] Results * eGFR (09/07/2024 6:20 AM CDT) [facility] eGFR 71 >=60 mL/min/1. 73 m2 Comment: [...] Mclean MD LAB BLOOD ORDERABLES Final Result [facility] [address] [place] [address] * Differential, auto (09/07/2024 6:20 AM CDT) Neutrophil abs 5.4 1.5 - 6.5 K/cumm Imm gran abs 0.1 0.0 - 0.1 K/cumm [facility] Lymphocyte abs 0.9 0.8 - 3.3 K/cumm [facility] Monocyte abs 0.4 0.2 - 0.8 K/cumm [facility] Eosinophil abs 0.0 0.0 - 0.5 K/cumm [facility] Basophil abs 0.0 0.0 - 0.1 K/cumm [facility] Neutrophil pct 78.4 % [facility] Comment: Interpretive Data Percent cell count reference ranges are not reported, since discordance with absolute values may lead to misinterpretation of CBC data. Current Interpretive Data was last revised on 2018. Imm gran pct 2.0 % [facility] Comment: Interpretive Data Percent cell count reference ranges are not reported, since discordance with absolute values may lead to misinterpretation of CBC data. Current Interpretive Data was last revised on 2018. Lymphocyte pct 12.8 % [facility] Comment: Interpretive Data Percent cell count reference ranges are not reported, since discordance with absolute values may lead to misinterpretation of CBC data. Current Interpretive Data was last revised on 2018. Monocyte pct 6.1 % [facility] Comment: Interpretive Data Percent cell count reference ranges are not reported, since discordance with absolute values may lead to misinterpretation of CBC data. Current Interpretive Data was last revised on 2018. Eosinophil pct 0.6 % [facility] Comment: Interpretive Data Percent cell count reference ranges are not reported, since discordance with absolute values may lead to misinterpretation of CBC data. Current Interpretive Data was last revised on 2018. Basophil pct 0.1 % [facility] Comment: Interpretive Data Percent cell count reference ranges are not reported, since discordance with absolute values may lead to misinterpretation of CBC data. Current Interpretive Data was last revised on 2018. Blood 09/07/2024 6:20 AM CDT 09/07/2024 6:38 AM CDT us Milton Mclean MD LAB BLOOD ORDERABLES Final Result [facility] [address] [place] [address] * (ABNORMAL) CBC with auto differential (09/07/2024 6:20 AM CDT) WBC 6.9 3.8 - 9.9 K/cumm Hgb 8.6(L) 13.0 - 17.5 g/dL [facility] Hct 29.5(L) 38.9 - 50.3 % [facility] Plt 173 150 - 400 K/cumm [facility] MPV 9.2 9.1 - 12.3 fL [facility] RBC 3.62(L) 4.30 - 5.80 M/cumm [facility] MCV 81.5 81.3 - 96.4 fL [facility] MCH 23.8(L) 27.1 - 33.3 pg [facility] MCHC 29.2(L) 32.3 - 35.7 g/dL [facility] RDW CV 17.2(H) 11.1 - 14.9 % [facility] RDW SD 50.4(H) 35.7 - 48.1 fL [facility] NRBC abs 0.02(H) 0.00 - 0.01 K/cumm [facility] Blood 09/07/2024 6:20 AM CDT 09/07/2024 6:38 AM CDT Milton Mclean MD LAB BLOOD ORDERABLES Final Result Performing Organization Address City/[facility]/ZIP Co de Phone Number [facility] [address] [facility] [place] [address] * Phosphorus (09/07/2024 6:20 AM CDT) Pathologist [facility] Phosphorus, pl 3.2 2.3 - 4.5 mg/dL Blood 09/07/2024 6:20 AM CDT 09/07/2024 6:24 AM CDT Milton Mclean MD LAB BLOOD ORDERABLES Final Result Performing Organization Address [facility] Co de Phone Number [facility] [address] [facility] [place] [address] * Bilirubin, direct (09/07/2024 6:20 AM CDT) [facility] Bilirubin, direct 0.2 0.1 - 0.3 mg/dL Blood 09/07/2024 6:20 AM CDT 09/07/2024 6:24 AM CDT Milton Mclean MD LAB BLOOD ORDERABLES Final Result Performing Organization Address City/[facility] Co de Phone Number [facility] [address] [facility] [place] [address] * (ABNORMAL) Comprehensive metabolic panel (09/07/2024 6:20 AM CDT) Pathologist [facility] Sodium 135 135 - 145 mmol/L Potassium, pl 4.1 3.3 - 4.9 mmol/L [facility] Chloride 104 97 - 110 mmol/L [facility] CO2 19(L) 22 - 32 mmol/L [facility] Anion gap 12 2 - 15 mmol/L [facility] BUN 24 6 - 25 mg/dL [facility] Creatinine 1.11 0.80 - 1.30 mg/dL [facility] Glucose 111 70 - 199 mg/dL [facility] Comment: Interpretive Data Fasting glucose >/= 126 [...] 2022. Calcium 7.6(L) 8.5 - 10.3 mg/dL [facility] Bilirubin, total 0.3 0.1 - 1.2 mg/dL [facility] Protein, pl 6.0(L) 6.5 - 8.5 g/dL [facility] Albumin 2.4(L) 3.5 - 5.0 g/dL [facility] Alk phos 156(H) 40 - 130 Units/L [facility] ALT 20 7 - 55 Units/L [facility] AST 38 10 - 50 Units/L [facility] Blood 09/07/2024 6:20 AM CDT 09/07/2024 6:24 AM CDT Milton Mclean MD LAB BLOOD ORDERABLES Final Result [facility] [address] [place] [address] * eGFR (09/06/2024 12:32 PM CDT) [facility] eGFR 72 >=60 mL/min/1. 73 m2 Comment: [...] MD LAB BLOOD ORDERABLES Final Res ult [facility] [address] [place] [address] * (ABNORMAL) Differential, auto (09/06/2024 12:32 PM CDT) Neutrophil abs 4.9 1.5 - 6.5 K/cumm Imm gran abs 0.1 0.0 - 0.1 K/cumm [facility] Lymphocyte abs 0.6(L) 0.8 - 3.3 K/cumm [facility] Monocyte abs 0.4 0.2 - 0.8 K/cumm [facility] Eosinophil abs 0.0 0.0 - 0.5 K/cumm [facility] Basophil abs 0.0 0.0 - 0.1 K/cumm [facility] Neutrophil pct 81.5 % [facility] Comment: Interpretive Data Percent cell count reference ranges are not reported, since discordance with absolute values may lead to misinterpretation of CBC data. Current Interpretive Data was last revised on 2018. Imm gran pct 2.2 % [facility] Comment: Interpretive Data Percent cell count reference ranges are not reported, since discordance with absolute values may lead to misinterpretation of CBC data. Current Interpretive Data was last revised on 2018. Lymphocyte pct 9.9 % [facility] Comment: Interpretive Data Percent cell count reference ranges are not reported, since discordance with absolute values may lead to misinterpretation of CBC data. Current Interpretive Data was last revised on 2018. Monocyte pct 6.2 % [facility] Comment: Interpretive Data Percent cell count reference ranges are not reported, since discordance with absolute values may lead to misinterpretation of CBC data. Current Interpretive Data was last revised on 2018. Eosinophil pct 0.0 % [facility] Comment: Interpretive Data Percent cell count reference ranges are not reported, since discordance with absolute values may lead to misinterpretation of CBC data. Current Interpretive Data was last revised on 2018. Basophil pct 0.2 % [facility] Comment: Interpretive Data Percent cell count reference ranges are not reported, since discordance with absolute values may lead to misinterpretation of CBC data. Current Interpretive Data was last revised on 2018. Blood 09/06/2024 12:3 2 PM CDT 09/06/2024 12:43 PM CDT us Praveen Garduno MD LAB BLOOD ORDERABLES Final Res ult [facility] [address] [place] [address] * (ABNORMAL) CBC with auto differential (09/06/2024 12:32 PM CDT) WBC 6.0 3.8 - 9.9 K/cumm Hgb 7.7(L) 13.0 - 17.5 g/dL [facility] Hct 25.7(L) 38.9 - 50.3 % [facility] Plt 156 150 - 400 K/cumm [facility] MPV 8.6(L) 9.1 - 12.3 fL [facility] RBC 3.17(L) 4.30 - 5.80 M/cumm [facility] MCV 81.1(L) 81.3 - 96.4 fL [facility] MCH 24.3(L) 27.1 - 33.3 pg [facility] MCHC 30.0(L) 32.3 - 35.7 g/dL [facility] RDW CV 17.1(H) 11.1 - 14.9 % [facility] RDW SD 50.9(H) 35.7 - 48.1 fL [facility] NRBC abs 0.02(H) 0.00 - 0.01 K/cumm [facility] Blood 09/06/2024 12:3 2 PM CDT 09/06/2024 12:43 PM CDT Milton Mclean MD LAB BLOOD ORDERABLES Final Result Performing Organization Address [facility]/ZIP Co de Phone Number [facility] [address] Department [place] [address] * Phosphorus (09/06/2024 12:32 PM CDT) Phosphorus, pl 3.1 2.3 - 4.5 mg/dL Blood 09/06/2024 12:3 2 PM CDT 09/06/2024 12:43 PM CDT Praveen Garduno MD LAB BLOOD ORDERABLES Final Res ult [facility] [address] Department [place] [address] * Bilirubin, direct (09/06/2024 12:32 PM CDT) Bilirubin, direct 0.2 0.1 - 0.3 mg/dL Blood 09/06/2024 12:3 2 PM CDT 09/06/2024 12:43 PM CDT us Praveen Garduno MD LAB BLOOD ORDERABLES Final Res ult [facility] [address] [place] [address] * (ABNORMAL) Comprehensive metabolic panel (09/06/2024 12:32 PM CDT) Sodium 145 135 - 145 mmol/L Potassium, pl 3.6 3.3 - 4.9 mmol/L [facility] Chloride 107 97 - 110 mmol/L [facility] CO2 18(L) 22 - 32 mmol/L [facility] Anion gap 20(H) 2 - 15 mmol/L [facility] BUN 20 6 - 25 mg/dL [facility] Creatinine 1.09 0.80 - 1.30 mg/dL [facility] Glucose 123 70 - 199 mg/dL [facility] Comment: Interpretive Data Fasting glucose >/= 126 [...] 2022. Calcium 7.4(L) 8.5 - 10.3 mg/dL [facility] Bilirubin, total 0.3 0.1 - 1.2 mg/dL [facility] Protein, pl 6.2(L) 6.5 - 8.5 g/dL [facility] Albumin 2.7(L) 3.5 - 5.0 g/dL [facility] Alk phos 145(H) 40 - 130 Units/L [facility] ALT 21 7 - 55 Units/L [facility] AST 35 10 - 50 Units/L [facility] Blood 09/06/2024 12:3 2 PM CDT 09/06/2024 12:43 PM CDT Praveen Garduno MD LAB BLOOD ORDERABLES Final Res ult Performing Organization Address [facility] Co de Phone Number [facility] [address] [place] [address] * POCT glucose (09/06/2024 6:33 AM CDT) Glucose, POC 141 70 - 199 mg/dL Comment: For Glucose values <35 mg/dl when Hematocrit is >60 mg/dl,the test may not accurately detect significant hypoglycemia,and testing in the Laboratory should be considered if clinically indicated. Blood 09/06/2024 6:33 AM CDT 09/06/2024 6:33 AM CDT Giovanny Garcia MD LAB POCT ORDERABLES - DEVICE Fin al Result Performing Organization Address [facility] de Phone Number [facility] [address] [place] [address] * FL ERCP Biliary and Pancreatic (09/05/2024 2:57 PM CDT) Narrative [facility] - 09/05/2024 3:06 PM CDT The images from this study are not interpreted by Radiology. ??Please refer to the physician's procedure / OR operative note. Milton Mclean MD IMG FLUOROSCOPY PROCEDURES Final Result Performing Organization Address [facility] Co de Phone Number [facility] * ERCP (09/05/2024 2:20 PM CDT) Anatomical Region Laterality Modality Other Narrative Procedure Note Milton Mclean MD - 09/05/2024 2:20 PM CDT ENDOSCOPY LAB Patient Name: Abiel Walker Procedure Date: 09/05/2024 2:20 PM Admit Type: Inpatient Room: [facility] Date of : 1950 Instrument Name: [id number] Gender: Male Note Status: Finalized Procedure: ERCP Indications: Bile leak Providers: Milton Mclean M.D. Referring MD: Juan Connolly M.D. Medicines: Monitored Anesthesia Care, Indomethacin 100 mg AK Complications: No immediate complications. Estimated Blood Loss: [...] The patient tolerated the procedurewell. Findings: A fisher eel spear film of the abdomen was obtained. One [...] 1:02 PM CDT 09/05/2024 1:02 PM CDT Result [facility] Giovanny Garcia MD LAB POCT ORDERABLES - DEVICE Fin al Result Performing Organization Address [facility] de Phone Number [facility] [address] [place] [address] * POCT glucose (09/05/2024 8:41 AM CDT) Glucose, POC 142 70 - 199 mg/dL Comment: For Glucose values <35 mg/dl when Hematocrit is >60 mg/dl,the test may not accurately detect significant hypoglycemia,and testing in the Laboratory should be considered if clinically indicated. Blood 09/05/2024 8:41 AM CDT 09/05/2024 8:41 AM CDT Result [facility] Giovanny Garcia MD LAB POCT ORDERABLES - DEVICE Fin al Result Performing Organization Address [facility] Co de Phone Number [facility] [address] Department of Advanced [facility] Care [place], [place] [address] * (ABNORMAL) Differential, auto (09/05/2024 6:40 AM CDT) Neutrophil abs 6.0 1.5 - 6.5 K/cumm Imm gran abs 0.1 0.0 - 0.1 K/cumm [facility] Lymphocyte abs 0.5(L) 0.8 - 3.3 K/cumm [facility] Monocyte abs 0.3 0.2 - 0.8 K/cumm [facility] Eosinophil abs 0.0 0.0 - 0.5 K/cumm [facility] Basophil abs 0.0 0.0 - 0.1 K/cumm [facility] Neutrophil pct 85.1 % [facility] Comment: Interpretive Data Percent cell count reference ranges are not reported, since discordance with absolute values may lead to misinterpretation of CBC data. Current Interpretive Data was last revised on 2018. Imm gran pct 2.0 % [facility] Comment: Interpretive Data Percent cell count reference ranges are not reported, since discordance with absolute values may lead to misinterpretation of CBC data. Current Interpretive Data was last revised on 2018. Lymphocyte pct 7.6 % [facility] Comment: Interpretive Data Percent cell count reference ranges are not reported, since discordance with absolute values may lead to misinterpretation of CBC data. Current Interpretive Data was last revised on 2018. Monocyte pct 4.8 % [facility] Comment: Interpretive Data Percent cell count reference ranges are not reported, since discordance with absolute values may lead to misinterpretation of CBC data. Current Interpretive Data was last revised on 2018. Eosinophil pct 0.1 % [facility] Comment: Interpretive Data Percent cell count reference ranges are not reported, since discordance with absolute values may lead to misinterpretation of CBC data. Current Interpretive Data was last revised on 2018. Basophil pct 0.4 % [facility] Comment: Interpretive Data Percent cell count reference ranges are not reported, since discordance with absolute values may lead to misinterpretation of CBC data. Current Interpretive Data was last revised on 2018. Blood 09/05/2024 6:40 AM CDT 09/05/2024 6:40 AM CDT us Deanna Bangura MD LAB BLOOD ORDERABLES Final Res ult Performing Organization Address [facility]/ZIP Co de Phone Number [facility] [address] Department of [facility] [place], [place] [phone] * (ABNORMAL) CBC with auto differential (09/05/2024 6:40 AM CDT) [facility] WBC 7.1 3.8 - 9.9 K/cumm Hgb 10.0(L) 13.0 - 17.5 g/dL [facility] Hct 34.3(L) 38.9 - 50.3 % [facility] Plt 185 150 - 400 K/cumm [facility] MPV 9.4 9.1 - 12.3 fL [facility] RBC 4.24(L) 4.30 - 5.80 M/cumm [facility] MCV 80.9(L) 81.3 - 96.4 fL [facility] MCH 23.6(L) 27.1 - 33.3 pg [facility] MCHC 29.2(L) 32.3 - 35.7 g/dL [facility] RDW CV 16.9(H) 11.1 - 14.9 % [facility] RDW SD 49.4(H) 35.7 - 48.1 fL [facility] NRBC abs 0.00 0.00 - 0.01 K/cumm [facility] Blood 09/05/2024 6:40 AM CDT 09/05/2024 6:46 AM CDT Deanna Bangura MD LAB BLOOD ORDERABLES Final Res ult Performing Organization Address [facility]/ZIP Co de Phone Number [facility] [address] Department of Advanced [facility] Care [place], [place] [phone] * eGFR (09/05/2024 5:27 AM CDT) [facility] eGFR >90 >=60 mL/min/1. 73 m2 Comment: [...] ORDERABLES Final Re sult Performing Organization Address City/[facility]/ZIP Co de Phone Number [facility] [address] [employer] [place], [place] [phone] * Phosphorus (09/05/2024 5:27 AM CDT) [facility] Phosphorus, pl 4.4 2.3 - 4.5 mg/dL Blood 09/05/2024 5:27 AM CDT 09/05/2024 5:41 AM CDT us Jose Enriquez MD LAB BLOOD ORDERABLES Final Re sult [facility] [address] Department [place] [address] * Bilirubin, direct (09/05/2024 5:27 AM CDT) Bilirubin, direct 0.3 0.1 - 0.3 mg/dL Blood 09/05/2024 5:27 AM CDT 09/05/2024 5:41 AM CDT Jose Enriquez MD LAB BLOOD ORDERABLES Final Re sult [facility] [address] [place] [address] * (ABNORMAL) Comprehensive metabolic panel (09/05/2024 5:27 AM CDT) Pathologist [facility] Sodium 139 135 - 145 mmol/L Potassium, pl 4.3 3.3 - 4.9 mmol/L [facility] Chloride 105 97 - 110 mmol/L [facility] CO2 22 22 - 32 mmol/L [facility] Anion gap 12 2 - 15 mmol/L [facility] BUN 12 6 - 25 mg/dL [facility] Creatinine 0.83 0.80 - 1.30 mg/dL [facility] Glucose 139 70 - 199 mg/dL [facility] Comment: Interpretive Data Fasting glucose >/= 126 [...] 2022. Calcium 8.3(L) 8.5 - 10.3 mg/dL [facility] Bilirubin, total 0.5 0.1 - 1.2 mg/dL [facility] Protein, pl 6.8 6.5 - 8.5 g/dL [facility] Albumin 3.1(L) 3.5 - 5.0 g/dL [facility] Alk phos 175(H) 40 - 130 Units/L [facility] ALT 24 7 - 55 Units/L [facility] AST 42 10 - 50 Units/L [facility] Blood 09/05/2024 5:27 AM CDT 09/05/2024 5:41 AM CDT Jose Enriquez MD LAB BLOOD ORDERABLES Final Re sult Performing Organization Address [facility] Co de Phone Number [facility] [address] [place] [address] * POCT glucose (09/05/2024 4:29 AM CDT) [...] DEVICE F inal Result Performing Organization Address [facility] de Phone Number [facility] [address] [place] [address] * POCT glucose (09/04/2024 11:46 PM CDT) [...] DEVICE F inal Result Performing Organization Address [facility]/ZIP Co de Phone Number [facility] [address] [place] [address] * POCT glucose (09/04/2024 8:12 PM CDT) [...] DEVICE F inal Result Performing Organization Address [facility] Co de Phone Number [facility] [address] [place] [address] * POCT glucose (09/04/2024 3:33 PM CDT) [...] DEVICE F inal Result Performing Organization Address City/[facility] Co de Phone Number [facility] [address] [place] [address] * Aerobic and anaerobic culture and gram stain Bile Abdominal (09/04/2024 2:50 PM CDT) [facility] Direct Specimen Exam Stain: No organisms seen. No polymorphonuclear leukocytes seen. Report Final Report: No growth [facility] Bile (Abdominal) 09/04/2024 2:50 PM CDT 09/04/2024 3:18 PM CDT Narrative [facility] - 09/07/2024 2:00 PM CDT Bile Praveen Garduno MD LAB MICROBIOLOGY - GENERAL ORD ERABLES Final Result Performing Organization Address City/[facility]/ZIP Co de Phone Number [facility] [address] Department of Laboratories [place], [place] [phone] * Transfuse RBC (09/04/2024 2:32 PM CDT) Blood Gorge Jones MD BLOOD TRANSFUSION ORDERABLE S Edited Result - Final Performing Organization Address [facility]/ZIP Co de Phone Number [facility] [address] [place] [address] * Surgical pathology (09/04/2024 2:06 PM CDT) Tissue (Gallbladder) 09/04/2024 2:06 PM CDT Comment:Placed in Formalin a t end of Procedure. Narrative [facility] - 09/07/2024 4:40 PM CDT [place] [id number] [place], [place] ??[id number] Tele: ?? Radha Milner MD - Accountant Note to Patients: This report may contain [...] PATHOLOGY REPORT Patient Name: ??ABIEL WALKER Address: ??[address] [place] [address]64 Gender: ??M : ??1950 (Age: 74) Service: ??Surgery Location: ??[id number], ?? [facility] #: ??[id number] Patient Type: ??[facility] Accession #: ? [id number] Taken: ? 09/04/2024 Received ? 09/04/2024 Reported: [...] gallbladder. ??No mass lesion is grossly identified. Electrical Integrator sections are submitted as follows: ??A1 - Gallbladder including cystic duct margin. ??Additional sections, A2-A4 - Additional sections of gallbladder. ?? cu/09/06/2024 10:07 ? JAP,CUH ?? , LKB MICROSCOPIC DESCRIPTION: Microscopic examination supports the above captioned diagnosis. ??Epithelium is predominantly denuded and shows reactive epithelial atypia in a background of acute and chronic inflammation, necrosis, and fibrosis. ??Immunostain is employed with appropriate control for further evaluation. ??Pancytokeratin is negative for distinct infiltrative epithelial elements. ??No malignancy is evident. Clerical Data Follows A; [id number], [id number] REPORT IMAGES AND/OR SCANNED DOCUMENTS ONLY VIEWABLE IN PDF FORMAT The immunohistochemical test(s) cited in this report, if any, was developed and its performance characteristics determined by [facility] Pathology Department. ??It has not been cleared or approved by the U.S. Food and Drug Administration. ??The FDA has determined that such clearance or approval is not necessary. ??This test is used for clinical purposes. ??It should not be regarded as investigational or for research. ??[facility] is certified under the Clinical Laboratory [...] part or completely in the following laboratories: [facility], [address] [place] [address], [address] [place] [address]. Praveen Garduno MD LAB PATHOLOGY ORDERABLES Final Result Performing Organization Address City/State/[facility] Co de Phone Number [facility] Laboratory Receiving [address] [place] [address] * AK AN ELECTIVE ENDOTRACHEAL AIRWAY, AK AN PROCEDURE PLACEHOLDER (09/04/2024 1:45 PM CDT) Narrative Myesha Amador CRNA - 09/04/2024 1:45 PM CDT Myesha Amador CRNA ? 09/04/2024 ??1:45 PM Airway Patient location: OR Urgency: elective Indications for airway management: anesthesia Difficult airway: no Staff: Placed by: LOOPING INSPECTOR: Myesha Amador CRNA Emergent airway documentation: Risks [...] Jones MD ANESTHESIA ORDERABLES Final Result * AK AN PROCEDURE PLACEHOLDER (09/04/2024 1:27 PM CDT) [...] patient tolerated procedure well with no complications Gorge Jones MD ANESTHESIA ORDERABLES Final Result * POCT glucose (09/04/2024 12:37 PM CDT) [facility] Signature Glucose, POC 107 70 - 199 mg/dL Comment: For Glucose values <35 mg/dl when Hematocrit is >60 mg/dl,the test may not accurately detect significant hypoglycemia,and testing in the Laboratory should be considered if clinically indicated. Blood 09/04/2024 12:3 7 PM CDT 09/04/2024 12:37 PM CDT Deanna Bangura MD LAB POCT ORDERABLES - DEVICE F inal Result [facility] [address] Department [place] [address] * Prepare RBC: 1 Units (09/04/2024 12:34 PM CDT) [facility] Product code [id number] Unit Number [id number] [facility] Product Blood Type OPOS [facility] Dispense Status PRESUMED TRANSFUSED [facility] Blood 09/04/2024 12:3 4 PM CDT Narrative [facility] - 09/05/2024 10:15 AM CDT Specify Procedure:->Hold for procedure Are special requirements needed? (All products are leukoreduced and CMV- safe)- >No Date required:-[id number] LRRBC # of [id number] Reasons:-Pre-op Hgb <8 g/dL} Praveen Garduno MD BLOOD BANK PRODUCT ORDERABLES Final Result Performing Organization Address City/[facility]/ZIP Co de Phone Number [facility] [address] Department [place] [address] * POCT glucose (09/04/2024 7:52 AM CDT) [facility] Glucose, POC 107 70 - 199 mg/dL Comment: For Glucose values <35 mg/dl when Hematocrit is >60 mg/dl,the test may not accurately detect significant hypoglycemia,and testing in the Laboratory should be considered if clinically indicated. Blood 09/04/2024 7:52 AM CDT 09/04/2024 7:52 AM CDT Deanna Bangura MD LAB POCT ORDERABLES - DEVICE F inal Result [facility] [address] Department [place] [address] * eGFR (09/04/2024 5:29 AM CDT) [facility] eGFR >90 >=60 mL/min/1. 73 m2 Comment: [...] MD LAB BLOOD ORDERABLES Final Re sult [facility] [address] Department of Laboratories [place], [place] [phone] * Differential, auto (09/04/2024 5:29 AM CDT) Neutrophil abs 3.0 1.5 - 6.5 K/cumm Imm gran abs 0.1 0.0 - 0.1 K/cumm [facility] Lymphocyte abs 1.0 0.8 - 3.3 K/cumm [facility] Monocyte abs 0.6 0.2 - 0.8 K/cumm [facility] Eosinophil abs 0.2 0.0 - 0.5 K/cumm [facility] Basophil abs 0.1 0.0 - 0.1 K/cumm [facility] Neutrophil pct 61.1 % [facility] Comment: Interpretive Data Percent cell count reference ranges are not reported, since discordance with absolute values may lead to misinterpretation of CBC data. Current Interpretive Data was last revised on 2018. Imm gran pct 1.2 % [facility] Comment: Interpretive Data Percent cell count reference ranges are not reported, since discordance with absolute values may lead to misinterpretation of CBC data. Current Interpretive Data was last revised on 2018. Lymphocyte pct 20.5 % [facility] Comment: Interpretive Data Percent cell count reference ranges are not reported, since discordance with absolute values may lead to misinterpretation of CBC data. Current Interpretive Data was last revised on 2018. Monocyte pct 11.3 % [facility] Comment: Interpretive Data Percent cell count reference ranges are not reported, since discordance with absolute values may lead to misinterpretation of CBC data. Current Interpretive Data was last revised on 2018. Eosinophil pct 4.7 % [facility] Comment: Interpretive Data Percent cell count reference ranges are not reported, since discordance with absolute values may lead to misinterpretation of CBC data. Current Interpretive Data was last revised on 2018. Basophil pct 1.2 % [facility] Comment: Interpretive Data Percent cell count reference ranges are not reported, since discordance with absolute values may lead to misinterpretation of CBC data. Current Interpretive Data was last revised on 2018. Blood 09/04/2024 5:29 AM CDT 09/04/2024 5:39 AM CDT us Jose Enriquez MD LAB BLOOD ORDERABLES Final Re sult [facility] [address] [place] [address] * (ABNORMAL) CBC with auto differential (09/04/2024 5:29 AM CDT) WBC 4.9 3.8 - 9.9 K/cumm Hgb 7.6(L) 13.0 - 17.5 g/dL [facility] Hct 26.2(L) 38.9 - 50.3 % [facility] Plt 192 150 - 400 K/cumm [facility] MPV 9.3 9.1 - 12.3 fL [facility] RBC 3.29(L) 4.30 - 5.80 M/cumm [facility] MCV 79.6(L) 81.3 - 96.4 fL [facility] MCH 23.1(L) 27.1 - 33.3 pg [facility] MCHC 29.0(L) 32.3 - 35.7 g/dL [facility] RDW CV 16.7(H) 11.1 - 14.9 % [facility] RDW SD 47.9 35.7 - 48.1 fL [facility] NRBC abs 0.00 0.00 - 0.01 K/cumm [facility] Blood 09/04/2024 5:29 AM CDT 09/04/2024 5:39 AM CDT Milton Mclean MD LAB BLOOD ORDERABLES Final Result [facility] [address] [place] [address] * Type and screen (09/04/2024 5:29 AM CDT) ABO Rh O Positive Janell, indirect Negative [facility] Blood 09/04/2024 5:29 AM CDT 09/04/2024 5:39 AM CDT Narrative [facility] - 09/04/2024 6:16 AM CDT Has the patient had Daratumumab or Isatuximab in the past 6 months?->Unknown us Wiley Hernandez MD LAB BLOOD BANK TEST ORDERABLES Final Result [facility] [address] [place] [address] * Phosphorus (09/04/2024 5:29 AM CDT) Pathologist [facility] Phosphorus, pl 3.3 2.3 - 4.5 mg/dL Blood 09/04/2024 5:29 AM CDT 09/04/2024 5:39 AM CDT Jose Enriquez MD LAB BLOOD ORDERABLES Final Re sult Performing Organization Address City/[facility] Co de Phone Number [facility] [address] Department [place] [address] * Bilirubin, direct (09/04/2024 5:29 AM CDT) [facility] Bilirubin, direct 0.2 0.1 - 0.3 mg/dL Blood 09/04/2024 5:29 AM CDT 09/04/2024 5:39 AM CDT Jose Enriquez MD LAB BLOOD ORDERABLES Final Re sult Performing Organization Address [facility] de Phone Number [facility] [address] [facility] [place] [address] * (ABNORMAL) Comprehensive metabolic panel (09/04/2024 5:29 AM CDT) [facility] Sodium 139 135 - 145 mmol/L Potassium, pl 3.3 3.3 - 4.9 mmol/L [facility] Chloride 106 97 - 110 mmol/L [facility] CO2 22 22 - 32 mmol/L [facility] Anion gap 11 2 - 15 mmol/L [facility] BUN 11 6 - 25 mg/dL [facility] Creatinine 0.81 0.80 - 1.30 mg/dL [facility] Glucose 115 70 - 199 mg/dL [facility] Comment: Interpretive Data Fasting glucose >/= 126 [...] 2022. Calcium 8.0(L) 8.5 - 10.3 mg/dL [facility] Bilirubin, total 0.4 0.1 - 1.2 mg/dL [facility] Protein, pl 6.1(L) 6.5 - 8.5 g/dL [facility] Albumin 2.8(L) 3.5 - 5.0 g/dL [facility] Alk phos 176(H) 40 - 130 Units/L [facility] ALT 23 7 - 55 Units/L [facility] AST 45 10 - 50 Units/L [facility] Blood 09/04/2024 5:29 AM CDT 09/04/2024 5:39 AM CDT Jose Enriquez MD LAB BLOOD ORDERABLES Final Re sult Performing Organization Address [facility]/ZIP Co de Phone Number [facility] [address] [place] [address] * POCT glucose (09/04/2024 4:37 AM CDT) [facility] Signature Glucose, POC 129 70 - 199 mg/dL Comment: For Glucose values <35 mg/dl when Hematocrit is >60 mg/dl,the test may not accurately detect significant hypoglycemia,and testing in the Laboratory should be considered if clinically indicated. Blood 09/04/2024 4:37 AM CDT 09/04/2024 4:37 AM CDT Deanna Bangura MD LAB POCT ORDERABLES - DEVICE F inal Result Performing Organization Address [facility]/ZIP Co de Phone Number [facility] [address] [place] [address] * POCT glucose (09/04/2024 12:01 AM CDT) [...] POCT ORDERABLES - DEVICE F inal Result [facility] [address] [place] [address] * eGFR (09/03/2024 6:33 AM CDT) Pathologist [facility] eGFR >90 >=60 mL/min/1. 73 m2 Comment: [...] MD LAB BLOOD ORDERABLES Final Re sult [facility] [address] [place] [address] * Differential, auto (09/03/2024 6:33 AM CDT) Neutrophil abs 3.3 1.5 - 6.5 K/cumm Imm gran abs 0.1 0.0 - 0.1 K/cumm [facility] Lymphocyte abs 1.0 0.8 - 3.3 K/cumm [facility] Monocyte abs 0.6 0.2 - 0.8 K/cumm [facility] Eosinophil abs 0.3 0.0 - 0.5 K/cumm [facility] Basophil abs 0.1 0.0 - 0.1 K/cumm [facility] Neutrophil pct 63.1 % [facility] Comment: Interpretive Data Percent cell count reference ranges are not reported, since discordance with absolute values may lead to misinterpretation of CBC data. Current Interpretive Data was last revised on 2018. Imm gran pct 1.0 % [facility] Comment: Interpretive Data Percent cell count reference ranges are not reported, since discordance with absolute values may lead to misinterpretation of CBC data. Current Interpretive Data was last revised on 2018. Lymphocyte pct 18.3 % [facility] Comment: Interpretive Data Percent cell count reference ranges are not reported, since discordance with absolute values may lead to misinterpretation of CBC data. Current Interpretive Data was last revised on 2018. Monocyte pct 11.6 % [facility] Comment: Interpretive Data Percent cell count reference ranges are not reported, since discordance with absolute values may lead to misinterpretation of CBC data. Current Interpretive Data was last revised on 2018. Eosinophil pct 4.8 % [facility] Comment: Interpretive Data Percent cell count reference ranges are not reported, since discordance with absolute values may lead to misinterpretation of CBC data. Current Interpretive Data was last revised on 2018. Basophil pct 1.2 % [facility] Comment: Interpretive Data Percent cell count reference ranges are not reported, since discordance with absolute values may lead to misinterpretation of CBC data. Current Interpretive Data was last revised on 2018. Blood 09/03/2024 6:33 AM CDT 09/03/2024 7:32 AM CDT Jose Enriquez MD LAB BLOOD ORDERABLES Final Re sult Performing Organization Address City/[facility]/ZIP Co de Phone Number [facility] [address] [employer] [place], [place] [phone] * Check Sample (09/03/2024 6:33 AM CDT) Pathologist [facility] ABO Rh O Positive MBC HCLL OTHER 09/03/2024 6:33 AM CDT 09/03/2024 8:44 PM CDT Deanna Bangura MD LAB BLOOD ORDERABLES Final Res ult Performing Organization Address [facility]/ZIP Co de Phone Number [facility] [address] [place] [place] [address] MBC * (ABNORMAL) CBC with auto differential (09/03/2024 6:33 AM CDT) WBC 5.2 3.8 - 9.9 K/cumm Hgb 8.2(L) 13.0 - 17.5 g/dL [facility] Hct 28.6(L) 38.9 - 50.3 % [facility] Plt 173 150 - 400 K/cumm [facility] MPV 9.6 9.1 - 12.3 fL [facility] RBC 3.51(L) 4.30 - 5.80 M/cumm [facility] MCV 81.5 81.3 - 96.4 fL [facility] MCH 23.4(L) 27.1 - 33.3 pg [facility] MCHC 28.7(L) 32.3 - 35.7 g/dL [facility] RDW CV 16.8(H) 11.1 - 14.9 % [facility] RDW SD 49.4(H) 35.7 - 48.1 fL [facility] NRBC abs 0.00 0.00 - 0.01 K/cumm [facility] Blood 09/03/2024 6:33 AM CDT 09/03/2024 7:32 AM CDT Milton Mclean MD LAB BLOOD ORDERABLES Final Result Performing Organization Address [facility]/ZIP Co de Phone Number [place] [address] [facility] [place] [address] * Phosphorus (09/03/2024 6:33 AM CDT) Phosphorus, pl 2.8 2.3 - 4.5 mg/dL Blood 09/03/2024 6:33 AM CDT 09/03/2024 7:32 AM CDT Kyrie Tucker MD LAB BLOOD ORDERABLES Final Re sult Performing Organization Address [facility] Co de Phone Number [facility] [address] Department [place] [address] * Bilirubin, direct (09/03/2024 6:33 AM CDT) Bilirubin, direct 0.3 0.1 - 0.3 mg/dL Blood 09/03/2024 6:33 AM CDT 09/03/2024 7:32 AM CDT Kyrie Tucker MD LAB BLOOD ORDERABLES Final Re sult Performing Organization Address [facility] [facility] Co de Phone Number [facility] [address] Department of [facility] [place], [place] [id number] * (ABNORMAL) Comprehensive metabolic panel (09/03/2024 6:33 AM CDT) Sodium 139 135 - 145 mmol/L Potassium, pl 3.5 3.3 - 4.9 mmol/L [facility] Chloride 107 97 - 110 mmol/L [facility] CO2 21(L) 22 - 32 mmol/L [facility] Anion gap 11 2 - 15 mmol/L [facility] BUN 13 6 - 25 mg/dL [facility] Creatinine 0.77(L) 0.80 - 1.30 mg/dL [facility] Glucose 92 70 - 199 mg/dL [facility] Comment: Interpretive Data Fasting glucose >/= 126 [...] 2022. Calcium 7.9(L) 8.5 - 10.3 mg/dL [facility] Bilirubin, total 0.6 0.1 - 1.2 mg/dL [facility] Protein, pl 6.0(L) 6.5 - 8.5 g/dL [facility] Albumin 2.4(L) 3.5 - 5.0 g/dL [facility] Alk phos 149(H) 40 - 130 Units/L [facility] ALT 23 7 - 55 Units/L [facility] AST 43 10 - 50 Units/L [facility] Blood 09/03/2024 6:33 AM CDT 09/03/2024 7:32 AM CDT us Kyrie Tucker MD LAB BLOOD ORDERABLES Final Re sult [facility] [address] [place] [address] * US RUQ (09/02/2024 5:26 PM CDT) [...] signed by: Jeremy Edwards M.D. Diana KUHN IMG US PROCEDURES Tiffany l Result * (ABNORMAL) Troponin T high-sensitivity 6-hour (09/02/2024 4:20 PM CDT) Trop T hs 72(H) <=22 ng/L Comment: Interpretive Data For further hscTnT resources including the diagnostic algorithm and an aid in interpretation, copy and paste this link: https://nrl.testKnowable.org/show/hsTrop Current Interpretive Data last revised 2020. Trop T hs delta 3 ng/L [facility] Trop T hs interp Insignificant [facility] Blood 09/02/2024 4:20 PM CDT 09/02/2024 4:29 PM CDT Result [facility] Kyrie Tucker MD LAB BLOOD ORDERABLES Final Re sult Performing Organization Address [facility] Co de Phone Number [facility] [address] [place] [address] * (ABNORMAL) Troponin T high-sensitivity 4-hour (09/02/2024 2:29 PM CDT) Trop T hs 71(H) <=22 ng/L Comment: Interpretive Data For further hscTnT resources including the diagnostic algorithm and an aid in interpretation, copy and paste this link: https://nrl.CleanEdison.org/show/hsTrop Current Interpretive Data last revised 2020. Trop T hs delta 2 ng/L [facility] Trop T hs interp Insignificant [facility] Blood 09/02/2024 2:29 PM CDT 09/02/2024 2:29 PM CDT Result [facility] Kyrie Tucker MD LAB BLOOD ORDERABLES Final Re sult Performing Organization Address City/[facility]/ZIP Co de Phone Number [facility] [address] Department [place] [address] * (ABNORMAL) Troponin T high-sensitivity 2-hour (09/02/2024 11:08 AM CDT) Trop T hs 70(H) <=22 ng/L Comment: Interpretive Data For further hscTnT resources including the diagnostic algorithm and an aid in interpretation, copy and paste this link: https://nrl.testcatalog.org/show/hsTrop Current Interpretive Data last revised 2020. Trop T hs delta See Comment ng/L [facility] Comment:Inappropriate collec tion time to report a delta. Trop T hs pct delta See Comment % [facility] Comment:Inappropriate collec tion time to report a delta. Trop T hs interp See Comment [facility] Comment:Inappropriate collec tion time to report a delta. Blood 09/02/2024 11:0 8 AM CDT 09/02/2024 11:19 AM CDT Kyrie Tucker MD LAB BLOOD ORDERABLES Final Re sult [facility] [address] [place] [address] * Blood culture Blood (09/02/2024 11:08 AM CDT) Report Final Report: No growth Blood 09/02/2024 11:0 8 AM CDT 09/02/2024 11:16 AM CDT Narrative [facility] - 09/07/2024 1:00 PM CDT From a [...] organism identification may be performed using the Of[employer] Blood Culture Identification panel. This assay detects microbial DNA in a blood culture broth. This assay has been cleared by the [place] Food and Drug Administration and its performance characteristics have been verified by the [facility]. Interpretive data was last revised on December 10, 2022. Kyrie Tucker MD LAB MICROBIOLOGY - GENERAL OR DERABLES Final Result Performing Organization Address [facility] Co de Phone Number [facility] [address] [place] [address] * (ABNORMAL) Troponin T high-sensitivity series (baseline, [...] ORDERABLES Final Re sult Performing Organization Address [facility]/ZIP Co de Phone Number [facility] [address] [place] [address] * Sepsis Lactate w/ Reflex (09/02/2024 9:38 AM CDT) Sepsis Lactate 1.3 0.7 - 2.0 mmol/L Blood 09/02/2024 9:38 AM CDT 09/02/2024 10:23 AM CDT Kyrie Tucker MD LAB BLOOD ORDERABLES Final Re sult Performing Organization Address City/[facility]/ZIP Co de Phone Number [facility] [address] Department [place] [address] * Blood culture Blood (09/02/2024 9:38 AM CDT) Report Final Report: No growth Blood 09/02/2024 9:38 AM CDT 09/02/2024 10:22 AM CDT Narrative [facility] - 09/07/2024 1:00 PM CDT [...] organism identification may be performed using the Of[employer]es Blood Culture Identification panel. This assay detects microbial DNA in a blood culture broth. This assay has been cleared by the [place] Food and Drug Administration and its performance characteristics have been verified by the [facility]. Interpretive data was last revised on December 10, 2022. Kyrie Tucker MD LAB MICROBIOLOGY - GENERAL OR DERABLES Final Result Performing Organization Address City/[facility]/ZIP Co de Phone Number [facility] [address] [place] [address] * Phosphorus (09/02/2024 9:38 AM CDT) Phosphorus, pl 2.5 2.3 - 4.5 mg/dL Blood 09/02/2024 9:38 AM CDT 09/02/2024 10:27 AM CDT Kyrie Tucker MD LAB BLOOD ORDERABLES Final Re sult [facility] [address] [place] [address] * Magnesium (09/02/2024 9:38 AM CDT) Magnesium 1.9 1.4 - 2.5 mg/dL Blood 09/02/2024 9:38 AM CDT 09/02/2024 10:27 AM CDT Kyrie Tucker MD LAB BLOOD ORDERABLES Final Re sult Performing Organization Address [facility] Co de Phone Number [facility] [address] [place] [address] * ECG 12 lead (09/02/2024 8:21 AM CDT) 09/02/2024 8:21 AM CDT Narrative [facility] - 09/02/2024 2:31 PM CDT Vent Rate: 92 bpm RR Interval: 650 msec [place] Interval: 154 msec QRS Duration: 151 msec QT Interval: 406 msec QTC Interval: 456 msec P-R-T [place]: 37 - 267 - 106 degrees IMPRESSION: ELECTRONIC VENTRICULAR PACEMAKER ABNORMAL RHYTHM ECG NO PRIOR TRACING Electronically Signed By: Mynor Arnett MD [facility] Kyrie Tucker MD ECG ORDERABLES Final Result Performing Organization Address [facility] de Phone Number [facility] * eGFR (09/02/2024 6:11 AM CDT) eGFR [...] MD LAB BLOOD ORDERABLES Final Re sult [facility] [address] [place] [address] * Differential, auto (09/02/2024 6:11 AM CDT) Neutrophil abs 4.1 1.5 - 6.5 K/cumm Imm gran abs 0.1 0.0 - 0.1 K/cumm [facility] Lymphocyte abs 0.9 0.8 - 3.3 K/cumm [facility] Monocyte abs 0.5 0.2 - 0.8 K/cumm [facility] Eosinophil abs 0.3 0.0 - 0.5 K/cumm [facility] Basophil abs 0.1 0.0 - 0.1 K/cumm [facility] Neutrophil pct 70.0 % [facility] Comment: Interpretive Data Percent cell count reference ranges are not reported, since discordance with absolute values may lead to misinterpretation of CBC data. Current Interpretive Data was last revised on 2018. Imm gran pct 0.9 % [facility] Comment: Interpretive Data Percent cell count reference ranges are not reported, since discordance with absolute values may lead to misinterpretation of CBC data. Current Interpretive Data was last revised on 2018. Lymphocyte pct 15.2 % [facility] Comment: Interpretive Data Percent cell count reference ranges are not reported, since discordance with absolute values may lead to misinterpretation of CBC data. Current Interpretive Data was last revised on 2018. Monocyte pct 8.3 % [facility] Comment: Interpretive Data Percent cell count reference ranges are not reported, since discordance with absolute values may lead to misinterpretation of CBC data. Current Interpretive Data was last revised on 2018. Eosinophil pct 4.7 % [facility] Comment: Interpretive Data Percent cell count reference ranges are not reported, since discordance with absolute values may lead to misinterpretation of CBC data. Current Interpretive Data was last revised on 2018. Basophil pct 0.9 % [facility] Comment: Interpretive Data Percent cell count reference ranges are not reported, since discordance with absolute values may lead to misinterpretation of CBC data. Current Interpretive Data was last revised on 2018. Blood 09/02/2024 6:11 AM CDT 09/02/2024 6:52 AM CDT Jose Enriquez MD LAB BLOOD ORDERABLES Final Re sult [facility] [address] [place] [address] * (ABNORMAL) CBC with auto differential (09/02/2024 6:11 AM CDT) WBC 5.8 3.8 - 9.9 K/cumm Hgb 7.9(L) 13.0 - 17.5 g/dL [facility] Hct 27.3(L) 38.9 - 50.3 % [facility] Plt 186 150 - 400 K/cumm [facility] MPV 9.8 9.1 - 12.3 fL [facility] RBC 3.35(L) 4.30 - 5.80 M/cumm [facility] MCV 81.5 81.3 - 96.4 fL [facility] MCH 23.6(L) 27.1 - 33.3 pg [facility] MCHC 28.9(L) 32.3 - 35.7 g/dL [facility] RDW CV 16.8(H) 11.1 - 14.9 % [facility] RDW SD 49.3(H) 35.7 - 48.1 fL [facility] NRBC abs 0.00 0.00 - 0.01 K/cumm [facility] Blood 09/02/2024 6:11 AM CDT 09/02/2024 6:52 AM CDT Milton Mclean MD LAB BLOOD ORDERABLES Final Result Performing Organization Address [facility]/ZIP Co de Phone Number [facility] [address] Department [place] [address] * Phosphorus (09/02/2024 6:11 AM CDT) Pathologist [facility] Phosphorus, pl 2.3 2.3 - 4.5 mg/dL Blood 09/02/2024 6:11 AM CDT 09/02/2024 6:51 AM CDT Jose Enriquez MD LAB BLOOD ORDERABLES Final Re sult Performing Organization Address [facility] Co de Phone Number [facility] [address] Department [place] [address] * (ABNORMAL) Bilirubin, direct (09/02/2024 6:11 AM CDT) [facility] Bilirubin, direct 0.4(H) 0.1 - 0.3 mg/dL Blood 09/02/2024 6:11 AM CDT 09/02/2024 6:51 AM CDT Jose Enriquez MD LAB BLOOD ORDERABLES Final Re sult Performing Organization Address [facility] Co de Phone Number [facility] [address] [facility] [place] [address] * (ABNORMAL) Comprehensive metabolic panel (09/02/2024 6:11 AM CDT) Pathologist [facility] Sodium 140 135 - 145 mmol/L Potassium, pl 3.5 3.3 - 4.9 mmol/L [facility] Chloride 106 97 - 110 mmol/L [facility] CO2 21(L) 22 - 32 mmol/L [facility] Anion gap 13 2 - 15 mmol/L [facility] BUN 14 6 - 25 mg/dL [facility] Creatinine 0.74(L) 0.80 - 1.30 mg/dL [facility] Glucose 100 70 - 199 mg/dL [facility] Comment: Interpretive Data Fasting glucose >/= 126 [...] 2022. Calcium 7.7(L) 8.5 - 10.3 mg/dL [facility] Bilirubin, total 0.7 0.1 - 1.2 mg/dL [facility] Protein, pl 6.1(L) 6.5 - 8.5 g/dL [facility] Albumin 2.7(L) 3.5 - 5.0 g/dL [facility] Alk phos 146(H) 40 - 130 Units/L [facility] ALT 23 7 - 55 Units/L [facility] AST 38 10 - 50 Units/L [facility] Blood 09/02/2024 6:11 AM CDT 09/02/2024 6:51 AM CDT Jose Enriquez MD LAB BLOOD ORDERABLES Final Re sult [facility] [address] Department [place] [address] * eGFR (09/01/2024 9:13 PM CDT) [...] ORDERABLES Final Re sult Performing Organization Address City/[facility]/ZIP Co de Phone Number [facility] [address] [place] [address] * (ABNORMAL) Phosphorus (09/01/2024 9:13 PM CDT) Phosphorus, pl 2.0(L) 2.3 - 4.5 mg/dL Blood 09/01/2024 9:13 PM CDT 09/01/2024 9:29 PM CDT Jose Enriquez MD LAB BLOOD ORDERABLES Final Re sult [facility] [address] Department [place] [address] * (ABNORMAL) Bilirubin, direct (09/01/2024 9:13 PM CDT) Pathologist [facility] Bilirubin, direct 0.5(H) 0.1 - 0.3 mg/dL Blood 09/01/2024 9:13 PM CDT 09/01/2024 9:29 PM CDT Jose Enriquez MD LAB BLOOD ORDERABLES Final Re sult [facility] [address] [place] [address] * (ABNORMAL) Comprehensive metabolic panel (09/01/2024 9:13 PM CDT) Pathologist [facility] Sodium 138 135 - 145 mmol/L Potassium, pl 3.5 3.3 - 4.9 mmol/L [facility] Chloride 105 97 - 110 mmol/L [facility] CO2 22 22 - 32 mmol/L [facility] Anion gap 11 2 - 15 mmol/L [facility] BUN 14 6 - 25 mg/dL [facility] Creatinine 0.76(L) 0.80 - 1.30 mg/dL [facility] Glucose 110 70 - 199 mg/dL [facility] Comment: Interpretive Data Fasting glucose >/= 126 [...] 2022. Calcium 8.1(L) 8.5 - 10.3 mg/dL [facility] Bilirubin, total 0.8 0.1 - 1.2 mg/dL [facility] Protein, pl 6.6 6.5 - 8.5 g/dL [facility] Albumin 3.1(L) 3.5 - 5.0 g/dL [facility] Alk phos 148(H) 40 - 130 Units/L [facility] ALT 26 7 - 55 Units/L [facility] AST 40 10 - 50 Units/L [facility] Blood 09/01/2024 9:13 PM CDT 09/01/2024 9:29 PM CDT us Jose Enriquez MD LAB BLOOD ORDERABLES Final Re sult [facility] [address] [place] [address] * (ABNORMAL) Lipid panel (07/24/2024 4:21 PM [...] revised on 2018. Triglycerides 100 <=149 mg/dL [facility] Comment: Interpretive Data Ages < or = [...] revised on 2018. HDL 26(L) >=40 mg/dL [facility] Comment: Interpretive Data Ages < or [...] on 2018. LDL, calculated 56 <=129 mg/dL [facility] Comment: Interpretive Data Ages < or = 19 years ??Acceptable: ? <110 mg/dL ??Borderline high: ??110-129 mg/dL ??High: ?>or= 130 mg/dL Ages > or = 20 years ??Optimal: ? <100 mg/dL ??Near optimal: ?100-129 mg/dL ??Borderline high: ?? 130-159 mg/dL ??High: ?>160 mg/dL Calculated using the Vaughn LDL-C estimating equation. This equation was implemented [...] revised on 2024. Non-HDL Cholesterol 75 mg/dL [facility] Comment: Interpretive Data Ages < or = [...] last revised on 2018. Chol/HDL ratio 4 [facility] Blood 07/24/2024 4:21 PM CDT 07/24/2024 4:34 PM CDT us Johnathan Mckee MD LAB BLOOD ORDERABLES Fi nal Result [facility] [place] [address] * (ABNORMAL) POCT hemoglobin A1c (07/14/2024 11:10 AM CDT) Hgb A1C, POC 7.5(H) 4.0 - 5.6 % Est Average Gluc POC 169 mg/dL [facility] Comment: The ADA recommends reporting an estimated Average Glucose (eAG) with all Hemoglobin A1c results using the equation derived from a study of 507 normal and diabetic adults. ??Minority populations were underrepresented and children were not included. ?? (Diabetes Care 31:8650-2970, 2008). ??The eAG is not equivalent to a fasting glucose. 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 TE[facility] [address] [place] [address] PCP - General Internal Medicine 07[facility]05/24 [facility] [address] [place] [address] Referring Physician Cardiology 07/05/24 Johnathan Mckee MD [id number] [place] [address] Consulting Physician General Surgery 08/11/24 Praveen Garduno MD [address] [facility] [address] [place] [address] Consulting Physician General Surgery 09/07/24
--- OUTSIDE RECORDS SUMMARY | 2024-11-17 04:25 | XMS_ITS | Encounter Summary ---
Author Organization [facility] Healthcare Address [address] [place] [address] Care Team Providers Care Shop Lead Name Role Phone Juan Retana MD Primary Care Provider [phone] [facility], Alverto Gutierrez Unavailable Johnathan Mckee MD Unavailable [phone] Reason for Visit * Auth/Cert (Routine) Specialty Diagnoses / Procedures Referred By Contac t Referred To Contact Diagnoses Acute cholecystitis cholecystitis Procedures na Referral ID Status Reason Start Date Expiration Date Visits Re quested Visits Authorized [id number] 1 1 Encounter Details Date Type Department Care Team (Late st Contact Info) Description 09/05/2024 2:27 PM CDT Anesthesia Event [facility] [address] [place] [id number] Mehul Rodriguez MD [address] [facility] [address] [place] [address] Maria T Hanna, PEDIATRIC GENETIC COUNSELOR [address] [place] [address] Anesthesia Record Procedure Summary Procedure Name Responsible Anesthesiologist Anesthesia Start Time Anesthesia Stop Time ENDO ENDOSCOPIC RETROGRADE CHOLANGIOPANCREATOGRAPHY WITH STENT PLACEMENT Mehul Rodriguez MD 09/05/24 1427 09/05/24 1507 Events Date Time Event Comment 09/05/2024 1347 1427 In Room 1427 An Start 1427 An Start Data 1429 Bite Block Placed 1429 An Induction The patient was reevaluated immediately before moderate or deep sedation use and before anesthesia induction. 1431 Patient Positioned Prone 1435 Proc Start 1435 Anesthesia Ready 1457 Proc Fin 1459 Position Supine 1500 an stop data 1500 Out of Room 1507 Handoff to RN I completed my handoff to the receiving nurse during which we: 1. Patient identified 2. Responsible provider identified 3. Pertinent medical history reviewed 4. Procedure type and surgical course discussed 5. Intraoperative anesthetic management and any significant issues discussed 6. Expectations and concerns for postop period discussed 7. Questions solicited from receiving nurse 8. Patient disposition at the time of handoff: PACU 1507 An Stop 1507 Release from care Meds Name Total lidocaine (cardiac) syringe 2 % 100 mg propofol 150 mg fentaNYL 100 mcg glycopyrrolate 0.3 mg ondansetron 4 mg dexAMETHasone 4 mg/mL 4 mg NS 0.9% 600 mL * Agents Name O2 * Blood No blood administrations on file. Lines, Drains, and Airways Type Details Placement Removal Wound 09/04/24; Incision; Abdomen (trocar sites) 09/04/24 0000 by Katerine Medina, NAVIN RETIRED Surgical Site 06/28/20; 1525; Le ft; Eye; 10/10/24 (Retired LDA, Removed/Completed by [employer] with LDA Utility); 1213 (Retired LDA, Removed/Completed by [employer] with LDA Utility); Other (Comment) 06/28/20 1525 by Celina Eagle RN 10/10/24 1213 by Discharge Provider, Automatic RETIRED Surgical Site 06/28/20; 1525; Right; Eye; 10/10/24 (Retired LDA, Removed/Completed by [facility] with LDA Utility); 1213 (Retired LDA, Removed/Completed by [facility] with LDA Utility); Other (Comment) 06/28/20 1525 by Celina Eagle RN 10/10/24 1213 by Discharge Provider, Automatic Wound 07/24/24; 0957; Incision; Chest; Anterior, Medial; 09/07/24 07/24/24 0957 by Abebe Avila RN 09/07/24 0000 by Cathi Reyes RN Wound 07/24/24; 0957; Incision; Arm; Left; 09/07/24 07/24/24 0957 by Abebe Avila, NAVIN 09/07/24 0000 by Cathi Reyes RN Wound 07/24/24; 0958; Incision; Leg; Right; 09/07/24 07/24/24 0958 by Abebe Avila RN 09/07/24 0000 by Cathi Reyes RN Wound 07/24/24; 1600; Mediastinal; CT and EPW; 09/07/24 07/24/24 1600 by Bonita Ennis RN 09/07/24 0000 by Cathi Reyes RN External Urinary Device 08/05/24; 1728; 09/07/24 08/05/24 1728 by Leanna Baltazar 09/07/24 0000 by Cathi Reyes RN Closed/Suction/Open Drain 09/04/24; 1; Lateral, Right; Abdomen; Bulb; 19 Fr. 09/04/24 0000 by Katerine Medina RN 09/07/24 1030 by Cathi Reyes RN Peripheral IV Placement Date: 09/04/24; Placement Time: 1327 (created via procedure documentation); Catheter Size: 18 G; Orientation: Left; Location: Forearm; Site Prep: Chlorhexidine; Insertion Attempts: 1; Removal Date: 09/05/24; Removal Time: 1706; Removal Reason: Removed by patient 09/04/24 1327 by Myesha Amador, PEDIATRIC GENETIC COUNSELOR 09/05/24 1706 by Veronica Mathis RN documented in this encounter Social History Tobacco Use Types Packs/Day Years Used Date Smoking Tobacco: Former Cigarettes 1.5 19.6 1 961 - 06/11/1980 Passive Smoke Exposure: Past Smokeless Tobacco: Never Alcohol Use Standard Drinks/Week Comments Yes 0 (1 standard drink = 0.6 oz pur e alcohol) rare - maybe 1 beer/month [facility] [employer] Answer Date Recorded In the past 12 months has [email or web address], gas, oil, or water [employer] threatened to shut off services in your [...] often do you attend chur ch or shinto services? Never 09/05/2024 Do you belong to any clubs o r organizations such as taoist groups, unions, fraternal or athletic groups, or [...] any time in the past 12 [facility], were you homeless or living in a fpc (including now)? No 09/05/2024 Personal Safety Answer Date Recorded Have you ever been in or are you currently in a harmful physical or emotional relationship or is someone making you feel afraid or unsafe? 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 Gender Identity Not on file Sexual Orientation Not on file documented as of this encounter OR Notes * Anesthesia Postprocedure Evaluation - Maria T Hanna CRNA - 09/05/2024 3:07 PM CDT Patient: Abiel Fink Procedure Summary Date: 09/05/24 Room / Location: [facility] Anesthesia Start: 1427 Anesthesia Stop: 1507 Procedures: ENDO ENDOSCOPIC RETROGRADE CHOLANGIOPANCREATOGRAPHY WITH STENT PLACEMENT ENDO ADD ON ENDOSCOPIC RETROGRADE CHOLANGIOPANCREATOGRAPHY WITH STENT PLACEMENT Diagnosis: Acute cholecystitis (Acute cholecystitis [K81.0]) Providers: Milton Mclean MD Responsible Provider: Mehul Rodriguez MD Anesthesia Type: general/TIVA ASA Status: 3 Anesthesia Type: general/TIVA Last vitals BP 146/81 Pulse 94 Temp 36.2 ??C (97.2 ??F) (Temporal) Resp 16 SpO2 94% Anesthesia Post Evaluation Patient location during evaluation: PACU (GI recovery area) Patient participation: waiting for patient participation Level of consciousness: 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 * Anesthesia Preprocedure Evaluation - Mehul Rodriguez MD - 09/05/2024 1:45 PM CDT Images from the original note were not included. Anesthesia Evaluation Abiel Fink is a 74 y.o. 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 ?? 09/02/2024 8:18 AM Past Medical History Information obtained from: patient and chart. Information obtained during: In Person Cardiovascular + Hypertension + CAD + CABG + Current valvular disease - + Other arrhythmia (heart block) + Pacemaker/ICD - Comments: SUMMARY: Technically difficult study. Midly enlagred LV size and decreased systolic function with LVEF 26%. Paradoxical septum wall motion abnormality Likely normal RV fucntion. LA is moderately dilated. Mod MR. Trace pericardial effusion. No previous study for the comparison. Confirmed on 08/03/2024 - 16:04:01 by Eric Roberts MD Respiratory + Asthma Hepatic / Heme + History of anemia Gastrointestinal + GERD + Hiatal hernia Endocrine / Other + Diabetes mellitus Patient Active Problem List Diagnosis Date Noted Biventricular cardiac pacemaker in situ 09/02/2024 Acute cholecystitis 09/01/2024 DM2 (diabetes mellitus, type 2) ([facility]) 08/06/2024 Coronary artery disease with history of myocardial infarction without history of CABG 07/24/2024 Coronary artery disease due to calcified coronary lesion 07/24/2024 CAD, multiple vessel 07/05/2024 Bradycardia 07/05/2024 Complete heart block (CMS/HCC) ([facility]) 07/05/2024 Junctional escape rhythm 07/05/2024 Senile ectropion of both lower eyelids 06/11/2020 Lesion of eyelid of both eyes 06/11/2020 Past Medical History: Diagnosis Date Asthma Diabetes mellitus (HCC) GERD (gastroesophageal reflux disease) HH (hiatus hernia) Hypertension Sleep apnea pt uses CPAP machine nightly Past Surgical History: Procedure Laterality Date KIDNEY SURGERY 1960 MULTIPLE TOOTH EXTRACTIONS TOTAL KNEE ARTHROPLASTY Left 2017 TOTAL KNEE ARTHROPLASTY Right 2019 Allergies Allergen Reactions Tramadol Itching Med List Status: Pharmacy Complete Set By: Lanie Hathaway [facility] at 09/01/2024 7:02 PM Taking? Last Dose Start Date End Date Provider albuterol HFA (PROVENTIL HFA,VENTOLIN HFA,PROAIR HFA) 90 mcg/actuation inhaler -- -- -- Nasir Nagel MD ammonium lactate (AMLACTIN) 12 % cream -- 02/11/24 -- Nasir Nagel MD aspirin 81 mg enteric coated tablet -- -- -- Nasir Nagel MD atorvastatin (LIPITOR) 80 mg tablet -- 08/12/24 08/12/25 Johnathan Mckee MD Take 1 tablet (80 mg total) by mouth daily bumetanide (BUMEX) 1 mg tablet -- 06/07/24 -- Nasir Nagel MD carboxymethylcell-glycerin,PF, 0.5-0.9 % drops -- 05/12/24 -- Nasir Nagel MD carvediloL (COREG) 3.125 mg tablet -- 08/17/24 08/17/25 Cindy Pacheco NP Take 1 tablet (3.125 mg total) by mouth 2 (two) times a day with meals clopidogreL (PLAVIX) 75 mg tablet -- 08/12/24 08/12/25 Johnathan Mckee MD Take 1 tablet (75 mg total) by mouth daily DULoxetine DR (CYMBALTA) 60 mg capsule -- -- -- Nasir Nagel MD isosorbide mononitrate ER (IMDUR) 30 mg 24 hr tablet -- 08/12/24 08/12/25 Johnathan Mckee MD Take 0.5 tablets (15 mg total) by mouth daily magnesium oxide (MAG-OX) 400 mg (241.3 mg elemental magnesium) tablet -- 08/11/24 08/11/25 Johnathan Mckee MD Take 2 tablets (800 mg total) by mouth 2 (two) times a day MULTIVITAMIN ORAL -- -- -- Nasir Nagel MD omeprazole (PriLOSEC) 20 mg capsule -- -- -- Nasir Nagle MD pregabalin (LYRICA) 100 mg capsule -- 08/11/24 02/07/25 Johnathan Mckee MD Take 1 capsule (100 mg total) by mouth 2 (two) times a day Current Facility-Administered Medications: [Transfer Hold] acetaminophen (TYLENOL) tablet 650 mg, 650 mg, oral, Q6H PRN, 650 mg at 09/04/242003 [Transfer Hold] albuterol HFA (PROVENTIL HFA,VENTOLIN HFA,PROAIR HFA) 90 mcg/actuation inhaler 2 puff, 2 puff, inhalation, Q6H PRN (RT), 2 puff at 09/03/242024 [Held by Provider] aspirin enteric coated tablet 81 mg, 81 mg, oral, Daily [Transfer Hold] atorvastatin (LIPITOR) tablet 80 mg, 80 mg, oral, Daily, 80 mg at 09/05/24 08 [Transfer Hold] bisacodyl EC (DULCOLAX EC) tablet 10 mg, 10 mg, oral, Daily PRN OR [Transfer Hold] bisacodyL (DULCOLAX) suppository 10 mg, 10 mg, rectal, Daily PRN [Transfer Hold] bumetanide (BUMEX) tablet 0.5 mg, 0.5 mg, oral, Daily, 0.5 mg at 09/05/24 0841 [Transfer Hold] Carrier Fluids for Secondary Infusion - 0.9% Sodium Chloride, 30 mL, intravenous, PRN [Transfer Hold] Carrier Fluids for Secondary Infusion - 0.9% Sodium Chloride, 30 mL, intravenous, PRN [Transfer Hold] carvediloL (COREG) tablet 3.125 mg, 3.125 mg, oral, BID with meals (bkfst, dinner),3.125 mg at 09/05/24 0841 [Transfer Hold] DULoxetine DR (CYMBALTA) extended release capsule 60 mg, 60 mg, oral, QAM, 60 mg at1 1007 [Transfer Hold] enoxaparin (LOVENOX) syringe 40 mg, 40 mg, subcutaneous, Daily-2100 [Transfer Hold] HYDROcodone-acetaminophen (NORCO) 5-325 mg per tablet 1 tablet, 1 tablet, oral, Q4HPRN, 1 tablet at 09/05/24 1043 [Transfer Hold] HYDROmorphone (PF) (DILAUDID) injection 0.2 mg, 0.2 mg, intravenous, Q6H PRN, 0.2 mg at 09/05/24 0712 [Transfer Hold] isosorbide mononitrate ER (IMDUR) extended release tablet 15 mg, 15 mg, oral, Daily, 15 mg at 09/05/24 0841 [Transfer Hold] ondansetron ODT (ZOFRAN-ODT) disintegrating tablet 4 mg, 4 mg, oral, Q6H PRN OR[Transfer Hold] ondansetron (ZOFRAN) injection 4 mg, 4 mg, intravenous, Q6H PRN [Transfer Hold] pantoprazole DR (PROTONIX) extended release tablet 40 mg, 40 mg, oral, Daily, 40 mgat 09/05/24 0841 [Transfer Hold] piperacillin-tazobactam (ZOSYN) 3.375 g in sodium chloride 0.9% 100 mL IVPB, 3.375 g, intravenous, Q6H HILDA, Last Rate: 200 mL/hr at 09/05/24 1302, 3.375 g at 09/05/24 1302 [Transfer Hold] polyethylene glycol (MIRALAX) packet 17 g, 17 g, oral, Daily PRN [Transfer Hold] pregabalin (LYRICA) capsule 100 mg, 100 mg, oral, BID, 100 mg at 09/05/24 0841 [Transfer Hold] sodium chloride 0.9% flush 0.5-20 mL, 0.5-20 mL, intra-catheter, Q8H HILDA, 10 mL at 09/04/24 2013 [Transfer Hold] sodium chloride 0.9% flush 0.5-20 mL, 0.5-20 mL, intra-catheter, PRN [Transfer Hold] sodium chloride 0.9% flush 0.5-20 mL, 0.5-20 mL, intra-catheter, Q8H HILDA, 10 mL at 09/05/24 1303 [Transfer Hold] sodium chloride 0.9% flush 0.5-20 mL, 0.5-20 mL, intra-catheter, PRN, 10 mL at 09/03/24 0138 Social History Tobacco Use Smoking Status Former Current packs/day: 0.00 Average packs/day: 1.5 packs/day for 19.6 years (29.4 ttl pk-yrs) Types: Cigarettes Start date: 1960 Quit date: 06/11/1980 Years since quittin.2 Passive exposure: Past Smokeless Tobacco Never Alcohol Use: Not At Risk (07/24/2024) AUDIT-C Frequency of Alcohol Consumption: Monthly or less Average Number of Drinks: 1 or 2 Frequency of Binge Drinking: Never Substance and Sexual Activity Drug Use Not Currently Family History Problem Relation Age of Onset Cardiomyopathy Mother Anesthesia problems Neg Hx Malig Hypertension Neg Hx Malig Hyperthermia Neg Hx Pseudochol deficiency Neg Hx Vitals: 09/05/24 0419 09/05/24 0844 09/05/24 1224 BP: 142/72 127/81 145/72 Pulse: 73 79 77 Resp: 20 18 18 Temp: 36.4 ??C (97.6 ??F) 37 ??C (98.6 ??F) 36.8 ??C (98.3 ??F) SpO2: 93% 95% 93% PT: No results found for requested labs within last 30 days. INR: No results found for requested labs within last 30 days. APTT: No results found for requested labs within last 30 days. Hgb A1C: No results found for requested labs within last 30 days. CBC RBC: 09/05/2024: 4.24 M/cumm (L) RDW: No results found for requested labs within last 30 days. MCHC: 09/05/2024: 29.2 g/dL (L) MCH: 09/05/2024: 23.6 pg (L) MCV: 09/05/2024: 80.9 fL (L) Hct: 09/05/2024: 34.3 % (L) Hgb: 09/05/2024: 10.0 g/dL (L) WBC: 09/05/2024: 7.1 K/cumm MPV: 09/05/2024: 9.4 fL Platelets: 09/05/2024: 185 K/cumm RDW CV: 09/05/2024: 16.9 % (H) RDW Sd: 09/05/2024: 49.4 fL (H) BMP Glucose: 09/05/2024: 164 mg/dL Calcium: 09/05/2024: 8.3 mg/dL (L) Sodium: 09/05/2024: 139 mmol/L Potassium: 09/05/2024: 4.3 mmol/L CO2: 09/05/2024: 22 mmol/L Chloride: 09/05/2024: 105 mmol/L BUN: 09/05/2024: 12 mg/dL Creatinine: 09/05/2024: 0.83 mg/dL DOS Physical Exam Medical history, medications, and allergies reviewed. Attestation: This PAT evaluation 09/05/2024. Airway Exam: Mallampati: II Cervical ROM: FROM TM distance: 3.5 Cardiovascular Exam: Rate: regular Rhythm: regular Pulmonary Exam: (Non-labored breathing) EENT Exam: trachea midline Dental Exam: Edentulous Anesthesia Plan ASA 3 My patient is approved for the Anesthesia Controlled Medication protocol when under care of a PEDIATRIC GENETIC COUNSELOR Planned anesthesia: General/TIVA Team communication plan: mask Induction: Induction: intravenous. Postoperative Plan: No plan for postoperative opioid use. No postoperative mechanical ventilation intended. Informed Consent: Discussed plan with PEDIATRIC GENETIC COUNSELOR. Anesthesia plan and risks discussed with patient. Plan and Consent Comments: Backup plan is a general anesthetic with or without an endotracheal tube or LMA as required Consent and Attending signature: I and/or my designee have discussed the anesthesia plan, benefits, possible alternatives, parental presence at time of induction (if indicated), and clinically relevant risks that may include dental injury, unintentional awareness, and/or other complications. The patient and/or parent/legal guardian understand, and agree to proceed. All questions answered. documented in this encounter Plan of Treatment Not on file documented as of this encounter Visit Diagnoses Not on filedocumented in this encounter Administered Medications Inactive Administered Medications - up to 3 most recent administrations Medication Order MAR Action Action Date Dose Rate Site dexAMETHasone (DECADRON) 4 mg/mL injection intravenous, Administer over 2 Minutes, As needed, Starting on Wed09/05/24 at 1437, Anesthesia Intra-op Given 09/05/2024 2:37 PM CDT 4 mg fentaNYL (SUBLIMAZE) preservative free injection intravenous, As needed, Starting on Wed09/05/24 at 1435, Anesthesia Intra-op Given 09/05/2024 2:39 PM CDT 50 mcg Given 09/05/2024 2:35 PM CDT 50 mcg glycopyrrolate (ROBINUL) injection intravenous, Administer over 1 Minutes, As needed, Starting on 09/05/24 at 1428, Anesthesia Intra-op Given 09/05/2024 2:28 PM CDT 0.3 mg lidocaine (cardiac) (XYLOCAINE) preservative free injection intravenous, As needed, Starting on 09/05/24 at 1429, Anesthesia Intra-op, Indications: Ventricular ArrhythmiasIndications:Ventricular Arrhythmias Given 09/05/2024 2:29 PM CDT 100 mg ondansetron (ZOFRAN) injection intravenous, Administer over 2 Minutes, As needed, Starting on 09/05/24 at 1437, Anesthesia Intra-op Given 09/05/2024 2:37 PM CDT 4 mg propofoL (DIPRIVAN) 10 mg/mL IV intravenous, As needed, Starting on 09/05/24 at 1429, Anesthesia Intra-op Given 09/05/2024 2:48 PM CDT 40 mg Given 09/05/2024 2:40 PM CDT 40 mg Given 09/05/2024 2:29 PM CDT 70 mg sodium chloride 0.9% infusion intravenous, Continuous PRN, Starting on Wed09/05/24 at 1427, Anesthesia Intra-op New Bag 09/05/2024 2:27 PM CDT documented in this encounter Care Teams Shop Lead Relationship Specialty Start Date End Date Juan Retana MD [address] [facility] [address] [place] [address] PCP - General Internal Medicine [facility] [address] [place] [address] Referring Physician Cardiology 07/05/24 Johnathan Mckee MD [address] [facility] [id number] [place] [address] Consulting Physician General Surgery 08/11/24 documented as of this encounter
--- OUTSIDE RECORDS SUMMARY | 2024-11-17 04:25 | XMS_ITS | Encounter Summary ---
Author Organization [facility] Healthcare Address [address] [place] [address] Care Team Providers Care Industrial Pharmacist Name Role Phone Juan Retana MD Primary Care Provider [phone] [facility], Alverto Gutierrez Unavailable Johnathan Mckee MD Unavailable [phone] Ever Anton MD Unavailable [phone] Reason for Referral * Home Health (Routine) - Closed Specialty Diagnoses / Procedures Referred By Contac t Referred To Contact Home Health Services / Home Health and Hospice Diagnoses Acute cholecystitis S/P CABG x 3 Giovanny Garcia MD [address] [place] [address] Phone: tel: fax: [facility] Home Care Services [facility] [address] [place] [address] Referral ID Status Reason Start Date Expiration Date V isits Requested Visits Authorized [id number] Closed Specialty Services Required 09/06/2024 10/06/2025 1 1 Question Answer [id number] Home Health Primary disciplines requested: Physical Therapy Secondary disciplines requested: Occupational Therapy Home Health Services Therapy to Eval/Tx Therapy instructions: Evaluation/treatment, ADL/ ladl management Requested Start of Care [...] in part, for the following medical condition, which is the primary reason for home health care. [...] Requires assistance of another to leave home safely, Abnormal gait/unsteady balance resulting in fall risk * Consultation (Routine) - Pending Review Specialty Diagnoses / Procedures Referred By Su garber Referred To Contact Cardiac Rehabilitation Diagnoses S/P CABG x 3 Chronic systolic heart failure (CMS/HCC) ([facility]) Johnathan Mckee MD [address] [facility] [id number] [place] [address] Phone: tel: fax: [address] [address] Phone: tel: fax: Referral ID Status Reason Start Date Expiration Date Visits Requested Visits Authorized [id number] Pending Review Specialty Services Required 10/05/2025 36 36 Question Answer Please select the performing region: External Order [171] To loc/pos [facility] [[id number]] Select a phase: Phase 2 # of visits: 36 Reason for Visit * Auth/Cert (Routine) Specialty Diagnoses / Procedures Referred By Su garber Referred To Contact Diagnoses Acute cholecystitis cholecystitis Procedures na Referral ID Status Reason Start Date Expiration Date Visits Re quested Visits Authorized [id number] 1 1 Encounter Details Date Type Department Care Team (Latest Contact Info) Description 09/01/2024 6:29 PM CDT - 09/07/2024 3:05 PM CDT Hospital Encounter [facility] [address] [place] [id number] Jose Enriquez MD [address] [facility] [place] [address] Josefa Bell MD [address] [place] [id number] Deanna Bangura MD [address] [place], [place] [id number] Giovanny Garcia MD [address] [facility] [place] [address] Acute cholecystitis (Primary Dx); Coronary artery disease due to calcified coronary lesion; Coronary artery disease with history of myocardial infarction without history of CABG; Biventricular cardiac pacemaker in situ; Acute gangrenous appendicitis with perforation and peritonitis; S/P CABG x 3; Chronic systolic heart failure (CMS/HCC) (HCC) Discharge Disposition: Discharge to home or self care Social History Tobacco Use Types Packs/Day Years Used Date Smoking Tobacco: Former Cigarettes 1.5 19.6 1 961 - 06/11/1980 Passive Smoke Exposure: Past Smokeless Tobacco: Never Alcohol Use Standard Drinks/Week Comments Yes 0 (1 standard drink = 0.6 oz pur e alcohol) rare - maybe 1 beer/month [facility] Utilities Answer Date Recorded In the past 12 months has Tistag[employer], Quri, oil, or water madKast threatened to shut off services in your [...] week 09/05/2024 How often do you attend [facility] or tenriism services? Never 09/05/2024 Do you belong to any clubs o r organizations such as mormon groups, unions, fraternal or athletic groups, or [...] any time in the past 12 m [facility], were you homeless or living in a long-term (including now)? No 09/05/2024 Personal Safety Answer Date Recorded Have you ever been in or are you currently in a harmful physical or emotional relationship or is someone making you feel afraid or unsafe? 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 Gender Identity Not on file Sexual Orientation [...] Patient Age - 74 yrs Patient - [id number] [facility] - [id number] Document Creation Date: 09/07/2024 Admitting Provider, MD: Jose Enriquez MD Discharge Provider, : Giovanny Garcia MD Primary Care Physician at Discharge: Juan Retana MD [phone] Admission Date: 09/01/2024 Discharge Date/time: 09/07/2024 Admission Location: [facility] Hospital LOS - LOS: 6 days DETAILS OF HOSPITAL STAY Hospital Problems/Diagnoses Principal Problem: Acute cholecystitis Active Problems: Coronary artery disease with history of myocardial infarction without history of CABG Coronary artery disease due to calcified coronary lesion Complete heart block (CMS/HCC) (HCC) DM2 (diabetes mellitus, type 2) ([facility]) Biventricular cardiac pacemaker in situ Reason for Hospitalization: Acute gangrenous cholecystitis CAD with recent CABG Hospital Course: Pt is a 74 yo CM with hx including CAD, asthma, DM, GERD with hiatal hernia, HTN, heart block. He had completed 3-vessel CABG on 07/24 at the [facility], subsequently with pacemaker placement for heart block.He presented to [facility] on 09/01 for abd pain - CT showed acute cholecystitis. Surgery there declined to intervene because of his recent cardiac surgery and he was transferred to [facility]. Upon arrival he was seen by [...] weeks if possible, with Dr. Mckee and [facility] Cardiology as scheduled Allergies: Tramadol Discharge Medications: [...] Medications These medications were sent to [facility] [place], [place] - [address] [place] [id number] amoxicillin-clavulanate 875-125 mg per tablet HYDROcodone-acetaminophen 5-325 [...] [facility] 8B Cardiology 11/15/2024 1:00 PM Chrissy Bermudez NP CAR [facility] 8B Cardiology Contact Information for Follow-ups [facility] [address] [facility] [address] Next Steps: Follow up Questions: Please select the performing region: External Order To loc/pos: [facility] Select a phase: Phase 2 # of visits: 36 Referral Status: External - Ready to Schedule [facility] Home Care Services Specialty: Home Health and Hospice [address] [facility] [address] Next Steps: Follow up Questions: Service Line: [...] Surgery, Surgical Critical Care Relationship: Consulting Physician Annabelle S[address] [address] Next Steps: Follow up Instructions: Follow up with Dr Anton in 2weeks. Please call [phone] to make appointment. Questions: Instructions for follow-up (appointment date and time): Follow up with Dr Anton in 2weeks. Please call [phone] to make appointment. To provider: EVER ANTON Omar M., MD Specialty: General Surgery, Surgical Critical Care Relationship: Consulting Physician [address] [facility] [address] [facility] [address] Next Steps: Follow up Comments: Surgery in 2-4 weeks if possible for postop check Questions: To provider: EVER ANTON Please schedule an appointment with the following provider(s): [facility] [address] [facility] [address] [facility] Home Care Services [address] [facility] [address] Ever Anton MD [address] Anton in 2weeks. Please call [phone] to make appointment. Ever Anton MD [address] [place] [address] ANCILLARY INFORMATION Other Procedures & Diagnostic Tests: [...] Rate: 92 bpm RR Interval: 650 msec TX Interval: 154 msec QRS Duration: 151 msec QT Interval: 406 msec QTC Interval: 456 msec P-R-T King: 37 - 267 - 106 degrees IMPRESSION: ELECTRONIC VENTRICULARPACEMAKER ABNORMAL RHYTHM ECG NO PRIOR TRACING Electronically Signed By: Mynor Arnett MD [facility] Recent Labs: Recent Labs Lab Units 09/07/2461909/06/24123109/05/24 0640 WBC K/cumm 6.9 6.0 7.1 HEMOGLOBIN g/dL 8.6* 7.7* 10.0* HEMATOCRIT % 29.5* 25.7* 34.3* PLATELETS K/cumm 173 156 185 Recent Labs Lab Units 09/07/2461909/06/24123109/05/24 0640 WBC K/cumm 6.9 6.0 7.1 HEMOGLOBIN g/dL 8.6* 7.7* 10.0* HEMATOCRIT % 29.5* 25.7* 34.3* PLATELETS K/cumm 173 156 185 NEUTROS PCT % 78.4 81.5 85.1 LYMPHS PCT % 12.8 9.9 7.6 MONOS PCT % 6.1 6.2 4.8 EOS PCT % 0.6 0.0 0.1 Recent Labs Lab Units 09/07/2461909/06/24123109/05/24 0841 09/05/24 0527 SODIUM mmol/L 135 145 -- 139 POTASSIUM PLASMA mmol/L 4.1 3.6 -- 4.3 CHLORIDE mmol/L 104 107 -- 105 CO2 mmol/L 19* 18* -- 22 BUN SERUM mg/dL -- 12 CREATININE mg/dL 1.11 1.09 -- 0.83 XIY-TVG-CUUPFEF mL/min/1.73 m2 71 72 -- >90 GLUCOSE mg/dL 111 123 -- 139 POC GLUCOSE MONITOR -- -- < > -- CALCIUM mg/dL 7.6* 7.4* -- 8.3* ALBUMIN g/dL 2.4* 2.7* -- 3.1* PHOSPHORUS PLASMA mg/dL 3.2 3.1 -- 4.4 < > = values in this interval not displayed. Recent Labs Lab Units 09/07/2461909/06/242 09/06/24 0633 09/05/24 0841 09/05/24 0527 SODIUM [...] Units 09/07/24 0620 09/06/24 1232 09/05/24 0527 ALK PHOS Units/L 156* 145* 175* [...] 09/06/2024 Implant: Implants ICD Medtronic Inc Cardiac [place] Hf 2 Chamber Df4 Inline Cnctr Is4 [id number] - [id number] - [id number] - Implanted Inventory item: [employer]ON[employer] INC CARDIAC [place] HF 2 CHAMBER DF4 INLINE CNCTR IS4 [id number] Model/Cat number: [id number] Serial number: [id number] Care Team Assistant: Med[employer] Inc Implant Date: 08/04/2024 As of 08/04/2024 Status: Implanted Pacemaker-icd Generator Implant Site: Chest wall - subcutaneous Pacemaker-icd System Maximum Capability: CRTD Pacemaker, Icd Underlying Rhythms: Atrioventricular block Pacemaker, Icd Generator Current Programmed Mode: DDD Pacemaker Atrial Lead Threshold (v): 1 Pacemaker Atrial Lead Pulse Duration (ms): 0.4 Pacemaker Rv Lead Threshold (v): 0.5 Pacemaker Ventricular Lead Pulse Duration (ms): 0.4 Grooming Salon Manager Device Lv Lead Threshold (v): 1 Grooming Salon Manager Device Lv Lead Pulse Duration (ms): 0.4 Pacemaker-biological inspector Ra Sensing Amplitude (mv): 2.3 Pacemaker-biological inspector Rv Sensing Amplitude (mv): 6.6 Atrial Impedance: 589 Rv Impedance: 437 Lv Impedance: 418 Lead Shock Impedance Ohms: 83 Pacemaker Basic Pacing Rate: 60 Pacemaker-icd Av Delay (ms): 180 Pacemaker-icd Atrial Output Voltage (v): 3.5 Pacemaker-icd Atrial Pulse Duration (ms): 0.4 Pacemaker-icd Rv Output Voltage (v): 3.5 Pacemaker-icd Rv Pulse Duration (ms): 0.4 Grooming Salon Manager Lv Output Voltage (v): 2.5 Grooming Salon Manager Lv Pulse Duration (ms): 0.4 Presenting Rhythm: BIV Paced Sensor Monitored Heart Rate: 130 Lead Medtronic Inc Sprint Quattro Secure 62cm Tripolar Screw In Extendable [id number] - [id number] - [id number] - Implanted Inventory item: [employer] Sprint Quattro Secure 62cm Tripolar Screw In Extendable [id number] Model/Cat number: [id number] Serial number: [id number] Care Team Assistant: Med[employer]onic Inc Implant Date: 08/04/2024 As of 08/04/2024 Status: Implanted Pacemaker-icd Generator Implant Site: Chest wall - subcutaneous Medtronic Inc Attain Stability Quad Mri Surescan Active Fixation Lv Lead 88cm [id number] - [id number] - [id number] - Implanted Inventory item: [employer] ATTAIN STABILITY QUAD MRI SURESCAN ACTIVE FIXATION LV LEAD 88CM [id number] Model/Cat number: [id number] Serial number: [id number] Care Team Assistant: [employer] Inc Implant Date: 08/04/2024 As of 08/04/2024 Status: Implanted Pacemaker-icd Generator Implant Site: Chest wall - subcutaneous Med[employer]onic Inc Capsurefix Novus 6.2fr 2mm 52cm Bipolar Screw In Implantable Latex Free 5076-52 - [id number] - [id number] - Implanted Inventory item: [employer] INC Capsurefix Novus 6.2fr 2mm 52cm Bipolar Screw In Implantable Latex Free 5076-52 Model/Cat number: [id number] Serial number: [id number] Care Team Assistant: Med[employer]onic Inc Implant Date: 08/04/2024 As of 08/04/2024 Status: Implanted Pacemaker-icd Generator Implant Site: Chest wall - subcutaneous Other - see comments Med[employer]onic Inc Tyrx Absorbable Antibacterial Envelope-Large 3.3x2.9in [id number] - [id number] - Implanted Inventory item: [employer] INC TYRX ABSORBABLE ANTIBACTERIAL ENVELOPE-LARGE 3.3X2.9IN [id number] Model/Cat number: [id number] Care Team Assistant: Medtronic Inc Lot number: [id number] As of 08/04/2024 Status: Implanted Stent [employer] Wanda 10fr 7cm Biliary Stent [id number] - [id number] - Implanted Bile Duct Inventory item: [employer] WANDA 10FR 7CM BILIARY STENT [id number] Model/Cat number: [id number] Care Team Assistant: [employer] Wanda Lot number: [id number] As of 09/05/2024 Status: Implanted [employer] Suárez Flexi-Stent 5fr 3cm Small Pigtail Flexible .035in Stent 6551 - [id number] - Implanted Pancreas Inventory item: [employer] Suárez Flexi-stent 5fr 3cm Small Pigtail Flexible .035in Stent 6551 Model/Cat number: [id number] Care Team Assistant: [employer] Lot number: [id number] As of 09/05/2024 Status: Implanted Type Not Specified ShuttleCloud Device Closure Fibertape Sternal [place] Blunt Needle Ar-7289 - [id number] - Implanted Sternum Inventory item: ARTHAnhui Ji[employer]ang [employer] Device Closure Fibertape Sternal [place] Blunt Needle AR-7289 Model/Cat number: [id number] Care Team Assistant: [employer]uttleCloud Lot number: [id number] Device identifier: [id number] Device identifier type: GS1 As of 07/24/2024 Status: Implanted ShuttleCloud Device Closure Fibertape Sternal [place] Cutting Needle Ar-7288 - [id number] - Implanted Sternum Inventory item: Applied NanoWorks Device Closure Fibertape Sternal [place] Cutting Needle AR-7288 Model/Cat number: [id number] Care Team Assistant: Arthrex Inc Lot number: [id number] Device identifier: [id number] Device identifier type: GS1 As of 07/24/2024 Status: Implanted [employer] Plate Bone Low Profile 6 Hole H Shape Sternum Ti 115.102.06 - [id number] - Implanted Sternum Inventory item: ELISEO [employer] Plate Bone Low Profile 6 Hole H Shape Sternum Ti 115.102.06 Model/Cat number: [id number] Care Team Assistant: [employer] As of 07/24/2024 Status: Implanted [employer] Plate Bone Low Profile 6 Hole O Shape Sternum Ti 115.104.06 - [id number] - Implanted Sternum Inventory item: [employer] Plate Bone Low Profile 6 Hole O Shape Sternum Ti 115.104.06 Model/Cat number: [id number] Care Team Assistant: [employer] As of 07/24/2024 Status: Implanted [employer] Screw Bone Slf Drl Full Thread Locking 3.5x14mm Ti 100.035.14 - [id number] - Implanted Sternum Inventory item: [employer] Screw Bone Slf Drl Full Thread Locking 3.5x14mm Ti 100.035.14 Model/Cat number: [id number] Care Team Assistant: [employer] As of 07/24/2024 Status: Implanted [employer] Screw Bone Slf Drl Full Thread Locking 3.5x16mm Ti 100.035.16 - [id number] - Implanted Sternum Inventory item: [employer] Screw Bone Slf Drl Full Thread Locking 3.5x16mm Ti 100.035.16 Model/Cat number: [id number] Care Team Assistant: [employer] As of 07/24/2024 Status: Implanted [place] [employer] [place] Distal Marker Radiology Stainless Steel Sterile Amgm-D - [id number] - Implanted Heart Inventory item: [employer]ES[employer] [place] Distal Marker Radiology Stainless Steel Sterile AMGM-D Model/Cat number: [id number] Care Team Assistant: Harir Lot number: [id number] Device identifier: [id number] Device identifier type: [facility] As of 07/24/2024 Status: Implanted General Precautions (If Blank, None Found): Weight Bearing Restrictions: No Weight Bearing Restrictions: No Isolation Status: No active isolations Nutritional Status and in-house recommendations: Dietary Orders (From admission, onward) Start Ordered 09/06/24 1103 Adult Diet Restricted; Fat Controlled Diet effective now Question Answer Comment ([facility]) Diet type Restricted Fat / Sodium Restriction: Fat Controlled 09/06/24 1102 Anticoagulation Indication: INR: No results found for requested labs within last 30 days. Warfarin Administrations (last 168 hours) None Oxygen Status: O2 Therapy for the past 12 hrs: O2 Therapy 09/07/24 0413 None (Room air) 09/06/24 2355 None (Room air) Wound Care Instructions Wound 09/04/24 Incision Abdomen (Active) Dressing Status Leaking;Saturated;Changed 09/07/24 0830 Site Assessment Color appropriate for ethnicity 09/06/240 Shape & Pattern Circular 09/06/24 0822 Becca-wound Assessment Dry;Intact 09/07/24 0830 Dressing ABD;Gauze 09/07/24 0830 Closure Approximated;Wound glue 09/07/24 0830 Wound 09/04/24 Incision Abdomen (Active) Dressing Status Leaking;Saturated;Changed 09/07/24 0830 Site Assessment Color appropriate for ethnicity 09/06/24 2120 Shape & Pattern Circular 09/06/24 0822 Becca-wound Assessment Dry;Intact 09/07/24 0830 Dressing ABD;Gauze 09/07/24 0830 Closure Approximated;Wound glue 09/07/24 0830 Other Instructions Ambulatory referral to Home Health [...] 22 G Posterior;Right Hand (Active) Placement Date/Time: 09/05/24 170 Size (Gauge): 22 G Location Orientation: Posterior;Right [...] (75 mg total) by mouth daily 08/12/[address] (CYMBALTA) 60 mg capsule Take 1 capsule (60 mg total) by mouth every morning HYDROcodone-aceta minophen (NORCO) 5-325 mg per tabletIndications :Pain Take 1 tablet by mouth every 6 (six) hours as needed for pain 15 tablet 09/07/2024 isosorbide mononitrate ER (IMDUR) 30 mg 24 hr tablet Take 0.5 tablets (15 mg total) by mouth daily 08/12/2024 magnesium oxide (MAG-OX) 400 mg (241.3 mg [...] discharge from surgical perspective. Ever Anton MD, FACS [facility] Department of Surgery ACCS, Division of General Surgery 09/07/2024 12:34 PM * Cami Cruz, OT - 09/07/2024 8:53 AM CDT Occupational [...] goals OT Time Calculation OT Start Time 0739 OT Stop Time 0819 OT Time Calculation (min) 40 min Education: [...] independent. 09/05/24 09/12/24 -- * Isabella Bell Aleks, [employer] - 09/07/2024 8:24 AM CDT Gastroenterology Daily [...] Max: 100 % Most Recent : Vitals: 09/07/24 0819 BP: 128/70 Pulse: 62 Resp: 18 Temp: [...] Garcia MD - 09/06/2024 12:19 PM CDT [facility] Hospitalist Service Progress Note Chief complaint [...] 2) (HCC) Biventricular cardiac pacemaker in situ # Acute [...] on 07/[address] Mckee at the [facility]. Seen by Cardiology on 09/02, no active [...] health - will need to coordinate with [facility], as well as transportation back to [place] Plan for dc home tomorrow if arrangements [...] Pertinent History 74 y/o M admitted to [facility] for acute abdominal pain. Found to have inflammed gallbladder now s/p laparoscopic cholecystectomy on 09/04 and ERCP on 09/05. Pt with CABG 07/24and and pacer placement at [facility]. Other medical evaluation ongoing. 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 Ambulated in web project manager socks and noted with supination of feet [...] (from Physical Therapy) Active Problems Problem: PT [facility] Start Date: 09/06/24 Goal Start Date Expected End Date End Date PT LTG - [facility] 1 09/06/24 09/20/24 -- Goal Details: Pt to perform bed mobility with independence. Goal Start Date Expected End Date End Date PT LTG - [facility] 2 09/06/24 09/20/24 -- Goal Details: Pt to perform sit to/from stand and bed to/from chair with Wheeled walker or Least restrictive assistive device and Modified independent . Goal Start Date Expected End Date End Date PT LTG - [facility] 3 09/06/24 09/20/24 -- Goal Details: Pt to ambulate >/= 150 ft with Least restrictive assistive device and Modified independent Goal Start Date Expected End Date End Date PT [facility] - [facility] 4 09/06/24 09/20/24 -- Goal Details: Pt to ascend/descend 2 stairs with SBA x 1 and rails and/or assistive device as needed per home set up. Goal Start Date Expected End Date End Date PT [facility] - [facility] 5 09/06/24 09/20/24 -- Goal Details: Pt [...] 70 - 199 mg/dL Ever Anton MD, [facility] Department of Surgery ACCS, Division of General Surgery 09/06/2024 9:41 AM * Clarissa Beckham, [employer] - 09/06/2024 9:25 AM CDT Gastroenterology Daily [...] 1302 09/05/24 0841 09/05/24 0527 09/04/24 0752 09/04/2429 09/04/24 0001 09/03/24632 SODIUM mmol/L -- -- -- 139 -- [...] NP 09/06/2024 This note was transcribed using [employer] Speech Recognition software. As a result, there may be unintended grammar and spelling errors. Every attempt is made to have correct dictation. If there are any questions or major errors, please contact me. Cosigned by John Pink MD at 09/06/2024 7:26 PM CDT * Giovanny Garcia MD - 09/05/2024 1:45 PM CDT [facility] Hospitalist Service Progress Note Chief complaint [...] 2) (HCC) Biventricular cardiac pacemaker in situ # Acute [...] Pulse: 74 73 79 77 Resp: 20 18 18 Temp: 36.7 ??C (98 [...] 21* -- 21* ANIONGAP mmol/L 12 11 -- 13 BUN SERUM mg/dL 10 18 13 -- 14 CREATININE mg/dL 0.83 0.81 [...] 0527 09/05/24 0429 09/04/24 2346 09/04/24201109/04/24 1533 09/04/24 1237 09/04/24 0752 09/04/24 0529 [...] was scheduled to begin cardiac rehab at [facility] sometime this week.) Care plan discussed with [...] the resident or JAMAL. Theo Rick MD graduate teaching associate Section of Acute and Critical Care Surgery [facility] * Candi Valdivia, PT [...] Patient Name: Abiel Fink : 1950 Room/Bed: [place] [address]/[address] Insurance: [place] Progress Note It Technician: CAMRON Judge Date: 09/05/2024 Referring Diagnosis for Cardiac Rehab - s/p CABG x 3, CHF 26% Education Provided Explained my role as a Cardiac Rehab Navigator (CRN). Provided Cardiac Rehab education to patient. Family was not present. Patient was provided with Cardiac Rehab education folder as well as a [facility] Heart Education booklet. Risk Factors: DM, HLD, [...] fats)and exercise. Advised patient to consult their drug inspector, nurse, and/or physician if they have any questions about their diet/nutrition. Cardiac Rehab: Gave patient options of facilities for Outpatient Cardiac Rehab (OCR) in their community. Explained OCR program. Patient expressed knowledge towards local OCR program - patient prefers [facility]. I anticipate no barriers for patient to [...] working towards eventually trying to reach the [place] [employer] recommendations in regards to exercise: [...] when it would be appropriate to call Ophthalmic Technician Apprentice's office, go to the ER, or call 911. Insurance Coverage: Briefly explained general insurance coverage for OCR, but assured patient that OCR facility will usually call insurance and inform patient of more of an approximate coverage. Post-Discharge: Explained process between discharge from hospital, and getting set up in an OCR program - follow upwith Ophthalmic Technician Apprentice, CRN follow up calls, OCR program contact. Conclusion Patient seems likely to participate in OCR. Reassured patient of importance and health care provider support of OCR. Patient verbalized understanding of education, and all questions were answered to the best of my ability. Will complete order for OCR to be sent to Ophthalmic Technician Apprentice. Thank you for allowing us to special education educational assistant in the care of this patient, please don't hesitate to contact the Cardiac Rehab Navigator office with any questions: [phone]. * Iggy Wu, OT - 09/05/2024 8:02 AM CDT Occupational Therapy Evaluation 09/05/24 0637 General Chart Reviewed Yes Session Type Evaluation OT Received On 09/05/24 Safe Environment Arm band checked;Patient found in supine Subjective Comment Just so painful. Additional Pertinent History 74 y/o M admitted to [facility] for acute abdominal pain. Found to have inflammed gallbladder now s/p cholycystectomy on 09/04. Pt also with noted liver sludge and ERCP plannedfor today. Of note, pt with CABG and and pacer placement at [facility] on 08/06. Other medical evaluation ongoing. Medical [...] cane at baseline. Prior Function Level of [place] Independent with ADLs;Independent functional transfers;Independent with ambulation;Independent with homemaking with ambulation Lives With Son Receives Help From Family (Son-->available as needed) Driving Yes ( whenever I can with my heart srugery. 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 Prior Function Comments Pt reports being fully independent prior to admission. CABG on 08/06 at [facility] with pacer placement. Grooming Grooming: Where assessed Chair Grooming: Level of assistance Standby Assist LE Dressing LE Dressing: Level of assistance Minimum Assist LE Dressing: Assistance with Don/doff L sock;Don/doff R sock Pain Assessment Pain Assessment 0-10 Pain Score 10 - Worst possible pain (Rest 0, movement 10.) Pain Location Flank Pain Orientation Right Clinical Progression (Post Pain 10/) Pain Interventions RN Notified Activity Tolerance Endurance [...] was scheduled to begin cardiac rehab at [place] sometime this week.) OT Frequency during current [...] Daily Progress 09/01/2024 Juan Retana MD Abiel Gomes Aleks 74 y.o. Patient is a 74 y.o. male with a PMHx asthma, DM, hiatal hernia, HTN, sleep apnea, CAD with bradycardia, status post CABG x3 on 07/24, complete heart block s/p PPM on 08/04 is transferred from a [facility] for acute cholecystitis given recent CABG. General [...] PRN, Jose Enriquez MD, 650 mg at 09/03/24 2242 albuterol HFA (PROVENTIL HFA,VENTOLIN HFA,PROAIR HFA) 90 [...] 15 mg, 15 mg, oral, Daily, Kyrie Tcuker MD, 15 mg at 09/04/24 0918 Lactated [...] flush 0.5-20 mL, 0.5-20 mL, intra-catheter, Q8H Zoe STEVENS Rahul S., MD, 10 mL at 09/03/24 1402 sodium chloride 0.9% flush 0.5-20 mL, 0.5-20 mL, intra-catheter, PRNZoe Rahul S., MD sodium chloride 0.9% flush 0.5-20 mL, 0.5-20 mL, intra-catheter, Q8H Garrett STEVENS Juletta, MD, 10 mL at 09/02/24 1323 sodium chloride 0.9% flush 0.5-20 mL, 0.5-20 mL, intra-catheter, PRN, Kyrie Tucker MD, 10 mL at 09/03/24 0138 sodium chloride 0.9% flush 0.5-20 mL, 0.5-20 mL, intra-catheter, PRDavid Ramirez Asad S., MD OBJECTIVE BP 145/75 (BP Location: Right [...] joint swelling or tenderness,no limitation of movement. ENVIRONMENTAL TECHNICIAN: A and O x 3, speech is [...] calcified coronary lesion Complete heart block (CMS/HCC) ([facility]) DM2 (diabetes mellitus, type 2) ([facility]) Biventricular cardiac pacemaker in situ ASSESSMENT / [...] statins and Coreg Complete heart block (CMS/HCC) ([facility]) Status post permanent pacemaker implantation on 08/04 DM2 (diabetes mellitus, type 2) ([facility]) Holding oral hypoglycemics. Continue SSI. These fluid [...] questions Discussed with care team Dr.Sarada Willem MD,[facility] I used a voice recognition software for dictation. This may alter words unintentionally * Deanna Bangura MD - 09/03/2024 11:04 AM CDT Hospitalist Daily Progress 09/01/2024 Juan Retana MD Abiel Fink 74 y.o. Reason for Hospitalization: RUQ abdominal [...] (RT), Kyrie Tucker MD, 2 puff at 09/02/242119 [Held by Provider] aspirin enteric coated tablet 81 mg, 81 mg, oral, Daily, Kyrie Tucker MD atorvastatin (LIPITOR) tablet 80 mg, 80 mg, oral, Daily, Kyrie Tucker MD, 80 mg at 09/03/24 08 bisacodyl EC (DULCOLAX EC) tablet 10 mg, 10 mg, oral, Daily PRN OR bisacodyL (DULCOLAX) suppository 10 mg, 10 mg, rectal, Daily PRN, Kyrie Tucker MD bumetanide (BUMEX) tablet 0.5 mg, 0.5 mg, oral, Daily, Kyrie Tucker MD, 0.5 mg at 09/03/24 08 Carrier Fluids for Secondary Infusion - 0.9% Sodium Chloride, 30 mL, intravenous, PRN, Jose Enriquez MD Carrier Fluids for Secondary Infusion - 0.9% Sodium Chloride, 30 mL, intravenous, PRN, Kyrie Tucker MD carvediloL (COREG) tablet 3.125 mg, 3.125 mg, oral, BID with meals (bkfst, dinner), Kyrie Tucker MD, 3.125 mg at 09/03/24 0819 [Held by Provider] DULoxetine DR (CYMBALTA) extended release capsule 60 mg, 60 mg, oral, QAM, Kyrie Tucker MD heparin 5,000 unit/mL injection 5,000 Units, 5,000 Units, subcutaneous, Q8H [facility], Kyrie Tucker MD, 5,000 Units at 09/03/24 0558 HYDROcodone-acetaminophen (NORCO) 5-325 mg per tablet 1 tablet, 1 tablet, oral, Q4H PRN, Josefa Bell MD, 1 tablet at 09/03/24 08 HYDROmorphone (PF) (DILAUDID) injection 0.2 mg, 0.2 mg, intravenous, Q6H PRN, Jasmin Reyna MD, 0.2 mg at 09/02/24 0530 isosorbide mononitrate ER (IMDUR) extended release tablet 15 mg, 15 mg, oral, Daily, Kyrie Tucker MD, 15 mg at 09/03/24 08 Lactated Ringer's (LR) infusion, 75 mL/hr, intravenous, [...] capsule 100 mg, 100 mg, oral, BID, Kyrei Tucker MD, 100 mg at 09/03/24 0819 sodium chloride 0.9% flush 0.5-20 mL, 0.5-20 mL, intra-catheter, Q8H HILDA, Jose Enriquez MD, 10 mL at 09/03/24 0620 sodium chloride 0.9% flush 0.5-20 mL, 0.5-20 mL, intra-catheter, PRN, Jose Enriquez MD sodium chloride 0.9% flush 0.5-20 mL, 0.5-20 mL, intra-catheter, Q8H Garrett STEVENS Juletta, MD, 10 mL at 09/02/24 1323 sodium [...] joint swelling or tenderness,no limitation of movement. 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 DM2 (diabetes mellitus, type 2) ([facility]) Holding oral hypoglycemics. Started on SSI. These [...] questions Discussed with care team Dr.Sarada Willem MD,FACP,[facility] I used a voice recognition software for dictation. This may alter words unintentionally * Sloan Yanez MD - 09/03/2024 8:13 AM CDT Images from the original note were not included. [facility] [address], [address] [place], [place], [address] [address] [facility] [address], [place] [address] Cardiology Electrophysiology Jv Saucedo, MD Matthew Villalba,, MD Richard Hammer, MD Iftikhar Chiang, MD Nba Tariq, MD Jamey Chaves, MD Preston Daley, MD Regino Rivera, MD Madai Porras, ENVIRONMENTAL TECHNICIAN Sylvester Cotton, MD Soheila Garza, ENVIRONMENTAL TECHNICIAN Oscar Amaya, MD Natalie Dave, [employer] Sloan Yanez, MD Kandace Edwards, [employer] Sherron Alexandra, [employer] Isaura Reveles, [employer] Richrad Rogers, PA Cardiology Daily Progress Note Patient Name: Abiel [...] no shortness of breath Objective OBJECTIVE: Vitals: 09/02/245 09/03/24 0019 09/03/24 0415 09/03/24 0802 BP: [...] injection 5,000 Units 5,000 Units subcutaneous Q8H HILDA isosorbide mononitrate ER (IMDUR) extended release tablet [...] 0.5-20 mL 0.5-20 mL intra-catheter Q8H HILDA Exam General: No apparent distress. Eyes: Sclerae [...] cardiovascular surgery # CABG x3 July 2024 [place] - CABG x3 on 07/24/2024,BURGESS to LAD, left radial to OM, SVG to PDA at [place] - no acute signs of ACS - No chest - elevated and flat troponin - unremarkable EKG with biventricular paced rhythm - sternal wound looks clean dry and intact - Based on history was progressing as expected, and was discharged to home from subacute rehab and tolerating activity well until abdominal pain started - planning on attending cardiac rehab at [place], via the [facility] - no further cardiac workup indicated at this time unless patient develops chest pain in which casewe will repeat EKG and cardiac enzymes - aspirin and Plavix currently on hold given possible need for abdominal procedures # ischemic cardiomyopathy - EF 26% last month after surgery At [place] - Moderate functional mitral regurgitation - appears well compensated at this time with no signs of volume overload - continue carvedilol 3.125 b.i.d. and isosorbide mononitrate 15 mg daily which was the only GDMT at discharge - will not attempt aggressive GDMT titration during acute cystitis episode # Complete heart block # SAFETY DEPOSIT CLERK D - [employer] SAFETY DEPOSIT CLERK D, due to complete heart block with [...] This note was dictated in part using M[employer] medical voice recognition software. Despite careful review of [...] him scheduled for today. Ever Anton MD, [facility] [employer] Department of Surgery ACCS, [...] complaints of pain. Was seen in [facility] and was diagnosed with cholecystitis. Patient was recently admitted to the hospital and discharged on 08/11/2024 status post CABG x3 on 07/24 and permanent pacemaker regular implantation on 08/04. Surgeon from [facility] did not agree to do the surgery recommended transferring patient to [place] given the recent CT surgery. Outside facility [...] infusion 75 mL/hr 75 mL/hr (09/01/24 1849) PRN Medications acetaminophen albuterol HFA bisacodyl EC [...] Rate: 92 bpm RR Interval: 650 msec TX Interval: 154 msec QRS Duration: 151 msec QT Interval: 406 msec QTC Interval: 456 msec P-R-T King: 37 - 267 - 106 degrees IMPRESSION: ELECTRONIC VENTRICULAR PACEMAKER ABNORMAL RHYTHM ECG Electronically Signed By: DEVICE CHECK - IN OFFICE Result Date: 08/15/2024 Narrative: Interpretation Summary: Battery and Leads (BL) Normal parameters noted on battery and lead(s) --- Estimated battery longevity 8.3 years. Presenting Rhythm (TX) Atrial Sensing-BiVentricularPacing (-BiVP) --- /BiVP 85 bpm. [...] -Given CHB and LVEF 26%, presented for SAFETY DEPOSIT CLERK-D 08/04/2024. 3) ICM -LVEF 40-50% pre op, [...] recorded. Images were taken in SHELL and MAORI views to ensure appropriate lead placement. The [...] device programming: - RA Lead (#5076 S/N [id number]): Sensing 2.5 mV, Pacing threshold 0.75 V at 0.4 ms, Imp 608 Ohm - RV Lead (#6935M-62 [id number]): Sensing 6.6 mV, Pacing threshold 0.75 V at 0.4 ms Imp 456 Ohm - LV Lead (#4798-88 S/N [id number]): Sensing NA mV, Pacing threshold 1.0 V at 0.4 ms, Imp 418 Ohm - Device: SAFETY DEPOSIT CLERK-D (Cobolt HF Quad #[id number] S/N [id number]), programmed DDD 60-130 BPM - Zones: VF> [...] days post-discharge Lucy Meyer MD Clinical Cardiac Bulb Assembler X-ray chest 2 views Result Date: 08/05/2024 [...] Hospital #:0 Date of : 1950 (M) Healthcare Administration Intern: Jojo Chapa RDCS Referring Physician: CALEB ELIZABETH MD Contrast Agent: 0.8 ml Optison Administered, (2.2 ml wasted). Contrast Administered by: STATISTICAL TECHNICIAN Supervised/Interpreted by: Eric Roberts MD Diagnosis: chf Location: [facility] Reason for test: Evaluate LV prior to [...] LV(ES): <32 LV EF: 26 % (Mod. Gooden's)(Normal: >=52%) LV Septum: 0.7 cm (Normal: <1.0 cm) Wall Motion Scoring (1=Normal 2=Hypo 3=Akinetic 4=Dyskin./Aneurysm 0=Not visualized) Parasternal Long King:MAS=2 BAS=2 MIL=2 LORNE=2 Parasternal Short King:MAS=2 MIS=2 NE=2 MIL=2 MAL=2 MA=2 Apical 4 Chambers:=2 MIS=2 BIS=2 BAL=2 MAL=2 AL=2 AC=2 Apical 2 Chambers:AI=2 NE=2 BI=2 BA=2 MA=2 AA=2 AC=2 LV Global Longitudinal Strain: RV Global Longitudinal Strain: LV Function: Severe Global reduction in LV Ejection Fraction (EF<30%); EF via modified Gooden's. (NOTE: If patient has irreversibleLV Cardiac Dysfunction with EF<30%, they are at risk for Sudden Cardiac .) RV Function: Normal Septal Motion: paradoxic Pericardial Effusion: none seen Atrial Septum: Normal DOPPLER/COLOR FLOW DOPPLER RESULTS: Diastolic Function: indeterminate Tricuspid Valve: mild TV regurgitation Pulmonic Valve: Mild TX AV Regurgitation: Mid AR AV Stenosis: AV Area: cm2 AV Pressure Gradient (mmHg): Mean: 0, Peak:0 MV Regurgitation: Mod MR MV Stenosis: MV Area: cm2 MV Pressure Gradient (mmHg): Mean: 0 MV ERO: cm Regurg. Vol.: ml/beat Regurg. Frac.: % PA Pressure: 30-35 mmHg DOPPLER/COLOR FOLOW DOPPLER COMMENTS: Mid AR, Mod MR,mild TV regurgitation, Mild TX. Diastolic function: indeterminate CONTRAST: 0.8 ml Optison Administered, (2.2 ml wasted). ----- SUMMARY: Technically difficult study. Midly enlagred LV size and decreased systolic function with LVEF 26%. Paradoxical septum wallmotion abnormality Likely normal RV fucntion. LA is moderately dilated. Mod MR. Trace pericardial effusion. No previous study for the comparison. Confirmed on 08/03/2024 - 16:04:01 by Eric Roberts MD By signing this report, the attending burglar alarm assembler certifies that he or she has personally supervised and interpreted the echocardiogram and has reviewed and or edited and agrees with the written comments contained within the report. ASSESSMENT & PLAN Principal Problem: Acute cholecystitis Active Problems: Coronary artery disease due to calcified coronary lesion Complete heart block (CMS/HCC) ([facility]) DM2 (diabetes mellitus, type 2) ([facility]) # RUQ ultrasound for further evaluation as [...] complaints of pain. Was seen in [facility] and was diagnosed with cholecystitis. Patient was recently admitted to the hospital and discharged on 08/11/2024 status post CABG x3 on 07/24 and permanent pacemaker regular implantation on 08/04. Surgeon from [facility] did not agree to do the surgery recommended transferring patient to [place] given the recent CT surgery. Outside facility [...] (LR) infusion 75 mL/hr 75 mL/hr (09/02/24 0604) sodium chloride 0.9% infusion 75 mL/hr 75 [...] edema. DIAGNOSTICS Recent Labs Lab Units 09/02/24 06 WBC K/cumm 5.8 HEMOGLOBIN g/dL 7.9* HEMATOCRIT % 27.3* PLATELETS K/cumm 186 Recent Labs Lab Units 09/02/24 0609/01/242112 SODIUM mmol/L 140 138 POTASSIUM PLASMA mmol/L [...] Rate: 92 bpm RR Interval: 650 msec TX Interval: 154 msec QRS Duration: 151 msec QT Interval: 406 msec QTC Interval: 456 msec P-R-T King: 37 - 267 - 106 degrees IMPRESSION: ELECTRONIC VENTRICULAR PACEMAKER ABNORMAL RHYTHM ECG Electronically Signed By: DEVICE CHECK - IN OFFICE Result Date: 08/15/2024 Narrative: Interpretation Summary: Battery and Leads (BL) Normal parameters noted on battery and lead(s) --- Estimated battery longevity 8.3 years. Presenting Rhythm (TX) Atrial Sensing-BiVentricularPacing (-BiVP) --- /BiVP 85 bpm. [...] -Given CHB and LVEF 26%, presented for SAFETY DEPOSIT CLERK-D 08/04/2024. 3) ICM -LVEF 40-50% pre op, [...] recorded. Images were taken in SHELL and MAORI views to ensure appropriate lead placement. The [...] device programming: - RA Lead (#5076 S/N [id number]): Sensing 2.5 mV, Pacing threshold 0.75 V at 0.4 ms, Imp 608 Ohm - RV Lead (#6935M-62 [id number]): Sensing 6.6 mV, Pacing threshold 0.75 V at 0.4 ms Imp 456 Ohm - LV Lead (#4798-88 S/N [id number]): Sensing NA mV, Pacing threshold 1.0 V at 0.4 ms, Imp 418 Ohm - Device: SAFETY DEPOSIT CLERK-D (Cobolt HF Quad #[id number] S/N [id number]), programmed DDD 60-130 BPM - Zones: VF> [...] days post-discharge Lucy Meyer MD Clinical Cardiac Bulb Assembler X-ray chest 2 views Result Date: 08/05/2024 [...] Hospital #:0 Date of : 1950 (M) Healthcare Administration Intern: Jojo Chapa RDCS Referring Physician: CALEB ELIZABETH MD Contrast Agent: 0.8 ml Optison Administered, (2.2 ml wasted). Contrast Administered by: STATISTICAL TECHNICIAN Supervised/Interpreted by: Eric Roberts MD Diagnosis: chf Location: [facility] Reason for test: Evaluate LV prior to [...] 2=Hypo 3=Akinetic 4=Dyskin./Aneurysm 0=Not visualized) Parasternal Long King:MAS=2 BAS=2 MIL=2 LORNE=2 Parasternal Short King:MAS=2 MIS=2 NE=2MIL=2 MAL=2 MA=2 Apical 4 Chambers:=2 MIS=2 BIS=2 BAL=2 MAL=2 AL=2 AC=2 Apical 2 Chambers:AI=2 NE=2 BI=2 BA=2 MA=2 AA=2 AC=2 LV Global [...] Valve: mild TV regurgitation Pulmonic Valve: Mild TX AV Regurgitation: Mid AR AV Stenosis: AV Area: cm2 AV Pressure Gradient (mmHg): Mean: 0, Peak:0 MV Regurgitation:Mod MR MV Stenosis: MV Area: cm2 MV Pressure Gradient (mmHg): Mean: 0 MV ERO: cm Regurg. Vol.: ml/beat Regurg. Frac.: % PA Pressure: 30-35 mmHg DOPPLER/COLOR FOLOW DOPPLER COMMENTS: Mid AR, Mod MR, mild TV regurgitation, Mild TX. Diastolic function: indeterminate CONTRAST: 0.8 ml Optison [...] MD By signing this report, the attending burglar alarm assembler certifiesthat he or she has personally supervised and interpreted the echocardiogram and has reviewed and or edited and agrees with the written comments contained within the report. ASSESSMENT & PLAN Principal Problem: Acute cholecystitis Active Problems: Coronary artery disease due to calcified coronary lesion Complete heart block (CMS/HCC) ([facility]) DM2 (diabetes mellitus, type 2) ([facility]) # RUQ ultrasound for further evaluation as CBC normal ABX Cardiology consult in lieu of elevated troponins and unsure of operative risk due to recent CABG Will follow Care plan discussed with the patient. Total time reviewing above and examining the patient 45 mintues Momo Epstein MD 09/02/2024 10:22 AM * Kyrie Tucker MD - 09/02/2024 6:16 AM CDT History and Physical Date of Service: 09/02/2024 Primary Care Physician: Juan Retana MD [phone] SUBJECTIVE: Patient is a 74 y.o. male with a PMHx asthma, diabetes, hiatal hernia, hypertension, sleep apnea, coronary artery disease with bradycardia, complete heart block, who presents to the ED with a chief complaint of abdominal pain. HPI: Patient presented to outside facility hospital with complaints of pain. Was seen in [facility] and was diagnosed with cholecystitis. Patient was recently admitted to the hospital and discharged on 08/11/2024 status post CABG x3 on 07/24 and permanent pacemaker regular implantation on 08/04. Surgeon from [facility] did not agree to do the surgery recommended transferring patient to [place] given the recent CT surgery. Outside facility [...] Hawkins was consulted, patient was transferred to [facility] further management. Patient is currently on [...] in HPI. OBJECTIVE: Vitals: Arrival Vitals Temp 09/01/240 37.2 ??C (99 ??F) Pulse 09/01/24 2006 94 Resp 09/01/240 18 BP 09/01/241839 142/80 SpO2 09/01/241839 97 [...] Estimated battery longevity 8.3 years. Presenting Rhythm (TX) Atrial Sensing-BiVentricularPacing (-BiVP) --- /BiVP 85 bpm. [...] -Given CHB and LVEF 26%, presented for SAFETY DEPOSIT CLERK-D 08/04/2024. 3) ICM -LVEF 40-50% pre op, [...] recorded. Images were taken in SHELL and MAORI views to ensure appropriate lead placement. The [...] sheaths were split, and the leads were securedto the fascia with Ethibond ties. The pocket was flushed with antibiotic solution and hemostasis was assured. Floseal was applied. The generator was connected to the leads and placed inside the pocket. Antibiotic envelope was used.The wound was closed with 3 running layers of absorbable suture, andsteristrips were applied. Defibrillator function testing was deferred. Following the procedure, thepatient was taken to the recovery area in stable condition. A chest x-ray was obtained in the holding area. Lead parameters and device programming: - RA Lead (#5076 S/N [id number]): Sensing 2.5 mV, Pacing threshold 0.75 V at 0.4 ms, Imp 608 Ohm - RV Lead (#6935M-62 [id number]): Sensing 6.6 mV, Pacing threshold 0.75 V at 0.4 ms Imp 456 Ohm - LV Lead (#4798-88 S/N [id number]): Sensing NA mV, Pacing threshold 1.0 V at 0.4 ms, Imp 418 Ohm - Device: SAFETY DEPOSIT CLERK-D (Cobolt HF Quad #[id number] S/N [id number]), programmed DDD 60-130 BPM - Zones: VF> 200BPM ATP during charge then shocks VT monitor >171 BPM Conclusions: 1. Successful placement of a biventricular pacing defibrillator 2. Coronary sinus venography 3. Subclavian venography Recommendations: 1. Admit to same hospital bed 2. Portable chest x-rayin holding area. PA/lateral chest x-ray in the morning. 3. IV antibiotics while the patient is admitted, oral antibiotics for one week on discharge. 4. Device interrogation in the morning. 5. Follow-up will be arranged in the [facility] 7-10 days post-discharge Lucy Meyer MD Clinical Cardiac Bulb Assembler X-ray chest 2 views Result Date: 08/05/2024 [...] test: 08/03/2024 Type of test: Limited TTE [facility] #:0 Date of : 1950 (M) Healthcare Administration Intern: Jojo Chapa ROSEY Referring Physician: CALEB ELIZABETH MD Contrast Agent: 0.8 ml Optison Administered, (2.2 ml wasted). Contrast Administered by: STATISTICAL TECHNICIAN Supervised/Interpreted by: Eric Roberts MD Diagnosis: chf Location: [facility] Reason for test: Evaluate LV prior to [...] LV(ES): <32 LV EF: 26 % (Mod. Gooden's)(Normal: >=52%) LV Septum: 0.7 cm (Normal: <1.0 cm) Wall Motion Scoring (1=Normal 2=Hypo 3=Akinetic 4=Dyskin./Aneurysm 0=Not visualized) Parasternal Long King:MAS=2 BAS=2 MIL=2 LORNE=2 Parasternal Short King:MAS=2 MIS=2 NE=2 MIL=2 MAL=2 MA=2 Apical 4 Chambers:=2 MIS=2 BIS=2 BAL=2 MAL=2 AL=2 AC=2 Apical 2 Chambers:AI=2 NE=2 BI=2 BA=2 MA=2 AA=2 AC=2 LV Global Longitudinal Strain: RV Global Longitudinal Strain: LV Function: Severe Global reduction in LV Ejection Fraction (EF<30%); EF via modified Gooden's. (NOTE: If patient has irreversibleLV Cardiac Dysfunction with EF<30%, they are at risk for Sudden Cardiac .) RV Function: Normal Septal Motion: paradoxic Pericardial Effusion: none seen Atrial Septum: Normal DOPPLER/COLOR FLOW DOPPLER RESULTS: Diastolic Function: indeterminate Tricuspid Valve: mild TV regurgitation Pulmonic Valve: Mild TX AV Regurgitation: Mid AR AV Stenosis: AV Area: cm2 AV Pressure Gradient (mmHg): Mean: 0, Peak:0 MV Regurgitation: Mod MR MV Stenosis: MV Area: cm2 MV Pressure Gradient (mmHg): Mean: 0 MV ERO: cm Regurg. Vol.: ml/beat Regurg. Frac.: % PA Pressure: 30-35 mmHg DOPPLER/COLOR FOLOW DOPPLER COMMENTS: Mid AR, Mod MR,mild TV regurgitation, Mild TX. Diastolic function: indeterminate CONTRAST: 0.8 ml Optison Administered, (2.2 ml wasted). ----- SUMMARY: Technically difficult study. Midly enlagred LV size and decreased systolic function with LVEF 26%. Paradoxical septum wallmotion abnormality Likely normal RV fucntion. LA is moderately dilated. Mod MR. Trace pericardial effusion. No previous study for the comparison. Confirmed on 08/03/2024 - 16:04:01 by Eric Roberts MD By signing this report, the attending burglar alarm assembler certifies that he or she has personally [...] isosorbide, and Coreg Complete heart block (CMS/HCC) ([facility]) Status post permanent pacemaker implantation. DM2 (diabetes mellitus, type 2) ([facility]) Holding oral hypoglycemics. Started on SSI. These fluid and electrolyte abnormalities are being treated, evaluated or monitored: Hypomagnesemia--replace and monitor Principal Problem: Acute cholecystitis Active Problems: Coronary artery disease due to calcified coronary lesion Complete heart block (CMS/HCC) ([facility]) DM2 (diabetes mellitus, type 2) ([facility]) Full Code The patient is asked to [...] 09/05/2024 2:20 PM Admit Type: Inpatient Room: [facility] Date of : 1950 Instrument Name: [id number] Gender: Male Note Status: Finalized Procedure: ERCP Indications: Bile leak Providers: Milton Mclean M.D. Referring MD: Juan Connolly M.D. Medicines: Monitored Anesthesia Care, Indomethacin 100 mg TX Complications: No immediate complications. Estimated Blood Loss: [...] patient tolerated the procedure well. Findings: A retoucher film of the abdomen was obtained. One [...] this encounter Consult Notes * Clarissa Beckham, NAVAL [employer] - 09/05/2024 8:07 AM CDT Gastroenterology Consult [...] placement and the need for outpatient removal. -NPO Clarissa Beckham NP 09/05/2024 This note was transcribed using [employer] Speech Recognition software. As a result, there [...] plan of care as documented by the NAVAL AIRCREWMAN.. * Momo Epstein MD - 09/02/2024 10:21 [...] complaints of pain. Was seen in [facility] and was diagnosed with cholecystitis. Patient was recently admitted to the hospital and discharged on 08/11/2024 status post CABG x3 on 07/24 and permanent pacemaker regular implantation on 08/04. Surgeon from [facility] did not agree to do the surgery recommended transferring patient to [place] given the recent CT surgery. Outside facility [...] 0.9% sodium chloride 0.9% VITAL SIGNS Vitals: 09/01/24 2006 09/02/24 0006 09/02/24 0448 [...] Rate: 92 bpm RR Interval: 650 msec TX Interval: 154 msec QRS Duration: 151 msec QT Interval: 406 msec QTC Interval: 456 msec P-R-T King: 37 - 267 - 106 degrees IMPRESSION: ELECTRONIC VENTRICULAR PACEMAKER ABNORMAL RHYTHM ECG Electronically Signed By: DEVICE CHECK - IN OFFICE Result Date: 08/15/2024 Narrative: Interpretation Summary: Battery and Leads (BL) Normal parameters noted on battery and lead(s) --- Estimated battery longevity 8.3 years. Presenting Rhythm (TX) Atrial Sensing-BiVentricularPacing (-BiVP) --- /BiVP 85 bpm. [...] -Given CHB and LVEF 26%, presented for SAFETY DEPOSIT CLERK-D 08/04/2024. 3) ICM -LVEF 40-50% pre op, [...] recorded. Images were taken in SHELL and MAORI views to ensure appropriate lead placement. The [...] device programming: - RA Lead (#5076 S/N [id number]): Sensing 2.5 mV, Pacing threshold 0.75 V at 0.4 ms, Imp 608 Ohm - RV Lead (#6935M-62 [id number]): Sensing 6.6 mV, Pacing threshold 0.75 V at 0.4 ms Imp 456 Ohm - LV Lead (#4798-88 S/N [id number]): Sensing NA mV, Pacing threshold 1.0 V at 0.4 ms, Imp 418 Ohm - Device: SAFETY DEPOSIT CLERK-D ([employer]ob[employer] HF Quad #[id number] S/N [id number]), programmed DDD 60-130 BPM - Zones: VF> [...] days post-discharge Lucy Meyer MD Clinical Cardiac Bulb Assembler X-ray chest 2 views Result Date: 08/05/2024 [...] test: 08/03/2024 Type of test: Limited TTE [facility] #:0 Date of : 1950 (M) Healthcare Administration Intern: Jojo Chapa RDCS Referring Physician: CALEB ELIZABETH MD Contrast Agent: 0.8 ml Optison Administered, (2.2 ml wasted). Contrast Administered by: STATISTICAL TECHNICIAN Supervised/Interpreted by: Eric Roberts MD Diagnosis: chf Location: [facility] Reason for test: Evaluate LV prior to [...] 2=Hypo 3=Akinetic 4=Dyskin./Aneurysm 0=Not visualized) Parasternal Long King:MAS=2 BAS=2 MIL=2 LORNE=2 Parasternal Short King:MAS=2 MIS=2 NE=2 MIL=2 MAL=2 MA=2 Apical 4 Chambers:=2 MIS=2 BIS=2 BAL=2 MAL=2 AL=2 AC=2 Apical 2 Chambers:AI=2 NE=2 BI=2 BA=2 MA=2 AA=2 AC=2 LV Global [...] Valve: mild TV regurgitation Pulmonic Valve: Mild TX AV Regurgitation: Mid AR AV Stenosis: AV Area: cm2 AV Pressure Gradient (mmHg): Mean: 0, Peak:0 MV Regurgitation: Mod MR MV Stenosis: MV Area: cm2 MV Pressure Gradient (mmHg): Mean: 0 MV ERO: cm Regurg. Vol.: ml/beat Regurg. Frac.: % PA Pressure: 30-35 mmHg DOPPLER/COLOR FOLOW DOPPLER COMMENTS: Mid AR, Mod MR, mild TV regurgitation, Mild TX. Diastolic function: indeterminate CONTRAST: 0.8 ml Optison [...] MD By signing this report, the attending burglar alarm assembler certifies that he or she has personally supervised and interpreted the echocardiogram and has reviewed and or edited and agrees with the written comments contained within the report. ASSESSMENT & PLAN Principal Problem: Acute cholecystitis Active Problems: Coronary artery disease due to calcified coronary lesion Complete heart block (CMS/HCC) ([facility]) DM2 (diabetes mellitus, type 2) ([facility]) # RUQ ultrasound for further evaluation as [...] from the original note were not included. [facility] [address], [address] [place], [place], [address] [facility], [place] [address] Cardiology Electrophysiology Jv Saucedo, MD Matthew Villalba,, MD Richard Hammer, MD Iftikhar Chiang, MD Nba Tariq, MD Jamey Chaves, MD Preston Daley, MD Regino Rivera, MD Madai Porras, ENVIRONMENTAL TECHNICIAN Sylvester Cotton, MD Soheila Garza, ENVIRONMENTAL TECHNICIAN Oscar Amaya, MD Natalie Dave, [employer] Sloan Yanez, MD Kandace Edwards, [employer] Sherron Alexandra, [employer] Isaura Reveles, [employer]WMAN Richard Rogers, PA Cardiology Consultation Note Patient Name: Abiel Fink Date of : 1950 Primary Physician: Juan Retana MD Requesting Physician: @REQUEST@ Admission Date: 09/01/2024 Length of Stay: 1 Chief Complaint No chief complaint on file. HPI Abiel Fink is a 74 y.o. male seen in consultation for preoperative cardiac risk assessment,medication optimization in the setting of recent CABG Patient presented to [facility] and diagnosed with acute cholecystitis recently Had very recent CABG x3 about 3 weeks ago on 07/24 along with permanent pacemaker placement during that admission Recently underwent CABG x3 on 07/24/2024,BURGESS to LAD, left radial to OM, SVG to PDA at [place] alongwith [employer] SAFETY DEPOSIT CLERK D, due to complete heart block with [...] AV block and electrophysiology recommended placementof a SAFETY DEPOSIT CLERK D. Reviewed postoperative echo persistently severe global dysfunction with an EF that was estimated ataround 26%, probably normal or near normal RV function, dilated left atrium with moderate residual mitral regurgitation, trace pericardial effusion and and mildly elevated pulmonary pressures of around 35 mmHg. Reviewed labs from [place], minimally elevated and flat troponin I assay [...] ??F) (Oral) Resp 20 SpO2 98% Vitals: 09/01/24200509/02/24 0006 09/02/24 0448 09/02/24 0810 [...] cardiovascular surgery # CABG x3 July 2024 [place] - CABG x3 on 07/24/2024,BURGESS to LAD, left radial to OM, SVG to PDA at [place] - no acute signs of ACS - No chest - elevated and flat troponin - unremarkable EKG with biventricular paced rhythm - sternal wound looks clean dry and intact - Based on history was progressing as expected, and was discharged to home from subacute rehab and tolerating activity well until abdominal pain started - planning on attending cardiac rehab at [place], via the [facility] - no further cardiac workup indicated at this time unless patient develops chest pain in which casewe will repeat EKG and cardiac enzymes - aspirin and Plavix currently on hold given possible need for abdominal procedures # ischemic cardiomyopathy - EF 26% last month after surgery At [place] - Moderate functional mitral regurgitation - appears well compensated at this time with no signs of volume overload - continue carvedilol 3.125 b.i.d. and isosorbide mononitrate 15 mg daily which was the only GDMT at discharge - will not attempt aggressive GDMT titration during acute cystitis episode # Complete heart block # SAFETY DEPOSIT CLERK D - [employer] SAFETY DEPOSIT CLERK D, due to complete heart block with [...] This note was dictated in part using [employer] voice recognition software. Despite careful review of this note, variances in spelling and vocabulary are possible and unintentional. documented in this encounter Miscellaneous Notes * Plan of Care - Cathi Reyes RN - 09/07/2024 3:05 PM CDT Goals: Clinical Goals for the Shift: Remove CINTIA drain, go home Summary: 0700: BSSR received from Jocelyne. Robert washburn, RN introduced self to pt. [...] Home Care Services Name and Phone Number [place] to set up with HH Discharge Additional Assistance Does the patient need discharge transport arranged? Yes Type of Transportation Ambulance/EMS Has discharge transport been arranged? Yes Details of Transportation [place] set up D/C Transport Anticipated Date 09/07/24 [...] over the last shift: PT s/p ERCP, CINTIA drain inplaced, kept on negative pressure at times for suction, noted leaking on site, dressing changed 2x. Pt denies any pain/discomfort, SOB.Pt needs met and attended. Kept self-rested. * Plan of Care - Veronica Moreno, NAVIN - 09/05/2024 2:53 PM CDT Problem: Medication [...] Reeves RN - 09/05/2024 2:11 PM CDT HOMA Initial Assessment Interview Note Information Obtained From: Patient (09/05/24 9474) Admission Source: transfer from [facility], from home with son Impression: Acute Cholecystitis Plan Includes: General surgery consult, lap miladys, ERCP; patient plans to return home after DC Primary Source of Transportation: Does the patient need discharge transport arranged?: Yes (son doesn't drive- ?friend to bead picker) Has discharge transport been arranged?: No (09/05/241407) Health Insurance Coverage: [place] Prescription Coverage: [place] Pharmacy: Alverto Gutierrez [facility] Pharmacy - Fax or Paper Script Only - send e-rx to [facility] [address] [address] [address] [facility] [address] [place], [place] - [address] [facility] [facility] [address] [facility] [address] Primary Care Provider: Juan Retana MD Prior [...] were you homeless or living in a long-term (including now)?: No (09/05/241410) Utilities: No, (09/05/241410) Social Connections: In a typical week, how many times do you talk on the phone with family, friends, or neighbors?: More than three times a week How often do you get together with friends or relatives?: Once a week How often do you attend mormon or tenriism services?: Never Do you belong to any clubs or organizations such as mormon groups, unions, fraternal or athletic groups, or school groups?: No How often do you attend meetings of the clubs or organizations you belong to?: Never Are you , , , , never , or living with a partner?: (09/05/24 141) Food Insecurity: Within the past 12 months, [...] Collaboration with Patient, Provider, Direct Care Nurse, Dowel Setting Machine Operator, and other members of theHealth Care Team to assure needed interventions completed. 2. Return patient to optimal level of self-care post discharge. 3. Dye House Helper will follow for Discharge Planning - interventions [...] plan will improve Outcome: Progressing Flowsheets (Taken 09/04/20241803) Ability to develop a pain control plan [...] Operative Note SURGEON Ever Anton MD, FACS PROCEDURE ANALYST Director Non Profit: Katerine Medina RN Scrub: Keyana Chow RN PIPE AND TANK FABRICATOR: Park Villarreal RN PREOPERATIVE DIAGNOSIS Acute cholecystitis secondary to cholelithiasis POSTOPERATIVE DIAGNOSIS Acute gangrenous perforated cholecystitis OPERATION Laparoscopic subtotal fenestrated cholecystectomy Citation- Jayme et al, Journal [employer] 222 (1): 89-96. November [...] I was immediately available. There was no residential mental health worker. Ever Anton MD, [facility] Department of Surgery ACCS, Division of General [...] meds Summary: npo after midnight for cholelcystectomy. Foster given this am for right abd pain. [...] complaints of pain. Was seen in [facility] and was diagnosed with cholecystitis. Patient was recently admitted to the hospital and discharged on 08/11/2024 status post CABG x3 on 07/24 and permanent pacemaker regular implantation on 08/04. Surgeon from [facility] did not agree to do the surgery recommended transferring patient to [place] given the recent CT surgery. Outside facility [...] Ringer's (LR) infusion 75 mL/hr 75 mL/hr (09/02/242210) sodium chloride 0.9% infusion 75 mL/hr 75 mL/hr (09/03/24 3825) acetaminophen albuterol HFA bisacodyl EC OR bisacodyL [...] Lab Units 09/03/24 0633 09/02/24 0938 09/02/24 0611 09/01/24 2113 SODIUM mmol/L 139 -- 140 138 [...] 0.7 0.8 Recent Labs Lab Units 09/03/24 0633 09/02/24 0611 09/01/24 2113 GLUCOSE mg/dL 92 100 110 Lab Results Component Value Date INR 1.44 (H) 07/24/2024 ECG 12 lead Result Date: 09/02/2024 Narrative: Vent Rate: 92 bpm RR Interval: 650 msec TX Interval: 154 msec QRS Duration: 151 msec QT Interval: 406 msec QTC Interval: 456 msec P-R-T King: 37 - 267 - 106 degrees IMPRESSION: ELECTRONIC VENTRICULAR PACEMAKER ABNORMAL RHYTHM ECG Electronically Signed By: DEVICE CHECK - IN OFFICE Result Date: 08/15/2024 Narrative: Interpretation Summary: Battery and Leads (BL) Normal parameters noted on battery and lead(s) --- Estimated battery longevity 8.3 years. Presenting Rhythm (TX) Atrial Sensing-BiVentricularPacing (-BiVP) --- /BiVP 85 bpm. [...] -Given CHB and LVEF 26%, presented for SAFETY DEPOSIT CLERK-D 08/04/2024. 3) ICM -LVEF 40-50% pre op, [...] recorded. Images were taken in SHELL and MAORI views to ensure appropriate lead placement. The [...] device programming: - RA Lead (#5076 S/N [id number]): Sensing 2.5 mV, Pacing threshold 0.75 V at 0.4 ms, Imp 608 Ohm - RV Lead (#6935M-62 [id number]): Sensing 6.6 mV, Pacing threshold 0.75 V at 0.4 ms Imp 456 Ohm - LV Lead (#4798-88 S/N [id number]): Sensing NA mV, Pacing threshold 1.0 V at 0.4 ms, Imp 418 Ohm - Device: SAFETY DEPOSIT CLERK-D ([employer] HF Quad #[id number] S/N [id number]), programmed DDD 60-130 BPM - Zones: VF> [...] days post-discharge Lucy Meyer MD Clinical Cardiac Bulb Assembler X-ray chest 2 views Result Date: 08/05/2024 [...] test: 08/03/2024 Type of test: Limited TTE [facility] #:0 Date of : 1950 (M) Healthcare Administration Intern: Jojo Chapa [facility] Referring Physician: CALEB ELIZABETH MD Contrast Agent: 0.8 ml Optison Administered, (2.2 ml wasted). Contrast Administered by: STATISTICAL TECHNICIAN Supervised/Interpreted by: Eric Roberts MD Diagnosis: chf Location: [facility] Reason for test: Evaluate LV prior to [...] 2=Hypo 3=Akinetic 4=Dyskin./Aneurysm 0=Not visualized) Parasternal Long King:MAS=2 BAS=2 MIL=2 LORNE=2 Parasternal Short King:MAS=2 MIS=2 NE=2MIL=2 MAL=2 MA=2 Apical 4 Chambers:=2 MIS=2 BIS=2 BAL=2 MAL=2 AL=2 AC=2 Apical 2 Chambers:AI=2 NE=2 BI=2 BA=2 MA=2 AA=2 AC=2 LV Global [...] Valve: mild TV regurgitation Pulmonic Valve: Mild TX AV Regurgitation: Mid AR AV Stenosis: AV Area: cm2 AV Pressure Gradient (mmHg): Mean: 0, Peak:0 MV Regurgitation:Mod MR MV Stenosis: MV Area: cm2 MV Pressure Gradient (mmHg): Mean: 0 MV ERO: cm Regurg. Vol.: ml/beat Regurg. Frac.: % PA Pressure: 30-35 mmHg DOPPLER/COLOR FOLOW DOPPLER COMMENTS: Mid AR, Mod MR, mild TV regurgitation, Mild TX. Diastolic function: indeterminate CONTRAST: 0.8 ml Optison Administered, (2.2 ml wasted). ------- SUMMARY: Technically difficult study. George mcbrideagred LV size and decreased systolic function with LVEF 26%. Paradoxical septum wall motion abnormality Likely normal RV fucntion. LA is moderately dilated. Mod MR. Trace pericardial effusion. No previous study for the comparison. Confirmed on 08/03/2024 - 16:04:01 by Eric Roberts MD By signing this report, the attending burglar alarm assembler certifiesthat he or she has personally supervised and interpreted the echocardiogram and has reviewed and or edited and agrees with the written comments contained within the report. ASSESSMENT & PLAN Principal Problem: Acute cholecystitis Active Problems: Coronary artery disease with history of myocardial infarction without history of CABG Coronary artery disease due to calcified coronary lesion Complete heart block (CMS/HCC) ([facility]) DM2 (diabetes mellitus, type 2) ([facility]) Biventricular cardiac pacemaker in situ Long discussion [...] BLOOD CELLS Timed 09/04/2024 1:42 PM CDT LAPAROSCOPIC CHOLECYSTECTOMY 09/04/2024 1:16 PM [...] Results * eGFR (09/07/2024 6:20 AM CDT) [facility] eGFR 71 >=60 mL/min/1. 73 m2 Comment: [...] Mclean MD LAB BLOOD ORDERABLES Final Result [facility] [address] [place] [address] * Differential, auto (09/07/2024 6:20 AM CDT) Neutrophil abs 5.4 1.5 - 6.5 K/cumm Imm gran abs 0.1 0.0 - 0.1 K/cumm [facility] Lymphocyte abs 0.9 0.8 - 3.3 K/cumm [facility] Monocyte abs 0.4 0.2 - 0.8 K/cumm [facility] Eosinophil abs 0.0 0.0 - 0.5 K/cumm [facility] Basophil abs 0.0 0.0 - 0.1 K/cumm [facility] Neutrophil pct 78.4 % [facility] Comment: Interpretive Data Percent cell count reference ranges are not reported, since discordance with absolute values may lead to misinterpretation of CBC data. Current Interpretive Data was last revised on 2018. Imm gran pct 2.0 % [facility] Comment: Interpretive Data Percent cell count reference ranges are not reported, since discordance with absolute values may lead to misinterpretation of CBC data. Current Interpretive Data was last revised on 2018. Lymphocyte pct 12.8 % [facility] Comment: Interpretive Data Percent cell count reference ranges are not reported, since discordance with absolute values may lead to misinterpretation of CBC data. Current Interpretive Data was last revised on 2018. Monocyte pct 6.1 % [facility] Comment: Interpretive Data Percent cell count reference ranges are not reported, since discordance with absolute values may lead to misinterpretation of CBC data. Current Interpretive Data was last revised on 2018. Eosinophil pct 0.6 % [facility] Comment: Interpretive Data Percent cell count reference ranges are not reported, since discordance with absolute values may lead to misinterpretation of CBC data. Current Interpretive Data was last revised on 2018. Basophil pct 0.1 % [facility] Comment: Interpretive Data Percent cell count reference ranges are not reported, since discordance with absolute values may lead to misinterpretation of CBC data. Current Interpretive Data was last revised on 2018. Blood 09/07/2024 6:20 AM CDT 09/07/2024 6:38 AM CDT Milton Mclean MD LAB BLOOD ORDERABLES Final Result Performing Organization Address City/State/[facility] Co de Phone Number [facility] [address] [place] [address] * Phosphorus (09/07/2024 6:20 AM CDT) Phosphorus, pl 3.2 2.3 - 4.5 mg/dL Blood 09/07/2024 6:20 AM CDT 09/07/2024 6:24 AM CDT Milton Mclean MD LAB BLOOD ORDERABLES Final Result Performing Organization Address City/[facility]/ZIP Co de Phone Number [facility] [address] Department [place] [address] * Bilirubin, direct (09/07/2024 6:20 AM CDT) Pathologist [facility] Bilirubin, direct 0.2 0.1 - 0.3 mg/dL Blood 09/07/2024 6:20 AM CDT 09/07/2024 6:24 AM CDT Milton Mclean MD LAB BLOOD ORDERABLES Final Result Performing Organization Address [facility] Co de Phone Number [facility] [address] [place] [address] * (ABNORMAL) Comprehensive metabolic panel (09/07/2024 6:20 AM CDT) [facility] Sodium 135 135 - 145 mmol/L Potassium, pl 4.1 3.3 - 4.9 mmol/L [facility] Chloride 104 97 - 110 mmol/L [facility] CO2 19(L) 22 - 32 mmol/L [facility] Anion gap 12 2 - 15 mmol/L [facility] BUN 24 6 - 25 mg/dL [facility] Creatinine 1.11 0.80 - 1.30 mg/dL [facility] Glucose 111 70 - 199 mg/dL [facility] Comment: Interpretive Data Fasting glucose >/= [...] 2022. Calcium 7.6(L) 8.5 - 10.3 mg/dL [facility] Bilirubin, total 0.3 0.1 - 1.2 mg/dL [facility] Protein, pl 6.0(L) 6.5 - 8.5 g/dL [facility] Albumin 2.4(L) 3.5 - 5.0 g/dL [facility] Alk phos 156(H) 40 - 130 Units/L [facility] ALT 20 7 - 55 Units/L [facility] AST 38 10 - 50 Units/L [facility] Blood 09/07/2024 6:20 AM CDT 09/07/2024 6:24 AM CDT us Milton Mclean MD LAB BLOOD ORDERABLES Final Result [facility] [address] Department of Laboratories [place], [place] [id number] * (ABNORMAL) CBC with auto differential (09/07/2024 6:20 AM CDT) WBC 6.9 3.8 - 9.9 K/cumm Hgb 8.6(L) 13.0 - 17.5 g/dL [facility] Hct 29.5(L) 38.9 - 50.3 % [facility] Plt 173 150 - 400 K/cumm [facility] MPV 9.2 9.1 - 12.3 fL [facility] RBC 3.62(L) 4.30 - 5.80 M/cumm [facility] MCV 81.5 81.3 - 96.4 fL [facility] MCH 23.8(L) 27.1 - 33.3 pg [facility] MCHC 29.2(L) 32.3 - 35.7 g/dL [facility] RDW CV 17.2(H) 11.1 - 14.9 % [facility] RDW SD 50.4(H) 35.7 - 48.1 fL [facility] NRBC abs 0.02(H) 0.00 - 0.01 K/cumm [facility] Blood 09/07/2024 6:20 AM CDT 09/07/2024 6:38 AM CDT us Milton Mclean MD LAB BLOOD ORDERABLES Final Result Performing Organization Address [facility]/ZIP Co de Phone Number [facility] [address] [employer] [place], [place] [id number] * eGFR (09/06/2024 12:32 PM CDT) eGFR [...] ORDERABLES Final Res ult Performing Organization Address [facility]/ZIP Co de Phone Number [facility] [address] Department [address] [place], [place] [id number] * Phosphorus (09/06/2024 12:32 PM CDT) Phosphorus, pl 3.1 2.3 - 4.5 mg/dL Blood 09/06/2024 12:3 2 PM CDT 09/06/2024 12:43 PM CDT Ever Anton MD LAB BLOOD ORDERABLES Final Res ult Performing Organization Address [facility]/ZIP Co de Phone Number [facility] [address] Department [email or web address] [address] * Bilirubin, direct (09/06/2024 12:32 PM CDT) Bilirubin, direct 0.2 0.1 - 0.3 mg/dL Blood 09/06/2024 12:3 2 PM CDT 09/06/2024 12:43 PM CDT Ever Anton MD LAB BLOOD ORDERABLES Final Res ult Performing Organization Address [facility] Co de Phone Number [facility] [address] [email or web address] [address] * (ABNORMAL) Comprehensive metabolic panel (09/06/2024 12:32 PM CDT) Sodium 145 135 - 145 mmol/L Potassium, pl 3.6 3.3 - 4.9 mmol/L [facility] [facility] Chloride 107 97 - 110 mmol/L [facility] CO2 18(L) 22 - 32 mmol/L [facility] Anion gap 20(H) 2 - 15 mmol/L [facility] BUN 20 6 - 25 mg/dL [facility] Creatinine 1.09 0.80 - 1.30 mg/dL [facility] Glucose 123 70 - 199 mg/dL [facility] Comment: Interpretive Data Fasting glucose >/= [...] 2022. Calcium 7.4(L) 8.5 - 10.3 mg/dL [facility] Bilirubin, total 0.3 0.1 - 1.2 mg/dL [facility] Protein, pl 6.2(L) 6.5 - 8.5 g/dL [facility] Albumin 2.7(L) 3.5 - 5.0 g/dL [facility] Alk phos 145(H) 40 - 130 Units/L [facility] ALT 21 7 - 55 Units/L [facility] AST 35 10 - 50 Units/L [facility] Blood 09/06/2024 12:3 2 PM CDT 09/06/2024 12:43 PM CDT Ever Anton MD LAB BLOOD ORDERABLES Final Res ult [facility] [address] [place] [address] * (ABNORMAL) Differential, auto (09/06/2024 12:32 PM CDT) Neutrophil abs 4.9 1.5 - 6.5 K/cumm Imm gran abs 0.1 0.0 - 0.1 K/cumm [facility] Lymphocyte abs 0.6(L) 0.8 - 3.3 K/cumm [facility] Monocyte abs 0.4 0.2 - 0.8 K/cumm [facility] Eosinophil abs 0.0 0.0 - 0.5 K/cumm [facility] Basophil abs 0.0 0.0 - 0.1 K/cumm [facility] Neutrophil pct 81.5 % [facility] Comment: Interpretive Data Percent cell count reference ranges are not reported, since discordance with absolute values may lead to misinterpretation of CBC data. Current Interpretive Data was last revised on 2018. Imm gran pct 2.2 % [facility] Comment: Interpretive Data Percent cell count reference ranges are not reported, since discordance with absolute values may lead to misinterpretation of CBC data. Current Interpretive Data was last revised on 2018. Lymphocyte pct 9.9 % [facility] Comment: Interpretive Data Percent cell count reference ranges are not reported, since discordance with absolute values may lead to misinterpretation of CBC data. Current Interpretive Data was last revised on 2018. Monocyte pct 6.2 % [facility] Comment: Interpretive Data Percent cell count reference ranges are not reported, since discordance with absolute values may lead to misinterpretation of CBC data. Current Interpretive Data was last revised on 2018. Eosinophil pct 0.0 % [facility] Comment: Interpretive Data Percent cell count reference ranges are not reported, since discordance with absolute values may lead to misinterpretation of CBC data. Current Interpretive Data was last revised on 2018. Basophil pct 0.2 % [facility] Comment: Interpretive Data Percent cell count reference ranges are not reported, since discordance with absolute values may lead to misinterpretation of CBC data. Current Interpretive Data was last revised on 2018. Blood 09/06/2024 12:3 2 PM CDT 09/06/2024 12:43 PM CDT us Ever Atnon MD LAB BLOOD ORDERABLES Final Res ult [facility] [address] [place] [address] * (ABNORMAL) CBC with auto differential (09/06/2024 12:32 PM CDT) WBC 6.0 3.8 - 9.9 K/cumm Hgb 7.7(L) 13.0 - 17.5 g/dL [facility] Hct 25.7(L) 38.9 - 50.3 % [facility] Plt 156 150 - 400 K/cumm [facility] MPV 8.6(L) 9.1 - 12.3 fL [facility] RBC 3.17(L) 4.30 - 5.80 M/cumm [facility] MCV 81.1(L) 81.3 - 96.4 fL [facility] MCH 24.3(L) 27.1 - 33.3 pg [facility] MCHC 30.0(L) 32.3 - 35.7 g/dL [facility] RDW CV 17.1(H) 11.1 - 14.9 % [facility] RDW SD 50.9(H) 35.7 - 48.1 fL [facility] NRBC abs 0.02(H) 0.00 - 0.01 K/cumm [facility] Blood 09/06/2024 12:3 2 PM CDT 09/06/2024 12:43 PM CDT us Milton Mclean MD LAB BLOOD ORDERABLES Final Result Performing Organization Address City/[facility]/ZIP Co de Phone Number [facility] [address] [place] [address] * POCT glucose (09/06/2024 6:33 AM CDT) [facility] Signature Glucose, POC 141 70 - 199 mg/dL Comment: For Glucose values <35 mg/dl when Hematocrit is >60 mg/dl,the test may not accurately detect significant hypoglycemia,and testing in the Laboratory should be considered if clinically indicated. Blood 09/06/2024 6:33 AM CDT 09/06/2024 6:33 AM CDT us Giovanny Garcia MD LAB POCT ORDERABLES - DEVICE Fin al Result Performing Organization Address City/[facility]/ZIP Co de Phone Number [facility] [address] [place] [address] [place] [address] * FL ERCP Biliary and Pancreatic (09/05/2024 2:57 PM CDT) Narrative RAD_P[facility] - 09/05/2024 3:06 PM CDT The images from this study are not interpreted by Radiology. ??Please refer to the physician's procedure / OR operative note. us Milton Mclean MD IMG FLUOROSCOPY PROCEDURES Final Result RAD_PACS_[facility] * ERCP (09/05/2024 2:20 PM CDT) Anatomical Region Laterality Modality Other Narrative Procedure Note Milton Mclean MD - 09/05/2024 2:20 PM CDT ENDOSCOPY LAB Patient Name: Abiel Fink Procedure Date: 09/05/2024 2:20 PM Admit Type: Inpatient Room: [facility] Date of : 1950 Instrument Name: [id number] Gender: Male Note Status: Finalized Procedure: ERCP Indications: Bile leak Providers: Milton Mclean M.D. Referring MD: Harmeet Alejandre, Juan Retana M.D. Medicines: Monitored Anesthesia Care, Indomethacin 100 mg [place] Complications: No immediate complications. Estimated Blood Loss: [...] The patient tolerated the procedurewell. Findings: A retoucher film of the abdomen was obtained. One [...] * POCT glucose (09/05/2024 1:02 PM CDT) [facility] Signature Glucose, POC 164 70 - 199 mg/dL Comment: For Glucose values <35 mg/dl when Hematocrit is >60 mg/dl,the test may not accurately detect significant hypoglycemia,and testing in the Laboratory should be considered if clinically indicated. Blood 09/05/2024 1:02 PM CDT 09/05/2024 1:02 PM CDT Giovanny Garcia MD LAB POCT ORDERABLES - DEVICE Fin al Result [facility] [address] Department [place] [address] * POCT glucose (09/05/2024 8:41 AM CDT) [facility] Glucose, POC 142 70 - 199 mg/dL Comment: For Glucose values <35 mg/dl when Hematocrit is >60 mg/dl,the test may not accurately detect significant hypoglycemia,and testing in the Laboratory should be considered if clinically indicated. Blood 09/05/2024 8:41 AM CDT 09/05/2024 8:41 AM CDT us Giovanny Garcia MD LAB POCT ORDERABLES - DEVICE Fin al Result [facility] [address] [place] [address] * (ABNORMAL) Differential, auto (09/05/2024 6:40 AM CDT) [facility] Neutrophil abs 6.0 1.5 - 6.5 K/cumm Imm gran abs 0.1 0.0 - 0.1 K/cumm [facility] Lymphocyte abs 0.5(L) 0.8 - 3.3 K/cumm [facility] Monocyte abs 0.3 0.2 - 0.8 K/cumm [facility] Eosinophil abs 0.0 0.0 - 0.5 K/cumm [facility] Basophil abs 0.0 0.0 - 0.1 K/cumm [facility] Neutrophil pct 85.1 % [facility] Comment: Interpretive Data Percent cell count reference ranges are not reported, since discordance with absolute values may lead to misinterpretation of CBC data. Current Interpretive Data was last revised on 2018. Imm gran pct 2.0 % [facility] Comment: Interpretive Data Percent cell count reference ranges are not reported, since discordance with absolute values may lead to misinterpretation of CBC data. Current Interpretive Data was last revised on 2018. Lymphocyte pct 7.6 % [facility] Comment: Interpretive Data Percent cell count reference ranges are not reported, since discordance with absolute values may lead to misinterpretation of CBC data. Current Interpretive Data was last revised on 2018. Monocyte pct 4.8 % [facility] Comment: Interpretive Data Percent cell count reference ranges are not reported, since discordance with absolute values may lead to misinterpretation of CBC data. Current Interpretive Data was last revised on 2018. Eosinophil pct 0.1 % [facility] Comment: Interpretive Data Percent cell count reference ranges are not reported, since discordance with absolute values may lead to misinterpretation of CBC data. Current Interpretive Data was last revised on 2018. Basophil pct 0.4 % [facility] Comment: Interpretive Data Percent cell count reference ranges are not reported, since discordance with absolute values may lead to misinterpretation of CBC data. Current Interpretive Data was last revised on 2018. Blood 09/05/2024 6:40 AM CDT 09/05/2024 6:40 AM CDT us Deanna Bangura MD LAB BLOOD ORDERABLES Final Res ult [facility] [address] [place] [address] * (ABNORMAL) CBC with auto differential (09/05/2024 6:40 AM CDT) WBC 7.1 3.8 - 9.9 K/cumm Hgb 10.0(L) 13.0 - 17.5 g/dL [facility] Hct 34.3(L) 38.9 - 50.3 % [facility] Plt 185 150 - 400 K/cumm [facility] MPV 9.4 9.1 - 12.3 fL [facility] RBC 4.24(L) 4.30 - 5.80 M/cumm [facility] MCV 80.9(L) 81.3 - 96.4 fL [facility] MCH 23.6(L) 27.1 - 33.3 pg [facility] MCHC 29.2(L) 32.3 - 35.7 g/dL [facility] RDW CV 16.9(H) 11.1 - 14.9 % [facility] RDW SD 49.4(H) 35.7 - 48.1 fL [facility] NRBC abs 0.00 0.00 - 0.01 K/cumm [facility] Blood 09/05/2024 6:40 AM CDT 09/05/2024 6:46 AM CDT us Deanna Bangura MD LAB BLOOD ORDERABLES Final Res ult [facility] [address] [place] [address] * eGFR (09/05/2024 5:27 AM CDT) eGFR [...] ORDERABLES Final Re sult Performing Organization Address [facility]/ZIP Co de Phone Number [facility] [address] [facility] [email or web address] [place], [place] [id number] * Phosphorus (09/05/2024 5:27 AM CDT) Pathologist [facility] Phosphorus, pl 4.4 2.3 - 4.5 mg/dL Blood 09/05/2024 5:27 AM CDT 09/05/2024 5:41 AM CDT Jose Enriquez MD LAB BLOOD ORDERABLES Final Re sult Performing Organization Address [facility] Co de Phone Number [facility] [address] [email or web address] [address] * Bilirubin, direct (09/05/2024 5:27 AM CDT) [facility] Bilirubin, direct 0.3 0.1 - 0.3 mg/dL Blood 09/05/2024 5:27 AM CDT 09/05/2024 5:41 AM CDT Jose Enriquez MD LAB BLOOD ORDERABLES Final Re sult Performing Organization Address [facility] Co de Phone Number [facility] [address] [email or web address] [address] * (ABNORMAL) Comprehensive metabolic panel (09/05/2024 5:27 AM CDT) Pathologist [facility] Sodium 139 135 - 145 mmol/L Potassium, pl 4.3 3.3 - 4.9 mmol/L [facility] Chloride 105 97 - 110 mmol/L [facility] CO2 22 22 - 32 mmol/L [facility] Anion gap 12 2 - 15 mmol/L [facility] BUN 12 6 - 25 mg/dL [facility] Creatinine 0.83 0.80 - 1.30 mg/dL [facility] Glucose 139 70 - 199 mg/dL [facility] Comment: Interpretive Data Fasting glucose >/= [...] 2022. Calcium 8.3(L) 8.5 - 10.3 mg/dL [facility] Bilirubin, total 0.5 0.1 - 1.2 mg/dL [facility] Protein, pl 6.8 6.5 - 8.5 g/dL [facility] Albumin 3.1(L) 3.5 - 5.0 g/dL [facility] Alk phos 175(H) 40 - 130 Units/L [facility] ALT 24 7 - 55 Units/L [facility] AST 42 10 - 50 Units/L [facility] Blood 09/05/2024 5:27 AM CDT 09/05/2024 5:41 AM CDT Jose Enriquez MD LAB BLOOD ORDERABLES Final Re sult [facility] [address] [place] [address] * POCT glucose (09/05/2024 4:29 AM CDT) [facility] Glucose, POC 164 70 - 199 mg/dL Comment: For Glucose values <35 mg/dl when Hematocrit is >60 mg/dl,the test may not accurately detect significant hypoglycemia,and testing in the Laboratory should be considered if clinically indicated. Blood 09/05/2024 4:29 AM CDT 09/05/2024 4:29 AM CDT Deanna Bangura MD LAB POCT ORDERABLES - DEVICE F inal Result Performing Organization Address [facility] Co de Phone Number [facility] [address] [facility] [email or web address] [place], [place] [id number] * POCT glucose (09/04/2024 11:46 PM CDT) [...] DEVICE F inal Result Performing Organization Address [facility] Co de Phone Number [facility] [address] [facility] [email or web address] [address] * POCT glucose (09/04/2024 8:12 PM CDT) [...] DEVICE F inal Result Performing Organization Address [facility] Co de Phone Number [facility] [address] [facility] [email or web address] [address] * POCT glucose (09/04/2024 3:33 PM CDT) [...] DEVICE F inal Result Performing Organization Address [facility] Co de Phone Number [facility] [address] [place] [address] * Aerobic and anaerobic culture and gram stain Bile Abdominal (09/04/2024 2:50 PM CDT) Direct Specimen Exam Stain: No organisms seen. No polymorphonuclear leukocytes seen. Report Final Report: No growth [facility] Bile (Abdominal) 09/04/2024 2:50 PM CDT 09/04/2024 3:18 PM CDT N[facility]ative [facility] - 09/07/2024 2:00 PM CDT Bile Ever Anton MD LAB MICROBIOLOGY - GENERAL ORD ERABLES Final Result Performing Organization Address [facility] Co de Phone Number [place] [id number] Department [email or web address] [address] * Transfuse RBC (09/04/2024 2:32 PM CDT) Blood Gorge Jones MD BLOOD TRANSFUSION ORDERABLE S Edited Result - Final Performing Organization Address [facility]/ZIP Co de Phone Number [facility] [address] Department of [employer] [place], [place] [id number] * Surgical pathology (09/04/2024 2:06 PM CDT) Tissue (Gallbladder) 09/04/2024 2:06 PM CDT Comment:Placed in Formalin a t end of Procedure. Narrative PATHOLOGY [facility] - 09/07/2024 4:40 PM CDT [place] [address] [facility], [place], [place] ??[address] Tele: ?? Radha Milner MD - Specification Manager Note to Patients: This report may [...] details. SURGICAL PATHOLOGY REPORT Patient Name: ??ABIEL FINK Address: ??[facility] [place], [place] [address] Gender: ??M : ??1950 (Age: 74) Service: ??Surgery Location: ??[place] [address], ?? Hospital #: ??[id number] Patient Type: ??[facility] Accession #: ? [id number] Taken: ? 09/04/2024 Received ? 09/04/2024 Reported: ? 09/07/2024 Physician(s): ? Barron Mukherjee M.D. DIAGNOSIS: Gallbladder, laparoscopic cholecystectomy: ? - Chronic and acute cholecystitis with necrosis as09/06/2024 08:57 Examining Pathologist: [place] M.D. Report [...] gallbladder. ??No mass lesion is grossly identified. [employer] sections are submitted as follows: ??A1 - [...] malignancy is evident. Clerical Data Follows A; 99363, 31638 REPORT IMAGES AND/OR SCANNED DOCUMENTS ONLY VIEWABLE IN PDF FORMAT The immunohistochemical test(s) cited in this report, if any, was developed and its performance characteristics determined by [facility] Pathology Department. ??It has not been cleared or approved by the U.S. Food and Drug Administration. ??The FDA has determined that such clearance or approval is not necessary. ??This test is used for clinical purposes. ??It should not be regarded as investigational or for research. ??[facility] is certified under the Clinical [...] part or completely in the following laboratories: [facility], [facility], [place], [place] [address] [place] [address], [address] [place] [address], [place] [address]. Ever Anton MD LAB PATHOLOGY ORDERABLES Final Result PATHOLOGY [facility] Laboratory Receiving [address] [place] [address] * POCT glucose (09/04/2024 12:37 PM CDT) Glucose, POC 107 70 - 199 mg/dL Comment: For Glucose values <35 mg/dl when Hematocrit is >60 mg/dl,the test may not accurately detect significant hypoglycemia,and testing in the Laboratory should be considered if clinically indicated. Blood 09/04/2024 12:3 7 PM CDT 09/04/2024 12:37 PM CDT Deanna Bangura MD LAB POCT ORDERABLES - DEVICE F inal Result Performing Organization Address [facility] Co de Phone Number [facility] [address] Department [address] [place], [place] [id number] * Prepare RBC: 1 Units (09/04/2024 12:34 PM CDT) [facility] Product code [id number] Unit Number [id number] [facility] Product Blood Type OPOS [facility] Dispense Status PRESUMED TRANSFUSED [facility] Blood 09/04/2024 12:3 4 PM CDT Narrative [facility] - 09/05/2024 10:15 AM CDT Specify Procedure:->Hold for procedure Are special requirements needed? (All products are leukoreduced and CMV- safe)- >No Date required:-[id number] LRRBC # of [id number] Reasons:-Pre-op Hgb <8 g/dL} us Ever Anton MD BLOOD BANK PRODUCT ORDERABLES Final Result Performing Organization Address [facility] Co de Phone Number [facility] [address] [place] [address] [place] [address] * POCT glucose (09/04/2024 7:52 AM CDT) Pathologist [facility] Glucose, POC 107 70 - 199 mg/dL Comment: For Glucose values <35 mg/dl when Hematocrit is >60 mg/dl,the test may not accurately detect significant hypoglycemia,and testing in the Laboratory should be considered if clinically indicated. Blood 09/04/2024 7:52 AM CDT 09/04/2024 7:52 AM CDT us Deanna Bangura MD LAB POCT ORDERABLES - DEVICE F inal Result [facility] [address] [place] [address] * eGFR (09/04/2024 5:29 AM CDT) eGFR [...] MD LAB BLOOD ORDERABLES Final Re sult [facility] [address] [place] [address] * Differential, auto (09/04/2024 5:29 AM CDT) Neutrophil abs 3.0 1.5 - 6.5 K/cumm Imm gran abs 0.1 0.0 - 0.1 K/cumm [facility] Lymphocyte abs 1.0 0.8 - 3.3 K/cumm [facility] Monocyte abs 0.6 0.2 - 0.8 K/cumm [facility] Eosinophil abs 0.2 0.0 - 0.5 K/cumm [facility] Basophil abs 0.1 0.0 - 0.1 K/cumm [facility] Neutrophil pct 61.1 % [facility] Comment: Interpretive Data Percent cell count reference ranges are not reported, since discordance with absolute values may lead to misinterpretation of CBC data. Current Interpretive Data was last revised on 2018. Imm gran pct 1.2 % [facility] Comment: Interpretive Data Percent cell count reference ranges are not reported, since discordance with absolute values may lead to misinterpretation of CBC data. Current Interpretive Data was last revised on 2018. Lymphocyte pct 20.5 % [facility] Comment: Interpretive Data Percent cell count reference ranges are not reported, since discordance with absolute values may lead to misinterpretation of CBC data. Current Interpretive Data was last revised on 2018. Monocyte pct 11.3 % [facility] Comment: Interpretive Data Percent cell count reference ranges are not reported, since discordance with absolute values may lead to misinterpretation of CBC data. Current Interpretive Data was last revised on 2018. Eosinophil pct 4.7 % [facility] Comment: Interpretive Data Percent cell count reference ranges are not reported, since discordance with absolute values may lead to misinterpretation of CBC data. Current Interpretive Data was last revised on 2018. Basophil pct 1.2 % [facility] Comment: Interpretive Data Percent cell count reference ranges are not reported, since discordance with absolute values may lead to misinterpretation of CBC data. Current Interpretive Data was last revised on 2018. Blood 09/04/2024 5:29 AM CDT 09/04/2024 5:39 AM CDT Jose Enriquez MD LAB BLOOD ORDERABLES Final Re sult Performing Organization Address City/[facility] Co de Phone Number [facility] [address] [email or web address] [address] * Phosphorus (09/04/2024 5:29 AM CDT) Phosphorus, pl 3.3 2.3 - 4.5 mg/dL Blood 09/04/2024 5:29 AM CDT 09/04/2024 5:39 AM CDT Jose Enriquez MD LAB BLOOD ORDERABLES Final Re sult Performing Organization Address [facility] Co de Phone Number [facility] [address] [place] [address] * Bilirubin, direct (09/04/2024 5:29 AM CDT) Bilirubin, direct 0.2 0.1 - 0.3 mg/dL Blood 09/04/2024 5:29 AM CDT 09/04/2024 5:39 AM CDT Jose Enriquez MD LAB BLOOD ORDERABLES Final Re sult Performing Organization Address City/[facility] Co de Phone Number [facility] [address] Department of [employer] [place], [place] [id number] * (ABNORMAL) Comprehensive metabolic panel (09/04/2024 5:29 AM CDT) Sodium 139 135 - 145 mmol/L Potassium, pl 3.3 3.3 - 4.9 mmol/L [facility] Chloride 106 97 - 110 mmol/L [facility] CO2 22 22 - 32 mmol/L [facility] Anion gap 11 2 - 15 mmol/L [facility] BUN 11 6 - 25 mg/dL [facility] Creatinine 0.81 0.80 - 1.30 mg/dL [facility] Glucose 115 70 - 199 mg/dL [facility] Comment: Interpretive Data Fasting glucose >/= [...] 2022. Calcium 8.0(L) 8.5 - 10.3 mg/dL [facility] Bilirubin, total 0.4 0.1 - 1.2 mg/dL [facility] Protein, pl 6.1(L) 6.5 - 8.5 g/dL [facility] Albumin 2.8(L) 3.5 - 5.0 g/dL [facility] Alk phos 176(H) 40 - 130 Units/L [facility] ALT 23 7 - 55 Units/L [facility] AST 45 10 - 50 Units/L [facility] Blood 09/04/2024 5:29 AM CDT 09/04/2024 5:39 AM CDT us Jose Enriquez MD LAB BLOOD ORDERABLES Final Re sult [facility] [address] [place] [address] * Type and screen (09/04/2024 5:29 AM CDT) ABO Rh O Positive Janell, indirect Negative [facility] Blood 09/04/2024 5:29 AM CDT 09/04/2024 5:39 AM CDT Narrative [facility] - 09/04/2024 6:16 AM CDT Has the patient had Daratumumab or Isatuximab in the past 6 months?->Unknown us Wiley Hernandez MD LAB BLOOD BANK TEST ORDERABLES Final Result Performing Organization Address [facility]/ZIP Co de Phone Number [facility] [address] [employer] [place], [place] [id number] * (ABNORMAL) CBC with auto differential (09/04/2024 5:29 AM CDT) Pathologist [facility] Department WBC 4.9 3.8 - 9.9 K/cumm Hgb 7.6(L) 13.0 - 17.5 g/dL [facility] Hct 26.2(L) 38.9 - 50.3 % [facility] Plt 192 150 - 400 K/cumm [facility] MPV 9.3 9.1 - 12.3 fL [facility] RBC 3.29(L) 4.30 - 5.80 M/cumm [facility] MCV 79.6(L) 81.3 - 96.4 fL [facility] MCH 23.1(L) 27.1 - 33.3 pg [facility] MCHC 29.0(L) 32.3 - 35.7 g/dL [facility] RDW CV 16.7(H) 11.1 - 14.9 % [facility] RDW SD 47.9 35.7 - 48.1 fL [facility] NRBC abs 0.00 0.00 - 0.01 K/cumm [facility] Blood 09/04/2024 5:29 AM CDT 09/04/2024 5:39 AM CDT us Milton Mclean MD LAB BLOOD ORDERABLES Final Result [facility] [address] [address] * POCT glucose (09/04/2024 4:37 AM CDT) [...] DEVICE F inal Result Performing Organization Address [facility] de Phone Number [facility] [address] [place] [address] * POCT glucose (09/04/2024 12:01 AM CDT) [...] DEVICE F inal Result Performing Organization Address [facility] de Phone Number [facility] [address] [place] [address] * Check Sample (09/03/2024 6:33 AM CDT) ABO Rh O Positive MBC HCLL OTHER 09/03/2024 6:33 AM CDT 09/03/2024 8:44 PM CDT Deanna Bangura MD LAB BLOOD ORDERABLES Final Res ult Performing Organization Address [facility] de Phone Number [facility] [address] [place] [address] MBC * eGFR (09/03/2024 6:33 AM CDT) [...] LAB BLOOD ORDERABLES Final Re sult [facility] [address] [place] [address] * Phosphorus (09/03/2024 6:33 AM CDT) Phosphorus, pl 2.8 2.3 - 4.5 mg/dL Blood 09/03/2024 6:33 AM CDT 09/03/2024 7:32 AM CDT Kyrie Tucker MD LAB BLOOD ORDERABLES Final Re sult [facility] [address] [facility] [place] [address] * Bilirubin, direct (09/03/2024 6:33 AM CDT) Bilirubin, direct 0.3 0.1 - 0.3 mg/dL Blood 09/03/2024 6:33 AM CDT 09/03/2024 7:32 AM CDT Kyrie Tucker MD LAB BLOOD ORDERABLES Final Re sult Performing Organization Address City/[facility] Co de Phone Number [facility] [address] [place] [address] * Differential, auto (09/03/2024 6:33 AM CDT) Neutrophil abs 3.3 1.5 - 6.5 K/cumm Imm gran abs 0.1 0.0 - 0.1 K/cumm [facility] Lymphocyte abs 1.0 0.8 - 3.3 K/cumm [facility] Monocyte abs 0.6 0.2 - 0.8 K/cumm [facility] Eosinophil abs 0.3 0.0 - 0.5 K/cumm [facility] Basophil abs 0.1 0.0 - 0.1 K/cumm [facility] Neutrophil pct 63.1 % [facility] Comment: Interpretive Data Percent cell count reference ranges are not reported, since discordance with absolute values may lead to misinterpretation of CBC data. Current Interpretive Data was last revised on 2018. Imm gran pct 1.0 % [facility] Comment: Interpretive Data Percent cell count reference ranges are not reported, since discordance with absolute values may lead to misinterpretation of CBC data. Current Interpretive Data was last revised on 2018. Lymphocyte pct 18.3 % [facility] Comment: Interpretive Data Percent cell count reference ranges are not reported, since discordance with absolute values may lead to misinterpretation of CBC data. Current Interpretive Data was last revised on 2018. Monocyte pct 11.6 % [facility] Comment: Interpretive Data Percent cell count reference ranges are not reported, since discordance with absolute values may lead to misinterpretation of CBC data. Current Interpretive Data was last revised on 2018. Eosinophil pct 4.8 % [facility] Comment: Interpretive Data Percent cell count reference ranges are not reported, since discordance with absolute values may lead to misinterpretation of CBC data. Current Interpretive Data was last revised on 2018. Basophil pct 1.2 % [facility] Comment: Interpretive Data Percent cell count reference ranges are not reported, since discordance with absolute values may lead to misinterpretation of CBC data. Current Interpretive Data was last revised on 2018. Blood 09/03/2024 6:33 AM CDT 09/03/2024 7:32 AM CDT Jose Enriquez MD LAB BLOOD ORDERABLES Final Re sult [facility] [address] [place] [address] * (ABNORMAL) CBC with auto differential (09/03/2024 6:33 AM CDT) WBC 5.2 3.8 - 9.9 K/cumm Hgb 8.2(L) 13.0 - 17.5 g/dL [facility] Hct 28.6(L) 38.9 - 50.3 % [facility] Plt 173 150 - 400 K/cumm [facility] MPV 9.6 9.1 - 12.3 fL [facility] RBC 3.51(L) 4.30 - 5.80 M/cumm [facility] MCV 81.5 81.3 - 96.4 fL [facility] MCH 23.4(L) 27.1 - 33.3 pg [facility] MCHC 28.7(L) 32.3 - 35.7 g/dL [facility] RDW CV 16.8(H) 11.1 - 14.9 % [facility] RDW SD 49.4(H) 35.7 - 48.1 fL [facility] NRBC abs 0.00 0.00 - 0.01 K/cumm [facility] Blood 09/03/2024 6:33 AM CDT 09/03/2024 7:32 AM CDT us Milton Mclean MD LAB BLOOD ORDERABLES Final Result [facility] [address] [place] [address] * (ABNORMAL) Comprehensive metabolic panel (09/03/2024 6:33 AM CDT) Sodium 139 135 - 145 mmol/L Potassium, pl 3.5 3.3 - 4.9 mmol/L [facility] Chloride 107 97 - 110 mmol/L [facility] CO2 21(L) 22 - 32 mmol/L [facility] Anion gap 11 2 - 15 mmol/L [facility] BUN 13 6 - 25 mg/dL [facility] Creatinine 0.77(L) 0.80 - 1.30 mg/dL [facility] Glucose 92 70 - 199 mg/dL [facility] Comment: Interpretive Data Fasting glucose >/= [...] 2022. Calcium 7.9(L) 8.5 - 10.3 mg/dL [facility] Bilirubin, total 0.6 0.1 - 1.2 mg/dL [facility] Protein, pl 6.0(L) 6.5 - 8.5 g/dL [facility] Albumin 2.4(L) 3.5 - 5.0 g/dL [facility] Alk phos 149(H) 40 - 130 Units/L [facility] ALT 23 7 - 55 Units/L [facility] AST 43 10 - 50 Units/L [facility] Blood 09/03/2024 6:33 AM CDT 09/03/2024 7:32 AM CDT us Kyrie Tucker MD LAB BLOOD ORDERABLES Final Re sult [facility] [address] [place] [address] * US RUQ (09/02/2024 5:26 PM CDT) [...] flow. Electronically signed by: Jeremy Edwards M.D. us Diana KUHN IMG US PROCEDURES Tiffany l Result * (ABNORMAL) Troponin T high-sensitivity 6-hour (09/02/2024 4:20 PM CDT) Pathologist [facility] Trop T hs 72(H) <=22 ng/L Comment: Interpretive Data For further hscTnT resources including the diagnostic algorithm and an aid in interpretation, copy and paste this link: https://nrl.testcatalog.org/show/hsTrop Current Interpretive Data last revised 2020. Trop T hs delta 3 ng/L [facility] Trop T hs interp Insignificant [facility] Blood 09/02/2024 4:20 PM CDT 09/02/2024 4:29 PM CDT us Kyrie Tucker MD LAB BLOOD ORDERABLES Final Re sult [facility] [address] Department [place] [address] * (ABNORMAL) Troponin T high-sensitivity 4-hour (09/02/2024 2:29 PM CDT) Trop T hs 71(H) <=22 ng/L Comment: Interpretive Data For further hscTnT resources including the diagnostic algorithm and an aid in interpretation, copy and paste this link: https://nrl.testcatCargoSpotter.org/show/hsTrop Current Interpretive Data last revised 2020. Trop T hs delta 2 ng/L [facility] Trop T hs interp Insignificant [facility] Blood 09/02/2024 2:29 PM CDT 09/02/2024 2:29 PM CDT Kyrie Tucker MD LAB BLOOD ORDERABLES Final Re sult Performing Organization Address [facility]/ZIP Co de Phone Number [facility] [address] [place] [address] * (ABNORMAL) Troponin T high-sensitivity 2-hour (09/02/2024 11:08 AM CDT) Pathologist [facility] Trop T hs 70(H) <=22 ng/L Comment: Interpretive Data For further hscTnT resources including the diagnostic algorithm and an aid in interpretation, copy and paste this link: https://nrl.testCurrent Media.org/show/hsTrop Current Interpretive Data last revised 2020. Trop T hs delta See Comment ng/L [facility] Comment:Inappropriate collec tion time to report a delta. Trop T hs pct delta See Comment % [facility] Comment:Inappropriate collec tion time to report a delta. Trop T hs interp See Comment [facility] Comment:Inappropriate collec tion time to report a delta. Blood 09/02/2024 11:0 8 AM CDT 09/02/2024 11:19 AM CDT Kyrie Tucker MD LAB BLOOD ORDERABLES Final Re sult Performing Organization Address City/[facility]/ZIP Co de Phone Number [facility] [address] [place] [address] [address] * Blood culture Blood (09/02/2024 11:08 AM CDT) Report Final Report: No growth Blood 09/02/2024 11:0 8 AM CDT 09/02/2024 11:16 AM CDT Narrative [facility] - 09/07/2024 1:00 PM CDT [...] organism identification may be performed using the Immedia Blood Culture Identification panel. This assay detects microbial DNA in a blood culture broth. This assay has been cleared by the [place] Food and Drug Administration and its performance characteristics have been verified by the [facility]. Interpretive data was last revised on December 10, 2022. Kyrie Tucker MD LAB MICROBIOLOGY - GENERAL OR DERABLES Final Result [facility] [address] Department [email or web address] [address] * Phosphorus (09/02/2024 9:38 AM CDT) Pathologist [facility] Phosphorus, pl 2.5 2.3 - 4.5 mg/dL Blood 09/02/2024 9:38 AM CDT 09/02/2024 10:27 AM CDT Kyrie Tucker MD LAB BLOOD ORDERABLES Final Re sult [facility] [address] Department of [email or web address] [place], [place] [id number] * Magnesium (09/02/2024 9:38 AM CDT) Pathologist [facility] Magnesium 1.9 1.4 - 2.5 mg/dL Blood 09/02/2024 9:38 AM CDT 09/02/2024 10:27 AM CDT Kyrie Tucker MD LAB BLOOD ORDERABLES Final Re sult Performing Organization Address [facility]/ZIP Co de Phone Number [facility] [address] Department [email or web address] [address] * (ABNORMAL) Troponin T high-sensitivity series (baseline, 2hr, 4hr, 6hr) (09/02/2024 9:38 AM CDT) Trop T hs 69(H) <=22 ng/L Comment: Interpretive Data For further hscTnT resources including the diagnostic algorithm and an aid in interpretation, copy and paste this link: https://nrl.testcatalog.org/show/hsTrop Current Interpretive Data last revised 2020. Blood 09/02/2024 9:38 AM CDT 09/02/2024 10:27 AM CDT us Kyrie Tucker MD LAB BLOOD ORDERABLES Final Re sult Performing Organization Address [facility]/ZIP Co de Phone Number [facility] [address] [email or web address] [address] * Sepsis Lactate w/ Reflex (09/02/2024 9:38 AM CDT) Sepsis Lactate 1.3 0.7 - 2.0 mmol/L Blood 09/02/2024 9:38 AM CDT 09/02/2024 10:23 AM CDT Kyrie Tucker MD LAB BLOOD ORDERABLES Final Re sult [facility] [address] [facility] [email or web address] [address] * Blood culture Blood (09/02/2024 9:38 AM CDT) Report Final Report: No growth Blood 09/02/2024 9:38 AM CDT 09/02/2024 10:22 AM CDT [facility]ative [facility] - 09/07/2024 1:00 PM CDT [...] organism identification may be performed using the Immedia Blood Culture Identification panel. This assay detects microbial DNA in a blood culture broth. This assay has been cleared by the [place] Food and Drug Administration and its performance characteristics have been verified by the [facility]. Interpretive data was last revised on December 10, 2022. Kyrie Tucker MD LAB MICROBIOLOGY - GENERAL OR DERABLES Final Result Performing Organization Address [facility] de Phone Number [facility] [address] [place] [address] * ECG 12 lead (09/02/2024 8:21 AM CDT) 09/02/2024 8:21 AM CDT Narrative [facility] - 09/02/2024 2:31 PM CDT Vent Rate: 92 bpm RR Interval: 650 msec TX Interval: 154 msec QRS Duration: 151 msec QT Interval: 406 msec QTC Interval: 456 msec P-R-T King: 37 - 267 - 106 degrees IMPRESSION: ELECTRONIC VENTRICULAR PACEMAKER ABNORMAL RHYTHM ECG NO PRIOR TRACING Electronically Signed By: Mynor Arnett MD [facility] Kyrie Tucker MD ECG ORDERABLES Final Result Performing Organization Address [facility] de Phone Number [facility] [employer] [place] * eGFR (09/02/2024 6:11 AM CDT) [facility] eGFR >90 >=60 mL/min/1. 73 m2 [...] MD LAB BLOOD ORDERABLES Final Re sult [facility] [address] [place] [address] * Differential, auto (09/02/2024 6:11 AM CDT) Neutrophil abs 4.1 1.5 - 6.5 K/cumm Imm gran abs 0.1 0.0 - 0.1 K/cumm [facility] Lymphocyte abs 0.9 0.8 - 3.3 K/cumm [facility] Monocyte abs 0.5 0.2 - 0.8 K/cumm [facility] Eosinophil abs 0.3 0.0 - 0.5 K/cumm [facility] Basophil abs 0.1 0.0 - 0.1 K/cumm [facility] Neutrophil pct 70.0 % [facility] Comment: Interpretive Data Percent cell count reference ranges are not reported, since discordance with absolute values may lead to misinterpretation of CBC data. Current Interpretive Data was last revised on 2018. Imm gran pct 0.9 % [facility] Comment: Interpretive Data Percent cell count reference ranges are not reported, since discordance with absolute values may lead to misinterpretation of CBC data. Current Interpretive Data was last revised on 2018. Lymphocyte pct 15.2 % [facility] Comment: Interpretive Data Percent cell count reference ranges are not reported, since discordance with absolute values may lead to misinterpretation of CBC data. Current Interpretive Data was last revised on 2018. Monocyte pct 8.3 % [facility] Comment: Interpretive Data Percent cell count reference ranges are not reported, since discordance with absolute values may lead to misinterpretation of CBC data. Current Interpretive Data was last revised on 2018. Eosinophil pct 4.7 % [facility] Comment: Interpretive Data Percent cell count reference ranges are not reported, since discordance with absolute values may lead to misinterpretation of CBC data. Current Interpretive Data was last revised on 2018. Basophil pct 0.9 % [facility] Comment: Interpretive Data Percent cell count reference ranges are not reported, since discordance with absolute values may lead to misinterpretation of CBC data. Current Interpretive Data was last revised on 2018. Blood 09/02/2024 6:11 AM CDT 09/02/2024 6:52 AM CDT us Jose Enriquez MD LAB BLOOD ORDERABLES Final Re sult [facility] [address] [place] [address] * Phosphorus (09/02/2024 6:11 AM CDT) Phosphorus, pl 2.3 2.3 - 4.5 mg/dL Blood 09/02/2024 6:11 AM CDT 09/02/2024 6:51 AM CDT us Jose Enriquez MD LAB BLOOD ORDERABLES Final Re sult [facility] [address] [email or web address] [address] * (ABNORMAL) Bilirubin, direct (09/02/2024 6:11 AM CDT) Pathologist [facility] Bilirubin, direct 0.4(H) 0.1 - 0.3 mg/dL Blood 09/02/2024 6:11 AM CDT 09/02/2024 6:51 AM CDT us Jose Enriquez MD LAB BLOOD ORDERABLES Final Re sult Performing Organization Address [facility] Co de Phone Number [facility] [address] [place] [address] * (ABNORMAL) Comprehensive metabolic panel (09/02/2024 6:11 AM CDT) [facility] Sodium 140 135 - 145 mmol/L Potassium, pl 3.5 3.3 - 4.9 mmol/L [facility] Chloride 106 97 - 110 mmol/L [facility] CO2 21(L) 22 - 32 mmol/L [facility] Anion gap 13 2 - 15 mmol/L [facility] BUN 14 6 - 25 mg/dL [facility] Creatinine 0.74(L) 0.80 - 1.30 mg/dL [facility] Glucose 100 70 - 199 mg/dL [facility] Comment: Interpretive Data Fasting glucose >/= [...] 2022. Calcium 7.7(L) 8.5 - 10.3 mg/dL [facility] Bilirubin, total 0.7 0.1 - 1.2 mg/dL [facility] Protein, pl 6.1(L) 6.5 - 8.5 g/dL [facility] Albumin 2.7(L) 3.5 - 5.0 g/dL [facility] Alk phos 146(H) 40 - 130 Units/L [facility] ALT 23 7 - 55 Units/L [facility] AST 38 10 - 50 Units/L [facility] Blood 09/02/2024 6:11 AM CDT 09/02/2024 6:51 AM CDT Jose Enriquez MD LAB BLOOD ORDERABLES Final Re sult [facility] [address] [place] [address] * (ABNORMAL) CBC with auto differential (09/02/2024 6:11 AM CDT) WBC 5.8 3.8 - 9.9 K/cumm Hgb 7.9(L) 13.0 - 17.5 g/dL [facility] Hct 27.3(L) 38.9 - 50.3 % [facility] Plt 186 150 - 400 K/cumm [facility] MPV 9.8 9.1 - 12.3 fL [facility] RBC 3.35(L) 4.30 - 5.80 M/cumm [facility] MCV 81.5 81.3 - 96.4 fL [facility] MCH 23.6(L) 27.1 - 33.3 pg [facility] MCHC 28.9(L) 32.3 - 35.7 g/dL [facility] RDW CV 16.8(H) 11.1 - 14.9 % [facility] RDW SD 49.3(H) 35.7 - 48.1 fL [facility] NRBC abs 0.00 0.00 - 0.01 K/cumm [facility] Blood 09/02/2024 6:11 AM CDT 09/02/2024 6:52 AM CDT us Milton Mclean MD LAB BLOOD ORDERABLES Final Result [facility] [address] [place] [address] * eGFR (09/01/2024 9:13 PM CDT) eGFR [...] ORDERABLES Final Re sult Performing Organization Address [facility] Co de Phone Number [facility] [address] [facility] [email or web address] [place], [place] [id number] * (ABNORMAL) Phosphorus (09/01/2024 9:13 PM CDT) [facility] Phosphorus, pl 2.0(L) 2.3 - 4.5 mg/dL Blood 09/01/2024 9:13 PM CDT 09/01/2024 9:29 PM CDT Jose Enriquez MD LAB BLOOD ORDERABLES Final Re sult Performing Organization Address [facility] Co de Phone Number [facility] [address] Department [email or web address] [place], [place] [id number] * (ABNORMAL) Bilirubin, direct (09/01/2024 9:13 PM CDT) [facility] Bilirubin, direct 0.5(H) 0.1 - 0.3 mg/dL Blood 09/01/2024 9:13 PM CDT 09/01/2024 9:29 PM CDT Jose Enriquez MD LAB BLOOD ORDERABLES Final Re sult Performing Organization Address [facility] Co de Phone Number [facility] [address] Department [email or web address] [place], [place] [id number] * (ABNORMAL) Comprehensive metabolic panel (09/01/2024 9:13 PM CDT) [facility] Sodium 138 135 - 145 mmol/L Potassium, pl 3.5 3.3 - 4.9 mmol/L [facility] Chloride 105 97 - 110 mmol/L [facility] CO2 22 22 - 32 mmol/L [facility] Anion gap 11 2 - 15 mmol/L [facility] BUN 14 6 - 25 mg/dL [facility] Creatinine 0.76(L) 0.80 - 1.30 mg/dL [facility] Glucose 110 70 - 199 mg/dL [facility] Comment: Interpretive Data Fasting glucose >/= [...] 2022. Calcium 8.1(L) 8.5 - 10.3 mg/dL [facility] [facility] Bilirubin, total 0.8 0.1 - 1.2 mg/dL [facility] Protein, pl 6.6 6.5 - 8.5 g/dL [facility] Albumin 3.1(L) 3.5 - 5.0 g/dL [facility] Alk phos 148(H) 40 - 130 Units/L [facility] ALT 26 7 - 55 Units/L [facility] AST 40 10 - 50 Units/L [facility] Blood 09/01/2024 9:13 PM CDT 09/01/2024 9:29 PM CDT Jose Enriquez MD LAB BLOOD ORDERABLES Final Re sult [facility] [address] [place] [address] documented in this encounter Visit Diagnoses Diagnosis Acute cholecystitis- Primary Acute cholecystitis Coronary artery disease due to calcified coronary lesion Coronary artery disease with history of myocardial infarction without history of CABG Biventricular cardiac pacemaker in situ Acute gangrenous appendicitis with perforation and peritonitis Acute appendicitis with generalized peritonitis S/P CABG x 3 Postsurgical aortocoronary bypass status Chronic systolic heart failure (CMS/HCC) ([facility]) Chronic systolic heart failure DM2 (diabetes mellitus, type 2) ([facility]) Coronary artery disease due to calcified coronary lesion Complete heart block (CMS/HCC) (HCC) Atrioventricular block, complete Coronary artery disease with history of myocardial infarction without history of CABG Biventricular cardiac pacemaker in situ documented in this encounter Admitting Diagnoses Diagnosis Acute cholecystitis documented in this encounter Administered Medications Inactive Administered Medications - up to 3 most recent administrations Medication Order MAR Action Action Date Dose Rate Site acetaminophen (TYLENOL) tablet 1,000 mg 1,000 mg, oral, Once, On 09/04/24 at 1315, For 1 dose, Pre-Op Given 09/04/2024 12:39 PM CDT 1,000 mg acetaminophen (TYLENOL) tablet 650 mg 650 mg, oral, Every 6 hours PRN, 1st line for pain, fever, fever greater than 38.3 C, Starting on 09/01/24 at 1842, Indications: Fever, PainIndications:Fever,Pain Given 09/04/2024 8:04 PM CDT 650 mg Given 09/03/2024 10:42 PM CDT 650 mg albuterol HFA (PROVENTIL HFA,VENTOLIN HFA,PROAIR HFA) 90 mcg/actuation inhaler 2 puff 2 puff, inhalation, Every 6 hours PRN (respiratory support technician), wheezing, Starting on 09/02/24 at 0628, Indications: [...] CDT 40 mg Le ft Lower Abdomen fentaNYL (SUBLIMAZE) preservative free injection 25 mcg 25 mcg, intravenous, Every 5 min PRN, Within 15 minutes of arrival to the PACU, maximum dose of 50 mcg total., Starting on Wed09/04/24 at 1519, For 2 doses, Phase I, Within 15 minutes of arrival to the PACU. Maximum dose of 50 mcg total, then proceed to PACU 1st line analgesic or notify the anesthesiologist if needed., Indications: PainIndications:Pain Given 09/04/2024 3:30 PM CDT 25 mcg gabapentin (NEURONTIN) capsule 100 mg 100 mg, oral, Once, On Wed09/04/24 at 0030, For 1 dose, Pre-Op, Indications: Pre-Emptive AnalgesiaIndications:Pre-Empt sg Analgesia Given 09/03/2024 11:59 PM CDT 100 mg gabapentin (NEURONTIN) capsule 100 mg 100 mg, oral, Once, On Wed09/04/24 at 1315, For 1 dose, Pre-Op, Indications: Pre-Emptive AnalgesiaIndications:Pre-Empt sg Analgesia Given 09/04/2024 12:41 PM CDT 100 mg heparin 5,000 unit/mL injection 5,000 Units 5,000 Units, subcutaneous, Every 8 hours scheduled, First dose on 09/02/24 at 0700, Indications: Deep Vein Thrombosis Prevention, On hold since 09/03/2024 at 1507 until manually unheldIndications:Deep Vein Thrombosis Prevention Given 09/03/2024 2:01 PM CDT 5,000 Units Right Lower Abdomen Given 09/03/2024 5:58 AM CDT 5,000 Units L eft Lower Abdomen Given 09/02/2024 8:59 PM CDT 5,000 Units L eft Lower Abdomen HYDROcodone-acetaminophen (NORCO) 5-325 mg per tablet 1 tablet 1 tablet, oral, Every 4 hours PRN, 2nd line for pain, Starting on Wed09/01/24 at 2118, Indications: PainIndications:Pain Given 09/07/2024 2:03 PM CDT 1 tablet Given 09/07/2024 8:30 AM CDT 1 tablet Given 09/07/2024 2:11 AM CDT 1 tablet HYDROmorphone (DILAUDID) injection 0.2 mg 0.2 mg, intravenous, Administer over 2 Minutes, Every 10 min PRN, 1st line for pain, Starting on Wed09/04/24 at 1519, For 10 doses, Phase I, Switch to 2nd line analgesic order if pain is uncontrolled or increasing after 1 dose. Notify Anesthesiologist if total PACU dose reaches 2 mg and pain score 5/10 or more., Indications: PainIndications:Pain Given 09/04/2024 3:58 PM CDT 0.2 mg HYDROmorphone (DILAUDID) injection 0.4 mg 0.4 mg, intravenous, Administer over 2 Minutes, Every 10 min PRN, 2nd line for pain, Starting on Wed09/04/24 at 1519, For 5 doses, Phase I, May administer 10 mintes after 1st dose of 1st line analgesic agent for uncontrolled or increasing pain. Revert to 1st line dose if POSS of 3. Notify Anesthesiologist if total PACU dose reaches 2 mg and pain score 5/10 or more., Indications: PainIndications:Pain Given 09/04/2024 4:17 PM CDT 0.4 mg HYDROmorphone (PF) (DILAUDID) injection 0.2 mg 0.2 mg, intravenous, Administer over 2 Minutes, Every 6 hours PRN, other, as needed for severe pain. Please hold for SBP < 110 or worsening SOB or sleepiness, Starting on Wed09/01/24 at 2107 Given 09/05/2024 4:53 PM CDT 0.2 mg Given 09/05/2024 7:12 AM CDT 0.2 mg Given 09/04/2024 7:55 PM CDT 0.2 mg ioversoL (OPTIRAY 350) injection 0.01-500 mL 0.01-500 mL, intraductal, Once in imaging, contrast, Starting on Wed09/05/24 at 1421, For 1 dose Contrast Given 09/05/2024 2:35 PM CDT 13 mL isosorbide mononitrate ER (IMDUR) extended release tablet 15 mg 15 mg, oral, Daily, First dose on Wed09/02/24 at 0900, Tablets that are scored may be split, but do not crush, chew, dissolve, open or otherwise manipulate tablet/capsule. Given 09/07/2024 8:30 AM CDT 15 mg Given 09/06/2024 8:22 AM CDT 15 mg Given 09/05/2024 8:41 AM CDT 15 mg Lactated Ringer's (LR) infusion 75 mL/hr, intravenous, Continuous, Starting on 09/02/24 at 0700 New Bag 09/03/2024 12:30 PM CDT 75 mL/hr 75 mL/hr New Bag 09/02/2024 10:11 PM CDT 75 mL/hr 75 mL/hr Rate/Dose Verify 09/02/2024 8:00 AM CDT 75 mL/hr 75 mL/h r Lactated Ringer's (LR) infusion 30 mL/hr, intravenous, Continuous, Starting on 09/04/24 at 0030 Rate/Dose Verify 09/04/2024 1:14 PM CDT 30 mL/hr New Bag 09/04/2024 12:02 AM CDT 30 mL/hr 30 mL/hr ondansetron (ZOFRAN) injection 4 mg 4 mg, [...] Given 09/05/2024 8:41 AM CDT 40 mg piperacillin-tazobactam (ZOSYN) 3.375 g in sodium chloride 0.9% 100 mL IVPB 3.375 g, intravenous, at 200 mL/hr, Administer over 30 Minutes, Every 6 hours scheduled, First dose on Wed09/02/24 at 0730, For 20 doses, Mini-Bag Plus bag, Indications: Abdominal/Pelvic InfectionIndications:Abdominal/Pel thuy Infection New Bag 09/06/2024 5:11 PM CDT 3.375 g 200 mL/hr New Bag 09/06/2024 12:08 PM CDT 3.375 g 200 mL/hr New Bag 09/06/2024 6:30 AM CDT 3.375 g 200 mL/hr pregabalin (LYRICA) capsule 100 mg 100 mg, [...] Every 8 hours scheduled, First dose on Wed09/02/24 at 0700, Flush volume based on line [...] Given 09/03/2024 1:38 AM CDT 10 mL sodium chloride 0.9% infusion 75 mL/hr, intravenous, Continuous, Starting on Wed09/01/24 at 1915 Rate/Dose Verify 09/03/2024 8:25 AM CDT 75 mL/hr 75 mL/hr New Bag 09/01/2024 6:49 PM CDT 75 mL/hr 75 mL/hr documented in this encounter Discontinued Medications Medication [...] RN) 0830 (Given - Provider: Cathi Reyes, RN) bumetanide (BUMEX) tablet 0.5 mg 0.5 mg, [...] dinner), First dose on 09/02/24 at 0800 0841 (Given - Provider: Veronica Moreno RN)1340 (MAR Hold - Provider: Automatic Transfer Provider - Reason: Patient not available)1639 ([facility] Unhold - Provider: Automatic Transfer Provider)1659 (Given [...] MD)1007 (Given - Provider: Veronica Moreno RN)1340 ([facility] Hold - Provider: Automatic Transfer Provider - Reason: Patient not available)1639 ([facility] Unhold - Provider: Automatic Transfer Provider) 0822 (Given - Provider: Veronica Moreno RN) 0830 (Given - Provider: Cathi Reyes RN) enoxaparin (LOVENOX) syringe 40 mg 40 mg, subcutaneous, Daily (for enoxaparin), First dose on Wed09/05/24 at 2100, Indications: VTE Prophylaxis 1340 ([facility] Hold - Provider: Automatic Transfer Provider - Reason: Patient not available)1639 ([facility] Unhold - Provider: Automatic Transfer Provider)2100 (Given - Provider: Marleni Burgess, NAVIN) 2127 (Given - Provider: Marleni Burgess RN) isosorbide mononitrate ER (IMDUR) extended release tablet 15 mg 15 mg, oral, Daily, First dose on 09/02/24 at 0900, Tablets that are scored may be split, but do not crush, chew, dissolve, open or otherwise manipulate tablet/capsule. 0841 (Given - Provider: Veronica Moreno RN)1340 ([facility] Hold - Provider: Automatic Transfer Provider - Reason: Patient not available)1639 ([facility] Unhold - Provider: Automatic Transfer Provider) 0822 (Given - Provider: Veronica Moreno RN) 0830 (Given - Provider: Cathi Reyes RN) pantoprazole DR (PROTONIX) extended release tablet 40 mg 40 mg, oral, Daily, First dose on 09/02/24 at 0900, Do not crush, chew, cut, dissolve, open or otherwise manipulate tablet/capsule., Indications: Stress Ulcer Prophylaxis 0841 (Given - Provider: Veronica Moreno, NAVIN)1340 (JAN Hold - Provider: Automatic Transfer Provider - Reason: Patient not available)1639 ([facility] Unhold - Provider: Automatic Transfer Provider) 0822 (Given - Provider: Veronica Moreno, NAVIN) 0830 (Given - Provider: Cathi Reyes, NAVIN) piperacillin-tazobacta m (ZOSYN) 3.375 g in sodium chloride 0.9% 100 mL IVPB (COMPLETED) 3.375 g, intravenous, at 200 mL/hr, Administer over 30 Minutes, Every 6 hours scheduled, First dose on 09/02/24 at 0730, For 20 doses, Mini-Bag Plus bag, Indications: Abdominal/Pelvic Infection 0516 (New Bag - Provider: Suzie Fitch RN)0545 (Stopped - Provider: Suzie Fitch, NAVIN)1302 (New Bag - Provider: Veronica Moreno, NAVIN)1340 (JAN Hold - Provider: Automatic Transfer Provider - Reason: Patient not available)1639 ([facility] Unhold - Provider: Automatic Transfer Provider)1659 (New Bag - Provider: Veronica Moreno, NAVIN) 0005 (New Bag - Provider: Marleni Burgess, NAVIN)0630 (New Bag - Provider: Marleni Burgess, NAVIN)1208 (New Bag - Provider: Veronica Moreno, NAVIN)1711 (New Bag - Provider: Veronica Moreno, NAVIN) pregabalin (LYRICA) capsule 100 mg 100 mg, oral, 2 times daily, First dose on 09/02/24 at 0900 0841 (Given - Provider: Veronica Moreno RN)1340 (JAN Hold - Provider: Automatic Transfer Provider - Reason: Patient not available)1639 ([facility] Unhold - Provider: Automatic Transfer Provider)2059 (Given - Provider: Marleni Burgess RN) 0822 (Given - Provider: Veronica Moreno RN)2127 (Given - Provider: Marleni Burgess RN) 0830 [...] available)163 (JAN Unhold - Provider: Automatic Transfer Provider)2100 (Not Given - Provider: Marleni Burgess RN - Reason: Other - Comment: duplicate) 0634 (Given - Provider: Marleni Burgess RN)1208 (Not Given - Provider: Veronica Moreno RN - Reason: Other - Comment: Duplicate order)2126 (Not Given - Provider: Marleni Burgess RN - Reason: Other - Comment: duplicate) 0645 (Given - Provider: Marleni Burgess RN)1452 (Not Given - Provider: Cathi Reyes RN - Reason: Loss of IV access - Comment: IV removed, pt discharged) sodium chloride 0.9% flush 0.5-20 mL 0.5-20 mL, intra-catheter, Every 8 hours scheduled, First dose on Wed09/02/24 at 0700, Flush volume based on line type and size. 0616 (Not Given - Provider: Suzie Fitch RN - Reason: IV Infusing)1303 (Given - Provider: Veronica Moreno RN)1340 (JAN Hold - Provider: Automatic Transfer Provider - Reason: Patient not available)1639 ([facility] Unhold - Provider: Automatic Transfer Provider)210 (Given - Provider: Marleni Burgess RN) 0630 (Given - Provider: Marleni Burgess RN)1208 [...] fever greater than 38.3 C, Starting on Wed09/01/24 at 1842, Indications: Fever, Pain 1340 ([facility] Hold - Provider: Automatic Transfer Provider - Reason: Patient not available)163 ([facility] Unhold - Provider: Automatic Transfer Provider) albuterol HFA (PROVENTIL HFA,VENTOLIN HFA,PROAIR HFA) 90 mcg/actuation inhaler 2 puff 2 puff, inhalation, Every 6 hours PRN (respiratory support technician), wheezing, Starting on 09/02/24 at 0628, Indications: Acute Asthma Attack, Bronchospasm Prevention 1340 ([facility] Hold - Provider: Automatic Transfer Provider - Reason: Patient not available)1639 ([facility] Unhold - Provider: Automatic Transfer Provider) bisacodyL (DULCOLAX) suppository 10 mg(Linked Group 1) 10 mg, rectal, Daily PRN, constipation, if no results 24 hours after polyethylene glycol administration, Starting on 09/02/24 at 0626, Administer if not tolerating PO., Indications: constipation 1340 ([facility] Hold - Provider: Automatic Transfer Provider - Reason: Patient not available)163 ([facility] Unhold - Provider: Automatic Transfer Provider) bisacodyl EC (DULCOLAX EC) tablet 10 mg(Linked Group 1) 10 mg, oral, Daily PRN, constipation, if no results 24 hours after polyethylene glycol administration, Starting on 09/02/24 at 0626, Administer if tolerating PO. Do not crush, chew, cut, dissolve, open or otherwise manipulate tablet/capsule., Indications: constipation 1340 ([facility] Hold - Provider: Automatic Transfer Provider - Reason: Patient not available)1639 ([facility] Unhold - Provider: Automatic Transfer Provider) Carrier Fluids for Secondary Infusion - 0.9% Sodium Chloride 30 mL, intravenous, As needed, For priming tubing and/or flushing, Starting on Wed09/01/24 at 1842, 0-250 ml/hr to flush line after IV infusions when no maintenance IV ordered. Infuse 30mL at the same rate as the secondary infusion. Run as primary IV, not intended for KVO. 1340 ([facility] Hold - Provider: Automatic Transfer Provider - Reason: Patient not available)1639 ([facility] Unhold - Provider: Automatic Transfer Provider) Carrier Fluids for Secondary Infusion - 0.9% Sodium Chloride 30 mL, intravenous, As needed, For priming tubing and/or flushing, Starting on Wed09/02/24 at 0625, 0-250 ml/hr to flush line after IV infusions when no maintenance IV ordered. Infuse 30mL at the same rate as the secondary infusion. Run as primary IV, not intended for KVO. 1340 ([facility] Hold - Provider: Automatic Transfer Provider - Reason: Patient not available)1639 ([facility] Unhold - Provider: Automatic Transfer Provider) HYDROcodone-acetaminophen (NORCO) 5-325 mg per tablet 1 tablet 1 tablet, oral, Every 4 hours PRN, 2nd line for pain, Starting on Wed09/01/24 at 2118, Indications: Pain 1043 (Given - Provider: Veronica Moreno RN)1340 ([facility] Hold - Provider: Automatic Transfer Provider - Reason: Patient not available)1639 ([facility] Unhold - Provider: Automatic Transfer Provider) 0955 (Given - Provider: Veronica Moreno RN) 0211 (Given - Provider: Marleni Burgess RN - Comment: rt abdomen incision site)0830 (Given - Provider: Cathi Reyes RN)1403 (Given - Provider: Cathi Reyes, NAVIN) HYDROmorphone (PF) (DILAUDID) injection 0.2 mg 0.2 mg, intravenous, Administer over 2 Minutes, Every 6 hours PRN, other, as needed for severe pain. Please hold for SBP < 110 or worsening SOB or sleepiness, Starting on Wed09/01/24 at 2107 0712 (Given - Provider: Suzie Fitch RN)1043 (Canceled Entry - Provider: Veronica Moreno RN)1340 ([facility] Hold - Provider: Automatic Transfer Provider - Reason: Patient not available)1639 ([facility] Unhold - Provider: Automatic Transfer Provider)1653 (Given - Provider: Veronica Moreno, RN) indomethacin (INDOCIN) 50 mg suppository (CANCELED) As needed, Starting on Wed09/05/24 at 1437, Intra-Op 1437 (Given - Provider: Yolande Jacobs, NAVIN) ioversoL (OPTIRAY 350) injection 0.01-500 mL (COMPLETED) 0.01-500 mL, intraductal, Once in imaging, contrast, Starting on Wed09/05/24 at 1421, For 1 dose 1435 (Contrast Given - Provider: Park Tom, RT - Comment: per MD) ondansetron (ZOFRAN) injection 4 mg(Linked Group 2) 4 mg, intravenous, Administer over 2 Minutes, Every 6 hours PRN, nausea, vomiting, if not tolerating PO, Starting on Wed09/01/24 at 1842, Indications: Nausea and Vomiting 1340 ([facility] Hold - Provider: Automatic Transfer Provider - Reason: Patient not available)1639 ([facility] Unhold - Provider: Automatic Transfer Provider) ondansetron ODT (ZOFRAN-ODT) disintegrating tablet 4 mg(Linked Group 2) 4 mg, oral, Every 6 hours PRN, nausea, vomiting, Starting on Wed09/01/24 at 1842, Indications: Nausea and Vomiting 1340 ([facility] Hold - Provider: Automatic Transfer Provider - Reason: Patient not available)1639 ([facility] Unhold - Provider: Automatic Transfer Provider) polyethylene glycol (MIRALAX) packet 17 g 17 g, oral, Daily PRN, constipation, Starting on Wed09/02/24 at 0626, Indications: constipation 1340 ([facility] Hold - Provider: Automatic Transfer Provider - Reason: Patient not available)1639 ([facility] Unhold - Provider: Automatic Transfer Provider) sodium chloride 0.9% flush 0.5-20 mL 0.5-20 mL, intra-catheter, As needed, line care, Starting on Wed09/01/24 at 1842, Flush volume based on line type and size. Flush before and after each use. 1340 ([facility] Hold - Provider: Automatic Transfer Provider - Reason: Patient not available)1639 ([facility] Unhold - Provider: Automatic Transfer Provider) sodium chloride 0.9% flush 0.5-20 mL 0.5-20 mL, intra-catheter, As needed, line care, Starting on 09/02/24 at 0625, Flush volume based on line type and size. Flush before and after each use. 1340 (JAN Hold - Provider: Automatic Transfer Provider - Reason: Patient not available)1639 ([facility] Unhold - Provider: Automatic Transfer Provider) Linked [...] Count Last Ordered Date First Ordered Date indomethacin (INDOCIN) 50 mg suppository 1 09/05/2024 albuterol 2.5 mg /3 mL (0.08 3 %) nebulizer solution 2.5 mg 1 09/04/2024 BUPivacaine (MARCAINE) 0.25 % (2.5 mg/mL) preservative free injection 1 09/04/2024 dextrose (D10W) 10% bolus 250 mL 2 09/04/20 24 09/03/2024 dextrose (GLUTOSE) 40 % gel 15 g 1 09/04/20 diphenhydrAMINE (BENADRYL) 5 0 mg/mL injection 12.5 mg 1 09/04/2024 glucagon injection 1 mg 1 09/04/2024 haloperidol (HALDOL) injection 1 mg 1 09/04 insulin lispro (HumaLOG, ADM ELOG) 100 unit/mL [...] 1 09/04/2024 sodium chloride 0.9% irrigation 1 acetaminophen (TYLENOL) tablet 1,000 mg 1 1 lidocaine (PF) (XYLOCAINE) 1 0 mg/mL (1 %) preservative free injection 2-10 mg 1 09/03/2024 sodium chloride 0.9% flush 0.5-20 mL 2 08/0909/01/2024 albuterol HFA (PROVENTIL HFA ,VENTOLIN HFA,PROAIR HFA) 90 mcg/actuation inhaler 2 puff 1 09/02/2024 aspirin enteric coated tablet 81 mg 1 09/02 bisacodyL (DULCOLAX) suppository 10 mg 1 bisacodyl EC (DULCOLAX EC) tablet 10 mg 1 1 Carrier Fluids for Secondary Infusion - 0.9% Sodium Chloride 2 09/02/2024 09/01/2024 polyethylene glycol (MIRALAX) packet 17 g 1 09/02/2024 ondansetron ODT (ZOFRAN-ODT) disintegrating tablet 4 mg 1 09/01/2024 Lab Orders Without Results Count Last Ordered D ate First Ordered Date POCT GLUCOSE DEVICE 11 09/06/2024 09/03/20 24 Diet Count Last Ordered Date First Orde [...] 09/04/2024 documented in this encounter Care Teams Industrial Pharmacist Relationship Specialty Start Date End Date Juan Retana MD [id number] [facility] PRIMARY CARE TEAM [address] [place] [address] PCP - General Internal Medicine 07/05/24 [facility], Alverto Gottliebran [address] [place] [address] Referring Physician Cardiology 07/05/24 Johnathan Mckee MD [id number] [place] [address] Consulting Physician General Surgery 08/11/24 Ever Anton MD [address] [facility] [address] [place] [address] Consulting Physician General Surgery 09/07/24 documented as of this encounter
--- OUTSIDE RECORDS SUMMARY | 2024-11-17 04:25 | XMS_ITS | Encounter Summary ---
Author Organization [facility] Address [address] [place] [address] Phone Care Team Providers Care Space Controller Name Role Phone Juan Retana MD Primary Care Provider [phone] [facility], Alverto Gutierrez Unavailable Johnathan Mckee MD Unavailable [phone] Praveen Garduno MD Unavailable [phone] Reason for Visit * Reason Onset Date Comments Cardiac Rehab Navigator Follow Up Call Encounter Details Date Type Department Care Team (Late st Contact Info) Description 10/26/2024 Telephone [facility] [address] [facility] [address] [place] [address] Praveena Garza EP-C Cardiac Rehab Navigator Follow Up Call Social History Tobacco Use Types Packs/Day Years Used Date Smoking Tobacco: Former Cigarettes 1.5 19.6 1 961 - 06/11/1980 Passive Smoke Exposure: Past Smokeless Tobacco: Never Alcohol Use Standard Drinks/Week Comments Yes 0 (1 standard drink = 0.6 oz pur e alcohol) rare - maybe 1 beer/month [facility] Utilities Answer Date Recorded In the [...] often do you attend chur ch or pentecostalism services? Never 09/05/2024 Do you belong to any clubs o r organizations such as scientologist groups, unions, fraternal or athletic groups, or [...] were you homeless or living in a half-way (including now)? No 09/05/2024 Personal Safety Answer Date Recorded Have you ever been in or are you currently in a harmful physical or emotional relationship or is someone making you feel afraid or unsafe? 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 No answer. Unable to LMOR (left message on recorder) x 1 with name, department and office phone number. Voicemail box was full. GEMENT ADVISOR documented in this encounter Plan of Treatment Not on file documented as of this encounter Visit Diagnoses Not on filedocumented in this encounter Care Teams Space Controller Relationship Specialty Start Date End Date Juan Retana MD [address] [facility] PRIMARY CARE TEAM [address] [place] [address] PCP - General Internal Medicine 07/05/24 [facility], Alverto Gottliebran [address] [place] [address] Referring Physician Cardiology 07/05/24 Johnathan Mckee MD [id number] [place] [address] Consulting Physician General Surgery 08/11/24 Praveen Garduno MD [address] [facility] [address] [place] [address] Consulting Physician General Surgery 09/07/24 documented as of this encounter
--- OUTSIDE RECORDS SUMMARY | 2024-11-17 04:26 | XMS_ITS | Encounter Summary ---
Author Organization [facility] Healthcare Address [address] [place] [address] Care Team Providers Care Stretching Machine Operator Name Role Phone Juan Retana MD Primary Care Provider [phone] [facility], Alverto Gutierrez Unavailable Johnathan Mckee MD Unavailable [phone] Encounter Details Date Type Department Care Team (Late st Contact Info) Description 08/31/2024 Orders Only [id number] [place] [address] Jose Enriquez MD [address] [place] [address] [place] [address] Social History Tobacco Use Types Packs/Day Years Used Date Smoking Tobacco: Former Cigarettes 1.5 19.6 1 961 - 06/11/1980 Passive Smoke Exposure: Past Smokeless Tobacco: Never Alcohol Use Standard Drinks/Week Comments Yes 0 (1 standard drink = 0.6 oz pur e alcohol) rare - maybe 1 beer/month [facility] Utilities Answer Date Recorded In the past 12 months has [employer] electric, gas, oil, or water company threatened [...] often do you attend chur ch or samaritan services? Never 09/05/2024 Do you belong to any clubs o r organizations such as cheondoism groups, unions, fraternal or athletic groups, or [...] any time in the [facility], were you homeless or living in a alf (including now)? No 09/05/2024 Personal Safety Answer Date Recorded Have you ever been in or are you currently in a harmful physical or emotional relationship or is someone making you feel afraid or unsafe? 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 Gender Identity Not on file Sexual Orientation Not on file documented as of this encounter Plan of Treatment Not on file documented as of this encounter Visit Diagnoses Not on filedocumented in this encounter Care Teams Stretching Machine Operator Relationship Specialty Start Date End Date Juan Retana MD [address] [facility] [address] [place] [address] PCP - General Internal Medicine 07[facility]05[facility] [address] [place] [address] Referring Physician Cardiology 07/05/24 Johnathan Mckee MD [address] [facility] [id number] [place] [address] Consulting Physician General Surgery 08/11/24 documented as of this encounter
--- OUTSIDE RECORDS SUMMARY | 2024-11-17 04:26 | XMS_ITS | Encounter Summary ---
Author Organization [facility] Healthcare Address [address] [place] [address] Care Team Providers Care Renderer Name Role Phone Juan Retana MD Primary Care Provider [phone] [facility], Alverto Gutierrez Unavailable Johnathan Mckee MD Unavailable Reason for Visit * Auth/Cert (Routine) Specialty Diagnoses / Procedures Referred By Contac t Referred To Contact Diagnoses Acute cholecystitis cholecystitis Procedures na Referral ID Status Reason Start Date Expiration Date Visits Re quested Visits Authorized [id number] 1 1 Encounter Details Date Type Department Care Team (Late st Contact Info) Description 09/04/2024 1:03 PM CDT - 09/04/2024 2:48 PM CDT Surgery [facility] Operating Room [address] [place] [address] Ever Anton MD [address] [facility] [address] [place] [address] LAPAROSCOPIC CHOLECYSTECTOMY Surgery Details Date/Time Status Location OR Service Patient Class Case Class Case Type Trauma Case? 09/04/2024 1:03 PM Posted [facility] OPERATING ROOM OR14w General Surgery Inpatient Urgent - 24 hours Panel 1 Procedure LRB Anes Op Region Wound Class Comments LAPAROSCOPIC CHOLECYSTECTOMY N/A General Abdomen Class IV - Dirty or Infected RQTF OR CASE CAN BE HANDED OFF TO DR. ANTON / MICHAEL BAGLEY Surgeon Surgeon Role Service Panel Ever Anton MD Primary General Surgery 1 documented in this encounter Social History Tobacco Use Types Packs/Day Years Used Date Smoking Tobacco: Former Cigarettes 1.5 19.6 1 961 - 06/11/1980 Passive Smoke Exposure: Past Smokeless Tobacco: Never Alcohol Use Standard Drinks/Week Comments Yes 0 (1 standard drink = 0.6 oz pur e alcohol) rare - maybe 1 beer/month [facility] Utilities Answer Date Recorded In the past 12 months has th e electric, gas, oil, or water company [...] often do you attend chur ch or alevism services? Never 09/05/2024 Do you belong to [...] any time in the past [address] [facility], were you homeless or living in a long term (including now)? No 09/05/2024 Personal Safety Answer Date Recorded Have you ever been in or are you currently in a harmful physical or emotional relationship or is someone making you feel afraid or unsafe? 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 Gender Identity Not on file Sexual Orientation Not on file documented as of this encounter Last Filed Vital Signs Vital Sign Reading Time Taken Comments Blood Pressure 126/69 09/04/2024 12:26 PM CDT Pulse 74 09/04/2024 12:26 PM CDT Temperature 36.3 ??C (97.3 ??F) 09/04/2024 1 2:31 PM CDT Respiratory Rate 20 09/04/2024 12:2 6 PM CDT Oxygen Saturation 97% 09/04/2024 12: 26 PM CDT Inhaled Oxygen Concentration - - [...] Patient Age - 74 yrs Patient - [id number] [facility] - [id number] Document Creation Date: 09/07/2024 Admitting Provider, MD: Jose Enriquez MD Discharge Provider, : Giovanny Garcia MD Primary Care Physician at Discharge: Juan Retana MD [phone] Admission Date: 09/01/2024 Discharge Date/time: 09/07/2024 Admission Location: [facility] LOS - LOS: 6 days DETAILS [...] completed 3-vessel CABG [place] 07[place]24 at the [place], subsequently with pacemaker placement for heart block.He presented to [facility] on 09/01 for abd pain - CT showed acute cholecystitis. Surgery there declined to intervene because of his recent cardiac surgery and he was transferred to [facility]. Upon arrival he was seen by [...] weeks if possible, with Dr. Mckee and [facility] Cardiology as scheduled Allergies: Tramadol Discharge Medications: [...] were sent to [facility] - [place], [place] - [address] [facility] [address] [facility] [address] amoxicillin-clavulanate 875-125 mg per tablet HYDROcodone-acetaminophen 5-325 [...] Center 09/12/2024 1:15 PM Johnathan Mckee MD [facility] 11/15/2024 12:30 PM CARD DEVICE CHECK-CAM 8B CAR CAM 8B Cardiology 11/15/2024 1:00 PM Chrissy Bermudez, JUSTYN CAR CAM 8B Cardiology Contact Information for Follow-ups [address] [address] Next Steps: Follow up Questions: Please select the performing region: External Order To loc/pos: [facility] Select a phase: Phase 2 # of visits: 36 Referral Status: External - Ready to Schedule [facility] Home Care Services Specialty: Home Health and Hospice [address] [facility] [address] Next Steps: Follow up Questions: Service Line: [...] Critical Care Relationship: Consulting Physician [address] [place] [address] Next Steps: Follow up Instructions: Follow up with Dr Anton in 2weeks. Please call [phone] to make appointment. Questions: Instructions for follow-up (appointment date and time): Follow up with Dr Anton in 2weeks. Please call [phone] to make appointment. To provider: EVER ANTON Omar M., MD Specialty: General Surgery, Surgical Critical Care Relationship: Consulting Physician [address] [place] [address] Next Steps: Follow up Comments: Surgery in 2-4 weeks if possible for postop check Questions: To provider: EVER ANTON Please schedule an appointment with the following provider(s): [facility] [address] [facility] [address] [facility] Home Care Services [address] [facility] [address] Ever Anton MD [address] [place] [address] Anton in 2weeks. Please call [phone] to make appointment. Ever Anton MD [address] [place] [address] ANCILLARY INFORMATION Other Procedures & Diagnostic Tests: [...] appropriate directional flow. Electronically signed by: Jeremy Edawrds M.D. ECG 12 lead Result Date: 09/02/2024 Vent Rate: 92 bpm RR Interval: 650 msec NV Interval: 154 msec QRS Duration: 151 msec QT Interval: 406 msec QTC Interval: 456 msec P-R-T Breeding: 37 - 267 - 106 degrees IMPRESSION: ELECTRONIC VENTRICULARPACEMAKER ABNORMAL RHYTHM ECG NO PRIOR TRACING Electronically Signed By: Mynor Arnett MD [facility] Recent Labs: Recent Labs Lab Units 09/07/24 [...] 0.6 0.0 0.1 Recent Labs Lab Units 09/07/24 0609/06/24 1232 09/05/24 0841 09/05/24 0527 SODIUM mmol/L 135 145 -- 139 POTASSIUM PLASMA mmol/L 4.1 3.6 -- 4.3 CHLORIDE mmol/L 104 107 -- 105 CO2 mmol/L 19* 18* -- 22 BUN SERUM mg/dL 24 20 -- 12 CREATININE mg/dL 1.11 1.09 -- 0.83 [id number] mL/min/1.73 m2 71 72 -- >90 GLUCOSE mg/dL 111 123 -- 139 POC GLUCOSE MONITOR -- -- < > -- CALCIUM mg/dL 7.6* 7.4* -- 8.3* ALBUMIN g/dL 2.4* 2.7* -- 3.1* PHOSPHORUS PLASMA mg/dL 3.2 3.1 -- 4.4 < > = values in this interval not displayed. Recent Labs Lab Units 09/07/2461909/06/24 1232 09/06/24 0633 09/05/24 0841 09/05/24 05 SODIUM mmol/L 135 145 -- -- 139 [...] displayed. Recent Labs Lab Units 09/07/2461909/06/24 1232 09/05/24 05 ALK PHOS Units/L 156* 145* 175* BILIRUBIN TOTAL mg/dL 0.3 0.3 0.5 BILIRUBIN DIRECT mg/dL 0.2 0.2 0.3 TOTAL PROTEIN g/dL 6.0* 6.2* 6.8 ALT Units/L 20 21 24 AST Units/L 38 35 42 Recent Labs Lab Units 09/02/24 0938 MAGNESIUM mg/dL 1.9 Lab Results Component Value Date GLUCOSE 111 09/07/2024 GLUCOSE 123 09/06/2024 GLUCOSE 141 09/06/2024 Implant: Implants ICD Medtronic Inc Cardiac Putnam Hf 2 Chamber Df4 Inline Cnctr Is4 [id number] - [id number] - [id number] - Implanted Inventory item: MED[employer]ON[employer] INC CARDIAC COBALT HF 2 CHAMBER DF4 INLINE CNCTR IS4 [id number] Model/Cat number: [id number] Serial number: [id number] Head Of Research & Insights: Medtronic Inc Implant Date: 08/04/2024 As of 08/04/2024 Status: Implanted Pacemaker-icd Generator Implant Site: Chest wall - subcutaneous Pacemaker-icd System Maximum Capability: CRTD Pacemaker, Icd Underlying Rhythms: Atrioventricular block Pacemaker, Icd Generator Current Programmed Mode: DDD Pacemaker Atrial Lead Threshold (v): 1 Pacemaker Atrial Lead Pulse Duration (ms): 0.4 Pacemaker Rv Lead Threshold (v): 0.5 Pacemaker Ventricular Lead Pulse Duration (ms): 0.4 Control Valve Mechanic Device Lv Lead Threshold (v): 1 Control Valve Mechanic Device Lv Lead Pulse Duration (ms): 0.4 Pacemaker-equipment lead Ra Sensing Amplitude (mv): 2.3 Pacemaker-equipment lead Rv Sensing Amplitude (mv): 6.6 Atrial Impedance: 589 Rv Impedance: 437 Lv Impedance: 418 Lead Shock Impedance Ohms: 83 Pacemaker Basic Pacing Rate: 60 Pacemaker-icd Av Delay (ms): 180 Pacemaker-icd Atrial Output Voltage (v): 3.5 Pacemaker-icd Atrial Pulse Duration (ms): 0.4 Pacemaker-icd Rv Output Voltage (v): 3.5 Pacemaker-icd Rv Pulse Duration (ms): 0.4 Control Valve Mechanic Lv Output Voltage (v): 2.5 Control Valve Mechanic Lv Pulse Duration (ms): 0.4 Presenting Rhythm: BIV Paced Sensor Monitored Heart Rate: 130 Lead Medtronic Inc Sprint Quattro Secure 62cm Tripolar Screw In Extendable [id number] - [id number] - [id number] - Implanted Inventory item: [employer] Sprint Quattro Secure 62cm Tripolar Screw In Extendable [id number] Model/Cat number: [id number] Serial number: [id number] Head Of Research & Insights: Medtronic Inc Implant Date: 08/04/2024 As of 08/04/2024 Status: Implanted Pacemaker-icd Generator Implant Site: Chest wall - subcutaneous Medtronic Inc Attain Stability Quad Mri Surescan Active Fixation Lv Lead 88cm [id number] - [id number] - [id number] - Implanted Inventory item: [employer] INC ATTAIN STABILITY QUAD MRI SURESCAN ACTIVE FIXATION LV LEAD 88CM [id number] Model/Cat number: [id number] Serial number: [id number] Head Of Research & Insights: Medtronic Inc Implant Date: 08/04/2024 As of 08/04/2024 Status: Implanted Pacemaker-icd Generator Implant Site: Chest wall - subcutaneous Medtronic Inc Capsurefix Novus 6.2fr 2mm 52cm Bipolar Screw In Implantable Latex Free 5076-52 - [id number] - [id number] - Implanted Inventory item: [employer] INC Capsurefix Novus 6.2fr 2mm 52cm Bipolar Screw In Implantable Latex Free 5076-52 Model/Cat number: [id number] Serial number: [id number] Head Of Research & Insights: Medtronic Inc Implant Date: 08/04/2024 As of 08/04/2024 Status: Implanted Pacemaker-icd Generator Implant Site: Chest wall - subcutaneous Other - see comments Medtronic Inc Tyrx Absorbable Antibacterial Envelope-Large 3.3x2.9in [id number] - [id number] - Implanted Inventory item: MED[employer]ON[employer] INC TYRX ABSORBABLE ANTIBACTERIAL ENVELOPE-LARGE 3.3X2.9IN [id number] Model/Cat number: [id number] Head Of Research & Insights: Medtronic Inc Lot number: [id number] As of 08/04/2024 Status: Implanted Stent [employer] Wanda 10fr 7cm Biliary Stent [id number] - [id number] - Implanted Bile Duct Inventory item: BOSTON [employer] WANDA 10FR 7CM BILIARY STENT [id number] Model/Cat number: [id number] Head Of Research & Insights: [employer] Wanda Lot number: [id number] As of 09/05/2024 Status: Implanted Luna Medical Inc Suárez Flexi-Stent 5fr 3cm Small Pigtail Flexible .035in Stent 6551 - [id number] - Implanted Pancreas Inventory item: Warwick [employer]p INC Suárez Flexi-stent 5fr 3cm Small Pigtail Flexible .035in Stent 6551 Model/Cat number: [id number] Head Of Research & Insights: Nubity Lot number: [id number] As of 09/05/2024 Status: Implanted Type Not Specified Arthrex Inc Device Closure Fibertape Sternal [place]cl[place] Blunt Needle Ar-7289 - [id number] - Implanted Sternum Inventory item: ARTHREX INC Device Closure Fibertape Sternal [place]clage Blunt Needle AR-7289 Model/Cat number: [id number] Head Of Research & Insights: ArthCartagenia Lot number: [id number] Device identifier: [id number] Device identifier type: [id number] As of 07/24/2024 Status: Implanted Arthrex Inc Device Closure Fibertape Sternal [place]cl[place] Cutting Needle Ar-7288 - [id number] - Implanted Sternum Inventory item: ARTHREX INC Device Closure Fibertape Sternal [place]cl[place] Cutting Needle AR-7288 Model/Cat number: [id number] Head Of Research & Insights: [employer]Volumes Lot number: [id number] Device identifier: [id number] Device identifier type: GS1 As of 07/24/2024 Status: Implanted Eliseo [employer] Inc Plate Bone Low Profile 6 Hole H Shape Sternum Ti 115.102.06 - [id number] - Implanted Sternum Inventory item: ELISEO [employer]OMET INC Plate Bone Low Profile 6 Hole H Shape Sternum Ti 115.102.06 Model/Cat number: [id number] Head Of Research & Insights: Eliseo [employer] Inc As of 07/24/2024 Status: Implanted Eliseo [employer] Inc Plate Bone Low Profile 6 Hole O Shape Sternum Ti 115.104.06 - [id number] - Implanted Sternum Inventory item: ELISEO [employer] Plate Bone Low Profile 6 Hole O Shape Sternum Ti 115.104.06 Model/Cat number: [id number] Head Of Research & Insights: Eliseo [employer] Inc As of 07/24/2024 Status: Implanted Eliseo [employer] Inc Screw Bone Slf Drl Full Thread Locking 3.5x14mm Ti 100.035.14 - [id number] - Implanted Sternum Inventory item: ELISEO [employer] Screw Bone Slf Drl Full Thread Locking 3.5x14mm Ti 100.035.14 Model/Cat number: [id number] Head Of Research & Insights: Eliseo [employer] Inc As of 07/24/2024 Status: Implanted Eliseo [employer] Inc Screw Bone Slf Drl Full Thread Locking 3.5x16mm Ti 100.035.16 - [id number] - Implanted Sternum Inventory item: ELISEO [employer] INC Screw Bone Slf Drl Full Thread Locking 3.5x16mm Ti 100.035.16 Model/Cat number: [id number] Head Of Research & Insights: Eliseo [employer]omet Inc As of 07/24/2024 Status: Implanted Jeff [employer] Patton Distal Marker Radiology Stainless Steel Sterile Amgm-D - [id number] - Implanted Heart Inventory item: GENESEE [employer]OM[employer] Patton Distal Marker Radiology Stainless Steel Sterile AMGM-D Model/Cat number: [id number] Head Of Research & Insights: [employer] Lot number: [id number] Device identifier: [id number] Device identifier type: HIBC As of 07/24/2024 Status: Implanted General Precautions (If Blank, None Found): Weight Bearing Restrictions: No Weight Bearing Restrictions: No Isolation Status: No active isolations Nutritional Status and in-house recommendations: Dietary Orders (From admission, onward) Start Ordered 09/06/24 1103 Adult Diet Restricted; Fat Controlled Diet effective now Question Answer Comment ([facility]) Diet type Restricted Fat / Sodium [...] Circular 09/06/24 0822 Becca-wound Assessment Dry;Intact 09/07/24 08 Dressing ABD;Gauze 09/07/24829 Closure Approximated;Wound glue 09/07/24 0830 Wound 09/04/24 Incision Abdomen (Active) Dressing Status Leaking;Saturated;Changed 09/07/24 0830 Site Assessment Color appropriate for ethnicity 09/06/24 2120 Shape & Pattern Circular 09/06/24 0822 Becca-wound Assessment Dry;Intact 09/07/24829 Dressing ABD;Gauze 09/07/24829 [...] 2 (two) times a day 08/11/2024 5 MULTIVITAMIN ORAL Take 1 tablet by mouth [...] Primary Physician: Juan Retana MD Attending Provider: Goivanny Garcia MD Admission Date: 09/01/2024 Length of [...] discharge from surgical perspective. Ever Anton MD, [facility] Department of Surgery [...] goals OT Time Calculation OT Start Time 07 OT Stop Time 08 OT Time Calculation [...] independent. 09/05/24 09/12/24 -- * Isabella Bell DEVELOPMENT PLANNER - 09/07/2024 8:24 AM CDT Gastroenterology Daily [...] Garcia MD - 09/06/2024 12:19 PM CDT [facility] Hospitalist Service Progress Note Chief complaint (on [...] on 07/[address] [place] at the [place]. Seen by Cardiology on 09/02, no active [...] health - will need to coordinate with [place], as well as transportation back to [place] Plan for dc home tomorrow if arrangements [...] Pertinent History 74 y/o M admitted to [facility] for acute abdominal pain. Found to have inflammed gallbladder now s/p laparoscopic cholecystectomy on 09/04 and ERCP on 09/05. Pt with CABG 07/24and and pacer placement at [facility]. Other medical evaluation ongoing. 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 Ambulated in digital field service technician socks and noted with supination of feet [...] Date Expected End Date End Date PT [facility] [place] [place] 1 09/06/24 09/20/24 -- Goal Details: Pt to perform bed mobility with independence. Goal Start Date Expected End Date End Date PT [facility] 2 09/06/24 09/20/24 -- Goal Details: Pt to perform sit to/from stand and bed to/from chair with Wheeled walker or Least restrictive assistive device and Modified independent . Goal Start Date Expected End Date End Date PT [facility] 3 09/06/24 09/20/24 -- Goal Details: Pt to ambulate >/= 150 ft with Least restrictive assistive device and Modified independent Goal Start Date Expected End Date End Date PT [facility] 4 09/06/24 09/20/24 -- Goal Details: Pt to ascend/descend 2 stairs with SBA x 1 and rails and/or assistive device as needed per home set up. Goal Start Date Expected End Date End Date PT [facility] 5 09/06/24 09/20/24 -- Goal Details: Pt [...] 70 - 199 mg/dL Ever Anton MD, [facility] Department of Surgery ACCS, Division of General Surgery 09/06/2024 9:41 AM * Clarissa Beckham, DEVELOPMENT PLANNER - 09/06/2024 9:25 AM CDT Gastroenterology Daily [...] in place schedule EGD for removal. Clarissa Beckham, JUSTYN 09/06/2024 This note was transcribed using [employer] Speech Recognition software. As a result, there may be unintended grammar and spelling errors. Every attempt is made to have correct dictation. If there are any questions or major errors, please contact me. Cosigned by John Pink MD at 09/06/2024 7:26 PM CDT * Giovanny Garcia MD - 09/05/2024 1:45 PM CDT [facility] Hospitalist Service Progress Note Chief complaint (on [...] - MARION) Biventricular cardiac pacemaker in situ # Acute [...] - MARION) Biventricular cardiac pacemaker in situ 74 y.o. [...] was scheduled to begin cardiac rehab at [place] sometime this week.) Care plan discussed with [...] the resident or JAMAL. Theo Rick MD officer lieutenant Section of Acute and Critical Care Surgery [facility] * Candi Valdivia, [...] Patient Name: Abiel Fink : 1950 Room/Bed: [place] [address]/[address] Insurance: [place] Progress Note Silk Screen Painter: CAMRON Judge Date: 09/05/2024 Referring Diagnosis for Cardiac Rehab - s/p CABG x 3, CHF 26% Education Provided Explained my role as a Cardiac Rehab Navigator (CRN). Provided Cardiac Rehab education to patient. Family was not present. Patient was provided with Cardiac Rehab education folder as well as a [facility] Heart Education booklet. Risk Factors: DM, HLD, [...] fats)and exercise. Advised patient to consult their nursing home aide, nurse, and/or physician if they have any questions about their diet/nutrition. Cardiac Rehab: Gave patient options of facilities for Outpatient Cardiac Rehab (OCR) in their community. Explained OCR program. Patient expressed knowledge towards local OCR program - patient prefers [facility]. I anticipate no barriers for patient to [...] working towards eventually trying to reach the [employer] recommendations in regards to exercise: [...] when it would be appropriate to call [facility]'s office, go to the ER, or call 911. Insurance Coverage: Briefly explained general insurance coverage for OCR, but assured patient that OCR facility will usually call insurance and inform patient of more of an approximate coverage. Post-Discharge: Explained process between discharge from hospital, and getting set up in an OCR program - follow upwith Box Person, CRN follow up calls, OCR program contact. Conclusion Patient seems likely to participate in OCR. Reassured patient of importance and health care provider support of OCR. Patient verbalized understanding of education, and all questions were answered to the best of my ability. Will complete order for OCR to be sent to [facility]. Thank you for allowing us to urology physician assistant in the care of this patient, please don't hesitate to contact the Cardiac Rehab Navigator office with any questions: [phone]. * Iggy Wu, OT - 09/05/2024 8:02 AM CDT Occupational Therapy Evaluation 09/05/24 0637 General Chart Reviewed Yes Session Type Evaluation OT Received On 09/05/24 Safe Environment Arm band checked;Patient found in supine Subjective Comment Just so painful. Additional Pertinent History 74 y/o M admitted to [facility] for acute abdominal pain. Found to have inflammed gallbladder now s/p cholycystectomy on 09/04. Pt also with noted liver sludge and ERCP plannedfor today. Of note, pt with CABG and and pacer placement at [facility] on 08/06. Other medical evaluation ongoing. Medical [...] cane at baseline. Prior Function Level of [place] Independent with ADLs;Independent functional transfers;Independent with ambulation;Independent with homemaking with ambulation Lives With Son Receives Help From Family (Son-->available as needed) Driving Yes ( whenever I can with my heart srugery. 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 Prior Function Comments Pt reports being fully independent prior to admission. CABG on 08/[address] [facility] with pacer placement. Grooming Grooming: Where assessed [...] was scheduled to begin cardiac rehab at [place] sometime this week.) OT Frequency during current [...] PPM on 08/04 is transferred from a [facility] for acute cholecystitis given recent CABG. [...] PRN, Jose Enriquez MD, 650 mg at 09/03/242 albuterol HFA (PROVENTIL HFA,VENTOLIN HFA,PROAIR HFA) 90 [...] joint swelling or tenderness,no limitation of movement. CAGE/VAULT SUPERVISOR: A and O x 3, speech is [...] questions Discussed with care team Dr.Sarada Willem MD,[facility] I used a voice recognition software for dictation. This may alter words unintentionally * Deanna Bangura MD - 09/03/2024 11:04 AM CDT Hospitalist Daily Progress 09/01/2024 Juan Retana MD Charles Eugene Lee 74 y.o. Reason for Hospitalization: RUQ abdominal [...] PRN, Josefa Bell MD, 1 tablet at 09/03/24818 HYDROmorphone (PF) (DILAUDID) injection 0.2 mg, 0.2 [...] joint swelling or tenderness,no limitation of movement. CAGE/VAULT SUPERVISOR: A and O x 3, speech is [...] questions Discussed with care team Dr.Sarada Willem MD,[facility] I used a voice recognition software for dictation. This may alter words unintentionally * Sloan Yanez MD - 09/03/2024 8:13 AM CDT Images from the original note were not included. [facility] [place] [address] [place] [address], [address], [facility] [address] [place] [id number] Cardiology Electrophysiology MD Matthew Salter,, MD Rihcard Hammer, MD Iftikhar Chiang, MD Nba Tariq, MD Jamey Chaves, MD Preston Daley, MD Regino Rivera, MD Madai Porras, HARBORMASTER Sylvester Cotton, MD Soheila Garza, HARBORMASTER MD Natalie Gibson, JUSTYN Yanez, MD Kandace Edwards, JUSTYN Alexandra, JUSTYN Reveles, DEVELOPMENT PLANNER Richard Rogers, PA Cardiology Daily Progress Note Patient [...] injection 5,000 Units 5,000 Units subcutaneous Q8H [facility] isosorbide mononitrate ER (IMDUR) extended release tablet [...] cardiovascular surgery # CABG x3 July 2024 [place] - CABG x3 on 07/24/2024,BURGESS to LAD, left radial to OM, SVG to PDA at [place] - no acute signs of ACS - No chest - elevated and flat troponin - unremarkable EKG with biventricular paced rhythm - sternal wound looks clean dry and intact - Based on history was progressing as expected, and was discharged to home from subacute rehab and tolerating activity well until abdominal pain started - planning on attending cardiac rehab at [place], via the [facility] - no further cardiac workup indicated at this time unless patient develops chest pain in which casewe will repeat EKG and cardiac enzymes - aspirin and Plavix currently on hold given possible need for abdominal procedures # ischemic cardiomyopathy - EF 26% last month after surgery At [place] - Moderate functional mitral regurgitation - appears well compensated at this time with no signs of volume overload - continue carvedilol 3.125 b.i.d. and isosorbide mononitrate 15 mg daily which was the only GDMT at discharge - will not attempt aggressive GDMT titration during acute cystitis episode # Complete heart block # DYNAMICIST D - Medtronic DYNAMICIST D, due to complete heart block with [...] This note was dictated in part using [employer] voice recognition software. Despite careful review of [...] him scheduled for today. Ever Anton MD, FACS [facility] [employer] Department of Surgery [...] with complaints of pain. Was seen in [facility] and was diagnosed with cholecystitis. Patient was recently admitted to the hospital and discharged on 08/11/2024 status post CABG x3 on 07/24 and permanent pacemaker regular implantation on 08/04. Surgeon from [facility] did not agree to do the surgery recommended transferring patient to [place] given the recent CT surgery. Outside facility [...] (LR) infusion 75 mL/hr 75 mL/hr (09/02/24 6659) sodium chloride 0.9% infusion 75 mL/hr 75 mL/hr (09/01/24 7807) PRN Medications acetaminophen albuterol HFA bisacodyl EC OR bisacodyL sodium chloride 0.9% sodium chloride 0.9% HYDROcodone-acetaminophen HYDROmorphone ondansetron ODT OR ondansetron polyethylene glycol sodium chloride 0.9% sodium chloride 0.9% VITAL SIGNS Vitals Vitals: 09/01/24200509/02/24 0006 09/02/24 0448 09/02/24 0810 [...] Rate: 92 bpm RR Interval: 650 msec NV Interval: 154 msec QRS Duration: 151 msec QT Interval: 406 msec QTC Interval: 456 msec P-R-T Breeding: 37 - 267 - 106 degrees IMPRESSION: ELECTRONIC VENTRICULAR PACEMAKER ABNORMAL RHYTHM ECG Electronically Signed By: DEVICE CHECK - IN OFFICE Result Date: 08/15/2024 Narrative: Interpretation Summary: Battery and Leads (BL) Normal parameters noted on battery and lead(s) --- Estimated battery longevity 8.3 years. Presenting Rhythm (NV) Atrial Sensing-BiVentricularPacing (-BiVP) --- /BiVP 85 bpm. [...] -Given CHB and LVEF 26%, presented for DYNAMICIST-D 08/04/2024. 3) ICM -LVEF 40-50% pre op, [...] recorded. Images were taken in SHELL and BRUNEIAN views to ensure appropriate lead placement. The [...] device programming: - RA Lead (#5076 S/N [id number]): Sensing 2.5 mV, Pacing threshold 0.75 V at 0.4 ms, Imp 608 Ohm - RV Lead (#6935M-62 [id number]): Sensing 6.6 mV, Pacing threshold 0.75 V at 0.4 ms Imp 456 Ohm - LV Lead (#4798-88 S/N [id number]): Sensing NA mV, Pacing threshold 1.0 V at 0.4 ms, Imp 418 Ohm - Device: DYNAMICIST-D (Cobolt HF Quad #[id number] S/N [id number]), programmed DDD 60-130 BPM - Zones: VF> [...] days post-discharge Lucy Meyer MD Clinical Cardiac Cruise Guide X-ray chest 2 views Result Date: 08/05/2024 [...] test: 08/03/2024 Type of test: Limited TTE [facility] #:0 Date of : 1950 (M) Automobile Damage Appraiser: Jojo Chapa RDCS Referring Physician: CALEB ELIZABETH MD Contrast Agent: 0.8 ml Optison Administered, (2.2 ml wasted). Contrast Administered by: SKILLS AUDITOR Supervised/Interpreted by: Eric Roberts MD Diagnosis: chf Location: [facility] Reason for test: Evaluate LV prior to [...] 2=Hypo 3=Akinetic 4=Dyskin./Aneurysm 0=Not visualized) Parasternal Long Breeding:MAS=2 BAS=2 MIL=2 LORNE=2 Parasternal Short Breeding:MAS=2 MIS=2 MS=2MIL=2 MAL=2 MA=2 Apical 4 Chambers:=2 MIS=2 BIS=2 BAL=2 MAL=2 AL=2 AC=2 Apical 2 Chambers:AI=2 MS=2 BI=2 BA=2 MA=2 AA=2 AC=2 LV Global [...] Valve: mild TV regurgitation Pulmonic Valve: Mild NV AV Regurgitation: Mid AR AV Stenosis: AV Area: cm2 AV Pressure Gradient (mmHg): Mean: 0, Peak:0 MV Regurgitation:Mod MR MV Stenosis: MV Area: cm2 MV Pressure Gradient (mmHg): Mean: 0 MV ERO: cm Regurg. Vol.: ml/beat Regurg. Frac.: % PA Pressure: 30-35 mmHg DOPPLER/COLOR FOLOW DOPPLER COMMENTS: Mid AR, Mod MR, mild TV regurgitation, Mild NV. Diastolic function: indeterminate CONTRAST: 0.8 ml Optison [...] MD By signing this report, the attending circulation librarian certifiesthat he or she has personally supervised [...] with complaints of pain. Was seen in [facility] and was diagnosed with cholecystitis. Patient was recently admitted to the hospital and discharged on 08/11/2024 status post CABG x3 on 07/24 and permanent pacemaker regular implantation on 08/04. Surgeon from [facility] did not agree to do the surgery recommended transferring patient to [place] given the recent CT surgery. Outside facility [...] Rate: 92 bpm RR Interval: 650 msec NV Interval: 154 msec QRS Duration: 151 msec QT Interval: 406 msec QTC Interval: 456 msec P-R-T Breeding: 37 - 267 - 106 degrees IMPRESSION: ELECTRONIC VENTRICULAR PACEMAKER ABNORMAL RHYTHM ECG Electronically Signed By: DEVICE CHECK - IN OFFICE Result Date: 08/15/2024 Narrative: Interpretation Summary: Battery and Leads (BL) Normal parameters noted on battery and lead(s) --- Estimated battery longevity 8.3 years. Presenting Rhythm (NV) Atrial Sensing-BiVentricularPacing (-BiVP) --- /BiVP 85 bpm. [...] -Given CHB and LVEF 26%, presented for DYNAMICIST-D 08/04/2024. 3) ICM -LVEF 40-50% pre op, [...] recorded. Images were taken in SHELL and BRUNEIAN views to ensure appropriate lead placement. The [...] device programming: - RA Lead (#5076 S/N [id number]): Sensing 2.5 mV, Pacing threshold 0.75 V at 0.4 ms, Imp 608 Ohm - RV Lead (#6935M-62 [id number]): Sensing 6.6 mV, Pacing threshold 0.75 V at 0.4 ms Imp 456 Ohm - LV Lead (#4798-88 S/N [id number]): Sensing NA mV, Pacing threshold 1.0 V at 0.4 ms, Imp 418 Ohm - Device: DYNAMICIST-D (Cobolt HF Quad #[id number] S/N [id number]), programmed DDD 60-130 BPM - Zones: VF> [...] days post-discharge Lucy Meyer MD Clinical Cardiac Cruise Guide X-ray chest 2 views Result Date: 08/05/2024 [...] Hospital #:0 Date of : 1950 (M) Automobile Damage Appraiser: Jojo Chapa RDCS Referring Physician: CALEB ELIZABETH MD Contrast Agent: 0.8 ml Optison Administered, (2.2 ml wasted). Contrast Administered by: SKILLS AUDITOR Supervised/Interpreted by: Eric Roberts MD Diagnosis: chf Location: [facility] Reason for test: Evaluate LV prior to [...] 2=Hypo 3=Akinetic 4=Dyskin./Aneurysm 0=Not visualized) Parasternal Long Breeding:MAS=2 BAS=2 MIL=2 LORNE=2 Parasternal Short Breeding:MAS=2 MIS=2 MS=2 MIL=2 MAL=2 MA=2 Apical 4 Chambers:=2 MIS=2 BIS=2 BAL=2 MAL=2 AL=2 AC=2 Apical 2 Chambers:AI=2 MS=2 BI=2 BA=2 MA=2 AA=2 AC=2 LV Global [...] Valve: mild TV regurgitation Pulmonic Valve: Mild NV AV Regurgitation: Mid AR AV Stenosis: AV Area: cm2 AV Pressure Gradient (mmHg): Mean: 0, Peak:0 MV Regurgitation: Mod MR MV Stenosis: MV Area: cm2 MV Pressure Gradient (mmHg): Mean: 0 MV ERO: cm Regurg. Vol.: ml/beat Regurg. Frac.: % PA Pressure: 30-35 mmHg DOPPLER/COLOR FOLOW DOPPLER COMMENTS: Mid AR, Mod MR,mild TV regurgitation, Mild NV. Diastolic function: indeterminate CONTRAST: 0.8 ml Optison [...] MD By signing this report, the attending circulation librarian certifies that he or she has personally [...] 09/02/2024 Primary Care Physician: Juan Retana MD [phone] SUBJECTIVE: Patient is a 74 y.o. male with a PMHx asthma, diabetes, hiatal hernia, hypertension, sleep apnea, coronary artery disease with bradycardia, complete heart block, who presents to the ED with a chief complaint of abdominal pain. HPI: Patient presented to outside facility hospital with complaints of pain. Was seen in [facility] and was diagnosed with cholecystitis. Patient was recently admitted to the hospital and discharged on 08/11/2024 status post CABG x3 on 07/24 and permanent pacemaker regular implantation on 08/04. Surgeon from [facility] did not agree to do the surgery recommended transferring patient to [place] given the recent CT surgery. Outside facility [...] Hawkins was consulted, patient was transferred to [facility] further management. Patient is currently on asa [...] 2006 94 Resp 09/01/24 1840 18 BP 09/01/24 1840 142/80 SpO2 09/01/241839 97 % Temp src 09/01/24 184 Oral Heart Rate Source 09/01/241839 Monitor Patient Position 09/01/241839 Lying BP Location 09/01/24 184 Left arm FiO2 (%) -- Most Recent [...] Estimated battery longevity 8.3 years. Presenting Rhythm (NV) Atrial Sensing-BiVentricularPacing (-BiVP) --- /BiVP 85 bpm. [...] -Given CHB and LVEF 26%, presented for DYNAMICIST-D 08/04/2024. 3) ICM -LVEF 40-50% pre op, [...] recorded. Images were taken in SHELL and BRUNEIAN views to ensure appropriate lead placement. The [...] device programming: - RA Lead (#5076 S/N [id number]): Sensing 2.5 mV, Pacing threshold 0.75 V at 0.4 ms, Imp 608 Ohm - RV Lead (#6935M-62 [id number]): Sensing 6.6 mV, Pacing threshold 0.75 V at 0.4 ms Imp 456 Ohm - LV Lead (#4798-88 S/N [id number]): Sensing NA mV, Pacing threshold 1.0 V at 0.4 ms, Imp 418 Ohm - Device: DYNAMICIST-D (Cobolt HF Quad #[id number] S/N [id number]), programmed DDD 60-130 BPM - Zones: VF> [...] days post-discharge Lucy Meyer MD Clinical Cardiac Cruise Guide X-ray chest 2 views Result Date: 08/05/2024 [...] No pneumothorax. Stable cardiomediastinal silhouette. Dictated by: Jerord Ortiz MD The radiology attending physician has personally reviewed this study, and had reviewed and/or edited this written report and agrees with it.Electronically signed by: Serafin Terrell M.D. Transthoracic Echo (TTE) Limited/Followup Result Date: 08/03/2024 Narrative: Patient name: Abiel Fink Date of test: 08/03/2024 Type of test: Limited TTE Hospital #:0 Date of : 1950 (M) Automobile Damage Appraiser: Jojo Chapa RDCS Referring Physician: CALEB ELIZABETH MD Contrast Agent: 0.8 ml Optison Administered, (2.2 ml wasted). Contrast Administered by: SKILLS AUDITOR Supervised/Interpreted by: Eric Roberts MD Diagnosis: chf Location: [facility] Reason for test: Evaluate LV prior to [...] 2=Hypo 3=Akinetic 4=Dyskin./Aneurysm 0=Not visualized) Parasternal Long Breeding:MAS=2 BAS=2 MIL=2 LORNE=2 Parasternal Short Breeding:MAS=2 MIS=2 MS=2 MIL=2 MAL=2 MA=2 Apical 4 Chambers:=2 MIS=2 BIS=2 BAL=2 MAL=2 AL=2 AC=2 Apical 2 Chambers:AI=2 MS=2 BI=2 BA=2 MA=2 AA=2 AC=2 LV Global [...] Valve: mild TV regurgitation Pulmonic Valve: Mild NV AV Regurgitation: Mid AR AV Stenosis: AV Area: cm2 AV Pressure Gradient (mmHg): Mean: 0, Peak:0 MV Regurgitation: Mod MR MV Stenosis: MV Area: cm2 MV Pressure Gradient (mmHg): Mean: 0 MV ERO: cm Regurg. Vol.: ml/beat Regurg. Frac.: % PA Pressure: 30-35 mmHg DOPPLER/COLOR FOLOW DOPPLER COMMENTS: Mid AR, Mod MR,mild TV regurgitation, Mild NV. Diastolic function: indeterminate CONTRAST: 0.8 ml Optison [...] MD By signing this report, the attending circulation librarian certifies that he or she has personally [...] 09/05/2024 2:20 PM Admit Type: Inpatient Room: [facility] Date of : 1950 Instrument Name: [id number] Gender: Male Note Status: Finalized Procedure: ERCP Indications: Bile leak Providers: Milton Mclean M.D. Referring MD: Juan Connolly M.D. Medicines: Monitored Anesthesia Care, Indomethacin 100 mg NV Complications: No immediate complications. Estimated Blood Loss: [...] patient tolerated the procedure well. Findings: A electrical systems engineer film of the abdomen was obtained. One [...] this encounter Consult Notes * Clarissa Beckham, DEVELOPMENT PLANNER - 09/05/2024 8:07 AM CDT Gastroenterology Consult [...] NP 09/05/2024 This note was transcribed using [employer] Speech Recognition software. As a result, there [...] plan of care as documented by the DEVELOPMENT PLANNER.. * Momo Epstein MD - 09/02/2024 10:21 [...] with complaints of pain. Was seen in [facility] and was diagnosed with cholecystitis. Patient was recently admitted to the hospital and discharged on 08/11/2024 status post CABG x3 on 07/24 and permanent pacemaker regular implantation on 08/04. Surgeon from [facility] did not agree to do the surgery recommended transferring patient to [place] given the recent CT surgery. Outside facility [...] 0.9% infusion 75 mL/hr 75 mL/hr (09/01/24 5059) acetaminophen albuterol HFA bisacodyl EC OR bisacodyL [...] Rate: 92 bpm RR Interval: 650 msec NV Interval: 154 msec QRS Duration: 151 msec QT Interval: 406 msec QTC Interval: 456 msec P-R-T Breeding: 37 - 267 - 106 degrees IMPRESSION: ELECTRONIC VENTRICULAR PACEMAKER ABNORMAL RHYTHM ECG Electronically Signed By: DEVICE CHECK - IN OFFICE Result Date: 08/15/2024 Narrative: Interpretation Summary: Battery and Leads (BL) Normal parameters noted on battery and lead(s) --- Estimated battery longevity 8.3 years. Presenting Rhythm (NV) Atrial Sensing-BiVentricularPacing (-BiVP) --- /BiVP 85 bpm. Underlying /VS, COMPLETE HEART BLOCK 40 bpm. Arrhythmic events (AE) No new arrhythmic events in monitoring period Transmission Information (TI) Device Summary Report Implantable Cardiac Device Result Date: 08/05/2024 Narrative: Patient Name: Abile Fink Date of : 1950 Primary Physician: @PCP@ Procedure Date: @ADMITDT@ Name of procedure: 1. Placement of a Biventricular Pacing ICD 2. Selective Coronary Sinus Venography 3. Subclavian venography History: 1) CAD -Symptoms of GARCÍA -s/p CABG BURGESS-LAD, left radial-OM, SVG-PDA) 07/24/2024 2) AV block -History of second degree AV block, CHB post op -Given CHB and LVEF 26%, presented for DYNAMICIST-D 08/04/2024. 3) ICM -LVEF 40-50% pre op, [...] recorded. Images were taken in SHELL and BRUNEIAN views to ensure appropriate lead placement. The [...] device programming: - RA Lead (#5076 S/N [id number]): Sensing 2.5 mV, Pacing threshold 0.75 V at 0.4 ms, Imp 608 Ohm - RV Lead (#6935M-62 [id number]): Sensing 6.6 mV, Pacing threshold 0.75 V at 0.4 ms Imp 456 Ohm - LV Lead (#4798-88 S/N [id number]): Sensing NA mV, Pacing threshold 1.0 V at 0.4 ms, Imp 418 Ohm - Device: DYNAMICIST-D (Cobolt HF Quad #[id number] S/N [id number]), programmed DDD 60-130 BPM - Zones: VF> [...] days post-discharge Lucy Meyer MD Clinical Cardiac Cruise Guide X-ray chest 2 views Result Date: 08/05/2024 [...] test: 08/03/2024 Type of test: Limited TTE [facility] #:0 Date of : 1950 (M) Automobile Damage Appraiser: Jojo Chapa ROSEY Referring Physician: CALEB ELIZABETH MD Contrast Agent: 0.8 ml Optison Administered, (2.2 ml wasted). Contrast Administered by: SKILLS AUDITOR Supervised/Interpreted by: Eric Roberts MD Diagnosis: chf Location: [facility] Reason for test: Evaluate LV prior to [...] 2=Hypo 3=Akinetic 4=Dyskin./Aneurysm 0=Not visualized) Parasternal Long Breeding:MAS=2 BAS=2 MIL=2 LORNE=2 Parasternal Short Breeding:MAS=2 MIS=2 MS=2 MIL=2 MAL=2 MA=2 Apical 4 Chambers:=2 MIS=2 BIS=2 BAL=2 MAL=2 AL=2 AC=2 Apical 2 Chambers:AI=2 MS=2 BI=2 BA=2 MA=2 AA=2 AC=2 LV Global [...] Valve: mild TV regurgitation Pulmonic Valve: Mild NV AV Regurgitation: Mid AR AV Stenosis: AV Area: cm2 AV Pressure Gradient (mmHg): Mean: 0, Peak:0 MV Regurgitation: Mod MR MV Stenosis: MV Area: cm2 MV Pressure Gradient (mmHg): Mean: 0 MV ERO: cm Regurg. Vol.: ml/b eat Regurg. Frac.: % PA Pressure: 30-35 mmHg DOPPLER/COLOR FOLOW DOPPLER COMMENTS: Mid AR, Mod MR, mild TV regurgitation, Mild NV. Diastolic function: indeterminate CONTRAST: 0.8 ml Optison [...] MD By signing this report, the attending circulation librarian certifies that he or she has personally [...] from the original note were not included. [facility] [place] [facility], [address], [address] [facility] [facility] [address] [facility], [place] [address] Cardiology Electrophysiology MD Matthew Salter,, MD Richard Hammer, MD Iftikhar Chiang, MD Nba Tariq, MD Jamey Chaves, MD Preston Daley, MD Regino Rivera, MD Madai Porras, HARBORMASTER Sylvester Cotton, MD Soheila Garza, HARBORMASTER Oscar Amaya, MD Natalie Dave, DEVELOPMENT PLANNER Sloan Yanez, MD Kandace Edwards, DEVELOPMENT PLANNER Sherron Alexandra, DEVELOPMENT PLANNER Isaura Reveles, DEVELOPMENT PLANNER Richard Rogers, HATTIE Cardiology Consultation Note Patient Name: Abiel Fink Date of : 1950 Primary Physician: Juan Retana MD Requesting Physician: @REQUEST@ Admission Date: 09/01/2024 Length of Stay: 1 Chief Complaint No chief complaint on file. HPI Abiel Fink is a 74 y.o. male seen in consultation for preoperative cardiac risk assessment,medication optimization in the setting of recent CABG Patient presented to [facility] and diagnosed with acute cholecystitis recently Had very recent CABG x3 about 3 weeks ago on 07/24 along with permanent pacemaker placement during that admission Recently underwent CABG x3 on 07/24/2024,BURGESS to LAD, left radial to OM, SVG to PDA at [place] alongwith Medtronic DYNAMICIST D, due to complete heart block with [...] AV block and electrophysiology recommended placementof a DYNAMICIST D. Reviewed postoperative echo persistently severe global dysfunction with an EF that was estimated ataround 26%, probably normal or near normal RV function, dilated left atrium with moderate residual mitral regurgitation, trace pericardial effusion and and mildly elevated pulmonary pressures of around 35 mmHg. Reviewed labs from [place], minimally elevated and flat troponin I assay [...] 121/75 BP Location: Left arm Patient Position: [facility] 30 degrees Pulse: 94 90 88 89 [...] cardiovascular surgery # CABG x3 July 2024 [place] - CABG x3 on 07/24/2024,BURGESS to LAD, left radial to OM, SVG to PDA at [place] - no acute signs of ACS - No chest - elevated and flat troponin - unremarkable EKG with biventricular paced rhythm - sternal wound looks clean dry and intact - Based on history was progressing as expected, and was discharged to home from subacute rehab and tolerating activity well until abdominal pain started - planning on attending cardiac rehab at [place], via the [facility] - no further cardiac workup indicated at this time unless patient develops chest pain in which casewe will repeat EKG and cardiac enzymes - aspirin and Plavix currently on hold given possible need for abdominal procedures # ischemic cardiomyopathy - EF 26% last month after surgery At [place] - Moderate functional mitral regurgitation - appears well compensated at this time with no signs of volume overload - continue carvedilol 3.125 b.i.d. and isosorbide mononitrate 15 mg daily which was the only GDMT at discharge - will not attempt aggressive GDMT titration during acute cystitis episode # Complete heart block # DYNAMICIST D - Medtronic DYNAMICIST D, due to complete heart block with [...] This note was dictated in part using [employer] voice recognition software. Despite careful review of this note, variances in spelling and vocabulary are possible and unintentional. documented in this encounter Miscellaneous Notes * Plan of Care - Cathi Reyes RN - 09/07/2024 3:05 PM CDT Goals: Clinical Goals for the Shift: Remove CINTIA drain, go home Summary: 0700: BSSR received from Jane. Robert washburn RN introduced self to pt. Call light [...] transport been arranged? Yes Details of Transportation [place] set up D/C Transport Anticipated Date 09/07/24 [...] From: Patient (09/05/241407) Admission Source: transfer from [facility], from home with son Impression: Acute Cholecystitis Plan Includes: General surgery consult, lap miladys, ERCP; patient plans to return home after DC Primary Source of Transportation: Does the patient need discharge transport arranged?: Yes (son doesn't drive- ?friend to brick picker) Has discharge transport been arranged?: No (09/05/241407) Health Insurance Coverage: [place] Prescription [place]age: [place] Pharmacy: Alverto Gutierrez [facility] Pharm[facility] - Fax or Paper Script Only - send e-rx to [facility] [address] [place] [id number] [facility] [address] [facility] [address] [facility] [address] [facility] [id number] Primary Care Provider: Juan Retana MD Prior [...] or living in a long term (including now)?: No (09/05/241410) Utilities: No, (09/05/241410) Social Connections: In a typical week, how many times do you talk on the phone with family, friends, or neighbors?: More than three times a week How often do you get together with friends or relatives?: Once a week How often do you attend scientologist or alevism services?: Never Do you belong to any clubs or organizations such as scientologist groups, unions, fraternal [...] Collaboration with Patient, Provider, Direct Care Nurse, Twister Tender Paper, and other members of theHealth Care Team to assure needed interventions completed. 2. Return patient to optimal level of self-care post discharge. 3. Critical Systems Technician will follow for Discharge Planning - interventions [...] will improve Outcome: Progressing Flowsheets (Taken 09/04/2024 180) Ability to develop a pain control plan will improve: Explain causes of pain and how long pain can be expected to last Teach information regarding pain management Problem: Medication Goal: Satisfaction with pain management medication regimen will improve Outcome: Progressing Flowsheets (Taken 09/04/2024 180) Satisfaction with pain management medication regimen will [...] with abd. PRN pain medication given for 8 pain post sx. Drowsy but awake and easily arousable. * Op Note - Ever Anton MD - 09/04/2024 1:40 PM CDT Images from the original note were not included. Operative Note SURGEON Ever Anton MD, FACS CONTROL DIRECTOR Scale Balancer: Katerine Medina RN Scrub: Keyana Chow RN ADJUNCT ENGLISH INSTRUCTOR: Park Villarreal RN PREOPERATIVE DIAGNOSIS Acute cholecystitis secondary to cholelithiasis POSTOPERATIVE DIAGNOSIS Acute gangrenous perforated cholecystitis OPERATION Laparoscopic subtotal fenestrated cholecystectomy Citation- Jayme viramontes al, Journal [employer] 222 (1): 89-96. November [...] was immediately available. There was no surgical nurse practitioner. Ever nAton MD, [facility] [employer] Department of Surgery [...] meds Summary: npo after midnight for cholelcystectomy. [place] given this am for right abd pain. [...] with complaints of pain. Was seen in [facility] and was diagnosed with cholecystitis. Patient was recently admitted to the hospital and discharged on 08/11/2024 status post CABG x3 on 07/24 and permanent pacemaker regular implantation on 08/04. Surgeon from [facility] did not agree to do the surgery recommended transferring patient to [place] given the recent CT surgery. Outside facility [...] 0.9% infusion 75 mL/hr 75 mL/hr (09/03/24 08) acetaminophen albuterol HFA bisacodyl EC OR bisacodyL [...] Lab Units 09/03/24 0633 09/02/24 0611 09/01/24 211 GLUCOSE mg/dL 92 100 110 Lab Results Component Value Date INR 1.44 (H) 07/24/2024 ECG 12 lead Result Date: 09/02/2024 Narrative: Vent Rate: 92 bpm RR Interval: 650 msec NV Interval: 154 msec QRS Duration: 151 msec QT Interval: 406 msec QTC Interval: 456 msec P-R-T Breeding: 37 - 267 - 106 degrees IMPRESSION: ELECTRONIC VENTRICULAR PACEMAKER ABNORMAL RHYTHM ECG Electronically Signed By: DEVICE CHECK - IN OFFICE Result Date: 08/15/2024 Narrative: Interpretation Summary: Battery and Leads (BL) Normal parameters noted on battery and lead(s) --- Estimated battery longevity 8.3 years. Presenting Rhythm (NV) Atrial Sensing-BiVentricularPacing (-BiVP) --- /BiVP 85 bpm. [...] -Given CHB and LVEF 26%, presented for DYNAMICIST-D 08/04/2024. 3) ICM -LVEF 40-50% pre op, [...] recorded. Images were taken in SHELL and BRUNEIAN views to ensure appropriate lead placement. The [...] device programming: - RA Lead (#5076 S/N [id number]): Sensing 2.5 mV, Pacing threshold 0.75 V at 0.4 ms, Imp 608 Ohm - RV Lead (#[id number]): Sensing 6.6 mV, Pacing threshold 0.75 V at 0.4 ms Imp 456 Ohm - LV Lead (#[id number] S/N [id number]): Sensing NA mV, Pacing threshold 1.0 V at 0.4 ms, Imp 418 Ohm - Device: DYNAMICIST-D (Cobolt HF Quad #[id number] S/N [id number]), programmed DDD 60-130 BPM - Zones: VF> [...] days post-discharge Lucy Meyer MD Clinical Cardiac Cruise Guide X-ray chest 2 views Result Date: 08/05/2024 [...] Hospital #:[id number] Date of : 1950 (M) Automobile Damage Appraiser: Jojo Chapa RDCS Referring Physician: CALEB ELIZABETH MD Contrast Agent: 0.8 ml Optison Administered, (2.2 ml wasted). Contrast Administered by: SKILLS AUDITOR Supervised/Interpreted by: Eric Roberts MD Diagnosis: chf Location: [facility] Reason for test: Evaluate LV prior to [...] 2=Hypo 3=Akinetic 4=Dyskin./Aneurysm 0=Not visualized) Parasternal Long Breeding:MAS=2 BAS=2 MIL=2 LORNE=2 Parasternal Short Breeding:MAS=2 MIS=2 MS=2 MIL=2 MAL=2 MA=2 Apical 4 Chambers:=2 MIS=2 BIS=2 BAL=2 MAL=2 AL=2 AC=2 Apical 2 Chambers:AI=2 MS=2 BI=2 BA=2 MA=2 AA=2 AC=2 LV Global [...] Valve: mild TV regurgitation Pulmonic Valve: Mild NV AV Regurgitation: Mid AR AV Stenosis: AV Area: cm2 AV Pressure Gradient (mmHg): Mean: 0, Peak:0 MV Regurgitation: Mod MR MV Stenosis: MV Area: cm2 MV Pressure Gradient (mmHg): Mean: 0 MV ERO: cm Regurg. Vol.: ml/beat Regurg. Frac.: % PA Pressure: 30-35 mmHg DOPPLER/COLOR FOLOW DOPPLER COMMENTS: Mid AR, Mod MR,mild TV regurgitation, Mild NV. Diastolic function: indeterminate CONTRAST: 0.8 ml Optison [...] MD By signing this report, the attending circulation librarian certifies that he or she has personally [...] 2) (HCC) Biventricular cardiac pacemaker in situ Long discussion [...] Mclean MD LAB BLOOD ORDERABLES Final Result [facility] [address] Department [place] [address] * Differential, auto (09/07/2024 6:20 AM CDT) Neutrophil abs 5.4 1.5 - 6.5 K/cumm Imm gran abs 0.1 0.0 - 0.1 K/cumm [facility] Lymphocyte abs 0.9 0.8 - 3.3 K/cumm [facility] Monocyte abs 0.4 0.2 - 0.8 K/cumm [facility] Eosinophil abs 0.0 0.0 - 0.5 K/cumm [facility] Basophil abs 0.0 0.0 - 0.1 K/cumm [facility] Neutrophil pct 78.4 % [facility] Comment: Interpretive Data Percent cell count reference ranges are not reported, since discordance with absolute values may lead to misinterpretation of CBC data. Current Interpretive Data was last revised on 2018. Imm gran pct 2.0 % [facility] Comment: Interpretive Data Percent cell count reference ranges are not reported, since discordance with absolute values may lead to misinterpretation of CBC data. Current Interpretive Data was last revised on 2018. Lymphocyte pct 12.8 % [facility] Comment: Interpretive Data Percent cell count reference ranges are not reported, since discordance with absolute values may lead to misinterpretation of CBC data. Current Interpretive Data was last revised on 2018. Monocyte pct 6.1 % [facility] Comment: Interpretive Data Percent cell count reference ranges are not reported, since discordance with absolute values may lead to misinterpretation of CBC data. Current Interpretive Data was last revised on 2018. Eosinophil pct 0.6 % [facility] Comment: Interpretive Data Percent cell count reference ranges are not reported, since discordance with absolute values may lead to misinterpretation of CBC data. Current Interpretive Data was last revised on 2018. Basophil pct 0.1 % [facility] Comment: Interpretive Data Percent cell count reference ranges are not reported, since discordance with absolute values may lead to misinterpretation of CBC data. Current Interpretive Data was last revised on 2018. Blood 09/07/2024 6:20 AM CDT 09/07/2024 6:38 AM CDT Milton Mclean MD LAB BLOOD ORDERABLES Final Result Performing Organization Address [facility] Co de Phone Number [facility] [address] [facility] [place], [place] [phone] * Phosphorus (09/07/2024 6:20 AM CDT) Pathologist [facility] Phosphorus, pl 3.2 2.3 - 4.5 mg/dL Blood 09/07/2024 6:20 AM CDT 09/07/2024 6:24 AM CDT Milton Mclean MD LAB BLOOD ORDERABLES Final Result Performing Organization Address [facility] de Phone Number [facility] [address] [facility] [place], [place] [phone] * Bilirubin, direct (09/07/2024 6:20 AM CDT) Pathologist [facility] Bilirubin, direct 0.2 0.1 - 0.3 mg/dL Blood 09/07/2024 6:20 AM CDT 09/07/2024 6:24 AM CDT Result [facility] Milton Mclean MD LAB BLOOD ORDERABLES Final Result Performing Organization Address [facility] Co de Phone Number [facility] [address] [facility] [place], [place] [phone] * (ABNORMAL) Comprehensive metabolic panel (09/07/2024 6:20 AM CDT) Pathologist [facility] Sodium 135 135 - 145 mmol/L Potassium, pl 4.1 3.3 - 4.9 mmol/L [facility] Chloride 104 97 - 110 mmol/L [facility] CO2 19(L) 22 - 32 mmol/L [facility] Anion gap 12 2 - 15 mmol/L [facility] BUN 24 6 - 25 mg/dL [facility] Creatinine 1.11 0.80 - 1.30 mg/dL [facility] Glucose 111 70 - 199 mg/dL [facility] Comment: Interpretive Data Fasting glucose >/= [...] 2022. Calcium 7.6(L) 8.5 - 10.3 mg/dL [facility] Bilirubin, total 0.3 0.1 - 1.2 mg/dL [facility] Protein, pl 6.0(L) 6.5 - 8.5 g/dL [facility] Albumin 2.4(L) 3.5 - 5.0 g/dL [facility] Alk phos 156(H) 40 - 130 Units/L [facility] ALT 20 7 - 55 Units/L [facility] AST 38 10 - 50 Units/L [facility] Blood 09/07/2024 6:20 AM CDT 09/07/2024 6:24 AM CDT us Milton Mclean MD LAB BLOOD ORDERABLES Final Result [facility] [address] Department [place] [address] * (ABNORMAL) CBC with auto differential (09/07/2024 6:20 AM CDT) WBC 6.9 3.8 - 9.9 K/cumm Hgb 8.6(L) 13.0 - 17.5 g/dL [facility] Hct 29.5(L) 38.9 - 50.3 % [facility] Plt 173 150 - 400 K/cumm [facility] MPV 9.2 9.1 - 12.3 fL [facility] RBC 3.62(L) 4.30 - 5.80 M/cumm [facility] MCV 81.5 81.3 - 96.4 fL [facility] MCH 23.8(L) 27.1 - 33.3 pg [facility] MCHC 29.2(L) 32.3 - 35.7 g/dL [facility] RDW CV 17.2(H) 11.1 - 14.9 % [facility] RDW SD 50.4(H) 35.7 - 48.1 fL [facility] NRBC abs 0.02(H) 0.00 - 0.01 K/cumm [facility] Blood 09/07/2024 6:20 AM CDT 09/07/2024 6:38 AM CDT Milton Mclean MD LAB BLOOD ORDERABLES Final Result [facility] [address] Department [place] [address] * eGFR (09/06/2024 12:32 PM CDT) eGFR [...] ORDERABLES Final Res ult Performing Organization Address City/[facility] Co de Phone Number [facility] [address] Department [place], [place] [phone] * Phosphorus (09/06/2024 12:32 PM CDT) Phosphorus, pl 3.1 2.3 - 4.5 mg/dL Blood 09/06/2024 12:3 2 PM CDT 09/06/2024 12:43 PM CDT us Ever Anton MD LAB BLOOD ORDERABLES Final Res ult Performing Organization Address [facility] Co de Phone Number [facility] [address] Department [place], [place] [phone] * Bilirubin, direct (09/06/2024 12:32 PM CDT) Bilirubin, direct 0.2 0.1 - 0.3 mg/dL Blood 09/06/2024 12:3 2 PM CDT 09/06/2024 12:43 PM CDT us Ever Anton MD LAB BLOOD ORDERABLES Final Res ult Performing Organization Address City/[facility] Co de Phone Number [facility] [address] Department [place] [address] * (ABNORMAL) Comprehensive metabolic panel (09/06/2024 12:32 PM CDT) Sodium 145 135 - 145 mmol/L Potassium, pl 3.6 3.3 - 4.9 mmol/L [facility] Chloride 107 97 - 110 mmol/L [facility] CO2 18(L) 22 - 32 mmol/L [facility] Anion gap 20(H) 2 - 15 mmol/L [facility] BUN 20 6 - 25 mg/dL [facility] Creatinine 1.09 0.80 - 1.30 mg/dL [facility] Glucose 123 70 - 199 mg/dL [facility] Comment: Interpretive Data Fasting glucose >/= [...] 2022. Calcium 7.4(L) 8.5 - 10.3 mg/dL [facility] Bilirubin, total 0.3 0.1 - 1.2 mg/dL [facility] Protein, pl 6.2(L) 6.5 - 8.5 g/dL [facility] Albumin 2.7(L) 3.5 - 5.0 g/dL [facility] Alk phos 145(H) 40 - 130 Units/L [facility] ALT 21 7 - 55 Units/L [facility] AST 35 10 - 50 Units/L [facility] Blood 09/06/2024 12:3 2 PM CDT 09/06/2024 12:43 PM CDT us Ever Anton MD LAB BLOOD ORDERABLES Final Res ult [facility] [address] Department [place] [address] * (ABNORMAL) Differential, auto (09/06/2024 12:32 PM CDT) Neutrophil abs 4.9 1.5 - 6.5 K/cumm Imm gran abs 0.1 0.0 - 0.1 K/cumm [facility] Lymphocyte abs 0.6(L) 0.8 - 3.3 K/cumm [facility] Monocyte abs 0.4 0.2 - 0.8 K/cumm [facility] Eosinophil abs 0.0 0.0 - 0.5 K/cumm [facility] Basophil abs 0.0 0.0 - 0.1 K/cumm [facility] Neutrophil pct 81.5 % [facility] Comment: Interpretive Data Percent cell count reference ranges are not reported, since discordance with absolute values may lead to misinterpretation of CBC data. Current Interpretive Data was last revised on 2018. Imm gran pct 2.2 % [facility] Comment: Interpretive Data Percent cell count reference ranges are not reported, since discordance with absolute values may lead to misinterpretation of CBC data. Current Interpretive Data was last revised on 2018. Lymphocyte pct 9.9 % [facility] Comment: Interpretive Data Percent cell count reference ranges are not reported, since discordance with absolute values may lead to misinterpretation of CBC data. Current Interpretive Data was last revised on 2018. Monocyte pct 6.2 % [facility] Comment: Interpretive Data Percent cell count reference ranges are not reported, since discordance with absolute values may lead to misinterpretation of CBC data. Current Interpretive Data was last revised on 2018. Eosinophil pct 0.0 % [facility] Comment: Interpretive Data Percent cell count reference ranges are not reported, since discordance with absolute values may lead to misinterpretation of CBC data. Current Interpretive Data was last revised on 2018. Basophil pct 0.2 % [facility] Comment: Interpretive Data Percent cell count reference ranges are not reported, since discordance with absolute values may lead to misinterpretation of CBC data. Current Interpretive Data was last revised on 2018. Blood 09/06/2024 12:3 2 PM CDT 09/06/2024 12:43 PM CDT Ever Anton MD LAB BLOOD ORDERABLES Final Res ult Performing Organization Address [facility]/ZIP Co de Phone Number [facility] [address] Department of [place], [place] [phone] * (ABNORMAL) CBC with auto differential (09/06/2024 12:32 PM CDT) [facility] WBC 6.0 3.8 - 9.9 K/cumm Hgb 7.7(L) 13.0 - 17.5 g/dL [facility] Hct 25.7(L) 38.9 - 50.3 % [facility] Plt 156 150 - 400 K/cumm [facility] MPV 8.6(L) 9.1 - 12.3 fL [facility] RBC 3.17(L) 4.30 - 5.80 M/cumm [facility] MCV 81.1(L) 81.3 - 96.4 fL [facility] MCH 24.3(L) 27.1 - 33.3 pg [facility] MCHC 30.0(L) 32.3 - 35.7 g/dL [facility] RDW CV 17.1(H) 11.1 - 14.9 % [facility] RDW SD 50.9(H) 35.7 - 48.1 fL [facility] NRBC abs 0.02(H) 0.00 - 0.01 K/cumm [facility] Blood 09/06/2024 12:3 2 PM CDT 09/06/2024 12:43 PM CDT Milton Mclean MD LAB BLOOD ORDERABLES Final Result [facility] [address] Department of [place], [place] [phone] * POCT glucose (09/06/2024 6:33 AM CDT) Glucose, POC 141 70 - 199 mg/dL Comment: For Glucose values <35 mg/dl when Hematocrit is >60 mg/dl,the test may not accurately detect significant hypoglycemia,and testing in the Laboratory should be considered if clinically indicated. Blood 09/06/2024 6:33 AM CDT 09/06/2024 6:33 AM CDT us Giovanny Garcia MD LAB POCT ORDERABLES - DEVICE Fin al Result [facility] [address] Department [place] [address] * FL ERCP Biliary and Pancreatic (09/05/2024 2:57 PM CDT) Narrative [facility] - 09/05/2024 3:06 PM CDT The images from this study are not interpreted by Radiology. ??Please refer to the physician's procedure / OR operative note. us Milton Mclean MD IMG FLUOROSCOPY PROCEDURES Final Result Performing Organization Address [facility]/ZIP Co de Phone Number [facility] * ERCP (09/05/2024 2:20 PM CDT) Anatomical Region Laterality Modality Other Narrative Procedure Note Milton Mclean MD - 09/05/2024 2:20 PM CDT ENDOSCOPY LAB Patient Name: Abiel Fink Procedure Date: 09/05/2024 2:20 PM Admit Type: Inpatient Room: [facility] Date of : 1950 Instrument Name: [id number] Gender: Male Note Status: Finalized Procedure: ERCP Indications: Bile leak Providers: Milton Mclean M.D. Referring MD: Juan Connolly M.D. Medicines: Monitored Anesthesia Care, Indomethacin 100 mg NV Complications: No immediate complications. Estimated Blood Loss: [...] The patient tolerated the procedurewell. Findings: A electrical systems engineer film of the abdomen was obtained. One [...] PM CDT 09/05/2024 1:02 PM CDT Result [facility] Giovanny Garcia MD LAB POCT ORDERABLES - DEVICE Fin al Result Performing Organization Address [facility] Co de Phone Number [facility] [address] [place] [address] * POCT glucose (09/05/2024 8:41 AM CDT) [facility] Glucose, POC 142 70 - 199 mg/dL Comment: For Glucose values <35 mg/dl when Hematocrit is >60 mg/dl,the test may not accurately detect significant hypoglycemia,and testing in the Laboratory should be considered if clinically indicated. Blood 09/05/2024 8:41 AM CDT 09/05/2024 8:41 AM CDT Giovanny Garcia MD LAB POCT ORDERABLES - DEVICE Fin al Result Performing Organization Address City/[facility] Co de Phone Number [facility] [address] Department of [place], [place] [phone] * (ABNORMAL) Differential, auto (09/05/2024 6:40 AM CDT) [facility] Neutrophil abs 6.0 1.5 - 6.5 K/cumm Imm gran abs 0.1 0.0 - 0.1 K/cumm [facility] Lymphocyte abs 0.5(L) 0.8 - 3.3 K/cumm [facility] Monocyte abs 0.3 0.2 - 0.8 K/cumm [facility] Eosinophil abs 0.0 0.0 - 0.5 K/cumm [facility] Basophil abs 0.0 0.0 - 0.1 K/cumm [facility] Neutrophil pct 85.1 % [facility] Comment: Interpretive Data Percent cell count reference ranges are not reported, since discordance with absolute values may lead to misinterpretation of CBC data. Current Interpretive Data was last revised on 2018. Imm gran pct 2.0 % [facility] Comment: Interpretive Data Percent cell count reference ranges are not reported, since discordance with absolute values may lead to misinterpretation of CBC data. Current Interpretive Data was last revised on 2018. Lymphocyte pct 7.6 % [facility] Comment: Interpretive Data Percent cell count reference ranges are not reported, since discordance with absolute values may lead to misinterpretation of CBC data. Current Interpretive Data was last revised on 2018. Monocyte pct 4.8 % [facility] Comment: Interpretive Data Percent cell count reference ranges are not reported, since discordance with absolute values may lead to misinterpretation of CBC data. Current Interpretive Data was last revised on 2018. Eosinophil pct 0.1 % [facility] Comment: Interpretive Data Percent cell count reference ranges are not reported, since discordance with absolute values may lead to misinterpretation of CBC data. Current Interpretive Data was last revised on 2018. Basophil pct 0.4 % [facility] Comment: Interpretive Data Percent cell count reference ranges are not reported, since discordance with absolute values may lead to misinterpretation of CBC data. Current Interpretive Data was last revised on 2018. Blood 09/05/2024 6:40 AM CDT 09/05/2024 6:40 AM CDT us Deanna Bangura MD LAB BLOOD ORDERABLES Final Res ult [facility] [address] Department [place] [address] * (ABNORMAL) CBC with auto differential (09/05/2024 6:40 AM CDT) [facility] WBC 7.1 3.8 - 9.9 K/cumm Hgb 10.0(L) 13.0 - 17.5 g/dL [facility] Hct 34.3(L) 38.9 - 50.3 % [facility] Plt 185 150 - 400 K/cumm [facility] MPV 9.4 9.1 - 12.3 fL [facility] RBC 4.24(L) 4.30 - 5.80 M/cumm [facility] MCV 80.9(L) 81.3 - 96.4 fL [facility] MCH 23.6(L) 27.1 - 33.3 pg [facility] MCHC 29.2(L) 32.3 - 35.7 g/dL [facility] RDW CV 16.9(H) 11.1 - 14.9 % [facility] RDW SD 49.4(H) 35.7 - 48.1 fL [facility] NRBC abs 0.00 0.00 - 0.01 K/cumm [facility] Blood 09/05/2024 6:40 AM CDT 09/05/2024 6:46 AM CDT us Deanna Banguar MD LAB BLOOD ORDERABLES Final Res ult [facility] [address] Department [place] [address] * eGFR (09/05/2024 5:27 AM CDT) [facility] eGFR >90 >=60 mL/min/1. 73 m2 [...] ORDERABLES Final Re sult Performing Organization Address City/[facility] Co de Phone Number [facility] [address] Department of [place], [place] [phone] * Phosphorus (09/05/2024 5:27 AM CDT) Phosphorus, pl 4.4 2.3 - 4.5 mg/dL Blood 09/05/2024 5:27 AM CDT 09/05/2024 5:41 AM CDT Jose Enriquez MD LAB BLOOD ORDERABLES Final Re sult Performing Organization Address [facility] Co de Phone Number [facility] [address] Department of [place], [place] [phone] * Bilirubin, direct (09/05/2024 5:27 AM CDT) Bilirubin, direct 0.3 0.1 - 0.3 mg/dL Blood 09/05/2024 5:27 AM CDT 09/05/2024 5:41 AM CDT us Jose Enriquez MD LAB BLOOD ORDERABLES Final Re sult [facility] [address] Department [place] [address] * (ABNORMAL) Comprehensive metabolic panel (09/05/2024 5:27 AM CDT) Sodium 139 135 - 145 mmol/L Potassium, pl 4.3 3.3 - 4.9 mmol/L [facility] Chloride 105 97 - 110 mmol/L [facility] CO2 22 22 - 32 mmol/L [facility] Anion gap 12 2 - 15 mmol/L [facility] BUN 12 6 - 25 mg/dL [facility] Creatinine 0.83 0.80 - 1.30 mg/dL [facility] Glucose 139 70 - 199 mg/dL [facility] Comment: Interpretive Data Fasting glucose >/= [...] 2022. Calcium 8.3(L) 8.5 - 10.3 mg/dL [facility] Bilirubin, total 0.5 0.1 - 1.2 mg/dL [facility] Protein, pl 6.8 6.5 - 8.5 g/dL [facility] Albumin 3.1(L) 3.5 - 5.0 g/dL [facility] Alk phos 175(H) 40 - 130 Units/L [facility] ALT 24 7 - 55 Units/L [facility] AST 42 10 - 50 Units/L [facility] Blood 09/05/2024 5:27 AM CDT 09/05/2024 5:41 AM CDT Jose Enriquez MD LAB BLOOD ORDERABLES Final Re sult Performing Organization Address [facility] Co de Phone Number [facility] [address] [facility] [place] [address] * POCT glucose (09/05/2024 4:29 AM CDT) [...] DEVICE F inal Result Performing Organization Address [facility] Co de Phone Number [facility] [address] [facility] [place], [place] [phone] * POCT glucose (09/04/2024 11:46 PM CDT) [...] DEVICE F inal Result Performing Organization Address [facility] Co de Phone Number [facility] [address] [facility] [place], [place] [id number] * POCT glucose (09/04/2024 8:12 PM CDT) [...] DEVICE F inal Result Performing Organization Address [facility] Co de Phone Number [facility] [address] [facility] [place] [address] * POCT glucose (09/04/2024 3:33 PM CDT) Pathologist [facility] Glucose, POC 139 70 - 199 mg/dL Comment: For Glucose values <35 mg/dl when Hematocrit is >60 mg/dl,the test may not accurately detect significant hypoglycemia,and testing in the Laboratory should be considered if clinically indicated. Blood 09/04/2024 3:33 PM CDT 09/04/2024 3:33 PM CDT Result [facility] Deanna Bangura MD LAB POCT ORDERABLES - DEVICE F inal Result Performing Organization Address [facility] de Phone Number [facility] [address] [place] [address] * Aerobic and anaerobic culture and gram stain Bile Abdominal (09/04/2024 2:50 PM CDT) [facility] Direct Specimen Exam Stain: No organisms seen. No polymorphonuclear leukocytes seen. Report Final Report: No growth [facility] Bile (Abdominal) 09/04/2024 2:50 PM CDT 09/04/2024 3:18 PM CDT Narrative [facility] - 09/07/2024 2:00 PM CDT Bile Ever Anton MD LAB MICROBIOLOGY - GENERAL ORD ERABLES Final Result Performing Organization Address [facility] Co de Phone Number [facility] [address] Department [place] [address] * Transfuse RBC (09/04/2024 2:32 PM CDT) Blood us Gorge Jones MD BLOOD TRANSFUSION ORDERABLE S Edited Result - Final [facility] [address] Department [place] [address] * Surgical pathology (09/04/2024 2:06 PM CDT) Tissue (Gallbladder) 09/04/2024 2:06 PM CDT Comment:Placed in Formalin a t end of Procedure. Narrative [facility] - 09/07/2024 4:40 PM CDT [address] ??[address] Tele: ?? Radha Milner MD - Community Health Promoter Note to Patients: This report may contain [...] PATHOLOGY REPORT Patient Name: ??ABIEL FINK Address: ??[address] [place] [address] ??64 Gender: ??M : ??1950 (Age: 74) Service: ??Surgery Location: ??[id number], ?? Hospital #: ??[id number] Patient Type: [facility] Accession #: ? [id number] Taken: ? 09/04/2024 Received ? 09/04/2024 Reported: ? 09/07/2024 Physician(s): ? Ever AntonBarron knapp M.D. DIAGNOSIS: Gallbladder, laparoscopic cholecystectomy: ? - [...] gallbladder. ??No mass lesion is grossly identified. Interactive Multimedia Designer sections are submitted as follows: ??A1 - [...] malignancy is evident. Clerical Data Follows A; [id number], [id number] REPORT IMAGES AND/OR SCANNED DOCUMENTS ONLY VIEWABLE IN PDF FORMAT The immunohistochemical test(s) cited in this report, if any, was developed and its performance characteristics determined by [facility] Pathology Department. ??It has not been cleared or approved by the U.S. Food and Drug Administration. ??The FDA has determined that such clearance or approval is not necessary. ??This test is used for clinical purposes. ??It should not be regarded as investigational or for research. ??[facility] Laboratory is certified under the Clinical Laboratory [...] part or completely in the following laboratories: [facility], [address] [facility], [address], [address] [place] [address]. Ever Anton MD LAB PATHOLOGY ORDERABLES Final Result Performing Organization Address City/[facility]/ZIP Co de Phone Number PATHOLOGY [facility] Laboratory Receiving [address] [place] [address] * POCT glucose (09/04/2024 12:37 PM CDT) [facility] Glucose, POC 107 70 - 199 mg/dL Comment: For Glucose values <35 mg/dl when Hematocrit is >60 mg/dl,the test may not accurately detect significant hypoglycemia,and testing in the Laboratory should be considered if clinically indicated. Blood 09/04/2024 12:3 7 PM CDT 09/04/2024 12:37 PM CDT Deanna Bangura MD LAB POCT ORDERABLES - DEVICE F inal Result Performing Organization Address City/[facility]/ZIP Co de Phone Number [facility] [address] Department [place] [address] * Prepare RBC: 1 Units (09/04/2024 12:34 PM CDT) [facility] Product code [id number] Unit Number [id number] [facility] Product Blood Type OPOS [facility] Dispense Status PRESUMED TRANSFUSED [facility] Blood 09/04/2024 12:3 4 PM CDT Narrative [facility] - 09/05/2024 10:15 AM CDT Specify Procedure:->Hold for procedure Are special requirements needed? (All products are leukoreduced and CMV- safe)- >No Date required:-[id number] LRRBC # of [id number] Reasons:-Pre-op Hgb <8 g/dL} Ever Anton MD BLOOD BANK PRODUCT ORDERABLES Final Result Performing Organization Address [facility]/ZIP Co de Phone Number [facility] [address] Department [place] [address] * POCT glucose (09/04/2024 7:52 AM CDT) [...] DEVICE F inal Result Performing Organization Address [facility]/ZIP Co de Phone Number [facility] [address] Department [place] [address] * eGFR (09/04/2024 5:29 AM CDT) eGFR [...] MD LAB BLOOD ORDERABLES Final Re sult [facility] [address] Department [place] [address] * Differential, auto (09/04/2024 5:29 AM CDT) Neutrophil abs 3.0 1.5 - 6.5 K/cumm Imm gran abs 0.1 0.0 - 0.1 K/cumm [facility] Lymphocyte abs 1.0 0.8 - 3.3 K/cumm [facility] Monocyte abs 0.6 0.2 - 0.8 K/cumm [facility] Eosinophil abs 0.2 0.0 - 0.5 K/cumm [facility] Basophil abs 0.1 0.0 - 0.1 K/cumm [facility] Neutrophil pct 61.1 % [facility] Comment: Interpretive Data Percent cell count reference ranges are not reported, since discordance with absolute values may lead to misinterpretation of CBC data. Current Interpretive Data was last revised on 2018. Imm gran pct 1.2 % [facility] Comment: Interpretive Data Percent cell count reference ranges are not reported, since discordance with absolute values may lead to misinterpretation of CBC data. Current Interpretive Data was last revised on 2018. Lymphocyte pct 20.5 % [facility] Comment: Interpretive Data Percent cell count reference ranges are not reported, since discordance with absolute values may lead to misinterpretation of CBC data. Current Interpretive Data was last revised on 2018. Monocyte pct 11.3 % [facility] Comment: Interpretive Data Percent cell count reference ranges are not reported, since discordance with absolute values may lead to misinterpretation of CBC data. Current Interpretive Data was last revised on 2018. Eosinophil pct 4.7 % [facility] Comment: Interpretive Data Percent cell count reference ranges are not reported, since discordance with absolute values may lead to misinterpretation of CBC data. Current Interpretive Data was last revised on 2018. Basophil pct 1.2 % [facility] Comment: Interpretive Data Percent cell count reference ranges are not reported, since discordance with absolute values may lead to misinterpretation of CBC data. Current Interpretive Data was last revised on 2018. Blood 09/04/2024 5:29 AM CDT 09/04/2024 5:39 AM CDT us Jose Enriquez MD LAB BLOOD ORDERABLES Final Re sult Performing Organization Address City/[facility]/ZIP Co de Phone Number [facility] [address] Department [place] [address] * Phosphorus (09/04/2024 5:29 AM CDT) Phosphorus, pl 3.3 2.3 - 4.5 mg/dL Blood 09/04/2024 5:29 AM CDT 09/04/2024 5:39 AM CDT us Jose Erniquez MD LAB BLOOD ORDERABLES Final Re sult [facility] [address] Department [place] [address] * Bilirubin, direct (09/04/2024 5:29 AM CDT) Bilirubin, direct 0.2 0.1 - 0.3 mg/dL Blood 09/04/2024 5:29 AM CDT 09/04/2024 5:39 AM CDT Jose Enriquez MD LAB BLOOD ORDERABLES Final Re sult [facility] [address] Department [place] [address] * (ABNORMAL) Comprehensive metabolic panel (09/04/2024 5:29 AM CDT) Pathologist [facility] Sodium 139 135 - 145 mmol/L Potassium, pl 3.3 3.3 - 4.9 mmol/L [facility] Chloride 106 97 - 110 mmol/L [facility] CO2 22 22 - 32 mmol/L [facility] Anion gap 11 2 - 15 mmol/L [facility] BUN 11 6 - 25 mg/dL [facility] Creatinine 0.81 0.80 - 1.30 mg/dL [facility] Glucose 115 70 - 199 mg/dL [facility] Comment: Interpretive Data Fasting glucose >/= [...] 2022. Calcium 8.0(L) 8.5 - 10.3 mg/dL [facility] Bilirubin, total 0.4 0.1 - 1.2 mg/dL [facility] Protein, pl 6.1(L) 6.5 - 8.5 g/dL [facility] Albumin 2.8(L) 3.5 - 5.0 g/dL [facility] Alk phos 176(H) 40 - 130 Units/L [facility] ALT 23 7 - 55 Units/L [facility] AST 45 10 - 50 Units/L [facility] Blood 09/04/2024 5:29 AM CDT 09/04/2024 5:39 AM CDT Jose Enriquez MD LAB BLOOD ORDERABLES Final Re sult [facility] [address] Department [facility] [place] [address] * Type and screen (09/04/2024 5:29 AM CDT) ABO Rh O Positive Janell, indirect Negative [facility] Blood 09/04/2024 5:29 AM CDT 09/04/2024 5:39 AM CDT Narrative [facility] - 09/04/2024 6:16 AM CDT Has the patient had Daratumumab or Isatuximab in the past 6 months?->Unknown Wiley Hernandez MD LAB BLOOD BANK TEST ORDERABLES Final Result [facility] [address] Department [place] [address] * (ABNORMAL) CBC with auto differential (09/04/2024 5:29 AM CDT) WBC 4.9 3.8 - 9.9 K/cumm Hgb 7.6(L) 13.0 - 17.5 g/dL [facility] Hct 26.2(L) 38.9 - 50.3 % [facility] Plt 192 150 - 400 K/cumm [facility] MPV 9.3 9.1 - 12.3 fL [facility] RBC 3.29(L) 4.30 - 5.80 M/cumm [facility] MCV 79.6(L) 81.3 - 96.4 fL [facility] MCH 23.1(L) 27.1 - 33.3 pg [facility] MCHC 29.0(L) 32.3 - 35.7 g/dL [facility] RDW CV 16.7(H) 11.1 - 14.9 % [facility] RDW SD 47.9 35.7 - 48.1 fL [facility] NRBC abs 0.00 0.00 - 0.01 K/cumm [facility] Blood 09/04/2024 5:29 AM CDT 09/04/2024 5:39 AM CDT Result [facility] Milton Mclean MD LAB BLOOD ORDERABLES Final Result Performing Organization Address [facility] Co de Phone Number [facility] [address] [place] [address] * POCT glucose (09/04/2024 4:37 AM CDT) [...] DEVICE F inal Result Performing Organization Address City/[facility]/ZIP Co de Phone Number [facility] [address] [facility] [place] [address] * POCT glucose (09/04/2024 12:01 AM CDT) [...] DEVICE F inal Result Performing Organization Address [facility] Co de Phone Number [facility] [address] Department of [employer] [place], [place] [address] * Check Sample (09/03/2024 6:33 AM CDT) ABO Rh O Positive MBC HCLL OTHER 09/03/2024 6:33 AM CDT 09/03/2024 8:44 PM CDT Deanna Bangura MD LAB BLOOD ORDERABLES Final Res ult Performing Organization Address [facility] Co de Phone Number [facility] [address] [place] [address] MBC * eGFR (09/03/2024 6:33 AM CDT) [...] ORDERABLES Final Re sult Performing Organization Address City/[facility] Co de Phone Number [facility] [address] [facility] [place] [address] * Phosphorus (09/03/2024 6:33 AM CDT) [facility] Phosphorus, pl 2.8 2.3 - 4.5 mg/dL Blood 09/03/2024 6:33 AM CDT 09/03/2024 7:32 AM CDT Kyrie Tucker MD LAB BLOOD ORDERABLES Final Re sult Performing Organization Address [facility] Co de Phone Number [facility] [address] Department of [employer] [place], [place] [id number] * Bilirubin, direct (09/03/2024 6:33 AM CDT) [facility] Bilirubin, direct 0.3 0.1 - 0.3 mg/dL Blood 09/03/2024 6:33 AM CDT 09/03/2024 7:32 AM CDT Kyrie Tucker MD LAB BLOOD ORDERABLES Final Re sult Performing Organization Address City/[facility] Co de Phone Number [facility] [address] Department of Laboratories [place], [place] [id number] * Differential, auto (09/03/2024 6:33 AM CDT) Neutrophil abs 3.3 1.5 - 6.5 K/cumm Imm gran abs 0.1 0.0 - 0.1 K/cumm [facility] Lymphocyte abs 1.0 0.8 - 3.3 K/cumm [facility] Monocyte abs 0.6 0.2 - 0.8 K/cumm [facility] Eosinophil abs 0.3 0.0 - 0.5 K/cumm [facility] Basophil abs 0.1 0.0 - 0.1 K/cumm [facility] Neutrophil pct 63.1 % [facility] Comment: Interpretive Data Percent cell count reference ranges are not reported, since discordance with absolute values may lead to misinterpretation of CBC data. Current Interpretive Data was last revised on 2018. Imm gran pct 1.0 % [facility] Comment: Interpretive Data Percent cell count reference ranges are not reported, since discordance with absolute values may lead to misinterpretation of CBC data. Current Interpretive Data was last revised on 2018. Lymphocyte pct 18.3 % [facility] Comment: Interpretive Data Percent cell count reference ranges are not reported, since discordance with absolute values may lead to misinterpretation of CBC data. Current Interpretive Data was last revised on 2018. Monocyte pct 11.6 % [facility] Comment: Interpretive Data Percent cell count reference ranges are not reported, since discordance with absolute values may lead to misinterpretation of CBC data. Current Interpretive Data was last revised on 2018. Eosinophil pct 4.8 % [facility] Comment: Interpretive Data Percent cell count reference ranges are not reported, since discordance with absolute values may lead to misinterpretation of CBC data. Current Interpretive Data was last revised on 2018. Basophil pct 1.2 % [facility] Comment: Interpretive Data Percent cell count reference ranges are not reported, since discordance with absolute values may lead to misinterpretation of CBC data. Current Interpretive Data was last revised on 2018. Blood 09/03/2024 6:33 AM CDT 09/03/2024 7:32 AM CDT Jose Enriquez MD LAB BLOOD ORDERABLES Final Re sult Performing Organization Address [facility]/ZIP Co de Phone Number [facility] [address] [place] [address] * (ABNORMAL) CBC with auto differential (09/03/2024 6:33 AM CDT) [facility] WBC 5.2 3.8 - 9.9 K/cumm Hgb 8.2(L) 13.0 - 17.5 g/dL [facility] Hct 28.6(L) 38.9 - 50.3 % [facility] Plt 173 150 - 400 K/cumm [facility] MPV 9.6 9.1 - 12.3 fL [facility] RBC 3.51(L) 4.30 - 5.80 M/cumm [facility] MCV 81.5 81.3 - 96.4 fL [facility] MCH 23.4(L) 27.1 - 33.3 pg [facility] MCHC 28.7(L) 32.3 - 35.7 g/dL [facility] RDW CV 16.8(H) 11.1 - 14.9 % [facility] RDW SD 49.4(H) 35.7 - 48.1 fL [facility] NRBC abs 0.00 0.00 - 0.01 K/cumm [facility] Blood 09/03/2024 6:33 AM CDT 09/03/2024 7:32 AM CDT us Milton Mclean MD LAB BLOOD ORDERABLES Final Result Performing Organization Address [facility]/ZIP Co de Phone Number [facility] [address] Department [place] [address] * (ABNORMAL) Comprehensive metabolic panel (09/03/2024 6:33 AM CDT) [facility] Sodium 139 135 - 145 mmol/L Potassium, pl 3.5 3.3 - 4.9 mmol/L [facility] Chloride 107 97 - 110 mmol/L [facility] CO2 21(L) 22 - 32 mmol/L [facility] Anion gap 11 2 - 15 mmol/L [facility] BUN 13 6 - 25 mg/dL [facility] Creatinine 0.77(L) 0.80 - 1.30 mg/dL [facility] Glucose 92 70 - 199 mg/dL [facility] Comment: Interpretive Data Fasting glucose >/= [...] 2022. Calcium 7.9(L) 8.5 - 10.3 mg/dL [facility] Bilirubin, total 0.6 0.1 - 1.2 mg/dL [facility] Protein, pl 6.0(L) 6.5 - 8.5 g/dL [facility] Albumin 2.4(L) 3.5 - 5.0 g/dL [facility] Alk phos 149(H) 40 - 130 Units/L [facility] ALT 23 7 - 55 Units/L [facility] AST 43 10 - 50 Units/L [facility] Blood 09/03/2024 6:33 AM CDT 09/03/2024 7:32 AM CDT us Kyrie Tucker MD LAB BLOOD ORDERABLES Final Re sult [facility] [address] Department [place] [address] * US RUQ (09/02/2024 5:26 PM [...] in interpretation, copy and paste this link: [email or web address] Current Interpretive Data last revised 2020. Trop T hs delta 3 ng/L [facility] Trop T hs interp Insignificant [facility] Blood 09/02/2024 4:20 PM CDT 09/02/2024 4:29 PM CDT Kyrie Tucker MD LAB BLOOD ORDERABLES Final Re sult Performing Organization Address City/[facility]/ZIP Co de Phone Number [facility] [address] [employer] [place], [place] [id number] * (ABNORMAL) Troponin T high-sensitivity 4-hour (09/02/2024 2:29 PM CDT) Trop T hs 71(H) <=22 ng/L Comment: Interpretive Data For further hscTnT resources including the diagnostic algorithm and an aid in interpretation, copy and paste this link: [email or web address]/[email or web address] Current Interpretive Data last revised 2020. Trop T hs delta 2 ng/L [facility] Trop T hs interp Insignificant [facility] Blood 09/02/2024 2:29 PM CDT 09/02/2024 2:29 PM CDT Kyrie Tucker MD LAB BLOOD ORDERABLES Final Re sult Performing Organization Address City/[facility]/ZIP Co de Phone Number [facility] [address] Department [facility] [place], [place] [id number] * (ABNORMAL) Troponin T high-sensitivity 2-hour (09/02/2024 11:08 AM CDT) Trop T hs 70(H) <=22 ng/L Comment: Interpretive Data For further hscTnT resources including the diagnostic algorithm and an aid in interpretation, copy and paste this link: [email or web address]/show/[email or web address] Current Interpretive Data last revised 2020. Trop T hs delta See Comment ng/L [facility] Comment:Inappropriate collec tion time to report a delta. Trop T hs pct delta See Comment % [facility] Comment:Inappropriate collec tion time to report a delta. Trop T hs interp See Comment [facility] Comment:Inappropriate collec tion time to report a delta. Blood 09/02/2024 11:0 8 AM CDT 09/02/2024 11:19 AM CDT Kyrie Tucker MD LAB BLOOD ORDERABLES Final Re sult Performing Organization Address [facility]/ZIP Co de Phone Number [facility] [address] Department [facility] [place] [address] * Blood culture Blood (09/02/2024 11:08 AM CDT) Report Final Report: No growth Blood 09/02/2024 11:0 8 AM CDT 09/02/2024 11:16 AM CDT Narrative [facility] - 09/07/2024 1:00 PM CDT From [...] organism identification may be performed using the [employer] Blood Culture Identification panel. This assay detects microbial DNA in a blood culture broth. This assay has been cleared by the [place] Food and Drug Administration and its performance characteristics have been verified by the [facility]. Interpretive data was last revised on December 10, 2022. Kyrie Tucker MD LAB MICROBIOLOGY - GENERAL OR DERABLES Final Result Performing Organization Address City/[facility]/ZIP Co de Phone Number [facility] [address] [place] [address] * Phosphorus (09/02/2024 9:38 AM CDT) Phosphorus, pl 2.5 2.3 - 4.5 mg/dL Blood 09/02/2024 9:38 AM CDT 09/02/2024 10:27 AM CDT Kyrie Tucker MD LAB BLOOD ORDERABLES Final Re sult Performing Organization Address City/[facility]/ZIP Co de Phone Number [facility] [address] [place] [address] * Magnesium (09/02/2024 9:38 AM CDT) Pathologist [facility] Magnesium 1.9 1.4 - 2.5 mg/dL Blood 09/02/2024 9:38 AM CDT 09/02/2024 10:27 AM CDT Kyrie Tucker MD LAB BLOOD ORDERABLES Final Re sult Performing Organization Address [facility] Co de Phone Number [facility] [address] [place] [address] * (ABNORMAL) Troponin T high-sensitivity series (baseline, 2hr, 4hr, 6hr) (09/02/2024 9:38 AM CDT) Pathologist [facility] Trop T hs 69(H) <=22 ng/L Comment: Interpretive Data For further hscTnT resources including the diagnostic algorithm and an aid in interpretation, copy and paste this link: [email or web address].[email or web address]/show/[email or web address] Current Interpretive Data last revised 2020. Blood 09/02/2024 9:38 AM CDT 09/02/2024 10:27 AM CDT Kyrie Tucker MD LAB BLOOD ORDERABLES Final Re sult Performing Organization Address City/[facility]/ZIP Co de Phone Number [facility] [address] [place] [address] * Sepsis Lactate w/ Reflex (09/02/2024 9:38 AM CDT) Sepsis Lactate 1.3 0.7 - 2.0 mmol/L Blood 09/02/2024 9:38 AM CDT 09/02/2024 10:23 AM CDT Kyrie Tucker MD LAB BLOOD ORDERABLES Final Re sult Performing Organization Address [facility] Co de Phone Number [facility] [address] [place] [address] * Blood culture Blood (09/02/2024 9:38 AM CDT) Report Final Report: No growth Blood 09/02/2024 9:38 AM CDT 09/02/2024 10:22 AM CDT Narrative [facility] - 09/07/2024 1:00 PM CDT Collection->Peripheral [...] organism identification may be performed using the Counsyl Blood Culture Identification panel. This assay detects microbial DNA in a blood culture broth. This assay has been cleared by the [place] Food and Drug Administration and its performance characteristics have been verified by the [facility]. Interpretive data was last revised on December 10, 2022. Kyrie Tucker MD LAB MICROBIOLOGY - GENERAL OR DERABLES Final Result Performing Organization Address [facility]/ZIP Co de Phone Number [facility] [address] [place] [address] * ECG 12 lead (09/02/2024 8:21 AM CDT) 09/02/2024 8:21 AM CDT Narrative [facility] - 09/02/2024 2:31 PM CDT Vent Rate: 92 bpm RR Interval: 650 msec NV Interval: 154 msec QRS Duration: 151 msec QT Interval: 406 msec QTC Interval: 456 msec P-R-T Breeding: 37 - 267 - 106 degrees IMPRESSION: ELECTRONIC VENTRICULAR PACEMAKER ABNORMAL RHYTHM ECG NO PRIOR TRACING Electronically Signed By: Mynor Arnett MD [facility] us Kyrie Tucker MD ECG ORDERABLES Final Result [facility] * eGFR (09/02/2024 6:11 AM CDT) [...] MD LAB BLOOD ORDERABLES Final Re sult [facility] [address] Department [place] [address] * Differential, auto (09/02/2024 6:11 AM CDT) Neutrophil abs 4.1 1.5 - 6.5 K/cumm Imm gran abs 0.1 0.0 - 0.1 K/cumm [facility] Lymphocyte abs 0.9 0.8 - 3.3 K/cumm [facility] Monocyte abs 0.5 0.2 - 0.8 K/cumm [facility] Eosinophil abs 0.3 0.0 - 0.5 K/cumm [facility] Basophil abs 0.1 0.0 - 0.1 K/cumm [facility] Neutrophil pct 70.0 % [facility] Comment: Interpretive Data Percent cell count reference ranges are not reported, since discordance with absolute values may lead to misinterpretation of CBC data. Current Interpretive Data was last revised on 2018. Imm gran pct 0.9 % [facility] Comment: Interpretive Data Percent cell count reference ranges are not reported, since discordance with absolute values may lead to misinterpretation of CBC data. Current Interpretive Data was last revised on 2018. Lymphocyte pct 15.2 % [facility] Comment: Interpretive Data Percent cell count reference ranges are not reported, since discordance with absolute values may lead to misinterpretation of CBC data. Current Interpretive Data was last revised on 2018. Monocyte pct 8.3 % [facility] Comment: Interpretive Data Percent cell count reference ranges are not reported, since discordance with absolute values may lead to misinterpretation of CBC data. Current Interpretive Data was last revised on 2018. Eosinophil pct 4.7 % [facility] Comment: Interpretive Data Percent cell count reference ranges are not reported, since discordance with absolute values may lead to misinterpretation of CBC data. Current Interpretive Data was last revised on 2018. Basophil pct 0.9 % [facility] Comment: Interpretive Data Percent cell count reference ranges are not reported, since discordance with absolute values may lead to misinterpretation of CBC data. Current Interpretive Data was last revised on 2018. Blood 09/02/2024 6:11 AM CDT 09/02/2024 6:52 AM CDT us oJse Enriquez MD LAB BLOOD ORDERABLES Final Re sult Performing Organization Address City/[facility]/ZIP Co de Phone Number [facility] [address] [place] [address] * Phosphorus (09/02/2024 6:11 AM CDT) Pathologist [facility] Phosphorus, pl 2.3 2.3 - 4.5 mg/dL Blood 09/02/2024 6:11 AM CDT 09/02/2024 6:51 AM CDT us Jose Enriquez MD LAB BLOOD ORDERABLES Final Re sult Performing Organization Address [facility] Co de Phone Number [facility] [address] [place] [address] * (ABNORMAL) Bilirubin, direct (09/02/2024 6:11 AM CDT) Pathologist [facility] Bilirubin, direct 0.4(H) 0.1 - 0.3 mg/dL Blood 09/02/2024 6:11 AM CDT 09/02/2024 6:51 AM CDT us Jose Enriquez MD LAB BLOOD ORDERABLES Final Re sult Performing Organization Address City/[facility] Co de Phone Number [facility] [address] Department of [place], [place] [id number] * (ABNORMAL) Comprehensive metabolic panel (09/02/2024 6:11 AM CDT) Sodium 140 135 - 145 mmol/L Potassium, pl 3.5 3.3 - 4.9 mmol/L [facility] Chloride 106 97 - 110 mmol/L [facility] CO2 21(L) 22 - 32 mmol/L [facility] Anion gap 13 2 - 15 mmol/L [facility] BUN 14 6 - 25 mg/dL [facility] Creatinine 0.74(L) 0.80 - 1.30 mg/dL [facility] Glucose 100 70 - 199 mg/dL [facility] Comment: Interpretive Data Fasting glucose >/= [...] 2022. Calcium 7.7(L) 8.5 - 10.3 mg/dL [facility] Bilirubin, total 0.7 0.1 - 1.2 mg/dL [facility] Protein, pl 6.1(L) 6.5 - 8.5 g/dL [facility] Albumin 2.7(L) 3.5 - 5.0 g/dL [facility] Alk phos 146(H) 40 - 130 Units/L [facility] ALT 23 7 - 55 Units/L [facility] AST 38 10 - 50 Units/L [facility] Blood 09/02/2024 6:11 AM CDT 09/02/2024 6:51 AM CDT Jose Enriquez MD LAB BLOOD ORDERABLES Final Re sult [facility] [address] Department [place] [address] * (ABNORMAL) CBC with auto differential (09/02/2024 6:11 AM CDT) [facility] WBC 5.8 3.8 - 9.9 K/cumm Hgb 7.9(L) 13.0 - 17.5 g/dL [facility] Hct 27.3(L) 38.9 - 50.3 % [facility] Plt 186 150 - 400 K/cumm [facility] MPV 9.8 9.1 - 12.3 fL [facility] RBC 3.35(L) 4.30 - 5.80 M/cumm [facility] MCV 81.5 81.3 - 96.4 fL [facility] MCH 23.6(L) 27.1 - 33.3 pg [facility] MCHC 28.9(L) 32.3 - 35.7 g/dL [facility] RDW CV 16.8(H) 11.1 - 14.9 % [facility] RDW SD 49.3(H) 35.7 - 48.1 fL [facility] NRBC abs 0.00 0.00 - 0.01 K/cumm [facility] Blood 09/02/2024 6:11 AM CDT 09/02/2024 6:52 AM CDT Milton Mclean MD LAB BLOOD ORDERABLES Final Result [facility] [address] Department [place] [address] * eGFR (09/01/2024 9:13 PM CDT) [facility] eGFR >90 >=60 mL/min/1. 73 m2 [...] ORDERABLES Final Re sult Performing Organization Address [facility] Co de Phone Number [facility] [address] [place] [address] * (ABNORMAL) Phosphorus (09/01/2024 9:13 PM CDT) Phosphorus, pl 2.0(L) 2.3 - 4.5 mg/dL Blood 09/01/2024 9:13 PM CDT 09/01/2024 9:29 PM CDT Jose Enriquez MD LAB BLOOD ORDERABLES Final Re sult Performing Organization Address [facility] de Phone Number [facility] [address] [place] [address] * (ABNORMAL) Bilirubin, direct (09/01/2024 9:13 PM CDT) Bilirubin, direct 0.5(H) 0.1 - 0.3 mg/dL Blood 09/01/2024 9:13 PM CDT 09/01/2024 9:29 PM CDT us Jose Enriquez MD LAB BLOOD ORDERABLES Final Re sult [facility] [address] Department [place] [address] * (ABNORMAL) Comprehensive metabolic panel (09/01/2024 9:13 PM CDT) [facility] Sodium 138 135 - 145 mmol/L Potassium, pl 3.5 3.3 - 4.9 mmol/L [facility] Chloride 105 97 - 110 mmol/L [facility] CO2 22 22 - 32 mmol/L [facility] Anion gap 11 2 - 15 mmol/L [facility] BUN 14 6 - 25 mg/dL [facility] Creatinine 0.76(L) 0.80 - 1.30 mg/dL [facility] Glucose 110 70 - 199 mg/dL [facility] Comment: Interpretive Data Fasting glucose >/= [...] 2022. Calcium 8.1(L) 8.5 - 10.3 mg/dL [facility] Bilirubin, total 0.8 0.1 - 1.2 mg/dL [facility] Protein, pl 6.6 6.5 - 8.5 g/dL [facility] Albumin 3.1(L) 3.5 - 5.0 g/dL [facility] Alk phos 148(H) 40 - 130 Units/L [facility] ALT 26 7 - 55 Units/L [facility] AST 40 10 - 50 Units/L [facility] Blood 09/01/2024 9:13 PM CDT 09/01/2024 9:29 PM CDT us Jose Enriquez MD LAB BLOOD ORDERABLES Final Re sult [facility] [address] Department [place] [address] documented in this encounter Visit Diagnoses Not on filedocumented in this encounter Admitting Diagnoses Diagnosis Acute cholecystitis documented in this encounter Administered Medications Inactive Administered Medications - up to 3 most recent administrations Medication Order MAR Action Action Date Dose Rate Site acetaminophen (TYLENOL) tablet 650 mg 650 mg, oral, Every 6 hours PRN, 1st line for pain, fever, fever greater than 38.3 C, Starting on Wed09/01/24 at 1842, Indications: Fever, PainIndications:Fever,Pain Given 09/04/2024 8:04 PM CDT 650 mg Given 09/03/2024 10:42 PM CDT 650 mg albuterol HFA (PROVENTIL HFA,VENTOLIN HFA,PROAIR HFA) 90 mcg/actuation inhaler 2 puff 2 puff, inhalation, Every 6 hours PRN (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), wheezing, Starting on 09/02/24 at 0628, Indications: [...] Given 09/05/2024 8:41 AM CDT 0.5 mg BUPivacaine (MARCAINE) 0.25 % (2.5 mg/mL) preservative free injection As needed, Starting on Wed09/04/24 at 1434, Intra-Op Given 09/04/2024 2:34 PM CDT 20 mL Surgical Site Carrier Fluids for Secondary Infusion - 0.9% [...] Given 09/04/2024 7:55 PM CDT 0.2 mg isosorbide mononitrate ER (IMDUR) extended release tablet 15 mg 15 mg, oral, Daily, First dose on Wed09/02/24 at 0900, Tablets that are scored may be split, but do not crush, chew, dissolve, open or otherwise manipulate tablet/capsule. Given 09/07/2024 8:30 AM CDT 15 m g Given 09/06/2024 8:22 AM CDT 15 mg [...] AM CDT 10 mL sodium chloride 0.9% irrigation As needed, Starting on 09/04/24 at 1349, Intra-Op Given 09/04/2024 1:53 PM CDT 1,000 mL Surgical Site Given 09/04/2024 1:49 PM CDT 500 mL Schmidt rgical Site documented in this encounter Discontinued Medications Medication [...] 09/01/2024 pen needle, diabetic 32 gauge x needle Use as directed 3 times a [...] 0830 (Given - Provider: Cathi Reyes RN) carvediloL (COREG) tablet 3.125 mg 3.125 mg, oral, 2 times daily with meals (bkfst, dinner), First dose on 09/02/24 at 0800 0841 (Given - Provider: Veronica Moreno RN)1340 ([facility] Hold - Provider: Automatic Transfer Provider - Reason: Patient not available)1639 ([facility] Unhold - Provider: Automatic Transfer Provider)1659 (Given - Provider: Veronica Moreno RN) 0822 (Given - Provider: Veronica Moreno RN)1710 (Given - Provider: Veronica Moreno, NAVIN) 0830 (Given - Provider: Cathi Reyes RN) DULoxetine DR (CYMBALTA) extended release capsule 60 mg 60 mg, oral, Every morning, First dose on 09/02/24 at 0900, Capsule may be opened and contents mixed with applesauce or apple juice ONLY. Do not crush or chew capsule, Indications: Diabetic Peripheral Neuropathy 0905 (Unheld by Provider - Provider: Giovanny Garcia MD)1007 (Given - Provider: Veronica Moreno RN)1340 ([facility] Hold - Provider: Automatic Transfer Provider - Reason: Patient not available)1639 ([facility] Unhold - Provider: Automatic Transfer Provider) 0822 (Given - Provider: Veronica Moreno RN) 0830 (Given - Provider: Cathi Reyes RN) enoxaparin (LOVENOX) syringe 40 mg 40 mg, subcutaneous, Daily (for enoxaparin), First dose on Wed09/05/24 at 2100, Indications: VTE Prophylaxis 1340 ([facility] Hold - Provider: Automatic Transfer Provider - Reason: Patient not available)1639 ([facility] Unhold - Provider: Automatic Transfer [...] 0841 (Given - Provider: Veronica Moreno RN)1340 ([facility] Hold - Provider: Automatic Transfer Provider - Reason: Patient not available)1639 ([facility] Unhold - Provider: Automatic Transfer Provider) 0822 (Given - Provider: Veronica Moreno RN) 0830 (Given - Provider: Cathi Reyes, RN) pantoprazole DR (PROTONIX) extended release tablet 40 mg 40 mg, oral, Daily, First dose on 09/02/24 at 0900, Do not crush, chew, cut, dissolve, open or otherwise manipulate tablet/capsule., Indications: Stress Ulcer Prophylaxis 0841 (Given - Provider: Veronica Moreno RN)1340 ([facility] Hold - Provider: Automatic Transfer Provider - Reason: Patient not available)1639 ([facility] Unhold - Provider: Automatic Transfer Provider) 0822 (Given - Provider: Veronica Moreno RN) 0830 (Given - Provider: Cathi Reyes, RN) piperacillin-tazobacta m (ZOSYN) 3.375 g in sodium chloride 0.9% 100 mL IVPB (COMPLETED) 3.375 g, intravenous, at 200 mL/hr, Administer over 30 Minutes, Every 6 hours scheduled, First dose on 09/02/24 at 0730, For 20 doses, Mini-Bag Plus bag, Indications: Abdominal/Pelvic Infection 0516 (New Bag - Provider: Suzie Fitch, NAVIN)0545 (Stopped - Provider: Suzie Fitch, NAVIN)1302 (New Bag - Provider: Veronica Moreno RN)1340 ([facility] Hold - Provider: Automatic Transfer Provider - Reason: Patient not available)1639 ([facility] Unhold - Provider: Automatic Transfer Provider)1659 (New [...] available)163 ([facility] Unhold - Provider: Automatic Transfer Provider)2058 (Given - Provider: Marleni Burgess RN) 0822 (Given - Provider: Veronica Moreno RN)212 (Given - Provider: Marleni Burgess RN) 0830 (Given - Provider: Cathi Reyes RN) sodium chloride 0.9% flush 0.5-20 mL 0.5-20 mL, intra-catheter, Every 8 hours scheduled, First dose on Wed09/01/24 at 2200, Flush volume based on line type and size. 0616 (Not Given - Provider: Suzie Fitch RN - Reason: IV Infusing)1303 (Not Given - Provider: Veronica Moreno RN - Reason: Other)1340 ([facility] Hold - Provider: Automatic Transfer Provider - Reason: Patient not available)163 ([facility] Unhold - Provider: Automatic Transfer Provider)2100 (Not [...] Infusing)1303 (Given - Provider: Veronica Moreno RN)1340 ([facility] Hold - Provider: Automatic Transfer Provider - Reason: Patient not available)1639 ([facility] Unhold - Provider: Automatic Transfer Provider)210 (Given - Provider: Marleni Burgess, NAVIN) 0630 (Given - Provider: Marleni Burgess RN)1208 (Given - Provider: Veronica Moreno, NAVIN)2127 (Given - Provider: Marleni Burgess, NAVIN) 0645 (Given - Provider: Marleni Burgess RN)1452 (Not Given - Provider: Cathi Reyes RN - Reason: Loss of IV access - Comment: IV removed, pt discharged) PRN Medication Order 09/05/2024 09/06/2024 09/07/2024 acetaminophen (TYLENOL) tablet 650 mg 650 mg, oral, Every 6 hours PRN, 1st line for pain, fever, fever greater than 38.3 C, Starting on 09/01/24 at 1842, Indications: Fever, Pain 1340 ([facility] Hold - Provider: Automatic Transfer Provider - Reason: Patient not available)163 ([facility] Unhold - Provider: Automatic Transfer Provider) albuterol HFA (PROVENTIL HFA,VENTOLIN HFA,PROAIR HFA) 90 mcg/actuation inhaler 2 puff 2 puff, inhalation, Every 6 hours PRN (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), wheezing, Starting on 09/02/24 at 0628, Indications: Acute Asthma Attack, Bronchospasm Prevention 1340 ([facility] Hold - Provider: Automatic Transfer Provider - Reason: Patient not available)163 ([facility] Unhold - Provider: Automatic Transfer Provider) bisacodyL (DULCOLAX) suppository 10 mg(Linked Group 1) 10 mg, rectal, Daily PRN, constipation, if no results 24 hours after polyethylene glycol administration, Starting on 09/02/24 at 0626, Administer if not tolerating PO., Indications: constipation 1340 ([facility] Hold - Provider: Automatic Transfer Provider - Reason: Patient not available)1639 ([facility] Unhold - Provider: Automatic Transfer Provider) bisacodyl EC (DULCOLAX EC) tablet 10 mg(Linked Group 1) 10 mg, oral, Daily PRN, constipation, if no results 24 hours after polyethylene glycol administration, Starting on 09/02/24 at 0626, Administer if tolerating PO. Do not crush, chew, cut, dissolve, open or otherwise manipulate tablet/capsule., Indications: constipation 1340 ([facility] Hold - Provider: Automatic Transfer Provider - Reason: Patient not available)1639 ([facility] Unhold - Provider: Automatic Transfer [...] primary IV, not intended for KVO. 1340 ([facility] Hold - Provider: Automatic Transfer Provider - Reason: Patient not available)1639 ([facility] Unhold - Provider: Automatic Transfer [...] primary IV, not intended for KVO. 1340 ([facility] Hold - Provider: Automatic Transfer Provider - Reason: Patient not available)1639 ([facility] Unhold - Provider: Automatic Transfer Provider) HYDROcodone-acetaminophen (NORCO) 5-325 mg per tablet 1 tablet 1 tablet, oral, Every 4 hours PRN, 2nd line for pain, Starting on Wed09/01/24 at 2118, Indications: Pain 1043 (Given - Provider: Veronica Moreno RN)1340 ([facility] Hold - Provider: Automatic Transfer Provider - Reason: Patient not available)1639 ([facility] Unhold - Provider: Automatic Transfer Provider) 0955 (Given - Provider: Veronica Moreno RN) 0211 (Given - Provider: Marleni Burgess RN - Comment: rt abdomen incision site)0830 (Given - Provider: Cathi Reyes, NAVIN)1403 (Given - Provider: Cathi Reyes, RN) HYDROmorphone (PF) (DILAUDID) injection 0.2 mg 0.2 mg, intravenous, Administer over 2 Minutes, Every 6 hours PRN, other, as needed for severe pain. Please hold for SBP < 110 or worsening SOB or sleepiness, Starting on Wed09/01/24 at 2107 0712 (Given - Provider: Suzie Fitch, RN)1043 (Canceled Entry - Provider: Veronica Moreno, NAVIN)1340 ([facility] Hold - Provider: Automatic Transfer Provider - Reason: Patient not available)1639 ([facility] Unhold - Provider: Automatic Transfer Provider)1653 (Given [...] at 1842, Indications: Nausea and Vomiting 1340 ([facility] Hold - Provider: Automatic Transfer Provider - Reason: Patient not available)163 ([facility] Unhold - Provider: Automatic Transfer Provider) ondansetron ODT (ZOFRAN-ODT) disintegrating tablet 4 mg(Linked Group 2) 4 mg, oral, Every 6 hours PRN, nausea, vomiting, Starting on Wed09/01/24 at 1842, Indications: Nausea and Vomiting 1340 ([facility] Hold - Provider: Automatic Transfer Provider - Reason: Patient not available)163 ([facility] Unhold - Provider: Automatic Transfer Provider) polyethylene glycol (MIRALAX) packet 17 g 17 g, oral, Daily PRN, constipation, Starting on Wed09/02/24 at 0626, Indications: constipation 1340 ([facility] Hold - Provider: Automatic Transfer Provider - Reason: Patient not available)163 ([facility] Unhold - Provider: Automatic Transfer Provider) sodium chloride 0.9% flush 0.5-20 mL 0.5-20 mL, intra-catheter, As needed, line care, Starting on Wed09/01/24 at 1842, Flush volume based on line type and size. Flush before and after each use. 1340 ([facility] Hold - Provider: Automatic Transfer Provider - Reason: Patient not available)1639 ([facility] Unhold - Provider: Automatic Transfer Provider) sodium chloride 0.9% flush 0.5-20 mL 0.5-20 mL, intra-catheter, As needed, line care, Starting on 09/02/24 at 0625, Flush volume based on line type and size. Flush before and after each use. 1340 ([facility] Hold - Provider: Automatic Transfer Provider - Reason: Patient not available)1639 ([facility] Unhold - Provider: Automatic Transfer [...] enoxaparin (LOVENOX) syringe 40 mg 1 2023 indomethacin (INDOCIN) 50 mg suppository 1 09/05/2024 ioversoL (OPTIRAY 350) injec tion 0.01-500 mL 1 09/05/2024 acetaminophen (TYLENOL) tablet 1,000 mg 2 1 09/03/2024 albuterol 2.5 mg /3 mL (0.08 3 %) nebulizer solution 2.5 mg 1 09/04/2024 dextrose (D10W) 10% bolus 250 [...] % nebulizer solution 0.5 mL 1 09/04/2024 Lactated Ringer's (LR) infusion 2 4 09/02/2024 lidocaine (PF) (XYLOCAINE) 1 0 mg/mL (1 %) preservative free injection 2- mg 1 09/03/2024 sodium chloride 0.9% flush [...] 09/04/2024 documented in this encounter Care Teams Renderer Relationship Specialty Start Date End Date Juan Retana MD [id number] [facility] [address] [place] [address] PCP - General Internal Medicine 07/05/24 [facility] [address] [place] [address] Referring Physician Cardiology 07/05/24 Johnathan Mckee MD [id number] [place] [address] Consulting Physician General Surgery 08/11/24 documented as of this encounter
--- OUTSIDE RECORDS SUMMARY | 2024-11-17 04:26 | XMS_ITS | Encounter Summary ---
Author Organization [facility] Address [address] [facility] [address] [place] [address] Phone Care Team Providers Care Director Of Content Marketing Name Role Phone Juan Retana MD Primary Care Provider [phone] [facility], Alverto Gutierrez Unavailable Johnathan Mckee MD Unavailable [phone] Encounter Details Date Type Department Care Team (Late st Contact Info) Description 08/11/2024 Orders Only [facility] Cardiothoracic Surgery [address] [facility] 8th Floor [address] Room [address] [address] Johnathan Mckee MD [address] [facility] [address] [place] [address] Status post cardiac surgery (Primary Dx) Social History Tobacco Use Types Packs/Day Years Used Date Smoking Tobacco: Former Cigarettes 1.5 19.6 1 961 - 06/11/1980 Passive Smoke Exposure: Past Smokeless Tobacco: Never Alcohol Use Standard Drinks/Week Comments Yes 0 (1 standard drink = 0.6 oz pur e alcohol) rare - maybe 1 beer/month AUDIT-C Answer Date Recorded Q1: How often do you have a drink containing alc ohol? Monthly or less 07/24/2024 Q2: How many drinks containi ng alcohol do you have on a typical day when you are drinking? 1 or 2 07/24/2024 Q3: How often do you have si x or more drinks on one occasion? 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 Gender Identity Not on file Sexual Orientation Not on file documented as of this encounter Plan of Treatment Scheduled Orders Name Type Priority Associated Diagnoses Orde r Schedule XR Chest Pa Lateral 2 Views Imaging Schedule Routine, Read Routine (OP Routine) Status post cardiac surgery Expected: 09/12/2024 (Approximate), Expires: 08/11/2025 documented as of this encounter Visit Diagnoses Diagnosis Status post cardiac surgery- Primary documented in this encounter Care Teams Director Of Content Marketing Relationship Specialty Start Date End Date Juan Retana MD [address] [facility] [address] [place] [address] PCP - General Internal Medicine 07/05/24 [facility], Alverto Gutierrez [address] [place] [address] Referring Physician Cardiology 07/05/24 Johnathan Mckee MD [address] [facility] [address] [place] [address] Consulting Physician General Surgery 08/11/24 documented as of this encounter
--- OUTSIDE RECORDS SUMMARY | 2024-11-17 04:26 | XMS_ITS | Encounter Summary ---
Author Organization [facility] Address [address] [place] [address] Phone Care Team Providers Care Production Intern Name Role Phone Juan Retana MD Primary Care Provider [phone] [facility], Alverto Gutierrez Unavailable Johnathan Mckee MD Unavailable [phone] Encounter Details Date Type Department Care Team (Late st Contact Info) Description 08/18/2024 Telephone [facility] Cardiology [address] [facility] Advanced Medicine 8th [place] [address] [place] [address] Lucy Meyer MD [address] [facility] [place], [place] [id number] Social History Tobacco Use Types Packs/Day Years [...] on file 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 Patient was unsure andis currently at [facility] for rehab. He was going to ask the nurses to help him. CL shows he is connected but wanted to verify what he has as it appears a home monitor was shipped to his address but the patient hasn't been home yet so asked him to have the nurses look for the JAMAL on his phone ( he did not have his phone at the appointment) * Telephone Encounter - Jessica Sorto RN - 08/18/2024 3:32 PM CDT ----- Message from Nurse Jessica Gallego sent at 08/15/2024 2:46 PM CDT ----- Patient at [facility] appointment 08-15-24. [facility] and is unaware if he has a bedside monitor. CL shows he is connected. Call and verify if he has JAMAL or bedside. documented in this encounter Plan of Treatment Not on file documented as of this encounter Visit Diagnoses Not on filedocumented in this encounter Care Teams Production Intern Relationship Specialty Start Date End Date Juan Retana MD [address] [facility]ARE [address] [place] [address] PCP - General Internal Medicine 07/05/24 [facility], Alverto Gutierrez [address] [place] [address] Referring Physician Cardiology 07/05/24 Johnathan Mckee MD [address] [facility] [address] [place] [address] Consulting Physician General Surgery 08/11/24 documented as of this encounter
--- OUTSIDE RECORDS SUMMARY | 2024-11-17 04:26 | XMS_ITS | Encounter Summary ---
Author Organization [facility] Address [address] [place] [address] Phone Care Team Providers Care Insurance Executive Name Role Phone Juan Retana MD Primary Care Provider [phone] [facility], Alverto Gutierrez Unavailable Johnathan Mckee MD Unavailable [phone] Reason for Referral * Cardiology (Routine) - Authorized Specialty Diagnoses / Procedures Referred By Contac t Referred To Contact Diagnoses Encounter for fitting or adjustment of automatic implantable cardioverter-defibrillator Complete heart block (CMS/HCC) (HCC) Procedures DEVICE CHECK - IN OFFICE Lucy Meyer MD Phone: tel: fax: [facility] (All Locations) Referral ID Status Reason Start Date Expiration Date V isits Requested Visits Authorized [id number] Authorized 08/15/2024 09/14/2025 1 1 Reason for Visit * Cardiology (Routine) - Closed Specialty Diagnoses / Procedures Referred By Contac t Referred To Contact Diagnoses Encounter for fitting or adjustment of automatic implantable cardioverter-defibrillator Procedures DEVICE CHECK - IN OFFICE Altagracia Roman NP [address] [place] [address] Phone: tel: fax: [facility] (All Locations) Referral ID Status Reason Start Date Expiration Date Visits Re quested Visits Authorized [id number] Closed 08/03/2024 09/02/2025 1 1 Encounter Details Date Type Department Care Team (Latest Contact Info) Description 08/15/2024 2:45 PM CDT Ancillary Procedure 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 Gender Identity Not on file Sexual Orientation Not on file documented as of this encounter Last Filed Vital Signs Vital Sign Reading Time Taken Comments Blood Pressure 125/72 08/15/2024 1:50 PM CDT Pulse 85 08/15/2024 1:50 PM CDT Temperature - - Respiratory Rate - - Oxygen Saturation 96% 08/15/2024 1:50 PM CDT Inhaled Oxygen Concentration - - Weight 95.7 kg (211 lb) 08/15/2024 1:50 PM CDT Height 177.8 cm (5' 10 ) 08/15/2024 1:50 PM CDT Body Mass Index 30.28 08/15/2024 1:50 PM CDT documented in this encounter Plan of Treatment Scheduled Orders Name Type Priority Associated Diagnoses Orde r Schedule DEVICE CHECK - IN OFFICE Cardiac Services Routine Encounter for fitting or adjustment of automatic implantable cardioverter-defibrill ator Complete heart block (CMS/HCC) ([facility]) [I44.2] Expected: 11/15/2024 (Approximate), Expires: 02/13/2026 documented as of this encounter Procedures Procedure Name Priority Date/Time Associated Diagnosis Comments DEVICE CHECK - IN OFFICE Routine 08/15/2024 1:42 PM CDT Encounter for fitting or adjustment of automatic implantable cardioverter-defibri llator documented in this encounter Results * DEVICE CHECK - IN OFFICE (08/15/2024 1:42 PM CDT) Anatomical Region Laterality Modality Other 08/15/2024 2:00 AM CDT Narrative 08/15/2024 4:18 PM CDT Interpretation Summary: Battery and Leads (BL) Normal parameters noted on battery and lead(s) --- Estimated battery longevity 8.3 years. Presenting Rhythm (CO) Atrial Sensing-BiVentricular Pacing (-BiVP) --- /BiVP 85 bpm. Underlying /VS, COMPLETE HEART BLOCK 40 bpm. Arrhythmic events (AE) No new arrhythmic events in monitoring period Transmission Information (TI) Device Summary Report Procedure Note Khari Santana MD - 08/15/2024 Interpretation Summary: Battery and Leads (BL) Normal parameters noted on battery and lead(s) --- Estimated batterylongevity 8.3 years. Presenting Rhythm (CO) Atrial Sensing-BiVentricular Pacing (-BiVP) --- /BiVP 85 bpm.Underlying /VS, COMPLETE HEART BLOCK 40 bpm. Arrhythmic events (AE) No new arrhythmic events in monitoring period Transmission Information (TI) Device Summary Report us Altagracia Roman NP CV CARDIAC SERVICES PROCEDUR ES Final Result documented in this encounter Visit Diagnoses Diagnosis Complete heart block (CMS/HCC) ([facility]) [I44.2]- Primary Atrioventricular block, complete Encounter for fitting or adjustment of automatic implantable cardioverter-defibrillator documented in this encounter Historical Medications * This list may reflect changes made after this encounter. bumetanide (BUMEX) 1 mg tablet Take 0.5 tablets (0.5 mg total) by mouth 06/07/2024 naproxen (ALEVE) 220 mg tablet Take 1 tablet (220 mg total) by mouth 07/02/2023 09/01/2024 semaglutide (OZEMPIC) 1 mg/dose (4 mg/3 mL) pen injector injection Inject under the skin 05/01/2024 09/01/2024 metFORMIN XR (GLUCOPHAGE XR) 500 mg 24 hr tablet Take 2 tablets (1,000 mg total) by mouth 02/02/2024 09/01/2024 insulin glargine (TOUJEO MAX) 300 unit/mL (3 mL) pen for injection Inject under the skin 11/18/2023 09/01/2024 added in this encounter Care Teams Insurance Executive Relationship Specialty Start Date End Date Juan Retana MD [address] [facility] [address] [address] [place] [address] PCP - General Internal Medicine 07[facility]05[facility]24 [facility] [place] [address] Referring Physician Cardiology 07/05/24 Johnathan Mckee MD [address] [facility] [address] [place] [address] Consulting Physician General Surgery 08/11/24 documented as of this encounter
--- OUTSIDE RECORDS SUMMARY | 2024-11-17 04:26 | XMS_ITS | Encounter Summary ---
Author Organization [facility] Address [address] [place] [address] Phone Care Team Providers Care Spinning Machine Tender Name Role Phone Juan Retana MD Primary Care Provider [phone] [facility], Alverto Gutierrez Unavailable Johnathan Mckee MD Unavailable [phone] Encounter Details Date Type Department Care Team (Late st Contact Info) Description 08/18/2024 Telephone [facility] Cardiology [address] [facility] 8th [place] [address] [place] [address] Lucy Meyer MD [address] [facility] [address] [place], [place] [id number] Social History Tobacco Use Types Packs/Day Years [...] on file 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 He will plug in at home when he returns home next week. * Telephone Encounter - Rain Rivas - 08/18/2024 3:50 PM CDT Mitch Fortuneg to nurse. Pt just opened the device box. It is a medtronic, it has the model number [id number]. Pls call pt. documented in this encounter Plan of Treatment Not on file documented as of this encounter Visit Diagnoses Not on filedocumented in this encounter Care Teams Spinning Machine Tender Relationship Specialty Start Date End Date Juan Retana MD [address] [facility] [address] [address] [place] [address] PCP - General Internal Medicine 07/05/24 [facility] [address] [place] [address] Referring Physician Cardiology 07/05/24 Johnathan Mckee MD [address] [place] [address] Consulting Physician General Surgery 08/11/24 documented as of this encounter
--- OUTSIDE RECORDS SUMMARY | 2024-11-17 04:26 | XMS_ITS | Encounter Summary ---
Author Organization [facility] Address [address] [place] [address] Care Team Providers Care Rubber Compounder Supervisor Name Role Phone Juan Retana MD Primary Care Provider [phone] [facility], Alverto Gutierrez Unavailable Johnathan Mckee MD Unavailable [phone] Reason for Visit * Auth/Cert (Routine) Specialty Diagnoses / Procedures Referred By Contac t Referred To Contact Diagnoses Acute cholecystitis cholecystitis Procedures na Referral ID Status Reason Start Date Expiration Date Visits Re quested Visits Authorized [id number] 1 1 Encounter Details Date Type Department Care Team (Late st Contact Info) Description 09/04/2024 1:14 PM CDT Anesthesia Event [facility] Operating Room [facility] [place] [address] Gorge Jones MD [address] [place] [address] Wiley Hernandez MD [address] [place] [id number] Anesthesia Record Procedure Summary Procedure Name Responsible Anesthesiologist Anesthesia Start Time Anesthesia Stop Time LAPAROSCOPIC CHOLECYSTECTOMY (Abdomen) Gorge Jones MD 09/04/24 1314 09/04/24 1503 Events Date Time Event Comment 09/04/2024 1242 1314 An Start 1316 In Room 1316 An Start Data 1323 An Induction The patient was reevaluated immediately before moderate or deep sedation use and before anesthesia induction. 1326 An Intubation 1330 Anesthesia Ready 1339 Proc Start 1340 Incision Start 1449 Proc Fin 1453 An Extubation 1456 an stop data 1457 Out of Room 1503 Handoff to RN I completed my handoff [...] disposition at the time of handoff: PACU 1503 An Stop Meds Name Total fentaNYL 100 mcg lidocaine (CARDIAC) syringe 2 % 5 mL rocuronium 80 mg sugammadex 200 mg ondansetron 4 mg dexamethasone 4 mg/ml 4 mg etomidate 12 mg norepinephrine infusion (premix) 0.21 mg norepinephrine 8 mcg piperacillin-tazobactam (ZOSYN) 3.375 g in sodium chloride 0.9% 100 mL IVPB 3.375 g Lactated Ringer's (LR) infusion 0 mL * Agents Name O2 N2O Air Sevoflurane Inspired Sevoflurane * Blood Name Total PRBC - CROSSMATCHED 250 mL Lines, Drains, and Airways Type Details Placement Removal Wound 09/04/24; Incision; Abdomen (trocar sites) 09/04/24 0000 by Katerine Medina, NAVIN RETIRED Surgical Site 06/28/20; 1525; Le ft; Eye; 10/10/24 (Retired LDA, Removed/Completed by [facility] with LDA Utility); 1213 (Retired LDA, Removed/Completed by [facility] with LDA Utility); Other (Comment) 06/28/20 1525 by Celina Eagle RN 10/10/24 1213 by Discharge Provider, Automatic RETIRED Surgical Site 06/28/20; 1525; Ri ght; Eye; 10/10/24 (Retired LDA, Removed/Completed by [facility] with LDA Utility); 1213 (Retired LDA, Removed/Completed by [facility] with LDA Utility); Other (Comment) 06/28/20 1525 by Celina Eagle RN 10/10/24 1213 by Discharge Provider, Automatic Wound 07/24/24; 0957; Incision; Chest; Anterior, Medial; 09/07/24 07/24/24 0957 by Abebe Avila RN 09/07/24 0000 by Cathi Reyes RN Wound 07/24/24; 0957; Incision; Arm; Left; 09/07/24 07/24/24 0957 by Abebe Avila RN [...] Peripheral IV Placement Date: 09/04/24; Placement Time: 137; Catheter Size: 20 G; Orientation: Posterior, Right; Location: Forearm; Site Prep: Chlorhexidine; Technique: Anatomical landmarks; Inserted by: JOESPH; Insertion Attempts: 1; Patient Tolerance: Tolerated well; Removal Date: 09/04/24; Removal Time: 1999; Removal Reason: Infiltrated 09/04/24 013 by Briseida Varela RN 09/04/241999 by Suzie Fitch RN Peripheral IV Placement Date: 09/04/24; Placement Time: 1326 (created via procedure documentation); Catheter Size: 18 G; Orientation: Left; Location: Forearm; Site Prep: Chlorhexidine; Insertion Attempts: 1; Removal Date: 09/05/24; Removal Time: 170; Removal Reason: Removed by patient 09/04/24 132 by Myesha Amador CRNA 09/05/24 1706 by Veronica Mathis RN NG/OG/Gastric tube Placement Date: 09/04/24; Placement Time: 1328; Inserted by: Israel Amador CRNA; Type: Orogastric; Location: Center mouth; Removal Date: 09/04/24; Removal Time: 1845 (previously removed) 09/04/24 1328 by Myesha Amador CRNA 09/04/24 1845 by Suzie Fitch RN Peripheral IV Placement Date: 09/04/24; Placement Time: 133; Catheter Size: 18 G; Orientation: Left; Location: Forearm; Site Prep: Chlorhexidine; Technique: Anatomical landmarks; Inserted by: Miguel Jones MD; Insertion Attempts: 1; Removal Date: 09/04/24; Removal Time: 1999 (already documented this iv); Removal Reason: Other (Comment) 09/04/24 1332 by Myesha Amador CRNA 09/04/241999 by Suzie Fitch RN ETT Placement Date: 09/04/24; Placement Time: 134 (created via procedure documentation); Mask Ventilation: 1; Technique: Direct laryngoscopy; Type: ETT - single; Single Lumen Tube Size: 8 mm; Cuffed: Yes; Laryngoscope: Lange; Blade Size: 3; Location: Oral; Grade View: Grade I; Insertion Attempts: 1; Placement Verification: Auscultation, Capnometry; Airway Comment: Eyes taped prior to masking. Lips/dentition unchanged from preop.; Removal Date: 09/04/24; Removal Time: 14509/04/24 1345 by Myesha Amador CRNA 09/04/24 1453 by Sindi Lowe CRNA documented in this encounter Social History Tobacco Use Types Packs/Day Years Used Date Smoking Tobacco: Former Cigarettes 1.5 19.6 1 961 - 06/11/1980 Passive Smoke Exposure: Past Smokeless Tobacco: Never Alcohol Use Standard Drinks/Week Comments Yes 0 (1 standard drink = 0.6 oz pur e alcohol) rare - maybe 1 beer/month [facility] Utilities Answer Date Recorded In the past 12 months has [employer], gas, oil, or water [email or web address] threatened to shut off services in your [...] often do you attend chur ch or gnosticist services? Never 09/05/2024 Do you belong to any clubs o r organizations such as lutheran groups, unions, fraternal or athletic groups, or [...] any time in the past 12 [facility], were you homeless or living in a nursing home (including now)? No 09/05/2024 Personal Safety Answer Date Recorded Have you ever been in or are you currently in a harmful physical or emotional relationship or is someone making you feel afraid or unsafe? 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 Gender Identity Not on file Sexual Orientation Not on file documented as of this encounter OR Notes * Anesthesia Postprocedure Evaluation - Mehul Rodriguez MD - 09/04/2024 4:29 PM CDT Patient: Abiel Fink Procedure Summary Date: 09/04/24 [place] / [place] [facility] Anesthesia Start: 1314 Anesthesia Stop: 1503 Procedure: LAPAROSCOPIC CHOLECYSTECTOMY (Abdomen) Diagnosis: (pain) Surgeons: Praveen Garduno MD Responsible Provider: Gorge Jones MD Anesthesia Type: general ASA Status: 4 - Emergent Anesthesia Type: general Last vitals BP 150/78 (BP Location: Right arm, Patient Position: Lying) Pulse 83 Temp 36.3 ??C (97.3 ??F) (Temporal) Resp 18 SpO2 99% Anesthesia Post Evaluation Patient location during evaluation: PACU Patient participation: complete - patient participated Level of consciousness: follows simple commands and fully awake Pain management: adequate Airway patency: adequate Cardiovascular status: acceptable and hemodynamically stable Respiratory status: acceptable Hydration status: acceptable Pt is: normothermic Nausea/Vomiting status: none No notable events documented. * Anesthesia Procedure Notes - Myesha Amador CRNA - 09/04/2024 1:45 PM CDTAssociated Order(s): Airway Airway Patient location: OR Urgency: elective Indications for airway management: anesthesia Difficult airway: no Staff: Placed by: COMMERCIAL GREEN BUILDING ARCHITECT: Myesha Amador CRNA Emergent airway documentation: Risks [...] prior to masking. Lips/dentition unchanged from preop. * Anesthesia Procedure Notes - Myesha Amador CRNA - 09/04/2024 1:27 PM CDTAssociated Order(s): Peripheral IV Catheter Peripheral IV Catheter Patient location: OR End time: 09/04/2024 1:27 PM Staff: Placed by: Anesthesiologist: Gorge Jones MD Preprocedure prep: Prep solution: chlorhexadine PPE: provider hat/mask and gloves PIV line: Laterality: left Site: forearm Catheter size: 18 g Technique: direct visualization Procedure details: good blood return and occlusive dressing applied Number of attempts: 1 Assessment: Events: patient tolerated procedure well with no complications * Anesthesia Preprocedure Evaluation - Gorge Jones MD - 09/03/2024 8:32 PM CDT Images from the original note were not included. Anesthesia Evaluation Abiel Fink is a 74 y.o. male LAPAROSCOPIC CHOLECYSTECTOMY (Abdomen) * No Diagnosis Codes entered * HISTORY HPI Pt with acute cholecystitis presenting for Lap meena. 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 ?? No signs of ACS, okay to hold aspirin and Plavix given need for urgent surgery, would resume as soon as possible thereafter ?? Okay to proceed with surgery or procedure without any other cardiac testing ?? Repeat EKG and enzymes the patient develops chest pain ?? Continue plan for outpatient cardiac rehab once discharge Care plan discussed with the patient and hospital medicine service Sloan Yanez MD 09/02/2024 8:18 AM Past Medical History Information [...] cholecystitis 09/01/2024 DM2 (diabetes mellitus, type 2) ([facility]) 08/06/2024 Coronary artery disease with history of myocardial infarction without history of CABG 07/24/2024 Coronary artery disease due to calcified coronary lesion 07/24/2024 CAD, multiple vessel 07/05/2024 Bradycardia 07/05/2024 Complete heart block (CMS/HCC) ([facility]) 07/05/2024 Junctional escape rhythm 07/05/2024 Senile ectropion [...] Status: Pharmacy Complete Set By: Lanie Hathaway [facility] at 09/01/2024 7:02 PM Taking? Last Dose [...] 20 mg capsule -- -- -- Nasir Nagel MD pregabalin (LYRICA) 100 mg capsule -- 08/11/24 02/07/25 Johnathan Mckee MD Take 1 capsule (100 mg total) by mouth 2 (two) times a day Current Facility-Administered Medications: acetaminophen (TYLENOL) tablet 650 mg, 650 mg, oral, Q6H PRN albuterol HFA (PROVENTIL HFA,VENTOLIN HFA,PROAIR HFA) 90 mcg/actuation inhaler 2 puff, 2 puff, inhalation, Q6H PRN (RT), 2 puff at 09/03/242024 [Held by Provider] aspirin enteric coated tablet 81 mg, 81 mg, oral, Daily atorvastatin (LIPITOR) tablet 80 mg, 80 mg, oral, Daily, 80 mg at 09/03/24818 bisacodyl EC (DULCOLAX EC) tablet 10 mg, 10 mg, oral, Daily PRN OR bisacodyL (DULCOLAX) suppository 10 mg, 10 mg, rectal, Daily PRN bumetanide (BUMEX) tablet 0.5 mg, 0.5 mg, oral, Daily, 0.5 mg at 09/03/24818 Carrier Fluids for Secondary Infusion - 0.9% Sodium Chloride, 30 mL, intravenous, PRN Carrier Fluids for Secondary Infusion - 0.9% Sodium Chloride, 30 mL, intravenous, PRN carvediloL (COREG) tablet 3.125 mg, 3.125 mg, oral, BID with meals (bkfst, dinner), 3.125 mg at 09/03/24 173 [Held by Provider] DULoxetine DR (CYMBALTA) extended release capsule 60 mg, 60 mg, oral, QAM [Held by Provider] heparin 5,000 unit/mL injection 5,000 Units, 5,000 Units, subcutaneous, Q8H HILDA,5,000 Units at 09/03/24 1401 HYDROcodone-acetaminophen (NORCO) 5-325 mg per tablet 1 tablet, 1 tablet, oral, Q4H PRN, 1 tablet at 09/03/24 0819 HYDROmorphone (PF) (DILAUDID) injection 0.2 mg, 0.2 mg, intravenous, Q6H PRN, 0.2 mg at 09/02/24 0530 isosorbide mononitrate ER (IMDUR) extended release tablet 15 mg, 15 mg, oral, Daily, 15 mg at 09/03/24 08 Lactated Ringer's (LR) infusion, 75 mL/hr, intravenous, Continuous, Last Rate: 75 mL/hr at 230, 75 mL/hr at 09/03/24 1230 ondansetron ODT (ZOFRAN-ODT) disintegrating tablet 4 mg, 4 mg, oral, Q6H PRN OR ondansetron (ZOFRAN) injection 4 mg, 4 mg, intravenous, Q6H PRN pantoprazole DR (PROTONIX) extended release tablet 40 mg, 40 mg, oral, Daily, 40 mg at 09/03/24818 piperacillin-tazobactam (ZOSYN) 3.375 g in sodium chloride 0.9% 100 mL IVPB, 3.375 g, intravenous, Q6H HILDA, Last Rate: 200 mL/hr at 09/03/24 182, 3.375 g at 09/03/24 182 polyethylene glycol (MIRALAX) packet 17 g, 17 g, oral, Daily PRN pregabalin (LYRICA) capsule 100 mg, 100 mg, oral, BID, 100 mg at 09/03/242011 sodium chloride 0.9% flush 0.5-20 mL, 0.5-20 mL, intra-catheter, Q8H HILDA, 10 mL at 09/03/24 1402 sodium chloride 0.9% flush 0.5-20 mL, 0.5-20 mL, intra-catheter, PRN sodium chloride 0.9% flush 0.5-20 mL, 0.5-20 mL, intra-catheter, Q8H HILDA, 10 mL at 09/02/24 1323 sodium chloride 0.9% flush 0.5-20 mL, 0.5-20 mL, intra-catheter, PRN, 10 mL at 09/03/24 0138 sodium chloride 0.9% infusion, 75 mL/hr, intravenous, Continuous, Last Rate: 75 mL/hr at 09/03/24 08, 75 mL/hr at 09/03/24824 Social History Tobacco Use Smoking Status Former [...] Neg Hx Pseudochol deficiency Neg Hx Vitals: 09/03/24175109/03/24201709/03/242024 BP: 160/64 109/69 Pulse: 81 81 Resp: 18 18 Temp: 37 ??C (98.6 ??F) 37 ??C (98.6 ??F) SpO2: 98% 98% 98% PT: No results found for requested labs within last 30 days. INR: No results found for requested labs within last 30 days. APTT: No results found for requested labs within last 30 days. Hgb A1C: No results found for requested labs within last 30 days. CBC RBC: 09/03/2024: 3.51 M/cumm (L) RDW: No results found for requested labs within last 30 days. MCHC: 09/03/2024: 28.7 g/dL (L) MCH: 09/03/2024: 23.4 pg (L) MCV: 09/03/2024: 81.5 fL Hct: 09/03/2024: 28.6 % (L) Hgb: 09/03/2024: 8.2 g/dL (L) WBC: 09/03/2024: 5.2 K/cumm MPV: 09/03/2024: 9.6 fL Platelets: 09/03/2024: 173 K/cumm RDW CV: 09/03/2024: 16.8 % (H) RDW Sd: 09/03/2024: 49.4 fL (H) BMP Glucose: 09/03/2024: 92 mg/dL Calcium: 09/03/2024: 7.9 mg/dL (L) Sodium: 09/03/2024: 139 mmol/L Potassium: 09/03/2024: 3.5 mmol/L CO2: 09/03/2024: 21 mmol/L (L) Chloride: 09/03/2024: 107 mmol/L BUN: 09/03/2024: 13 mg/dL Creatinine: 09/03/2024: 0.77 mg/dL (L) DOS Physical Exam Medical history, medications, and allergies reviewed. Attestation: This PAT evaluation 09/04/2024. Airway Exam: Mallampati: II Cervical ROM: FROM TM distance: 3.5 Cardiovascular Exam: Rate: regular Rhythm: regular Pulmonary Exam: (Non-labored breathing) EENT Exam: trachea midline Dental Exam: Edentulous Anesthesia Plan ASA 4- emergent My patient is approved for the Anesthesia Controlled Medication protocol when under care of a COMMERCIAL GREEN BUILDING ARCHITECT Planned anesthesia: General Team communication plan: oral ET tube Induction: Induction: intravenous. Postoperative Plan: Postoperative administration opioids intended. No postoperative mechanical ventilation intended. Patient's planned disposition post procedure is Floor. Informed Consent: Discussed plan with COMMERCIAL GREEN BUILDING ARCHITECT. Anesthesia plan and risks discussed with patient. Plan and Consent Comments: Type and cross 1 unit PRBC Consent and Attending signature: I and/or my [...] on file documented as of this encounter Procedures Procedure Name Priority Date/Time Associated Diagnosis Comments ID AN PROCEDURE PLACEHOLDER Routine 09/04/2024 1:45 PM CDT ID AN ELECTIVE ENDOTRACHEAL AIRWAY Routine 09/04/2024 1:45 PM CDT ID AN PROCEDURE PLACEHOLDER Routine 09/04/2024 1:27 PM CDT documented in this encounter Results * ID AN ELECTIVE ENDOTRACHEAL AIRWAY, ID AN PROCEDURE PLACEHOLDER (09/04/2024 1:45 PM CDT) Myesha Benson CRNA - 09/04/2024 1:45 PM CDT Myesha Amador CRNA ? 09/04/2024 ??1:45 PM Airway Patient location: OR Urgency: elective Indications for airway management: anesthesia Difficult airway: no Staff: Placed by: COMMERCIAL GREEN BUILDING ARCHITECT: Myesha Amador CRNA Emergent airway documentation: Risks [...] Jones MD ANESTHESIA ORDERABLES Final Result * ID AN PROCEDURE PLACEHOLDER (09/04/2024 1:27 PM CDT) Myesha Benson CRNA - 09/04/2024 1:27 PM CDT Myesha [...] Gorge Jones MD ANESTHESIA ORDERABLES Final Result documented in this encounter Visit Diagnoses Not on filedocumented in this encounter Administered Medications Inactive Administered Medications - up to 3 most recent administrations Medication Order MAR Action Action Date Dose Rate Site dexAMETHasone (DECADRON) 4 mg/mL injection intravenous, Administer over 2 Minutes, As needed, Starting on Wed09/04/24 at 1325, Anesthesia Intra-op Given 09/04/2024 1:25 PM CDT 4 mg etomidate (AMIDATE) injection intravenous, Administer over 1 Minutes, As needed, Starting on Wed09/04/24 at 1323, Anesthesia Intra-op Given 09/04/2024 1:23 PM CDT 12 mg fentaNYL (SUBLIMAZE) preservative free injection intravenous, As needed, Starting on Wed09/04/24 at 1318, Anesthesia Intra-op Given 09/04/2024 2:30 PM CDT 50 mcg Given 09/04/2024 1:18 PM CDT 50 mcg Lactated Ringer's (LR) infusion 30 mL/hr, intravenous, Continuous, Starting on Wed09/04/24 at 0030 Rate/Dose Verify 09/04/2024 1:14 PM CDT 30 mL/hr New Bag 09/04/2024 12:02 AM CDT 30 mL/hr 30 mL/hr lidocaine (cardiac) (XYLOCAINE) preservative free injection intravenous, As needed, Starting on Wed09/04/24 at 1323, Anesthesia Intra-op, Indications: Ventricular ArrhythmiasIndications:V entricular Arrhythmias Given 09/04/2024 1:23 PM CDT 5 mL norepinephrine (LEVOPHED) injection intravenous, As needed, Starting on Wed09/04/24 at 1338, Anesthesia Intra-op Given 09/04/2024 1:38 PM CDT 8 mcg norepinephrine in dextrose 5% (LEVOPHED) 8,000 mcg/250 mL (32 mcg/mL) infusion (premix) intravenous, Continuous PRN, Starting on Wed09/04/24 at 1323, Anesthesia Intra-op Rate/Dose Change 09/04/2024 2:30 PM CDT 0.01 mcg/kg/min 1.965 mL/hr Rate/Dose Change 09/04/2024 1:39 PM CDT 0.03 mcg/kg/min 5. 895 mL/hr New Bag 09/04/2024 1:23 PM CDT 0.02 mcg/kg/min 3.93 mL/ hr ondansetron (ZOFRAN) injection intravenous, Administer over 2 Minutes, As needed, Starting on Wed09/04/24 at 1430, Anesthesia Intra-op Given 09/04/2024 2:30 PM CDT 4 mg piperacillin-tazobactam (ZOSYN) 3.375 g in sodium [...] 6:30 AM CDT 3.375 g 200 mL/hr rocuronium (ZEMURON) injection intravenous, As needed, Starting on Wed09/04/24 at 1340, Anesthesia Intra-op Given 09/04/2024 1:40 PM CDT 30 mg Given 09/04/2024 1:23 PM CDT 50 mg sugammadex (BRIDION) 100 mg/mL intravenous solution intravenous, As needed, Starting on Wed09/04/24 at 1434, Anesthesia Intra-op Given 09/04/2024 2:34 PM CDT 200 mg Transfuse RBC Timed New Bag 09/04/2024 1:42 PM CDT documented in this encounter Care Teams Rubber Compounder Supervisor Relationship Specialty Start Date End Date Juan Retana MD [address] [facility] [address] [place] [address] PCP - General Internal Medicine [facility] [address] [place] [address] Referring Physician Cardiology 07/05/24 Johnathan Mckee MD [address] [facility] [id number] [place] [address] Consulting Physician General Surgery 08/11/24 documented as of this encounter
--- OUTSIDE RECORDS SUMMARY | 2024-11-17 04:27 | XMS_ITS | Encounter Summary ---
Author Organization [facility] Healthcare Address [address] [place] [address] Care Team Providers Care Hub Bander Name Role Phone Juan Retana MD Primary Care Provider [facility], Alverto Gutierrez Unavailable Reason for Visit * Auth/Cert (Routine) Specialty Diagnoses / Procedures Referred By Contac t Referred To Contact Diagnoses CAD, multiple vessel CAD, 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] Procedures HC CABG, ART-VEIN, TWO HI NDSC SURG W/VIDEO-ASSISTED HARVEST VEIN CABG CORONARY ARTERY BYPASS GRAFT WITH PUMP ENDOSCOPIC VESSEL HARVEST - BURGESS VEIN Referral ID Status Reason Start Date Expiration Date Visits Re quested Visits Authorized [id number] 1 1 Encounter Details Date Type Department Care Team (Late st Contact Info) Description 08/04/2024 7:37 AM CDT Anesthesia Event [facility] Electrophysiology Lab [address] [place] [address] Daniel Jordan MD [address] [place] [address] Anesthesia Record Procedure Summary Procedure Name Responsible Anesthesiologist Anesthesia Start Time Anesthesia Stop Time INSERT/REPLACE IMPLANTABLE CARDIOVERTER-DEFIBRIL LATOR (ICD) DUAL CHAMBER SYSTEM 07741 Daniel Jordan MD 08/04/24 0737 08/04/24 1111 Events Date Time Event Comment 08/04/2024 0737 An Start 0740 An Start Data 0750 Start Supplemental O2 0754 An Induction The patient was reevaluated immediately before moderate or deep sedation use and before anesthesia induction. 0800 Anesthesia Ready 0808 Quick Note NIBP artifact a fter tightly tucking forearms, arms loosened, repeat BP 107/88 0832 Local injected by surgeon 1023 Quick Note Testing pacemak er settings 1036 An Data Art NIBP artifact d /t patient movement. Repeat BP 103/67 1057 an stop data 1111 Handoff to RN I completed my handoff [...] Patient disposition at the time of handoff: ICU 1111 An Stop Meds Name Total midazolam PF 2 mg propofol 10 mg propofol 340.08 mg phenylephrine 100 mcg/mL 200 mcg phenylephrine infusion (100 mcg/mL) 11.0 4 mg vancomycin 1500 mg/515 mL in sodium chloride 0.9% (premix) 1,500 mg Cannot be calculated ketamine 10 mg/mL 30 mg sodium chloride 0.9% infusion 110.5 mL * Agents Name O2% N2O O2 * Blood No blood administrations on file. Lines, Drains, and Airways Type Details Placement Removal RETIRED Surgical Site 06/28/20; 1525; Le ft; Eye; 10/10/24 (Retired LDA, Removed/Completed by [employer] with LDA Utility); 1213 (Retired LDA, Removed/Completed by [employer] with LDA Utility); Other (Comment) 06/28/20 1525 by Celina Eagle RN 10/10/24 1213 by Discharge Provider, Automatic RETIRED Surgical Site 06/28/20; 1525; Ri ght; Eye; 10/10/24 (Retired LDA, Removed/Completed by [employer] with LDA Utility); 1213 (Retired LDA, Removed/Completed by [employer] with LDA Utility); Other (Comment) 06/28/20 1525 by Celina Eagle RN 10/10/24 1213 by Discharge Provider, Automatic Peripheral IV Placement Date: 07/24/24; Placement Time: 0650; Catheter Size: 18 G; Orientation: Posterior, Right; Location: Hand; Removal Date: 08/11/24; Removal Time: 1146; Removal Reason: Discharge 07/24/24 0650 by Mayi Page RN 08/11/24 1146 by Nedra Ray RN Wound 07/24/24; 0957; Incision; Chest; Anterior, Medial; 09/07/24 07/24/24 0957 by Abebe Avila RN 09/07/24 0000 by Cathi Reyes RN Wound 07/24/24; 0957; Incision; Arm; Left; 09/07/24 07/24/24 0957 by Abebe Avila RN 09/07/24 0000 by Cathi Reyes RN Wound 07/24/24; 0958; Incision; Leg; Right; 09/07/24 07/24/24 0958 by Abebe Avila RN 09/07/24 0000 by Cathi Reyes RN CVC Quadruple Lumen Placement Date: 07/24/24; Placement Time: 1204 (created via procedure documentation); Hand Hygiene: Yes; Line Length(cm): 20; Orientation: Right; Location: Internal jugular; Placement Verification: Ultrasound; Removal Date: 08/04/24; Removal Time: 0807/24/24 1204 by Cristina Phipps MD 08/04/24 0809 by Rosie Gonzáles RN Pacer Wires 07/24/24; 1600; OR; 08/05/24; 1420; Other (Comment) (removed by JUSTYN See) 07/24/24 1600 by Bonita Ennis RN 08/05/24 1420 by Leanna Baltazar Wound 07/24/24; 1600; Mediastinal; CT and EPW; 09/07/24 07/24/24 1600 by Bonita Ennis RN 09/07/24 0000 by Cathi Reyes RN Urethral Catheter Placement Date: 08/03/24; Placement Time: 0456; Removal Date: 08/05/24; Removal Time: 1507; Removal Reason: Therapy complete, Per order 08/03/24 0456 by Jhon Humphrey RN 08/05/24 1507 by Leanna Baltazar Peripheral IV Placement Date: 08/04/24; Placement Time: 414; Catheter Size: 20 G; Orientation: Anterior, Distal, Right; Location: Brachial; Removal Date: 08/04/24; Removal Time: 1400 08/04/24 0415 by Jhon Humphrey RN 08/04/24 1400 by Leanna Baltazar Peripheral IV Placement Date: 08/04/24; Placement Time: 075; Catheter Size: 22 G; Orientation: Left; Location: Hand; Site Prep: Chlorhexidine; Technique: Anatomical landmarks; Inserted by: Zi Stacy CRNA; Insertion Attempts: 1; Removal Date: 08/11/24; Removal Time: 1146; Removal Reason: Discharge 08/04/24 075 by Laly Stacy CRNA 08/11/24 1146 by Nedra Ray RN documented in this encounter Social History [...] on file 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 EP LAB 07 / [facility] EP LAB Anesthesia Start: 0737 Anesthesia Stop: 1111 Procedures: INSERT/REPLACE IMPLANTABLE CARDIOVERTER-DEFIBRILLATOR (ICD) DUAL CHAMBER SYSTEM 46613 INSERT LV LEAD W PACEMAKER (PPM) OR IMPLANTABLE CARDIOVERTER-DEFIBRILLATOR (ICD) PLACEMENT (+) [id number] Diagnosis: Bradycardia Complete heart block (CMS/HCC) (HCC) Junctional escape rhythm (Bradycardia [R00.1]) (Complete heart block (CMS/HCC) (HCC) [I44.2]) (Junctional escape rhythm [I49.49]) Providers: Lucy Meyer MD Responsible Provider: Daniel Jordan MD Anesthesia Type: MAC ASA Status: 4 Anesthesia Type: MAC Last vitals BP 103/57 Pulse 91 Temp 37 ??C (98.6 ??F) Resp 9 SpO2 92% Anesthesia Post Evaluation Patient location during evaluation: PACU Patient participation: complete - patient participated Level of consciousness: fully awake Pain score: 0 Pain management: adequate Airway patency: adequate Evidence of recall: no Cardiovascular status: acceptable Respiratory status: acceptable Hydration status: acceptable Pt is: normothermic Nausea/Vomiting status: none No notable events documented. Cosigned by Daniel Jordan MD at 08/04/2024 12:08 PM CDT * Anesthesia Preprocedure Evaluation - Daniel Jordan MD - 08/04/2024 4:37 AM CDT Images from the original note were not included. Anesthesia Evaluation Abiel Fink is a 74 y.o. male INSERT/REPLACE IMPLANTABLE CARDIOVERTER-DEFIBRILLATOR (ICD) DUAL CHAMBER SYSTEM 01680 INSERT LV LEAD W PACEMAKER (PPM) OR IMPLANTABLE CARDIOVERTER-DEFIBRILLATOR (ICD) PLACEMENT (+) [id number] Pre-Op Diagnosis Codes: * Bradycardia [R00.1] * Complete heart block (CMS/HCC) (HCC) [I44.2] * Junctional escape rhythm [I49.49] Patient Active Problem List Diagnosis Date Noted Coronary arteriosclerosis 07/24/2024 Coronary artery disease due to calcified coronary lesion 07/24/2024 CAD, multiple vessel 07/05/2024 Bradycardia 07/05/2024 Complete heart block (CMS/HCC) (HCC) 07/05/2024 Junctional escape rhythm 07/05/2024 Senile ectropion of both lower eyelids 06/11/2020 Lesion of eyelid of both eyes 06/11/2020 Past Medical History: Diagnosis Date Asthma Diabetes mellitus (HCC) GERD (gastroesophageal reflux disease) HH (hiatus hernia) Hypertension Sleep apnea pt uses CPAP machine nightly Past Surgical History: Procedure Laterality Date KIDNEY SURGERY 196 MULTIPLE TOOTH EXTRACTIONS TOTAL KNEE ARTHROPLASTY Left 2017 TOTAL KNEE ARTHROPLASTY Right 2019 Allergies Allergen Reactions Tramadol Itching Taking? Last Dose Start Date End Date Provider albuterol HFA (PROVENTIL HFA,VENTOLIN HFA,PROAIR HFA) 90 mcg/actuation inhaler Past Week -- -- Nasir Nagel MD ammonium lactate (AMLACTIN) 12 % cream Unknown 02/11/24 -- Nasir Nagel MD aspirin 81 mg enteric coated tablet 07/24/2024 -- -- Nasir Nagel MD atorvastatin (LIPITOR) 40 mg tablet 07/22/2024 06/07/24 -- Nasir Nagel MD bumetanide (BUMEX) 1 mg tablet Past Week 06/07/24 -- Nasir aNgel MD carboxymethylcell-glycerin,PF, 0.5-0.9 % drops Past Month 05/12/24 -- Nasir Nagel MD carvediloL (COREG) 6.25 mg tablet 07/24/2024 -- -- Nasir Nagel MD chlorhexidine (PERIDEX) 0.12 % solution () 07/24/2024 07/19/24 07/24/24 Johnathan Mckee MD Apply 15 mL to the mouth or throat 3 (three) times a day for 5 days Swish and rinse for at least 30seconds . Do not rinse or drink for 1-2 hours after use. DULoxetine DR (CYMBALTA) 60 mg capsule 07/23/2024 -- -- Nasir Nagel MD ibuprofen (ADVIL,MOTRIN) 800 mg tablet More than a month 07/04/24 -- Nasir Nagel MD insulin aspart U-100 (NovoLOG) 100 unit/mL (3 mL) insulin pen 07/23/2024 -- -- Nasir Nagel MD insulin glargine (LANTUS, SEMGLEE) 100 unit/mL subcutaneous syringe 07/24/2024 -- -- Nasir Nagel MD metFORMIN (GLUCOPHAGE) 1,000 mg tablet 07/17/2024 -- -- Nasir Nagel MD MULTIVITAMIN ORAL 07/17/2024 -- -- Nasir Nagel MD mupirocin (BACTROBAN) 2 % ointment () 07/23/2024 07/19/24 07/24/24 Johnathan Mckee MD Apply to each nostril 2 (two) times a day for 5 days Patient taking differently: Apply 1 Application to each nostril 2 (two) times a day naproxen (ALEVE) 220 mg tablet 07/16/2024 07/02/23 -- Nasir Nagel MD omeprazole (PriLOSEC) 20 mg capsule 07/24/2024 -- -- Nasir Nagel MD pregabalin (LYRICA) 200 mg capsule 07/24/2024 -- -- Nasir Nagel MD sacubitriL-valsartan (ENTRESTO) 24-26 mg tablet 07/24/2024 -- -- Nasir Nagel MD semaglutide (OZEMPIC) 1 mg/dose (4 mg/3 mL) pen injector injection 07/17/2024 05/01/24 -- Nasir Nagel MD Current Facility-Administered Medications: aspirin chewable tablet 81 mg, 81 mg, oral, Daily, 81 mg at 08/03/24 08 atorvastatin (LIPITOR) tablet 40 mg, 40 mg, oral, Daily, 40 mg at 08/03/24 0838 clopidogreL (PLAVIX) tablet 75 mg, 75 mg, oral, Daily, 75 mg at 08/03/24 08 dextrose gel in packet 15 g, 15 g, oral, Q15 Min PRN OR dextrose (D10W) 10% bolus 250 mL, 250 mL, intravenous, Q[address] (CYMBALTA) extended release capsule 60 mg, 60 mg, oral, Nightly, 60 mg at 08/03/241999 glucagon injection 1 mg, 1 mg, intramuscular, Q30 Min PRN [Held by Provider] heparin 5,000 unit/mL injection 5,000 Units, 5,000 Units, subcutaneous, Q8H HILDA,5,000 Units at 08/03/242032 hydrOXYzine (ATARAX) tablet 25 mg, 25 mg, oral, QID PRN, 25 mg at 07/29/242034 insulin glargine (LANTUS, SEMGLEE) 100 unit/mL injection 40 Units, 40 Units, subcutaneous, QAM, 40 Units at 08/03/24837 insulin lispro (HumaLOG, ADMELOG) 100 unit/mL injection 0-10 Units, 0-10 Units, subcutaneous, TID with meals, 2 Units at 08/03/241225 insulin lispro (HumaLOG, ADMELOG) 100 unit/mL injection 0-5 Units, 0-5 Units, subcutaneous, Nightly, 1 Units at 07/31/242025 isosorbide mononitrate ER (IMDUR) extended release tablet 15 mg, 15 mg, oral, Daily, 15 mg at 08/03/24836 Lactated Ringer's (LR) infusion, 10 mL/hr, intravenous, Continuous, Stopped at 07/30/24212 methocarbamoL (ROBAXIN) tablet 500 mg, 500 mg, oral, TID, 500 mg at 08/03/241958 ondansetron (ZOFRAN) injection 4 mg, 4 mg, intravenous, Q6H PRN oxyCODONE (ROXICODONE) tablet 5 mg, 5 mg, oral, Q4H PRN, 5 mg at 08/03/241958 pantoprazole DR (PROTONIX) extended release tablet 40 mg, 40 mg, oral, Daily, 40 mg at 08/03/24837 potassium chloride 20 mEq/50 mL in sterile water (premix) 20 mEq, 20 mEq, intravenous, Q1H PRN, Last Rate: 25 mL/hr at 08/03/249, 20 mEq at 08/03/24328 QUEtiapine (SEROquel) tablet 100 mg, 100 mg, oral, Nightly, 100 mg at 08/03/241999 senna (SENOKOT) tablet 1 tablet, 1 tablet, oral, Daily PRN OR [DISCONTINUED] senna 1.76 mg/mL syrup 8.8 mg, 8.8 mg, feeding tube, BID sodium chloride 0.9% solution, 3-12 mL/hr, intra-catheter, Continuous, Last Rate: 3 mL/hr at 08/04/24 0400, 3 mL/hr at 08/04/24 0400 Social History Tobacco Use Smoking Status Former Current packs/day: 0.00 Average packs/day: 1.5 packs/day for 19.6 years (29.4 ttl pk-yrs) Types: Cigarettes Start date: 1960 Quit date: 06/11/1980 Years since quittin.1 Passive exposure: Past Smokeless Tobacco Never Alcohol [...] Neg Hx Pseudochol deficiency Neg Hx Vitals: 08/04/24 0300 08/04/24 0400 08/04/24 0413 BP: 93/49 Pulse: 103 104 Resp: 16 15 Temp: 36.6 ??C (97.8 ??F) SpO2: 100% 99% PT: 07/24/2024: 15.7 sec (H) INR: 07/24/2024: 1.44 (H) APTT: 07/24/2024: 34 sec Hgb A1C: No results found for requested labs within last 30 days. CBC RBC: 08/03/2024: 2.88 M/cumm (L) RDW: No results found for requested labs within last 30 days. MCHC: 08/03/2024: 32.5 g/dL MCH: 08/03/2024: 26.7 pg (L) MCV: 08/03/2024: 82.3 fL Hct: 08/04/2024: 25.0 % (L) Hgb: 08/04/2024: 8.3 g/dL (L) WBC: 08/03/2024: 12.3 K/cumm (H) MPV: 08/03/2024: 9.8 fL Platelets: 08/03/2024: 189 K/cumm RDW CV: 08/03/2024: 16.4 % (H) RDW Sd: 08/03/2024: 49.1 fL (H) BMP Glucose: 08/04/2024: 106 mg/dL Calcium: 08/03/2024: 8.8 mg/dL Sodium: 08/03/2024: 137 mmol/L Potassium: 08/03/2024: 4.3 mmol/L CO2: 08/03/2024: 24 mmol/L Chloride: 08/03/2024: 105 mmol/L BUN: 08/03/2024: 34 mg/dL (H) Creatinine: 08/03/2024: 1.15 mg/dL DOS Physical Exam Medical history, medications, and allergies reviewed. Attestation: This PAT evaluation 08/04/2024. Airway Exam: Mallampati: II Cervical ROM: FROM Cardiovascular Exam: Rate: regular Rhythm: regular Pulmonary Exam: LCTA, bilat Dental Exam: Upper dentures and lower dentures Current state: Patient's current state is cooperative and interactive. Additional comments: Abbreviated Hospital Course: 07/24: CABG x 3 (BURGESS to LAD, left radial to OM, SVG to PDA and sternal plating. Patient did have significant radial artery spasm, treated with papaverine and nitroglycerin. Prior to the case, patientwith known RV dysfunction. During EMILE, RV function improved with MAPs in the 80s, levo continued. OR totals: 1L IVF, 1u PRBC, 1u FFP, 1u PLT. A/V wires placed. MCT x 2 and b/l chest tubes. 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 07/25: Inhaled Veletri added for worsening RV dysfunction. 07/26: Unable to wean Veletri d/t increasing PA pressures, Bumex gtt 07/27: Veletri wean, epi at 0.05 07/28: Veletri weaned off 07/29: Epi 0.02, chest/med tubes removed 07/29: Epi wean, bumex gtt dc'd, diamox x3 07/30: Epi off 07/31: Diamox x3 07/31: EP c/s, awaiting PPM Anesthesia Plan ASA 4 My patient is approved for the Anesthesia Controlled Medication protocol when under care of a [employer] Planned anesthesia: MAC Induction: Induction: intravenous. Postoperative Plan: Postoperative administration opioids intended. No postoperative mechanical ventilation intended. Patient's planned disposition post procedure is ICU. No trial extubation planned. Informed Consent: Discussed plan with [employer] O[employer]ER. Anesthesia plan and risks discussed with patient. Consent and Attending signature: I and/or my [...] MAR Action Action Date Dose Rate Site ketamine (KETALAR) injection intravenous, Administer over 2 Minutes, As needed, Starting on Wed08/04/24 at 0929, Anesthesia Intra-op Given 08/04/2024 9:59 AM CDT 10 mg Given 08/04/2024 9:29 AM CDT 10 mg Given 08/04/2024 7:54 AM CDT 10 mg midazolam (VERSED) 2 mg/2 mL preservative free injection intravenous, Administer over 2 Minutes, As needed, Starting on Wed08/04/24 at 0754, Anesthesia Intra-op Given 08/04/2024 9:52 AM CDT 0.5 mg Given 08/04/2024 9:46 AM CDT 0.5 mg Given 08/04/2024 7:54 AM CDT 0.5 mg phenylephrine (GER-SYNEPHRINE) 1 mg/10 mL (100 mcg/mL) in sodium chloride 0.9% (premix) intravenous, As needed, Starting on Wed08/04/24 at 0808, Anesthesia Intra-op Given 08/04/2024 8:08 AM CDT 200 mcg phenylephrine (GER-SYNEPHRINE) 5 mg/50 mL (100 mcg/mL) in sodium chloride 0.9% (premix) intravenous, Continuous PRN, Starting on Wed08/04/24 at 0754, Anesthesia Intra-op Rate/Dose Change 08/04/2024 11:02 AM CDT 0.2 mcg/kg/min 11.196 mL/hr Rate/Dose Change 08/04/2024 10:52 AM CDT 0.3 mcg/kg/min 16 .794 mL/hr Rate/Dose Change 08/04/2024 10:42 AM CDT 0.2 mcg/kg/min 11 .196 mL/hr propofoL (DIPRIVAN) 10 mg/mL IV intravenous, Continuous PRN, Starting on Wed08/04/24 at 0754, Anesthesia Intra-op Rate/Dose Change 08/04/2024 9:56 AM CDT 25 mcg/kg/min 13.995 mL/hr Rate/Dose Change 08/04/2024 9:53 AM CDT 20 mcg/kg/min 11.1 96 mL/hr Rate/Dose Change 08/04/2024 9:10 AM CDT 15 mcg/kg/min 8.39 7 mL/hr propofoL (DIPRIVAN) 10 mg/mL IV intravenous, As needed, Starting on Wed08/04/24 at 1031, Anesthesia Intra-op Given 08/04/2024 10:31 AM CDT 10 mg sodium chloride 0.9% infusion 30 mL/hr, intravenous, Continuous, Starting on Wed08/04/24 at 0815 Rate/Dose Verify 08/04/2024 7:37 AM CDT 30 mL/hr New Bag 08/04/2024 7:30 AM CDT 30 mL/hr 30 mL/hr documented in this encounter Care Teams Hub Bander Relationship Specialty Start Date End Date Juan Retana MD [address] [facility] [address] [place] [address] PCP - General Internal Medicine [facility] [place] [address] Referring Physician Cardiology 07/05/24 documented as of this encounter
--- OUTSIDE RECORDS SUMMARY | 2024-11-17 04:27 | XMS_ITS | Encounter Summary ---
Author Organization [facility] Healthcare Address [address] [place] [address] Care Team Providers Care Javascript Front End Developer Name Role Phone Juan Retana MD Primary Care Provider [phone] [facility], Alverto Gutierrez Unavailable Leonor Quan MD Unavailable [phone] Reason for Referral * Consultation (Routine) - Closed Specialty Diagnoses / Procedures Referred By Su garber Referred To Contact Cardiac Rehabilitation Diagnoses S/P CABG (coronary artery bypass graft) Cindy Pacheco NP [address] [facility] [id number] [place] [address] Phone: tel: fax: [address] [address] Phone: tel: fax: Referral ID Status Reason Start Date Expiration Date V isits Requested Visits Authorized [id number] Closed Specialty Services Required 08/11/2024 09/10/2025 36 36 Question Answer Please select the performing region: [facility] [[id number]] Please select the performing department: [facility] [[id number]] Phase of Care HCI Phase 2 # of visits: 36 Reason for Visit * Auth/Cert (Routine) Specialty Diagnoses / Procedures Referred By Su garber Referred To Contact Diagnoses CAD, multiple vessel CAD, 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] Procedures HC CABG, ART-VEIN, TWO ND NDSC SURG W/VIDEO-ASSISTED HARVEST VEIN CABG CORONARY ARTERY BYPASS GRAFT WITH PUMP ENDOSCOPIC VESSEL HARVEST - BURGESS VEIN Referral ID Status Reason Start Date Expiration Date Visits Re quested Visits Authorized [id number] 1 1 Encounter Details Date Type Department Care Team (Latest Contact Info) Description 07/24/2024 6:02 AM CDT - 08/11/2024 12:53 PM CDT Hospital Encounter [facility] [address] [place] [address] Leonor Quan MD [id number] [place] [address] S/P CABG (coronary artery bypass graft) (Primary Dx); Preoperative testing; Bruising; Coronary artery disease, unspecified vessel or lesion type, unspecified whether angina present, unspecified whether 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 Gender Identity Not on file Sexual Orientation Not on file documented as of this encounter Last Filed Vital Signs Vital Sign Reading Time Taken Comments Blood Pressure 117/59 08/11/2024 11:46 AM CDT Pulse 60 08/11/2024 11:46 AM CDT Temperature 36.4 ??C (97.5 ??F) 08/11/2024 11:46 AM C DT Respiratory Rate 16 08/11/2024 11:46 AM CDT Oxygen Saturation 98% 08/11/2024 11:46 AM CDT Inhaled Oxygen Concentration - - Weight 98.7 kg (217 lb 8 oz) 08/11/2024 5:08 AM CDT Height 177.8 cm (5' 10 ) 07/25/2024 5:00 AM CDT Body Mass Index 31.21 07/25/2024 5:00 AM CDT documented in this encounter Discharge Summaries * Cindy Pacheco, GREEN END MAN - 08/11/2024 11:29 AM CDT Inpatient Discharge Summary BRIEF OVERVIEW Admitting Provider: Transmission Maintenance Supervisor MD Bird Discharge Provider: Leonor Quan MD Primary Care Physician at Discharge: Juan Retana MD [phone] Admission Date: 07/24/2024 Discharge Date: 08/11/2024 Admission Location: [facility] Primary Discharge Diagnosis: CAD - 07/24/24: CABG x 3 (BURGESS to LAD, left radial to OM, SVG to PDA and sternal plating. 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 Secondary Discharge Diagnosis: Active Problems: Coronary artery disease due to calcified coronary lesion Bradycardia Complete heart block (CMS/HCC) (HCC) Junctional escape rhythm DM2 (diabetes mellitus, type 2) ([facility]) Resolved Problems: No resolved hospital problems. DETAILS OF HOSPITAL STAY Presenting Problem/History of Present Illness: 74 y.o. yo male w/ PMHx [...] RCA subtotal occlusion. He was referred to [facility] for surgical management. Hospital Course: Mr. Fink was taken to the operating room on 07/24/24 for CABG x 3 (BURGESS to LAD, left radial to OM, SVG to PDA and sternal plating by Dr. Quan. The patient was taken to the intensive care unit postoperatively in stable condition. CABG x 3 (BURGESS to LAD, left radial to OM, SVG to PDA and sternal plating. Inhaled Veletri was added for worsening RV dysfunction. Unable to wean Veletri d/t increasing PApressures, a Bumex gtt was started and Dobutamine was switched to Epinephrine. Following significant diuresis, Veletri and Epinephrine were successfully weaned. When hemodynamically stable, he was weaned from ventilatory support. ECG monitoring showed a persistent AV block. Electrophysiology was consulted. The rhythm was determined to be complete heart block. He was supported utilizing epicardialpacer wires. 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 Post pacemaker implantation, he was transferred to the stepdown unit in stable condition. The newly implanted device was interrogated and found to be fully functional. Chest tubes and pacing wires were discontinued without difficulty. Aggressive physical therapy and pulmonary toilet wereinitiated. The patient progressed as expected. His diet was advanced as tolerated. His wounds remained clean, dry and intact. Today he is deemed ready for discharge to the [facility] for further rehabilitation. See post op TTE from 08/04/24 below. ADDENDUM: after patient had been discharged, it was brought to my attention that the patient was not on a beta grecia. The facility was called and the pateint was started on coreg 3.125 BID. EP Signed off: Device: Medtronic CRTD Placement Date: 08/04/2024 Implanter: Dr. Meyer Indication: Ischemic cardiomyopathy with complete heart block Patient doing well this morning post procedure. Alert, oriented, and with mild soreness at incisionsite. Currently feels well and does not endorse any dyspnea, palpitations, or chest pain/pressure. Dressings were removed from left anterior chest wall subclavian incision site. Steristrips left in place. Exam: no warmth appreciated; no firmness or hematoma appreciated; incision well approximated with no active drainage; able to palpate device; no fluctuance noted Telemetry: , BiV paced rhythm Interogation: no concerns with appropriate device function CXR: Pending 2 views Patient Instructions [copy into discharge instructions] First 7 days: No showering [keep wound dry] Do NOT cover site For 2 weeks: No driving For 6 weeks: sling at night but use gentle arm use during daytime to prevent frozen shoulder no lifting of the elbow above the shoulder no heavy lifting [10+ pounds] Precautions: notify the office should swelling occur at incision site or any active drainage appear. Patient verbalized understanding of the above and will follow-up with EP. Please send patient out on Keflex 500mg po BID x 7days. Antibiotics While inpatient, continue IV vancomycin 1g daily and send out on Keflex at discharge . Activity Rest today, increase activity tomorrow as tolerated, except as above Do not drink alcoholic beverages, drive or operate hazardous machinery for 24 hours Additional Instructions Red folder given to patient with verbalization of the written instructions. Extra Strength Tylenol may be taken every 6 hours as needed for pain. Notify the physician office at [phone] immediately if you develop abrupt pain or swelling. If you feel there is an urgent matter, call 911 or go to the emergency room. Call the office at [phone] with any routine questions or concerns. If you are unable to reach your doctor please call [facility] marketing information manager at [phone]. He or she will contact the physician on the Electrophysiology service to assist you. Patient verbalized understanding and will follow-up with EP as scheduled. TTE: 08/02/24: LVEF%: 40-50, normal global LV function. RV mild dilation, global function mildly decreased. Normal diastolic function. Mildly improved LV function on dobutamine, valvular function unchanged. Active Issues Requiring Follow-up: Pt was taking Ozempic, Lantus 90 units nightly, Lispro 6 units with dinner and Metformin 1000 BID. He has not had glucoses to support all of the preop meds, will need to resume as needed. Only discharged on SSI. Pt also on Lyrica 200 BID at home, will need to be slowly increased as needed. The prineo dressing to the sternotomy and L forearm can be peeled off in 14 days Operative Procedures Performed: Procedure(s): INSERT/REPLACE IMPLANTABLE CARDIOVERTER-DEFIBRILLATOR (ICD) DUAL CHAMBER SYSTEM 36541 INSERT LV LEAD W PACEMAKER (PPM) OR IMPLANTABLE CARDIOVERTER-DEFIBRILLATOR (ICD) PLACEMENT (+) 68794 Discharge Details Physical Exam at Discharge: Discharge Condition: good Pulse: 67 Resp: 16 BP: 115/72 Temp: 36.7 ??C (98.1 ??F) Weight: 98.7 kg (217 lb 8 oz) Pertinent Exam Findings at Discharge: Physical Exam Vitals reviewed. Constitutional: Appearance: Normal appearance. He is normal weight. HENT: Head: Normocephalic. Nose: Nose normal. Cardiovascular: Rate and Rhythm: Normal rate and regular rhythm. Comments: Paced - 60s Pulmonary: Effort: Pulmonary effort is normal. Breath sounds: Normal breath sounds. Abdominal: General: Bowel sounds are normal. There is no distension. Palpations: Abdomen is soft. Tenderness: There is no abdominal tenderness. Comments: Having nml Bms, eating well Musculoskeletal: Right lower leg: No edema. Left lower leg: No edema. Skin: General: Skin is warm and dry. Comments: Sternum healing well, L radial harvest site healing well Prevena covering incisions Neurological: General: No focal deficit present. Mental Status: He is alert and oriented to person, place, and time. Psychiatric: Mood and Affect: Mood normal. Behavior: Behavior normal. Discharge Disposition: Discharge to home or self care Code Status at Discharge: Full Code Discharge Instructions: Activity Instructions Post-Discharge Activity: No strenuous exercise No strenuous exercise for 4 weeks. Post-Discharge Activity: No water submersion for 6 weeks - including baths, hot tubs, whirlpools, swimming pools Post-Discharge Activity: Do not drive car Do not drive car until cleared by your surgeon. Post-Discharge Activity: May shower daily Diet Instructions Adult Discharge Diet Diet Type: Return to previous diet Instructions for follow-up (appointment date and time): diabetic diet Other Instructions Call surgeon for: Breathing Problems --Difficultly breathing at rest, with activity, or at night. --Increased cough. Call surgeon for: Change in drainage or if drainage starts again when none was present Call surgeon for: Check incision and call provider for the following: --Any redness, swelling, red streaks around incision/drain, or IV sites or change in appearance or abnormal bleeding. Call surgeon for: General Problems Chest pain, heaviness, or tightness Chills/fever over 100.4 degrees F Swelling in ankles, legs, or belly --Sweating, weakness, or fainting. --Persistent nausea or vomiting. --Persistent or increasing pain not resolved with medication. --Burning, pain, or urgency with urination. --Weight gain of more than 2 lbs over 2 days. Discharge instructions Sternotomy incision Activity Restrictions and Care Instructions: * Follow the instructions your physical therapist gave you. * Walk frequently and continue activities as tolerated. * Avoid strenuous exercise. No heavy lifting, pushing, or pulling more than 10 pounds for 4 weeks. * Do NOT drive for 4 weeks or while you are taking narcotic pain medications. * You may shower and let water run over your wound. * Do NOT take tub baths, swim, or sit in a hot tub for 4 weeks. * Keep incision clean and dry. * Do not apply cream or lotion to surgical site. * Take your blood pressure and heart rate each day and record on a log and bring to your next doctor's appointment. * Weigh yourself each day at the same time on the same scale. Call your doctor if you gain more than 2 pounds in 2 days. Call Your Doctor If: * You are having any problems after surgery. * You develop a fever higher than 101.5 degrees F. * You have chills, nausea, vomiting, or diarrhea. * You have shortness of breath or chest discomfort. * Your wound develops redness or drainage. * You gain more than 2 pounds in 2 days. * You have swelling in your lower extremities. * You are not passing gas or are constipated. * Your pain medicine is not working. For All Women: Please wear a surgical bra, sports bra or regular bra after discharge at all times. This will help prevent stress to your sternal incision from the weight of your breast tissue until your incision is healed. Post-Discharge Activity: Lifting Restrictions (Specify) Maximum Weigth to Lift: 10 Pounds Post-Discharge Dressing Care: No dressing needed Dressing Removal: No dressing needed. Special Instructions Please arrive 30 minutes prior to your scheduled visit to have a Chest X-ray completed before seeing your surgeon. Special Instructions - Medication Safety (see comment) Keep a list of all medications you take including medications you can purchase without a prescription, like vitamins and herbal products. Carry this list with you at all times in case of emergency. Give the list to your primary care doctor. Update the list whenever a medication is discontinued, a new medication is added, or a medication dose has changed. Recent Lab Results: Recent Labs Lab Units 08/11/2480908/10/24223208/10/24200208/10/[id number]/09/[id number]/[id number] SODIUM mmol/L -- 135 -- -- 135 -- 133* POTASSIUM PLASMA mmol/L -- 4.6 -- -- 4.3 -- 3.5 CHLORIDE mmol/L -- 100 -- -- 101 -- 99 CO2 mmol/L -- 24 -- -- 24 -- 24 BUN SERUM mg/dL -- 19 -- -- 23 -- 26* CREATININE mg/dL -- 0.83 -- -- 0.91 -- 0.97 GLUCOSE mg/dL -- 97 -- -- 86 -- 138 POC GLUCOSE MONITOR mg/dL 100 -- 105 < > -- < > -- CALCIUM mg/dL -- 8.4* -- -- 8.3* -- 8.0* < > = values in this interval not displayed. Recent Labs Lab Units 08/10/24223208/09/24215008/08/242201 WBC K/cumm 5.9 6.5 8.0 HEMOGLOBIN g/dL 8.4* 8.5* 8.4* HEMATOCRIT % 26.9* 27.7* 26.8* PLATELETS K/cumm 187 207 206 Prior to Admission Medications: Medications Prior to Admission Medication Sig Dispense Refill Last Dose albuterol HFA (PROVENTIL HFA,VENTOLIN HFA,PROAIR HFA) 90 mcg/actuation inhaler Inhale 2 puffs every6 (six) hours as needed for wheezing Past Week aspirin 81 mg enteric coated tablet Take 1 tablet (81 mg total) by mouth daily 07/24/2024 bumetanide (BUMEX) 1 mg tablet Take 0.5 tablets (0.5 mg total) by mouth as needed (edema- SOB and leg swelling) Past Week carboxymethylcell-glycerin,PF, 0.5-0.9 % drops Administer 1 drop into affected eye(s) as needed (Dry eyes) Past Month carvediloL (COREG) 6.25 mg tablet Take 0.5 tablets (3.125 mg total) by mouth 2 (two) times a day with meals 07/24/2024 [] chlorhexidine (PERIDEX) 0.12 % solution Apply 15 mL to the mouth or throat 3 (three) times a day for 5 days Swish and rinse for at least 30 seconds . Do not rinse or drink for 1-2 hours after use. 120 mL 0 07/24/[address] (CYMBALTA) 60 mg capsule Take 1 capsule (60 mg total) by mouth every morning 07/23/2024 insulin aspart U-100 (NovoLOG) 100 unit/mL (3 mL) insulin pen Inject 6 Units under the skin daily with dinner 07/23/2024 insulin glargine (LANTUS, SEMGLEE) 100 unit/mL subcutaneous syringe Inject 90 Units under the skin every morning 07/24/2024 [] mupirocin (BACTROBAN) 2 % ointment Apply to each nostril 2 (two) times a day for 5 days (Patient taking differently: Apply 1 Application to each nostril 2 (two) times a day) 22 g 0 07/23/2024 omeprazole (PriLOSEC) 20 mg capsule Take 1 capsule (20 mg total) by mouth every morning 07/24/2024 pregabalin (LYRICA) 200 mg capsule Take 1 capsule (200 mg total) by mouth 2 (two) times a day 07/24/2024 sacubitriL-valsartan (ENTRESTO) 24-26 mg tablet Take 1 tablet by mouth 2 (two) times a day 07/24/2024 ammonium lactate (AMLACTIN) 12 % cream Apply 1 Application topically as needed for dry skin Unknown atorvastatin (LIPITOR) 40 mg tablet Take 1.5 tablets (60 mg total) by mouth every evening 07/22/2024 ibuprofen (ADVIL,MOTRIN) 800 mg tablet Take 1 tablet (800 mg total) by mouth every 6 (six) hours More than a month metFORMIN (GLUCOPHAGE) 1,000 mg tablet Take 1 tablet (1,000 mg total) by mouth 2 (two) times a day with meals 07/17/2024 MULTIVITAMIN ORAL Take 1 tablet by mouth every morning 07/17/2024 naproxen (ALEVE) 220 mg tablet Take 1 tablet (220 mg total) by mouth every 12 (twelve) hours as needed for headaches 07/16/2024 semaglutide (OZEMPIC) 1 mg/dose (4 mg/3 mL) pen injector injection Inject 1 mg under the skin every7 days Wednesday07/17/2024 Discharge Medications: Your medication list START taking these medications Instructions Last Dose Given Next Dose Due acetaminophen 325 mg tablet Commonly known as: TYLENOL 650 mg, oral, Every 6 hours PRN clopidogreL 75 mg tablet Commonly known as: PLAVIX Start taking on: August 12, 2024 75 mg, oral, Daily dextrose 15 gram/32 mL gel in packet 15 g, oral, Every 15 min PRN insulin lispro 100 unit/mL pen for injection Doctor's comments: OK combine base prandial & SSI orders. May sub alternate covered rapid-acting insulin in pen/vial. If sub vial, OK sub appropriate volume SUBQ syringe. If sub pen, OK sub appropriately sized pen needles. Commonly known as: HumaLOG Inject 1-5 units under the skin 3 (three) times a day with meals. Blood glucose mg/dL 150-199: 1 unit, 200-249: 2 units, 250-299: 3 units, 300-349: 4 units, 350 and greater: 5 units. Notify provider for blood glucose greater than 299 mg/dL. Refer to After Visit Summary for Sliding Scale Insulin Instructions. isosorbide mononitrate ER 30 mg 24 hr tablet Commonly known as: IMDUR Start taking on: August 12, 2024 15 mg, oral, Daily magnesium oxide 400 mg (241.3 mg elemental magnesium) tablet Commonly known as: MAG-OX 800 mg, oral, 2 times daily pen needle, diabetic 32 gauge x 5/32 needle Doctor's comments: May substitute one size up or down as is available. Use as directed 3 times a day. CHANGE how you take these medications Instructions Last Dose Given Next Dose Due atorvastatin 80 mg tablet Commonly known as: LIPITOR Start taking on: August 12, 2024 What changed: medication strength how much to take when to take this 80 mg, oral, Daily pregabalin 100 mg capsule Commonly known as: LYRICA What changed: medication strength how much to take 100 mg, oral, 2 times daily CONTINUE taking these medications Instructions Last Dose Given Next Dose Due albuterol HFA 90 mcg/actuation inhaler Commonly known as: PROVENTIL HFA,VENTOLIN HFA,PROAIR HFA 2 puffs, inhalation, Every 6 hours PRN ammonium lactate 12 % cream Commonly known as: AMLACTIN 1 Application, topical, As needed aspirin 81 mg enteric coated tablet 81 mg, oral, Daily carboxymethylcell-glycerin(PF) 0.5-0.9 % drops 1 drop, ophthalmic, As needed DULoxetine DR 60 mg capsule Commonly known as: CYMBALTA 60 mg, oral, Every morning MULTIVITAMIN ORAL 1 tablet, oral, Every morning omeprazole 20 mg capsule Commonly known as: PriLOSEC 20 mg, oral, Every morning STOP taking these medications bumetanide 1 mg tablet Commonly known as: BUMEX carvediloL 6.25 mg tablet Commonly known as: COREG chlorhexidine 0.12 % solution Commonly known as: PERIDEX ibuprofen 800 mg tablet Commonly known as: ADVIL,MOTRIN insulin aspart 100 unit/mL (3 mL) pen for injection Commonly known as: NovoLOG insulin glargine 100 unit/mL subcutaneous syringe Commonly known as: LANTUS, SEMGLEE metFORMIN 1,000 mg tablet Commonly known as: GLUCOPHAGE mupirocin 2 % ointment Commonly known as: BACTROBAN naproxen 220 mg tablet Commonly known as: ALEVE sacubitriL-valsartan 24-26 mg tablet Commonly known as: ENTRESTO semaglutide 1 mg/dose (4 mg/3 mL) pen injector injection Commonly known as: OZEMPIC Where to Get Your Medications Information about where to get these medications is not yet available Ask your nurse or doctor about these medications acetaminophen 325 mg tablet atorvastatin 80 mg tablet clopidogreL 75 mg tablet dextrose 15 gram/32 mL gel in packet insulin lispro 100 unit/mL pen for injection isosorbide mononitrate ER 30 mg 24 hr tablet magnesium oxide 400 mg (241.3 mg elemental magnesium) tablet pen needle, diabetic 32 gauge x 5/32 needle pregabalin 100 mg capsule Outpatient Follow-Up: All Sternotomy patients have been instructed to arrive 30 minutes prior to their appointment to have a chest x-ray completed. Future Appointments Date Time Provider Department Center 08/15/2024 2:45 PM CARD DEVICE CHECK-[facility] 8[facility] Cardiology 09/12/2024 1:15 PM Leonor Quan MD [facility] Contact Information for Follow-ups Leonor Quan MD Specialty: General Surgery, Cardiothoracic Surgery, Thoracic Surgery Relationship: Consulting Physician Zara NEVES [facility] [id number] [place] [address] Next Steps: Follow up Comments: Dr. Quan (or a Cardiac Surgery GREEN END MAN) will see you for follow up in approximately 4 weeks in their office at the [facility] ([address] [place] [address], [address], [place] [address]). Please call [phone] for questions/concerns or to change your appointment. If you do not have an appointment time listed on this paperwork and have not heard from us within two businessdays of your discharge, please call the office to schedule your appointment. Questions: To provider: LEONOR QUAN NP Cosigned by Leonor Quan MD at 08/17/2024 12:53 PM CDT documented in this encounter Discharge Instructions * Discharge Instructions* Va Griffith NP - 08/06/2024 10:35 AM CDT Device: Medtronic CRTD Placement Date: 08/04/2024 Implanter: Dr. Meyer Indication: Ischemic cardiomyopathy with complete heart block Patient doing well this morning post procedure. Alert, oriented, and with mild soreness at incisionsite. Currently feels well and does not endorse any dyspnea, palpitations, or chest pain/pressure. Dressings were removed from left anterior chest wall subclavian incision site. Steristrips left in place. Exam: no warmth appreciated; no firmness or hematoma appreciated; incision well approximated with no active drainage; able to palpate device; no fluctuance noted Telemetry: , BiV paced rhythm Interogation: no concerns with appropriate device function CXR: Pending 2 views Patient Instructions [copy into discharge instructions] First 7 days: No showering [keep wound dry] Do NOT cover site For 2 weeks: No driving For 6 weeks: sling at night but use gentle arm use during daytime to prevent frozen shoulder no lifting of the elbow above the shoulder no heavy lifting [10+ pounds] Precautions: notify the office should swelling occur at incision site or any active drainage appear. Patient verbalized understanding of the above and will follow-up with EP. Please send patient out on Keflex 500mg po BID x 7days. Antibiotics While inpatient, continue IV vancomycin 1g daily and send out on Keflex at discharge . Activity Rest today, increase activity tomorrow as tolerated, except as above Do not drink alcoholic beverages, drive or operate hazardous machinery for 24 hours Additional Instructions Red folder given to patient with verbalization of the written instructions. Extra Strength Tylenol may be taken every 6 hours as needed for pain. Notify the physician office at [phone] immediately if you develop abrupt pain or swelling. If you feel there is an urgent matter, call 911 or go to the emergency room. Call the office at [phone] with any routine questions or concerns. If you are unable to reach your doctor please call [facility] marketing information manager at [phone]. He or she will contact the physician on the Electrophysiology service to assist you. Patient verbalized understanding and will follow-up with EP as scheduled. documented in this encounter Medications at Time [...] mouth 2 (two) times a day 08/11/2024 acetaminophen (TYLENOL) 325 mg tabletIndications :Pain Take 2 tablets (650 mg total) by mouth every 6 (six) hours as needed for fever 08/11/2024 dextrose 15 gram/32 mL gel in packetIndications :hypoglycemic disorder Take 32 mL (15 g total) by mouth every 15 (fifteen) minutes as needed (blood glucose less than 70 mg/dL) 08/11/2024 4 insulin glargine (TOUJEO MAX) 300 unit/mL (3 mL) pen for injection Inject under the skin 11/18/2023 insulin lispro (HumaLOG) 100 unit/mL pen for injection Inject 1-5 units under the skin 3 (three) times a day with meals. Blood glucose mg/dL 150-199: 1 unit, 200-249: 2 units, 250-299: 3 units, 300-349: 4 units, 350 and greater: 5 units. Notify provider for blood glucose greater than 299 mg/dL. Refer to After Visit Summary for Sliding Scale Insulin Instructions. 08/11/2024 4 metFORMIN XR (GLUCOPHAGE XR) 500 mg 24 hr tablet Take 2 tablets (1,000 mg total) by mouth 02/02/2024 4 naproxen (ALEVE) 220 mg tablet Take 1 tablet (220 mg total) by mouth 07/02/2023 4 pen needle, diabetic 32 gauge x needle Use as directed 3 times a day. 08/11/2024 4 semaglutide (OZEMPIC) 1 mg/dose (4 mg/3 mL) pen injector injection Inject under the skin 05/01/2024 4 documented as of this encounter Ordered Prescriptions Prescription Sig Dispense Quantity Refills Last Filled Start Date End Date carvediloL (COREG) 3.125 mg tablet Take 1 tablet (3.125 mg total) by mouth 2 (two) times a day with meals 08/17/2024 5 magnesium oxide (MAG-OX) 400 mg (241.3 mg elemental magnesium) tablet Take 2 tablets (800 mg total) by mouth 2 (two) times a day 08/11/2024 5 isosorbide mononitrate ER (IMDUR) 30 mg 24 hr tablet Take 0.5 tablets (15 mg total) by mouth daily 08/12/2024 5 clopidogreL (PLAVIX) 75 mg tablet Take 1 tablet (75 mg total) by mouth daily 08/12/2024 5 pregabalin (LYRICA) 100 mg capsule Take 1 capsule (100 mg total) by mouth 2 (two) times a day 08/11/2024 5 atorvastatin (LIPITOR) 80 mg tablet Take 1 tablet (80 mg total) by mouth daily 08/12/2024 5 pen needle, diabetic 32 gauge x needle Use as directed 3 times a day. 08/11/2024 insulin lispro (HumaLOG) 100 unit/mL pen for injection Inject 1-5 units under the skin 3 (three) times a day with meals. Blood glucose mg/dL 150-199: 1 unit, 200-249: 2 units, 250-299: 3 units, 300-349: 4 units, 350 and greater: 5 units. Notify provider for blood glucose greater than 299 mg/dL. Refer to After Visit Summary for Sliding Scale Insulin Instructions. 08/11/2024 dextrose 15 gram/32 mL gel in packetIndications: hypoglycemic disorder Take 32 mL (15 g total) by mouth every 15 (fifteen) minutes as needed (blood glucose less than 70 mg/dL) 08/11/2024 acetaminophen (TYLENOL) 325 mg tabletIndications: Pain Take 2 tablets (650 mg total) by mouth every 6 (six) hours as needed for fever 08/11/2024 documented in this encounter Discharge Disposition Disposition Code Departure Means Destination Comment s Discharge to an Rehab facility Ambulance/EMS documented in this encounter Progress Notes * Viry Tabor RN - 08/11/2024 11:50 AM CDT 07/25/24 0931 Discharge Summary Discharge Disposition Acute Rehab Specify Facility [facility] Facility Contact Number [phone], ext. [phone] Facility Attending Name [facility] Attending Contact Number [phone], ext. [phone] Discharge Records Transfer Form Completed;Chart Copied Recommended Discharge Level of Care Acute Rehab Actual Discharge Level of Care Acute Rehab Does Actual Level of Care Match Care Team Recommendation? Yes Post Acute Care Plan Home Care Services N/A OP Services N/A DME N/A Post Acute Care Facility Yes Referral Status Accepted Accepted Post Acute Care Location and Contact [facility] Accepted Post Acute Care Discharge Additional Assistance Does the patient need discharge transport arranged? Yes Type of Transportation Ambulance/EMS Has discharge transport been arranged? Yes Details of Transportation [facility] per [facility] D/C Transport Anticipated Date 08/11/24 D/C Transport Anticipated Time 1225 Discharge Transportation Communication Mode of transport has been discussed with the patient/family. All are agreeable to the plan and understand their responsibilities to ensure the safe transfer. No further CM/SW intervention is anticipated at this time. Post Discharge Care Provider Post Discharge Care Plan DC Summary has been faxed to next level of care provider (see Follow Up Providers) Per medical team, patient is medically stable for discharge at this time. Patient has been acceptedto [facility]. CM spoke with the patient/family, admissions, medical team, and RN regardingdischarge planning, and all are agreeable to discharge. Post-acute care transfer packet completed an d will be sent with the patient. RN provided with report number to nurses station. Room # [address] [place] [address] provided by facility. Mode of transport has been discussed with the patient/family, MD, nursing staff. All are agreeable to plan and understand their responsibilities to ensure the safe transfer. * Cindy Pacheco NP - 08/10/2024 3:10 PM CDT Cardiac Surgery Daily Progress 07/24 CABG x 3 (BURGESS to LAD, left radial to OM, SVG to PDA and sternal plating. SUBJECTIVE Chief complaint: none Interval History: adjusting insulins today. Working on placement (CO) OBJECTIVE Current Facility-Administered Medications: acetaminophen (TYLENOL) tablet 650 mg, 650 mg, oral, Q6H PRN, Bianka Gallagher NP, 650 mg at 08/08/24 1856 aspirin chewable tablet 81 mg, 81 mg, oral, Daily, Asya Brandon MD, 81 mg at 08/10/24 1023 atorvastatin (LIPITOR) tablet 80 mg, 80 mg, oral, Daily, Kathrin Humphrey NP, 80 mg at 023 carvediloL (COREG) tablet 3.125 mg, 3.125 mg, oral, BID with meals (bkfst, dinner), Va Griffith NP, 3.125 mg at 08/10/24 1023 clopidogreL (PLAVIX) tablet 75 mg, 75 mg, oral, Daily, Asya Brandon MD, 75 mg at 08/10/24 1023 dextrose gel in packet 15 g, 15 g, oral, Q15 Min PRN OR dextrose (D10W) 10% bolus 250 mL, 250 mL, intravenous, Q15 Min PRN, Cindy Pacheco NP DULoxetine (CYMBALTA) extended release capsule 60 mg, 60 mg, oral, Nightly, Asya Brandon MD, 60 mg at 08/09/24 211 glucagon injection 1 mg, 1 mg, intramuscular, Q30 Min PRN, Cindy Pacheco NP insulin lispro (HumaLOG, ADMELOG) 100 unit/mL injection 0-4 Units, 0-4 Units, subcutaneous, Nightly, Cindy Pacheco NP insulin lispro (HumaLOG, ADMELOG) 100 unit/mL injection 0-5 Units, 0-5 Units, subcutaneous, TID with meals, Cindy Pacheco NP isosorbide mononitrate ER (IMDUR) extended release tablet 15 mg, 15 mg, oral, Daily, Bianka Gallagher NP, 15 mg at 08/10/24 1022 magnesium oxide (MAG-OX) tablet 800 mg, 800 mg, oral, BID, Kathrin Humphrey NP, 800 mg at 08/10/24 1023 methocarbamoL (ROBAXIN) tablet 500 mg, 500 mg, oral, TID, Asya Brandon MD, 500 mg at 08/10/24 1023 ondansetron (ZOFRAN) injection 4 mg, 4 mg, intravenous, Q6H PRN, Asya Brandon MD pantoprazole (PROTONIX) extended release tablet 40 mg, 40 mg, oral, Daily, Asya Brandon MD, 40 mgat 08/10/24 1023 pregabalin (LYRICA) capsule 50 mg, 50 mg, oral, BID, Leonor Quan MD QUEtiapine (SEROquel) tablet 25 mg, 25 mg, oral, Nightly, Cindy Pacheco NP ramelteon (ROZEREM) tablet 8 mg, 8 mg, oral, Nightly PRN, Kathrin Humphrey NP, 8 mg at 114 Vitals: 24hr Min/Max: Temp Min: 36.3 ??C (97.3 ??F) Max: 36.5 ??C (97.7 ??F) Pulse Min: 58 Max: 68 BP Min: 97/55 Max: 126/54 Resp Min: 16 Max: 18 SpO2 Min: 92 % Max: 100 % Most Recent : Vitals: 08/10/24 1257 BP: Pulse: 67 Resp: Temp: SpO2: I/O last 2 completed shifts: In: - Out: 800 [Urine:800] I/O this shift: In: - Out: 600 [Urine:600] Physical Exam: Physical Exam Vitals reviewed. Constitutional: Appearance: Normal appearance. He is obese. HENT: Head: Normocephalic. Nose: Nose normal. Cardiovascular: Rate and Rhythm: Normal rate and regular rhythm. Pulmonary: Effort: Pulmonary effort is normal. Breath sounds: Normal breath sounds. Comments: On RA Abdominal: General: Bowel sounds are normal. Palpations: Abdomen is soft. Comments: Having nml BMs Musculoskeletal: Cervical back: Normal range of motion. Right lower leg: No edema. Left lower leg: No edema. Skin: General: Skin is warm and dry. Comments: Prineo to sternum and L arm clean and dry Neurological: Mental Status: He is alert and oriented to person, place, and time. Mental status is at baseline. Psychiatric: Mood and Affect: Mood normal. Behavior: Behavior normal. Lab/Radiology/Diagnostic Review: Laboratory review: Lab results in the last 24 hours: Recent Results (from the past 24 hour(s)) POCT glucose Collection Time: 08/09/24 4:09 PM Result Value Ref Range Glucose, POC 94 70 - 199 mg/dL POCT glucose Collection Time: 08/09/24 9:33 PM Result Value Ref Range Glucose, POC 97 70 - 199 mg/dL Magnesium Collection Time: 08/09/24 9:51 PM Result Value Ref Range Magnesium 2.1 1.4 - 2.5 mg/dL Basic metabolic panel Collection Time: 08/09/24 9:51 PM Result Value Ref Range Sodium 135 135 - 145 mmol/L Potassium, pl 4.3 3.3 - 4.9 mmol/L Chloride 101 97 - 110 mmol/L CO2 24 22 - 32 mmol/L Anion gap 10 2 - 15 mmol/L BUN 23 6 - 25 mg/dL Creatinine 0.91 0.80 - 1.30 mg/dL Glucose 86 70 - 199 mg/dL Calcium 8.3 (L) 8.5 - 10.3 mg/dL CBC without differential Collection Time: 08/09/24 9:51 PM Result Value Ref Range WBC 6.5 3.8 - 9.9 K/cumm Hgb 8.5 (L) 13.0 - 17.5 g/dL Hct 27.7 (L) 38.9 - 50.3 % Plt 207 150 - 400 K/cumm MPV 8.7 (L) 9.1 - 12.3 fL RBC 3.45 (L) 4.30 - 5.80 M/cumm MCV 80.3 (L) 81.3 - 96.4 fL MCH 24.6 (L) 27.1 - 33.3 pg MCHC 30.7 (L) 32.3 - 35.7 g/dL RDW CV 16.2 (H) 11.1 - 14.9 % RDW SD 46.4 35.7 - 48.1 fL NRBC abs 0.00 0.00 - 0.01 K/cumm eGFR Collection Time: 08/09/24 9:51 PM Result Value Ref Range eGFR 90 >=60 mL/min/1.73 m2 POCT glucose Collection Time: 08/10/24 8:13 AM Result Value Ref Range Glucose, POC 73 70 - 199 mg/dL POCT glucose Collection Time: 08/10/24 10:04 AM Result Value Ref Range Glucose, POC 99 70 - 199 mg/dL POCT glucose Collection Time: 08/10/24 12:04 PM Result Value Ref Range Glucose, POC 105 70 - 199 mg/dL ASSESSMENT/PLAN DM2 (diabetes mellitus, type 2) ([facility]) Assessment & Plan - Home regimen: Lantus 90 units - 07/14 A1C 7.5 - Lantus 35 units + SSI with low glucoses, will hold lantus and use SSI only for now Restart Lyrica for neuropathy (200 BID at home) Complete heart block (CMS/HCC) ([facility]) Assessment & Plan EP consulted S/P PPM placed on 08/04 Wires out Continue telemetry montioring Bradycardia Assessment & Plan S/P PPM placed on 08/04 Wires out Continue telemetry montioring Coronary artery disease due to calcified coronary lesion Assessment & Plan S/p CABG x3 with sternal plating 07/24/24 PT/OT- recs for rehab - Aspirin, statin, plavix daily - Imdur daily - continue coreg dose - didn't tolerate entresto Aggressive Pulmonary toilet Wires and tubes out Seroquel started in ICU, weaning dose today again(25 mg 08/10) Cindy Pacheco NP 08/10/2024 Cosigned by Leonor Quan MD at 08/11/2024 6:32 PM CDT * Lizette Stallworth, RD - 08/10/2024 10:30 AM CDT NUTRITION ASSESSMENT Nutrition Status: Patient does not meet ASPEN criteria for malnutrition at this time. REASON FOR ASSESSMENT: Follow Up Encounter Date: 08/10/24 10:30 AM Admission Date: 07/24/2024 LOS: 17 days HPI: Patient is a 74 y.o. male with hx of CAD s/p CABG x3 and Sternal Plating (08/03). 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 Objective Past Medical History: Diagnosis Date Asthma Diabetes mellitus (HCC) GERD (gastroesophageal reflux disease) HH (hiatus hernia) Hypertension Sleep apnea pt uses CPAP machine nightly Past Surgical History: Procedure Laterality Date KIDNEY SURGERY 1960 MULTIPLE TOOTH EXTRACTIONS TOTAL KNEE ARTHROPLASTY Left 2017 TOTAL KNEE ARTHROPLASTY Right 2019 Social History Tobacco Use Smoking status: Former Current packs/day: 0.00 Average packs/day: 1.5 packs/day for 19.6 years (29.4 ttl pk-yrs) Types: Cigarettes Start date: 1960 Quit date: 06/11/1980 Years since quittin.1 Passive exposure: Past Smokeless tobacco: Never Substance and Sexual Activity Drug use: Not Currently Sexual activity: Defer Alcohol Use: Not At Risk (07/24/2024) AUDIT-C Frequency of Alcohol Consumption: Monthly or less Average Number of Drinks: 1 or 2 Frequency of Binge Drinking: Never MEDICATION/LAB REVIEW: Scheduled Meds: aspirin, 81 mg, oral, Daily atorvastatin, 80 mg, oral, Daily carvediloL, 3.125 mg, oral, BID with meals (bkfst, dinner) clopidogreL, 75 mg, oral, Daily DULoxetine DR, 60 mg, oral, Nightly [START ON 08/11/2024] insulin glargine, 15 Units, subcutaneous, Nightly insulin lispro, 0-10 Units, subcutaneous, TID with meals insulin lispro, 0-5 Units, subcutaneous, Nightly isosorbide mononitrate ER, 15 mg, oral, Daily magnesium oxide, 800 mg, oral, BID methocarbamoL, 500 mg, oral, TID pantoprazole DR, 40 mg, oral, Daily potassium chloride ER, 40 mEq, oral, Daily QUEtiapine, 50 mg, oral, Nightly [Held by Provider] sacubitriL-valsartan, 1 tablet, oral, BID Continuous Infusions: PRN Meds: acetaminophen dextrose OR dextrose glucagon ondansetron ramelteon Recent Labs Lab Units 08/09/24215008/08/24220108/07/24 2228 SODIUM mmol/L 135 133* 135 POTASSIUM PLASMA mmol/L 4.3 3.5 3.4 CHLORIDE mmol/L 101 99 99 CO2 mmol/L 24 24 27 BUN SERUM mg/dL 23 26* 24 CREATININE mg/dL 0.91 0.97 1.01 [id number] mL/min/1.73 m2 90 83 79 CALCIUM mg/dL 8.3* 8.0* 8.3* PHOSPHORUS PLASMA mg/dL -- -- 2.8 MAGNESIUM mg/dL 2.1 1.8 1.8 Recent Labs Lab Units 08/10/24 1004 08/10/24 0813 08/09/24 21508/09/24 2133 08/09/24 1609 08/09/24 1248 08/09/24 1047 GLUCOSE mg/dL -- -- 86 -- -- -- -- POC GLUCOSE MONITOR mg/dL 99 73 -- 97 94 134 124 No results found for: ALT , AST , BILIRUBIN , ALKPHOS , LIPASE Lab Results Component Value Date HDL 26 (L) 07/24/2024 LDLCALC 56 07/24/2024 CHOL 101 07/24/2024 TRIG 93 07/24/2024 TRIG 100 07/24/2024 NURSING ASSESSMENT: Last BM Date: 08/08/24 Bowel Sounds (All Quadrants): Passing flatus Naresh Scale Score: 19 Skin Integrity: Surgical incision Edema: Trace Minute Ventilation (L/min): 7.2 L/min Vital Signs BP: 126/54 Temp: 36.4 ??C (97.5 ??F) Pulse: 68 Resp: 18 SpO2: 96 % Intake/Output Summary (Last 24 hours) at 08/10/2024 1030 Last data filed at 08/10/2024 1025 Gross per 24 hour Intake -- Output 1300 ml Net -1300 ml Adult Malnutrition Scoring Tool (MST) What diet do you follow at home?: Consistent Carbohydrate Have You Recently Lost Weight Without Trying?: No Have you been eating poorly because of a decreased appetite?: No Malnutrition Screening Tool (MST) Score: 0 Hunger Screen - Admission Within the past 12 months the food we bought just didn't last and we didn't have money to get more.: Never true Within the past 12 months we worried whether our food would run out before we got money to buy more.: Never true Anthropometrics Weight: 99.3 kg (218 lb 14.7 oz) Admission Weight : 111.1 kg Weight Change: 2.80 kg (6.17 lbs) IBW/kg (Calculated) : 75.3 kg Height: 177.8 cm (5' 10 ) Weight in (lb) to have BMI = 25: 173.9 BMI (Calculated): 31.4 Wt Readings from Last 10 Encounters: 08/10/24 99.3 kg (218 lb 14.7 oz) 07/14/24 110.2 kg (242 lb 15.2 oz) 06/23/20 113.4 kg (250 lb) ESTIMATED NEEDS: Total Kcal/kg Estimated Needs : 1855.8 Kcal/k. Type of Weight Used for Estimated Kcals: Current Total Protein Estimated Needs (gm): 90.36 Protein Needs Based on g/k.2 Type of Weight Used for Estimated Protein : [place] Total Fluid Estimated Needs: 1882.5 Fluid Needs Based on : 25 ml/kg Type of Weight Used for Estimated Fluid Needs: [place] Dietary Orders (From admission, onward) Start Ordered 08/08/242015 Adult Diet Restricted; Mechanical Soft; Consistent Carbohydrate; Regular Liquid Diet effective now Question Answer Comment ([facility]) Diet type Restricted Modified Consistency: Mechanical Soft Diabetic: Consistent Carbohydrate Fluid Consistency: Regular Liquid 08/08/242014 Allergies: Reviewed, NKFA IMPRESSION: Pt reports his appetite and po intake have improved even more and feels he has been eating well now. No po intake documented in chart since 08/06. Pt has not been drinking Glucerna shakes d/t dislike,requests they be removed from orders. No n/v or issues with BMs now. +watery BM yesterday, not taking bowel regimen. Will monitor. Pt still getting weighed via bed scale, is +6 lbs since yesterday. Suspect is r/t bed scale wts andfluid status. +1-2 edema last night, none documented yet today. Not on diuretics. Labs reviewed. BG well controlled with insulin, not requiring SSI. A1c 7.5% (07/14/24). Surgical sites present. ASPEN MALNUTRITION ASSESSMENT: Date of completion: 07/31 NUTRITION FOCUSED PHYSICAL EXAM: Not clinically indicated, no concerns for malnutrition at this time. NUTRITION DIAGNOSIS: Nutrition Diagnosis 1: Inadequate oral intake Related to: Acute illness/injury, Loss of appetite Evidenced by: Patient interview INTERVENTION(S): Summary: Communication, Encouragement, Medical food supplement Encourage po intake >75% of meals Encourage kcal/protein intake for post-op healing Recommend regular wts via standing scale when able GOAL(S): Adequate nutrition to meet estimated needs by next assessment, Advance to oral intake as medically able, Oral intake to meet 75% estimated nutritional needs by next assessment MONITORING/EVALUATION: Appetite, Blood glucoses, Diet advancement, Electrolyte changes, Hydration status, Labs, PO intake,Stool patterns, Supplement tolerance, Swallow function, Weight changes Rehana Stallworth MS, RD, LD [facility] [phone] On-call/weekend: [phone] * Cami Thakur PTA - 08/09/2024 2:40 PM CDT Physical Therapy Physical Therapy Progress Note NOTE: This is a summary note of the barreto components of the treatment session. For full details, review chart for all flowsheets documented on by this physical therapy clinician on this date. Vital signs documented in vital signs flowsheet. Care plan progress documented in Care Plan Activity. For questions, please review the treatment team and contact the PT or APPLIANCE ASSEMBLER currently assigned to this patient. If a physical therapy clinician is not assigned to this patient, please call [phone]. 08/09/24 1440 PT Last Visit Session Type Treatment PT Received On 08/09/24 Safe Environment Arm band checked;Gait belt not utilized, see comment;Patient found in supine (2/2 incision) Subjective Agreeable to Therapy Family/Caregiver Present No Precautions Precautions Cardiac sternal;Fall risk;Pacemaker Precaution Comments Verbally reviewed sternal and PPM precautions prior to mobility, would benefit from continued reinforcement Activity Tolerance Activity Tolerance Comments Pretty: SH Cognition Orientation Oriented X4 (person, place, time, situation) Following Commands Follows all commands and directions without difficulty Safety Judgment Decreased awareness of need for assistance Compliance/Behavior Easy to engage Balance Balance Yes Static Sitting Balance Static Sitting-Balance Support No upper extremity supported;Feet supported Static Sitting-Sitting Surface Bed;Chair Static Sitting-Level of Assistance Close supervision Static Sitting-Comment/# of Minutes Sup to ensure balance and safety Static Standing Balance Static Standing-Balance Support Bilateral upper extremity supported (w/w) Static Standing-Standing Surface Floor Static Standing-Level of Assistance Minimum assistance Static Standing-Comment/# of Minutes assist for steadying, safety, upright posture, posterior lean,lateral LOB Bed Mobility Bed Mobility Yes Bed Mobility 1 Bed Mobility From 1 Supine Bed Mobility Type 1 To and from Bed Mobility to 1 Edge of bed Level of Assistance 1 Minimum Assist;Minimal verbal cues;Minimal tactile cues Bed Mobility Comments 1 HOB 30; assist for trunk control Transfers Transfer Yes Transfer 1 Transfer From 1 Sit Transfer Type 1 To and from Transfer to 1 Stand Technique 1 Sit to stand;Stand to sit Transfer Device 1 Wheeled walker Transfer Level of Assistance 1 Minimum Assist;Minimal verbal cues;Minimal tactile cues (assist of 2) Trials/Comments 1 assist of 2 for forced production, balance, safety, transitioning hands to/from w/w, and controlling descent to chair Transfers 2 Transfer From 2 Wheelchair Transfer Type 2 To Transfer to 2 Commode-standard Technique 2 Stand and step;To left Transfer Device 2 Wheeled walker Transfer Level of Assistance 2 Minimum Assist;Minimal verbal cues;Minimal tactile cues (assist of 2) Trials/Comments 2 assist for forced production, balance, hand placement, sequencing, upright posutre, and controlling descent Transfers 3 Transfer From 3 Commode-standard Transfer Type 3 To Transfer to 3 Bed Technique 3 Stand and step;To left Transfer Device 3 Wheeled walker Transfer Level of Assistance 3 Minimum Assist;Moderate verbal cues;Minimal tactile cues Trials/Comments 3 assist for forced production, anterior weight shift, balance, safety, hip/knee extension, hand placement, controlling descent Ambulation Ambulation Yes Ambulation 1 Distance (ft) 1 10' (+18') Surface 1 Level tile Device 1 Wheeled walker Other Apparatus 1 Wheelchair follow (close) Assistance 1 Minimum Assist;Moderate verbal cues;Minimal tactile cues (assist of 2) Gait: Requires assist with 1 Maintaining balance;Weight shifting Gait: Requires verbal cues to 1 Utilize appropriate gait sequencing;Improve upright posture;Pace activity;Utilize pursed lip breathing;Use assistive device safely;Follow precautions/weight bearing status;Prevent bumping into environmental barriers (cueva/furniture);Increase base of support;Increasestep length Gait Deviations 1 Rissa - decreased;Step length - decreased;Turns - difficulty;Base of support - decreased;Ataxic;Heel strike - decreased;Path deviation;Posture - flexed;Hip/knee flexion during swing phase - decreased;Weight bearing through UE???s - increased Ambulation Comments 1 1 seated rest taken 2/2 fatigue and SOB, returned to room via w/c to use BSC Stairs Stairs No Basic Mobility - 6 Click How much difficulty does the patient have: Turning over in bed 2 How much difficulty does the patient currently have: Sitting down and standing up from a chair witharms? 2 How much difficulty does the patient have: Moving from lying on back to sitting on the side of the bed? 3 How much difficulty does the patient have: Moving to and from a bed to a chair including wheelchair? 2 How much help does the patient currently need: Walk in hospital room? 2 How much help from another person does the patient currently need: Climbing 3-5 steps with a railing? 2 Total 6 Click Score (range 6-24) 13 Score Interpretation 33.99 Safe Environment End of Therapy Session Safe Environment End of Therapy Session RN notified;Call light within reach;Overbed table within reach;Patient left supine in bed Plan Plan Continue with current plan (Per PT) Recommendation/Plan PT Recommendation/Plan Inpatient Rehab Facility Patient at high risk for Falls;Readmission;Injury due to decreased ability to care for self;Injury due to reduced functional status;Injury due to balance deficits;Injury at home as patient has not returned to prior level of function Recommend Inpatient Rehab/Acute Rehab due to Ability to actively participate in intensive therapy 3hours/day, 5 days/week or 900 minutes per week;Not at baseline due to impaired ability to complete ADLs;Requires greater than 25% physical assistance with most mobility tasks;Requires multiple therapy disciplines to address functional deficits PT Frequency during current admission 3-5x/wk PT - Next Appointment 08/10/24 Time Calculation Start Time 1440 Stop Time 1524 Time Calculation (min) 44 min Multi-Disciplinary Problems (from Physical Therapy) Active Problems Problem: Mobility Start Date: 07/26/24 Goal Start Date Expected End Date End Date LTG - Patient will ambulate community distance 07/26/24 08/09/24 -- Goal Details: MOd I with SC Goal Start Date Expected End Date End Date STG - Patient will ambulate 07/26/24 08/09/24 -- Goal Details: 250ft, SBA LRAD Goal Start Date Expected End Date End Date STG - Patient will ascend and descend 2 stairs with the following level of assist: 07/26/24 08/09/24 -- Goal Details: SBA with HR Problem: Transfers Start Date: 07/26/24 Goal Start Date Expected End Date End Date STG - Patient will perform bed mobility 07/26/24 08/09/24 -- Goal Details: SBA Goal Start Date Expected End Date End Date STG - Patient will transfer sit to and from stand 07/26/24 08/09/24 -- Goal Details: SBA LRAD Problem: PT Misc Start Date: 07/26/24 Goal Start Date Expected End Date End Date PT STG - Misc 1 07/26/24 08/09/24 -- Goal Details: Patient and caregivers will participate in and demonstrate understanding of therapeutic exercise and safe mobility strategies to improve independence with functional mobility. * Bianka Gallagher NP - 08/09/2024 10:17 AM CDT Cardiac Surgery Daily Progress 5 Days Post-Op SUBJECTIVE Chief complaint of none. Interval History: waiting on ca bed OBJECTIVE Current Facility-Administered Medications: acetaminophen (TYLENOL) tablet 650 mg, 650 mg, oral, Q6H PRN, Bianka Gallagher NP, 650 mg at 08/08/24 1856 aspirin chewable tablet 81 mg, 81 mg, oral, Daily, Asya Brandon MD, 81 mg at 08/09/24 1004 atorvastatin (LIPITOR) tablet 80 mg, 80 mg, oral, Daily, Kathrin Humphrey NP, 80 mg at 005 carvediloL (COREG) tablet 3.125 mg, 3.125 mg, oral, BID with meals (bkfst, dinner), Nacho, Va Medeiros NP, 3.125 mg at 08/09/24 1005 clopidogreL (PLAVIX) tablet 75 mg, 75 mg, oral, Daily, Asya Brandon MD, 75 mg at 08/09/24 1005 dextrose gel in packet 15 g, 15 g, oral, Q15 Min PRN OR dextrose (D10W) 10% bolus 250 mL, 250 mL, intravenous, Q15 Min PRN, Asya Brandon MD DULoxetine DR (CYMBALTA) extended release capsule 60 mg, 60 mg, oral, Nightly, Asya Brandon MD, 60 mg at 08/08/242113 glucagon injection 1 mg, 1 mg, intramuscular, Q30 Min PRN, Asya Brandon MD insulin glargine (LANTUS, SEMGLEE) 100 unit/mL injection 35 Units, 35 Units, subcutaneous, DAVINA, Debra, Mayi Fritz NP, 35 Units at 08/09/24 100 insulin lispro (HumaLOG, ADMELOG) 100 unit/mL injection 0-10 Units, 0-10 Units, subcutaneous, TID with meals, Asya Brandon MD, 2 Units at 08/08/24 1237 insulin lispro (HumaLOG, ADMELOG) 100 unit/mL injection 0-5 Units, 0-5 Units, subcutaneous, Nightly, Asya Brandon MD, 1 Units at 07/31/242025 isosorbide mononitrate ER (IMDUR) extended release tablet 15 mg, 15 mg, oral, Daily, Bianka Gallagher NP, 15 mg at 08/09/24 1005 magnesium oxide (MAG-OX) tablet 800 mg, 800 mg, oral, BID, Kathrin Humphrey NP, 800 mg at 08/09/24 1005 methocarbamoL (ROBAXIN) tablet 500 mg, 500 mg, oral, TID, Asya Brandon MD, 500 mg at 08/09/24 1006 ondansetron (ZOFRAN) injection 4 mg, 4 mg, intravenous, Q6H PRN, Asya Brandon MD pantoprazole DR (PROTONIX) extended release tablet 40 mg, 40 mg, oral, Daily, Asya Brandon MD, 40 mgat 08/09/24 1005 potassium chloride ER (KLOR-CON) extended release tablet 40 mEq, 40 mEq, oral, Daily, Kathrin Humphrey NP, 40 mEq at 08/09/24 100 QUEtiapine (SEROquel) tablet 50 mg, 50 mg, oral, Nightly, NachoVa NP, 50 mg at 08/08/242113 ramelteon (ROZEREM) tablet 8 mg, 8 mg, oral, Nightly PRN, Kathrin Humphrey NP, 8 mg at 114 [Held by Provider] sacubitriL-valsartan (ENTRESTO) 24-26 mg tablet 1 tablet, 1 tablet, oral, BID, NachoVa NP, 1 tablet at 08/07/242058 Vitals: 24hr Min/Max: Temp Min: 36.3 ??C (97.3 ??F) Max: 37 ??C (98.6 ??F) Pulse Min: 65 Max: 108 BP Min: 92/79 Max: 133/100 Resp Min: 18 Max: 19 SpO2 Min: 96 % Max: 100 % Most Recent : Vitals: 08/09/24 1000 BP: Pulse: 69 Resp: Temp: SpO2: I/O last 2 completed shifts: In: - Out: 830 [Urine:830] No intake/output data recorded. Physical Exam: Physical Exam Vitals reviewed. Constitutional: Appearance: Normal appearance. HENT: Head: Normocephalic. Eyes: Conjunctiva/sclera: Conjunctivae normal. Cardiovascular: Rate and Rhythm: Normal rate and regular rhythm. Pulses: Normal pulses. Comments: NSR 65-80s Pulmonary: Effort: Pulmonary effort is normal. No respiratory distress. Breath sounds: Normal breath sounds. No wheezing. Comments: On room air Abdominal: General: Bowel sounds are normal. There is no distension. Palpations: Abdomen is soft. Tenderness: There is no abdominal tenderness. Comments: BM 3 days ago Passing gas, no nausea Musculoskeletal: General: Normal range of motion. Right lower leg: No edema. Left lower leg: No edema. Comments: Trace BLE edema Skin: General: Skin is warm and dry. Comments: Sternal incision well approximated with prineo dressing intact Former chest tube sites open to air, well healing L chest PPM site well approximated with steri strips L arm incision well approximated, no redness or drainage R leg SVG site w/ wound glue Neurological: General: No focal deficit present. Mental Status: He is alert and oriented to person, place, and time. Psychiatric: Mood and Affect: Mood normal. Behavior: Behavior normal. Lab/Radiology/Diagnostic Review: Laboratory review: Lab results in the last 24 hours: Recent Results (from the past 24 hour(s)) POCT glucose Collection Time: 08/08/24 11:27 AM Result Value Ref Range Glucose, POC 166 70 - 199 mg/dL POCT glucose Collection Time: 08/08/24 5:32 PM Result Value Ref Range Glucose, POC 113 70 - 199 mg/dL POCT glucose Collection Time: 08/08/24 7:07 PM Result Value Ref Range Glucose, POC 139 70 - 199 mg/dL Magnesium Collection Time: 08/08/24 10:02 PM Result Value Ref Range Magnesium 1.8 1.4 - 2.5 mg/dL Basic metabolic panel Collection Time: 08/08/24 10:02 PM Result Value Ref Range Sodium 133 (L) 135 - 145 mmol/L Potassium, pl 3.5 3.3 - 4.9 mmol/L Chloride 99 97 - 110 mmol/L CO2 24 22 - 32 mmol/L Anion gap 10 2 - 15 mmol/L BUN 26 (H) 6 - 25 mg/dL Creatinine 0.97 0.80 - 1.30 mg/dL Glucose 138 70 - 199 mg/dL Calcium 8.0 (L) 8.5 - 10.3 mg/dL CBC without differential Collection Time: 08/08/24 10:02 PM Result Value Ref Range WBC 8.0 3.8 - 9.9 K/cumm Hgb 8.4 (L) 13.0 - 17.5 g/dL Hct 26.8 (L) 38.9 - 50.3 % Plt 206 150 - 400 K/cumm MPV 9.0 (L) 9.1 - 12.3 fL RBC 3.34 (L) 4.30 - 5.80 M/cumm MCV 80.2 (L) 81.3 - 96.4 fL MCH 25.1 (L) 27.1 - 33.3 pg MCHC 31.3 (L) 32.3 - 35.7 g/dL RDW CV 15.9 (H) 11.1 - 14.9 % RDW SD 45.8 35.7 - 48.1 fL NRBC abs 0.00 0.00 - 0.01 K/cumm Type and screen Collection Time: 08/08/24 10:02 PM Result Value Ref Range Janell, indirect Negative ABO Rh O Positive eGFR Collection Time: 08/08/24 10:02 PM Result Value Ref Range eGFR 83 >=60 mL/min/1.73 m2 POCT glucose Collection Time: 08/09/24 8:13 AM Result Value Ref Range Glucose, POC 101 70 - 199 mg/dL ASSESSMENT/PLAN DM2 (diabetes mellitus, type 2) ([facility]) Assessment & Plan - Home regimen: Lantus 90 units - 9/ A1C 7.5 - Lantus 35 units + SSI Complete heart block (CMS/HCC) ([facility]) Assessment & Plan EP consulted S/P PPM placed on 08/04 Wires out Continue telemetry montioring Bradycardia Assessment & Plan S/P PPM placed on 08/04 Wires out Continue telemetry montioring Coronary artery disease due to calcified coronary lesion Assessment & Plan S/p CABG x3 with sternal plating PT/OT- recs for rehab - Aspirin, statin, plavix daily - Imdur daily - continue coreg dose - didn't tolerate entresto Aggressive Pulmonary toilet Wires and tubes out Seroquel started in ICU, weaning dose today Bianka Gallagher NP 08/09/2024 Cosigned by Leonor Quan MD at 08/09/2024 1:44 PM CDT * Bianka Gallagher NP - 08/08/2024 11:03 AM CDT Cardiac Surgery Daily Progress 4 Days Post-Op SUBJECTIVE Chief complaint of none. Interval History: [facility] OBJECTIVE Current Facility-Administered Medications: acetaminophen (TYLENOL) tablet 650 mg, 650 mg, oral, Q6H PRN, Bianka Gallagher NP, 650 mg at 08/08/24 0752 aspirin chewable tablet 81 mg, 81 mg, oral, Daily, Asya Brandon MD, 81 mg at 08/08/24 0929 atorvastatin (LIPITOR) tablet 40 mg, 40 mg, oral, Daily, Asya Brandon MD, 40 mg at 08/08/24 0930 carvediloL (COREG) tablet 3.125 mg, 3.125 mg, oral, BID with meals (bkfst, dinner), Nacho, Va Medeiros NP, 3.125 mg at 08/08/24928 clopidogreL (PLAVIX) tablet 75 mg, 75 mg, oral, Daily, Asya Brandon MD, 75 mg at 08/08/24 0930 dextrose gel in packet 15 g, 15 g, oral, Q15 Min PRN OR dextrose (D10W) 10% bolus 250 mL, 250 mL, intravenous, Q15 Min PRN, Asya Brandon MD DULoxetine DR (CYMBALTA) extended release capsule 60 mg, 60 mg, oral, Nightly, Asya Brandon MD, 60 mg at 08/07/24 2100 glucagon injection 1 mg, 1 mg, intramuscular, Q30 Min PRN, Asya Brandon MD insulin glargine (LANTUS, SEMGLEE) 100 unit/mL injection 35 Units, 35 Units, subcutaneous, DAVINA, Debra, Mayi Fritz NP, 35 Units at 08/08/24 0930 insulin lispro (HumaLOG, ADMELOG) 100 unit/mL injection 0-10 Units, 0-10 Units, subcutaneous, TID with meals, Asya Brandon MD, 2 Units at 08/06/24 1721 insulin lispro (HumaLOG, ADMELOG) 100 unit/mL injection 0-5 Units, 0-5 Units, subcutaneous, Nightly, Asya Brandon MD, 1 Units at 07/31/242025 isosorbide mononitrate ER (IMDUR) extended release tablet 15 mg, 15 mg, oral, Daily, Asya Brandon MD, 15 mg at 08/08/24 09 methocarbamoL (ROBAXIN) tablet 500 mg, 500 mg, oral, TID, Asya Brandon MD, 500 mg at 08/08/24 0752 ondansetron (ZOFRAN) injection 4 mg, 4 mg, intravenous, Q6H PRN, Asya Brandon MD pantoprazole DR (PROTONIX) extended release tablet 40 mg, 40 mg, oral, Daily, Asya Brandon MD, 40 mgat 08/08/24929 QUEtiapine (SEROquel) tablet 50 mg, 50 mg, oral, Nightly, Nacho, Va Medeiros NP, 50 mg at 08/07/242058 sacubitriL-valsartan (ENTRESTO) 24-26 mg tablet 1 tablet, 1 tablet, oral, BID, Nacho, Va Medeiros NP, 1 tablet at 08/07/242058 Vitals: 24hr Min/Max: Temp Min: 36.3 ??C (97.3 ??F) Max: 36.5 ??C (97.7 ??F) Pulse Min: 66 Max: 84 BP Min: 88/54 Max: 136/58 Resp Min: 18 Max: 19 SpO2 Min: 93 % Max: 100 % Most Recent : Vitals: 08/08/24 1035 BP: 103/54 Pulse: 69 Resp: Temp: SpO2: 98% I/O last 2 completed shifts: In: - Out: 1130 [Urine:1130] No intake/output data recorded. Physical Exam: Physical Exam Vitals reviewed. Constitutional: Appearance: Normal appearance. HENT: Head: Normocephalic. Eyes: Conjunctiva/sclera: Conjunctivae normal. Cardiovascular: Rate and Rhythm: Normal rate and regular rhythm. Pulses: Normal pulses. Comments: NSR 65-80s Pulmonary: Effort: Pulmonary effort is normal. No respiratory distress. Breath sounds: Normal breath sounds. No wheezing. Comments: On room air Abdominal: General: Bowel sounds are normal. There is no distension. Palpations: Abdomen is soft. Tenderness: There is no abdominal tenderness. Comments: BM 3 days ago Passing gas, no nausea Musculoskeletal: General: Normal range of motion. Right lower leg: No edema. Left lower leg: No edema. Comments: Trace BLE edema Skin: General: Skin is warm and dry. Comments: Sternal incision well approximated with prineo dressing intact Former chest tube sites open to air, well healing L chest PPM site well approximated with steri strips L arm incision well approximated, no redness or drainage R leg SVG site w/ wound glue Neurological: General: No focal deficit present. Mental Status: He is alert and oriented to person, place, and time. Psychiatric: Mood and Affect: Mood normal. Behavior: Behavior normal. Lab/Radiology/Diagnostic Review: Laboratory review: Lab results in the last 24 hours: Recent Results (from the past 24 hour(s)) POCT glucose Collection Time: 08/07/24 11:53 AM Result Value Ref Range Glucose, POC 142 70 - 199 mg/dL POCT glucose Collection Time: 08/07/24 4:46 PM Result Value Ref Range Glucose, POC 147 70 - 199 mg/dL POCT glucose Collection Time: 08/07/24 7:23 PM Result Value Ref Range Glucose, POC 144 70 - 199 mg/dL CBC without differential Collection Time: 08/07/24 10:28 PM Result Value Ref Range WBC 7.0 3.8 - 9.9 K/cumm Hgb 7.5 (L) 13.0 - 17.5 g/dL Hct 23.7 (L) 38.9 - 50.3 % Plt 197 150 - 400 K/cumm MPV 8.9 (L) 9.1 - 12.3 fL RBC 2.96 (L) 4.30 - 5.80 M/cumm MCV 80.1 (L) 81.3 - 96.4 fL MCH 25.3 (L) 27.1 - 33.3 pg MCHC 31.6 (L) 32.3 - 35.7 g/dL RDW CV 16.0 (H) 11.1 - 14.9 % RDW SD 46.5 35.7 - 48.1 fL NRBC abs 0.00 0.00 - 0.01 K/cumm Basic metabolic panel Collection Time: 08/07/24 10:28 PM Result Value Ref Range Sodium 135 135 - 145 mmol/L Potassium, pl 3.4 3.3 - 4.9 mmol/L Chloride 99 97 - 110 mmol/L CO2 27 22 - 32 mmol/L Anion gap 9 2 - 15 mmol/L BUN 24 6 - 25 mg/dL Creatinine 1.01 0.80 - 1.30 mg/dL Glucose 113 70 - 199 mg/dL Calcium 8.3 (L) 8.5 - 10.3 mg/dL Magnesium Collection Time: 08/07/24 10:28 PM Result Value Ref Range Magnesium 1.8 1.4 - 2.5 mg/dL Phosphorus Collection Time: 08/07/24 10:28 PM Result Value Ref Range Phosphorus, pl 2.8 2.3 - 4.5 mg/dL eGFR Collection Time: 08/07/24 10:28 PM Result Value Ref Range eGFR 79 >=60 mL/min/1.73 m2 POCT glucose Collection Time: 08/08/24 7:37 AM Result Value Ref Range Glucose, POC 104 70 - 199 mg/dL ASSESSMENT/PLAN DM2 (diabetes mellitus, type 2) ([facility]) Assessment & Plan - Home regimen: Lantus 90 units - 9/ A1C 7.5 - Lantus 35 units + SSI Complete heart block (CMS/HCC) ([facility]) Assessment & Plan EP consulted S/P PPM placed on 08/04 Wires out Continue telemetry montioring Bradycardia Assessment & Plan S/P PPM placed on 08/04 Wires out Continue telemetry montioring Coronary artery disease due to calcified coronary lesion Assessment & Plan S/p CABG x3 with sternal plating PT/OT- recs for rehab - Aspirin, statin, plavix daily - Imdur daily - Resumed home coreg dose - Will resume home Entresto as tolerated Aggressive Pulmonary toilet Wires and tubes out Seroquel started in ICU, weaning dose today Bianka Gallagher NP 08/08/2024 Cosigned by Leonor Quan MD at 08/08/2024 11:40 AM CDT * Bonnie Farr, OT - 08/08/2024 10:31 AM CDT Occupational Therapy Evaluation Note NOTE: This is a summary note of the barreto components of the evaluation session. For full details, review chart for all flowsheets documented on by this occupational therapy clinician on this date. Vital signs are documented in vital signs flowsheet. For questions, please review the treatment team and contact the occupational therapist currently assigned to this patient. If an occupational therapist is not assigned to this patient, please call [phone]. 08/08/24 1031 General Chart Reviewed Yes Session Type Re-Evaluation OT Received On 08/08/24 Safe Environment Arm band checked;Patient found in supine;Session completed bedside;Gait belt not utilized, see comment Subjective Agreeable to Therapy Occupational Therapy-Patient Goal Pt continues to be agreeable to OT plan of care. Precautions Precautions Cardiac sternal;Pacemaker;Fall risk Precaution Comments Reviewed pacemaker and sternal precautions. Pt verbalized understanding but would benefit from reinforcement. Home Living Type of Home House Home Layout One level Home Access Stairs to enter with rails Entrance Stairs-Rails Left Entrance Stairs-Number of Steps 2 Bathroom Toilet Standard Home Mobility Equipment-Available Wheeled walker Home Mobility Equipment-Currently Using Single point cane Prior Function Level of [place] Independent with ADLs;Independent functional transfers;Independent with ambulation;Needs assistance with ADLs Lives With Son Receives Help From Family (son, FT) Fall within the last 6 months No ADL ADLS (WDL) X Grooming Grooming: Where assessed Chair Grooming: Level of assistance Moderate Assist (setup task, total A balance) LE Dressing LE Dressing: Where assessed Supine, bed LE Dressing: Level of assistance Maximum Assist LE Dressing: Assistance with Don/doff R sock;Don/doff L sock;Thread RLE into pants;Thread LLE into pants;Thread RLE into underwear;Thread LLE into underwear;Pull up over hips;Fasteners (able to reach ankles for pulling up socks) Toileting Toileting: Where assessed Chair Toileting: Level of assistance Maximum Assist Toileting: Assistance with Clothing management up;Clothing management down;Posterior;Anterior Toilet Transfers Toilet Transfer From Chair with arms Toilet Transfer Type To Toilet Transfer to Standard bedside commode Toilet Transfer Technique Stand and Step Toilet Transfer: Equipment Hand hold Toilet Transfers Minimal assistance Toilet Transfers Comments Min A for force production and steadying assist Pain Assessment Pain Assessment 0-10 Pain Score 3 Patient's Stated Pain Goal No pain Pain Type Surgical pain Pain Location Generalized Pain Interventions RN Notified (NAVIN Bell) Activity Tolerance Activity Tolerance Comments PRETTY: LBD, hard Cognition Arousal/Alertness Alert;Appropriate responses to stimuli Attention Span Appears intact Current communication Appears Intact Orientation Oriented X4 (person, place, time, situation) Following Commands Follows all commands and directions without difficulty Safety Judgment Decreased awareness of need for assistance Awareness of Errors Decreased awareness of errors Insight Decreased awareness of deficits Problem Solving Assistance required to identify errors made;Assistance required to implement solutions;Assistance required to generate solutions Compliance/Behavior Easy to engage Perseveration Not present Balance Balance Yes Static Sitting Balance Static Sitting-Balance Support No upper extremity supported;Feet supported Static Sitting-Sitting Surface Bed Static Sitting-Level of Assistance Close supervision Static Sitting-Comment/# of Minutes SPV for safety Static Standing Balance Static Standing-Balance Support Bilateral upper extremity supported Static Standing-Standing Surface Floor Static Standing-Level of Assistance Minimum assistance Static Standing-Comment/# of Minutes Min A for steadying assist Bed Mobility Bed Mobility Yes Bed Mobility 1 Bed Mobility From 1 Supine Bed Mobility Type 1 To Bed Mobility to 1 Edge of bed Level of Assistance 1 Minimum Assist Bed Mobility Comments 1 Min A for trunk elevation Transfers Transfer Yes Transfer 1 Transfer From 1 Sit Transfer Type 1 To and from Transfer to 1 Stand Technique 1 Sit to stand;Stand to sit Transfer Device 1 No device Transfer Level of Assistance 1 Minimum Assist Trials/Comments 1 Min A for force production and steadying assist, verbal cues for hand placement and sequencing Transfers 2 Transfer From 2 Bed Transfer Type 2 To Transfer to 2 Chair with arms Technique 2 Stand and step Transfer Device 2 Hand held assist Transfer Level of Assistance 2 Minimum Assist Trials/Comments 2 Min A for force production and steadying assist, verbal cues for hand placement and sequencing Daily Activity - 6 Clicks Putting on and taking off regular lower body clothing 2 Bathing 2 Toileting 2 Putting on and taking off upper body clothing 3 Personal Grooming 2 Eating Meals 3 Total Score (range 6-24) 14 Score Interpretation 33.39 Safe Environment End of Therapy Session Safe Environment End of Therapy Session RN notified;Call light within reach;Overbed table within reach (Pt left sitting on commode) Assessment Problem List Decreased endurance;Decreased balance;Decreased functional mobility;Decreased ADL independence;Decreased IADL independence;Decreased cognition;Decreased safe judgment during ADL;Decreased upper extremity strength;Decreased upper extremity range of motion;Decreased frequency/variety of movement;Decreased trunk control for functional activities;Decreased sensation Barriers to Discharge Current Mobility Status;Current ADL Status;Cognition;Decreased safety awareness Barrier Comments fall risk Plan Plan Continue with current plan;If this is the last note, consider this the discharge summary Recommendation/Plan OT Recommendation Inpatient Rehab Facility Patient at high risk for Falls;Readmission;Injury due to decreased ability to care for self;Injury due to reduced functional status;Injury due to impaired cognition;Injury due to balance deficits;Injury at home as patient has not returned to prior level of function;Developing impaired skin integrity;Cognitive decline due to decreased social participation;Mismanagement of medications;Prolonged dependence for self care tasks;Developing secondary complications: poor health management Recommend Inpatient Rehab/Acute Rehab due to Ability to actively participate in intensive therapy 3hours/day, 5 days/week or 900 minutes per week;Highly motivated to participate in therapy;Not at baseline due to impaired ability to complete ADLs;Impaired ability to complete functional mobility;Likely to return to the community at discharge with support system in place;Requires greater than 25% physical assistance with most mobility tasks;Requires greater than 25% physical assistance with most ADL tasks;Requires multiple therapy disciplines to address functional deficits;Patient and caregiverrequire specialized skilled training due to new level of function/diagnosis OT Frequency during current admission 3-5x/wk Treatment/Interventions during current admission ADL/IADL retraining;Balance Training;Bed mobility;Compensatory technique education;Endurance training;Functional activity;Functional mobility training;Functional transfer training;Therapeutic activity;Therapeutic exercise;Transfer training OT - Next Appointment 08/10/24 OT Evaluation Complete Yes Time Calculation Start Time 1031 Stop Time 1111 Time Calculation (min) 40 min Multi-Disciplinary Problems (from Occupational Therapy) Active Problems Problem: Dressings Lower Extremities Start Date: 07/27/24 Goal Start Date Expected End Date End Date STG - Patient to complete lower body dressing with supervision. 07/27/24 08/10/24 -- Problem: Grooming Start Date: 07/27/24 Goal Start Date Expected End Date End Date STG - Patient will complete grooming standing at the sink with supervision. 07/27/24 08/10/24 -- Problem: Toileting Start Date: 07/27/24 Goal Start Date Expected End Date End Date STG - Patient will complete toileting tasks with supervision. 07/27/24 08/10/24 -- Problem: Transfers Start Date: 07/27/24 Goal Start Date Expected End Date End Date STG - Patient will perform toilet transfer to standard toilet with supervision. 07/27/24 08/10/24 -- Problem: OT Misc Start Date: 07/27/24 Goal Start Date Expected End Date End Date OT LTG - Patient will demonstrate modified independence/independence with ADL task completion. 07/27/24 08/26/24 -- Problem: Dressing Upper Extremities Start Date: 08/08/24 Goal Start Date Expected End Date End Date STG - Patient will don shirt - Pullover or Button with SPV while maintaining pacemaker precautions 08/08/24 08/22/24 -- * Lizette Stallworth RD - 08/07/2024 12:43 PM CDT NUTRITION ASSESSMENT Nutrition Status: Patient does not meet ASPEN criteria for malnutrition at this time. REASON FOR ASSESSMENT: Follow Up Encounter Date: 08/07/24 12:43 PM Admission Date: 07/24/2024 LOS: 14 days HPI: Patient is a 74 y.o. male with hx of CAD s/p CABG x3 and Sternal Plating (08/03). 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 Objective Past Medical History: Diagnosis Date Asthma Diabetes mellitus (HCC) GERD (gastroesophageal reflux disease) HH (hiatus hernia) Hypertension Sleep apnea pt uses CPAP machine nightly Past Surgical History: Procedure Laterality Date KIDNEY SURGERY 1960 MULTIPLE TOOTH EXTRACTIONS TOTAL KNEE ARTHROPLASTY Left 2017 TOTAL KNEE ARTHROPLASTY Right 2019 Social History Tobacco Use Smoking status: Former Current packs/day: 0.00 Average packs/day: 1.5 packs/day for 19.6 years (29.4 ttl pk-yrs) Types: Cigarettes Start date: 1960 Quit date: 06/11/1980 Years since quittin.1 Passive exposure: Past Smokeless tobacco: Never Substance and Sexual Activity Drug use: Not Currently Sexual activity: Defer Alcohol Use: Not At Risk (07/24/2024) AUDIT-C Frequency of Alcohol Consumption: Monthly or less Average Number of Drinks: 1 or 2 Frequency of Binge Drinking: Never MEDICATION/LAB REVIEW: Scheduled Meds: acetaminophen, 1,000 mg, oral, Q6H HILDA aspirin, 81 mg, oral, Daily atorvastatin, 40 mg, oral, Daily carvediloL, 3.125 mg, oral, BID with meals (bkfst, dinner) clopidogreL, 75 mg, oral, Daily DULoxetine DR, 60 mg, oral, Nightly insulin glargine, 35 Units, subcutaneous, QAM insulin lispro, 0-10 Units, subcutaneous, TID with meals insulin lispro, 0-5 Units, subcutaneous, Nightly isosorbide mononitrate ER, 15 mg, oral, Daily methocarbamoL, 500 mg, oral, TID pantoprazole DR, 40 mg, oral, Daily QUEtiapine, 50 mg, oral, Nightly Continuous Infusions: PRN Meds: dextrose OR dextrose glucagon ondansetron oxyCODONE Recent Labs Lab Units 08/06/24203808/05/24 21408/04/248 SODIUM mmol/L 135 136 139 POTASSIUM PLASMA mmol/L 3.3 3.0* 4.5 CHLORIDE mmol/L 96* 99 101 CO2 mmol/L 27 28 25 BUN SERUM mg/dL 25 30* 33* CREATININE mg/dL 1.01 1.09 1.10 [id number] mL/min/1.73 m2 79 72 71 CALCIUM mg/dL 8.5 8.5 8.5 PHOSPHORUS PLASMA mg/dL 3.3 3.6 4.4 MAGNESIUM mg/dL 2.0 2.0 2.1 Recent Labs Lab Units 08/07/24 1153 08/07/24 0745 08/06/24203808/06/24202108/06/24 1632 08/06/24 1215 08/06/24 0751 GLUCOSE mg/dL -- -- 87 -- -- -- -- POC GLUCOSE MONITOR mg/dL 142 129 -- 101 171 198 148 No results found for: ALT , AST , BILIRUBIN , ALKPHOS , LIPASE Lab Results Component Value Date HDL 26 (L) 07/24/2024 LDLCALC 56 07/24/2024 CHOL 101 07/24/2024 TRIG 93 07/24/2024 TRIG 100 07/24/2024 NURSING ASSESSMENT: Last BM Date: 08/03/24 Bowel Sounds (All Quadrants): Present Naresh Scale Score: 19 Skin Integrity: Surgical incision Edema: Trace Minute Ventilation (L/min): 7.2 L/min Vital Signs BP: 118/67 Temp: 36.3 ??C (97.3 ??F) Pulse: 84 Resp: 18 SpO2: 96 % Intake/Output Summary (Last 24 hours) at 08/07/2024 1243 Last data filed at 08/07/2024 1157 Gross per 24 hour Intake 240 ml Output 1500 ml Net -1260 ml Adult Malnutrition Scoring Tool (MST) What diet do you follow at home?: Consistent Carbohydrate Have You Recently Lost Weight Without Trying?: No Have you been eating poorly because of a decreased appetite?: No Malnutrition Screening Tool (MST) Score: 0 Hunger Screen - Admission Within the past 12 months the food we bought just didn't last and we didn't have money to get more.: Never true Within the past 12 months we worried whether our food would run out before we got money to buy more.: Never true Anthropometrics Weight: 94.4 kg (208 lb 1.8 oz) Admission Weight : 111.1 kg Weight Change: 0.05 kg (0.11 lbs) IBW/kg (Calculated) : 75.3 kg Height: 177.8 cm (5' 10 ) Weight in (lb) to have BMI = 25: 173.9 BMI (Calculated): 29.9 Wt Readings from Last 10 Encounters: 08/07/24 94.4 kg (208 lb 1.8 oz) 07/14/24 110.2 kg (242 lb 15.2 oz) 06/23/20 113.4 kg (250 lb) ESTIMATED NEEDS: Total Kcal/kg Estimated Needs : 1855.8 Kcal/k. Type of Weight Used for Estimated Kcals: Current Total Protein Estimated Needs (gm): 90.36 Protein Needs Based on g/k.2 Type of Weight Used for Estimated Protein : [place] Total Fluid Estimated Needs: 1882.5 Fluid Needs Based on : 25 ml/kg Type of Weight Used for Estimated Fluid Needs: [place] Dietary Orders (From admission, onward) Start Ordered 08/07/24 1700 Oral Nutrition Supplements ([facility]) Select Supplement: Glucerna Shake - [place] With Breakfast and Dinner Question: ([facility]) Select Supplement: Answer: Glucerna Shake - [place] 08/07/24 1240 08/04/24 1658 Adult Diet Restricted; Mechanical Soft; Regular Liquid Diet effective now Question Answer Comment ([facility]) Diet type Restricted Modified Consistency: Mechanical Soft Fluid Consistency: Regular Liquid 08/04/24 1657 Allergies: Reviewed, NKFA IMPRESSION: Pt reports his appetite and po intake have been improving but still only eating ~50% of meals. Notes the soft foods taste bad. He is not drinking the Glucerna d/t dislike, had chocolate flavor on orders. RD encouraged supplement intake since pt is only eating 50% of meals. He wants to try strawberry. No n/v. +constipation, last BM 08/03. Not on bowel regimen, would order one. Pt has been getting weighed via bed scale and is -41 lbs in 1.5 weeks. Some may be r/t fluid losses, net I/O since admit -14,736 mL. No edema noted yet today. Not on diuretics. Labs reviewed. BG controlled with insulin and SSI. A1c 7.5% (07/14/24). Surgical sites present. ASPEN MALNUTRITION ASSESSMENT: Date of completion: 07/31 NUTRITION FOCUSED PHYSICAL EXAM: Not clinically indicated, no concerns for malnutrition at this time. NUTRITION DIAGNOSIS: Nutrition Diagnosis 1: Inadequate oral intake Related to: Acute illness/injury, Loss of appetite Evidenced by: Patient interview INTERVENTION(S): Summary: Communication, Encouragement, Medical food supplement Encourage po intake >75% of meals Glucerna BID - strawberry Discussed importance of kcal/protein intake for post-op healing Recommend regular wts via standing scale GOAL(S): Adequate nutrition to meet estimated needs by next assessment, Advance to oral intake as medically able, Oral intake to meet 75% estimated nutritional needs by next assessment MONITORING/EVALUATION: Appetite, Blood glucoses, Diet advancement, Electrolyte changes, Hydration status, Labs, PO intake,Stool patterns, Supplement tolerance, Swallow function, Weight changes Rehana Stallworth MS, RD, LD [facility] [phone] On-call/weekend: [phone] * Va Griffith NP - 08/07/2024 12:19 PM CDT Cardiac Surgery Daily Progress 07/24 CABG x 3 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 Interval History: States he is eating a little better every day. Started coreg yesterday, jdwell. Will plan to add Entresto today or tomorrow. Discharge to [place] rehab when bed available. OBJECTIVE Current Facility-Administered Medications: acetaminophen (TYLENOL) tablet 1,000 mg, 1,000 mg, oral, Q6H [facility], Dwain Torres MD, 1,000mg at 08/07/24 1218 aspirin chewable tablet 81 mg, 81 mg, oral, Daily, Asya Brandon MD, 81 mg at 08/07/24 0857 atorvastatin (LIPITOR) tablet 40 mg, 40 mg, oral, Daily, Asya Brandon MD, 40 mg at 08/07/24 0859 carvediloL (COREG) tablet 3.125 mg, 3.125 mg, oral, BID with meals (bkfst, dinner), Va Griffith NP, 3.125 mg at 08/07/24 0857 clopidogreL (PLAVIX) tablet 75 mg, 75 mg, oral, Daily, Asya Brandon MD, 75 mg at 08/07/24 0858 dextrose gel in packet 15 g, 15 g, oral, Q15 Min PRN OR dextrose (D10W) 10% bolus 250 mL, 250 mL, intravenous, Q15 Min PRN, Asya Brandon MD DULoxetine (CYMBALTA) extended release capsule 60 mg, 60 mg, oral, Nightly, Asya Brandon MD, 60 mg at 08/06/242026 glucagon injection 1 mg, 1 mg, intramuscular, Q30 Min PRN, Asya Brandon MD insulin glargine (LANTUS, SEMGLEE) 100 unit/mL injection 35 Units, 35 Units, subcutaneous, DAVINA, Mayi Richardson NP, 35 Units at 08/07/24 0859 insulin lispro (HumaLOG, ADMELOG) 100 unit/mL injection 0-10 Units, 0-10 Units, subcutaneous, TID with meals, Asya Brandon MD, 2 Units at 08/06/24 172 insulin lispro (HumaLOG, ADMELOG) 100 unit/mL injection 0-5 Units, 0-5 Units, subcutaneous, Nightly, Asya Brandon MD, 1 Units at 07/31/242025 isosorbide mononitrate ER (IMDUR) extended release tablet 15 mg, 15 mg, oral, Daily, Asya Brandon MD, 15 mg at 08/07/24 0857 methocarbamoL (ROBAXIN) tablet 500 mg, 500 mg, oral, TID, Asya Brandon MD, 500 mg at 08/07/24 0858 ondansetron (ZOFRAN) injection 4 mg, 4 mg, intravenous, Q6H PRN, Asya Brandon MD oxyCODONE (ROXICODONE) tablet 5 mg, 5 mg, oral, Q4H PRN, Asya Brandon MD, 5 mg at 08/07/[address] (PROTONIX) extended release tablet 40 mg, 40 mg, oral, Daily, Asya Brandon MD, 40 mgat 08/07/24 0858 QUEtiapine (SEROquel) tablet 50 mg, 50 mg, oral, Nightly, Nacho, Va Medeiros NP Vitals: 24hr Min/Max: Temp Min: 36.2 ??C (97.2 ??F) Max: 36.5 ??C (97.7 ??F) Pulse Min: 65 Max: 86 BP Min: 91/76 Max: 118/67 Resp Min: 18 Max: 20 SpO2 Min: 96 % Max: 97 % Most Recent : Vitals: 08/07/24 1155 BP: 118/67 Pulse: 84 Resp: 18 Temp: 36.3 ??C (97.3 ??F) SpO2: 96% I/O last 2 completed shifts: In: 240 [P.O.:240] Out: 850 [Urine:850] I/O this shift: In: - Out: 650 [Urine:650] Physical Exam: Physical Exam Vitals reviewed. Constitutional: Appearance: Normal appearance. HENT: Head: Normocephalic. Eyes: Conjunctiva/sclera: Conjunctivae normal. Cardiovascular: Rate and Rhythm: Normal rate and regular rhythm. Pulses: Normal pulses. Comments: NSR 65-80s Pulmonary: Effort: Pulmonary effort is normal. No respiratory distress. Breath sounds: Normal breath sounds. No wheezing. Comments: On room air Abdominal: General: Bowel sounds are normal. There is no distension. Palpations: Abdomen is soft. Tenderness: There is no abdominal tenderness. Comments: BM 3 days ago Passing gas, no nausea Musculoskeletal: General: Normal range of motion. Right lower leg: No edema. Left lower leg: No edema. Comments: Trace BLE edema Skin: General: Skin is warm and dry. Comments: Sternal incision well approximated with prineo dressing intact Former chest tube sites open to air, well healing L chest PPM site well approximated with steri strips L arm incision well approximated, no redness or drainage R leg SVG site w/ wound glue Neurological: General: No focal deficit present. Mental Status: He is alert and oriented to person, place, and time. Psychiatric: Mood and Affect: Mood normal. Behavior: Behavior normal. Lab/Radiology/Diagnostic Review: Laboratory review: Lab results in the last 24 hours: Recent Results (from the past 24 hour(s)) POCT glucose Collection Time: 08/06/24 4:32 PM Result Value Ref Range Glucose, POC 171 70 - 199 mg/dL POCT glucose Collection Time: 08/06/24 8:22 PM Result Value Ref Range Glucose, POC 101 70 - 199 mg/dL CBC without differential Collection Time: 08/06/24 8:39 PM Result Value Ref Range WBC 7.9 3.8 - 9.9 K/cumm Hgb 7.8 (L) 13.0 - 17.5 g/dL Hct 24.4 (L) 38.9 - 50.3 % Plt 214 150 - 400 K/cumm MPV 9.4 9.1 - 12.3 fL RBC 3.04 (L) 4.30 - 5.80 M/cumm MCV 80.3 (L) 81.3 - 96.4 fL MCH 25.7 (L) 27.1 - 33.3 pg MCHC 32.0 (L) 32.3 - 35.7 g/dL RDW CV 16.0 (H) 11.1 - 14.9 % RDW SD 46.3 35.7 - 48.1 fL NRBC abs 0.00 0.00 - 0.01 K/cumm Basic metabolic panel Collection Time: 08/06/24 8:39 PM Result Value Ref Range Sodium 135 135 - 145 mmol/L Potassium, pl 3.3 3.3 - 4.9 mmol/L Chloride 96 (L) 97 - 110 mmol/L CO2 27 22 - 32 mmol/L Anion gap 12 2 - 15 mmol/L BUN 25 6 - 25 mg/dL Creatinine 1.01 0.80 - 1.30 mg/dL Glucose 87 70 - 199 mg/dL Calcium 8.5 8.5 - 10.3 mg/dL Magnesium Collection Time: 08/06/24 8:39 PM Result Value Ref Range Magnesium 2.0 1.4 - 2.5 mg/dL Phosphorus Collection Time: 08/06/24 8:39 PM Result Value Ref Range Phosphorus, pl 3.3 2.3 - 4.5 mg/dL eGFR Collection Time: 08/06/24 8:39 PM Result Value Ref Range eGFR 79 >=60 mL/min/1.73 m2 POCT glucose Collection Time: 08/07/24 7:45 AM Result Value Ref Range Glucose, POC 129 70 - 199 mg/dL POCT glucose Collection Time: 08/07/24 11:53 AM Result Value Ref Range Glucose, POC 142 70 - 199 mg/dL ASSESSMENT/PLAN DM2 (diabetes mellitus, type 2) ([facility]) Assessment & Plan - Home regimen: Lantus 90 units - 9/ A1C 7.5 - Lantus 35 units + SSI Complete heart block (CMS/HCC) ([facility]) Assessment & Plan EP consulted S/P PPM placed on 08/04 Wires out Continue telemetry montioring Bradycardia Assessment & Plan S/P PPM placed on 08/04 Wires out Continue telemetry montioring Coronary artery disease due to calcified coronary lesion Assessment & Plan S/p CABG x3 with sternal plating PT/OT- recs for rehab - Aspirin, statin, plavix daily - Imdur daily - Resumed home coreg dose - Will resume home Entresto as tolerated Aggressive Pulmonary toilet Wires and tubes out Seroquel started in ICU, weaning dose today Va Griffith NP 08/07/2024 Cosigned by Leonor Quan MD at 08/07/2024 1:40 PM CDT * Va Griffith NP - 08/06/2024 10:45 AM CDT Cardiac Surgery Daily Progress 07/24 CABG x 3 08/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 Interval History: Wires out yesterday. Supplemental K given overnight and this morning. Up in chair, feels tired again today. Will need rehab recs sent. OBJECTIVE Current Facility-Administered Medications: acetaminophen (TYLENOL) tablet 1,000 mg, 1,000 mg, oral, Q6H Melissa STEVENS Maxwell Craig, MD, 1,000mg at 08/06/24 0004 aspirin chewable tablet 81 mg, 81 mg, oral, Daily, Asya Brandon MD, 81 mg at 08/06/24 0940 atorvastatin (LIPITOR) tablet 40 mg, 40 mg, oral, Daily, Asya Brandon MD, 40 mg at 08/06/24 0940 clopidogreL (PLAVIX) tablet 75 mg, 75 mg, oral, Daily, Asya Brandon MD, 75 mg at 08/06/24 0940 dextrose gel in packet 15 g, 15 g, oral, Q15 Min PRN OR dextrose (D10W) 10% bolus 250 mL, 250 mL, intravenous, Q15 Min PRN, Asya Brandon MD DULoxetine DR (CYMBALTA) extended release capsule 60 mg, 60 mg, oral, Nightly, Asya Brandon MD, 60 mg at 08/05/243 glucagon injection 1 mg, 1 mg, intramuscular, Q30 Min PRN, Asya Brandon MD insulin glargine (LANTUS, SEMGLEE) 100 unit/mL injection 35 Units, 35 Units, subcutaneous, QAM, Debra, Mayi Fritz NP, 35 Units at 08/06/24 0940 insulin lispro (HumaLOG, ADMELOG) 100 unit/mL injection 0-10 Units, 0-10 Units, subcutaneous, TID with meals, Asya Brandon MD, 2 Units at 08/05/24 1729 insulin lispro (HumaLOG, ADMELOG) 100 unit/mL injection 0-5 Units, 0-5 Units, subcutaneous, Nightly, Asya Brandon MD, 1 Units at 07/31/242025 isosorbide mononitrate ER (IMDUR) extended release tablet 15 mg, 15 mg, oral, Daily, Asya Brandon MD, 15 mg at 08/06/24 0940 methocarbamoL (ROBAXIN) tablet 500 mg, 500 mg, oral, TID, Asya Brandon MD, 500 mg at 08/06/24 0940 ondansetron (ZOFRAN) injection 4 mg, 4 mg, intravenous, Q6H PRN, Asya Brandon MD oxyCODONE (ROXICODONE) tablet 5 mg, 5 mg, oral, Q4H PRN, Asya Brandon MD, 5 mg at 08/06/[address] (PROTONIX) extended release tablet 40 mg, 40 mg, oral, Daily, Asya Brandon MD, 40 mgat 08/06/24 0940 potassium chloride ER (KLOR-CON) extended release tablet 20 mEq, 20 mEq, oral, Once, Nacho, Va Medeiros NP QUEtiapine (SEROquel) tablet 100 mg, 100 mg, oral, Nightly, Asya Brandon MD, 100 mg at 08/05/242131 Vitals: 24hr Min/Max: Temp Min: 36.5 ??C (97.7 ??F) Max: 36.9 ??C (98.4 ??F) Pulse Min: 71 Max: 80 BP Min: 108/58 Max: 126/63 Resp Min: 18 Max: 21 SpO2 Min: 95 % Max: 99 % Most Recent : Vitals: 08/06/24827 BP: 125/70 Pulse: 80 Resp: Temp: SpO2: I/O last 2 completed shifts: In: - Out: 1150 [Urine:1150] No intake/output data recorded. Physical Exam: Physical Exam Vitals reviewed. Constitutional: Appearance: Normal appearance. HENT: Head: Normocephalic. Eyes: Conjunctiva/sclera: Conjunctivae normal. Cardiovascular: Rate and Rhythm: Normal rate and regular rhythm. Pulses: Normal pulses. Comments: NSR 70s Pulmonary: Effort: Pulmonary effort is normal. No respiratory distress. Breath sounds: Normal breath sounds. No wheezing. Comments: On room air Abdominal: General: Bowel sounds are normal. There is no distension. Palpations: Abdomen is soft. Tenderness: There is no abdominal tenderness. Comments: BM 2 days ago Musculoskeletal: Right lower leg: Edema present. Left lower leg: Edema present. Comments: Trace BLE edema Skin: General: Skin is warm and dry. Comments: Sternal incision well approximated with prineo dressing intact Former chest tube sites open to air, well healing L chest PPM site well approximated with steri strips L arm incision well approximated, no redness or drainage R leg SVG site w/ wound glue Neurological: General: No focal deficit present. Mental Status: He is alert and oriented to person, place, and time. Psychiatric: Mood and Affect: Mood normal. Behavior: Behavior normal. Lab/Radiology/Diagnostic Review: Laboratory review: Lab results in the last 24 hours: Recent Results (from the past 24 hour(s)) POCT glucose Collection Time: 08/05/24 12:22 PM Result Value Ref Range Glucose, POC 130 70 - 199 mg/dL POCT glucose Collection Time: 08/05/24 3:55 PM Result Value Ref Range Glucose, POC 150 70 - 199 mg/dL POCT glucose Collection Time: 08/05/24 9:23 PM Result Value Ref Range Glucose, POC 136 70 - 199 mg/dL CBC without differential Collection Time: 08/05/24 9:41 PM Result Value Ref Range WBC 9.1 3.8 - 9.9 K/cumm Hgb 7.9 (L) 13.0 - 17.5 g/dL Hct 25.4 (L) 38.9 - 50.3 % Plt 238 150 - 400 K/cumm MPV 9.4 9.1 - 12.3 fL RBC 3.13 (L) 4.30 - 5.80 M/cumm MCV 81.2 (L) 81.3 - 96.4 fL MCH 25.2 (L) 27.1 - 33.3 pg MCHC 31.1 (L) 32.3 - 35.7 g/dL RDW CV 16.5 (H) 11.1 - 14.9 % RDW SD 48.0 35.7 - 48.1 fL NRBC abs 0.03 (H) 0.00 - 0.01 K/cumm Basic metabolic panel Collection Time: 08/05/24 9:41 PM Result Value Ref Range Sodium 136 135 - 145 mmol/L Potassium, pl 3.0 (L) 3.3 - 4.9 mmol/L Chloride 99 97 - 110 mmol/L CO2 28 22 - 32 mmol/L Anion gap 9 2 - 15 mmol/L BUN 30 (H) 6 - 25 mg/dL Creatinine 1.09 0.80 - 1.30 mg/dL Glucose 114 70 - 199 mg/dL Calcium 8.5 8.5 - 10.3 mg/dL Magnesium Collection Time: 08/05/24 9:41 PM Result Value Ref Range Magnesium 2.0 1.4 - 2.5 mg/dL Phosphorus Collection Time: 08/05/24 9:41 PM Result Value Ref Range Phosphorus, pl 3.6 2.3 - 4.5 mg/dL Type and screen Collection Time: 08/05/24 9:41 PM Result Value Ref Range Janell, indirect Negative ABO Rh O Positive eGFR Collection Time: 08/05/24 9:41 PM Result Value Ref Range eGFR 72 >=60 mL/min/1.73 m2 POCT glucose Collection Time: 08/06/24 7:51 AM Result Value Ref Range Glucose, POC 148 70 - 199 mg/dL Potassium, whole blood Collection Time: 08/06/24 9:59 AM Result Value Ref Range Potassium, bld 3.6 3.3 - 4.9 mmol/L ASSESSMENT/PLAN DM2 (diabetes mellitus, type 2) ([facility]) Assessment & Plan - Home regimen: Lantus 90 units - 07/14 A1C 7.5 - Lantus 35 units + SSI Complete heart block (CMS/HCC) ([facility]) Assessment & Plan EP consulted S/P PPM placed on 08/04 Wires out Continue telemetry montioring Bradycardia Assessment & Plan S/P PPM placed on 08/04 DC temporary pacing wires today Continue telemetry montioring Coronary artery disease due to calcified coronary lesion Assessment & Plan S/p CABG x3 with sternal plating PT/OT - Aspirin, statin, plavix daily - Imdur daily - Holding GDMT in the acute setting Aggressive Pulmonary toilet Wires and tubes out Va Griffith NP 08/06/2024 Cosigned by Leonor Quan MD at 08/06/2024 9:55 PM CDT * Rachel Rodriguez, PT - 08/06/2024 7:56 AM CDT Physical Therapy Progress Note NOTE: This is a summary note of the barreto components of the treatment session. For full details, review chart for all flowsheets documented on by this physical therapy clinician on this date. Vital signs documented in vital signs flowsheet. Care plan progress documented in Care Plan Activity. For questions, please review the treatment team and contact the PT or APPLIANCE ASSEMBLER currently assigned to this patient. If a physical therapy clinician is not assigned to this patient, please call [phone]. 08/06/24 0756 PT Last Visit Session Type Treatment PT Received On 08/06/24 Safe Environment Arm band checked;Patient found in supine;Session completed bedside;Gait belt utilized for all out of bed mobility (used low on abdomen) Subjective Agreeable to Therapy Family/Caregiver Present No Precautions Precautions Cardiac sternal;Fall risk;Pacemaker Precaution Handout Issued Yes Precaution Comments education provided on precautions. Pt. verbalizes understanding but requires frequent cues to maintain precautions with mobility Activity Tolerance Activity Tolerance Comments pretty hard Pain Assessment Pain Assessment 0-10 Pain Score 5 - Moderate pain Pain Location Generalized Clinical Progression Gradually improving Pain Interventions (Pt. reports he got pain meds this morning and pain is improving) Cognition Orientation Oriented X4 (person, place, time, situation) Static Sitting Balance Static Sitting-Balance Support No upper extremity supported;Feet supported Static Sitting-Sitting Surface Bed Static Sitting-Level of Assistance Close supervision Dynamic Sitting Balance Dynamic Sitting-Balance Support No upper extremity supported;Feet supported Dynamic Sitting-Balance Forward lean;Lateral lean;Reaching for objects Dynamic Sitting-Sitting Surface Bed;Chair Dynamic Sitting-Level of Assistance Minimum assistance Static Standing Balance Static Standing-Balance Support Bilateral upper extremity supported Static Standing-Standing Surface Floor Static Standing-Level of Assistance Moderate assistance Static Standing-Comment/# of Minutes posterior lean Dynamic Standing Balance Dynamic Standing-Balance Support Bilateral upper extremity supported Dynamic Standing-Balance Lateral lean;Forward lean Dynamic Standing-Standing Surface Floor Dynamic Standing-Level of Assistance Moderate assistance Dynamic Standing-Comments posterior and lateral LOBs Supine Supine-Exercise Comments supine ther ex for LE strengthening and improve flexibility to progress transfers: ankle DF, PF, SAQ with 3 sec hold x 10 reps each Equipment Use Equipment Use Comments patient with bilateral LE neuropathy. Educaiton provided on importance of footwear. PT donned hard soled house slippers per patient preference. Education provided on recommendation for tennis shoes. PT locates them in the room. Bed Mobility 1 Bed Mobility From 1 Supine Bed Mobility Type 1 To Bed Mobility to 1 Edge of bed Level of Assistance 1 Moderate Assist Bed Mobility Comments 1 assist for trunk elevation and hip scooting to EOB, verbal, visual, tactilecues for postiioning, precautions, and technique Transfer 1 Transfer From 1 Sit Transfer Type 1 To and from Transfer to 1 Stand Transfer Device 1 No device Transfer Level of Assistance 1 Moderate Assist Trials/Comments 1 x 5 trials, posterior lean noted, lateral LOBs noted, verbal/visual/tactile cues for positioning and technique,(x 3 trials without device, x 2 trials with WW) improved posterior lean with subsequent trials Transfers 2 Transfer From 2 Bed;Chair with arms Transfer Type 2 To and from Transfer to 2 Chair with arms;Commode-standard Technique 2 Stand and step Transfer Device 2 Hand held assist Transfer Level of Assistance 2 Moderate Assist Trials/Comments 2 lateral LOBs, bed to chair, chair <> commode, verbal and visual cues for positioning and safe technique Basic Mobility - 6 Click How much difficulty does the patient have: Turning over in bed 2 How much difficulty does the patient currently have: Sitting down and standing up from a chair witharms? 2 How much difficulty does the patient have: Moving from lying on back to sitting on the side of the bed? 2 How much difficulty does the patient have: Moving to and from a bed to a chair including wheelchair? 2 How much help does the patient currently need: Walk in hospital room? 2 How much help from another person does the patient currently need: Climbing 3-5 steps with a railing? 1 Total 6 Click Score (range 6-24) 11 Score Interpretation 30.25 Safe Environment End of Therapy Session Safe Environment End of Therapy Session Patient left in recliner;RN notified;Call light within reach;Overbed table within reach Assessment Prognosis Good Problem List Gait deviations;Decreased strength;Impaired balance;Decreased mobility;Decreased endurance;Decreased range of motion Barriers to Discharge Current Mobility Status Plan Plan Continue with current plan;If this is the last note, consider this the discharge summary Recommendation/Plan PT Recommendation/Plan Inpatient Rehab Facility Patient at high risk for Falls;Readmission;Injury due to decreased ability to care for self Recommend Inpatient Rehab/Acute Rehab due to Ability to actively participate in intensive therapy 3hours/day, 5 days/week or 900 minutes per week;Highly motivated to participate in therapy;Not at baseline due to impaired ability to complete ADLs PT Frequency during current admission 3-5x/wk Treatment/Interventions during current admission Balance Training;Bed mobility;Endurance training;Functional activity Progress during current admission Progressing toward goals PT - Next Appointment 08/07/24 Time Calculation Start Time 0756 Stop Time 0837 Time Calculation (min) 41 min Multi-Disciplinary Problems (from Physical Therapy) Active Problems Problem: Mobility Start Date: 07/26/24 Goal Start Date Expected End Date End Date LTG - Patient will ambulate community distance 07/26/24 08/09/24 -- Goal Details: MOd I with SC Goal Start Date Expected End Date End Date STG - Patient will ambulate 07/26/24 08/09/24 -- Goal Details: 250ft, SBA LRAD Goal Start Date Expected End Date End Date STG - Patient will ascend and descend 2 stairs with the following level of assist: 07/26/24 08/09/24 -- Goal Details: SBA with HR Problem: Transfers Start Date: 07/26/24 Goal Start Date Expected End Date End Date STG - Patient will perform bed mobility 07/26/24 08/09/24 -- Goal Details: SBA Goal Start Date Expected End Date End Date STG - Patient will transfer sit to and from stand 07/26/24 08/09/24 -- Goal Details: SBA LRAD Problem: PT Misc Start Date: 07/26/24 Goal Start Date Expected End Date End Date PT STG - Misc 1 07/26/24 08/09/24 -- Goal Details: Patient and caregivers will participate in and demonstrate understanding of therapeutic exercise and safe mobility strategies to improve independence with functional mobility. * Mayi Richardson NP - 08/05/2024 4:05 PM CDT Cardiac Surgery Daily Progress 1 Day Post-Op SUBJECTIVE Chief complaint of no new complaints Interval History: DC temp pacing wires OBJECTIVE Current Facility-Administered Medications: acetaminophen (TYLENOL) tablet 1,000 mg, 1,000 mg, oral, Q6H [facility], Dwain Torres MD, 1,000mg at 08/05/24 1218 aspirin chewable tablet 81 mg, 81 mg, oral, Daily, Asya Brandon MD, 81 mg at 08/05/24 0912 atorvastatin (LIPITOR) tablet 40 mg, 40 mg, oral, Daily, Asya Brandon MD, 40 mg at 08/05/24912 clopidogreL (PLAVIX) tablet 75 mg, 75 mg, oral, Daily, Asya Brandon MD, 75 mg at 08/05/24912 dextrose gel in packet 15 g, 15 g, oral, Q15 Min PRN OR dextrose (D10W) 10% bolus 250 mL, 250 mL, intravenous, Q15 Min PRN, Asya Brandon MD DULoxetine DR (CYMBALTA) extended release capsule 60 mg, 60 mg, oral, Nightly, Asya Brandon MD, 60 mg at 08/04/242117 glucagon injection 1 mg, 1 mg, intramuscular, Q30 Min PRN, Asya Brandon MD [START ON 08/06/2024] insulin glargine (LANTUS, SEMGLEE) 100 unit/mL injection 35 Units, 35 Units, subcutaneous, QAM, Mayi Richardson, JUSTYN insulin lispro (HumaLOG, ADMELOG) 100 unit/mL injection 0-10 Units, 0-10 Units, subcutaneous, TID with meals, Asya Brandon MD, 2 Units at 08/03/24 1226 insulin lispro (HumaLOG, ADMELOG) 100 unit/mL injection 0-5 Units, 0-5 Units, subcutaneous, Nightly, Asya Brandon MD, 1 Units at 07/31/242025 isosorbide mononitrate ER (IMDUR) extended release tablet 15 mg, 15 mg, oral, Daily, Asya Brandon MD, 15 mg at 08/05/24 0913 methocarbamoL (ROBAXIN) tablet 500 mg, 500 mg, oral, TID, Asya Brandon MD, 500 mg at 08/05/24 1515 ondansetron (ZOFRAN) injection 4 mg, 4 mg, intravenous, Q6H PRN, Asya Brandon MD oxyCODONE (ROXICODONE) tablet 5 mg, 5 mg, oral, Q4H PRN, Asya Brandon MD, 5 mg at 08/05/[address] (PROTONIX) extended release tablet 40 mg, 40 mg, oral, Daily, Asya Brandon MD, 40 mgat 08/05/24 09 QUEtiapine (SEROquel) tablet 100 mg, 100 mg, oral, Nightly, Asya Brandon MD, 100 mg at 08/04/24 2118 Vitals: 24hr Min/Max: Temp Min: 36.3 ??C (97.4 ??F) Max: 36.9 ??C (98.4 ??F) Pulse Min: 71 Max: 81 BP Min: 95/52 Max: 126/63 Resp Min: 18 Max: 20 SpO2 Min: 95 % Max: 99 % Most Recent : Vitals: 08/05/24 1450 BP: 108/58 Pulse: 71 Resp: Temp: SpO2: 95% I/O last 2 completed shifts: In: 770.9 [I.V.:255.9; IV Piggyback:515] Out: 1770 [Urine:1750; Blood:20] I/O this shift: In: - Out: 350 [Urine:350] Physical Exam: Physical Exam Lab/Radiology/Diagnostic Review: Laboratory review: Lab results in the last 24 hours: Recent Results (from the past 24 hour(s)) POCT glucose Collection Time: 08/04/24 4:56 PM Result Value Ref Range Glucose, POC 110 70 - 199 mg/dL POCT glucose Collection Time: 08/04/24 8:22 PM Result Value Ref Range Glucose, POC 141 70 - 199 mg/dL CBC without differential Collection Time: 08/04/24 9:28 PM Result Value Ref Range WBC 10.7 (H) 3.8 - 9.9 K/cumm Hgb 7.9 (L) 13.0 - 17.5 g/dL Hct 25.1 (L) 38.9 - 50.3 % Plt 191 150 - 400 K/cumm MPV 9.8 9.1 - 12.3 fL RBC 3.07 (L) 4.30 - 5.80 M/cumm MCV 81.8 81.3 - 96.4 fL MCH 25.7 (L) 27.1 - 33.3 pg MCHC 31.5 (L) 32.3 - 35.7 g/dL RDW CV 16.5 (H) 11.1 - 14.9 % RDW SD 48.9 (H) 35.7 - 48.1 fL NRBC abs 0.04 (H) 0.00 - 0.01 K/cumm Basic metabolic panel Collection Time: 08/04/24 9:28 PM Result Value Ref Range Sodium 139 135 - 145 mmol/L Potassium, pl 4.5 3.3 - 4.9 mmol/L Chloride 101 97 - 110 mmol/L CO2 25 22 - 32 mmol/L Anion gap 13 2 - 15 mmol/L BUN 33 (H) 6 - 25 mg/dL Creatinine 1.10 0.80 - 1.30 mg/dL Glucose 114 70 - 199 mg/dL Calcium 8.5 8.5 - 10.3 mg/dL Magnesium Collection Time: 08/04/24 9:28 PM Result Value Ref Range Magnesium 2.1 1.4 - 2.5 mg/dL Phosphorus Collection Time: 08/04/24 9:28 PM Result Value Ref Range Phosphorus, pl 4.4 2.3 - 4.5 mg/dL eGFR Collection Time: 08/04/24 9:28 PM Result Value Ref Range eGFR 71 >=60 mL/min/1.73 m2 POCT glucose Collection Time: 08/05/24 8:34 AM Result Value Ref Range Glucose, POC 123 70 - 199 mg/dL POCT glucose Collection Time: 08/05/24 12:22 PM Result Value Ref Range Glucose, POC 130 70 - 199 mg/dL POCT glucose Collection Time: 08/05/24 3:55 PM Result Value Ref Range Glucose, POC 150 70 - 199 mg/dL ASSESSMENT/PLAN Complete heart block (CMS/HCC) (HCC) Assessment & Plan EP consulted S/P PPM placed on 08/04 DC temporary pacing wires today Continue telemetry montioring Bradycardia Assessment & Plan S/P PPM placed on 08/04 DC temporary pacing wires today Continue telemetry montioring Coronary artery disease due to calcified coronary lesion Assessment & Plan S/p CABG x3 with sternal plating PT/OT Aggressive Pulmonary toilet Dc temporary wires today Cts out Dc castro for void trial today Mayi Richardson NP 08/05/2024 Cosigned by Leonor Quan MD at 08/06/2024 8:13 AM CDT * Zelda Choudhary, PT - 08/05/2024 3:19 PM CDT Physical Therapy 08/05/24 1519 General PT Missed Visit Reason Bedrest;Other (comment) (S/p epicardial wire removal, bedrest until 1620.) * Leonor Fitch OT - 08/04/2024 10:13 AM CDT 08/04/24 1013 General OT Missed Visit Reason Procedure/testing/appointment (Off the floor for PPM/ICD placement. OT will continue to follow.) * Viry Soliman, PT - 08/04/2024 8:22 AM CDT Physical Therapy 08/04/24 0822 General PT Missed Visit Reason Procedure/testing/appointment (GIBRAN for PPM/ICD.) Recommendation/Plan PT - Next Appointment 08/05/24 * Shantal Elizabeth NP - 08/04/2024 7:15 AM CDTAssociated Order(s): Critical Care Post-Procedure Diagnose(s): Bradycardia CTICU Daily Progress Team: CTICU Blue 2 AM Subjective Abiel Fink is a 74 y.o. male admitted on 07/24/2024 6:02 AM with chief complaint of s/p CABGx3. PMH: HTN, HLD, CAD, moderate MR, 2nd degree AV block, asthma, JACQUELINE, pHTN, hepatic steatosis, GERD, hiatal hernia, DM2, pituitary adenoma. Abbreviated Hospital Course: 07/24: CABG x 3 [...] 2 and b/l chest tubes. Changed from GROVE SUPERINTENDENT to Epi. 07/25: Inhaled Veletri added for worsening RV dysfunction. 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 (DDD 60-100) - TTF Objective Physical Exam: General: No Acute Distress, sitting up in bed Neuro: A&Ox4, follows commands, LANDRUM, PERRL Cardiac: S1 and S2, Regular Rate and Rhythm, EPW DDD @ 100 Pulmonary: Lungs diminished to auscultation, respirations even/unlabored on RA Abdominal: Soft/Nontender/Nondistended, normoactive bowel sounds Extremities: No edema, Pulses Present and Palpable Drains: Castro Wounds: See RN flowsheet Vital signs for last 24 hours: Temp: [36.5 ??C (97.7 ??F)-37.1 ??C (98.7 ??F)] 36.6 ??C (97.8 ??F) Pulse: [100-106] 101 BP: (67-133)/(47-90) 86/65 Resp: [12-23] 17 SpO2: [97 %-100 %] 98 % Arterial Line BP: (58-122)/(45-86) 91/54 FiO2 (%): [21 %] 21 % Hemodynamics: MAP (mmHg): [61-97] 71 CVP: [2 mmHg-15 mmHg] 6 mmHg Pulmonary Support: O2 Therapy: None (Room air) O2 Del Method: CPAP/Bi-PAP mask FiO2 (%): 21 % O2 Flow Rate (L/min): 0 L/min FiO2 (%): 21 % Intake/Output: Intake/Output Summary (Last 24 hours) at 08/04/2024 0715 Last data filed at 08/04/2024 0600 Gross per 24 hour Intake 332 ml Output 1740 ml Net -1408 ml Lab/Radiology/Diagnostic Review: Laboratory review: Lab results in the last 12 hours: Recent Results (from the past 12 hour(s)) POCT glucose Collection Time: 08/03/24 8:28 PM Result Value Ref Range Glucose, POC 116 70 - 199 mg/dL CBC without differential Collection Time: 08/03/24 11:02 PM Result Value Ref Range WBC 12.3 (H) 3.8 - 9.9 K/cumm Hgb 7.7 (L) 13.0 - 17.5 g/dL Hct 23.7 (L) 38.9 - 50.3 % Plt 189 150 - 400 K/cumm MPV 9.8 9.1 - 12.3 fL RBC 2.88 (L) 4.30 - 5.80 M/cumm MCV 82.3 81.3 - 96.4 fL MCH 26.7 (L) 27.1 - 33.3 pg MCHC 32.5 32.3 - 35.7 g/dL RDW CV 16.4 (H) 11.1 - 14.9 % RDW SD 49.1 (H) 35.7 - 48.1 fL NRBC abs 0.06 (H) 0.00 - 0.01 K/cumm Basic metabolic panel Collection Time: 08/03/24 11:02 PM Result Value Ref Range Sodium 137 135 - 145 mmol/L Potassium, pl 4.3 3.3 - 4.9 mmol/L Chloride 105 97 - 110 mmol/L CO2 24 22 - 32 mmol/L Anion gap 8 2 - 15 mmol/L BUN 34 (H) 6 - 25 mg/dL Creatinine 1.15 0.80 - 1.30 mg/dL Glucose 110 70 - 199 mg/dL Calcium 8.8 8.5 - 10.3 mg/dL Magnesium Collection Time: 08/03/24 11:02 PM Result Value Ref Range Magnesium 2.1 1.4 - 2.5 mg/dL Phosphorus Collection Time: 08/03/24 11:02 PM Result Value Ref Range Phosphorus, pl 4.5 2.3 - 4.5 mg/dL Calcium, ionized Collection Time: 08/03/24 11:02 PM Result Value Ref Range Calcium, Ionized 4.59 4.50 - 5.10 mg/dL eGFR Collection Time: 08/03/24 11:02 PM Result Value Ref Range eGFR 68 >=60 mL/min/1.73 m2 POC Blood Gas and Chemistries, Venous - Collection Time: 08/04/24 4:13 AM Result Value Ref Range pH, Laurent POC 7.38 7.32 - 7.43 pCO2, laurent POC 42 40 - 50 mmHg pO2, laurent POC 44 mmHg Na, POC 137 135 - 145 mmol/L K POC 4.8 3.3 - 4.9 mmol/L Cl, POC 108 97 - 110 mmol/L Ionized Ca, POC 4.97 4.50 - 5.10 mg/dL Glucose, POC 106 70 - 199 mg/dL Lactate, POC 1.2 0.7 - 2.2 mmol/L O2 Sat, Laurent POC (Aliza) 68 % Base excess, POC -0.3 mmol/L HCO3, Laurent POC 25 20 - 30 mmol/L Hct, POC 25.0 (L) 41.4 - 51.6 % Total Hb, POC 8.3 (L) 13.8 - 17.2 g/dL Assessment/Plan Principal Problem: CAD, multiple vessel Active Problems: Coronary arteriosclerosis Coronary artery disease due to calcified coronary lesion Bradycardia Complete heart block (CMS/HCC) (HCC) Junctional escape rhythm Plan of care: Neurologic: #Acute pain - Scheduled methocarbamol (home med) - PRN oxycodone - Monitor for pain goal <4 #Anxiety, acute - PRN Atarax Overall CAM-ICU: Negative (08/03/241999) Cardiovascular: #CAD, chronic #Cardiogenic shock, POA - Resolved #Complete heart block - 07/24 s/p CABG x3 (BURGESS to LAD, left radial to OM, SVG to PDA) and sternal plating - Post CPB EMILE on GROVE SUPERINTENDENT 5 w/ mildly improved LV function (from 40-50% pre CPB), mild RV dysfunction 07/24 PM: Changed to Epi d/t low SVR and high pressor requirement 07/28: Veletri and Nitro gtt weaned off 07/29: Bumex gtt d/c 07/30: Epinephrine weaned off 07/31: CTS removed SWAN at bedside 08/01: MAP noted in low 60s-> Increased DDD to 100 ( DDD @90), - SBP goal > 95 - Aspirin, statin, plavix daily - Imdur daily - Holding GDMT in the acute setting - EPW DDD @ 100 (underlying rhythm CHB) - EP following, plan for PPM this week - CTS primary #HTN, chronic #HLD, chronic - Holding home carvedilol - Continue home statin Pulmonary: - Currently on RA - Pulm hygiene, SpO2 goal >92%, IS/VAP ppx, PT/OT #JACQUELINE, chronic - Home nocturnal CPAP - JACQUELINE precautions GI: - Diet: Mechanical soft, thin liquids - Bowel regimen: Senna (BM 08/03) #Dysphagia - Diet as above - [employer]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 #GERD, chronic - Continue home PPI Endocrine: #DM2, chronic - Home regimen: Lantus 90 units - 07/14 A1C 7.5 - Lantus 40 units + SSI Renal: #VITALY - Resolved #Azotemia - 2/2 Diuretic adminstration - BUN/Cr: 34/ 1.15 - Castro, strict I/O - Holding diuresis today - FBG even - Renal dose meds, avoid nephrotoxic agents, f/u BMP Hematology: #ABLA - 2/2 Cardiac surgery, phlebotomy - H&H: 7.7/ 23.7 - PLT: 189 - No s/s active bleeding, will continue to monitor closely, f/u CBC - DVT PPx: SCDs, SQH ID: #Leukocytosis, likely reactive - WBC: 12.3 - Afebrile - s/p Becca-op antibiotics - Continue to trend WBC, fever curve Intensive Care Unit Standards of Care: DVT prophylaxis: SCDs, SQH Vascular access: RIJ QLC (07/24), PIV Goals of care: Full code CTICU Blue 2 AM Assessment and plan has been reviewed with fellow and ICU attending, Dr. Sinclair. Shantal Elizabeth NP Critical Care Performed by: Shantal Elizabeth NP Authorized by: Shantal Elizabeth NP CRITICAL CARE: Team: 83 CTICU Shift: AM Level of Billing: Subsequent Hospital Visit Level 3 My time spent with this patient was 45 minutes: Critical Provider Statement: I have seen and examined the patient on this day of service. I have reviewed and confirmed the history, physical exam, laboratory, and radiographic data as documented in the ICU note. I have reviewed and discussed my treatment plan with the patient's team and other medical/systems consultant staff. This time was in addition to and separate from care provided by other practitioners on this day of service. I spent time reviewing and interpreting data from bedside monitors, laboratory results, and imaging, I spent time discussing the management of this critically ill patient with consultants and the medical staff and I spent time documenting in the medical record Cosigned by Feng Sinclair MD at 08/04/2024 4:40 PM CDT * Shnatal Elizabeth NP - 08/03/2024 7:13 AM CDTAssociated Order(s): Critical Care Post-Procedure Diagnose(s): Bradycardia CTICU Daily Progress Team: CTICU Blue 2 AM Subjective Abiel Fink is a 74 y.o. male admitted on 07/24/2024 6:02 AM with chief complaint of s/p CABGx3. PMH: HTN, HLD, CAD, moderate MR, 2nd degree AV block, asthma, JACQUELINE, pHTN, hepatic steatosis, GERD, hiatal hernia, DM2, pituitary adenoma. Abbreviated Hospital Course: 07/24: CABG x 3 [...] x 2 and b/l chest tubes. Changed fro m GROVE SUPERINTENDENT to Epi. 07/25: Inhaled Veletri added for worsening RV dysfunction. 07/26: Unable to wean Veletri d/t increasing PA pressures, Bumex gtt 07/27: Veletri wean, epi at 0.05 07/28: Veletri weaned off 07/29: Epi 0.02, chest/med tubes removed 07/29: Epi wean, bumex gtt dc'd, diamox x3 07/30: Epi off 07/31: Diamox x3 07/31: EP c/s, awaiting PPM Interval History: - TTE pending, per EP - NPO at midnight for possible PPM - Potassium repleted Objective Physical Exam: General: No Acute Distress, sitting up in bed Neuro: A&Ox4, follows commands, LANDRUM, PERRL Cardiac: S1 and S2, Regular Rate and Rhythm, EPW DDD @ 100 Pulmonary: Lungs diminished to auscultation, respirations even/unlabored on RA Abdominal: Soft/Nontender/Nondistended, normoactive bowel sounds Extremities: No edema, Pulses Present and Palpable Drains: Castro Wounds: See RN flowsheet Vital signs for last 24 hours: Temp: [36.9 ??C (98.5 ??F)-37.4 ??C (99.3 ??F)] 36.9 ??C (98.5 ??F) Pulse: [94-106] 103 BP: (120)/(75) 120/75 Resp: [16-39] 19 SpO2: [97 %-100 %] 100 % Arterial Line BP: (91-150)/(42-67) 113/55 FiO2 (%): [21 %] 21 % Hemodynamics: MAP (mmHg): [88] 88 CVP: [4 mmHg-14 mmHg] 14 mmHg Pulmonary Support: O2 Therapy: None (Room air) O2 Del Method: CPAP/Bi-PAP mask FiO2 (%): 21 % O2 Flow Rate (L/min): 0 L/min FiO2 (%): 21 % Intake/Output: Intake/Output Summary (Last 24 hours) at 08/03/2024 0714 Last data filed at 08/03/2024 0500 Gross per 24 hour Intake 972 ml Output 1585 ml Net -613 ml Lab/Radiology/Diagnostic Review: Laboratory review: Lab results in the last 12 hours: Recent Results (from the past 12 hour(s)) Potassium, whole blood Collection Time: 08/03/24 2:56 AM Result Value Ref Range Potassium, bld 3.9 3.3 - 4.9 mmol/L Urinalysis reflex to microscopic Collection Time: 08/03/24 5:01 AM Result Value Ref Range Color, ur Straw Yellow Clarity, ur Clear Clear Specific gravity, ur 1.015 1.003 - 1.030 pH, urine 6.0 Protein, ur ql Negative Negative Glucose, ur ql Negative Negative Ketones, ur Negative Negative Bilirubin, ur Negative Negative Blood, ur 3+ (A) Negative Urobilinogen, ur <2.0 <2.0 mg/dL Nitrite, ur Negative Negative Leukocyte esterase, ur 1+ (A) Negative UA reflex comment Reflex to microscopic UA will be performed. Urinalysis, microscopic only Collection Time: 08/03/24 5:01 AM Result Value Ref Range WBC, ur 6-10 (A) 0 - 5 /HPF RBC, ur >50 (A) 0 - 2 /HPF Epithelial cells, squamous, ur 1-5 0 - 5 /HPF Mucous, ur Present (A) Hyaline casts, ur 1-5 0 - 10 /LPF CBC without differential Collection Time: 08/03/24 5:09 AM Result Value Ref Range WBC 12.1 (H) 3.8 - 9.9 K/cumm Hgb 7.9 (L) 13.0 - 17.5 g/dL Hct 24.1 (L) 38.9 - 50.3 % Plt 189 150 - 400 K/cumm MPV 10.3 9.1 - 12.3 fL RBC 2.97 (L) 4.30 - 5.80 M/cumm MCV 81.1 (L) 81.3 - 96.4 fL MCH 26.6 (L) 27.1 - 33.3 pg MCHC 32.8 32.3 - 35.7 g/dL RDW CV 16.6 (H) 11.1 - 14.9 % RDW SD 48.1 35.7 - 48.1 fL NRBC abs 0.09 (H) 0.00 - 0.01 K/cumm Potassium, whole blood Collection Time: 08/03/24 5:15 AM Result Value Ref Range Potassium, bld 4.0 3.3 - 4.9 mmol/L POCT glucose Collection Time: 08/03/24 8:10 AM Result Value Ref Range Glucose, POC 152 70 - 199 mg/dL Potassium, whole blood Collection Time: 08/03/24 8:13 AM Result Value Ref Range Potassium, bld 3.7 3.3 - 4.9 mmol/L POCT glucose Collection Time: 08/03/24 12:25 PM Result Value Ref Range Glucose, POC 168 70 - 199 mg/dL Assessment/Plan Principal Problem: CAD, multiple vessel Active Problems: Coronary arteriosclerosis Coronary artery disease due to calcified coronary lesion Bradycardia Complete heart block (CMS/HCC) (HCC) Junctional escape rhythm Plan of care: Neurologic: #Acute pain - Scheduled methocarbamol (home med) - PRN oxycodone - Monitor for pain goal <4 #Anxiety, acute - PRN Atarax Overall CAM-ICU: Negative (08/02/24 1900) Cardiovascular: #CAD, chronic #Cardiogenic shock, POA - Resolved #Complete heart block - 07/24 s/p CABG x3 (BURGESS to LAD, left radial to OM, SVG to PDA) and sternal plating - Post CPB EMILE on GROVE SUPERINTENDENT 5 w/ mildly improved LV function (from 40-50% pre CPB), mild RV dysfunction 07/24 PM: Changed to Epi d/t low SVR and high pressor requirement 07/28: Veletri and Nitro gtt weaned off 07/29: Bumex gtt d/c 07/30: Epinephrine weaned off 07/31: CTS removed SWAN at bedside 08/01: MAP noted in low 60s-> Increased DDD to 100 ( DDD @90), - SBP goal > 95 - Aspirin, statin, plavix daily - Imdur daily - Holding GDMT in the acute setting - EPW DDD @ 100 (underlying rhythm CHB) - EP following, plan for PPM this week - CTS primary #HTN, chronic #HLD, chronic - Holding home carvedilol - Continue home statin Pulmonary: - Currently on RA - Pulm hygiene, SpO2 goal >92%, IS/VAP ppx, PT/OT #JACQUELINE, chronic - Home nocturnal CPAP - JACQUELINE precautions GI: - Diet: Mechanical soft, thin liquids - Bowel regimen: Senna (BM 08/03) #Dysphagia - Diet as above - [employer]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 #GERD, chronic - Continue home PPI Endocrine: #DM2, chronic - Home regimen: Lantus 90 units - 07/14 A1C 7.5 - Lantus 40 units + SSI Renal: #VITALY - Resolved #Azotemia - 2/2 Diuretic adminstration - BUN/Cr: 40/ 1.18 - Castro, strict I/O - Holding diuresis today - FBG even - Renal dose meds, avoid nephrotoxic agents, f/u BMP Hematology: #ABLA - 2/2 Cardiac surgery, phlebotomy - H&H: 7.9/ 24.1 - PLT: 189 - No s/s active bleeding, will continue to monitor closely, f/u CBC - DVT PPx: SCDs, SQH ID: #Leukocytosis, likely reactive - WBC: 12.1 - Afebrile - s/p Becca-op antibiotics - Continue to trend WBC, fever curve Intensive Care Unit Standards of Care: DVT prophylaxis: SCDs, SQH Vascular access: RIJ QLC (07/24), arterial line (07/24), PIV Goals of care: Full code CTICU Blue 2 AM Assessment and plan has been reviewed with fellow and ICU attending, Dr. Sinclair. Shantal Elizabeth NP Critical Care Performed by: Shantal Elizabeth NP Authorized by: Shantal Elizabeth NP CRITICAL CARE: Team: 83 CTICU Shift: AM Level of Billing: Critical Care My time spent with this patient was 90 minutes: Critical Provider Statement: I have seen and examined the patient on this day of service. I have reviewed and confirmed the history, physical exam, laboratory and radiologic data as documented in thesigned ICU note. I have reviewed and discussed my treatment plan with the ICU team and other medical/systems consultant staff, making frequent assessments and decisions regarding this patient's complex medical care. Critical Care time was exclusive of time spent performing separately billed procedures, treating other patients, and teaching. This time was in addition to and separate from critical care provided by other practitioners in my group on this day of service. Critical Care was necessary to treat or prevent imminent or life-threatening deterioration of the following conditions: I spent time reviewing and interpreting data from bedside monitors, laboratory results, and imaging, I spent time discussing the management of this critically ill patient with consultants and the medical staff and I spent time documenting in the medical record Cosigned by Feng Sinclair MD at 08/03/2024 5:45 PM CDT * Erin Hawkins NP - 08/02/2024 7:40 PM CDTAssociated Order(s): Critical Care Post-Procedure Diagnose(s): Bradycardia CT ICU Daily Progress Shifts: NPP Shift Options: 8300 PM 2 Subjective Patient is a 74 y.o. male admitted to the hospital on 07/24/2024 6:02 AM with/following: CAD s/p CABG Hospital course: 07/24: CABG x 3 (BURGESS to LAD, left radial to OM, SVG to PDA and sternal plating. Patient did have significant radial artery spasm, treated with papaverine and nitroglycerin. Prior to the case, patientwith known RV dysfunction. During EMILE, RV function improved with MAPs in the 80s, so levophed continued. OR totals: 1L crystalloid, 1 unit PRBC, 1 unit FFP, 1 unit PLT. A and V wires placed. MCT x 2 and bilateral chest tubes. Changed from GROVE SUPERINTENDENT to Epi. 07/25: Inhaled Veletri added for worsening RV dysfunction. 07/26: Unable to wean Veletri d/t increasing PA pressures 07/27: Veletri wean, epi at 0.05 07/28: Veletri weaned off Objective MEDICATIONS: SCHEDULED MEDS CONTINUOUS MEDS PRN MEDS aspirin, 81 mg, oral, Daily atorvastatin, 40 mg, oral, Daily clopidogreL, 75 mg, oral, Daily DULoxetine DR, 60 mg, oral, Nightly heparin, 5,000 Units, subcutaneous, Q8H HILDA insulin glargine, 40 Units, subcutaneous, QAM insulin lispro, 0-10 Units, subcutaneous, TID with meals insulin lispro, 0-5 Units, subcutaneous, Nightly isosorbide mononitrate ER, 15 mg, oral, Daily methocarbamoL, 500 mg, oral, TID pantoprazole DR, 40 mg, oral, Daily QUEtiapine, 100 mg, oral, Nightly senna, 1 tablet, oral, BID Lactated Ringer's, 10 mL/hr, Last Rate: Stopped (07/30/24 021) sodium chloride 0.9%, 3-12 mL/hr, Last Rate: 6 mL/hr (08/02/241899) dextrose OR dextrose glucagon hydrOXYzine ondansetron oxyCODONE potassium chloride Vitals: Temp: [36.7 ??C (98.1 ??F)-37.1 ??C (98.7 ??F)] 36.9 ??C (98.5 ??F) Pulse: [92-108] 103 BP: (120)/(75) 120/75 Resp: [16-39] 17 SpO2: [97 %-100 %] 97 % Arterial Line BP: (89-150)/(44-82) 104/49 FiO2 (%): [21 %] 21 % Fluid balance: I/O this shift: In: 6 [I.V.:6] Out: 100 [Urine:100] Intake/Output Summary (Last 24 hours) at 08/02/20241939 Last data filed at 08/02/20241899 Gross per 24 hour Intake 484 ml Output 2000 ml Net -1516 ml Ventilator settings: FiO2 (%): 21 % (08/020) Hemodynamic parameters: PAP: -- CVP: 5 mmHg (08/02 1900) PCWP: -- CO: -- CI: -- SVO2: -- Pacemaker Overdrive Pacing: -- Cardiac Rhythm: A-V Sequential paced (08/02 1800) Pacer Mode: -- Physical exam: Neuro: Alert, oriented, able to follow simple commands, PERRL 3mm, CAM (-) Cardiovascular: AV paced at 100, underlying CHB, epicardial wires set DDD 100, periphery warm with palpable pulses, no significant edema Pulmonary: Breath sounds clear to auscultation bilaterally, diminished bases, normal respiratory rate and effort GI: Abdomen soft, non-distended, bowel sounds active : Castro in place draining clear yellow urine Skin: Warm, dry, Sternal incision with OR dressing clean, dry, intact. 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 Laboratory data: Recent Labs Lab Units 08/01/24 2331 07/31/24 2316 07/30/24 2339 WBC K/cumm 8.3 5.6 4.0 HEMOGLOBIN g/dL 8.2* 7.4* 7.3* HEMATOCRIT % 25.5* 24.4* 23.5* PLATELETS K/cumm 154 121* 91* Recent Labs Lab Units 08/01/24 2331 07/31/24 2316 07/30/24 2339 SODIUM mmol/L 142 144 148* POTASSIUM PLASMA mmol/L 4.3 3.9 3.3 CHLORIDE mmol/L 106 109 109 CO2 mmol/L 22 25 30 BUN SERUM mg/dL 41* 46* 56* CREATININE mg/dL 1.11 1.06 1.20 CALCIUM mg/dL 8.9 8.1* 8.5 Recent Labs Lab Units 08/01/24 1704 07/31/24 0422 07/30/24 2339 PH ART 7.40 7.44 7.44 PCO2 ART mmHg 36 39 38 PO2 ART mmHg 98 114* 114* BASE EXC ART mmol/L -2 2 2 Diagnostic review (radiology / micro / other): Impression and Plan: Acute on chronic pain - Scheduled APAP - Home Robaxin TID - PRN oxycodone - Monitor pain Mood disorder, chronic - Continue home Cymbalta Anxiety, chronic -PRN Atarax ICU delirium - Seroquel 100 mg QPM - Delirium precautions CAD, chronic Cardiogenic shock, POA Pulmonary hypertension, POA CHB, underlying rhythm: s/p 07/24: CABG x3 (BURGESS to LAD, left radial to OM, SVG to PDA) and sternal plating Post CPB EMILE on GROVE SUPERINTENDENT 5 w/ mildly improved LV function (from 40-50% pre CPB), mild RV dysfunction 07/24 PM: Changed to Epi d/t low SVR and high pressor requirement 07/25: Epi increased d/t CI dropping to 1.9-2 and PA pressures increasing to 1/2 systemic. Inhaled Veletri also added w/ improvement in CI and reduction in PA pressures 07/28: Veletri and Nitro gtt weaned off 07/29: Bumex gtt stopped 07/30: Epinephrine weaned off 07/31: CTS removed SWAN at bedside 08/01: MAP noted in low 60s-> Increased DDD to 100 ( DDD @90), - SBP goal > 95 08/02: hold diuresis 2/2 neg 2.5 L in last 24 hrs - Aspirin, statin, plavix daily - Imdur daily - Holding GDMT in the acute setting - EPW DDD @ 100--> continue for now - EP following -> plan for PPM likely next week - CTS primary - NPO after midnight for possible PPM tomorrow, add-on case HTN, chronic HLD, chronic - Holding home carvedilol and Entresto - Continue home statin Acute pulmonary insufficiency Currently on RA - Aggressive diuresis as needed-> Bumex 1 mg + metolazone - Acapella, IS - Pulm hygiene, OOBTC, SpO2 goal >92%, PT/OT JACQUELINE, chronic - Home nocturnal CPAP - JACQUELINE precautions Dysphagia -Speech following - Diet: mechanical soft diet with thin liquids 07/31 - Bowel regimen: senna, last BM 08/01 GERD: chronic -Continue home PPI DM2, chronic A1C 7.5, Home regimen: 90 units Lantus - Lantus 40 units + SSI - Monitor glucose VITALY, improving BUN/Cr: 56/1.20-> 46/1.06-> 41/1.11 - Castro, strict I/O - FBG even - Renal dose meds, avoid nephrotoxic agents - Monitor BMP and electrolytes Hypernatremia Likely 2/2 diuresis resolved - Monitor BMP : ABLA, likely 2/2 surgery, labs Thrombocytopenia -No s/s bleeding, no indication for transfusion, continue to monitor closely -Monitor CBC Leukocytosis WBC increased to 11.4. Afebrile. - CBC daily Updates: Critical Care Performed by: Erin Hawkins, [employer] Authorized by: Erin Hawkins NP CRITICAL CARE: Team: 83 CTICU Shift: PM Level of Billing: Critical Care My time spent with this patient was 60 minutes: Critical Provider Statement: I have seen and examined the patient on this day of service. I have reviewed and confirmed the history, physical exam, laboratory and radiologic data as documented in thesigned ICU note. I have reviewed and discussed my treatment plan with the ICU team and other medical/systems consultant staff, making frequent assessments and decisions regarding this patient's complex medical care. Critical Care time was exclusive of time spent performing separately billed procedures, treating other patients, and teaching. This time was in addition to and separate from critical care provided by other practitioners in my group on this day of service. Critical Care was necessary to treat or prevent imminent or life-threatening deterioration of the following conditions: I spent time reviewing and interpreting data from bedside monitors, laboratory results, and imaging, I spent time discussing the management of this critically ill patient with consultants and the medical staff and I spent time documenting in the medical record Cosigned by Feng Sinclair MD at 08/03/2024 5:42 PM CDT * Zen Amaral - 08/02/2024 3:17 PM CDT Physical Therapy Physical Therapy Progress Note NOTE: This is a summary note of the barreto components of the treatment session. For full details, review chart for all flowsheets documented on by this physical therapy clinician on this date. Vital signs documented in vital signs flowsheet. Care plan progress documented in Care Plan Activity. For questions, please review the treatment team and contact the PT or APPLIANCE ASSEMBLER currently assigned to this patient. If a physical therapy clinician is not assigned to this patient, please call [phone]. 08/02/24 4488 PT Last Visit Session Type Treatment PT Received On 08/02/24 Safe Environment Arm band checked;Patient found sitting in chair;Gait belt not utilized, see comment Subjective Agreeable to Therapy Family/Caregiver Present No Precautions Precautions Fall risk;Cardiac sternal Precaution Handout Issued No Precaution Comments (Verbally reviewed) Activity Tolerance Activity Tolerance Comments Pt reports being very fatigued after activities Pain Assessment Pain Assessment No/denies pain Cognition Cognition Comments Pt speaks very briefly Arousal/Alertness Alert Orientation Oriented to place;Oriented to time;Oriented to situation;Able to orient when provided with multiple choice options Following Commands Follows all commands and directions without difficulty Compliance/Behavior Easy to engage Static Sitting Balance Static Sitting-Balance Support Bilateral upper extremity supported Static Sitting-Sitting Surface Bed Static Sitting-Level of Assistance Close supervision Static Standing Balance Static Standing-Balance Support Bilateral upper extremity supported Static Standing-Standing Surface Floor Static Standing-Level of Assistance Moderate assistance (x2) Static Standing-Comment/# of Minutes 10s of standing after last rep of Sit To Stand Bed Mobility 1 Bed Mobility From 1 Edge of bed Bed Mobility Type 1 To Bed Mobility to 1 Supine Level of Assistance 1 Moderate Assist;Maximal verbal cues;Maximal tactile cues (x2) Bed Mobility Comments 1 One provider for trunk and the other for legs Transfer 1 Transfer From 1 Sit Transfer Type 1 To Transfer to 1 Stand Technique 1 Sit to stand;Stand to sit Transfer Device 1 Hand held assist Transfer Level of Assistance 1 Moderate Assist;Maximal verbal cues;Maximal tactile cues (x2) Trials/Comments 1 x4 reps Transfers 2 Transfer From 2 Chair with arms Transfer Type 2 To Transfer to 2 Bed Technique 2 Stand and step Transfer Device 2 Hand held assist Transfer Level of Assistance 2 Moderate Assist;Maximal verbal cues;Maximal tactile cues (x2) Trials/Comments 2 Poor foot clearance Ambulation Ambulation No (Deferred due to safety/weakness) Stairs Stairs No Other Comments Other PT Comments Pt tolerated session on RA and VSS. Pt was orthostatic with each STS but SBP was allowed to recover to acceptable ranges prior to more activity. Will progress activity in future sessions to increase strength. Basic Mobility - 6 Click How much difficulty does the patient have: Turning over in bed 2 How much difficulty does the patient currently have: Sitting down and standing up from a chair witharms? 2 How much difficulty does the patient have: Moving from lying on back to sitting on the side of the bed? 2 How much difficulty does the patient have: Moving to and from a bed to a chair including wheelchair? 2 How much help does the patient currently need: Walk in hospital room? 2 How much help from another person does the patient currently need: Climbing 3-5 steps with a railing? 2 Total 6 Click Score (range 6-24) 12 Score Interpretation 32.23 Safe Environment End of Therapy Session Safe Environment End of Therapy Session Patient left supine in bed;RN notified;Call light within reach Assessment Prognosis Excellent Problem List Gait deviations;Impaired balance;Decreased strength;Decreased endurance;Decreased mobility;Edema Barriers to Discharge Current Mobility Status Plan Plan Continue with current plan;If this is the last note, consider this the discharge summary Recommendation/Plan PT Recommendation/Plan Inpatient Rehab Facility Patient at high risk for Falls;Readmission;Injury due to decreased ability to care for self;Injury due to reduced functional status;Injury due to balance deficits;Injury at home as patient has not returned to prior level of function;Prolonged dependence for self care tasks;Developing secondary compl ications: poor health management Recommend Inpatient Rehab/Acute Rehab due to Ability to actively participate in intensive therapy 3hours/day, 5 days/week or 900 minutes per week;Highly motivated to participate in therapy;Impaired ability to complete functional mobility;Likely to return to the community at discharge with support system in place;Requires greater than 25% physical assistance with most mobility tasks;Requires multiple therapy disciplines to address functional deficits PT Frequency during current admission 3-5x/wk Treatment/Interventions during current admission Balance Training;Bed mobility;Endurance training;Functional activity;Functional transfer training PT Equipment Recommended None Progress during current admission Progressing toward goals PT - Next Appointment 08/04/24 Time Calculation Start Time 1435 Stop Time 1517 Time Calculation (min) 42 min Multi-Disciplinary Problems (from Physical Therapy) Active Problems Problem: Mobility Start Date: 07/26/24 Goal Start Date Expected End Date End Date LTG - Patient will ambulate community distance 07/26/24 08/09/24 -- Goal Details: MOd I with SC Goal Start Date Expected End Date End Date STG - Patient will ambulate 07/26/24 08/09/24 -- Goal Details: 250ft, SBA LRAD Goal Start Date Expected End Date End Date STG - Patient will ascend and descend 2 stairs with the following level of assist: 07/26/24 08/09/24 -- Goal Details: SBA with HR Problem: Transfers Start Date: 07/26/24 Goal Start Date Expected End Date End Date STG - Patient will perform bed mobility 07/26/24 08/09/24 -- Goal Details: SBA Goal Start Date Expected End Date End Date STG - Patient will transfer sit to and from stand 07/26/24 08/09/24 -- Goal Details: SBA LRAD Problem: PT Misc Start Date: 07/26/24 Goal Start Date Expected End Date End Date PT STG - Misc 1 07/26/24 08/09/24 -- Goal Details: Patient and caregivers will participate in and demonstrate understanding of therapeutic exercise and safe mobility strategies to improve independence with functional mobility. Cosigned by Viry Soliman, PT at 08/02/2024 4:04 PM CDT * Mala Latif NP - 08/02/2024 6:00 AM CDTAssociated Order(s): Critical Care Post-Procedure Diagnose(s): Coronary artery disease, unspecified vessel or lesion type, unspecifiedwhether angina present, unspecified whether [facility] or transplanted heart Surgical ICU Daily Progress Team: 8200 AM 2 Subjective Patient is a 74 y.o. male admitted on 07/24/2024 6:02 AM with chief complaint of CAD s/p CABG. PMH: HTN, HLD, CAD, moderate MR, 2nd degree AV block, asthma, JACQUELINE, pHTN, hepatic steatosis, GERD, hiatal hernia, DM Type II (Hgb A1c7.5), pituitary adenoma, obesity Abbreviated Hospital Course: 07/24: CABG x 3 (BURGESS to LAD, left radial to OM, SVG to PDA and sternal plating. Patient did have significant radial artery spasm, treated with papaverine and nitroglycerin. Prior to the case, patientwith known RV dysfunction. During EMILE, RV function improved with MAPs in the 80s, so levophed continued. OR totals: 1L crystalloid, 1 unit PRBC, 1 unit FFP, 1 unit PLT. A and V wires placed. MCT x 2 and bilateral chest tubes. Changed from GROVE SUPERINTENDENT to Epi. 07/25: Inhaled Veletri added for worsening RV dysfunction. 07/26: Unable to wean Veletri d/t increasing PA pressures 07/27: Veletri wean, epi at 0.05 07/28: Veletri weaned off Interval History: - Hold diuresis - OOBTC - Kcl 40 meq IV X1 - per EP plan for PPM next week likely Objective Physical Exam: Neuro: AXO-3, FRANCOISE, FC, CVS: S1S2, RRR, 90% paced, hemodynamically stable unsupported PULM: CTA bilateral, RA , respirations even and non labored GI: Soft/NT/ND/normoactive BS : Castro-. Kavita UOP Extremities: No BLE edema, mild edema to LUE, pulses X4 palpable Drains: As above Wounds/Incisions: midline sternum with steri strips, left chest with steri strips, LUE with steri strips Medications Scheduled Meds:aspirin, 81 mg, oral, Daily atorvastatin, 40 mg, oral, Daily clopidogreL, 75 mg, oral, Daily DULoxetine DR, 60 mg, oral, Nightly heparin, 5,000 Units, subcutaneous, Q8H HILDA insulin glargine, 40 Units, subcutaneous, QAM insulin lispro, 0-10 Units, subcutaneous, TID with meals insulin lispro, 0-5 Units, subcutaneous, Nightly isosorbide mononitrate ER, 15 mg, oral, Daily methocarbamoL, 500 mg, oral, TID pantoprazole DR, 40 mg, oral, Daily QUEtiapine, 100 mg, oral, Nightly senna, 1 tablet, oral, BID Continuous Infusions:Lactated Ringer's, 10 mL/hr, Last Rate: Stopped (07/30/24 0213) sodium chloride 0.9%, 3-12 mL/hr, Last Rate: 6 mL/hr (08/02/24 1100) PRN Meds:. dextrose OR dextrose glucagon hydrOXYzine ondansetron oxyCODONE potassium chloride Vital signs for last 24 hours: Temp: [36.7 ??C (98.1 ??F)-37.1 ??C (98.7 ??F)] 37.1 ??C (98.7 ??F) Pulse: [92-108] 103 Resp: [15-21] 18 SpO2: [97 %-100 %] 99 % Arterial Line BP: (89-131)/(44-82) 109/57 FiO2 (%): [21 %] 21 % Hemodynamics: CVP: [0 mmHg-12 mmHg] 7 mmHg Pulmonary Support: O2 Therapy: None (Room air) O2 Del Method: CPAP/Bi-PAP mask FiO2 (%): 21 % O2 Flow Rate (L/min): 0 L/min FiO2 (%): 21 % Intake/Output: Intake/Output Summary (Last 24 hours) at 08/02/2024 1239 Last data filed at 08/02/2024 1100 Gross per 24 hour Intake 528 ml Output 2870 ml Net -2342 ml Lab/Radiology/Diagnostic Review: Laboratory review: Lab results in the last 12 hours: Recent Results (from the past 12 hour(s)) Potassium, whole blood Collection Time: 08/02/24 4:10 AM Result Value Ref Range Potassium, bld 3.8 3.3 - 4.9 mmol/L POCT glucose Collection Time: 08/02/24 7:52 AM Result Value Ref Range Glucose, POC 120 70 - 199 mg/dL Recent Results (from the past 48 hour(s)) POCT glucose Collection Time: 07/31/24 4:57 PM Result Value Ref Range Glucose, POC 130 70 - 199 mg/dL Potassium, whole blood Collection Time: 07/31/24 4:59 PM Result Value Ref Range Potassium, bld 3.4 3.3 - 4.9 mmol/L Potassium, whole blood Collection Time: 07/31/24 8:20 PM Result Value Ref Range Potassium, bld 3.6 3.3 - 4.9 mmol/L POCT glucose Collection Time: 07/31/24 8:20 PM Result Value Ref Range Glucose, POC 161 70 - 199 mg/dL CBC without differential Collection Time: 07/31/24 11:16 PM Result Value Ref Range WBC 5.6 3.8 - 9.9 K/cumm Hgb 7.4 (L) 13.0 - 17.5 g/dL Hct 24.4 (L) 38.9 - 50.3 % Plt 121 (L) 150 - 400 K/cumm MPV 10.5 9.1 - 12.3 fL RBC 2.86 (L) 4.30 - 5.80 M/cumm MCV 85.3 81.3 - 96.4 fL MCH 25.9 (L) 27.1 - 33.3 pg MCHC 30.3 (L) 32.3 - 35.7 g/dL RDW CV 16.5 (H) 11.1 - 14.9 % RDW SD 50.6 (H) 35.7 - 48.1 fL NRBC abs 0.10 (H) 0.00 - 0.01 K/cumm Basic metabolic panel Collection Time: 07/31/24 11:16 PM Result Value Ref Range Sodium 144 135 - 145 mmol/L Potassium, pl 3.9 3.3 - 4.9 mmol/L Chloride 109 97 - 110 mmol/L CO2 25 22 - 32 mmol/L Anion gap 10 2 - 15 mmol/L BUN 46 (H) 6 - 25 mg/dL Creatinine 1.06 0.80 - 1.30 mg/dL Glucose 119 70 - 199 mg/dL Calcium 8.1 (L) 8.5 - 10.3 mg/dL Magnesium Collection Time: 07/31/24 11:16 PM Result Value Ref Range Magnesium 2.1 1.4 - 2.5 mg/dL Phosphorus Collection Time: 07/31/24 11:16 PM Result Value Ref Range Phosphorus, pl 3.5 2.3 - 4.5 mg/dL Calcium, ionized Collection Time: 07/31/24 11:16 PM Result Value Ref Range Calcium, Ionized 4.63 4.50 - 5.10 mg/dL Potassium, whole blood Collection Time: 07/31/24 11:16 PM Result Value Ref Range Potassium, bld 3.6 3.3 - 4.9 mmol/L eGFR Collection Time: 07/31/24 11:16 PM Result Value Ref Range eGFR 75 >=60 mL/min/1.73 m2 Potassium, whole blood Collection Time: 08/01/24 5:24 AM Result Value Ref Range Potassium, bld 4.0 3.3 - 4.9 mmol/L POCT glucose Collection Time: 08/01/24 7:49 AM Result Value Ref Range Glucose, POC 97 70 - 199 mg/dL POCT glucose Collection Time: 08/01/24 11:54 AM Result Value Ref Range Glucose, POC 121 70 - 199 mg/dL Potassium, whole blood Collection Time: 08/01/24 4:22 PM Result Value Ref Range Potassium, bld 3.5 3.3 - 4.9 mmol/L POCT glucose Collection Time: 08/01/24 4:22 PM Result Value Ref Range Glucose, POC 127 70 - 199 mg/dL Blood gas, arterial Collection Time: 08/01/24 5:04 PM Result Value Ref Range pH, Art 7.40 7.35 - 7.45 PCO2, Arterial 36 35 - 45 mmHg PO2, Arterial 98 83 - 108 mmHg HCO3 Art (Calculated) 23 20 - 30 mmol/L BE, art -2 mmol/L O2 Sat Art (Measured) 98 (H) 90 - 95 % POCT glucose Collection Time: 08/01/24 8:23 PM Result Value Ref Range Glucose, POC 133 70 - 199 mg/dL Potassium, whole blood Collection Time: 08/01/24 8:24 PM Result Value Ref Range Potassium, bld 4.2 3.3 - 4.9 mmol/L CBC without differential Collection Time: 08/01/24 11:31 PM Result Value Ref Range WBC 8.3 3.8 - 9.9 K/cumm Hgb 8.2 (L) 13.0 - 17.5 g/dL Hct 25.5 (L) 38.9 - 50.3 % Plt 154 150 - 400 K/cumm MPV 10.7 9.1 - 12.3 fL RBC 3.07 (L) 4.30 - 5.80 M/cumm MCV 83.1 81.3 - 96.4 fL MCH 26.7 (L) 27.1 - 33.3 pg MCHC 32.2 (L) 32.3 - 35.7 g/dL RDW CV 16.2 (H) 11.1 - 14.9 % RDW SD 48.8 (H) 35.7 - 48.1 fL NRBC abs 0.09 (H) 0.00 - 0.01 K/cumm Basic metabolic panel Collection Time: 08/01/24 11:31 PM Result Value Ref Range Sodium 142 135 - 145 mmol/L Potassium, pl 4.3 3.3 - 4.9 mmol/L Chloride 106 97 - 110 mmol/L CO2 22 22 - 32 mmol/L Anion gap 14 2 - 15 mmol/L BUN 41 (H) 6 - 25 mg/dL Creatinine 1.11 0.80 - 1.30 mg/dL Glucose 123 70 - 199 mg/dL Calcium 8.9 8.5 - 10.3 mg/dL Magnesium Collection Time: 08/01/24 11:31 PM Result Value Ref Range Magnesium 2.1 1.4 - 2.5 mg/dL Phosphorus Collection Time: 08/01/24 11:31 PM Result Value Ref Range Phosphorus, pl 4.6 (H) 2.3 - 4.5 mg/dL Calcium, ionized Collection Time: 08/01/24 11:31 PM Result Value Ref Range Calcium, Ionized 4.40 (L) 4.50 - 5.10 mg/dL Potassium, whole blood Collection Time: 08/01/24 11:31 PM Result Value Ref Range Potassium, bld 4.1 3.3 - 4.9 mmol/L eGFR Collection Time: 08/01/24 11:31 PM Result Value Ref Range eGFR 71 >=60 mL/min/1.73 m2 Potassium, whole blood Collection Time: 08/02/24 4:10 AM Result Value Ref Range Potassium, bld 3.8 3.3 - 4.9 mmol/L POCT glucose Collection Time: 08/02/24 7:52 AM Result Value Ref Range Glucose, POC 120 70 - 199 mg/dL XR Chest 1 View Result Date: 07/29/2024 Median sternotomy plates are again seen. The right internal jugular [place] catheter tip is over the right ventricular outflow tract or main pulmonary artery. Persistence of apparent tight loop of the distal catheter proximal to the tip has persisted on multiple examinations since 07/24/2024 concerning for the possibility of a fixed nodule in the catheter. Right internal jugular central venous catheter tip at superior cavoatrial junction. Mediastinal drain, pericardial drain, bilateral chest tubes, and epicardial pacing wires again seen. Stable cardiomediastinal silhouette. Mild bibasilar atelectasis is similar to the prior study. Left lateral basilar haziness may be due to the atelectasis or small pleural effusion. No pulmonary edema, consolidation, or pneumothorax. The Critical results were discussed with JUSTYN Marin by Dr. Slade on 07/29/2024 at 0619. Electronically signed by: DavidS. Yany M.D. XR Chest 1 View Result Date: 07/28/2024 The current study is compared with the prior radiograph dated 07/26/2024 at 8:27 PM. Sternal fixation plates are aligned and intact. Pulmonary artery catheter projects over the right pulmonary artery. Pericardial, mediastinal, and bilateral thoracostomy drains are seen. A right internal jugular approach central venous catheter terminates at the superior vena cava. There is mildly increased left greater than right bibasilar atelectasis. There is trace pulmonary edema. There are no definite pleural effusions. There is no pneumothorax or pneumonia. The cardiac mediastinal silhouette is unchanged. Dictated by: Tone Olson M.D. The radiology attending physician has personally reviewed this study, and had reviewed and/or edited this written report and agrees with it. Electronically signed by:Serafin Terrell M.D. Assessment/Plan Principal Problem: CAD, multiple vessel Active Problems: Coronary arteriosclerosis Coronary artery disease due to calcified coronary lesion NEURO: #Acute on chronic pain - Scheduled APAP - Home Robaxin TID - PRN oxycodone - Monitor pain #Mood disorder, chronic - Continue home Cymbalta #Anxiety: -PRN Atarax #ICU delirium - Seroquel 100 mg QPM - Delirium precautions CV: #CAD, chronic #Cardiogenic shock, POA #Pulmonary hypertension, POA # CHB , underlying rhythm: - s/p 07/24: CABG x3 (BURGESS to LAD, left radial to OM, SVG to PDA) and sternal plating - Post CPB EMILE on GROVE SUPERINTENDENT 5 w/ mildly improved LV function (from 40-50% pre CPB), mild RV dysfunction - 07/24 PM: Changed to Epi d/t low SVR and high pressor requirement 07/25: Epi increased d/t CI dropping to 1.9-2 and PA pressures increasing to 1/2 systemic. Inhaled Veletri also added w/ improvement in CI and reduction in PA pressures - 07/28: Veletri and Nitro gtt weaned off - 07/29: Bumex gtt stopped - 07/30: Epinephrine weaned off - 07/31: CTS removed SWAN at bedside - 08/01: MAP noted in low 60s-> Increased DDD to 100 ( DDD @90), - SBP goal > 95 - 08/02: hold diuresis 2/2 neg 2.5 L in last 24 hrs - Aspirin, statin, plavix daily - Imdur daily - Holding GDMT in the acute setting - EPW DDD @ 100--> continue for now - EP following -> plan for PPM likely next week - CTS primary #HTN, chronic #HLD, chronic - Holding home carvedilol and Entresto - Continue home statin PULM: #Acute pulmonary insufficiency: - Currently on RA -Aggressive diuresis as needed-> Bumex 1 mg + metolazone -Acapella, IS - Pulm hygiene, OOBTC, SpO2 goal >92%, PT/OT #JACQUELINE, chronic - Home nocturnal CPAP - JACQUELINE precautions GI: #Dysphagia: -Speech following - Diet: mechanical soft diet with thin liquids 07/31 - Bowel regimen: senna, last BM 08/01 #GERD: chronic -Continue home PPI ENDO: #DM2, chronic - A1C 7.5 - Home regimen: 90 units Lantus - BG 130-> 120 - Lantus 40 units + SSI - Monitor glucose RENAL: #VITALY- improving - BUN/Cr: 56/1.20-> 46/1.06-> 41/1.11 - Hold diuresis as pt neg 2.5 L - Castro, strict I/O - FBG even - Renal dose meds, avoid nephrotoxic agents - Monitor BMP and electrolytes #Hypernatremia: likely 2/2 diuresis resolved -Na 152-->148-> 144-> 142 -Monitor BMP # electrolyte abnormality: - K 3.8-> Kcl 40 meq IV X 1 HEME: #ABLA: likely 2/2 surgery, labs #Thrombocytopenia: -H/H 7.3/23-> 7.4/24.4-> 8.2 /25.5 -Platelets 91-> 121 -> 154 -No s/s bleeding, no indication for transfusion, continue to monitor closely -Monitor CBC ID: - WBC 4-> 5.6-> 8.3 - afebrile - CTM WBC trend and fever curve Intensive Care Unit Standards of Care: DVT prophylaxis: SCDs, SQH Vascular access: R radial dorcas (07/24), RIJ QLC (07/24), PIV x1 Goals of care: Full code Updated pt regarding pt condition and plan of care Assessment and plan discussed with ICU attending/ICU fellow Mala Latif [facility]- Critical Care Performed by: Mala Latif NP Authorized by: Mala Latif NP CRITICAL CARE: Team: 83 CTICU Shift: AM Level of Billing: Critical Care My time spent with this patient was 90 minutes: Critical Provider Statement: I have seen and examined the patient on this day of service. I have reviewed and confirmed the history, physical exam, laboratory and radiologic data as documented in thesigned ICU note. I have reviewed and discussed my treatment plan with the ICU team and other medical/systems consultant staff, making frequent assessments and decisions regarding this patient's complex medical care. Critical Care time was exclusive of time spent performing separately billed procedures, treating other patients, and teaching. This time was in addition to and separate from critical care provided by other practitioners in my group on this day of service. Critical Care was necessary to treat or prevent imminent or life-threatening deterioration of the following conditions: I spent time reviewing and interpreting data from bedside monitors, laboratory results, and imaging, I spent time discussing the management of this critically ill patient with consultants and the medical staff and I spent time documenting in the medical record Cosigned by Fegn Sinclair MD at 08/03/2024 5:42 PM CDT * Brendon Quiroz MD - 08/01/2024 11:30 PM CDT Surgical ICU Daily Progress Team: 8200 Blue 2 PM Subjective Patient is a 74 y.o. male admitted on 07/24/2024 6:02 AM with chief complaint of CAD s/p CABG. PMH: HTN, HLD, CAD, moderate MR, 2nd degree AV block, asthma, JACQUELINE, pHTN, hepatic steatosis, GERD, hiatal hernia, DM Type II (Hgb A1c7.5), pituitary adenoma, obesity Abbreviated Hospital Course: 07/24: CABG x 3 (BURGESS to LAD, left radial to OM, SVG to PDA and sternal plating. Patient did have significant radial artery spasm, treated with papaverine and nitroglycerin. Prior to the case, patientwith known RV dysfunction. During EMILE, RV function improved with MAPs in the 80s, so levophed continued. OR totals: 1L crystalloid, 1 unit PRBC, 1 unit FFP, 1 unit PLT. A and V wires placed. MCT x 2 and bilateral chest tubes. Changed from GROVE SUPERINTENDENT to Epi. 07/25: Inhaled Veletri added for worsening RV dysfunction. 07/26: Unable to wean Veletri d/t increasing PA pressures 07/27: Veletri wean, epi at 0.05 07/28: Veletri weaned off Interval History: 08/01 PM: - NAEO - per EP note, likely Pacemaker next week Objective Physical Exam: Neuro: AXO-3, FRANCOISE, FC, sleeping CVS: S1S2, RRR, paced DDD at 100 PULM: CTA bilateral, RA , respirations even and non labored GI: Soft/NT/ND/normoactive BS : Castro-. Kavita UOP Extremities: No BLE edema, mild edema to LUE, pulses X4 palpable Drains: As above Wounds/Incisions: midline sternum with steri strips, left chest with steri strips, LUE with steri strips Medications Scheduled Meds:aspirin, 81 mg, oral, Daily atorvastatin, 40 mg, oral, Daily clopidogreL, 75 mg, oral, Daily DULoxetine DR, 60 mg, oral, Nightly heparin, 5,000 Units, subcutaneous, Q8H HILDA insulin glargine, 40 Units, subcutaneous, QAM insulin lispro, 0-10 Units, subcutaneous, TID with meals insulin lispro, 0-5 Units, subcutaneous, Nightly isosorbide mononitrate ER, 15 mg, oral, Daily methocarbamoL, 500 mg, oral, TID pantoprazole DR, 40 mg, oral, Daily QUEtiapine, 100 mg, oral, Nightly senna, 1 tablet, oral, BID Continuous Infusions:Lactated Ringer's, 10 mL/hr, Last Rate: Stopped (07/30/24 0213) sodium chloride 0.9%, 3-12 mL/hr, Last Rate: 6 mL/hr (08/02/24 0200) PRN Meds:. dextrose OR dextrose glucagon hydrOXYzine ondansetron oxyCODONE potassium chloride Vital signs for last 24 hours: Temp: [36.6 ??C (97.9 ??F)-36.9 ??C (98.5 ??F)] 36.9 ??C (98.4 ??F) Pulse: [90-107] 92 BP: (86)/(52) 86/52 Resp: [15-21] 19 SpO2: [98 %-100 %] 100 % Arterial Line BP: (89-131)/(44-59) 104/58 FiO2 (%): [21 %] 21 % Hemodynamics: MAP (mmHg): [62] 62 CVP: [0 mmHg-12 mmHg] 7 mmHg Pulmonary Support: O2 Therapy: None (Room air) O2 Del Method: CPAP/Bi-PAP mask FiO2 (%): 21 % O2 Flow Rate (L/min): 0 L/min FiO2 (%): 21 % Intake/Output: Intake/Output Summary (Last 24 hours) at 08/02/2024 0215 Last data filed at 08/02/2024 0200 Gross per 24 hour Intake 760 ml Output 3250 ml Net -2490 ml Lab/Radiology/Diagnostic Review: Laboratory review: Lab results in the last 12 hours: Recent Results (from the past 12 hour(s)) Potassium, whole blood Collection Time: 08/01/24 4:22 PM Result Value Ref Range Potassium, bld 3.5 3.3 - 4.9 mmol/L POCT glucose Collection Time: 08/01/24 4:22 PM Result Value Ref Range Glucose, POC 127 70 - 199 mg/dL Blood gas, arterial Collection Time: 08/01/24 5:04 PM Result Value Ref Range pH, Art 7.40 7.35 - 7.45 PCO2, Arterial 36 35 - 45 mmHg PO2, Arterial 98 83 - 108 mmHg HCO3 Art (Calculated) 23 20 - 30 mmol/L BE, art -2 mmol/L O2 Sat Art (Measured) 98 (H) 90 - 95 % POCT glucose Collection Time: 08/01/24 8:23 PM Result Value Ref Range Glucose, POC 133 70 - 199 mg/dL Potassium, whole blood Collection Time: 08/01/24 8:24 PM Result Value Ref Range Potassium, bld 4.2 3.3 - 4.9 mmol/L CBC without differential Collection Time: 08/01/24 11:31 PM Result Value Ref Range WBC 8.3 3.8 - 9.9 K/cumm Hgb 8.2 (L) 13.0 - 17.5 g/dL Hct 25.5 (L) 38.9 - 50.3 % Plt 154 150 - 400 K/cumm MPV 10.7 9.1 - 12.3 fL RBC 3.07 (L) 4.30 - 5.80 M/cumm MCV 83.1 81.3 - 96.4 fL MCH 26.7 (L) 27.1 - 33.3 pg MCHC 32.2 (L) 32.3 - 35.7 g/dL RDW CV 16.2 (H) 11.1 - 14.9 % RDW SD 48.8 (H) 35.7 - 48.1 fL NRBC abs 0.09 (H) 0.00 - 0.01 K/cumm Basic metabolic panel Collection Time: 08/01/24 11:31 PM Result Value Ref Range Sodium 142 135 - 145 mmol/L Potassium, pl 4.3 3.3 - 4.9 mmol/L Chloride 106 97 - 110 mmol/L CO2 22 22 - 32 mmol/L Anion gap 14 2 - 15 mmol/L BUN 41 (H) 6 - 25 mg/dL Creatinine 1.11 0.80 - 1.30 mg/dL Glucose 123 70 - 199 mg/dL Calcium 8.9 8.5 - 10.3 mg/dL Magnesium Collection Time: 08/01/24 11:31 PM Result Value Ref Range Magnesium 2.1 1.4 - 2.5 mg/dL Phosphorus Collection Time: 08/01/24 11:31 PM Result Value Ref Range Phosphorus, pl 4.6 (H) 2.3 - 4.5 mg/dL Calcium, ionized Collection Time: 08/01/24 11:31 PM Result Value Ref Range Calcium, Ionized 4.40 (L) 4.50 - 5.10 mg/dL Potassium, whole blood Collection Time: 08/01/24 11:31 PM Result Value Ref Range Potassium, bld 4.1 3.3 - 4.9 mmol/L eGFR Collection Time: 08/01/24 11:31 PM Result Value Ref Range eGFR 71 >=60 mL/min/1.73 m2 Recent Results (from the past 48 hour(s)) Potassium, whole blood Collection Time: 07/31/24 4:22 AM Result Value Ref Range Potassium, bld 3.5 3.3 - 4.9 mmol/L Oxyhemoglobin, pulmonary artery Collection Time: 07/31/24 4:22 AM Result Value Ref Range Oxyhemoglobin, PA 55.5 % Hemoglobin total, pulmonary artery Collection Time: 07/31/24 4:22 AM Result Value Ref Range Hemoglobin total, PA 8.1 (L) 13.0 - 17.5 g/dL Blood gas, arterial Collection Time: 07/31/24 4:22 AM Result Value Ref Range pH, Art 7.44 7.35 - 7.45 PCO2, Arterial 39 35 - 45 mmHg PO2, Arterial 114 (H) 83 - 108 mmHg HCO3 Art (Calculated) 27 20 - 30 mmol/L BE, art 2 mmol/L O2 Sat Art (Measured) 99 (H) 90 - 95 % POCT glucose Collection Time: 07/31/24 7:38 AM Result Value Ref Range Glucose, POC 121 70 - 199 mg/dL Potassium, whole blood Collection Time: 07/31/24 11:24 AM Result Value Ref Range Potassium, bld 3.5 3.3 - 4.9 mmol/L POCT glucose Collection Time: 07/31/24 11:24 AM Result Value Ref Range Glucose, POC 106 70 - 199 mg/dL POCT glucose Collection Time: 07/31/24 4:57 PM Result Value Ref Range Glucose, POC 130 70 - 199 mg/dL Potassium, whole blood Collection Time: 07/31/24 4:59 PM Result Value Ref Range Potassium, bld 3.4 3.3 - 4.9 mmol/L Potassium, whole blood Collection Time: 07/31/24 8:20 PM Result Value Ref Range Potassium, bld 3.6 3.3 - 4.9 mmol/L POCT glucose Collection Time: 07/31/24 8:20 PM Result Value Ref Range Glucose, POC 161 70 - 199 mg/dL CBC without differential Collection Time: 07/31/24 11:16 PM Result Value Ref Range WBC 5.6 3.8 - 9.9 K/cumm Hgb 7.4 (L) 13.0 - 17.5 g/dL Hct 24.4 (L) 38.9 - 50.3 % Plt 121 (L) 150 - 400 K/cumm MPV 10.5 9.1 - 12.3 fL RBC 2.86 (L) 4.30 - 5.80 M/cumm MCV 85.3 81.3 - 96.4 fL MCH 25.9 (L) 27.1 - 33.3 pg MCHC 30.3 (L) 32.3 - 35.7 g/dL RDW CV 16.5 (H) 11.1 - 14.9 % RDW SD 50.6 (H) 35.7 - 48.1 fL NRBC abs 0.10 (H) 0.00 - 0.01 K/cumm Basic metabolic panel Collection Time: 07/31/24 11:16 PM Result Value Ref Range Sodium 144 135 - 145 mmol/L Potassium, pl 3.9 3.3 - 4.9 mmol/L Chloride 109 97 - 110 mmol/L CO2 25 22 - 32 mmol/L Anion gap 10 2 - 15 mmol/L BUN 46 (H) 6 - 25 mg/dL Creatinine 1.06 0.80 - 1.30 mg/dL Glucose 119 70 - 199 mg/dL Calcium 8.1 (L) 8.5 - 10.3 mg/dL Magnesium Collection Time: 07/31/24 11:16 PM Result Value Ref Range Magnesium 2.1 1.4 - 2.5 mg/dL Phosphorus Collection Time: 07/31/24 11:16 PM Result Value Ref Range Phosphorus, pl 3.5 2.3 - 4.5 mg/dL Calcium, ionized Collection Time: 07/31/24 11:16 PM Result Value Ref Range Calcium, Ionized 4.63 4.50 - 5.10 mg/dL Potassium, whole blood Collection Time: 07/31/24 11:16 PM Result Value Ref Range Potassium, bld 3.6 3.3 - 4.9 mmol/L eGFR Collection Time: 07/31/24 11:16 PM Result Value Ref Range eGFR 75 >=60 mL/min/1.73 m2 Potassium, whole blood Collection Time: 08/01/24 5:24 AM Result Value Ref Range Potassium, bld 4.0 3.3 - 4.9 mmol/L POCT glucose Collection Time: 08/01/24 7:49 AM Result Value Ref Range Glucose, POC 97 70 - 199 mg/dL POCT glucose Collection Time: 08/01/24 11:54 AM Result Value Ref Range Glucose, POC 121 70 - 199 mg/dL Potassium, whole blood Collection Time: 08/01/24 4:22 PM Result Value Ref Range Potassium, bld 3.5 3.3 - 4.9 mmol/L POCT glucose Collection Time: 08/01/24 4:22 PM Result Value Ref Range Glucose, POC 127 70 - 199 mg/dL Blood gas, arterial Collection Time: 08/01/24 5:04 PM Result Value Ref Range pH, Art 7.40 7.35 - 7.45 PCO2, Arterial 36 35 - 45 mmHg PO2, Arterial 98 83 - 108 mmHg HCO3 Art (Calculated) 23 20 - 30 mmol/L BE, art -2 mmol/L O2 Sat Art (Measured) 98 (H) 90 - 95 % POCT glucose Collection Time: 08/01/24 8:23 PM Result Value Ref Range Glucose, POC 133 70 - 199 mg/dL Potassium, whole blood Collection Time: 08/01/24 8:24 PM Result Value Ref Range Potassium, bld 4.2 3.3 - 4.9 mmol/L CBC without differential Collection Time: 08/01/24 11:31 PM Result Value Ref Range WBC 8.3 3.8 - 9.9 K/cumm Hgb 8.2 (L) 13.0 - 17.5 g/dL Hct 25.5 (L) 38.9 - 50.3 % Plt 154 150 - 400 K/cumm MPV 10.7 9.1 - 12.3 fL RBC 3.07 (L) 4.30 - 5.80 M/cumm MCV 83.1 81.3 - 96.4 fL MCH 26.7 (L) 27.1 - 33.3 pg MCHC 32.2 (L) 32.3 - 35.7 g/dL RDW CV 16.2 (H) 11.1 - 14.9 % RDW SD 48.8 (H) 35.7 - 48.1 fL NRBC abs 0.09 (H) 0.00 - 0.01 K/cumm Basic metabolic panel Collection Time: 08/01/24 11:31 PM Result Value Ref Range Sodium 142 135 - 145 mmol/L Potassium, pl 4.3 3.3 - 4.9 mmol/L Chloride 106 97 - 110 mmol/L CO2 22 22 - 32 mmol/L Anion gap 14 2 - 15 mmol/L BUN 41 (H) 6 - 25 mg/dL Creatinine 1.11 0.80 - 1.30 mg/dL Glucose 123 70 - 199 mg/dL Calcium 8.9 8.5 - 10.3 mg/dL Magnesium Collection Time: 08/01/24 11:31 PM Result Value Ref Range Magnesium 2.1 1.4 - 2.5 mg/dL Phosphorus Collection Time: 08/01/24 11:31 PM Result Value Ref Range Phosphorus, pl 4.6 (H) 2.3 - 4.5 mg/dL Calcium, ionized Collection Time: 08/01/24 11:31 PM Result Value Ref Range Calcium, Ionized 4.40 (L) 4.50 - 5.10 mg/dL Potassium, whole blood Collection Time: 08/01/24 11:31 PM Result Value Ref Range Potassium, bld 4.1 3.3 - 4.9 mmol/L eGFR Collection Time: 08/01/24 11:31 PM Result Value Ref Range eGFR 71 >=60 mL/min/1.73 m2 XR Chest 1 View Result Date: 07/29/2024 Median sternotomy plates are again seen. The right internal jugular [facility] catheter tip is over the right ventricular outflow tract or main pulmonary artery. Persistence of apparent tight loop of the distal catheter proximal to the tip has persisted on multiple examinations since 07/24/2024 concerning for the possibility of a fixed nodule in the catheter. Right internal jugular central venous catheter tip at superior cavoatrial junction. Mediastinal drain, pericardial drain, bilateral chest tubes, and epicardial pacing wires again seen. Stable cardiomediastinal silhouette. Mild bibasilar atelectasis is similar to the prior study. Left lateral basilar haziness may be due to the atelectasis or small pleural effusion. No pulmonary edema, consolidation, or pneumothorax. The Critical results were discussed with JUSTYN Marin by Dr. Slade on 07/29/2024 at 0619. Electronically signed by: DavidS. Yany M.D. XR Chest 1 View Result Date: 07/28/2024 The current study is compared with the prior radiograph dated 07/26/2024 at 8:27 PM. Sternal fixation plates are aligned and intact. Pulmonary artery catheter projects over the right pulmonary artery. Pericardial, mediastinal, and bilateral thoracostomy drains are seen. A right internal jugular approach central venous catheter terminates at the superior vena cava. There is mildly increased left greater than right bibasilar atelectasis. There is trace pulmonary edema. There are no definite pleural effusions. There is no pneumothorax or pneumonia. The cardiac mediastinal silhouette is unchanged. Dictated by: Tone Olson M.D. The radiology attending physician has personally reviewed this study, and had reviewed and/or edited this written report and agrees with it. Electronically signed by:Serafin Terrell M.D. Assessment/Plan Principal Problem: CAD, multiple vessel Active Problems: Coronary arteriosclerosis Coronary artery disease due to calcified coronary lesion NEURO: #Acute on chronic pain - Scheduled APAP - Home Robaxin TID - PRN oxycodone - Dilaudid 0.2 X 1 - Monitor pain #Mood disorder, chronic - Continue home Cymbalta #Anxiety: -PRN Atarax #ICU delirium - Seroquel 100 mg QPM - Delirium precautions CV: #CAD, chronic #Cardiogenic shock, POA #Pulmonary hypertension, POA # CHB , underlying rhythm: - s/p 07/24: CABG x3 (BURGESS to LAD, left radial to OM, SVG to PDA) and sternal plating - Post CPB EMILE on GROVE SUPERINTENDENT 5 w/ mildly improved LV function (from 40-50% pre CPB), mild RV dysfunction - 07/24 PM: Changed to Epi d/t low SVR and high pressor requirement 07/25: Epi increased d/t CI dropping to 1.9-2 and PA pressures increasing to 1/2 systemic. Inhaled Veletri also added w/ improvement in CI and reduction in PA pressures - 07/28: Veletri and Nitro gtt weaned off - 07/30: Epinephrine weaned off - Bumex gtt stopped 07/29 - Aspirin, statin, plavix daily - Imdur daily - Holding GDMT in the acute setting - EPW DDD @ 100--> 07/31: per CTS underlying rhythm in 40s , decreased Pacer to DDD to 90 - 08/01: MAP noted in low 60s-> Increased DDD to 100 ( DDD @90), - SBP goal > 95 - EP following, likely Pacemaker next week - 07/31: CTS removed SWAN at bedside - CTS primary #HTN, chronic #HLD, chronic - Holding home carvedilol and Entresto - Continue home statin PULM: #Acute pulmonary insufficiency: - Currently on RA - Aggressive diuresis as needed-> Bumex 1 mg + metolazone -Acapella, IS - Pulm hygiene, SpO2 goal >92%, PT/OT #JACQUELINE, chronic - Home nocturnal CPAP - JACQUELINE precautions GI: #Dysphagia: -Speech following Diet: mechanical soft diet with thin liquids 07/31 Bowel regimen: senna> 4 X #GERD: chronic -Continue home PPI ENDO: #DM2, chronic - A1C 7.5 - Home regimen: 90 units Lantus - BG 160-> 90s - Lantus 40 units + SSI - Monitor glucose RENAL: #VITALY- improving - BUN/Cr: 56/1.20-> 46/1.06 - Ongoing diuresis - Castro, strict I/O - FBG neg 500 ml - Renal dose meds, avoid nephrotoxic agents - Monitor BMP and electrolytes #Hypernatremia: likely 2/2 diuresis resolved -Na 152-->148-> 144 -Monitor BMP HEME: #ABLA: likely 2/2 surgery, labs #Thrombocytopenia: -H/H 7.3/23-> 7.4/24.4 -Platelets 91-> 121 -No s/s bleeding, no indication for transfusion, continue to monitor closely -Monitor CBC ID: - WBC 4-> 5.6 - afebrile - CTM WBC trend and fever curve Intensive Care Unit Standards of Care: DVT prophylaxis: SCDs, SQH Vascular access: R radial dorcas (07/24), RIJ QLC (07/24), PIV x1 Goals of care: Full code Updated pt regarding pt condition and plan of care Above note reviewed by my attending physician. Co-sign to follow. Brendon Quiroz MD PGY-4 Anesthesiology Cosigned by Feng Sinclair MD at 08/03/2024 6:23 PM CDT * Mala Latif NP - 08/01/2024 6:00 AM CDTAssociated Order(s): Critical Care Post-Procedure Diagnose(s): Coronary artery disease, unspecified vessel or lesion type, unspecifiedwhether angina present, unspecified whether [facility] or transplanted heart Surgical ICU Daily Progress Team: 8200 AM 2 Subjective Patient is a 74 y.o. male admitted on 07/24/2024 6:02 AM with chief complaint of CAD s/p CABG. PMH: HTN, HLD, CAD, moderate MR, 2nd degree AV block, asthma, JACQUELINE, pHTN, hepatic steatosis, GERD, hiatal hernia, DM Type II (Hgb A1c7.5), pituitary adenoma, obesity Abbreviated Hospital Course: 07/24: CABG x 3 (BURGESS to LAD, left radial to OM, SVG to PDA and sternal plating. Patient did have significant radial artery spasm, treated with papaverine and nitroglycerin. Prior to the case, patientwith known RV dysfunction. During EMILE, RV function improved with MAPs in the 80s, so levophed continued. OR totals: 1L crystalloid, 1 unit PRBC, 1 unit FFP, 1 unit PLT. A and V wires placed. MCT x 2 and bilateral chest tubes. Changed from GROVE SUPERINTENDENT to Epi. 07/25: Inhaled Veletri added for worsening RV dysfunction. 07/26: Unable to wean Veletri d/t increasing PA pressures 07/27: Veletri wean, epi at 0.05 07/28: Veletri weaned off Interval History: - Dilaudid 0.2 X1 - MAP noted in low 60s-> Increased DDD to 100, - SBP goal > 95 - D/W EP re: plan-> Ok to give Plavix ( no need to hold), will notify pace maker plans after discussion - approx : 12:10-> RN notified that pt c/o back and chest pain even after pain meds-> on bedside assessment pt c/o achy pain, back pain , EKG done ( on VVI rate)-> CHB on EKG, unchanged TWI from prior, placed back on DDDat 100, CXR ordered per D/ W ICU attending/fellow. - Bumex + Metolazone 10 X1 , FBG neg 500 - BG in 90s-> decreased lantus to 40 units daily Objective Physical Exam: Neuro: AXO-3, FRANCOISE, FC, delirious CVS: S1S2, RRR, 90% paced, hemodynamically stable unsupported PULM: CTA bilateral, RA , respirations even and non labored GI: Soft/NT/ND/normoactive BS : Castro-. Kavita UOP Extremities: No BLE edema, mild edema to LUE, pulses X4 palpable Drains: As above Wounds/Incisions: midline sternum with steri strips, left chest with steri strips, LUE with steri strips Medications Scheduled Meds:aspirin, 81 mg, oral, Daily atorvastatin, 40 mg, oral, Daily clopidogreL, 75 mg, oral, Daily DULoxetine DR, 60 mg, oral, Nightly heparin, 5,000 Units, subcutaneous, Q8H HILDA [START ON 08/02/2024] insulin glargine, 40 Units, subcutaneous, QAM insulin lispro, 0-10 Units, subcutaneous, TID with meals insulin lispro, 0-5 Units, subcutaneous, Nightly isosorbide mononitrate ER, 15 mg, oral, Daily methocarbamoL, 500 mg, oral, TID pantoprazole DR, 40 mg, oral, Daily QUEtiapine, 100 mg, oral, Nightly senna, 1 tablet, oral, BID Continuous Infusions:Lactated Ringer's, 10 mL/hr, Last Rate: Stopped (07/30/24 0213) sodium chloride 0.9%, 3-12 mL/hr, Last Rate: 6 mL/hr (08/01/24 1300) PRN Meds:.??? dextrose OR dextrose ??? glucagon ??? hydrOXYzine ??? ondansetron ??? oxyCODONE ??? potassium chloride Vital signs for last 24 hours: Temp: [36.5 ??C (97.7 ??F)-37.1 ??C (98.8 ??F)] 36.8 ??C (98.3 ??F) Pulse: [90-105] 104 BP: (86)/(52) 86/52 Resp: [12-20] 18 SpO2: [95 %-100 %] 100 % Arterial Line BP: (93-135)/(45-64) 109/49 FiO2 (%): [21 %] 21 % Hemodynamics: MAP (mmHg): [62] 62 CVP: [4 mmHg-18 mmHg] 5 mmHg Pulmonary Support: O2 Therapy: None (Room air) O2 Del Method: CPAP/Bi-PAP mask FiO2 (%): 21 % O2 Flow Rate (L/min): 0 L/min FiO2 (%): 21 % Intake/Output: Intake/Output Summary (Last 24 hours) at 08/01/2024 1340 Last data filed at 08/01/2024 1300 Gross per 24 hour Intake 839 ml Output 2565 ml Net -1726 ml Lab/Radiology/Diagnostic Review: Laboratory review: Lab results in the last 12 hours: Recent Results (from the past 12 hour(s)) Potassium, whole blood Collection Time: 08/01/24 5:24 AM Result Value Ref Range Potassium, bld 4.0 3.3 - 4.9 mmol/L POCT glucose Collection Time: 08/01/24 7:49 AM Result Value Ref Range Glucose, POC 97 70 - 199 mg/dL POCT glucose Collection Time: 08/01/24 11:54 AM Result Value Ref Range Glucose, POC 121 70 - 199 mg/dL Recent Results (from the past 48 hour(s)) Type and screen Collection Time: 07/30/24 5:01 PM Result Value Ref Range ABO Rh O Positive Janell, indirect Negative POCT glucose Collection Time: 07/30/24 5:01 PM Result Value Ref Range Glucose, POC 181 70 - 199 mg/dL POCT glucose Collection Time: 07/30/24 8:05 PM Result Value Ref Range Glucose, POC 162 70 - 199 mg/dL CBC without differential Collection Time: 07/30/24 11:39 PM Result Value Ref Range WBC 4.0 3.8 - 9.9 K/cumm Hgb 7.3 (L) 13.0 - 17.5 g/dL Hct 23.5 (L) 38.9 - 50.3 % Plt 91 (L) 150 - 400 K/cumm MPV 11.0 9.1 - 12.3 fL RBC 2.72 (L) 4.30 - 5.80 M/cumm MCV 86.4 81.3 - 96.4 fL MCH 26.8 (L) 27.1 - 33.3 pg MCHC 31.1 (L) 32.3 - 35.7 g/dL RDW CV 16.8 (H) 11.1 - 14.9 % RDW SD 52.2 (H) 35.7 - 48.1 fL NRBC abs 0.14 (H) 0.00 - 0.01 K/cumm Basic metabolic panel Collection Time: 07/30/24 11:39 PM Result Value Ref Range Sodium 148 (H) 135 - 145 mmol/L Potassium, pl 3.3 3.3 - 4.9 mmol/L Chloride 109 97 - 110 mmol/L CO2 30 22 - 32 mmol/L Anion gap 9 2 - 15 mmol/L BUN 56 (H) 6 - 25 mg/dL Creatinine 1.20 0.80 - 1.30 mg/dL Glucose 169 70 - 199 mg/dL Calcium 8.5 8.5 - 10.3 mg/dL Magnesium Collection Time: 07/30/24 11:39 PM Result Value Ref Range Magnesium 2.1 1.4 - 2.5 mg/dL Phosphorus Collection Time: 07/30/24 11:39 PM Result Value Ref Range Phosphorus, pl 3.6 2.3 - 4.5 mg/dL Calcium, ionized Collection Time: 07/30/24 11:39 PM Result Value Ref Range Calcium, Ionized 4.68 4.50 - 5.10 mg/dL Hemoglobin total, pulmonary artery Collection Time: 07/30/24 11:39 PM Result Value Ref Range Hemoglobin total, PA 7.7 (L) 13.0 - 17.5 g/dL Oxyhemoglobin, pulmonary artery Collection Time: 07/30/24 11:39 PM Result Value Ref Range Oxyhemoglobin, PA 62.1 % Blood gas, arterial Collection Time: 07/30/24 11:39 PM Result Value Ref Range pH, Art 7.44 7.35 - 7.45 PCO2, Arterial 38 35 - 45 mmHg PO2, Arterial 114 (H) 83 - 108 mmHg HCO3 Art (Calculated) 27 20 - 30 mmol/L BE, art 2 mmol/L O2 Sat Art (Measured) 99 (H) 90 - 95 % eGFR Collection Time: 07/30/24 11:39 PM Result Value Ref Range eGFR 64 >=60 mL/min/1.73 m2 Potassium, whole blood Collection Time: 07/31/24 4:22 AM Result Value Ref Range Potassium, bld 3.5 3.3 - 4.9 mmol/L Oxyhemoglobin, pulmonary artery Collection Time: 07/31/24 4:22 AM Result Value Ref Range Oxyhemoglobin, PA 55.5 % Hemoglobin total, pulmonary artery Collection Time: 07/31/24 4:22 AM Result Value Ref Range Hemoglobin total, PA 8.1 (L) 13.0 - 17.5 g/dL Blood gas, arterial Collection Time: 07/31/24 4:22 AM Result Value Ref Range pH, Art 7.44 7.35 - 7.45 PCO2, Arterial 39 35 - 45 mmHg PO2, Arterial 114 (H) 83 - 108 mmHg HCO3 Art (Calculated) 27 20 - 30 mmol/L BE, art 2 mmol/L O2 Sat Art (Measured) 99 (H) 90 - 95 % POCT glucose Collection Time: 07/31/24 7:38 AM Result Value Ref Range Glucose, POC 121 70 - 199 mg/dL Potassium, whole blood Collection Time: 07/31/24 11:24 AM Result Value Ref Range Potassium, bld 3.5 3.3 - 4.9 mmol/L POCT glucose Collection Time: 07/31/24 11:24 AM Result Value Ref Range Glucose, POC 106 70 - 199 mg/dL POCT glucose Collection Time: 07/31/24 4:57 PM Result Value Ref Range Glucose, POC 130 70 - 199 mg/dL Potassium, whole blood Collection Time: 07/31/24 4:59 PM Result Value Ref Range Potassium, bld 3.4 3.3 - 4.9 mmol/L Potassium, whole blood Collection Time: 07/31/24 8:20 PM Result Value Ref Range Potassium, bld 3.6 3.3 - 4.9 mmol/L POCT glucose Collection Time: 07/31/24 8:20 PM Result Value Ref Range Glucose, POC 161 70 - 199 mg/dL CBC without differential Collection Time: 07/31/24 11:16 PM Result Value Ref Range WBC 5.6 3.8 - 9.9 K/cumm Hgb 7.4 (L) 13.0 - 17.5 g/dL Hct 24.4 (L) 38.9 - 50.3 % Plt 121 (L) 150 - 400 K/cumm MPV 10.5 9.1 - 12.3 fL RBC 2.86 (L) 4.30 - 5.80 M/cumm MCV 85.3 81.3 - 96.4 fL MCH 25.9 (L) 27.1 - 33.3 pg MCHC 30.3 (L) 32.3 - 35.7 g/dL RDW CV 16.5 (H) 11.1 - 14.9 % RDW SD 50.6 (H) 35.7 - 48.1 fL NRBC abs 0.10 (H) 0.00 - 0.01 K/cumm Basic metabolic panel Collection Time: 07/31/24 11:16 PM Result Value Ref Range Sodium 144 135 - 145 mmol/L Potassium, pl 3.9 3.3 - 4.9 mmol/L Chloride 109 97 - 110 mmol/L CO2 25 22 - 32 mmol/L Anion gap 10 2 - 15 mmol/L BUN 46 (H) 6 - 25 mg/dL Creatinine 1.06 0.80 - 1.30 mg/dL Glucose 119 70 - 199 mg/dL Calcium 8.1 (L) 8.5 - 10.3 mg/dL Magnesium Collection Time: 07/31/24 11:16 PM Result Value Ref Range Magnesium 2.1 1.4 - 2.5 mg/dL Phosphorus Collection Time: 07/31/24 11:16 PM Result Value Ref Range Phosphorus, pl 3.5 2.3 - 4.5 mg/dL Calcium, ionized Collection Time: 07/31/24 11:16 PM Result Value Ref Range Calcium, Ionized 4.63 4.50 - 5.10 mg/dL Potassium, whole blood Collection Time: 07/31/24 11:16 PM Result Value Ref Range Potassium, bld 3.6 3.3 - 4.9 mmol/L eGFR Collection Time: 07/31/24 11:16 PM Result Value Ref Range eGFR 75 >=60 mL/min/1.73 m2 Potassium, whole blood Collection Time: 08/01/24 5:24 AM Result Value Ref Range Potassium, bld 4.0 3.3 - 4.9 mmol/L POCT glucose Collection Time: 08/01/24 7:49 AM Result Value Ref Range Glucose, POC 97 70 - 199 mg/dL POCT glucose Collection Time: 08/01/24 11:54 AM Result Value Ref Range Glucose, POC 121 70 - 199 mg/dL XR Chest 1 View Result Date: 07/29/2024 Median sternotomy plates are again seen. The right internal jugular [facility] catheter tip is over the right ventricular outflow tract or main pulmonary artery. Persistence of apparent tight loop of the distal catheter proximal to the tip has persisted on multiple examinations since 07/24/2024 concerning for the possibility of a fixed nodule in the catheter. Right internal jugular central venous catheter tip at superior cavoatrial junction. Mediastinal drain, pericardial drain, bilateral chest tubes, and epicardial pacing wires again seen. Stable cardiomediastinal silhouette. Mild bibasilar atelectasis is similar to the prior study. Left lateral basilar haziness may be due to the atelectasis or small pleural effusion. No pulmonary edema, consolidation, or pneumothorax. The Critical results were discussed with JUSTYN Marin by Dr. Slade on 07/29/2024 at 0619. Electronically signed by: DavidS. Yany M.D. XR Chest 1 View Result Date: 07/28/2024 The current study is compared with the prior radiograph dated 07/26/2024 at 8:27 PM. Sternal fixation plates are aligned and intact. Pulmonary artery catheter projects over the right pulmonary artery. Pericardial, mediastinal, and bilateral thoracostomy drains are seen. A right internal jugular approach central venous catheter terminates at the superior vena cava. There is mildly increased left greater than right bibasilar atelectasis. There is trace pulmonary edema. There are no definite pleural effusions. There is no pneumothorax or pneumonia. The cardiac mediastinal silhouette is unchanged. Dictated by: Tone Olson M.D. The radiology attending physician has personally reviewed this study, and had reviewed and/or edited this written report and agrees with it. Electronically signed by: Serafin Terrell M.D. Assessment/Plan Principal Problem: CAD, multiple vessel Active Problems: Coronary arteriosclerosis Coronary artery disease due to calcified coronary lesion NEURO: #Acute on chronic pain - Scheduled APAP - Home Robaxin TID - PRN oxycodone - Dilaudid 0.2 X 1 - Monitor pain #Mood disorder, chronic - Continue home Cymbalta #Anxiety: -PRN Atarax #ICU delirium - Seroquel 100 mg QPM - Delirium precautions CV: #CAD, chronic #Cardiogenic shock, POA #Pulmonary hypertension, POA # CHB , underlying rhythm: - s/p 07/24: CABG x3 (BURGESS to LAD, left radial to OM, SVG to PDA) and sternal plating - Post CPB EMILE on GROVE SUPERINTENDENT 5 w/ mildly improved LV function (from 40-50% pre CPB), mild RV dysfunction - 07/24 PM: Changed to Epi d/t low SVR and high pressor requirement 07/25: Epi increased d/t CI dropping to 1.9-2 and PA pressures increasing to 1/2 systemic. Inhaled Veletri also added w/ improvement in CI and reduction in PA pressures - 07/28: Veletri and Nitro gtt weaned off - 07/30: Epinephrine weaned off - Bumex gtt stopped 07/29 - Aspirin, statin, plavix daily - Imdur daily - Holding GDMT in the acute setting - EPW DDD @ 100--> 07/31: per CTS underlying rhythm in 40s , decreased Pacer to DDD to 90 - 08/01: MAP noted in low 60s-> Increased DDD to 100 ( DDD @90), - SBP goal > 95 - EP following - 07/31: CTS removed SWAN at bedside - CTS primary #HTN, chronic #HLD, chronic - Holding home carvedilol and Entresto - Continue home statin PULM: #Acute pulmonary insufficiency: - Currently on RA - Aggressive diuresis as needed-> Bumex 1 mg + metolazone -Acapella, IS - Pulm hygiene, SpO2 goal >92%, PT/OT #JACQUELINE, chronic - Home nocturnal CPAP - JACQUELINE precautions GI: #Dysphagia: -Speech following Diet: mechanical soft diet with thin liquids 07/31 Bowel regimen: senna> 4 X #GERD: chronic -Continue home PPI ENDO: #DM2, chronic - A1C 7.5 - Home regimen: 90 units Lantus - BG 160-> 90s - Lantus 40 units + SSI - Monitor glucose RENAL: #VITALY- improving - BUN/Cr: 56/1.20-> 46/1.06 - Ongoing diuresis - Castro, strict I/O - FBG neg 500 ml - Renal dose meds, avoid nephrotoxic agents - Monitor BMP and electrolytes #Hypernatremia: likely 2/2 diuresis resolved -Na 152-->148-> 144 -Monitor BMP HEME: #ABLA: likely 2/2 surgery, labs #Thrombocytopenia: -H/H 7.3/23-> 7.4/24.4 -Platelets 91-> 121 -No s/s bleeding, no indication for transfusion, continue to monitor closely -Monitor CBC ID: - WBC 4-> 5.6 - afebrile - CTM WBC trend and fever curve Intensive Care Unit Standards of Care: DVT prophylaxis: SCDs, SQH Vascular access: R radial dorcas (07/24), RIJ QLC (07/24), PIV x1 Goals of care: Full code Updated pt regarding pt condition and plan of care Assessment and plan discussed with ICU attending/ICU fellow Mala Latif [facility] Critical Care Performed by: Mala Latif NP Authorized by: Mala Latif NP CRITICAL CARE: Team: 83 CTICU Shift: AM Level of Billing: Critical Care My time spent with this patient was 100 minutes: Critical Provider Statement: I have seen and examined the patient on this day of service. I have reviewed and confirmed the history, physical exam, laboratory and radiologic data as documented in thesigned ICU note. I have reviewed and discussed my treatment plan with the ICU team and other medical/systems consultant staff, making frequent assessments and decisions regarding this patient's complex medical care. Critical Care time was exclusive of time spent performing separately billed procedures, treating other patients, and teaching. This time was in addition to and separate from critical care provided by other practitioners in my group on this day of service. Critical Care was necessary to treat or prevent imminent or life-threatening deterioration of the following conditions: I spent time reviewing and interpreting data from bedside monitors, laboratory results, and imaging, I spent time discussing the management of this critically ill patient with consultants and the medical staff and I spent time documenting in the medical record Cosigned by Feng Sinclair MD at 08/03/2024 5:42 PM CDT * Payton Fernando NP - 07/31/2024 6:44 PM CDTAssociated Order(s): Critical Care Post-Procedure Diagnose(s): Coronary artery disease, unspecified vessel or lesion type, unspecifiedwhether angina present, unspecified whether [facility] or transplanted heart Surgical ICU Daily Progress Team: 8200 PM 2 Subjective Patient is a 74 y.o. male admitted on 07/24/2024 6:02 AM with chief complaint of CAD s/p CABG. Interval History: -Ongoing potassium repletion -Sodium normal. Dc D5W Objective Physical Exam: Physical Exam General: No Acute Distress Neuro: A&Ox3, follows commands, MAEW Cardiac: S1 and S2, RRR, no M/G/R Pulmonary: Lungs clear to auscultation, respirations even/unlabored Abdominal: Soft/Nontender/Nondistended, normoactive bowel sounds Extremities: Anasarca, PPP, warm, pink Drains: Castro- clear yellow urine Medications Scheduled Meds:acetaZOLAMIDE, 500 mg, intravenous, Q8H aspirin, 81 mg, oral, Daily atorvastatin, 40 mg, oral, Daily clopidogreL, 75 mg, oral, Daily DULoxetine DR, 60 mg, oral, Nightly heparin, 5,000 Units, subcutaneous, Q8H HILDA insulin glargine, 50 Units, subcutaneous, QAM insulin lispro, 0-10 Units, subcutaneous, TID with meals insulin lispro, 0-5 Units, subcutaneous, Nightly isosorbide mononitrate ER, 15 mg, oral, Daily lidocaine (PF), , , methocarbamoL, 500 mg, oral, TID pantoprazole DR, 40 mg, oral, Daily QUEtiapine, 100 mg, oral, Nightly senna, 1 tablet, oral, BID Continuous Infusions:dextrose 5%, 50 mL/hr, Last Rate: 50 mL/hr (07/31/24 1800) EPINEPHrine, 0-0.05 mcg/kg/min, Last Rate: Stopped (07/31/24 0038) Lactated Ringer's, 10 mL/hr, Last Rate: Stopped (07/30/24 0213) sodium chloride 0.9%, 3-12 mL/hr, Last Rate: 9 mL/hr (07/31/24 1800) PRN Meds:. dextrose OR dextrose glucagon hydrOXYzine lidocaine (PF) ondansetron oxyCODONE potassium chloride sodium chloride 0.9% Vital signs for last 24 hours: Temp: [37.1 ??C (98.8 ??F)-37.5 ??C (99.5 ??F)] 37.1 ??C (98.8 ??F) Pulse: [90-102] 92 Resp: [14-29] 17 SpO2: [85 %-100 %] 98 % Arterial Line BP: (95-150)/(43-71) 103/49 FiO2 (%): [21 %] 21 % Hemodynamics: PAP: (21-51)/(10-29) 44/28 PAP (Mean): [16 mmHg-38 mmHg] 35 mmHg CVP: [4 mmHg-255 mmHg] 8 mmHg Pulmonary Support: O2 Therapy: None (Room air) O2 Del Method: Nasal cannula FiO2 (%): 21 % O2 Flow Rate (L/min): 2 L/min FiO2 (%): 21 % Intake/Output: Intake/Output Summary (Last 24 hours) at 07/31/2024 1844 Last data filed at 07/31/2024 1800 Gross per 24 hour Intake 1587.96 ml Output 1310 ml Net 277.96 ml Lab/Radiology/Diagnostic Review: Laboratory review: Lab results in the last 12 hours: Recent Results (from the past 12 hour(s)) POCT glucose Collection Time: 07/31/24 7:38 AM Result Value Ref Range Glucose, POC 121 70 - 199 mg/dL Potassium, whole blood Collection Time: 07/31/24 11:24 AM Result Value Ref Range Potassium, bld 3.5 3.3 - 4.9 mmol/L POCT glucose Collection Time: 07/31/24 11:24 AM Result Value Ref Range Glucose, POC 106 70 - 199 mg/dL POCT glucose Collection Time: 07/31/24 4:57 PM Result Value Ref Range Glucose, POC 130 70 - 199 mg/dL Potassium, whole blood Collection Time: 07/31/24 4:59 PM Result Value Ref Range Potassium, bld 3.4 3.3 - 4.9 mmol/L Recent Results (from the past 48 hour(s)) POCT glucose Collection Time: 07/29/24 8:34 PM Result Value Ref Range Glucose, POC 138 70 - 199 mg/dL Oxyhemoglobin, pulmonary artery Collection Time: 07/29/24 9:34 PM Result Value Ref Range Oxyhemoglobin, PA 61.1 % Hemoglobin total, pulmonary artery Collection Time: 07/29/24 9:34 PM Result Value Ref Range Hemoglobin total, PA 7.8 (L) 13.0 - 17.5 g/dL Blood gas, arterial Collection Time: 07/29/24 9:34 PM Result Value Ref Range pH, Art 7.48 (H) 7.35 - 7.45 PCO2, Arterial 42 35 - 45 mmHg PO2, Arterial 130 (H) 83 - 108 mmHg HCO3 Art (Calculated) 32 (H) 20 - 30 mmol/L BE, art 7 mmol/L O2 Sat Art (Measured) 99 (H) 90 - 95 % CBC without differential Collection Time: 07/30/24 1:01 AM Result Value Ref Range WBC 3.8 3.8 - 9.9 K/cumm Hgb 7.6 (L) 13.0 - 17.5 g/dL Hct 24.4 (L) 38.9 - 50.3 % Plt 72 (L) 150 - 400 K/cumm MPV 9.9 9.1 - 12.3 fL RBC 2.88 (L) 4.30 - 5.80 M/cumm MCV 84.7 81.3 - 96.4 fL MCH 26.4 (L) 27.1 - 33.3 pg MCHC 31.1 (L) 32.3 - 35.7 g/dL RDW CV 17.1 (H) 11.1 - 14.9 % RDW SD 52.5 (H) 35.7 - 48.1 fL NRBC abs 0.20 (H) 0.00 - 0.01 K/cumm Basic metabolic panel Collection Time: 07/30/24 1:01 AM Result Value Ref Range Sodium 150 (H) 135 - 145 mmol/L Potassium, pl 3.6 3.3 - 4.9 mmol/L Chloride 107 97 - 110 mmol/L CO2 34 (H) 22 - 32 mmol/L Anion gap 9 2 - 15 mmol/L BUN 56 (H) 6 - 25 mg/dL Creatinine 1.39 (H) 0.80 - 1.30 mg/dL Glucose 148 70 - 199 mg/dL Calcium 9.2 8.5 - 10.3 mg/dL Magnesium Collection Time: 07/30/24 1:01 AM Result Value Ref Range Magnesium 2.0 1.4 - 2.5 mg/dL Phosphorus Collection Time: 07/30/24 1:01 AM Result Value Ref Range Phosphorus, pl 4.1 2.3 - 4.5 mg/dL eGFR Collection Time: 07/30/24 1:01 AM Result Value Ref Range eGFR 54 (L) >=60 mL/min/1.73 m2 Blood gas, arterial Collection Time: 07/30/24 7:48 AM Result Value Ref Range pH, Art 7.46 (H) 7.35 - 7.45 PCO2, Arterial 42 35 - 45 mmHg PO2, Arterial 148 (H) 83 - 108 mmHg HCO3 Art (Calculated) 30 20 - 30 mmol/L BE, art 5 mmol/L O2 Sat Art (Measured) 100 (H) 90 - 95 % Oxyhemoglobin, pulmonary artery Collection Time: 07/30/24 7:48 AM Result Value Ref Range Oxyhemoglobin, PA 70.7 % Hemoglobin total, pulmonary artery Collection Time: 07/30/24 7:48 AM Result Value Ref Range Hemoglobin total, PA 7.6 (L) 13.0 - 17.5 g/dL POCT glucose Collection Time: 07/30/24 7:50 AM Result Value Ref Range Glucose, POC 173 70 - 199 mg/dL POCT glucose Collection Time: 07/30/24 10:56 AM Result Value Ref Range Glucose, POC 141 70 - 199 mg/dL Basic metabolic panel Collection Time: 07/30/24 12:13 PM Result Value Ref Range Sodium 152 (H) 135 - 145 mmol/L Potassium, pl 3.5 3.3 - 4.9 mmol/L Chloride 112 (H) 97 - 110 mmol/L CO2 33 (H) 22 - 32 mmol/L Anion gap 7 2 - 15 mmol/L BUN 56 (H) 6 - 25 mg/dL Creatinine 1.38 (H) 0.80 - 1.30 mg/dL Glucose 153 70 - 199 mg/dL Calcium 8.6 8.5 - 10.3 mg/dL eGFR Collection Time: 07/30/24 12:13 PM Result Value Ref Range eGFR 54 (L) >=60 mL/min/1.73 m2 Type and screen Collection Time: 07/30/24 5:01 PM Result Value Ref Range ABO Rh O Positive Janell, indirect Negative POCT glucose Collection Time: 07/30/24 5:01 PM Result Value Ref Range Glucose, POC 181 70 - 199 mg/dL POCT glucose Collection Time: 07/30/24 8:05 PM Result Value Ref Range Glucose, POC 162 70 - 199 mg/dL CBC without differential Collection Time: 07/30/24 11:39 PM Result Value Ref Range WBC 4.0 3.8 - 9.9 K/cumm Hgb 7.3 (L) 13.0 - 17.5 g/dL Hct 23.5 (L) 38.9 - 50.3 % Plt 91 (L) 150 - 400 K/cumm MPV 11.0 9.1 - 12.3 fL RBC 2.72 (L) 4.30 - 5.80 M/cumm MCV 86.4 81.3 - 96.4 fL MCH 26.8 (L) 27.1 - 33.3 pg MCHC 31.1 (L) 32.3 - 35.7 g/dL RDW CV 16.8 (H) 11.1 - 14.9 % RDW SD 52.2 (H) 35.7 - 48.1 fL NRBC abs 0.14 (H) 0.00 - 0.01 K/cumm Basic metabolic panel Collection Time: 07/30/24 11:39 PM Result Value Ref Range Sodium 148 (H) 135 - 145 mmol/L Potassium, pl 3.3 3.3 - 4.9 mmol/L Chloride 109 97 - 110 mmol/L CO2 30 22 - 32 mmol/L Anion gap 9 2 - 15 mmol/L BUN 56 (H) 6 - 25 mg/dL Creatinine 1.20 0.80 - 1.30 mg/dL Glucose 169 70 - 199 mg/dL Calcium 8.5 8.5 - 10.3 mg/dL Magnesium Collection Time: 07/30/24 11:39 PM Result Value Ref Range Magnesium 2.1 1.4 - 2.5 mg/dL Phosphorus Collection Time: 07/30/24 11:39 PM Result Value Ref Range Phosphorus, pl 3.6 2.3 - 4.5 mg/dL Calcium, ionized Collection Time: 07/30/24 11:39 PM Result Value Ref Range Calcium, Ionized 4.68 4.50 - 5.10 mg/dL Hemoglobin total, pulmonary artery Collection Time: 07/30/24 11:39 PM Result Value Ref Range Hemoglobin total, PA 7.7 (L) 13.0 - 17.5 g/dL Oxyhemoglobin, pulmonary artery Collection Time: 07/30/24 11:39 PM Result Value Ref Range Oxyhemoglobin, PA 62.1 % Blood gas, arterial Collection Time: 07/30/24 11:39 PM Result Value Ref Range pH, Art 7.44 7.35 - 7.45 PCO2, Arterial 38 35 - 45 mmHg PO2, Arterial 114 (H) 83 - 108 mmHg HCO3 Art (Calculated) 27 20 - 30 mmol/L BE, art 2 mmol/L O2 Sat Art (Measured) 99 (H) 90 - 95 % eGFR Collection Time: 07/30/24 11:39 PM Result Value Ref Range eGFR 64 >=60 mL/min/1.73 m2 Potassium, whole blood Collection Time: 07/31/24 4:22 AM Result Value Ref Range Potassium, bld 3.5 3.3 - 4.9 mmol/L Oxyhemoglobin, pulmonary artery Collection Time: 07/31/24 4:22 AM Result Value Ref Range Oxyhemoglobin, PA 55.5 % Hemoglobin total, pulmonary artery Collection Time: 07/31/24 4:22 AM Result Value Ref Range Hemoglobin total, PA 8.1 (L) 13.0 - 17.5 g/dL Blood gas, arterial Collection Time: 07/31/24 4:22 AM Result Value Ref Range pH, Art 7.44 7.35 - 7.45 PCO2, Arterial 39 35 - 45 mmHg PO2, Arterial 114 (H) 83 - 108 mmHg HCO3 Art (Calculated) 27 20 - 30 mmol/L BE, art 2 mmol/L O2 Sat Art (Measured) 99 (H) 90 - 95 % POCT glucose Collection Time: 07/31/24 7:38 AM Result Value Ref Range Glucose, POC 121 70 - 199 mg/dL Potassium, whole blood Collection Time: 07/31/24 11:24 AM Result Value Ref Range Potassium, bld 3.5 3.3 - 4.9 mmol/L POCT glucose Collection Time: 07/31/24 11:24 AM Result Value Ref Range Glucose, POC 106 70 - 199 mg/dL POCT glucose Collection Time: 07/31/24 4:57 PM Result Value Ref Range Glucose, POC 130 70 - 199 mg/dL Potassium, whole blood Collection Time: 07/31/24 4:59 PM Result Value Ref Range Potassium, bld 3.4 3.3 - 4.9 mmol/L XR Chest 1 View Result Date: 07/29/2024 Median sternotomy plates are again seen. The right internal jugular [place] catheter tip is over the right ventricular outflow tract or main pulmonary artery. Persistence of apparent tight loop of the distal catheter proximal to the tip has persisted on multiple examinations since 07/24/2024 concerning for the possibility of a fixed nodule in the catheter. Right internal jugular central venous catheter tip at superior cavoatrial junction. Mediastinal drain, pericardial drain, bilateral chest tubes, and epicardial pacing wires again seen. Stable cardiomediastinal silhouette. Mild bibasilar atelectasis is similar to the prior study. Left lateral basilar haziness may be due to the atelectasis or small pleural effusion. No pulmonary edema, consolidation, or pneumothorax. The Critical results were discussed with JUSTYN Marin by Dr. Slade on 07/29/2024 at 0619. Electronically signed by: DavidS. Yany M.D. XR Chest 1 View Result Date: 07/28/2024 The current study is compared with the prior radiograph dated 07/26/2024 at 8:27 PM. Sternal fixation plates are aligned and intact. Pulmonary artery catheter projects over the right pulmonary artery. Pericardial, mediastinal, and bilateral thoracostomy drains are seen. A right internal jugular approach central venous catheter terminates at the superior vena cava. There is mildly increased left greater than right bibasilar atelectasis. There is trace pulmonary edema. There are no definite pleural effusions. There is no pneumothorax or pneumonia. The cardiac mediastinal silhouette is unchanged. Dictated by: Tone Olson M.D. The radiology attending physician has personally reviewed this study, and had reviewed and/or edited this written report and agrees with it. Electronically signed by:Serafin Terrell M.D. Assessment/Plan Principal Problem: CAD, multiple vessel Active Problems: Coronary arteriosclerosis Coronary artery disease due to calcified coronary lesion NEURO: #Acute on chronic pain - Scheduled APAP - Home robaxin TID - PRN oxycodone - Monitor pain #Mood disorder, chronic - Continue home Cymbalta #Anxiety: -PRN Atarax #ICU delirium - Seroquel 100 mg QPM - Delirium precautions CV: #CAD, chronic #Cardiogenic shock, POA #Pulmonary hypertension, POA - s/p 07/24: CABG x3 (BURGESS to LAD, left radial to OM, SVG to PDA) and sternal plating - Post CPB EMILE on GROVE SUPERINTENDENT 5 w/ mildly improved LV function (from 40-50% pre CPB), mild RV dysfunction - 07/24 PM: Changed to Epi d/t low SVR and high pressor requirement 07/25: Epi increased d/t CI dropping to 1.9-2 and PA pressures increasing to 1/2 systemic. Inhaled Veletri also added w/ improvement in CI and reduction in PA pressures - 07/28: Veletri and Nitro gtt weaned off - Epi wean q12 hours if SvO2 >60/ALEX >2.2-->ALEX 3.2, epi weaned off tonight - Bumex gtt stopped 07/29. Ongoing intermittent diuresis as needed. Given diamox x3 plus metolazone today for FBG negative - Aspirin, statin, plavix daily - Imdur daily - Holding GDMT in the acute setting - EPW DDD @ 100-->EP c/s, follow up recs - CTS primary #HTN, chronic #HLD, chronic - Holding home carvedilol and Entresto - Continue home statin PULM: #Acute pulmonary insufficiency: - Currently on RA - Aggressive diuresis -Acapella, IS - Pulm hygiene, SpO2 goal >92%, PT/OT #JACQUELINE, chronic - Home nocturnal CPAP - JACQUELINE precautions GI: Diet: Mechanical soft with thin liquids Bowel regimen: senna, miralax #Dysphagia: -Speech following -Ok for mechanical soft with thin liquids #GERD: chronic -Continue home PPI ENDO: #DM2, chronic - A1C 7.5 - Home regimen: 90 units Lantus - Lantus 50 units + SSI - Monitor glucose RENAL: #VITALY- improving - BUN/Cr: 46/1.06 - Ongoing diuresis for FBG negative - Castro, strict I/O - Renal dose meds, avoid nephrotoxic agents - Monitor BMP and electrolytes #Hypernatremia: likely 2/2 diuresis -Na 144 -D5W discontinued -Monitor BMP #Hypokalemia: -Ongoing potassium repletion HEME: #ABLA: likely 2/2 surgery, labs #Thrombocytopenia: -H/H 7.4/24 -Platelets 121 -No s/s bleeding, no indication for transfusion, continue to monitor closely -Monitor CBC ID: WBC 5. No signs of infection. Intensive Care Unit Standards of Care: DVT prophylaxis: SCDs, SQH Vascular access: R radial dorcas (07/24), RIJ QLC (07/24), PIV x1 Goals of care: Full code Assessment and plan has been reviewed with attending Payton Fernando NP Critical Care Performed by: Payton Fernando NP Authorized by: Payton Fernando NP CRITICAL CARE: Team: 83 CTICU Shift: PM Level of Billing: Subsequent Hospital Visit Level 3 My time spent with this patient was 60 minutes: Critical Provider Statement: I have seen and examined the patient on this day of service. I have reviewed and confirmed the history, physical exam, laboratory, and radiographic data as documented in the ICU note. I have reviewed and discussed my treatment plan with the patient's team and other medical/systems consultant staff. This time was in addition to and separate from care provided by other practitioners on this day of service. I spent time reviewing and interpreting data from bedside monitors, laboratory results, and imaging, I spent time discussing the management of this critically ill patient with consultants and the medical staff and I spent time documenting in the medical record Cosigned by Feng Sinclair MD at 08/03/2024 5:42 PM CDT * Briseida Landrum OT - 07/31/2024 11:46 AM CDT Occupational Therapy Progress Note NOTE: This is a summary note of the [place]re[place] components of the treatment session. For full details, review chart for all flowsheets documented on by this occupational therapy clinician on this date. Vitalsigns documented in vital signs flowsheet. Care plan progress documented in Care Plan Activity. For questions, please review the treatment team and contact the occupational therapist currently assigned to this patient. If an occupational therapist is not assigned to this patient, please call [phone]. 07/31/24 4168 General Session Type Treatment (co-treat with PT) OT Received On 07/31/24 Safe Environment Arm band checked;Patient found sitting in chair;Gait belt not utilized, see comment (epicardial wires) Subjective Agreeable to Therapy Family/Caregiver Present No Precautions Precautions Cardiac sternal;Fall risk Precaution Comments verbally reviewed sternal precautions prior to all mobility Pain Assessment Pain Assessment No/denies pain Balance Balance Yes Static Sitting Balance Static Sitting-Balance Support Feet supported;No upper extremity supported Static Sitting-Sitting Surface Bed;Chair Static Sitting-Level of Assistance Close supervision Static Sitting-Comment/# of Minutes to ensure safety and balance Static Standing Balance Static Standing-Balance Support 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) Static Standing-Standing Surface Floor Static Standing-Level of Assistance Moderate assistance (x2) Static Standing-Comment/# of Minutes to ensure safety and balance ADL ADLS (WDL) X Grooming Grooming: Where assessed Chair Grooming: Level of assistance Moderate Assist (set up task/total balance) Grooming: Assistance with Safety;Balance LE Dressing LE Dressing: Where assessed Supine, bed LE Dressing: Level of assistance Dependent LE Dressing: Assistance with Don/doff R sock;Don/doff L sock;Thread RLE into pants;Thread LLE into pants;Thread RLE into underwear;Pull up over hips;Thread LLE into underwear;Fasteners;Safety;Balance Bed Mobility Bed Mobility Yes Bed Mobility 1 Bed Mobility From 1 Edge of bed Bed Mobility Type 1 To Bed Mobility to 1 Supine Level of Assistance 1 Moderate Assist (x2) Bed Mobility Comments 1 trunk elevation, LE navigation Transfers Transfer Yes Transfer 1 Transfer From 1 Sit Transfer Type 1 To and from Transfer to 1 Stand Technique 1 Sit to stand;Stand to sit Transfer Device 1 Hand held assist Transfer Level of Assistance 1 Moderate Assist (x2) Trials/Comments 1 force production, balance, sequencing Transfers 2 Trials/Comments 2 functional mobility: NT 2/2 safety concerns Toilet Transfers Toilet Transfer From Chair with arms Toilet Transfer Type To Toilet Transfer to (bed, sim) Toilet Transfer Technique Stand and Step Toilet Transfer: Equipment Hand hold Toilet Transfers Moderate assistance (x2) Toilet Transfers Comments force production, balance, sequncing Cognition Arousal/Alertness Alert;Appropriate responses to stimuli Attention Span Appears intact Memory Decreased short term memory Current communication Appears Intact Orientation Oriented X4 (person, place, time, situation) Following Commands Follows all commands and directions without difficulty Compliance/Behavior Easy to engage Activity Tolerance Activity Tolerance Comments Pretty: Moderate Other Comments Comments Pt appeared to be overwhelmed on this date Daily Activity - 6 Clicks Putting on and taking off regular lower body clothing 1 Bathing 2 Toileting 1 Putting on and taking off upper body clothing 2 Personal Grooming 2 Eating Meals 2 Total Score (range 6-24) 10 Score Interpretation 27.31 Safe Environment End of Therapy Session Safe Environment End of Therapy Session RN notified;Call light within reach;Overbed table within reach;Patient left supine in bed Assessment Problem List Decreased endurance;Decreased balance;Decreased functional mobility;Decreased ADL independence;Decreased IADL independence;Decreased cognition;Decreased safe judgment during ADL;Decreased upper extremity strength;Decreased upper extremity range of motion;Decreased frequency/variety of movement;Decreased trunk control for functional activities;Decreased sensation Barriers to Discharge Current Mobility Status;Current ADL Status;Cognition;Decreased safety awareness Plan Plan Continue with current plan;If this is the last note, consider this the discharge summary Recommendation/Plan OT Recommendation Inpatient Rehab Facility Patient at high risk for Falls;Readmission;Injury due to decreased ability to care for self;Injury due to reduced functional status;Injury due to impaired cognition;Injury due to balance deficits;Injury at home as patient has not returned to prior level of function;Developing impaired skin integrity ;Mismanagement of medications;Prolonged dependence for self care tasks;Cognitive decline due to decreased social participation Recommend Inpatient Rehab/Acute Rehab due to Ability to actively participate in intensive therapy 3hours/day, 5 days/week or 900 minutes per week;Highly motivated to participate in therapy;Not at baseline due to impaired ability to complete ADLs;Impaired ability to complete functional mobility;Likely to return to the community at discharge with support system in place;Requires greater than 25% physical assistance with most mobility tasks;Requires greater than 25% physical assistance with most ADL tasks;Requires multiple therapy disciplines to address functional deficits;Patient and caregiverrequire specialized skilled training due to new level of function/diagnosis OT Frequency during current admission 3-5x/wk Treatment/Interventions during current admission ADL/IADL retraining;Balance Training;Bed mobility;Compensatory technique education;Endurance training;Functional activity;Functional mobility training;Functional transfer training;Therapeutic activity;Therapeutic exercise;Transfer training Progress during current admission Progressing toward goals OT - Next Appointment 08/02/24 Time Calculation Start Time 1146 Stop Time 1159 Time Calculation (min) 13 min Multi-Disciplinary Problems (from Occupational Therapy) Active Problems Problem: Dressings Lower Extremities Start Date: 07/27/24 Goal Start Date Expected End Date End Date STG - Patient to complete lower body dressing with supervision. 07/27/24 08/10/24 -- Problem: Grooming Start Date: 07/27/24 Goal Start Date Expected End Date End Date STG - Patient will complete grooming standing at the sink with supervision. 07/27/24 08/10/24 -- Problem: Toileting Start Date: 07/27/24 Goal Start Date Expected End Date End Date STG - Patient will complete toileting tasks with supervision. 07/27/24 08/10/24 -- Problem: Transfers Start Date: 07/27/24 Goal Start Date Expected End Date End Date STG - Patient will perform toilet transfer to standard toilet with supervision. 07/27/24 08/10/24 -- Problem: OT Misc Start Date: 07/27/24 Goal Start Date Expected End Date End Date OT LTG - Patient will demonstrate modified independence/independence with ADL task completion. 07/27/24 08/26/24 -- * Viry Soliman, PT - 07/31/2024 11:45 AM CDT Physical Therapy Physical Therapy Progress Note NOTE: This is a summary note of the barreto components of the treatment session. For full details, review chart for all flowsheets documented on by this physical therapy clinician on this date. Vital signs documented in vital signs flowsheet. Care plan progress documented in Care Plan Activity. For questions, please review the treatment team and contact the PT or APPLIANCE ASSEMBLER currently assigned to this patient. If a physical therapy clinician is not assigned to this patient, please call [phone]. Co-session complete with OT due to patient's functional mobility complexity necessitating two skilled rehabilitation clinicians to provide safe mobility progression. During session, my focus was on LE strength and endurance as well as functional mobility to progress towards physical therapy goals as stated below. 07/31/24 1135 PT Last Visit Session Type Treatment (co session with OT) PT Received On 07/31/24 Safe Environment Arm band checked;Session completed bedside;Gait belt not utilized, see comment;Patient found sitting in chair Subjective Agreeable to Therapy Family/Caregiver Present No Precautions Precautions Cardiac sternal;Fall risk Precaution Comments Cardiac Sternal Precautions reviewed verbally Activity Tolerance Activity Tolerance Comments RPE: 8/10 Pain Assessment Pain Assessment No/denies pain Cognition Arousal/Alertness Alert;Appropriate responses to stimuli Orientation Oriented X4 (person, place, time, situation) Following Commands Follows all commands and directions without difficulty Compliance/Behavior Easy to engage Static Sitting Balance Static Sitting-Balance Support No upper extremity supported;Feet supported Static Sitting-Sitting Surface Chair Static Sitting-Level of Assistance Close supervision Static Standing Balance Static Standing-Balance Support Bilateral upper extremity supported Static Standing-Standing Surface Floor Static Standing-Level of Assistance Moderate assistance (x2) Transfer 1 Transfer From 1 Sit Transfer Type 1 To and from Transfer to 1 Stand Technique 1 Sit to stand;Stand to sit Transfer Device 1 Hand held assist Transfer Level of Assistance 1 Moderate Assist;Moderate verbal cues;Moderate tactile cues (x2) Trials/Comments 1 x2 reps from chair, max verbal cues Transfers 2 Transfer From 2 Chair with arms Transfer Type 2 To Transfer to 2 Bed Technique 2 Stand and step Transfer Device 2 Hand held assist Transfer Level of Assistance 2 Moderate Assist;Maximal verbal cues;Maximal tactile cues (x2) Trials/Comments 2 max cues due to poor wt shift, lateral stepping, and progression of LE Other Comments Other PT Comments VSS throughout session pt contines to demonstrate weight shifting and stepping deficts. Anticipate continued progression of mobility with continued skilled intervention. Basic Mobility - 6 Click How much difficulty does the patient have: Turning over in bed 2 How much difficulty does the patient currently have: Sitting down and standing up from a chair witharms? 2 How much difficulty does the patient have: Moving from lying on back to sitting on the side of the bed? 2 How much difficulty does the patient have: Moving to and from a bed to a chair including wheelchair? 2 How much help does the patient currently need: Walk in hospital room? 1 How much help from another person does the patient currently need: Climbing 3-5 steps with a railing? 1 Total 6 Click Score (range 6-24) 10 Score Interpretation 28.13 Safe Environment End of Therapy Session Safe Environment End of Therapy Session RN notified;Call light within reach;Overbed table within reach;Patient left supine in bed Assessment Prognosis Good Problem List Gait deviations;Decreased strength;Decreased endurance;Impaired balance;Decreased mobility Barriers to Discharge Current Mobility Status Plan Plan Continue with current plan;If this is the last note, consider this the discharge summary Recommendation/Plan PT Recommendation/Plan Inpatient Rehab Facility Patient at high risk for Falls;Readmission;Injury due to decreased ability to care for self;Injury due to reduced functional status;Injury due to balance deficits;Injury at home as patient has not returned to prior level of function;Developing impaired skin integrity Recommend Inpatient Rehab/Acute Rehab due to Ability to actively participate in intensive therapy 3hours/day, 5 days/week or 900 minutes per week;Highly motivated to participate in therapy;Not at baseline due to impaired ability to complete ADLs;Impaired ability to complete functional mobility;Likely to return to the community at discharge with support system in place;Requires greater than 25% physical assistance with most mobility tasks;Requires greater than 25% physical assistance with most ADL tasks PT Frequency during current admission 3-5x/wk Treatment/Interventions during current admission Balance Training;Bed mobility;Endurance training;Functional activity;Functional transfer training;Gait training;Stair training;Strengthening;Therapeutic activity;Therapeutic exercise;Transfer training Progress during current admission Progressing toward goals PT - Next Appointment 08/02/24 PT - OK to Discharge No Time Calculation Start Time 1135 Stop Time 1145 Time Calculation (min) 10 min Multi-Disciplinary Problems (from Physical Therapy) Active Problems Problem: Mobility Start Date: 07/26/24 Goal Start Date Expected End Date End Date LTG - Patient will ambulate community distance 07/26/24 08/09/24 -- Goal Details: MOd I with SC Goal Start Date Expected End Date End Date STG - Patient will ambulate 07/26/24 08/09/24 -- Goal Details: 250ft, SBA LRAD Goal Start Date Expected End Date End Date STG - Patient will ascend and descend 2 stairs with the following level of assist: 07/26/24 08/09/24 -- Goal Details: SBA with HR Problem: Transfers Start Date: 07/26/24 Goal Start Date Expected End Date End Date STG - Patient will perform bed mobility 07/26/24 08/09/24 -- Goal Details: SBA Goal Start Date Expected End Date End Date STG - Patient will transfer sit to and from stand 07/26/24 08/09/24 -- Goal Details: SBA LRAD Problem: PT Misc Start Date: 07/26/24 Goal Start Date Expected End Date End Date PT STG - Misc 1 07/26/24 08/09/24 -- Goal Details: Patient and caregivers will participate in and demonstrate understanding of therapeutic exercise and safe mobility strategies to improve independence with functional mobility. * Mala Latif NP - 07/31/2024 6:00 AM CDTAssociated Order(s): Critical Care Post-Procedure Diagnose(s): Coronary artery disease, unspecified vessel or lesion type, unspecifiedwhether angina present, unspecified whether [facility] or transplanted heart Surgical ICU Daily Progress Team: 8200 AM 2 Subjective Patient is a 74 y.o. male admitted on 07/24/2024 6:02 AM with chief complaint of CAD s/p CABG. 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 Kavita UOP Extremities: No BLE edema, mild edema to LUE, pulses X4 palpable Drains: As above Wounds/Incisions: midline sternum with steri strips, left chest with steri strips, LUE with steri strips Medications Scheduled Meds:acetaZOLAMIDE, 500 mg, intravenous, Q8H aspirin, 81 mg, oral, Daily atorvastatin, 40 mg, oral, Daily clopidogreL, 75 mg, oral, Daily DULoxetine DR, 60 mg, oral, Nightly heparin, 5,000 Units, subcutaneous, Q8H HILDA insulin glargine, 50 Units, subcutaneous, QAM insulin lispro, 0-10 Units, subcutaneous, TID with meals insulin lispro, 0-5 Units, subcutaneous, Nightly isosorbide mononitrate ER, 15 mg, oral, Daily lidocaine (PF), , , methocarbamoL, 500 mg, oral, TID pantoprazole DR, 40 mg, oral, Daily QUEtiapine, 100 mg, oral, Nightly senna, 1 tablet, oral, BID Continuous Infusions:dextrose 5%, 50 mL/hr, Last Rate: 50 mL/hr (07/31/24 1500) EPINEPHrine, 0-0.05 mcg/kg/min, Last Rate: Stopped (07/31/24 0038) Lactated Ringer's, 10 mL/hr, Last Rate: Stopped (07/30/243) sodium chloride 0.9%, 3-12 mL/hr, Last Rate: 9 mL/hr (07/31/24 1500) PRN Meds:. dextrose OR dextrose glucagon hydrOXYzine lidocaine (PF) ondansetron oxyCODONE potassium chloride sodium chloride 0.9% Vital signs for last 24 hours: Temp: [37.5 ??C (99.5 ??F)] 37.5 ??C (99.5 ??F) Pulse: [90-102] 92 Resp: [14-29] 15 SpO2: [85 %-100 %] 95 % Arterial Line BP: (95-150)/(43-71) 109/51 FiO2 (%): [21 %] 21 % Hemodynamics: PAP: (21-51)/(10-29) 44/28 PAP (Mean): [16 mmHg-38 mmHg] 35 mmHg CVP: [4 mmHg-255 mmHg] 9 mmHg Pulmonary Support: O2 Therapy: None (Room air) O2 Del Method: Nasal cannula FiO2 (%): 21 % O2 Flow Rate (L/min): 2 L/min FiO2 (%): 21 % Intake/Output: Intake/Output Summary (Last 24 hours) at 07/31/2024 1503 Last data filed at 07/31/2024 1500 Gross per 24 hour Intake 1677.89 ml Output 1145 ml Net 532.89 ml Lab/Radiology/Diagnostic Review: Laboratory review: Lab results in the last 12 hours: Recent Results (from the past 12 hour(s)) Potassium, whole blood Collection Time: 07/31/24 4:22 AM Result Value Ref Range Potassium, bld 3.5 3.3 - 4.9 mmol/L Oxyhemoglobin, pulmonary artery Collection Time: 07/31/24 4:22 AM Result Value Ref Range Oxyhemoglobin, PA 55.5 % Hemoglobin total, pulmonary artery Collection Time: 07/31/24 4:22 AM Result Value Ref Range Hemoglobin total, PA 8.1 (L) 13.0 - 17.5 g/dL Blood gas, arterial Collection Time: 07/31/24 4:22 AM Result Value Ref Range pH, Art 7.44 7.35 - 7.45 PCO2, Arterial 39 35 - 45 mmHg PO2, Arterial 114 (H) 83 - 108 mmHg HCO3 Art (Calculated) 27 20 - 30 mmol/L BE, art 2 mmol/L O2 Sat Art (Measured) 99 (H) 90 - 95 % POCT glucose Collection Time: 07/31/24 7:38 AM Result Value Ref Range Glucose, POC 121 70 - 199 mg/dL Potassium, whole blood Collection Time: 07/31/24 11:24 AM Result Value Ref Range Potassium, bld 3.5 3.3 - 4.9 mmol/L POCT glucose Collection Time: 07/31/24 11:24 AM Result Value Ref Range Glucose, POC 106 70 - 199 mg/dL Recent Results (from the past 48 hour(s)) Potassium, whole blood Collection Time: 07/29/24 4:54 PM Result Value Ref Range Potassium, bld 3.9 3.3 - 4.9 mmol/L POCT glucose Collection Time: 07/29/24 4:56 PM Result Value Ref Range Glucose, POC 150 70 - 199 mg/dL POCT glucose Collection Time: 07/29/24 8:34 PM Result Value Ref Range Glucose, POC 138 70 - 199 mg/dL Oxyhemoglobin, pulmonary artery Collection Time: 07/29/24 9:34 PM Result Value Ref Range Oxyhemoglobin, PA 61.1 % Hemoglobin total, pulmonary artery Collection Time: 07/29/24 9:34 PM Result Value Ref Range Hemoglobin total, PA 7.8 (L) 13.0 - 17.5 g/dL Blood gas, arterial Collection Time: 07/29/24 9:34 PM Result Value Ref Range pH, Art 7.48 (H) 7.35 - 7.45 PCO2, Arterial 42 35 - 45 mmHg PO2, Arterial 130 (H) 83 - 108 mmHg HCO3 Art (Calculated) 32 (H) 20 - 30 mmol/L BE, art 7 mmol/L O2 Sat Art (Measured) 99 (H) 90 - 95 % CBC without differential Collection Time: 07/30/24 1:01 AM Result Value Ref Range WBC 3.8 3.8 - 9.9 K/cumm Hgb 7.6 (L) 13.0 - 17.5 g/dL Hct 24.4 (L) 38.9 - 50.3 % Plt 72 (L) 150 - 400 K/cumm MPV 9.9 9.1 - 12.3 fL RBC 2.88 (L) 4.30 - 5.80 M/cumm MCV 84.7 81.3 - 96.4 fL MCH 26.4 (L) 27.1 - 33.3 pg MCHC 31.1 (L) 32.3 - 35.7 g/dL RDW CV 17.1 (H) 11.1 - 14.9 % RDW SD 52.5 (H) 35.7 - 48.1 fL NRBC abs 0.20 (H) 0.00 - 0.01 K/cumm Basic metabolic panel Collection Time: 07/30/24 1:01 AM Result Value Ref Range Sodium 150 (H) 135 - 145 mmol/L Potassium, pl 3.6 3.3 - 4.9 mmol/L Chloride 107 97 - 110 mmol/L CO2 34 (H) 22 - 32 mmol/L Anion gap 9 2 - 15 mmol/L BUN 56 (H) 6 - 25 mg/dL Creatinine 1.39 (H) 0.80 - 1.30 mg/dL Glucose 148 70 - 199 mg/dL Calcium 9.2 8.5 - 10.3 mg/dL Magnesium Collection Time: 07/30/24 1:01 AM Result Value Ref Range Magnesium 2.0 1.4 - 2.5 mg/dL Phosphorus Collection Time: 07/30/24 1:01 AM Result Value Ref Range Phosphorus, pl 4.1 2.3 - 4.5 mg/dL eGFR Collection Time: 07/30/24 1:01 AM Result Value Ref Range eGFR 54 (L) >=60 mL/min/1.73 m2 Blood gas, arterial Collection Time: 07/30/24 7:48 AM Result Value Ref Range pH, Art 7.46 (H) 7.35 - 7.45 PCO2, Arterial 42 35 - 45 mmHg PO2, Arterial 148 (H) 83 - 108 mmHg HCO3 Art (Calculated) 30 20 - 30 mmol/L BE, art 5 mmol/L O2 Sat Art (Measured) 100 (H) 90 - 95 % Oxyhemoglobin, pulmonary artery Collection Time: 07/30/24 7:48 AM Result Value Ref Range Oxyhemoglobin, PA 70.7 % Hemoglobin total, pulmonary artery Collection Time: 07/30/24 7:48 AM Result Value Ref Range Hemoglobin total, PA 7.6 (L) 13.0 - 17.5 g/dL POCT glucose Collection Time: 07/30/24 7:50 AM Result Value Ref Range Glucose, POC 173 70 - 199 mg/dL POCT glucose Collection Time: 07/30/24 10:56 AM Result Value Ref Range Glucose, POC 141 70 - 199 mg/dL Basic metabolic panel Collection Time: 07/30/24 12:13 PM Result Value Ref Range Sodium 152 (H) 135 - 145 mmol/L Potassium, pl 3.5 3.3 - 4.9 mmol/L Chloride 112 (H) 97 - 110 mmol/L CO2 33 (H) 22 - 32 mmol/L Anion gap 7 2 - 15 mmol/L BUN 56 (H) 6 - 25 mg/dL Creatinine 1.38 (H) 0.80 - 1.30 mg/dL Glucose 153 70 - 199 mg/dL Calcium 8.6 8.5 - 10.3 mg/dL eGFR Collection Time: 07/30/24 12:13 PM Result Value Ref Range eGFR 54 (L) >=60 mL/min/1.73 m2 Type and screen Collection Time: 07/30/24 5:01 PM Result Value Ref Range ABO Rh O Positive Janell, indirect Negative POCT glucose Collection Time: 07/30/24 5:01 PM Result Value Ref Range Glucose, POC 181 70 - 199 mg/dL POCT glucose Collection Time: 07/30/24 8:05 PM Result Value Ref Range Glucose, POC 162 70 - 199 mg/dL CBC without differential Collection Time: 07/30/24 11:39 PM Result Value Ref Range WBC 4.0 3.8 - 9.9 K/cumm Hgb 7.3 (L) 13.0 - 17.5 g/dL Hct 23.5 (L) 38.9 - 50.3 % Plt 91 (L) 150 - 400 K/cumm MPV 11.0 9.1 - 12.3 fL RBC 2.72 (L) 4.30 - 5.80 M/cumm MCV 86.4 81.3 - 96.4 fL MCH 26.8 (L) 27.1 - 33.3 pg MCHC 31.1 (L) 32.3 - 35.7 g/dL RDW CV 16.8 (H) 11.1 - 14.9 % RDW SD 52.2 (H) 35.7 - 48.1 fL NRBC abs 0.14 (H) 0.00 - 0.01 K/cumm Basic metabolic panel Collection Time: 07/30/24 11:39 PM Result Value Ref Range Sodium 148 (H) 135 - 145 mmol/L Potassium, pl 3.3 3.3 - 4.9 mmol/L Chloride 109 97 - 110 mmol/L CO2 30 22 - 32 mmol/L Anion gap 9 2 - 15 mmol/L BUN 56 (H) 6 - 25 mg/dL Creatinine 1.20 0.80 - 1.30 mg/dL Glucose 169 70 - 199 mg/dL Calcium 8.5 8.5 - 10.3 mg/dL Magnesium Collection Time: 07/30/24 11:39 PM Result Value Ref Range Magnesium 2.1 1.4 - 2.5 mg/dL Phosphorus Collection Time: 07/30/24 11:39 PM Result Value Ref Range Phosphorus, pl 3.6 2.3 - 4.5 mg/dL Calcium, ionized Collection Time: 07/30/24 11:39 PM Result Value Ref Range Calcium, Ionized 4.68 4.50 - 5.10 mg/dL Hemoglobin total, pulmonary artery Collection Time: 07/30/24 11:39 PM Result Value Ref Range Hemoglobin total, PA 7.7 (L) 13.0 - 17.5 g/dL Oxyhemoglobin, pulmonary artery Collection Time: 07/30/24 11:39 PM Result Value Ref Range Oxyhemoglobin, PA 62.1 % Blood gas, arterial Collection Time: 07/30/24 11:39 PM Result Value Ref Range pH, Art 7.44 7.35 - 7.45 PCO2, Arterial 38 35 - 45 mmHg PO2, Arterial 114 (H) 83 - 108 mmHg HCO3 Art (Calculated) 27 20 - 30 mmol/L BE, art 2 mmol/L O2 Sat Art (Measured) 99 (H) 90 - 95 % eGFR Collection Time: 07/30/24 11:39 PM Result Value Ref Range eGFR 64 >=60 mL/min/1.73 m2 Potassium, whole blood Collection Time: 07/31/24 4:22 AM Result Value Ref Range Potassium, bld 3.5 3.3 - 4.9 mmol/L Oxyhemoglobin, pulmonary artery Collection Time: 07/31/24 4:22 AM Result Value Ref Range Oxyhemoglobin, PA 55.5 % Hemoglobin total, pulmonary artery Collection Time: 07/31/24 4:22 AM Result Value Ref Range Hemoglobin total, PA 8.1 (L) 13.0 - 17.5 g/dL Blood gas, arterial Collection Time: 07/31/24 4:22 AM Result Value Ref Range pH, Art 7.44 7.35 - 7.45 PCO2, Arterial 39 35 - 45 mmHg PO2, Arterial 114 (H) 83 - 108 mmHg HCO3 Art (Calculated) 27 20 - 30 mmol/L BE, art 2 mmol/L O2 Sat Art (Measured) 99 (H) 90 - 95 % POCT glucose Collection Time: 07/31/24 7:38 AM Result Value Ref Range Glucose, POC 121 70 - 199 mg/dL Potassium, whole blood Collection Time: 07/31/24 11:24 AM Result Value Ref Range Potassium, bld 3.5 3.3 - 4.9 mmol/L POCT glucose Collection Time: 07/31/24 11:24 AM Result Value Ref Range Glucose, POC 106 70 - 199 mg/dL XR Chest 1 View Result Date: 07/29/2024 Median sternotomy plates are again seen. The right internal jugular [place] catheter tip is over the right ventricular outflow tract or main pulmonary artery. Persistence of apparent tight loop of the distal catheter proximal to the tip has persisted on multiple examinations since 07/24/2024 concerning for the possibility of a fixed nodule in the catheter. Right internal jugular central venouscatheter tip at superior cavoatrial junction. Mediastinal drain, pericardial drain, bilateral chesttubes, and epicardial pacing wires again seen. Stable cardiomediastinal silhouette. Mild bibasilar atelectasis is similar to the prior study. Left lateral basilar haziness may be due to the atelectasis or small pleural effusion. No pulmonary edema, consolidation, or pneumothorax. The Critical results were discussed with JUSTYN Marin by Dr. Slade on 07/29/2024 at 0619. Electronically signed by: Preston Slade M.D. XR Chest 1 View Result Date: 07/28/2024 The current study is compared with the prior radiograph dated 07/26/2024 at 8:27 PM. Sternal fixation plates are aligned and intact. Pulmonary artery catheter projects over the right pulmonary artery. Pericardial, mediastinal, and bilateral thoracostomy drains are seen. A right internal jugular approach central venous catheter terminates at the superior vena cava. There is mildly increased left greater than right bibasilar atelectasis. There is trace pulmonary edema. There are no definite pleural effusions. There is no pneumothorax or pneumonia. The cardiac mediastinal silhouette is unchanged. Dictated by: Tone Olson M.D. The radiology attending physician has personally reviewed this study, and had reviewed and/or edited this written report and agrees with it. Electronically signed by:Serafin Terrell M.D. 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 Inhaled Veletri also added w/ improvement in CI and reduction in PA pressures - 07/28: Veletri and Nitro gtt weaned off - 07/30: Epinephrine weaned off - Bumex gtt stopped 07/29 - Aspirin, statin, plavix daily - Imdur daily - Holding GDMT in the acute setting - EPW DDD @ 100--> 07/31: per CTS underlying rhythm in 40s , decreased Pacer to DDD to 90 - Consult EP: obtain EKG with underlying rhythm - 07/31: CTS removed SWAN at bedside - CTS primary #HTN, chronic #HLD, chronic - Holding home carvedilol and Entresto - Continue home statin PULM: #Acute pulmonary insufficiency: - Currently on RA - Aggressive diuresis as needed-> diamox + metolazone - AB.44/39/114/27 -Acapella, IS - Pulm hygiene, SpO2 goal >92%, PT/OT #JACQUELINE, chronic - Home nocturnal CPAP - JACQUELINE precautions GI: #Dysphagia: -Speech following Diet: Start mechanical soft diet with thin liquids 07/31 Bowel regimen: senna, miralax-> 4 X #GERD: chronic -Continue home PPI ENDO: #DM2, chronic - A1C 7.5 - Home regimen: 90 units Lantus - BG 180-> 120 - Lantus 50 units + SSI - Monitor glucose RENAL: #VITALY- improving - BUN/Cr: 56/1.20 - Ongoing diuresis - Castro, strict I/O - Renal dose meds, avoid nephrotoxic agents - Monitor BMP and electrolytes #Hypernatremia: likely 2/2 diuresis -Na 152-->148 -FWD 1.1L (for Na 145) -D5W 50ml/h -Monitor BMP #Hypokalemia: -Potassium repletion HEME: #ABLA: likely 2/2 surgery, labs #Thrombocytopenia: -H/H 7.01/28 -Platelets 91 -No s/s bleeding, no indication for transfusion, continue to monitor closely -Monitor CBC ID: WBC 4. - afebrile - CTM WBC trend and fever curve Intensive Care Unit Standards of Care: DVT prophylaxis: SCDs, SQH Vascular access: R radial dorcas (07/24), RIJ QLC (07/24), PIV x1 Goals of care: Full code Updated pt regarding pt condition and plan of care Assessment and plan discussed with ICU attending/[facility] Performed by: Mala Latif NP Authorized by: Mala Latif NP CRITICAL CARE: Team: 83 CTICU Shift: AM Level of Billing: Critical Care My time spent with this patient was 110 minutes: Critical Provider Statement: I have seen and examined the patient on this day of service. I have reviewed and confirmed the history, physical exam, laboratory and radiologic data as documented in thesigned ICU note. I have reviewed and discussed my treatment plan with the ICU team and other medical/systems consultant staff, making frequent assessments and decisions regarding this patient's complex medical care. Critical Care time was exclusive of time spent performing separately billed procedures, treating other patients, and teaching. This time was in addition to and separate from critical care provided by other practitioners in my group on this day of service. Critical Care was necessary to treat or prevent imminent or life-threatening deterioration of the following conditions: I spent time reviewing and interpreting data from bedside monitors, laboratory results, and imaging, I spent time discussing the management of this critically ill patient with consultants and the medical staff and I spent time documenting in the medical record Cosigned by Feng Sinclair MD at 08/03/2024 5:42 PM CDT * Payton Fernando NP - 07/30/2024 6:37 PM CDTAssociated Order(s): Critical Care Post-Procedure Diagnose(s): Coronary artery disease, unspecified vessel or lesion type, unspecifiedwhether angina present, unspecified whether [facility] or transplanted heart Surgical ICU Daily Progress Team: 8200 PM 2 Subjective Patient is a 74 y.o. male admitted on 07/24/2024 6:02 AM with chief complaint of CAD s/p CABG. Interval History: -BP soft again with seroquel and robaxin dosing. Changed so that future doses are not given together -Potassium repletion -ALEX 3.2-->epi weaned off -FWD 1.1L-->D5W decreased to 50ml/h Objective Physical Exam: Physical Exam General: No Acute Distress Neuro: A&Ox3, follows commands, MAEW Cardiac: S1 and S2, RRR, no M/G/R Pulmonary: Lungs clear to auscultation, respirations even/unlabored Abdominal: Soft/Nontender/Nondistended, normoactive bowel sounds Extremities: Anasarca, PPP, warm, pink Drains: Castro- clear yellow urine Medications Scheduled Meds:aspirin, 81 mg, oral, Daily atorvastatin, 40 mg, oral, Daily clopidogreL, 75 mg, oral, Daily DULoxetine DR, 60 mg, oral, Nightly heparin, 5,000 Units, subcutaneous, Q8H HILDA insulin glargine, 50 Units, subcutaneous, QAM insulin lispro, 0-10 Units, subcutaneous, TID with meals insulin lispro, 0-5 Units, subcutaneous, Nightly isosorbide mononitrate ER, 15 mg, oral, Daily [START ON 07/31/2024] methocarbamoL, 500 mg, oral, TID pantoprazole DR, 40 mg, oral, Daily QUEtiapine, 100 mg, oral, Nightly senna, 1 tablet, oral, BID Continuous Infusions:dextrose 5%, 75 mL/hr, Last Rate: 75 mL/hr (07/30/242099) EPINEPHrine, 0-0.05 mcg/kg/min, Last Rate: 0.01 mcg/kg/min (07/30/242099) Lactated Ringer's, 10 mL/hr, Last Rate: Stopped (07/30/24212) sodium chloride 0.9%, 3-12 mL/hr, Last Rate: 9 mL/hr (07/30/242099) PRN Meds:. dextrose OR dextrose glucagon hydrOXYzine ondansetron oxyCODONE potassium chloride sodium chloride 0.9% Vital signs for last 24 hours: Temp: [36.5 ??C (97.7 ??F)] 36.5 ??C (97.7 ??F) Pulse: [97-105] 100 Resp: [12-20] 15 SpO2: [95 %-100 %] 95 % Arterial Line BP: (102-145)/(46-61) 102/46 FiO2 (%): [40 %] 40 % Hemodynamics: PAP: (20-33)/(9-19) 27/17 PAP (Mean): [14 mmHg-24 mmHg] 21 mmHg CVP: [3 mmHg-29 mmHg] 7 mmHg Pulmonary Support: O2 Therapy: None (Room air) O2 Del Method: Nasal cannula FiO2 (%): 40 % O2 Flow Rate (L/min): 2 L/min FiO2 (%): 40 % Intake/Output: Intake/Output Summary (Last 24 hours) at 07/30/2024 2245 Last data filed at 07/30/2024 2100 Gross per 24 hour Intake 2568.11 ml Output 2085 ml Net 483.11 ml Lab/Radiology/Diagnostic Review: Laboratory review: Lab results in the last 12 hours: Recent Results (from the past 12 hour(s)) POCT glucose Collection Time: 07/30/24 10:56 AM Result Value Ref Range Glucose, POC 141 70 - 199 mg/dL Basic metabolic panel Collection Time: 07/30/24 12:13 PM Result Value Ref Range Sodium 152 (H) 135 - 145 mmol/L Potassium, pl 3.5 3.3 - 4.9 mmol/L Chloride 112 (H) 97 - 110 mmol/L CO2 33 (H) 22 - 32 mmol/L Anion gap 7 2 - 15 mmol/L BUN 56 (H) 6 - 25 mg/dL Creatinine 1.38 (H) 0.80 - 1.30 mg/dL Glucose 153 70 - 199 mg/dL Calcium 8.6 8.5 - 10.3 mg/dL eGFR Collection Time: 07/30/24 12:13 PM Result Value Ref Range eGFR 54 (L) >=60 mL/min/1.73 m2 Type and screen Collection Time: 07/30/24 5:01 PM Result Value Ref Range ABO Rh O Positive Janell, indirect Negative POCT glucose Collection Time: 07/30/24 5:01 PM Result Value Ref Range Glucose, POC 181 70 - 199 mg/dL POCT glucose Collection Time: 07/30/24 8:05 PM Result Value Ref Range Glucose, POC 162 70 - 199 mg/dL Recent Results (from the past 48 hour(s)) POCT glucose Collection Time: 07/29/24 12:30 AM Result Value Ref Range Glucose, POC 147 70 - 199 mg/dL CBC without differential Collection Time: 07/29/24 12:31 AM Result Value Ref Range WBC 4.2 3.8 - 9.9 K/cumm Hgb 7.7 (L) 13.0 - 17.5 g/dL Hct 24.0 (L) 38.9 - 50.3 % Plt 67 (L) 150 - 400 K/cumm MPV 10.3 9.1 - 12.3 fL RBC 2.89 (L) 4.30 - 5.80 M/cumm MCV 83.0 81.3 - 96.4 fL MCH 26.6 (L) 27.1 - 33.3 pg MCHC 32.1 (L) 32.3 - 35.7 g/dL RDW CV 17.1 (H) 11.1 - 14.9 % RDW SD 50.2 (H) 35.7 - 48.1 fL NRBC abs 0.07 (H) 0.00 - 0.01 K/cumm Basic metabolic panel Collection Time: 07/29/24 12:31 AM Result Value Ref Range Sodium 147 (H) 135 - 145 mmol/L Potassium, pl 3.8 3.3 - 4.9 mmol/L Chloride 105 97 - 110 mmol/L CO2 31 22 - 32 mmol/L Anion gap 11 2 - 15 mmol/L BUN 55 (H) 6 - 25 mg/dL Creatinine 1.23 0.80 - 1.30 mg/dL Glucose 147 70 - 199 mg/dL Calcium 8.9 8.5 - 10.3 mg/dL Magnesium Collection Time: 07/29/24 12:31 AM Result Value Ref Range Magnesium 1.9 1.4 - 2.5 mg/dL Phosphorus Collection Time: 07/29/24 12:31 AM Result Value Ref Range Phosphorus, pl 3.3 2.3 - 4.5 mg/dL Oxyhemoglobin, pulmonary artery Collection Time: 07/29/24 12:31 AM Result Value Ref Range Oxyhemoglobin, PA 81.3 % Potassium, whole blood Collection Time: 07/29/24 12:31 AM Result Value Ref Range Potassium, bld 3.9 3.3 - 4.9 mmol/L Blood gas, arterial Collection Time: 07/29/24 12:31 AM Result Value Ref Range pH, Art 7.47 (H) 7.35 - 7.45 PCO2, Arterial 41 35 - 45 mmHg PO2, Arterial 156 (H) 83 - 108 mmHg HCO3 Art (Calculated) 31 (H) 20 - 30 mmol/L BE, art 6 mmol/L O2 Sat Art (Measured) 100 (H) 90 - 95 % eGFR Collection Time: 07/29/24 12:31 AM Result Value Ref Range eGFR 62 >=60 mL/min/1.73 m2 Potassium, whole blood Collection Time: 07/29/24 3:59 AM Result Value Ref Range Potassium, bld 3.8 3.3 - 4.9 mmol/L Potassium, whole blood Collection Time: 07/29/24 8:38 AM Result Value Ref Range Potassium, bld 3.9 3.3 - 4.9 mmol/L Hemoglobin total, pulmonary artery Collection Time: 07/29/24 8:38 AM Result Value Ref Range Hemoglobin total, PA 8.2 (L) 13.0 - 17.5 g/dL Oxyhemoglobin, pulmonary artery Collection Time: 07/29/24 8:38 AM Result Value Ref Range Oxyhemoglobin, PA 56.7 % Blood gas, arterial Collection Time: 07/29/24 8:38 AM Result Value Ref Range pH, Art 7.48 (H) 7.35 - 7.45 PCO2, Arterial 44 35 - 45 mmHg PO2, Arterial 137 (H) 83 - 108 mmHg HCO3 Art (Calculated) 33 (H) 20 - 30 mmol/L BE, art 8 mmol/L O2 Sat Art (Measured) 100 (H) 90 - 95 % POCT glucose Collection Time: 07/29/24 9:14 AM Result Value Ref Range Glucose, POC 158 70 - 199 mg/dL POCT glucose Collection Time: 07/29/24 12:01 PM Result Value Ref Range Glucose, POC 208 (H) 70 - 199 mg/dL Potassium, whole blood Collection Time: 07/29/24 12:24 PM Result Value Ref Range Potassium, bld 4.1 3.3 - 4.9 mmol/L Oxyhemoglobin, pulmonary artery Collection Time: 07/29/24 12:24 PM Result Value Ref Range Oxyhemoglobin, PA 66.2 % Potassium, whole blood Collection Time: 07/29/24 4:54 PM Result Value Ref Range Potassium, bld 3.9 3.3 - 4.9 mmol/L POCT glucose Collection Time: 07/29/24 4:56 PM Result Value Ref Range Glucose, POC 150 70 - 199 mg/dL POCT glucose Collection Time: 07/29/24 8:34 PM Result Value Ref Range Glucose, POC 138 70 - 199 mg/dL Oxyhemoglobin, pulmonary artery Collection Time: 07/29/24 9:34 PM Result Value Ref Range Oxyhemoglobin, PA 61.1 % Hemoglobin total, pulmonary artery Collection Time: 07/29/24 9:34 PM Result Value Ref Range Hemoglobin total, PA 7.8 (L) 13.0 - 17.5 g/dL Blood gas, arterial Collection Time: 07/29/24 9:34 PM Result Value Ref Range pH, Art 7.48 (H) 7.35 - 7.45 PCO2, Arterial 42 35 - 45 mmHg PO2, Arterial 130 (H) 83 - 108 mmHg HCO3 Art (Calculated) 32 (H) 20 - 30 mmol/L BE, art 7 mmol/L O2 Sat Art (Measured) 99 (H) 90 - 95 % CBC without differential Collection Time: 07/30/24 1:01 AM Result Value Ref Range WBC 3.8 3.8 - 9.9 K/cumm Hgb 7.6 (L) 13.0 - 17.5 g/dL Hct 24.4 (L) 38.9 - 50.3 % Plt 72 (L) 150 - 400 K/cumm MPV 9.9 9.1 - 12.3 fL RBC 2.88 (L) 4.30 - 5.80 M/cumm MCV 84.7 81.3 - 96.4 fL MCH 26.4 (L) 27.1 - 33.3 pg MCHC 31.1 (L) 32.3 - 35.7 g/dL RDW CV 17.1 (H) 11.1 - 14.9 % RDW SD 52.5 (H) 35.7 - 48.1 fL NRBC abs 0.20 (H) 0.00 - 0.01 K/cumm Basic metabolic panel Collection Time: 07/30/24 1:01 AM Result Value Ref Range Sodium 150 (H) 135 - 145 mmol/L Potassium, pl 3.6 3.3 - 4.9 mmol/L Chloride 107 97 - 110 mmol/L CO2 34 (H) 22 - 32 mmol/L Anion gap 9 2 - 15 mmol/L BUN 56 (H) 6 - 25 mg/dL Creatinine 1.39 (H) 0.80 - 1.30 mg/dL Glucose 148 70 - 199 mg/dL Calcium 9.2 8.5 - 10.3 mg/dL Magnesium Collection Time: 07/30/24 1:01 AM Result Value Ref Range Magnesium 2.0 1.4 - 2.5 mg/dL Phosphorus Collection Time: 07/30/24 1:01 AM Result Value Ref Range Phosphorus, pl 4.1 2.3 - 4.5 mg/dL eGFR Collection Time: 07/30/24 1:01 AM Result Value Ref Range eGFR 54 (L) >=60 mL/min/1.73 m2 Blood gas, arterial Collection Time: 07/30/24 7:48 AM Result Value Ref Range pH, Art 7.46 (H) 7.35 - 7.45 PCO2, Arterial 42 35 - 45 mmHg PO2, Arterial 148 (H) 83 - 108 mmHg HCO3 Art (Calculated) 30 20 - 30 mmol/L BE, art 5 mmol/L O2 Sat Art (Measured) 100 (H) 90 - 95 % Oxyhemoglobin, pulmonary artery Collection Time: 07/30/24 7:48 AM Result Value Ref Range Oxyhemoglobin, PA 70.7 % Hemoglobin total, pulmonary artery Collection Time: 07/30/24 7:48 AM Result Value Ref Range Hemoglobin total, PA 7.6 (L) 13.0 - 17.5 g/dL POCT glucose Collection Time: 07/30/24 7:50 AM Result Value Ref Range Glucose, POC 173 70 - 199 mg/dL POCT glucose Collection Time: 07/30/24 10:56 AM Result Value Ref Range Glucose, POC 141 70 - 199 mg/dL Basic metabolic panel Collection Time: 07/30/24 12:13 PM Result Value Ref Range Sodium 152 (H) 135 - 145 mmol/L Potassium, pl 3.5 3.3 - 4.9 mmol/L Chloride 112 (H) 97 - 110 mmol/L CO2 33 (H) 22 - 32 mmol/L Anion gap 7 2 - 15 mmol/L BUN 56 (H) 6 - 25 mg/dL Creatinine 1.38 (H) 0.80 - 1.30 mg/dL Glucose 153 70 - 199 mg/dL Calcium 8.6 8.5 - 10.3 mg/dL eGFR Collection Time: 07/30/24 12:13 PM Result Value Ref Range eGFR 54 (L) >=60 mL/min/1.73 m2 Type and screen Collection Time: 07/30/24 5:01 PM Result Value Ref Range ABO Rh O Positive Janell, indirect Negative POCT glucose Collection Time: 07/30/24 5:01 PM Result Value Ref Range Glucose, POC 181 70 - 199 mg/dL POCT glucose Collection Time: 07/30/24 8:05 PM Result Value Ref Range Glucose, POC 162 70 - 199 mg/dL XR Chest 1 View Result Date: 07/29/2024 Median sternotomy plates are again seen. The right internal jugular [place] catheter tip is over the right ventricular outflow tract or main pulmonary artery. Persistence of apparent tight loop of the distal catheter proximal to the tip has persisted on multiple examinations since 07/24/2024 concerning for the possibility of a fixed nodule in the catheter. Right internal jugular central venous catheter tip at superior cavoatrial junction. Mediastinal drain, pericardial drain, bilateral chest tubes, and epicardial pacing wires again seen. Stable cardiomediastinal silhouette. Mild bibasilar atelectasis is similar to the prior study. Left lateral basilar haziness may be due to the atelectasis or small pleural effusion. No pulmonary edema, consolidation, or pneumothorax. The Critical results were discussed with JUSTYN Marin by Dr. Slade on 07/29/2024 at 0619. Electronically signed by: DavidS. Yany M.D. XR Chest 1 View Result Date: 07/28/2024 The current study is compared with the prior radiograph dated 07/26/2024 at 8:27 PM. Sternal fixation plates are aligned and intact. Pulmonary artery catheter projects over the right pulmonary artery. Pericardial, mediastinal, and bilateral thoracostomy drains are seen. A right internal jugular approach central venous catheter terminates at the superior vena cava. There is mildly increased left greater than right bibasilar atelectasis. There is trace pulmonary edema. There are no definite pleural effusions. There is no pneumothorax or pneumonia. The cardiac mediastinal silhouette is unchanged. Dictated by: Tone Olson M.D. The radiology attending physician has personally reviewed this study, and had reviewed and/or edited this written report and agrees with it. Electronically signed by:Serafin Terrell M.D. Assessment/Plan Principal Problem: CAD, multiple vessel Active Problems: Coronary arteriosclerosis Coronary artery disease due to calcified coronary lesion NEURO: #Acute on chronic pain - Scheduled APAP - Home robaxin TID - PRN oxycodone - Monitor pain #Mood disorder, chronic - Continue home Cymbalta #Anxiety: -PRN Atarax #ICU delirium - Seroquel 100 mg QPM - Delirium precautions CV: #CAD, chronic #Cardiogenic shock, POA #Pulmonary hypertension, POA - s/p 07/24: CABG x3 (BURGESS to LAD, left radial to OM, SVG to PDA) and sternal plating - Post CPB EMILE on GROVE SUPERINTENDENT 5 w/ mildly improved LV function (from 40-50% pre CPB), mild RV dysfunction - 07/24 PM: Changed to Epi d/t low SVR and high pressor requirement 07/25: Epi increased d/t CI dropping to 1.9-2 and PA pressures increasing to 1/2 systemic. Inhaled Veletri also added w/ improvement in CI and reduction in PA pressures - 07/28: Veletri and Nitro gtt weaned off - Epi wean q12 hours if SvO2 >60/ALEX >2.2-->ALEX 3.2, epi weaned off tonight - Bumex gtt stopped 07/29 - Aspirin, statin, plavix daily - Imdur daily - Holding GDMT in the acute setting - EPW DDD @ 100-->plan for EP c/s tomorrow to evaluate underlying rhythm - CTS primary #HTN, chronic #HLD, chronic - Holding home carvedilol and Entresto - Continue home statin PULM: #Acute pulmonary insufficiency: - Currently on NC, 2L - Aggressive diuresis as needed, held today -Acapella, IS - Pulm hygiene, SpO2 goal >92%, PT/OT #JACQUELINE, chronic - Home nocturnal CPAP - JACQUELINE precautions GI: Diet: NPO except crushed meds in applesauce Bowel regimen: senna, miralax #Dysphagia: -Speech following -Patient sleepy when they assessed today -Plan for NPO, only crushed meds with applesauce and reevaluation by speech #GERD: chronic -Continue home PPI ENDO: #DM2, chronic - A1C 7.5 - Home regimen: 90 units Lantus - Lantus 50 units + SSI - Monitor glucose RENAL: #VITALY- improving - BUN/Cr: 56/1.20 - Ongoing diuresis - Castro, strict I/O - Renal dose meds, avoid nephrotoxic agents - Monitor BMP and electrolytes #Hypernatremia: likely 2/2 diuresis -Na 152-->148 -FWD 1.1L (for Na 145) -D5W decreased to 50ml/h -Monitor BMP #Hypokalemia: -Potassium repletion HEME: #ABLA: likely 2/2 surgery, labs #Thrombocytopenia: -H/H 7.3 -Platelets 91 -No s/s bleeding, no indication for transfusion, continue to monitor closely -Monitor CBC ID: WBC 4. No signs of infection. Intensive Care Unit Standards of Care: DVT prophylaxis: SCDs, SQH Vascular access: R radial dorcas (07/24), RIJ QLC (07/24), PIV x1 Goals of care: Full code Assessment and plan has been reviewed with attending Payton Fernando NP Critical Care Performed by: Payton Fernando NP Authorized by: Payton Fernando NP CRITICAL CARE: Team: 83 CTICU Shift: PM Level of Billing: Critical Care My time spent with this patient was 85 minutes: Critical Provider Statement: I have seen and examined the patient on this day of service. I have reviewed and confirmed the history, physical exam, laboratory and radiologic data as documented in thesigned ICU note. I have reviewed and discussed my treatment plan with the ICU team and other medical/systems consultant staff, making frequent assessments and decisions regarding this patient's complex medical care. Critical Care time was exclusive of time spent performing separately billed procedures, treating other patients, and teaching. This time was in addition to and separate from critical care provided by other practitioners in my group on this day of service. Critical Care was necessary to treat or prevent imminent or life-threatening deterioration of the following conditions: I spent time reviewing and interpreting data from bedside monitors, laboratory results, and imaging, I spent time discussing the management of this critically ill patient with consultants and the medical staff and I spent time documenting in the medical record Cosigned by Feng Sinclair MD at 07/31/2024 2:12 PM CDT * Shantal Elizabeth NP - 07/30/2024 7:48 AM CDTAssociated Order(s): Critical Care Post-Procedure Diagnose(s): Coronary artery disease, unspecified vessel or lesion type, unspecifiedwhether angina present, unspecified whether [facility] or transplanted heart CT ICU Daily Progress Team: 8200 Blue 2 AM Subjective Abiel Fink is a 74 y.o. male admitted on 07/24/2024 6:02 AM with chief complaint of CAD. PMH: HTN, HLD, CAD, moderate MR, 2nd degree AV block, asthma, JACQUELINE, pHTN, hepatic steatosis, GERD, hiatal hernia, DM Type II (Hgb A1c7.5), pituitary adenoma, obesity Abbreviated Hospital Course: 07/24: CABG x 3 (BURGESS to LAD, left radial to OM, SVG to PDA and sternal plating. Patient did have significant radial artery spasm, treated with papaverine and nitroglycerin. Prior to the case, patientwith known RV dysfunction. During EMILE, RV function improved with MAPs in the 80s, so levophed continued. OR totals: 1L crystalloid, 1 unit PRBC, 1 unit FFP, 1 unit PLT. A and V wires placed. MCT x 2 and bilateral chest tubes. Changed from GROVE SUPERINTENDENT to Epi. 07/25: Inhaled Veletri added for worsening RV dysfunction. 07/26: Unable to wean Veletri d/t increasing PA pressures 07/27: Veletri wean, epi at 0.05 07/28: Veletri weaned off 07/29: Epi wean Interval History: - AM Seroquel d/c, PM dose increased to 100 mg - 500 cc LR bolus for hypotension - Epi weaned to 0.01, plan to wean off at 2200 - NPO, per [employer], ok for crushed meds in applesauce. Plan to reassess tomorrow for possible FEES. - Potassium repleted - D5W increased to 75 mL/hr (Na 152) - EP c/s Wednesday Objective Physical Exam: General: No Acute Distress, resting in bed Neuro: A&Ox4, follows commands, LANDRUM, PERRL Cardiac: S1 and S2, Regular Rate and Rhythm, epicardial pacer wires DDD @ 100 Pulmonary: Lungs diminished to auscultation, respirations even/unlabored on NC Abdominal: Soft/Nontender/Nondistended, normoactive bowel sounds Extremities: BLE edema, Pulses Present and Palpable Drains: Castro Wounds: See RN flowsheet Vital signs for last 24 hours: Pulse: [100-116] 105 Resp: [12-30] 16 SpO2: [93 %-99 %] 99 % Arterial Line BP: (105-163)/(46-74) 131/58 Hemodynamics: PAP: (20-45)/(9-27) 33/16 PAP (Mean): [14 mmHg-33 mmHg] 24 mmHg CVP: [0 mmHg-28 mmHg] 14 mmHg Pulmonary Support: O2 Therapy: Supplemental oxygen O2 Del Method: CPAP prongs FiO2 (%): 40 % O2 Flow Rate (L/min): 2 L/min Intake/Output: Intake/Output Summary (Last 24 hours) at 07/30/2024 0749 Last data filed at 07/30/2024 0700 Gross per 24 hour Intake 1429.92 ml Output 4460 ml Net -3030.08 ml Lab/Radiology/Diagnostic Review: Laboratory review: Lab results in the last 12 hours: Recent Results (from the past 12 hour(s)) POCT glucose Collection Time: 07/29/24 8:34 PM Result Value Ref Range Glucose, POC 138 70 - 199 mg/dL Oxyhemoglobin, pulmonary artery Collection Time: 07/29/24 9:34 PM Result Value Ref Range Oxyhemoglobin, PA 61.1 % Hemoglobin total, pulmonary artery Collection Time: 07/29/24 9:34 PM Result Value Ref Range Hemoglobin total, PA 7.8 (L) 13.0 - 17.5 g/dL Blood gas, arterial Collection Time: 07/29/24 9:34 PM Result Value Ref Range pH, Art 7.48 (H) 7.35 - 7.45 PCO2, Arterial 42 35 - 45 mmHg PO2, Arterial 130 (H) 83 - 108 mmHg HCO3 Art (Calculated) 32 (H) 20 - 30 mmol/L BE, art 7 mmol/L O2 Sat Art (Measured) 99 (H) 90 - 95 % CBC without differential Collection Time: 07/30/24 1:01 AM Result Value Ref Range WBC 3.8 3.8 - 9.9 K/cumm Hgb 7.6 (L) 13.0 - 17.5 g/dL Hct 24.4 (L) 38.9 - 50.3 % Plt 72 (L) 150 - 400 K/cumm MPV 9.9 9.1 - 12.3 fL RBC 2.88 (L) 4.30 - 5.80 M/cumm MCV 84.7 81.3 - 96.4 fL MCH 26.4 (L) 27.1 - 33.3 pg MCHC 31.1 (L) 32.3 - 35.7 g/dL RDW CV 17.1 (H) 11.1 - 14.9 % RDW SD 52.5 (H) 35.7 - 48.1 fL NRBC abs 0.20 (H) 0.00 - 0.01 K/cumm Basic metabolic panel Collection Time: 07/30/24 1:01 AM Result Value Ref Range Sodium 150 (H) 135 - 145 mmol/L Potassium, pl 3.6 3.3 - 4.9 mmol/L Chloride 107 97 - 110 mmol/L CO2 34 (H) 22 - 32 mmol/L Anion gap 9 2 - 15 mmol/L BUN 56 (H) 6 - 25 mg/dL Creatinine 1.39 (H) 0.80 - 1.30 mg/dL Glucose 148 70 - 199 mg/dL Calcium 9.2 8.5 - 10.3 mg/dL Magnesium Collection Time: 07/30/24 1:01 AM Result Value Ref Range Magnesium 2.0 1.4 - 2.5 mg/dL Phosphorus Collection Time: 07/30/24 1:01 AM Result Value Ref Range Phosphorus, pl 4.1 2.3 - 4.5 mg/dL eGFR Collection Time: 07/30/24 1:01 AM Result Value Ref Range eGFR 54 (L) >=60 mL/min/1.73 m2 Assessment/Plan Principal Problem: CAD, multiple vessel Active Problems: Coronary arteriosclerosis Coronary artery disease due to calcified coronary lesion Plan of care: Neurologic: #Acute post-op pain - Scheduled acetaminophen, robaxin - PRN oxycodone - Monitor for pain goal <4 #Mood disorder, chronic - Continue home Cymbalta #ICU delirium - Seroquel 25 mg AM, 50 mg PM - Delirium precautions Overall CAM-ICU: Negative (07/29/241999) Cardiovascular: #CAD, chronic #Cardiogenic shock, POA #Elevated lactate- Resolved #Pulmonary hypertension, POA - s/p 07/24: CABG x3 (BURGESS to LAD, left radial to OM, SVG to PDA) and sternal plating - Post CPB EMILE on GROVE SUPERINTENDENT 5 w/ mildly improved LV function (from 40-50% pre CPB), mild RV dysfunction - 07/24 PM: Changed to Epi last d/t low SVR and high pressor requirement. 07/25: Epi increased to 0.09 d/t CI dropping to 1.9-2 and PA pressures increasing to 1/2 systemic. Inhaled Veletri also added w/ improvement in CI and reduction in PA pressures - 07/28: Veletri weaned off - 07/29: Bumex gtt weaned off - Epi wean q12 hours - Aspirin, statin, plavix daily - Holding GDMT in the acute setting - EPW DDD @ 100 - Plan to consult EP tomorrow - CTS primary #HTN, chronic #HLD, chronic - Holding home carvedilol - Continue home statin Pulmonary: #Acute hypoxic respiratory insufficiency - Currently on NC - CXR, ABG as indicated - Pulm hygiene, SpO2 goal >92%, IS/VAP ppx, PT/OT #JACQUELINE, chronic - Home nocturnal CPAP - JACQUELINE precautions GI: - Diet: Cardiac - Bowel regimen: Bisacodyl, miralax, senna #GERD, chronic - Continue home PPI Endocrine: #DM2, chronic - A1C 7.5 - Home regimen: 90 units Lantus - Lantus 50 units + SSI Renal: #VITALY- Resolving - BUN/Cr: 56/ 1.39 - Castro, strict I/O - Renal dose meds, avoid nephrotoxic agents, f/u BMP Hematology: #ABLA #Thrombocytopenia - H&H: 7.6/ 24.4 - PLT: 72 - No s/s active bleeding, will continue to monitor closely, f/u CBC - DVT PPx: SCDs, SQH ID: - WBC: 3.8 - Afebrile - s/p Becca-op Ancef - Continue to trend WBC, fever curve Intensive Care Unit Standards of Care: DVT prophylaxis: SCDs, SQH Vascular access: Right radial arterial line (07/24), RIJ QLC (07/24), PIV x1 Goals of care: Full code 8200 Blue 2 AM Assessment and plan has been reviewed with fellow and ICU attending, Dr. Sinclair. Shantal Elizabeth NP Critical Care Performed by: Shantal Elizabeth NP Authorized by: Shantal Elizabeth NP CRITICAL CARE: Team: 83 CTICU Shift: AM Level of Billing: Critical Care My time spent with this patient was 75 minutes: Critical Provider Statement: I have seen and examined the patient on this day of service. I have reviewed and confirmed the history, physical exam, laboratory and radiologic data as documented in thesigned ICU note. I have reviewed and discussed my treatment plan with the ICU team and other medical/systems consultant staff, making frequent assessments and decisions regarding this patient's complex medical care. Critical Care time was exclusive of time spent performing separately billed procedures, treating other patients, and teaching. This time was in addition to and separate from critical care provided by other practitioners in my group on this day of service. Critical Care was necessary to treat or prevent imminent or life-threatening deterioration of the following conditions: I spent time reviewing and interpreting data from bedside monitors, laboratory results, and imaging, I spent time discussing the management of this critically ill patient with consultants and the medical staff and I spent time documenting in the medical record Cosigned by Feng Sinclair MD at 08/03/2024 5:45 PM CDT * Payton Fernando NP - 07/29/2024 6:41 PM CDTAssociated Order(s): Critical Care Post-Procedure Diagnose(s): Coronary artery disease, unspecified vessel or lesion type, unspecifiedwhether angina present, unspecified whether [facility] or transplanted heart Surgical ICU Daily Progress Team: 8200 PM 2 Subjective Patient is a 74 y.o. male admitted on 07/24/2024 6:02 AM with chief complaint of CAD s/p CABG. Interval History: -ALEX 3.1, SVO2 61. Epi weaned to 0.02. -Hypernatremic- FWD ~1.3L for Na 145. D5W started at 50mlh -Potassium repletion Objective Physical Exam: Physical Exam General: No Acute Distress Neuro: A&Ox3, follows commands, MAEW Cardiac: S1 and S2, RRR, no M/G/R Pulmonary: Lungs clear to auscultation, respirations even/unlabored Abdominal: Soft/Nontender/Nondistended, normoactive bowel sounds Extremities: Anasarca, PPP, warm, pink Drains: Castro- clear yellow urine Medications Scheduled Meds:acetaZOLAMIDE, 500 mg, intravenous, Q8H HILDA aspirin, 81 mg, oral, Daily atorvastatin, 40 mg, oral, Daily chlorhexidine, 15 mL, swish & spit, TID clopidogreL, 75 mg, oral, Daily DULoxetine DR, 60 mg, oral, Nightly heparin, 5,000 Units, subcutaneous, Q8H HILDA insulin glargine, 50 Units, subcutaneous, QAM insulin lispro, 0-10 Units, subcutaneous, TID with meals insulin lispro, 0-5 Units, subcutaneous, Nightly isosorbide mononitrate ER, 15 mg, oral, Daily methocarbamoL, 500 mg, oral, TID mineral oil, 1 enema, rectal, Once pantoprazole DR, 40 mg, oral, Daily polyethylene glycol, 17 g, oral, BID QUEtiapine, 25 mg, oral, Daily QUEtiapine, 50 mg, oral, Nightly senna, 1 tablet, oral, BID Continuous Infusions:EPINEPHrine, 0-0.05 mcg/kg/min, Last Rate: 0.03 mcg/kg/min (07/29/24 1210) Lactated Ringer's, 10 mL/hr, Last Rate: 10 mL/hr (07/28/242299) sodium chloride 0.9%, 3-12 mL/hr, Last Rate: 9 mL/hr (07/28/242299) PRN Meds:.??? dextrose OR dextrose ??? glucagon ??? hydrOXYzine ??? ondansetron ??? oxyCODONE ??? potassium chloride ??? sodium chloride 0.9% Vital signs for last 24 hours: Pulse: [98-116] 101 Resp: [12-30] 16 SpO2: [93 %-100 %] 95 % Arterial Line BP: (115-163)/(51-74) 115/53 Hemodynamics: PAP: (20-45)/(10-30) 25/18 PAP (Mean): [15 mmHg-34 mmHg] 20 mmHg CVP: [4 mmHg-29 mmHg] 4 mmHg Pulmonary Support: O2 Therapy: Supplemental oxygen O2 Del Method: Nasal cannula FiO2 (%): 40 % O2 Flow Rate (L/min): 2 L/min Intake/Output: Intake/Output Summary (Last 24 hours) at 07/29/2024 1841 Last data filed at 07/29/2024 1834 Gross per 24 hour Intake 1349.26 ml Output 5020 ml Net -3670.74 ml Lab/Radiology/Diagnostic Review: Laboratory review: Lab results in the last 12 hours: Recent Results (from the past 12 hour(s)) POCT glucose Collection Time: 07/29/24 12:01 PM Result Value Ref Range Glucose, POC 208 (H) 70 - 199 mg/dL Potassium, whole blood Collection Time: 07/29/24 12:24 PM Result Value Ref Range Potassium, bld 4.1 3.3 - 4.9 mmol/L Oxyhemoglobin, pulmonary artery Collection Time: 07/29/24 12:24 PM Result Value Ref Range Oxyhemoglobin, PA 66.2 % Potassium, whole blood Collection Time: 07/29/24 4:54 PM Result Value Ref Range Potassium, bld 3.9 3.3 - 4.9 mmol/L POCT glucose Collection Time: 07/29/24 4:56 PM Result Value Ref Range Glucose, POC 150 70 - 199 mg/dL POCT glucose Collection Time: 07/29/24 8:34 PM Result Value Ref Range Glucose, POC 138 70 - 199 mg/dL Recent Results (from the past 48 hour(s)) Potassium, whole blood Collection Time: 07/27/24 8:47 PM Result Value Ref Range Potassium, bld 3.7 3.3 - 4.9 mmol/L Blood gas, arterial Collection Time: 07/27/24 8:47 PM Result Value Ref Range pH, Art 7.46 (H) 7.35 - 7.45 PCO2, Arterial 38 35 - 45 mmHg PO2, Arterial 137 (H) 83 - 108 mmHg HCO3 Art (Calculated) 28 20 - 30 mmol/L BE, art 3 mmol/L O2 Sat Art (Measured) 100 (H) 90 - 95 % POCT glucose Collection Time: 07/27/24 8:47 PM Result Value Ref Range Glucose, POC 193 70 - 199 mg/dL POCT glucose Collection Time: 07/27/24 11:50 PM Result Value Ref Range Glucose, POC 186 70 - 199 mg/dL Potassium, whole blood Collection Time: 07/28/24 12:03 AM Result Value Ref Range Potassium, bld 3.8 3.3 - 4.9 mmol/L CBC without differential Collection Time: 07/28/24 12:03 AM Result Value Ref Range WBC 8.6 3.8 - 9.9 K/cumm Hgb 8.1 (L) 13.0 - 17.5 g/dL Hct 25.5 (L) 38.9 - 50.3 % Plt 75 (L) 150 - 400 K/cumm MPV 10.3 9.1 - 12.3 fL RBC 3.05 (L) 4.30 - 5.80 M/cumm MCV 83.6 81.3 - 96.4 fL MCH 26.6 (L) 27.1 - 33.3 pg MCHC 31.8 (L) 32.3 - 35.7 g/dL RDW CV 17.1 (H) 11.1 - 14.9 % RDW SD 50.9 (H) 35.7 - 48.1 fL NRBC abs 0.02 (H) 0.00 - 0.01 K/cumm Basic metabolic panel Collection Time: 07/28/24 12:03 AM Result Value Ref Range Sodium 145 135 - 145 mmol/L Potassium, pl 3.9 3.3 - 4.9 mmol/L Chloride 105 97 - 110 mmol/L CO2 30 22 - 32 mmol/L Anion gap 10 2 - 15 mmol/L BUN 47 (H) 6 - 25 mg/dL Creatinine 1.12 0.80 - 1.30 mg/dL Glucose 187 70 - 199 mg/dL Calcium 8.8 8.5 - 10.3 mg/dL Magnesium Collection Time: 07/28/24 12:03 AM Result Value Ref Range Magnesium 1.8 1.4 - 2.5 mg/dL Phosphorus Collection Time: 07/28/24 12:03 AM Result Value Ref Range Phosphorus, pl 3.4 2.3 - 4.5 mg/dL Oxyhemoglobin, pulmonary artery Collection Time: 07/28/24 12:03 AM Result Value Ref Range Oxyhemoglobin, PA 74.3 % Hemoglobin total, pulmonary artery Collection Time: 07/28/24 12:03 AM Result Value Ref Range Hemoglobin total, PA 8.4 (L) 13.0 - 17.5 g/dL Blood gas, arterial Collection Time: 07/28/24 12:03 AM Result Value Ref Range pH, Art 7.42 7.35 - 7.45 PCO2, Arterial 42 35 - 45 mmHg PO2, Arterial 83 83 - 108 mmHg HCO3 Art (Calculated) 28 20 - 30 mmol/L BE, art 3 mmol/L O2 Sat Art (Measured) 97 (H) 90 - 95 % Lactate Collection Time: 07/28/24 12:03 AM Result Value Ref Range Lactate 1.4 0.7 - 2.0 mmol/L eGFR Collection Time: 07/28/24 12:03 AM Result Value Ref Range eGFR 70 >=60 mL/min/1.73 m2 Potassium, whole blood Collection Time: 07/28/24 4:10 AM Result Value Ref Range Potassium, bld 3.8 3.3 - 4.9 mmol/L POCT glucose Collection Time: 07/28/24 4:10 AM Result Value Ref Range Glucose, POC 180 70 - 199 mg/dL Potassium, whole blood Collection Time: 07/28/24 7:37 AM Result Value Ref Range Potassium, bld 3.9 3.3 - 4.9 mmol/L POCT glucose Collection Time: 07/28/24 7:43 AM Result Value Ref Range Glucose, POC 154 70 - 199 mg/dL Potassium, whole blood Collection Time: 07/28/24 12:08 PM Result Value Ref Range Potassium, bld 3.8 3.3 - 4.9 mmol/L POCT glucose Collection Time: 07/28/24 12:08 PM Result Value Ref Range Glucose, POC 182 70 - 199 mg/dL Potassium, whole blood Collection Time: 07/28/24 4:06 PM Result Value Ref Range Potassium, bld 3.5 3.3 - 4.9 mmol/L Blood gas, arterial Collection Time: 07/28/24 4:06 PM Result Value Ref Range pH, Art 7.47 (H) 7.35 - 7.45 PCO2, Arterial 39 35 - 45 mmHg PO2, Arterial 132 (H) 83 - 108 mmHg HCO3 Art (Calculated) 29 20 - 30 mmol/L BE, art 4 mmol/L O2 Sat Art (Measured) 100 (H) 90 - 95 % Oxyhemoglobin, central venous Collection Time: 07/28/24 4:06 PM Result Value Ref Range Oxyhemoglobin, CV 66.8 % Hemoglobin total, central venous Collection Time: 07/28/24 4:06 PM Result Value Ref Range Hemoglobin total, CV 10.1 (L) 13.0 - 17.5 g/dL POCT glucose Collection Time: 07/28/24 4:09 PM Result Value Ref Range Glucose, POC 187 70 - 199 mg/dL POCT glucose Collection Time: 07/28/24 5:57 PM Result Value Ref Range Glucose, POC 188 70 - 199 mg/dL POCT glucose Collection Time: 07/28/24 7:42 PM Result Value Ref Range Glucose, POC 173 70 - 199 mg/dL Potassium, whole blood Collection Time: 07/28/24 7:45 PM Result Value Ref Range Potassium, bld 3.6 3.3 - 4.9 mmol/L Hemoglobin total, pulmonary artery Collection Time: 07/28/24 7:45 PM Result Value Ref Range Hemoglobin total, PA 9.7 (L) 13.0 - 17.5 g/dL Oxyhemoglobin, pulmonary artery Collection Time: 07/28/24 7:45 PM Result Value Ref Range Oxyhemoglobin, PA 54.2 % Blood gas, arterial Collection Time: 07/28/24 7:45 PM Result Value Ref Range pH, Art 7.47 (H) 7.35 - 7.45 PCO2, Arterial 40 35 - 45 mmHg PO2, Arterial 123 (H) 83 - 108 mmHg HCO3 Art (Calculated) 30 20 - 30 mmol/L BE, art 5 mmol/L O2 Sat Art (Measured) 99 (H) 90 - 95 % POCT glucose Collection Time: 07/29/24 12:30 AM Result Value Ref Range Glucose, POC 147 70 - 199 mg/dL CBC without differential Collection Time: 07/29/24 12:31 AM Result Value Ref Range WBC 4.2 3.8 - 9.9 K/cumm Hgb 7.7 (L) 13.0 - 17.5 g/dL Hct 24.0 (L) 38.9 - 50.3 % Plt 67 (L) 150 - 400 K/cumm MPV 10.3 9.1 - 12.3 fL RBC 2.89 (L) 4.30 - 5.80 M/cumm MCV 83.0 81.3 - 96.4 fL MCH 26.6 (L) 27.1 - 33.3 pg MCHC 32.1 (L) 32.3 - 35.7 g/dL RDW CV 17.1 (H) 11.1 - 14.9 % RDW SD 50.2 (H) 35.7 - 48.1 fL NRBC abs 0.07 (H) 0.00 - 0.01 K/cumm Basic metabolic panel Collection Time: 07/29/24 12:31 AM Result Value Ref Range Sodium 147 (H) 135 - 145 mmol/L Potassium, pl 3.8 3.3 - 4.9 mmol/L Chloride 105 97 - 110 mmol/L CO2 31 22 - 32 mmol/L Anion gap 11 2 - 15 mmol/L BUN 55 (H) 6 - 25 mg/dL Creatinine 1.23 0.80 - 1.30 mg/dL Glucose 147 70 - 199 mg/dL Calcium 8.9 8.5 - 10.3 mg/dL Magnesium Collection Time: 07/29/24 12:31 AM Result Value Ref Range Magnesium 1.9 1.4 - 2.5 mg/dL Phosphorus Collection Time: 07/29/24 12:31 AM Result Value Ref Range Phosphorus, pl 3.3 2.3 - 4.5 mg/dL Oxyhemoglobin, pulmonary artery Collection Time: 07/29/24 12:31 AM Result Value Ref Range Oxyhemoglobin, PA 81.3 % Potassium, whole blood Collection Time: 07/29/24 12:31 AM Result Value Ref Range Potassium, bld 3.9 3.3 - 4.9 mmol/L Blood gas, arterial Collection Time: 07/29/24 12:31 AM Result Value Ref Range pH, Art 7.47 (H) 7.35 - 7.45 PCO2, Arterial 41 35 - 45 mmHg PO2, Arterial 156 (H) 83 - 108 mmHg HCO3 Art (Calculated) 31 (H) 20 - 30 mmol/L BE, art 6 mmol/L O2 Sat Art (Measured) 100 (H) 90 - 95 % eGFR Collection Time: 07/29/24 12:31 AM Result Value Ref Range eGFR 62 >=60 mL/min/1.73 m2 Potassium, whole blood Collection Time: 07/29/24 3:59 AM Result Value Ref Range Potassium, bld 3.8 3.3 - 4.9 mmol/L Potassium, whole blood Collection Time: 07/29/24 8:38 AM Result Value Ref Range Potassium, bld 3.9 3.3 - 4.9 mmol/L Hemoglobin total, pulmonary artery Collection Time: 07/29/24 8:38 AM Result Value Ref Range Hemoglobin total, PA 8.2 (L) 13.0 - 17.5 g/dL Oxyhemoglobin, pulmonary artery Collection Time: 07/29/24 8:38 AM Result Value Ref Range Oxyhemoglobin, PA 56.7 % Blood gas, arterial Collection Time: 07/29/24 8:38 AM Result Value Ref Range pH, Art 7.48 (H) 7.35 - 7.45 PCO2, Arterial 44 35 - 45 mmHg PO2, Arterial 137 (H) 83 - 108 mmHg HCO3 Art (Calculated) 33 (H) 20 - 30 mmol/L BE, art 8 mmol/L O2 Sat Art (Measured) 100 (H) 90 - 95 % POCT glucose Collection Time: 07/29/24 9:14 AM Result Value Ref Range Glucose, POC 158 70 - 199 mg/dL POCT glucose Collection Time: 07/29/24 12:01 PM Result Value Ref Range Glucose, POC 208 (H) 70 - 199 mg/dL Potassium, whole blood Collection Time: 07/29/24 12:24 PM Result Value Ref Range Potassium, bld 4.1 3.3 - 4.9 mmol/L Oxyhemoglobin, pulmonary artery Collection Time: 07/29/24 12:24 PM Result Value Ref Range Oxyhemoglobin, PA 66.2 % Potassium, whole blood Collection Time: 07/29/24 4:54 PM Result Value Ref Range Potassium, bld 3.9 3.3 - 4.9 mmol/L POCT glucose Collection Time: 07/29/24 4:56 PM Result Value Ref Range Glucose, POC 150 70 - 199 mg/dL XR Chest 1 View Result Date: 07/29/2024 Median sternotomy plates are again seen. The right internal jugular [place] catheter tip is over the right ventricular outflow tract or main pulmonary artery. Persistence of apparent tight loop of the distal catheter proximal to the tip has persisted on multiple examinations since 07/24/2024 concerning for the possibility of a fixed nodule in the catheter. Right internal jugular central venous catheter tip at superior cavoatrial junction. Mediastinal drain, pericardial drain, bilateral chest tubes, and epicardial pacing wires again seen. Stable cardiomediastinal silhouette. Mild bibasilar atelectasis is similar to the prior study. Left lateral basilar haziness may be due to the atelectasis or small pleural effusion. No pulmonary edema, consolidation, or pneumothorax. The Critical results were discussed with JUSTYN Marin by Dr. Slade on 07/29/2024 at 0619. Electronically signed by: DavidS. Yany M.D. XR Chest 1 View Result Date: 07/28/2024 The current study is compared with the prior radiograph dated 07/26/2024 at 8:27 PM. Sternal fixation plates are aligned and intact. Pulmonary artery catheter projects over the right pulmonary artery. Pericardial, mediastinal, and bilateral thoracostomy drains are seen. A right internal jugular approach central venous catheter terminates at the superior vena cava. There is mildly increased left greater than right bibasilar atelectasis. There is trace pulmonary edema. There are no definite pleural effusions. There is no pneumothorax or pneumonia. The cardiac mediastinal silhouette is unchanged. Dictated by: Tone Olson M.D. The radiology attending physician has personally reviewed this study, and had reviewed and/or edited this written report and agrees with it. Electronically signed by:Serafin Terrell M.D. Assessment/Plan Principal Problem: CAD, multiple vessel Active Problems: Coronary arteriosclerosis Coronary artery disease due to calcified coronary lesion NEURO: #Acute on chronic pain - Scheduled APAP - Home robaxin TID - PRN oxycodone - Monitor pain #Mood disorder, chronic - Continue home Cymbalta #Anxiety: -PRN Atarax #ICU delirium - Seroquel 25 mg AM, 50 mg PM - Delirium precautions CV: #CAD, chronic #Cardiogenic shock, POA #Pulmonary hypertension, POA - s/p 07/24: CABG x3 (BURGESS to LAD, left radial to OM, SVG to PDA) and sternal plating - Post CPB EMILE on GROVE SUPERINTENDENT 5 w/ mildly improved LV function (from 40-50% pre CPB), mild RV dysfunction - 07/24 PM: Changed to Epi d/t low SVR and high pressor requirement 07/25: Epi increased d/t CI dropping to 1.9-2 and PA pressures increasing to 1/2 systemic. Inhaled Veletri also added w/ improvement in CI and reduction in PA pressures - 07/28: Veletri and Nitro gtt weaned off - Epi wean q12 hours if SvO2 >60/ALEX >2.2 - Continue Bumex gtt stopped today, Diamox x3 doses - Aspirin, statin, plavix daily - Imdur daily - Holding GDMT in the acute setting - EPW DDD @ 100 - CTS primary #HTN, chronic #HLD, chronic - Holding home carvedilol and Entresto - Continue home statin PULM: #Acute pulmonary insufficiency: - Currently on NC, 2-3L - Ongoing diuresis -Acapella, IS - Pulm hygiene, SpO2 goal >92%, PT/OT #JACQUELINE, chronic - Home nocturnal CPAP - JACQUELINE precautions GI: Diet: Cardiac Bowel regimen: senna, miralax #GERD: chronic -Continue home PPI ENDO: #DM2, chronic - A1C 7.5 - Home regimen: 90 units Lantus - Lantus 50 units + SSI - Monitor glucose RENAL: #VITALY- improving - BUN/Cr: 56/1.39 - Ongoing diuresis - Castro, strict I/O - Renal dose meds, avoid nephrotoxic agents - Monitor BMP and electrolytes #Hypernatremia: likely 2/2 diuresis -Na 150 -FWD 1.3L (for Na 145) -D5W started at 50ml/h -Monitor BMP #Hypokalemia: -Potassium repletion HEME: #ABLA: likely 2/2 surgery, labs #Thrombocytopenia: -H/H 7.6/24 -Platelets 72 -No s/s bleeding, no indication for transfusion, continue to monitor closely -Monitor CBC ID: WBC 3.8. No signs of infection. Intensive Care Unit Standards of Care: DVT prophylaxis: SCDs, SQH Vascular access: R radial dorcas (07/24), RIJ QLC (07/24), PIV x1 Goals of care: Full code Assessment and plan has been reviewed with attending Payton Fernando NP Critical Care Performed by: Payton Fernando NP Authorized by: Payton Fernando NP CRITICAL CARE: Team: 83 CTICU Shift: PM Level of Billing: Critical Care My time spent with this patient was 70 minutes: Critical Provider Statement: I have seen and examined the patient on this day of service. I have reviewed and confirmed the history, physical exam, laboratory and radiologic data as documented in thesigned ICU note. I have reviewed and discussed my treatment plan with the ICU team and other medical/systems consultant staff, making frequent assessments and decisions regarding this patient's complex medical care. Critical Care time was exclusive of time spent performing separately billed procedures, treating other patients, and teaching. This time was in addition to and separate from critical care provided by other practitioners in my group on this day of service. Critical Care was necessary to treat or prevent imminent or life-threatening deterioration of the following conditions: I spent time reviewing and interpreting data from bedside monitors, laboratory results, and imaging, I spent time documenting in the medical record and I spent time discussing the management of this critically ill patient with consultants and the medical staff Cosigned by Feng Sinclair MD at 07/30/2024 12:47 PM CDT * Shantal Elizabeth NP - 07/29/2024 8:52 AM CDTAssociated Order(s): Critical Care Post-Procedure Diagnose(s): Coronary artery disease, unspecified vessel or lesion type, unspecifiedwhether angina present, unspecified whether [facility] or transplanted heart CT ICU Daily Progress Team: 8200 Blue 2 AM Subjective Abiel Fink is a 74 y.o. male admitted on 07/24/2024 6:02 AM with chief complaint of CAD. PMH: HTN, HLD, CAD, moderate MR, 2nd degree AV block, asthma, JACQUELINE, pHTN, hepatic steatosis, GERD, hiatal hernia, DM Type II (Hgb A1c7.5), pituitary adenoma, obesity Abbreviated Hospital Course: 07/24: CABG x 3 (BURGESS to LAD, left radial to OM, SVG to PDA and sternal plating. Patient did have significant radial artery spasm, treated with papaverine and nitroglycerin. Prior to the case, patientwith known RV dysfunction. During EMILE, RV function improved with MAPs in the 80s, so levophed continued. OR totals: 1L crystalloid, 1 unit PRBC, 1 unit FFP, 1 unit PLT. A and V wires placed. MCT x 2 and bilateral chest tubes. Changed from GROVE SUPERINTENDENT to Epi. 07/25: Inhaled Veletri added for worsening RV dysfunction. 07/26: Unable to wean Veletri d/t increasing PA pressures 07/27: Veletri wean, epi at 0.05 07/28: Veletri weaned off Interval History: - Bumex decreased to 1 mg/hr--> off - Diamox 500 mg x3 - Epi weaned to 0.03, plan to wean q12 - [employer] c/s for difficulty swallowing - EP c/s Wednesday Objective Physical Exam: General: No Acute Distress, restless Neuro: A&Ox4, follows commands, LANDRUM, PERRL Cardiac: S1 and S2, Regular Rate and Rhythm, epicardial pacer wires DDD @ 100, MCT x2 to -20 suction Pulmonary: Lungs diminished to auscultation, respirations even/unlabored on Optiflow, PCT x2 to -20suction without air leak Abdominal: Soft/Nontender/Nondistended, normoactive bowel sounds Extremities: BLE edema, Pulses Present and Palpable Drains: Castro Wounds: See RN flowsheet Vital signs for last 24 hours: Pulse: [97-112] 103 Resp: [12-24] 12 SpO2: [99 %-100 %] 100 % Arterial Line BP: (115-160)/(51-71) 127/57 FiO2 (%): [40 %] 40 % Hemodynamics: PAP: (25-45)/(14-30) 36/25 PAP (Mean): [18 mmHg-34 mmHg] 29 mmHg CVP: [4 mmHg-29 mmHg] 10 mmHg Pulmonary Support: O2 Therapy: Supplemental oxygen O2 Del Method: Nasal cannula FiO2 (%): 40 % O2 Flow Rate (L/min): 4 L/min FiO2 (%): 40 % Intake/Output: Intake/Output Summary (Last 24 hours) at 07/29/2024 0852 Last data filed at 07/29/2024 0600 Gross per 24 hour Intake 1905.56 ml Output 4765 ml Net -2859.44 ml Lab/Radiology/Diagnostic Review: Laboratory review: Lab results in the last 12 hours: Recent Results (from the past 12 hour(s)) POCT glucose Collection Time: 07/29/24 12:30 AM Result Value Ref Range Glucose, POC 147 70 - 199 mg/dL CBC without differential Collection Time: 07/29/24 12:31 AM Result Value Ref Range WBC 4.2 3.8 - 9.9 K/cumm Hgb 7.7 (L) 13.0 - 17.5 g/dL Hct 24.0 (L) 38.9 - 50.3 % Plt 67 (L) 150 - 400 K/cumm MPV 10.3 9.1 - 12.3 fL RBC 2.89 (L) 4.30 - 5.80 M/cumm MCV 83.0 81.3 - 96.4 fL MCH 26.6 (L) 27.1 - 33.3 pg MCHC 32.1 (L) 32.3 - 35.7 g/dL RDW CV 17.1 (H) 11.1 - 14.9 % RDW SD 50.2 (H) 35.7 - 48.1 fL NRBC abs 0.07 (H) 0.00 - 0.01 K/cumm Basic metabolic panel Collection Time: 07/29/24 12:31 AM Result Value Ref Range Sodium 147 (H) 135 - 145 mmol/L Potassium, pl 3.8 3.3 - 4.9 mmol/L Chloride 105 97 - 110 mmol/L CO2 31 22 - 32 mmol/L Anion gap 11 2 - 15 mmol/L BUN 55 (H) 6 - 25 mg/dL Creatinine 1.23 0.80 - 1.30 mg/dL Glucose 147 70 - 199 mg/dL Calcium 8.9 8.5 - 10.3 mg/dL Magnesium Collection Time: 07/29/24 12:31 AM Result Value Ref Range Magnesium 1.9 1.4 - 2.5 mg/dL Phosphorus Collection Time: 07/29/24 12:31 AM Result Value Ref Range Phosphorus, pl 3.3 2.3 - 4.5 mg/dL Oxyhemoglobin, pulmonary artery Collection Time: 07/29/24 12:31 AM Result Value Ref Range Oxyhemoglobin, PA 81.3 % Potassium, whole blood Collection Time: 07/29/24 12:31 AM Result Value Ref Range Potassium, bld 3.9 3.3 - 4.9 mmol/L Blood gas, arterial Collection Time: 07/29/24 12:31 AM Result Value Ref Range pH, Art 7.47 (H) 7.35 - 7.45 PCO2, Arterial 41 35 - 45 mmHg PO2, Arterial 156 (H) 83 - 108 mmHg HCO3 Art (Calculated) 31 (H) 20 - 30 mmol/L BE, art 6 mmol/L O2 Sat Art (Measured) 100 (H) 90 - 95 % eGFR Collection Time: 07/29/24 12:31 AM Result Value Ref Range eGFR 62 >=60 mL/min/1.73 m2 Potassium, whole blood Collection Time: 07/29/24 3:59 AM Result Value Ref Range Potassium, bld 3.8 3.3 - 4.9 mmol/L Hemoglobin total, pulmonary artery Collection Time: 07/29/24 8:38 AM Result Value Ref Range Hemoglobin total, PA 8.2 (L) 13.0 - 17.5 g/dL Oxyhemoglobin, pulmonary artery Collection Time: 07/29/24 8:38 AM Result Value Ref Range Oxyhemoglobin, PA 56.7 % Blood gas, arterial Collection Time: 07/29/24 8:38 AM Result Value Ref Range pH, Art 7.48 (H) 7.35 - 7.45 PCO2, Arterial 44 35 - 45 mmHg PO2, Arterial 137 (H) 83 - 108 mmHg HCO3 Art (Calculated) 33 (H) 20 - 30 mmol/L BE, art 8 mmol/L O2 Sat Art (Measured) 100 (H) 90 - 95 % Assessment/Plan Principal Problem: CAD, multiple vessel Active Problems: Coronary arteriosclerosis Coronary artery disease due to calcified coronary lesion Plan of care: Neurologic: #Acute post-op pain - Scheduled acetaminophen - Home robaxin PRN - PRN oxycodone - Monitor for pain goal <4 #Mood disorder, chronic - Continue home Cymbalta #ICU delirium - Seroquel 25 mg AM, 50 mg PM - Delirium precautions Overall CAM-ICU: Negative (07/28/24 1900) Cardiovascular: #CAD, chronic #Cardiogenic shock, POA #Elevated lactate #Pulmonary hypertension, POA - s/p 07/24: CABG x3 (BURGESS to LAD, left radial to OM, SVG to PDA) and sternal plating - Post CPB EMILE on GROVE SUPERINTENDENT 5 w/ mildly improved LV function (from 40-50% pre CPB), mild RV dysfunction - 07/24 PM: Changed to Epi last d/t low SVR and high pressor requirement. 07/25: Epi increased to 0.09 d/t CI dropping to 1.9-2 and PA pressures increasing to 1/2 systemic. Inhaled Veletri also added w/ improvement in CI and reduction in PA pressures - 07/28: Veletri weaned off - Epi wean q24 hours - Continue Bumex gtt @ 2 mg/hr - Nitroglycerin d/c overnight - Aspirin, statin, plavix daily - Holding GDMT in the acute setting - EPW DDD @ 100 - MCT to -20 - CTS primary #HTN, chronic #HLD, chronic - Holding home carvedilol - Continue home statin Pulmonary: #Acute hypoxic respiratory insufficiency - Currently on NC - CXR, ABG as indicated - PCT to -20 suction, monitor output - Pulm hygiene, SpO2 goal >92%, IS/VAP ppx, PT/OT #JACQUELINE, chronic - Home nocturnal CPAP - JACQUELINE precautions GI: - Diet: Cardiac - Bowel regimen: Bisacodyl, miralax, senna #GERD, chronic - Continue home PPI Endocrine: #DM2, chronic - A1C 7.5 - Home regimen: 90 units Lantus - Lantus 50 units + SSI Renal: #VITALY- Resolving - BUN/Cr: 55/1.23 - Castro, strict I/O - Renal dose meds, avoid nephrotoxic agents, f/u BMP Hematology: #ABLA #Thrombocytopenia - H&H: 8.1/ 25.2 - PLT: 67 - No s/s active bleeding, will continue to monitor closely, f/u CBC - DVT PPx: SCDs, SQ ID: - WBC: 4.2 - Afebrile - s/p Becca-op Ancef - Continue to trend WBC, fever curve Intensive Care Unit Standards of Care: DVT prophylaxis: SCDs, SQH Vascular access: Right radial arterial line (07/24), RIJ QLC (07/24), PIV x1 Goals of care: Full code 8200 Blue 2 AM Assessment and plan has been reviewed with fellow and ICU attending, Dr. Sinclair. Shantal Elizabeth NP Critical Care Performed by: Shantal Elizabeth NP Authorized by: Shantal Elizabeth NP CRITICAL CARE: Team: 83 CTICU Shift: AM Level of Billing: Critical Care My time spent with this patient was 90 minutes: Critical Provider Statement: I have seen and examined the patient on this day of service. I have reviewed and confirmed the history, physical exam, laboratory and radiologic data as documented in thesigned ICU note. I have reviewed and discussed my treatment plan with the ICU team and other medical/systems consultant staff, making frequent assessments and decisions regarding this patient's complex medical care. Critical Care time was exclusive of time spent performing separately billed procedures, treating other patients, and teaching. This time was in addition to and separate from critical care provided by other practitioners in my group on this day of service. Critical Care was necessary to treat or prevent imminent or life-threatening deterioration of the following conditions: I spent time reviewing and interpreting data from bedside monitors, laboratory results, and imaging, I spent time discussing the management of this critically ill patient with consultants and the medical staff and I spent time documenting in the medical record Cosigned by Feng Sinclair MD at 07/30/2024 12:56 PM CDT * Peggy Gallardo PA - 07/28/2024 7:27 PM CDTAssociated Order(s): Critical Care Post-Procedure Diagnose(s): Coronary artery disease, unspecified vessel or lesion type, unspecifiedwhether angina present, unspecified whether [facility] or transplanted heart CT ICU Daily Progress Team: 8200 Blue 2 AM Subjective Abiel Fink is a 74 y.o. male admitted on 07/24/2024 6:02 AM with chief complaint of CAD. PMH: HTN, HLD, CAD, moderate MR, 2nd degree AV block, asthma, JACQUELINE, pHTN, hepatic steatosis, GERD, hiatal hernia, DM Type II (Hgb A1c7.5), pituitary adenoma, obesity Abbreviated Hospital Course: 07/24: CABG x 3 (BURGESS to LAD, left radial to OM, SVG to PDA and sternal plating. Patient did have significant radial artery spasm, treated with papaverine and nitroglycerin. Prior to the case, patientwith known RV dysfunction. During EMILE, RV function improved with MAPs in the 80s, so levophed continued. OR totals: 1L crystalloid, 1 unit PRBC, 1 unit FFP, 1 unit PLT. A and V wires placed. MCT x 2 and bilateral chest tubes. Changed from GROVE SUPERINTENDENT to Epi. 07/25: Inhaled Veletri added for worsening RV dysfunction. 07/26: Unable to wean Veletri d/t increasing PA pressures Interval History: - started q12 epi wean Objective Physical Exam: General: No Acute Distress, restless Neuro: A&Ox4, follows commands, LANDRUM, PERRL Cardiac: S1 and S2, Regular Rate and Rhythm, epicardial pacer wires DDD @ 100, MCT x2 to -20 suction Pulmonary: Lungs diminished to auscultation, respirations even/unlabored on Optiflow, PCT x2 to -20suction without air leak Abdominal: Soft/Nontender/Nondistended, normoactive bowel sounds Extremities: BLE edema, Pulses Present and Palpable Drains: Castro Wounds: See RN flowsheet Vital signs for last 24 hours: Pulse: [94-116] 109 Resp: [11-27] 18 SpO2: [94 %-100 %] 100 % Arterial Line BP: (113-160)/(45-78) 145/55 FiO2 (%): [40 %] 40 % Hemodynamics: PAP: (30-51)/(3-27) 31/18 PAP (Mean): [17 mmHg-39 mmHg] 24 mmHg CVP: [2 mmHg-24 mmHg] 8 mmHg Pulmonary Support: O2 Therapy: Supplemental oxygen O2 Del Method: Nasal cannula FiO2 (%): 40 % O2 Flow Rate (L/min): 4 L/min FiO2 (%): 40 % Intake/Output: Intake/Output Summary (Last 24 hours) at 07/28/2024 1927 Last data filed at 07/28/2024 1900 Gross per 24 hour Intake 2083.06 ml Output 4230 ml Net -2146.94 ml Lab/Radiology/Diagnostic Review: Laboratory review: Lab results in the last 12 hours: Assessment/Plan Principal Problem: CAD, multiple vessel Active Problems: Coronary arteriosclerosis Coronary artery disease due to calcified coronary lesion Plan of care: Neurologic: Acute post-op pain - Scheduled acetaminophen - Home robaxin PRN - PRN oxycodone - Monitor for pain goal <4 Mood disorder, chronic - Continue home Cymbalta Cardiovascular: CAD, chronic Cardiogenic shock, POA Elevated lactate Pulmonary hypertension, POA - s/p 07/24: CABG x3 (BURGESS to LAD, left radial to OM, SVG to PDA) and sternal plating - Post CPB EMILE on GROVE SUPERINTENDENT 5 w/ mildly improved LV function (from 40-50% pre CPB), mild RV dysfunction - 07/24 PM: Changed to Epi last d/t low SVR and high pressor requirement. 07/25: Epi increased to 0.09 d/t CI dropping to 1.9-2 and PA pressures increasing to 1/2 systemic. Inhaled Veletri also added w/ improvement in CI and reduction in PA pressures - 07/26: Unable to wean Veletri d/t increasing PA pressures - Epi at 0.05, wean q12 started tonight - Continue Bumex gtt @ 2 mg/hr - Aspirin, statin, plavix daily HTN, chronic HLD, chronic - Holding home carvedilol - Continue home statin Pulmonary: Acute hypoxic respiratory insufficiency - optiflow - Inhaled Veletri now off - Pulm hygiene, SpO2 goal >92%, IS/VAP ppx, PT/OT JACQUELINE, chronic - Continue home CPAP when off Veletri - JACQUELINE precautions GI: - Diet: Cardiac - Bowel regimen: Bisacodyl, miralax, senna GERD, chronic - Continue home PPI Endocrine: DM2, chronic - A1C 7.5 - Home regimen: 90 units Lantus - Insulin gtt per protocol Renal: VITALY- Resolving - Castro, strict I/O - Renal dose meds, avoid nephrotoxic agents, f/u BMP Hematology: ABLA - No s/s active bleeding, will continue to monitor closely, f/u CBC - DVT PPx: SCDs, SQH ID: Leukocytosis, likely reactive - s/p Becca-op Ancef - Continue to trend WBC, fever curve Assessment and plan has been reviewed with fellow and ICU attending HATTIE Dc Critical Care Performed by: Peggy Gallardo PA Authorized by: Peggy Gallardo PA CRITICAL CARE: Team: 83 CTICU Shift: PM Level of Billing: Critical Care My time spent with this patient was 75 minutes: Critical Provider Statement: I have seen and examined the patient on this day of service. I have reviewed and confirmed the history, physical exam, laboratory and radiologic data as documented in thesigned ICU note. I have reviewed and discussed my treatment plan with the ICU team and other medical/systems consultant staff, making frequent assessments and decisions regarding this patient's complex medical care. Critical Care time was exclusive of time spent performing separately billed procedures, treating other patients, and teaching. This time was in addition to and separate from critical care provided by other practitioners in my group on this day of service. Critical Care was necessary to treat or prevent imminent or life-threatening deterioration of the following conditions: I spent time reviewing and interpreting data from bedside monitors, laboratory results, and imaging, I spent time discussing the management of this critically ill patient with consultants and the medical staff and I spent time documenting in the medical record Cosigned by Feng Sinclair MD at 07/30/2024 12:54 PM CDT * Gregorio Shantal Magañabeth, JUSTYN - 07/28/2024 7:32 AM CDTAssociated Order(s): Critical Care Post-Procedure Diagnose(s): Coronary artery disease, unspecified vessel or lesion type, unspecifiedwhether angina present, unspecified whether [facility] or transplanted heart CT ICU Daily Progress Team: 8200 Blue 2 AM Subjective Abiel Fink is a 74 y.o. male admitted on 07/24/2024 6:02 AM with chief complaint of CAD. PMH: HTN, HLD, CAD, moderate MR, 2nd degree AV block, asthma, JACQUELINE, pHTN, hepatic steatosis, GERD, hiatal hernia, DM Type II (Hgb A1c7.5), pituitary adenoma, obesity Abbreviated Hospital Course: 07/24: CABG x 3 (BURGESS to LAD, left radial to OM, SVG to PDA and sternal plating. Patient did have significant radial artery spasm, treated with papaverine and nitroglycerin. Prior to the case, patientwith known RV dysfunction. During EMILE, RV function improved with MAPs in the 80s, so levophed continued. OR totals: 1L crystalloid, 1 unit PRBC, 1 unit FFP, 1 unit PLT. A and V wires placed. MCT x 2 and bilateral chest tubes. Changed from GROVE SUPERINTENDENT to Epi. 07/25: Inhaled Veletri added for worsening RV dysfunction. 07/26: Unable to wean Veletri d/t increasing PA pressures 07/27: Veletri wean, epi at 0.05 Interval History: 07/28 AM - Seroquel 25 mg AM, 50 mg PM - Veletri wean q4 - Continue bumex gtt, epinephrine 0.05 - Potassium repleted - d/c neno Knowles Objective Physical Exam: General: No Acute Distress, restless Neuro: A&Ox4, follows commands, LANDRUM, PERRL Cardiac: S1 and S2, Regular Rate and Rhythm, epicardial pacer wires DDD @ 100, MCT x2 to -20 suction Pulmonary: Lungs diminished to auscultation, respirations even/unlabored on Optiflow, PCT x2 to -20suction without air leak Abdominal: Soft/Nontender/Nondistended, normoactive bowel sounds Extremities: BLE edema, Pulses Present and Palpable Drains: Castro Wounds: See RN flowsheet Vital signs for last 24 hours: Temp: [36.2 ??C (97.2 ??F)] 36.2 ??C (97.2 ??F) Pulse: [94-116] 100 Resp: [11-27] 12 SpO2: [94 %-100 %] 99 % Arterial Line BP: (113-154)/(45-78) 135/58 FiO2 (%): [30 %-40 %] 40 % Hemodynamics: PAP: (27-84)/(3-59) 40/23 PAP (Mean): [17 mmHg-70 mmHg] 30 mmHg CVP: [1 mmHg-24 mmHg] 10 mmHg Pulmonary Support: O2 Therapy: Supplemental oxygen O2 Del Method: CPAP/Bi-PAP mask FiO2 (%): 40 % O2 Flow Rate (L/min): 40 L/min FiO2 (%): 40 % Intake/Output: Intake/Output Summary (Last 24 hours) at 07/28/2024 0732 Last data filed at 07/28/2024 0700 Gross per 24 hour Intake 1861.77 ml Output 4320 ml Net -2458.23 ml Lab/Radiology/Diagnostic Review: Laboratory review: Lab results in the last 12 hours: Recent Results (from the past 12 hour(s)) Potassium, whole blood Collection Time: 07/27/24 8:47 PM Result Value Ref Range Potassium, bld 3.7 3.3 - 4.9 mmol/L Blood gas, arterial Collection Time: 07/27/24 8:47 PM Result Value Ref Range pH, Art 7.46 (H) 7.35 - 7.45 PCO2, Arterial 38 35 - 45 mmHg PO2, Arterial 137 (H) 83 - 108 mmHg HCO3 Art (Calculated) 28 20 - 30 mmol/L BE, art 3 mmol/L O2 Sat Art (Measured) 100 (H) 90 - 95 % POCT glucose Collection Time: 07/27/24 8:47 PM Result Value Ref Range Glucose, POC 193 70 - 199 mg/dL POCT glucose Collection Time: 07/27/24 11:50 PM Result Value Ref Range Glucose, POC 186 70 - 199 mg/dL Potassium, whole blood Collection Time: 07/28/24 12:03 AM Result Value Ref Range Potassium, bld 3.8 3.3 - 4.9 mmol/L CBC without differential Collection Time: 07/28/24 12:03 AM Result Value Ref Range WBC 8.6 3.8 - 9.9 K/cumm Hgb 8.1 (L) 13.0 - 17.5 g/dL Hct 25.5 (L) 38.9 - 50.3 % Plt 75 (L) 150 - 400 K/cumm MPV 10.3 9.1 - 12.3 fL RBC 3.05 (L) 4.30 - 5.80 M/cumm MCV 83.6 81.3 - 96.4 fL MCH 26.6 (L) 27.1 - 33.3 pg MCHC 31.8 (L) 32.3 - 35.7 g/dL RDW CV 17.1 (H) 11.1 - 14.9 % RDW SD 50.9 (H) 35.7 - 48.1 fL NRBC abs 0.02 (H) 0.00 - 0.01 K/cumm Basic metabolic panel Collection Time: 07/28/24 12:03 AM Result Value Ref Range Sodium 145 135 - 145 mmol/L Potassium, pl 3.9 3.3 - 4.9 mmol/L Chloride 105 97 - 110 mmol/L CO2 30 22 - 32 mmol/L Anion gap 10 2 - 15 mmol/L BUN 47 (H) 6 - 25 mg/dL Creatinine 1.12 0.80 - 1.30 mg/dL Glucose 187 70 - 199 mg/dL Calcium 8.8 8.5 - 10.3 mg/dL Magnesium Collection Time: 07/28/24 12:03 AM Result Value Ref Range Magnesium 1.8 1.4 - 2.5 mg/dL Phosphorus Collection Time: 07/28/24 12:03 AM Result Value Ref Range Phosphorus, pl 3.4 2.3 - 4.5 mg/dL Oxyhemoglobin, pulmonary artery Collection Time: 07/28/24 12:03 AM Result Value Ref Range Oxyhemoglobin, PA 74.3 % Hemoglobin total, pulmonary artery Collection Time: 07/28/24 12:03 AM Result Value Ref Range Hemoglobin total, PA 8.4 (L) 13.0 - 17.5 g/dL Blood gas, arterial Collection Time: 07/28/24 12:03 AM Result Value Ref Range pH, Art 7.42 7.35 - 7.45 PCO2, Arterial 42 35 - 45 mmHg PO2, Arterial 83 83 - 108 mmHg HCO3 Art (Calculated) 28 20 - 30 mmol/L BE, art 3 mmol/L O2 Sat Art (Measured) 97 (H) 90 - 95 % Lactate Collection Time: 07/28/24 12:03 AM Result Value Ref Range Lactate 1.4 0.7 - 2.0 mmol/L eGFR Collection Time: 07/28/24 12:03 AM Result Value Ref Range eGFR 70 >=60 mL/min/1.73 m2 Potassium, whole blood Collection Time: 07/28/24 4:10 AM Result Value Ref Range Potassium, bld 3.8 3.3 - 4.9 mmol/L POCT glucose Collection Time: 07/28/24 4:10 AM Result Value Ref Range Glucose, POC 180 70 - 199 mg/dL Assessment/Plan Principal Problem: CAD, multiple vessel Active Problems: Coronary arteriosclerosis Coronary artery disease due to calcified coronary lesion Plan of care: Neurologic: #Acute post-op pain - Scheduled acetaminophen - Home robaxin PRN - PRN oxycodone - Monitor for pain goal <4 #Mood disorder, chronic - Continue home Cymbalta Overall CAM-ICU: Negative (07/27/241999) Cardiovascular: #CAD, chronic #Cardiogenic shock, POA #Elevated lactate #Pulmonary hypertension, POA - s/p 07/24: CABG x3 (BURGESS to LAD, left radial to OM, SVG to PDA) and sternal plating - Post CPB EMILE on GROVE SUPERINTENDENT 5 w/ mildly improved LV function (from 40-50% pre CPB), mild RV dysfunction - 07/24 PM: Changed to Epi last d/t low SVR and high pressor requirement. 07/25: Epi increased to 0.09 d/t CI dropping to 1.9-2 and PA pressures increasing to 1/2 systemic. Inhaled Veletri also added w/ improvement in CI and reduction in PA pressures - 07/26: Unable to wean Veletri d/t increasing PA pressures - Epi at 0.05, consider weaning q12-24 hours - Continue inhaled Veletri @ 8 mL/hr - Continue Bumex gtt @ 2 mg/hr - Nitroglycerin d/c overnight - Aspirin, statin, plavix daily - Holding GDMT in the acute setting - EPW DDD @ 100 - MCT to -20 - CTS primary #HTN, chronic #HLD, chronic - Holding home carvedilol - Continue home statin Pulmonary: #Acute hypoxic respiratory insufficiency - Currently on Optiflow 40 L, 30% for Veletri administratrion - Inhaled Veletri as above - CXR, ABG as indicated - PCT to -20 suction, monitor output - Pulm hygiene, SpO2 goal >92%, IS/VAP ppx, PT/OT #JACQUELINE, chronic - Continue home CPAP when off Veletri - JACQUELINE precautions GI: - Diet: Cardiac - Bowel regimen: Bisacodyl, miralax, senna #GERD, chronic - Continue home PPI Endocrine: #DM2, chronic - A1C 7.5 - Home regimen: 90 units Lantus - Insulin gtt per protocol Renal: #VITALY- Resolving - BUN/Cr: 38/ 1.08 - Castro, strict I/O - Renal dose meds, avoid nephrotoxic agents, f/u BMP Hematology: #ABLA - H&H: 8.1/ 25.2 - PLT: 62 - No s/s active bleeding, will continue to monitor closely, f/u CBC - DVT PPx: SCDemiliana, SQH ID: #Leukocytosis, likely reactive - WBC: 11.2 - Afebrile - s/p Becca-op Ancef - Continue to trend WBC, fever curve Intensive Care Unit Standards of Care: DVT prophylaxis: SCDs, SQH Vascular access: Right radial arterial line (07/24), RIJ QLC (07/24), PIV x1 Goals of care: Full code 8200 Blue 2 AM Assessment and plan has been reviewed with fellow and ICU attending, Dr. Sinclair. Shantal Elizabeth NP Critical Care Performed by: Shantal Elizabeth NP Authorized by: Shantal Elizabeth NP CRITICAL CARE: Team: 83 CTICU Shift: AM Level of Billing: Critical Care My time spent with this patient was 110 minutes: Critical Provider Statement: I have seen and examined the patient on this day of service. I have reviewed and confirmed the history, physical exam, laboratory and radiologic data as documented in thesigned ICU note. I have reviewed and discussed my treatment plan with the ICU team and other medical/systems consultant staff, making frequent assessments and decisions regarding this patient's complex medical care. Critical Care time was exclusive of time spent performing separately billed procedures, treating other patients, and teaching. This time was in addition to and separate from critical care provided by other practitioners in my group on this day of service. Critical Care was necessary to treat or prevent imminent or life-threatening deterioration of the following conditions: I spent time reviewing and interpreting data from bedside monitors, laboratory results, and imaging, I spent time discussing the management of this critically ill patient with consultants and the medical staff and I spent time documenting in the medical record Cosigned by Feng Sinclair MD at 07/30/2024 12:56 PM CDT * Peggy Gallardo PA - 07/27/2024 7:27 PM CDTAssociated Order(s): Critical Care Post-Procedure Diagnose(s): Coronary artery disease, unspecified vessel or lesion type, unspecifiedwhether angina present, unspecified whether [facility] or transplanted heart CT ICU Daily Progress Team: 8200 Blue 2 AM Subjective Abiel Fink is a 74 y.o. male admitted on 07/24/2024 6:02 AM with chief complaint of CAD. PMH: HTN, HLD, CAD, moderate MR, 2nd degree AV block, asthma, JACQUELINE, pHTN, hepatic steatosis, GERD, hiatal hernia, DM Type II (Hgb A1c7.5), pituitary adenoma, obesity Abbreviated Hospital Course: 07/24: CABG x 3 (BURGESS to LAD, left radial to OM, SVG to PDA and sternal plating. Patient did have significant radial artery spasm, treated with papaverine and nitroglycerin. Prior to the case, patientwith known RV dysfunction. During EMILE, RV function improved with MAPs in the 80s, so levophed continued. OR totals: 1L crystalloid, 1 unit PRBC, 1 unit FFP, 1 unit PLT. A and V wires placed. MCT x 2 and bilateral chest tubes. Changed from GROVE SUPERINTENDENT to Epi. 07/25: Inhaled Veletri added for worsening RV dysfunction. 07/26: Unable to wean Veletri d/t increasing PA pressures Interval History: - dilaudid 0.2 x 1 Objective Physical Exam: General: No Acute Distress, restless Neuro: A&Ox4, follows commands, LANDRUM, PERRL Cardiac: S1 and S2, Regular Rate and Rhythm, epicardial pacer wires DDD @ 100, MCT x2 to -20 suction Pulmonary: Lungs diminished to auscultation, respirations even/unlabored on Optiflow, PCT x2 to -20suction without air leak Abdominal: Soft/Nontender/Nondistended, normoactive bowel sounds Extremities: BLE edema, Pulses Present and Palpable Drains: Castro Wounds: See RN flowsheet Vital signs for last 24 hours: Temp: [36.2 ??C (97.2 ??F)] 36.2 ??C (97.2 ??F) Pulse: [92-116] 116 Resp: [8-23] 12 SpO2: [95 %-100 %] 100 % Arterial Line BP: (125-158)/(53-71) 143/66 FiO2 (%): [30 %-40 %] 40 % Hemodynamics: PAP: (27-84)/(7-59) 42/21 PAP (Mean): [17 mmHg-70 mmHg] 29 mmHg CVP: [1 mmHg-311 mmHg] 9 mmHg Pulmonary Support: O2 Therapy: Supplemental oxygen O2 Del Method: High humidity nasal cannula, i.e. Optiflow, Vapotherm FiO2 (%): 40 % O2 Flow Rate (L/min): 40 L/min FiO2 (%): 40 % Intake/Output: Intake/Output Summary (Last 24 hours) at 07/27/20241926 Last data filed at 07/27/2024 1900 Gross per 24 hour Intake 1484.51 ml Output 5330 ml Net -3845.49 ml Lab/Radiology/Diagnostic Review: Laboratory review: Lab results in the last 12 hours: Assessment/Plan Principal Problem: CAD, multiple vessel Active Problems: Coronary arteriosclerosis Coronary artery disease due to calcified coronary lesion Plan of care: Neurologic: Acute post-op pain - Scheduled acetaminophen - Home robaxin PRN - PRN oxycodone - Monitor for pain goal <4 Mood disorder, chronic - Continue home Cymbalta Cardiovascular: CAD, chronic Cardiogenic shock, POA Elevated lactate Pulmonary hypertension, POA - s/p 07/24: CABG x3 (BURGSES to LAD, left radial to OM, SVG to PDA) and sternal plating - Post CPB EMILE on GROVE SUPERINTENDENT 5 w/ mildly improved LV function (from 40-50% pre CPB), mild RV dysfunction - 07/24 PM: Changed to Epi last d/t low SVR and high pressor requirement. 07/25: Epi increased to 0.09 d/t CI dropping to 1.9-2 and PA pressures increasing to 1/2 systemic. Inhaled Veletri also added w/ improvement in CI and reduction in PA pressures - 07/26: Unable to wean Veletri d/t increasing PA pressures - Epi at 0.05 - Continue inhaled Veletri @ 8 mL/hr - Continue Bumex gtt @ 2 mg/hr - Aspirin, statin, plavix daily HTN, chronic HLD, chronic - Holding home carvedilol - Continue home statin Pulmonary: Acute hypoxic respiratory insufficiency - optiflow - Inhaled Veletri as above - Pulm hygiene, SpO2 goal >92%, IS/VAP ppx, PT/OT JACQUELINE, chronic - Continue home CPAP when off Veletri - JACQUELINE precautions GI: - Diet: Cardiac - Bowel regimen: Bisacodyl, miralax, senna GERD, chronic - Continue home PPI Endocrine: DM2, chronic - A1C 7.5 - Home regimen: 90 units Lantus - Insulin gtt per protocol Renal: VITALY- Resolving - Castro, strict I/O - Renal dose meds, avoid nephrotoxic agents, f/u BMP Hematology: ABLA - No s/s active bleeding, will continue to monitor closely, f/u CBC - DVT PPx: SCDs, SQH ID: Leukocytosis, likely reactive - s/p Becca-op Ancef - Continue to trend WBC, fever curve Assessment and plan has been reviewed with fellow and ICU attending HATTIE Dc Critical Care Performed by: Peggy Gallardo PA Authorized by: Peggy Gallardo PA CRITICAL CARE: Team: 83 CTICU Shift: PM Level of Billing: Critical Care My time spent with this patient was 60 minutes: Critical Provider Statement: I have seen and examined the patient on this day of service. I have reviewed and confirmed the history, physical exam, laboratory and radiologic data as documented in thesigned ICU note. I have reviewed and discussed my treatment plan with the ICU team and other medical/systems consultant staff, making frequent assessments and decisions regarding this patient's complex medical care. Critical Care time was exclusive of time spent performing separately billed procedures, treating other patients, and teaching. This time was in addition to and separate from critical care provided by other practitioners in my group on this day of service. Critical Care was necessary to treat or prevent imminent or life-threatening deterioration of the following conditions: I spent time reviewing and interpreting data from bedside monitors, laboratory results, and imaging, I spent time discussing the management of this critically ill patient with consultants and the medical staff and I spent time documenting in the medical record Cosigned by Feng Sinclair MD at 07/30/2024 12:54 PM CDT * Briseida Landrum OT - 07/27/2024 8:08 AM CDT Occupational Therapy Evaluation Note NOTE: This is a summary note of the barreto components of the evaluation session. For full details, review chart for all flowsheets documented on by this occupational therapy clinician on this date. Vital signs are documented in vital signs flowsheet. For questions, please review the treatment team and contact the occupational therapist currently assigned to this patient. If an occupational therapist is not assigned to this patient, please call [phone]. 07/27/24 0808 General Chart Reviewed Yes Session Type Evaluation OT Received On 07/27/24 Safe Environment Arm band checked;Patient found in supine;Gait belt not utilized, see comment (epicardial wires, chest tubes) Subjective Agreeable to Therapy Family/Caregiver Present No Occupational Therapy-Patient Goal Pt agrees to OT POC Precautions Precautions Fall risk;Cardiac sternal Precaution Comments Verbally reviewed sternal precautions prior to all mobility Home Living Additional Comments Unable to obtain 2/2 lethargy Prior Function Prior Function Comments Unable to obtain 2/2 lethargy ADL ADLS (WDL) X Grooming Grooming: Where assessed Chair Grooming: Level of assistance Dependent (max task/total balance) Grooming: Assistance with Manipulation of containers;Appropriate use of ADL items;Reaching all areas of head/face;Balance;Safety;Other (Comment);Attending to task;Sequencing (verbal cues to maintain level of alertness) LE Dressing LE Dressing: Where assessed Sitting;Chair LE Dressing: Level of assistance Dependent LE Dressing: Assistance with Don/doff R sock;Don/doff L sock;Thread RLE into pants;Thread LLE into pants;Thread RLE into underwear;Thread LLE into underwear;Pull up over hips;Fasteners;Safety;Balance Toileting Toileting: Where assessed Chair Toileting: Level of assistance Dependent Toilet Transfers Toilet Transfer From Bed Toilet Transfer Type To Toilet Transfer to (chair, sim) Toilet Transfer Technique Stand and Step Toilet Transfer: Equipment Hand hold Toilet Transfers Maximal assistance (x2) Toilet Transfers Comments force production, balance, verbal cues for sequencing to advance LEs 2/2 neuropathy, bilateral knee blocking Pain Assessment Pain Assessment 0-10 Pain Score 4 Pain Location Incision Pain Interventions RN Notified Activity Tolerance Activity Tolerance Comments Pretty: hard Cognition Arousal/Alertness Lethargic Attention Span Difficulty attending to directions Memory Decreased short term memory Current communication Appears Intact Orientation Oriented to person;Oriented to time;Oriented to situation Following Commands Follows one step commands with increased time Safety Judgment Decreased awareness of need for safety Awareness of Errors Decreased awareness of errors Compliance/Behavior Easy to engage Cognitive Tests Cognitive Tests No (unable to obtain 2/2 lethargy) Sensation Numbness/Tingling Yes (baseline BLE neuropathy) Balance Balance Yes Dynamic Sitting Balance Dynamic Sitting-Balance Support Feet supported;No upper extremity supported Dynamic Sitting-Balance Lateral lean;Forward lean;Reaching for objects;Reaching across midline Dynamic Sitting-Sitting Surface Bed;Chair Dynamic Sitting-Level of Assistance Moderate assistance Dynamic Sitting-Comments to ensure safety and balance Static Standing Balance Static Standing-Balance Support 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) Static Standing-Standing Surface Floor Static Standing-Level of Assistance Moderate assistance (x2) Static Standing-Comment/# of Minutes to ensure safety and balance, bilateral knee buckling progressing patient to max x 2 Bed Mobility Bed Mobility Yes Bed Mobility 1 Bed Mobility From 1 Supine Bed Mobility Type 1 To Bed Mobility to 1 Edge of bed Level of Assistance 1 Maximum Assist Bed Mobility Comments 1 trunk elevation, LE navigation Transfers Transfer Yes Transfer 1 Transfer From 1 Sit Transfer Type 1 To and from Transfer to 1 Stand Technique 1 Sit to stand;Stand to sit Transfer Device 1 Hand held assist Transfer Level of Assistance 1 Moderate Assist (x2) Trials/Comments 1 force production, balance, sequence, draw sheet for bilateral hip extension, kneeblocking Transfers 2 Trials/Comments 2 Functional mobility: NT 2/2 safety concerns RUE Assessment RUE Assessment X RUE Comments limited AROM noted, PROM WFL, decreased measurer machine strength LUE Assessment LUE Assessment X LUE Comments limited AROM noted, PROM WFL, decreased measurer machine strength Daily Activity - 6 Clicks Putting on and taking off regular lower body clothing 1 Bathing 1 Toileting 1 Putting on and taking off upper body clothing 1 Personal Grooming 1 Eating Meals 1 Total Score (range 6-24) 6 Score Interpretation 17.07 Safe Environment End of Therapy Session Safe Environment End of Therapy Session Patient left in chair;RN notified;Call light within reach;Overbed table within reach (nata belt donned) Assessment Problem List Decreased endurance;Decreased balance;Decreased functional mobility;Decreased ADL independence;Decreased IADL independence;Decreased cognition;Decreased safe judgment during ADL;Decreased upper extremity strength;Decreased upper extremity range of motion;Decreased frequency/variety of movement;Decreased trunk control for functional activities;Decreased sensation Barriers to Discharge Current Mobility Status;Current ADL Status;Cognition;Decreased safety awareness Plan Plan Plan of care initiated;If this is the last note, consider this the discharge summary Recommendation/Plan OT Recommendation Inpatient Rehab Facility Patient at high risk for Falls;Readmission;Injury due to decreased ability to care for self;Injury due to reduced functional status;Injury due to impaired cognition;Injury due to balance deficits;Injury at home as patient has not returned to prior level of function;Developing impaired skin integrity;Cognitive decline due to decreased social participation;Mismanagement of medications;Prolonged dependence for self care tasks;Developing secondary complications: poor health management Recommend Inpatient Rehab/Acute Rehab due to Ability to actively participate in intensive therapy 3hours/day, 5 days/week or 900 minutes per week;Highly motivated to participate in therapy;Not at baseline due to impaired ability to complete ADLs;Impaired ability to complete functional mobility;Likely to return to the community at discharge with support system in place;Requires greater than 25% physical assistance with most mobility tasks;Requires greater than 25% physical assistance with most ADL tasks;Requires multiple therapy disciplines to address functional deficits;Patient and caregiverrequire specialized skilled training due to new level of function/diagnosis OT Frequency during current admission 3-5x/wk Treatment/Interventions during current admission ADL/IADL retraining;Balance Training;Bed mobility;Compensatory technique education;Endurance training;Functional activity;Functional mobility training;Functional transfer training;Therapeutic activity;Therapeutic exercise;Transfer training OT - Next Appointment 07/31/24 OT - OK to Discharge No OT Evaluation Complete Yes Time Calculation Start Time 08 Stop Time 0837 Time Calculation (min) 29 min Multi-Disciplinary Problems (from Occupational Therapy) Active Problems Problem: Dressings Lower Extremities Start Date: 07/27/24 Goal Start Date Expected End Date End Date STG - Patient to complete lower body dressing with supervision. 07/27/24 08/10/24 -- Problem: Grooming Start Date: 07/27/24 Goal Start Date Expected End Date End Date STG - Patient will complete grooming standing at the sink with supervision. 07/27/24 08/10/24 -- Problem: Toileting Start Date: 07/27/24 Goal Start Date Expected End Date End Date STG - Patient will complete toileting tasks with supervision. 07/27/24 08/10/24 -- Problem: Transfers Start Date: 07/27/24 Goal Start Date Expected End Date End Date STG - Patient will perform toilet transfer to standard toilet with supervision. 07/27/24 08/10/24 -- Problem: OT Misc Start Date: 07/27/24 Goal Start Date Expected End Date End Date OT LTG - Patient will demonstrate modified independence/independence with ADL task completion. 07/27/24 08/26/24 -- * Shantal Elizabeth NP - 07/27/2024 7:22 AM CDTAssociated Order(s): Critical Care Post-Procedure Diagnose(s): Coronary artery disease, unspecified vessel or lesion type, unspecifiedwhether angina present, unspecified whether [facility] or transplanted heart CT ICU Daily Progress Team: 8200 Blue 2 AM Subjective Abiel Fink is a 74 y.o. male admitted on 07/24/2024 6:02 AM with chief complaint of CAD. PMH: HTN, HLD, CAD, moderate MR, 2nd degree AV block, asthma, JACQUELINE, pHTN, hepatic steatosis, GERD, hiatal hernia, DM Type II (Hgb A1c7.5), pituitary adenoma, obesity Abbreviated Hospital Course: 07/24: CABG x 3 (BURGESS to LAD, left radial to OM, SVG to PDA and sternal plating. Patient did have significant radial artery spasm, treated with papaverine and nitroglycerin. Prior to the case, patientwith known RV dysfunction. During EMILE, RV function improved with MAPs in the 80s, so levophed continued. OR totals: 1L crystalloid, 1 unit PRBC, 1 unit FFP, 1 unit PLT. A and V wires placed. MCT x 2 and bilateral chest tubes. Changed from GROVE SUPERINTENDENT to Epi. 07/25: Inhaled Veletri added for worsening RV dysfunction. 07/26: Unable to wean Veletri d/t increasing PA pressures Interval History: - PRN atarax ordered for anxiety - Imdur 15 mg for radial artery spasm - Epi @ 0.05, no wean - Bumex gtt continued - Veletri continued at 8 mL/hr - Insulin gtt d/c--> Lantus 50 units daily + HDSSI Objective Physical Exam: General: No Acute Distress, restless Neuro: A&Ox4, follows commands, LANDRUM, PERRL Cardiac: S1 and S2, Regular Rate and Rhythm, epicardial pacer wires DDD @ 100, MCT x2 to -20 suction Pulmonary: Lungs diminished to auscultation, respirations even/unlabored on Optiflow, PCT x2 to -20suction without air leak Abdominal: Soft/Nontender/Nondistended, normoactive bowel sounds Extremities: BLE edema, Pulses Present and Palpable Drains: Castro Wounds: See RN flowsheet Vital signs for last 24 hours: Temp: [36.3 ??C (97.3 ??F)-37.4 ??C (99.3 ??F)] 36.3 ??C (97.3 ??F) Pulse: [92-115] 107 Resp: [8-20] 13 SpO2: [94 %-100 %] 100 % Arterial Line BP: (115-171)/(53-106) 129/57 FiO2 (%): [30 %-40 %] 30 % Hemodynamics: PAP: (49-87)/(28-60) 71/46 PAP (Mean): [39 mmHg-72 mmHg] 56 mmHg CVP: [7 mmHg-311 mmHg] 10 mmHg Pulmonary Support: O2 Therapy: Supplemental oxygen O2 Del Method: High humidity, i.e. Optiflow, Vapotherm (trach adapter) FiO2 (%): 30 % O2 Flow Rate (L/min): 40 L/min FiO2 (%): 30 % Intake/Output: Intake/Output Summary (Last 24 hours) at 07/27/2024 0723 Last data filed at 07/27/2024 0700 Gross per 24 hour Intake 1480.22 ml Output 4365 ml Net -2884.78 ml Lab/Radiology/Diagnostic Review: Laboratory review: Lab results in the last 12 hours: Recent Results (from the past 12 hour(s)) POCT glucose Collection Time: 07/27/24 2:30 AM Result Value Ref Range Glucose, POC 125 70 - 199 mg/dL POCT glucose Collection Time: 07/27/24 3:55 AM Result Value Ref Range Glucose, POC 115 70 - 199 mg/dL Potassium, whole blood Collection Time: 07/27/24 3:58 AM Result Value Ref Range Potassium, bld 4.0 3.3 - 4.9 mmol/L Oxyhemoglobin, central venous Collection Time: 07/27/24 3:58 AM Result Value Ref Range Oxyhemoglobin, CV 60.5 % Blood gas, arterial Collection Time: 07/27/24 3:58 AM Result Value Ref Range pH, Art 7.40 7.35 - 7.45 PCO2, Arterial 39 35 - 45 mmHg PO2, Arterial 103 83 - 108 mmHg HCO3 Art (Calculated) 25 20 - 30 mmol/L BE, art 0 mmol/L O2 Sat Art (Measured) 99 (H) 90 - 95 % Hemoglobin total, central venous Collection Time: 07/27/24 3:58 AM Result Value Ref Range Hemoglobin total, CV 8.7 (L) 13.0 - 17.5 g/dL POCT glucose Collection Time: 07/27/24 6:13 AM Result Value Ref Range Glucose, POC 93 70 - 199 mg/dL POCT glucose Collection Time: 07/27/24 6:57 AM Result Value Ref Range Glucose, POC 101 70 - 199 mg/dL Potassium, whole blood Collection Time: 07/27/24 7:41 AM Result Value Ref Range Potassium, bld 4.2 3.3 - 4.9 mmol/L POCT glucose Collection Time: 07/27/24 7:41 AM Result Value Ref Range Glucose, POC 157 70 - 199 mg/dL POCT glucose Collection Time: 07/27/24 9:18 AM Result Value Ref Range Glucose, POC 155 70 - 199 mg/dL Hemoglobin total, central venous Collection Time: 07/27/24 9:28 AM Result Value Ref Range Hemoglobin total, CV 8.9 (L) 13.0 - 17.5 g/dL Blood gas, arterial Collection Time: 07/27/24 9:28 AM Result Value Ref Range pH, Art 7.41 7.35 - 7.45 PCO2, Arterial 40 35 - 45 mmHg PO2, Arterial 143 (H) 83 - 108 mmHg HCO3 Art (Calculated) 26 20 - 30 mmol/L BE, art 1 mmol/L O2 Sat Art (Measured) 100 (H) 90 - 95 % Oxyhemoglobin, central venous Collection Time: 07/27/24 9:28 AM Result Value Ref Range Oxyhemoglobin, CV 63.4 % Lactate Collection Time: 07/27/24 9:28 AM Result Value Ref Range Lactate 1.7 0.7 - 2.0 mmol/L Blood gas, arterial Collection Time: 07/27/24 12:00 PM Result Value Ref Range pH, Art 7.46 (H) 7.35 - 7.45 PCO2, Arterial 35 35 - 45 mmHg PO2, Arterial 146 (H) 83 - 108 mmHg HCO3 Art (Calculated) 26 20 - 30 mmol/L BE, art 1 mmol/L O2 Sat Art (Measured) 100 (H) 90 - 95 % Potassium, whole blood Collection Time: 07/27/24 12:00 PM Result Value Ref Range Potassium, bld 4.2 3.3 - 4.9 mmol/L Assessment/Plan Principal Problem: CAD, multiple vessel Active Problems: Coronary arteriosclerosis Coronary artery disease due to calcified coronary lesion Plan of care: Neurologic: #Acute post-op pain - Scheduled acetaminophen - Home robaxin PRN - PRN oxycodone - Monitor for pain goal <4 #Mood disorder, chronic - Continue home Cymbalta Overall CAM-ICU: Negative (07/26/241999) Cardiovascular: #CAD, chronic #Cardiogenic shock, POA #Elevated lactate #Pulmonary hypertension, POA - s/p 07/24: CABG x3 (BURGESS to LAD, left radial to OM, SVG to PDA) and sternal plating - Post CPB EMILE on GROVE SUPERINTENDENT 5 w/ mildly improved LV function (from 40-50% pre CPB), mild RV dysfunction - 07/24 PM: Changed to Epi last d/t low SVR and high pressor requirement. 07/25: Epi increased to 0.09 d/t CI dropping to 1.9-2 and PA pressures increasing to 1/2 systemic. Inhaled Veletri also added w/ improvement in CI and reduction in PA pressures - 07/26: Unable to wean Veletri d/t increasing PA pressures - Epi at 0.05, consider weaning q12-24 hours - Continue inhaled Veletri @ 8 mL/hr - Continue Bumex gtt @ 2 mg/hr - Nitroglycerin d/c overnight - Aspirin, statin, plavix daily - Holding GDMT in the acute setting - EPW DDD @ 100 - MCT to -20 - CTS primary #HTN, chronic #HLD, chronic - Holding home carvedilol - Continue home statin Pulmonary: #Acute hypoxic respiratory insufficiency - Currently on Optiflow 40 L, 30% for Veletri administratrion - Inhaled Veletri as above - CXR, ABG as indicated - PCT to -20 suction, monitor output - Pulm hygiene, SpO2 goal >92%, IS/VAP ppx, PT/OT #JACQUELINE, chronic - Continue home CPAP when off Veletri - JACQUELINE precautions GI: - Diet: Cardiac - Bowel regimen: Bisacodyl, miralax, senna #GERD, chronic - Continue home PPI Endocrine: #DM2, chronic - A1C 7.5 - Home regimen: 90 units Lantus - Insulin gtt per protocol Renal: #VITALY- Resolving - BUN/Cr: 38/ 1.08 - Castro, strict I/O - Renal dose meds, avoid nephrotoxic agents, f/u BMP Hematology: #ABLA - H&H: 8.1/ 25.2 - PLT: 62 - No s/s active bleeding, will continue to monitor closely, f/u CBC - DVT PPx: GHANSHYAM Piña ID: #Leukocytosis, likely reactive - WBC: 11.2 - Afebrile - s/p Becca-op Ancef - Continue to trend WBC, fever curve Intensive Care Unit Standards of Care: DVT prophylaxis: SCDs, SQRyanne Vascular access: Right radial arterial line (07/24), RIJ QLC (07/24), PIV x1 Goals of care: Full code 8200 Blue 2 AM Assessment and plan has been reviewed with fellow and ICU attending, Dr. Sinclair. Shantal Elizabeth NP Critical Care Performed by: Shantal Elizabeth NP Authorized by: Shantal Elizabeth NP CRITICAL CARE: Team: 83 CTICU Shift: AM Level of Billing: Critical Care My time spent with this patient was 120 minutes: Critical Provider Statement: I have seen and examined the patient on this day of service. I have reviewed and confirmed the history, physical exam, laboratory and radiologic data as documented in thesigned ICU note. I have reviewed and discussed my treatment plan with the ICU team and other medical/systems consultant staff, making frequent assessments and decisions regarding this patient's complex medical care. Critical Care time was exclusive of time spent performing separately billed procedures, treating other patients, and teaching. This time was in addition to and separate from critical care provided by other practitioners in my group on this day of service. Critical Care was necessary to treat or prevent imminent or life-threatening deterioration of the following conditions: I spent time reviewing and interpreting data from bedside monitors, laboratory results, and imaging, I spent time discussing the management of this critically ill patient with consultants and the medical staff and I spent time documenting in the medical record Cosigned by Feng Sinclair MD at 07/30/2024 12:56 PM CDT * Mala Pineda NP - 07/26/2024 6:53 PM CDTAssociated Order(s): Critical Care Post-Procedure Diagnose(s): Coronary artery disease, unspecified vessel or lesion type, unspecifiedwhether angina present, unspecified whether [facility] or transplanted heart ICU Daily Progress Shifts: NPP Shift Options: 82-2 PM Subjective Patient is a 74 y.o. male admitted to the hospital on 07/24/2024 6:02 AM with/following: CAD Interval History: - trial veletri weaned to 4 ml/hr -- patient with increased PA pressures up to 60/40. Will increaseback to 8 ml/hr. - wean epi q8h for CI >2.2 - bumex 1 mg x2 Hospital Course: 07/24: CABG x 3 (BURGESS to LAD, left radial to OM, SVG to PDA and sternal plating. Overnight changed to Epi from GROVE SUPERINTENDENT. 07/25: Inhaled Veletri added for worsening RV dysfunction. Objective Medications: Scheduled Meds:acetaminophen, 1,000 mg, oral, Q6H HILDA aspirin, 81 mg, oral, Daily atorvastatin, 40 mg, oral, Daily [START ON 07/27/2024] bisacodyL, 10 mg, rectal, Once chlorhexidine, 15 mL, swish & spit, TID clopidogreL, 75 mg, oral, Daily DULoxetine DR, 60 mg, oral, Nightly heparin, 5,000 Units, subcutaneous, Q8H HILDA pantoprazole DR, 40 mg, oral, Daily polyethylene glycol, 17 g, oral, Daily senna, 1 tablet, oral, BID Continuous Infusions:bumetanide, 2 mg/hr EPINEPHrine, 0.05 mcg/kg/min, Last Rate: 0.05 mcg/kg/min (07/26/24 1646) epoprostenol, 160 mcg/hr, Last Rate: 160 mcg/hr (07/26/24 1711) insulin regular, 0-30 Units/hr, Last Rate: 6 Units/hr (07/26/24 1407) Lactated Ringer's, 10 mL/hr, Last Rate: 10 mL/hr (07/26/24 0700) nitroglycerin, 10 mcg/min, Last Rate: 10 mcg/min (07/26/24 1400) sodium chloride 0.9%, 3-12 mL/hr, Last Rate: 9 mL/hr (07/26/24 0700) Vitals: Temp: [37.3 ??C (99.1 ??F)-37.4 ??C (99.3 ??F)] 37.3 ??C (99.1 ??F) Pulse: [95-102] 100 Resp: [10-24] 12 SpO2: [93 %-100 %] 98 % Arterial Line BP: (115-171)/(54-106) 123/58 FiO2 (%): [30 %-50 %] 30 % Fluid balance: I/O this shift: In: 635.7 [P.O.:360; I.V.:275.7] Out: 1495 [Urine:1015; Drains:70; Chest Tube:410] Intake/Output Summary (Last 24 hours) at 07/26/2024 1853 Last data filed at 07/26/2024 1800 Gross per 24 hour Intake 1320.42 ml Output 2140 ml Net -819.58 ml Ventilator settings: FiO2 (%): 30 % (07/26 161) Hemodynamic parameters: PAP: 60/38 (07/26 1700) CVP: 15 mmHg (07/26 1700) PCWP: -- CO: -- CI: -- SVO2: -- Pacemaker Overdrive Pacing: -- Cardiac Rhythm: A-V Sequential paced (07/26 1600) Pacer Mode: -- Physical exam: Neuro: awake, oriented x4, CAM (-), moves all extremities and follows simple commands Cardiac: epicardial wires set to DDD 100, RRR, S1 S2, periphery warm, pulses palpable distally, 1+ BLE edema Pulm: on OptiFlow 30% FIO2, lungs diminished bilaterally, PCT x2 without air leak GI: abdomen obese, soft, nontender, hypoactive bowel sounds : castro with clear yellow urine Skin: [place], warm, dry, midline sternal incision covered w/ OR dressing intact, MCT x2. R thigh SVG site covered w/ gauze and MELONIE wrap, intact. Bulb CINTIA to self- suction. L forearm incision covered w/ dressing, intact. Bulb CINTIA to self suction. Laboratory data: Recent Labs Lab Units 07/26/24 0033 07/25/24 0802 07/25/24 0438 07/25/24 0223 07/24/24 1621 WBC K/cumm 14.9* -- 24.7* -- 6.1 HEMOGLOBIN, POC g/dL -- 9.3* -- < > -- HEMOGLOBIN g/dL 8.2* -- 9.0* -- 9.1* HEMATOCRIT % 25.1* -- 28.6* -- 27.8* HEMATOCRIT POC % -- 28.0* -- < > -- PLATELETS K/cumm 77* -- 150 -- 79* < > = values in this interval not displayed. Recent Labs Lab Units 07/26/24 0033 07/25/24 0438 07/24/24 1621 SODIUM mmol/L 140 142 141 POTASSIUM PLASMA mmol/L 4.8 5.4* 4.9 CHLORIDE mmol/L 107 107 107 CO2 mmol/L 22 20* 24 BUN SERUM mg/dL 27* 18 12 CREATININE mg/dL 1.22 1.12 0.79* CALCIUM mg/dL 8.5 8.7 9.1 Recent Labs Lab Units 07/24/24 1621 PROTIME (PT) sec 15.7* INR 1.44* APTT sec 34 Recent Labs Lab Units 07/26/24 0414 07/26/24 0033 07/25/242006 PH ART 7.37 7.34* 7.32* PCO2 ART mmHg 36 41 41 PO2 ART mmHg 151* 139* 73* BASE EXC ART mmol/L -4 -3 -5 Diagnostic review (radiology / micro / other): CXR personally reviewed. Impression and Plan: Active problems/Plans: Acute pain Due to cardiac surgery. States that pain is controlled at this time. Pt very drowsy w/ Dilaudid. - APAP scheduled - oxycodone 5 mg Q4H PRN 1st line pain - home robaxin PRN Mood disorder - continue home Cymbalta CAD HFrEF Cardiogenic shock RV dysfunction Elevated lactate Pulmonary hypertension 07/24: CABG x3 (BURGESS to LAD, left radial to OM, SVG to PDA) and sternal plating. Post CPB EMILE on GROVE SUPERINTENDENT 5 w/ mildly improved LV function (from 40-50% pre CPB), mild RV dysfunction. 07/24 overnight: Changed to Epi last d/t low SVR and high pressor requirement. 07/25: Epi increased to 0.09 d/t CI dropping to 1.9-2 and PA pressures increasing to 1/2 systemic. Inhaled Veletri also added w/ improvement in CI and reduction in PA pressures. Currently supported w/ Epi 0.05 and inhaled Veletri 160 mcg/hr. Inhaled Veletri wean attempted today, but PA pressures increased, so inhaled Veletri increased back to 160 mcg/hr. Received Bumex 1 mg x2 doses today without robust response. CI 2.8. SBP 120s-130s. PAS ~1/2 systemic. CVP 14-20. - continue Epi 0.05 overnight - continue inhaled Veletri 160 mcg/hr for RV support - d/c NTG infusion - keep MAP >80 in setting of RV dysfunction - start Bumex infusion at 2 mg/hr - ASA/statin daily - Plavix daily - hold GDMT in acute setting - EPW to DDD 100 - MCT to -20 mmHg suction HTN - chronic HLD - chronic - hold home Coreg - statin daily Atelectasis Asthma JACQUELINE Extubated post op. Currently on OptiFlow for inhaled Veletri administration. CXR w/ atelectasis. - wean supplemental O2 for SPO2 >92% - encourage pulmonary hygiene w/ IS, coughing/deep breathing - continue home nocturnal CPAP once weaned from Veletri - PCT to -20 mmHg suction - CXR daily GERD - continue home PPI Type 2 diabetes mellitus Hgb A1C 7.5. Takes Lantus and insulin w/ meals, and metformin at home. Arrived from OR on insulin infusion. - continue insulin infusion per ICU protocol Acute kidney injury Hyperkalemia - improving Bsl Cr ~0.8. Cr up to 1.22. UOP adequate. K improving. - avoid nephrotoxins, renally dose medications - optimize SBP for renal perfusion - trend whole blood K Q4 while on Bumex infusion - BMP daily Acute blood loss anemia Due to cardiac surgery. Received 1 PRBC, 1 FFP, 1 platelet intra op. Hgb stable at 8.2. No s/s active bleeding, chest tube output stable. - consider transfusion for Hgb < 7 or for hemodynamic instability - CBC daily Post op care to include: Aspirin/statin SCD's and subQ heparin for DVT ppx Heart healthy, consistent carb diet Bowel regimen GI prophylaxis: Home PPI Insulin per ICU protocol PT/OT Updates: Mala Pineda NP Critical Care Performed by: Mala Pineda NP Authorized by: Mala Pineda NP CRITICAL CARE: Team: 83 CTICU Shift: PM Level of Billing: Critical Care My time spent with this patient was 75 minutes: Critical Provider Statement: I have seen and examined the patient on this day of service. I have reviewed and confirmed the history, physical exam, laboratory and radiologic data as documented in thesigned ICU note. I have reviewed and discussed my treatment plan with the ICU team and other medical/systems consultant staff, making frequent assessments and decisions regarding this patient's complex medical care. Critical Care time was exclusive of time spent performing separately billed procedures, treating other patients, and teaching. This time was in addition to and separate from critical care provided by other practitioners in my group on this day of service. Critical Care was necessary to treat or prevent imminent or life-threatening deterioration of the following conditions: I spent time reviewing and interpreting data from bedside monitors, laboratory results, and imaging, I spent time discussing the management of this critically ill patient with consultants and the medical staff and I spent time documenting in the medical record Cosigned by Feng Sinclair MD at 07/30/2024 12:57 PM CDT * Viry Soliman, PT - 07/26/2024 9:29 AM CDT Physical Therapy Physical Therapy Evaluation Note NOTE: This is a summary note of the barreto components of the evaluation session. For full details, review chart for all flowsheets documented on by this physical therapy clinician on this date. Vital signs are documented in the vital signs flowsheet. For questions, please review the treatment team and contact the PT or APPLIANCE ASSEMBLER currently assigned to this patient. If a physical therapy clinician is not assigned to this patient, please call [phone]. 07/26/24 2560 General Chart Reviewed Yes Session Type Evaluation PT Received On 07/26/24 Safe Environment Arm band checked;Patient found in supine;Session completed bedside;Gait belt not utilized, see comment Subjective Agreeable to Therapy Family/Caregiver Present No Physical Therapy-Patient Goal fishing Precautions Precautions Fall risk;Cardiac sternal Precaution Comments Cardiac Sternal Precautions handout provided Home Living Type of Home House Home Layout One level Home Access Stairs to enter with rails Entrance Stairs-Rails Left Entrance Stairs-Number of Steps 2 Home Mobility Equipment-Available Wheeled walker;Single point cane Home Mobility Equipment-Currently Using Single point cane Prior Function Level of Stephens Independent functional transfers;Independent with ambulation (Mod I with SC) Lives With Son Receives Help From Family (son, FT) Fall within the last 6 months No Activity Tolerance Activity Tolerance Comments RPE with activity: 1010 Pain Assessment Pain Assessment No/denies pain Cognition Arousal/Alertness Appropriate responses to stimuli;Lethargic Orientation Oriented X4 (person, place, time, situation);Able to orient when provided with multiplechoice options Following Commands Follows all commands and directions without difficulty Compliance/Behavior Easy to engage Sensation Light Touch Severe deficits in the RLE;Severe deficits in the LLE (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), notable hammer toes) Numbness/Tingling Yes Sensation Comments skin intact to BLE with 1+ BLE edema noted Static Sitting Balance Static Sitting-Balance Support Bilateral upper extremity supported;Feet supported Static Sitting-Sitting Surface Bed Static Sitting-Level of Assistance Minimum assistance Static Standing Balance Static Standing-Balance Support Bilateral upper extremity supported Static Standing-Standing Surface Floor Static Standing-Level of Assistance Moderate assistance Static Standing-Comment/# of Minutes x30 seconds ICU Mobility Scale ICU Mobility Scale 5 FSS-ICU Functional Status Score (ICU scale) Rolling 3 Supine to Sit 3 Sitting 5 Sit to Stand 3 Ambulation or Wheelchair Mobility? Ambulation Ambulation 0 Score (Out of 35) 14 Bed Mobility 1 Bed Mobility From 1 Supine Bed Mobility Type 1 To Bed Mobility to 1 Edge of bed Level of Assistance 1 Moderate Assist Bed Mobility Comments 1 assist with trunk elevation Transfer 1 Transfer From 1 Sit Transfer Type 1 To and from Transfer to 1 Stand Technique 1 Sit to stand;Stand to sit Transfer Device 1 Hand held assist Transfer Level of Assistance 1 Moderate Assist;Moderate verbal cues;Moderate tactile cues (x2) Transfers 2 Transfer From 2 Bed Transfer Type 2 To Transfer to 2 Chair with arms Technique 2 Stand and step Transfer Device 2 Hand held assist Transfer Level of Assistance 2 Moderate Assist;Maximal verbal cues;Maximal tactile cues (x2) Trials/Comments 2 poor wt shift, lateral stepping Ambulation Ambulation No (due to wkns, Optiflow) RLE Assessment RLE Assessment WFL LLE Assessment LLE Assessment WFL Other Comments Other PT Comments VSS throughout session on Optiflow, pt tolerated session well. Anticipate continued progression towards PLOF and goals with continued intervention. Basic Mobility - 6 Click How much difficulty does the patient have: Turning over in bed 2 How much difficulty does the patient currently have: Sitting down and standing up from a chair witharms? 2 How much difficulty does the patient have: Moving from lying on back to sitting on the side of the bed? 2 How much difficulty does the patient have: Moving to and from a bed to a chair including wheelchair? 2 How much help does the patient currently need: Walk in hospital room? 1 How much help from another person does the patient currently need: Climbing 3-5 steps with a railing? 1 Total 6 Click Score (range 6-24) 10 Score Interpretation 28.13 Safe Environment End of Therapy Session Safe Environment End of Therapy Session Patient left in chair;RN notified;Call light within reach;Overbed table within reach Assessment Prognosis Good Problem List Gait deviations;Decreased strength;Decreased endurance;Impaired balance;Decreased mobility Barriers to Discharge Current Mobility Status Plan Plan Plan of care initiated;If this is the last note, consider this the discharge summary Recommendation/Plan PT Recommendation/Plan Inpatient Rehab Facility Patient at high risk for Falls;Readmission;Injury due to decreased ability to care for self;Injury due to reduced functional status;Injury due to balance deficits;Injury at home as patient has not returned to prior level of function;Developing impaired skin integrity Recommend Inpatient Rehab/Acute Rehab due to Ability to actively participate in intensive therapy 3hours/day, 5 days/week or 900 minutes per week;Highly motivated to participate in therapy;Not at baseline due to impaired ability to complete ADLs;Impaired ability to complete functional mobility;Likely to return to the community at discharge with support system in place;Requires greater than 25% physical assistance with most mobility tasks PT Frequency during current admission 3-5x/wk Treatment/Interventions during current admission Balance Training;Bed mobility;Endurance training;Functional activity;Functional transfer training;Gait training;Stair training;Strengthening;Therapeutic activity;Therapeutic exercise;Transfer training PT Equipment Recommended None PT - Next Appointment 07/28/24 PT - OK to Discharge No PT Evaluation Complete Yes Time Calculation Start Time 0859 Stop Time 09 Time Calculation (min) 30 min Multi-Disciplinary Problems (from Physical Therapy) Active Problems Problem: Mobility Start Date: 07/26/24 Goal Start Date Expected End Date End Date LTG - Patient will ambulate community distance 07/26/24 08/09/24 -- Goal Details: MOd I with SC Goal Start Date Expected End Date End Date STG - Patient will ambulate 07/26/24 08/09/24 -- Goal Details: 250ft, SBA LRAD Goal Start Date Expected End Date End Date STG - Patient will ascend and descend 2 stairs with the following level of assist: 07/26/24 08/09/24 -- Goal Details: SBA with HR Problem: Transfers Start Date: 07/26/24 Goal Start Date Expected End Date End Date STG - Patient will perform bed mobility 07/26/24 08/09/24 -- Goal Details: SBA Goal Start Date Expected End Date End Date STG - Patient will transfer sit to and from stand 07/26/24 08/09/24 -- Goal Details: SBA LRAD Problem: PT Misc Start Date: 07/26/24 Goal Start Date Expected End Date End Date PT STG - Misc 1 07/26/24 08/09/24 -- Goal Details: Patient and caregivers will participate in and demonstrate understanding of therapeutic exercise and safe mobility strategies to improve independence with functional mobility. * Amber Rose PA - 07/26/2024 6:37 AM CDTAssociated Order(s): Critical Care Post-Procedure Diagnose(s): Coronary artery disease, unspecified vessel or lesion type, unspecifiedwhether angina present, unspecified whether [facility] or transplanted heart CT ICU Daily Progress Team: 8200 2 AM Subjective: Patient is a 74 y.o. male admitted on 07/24/2024 6:02 AM with chief complaint of coronary artery disease. Interval History: - wean veletri q4h until off - once veletri off, begin epi wean q8h for CI > 2.2 - bumex 2 mg, FBG net negative 1L - continue nitro infusion - encourage pulm hygiene, PT, OT, OOBTC HPI: Mr Fink is a 74 y.o. [...] RCA subtotal occlusion. He was referred to [facility] for surgical management. Hospital course / Events / Procedures: - 07/24: s/p CABG x 3 (BURGESS to LAD, left radial to OM, SVG to PDA. Significant radial artery spasm, treated with papaverine and nitroglycerin. Prior to the case, patient with known RV dysfunction. During EMILE, RV function improved with MAPs in the 80s, so levophed continued. OR totals: 1L crystalloid, 1 unit PRBC, 1 unit FFP, 1 unit PLT. A and V wires placed. mCT x 2 and bilateral chest tubes. Extubated in ICU post op. Vaso/levo/epi. - 07/25: decreased CI, added veletri, epi up to 0.10 with improvement in indices. Pressors weaned off. Diuresed. Objective: Physical Exam: Gen: awake in bed Neuro: A&Ox4, non-focal, follows commands, LANDRUM weakly CV: S1 and S2, DDD 100, 100% paced. Chest tubes to suction. No air leak noted. Pulm: Airvo in place, lung sounds clear, respirations even/unlabored GI: Abdomen Soft/NT/ND : Castro to gravity Skin: Warm, BLE edema with venous stasis changes, palpable pulses Drains: Castro, mCT x 2, pCT x 2, castro Wounds: see RN flowsheet Access: RIJ QLC + swan, right radial art line Medications Scheduled Meds:acetaminophen, 1,000 mg, oral, Q6H HILDA aspirin, 81 mg, oral, Daily atorvastatin, 40 mg, oral, Daily bumetanide, 1 mg, intravenous, Once chlorhexidine, 15 mL, swish & spit, TID clopidogreL, 75 mg, oral, Daily DULoxetine DR, 60 mg, oral, Nightly heparin, 5,000 Units, subcutaneous, Q8H HILDA pantoprazole DR, 40 mg, oral, Daily polyethylene glycol, 17 g, oral, Daily senna, 1 tablet, oral, BID Continuous Infusions:EPINEPHrine, 0-0.1 mcg/kg/min, Last Rate: 0.06 mcg/kg/min (07/26/24599) epoprostenol, 160 mcg/hr, Last Rate: 160 mcg/hr (07/26/24 0530) insulin regular, 0-30 Units/hr, Last Rate: 2 Units/hr (07/26/24599) Lactated Ringer's, 10 mL/hr, Last Rate: 10 mL/hr (07/26/24599) nitroglycerin, 10 mcg/min, Last Rate: 10 mcg/min (07/26/24599) norepinephrine, 0-2 mcg/kg/min sodium chloride 0.9%, 3-12 mL/hr, Last Rate: 9 mL/hr (07/26/24599) vasopressin, 0-0.06 Units/min, Last Rate: Stopped (07/25/24 1520) Vital signs for last 24 hours: Pulse: [95-102] 100 Resp: [11-24] 24 SpO2: [90 %-100 %] 100 % Arterial Line BP: (94-149)/(50-73) 136/66 FiO2 (%): [30 %-50 %] 40 % Hemodynamics: PAP: (41-69)/(15-39) 57/29 PAP (Mean): [27 mmHg-50 mmHg] 40 mmHg CVP: [10 mmHg-34 mmHg] 20 mmHg CO: [4.47 L/min-6.37 L/min] 5.54 L/min CI: [1.97 L/min/m2-2.81 L/min/m2] 2.44 L/min/m2 Pulmonary Support: O2 Therapy: Supplemental oxygen O2 Del Method: High humidity nasal cannula, i.e. Optiflow, Vapotherm FiO2 (%): 40 % O2 Flow Rate (L/min): 35 L/min FiO2 (%): 40 % Intake/Output: Intake/Output Summary (Last 24 hours) at 07/26/2024636 Last data filed at 07/26/2024 06 Gross per 24 hour Intake 1823.9 ml Output 1615 ml Net 208.9 ml Lab/Radiology/Diagnostic Review: Laboratory review: Lab results in the last 12 hours: Recent Results (from the past 12 hour(s)) POCT glucose Collection Time: 07/25/24 8:05 PM Result Value Ref Range Glucose, POC 119 70 - 199 mg/dL Potassium, whole blood Collection Time: 07/25/24 8:07 PM Result Value Ref Range Potassium, bld 4.7 3.3 - 4.9 mmol/L Oxyhemoglobin, central venous Collection Time: 07/25/24 8:07 PM Result Value Ref Range Oxyhemoglobin, CV 63.6 % Lactate Collection Time: 07/25/24 8:07 PM Result Value Ref Range Lactate 3.6 (H) 0.7 - 2.0 mmol/L Blood gas, arterial Collection Time: 07/25/24 8:07 PM Result Value Ref Range pH, Art 7.32 (L) 7.35 - 7.45 PCO2, Arterial 41 35 - 45 mmHg PO2, Arterial 73 (L) 83 - 108 mmHg HCO3 Art (Calculated) 22 20 - 30 mmol/L BE, art -5 mmol/L O2 Sat Art (Measured) 94 90 - 95 % Hemoglobin total, central venous Collection Time: 07/25/24 8:07 PM Result Value Ref Range Hemoglobin total, CV 8.4 (L) 13.0 - 17.5 g/dL POCT glucose Collection Time: 07/25/24 10:30 PM Result Value Ref Range Glucose, POC 111 70 - 199 mg/dL POCT glucose Collection Time: 07/26/24 12:28 AM Result Value Ref Range Glucose, POC 88 70 - 199 mg/dL CBC without differential Collection Time: 07/26/24 12:33 AM Result Value Ref Range WBC 14.9 (H) 3.8 - 9.9 K/cumm Hgb 8.2 (L) 13.0 - 17.5 g/dL Hct 25.1 (L) 38.9 - 50.3 % Plt 77 (L) 150 - 400 K/cumm MPV 9.8 9.1 - 12.3 fL RBC 3.05 (L) 4.30 - 5.80 M/cumm MCV 82.3 81.3 - 96.4 fL MCH 26.9 (L) 27.1 - 33.3 pg MCHC 32.7 32.3 - 35.7 g/dL RDW CV 16.4 (H) 11.1 - 14.9 % RDW SD 49.4 (H) 35.7 - 48.1 fL NRBC abs 0.00 0.00 - 0.01 K/cumm Basic metabolic panel Collection Time: 07/26/24 12:33 AM Result Value Ref Range Sodium 140 135 - 145 mmol/L Potassium, pl 4.8 3.3 - 4.9 mmol/L Chloride 107 97 - 110 mmol/L CO2 22 22 - 32 mmol/L Anion gap 11 2 - 15 mmol/L BUN 27 (H) 6 - 25 mg/dL Creatinine 1.22 0.80 - 1.30 mg/dL Glucose 98 70 - 199 mg/dL Calcium 8.5 8.5 - 10.3 mg/dL Magnesium Collection Time: 07/26/24 12:33 AM Result Value Ref Range Magnesium 2.1 1.4 - 2.5 mg/dL Phosphorus Collection Time: 07/26/24 12:33 AM Result Value Ref Range Phosphorus, pl 3.9 2.3 - 4.5 mg/dL Oxyhemoglobin, central venous Collection Time: 07/26/24 12:33 AM Result Value Ref Range Oxyhemoglobin, CV 69.8 % Blood gas, arterial Collection Time: 07/26/24 12:33 AM Result Value Ref Range pH, Art 7.34 (L) 7.35 - 7.45 PCO2, Arterial 41 35 - 45 mmHg PO2, Arterial 139 (H) 83 - 108 mmHg HCO3 Art (Calculated) 23 20 - 30 mmol/L BE, art -3 mmol/L O2 Sat Art (Measured) 99 (H) 90 - 95 % eGFR Collection Time: 07/26/24 12:33 AM Result Value Ref Range eGFR 63 >=60 mL/min/1.73 m2 POCT glucose Collection Time: 07/26/24 1:15 AM Result Value Ref Range Glucose, POC 100 70 - 199 mg/dL POCT glucose Collection Time: 07/26/24 2:04 AM Result Value Ref Range Glucose, POC 116 70 - 199 mg/dL POCT glucose Collection Time: 07/26/24 3:15 AM Result Value Ref Range Glucose, POC 127 70 - 199 mg/dL POCT glucose Collection Time: 07/26/24 4:12 AM Result Value Ref Range Glucose, POC 150 70 - 199 mg/dL Blood gas, arterial Collection Time: 07/26/24 4:14 AM Result Value Ref Range pH, Art 7.37 7.35 - 7.45 PCO2, Arterial 36 35 - 45 mmHg PO2, Arterial 151 (H) 83 - 108 mmHg HCO3 Art (Calculated) 22 20 - 30 mmol/L BE, art -4 mmol/L O2 Sat Art (Measured) 100 (H) 90 - 95 % Oxyhemoglobin, central venous Collection Time: 07/26/24 4:14 AM Result Value Ref Range Oxyhemoglobin, CV 67.0 % Hemoglobin total, central venous Collection Time: 07/26/24 4:14 AM Result Value Ref Range Hemoglobin total, CV 9.3 (L) 13.0 - 17.5 g/dL POCT glucose Collection Time: 07/26/24 6:04 AM Result Value Ref Range Glucose, POC 123 70 - 199 mg/dL XR Chest 1 View - in PM Result Date: 07/25/2024 The current study is compared with the prior radiograph dated 07/14/2024 Endotracheal tube is 3.7 cm above the stephanie.Right internal jugular central venous catheter terminates in the upper superior vena cava. Right IJ pulmonary catheter projects over the area of the main pulmonary artery with evidence of kinking in the distal portion. Attention on follow-up is suggested. There are 3 thoracotomy tubes present. Interval median sternotomy with sternal plates present. Heart size is the upper limitsof normal. There is new bibasilar airspace opacities with associated volume loss, likely representing atelectasis within the postoperative status. Small bilateral pleural effusions. No pneumothorax. Electronically signed by: Jed Perdomo M.D. Assessment and Plan of Care: NEURO: #Acute on Chronic Pain - hold home pregabalin given VITALY - HILDA acetaminophen - PRN robaxin 500 mg TID (home med) - PRN oxycodone 2.5 mg q4h - PT, OT #ICA stenosis, chronic - Left ICA stenosis <50%. Right ICA stenosis 50-69%. - aspirin and statin as below #mood, chronic - resume duloxetine 60 mg daily CV: #CAD, chronic #Cardiogenic shock #RV dysfunction #Elevated Lactate Level - 07/24: s/p CABG x 3 (BURGESS to LAD, left radial to OM, SVG to PDA - levo/vaso titrated off 07/25 - wean veletri q4h until off - plan to titrate Epi q8h for CI 2.2-4 L/min/m2 once veletri off - continue nitroglycerin at 10 mcg/min for radial artery spasm - diuresis: 2 mg bumex FBG net negative 1 L - aspirin - plavix - atorvastatin - monitor mediastinal and bilateral pleural CT output - CINTIA to right leg, monitor output #HTN, chronic #HLD, chronic - home regimen: bumex 0.5 mg PRN, carvedilol 3.125 mg BID PULM: #Acute respiratory insufficiency - wean supplemental oxygen for SpO2 > 92% - pulmonary hygiene, IS - PRN albuterol #JACQUELINE, chronic - home CPAP unit at bedside GI: - Nutrition plan: diabetic, cardiac diet - Bowel regimen: miralax, senna #GERD, chronic - continue home PPI (omeprazole not on formulary) #obesity, POA - Body mass index is 35.15 kg/m??. - PT, RD following Endo: #IDDM, chronic Hgb A1c 7.5 - home regimen: glargine 90 units, novolog 6 units AC, metformin, semaglutide - continue insulin infusion RENAL: #oliguric VITALY - castro in place for strict I&Os - avoid nephrotoxins, renally dose medications - trend BMP - diuresis as above #hyperkalemia - monitor WBK HEME: #Acute blood loss anemia, post operatively - intraoperatively received: 1 unit pRBC, 1 unit PLT, 1 unit FFP - trend CBC daily - DVT prophylaxis: [facility] ID: Lab Results Component Value Date WBC 14.9 (H) 07/26/2024 #Leukocytosis, reactive post op - trend white count and fever curve - s/p vancomycin and ancef x 24 hrs post op Intensive Care Unit Standards of Care: Restraints: n/a DVT prophylaxis: SCD, SQH Vascular access: RIJ QLC+SWAN, right radial arterial line Nutrition: cardiac, diabetic diet Goals of care: full code Assessment and plan has been reviewed with ICU attending and fellow physicians. HATTIE Ortez Critical Care Performed by: Amber Rose PA Authorized by: Amber Rose PA CRITICAL CARE: Team: 83 CTICU Shift: AM Level of Billing: Critical Care My time spent with this patient was 80 minutes: Critical Provider Statement: I have seen and examined the patient on this day of service. I have reviewed and confirmed the history, physical exam, laboratory and radiologic data as documented in thesigned ICU note. I have reviewed and discussed my treatment plan with the ICU team and other medical/systems consultant staff, making frequent assessments and decisions regarding this patient's complex medical care. Critical Care time was exclusive of time spent performing separately billed procedures, treating other patients, and teaching. This time was in addition to and separate from critical care provided by other practitioners in my group on this day of service. Critical Care was necessary to treat or prevent imminent or life-threatening deterioration of the following conditions: I spent time reviewing and interpreting data from bedside monitors, laboratory results, and imaging, I spent time discussing the management of this critically ill patient with consultants and the medical staff and I spent time documenting in the medical record Cosigned by Feng Sinclair MD at 07/30/2024 12:45 PM CDT * Mala Pineda NP - 07/25/2024 6:40 PM CDTAssociated Order(s): Critical Care Post-Procedure Diagnose(s): Coronary artery disease, unspecified vessel or lesion type, unspecifiedwhether angina present, unspecified whether [facility] or transplanted heart ICU Daily Progress Shifts: NPP Shift Options: 82-2 PM Subjective Patient is a 74 y.o. male admitted to the hospital on 07/24/2024 6:02 AM with/following: CAD Interval History: - vaso for MAP > 75 - lasix 40 mg IV x 1 with poor response, bumex 1 mg x 1 - lokelma x 1, trend WBK - robaxin, oxy increased to 5mg - home cymbalta - DVT ppx - d/c vanc - SvO2 48 --> increase epi and add veletri Hospital Course: 07/24: CABG x 3 (BURGESS to LAD, left radial to OM, SVG to PDA and sternal plating. Overnight changed to Epi from GROVE SUPERINTENDENT. 9/17: Inhaled Veletri added for worsening RV dysfunction. Objective Medications: Scheduled Meds:acetaminophen, 1,000 mg, oral, Q6H HILDA [START ON 07/26/2024] aspirin, 81 mg, oral, Daily [START ON 07/26/2024] atorvastatin, 40 mg, oral, Daily chlorhexidine, 15 mL, swish & spit, TID [START ON 07/26/2024] clopidogreL, 75 mg, oral, Daily DULoxetine DR, 60 mg, oral, Nightly heparin, 5,000 Units, subcutaneous, Q8H HILDA pantoprazole DR, 40 mg, oral, Daily polyethylene glycol, 17 g, oral, Daily senna, 1 tablet, oral, BID Continuous Infusions:EPINEPHrine, 0-0.1 mcg/kg/min epoprostenol, 160 mcg/hr, Last Rate: 160 mcg/hr (07/25/24 1705) insulin regular, 0-30 Units/hr, Last Rate: 5 Units/hr (07/25/24 1800) Lactated Ringer's, 10 mL/hr, Last Rate: 10 mL/hr (07/25/24 1800) nitroglycerin, 10 mcg/min, Last Rate: 10 mcg/min (07/25/24 1800) norepinephrine, 0-2 mcg/kg/min sodium chloride 0.9%, 3-12 mL/hr, Last Rate: 9 mL/hr (07/25/24 1800) vasopressin, 0-0.06 Units/min, Last Rate: Stopped (07/25/24 1520) Vitals: Temp: [37.5 ??C (99.5 ??F)] 37.5 ??C (99.5 ??F) Pulse: [92-102] 95 BP: (141)/(73) 141/73 Resp: [9-23] 14 SpO2: [77 %-100 %] 100 % SVO2: [46 %-65 %] 65 % Arterial Line BP: (94-152)/(50-78) 135/62 FiO2 (%): [21 %-30 %] 30 % Fluid balance: I/O this shift: In: 1139.1 [P.O.:420; I.V.:679.1; IV Piggyback:40] Out: 970 [Urine:500; Drains:65; Chest Tube:405] Intake/Output Summary (Last 24 hours) at 07/25/2024 1840 Last data filed at 07/25/2024 1800 Gross per 24 hour Intake 4015.41 ml Output 1720 ml Net 2295.41 ml Ventilator settings: FiO2 (%): 30 % (07/25 1800) Hemodynamic parameters: PAP: 52/33 (07/25 1800) CVP: 23 mmHg (07/25 1800) PCWP: -- CO: 5.54 L/min (07/25 152) CI: 2.44 L/min/m2 (07/25 1529) SVO2: 65 % (07/24 2300) Pacemaker Overdrive Pacing: -- Cardiac Rhythm: A-V Sequential paced (07/25 1800) Pacer Mode: -- Physical exam: Neuro: drowsy, oriented x4, CAM (-), moves all extremities and follows simple commands Cardiac: epicardial wires set to DDD 100, RRR, S1 S2, periphery warm, pulses palpable distally Pulm: on OptiFlow 30% FIO2, lungs diminished bilaterally, PCT x2 without air leak GI: abdomen obese, soft, nontender, hypoactive bowel sounds : castro with clear yellow urine Skin: [place], warm, dry, midline sternal incision covered w/ OR dressing intact, MCT x2. R thigh SVG site covered w/ gauze and MELONIE wrap, intact. Bulb CINTIA to self- suction. L forearm incision covered w/ dressing, intact. Bulb CINTIA to self suction. Laboratory data: Recent Labs Lab Units 07/25/24 0802 07/25/24 0438 07/25/24 0223 07/24/24 1621 WBC K/cumm -- 24.7* -- 6.1 HEMOGLOBIN, POC g/dL 9.3* -- 9.3* -- HEMOGLOBIN g/dL -- 9.0* -- 9.1* HEMATOCRIT % -- 28.6* -- 27.8* HEMATOCRIT POC % 28.0* -- 28.0* -- PLATELETS K/cumm -- 150 -- 79* Recent Labs Lab Units 07/25/24 0438 07/24/24 1621 SODIUM mmol/L 142 141 POTASSIUM PLASMA mmol/L 5.4* 4.9 CHLORIDE mmol/L 107 107 CO2 mmol/L 20* 24 BUN SERUM mg/dL 18 12 CREATININE mg/dL 1.12 0.79* CALCIUM mg/dL 8.7 9.1 Recent Labs Lab Units 07/24/24 1621 PROTIME (PT) sec 15.7* INR 1.44* APTT sec 34 Recent Labs Lab Units 07/25/24 1702 07/25/24 1313 07/25/24 1013 PH ART 7.30* 7.30* 7.29* PCO2 ART mmHg 39 38 38 PO2 ART mmHg 86 94 71* BASE EXC ART mmol/L -6 -7 -8 Diagnostic review (radiology / micro / other): CXR personally reviewed. Impression and Plan: Active problems/Plans: Acute pain Due to cardiac surgery. States that pain is controlled at this time. Pt very drowsy w/ Dilaudid. - APAP scheduled - oxycodone 5 mg Q4H PRN 1st line pain - home robaxin PRN restarted Mood disorder - continue home Cymbalta CAD HFrEF Cardiogenic shock RV dysfunction Elevated lactate Pulmonary hypertension 07/24: CABG x3 (BURGESS to LAD, left radial to OM, SVG to PDA) and sternal plating. Post CPB EMILE on GROVE SUPERINTENDENT 5 w/ mildly improved LV function (from 40-50% pre CPB), mild RV dysfunction. Changed to Epi last night d/t low SVR and high pressor requirement. Epi increased to 0.09 this AM d/t CI dropping to 1.9-2 and PA pressures increasing to 1/2 systemic. Inhaled Veletri also added w/ improvement in CI and reduction in PA pressures. Currently supported w/ Epi 0.08 and inhaled Veletri 160 mcg/hr, pressors off. CI 2.4-2.8. PAS ~40% systemic, CVP 15. Lactate 5.1 ->2.3. - wean Epi Q4H for CI >2.2 down to 0.06 and hold wean - continue NTG 10 mcg/min due to radial artery graft spasm intra op - keep MAP >80 in setting of RV dysfunction - continue inhaled Veletri 160 mcg/hr for RV support - ASA/statin daily - Plavix daily - hold GDMT in acute setting - EPW to DDD 100 - MCT to -20 mmHg suction HTN - chronic HLD - chronic - hold home Coreg - statin daily Atelectasis Asthma JACQUELINE Extubated post op. Currently on OptiFlow for inhaled Veletri administration. CXR w/ atelectasis. - wean supplemental O2 for SPO2 >92% - encourage pulmonary hygiene w/ IS, coughing/deep breathing - continue home nocturnal CPAP once weaned from Veletri - PCT to -20 mmHg suction - CXR daily GERD - continue home PPI Type 2 diabetes mellitus Hgb A1C 7.5. Takes Lantus and insulin w/ meals, and metformin at home. Arrived from OR on insulin infusion. - continue insulin infusion per ICU protocol Hyperkalemia K up to mid 5's. Lokelma and Lasix given today. Little response w/ Lasix then Bumex. K stable ~5. - trend whole blood K Acute blood loss anemia Due to cardiac surgery. Received 1 PRBC, 1 FFP, 1 platelet intra op. Hgb stable at 9. No s/s activebleeding, chest tube output stable. - consider transfusion for Hgb < 7 or for hemodynamic instability - CBC daily Post op care to include: Aspirin/statin SCD's and subQ heparin for DVT ppx Heart healthy, consistent carb diet Bowel regimen GI prophylaxis: Home PPI Insulin per ICU protocol PT/OT Updates: 1999: PaO2 73. FIO2 increased to 50% Mala Pineda NP Critical Care Performed by: Mala Pineda NP Authorized by: Mala Pineda NP CRITICAL CARE: Team: 83 CTICU Shift: PM Level of Billing: Critical Care My time spent with this patient was 80 minutes: Critical Provider Statement: I have seen and examined the patient on this day of service. I have reviewed and confirmed the history, physical exam, laboratory and radiologic data as documented in thesigned ICU note. I have reviewed and discussed my treatment plan with the ICU team and other medical/systems consultant staff, making frequent assessments and decisions regarding this patient's complex medical care. Critical Care time was exclusive of time spent performing separately billed procedures, treating other patients, and teaching. This time was in addition to and separate from critical care provided by other practitioners in my group on this day of service. Critical Care was necessary to treat or prevent imminent or life-threatening deterioration of the following conditions: I spent time reviewing and interpreting data from bedside monitors, laboratory results, and imaging, I spent time discussing the management of this critically ill patient with consultants and the medical staff and I spent time documenting in the medical record Cosigned by Feng Sinclair MD at 07/30/2024 12:57 PM CDT * Amber Rose PA - 07/25/2024 6:35 AM CDTAssociated Order(s): Critical Care Post-Procedure Diagnose(s): Coronary artery disease, unspecified vessel or lesion type, unspecifiedwhether angina present, unspecified whether [facility] or transplanted heart CT ICU Daily Progress Team: [id number] 2 AM Subjective: Patient is a 74 y.o. male admitted on 07/24/2024 6:02 AM with chief complaint of coronary artery disease. Interval History: - titrate levo for MAP > 75 - Hyperkalemia -- lasix 40 mg IV x 1, lokelma x 1. Trend WBK q4h. - patient with worsening PAP and CI 1.9, acidotic on ABG, SvO2 48.0. Administered 1 mg bumex, started on veletri, and epi gtt increased. Repeat labs with improved SvO2 to 28, Alex 2.4/CI 2.8. Continue to titrate epi q8h for CI > 2.1. - resume home duloxetine and robaxin - pulm hygiene, PT, OT as able HPI: Mr Fink is a 74 y.o. [...] RCA subtotal occlusion. He was referred to [facility] for surgical management. Hospital course / Events / Procedures: - 07/24: s/p CABG x 3 (BURGESS to LAD, left radial to OM, SVG to PDA. Significant radial artery spasm, treated with papaverine and nitroglycerin. Prior to the case, patient with known RV dysfunction. During EMILE, RV function improved with MAPs in the 80s, so levophed continued. OR totals: 1L crystalloid, 1 unit PRBC, 1 unit FFP, 1 unit PLT. A and V wires placed. mCT x 2 and bilateral chest tubes. Extubated in ICU post op. Vaso/levo/epi. Objective: Physical Exam: Gen: awake in bed Neuro: A&Ox4, non-focal, follows commands, LANDRUM weakly CV: S1 and S2, 100% paced Pulm: home nasal CPAP in place. LCTA, respirations even/unlabored GI: Abdomen Soft/NT/ND : Castro to gravity Skin: Warm, BLE edema with venous stasis changes, palpable pulses Drains: Castro, mCT x 2, pCT x 2, castro Wounds: see RN flowsheet Access: RIJ QLC + swan, right radial art line Medications Scheduled Meds:acetaminophen, 1,000 mg, oral, Q6H HILDA aspirin, 81 mg, feeding tube, Daily atorvastatin, 40 mg, feeding tube, Daily ceFAZolin, 2,000 mg, intravenous, Q8H HILDA chlorhexidine, 15 mL, mouth/throat, BID clopidogreL, 75 mg, feeding tube, Daily furosemide, 40 mg, intravenous, Once pantoprazole DR, 40 mg, oral, Daily polyethylene glycol, 17 g, oral, Daily senna, 1 tablet, oral, BID sodium zirconium cyclosilicate, 10 g, oral, Once [Held by Provider] vancomycin, 1,000 mg, intravenous, Once Continuous Infusions:EPINEPHrine, 0-0.1 mcg/kg/min insulin regular, 0-30 Units/hr, Last Rate: 6 Units/hr (07/25/2400) Lactated Ringer's, 10 mL/hr, Last Rate: 10 mL/hr (07/25/24699) nitroglycerin, 10 mcg/min, Last Rate: 10 mcg/min (07/25/24699) norepinephrine, 0-2 mcg/kg/min sodium chloride 0.9%, 3-12 mL/hr sodium chloride 0.9%, 3-12 mL/hr, Last Rate: 9 mL/hr (07/25/24 0700) Vital signs for last 24 hours: Temp: [37.5 ??C (99.5 ??F)] 37.5 ??C (99.5 ??F) Pulse: [90-105] 100 BP: (141)/(73) 141/73 Resp: [9-20] 15 SpO2: [77 %-100 %] 98 % SVO2: [46 %-65 %] 65 % Arterial Line BP: (90-193)/(53-84) 136/72 FiO2 (%): [21 %-100 %] 21 % Hemodynamics: PAP: (42-69)/(12-42) 56/31 PAP (Mean): [28 mmHg-52 mmHg] 42 mmHg CVP: [13 mmHg-34 mmHg] 30 mmHg SVO2: [46 %-65 %] 65 % CO: [4.64 L/min-6.49 L/min] 5.52 L/min CI: [2.04 L/min/m2-2.86 L/min/m2] 2.43 L/min/m2 Pulmonary Support: O2 Therapy: Supplemental oxygen O2 Del Method: CPAP/Bi-PAP mask FiO2 (%): 21 % O2 Flow Rate (L/min): 4 L/min Adult Vent Mode: Pressure support Ventilation FiO2 (%): 21 % S RR: 18 PEEP/CPAP/EPAP (cm H2O): 8 cm H20 Pressure Support (cm H2O): 10 cm H20 Intake/Output: Intake/Output Summary (Last 24 hours) at 07/25/2024 0833 Last data filed at 07/25/2024 0700 Gross per 24 hour Intake 5476.71 ml Output 1665 ml Net 3811.71 ml Lab/Radiology/Diagnostic Review: Laboratory review: Lab results in the last 12 hours: Recent Results (from the past 12 hour(s)) POCT glucose Collection Time: 07/24/24 8:59 PM Result Value Ref Range Glucose, POC 180 70 - 199 mg/dL POCT glucose Collection Time: 07/24/24 9:54 PM Result Value Ref Range Glucose, POC 174 70 - 199 mg/dL POCT glucose Collection Time: 07/24/24 10:48 PM Result Value Ref Range Glucose, POC 175 70 - 199 mg/dL POCT glucose Collection Time: 07/25/24 12:13 AM Result Value Ref Range Glucose, POC 158 70 - 199 mg/dL POCT glucose Collection Time: 07/25/24 1:07 AM Result Value Ref Range Glucose, POC 155 70 - 199 mg/dL POC Blood Gas and Chemistries, Arterial - Collection Time: 07/25/24 2:23 AM Result Value Ref Range pH, Art POC 7.23 (L) 7.35 - 7.45 pCO2, Art POC 45 35 - 45 mmHg pO2, Art POC 100 83 - 108 mmHg Na, POC 140 135 - 145 mmol/L K POC 5.0 (H) 3.3 - 4.9 mmol/L Cl, POC 110 97 - 110 mmol/L Ionized Ca, POC 4.86 4.50 - 5.10 mg/dL Glucose, POC 156 70 - 199 mg/dL Lactate, POC 5.4 (Critical) 0.7 - 2.2 mmol/L SO2 (aliza) arterial 100 (H) 90 - 95 % Base excess, POC -8.3 mmol/L HCO3, Art POC 19 (L) 20 - 30 mmol/L Hct, POC 28.0 (L) 41.4 - 51.6 % Total Hb, POC 9.3 (L) 13.8 - 17.2 g/dL POCT glucose Collection Time: 07/25/24 3:18 AM Result Value Ref Range Glucose, POC 153 70 - 199 mg/dL CBC without differential Collection Time: 07/25/24 4:38 AM Result Value Ref Range WBC 24.7 (H) 3.8 - 9.9 K/cumm Hgb 9.0 (L) 13.0 - 17.5 g/dL Hct 28.6 (L) 38.9 - 50.3 % Plt 150 150 - 400 K/cumm MPV 10.6 9.1 - 12.3 fL RBC 3.36 (L) 4.30 - 5.80 M/cumm MCV 85.1 81.3 - 96.4 fL MCH 26.8 (L) 27.1 - 33.3 pg MCHC 31.5 (L) 32.3 - 35.7 g/dL RDW CV 15.8 (H) 11.1 - 14.9 % RDW SD 48.5 (H) 35.7 - 48.1 fL NRBC abs 0.00 0.00 - 0.01 K/cumm Basic metabolic panel Collection Time: 07/25/24 4:38 AM Result Value Ref Range Sodium 142 135 - 145 mmol/L Potassium, pl 5.4 (H) 3.3 - 4.9 mmol/L Chloride 107 97 - 110 mmol/L CO2 20 (L) 22 - 32 mmol/L Anion gap 15 2 - 15 mmol/L BUN 18 6 - 25 mg/dL Creatinine 1.12 0.80 - 1.30 mg/dL Glucose 168 70 - 199 mg/dL Calcium 8.7 8.5 - 10.3 mg/dL Magnesium Collection Time: 07/25/24 4:38 AM Result Value Ref Range Magnesium 2.3 1.4 - 2.5 mg/dL Phosphorus Collection Time: 07/25/24 4:38 AM Result Value Ref Range Phosphorus, pl 4.0 2.3 - 4.5 mg/dL eGFR Collection Time: 07/25/24 4:38 AM Result Value Ref Range eGFR 70 >=60 mL/min/1.73 m2 POCT glucose Collection Time: 07/25/24 4:41 AM Result Value Ref Range Glucose, POC 167 70 - 199 mg/dL Blood gas, arterial Collection Time: 07/25/24 4:42 AM Result Value Ref Range pH, Art 7.26 (L) 7.35 - 7.45 PCO2, Arterial 38 35 - 45 mmHg PO2, Arterial 144 (H) 83 - 108 mmHg HCO3 Art (Calculated) 18 (L) 20 - 30 mmol/L BE, art -9 mmol/L O2 Sat Art (Measured) 99 (H) 90 - 95 % Oxyhemoglobin, pulmonary artery Collection Time: 07/25/24 4:42 AM Result Value Ref Range Oxyhemoglobin, PA 60.4 % Potassium, whole blood Collection Time: 07/25/24 4:42 AM Result Value Ref Range Potassium, bld 5.0 (H) 3.3 - 4.9 mmol/L POCT glucose Collection Time: 07/25/24 6:13 AM Result Value Ref Range Glucose, POC 131 70 - 199 mg/dL POCT glucose Collection Time: 07/25/24 6:53 AM Result Value Ref Range Glucose, POC 139 70 - 199 mg/dL POC Blood Gas and Chemistries, Arterial - Collection Time: 07/25/24 8:02 AM Result Value Ref Range pH, Art POC 7.26 (L) 7.35 - 7.45 pCO2, Art POC 40 35 - 45 mmHg pO2, Art POC 131 (H) 83 - 108 mmHg Na, POC 139 135 - 145 mmol/L K POC 5.6 (H) 3.3 - 4.9 mmol/L Cl, POC 110 97 - 110 mmol/L Ionized Ca, POC 4.75 4.50 - 5.10 mg/dL Glucose, POC 151 70 - 199 mg/dL Lactate, POC 5.2 (Critical) 0.7 - 2.2 mmol/L SO2 (aliza) arterial 100 (H) 90 - 95 % Base excess, POC -8.6 mmol/L HCO3, Art POC 18 (L) 20 - 30 mmol/L Hct, POC 28.0 (L) 41.4 - 51.6 % Total Hb, POC 9.3 (L) 13.8 - 17.2 g/dL XR Chest 1 View - in PM Result Date: 07/25/2024 The current study is compared with the prior radiograph dated 07/14/2024 Endotracheal tube is 3.7 cm above the stephanie.Right internal jugular central venous catheter terminates in the upper superior vena cava. Right IJ pulmonary catheter projects over the area of the main pulmonary artery with evidence of kinking in the distal portion. Attention on follow-up is suggested. There are 3 thoracotomy tubes present. Interval median sternotomy with sternal plates present. Heart size is the upper limitsof normal. There is new bibasilar airspace opacities with associated volume loss, likely representing atelectasis within the postoperative status. Small bilateral pleural effusions. No pneumothorax. Electronically signed by: Jed Perdomo M.D. Assessment and Plan of Care: NEURO: #Acute on Chronic Pain - hold home pregabalin given VITALY - HILDA acetaminophen - PRN robaxin 500 mg TID (home med) - PRN oxycodone 2.5 mg q4h - PT, OT #ICA stenosis, chronic - Left ICA stenosis <50%. Right ICA stenosis 50-69%. - aspirin and statin as below #mood, chronic - resume duloxetine 60 mg daily CV: #CAD, chronic #Cardiogenic shock #RV dysfunction #Elevated Lactate Level - 07/24: s/p CABG x 3 (BURGESS to LAD, left radial to OM, SVG to PDA - continue levophed for MAP > 75 - titrate Epi q8h for CI 2.2-4 L/min/m2 - start veletri - continue nitroglycerin at 10 mcg/min for radial artery spasm - diuresis: poor response to lasix, given 1 mg bumex with good response - aspirin - plavix - atorvastatin - monitor mediastinal and bilateral pleural CT output - CINTIA to right leg, monitor output #HTN, chronic #HLD, chronic - home regimen: bumex 0.5 mg PRN, carvedilol 3.125 mg BID PULM: #Acute respiratory insufficiency - wean supplemental oxygen for SpO2 > 92% - pulmonary hygiene, IS - PRN albuterol #JACQUELINE, chronic - home CPAP unit at bedside GI: - Nutrition plan: diabetic, cardiac diet - Bowel regimen: miralax, senna #GERD, chronic - continue home PPI (omeprazole not on formulary) #obesity, POA - Body mass index is 35.15 kg/m??. - PT, RD following Endo: #IDDM, chronic - Hgb A1c 7.5 - home regimen: glargine 90 units, novolog 6 units AC, metformin, semaglutide - continue insulin infusion RENAL: #oliguric VITALY - castro in place for strict I&Os - avoid nephrotoxins, renally dose medications - trend BMP #hyperkalemia - Lasix 40 mg x1, lokelma x 1, trend WBK HEME: #Acute blood loss anemia, post operatively - intraoperatively received: 1 unit pRBC, 1 unit PLT, 1 unit FFP - trend CBC daily - DVT prophylaxis: [facility] ID: Lab Results Component Value Date WBC 24.7 (H) 07/25/2024 #Leukocytosis, reactive post op - trend white count and fever curve - continue vancomycin and ancef x 24 hrs Intensive Care Unit Standards of Care: Restraints: n/a DVT prophylaxis: SCD, SQH Vascular access: RIJ QLC+SWAN, right radial arterial line Nutrition: cardiac, diabetic diet Goals of care: full code Assessment and plan has been reviewed with ICU attending and fellow physicians. HATTIE Ortez Critical Care Performed by: Amber Rose PA Authorized by: Amber Rose PA CRITICAL CARE: Team: 83 CTICU Shift: AM Level of Billing: Critical Care My time spent with this patient was 90 minutes: Critical Provider Statement: I have seen and examined the patient on this day of service. I have reviewed and confirmed the history, physical exam, laboratory and radiologic data as documented in thesigned ICU note. I have reviewed and discussed my treatment plan with the ICU team and other medical/systems consultant staff, making frequent assessments and decisions regarding this patient's complex medical care. Critical Care time was exclusive of time spent performing separately billed procedures, treating other patients, and teaching. This time was in addition to and separate from critical care provided by other practitioners in my group on this day of service. Critical Care was necessary to treat or prevent imminent or life-threatening deterioration of the following conditions: I spent time reviewing and interpreting data from bedside monitors, laboratory results, and imaging, I spent time discussing the management of this critically ill patient with consultants and the medical staff and I spent time documenting in the medical record Cosigned by Feng Sinclair MD at 07/30/2024 12:45 PM CDT * Mala Pineda NP - 07/24/2024 6:46 PM CDTAssociated Order(s): Critical Care Post-Procedure Diagnose(s): Preoperative testing ICU Daily Progress Shifts: NPP Shift Options: 82-2 PM Subjective Patient is a 74 y.o. male admitted to the hospital on 07/24/2024 6:02 AM with/following: CAD Interval History: - arrived from OR s/p CABG - extubated Hospital Course: 07/24: CABG x 3 (BURGESS to LAD, left radial to OM, SVG to PDA and sternal plating Objective Medications: Scheduled Meds:acetaminophen, 1,000 mg, oral, Q6H HILDA aspirin, 81 mg, feeding tube, Daily [START ON 07/25/2024] atorvastatin, 40 mg, feeding tube, Daily ceFAZolin, 2,000 mg, intravenous, Q8H HILDA chlorhexidine, 15 mL, mouth/throat, BID [START ON 07/25/2024] clopidogreL, 75 mg, feeding tube, Daily [START ON 07/25/2024] pantoprazole DR, 40 mg, oral, Daily polyethylene glycol, 17 g, oral, Daily senna, 1 tablet, oral, BID [START ON 07/25/2024] vancomycin, 1,000 mg, intravenous, Once Continuous Infusions:insulin regular, 0-30 Units/hr, Last Rate: 1 Units/hr (07/24/241828) Lactated Ringer's, 10 mL/hr, Last Rate: 10 mL/hr (07/24/241831) nitroglycerin, 10 mcg/min, Last Rate: 10 mcg/min (07/24/241799) norepinephrine, 0-2 mcg/kg/min, Last Rate: 0.1 mcg/kg/min (07/24/241842) sodium chloride 0.9%, 3-12 mL/hr sodium chloride 0.9%, 3-12 mL/hr, Last Rate: 9 mL/hr (07/24/241799) Vitals: Temp: [36 ??C (96.8 ??F)] 36 ??C (96.8 ??F) Pulse: [52-105] 104 BP: (114-149)/(56-123) 149/123 Resp: [9-20] 15 SpO2: [95 %-100 %] 100 % SVO2: [50 %-57 %] 57 % Arterial Line BP: (90-193)/(53-84) 120/62 FiO2 (%): [40 %-100 %] 50 % Fluid balance: I/O this shift: In: 2562.2 [I.V.:1102.2; Blood:600; IV Piggyback:860] Out: 900 [Urine:600; Drains:45; Chest Tube:255] Intake/Output Summary (Last 24 hours) at 07/24/2024 1846 Last data filed at 07/24/2024 1800 Gross per 24 hour Intake 2562.19 ml Output 900 ml Net 1662.19 ml Ventilator settings: Adult Vent Mode: Pressure support Ventilation FiO2 (%): 50 % Pressure Support (cm H2O): 10 cm H20 (07/24 1715-07/24 1756) Hemodynamic parameters: PAP: 48/24 (07/24 1830) CVP: 15 mmHg (07/24 1830) PCWP: -- CO: 5.15 L/min (07/24 1807) CI: 2.27 L/min/m2 (07/24 1807) SVO2: 57 % (07/24 1830) Pacemaker Overdrive Pacing: -- Cardiac Rhythm: A-V Sequential paced (07/24 1830) Pacer Mode: -- Physical exam: Neuro: drowsy, oriented x4, CAM (-), moves all extremities and follows simple commands Cardiac: epicardial wires set to DDD 100, RRR, S1 S2, periphery warm, pulses palpable distally Pulm: on face mask, lungs diminished bilaterally, PCT x2 without air leak GI: abdomen obese, soft, nontender, hypoactive bowel sounds : castro with clear yellow urine Skin: Lopeno, warm, dry, midline sternal incision covered w/ OR dressing intact, MCT x2. R thigh SVG site covered w/ gauze and MELONIE wrap, intact. Bulb CINTIA to self- suction. L forearm incision covered w/ dressing, intact. Bulb CINTIA to self suction. Laboratory data: Recent Labs Lab Units 07/24/24 1621 07/24/24 1614 07/24/24 1415 WBC K/cumm 6.1 -- -- HEMOGLOBIN, POC g/dL -- 9.5* -- HEMOGLOBIN g/dL 9.1* -- -- HEMOGLOBIN POC g/dL -- -- 8.4* HEMATOCRIT % 27.8* -- -- POC HEMATOCRIT % -- -- 25.4* HEMATOCRIT POC % -- 29.0* -- PLATELETS K/cumm 79* -- -- Recent Labs Lab Units 07/24/24 1621 PROTIME (PT) sec 15.7* INR 1.44* APTT sec 34 Recent Labs Lab Units 07/24/24 1614 07/24/24 1414 07/24/24 1318 PH ART 7.35 7.35 7.39 PO2 ARTERIAL POC mmHg 224* 92 278* Diagnostic review (radiology / micro / other): CXR personally reviewed. Impression and Plan: Active problems/Plans: Acute pain Due to cardiac surgery. States that pain is not controlled at this time. - APAP scheduled - oxycodone 5 mg Q4H PRN 1st line pain - Dilaudid 0.2 mg Q2H PRN for breakthrough pain CAD HFrEF Cardiogenic shock RV dysfunction Elevated lactate Pulmonary hypertension 07/24: CABG x3 (BURGESS to LAD, left radial to OM, SVG to PDA) and sternal plating. Post CPB EMILE on GROVE SUPERINTENDENT 5 w/ mildly improved LV function (from 40-50% pre CPB), mild RV dysfunction. Currently supported w/ GROVE SUPERINTENDENT 5, NE 0.08. CI 2.27-2.3, PAS ~40% systemic, CVP 15. Lactate 2.3. - continue GROVE SUPERINTENDENT 5 - continue NTG 10 mcg/min due to radial artery graft spasm intra op - titrate NE to keep MAP >80 in setting of RV dysfunction - ASA/statin daily starting in AM - hold GDMT in acute setting - EPW to DDD 100 - MCT to -20 mmHg suction HTN - chronic HLD - chronic - hold home Coreg - statin daily starting in AM Atelectasis Asthma JACQUELINE Extubated post op. Currently on 10 L via face mask. CXR w/ atelectasis. - wean supplemental O2 for SPO2 >92% - encourage pulmonary hygiene w/ IS, coughing/deep breathing - continue home nocturnal CPAP - PCT to -20 mmHg suction - CXR daily GERD - continue home PPI Type 2 diabetes mellitus Hgb A1C 7.5. Takes Lantus and insulin w/ meals, and metformin at home. Arrived from OR on insulin infusion. - continue insulin infusion per ICU protocol Acute blood loss anemia Due to cardiac surgery. Received 1 PRBC, 1 FFP, 1 platelet intra op. Hgb now 9.1. Platelets 79. No s/s active bleeding, chest tube output stable. - consider transfusion for Hgb < 7 or for hemodynamic instability - CBC daily Post op care to include: Aspirin on POD #1 SCD's for DVT prop, eval for SQH on POD #1 Bowel regimen GI prophylaxis: Pepcid while intubated Insulin per ICU protocol PT/OT on POD #1 to eval & treat Updates: 2129: Patient still requiring NE 0.16 and vasopressin added. No response in BP from albumin given. SVR 600s. 2200: CI ~2.1 on Epi 0.05, CVP 18. UOP ~15 ml/hr. Epi increased to 0.06. Patient's RR was 9-10 following Dilaudid. Home CPAP started. 2300: CI improved to 2.4, SVR improved. CVP 20-22. NE requirement decreased. 0230: Lactate 5.4, suspect from Epi as hemodynamics remain stable. CVP 12-14. LR 500 ml given. Mala Pineda NP Critical Care Performed by: Mala Pineda NP Authorized by: Mala Pineda NP CRITICAL CARE: Team: 83 CTICU Shift: PM Level of Billing: Critical Care My time spent with this patient was 100 minutes: Critical Provider Statement: I have seen and examined the patient on this day of service. I have reviewed and confirmed the history, physical exam, laboratory and radiologic data as documented in thesigned ICU note. I have reviewed and discussed my treatment plan with the ICU team and other medical/systems consultant staff, making frequent assessments and decisions regarding this patient's complex medical care. Critical Care time was exclusive of time spent performing separately billed procedures, treating other patients, and teaching. This time was in addition to and separate from critical care provided by other practitioners in my group on this day of service. Critical Care was necessary to treat or prevent imminent or life-threatening deterioration of the following conditions: I spent time reviewing and interpreting data from bedside monitors, laboratory results, and imaging, I spent time discussing the management of this critically ill patient with consultants and the medical staff and I spent time documenting in the medical record Cosigned by Feng Sinclair MD at 07/30/2024 12:57 PM CDT documented in this encounter H&P Notes * Lucy Meyer MD - 08/04/2024 7:21 AM CDT I have reviewed the H&P, examined the patient, and endorse the findings as written. Plan of Care : Based on the above findings, I consider Abiel Fink to be an acceptable risk for : Procedure(s): INSERT/REPLACE IMPLANTABLE CARDIOVERTER-DEFIBRILLATOR (ICD) DUAL CHAMBER SYSTEM 62900 INSERT LV LEAD W PACEMAKER (PPM) OR IMPLANTABLE CARDIOVERTER-DEFIBRILLATOR (ICD) PLACEMENT (+) [id number] Source Note - Leonor Duncan MD - 07/31/2024 3:36 PM CDT Images from the original note were not included. Cardiology Consult Note - Electrophysiology Patient Name: Abiel Fink : 1950 Date of Service: 07/31/24 Requesting Attending: Leonor Quan, * Reason for Consult: Bradycardia HPI Abiel Fink is a 74 y.o. male with a history of hypertension, hyperlipidemia, CAD, 2nd degree AV block, moderate MR, type II DM, moderate RV dysfunction presenting with CABG x3 (BURGESS to LAD, left radial to OM, SVG to PDA). Electrophysiology has been consulted for bradycardia. Patient underwent CABG x3 on 07/24. Procedure complicated by RV dysfunction requiring epi, inhaled veletri. These have since been weaned off. Patient has intermittently been hypotensive with response to LR bolus and low dose pressors. EKG prior to CABG procedure shows bradycardia, multiple PACs, andMobitz 1. Patient is currently epicardially paced on DDD at 100 bpm. Pacer weans have showed underlying bradycardia, and concern for high degree block. There is no 12 lead EKG of underlying rhythm available at this time. CTS consulting primary team for evaluation of pacemaker need. Patient alert and awake. He has no complaints at this time. Denies chest pain, shortness of breath,lightheadedness. Review of Systems: Review of systems as per HPI and, otherwise all other systems are negative. PMHX: has a past medical history of Asthma, Diabetes mellitus (HCC), GERD (gastroesophageal reflux disease), HH (hiatus hernia), Hypertension, and Sleep apnea. PSHX: has a past surgical history that includes Kidney surgery (1961); Total knee arthroplasty (Left, 2017); Total knee arthroplasty (Right, 2019); and Multiple tooth extractions. Family Hx: family history includes Cardiomyopathy in his mother. Social Hx: reports that he quit smoking about 44 years ago. His smoking use included cigarettes. Hestarted smoking about 63 years ago. He has a 29.4 pack- year smoking history. He has been exposed totobacco smoke. He has never used smokeless tobacco. He reports that he does not currently use drugs. Allergies: Allergies Allergen Reactions Tramadol Itching Home Medications: HOME MEDICATIONS : albuterol HFA (PROVENTIL HFA,VENTOLIN HFA,PROAIR HFA) 90 mcg/actuation inhaler aspirin 81 mg enteric coated tablet bumetanide (BUMEX) 1 mg tablet carboxymethylcell-glycerin,PF, 0.5-0.9 % drops carvediloL (COREG) 6.[address] (CYMBALTA) 60 mg capsule insulin aspart U-100 (NovoLOG) 100 unit/mL (3 mL) insulin pen insulin glargine (LANTUS, SEMGLEE) 100 unit/mL subcutaneous syringe omeprazole (PriLOSEC) 20 mg capsule pregabalin (LYRICA) 200 mg capsule sacubitriL-valsartan (ENTRESTO) 24-26 mg tablet ammonium lactate (AMLACTIN) 12 % cream atorvastatin (LIPITOR) 40 mg tablet ibuprofen (ADVIL,MOTRIN) 800 mg tablet metFORMIN (GLUCOPHAGE) 1,000 mg tablet MULTIVITAMIN ORAL naproxen (ALEVE) 220 mg tablet semaglutide (OZEMPIC) 1 mg/dose (4 mg/3 mL) pen injector injection Current Medications: acetaZOLAMIDE, 500 mg, intravenous, Q8H aspirin, 81 mg, oral, Daily atorvastatin, 40 mg, oral, Daily clopidogreL, 75 mg, oral, Daily DULoxetine DR, 60 mg, oral, Nightly heparin, 5,000 Units, subcutaneous, Q8H HILDA insulin glargine, 50 Units, subcutaneous, QAM insulin lispro, 0-10 Units, subcutaneous, TID with meals insulin lispro, 0-5 Units, subcutaneous, Nightly isosorbide mononitrate ER, 15 mg, oral, Daily lidocaine (PF), , , methocarbamoL, 500 mg, oral, TID pantoprazole DR, 40 mg, oral, Daily QUEtiapine, 100 mg, oral, Nightly senna, 1 tablet, oral, BID dextrose 5%, 50 mL/hr, Last Rate: 50 mL/hr (07/31/24 1500) EPINEPHrine, 0-0.05 mcg/kg/min, Last Rate: Stopped (07/31/24 0038) Lactated Ringer's, 10 mL/hr, Last Rate: Stopped (07/30/24 0213) sodium chloride 0.9%, 3-12 mL/hr, Last Rate: 9 mL/hr (07/31/24 1500) Objective Vital Signs: 24hr Min/Max: Temp Min: 37.5 ??C (99.5 ??F) Max: 37.5 ??C (99.5 ??F) Pulse Min: 90 Max: 102 Resp Min: 14 Max: 29 SpO2 Min: 85 % Max: 100 % Most Recent: Vitals: 07/31/24 1500 BP: Pulse: 92 Resp: 15 Temp: SpO2: 95% Intake/Output: Intake/Output Summary (Last 24 hours) at 07/31/2024 1538 Last data filed at 07/31/2024 1500 Gross per 24 hour Intake 1677.89 ml Output 1145 ml Net 532.89 ml Physical Exam: General appearance: no acute distress HEENT: NCAT, MMM, anicteric Lungs: CTAB, no w/r/r, non-labored Heart: Paced 90 BPM on DDD, S1, S2 normal, no murmur, rub or gallop. JVP not elevated, no LE edema.Sternotomy scar in place Abdomen: soft, NT/ND; bowel sounds normal Extremities: extremities normal, warm and well-perfused, equal pulses Skin: warm and dry Neurologic: No abnormal movements, non-focal exam Psych: Normal mood and affect Lab/Radiology/Diagnostic Review: Labs: Recent Labs Lab Units 07/30/24 2339 07/30/24 0101 07/29/24 0031 07/28/24 0003 07/27/24 0003 HEMOGLOBIN g/dL 7.3* 7.6* 7.7* 8.1* 8.1* HEMATOCRIT % 23.5* 24.4* 24.0* 25.5* 25.5* WBC K/cumm 4.0 3.8 4.2 8.6 11.2* PLATELETS K/cumm 91* 72* 67* 75* 62* Recent Labs Lab Units 07/30/24 2339 07/30/24 1213 07/30/24 0101 07/29/24 0031 07/28/24 0003 07/27/24 0003 SODIUM mmol/L 148* < > 150* 147* 145 138 POTASSIUM PLASMA mmol/L 3.3 < > 3.6 3.8 3.9 4.4 CHLORIDE mmol/L 109 < > 107 105 105 103 CO2 mmol/L 30 < > 34* 31 30 26 ANIONGAP mmol/L 9 < > 9 11 10 9 BUN SERUM mg/dL 56* < > 56* 55* 47* 38* CREATININE mg/dL 1.20 < > 1.39* 1.23 1.12 1.08 CALCIUM mg/dL 8.5 < > 9.2 8.9 8.8 8.6 MAGNESIUM mg/dL 2.1 -- 2.0 1.9 1.8 1.9 < > = values in this interval not displayed. Recent Labs Lab Units 07/24/24 1621 APTT sec 34 INR 1.44* Recent Labs Lab Units 07/31/24 0422 07/30/24 2339 07/30/24 0748 PH ART 7.44 7.44 7.46* PCO2 ART mmHg 39 38 42 PO2 ART mmHg 114* 114* 148* BASE EXC ART mmol/L 2 2 5 Cultures: No results found for: MICROBIOLOGY I personally reviewed the Telemetry images with the following findings: Possible high degree block. Otherwise epicardially paced. I personally reviewed the ECG images with the following findings: Sinus bradycardia with PACs and PVCs, Mobitz I block. TTE: 06/19/24 TTE (in media) Assessment/Plan Abiel Fink is a 74 y.o. male with a history of hypertension, hyperlipidemia, CAD, 2nd degree AV block, moderate MR, type II DM, moderate RV dysfunction presenting with CABG x3 (BURGESS to LAD, left radial to OM, SVG to PDA). Electrophysiology has been consulted for bradycardia. Problem List #Bradycardia #CAD s/p CABG x3 Patient presenting to hospital for CABG x3. Noted to have bradycardia with reduction in epicardial pacing. He is currently supported with DDD pacing mode. His pre-op ECG shows Mobitz I rhythm with PVCs and PACs and a rate of 46. There are infrequent tracings on telemetry concerning for high degree block, however an ECG of his underlying rhythm will help delineate his need for pacemaker. Recommendations: - Please obtain EKG of his underlying rhythm - Consideration for device pending above - Continue DDD pacing per primary team No new Assessment & Plan notes have been filed under this hospital service since the last note was generated. Service: Cardiology, Electrophysiology Thank you for allowing us to contribute to this patient's care, we will continue to follow. Leonor Duncan MD Media Sales Executive 3:38 PM 07/31/24 Cosigned by Blu Peacock MD at 08/01/2024 10:54 PM CDT * Amber Rose PA - 07/24/2024 3:22 PM CDTAssociated Order(s): Critical Care CT ICU History and Physical Team: 8200 2 AM Subjective: Patient is a 74 y.o. male presented to the ICU with chief complaint of coronary artery disease. HPI: Mr Fink is a 74 y.o. [...] RCA subtotal occlusion. He was referred to [facility] for surgical management. On 07/24, patient presents to the ICU s/p CABG x 3 (BURGESS to LAD, left radial to OM, SVG to PDA. Patient did have significant radial artery spasm, treated with papaverine and nitroglycerin. Prior to the case, patient with known RV dysfunction. During EMILE, RV function improved with MAPs in the 80s, solevophed continued. OR totals: 1L crystalloid, 1 unit PRBC, 1 unit FFP, 1 unit PLT. A and V wires placed. mCT x 2 and bilateral chest tubes. He arrives hemodynamically supported on levophed at 0.08 mcg/kg/min and GROVE SUPERINTENDENT at 5 mcg/kg/min. He remains on nitroglycerin for radial artery spasm. He is orallyintubated on full mechanical support and reported to be an easy airway. Past Medical History: Diagnosis Date Asthma Diabetes mellitus (HCC) GERD (gastroesophageal reflux disease) HH (hiatus hernia) Hypertension Sleep apnea pt uses CPAP machine nightly Past Surgical History: Procedure Laterality Date KIDNEY SURGERY 1960 MULTIPLE TOOTH EXTRACTIONS TOTAL KNEE ARTHROPLASTY Left 2017 TOTAL KNEE ARTHROPLASTY Right 2019 Allergies Allergen Reactions Tramadol Itching Social History Tobacco Use Smoking status: Former Current packs/day: 0.00 Average packs/day: 1.5 packs/day for 19.6 years (29.4 ttl pk-yrs) Types: Cigarettes Start date: 1960 Quit date: 06/11/1980 Years since quittin.1 Passive exposure: Past Smokeless tobacco: Never Substance [...] Pseudochol deficiency Neg Hx Review of Systems: Review of Systems Unable to perform ROS: Intubated Vitals: Vitals: 07/24/24 1625 BP: Pulse: 90 Resp: Temp: SpO2: 97% Hemodynamics: MAP (mmHg): [73-130] 130 PAP: (49-56)/(25-31) 51/28 PAP (Mean): [34 mmHg-41 mmHg] 37 mmHg Pulmonary Support: O2 Therapy: Supplemental oxygen O2 Del Method: Endotracheal tube FiO2 (%): (S) 60 % Adult Vent Mode: Pressure regulated volume control/assist control/VC+ FiO2 (%): 60 % S RR: 18 PEEP/CPAP/EPAP (cm H2O): 8 cm H20 Intake/Output: Intake/Output Summary (Last 24 hours) at 07/24/2024 1656 Last data filed at 07/24/2024 1610 Gross per 24 hour Intake 2450 ml Output 570 ml Net 1880 ml Objective: Physical exam: General: intubated, sedated Neuro: sedated, plan to wean for full exam Cardiac: levo 0.08, GROVE SUPERINTENDENT 5, nitro 10; paced via AV wires 90 Pulmonary: mechanical ventilation, mCT x2, pCT x2. Midline sternotomy with dressing in place, [place] holding suction. Abdominal: round, non-distended Extremities: BLE edema R > L, venous stasis changes to BLE, palpable pulses Drains: Castro, mCT x 2, pCT x 2, castro Wounds: see RN flowsheet Access: BILLY OK + neno, right radial art line Lab/Radiology/Diagnostic Review: Laboratory review: Lab results in the last 12 hours: Recent Results (from the past 12 hour(s)) Prepare RBC: 4 Units Collection Time: 07/24/24 6:36 AM Result Value Ref Range Product code C1880R04 Unit Number [id number] Product Blood Type OPOS Dispense Status ISSUED Product code E3014M52 Unit Number [id number] Product Blood Type OPOS Dispense Status RETURNED Product code K0985M57 Unit Number [id number] Product Blood Type OPOS Dispense Status RETURNED Product code V0208T79 Unit Number [id number] Product Blood Type OPOS Dispense Status RETURNED Check Sample Collection Time: 07/24/24 6:45 AM Result Value Ref Range ABO Rh O Positive POCT glucose Collection Time: 07/24/24 6:46 AM Result Value Ref Range Glucose, POC 78 70 - 199 mg/dL POCT heparin dose response, CPB Collection Time: 07/24/24 9:19 AM Result Value Ref Range Baseline ACT POC 146 112 - 174 sec Heparin dose response slope POC 107 60 - 195 Projected Heparin Concentration POC 3.1 units/mL POC Blood Gas and Chemistries, Arterial - Collection Time: 07/24/24 9:30 AM Result Value Ref Range pH, Art POC 7.42 7.35 - 7.45 pCO2, Art POC 37 35 - 45 mmHg pO2, Art POC 112 (H) 83 - 108 mmHg Na, POC 141 135 - 145 mmol/L K POC 3.9 3.3 - 4.9 mmol/L Cl, POC 110 97 - 110 mmol/L Ionized Ca, POC 4.96 4.50 - 5.10 mg/dL Glucose, POC Incalculable 70 - 199 mg/dL Lactate, POC 1.6 0.7 - 2.2 mmol/L SO2 (aliza) arterial 100 (H) 90 - 95 % Base excess, POC -0.3 mmol/L HCO3, Art POC 24 20 - 30 mmol/L Hct, POC 33.0 (L) 41.4 - 51.6 % Total Hb, POC 11.0 (L) 13.8 - 17.2 g/dL POCT glucose Collection Time: 07/24/24 10:11 AM Result Value Ref Range Glucose, POC 73 70 - 199 mg/dL POC Blood Gas and Chemistries, Arterial - Collection Time: 07/24/24 10:59 AM Result Value Ref Range pH, Art POC 7.32 (L) 7.35 - 7.45 pCO2, Art POC 46 (H) 35 - 45 mmHg pO2, Art POC 189 (H) 83 - 108 mmHg Na, POC 141 135 - 145 mmol/L K POC 4.3 3.3 - 4.9 mmol/L Cl, POC 111 (H) 97 - 110 mmol/L Ionized Ca, POC 5.79 (H) 4.50 - 5.10 mg/dL Glucose, POC Incalculable 70 - 199 mg/dL Lactate, POC 1.2 0.7 - 2.2 mmol/L SO2 (aliza) arterial 100 (H) 90 - 95 % Base excess, POC -2.5 mmol/L HCO3, Art POC 24 20 - 30 mmol/L Hct, POC 34.0 (L) 41.4 - 51.6 % Total Hb, POC 11.3 (L) 13.8 - 17.2 g/dL POC Blood Gas and Chemistries, Arterial - Collection Time: 07/24/24 11:41 AM Result Value Ref Range pH, Art POC 7.38 7.35 - 7.45 pCO2, Art POC 35 35 - 45 mmHg pO2, Art POC 454 (H) 83 - 108 mmHg Na, POC 140 135 - 145 mmol/L K POC 4.6 3.3 - 4.9 mmol/L Cl, POC 110 97 - 110 mmol/L Ionized Ca, POC 4.32 (L) 4.50 - 5.10 mg/dL Glucose, POC Incalculable 70 - 199 mg/dL Lactate, POC 1.1 0.7 - 2.2 mmol/L SO2 (aliza) arterial 100 (H) 90 - 95 % Base excess, POC -4.0 mmol/L HCO3, Art POC 21 20 - 30 mmol/L Hct, POC 26.0 (L) 41.4 - 51.6 % Total Hb, POC 8.8 (L) 13.8 - 17.2 g/dL POCT heparin/ACT CPB Collection Time: 07/24/24 11:42 AM Result Value Ref Range Heparin POC 3.4 units/mL ACT, CPB 758 (H) 112 - 174 sec POCT heparin/ACT CPB Collection Time: 07/24/24 12:14 PM Result Value Ref Range Heparin POC 4.1 units/mL ACT, CPB 678 (H) 112 - 174 sec POC Blood Gas and Chemistries, Arterial - Collection Time: 07/24/24 12:15 PM Result Value Ref Range pH, Art POC 7.41 7.35 - 7.45 pCO2, Art POC 39 35 - 45 mmHg pO2, Art POC 314 (H) 83 - 108 mmHg Na, POC 141 135 - 145 mmol/L K POC 4.5 3.3 - 4.9 mmol/L Cl, POC 112 (H) 97 - 110 mmol/L Ionized Ca, POC 4.43 (L) 4.50 - 5.10 mg/dL Glucose, POC Incalculable 70 - 199 mg/dL Lactate, POC 1.2 0.7 - 2.2 mmol/L SO2 (aliza) arterial 99 (H) 90 - 95 % Base excess, POC 0.1 mmol/L HCO3, Art POC 25 20 - 30 mmol/L Hct, POC 24.0 (L) 41.4 - 51.6 % Total Hb, POC 7.9 (L) 13.8 - 17.2 g/dL Prepare plasma: 2 Units Collection Time: 07/24/24 12:45 PM Result Value Ref Range Product code [id number] Unit Number [id number] Product Blood Type BPOS Dispense Status ISSUED POC Blood Gas and Chemistries, Arterial - Collection Time: 07/24/24 12:52 PM Result Value Ref Range pH, Art POC 7.40 7.35 - 7.45 pCO2, Art POC 39 35 - 45 mmHg pO2, Art POC 312 (H) 83 - 108 mmHg Na, POC 140 135 - 145 mmol/L K POC 4.9 3.3 - 4.9 mmol/L Cl, POC 112 (H) 97 - 110 mmol/L Ionized Ca, POC 4.47 (L) 4.50 - 5.10 mg/dL Glucose, POC Incalculable 70 - 199 mg/dL Lactate, POC 1.5 0.7 - 2.2 mmol/L SO2 (aliza) arterial 99 (H) 90 - 95 % Base excess, POC -0.5 mmol/L HCO3, Art POC 24 20 - 30 mmol/L Hct, POC 25.0 (L) 41.4 - 51.6 % Total Hb, POC 8.3 (L) 13.8 - 17.2 g/dL POCT heparin/ACT CPB Collection Time: 07/24/24 12:53 PM Result Value Ref Range Heparin POC 3.4 units/mL ACT, CPB 553 (H) 112 - 174 sec POCT glucose Collection Time: 07/24/24 12:54 PM Result Value Ref Range Glucose, POC 87 70 - 199 mg/dL POC Blood Gas and Chemistries, Arterial - Collection Time: 07/24/24 1:18 PM Result Value Ref Range pH, Art POC 7.39 7.35 - 7.45 pCO2, Art POC 39 35 - 45 mmHg pO2, Art POC 278 (H) 83 - 108 mmHg Na, POC 141 135 - 145 mmol/L K POC 5.1 (H) 3.3 - 4.9 mmol/L Cl, POC 111 (H) 97 - 110 mmol/L Ionized Ca, POC 4.66 4.50 - 5.10 mg/dL Glucose, POC Incalculable 70 - 199 mg/dL Lactate, POC 1.7 0.7 - 2.2 mmol/L SO2 (aliza) arterial 99 (H) 90 - 95 % Base excess, POC -1.2 mmol/L HCO3, Art POC 24 20 - 30 mmol/L Hct, POC 26.0 (L) 41.4 - 51.6 % Total Hb, POC 8.6 (L) 13.8 - 17.2 g/dL POCT glucose Collection Time: 07/24/24 2:13 PM Result Value Ref Range Glucose, POC 113 70 - 199 mg/dL POC Blood Gas and Chemistries, Arterial - Collection Time: 07/24/24 2:14 PM Result Value Ref Range pH, Art POC 7.35 7.35 - 7.45 pCO2, Art POC 41 35 - 45 mmHg pO2, Art POC 92 83 - 108 mmHg Na, POC 140 135 - 145 mmol/L K POC 4.7 3.3 - 4.9 mmol/L Cl, POC 112 (H) 97 - 110 mmol/L Ionized Ca, POC 5.94 (H) 4.50 - 5.10 mg/dL Glucose, POC Incalculable 70 - 199 mg/dL Lactate, POC 2.7 (H) 0.7 - 2.2 mmol/L SO2 (aliza) arterial 99 (H) 90 - 95 % Base excess, POC -2.8 mmol/L HCO3, Art POC 23 20 - 30 mmol/L Hct, POC 26.0 (L) 41.4 - 51.6 % Total Hb, POC 8.8 (L) 13.8 - 17.2 g/dL POCT hemoglobin, hematocrit and platelet count Collection Time: 07/24/24 2:15 PM Result Value Ref Range Hgb, POC 8.4 (L) 13.0 - 17.5 g/dL Hematocrit POC 25.4 (L) 38.9 - 50.3 % Platelet POC 55 (L) 150 - 400 K/cumm POCT prothrombin time Collection Time: 07/24/24 2:17 PM Result Value Ref Range PT, POC 34.3 (H) 11.7 - 16.6 sec INR, POC 2.6 (H) 0.9 - 1.3 POCT Partial thromboplastin time (PTT) Collection Time: 07/24/24 2:17 PM Result Value Ref Range APTT, POC 34.7 32.5 - 46.1 sec Prepare platelets: 1 Units Collection Time: 07/24/24 2:24 PM Result Value Ref Range Product code [id number] Unit Number [id number] Product Blood Type OPOS Dispense Status ISSUED POC Blood Gas and Chemistries, Arterial - Collection Time: 07/24/24 4:14 PM Result Value Ref Range pH, Art POC 7.35 7.35 - 7.45 pCO2, Art POC 41 35 - 45 mmHg pO2, Art POC 224 (H) 83 - 108 mmHg Na, POC 140 135 - 145 mmol/L K POC 4.8 3.3 - 4.9 mmol/L Cl, POC 112 (H) 97 - 110 mmol/L Ionized Ca, POC 4.95 4.50 - 5.10 mg/dL Glucose, POC 139 70 - 199 mg/dL Lactate, POC 2.3 (H) 0.7 - 2.2 mmol/L SO2 (aliza) arterial 100 (H) 90 - 95 % Base excess, POC -2.8 mmol/L HCO3, Art POC 23 20 - 30 mmol/L Hct, POC 29.0 (L) 41.4 - 51.6 % Total Hb, POC 9.5 (L) 13.8 - 17.2 g/dL CBC without differential Collection Time: 07/24/24 4:21 PM Result Value Ref Range WBC 6.1 3.8 - 9.9 K/cumm Hgb 9.1 (L) 13.0 - 17.5 g/dL Hct 27.8 (L) 38.9 - 50.3 % Plt 79 (L) 150 - 400 K/cumm MPV 10.1 9.1 - 12.3 fL RBC 3.34 (L) 4.30 - 5.80 M/cumm MCV 83.2 81.3 - 96.4 fL MCH 27.2 27.1 - 33.3 pg MCHC 32.7 32.3 - 35.7 g/dL RDW CV 15.5 (H) 11.1 - 14.9 % RDW SD 47.1 35.7 - 48.1 fL NRBC abs 0.00 0.00 - 0.01 K/cumm Oxyhemoglobin, pulmonary artery Collection Time: 07/24/24 4:24 PM Result Value Ref Range Oxyhemoglobin, PA 78.0 % No results found. Assessment and Plan of Care: NEUROLOGICAL: #Acute on Chronic Pain - hold home pregabalin and robaxin in acute setting - PRN fentanyl pushes for pain goal < 4/10 - PT, OT #Agitation requiring sedation secondary to intubation - propofol infusion for RASS goal 0 to -2 with daily spontaneous awakening/breathing trials #ICA stenosis, chronic - Left ICA stenosis <50%. Right ICA stenosis 50-69%. - aspirin and statin as below #mood, chronic - hold home duloxetine 60 mg daily in acute phase CARDIOVASCULAR: #CAD, chronic #Cardiogenic shock #RV dysfunction #Elevated Lactate Level - 07/24: s/p CABG x 3 (BURGESS to LAD, left radial to OM, SVG to PDA - continue levophed for MAP > 80 - continue GROVE SUPERINTENDENT for CI 2.2-4 L/min/m2 - continue nitroglycerin at 10 mcg/min for radial artery spasm - start aspirin tonight - start plavix tomorrow 07/25 - monitor mediastinal and bilateral pleural CT output - CINTIA to right leg, monitor output #HTN, chronic #HLD, chronic - home regimen: bumex 0.5 mg PRN, carvedilol 3.125 mg BID PULMONARY: #intubation for procedure with expected extubation - intubated for OR - SAT/SBT as able - maintain SpO2 > 92% - continue home PRN albuterol GASTROINTESTINAL: Nutrition: NPO Bowel regimen: docusate, senna, miralax PUD ppx: PPI #GERD, chronic - continue home PPI (omeprazole not on formulary) ENDOCRINE: #IDDM, chronic - Hgb A1c 7.5 - home regimen: glargine 90 units, novolog 6 units AC, metformin, semaglutide - ICU HDSSI RENAL: No results found for: [id number] , [id number] , CREATININE - Castro in place for strict I&O - trend BMP - replace electrolytes as indicated HEMATOLOGY: #Acute Blood Loss Anemia, secondary to procedure - intraoperatively received: 1 unit pRBC, 1 unit PLT, 1 unit FFP - trend CBC daily - DVT ppx: SCD, hold DVT ppx ID: #Leukocytosis - trend white count and fever curve - continue vancomycin and ancef x 24 hrs Intensive Care Unit Standards of Care: Restraints: mittens DVT prophylaxis: SCD Vascular access: RIJ QLC+SWAN, right radial arterial line Nutrition: NPO Goals of care: full code Patient's assessment and plan discussed with ICU attending and fellow physicians. Amber Rose PA-C Critical Care Performed by: Amber Rose PA Authorized by: Amber Rose PA CRITICAL CARE: Team: 83 CTICU Shift: AM Level of Billing: Critical Care My time spent with this patient was 90 minutes: Critical Provider Statement: I have seen and examined the patient on this day of service. I have reviewed and confirmed the history, physical exam, laboratory and radiologic data as documented in thesigned ICU note. I have reviewed and discussed my treatment plan with the ICU team and other medical/systems consultant staff, making frequent assessments and decisions regarding this patient's complex medical care. Critical Care time was exclusive of time spent performing separately billed procedures, treating other patients, and teaching. This time was in addition to and separate from critical care provided by other practitioners in my group on this day of service. Critical Care was necessary to treat or prevent imminent or life-threatening deterioration of the following conditions: I spent time reviewing and interpreting data from bedside monitors, laboratory results, and imaging, I spent time discussing the management of this critically ill patient with consultants and the medical staff and I spent time documenting in the medical record Cosigned by Feng Sinclair MD at 07/30/2024 12:45 PM CDT * Leonor Quan MD - 07/24/2024 7:37 AM CDT I have reviewed the H&P, examined the patient, and endorse the findings as written. Plan of Care : Based on the above findings, I consider Abiel Fink to be an acceptable risk for : Procedure(s): CORONARY ARTERY BYPASS GRAFT WITH PUMP ENDOSCOPIC VESSEL HARVEST - BURGESS VEIN Patient well known to me from [facility]. CABGx3, BURGESS, left radial, saphenous vein. Moderate EF (40%). Dereje's test good by exam and with the pulse oximeter. Plating because he walks with a cane. Leonor Quan MD Source Note - Shantal Sánchez NP - 07/14/2024 10:53 AM CDT Images from the original note were not included. 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 male CORONARY ARTERY BYPASS GRAFT WITH PUMP (Chest) ENDOSCOPIC VESSEL HARVEST - BURGESS VEIN (Left: Thigh) Pre-Op Diagnosis Codes: * CAD, 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] HISTORY HPI Abiel Fink is a 74 y.o. male with PMH HTN, HLD, CAD, CHF (EF 45-50%), asthma, JACQUELINE, IDDM andGERD who is being evaluated prior to undergoing CABG with pump and endoscopic vessel harvest (BURGESS Vein) for CAD. Past Medical History Information obtained from: patient and chart. Information obtained during: In Person Neurological + ICA stenosis - left internal carotid artery and right internal carotid artery. Left ICA stenosis <50%. Right ICA stenosis 50-69%. Pertinent negatives: seizures; neuromuscular disease; CVA/stroke; TIA; CEA; dementia/mild cognitiveimpairment; psychiatric history and carotid artery stent Cardiovascular + Hypertension Hypertension year diagnosed: 2003. Typical systolic BP - 125 + Hyperlipidemia + CAD - Angina class: no angina + CHF - NYHA class: III. CHF Etiology: ischemic. Diastolic function: unspecified dysfunction LVEF: 40-50%. + Current valvular disease - MR - mild-moderate; + Other arrhythmia (LAFB) - 2nd degree AV block and RBBB. Pertinent negatives: UT ; CABG ; systolic/diastolic dysfunction w/o CHF ; valve replacement; atrialfibrillation; pacemaker/ICD; PVD; DVT/PE; drug-eluting stent(s); bare metal stent(s); unknown stent(s) type and coronary angioplasty Respiratory + Asthma (last inhaler use 1 week ago) Dyspnea frequency: throughout the day. Rescue inhaler use: 2days/week or less. Hospitalizations/ER in the last year: 0. FEV1 % predicted: 84%. + Sleep apnea (JACQUELINE) Prescribed device: PAP compliant and CPAP. + Pulmonary hypertension Echo PA systolic: 41. RV function: mild systolic dysfunction. Pertinent negatives: COPD; no O2 use outside the hospital; no history of oral steroid use; no priorintubation for respiratory failure due to asthma; non- smoker (former smoker) and no tracheostomy Hepatic / Heme + Liver disease (liver steatosis) - other. + History of thrombocytopenia (07/20 plt 87) Pertinent negatives: history of anemia and history of Janell positive Gastrointestinal + GERD - on daily therapy. Asymptomatic. + Hiatal hernia Renal / Pertinent negatives: renal disease; dialysis and nephrolithiasis Musculoskeletal/Pain Pertinent negatives: chronic pain Musculoskeletal/Pain system: negative Endocrine / Other + Diabetes mellitus (CGM) - Diabetes type 2. Diagnosed: 2003. Diabetic complications: neuropathy. Outpatient insulin use: current. Pt reported low glucose range is 130. Pt reported high glucose range is 175. Pt reported HgA1c: 7.5. Pt reported HgA1c date: 07/14/24. + Obesity (BMI >30) Pertinent negatives: thyroid disease; cancer history; rheumatological disease; transplanted organ; infectious disease; eye disorder and pancreatitis Functional Capacity Functional capacity: ambulates with assistance only and <4 METs Comments: Cane for ambulation. Stopped 4 times walking from parking garage to clinic due to leg pain and SOB. SOB ongoing for 5 years. Review of Systems + SOB (ongoing, stable x5 years) + wheezing (1 episode last week; resolved with albuterol use) + orthopnea (recliner; sleeps 3-4 pillows for a few years) + pedal edema (chronic, stable - diuretic PRN) + easy bruising (2/2 aspirin) + numbness/tingling (BLE, fingers 2/2 to neuropathy) + vision loss (glasses) + dentures/partials (implants placed 2 weeks ago for dentures) Pertinent negatives: productive cough; recent cold/flu; fever; chest pain; palpitations; PND; Sickle Cell disease/trait; previous transfusion; melena/hematochezia; bleeding problems; syncope; dizziness; muscle weakness; chronic pain; hard of hearing; heartburn; nausea; dysphagia; diarrhea; chipped/l oose teeth; abdominal pain; diaphoresis and no unexpected weight change Comments: +Denies S&S of UTI. +Able to lie flat for exam without visible distress. +Currently completing course of antibiotics following dental metal implantation for future dentures. PAT Summary and Plans Cardiac risk classification of planned procedure: cardiac surgery. Preoperative assessment status: complete. Initial preoperative evaluation discussed with: Michelle Ely MD Additional comments: Abiel Fink is a 74 y.o. male who is being evaluated prior to undergoing a low cardiac risk surgery. Revised Cardiac Risk Index factors are (history of CHF and insulin therapy for diabetes) for a total RCRI of 2 out of 6. Functional capacity is ambulates with assistance only. Obstructive sleep apnea (JACQUELINE) screening status is HIGH RISK due to known JACQUELINE. DOS JACQUELINE orders placed. Blood bank needs for day of procedure: T&C 4 unit pRBCs Pending labs/tests include: CBC CMP T&S PT CPAP PTT Urinalysis flex CXR DOS glucose The patient is on aspirin therapy and is scheduled for cardiac/vascular surgery where aspirin is routinely continued for periprocedural benefit. Preoperative evaluation performed by Shantal Sánchez NP on 07/14/24 at 11:31 AM. . Follow up note PT/INR, aPTT, and CBC clotted. Reviewed CBC and PT/INR in 06/2024 at the [facility] without acute concern. H/H 13.3/1.2, PLT 107 (chronic), and PT/INR 13.3/1.2. Prior aPTT unavailable. D/w patient who [facility], aPTT, CBC. Fax sent to PCP (Dr. Retana) to request entering labs at the [facility]. Will notify the surgery team if aPTT is prolonged. Awaiting PCP response. Awaiting T&S, CMP, UA flex, Chest Xray. Follow-up completed by: Reji Sotelo NP on 07/14/24 at 3:37 PM Discussed with: Michelle Ely MD Follow up note [facility] PT/INR, aPTT, CBC. Called and spoke with patient and he stated that he hadthis done on 07/17/24 will attempt to retrieve Reviewed CXR from 07/14/24 was reviewed and w/o any significant findings. Please see results below for further information. Follow-up completed by: Analilia Scott NP on 07/18/24 at 10:46 AM Follow up note 07/20/24 Labs at the [facility] (in [place] - overview documents summary): WBC: 4.7 Hgb: 12.9 Hct: 39.8 Plt: 87 PTT 32.1, PT 14.4, INR 1.3 Discussed with CPAP Attending. No further testing indicated. CPAP assessment complete. Follow-up completed by: Shantal Sánchez NP on 07/20/24 at 2:21 PM Discussed with: Antony Noble MD Patient Active Problem List Diagnosis Date Noted CAD, multiple vessel 07/05/2024 Senile ectropion of both lower eyelids 06/11/2020 Lesion of eyelid of both eyes 06/11/2020 Past Medical History: Diagnosis Date Asthma Diabetes mellitus ([facility]) GERD (gastroesophageal reflux disease) HH (hiatus hernia) Hypertension Sleep apnea pt uses CPAP machine nightly Past Surgical History: Procedure Laterality Date KIDNEY SURGERY 1960 MULTIPLE TOOTH EXTRACTIONS TOTAL KNEE ARTHROPLASTY Left 2017 TOTAL KNEE ARTHROPLASTY Right 2019 Allergies Allergen Reactions Tramadol Itching Taking? Last Dose Start Date End Date Provider albuterol HFA (PROVENTIL HFA,VENTOLIN HFA,PROAIR HFA) 90 mcg/actuation inhaler Past Week -- -- ProviderNasir MD ammonium lactate (AMLACTIN) 12 % cream -- 02/11/24 -- Nasir Nagel MD atorvastatin (Lipitor) 10 mg tablet -- -- -- Nasir Nagel MD atorvastatin (LIPITOR) 40 mg tablet -- 06/07/24 -- Nasir Nagel MD bumetanide (BUMEX) 1 mg tablet -- 06/07/24 -- Nasir Nagel MD carboxymethylcell-glycerin,PF, 0.5-0.9 % drops -- 05/12/24 -- Nasir Nagel MD chlorhexidine (PERIDEX) 0.12 % solution -- 07/19/24 07/24/24 Leonor Quan MD Apply 15 mL to the mouth or throat 3 (three) times a day for 5 days Swish and rinse for at least 30seconds . Do not rinse or drink for 1-2 hours after use. dexAMETHasone (DECADRON) 4 mg tablet -- 07/04/24 -- Nasir Nagel MD DULoxetine DR (CYMBALTA) 60 mg capsule 07/14/2024 -- -- Nasir Nagel MD ibuprofen (ADVIL,MOTRIN) 800 mg tablet -- 07/04/24 -- Nasir Nagel MD insulin aspart U-100 (NovoLOG) 100 unit/mL (3 mL) insulin pen 07/13/2024 -- -- Nasir Nagel MD insulin glargine (LANTUS) 100 unit/mL injection -- -- -- Nasir Nagel MD lisinopriL (PRINIVIL,ZESTRIL) 20 mg tablet -- -- -- Nasir Nagel MD metFORMIN (GLUCOPHAGE) 1,000 mg tablet 07/14/2024 -- -- Nasir Nagel MD mupirocin (BACTROBAN) 2 % ointment -- 07/19/24 07/24/24 Leonor Quan MD Apply to each nostril 2 (two) times a day for 5 days Patient taking differently: Apply 1 Application to each nostril 2 (two) times a day naproxen (ALEVE) 220 mg tablet -- 07/02/23 -- Nasir Nagel MD omeprazole (PriLOSEC) 20 mg capsule 07/14/2024 -- -- Nasir Nagel MD pregabalin (LYRICA) 200 mg capsule 07/14/2024 -- -- Nasir Nagel MD semaglutide (OZEMPIC) 1 mg/dose (4 mg/3 mL) pen injector injection -- 05/01/24 -- Nasir Nagel MD Current Outpatient Medications: albuterol HFA (PROVENTIL HFA,VENTOLIN HFA,PROAIR HFA) 90 mcg/actuation inhaler ammonium lactate (AMLACTIN) 12 % cream atorvastatin (LIPITOR) 40 mg tablet bumetanide (BUMEX) 1 mg tablet carboxymethylcell-glycerin,PF, 0.5-0.9 % drops [START ON 07/19/2024] chlorhexidine (PERIDEX) 0.12 % solution dexAMETHasone (DECADRON) [address] (CYMBALTA) 60 mg capsule ibuprofen (ADVIL,MOTRIN) 800 mg tablet insulin aspart U-100 (NovoLOG) 100 unit/mL (3 mL) insulin pen metFORMIN (GLUCOPHAGE) 1,000 mg tablet [START ON 07/19/2024] mupirocin (BACTROBAN) 2 % ointment naproxen (ALEVE) 220 mg tablet omeprazole (PriLOSEC) 20 mg capsule pregabalin (LYRICA) 200 mg capsule semaglutide (OZEMPIC) 1 mg/dose (4 mg/3 mL) pen injector injection atorvastatin (Lipitor) 10 mg tablet insulin glargine (LANTUS) 100 unit/mL injection lisinopriL (PRINIVIL,ZESTRIL) 20 mg tablet Social History Tobacco Use Smoking Status Former Current packs/day: 0.00 Types: Cigarettes Start date: 1958 Quit date: 06/11/1980 Years since quittin.1 Smokeless Tobacco Never Alcohol Use: Not on file Substance and Sexual Activity Drug Use Not Currently Family History Problem Relation Age of Onset Cardiomyopathy Mother Anesthesia problems Neg Hx PAT Physical Exam Airway Exam: Mallampati: III Cervical ROM: FROM TM distance: 2 Upper lip bite test class: 1 Cardiovascular Exam: Rate: bradycardia Rhythm: regular Murmur: grade III/ and holosystolic murmur No extra heart sounds appreciated Peripheral edema: trace edema Pulmonary Exam: LCTA, bilat EENT Exam: trachea midline Dental Exam: Edentulous Skin Exam: Skin is warm. Capillary refill is < 3 seconds. Turgor is normal. Abdominal exam: Abdomen is soft. Bowel sounds are present. Current state: Patient's current state is cooperative and interactive. Vitals: 07/14/24 1103 BP: 120/55 Comment: CGM on RUE, No bp Pulse: 73 Resp: 22 SpO2: 99% Relevant diagnostics: ECG(s): 07/14/24 46 BPM; RBBB, LAFB Echocardiogram(s): 06/29/24 EMILE (in media) 06/19/24 TTE (in media) Compared to 05/07/21. Stress test(s): N/A Cardiac catheterization(s): 06/19/24 (in media) PFT(s): 02/10/24 Vascular studies: 06/20/24 Carotid US Other: 07/14/24 CXR IMPRESSION: There are no prior chest radiographs for comparison. No pulmonary consolidation. No pleural effusion. No pneumothorax. Mild cardiomegaly. Mild pulmonary edema. PT: No results found for requested labs within last 30 days. INR: No results found for requested labs within last 30 days. APTT: No results found for requested labs within last 30 days. Hgb A1C: No results found for requested labs within last 30 days. CBC RBC: No results found for requested labs within last 30 days. RDW: No results found for requested labs within last 30 days. MCHC: No results found for requested labs within last 30 days. MCH: No results found for requested labs within last 30 days. MCV: No results found for requested labs within last 30 days. Hct: No results found for requested labs within last 30 days. Hgb: No results found for requested labs within last 30 days. WBC: No results found for requested labs within last 30 days. MPV: No results found for requested labs within last 30 days. Platelets: No results found for requested labs within last 30 days. RDW CV: No results found for requested labs within last 30 days. RDW Sd: No results found for requested labs within last 30 days. BMP Glucose: No results found for requested labs within last 30 days. Calcium: No results found for requested labs within last 30 days. Sodium: No results found for requested labs within last 30 days. Potassium: No results found for requested labs within last 30 days. CO2: No results found for requested labs within last 30 days. Chloride: No results found for requested labs within last 30 days. BUN: No results found for requested labs within last 30 days. Creatinine: No results found for requested labs within last 30 days. documented in this encounter Procedure Notes * Mayi Richardson NP - 08/05/2024 2:21 PM CDT Procedures EPICARDIAL WIRE REMOVAL 08/05/2024 2:21 PM Performed by: JUSTYN Nye identified by checking arm-band and verifying birthdate. Epicardial wire removal location completed: [x] At bedside [] in treatment room Removed due to: [x] End of treatment [] Partial dislodgement Dicussed with: [] Collaborating MD/Designee [x] Attending MD [] Supervising Physician [] Emergent [] Non-Applicable Pre-removal site assessment reveals [x] no drainage [x] no hematoma [] other [x] No bleeding Procedure Details Patient positioned [x] supine with head of bed elevated [] supine with head of bed flat [] sitting in chair Wires Removed: [x] Atrial x 2 [x] Ventricular x 1 [] Atrial x 1 [] Ventricular x 2 [] Grounding x 1 [] Grounding x 2 Wire(s) removed from [x] substernal location [] below right thoracotomy incision Post-Procedure Details Post removal care includes [x] site left open to air [] non-occlusive dressing applied [x] positioned supine [] Head of bed left flat [x] RN notified of post removal care Instructions to patient include: [x] Head of bed may be elevated, but remain in bed for 2 hours [] Remain in chair for 2 hours [x] Vital signs checked every 1/2 hr x 2 hrs [x] Report any symptoms of dizziness [x] Patient verbalizes understanding of instructions [] Family verbalizes understanding of instructions [] Patient ventilated - non-verbally indicated understanding [] Patient unable to respond Abiel Fink tolerated procedure well. Cosigned by Leonor Quan MD at 08/06/2024 8:13 AM CDT * Leonor Quan MD - 07/31/2024 12:52 PM CDTAssociated Order(s): Pulmonary Artery Catheter Removal Post-Procedure Diagnose(s): Other mechanical complication of infusion catheter, initial encounter (HCC) Pulmonary Artery Catheter Removal Date/Time: 07/31/2024 12:53 PM Performed by: Leonor Quan MD Authorized by: Leonor Quan MD [place] Protocol: RN Notified of Procedure: yes Informed consent: Risks, benefits, alternatives discussed and patient/solar sales representative and assessor/guardian agrees and accepts Patient's stated name/ matches armband: Yes Allergies confirmed: yes Imaging: Pertinent imaging reviewed, correctly oriented and match to patient identifiers Supplies, devices and special equipment are available: yes Site/side marked: yes Immediately prior to the procedure a time out was called: a verbal verification by the procedure participants confirmed correct patient identity, correct site/side marked and visible (if applicable);agreement on procedure to be done; and correct patient positioning Anesthesia (see MAR for exact dosage) Anesthesia method: Local infiltration Local anesthetic: Lidocaine 1% Hand hygiene performed: Yes PPE (including eye protection) in place as appropriate to the procedure: Yes Preparation: Patient was prepped using appropriate disinfectant and draped using sterile technique as needed Procedure details: Percutaneous removal of knotted pulmonary artery catheter at bedside using the Osgood technique (Intensive Care Medicine, 1995). The patient was placed in gentle Trendelenburg position. The dressing was removed. The skin around the catheter was prepped with chlorhexidine, as was the catheter. 10 mL 1% lidocaine was infiltrated. The catheter was withdrawn into the sheath in the usual fashion without resistance until, at 8 cm, resistance was met. The catheter was pulled harder against the sheath to tighten the knot. It took some widening of the tract with the #11 blade and gentle dilation, but eventually it pulled out intact. A [id number] 2-0 Prolene suture was used to close the tract.There was no bleeding. Patient tolerance: Patient tolerated the procedure well with no immediate complications Post Procedure Debrief: All guidewires, needles, sponges or other items are accounted for: yes Any special post procedure monitoring, testing or other considerations: n/a All specimens identified, labeled and matched to patient identification: n/a Responsible alliance party for transporting specimen(s) to lab determined: n/a I was present for the entire procedure. Leonor Quan MD * Erin Zaragoza, AIR CARGO SPECIALIST SUPERVISOR - 07/31/2024 8:56 AM CDTAssociated Order(s): AIR CARGO SPECIALIST SUPERVISOR EVALUATE AND TREAT Speech-Language Pathology: Clinical Bedside Swallow HPI/PMH 74 y.o. yo male w/ PMHx of HTN, HLD, CAD, moderate MR, 2nd degree av block, asthma, JACQUELINE, pHTN, hepatic steatosis, GERD, hiatal hernia, DM Type II (Hgb A1c7.5), hx of pituitary adenoma, and obesity. Patient with worsening shortness of breath and functional status. [facility]. 07/24: CABG x 3 (BURGESS to LAD, left radial to OM, SVG to PDA and sternal plating. Patient did have significant radial artery spasm, treated with papaverine and nitroglycerin. Prior to the case, patientwith known RV dysfunction. During EMILE, RV function improved with MAPs in the 80s, so levophed continued. OR totals: 1L crystalloid, 1 unit PRBC, 1 unit FFP, 1 unit PLT. A and V wires placed. MCT x 2 and bilateral chest tubes. Changed from GROVE SUPERINTENDENT to Epi. 07/25: Inhaled Veletri added for worsening RV dysfunction. Passed [place] swallow screen 07/26: Unable to wean Veletri d/t increasing PA pressures 07/27: Veletri wean, epi at 0.05 07/28: Veletri weaned off Respiratory/Intubation Status: intubated 07/24, now RA Imaging: CXR (07/28)- Mild bibasilar atelectasis is similar to the prior study. Left lateral basilarhaziness may be due to the atelectasis or small pleural effusion. No pulmonary edema, consolidation, or pneumothorax. Precautions: fall PLOF: Pt reported he prefers softer foods (like pasta) at baseline 2/2 edentulous and doesn't have dentures. No prior dysphagia. Self feeding. Current Diet Order: NPO pending AIR CARGO SPECIALIST SUPERVISOR re-evaluation General Information Abiel Fink 07/31/24 General Observations: Pt alert, conversational throughout evaluation. Following commands without difficulty. Pain Score: 0 - No pain If pain >4, was RN notified? N/A Patient Stated Goal/Comments: Pt asking for water and diet soda to drink. Clinical Impression & Professional Recommendations Diet Solids Recommendation: Mechanical soft (2/2 edentulous/no dentures. Can advance to regular diet and have pt select softer food choices as tolerated.) Diet Liquids Recommendations: Thin/regular Recommended Form of Medications: As tolerated (Pt reported he takes pills whole with sips of liquid.) Compensatory Strategies/Modifications: Slow rate, Small bites, Other (Comment) (take breaks if getting SOB when eating) Assistance with feeding/swallowing: Intermittent supervision Dysphagia Diagnosis: No suspicion for oral pharyngeal dysphagia at this time. Overall Clinical Impression/Additional Information: Per comparison with initial AIR CARGO SPECIALIST SUPERVISOR evaluation noteyesterday, pt's mental status significantly improved today. Alert and able to follow all verbal commands, participate in conversation. On oral mechanism exam, pt's palate appears droopy overall and hangs slightly lower on right but no other asymmetry observed, voice mildly husky, strong volitional and reflexive cough. No overt aspiration signs or pt complaints of dysphagia with ice chip, tsp water, and single/sequential drinks of water via straw, purees, hard solids. Is edentulous and said he hasn't gotten dentures yet, prefers soft foods like pasta. Mild SOB noted intermittently during mastication but pt takes breaks and RR/SpO2 remain WNL, full oral clearance/no residue after food trials.MASA score improved from 140/200 to 190/200 today. Education provided to pt on mechanical soft vs regular diet and option to advance as tolerated if needed for more food choices. Pt verbalized understanding. Assessment Details & Results Consistencies Administered: Ice chips, Thin liquids, Purees, Solids MASA: Solorzano Assessment of Swallowing Ability (MASA) Alertness: Alert Cooperation: Cooperative Auditory Comprehension: No abnormality detected Respiration: Course basal crepitation/chest physiotherapy Respiratory Rate (for swallow): Able to control breath rate for swallow Aphasia: No abnormality detected Apraxia: No abnormality detected Dysarthria: No abnormality detected Saliva: No abnormality detected Lip Seal: No abnormality detected Tongue Movement: Full range of motion Tongue Strength: No abnormality detected Tongue Coordination: No abnormality detected Gag: Hyperreflexive/no abnormality detected Palate: Slight asymmetry/mobile (hangs slightly lower on right side) Cough Reflex: No deficit noted Voluntary Cough: No abnormality detected Voice: Mild impairment/slight huskiness Trach: No trach Oral Preparation: No deficits noted Bolus Clearance: Fully cleared Oral Transit: No deficits noted Pharyngeal Phase: Immediate laryngeal elevation Pharyngeal Response: No deficits noted MASA Score: 190 Dysphagia: No dysphagia detected (178-200) Aspiration Risk: No aspiration risk (170-200) Score Interpretation: MASA score improved from 140/200 yesterday. Plan AIR CARGO SPECIALIST SUPERVISOR Frequency of Services during current admission: Discharge from this Service AIR CARGO SPECIALIST SUPERVISOR Recommendation (Add'l Services): No further AIR CARGO SPECIALIST SUPERVISOR indicated Next Visit Plan: No further AIR CARGO SPECIALIST SUPERVISOR visits planned in acute care; please re-refer if additional dysphagia concerns arise. Please reference care plan for treatment goals, if indicated. Discharge Summary Statement If this is the last swallow therapy visit, this serves as the discharge summary. * Eloise Howe, AIR CARGO SPECIALIST SUPERVISOR - 07/30/2024 2:12 PM CDT Speech-Language Pathology: Clinical Bedside Swallow HPI/PMH 74 y.o. yo male w/ PMHx of HTN, HLD, CAD, moderate MR, 2nd degree av block, asthma, JACQUELINE, pHTN, hepatic steatosis, GERD, hiatal hernia, DM Type II (Hgb A1c7.5), hx of pituitary adenoma, and obesity. Patient with worsening shortness of breath and functional status. He was [facility]. 07/24: CABG x 3 (BURGESS to LAD, left radial to OM, SVG to PDA and sternal plating. Patient did have significant radial artery spasm, treated with papaverine and nitroglycerin. Prior to the case, patientwith known RV dysfunction. During EMILE, RV function improved with MAPs in the 80s, so levophed continued. OR totals: 1L crystalloid, 1 unit PRBC, 1 unit FFP, 1 unit PLT. A and V wires placed. MCT x 2 and bilateral chest tubes. Changed from GROVE SUPERINTENDENT to Epi. 07/25: Inhaled Veletri added for worsening RV dysfunction. Passed [place] swallow screen 07/26: Unable to wean Veletri d/t increasing PA pressures 07/27: Veletri wean, epi at 0.05 07/28: Veletri weaned off Respiratory/Intubation Status: 07/24, now 2L NC Imaging: CXR (07/28)- Mild bibasilar atelectasis is similar to the prior study. Left lateral basilarhaziness may be due to the atelectasis or small pleural effusion. No pulmonary edema, consolidation, or pneumothorax. Precautions: fall Current Diet Order:regular/regular Baseline Diet: regular/regular, per pt report General Information Abiel Gomes Aleks 07/30/24 General Observations: Pt seated upright in the chair, difficult to rouse but adequate LAURA for PO trials as session progressed. RN agreeable to PO trials, reported cough x1 with meds this AM but able to take multiple meds with no further overt s/s. Pt inconsistently followed commands for oral mechanism exam (did not benefit from AIR CARGO SPECIALIST SUPERVISOR cueing), minimal verbalizations. Pain Score: 0 - No pain If pain >4, was RN notified? N/A Patient Stated Goal/Comments: to get back to bed Clinical Impression & Professional Recommendations Diet Solids Recommendation: NPO (pending re-eval with improved LAURA) Diet Liquids Recommendations: NPO for liquids, Ice chips only (with RN) Recommended Form of Medications: Non-orally (if able, otherwise crushed in puree) Compensatory Strategies/Modifications: Slow rate Postural Recommendations: Upright Assistance with feeding/swallowing: Assist with aggressive oral hygiene prior to po Specialty Instructions: none Dysphagia Diagnosis: Suspect dysphagia Overall Clinical Impression/Additional Information: Pt completed PO trials of ice chips, thin liquids via tsp/cup/straw sip, and puree. Suspect oral holding vs delayed initiation with ice chips and puree. Large immediate coughing noted with nearly all trials of thins via cup/straw sip, likely indicative of penetration/aspiration. No overt s/s with ice, thins via tsp, or puree. Assessment Details & Results Consistencies Administered: Ice chips, Thin liquids, Purees MASA: Solorzano Assessment of Swallowing Ability (MASA) Alertness: Difficult to rouse Cooperation: Cooperative Auditory Comprehension: Follows simple conversation with repetition Respiration: Sputum upper airway/other condition Respiratory Rate (for swallow): Some control/uncoordinated Aphasia: Expresses self in limited manner short phrases/words Apraxia: No abnormality detected Dysarthria: Slow with occasional hesitation or blurring Saliva: No abnormality detected Lip Seal: No abnormality detected Tongue Movement: Incomplete movement (limited assessment) Tongue Strength: Gross weakness (MARYAN) Tongue Coordination: Mild incoordination Gag: No gag (DNT) Palate: No spread or elevation (MARYAN) Cough Reflex: No deficit noted Voluntary Cough: Attempt, inadequate Voice: Mild impairment/slight huskiness Trach: No trach Oral Preparation: No deficits noted Bolus Clearance: Fully cleared Oral Transit: Delay > 1 second Delay consistency: Thin liquids, Purees Pharyngeal Phase: Immediate laryngeal elevation Pharyngeal Response: Cough before, during, or after swallow MASA Score: 144 Dysphagia: Moderate dysphagia (139-167) Aspiration Risk: Moderate aspiration risk (141-148) Plan AIR CARGO SPECIALIST SUPERVISOR Frequency of Services during current admission: Pending re-evaluation AIR CARGO SPECIALIST SUPERVISOR Recommendation (Add'l Services): Defer at this time Further Assessment/Follow up Indicated: Recommendations: (re-eval at bedside) Next Visit Plan:re-evaluate at the bedside Additional Referrals: RD f/u Please reference care plan for treatment goals, if indicated. Discharge Summary Statement If this is the last swallow therapy visit, this serves as the discharge summary. documented in this encounter Consult Notes * Leonor Duncan MD - 07/31/2024 3:36 PM CDTAssociated Order(s): IP CONSULT TO ELECTROPHYSIOLOGY Images from the original note were not included. Cardiology Consult Note - Electrophysiology Patient Name: Abiel Fink : 1950 Date of Service: 07/31/24 Requesting Attending: Leonor Quan, * Reason for Consult: Bradycardia HPI Abiel Fink is a 74 y.o. male with a history of hypertension, hyperlipidemia, CAD, 2nd degree AV block, moderate MR, type II DM, moderate RV dysfunction presenting with CABG x3 (BURGESS to LAD, left radial to OM, SVG to PDA). Electrophysiology has been consulted for bradycardia. Patient underwent CABG x3 on 07/24. Procedure complicated by RV dysfunction requiring epi, inhaled veletri. These have since been weaned off. Patient has intermittently been hypotensive with response to LR bolus and low dose pressors. EKG prior to CABG procedure shows bradycardia, multiple PACs, andMobitz 1. Patient is currently epicardially paced on DDD at 100 bpm. Pacer weans have showed underlying bradycardia, and concern for high degree block. There is no 12 lead EKG of underlying rhythm available at this time. CTS consulting primary team for evaluation of pacemaker need. Patient alert and awake. He has no complaints at this time. Denies chest pain, shortness of breath,lightheadedness. Review of Systems: Review of systems as per HPI and, otherwise all other systems are negative. PMHX: has a past medical history of Asthma, Diabetes mellitus (HCC), GERD (gastroesophageal refluxdisease), HH (hiatus hernia), Hypertension, and Sleep apnea. PSHX: has a past surgical history that includes Kidney surgery (196); Total knee arthroplasty (Left, 2017); Total knee arthroplasty (Right, 2019); and Multiple tooth extractions. Family Hx: family history includes Cardiomyopathy in his mother. Social Hx: reports that he quit smoking about 44 years ago. His smoking use included cigarettes. Hestarted smoking about 63 years ago. He has a 29.4 pack- year smoking history. He has been exposed totobacco smoke. He has never used smokeless tobacco. He reports that he does not currently use drugs. Allergies: Allergies Allergen Reactions Tramadol Itching Home Medications: HOME MEDICATIONS : albuterol HFA (PROVENTIL HFA,VENTOLIN HFA,PROAIR HFA) 90 mcg/actuation inhaler aspirin 81 mg enteric coated tablet bumetanide (BUMEX) 1 mg tablet carboxymethylcell-glycerin,PF, 0.5-0.9 % drops carvediloL (COREG) 6.[address] (CYMBALTA) 60 mg capsule insulin aspart U-100 (NovoLOG) 100 unit/mL (3 mL) insulin pen insulin glargine (LANTUS, SEMGLEE) 100 unit/mL subcutaneous syringe omeprazole (PriLOSEC) 20 mg capsule pregabalin (LYRICA) 200 mg capsule sacubitriL-valsartan (ENTRESTO) 24-26 mg tablet ammonium lactate (AMLACTIN) 12 % cream atorvastatin (LIPITOR) 40 mg tablet ibuprofen (ADVIL,MOTRIN) 800 mg tablet metFORMIN (GLUCOPHAGE) 1,000 mg tablet MULTIVITAMIN ORAL naproxen (ALEVE) 220 mg tablet semaglutide (OZEMPIC) 1 mg/dose (4 mg/3 mL) pen injector injection Current Medications: acetaZOLAMIDE, 500 mg, intravenous, Q8H aspirin, 81 mg, oral, Daily atorvastatin, 40 mg, oral, Daily clopidogreL, 75 mg, oral, Daily DULoxetine DR, 60 mg, oral, Nightly heparin, 5,000 Units, subcutaneous, Q8H HILDA insulin glargine, 50 Units, subcutaneous, QAM insulin lispro, 0-10 Units, subcutaneous, TID with meals insulin lispro, 0-5 Units, subcutaneous, Nightly isosorbide mononitrate ER, 15 mg, oral, Daily lidocaine (PF), , , methocarbamoL, 500 mg, oral, TID pantoprazole DR, 40 mg, oral, Daily QUEtiapine, 100 mg, oral, Nightly senna, 1 tablet, oral, BID dextrose 5%, 50 mL/hr, Last Rate: 50 mL/hr (07/31/24 1500) EPINEPHrine, 0-0.05 mcg/kg/min, Last Rate: Stopped (07/31/24 003) Lactated Ringer's, 10 mL/hr, Last Rate: Stopped (07/30/24212) sodium chloride 0.9%, 3-12 mL/hr, Last Rate: 9 mL/hr (07/31/24 1500) Objective Vital Signs: 24hr Min/Max: Temp Min: 37.5 ??C (99.5 ??F) Max: 37.5 ??C (99.5 ??F) Pulse Min: 90 Max: 102 Resp Min: 14 Max: 29 SpO2 Min: 85 % Max: 100 % Most Recent: Vitals: 07/31/241499 BP: Pulse: 92 Resp: 15 Temp: SpO2: 95% Intake/Output: Intake/Output Summary (Last 24 hours) at 07/31/2024 1538 Last data filed at 07/31/2024 1500 Gross per 24 hour Intake 1677.89 ml Output 1145 ml Net 532.89 ml Physical Exam: General appearance: no acute distress HEENT: NCAT, MMM, anicteric Lungs: CTAB, no w/r/r, non-labored Heart: Paced 90 BPM on DDD, S1, S2 normal, no murmur, rub or gallop. JVP not elevated, no LE edema.Sternotomy scar in place Abdomen: soft, NT/ND; bowel sounds normal Extremities: extremities normal, warm and well-perfused, equal pulses Skin: warm and dry Neurologic: No abnormal movements, non-focal exam Psych: Normal mood and affect Lab/Radiology/Diagnostic Review: Labs: Recent Labs Lab Units 07/30/24233807/30/24 0101 07/29/24 0031 07/28/24 0003 07/27/24 0003 HEMOGLOBIN g/dL 7.3* 7.6* 7.7* 8.1* 8.1* HEMATOCRIT % 23.5* 24.4* 24.0* 25.5* 25.5* WBC K/cumm 4.0 3.8 4.2 8.6 11.2* PLATELETS K/cumm 91* 72* 67* 75* 62* Recent Labs Lab Units 07/30/24233822/24 1213 07/30/24 0101 07/29/24 0031 07/28/24 0003 07/27/24 0003 SODIUM mmol/L 148* < > 150* 147* 145 138 POTASSIUM PLASMA mmol/L 3.3 < > 3.6 3.8 3.9 4.4 CHLORIDE mmol/L 109 < > 107 105 105 103 CO2 mmol/L 30 < > 34* 31 30 26 ANIONGAP mmol/L 9 < > 9 11 10 9 BUN SERUM mg/dL 56* < > 56* 55* 47* 38* CREATININE mg/dL 1.20 < > 1.39* 1.23 1.12 1.08 CALCIUM mg/dL 8.5 < > 9.2 8.9 8.8 8.6 MAGNESIUM mg/dL 2.1 -- 2.0 1.9 1.8 1.9 < > = values in this interval not displayed. Recent Labs Lab Units 07/24/24 1621 APTT sec 34 INR 1.44* Recent Labs Lab Units 07/31/24 0422 07/30/24 2339 07/30/24 0748 PH ART 7.44 7.44 7.46* PCO2 ART mmHg 39 38 42 PO2 ART mmHg 114* 114* 148* BASE EXC ART mmol/L 2 2 5 Cultures: No results found for: MICROBIOLOGY I personally reviewed the Telemetry images with the following findings: Possible high degree block. Otherwise epicardially paced. I personally reviewed the ECG images with the following findings: Sinus bradycardia with PACs and PVCs, Mobitz I block. TTE: 06/19/24 TTE (in media) Assessment/Plan Abiel Fink is a 74 y.o. male with a history of hypertension, hyperlipidemia, CAD, 2nd degree AV block, moderate MR, type II DM, moderate RV dysfunction presenting with CABG x3 (BURGESS to LAD, left radial to OM, SVG to PDA). Electrophysiology has been consulted for bradycardia. Problem List #Bradycardia #CAD s/p CABG x3 Patient presenting to hospital for CABG x3. Noted to have bradycardia with reduction in epicardial pacing. He is currently supported with DDD pacing mode. His pre-op ECG shows Mobitz I rhythm with PVCs and PACs and a rate of 46. There are infrequent tracings on telemetry concerning for high degree block, however an ECG of his underlying rhythm will help delineate his need for pacemaker. Recommendations: - Please obtain EKG of his underlying rhythm - Consideration for device pending above - Continue DDD pacing per primary team No new Assessment & Plan notes have been filed under this hospital service since the last note was generated. Service: Cardiology, Electrophysiology Thank you for allowing us to contribute to this patient's care, we will continue to follow. Leonor Duncan MD Media Sales Executive 3:38 PM 07/31/24 Cosigned by Blu Peacock MD at 08/01/2024 10:54 PM CDT Associated attestation - Blu Peacock MD - 08/01/2024 10:54 PM CDT Attending Documentation I have seen and examined the patient on 07/31/2024. I agree with the findings and plan of care as documented in the resident's/fellow's note. Supplementary Attestation My total encounter time on this service date was 70 minutes which was spent performing a [id number] encounter and personally completing the provider-level activities documented in the note. This includes time spent prior to the visit and after the visit in direct care of the patient. This time does not include time spent in any separately reportable services. Symptomatic bradycardia due to complete heart block after CAB surgery on 07/24. He has a narrow junctional escape rhythm. LVEF 40-50% With his LVEF < 50%, I would favor a CRTP or a LBAP dual chamber pacing device. Will assess the availability of the EP lab and schedule this procedure once a staffed EP lab roomand anesthesia team are identified. Blu Peacock MD 08/01/2024 10:51 PM * Toy Whaley, RD - 07/31/2024 1:20 PM CDTAssociated Order(s): IP CONSULT TO NUTRITION SERVICES NUTRITION ASSESSMENT Nutrition Status: Patient does not meet ASPEN criteria for malnutrition at this time. REASON FOR ASSESSMENT: Consult/Referral - Supplements Encounter Date: 07/31/24 1:20 PM Admission Date: 07/24/2024 LOS: 7 days HPI: Patient is a 74 y.o. male with hx of CAD s/p CABG x3 and Sternal Plating (08/03). 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 Objective Past Medical History: Diagnosis Date Asthma Diabetes mellitus (HCC) GERD (gastroesophageal reflux disease) HH (hiatus hernia) Hypertension Sleep apnea pt uses CPAP machine nightly Past Surgical History: Procedure Laterality Date KIDNEY SURGERY 1960 MULTIPLE TOOTH EXTRACTIONS TOTAL KNEE ARTHROPLASTY Left 2017 TOTAL KNEE ARTHROPLASTY Right 2019 Social History Tobacco Use Smoking status: Former Current packs/day: 0.00 Average packs/day: 1.5 packs/day for 19.6 years (29.4 ttl pk-yrs) Types: Cigarettes Start date: 1960 Quit date: 06/11/1980 Years since quittin.1 Passive exposure: Past Smokeless tobacco: Never Substance and Sexual Activity Drug use: Not Currently Sexual activity: Defer Alcohol Use: Not At Risk (07/24/2024) AUDIT-C Frequency of Alcohol Consumption: Monthly or less Average Number of Drinks: 1 or 2 Frequency of Binge Drinking: Never MEDICATION/LAB REVIEW: Scheduled Meds: acetaZOLAMIDE, 500 mg, intravenous, Q8H aspirin, 81 mg, oral, Daily atorvastatin, 40 mg, oral, Daily clopidogreL, 75 mg, oral, Daily DULoxetine DR, 60 mg, oral, Nightly heparin, 5,000 Units, subcutaneous, Q8H HILDA insulin glargine, 50 Units, subcutaneous, QAM insulin lispro, 0-10 Units, subcutaneous, TID with meals insulin lispro, 0-5 Units, subcutaneous, Nightly isosorbide mononitrate ER, 15 mg, oral, Daily lidocaine (PF), , , methocarbamoL, 500 mg, oral, TID pantoprazole DR, 40 mg, oral, Daily QUEtiapine, 100 mg, oral, Nightly senna, 1 tablet, oral, BID Continuous Infusions: dextrose 5%, 50 mL/hr, Last Rate: 50 mL/hr (07/31/24 1300) EPINEPHrine, 0-0.05 mcg/kg/min, Last Rate: Stopped (07/31/24 0038) Lactated Ringer's, 10 mL/hr, Last Rate: Stopped (07/30/24 0213) sodium chloride 0.9%, 3-12 mL/hr, Last Rate: 9 mL/hr (07/31/24 1300) PRN Meds: dextrose OR dextrose glucagon hydrOXYzine lidocaine (PF) ondansetron oxyCODONE potassium chloride sodium chloride 0.9% Recent Labs Lab Units 07/30/24 2339 07/30/24 1213 07/30/24 01007/29/24 0031 SODIUM mmol/L 148* < > 150* 147* POTASSIUM PLASMA mmol/L 3.3 < > 3.6 3.8 CHLORIDE mmol/L 109 < > 107 105 CO2 mmol/L 30 < > 34* 31 BUN SERUM mg/dL 56* < > 56* 55* CREATININE mg/dL 1.20 < > 1.39* 1.23 SDB-HIZ-IORLLHS mL/min/1.73 m2 64 < > 54* 62 CALCIUM mg/dL 8.5 < > 9.2 8.9 PHOSPHORUS PLASMA mg/dL 3.6 -- 4.1 3.3 MAGNESIUM mg/dL 2.1 -- 2.0 1.9 < > = values in this interval not displayed. Recent Labs Lab Units 07/31/24 1124 07/31/24 0738 07/30/24233807/30/24200407/30/24 1701 07/30/24 1213 07/30/24 1056 GLUCOSE mg/dL -- -- 169 -- -- 153 -- POC GLUCOSE MONITOR mg/dL 106 121 -- 162 181 -- 141 No results found for: ALT , AST , BILIRUBIN , ALKPHOS , LIPASE Lab Results Component Value Date HDL 26 (L) 07/24/2024 LDLCALC 56 07/24/2024 CHOL 101 07/24/2024 TRIG 93 07/24/2024 TRIG 100 07/24/2024 NURSING ASSESSMENT: Last BM Date: 07/29/24 Bowel Sounds (All Quadrants): Active Naresh Scale Score: 14 Skin Integrity: Surgical incision Edema: Trace Minute Ventilation (L/min): 7.2 L/min Vital Signs BP: 141/73 Temp: 37.5 ??C (99.5 ??F) Pulse: 90 Resp: 14 SpO2: 97 % Intake/Output Summary (Last 24 hours) at 07/31/2024 1320 Last data filed at 07/31/2024 1300 Gross per 24 hour Intake 1816.59 ml Output 1040 ml Net 776.59 ml Adult Malnutrition Scoring Tool (MST) What diet do you follow at home?: Consistent Carbohydrate Have You Recently Lost Weight Without Trying?: No Have you been eating poorly because of a decreased appetite?: No Malnutrition Screening Tool (MST) Score: 0 Hunger Screen - Admission Within the past 12 months the food we bought just didn't last and we didn't have money to get more.: Never true Within the past 12 months we worried whether our food would run out before we got money to buy more.: Never true Anthropometrics Weight: 103.1 kg (227 lb 4.7 oz) Admission Weight : 111.1 kg Weight Change: -0.40 kg (-0.88 lbs) IBW/kg (Calculated) : 75.3 kg Height: 177.8 cm (5' 10 ) Weight in (lb) to have BMI = 25: 173.9 BMI (Calculated): 32.6 Wt Readings from Last 10 Encounters: 07/29/24 103.1 kg (227 lb 4.7 oz) 07/14/24 110.2 kg (242 lb 15.2 oz) 06/23/20 113.4 kg (250 lb) ESTIMATED NEEDS: Total Kcal/kg Estimated Needs : 1855.8 Kcal/k. Type of Weight Used for Estimated Kcals: Current Total Protein Estimated Needs (gm): 90.36 Protein Needs Based on g/k.2 Type of Weight Used for Estimated Protein : [place] Total Fluid Estimated Needs: 1882.5 Fluid Needs Based on : 25 ml/kg Type of Weight Used for Estimated Fluid Needs: [place] Dietary Orders (From admission, onward) Start Ordered 07/31/24 1317 Oral Nutrition Supplements ([facility]) Select Supplement: Glucerna Shake - Chocolate, VARY/multiple Flavor With Breakfast and Dinner Question Answer Comment ([facility]) Select Supplement: Glucerna Shake - Chocolate ([facility]) Select Supplement: VARY/multiple Flavor 07/31/24 1316 07/31/24 1046 Adult Diet Restricted; Mechanical Soft; Regular Liquid Diet effective now Question Answer Comment ([facility]) Diet type Restricted Modified Consistency: Mechanical Soft Fluid Consistency: Regular Liquid 07/31/24 1047 Allergies: Reviewed, NKFA IMPRESSION: RD consulted for supplement support. Upon interview, pt's delirium is resolving and he is able to participate in simple interview. He was advanced to a diet today and has not had his first meal yet. He follows a Regular diet, NKFA, note he is edentulous and does not have any dentures so team has ordered mechanical soft foods. Pt says he had a normal appetite prior to his surgery, did not use any supplements but would be willing to use one until his appetite returns post- op. He says his stated weight is 242-249 lbs, currently 227 lbs and he is net - 5.6L this admission, spot-dosing diuretics and trace edema noted. Pt says his weight had been stable prior to admission, current weight loss is likely 2/2 fluid-losses and also note these are bed scale weights. Noted labs 07/30: Na 148, K 3.3, BUN 56, Cr 1.2. Pt given 120 mEq KCl in the last 24 hrs. HgbA1c of 7.5% (07/14/24). BG/24 hrs; 181, 162, 121, and 106 mg/dL. Managed w/ Lantus 50 units Qam and Lispro QID. Wt Readings from Last 6 Encounters: 07/29/24 103.1 kg (227 lb 4.7 oz) 07/14/24 110.2 kg (242 lb 15.2 oz) 06/23/20 113.4 kg (250 lb) 07/27/24: 249 lbs Stated ASPEN MALNUTRITION ASSESSMENT: Date of completion: 07/31 NUTRITION FOCUSED PHYSICAL EXAM: Not clinically indicated, no concerns for malnutrition at this time. NUTRITION DIAGNOSIS: Nutrition Diagnosis 1: Inadequate oral intake Related to: Acute illness/injury, Loss of appetite Evidenced by: Patient interview INTERVENTION(S): Summary: Communication, Encouragement, Medical food supplement Advance to a Mechanical Soft Diet with thin liquids d/t edentulous status, advance to a Regular diet pt team and pt. If BG becomes >200 mg/dL, add Consistent CHO modifier. RD added Glucerna BID to trial while appetite is decreased. Please obtain standing weights 2x/week. RD will continue to monitor plan of care, PO intake and adequacy, BG and nutrition-related labs, BM, and weight changes for further nutrition intervention as indicated. GOAL(S): Adequate nutrition to meet estimated needs by next assessment, Advance to oral intake as medically able, Oral intake to meet 75% estimated nutritional needs by next assessment MONITORING/EVALUATION: Appetite, Blood glucoses, Diet advancement, Electrolyte changes, Hydration status, Labs, PO intake,Stool patterns, Supplement tolerance, Swallow function, Weight changes Toy Whaley MS, RD, [facility], N [phone] Candle Maker-Weekend: [phone] documented in this encounter Nursing Notes * Nedra Ray RN - 08/11/2024 12:22 PM CDT Report called to Mag at the CO. Patients PIVs removed. Discharge packet and education reviewed, all questions were answered. Patient ready for discharge, awaiting EMS pickup. * Mynor Sutton RN - 08/04/2024 1:00 PM CDT Patient is returning to 8205 by bed on monitor and accompanied by RN .Patient is alert and orientedto person,place,time,and situation. Vitals are stable. Patient is able to drink with no complications. Report was given to Renee Benitez. Chart was sent with transporter. * Mynor Sutton RN - 08/04/2024 11:55 AM CDT Patient had xray completed and Dr Aelksandr lu to send back to floor. * Parveen Mojica RN - 07/29/2024 6:46 AM CDT Nursing cares resumed at 0030 am. I reviewed and agreed with previous nursing assessments with exceptions noted. Will continue to monitor patient. * Ruth Ann Cleary RN - 07/25/2024 12:30 AM CDT I agree with the assessment charted * Piot Olson RN - 07/24/2024 4:05 PM CDT This patient arrives to 82 intubated/sedated accompanied by OR and Anesthesia staff. On arrival all critical hook ups were completed and has been turned over to ICU level of care. Report given at bedside with both teams present. documented in this encounter Miscellaneous Notes * Plan of Care - Nedra Ray RN - 08/11/2024 11:43 AM CDT Problem: Activity Goal: Patient's tolerance of increased activity will improve Outcome: Adequate for Discharge Goal: Patient will maintain or regain ADL function Outcome: Adequate for Discharge Goal: Ability to avoid complications of mobility impairment will improve Outcome: Adequate for Discharge Problem: Coping Goal: Ability to verbalize positive feelings about self will improve Outcome: Adequate for Discharge Goal: Ability to adjust to condition or change in health will improve Outcome: Adequate for Discharge Problem: Fluid Volume Goal: Will regain or maintain balanced intake and output Outcome: Adequate for Discharge Problem: Lack of Knowledge Goal: Patient's knowledge of postoperative course will improve Outcome: Adequate for Discharge Problem: Nutrition Goal: Patient's nutritional status will improve Outcome: Adequate for Discharge Goal: Patient's ability to achieve adequate nutrition will improve Outcome: Adequate for Discharge Problem: Physical Regulation Goal: Ability to maintain clinical measurements within normal limits will improve Outcome: Adequate for Discharge Goal: Complications related to the surgical procedure will be minimized or avoided Outcome: Adequate for Discharge Goal: Ability to maintain adequate cardiac output will improve Outcome: Adequate for Discharge Goal: Will maintain patent airway Outcome: Adequate for Discharge Goal: Gastrointestinal status for postoperative course will improve Outcome: Adequate for Discharge Goal: Postoperative complications of an ostomy will be minimized or avoided Outcome: Adequate for Discharge Goal: Ability to re-establish a normal urinary elimination pattern will improve Outcome: Adequate for Discharge Problem: Sensory (Pain) Goal: Pain levels will decrease Outcome: Adequate for Discharge Problem: Skin Integrity Goal: Wound appearance will improve during the postoperative course Outcome: Adequate for Discharge Problem: Fall Risk Goal: Ability to state ways to decrease the risk of falls will improve Outcome: Adequate for Discharge Goal: Will remain free from falls Outcome: Adequate for Discharge Goal: Will remain free from injury from falls Outcome: Adequate for Discharge Problem: Skin Integrity Impairment Risk Goal: Mobility will improve Outcome: Adequate for Discharge Goal: Understanding of ways to prevent future skin breakdown will improve Outcome: Adequate for Discharge Goal: Nutritional status will improve Outcome: Adequate for Discharge Goal: Risk for impaired skin integrity will decrease Outcome: Adequate for Discharge Problem: Lack of Knowledge Goal: Ability to develop a pain control plan will improve Outcome: Adequate for Discharge Problem: Medication Goal: Satisfaction with pain management medication regimen will improve Outcome: Adequate for Discharge Problem: Sensory Goal: Ability to identify factors that increase pain levels will improve while working to decrease the patient's pain levels Outcome: Adequate for Discharge Problem: Coping Goal: Ability to cope will improve Outcome: Adequate for Discharge Problem: Health Behavior Goal: Identification of resources available to assist in meeting health care needs will improve Outcome: Adequate for Discharge Problem: Discharge Planning Goal: Understanding discharge needs will improve Outcome: Adequate for Discharge Problem: Neurosensory Goal: Achieves stable or improved neurological status Outcome: Adequate for Discharge Problem: Respiratory Goal: Achieves optimal ventilation and oxygenation Outcome: Adequate for Discharge Goal: Ability to maintain a clear airway will improve Outcome: Adequate for Discharge Problem: Cardiovascular Goal: Maintains optimal cardiac output and hemodynamic stability Outcome: Adequate for Discharge Problem: Skin/Tissue Integrity Goal: Skin integrity remains intact Outcome: Adequate for Discharge Problem: Musculoskeletal Goal: Return mobility to safest level of function Outcome: Adequate for Discharge Problem: Gastrointestinal Goal: Minimal or absence of nausea and vomiting Outcome: Adequate for Discharge Problem: Genitourinary Goal: Urinary catheter remains patent Outcome: Adequate for Discharge Problem: Infection Goal: Absence of infection during hospitalization Outcome: Adequate for Discharge Problem: Metabolic/Fluid and Electrolytes Goal: Electrolytes maintained within normal limits Outcome: Adequate for Discharge Problem: Hematologic Goal: Maintains hematologic stability Outcome: Adequate for Discharge Goals: Clinical Goals for the Shift: vss, I&OS, pain management, remain free from falls and 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 * Plan of Care - Mayi Tinoco RRT - 08/11/2024 5:43 AM CDT NPPV - STANDBY Situation: The patient was ordered on NPPV for Central Sleep Apnea (CSA). The patient is resting comfortably with no signs of distress, their respiratory status is within expected parameters; a hospital-provided NPPV machine is on standby at the bedside.. Plan: Continue to monitor the patient's respiratory status and place them on their bedside hospital-provided NPPV machine if they develop signs of respiratory distress.. * Plan of Care - Leanna Krueger RN - 08/10/2024 9:17 PM CDT Goals: Clinical Goals for the Shift: vss, I&OS, pain management, remain free from falls and injury [employer] Patient Centered Goal for Treatment: snf vs rehab Problem: Activity Goal: Patient's tolerance of increased activity will improve Outcome: Ongoing Goal: Patient will maintain or regain ADL function Outcome: Ongoing Goal: Ability to avoid complications of mobility impairment will improve Outcome: Ongoing Problem: Coping Goal: Ability to verbalize positive feelings about self will improve Outcome: Ongoing Goal: Ability to adjust to condition or change in health will improve Outcome: Ongoing Problem: Fluid Volume Goal: Will regain or maintain balanced intake and output Outcome: Ongoing Problem: Lack of Knowledge Goal: Patient's knowledge of postoperative course will improve Outcome: Ongoing Problem: Nutrition Goal: Patient's nutritional status will improve Outcome: Ongoing Goal: Patient's ability to achieve adequate nutrition will improve Outcome: Ongoing Problem: Physical Regulation Goal: Ability to maintain clinical measurements within normal limits will improve Outcome: Ongoing Goal: Complications related to the surgical procedure will be minimized or avoided Outcome: Ongoing Goal: Ability to maintain adequate cardiac output will improve Outcome: Ongoing Goal: Will maintain patent airway Outcome: Ongoing Goal: Gastrointestinal status for postoperative course will improve Outcome: Ongoing Goal: Postoperative complications of an ostomy will be minimized or avoided Outcome: Ongoing Goal: Ability to re-establish a normal urinary elimination pattern will improve Outcome: Ongoing Problem: Sensory (Pain) Goal: Pain levels will decrease Outcome: Ongoing Problem: Skin Integrity Goal: Wound appearance will improve during the postoperative course Outcome: Ongoing Problem: Fall Risk Goal: Ability to state ways to decrease the risk of falls will improve Outcome: Ongoing Goal: Will remain free from falls Outcome: Ongoing Goal: Will remain free from injury from falls Outcome: Ongoing Problem: Skin Integrity Impairment Risk Goal: Mobility will improve Outcome: Ongoing Goal: Understanding of ways to prevent future skin breakdown will improve Outcome: Ongoing Goal: Nutritional status will improve Outcome: Ongoing Goal: Risk for impaired skin integrity will decrease Outcome: Ongoing Problem: Lack of Knowledge Goal: Ability to develop a pain control plan will improve Outcome: Ongoing Problem: Medication Goal: Satisfaction with pain management medication regimen will improve Outcome: Ongoing Problem: Sensory Goal: Ability to identify factors that increase pain levels will improve while working to decrease the patient's pain levels Outcome: Ongoing Problem: Coping Goal: Ability to cope will improve Outcome: Ongoing Problem: Health Behavior Goal: Identification of resources available to assist in meeting health care needs will improve Outcome: Ongoing Problem: Discharge Planning Goal: Understanding discharge needs will improve Outcome: Ongoing Problem: Neurosensory Goal: Achieves stable or improved neurological status Outcome: Ongoing Problem: Respiratory Goal: Achieves optimal ventilation and oxygenation Outcome: Ongoing Goal: Ability to maintain a clear airway will improve Outcome: Ongoing Problem: Cardiovascular Goal: Maintains optimal cardiac output and hemodynamic stability Outcome: Ongoing Problem: Skin/Tissue Integrity Goal: Skin integrity remains intact Outcome: Ongoing Problem: Musculoskeletal Goal: Return mobility to safest level of function Outcome: Ongoing Problem: Gastrointestinal Goal: Minimal or absence of nausea and vomiting Outcome: Ongoing Problem: Genitourinary Goal: Urinary catheter remains patent Outcome: Ongoing Problem: Infection Goal: Absence of infection during hospitalization Outcome: Ongoing Problem: Metabolic/Fluid and Electrolytes Goal: Electrolytes maintained within normal limits Outcome: Ongoing Problem: Hematologic Goal: Maintains hematologic stability Outcome: Ongoing * Plan of Care - Nedra Ray RN - 08/10/2024 6:09 PM CDT Problem: Activity Goal: Patient's tolerance of increased activity will improve Outcome: Progressing Goal: Patient will maintain or regain ADL function Outcome: Progressing Goal: Ability to avoid complications of mobility impairment will improve Outcome: Progressing Problem: Coping Goal: Ability to verbalize positive feelings about self will improve Outcome: Progressing Goal: Ability to adjust to condition or change in health will improve Outcome: Progressing Problem: Fluid Volume Goal: Will regain or maintain balanced intake and output Outcome: Progressing Problem: Lack of Knowledge Goal: Patient's knowledge of postoperative course will improve Outcome: Progressing Problem: Nutrition Goal: Patient's nutritional status will improve Outcome: Progressing Goal: Patient's ability to achieve adequate nutrition will improve Outcome: Progressing Problem: Physical Regulation Goal: Ability to maintain clinical measurements within normal limits will improve Outcome: Progressing Goal: Complications related to the surgical procedure will be minimized or avoided Outcome: Progressing Goal: Ability to maintain adequate cardiac output will improve Outcome: Progressing Goal: Will maintain patent airway Outcome: Progressing Goal: Gastrointestinal status for postoperative course will improve Outcome: Progressing Goal: Postoperative complications of an ostomy will be minimized or avoided Outcome: Progressing Goal: Ability to re-establish a normal urinary elimination pattern will improve Outcome: Progressing Problem: Sensory (Pain) Goal: Pain levels will decrease Outcome: Progressing Problem: Skin Integrity Goal: Wound appearance will improve during the postoperative course Outcome: Progressing Problem: Fall Risk Goal: Ability [...] skin integrity will decrease Outcome: Progressing Problem: Lack of Knowledge Goal: [...] care needs will improve Outcome: Progressing Problem: Discharge Planning Goal: Understanding discharge needs will improve Outcome: Progressing Problem: Neurosensory Goal: Achieves stable or improved neurological status Outcome: Progressing Problem: Respiratory Goal: Achieves optimal ventilation and oxygenation Outcome: Progressing Goal: Ability to maintain a clear airway will improve Outcome: Progressing Problem: Cardiovascular Goal: Maintains optimal cardiac output and hemodynamic stability Outcome: Progressing Problem: Skin/Tissue Integrity Goal: Skin integrity remains intact Outcome: Progressing Problem: Musculoskeletal Goal: Return mobility to safest level of function Outcome: Progressing Problem: Gastrointestinal Goal: Minimal or absence of nausea and vomiting Outcome: Progressing Problem: Genitourinary Goal: Urinary catheter remains patent Outcome: Progressing Problem: Infection Goal: Absence of infection during hospitalization Outcome: Progressing Problem: Metabolic/Fluid and Electrolytes Goal: Electrolytes maintained within normal limits Outcome: Progressing Problem: Hematologic Goal: Maintains hematologic stability Outcome: Progressing Goals: Clinical Goals for the Shift: vss, I&OS, pain management, remain free from falls and injury Snf Patient Centered Goal for Treatment: snf vs rehab Summary: VSS, I&Os monitored, pain management plan followed, pt remained free from falls and injury * Plan of Care - Phoebe Tinoco RN - 08/10/2024 3:13 PM CDT 08/10/24 1513 Discharge Planning Support System Children Anticipated discharge level of care Acute Rehab Does the patient need discharge transport arranged? Yes Type of Transportation Ambulance/EMS Has discharge transport been arranged? No Post Acute Care Plan Home Care Services N/A OP Services N/A DME N/A Post Acute Care Facility Yes Referral Status Started Accepted Post Acute Care Location and Contact [facility] CM Progression of Care Update Per Medical Chart/Rounds/IDR: Pt is medically ready for d/c. ADD: 08/14/24 Discharge Barriers: Pt is rec[facility] not [facility] a bed until next week, 08/14. [facility] will continue to follow. Education Needs Identified (plan): Update the pt on the bed status for [facility] as necessary. F/U Appointments: [facility]. Patient's Identified Problem/Goal Problem:?Ensure acute medical needs are met and that patient has a safe discharge plan. Goal:?Secure a discharge plan that patient/family are agreeable with?and ensure patient has continuum of care. Patient and/or family are agreeable with plan. reimbursement manager will continue to follow and assist with discharge planning as needed. If any further discharge needs arise, please contact the covering family caseworker. * Plan of Care - Arabella Mancini RN - 08/09/2024 4:17 PM CDT Problem: Activity Goal: Patient's tolerance of increased activity will improve Outcome: Progressing Goal: Patient will maintain or regain ADL function Outcome: Progressing Goal: Ability to avoid complications of mobility impairment will improve Outcome: Progressing Problem: Coping Goal: Ability to verbalize positive feelings about self will improve Outcome: Progressing Goal: Ability to adjust to condition or change in health will improve Outcome: Progressing Problem: Fluid Volume Goal: Will regain or maintain balanced intake and output Outcome: Progressing Problem: Lack of Knowledge Goal: Patient's knowledge of postoperative course will improve Outcome: Progressing Problem: Nutrition Goal: Patient's nutritional status will improve Outcome: Progressing Goal: Patient's ability to achieve adequate nutrition will improve Outcome: Progressing Problem: Physical Regulation Goal: Ability to maintain clinical measurements within normal limits will improve Outcome: Progressing Goal: Complications related to the surgical procedure will be minimized or avoided Outcome: Progressing Goal: Ability to maintain adequate cardiac output will improve Outcome: Progressing Goal: Will maintain patent airway Outcome: Progressing Goal: Gastrointestinal status for postoperative course will improve Outcome: Progressing Goal: Postoperative complications of an ostomy will be minimized or avoided Outcome: Progressing Goal: Ability to re-establish a normal urinary elimination pattern will improve Outcome: Progressing Problem: Sensory (Pain) Goal: Pain levels will decrease Outcome: Progressing Problem: Skin Integrity Goal: Wound appearance will improve during the postoperative course Outcome: Progressing Problem: Fall Risk Goal: Ability [...] skin integrity will decrease Outcome: Progressing Problem: Lack of Knowledge Goal: [...] care needs will improve Outcome: Progressing Problem: Discharge Planning Goal: Understanding discharge needs will improve Outcome: Progressing Problem: Neurosensory Goal: Achieves stable or improved neurological status Outcome: Progressing Problem: Respiratory Goal: Achieves optimal ventilation and oxygenation Outcome: Progressing Goal: Ability to maintain a clear airway will improve Outcome: Progressing Problem: Cardiovascular Goal: Maintains optimal cardiac output and hemodynamic stability Outcome: Progressing Problem: Skin/Tissue Integrity Goal: Skin integrity remains intact Outcome: Progressing Problem: Musculoskeletal Goal: Return mobility to safest level of function Outcome: Progressing Problem: Gastrointestinal Goal: Minimal or absence of nausea and vomiting Outcome: Progressing Problem: Genitourinary Goal: Urinary catheter remains patent Outcome: Progressing Problem: Infection Goal: Absence of infection during hospitalization Outcome: Progressing Problem: Metabolic/Fluid and Electrolytes Goal: Electrolytes maintained within normal limits Outcome: Progressing Problem: Hematologic Goal: Maintains hematologic stability Outcome: Progressing Goals: Clinical Goals for the Shift: vss, monitor labs, IOs, promote comfort and safety [employer] Patient Centered Goal for Treatment: snf vs rehab Summary: VSS, up to chair, pain well controlled * Plan of Care - Bautista Grimes RRT - 08/09/2024 3:35 AM CDT NPPV - REFUSED Situation: The patient was ordered on NPPV for Obstructive Sleep Apnea (JACQUELINE). RT attempted to place the patient on their hospital provided NPPV machine. The patient did not care to wear their NPPV device, and REFUSED to wear. Plan: Provide nightly encouragement and coaching of benefits related to the use of NPPV. * Plan of Care - Arabella Mancini RN - 08/08/2024 6:31 PM CDT Problem: Activity Goal: Patient's tolerance of increased activity will improve Outcome: Progressing Goal: Patient will maintain or regain ADL function Outcome: Progressing Goal: Ability to avoid complications of mobility impairment will improve Outcome: Progressing Problem: Coping Goal: Ability to verbalize positive feelings about self will improve Outcome: Progressing Goal: Ability to adjust to condition or change in health will improve Outcome: Progressing Problem: Fluid Volume Goal: Will regain or maintain balanced intake and output Outcome: Progressing Problem: Lack of Knowledge Goal: Patient's knowledge of postoperative course will improve Outcome: Progressing Problem: Nutrition Goal: Patient's nutritional status will improve Outcome: Progressing Goal: Patient's ability to achieve adequate nutrition will improve Outcome: Progressing Problem: Physical Regulation Goal: Ability to maintain clinical measurements within normal limits will improve Outcome: Progressing Goal: Complications related to the surgical procedure will be minimized or avoided Outcome: Progressing Goal: Ability to maintain adequate cardiac output will improve Outcome: Progressing Goal: Will maintain patent airway Outcome: Progressing Goal: Gastrointestinal status for postoperative course will improve Outcome: Progressing Goal: Postoperative complications of an ostomy will be minimized or avoided Outcome: Progressing Goal: Ability to re-establish a normal urinary elimination pattern will improve Outcome: Progressing Problem: Sensory (Pain) Goal: Pain levels will decrease Outcome: Progressing Problem: Skin Integrity Goal: Wound appearance will improve during the postoperative course Outcome: Progressing Problem: Fall Risk Goal: Ability [...] skin integrity will decrease Outcome: Progressing Problem: Lack of Knowledge Goal: [...] care needs will improve Outcome: Progressing Problem: Discharge Planning Goal: Understanding discharge needs will improve Outcome: Progressing Problem: Neurosensory Goal: Achieves stable or improved neurological status Outcome: Progressing Problem: Respiratory Goal: Achieves optimal ventilation and oxygenation Outcome: Progressing Goal: Ability to maintain a clear airway will improve Outcome: Progressing Problem: Cardiovascular Goal: Maintains optimal cardiac output and hemodynamic stability Outcome: Progressing Problem: Skin/Tissue Integrity Goal: Skin integrity remains intact Outcome: Progressing Problem: Musculoskeletal Goal: Return mobility to safest level of function Outcome: Progressing Problem: Gastrointestinal Goal: Minimal or absence of nausea and vomiting Outcome: Progressing Problem: Genitourinary Goal: Urinary catheter remains patent Outcome: Progressing Problem: Infection Goal: Absence of infection during hospitalization Outcome: Progressing Problem: Metabolic/Fluid and Electrolytes Goal: Electrolytes maintained within normal limits Outcome: Progressing Problem: Hematologic Goal: Maintains hematologic stability Outcome: Progressing Goals: Clinical Goals for the Shift: vss, monitor labs, IOs, promote comfort and safety [employer] Patient Centered Goal for Treatment: snf vs rehab Summary: Vss, monitor labs, monitor vitals, promote safety * Plan of Care - Viry Tabor RN - 08/08/2024 12:18 PM CDT [facility] spoke with Jennifer at [place]. She will present the patient's clinical information to the doctors at [facility]. Does not anticipate a bed until next week. * Plan of Care - Katherine Dobbins RRT - 08/08/2024 4:29 AM CDT NPPV - REFUSED Situation: The patient was ordered on NPPV for Obstructive Sleep Apnea (JACQUELINE). RT attempted to place the patient on their hospital provided NPPV machine. The patient did not care to wear their NPPV device, and REFUSED to wear. Plan: Continue to monitor the patient's status and try again if patient becomes distressed. * Plan of Care - Arabella Mancini RN - 08/07/2024 4:45 PM CDT Problem: Activity Goal: Patient's tolerance of increased activity will improve Outcome: Progressing Goal: Patient will maintain or regain ADL function Outcome: Progressing Goal: Ability to avoid complications of mobility impairment will improve Outcome: Progressing Problem: Coping Goal: Ability to verbalize positive feelings about self will improve Outcome: Progressing Goal: Ability to adjust to condition or change in health will improve Outcome: Progressing Problem: Fluid Volume Goal: Will regain or maintain balanced intake and output Outcome: Progressing Problem: Lack of Knowledge Goal: Patient's knowledge of postoperative course will improve Outcome: Progressing Problem: Nutrition Goal: Patient's nutritional status will improve Outcome: Progressing Goal: Patient's ability to achieve adequate nutrition will improve Outcome: Progressing Problem: Physical Regulation Goal: Ability to maintain clinical measurements within normal limits will improve Outcome: Progressing Goal: Complications related to the surgical procedure will be minimized or avoided Outcome: Progressing Goal: Ability to maintain adequate cardiac output will improve Outcome: Progressing Goal: Will maintain patent airway Outcome: Progressing Goal: Gastrointestinal status for postoperative course will improve Outcome: Progressing Goal: Postoperative complications of an ostomy will be minimized or avoided Outcome: Progressing Goal: Ability to re-establish a normal urinary elimination pattern will improve Outcome: Progressing Problem: Sensory (Pain) Goal: Pain levels will decrease Outcome: Progressing Problem: Skin Integrity Goal: Wound appearance will improve during the postoperative course Outcome: Progressing Problem: Fall Risk Goal: Ability [...] skin integrity will decrease Outcome: Progressing Problem: Lack of Knowledge Goal: [...] care needs will improve Outcome: Progressing Problem: Discharge Planning Goal: Understanding discharge needs will improve Outcome: Progressing Problem: Neurosensory Goal: Achieves stable or improved neurological status Outcome: Progressing Problem: Respiratory Goal: Achieves optimal ventilation and oxygenation Outcome: Progressing Goal: Ability to maintain a clear airway will improve Outcome: Progressing Problem: Cardiovascular Goal: Maintains optimal cardiac output and hemodynamic stability Outcome: Progressing Problem: Skin/Tissue Integrity Goal: Skin integrity remains intact Outcome: Progressing Problem: Musculoskeletal Goal: Return mobility to safest level of function Outcome: Progressing Problem: Gastrointestinal Goal: Minimal or absence of nausea and vomiting Outcome: Progressing Problem: Genitourinary Goal: Urinary catheter remains patent Outcome: Progressing Problem: Infection Goal: Absence of infection during hospitalization Outcome: Progressing Problem: Metabolic/Fluid and Electrolytes Goal: Electrolytes maintained within normal limits Outcome: Progressing Problem: Hematologic Goal: Maintains hematologic stability Outcome: Progressing Goals: Clinical Goals for the Shift: VSS, pain managed per patients goal, OOBTC for meals, accurate I&Os Snf Patient Centered Goal for Treatment: snf vs rehab Summary: VSS, pain well controlled, OOB x3 today, monitor I&o * Plan of Care - Viry Tabor RN - 08/07/2024 11:49 AM CDT 07/25/24 0931 Discharge Planning Support System Children Anticipated discharge level of care Acute Rehab ([facility]) Does the patient need discharge transport arranged? Yes Type of Transportation Ambulance/EMS Has discharge transport been arranged? No Post Acute Care Plan Home Care Services N/A OP Services N/A DME N/A Post Acute Care Facility Yes Referral Status Started CM Progression of Care Update Per Medical Chart/Rounds/IDR: starting GDMT. Wires and tubes out. Patient not medically ready for discharge. ADD: 08/09 Discharge Barriers: acceptance and bed availability at [facility]. Education Needs Identified (plan): [facility] completed and faxed to [phone] along with supporting clinical documentation. F/U Appointments: per facility. Patient's Identified Problem/Goal Problem:?Ensure acute medical needs are met and that patient has a safe discharge plan. Goal:?Secure a discharge plan that patient/family are agreeable with?and ensure patient has continuum of care. Patient and/or family are agreeable with plan. reimbursement manager will continue to follow and assist with discharge planning as needed. If any further discharge needs arise, please contact the covering family caseworker. * Plan of Care - Kasia Arechiga RRT - 08/07/2024 1:56 AM CDT NPPV - REFUSED Situation: The patient was ordered on NPPV for Obstructive Sleep Apnea (JACQUELINE). RT attempted to place the patient on their hospital provided NPPV machine. The patient did not care to wear their NPPV device, and REFUSED to wear. rn, RN, has been notified of their refusal. Plan: Continue to monitor the patient's status and try again if patient becomes distressed. * Plan of Care - Brandyn Dwyer RN - 08/07/2024 12:42 AM CDT Problem: Activity Goal: Patient's tolerance of increased activity will improve Outcome: Progressing Goal: Patient will maintain or regain ADL function Outcome: Progressing Goal: Ability to avoid complications of mobility impairment will improve Outcome: Progressing Problem: Coping Goal: Ability to verbalize positive feelings about self will improve Outcome: Progressing Goal: Ability to adjust to condition or change in health will improve Outcome: Progressing Problem: Fluid Volume Goal: Will regain or maintain balanced intake and output Outcome: Progressing Problem: Lack of Knowledge Goal: Patient's knowledge of postoperative course will improve Outcome: Progressing Problem: Physical Regulation Goal: Ability to maintain clinical measurements within normal limits will improve Outcome: Progressing Goal: Complications related to the surgical procedure will be minimized or avoided Outcome: Progressing Goal: Ability to maintain adequate cardiac output will improve Outcome: Progressing Goal: Will maintain patent airway Outcome: Progressing Goal: Gastrointestinal status for postoperative course will improve Outcome: Progressing Goal: Postoperative complications of an ostomy will be minimized or avoided Outcome: Progressing Goal: Ability to re-establish a normal urinary elimination pattern will improve Outcome: Progressing Problem: Skin Integrity Goal: Wound appearance will improve during the postoperative course Outcome: Progressing Problem: Fall Risk Goal: Ability [...] skin integrity will decrease Outcome: Progressing Problem: Lack of Knowledge Goal: Ability to develop a pain control plan will improve Outcome: Progressing Problem: Discharge Planning Goal: Understanding discharge needs will improve Outcome: Progressing Problem: Neurosensory Goal: Achieves stable or improved neurological status Outcome: Progressing Goals: Clinical Goals for the Shift: VSS, pain managed per patients goal, OOBTC for meals, accurate I&Os [employer] Patient Centered Goal for Treatment: snf vs rehab Summary: patient is increasing in activity tolerance. Labs and vital signs monitored. * Plan of Care - Leanna Baltazar - 08/06/2024 4:34 PM CDT Goals: Clinical Goals for the Shift: VSS, pain managed per patients goal, OOBTC for meals, accurate I&Os [employer] Patient Centered Goal for Treatment: snf vs rehab Summary: AOx4, VSS. C/o generalized pain - prn and scheduled medication managed pts pain per his goal. OOBTC for approx 2 hours. Updated son, Gil, via phone. Problem: Activity Goal: Patient's tolerance of increased activity will improve Outcome: Progressing Goal: Patient will maintain or regain ADL function Outcome: Progressing Goal: Ability to avoid complications of mobility impairment will improve Outcome: Progressing Problem: Coping Goal: Ability to verbalize positive feelings about self will improve Outcome: Progressing Goal: Ability to adjust to condition or change in health will improve Outcome: Progressing Problem: Fluid Volume Goal: Will regain or maintain balanced intake and output Outcome: Progressing * Assessment & Plan Note - Va Griffith NP - 08/06/2024 10:34 AM CDT Associated Problem(s): DM2 (diabetes mellitus, type 2) (HCC) - Home regimen: Lantus 90 units - 9/6 A1C 7.5 - Lantus 35 units + SSI with low glucoses, will hold lantus and use SSI only for now Restart Lyrica for neuropathy (200 BID at home) * Assessment & Plan Note - Va Griffith NP - 08/06/2024 10:31 AM CDT Associated Problem(s): Bradycardia S/P PPM placed on 08/04 Wires out Continue telemetry montioring * Assessment & Plan Note - Va Griffith NP - 08/06/2024 10:31 AM CDT Associated Problem(s): Complete heart block (CMS/HCC) (HCC) EP consulted S/P PPM placed on 08/04 Wires out Continue telemetry montioring * Assessment & Plan Note - Va Griffith NP - 08/06/2024 10:31 AM CDT Associated Problem(s): Coronary artery disease due to calcified coronary lesion 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 Patient wore briefly but was unable to tolerate . Plan: Will check back at a later time to see if patient is ready to wear their NPPV. * Plan of Care - Brandyn Dwyer RN - 08/06/2024 1:10 AM CDT Problem: Activity Goal: Patient's tolerance of increased activity will improve Outcome: Progressing Goal: Patient will maintain or regain ADL function Outcome: Progressing Goal: Ability to avoid complications of mobility impairment will improve Outcome: Progressing Problem: Coping Goal: Ability to verbalize positive feelings about self will improve Outcome: Progressing Goal: Ability to adjust to condition or change in health will improve Outcome: Progressing Problem: Fluid Volume Goal: Will regain or maintain balanced intake and output Outcome: Progressing Problem: Lack of Knowledge Goal: Patient's knowledge of postoperative course will improve Outcome: Progressing Problem: Sensory (Pain) Goal: Pain levels will decrease Outcome: Progressing Problem: Skin Integrity Goal: Wound appearance will improve during the postoperative course Outcome: Progressing Problem: Fall Risk Goal: Ability to state ways to decrease the risk of falls will improve Outcome: Progressing Goal: Will remain free from falls Outcome: Progressing Goal: Will remain free from injury from falls Outcome: Progressing Problem: Medication Goal: Satisfaction with pain management medication regimen will improve Outcome: Progressing Problem: Discharge Planning Goal: Understanding discharge needs will improve Outcome: Progressing Problem: Neurosensory Goal: Achieves stable or improved neurological status Outcome: Progressing Problem: Musculoskeletal Goal: Return mobility to safest level of function Outcome: Progressing Problem: Gastrointestinal Goal: Minimal or absence of nausea and vomiting Outcome: Progressing Goals: Clinical Goals for the Shift: VSS, pain managed at patient's goal, free from skin breakdown, free from falls or injury [employer] Patient Centered Goal for Treatment: snf vs rehab Summary: patient is monitored for labs and vital signs. Pain being managed. * Assessment & Plan Note - Mayi Richardson NP - 08/05/2024 4:04 PM CDTAssociated Problem(s): Complete heart block (CMS/HCC) (HCC) EP consulted S/P PPM placed on 08/04 DC temporary pacing wires today Continue telemetry montioring * Assessment & Plan Note - Mayi Richardson NP - 08/05/2024 4:04 PM CDTAssociated Problem(s): Bradycardia S/P PPM placed on 08/04 DC temporary pacing wires today Continue telemetry montioring * Plan of Care - Leanna Baltazar - 08/05/2024 3:48 PM CDT Goals: Clinical Goals for the Shift: VSS, pain managed at patient's goal, free from skin breakdown, free from falls or injury [employer] Patient Centered Goal for Treatment: snf vs rehab Summary: AOx4, VSS, on RA. C/o generalized discomforts, managed by current scheduled medications. Temporary pacer wires removed. Castro removed. Q2h turns. Poor appetite, declining ensure supplements Problem: Coping Goal: Ability to verbalize positive feelings about self will improve Outcome: Progressing Goal: Ability to adjust to condition or change in health will improve Outcome: Progressing Problem: Activity Goal: Patient's tolerance of increased activity will improve Outcome: Progressing Goal: Patient will maintain or regain ADL function Outcome: Progressing Goal: Ability to avoid complications of mobility impairment will improve Outcome: Progressing Problem: Lack of Knowledge Goal: Patient's knowledge of postoperative course will improve Outcome: Progressing Problem: Nutrition Goal: Patient's nutritional status will improve Outcome: Progressing Goal: Patient's ability to achieve adequate nutrition will improve Outcome: Progressing * Assessment & Plan Note - Mayi Richardson NP - 08/05/2024 2:24 PM CDTAssociated Problem(s): Coronary artery disease due to calcified coronary lesion S/p CABG x3 with sternal plating PT/OT Aggressive Pulmonary toilet Dc temporary wires today Cts out Dc castro for void trial today * Significant Event - Reina Ellis MD - 08/05/2024 7:11 AM CDT Images from the original note were not included. Cardiology Electrophysiology Post Procedure Note Patient: Abiel Fink : 1950 [74 y.o.] Device: Medtronic CRTD Placement Date: 08/04/2024 Implanter: Dr. Meyer Indication: Ischemic cardiomyopathy with complete heart block Patient doing well this morning post procedure. Alert, oriented, and with mild soreness at incisionsite. Currently feels well and does not endorse any dyspnea, palpitations, or chest pain/pressure. Dressings were removed from left anterior chest wall subclavian incision site. Steristrips left in place. Exam: no warmth appreciated; no firmness or hematoma appreciated; incision well approximated with no active drainage; able to palpate device; no fluctuance noted Telemetry: , BiV paced rhythm Interogation: no concerns with appropriate device function CXR: Pending 2 views Patient Instructions [copy into discharge instructions] First 7 days: No showering [keep wound dry] Do NOT cover site For 2 weeks: No driving For 6 weeks: sling at night but use gentle arm use during daytime to prevent frozen shoulder no lifting of the elbow above the shoulder no heavy lifting [10+ pounds] Precautions: notify the office should swelling occur at incision site or any active drainage appear. Patient verbalized understanding of the above and will follow-up with EP. Please send patient out on Keflex 500mg po BID x 7days. Antibiotics While inpatient, continue IV vancomycin 1g daily and send out on Keflex at discharge . Activity Rest today, increase activity tomorrow as tolerated, except as above Do not drink alcoholic beverages, drive or operate hazardous machinery for 24 hours Additional Instructions Red folder given to patient with verbalization of the written instructions. Extra Strength Tylenol may be taken every 6 hours as needed for pain. Notify the physician office at [phone] immediately if you develop abrupt pain or swelling. If you feel there is an urgent matter, call 911 or go to the emergency room. Call the office at [phone] with any routine questions or concerns. If you are unable to reach your doctor please call [facility] marketing information manager at [phone]. He or she will contact the physician on the Electrophysiology service to assist you. Patient verbalized understanding and will follow-up with EP as scheduled. Reina Ellis MD Fellow Physician, Electrophysiology Cardiovascular Division, [facility] in [place] 08/05/2024, 7:12 AM Cosigned by Lucy Meyer MD at 08/05/2024 10:44 AM CDT * Plan of Care - Javier Pop RRT - 08/05/2024 1:04 AM CDT NPPV - STANDBY Situation: The patient was ordered on NPPV for Obstructive Sleep Apnea (JACQUELINE). Patient wore briefly but was unable to tolerate . Plan: Will check back at a later time to see if patient is ready to wear their NPPV. * Plan of Care - Brandyn Dwyer RN - 08/04/2024 11:46 PM CDT Problem: Activity Goal: Patient's tolerance of increased activity will improve Outcome: Progressing Goal: Patient will maintain or regain ADL function Outcome: Progressing Goal: Ability to avoid complications of mobility impairment will improve Outcome: Progressing Problem: Coping Goal: Ability to verbalize positive feelings about self will improve Outcome: Progressing Goal: Ability to adjust to condition or change in health will improve Outcome: Progressing Problem: Fluid Volume Goal: Will regain or maintain balanced intake and output Outcome: Progressing Problem: Lack of Knowledge Goal: Patient's knowledge of postoperative course will improve Outcome: Progressing Problem: Physical Regulation Goal: Ability to maintain clinical measurements within normal limits will improve Outcome: Progressing Goal: Complications related to the surgical procedure will be minimized or avoided Outcome: Progressing Goal: Ability to maintain adequate cardiac output will improve Outcome: Progressing Goal: Will maintain patent airway Outcome: Progressing Goal: Gastrointestinal status for postoperative course will improve Outcome: Progressing Goal: Postoperative complications of an ostomy will be minimized or avoided Outcome: Progressing Goal: Ability to re-establish a normal urinary elimination pattern will improve Outcome: Progressing Problem: Skin Integrity Goal: Wound appearance will improve during the postoperative course Outcome: Progressing Problem: Fall Risk Goal: Ability to state ways to decrease the risk of falls will improve Outcome: Progressing Goal: Will remain free from falls Outcome: Progressing Goal: Will remain free from injury from falls Outcome: Progressing Problem: Lack of Knowledge Goal: Ability to develop a pain control plan will improve Outcome: Progressing Goals: Clinical Goals for the Shift: PPM, OOBTC, rehab Summary: patient is recovering from pacemaker placement. * Hospital Course - Va Griffith NP - 08/04/2024 2:38 PM CDT 74 y.o. yo male w/ PMHx of [...] RCA subtotal occlusion. He was referred to [facility] for surgical management. Mr. Fink was taken to the operating room on 07/24/24 for CABG x 3 (BURGESS to LAD, left radial to OM, SVG to PDA and sternal plating by Dr. Quan. The patient was taken to the intensive care unit postoperatively in stable condition. CABG x 3 (BURGESS to LAD, left radial to OM, SVG to PDA and sternal plating. Inhaled Veletri was added for worsening RV dysfunction. Unable to wean Veletri d/t increasing PA pressures, a Bumex gtt was started and Dobutamine was switched to Epinephrine. Following significant diuresis, Veletri and Epinephrine were successfully weaned. When hemodynamically stable, he was weaned from ventilatory support. ECG monitoring showed a persistent AV block. Electrophysiology was consulted. The rhythm was determined to be complete heart block. He was supported utilizing epicardial pacer wires. He was taken to the EP lab on 08/04/24 for PPMimplantation (Medtronic TOLL TEST DESK WORKER-D with EP (DDD 60-100). Post pacemaker implantation, he was transferredto the stepdown unit in stable condition. The newly implanted device was interrogated and found to be fully functional. Chest tubes and pacing wires were discontinued without difficulty. Aggressive physical therapy and pulmonary toilet were initiated. The patient progressed as expected. His diet was advanced as tolerated. His wounds remained clean, dry and intact. EP Signed off: Device: Medtronic CRTD Placement Date: 08/04/2024 Implanter: Dr. Meyer Indication: Ischemic cardiomyopathy with complete heart block Patient doing well this morning post procedure. Alert, oriented, and with mild soreness at incisionsite. Currently feels well and does not endorse any dyspnea, palpitations, or chest pain/pressure. Dressings were removed from left anterior chest wall subclavian incision site. Steristrips left in place. Exam: no warmth appreciated; no firmness or hematoma appreciated; incision well approximated with no active drainage; able to palpate device; no fluctuance noted Telemetry: , BiV paced rhythm Interogation: no concerns with appropriate device function CXR: Pending 2 views Patient Instructions [copy into discharge instructions] First 7 days: No showering [keep wound dry] Do NOT cover site For 2 weeks: No driving For 6 weeks: sling at night but use gentle arm use during daytime to prevent frozen shoulder no lifting of the elbow above the shoulder no heavy lifting [10+ pounds] Precautions: notify the office should swelling occur at incision site or any active drainage appear. Patient verbalized understanding of the above and will follow-up with EP. Please send patient out on Keflex 500mg po BID x 7days. Antibiotics While inpatient, continue IV vancomycin 1g daily and send out on Keflex at discharge . Activity Rest today, increase activity tomorrow as tolerated, except as above Do not drink alcoholic beverages, drive or operate hazardous machinery for 24 hours Additional Instructions Red folder given to patient with verbalization of the written instructions. Extra Strength Tylenol may be taken every 6 hours as needed for pain. Notify the physician office at [phone] immediately if you develop abrupt pain or swelling. If you feel there is an urgent matter, call [phone] or go to the emergency room. Call the office at [phone] with any routine questions or concerns. If you are unable to reach your doctor please call [facility] marketing information manager at [phone]. He or she will contact the physician on the Electrophysiology service to assist you. Patient verbalized understanding and will follow-up with EP as scheduled. * Plan of Care - Yue Estrada RN - 08/04/2024 1:58 PM CDT Goals: PPM Summary: PPM, TTF @ 1400 Problem: Activity Goal: Patient's tolerance of increased activity will improve Outcome: Not Progressing Goal: Patient will maintain or regain ADL function Outcome: Not Progressing Goal: Ability to avoid complications of mobility impairment will improve Outcome: Not Progressing Problem: Coping Goal: Ability to verbalize positive feelings about self will improve Outcome: Not Progressing Goal: Ability to adjust to condition or change in health will improve Outcome: Not Progressing Problem: Fluid Volume Goal: Will regain or maintain balanced intake and output Outcome: Not Progressing Problem: Lack of Knowledge Goal: Patient's knowledge of postoperative course will improve Outcome: Not Progressing Problem: Nutrition Goal: Patient's nutritional status will improve Outcome: Not Progressing Goal: Patient's ability to achieve adequate nutrition will improve Outcome: Not Progressing Problem: Physical Regulation Goal: Ability to maintain clinical measurements within normal limits will improve Outcome: Not Progressing Goal: Complications related to the surgical procedure will be minimized or avoided Outcome: Not Progressing Goal: Ability to maintain adequate cardiac output will improve Outcome: Not Progressing Goal: Will maintain patent airway Outcome: Not Progressing Goal: Gastrointestinal status for postoperative course will improve Outcome: Not Progressing Goal: Postoperative complications of an ostomy will be minimized or avoided Outcome: Not Progressing Goal: Ability to re-establish a normal urinary elimination pattern will improve Outcome: Not Progressing Problem: Sensory (Pain) Goal: Pain levels will decrease Outcome: Not Progressing Problem: Skin Integrity Goal: Wound appearance will improve during the postoperative course Outcome: Not Progressing Problem: Fall Risk Goal: Ability to state ways to decrease the risk of falls will improve Outcome: Not Progressing Goal: Will remain free from falls Outcome: Not Progressing Goal: Will remain free from injury from falls Outcome: Not Progressing Problem: Skin Integrity Impairment Risk Goal: Mobility will improve Outcome: Not Progressing Goal: Understanding of ways to prevent future skin breakdown will improve Outcome: Not Progressing Goal: Nutritional status will improve Outcome: Not Progressing Goal: Risk for impaired skin integrity will decrease Outcome: Not Progressing Problem: Lack of Knowledge Goal: Ability to develop a pain control plan will improve Outcome: Not Progressing Problem: Medication Goal: Satisfaction with pain management medication regimen will improve Outcome: Not Progressing Problem: Sensory Goal: Ability to identify factors that increase pain levels will improve while working to decrease the patient's pain levels Outcome: Not Progressing Problem: Coping Goal: Ability to cope will improve Outcome: Not Progressing Problem: Health Behavior Goal: Identification of resources available to assist in meeting health care needs will improve Outcome: Not Progressing Problem: Discharge Planning Goal: Understanding discharge needs will improve Outcome: Not Progressing Problem: Neurosensory Goal: Achieves stable or improved neurological status Outcome: Not Progressing Problem: Respiratory Goal: Achieves optimal ventilation and oxygenation Outcome: Not Progressing Goal: Ability to maintain a clear airway will improve Outcome: Not Progressing Problem: Cardiovascular Goal: Maintains optimal cardiac output and hemodynamic stability Outcome: Not Progressing Problem: Skin/Tissue Integrity Goal: Skin integrity remains intact Outcome: Not Progressing Problem: Musculoskeletal Goal: Return mobility to safest level of function Outcome: Not Progressing Problem: Gastrointestinal Goal: Minimal or absence of nausea and vomiting Outcome: Not Progressing Problem: Genitourinary Goal: Urinary catheter remains patent Outcome: Not Progressing Problem: Infection Goal: Absence of infection during hospitalization Outcome: Not Progressing Problem: Metabolic/Fluid and Electrolytes Goal: Electrolytes maintained within normal limits Outcome: Not Progressing Problem: Hematologic Goal: Maintains hematologic stability Outcome: Not Progressing * Significant Event - Asya Brandon MD - 08/04/2024 10:46 AM CDT Brief EP Post-Procedure Note 10:46 AM 08/04/24 Patient ID: Abiel Fink is a 74 y.o. year old man who is now status post implantation of L sided Medtronic TOLL TEST DESK WORKER-D for AVB and primary prevention with Dr. Meyer. Implantation was uncomplicated. Patient will be admitted for observation. Post-procedure instructions: - Strict bedrest for 3 hours - Bedrest with exceptions (up with assistance for bathroom privileges) for overnight - No heparin products (heparin or enoxaparin) due to risk of pocket hematoma - Anticoagulation plan: none - ABX prophylaxis: s/p perioperative 1g IV vancomycin, continue IV vancomycin for 24 hours, alreadyordered - CXR immediately post procedure is pending - Please repeat 2-view CXR (PA/lateral) tomorrow morning, ordered - L arm precautions - sleep with sling, no reaching overhead, no bearing weight >10lbs - Keep clear dressing applied overnight - Will evaluate patient tomorrow morning with tentative plans for discharge Asya Brandon MD Electrophysiology Fellow, PGY-7 * Plan of Care - Surendra Allan RRT - 08/04/2024 5:26 AM CDT NPPV - PATIENT WORE Situation: The patient was ordered on NPPV for nocturnal use due to a history of Obstructive Sleep Apnea (JACQUELINE). Patient was placed on their home NPPV machine. Settings: NPPV Mode: CPAP EPAP Pressure: 7 cm H20. Tolerance: The patient tolerated the NPPV without issue. Plan: Proceed as ordered and continue to monitor the patient. * Significant Event - Leonor Duncan MD - 08/03/2024 3:00 PM CDT Brief EP Note: Patient added to EP procedure list for tomorrow. Recommend repeat limited TTE to re-eval LVEF for device planning purposes. Ideally we could have TTE results this afternoon or first thing tomorrow morning. Plan for TOLL TEST DESK WORKER-P pending repeat limited echo. Please make patient NPO at midnight. The above has been discussed with primary team. Leonor Duncan MD Cosigned by Lucy Meyer MD at 08/04/2024 5:17 AM CDT Associated attestation - Lucy Meyer MD - 08/04/2024 5:17 AM CDT 1) CAD -Symptoms of GARCÍA -s/p CABG BURGESS-LAD, left radial-OM, SVG-PDA) 07/24/2024 2) AV block -History of second degree AV block, CHB post op 3) ICM -LVEF 40-50% pre op, with RV dysfunction (EMILE) -TTE 08/03/2024 with LVEF of 26% and likely normal RV 4) Mitral regurgitation -Mod MR pre-op -TTE 08/03/2024 mod MR 5) HTN 6) DM Given CHB and LVEF 26%, discussed with patient TOLL TEST DESK WORKER-P vs TOLL TEST DESK WORKER-D given ICM with LVEF less than 35%, patient agreed to proceed with TOLL TEST DESK WORKER-D. * Plan of Care - Yue Estrada RN - 08/03/2024 11:19 AM CDT Goals: Clinical Goals for the Shift: PPM, OOBTC, rehab Summary: Problem: Activity Goal: Patient's tolerance of increased activity will improve Outcome: Ongoing Goal: Patient will maintain or regain ADL function Outcome: Ongoing Goal: Ability to avoid complications of mobility impairment will improve Outcome: Ongoing Problem: Coping Goal: Ability to verbalize positive feelings about self will improve Outcome: Ongoing Goal: Ability to adjust to condition or change in health will improve Outcome: Ongoing Problem: Fluid Volume Goal: Will regain or maintain balanced intake and output Outcome: Ongoing Problem: Lack of Knowledge Goal: Patient's knowledge of postoperative course will improve Outcome: Ongoing Problem: Nutrition Goal: Patient's nutritional status will improve Outcome: Ongoing Goal: Patient's ability to achieve adequate nutrition will improve Outcome: Ongoing Problem: Physical Regulation Goal: Ability to maintain clinical measurements within normal limits will improve Outcome: Ongoing Goal: Complications related to the surgical procedure will be minimized or avoided Outcome: Ongoing Goal: Ability to maintain adequate cardiac output will improve Outcome: Ongoing Goal: Will maintain patent airway Outcome: Ongoing Goal: Gastrointestinal status for postoperative course will improve Outcome: Ongoing Goal: Postoperative complications of an ostomy will be minimized or avoided Outcome: Ongoing Goal: Ability to re-establish a normal urinary elimination pattern will improve Outcome: Ongoing Problem: Sensory (Pain) Goal: Pain levels will decrease Outcome: Ongoing Problem: Skin Integrity Goal: Wound appearance will improve during the postoperative course Outcome: Ongoing Problem: Fall Risk Goal: Ability to state ways to decrease the risk of falls will improve Outcome: Ongoing Goal: Will remain free from falls Outcome: Ongoing Goal: Will remain free from injury from falls Outcome: Ongoing Problem: Skin Integrity Impairment Risk Goal: Mobility will improve Outcome: Ongoing Goal: Understanding of ways to prevent future skin breakdown will improve Outcome: Ongoing Goal: Nutritional status will improve Outcome: Ongoing Goal: Risk for impaired skin integrity will decrease Outcome: Ongoing Problem: Lack of Knowledge Goal: Ability to develop a pain control plan will improve Outcome: Ongoing Problem: Medication Goal: Satisfaction with pain management medication regimen will improve Outcome: Ongoing Problem: Sensory Goal: Ability to identify factors that increase pain levels will improve while working to decrease the patient's pain levels Outcome: Ongoing Problem: Coping Goal: Ability to cope will improve Outcome: Ongoing Problem: Health Behavior Goal: Identification of resources available to assist in meeting health care needs will improve Outcome: Ongoing Problem: Discharge Planning Goal: Understanding discharge needs will improve Outcome: Ongoing Problem: Neurosensory Goal: Achieves stable or improved neurological status Outcome: Ongoing Problem: Respiratory Goal: Achieves optimal ventilation and oxygenation Outcome: Ongoing Goal: Ability to maintain a clear airway will improve Outcome: Ongoing Problem: Cardiovascular Goal: Maintains optimal cardiac output and hemodynamic stability Outcome: Ongoing Problem: Skin/Tissue Integrity Goal: Skin integrity remains intact Outcome: Ongoing Problem: Musculoskeletal Goal: Return mobility to safest level of function Outcome: Ongoing Problem: Gastrointestinal Goal: Minimal or absence of nausea and vomiting Outcome: Ongoing Problem: Genitourinary Goal: Urinary catheter remains patent Outcome: Ongoing Problem: Infection Goal: Absence of infection during hospitalization Outcome: Ongoing Problem: Metabolic/Fluid and Electrolytes Goal: Electrolytes maintained within normal limits Outcome: Ongoing Problem: Hematologic Goal: Maintains hematologic stability Outcome: Ongoing * Plan of Care - Surendra Allan RRT - 08/03/2024 5:33 AM CDT NPPV - PATIENT WORE Situation: The patient was ordered on NPPV for nocturnal use due to a history of Obstructive Sleep Apnea (JACQUELINE). Patient was placed on their hospital provided NPPV machine. Settings: NPPV Mode: CPAP EPAP Pressure: 7 cm H20 FIO2: 21 %. Tolerance: The patient tolerated the NPPV without issue. Plan: Proceed as ordered and continue to monitor the patient. * Plan of Care - Surendra Allan RRT - 08/02/2024 7:12 AM CDT NPPV - PATIENT WORE Situation: The patient was ordered on NPPV for nocturnal use due to a history of Obstructive Sleep Apnea (JACQUELINE). Patient was placed on their hospital provided NPPV machine. Settings: NPPV Mode: CPAP EPAP Pressure: 7 cm H20 FIO2: 21 %. Tolerance: The patient tolerated the NPPV without issue. Plan: Proceed as ordered and continue to monitor the patient. * Plan of Care - Chuckie Mccallum RN - 08/01/2024 8:53 PM CDT Problem: Activity Goal: Patient's tolerance of increased activity will improve Outcome: Progressing Goal: Patient will maintain or regain ADL function Outcome: Progressing Goal: Ability to avoid complications of mobility impairment will improve Outcome: Progressing Problem: Coping Goal: Ability to verbalize positive feelings about self will improve Outcome: Progressing Goal: Ability to adjust to condition or change in health will improve Outcome: Progressing Problem: Fluid Volume Goal: Will regain or maintain balanced intake and output Outcome: Progressing Problem: Lack of Knowledge Goal: Patient's knowledge of postoperative course will improve Outcome: Progressing Goals: Clinical Goals for the Shift: hemodynamic stability; pain control; increase mobility; pulm hygiene Summary:Pain management, vitals, I/O * Plan of Care - Claudia Dimas RN - 08/01/2024 6:38 PM CDT Goals: Clinical Goals for the Shift: hemodynamic stability; pain control; increase mobility; pulm hygiene Summary: blood pressure goals maintained; pt denies pain at this time; bed placed in chair positionx2 hours; used aerobika Problem: Activity Goal: Patient's tolerance of increased activity will improve Outcome: Ongoing Goal: Patient will maintain or regain ADL function Outcome: Ongoing Goal: Ability to avoid complications of mobility impairment will improve Outcome: Ongoing Problem: Coping Goal: Ability to verbalize positive feelings about self will improve Outcome: Ongoing Goal: Ability to adjust to condition or change in health will improve Outcome: Ongoing Problem: Fluid Volume Goal: Will regain or maintain balanced intake and output Outcome: Ongoing Problem: Lack of Knowledge Goal: Patient's knowledge of postoperative course will improve Outcome: Ongoing Problem: Nutrition Goal: Patient's nutritional status will improve Outcome: Ongoing Goal: Patient's ability to achieve adequate nutrition will improve Outcome: Ongoing Problem: Physical Regulation Goal: Ability to maintain clinical measurements within normal limits will improve Outcome: Ongoing Goal: Complications related to the surgical procedure will be minimized or avoided Outcome: Ongoing Goal: Ability to maintain adequate cardiac output will improve Outcome: Ongoing Goal: Will maintain patent airway Outcome: Ongoing Goal: Gastrointestinal status for postoperative course will improve Outcome: Ongoing Goal: Postoperative complications of an ostomy will be minimized or avoided Outcome: Ongoing Goal: Ability to re-establish a normal urinary elimination pattern will improve Outcome: Ongoing Problem: Sensory (Pain) Goal: Pain levels will decrease Outcome: Ongoing Problem: Skin Integrity Goal: Wound appearance will improve during the postoperative course Outcome: Ongoing Problem: Fall Risk Goal: Ability to state ways to decrease the risk of falls will improve Outcome: Ongoing Goal: Will remain free from falls Outcome: Ongoing Goal: Will remain free from injury from falls Outcome: Ongoing Problem: Skin Integrity Impairment Risk Goal: Mobility will improve Outcome: Ongoing Goal: Understanding of ways to prevent future skin breakdown will improve Outcome: Ongoing Goal: Nutritional status will improve Outcome: Ongoing Goal: Risk for impaired skin integrity will decrease Outcome: Ongoing Problem: Lack of Knowledge Goal: Ability to develop a pain control plan will improve Outcome: Ongoing Problem: Medication Goal: Satisfaction with pain management medication regimen will improve Outcome: Ongoing Problem: Sensory Goal: Ability to identify factors that increase pain levels will improve while working to decrease the patient's pain levels Outcome: Ongoing Problem: Coping Goal: Ability to cope will improve Outcome: Ongoing Problem: Health Behavior Goal: Identification of resources available to assist in meeting health care needs will improve Outcome: Ongoing Problem: Discharge Planning Goal: Understanding discharge needs will improve Outcome: Ongoing Problem: Neurosensory Goal: Achieves stable or improved neurological status Outcome: Ongoing Problem: Respiratory Goal: Achieves optimal ventilation and oxygenation Outcome: Ongoing Goal: Ability to maintain a clear airway will improve Outcome: Ongoing Problem: Cardiovascular Goal: Maintains optimal cardiac output and hemodynamic stability Outcome: Ongoing Problem: Skin/Tissue Integrity Goal: Skin integrity remains intact Outcome: Ongoing Problem: Musculoskeletal Goal: Return mobility to safest level of function Outcome: Ongoing Problem: Gastrointestinal Goal: Minimal or absence of nausea and vomiting Outcome: Ongoing Problem: Genitourinary Goal: Urinary catheter remains patent Outcome: Ongoing Problem: Infection Goal: Absence of infection during hospitalization Outcome: Ongoing Problem: Metabolic/Fluid and Electrolytes Goal: Electrolytes maintained within normal limits Outcome: Ongoing * Consults, Subsequent - Leonor Duncan MD - 08/01/2024 4:20 PM CDT Cardiology Daily Progress Note - Electrophysiology Chief complaint: Bradycardia Interval History: EKG of underlying rhythm showing complete heart block. Objective Vital Signs: 24hr Min/Max: Temp Min: 36.5 ??C (97.7 ??F) Max: 37 ??C (98.6 ??F) Pulse Min: 90 Max: 105 BP Min: 86/52 Max: 86/52 Resp Min: 12 Max: 21 SpO2 Min: 98 % Max: 100 % Most Recent: Vitals: 08/01/24 1601 BP: Pulse: Resp: Temp: SpO2: 100% Intake/Output: Intake/Output Summary (Last 24 hours) at 08/01/2024 1620 Last data filed at 08/01/2024 1600 Gross per 24 hour Intake 668 ml Output 3135 ml Net -2467 ml Physical Exam: General appearance: no acute distress HEENT: NCAT, MMM, anicteric Lungs: CTAB, no w/r/r, non-labored Heart: Paced 90 BPM on DDD, S1, S2 normal, no murmur, rub or gallop. JVP not elevated, no LE edema.Sternotomy scar in place Abdomen: soft, NT/ND; bowel sounds normal Extremities: extremities normal, warm and well-perfused, equal pulses Skin: warm and dry Neurologic: No abnormal movements, non-focal exam Psych: Normal mood and affect Current Medications: Current Facility-Administered Medications: aspirin chewable tablet 81 mg, 81 mg, oral, Daily, 81 mg at 08/01/24 0938 atorvastatin (LIPITOR) tablet 40 mg, 40 mg, oral, Daily, 40 mg at 08/01/24 0937 clopidogreL (PLAVIX) tablet 75 mg, 75 mg, oral, Daily, 75 mg at 07/31/24 0839 dextrose gel in packet 15 g, 15 g, oral, Q15 Min PRN OR dextrose (D10W) 10% bolus 250 mL, 250 mL, intravenous, Q[address] (CYMBALTA) extended release capsule 60 mg, 60 mg, oral, Nightly, 60 mg at 07/31/242025 glucagon injection 1 mg, 1 mg, intramuscular, Q30 Min PRN heparin 5,000 unit/mL injection 5,000 Units, 5,000 Units, subcutaneous, Q8H HILDA, 5,000 Units at 08/01/24 1613 hydrOXYzine (ATARAX) tablet 25 mg, 25 mg, oral, QID PRN, 25 mg at 07/29/242034 [START ON 08/02/2024] insulin glargine (LANTUS, SEMGLEE) 100 unit/mL injection 40 Units, 40 Units, subcutaneous, QAM insulin lispro (HumaLOG, ADMELOG) 100 unit/mL injection 0-10 Units, 0-10 Units, subcutaneous, TID with meals, 2 Units at 07/30/241706 insulin lispro (HumaLOG, ADMELOG) 100 unit/mL injection 0-5 Units, 0-5 Units, subcutaneous, Nightly, 1 Units at 07/31/242025 isosorbide mononitrate ER (IMDUR) extended release tablet 15 mg, 15 mg, oral, Daily, 15 mg at 08/01/24 09 Lactated Ringer's (LR) infusion, 10 mL/hr, intravenous, Continuous, Stopped at 07/30/24 0213 methocarbamoL (ROBAXIN) tablet 500 mg, 500 mg, oral, TID, 500 mg at 08/01/24 0942 ondansetron (ZOFRAN) injection 4 mg, 4 mg, intravenous, Q6H PRN oxyCODONE (ROXICODONE) tablet 5 mg, 5 mg, oral, Q4H PRN, 5 mg at 08/01/[address] (PROTONIX) extended release tablet 40 mg, 40 mg, oral, Daily, 40 mg at 08/01/24 0937 potassium chloride 20 mEq/50 mL in sterile water (premix) 20 mEq, 20 mEq, intravenous, Q1H PRN, Last Rate: 25 mL/hr at 07/29/24 1747, 20 mEq at 07/29/24 174 QUEtiapine (SEROquel) tablet 100 mg, 100 mg, oral, Nightly, 100 mg at 07/31/242024 senna (SENOKOT) tablet 1 tablet, 1 tablet, oral, BID, 1 tablet at 07/29/24 0916 OR [DISCONTINUED] senna 1.76 mg/mL syrup 8.8 mg, 8.8 mg, feeding tube, BID sodium chloride 0.9% solution, 3-12 mL/hr, intra-catheter, Continuous, Last Rate: 6 mL/hr at 08/01/24 1300, 6 mL/hr at 08/01/24 1300 Lab/Radiology/Diagnostic Review: Labs: Recent Labs Lab Units 07/31/24231507/30/24 2339 07/30/24 0101 07/29/24 0031 07/28/24 0003 HEMOGLOBIN g/dL 7.4* 7.3* 7.6* 7.7* 8.1* HEMATOCRIT % 24.4* 23.5* 24.4* 24.0* 25.5* WBC K/cumm 5.6 4.0 3.8 4.2 8.6 PLATELETS K/cumm 121* 91* 72* 67* 75* Recent Labs Lab Units 07/31/24231507/30/24233807/30/24 1213 07/30/24 0101 07/29/24 0031 07/28/24 0003 SODIUM mmol/L 144 148* < > 150* 147* 145 POTASSIUM PLASMA mmol/L 3.9 3.3 < > 3.6 3.8 3.9 CHLORIDE mmol/L 109 109 < > 107 105 105 CO2 mmol/L 25 30 < > 34* 31 30 ANIONGAP mmol/L 10 9 < > 9 11 10 BUN SERUM mg/dL 46* 56* < > 56* 55* 47* CREATININE mg/dL 1.06 1.20 < > 1.39* 1.23 1.12 CALCIUM mg/dL 8.1* 8.5 < > 9.2 8.9 8.8 MAGNESIUM mg/dL 2.1 2.1 -- 2.0 1.9 1.8 < > = values in this interval not displayed. Recent Labs Lab Units 07/31/2442107/30/24233807/30/24 0748 PH ART 7.44 7.44 7.46* PCO2 ART mmHg 39 38 42 PO2 ART mmHg 114* 114* 148* BASE EXC ART mmol/L 2 2 5 Cultures: No results found for: MICROBIOLOGY Assessment/Plan Abiel Fink is a 74 y.o. male with a history of hypertension, hyperlipidemia, CAD, 2nd degree AV block, moderate MR, type II DM, moderate RV dysfunction presenting with CABG x3 (BURGESS to LAD, left radial to OM, SVG to PDA). Electrophysiology has been consulted for bradycardia. Problem List #Complete Heart block #CAD s/p CABG x3 Patient presenting to hospital for CABG x3. Noted to have bradycardia with reduction in epicardial pacing. He is currently supported with DDD pacing mode. His pre-op ECG shows Mobitz I rhythm with PVCs and PACs and a rate of 46. EKG of underlying rhythm shows complete heart block. Recommendations: - Continue DDD pacing per primary team - We will discuss with patient about pacemaker implantation. Favor CRTP vs LBAP Thank you for allowing us to contribute to this patient's care, we will continue to follow. Leonor Duncan MD [employer] 4:20 PM 08/01/24 Cosigned by Blu Peacock MD at 08/01/2024 10:55 PM CDT Associated attestation - Blu Peacock MD - 08/01/2024 10:55 PM CDT Attending Documentation I have seen and examined the patient on 08/01/24. I agree with the findings and plan of care as documented in the resident's/fellow's note. Supplementary Attestation My total encounter time on this service date was 15 minutes which was spent performing a [id number] encounter and personally completing the provider-level activities documented in the note. This includes time spent prior to the visit and after the visit in direct care of the patient. This time does not include time spent in any separately reportable services. Symptomatic bradycardia due to complete heart block after CAB surgery on 07/24. He has a narrow junctional escape rhythm. LVEF 40-50% With his LVEF < 50%, I would favor a CRTP or a LBAP dual chamber pacing device. Will assess the availability of the EP lab and schedule this procedure once a staffed EP lab roomand anesthesia team are identified. Most likely next week. lBu Peacock MD 08/01/2024 10:54 PM * Plan of Care - Cindy Schmitz RRT - 08/01/2024 3:42 AM CDT NPPV - PATIENT WORE Situation: The patient was ordered on NPPV for nocturnal use due to a history of Obstructive Sleep Apnea (JACQUELINE). Patient was placed on their home NPPV machine. Settings: NPPV Mode: CPAP EPAP Pressure: 7 cm H20. Tolerance: The patient tolerated the NPPV without issue. Plan: Proceed as ordered and continue to monitor the patient. * Plan of Care - Chuckie Mccallum RN - 07/31/2024 9:35 PM CDT Problem: Activity Goal: Patient's tolerance of increased activity will improve Outcome: Progressing Goal: Patient will maintain or regain ADL function Outcome: Progressing Goal: Ability to avoid complications of mobility impairment will improve Outcome: Progressing Problem: Coping Goal: Ability to verbalize positive feelings about self will improve Outcome: Progressing Goal: Ability to adjust to condition or change in health will improve Outcome: Progressing Problem: Fluid Volume Goal: Will regain or maintain balanced intake and output Outcome: Progressing Problem: Lack of Knowledge Goal: Patient's knowledge of postoperative course will improve Outcome: Progressing Problem: Physical Regulation Goal: Ability to maintain clinical measurements within normal limits will improve Outcome: Progressing Goal: Complications related to the surgical procedure will be minimized or avoided Outcome: Progressing Goal: Ability to maintain adequate cardiac output will improve Outcome: Progressing Goal: Will maintain patent airway Outcome: Progressing Goal: Gastrointestinal status for postoperative course will improve Outcome: Progressing Goal: Postoperative complications of an ostomy will be minimized or avoided Outcome: Progressing Goal: Ability to re-establish a normal urinary elimination pattern will improve Outcome: Progressing Goals: Clinical Goals for the Shift: HDS; Speech eval; Up to chair; Work with PT/OT Summary: Pain management, vitals, I/O * Plan of Care - Lobito Presley RRT - 07/31/2024 12:06 AM CDT NPPV - PATIENT WORE Situation: The patient was ordered on NPPV for nocturnal use due to a history of Obstructive Sleep Apnea (JACQUELINE). Patient was placed on their home NPPV machine. Settings: NPPV Mode: CPAP EPAP Pressure: 7 cm H20. Tolerance: The patient tolerated the NPPV without issue. Plan: Proceed as ordered and continue to monitor the patient. * Plan of Care - Chuckie Mccallum RN - 07/30/2024 9:52 PM CDT Problem: Activity Goal: Patient's tolerance of increased activity will improve Outcome: Progressing Goal: Patient will maintain or regain ADL function Outcome: Progressing Goal: Ability to avoid complications of mobility impairment will improve Outcome: Progressing Problem: Coping Goal: Ability to verbalize positive feelings about self will improve Outcome: Progressing Goal: Ability to adjust to condition or change in health will improve Outcome: Progressing Problem: Fluid Volume Goal: Will regain or maintain balanced intake and output Outcome: Progressing Problem: Lack of Knowledge Goal: Patient's knowledge of postoperative course will improve Outcome: Progressing Goals: Clinical Goals for the Shift: HDS; up to chiar; wean epi Summary: Pain management, vitals, I/O * Plan of Care - Shalom Quintana RRT - 07/30/2024 11:25 AM CDT Toleration - Patient tolerated without issue.. Bronchial Hygiene Assessment Score - 16 Pulmonary Status Severe or Chronic with Exacerbation Surgical Status Thoracic with Pulmonary Disease Chest X-ray Infiltrates, Lung Mass, Atelectasis, Pleural Effusion Respiratory Pattern Regular, Respiratory Rate < 20 Mental Status Lethargic, Follows Commands Cough Strong, Productive Breath Sounds Decreased Bilaterllly Activity Level Ambulatory with Assistance O2 Requirement 1 to 3 Liters Pt Score Level Suggested Frequency 1-12 1 Turn to bedside for RN to encourage deep breath and cough, IS, or OOB - TID 13-24 2 Implement chosen bronchial hygiene mode with a suggested frequency of - TID 25-36 3 Implement chosen bronchial hygiene mode with a suggested frequency of - TID to Q4 hours Note: Score gives a general indication of pulmonary risk. Clinical judgement may yield a different recommended therapy or frequency. Plan - Per the bronchial hygiene protocol, the patient's therapy will continue as ordered * Plan of Care - Obdulia Lam RN - 07/30/2024 6:15 AM CDT Problem: Activity Goal: Patient's tolerance of increased activity will improve Outcome: Ongoing Flowsheets (Taken 07/30/2024612) Patient's tolerance of increased activity will improve: Implement and manage activity progression plan Encourage out of bed for meals Plan scheduling of activities for periods of rest Monitor signs of activity intolerance Encourage energy conservation techniques Encourage use of non-slip footwear Assess response to activities Identify limitations or barriers to activity and/or excercise Encourage participation in care Encourage use of assistive devices as needed Goal: Patient will maintain or regain ADL function Outcome: Ongoing Flowsheets (Taken 07/30/2024612) Patient will maintain or regain ADL function: Assist with ambulation aids Assist with ambulation Manage signs of lymphedema Collaborate with physical therapy and occupational therapy Encourage active range of motion Assist with independence of self-care activities Goal: Ability to avoid complications of mobility impairment will improve Outcome: Ongoing Flowsheets (Taken 07/30/2024612) Ability to avoid complications of mobility impairment will improve: Assist with passive range of motion Support strength training Evaluate gross motor skills Assist with proper use of assistive devices Monitor neurovascular status for signs of impaired circulation Provide appropriate assistance to ensure safe transfer Problem: Nutrition Goal: Patient's nutritional status will improve Outcome: Ongoing Flowsheets (Taken 07/30/2024612) Patient's nutritional status will improve: Provide medical nutrition consult (MNT) Provide postoperative nutritional progression Goal: Patient's ability to achieve adequate nutrition will improve Outcome: Ongoing Flowsheets (Taken 07/30/2024612) Patient's ability to achieve adequate nutrition will improve: Evaluate ability to swallow Assess speech status Monitor signs and symptoms of aspiration Discuss proper swallowing techniques Problem: Skin Integrity Goal: Wound appearance will improve during the postoperative course Outcome: Ongoing Problem: Fall Risk Goal: Ability to state ways to decrease the risk of falls will improve Outcome: Ongoing Flowsheets (Taken 07/30/2024612) Ability to state ways to decrease the risk of falls will improve: Teach fall prevention measures Teach information regarding appropriate enviornmental changes Goal: Will remain free from falls Outcome: Ongoing Flowsheets (Taken 07/30/2024612) Will remain free from falls: Assess risk factors for falls Implement fall prevention measures Collaborate with other disciplines Goal: Will remain free from injury from falls Outcome: Ongoing Flowsheets (Taken 07/30/2024612) Will remain free from injury from falls: Provide safe environment for conduction of activities of daily living in hospital environment Problem: Cardiovascular Goal: Maintains optimal cardiac output and hemodynamic stability Outcome: Ongoing Flowsheets (Taken 07/30/2024612) Maintain optimal cardiac output and hemodynamic Stability: Monitor vital signs, rhythm, and trends Monitor for bleeding, hypotension and signs of decreased cardiac output Administer and titrate ordered vasoactive medications to optimize hemodynamic stability Monitor arterial and/or venous puncture sites for bleeding and/or hematoma Assess quality of pulses, skin color and temperature Assess for signs of decreased coronary artery perfusion - ex. angina Monitor urine output and notify provider of values outside normal range Administer fluid and/or volume expanders as ordered Goals: Clinical Goals for the Shift: HDS, labs WNL, sleep hygeine, wean epi Summary: Pt slept total 3hrs. Urine output good. Multiple BMs. Q2 turn. * Plan of Care - Lobito Presley RRT - 07/30/2024 1:38 AM CDT NPPV - PATIENT WORE Situation: The patient was ordered on NPPV for nocturnal use due to a history of Obstructive Sleep Apnea (JACQUELINE). Patient was placed on their home NPPV machine. Settings: NPPV Mode: CPAP EPAP Pressure: 7 cm H20. Tolerance: The patient tolerated the NPPV without issue. Plan: Proceed as ordered and continue to monitor the patient. * Plan of Care - Lobito Presley, CHRISTY - 07/29/2024 9:02 PM CDT BRONCHIAL HYGIENE Situation - Patient ordered on Q6 Acapella (Aerobika). Toleration - Patient tolerated without issue.. Bronchial Hygiene Assessment Score - 16 Pulmonary Status Severe or Chronic with Exacerbation Surgical Status Thoracic with Pulmonary Disease Chest X-ray Infiltrates, Lung Mass, Atelectasis, Pleural Effusion Respiratory Pattern Regular, Respiratory Rate < 20 Mental Status Lethargic, Follows Commands Cough Strong, Productive Breath Sounds Decreased Bilaterllly Activity Level Ambulatory with Assistance O2 Requirement 1 to 3 Liters Pt Score Level Suggested Frequency 1-12 1 Turn to bedside for RN to encourage deep breath and cough, IS, or OOB - TID 13-24 2 Implement chosen bronchial hygiene mode with a suggested frequency of - TID 25-36 3 Implement chosen bronchial hygiene mode with a suggested frequency of - TID to Q4 hours Note: Score gives a general indication of pulmonary risk. Clinical judgement may yield a different recommended therapy or frequency. Plan - Per the bronchial hygiene protocol, the patient's therapy will stay the same but the frequency will decrease to TID. RCS will continue to monitor and assess. * Plan of Care - Lamar Lund, CHRISTY - 07/29/2024 6:32 AM CDT NPPV - REFUSED Situation: The patient was ordered on NPPV for Obstructive Sleep Apnea (JACQUELINE). RT attempted to place the patient on their home NPPV machine. The patient did not care to wear their NPPV device, and REFUSED to wear. Patient had been agitated and finally fell asleep while wearing nasal cannula. RN requested patient be left on cannula to avoid further agitation. Plan: Provide nightly encouragement and coaching of benefits related to the use of NPPV. * Plan of Care - Parveen Mojica RN - 07/29/2024 4:38 AM CDT Goals: Clinical Goals for the Shift: HDS, labs WNL, sleep hygeine, wean epi Problem: Activity Goal: Patient's tolerance of increased activity will improve Outcome: Progressing Goal: Patient will maintain or regain ADL function Outcome: Progressing Goal: Ability to avoid complications of mobility impairment will improve Outcome: Progressing Problem: Coping Goal: Ability to verbalize positive feelings about self will improve Outcome: Progressing Goal: Ability to adjust to condition or change in health will improve Outcome: Progressing Problem: Fluid Volume Goal: Will regain or maintain balanced intake and output Outcome: Progressing Problem: Lack of Knowledge Goal: Patient's knowledge of postoperative course will improve Outcome: Progressing Problem: Nutrition Goal: Patient's nutritional status will improve Outcome: Progressing Goal: Patient's ability to achieve adequate nutrition will improve Outcome: Progressing Problem: Physical Regulation Goal: Ability to maintain clinical measurements within normal limits will improve Outcome: Progressing Goal: Complications related to the surgical procedure will be minimized or avoided Outcome: Progressing Goal: Ability to maintain adequate cardiac output will improve Outcome: Progressing Goal: Will maintain patent airway Outcome: Progressing Goal: Gastrointestinal status for postoperative course will improve Outcome: Progressing Goal: Postoperative complications of an ostomy will be minimized or avoided Outcome: Progressing Goal: Ability to re-establish a normal urinary elimination pattern will improve Outcome: Progressing Problem: Sensory (Pain) Goal: Pain levels will decrease Outcome: Progressing Problem: Skin Integrity Goal: Wound appearance will improve during the postoperative course Outcome: Progressing Problem: Fall Risk Goal: Ability [...] skin integrity will decrease Outcome: Progressing Problem: Lack of Knowledge Goal: [...] care needs will improve Outcome: Progressing Problem: Discharge Planning Goal: Understanding discharge needs will improve Outcome: Progressing Problem: Neurosensory Goal: Achieves stable or improved neurological status Outcome: Progressing Problem: Respiratory Goal: Achieves optimal ventilation and oxygenation Outcome: Progressing Goal: Ability to maintain a clear airway will improve Outcome: Progressing Problem: Cardiovascular Goal: Maintains optimal cardiac output and hemodynamic stability Outcome: Progressing Problem: Skin/Tissue Integrity Goal: Skin integrity remains intact Outcome: Progressing Summary: Pt A&Ox2-3. C/O incisional pain. Pain med given prn. GARCÍA, cont. On oxygen at 4 L NC.. Cont on Epi and Bumex drips as ordered. VSS, afebrile. * Plan of Care - Jhon Pennington RN - 07/28/2024 6:22 PM CDT Goals: Clinical Goals for the Shift: I&O, wean veletri, VSS Problem: Activity Goal: Patient's tolerance of increased activity will improve Outcome: Progressing Problem: Nutrition Goal: Patient's nutritional status will improve Outcome: Progressing Problem: Physical Regulation Goal: Ability to maintain clinical measurements within normal limits will improve Outcome: Progressing Goal: Gastrointestinal status for postoperative course will improve Outcome: Progressing Problem: Sensory (Pain) Goal: Pain levels will decrease Outcome: Progressing Problem: Skin Integrity Impairment Risk Goal: Mobility will improve Outcome: Progressing * Plan of Care - Leanna Ervin RN - 07/28/2024 6:43 AM CDT Goals: Clinical Goals for the Shift: HDS, labs WNL, sleep hygiene, Veletri Problem: Activity Goal: Patient's tolerance of increased activity will improve Outcome: Progressing Goal: Patient will maintain or regain ADL function Outcome: Progressing Goal: Ability to avoid complications of mobility impairment will improve Outcome: Progressing Problem: Coping Goal: Ability to verbalize positive feelings about self will improve Outcome: Progressing Goal: Ability to adjust to condition or change in health will improve Outcome: Progressing Problem: Fluid Volume Goal: Will regain or maintain balanced intake and output Outcome: Progressing Problem: Lack of Knowledge Goal: Patient's knowledge of postoperative course will improve Outcome: Progressing Problem: Nutrition Goal: Patient's nutritional status will improve Outcome: Progressing Goal: Patient's ability to achieve adequate nutrition will improve Outcome: Progressing Problem: Physical Regulation Goal: Ability to maintain clinical measurements within normal limits will improve Outcome: Progressing Goal: Complications related to the surgical procedure will be minimized or avoided Outcome: Progressing Goal: Ability to maintain adequate cardiac output will improve Outcome: Progressing Goal: Will maintain patent airway Outcome: Progressing Goal: Gastrointestinal status for postoperative course will improve Outcome: Progressing Goal: Postoperative complications of an ostomy will be minimized or avoided Outcome: Progressing Goal: Ability to re-establish a normal urinary elimination pattern will improve Outcome: Progressing Problem: Sensory (Pain) Goal: Pain levels will decrease Outcome: Progressing Problem: Skin Integrity Goal: Wound appearance will improve during the postoperative course Outcome: Progressing Problem: Fall Risk Goal: Ability [...] skin integrity will decrease Outcome: Progressing Problem: Lack of Knowledge Goal: [...] care needs will improve Outcome: Progressing Problem: Discharge Planning Goal: Understanding discharge needs will improve Outcome: Progressing Problem: Neurosensory Goal: Achieves stable or improved neurological status Outcome: Progressing Problem: Respiratory Goal: Achieves optimal ventilation and oxygenation Outcome: Progressing Goal: Ability to maintain a clear airway will improve Outcome: Progressing Problem: Cardiovascular Goal: Maintains optimal cardiac output and hemodynamic stability Outcome: Progressing Problem: Skin/Tissue Integrity Goal: Skin integrity remains intact Outcome: Progressing Problem: Musculoskeletal Goal: Return mobility to safest level of function Outcome: Progressing Problem: Gastrointestinal Goal: Minimal or absence of nausea and vomiting Outcome: Progressing Problem: Genitourinary Goal: Urinary catheter remains patent Outcome: Progressing Problem: Infection Goal: Absence of infection during hospitalization Outcome: Progressing Problem: Metabolic/Fluid and Electrolytes Goal: Electrolytes maintained within normal limits Outcome: Progressing Summary: HDS, very anxious/delirious, sleep hygiene promoted, Ta at 6, hypertensive no new orders, epi parked. * Plan of Care - Lamar Lund RRT - 07/28/2024 4:51 AM CDT NPPV - PATIENT WORE Situation: The patient was ordered on NPPV for nocturnal use due to a history of Obstructive Sleep Apnea (JACQUELINE). Patient was placed on their hospital provided NPPV machine. Settings: NPPV Mode: Spontaneous-time Set Breath Rate: 12 breaths/min IPAP Pressure: 10 cm H2O EPAP Min Pressure: 5 cm H20 FIO2: 40 %. Tolerance: The patient tolerated the NPPV without issue. Plan: Proceed as ordered and continue to monitor the patient. * Plan of Care - Lynda Sibley RN - 07/26/2024 9:33 AM CDT Goals: Clinical Goals for the Shift: VSS, increase mobility as tolerated, wean pressors as tolerated, labs, comfort, safety, education, infection prevention. Summary: Problem: Activity Goal: Patient's tolerance of increased activity will improve Outcome: Progressing Goal: Patient will maintain or regain ADL function Outcome: Progressing Goal: Ability to avoid complications of mobility impairment will improve Outcome: Progressing Problem: Coping Goal: Ability to verbalize positive feelings about self will improve Outcome: Progressing Goal: Ability to adjust to condition or change in health will improve Outcome: Progressing Problem: Fluid Volume Goal: Will regain or maintain balanced intake and output Outcome: Progressing Problem: Lack of Knowledge Goal: Patient's knowledge of postoperative course will improve Outcome: Progressing Problem: Nutrition Goal: Patient's nutritional status will improve Outcome: Progressing Goal: Patient's ability to achieve adequate nutrition will improve Outcome: Progressing Problem: Physical Regulation Goal: Ability to maintain clinical measurements within normal limits will improve Outcome: Progressing Goal: Complications related to the surgical procedure will be minimized or avoided Outcome: Progressing Goal: Ability to maintain adequate cardiac output will improve Outcome: Progressing Goal: Will maintain patent airway Outcome: Progressing Goal: Gastrointestinal status for postoperative course will improve Outcome: Progressing Goal: Postoperative complications of an ostomy will be minimized or avoided Outcome: Progressing Goal: Ability to re-establish a normal urinary elimination pattern will improve Outcome: Progressing Problem: Sensory (Pain) Goal: Pain levels will decrease Outcome: Progressing Problem: Skin Integrity Goal: Wound appearance will improve during the postoperative course Outcome: Progressing Problem: Fall Risk Goal: Ability [...] skin integrity will decrease Outcome: Progressing Problem: Lack of Knowledge Goal: [...] care needs will improve Outcome: Progressing Problem: Discharge Planning Goal: Understanding discharge needs will improve Outcome: Progressing * Plan of Care - Bautista Grimes RRT - 07/26/2024 3:37 AM CDT NPPV - PATIENT WORE Situation: The patient was ordered on NPPV prn for respiratory distress/ oxygen needs. Wore briefly overnight after being on HHFNC. Placed back onto HHFNC at this time. * Plan of Care - Kavita Pham RN - 07/25/2024 12:01 PM CDT Goals: Clinical Goals for the Shift: VSS, increase mobility as tolerated, wean pressors as tolerated, labs, comfort, safety, education, infection prevention. Summary: Problem: Activity Goal: Patient's tolerance of increased activity will improve Outcome: Ongoing Goal: Patient will maintain or regain ADL function Outcome: Ongoing Goal: Ability to avoid complications of mobility impairment will improve Outcome: Ongoing Problem: Coping Goal: Ability to verbalize positive feelings about self will improve Outcome: Ongoing Goal: Ability to adjust to condition or change in health will improve Outcome: Ongoing Problem: Fluid Volume Goal: Will regain or maintain balanced intake and output Outcome: Ongoing Problem: Lack of Knowledge Goal: Patient's knowledge of postoperative course will improve Outcome: Ongoing Problem: Nutrition Goal: Patient's nutritional status will improve Outcome: Ongoing Goal: Patient's ability to achieve adequate nutrition will improve Outcome: Ongoing Problem: Physical Regulation Goal: Ability to maintain clinical measurements within normal limits will improve Outcome: Ongoing Goal: Complications related to the surgical procedure will be minimized or avoided Outcome: Ongoing Goal: Ability to maintain adequate cardiac output will improve Outcome: Ongoing Goal: Will maintain patent airway Outcome: Ongoing Goal: Gastrointestinal status for postoperative course will improve Outcome: Ongoing Goal: Postoperative complications of an ostomy will be minimized or avoided Outcome: Ongoing Goal: Ability to re-establish a normal urinary elimination pattern will improve Outcome: Ongoing Problem: Sensory (Pain) Goal: Pain levels will decrease Outcome: Ongoing Problem: Skin Integrity Goal: Wound appearance will improve during the postoperative course Outcome: Ongoing Problem: Fall Risk Goal: Ability to state ways to decrease the risk of falls will improve Outcome: Ongoing Goal: Will remain free from falls Outcome: Ongoing Goal: Will remain free from injury from falls Outcome: Ongoing Problem: Skin Integrity Impairment Risk Goal: Mobility will improve Outcome: Ongoing Goal: Understanding of ways to prevent future skin breakdown will improve Outcome: Ongoing Goal: Nutritional status will improve Outcome: Ongoing Goal: Risk for impaired skin integrity will decrease Outcome: Ongoing Problem: Lack of Knowledge Goal: Ability to develop a pain control plan will improve Outcome: Ongoing Problem: Medication Goal: Satisfaction with pain management medication regimen will improve Outcome: Ongoing Problem: Sensory Goal: Ability to identify factors that increase pain levels will improve while working to decrease the patient's pain levels Outcome: Ongoing Problem: Coping Goal: Ability to cope will improve Outcome: Ongoing Problem: Health Behavior Goal: Identification of resources available to assist in meeting health care needs will improve Outcome: Ongoing Problem: Discharge Planning Goal: Understanding discharge needs will improve Outcome: Ongoing * Initial Assessments - Viry Cadet RN - 07/25/2024 10:01 AM CDT HOMA Initial Assessment Interview Note Information Obtained From: Patient (07/25/24930) Admission Source: home Impression: CAD Plan Includes: reimbursement manager will monitor for post acute discharge needs such as therapy, nursing, medical equipment or agency referrals as indicated by the care team. Primary Source of Transportation: Does the patient need discharge transport arranged?: No (07/25/24930) Health Insurance Coverage: [place] as primary also has Medicare A Prescription Coverage: yes [place] Pharmacy: Alverto Gutierrez [facility] Pharmacy - Fax or Paper Script Only - send e-rx to [facility] [address] [address] [facility] [address] [place] [address] [address] Primary Care Provider: Juan Retana MD Prior to Admission: Functional Status: Independent with ADLs Primary Caregiver: Self Support System: Children Home Care Services: No Outpatient Services: No Durable Medical Equipment: Cane (single prong), CPAP/Bi-PAP Living Arrangements: Children Type of Residence: Private residence Does patient wish to return to care facility?: Unable to assess Will the care facility allow the patient to return?: Other (comment) (na) Facility contact name and number:: Jeremy [phone] Steps in home?: Yes, Outside of home, Yes, Inside home Number of steps inside: 10 steps Number of steps outside: 2 steps Medication management: Independent (07/25/24 0502) Potential discharge needs include: Home Health: Physical therapy, Occupational therapy, correction (07/25/24930) OP Services: no Dialysis: no Behavioral Health Services: Behavioral Health Services: No (07/25/24930) Anticipated Level of Care: Anticipated discharge level of care: Private residence Pt/Family agrees with Anticipated Level of Care: Yes (07/25/24930) Patient expects to be Discharged to: Private residence, (07/25/24930) Additional Information: CM confirmed with patient PCP, pharmacy, phone and address. Explained role and purpose of CM and discussed discharge options. If home health or placement is indicated at the time of discharge, the patient will be provided with a list of agencies and facilities and CM will place referrals in [facility] . See above for an previous DME or HH usage if none is listed above then that means the patient denies prior HH or DME usage prior to this hospital admission. Patient lives in a house with son . Patient's Identified Problem/Goal Problem: Ensure acute medical [...] Collaboration with Patient, Provider, Direct Care Nurse, Surgical Assistant Certified, and other members of theHealth Care Team to assure needed interventions completed. 2. Return patient to optimal level of self-care post discharge. 3. Internetworking Technician will follow for Discharge Planning - interventions as needed 4. Anticipated level of care at discharge 5. Planned Discharge Disposition Viry Cadet RN * Plan of Care - Lobito Presley RRT - 07/25/2024 3:42 AM CDT NPPV - PATIENT WORE Situation: The patient was ordered on NPPV for nocturnal use due to a history of Obstructive Sleep Apnea (JACQUELINE). Patient was placed on their home NPPV machine. Settings: NPPV Mode: CPAP EPAP Pressure: 9 cm H20. Tolerance: The patient tolerated the NPPV without issue. Plan: Proceed as ordered and continue to monitor the patient. * Plan of Care - Bonita Ennis RN - 07/24/2024 6:16 PM CDT Goals: Hemodynamic stability Summary: * Plan of Care - Zelda Arnett RRT - 07/24/2024 6:15 PM CDT EXTUBATION Situation: Per MD/JAMAL order, the patient was extubated without incident, and placed on aerosol mask 50% 10L due to nose bleed Plan: Continue to monitor patients respiratory status and intervene as necessary. * Op Note - Leonor Quan MD - 07/24/2024 9:37 AM CDT Images from the original note were not included. 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 male who presented with exertional dyspnea at 10 feet. The patient was found to have multivessel coronary artery disease. After the above information was reviewed and the risk and benefits of surgery were discussed, the patient agreed to proceed with surgery. OPERATIVE FINDINGS: The left anterior descending target was 1.5 mm, it was moderately diseased The obtuse marginal target was 1.5 mm, it was mildly diseased The posterior descending target was 1.25 mm, it was moderately diseased DESCRIPTION OF PROCEDURE: After informed consent was obtained, the patient brought to the operating room and laid supine on the table. General anesthesia was induced, and endotracheal intubation was performed. Invasive monitoring lines and a transesophageal echo probe were placed by my anesthesia colleagues. A urinary catheter was placed. The patient's neck, chest, abdomen and legs were prepped and draped in the usual sterile fashion. Vancomycin and cefazolin were administered for surgical prophylaxis and written to be discontinued within 48 hours. No DVT prophylaxis was given as this is not indicated for cardiac surgical procedures. An incision was made on the the leg for videoendoscopic harvesting of the greater saphenous vein. Following removal of the the vein, the wound was irrigated with antibiotic solution and closed with absorbable suture in layers over a Zay-Julien drain. Simultaneously, an incision was made on the the forearm for open harvesting of the radial artery. Following removalof the the artery, the wound was irrigated with antibiotic solution and closed with absorbable suture in layers over a Zay- Julien drain. Simultaneously, a median sternotomy was performed. A skeletonized left internal mammary artery was harvested. After full-dose IV heparin was administered, the BURGESS was ligated from the chest wall. Next, papaverine was injected onto the vessel and it was wrapped in a papaverine-soaked sponge with a bulldog at its tip and placed in the left pleural space. The pericardium was entered, and the heart was suspended in a pericardial cradle. An aortic cannulawas placed into the ascending aorta and right atrial cannulation was performed. A cannula for delivery of antegrade cardioplegia and for venting of the aortic root was placed into the ascending aorta. A retrograde cannula was placed into the coronary sinus via a purse-string in the right atrium andconfirmed with a waveform tracing. After an activated clotting time greater than 470 s was achieved, the prime was taken and cardiopulmonary bypass was begun. The patient was cooled to 34 degrees Celsius. A thermistor to measure myocardial temperature was placed in the intraventricular septum. Carbon dioxide was bubbled into the mediastinum to reduce the risk of air embolism. Iced saline was usedto augment myocardial protection. Next, the epicardium overlying the sites chosen for anastamosis was incised. All graft lengths werecarefully measured. The left internal mammary artery, the saphenous vein and the radial artery werecut to the appropriate length and prepared for anastamosis. The aorta was crossclamped and cold blood cardioplegia was infused in an antegrade fashion to the aortic root. After approximately 1 L, the heart reached 15 degrees Celsius and we had good electromechanical arrest for the entire crossclamp period. After initial arrest, cardioplegia was given at regular intervals in antegrade and retrograde fashion throughout the case for myocardial protection. The first distal vessel grafted was the posterior descending. The size and quality of the vessel was acceptable and the conduit was saphenous vein. The anastomosis was performed in an end-to-side fashion using a running 7-0 Prolene. Next, we performed a proximal anastomosis. A small aortotomy were enlarged with a 4 mm punch. Proximal vein graft anastomosis was performed in an end-to-side fashion using a running 5-0 Prolene. The second distal vessel grafted was the obtuse marginal. The size and quality of the vessel was good and the conduit was radial arteryt The anastomosis was performed in an end-to-side fashion using a running 7-0 Prolene. Next, we performed a proximal anastomosis. A small aortotomy were enlarged with a 4 mm punch. Proximal radial artery graft anastomosis was performed in an end-to-side fashion using a running 6-0 Prolene. The final distal vessel grafted was the left anterior descending artery. The conduit was left internal mammary and its quality and flow were excellent. The anastomosis was performed in an [id number] using a running 7-0 Prolene. The aorta was then unclamped and the patient was fully rewarmed. During the rewarming process, the ascending aorta was continuously vented. The anastomoses were carefully inspected for hemostasis. A bipolar temporary epicardial pacing wire was placed on the right ventricle and brought out to the left of the sternotomy. Two unipolar temporary epicardial pacing wires were placed on the right atrium and brought out to the right of the sternotomy. The patient was weaned from bypass after the heart was filled and examined with transesophageal echocardiography. There was good function. There was no evidence of intraventricular air. The patient was weaned from cardiopulmonary bypass with the aid of dobutamine and norepinephrine. After we from cardiopul monary bypass, I reviewed the transesophageal echocardiogram with the anesthesiologist. It demonstrated improved ventricular function compared to before, with no new wall motion abnormality. The venous cannula was removed and hemostasis achieved at the cannulation site. Once the patient was hemodyna mically stable, protamine was administered to reverse heparin. The aortic cannula was removed, and the site was secured. We did have some radial artery spasm, which we treated with topical papaverine and intravenous nitroglycerin. An ultrasonic flow probe was used to confirm graft function. The BURGESS-LAD had a flow of 58 mL/min with a pulse index of 1.6. The radial-OM had a flow of 25 mL/min with a pulse index of 5.4. The SVG-PDA had a flow of 42 mL/min with a pulse index of 5.7. Chest tubes were placed in the posterior mediastinum, anterior mediastinum, right pleural space, and left pleural space and were brought out percutaneously below the sternotomy. The tubes were anchored to the skin with heavy silk sutures and connected to a closed suction drainage system. Hemostasiswas obtained and confirmed using sutures and unipolar electrosurgery. The pericardium was not reapproximated. The sternum was reapproximated with FiberTape and the Pato plating system. The skin and subcutaneous tissues were vigorously irrigated with antibiotic solution and closed using absorbable hogan tures in layers. A sterile dressing was then applied. TOTAL CARDIOPULMONARY BYPASS TIME: 140 min CROSS-CLAMP TIME: 104 min SPONGE/INSTRUMENT/NEEDLE COUNTS: Correct ESTIMATED BLOOD LOSS: Difficult to quantify due to use of cardiopulmonary bypass. BLOOD TRANSFUSION: Packed Red Blood Cells: 1 units, Fresh Frozen Plasma: 1 units, and Platelets: 1 units INTRAOPERATIVE FLUIDS: Difficult to quantify due to use of cardiopulmonary bypass. CONDITION ON DISCHARGE FROM OPERATING ROOM: The patient tolerated the procedure well and was taken to the Surgical Intensive Care Unit in critical but stable condition. COMPLICATIONS: There were no complications. PRESENCE STATEMENT: I, Leonor Quan MD, was present for the critical portions of the procedure from incision to sternal closure and remained immediately available at all other times. documented in this encounter Plan of Treatment Pending Results Name Type Priority Associated Diagnoses Date /Time Type and screen Lab STAT 4:21 PM CDT Basic metabolic panel Lab Timed 4:21 PM CDT Phosphorus Lab Timed 07/24/2024 4:2 1 PM CDT Magnesium Lab Timed 07/24/2024 4:2 1 PM CDT Lipid panel Lab Timed 07/24/2024 4: 21 PM CDT Potassium, whole blood Lab STAT 4:42 AM CDT Hemoglobin total, central venous Lab STAT 07/25/2024 8:07 PM CDT Potassium, whole blood Lab STAT 12:00 PM CDT Scheduled Orders Name Type Priority Associated Diagnoses Orde r Schedule Type and screen Lab STAT STAT for 1 Occurrences starting 07/24/2024 until 07/24/2024 ECG 12 lead ECG STAT As needed unt il discontinued starting 07/24/2024 Basic metabolic panel Lab Timed Onc e for 1 Occurrences starting 07/24/2024 until 07/24/2024 Phosphorus Lab Timed Once for 1 Occ urrences starting 07/24/2024 until 07/24/2024 Magnesium Lab Timed Once for 1 Occ urrences starting 07/24/2024 until 07/24/2024 Lipid panel Lab Timed Once for 1 Oc currences starting 07/24/2024 until 07/24/2024 Potassium, whole blood Lab STAT On ce for 1 Occurrences starting 07/25/2024 until 07/25/2024 Hemoglobin total, central venous Lab STAT Once for 1 Occur rences starting 07/25/2024 until 07/25/2024 Potassium, whole blood Lab STAT On ce for 1 Occurrences starting 07/27/2024 until 07/27/2024 Scheduled Referrals Name Type Priority Associated Diagnoses Order Schedule Ambulatory referral to Cardiac Rehab Outpatient Referral Routine S/P CABG (coronary artery bypass graft) Expected: 08/25/2024 (Approximate), Expires: 08/11/2025 documented as of this encounter Procedures Procedure Name Priority Date/Time Associated Diagnosis Comments POCT GLUCOSE DEVICE Routine 08/11/2024 8 :10 AM CDT EGFR Routine 08/10/2024 10:33 PM CDT CBC WITHOUT DIFFERENTIAL Routine 024 10:33 PM CDT MAGNESIUM Routine 08/10/2024 10:33 PM CDT BASIC METABOLIC PANEL Routine 08/10/2024 10:33 PM CDT POCT GLUCOSE DEVICE Routine 08/10/2024 8 :03 PM CDT POCT GLUCOSE DEVICE Routine 08/10/2024 4 :57 PM CDT POCT GLUCOSE DEVICE Routine 08/10/2024 12:04 PM CDT POCT GLUCOSE DEVICE Routine 08/10/2024 10:04 AM CDT POCT GLUCOSE DEVICE Routine 08/10/2024 8 :13 AM CDT PEP THERAPY Routine 08/10/2024 8:00 AM CDT EGFR Routine 08/09/2024 9:51 PM CDT CBC WITHOUT DIFFERENTIAL Routine 024 9:51 PM CDT MAGNESIUM Routine 08/09/2024 9:51 PM CDT BASIC METABOLIC PANEL Routine 08/09/2024 9:51 PM CDT POCT GLUCOSE DEVICE Routine 08/09/2024 9 :33 PM CDT PEP THERAPY Routine 08/09/2024 6:00 PM CDT POCT GLUCOSE DEVICE Routine 08/09/2024 4 :09 PM CDT PEP THERAPY Routine 08/09/2024 1:00 PM CDT POCT GLUCOSE DEVICE Routine 08/09/2024 12:48 PM CDT POCT GLUCOSE DEVICE Routine 08/09/2024 10:47 AM CDT POCT GLUCOSE DEVICE Routine 08/09/2024 8 :13 AM CDT PEP THERAPY Routine 08/09/2024 8:00 AM CDT EGFR Routine 08/08/2024 10:02 PM CDT CBC WITHOUT DIFFERENTIAL Routine 024 10:02 PM CDT TYPE AND SCREEN Timed 08/08/2024 10:02 PM CDT MAGNESIUM Routine 08/08/2024 10:02 PM CDT BASIC METABOLIC PANEL Routine 08/08/2024 10:02 PM CDT POCT GLUCOSE DEVICE Routine 08/08/2024 7 :07 PM CDT PEP THERAPY Routine 08/08/2024 6:00 PM CDT POCT GLUCOSE DEVICE Routine 08/08/2024 5 :32 PM CDT PEP THERAPY Routine 08/08/2024 1:00 PM CDT POCT GLUCOSE DEVICE Routine 08/08/2024 11:27 AM CDT PEP THERAPY Routine 08/08/2024 8:00 AM CDT POCT GLUCOSE DEVICE Routine 08/08/2024 7 :37 AM CDT EGFR Timed 08/07/2024 10:28 PM CDT CBC WITHOUT DIFFERENTIAL Timed 024 10:28 PM CDT PHOSPHORUS Timed 08/07/2024 10:28 PM CDT MAGNESIUM Timed 08/07/2024 10:28 PM CDT BASIC METABOLIC PANEL Timed 08/07/2024 10:28 PM CDT POCT GLUCOSE DEVICE Routine 08/07/2024 7 :23 PM CDT PEP THERAPY Routine 08/07/2024 6:00 PM CDT POCT GLUCOSE DEVICE Routine 08/07/2024 4 :46 PM CDT PEP THERAPY Routine 08/07/2024 1:00 PM CDT POCT GLUCOSE DEVICE Routine 08/07/2024 11:53 AM CDT PEP THERAPY Routine 08/07/2024 8:00 AM CDT POCT GLUCOSE DEVICE Routine 08/07/2024 7 :45 AM CDT EGFR Timed 08/06/2024 8:39 PM CDT CBC WITHOUT DIFFERENTIAL Timed 024 8:39 PM CDT PHOSPHORUS Timed 08/06/2024 8:39 PM CDT MAGNESIUM Timed 08/06/2024 8:39 PM CDT BASIC METABOLIC PANEL Timed 08/06/2024 8:39 PM CDT POCT GLUCOSE DEVICE Routine 08/06/2024 8 :22 PM CDT PEP THERAPY Routine 08/06/2024 6:00 PM CDT POCT GLUCOSE DEVICE Routine 08/06/2024 4 :32 PM CDT PEP THERAPY Routine 08/06/2024 1:00 PM CDT POCT GLUCOSE DEVICE Routine 08/06/2024 12:15 PM CDT POTASSIUM, WHOLE BLOOD Timed 9:59 AM CDT PEP THERAPY Routine 08/06/2024 8:00 AM CDT POCT GLUCOSE DEVICE Routine 08/06/2024 7 :51 AM CDT EGFR Timed 08/05/2024 9:41 PM CDT CBC WITHOUT DIFFERENTIAL Timed 024 9:41 PM CDT TYPE AND SCREEN Timed 08/05/2024 9:41 PM CDT PHOSPHORUS Timed 08/05/2024 9:41 PM CDT MAGNESIUM Timed 08/05/2024 9:41 PM CDT BASIC METABOLIC PANEL Timed 08/05/2024 9:41 PM CDT POCT GLUCOSE DEVICE Routine 08/05/2024 9 :23 PM CDT PEP THERAPY Routine 08/05/2024 6:00 PM CDT POCT GLUCOSE DEVICE Routine 08/05/2024 3 :55 PM CDT PEP THERAPY Routine 08/05/2024 1:00 PM CDT POCT GLUCOSE DEVICE Routine 08/05/2024 12:22 PM CDT XR CHEST PA LATERAL 2 VIEWS Timed 08/05/2024 9:45 AM CDT POCT GLUCOSE DEVICE Routine 08/05/2024 8 :34 AM CDT PEP THERAPY Routine 08/05/2024 8:00 AM CDT EGFR Timed 08/04/2024 9:28 PM CDT CBC WITHOUT DIFFERENTIAL Timed 9:28 PM CDT PHOSPHORUS Timed 08/04/2024 9:28 PM CDT MAGNESIUM Timed 08/04/2024 9:28 PM CDT BASIC METABOLIC PANEL Timed 08/04/2024 9:28 PM CDT POCT GLUCOSE DEVICE Routine 08/04/2024 8 :22 PM CDT PEP THERAPY Routine 08/04/2024 6:00 PM CDT POCT GLUCOSE DEVICE Routine 08/04/2024 4 :56 PM CDT PEP THERAPY Routine 08/04/2024 1:00 PM CDT XR CHEST 1 VIEW IP Routine 08/04/2024 12:04 PM CDT INSERTION OF BIV ELECTRODE Routine 08/04/2024 10:41 AM CDT Bradycardia Complete heart block (CMS/HCC) (HCC) Junctional escape rhythm ICD DC NEW Routine 08/04/2024 10:41 AM CDT Bradycardia Complete heart block (CMS/HCC) (HCC) Junctional escape rhythm POCT GLUCOSE DEVICE Routine 08/04/2024 9 :44 AM CDT PEP THERAPY Routine 08/04/2024 8:00 AM CDT POCT GLUCOSE DEVICE Routine 08/04/2024 7 :25 AM CDT CRITICAL CARE Routine 08/04/2024 7:15 AM CDT Bradycardia POC BLOOD GAS AND CHEMISTRIES, VENOUS Routine 08/04/2024 4:13 AM CDT EGFR Routine 08/03/2024 11:02 PM CDT CALCIUM, IONIZED Routine 08/03/2024 11:02 PM CDT CBC WITHOUT DIFFERENTIAL Routine 024 11:02 PM CDT PHOSPHORUS Routine 08/03/2024 11:02 PM CDT MAGNESIUM Routine 08/03/2024 11:02 PM CDT BASIC METABOLIC PANEL Routine 08/03/2024 11:02 PM CDT POCT GLUCOSE DEVICE Routine 08/03/2024 8 :28 PM CDT PEP THERAPY Routine 08/03/2024 6:00 PM CDT POCT GLUCOSE DEVICE Routine 08/03/2024 5 :33 PM CDT POTASSIUM, WHOLE BLOOD STAT 4:20 PM CDT TRANSTHORACIC ECHO (TTE) LIMITED/FOLLOW UP W LTD DOPPLER/CF W CONTRAST STAT 08/03/2024 3:57 PM CDT PEP THERAPY Routine 08/03/2024 3:47 PM CDT POCT GLUCOSE DEVICE Routine 08/03/2024 12:25 PM CDT POTASSIUM, WHOLE BLOOD STAT 4 8:13 AM CDT POCT GLUCOSE DEVICE Routine 08/03/2024 8 :10 AM CDT CRITICAL CARE Routine 08/03/2024 7:13 AM CDT Bradycardia POTASSIUM, WHOLE BLOOD STAT 4 5:15 AM CDT CBC WITHOUT DIFFERENTIAL Timed 024 5:09 AM CDT URINALYSIS AND REFLEX TO MICROSCOPIC Routine 08/03/2024 5:01 AM CDT URINALYSIS, MICROSCOPIC ONLY Routine 08/03/2024 5:01 AM CDT POTASSIUM, WHOLE BLOOD STAT 4 2:56 AM CDT POTASSIUM, WHOLE BLOOD STAT 4 12:16 AM CDT EGFR Routine 08/03/2024 12:16 AM CDT CALCIUM, IONIZED Routine 08/03/2024 12:16 AM CDT CBC WITHOUT DIFFERENTIAL Routine 024 12:16 AM CDT PHOSPHORUS Routine 08/03/2024 12:16 AM CDT MAGNESIUM Routine 08/03/2024 12:16 AM CDT BASIC METABOLIC PANEL Routine 08/03/2024 12:16 AM CDT POTASSIUM, WHOLE BLOOD STAT 4 7:50 PM CDT POCT GLUCOSE DEVICE Routine 08/02/2024 7 :50 PM CDT CRITICAL CARE Routine 08/02/2024 7:40 PM CDT Bradycardia POTASSIUM, WHOLE BLOOD STAT 4 6:07 PM CDT TYPE AND SCREEN Timed 08/02/2024 6:07 PM CDT POCT GLUCOSE DEVICE Routine 08/02/2024 5 :50 PM CDT POCT GLUCOSE DEVICE Routine 08/02/2024 12:21 PM CDT POCT GLUCOSE DEVICE Routine 08/02/2024 7 :52 AM CDT CRITICAL CARE Routine 08/02/2024 6:00 AM CDT Coronary artery disease, unspecified vessel or lesion type, unspecified whether angina present, unspecified whether [facility] or transplanted heart POTASSIUM, WHOLE BLOOD STAT 4 4:10 AM CDT POTASSIUM, WHOLE BLOOD STAT 4 11:31 PM CDT EGFR Routine 08/01/2024 11:31 PM CDT CALCIUM, IONIZED Routine 08/01/2024 11:31 PM CDT CBC WITHOUT DIFFERENTIAL Routine 024 11:31 PM CDT PHOSPHORUS Routine 08/01/2024 11:31 PM CDT MAGNESIUM Routine 08/01/2024 11:31 PM CDT BASIC METABOLIC PANEL Routine 08/01/2024 11:31 PM CDT POTASSIUM, WHOLE BLOOD STAT 4 8:24 PM CDT POCT GLUCOSE DEVICE Routine 08/01/2024 8 :23 PM CDT BLOOD GAS, ARTERIAL STAT 08/01/2024 5 :04 PM CDT POTASSIUM, WHOLE BLOOD STAT 4 4:22 PM CDT POCT GLUCOSE DEVICE Routine 08/01/2024 4 :22 PM CDT XR CHEST 1 VIEW ED Urgent/IP Urgent 08/01/2024 2:12 PM CDT POCT GLUCOSE DEVICE Routine 08/01/2024 11:54 AM CDT POCT GLUCOSE DEVICE Routine 08/01/2024 7 :49 AM CDT CRITICAL CARE Routine 08/01/2024 6:00 AM CDT Coronary artery disease, unspecified vessel or lesion type, unspecified whether angina present, unspecified whether [facility] or transplanted heart POTASSIUM, WHOLE BLOOD STAT 4 5:24 AM CDT POTASSIUM, WHOLE BLOOD STAT 4 11:16 PM CDT EGFR Routine 07/31/2024 11:16 PM CDT CALCIUM, IONIZED Routine 07/31/2024 11:16 PM CDT CBC WITHOUT DIFFERENTIAL Routine 024 11:16 PM CDT PHOSPHORUS Routine 07/31/2024 11:16 PM CDT MAGNESIUM Routine 07/31/2024 11:16 PM CDT BASIC METABOLIC PANEL Routine 07/31/2024 11:16 PM CDT POTASSIUM, WHOLE BLOOD STAT 4 8:20 PM CDT POCT GLUCOSE DEVICE Routine 07/31/2024 8 :20 PM CDT CRITICAL CARE Routine 07/31/2024 6:44 PM CDT Coronary artery disease, unspecified vessel or lesion type, unspecified whether angina present, unspecified whether [facility] or transplanted heart XR CHEST 1 VIEW IP Routine 07/31/2024 6:00 PM CDT POTASSIUM, WHOLE BLOOD STAT 4 4:59 PM CDT POCT GLUCOSE DEVICE Routine 07/31/2024 4 :57 PM CDT GENERAL Routine 07/31/2024 12:53 PM CDT Other mechanical complication of infusion catheter, initial encounter (HCC) POTASSIUM, WHOLE BLOOD STAT 4 11:24 AM CDT POCT GLUCOSE DEVICE Routine 07/31/2024 11:24 AM CDT [employer] EVALUATE AND TREAT Routine 8:56 AM CDT POCT GLUCOSE DEVICE Routine 07/31/2024 7 :38 AM CDT CRITICAL CARE Routine 07/31/2024 6:00 AM CDT Coronary artery disease, unspecified vessel or lesion type, unspecified whether angina present, unspecified whether [facility] or transplanted heart OXYHEMOGLOBIN, PULMONARY ARTERY STAT 07/31/2024 4:22 AM CDT HEMOGLOBIN TOTAL, PULMONARY ARTERY STAT 07/31/2024 4:22 AM CDT POTASSIUM, WHOLE BLOOD STAT 4 4:22 AM CDT BLOOD GAS, ARTERIAL STAT 07/31/2024 4 :22 AM CDT OXYHEMOGLOBIN, PULMONARY ARTERY STAT 07/30/2024 11:39 PM CDT HEMOGLOBIN TOTAL, PULMONARY ARTERY STAT 07/30/2024 11:39 PM CDT EGFR Routine 07/30/2024 11:39 PM CDT CALCIUM, IONIZED Routine 07/30/2024 11:39 PM CDT CBC WITHOUT DIFFERENTIAL Routine 024 11:39 PM CDT PHOSPHORUS Routine 07/30/2024 11:39 PM CDT MAGNESIUM Routine 07/30/2024 11:39 PM CDT BLOOD GAS, ARTERIAL STAT 07/30/2024 11:39 PM CDT BASIC METABOLIC PANEL Routine 07/30/2024 11:39 PM CDT POCT GLUCOSE DEVICE Routine 07/30/2024 8 :05 PM CDT CRITICAL CARE Routine 07/30/2024 6:37 PM CDT Coronary artery disease, unspecified vessel or lesion type, unspecified whether angina present, unspecified whether [facility] or transplanted heart XR CHEST 1 VIEW IP Routine 07/30/2024 6:01 PM CDT POCT GLUCOSE DEVICE Routine 07/30/2024 5 :01 PM CDT TYPE AND SCREEN Timed 07/30/2024 5:01 PM CDT EGFR Timed 07/30/2024 12:13 PM CDT BASIC METABOLIC PANEL Timed 07/30/2024 12:13 PM CDT POCT GLUCOSE DEVICE Routine 07/30/2024 10:56 AM CDT POCT GLUCOSE DEVICE Routine 07/30/2024 7 :50 AM CDT CRITICAL CARE Routine 07/30/2024 7:48 AM CDT Coronary artery disease, unspecified vessel or lesion type, unspecified whether angina present, unspecified whether [facility] [place] or transplanted heart OXYHEMOGLOBIN, PULMONARY ARTERY STAT 07/30/2024 7:48 AM CDT HEMOGLOBIN TOTAL, PULMONARY ARTERY STAT 07/30/2024 7:48 AM CDT BLOOD GAS, ARTERIAL STAT 07/30/2024 7 :48 AM CDT EGFR Routine 07/30/2024 1:01 AM CDT CBC WITHOUT DIFFERENTIAL Routine 024 1:01 AM CDT PHOSPHORUS Routine 07/30/2024 1:01 AM CDT MAGNESIUM Routine 07/30/2024 1:01 AM CDT BASIC METABOLIC PANEL Routine 07/30/2024 1:01 AM CDT OXYHEMOGLOBIN, PULMONARY ARTERY STAT 07/29/2024 9:34 PM CDT HEMOGLOBIN TOTAL, PULMONARY ARTERY STAT 07/29/2024 9:34 PM CDT BLOOD GAS, ARTERIAL STAT 07/29/2024 9 :34 PM CDT POCT GLUCOSE DEVICE Routine 07/29/2024 8 :34 PM CDT XR CHEST 1 VIEW IP Routine 07/29/2024 6:51 PM CDT CRITICAL CARE Routine 07/29/2024 6:41 PM CDT Coronary artery disease, unspecified vessel or lesion type, unspecified whether angina present, unspecified whether [facility] [place] or transplanted heart POCT GLUCOSE DEVICE Routine 07/29/2024 4 :56 PM CDT POTASSIUM, WHOLE BLOOD Timed 4 4:54 PM CDT OXYHEMOGLOBIN, PULMONARY ARTERY Timed 07/29/2024 12:24 PM CDT POTASSIUM, WHOLE BLOOD Timed 4 12:24 PM CDT POCT GLUCOSE DEVICE Routine 07/29/2024 12:01 PM CDT POCT GLUCOSE DEVICE Routine 07/29/2024 9 :14 AM CDT CRITICAL CARE Routine 07/29/2024 8:52 AM CDT Coronary artery disease, unspecified vessel or lesion type, unspecified whether angina present, unspecified whether [facility] [place] or transplanted heart OXYHEMOGLOBIN, PULMONARY ARTERY STAT 07/29/2024 8:38 AM CDT HEMOGLOBIN TOTAL, PULMONARY ARTERY STAT 07/29/2024 8:38 AM CDT POTASSIUM, WHOLE BLOOD Timed 4 8:38 AM CDT BLOOD GAS, ARTERIAL STAT 07/29/2024 8 :38 AM CDT POTASSIUM, WHOLE BLOOD Timed 4 3:59 AM CDT OXYHEMOGLOBIN, PULMONARY ARTERY STAT 07/29/2024 12:31 AM CDT POTASSIUM, WHOLE BLOOD STAT 4 12:31 AM CDT EGFR Routine 07/29/2024 12:31 AM CDT CBC WITHOUT DIFFERENTIAL Routine 024 12:31 AM CDT PHOSPHORUS Routine 07/29/2024 12:31 AM CDT MAGNESIUM Routine 07/29/2024 12:31 AM CDT BLOOD GAS, ARTERIAL STAT 07/29/2024 12:31 AM CDT BASIC METABOLIC PANEL Routine 07/29/2024 12:31 AM CDT POCT GLUCOSE DEVICE Routine 07/29/2024 12:30 AM CDT XR CHEST 1 VIEW IP Routine 07/28/2024 8:12 PM CDT OXYHEMOGLOBIN, PULMONARY ARTERY STAT 07/28/2024 7:45 PM CDT HEMOGLOBIN TOTAL, PULMONARY ARTERY STAT 07/28/2024 7:45 PM CDT POTASSIUM, WHOLE BLOOD STAT 7:45 PM CDT BLOOD GAS, ARTERIAL STAT 07/28/2024 7 :45 PM CDT POCT GLUCOSE DEVICE Routine 07/28/2024 7 :42 PM CDT CRITICAL CARE Routine 07/28/2024 7:27 PM CDT Coronary artery disease, unspecified vessel or lesion type, unspecified whether angina present, unspecified whether [facility] [place] or transplanted heart POCT GLUCOSE DEVICE Routine 07/28/2024 5 :57 PM CDT POCT GLUCOSE DEVICE Routine 07/28/2024 4 :09 PM CDT HEMOGLOBIN TOTAL, CENTRAL VENOUS STAT 07/28/2024 4:06 PM CDT OXYHEMOGLOBIN, CENTRAL VENOUS STAT 07/28/2024 4:06 PM CDT POTASSIUM, WHOLE BLOOD STAT 4 4:06 PM CDT BLOOD GAS, ARTERIAL STAT 07/28/2024 4 :06 PM CDT POTASSIUM, WHOLE BLOOD Timed 4 12:08 PM CDT POCT GLUCOSE DEVICE Routine 07/28/2024 12:08 PM CDT POCT GLUCOSE DEVICE Routine 07/28/2024 7 :43 AM CDT POTASSIUM, WHOLE BLOOD Timed 4 7:37 AM CDT CRITICAL CARE Routine 07/28/2024 7:32 AM CDT Coronary artery disease, unspecified vessel or lesion type, unspecified whether angina present, unspecified whether [facility] [place] or transplanted heart POTASSIUM, WHOLE BLOOD Timed 4 4:10 AM CDT POCT GLUCOSE DEVICE Routine 07/28/2024 4 :10 AM CDT OXYHEMOGLOBIN, PULMONARY ARTERY STAT 07/28/2024 12:03 AM CDT HEMOGLOBIN TOTAL, PULMONARY ARTERY STAT 07/28/2024 12:03 AM CDT LACTATE STAT 07/28/2024 12:03 AM CDT POTASSIUM, WHOLE BLOOD Timed 4 12:03 AM CDT EGFR Routine 07/28/2024 12:03 AM CDT CBC WITHOUT DIFFERENTIAL Routine 024 12:03 AM CDT PHOSPHORUS Routine 07/28/2024 12:03 AM CDT MAGNESIUM Routine 07/28/2024 12:03 AM CDT BLOOD GAS, ARTERIAL STAT 07/28/2024 12:03 AM CDT BASIC METABOLIC PANEL Routine 07/28/2024 12:03 AM CDT POCT GLUCOSE DEVICE Routine 07/27/2024 11:50 PM CDT POTASSIUM, WHOLE BLOOD Timed 8:47 PM CDT POCT GLUCOSE DEVICE Routine 07/27/2024 8 :47 PM CDT BLOOD GAS, ARTERIAL STAT 07/27/2024 8 :47 PM CDT XR CHEST 1 VIEW IP Routine 07/27/2024 8:44 PM CDT CRITICAL CARE Routine 07/27/2024 7:27 PM CDT Coronary artery disease, unspecified vessel or lesion type, unspecified whether angina present, unspecified whether [facility] [place] or transplanted heart POCT GLUCOSE DEVICE Routine 07/27/2024 5 :53 PM CDT POCT GLUCOSE DEVICE Routine 07/27/2024 4 :38 PM CDT POTASSIUM, WHOLE BLOOD Timed 4 4:30 PM CDT TYPE AND SCREEN Timed 07/27/2024 4:30 PM CDT POCT GLUCOSE DEVICE Routine 07/27/2024 12:02 PM CDT POTASSIUM, WHOLE BLOOD STAT 4 12:00 PM CDT BLOOD GAS, ARTERIAL STAT 07/27/2024 12:00 PM CDT HEMOGLOBIN TOTAL, CENTRAL VENOUS STAT 07/27/2024 9:28 AM CDT OXYHEMOGLOBIN, CENTRAL VENOUS STAT 07/27/2024 9:28 AM CDT LACTATE STAT 07/27/2024 9:28 AM CDT BLOOD GAS, ARTERIAL STAT 07/27/2024 9 :28 AM CDT POCT GLUCOSE DEVICE Routine 07/27/2024 9 :18 AM CDT POTASSIUM, WHOLE BLOOD Timed 7:41 AM CDT POCT GLUCOSE DEVICE Routine 07/27/2024 7 :41 AM CDT CRITICAL CARE Routine 07/27/2024 7:22 AM CDT Coronary artery disease, unspecified vessel or lesion type, unspecified whether angina present, unspecified whether [facility] [place] or transplanted heart POCT GLUCOSE DEVICE Routine 07/27/2024 6 :57 AM CDT POCT GLUCOSE DEVICE Routine 07/27/2024 6 :13 AM CDT HEMOGLOBIN TOTAL, CENTRAL VENOUS STAT 07/27/2024 3:58 AM CDT OXYHEMOGLOBIN, CENTRAL VENOUS STAT 07/27/2024 3:58 AM CDT POTASSIUM, WHOLE BLOOD Timed 4 3:58 AM CDT BLOOD GAS, ARTERIAL STAT 07/27/2024 3 :58 AM CDT POCT GLUCOSE DEVICE Routine 07/27/2024 3 :55 AM CDT POCT GLUCOSE DEVICE Routine 07/27/2024 2 :30 AM CDT POCT GLUCOSE DEVICE Routine 07/27/2024 12:09 AM CDT HEMOGLOBIN TOTAL, CENTRAL VENOUS STAT 07/27/2024 12:03 AM CDT OXYHEMOGLOBIN, CENTRAL VENOUS STAT 07/27/2024 12:03 AM CDT POTASSIUM, WHOLE BLOOD Timed 12:03 AM CDT EGFR Routine 07/27/2024 12:03 AM CDT CBC WITHOUT DIFFERENTIAL Routine 024 12:03 AM CDT PHOSPHORUS Routine 07/27/2024 12:03 AM CDT MAGNESIUM Routine 07/27/2024 12:03 AM CDT BLOOD GAS, ARTERIAL STAT 07/27/2024 12:03 AM CDT BASIC METABOLIC PANEL Routine 07/27/2024 12:03 AM CDT POCT GLUCOSE DEVICE Routine 07/26/2024 11:09 PM CDT POCT GLUCOSE DEVICE Routine 07/26/2024 10:09 PM CDT POCT GLUCOSE DEVICE Routine 07/26/2024 8 :55 PM CDT XR CHEST 1 VIEW IP Routine 07/26/2024 8:38 PM CDT POCT GLUCOSE DEVICE Routine 07/26/2024 8 :02 PM CDT HEMOGLOBIN TOTAL, CENTRAL VENOUS STAT 07/26/2024 7:04 PM CDT OXYHEMOGLOBIN, CENTRAL VENOUS STAT 07/26/2024 7:04 PM CDT POTASSIUM, WHOLE BLOOD Timed 7:04 PM CDT BLOOD GAS, ARTERIAL STAT 07/26/2024 7 :04 PM CDT POCT GLUCOSE DEVICE Routine 07/26/2024 6 :57 PM CDT CRITICAL CARE Routine 07/26/2024 6:53 PM CDT Coronary artery disease, unspecified vessel or lesion type, unspecified whether angina present, unspecified whether [facility] [place] or transplanted heart POCT GLUCOSE DEVICE Routine 07/26/2024 6 :04 PM CDT POCT GLUCOSE DEVICE Routine 07/26/2024 4 :57 PM CDT POCT GLUCOSE DEVICE Routine 07/26/2024 4 :03 PM CDT OXYHEMOGLOBIN, PULMONARY ARTERY STAT 07/26/2024 3:19 PM CDT HEMOGLOBIN TOTAL, PULMONARY ARTERY STAT 07/26/2024 3:19 PM CDT POCT GLUCOSE DEVICE Routine 07/26/2024 3 :02 PM CDT HEMOGLOBIN TOTAL, CENTRAL VENOUS STAT 07/26/2024 2:03 PM CDT OXYHEMOGLOBIN, CENTRAL VENOUS STAT 07/26/2024 2:03 PM CDT POCT GLUCOSE DEVICE Routine 07/26/2024 2 :03 PM CDT POCT GLUCOSE DEVICE Routine 07/26/2024 12:56 PM CDT POCT GLUCOSE DEVICE Routine 07/26/2024 12:03 PM CDT POCT GLUCOSE DEVICE Routine 07/26/2024 10:49 AM CDT POCT GLUCOSE DEVICE Routine 07/26/2024 10:01 AM CDT POCT GLUCOSE DEVICE Routine 07/26/2024 8 :47 AM CDT OXYHEMOGLOBIN, PULMONARY ARTERY STAT 07/26/2024 8:06 AM CDT HEMOGLOBIN TOTAL, PULMONARY ARTERY STAT 07/26/2024 8:06 AM CDT POCT GLUCOSE DEVICE Routine 07/26/2024 7 :46 AM CDT CRITICAL CARE Routine 07/26/2024 6:37 AM CDT Coronary artery disease, unspecified vessel or lesion type, unspecified whether angina present, unspecified whether [facility] [place] or transplanted heart POCT GLUCOSE DEVICE Routine 07/26/2024 6 :04 AM CDT HEMOGLOBIN TOTAL, CENTRAL VENOUS STAT 07/26/2024 4:14 AM CDT OXYHEMOGLOBIN, CENTRAL VENOUS STAT 07/26/2024 4:14 AM CDT BLOOD GAS, ARTERIAL STAT 07/26/2024 4 :14 AM CDT POCT GLUCOSE DEVICE Routine 07/26/2024 4 :12 AM CDT POCT GLUCOSE DEVICE Routine 07/26/2024 3 :15 AM CDT POCT GLUCOSE DEVICE Routine 07/26/2024 2 :04 AM CDT POCT GLUCOSE DEVICE Routine 07/26/2024 1 :15 AM CDT OXYHEMOGLOBIN, CENTRAL VENOUS STAT 07/26/2024 12:33 AM CDT EGFR Routine 07/26/2024 12:33 AM CDT CBC WITHOUT DIFFERENTIAL Routine 024 12:33 AM CDT PHOSPHORUS Routine 07/26/2024 12:33 AM CDT MAGNESIUM Routine 07/26/2024 12:33 AM CDT BLOOD GAS, ARTERIAL STAT 07/26/2024 12:33 AM CDT BASIC METABOLIC PANEL Routine 07/26/2024 12:33 AM CDT POCT GLUCOSE DEVICE Routine 07/26/2024 12:28 AM CDT POCT GLUCOSE DEVICE Routine 07/25/2024 10:30 PM CDT XR CHEST 1 VIEW IP Routine 07/25/2024 9:17 PM CDT HEMOGLOBIN TOTAL, CENTRAL VENOUS STAT 07/25/2024 8:07 PM CDT OXYHEMOGLOBIN, CENTRAL VENOUS STAT 07/25/2024 8:07 PM CDT LACTATE STAT 07/25/2024 8:07 PM CDT POTASSIUM, WHOLE BLOOD Timed 8:07 PM CDT BLOOD GAS, ARTERIAL STAT 07/25/2024 8 :07 PM CDT POCT GLUCOSE DEVICE Routine 07/25/2024 8 :05 PM CDT CRITICAL CARE Routine 07/25/2024 6:40 PM CDT Coronary artery disease, unspecified vessel or lesion type, unspecified whether angina present, unspecified whether [facility] [place] or transplanted heart POCT GLUCOSE DEVICE Routine 07/25/2024 6:23 PM CDT POCT GLUCOSE DEVICE Routine 07/25/2024 5 :03 PM CDT HEMOGLOBIN TOTAL, CENTRAL VENOUS STAT 07/25/2024 5:02 PM CDT OXYHEMOGLOBIN, CENTRAL VENOUS STAT 07/25/2024 5:02 PM CDT LACTATE STAT 07/25/2024 5:02 PM CDT POTASSIUM, WHOLE BLOOD Timed 4 5:02 PM CDT CRITICAL RESULT CALLBACK CHEMISTRY STAT 07/25/2024 5:02 PM CDT BLOOD GAS, ARTERIAL STAT 07/25/2024 5 :02 PM CDT POTASSIUM, WHOLE BLOOD Timed 4 3:25 PM CDT POCT GLUCOSE DEVICE Routine 07/25/2024 3 :24 PM CDT OXYHEMOGLOBIN, CENTRAL VENOUS STAT 07/25/2024 1:13 PM CDT OXYHEMOGLOBIN, PULMONARY ARTERY STAT 07/25/2024 1:13 PM CDT BLOOD GAS, ARTERIAL STAT 07/25/2024 1 :13 PM CDT POCT GLUCOSE DEVICE Routine 07/25/2024 12:40 PM CDT POCT GLUCOSE DEVICE Routine 07/25/2024 10:16 AM CDT OXYHEMOGLOBIN, PULMONARY ARTERY STAT 07/25/2024 10:13 AM CDT LACTATE STAT 07/25/2024 10:13 AM CDT POTASSIUM, WHOLE BLOOD Timed 4 10:13 AM CDT CRITICAL RESULT CALLBACK CHEMISTRY STAT 07/25/2024 10:13 AM CDT BLOOD GAS, ARTERIAL STAT 07/25/2024 10:13 AM CDT POC BLOOD GAS AND CHEMISTRIES, ARTERIAL Routine 07/25/2024 8:02 AM CDT POCT GLUCOSE DEVICE Routine 07/25/2024 6 :53 AM CDT CRITICAL CARE Routine 07/25/2024 6:35 AM CDT Coronary artery disease, unspecified vessel or lesion type, unspecified whether angina present, unspecified whether [facility] [place] or transplanted heart POCT GLUCOSE DEVICE Routine 07/25/2024 6 :13 AM CDT OXYHEMOGLOBIN, PULMONARY ARTERY STAT 07/25/2024 4:42 AM CDT POTASSIUM, WHOLE BLOOD STAT 4:42 AM CDT BLOOD GAS, ARTERIAL STAT 07/25/2024 4 :42 AM CDT POCT GLUCOSE DEVICE Routine 07/25/2024 4 :41 AM CDT EGFR Routine 07/25/2024 4:38 AM CDT CBC WITHOUT DIFFERENTIAL Routine 024 4:38 AM CDT PHOSPHORUS Routine 07/25/2024 4:38 AM CDT MAGNESIUM Routine 07/25/2024 4:38 AM CDT BASIC METABOLIC PANEL Routine 07/25/2024 4:38 AM CDT POCT GLUCOSE DEVICE Routine 07/25/2024 3 :18 AM CDT POC BLOOD GAS AND CHEMISTRIES, ARTERIAL Routine 07/25/2024 2:23 AM CDT POCT GLUCOSE DEVICE Routine 07/25/2024 1 :07 AM CDT POCT GLUCOSE DEVICE Routine 07/25/2024 12:13 AM CDT POCT GLUCOSE DEVICE Routine 07/24/2024 10:48 PM CDT POCT GLUCOSE DEVICE Routine 07/24/2024 9 :54 PM CDT POCT GLUCOSE DEVICE Routine 07/24/2024 8 :59 PM CDT OXYHEMOGLOBIN, PULMONARY ARTERY STAT 07/24/2024 8:30 PM CDT LACTATE STAT 07/24/2024 8:30 PM CDT POCT GLUCOSE DEVICE Routine 07/24/2024 7 :59 PM CDT POCT GLUCOSE DEVICE Routine 07/24/2024 6 :59 PM CDT CRITICAL CARE Routine 07/24/2024 6:46 PM CDT Preoperative testing POCT GLUCOSE DEVICE Routine 07/24/2024 6 :24 PM CDT XR CHEST 1 VIEW IP Routine 07/24/2024 4:53 PM CDT OXYHEMOGLOBIN, PULMONARY ARTERY STAT 07/24/2024 4:24 PM CDT EGFR Timed 07/24/2024 4:21 PM CDT APTT STAT 07/24/2024 4:21 PM CDT PROTIME-INR STAT 07/24/2024 4:21 PM CDT CBC WITHOUT DIFFERENTIAL STAT 024 4:21 PM CDT TRIGLYCERIDES Timed 07/24/2024 4:21 PM CDT PHOSPHORUS Timed 07/24/2024 4:21 PM CDT MAGNESIUM Timed 07/24/2024 4:21 PM CDT LIPID PANEL Timed 07/24/2024 4:21 PM CDT BASIC METABOLIC PANEL Timed 07/24/2024 4:21 PM CDT POC BLOOD GAS AND CHEMISTRIES, ARTERIAL Routine 07/24/2024 4:14 PM CDT CRITICAL CARE Routine 07/24/2024 3:22 PM CDT POC THROMBOELASTOMETRY PANEL - HEPARIN Routine 07/24/2024 3:21 PM CDT POC THROMBOELASTOMETRY PANEL - INTRINSIC Routine 07/24/2024 3:20 PM CDT POC THROMBOELASTOMETRY PANEL - FIBRINOGEN Routine 07/24/2024 3:19 PM CDT POC THROMBOELASTOMETRY PANEL - EXTRINSIC Routine 07/24/2024 3:19 PM CDT TRANSFUSE PLASMA Timed 07/24/2024 2:40 PM CDT TRANSFUSE PLATELETS Timed 07/24/2024 2 :40 PM CDT PREPARE PLATELETS STAT 07/24/2024 2:2 4 PM CDT POCT PROTHROMBIN TIME Routine 07/24/2024 2:17 PM CDT POCT PARTIAL THROMBOPLASTIN TIME (PTT) Routine 07/24/2024 2:17 PM CDT POCT PLATELET COUNT AND HEMATOCRIT Routine 07/24/2024 2:15 PM CDT POCT HEPARIN/ACT CPB Routine 07/24/2024 2:14 PM CDT POC BLOOD GAS AND CHEMISTRIES, ARTERIAL Routine 07/24/2024 2:14 PM CDT POCT GLUCOSE DEVICE Routine 07/24/2024 2 :13 PM CDT POCT HEPARIN/ACT CPB Routine 07/24/2024 1:47 PM CDT POCT HEPARIN/ACT CPB Routine 07/24/2024 1:19 PM CDT POC BLOOD GAS AND CHEMISTRIES, ARTERIAL Routine 07/24/2024 1:18 PM CDT POCT GLUCOSE DEVICE Routine 07/24/2024 12:54 PM CDT POCT HEPARIN/ACT CPB Routine 07/24/2024 12:53 PM CDT POC BLOOD GAS AND CHEMISTRIES, ARTERIAL Routine 07/24/2024 12:52 PM CDT PREPARE PLASMA STAT 07/24/2024 12:45 PM CDT TRANSFUSE RED BLOOD CELLS Timed 07/24/2024 12:33 PM CDT POC BLOOD GAS AND CHEMISTRIES, ARTERIAL Routine 07/24/2024 12:15 PM CDT POCT HEPARIN/ACT CPB Routine 07/24/2024 12:14 PM CDT POCT HEPARIN/ACT CPB Routine 07/24/2024 11:42 AM CDT POC BLOOD GAS AND CHEMISTRIES, ARTERIAL Routine 07/24/2024 11:41 AM CDT POC BLOOD GAS AND CHEMISTRIES, ARTERIAL Routine 07/24/2024 10:59 AM CDT POCT HEPARIN/ACT CPB Routine 07/24/2024 10:57 AM CDT POCT GLUCOSE DEVICE Routine 07/24/2024 10:11 AM CDT POC BLOOD GAS AND CHEMISTRIES, ARTERIAL Routine 07/24/2024 9:30 AM CDT POCT HEPARIN DOSE RESPONSE, CPB Routine 07/24/2024 9:19 AM CDT EMILE ADD-ON FOR OR Routine 07/24/2024 8:0 1 AM CDT CLOSURE STERNAL - WITH PLATES 07/24/2024 8:01 AM CDT CAD, multiple vessel HARVEST - RADIAL ARTERY 07/24/20 24 8:01 AM CDT CAD, multiple vessel ENDOSCOPIC VESSEL HARVEST 07/24/2024 8:01 AM CDT CAD, multiple vessel CORONARY ARTERY BYPASS GRAFT WITH PUMP 07/24/2024 8:01 AM CDT CAD, multiple vessel POCT GLUCOSE DEVICE Routine 07/24/2024 6 :46 AM CDT B CHECK SAMPLE STAT 07/24/2024 6:45 AM CDT PREPARE RBC Timed 07/24/2024 6:36 AM CDT documented in this encounter Results * POCT glucose (08/11/2024 8:10 AM CDT) Glucose, POC 100 70 - 199 mg/dL Blood 08/11/2024 8:10 AM CDT 08/11/2024 8:10 AM CDT us Leonor Quan MD LAB POCT ORDERABLES - D EVICE Final Result [facility] [place] [address] * eGFR (08/10/2024 10:33 PM CDT) eGFR >90 >=60 mL/min/1. 73 [...] interpretive data was last reviewed 2021. Blood 08/10/2024 10:3 3 PM CDT 08/10/2024 11:09 PM CDT us Kathrin Humphrey [employer] LAB BLOOD ORDERABLES Final Result [facility] [place] [address] * (ABNORMAL) CBC without differential (08/10/2024 10:33 PM CDT) WBC 5.9 3.8 - 9.9 K/cumm Hgb 8.4(L) 13.0 - 17.5 g/dL [facility] Hct 26.9(L) 38.9 - 50.3 % [facility] Plt 187 150 - 400 K/cumm [facility] MPV 8.8(L) 9.1 - 12.3 fL [facility] RBC 3.32(L) 4.30 - 5.80 M/cumm [facility] MCV 81.0(L) 81.3 - 96.4 fL [facility] MCH 25.3(L) 27.1 - 33.3 pg [facility] MCHC 31.2(L) 32.3 - 35.7 g/dL [facility] RDW CV 16.3(H) 11.1 - 14.9 % [facility] RDW SD 47.8 35.7 - 48.1 fL [facility] NRBC abs 0.00 0.00 - 0.01 K/cumm [facility] Blood 08/10/2024 10:3 3 PM CDT 08/10/2024 11:10 PM CDT Kathrin Humphrey [employer] LAB BLOOD ORDERABLES Final Result [facility] [place] [address] * (ABNORMAL) Basic metabolic panel (08/10/2024 10:33 PM CDT) Pathologist [facility] Sodium 135 135 - 145 mmol/L Potassium, pl 4.6 3.3 - 4.9 mmol/L [facility] Chloride 100 97 - 110 mmol/L [facility] CO2 24 22 - 32 mmol/L [facility] Anion gap 11 2 - 15 mmol/L [facility] BUN 19 6 - 25 mg/dL [facility] Creatinine 0.83 0.80 - 1.30 mg/dL [facility] Glucose 97 70 - 199 mg/dL [facility] Comment: Interpretive Data Fasting glucose >/= [...] interpretive data was last revised 2022. Calcium 8.4(L) 8.5 - 10.3 mg/dL [facility] Blood 08/10/2024 10:3 3 PM CDT 08/10/2024 11:09 PM CDT us Kathrin Humphrey [employer] LAB BLOOD ORDERABLES Final Result Performing Organization Address [facility]/ZIP Co de Phone Number [facility] [place] [address] * Magnesium (08/10/2024 10:33 PM CDT) Magnesium 2.2 1.4 - 2.5 mg/dL Blood 08/10/2024 10:3 3 PM CDT 08/10/2024 11:09 PM CDT Result [facility] Kathrin Humphrey [employer] LAB BLOOD ORDERABLES Final Result Performing Organization Address [facility] Co de Phone Number [facility] [place] [address] * POCT glucose (08/10/2024 8:03 PM CDT) Glucose, POC 105 70 - 199 mg/dL Blood 08/10/2024 8:03 PM CDT 08/10/2024 8:03 PM CDT Result [facility] Leonor Quan MD LAB POCT ORDERABLES - D EVICE Final Result Performing Organization Address [facility] Co de Phone Number [facility] [place] [address] * POCT glucose (08/10/2024 4:57 PM CDT) Glucose, POC 108 70 - 199 mg/dL Blood 08/10/2024 4:57 PM CDT 08/10/2024 4:57 PM CDT Result [facility] Leonor Quan MD LAB POCT ORDERABLES - D EVICE Final Result Performing Organization Address City/[facility] Co de Phone Number [facility] [place] [address] * POCT glucose (08/10/2024 12:04 PM CDT) Glucose, POC 105 70 - 199 mg/dL Blood 08/10/2024 12:0 4 PM CDT 08/10/2024 12:04 PM CDT Leonor Quan MD LAB POCT ORDERABLES - D EVICE Final Result Performing Organization Address City/[facility] Co de Phone Number [facility] [place] [address] * POCT glucose (08/10/2024 10:04 AM CDT) Glucose, POC 99 70 - 199 mg/dL Blood 08/10/2024 10:0 4 AM CDT 08/10/2024 10:04 AM CDT Leonor Quan MD LAB POCT ORDERABLES - D EVICE Final Result Performing Organization Address [facility] de Phone Number [facility] [place] [address] * POCT glucose (08/10/2024 8:13 AM CDT) Glucose, POC 73 70 - 199 mg/dL Blood 08/10/2024 8:13 AM CDT 08/10/2024 8:13 AM CDT Leonor Quan MD LAB POCT ORDERABLES - D EVICE Final Result Performing Organization Address [facility] de Phone Number [facility] [place] [address] * eGFR (08/09/2024 9:51 PM CDT) eGFR 90 >=60 mL/min/1. 73 m2 Comment: Interpretive Data [...] interpretive data was last reviewed 2021. Blood 08/09/2024 9:51 PM CDT 08/09/2024 10:19 PM CDT us Kathrin Humphrey [employer] LAB BLOOD ORDERABLES Final Result Performing Organization Address City/State/[facility] Co de Phone Number [facility] [place] [address] * (ABNORMAL) CBC without differential (08/09/2024 9:51 PM CDT) Pathologist [facility] WBC 6.5 3.8 - 9.9 K/cumm Hgb 8.5(L) 13.0 - 17.5 g/dL [facility] Hct 27.7(L) 38.9 - 50.3 % [facility] Plt 207 150 - 400 K/cumm [facility] MPV 8.7(L) 9.1 - 12.3 fL [facility] RBC 3.45(L) 4.30 - 5.80 M/cumm [facility] MCV 80.3(L) 81.3 - 96.4 fL [facility] MCH 24.6(L) 27.1 - 33.3 pg [facility] MCHC 30.7(L) 32.3 - 35.7 g/dL [facility] RDW CV 16.2(H) 11.1 - 14.9 % [facility] RDW SD 46.4 35.7 - 48.1 fL [facility] NRBC abs 0.00 0.00 - 0.01 K/cumm [facility] Blood 08/09/2024 9:51 PM CDT 08/09/2024 10:22 PM CDT Kathrin Humphrey NP LAB BLOOD ORDERABLES Final Result [facility] [place] [address] * (ABNORMAL) Basic metabolic panel (08/09/2024 9:51 PM CDT) Sodium 135 135 - 145 mmol/L Potassium, pl 4.3 3.3 - 4.9 mmol/L [facility] Chloride 101 97 - 110 mmol/L [facility] CO2 24 22 - 32 mmol/L [facility] Anion gap 10 2 - 15 mmol/L [facility] BUN 23 6 - 25 mg/dL [facility] Creatinine 0.91 0.80 - 1.30 mg/dL [facility] Glucose 86 70 - 199 mg/dL [facility] Comment: Interpretive Data Fasting glucose >/= [...] 2022. Calcium 8.3(L) 8.5 - 10.3 mg/dL [facility] Blood 08/09/2024 9:51 PM CDT 08/09/2024 10:19 PM CDT Kathrin Humphrey [employer] LAB BLOOD ORDERABLES Final Result Performing Organization Address City/[facility] Co de Phone Number [facility] [place] [address] * Magnesium (08/09/2024 9:51 PM CDT) Magnesium 2.1 1.4 - 2.5 mg/dL Blood 08/09/2024 9:5 1 PM CDT 08/09/2024 10:19 PM CDT Kathrin Humphrey [employer] LAB BLOOD ORDERABLES Final Result Performing Organization Address [facility] de Phone Number [facility] [place] [address] * POCT glucose (08/09/2024 9:33 PM CDT) Glucose, POC 97 70 - 199 mg/dL Blood 08/09/2024 9:33 PM CDT 08/09/2024 9:33 PM CDT Leonor Quan MD LAB POCT ORDERABLES - D EVICE Final Result Performing Organization Address City/[facility] Co de Phone Number [facility] [place] [address] * POCT glucose (08/09/2024 4:09 PM CDT) Glucose, POC 94 70 - 199 mg/dL Blood 08/09/2024 4:09 PM CDT 08/09/2024 4:09 PM CDT Leonor Quan MD LAB POCT ORDERABLES - D EVICE Final Result Performing Organization Address [facility] Co de Phone Number [facility] [place] [address] * POCT glucose (08/09/2024 12:48 PM CDT) Glucose, POC 134 70 - 199 mg/dL Blood 08/09/2024 12:4 8 PM CDT 08/09/2024 12:48 PM CDT Leonor Quan MD LAB POCT ORDERABLES - D EVICE Final Result Performing Organization Address [facility] Co de Phone Number [facility] [place] [address] * POCT glucose (08/09/2024 10:47 AM CDT) Glucose, POC 124 70 - 199 mg/dL Blood 08/09/2024 10:4 7 AM CDT 08/09/2024 10:47 AM CDT Leonor Quan MD LAB POCT ORDERABLES - D EVICE Final Result Performing Organization Address [facility] Co de Phone Number [facility] [place] [address] * POCT glucose (08/09/2024 8:13 AM CDT) Glucose, POC 101 70 - 199 mg/dL Blood 08/09/2024 8:13 AM CDT 08/09/2024 8:13 AM CDT Leonor Quan MD LAB POCT ORDERABLES - D EVICE Final Result Performing Organization Address [facility] Co de Phone Number [facility] Department [place] [address] * eGFR (08/08/2024 10:02 PM CDT) eGFR 83 >=60 mL/min/1. 73 m2 Comment: Interpretive Data [...] interpretive data was last reviewed 2021. Blood 08/08/2024 10:0 2 PM CDT 08/08/2024 10:47 PM CDT us Kathrin Humphrey NP LAB BLOOD ORDERABLES Final Result [facility] [place] [address] * Type and screen (08/08/2024 10:02 PM CDT) Janell, indirect Negative ABO Rh O Positive [facility] Blood 08/08/2024 10:0 2 PM CDT 08/08/2024 11:00 PM CDT Narrative [facility] - 08/08/2024 11:52 PM CDT Has the patient had Daratumumab or Isatuximab in the past 6 months?->Unknown Kathrin Humphrey [employer] LAB BLOOD BANK TEST ORDERA BLES Final Result Performing Organization Address [facility]/ZIP Co de Phone Number [facility] [place] [address] * (ABNORMAL) CBC without differential (08/08/2024 10:02 PM CDT) [facility] WBC 8.0 3.8 - 9.9 K/cumm Hgb 8.4(L) 13.0 - 17.5 g/dL [facility] Hct 26.8(L) 38.9 - 50.3 % [facility] Plt 206 150 - 400 K/cumm [facility] MPV 9.0(L) 9.1 - 12.3 fL [facility] RBC 3.34(L) 4.30 - 5.80 M/cumm [facility] MCV 80.2(L) 81.3 - 96.4 fL [facility] MCH 25.1(L) 27.1 - 33.3 pg [facility] MCHC 31.3(L) 32.3 - 35.7 g/dL [facility] RDW CV 15.9(H) 11.1 - 14.9 % [facility] RDW SD 45.8 35.7 - 48.1 fL [facility] NRBC abs 0.00 0.00 - 0.01 K/cumm [facility] Blood 08/08/2024 10:0 2 PM CDT 08/08/2024 10:47 PM CDT Kathrin Humphrey [employer] LAB BLOOD ORDERABLES Final Result Performing Organization Address City/[facility]/ZIP Co de Phone Number [facility] [place] [address] * (ABNORMAL) Basic metabolic panel (08/08/2024 10:02 PM CDT) Sodium 133(L) 135 - 145 mmol/L Potassium, pl 3.5 3.3 - 4.9 mmol/L [facility] Chloride 99 97 - 110 mmol/L [facility] CO2 24 22 - 32 mmol/L [facility] Anion gap 10 2 - 15 mmol/L [facility] BUN 26(H) 6 - 25 mg/dL [facility] Creatinine 0.97 0.80 - 1.30 mg/dL [facility] Glucose 138 70 - 199 mg/dL [facility] Comment: Interpretive Data Fasting glucose >/= [...] 2022. Calcium 8.0(L) 8.5 - 10.3 mg/dL [facility] Blood 08/08/2024 10:0 2 PM CDT 08/08/2024 10:47 PM CDT us Kathrin Humphrey [employer] LAB BLOOD ORDERABLES Final Result [facility] [place] [address] * Magnesium (08/08/2024 10:02 PM CDT) Pathologist [facility] Magnesium 1.8 1.4 - 2.5 mg/dL Blood 08/08/2024 10:0 2 PM CDT 08/08/2024 10:47 PM CDT us Kathrin Humphrey [employer] LAB BLOOD ORDERABLES Final Result Performing Organization Address [facility] [place] [address] * POCT glucose (08/08/2024 7:07 PM CDT) Glucose, POC 139 70 - 199 mg/dL Blood 08/08/2024 7:07 PM CDT 08/08/2024 7:07 PM CDT Leonor Quan MD LAB POCT ORDERABLES - D EVICE Final Result Performing Organization Address [facility] Co de Phone Number [facility] [place] [address] * POCT glucose (08/08/2024 5:32 PM CDT) Glucose, POC 113 70 - 199 mg/dL Blood 08/08/2024 5:32 PM CDT 08/08/2024 5:32 PM CDT Leonor Quan MD LAB POCT ORDERABLES - D EVICE Final Result Performing Organization Address [facility] Co de Phone Number [facility] [place] [address] * POCT glucose (08/08/2024 11:27 AM CDT) Glucose, POC 166 70 - 199 mg/dL Blood 08/08/2024 11:2 7 AM CDT 08/08/2024 11:27 AM CDT Leonor Quan MD LAB POCT ORDERABLES - D EVICE Final Result Performing Organization Address [facility] Co de Phone Number [facility] [place] [address] * POCT glucose (08/08/2024 7:37 AM CDT) Glucose, POC 104 70 - 199 mg/dL Blood 08/08/2024 7:37 AM CDT 08/08/2024 7:37 AM CDT us Leonor Quan MD LAB POCT ORDERABLES - D EVICE Final Result Performing Organization Address City/State/ZIP Co ga Phone Number [facility] [place] [address] * eGFR (08/07/2024 10:28 PM CDT) eGFR 79 >=60 mL/min/1. 73 m2 Comment: Interpretive Data [...] interpretive data was last reviewed 2021. Blood 08/07/2024 10:2 8 PM CDT 08/07/2024 10:46 PM CDT Leonor Quan MD LAB BLOOD ORDERABLES Fi nal Result Performing Organization Address City/[facility] Co de Phone Number [facility] [place] [address] * Phosphorus (08/07/2024 10:28 PM CDT) [facility] Phosphorus, pl 2.8 2.3 - 4.5 mg/dL Blood 08/07/2024 10:2 8 PM CDT 08/07/2024 10:46 PM CDT Leonor Quan MD LAB BLOOD ORDERABLES Fi nal Result Performing Organization Address [facility] Co de Phone Number [facility] [place] [address] * Magnesium (08/07/2024 10:28 PM CDT) [facility] Magnesium 1.8 1.4 - 2.5 mg/dL Blood 08/07/2024 10:2 8 PM CDT 08/07/2024 10:46 PM CDT Leonor Quan MD LAB BLOOD ORDERABLES Fi nal Result Performing Organization Address [facility] Co de Phone Number [facility] [place] [address] * (ABNORMAL) Basic metabolic panel (08/07/2024 10:28 PM CDT) [facility] Sodium 135 135 - 145 mmol/L Potassium, pl 3.4 3.3 - 4.9 mmol/L [facility] Chloride 99 97 - 110 mmol/L [facility] CO2 27 22 - 32 mmol/L [facility] Anion gap 9 2 - 15 mmol/L [facility] BUN 24 6 - 25 mg/dL [facility] Creatinine 1.01 0.80 - 1.30 mg/dL [facility] Glucose 113 70 - 199 mg/dL [facility] Comment: Interpretive Data Fasting glucose >/= [...] 2022. Calcium 8.3(L) 8.5 - 10.3 mg/dL [facility] Blood 08/07/2024 10:2 8 PM CDT 08/07/2024 10:46 PM CDT us Leonor Quan MD LAB BLOOD ORDERABLES Fi nal Result [facility] [place] [address] * (ABNORMAL) CBC without differential (08/07/2024 10:28 PM CDT) WBC 7.0 3.8 - 9.9 K/cumm Hgb 7.5(L) 13.0 - 17.5 g/dL [facility] Hct 23.7(L) 38.9 - 50.3 % [facility] Plt 197 150 - 400 K/cumm [facility] MPV 8.9(L) 9.1 - 12.3 fL [facility] RBC 2.96(L) 4.30 - 5.80 M/cumm [facility] MCV 80.1(L) 81.3 - 96.4 fL [facility] MCH 25.3(L) 27.1 - 33.3 pg [facility] MCHC 31.6(L) 32.3 - 35.7 g/dL [facility] RDW CV 16.0(H) 11.1 - 14.9 % [facility] RDW SD 46.5 35.7 - 48.1 fL [facility] NRBC abs 0.00 0.00 - 0.01 K/cumm [facility] Blood 08/07/2024 10:2 8 PM CDT 08/07/2024 10:46 PM CDT Leonor Quan MD LAB BLOOD ORDERABLES Fi nal Result Performing Organization Address City/[facility] Co de Phone Number [facility] [place] [address] * POCT glucose (08/07/2024 7:23 PM CDT) Glucose, POC 144 70 - 199 mg/dL Blood 08/07/2024 7:23 PM CDT 08/07/2024 7:23 PM CDT Leonor Quan MD LAB POCT ORDERABLES - D EVICE Final Result Performing Organization Address [facility] de Phone Number [facility] [place] [employer] [address] * POCT glucose (08/07/2024 4:46 PM CDT) Glucose, POC 147 70 - 199 mg/dL Blood 08/07/2024 4:46 PM CDT 08/07/2024 4:46 PM CDT Leonor Quan MD LAB POCT ORDERABLES - D EVICE Final Result Performing Organization Address City/[facility] Co de Phone Number [facility] [place] [address] * POCT glucose (08/07/2024 11:53 AM CDT) Glucose, POC 142 70 - 199 mg/dL Blood 08/07/2024 11:5 3 AM CDT 08/07/2024 11:53 AM CDT us Leonor Quan MD LAB POCT ORDERABLES - D EVICE Final Result Performing Organization Address City/[facility] Co de Phone Number [facility] [place] [address] * POCT glucose (08/07/2024 7:45 AM CDT) Pathologist [facility] Glucose, POC 129 70 - 199 mg/dL Blood 08/07/2024 7:45 AM CDT 08/07/2024 7:45 AM CDT Leonor Quan MD LAB POCT ORDERABLES - D EVICE Final Result Performing Organization Address [facility] de Phone Number [facility] [place] [address] * eGFR (08/06/2024 8:39 PM CDT) eGFR 79 >=60 mL/min/1. 73 m2 Comment: Interpretive Data [...] Inclusion of Race in Diagnosing Kidney Disease, PETRA 2020). The CKD-EPI equation should not be used for patients with unstable renal function and has not been validated in children and those over 70. Current interpretive data was last reviewed 2021. Blood 08/06/2024 8:39 PM CDT 08/06/2024 9:36 PM CDT Leonor Quan MD LAB BLOOD ORDERABLES Fi nal Result Performing Organization Address City/[facility] Co de Phone Number [facility] [place] [address] * Phosphorus (08/06/2024 8:39 PM CDT) Pathologist [facility] Phosphorus, pl 3.3 2.3 - 4.5 mg/dL Blood 08/06/2024 8:39 PM CDT 08/06/2024 9:36 PM CDT Leonor Quan MD LAB BLOOD ORDERABLES Fi nal Result Performing Organization Address [facility] Co de Phone Number [facility] [place] [address] * Magnesium (08/06/2024 8:39 PM CDT) Pathologist [facility] Magnesium 2.0 1.4 - 2.5 mg/dL Blood 08/06/2024 8:39 PM CDT 08/06/2024 9:36 PM CDT Leonor Quan MD LAB BLOOD ORDERABLES Fi nal Result Performing Organization Address [facility] Co de Phone Number [facility] [employer] [place], [place] [id number] * (ABNORMAL) Basic metabolic panel (08/06/2024 8:39 PM CDT) Sodium 135 135 - 145 mmol/L Potassium, pl 3.3 3.3 - 4.9 mmol/L [facility] Chloride 96(L) 97 - 110 mmol/L [facility] CO2 27 22 - 32 mmol/L [facility] Anion gap 12 2 - 15 mmol/L [facility] BUN 25 6 - 25 mg/dL [facility] Creatinine 1.01 0.80 - 1.30 mg/dL [facility] Glucose 87 70 - 199 mg/dL [facility] Comment: Interpretive Data Fasting glucose >/= [...] interpretive data was last revised 2022. Calcium 8.5 8.5 - 10.3 mg/dL [facility] Blood 08/06/2024 8:39 PM CDT 08/06/2024 9:36 PM CDT us Leonor Quan MD LAB BLOOD ORDERABLES nal Result [facility] [place] [address] * (ABNORMAL) CBC without differential (08/06/2024 8:39 PM CDT) [facility] WBC 7.9 3.8 - 9.9 K/cumm Hgb 7.8(L) 13.0 - 17.5 g/dL [facility] Hct 24.4(L) 38.9 - 50.3 % [facility] Plt 214 150 - 400 K/cumm [facility] MPV 9.4 9.1 - 12.3 fL [facility] RBC 3.04(L) 4.30 - 5.80 M/cumm [facility] MCV 80.3(L) 81.3 - 96.4 fL [facility] MCH 25.7(L) 27.1 - 33.3 pg [facility] MCHC 32.0(L) 32.3 - 35.7 g/dL [facility] RDW CV 16.0(H) 11.1 - 14.9 % [facility] RDW SD 46.3 35.7 - 48.1 fL [facility] NRBC abs 0.00 0.00 - 0.01 K/cumm [facility] Blood 08/06/2024 8:39 PM CDT 08/06/2024 9:36 PM CDT Leonor Quan MD LAB BLOOD ORDERABLES Fi nal Result Performing Organization Address City/[facility] Co de Phone Number [facility] [place] [address] * POCT glucose (08/06/2024 8:22 PM CDT) Glucose, POC 101 70 - 199 mg/dL Blood 08/06/2024 8:22 PM CDT 08/06/2024 8:22 PM CDT Leonor Quan MD LAB POCT ORDERABLES - D EVICE Final Result Performing Organization Address [facility] Co de Phone Number [facility] [place] [address] * POCT glucose (08/06/2024 4:32 PM CDT) Glucose, POC 171 70 - 199 mg/dL Blood 08/06/2024 4:32 PM CDT 08/06/2024 4:32 PM CDT Leonor Quan MD LAB POCT ORDERABLES - D EVICE Final Result Performing Organization Address City/[facility]/ZIP Co de Phone Number [facility] [place] [address] * POCT glucose (08/06/2024 12:15 PM CDT) Glucose, POC 198 70 - 199 mg/dL Blood 08/06/2024 12:1 5 PM CDT 08/06/2024 12:15 PM CDT Leonor Quan MD LAB POCT ORDERABLES - D EVICE Final Result Performing Organization Address City/[facility] Co de Phone Number [facility] [place] [address] * Potassium, whole blood (08/06/2024 9:59 AM CDT) [facility] Potassium, bld 3.6 3.3 - 4.9 mmol/L Blood 08/06/2024 9:59 AM CDT 08/06/2024 10:08 AM CDT Va Griffith NP LAB BLOOD ORDERABLES F inal Result Performing Organization Address [facility] de Phone Number [facility] [place] [address] * POCT glucose (08/06/2024 7:51 AM CDT) [facility] Glucose, POC 148 70 - 199 mg/dL Blood 08/06/2024 7:51 AM CDT 08/06/2024 7:51 AM CDT Leonor Quan MD LAB POCT ORDERABLES - D EVICE Final Result Performing Organization Address [facility] Co de Phone Number [facility] [place] [employer] [address] * eGFR (08/05/2024 9:41 PM CDT) [facility] eGFR 72 >=60 mL/min/1. 73 m2 Comment: [...] interpretive data was last reviewed 2021. Blood 08/05/2024 9:41 PM CDT 08/05/2024 10:26 PM CDT us Leonor Quan MD LAB BLOOD ORDERABLES Fi nal Result Performing Organization Address City/State/[facility] Co de Phone Number [facility] [place] [address] * Type and screen (08/05/2024 9:41 PM CDT) Janell, indirect Negative ABO Rh O Positive [facility] Blood 08/05/2024 9:41 PM CDT 08/05/2024 10:32 PM CDT Narrative [facility] - 08/05/2024 11:35 PM CDT Has the patient had Daratumumab or Isatuximab in the past 6 months?->Unknown Mayi Richardson NP LAB BLOOD BANK T EST ORDERABLES Final Result Performing Organization Address City/[facility] Co de Phone Number [facility] [place] [address] * Phosphorus (08/05/2024 9:41 PM CDT) [facility] Phosphorus, pl 3.6 2.3 - 4.5 mg/dL Blood 08/05/2024 9:41 PM CDT 08/05/2024 10:26 PM CDT Leonor Quan MD LAB BLOOD ORDERABLES Fi nal Result Performing Organization Address [facility] [place] [address] * Magnesium (08/05/2024 9:41 PM CDT) [facility] Magnesium 2.0 1.4 - 2.5 mg/dL Blood 08/05/2024 9:41 PM CDT 08/05/2024 10:26 PM CDT Leonor Quan MD LAB BLOOD ORDERABLES Fi nal Result Performing Organization Address [facility] Co de Phone Number [facility] [place] [address] * (ABNORMAL) Basic metabolic panel (08/05/2024 9:41 PM CDT) [facility] Sodium 136 135 - 145 mmol/L Potassium, pl 3.0(L) 3.3 - 4.9 mmol/L [facility] Chloride 99 97 - 110 mmol/L [facility] CO2 28 22 - 32 mmol/L [facility] Anion gap 9 2 - 15 mmol/L [facility] BUN 30(H) 6 - 25 mg/dL [facility] Creatinine 1.09 0.80 - 1.30 mg/dL [facility] Glucose 114 70 - 199 mg/dL [facility] Comment: Interpretive Data Fasting glucose >/= [...] interpretive data was last revised 2022. Calcium 8.5 8.5 - 10.3 mg/dL [facility] Blood 08/05/2024 9:41 PM CDT 08/05/2024 10:26 PM CDT us Leonor Quan MD LAB BLOOD ORDERABLES Fi nal Result [facility] [place] [address] * (ABNORMAL) CBC without differential (08/05/2024 9:41 PM CDT) WBC 9.1 3.8 - 9.9 K/cumm Hgb 7.9(L) 13.0 - 17.5 g/dL [facility] Hct 25.4(L) 38.9 - 50.3 % [facility] Plt 238 150 - 400 K/cumm [facility] MPV 9.4 9.1 - 12.3 fL [facility] RBC 3.13(L) 4.30 - 5.80 M/cumm [facility] MCV 81.2(L) 81.3 - 96.4 fL [facility] MCH 25.2(L) 27.1 - 33.3 pg [facility] MCHC 31.1(L) 32.3 - 35.7 g/dL [facility] RDW CV 16.5(H) 11.1 - 14.9 % [facility] RDW SD 48.0 35.7 - 48.1 fL [facility] NRBC abs 0.03(H) 0.00 - 0.01 K/cumm [facility] Blood 08/05/2024 9:41 PM CDT 08/05/2024 10:26 PM CDT Leonor Quan MD LAB BLOOD ORDERABLES Fi nal Result Performing Organization Address City/[facility]/ZIP Co de Phone Number [facility] [place] [address] * POCT glucose (08/05/2024 9:23 PM CDT) Glucose, POC 136 70 - 199 mg/dL Blood 08/05/2024 9:23 PM CDT 08/05/2024 9:23 PM CDT Leonor Quan MD LAB POCT ORDERABLES - D EVICE Final Result Performing Organization Address City/[facility] Co de Phone Number [facility] [place] [address] * POCT glucose (08/05/2024 3:55 PM CDT) Glucose, POC 150 70 - 199 mg/dL Blood 08/05/2024 3:55 PM CDT 08/05/2024 3:55 PM CDT Leonor Quan MD LAB POCT ORDERABLES - D EVICE Final Result Performing Organization Address City/[facility] Co de Phone Number [facility] [place] [address] * POCT glucose (08/05/2024 12:22 PM CDT) Glucose, POC 130 70 - 199 mg/dL Blood 08/05/2024 12:2 2 PM CDT 08/05/2024 12:22 PM CDT us Leonor Quan MD LAB POCT ORDERABLES - D EVICE Final Result [facility] [place] [address] * X-ray chest 2 views (08/05/2024 9:45 AM CDT) Anatomical Region Laterality Modality Body, Chest N/A Computed Radiogr aphy 08/05/2024 9:48 AM CDT Impressions 08/05/2024 9:48 AM CDT Comparison is made to prior chest radiograph dated 08/04/2024 Sternotomy plate are unchanged. 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 Small left pleural effusion is similar to prior study. ??No pneumothorax. Stable heart size. Electronically signed by: Razia Schroeder M.D. Narrative 08/05/2024 9:48 AM CDT EXAMINATION: 2 view chest radiograph Procedure Note Razia Garces MD - 08/05/2024 EXAMINATION: 2 view chest radiograph IMPRESSION: Comparison is made to prior chest radiograph dated 08/04/2024 Sternotomy plate are unchanged. 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 Small left pleural effusion is similar to prior study. No pneumothorax. Stable heart size. Electronically signed by: Razia Schroeder M.D. us Leonor Quan MD IMG XR PROCEDURES Final Result * POCT glucose (08/05/2024 8:34 AM CDT) [facility] Signature Glucose, POC 123 70 - 199 mg/dL Blood 08/05/2024 8:34 AM CDT 08/05/2024 8:34 AM CDT us Leonor Quan MD LAB POCT ORDERABLES - D EVICE Final Result Performing Organization Address [facility] Co de Phone Number [facility] [place] [address] * eGFR (08/04/2024 9:28 PM CDT) eGFR 71 >=60 mL/min/1. 73 m2 [...] interpretive data was last reviewed 2021. Blood 08/04/2024 9:28 PM CDT 08/04/2024 10:05 PM CDT us Leonor Quan MD LAB BLOOD ORDERABLES Fi nal Result Performing Organization Address [facility] Co de Phone Number [facility] Department [place] [address] * Phosphorus (08/04/2024 9:28 PM CDT) [facility] Phosphorus, pl 4.4 2.3 - 4.5 mg/dL Blood 08/04/2024 9:28 PM CDT 08/04/2024 10:05 PM CDT Leonor Quan MD LAB BLOOD ORDERABLES Fi nal Result Performing Organization Address City/[facility]/ZIP Co de Phone Number [facility] [place] [address] * Magnesium (08/04/2024 9:28 PM CDT) [facility] Magnesium 2.1 1.4 - 2.5 mg/dL Blood 08/04/2024 9:28 PM CDT 08/04/2024 10:05 PM CDT Leonor Quan MD LAB BLOOD ORDERABLES Fi nal Result Performing Organization Address [facility] de Phone Number [facility] [place] [employer] [address] * (ABNORMAL) Basic metabolic panel (08/04/2024 9:28 PM CDT) [facility] Sodium 139 135 - 145 mmol/L Potassium, pl 4.5 3.3 - 4.9 mmol/L [facility] Comment:Hemolyzed; Potassium value may be falsely elevated by as much as 0.3-0.5 mmol/L. Suggest redraw and reanalysis. Chloride 101 97 - 110 mmol/L [facility] CO2 25 22 - 32 mmol/L [facility] Anion gap 13 2 - 15 mmol/L [facility] BUN 33(H) 6 - 25 mg/dL [facility] Creatinine 1.10 0.80 - 1.30 mg/dL [facility] Glucose 114 70 - 199 mg/dL [facility] Comment: Interpretive Data Fasting glucose >/= [...] interpretive data was last revised 2022. Calcium 8.5 8.5 - 10.3 mg/dL [facility] Blood 08/04/2024 9:28 PM CDT 08/04/2024 10:05 PM CDT us Leonor Quan MD LAB BLOOD ORDERABLES Fi nal Result [facility] [place] [address] * (ABNORMAL) CBC without differential (08/04/2024 9:28 PM CDT) [facility] WBC 10.7(H) 3.8 - 9.9 K/cumm Hgb 7.9(L) 13.0 - 17.5 g/dL [facility] Hct 25.1(L) 38.9 - 50.3 % [facility] Plt 191 150 - 400 K/cumm [facility] MPV 9.8 9.1 - 12.3 fL [facility] RBC 3.07(L) 4.30 - 5.80 M/cumm [facility] MCV 81.8 81.3 - 96.4 fL [facility] MCH 25.7(L) 27.1 - 33.3 pg [facility] MCHC 31.5(L) 32.3 - 35.7 g/dL [facility] RDW CV 16.5(H) 11.1 - 14.9 % [facility] RDW SD 48.9(H) 35.7 - 48.1 fL [facility] NRBC abs 0.04(H) 0.00 - 0.01 K/cumm [facility] Blood 08/04/2024 9:28 PM CDT 08/04/2024 10:06 PM CDT Leonor Quan MD LAB BLOOD ORDERABLES Fi nal Result Performing Organization Address [facility] Co de Phone Number [facility] [place] [address] * POCT glucose (08/04/2024 8:22 PM CDT) Glucose, POC 141 70 - 199 mg/dL Blood 08/04/2024 8:22 PM CDT 08/04/2024 8:22 PM CDT Leonor Quan MD LAB POCT ORDERABLES - D EVICE Final Result Performing Organization Address [facility] de Phone Number [facility] [place] [address] * POCT glucose (08/04/2024 4:56 PM CDT) Glucose, POC 110 70 - 199 mg/dL Blood 08/04/2024 4:56 PM CDT 08/04/2024 4:56 PM CDT Leonor Quan MD LAB POCT ORDERABLES - D EVICE Final Result Performing Organization Address [facility] de Phone Number [facility] [place] [employer] [address] * X-ray chest 1 view (Portable) (08/04/2024 12:04 PM CDT) Anatomical Region Laterality Modality Body, Chest N/A Computed Radiogr aphy 08/04/2024 3:24 PM CDT Impressions 08/04/2024 4:09 PM CDT The current study is compared with the prior radiograph dated 08/01/2024. Interval placement of left chest tube subclavian approach pacer/defibrillator with leads in the right atrium, right ventricle, and cardiac vein. Interval removal of right internal jugular venous catheter. Sternotomy plates and screws with unchanged alignment. ??Epicardial pacing wires present. Low lung volumes bilaterally. ??Small left pleural effusion with some associated atelectasis. ??No pneumothorax. ??Stable cardiomediastinal silhouette. Dictated by: Jerrod Ortiz MD The radiology attending physician has personally reviewed this study, and had reviewed and/or edited this written report and agrees with it. Electronically signed by: Serafin Terrell M.D. Narrative 08/04/2024 4:09 PM CDT EXAMINATION: 1 view chest radiograph Procedure Note Serafin Terrell MD - 08/04/2024 EXAMINATION: 1 view chest radiograph IMPRESSION: The current study is compared with the [...] edited this written report and agrees with it. Electronically signed by: Serafin Terrell M.D. Leonor Quan MD IMG XR PROCEDURES Final Result * ICD DC NEW, INSERTION OF BIV ELECTRODE (08/04/2024 10:41 AM CDT) Anatomical Region Laterality Modality X-Ray Angiograph y Narrative 08/05/2024 10:25 AM CDT Patient Name: Abiel Fink Date of : 1950 ?? Primary Physician: @PCP@ Procedure Date: @ADMITDT@ Name of procedure: 1. Placement of a Biventricular Pacing ICD 2. Selective Coronary Sinus Venography 3. Subclavian venography History: 1) CAD -Symptoms of GARCÍA -s/p CABG BURGESS-LAD, left radial-OM, SVG-PDA) 07/24/2024 2) AV block -History of second degree AV block, CHB post op -Given CHB and LVEF 26%, presented for TOLL TEST DESK WORKER-D 08/04/2024. 3) ICM -LVEF 40-50% pre op, with RV dysfunction (EMILE) -TTE 08/03/2024 with LVEF of 26% and likely normal RV 4) Mitral regurgitation -Mod MR pre-op -TTE 08/03/2024 mod MR 5) HTN 6) DM Methods: After informed consent was obtained, the patient was brought to the EP laboratory in a postabsorptive, nonsedated state. ??Peripheral IV access was established. ??Prophylactic antibiotics were administered prior to incision. ??Continuous ECG, blood pressure, and pulse oximetry were initiated. ??Cardioversion patch electrodes were placed on the patient's chest and back. ??A grounding patch was applied to the skin. ??Sedation was administered by anesthesia. In order to define the extrathoracic portion of the subclavian vein and exclude significant venous obstruction or anomalous anatomy, subclavian venography was performed prior to the procedure. ??Using the patient's left upper ext peripheral IV, contrast was injected and images were recorded. ?? The left subclavian vein and SVC were found to be widely patent. The left chest was prepared and draped in a sterile fashion. ??Local anesthesia was injected in the subcutaneous tissue in the infraclavicular area. ??An incision was made medial to the deltopectoral groove and parallel to the clavicle. ??The subcutaneous tissue was dissected the level of the prepectoral fascia. ??A subcutaneous pocket was created. ??Under fluoroscopic guidance and with the assistance of the images from the venogram, three separate venipunctures were made using micropuncture and modified Seldinger technique. ??These was performed in the extrathoracic portion of the subclavian vein. ??Guidewires were passed. ??Peel-away sheaths were placed, and were used to advance the leads into the circulation. Using fluoroscopic guidance, the leads were positioned. ??The RV lead was advanced to the RV outflow tract. ??Ventricular ectopy was recorded. ?? Images were taken in SHELL and MARJAN views to ensure appropriate lead placement. ??The lead tip was subsequently positioned in the RV apex. ?? Adequate sensing and pacing parameters were found, and no diaphragmatic stimulation was seen with high-output pacing. Next, the LV pacing lead was placed. ??The coronary sinus was intubated with an extended hook outer CS sheath and hydrophilic wire. ??Selective coronary sinus venography was performed, demonstrating the presence of a suitable postero lateral branch (lateral and anterolateral were very small). ??A quadripolar lead was positioned in this branch over a whisper EDS wire. ??Adequate sensing and pacing parameters were found, and no diaphragmatic stimulation was seen with high-output pacing. Next, the right atrial lead was positioned in the right atrial appendage. ?? Adequate sensing and pacing parameters were found, and no diaphragmatic stimulation was seen with high-output pacing. ??All sheaths were split, and the leads were secured to the fascia with Ethibond ties. The pocket was flushed with antibiotic solution and hemostasis was assured. ??Floseal was applied. ?? The generator was connected to the leads and placed inside the pocket. ??Antibiotic envelope was used.The wound was closed with 3 running layers of absorbable suture, and steristrips were applied. ??Defibrillator function testing was deferred. Following the procedure, the patient was taken to the recovery area in stable condition. ??A chest x-ray was obtained in the holding area. Lead parameters and device programming: - RA Lead (#[id number] S/N [id number]): Sensing 2.5 mV, Pacing threshold 0.75 V at 0.4 ms, Imp 608 Ohm - RV Lead (#[id number]): Sensing 6.6 mV, Pacing threshold 0.75 V at 0.4 ms Imp 456 Ohm - LV Lead (#[id number] S/N [id number]): Sensing NA mV, Pacing threshold 1.0 V at 0.4 ms, Imp 418 Ohm - Device: ??TOLL TEST DESK WORKER-D (Cobolt HF Quad #[id number] S/N [id number]), programmed DDD 60-130 BPM - Zones: VF> 200BPM ATP during charge then shocks VT monitor >171 BPM Conclusions: 1. Successful placement of a biventricular pacing defibrillator 2. Coronary sinus venography 3. Subclavian venography Recommendations: 1. Admit to same hospital bed 2. Portable chest x-ray in holding area. ??PA/lateral chest x-ray in the morning. 3. IV antibiotics while the patient is admitted, oral antibiotics for one week on discharge. 4. Device interrogation in the morning. 5. Follow-up will be arranged in the [facility] 7-10 days post-discharge Lucy Meyer MD Clinical Cardiac Special Education Resource Room Teacher us Altagracia Roman NP CV ELECTROPHYSIOLOGY PROCS F inal Result * POCT glucose (08/04/2024 9:44 AM CDT) Glucose, POC 111 70 - 199 mg/dL Blood 08/04/2024 9:44 AM CDT 08/04/2024 9:44 AM CDT Leonor Quan MD LAB POCT ORDERABLES - D EVICE Final Result Performing Organization Address City/[facility]/ZIP Co de Phone Number [facility] Department [place] [address] * POCT glucose (08/04/2024 7:25 AM CDT) Glucose, POC 104 70 - 199 mg/dL Blood 08/04/2024 7:25 AM CDT 08/04/2024 7:25 AM CDT Leonor Quan MD LAB POCT ORDERABLES - D EVICE Final Result [facility] [place] [address] * Critical Care (08/04/2024 7:15 AM CDT) Narrative Feng Sinclair MD - 08/04/2024 7:15 AM CDT Shantal Elizabeth NP ? 08/04/2024 ??1:28 PM Critical Care Performed by: Shantal Elizabeth NP Authorized by: Shantal Elizabeth NP ?? CRITICAL CARE: ??Team: ??83 CTICU ??Shift: ??AM ??Level of Billing: ??Subsequent Hospital Visit Level 3 ??My time spent with this patient was 45 minutes: Critical Provider Statement: I have seen and examined the patient on this day of service. I have reviewed and confirmed the history, physical exam, laboratory, and radiographic data as documented in the ICU note. I have reviewed and discussed my treatment plan with the patient's team and other medical/systems consultant staff. This time was in addition to and separate from care provided by other practitioners on this day of service. ? I spent time reviewing and interpreting data from bedside monitors, laboratory results, and imaging, I spent time discussing the management of this critically ill patient with consultants and the medical staff and I spent time documenting in the medical record Shantal Elizabeth NP IN CLINIC/BEDSIDE ORDERABLES Final Result * (ABNORMAL) POC Blood Gas and Chemistries, Venous - (08/04/2024 4:13 AM CDT) pH, Laurent POC 7.38 7.32 - 7.43 pCO2, laurent POC 42 40 - 50 mmHg [facility] pO2, laurent POC 44 mmHg [facility] Na, POC 137 135 - 145 mmol/L [facility] K POC 4.8 3.3 - 4.9 mmol/L [facility] Comment: Interpretive Data Not all point of care methods assess for hemolysis. Confirm with instrument and retest K+ if not consistent with clinical signs and symptoms. Current Interpretive Data was last revised on 2024. Cl, POC 108 97 - 110 mmol/L [facility] Ionized Ca, POC 4.97 4.50 - 5.10 mg/dL [facility] Glucose, POC 106 70 - 199 mg/dL [facility] Lactate, POC 1.2 0.7 - 2.2 mmol/L [facility] O2 Sat, Laurent POC (Aliza) 68 % [facility] Base excess, POC -0.3 mmol/L [facility] HCO3, Laurent POC 25 20 - 30 mmol/L [facility] Hct, POC 25.0(L) 41.4 - 51.6 % [facility] Total Hb, POC 8.3(L) 13.8 - 17.2 g/dL [facility] Blood 08/04/2024 4:13 AM CDT 08/04/2024 4:13 AM CDT us Leonor Quan MD LAB POCT ORDERABLES - D EVICE Final Result [facility] [place] [address] * eGFR (08/03/2024 11:02 PM CDT) eGFR 68 >=60 mL/min/1. 73 m2 Comment: Interpretive Data [...] interpretive data was last reviewed 2021. Blood 08/03/2024 11:0 2 PM CDT 08/03/2024 11:28 PM CDT Amber KUHN LAB BLOOD ORDERABLES Fi nal Result Performing Organization Address [facility] Co de Phone Number [facility] [place] [address] * Calcium, ionized (08/03/2024 11:02 PM CDT) Calcium, Ionized 4.59 4.50 - 5.10 mg/dL Blood 08/03/2024 11:0 2 PM CDT 08/03/2024 11:28 PM CDT Leonor Quan MD LAB BLOOD ORDERABLES Ed ited Result - Final Performing Organization Address [facility] de Phone Number [facility] [place] [address] * Phosphorus (08/03/2024 11:02 PM CDT) Phosphorus, pl 4.5 2.3 - 4.5 mg/dL Blood 08/03/2024 11:0 2 PM CDT 08/03/2024 11:28 PM CDT Leonor Quan MD LAB BLOOD ORDERABLES Fi nal Result Performing Organization Address [facility] Co de Phone Number [facility] [place] [address] * Magnesium (08/03/2024 11:02 PM CDT) Magnesium 2.1 1.4 - 2.5 mg/dL Blood 08/03/2024 11:0 2 PM CDT 08/03/2024 11:28 PM CDT Leonor Quan MD LAB BLOOD ORDERABLES Fi nal Result [facility] [place] [address] * (ABNORMAL) Basic metabolic panel (08/03/2024 11:02 PM CDT) Sodium 137 135 - 145 mmol/L Potassium, pl 4.3 3.3 - 4.9 mmol/L [facility] Chloride 105 97 - 110 mmol/L [facility] CO2 24 22 - 32 mmol/L [facility] Anion gap 8 2 - 15 mmol/L [facility] BUN 34(H) 6 - 25 mg/dL [facility] Creatinine 1.15 0.80 - 1.30 mg/dL [facility] Glucose 110 70 - 199 mg/dL [facility] Comment: Interpretive Data Fasting glucose >/= [...] interpretive data was last revised 2022. Calcium 8.8 8.5 - 10.3 mg/dL [facility] Blood 08/03/2024 11:0 2 PM CDT 08/03/2024 11:28 PM CDT us Leonor Quan MD LAB BLOOD ORDERABLES Fi nal Result Performing Organization Address [facility] Co de Phone Number [facility] [place] [address] * (ABNORMAL) CBC without differential (08/03/2024 11:02 PM CDT) WBC 12.3(H) 3.8 - 9.9 K/cumm Hgb 7.7(L) 13.0 - 17.5 g/dL [facility] Hct 23.7(L) 38.9 - 50.3 % [facility] Plt 189 150 - 400 K/cumm [facility] MPV 9.8 9.1 - 12.3 fL [facility] RBC 2.88(L) 4.30 - 5.80 M/cumm [facility] MCV 82.3 81.3 - 96.4 fL [facility] MCH 26.7(L) 27.1 - 33.3 pg [facility] MCHC 32.5 32.3 - 35.7 g/dL [facility] RDW CV 16.4(H) 11.1 - 14.9 % [facility] RDW SD 49.1(H) 35.7 - 48.1 fL [facility] NRBC abs 0.06(H) 0.00 - 0.01 K/cumm [facility] Blood 08/03/2024 11:0 2 PM CDT 08/03/2024 11:40 PM CDT Leonor Quan MD LAB BLOOD ORDERABLES Fi nal Result Performing Organization Address City/[facility]/ZIP Co de Phone Number [facility] [place] [address] * POCT glucose (08/03/2024 8:28 PM CDT) Glucose, POC 116 70 - 199 mg/dL Blood 08/03/2024 8:28 PM CDT 08/03/2024 8:28 PM CDT Leonor Quan MD LAB POCT ORDERABLES - D EVICE Final Result [facility] [place] [employer] [address] * POCT glucose (08/03/2024 5:33 PM CDT) Glucose, POC 113 70 - 199 mg/dL Blood 08/03/2024 5:33 PM CDT 08/03/2024 5:33 PM CDT Leonor Quan MD LAB POCT ORDERABLES - D EVICE Final Result Performing Organization Address [facility] Co de Phone Number [facility] [place] [address] * Potassium, whole blood (08/03/2024 4:20 PM CDT) Potassium, bld 3.3 3.3 - 4.9 mmol/L Blood 08/03/2024 4:20 PM CDT 08/03/2024 4:30 PM CDT Leonor Quan MD LAB BLOOD ORDERABLES Fi nal Result Performing Organization Address [facility] de Phone Number [facility] [place] [address] * TRANSTHORACIC ECHO (TTE) LIMITED/FOLLOW UP W LTD DOPPLER/CF W CONTRAST (08/03/2024 3:57 PM CDT) Pathologist [facility] LV EF 26 % CARDIOREPORT Anatomical Region Laterality Modality Ultrasound 08/03/2024 3:15 PM CDT Narrative 08/03/2024 4:04 PM CDT Patient name: Abiel Fink Date of test: 08/03/2024 [facility] #: 0 Date of : 1950 (M) Dtp Operator: Jojo Chapa RDCS Referring Physician: SHANTAL ELIZABETH MD Contrast Agent: 0.8 ml Optison Administered, (2.2 ml wasted). Contrast Administered by: [employer] MARKETING ASSOCIATE Supervised/Interpreted by: Eric Roberts MD Diagnosis: chf Location: [facility] Reason for test: Evaluate LV prior to PPM placement MV Structure: Normal, ?MV Motion: Normal, ?? Mitral Annulus: calcified AV Structure: tricuspid and is Normal, ?? AV Motion: Normal Aotic root: Normal, ?TM: Normal, ?? PV: Normal Valvular Vegetations: none seen, ?Mass/Thrombi: none seen RA: Normal Measurements: ?M-Mode ?Normal ? Aotic Root: ? <3.8 ? LA: ? <4.0 ? RV: ? <2.8 ? LV(ED): ? <5.7 ? LV(ES): ? Variable ?2D Linear Normal ? Aotic Root: ? <4.0 ? Ao Indexed: ? <2.0 ? LA: ? <4.0 ? RV: ? <4.2 ? LV(ED): ? 6.2 cm ?<5.9 ? LV(ES): ? 5.2 cm ?<4.0 ?2D Vol. ?? Normal ?Indexed ?? Indexed Normal RA: ? 11-39 ? LA: ? 16-34 ? RV: ? <12.7 ? LV(ED): ? 150.0 ml ??62-150 ?68.6 ml/M2 ?<75 ? LV(ES): ? 111.0 ml ??21-61 ? 50.8 ml/M2 ?<32 ?3D Vol. ? Indexed Normal LV(ED): ?<75 ? LV(ES): ?<32 ? LV EF: 26 % (Mod. Gooden's) ?? (Normal: >=52%) ?? LV Septum: 0.7 cm ?(Normal: <1.0 cm) Wall Motion Scoring (1=Normal 2=Hypo 3=Akinetic 4=Dyskin./Aneurysm 0=Not visualized) Parasternal Long [place]:MAS=2 BAS=2 MIL=2 LORNE=2 Parasternal Short [place]:MAS=2 MIS=2 UT=2 MIL=2 MAL=2 MA=2 Apical 4 Chambers:=2 MIS=2 BIS=2 BAL=2 MAL=2 AL=2 AC=2 Apical 2 Chambers:AI=2 UT=2 BI=2 BA=2 MA=2 AA=2 AC=2 LV Global Longitudinal Strain: RV Global Longitudinal Strain: LV Function: Severe Global reduction in LV Ejection Fraction (EF<30%); EF via modified Gooden's. ?? (NOTE: If patient has irreversible LV Cardiac Dysfunction with EF<30%, they are at risk for Sudden Cardiac .) RV Function: Normal Septal Motion: paradoxic Pericardial Effusion: none seen Atrial Septum: Normal DOPPLER/COLOR FLOW DOPPLER RESULTS: Diastolic Function: indeterminate Tricuspid Valve: mild TV regurgitation Pulmonic Valve: Mild ND AV Regurgitation: Mid AR AV Stenosis: AV Area: ??cm2 AV Pressure Gradient (mmHg): Mean: 0, Peak:0 MV Regurgitation: Mod MR MV Stenosis: MV Area: ??cm2 MV Pressure Gradient (mmHg): Mean: 0 MV ERO: ??cm Regurg. Vol.: ??ml/beat Regurg. Frac.: ??% PA Pressure: 30-35 mmHg DOPPLER/COLOR FOLOW DOPPLER COMMENTS: Mid AR, Mod MR, mild TV regurgitation, Mild ND. Diastolic function: indeterminate CONTRAST: 0.8 ml Optison Administered, (2.2 ml wasted). SUMMARY: Technically difficult study. Midly enlagred LV size and decreased systolic function with LVEF 26%. Paradoxical septum wall motion abnormality Likely normal RV fucntion. LA is moderately dilated. Mod MR. Trace pericardial effusion. No previous study for the comparison. Confirmed on ??08/03/2024 - 16:04:01 by Eric Roberts MD By signing this report, the attending auditing manager certifies that he or she has personally supervised and interpreted the echocardiogram and has reviewed and or edited and agrees with the written comments contained within the report. Procedure Note Eric Roberts MD PhD - 08/03/2024 Patient name: Abiel Fink Date of test: 08/03/2024 Type of test: Limited TTE [facility] #: 0 Date of : 1950 (M) Dtp Operator: Jojo Chapa ROSEY Referring Physician: SHANTAL ELIZABETH MD Contrast Agent: 0.8 ml Optison Administered, (2.2 ml wasted). Contrast Administered by: [employer]ETING ASSOCIATE Supervised/Interpreted by: Eric Roberts MD Diagnosis: chf Location: [facility] Reason for test: Evaluate LV prior to PPM placement MV Structure: Normal, MV Motion: Normal, Mitral Annulus: calcified AV Structure: tricuspid and is Normal, AV Motion: Normal Aotic root: Normal, TM: Normal, PV: Normal Valvular Vegetations: none seen, Mass/Thrombi: none seen RA: Normal [...] 2=Hypo 3=Akinetic 4=Dyskin./Aneurysm 0=Not visualized) Parasternal Long [place]:MAS=2 BAS=2 MIL=2 LORNE=2 Parasternal Short [place]:MAS=2 MIS=2 UT=2 MIL=2 MAL=2 MA=2 Apical 4 Chambers:=2 MIS=2 BIS=2 BAL=2 MAL=2 AL=2 AC=2 Apical 2 Chambers:AI=2 UT=2 BI=2 BA=2 MA=2 AA=2 AC=2 LV Global [...] Valve: mild TV regurgitation Pulmonic Valve: Mild ND AV Regurgitation: Mid AR AV Stenosis: AV Area: cm2 AV Pressure Gradient (mmHg): Mean: 0, Peak:0 MV Regurgitation: Mod MR MV Stenosis: MV Area: cm2 MV Pressure Gradient (mmHg): Mean: 0 MV ERO: cm Regurg. Vol.: ml/beat Regurg. Frac.: % PA Pressure: 30-35 mmHg DOPPLER/COLOR FOLOW DOPPLER COMMENTS: Mid AR, Mod MR, mild TV regurgitation, Mild ND. Diastolic function: indeterminate CONTRAST: 0.8 ml Optison Administered, (2.2 ml wasted). SUMMARY: Technically difficult study. Midly enlagred LV size and decreased systolic function with LVEF 26%. Paradoxical septum wall motion abnormality Likely normal RV fucntion. LA is moderately dilated. Mod MR. Trace pericardial effusion. No previous study for the comparison. Confirmed on 08/03/2024 - 16:04:01 by Eric Roberts MD By signing this report, the attending auditing manager certifies that he or she has personally supervised and interpreted the echocardiogram and has reviewed and or edited and agrees with the written comments contained within the report. Shantal Elizabeth NP CV ECHO PROCEDURE S Final Result * POCT glucose (08/03/2024 12:25 PM CDT) Glucose, POC 168 70 - 199 mg/dL Blood 08/03/2024 12:2 5 PM CDT 08/03/2024 12:25 PM CDT Leonor Quan MD LAB POCT ORDERABLES - D EVICE Final Result Performing Organization Address [facility]/ZIP Co de Phone Number [facility] [place] [address] * Potassium, whole blood (08/03/2024 8:13 AM CDT) [facility] Potassium, bld 3.7 3.3 - 4.9 mmol/L Blood 08/03/2024 8:13 AM CDT 08/03/2024 8:19 AM CDT Leonor Quan MD LAB BLOOD ORDERABLES Fi nal Result Performing Organization Address [facility]/State/ZIP Co de Phone Number [facility] [place] [address] * POCT glucose (08/03/2024 8:10 AM CDT) Glucose, POC 152 70 - 199 mg/dL Blood 08/03/2024 8:10 AM CDT 08/03/2024 8:10 AM CDT Leonor Quan MD LAB POCT ORDERABLES - D EVICE Final Result [facility] [place] [address] * Critical Care (08/03/2024 7:13 AM CDT) Narrative Feng Sinclair MD - 08/03/2024 7:13 AM CDT Shantal Elizabeth NP ? 08/03/2024 ??4:54 PM Critical Care Performed by: Shantal Elizabeth NP Authorized by: Shantal Elizabeth NP ?? CRITICAL CARE: ??Team: ??83 CTICU ??Shift: ??AM ??Level of Billing: ??Critical Care ??My time spent with this patient was 90 minutes: Critical Provider Statement: I have seen and examined the patient on this day of service. I have reviewed and confirmed the history, physical exam, laboratory and radiologic data as documented in the signed ICU note. I have reviewed and discussed my treatment plan with the ICU team and other medical/systems consultant staff, making frequent assessments and decisions regarding this patient's complex medical care. Critical Care time was exclusive of time spent performing separately billed procedures, treating other patients, and teaching. This time was in addition to and separate from critical care provided by other practitioners in my group on this day of service. Critical Care was necessary to treat or prevent imminent or life-threatening deterioration of the following conditions: ? I spent time reviewing and interpreting data from bedside monitors, laboratory results, and imaging, I spent time discussing the management of this critically ill patient with consultants and the medical staff and I spent time documenting in the medical record us Shantal Elizabeth NP IN CLINIC/BEDSIDE ORDERABLES Final Result * Potassium, whole blood (08/03/2024 5:15 AM CDT) [facility] Potassium, bld 4.0 3.3 - 4.9 mmol/L Blood 08/03/2024 5:15 AM CDT 08/03/2024 5:23 AM CDT Leonor Quan MD LAB BLOOD ORDERABLES Fi nal Result Performing Organization Address City/[facility] Co de Phone Number [facility] Department [place] [address] * (ABNORMAL) CBC without differential (08/03/2024 5:09 AM CDT) WBC 12.1(H) 3.8 - 9.9 K/cumm Hgb 7.9(L) 13.0 - 17.5 g/dL [facility] Hct 24.1(L) 38.9 - 50.3 % [facility] Plt 189 150 - 400 K/cumm [facility] MPV 10.3 9.1 - 12.3 fL [facility] RBC 2.97(L) 4.30 - 5.80 M/cumm [facility] MCV 81.1(L) 81.3 - 96.4 fL [facility] MCH 26.6(L) 27.1 - 33.3 pg [facility] MCHC 32.8 32.3 - 35.7 g/dL [facility] RDW CV 16.6(H) 11.1 - 14.9 % [facility] RDW SD 48.1 35.7 - 48.1 fL [facility] NRBC abs 0.09(H) 0.00 - 0.01 K/cumm [facility] Blood 08/03/2024 5:09 AM CDT 08/03/2024 5:22 AM CDT us Erin Hawkins NP LAB BLOOD ORDERABLES Fi nal Result Performing Organization Address City/[facility]/ZIP Co de Phone Number [facility] [place] [address] * (ABNORMAL) Urinalysis, microscopic only (08/03/2024 5:01 AM CDT) WBC, ur 6-10(A) 0 - 5 /HPF RBC, ur >50(A) 0 - 2 /HPF [facility] Epithelial cells, squamous, ur 1-5 0 - 5 /HPF [facility] Mucous, ur Present(A) [facility] Hyaline casts, ur 1-5 0 - 10 /LPF [facility] Urine 08/03/2024 5:01 AM CDT 08/03/2024 5:07 AM CDT Erin Hawkins [employer] MAN LAB URINE ORDERABLES Fi nal Result [facility] [place] [address] * (ABNORMAL) Urinalysis reflex to microscopic (08/03/2024 5:01 AM CDT) Color, ur Straw Yellow Clarity, ur Clear Clear [facility] Specific gravity, ur 1.015 1.003 - 1.030 [facility] pH, urine 6.0 [facility] Comment: Interpretive Data ? Urine pH is affected by diet, medications, systemic acid-base disturbances, and renal tubular function. ??pH may affect urinary stone formation. ??For example, urine pH below 6.0 may help reduce the tendency for calcium phosphate stones and pH greater than 6.0 may reduce the tendency for uric acid stone formation. Source: [facility] Current Interpretive Data was last revised on 2017 Protein, ur ql Negative Negative [facility] Glucose, ur ql Negative Negative [facility] Ketones, ur Negative Negative [facility] Bilirubin, ur Negative Negative [facility] Blood, ur 3+(A) Negative [facility] Urobilinogen, ur <2.0 <2.0 mg/dL [facility] Nitrite, ur Negative Negative [facility] Leukocyte esterase, ur 1+(A) Negative [facility] UA reflex comment Reflex to microscopic UA will be performed. [facility] Urine 08/03/2024 5:01 AM CDT 08/03/2024 5:07 AM CDT Erin Hawkins NP LAB URINE ORDERABLES Fi nal Result Performing Organization Address [facility] Co de Phone Number GILLIAN Waters [facility] Department [place] [address] * Potassium, whole blood (08/03/2024 2:56 AM CDT) Potassium, bld 3.9 3.3 - 4.9 mmol/L Blood 08/03/2024 2:56 AM CDT 08/03/2024 3:03 AM CDT us Leonor Quan MD LAB BLOOD ORDERABLES Fi nal Result Performing Organization Address [facility] de Phone Number GILLIAN Waters [facility] [place] [address] * eGFR (08/03/2024 12:16 AM CDT) eGFR 66 >=60 mL/min/1. 73 m2 Comment: Interpretive Data [...] interpretive data was last reviewed 2021. Blood 08/03/2024 12:1 6 AM CDT 08/03/2024 12:27 AM CDT Amber KUHN LAB BLOOD ORDERABLES Fi nal Result Performing Organization Address City/[facility] Co de Phone Number [facility] [place] [place] [address] * Potassium, whole blood (08/03/2024 12:16 AM CDT) Potassium, bld 3.8 3.3 - 4.9 mmol/L Blood 08/03/2024 12:1 6 AM CDT 08/03/2024 12:27 AM CDT Leonor Quan MD LAB BLOOD ORDERABLES Fi nal Result Performing Organization Address [facility] Co de Phone Number [facility] [place] [employer] [address] * (ABNORMAL) Calcium, ionized (08/03/2024 12:16 AM CDT) Calcium, Ionized 4.11(L) 4.50 - 5.10 mg/dL Blood 08/03/2024 12:1 6 AM CDT 08/03/2024 12:27 AM CDT Leonor Quan MD LAB BLOOD ORDERABLES Fi nal Result Performing Organization Address City/[facility] de Phone Number [facility] [place] [employer] [address] * Phosphorus (08/03/2024 12:16 AM CDT) Phosphorus, pl 4.0 2.3 - 4.5 mg/dL Blood 08/03/2024 12:1 6 AM CDT 08/03/2024 12:27 AM CDT Leonor Quan MD LAB BLOOD ORDERABLES Fi nal Result Performing Organization Address City/[facility] Co de Phone Number [facility] [place] [address] * Magnesium (08/03/2024 12:16 AM CDT) Pathologist [facility] Magnesium 2.1 1.4 - 2.5 mg/dL Blood 08/03/2024 12:1 6 AM CDT 08/03/2024 12:27 AM CDT Leonor Quan MD LAB BLOOD ORDERABLES Fi nal Result Performing Organization Address [facility] de Phone Number [facility] [place] [address] * (ABNORMAL) Basic metabolic panel (08/03/2024 12:16 AM CDT) [facility] Sodium 138 135 - 145 mmol/L Potassium, pl 4.0 3.3 - 4.9 mmol/L [facility] Chloride 106 97 - 110 mmol/L [facility] CO2 24 22 - 32 mmol/L [facility] Anion gap 8 2 - 15 mmol/L [facility] BUN 40(H) 6 - 25 mg/dL [facility] Creatinine 1.18 0.80 - 1.30 mg/dL [facility] Glucose 130 70 - 199 mg/dL [facility] Comment: Interpretive Data Fasting glucose >/= [...] interpretive data was last revised 2022. Calcium 8.4(L) 8.5 - 10.3 mg/dL [facility] Blood 08/03/2024 12:1 6 AM CDT 08/03/2024 12:27 AM CDT Leonor Quan MD LAB BLOOD ORDERABLES Fi nal Result Performing Organization Address [facility] de Phone Number [facility] [place] [address] * (ABNORMAL) CBC without differential (08/03/2024 12:16 AM CDT) WBC 11.4(H) 3.8 - 9.9 K/cumm Hgb 7.7(L) 13.0 - 17.5 g/dL [facility] Hct 23.9(L) 38.9 - 50.3 % [facility] Plt 176 150 - 400 K/cumm [facility] MPV 10.1 9.1 - 12.3 fL [facility] RBC 2.92(L) 4.30 - 5.80 M/cumm [facility] MCV 81.8 81.3 - 96.4 fL [facility] MCH 26.4(L) 27.1 - 33.3 pg [facility] MCHC 32.2(L) 32.3 - 35.7 g/dL [facility] RDW CV 16.4(H) 11.1 - 14.9 % [facility] RDW SD 48.8(H) 35.7 - 48.1 fL [facility] NRBC abs 0.06(H) 0.00 - 0.01 K/cumm [facility] Blood 08/03/2024 12:1 6 AM CDT 08/03/2024 12:31 AM CDT Leonor Quan MD LAB BLOOD ORDERABLES Fi nal Result Performing Organization Address [facility] Co de Phone Number [facility] [place] [address] * POCT glucose (08/02/2024 7:50 PM CDT) Glucose, POC 121 70 - 199 mg/dL Blood 08/02/2024 7:50 PM CDT 08/02/2024 7:50 PM CDT Leonor Quan MD LAB POCT ORDERABLES - D EVICE Final Result Performing Organization Address [facility] Co de Phone Number [facility] [place] [address] * Potassium, whole blood (08/02/2024 7:50 PM CDT) Potassium, bld 3.6 3.3 - 4.9 mmol/L Blood 08/02/2024 7:50 PM CDT 08/02/2024 7:56 PM CDT Leonor Quan MD LAB BLOOD ORDERABLES Fi nal Result Performing Organization Address [facility] de Phone Number [facility] [place] [address] * Critical Care (08/02/2024 7:40 PM CDT) Narrative Feng Sinclair MD - 08/02/2024 7:40 PM CDT Erin Hawkins NP ? 08/03/2024 ??5:12 AM Critical Care Performed by: Erin Hawkins NP Authorized by: Erin Hawkins NP ?? CRITICAL CARE: ??Team: ??83 CTICU ??Shift: ??PM ??Level of Billing: ??Critical Care ??My time spent with this patient was 60 minutes: Critical Provider Statement: I have seen and examined the patient on this day of service. I have reviewed and confirmed the history, physical exam, laboratory and radiologic data as documented in the signed ICU note. I have reviewed and discussed my treatment plan with the ICU team and other medical/systems consultant staff, making frequent assessments and decisions regarding this patient's complex medical care. Critical Care time was exclusive of time spent performing separately billed procedures, treating other patients, and teaching. This time was in addition to and separate from critical care provided by other practitioners in my group on this day of service. Critical Care was necessary to treat or prevent imminent or life-threatening deterioration of the following conditions: ? I spent time reviewing and interpreting data from bedside monitors, laboratory results, and imaging, I spent time discussing the management of this critically ill patient with consultants and the medical staff and I spent time documenting in the medical record Erin Hawkins NP IN CLINIC/BEDSIDE ORDER AKILA Final Result * Potassium, whole blood (08/02/2024 6:07 PM CDT) Potassium, bld 3.5 3.3 - 4.9 mmol/L Blood 08/02/2024 6:07 PM CDT 08/02/2024 6:18 PM CDT Leonor Quan MD LAB BLOOD ORDERABLES Fi nal Result Performing Organization Address [facility]/ZIP Co de Phone Number [facility] [place] [address] * Type and screen (08/02/2024 6:07 PM CDT) Pathologist [facility] Janell, indirect Negative ABO Rh O Positive [facility] Blood 08/02/2024 6:07 PM CDT 08/02/2024 6:35 PM CDT Narrative [facility] - 08/02/2024 7:55 PM CDT Has the patient had Daratumumab or Isatuximab in the past 6 months?->Unknown Leonor Quan MD LAB BLOOD BANK TEST ORD ERABLES Final Result Performing Organization Address City/[facility]/ZIP Co de Phone Number [facility] [place] [address] * POCT glucose (08/02/2024 5:50 PM CDT) Glucose, POC 160 70 - 199 mg/dL Blood 08/02/2024 5:50 PM CDT 08/02/2024 5:50 PM CDT Leonor Quan MD LAB POCT ORDERABLES - D EVICE Final Result Performing Organization Address City/[facility]/ZIP Co de Phone Number [facility] [place] [address] * POCT glucose (08/02/2024 12:21 PM CDT) Glucose, POC 144 70 - 199 mg/dL Blood 08/02/2024 12:2 1 PM CDT 08/02/2024 12:21 PM CDT Leonor Quan MD LAB POCT ORDERABLES - D EVICE Final Result Performing Organization Address [facility] Co de Phone Number [facility] [place] [address] * POCT glucose (08/02/2024 7:52 AM CDT) Glucose, POC 120 70 - 199 mg/dL Blood 08/02/2024 7:52 AM CDT 08/02/2024 7:52 AM CDT Leonor Quan MD LAB POCT ORDERABLES - D EVICE Final Result Performing Organization Address City/[facility] Co de Phone Number [facility] [place] [address] * Critical Care (08/02/2024 6:00 AM CDT) Narrative Feng Sinclair MD - 08/02/2024 6:00 AM CDT Mala Latif NP ? 08/02/2024 ??4:50 PM Critical Care Performed by: Mala Latif NP Authorized by: Mala Latif NP ?? CRITICAL CARE: ??Team: ??83 CTICU ??Shift: ??AM ??Level of Billing: ??Critical Care ??My time spent with this patient was 90 minutes: Critical Provider Statement: I have seen and examined the patient on this day of service. I have reviewed and confirmed the history, physical exam, laboratory and radiologic data as documented in the signed ICU note. I have reviewed and discussed my treatment plan with the ICU team and other medical/systems consultant staff, making frequent assessments and decisions regarding this patient's complex medical care. Critical Care time was exclusive of time spent performing separately billed procedures, treating other patients, and teaching. This time was in addition to and separate from critical care provided by other practitioners in my group on this day of service. Critical Care was necessary to treat or prevent imminent or life-threatening deterioration of the following conditions: ? I spent time reviewing and interpreting data from bedside monitors, laboratory results, and imaging, I spent time discussing the management of this critically ill patient with consultants and the medical staff and I spent time documenting in the medical record us Mala Latif NP IN CLINIC/BEDSIDE LIU HERNANDEZ Final Result * Potassium, whole blood (08/02/2024 4:10 AM CDT) Potassium, bld 3.8 3.3 - 4.9 mmol/L Blood 08/02/2024 4:10 AM CDT 08/02/2024 4:17 AM CDT us Leonor Quan MD LAB BLOOD ORDERABLES Fi nal Result [facility] Department of Laboratories [place], [place] [id number] * eGFR (08/01/2024 11:31 PM CDT) eGFR 71 >=60 mL/min/1. 73 m2 [...] interpretive data was last reviewed 2021. Blood 08/01/2024 11:3 1 PM CDT 08/01/2024 11:55 PM CDT us Amber KUHN LAB BLOOD ORDERABLES Fi nal Result Performing Organization Address [facility] Co de Phone Number [facility] [place] [address] * Potassium, whole blood (08/01/2024 11:31 PM CDT) Potassium, bld 4.1 3.3 - 4.9 mmol/L Blood 08/01/2024 11:3 1 PM CDT 08/01/2024 11:39 PM CDT us Leonor Quan MD LAB BLOOD ORDERABLES Fi nal Result Performing Organization Address [facility] Co de Phone Number [facility] [place] [address] * (ABNORMAL) Calcium, ionized (08/01/2024 11:31 PM CDT) Pathologist [facility] Calcium, Ionized 4.40(L) 4.50 - 5.10 mg/dL Blood 08/01/2024 11:3 1 PM CDT 08/01/2024 11:40 PM CDT Leonor Quan MD LAB BLOOD ORDERABLES Fi nal Result Performing Organization Address City/[facility] [place] [address] * (ABNORMAL) Phosphorus (08/01/2024 11:31 PM CDT) [facility] Phosphorus, pl 4.6(H) 2.3 - 4.5 mg/dL Blood 08/01/2024 11:3 1 PM CDT 08/01/2024 11:55 PM CDT Leonor Quan MD LAB BLOOD ORDERABLES Fi nal Result Performing Organization Address [facility] de Phone Number [facility] [place] [address] * Magnesium (08/01/2024 11:31 PM CDT) [facility] Magnesium 2.1 1.4 - 2.5 mg/dL Blood 08/01/2024 11:3 1 PM CDT 08/01/2024 11:55 PM CDT Leonor Quan MD LAB BLOOD ORDERABLES Fi nal Result Performing Organization Address City/[facility] Co de Phone Number [facility] [place] [address] * (ABNORMAL) Basic metabolic panel (08/01/2024 11:31 PM CDT) Pathologist [facility] Sodium 142 135 - 145 mmol/L Potassium, pl 4.3 3.3 - 4.9 mmol/L [facility] Chloride 106 97 - 110 mmol/L [facility] CO2 22 22 - 32 mmol/L [facility] Anion gap 14 2 - 15 mmol/L [facility] BUN 41(H) 6 - 25 mg/dL [facility] Creatinine 1.11 0.80 - 1.30 mg/dL [facility] Glucose 123 70 - 199 mg/dL [facility] Comment: Interpretive Data Fasting glucose >/= [...] interpretive data was last revised 2022. Calcium 8.9 8.5 - 10.3 mg/dL [facility] Blood 08/01/2024 11:3 1 PM CDT 08/01/2024 11:55 PM CDT us Leonor Quan MD LAB BLOOD ORDERABLES Fi nal Result [facility] Department [place] [address] * (ABNORMAL) CBC without differential (08/01/2024 11:31 PM CDT) [facility] WBC 8.3 3.8 - 9.9 K/cumm Hgb 8.2(L) 13.0 - 17.5 g/dL [facility] Hct 25.5(L) 38.9 - 50.3 % [facility] Plt 154 150 - 400 K/cumm [facility] MPV 10.7 9.1 - 12.3 fL [facility] RBC 3.07(L) 4.30 - 5.80 M/cumm [facility] MCV 83.1 81.3 - 96.4 fL [facility] MCH 26.7(L) 27.1 - 33.3 pg [facility] MCHC 32.2(L) 32.3 - 35.7 g/dL [facility] RDW CV 16.2(H) 11.1 - 14.9 % [facility] RDW SD 48.8(H) 35.7 - 48.1 fL [facility] NRBC abs 0.09(H) 0.00 - 0.01 K/cumm [facility] Blood 08/01/2024 11:3 1 PM CDT 08/01/2024 11:54 PM CDT Result [facility] Leonor Quan MD LAB BLOOD ORDERABLES Fi nal Result Performing Organization Address [facility] de Phone Number [facility] Department [place] [address] * Potassium, whole blood (08/01/2024 8:24 PM CDT) Potassium, bld 4.2 3.3 - 4.9 mmol/L Blood 08/01/2024 8:24 PM CDT 08/01/2024 8:31 PM CDT Result [facility] Leonor Quan MD LAB BLOOD ORDERABLES Fi nal Result Performing Organization Address City/[facility]/ZIP Co de Phone Number [facility] Department [place] [address] * POCT glucose (08/01/2024 8:23 PM CDT) Glucose, POC 133 70 - 199 mg/dL Blood 08/01/2024 8:23 PM CDT 08/01/2024 8:23 PM CDT Leonor Quan MD LAB POCT ORDERABLES - D EVICE Final Result [facility] [place] [address] * (ABNORMAL) Blood gas, arterial (08/01/2024 5:04 PM CDT) pH, Art 7.40 7.35 - 7.45 PCO2, Arterial 36 35 - 45 mmHg [facility] PO2, Arterial 98 83 - 108 mmHg [facility] HCO3 Art (Calculated) 23 20 - 30 mmol/L [facility] BE, art -2 mmol/L [facility] Comment: Interpretive Data No Reference Range Established Current Interpretive Data was last revised on 2017 O2 Sat Art (Measured) 98(H) 90 - 95 % [facility] Blood 08/01/2024 5:04 PM CDT 08/01/2024 5:11 PM CDT Leonor Quan MD LAB BLOOD ORDERABLES Fi nal Result [facility] [place] [address] * POCT glucose (08/01/2024 4:22 PM CDT) Glucose, POC 127 70 - 199 mg/dL Blood 08/01/2024 4:22 PM CDT 08/01/2024 4:22 PM CDT Leonor Quan MD LAB POCT ORDERABLES - D EVICE Final Result Performing Organization Address City/[facility]/ZIP Co de Phone Number [facility] [place] [address] * Potassium, whole blood (08/01/2024 4:22 PM CDT) Potassium, bld 3.5 3.3 - 4.9 mmol/L Blood 08/01/2024 4:22 PM CDT 08/01/2024 4:29 PM CDT us Leonor Quan MD LAB BLOOD ORDERABLES Fi nal Result [facility] Department [place] [address] * XR Chest 1 View (08/01/2024 2:12 PM CDT) Anatomical Region Laterality Modality Body, Chest N/A Computed Radiogr aphy 08/01/2024 3:21 PM CDT Impressions 08/01/2024 3:30 PM CDT The current study is compared with the prior dated 07/31/2024 at 5:18 PM. ??Postsurgical changes of median sternotomy with sternal plates and screws. ??A right-sided internal jugular catheter is in place, tip overlies the superior vena cava. ??Increased retrocardiac opacification, likely representing worsening atelectasis and aspiration changes. ??No pulmonary mass. ??Probable small left and trace right pleural effusions, unchanged. ??No pneumothorax. ??The cardiomediastinal silhouette is stable with moderate cardiomegaly. Dictated by: Erin Dickens MD, PhD. The radiology attending physician has personally reviewed this study, and had reviewed and/or edited this written report and agrees with it. Electronically signed by: Roger Rodríguez M.D. Narrative 08/01/2024 3:30 PM CDT EXAMINATION: 1 view chest radiograph Procedure Note Roger Rodríguez MD - 08/01/2024 EXAMINATION: 1 view chest radiograph IMPRESSION: The current study is compared with the prior dated 07/31/2024 at 5:18 PM. Postsurgical changes of median sternotomy with sternal plates and screws. A right-sided internal jugular catheter is in place, tip overlies the superior vena cava. Increased retrocardiac opacification, likely representing worsening atelectasis and aspiration changes. No pulmonary mass. Probable small left and trace right pleural effusions, unchanged. No pneumothorax. The cardiomediastinal silhouette is stable with moderate cardiomegaly. Dictated by: Erin Dickens MD, PhD. The radiology attending physician has personally reviewed this study, and had reviewed and/or edited this written report and agrees with it. Electronically signed by: Roger Rodríguez M.D. us Analilia Reilly GREEN END MAN IMG XR PROCEDURES Tiffany l Result * POCT glucose (08/01/2024 11:54 AM CDT) Glucose, POC 121 70 - 199 mg/dL Blood 08/01/2024 11:5 4 AM CDT 08/01/2024 11:54 AM CDT Leonor Quan MD LAB POCT ORDERABLES - D EVICE Final Result Performing Organization Address [facility] Co de Phone Number [facility] Department [place] [address] * POCT glucose (08/01/2024 7:49 AM CDT) Glucose, POC 97 70 - 199 mg/dL Blood 08/01/2024 7:49 AM CDT 08/01/2024 7:49 AM CDT Leonor Quan MD LAB POCT ORDERABLES - D EVICE Final Result Performing Organization Address [facility] de Phone Number [facility] [place] [address] * Critical Care (08/01/2024 6:00 AM CDT) Narrative Feng Sinclair MD - 08/01/2024 6:00 AM CDT Mala Latif NP ? 08/01/2024 ??4:41 PM Critical Care Performed by: Mala Latif NP Authorized by: Mala Latif NP ?? CRITICAL CARE: ??Team: ??83 CTICU ??Shift: ??AM ??Level of Billing: ??Critical Care ??My time spent with this patient was 100 minutes: Critical Provider Statement: I have seen and examined the patient on this day of service. I have reviewed and confirmed the history, physical exam, laboratory and radiologic data as documented in the signed ICU note. I have reviewed and discussed my treatment plan with the ICU team and other medical/systems consultant staff, making frequent assessments and decisions regarding this patient's complex medical care. Critical Care time was exclusive of time spent performing separately billed procedures, treating other patients, and teaching. This time was in addition to and separate from critical care provided by other practitioners in my group on this day of service. Critical Care was necessary to treat or prevent imminent or life-threatening deterioration of the following conditions: ? I spent time reviewing and interpreting data from bedside monitors, laboratory results, and imaging, I spent time discussing the management of this critically ill patient with consultants and the medical staff and I spent time documenting in the medical record Mala Latif NP IN CLINIC/BEDSIDE LIU HERNANDEZ Final Result * Potassium, whole blood (08/01/2024 5:24 AM CDT) Pathologist [facility] Potassium, bld 4.0 3.3 - 4.9 mmol/L Blood 08/01/2024 5:24 AM CDT 08/01/2024 5:33 AM CDT Leonor Quan MD LAB BLOOD ORDERABLES Fi nal Result [facility] Department of Laboratories [place], [place] [id number] * eGFR (07/31/2024 11:16 PM CDT) Pathologist [facility] eGFR 75 >=60 mL/min/1. 73 m2 Comment: Interpretive Data [...] interpretive data was last reviewed 2021. Blood 07/31/2024 11:1 6 PM CDT 07/31/2024 11:29 PM CDT Amber KUHN LAB BLOOD ORDERABLES Fi nal Result Performing Organization Address [facility] de Phone Number [facility] Department [place] [address] * Potassium, whole blood (07/31/2024 11:16 PM CDT) Potassium, bld 3.6 3.3 - 4.9 mmol/L Blood 07/31/2024 11:1 6 PM CDT 07/31/2024 11:23 PM CDT Leonor Quan MD LAB BLOOD ORDERABLES Fi nal Result Performing Organization Address [facility] de Phone Number [facility] Department [place] [address] * Calcium, ionized (07/31/2024 11:16 PM CDT) Calcium, Ionized 4.63 4.50 - 5.10 mg/dL Blood 07/31/2024 11:1 6 PM CDT 07/31/2024 11:29 PM CDT Leonor Quan MD LAB BLOOD ORDERABLES Fi nal Result [facility] [place] [address] * Phosphorus (07/31/2024 11:16 PM CDT) [facility] Phosphorus, pl 3.5 2.3 - 4.5 mg/dL Blood 07/31/2024 11:1 6 PM CDT 07/31/2024 11:29 PM CDT Leonor Quan MD LAB BLOOD ORDERABLES Fi nal Result Performing Organization Address [facility] Co de Phone Number [facility] [place] [address] * Magnesium (07/31/2024 11:16 PM CDT) [facility] Magnesium 2.1 1.4 - 2.5 mg/dL Blood 07/31/2024 11:1 6 PM CDT 07/31/2024 11:29 PM CDT Leonor Quan MD LAB BLOOD ORDERABLES Fi nal Result Performing Organization Address City/[facility] Co de Phone Number [facility] [place] [employer] [address] * (ABNORMAL) Basic metabolic panel (07/31/2024 11:16 PM CDT) [facility] Sodium 144 135 - 145 mmol/L Potassium, pl 3.9 3.3 - 4.9 mmol/L [facility] Chloride 109 97 - 110 mmol/L [facility] CO2 25 22 - 32 mmol/L [facility] Anion gap 10 2 - 15 mmol/L [facility] BUN 46(H) 6 - 25 mg/dL [facility] Creatinine 1.06 0.80 - 1.30 mg/dL [facility] Glucose 119 70 - 199 mg/dL [facility] Comment: Interpretive Data Fasting glucose >/= [...] 2022. Calcium 8.1(L) 8.5 - 10.3 mg/dL [facility] Blood 07/31/2024 11:1 6 PM CDT 07/31/2024 11:29 PM CDT us Leonor Quan MD LAB BLOOD ORDERABLES nal Result [facility] [place] [address] * (ABNORMAL) CBC without differential (07/31/2024 11:16 PM CDT) [facility] WBC 5.6 3.8 - 9.9 K/cumm Hgb 7.4(L) 13.0 - 17.5 g/dL [facility] Hct 24.4(L) 38.9 - 50.3 % [facility] Plt 121(L) 150 - 400 K/cumm [facility] MPV 10.5 9.1 - 12.3 fL [facility] RBC 2.86(L) 4.30 - 5.80 M/cumm [facility] MCV 85.3 81.3 - 96.4 fL [facility] MCH 25.9(L) 27.1 - 33.3 pg [facility] MCHC 30.3(L) 32.3 - 35.7 g/dL [facility] RDW CV 16.5(H) 11.1 - 14.9 % [facility] RDW SD 50.6(H) 35.7 - 48.1 fL [facility] NRBC abs 0.10(H) 0.00 - 0.01 K/cumm [facility] Blood 07/31/2024 11:1 6 PM CDT 07/31/2024 11:29 PM CDT Leonor Quan MD LAB BLOOD ORDERABLES Fi nal Result Performing Organization Address City/[facility] Co de Phone Number [facility] [place] [address] * POCT glucose (07/31/2024 8:20 PM CDT) Glucose, POC 161 70 - 199 mg/dL Blood 07/31/2024 8:20 PM CDT 07/31/2024 8:20 PM CDT Leonor Quan MD LAB POCT ORDERABLES - D EVICE Final Result Performing Organization Address City/[facility] Co de Phone Number [facility] [place] [address] * Potassium, whole blood (07/31/2024 8:20 PM CDT) Potassium, bld 3.6 3.3 - 4.9 mmol/L Blood 07/31/2024 8:20 PM CDT 07/31/2024 8:28 PM CDT Leonor Quan MD LAB BLOOD ORDERABLES Fi nal Result Performing Organization Address City/[facility] Co de Phone Number [facility] [place] [address] * Critical Care (07/31/2024 6:44 PM CDT) Narrative Feng Sinclair MD - 07/31/2024 6:44 PM CDT Payton Fernando NP ? 08/01/2024 ??5:08 AM Critical Care Performed by: Payton Fernando NP Authorized by: Payton Fernando NP ?? CRITICAL CARE: ??Team: ??83 CTICU ??Shift: ??PM ??Level of Billing: ??Subsequent Hospital Visit Level 3 ??My time spent with this patient was 60 minutes: Critical Provider Statement: I have seen and examined the patient on this day of service. I have reviewed and confirmed the history, physical exam, laboratory, and radiographic data as documented in the ICU note. I have reviewed and discussed my treatment plan with the patient's team and other medical/systems consultant staff. This time was in addition to and separate from care provided by other practitioners on this day of service. ? I spent time reviewing and interpreting data from bedside monitors, laboratory results, and imaging, I spent time discussing the management of this critically ill patient with consultants and the medical staff and I spent time documenting in the medical record us Payton Fernando NP IN CLINIC/BEDSIDE ORDERABLES F inal Result * XR Chest 1 View (07/31/2024 6:00 PM CDT) Anatomical Region Laterality Modality Body, Chest N/A Digital Radiogra phy 07/31/2024 6:14 PM CDT Impressions 07/31/2024 6:14 PM CDT Comparison 07/30/2024 5:58 PM. ??Sternal plates intact. Right internal jugular central venous catheter tip overlies the superior vena cava. ??[place] catheter has been removed. Cardiomediastinal silhouette in keeping with postoperative change. Mild left lower lobe atelectasis and small left pleural effusion again seen. ??Trace pulmonary edema may be present. ??No definite pneumothorax seen. Electronically signed by: Serafin Terrell M.D. Narrative 07/31/2024 6:14 PM CDT EXAMINATION: 1 view chest radiograph Procedure Note Serafin Terrell MD - 07/31/2024 EXAMINATION: 1 view chest radiograph IMPRESSION: Comparison 07/30/2024 5:58 PM. Sternal plates intact. Right internal jugular central venous catheter tip overlies the superior vena cava. [place] catheter has been removed. Cardiomediastinal silhouette in keeping with postoperative change. Mild left lower lobe atelectasis and small left pleural effusion again seen. Trace pulmonary edema may be present. No definite pneumothorax seen. Electronically signed by: Serafin Terrell M.D. us Mala Pineda GREEN END MAN IMG XR PROCEDURES Final Resu lt * Potassium, whole blood (07/31/2024 4:59 PM CDT) Potassium, bld 3.4 3.3 - 4.9 mmol/L Blood 07/31/2024 4:59 PM CDT 07/31/2024 5:06 PM CDT us Leonor Quan MD LAB BLOOD ORDERABLES Fi nal Result Performing Organization Address City/[facility]/ZIP Co de Phone Number [facility] Department [place] [address] * POCT glucose (07/31/2024 4:57 PM CDT) Glucose, POC 130 70 - 199 mg/dL Blood 07/31/2024 4:57 PM CDT 07/31/2024 4:57 PM CDT Leonor Quan MD LAB POCT ORDERABLES - D EVICE Final Result [facility] [place] [address] * GENERAL (07/31/2024 12:53 PM CDT) Narrative Leonor Quan MD - 07/31/2024 12:53 PM CDT Leonor Quan MD ? 07/31/2024 ??1:05 PM Pulmonary Artery Catheter Removal Date/Time: 07/31/2024 12:53 PM Performed by: Leonor Quan MD Authorized by: Leonor Quan MD ?? [place] Protocol: RN Notified of Procedure: yes ?? Informed consent: ??Risks, benefits, alternatives discussed and patient/solar sales representative and assessor/guardian agrees and accepts Patient's stated name/ matches armband: ??Yes Allergies confirmed: yes ?? Imaging: ??Pertinent imaging reviewed, correctly oriented and match to patient identifiers Supplies, devices and special equipment are available: yes ?? Site/side marked: yes Immediately prior to the procedure a time out was called: a verbal verification by the procedure participants confirmed correct patient identity, correct site/side marked and visible (if applicable); agreement on procedure to be done; and correct patient positioning ?? Anesthesia (see MAR for exact dosage) Anesthesia method: ??Local infiltration Local anesthetic: ??Lidocaine 1% Hand hygiene performed: Yes ?? PPE (including eye protection) in place as appropriate to the procedure: Yes ?? Preparation: Patient was prepped using appropriate disinfectant and draped using sterile technique as needed ?? Procedure details: ?? Percutaneous removal of knotted pulmonary artery catheter at bedside using the Osgood technique (Intensive Care Medicine, 1996). ??The patient was placed in gentle Trendelenburg position. ??The dressing was removed. ?? The skin around the catheter was prepped with chlorhexidine, as was the catheter. ??10 mL 1% lidocaine was infiltrated. ??The catheter was withdrawn into the sheath in the usual fashion without resistance until, at 8 cm, resistance was met. ??The catheter was pulled harder against the sheath to tighten the knot. ??It took some widening of the tract with the #11 blade and gentle dilation, but eventually it pulled out intact. ??A [id number] 2-0 Prolene suture was used to close the tract. ??There was no bleeding. ?? Patient tolerance: ??Patient tolerated the procedure well with no immediate complications Post Procedure Debrief: All guidewires, needles, sponges or other items are accounted for: yes ?? Any special post procedure monitoring, testing or other considerations: n/a ?? All specimens identified, labeled and matched to patient identification: n/a ?? Responsible alliance party for transporting specimen(s) to lab determined: n/a ?? Leonor Quan MD IN CLINIC/BEDSIDE ORDER AKILA Final Result * POCT glucose (07/31/2024 11:24 AM CDT) Glucose, POC 106 70 - 199 mg/dL Blood 07/31/2024 11:2 4 AM CDT 07/31/2024 11:24 AM CDT Leonor Quan MD LAB POCT ORDERABLES - D EVICE Final Result Performing Organization Address City/[facility]/ZIP Co de Phone Number [facility] Department [place] [address] * Potassium, whole blood (07/31/2024 11:24 AM CDT) Potassium, bld 3.5 3.3 - 4.9 mmol/L Blood 07/31/2024 11:2 4 AM CDT 07/31/2024 11:33 AM CDT Result [facility] Leonor Quan MD LAB BLOOD ORDERABLES Fi nal Result Performing Organization Address City/[facility]/ZIP Co de Phone Number [facility] [place] [address] * AIR CARGO SPECIALIST SUPERVISOR Evaluation and Treatment (07/31/2024 8:56 AM CDT) Narrative Erin Zaragoza AIR CARGO SPECIALIST SUPERVISOR - 07/31/2024 8:56 AM CDT Erin Zaragoza AIR CARGO SPECIALIST SUPERVISOR ? 07/31/2024 ??9:46 AM Speech-Language Pathology: Clinical Bedside Swallow HPI/PMH 74 y.o. yo male w/ PMHx of HTN, HLD, CAD, moderate MR, 2nd degree av block, asthma, JACQUELINE, pHTN, hepatic steatosis, GERD, hiatal hernia, DM Type II (Hgb A1c7.5), hx of pituitary adenoma, and obesity. Patient with worsening shortness of breath and functional status. He was referred to [facility] for surgical management. 07/24: CABG x 3 (BURGESS to LAD, left radial to OM, SVG to PDA and sternal plating. Patient did have significant radial artery spasm, treated with papaverine and nitroglycerin. Prior to the case, patient with known RV dysfunction. During EMILE, RV function improved with MAPs in the 80s, so levophed continued. OR totals: 1L crystalloid, 1 unit PRBC, 1 unit FFP, 1 unit PLT. A and V wires placed. MCT x 2 and bilateral chest tubes. Changed from GROVE SUPERINTENDENT to Epi. 07/25: Inhaled Veletri added for worsening RV dysfunction. Passed chapo swallow screen 07/26: Unable to wean Veletri d/t increasing PA pressures 07/27: Veletri wean, epi at 0.05 07/28: Veletri weaned off Respiratory/Intubation Status: intubated 07/24, now RA Imaging: CXR (07/28)- Mild bibasilar atelectasis is similar to the prior study. ??Left lateral basilar haziness may be due to the atelectasis or small pleural effusion. ??No pulmonary edema, consolidation, or pneumothorax. Precautions: fall PLOF: Pt reported he prefers softer foods (like pasta) at baseline 2/2 edentulous and doesn't have dentures. No prior dysphagia. Self feeding. Current Diet Order: NPO pending AIR CARGO SPECIALIST SUPERVISOR re-evaluation General Information Abiel Fink 07/31/24 General Observations: Pt alert, conversational throughout evaluation. Following commands without difficulty. Pain Score: 0 - No pain If pain >4, was RN notified? N/A Patient Stated Goal/Comments: Pt asking for water and diet soda to drink. Clinical Impression & Professional Recommendations Diet Solids Recommendation: Mechanical soft (2/2 edentulous/no dentures. Can advance to regular diet and have pt select softer food choices as tolerated.) Diet Liquids Recommendations: Thin/regular Recommended Form of Medications: As tolerated (Pt reported he takes pills whole with sips of liquid.) Compensatory Strategies/Modifications: Slow rate, Small bites, Other (Comment) (take breaks if getting SOB when eating) ?? Assistance with feeding/swallowing: Intermittent supervision Dysphagia Diagnosis: No suspicion for oral pharyngeal dysphagia at this time. Overall Clinical Impression/Additional Information: Per comparison with initial AIR CARGO SPECIALIST SUPERVISOR evaluation note yesterday, pt's mental status significantly improved today. Alert and able to follow all verbal commands, participate in conversation. On oral mechanism exam, pt's palate appears droopy overall and hangs slightly lower on right but no other asymmetry observed, voice mildly husky, strong volitional and reflexive cough. No overt aspiration signs or pt complaints of dysphagia with ice chip, tsp water, and single/sequential drinks of water via straw, purees, hard solids. Is edentulous and said he hasn't gotten dentures yet, prefers soft foods like pasta. Mild SOB noted intermittently during mastication but pt takes breaks and RR/SpO2 remain WNL, full oral clearance/no residue after food trials. MASA score improved from 140/200 to 190/200 today. Education provided to pt on mechanical soft vs regular diet and option to advance as tolerated if needed for more food choices. Pt verbalized understanding. Assessment Details & Results Consistencies Administered: Ice chips, Thin liquids, Purees, Solids MASA: Solorzano Assessment of Swallowing Ability (MASA) Alertness: Alert Cooperation: Cooperative Auditory Comprehension: No abnormality detected Respiration: Course basal crepitation/chest physiotherapy Respiratory Rate (for swallow): Able to control breath rate for swallow Aphasia: No abnormality detected Apraxia: No abnormality detected Dysarthria: No abnormality detected Saliva: No abnormality detected Lip Seal: No abnormality detected Tongue Movement: Full range of motion Tongue Strength: No abnormality detected Tongue Coordination: No abnormality detected Gag: Hyperreflexive/no abnormality detected Palate: Slight asymmetry/mobile (hangs slightly lower on right side) Cough Reflex: No deficit noted Voluntary Cough: No abnormality detected Voice: Mild impairment/slight huskiness Trach: No trach Oral Preparation: No deficits noted Bolus Clearance: Fully cleared Oral Transit: No deficits noted Pharyngeal Phase: Immediate laryngeal elevation Pharyngeal Response: No deficits noted MASA Score: 190 Dysphagia: No dysphagia detected (178-200) Aspiration Risk: No aspiration risk (170-200) Score Interpretation: MASA score improved from 140/200 yesterday. Plan AIR CARGO SPECIALIST SUPERVISOR Frequency of Services during current admission: Discharge from this Service AIR CARGO SPECIALIST SUPERVISOR Recommendation (Add'l Services): No further AIR CARGO SPECIALIST SUPERVISOR indicated Next Visit Plan: No further AIR CARGO SPECIALIST SUPERVISOR visits planned in acute care; please re-refer if additional dysphagia concerns arise. Please reference care plan for treatment goals, if indicated. Discharge Summary Statement If this is the last swallow therapy visit, this serves as the discharge summary. us Shantal Elizabeth GREEN END MAN AIR CARGO SPECIALIST SUPERVISOR ORDERABLES F inal Result * POCT glucose (07/31/2024 7:38 AM CDT) Glucose, POC 121 70 - 199 mg/dL Blood 07/31/2024 7:38 AM CDT 07/31/2024 7:38 AM CDT us Leonor Quan MD LAB POCT ORDERABLES - D EVICE Final Result Performing Organization Address City/State/[facility] Co de Phone Number [facility] [place] [address] * Critical Care (07/31/2024 6:00 AM CDT) Narrative Feng Sinclair MD - 07/31/2024 6:00 AM CDT Mala Latif NP ? 07/31/2024 ??8:57 PM Critical Care Performed by: Mala Latif NP Authorized by: Mala Latif NP ?? CRITICAL CARE: ??Team: ??83 CTICU ??Shift: ??AM ??Level of Billing: ??Critical Care ??My time spent with this patient was 110 minutes: Critical Provider Statement: I have seen and examined the patient on this day of service. I have reviewed and confirmed the history, physical exam, laboratory and radiologic data as documented in the signed ICU note. I have reviewed and discussed my treatment plan with the ICU team and other medical/systems consultant staff, making frequent assessments and decisions regarding this patient's complex medical care. Critical Care time was exclusive of time spent performing separately billed procedures, treating other patients, and teaching. This time was in addition to and separate from critical care provided by other practitioners in my group on this day of service. Critical Care was necessary to treat or prevent imminent or life-threatening deterioration of the following conditions: ? I spent time reviewing and interpreting data from bedside monitors, laboratory results, and imaging, I spent time discussing the management of this critically ill patient with consultants and the medical staff and I spent time documenting in the medical record Mala Latif NP IN CLINIC/BEDSIDE LIU HERNANDEZ Final Result * (ABNORMAL) Blood gas, arterial (07/31/2024 4:22 AM CDT) pH, Art 7.44 7.35 - 7.45 PCO2, Arterial 39 35 - 45 mmHg [facility] PO2, Arterial 114(H) 83 - 108 mmHg [facility] HCO3 Art (Calculated) 27 20 - 30 mmol/L [facility] BE, art 2 mmol/L [facility] Comment: Interpretive Data No Reference Range Established Current Interpretive Data was last revised on 2017 O2 Sat Art (Measured) 99(H) 90 - 95 % [facility] Blood 07/31/2024 4:22 AM CDT 07/31/2024 4:28 AM CDT Leonor Quan MD LAB BLOOD ORDERABLES Fi nal Result [facility] Department [place] [address] * (ABNORMAL) Hemoglobin total, pulmonary artery (07/31/2024 4:22 AM CDT) Hemoglobin total, PA 8.1(L) 13.0 - 17.5 g/dL Blood 07/31/2024 4:22 AM CDT 07/31/2024 4:28 AM CDT Amber KUHN LAB BLOOD ORDERABLES Fi nal Result [facility] [place] [address] * Oxyhemoglobin, pulmonary artery (07/31/2024 4:22 AM CDT) Oxyhemoglobin, PA 55.5 % Comment: Interpretive Data No reference range established. Current interpretive data was last revised 2020. Blood 07/31/2024 4:22 AM CDT 07/31/2024 4:28 AM CDT Amber KUHN LAB BLOOD ORDERABLES Fi nal Result Performing Organization Address [facility] Co de Phone Number [facility] [place] [address] * Potassium, whole blood (07/31/2024 4:22 AM CDT) Potassium, bld 3.5 3.3 - 4.9 mmol/L Blood 07/31/2024 4:22 AM CDT 07/31/2024 4:28 AM CDT Leonor Quan MD LAB BLOOD ORDERABLES Fi nal Result Performing Organization Address [facility] de Phone Number [facility] [place] [address] * eGFR (07/30/2024 11:39 PM CDT) eGFR 64 >=60 mL/min/1. 73 m2 Comment: Interpretive Data [...] interpretive data was last reviewed 2021. Blood 07/30/2024 11:3 9 PM CDT 07/31/2024 12:14 AM CDT Amber KUHN LAB BLOOD ORDERABLES nal Result Performing Organization Address [facility] Co de Phone Number [facility] [place] [address] * (ABNORMAL) Blood gas, arterial (07/30/2024 11:39 PM CDT) pH, Art 7.44 7.35 - 7.45 PCO2, Arterial 38 35 - 45 mmHg [facility] PO2, Arterial 114(H) 83 - 108 mmHg [facility] HCO3 Art (Calculated) 27 20 - 30 mmol/L [facility] BE, art 2 mmol/L [facility] Comment: Interpretive Data No Reference Range Established Current Interpretive Data was last revised on 2017 O2 Sat Art (Measured) 99(H) 90 - 95 % [facility] Blood 07/30/2024 11:3 9 PM CDT 07/30/2024 11:53 PM CDT Leonor Quan MD LAB BLOOD ORDERABLES Fi nal Result Performing Organization Address [facility] Co de Phone Number [facility] Department [place] [address] * Oxyhemoglobin, pulmonary artery (07/30/2024 11:39 PM CDT) Oxyhemoglobin, PA 62.1 % Comment: Interpretive Data No reference range established. Current interpretive data was last revised 2020. Blood 07/30/2024 11:3 9 PM CDT 07/30/2024 11:53 PM CDT Amber KUHN LAB BLOOD ORDERABLES Fi nal Result Performing Organization Address City/[facility]/ZIP Co de Phone Number [facility] [place] [address] * (ABNORMAL) Hemoglobin total, pulmonary artery (07/30/2024 11:39 PM CDT) Hemoglobin total, PA 7.7(L) 13.0 - 17.5 g/dL Blood 07/30/2024 11:3 9 PM CDT 07/30/2024 11:53 PM CDT Amber KUHN LAB BLOOD ORDERABLES Fi nal Result Performing Organization Address City/[facility] Co de Phone Number [facility] [place] [address] * Calcium, ionized (07/30/2024 11:39 PM CDT) Calcium, Ionized 4.68 4.50 - 5.10 mg/dL Blood 07/30/2024 11:3 9 PM CDT 07/30/2024 11:53 PM CDT Leonor Quan MD LAB BLOOD ORDERABLES Fi nal Result [facility] [place] [address] * Phosphorus (07/30/2024 11:39 PM CDT) Phosphorus, pl 3.6 2.3 - 4.5 mg/dL Blood 07/30/2024 11:3 9 PM CDT 07/31/2024 12:14 AM CDT Leonor Quan MD LAB BLOOD ORDERABLES Fi nal Result Performing Organization Address City/[facility] Co de Phone Number [facility] [place] [address] * Magnesium (07/30/2024 11:39 PM CDT) [facility] Magnesium 2.1 1.4 - 2.5 mg/dL Blood 07/30/2024 11:3 9 PM CDT 07/31/2024 12:14 AM CDT Leonor Quan MD LAB BLOOD ORDERABLES Fi nal Result Performing Organization Address [facility] de Phone Number [facility] Department [place] [address] * (ABNORMAL) Basic metabolic panel (07/30/2024 11:39 PM CDT) [facility] Sodium 148(H) 135 - 145 mmol/L Potassium, pl 3.3 3.3 - 4.9 mmol/L [facility] Chloride 109 97 - 110 mmol/L [facility] CO2 30 22 - 32 mmol/L [facility] Anion gap 9 2 - 15 mmol/L [facility] BUN 56(H) 6 - 25 mg/dL [facility] Creatinine 1.20 0.80 - 1.30 mg/dL [facility] Glucose 169 70 - 199 mg/dL [facility] Comment: Interpretive Data Fasting glucose >/= [...] interpretive data was last revised 2022. Calcium 8.5 8.5 - 10.3 mg/dL [facility] Blood 07/30/2024 11:3 9 PM CDT 07/31/2024 12:14 AM CDT Leonor Quan MD LAB BLOOD ORDERABLES Fi nal Result Performing Organization Address [facility] de Phone Number [facility] [place] [address] * (ABNORMAL) CBC without differential (07/30/2024 11:39 PM CDT) Pathologist [facility] WBC 4.0 3.8 - 9.9 K/cumm Hgb 7.3(L) 13.0 - 17.5 g/dL [facility] Hct 23.5(L) 38.9 - 50.3 % [facility] Plt 91(L) 150 - 400 K/cumm [facility] MPV 11.0 9.1 - 12.3 fL [facility] RBC 2.72(L) 4.30 - 5.80 M/cumm [facility] MCV 86.4 81.3 - 96.4 fL [facility] MCH 26.8(L) 27.1 - 33.3 pg [facility] MCHC 31.1(L) 32.3 - 35.7 g/dL [facility] RDW CV 16.8(H) 11.1 - 14.9 % [facility] RDW SD 52.2(H) 35.7 - 48.1 fL [facility] NRBC abs 0.14(H) 0.00 - 0.01 K/cumm [facility] Blood 07/30/2024 11:3 9 PM CDT 07/31/2024 12:14 AM CDT Leonor Quan MD LAB BLOOD ORDERABLES Fi nal Result Performing Organization Address [facility]/ZIP Co de Phone Number [facility] [place] [address] * POCT glucose (07/30/2024 8:05 PM CDT) Glucose, POC 162 70 - 199 mg/dL Blood 07/30/2024 8:05 PM CDT 07/30/2024 8:05 PM CDT us Leonor Quan MD LAB POCT ORDERABLES - D EVICE Final Result [facility] [place] [address] * Critical Care (07/30/2024 6:37 PM CDT) Narrative Feng Sinclair MD - 07/30/2024 6:37 PM CDT Payton Fernando NP ? 07/31/2024 ??5:40 AM Critical Care Performed by: Payton Fernando NP Authorized by: Payton Fernando NP ?? CRITICAL CARE: ??Team: ??83 CTICU ??Shift: ??PM ??Level of Billing: ??Critical Care ??My time spent with this patient was 85 minutes: Critical Provider Statement: I have seen and examined the patient on this day of service. I have reviewed and confirmed the history, physical exam, laboratory and radiologic data as documented in the signed ICU note. I have reviewed and discussed my treatment plan with the ICU team and other medical/systems consultant staff, making frequent assessments and decisions regarding this patient's complex medical care. Critical Care time was exclusive of time spent performing separately billed procedures, treating other patients, and teaching. This time was in addition to and separate from critical care provided by other practitioners in my group on this day of service. Critical Care was necessary to treat or prevent imminent or life-threatening deterioration of the following conditions: ? I spent time reviewing and interpreting data from bedside monitors, laboratory results, and imaging, I spent time discussing the management of this critically ill patient with consultants and the medical staff and I spent time documenting in the medical record us Payton Fernando NP IN CLINIC/BEDSIDE ORDERABLES F inal Result * XR Chest 1 View (07/30/2024 6:01 PM CDT) Anatomical Region Laterality Modality Body, Chest N/A Computed Radiogr aphy 07/31/2024 8:42 AM CDT Impressions 07/31/2024 8:42 AM CDT Comparison is made to chest radiograph dated 07/29/2024. Right internal jugular venous approach pulmonary artery catheter tip overlies the right pulmonary artery. ??Right internal jugular venous approach catheter tip overlies the confluence of the brachiocephalic veins and superior vena cava. ??The patient is status post median sternotomy with sternal plates and screws. No right lung consolidation. ??No definite right pleural effusion. Decreased small left pleural effusion and left basilar atelectasis. No right pneumothorax. ??Trace left pneumothorax, not definitely present on the prior study. ??Stable cardiomediastinal silhouette. Electronically signed by: Maria Dolores Garcia M.D. Narrative 07/31/2024 8:42 AM CDT EXAMINATION: 1 view chest radiograph Procedure Note Maria Dolores Garcia MD - 07/31/2024 EXAMINATION: 1 view chest radiograph IMPRESSION: Comparison is made to chest radiograph dated 07/29/2024. Right internal jugular venous approach pulmonary artery catheter tip overlies the right pulmonary artery. Right internal jugular venous approach catheter tip overlies the confluence of the brachiocephalic veins and superior vena cava. The patient is status post median sternotomy with sternal plates and screws. No right lung consolidation. No definite right pleural effusion. Decreased small left pleural effusion and left basilar atelectasis. No right pneumothorax. Trace left pneumothorax, not definitely present on the prior study. Stable cardiomediastinal silhouette. Electronically signed by: Maria Dolores Garcia M.D. us Mala Pineda NP IMG XR PROCEDURES Final Resu lt * POCT glucose (07/30/2024 5:01 PM CDT) Glucose, POC 181 70 - 199 mg/dL Blood 07/30/2024 5:01 PM CDT 07/30/2024 5:01 PM CDT Leonor Quan MD LAB POCT ORDERABLES - D EVICE Final Result Performing Organization Address [facility] Co de Phone Number [facility] [place] [address] * Type and screen (07/30/2024 5:01 PM CDT) [facility] ABO Rh O Positive Janell, indirect Negative [facility] Blood 07/30/2024 5:01 PM CDT 07/30/2024 5:13 PM CDT Narrative [facility] - 07/30/2024 6:00 PM CDT Has the patient had Daratumumab or Isatuximab in the past 6 months?->Unknown Leonor Quan MD LAB BLOOD BANK TEST ORD ERABLES Final Result Performing Organization Address [facility] Co de Phone Number [facility] [place] [address] * (ABNORMAL) eGFR (07/30/2024 12:13 PM CDT) [facility] eGFR 54(L) >=60 mL/min/1. 73 m2 Comment: Interpretive Data [...] interpretive data was last reviewed 2021. Blood 07/30/2024 12:1 3 PM CDT 07/30/2024 12:32 PM CDT Shantal Elizabeth NP LAB BLOOD ORDERAB LES Final Result [facility] [place] [address] * (ABNORMAL) Basic metabolic panel (07/30/2024 12:13 PM CDT) Pathologist [facility] Sodium 152(H) 135 - 145 mmol/L Potassium, pl 3.5 3.3 - 4.9 mmol/L [facility] Chloride 112(H) 97 - 110 mmol/L [facility] CO2 33(H) 22 - 32 mmol/L [facility] Anion gap 7 2 - 15 mmol/L [facility] BUN 56(H) 6 - 25 mg/dL [facility] Creatinine 1.38(H) 0.80 - 1.30 mg/dL [facility] Glucose 153 70 - 199 mg/dL [facility] Comment: Interpretive Data Fasting glucose >/= [...] interpretive data was last revised 2022. Calcium 8.6 8.5 - 10.3 mg/dL [facility] Blood 07/30/2024 12:1 3 PM CDT 07/30/2024 12:32 PM CDT Shantal Elizabeth NP LAB BLOOD ORDERAB LES Final Result Performing Organization Address [facility] Co de Phone Number [facility] [place] [address] * POCT glucose (07/30/2024 10:56 AM CDT) Glucose, POC 141 70 - 199 mg/dL Blood 07/30/2024 10:5 6 AM CDT 07/30/2024 10:56 AM CDT Result [facility] Leonor Quan MD LAB POCT ORDERABLES - D EVICE Final Result Performing Organization Address [facility] Co de Phone Number [facility] [place] [address] * POCT glucose (07/30/2024 7:50 AM CDT) Glucose, POC 173 70 - 199 mg/dL Blood 07/30/2024 7:50 AM CDT 07/30/2024 7:50 AM CDT Result [facility] Leonor Quan MD LAB POCT ORDERABLES - D EVICE Final Result Performing Organization Address City/[facility] Co de Phone Number [facility] [place] [address] * Critical Care (07/30/2024 7:48 AM CDT) Narrative Feng Sinclair MD - 07/30/2024 7:48 AM CDT Shantal Elizabeth NP ? 07/30/2024 ??4:40 PM Critical Care Performed by: Shantal Elizabeth NP Authorized by: Shantal Elizabeth NP ?? CRITICAL CARE: ??Team: ??83 CTICU ??Shift: ??AM ??Level of Billing: ??Critical Care ??My time spent with this patient was 75 minutes: Critical Provider Statement: I have seen and examined the patient on this day of service. I have reviewed and confirmed the history, physical exam, laboratory and radiologic data as documented in the signed ICU note. I have reviewed and discussed my treatment plan with the ICU team and other medical/systems consultant staff, making frequent assessments and decisions regarding this patient's complex medical care. Critical Care time was exclusive of time spent performing separately billed procedures, treating other patients, and teaching. This time was in addition to and separate from critical care provided by other practitioners in my group on this day of service. Critical Care was necessary to treat or prevent imminent or life-threatening deterioration of the following conditions: ? I spent time reviewing and interpreting data from bedside monitors, laboratory results, and imaging, I spent time discussing the management of this critically ill patient with consultants and the medical staff and I spent time documenting in the medical record us Shantal Elizabeth NP IN CLINIC/BEDSIDE ORDERABLES Final Result * (ABNORMAL) Hemoglobin total, pulmonary artery (07/30/2024 7:48 AM CDT) Hemoglobin total, PA 7.6(L) 13.0 - 17.5 g/dL Blood 07/30/2024 7:48 AM CDT 07/30/2024 8:03 AM CDT us Amber KUHN LAB BLOOD ORDERABLES Fi nal Result [facility] [place] [address] * Oxyhemoglobin, pulmonary artery (07/30/2024 7:48 AM CDT) Oxyhemoglobin, PA 70.7 % Comment: Interpretive Data No reference range established. Current interpretive data was last revised 2020. Blood 07/30/2024 7:48 AM CDT 07/30/2024 8:03 AM CDT Amber KUHN LAB BLOOD ORDERABLES Fi nal Result Performing Organization Address [facility] Co de Phone Number [facility] [place] [address] * (ABNORMAL) Blood gas, arterial (07/30/2024 7:48 AM CDT) pH, Art 7.46(H) 7.35 - 7.45 PCO2, Arterial 42 35 - 45 mmHg [facility] PO2, Arterial 148(H) 83 - 108 mmHg [facility] HCO3 Art (Calculated) 30 20 - 30 mmol/L [facility] BE, art 5 mmol/L [facility] Comment: Interpretive Data No Reference Range Established Current Interpretive Data was last revised on 2017 O2 Sat Art (Measured) 100(H) 90 - 95 % [facility] Blood 07/30/2024 7:48 AM CDT 07/30/2024 8:03 AM CDT Leonor Quan MD LAB BLOOD ORDERABLES nal Result Performing Organization Address [facility] de Phone Number [facility] [place] [address] * (ABNORMAL) eGFR (07/30/2024 1:01 AM CDT) eGFR 54(L) >=60 mL/min/1. 73 m2 Comment: Interpretive Data [...] interpretive data was last reviewed 2021. Blood 07/30/2024 1:01 AM CDT 07/30/2024 1:13 AM CDT Amber KUHN LAB BLOOD ORDERABLES Fi nal Result Performing Organization Address City/[facility]/ZIP Co de Phone Number GILLIAN [facility] [place] [address] * Phosphorus (07/30/2024 1:01 AM CDT) Phosphorus, pl 4.1 2.3 - 4.5 mg/dL Blood 07/30/2024 1:01 AM CDT 07/30/2024 1:13 AM CDT us Leonor Quan MD LAB BLOOD ORDERABLES Fi nal Result GILLIAN [facility] [place] [address] * Magnesium (07/30/2024 1:01 AM CDT) Magnesium 2.0 1.4 - 2.5 mg/dL Blood 07/30/2024 1:01 AM CDT 07/30/2024 1:13 AM CDT Leonor Quan MD LAB BLOOD ORDERABLES Fi nal Result Performing Organization Address City/[facility]/ZIP Co de Phone Number [facility] [place] [address] * (ABNORMAL) Basic metabolic panel (07/30/2024 1:01 AM CDT) [facility] Sodium 150(H) 135 - 145 mmol/L Potassium, pl 3.6 3.3 - 4.9 mmol/L [facility] Chloride 107 97 - 110 mmol/L [facility] CO2 34(H) 22 - 32 mmol/L [facility] Anion gap 9 2 - 15 mmol/L [facility] BUN 56(H) 6 - 25 mg/dL [facility] Creatinine 1.39(H) 0.80 - 1.30 mg/dL [facility] Glucose 148 70 - 199 mg/dL [facility] Comment: Interpretive Data Fasting glucose >/= [...] interpretive data was last revised 2022. Calcium 9.2 8.5 - 10.3 mg/dL [facility] Blood 07/30/2024 1:01 AM CDT 07/30/2024 1:13 AM CDT Leonor Quan MD LAB BLOOD ORDERABLES Fi nal Result Performing Organization Address [facility]/ZIP Co de Phone Number [facility] [place] [address] * (ABNORMAL) CBC without differential (07/30/2024 1:01 AM CDT) Pathologist [facility] WBC 3.8 3.8 - 9.9 K/cumm Hgb 7.6(L) 13.0 - 17.5 g/dL [facility] Hct 24.4(L) 38.9 - 50.3 % [facility] Plt 72(L) 150 - 400 K/cumm [facility] MPV 9.9 9.1 - 12.3 fL [facility] RBC 2.88(L) 4.30 - 5.80 M/cumm [facility] MCV 84.7 81.3 - 96.4 fL [facility] MCH 26.4(L) 27.1 - 33.3 pg [facility] MCHC 31.1(L) 32.3 - 35.7 g/dL [facility] RDW CV 17.1(H) 11.1 - 14.9 % [facility] RDW SD 52.5(H) 35.7 - 48.1 fL [facility] NRBC abs 0.20(H) 0.00 - 0.01 K/cumm [facility] Blood 07/30/2024 1:01 AM CDT 07/30/2024 1:13 AM CDT Leonor Quan MD LAB BLOOD ORDERABLES Fi nal Result [facility] Department [place] [address] * (ABNORMAL) Blood gas, arterial (07/29/2024 9:34 PM CDT) Pathologist [facility] pH, Art 7.48(H) 7.35 - 7.45 PCO2, Arterial 42 35 - 45 mmHg [facility] PO2, Arterial 130(H) 83 - 108 mmHg [facility] HCO3 Art (Calculated) 32(H) 20 - 30 mmol/L [facility] BE, art 7 mmol/L [facility] Comment: Interpretive Data No Reference Range Established Current Interpretive Data was last revised on 2017 O2 Sat Art (Measured) 99(H) 90 - 95 % [facility] Blood 07/29/2024 9:34 PM CDT 07/29/2024 9:43 PM CDT Leonor Quan MD LAB BLOOD ORDERABLES Fi nal Result Performing Organization Address City/[facility] Co de Phone Number [facility] [place] [address] * (ABNORMAL) Hemoglobin total, pulmonary artery (07/29/2024 9:34 PM CDT) Hemoglobin total, PA 7.8(L) 13.0 - 17.5 g/dL Blood 07/29/2024 9:34 PM CDT 07/29/2024 9:43 PM CDT Amber KUHN LAB BLOOD ORDERABLES Fi nal Result Performing Organization Address [facility] Co de Phone Number [facility] [place] [address] * Oxyhemoglobin, pulmonary artery (07/29/2024 9:34 PM CDT) Oxyhemoglobin, PA 61.1 % Comment: Interpretive Data No reference range established. Current interpretive data was last revised 2020. Blood 07/29/2024 9:34 PM CDT 07/29/2024 9:43 PM CDT Amber KUHN LAB BLOOD ORDERABLES Fi nal Result Performing Organization Address [facility] Co de Phone Number [facility] [place] [employer] [address] * POCT glucose (07/29/2024 8:34 PM CDT) Glucose, POC 138 70 - 199 mg/dL Blood 07/29/2024 8:34 PM CDT 07/29/2024 8:34 PM CDT Leonor Quan MD LAB POCT ORDERABLES - D EVICE Final Result [facility] [place] [address] * XR Chest 1 View (07/29/2024 6:51 PM CDT) Anatomical Region Laterality Modality Body, Chest N/A Digital Radiogra phy 07/30/2024 8:55 AM CDT Impressions 07/30/2024 8:55 AM CDT Comparison is made to chest radiograph dated 07/28/2024. Right internal jugular venous approach pulmonary artery catheter tip overlies the main pulmonary artery. ??Right internal jugular venous approach catheter tip overlies the superior vena cava. ??The patient is status post median sternotomy with sternal plates and screws. Interval removal of bilateral chest tubes, mediastinal drain, and pericardial drain. Increased small left pleural effusion with associated atelectasis. ??A small right pleural effusion may be present. ??No pneumothorax. Stable cardiomediastinal silhouette. Electronically signed by: Maria Dolores Garcia M.D. Narrative 07/30/2024 8:55 AM CDT EXAMINATION: 1 view chest radiograph Procedure Note Maria Dolores Garcia MD - 07/30/2024 EXAMINATION: 1 view chest radiograph IMPRESSION: Comparison is made to chest radiograph dated 07/28/2024. Right internal jugular venous approach pulmonary artery catheter tip overlies the main pulmonary artery. Right internal jugular venous approach catheter tip overlies the superior vena cava. The patient is status post median sternotomy with sternal plates and screws. Interval removal of bilateral chest tubes, mediastinal drain, and pericardial drain. Increased small left pleural effusion with associated atelectasis. A small right pleural effusion may be present. No pneumothorax. Stable cardiomediastinal silhouette. Electronically signed by: Maria Dolores Garcia M.D. Mala Pineda [employer] IMG XR PROCEDURES Final Resu lt * Critical Care (07/29/2024 6:41 PM CDT) Narrative Feng Sinclair MD - 07/29/2024 6:41 PM CDT Payton Fernando NP ? 07/30/2024 ??4:56 AM Critical Care Performed by: Payton Fernando NP Authorized by: Payton Fernando NP ?? CRITICAL CARE: ??Team: ??83 CTICU ??Shift: ??PM ??Level of Billing: ??Critical Care ??My time spent with this patient was 70 minutes: Critical Provider Statement: I have seen and examined the patient on this day of service. I have reviewed and confirmed the history, physical exam, laboratory and radiologic data as documented in the signed ICU note. I have reviewed and discussed my treatment plan with the ICU team and other medical/systems consultant staff, making frequent assessments and decisions regarding this patient's complex medical care. Critical Care time was exclusive of time spent performing separately billed procedures, treating other patients, and teaching. This time was in addition to and separate from critical care provided by other practitioners in my group on this day of service. Critical Care was necessary to treat or prevent imminent or life-threatening deterioration of the following conditions: ? I spent time reviewing and interpreting data from bedside monitors, laboratory results, and imaging, I spent time documenting in the medical record and I spent time discussing the management of this critically ill patient with consultants and the medical staff us Payton Fernando NP IN CLINIC/BEDSIDE ORDERABLES F inal Result * POCT glucose (07/29/2024 4:56 PM CDT) Glucose, POC 150 70 - 199 mg/dL Blood 07/29/2024 4:56 PM CDT 07/29/2024 4:56 PM CDT us Leonor Quan MD LAB POCT ORDERABLES - D EVICE Final Result CERNER [facility] [place] [address] * Potassium, whole blood (07/29/2024 4:54 PM CDT) Potassium, bld 3.9 3.3 - 4.9 mmol/L Blood 07/29/2024 4:54 PM CDT 07/29/2024 5:00 PM CDT [facility] 07/29/2024 5:03 PM CDT While on Bumex infusion Mala Krauseor [employer] LAB BLOOD ORDERABLES Final R esult [facility] [place] [address] * Oxyhemoglobin, pulmonary artery (07/29/2024 12:24 PM CDT) Oxyhemoglobin, PA 66.2 % Comment: Interpretive Data No reference range established. Current interpretive data was last revised 2020. Blood 07/29/2024 12:2 4 PM CDT 07/29/2024 12:32 PM CDT Result [facility] Elinor Paul [employer] LAB BLOOD ORDERABLES Fin al Result Performing Organization Address [facility] Co de Phone Number [facility] Department [place] [address] * Potassium, whole blood (07/29/2024 12:24 PM CDT) Potassium, bld 4.1 3.3 - 4.9 mmol/L Blood 07/29/2024 12:2 4 PM CDT 07/29/2024 12:32 PM CDT Narrative [facility] - 07/29/2024 12:42 PM CDT While on Bumex infusion Mala Krauseor [employer] LAB BLOOD ORDERABLES Final R esult Performing Organization Address City/[facility]/ZIP Co de Phone Number [facility] [place] [address] * (ABNORMAL) POCT glucose (07/29/2024 12:01 PM CDT) Glucose, POC 208(H) 70 - 199 mg/dL Blood 07/29/2024 12:0 1 PM CDT 07/29/2024 12:01 PM CDT Leonor Quan MD LAB POCT ORDERABLES - D EVICE Final Result Performing Organization Address [facility] [place] [address] * POCT glucose (07/29/2024 9:14 AM CDT) Glucose, POC 158 70 - 199 mg/dL Blood 07/29/2024 9:14 AM CDT 07/29/2024 9:14 AM CDT Leonor Quan MD LAB POCT ORDERABLES - D EVICE Final Result Performing Organization Address [facility] [place] [address] * Critical Care (07/29/2024 8:52 AM CDT) Narrative Feng Sinclair MD - 07/29/2024 8:52 AM CDT Shantal Elizabeth NP ? 07/29/2024 ??5:10 PM Critical Care Performed by: Shantal Elizabeth NP Authorized by: Shantal Elizabeth NP ?? CRITICAL CARE: ??Team: ??83 CTICU ??Shift: ??AM ??Level of Billing: ??Critical Care ??My time spent with this patient was 90 minutes: Critical Provider Statement: I have seen and examined the patient on this day of service. I have reviewed and confirmed the history, physical exam, laboratory and radiologic data as documented in the signed ICU note. I have reviewed and discussed my treatment plan with the ICU team and other medical/systems consultant staff, making frequent assessments and decisions regarding this patient's complex medical care. Critical Care time was exclusive of time spent performing separately billed procedures, treating other patients, and teaching. This time was in addition to and separate from critical care provided by other practitioners in my group on this day of service. Critical Care was necessary to treat or prevent imminent or life-threatening deterioration of the following conditions: ? I spent time reviewing and interpreting data from bedside monitors, laboratory results, and imaging, I spent time discussing the management of this critically ill patient with consultants and the medical staff and I spent time documenting in the medical record Result [facility] Shantal Elizabeth NP IN CLINIC/BEDSIDE ORDERABLES Final Result * (ABNORMAL) Blood gas, arterial (07/29/2024 8:38 AM CDT) pH, Art 7.48(H) 7.35 - 7.45 PCO2, Arterial 44 35 - 45 mmHg [facility] PO2, Arterial 137(H) 83 - 108 mmHg [facility] HCO3 Art (Calculated) 33(H) 20 - 30 mmol/L [facility] BE, art 8 mmol/L [facility] Comment: Interpretive Data No Reference Range Established Current Interpretive Data was last revised on 2017 O2 Sat Art (Measured) 100(H) 90 - 95 % [facility] Blood 07/29/2024 8:38 AM CDT 07/29/2024 8:45 AM CDT Leonor Quan MD LAB BLOOD ORDERABLES Fi nal Result [facility] Department of Laboratories [place], [place] [id number] * Oxyhemoglobin, pulmonary artery (07/29/2024 8:38 AM CDT) Oxyhemoglobin, PA 56.7 % Comment: Interpretive Data No reference range established. Current interpretive data was last revised 2020. Blood 07/29/2024 8:38 AM CDT 07/29/2024 8:45 AM CDT Amber KUHN LAB BLOOD ORDERABLES Fi nal Result Performing Organization Address City/[facility] Co de Phone Number [facility] [place] [address] * (ABNORMAL) Hemoglobin total, pulmonary artery (07/29/2024 8:38 AM CDT) Hemoglobin total, PA 8.2(L) 13.0 - 17.5 g/dL Blood 07/29/2024 8:38 AM CDT 07/29/2024 8:45 AM CDT Amber KUHN LAB BLOOD ORDERABLES Fi nal Result Performing Organization Address [facility] Co de Phone Number [facility] Department [place] [address] * Potassium, whole blood (07/29/2024 8:38 AM CDT) Potassium, bld 3.9 3.3 - 4.9 mmol/L Blood 07/29/2024 8:38 AM CDT 07/29/2024 8:45 AM CDT Narrative [facility] - 07/29/2024 8:53 AM CDT While on Bumex infusion Mala Pineda [employer] LAB BLOOD ORDERABLES Final R esult Performing Organization Address [facility] Co de Phone Number [facility] [place] [address] * Potassium, whole blood (07/29/2024 3:59 AM CDT) Potassium, bld 3.8 3.3 - 4.9 mmol/L Blood 07/29/2024 3:59 AM CDT 07/29/2024 4:07 AM CDT Narrative GILLIAN LYNN - 07/29/2024 4:11 AM CDT While on Bumex infusion Mala Pineda [employer] LAB BLOOD ORDERABLES Final R esult [facility] [place] [address] * eGFR (07/29/2024 12:31 AM CDT) eGFR 62 >=60 mL/min/1. 73 m2 Comment: Interpretive Data [...] interpretive data was last reviewed 2021. Blood 07/29/2024 12:3 1 AM CDT 07/29/2024 12:52 AM CDT Amber Rose PA LAB BLOOD ORDERABLES Fi nal Result Performing Organization Address City/[facility] Co de Phone Number [facility] [place] [address] * (ABNORMAL) Blood gas, arterial (07/29/2024 12:31 AM CDT) pH, Art 7.47(H) 7.35 - 7.45 PCO2, Arterial 41 35 - 45 mmHg [facility] PO2, Arterial 156(H) 83 - 108 mmHg [facility] HCO3 Art (Calculated) 31(H) 20 - 30 mmol/L [facility] BE, art 6 mmol/L [facility] Comment: Interpretive Data No Reference Range Established Current Interpretive Data was last revised on 2017 O2 Sat Art (Measured) 100(H) 90 - 95 % [facility] Blood 07/29/2024 12:3 1 AM CDT 07/29/2024 12:46 AM CDT Leonor Quan MD LAB BLOOD ORDERABLES Fi nal Result Performing Organization Address [facility] Co de Phone Number [facility] Department [place] [address] * Potassium, whole blood (07/29/2024 12:31 AM CDT) Pathologist [facility] Potassium, bld 3.9 3.3 - 4.9 mmol/L Blood 07/29/2024 12:3 1 AM CDT 07/29/2024 12:46 AM CDT Leonor Quan MD LAB BLOOD ORDERABLES Fi nal Result Performing Organization Address City/[facility] Co de Phone Number [facility] [place] [address] * Oxyhemoglobin, pulmonary artery (07/29/2024 12:31 AM CDT) Pathologist [facility] Oxyhemoglobin, PA 81.3 % Comment: Interpretive Data No reference range established. Current interpretive data was last revised 2020. Blood 07/29/2024 12:3 1 AM CDT 07/29/2024 12:46 AM CDT Amber KUHN LAB BLOOD ORDERABLES Fi nal Result Performing Organization Address City/[facility] Co de Phone Number [facility] [place] [employer] [place] [address] * Phosphorus (07/29/2024 12:31 AM CDT) Pathologist [facility] Phosphorus, pl 3.3 2.3 - 4.5 mg/dL Blood 07/29/2024 12:3 1 AM CDT 07/29/2024 12:52 AM CDT Leonor Quan MD LAB BLOOD ORDERABLES Fi nal Result Performing Organization Address [facility] Co de Phone Number [facility] [place] [employer] [address] * Magnesium (07/29/2024 12:31 AM CDT) Pathologist [facility] Magnesium 1.9 1.4 - 2.5 mg/dL Blood 07/29/2024 12:3 1 AM CDT 07/29/2024 12:52 AM CDT Leonor Quan MD LAB BLOOD ORDERABLES Fi nal Result Performing Organization Address City/[facility] Co de Phone Number [facility] [place] [employer] [address] * (ABNORMAL) Basic metabolic panel (07/29/2024 12:31 AM CDT) Pathologist [facility] Sodium 147(H) 135 - 145 mmol/L Potassium, pl 3.8 3.3 - 4.9 mmol/L [facility] Chloride 105 97 - 110 mmol/L [facility] CO2 31 22 - 32 mmol/L [facility] Anion gap 11 2 - 15 mmol/L [facility] BUN 55(H) 6 - 25 mg/dL [facility] Creatinine 1.23 0.80 - 1.30 mg/dL [facility] Glucose 147 70 - 199 mg/dL [facility] Comment: Interpretive Data Fasting glucose >/= [...] interpretive data was last revised 2022. Calcium 8.9 8.5 - 10.3 mg/dL [facility] Blood 07/29/2024 12:3 1 AM CDT 07/29/2024 12:52 AM CDT us Leonor Quan MD LAB BLOOD ORDERABLES Fi nal Result [facility] Department [place] [address] * (ABNORMAL) CBC without differential (07/29/2024 12:31 AM CDT) Pathologist [facility] WBC 4.2 3.8 - 9.9 K/cumm Hgb 7.7(L) 13.0 - 17.5 g/dL [facility] Hct 24.0(L) 38.9 - 50.3 % [facility] Plt 67(L) 150 - 400 K/cumm [facility] MPV 10.3 9.1 - 12.3 fL [facility] RBC 2.89(L) 4.30 - 5.80 M/cumm [facility] MCV 83.0 81.3 - 96.4 fL [facility] MCH 26.6(L) 27.1 - 33.3 pg [facility] MCHC 32.1(L) 32.3 - 35.7 g/dL [facility] RDW CV 17.1(H) 11.1 - 14.9 % [facility] RDW SD 50.2(H) 35.7 - 48.1 fL [facility] NRBC abs 0.07(H) 0.00 - 0.01 K/cumm [facility] Blood 07/29/2024 12:3 1 AM CDT 07/29/2024 12:53 AM CDT Leonor Quan MD LAB BLOOD ORDERABLES Fi nal Result Performing Organization Address City/[facility]/ZIP Co de Phone Number [facility] [place] [address] * POCT glucose (07/29/2024 12:30 AM CDT) [facility] Signature Glucose, POC 147 70 - 199 mg/dL Blood 07/29/2024 12:3 0 AM CDT 07/29/2024 12:30 AM CDT Leonor Quan MD LAB POCT ORDERABLES - D EVICE Final Result Performing Organization Address [facility] Co de Phone Number [facility] [place] [address] * XR Chest 1 View (07/28/2024 8:12 PM CDT) Anatomical Region Laterality Modality Body, Chest N/A Computed Radiogr aphy 07/29/2024 6:20 AM CDT Impressions 07/29/2024 6:20 AM CDT Median sternotomy plates are again seen. ??The right internal jugular [place] catheter tip is over the right ventricular outflow tract or main pulmonary artery. ??Persistence of apparent tight loop of the distal catheter proximal to the tip has persisted on multiple examinations since 07/24/2024 concerning for the possibility of a fixed nodule in the catheter. ??Right internal jugular central venous catheter tip at superior cavoatrial junction. ??Mediastinal drain, pericardial drain, bilateral chest tubes, and epicardial pacing wires again seen. Stable cardiomediastinal silhouette. ??Mild bibasilar atelectasis is similar to the prior study. ??Left lateral basilar haziness may be due to the atelectasis or small pleural effusion. ??No pulmonary edema, consolidation, or pneumothorax. The Critical results were discussed with JUSTYN Marin by Dr. Slade on 07/29/2024 at 0619. Electronically signed by: Preston Slade M.D. Narrative 07/29/2024 6:20 AM CDT EXAMINATION: 1 view chest radiograph COMPARISON: 07/27/2024 Procedure Note Preston Slade MD - 07/29/2024 EXAMINATION: 1 view chest radiograph COMPARISON: 07/27/2024 IMPRESSION: Median sternotomy plates are again seen. The right internal jugular [place] catheter tip is over the right ventricular outflow tract or main pulmonary artery. Persistence of apparent tight loop of the distal catheter proximal to the tip has persisted on multiple examinations since 07/24/2024 concerning for the possibility of a fixed nodule in the catheter. Right internal jugular central venous catheter tip at superior cavoatrial junction. Mediastinal drain, pericardial drain, bilateral chest tubes, and epicardial pacing wires again seen. Stable cardiomediastinal silhouette. Mild bibasilar atelectasis is similar to the prior study. Left lateral basilar haziness may be due to the atelectasis or small pleural effusion. No pulmonary edema, consolidation, or pneumothorax. The Critical results were discussed with JUSTYN Marin by Dr. Slade on 07/29/2024 at 0619. Electronically signed by: Preston Slade M.D. us Mala Pineda [employer] IMG XR PROCEDURES Final Resu lt * (ABNORMAL) Blood gas, arterial (07/28/2024 7:45 PM CDT) pH, Art 7.47(H) 7.35 - 7.45 PCO2, Arterial 40 35 - 45 mmHg [facility] PO2, Arterial 123(H) 83 - 108 mmHg [facility] HCO3 Art (Calculated) 30 20 - 30 mmol/L [facility] BE, art 5 mmol/L [facility] Comment: Interpretive Data No Reference Range Established Current Interpretive Data was last revised on 2017 O2 Sat Art (Measured) 99(H) 90 - 95 % [facility] Blood 07/28/2024 7:45 PM CDT 07/28/2024 7:51 PM CDT Leonor Quan MD LAB BLOOD ORDERABLES Fi nal Result Performing Organization Address City/[facility] Co de Phone Number [facility] [place] [employer] [address] * Oxyhemoglobin, pulmonary artery (07/28/2024 7:45 PM CDT) Oxyhemoglobin, PA 54.2 % Comment: Interpretive Data No reference range established. Current interpretive data was last revised 2020. Blood 07/28/2024 7:45 PM CDT 07/28/2024 7:52 PM CDT Amber KUHN LAB BLOOD ORDERABLES Fi nal Result Performing Organization Address [facility] Co de Phone Number [facility] [place] [address] * (ABNORMAL) Hemoglobin total, pulmonary artery (07/28/2024 7:45 PM CDT) Hemoglobin total, PA 9.7(L) 13.0 - 17.5 g/dL Blood 07/28/2024 7:45 PM CDT 07/28/2024 7:52 PM CDT Amber KUHN LAB BLOOD ORDERABLES Fi nal Result Performing Organization Address City/[facility] Co de Phone Number [facility] [place] [address] * Potassium, whole blood (07/28/2024 7:45 PM CDT) Potassium, bld 3.6 3.3 - 4.9 mmol/L Blood 07/28/2024 7:45 PM CDT 07/28/2024 7:51 PM CDT Leonor Quan MD LAB BLOOD ORDERABLES Fi nal Result Performing Organization Address [facility] Co de Phone Number [facility] [place] [address] * POCT glucose (07/28/2024 7:42 PM CDT) Glucose, POC 173 70 - 199 mg/dL Blood 07/28/2024 7:42 PM CDT 07/28/2024 7:42 PM CDT Leonor Quan MD LAB POCT ORDERABLES - D EVICE Final Result Performing Organization Address [facility] de Phone Number [facility] [place] [address] * Critical Care (07/28/2024 7:27 PM CDT) Narrative Feng Sinclair MD - 07/28/2024 7:27 PM CDT Peggy Gallardo PA ? 07/29/2024 ??5:03 AM Critical Care Performed by: Peggy Gallardo PA Authorized by: Peggy Gallardo PA ?? CRITICAL CARE: ??Team: ??83 CTICU ??Shift: ??PM ??Level of Billing: ??Critical Care ??My time spent with this patient was 75 minutes: Critical Provider Statement: I have seen and examined the patient on this day of service. I have reviewed and confirmed the history, physical exam, laboratory and radiologic data as documented in the signed ICU note. I have reviewed and discussed my treatment plan with the ICU team and other medical/systems consultant staff, making frequent assessments and decisions regarding this patient's complex medical care. Critical Care time was exclusive of time spent performing separately billed procedures, treating other patients, and teaching. This time was in addition to and separate from critical care provided by other practitioners in my group on this day of service. Critical Care was necessary to treat or prevent imminent or life-threatening deterioration of the following conditions: ? I spent time reviewing and interpreting data from bedside monitors, laboratory results, and imaging, I spent time discussing the management of this critically ill patient with consultants and the medical staff and I spent time documenting in the medical record us Peggy KUHN IN CLINIC/BEDSIDE ORDERA BLES Final Result * POCT glucose (07/28/2024 5:57 PM CDT) Glucose, POC 188 70 - 199 mg/dL Blood 07/28/2024 5:57 PM CDT 07/28/2024 5:57 PM CDT Result [facility] Leonor Quan MD LAB POCT ORDERABLES - D EVICE Final Result Performing Organization Address City/[facility]/ZIP Co de Phone Number [facility] Department [place] [address] * POCT glucose (07/28/2024 4:09 PM CDT) Glucose, POC 187 70 - 199 mg/dL Blood 07/28/2024 4:09 PM CDT 07/28/2024 4:09 PM CDT Result [facility] Leonor Quan MD LAB POCT ORDERABLES - D EVICE Final Result Performing Organization Address City/[facility]/ZIP Co de Phone Number [facility] Department [place] [address] * (ABNORMAL) Hemoglobin total, central venous (07/28/2024 4:06 PM CDT) Hemoglobin total, CV 10.1(L) 13.0 - 17.5 g/dL Blood 07/28/2024 4:06 PM CDT 07/28/2024 4:29 PM CDT Amber KUHN LAB BLOOD ORDERABLES Fi nal Result Performing Organization Address [facility] Co de Phone Number [facility] [place] [address] * Oxyhemoglobin, central venous (07/28/2024 4:06 PM CDT) Oxyhemoglobin, CV 66.8 % Comment: Interpretive Data No reference range established. Current interpretive data was last revised 2020. Blood 07/28/2024 4:06 PM CDT 07/28/2024 4:29 PM CDT Result [facility] Leonor Quan MD LAB BLOOD ORDERABLES Fi nal Result Performing Organization Address [facility] de Phone Number [facility] [place] [address] * (ABNORMAL) Blood gas, arterial (07/28/2024 4:06 PM CDT) pH, Art 7.47(H) 7.35 - 7.45 PCO2, Arterial 39 35 - 45 mmHg [facility] PO2, Arterial 132(H) 83 - 108 mmHg [facility] HCO3 Art (Calculated) 29 20 - 30 mmol/L [facility] BE, art 4 mmol/L [facility] Comment: Interpretive Data No Reference Range Established Current Interpretive Data was last revised on 2017 O2 Sat Art (Measured) 100(H) 90 - 95 % [facility] Blood 07/28/2024 4:06 PM CDT 07/28/2024 4:29 PM CDT Result [facility] Leonor Quan MD LAB BLOOD ORDERABLES Fi nal Result Performing Organization Address [facility] de Phone Number [facility] [place] [address] * Potassium, whole blood (07/28/2024 4:06 PM CDT) Potassium, bld 3.5 3.3 - 4.9 mmol/L Blood 07/28/2024 4:06 PM CDT 07/28/2024 4:29 PM CDT Leonor Quan MD LAB BLOOD ORDERABLES [place] [address] * POCT glucose (07/28/2024 12:08 PM CDT) Glucose, POC 182 70 - 199 mg/dL Blood 07/28/2024 12:0 8 PM CDT 07/28/2024 12:08 PM CDT Leonor Quan MD LAB POCT ORDERABLES - D EVICE Final Result Performing Organization Address City/[facility] Co de Phone Number [facility] [place] [address] * Potassium, whole blood (07/28/2024 12:08 PM CDT) Potassium, bld 3.8 3.3 - 4.9 mmol/L Blood 07/28/2024 12:0 8 PM CDT 07/28/2024 12:17 PM CDT Narrative [facility] - 07/28/2024 12:22 PM CDT While on Bumex infusion Mala Pineda NP LAB BLOOD ORDERABLES Final R esult Performing Organization Address City/[facility]/ZIP Co de Phone Number [facility] [place] [address] * POCT glucose (07/28/2024 7:43 AM CDT) Glucose, POC 154 70 - 199 mg/dL Blood 07/28/2024 7:43 AM CDT 07/28/2024 7:43 AM CDT Leonor Quan MD LAB POCT ORDERABLES - D EVICE Final Result Performing Organization Address [facility] de Phone Number [facility] [place] [address] * Potassium, whole blood (07/28/2024 7:37 AM CDT) Pathologist [facility] Potassium, bld 3.9 3.3 - 4.9 mmol/L Blood 07/28/2024 7:37 AM CDT 07/28/2024 7:49 AM CDT [facility] - 07/28/2024 7:56 AM CDT While on Bumex infusion Mala Pineda NP LAB BLOOD ORDERABLES Final R esult Performing Organization Address [facility] de Phone Number [facility] [place] [address] * Critical Care (07/28/2024 7:32 AM CDT) Narrative Feng Sinclair MD - 07/28/2024 7:32 AM CDT Shantal Elizabeth NP ? 07/28/2024 ??5:22 PM Critical Care Performed by: Shantal Elizabeth NP Authorized by: Shantal Elizabeth NP ?? CRITICAL CARE: ??Team: ??83 CTICU ??Shift: ??AM ??Level of Billing: ??Critical Care ??My time spent with this patient was 110 minutes: Critical Provider Statement: I have seen and examined the patient on this day of service. I have reviewed and confirmed the history, physical exam, laboratory and radiologic data as documented in the signed ICU note. I have reviewed and discussed my treatment plan with the ICU team and other medical/systems consultant staff, making frequent assessments and decisions regarding this patient's complex medical care. Critical Care time was exclusive of time spent performing separately billed procedures, treating other patients, and teaching. This time was in addition to and separate from critical care provided by other practitioners in my group on this day of service. Critical Care was necessary to treat or prevent imminent or life-threatening deterioration of the following conditions: ? I spent time reviewing and interpreting data from bedside monitors, laboratory results, and imaging, I spent time discussing the management of this critically ill patient with consultants and the medical staff and I spent time documenting in the medical record us Shantal Elizabeth NP IN CLINIC/BEDSIDE ORDERABLES Final Result * POCT glucose (07/28/2024 4:10 AM CDT) Glucose, POC 180 70 - 199 mg/dL Blood 07/28/2024 4:10 AM CDT 07/28/2024 4:10 AM CDT us Leonor Quan MD LAB POCT ORDERABLES - D EVICE Final Result Performing Organization Address City/[facility]/ZIP Co de Phone Number [facility] [place] [address] * Potassium, whole blood (07/28/2024 4:10 AM CDT) Potassium, bld 3.8 3.3 - 4.9 mmol/L Blood 07/28/2024 4:10 AM CDT 07/28/2024 4:21 AM CDT Narrative [facility] - 07/28/2024 4:26 AM CDT While on Bumex infusion us Mala Pineda NP LAB BLOOD ORDERABLES Final R esult [facility] [place] [address] * eGFR (07/28/2024 12:03 AM CDT) eGFR 70 >=60 mL/min/1. 73 m2 Comment: Interpretive Data [...] interpretive data was last reviewed 2021. Blood 07/28/2024 12:0 3 AM CDT 07/28/2024 12:19 AM CDT us Amber KUHN LAB BLOOD ORDERABLES Fi nal Result [facility] [place] [address] * Lactate (07/28/2024 12:03 AM CDT) Lactate 1.4 0.7 - 2.0 mmol/L Blood 07/28/2024 12:0 3 AM CDT 07/28/2024 12:18 AM CDT Leonor Quan MD LAB BLOOD ORDERABLES Fi nal Result Performing Organization Address City/[facility]/ZIP Co de Phone Number [facility] [place] [address] * (ABNORMAL) Blood gas, arterial (07/28/2024 12:03 AM CDT) pH, Art 7.42 7.35 - 7.45 PCO2, Arterial 42 35 - 45 mmHg [facility] PO2, Arterial 83 83 - 108 mmHg [facility] HCO3 Art (Calculated) 28 20 - 30 mmol/L [facility] BE, art 3 mmol/L [facility] Comment: Interpretive Data No Reference Range Established Current Interpretive Data was last revised on 2017 O2 Sat Art (Measured) 97(H) 90 - 95 % [facility] Blood 07/28/2024 12:0 3 AM CDT 07/28/2024 12:09 AM CDT Leonor Quan MD LAB BLOOD ORDERABLES Fi nal Result Performing Organization Address [facility] Co de Phone Number [facility] [place] [address] * (ABNORMAL) Hemoglobin total, pulmonary artery (07/28/2024 12:03 AM CDT) Pathologist [facility] Hemoglobin total, PA 8.4(L) 13.0 - 17.5 g/dL Blood 07/28/2024 12:0 3 AM CDT 07/28/2024 12:09 AM CDT us Amber KUHN LAB BLOOD ORDERABLES Fi nal Result Performing Organization Address City/[facility] Co de Phone Number [facility] [place] [address] * Oxyhemoglobin, pulmonary artery (07/28/2024 12:03 AM CDT) Pathologist [facility] Oxyhemoglobin, PA 74.3 % Comment: Interpretive Data No reference range established. Current interpretive data was last revised 2020. Blood 07/28/2024 12:0 3 AM CDT 07/28/2024 12:09 AM CDT Amber KUHN LAB BLOOD ORDERABLES Fi nal Result [facility] [place] [address] * Phosphorus (07/28/2024 12:03 AM CDT) [facility] Phosphorus, pl 3.4 2.3 - 4.5 mg/dL Blood 07/28/2024 12:0 3 AM CDT 07/28/2024 12:19 AM CDT Leonor Quan MD LAB BLOOD ORDERABLES Fi nal Result Performing Organization Address City/[facility]/ZIP Co de Phone Number [facility] [place] [address] * Magnesium (07/28/2024 12:03 AM CDT) [facility] Magnesium 1.8 1.4 - 2.5 mg/dL Blood 07/28/2024 12:0 3 AM CDT 07/28/2024 12:19 AM CDT Leonor Quan MD LAB BLOOD ORDERABLES Fi nal Result Performing Organization Address City/[facility]/ZIP Co de Phone Number [facility] [place] [address] * (ABNORMAL) Basic metabolic panel (07/28/2024 12:03 AM CDT) [facility] Sodium 145 135 - 145 mmol/L Potassium, pl 3.9 3.3 - 4.9 mmol/L [facility] Chloride 105 97 - 110 mmol/L [facility] CO2 30 22 - 32 mmol/L [facility] Anion gap 10 2 - 15 mmol/L [facility] BUN 47(H) 6 - 25 mg/dL [facility] Creatinine 1.12 0.80 - 1.30 mg/dL [facility] Glucose 187 70 - 199 mg/dL [facility] Comment: Interpretive Data Fasting glucose >/= [...] interpretive data was last revised 2022. Calcium 8.8 8.5 - 10.3 mg/dL [facility] Blood 07/28/2024 12:0 3 AM CDT 07/28/2024 12:19 AM CDT Leonor Quan MD LAB BLOOD ORDERABLES Fi nal Result [facility] [place] [address] * (ABNORMAL) CBC without differential (07/28/2024 12:03 AM CDT) [facility] WBC 8.6 3.8 - 9.9 K/cumm Hgb 8.1(L) 13.0 - 17.5 g/dL [facility] Hct 25.5(L) 38.9 - 50.3 % [facility] Plt 75(L) 150 - 400 K/cumm [facility] MPV 10.3 9.1 - 12.3 fL [facility] RBC 3.05(L) 4.30 - 5.80 M/cumm [facility] MCV 83.6 81.3 - 96.4 fL [facility] MCH 26.6(L) 27.1 - 33.3 pg [facility] MCHC 31.8(L) 32.3 - 35.7 g/dL [facility] RDW CV 17.1(H) 11.1 - 14.9 % [facility] RDW SD 50.9(H) 35.7 - 48.1 fL [facility] NRBC abs 0.02(H) 0.00 - 0.01 K/cumm [facility] Blood 07/28/2024 12:0 3 AM CDT 07/28/2024 12:19 AM CDT Leonor Quan MD LAB BLOOD ORDERABLES Fi nal Result Performing Organization Address City/[facility] Co de Phone Number [facility] [place] [address] * Potassium, whole blood (07/28/2024 12:03 AM CDT) Potassium, bld 3.8 3.3 - 4.9 mmol/L Blood 07/28/2024 12:0 3 AM CDT 07/28/2024 12:09 AM CDT Narrative [facility] - 07/28/2024 12:20 AM CDT While on Bumex infusion Mala Pineda NP LAB BLOOD ORDERABLES Final R esult [facility] [place] [address] * POCT glucose (07/27/2024 11:50 PM CDT) Glucose, POC 186 70 - 199 mg/dL Blood 07/27/2024 11:5 0 PM CDT 07/27/2024 11:50 PM CDT Leonor Quan MD LAB POCT ORDERABLES - D EVICE Final Result [facility] [place] [address] * POCT glucose (07/27/2024 8:47 PM CDT) Glucose, POC 193 70 - 199 mg/dL Blood 07/27/2024 8:47 PM CDT 07/27/2024 8:47 PM CDT Leonor Quan MD LAB POCT ORDERABLES - D EVICE Final Result Performing Organization Address [facility] Co de Phone Number GILLIAN [facility] [place] [address] * (ABNORMAL) Blood gas, arterial (07/27/2024 8:47 PM CDT) pH, Art 7.46(H) 7.35 - 7.45 PCO2, Arterial 38 35 - 45 mmHg [facility] PO2, Arterial 137(H) 83 - 108 mmHg [facility] HCO3 Art (Calculated) 28 20 - 30 mmol/L [facility] BE, art 3 mmol/L [facility] Comment: Interpretive Data No Reference Range Established Current Interpretive Data was last revised on 2017 O2 Sat Art (Measured) 100(H) 90 - 95 % [facility] Blood 07/27/2024 8:47 PM CDT 07/27/2024 9:03 PM CDT Leonor Quan MD LAB BLOOD ORDERABLES Fi nal Result Performing Organization Address City/[facility]/ZIP Co de Phone Number [facility] [place] [address] * Potassium, whole blood (07/27/2024 8:47 PM CDT) Potassium, bld 3.7 3.3 - 4.9 mmol/L Blood 07/27/2024 8:47 PM CDT 07/27/2024 9:03 PM CDT Narrative GILLIAN [facility] - 07/27/2024 9:06 PM CDT While on Bumex infusion Mala Krauseor [employer] LAB BLOOD ORDERABLES Final R esult [facility] [place] [address] * XR Chest 1 View (07/27/2024 8:44 PM CDT) Anatomical Region Laterality Modality Body, Chest N/A Digital Radiogra phy 07/28/2024 9:15 AM CDT Impressions 07/28/2024 9:22 AM CDT The current study is compared with the prior radiograph dated ??07/26/2024 at 8:27 PM. Sternal fixation plates are aligned and intact. ??Pulmonary artery catheter projects over the right pulmonary artery. ??Pericardial, mediastinal, and bilateral thoracostomy drains are seen. ??A right internal jugular approach central venous catheter terminates at the superior vena cava. There is mildly increased left greater than right bibasilar atelectasis. ??There is trace pulmonary edema. ??There are no definite pleural effusions. ??There is no pneumothorax or pneumonia. ??The cardiac mediastinal silhouette is unchanged. Dictated by: Tone Olson M.D. The radiology attending physician has personally reviewed this study, and had reviewed and/or edited this written report and agrees with it. Electronically signed by: Serafin Terrell M.D. Narrative 07/28/2024 9:22 AM CDT EXAMINATION: 1 view chest radiograph Procedure Note Serafin Terrell MD - 07/28/2024 EXAMINATION: 1 view chest radiograph IMPRESSION: The current study is compared with the prior radiograph dated 07/26/2024 at 8:27 PM. Sternal fixation plates are aligned and intact. Pulmonary artery catheter projects over the right pulmonary artery. Pericardial, mediastinal, and bilateral thoracostomy drains are seen. A right internal jugular approach central venous catheter terminates at the superior vena cava. There is mildly increased left greater than right bibasilar atelectasis. There is trace pulmonary edema. There are no definite pleural effusions. There is no pneumothorax or pneumonia. The cardiac mediastinal silhouette is unchanged. Dictated by: Tone Olson M.D. The radiology attending physician has personally reviewed this study, and had reviewed and/or edited this written report and agrees with it. Electronically signed by: Serafin Terrell M.D. us Mala Pineda [employer] IMG XR PROCEDURES Final Resu lt * Critical Care (07/27/2024 7:27 PM CDT) Narrative Feng Sinclair MD - 07/27/2024 7:27 PM CDT Peggy Gallardo PA ? 07/28/2024 ??5:40 AM Critical Care Performed by: Peggy Gallardo PA Authorized by: Peggy Gallardo PA ?? CRITICAL CARE: ??Team: ??83 CTICU ??Shift: ??PM ??Level of Billing: ??Critical Care ??My time spent with this patient was 60 minutes: Critical Provider Statement: I have seen and examined the patient on this day of service. I have reviewed and confirmed the history, physical exam, laboratory and radiologic data as documented in the signed ICU note. I have reviewed and discussed my treatment plan with the ICU team and other medical/systems consultant staff, making frequent assessments and decisions regarding this patient's complex medical care. Critical Care time was exclusive of time spent performing separately billed procedures, treating other patients, and teaching. This time was in addition to and separate from critical care provided by other practitioners in my group on this day of service. Critical Care was necessary to treat or prevent imminent or life-threatening deterioration of the following conditions: ? I spent time reviewing and interpreting data from bedside monitors, laboratory results, and imaging, I spent time discussing the management of this critically ill patient with consultants and the medical staff and I spent time documenting in the medical record us Peggy KUHN IN CLINIC/BEDSIDE ORDERA BLES Final Result * POCT glucose (07/27/2024 5:53 PM CDT) Glucose, POC 197 70 - 199 mg/dL Blood 07/27/2024 5:53 PM CDT 07/27/2024 5:53 PM CDT Leonor Quan MD LAB POCT ORDERABLES - D EVICE Final Result Performing Organization Address City/[facility]/ZIP Co de Phone Number [facility] [place] [address] * (ABNORMAL) POCT glucose (07/27/2024 4:38 PM CDT) Glucose, POC 217(H) 70 - 199 mg/dL Blood 07/27/2024 4:3 8 PM CDT 07/27/2024 4:38 PM CDT Leonor Quan MD LAB POCT ORDERABLES - D EVICE Final Result Performing Organization Address [facility] Co de Phone Number [facility] [place] [employer] [place] [address] * Type and screen (07/27/2024 4:30 PM CDT) Pathologist [facility] Janell, indirect Negative ABO Rh O Positive [facility] Blood 07/27/2024 4:30 PM CDT 07/27/2024 5:42 PM CDT Narrative [facility] - 07/27/2024 6:40 PM CDT Has the patient had Daratumumab or Isatuximab in the past 6 months?->Unknown Leonor Quan MD LAB BLOOD BANK TEST ORD ERABLES Final Result Performing Organization Address [facility] Co de Phone Number [facility] [place] [address] * Potassium, whole blood (07/27/2024 4:30 PM CDT) Potassium, bld 3.8 3.3 - 4.9 mmol/L Blood 07/27/2024 4:30 PM CDT 07/27/2024 5:12 PM CDT Narrative [facility] - 07/27/2024 5:18 PM CDT While on Bumex infusion Mala Pineda [employer] LAB BLOOD ORDERABLES Final R esult [facility] [place] [address] * POCT glucose (07/27/2024 12:02 PM CDT) [facility] Glucose, POC 187 70 - 199 mg/dL Blood 07/27/2024 12:0 2 PM CDT 07/27/2024 12:02 PM CDT Leonor Quan MD LAB POCT ORDERABLES - D EVICE Final Result Performing Organization Address [facility] Co de Phone Number [facility] [place] [address] * Potassium, whole blood (07/27/2024 12:00 PM CDT) Pathologist [facility] Potassium, bld 4.2 3.3 - 4.9 mmol/L Blood 07/27/2024 12:0 0 PM CDT 07/27/2024 12:11 PM CDT Leonor Quan MD LAB BLOOD ORDERABLES Fi nal Result Performing Organization Address City/[facility] Co de Phone Number [facility] [place] [address] * (ABNORMAL) Blood gas, arterial (07/27/2024 12:00 PM CDT) pH, Art 7.46(H) 7.35 - 7.45 PCO2, Arterial 35 35 - 45 mmHg [facility] PO2, Arterial 146(H) 83 - 108 mmHg [facility] HCO3 Art (Calculated) 26 20 - 30 mmol/L [facility] BE, art 1 mmol/L [facility] Comment: Interpretive Data No Reference Range Established Current Interpretive Data was last revised on 2017 O2 Sat Art (Measured) 100(H) 90 - 95 % [facility] Blood 07/27/2024 12:0 0 PM CDT 07/27/2024 12:11 PM CDT Leonor Quan MD LAB BLOOD ORDERABLES Fi nal Result Performing Organization Address [facility] de Phone Number [facility] [place] [address] * Lactate (07/27/2024 9:28 AM CDT) Lactate 1.7 0.7 - 2.0 mmol/L Blood 07/27/2024 9:28 AM CDT 07/27/2024 9:51 AM CDT Result [facility] Leonor Quan MD LAB BLOOD ORDERABLES Fi nal Result Performing Organization Address [facility] de Phone Number [facility] [place] [address] * Oxyhemoglobin, central venous (07/27/2024 9:28 AM CDT) Oxyhemoglobin, CV 63.4 % Comment: Interpretive Data No reference range established. Current interpretive data was last revised 2020. Blood 07/27/2024 9:28 AM CDT 07/27/2024 9:43 AM CDT Leonor Quan MD LAB BLOOD ORDERABLES Fi nal Result Performing Organization Address City/[facility] Co de Phone Number [facility] [place] [address] * (ABNORMAL) Blood gas, arterial (07/27/2024 9:28 AM CDT) pH, Art 7.41 7.35 - 7.45 PCO2, Arterial 40 35 - 45 mmHg [facility] PO2, Arterial 143(H) 83 - 108 mmHg [facility] HCO3 Art (Calculated) 26 20 - 30 mmol/L [facility] BE, art 1 mmol/L [facility] Comment: Interpretive Data No Reference Range Established Current Interpretive Data was last revised on 2017 O2 Sat Art (Measured) 100(H) 90 - 95 % [facility] Blood 07/27/2024 9:28 AM CDT 07/27/2024 9:43 AM CDT Leonor Quan MD LAB BLOOD ORDERABLES Fi nal Result Performing Organization Address [facility] Co de Phone Number [facility] [place] [address] * (ABNORMAL) Hemoglobin total, central venous (07/27/2024 9:28 AM CDT) [facility] Hemoglobin total, CV 8.9(L) 13.0 - 17.5 g/dL Blood 07/27/2024 9:28 AM CDT 07/27/2024 9:43 AM CDT Amber KUHN LAB BLOOD ORDERABLES Fi nal Result Performing Organization Address [facility] Co de Phone Number [facility] [place] [address] * POCT glucose (07/27/2024 9:18 AM CDT) Glucose, POC 155 70 - 199 mg/dL Blood 07/27/2024 9:18 AM CDT 07/27/2024 9:18 AM CDT Leonor Quan MD LAB POCT ORDERABLES - D EVICE Final Result Performing Organization Address [facility] de Phone Number [facility] [place] [address] * POCT glucose (07/27/2024 7:41 AM CDT) Glucose, POC 157 70 - 199 mg/dL Blood 07/27/2024 7:41 AM CDT 07/27/2024 7:41 AM CDT Leonor Quan MD LAB POCT ORDERABLES - D EVICE Final Result Performing Organization Address [facility] de Phone Number [facility] [place] [address] * Potassium, whole blood (07/27/2024 7:41 AM CDT) Potassium, bld 4.2 3.3 - 4.9 mmol/L Blood 07/27/2024 7:41 AM CDT 07/27/2024 7:46 AM CDT [facility]ative [facility] - 07/27/2024 7:49 AM CDT While on Bumex infusion Mala Pineda NP LAB BLOOD ORDERABLES Final R esult Performing Organization Address [facility] Co de Phone Number [facility] [place] [address] * Critical Care (07/27/2024 7:22 AM CDT) Narrative Feng Sinclair MD - 07/27/2024 7:22 AM CDT Shantal Elizabeth NP ? 07/27/2024 ??5:37 PM Critical Care Performed by: Shantal Elizabeth NP Authorized by: Shantal Elizabeth NP ?? CRITICAL CARE: ??Team: ??83 CTICU ??Shift: ??AM ??Level of Billing: ??Critical Care ??My time spent with this patient was 120 minutes: Critical Provider Statement: I have seen and examined the patient on this day of service. I have reviewed and confirmed the history, physical exam, laboratory and radiologic data as documented in the signed ICU note. I have reviewed and discussed my treatment plan with the ICU team and other medical/systems consultant staff, making frequent assessments and decisions regarding this patient's complex medical care. Critical Care time was exclusive of time spent performing separately billed procedures, treating other patients, and teaching. This time was in addition to and separate from critical care provided by other practitioners in my group on this day of service. Critical Care was necessary to treat or prevent imminent or life-threatening deterioration of the following conditions: ? I spent time reviewing and interpreting data from bedside monitors, laboratory results, and imaging, I spent time discussing the management of this critically ill patient with consultants and the medical staff and I spent time documenting in the medical record us Shantal Elizabeth NP IN CLINIC/BEDSIDE ORDERABLES Final Result * POCT glucose (07/27/2024 6:57 AM CDT) Glucose, POC 101 70 - 199 mg/dL Blood 07/27/2024 6:57 AM CDT 07/27/2024 6:57 AM CDT us Leonor Quan MD LAB POCT ORDERABLES - D EVICE Final Result [facility] [place] [address] * POCT glucose (07/27/2024 6:13 AM CDT) Glucose, POC 93 70 - 199 mg/dL Blood 07/27/2024 6:13 AM CDT 07/27/2024 6:13 AM CDT Leonor Quan MD LAB POCT ORDERABLES - D EVICE Final Result Performing Organization Address City/[facility] Co de Phone Number [facility] [place] [address] * (ABNORMAL) Hemoglobin total, central venous (07/27/2024 3:58 AM CDT) Hemoglobin total, CV 8.7(L) 13.0 - 17.5 g/dL Blood 07/27/2024 3:58 AM CDT 07/27/2024 4:06 AM CDT Amber KUHN LAB BLOOD ORDERABLES Fi nal Result Performing Organization Address [facility] de Phone Number [facility] [place] [address] * (ABNORMAL) Blood gas, arterial (07/27/2024 3:58 AM CDT) pH, Art 7.40 7.35 - 7.45 PCO2, Arterial 39 35 - 45 mmHg [facility] PO2, Arterial 103 83 - 108 mmHg [facility] HCO3 Art (Calculated) 25 20 - 30 mmol/L [facility] BE, art 0 mmol/L [facility] Comment: Interpretive Data No Reference Range Established Current Interpretive Data was last revised on 2017 O2 Sat Art (Measured) 99(H) 90 - 95 % [facility] Blood 07/27/2024 3:58 AM CDT 07/27/2024 4:06 AM CDT Leonor Quan MD LAB BLOOD ORDERABLES Fi nal Result Performing Organization Address [facility] Co de Phone Number [facility] [place] [address] * Oxyhemoglobin, central venous (07/27/2024 3:58 AM CDT) Oxyhemoglobin, CV 60.5 % Comment: Interpretive Data No reference range established. Current interpretive data was last revised 2020. Blood 07/27/2024 3:58 AM CDT 07/27/2024 4:06 AM CDT Leonor Quan MD LAB BLOOD ORDERABLES Fi nal Result Performing Organization Address [facility] de Phone Number [facility] [place] [address] * Potassium, whole blood (07/27/2024 3:58 AM CDT) [facility] Potassium, bld 4.0 3.3 - 4.9 mmol/L Blood 07/27/2024 3:58 AM CDT 07/27/2024 4:06 AM CDT Narrative [facility] - 07/27/2024 4:14 AM CDT While on Bumex infusion Mala Pineda NP LAB BLOOD ORDERABLES Final R esult Performing Organization Address [facility] de Phone Number [facility] [place] [address] * POCT glucose (07/27/2024 3:55 AM CDT) Glucose, POC 115 70 - 199 mg/dL Blood 07/27/2024 3:55 AM CDT 07/27/2024 3:55 AM CDT Leonor Quan MD LAB POCT ORDERABLES - D EVICE Final Result Performing Organization Address [facility] de Phone Number [facility] [place] [address] * POCT glucose (07/27/2024 2:30 AM CDT) Glucose, POC 125 70 - 199 mg/dL Blood 07/27/2024 2:30 AM CDT 07/27/2024 2:30 AM CDT Leonor Quan MD LAB POCT ORDERABLES - D EVICE Final Result Performing Organization Address [facility] Co de Phone Number [facility] [place] [address] * POCT glucose (07/27/2024 12:09 AM CDT) Glucose, POC 123 70 - 199 mg/dL Blood 07/27/2024 12:0 9 AM CDT 07/27/2024 12:09 AM CDT Leonor Quan MD LAB POCT ORDERABLES - D EVICE Final Result Performing Organization Address [facility] de Phone Number [facility] Department [place] [address] * eGFR (07/27/2024 12:03 AM CDT) eGFR 73 >=60 mL/min/1. 73 m2 Comment: Interpretive Data [...] interpretive data was last reviewed 2021. Blood 07/27/2024 12:0 3 AM CDT 07/27/2024 12:27 AM CDT Amber KUHN LAB BLOOD ORDERABLES Fi nal Result Performing Organization Address City/[facility]/ZIP Co de Phone Number [facility] [place] [address] * (ABNORMAL) Hemoglobin total, central venous (07/27/2024 12:03 AM CDT) Hemoglobin total, CV 8.3(L) 13.0 - 17.5 g/dL Blood 07/27/2024 12:0 3 AM CDT 07/27/2024 12:20 AM CDT Amber KUHN LAB BLOOD ORDERABLES Fi nal Result Performing Organization Address City/[facility] Co de Phone Number [facility] [place] [address] * (ABNORMAL) Blood gas, arterial (07/27/2024 12:03 AM CDT) pH, Art 7.39 7.35 - 7.45 PCO2, Arterial 40 35 - 45 mmHg [facility] PO2, Arterial 161(H) 83 - 108 mmHg [facility] HCO3 Art (Calculated) 25 20 - 30 mmol/L [facility] BE, art -1 mmol/L [facility] Comment: Interpretive Data No Reference Range Established Current Interpretive Data was last revised on 2017 O2 Sat Art (Measured) 100(H) 90 - 95 % [facility] Blood 07/27/2024 12:0 3 AM CDT 07/27/2024 12:20 AM CDT Leonor Quan MD LAB BLOOD ORDERABLES Fi nal Result Performing Organization Address [facility] Co de Phone Number [facility] [place] [address] * Oxyhemoglobin, central venous (07/27/2024 12:03 AM CDT) Oxyhemoglobin, CV 66.5 % Comment: Interpretive Data No reference range established. Current interpretive data was last revised 2020. Blood 07/27/2024 12:0 3 AM CDT 07/27/2024 12:20 AM CDT Leonor Quan MD LAB BLOOD ORDERABLES Fi nal Result Performing Organization Address [facility] Co de Phone Number [facility] [place] [address] * Potassium, whole blood (07/27/2024 12:03 AM CDT) Potassium, bld 4.2 3.3 - 4.9 mmol/L Blood 07/27/2024 12:0 3 AM CDT 07/27/2024 12:20 AM CDT Narrative [facility] - 07/27/2024 12:34 AM CDT While on Bumex infusion Mala Pineda NP LAB BLOOD ORDERABLES Final R esult Performing Organization Address [facility] Co de Phone Number [facility] [place] [address] * Phosphorus (07/27/2024 12:03 AM CDT) Phosphorus, pl 3.0 2.3 - 4.5 mg/dL Blood 07/27/2024 12:0 3 AM CDT 07/27/2024 12:27 AM CDT Leonor Quan MD LAB BLOOD ORDERABLES Fi nal Result Performing Organization Address City/[facility] Co de Phone Number [facility] [place] [address] * Magnesium (07/27/2024 12:03 AM CDT) [facility] Magnesium 1.9 1.4 - 2.5 mg/dL Blood 07/27/2024 12:0 3 AM CDT 07/27/2024 12:27 AM CDT Leonor Quan MD LAB BLOOD ORDERABLES Fi nal Result Performing Organization Address [facility] de Phone Number [facility] [place] [address] * (ABNORMAL) Basic metabolic panel (07/27/2024 12:03 AM CDT) [facility] Sodium 138 135 - 145 mmol/L Potassium, pl 4.4 3.3 - 4.9 mmol/L [facility] Chloride 103 97 - 110 mmol/L [facility] CO2 26 22 - 32 mmol/L [facility] Anion gap 9 2 - 15 mmol/L [facility] BUN 38(H) 6 - 25 mg/dL [facility] Creatinine 1.08 0.80 - 1.30 mg/dL [facility] Glucose 153 70 - 199 mg/dL [facility] Comment: Interpretive Data Fasting glucose >/= [...] interpretive data was last revised 2022. Calcium 8.6 8.5 - 10.3 mg/dL [facility] Blood 07/27/2024 12:0 3 AM CDT 07/27/2024 12:27 AM CDT Leonor Quan MD LAB BLOOD ORDERABLES Fi nal Result Performing Organization Address City/[facility] Co de Phone Number [facility] [place] [address] * (ABNORMAL) CBC without differential (07/27/2024 12:03 AM CDT) WBC 11.2(H) 3.8 - 9.9 K/cumm Hgb 8.1(L) 13.0 - 17.5 g/dL [facility] Hct 25.5(L) 38.9 - 50.3 % [facility] Plt 62(L) 150 - 400 K/cumm [facility] MPV 10.0 9.1 - 12.3 fL [facility] RBC 3.04(L) 4.30 - 5.80 M/cumm [facility] MCV 83.9 81.3 - 96.4 fL [facility] MCH 26.6(L) 27.1 - 33.3 pg [facility] MCHC 31.8(L) 32.3 - 35.7 g/dL [facility] RDW CV 16.7(H) 11.1 - 14.9 % [facility] RDW SD 50.9(H) 35.7 - 48.1 fL [facility] NRBC abs 0.00 0.00 - 0.01 K/cumm [facility] Blood 07/27/2024 12:0 3 AM CDT 07/27/2024 12:27 AM CDT Leonor Quan MD LAB BLOOD ORDERABLES Fi nal Result Performing Organization Address City/[facility]/ZIP Co de Phone Number [facility] [place] [address] * POCT glucose (07/26/2024 11:09 PM CDT) Glucose, POC 114 70 - 199 mg/dL Blood 07/26/2024 11:0 9 PM CDT 07/26/2024 11:09 PM CDT Leonor Quan MD LAB POCT ORDERABLES - D EVICE Final Result Performing Organization Address City/[facility]/ZIP [place] [address] * POCT glucose (07/26/2024 10:09 PM CDT) Glucose, POC 142 70 - 199 mg/dL Blood 07/26/2024 10:0 9 PM CDT 07/26/2024 10:09 PM CDT Leonor Quan MD LAB POCT ORDERABLES - D EVICE Final Result Performing Organization Address City/[facility] [place] [address] * POCT glucose (07/26/2024 8:55 PM CDT) Glucose, POC 150 70 - 199 mg/dL Blood 07/26/2024 8:55 PM CDT 07/26/2024 8:55 PM CDT Leonor Quan MD LAB POCT ORDERABLES - D EVICE Final Result Performing Organization Address City/[facility] [place] [address] * XR Chest 1 View (07/26/2024 8:38 PM CDT) Anatomical Region Laterality Modality Body, Chest N/A Digital Radiogra phy 07/27/2024 10:1 0 AM CDT Impressions 07/27/2024 10:49 AM CDT The current study is compared with the prior radiograph dated 07/25/2024 8:50 PM. Sternal fixation plates are aligned and intact. ??Bilateral thoracostomy tubes are seen. ??A mediastinal sternal drain and pericardial drain are in place. ??A pulmonary catheter projects over the right pulmonary artery. ??A right internal jugular approach central venous catheter terminates over the superior vena cava. There is unchanged mild bibasilar atelectasis. ??There is no pneumothorax or pneumonia. ??The cardiomediastinal silhouette is unchanged. Dictated by: Tone Olson M.D. The radiology attending physician has personally reviewed this study, and had reviewed and/or edited this written report and agrees with it. Electronically signed by: Altagracia Stafford M.D. Narrative 07/27/2024 10:49 AM CDT EXAMINATION: 1 view chest radiograph Procedure Note Altagracia Stafford MD - 07/27/2024 EXAMINATION: 1 view chest radiograph IMPRESSION: The current study is compared with the prior radiograph dated 07/25/2024 8:50 PM. Sternal fixation plates are aligned and intact. Bilateral thoracostomy tubes are seen. A mediastinal sternal drain and pericardial drain are in place. A pulmonary catheter projects over the right pulmonary artery. A right internal jugular approach central venous catheter terminates over the superior vena cava. There is unchanged mild bibasilar atelectasis. There is no pneumothorax or pneumonia. The cardiomediastinal silhouette is unchanged. Dictated by: Tone Olson M.D. The radiology attending physician has personally reviewed this study, and had reviewed and/or edited this written report and agrees with it. Electronically signed by: Altagracia Stafford M.D. us Mala Pineda NP IMG XR PROCEDURES Final Resu lt * POCT glucose (07/26/2024 8:02 PM CDT) Glucose, POC 94 70 - 199 mg/dL Blood 07/26/2024 8:02 PM CDT 07/26/2024 8:02 PM CDT Leonor Quan MD LAB POCT ORDERABLES - D EVICE Final Result Performing Organization Address [facility] Co de Phone Number [facility] [place] [employer] [address] * (ABNORMAL) Hemoglobin total, central venous (07/26/2024 7:04 PM CDT) Hemoglobin total, CV 7.9(L) 13.0 - 17.5 g/dL Blood 07/26/2024 7:04 PM CDT 07/26/2024 7:11 PM CDT Amber KUHN LAB BLOOD ORDERABLES Fi nal Result Performing Organization Address [facility] de Phone Number [facility] [place] [employer] [address] * Oxyhemoglobin, central venous (07/26/2024 7:04 PM CDT) [facility] Oxyhemoglobin, CV 67.3 % Comment: Interpretive Data No reference range established. Current interpretive data was last revised 2020. Blood 07/26/2024 7:04 PM CDT 07/26/2024 7:11 PM CDT Leonor Quan MD LAB BLOOD ORDERABLES Fi nal Result Performing Organization Address [facility] Co de Phone Number [facility] [place] [employer] [address] * (ABNORMAL) Blood gas, arterial (07/26/2024 7:04 PM CDT) pH, Art 7.37 7.35 - 7.45 PCO2, Arterial 40 35 - 45 mmHg [facility] PO2, Arterial 94 83 - 108 mmHg [facility] HCO3 Art (Calculated) 24 20 - 30 mmol/L [facility] BE, art -2 mmol/L [facility] Comment: Interpretive Data No Reference Range Established Current Interpretive Data was last revised on 2017 O2 Sat Art (Measured) 98(H) 90 - 95 % [facility] Blood 07/26/2024 7:04 PM CDT 07/26/2024 7:11 PM CDT Leonor Quan MD LAB BLOOD ORDERABLES Fi nal Result Performing Organization Address [facility] Co de Phone Number [facility] [place] [employer] [address] * Potassium, whole blood (07/26/2024 7:04 PM CDT) Potassium, bld 4.1 3.3 - 4.9 mmol/L Blood 07/26/2024 7:04 PM CDT 07/26/2024 7:11 PM CDT Narrative [facility] - 07/26/2024 7:18 PM CDT While on Bumex infusion Mala Pineda NP LAB BLOOD ORDERABLES Final R esult Performing Organization Address City/[facility] Co de Phone Number [facility] [place] [address] * POCT glucose (07/26/2024 6:57 PM CDT) Glucose, POC 95 70 - 199 mg/dL Blood 07/26/2024 6:57 PM CDT 07/26/2024 6:57 PM CDT Leonor Quan MD LAB POCT ORDERABLES - D EVICE Final Result Performing Organization Address City/[facility]/ZIP Co de Phone Number [facility] [place] [address] * Critical Care (07/26/2024 6:53 PM CDT) Narrative Feng Sinclair MD - 07/26/2024 6:53 PM CDT Mala Pineda NP ? 07/27/2024 ??4:22 AM Critical Care Performed by: Mala Pineda NP Authorized by: Mala Pineda NP ?? CRITICAL CARE: ??Team: ??83 CTICU ??Shift: ??PM ??Level of Billing: ??Critical Care ??My time spent with this patient was 75 minutes: Critical Provider Statement: I have seen and examined the patient on this day of service. I have reviewed and confirmed the history, physical exam, laboratory and radiologic data as documented in the signed ICU note. I have reviewed and discussed my treatment plan with the ICU team and other medical/systems consultant staff, making frequent assessments and decisions regarding this patient's complex medical care. Critical Care time was exclusive of time spent performing separately billed procedures, treating other patients, and teaching. This time was in addition to and separate from critical care provided by other practitioners in my group on this day of service. Critical Care was necessary to treat or prevent imminent or life-threatening deterioration of the following conditions: ? I spent time reviewing and interpreting data from bedside monitors, laboratory results, and imaging, I spent time discussing the management of this critically ill patient with consultants and the medical staff and I spent time documenting in the medical record us Mala Pineda NP IN CLINIC/BEDSIDE ORDERABLES Final Result * POCT glucose (07/26/2024 6:04 PM CDT) Glucose, POC 109 70 - 199 mg/dL Blood 07/26/2024 6:04 PM CDT 07/26/2024 6:04 PM CDT us Leonor Quan MD LAB POCT ORDERABLES - D EVICE Final Result [facility] [place] [address] * POCT glucose (07/26/2024 4:57 PM CDT) Glucose, POC 117 70 - 199 mg/dL Blood 07/26/2024 4:57 PM CDT 07/26/2024 4:57 PM CDT Leonor Quan MD LAB POCT ORDERABLES - D EVICE Final Result Performing Organization Address City/[facility] Co de Phone Number [facility] [place] [address] * POCT glucose (07/26/2024 4:03 PM CDT) Glucose, POC 113 70 - 199 mg/dL Blood 07/26/2024 4:03 PM CDT 07/26/2024 4:03 PM CDT Leonor Quan MD LAB POCT ORDERABLES - D EVICE Final Result Performing Organization Address [facility] Co de Phone Number [facility] [place] [address] * Oxyhemoglobin, pulmonary artery (07/26/2024 3:19 PM CDT) Pathologist [facility] Oxyhemoglobin, PA 60.4 % Comment: Interpretive Data No reference range established. Current interpretive data was last revised 2020. Blood 07/26/2024 3:19 PM CDT 07/26/2024 3:26 PM CDT Amber KUHN LAB BLOOD ORDERABLES Fi nal Result Performing Organization Address [facility] Co de Phone Number [facility] [place] [employer] [address] * (ABNORMAL) Hemoglobin total, pulmonary artery (07/26/2024 3:19 PM CDT) Hemoglobin total, PA 8.3(L) 13.0 - 17.5 g/dL Blood 07/26/2024 3:19 PM CDT 07/26/2024 3:26 PM CDT Amber KUHN LAB BLOOD ORDERABLES Fi nal Result Performing Organization Address City/[facility]/ZIP Co de Phone Number [facility] [place] [address] * POCT glucose (07/26/2024 3:02 PM CDT) Glucose, POC 136 70 - 199 mg/dL Blood 07/26/2024 3:02 PM CDT 07/26/2024 3:02 PM CDT Leonor Quan MD LAB POCT ORDERABLES - D EVICE Final Result Performing Organization Address City/[facility] Co de Phone Number [facility] [place] [employer] [place] [address] * POCT glucose (07/26/2024 2:03 PM CDT) Glucose, POC 167 70 - 199 mg/dL Blood 07/26/2024 2:03 PM CDT 07/26/2024 2:03 PM CDT Leonor Quan MD LAB POCT ORDERABLES - D EVICE Final Result Performing Organization Address City/[facility] Co de Phone Number [facility] [place] [employer] [address] * (ABNORMAL) Hemoglobin total, central venous (07/26/2024 2:03 PM CDT) Hemoglobin total, CV 8.6(L) 13.0 - 17.5 g/dL Blood 07/26/2024 2:03 PM CDT 07/26/2024 7:11 PM CDT Amber KUHN LAB BLOOD ORDERABLES Fi nal Result Performing Organization Address [facility] [place] [address] * Oxyhemoglobin, central venous (07/26/2024 2:03 PM CDT) Oxyhemoglobin, CV 61.0 % Comment: Interpretive Data No reference range established. Current interpretive data was last revised 2020. Blood 07/26/2024 2:03 PM CDT 07/26/2024 7:11 PM CDT us Leonor Quan MD LAB BLOOD ORDERABLES Fi nal Result Performing Organization Address [facility] de Phone Number [facility] [place] [address] * POCT glucose (07/26/2024 12:56 PM CDT) Glucose, POC 155 70 - 199 mg/dL Blood 07/26/2024 12:5 6 PM CDT 07/26/2024 12:56 PM CDT us Leonor Quan MD LAB POCT ORDERABLES - D EVICE Final Result Performing Organization Address [facility] Co de Phone Number [facility] [place] [employer] [address] * POCT glucose (07/26/2024 12:03 PM CDT) Glucose, POC 154 70 - 199 mg/dL Blood 07/26/2024 12:0 3 PM CDT 07/26/2024 12:03 PM CDT Leonor Quan MD LAB POCT ORDERABLES - D EVICE Final Result Performing Organization Address City/[facility] Co de Phone Number [facility] [place] [address] * POCT glucose (07/26/2024 10:49 AM CDT) Glucose, POC 170 70 - 199 mg/dL Blood 07/26/2024 10:4 9 AM CDT 07/26/2024 10:49 AM CDT Leonor Quan MD LAB POCT ORDERABLES - D EVICE Final Result Performing Organization Address [facility] Co de Phone Number [facility] [place] [address] * POCT glucose (07/26/2024 10:01 AM CDT) Glucose, POC 145 70 - 199 mg/dL Blood 07/26/2024 10:0 1 AM CDT 07/26/2024 10:01 AM CDT Leonor Quan MD LAB POCT ORDERABLES - D EVICE Final Result Performing Organization Address [facility]/ZIP Co de Phone Number [facility] [place] [employer] [address] * POCT glucose (07/26/2024 8:47 AM CDT) Glucose, POC 165 70 - 199 mg/dL Blood 07/26/2024 8:47 AM CDT 07/26/2024 8:47 AM CDT Leonor Quan MD LAB POCT ORDERABLES - D EVICE Final Result Performing Organization Address City/[facility]/ZIP Co de Phone Number [facility] [place] [address] * Oxyhemoglobin, pulmonary artery (07/26/2024 8:06 AM CDT) Oxyhemoglobin, PA 66.4 % Comment: Interpretive Data No reference range established. Current interpretive data was last revised 2020. Blood 07/26/2024 8:06 AM CDT 07/26/2024 8:15 AM CDT us Amber KUHN LAB BLOOD ORDERABLES Fi nal Result Performing Organization Address City/[facility] Co de Phone Number [facility] [place] [address] * (ABNORMAL) Hemoglobin total, pulmonary artery (07/26/2024 8:06 AM CDT) Hemoglobin total, PA 9.8(L) 13.0 - 17.5 g/dL Blood 07/26/2024 8:06 AM CDT 07/26/2024 8:15 AM CDT Amber KUHN LAB BLOOD ORDERABLES Fi nal Result Performing Organization Address [facility] Co de Phone Number [facility] [place] [address] * POCT glucose (07/26/2024 7:46 AM CDT) Glucose, POC 175 70 - 199 mg/dL Blood 07/26/2024 7:46 AM CDT 07/26/2024 7:46 AM CDT us Leonor Quan MD LAB POCT ORDERABLES - D EVICE Final Result Performing Organization Address [facility] Co de Phone Number [facility] [place] [address] * Critical Care (07/26/2024 6:37 AM CDT) Narrative Feng Sinclair MD - 07/26/2024 6:37 AM CDT Amber Rose PA ? 07/26/2024 12:43 PM Critical Care Performed by: Amber Rose PA Authorized by: Amber Rose PA ?? CRITICAL CARE: ??Team: ??83 CTICU ??Shift: ??AM ??Level of Billing: ??Critical Care ??My time spent with this patient was 80 minutes: Critical Provider Statement: I have seen and examined the patient on this day of service. I have reviewed and confirmed the history, physical exam, laboratory and radiologic data as documented in the signed ICU note. I have reviewed and discussed my treatment plan with the ICU team and other medical/systems consultant staff, making frequent assessments and decisions regarding this patient's complex medical care. Critical Care time was exclusive of time spent performing separately billed procedures, treating other patients, and teaching. This time was in addition to and separate from critical care provided by other practitioners in my group on this day of service. Critical Care was necessary to treat or prevent imminent or life-threatening deterioration of the following conditions: ? I spent time reviewing and interpreting data from bedside monitors, laboratory results, and imaging, I spent time discussing the management of this critically ill patient with consultants and the medical staff and I spent time documenting in the medical record us Amber KUHN IN CLINIC/BEDSIDE ORDER AKILA Final Result * POCT glucose (07/26/2024 6:04 AM CDT) Glucose, POC 123 70 - 199 mg/dL Blood 07/26/2024 6:04 AM CDT 07/26/2024 6:04 AM CDT us Leonor Quan MD LAB POCT ORDERABLES - D JULIETTE Final Result [facility] [place] [address] * (ABNORMAL) Hemoglobin total, central venous (07/26/2024 4:14 AM CDT) Hemoglobin total, CV 9.3(L) 13.0 - 17.5 g/dL Blood 07/26/2024 4:14 AM CDT 07/26/2024 4:22 AM CDT Amber KUHN LAB BLOOD ORDERABLES Fi nal Result Performing Organization Address [facility] de Phone Number [facility] [place] [address] * Oxyhemoglobin, central venous (07/26/2024 4:14 AM CDT) Oxyhemoglobin, CV 67.0 % Comment: Interpretive Data No reference range established. Current interpretive data was last revised 2020. Blood 07/26/2024 4:14 AM CDT 07/26/2024 4:22 AM CDT Result [facility] Leonor Quan MD LAB BLOOD ORDERABLES Fi nal Result Performing Organization Address [facility] de Phone Number [facility] [place] [address] * (ABNORMAL) Blood gas, arterial (07/26/2024 4:14 AM CDT) pH, Art 7.37 7.35 - 7.45 PCO2, Arterial 36 35 - 45 mmHg [facility] PO2, Arterial 151(H) 83 - 108 mmHg [facility] HCO3 Art (Calculated) 22 20 - 30 mmol/L [facility] BE, art -4 mmol/L [facility] Comment: Interpretive Data No Reference Range Established Current Interpretive Data was last revised on 2017 O2 Sat Art (Measured) 100(H) 90 - 95 % [facility] Blood 07/26/2024 4:14 AM CDT 07/26/2024 4:22 AM CDT Result [facility] Leonor Quan MD LAB BLOOD ORDERABLES Fi nal Result Performing Organization Address [facility] [place] [address] * POCT glucose (07/26/2024 4:12 AM CDT) Glucose, POC 150 70 - 199 mg/dL Blood 07/26/2024 4:12 AM CDT 07/26/2024 4:12 AM CDT Leonor Quan MD LAB POCT ORDERABLES - D EVICE Final Result Performing Organization Address City/[facility] [place] [address] * POCT glucose (07/26/2024 3:15 AM CDT) Glucose, POC 127 70 - 199 mg/dL Blood 07/26/2024 3:15 AM CDT 07/26/2024 3:15 AM CDT us Leonor Quan MD LAB POCT ORDERABLES - D EVICE Final Result Performing Organization Address City/[facility]/ZIP [place] [address] * POCT glucose (07/26/2024 2:04 AM CDT) Glucose, POC 116 70 - 199 mg/dL Blood 07/26/2024 2:04 AM CDT 07/26/2024 2:04 AM CDT Leonor Quan MD LAB POCT ORDERABLES - D EVICE Final Result Performing Organization Address City/[facility]/ZIP Co de Phone Number [facility] [place] [address] * POCT glucose (07/26/2024 1:15 AM CDT) Glucose, POC 100 70 - 199 mg/dL Blood 07/26/2024 1:15 AM CDT 07/26/2024 1:15 AM CDT us Leonor Quan MD LAB POCT ORDERABLES - D EVICE Final Result Performing Organization Address City/State/ZIP Co ga Phone Number [facility] [place] [address] * eGFR (07/26/2024 12:33 AM CDT) Pathologist [facility] eGFR 63 >=60 mL/min/1. 73 m2 Comment: Interpretive Data [...] interpretive data was last reviewed 2021. Blood 07/26/2024 12:3 3 AM CDT 07/26/2024 12:53 AM CDT us Amber KUHN LAB BLOOD ORDERABLES Fi nal Result [facility] [place] [address] * (ABNORMAL) Blood gas, arterial (07/26/2024 12:33 AM CDT) pH, Art 7.34(L) 7.35 - 7.45 PCO2, Arterial 41 35 - 45 mmHg [facility] PO2, Arterial 139(H) 83 - 108 mmHg [facility] HCO3 Art (Calculated) 23 20 - 30 mmol/L [facility] BE, art -3 mmol/L [facility] Comment: Interpretive Data No Reference Range Established Current Interpretive Data was last revised on 2017 O2 Sat Art (Measured) 99(H) 90 - 95 % [facility] Blood 07/26/2024 12:3 3 AM CDT 07/26/2024 12:40 AM CDT Leonor Quan MD LAB BLOOD ORDERABLES Fi nal Result Performing Organization Address City/[facility]/ZIP [place] [address] * Oxyhemoglobin, central venous (07/26/2024 12:33 AM CDT) Oxyhemoglobin, CV 69.8 % Comment: Interpretive Data No reference range established. Current interpretive data was last revised 2020. Blood 07/26/2024 12:3 3 AM CDT 07/26/2024 12:40 AM CDT Leonor Quan MD LAB BLOOD ORDERABLES Fi nal Result [facility] [place] [address] * Phosphorus (07/26/2024 12:33 AM CDT) Phosphorus, pl 3.9 2.3 - 4.5 mg/dL Blood 07/26/2024 12:3 3 AM CDT 07/26/2024 12:53 AM CDT Leonor Quan MD LAB BLOOD ORDERABLES Fi nal Result Performing Organization Address City/[facility] Co de Phone Number [facility] Department [place] [address] * Magnesium (07/26/2024 12:33 AM CDT) [facility] Magnesium 2.1 1.4 - 2.5 mg/dL Blood 07/26/2024 12:3 3 AM CDT 07/26/2024 12:53 AM CDT Leonor Quan MD LAB BLOOD ORDERABLES Fi nal Result Performing Organization Address [facility] de Phone Number [facility] Department [place] [address] * (ABNORMAL) Basic metabolic panel (07/26/2024 12:33 AM CDT) [facility] Sodium 140 135 - 145 mmol/L Potassium, pl 4.8 3.3 - 4.9 mmol/L [facility] Chloride 107 97 - 110 mmol/L [facility] CO2 22 22 - 32 mmol/L [facility] Anion gap 11 2 - 15 mmol/L [facility] BUN 27(H) 6 - 25 mg/dL [facility] Creatinine 1.22 0.80 - 1.30 mg/dL [facility] Glucose 98 70 - 199 mg/dL [facility] Comment: Interpretive Data Fasting glucose >/= [...] interpretive data was last revised 2022. Calcium 8.5 8.5 - 10.3 mg/dL [facility] Blood 07/26/2024 12:3 3 AM CDT 07/26/2024 12:53 AM CDT Leonor Quan MD LAB BLOOD ORDERABLES Fi nal Result Performing Organization Address City/[facility] Co de Phone Number [facility] Department [place] [address] * (ABNORMAL) CBC without differential (07/26/2024 12:33 AM CDT) WBC 14.9(H) 3.8 - 9.9 K/cumm Hgb 8.2(L) 13.0 - 17.5 g/dL [facility] Hct 25.1(L) 38.9 - 50.3 % [facility] Plt 77(L) 150 - 400 K/cumm [facility] MPV 9.8 9.1 - 12.3 fL [facility] RBC 3.05(L) 4.30 - 5.80 M/cumm [facility] MCV 82.3 81.3 - 96.4 fL [facility] MCH 26.9(L) 27.1 - 33.3 pg [facility] MCHC 32.7 32.3 - 35.7 g/dL [facility] RDW CV 16.4(H) 11.1 - 14.9 % [facility] RDW SD 49.4(H) 35.7 - 48.1 fL [facility] NRBC abs 0.00 0.00 - 0.01 K/cumm [facility] Blood 07/26/2024 12:3 3 AM CDT 07/26/2024 12:45 AM CDT Leonor Quan MD LAB BLOOD ORDERABLES Fi nal Result Performing Organization Address [facility] Co de Phone Number [facility] Department [place] [address] * POCT glucose (07/26/2024 12:28 AM CDT) Glucose, POC 88 70 - 199 mg/dL Blood 07/26/2024 12:2 8 AM CDT 07/26/2024 12:28 AM CDT Leonor Quan MD LAB POCT ORDERABLES - D EVICE Final Result Performing Organization Address [facility] Co de Phone Number [facility] [place] [address] * POCT glucose (07/25/2024 10:30 PM CDT) Glucose, POC 111 70 - 199 mg/dL Blood 07/25/2024 10:3 0 PM CDT 07/25/2024 10:30 PM CDT Leonor Quan MD LAB POCT ORDERABLES - D EVICE Final Result Performing Organization Address [facility] de Phone Number [facility] Department [place] [address] * XR Chest 1 View (07/25/2024 9:17 PM CDT) Anatomical Region Laterality Modality Body, Chest N/A Computed Radiogr aphy 07/26/2024 8:50 AM CDT Impressions 07/26/2024 10:15 AM CDT The current study is compared with the prior radiograph dated ??07/24/2024 at 4:34 PM. Interval extubation. ??Sternal fixation plates are aligned and intact. Pulmonary artery catheter overlies the right pulmonary artery. Mediastinal drain and bilateral thoracostomy tubes are seen. There is unchanged mild bibasilar atelectasis with small lung volumes overall. ??There is no pneumothorax or pneumonia. ??The cardiac mediastinal silhouette is stable. Dictated by: Tone Olson M.D. The radiology attending physician has personally reviewed this study, and had reviewed and/or edited this written report and agrees with it. Electronically signed by: Roger Rodríguez M.D. Narrative 07/26/2024 10:15 AM CDT EXAMINATION: 1 view chest radiograph Procedure Note Roger Rodríguez MD - 07/26/2024 EXAMINATION: 1 view chest radiograph IMPRESSION: The current study is compared with the prior radiograph dated 07/24/2024 at 4:34 PM. Interval extubation. Sternal fixation plates are aligned and intact. Pulmonary artery catheter overlies the right pulmonary artery. Mediastinal drain and bilateral thoracostomy tubes are seen. There is unchanged mild bibasilar atelectasis with small lung volumes overall. There is no pneumothorax or pneumonia. The cardiac mediastinal silhouette is stable. Dictated by: Tone Olson M.D. The radiology attending physician has personally reviewed this study, and had reviewed and/or edited this written report and agrees with it. Electronically signed by: Roger Rodríguez M.D. Mala Pineda NP IMG XR PROCEDURES Final Resu lt * (ABNORMAL) Hemoglobin total, central venous (07/25/2024 8:07 PM CDT) Hemoglobin total, CV 8.4(L) 13.0 - 17.5 g/dL Blood 07/25/2024 8:07 PM CDT 07/25/2024 8:16 PM CDT Leonor Quan MD LAB BLOOD ORDERABLES Fi nal Result [facility] Department [place] [address] * (ABNORMAL) Blood gas, arterial (07/25/2024 8:07 PM CDT) pH, Art 7.32(L) 7.35 - 7.45 PCO2, Arterial 41 35 - 45 mmHg [facility] PO2, Arterial 73(L) 83 - 108 mmHg [facility] HCO3 Art (Calculated) 22 20 - 30 mmol/L [facility] BE, art -5 mmol/L [facility] Comment: Interpretive Data No Reference Range Established Current Interpretive Data was last revised on 2017 O2 Sat Art (Measured) 94 90 - 95 % [facility] Blood 07/25/2024 8:07 PM CDT 07/25/2024 8:16 PM CDT Leonor Quan MD LAB BLOOD ORDERABLES Fi nal Result Performing Organization Address [facility] Co de Phone Number [facility] Department [place] [address] * (ABNORMAL) Lactate (07/25/2024 8:07 PM CDT) Lactate 3.6(H) 0.7 - 2.0 mmol/L Blood 07/25/2024 8:07 PM CDT 07/25/2024 8:23 PM CDT Result [facility] Leonor Quan MD LAB BLOOD ORDERABLES Fi nal Result Performing Organization Address [facility] Co de Phone Number [facility] Department [place] [address] * Oxyhemoglobin, central venous (07/25/2024 8:07 PM CDT) Oxyhemoglobin, CV 63.6 % Comment: Interpretive Data No reference range established. Current interpretive data was last revised 2020. Blood 07/25/2024 8:07 PM CDT 07/25/2024 8:16 PM CDT Leonor Quan MD LAB BLOOD ORDERABLES Fi nal Result Performing Organization Address [facility] Co de Phone Number [facility] [place] [address] * Potassium, whole blood (07/25/2024 8:07 PM CDT) Potassium, bld 4.7 3.3 - 4.9 mmol/L Blood 07/25/2024 8:07 PM CDT 07/25/2024 8:16 PM CDT Amber KUHN LAB BLOOD ORDERABLES Fi nal Result Performing Organization Address City/[facility]/ZIP [place] [address] * POCT glucose (07/25/2024 8:05 PM CDT) Glucose, POC 119 70 - 199 mg/dL Blood 07/25/2024 8:05 PM CDT 07/25/2024 8:05 PM CDT Leonor Quan MD LAB POCT ORDERABLES - D EVICE Final Result Performing Organization Address City/[facility] [place] [address] * Critical Care (07/25/2024 6:40 PM CDT) Narrative Feng Sinclair MD - 07/25/2024 6:40 PM CDT Mala Pineda NP ? 07/26/2024 ??4:18 AM Critical Care Performed by: Mala Pineda NP Authorized by: Mala Pineda NP ?? CRITICAL CARE: ??Team: ??83 CTICU ??Shift: ??PM ??Level of Billing: ??Critical Care ??My time spent with this patient was 80 minutes: Critical Provider Statement: I have seen and examined the patient on this day of service. I have reviewed and confirmed the history, physical exam, laboratory and radiologic data as documented in the signed ICU note. I have reviewed and discussed my treatment plan with the ICU team and other medical/systems consultant staff, making frequent assessments and decisions regarding this patient's complex medical care. Critical Care time was exclusive of time spent performing separately billed procedures, treating other patients, and teaching. This time was in addition to and separate from critical care provided by other practitioners in my group on this day of service. Critical Care was necessary to treat or prevent imminent or life-threatening deterioration of the following conditions: ? I spent time reviewing and interpreting data from bedside monitors, laboratory results, and imaging, I spent time discussing the management of this critically ill patient with consultants and the medical staff and I spent time documenting in the medical record Mala Pineda NP IN CLINIC/BEDSIDE ORDERABLES Final Result * POCT glucose (07/25/2024 6:23 PM CDT) Glucose, POC 119 70 - 199 mg/dL Blood 07/25/2024 6:23 PM CDT 07/25/2024 6:23 PM CDT Leonor Quan MD LAB POCT ORDERABLES - D EVICE Final Result Performing Organization Address City/[facility]/ZIP Co de Phone Number [facility] [place] [place] [address] * POCT glucose (07/25/2024 5:03 PM CDT) Glucose, POC 117 70 - 199 mg/dL Blood 07/25/2024 5:03 PM CDT 07/25/2024 5:03 PM CDT Leonor Quan MD LAB POCT ORDERABLES - D EVICE Final Result [facility] Department [place] [address] * Critical Result Callback Chemistry (07/25/2024 5:02 PM CDT) Date Notified [id number] Time Notified 1754 [facility] TestName Lactate [facility] Called/Read Back Kenny [facility] Credentials [facility] Called By DVB [facility] Blood 07/25/2024 5:02 PM CDT 07/25/2024 5:23 PM CDT Amber KUHN LAB BLOOD ORDERABLES Fi nal Result [facility] [place] [address] * (ABNORMAL) Hemoglobin total, central venous (07/25/2024 5:02 PM CDT) Pathologist [facility] Hemoglobin total, CV 8.2(L) 13.0 - 17.5 g/dL Blood 07/25/2024 5:02 PM CDT 07/25/2024 5:12 PM CDT Amber KUHN LAB BLOOD ORDERABLES Fi nal Result Performing Organization Address City/[facility] Co de Phone Number [facility] Department [place] [address] * (ABNORMAL) Blood gas, arterial (07/25/2024 5:02 PM CDT) Pathologist [facility] pH, Art 7.30(L) 7.35 - 7.45 PCO2, Arterial 39 35 - 45 mmHg [facility] PO2, Arterial 86 83 - 108 mmHg [facility] HCO3 Art (Calculated) 20 20 - 30 mmol/L [facility] BE, art -6 mmol/L [facility] Comment: Interpretive Data No Reference Range Established Current Interpretive Data was last revised on 2017 O2 Sat Art (Measured) 97(H) 90 - 95 % [facility] Blood 07/25/2024 5:0 2 PM CDT 07/25/2024 5:12 PM CDT Leonor Quan MD LAB BLOOD ORDERABLES Fi nal Result Performing Organization Address [facility] Co de Phone Number [facility] [place] [employer] [address] * Oxyhemoglobin, central venous (07/25/2024 5:02 PM CDT) Oxyhemoglobin, CV 68.7 % Comment: Interpretive Data No reference range established. Current interpretive data was last revised 2020. Blood 07/25/2024 5:02 PM CDT 07/25/2024 5:12 PM CDT Leonor Quan MD LAB BLOOD ORDERABLES Fi nal Result Performing Organization Address [facility] [facility] Co de Phone Number [facility] [place] [address] * (ABNORMAL) Lactate (07/25/2024 5:02 PM CDT) Lactate 5.1(C) 0.7 - 2.0 mmol/L Blood 07/25/2024 5:02 PM CDT 07/25/2024 5:23 PM CDT Leonor Quan MD LAB BLOOD ORDERABLES Fi nal Result Performing Organization Address [facility] de Phone Number [facility] [place] [address] * Potassium, whole blood (07/25/2024 5:02 PM CDT) Potassium, bld 4.5 3.3 - 4.9 mmol/L Blood 07/25/2024 5:02 PM CDT 07/25/2024 5:12 PM CDT Amber KUHN LAB BLOOD ORDERABLES Fi nal Result Performing Organization Address City/[facility] Co de Phone Number [facility] [place] [address] * Potassium, whole blood (07/25/2024 3:25 PM CDT) [facility] Potassium, bld 4.5 3.3 - 4.9 mmol/L Blood 07/25/2024 3:25 PM CDT 07/25/2024 3:33 PM CDT us Amber KUHN LAB BLOOD ORDERABLES Fi nal Result Performing Organization Address City/[facility]/ZIP Co de Phone Number [facility] [place] [address] * POCT glucose (07/25/2024 3:24 PM CDT) [facility] Glucose, POC 107 70 - 199 mg/dL Blood 07/25/2024 3:24 PM CDT 07/25/2024 3:24 PM CDT us Leonor Quan MD LAB POCT ORDERABLES - D EVICE Final Result Performing Organization Address [facility] Co de Phone Number [facility] [place] [address] * (ABNORMAL) Blood gas, arterial (07/25/2024 1:13 PM CDT) [facility] pH, Art 7.30(L) 7.35 - 7.45 PCO2, Arterial 38 35 - 45 mmHg [facility] PO2, Arterial 94 83 - 108 mmHg [facility] HCO3 Art (Calculated) 19(L) 20 - 30 mmol/L [facility] BE, art -7 mmol/L [facility] Comment: Interpretive Data No Reference Range Established Current Interpretive Data was last revised on 2017 O2 Sat Art (Measured) 97(H) 90 - 95 % [facility] Blood 07/25/2024 1:13 PM CDT 07/25/2024 1:23 PM CDT Leonor Quan MD LAB BLOOD ORDERABLES Fi nal Result Performing Organization Address City/[facility] Co de Phone Number [facility] [place] [address] * Oxyhemoglobin, central venous (07/25/2024 1:13 PM CDT) Oxyhemoglobin, CV 67.1 % Comment: Interpretive Data No reference range established. Current interpretive data was last revised 2020. Blood 07/25/2024 1:13 PM CDT 07/25/2024 1:23 PM CDT Leonor Quan MD LAB BLOOD ORDERABLES Fi nal Result Performing Organization Address [facility] Co de Phone Number [facility] [place] [address] * Oxyhemoglobin, pulmonary artery (07/25/2024 1:13 PM CDT) Oxyhemoglobin, PA 58.6 % Comment: Interpretive Data No reference range established. Current interpretive data was last revised 2020. Blood 07/25/2024 1:13 PM CDT 07/25/2024 1:23 PM CDT Amber KUHN LAB BLOOD ORDERABLES Fi nal Result Performing Organization Address City/[facility] Co de Phone Number [facility] [place] [address] * POCT glucose (07/25/2024 12:40 PM CDT) Glucose, POC 117 70 - 199 mg/dL Blood 07/25/2024 12:4 0 PM CDT 07/25/2024 12:40 PM CDT us Leonor Quan MD LAB POCT ORDERABLES - D EVICE Final Result Performing Organization Address City/[facility] Co de Phone Number [facility] [place] [address] * POCT glucose (07/25/2024 10:16 AM CDT) Glucose, POC 125 70 - 199 mg/dL Blood 07/25/2024 10:1 6 AM CDT 07/25/2024 10:16 AM CDT us Leonor Quan MD LAB POCT ORDERABLES - D EVICE Final Result Performing Organization Address [facility] Co de Phone Number [facility] [place] [address] * Critical Result Callback Chemistry (07/25/2024 10:13 AM CDT) Date Notified [id number] Time Notified 1100 [facility] TestName Lactate [facility] Called/Read Back Mahesh [facility] Credentials RN [facility] Called By brandi [facility] Blood 07/25/2024 10:1 3 AM CDT 07/25/2024 10:27 AM CDT Amber KUHN LAB BLOOD ORDERABLES Fi nal Result Performing Organization Address City/[facility]/ZIP Co de Phone Number [facility] [place] [address] * (ABNORMAL) Blood gas, arterial (07/25/2024 10:13 AM CDT) pH, Art 7.29(L) 7.35 - 7.45 PCO2, Arterial 38 35 - 45 mmHg [facility] PO2, Arterial 71(L) 83 - 108 mmHg [facility] HCO3 Art (Calculated) 19(L) 20 - 30 mmol/L [facility] BE, art -8 mmol/L [facility] Comment: Interpretive Data No Reference Range Established Current Interpretive Data was last revised on 2017 O2 Sat Art (Measured) 93 90 - 95 % [facility] Blood 07/25/2024 10:1 3 AM CDT 07/25/2024 10:28 AM CDT Leonor Quan MD LAB BLOOD ORDERABLES Fi nal Result Performing Organization Address City/[facility]/ZIP Co de Phone Number [facility] [place] [address] * Oxyhemoglobin, pulmonary artery (07/25/2024 10:13 AM CDT) Oxyhemoglobin, PA 48.0 % Comment: Interpretive Data No reference range established. Current interpretive data was last revised 2020. Blood 07/25/2024 10:1 3 AM CDT 07/25/2024 10:23 AM CDT Amber KUHN LAB BLOOD ORDERABLES Fi nal Result Performing Organization Address City/[facility] Co de Phone Number [facility] [place] [address] * (ABNORMAL) Lactate (07/25/2024 10:13 AM CDT) Lactate 5.6(C) 0.7 - 2.0 mmol/L Blood 07/25/2024 10:1 3 AM CDT 07/25/2024 10:27 AM CDT Leonor Quan MD LAB BLOOD ORDERABLES Fi nal Result Performing Organization Address City/[facility] Co de Phone Number [facility] [place] [address] * (ABNORMAL) Potassium, whole blood (07/25/2024 10:13 AM CDT) Potassium, bld 5.2(H) 3.3 - 4.9 mmol/L Blood 07/25/2024 10:1 3 AM CDT 07/25/2024 10:28 AM CDT us Amber KUHN LAB BLOOD ORDERABLES Fi nal Result [facility] [place] [address] * (ABNORMAL) POC Blood Gas and Chemistries, Arterial - (07/25/2024 8:02 AM CDT) Pathologist [facility] pH, Art POC 7.26(L) 7.35 - 7.45 pCO2, Art POC 40 35 - 45 mmHg [facility] pO2, Art POC 131(H) 83 - 108 mmHg [facility] Na, POC 139 135 - 145 mmol/L [facility] K POC 5.6(H) 3.3 - 4.9 mmol/L [facility] Comment: Interpretive Data Not all point of care methods assess for hemolysis. Confirm with instrument and retest K+ if not consistent with clinical signs and symptoms. Current Interpretive Data was last revised on 2024. Cl, POC 110 97 - 110 mmol/L [facility] Ionized Ca, POC 4.75 4.50 - 5.10 mg/dL [facility] Glucose, POC 151 70 - 199 mg/dL [facility] Lactate, POC 5.2(C) 0.7 - 2.2 mmol/L [facility] SO2 (aliza) arterial 100(H) 90 - 95 % [facility] Base excess, POC -8.6 mmol/L [facility] HCO3, Art POC 18(L) 20 - 30 mmol/L [facility] Hct, POC 28.0(L) 41.4 - 51.6 % [facility] Total Hb, POC 9.3(L) 13.8 - 17.2 g/dL [facility] Blood 07/25/2024 8:02 AM CDT 07/25/2024 8:02 AM CDT us Leonor Quan MD LAB POCT ORDERABLES - D EVICE Final Result Performing Organization Address [facility] Co de Phone Number [facility] [place] [address] * POCT glucose (07/25/2024 6:53 AM CDT) Glucose, POC 139 70 - 199 mg/dL Blood 07/25/2024 6:53 AM CDT 07/25/2024 6:53 AM CDT Leonor Quan MD LAB POCT ORDERABLES - D EVICE Final Result Performing Organization Address [facility] de Phone Number [facility] Department [place] [address] * Critical Care (07/25/2024 6:35 AM CDT) Narrative Feng Sinclair MD - 07/25/2024 6:35 AM CDT Amber Rose PA ? 07/25/2024 ??3:37 PM Critical Care Performed by: Amber Rose PA Authorized by: Amber Rose PA ?? CRITICAL CARE: ??Team: ??83 CTICU ??Shift: ??AM ??Level of Billing: ??Critical Care ??My time spent with this patient was 90 minutes: Critical Provider Statement: I have seen and examined the patient on this day of service. I have reviewed and confirmed the history, physical exam, laboratory and radiologic data as documented in the signed ICU note. I have reviewed and discussed my treatment plan with the ICU team and other medical/systems consultant staff, making frequent assessments and decisions regarding this patient's complex medical care. Critical Care time was exclusive of time spent performing separately billed procedures, treating other patients, and teaching. This time was in addition to and separate from critical care provided by other practitioners in my group on this day of service. Critical Care was necessary to treat or prevent imminent or life-threatening deterioration of the following conditions: ? I spent time reviewing and interpreting data from bedside monitors, laboratory results, and imaging, I spent time discussing the management of this critically ill patient with consultants and the medical staff and I spent time documenting in the medical record us Amber KUHN IN CLINIC/BEDSIDE ORDER AKILA Final Result * POCT glucose (07/25/2024 6:13 AM CDT) Glucose, POC 131 70 - 199 mg/dL Blood 07/25/2024 6:13 AM CDT 07/25/2024 6:13 AM CDT Result [facility] Leonor Quan MD LAB POCT ORDERABLES - D EVICE Final Result Performing Organization Address [facility] Co de Phone Number [facility] Department [place] [address] * (ABNORMAL) Potassium, whole blood (07/25/2024 4:42 AM CDT) Potassium, bld 5.0(H) 3.3 - 4.9 mmol/L Blood 07/25/2024 4:42 AM CDT 07/25/2024 4:56 AM CDT Result [facility] Leonor Quan MD LAB BLOOD ORDERABLES Fi nal Result Performing Organization Address [facility]/ZIP Co de Phone Number [facility] Department [place] [address] * Oxyhemoglobin, pulmonary artery (07/25/2024 4:42 AM CDT) Oxyhemoglobin, PA 60.4 % Comment: Interpretive Data No reference range established. Current interpretive data was last revised 2020. Blood 07/25/2024 4:42 AM CDT 07/25/2024 4:56 AM CDT us Amber KUHN LAB BLOOD ORDERABLES Fi nal Result Performing Organization Address City/[facility]/ZIP Co de Phone Number [facility] [place] [employer] [address] * (ABNORMAL) Blood gas, arterial (07/25/2024 4:42 AM CDT) Pathologist [facility] pH, Art 7.26(L) 7.35 - 7.45 PCO2, Arterial 38 35 - 45 mmHg [facility] PO2, Arterial 144(H) 83 - 108 mmHg [facility] HCO3 Art (Calculated) 18(L) 20 - 30 mmol/L [facility] BE, art -9 mmol/L [facility] Comment: Interpretive Data No Reference Range Established Current Interpretive Data was last revised on 2017 O2 Sat Art (Measured) 99(H) 90 - 95 % [facility] Blood 07/25/2024 4:42 AM CDT 07/25/2024 4:56 AM CDT Leonor Quan MD LAB BLOOD ORDERABLES Fi nal Result Performing Organization Address City/[facility]/ZIP Co de Phone Number [facility] [place] [address] * POCT glucose (07/25/2024 4:41 AM CDT) [facility] Glucose, POC 167 70 - 199 mg/dL Blood 07/25/2024 4:41 AM CDT 07/25/2024 4:41 AM CDT Leonor Quan MD LAB POCT ORDERABLES - D EVICE Final Result Performing Organization Address City/[facility]/ZIP Co de Phone Number [facility] [place] [address] * eGFR (07/25/2024 4:38 AM CDT) Pathologist [facility] eGFR 70 >=60 mL/min/1. 73 m2 Comment: Interpretive Data [...] interpretive data was last reviewed 2021. Blood 07/25/2024 4:38 AM CDT 07/25/2024 5:11 AM CDT us Amber KUHN LAB BLOOD ORDERABLES Fi nal Result Performing Organization Address [facility] de Phone Number [facility] Department [place] [address] * Phosphorus (07/25/2024 4:38 AM CDT) Pathologist [facility] Phosphorus, pl 4.0 2.3 - 4.5 mg/dL Blood 07/25/2024 4:38 AM CDT 07/25/2024 5:11 AM CDT us Leonor Quan MD LAB BLOOD ORDERABLES Fi nal Result Performing Organization Address [facility]/State/ZIP Co de Phone Number [facility] [place] [address] * Magnesium (07/25/2024 4:38 AM CDT) [facility] Magnesium 2.3 1.4 - 2.5 mg/dL Blood 07/25/2024 4:38 AM CDT 07/25/2024 5:11 AM CDT Leonor Quan MD LAB BLOOD ORDERABLES Fi nal Result [facility] [place] [address] * (ABNORMAL) Basic metabolic panel (07/25/2024 4:38 AM CDT) [facility] Sodium 142 135 - 145 mmol/L Potassium, pl 5.4(H) 3.3 - 4.9 mmol/L [facility] Chloride 107 97 - 110 mmol/L [facility] CO2 20(L) 22 - 32 mmol/L [facility] Anion gap 15 2 - 15 mmol/L [facility] BUN 18 6 - 25 mg/dL [facility] Creatinine 1.12 0.80 - 1.30 mg/dL [facility] Glucose 168 70 - 199 mg/dL [facility] Comment: Interpretive Data Fasting glucose >/= [...] interpretive data was last revised 2022. Calcium 8.7 8.5 - 10.3 mg/dL [facility] Blood 07/25/2024 4:38 AM CDT 07/25/2024 5:11 AM CDT Leonor Quan MD LAB BLOOD ORDERABLES Fi nal Result Performing Organization Address [facility] Co de Phone Number [facility] [place] [address] * (ABNORMAL) CBC without differential (07/25/2024 4:38 AM CDT) WBC 24.7(H) 3.8 - 9.9 K/cumm Hgb 9.0(L) 13.0 - 17.5 g/dL [facility] Hct 28.6(L) 38.9 - 50.3 % [facility] Plt 150 150 - 400 K/cumm [facility] MPV 10.6 9.1 - 12.3 fL [facility] RBC 3.36(L) 4.30 - 5.80 M/cumm [facility] MCV 85.1 81.3 - 96.4 fL [facility] MCH 26.8(L) 27.1 - 33.3 pg [facility] MCHC 31.5(L) 32.3 - 35.7 g/dL [facility] RDW CV 15.8(H) 11.1 - 14.9 % [facility] RDW SD 48.5(H) 35.7 - 48.1 fL [facility] NRBC abs 0.00 0.00 - 0.01 K/cumm [facility] Blood 07/25/2024 4:38 AM CDT 07/25/2024 5:11 AM CDT Leonor Quan MD LAB BLOOD ORDERABLES Fi nal Result [facility] [place] [address] * POCT glucose (07/25/2024 3:18 AM CDT) Glucose, POC 153 70 - 199 mg/dL Blood 07/25/2024 3:18 AM CDT 07/25/2024 3:18 AM CDT us Leonor Quan MD LAB POCT ORDERABLES - D EVICE Final Result [facility] Department [place] [address] * (ABNORMAL) POC Blood Gas and Chemistries, Arterial - (07/25/2024 2:23 AM CDT) pH, Art POC 7.23(L) 7.35 - 7.45 pCO2, Art POC 45 35 - 45 mmHg [facility] pO2, Art POC 100 83 - 108 mmHg [facility] Na, POC 140 135 - 145 mmol/L [facility] K POC 5.0(H) 3.3 - 4.9 mmol/L [facility] Comment: Interpretive Data Not all point of care methods assess for hemolysis. Confirm with instrument and retest K+ if not consistent with clinical signs and symptoms. Current Interpretive Data was last revised on 2024. Cl, POC 110 97 - 110 mmol/L [facility] Ionized Ca, POC 4.86 4.50 - 5.10 mg/dL [facility] Glucose, POC 156 70 - 199 mg/dL [facility] Lactate, POC 5.4(C) 0.7 - 2.2 mmol/L [facility] SO2 (aliza) arterial 100(H) 90 - 95 % [facility] Base excess, POC -8.3 mmol/L [facility] HCO3, Art POC 19(L) 20 - 30 mmol/L [facility] Hct, POC 28.0(L) 41.4 - 51.6 % [facility] Total Hb, POC 9.3(L) 13.8 - 17.2 g/dL [facility] Blood 07/25/2024 2:23 AM CDT 07/25/2024 2:23 AM CDT us Leonor Quan MD LAB POCT ORDERABLES - D [place] [address] * POCT glucose (07/25/2024 1:07 AM CDT) Glucose, POC 155 70 - 199 mg/dL Blood 07/25/2024 1:07 AM CDT 07/25/2024 1:07 AM CDT Leonor Quan MD LAB POCT ORDERABLES - D EVICE Final Result Performing Organization Address City/[facility] [place] [address] * POCT glucose (07/25/2024 12:13 AM CDT) Glucose, POC 158 70 - 199 mg/dL Blood 07/25/2024 12:1 3 AM CDT 07/25/2024 12:13 AM CDT Leonor Quan MD LAB POCT ORDERABLES - D EVICE Final Result Performing Organization Address [facility]/ZIP Co de Phone Number [facility] [place] [employer] [address] * POCT glucose (07/24/2024 10:48 PM CDT) Glucose, POC 175 70 - 199 mg/dL Blood 07/24/2024 10:4 8 PM CDT 07/24/2024 10:48 PM CDT Leonor Quan MD LAB POCT ORDERABLES - D EVICE Final Result Performing Organization Address City/[facility]/ZIP Co de Phone Number [facility] [place] [employer] [address] * POCT glucose (07/24/2024 9:54 PM CDT) Glucose, POC 174 70 - 199 mg/dL Blood 07/24/2024 9:54 PM CDT 07/24/2024 9:54 PM CDT Leonor Quan MD LAB POCT ORDERABLES - D EVICE Final Result Performing Organization Address City/[facility] Co de Phone Number [facility] [place] [address] * POCT glucose (07/24/2024 8:59 PM CDT) Glucose, POC 180 70 - 199 mg/dL Blood 07/24/2024 8:59 PM CDT 07/24/2024 8:59 PM CDT Leonor Quan MD LAB POCT ORDERABLES - D EVICE Final Result Performing Organization Address [facility] de Phone Number [facility] [place] [address] * Oxyhemoglobin, pulmonary artery (07/24/2024 8:30 PM CDT) [facility] Oxyhemoglobin, PA 60.1 % Comment: Interpretive Data No reference range established. Current interpretive data was last revised 2020. Blood 07/24/2024 8:30 PM CDT 07/24/2024 8:41 PM CDT Amber KUHN LAB BLOOD ORDERABLES Fi nal Result Performing Organization Address City/[facility] Co de Phone Number [facility] [place] [address] * (ABNORMAL) Lactate (07/24/2024 8:30 PM CDT) [facility] Lactate 2.8(H) 0.7 - 2.0 mmol/L Blood 07/24/2024 8:30 PM CDT 07/24/2024 8:47 PM CDT Leonor Quan MD LAB BLOOD ORDERABLES Fi nal Result Performing Organization Address [facility] Co de Phone Number [facility] [place] [address] * (ABNORMAL) POCT glucose (07/24/2024 7:59 PM CDT) Glucose, POC 207(H) 70 - 199 mg/dL Blood 07/24/2024 7:59 PM CDT 07/24/2024 7:59 PM CDT Leonor Quan MD LAB POCT ORDERABLES - D EVICE Final Result Performing Organization Address [facility] de Phone Number [facility] [place] [address] * (ABNORMAL) POCT glucose (07/24/2024 6:59 PM CDT) Glucose, POC 204(H) 70 - 199 mg/dL Blood 07/24/2024 6:59 PM CDT 07/24/2024 6:59 PM CDT Leonor Quan MD LAB POCT ORDERABLES - D EVICE Final Result Performing Organization Address [facility] de Phone Number [facility] [place] [employer] [address] * Critical Care (07/24/2024 6:46 PM CDT) Narrative Feng Sinclair MD - 07/24/2024 6:46 PM CDT Mala Pineda NP ? 07/25/2024 ??3:37 AM Critical Care Performed by: Mala Pineda NP Authorized by: Mala Pineda NP ?? CRITICAL CARE: ??Team: ??83 CTICU ??Shift: ??PM ??Level of Billing: ??Critical Care ??My time spent with this patient was 100 minutes: Critical Provider Statement: I have seen and examined the patient on this day of service. I have reviewed and confirmed the history, physical exam, laboratory and radiologic data as documented in the signed ICU note. I have reviewed and discussed my treatment plan with the ICU team and other medical/systems consultant staff, making frequent assessments and decisions regarding this patient's complex medical care. Critical Care time was exclusive of time spent performing separately billed procedures, treating other patients, and teaching. This time was in addition to and separate from critical care provided by other practitioners in my group on this day of service. Critical Care was necessary to treat or prevent imminent or life-threatening deterioration of the following conditions: ? I spent time reviewing and interpreting data from bedside monitors, laboratory results, and imaging, I spent time discussing the management of this critically ill patient with consultants and the medical staff and I spent time documenting in the medical record us Mala Pineda NP IN CLINIC/BEDSIDE ORDERABLES Final Result * POCT glucose (07/24/2024 6:24 PM CDT) Glucose, POC 189 70 - 199 mg/dL Blood 07/24/2024 6:24 PM CDT 07/24/2024 6:24 PM CDT us Leonor Quan MD LAB POCT ORDERABLES - D EVICE Final Result Performing Organization Address City/State/[facility] Co ga Phone Number [facility] [place] [address] * XR Chest 1 View - in PM (07/24/2024 4:53 PM CDT) Anatomical Region Laterality Modality Body, Chest N/A Computed Radiogr aphy 07/25/2024 1:39 AM CDT Impressions 07/25/2024 1:39 AM CDT The current study is compared with the prior radiograph dated 07/14/2024 Endotracheal tube is 3.7 cm above the stephanie.Right internal jugular central venous catheter terminates in the upper superior vena cava. Right IJ pulmonary catheter projects over the area of the main pulmonary artery with evidence of kinking in the distal portion. Attention on follow-up is suggested. There are 3 thoracotomy tubes present. Interval median sternotomy with sternal plates present. Heart size is the upper limits of normal. There is new bibasilar airspace opacities with associated volume loss, likely representing atelectasis within the postoperative status. Small bilateral pleural effusions. No pneumothorax. Electronically signed by: Jed Perdomo M.D. Narrative 07/25/2024 1:39 AM CDT EXAMINATION: 1 view chest radiograph Procedure Note Jed Perdomo MD - 07/25/2024 EXAMINATION: 1 view chest radiograph IMPRESSION: The current study is compared with the prior radiograph dated 07/14/2024 Endotracheal tube is 3.7 cm above the stephanie.Right internal jugular central venous catheter terminates in the upper superior vena cava. Right IJ pulmonary catheter projects over the area of the main pulmonary artery with evidence of kinking in the distal portion. Attention on follow-up is suggested. There are 3 thoracotomy tubes present. Interval median sternotomy with sternal plates present. Heart size is the upper limits of normal. There is new bibasilar airspace opacities with associated volume loss, likely representing atelectasis within the postoperative status. Small bilateral pleural effusions. No pneumothorax. Electronically signed by: Jed Perdomo M.D. Amber KUHN IMG XR PROCEDURES Final Result * Oxyhemoglobin, pulmonary artery (07/24/2024 4:24 PM CDT) Pal PA 78.0 % Comment: Interpretive Data No reference range established. Current interpretive data was last revised 2020. Blood 07/24/2024 4:24 PM CDT 07/24/2024 4:31 PM CDT us Amber KUHN LAB BLOOD ORDERABLES Fi nal Result GILLIAN ERAZO [facility] [place] [address] * (ABNORMAL) Lipid panel (07/24/2024 4:21 PM [...] on 2018. Triglycerides 100 <=149 mg/dL [facility] Comment: Interpretive Data Ages < or [...] revised on 2018. HDL 26(L) >=40 mg/dL [facility] Comment: Interpretive Data Ages < or [...] on 2018. LDL, calculated 56 <=129 mg/dL [facility] Comment: Interpretive Data Ages < or [...] revised on 2024. Non-HDL Cholesterol 75 mg/dL [facility] Comment: Interpretive Data Ages < or [...] last revised on 2018. Chol/HDL ratio 4 [facility] Blood 07/24/2024 4:21 PM CDT 07/24/2024 4:34 PM CDT us Leonor Quan MD LAB BLOOD ORDERABLES Fi nal Result [facility] [place] [address] * (ABNORMAL) Basic metabolic panel (07/24/2024 4:21 PM CDT) Sodium 141 135 - 145 mmol/L Potassium, pl 4.9 3.3 - 4.9 mmol/L [facility] Chloride 107 97 - 110 mmol/L [facility] CO2 24 22 - 32 mmol/L [facility] Anion gap 10 2 - 15 mmol/L [facility] BUN 12 6 - 25 mg/dL [facility] Creatinine 0.79(L) 0.80 - 1.30 mg/dL [facility] Glucose 142 70 - 199 mg/dL [facility] Comment: Interpretive Data Fasting glucose >/= [...] interpretive data was last revised 2022. Calcium 9.1 8.5 - 10.3 mg/dL [facility] Blood 07/24/2024 4:21 PM CDT 07/24/2024 4:34 PM CDT Leonor Quan MD LAB BLOOD ORDERABLES Fi nal Result Performing Organization Address [facility] de Phone Number [facility] [place] [place] [address] * Magnesium (07/24/2024 4:21 PM CDT) Pathologist [facility] Magnesium 2.5 1.4 - 2.5 mg/dL Blood 07/24/2024 4:21 PM CDT 07/24/2024 4:34 PM CDT Leonor Quan MD LAB BLOOD ORDERABLES Fi nal Result Performing Organization Address [facility] de Phone Number [facility] [place] [address] * eGFR (07/24/2024 4:21 PM CDT) eGFR >90 >=60 mL/min/1. 73 [...] interpretive data was last reviewed 2021. Blood 07/24/2024 4:21 PM CDT 07/24/2024 4:34 PM CDT Leonor Quan MD LAB BLOOD ORDERABLES Fi nal Result Performing Organization Address City/[facility] Co de Phone Number [facility] Department [place] [address] * Phosphorus (07/24/2024 4:21 PM CDT) Phosphorus, pl 4.5 2.3 - 4.5 mg/dL Blood 07/24/2024 4:21 PM CDT 07/24/2024 4:34 PM CDT Leonor Quan MD LAB BLOOD ORDERABLES Fi nal Result Performing Organization Address [facility] de Phone Number [facility] Department [place] [address] * Triglycerides (07/24/2024 4:21 PM CDT) Triglycerides 93 <=149 mg/dL Comment: Interpretive Data Ages < or [...] Data was last revised on 2018. Blood 07/24/2024 4:21 PM CDT 07/24/2024 4:34 PM CDT Narrative [facility] - 07/24/2024 5:01 PM CDT While on propofol infusion. Amber KUHN LAB BLOOD ORDERABLES Fi nal Result Performing Organization Address [facility] de Phone Number [facility] [place] [address] * aPTT (07/24/2024 4:21 PM CDT) aPTT 34 28 - 38 sec Comment: Interpretive Data Heparin therapeutic range: 66.0 - 100.0 seconds. Range based on correlation with therapeutic heparin activity range of 0.3 - 0.7 Units/mL. Current interpretive data was last revised on 2023. Blood 07/24/2024 4:21 PM CDT 07/24/2024 4:37 PM CDT Amber KUHN LAB BLOOD ORDERABLES Fi nal Result Performing Organization Address [facility] de Phone Number [facility] [place] [address] * (ABNORMAL) Protime-INR (07/24/2024 4:21 PM CDT) Pathologist [facility] PT 15.7(H) 9.7 - 13.0 sec INR 1.44(H) 0.90 - 1.20 [facility] Comment: Interpretive data Oral anticoagulant therapeutic ranges: Venous thromboembolism prophylaxis or treatment: 2.0-3.0 CARDIOLOGY Standard range: 2.0-3.0 High-intensity range: 2.5-3.5 Refer to indication-specific guidelines for appropriate target ranges for prosthetic heart valve replacement. Current interpretive data was last revised on 2019. Blood 07/24/2024 4:21 PM CDT 07/24/2024 4:37 PM CDT Amber KUHN LAB BLOOD ORDERABLES Fi nal Result [facility] [place] [address] * (ABNORMAL) CBC without differential (07/24/2024 4:21 PM CDT) [facility] WBC 6.1 3.8 - 9.9 K/cumm Hgb 9.1(L) 13.0 - 17.5 g/dL [facility] Hct 27.8(L) 38.9 - 50.3 % [facility] Plt 79(L) 150 - 400 K/cumm [facility] MPV 10.1 9.1 - 12.3 fL [facility] RBC 3.34(L) 4.30 - 5.80 M/cumm [facility] MCV 83.2 81.3 - 96.4 fL [facility] MCH 27.2 27.1 - 33.3 pg [facility] MCHC 32.7 32.3 - 35.7 g/dL [facility] RDW CV 15.5(H) 11.1 - 14.9 % [facility] RDW SD 47.1 35.7 - 48.1 fL [facility] NRBC abs 0.00 0.00 - 0.01 K/cumm [facility] Blood 07/24/2024 4:21 PM CDT 07/24/2024 4:35 PM CDT us Amber KUHN LAB BLOOD ORDERABLES Fi nal Result [facility] Department [place] [address] * (ABNORMAL) POC Blood Gas and Chemistries, Arterial - (07/24/2024 4:14 PM CDT) pH, Art POC 7.35 7.35 - 7.45 pCO2, Art POC 41 35 - 45 mmHg [facility] pO2, Art POC 224(H) 83 - 108 mmHg [facility] Na, POC 140 135 - 145 mmol/L [facility] K POC 4.8 3.3 - 4.9 mmol/L [facility] Comment: Interpretive Data Not all point of care methods assess for hemolysis. Confirm with instrument and retest K+ if not consistent with clinical signs and symptoms. Current Interpretive Data was last revised on 2024. Cl, POC 112(H) 97 - 110 mmol/L [facility] Ionized Ca, POC 4.95 4.50 - 5.10 mg/dL [facility] Glucose, POC 139 70 - 199 mg/dL [facility] Lactate, POC 2.3(H) 0.7 - 2.2 mmol/L [facility] SO2 (aliza) arterial 100(H) 90 - 95 % [facility] Base excess, POC -2.8 mmol/L [facility] HCO3, Art POC 23 20 - 30 mmol/L [facility] Hct, POC 29.0(L) 41.4 - 51.6 % [facility] Total Hb, POC 9.5(L) 13.8 - 17.2 g/dL [facility] Blood 07/24/2024 4:14 PM CDT 07/24/2024 4:14 PM CDT us Leonor Quan MD LAB POCT ORDERABLES - D JULIETTE Final Result GILLIAN ERAZO [facility] [place] [address] * Critical Care (07/24/2024 3:22 PM CDT) Narrative Feng Sinclair MD - 07/24/2024 3:22 PM CDT Amber Rose PA ? 07/24/2024 ??5:53 PM Critical Care Performed by: Amber Rose PA Authorized by: Amber Rose PA ?? CRITICAL CARE: ??Team: ??83 CTICU ??Shift: ??AM ??Level of Billing: ??Critical Care ??My time spent with this patient was 90 minutes: Critical Provider Statement: I have seen and examined the patient on this day of service. I have reviewed and confirmed the history, physical exam, laboratory and radiologic data as documented in the signed ICU note. I have reviewed and discussed my treatment plan with the ICU team and other medical/systems consultant staff, making frequent assessments and decisions regarding this patient's complex medical care. Critical Care time was exclusive of time spent performing separately billed procedures, treating other patients, and teaching. This time was in addition to and separate from critical care provided by other practitioners in my group on this day of service. Critical Care was necessary to treat or prevent imminent or life-threatening deterioration of the following conditions: ? I spent time reviewing and interpreting data from bedside monitors, laboratory results, and imaging, I spent time discussing the management of this critically ill patient with consultants and the medical staff and I spent time documenting in the medical record us Amber KUHN IN CLINIC/BEDSIDE ORDER AKILA Final Result * (ABNORMAL) POC Thromboelastometry Panel - Heparin (07/24/2024 3:21 PM CDT) [facility] HEPTEM-CT, POC 237(H) 141 - 215 sec HEPTEM-A5, POC 30(L) 33 - 51 mm [facility] HEPTEM-A10, POC 40(L) 44 - 61 mm [facility] HEPTEM-A20, POC 47(L) 52 - 67 mm [facility] HEPTEM-MCF, POC 49(L) 54 - 69 mm [facility] HEPTEM-Run Time, POC (hh:mm:ss) 02:00:00 [facility] Blood 07/24/2024 3:21 PM CDT 07/24/2024 3:21 PM CDT Leonor Quan MD LAB POCT ORDERABLES - D EVICE Edited Result - Final Performing Organization Address City/[facility]/ZIP Co de Phone Number [facility] [place] [address] * (ABNORMAL) POC Thromboelastometry Panel - Intrinsic (07/24/2024 3:20 PM CDT) INTEM-CT, POC 245(H) 139 - 205 sec INTEM-A5, POC 33(L) 36 - 54 mm [facility] INTEM-A10, POC 43(L) 46 - 63 mm [facility] INTEM-A20, POC 50(L) 53 - 68 mm [facility] INTEM-MCF, POC 51(L) 55 - 70 mm [facility] INTEM-LI60, POC 98 93 - 100 % [facility] INTEM-ML, POC 6 0 - 7 % [facility] INTEM-Run Time, POC (hh:mm:ss) 02:00:00 [facility] Blood 07/24/2024 3:20 PM CDT 07/24/2024 3:20 PM CDT us Leonor Quan MD LAB POCT ORDERABLES - D EVICE Edited Result - Final GILLIAN ERAZO Evelin [facility] [place] [address] * (ABNORMAL) POC Thromboelastometry Panel - Extrinsic (07/24/2024 3:19 PM CDT) EXTEM-CT, POC 66 51 - 73 sec EXTEM-A5, POC 36 33 - 52 mm [facility] EXTEM-A10, POC 45 45 - 62 mm [facility] EXTEM-A20, POC 52(L) 54 - 69 mm [facility] EXTEM-MCF, POC 54(L) 57 - 72 mm [facility] EXTEM-LI60, POC 98 94 - 100 % [facility] EXTEM-ML, POC 8(H) 0 - 6 % [facility] EXTEM-Run Time, POC (hh:mm:ss) 02:00:00 [facility] Blood 07/24/2024 3:19 PM CDT 07/24/2024 3:19 PM CDT us Leonor Quan MD LAB POCT ORDERABLES - D EVICE Edited Result - Final Performing Organization Address [facility] Co de Phone Number [facility] [place] [address] * POC Thromboelastometry Panel - Fibrinogen (07/24/2024 3:19 PM CDT) FIBTEM-A5, POC 10 5 - 16 mm FIBTEM-A10, POC 11 6 - 17 mm [facility] FIBTEM-A20, POC 12 6 - 18 mm [facility] FIBTEM-MCF, POC 13 9 - 19 mm [facility] FIBTEM-Run Time, POC (hh:mm:ss) 02:00:00 [facility] Blood 07/24/2024 3:19 PM CDT 07/24/2024 3:19 PM CDT us Leonor Quan MD LAB POCT ORDERABLES - D EVICE Edited Result - Final Performing Organization Address City/[facility]/ZIP Co de Phone Number [facility] [place] [address] * Transfuse platelets (07/24/2024 2:41 PM CDT) Blood Cristina Phipps MD BLOOD TRANSFUSION ORDERAB LES Final Result Performing Organization Address [facility] Co de Phone Number [facility] [place] [address] * Transfuse plasma (07/24/2024 2:40 PM CDT) Blood Cristina Phipps MD BLOOD TRANSFUSION ORDERAB LES Final Result Performing Organization Address [facility] [place] [address] * Prepare platelets: 1 Units (07/24/2024 2:24 PM CDT) Product code [id number] Unit Number [id number] [facility] Product Blood Type OPOS [facility] Dispense Status PRESUMED TRANSFUSED [facility] Blood (Blood, Venous) 07/24/2024 2:24 PM CDT 07/24/2024 2:24 PM CDT Narrative [facility] - 07/25/2024 12:49 AM CDT Are special requirements needed? (all products are leukoreduced)->No Date required:-[id number] PLT # of Units:-1-Units Reasons:-Major active bleeding} Cristina Phipps MD BLOOD BANK PRODUCT ORDERA BLES Final Result Performing Organization Address [facility] Co de Phone Number [facility] [place] [employer] [address] * POCT Partial thromboplastin time (PTT) (07/24/2024 2:17 PM CDT) APTT, POC 34.7 32.5 - 46.1 sec Blood 07/24/2024 2:17 PM CDT 07/24/2024 2:17 PM CDT Leonor Quan MD LAB POCT ORDERABLES - D EVICE Final Result Performing Organization Address [facility] Co de Phone Number [facility] [place] [address] * (ABNORMAL) POCT prothrombin time (07/24/2024 2:17 PM CDT) [facility] PT, POC 34.3(H) 11.7 - 16.6 sec INR, POC 2.6(H) 0.9 - 1.3 [facility] Blood 07/24/2024 2:17 PM CDT 07/24/2024 2:17 PM CDT Result [facility] Leonor Quan MD LAB POCT ORDERABLES - D EVICE Final Result Performing Organization Address [facility] de Phone Number [facility] [place] [address] * (ABNORMAL) POCT hemoglobin, hematocrit and platelet count (07/24/2024 2:15 PM CDT) [facility] Hgb, POC 8.4(L) 13.0 - 17.5 g/dL Hematocrit POC 25.4(L) 38.9 - 50.3 % [facility] Platelet POC 55(L) 150 - 400 K/cumm [facility] Blood 07/24/2024 2:15 PM CDT 07/24/2024 2:15 PM CDT Leonor Quan MD LAB POCT ORDERABLES - D EVICE Final Result Performing Organization Address City/[facility] Co de Phone Number [facility] [place] [employer] [place] [address] * POCT heparin/ACT CPB (07/24/2024 2:14 PM CDT) [facility] Heparin POC 0.0 units/mL ACT, CPB 136 112 - 174 sec [facility] Blood 07/24/2024 2:14 PM CDT 07/24/2024 2:14 PM CDT Leonor Quan MD LAB POCT ORDERABLES - D EVICE Final Result [facility] [place] [address] * (ABNORMAL) POC Blood Gas and Chemistries, Arterial - (07/24/2024 2:14 PM CDT) pH, Art POC 7.35 7.35 - 7.45 pCO2, Art POC 41 35 - 45 mmHg [facility] pO2, Art POC 92 83 - 108 mmHg [facility] Na, POC 140 135 - 145 mmol/L [facility] K POC 4.7 3.3 - 4.9 mmol/L [facility] Comment: Interpretive Data Not all point of care methods assess for hemolysis. Confirm with instrument and retest K+ if not consistent with clinical signs and symptoms. Current Interpretive Data was last revised on 2024. Cl, POC 112(H) 97 - 110 mmol/L [facility] Ionized Ca, POC 5.94(H) 4.50 - 5.10 mg/dL [facility] Glucose, POC Incalculable 70 - 199 mg/dL [facility] Lactate, POC 2.7(H) 0.7 - 2.2 mmol/L [facility] SO2 (aliza) arterial 99(H) 90 - 95 % [facility] Base excess, POC -2.8 mmol/L [facility] HCO3, Art POC 23 20 - 30 mmol/L [facility] Hct, POC 26.0(L) 41.4 - 51.6 % [facility] Total Hb, POC 8.8(L) 13.8 - 17.2 g/dL [facility] Blood 07/24/2024 2:14 PM CDT 07/24/2024 2:14 PM CDT Leonor Quan MD LAB POCT ORDERABLES - D EVICE Final Result Performing Organization Address [facility] [place] [address] * POCT glucose (07/24/2024 2:13 PM CDT) Glucose, POC 113 70 - 199 mg/dL Blood 07/24/2024 2:13 PM CDT 07/24/2024 2:13 PM CDT Leonor Quan MD LAB POCT ORDERABLES - D EVICE Final Result Performing Organization Address [facility] [place] [address] * (ABNORMAL) POCT heparin/ACT CPB (07/24/2024 1:47 PM CDT) Heparin POC <2.8 units/mL ACT, CPB 456(H) 112 - 174 sec [facility] Blood 07/24/2024 1:47 PM CDT 07/24/2024 1:47 PM CDT Leonor Quan MD LAB POCT ORDERABLES - D EVICE Final Result Performing Organization Address [facility] de Phone Number [facility] [place] [employer] [place] [address] * (ABNORMAL) POCT heparin/ACT CPB (07/24/2024 1:19 PM CDT) Heparin POC <2.8 units/mL ACT, CPB 518(H) 112 - 174 sec [facility] Blood 07/24/2024 1:19 PM CDT 07/24/2024 1:19 PM CDT Leonor Quan MD LAB POCT ORDERABLES - D EVICE Final Result [facility] Evelin [facility] [place] [address] * (ABNORMAL) POC Blood Gas and Chemistries, Arterial - (07/24/2024 1:18 PM CDT) pH, Art POC 7.39 7.35 - 7.45 pCO2, Art POC 39 35 - 45 mmHg [facility] pO2, Art POC 278(H) 83 - 108 mmHg [facility] Na, POC 141 135 - 145 mmol/L [facility] K POC 5.1(H) 3.3 - 4.9 mmol/L [facility] Comment: Interpretive Data Not all point of care methods assess for hemolysis. Confirm with instrument and retest K+ if not consistent with clinical signs and symptoms. Current Interpretive Data was last revised on 2024. Cl, POC 111(H) 97 - 110 mmol/L [facility] Ionized Ca, POC 4.66 4.50 - 5.10 mg/dL [facility] Glucose, POC Incalculable 70 - 199 mg/dL [facility] Lactate, POC 1.7 0.7 - 2.2 mmol/L [facility] SO2 (aliza) arterial 99(H) 90 - 95 % [facility] Base excess, POC -1.2 mmol/L [facility] HCO3, Art POC 24 20 - 30 mmol/L [facility] Hct, POC 26.0(L) 41.4 - 51.6 % [facility] Total Hb, POC 8.6(L) 13.8 - 17.2 g/dL [facility] Blood 07/24/2024 1:18 PM CDT 07/24/2024 1:18 PM CDT us Leonor Quan MD LAB POCT ORDERABLES - D EVICE Final Result [facility] One [facility] [place] [address] * POCT glucose (07/24/2024 12:54 PM CDT) [facility] Glucose, POC 87 70 - 199 mg/dL Blood 07/24/2024 12:5 4 PM CDT 07/24/2024 12:54 PM CDT Leonor Quan MD LAB POCT ORDERABLES - D EVICE Final Result Performing Organization Address [facility]/ZIP Co de Phone Number [facility] [place] [address] * (ABNORMAL) POCT heparin/ACT CPB (07/24/2024 12:53 PM CDT) [facility] Heparin POC 3.4 units/mL ACT, CPB 553(H) 112 - 174 sec [facility] Blood 07/24/2024 12:5 3 PM CDT 07/24/2024 12:53 PM CDT Leonor Quan MD LAB POCT ORDERABLES - D EVICE Final Result Performing Organization Address [facility] de Phone Number [facility] [place] [employer] [address] * (ABNORMAL) POC Blood Gas and Chemistries, Arterial - (07/24/2024 12:52 PM CDT) [facility] pH, Art POC 7.40 7.35 - 7.45 pCO2, Art POC 39 35 - 45 mmHg [facility] pO2, Art POC 312(H) 83 - 108 mmHg [facility] Na, POC 140 135 - 145 mmol/L [facility] K POC 4.9 3.3 - 4.9 mmol/L [facility] Comment: Interpretive Data Not all point of care methods assess for hemolysis. Confirm with instrument and retest K+ if not consistent with clinical signs and symptoms. Current Interpretive Data was last revised on 2024. Cl, POC 112(H) 97 - 110 mmol/L [facility] Ionized Ca, POC 4.47(L) 4.50 - 5.10 mg/dL [facility] Glucose, POC Incalculable 70 - 199 mg/dL [facility] Lactate, POC 1.5 0.7 - 2.2 mmol/L [facility] SO2 (aliza) arterial 99(H) 90 - 95 % [facility] Base excess, POC -0.5 mmol/L [facility] HCO3, Art POC 24 20 - 30 mmol/L [facility] Hct, POC 25.0(L) 41.4 - 51.6 % [facility] Total Hb, POC 8.3(L) 13.8 - 17.2 g/dL [facility] Blood 07/24/2024 12:5 2 PM CDT 07/24/2024 12:52 PM CDT us Leonor Quan MD LAB POCT ORDERABLES - D EVICE Final Result Performing Organization Address [facility] Co de Phone Number [facility] [place] [address] * Prepare plasma: 2 Units (07/24/2024 12:45 PM CDT) Product code [id number] Unit Number [id number] [facility] Product Blood Type BPOS [facility] Dispense Status PRESUMED TRANSFUSED [facility] Blood (Blood, Venous) 07/24/2024 12:45 PM CDT 07/24/2024 12:45 PM CDT Narrative [facility] - 07/25/2024 12:49 AM CDT Date required:-[id number] FFP # of Units:-2-Units Reasons:-Active major bleeding with coagulopathy} us Cristina Phipps MD BLOOD BANK PRODUCT ORDERA BLES Final Result Performing Organization Address City/[facility]/ZIP Co de Phone Number [facility] [place] [employer] [place] [address] * Transfuse RBC (07/24/2024 12:33 PM CDT) Blood us Cristina Phipps MD BLOOD TRANSFUSION ORDERAB LES Final Result [facility] [place] [address] * (ABNORMAL) POC Blood Gas and Chemistries, Arterial - (07/24/2024 12:15 PM CDT) pH, Art POC 7.41 7.35 - 7.45 pCO2, Art POC 39 35 - 45 mmHg [facility] pO2, Art POC 314(H) 83 - 108 mmHg [facility] Na, POC 141 135 - 145 mmol/L [facility] K POC 4.5 3.3 - 4.9 mmol/L [facility] Comment: Interpretive Data Not all point of care methods assess for hemolysis. Confirm with instrument and retest K+ if not consistent with clinical signs and symptoms. Current Interpretive Data was last revised on 2024. Cl, POC 112(H) 97 - 110 mmol/L [facility] Ionized Ca, POC 4.43(L) 4.50 - 5.10 mg/dL [facility] Glucose, POC Incalculable 70 - 199 mg/dL [facility] Lactate, POC 1.2 0.7 - 2.2 mmol/L [facility] SO2 (aliza) arterial 99(H) 90 - 95 % [facility] Base excess, POC 0.1 mmol/L [facility] HCO3, Art POC 25 20 - 30 mmol/L [facility] Hct, POC 24.0(L) 41.4 - 51.6 % [facility] Total Hb, POC 7.9(L) 13.8 - 17.2 g/dL [facility] Blood 07/24/2024 12:1 5 PM CDT 07/24/2024 12:15 PM CDT us Leonor Quan MD LAB POCT ORDERABLES - D EVICE Final Result [facility] [place] [address] * (ABNORMAL) POCT heparin/ACT CPB (07/24/2024 12:14 PM CDT) Heparin POC 4.1 units/mL ACT, CPB 678(H) 112 - 174 sec [facility] Blood 07/24/2024 12:1 4 PM CDT 07/24/2024 12:14 PM CDT Leonor Quan MD LAB POCT ORDERABLES - D EVICE Final Result Performing Organization Address [facility] Co de Phone Number [facility] Department [place] [address] * (ABNORMAL) POCT heparin/ACT CPB (07/24/2024 11:42 AM CDT) [facility] Heparin POC 3.4 units/mL ACT, CPB 758(H) 112 - 174 sec [facility] Blood 07/24/2024 11:4 2 AM CDT 07/24/2024 11:42 AM CDT Leonor Quan MD LAB POCT ORDERABLES - D EVICE Final Result Performing Organization Address [facility] de Phone Number [facility] Department [place] [address] * (ABNORMAL) POC Blood Gas and Chemistries, Arterial - (07/24/2024 11:41 AM CDT) Pathologist [facility] pH, Art POC 7.38 7.35 - 7.45 pCO2, Art POC 35 35 - 45 mmHg [facility] pO2, Art POC 454(H) 83 - 108 mmHg [facility] Na, POC 140 135 - 145 mmol/L [facility] K POC 4.6 3.3 - 4.9 mmol/L [facility] Comment: Interpretive Data Not all point of care methods assess for hemolysis. Confirm with instrument and retest K+ if not consistent with clinical signs and symptoms. Current Interpretive Data was last revised on 2024. Cl, POC 110 97 - 110 mmol/L [facility] Ionized Ca, POC 4.32(L) 4.50 - 5.10 mg/dL [facility] Glucose, POC Incalculable 70 - 199 mg/dL [facility] Lactate, POC 1.1 0.7 - 2.2 mmol/L [facility] SO2 (aliza) arterial 100(H) 90 - 95 % [facility] Base excess, POC -4.0 mmol/L [facility] HCO3, Art POC 21 20 - 30 mmol/L [facility] Hct, POC 26.0(L) 41.4 - 51.6 % [facility] Total Hb, POC 8.8(L) 13.8 - 17.2 g/dL [facility] Blood 07/24/2024 11:4 1 AM CDT 07/24/2024 11:41 AM CDT us Leonor Quan MD LAB POCT ORDERABLES - D EVICE Final Result [facility] [place] [address] * (ABNORMAL) POC Blood Gas and Chemistries, Arterial - (07/24/2024 10:59 AM CDT) pH, Art POC 7.32(L) 7.35 - 7.45 pCO2, Art POC 46(H) 35 - 45 mmHg [facility] pO2, Art POC 189(H) 83 - 108 mmHg [facility] Na, POC 141 135 - 145 mmol/L [facility] K POC 4.3 3.3 - 4.9 mmol/L [facility] Comment: Interpretive Data Not all point of care methods assess for hemolysis. Confirm with instrument and retest K+ if not consistent with clinical signs and symptoms. Current Interpretive Data was last revised on 2024. Cl, POC 111(H) 97 - 110 mmol/L [facility] Ionized Ca, POC 5.79(H) 4.50 - 5.10 mg/dL [facility] Glucose, POC Incalculable 70 - 199 mg/dL [facility] Lactate, POC 1.2 0.7 - 2.2 mmol/L [facility] SO2 (aliza) arterial 100(H) 90 - 95 % [facility] Base excess, POC -2.5 mmol/L [facility] HCO3, Art POC 24 20 - 30 mmol/L [facility] Hct, POC 34.0(L) 41.4 - 51.6 % [facility] Total Hb, POC 11.3(L) 13.8 - 17.2 g/dL [facility] Blood 07/24/2024 10:5 9 AM CDT 07/24/2024 10:59 AM CDT Leonor Quan MD LAB POCT ORDERABLES - D EVICE Final Result Performing Organization Address City/[facility]/ZIP Co de Phone Number [facility] [place] [address] * (ABNORMAL) POCT heparin/ACT CPB (07/24/2024 10:57 AM CDT) Heparin POC >4.7 units/mL ACT, CPB 773(H) 112 - 174 sec [facility] Blood 07/24/2024 10:5 7 AM CDT 07/24/2024 10:57 AM CDT Leonor Quan MD LAB POCT ORDERABLES - D EVICE Final Result [facility] [place] [address] * POCT glucose (07/24/2024 10:11 AM CDT) Glucose, POC 73 70 - 199 mg/dL Blood 07/24/2024 10:1 1 AM CDT 07/24/2024 10:11 AM CDT Leonor Quan MD LAB POCT ORDERABLES - D EVICE Final Result Performing Organization Address City/[facility]/ZIP Co de Phone Number [facility] Department [place] [address] * (ABNORMAL) POC Blood Gas and Chemistries, Arterial - (07/24/2024 9:30 AM CDT) pH, Art POC 7.42 7.35 - 7.45 pCO2, Art POC 37 35 - 45 mmHg [facility] pO2, Art POC 112(H) 83 - 108 mmHg [facility] Na, POC 141 135 - 145 mmol/L [facility] K POC 3.9 3.3 - 4.9 mmol/L [facility] Comment: Interpretive Data Not all point of care methods assess for hemolysis. Confirm with instrument and retest K+ if not consistent with clinical signs and symptoms. Current Interpretive Data was last revised on 2024. Cl, POC 110 97 - 110 mmol/L [facility] Ionized Ca, POC 4.96 4.50 - 5.10 mg/dL [facility] Glucose, POC Incalculable 70 - 199 mg/dL [facility] Lactate, POC 1.6 0.7 - 2.2 mmol/L [facility] SO2 (aliza) arterial 100(H) 90 - 95 % [facility] Base excess, POC -0.3 mmol/L [facility] HCO3, Art POC 24 20 - 30 mmol/L [facility] Hct, POC 33.0(L) 41.4 - 51.6 % [facility] Total Hb, POC 11.0(L) 13.8 - 17.2 g/dL [facility] Blood 07/24/2024 9:30 AM CDT 07/24/2024 9:30 AM CDT us Leonor Quan MD LAB POCT ORDERABLES - D EVICE Final Result [facility] [place] [address] * POCT heparin dose response, CPB (07/24/2024 9:19 AM CDT) Baseline ACT POC 146 112 - 174 sec Heparin dose response slope POC 107 60 - 195 [facility] Projected Heparin Concentration POC 3.1 units/mL [facility] Blood 07/24/2024 9:19 AM CDT 07/24/2024 9:19 AM CDT Leonor Quan MD LAB POCT ORDERABLES - D EVICE Final Result Performing Organization Address City/[facility] Co de Phone Number [facility] [place] [address] * EMILE Add-On For OR (07/24/2024 8:01 AM CDT) Narrative [facility] PROSOLV_CARDIOREPORT_CONS SCIMAGE - 07/24/2024 8:01 AM CDT Procedure Auto Finalized by Rule: BW CV EMILE DURING CASE OR Please see the Anesthesiologist's Procedure Note for the results. Cristina Phipps MD CV ECHO PROCEDURES Final Result Performing Organization Address [facility] Co de Phone Number [facility] PROSOLV_[email or web address]_CONS SCIMAGE * POCT glucose (07/24/2024 6:46 AM CDT) Glucose, POC 78 70 - 199 mg/dL Blood 07/24/2024 6:46 AM CDT 07/24/2024 6:46 AM CDT Leonor Quan MD LAB POCT ORDERABLES - D EVICE Final Result Performing Organization Address [facility] Co de Phone Number [facility] [place] [place] [address] * Check Sample (07/24/2024 6:45 AM CDT) ABO Rh O Positive [facility] HCLL OTHER 07/24/2024 6:45 AM CDT 07/24/2024 7:17 AM CDT us Leonor Quan MD LAB BLOOD ORDERABLES Fi nal Result [facility] [place] [address] [facility] * Prepare RBC: 4 Units (07/24/2024 6:36 AM CDT) Product code [id number] [facility] Unit Number [id number] [facility] Product Blood Type OPOS [facility] Dispense Status PRESUMED TRANSFUSED [facility] Product code [id number] [facility] Unit Number [id number] [facility] Product Blood Type OPOS [facility] Dispense Status RETURNED [facility] Product code [id number] Unit Number [id number] [facility] Product Blood Type OPOS [facility] Dispense Status RETURNED [facility] Product code [id number] [facility] Unit Number [id number] [facility] Product Blood Type OPOS [facility] Dispense Status RETURNED [facility] Blood 07/24/2024 6:36 AM CDT 07/24/2024 6:35 AM CDT N[facility]ative [facility] - 07/25/2024 12:49 AM CDT Specify Procedure:->CABG Are special requirements needed? (All products are leukoreduced and CMV- safe)- >No Date required:-[id number] LRRBC # of [id number] Reasons:-Hold for procedure (specify procedure)} us Shantal Sánchez NP BLOOD BANK PRODUCT ORDE DAVID Final Result [facility] [place] [address] documented in this encounter Visit Diagnoses Diagnosis S/P CABG (coronary artery bypass graft)- Primary Postsurgical aortocoronary bypass status Preoperative testing Unspecified pre-operative examination Bruising Contusion of unspecified site Coronary artery disease, unspecified vessel or lesion type, unspecified whether angina present, unspecified whether 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] Other mechanical complication of infusion catheter, initial encounter (HCC) Bradycardia Other specified cardiac dysrhythmias Complete heart block (CMS/HCC) (HCC) Atrioventricular block, complete Junctional escape rhythm Coronary artery disease due to calcified coronary lesion Bradycardia Other specified cardiac dysrhythmias Complete heart block (CMS/HCC) (HCC) Atrioventricular block, complete Junctional escape rhythm DM2 (diabetes mellitus, type 2) (HCC) Bradycardia Other specified cardiac dysrhythmias Complete heart block (CMS/HCC) (HCC) Atrioventricular block, complete Junctional escape rhythm documented in this encounter Admitting Diagnoses Diagnosis CAD, multiple vessel Coronary arteriosclerosis Coronary atherosclerosis of unspecified type of vessel, [facility] or graft Coronary artery disease due to calcified coronary lesion Bradycardia Other specified cardiac dysrhythmias Complete heart block (CMS/HCC) (HCC) Atrioventricular block, complete Junctional escape rhythm documented in this encounter Administered Medications Inactive Administered Medications - up to 3 most recent administrations Medication Order MAR Action Action Date Dose Rate Site acetaminophen (TYLENOL) tablet 1,000 mg 1,000 mg, oral, Every 6 hours scheduled, First dose on Wed07/24/24 at 1900, For 5 days Given 07/29/2024 12:01 PM CDT 1,000 mg Given 07/29/2024 6:11 AM CDT 1,000 mg Given 07/29/2024 12:45 AM CDT 1,000 mg acetaminophen (TYLENOL) tablet 1,000 mg 1,000 mg, oral, Every 6 hours scheduled, First dose (after last modification) on Wed08/04/24 at 1845, Indications: PainIndications:Pain Given 08/08/2024 12:22 AM CDT 1,000 mg Given 08/07/2024 12:18 PM CDT 1,000 mg Given 08/06/2024 12:29 PM CDT 1,000 mg acetaminophen (TYLENOL) tablet 650 mg 650 mg, oral, Every 6 hours PRN, fever, Starting on Wed08/08/24 at 0600, Indications: PainIndications:Pain Given 08/11/2024 4:38 AM CDT 650 mg Given 08/08/2024 6:56 PM CDT 650 mg Given 08/08/2024 7:52 AM CDT 650 mg acetaZOLAMIDE (DIAMOX) 500 mg in sterile water 10 mL (50 mg/mL) syringe 500 mg, intravenous, Administer over 5 Minutes, Every 8 hours scheduled, First dose on Wed07/29/24 at 1400, For 3 doses, For IV administration, reconstitute 500 mg vial with 10 mL sterile water for injection for a final concentration of 50 mg/mL Given 07/30/2024 5:34 AM CDT 500 mg Given 07/29/2024 10:07 PM CDT 500 mg Given 07/29/2024 3:16 PM CDT 500 mg acetaZOLAMIDE (DIAMOX) 500 mg in sterile water 10 mL (50 mg/mL) syringe 500 mg, intravenous, Administer over 5 Minutes, Every 8 hours, First dose on Wed07/31/24 at 1215, For IV administration, reconstitute 500 mg vial with 10 mL sterile water for injection for a final concentration of 50 mg/mL Given 08/01/2024 3:23 AM CDT 500 mg Given 07/31/2024 8:26 PM CDT 500 mg Given 07/31/2024 12:52 PM CDT 500 mg albumin 5 % bottle 12.5 g 12.5 g, intravenous, Once, On Wed07/24/24 at 2200, For 1 dose, Infusion rate depends on indication and clinical situation. Suggested initial rate - 120 mL/hr. 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 5 g albumin 5 % bottle 25 g 25 g, intravenous, Once, On Wed07/24/24 at 2015, For 1 dose, Infusion rate depends on indication and clinical situation. Suggested initial rate - 120 mL/hr. 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) Given 07/24/2024 8:05 PM CDT 25 g aspirin chewable tablet 81 mg 81 mg, feeding tube, Daily, First dose on Wed07/24/24 at 1715 Given 07/25/2024 8:47 AM CDT 81 mg aspirin chewable tablet 81 mg 81 mg, oral, Daily, First dose (after last modification) on Wed07/26/24 at 0900 Given 08/11/2024 9:23 AM CDT 81 mg Given 08/10/2024 10:23 AM CDT 81 mg Given 08/09/2024 10:04 AM CDT 81 mg aspirin suppository 300 mg 300 mg, rectal, Once, On 07/24/24 at 1930, For 1 dose Given 07/24/2024 7:06 PM CDT 300 mg atorvastatin (LIPITOR) tablet 40 mg 40 mg, feeding tube, Daily, First dose on Wed07/25/24 at 0900 Given 07/25/2024 8:46 AM CDT 40 mg atorvastatin (LIPITOR) tablet 40 mg 40 mg, oral, Daily, First dose (after last modification) on Wed07/26/24 at 0900 Given 08/08/2024 9:30 AM CDT 40 mg Given 08/07/2024 8:59 AM CDT 40 mg Given 08/06/2024 9:40 AM CDT 40 mg atorvastatin (LIPITOR) tablet 80 mg 80 mg, oral, Daily, First dose (after last modification) on Wed08/09/24 at 0900 Given 08/11/2024 9:23 AM CDT 80 mg Given 08/10/2024 10:23 AM CDT 80 mg Given 08/09/2024 10:05 AM CDT 80 mg bisacodyL (DULCOLAX) suppository 10 mg 10 mg, rectal, Once, On Ann-Marie 07/27/24 at 0900, For 1 dose, Indications: constipationIndications:const ipation Given 07/27/2024 9:11 AM CDT 10 mg bisacodyL (DULCOLAX) suppository 10 mg 10 mg, rectal, Once, On 07/29/24 at 1045, For 1 dose, Indications: constipationIndications:const ipation Given 07/29/2024 10:21 AM CDT 10 mg bumetanide (BUMEX) 0.25 mg/mL infusion 1 mg/hr (4 mL/hr), intravenous, Continuous, Starting on Wed07/26/24 at 1845 Rate/Dose Change 07/29/2024 10:13 AM CDT 1 mg/hr 4 mL/hr New Bag 07/29/2024 6:15 AM CDT 2 mg/hr 8 mL/hr Rate/Dose Verify 07/29/2024 6:00 AM CDT 2 mg/hr 8 mL/hr bumetanide (BUMEX) 0.25 mg/mL injection 1 mg 1 mg, intravenous, Administer over 1 Minutes, Once, On Wed07/25/24 at 1130, For 1 dose Given 07/25/2024 11:33 AM CDT 1 mg bumetanide (BUMEX) 0.25 mg/mL injection 1 mg 1 mg, intravenous, Administer over 1 Minutes, Once, On Wed07/26/24 at 0715, For 1 dose Given 07/26/2024 6:53 AM CDT 1 mg bumetanide (BUMEX) 0.25 mg/mL injection 1 mg 1 mg, intravenous, Administer over 1 Minutes, Once, On Wed07/26/24 at 1030, For 1 dose Given 07/26/2024 10:05 AM CDT 1 mg bumetanide (BUMEX) 0.25 mg/mL injection 1 mg 1 mg, intravenous, Administer over 1 Minutes, Once, On Wed08/01/24 at 1045, For 1 dose Given 08/01/2024 11:56 AM CDT 1 mg calcium chloride IV syringe 1 g 1 g, intravenous, Once, On Ann-Marie 08/03/24 at 0130, For 1 dose, Central line preferred, Indications: hypocalcemiaIndications:hypocalcemia Given 08/03/2024 1:24 AM CDT 1 g carvediloL (COREG) tablet 3.125 mg 3.125 mg, oral, 2 times daily with meals (bkfst, dinner), First dose on Wed08/06/24 at 1800 Given 08/11/2024 9:23 AM CDT 3.125 mg Given 08/10/2024 5:24 PM CDT 3.125 mg Given 08/10/2024 10:23 AM CDT 3.125 mg ceFAZolin (ANCEF) 2,000 mg/20 mL in sterile water (premix) 2,000 mg 2,000 mg, intravenous, at 400 mL/hr, Administer over 3 Minutes, Every 8 hours scheduled, First dose on Wed07/24/24 at 2100, For 3 doses, Start 8 hours after last becca-operative dose., Indications: Prophylaxis, SurgicalIndications:Prophylaxis, Surgical Given 07/25/2024 2:27 PM CDT 2,000 mg 400 mL/hr Given 07/25/2024 6:14 AM CDT 2,000 mg 400 mL/hr Given 07/24/2024 8:04 PM CDT 2,000 mg 400 mL/hr chlorhexidine (PERIDEX) 0.12 % solution 15 mL 15 mL, swish & spit, Once, On Wed07/24/24 at 0715, For 1 dose, Pre-Op, Indications: CTS Oral Decontamination ProtocolIndications:CTS Oral Decontamination Protocol Given 07/24/2024 6:39 AM CDT 15 mL chlorhexidine (PERIDEX) 0.12 % solution 15 mL 15 mL, mouth/throat, 2 times daily, First dose on Wed07/24/24 at 2100, Swab all oral surfaces and suction excess. Discontinue Chlorhexidine Gluconate after patient liberated from mechanical ventilation., Indications: Prevention of Ventilator-Associated PneumoniaIndications:Prevention of Ventilator-Associated Pneumonia Given 07/25/2024 8:47 AM CDT 15 mL chlorhexidine (PERIDEX) 0.12 % solution 15 mL 15 mL, swish & spit, 3 times daily, First dose on Wed07/25/24 at 1300, For 15 doses, Administer chlorhexidine 0.12% via swish and spit route AFTER oral care IF patient is extubated. , Indications: CTS Oral Decontamination ProtocolIndications:CTS Oral Decontamination Protocol Given 07/30/2024 8:19 AM CDT 15 mL Given 07/29/2024 5:46 PM CDT 15 mL Given 07/29/2024 12:01 PM CDT 15 mL clopidogreL (PLAVIX) tablet 75 mg 75 mg, feeding tube, Daily, First dose on Wed07/25/24 at 0900 Given 07/25/2024 8:47 AM CDT 75 mg clopidogreL (PLAVIX) tablet 75 mg 75 mg, oral, Daily, First dose (after last modification) on Wed07/26/24 at 0900 Given 08/11/2024 9:23 AM CDT 75 mg Given 08/10/2024 10:23 AM CDT 75 mg Given 08/09/2024 10:05 AM CDT 75 mg dextrose (D10W) 10% bolus 250 mL 250 mL, intravenous, at 1,000 mL/hr, Administer over 15 Minutes, Every 15 min PRN, blood glucose less than 70 mg/dL and UNABLE to swallow/take PO glucose/juice., Starting on [facility] 08/10/24 at 1509, After treatment for hypoglycemia, recheck BG followed by treatment every 15 minutes until the BG is greater than 100 mg/dL. Then check BG 1 hour post treatment. If BG is less than 100 mg/dL, repeat Q15 minute BG checks and treatment. Call MD for each episode of hypoglycemia., Indications: hypoglycemic disorderIndications:hypoglyce yimi disorder dextrose 5% and Lactated Ringer's infusion 75 mL/hr, intravenous, Continuous, Starting on 07/30/24 at 0245 Rate/Dose Verify 07/30/2024 5:00 PM CDT 75 mL/hr 75 mL/hr Rate/Dose Verify 07/30/2024 4:00 PM CDT 75 mL/hr 75 mL/h r Rate/Dose Verify 07/30/2024 3:00 PM CDT 75 mL/hr 75 mL/h r dextrose 5% infusion 50 mL/hr, intravenous, Continuous, Starting on 07/30/24 at 1815 Rate/Dose Verify 08/01/2024 2:00 AM CDT 50 mL/hr 50 mL/hr Rate/Dose Verify 08/01/2024 1:00 AM CDT 50 mL/hr 50 mL/h r Rate/Dose Verify 08/01/2024 12:00 AM CDT 50 mL/hr 50 mL/ hr dextrose gel in packet 15 g 15 g, oral, Every 15 min PRN, low blood sugar, blood glucose less than 70 mg/dL, Starting on Ann-Marie 08/10/24 at 1509, If patient is alert and able to eat/drink, give 15 gm glucose or one juice (4 fluid ounces) NOT ORANGE JUICE. After treatment for hypoglycemia, recheck BG followed by treatment every 15 minutes until the BG is greater than 100 mg/dL. Then check BG 1 hour post-treatment. If BG is less than 100 mg/dL, repeat Q15 minute BG checks and treatment. Call MD for each episode of hypoglycemia., Indications: hypoglycemic disorderIndications:hypogly cemic disorder DOBUTamine in dextrose 5% (DOBUTREX) 1,000 mg/250 mL (4,000 mcg/mL) infusion (premix) 0-20 mcg/kg/min ? 110.2 kg (0-33.06 mL/hr), 4,000 mcg/mL, intravenous, Titrated, Starting on Wed07/24/24 at 1415, Until Wed07/24/24 at 1824, Indications: Cardiac Decompensation, Initial rate: 2.5 mcg/kg/min, Titrate: Up/Down, Titrate by: 2.5 mcg/kg/min, Every: 5 minutes, Goal: CI, CI Goal: 2.2-4 L/min/m2, RoutineIndications:Cardiac Decompensation Rate/Dose Verify 07/24/2024 6:00 PM CDT 5 mcg/kg/min 8.27 mL/hr Rate/Dose Verify 07/24/2024 5:00 PM CDT 5 mcg/kg/min 8.27 mL/hr New Bag 07/24/2024 1:41 PM CDT 5 mcg/kg/min 8.265 mL/hr DOBUTamine in dextrose 5% (DOBUTREX) 1,000 mg/250 mL (4,000 mcg/mL) infusion (premix) 5 mcg/kg/min ? 110.2 kg (8.265 mL/hr, rounded to 8.27 mL/hr), 4,000 mcg/mL, intravenous, Titrated, Starting on Wed07/24/24 at 2130, Until Wed07/24/24 at 2202, Initial rate: Do not titrate, Routine Rate/Dose Verify 07/24/2024 9:00 PM CDT 5 mcg/kg/min 8.27 mL/hr DULoxetine DR (CYMBALTA) extended release capsule 60 mg 60 mg, oral, Nightly, First dose on Wed07/25/24 at 2100, Capsule may be opened and contents mixed with applesauce or apple juice ONLY. Do not crush or chew capsule Given 08/10/2024 8:08 PM CDT 60 mg Given 08/09/2024 9:13 PM CDT 60 mg Given 08/08/2024 9:14 PM CDT 60 mg EPINEPHrine in 0.9% sodium chloride 5,000 mcg/250 mL (20 mcg/mL) infusion (premix) - ADS Override Pull Starting on Wed07/24/24 at 2106, For 1 dose, Created by cabinet override EPINEPHrine in 0.9% sodium chloride 5,000 mcg/250 mL (20 mcg/mL) infusion (premix) 0.06 mcg/kg/min ? 110.2 kg (19.836 mL/hr, rounded to 19.84 mL/hr), 20 mcg/mL, intravenous, Continuous, Starting on Wed07/24/24 at 2145, Until Wed07/25/24 at 0818, Initial rate: Do not titrate, Routine Rate/Dose Verify 07/25/2024 8:00 AM CDT 0.06 mcg/kg/min 19.84 mL/hr Rate/Dose Verify 07/25/2024 7:00 AM CDT 0.06 mcg/kg/min 19 .84 mL/hr Rate/Dose Verify 07/25/2024 6:00 AM CDT 0.06 mcg/kg/min 19 .84 mL/hr EPINEPHrine in 0.9% sodium chloride 5,000 mcg/250 mL (20 mcg/mL) infusion (premix) 0-0.1 mcg/kg/min ? 110.2 kg (0-33.06 mL/hr), 20 mcg/mL, intravenous, Titrated, Starting on Wed07/25/24 at 0900, Until Wed07/25/24 at 1002, Initial rate: 0.02 mcg/kg/min, Titrate: Up/Down, Titrate by: 0.01 mcg/kg/min, Every: Other (comment) / q6h, Goal: CI, CI Goal: Other (comment) / > 2.1, Routine Rate/Dose Verify 07/25/2024 10:00 AM CDT 0.06 mcg/kg/min 19.84 mL/hr Rate/Dose Verify 07/25/2024 9:00 AM CDT 0.06 mcg/kg/min 19 .84 mL/hr Rate/Dose Verify 07/25/2024 8:47 AM CDT 0.06 mcg/kg/min 19 .84 mL/hr EPINEPHrine in 0.9% sodium chloride 5,000 mcg/250 mL (20 mcg/mL) infusion (premix) 0.06 mcg/kg/min ? 110.2 kg (19.836 mL/hr, rounded to 19.84 mL/hr), 20 mcg/mL, intravenous, Titrated, Starting on Wed07/25/24 at 1045, Until Wed07/25/24 at 1053, Initial rate: Do not titrate, Routine New Bag 07/25/2024 10:21 AM CDT 0.06 mcg/kg/min 19.84 mL/hr EPINEPHrine in 0.9% sodium chloride 5,000 mcg/250 mL (20 mcg/mL) infusion (premix) 0.1 mcg/kg/min ? 110.2 kg (33.06 mL/hr, rounded to 33.1 mL/hr), 20 mcg/mL, intravenous, Continuous, Starting on Wed07/25/24 at 1130, Until Wed07/25/24 at 1526, Initial rate: Do not titrate, Routine Rate/Dose Verify 07/25/2024 3:00 PM CDT 0.1 mcg/kg/min 33.1 mL/hr Rate/Dose Verify 07/25/2024 2:00 PM CDT 0.1 mcg/kg/min 33. 1 mL/hr Rate/Dose Verify 07/25/2024 1:00 PM CDT 0.1 mcg/kg/min 33. 1 mL/hr EPINEPHrine in 0.9% sodium chloride 5,000 mcg/250 mL (20 mcg/mL) infusion (premix) 0-0.1 mcg/kg/min ? 110.2 kg (0-33.06 mL/hr), 20 mcg/mL, intravenous, Titrated, Starting on Wed07/25/24 at 1600, Until Wed07/25/24 at 1533, Initial rate: 0.02 mcg/kg/min, Titrate: Up/Down, Titrate by: 0.01 mcg/kg/min, Every: 2 minutes, Goal: CI, CI Goal: Other (comment) / > 2.1, Routine Rate/Dose Change 07/25/2024 3:29 PM CDT 0.09 mcg/kg/min 29.8 mL/hr EPINEPHrine in 0.9% sodium chloride 5,000 mcg/250 mL (20 mcg/mL) infusion (premix) 0-0.1 mcg/kg/min ? 110.2 kg (0-33.06 mL/hr), 20 mcg/mL, intravenous, Titrated, Starting on Wed07/25/24 at 1615, Until Wed07/25/24 at 1832, Initial rate: 0.02 mcg/kg/min, Titrate: Up/Down, Titrate by: 0.01 mcg/kg/min, Every: Other (comment) / q8h, Goal: CI, CI Goal: Other (comment) / > 2.1, Routine Rate/Dose Verify 07/25/2024 6:00 PM CDT 0.09 mcg/kg/min 29.8 mL/hr Rate/Dose Verify 07/25/2024 5:00 PM CDT 0.09 mcg/kg/min 29 .8 mL/hr Rate/Dose Verify 07/25/2024 4:51 PM CDT 0.09 mcg/kg/min 29 .8 mL/hr EPINEPHrine in 0.9% sodium chloride 5,000 mcg/250 mL (20 mcg/mL) infusion (premix) 0-0.1 mcg/kg/min ? 110.2 kg (0-33.06 mL/hr), 20 mcg/mL, intravenous, Titrated, Starting on Wed07/25/24 at 1915, Until Wed07/26/24 at 0808, Initial rate: Other (comment) / 0.08, Titrate: Down, Titrate DOWN by: 0.01 mcg/kg/min, Titrate DOWN every: Other (comment) / Q4H, Goal: CI, CI Goal: Other (comment) / >2.2, Once Epi is at 0.06, do not wean further, Routine Rate/Dose Verify 07/26/2024 7:00 AM CDT 0.06 mcg/kg/min 19.84 mL/hr Rate/Dose Verify 07/26/2024 6:00 AM CDT 0.06 mcg/kg/min 19 .84 mL/hr Rate/Dose Verify 07/26/2024 5:00 AM CDT 0.06 mcg/kg/min 1 9.84 mL/hr EPINEPHrine in 0.9% sodium chloride 5,000 mcg/250 mL (20 mcg/mL) infusion (premix) 0-0.1 mcg/kg/min ? 110.2 kg (0-33.06 mL/hr), 20 mcg/mL, intravenous, Titrated, Starting on Wed07/26/24 at 0845, Until Wed07/26/24 at 0955, Initial rate: Other (comment) / 0.08, Titrate: Down, Titrate DOWN by: 0.01 mcg/kg/min, Titrate DOWN every: Other (comment) / Q6H, Goal: CI, CI Goal: Other (comment) / >2.2, Routine Rate/Dose Change 07/26/2024 8:49 AM CDT 0.04 mcg/kg/min 13.22 mL/hr Rate/Dose Verify 07/26/2024 8:26 AM CDT 0.05 mcg/kg/min 16 .53 mL/hr EPINEPHrine in 0.9% sodium chloride 5,000 mcg/250 mL (20 mcg/mL) infusion (premix) 0.05 mcg/kg/min ? 110.2 kg (16.53 mL/hr), 20 mcg/mL, intravenous, Titrated, Starting on Wed07/26/24 at 1030, Until Wed07/26/24 at 1632, Initial rate: Do not titrate, Routine Rate/Dose Verify 07/26/2024 2:00 PM CDT 0.05 mcg/kg/min 16.53 mL/hr New Bag 07/26/2024 10:02 AM CDT 0.05 mcg/kg/min 16.53 m L/hr Rate/Dose Verify 07/26/2024 9:58 AM CDT 0.05 mcg/kg/min 16 .53 mL/hr EPINEPHrine in 0.9% sodium chloride 5,000 mcg/250 mL (20 mcg/mL) infusion (premix) 0.05 mcg/kg/min ? 110.2 kg (16.53 mL/hr), 20 mcg/mL, intravenous, Titrated, Starting on Wed07/26/24 at 1715, Until Wed07/26/24 at 1939, Initial rate: Other (comment) / 0.05, Titrate: Up/Down, Titrate by: 0.01 mcg/kg/min, Every: Other (comment) / q8h, Goal: CI, CI Goal: 2.2-4 L/min/m2, Routine Rate/Dose Verify 07/26/2024 7:00 PM CDT 0.05 mcg/kg/min 16.53 mL/hr Rate/Dose Verify 07/26/2024 4:46 PM CDT 0.05 mcg/kg/min 16 .53 mL/hr EPINEPHrine in 0.9% sodium chloride 5,000 mcg/250 mL (20 mcg/mL) infusion (premix) 0.05 mcg/kg/min ? 110.2 kg (16.53 mL/hr), 20 mcg/mL, intravenous, Continuous, Starting on Wed07/26/24 at 2015, Until Wed07/28/24 at 2112, Initial rate: Do not titrate / 0.05, Routine Rate/Dose Verify 07/28/2024 9:00 PM CDT 0.04 mcg/kg/min 13.22 mL/hr Rate/Dose Change 07/28/2024 8:00 PM CDT 0.04 mcg/kg/min 13 .22 mL/hr Rate/Dose Verify 07/28/2024 7:00 PM CDT 0.05 mcg/kg/min 16 .53 mL/hr EPINEPHrine in 0.9% sodium chloride 5,000 mcg/250 mL (20 mcg/mL) infusion (premix) 0-0.05 mcg/kg/min ? 110.2 kg (0-16.53 mL/hr), 20 mcg/mL, intravenous, Continuous, Starting on Wed07/28/24 at 2145, Until Wed08/01/24 at 0201, Initial rate: Other (comment) / 0.05, Titrate: Up/Down, Titrate by: 0.01 mcg/kg/min, Every: Other (comment) / q12, Goal: CI, CI Goal: 2.2-4 L/min/m2, Routine Rate/Dose Verify 07/31/2024 12:00 AM CDT 0.01 mcg/kg/min 3.31 mL/hr Rate/Dose Verify 07/30/2024 11:00 PM CDT 0.01 mcg/kg/min 3 .31 mL/hr Rate/Dose Verify 07/30/2024 10:00 PM CDT 0.01 mcg/kg/min 3 .31 mL/hr epoprostenol (VELETRI) 20 mcg/ml in 0.9% sodium chloride inhalation solution 160 mcg/hr (8 mL/hr), nebulization, Continuous (collection correspondent), Starting on Wed07/25/24 at 1130, For monitoring and weaning of inhaled epoprostenol therapy, assess for positive or negative responses, and contact the medical provider to obtain new orders when indicated. For positive responses (listed below): Typical practice is to wean the rate (from 160 mcg/hr (8 ml/hr) to 80 mcg/hr (4 ml/hr) to 40 mcg/hr (2 ml/hr) every 4 hours until discontinued. For negative responses (listed below): Typical practice is to resume the previous rate, then reassess. Contact the medical provider immediately if the patient's systolic blood pressure decreases more than 10% after initiation of epoprostenol, or if patient does not have a positive response within 4 hours of starting current rate. Positive Responses: Decrease in pulmonary artery pressure by 15% Improvement in cardiac index by 10% Improvement in PaO2/FiO2 ratio by 10% Negative Responses: Increase in pulmonary artery pressure by 15% Increase in pulmonary vascular resistance by 30% Decrease in oxygen saturation to less than 88% for greater than 5 minutes Decrease in cardiac index to less than 2.2 liters/min/m2 Decrease in PaO2/FiO2 ratio to less than 150 Request refill only when < 2 hours of drug remaining. This medication must be initiated within 4 hours of being dispensed, Indications: Right Heart FailureIndications:Right Heart Failure New Bag 07/26/2024 5:30 AM CDT 160 mcg/hr 8 mL/hr New Bag 07/25/2024 11:32 PM CDT 160 mcg/hr 8 mL/hr New Bag 07/25/2024 5:05 PM CDT 160 mcg/hr 8 mL/hr epoprostenol (VELETRI) 20 mcg/ml in 0.9% sodium chloride inhalation solution 80 mcg/hr (4 mL/hr), nebulization, Continuous (collection correspondent), Starting on Wed07/26/24 at 1030, For monitoring and weaning of inhaled epoprostenol therapy, assess for positive or negative responses, and contact the medical provider to obtain new orders when indicated. For positive responses (listed below): Typical practice is to wean the rate (from 160 mcg/hr (8 ml/hr) to 80 mcg/hr (4 ml/hr) to 40 mcg/hr (2 ml/hr) every 4 hours until discontinued. For negative responses (listed below): Typical practice is to resume the previous rate, then reassess. Contact the medical provider immediately if the patient's systolic blood pressure decreases more than 10% after initiation of epoprostenol, or if patient does not have a positive response within 4 hours of starting current rate. Positive Responses: Decrease in pulmonary artery pressure by 15% Improvement in cardiac index by 10% Improvement in PaO2/FiO2 ratio by 10% Negative Responses: Increase in pulmonary artery pressure by 15% Increase in pulmonary vascular resistance by 30% Decrease in oxygen saturation to less than 88% for greater than 5 minutes Decrease in cardiac index to less than 2.2 liters/min/m2 Decrease in PaO2/FiO2 ratio to less than 150 Request refill only when < 2 hours of drug remaining. This medication must be initiated within 4 hours of being dispensed, Indications: Right Heart FailureIndications:Right Heart Failure New Bag 07/26/2024 1:22 PM CDT 80 mcg/hr 4 mL/hr New Bag 07/26/2024 9:59 AM CDT 80 mcg/hr 4 mL/hr epoprostenol (VELETRI) 20 mcg/ml in 0.9% sodium chloride inhalation solution 160 mcg/hr (8 mL/hr), nebulization, Continuous (collection correspondent), Starting on Wed07/26/24 at 1715, For monitoring and weaning of inhaled epoprostenol therapy, assess for positive or negative responses, and contact the medical provider to obtain new orders when indicated. For positive responses (listed below): Typical practice is to wean the rate (from 160 mcg/hr (8 ml/hr) to 80 mcg/hr (4 ml/hr) to 40 mcg/hr (2 ml/hr) every 4 hours until discontinued. For negative responses (listed below): Typical practice is to resume the previous rate, then reassess. Contact the medical provider immediately if the patient's systolic blood pressure decreases more than 10% after initiation of epoprostenol, or if patient does not have a positive response within 4 hours of starting current rate. Positive Responses: Decrease in pulmonary artery pressure by 15% Improvement in cardiac index by 10% Improvement in PaO2/FiO2 ratio by 10% Negative Responses: Increase in pulmonary artery pressure by 15% Increase in pulmonary vascular resistance by 30% Decrease in oxygen saturation to less than 88% for greater than 5 minutes Decrease in cardiac index to less than 2.2 liters/min/m2 Decrease in PaO2/FiO2 ratio to less than 150 Request refill only when < 2 hours of drug remaining. This medication must be initiated within 4 hours of being dispensed, Indications: Right Heart FailureIndications:Right Heart Failure New Bag 07/27/2024 3:02 AM CDT 160 mcg/hr 8 mL/hr New 07/26/2024 9:14 PM CDT 160 mcg/hr 8 mL/hr New 07/26/2024 5:11 PM CDT 160 mcg/hr 8 mL/hr epoprostenol (VELETRI) 20 mcg/ml in 0.9% sodium chloride inhalation solution 160 mcg/hr (8 mL/hr), nebulization, Continuous (collection correspondent), Starting on Ann-Marie 07/27/24 at 0945, For monitoring and weaning of inhaled epoprostenol therapy, assess for positive or negative responses, and contact the medical provider to obtain new orders when indicated. For positive responses (listed below): Typical practice is to wean the rate (from 160 mcg/hr (8 ml/hr) to 80 mcg/hr (4 ml/hr) to 40 mcg/hr (2 ml/hr) every 4 hours until discontinued. For negative responses (listed below): Typical practice is to resume the previous rate, then reassess. Contact the medical provider immediately if the patient's systolic blood pressure decreases more than 10% after initiation of epoprostenol, or if patient does not have a positive response within 4 hours of starting current rate. Positive Responses: Decrease in pulmonary artery pressure by 15% Improvement in cardiac index by 10% Improvement in PaO2/FiO2 ratio by 10% Negative Responses: Increase in pulmonary artery pressure by 15% Increase in pulmonary vascular resistance by 30% Decrease in oxygen saturation to less than 88% for greater than 5 minutes Decrease in cardiac index to less than 2.2 liters/min/m2 Decrease in PaO2/FiO2 ratio to less than 150 Request refill only when < 2 hours of drug remaining. This medication must be initiated within 4 hours of being dispensed, Indications: Right Heart FailureIndications:Right Heart Failure New Bag 07/27/2024 1:53 PM CDT 160 mcg/hr 8 mL/hr New 07/27/2024 9:34 AM CDT 160 mcg/hr 8 mL/hr epoprostenol (VELETRI) 20 mcg/ml in 0.9% sodium chloride inhalation solution 120 mcg/hr (6 mL/hr), nebulization, Continuous (collection correspondent), Starting on Wed07/27/24 at 1815, For monitoring and weaning of inhaled epoprostenol therapy, assess for positive or negative responses, and contact the medical provider to obtain new orders when indicated. For positive responses (listed below): Typical practice is to wean the rate (from 160 mcg/hr (8 ml/hr) to 80 mcg/hr (4 ml/hr) to 40 mcg/hr (2 ml/hr) every 4 hours until discontinued. For negative responses (listed below): Typical practice is to resume the previous rate, then reassess. Contact the medical provider immediately if the patient's systolic blood pressure decreases more than 10% after initiation of epoprostenol, or if patient does not have a positive response within 4 hours of starting current rate. Positive Responses: Decrease in pulmonary artery pressure by 15% Improvement in cardiac index by 10% Improvement in PaO2/FiO2 ratio by 10% Negative Responses: Increase in pulmonary artery pressure by 15% Increase in pulmonary vascular resistance by 30% Decrease in oxygen saturation to less than 88% for greater than 5 minutes Decrease in cardiac index to less than 2.2 liters/min/m2 Decrease in PaO2/FiO2 ratio to less than 150 Request refill only when < 2 hours of drug remaining. 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 For positive responses (listed below): Typical practice is to wean the rate (from 160 mcg/hr (8 ml/hr) to 80 mcg/hr (4 ml/hr) to 40 mcg/hr (2 ml/hr) every 4 hours until discontinued. For negative responses (listed below): Typical practice is to resume the previous rate, then reassess. Contact the medical provider immediately if the patient's systolic blood pressure decreases more than 10% after initiation of epoprostenol, or if patient does not have a positive response within 4 hours of starting current rate. Positive Responses: Decrease in pulmonary artery pressure by 15% Improvement in cardiac index by 10% Improvement in PaO2/FiO2 ratio by 10% Negative Responses: Increase in pulmonary artery pressure by 15% Increase in pulmonary vascular resistance by 30% Decrease in oxygen saturation to less than 88% for greater than 5 minutes Decrease in cardiac index to less than 2.2 liters/min/m2 Decrease in PaO2/FiO2 ratio to less than 150 Request refill only when < 2 hours of drug remaining. This medication must be initiated within 4 hours of being dispensed, Indications: Right Heart FailureIndications:Right Heart Failure Rate/Dose Change 07/28/2024 12:41 PM CDT 40 mcg/hr 2 mL/hr Rate/Dose Change 07/28/2024 8:09 AM CDT 80 mcg/hr 4 mL/hr epoprostenol (VELETRI) 20 mcg/ml in 0.9% sodium chloride inhalation solution 40 mcg/hr (2 mL/hr), nebulization, Continuous (collection correspondent), Starting on Wed07/28/24 at 1330, For monitoring and weaning of inhaled epoprostenol therapy, assess for positive or negative responses, and contact the medical provider to obtain new orders when indicated. For positive responses (listed below): Typical practice is to wean the rate (from 160 mcg/hr (8 ml/hr) to 80 mcg/hr (4 ml/hr) to 40 mcg/hr (2 ml/hr) every 4 hours until discontinued. For negative responses (listed below): Typical practice is to resume the previous rate, then reassess. Contact the medical provider immediately if the patient's systolic blood pressure decreases more than 10% after initiation of epoprostenol, or if patient does not have a positive response within 4 hours of starting current rate. Positive Responses: Decrease in pulmonary artery pressure by 15% Improvement in cardiac index by 10% Improvement in PaO2/FiO2 ratio by 10% Negative Responses: Increase in pulmonary artery pressure by 15% Increase in pulmonary vascular resistance by 30% Decrease in oxygen saturation to less than 88% for greater than 5 minutes Decrease in cardiac index to less than 2.2 liters/min/m2 Decrease in PaO2/FiO2 ratio to less than 150 Request refill only when < 2 hours of drug remaining. This medication must be initiated within 4 hours of being dispensed, Indications: Right Heart FailureIndications:Rig ht Heart Failure Rate/Dose Change 07/28/2024 1:32 PM CDT 40 mcg/hr 2 mL/hr fentaNYL (SUBLIMAZE) preservative free injection 50 mcg 50 mcg, intravenous, Every 15 min PRN, other, pain above goal, Starting on 07/24/24 at 1615, Discontinue when patient extubated., Pain Score Goal: Less than 3, Indications: PainIndications:Pain Given 07/24/2024 5:20 PM CDT 50 mcg furosemide (LASIX) 10 mg/mL injection 40 mg 40 mg, intravenous, Once, On Wed07/25/24 at 0900, For 1 dose, For IV push: administer doses < 160 mg at a rate of 20 -40 mg/min. Doses >/= 160 mg should be administered no faster than 4 mg/min. Room temperature only, Indications: hyperkalemiaIndication s:hyperkalemia Given 07/25/2024 8:50 AM CDT 40 mg glucagon injection 1 mg 1 mg, intramuscular, Every 30 min PRN, low blood sugar, blood glucose less than 70 mg/dL AND no IV access AND unable to take PO glucose/juice., Starting on Ann-Marie 08/10/24 at 1509, After Glucagon is administered, position patient on side if possible to avoid aspiration. Obtain IV access. Follow glucagon treatment with glucose treatment or IV dextrose. After treatment for hypoglycemia, recheck BG followed by treatment every 15 minutes until the BG is greater than 100 mg/dL. Then check BG 1 hour post treatment. If BG is less than 100 mg/dL, repeat Q15 minute BG checks and treatment. Call MD for each episode of hypoglycemia. Reconstitute 1 mg vial with 1 mL SWFI. Use immediately following reconstitution. heparin 5,000 unit/mL injection 5,000 Units 5,000 Units, subcutaneous, Every 8 hours scheduled, First dose on Wed07/25/24 at 1400, Indications: Deep Vein Thrombosis Prevention, On hold since Wed08/03/2024 at 2059 until manually unheldIndications:Deep Vein Thrombosis Prevention Given 08/03/2024 8:33 PM CDT 5,000 Units Left Lower Abdomen Given 08/03/2024 2:20 PM CDT 5,000 Units L eft Lower Abdomen Given 08/02/2024 8:04 PM CDT 5,000 Units L eft Upper Abdomen HYDROmorphone (DILAUDID) injection 0.2 mg 0.2 mg, intravenous, Administer over 2 Minutes, Every 2 hours PRN, breakthrough pain, Starting on Wed07/24/24 at 1828, On hold since Wed07/25/2024 at 0500 until manually unheld Given 07/25/2024 1:05 AM CDT 0.2 mg Given 07/24/2024 8:36 PM CDT 0.2 mg Given 07/24/2024 6:36 PM CDT 0.2 mg HYDROmorphone (DILAUDID) injection 0.2 mg 0.2 mg, intravenous, Administer over 2 Minutes, Once, On Wed07/24/24 at 1930, For 1 dose Given 07/24/2024 7:05 PM CDT 0.2 mg HYDROmorphone (DILAUDID) injection 0.2 mg 0.2 mg, intravenous, Administer over 2 Minutes, Once, On Wed07/25/24 at 0930, For 1 dose Given 07/25/2024 9:04 AM CDT 0.2 mg HYDROmorphone (DILAUDID) injection 0.2 mg 0.2 mg, intravenous, Administer over 2 Minutes, Once, On Wed07/27/24 at 2215, For 1 dose Given 07/27/2024 9:51 PM CDT 0.2 mg HYDROmorphone (DILAUDID) injection 0.2 mg 0.2 mg, intravenous, Administer over 2 Minutes, Once, On Wed08/01/24 at 1315, For 1 dose Given 08/01/2024 12:46 PM CDT 0.2 mg hydrOXYzine (ATARAX) tablet 25 mg 25 mg, oral, Once, On Wed07/27/24 at 1315, For 1 dose Given 07/27/2024 12:36 PM CDT 25 mg hydrOXYzine (ATARAX) tablet 25 mg 25 mg, oral, 4 times daily PRN, anxiety, Starting on Wed07/27/24 at 1800 Given 07/29/2024 8:35 PM CDT 25 mg Given 07/29/2024 12:45 AM CDT 25 mg Given 07/28/2024 6:09 PM CDT 25 mg hydrOXYzine (ATARAX) tablet 50 mg 50 mg, oral, Once, On Wed07/27/24 at 0130, For 1 dose Given 07/27/2024 1:00 AM CDT 50 mg insulin glargine (LANTUS, SEMGLEE) 100 unit/mL injection 35 Units 35 Units, subcutaneous, Every morning, First dose (after last modification) on Wed08/06/24 at 0900, Do not mix with other insulins Given 08/09/2024 10:06 AM CDT 35 Units Left Lower Abdomen Given 08/08/2024 9:30 AM CDT 35 Units Le ft Lower Abdomen Given 08/07/2024 8:59 AM CDT 35 Units Le ft Lower Abdomen insulin glargine (LANTUS, SEMGLEE) 100 unit/mL injection 40 Units 40 Units, subcutaneous, Every morning, First dose (after last modification) on Wed08/02/24 at 0900, Do not mix with other insulins Given 08/05/2024 12:19 PM CDT 35 Units Left Lower Abdomen Given 08/03/2024 8:38 AM CDT 40 Units Le ft Lower Abdomen Given 08/02/2024 8:18 AM CDT 40 Units Le ft Lower Abdomen insulin glargine (LANTUS, SEMGLEE) 100 unit/mL injection 50 Units 50 Units, subcutaneous, Every morning, First dose on Wed07/27/24 at 1000, Do not mix with other insulins Given 08/01/2024 9:32 AM CDT 50 Units Left Upper Arm Given 07/31/2024 8:39 AM CDT 50 Units Le ft Upper Arm Given 07/30/2024 8:19 AM CDT 50 Units Le ft Upper Arm insulin lispro (HumaLOG, ADMELOG) 100 unit/mL injection 0-10 Units 0-10 Units, subcutaneous, 3 times daily with meals, First dose on Wed07/27/24 at 1200, Blood glucose mg/dL: 149 or less: No insulin 150-199: add 2 unit 200-249: add 4 units 250-299: add 6 units 300-349: add 8 units and notify physician for adjustment of insulin orders. 350-399: add 10 units and notify physician for adjustment of insulin orders. Over 400: Notify physician for adjustment of insulin orders. Do NOT hold for NPO Status, Indications: Diabetes MellitusIndications:Diabetes Mellitus Given 08/08/2024 12:37 PM CDT 2 Units Left Lower Abdomen Given 08/06/2024 5:21 PM CDT 2 Units Ri ght Lower Abdomen Given 08/06/2024 12:28 PM CDT 2 Units L eft Lower Abdomen insulin lispro (HumaLOG, ADMELOG) 100 unit/mL injection 0-4 Units 0-4 Units, subcutaneous, Nightly, First dose on Ann-Marie 08/10/24 at 2100, Blood glucose mg/dL: 199 or less: No insulin 200-249: add 1 unit 250-299: add 2 units 300-349: add 3 units and notify physician for adjustment of insulin orders. 350-399: add 4 units and notify physician for adjustment of insulin orders. Over 400: Notify physician for adjustment of insulin orders. Do NOT hold for NPO Status, Indications: Diabetes MellitusIndications:Diabetes Mellitus insulin lispro (HumaLOG, ADMELOG) 100 unit/mL injection 0-5 Units 0-5 Units, subcutaneous, Nightly, First dose on Ann-Marie 07/27/24 at 2100, Blood glucose mg/dL: 149 or less: No insulin 150-199: add 1 unit 200-249: add 2 units 250-299: add 3 units 300-349: add 4 units and notify physician for adjustment of insulin orders. 350-399: add 5 units and notify physician for adjustment of insulin orders. Over 400: Notify physician for adjustment of insulin orders. Do NOT hold for NPO Status, Indications: Diabetes MellitusIndications:Diabetes Mellitus Given 07/31/2024 8:26 PM CDT 1 Units Left Lower Abdomen Given 07/30/2024 8:20 PM CDT 1 Units Le ft Lower Abdomen Given 07/28/2024 8:00 PM CDT 1 Units Le ft Lower Abdomen insulin lispro (HumaLOG, ADMELOG) 100 unit/mL injection 0-5 Units 0-5 Units, subcutaneous, 3 times daily with meals, First dose on Ann-Marie 08/10/24 at 1800, Blood glucose mg/dL: 149 or less: No insulin 150-199: add 1 unit 200-249: add 2 units 250-299: add 3 units 300-349: add 4 units and notify physician for adjustment of insulin orders. 350-399: add 5 units and notify physician for adjustment of insulin orders. Over 400: Notify physician for adjustment of insulin orders. Do NOT hold for NPO Status, Indications: Diabetes MellitusIndications:Diabetes Mellitus insulin regular bolus from bag 4-10 Units 4-10 Units, intravenous, As needed, high blood sugar, Starting on Wed07/24/24 at 1827, INITIATE INFUSION: Blood Glucose (mg/dL) 181 - 220: Give 4 units IV bolus and start infusion 1 unit/hour 221 - 280: Give 4 units IV bolus and start infusion 2 units/hour 281 - 330: Give 6 units IV bolus and start infusion 2 units/hour 331 - 380: Give 8 units IV bolus and start infusion 3 units/hour 381 - 430: Give 10 units IV bolus and start infusion 3 units/hour Greater than 430: Call MD for orders Use the instructions above if the insulin infusion needs to be restarted., Indications: HyperglycemiaIndications:Hyp erglycemia Bolus from Bag 07/24/2024 8:00 PM CDT 4 Units insulin regular in 0.9% sodium chloride (MYXREDLIN) 100 unit/100 mL (1 unit/mL) infusion (premix) 0-30 Units/hr (0-30 mL/hr), 1 units/mL, intravenous, Titrated, Starting on Wed07/24/24 at 1900, Until Wed07/28/24 at 0952, Indications: Hyperglycemia, NON-WEIGHT BASED DOSING Blood Glucose (BG) - BG DECREASED OR SAME as last value: Less than 70 mg/dL - Stop insulin infusion *(see below for drip reinitiation instructions). Follow hypoglycemia orders. Notify covering MD. 70 - 100 mg/dL - Stop infusion *(see below for drip reinitiation instructions). Resume BG Q 1 hour. 101 - 160 mg/dL - If BG decreased by greater than or equal to 40 mg/dL, decrease infusion by 50% or stop infusion if less than or equal to 2 units/hour *(see below for drip reinitiation instructions). Resume BG Q 1 hour. If BG decreased less than 40 mg/dL, continue same rate. 161 - 200 mg/dL- If BG decreased by greater than or equal to 60 mg/dL, decrease infusion by 50% or stop infusion if less than or equal to 2 units/hour *(see below for drip reinitiation instructions). Resume BG Q 1 hour. If BG decreased less than 60 mg/dL, continue same rate. 201 - 250 mg/dl - If BG decreased by greater than or equal to 60 mg/dL continue same rate. If decreased by less than 60 mg/dL, increase by 1 unit/hr. 251 - 300 mg/dL - Increase by 2 units/hour. 301 - 349 mg/dL - Increase by 2 units/hour. 350 - 400 mg/dL - Increase by 3 units/hr. Greater than 400 mg/dL - Notify covering MD Blood Glucose (BG) - Blood glucose INCREASED since last value: 70 - 100 mg/dL - Continue to hold infusion 101 - 160 mg/dL - Maintain at present rate or if drip has been off, follow reinitiation instructions* 161 - 200 mg/dL- Increase by or restart at 1 unit/hour or if drip has been off, follow reinitiation instructions* 201 - 250 mg/dL- Give 4 units insulin IVP then increase infusion by 2 units/hour or if drip has been off, follow reinitiation instructions* 251 - 300 mg/dL - Give 4 units insulin IVP then increase infusion by 2 units/hour or if drip has been off, follow reinitiation instructions* 301 - 349 mg/dL - Give 6 units insulin IVP then increase infusion by 3 units/hour or if drip has been off, follow reinitiation instructions* 350 - 400 mg/dL - Give 6 units insulin IVP then increase infusion by 3 units/hour or if drip has been off, follow reinitiation instructions* Greater than 400 mg/dL - Notify covering MD. *Drip Reinitiation Instructions: Check BG Q 1 hour; when BG greater than 100 mg/dL, restart infusion at 50% of the most recent rate. If the most recent rate less than 2 units/hr, contact covering provider for reinitiation or transition plan. Patients with renal failure (CrCl less than 40 mL/min, urine output less than 30 mL/hr, or receiving dialysis) limit infusion rate increases to be NO SOONER THAN EVERY 3 HOURS. Contains a phosphorous buffer. Do not infuse (Y-Site) this medication with calcium or calcium-containing products, including TPN and LR. When new IV tubing is used, completely prime the tubing. Once primed, waste an additional 20 ml of insulin infusion using the IV pump prior to connecting to patient., RoutineIndications:Hyperglyc emia Rate/Dose Verify 07/27/2024 11:00 AM CDT 1 Units/hr 1 mL/hr Rate/Dose Verify 07/27/2024 10:00 AM CDT 1 Units/hr 1 mL/h r Rate/Dose Verify 07/27/2024 9:00 AM CDT 1 Units/hr 1 mL/hr isosorbide mononitrate ER (IMDUR) extended release tablet 15 mg 15 mg, oral, Daily, First dose on Ann-Marie 07/27/24 at 0945, Tablets that are scored may be split, but do not crush, chew, dissolve, open or otherwise manipulate tablet/capsule. Given 08/11/2024 9:23 AM CDT 15 m g Given 08/10/2024 10:22 AM CDT 15 mg Given 08/09/2024 10:05 AM CDT 15 mg Lactated Ringer's (LR) bolus 500 mL 500 mL, intravenous, Once, On Wed07/25/24 at 0315, For 1 dose New Bag 07/25/2024 3:15 AM CDT 500 mL Lactated Ringer's (LR) bolus 500 mL 500 mL, intravenous, Once, On Wed07/30/24 at 1115, For 1 dose New Bag 07/30/2024 10:58 AM CDT 500 mL Lactated Ringer's (LR) bolus 500 mL 500 mL, intravenous, at 250 mL/hr, Administer over 2 Hours, Once, On Wed08/08/24 at 0045, For 1 dose New Bag 08/08/2024 12:15 AM CDT 500 mL 250 mL/hr Lactated Ringer's (LR) infusion 30 mL/hr, intravenous, Continuous, Starting on Wed07/24/24 at 0715, Pre-Op Rate/Dose Verify 07/24/2024 8:02 AM CDT 100 mL/hr New Bag 07/24/2024 6:39 AM CDT 30 mL/hr 30 mL/hr Lactated Ringer's (LR) infusion 10 mL/hr, intravenous, Continuous, Starting on Wed07/24/24 at 1645 Rate/Dose Verify 07/28/2024 11:00 PM CDT 10 mL/hr 10 mL/hr Rate/Dose Verify 07/28/2024 10:00 PM CDT 10 mL/hr 10 mL/ hr Rate/Dose Verify 07/28/2024 9:00 PM CDT 10 mL/hr 10 mL/h r magnesium oxide (MAG-OX) tablet 800 mg 800 mg, oral, 2 times daily, First dose on Wed08/08/24 at 2100, 1 tablet = Magnesium oxide 400 mg = 241.3 mg elemental magnesium, Indications: hypomagnesemiaIndications:hypomagnesemia Given 08/11/2024 9:23 AM CDT 800 mg Given 08/10/2024 8:08 PM CDT 800 mg Given 08/10/2024 10:23 AM CDT 800 mg magnesium sulfate 2 g/50 mL in water (premix) 2 g 2 g, intravenous, Administer over 60 Minutes, Once, On Wed07/27/24 at 0200, For 1 dose New Bag 07/27/2024 2:27 AM CDT 2 g magnesium sulfate 2 g/50 mL in water (premix) 2 g 2 g, intravenous, Administer over 60 Minutes, Once, On Wed07/28/24 at 0615, For 1 dose New Bag 07/28/2024 6:46 AM CDT 2 g methocarbamoL (ROBAXIN) tablet 500 mg 500 mg, oral, 3 times daily PRN, muscle spasms, Starting on Wed07/25/24 at 0859 Given 07/26/2024 4:49 PM CDT 500 mg Given 07/26/2024 5:18 AM CDT 500 mg Given 07/25/2024 8:09 PM CDT 500 mg methocarbamoL (ROBAXIN) tablet 500 mg 500 mg, oral, 3 times daily, First dose (after last modification) on Wed07/27/24 at 0945 Given 07/30/2024 8:06 PM CDT 500 mg Given 07/30/2024 8:18 AM CDT 500 mg Given 07/29/2024 8:35 PM CDT 500 mg methocarbamoL (ROBAXIN) tablet 500 mg 500 mg, oral, 3 times daily, First dose (after last modification) on Wed07/31/24 at 0700 Given 08/10/2024 10:23 AM CDT 500 mg Given 08/09/2024 9:13 PM CDT 500 mg Given 08/09/2024 10:06 AM CDT 500 mg metOLazone (ZAROXOLYN) tablet 10 mg 10 mg, oral, Once, On Wed07/31/24 at 1215, For 1 dose Given 07/31/2024 12:51 PM CDT 10 mg metOLazone (ZAROXOLYN) tablet 10 mg 10 mg, oral, Once, On Wed08/01/24 at 1045, For 1 dose Given 08/01/2024 11:05 AM CDT 10 mg nitroglycerin in dextrose 5% 50 mg/250 mL (200 mcg/mL) infusion (premix) 0-400 mcg/min (0-120 mL/hr), 0.2 mg/mL, intravenous, Titrated, Starting on Wed07/24/24 at 1415, Until Wed07/24/24 at 1616, Indications: hypertension, Initial rate: 10 mcg/min, Titrate: Up/Down, Titrate by: 10 mcg/min, Every: 5 minutes, Goal: SBP, SBP Goal: 130-140 mmHg, RoutineIndications:hyperte nsion Rate/Dose Verify 07/24/2024 4:09 PM CDT 10 mcg/min 3 mL/hr Rate/Dose Change 07/24/2024 2:39 PM CDT 10 mcg/min 3 mL/hr Rate/Dose Change 07/24/2024 2:30 PM CDT 20 mcg/min 6 mL/hr nitroglycerin in dextrose 5% 50 mg/250 mL (200 mcg/mL) infusion (premix) 10 mcg/min (3 mL/hr), 0.2 mg/mL, intravenous, Continuous, Starting on Wed07/24/24 at 1700, Until Wed07/26/24 at 1939, Indications: hypertension, Initial rate: Do not titrate, RoutineIndications:hyperte nsion Rate/Dose Verify 07/26/2024 7:00 PM CDT 10 mcg/min 3 mL/hr Rate/Dose Verify 07/26/2024 2:00 PM CDT 10 mcg/min 3 mL/hr Rate/Dose Verify 07/26/2024 7:00 AM CDT 10 mcg/min 3 mL/hr norepinephrine in dextrose 5% (LEVOPHED) 8,000 mcg/250 mL (32 mcg/mL) infusion (premix) 0-2 mcg/kg/min ? 110.2 kg (0-413.25 mL/hr), 32 mcg/mL, intravenous, Titrated, Starting on Wed07/24/24 at 1045, Until Wed07/24/24 at 1616, Indications: hypotension, Initial rate: 0.05 mcg/kg/min, Titrate: Up/Down, Titrate by: 0.01 mcg/kg/min, Every: 2 minutes, Goal: MAP, MAP Goal: 60-70 mmHg, RoutineIndications:hypo tension Rate/Dose Change 07/24/2024 4:09 PM CDT 0.08 mcg/kg/min 16.53 mL/hr Rate/Dose Change 07/24/2024 3:30 PM CDT 0.06 mcg/kg/min 12 .397 mL/hr Rate/Dose Change 07/24/2024 3:20 PM CDT 0.08 mcg/kg/min 16 .53 mL/hr norepinephrine in dextrose 5% (LEVOPHED) 8,000 mcg/250 mL (32 mcg/mL) infusion (premix) 0-2 mcg/kg/min ? 110.2 kg (0-413.25 mL/hr), 32 mcg/mL, intravenous, Titrated, Starting on Wed07/24/24 at 1700, Until Wed07/25/24 at 0818, Indications: hypotension, Initial rate: 0.05 mcg/kg/min, Titrate: Up/Down, Titrate by: 0.01 mcg/kg/min, Every: 2 minutes, Goal: MAP, MAP Goal: Other (comment) / > 80, RoutineIndications:hypo tension Rate/Dose Change 07/25/2024 8:11 AM CDT 0.02 mcg/kg/min 4.13 mL/hr Rate/Dose Verify 07/25/2024 8:00 AM CDT 0.03 mcg/kg/min 6. 2 mL/hr Rate/Dose Change 07/25/2024 7:45 AM CDT 0.03 mcg/kg/min 6. 2 mL/hr ondansetron (ZOFRAN) injection 4 mg 4 mg, intravenous, Administer over 2 Minutes, Every 6 hours PRN, nausea, vomiting, Starting on Wed07/24/24 at 1610, Administer no sooner than 6 hours after last dose. oxyCODONE (ROXICODONE) tablet 2.5 mg 2.5 mg, oral, Every 4 hours PRN, 1st line for pain, Starting on Wed07/25/24 at 0516, Indications: PainIndications:Pain Given 07/25/2024 8:49 AM CDT 2.5 mg Given 07/25/2024 6:24 AM CDT 2.5 mg oxyCODONE (ROXICODONE) tablet 5 mg 5 mg, oral, Every 4 hours PRN, 1st line for pain, Starting on Wed07/25/24 at 1003, Indications: PainIndications:Pain Given 08/07/2024 10:10 PM CDT 5 mg Given 08/07/2024 8:58 AM CDT 5 mg Given 08/06/2024 12:29 PM CDT 5 mg pantoprazole (PROTONIX) 40 mg in sodium chloride 0.9% 10 mL IV Syringe 40 mg, intravenous, at 300 mL/hr, Administer over 2 Minutes, Daily, First dose on Wed07/24/24 at 1730, For IV administration, reconstitute 40 mg vial with 10 mL sodium chloride 0.9% for injection for a final concentration of 4 mg/mL, Indications: Stress Ulcer ProphylaxisIndications:Stress Ulcer Prophylaxis Rate/Dose Verify 07/24/2024 6:00 PM CDT 300 mL/hr Given 07/24/2024 5:39 PM CDT 40 mg 300 mL/hr pantoprazole DR (PROTONIX) extended release tablet 40 mg 40 mg, oral, Daily, First dose on Wed07/25/24 at 0900, Do not crush, chew, cut, dissolve, open or otherwise manipulate tablet/capsule., Indications: Treatment of Non-Bleeding Gastric DisorderIndications:Treatment of Non-Bleeding Gastric Disorder Given 08/11/2024 9:23 AM CDT 40 mg Given 08/10/2024 10:23 AM CDT 40 mg Given 08/09/2024 10:05 AM CDT 40 mg perflutren protein-a (OPTISON) 3 mL in sodium chloride 0.9% 8 mL syringe 1-8 mL, intravenous, Once in imaging, contrast, Starting on Ann-Marie 08/03/24 at 1515, For 1 dose, Intra-Procedure (CV) Given by Other 08/03/2024 3:57 PM CDT 2 mL phenylephrine in 0.9% sodium chloride (GER-SYNEPHRINE) 25,000 mcg/250 mL (100 mcg/mL) infusion (premix) solution 0-4 mcg/kg/min ? 103.1 kg (0-247.44 mL/hr), 100 mcg/mL, intravenous, Titrated, Starting on 07/29/24 at 2215, Until 07/30/24 at 0416, Initial rate: 0.5 mcg/kg/min, Titrate: Up/Down, Titrate by: 0.1 mcg/kg/min, Every: 2 minutes, Goal: MAP, MAP Goal: 65-75 mmHg, Protect from light, Routine Rate/Dose Change 07/30/2024 1:36 AM CDT 0.2 mcg/kg/min 12.37 mL/hr New Bag 07/30/2024 1:17 AM CDT 0.5 mcg/kg/min 30.9 mL/h r polyethylene glycol (MIRALAX) packet 17 g 17 g, oral, Daily, First dose on 07/24/24 at 1645, Hold for diarrhea, Indications: constipationIndications:constipation Given 07/27/2024 9:11 AM CDT 17 g Given 07/25/2024 8:46 AM CDT 17 g polyethylene glycol (MIRALAX) packet 17 g 17 g, oral, 2 times daily, First dose (after last modification) on Wed07/28/24 at 0900, Hold for diarrhea, Indications: constipationIndications:constipation Given 07/29/2024 9:16 AM CDT 17 g Given 07/28/2024 8:37 PM CDT 17 g Given 07/28/2024 8:49 AM CDT 17 g potassium chloride (KLOR-CON) packet 40 mEq 40 mEq, feeding tube, Once, On 07/31/24 at 1900, For 1 dose, Dissolve one packet in at least 120 mL of cold water or other beverage prior to administration. Given 07/31/2024 6:36 PM CDT 40 mEq potassium chloride 20 mEq/50 mL in sterile water (premix) 20 mEq 20 mEq, intravenous, at 25 mL/hr, Administer over 2 Hours, Every 1 hour PRN, K less than 4.5 mmol/L, Starting on Wed07/24/24 at 1610, Central line only, Indications: hypokalemiaIndications:hypokalemia New Bag 08/03/2024 3:29 AM CDT 20 mEq 25 mL/hr New 08/03/2024 12:46 AM CDT 20 mEq 25 mL/hr 08/02/2024 9:38 PM CDT 20 mEq 25 mL/hr potassium chloride 40 mEq/100 mL in sterile water (premix) 40 mEq 40 mEq, intravenous, at 25 mL/hr, Administer over 4 Hours, Once, On Wed07/28/24 at 2145, For 1 dose, Central line only, Indications: hypokalemiaIndications:hypokalemia New 07/28/2024 9:16 PM CDT 40 mEq 25 mL/hr potassium chloride 40 mEq/100 mL in sterile water (premix) 40 mEq 40 mEq, intravenous, at 25 mL/hr, Administer over 4 Hours, Once, On Wed07/30/24 at 0230, For 1 dose, Central line only, Indications: hypokalemiaIndications:hypokalemia 07/30/2024 2:00 AM CDT 40 mEq 25 mL/hr potassium chloride 40 mEq/100 mL in sterile water (premix) 40 mEq 40 mEq, intravenous, at 25 mL/hr, Administer over 4 Hours, Once, On Wed07/30/24 at 1400, For 1 dose, Central line only, Indications: hypokalemiaIndications:hypokalemia 07/30/2024 1:39 PM CDT 40 mEq 25 mL/hr potassium chloride 40 mEq/100 mL in sterile water (premix) 40 mEq 40 mEq, intravenous, at 25 mL/hr, Administer over 4 Hours, Every 4 hours, First dose on Wed07/31/24 at 0115, For 2 doses, Total dose = 80 mEq Central line only, Indications: hypokalemiaIndications:hypokalemia 07/31/2024 4:56 AM CDT 40 mEq 25 mL/hr 07/31/2024 1:03 AM CDT 40 mEq 25 mL/hr potassium chloride 40 mEq/100 mL in sterile water (premix) 40 mEq 40 mEq, intravenous, at 25 mL/hr, Administer over 4 Hours, Once, On Wed07/31/24 at 2145, For 1 dose, Central line only, Indications: hypokalemiaIndications:hypokalemia 07/31/2024 9:09 PM CDT 40 mEq 25 mL/hr potassium chloride 40 mEq/100 mL in sterile water (premix) 40 mEq 40 mEq, intravenous, at 25 mL/hr, Administer over 4 Hours, Once, On Wed08/01/24 at 0100, For 1 dose, Central line only, Indications: hypokalemiaIndications:hypokalemia 08/01/2024 1:13 AM CDT 40 mEq 25 mL/hr potassium chloride 40 mEq/100 mL in sterile water (premix) 40 mEq 40 mEq, intravenous, at 25 mL/hr, Administer over 4 Hours, Once, On Wed08/01/24 at 2000, For 1 dose, Central line only, Indications: hypokalemiaIndications:hypokalemia 08/01/2024 7:19 PM CDT 40 mEq 25 mL/hr potassium chloride 40 mEq/100 mL in sterile water (premix) 40 mEq 40 mEq, intravenous, at 25 mL/hr, Administer over 4 Hours, Once, On Wed08/02/24 at 0745, For 1 dose, Central line only, Indications: hypokalemiaIndications:hypokalemia 08/02/2024 8:18 AM CDT 40 mEq 25 mL/hr potassium chloride ER (KLOR-CON) extended release tablet 20 mEq 20 mEq, oral, Once, On Wed08/06/24 at 1400, For 1 dose, Tablets should not be crushed, chewed, dissolved, or otherwise manipulated. Capsules may be opened and sprinkled on a spoonful of applesauce or pudding, but the contents of the capsule should not be crushed or chewed. Given 08/06/2024 12:29 PM CDT 20 mEq potassium chloride ER (KLOR-CON) extended release tablet 30 mEq 30 mEq, oral, Every 4 hours, First dose on Wed08/03/24 at 1730, For 2 doses, Total dose = 60 mEq Tablets should not be crushed, chewed, dissolved, or otherwise manipulated. Capsules may be opened and sprinkled on a spoonful of applesauce or pudding, but the contents of the capsule should not be crushed or chewed. Given 08/03/2024 7:59 PM CDT 30 mEq Given 08/03/2024 5:34 PM CDT 30 mEq potassium chloride ER (KLOR-CON) extended release tablet 30 mEq 30 mEq, oral, Every 4 hours, First dose on Wed08/06/24 at 0015, For 2 doses, Total dose = 60 mEq Tablets should not be crushed, chewed, dissolved, or otherwise manipulated. Capsules may be opened and sprinkled on a spoonful of applesauce or pudding, but the contents of the capsule should not be crushed or chewed. Given 08/06/2024 3:15 AM CDT 30 mEq Given 08/06/2024 12:05 AM CDT 30 mEq potassium chloride ER (KLOR-CON) extended release tablet 30 mEq 30 mEq, oral, Every 4 hours, First dose on Wed08/08/24 at 0000, For 2 doses, Total dose = 60 mEq Tablets should not be crushed, chewed, dissolved, or otherwise manipulated. Capsules may be opened and sprinkled on a spoonful of applesauce or pudding, but the contents of the capsule should not be crushed or chewed. Given 08/08/2024 3:53 AM CDT 30 mEq Given 08/08/2024 12:22 AM CDT 30 mEq potassium chloride ER (KLOR-CON) extended release tablet 40 mEq 40 mEq, oral, Once, On Wed07/28/24 at 1715, For 1 dose, Tablets should not be crushed, chewed, dissolved, or otherwise manipulated. Capsules may be opened and sprinkled on a spoonful of applesauce or pudding, but the contents of the capsule should not be crushed or chewed. Given 07/28/2024 5:09 PM CDT 40 mEq potassium chloride ER (KLOR-CON) extended release tablet 40 mEq 40 mEq, oral, Once, On Wed07/31/24 at 1230, For 1 dose, Tablets should not be crushed, chewed, dissolved, or otherwise manipulated. Capsules may be opened and sprinkled on a spoonful of applesauce or pudding, but the contents of the capsule should not be crushed or chewed. Given 07/31/2024 12:52 PM CDT 40 mEq potassium chloride ER (KLOR-CON) extended release tablet 40 mEq 40 mEq, oral, Once, On Wed08/01/24 at 1100, For 1 dose, Tablets should not be crushed, chewed, dissolved, or otherwise manipulated. Capsules may be opened and sprinkled on a spoonful of applesauce or pudding, but the contents of the capsule should not be crushed or chewed. Given 08/01/2024 11:05 AM CDT 40 mEq potassium chloride ER (KLOR-CON) extended release tablet 40 mEq 40 mEq, oral, Once, On Wed08/03/24 at 0915, For 1 dose, Tablets should not be crushed, chewed, dissolved, or otherwise manipulated. Capsules may be opened and sprinkled on a spoonful of applesauce or pudding, but the contents of the capsule should not be crushed or chewed. Given 08/03/2024 8:46 AM CDT 40 mEq potassium chloride ER (KLOR-CON) extended release tablet 40 mEq 40 mEq, oral, Once, On Wed08/07/24 at 0645, For 1 dose, Tablets should not be crushed, chewed, dissolved, or otherwise manipulated. Capsules may be opened and sprinkled on a spoonful of applesauce or pudding, but the contents of the capsule should not be crushed or chewed. Given 08/07/2024 6:20 AM CDT 40 mEq potassium chloride ER (KLOR-CON) extended release tablet 40 mEq 40 mEq, oral, 2 times daily, First dose on Wed08/08/24 at 2100, Tablets should not be crushed, chewed, dissolved, or otherwise manipulated. Capsules may be opened and sprinkled on a spoonful of applesauce or pudding, but the contents of the capsule should not be crushed or chewed. Given 08/08/2024 9:15 PM CDT 40 mEq potassium chloride ER (KLOR-CON) extended release tablet 40 mEq 40 mEq, oral, Once, On Wed08/09/24 at 0330, For 1 dose, Tablets should not be crushed, chewed, dissolved, or otherwise manipulated. Capsules may be opened and sprinkled on a spoonful of applesauce or pudding, but the contents of the capsule should not be crushed or chewed. Given 08/09/2024 3:10 AM CDT 40 mEq potassium chloride ER (KLOR-CON) extended release tablet 40 mEq 40 mEq, oral, Daily, First dose (after last modification) on Wed08/09/24 at 0900, Tablets should not be crushed, chewed, dissolved, or otherwise manipulated. Capsules may be opened and sprinkled on a spoonful of applesauce or pudding, but the contents of the capsule should not be crushed or chewed. Given 08/10/2024 10:23 AM CDT 40 mEq Given 08/09/2024 10:05 AM CDT 40 mEq pregabalin (LYRICA) capsule 100 mg 100 mg, oral, 2 times daily, First dose (after last modification) on Wed08/11/24 at 2100 pregabalin (LYRICA) capsule 50 mg 50 mg, oral, 2 times daily, First dose on Wed08/10/24 at 2100 Given 08/11/2024 9:23 AM CDT 50 mg Given 08/10/2024 8:08 PM CDT 50 mg propofol (DIPRIVAN) 10 mg/mL infusion 0-50 mcg/kg/min ? 110.2 kg (0-33.06 mL/hr), 10 mg/mL, intravenous, Titrated, Starting on Wed07/24/24 at 1645, Until Wed07/24/24 at 1827, Indications: Sedation in Intubated Patients, Titration instructions: Titrate, Initial dose: 30 mcg/kg/min, Titrate: Up/Down, Titrate by: 10 mcg/kg/min, Every: 10 minutes, Goal: RASS, RASS Goal: 0, -1, -2, Discontinue when patient extubated. Room temperature only, RoutineIndications:Sedat ion in Intubated Patients Rate/Dose Verify 07/24/2024 5:00 PM CDT 30 mcg/kg/min 19.84 mL/hr Rate/Dose Verify 07/24/2024 4:18 PM CDT 30 mcg/kg/min 19.8 4 mL/hr Rate/Dose Verify 07/24/2024 4:17 PM CDT 30 mcg/kg/min 19.8 4 mL/hr propofoL (DIPRIVAN) 10 mg/mL IV - ADS Override Pull Starting on Wed07/24/24 at 1536, For 1 dose, Created by cabinet override Room temperature only QUEtiapine (SEROquel) tablet 100 mg 100 mg, oral, Nightly, First dose (after last modification) on Wed07/30/24 at 2100 Given 08/06/2024 8:27 PM CDT 100 mg Given 08/05/2024 9:32 PM CDT 100 mg Given 08/04/2024 9:18 PM CDT 100 mg QUEtiapine (SEROquel) tablet 25 mg 25 mg, oral, Daily, First dose on Wed07/28/24 at 1030 Given 07/30/2024 8:18 AM CDT 25 mg Given 07/29/2024 9:16 AM CDT 25 mg Given 07/28/2024 10:51 AM CDT 25 mg QUEtiapine (SEROquel) tablet 50 mg 50 mg, oral, Nightly, First dose on Wed07/28/24 at 2100 Given 07/29/2024 8:35 PM CDT 50 mg Given 07/28/2024 8:00 PM CDT 50 mg QUEtiapine (SEROquel) tablet 50 mg 50 mg, oral, Nightly, First dose (after last modification) on Wed08/07/24 at 2100 Given 08/09/2024 9:14 PM CDT 50 mg Given 08/08/2024 9:14 PM CDT 50 mg Given 08/07/2024 8:59 PM CDT 50 mg ramelteon (ROZEREM) tablet 8 mg 8 mg, oral, Nightly PRN, sleep, Starting on Wed08/08/24 at 2014, Indications: Sleep-Onset InsomniaIndications:Sleep-Onset Insomnia Given 08/08/2024 9:14 PM CDT 8 mg sacubitriL-valsartan (ENTRESTO) 24-26 mg tablet 1 tablet 1 tablet, oral, 2 times daily, First dose on Wed08/07/24 at 2100, Indications: chronic heart failure, On hold since Wed08/08/2024 at 1930 until manually unheldIndications:chronic heart failure Given 08/07/2024 8:59 PM CDT 1 ta blet senna (SENOKOT) tablet 1 tablet 1 tablet, oral, 2 times daily, First dose on Wed07/24/24 at 2100, Hold for diarrhea., Indications: constipationIndications:constipation Given 08/03/2024 8:38 AM CDT 1 table t Given 08/02/2024 8:04 PM CDT 1 tablet Given 08/02/2024 8:19 AM CDT 1 tablet sodium chloride 0.9% flush 10-30 mL 10-30 mL, intra-catheter, As needed, volume as needed for cardiac output measurement unless continuous cardiac output available, Starting on Wed07/24/24 at 1610 Given 07/27/2024 9:55 PM CDT 30 mL sodium chloride 0.9% infusion 30 mL/hr, intravenous, Continuous, Starting on Wed08/04/24 at 0815 Rate/Dose Verify 08/04/2024 7:37 AM CDT 30 mL/hr New Bag 08/04/2024 7:30 AM CDT 30 mL/hr 30 mL/hr sodium chloride 0.9% solution 3-12 mL/hr, intra-catheter, Continuous, Starting on Wed07/24/24 at 1645, Amount needed for invasive pressure monitoring with 300 mg Hg to maintain patency. Rate/Dose Verify 08/04/2024 6:00 AM CDT 3 mL/hr 3 mL/hr Rate/Dose Change 08/04/2024 4:00 AM CDT 3 mL/hr 3 mL/hr Rate/Dose Verify 08/04/2024 3:00 AM CDT 6 mL/hr 6 mL/hr sodium zirconium cyclosilicate (LOKELMA) packet 10 g 10 g, oral, Once, On Wed07/25/24 at 0900, For 1 dose, Adjust medication timing to ensure other oral medications are administered at least 2 hours before or 2 hours after sodium zirconium cyclosilicate. Empty packet(s) into a glass with 3 tablespoons (45 mL) of water. Stir and administer immediately. Repeat until no powder remains in glass., Indications: hyperkalemiaIndications:hyp erkalemia Given 07/25/2024 8:46 AM CDT 10 g vancomycin 1500 mg/515 mL in sodium chloride 0.9% (premix) 1,500 mg 1,500 mg, intravenous, Administer over 90 Minutes, Once, On Wed08/04/24 at 0800, For 1 dose, Pre-Procedure (CV), Indications: Prophylaxis, SurgicalIndications:Prophyl axis, Surgical New Bag 08/04/2024 7:30 AM CDT 1,500 mg vancomycin 1500 mg/515 mL in sodium chloride 0.9% (premix) 1,500 mg 1,500 mg, intravenous, Administer over 90 Minutes, Once, On Wed08/04/24 at 2015, For 1 dose, Administer 12 hours after pre-op dose., Indications: Prophylaxis, SurgicalIndications:Prophyl axis, Surgical New Bag 08/04/2024 9:17 PM CDT 1,500 mg vasopressin in 5% dextrose (VASOSTRICT) 20 unit/100 mL (0.2 unit/mL) infusion 0-0.06 Units/min (0-18 mL/hr), 0.2 Units/mL, intravenous, Titrated, Starting on Wed07/24/24 at 2115, Until Wed07/25/24 at 0818, Initial rate: 0.04 units/min, Titrate: Up/Down, Titrate by: 0.01 units/min, Every: 5 minutes, Goal: MAP, MAP Goal: Other (comment) / >80, Routine Rate/Dose Change 07/25/2024 6:10 AM CDT 0.01 Units/min 3 mL/hr Rate/Dose Verify 07/25/2024 6:00 AM CDT 0.02 Units/min 6 m L/hr Rate/Dose Change 07/25/2024 5:20 AM CDT 0.02 Units/min 6 m L/hr vasopressin in 5% dextrose (VASOSTRICT) 20 unit/100 mL (0.2 unit/mL) infusion 0-0.06 Units/min (0-18 mL/hr), 0.2 Units/mL, intravenous, Titrated, Starting on Wed07/25/24 at 1045, Until Wed07/26/24 at 0954, Initial rate: 0.04 units/min, Titrate: Up/Down, Titrate by: 0.01 units/min, Every: 5 minutes, Goal: MAP, MAP Goal: Other (comment) / > 75 mmHg, Routine Rate/Dose Verify 07/25/2024 3:00 PM CDT 0.02 Units/min 6 mL/hr Restarted 07/25/2024 2:56 PM CDT 0.02 Units/min 6 mL/hr Rate/Dose Verify 07/25/2024 11:00 AM CDT 0.02 Units/min 6 mL/hr documented in this encounter Discontinued Medications Medication Sig Discontinue Reason Start Date End Da te metFORMIN (GLUCOPHAGE) 1,000 mg tabletIndications:type 2 diabetes mellitus Take 1 tablet (1,000 mg total) by mouth 2 (two) times a day with meals Stop Taking at Discharge 08/11/2024 pregabalin (LYRICA) 200 mg capsuleIndications:Diab etic Peripheral Neuropathy Take 1 capsule (200 mg total) by mouth 2 (two) times a day Stop Taking at Discharge 08/11/2024 insulin aspart U-100 (NovoLOG) 100 unit/mL (3 mL) insulin penIndications:type 2 diabetes mellitus Inject 6 Units under the skin daily with dinner Stop Taking at Discharge 08/11/2024 chlorhexidine (PERIDEX) 0.12 % solutionIndications:Pro phylaxis, Surgical Apply 15 mL to the mouth or throat 3 (three) times a day for 5 days Swish and rinse for at least 30 seconds . Do not rinse or drink for 1-2 hours after use. Stop Taking at Discharge 07/19/2024 08/11/2024 mupirocin (BACTROBAN) 2 % ointmentIndications:Pro phylaxis, Surgical Apply to each nostril 2 (two) times a day for 5 days Stop Taking at Discharge 07/19/2024 08/11/2024 naproxen (ALEVE) 220 mg tabletIndications:Pain Take 1 tablet (220 mg total) by mouth every 12 (twelve) hours as needed for headaches Stop Taking at Discharge 07/02/2023 08/11/2024 bumetanide (BUMEX) 1 mg tabletIndications:Edema Take 0.5 tablets (0.5 mg total) by mouth as needed (edema- SOB and leg swelling) Stop Taking at Discharge 06/07/2024 08/11/2024 ibuprofen (ADVIL,MOTRIN) 800 mg tabletIndications:Pain Take 1 tablet (800 mg total) by mouth every 6 (six) hours Stop Taking at Discharge 07/04/2024 08/11/2024 semaglutide (OZEMPIC) 1 mg/dose (4 mg/3 mL) pen injector injectionIndications:ty pe 2 diabetes mellitus Inject 1 mg under the skin every 7 days Wednesday Stop Taking at Discharge 05/01/2024 08/11/2024 atorvastatin (LIPITOR) 40 mg tabletIndications:hyper lipidemia Take 1.5 tablets (60 mg total) by mouth every evening Stop Taking at Discharge 06/07/2024 08/11/2024 sacubitriL-valsartan (ENTRESTO) 24-26 mg tabletIndications:chron ic heart failure Take 1 tablet by mouth 2 (two) times a day Stop Taking at Discharge 08/11/2024 carvediloL (COREG) 6.25 mg tabletIndications:Heart failure Take 0.5 tablets (3.125 mg total) by mouth 2 (two) times a day with meals Stop Taking at Discharge 08/11/2024 insulin glargine (LANTUS, SEMGLEE) 100 unit/mL subcutaneous syringeIndications:Diab etes Mellitus Inject 90 Units under the skin every morning Stop Taking at Discharge 08/11/2024 documented as of this encounter Active and Recently Administered Medications Times are shown in CDT. Scheduled Medication Order 08/09/2024 08/10/2024 08/11/2024 aspirin chewable tablet 81 mg 81 mg, oral, Daily, First dose (after last modification) on Wed07/26/24 at 0900 1004 (Given - Provider: Arabella Mancini RN) 1023 (Given - Provider: Nedra Ray RN) 0923 (Given - Provider: Nedra Ray RN) atorvastatin (LIPITOR) tablet 80 mg 80 mg, oral, Daily, First dose (after last modification) on Wed08/09/24 at 0900 1005 (Given - Provider: Arabella Mancini RN) 1023 (Given - Provider: Nedra Ray RN) 0923 (Given - Provider: Nedra Ray RN) carvediloL (COREG) tablet 3.125 mg 3.125 mg, oral, 2 times daily with meals (bkfst, dinner), First dose on Wed08/06/24 at 1800 1005 (Given - Provider: Arabella Mancini RN)1732 (Given - Provider: Arabella Mancini RN) 1023 (Given - Provider: Nedra Ray RN)1724 (Given - Provider: Nedra Ray RN) 0923 (Given - Provider: Nedra Ray RN) carvediloL (COREG) tablet 3.125 mg 3.125 mg, oral, 2 times daily with meals (bkfst, dinner), First dose on Wed08/17/24 at 1800 clopidogreL (PLAVIX) tablet 75 mg 75 mg, oral, Daily, First dose (after last modification) on Wed07/26/24 at 0900 1005 (Given - Provider: Arabella Mancini RN) 1023 (Given - Provider: Nedra Ray RN) 0923 (Given - Provider: Nedra Ray RN) DULoxetine DR (CYMBALTA) extended release capsule 60 mg 60 mg, oral, Nightly, First dose on Wed07/25/24 at 2100, Capsule may be opened and contents mixed with applesauce or apple juice ONLY. Do not crush or chew capsule 2112 (Given - Provider: Regino Soria RN) 2007 (Given - Provider: Leanna Krueger RN) insulin glargine (LANTUS, SEMGLEE) 100 unit/mL injection 35 Units (CANCELED) 35 Units, subcutaneous, Every morning, First dose (after last modification) on Wed08/06/24 at 0900, Do not mix with other insulins 1006 (Given - Provider: Arabella Mancini RN) 1024 (Not Given - Provider: Nedra Ray RN - Reason: See Provider Order) insulin lispro (HumaLOG, ADMELOG) 100 unit/mL injection 0-4 Units 0-4 Units, subcutaneous, Nightly, First dose on Wed08/10/24 at 2100, Blood glucose mg/dL: 199 or less: No insulin 200-249: add 1 unit 250-299: add 2 units 300-349: add 3 units and notify physician for adjustment of insulin orders. 350-399: add 4 units and notify physician for adjustment of insulin orders. Over 400: Notify physician for adjustment of insulin orders. Do NOT hold for NPO Status, Indications: Diabetes Mellitus 2007 (Not Given - Provider: Leanna Krueger RN - Reason: Order parameters not met) insulin lispro (HumaLOG, ADMELOG) 100 unit/mL injection 0-5 Units 0-5 Units, subcutaneous, 3 times daily with meals, First dose on Wed08/10/24 at 1800, Blood glucose mg/dL: 149 or less: No insulin 150-199: add 1 unit 200-249: add 2 units 250-299: add 3 units 300-349: add 4 units and notify physician for adjustment of insulin orders. 350-399: add 5 units and notify physician for adjustment of insulin orders. Over 400: Notify physician for adjustment of insulin orders. Do NOT hold for NPO Status, Indications: Diabetes Mellitus 1708 (Not Given - Provider: Nedra Ray RN - Reason: Order parameters not met - Comment: BS 108) 0832 (Not Given - Provider: Nedra Ray RN - Reason: Order parameters not met - Comment: BS [phone] (Due) isosorbide mononitrate ER (IMDUR) extended release tablet 15 mg 15 mg, oral, Daily, First dose on Wed07/27/24 at 0945, Tablets that are scored may be split, but do not crush, chew, dissolve, open or otherwise manipulate tablet/capsule. 0617 (Unheld by Provider - Provider: Bianka Gallagher NP)1005 (Given - Provider: Arabella Mancini, NAVIN) 1022 (Given - Provider: Nedra Ray RN) 0923 (Given - Provider: Nedra Ray RN) magnesium oxide (MAG-OX) tablet 800 mg 800 mg, oral, 2 times daily, First dose on Wed08/08/24 at 2100, 1 tablet = Magnesium oxide 400 mg = 241.3 mg elemental magnesium, Indications: hypomagnesemia 1005 (Given - Provider: Arabella Mancini RN)211 (Given - Provider: Regino Soria RN) 1023 (Given - Provider: Nedra Ray RN)2007 (Given - Provider: Leanna Krueger RN) 0923 (Given - Provider: Nedra Ray RN) methocarbamoL (ROBAXIN) tablet 500 mg (CANCELED) 500 mg, oral, 3 times daily, First dose (after last modification) on Wed07/31/24 at 0700 1006 (Given - Provider: Arabella Mancini RN)1732 (Not Given - Provider: Arabella Mancini RN - Reason: Patient/family refused)2112 (Given - Provider: Regino Soria RN) 1023 (Given - Provider: Nedra Ray RN)1520 (Not Given - Provider: Nedra Ray RN - Reason: Patient/family refused) pantoprazole DR (PROTONIX) extended release tablet 40 mg 40 mg, oral, Daily, First dose on Wed07/25/24 at 0900, Do not crush, chew, cut, dissolve, open or otherwise manipulate tablet/capsule., Indications: Treatment of Non-Bleeding Gastric Disorder 1005 (Given - Provider: Arbaella Mancini RN) 1023 (Given - Provider: Nedra Ray RN) 0923 (Given - Provider: Nedra Ray RN) potassium chloride ER (KLOR-CON) extended release tablet 40 mEq (COMPLETED) 40 mEq, oral, Once, On Wed08/09/24 at 0330, For 1 dose, Tablets should not be crushed, chewed, dissolved, or otherwise manipulated. Capsules may be opened and sprinkled on a spoonful of applesauce or pudding, but the contents of the capsule should not be crushed or chewed. 0310 (Given - Provider: Regino Soria RN) potassium chloride ER (KLOR-CON) extended release tablet 40 mEq (CANCELED) 40 mEq, oral, Daily, First dose (after last modification) on Wed08/09/24 at 0900, Tablets should not be crushed, chewed, dissolved, or otherwise manipulated. Capsules may be opened and sprinkled on a spoonful of applesauce or pudding, but the contents of the capsule should not be crushed or chewed. 1005 (Given - Provider: Arabella Mancini, NAVIN) 1023 (Given - Provider: Nedra Ray, RN) pregabalin (LYRICA) capsule 100 mg 100 mg, oral, 2 times daily, First dose (after last modification) on Wed08/11/24 at 2100 pregabalin (LYRICA) capsule 50 mg (CANCELED) 50 mg, oral, 2 times daily, First dose on Wed08/10/24 at 2100 2007 (Given - Provider: Leanna Krueger, RN) 09 (Given - Provider: Nedra Ray, RN) QUEtiapine (SEROquel) tablet 50 mg (CANCELED) 50 mg, oral, Nightly, First dose (after last modification) on Wed08/07/24 at 2100 2113 (Given - Provider: Regino Soria, NAVIN) PRN Medication Order 08/09/2024 08/10/2024 08/11/2024 acetaminophen (TYLENOL) tablet 650 mg 650 mg, oral, Every 6 hours PRN, fever, Starting on Wed08/08/24 at 0600, Indications: Pain 1005 (Return to Cabinet - Provider: Arabella Mancini RN) 0438 (Given - Provider: Leanna Krueger, NAVIN) dextrose (D10W) 10% bolus 250 mL(Linked Group 1) 250 mL, intravenous, at 1,000 mL/hr, Administer over 15 Minutes, Every 15 min PRN, blood glucose less than 70 mg/dL and UNABLE to swallow/take PO glucose/juice., Starting on Wed08/10/24 at 1509, After treatment for hypoglycemia, recheck BG followed by treatment every 15 minutes until the BG is greater than 100 mg/dL. Then check BG 1 hour post treatment. If BG is less than 100 mg/dL, repeat Q15 minute BG checks and treatment. Call MD for each episode of hypoglycemia., Indications: hypoglycemic disorder dextrose gel in packet 15 g(Linked Group 1) 15 g, oral, Every 15 min PRN, low blood sugar, blood glucose less than 70 mg/dL, Starting on Wed08/10/24 at 1509, If patient is alert and able to eat/drink, give 15 gm glucose or one juice (4 fluid ounces) NOT ORANGE JUICE. After treatment for hypoglycemia, recheck BG followed by treatment every 15 minutes until the BG is greater than 100 mg/dL. Then check BG 1 hour post-treatment. If BG is less than 100 mg/dL, repeat Q15 minute BG checks and treatment. Call MD for each episode of hypoglycemia., Indications: hypoglycemic disorder glucagon injection 1 mg 1 mg, intramuscular, Every 30 min PRN, low blood sugar, blood glucose less than 70 mg/dL AND no IV access AND unable to take PO glucose/juice., Starting on Ann-Marie 08/10/24 at 1509, After Glucagon is administered, position patient on side if possible to avoid aspiration. Obtain IV access. Follow glucagon treatment with glucose treatment or IV dextrose. After treatment for hypoglycemia, recheck BG followed by treatment every 15 minutes until the BG is greater than 100 mg/dL. Then check BG 1 hour post treatment. If BG is less than 100 mg/dL, repeat Q15 minute BG checks and treatment. Call MD for each episode of hypoglycemia. Reconstitute 1 mg vial with 1 mL SWFI. Use immediately following reconstitution. ondansetron (ZOFRAN) injection 4 mg 4 mg, intravenous, Administer over 2 Minutes, Every 6 hours PRN, nausea, vomiting, Starting on Wed07/24/24 at 1610, Administer no sooner than 6 hours after last dose. Linked Groups Order Group 1: dextrose gel in packet 15 gJump to med 15 g, oral, Every 15 min PRN, low blood sugar, blood glucose less than 70 mg/dL, Starting on Ann-Marie 08/10/24 at 1509, If patient is alert and able to eat/drink, give 15 gm glucose or one juice (4 fluid ounces) NOT ORANGE JUICE. After treatment for hypoglycemia, recheck BG followed by treatment every 15 minutes until the BG is greater than 100 mg/dL. Then check BG 1 hour post-treatment. If BG is less than 100 mg/dL, repeat Q15 minute BG checks and treatment. Call MD for each episode of hypoglycemia., Indications: hypoglycemic disorder Or dextrose (D10W) 10% bolus 250 mLJump to med 250 mL, intravenous, at 1,000 mL/hr, Administer over 15 Minutes, Every 15 min PRN, blood glucose less than 70 mg/dL and UNABLE to swallow/take PO glucose/juice., Starting on Ann-Marie 08/10/24 at 1509, After treatment for hypoglycemia, recheck BG followed by treatment every 15 minutes until the BG is greater than 100 mg/dL. Then check BG 1 hour post treatment. If BG is less than 100 mg/dL, repeat Q15 minute BG checks and treatment. Call MD for each episode of hypoglycemia., Indications: hypoglycemic disorder documented in this encounter Orders Medications Ordered That Manuel ht Not Have Been Administered Count Last Ordered Date First Ordered Date carvediloL (COREG) tablet 3.125 mg 1 2023 pregabalin (LYRICA) capsule 100 mg 1 2023 dextrose (D10W) 10% bolus 250 mL 4 08/10/20 24 07/24/2024 dextrose gel in packet 15 g 4 08/10/2024 07/24/2024 glucagon injection 1 mg 4 08/10/202407/09 insulin glargine (LANTUS, SE MGLEE) 100 unit/mL injection 15 Units 1 08/10/2024 insulin lispro (HumaLOG, ADM ELOG) 100 unit/mL injection 0-4 Units 1 08/10/2024 insulin lispro (HumaLOG, ADM ELOG) 100 unit/mL injection 0-5 Units 1 08/10/2024 QUEtiapine (SEROquel) tablet 25 mg 1 2023 acetaminophen (TYLENOL) tablet 650 mg 1 ioversoL (OPTIRAY 320) injection 2 08/04/20 lidocaine (XYLOCAINE) 10 mg/ mL (1 %) injection 1 08/04/2024 vancomycin (VANCOCIN) 1,000 mg in sodium chloride 0.9% 1,000 mL irrigation solution 1 08/04/2024 bisacodyL (DULCOLAX) suppository 10 mg 1 senna (SENOKOT) tablet 1 tablet 1 potassium chloride ER (KLOR- CON) extended release tablet 40 mEq 1 08/02/2024 potassium chloride (KLOR-CON ) packet 40 mEq 1 08/01/2024 lidocaine (PF) (XYLOCAINE) 1 0 mg/mL (1 %) preservative free injection - ADS Override Pull 1 07/31/2024 potassium chloride (KLOR-CON ) packet 20 mEq 1 07/31/2024 mineral oil (FLEET MINERAL O IL) enema 133 mL 07/29/2024 epoprostenol (VELETRI) 20 mc g/ml in 0.9% sodium chloride inhalation solution 2 07/28/202407/09 EPINEPHrine in 0.9% sodium c hloride 5,000 mcg/250 mL (20 mcg/mL) infusion (premix) 2 07/25/2024 furosemide (LASIX) 10 mg/mL injection 80 mg 07/25/2024 norepinephrine in dextrose 5 % (LEVOPHED) 8,000 mcg/250 mL (32 mcg/mL) infusion (premix) 07/25/2024 Carrier Fluids for Secondary Infusion - 0.9% Sodium Chloride 07/24/2024 ceFAZolin (ANCEF) 2,000 mg/2 0 mL in sterile water (premix) 2,000 mg 07/24/2024 famotidine (PEPCID) 20 mg/50 mL in sodium chloride 0.9% (premix) 20 mg 07/24/2024 fentaNYL (SUBLIMAZE) preserv ative free injection 50 mcg 07/24/2024 HYDROmorphone (DILAUDID) injection 0.5 mg 07/24/2024 insulin lispro (HumaLOG, ADM ELOG) 100 unit/mL injection 2-7 Units 07/24/2024 insulin regular bolus from bag 4-6 Units 07/24/2024 lidocaine (XYLOCAINE) 10 mg/ mL (1 %) injection 100 mg 07/24/2024 metoprolol tartrate immediat e release capsule 6.25 mg 07/24/2024 ondansetron (ZOFRAN) injection 4 mg 07/24 oxyCODONE (ROXICODONE) tablet 5 mg 2023 oxymetazoline (AFRIN) 0.05 % nasal spray 1 spray 07/24/2024 papaverine injection 07/24/2024 senna 1.76 mg/mL syrup 8.8 mg 1 07/24/2024 sodium chloride 0.9% flush 0.5-20 mL 07/09 sodium chloride 0.9% irrigation 1 sodium chloride 0.9% solution 1 07/24/2024 sterile water irrigation 1 07/24/2024 vancomycin (VANCOCIN) solution 1 07/24/2024 vancomycin 1,000 mg/50 mL in sterile water (premix) 1,000 mg 1 07/24/2024 vancomycin 1500 mg/515 mL in sodium chloride 0.9% (premix) 1,500 mg 1 07/24/2024 Lab Orders Without Results Count Last Ordered D ate First Ordered Date POCT GLUCOSE DEVICE 161 08/11/2024 07/25/20 24 POTASSIUM, WHOLE BLOOD 1 07/25/2024 Imaging Orders Without Results Count Last Order ed Date First Ordered Date PEP THERAPY/AIRWAY CLEARANCE 21 08/10/2024 08/03/2024 EKG Orders Without Results Count Last Ordered D ate First Ordered Date ECG 12-LEAD 1 07/31/2024 Diet Count Last Ordered Date First Orde red Date ADULT DISCHARGE DIET 1 08/11/2024 Nursing Count Last Ordered Date First Orde red Date DISCHARGE ACTIVITY 4 08/11/2024 DISCHARGE CALL PROVIDER 4 08/11/2024 DISCHARGE DRESSING 1 08/11/2024 DISCHARGE INSTRUCTIONS 3 08/11/2024 FOLLOW UP WITH ESTABLISHED PROVIDER 1 08/11 WEIGHT RESTRICTIONS 1 08/11/2024 TELEMETRY MONITORING 1 08/04/2024 NURSING COMMUNICATION 1 08/02/2024 Consult Count Last Ordered Date First Orde red Date IP CONSULT TO ELECTROPHYSIOLOGY 1 IP CONSULT TO NUTRITION SERVICES 1 07/31/20 24 Admission Count Last Ordered Date First Orde red Date ADMIT TO INPATIENT 2 07/24/2024 Transfer Count Last Ordered Date First Orde red Date TRANSFER PATIENT TO NEW UNIT 2 08/04/2024 07/24/2024 Discharge Count Last Ordered Date First Orde red Date DISCHARGE PATIENT 1 08/11/2024 CORE MEASURES Count Last Ordered Date First Ord ered Date REASON FOR NO VTE PROPHYLAXI S - HOSPITAL ADMISSION - MEDICATIONS 1 08/04/2024 Case Request Count Last Ordered Date First Orde red Date CASE REQUEST EP LAB 1 08/02/2024 ADT Patient Update Count Last Ordered Date Firs t Ordered Date PROVIDER TREATMENT TEAM 1 07/24/2024 documented in this encounter Care Teams Javascript Front End Developer Relationship Specialty Start Date End Date Juan Retana MD [id number] [facility] [address] [place], [place] [phone] PCP - General Internal Medicine 07/05/24 [facility], Alverto Gutierrez [address] [place] [address] Referring Physician Cardiology 07/05/24 Leonor Quan MD [id number] [place] [address] Consulting Physician General Surgery 08/11/24 documented as of this encounter
--- OUTSIDE RECORDS SUMMARY | 2024-11-17 04:28 | XMS_ITS | Encounter Summary ---
Author Organization [facility] Healthcare Address [address] [place] [address] Care Team Providers Care Chief Arson Division Name Role Phone Juan Retana MD Primary Care Provider [phone] [facility], Alverto Gutierrez Unavailable Reason for Visit [...] Expiration Date Visits Re quested Visits Authorized [id number] 1 1 Encounter Details Date Type Department Care Team (Late st Contact Info) Description 08/04/2024 7:30 AM CDT - 08/04/2024 12:30 PM CDT Surgery [facility] Electrophysiology Lab [address] [place] [address] Lucy Meyer MD [address] [address] INSERT/REPLACE IMPLANTABLE CARDIOVERTER-DEFIBRI LLATOR (ICD) DUAL CHAMBER SYSTEM [address]1699 Surgery Details Date/Time Status Location OR Service Patient Class Case Class Case Type Trauma Case? 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 Gender Identity Not on file Sexual Orientation Not on file documented as of this encounter Last Filed Vital Signs Vital Sign Reading Time Taken Comments Blood Pressure 105/52 08/04/2024 12:30 PM CDT Pulse 88 08/04/2024 12:30 PM CDT Temperature 37 ??C (98.6 ??F) 08/04/2024 11:00 AM CDT Respiratory Rate 19 08/04/2024 12:30 PM CDT Oxygen Saturation 98% 08/04/2024 12:30 PM CDT Inhaled Oxygen Concentration - - Weight 93.3 kg (205 lb 11 oz) 08/03/2024 5:00 AM CDT Height 177.8 cm (5' 10 ) 07/25/2024 5:00 AM CDT Body Mass Index 31.21 07/25/2024 5:00 AM CDT documented in this encounter Discharge Summaries * Cindy Pacheco NP - 08/11/2024 11:29 AM CDT Inpatient Discharge Summary BRIEF OVERVIEW Admitting Provider: Paediatrician MD Bird Discharge Provider: Leonor Quan MD Primary Care Physician at Discharge: Juan Retana MD [phone] Admission Date: 07/24/2024 Discharge Date: 08/11/2024 Admission Location: [facility] Primary Discharge Diagnosis: CAD - 07/24/24: CABG x 3 (BURGESS to LAD, left radial to OM, SVG to PDA and sternal plating. CHB - 08/04/24: PPM implantation (Medtronic IT DESKTOP SUPPORT TECHNICIAN-D with EP (DDD 60-100). Secondary Discharge Diagnosis: Active Problems: Coronary artery disease due to calcified coronary lesion Bradycardia Complete heart block (CMS/HCC) (HCC) Junctional escape rhythm DM2 (diabetes mellitus, type 2) (HCC) Resolved Problems: No resolved hospital problems. DETAILS [...] RCA subtotal occlusion. He was referred to [facility] for surgical management. Hospital Course: Mr. Fink [...] lab on 08/04/24 for PPM implantation (Medtronic IT DESKTOP SUPPORT TECHNICIAN-D with EP (DDD 60-100). Post pacemaker implantation, [...] is deemed ready for discharge to the [facility] for further rehabilitation. See post op TTE [...] for pain. Notify the physician office at [phone] immediately if you develop abrupt pain or swelling. If you feel there is an urgent matter, call 911 or go to the emergency room. Call the office at [phone] with any routine questions or concerns. If you are unable to reach your doctor please call [facility] information assurance analyst at [phone]. He or she will contact the physician [...] INSERT/REPLACE IMPLANTABLE CARDIOVERTER-DEFIBRILLATOR (ICD) DUAL CHAMBER SYSTEM 92597 INSERT LV LEAD W PACEMAKER (PPM) OR IMPLANTABLE CARDIOVERTER-DEFIBRILLATOR (ICD) PLACEMENT (+) 05261 Discharge Details Physical Exam at Discharge: Discharge [...] Recent Lab Results: Recent Labs Lab Units 08/11/24 0810 08/10/24 2233 08/10/24200208/10/24 0808/09/24 2151 08/09/24 0808/08/24 2202 SODIUM mmol/L -- 135 -- -- 135 [...] interval not displayed. Recent Labs Lab Units 08/10/24 2233 08/09/24 2151 08/08/24 2202 WBC K/cumm 5.9 6.5 8.0 HEMOGLOBIN g/dL [...] Relationship: Consulting Physician Zara NEVES MSC [id number] [place] [address] Next Steps: Follow up Comments: Dr. Quan (or a Cardiac Surgery SUPERVISOR PYROTECHNIC LOADING) will see you for follow up in approximately 4 weeks in their office at the [facility] ([address] [place] [address], [address], [place] [address]). Please call [phone] for questions/concerns or to change your appointment. [...] for pain. Notify the physician office at [phone] immediately if you develop abrupt pain or swelling. If you feel there is an urgent matter, call 911 or go to the emergency room. Call the office at [phone] with any routine questions or concerns. If you are unable to reach your doctor please call [facility] information assurance analyst at [phone]. He or she will contact the physician [...] 2 (two) times a day 08/11/2024 5 acetaminophen (TYLENOL) 325 mg tabletIndications :Pain Take [...] for injection Inject under the skin 11/18/2023 4 insulin lispro (HumaLOG) 100 unit/mL pen for [...] 4 pen needle, diabetic 32 gauge x /32 needle Use as directed 3 times a day. 08/11/2024 4 semaglutide (OZEMPIC) 1 mg/dose (4 mg/3 mL) pen injector injection Inject under the skin 05/01/2024 documented as of this encounter Ordered Prescriptions Prescription Sig Dispense Quantity Refills Last Filled Start Date End Date carvediloL (COREG) 3.125 mg tablet Take 1 tablet (3.125 mg total) by mouth 2 (two) times a day with meals 08/17/2024 magnesium oxide (MAG-OX) 400 mg (241.3 mg elemental magnesium) tablet Take 2 tablets (800 mg total) by mouth 2 (two) times a day 08/11/2024 isosorbide mononitrate ER (IMDUR) 30 mg 24 hr tablet Take 0.5 tablets (15 mg total) by mouth daily 08/12/2024 clopidogreL (PLAVIX) 75 mg tablet Take 1 tablet (75 mg total) by mouth daily 08/12/2024 pregabalin (LYRICA) 100 mg capsule Take 1 capsule (100 mg total) by mouth 2 (two) times a day 08/11/2024 atorvastatin (LIPITOR) 80 mg tablet Take 1 [...] (six) hours as needed for fever 08/11/2024 4 documented in this encounter Discharge Disposition Disposition Code Departure Means Destination Comment s Discharge to an IP Rehab facility Ambulance/EMS documented in this encounter Progress Notes * Viry Tabor RN - 08/11/2024 11:50 AM CDT 07/25/24 0931 Discharge Summary Discharge Disposition Acute Rehab Specify Facility [facility] Contact Number [phone], ext. [phone] Facility Attending Name [facility] Facility Attending Contact Number [phone], [phone]. [phone] Discharge Records Transfer Form Completed;Chart Copied Recommended Discharge Level of Care Acute Rehab Actual Discharge Level of Care Acute Rehab Does Actual Level of Care Match Care Team Recommendation? Yes Post Acute Care Plan Home Care Services N/A OP Services N/A DME N/A Post Acute Care Facility Yes Referral Status Accepted Accepted Post Acute Care Location and Contact [facility] Accepted Post Acute Care Discharge Additional Assistance Does the patient need discharge transport arranged? Yes Type of Transportation Ambulance/EMS Has discharge transport been arranged? Yes Details of Transportation [facility] per OR D/C Transport Anticipated Date 08/11/24 D/C Transport [...] at this time. [facility] CM spoke with the patient/family, admissions, medical team, and RN regardingdischarge planning, and all are agreeable to discharge. Post-acute care transfer packet completed an d will be sent with the patient. RN provided with report number to nurses station. Room # [address] [place] [address] provided by facility. Mode of transport has [...] History: adjusting insulins today. Working on placement (OR) OBJECTIVE Current Facility-Administered Medications: acetaminophen (TYLENOL) tablet [...] Nacho, Va Medeiros NP, 3.125 mg at 08/10/24 1023 clopidogreL (PLAVIX) tablet 75 mg, 75 mg, oral, Daily, Asya Brandon MD, 75 mg at 08/10/24 1023 dextrose gel in packet 15 g, 15 g, oral, Q15 Min PRN OR dextrose (D10W) 10% bolus 250 mL, 250 mL, intravenous, Q15 Min PRN, Cindy Pacheco NP DULoxetine DR (CYMBALTA) extended release capsule 60 mg, 60 mg, oral, Nightly, Asya Brandon MD, 60 mg at 08/09/242112 glucagon injection 1 mg, 1 mg, intramuscular, [...] PRN, Kathrin Humphrey NP, 8 mg at Vitals: 24hr Min/Max: Temp Min: 36.3 ??C [...] mg/dL ASSESSMENT/PLAN DM2 (diabetes mellitus, type 2) ([facility]) Assessment & Plan - Home regimen: Lantus 90 units - 07/14 A1C 7.5 - Lantus 35 units + SSI with low glucoses, will hold lantus and use SSI only for now Restart Lyrica for neuropathy (200 BID at home) Complete heart block (CMS/HCC) ([facility]) Assessment & Plan EP consulted [...] CABG x3 and Sternal Plating (08/03). 07/31: TUNNEL MINER eval regular texture and thin liquids, order [...] glucagon ondansetron ramelteon Recent Labs Lab Units 08/09/24215008/08/2408/07/24 2228 SODIUM mmol/L 135 133* 135 POTASSIUM PLASMA mmol/L 4.3 3.5 3.4 CHLORIDE mmol/L 101 99 99 CO2 mmol/L 24 24 27 BUN SERUM mg/dL 23 26* 24 CREATININE mg/dL 0.91 0.97 1.01 [id number] mL/min/1.73 m2 90 83 79 CALCIUM mg/dL 8.3* 8.0* 8.3* PHOSPHORUS PLASMA mg/dL -- -- 2.8 MAGNESIUM mg/dL 2.1 1.8 1.8 Recent Labs Lab Units 08/10/24 1004 08/10/24 0813 08/09/24 2151 08/09/24 2133 08/09/24 1609 08/09/24 1248 08/09/24 1047 [...] of Weight Used for Estimated Protein : [place] Total Fluid Estimated Needs: 1882.5 Fluid Needs Based on : 25 ml/kg Type of Weight Used for Estimated Fluid Needs: [place] Dietary Orders (From admission, onward) Start Ordered 08/08/242015 Adult Diet Restricted; Mechanical Soft; Consistent Carbohydrate; Regular Liquid Diet effective now Question Answer Comment ([facility]) Diet type Restricted Modified Consistency: Mechanical Soft [...] Weight changes Rehana Stallworth MS, RD, LD [facility] [phone] On-call/weekend: [phone] * Cami Thakur PTA - 08/09/2024 2:40 [...] treatment team and contact the PT or LAWNMOWER MECHANIC currently assigned to this patient. If a physical therapy clinician is not assigned to this patient, please call [phone]. 08/09/24 1440 PT Last Visit Session Type [...] returned to room via w/c to use [facility] Stairs Stairs No Basic Mobility - 6 [...] complaint of none. Interval History: waiting on va bed OBJECTIVE Current Facility-Administered Medications: acetaminophen (TYLENOL) [...] Daily, Bianka Gallagher NP, 15 mg at 08/09/241004 magnesium oxide (MAG-OX) tablet 800 mg, 800 mg, oral, BID, Kathrin Humphrey NP, 800 mg at 08/09/241004 methocarbamoL (ROBAXIN) tablet 500 mg, 500 mg, oral, TID, Asya Brandon MD, 500 mg at 08/09/241005 ondansetron (ZOFRAN) injection 4 mg, 4 mg, intravenous, Q6H PRN, Asya Brandon MD pantoprazole (PROTONIX) extended release tablet 40 mg, 40 mg, oral, Daily, Asya Brandon MD, 40 mgat 08/09/241004 potassium chloride ER (KLOR-CON) extended release tablet 40 mEq, 40 mEq, oral, Daily, Kathrin Humphrey NP, 40 mEq at 08/09/241004 QUEtiapine (SEROquel) tablet 50 mg, 50 mg, oral, Nightly, Nacho, Va Medeiros NP, 50 mg at 08/08/242113 ramelteon (ROZEREM) tablet 8 mg, 8 mg, oral, Nightly PRN, Kathrin Humphrey NP, 8 mg at [Held by Provider] sacubitriL-valsartan (ENTRESTO) 24-26 mg [...] mg/dL ASSESSMENT/PLAN DM2 (diabetes mellitus, type 2) ([facility]) Assessment & Plan - Home regimen: Lantus 90 units - 9/ A1C 7.5 - Lantus 35 units + SSI Complete heart block (CMS/HCC) ([facility]) Assessment & Plan EP consulted [...] Daily, Asya Brandon MD, 75 mg at 08/08/24929 dextrose gel in packet 15 g, 15 [...] Debra, Mayi Fritz NP, 35 Units at 08/08/2430 insulin lispro (HumaLOG, ADMELOG) 100 unit/mL injection 0-10 Units, 0-10 Units, subcutaneous, TID with meals, Asya Brandon MD, 2 Units at 08/06/24 172 insulin lispro (HumaLOG, ADMELOG) 100 unit/mL injection 0-5 Units, 0-5 Units, subcutaneous, Nightly, Asya Brandon MD, 1 Units at 07/31/242025 isosorbide mononitrate ER (IMDUR) extended release tablet 15 mg, 15 mg, oral, Daily, Asya Brandon MD, 15 mg at 08/08/24928 methocarbamoL (ROBAXIN) tablet 500 mg, 500 mg, oral, TID, Asya Brandon MD, 500 mg at 08/08/24 0752 ondansetron (ZOFRAN) injection 4 mg, 4 mg, intravenous, Q6H PRN, Asya Brandon MD pantoprazole (PROTONIX) extended release tablet 40 mg, 40 mg, oral, Daily, Asya Brandon MD, 40 mgat 08/08/2430 QUEtiapine (SEROquel) tablet 50 mg, 50 mg, oral, Nightly, Nacho, Va Medeiros NP, 50 mg at 08/07/242058 sacubitriL-valsartan (ENTRESTO) 24-26 mg tablet 1 tablet, 1 tablet, oral, BID, Nacho, Va Medeiros, JUSTYN, 1 tablet at 08/07/242058 Vitals: 24hr Min/Max: [...] mg/dL ASSESSMENT/PLAN DM2 (diabetes mellitus, type 2) ([facility]) Assessment & Plan - Home regimen: Lantus 90 units - 9/6 A1C 7.5 - Lantus 35 units + SSI Complete heart block (CMS/HCC) ([facility]) Assessment & Plan EP consulted [...] not assigned to this patient, please call [phone]. 08/08/24 1031 General Chart Reviewed Yes Session [...] Single point cane Prior Function Level of [place] Independent with ADLs;Independent functional transfers;Independent with ambulation;Needs [...] CABG x3 and Sternal Plating (08/03). 07/31: TUNNEL MINER eval regular texture and thin liquids, order [...] glucagon ondansetron oxyCODONE Recent Labs Lab Units 08/06/24203808/05/24214008/04/24 2128 SODIUM mmol/L 135 136 139 POTASSIUM PLASMA mmol/L 3.3 3.0* 4.5 CHLORIDE mmol/L 96* 99 101 CO2 mmol/L 27 28 25 BUN SERUM mg/dL 25 30* 33* CREATININE mg/dL 1.01 1.09 1.10 [id number] mL/min/1.73 m2 79 72 71 CALCIUM mg/dL 8.5 8.5 8.5 PHOSPHORUS PLASMA mg/dL 3.3 3.6 4.4 MAGNESIUM mg/dL 2.0 2.0 2.1 Recent Labs Lab Units 08/07/24 1153 08/07/24 0745 08/06/24203808/06/24202108/06/24 16308/06/24 1215 08/06/24 0751 GLUCOSE mg/dL -- -- [...] of Weight Used for Estimated Protein : [place] Total Fluid Estimated Needs: 1882.5 Fluid Needs Based on : 25 ml/kg Type of Weight Used for Estimated Fluid Needs: [place] Dietary Orders (From admission, onward) Start Ordered 08/07/24 1700 Oral Nutrition Supplements ([facility]) Select Supplement: Glucerna Shake - [place] With Breakfast and Dinner Question: ([facility]) Select Supplement: Answer: Glucerna Shake - [place] 08/07/24 1240 08/04/24 1658 Adult Diet Restricted; Mechanical Soft; Regular Liquid Diet effective now Question Answer Comment ([facility]) Diet type Restricted Modified Consistency: Mechanical Soft [...] Weight changes Rehana Stallworth MS, RD, LD [facility] [phone] On-call/weekend: [phone] * Va Griffith NP - 08/07/2024 12:19 PM CDT Cardiac Surgery Daily Progress 07/24 CABG x 3 08/04 IT DESKTOP SUPPORT TECHNICIAN-D placement SUBJECTIVE Chief complaint of none. Interval History: States he is eating a little better every day. Started coreg yesterday, toleratedwell. Will plan to add Entresto today or tomorrow. Discharge to OR rehab when bed available. OBJECTIVE Current Facility-Administered Medications: acetaminophen (TYLENOL) tablet 1,000 mg, 1,000 mg, oral, Q6H [facility], Dwain Torres MD, 1,000mg at 08/07/24 1218 aspirin chewable tablet 81 mg, 81 mg, oral, Daily, Asya Brandon MD, 81 mg at 08/07/24 0857 atorvastatin (LIPITOR) tablet 40 mg, 40 mg, oral, Daily, Asya Brandon MD, 40 mg at 08/07/24 0859 carvediloL (COREG) tablet 3.125 mg, 3.125 mg, oral, BID with meals (bkfst, dinner), Nacho, Va Medeiros NP, 3.125 mg at 08/07/24 08 clopidogreL (PLAVIX) tablet 75 mg, 75 mg, oral, Daily, Asya Brandon MD, 75 mg at 08/07/24 08 dextrose gel in packet 15 g, [...] Debra, Mayi Fritz NP, 35 Units at 08/07/24 0859 insulin [...] Asya Brandon MD, 15 mg at 08/07/24 08 methocarbamoL (ROBAXIN) tablet 500 mg, 500 mg, oral, TID, Asya Brandon MD, 500 mg at 08/07/24 08 ondansetron (ZOFRAN) injection 4 mg, 4 mg, [...] mg/dL ASSESSMENT/PLAN DM2 (diabetes mellitus, type 2) ([facility]) Assessment & Plan - Home regimen: Lantus 90 units - 07/14 A1C 7.5 - Lantus 35 units + SSI Complete heart block (CMS/HCC) ([facility]) Assessment & Plan EP consulted [...] Daily Progress 07/24 CABG x 3 08/04 IT DESKTOP SUPPORT TECHNICIAN-D placement 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 Interval [...] Asya Brandon MD, 81 mg at 08/06/24 09 atorvastatin (LIPITOR) tablet 40 mg, 40 mg, oral, Daily, Asya Brandon MD, 40 mg at 08/06/24939 clopidogreL (PLAVIX) tablet 75 mg, 75 mg, oral, Daily, Asya Brandon MD, 75 mg at 08/06/2440 dextrose gel in packet 15 g, 15 g, oral, Q15 Min PRN OR dextrose (D10W) 10% bolus 250 mL, 250 mL, intravenous, Q15 Min PRN, Asya Brandon MD DULoxetine (CYMBALTA) extended release capsule 60 mg, 60 mg, oral, Nightly, Asya Brandon MD, 60 mg at 08/05/242132 glucagon injection 1 mg, 1 mg, intramuscular, Q30 Min PRN, Asya Brandon MD insulin glargine (LANTUS, SEMGLEE) 100 unit/mL injection 35 Units, 35 Units, subcutaneous, DAVINA, Mayi Richardson, JUSTYN, 35 Units at 08/06/24939 insulin lispro (HumaLOG, ADMELOG) 100 unit/mL injection 0-10 Units, 0-10 Units, subcutaneous, TID with meals, Asya Brandon MD, 2 Units at 08/05/24 172 insulin lispro (HumaLOG, ADMELOG) 100 unit/mL injection 0-5 Units, 0-5 Units, subcutaneous, Nightly, Asya Brandon MD, 1 Units at 07/31/242025 isosorbide mononitrate ER (IMDUR) extended release tablet 15 mg, 15 mg, oral, Daily, Asya Brandon MD, 15 mg at 08/06/24939 methocarbamoL (ROBAXIN) tablet 500 mg, 500 mg, oral, TID, Asya Brandon MD, 500 mg at 08/06/24939 ondansetron (ZOFRAN) injection 4 mg, 4 mg, [...] Nightly, Asya Brandon MD, 100 mg at 08/05/24 2132 Vitals: 24hr Min/Max: Temp Min: 36.5 ??C (97.7 ??F) Max: 36.9 ??C (98.4 ??F) Pulse Min: 71 Max: 80 BP Min: 108/58 Max: 126/63 Resp Min: 18 Max: 21 SpO2 Min: 95 % Max: 99 % Most Recent : Vitals: 08/06/24 0828 BP: 125/70 Pulse: 80 Resp: Temp: SpO2: [...] mmol/L ASSESSMENT/PLAN DM2 (diabetes mellitus, type 2) ([facility]) Assessment & Plan - Home regimen: Lantus 90 units - 07/14 A1C 7.5 - Lantus 35 units + SSI Complete heart block (CMS/HCC) ([facility]) Assessment & Plan EP consulted [...] treatment team and contact the PT or LAWNMOWER MECHANIC currently assigned to this patient. If a physical therapy clinician is not assigned to this patient, please call [phone]. 08/06/24 0756 PT Last Visit Session Type [...] with mobility Activity Tolerance Activity Tolerance Comments prettytony franco Pain Assessment Pain Assessment 0-10 Pain Score [...] improve independence with functional mobility. * Mayi Richardson, SUPERVISOR PYROTECHNIC LOADING - 08/05/2024 4:05 PM CDT Cardiac Surgery Daily Progress 1 Day Post-Op SUBJECTIVE Chief complaint of no new complaints Interval History: DC temp pacing wires OBJECTIVE Current Facility-Administered Medications: acetaminophen (TYLENOL) tablet 1,000 mg, 1,000 mg, oral, Q6H [facility], Dwain Torres MD, 1,000mg at 08/05/24 1218 aspirin chewable tablet 81 mg, 81 mg, oral, Daily, Asya Brandon MD, 81 mg at 08/05/24 0912 atorvastatin (LIPITOR) tablet 40 mg, 40 mg, oral, Daily, Asya Brandon MD, 40 mg at 08/05/24 0913 clopidogreL (PLAVIX) tablet 75 mg, 75 mg, [...] 35 Units, subcutaneous, DAVINA, Debra, Mayi Fritz NP insulin lispro (HumaLOG, ADMELOG) 100 unit/mL injection 0-10 Units, 0-10 Units, subcutaneous, TID with meals, Asya Brandon MD, 2 Units at 08/03/246 insulin lispro (HumaLOG, ADMELOG) 100 unit/mL injection 0-5 Units, 0-5 Units, subcutaneous, Nightly, Asya Brandon MD, 1 Units at 07/31/242025 isosorbide mononitrate ER (IMDUR) extended release tablet 15 mg, 15 mg, oral, Daily, Asya Brandon MD, 15 mg at 08/05/24912 methocarbamoL (ROBAXIN) tablet 500 mg, 500 mg, oral, TID, Asya Brandon MD, 500 mg at 08/05/24 151 ondansetron (ZOFRAN) injection 4 mg, 4 mg, intravenous, Q6H PRN, Asya Brandon MD oxyCODONE (ROXICODONE) tablet 5 mg, 5 mg, oral, Q4H PRN, Asya Brandon MD, 5 mg at 08/05/24 0645 pantoprazole (PROTONIX) extended release tablet 40 mg, 40 mg, oral, Daily, Asya Brandon MD, 40 mgat 08/05/24912 QUEtiapine (SEROquel) tablet 100 mg, 100 mg, oral, Nightly, Asya Brandon MD, 100 mg at 09/27/24 2118 Vitals: 24hr Min/Max: Temp Min: 36.3 [...] wire removal, bedrest until 1620.) * Leonor Fitch, OT - 08/04/2024 10:13 AM CDT 08/04/24 1013 General OT Missed Visit Reason Procedure/testing/appointment (Off the floor for PPM/ICD placement. OT will continue to follow.) * Viry Soliman, PT - 08/04/2024 8:22 AM CDT Physical Therapy 08/04/24 0822 General PT Missed Visit Reason Procedure/testing/appointment (GIBRAN for PPM/ICD.) Recommendation/Plan PT - Next Appointment 08/05/24 * Shantal Elizabeth, SUPERVISOR PYROTECHNIC LOADING - 08/04/2024 7:15 AM CDTAssociated Order(s): Critical [...] 2 and b/l chest tubes. Changed from BLOCK HACKER to Epi. 07/25: Inhaled Veletri added for worsening RV dysfunction. 07/26: Unable to wean Veletri d/t increasing PA pressures, Bumex gtt 07/27: Veletri wean, epi at 0.05 07/28: Veletri weaned off 07/29: Epi 0.02, chest/med tubes removed 07/29: Epi wean, bumex gtt dc'd, diamox x3 07/30: Epi off 07/31: Diamox x3 07/31: EP c/s, awaiting PPM Interval History: - Medtronic IT DESKTOP SUPPORT TECHNICIAN-D with EP (DDD 60-100) - TTF Objective [...] sternal plating - Post CPB EMILE on BLOCK HACKER 5 w/ mildly improved LV function (from [...] 08/03) #Dysphagia - Diet as above - TUNNEL MINER following #GERD, chronic - Continue home PPI Endocrine: #DM2, chronic - Home regimen: Lantus 90 units - 07/14 A1C 7.5 - Lantus 40 units + SSI Renal: #VITALY - Resolved #Azotemia - /2 Diuretic adminstration - BUN/Cr: 34/ 1.15 - [...] Unit Standards of Care: DVT prophylaxis: SCDs, SQ Vascular access: RIJ QLC (07/24), PIV Goals [...] plan with the patient's team and other medical/reporting process consultant staff. This time was in addition [...] MD at 08/04/2024 4:40 PM CDT * Shantal Elizabeth NP - 08/03/2024 7:13 AM CDTAssociated [...] and b/l chest tubes. Changed fro m BLOCK HACKER to Epi. 07/25: Inhaled Veletri added for [...] sternal plating - Post CPB EMILE on BLOCK HACKER 5 w/ mildly improved LV function (from [...] 08/03) #Dysphagia - Diet as above - TUNNEL MINER following #GERD, chronic - Continue home PPI [...] Piña ID: #Leukocytosis, likely reactive - WBC: 12.1 [...] plan with the ICU team and other medical/reporting process consultant staff, making frequent assessments and decisions [...] 2 and bilateral chest tubes. Changed from BLOCK HACKER to Epi. 07/25: Inhaled Veletri added for [...] 3-12 mL/hr, Last Rate: 6 mL/hr (08/02/24 1900) dextrose OR dextrose glucagon hydrOXYzine ondansetron oxyCODONE [...] ml Ventilator settings: FiO2 (%): 21 % (08/02 0430) Hemodynamic parameters: PAP: -- CVP: 5 mmHg [...] clean, dry, intact. SVG site with dermabond CRM SOLUTION ARCHITECT. Laboratory data: Recent Labs Lab Units 08/01/24233007/31/24231507/30/242338 WBC K/cumm 8.3 5.6 4.0 HEMOGLOBIN g/dL 8.2* 7.4* 7.3* HEMATOCRIT % 25.5* 24.4* 23.5* PLATELETS K/cumm 154 121* 91* Recent Labs Lab Units 08/01/24233007/31/24231507/30/24 2339 SODIUM mmol/L 142 144 148* POTASSIUM [...] and sternal plating Post CPB EMILE on BLOCK HACKER 5 w/ mildly improved LV function (from [...] daily Updates: Critical Care Performed by: Erin Hawkins NP Authorized by: Erin Hawkins NP CRITICAL CARE: [...] plan with the ICU team and other medical/reporting process consultant staff, making frequent assessments and decisions [...] at 08/03/2024 5:42 PM CDT * Zen AmaralTeodora - 08/02/2024 3:17 PM CDT Physical Therapy [...] treatment team and contact the PT or LAWNMOWER MECHANIC currently assigned to this patient. If a physical therapy clinician is not assigned to this patient, please call [phone]. 08/02/24 1435 PT Last Visit Session Type Treatment PT [...] lesion type, unspecifiedwhether angina present, unspecified whether belkofski or transplanted heart Surgical ICU Daily Progress [...] 2 and bilateral chest tubes. Changed from BLOCK HACKER to Epi. 07/25: Inhaled Veletri added for [...] are again seen. The right internal jugular Anderson-Gwen catheter tip is over the right ventricular [...] sternal plating - Post CPB EMILE on BLOCK HACKER 5 w/ mildly improved LV function (from [...] discussed with ICU attending/ICU fellow Mala Latif [facility] Critical Care Performed by: Mala Latif NP [...] plan with the ICU team and other medical/reporting process consultant staff, making frequent assessments and decisions [...] 2 and bilateral chest tubes. Changed from BLOCK HACKER to Epi. 07/25: Inhaled Veletri added for [...] 3-12 mL/hr, Last Rate: 6 mL/hr (08/02/24 020) PRN Meds:. dextrose OR dextrose glucagon hydrOXYzine [...] are again seen. The right internal jugular Anderson-Gwen catheter tip is over the right ventricular [...] sternal plating - Post CPB EMILE on BLOCK HACKER 5 w/ mildly improved LV function (from [...] lesion type, unspecifiedwhether angina present, unspecified whether belkofski or transplanted heart Surgical ICU Daily Progress [...] 2 and bilateral chest tubes. Changed from BLOCK HACKER to Epi. 07/25: Inhaled Veletri added for [...] oral, Nightly heparin, 5,000 Units, subcutaneous, Q8H [facility] [START ON 08/02/2024] insulin glargine, 40 Units, [...] are again seen. The right internal jugular Anderson-Gwen catheter tip is over the right ventricular [...] sternal plating - Post CPB EMILE on BLOCK HACKER 5 w/ mildly improved LV function (from [...] discussed with ICU attending/ICU fellow Mala Latif [facility] Critical Care Performed by: Mala Latif NP [...] plan with the ICU team and other medical/reporting process consultant staff, making frequent assessments and decisions [...] lesion type, unspecifiedwhether angina present, unspecified whether belkofski or transplanted heart Surgical ICU Daily Progress [...] 0.9%, 3-12 mL/hr, Last Rate: 9 mL/hr (07/31/241799) PRN Meds:. dextrose OR dextrose glucagon hydrOXYzine [...] are again seen. The right internal jugular Anderson-Gwen catheter tip is over the right ventricular [...] sternal plating - Post CPB EMILE on BLOCK HACKER 5 w/ mildly improved LV function (from [...] plan with the patient's team and other medical/reporting process consultant staff. This time was in addition [...] at 08/03/2024 5:42 PM CDT * Briseida Landrum, OT - 07/31/2024 11:46 AM CDT Occupational [...] not assigned to this patient, please call [phone]. 07/31/24 1141 General Session Type Treatment (co-treat with PT) [...] Static Standing-Balance Support Bilateral upper extremity supported (COBBLER MCKAY) Static Standing-Standing Surface Floor Static Standing-Level of [...] task completion. 07/27/24 08/26/24 -- * Viry Soliman PT - 07/31/2024 11:45 AM CDT Physical [...] treatment team and contact the PT or LAWNMOWER MECHANIC currently assigned to this patient. If a physical therapy clinician is not assigned to this patient, please call [phone]. Co-session complete with OT due to patient's [...] independence with functional mobility. * Mala Latif [employer]PERVISOR [employer]CH[employer]ADING - 07/31/2024 6:00 AM CDTAssociated Order(s): Critical Care Post-Procedure Diagnose(s): Coronary artery disease, unspecified vessel or lesion type, unspecifiedwhether angina present, unspecified whether belkofski or transplanted heart Surgical ICU Daily Progress Team: 8200 AM 2 Subjective Patient is a 74 y.o. male admitted on 07/24/2024 6:02 AM with chief complaint of CAD s/p CABG. Interval History: - Consult EP: recs to obtain EKG with underlying rhythm - CTS: decreased pacer to DDD at 90, removed SWAN - FBG negative - TUNNEL MINER: mechanical soft with thin liquids - replete [...] are again seen. The right internal jugular Anderson-Gwen catheter tip is over the right ventricular [...] mediastinal silhouette is unchanged. Dictated by: Tone lOson M.D. The radiology attending physician has personally [...] sternal plating - Post CPB EMILE on BLOCK HACKER 5 w/ mildly improved LV function (from [...] discussed with ICU attending/ICU fellow Mala Latif [facility] Critical Care Performed by: Mala Latif NP [...] plan with the ICU team and other medical/reporting process consultant staff, making frequent assessments and decisions [...] lesion type, unspecifiedwhether angina present, unspecified whether belkofski or transplanted heart Surgical ICU Daily Progress [...] are again seen. The right internal jugular Anderson-Gwen catheter tip is over the right ventricular [...] mediastinal silhouette is unchanged. Dictated by: Tone Wesley, M.D. The radiology attending physician has personally [...] sternal plating - Post CPB EMILE on BLOCK HACKER 5 w/ mildly improved LV function (from [...] plan with the ICU team and other medical/reporting process consultant staff, making frequent assessments and decisions [...] lesion type, unspecifiedwhether angina present, unspecified whether belkofski or transplanted heart CT ICU Daily Progress [...] 2 and bilateral chest tubes. Changed from BLOCK HACKER to Epi. 07/25: Inhaled Veletri added for [...] wean off at 2200 - NPO, per TUNNEL MINER, ok for crushed meds in applesauce. Plan [...] sternal plating - Post CPB EMILE on BLOCK HACKER 5 w/ mildly improved LV function (from [...] plan with the ICU team and other medical/reporting process consultant staff, making frequent assessments and decisions [...] lesion type, unspecifiedwhether angina present, unspecified whether belkofski or transplanted heart Surgical ICU Daily Progress [...] are again seen. The right internal jugular Anderson-Gwen catheter tip is over the right ventricular [...] sternal plating - Post CPB EMILE on BLOCK HACKER 5 w/ mildly improved LV function (from [...] plan with the ICU team and other medical/reporting process consultant staff, making frequent assessments and decisions [...] lesion type, unspecifiedwhether angina present, unspecified whether belkofski or transplanted heart CT ICU Daily Progress [...] 2 and bilateral chest tubes. Changed from BLOCK HACKER to Epi. 07/25: Inhaled Veletri added for worsening RV dysfunction. 07/26: Unable to wean Veletri d/t increasing PA pressures 07/27: Veletri wean, epi at 0.05 07/28: Veletri weaned off Interval History: - Bumex decreased to 1 mg/hr--> off - Diamox 500 mg x3 - Epi weaned to 0.03, plan to wean q12 - TUNNEL MINER c/s for difficulty swallowing - EP c/s [...] sternal plating - Post CPB EMILE on BLOCK HACKER 5 w/ mildly improved LV function (from [...] Unit Standards of Care: DVT prophylaxis: SCDs, SQ Vascular access: Right radial arterial line (07/24), [...] plan with the ICU team and other medical/reporting process consultant staff, making frequent assessments and decisions [...] lesion type, unspecifiedwhether angina present, unspecified whether belkofski or transplanted heart CT ICU Daily Progress [...] 2 and bilateral chest tubes. Changed from BLOCK HACKER to Epi. 07/25: Inhaled Veletri added for [...] Intake/Output: Intake/Output Summary (Last 24 hours) at 07/28/20241926 Last data filed at 07/28/2024 1900 Gross [...] sternal plating - Post CPB EMILE on BLOCK HACKER 5 w/ mildly improved LV function (from [...] plan with the ICU team and other medical/reporting process consultant staff, making frequent assessments and decisions [...] MD at 07/30/2024 12:54 PM CDT * Shantal Elizabeth NP - 07/28/2024 7:32 AM CDTAssociated Order(s): Critical Care Post-Procedure Diagnose(s): Coronary artery disease, unspecified vessel or lesion type, unspecifiedwhether angina present, unspecified whether belkofski or transplanted heart CT ICU Daily Progress [...] 2 and bilateral chest tubes. Changed from BLOCK HACKER to Epi. 07/25: Inhaled Veletri added for [...] sternal plating - Post CPB EMILE on BLOCK HACKER 5 w/ mildly improved LV function (from [...] plan with the ICU team and other medical/reporting process consultant staff, making frequent assessments and decisions [...] lesion type, unspecifiedwhether angina present, unspecified whether belkofski or transplanted heart CT ICU Daily Progress [...] 2 and bilateral chest tubes. Changed from BLOCK HACKER to Epi. 07/25: Inhaled Veletri added for [...] Intake/Output Summary (Last 24 hours) at 07/27/2024 1927 Last data filed at 07/27/2024 1900 Gross [...] sternal plating - Post CPB EMILE on BLOCK HACKER 5 w/ mildly improved LV function (from [...] plan with the ICU team and other medical/reporting process consultant staff, making frequent assessments and decisions [...] at 07/30/2024 12:54 PM CDT * Briseida Landrum, OT - 07/27/2024 8:08 AM CDT Occupational [...] not assigned to this patient, please call [phone]. 07/27/24 0808 General Chart Reviewed Yes Session [...] Static Standing-Balance Support Bilateral upper extremity supported (COBBLER MCKAY) Static Standing-Standing Surface Floor Static Standing-Level of [...] Comments limited AROM noted, PROM WFL, decreased can tester strength LUE Assessment LUE Assessment X LUE Comments limited AROM noted, PROM WFL, decreased can tester strength Daily Activity - 6 Clicks Putting [...] Evaluation Complete Yes Time Calculation Start Time 807 Stop Time 836 Time Calculation (min) 29 min Multi-Disciplinary Problems [...] lesion type, unspecifiedwhether angina present, unspecified whether belkofski or transplanted heart CT ICU Daily Progress [...] 2 and bilateral chest tubes. Changed from BLOCK HACKER to Epi. 07/25: Inhaled Veletri added for [...] sternal plating - Post CPB EMILE on BLOCK HACKER 5 w/ mildly improved LV function (from [...] monitor closely, f/u CBC - DVT PPx: SCDemiliana SQ ID: #Leukocytosis, likely reactive - WBC: 11.2 [...] plan with the ICU team and other medical/reporting process consultant staff, making frequent assessments and decisions [...] lesion type, unspecifiedwhether angina present, unspecified whether belkofski or transplanted heart ICU Daily Progress Shifts: [...] sternal plating. Overnight changed to Epi from BLOCK HACKER. 07/25: Inhaled Veletri added for worsening RV [...] Ventilator settings: FiO2 (%): 30 % (07/26 1611) Hemodynamic parameters: PAP: 60/38 (07/26 170) CVP: 15 mmHg (07/26 1700) PCWP: -- [...] : castro with clear yellow urine Skin: [place], warm, dry, midline sternal incision covered w/ [...] and sternal plating. Post CPB EMILE on BLOCK HACKER 5 w/ mildly improved LV function (from [...] plan with the ICU team and other medical/reporting process consultant staff, making frequent assessments and decisions [...] treatment team and contact the PT or LAWNMOWER MECHANIC currently assigned to this patient. If a physical therapy clinician is not assigned to this patient, please call [phone]. 07/26/24 0859 General Chart Reviewed Yes Session Type Evaluation [...] Single point cane Prior Function Level of [place] Independent functional transfers;Independent with ambulation (Mod I with SC) Lives With Son Receives Help From Family (son, FT) Fall within the last 6 months No Activity Tolerance Activity Tolerance Comments RPE with activity: 10/10 Pain Assessment Pain Assessment No/denies pain Cognition [...] Time Calculation Start Time 0859 Stop Time 0929 Time Calculation (min) 30 min Multi-Disciplinary Problems [...] End Date End Date [place] [facility] [place]26[place]24 08/09/24 -- Goal Details: Patient and caregivers will participate in and demonstrate understanding of therapeutic exercise and safe mobility strategies to improve independence with functional mobility. * Amber Rose PA - 07/26/2024 6:37 AM CDTAssociated Order(s): Critical Care Post-Procedure Diagnose(s): Coronary artery disease, unspecified vessel or lesion type, unspecifiedwhether angina present, unspecified whether belkofski or transplanted heart CT ICU Daily Progress [...] RCA subtotal occlusion. He was referred to [facility] for surgical management. Hospital course / Events [...] Intake/Output: Intake/Output Summary (Last 24 hours) at 07/26/2024 0637 Last data filed at 07/26/2024 0600 Gross per 24 hour Intake 1823.9 ml [...] - trend CBC daily - DVT prophylaxis: SQH ID: Lab Results Component Value Date WBC [...] plan with the ICU team and other medical/reporting process consultant staff, making frequent assessments and decisions [...] lesion type, unspecifiedwhether angina present, unspecified whether belkofski or transplanted heart ICU Daily Progress Shifts: [...] sternal plating. Overnight changed to Epi from BLOCK HACKER. 07/25: Inhaled Veletri added for worsening RV [...] Ringer's, 10 mL/hr, Last Rate: 10 mL/hr (07/25/241799) nitroglycerin, 10 mcg/min, Last Rate: 10 mcg/min (07/25/241799) norepinephrine, 0-2 mcg/kg/min sodium chloride 0.9%, 3-12 mL/hr, Last Rate: 9 mL/hr (07/25/241799) vasopressin, 0-0.06 Units/min, Last Rate: Stopped (07/25/241519) Vitals: Temp: [37.5 ??C (99.5 ??F)] 37.5 [...] 1800) PCWP: -- CO: 5.54 L/min (07/25 1529) CI: 2.44 L/min/m2 (07/25 1529) SVO2: 65 [...] : castro with clear yellow urine Skin: [place], warm, dry, midline sternal incision covered w/ [...] and sternal plating. Post CPB EMILE on BLOCK HACKER 5 w/ mildly improved LV function (from [...] plan with the ICU team and other medical/reporting process consultant staff, making frequent assessments and decisions [...] lesion type, unspecifiedwhether angina present, unspecified whether belkofski or transplanted heart CT ICU Daily Progress [...] RCA subtotal occlusion. He was referred to [facility] for surgical management. Hospital course / Events [...] castro Wounds: see RN flowsheet Access: BILLY KO + neno, right radial art line Medications Scheduled Meds:acetaminophen, [...] regular, 0-30 Units/hr, Last Rate: 6 Units/hr (07/25/24699) Lactated Ringer's, 10 mL/hr, Last Rate: 10 mL/hr (07/25/24699) nitroglycerin, 10 mcg/min, Last Rate: 10 mcg/min (07/25/24699) norepinephrine, 0-2 mcg/kg/min sodium chloride 0.9%, 3-12 mL/hr sodium chloride 0.9%, 3-12 mL/hr, Last Rate: 9 mL/hr (07/25/24699) Vital signs for last 24 hours: Temp: [...] - trend CBC daily - DVT prophylaxis: SQH ID: Lab Results Component Value Date WBC [...] plan with the ICU team and other medical/reporting process consultant staff, making frequent assessments and decisions [...] regular, 0-30 Units/hr, Last Rate: 1 Units/hr (07/24/24 182) Lactated Ringer's, 10 mL/hr, Last Rate: 10 mL/hr (07/24/24 183) nitroglycerin, 10 mcg/min, Last Rate: 10 mcg/min (07/24/241799) norepinephrine, 0-2 mcg/kg/min, Last Rate: 0.1 mcg/kg/min (07/24/24 184) sodium chloride 0.9%, 3-12 mL/hr sodium chloride [...] : castro with clear yellow urine Skin: [place], warm, dry, midline sternal incision covered w/ [...] and sternal plating. Post CPB EMILE on BLOCK HACKER 5 w/ mildly improved LV function (from 40-50% pre CPB), mild RV dysfunction. Currently supported w/ BLOCK HACKER 5, NE 0.08. CI 2.27-2.3, PAS ~40% systemic, CVP 15. Lactate 2.3. - continue BLOCK HACKER 5 - continue NTG 10 mcg/min due [...] POD #1 to eval & treat Updates: 2130: Patient still requiring NE 0.16 and vasopressin [...] plan with the ICU team and other medical/reporting process consultant staff, making frequent assessments and decisions [...] INSERT/REPLACE IMPLANTABLE CARDIOVERTER-DEFIBRILLATOR (ICD) DUAL CHAMBER SYSTEM 63788 INSERT LV LEAD W PACEMAKER (PPM) OR IMPLANTABLE CARDIOVERTER-DEFIBRILLATOR (ICD) PLACEMENT (+) 96851 Source Note - Leonor Duncan MD - [...] will continue to follow. Leonor Duncan MD Truck Body Repairer 3:38 PM 07/31/24 Cosigned by Blu Peacock [...] RCA subtotal occlusion. He was referred to [facility] for surgical management. On 07/24, patient presents [...] supported on levophed at 0.08 mcg/kg/min and BLOCK HACKER at 5 mcg/kg/min. He remains on nitroglycerin [...] wean for full exam Cardiac: levo 0.08, BLOCK HACKER 5, nitro 10; paced via AV wires 90 Pulmonary: mechanical ventilation, mCT x2, pCT x2. Midline sternotomy with dressing in place, [place] holding suction. Abdominal: round, non-distended Extremities: BLE edema R > L, venous stasis changes to BLE, palpable pulses Drains: Castro, mCT x 2, pCT x 2, castro Wounds: see RN flowsheet Access: [facility] QLC + swan, right radial art line Lab/Radiology/Diagnostic Review: Laboratory review: Lab results in the last 12 hours: Recent Results (from the past 12 hour(s)) Prepare RBC: 4 Units Collection Time: 07/24/24 6:36 AM Result Value Ref Range Product code Z3339S07 Unit Number [id number] Product Blood Type OPOS Dispense Status ISSUED Product code T0482D13 Unit Number [id number] Product Blood Type OPOS Dispense Status RETURNED Product code C1702D60 Unit Number [id number] Product Blood Type OPOS Dispense Status RETURNED Product code R6601W80 Unit Number [id number] Product Blood Type OPOS Dispense Status RETURNED [...] PM Result Value Ref Range Product code V6092K05 Unit Number [id number] Product Blood Type BPOS Dispense Status ISSUED [...] PM Result Value Ref Range Product code N7241Q96 Unit Number [id number] Product Blood Type OPOS Dispense Status ISSUED [...] levophed for MAP > 80 - continue BLOCK HACKER for CI 2.2-4 L/min/m2 - continue nitroglycerin [...] ICU HDSSI RENAL: No results found for: [id number] , LX0KODD , CREATININE - Castro in place for [...] plan with the ICU team and other medical/reporting process consultant staff, making frequent assessments and decisions [...] VEIN Patient well known to me from [facility]. CABGx3, BURGESS, left radial, saphenous vein. Moderate EF (40%). Dereje's test good by exam and with the pulse oximeter. Plating because he walks with a cane. Leonor Quan MD Source Note - Shantal Sánchez NP - 07/14/2024 10:53 AM CDT Images from the original note were not included. [facility] Planning Preoperative Evaluation Record Evaluation type/location: [facility] Planned procedure site: [facility] (Pods 2/3/5/[facility]) Date: 07/14/24 Anesthesia Evaluation Abiel Fink is [...] degree AV block and RBBB. Pertinent negatives: TX ; CABG ; systolic/diastolic dysfunction w/o CHF [...] CBC and PT/INR in 06/2024 at the OR without acute concern. H/H 13.3/1.2, PLT 107 (chronic), and PT/INR 13.3/1.2. Prior aPTT unavailable. D/w patient who is agreeable to return to the OR for a pre-op PT/INR, aPTT, CBC. Fax sent to PCP (Dr. Retana[facility] Will notify the surgery team if aPTT [...] Follow up note 07/20/24 Labs at the OR (in CE - overview documents summary): WBC: [...] Medical History: Diagnosis Date Asthma Diabetes mellitus (CMS/HCC) GERD (gastroesophageal reflux disease) HH (hiatus hernia) [...] (DECADRON) 4 mg tablet -- 07/04/24 -- ProviderNasir MD DULoxetine DR (CYMBALTA) 60 mg capsule [...] Quan MD Authorized by: Leonor Quan MD [place] Protocol: RN Notified of Procedure: yes Informed consent: Risks, benefits, alternatives discussed and patient/customer account representative/guardian agrees and accepts Patient's stated name/ matches [...] pulmonary artery catheter at bedside using the Granger technique (Intensive Care Medicine, 1996). The patient was placed in gentle Trendelenburg [...] but eventually it pulled out intact. A oseqyr-en-nhnoc 2-0 Prolene suture was used to close the tract. There was no bleeding. Patient tolerance: Patient tolerated the procedure well with no immediate complications Post Procedure Debrief: All guidewires, needles, sponges or other items are accounted for: yes Any special post procedure monitoring, testing or other considerations: n/a All specimens identified, labeled and matched to patient identification: n/a Responsible republican for transporting specimen(s) to lab determined: n/a I was present for the entire procedure. Leonor Quan MD * Erin Zaragoza, TUNNEL MINER - 07/31/2024 8:56 AM CDTAssociated Order(s): TUNNEL MINER EVALUATE AND TREAT Speech-Language Pathology: Clinical Bedside Swallow HPI/PMH 74 y.o. yo male w/ PMHx of HTN, HLD, CAD, moderate MR, 2nd degree av block, asthma, JACQUELINE, pHTN, hepatic steatosis, GERD, hiatal hernia, DM Type II (Hgb A1c7.5), hx of pituitary adenoma, and obesity. Patient with worsening shortness of breath and functional status. He was referred to [facility] for surgicalmanagement. 07/24: CABG x 3 (BURGESS [...] 2 and bilateral chest tubes. Changed from BLOCK HACKER to Epi. 07/25: Inhaled Veletri added for [...] Self feeding. Current Diet Order: NPO pending TUNNEL MINER re-evaluation General Information Abiel Fink 07/31/24 General [...] Clinical Impression/Additional Information: Per comparison with initial TUNNEL MINER evaluation noteyesterday, pt's mental status significantly improved [...] MASA score improved from 140/200 yesterday. Plan TUNNEL MINER Frequency of Services during current admission: Discharge from this Service TUNNEL MINER Recommendation (Add'l Services): No further TUNNEL MINER indicated Next Visit Plan: No further TUNNEL MINER visits planned in acute care; please re-refer if additional dysphagia concerns arise. Please reference care plan for treatment goals, if indicated. Discharge Summary Statement If this is the last swallow therapy visit, this serves as the discharge summary. * Eloise Howe, BALWINDER - 07/30/2024 2:12 PM CDT Speech-Language Pathology: Clinical Bedside Swallow HPI/PMH 74 y.o. yo male w/ PMHx of HTN, HLD, CAD, moderate MR, 2nd degree av block, asthma, JACQUELINE, pHTN, hepatic steatosis, GERD, hiatal hernia, DM Type II (Hgb A1c7.5), hx of pituitary adenoma, and obesity. Patient with worsening shortness of breath and functional status. He was referred to [facility] for surgicalmanagement. 07/24: CABG x 3 (BURGESS [...] 2 and bilateral chest tubes. Changed from BLOCK HACKER to Epi. 07/25: Inhaled Veletri added for [...] oral mechanism exam (did not benefit from TUNNEL MINER cueing), minimal verbalizations. Pain Score: 0 - [...] Aspiration Risk: Moderate aspiration risk (141-148) Plan TUNNEL MINER Frequency of Services during current admission: Pending re-evaluation TUNNEL MINER Recommendation (Add'l Services): Defer at this time [...] will continue to follow. Leonor Duncan MD Truck Body Repairer 3:38 PM 07/31/24 Cosigned by Blu Peacock [...] 70 minutes which was spent performing a kaxi-ru-aoml encounter and personally completing the provider-level activities [...] CABG x3 and Sternal Plating (08/03). 07/31: TUNNEL MINER eval regular texture and thin liquids, order [...] 2339 07/30/24 1213 07/30/24 0101 07/29/24 0031 SODIUM mmol/L 148* < > 150* 147* POTASSIUM PLASMA mmol/L 3.3 < > 3.6 3.8 CHLORIDE mmol/L 109 < > 107 105 CO2 mmol/L 30 < > 34* 31 BUN SERUM mg/dL 56* < > 56* 55* CREATININE mg/dL 1.20 < > 1.39* 1.23 [id number] mL/min/1.73 m2 64 < > 54* 62 CALCIUM mg/dL 8.5 < > 9.2 8.9 PHOSPHORUS PLASMA mg/dL 3.6 -- 4.1 3.3 MAGNESIUM mg/dL 2.1 -- 2.0 1.9 < > = values in this interval not displayed. Recent Labs Lab Units 07/31/24 1124 07/31/24 0738 07/30/24 2339 07/30/24200407/30/24 1701 07/30/24 1213 07/30/24 1056 GLUCOSE mg/dL [...] of Weight Used for Estimated Protein : [place] Total Fluid Estimated Needs: 1882.5 Fluid Needs Based on : 25 ml/kg Type of Weight Used for Estimated Fluid Needs: [place] Dietary Orders (From admission, onward) Start Ordered 07/31/24 1317 Oral Nutrition Supplements ([facility]) Select Supplement: Glucerna Shake - Chocolate, VARY/multiple Flavor With Breakfast and Dinner Question Answer Comment ([facility]) Select Supplement: Glucerna Shake - Chocolate ([facility]) Select Supplement: VARY/multiple Flavor 07/31/24 1316 07/31/24 1046 Adult Diet Restricted; Mechanical Soft; Regular Liquid Diet effective now Question Answer Comment ([facility]) Diet type Restricted Modified Consistency: Mechanical Soft [...] function, Weight changes Toy Whaley MS, RD, [facility], N [phone] Hydraulic Rockbreaker Operator-Weekend: [phone] documented in this encounter Nursing Notes * Nedra Ray RN - 08/11/2024 12:22 PM CDT Report called to Mag at the OR. Patients PIVs removed. Discharge packet and education reviewed, all questions were answered. Patient ready for discharge, awaiting EMS pickup. * Mynor Sutton RN - 08/04/2024 1:00 PM CDT Patient is returning to 84 by bed on monitor and accompanied by RN .Patient is alert and orientedto person,place,time,and situation. Vitals are stable. Patient is able to drink with no complications. Report was given to Renee Benitez. Chart was sent with transporter. * Mynor Sutton RN - 08/04/2024 11:55 AM CDT Patient had xray completed and Dr Aleksandr lu to send back to floor. * Parveen Mojica RN - 07/29/2024 6:46 AM CDT Nursing cares resumed at 0030 am. I reviewed and agreed with previous nursing assessments with exceptions noted. Will continue to monitor patient. * Ruth Ann Cleary RN - 07/25/2024 12:30 AM CDT I agree with the assessment charted * Pito Olson RN - 07/24/2024 4:05 PM CDT This patient arrives to [facility] intubated/sedated accompanied by OR and Anesthesia staff. [...] management, remain free from falls and injury [facility] Goal for Treatment: snf vs [...] management, remain free from falls and injury [facility] Goal for Treatment: snf vs [...] management, remain free from falls and injury [facility] Goal for Treatment: snf vs [...] d/c. ADD: 08/14/24 Discharge Barriers: Pt is [facility] for [facility] and [facility] will not have a bed until next week, 08/14. CM will continue to follow. Education Needs Identified (plan): Update the pt on the bed status for [facility] as necessary. F/U Appointments: OR will schedule follow up appointment. Patient's Identified Problem/Goal Problem:?Ensure acute medical needs are met and that patient has a safe discharge plan. Goal:?Secure a discharge plan that patient/family are agreeable with?and ensure patient has continuum of care. Patient and/or family are agreeable with plan. manager stars will continue to follow and assist with discharge planning as needed. If any further discharge needs arise, please contact the covering watch case polisher. * Plan of Care - Arabella Mancini [...] monitor labs, IOs, promote comfort and safety [facility] Goal for Treatment: snf vs [...] monitor labs, IOs, promote comfort and safety [facility] Goal for Treatment: snf vs rehab Summary: Vss, monitor labs, monitor vitals, promote safety * Plan of Care - Viry Taobr RN - 08/08/2024 12:18 PM CDT HOMA spoke with Jennifer at OR. She will present the patient's clinical information to the doctors at [facility]. Does not anticipate a bed until next [...] patients goal, OOBTC for meals, accurate I&Os [facility] Goal for Treatment: snf vs rehab Summary: VSS, pain well controlled, OOB x3 today, monitor I&o * Plan of Care - Viry Tabor RN - 08/07/2024 11:49 AM CDT 07/25/24 0931 Discharge Planning Support System Children Anticipated discharge level of care Acute Rehab ([facility]) Does the patient need discharge transport arranged? [...] Discharge Barriers: acceptance and bed availability at [facility]. Education Needs Identified (plan): OR referral form for IPR completed and faxed to [phone] along with supporting clinical documentation. F/U Appointments: per facility. Patient's Identified Problem/Goal Problem:?Ensure acute medical needs are met and that patient has a safe discharge plan. Goal:?Secure a discharge plan that patient/family are agreeable with?and ensure patient has continuum of care. Patient and/or family are agreeable with plan. manager stars will continue to follow and assist with discharge planning as needed. If any further discharge needs arise, please contact the covering watch case polisher. * Plan of Care - Kasia Arechiga [...] patients goal, OOBTC for meals, accurate I&Os Straight Line Ed[facility] Patient Centered Goal for Treatment: snf vs rehab Summary: patient is increasing in activity tolerance. Labs and vital signs monitored. * Plan of Care - Leanna Baltazar - 08/06/2024 4:34 PM CDT Goals: Clinical Goals for the Shift: VSS, pain managed per patients goal, OOBTC for meals, accurate I&Os [facility] Edger Patient Centered Goal for Treatment: snf vs [...] Associated Problem(s): DM2 (diabetes mellitus, type 2) ([facility]) - Home regimen: Lantus 90 [...] skin breakdown, free from falls or injury [facility] Patient Centered Goal for Treatment: snf vs [...] skin breakdown, free from falls or injury Stra[facility] Line Edger Patient Centered Goal for Treatment: snf vs [...] for pain. Notify the physician office at [phone] immediately if you develop abrupt pain or swelling. If you feel there is an urgent matter, call 911 or go to the emergency room. Call the office at [phone] with any routine questions or concerns. If you are unable to reach your doctor please call [facility] information assurance analyst at [phone]. He or she will contact the physician on the Electrophysiology service to assist you. Patient verbalized understanding and will follow-up with EP as scheduled. Reina Ellis MD Fellow Physician, Electrophysiology Cardiovascular Division, [facility] in [place] 08/05/2024, 7:12 AM Cosigned by Lucy Meyer [...] from pacemaker placement. * Hospital Course - Nacho, Va Medeiros NP - 08/04/2024 2:38 PM CDT 74 [...] RCA subtotal occlusion. He was referred to [facility] for surgical management. Mr. Fink was taken [...] EP lab on 08/04/24 for PPMimplantation (Medtronic IT DESKTOP SUPPORT TECHNICIAN-D with EP (DDD 60-100). Post pacemaker implantation, [...] for pain. Notify the physician office at [phone] immediately if you develop abrupt pain or swelling. If you feel there is an urgent matter, call 911 or go to the emergency room. Call the office at [phone] with any routine questions or concerns. If you are unable to reach your doctor please call [facility] information assurance analyst at [phone]. 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 [...] or first thing tomorrow morning. Plan for IT DESKTOP SUPPORT TECHNICIAN-P pending repeat limited echo. Please make patient [...] CHB and LVEF 26%, discussed with patient IT DESKTOP SUPPORT TECHNICIAN-P vs IT DESKTOP SUPPORT TECHNICIAN-D given ICM with LVEF less than 35%, patient agreed to proceed with IT DESKTOP SUPPORT TECHNICIAN-D. * Plan of Care - Yue Estrada [...] Summary:Pain management, vitals, I/O * Plan of Laure - Claudia Dimas RN - 08/01/2024 6:38 [...] subcutaneous, Q8H HILDA, 5,000 Units at 08/01/24 161 hydrOXYzine (ATARAX) tablet 25 mg, 25 mg, oral, QID PRN, 25 mg at 07/29/242034 [START ON 08/02/2024] insulin glargine (LANTUS, SEMGLEE) 100 unit/mL injection 40 Units, 40 Units, subcutaneous, QAM insulin lispro (HumaLOG, ADMELOG) 100 unit/mL injection 0-10 Units, 0-10 Units, subcutaneous, TID with meals, 2 Units at 07/30/24 1707 insulin lispro (HumaLOG, ADMELOG) 100 unit/mL injection 0-5 Units, 0-5 Units, subcutaneous, Nightly, 1 Units at 07/31/242025 isosorbide mononitrate ER (IMDUR) extended release tablet 15 mg, 15 mg, oral, Daily, 15 mg at 08/01/24936 Lactated Ringer's (LR) infusion, 10 mL/hr, intravenous, Continuous, Stopped at 07/30/24 021 methocarbamoL (ROBAXIN) tablet 500 mg, 500 mg, oral, TID, 500 mg at 08/01/24 0942 ondansetron (ZOFRAN) injection 4 mg, 4 mg, intravenous, Q6H PRN oxyCODONE (ROXICODONE) tablet 5 mg, 5 mg, oral, Q4H PRN, 5 mg at 08/01/[address] (PROTONIX) extended release tablet 40 mg, 40 mg, oral, Daily, 40 mg at 08/01/24936 potassium chloride 20 mEq/50 mL in sterile water (premix) 20 mEq, 20 mEq, intravenous, Q1H PRN, Last Rate: 25 mL/hr at 07/29/24 1747, 20 mEq at 07/29/24 1747 QUEtiapine (SEROquel) tablet 100 mg, 100 mg, [...] Lab/Radiology/Diagnostic Review: Labs: Recent Labs Lab Units 07/31/24 2316 07/30/24 2339 07/30/24 0101 07/29/24 0031 07/28/24 0003 HEMOGLOBIN g/dL 7.4* 7.3* 7.6* 7.7* 8.1* HEMATOCRIT % 24.4* 23.5* 24.4* 24.0* 25.5* WBC K/cumm 5.6 4.0 3.8 4.2 8.6 PLATELETS K/cumm 121* 91* 72* 67* 75* Recent Labs Lab Units 07/31/24 2316 07/30/24 2339 07/30/24 1213 07/30/24 0101 07/29/24 [...] not displayed. Recent Labs Lab Units 07/31/24 0422 07/30/24 [...] will continue to follow. Leonor Duncan MD Truck Body Repairer 4:20 PM 08/01/24 Cosigned by Blu Peacock [...] 15 minutes which was spent performing a [id number]-[id number] encounter and personally completing the provider-level activities [...] team are identified. Most likely next week. Blu Peacock MD 08/01/2024 10:54 PM * Plan [...] activity will improve Outcome: Ongoing Flowsheets (Taken 07/30/2024 0613) Patient's tolerance of increased activity will improve: [...] patient. * Plan of Care - Lobito Presley RRT - 07/29/2024 9:02 PM CDT BRONCHIAL HYGIENE [...] assess. * Plan of Care - Lamar Lund RRT - 07/29/2024 6:32 AM CDT NPPV - [...] will improve Outcome: Progressing * Plan of Laure - Leanna Ervin RN - 07/28/2024 6:43 [...] Cadet RN - 07/25/2024 10:01 AM CDT CM Initial Assessment Interview Note Information Obtained From: Patient (07/25/24930) Admission Source: home Impression: CAD Plan Includes: manager stars will monitor for post acute discharge needs such as therapy, nursing, medical equipment or agency referrals as indicated by the care team. Primary Source of Transportation: Does the patient need discharge transport arranged?: No (07/25/24930) Health Insurance Coverage: [facility] as primary also has Medicare A Prescription Coverage: yes OR Pharmacy: Alverto Gutierrez [facility] - Fax or Paper Script Only - send e-rx to [facility] [address] [place] [id number] [address] [place] [address] IN [place], [place] - [address] [facility] [address] [facility] [address] Primary Care Provider: Juan Retana MD Prior [...] (na) Facility contact name and number:: Jeremy [phone] Steps in home?: Yes, Outside of home, Yes, Inside home Number of steps inside: 10 steps Number of steps outside: 2 steps Medication management: Independent (07/25/24 050) Potential discharge needs include: Home Health: Physical therapy, Occupational therapy, FDC (07/25/24930) OP Services: no Dialysis: no Behavioral [...] Collaboration with Patient, Provider, Direct Care Nurse, Pelota Maker, and other members of theHealth Care Team to assure needed interventions completed. 2. Return patient to optimal level of self-care post discharge. 3. Corrugator Helper will follow for Discharge Planning - [...] - Fellow ANESTHESIOLOGIST: Anesthesiologist: Cristina Phipps MD Metal Fabrication Supervisor: Pito Loya MD Clinical Statistical Programmer: Saud Lange CCP; Bonnie Pagan CCP PREOPERATIVE [...] absorbable suture in layers over a Zay- Julein drain. Simultaneously, a median sternotomy was performed. [...] excellent. The anastomosis was performed in an [id number] using a running 7-0 Prolene. The aorta [...] of dobutamine and norepinephrine. After we from cardiopulmonary bypass, I reviewed the transesophageal echocardiogram with the anesthesiologist. It demonstrated improved ventricular function compared to before, with no new wall motion abnormality. The venous cannula was removed and hemostasis achieved at the cannulation site. Once the patient was hemodyn amically stable, protamine was administered to reverse heparin. The aortic cannula was removed, andthe site was secured. We did have some [...] 10:33 PM CDT CBC WITHOUT DIFFERENTIAL Routine 10:33 PM CDT MAGNESIUM Routine 08/10/2024 10:33 [...] 9:41 PM CDT CBC WITHOUT DIFFERENTIAL Timed 9:41 PM CDT TYPE AND SCREEN Timed [...] 9:28 PM CDT CBC WITHOUT DIFFERENTIAL Timed 024 9:28 PM CDT PHOSPHORUS Timed 08/04/2024 9:28 [...] :33 PM CDT POTASSIUM, WHOLE BLOOD STAT 4 4:20 PM CDT TRANSTHORACIC ECHO (TTE) LIMITED/FOLLOW [...] type, unspecified whether angina present, unspecified whether belkofski or transplanted heart POTASSIUM, WHOLE BLOOD STAT [...] type, unspecified whether angina present, unspecified whether belkofski or transplanted heart POTASSIUM, WHOLE BLOOD STAT [...] type, unspecified whether angina present, unspecified whether belkofski or transplanted heart XR CHEST 1 VIEW IP Routine 07/31/2024 6:00 PM CDT POTASSIUM, WHOLE BLOOD STAT 4 4:59 PM CDT POCT GLUCOSE DEVICE Routine 07/31/2024 4 :57 PM CDT GENERAL Routine 07/31/2024 12:53 PM CDT Other mechanical complication of infusion catheter, initial encounter (HCC) POTASSIUM, WHOLE BLOOD STAT 4 11:24 AM CDT POCT GLUCOSE DEVICE Routine 07/31/2024 11:24 AM CDT TUNNEL MINER EVALUATE AND TREAT Routine 8:56 AM CDT POCT GLUCOSE DEVICE Routine 07/31/2024 7 :38 AM CDT CRITICAL CARE Routine 07/31/2024 6:00 AM CDT Coronary artery disease, unspecified vessel or lesion type, unspecified whether angina present, unspecified whether belkofski or transplanted heart OXYHEMOGLOBIN, PULMONARY ARTERY STAT [...] type, unspecified whether angina present, unspecified whether belkofski or transplanted heart XR CHEST 1 VIEW [...] type, unspecified whether angina present, unspecified whether belkofski or transplanted heart OXYHEMOGLOBIN, PULMONARY ARTERY STAT [...] type, unspecified whether angina present, unspecified whether belkofski or transplanted heart POCT GLUCOSE DEVICE Routine [...] type, unspecified whether angina present, unspecified whether belkofski or transplanted heart OXYHEMOGLOBIN, PULMONARY ARTERY STAT 07/29/2024 8:38 AM CDT HEMOGLOBIN TOTAL, PULMONARY ARTERY STAT 07/29/2024 8:38 AM CDT POTASSIUM, WHOLE BLOOD Timed 4 8:38 AM CDT BLOOD GAS, ARTERIAL STAT 07/29/2024 8 :38 AM CDT POTASSIUM, WHOLE BLOOD Timed 3:59 AM CDT OXYHEMOGLOBIN, PULMONARY ARTERY STAT 07/29/2024 12:31 AM CDT POTASSIUM, WHOLE BLOOD STAT 12:31 AM CDT EGFR Routine 07/29/2024 12:31 [...] type, unspecified whether angina present, unspecified whether belkofski or transplanted heart POCT GLUCOSE DEVICE Routine 07/28/2024 5 :57 PM CDT POCT GLUCOSE DEVICE Routine 07/28/2024 4 :09 PM CDT HEMOGLOBIN TOTAL, CENTRAL VENOUS STAT 07/28/2024 4:06 PM CDT OXYHEMOGLOBIN, CENTRAL VENOUS STAT 07/28/2024 4:06 PM CDT POTASSIUM, WHOLE BLOOD STAT 4:06 PM CDT BLOOD GAS, ARTERIAL STAT 07/28/2024 4 :06 PM CDT POTASSIUM, WHOLE BLOOD Timed 12:08 PM CDT POCT GLUCOSE DEVICE Routine 07/28/2024 12:08 PM CDT POCT GLUCOSE DEVICE Routine 07/28/2024 7 :43 AM CDT POTASSIUM, WHOLE BLOOD Timed 4 7:37 AM CDT CRITICAL CARE Routine 07/28/2024 7:32 AM CDT Coronary artery disease, unspecified vessel or lesion type, unspecified whether angina present, unspecified whether belkofski or transplanted heart POTASSIUM, WHOLE BLOOD Timed 4:10 AM CDT POCT GLUCOSE DEVICE Routine [...] 11:50 PM CDT POTASSIUM, WHOLE BLOOD Timed 4 8:47 PM CDT POCT GLUCOSE DEVICE Routine 07/27/2024 8:47 PM CDT BLOOD GAS, ARTERIAL STAT 07/27/2024 8 :47 PM CDT XR CHEST 1 VIEW IP Routine 07/27/2024 8:44 PM CDT CRITICAL CARE Routine 07/27/2024 7:27 PM CDT Coronary artery disease, unspecified vessel or lesion type, unspecified whether angina present, unspecified whether belkofski or transplanted heart POCT GLUCOSE DEVICE Routine 07/27/2024 5 :53 PM CDT POCT GLUCOSE DEVICE Routine 07/27/2024 4 :38 PM CDT POTASSIUM, WHOLE BLOOD Timed 4 4:30 PM CDT TYPE AND SCREEN Timed 07/27/2024 4:30 PM CDT POCT GLUCOSE DEVICE Routine 07/27/2024 12:02 PM CDT POTASSIUM, WHOLE BLOOD STAT 12:00 PM CDT BLOOD GAS, ARTERIAL STAT 07/27/2024 12:00 PM CDT HEMOGLOBIN TOTAL, CENTRAL VENOUS STAT 07/27/2024 9:28 AM CDT OXYHEMOGLOBIN, CENTRAL VENOUS STAT 07/27/2024 9:28 AM CDT LACTATE STAT 07/27/2024 9:28 AM CDT BLOOD GAS, ARTERIAL STAT 07/27/2024 9 :28 AM CDT POCT GLUCOSE DEVICE Routine 07/27/2024 9 :18 AM CDT POTASSIUM, WHOLE BLOOD Timed 4 7:41 AM CDT POCT GLUCOSE DEVICE Routine 07/27/2024 7 :41 AM CDT CRITICAL CARE Routine 07/27/2024 7:22 AM CDT Coronary artery disease, unspecified vessel or lesion type, unspecified whether angina present, unspecified whether belkofski or transplanted heart POCT GLUCOSE DEVICE Routine [...] Timed 4 12:03 AM CDT EGFR Routine 07/27/2024 12:03 [...] type, unspecified whether angina present, unspecified whether belkofski or transplanted heart POCT GLUCOSE DEVICE Routine [...] type, unspecified whether angina present, unspecified whether belkofski or transplanted heart POCT GLUCOSE DEVICE Routine [...] 8:07 PM CDT POTASSIUM, WHOLE BLOOD Timed 4 8:07 PM CDT BLOOD GAS, ARTERIAL STAT 07/25/2024 8 :07 PM CDT POCT GLUCOSE DEVICE Routine 07/25/2024 8 :05 PM CDT CRITICAL CARE Routine 07/25/2024 6:40 PM CDT Coronary artery disease, unspecified vessel or lesion type, unspecified whether angina present, unspecified whether belkofski or transplanted heart POCT GLUCOSE DEVICE Routine 07/25/2024 6 :23 PM CDT POCT GLUCOSE DEVICE Routine 07/25/2024 [...] 10:13 AM CDT POTASSIUM, WHOLE BLOOD Timed 10:13 AM CDT CRITICAL RESULT CALLBACK CHEMISTRY STAT 07/25/2024 10:13 AM CDT BLOOD GAS, ARTERIAL STAT 07/25/2024 10:13 AM CDT POC BLOOD GAS AND CHEMISTRIES, ARTERIAL Routine 07/25/2024 8:02 AM CDT POCT GLUCOSE DEVICE Routine 07/25/2024 6 :53 AM CDT CRITICAL CARE Routine 07/25/2024 6:35 AM CDT Coronary artery disease, unspecified vessel or lesion type, unspecified whether angina present, unspecified whether belkofski or transplanted heart POCT GLUCOSE DEVICE Routine [...] OR Routine 07/24/2024 8:0 1 AM CDT POCT GLUCOSE DEVICE Routine 07/24/2024 6 :46 AM CDT B CHECK SAMPLE STAT 07/24/2024 6:45 AM CDT PREPARE RBC Timed 07/24/2024 6:36 AM CDT documented in this encounter Results * POCT glucose (08/11/2024 8:10 AM CDT) [facility] Signature Glucose, POC 100 70 - 199 mg/dL Blood 08/11/2024 8:10 AM CDT 08/11/2024 8:10 AM CDT Leonor Quan MD LAB POCT ORDERABLES - D EVICE Final Result Performing Organization Address [facility] Co de Phone Number GILLIAN ERAZO [facility] Department [place] [address] * eGFR (08/10/2024 10:33 PM CDT) eGFR [...] 08/10/2024 11:09 PM CDT us Kathrin Humphrey NP LAB BLOOD ORDERABLES Final Result Performing Organization Address [facility]/ZIP Co de Phone Number GILLIAN ERAZO [facility] Department [place] [address] * (ABNORMAL) CBC without differential (08/10/2024 10:33 PM CDT) [facility] [address] WBC 5.9 3.8 - 9.9 K/cumm Hgb 8.4(L) 13.0 - 17.5 g/dL [facility] Hct 26.9(L) 38.9 - 50.3 % [facility] Plt 187 150 - 400 K/cumm [facility] MPV 8.8(L) 9.1 - 12.3 fL [facility] RBC 3.32(L) 4.30 - 5.80 M/cumm [facility] MCV 81.0(L) 81.3 - 96.4 fL [facility] MCH 25.3(L) 27.1 - 33.3 pg [facility] MCHC 31.2(L) 32.3 - 35.7 g/dL [facility] RDW CV 16.3(H) 11.1 - 14.9 % [facility] RDW SD 47.8 35.7 - 48.1 fL [facility] NRBC abs 0.00 0.00 - 0.01 K/cumm [facility] Blood 08/10/2024 10:3 3 PM CDT 08/10/2024 11:10 PM CDT Kathrin Humphrey NP LAB BLOOD ORDERABLES Final Result [facility] Department [place] [address] * (ABNORMAL) Basic metabolic panel (08/10/2024 10:33 PM CDT) [facility] [address] Sodium 135 135 - 145 mmol/L Potassium, pl 4.6 3.3 - 4.9 mmol/L [facility] Chloride 100 97 - 110 mmol/L [facility] CO2 24 22 - 32 mmol/L [facility] Anion gap 11 2 - 15 mmol/L [facility] BUN 19 6 - 25 mg/dL [facility] Creatinine 0.83 0.80 - 1.30 mg/dL [facility] Glucose 97 70 - 199 mg/dL [facility] Comment: Interpretive Data Fasting glucose >/= 126 [...] 2022. Calcium 8.4(L) 8.5 - 10.3 mg/dL [facility] Blood 08/10/2024 10:3 3 PM CDT 08/10/2024 11:09 PM CDT Kathrin Humphrey NP LAB BLOOD ORDERABLES Final Result Performing Organization Address [facility]/ZIP Co de Phone Number [facility] Department [place] [address] * Magnesium (08/10/2024 10:33 PM CDT) Magnesium 2.2 1.4 - 2.5 mg/dL Blood 08/10/2024 10:3 3 PM CDT 08/10/2024 11:09 PM CDT Kathrin Humphrey SUPERVISOR PYROTECHNIC LOADING LAB BLOOD ORDERABLES Final Result [facility] Department [place] [address] * POCT glucose (08/10/2024 8:03 PM CDT) Glucose, POC 105 70 - 199 mg/dL Blood 08/10/2024 8:03 PM CDT 08/10/2024 8:03 PM CDT Leonor Quan MD LAB POCT ORDERABLES - D EVICE Final Result Performing Organization Address [facility] Co de Phone Number [facility] [place] [address] * POCT glucose (08/10/2024 4:57 PM CDT) Glucose, POC 108 70 - 199 mg/dL Blood 08/10/2024 4:57 PM CDT 08/10/2024 4:57 PM CDT us Leonor Quan MD LAB POCT ORDERABLES - D EVICE Final Result Performing Organization Address [facility] [place] [address] * POCT glucose (08/10/2024 12:04 PM CDT) Glucose, POC 105 70 - 199 mg/dL Blood 08/10/2024 12:0 4 PM CDT 08/10/2024 12:04 PM CDT Leonor Quan MD LAB POCT ORDERABLES - D EVICE Final Result Performing Organization Address [facility] Co de Phone Number [facility] [place] [address] * POCT glucose (08/10/2024 10:04 AM CDT) Glucose, POC 99 70 - 199 mg/dL Blood 08/10/2024 10:0 4 AM CDT 08/10/2024 10:04 AM CDT Leonor Quan MD LAB POCT ORDERABLES - D EVICE Final Result Performing Organization Address City/[facility] Co de Phone Number [facility] [place] [address] * POCT glucose (08/10/2024 8:13 AM CDT) Glucose, POC 73 70 - 199 mg/dL Blood 08/10/2024 8:13 AM CDT 08/10/2024 8:13 AM CDT us Leonor Quan MD LAB POCT ORDERABLES - D EVICE Final Result Performing Organization Address City/State/ZIP Co fl Phone Number GILLIAN BJ [facility] Department [place] [address] * eGFR (08/09/2024 9:51 PM CDT) eGFR [...] CDT 08/09/2024 10:19 PM CDT Kathrin Humphrey SUPERVISOR PYROTECHNIC LOADING LAB BLOOD ORDERABLES Final Result Performing Organization Address City/[facility]/ZIP Co de Phone Number [facility] Department [place] [address] * (ABNORMAL) CBC without differential (08/09/2024 9:51 PM CDT) WBC 6.5 3.8 - 9.9 K/cumm Hgb 8.5(L) 13.0 - 17.5 g/dL [facility] Hct 27.7(L) 38.9 - 50.3 % [facility] Plt 207 150 - 400 K/cumm [facility] MPV 8.7(L) 9.1 - 12.3 fL [facility] RBC 3.45(L) 4.30 - 5.80 M/cumm [facility] MCV 80.3(L) 81.3 - 96.4 fL [facility] MCH 24.6(L) 27.1 - 33.3 pg [facility] MCHC 30.7(L) 32.3 - 35.7 g/dL [facility] RDW CV 16.2(H) 11.1 - 14.9 % [facility] RDW SD 46.4 35.7 - 48.1 fL [facility] NRBC abs 0.00 0.00 - 0.01 K/cumm [facility] Blood 08/09/2024 9:51 PM CDT 08/09/2024 10:22 PM CDT Kathrin Humphrey SUPERVISOR PYROTECHNIC LOADING LAB BLOOD ORDERABLES Final Result [facility] [place] [address] * (ABNORMAL) Basic metabolic panel (08/09/2024 9:51 PM CDT) Sodium 135 135 - 145 mmol/L Potassium, pl 4.3 3.3 - 4.9 mmol/L [facility] Chloride 101 97 - 110 mmol/L [facility] CO2 24 22 - 32 mmol/L CRITICAL [facility] Anion gap 10 2 - 15 mmol/L [facility] BUN 23 6 - 25 mg/dL [facility] Creatinine 0.91 0.80 - 1.30 mg/dL [facility] Glucose 86 70 - 199 mg/dL [facility] Comment: Interpretive Data Fasting glucose >/= [...] 2022. Calcium 8.3(L) 8.5 - 10.3 mg/dL [facility] Blood 08/09/2024 9:51 PM CDT 08/09/2024 10:19 PM CDT Kathrin Humphrey SUPER[employer]OR [employer] LAB BLOOD ORDERABLES Final Result Performing Organization Address City/[facility]/ZIP Co de Phone Number [facility] Department [place] [address] * Magnesium (08/09/2024 9:51 PM CDT) [facility] [address] Magnesium 2.1 1.4 - 2.5 mg/dL Blood 08/09/2024 9:51 PM CDT 08/09/2024 10:19 PM CDT Kathrin Humphrey SUPERVISOR [employer]ING LAB BLOOD ORDERABLES Final Result Performing Organization Address City/[facility]/ZIP Co de Phone Number [facility] Department [place] [address] * POCT glucose (08/09/2024 9:33 PM CDT) Glucose, POC 97 70 - 199 mg/dL Blood 08/09/2024 9:33 PM CDT 08/09/2024 9:33 PM CDT Leonor Quan MD LAB POCT ORDERABLES - D EVICE Final Result Performing Organization Address [facility] Co de Phone Number [facility] [place] [address] * POCT glucose (08/09/2024 4:09 PM CDT) Glucose, POC 94 70 - 199 mg/dL Blood 08/09/2024 4:09 PM CDT 08/09/2024 4:09 PM CDT Leonor Quan MD LAB POCT ORDERABLES - D EVICE Final Result Performing Organization Address [facility] Co de Phone Number [facility] [place] [address] * POCT glucose (08/09/2024 12:48 PM CDT) Glucose, POC 134 70 - 199 mg/dL Blood 08/09/2024 12:4 8 PM CDT 08/09/2024 12:48 PM CDT Leonor Quan MD LAB POCT ORDERABLES - D EVICE Final Result Performing Organization Address City/[facility] Co de Phone Number [facility] [place] [address] * POCT glucose (08/09/2024 10:47 AM CDT) Glucose, POC 124 70 - 199 mg/dL Blood 08/09/2024 10:4 7 AM CDT 08/09/2024 10:47 AM CDT Leonor Quan MD LAB POCT ORDERABLES - D EVICE Final Result Performing Organization Address [facility] Co de Phone Number [facility] Department [place] [address] * POCT glucose (08/09/2024 8:13 AM CDT) Pathologist [facility] Glucose, POC 101 70 - 199 mg/dL Blood 08/09/2024 8:13 AM CDT 08/09/2024 8:13 AM CDT Leonor Quan MD LAB POCT ORDERABLES - D EVICE Final Result Performing Organization Address [facility] de Phone Number [facility]IAN [facility] Department [place] [address] * eGFR (08/08/2024 10:02 PM CDT) Pathologist [facility] eGFR 83 >=60 mL/min/1. 73 m2 Comment: [...] CDT 08/08/2024 10:47 PM CDT Kathrin Humphrey SUPERVISOR [employer]ING LAB BLOOD ORDERABLES Final Result Performing Organization Address [facility] [place] [address] * Type and screen (08/08/2024 10:02 PM CDT) [facility] [address] Janell, indirect Negative ABO Rh O Positive [facility] Blood 08/08/2024 10:0 2 PM CDT 08/08/2024 11:00 PM CDT Narrative [facility] - 08/08/2024 11:52 PM CDT Has the patient had Daratumumab or Isatuximab in the past 6 months?->Unknown Kathrin Humphrey SUPERVISOR [employer]ING LAB BLOOD BANK TEST ORDERA BLES Final Result Performing Organization Address [facility] de Phone Number [facility] [place] [address] * (ABNORMAL) CBC without differential (08/08/2024 10:02 PM CDT) [facility] [address] WBC 8.0 3.8 - 9.9 K/cumm Hgb 8.4(L) 13.0 - 17.5 g/dL [facility] Hct 26.8(L) 38.9 - 50.3 % [facility] Plt 206 150 - 400 K/cumm [facility] MPV 9.0(L) 9.1 - 12.3 fL [facility] RBC 3.34(L) 4.30 - 5.80 M/cumm [facility] MCV 80.2(L) 81.3 - 96.4 fL [facility] MCH 25.1(L) 27.1 - 33.3 pg [facility] MCHC 31.3(L) 32.3 - 35.7 g/dL [facility] RDW CV 15.9(H) 11.1 - 14.9 % [facility] RDW SD 45.8 35.7 - 48.1 fL [facility] NRBC abs 0.00 0.00 - 0.01 K/cumm [facility] Blood 08/08/2024 10:0 2 PM CDT 08/08/2024 10:47 PM CDT us Kathrin Humphrey SUPERVISOR [employer]ING LAB BLOOD ORDERABLES Final Result [facility] Department [place] [address] * (ABNORMAL) Basic metabolic panel (08/08/2024 10:02 PM CDT) Sodium 133(L) 135 - 145 mmol/L Potassium, pl 3.5 3.3 - 4.9 mmol/L [facility] Chloride 99 97 - 110 mmol/L [facility] CO2 24 22 - 32 mmol/L [facility] Anion gap 10 2 - 15 mmol/L [facility] BUN 26(H) 6 - 25 mg/dL [facility] Creatinine 0.97 0.80 - 1.30 mg/dL [facility] Glucose 138 70 - 199 mg/dL [facility] Comment: Interpretive Data Fasting glucose >/= [...] 2022. Calcium 8.0(L) 8.5 - 10.3 mg/dL [facility] Blood 08/08/2024 10:0 2 PM CDT 08/08/2024 10:47 PM CDT Result [facility] us Kathrin Humphrey SUPERVISOR [employer]ING LAB BLOOD ORDERABLES Final Result Performing Organization Address [facility] de Phone Number [facility] [place] [address] * Magnesium (08/08/2024 10:02 PM CDT) Magnesium 1.8 1.4 - 2.5 mg/dL Blood 08/08/2024 10:0 2 PM CDT 08/08/2024 10:47 PM CDT Result [facility] Kathrin Humphrey SUPERVISOR PYR[employer]CH[employer]ADING LAB BLOOD ORDERABLES Final Result Performing Organization Address [facility] de Phone Number [facility] [place] [address] * POCT glucose (08/08/2024 7:07 PM CDT) Glucose, POC 139 70 - 199 mg/dL Blood 08/08/2024 7:07 PM CDT 08/08/2024 7:07 PM CDT Result [facility] Leonor Quan MD LAB POCT ORDERABLES - D EVICE Final Result Performing Organization Address [facility] [place] [address] * POCT glucose (08/08/2024 5:32 PM CDT) Glucose, POC 113 70 - 199 mg/dL Blood 08/08/2024 5:32 PM CDT 08/08/2024 5:32 PM CDT Result [facility] Leonor Quan MD LAB POCT ORDERABLES - D EVICE Final Result Performing Organization Address [facility] de Phone [facility] [place] [address] * POCT glucose (08/08/2024 11:27 AM CDT) Glucose, POC 166 70 - 199 mg/dL Blood 08/08/2024 11:2 7 AM CDT 08/08/2024 11:27 AM CDT Leonor Quan MD LAB POCT ORDERABLES - D EVICE Final Result Performing Organization Address [facility] de Phone Number [facility] [place] [address] * POCT glucose (08/08/2024 7:37 AM CDT) Pathologist [facility] Glucose, POC 104 70 - 199 mg/dL Blood 08/08/2024 7:37 AM CDT 08/08/2024 7:37 AM CDT Leonor Quan MD LAB POCT ORDERABLES - D EVICE Final Result Performing Organization Address [facility] de Phone Number [facility] [place] [address] * eGFR (08/07/2024 10:28 PM CDT) eGFR [...] ORDERABLES Fi nal Result Performing Organization Address City/[facility] Co de Phone Number [facility] Department [place] [employer] [place] [address] * Phosphorus (08/07/2024 10:28 PM CDT) Phosphorus, pl 2.8 2.3 - 4.5 mg/dL Blood 08/07/2024 10:2 8 PM CDT 08/07/2024 10:46 PM CDT Leonor Quan MD LAB BLOOD ORDERABLES Fi nal Result Performing Organization Address City/[facility] Co de Phone Number [facility] Department [place] [employer] [place] [address] * Magnesium (08/07/2024 10:28 PM CDT) Magnesium 1.8 1.4 - 2.5 mg/dL Blood 08/07/2024 10:2 8 PM CDT 08/07/2024 10:46 PM CDT Leonor Quan MD LAB BLOOD ORDERABLES Fi nal Result [facility] [place] [place] [address] * (ABNORMAL) Basic metabolic panel (08/07/2024 10:28 PM CDT) Pathologist [facility] Sodium 135 135 - 145 mmol/L Potassium, pl 3.4 3.3 - 4.9 mmol/L [facility] Chloride 99 97 - 110 mmol/L [facility] CO2 27 22 - 32 mmol/L [facility] Anion gap 9 2 - 15 mmol/L [facility] BUN 24 6 - 25 mg/dL [facility] Creatinine 1.01 0.80 - 1.30 mg/dL [facility] Glucose 113 70 - 199 mg/dL [facility] Comment: Interpretive Data Fasting glucose >/= [...] 2022. Calcium 8.3(L) 8.5 - 10.3 mg/dL [facility] Blood 08/07/2024 10:2 8 PM CDT 08/07/2024 10:46 PM CDT Leonor Quan MD LAB BLOOD ORDERABLES Fi nal Result Performing Organization Address [facility]/ZIP Co de Phone Number [facility] Department [place] [employer] [place] [address] * (ABNORMAL) CBC without differential (08/07/2024 10:28 PM CDT) Pathologist [facility] WBC 7.0 3.8 - 9.9 K/cumm Hgb 7.5(L) 13.0 - 17.5 g/dL [facility] Hct 23.7(L) 38.9 - 50.3 % [facility] Plt 197 150 - 400 K/cumm [facility] MPV 8.9(L) 9.1 - 12.3 fL [facility] RBC 2.96(L) 4.30 - 5.80 M/cumm [facility] MCV 80.1(L) 81.3 - 96.4 fL [facility] MCH 25.3(L) 27.1 - 33.3 pg [facility] MCHC 31.6(L) 32.3 - 35.7 g/dL [facility] RDW CV 16.0(H) 11.1 - 14.9 % [facility] RDW SD 46.5 35.7 - 48.1 fL [facility] NRBC abs 0.00 0.00 - 0.01 K/cumm [facility] Blood 08/07/2024 10:2 8 PM CDT 08/07/2024 10:46 PM CDT Leonor Quan MD LAB BLOOD ORDERABLES Fi nal Result Performing Organization Address City/[facility]/ZIP Co de Phone Number [facility] Department [place] [place] [address] * POCT glucose (08/07/2024 7:23 PM CDT) Glucose, POC 144 70 - 199 mg/dL Blood 08/07/2024 7:23 PM CDT 08/07/2024 7:23 PM CDT Leonor Quan MD LAB POCT ORDERABLES - D EVICE Final Result Performing Organization Address [facility]/ZIP Co de Phone Number [facility] [place] [address] * POCT glucose (08/07/2024 4:46 PM CDT) Glucose, POC 147 70 - 199 mg/dL Blood 08/07/2024 4:46 PM CDT 08/07/2024 4:46 PM CDT Leonor Quan MD LAB POCT ORDERABLES - D EVICE Final Result Performing Organization Address [facility] de Phone Number [facility] [place] [address] * POCT glucose (08/07/2024 11:53 AM CDT) Glucose, POC 142 70 - 199 mg/dL Blood 08/07/2024 11:5 3 AM CDT 08/07/2024 11:53 AM CDT Leonor Quan MD LAB POCT ORDERABLES - D EVICE Final Result Performing Organization Address [facility] de Phone Number [facility] [place] [address] * POCT glucose (08/07/2024 7:45 AM CDT) Pathologist [facility] Glucose, POC 129 70 - 199 mg/dL Blood 08/07/2024 7:45 AM CDT 08/07/2024 7:45 AM CDT Leonor Quan MD LAB POCT ORDERABLES - D EVICE Final Result Performing Organization Address [facility] de Phone Number [facility] [place] [address] * eGFR (08/06/2024 8:39 PM CDT) eGFR [...] ORDERABLES Fi nal Result Performing Organization Address [facility] de Phone Number GILLIAN [facility] Department [place] [employer] [place] [address] * Phosphorus (08/06/2024 8:39 PM CDT) Phosphorus, pl 3.3 2.3 - 4.5 mg/dL Blood 08/06/2024 8:39 PM CDT 08/06/2024 9:36 PM CDT Leonor Quan MD LAB BLOOD ORDERABLES Fi nal Result Performing Organization Address [facility] de Phone Number [facility]ILLIAN [facility] Department [place] [address] * Magnesium (08/06/2024 8:39 PM CDT) Pathologist [facility] Magnesium 2.0 1.4 - 2.5 mg/dL Blood 08/06/2024 8:39 PM CDT 08/06/2024 9:36 PM CDT Leonor Quan MD LAB BLOOD ORDERABLES Fi nal Result Performing Organization Address City/[facility]/ZIP Co de Phone Number [facility] Department [place] [address] * (ABNORMAL) Basic metabolic panel (08/06/2024 8:39 PM CDT) [facility] [address] Sodium 135 135 - 145 mmol/L Potassium, pl 3.3 3.3 - 4.9 mmol/L [facility] Chloride 96(L) 97 - 110 mmol/L [facility] CO2 27 22 - 32 mmol/L [facility] Anion gap 12 2 - 15 mmol/L [facility] BUN 25 6 - 25 mg/dL [facility] Creatinine 1.01 0.80 - 1.30 mg/dL [facility] Glucose 87 70 - 199 mg/dL [facility] Comment: Interpretive Data Fasting glucose >/= [...] 2022. Calcium 8.5 8.5 - 10.3 mg/dL [facility] Blood 08/06/2024 8:39 PM CDT 08/06/2024 9:36 PM CDT Leonor Quan MD LAB BLOOD ORDERABLES Fi nal Result Performing Organization Address City/[facility] Co de Phone Number [facility] Department [place] [address] * (ABNORMAL) CBC without differential (08/06/2024 8:39 PM CDT) [facility] [address] WBC 7.9 3.8 - 9.9 K/cumm Hgb 7.8(L) 13.0 - 17.5 g/dL [facility] Hct 24.4(L) 38.9 - 50.3 % [facility] Plt 214 150 - 400 K/cumm [facility] MPV 9.4 9.1 - 12.3 fL [facility] RBC 3.04(L) 4.30 - 5.80 M/cumm [facility] MCV 80.3(L) 81.3 - 96.4 fL [facility] MCH 25.7(L) 27.1 - 33.3 pg [facility] MCHC 32.0(L) 32.3 - 35.7 g/dL [facility] RDW CV 16.0(H) 11.1 - 14.9 % [facility] RDW SD 46.3 35.7 - 48.1 fL [facility] NRBC abs 0.00 0.00 - 0.01 K/cumm [facility] Blood 08/06/2024 8:39 PM CDT 08/06/2024 9:36 PM CDT Leonor Quan MD LAB BLOOD ORDERABLES Fi nal Result [facility] Department [place] [address] * POCT glucose (08/06/2024 8:22 PM CDT) [facility] [address] Glucose, POC 101 70 - 199 mg/dL Blood 08/06/2024 8:22 PM CDT 08/06/2024 8:22 PM CDT Leonor Quan MD LAB POCT ORDERABLES - D EVICE Final Result Performing Organization Address City/[facility] Co de Phone Number [facility] [place] [address] * POCT glucose (08/06/2024 4:32 PM CDT) Glucose, POC 171 70 - 199 mg/dL Blood 08/06/2024 4:32 PM CDT 08/06/2024 4:32 PM CDT us Leonor Quan MD LAB POCT ORDERABLES - D EVICE Final Result Performing Organization Address [facility] Co de Phone Number [facility] [place] [address] * POCT glucose (08/06/2024 12:15 PM CDT) Glucose, POC 198 70 - 199 mg/dL Blood 08/06/2024 12:1 5 PM CDT 08/06/2024 12:15 PM CDT us Leonor Quan MD LAB POCT ORDERABLES - D EVICE Final Result Performing Organization Address [facility] Co de Phone Number [facility] [place] [place] [address] * Potassium, whole blood (08/06/2024 9:59 AM CDT) Potassium, bld 3.6 3.3 - 4.9 mmol/L Blood 08/06/2024 9:59 AM CDT 08/06/2024 10:08 AM CDT us Va Griffith NP LAB BLOOD ORDERABLES F inal Result Performing Organization Address City/[facility]/ZIP Co de Phone Number [facility] [place] [address] * POCT glucose (08/06/2024 7:51 AM CDT) Glucose, POC 148 70 - 199 mg/dL Blood 08/06/2024 7:51 AM CDT 08/06/2024 7:51 AM CDT us Leonor Quan MD LAB POCT ORDERABLES - D EVICE Final Result Performing Organization Address City/State/ZIP Co fl Phone Number [facility]ILLIAN [facility] Department [place] [address] * eGFR (08/05/2024 9:41 PM CDT) eGFR 72 >=60 mL/min/1. 73 [...] ORDERABLES Fi nal Result Performing Organization Address [facility] [place] [address] * Type and screen (08/05/2024 9:41 PM CDT) Jaenll, indirect Negative ABO Rh O Positive [facility] Blood 08/05/2024 9:41 PM CDT 08/05/2024 10:32 PM CDT Narrative [facility] - 08/05/2024 11:35 PM CDT Has the patient had Daratumumab or Isatuximab in the past 6 months?->Unknown Myai Richardson NP LAB BLOOD BANK T EST ORDERABLES Final Result Performing Organization Address [facility] de Phone Number [facility] [place] [address] * Phosphorus (08/05/2024 9:41 PM CDT) Pathologist [facility] Phosphorus, pl 3.6 2.3 - 4.5 mg/dL Blood 08/05/2024 9:41 PM CDT 08/05/2024 10:26 PM CDT Leonor Quan MD LAB BLOOD ORDERABLES Fi nal Result Performing Organization Address [facility] de Phone Number [facility] [place] [address] * Magnesium (08/05/2024 9:41 PM CDT) Pathologist [facility] Magnesium 2.0 1.4 - 2.5 mg/dL Blood 08/05/2024 9:41 PM CDT 08/05/2024 10:26 PM CDT Leonor Quan MD LAB BLOOD ORDERABLES Fi nal Result [facility] Department [place] [address] * (ABNORMAL) Basic metabolic panel (08/05/2024 9:41 PM CDT) Pathologist [facility] Sodium 136 135 - 145 mmol/L Potassium, pl 3.0(L) 3.3 - 4.9 mmol/L [facility] Chloride 99 97 - 110 mmol/L [facility] CO2 28 22 - 32 mmol/L [facility] Anion gap 9 2 - 15 mmol/L [facility] BUN 30(H) 6 - 25 mg/dL [facility] Creatinine 1.09 0.80 - 1.30 mg/dL [facility] Glucose 114 70 - 199 mg/dL [facility] Comment: Interpretive Data Fasting glucose >/= [...] 2022. Calcium 8.5 8.5 - 10.3 mg/dL [facility] Blood 08/05/2024 9:41 PM CDT 08/05/2024 10:26 PM CDT Leonor Quan MD LAB BLOOD ORDERABLES Fi nal Result [facility] Department [place] [address] * (ABNORMAL) CBC without differential (08/05/2024 9:41 PM CDT) Pathologist [facility] WBC 9.1 3.8 - 9.9 K/cumm Hgb 7.9(L) 13.0 - 17.5 g/dL [facility] Hct 25.4(L) 38.9 - 50.3 % [facility] Plt 238 150 - 400 K/cumm [facility] MPV 9.4 9.1 - 12.3 fL [facility] RBC 3.13(L) 4.30 - 5.80 M/cumm [facility] MCV 81.2(L) 81.3 - 96.4 fL [facility] MCH 25.2(L) 27.1 - 33.3 pg [facility] MCHC 31.1(L) 32.3 - 35.7 g/dL [facility] RDW CV 16.5(H) 11.1 - 14.9 % [facility] RDW SD 48.0 35.7 - 48.1 fL [facility] NRBC abs 0.03(H) 0.00 - 0.01 K/cumm [facility] Blood 08/05/2024 9:41 PM CDT 08/05/2024 10:26 PM CDT us Leonor Quan MD LAB BLOOD ORDERABLES Fi nal Result Performing Organization Address City/[facility]/ZIP Co de Phone Number [facility] Department [place] [address] * POCT glucose (08/05/2024 9:23 PM CDT) [facility] [address] Glucose, POC 136 70 - 199 mg/dL Blood 08/05/2024 9:23 PM CDT 08/05/2024 9:23 PM CDT Leonor Quan MD LAB POCT ORDERABLES - D EVICE Final Result Performing Organization Address [facility]/ZIP Co de Phone Number [facility] [place] [address] * POCT glucose (08/05/2024 3:55 PM CDT) Glucose, POC 150 70 - 199 mg/dL Blood 08/05/2024 3:55 PM CDT 08/05/2024 3:55 PM CDT Leonor Quan MD LAB POCT ORDERABLES - D EVICE Final Result Performing Organization Address [facility] Co de Phone Number [facility] Department [place] [address] * POCT glucose (08/05/2024 12:22 PM CDT) Glucose, POC 130 70 - 199 mg/dL Blood 08/05/2024 12:2 2 PM CDT 08/05/2024 12:22 PM CDT Leonor Quan MD LAB POCT ORDERABLES - D EVICE Final Result Performing Organization Address [facility] de Phone Number [facility] Department [place] [address] * X-ray chest 2 views (08/05/2024 9:45 [...] size. Electronically signed by: Razia Schroeder M.D. Leonor Quan MD IMG XR PROCEDURES Final Result * POCT glucose (08/05/2024 8:34 AM CDT) Pathologist [facility] Glucose, POC 123 70 - 199 mg/dL Blood 08/05/2024 8:34 AM CDT 08/05/2024 8:34 AM CDT Leonor Quan MD LAB POCT ORDERABLES - D EVICE Final Result Performing Organization Address City/State/[facility] Phone Number [facility] Department [place] [address] * eGFR (08/04/2024 9:28 PM CDT) Pathologist [facility] eGFR 71 >=60 mL/min/1. 73 m2 Comment: [...] MD LAB BLOOD ORDERABLES Fi nal Result [facility] [place] [place] [address] * Phosphorus (08/04/2024 9:28 PM CDT) Phosphorus, pl 4.4 2.3 - 4.5 mg/dL Blood 08/04/2024 9:28 PM CDT 08/04/2024 10:05 PM CDT Leonor Quan MD LAB BLOOD ORDERABLES Fi nal Result Performing Organization Address City/[facility]/ZIP Co de Phone Number [facility] [place] [employer] [place] [address] * Magnesium (08/04/2024 9:28 PM CDT) Magnesium 2.1 1.4 - 2.5 mg/dL Blood 08/04/2024 9:28 PM CDT 08/04/2024 10:05 PM CDT Leonor Qaun MD LAB BLOOD ORDERABLES Fi nal Result [facility] [place] [address] * (ABNORMAL) Basic metabolic panel (08/04/2024 9:28 PM CDT) Pathologist [facility] Sodium 139 135 - 145 mmol/L Potassium, pl 4.5 3.3 - 4.9 mmol/L [facility] Comment:Hemolyzed; Potassium value may be falsely elevated by as much as 0.3-0.5 mmol/L. Suggest redraw and reanalysis. Chloride 101 97 - 110 mmol/L [facility] CO2 25 22 - 32 mmol/L [facility] Anion gap 13 2 - 15 mmol/L [facility] BUN 33(H) 6 - 25 mg/dL [facility] Creatinine 1.10 0.80 - 1.30 mg/dL [facility] Glucose 114 70 - 199 mg/dL [facility] Comment: Interpretive Data Fasting glucose >/= [...] 2022. Calcium 8.5 8.5 - 10.3 mg/dL [facility] Blood 08/04/2024 9:28 PM CDT 08/04/2024 10:05 PM CDT Leonor Quan MD LAB BLOOD ORDERABLES Fi nal Result [facility] Department of Laboratories [place], [place] [id number] * (ABNORMAL) CBC without differential (08/04/2024 9:28 PM CDT) [facility] [address] WBC 10.7(H) 3.8 - 9.9 K/cumm Hgb 7.9(L) 13.0 - 17.5 g/dL [facility] Hct 25.1(L) 38.9 - 50.3 % [facility] Plt 191 150 - 400 K/cumm [facility] MPV 9.8 9.1 - 12.3 fL [facility] RBC 3.07(L) 4.30 - 5.80 M/cumm [facility] MCV 81.8 81.3 - 96.4 fL [facility] MCH 25.7(L) 27.1 - 33.3 pg [facility] MCHC 31.5(L) 32.3 - 35.7 g/dL [facility] RDW CV 16.5(H) 11.1 - 14.9 % [facility] RDW SD 48.9(H) 35.7 - 48.1 fL [facility] NRBC abs 0.04(H) 0.00 - 0.01 K/cumm [facility] Blood 08/04/2024 9:28 PM CDT 08/04/2024 10:06 PM CDT Leonor Quan MD LAB BLOOD ORDERABLES Fi nal Result [facility] Department [place] [employer] [place] [address] * POCT glucose (08/04/2024 8:22 PM CDT) Glucose, POC 141 70 - 199 mg/dL Blood 08/04/2024 8:22 PM CDT 08/04/2024 8:22 PM CDT Leonor Quan MD LAB POCT ORDERABLES - D EVICE Final Result [facility] [place] [place] [address] * POCT glucose (08/04/2024 4:56 PM CDT) Glucose, POC 110 70 - 199 mg/dL Blood 08/04/2024 4:56 PM CDT 08/04/2024 4:56 PM CDT us Leonor Quan MD LAB POCT ORDERABLES - D EVICE Final Result [facility] [place] [address] * X-ray chest 1 view (Portable) (08/04/2024 [...] Electronically signed by: Serafin Terrell M.D. 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 3) ICM -LVEF 40-50% pre op, [...] ?? Images were taken in SHELL and [place]WAITI views to ensure appropriate lead placement. ??The [...] device programming: - RA Lead (#[id number] S/N [id number]): Sensing 2.5 mV, Pacing threshold 0.75 V at 0.4 ms, Imp 608 Ohm - RV Lead (#[id number]): Sensing 6.6 mV, Pacing threshold 0.75 V at 0.4 ms Imp 456 Ohm - LV Lead (#[id number] S/N [id number]): Sensing NA mV, Pacing threshold 1.0 V at 0.4 ms, Imp 418 Ohm - Device: ??IT DESKTOP SUPPORT TECHNICIAN-D ([employer] HF Quad #[id number] S/N [id number]), programmed DDD 60-130 BPM - Zones: VF> [...] days post-discharge Lucy Meyer MD Clinical Cardiac Lpta us Altagracia Roman SUPERVISOR PYROTECHNIC LOADING CV ELECTROPHYSIOLOGY PROCS F inal Result * POCT glucose (08/04/2024 9:44 AM CDT) [facility] Signature Glucose, POC 111 70 - 199 mg/dL Blood 08/04/2024 9:44 AM CDT 08/04/2024 9:44 AM CDT us Leonor Quan MD LAB POCT ORDERABLES - D EVICE Final Result [facility] Department [place] [address] * POCT glucose (08/04/2024 7:25 AM CDT) Glucose, POC 104 70 - 199 mg/dL Blood 08/04/2024 7:25 AM CDT 08/04/2024 7:25 AM CDT Leonor Quan MD LAB POCT ORDERABLES - D EVICE Final Result Performing Organization Address City/State/[facility] Co de Phone Number [facility] [place] [address] * Critical Care (08/04/2024 7:15 AM CDT) [...] plan with the patient's team and other medical/reporting process consultant staff. This time was in addition [...] laurent POC 42 40 - 50 mmHg [facility] pO2, laurent POC 44 mmHg [facility] Na, POC 137 135 - 145 mmol/L [facility] K POC 4.8 3.3 - 4.9 mmol/L [facility] Comment: Interpretive Data Not all point of care methods assess for hemolysis. Confirm with instrument and retest K+ if not consistent with clinical signs and symptoms. Current Interpretive Data was last revised on 2024. Cl, POC 108 97 - 110 mmol/L [facility] Ionized Ca, POC 4.97 4.50 - 5.10 mg/dL [facility] Glucose, POC 106 70 - 199 mg/dL [facility] Lactate, POC 1.2 0.7 - 2.2 mmol/L [facility] O2 Sat, Laurent POC (Aliza) 68 % [facility] Base excess, POC -0.3 mmol/L [facility] HCO3, Laurent POC 25 20 - 30 mmol/L [facility] Hct, POC 25.0(L) 41.4 - 51.6 % [facility] Total Hb, POC 8.3(L) 13.8 - 17.2 g/dL [facility] Blood 08/04/2024 4:13 AM CDT 08/04/2024 4:13 AM CDT us Leonor Quan MD LAB POCT ORDERABLES - D EVICE Final Result [facility] [place] [address] * eGFR (08/03/2024 11:02 PM CDT) [facility] [address] eGFR 68 >=60 mL/min/1. 73 m2 Comment: [...] PM CDT 08/03/2024 11:28 PM CDT us Amber KUHN LAB BLOOD ORDERABLES Fi nal Result [facility] [place], [place] [id number] * Calcium, ionized (08/03/2024 11:02 PM CDT) Calcium, Ionized 4.59 4.50 - 5.10 mg/dL Blood 08/03/2024 11:0 2 PM CDT 08/03/2024 11:28 PM CDT us Leonor Quan MD LAB BLOOD ORDERABLES Ed ited Result - Final [facility] [place] [address] * Phosphorus (08/03/2024 11:02 PM CDT) Phosphorus, pl 4.5 2.3 - 4.5 mg/dL Blood 08/03/2024 11:0 2 PM CDT 08/03/2024 11:28 PM CDT Leonor Quan MD LAB BLOOD ORDERABLES Fi nal Result Performing Organization Address City/[facility] Co de Phone Number [facility] [place] [address] * Magnesium (08/03/2024 11:02 PM CDT) Pathologist [facility] Magnesium 2.1 1.4 - 2.5 mg/dL Blood 08/03/2024 11:0 2 PM CDT 08/03/2024 11:28 PM CDT Leonor Quan MD LAB BLOOD ORDERABLES Fi nal Result Performing Organization Address [facility] de Phone Number [facility] [place] [address] * (ABNORMAL) Basic metabolic panel (08/03/2024 11:02 PM CDT) [facility] [address] Sodium 137 135 - 145 mmol/L Potassium, pl 4.3 3.3 - 4.9 mmol/L [facility] Chloride 105 97 - 110 mmol/L [facility] CO2 24 22 - 32 mmol/L [facility] Anion gap 8 2 - 15 mmol/L [facility] BUN 34(H) 6 - 25 mg/dL [facility] Creatinine 1.15 0.80 - 1.30 mg/dL [facility] Glucose 110 70 - 199 mg/dL [facility] Comment: Interpretive Data Fasting glucose >/= [...] 2022. Calcium 8.8 8.5 - 10.3 mg/dL [facility] Blood 08/03/2024 11:0 2 PM CDT 08/03/2024 11:28 PM CDT Leonor Quan MD LAB BLOOD ORDERABLES Fi nal Result Performing Organization Address [facility] de Phone Number [facility] [place] [address] * (ABNORMAL) CBC without differential (08/03/2024 11:02 PM CDT) WBC 12.3(H) 3.8 - 9.9 K/cumm Hgb 7.7(L) 13.0 - 17.5 g/dL [facility] Hct 23.7(L) 38.9 - 50.3 % [facility] Plt 189 150 - 400 K/cumm [facility] MPV 9.8 9.1 - 12.3 fL [facility] RBC 2.88(L) 4.30 - 5.80 M/cumm [facility] MCV 82.3 81.3 - 96.4 fL [facility] MCH 26.7(L) 27.1 - 33.3 pg [facility] MCHC 32.5 32.3 - 35.7 g/dL [facility] RDW CV 16.4(H) 11.1 - 14.9 % [facility] RDW SD 49.1(H) 35.7 - 48.1 fL [facility] NRBC abs 0.06(H) 0.00 - 0.01 K/cumm [facility] Blood 08/03/2024 11:0 2 PM CDT 08/03/2024 11:40 PM CDT Leonor Quan MD LAB BLOOD ORDERABLES Fi nal Result Performing Organization Address [facility]/ZIP Co de Phone Number [facility] [place] [address] * POCT glucose (08/03/2024 8:28 PM CDT) Pathologist [facility] Glucose, POC 116 70 - 199 mg/dL Blood 08/03/2024 8:28 PM CDT 08/03/2024 8:28 PM CDT Leonor Quan MD LAB POCT ORDERABLES - D EVICE Final Result Performing Organization Address [facility] Co de Phone Number [facility] [place] [address] * POCT glucose (08/03/2024 5:33 PM CDT) [facility] [address] [facility] Glucose, POC 113 70 - 199 mg/dL Blood 08/03/2024 5:33 PM CDT 08/03/2024 5:33 PM CDT Leonor Quan MD LAB POCT ORDERABLES - D EVICE Final Result Performing Organization Address [facility] de Phone Number [facility] [place] [place] [address] * Potassium, whole blood (08/03/2024 4:20 PM CDT) [facility] [address] Potassium, bld 3.3 3.3 - 4.9 mmol/L Blood 08/03/2024 4:20 PM CDT 08/03/2024 4:30 PM CDT Leonor Quan MD LAB BLOOD ORDERABLES Fi nal Result Performing Organization Address [facility] de Phone Number [facility] [place] [place] [address] * TRANSTHORACIC ECHO (TTE) LIMITED/FOLLOW UP W LTD DOPPLER/CF W CONTRAST (08/03/2024 3:57 PM CDT) [facility] [address] LV EF 26 % CARDIOREPORT Anatomical Region Laterality Modality Ultrasound 08/03/2024 3:15 PM CDT Narrative 08/03/2024 4:04 PM CDT Patient name: Abiel Fink Date of test: 08/03/2024 Type of test: [facility] #: 0 Date of : 1950 (M) Web Publisher: Jojo Chapa RDCS Referring Physician: SHANTAL ELIZABETH MD Contrast Agent: 0.8 ml Optison Administered, (2.2 ml wasted). Contrast Administered by: MANAGER TECHNICAL SUPPORT Supervised/Interpreted by: Eric Roberts MD Diagnosis: chf Location: [facility] Reason for test: Evaluate LV prior to [...] 2=Hypo 3=Akinetic 4=Dyskin./Aneurysm 0=Not visualized) Parasternal Long [place]:MAS=2 BAS=2 MIL=2 LORNE=2 Parasternal Short [place]:MAS=2 MIS=2 TX=2 MIL=2 MAL=2 MA=2 Apical 4 Chambers:=2 MIS=2 BIS=2 BAL=2 MAL=2 AL=2 AC=2 Apical 2 Chambers:AI=2 TX=2 BI=2 BA=2 MA=2 AA=2 AC=2 LV Global [...] MD By signing this report, the attending commercial kitchen service technician certifies that he or she has personally supervised and interpreted the echocardiogram and has reviewed and or edited and agrees with the written comments contained within the report. Procedure Note Eric Roberts MD PhD - 08/03/2024 Patient name: Abiel Fink Date of test: 08/03/2024 Type of test: [facility] #: 0 Date of : 1950 (M) Web Publisher: Jojo Chapa [facility] Referring Physician: SHANTAL ELIZABETH MD Contrast Agent: 0.8 ml Optison Administered, (2.2 ml wasted). Contrast Administered by: MANAGER TECHNICAL SUPPORT Supervised/Interpreted by: Eric Roberts MD Diagnosis: chf Location: [facility] Reason for test: Evaluate LV prior to [...] 2=Hypo 3=Akinetic 4=Dyskin./Aneurysm 0=Not visualized) Parasternal Long [place]:MAS=2 BAS=2 MIL=2 LORNE=2 Parasternal Short [place]:MAS=2 MIS=2 TX=2 MIL=2 MAL=2 MA=2 Apical 4 Chambers:=2 MIS=2 BIS=2 BAL=2 MAL=2 AL=2 AC=2 Apical 2 Chambers:AI=2 TX=2 BI=2 BA=2 MA=2 AA=2 AC=2 LV Global [...] MD By signing this report, the attending commercial kitchen service technician certifies that he or she has personally [...] Quan MD LAB POCT ORDERABLES - D DEANICE Final Result [facility] Department [place] [address] * Potassium, whole blood (08/03/2024 8:13 AM CDT) Potassium, bld 3.7 3.3 - 4.9 mmol/L Blood 08/03/2024 8:13 AM CDT 08/03/2024 8:19 AM CDT us Leonor Quan MD LAB BLOOD ORDERABLES Fi nal Result Performing Organization Address City/[facility] Co de Phone Number [facility] Department [place] [address] * POCT glucose (08/03/2024 8:10 AM CDT) [facility] Signature Glucose, POC 152 70 - 199 mg/dL Blood 08/03/2024 8:10 AM CDT 08/03/2024 8:10 AM CDT us Leonor Quan MD LAB POCT ORDERABLES - D EVICE Final Result Performing Organization Address [facility] Co de Phone Number [facility] [place] [address] * Critical Care (08/03/2024 7:13 AM CDT) [...] plan with the ICU team and other medical/reporting process consultant staff, making frequent assessments and decisions [...] Potassium, whole blood (08/03/2024 5:15 AM CDT) [facility] [address] Potassium, bld 4.0 3.3 - 4.9 mmol/L Blood 08/03/2024 5:15 AM CDT 08/03/2024 5:23 AM CDT us Leonor Quan MD LAB BLOOD ORDERABLES Fi nal Result [facility] [place] [address] * (ABNORMAL) CBC without differential (08/03/2024 5:09 AM CDT) [facility] [address] WBC 12.1(H) 3.8 - 9.9 K/cumm Hgb 7.9(L) 13.0 - 17.5 g/dL [facility] Hct 24.1(L) 38.9 - 50.3 % [facility] Plt 189 150 - 400 K/cumm [facility] MPV 10.3 9.1 - 12.3 fL [facility] RBC 2.97(L) 4.30 - 5.80 M/cumm [facility] MCV 81.1(L) 81.3 - 96.4 fL [facility] MCH 26.6(L) 27.1 - 33.3 pg [facility] MCHC 32.8 32.3 - 35.7 g/dL [facility] RDW CV 16.6(H) 11.1 - 14.9 % [facility] RDW SD 48.1 35.7 - 48.1 fL [facility] NRBC abs 0.09(H) 0.00 - 0.01 K/cumm [facility] Blood 08/03/2024 5:09 AM CDT 08/03/2024 5:22 AM CDT Erin Hawkins NP LAB BLOOD ORDERABLES Fi nal Result Performing Organization Address [facility] Phone Number [facility] [place] [address] * (ABNORMAL) Urinalysis, microscopic only (08/03/2024 5:01 AM CDT) WBC, ur 6-10(A) 0 - 5 /HPF RBC, ur >50(A) 0 - 2 /HPF [facility] Epithelial cells, squamous, ur 1-5 0 - 5 /HPF [facility] Mucous, ur Present(A) [facility] Hyaline casts, ur 1-5 0 - 10 /LPF [facility] Urine 08/03/2024 5:01 AM CDT 08/03/2024 5:07 AM CDT Erin Hawkins NP LAB URINE ORDERABLES nal Result Performing Organization Address [facility] [place] [address] * (ABNORMAL) Urinalysis reflex to microscopic (08/03/2024 5:01 AM CDT) Color, ur Straw Yellow Clarity, ur Clear Clear [facility] Specific gravity, ur 1.015 1.003 - 1.030 [facility] pH, urine 6.0 [facility] Comment: Interpretive Data ? Urine pH is affected by diet, medications, systemic acid-base disturbances, and renal tubular function. ??pH may affect urinary stone formation. ??For example, urine pH below 6.0 may help reduce the tendency for calcium phosphate stones and pH greater than 6.0 may reduce the tendency for uric acid stone formation. Source: [facility] Current Interpretive Data was last revised on 2017 Protein, ur ql Negative Negative [facility] Glucose, ur ql Negative Negative [facility] Ketones, ur Negative Negative [facility] Bilirubin, ur Negative Negative [facility] Blood, ur 3+(A) Negative [facility] Urobilinogen, ur <2.0 <2.0 mg/dL [facility] Nitrite, ur Negative Negative [facility] Leukocyte esterase, ur 1+(A) Negative [facility] UA reflex comment Reflex to microscopic UA will be performed. [facility] Urine 08/03/2024 5:01 AM CDT 08/03/2024 5:07 AM CDT Erin Hawkins NP LAB URINE ORDERABLES Fi nal Result Performing Organization Address [facility] Co de Phone Number [facility] Department [place] [employer] [place] [address] * Potassium, whole blood (08/03/2024 2:56 AM CDT) Potassium, bld 3.9 3.3 - 4.9 mmol/L Blood 08/03/2024 2:56 AM CDT 08/03/2024 3:03 AM CDT Leonor Quan MD LAB BLOOD ORDERABLES Fi nal Result Performing Organization Address [facility] de Phone Number [facility] [place] [address] * eGFR (08/03/2024 12:16 AM CDT) eGFR [...] 6 AM CDT 08/03/2024 12:27 AM CDT us Amber KUHN LAB BLOOD ORDERABLES Fi nal Result Performing Organization Address City/[facility]/ZIP Co de Phone Number [facility] Department [place] [employer] [place] [address] * Potassium, whole blood (08/03/2024 12:16 AM CDT) Potassium, bld 3.8 3.3 - 4.9 mmol/L Blood 08/03/2024 12:1 6 AM CDT 08/03/2024 12:27 AM CDT us Leonor Quan MD LAB BLOOD ORDERABLES Fi nal Result Performing Organization Address City/[facility] Co de Phone Number [facility] [place] [address] * (ABNORMAL) Calcium, ionized (08/03/2024 12:16 AM CDT) [facility] [address] Calcium, Ionized 4.11(L) 4.50 - 5.10 mg/dL Blood 08/03/2024 12:1 6 AM CDT 08/03/2024 12:27 AM CDT Leonor Quan MD LAB BLOOD ORDERABLES Fi nal Result Performing Organization Address City/[facility] de Phone Number [facility] [place] [place] [address] * Phosphorus (08/03/2024 12:16 AM CDT) [facility] [address] Phosphorus, pl 4.0 2.3 - 4.5 mg/dL Blood 08/03/2024 12:1 6 AM CDT 08/03/2024 12:27 AM CDT Leonor Quan MD LAB BLOOD ORDERABLES Fi nal Result Performing Organization Address [facility] de Phone Number [facility] [place] [place] [address] * Magnesium (08/03/2024 12:16 AM CDT) [facility] [address] [facility] Magnesium 2.1 1.4 - 2.5 mg/dL Blood 08/03/2024 12:1 6 AM CDT 08/03/2024 12:27 AM CDT Result [facility] Leonor Quan MD LAB BLOOD ORDERABLES Fi nal Result Performing Organization Address [facility] de Phone Number [facility] [place] [address] * (ABNORMAL) Basic metabolic panel (08/03/2024 12:16 AM CDT) [facility] [address] Sodium 138 135 - 145 mmol/L Potassium, pl 4.0 3.3 - 4.9 mmol/L [facility] Chloride 106 97 - 110 mmol/L [facility] CO2 24 22 - 32 mmol/L [facility] Anion gap 8 2 - 15 mmol/L [facility] BUN 40(H) 6 - 25 mg/dL [facility] Creatinine 1.18 0.80 - 1.30 mg/dL [facility] Glucose 130 70 - 199 mg/dL [facility] Comment: Interpretive Data Fasting glucose >/= [...] 2022. Calcium 8.4(L) 8.5 - 10.3 mg/dL [facility] Blood 08/03/2024 12:1 6 AM CDT 08/03/2024 12:27 AM CDT us Leonor Quan MD LAB BLOOD ORDERABLES Fi nal Result [facility] [place] [address] * (ABNORMAL) CBC without differential (08/03/2024 12:16 AM CDT) WBC 11.4(H) 3.8 - 9.9 K/cumm Hgb 7.7(L) 13.0 - 17.5 g/dL [facility] Hct 23.9(L) 38.9 - 50.3 % [facility] Plt 176 150 - 400 K/cumm [facility] MPV 10.1 9.1 - 12.3 fL [facility] RBC 2.92(L) 4.30 - 5.80 M/cumm [facility] MCV 81.8 81.3 - 96.4 fL [facility] MCH 26.4(L) 27.1 - 33.3 pg [facility] MCHC 32.2(L) 32.3 - 35.7 g/dL [facility] RDW CV 16.4(H) 11.1 - 14.9 % [facility] RDW SD 48.8(H) 35.7 - 48.1 fL [facility] NRBC abs 0.06(H) 0.00 - 0.01 K/cumm [facility] Blood 08/03/2024 12:1 6 AM CDT 08/03/2024 12:31 AM CDT Leonor Quan MD LAB BLOOD ORDERABLES Fi nal Result Performing Organization Address City/[facility] Co de Phone Number [facility] [place] [address] * POCT glucose (08/02/2024 7:50 PM CDT) Glucose, POC 121 70 - 199 mg/dL Blood 08/02/2024 7:50 PM CDT 08/02/2024 7:50 PM CDT Result [facility] Leonor Quan MD LAB POCT ORDERABLES - D EVICE Final Result Performing Organization Address [facility] Co de Phone Number [facility] [place] [address] * Potassium, whole blood (08/02/2024 7:50 PM CDT) Potassium, bld 3.6 3.3 - 4.9 mmol/L Blood 08/02/2024 7:50 PM CDT 08/02/2024 7:56 PM CDT Result [facility] Leonor Quan MD LAB BLOOD ORDERABLES Fi nal Result Performing Organization Address [facility] Co de Phone Number [facility] [place] [address] * Critical Care (08/02/2024 7:40 PM CDT) [...] plan with the ICU team and other medical/reporting process consultant staff, making frequent assessments and decisions [...] time documenting in the medical record us Erin Hawkins NP IN CLINIC/BEDSIDE ORDER AKILA Final Result * Potassium, whole blood (08/02/2024 6:07 PM CDT) [facility] [address] Potassium, bld 3.5 3.3 - 4.9 mmol/L Blood 08/02/2024 6:07 PM CDT 08/02/2024 6:18 PM CDT us Leonor Quan MD LAB BLOOD ORDERABLES Fi nal Result [facility] Department [place] [address] * Type and screen (08/02/2024 6:07 PM CDT) Janell, indirect Negative ABO Rh O Positive [facility] Blood 08/02/2024 6:07 PM CDT 08/02/2024 6:35 PM CDT Narrative [facility] - 08/02/2024 7:55 PM CDT Has the patient had Daratumumab or Isatuximab in the past 6 months?->Unknown Leonor Quan MD LAB BLOOD BANK TEST ORD ERABLES Final Result [facility] [place] [address] * POCT glucose (08/02/2024 5:50 PM CDT) Glucose, POC 160 70 - 199 mg/dL Blood 08/02/2024 5:50 PM CDT 08/02/2024 5:50 PM CDT Leonor Quan MD LAB POCT ORDERABLES - D EVICE Final Result Performing Organization Address City/[facility]/ZIP Co de Phone Number [facility] Department [place] [address] * POCT glucose (08/02/2024 12:21 PM CDT) Glucose, POC 144 70 - 199 mg/dL Blood 08/02/2024 12:2 1 PM CDT 08/02/2024 12:21 PM CDT Leonor Quan MD LAB POCT ORDERABLES - D EVICE Final Result Performing Organization Address City/[facility]/ZIP Co de Phone Number [facility] [place] [address] * POCT glucose (08/02/2024 7:52 AM CDT) Glucose, POC 120 70 - 199 mg/dL Blood 08/02/2024 7:52 AM CDT 08/02/2024 7:52 AM CDT us Leonor Quan MD LAB POCT ORDERABLES - D EVICE Final Result [facility] Department [place] [address] * Critical Care (08/02/2024 6:00 AM CDT) [...] plan with the ICU team and other medical/reporting process consultant staff, making frequent assessments and decisions [...] LAB BLOOD ORDERABLES Fi nal Result [facility] [place] [address] * eGFR (08/01/2024 11:31 PM CDT) eGFR [...] 1 PM CDT 08/01/2024 11:55 PM CDT Amber KUHN LAB BLOOD ORDERABLES Fi nal Result Performing Organization Address City/[facility]/ZIP Co de Phone Number [facility] [place] [address] * Potassium, whole blood (08/01/2024 11:31 PM CDT) Potassium, bld 4.1 3.3 - 4.9 mmol/L Blood 08/01/2024 11:3 1 PM CDT 08/01/2024 11:39 PM CDT Leonor Quan MD LAB BLOOD ORDERABLES Fi nal Result Performing Organization Address [facility] Co de Phone Number [facility] [place] [address] * (ABNORMAL) Calcium, ionized (08/01/2024 11:31 PM CDT) Calcium, Ionized 4.40(L) 4.50 - 5.10 mg/dL Blood 08/01/2024 11:3 1 PM CDT 08/01/2024 11:40 PM CDT Leonor Quan MD LAB BLOOD ORDERABLES Fi nal Result Performing Organization Address City/[facility] Co de Phone Number [facility] Department [place] [address] * (ABNORMAL) Phosphorus (08/01/2024 11:31 PM CDT) Phosphorus, pl 4.6(H) 2.3 - 4.5 mg/dL Blood 08/01/2024 11:3 1 PM CDT 08/01/2024 11:55 PM CDT Leonor Quan MD LAB BLOOD ORDERABLES Fi nal Result Performing Organization Address City/[facility]/ZIP Co de Phone Number [facility] Department [place] [address] * Magnesium (08/01/2024 11:31 PM CDT) [facility] Magnesium 2.1 1.4 - 2.5 mg/dL Blood 08/01/2024 11:3 1 PM CDT 08/01/2024 11:55 PM CDT Leonor Quan MD LAB BLOOD ORDERABLES Fi nal Result [facility] [place] [address] * (ABNORMAL) Basic metabolic panel (08/01/2024 11:31 PM CDT) [facility] [address] Sodium 142 135 - 145 mmol/L Potassium, pl 4.3 3.3 - 4.9 mmol/L [facility] Chloride 106 97 - 110 mmol/L [facility] CO2 22 22 - 32 mmol/L [facility] Anion gap 14 2 - 15 mmol/L [facility] BUN 41(H) 6 - 25 mg/dL [facility] Creatinine 1.11 0.80 - 1.30 mg/dL [facility] Glucose 123 70 - 199 mg/dL [facility] Comment: Interpretive Data Fasting glucose >/= [...] 2022. Calcium 8.9 8.5 - 10.3 mg/dL [facility] Blood 08/01/2024 11:3 1 PM CDT 08/01/2024 11:55 PM CDT Leonor Quan MD LAB BLOOD ORDERABLES Fi nal Result Performing Organization Address City/[facility] Co de Phone Number [facility] Department [place] [address] * (ABNORMAL) CBC without differential (08/01/2024 11:31 PM CDT) WBC 8.3 3.8 - 9.9 K/cumm Hgb 8.2(L) 13.0 - 17.5 g/dL [facility] Hct 25.5(L) 38.9 - 50.3 % [facility] Plt 154 150 - 400 K/cumm [facility] MPV 10.7 9.1 - 12.3 fL [facility] RBC 3.07(L) 4.30 - 5.80 M/cumm [facility] MCV 83.1 81.3 - 96.4 fL [facility] MCH 26.7(L) 27.1 - 33.3 pg [facility] MCHC 32.2(L) 32.3 - 35.7 g/dL [facility] RDW CV 16.2(H) 11.1 - 14.9 % [facility] RDW SD 48.8(H) 35.7 - 48.1 fL [facility] NRBC abs 0.09(H) 0.00 - 0.01 K/cumm [facility] Blood 08/01/2024 11:3 1 PM CDT 08/01/2024 11:54 PM CDT Leonor Quan MD LAB BLOOD ORDERABLES Fi nal Result [facility] [place] [address] * Potassium, whole blood (08/01/2024 8:24 PM CDT) Potassium, bld 4.2 3.3 - 4.9 mmol/L Blood 08/01/2024 8:24 PM CDT 08/01/2024 8:31 PM CDT Result [facility] Leonor Quan MD LAB BLOOD ORDERABLES Fi nal Result Performing Organization Address [facility] Co de Phone Number [facility] [place] [address] * POCT glucose (08/01/2024 8:23 PM CDT) Glucose, POC 133 70 - 199 mg/dL Blood 08/01/2024 8:23 PM CDT 08/01/2024 8:23 PM CDT Result [facility] Leonor Quan MD LAB POCT ORDERABLES - D EVICE Final Result Performing Organization Address [facility] Phone Number [facility] [place] [address] * (ABNORMAL) Blood gas, arterial (08/01/2024 5:04 PM CDT) pH, Art 7.40 7.35 - 7.45 PCO2, Arterial 36 35 - 45 mmHg [facility] PO2, Arterial 98 83 - 108 mmHg [facility] HCO3 Art (Calculated) 23 20 - 30 mmol/L [facility] BE, art -2 mmol/L [facility] Comment: Interpretive Data No Reference Range Established Current Interpretive Data was last revised on 2017 O2 Sat Art (Measured) 98(H) 90 - 95 % [facility] Blood 08/01/2024 5:04 PM CDT 08/01/2024 5:11 PM CDT Result [facility] Leonor Quan MD LAB BLOOD ORDERABLES Fi nal Result Performing Organization Address [facility] Co de Phone Number [facility] [place] [address] * POCT glucose (08/01/2024 4:22 PM CDT) Glucose, POC 127 70 - 199 mg/dL Blood 08/01/2024 4:22 PM CDT 08/01/2024 4:22 PM CDT Leonor Quan MD LAB POCT ORDERABLES - D EVICE Final Result Performing Organization Address [facility] de Phone Number [facility] Department [place] [address] * Potassium, whole blood (08/01/2024 4:22 PM CDT) Potassium, bld 3.5 3.3 - 4.9 mmol/L Blood 08/01/2024 4:22 PM CDT 08/01/2024 4:29 PM CDT Leonor Quan MD LAB BLOOD ORDERABLES Fi nal Result Performing Organization Address [facility] de Phone Number [facility] Department [place] [address] * XR Chest 1 View (08/01/2024 2:12 [...] it. Electronically signed by: Roger Rodríguez M.D. Analilia Reilly SUPERVISOR [employer]ADING IMG XR PROCEDURES Tiffany l Result * POCT glucose (08/01/2024 11:54 AM CDT) Glucose, POC 121 70 - 199 mg/dL Blood 08/01/2024 11:5 4 AM CDT 08/01/2024 11:54 AM CDT us Leonor Quan MD LAB POCT ORDERABLES - D EVICE Final Result [facility] Department [place] [address] * POCT glucose (08/01/2024 7:49 AM CDT) Glucose, POC 97 70 - 199 mg/dL Blood 08/01/2024 7:49 AM CDT 08/01/2024 7:49 AM CDT us Leonor Quan MD LAB POCT ORDERABLES - D EVICE Final Result [facility] Department [place] [address] * Critical Care (08/01/2024 6:00 AM CDT) [...] plan with the ICU team and other medical/reporting process consultant staff, making frequent assessments and decisions [...] whole blood (08/01/2024 5:24 AM CDT) Pathologist [facility] Potassium, bld 4.0 3.3 - 4.9 mmol/L Blood 08/01/2024 5:24 AM CDT 08/01/2024 5:33 AM CDT us Leonor Quan MD LAB BLOOD ORDERABLES Fi nal Result Performing Organization Address [facility] de Phone Number [facility] Department [place] [address] * eGFR (07/31/2024 11:16 PM CDT) eGFR 75 >=60 mL/min/1. 73 m2 Comment: [...] PM CDT 07/31/2024 11:29 PM CDT us Amber KUHN LAB BLOOD ORDERABLES Fi nal Result Performing Organization Address City/State/[facility] Co de Phone Number [facility] [place] [address] * Potassium, whole blood (07/31/2024 11:16 PM CDT) Potassium, bld 3.6 3.3 - 4.9 mmol/L Blood 07/31/2024 11:1 6 PM CDT 07/31/2024 11:23 PM CDT Leonor Quan MD LAB BLOOD ORDERABLES Fi nal Result Performing Organization Address [facility] [place] [address] * Calcium, ionized (07/31/2024 11:16 PM CDT) [facility] Calcium, Ionized 4.63 4.50 - 5.10 mg/dL Blood 07/31/2024 11:1 6 PM CDT 07/31/2024 11:29 PM CDT Leonor Quan MD LAB BLOOD ORDERABLES Fi nal Result Performing Organization Address [facility] Co de Phone Number [facility] [place] [address] * Phosphorus (07/31/2024 11:16 PM CDT) Pathologist [facility] Phosphorus, pl 3.5 2.3 - 4.5 mg/dL Blood 07/31/2024 11:1 6 PM CDT 07/31/2024 11:29 PM CDT Leonor Quan MD LAB BLOOD ORDERABLES Fi nal Result Performing Organization Address City/[facility] Co de Phone Number [facility] [place] [address] * Magnesium (07/31/2024 11:16 PM CDT) Pathologist [facility] Magnesium 2.1 1.4 - 2.5 mg/dL Blood 07/31/2024 11:1 6 PM CDT 07/31/2024 11:29 PM CDT Leonor Quan MD LAB BLOOD ORDERABLES Fi nal Result Performing Organization Address City/[facility]/ZIP Co de Phone Number [facility] Department [place] [address] * (ABNORMAL) Basic metabolic panel (07/31/2024 11:16 PM CDT) Pathologist [facility] Sodium 144 135 - 145 mmol/L Potassium, pl 3.9 3.3 - 4.9 mmol/L [facility] Chloride 109 97 - 110 mmol/L [facility] CO2 25 22 - 32 mmol/L [facility] Anion gap 10 2 - 15 mmol/L [facility] BUN 46(H) 6 - 25 mg/dL [facility] Creatinine 1.06 0.80 - 1.30 mg/dL [facility] Glucose 119 70 - 199 mg/dL [facility] Comment: Interpretive Data Fasting glucose >/= [...] 2022. Calcium 8.1(L) 8.5 - 10.3 mg/dL [facility] Blood 07/31/2024 11:1 6 PM CDT 07/31/2024 11:29 PM CDT Leonor Quan MD LAB BLOOD ORDERABLES Fi nal Result Performing Organization Address [facility]/ZIP Co de Phone Number [facility] Department [place] [address] * (ABNORMAL) CBC without differential (07/31/2024 11:16 PM CDT) [facility] [address] [facility] WBC 5.6 3.8 - 9.9 K/cumm Hgb 7.4(L) 13.0 - 17.5 g/dL [facility] Hct 24.4(L) 38.9 - 50.3 % [facility] Plt 121(L) 150 - 400 K/cumm [facility] MPV 10.5 9.1 - 12.3 fL [facility] RBC 2.86(L) 4.30 - 5.80 M/cumm [facility] MCV 85.3 81.3 - 96.4 fL [facility] MCH 25.9(L) 27.1 - 33.3 pg [facility] MCHC 30.3(L) 32.3 - 35.7 g/dL [facility] RDW CV 16.5(H) 11.1 - 14.9 % [facility] RDW SD 50.6(H) 35.7 - 48.1 fL [facility] NRBC abs 0.10(H) 0.00 - 0.01 K/cumm [facility] Blood 07/31/2024 11:1 6 PM CDT 07/31/2024 11:29 PM CDT us Leonor Quan MD LAB BLOOD ORDERABLES Fi nal Result [facility] [place] [address] * POCT glucose (07/31/2024 8:20 PM CDT) [facility] Glucose, POC 161 70 - 199 mg/dL Blood 07/31/2024 8:20 PM CDT 07/31/2024 8:20 PM CDT Leonor Quan MD LAB POCT ORDERABLES - D EVICE Final Result Performing Organization Address City/[facility]/ZIP Co de Phone Number [facility] [place] [address] * Potassium, whole blood (07/31/2024 8:20 PM CDT) Potassium, bld 3.6 3.3 - 4.9 mmol/L Blood 07/31/2024 8:20 PM CDT 07/31/2024 8:28 PM CDT us Leonor Quan MD LAB BLOOD ORDERABLES Fi nal Result Performing Organization Address [facility] Co de Phone Number [facility] [place] [address] * Critical Care (07/31/2024 6:44 PM CDT) [...] plan with the patient's team and other medical/reporting process consultant staff. This time was in addition [...] catheter tip overlies the superior vena cava. ??Anderson-Gwen catheter has been removed. Cardiomediastinal silhouette in [...] catheter tip overlies the superior vena cava. Anderson-Gwen catheter has been removed. Cardiomediastinal silhouette in keeping with postoperative change. Mild left lower lobe atelectasis and small left pleural effusion again seen. Trace pulmonary edema may be present. No definite pneumothorax seen. Electronically signed by: Serafin Terrell M.D. Mala Pineda NP IMG XR PROCEDURES Final Resu lt * Potassium, whole blood (07/31/2024 4:59 PM CDT) Potassium, bld 3.4 3.3 - 4.9 mmol/L Blood 07/31/2024 4:59 PM CDT 07/31/2024 5:06 PM CDT Leonor Quan MD LAB BLOOD ORDERABLES Fi nal Result [facility] [place] [address] * POCT glucose (07/31/2024 4:57 PM CDT) Glucose, POC 130 70 - 199 mg/dL Blood 07/31/2024 4:57 PM CDT 07/31/2024 4:57 PM CDT us Leonor Quan MD LAB POCT ORDERABLES - D EVICE Final Result [facility] Department [place] [address] * GENERAL (07/31/2024 12:53 PM CDT) Narrative Leonor Quan MD - 07/31/2024 12:53 PM CDT Leonor Quan MD ? 07/31/2024 ??1:05 PM Pulmonary Artery Catheter Removal Date/Time: 07/31/2024 12:53 PM Performed by: Leonor Quan MD Authorized by: Leonor Quan MD ?? [place] Protocol: RN Notified of Procedure: yes ?? Informed consent: ??Risks, benefits, alternatives discussed and patient/customer account representative/guardian agrees and accepts Patient's stated name/ matches [...] pulmonary artery catheter at bedside using the Granger technique (Intensive Care Medicine, 1996). ??The patient [...] but eventually it pulled out intact. ??A [id number] 2-0 Prolene suture was used to close the tract. ??There was no bleeding. ?? Patient tolerance: ??Patient tolerated the procedure well with no immediate complications Post Procedure Debrief: All guidewires, needles, sponges or other items are accounted for: yes ?? Any special post procedure monitoring, testing or other considerations: n/a ?? All specimens identified, labeled and matched to patient identification: n/a ?? Responsible republican for transporting specimen(s) to lab determined: n/a ?? Leonor Quan MD IN CLINIC/BEDSIDE ORDER AKILA Final Result * POCT glucose (07/31/2024 11:24 AM CDT) Glucose, POC 106 70 - 199 mg/dL Blood 07/31/2024 11:2 4 AM CDT 07/31/2024 11:24 AM CDT Leonor Quan MD LAB POCT ORDERABLES - D EVICE Final Result [facility] Department [place] [address] * Potassium, whole blood (07/31/2024 11:24 AM CDT) Potassium, bld 3.5 3.3 - 4.9 mmol/L Blood 07/31/2024 11:2 4 AM CDT 07/31/2024 11:33 AM CDT Leonor Quan MD LAB BLOOD ORDERABLES Fi nal Result [facility] [place] [address] * TUNNEL MINER Evaluation and Treatment (07/31/2024 8:56 AM CDT) Narrative Erin Zaragoza, TUNNEL MINER - 07/31/2024 8:56 AM CDT Erin Zaragoza, TUNNEL MINER ? 07/31/2024 ??9:46 AM Speech-Language Pathology: Clinical Bedside Swallow HPI/PMH 74 y.o. yo male w/ PMHx of HTN, HLD, CAD, moderate MR, 2nd degree av block, asthma, JACQUELINE, pHTN, hepatic steatosis, GERD, hiatal hernia, DM Type II (Hgb A1c7.5), hx of pituitary adenoma, and obesity. Patient with worsening shortness of breath and functional status. He was referred to [facility] for surgical management. 07/24: CABG x 3 [...] 2 and bilateral chest tubes. Changed from BLOCK HACKER to Epi. 07/25: Inhaled Veletri added for [...] Self feeding. Current Diet Order: NPO pending TUNNEL MINER re-evaluation General Information Abiel Fink 07/31/24 General [...] Clinical Impression/Additional Information: Per comparison with initial TUNNEL MINER evaluation note yesterday, pt's mental status significantly [...] MASA score improved from 140/200 yesterday. Plan TUNNEL MINER Frequency of Services during current admission: Discharge from this Service TUNNEL MINER Recommendation (Add'l Services): No further TUNNEL MINER indicated Next Visit Plan: No further TUNNEL MINER visits planned in acute care; please re-refer if additional dysphagia concerns arise. Please reference care plan for treatment goals, if indicated. Discharge Summary Statement If this is the last swallow therapy visit, this serves as the discharge summary. us Shantal Elizabeth NP TUNNEL MINER ORDERABLES F inal Result * POCT glucose (07/31/2024 7:38 AM CDT) Glucose, POC 121 70 - 199 mg/dL Blood 07/31/2024 7:38 AM CDT 07/31/2024 7:38 AM CDT us Leonor Quan MD LAB POCT ORDERABLES - D JULIETTE Final Result Performing Organization Address City/State/[facility] Co de Phone Number [facility] Department [place] [address] * Critical Care (07/31/2024 6:00 AM CDT) [...] plan with the ICU team and other medical/reporting process consultant staff, making frequent assessments and decisions [...] Blood gas, arterial (07/31/2024 4:22 AM CDT) [facility] pH, Art 7.44 7.35 - 7.45 PCO2, Arterial 39 35 - 45 mmHg [facility] PO2, Arterial 114(H) 83 - 108 mmHg [facility] HCO3 Art (Calculated) 27 20 - 30 mmol/L [facility] BE, art 2 mmol/L [facility] Comment: Interpretive Data No Reference Range Established Current Interpretive Data was last revised on 2017 O2 Sat Art (Measured) 99(H) 90 - 95 % [facility] Blood 07/31/2024 4:22 AM CDT 07/31/2024 4:28 AM CDT Leonor Quan MD LAB BLOOD ORDERABLES Fi nal Result [facility] Department [place] [address] * (ABNORMAL) Hemoglobin total, pulmonary artery (07/31/2024 4:22 AM CDT) Pathologist [facility] Hemoglobin total, PA 8.1(L) 13.0 - 17.5 g/dL Blood 07/31/2024 4:22 AM CDT 07/31/2024 4:28 AM CDT Amber KUHN LAB BLOOD ORDERABLES Fi nal Result Performing Organization Address [facility] Co de Phone Number [facility] [place] [address] * Oxyhemoglobin, pulmonary artery (07/31/2024 4:22 AM CDT) [facility] Oxyhemoglobin, PA 55.5 % Comment: Interpretive Data No reference range established. Current interpretive data was last revised 2020. Blood 07/31/2024 4:22 AM CDT 07/31/2024 4:28 AM CDT Amber KUHN LAB BLOOD ORDERABLES Fi nal Result Performing Organization Address [facility] de Phone Number [facility] Department [place] [employer] [place] [address] * Potassium, whole blood (07/31/2024 4:22 AM CDT) [facility] Potassium, bld 3.5 3.3 - 4.9 mmol/L Blood 07/31/2024 4:22 AM CDT 07/31/2024 4:28 AM CDT Leonor Quan MD LAB BLOOD ORDERABLES Fi nal Result Performing Organization Address [facility] de Phone Number [facility] [place] [address] * eGFR (07/30/2024 11:39 PM CDT) eGFR [...] KUHN LAB BLOOD ORDERABLES Fi nal Result [facility] Department [place] [address] * (ABNORMAL) Blood gas, arterial (07/30/2024 11:39 PM CDT) [facility] [address] [facility] pH, Art 7.44 7.35 - 7.45 PCO2, Arterial 38 35 - 45 mmHg [facility] PO2, Arterial 114(H) 83 - 108 mmHg [facility] HCO3 Art (Calculated) 27 20 - 30 mmol/L [facility] BE, art 2 mmol/L [facility] Comment: Interpretive Data No Reference Range Established Current Interpretive Data was last revised on 2017 O2 Sat Art (Measured) 99(H) 90 - 95 % [facility] Blood 07/30/2024 11:3 9 PM CDT 07/30/2024 11:53 PM CDT Leonor Quan MD LAB BLOOD ORDERABLES Fi nal Result Performing Organization Address City/[facility]/ZIP Co de Phone Number [facility] [place] [address] * Oxyhemoglobin, pulmonary artery (07/30/2024 11:39 PM CDT) Oxyhemoglobin, PA 62.1 % Comment: Interpretive Data No reference range established. Current interpretive data was last revised 2020. Blood 07/30/2024 11:3 9 PM CDT 07/30/2024 11:53 PM CDT Amber KUHN LAB BLOOD ORDERABLES Fi nal Result Performing Organization Address [facility] Co de Phone Number [facility] [address] * (ABNORMAL) Hemoglobin total, pulmonary artery (07/30/2024 11:39 PM CDT) Hemoglobin total, PA 7.7(L) 13.0 - 17.5 g/dL Blood 07/30/2024 11:3 9 PM CDT 07/30/2024 11:53 PM CDT Amber KUHN LAB BLOOD ORDERABLES Fi nal Result Performing Organization Address City/[facility] Co de Phone Number [facility] [place] [address] * Calcium, ionized (07/30/2024 11:39 PM CDT) [facility] [facility] [address] Calcium, Ionized 4.68 4.50 - 5.10 mg/dL Blood 07/30/2024 11:3 9 PM CDT 07/30/2024 11:53 PM CDT Leonor Quan MD LAB BLOOD ORDERABLES Fi nal Result Performing Organization Address [facility] Co de Phone Number [facility] [place] [address] * Phosphorus (07/30/2024 11:39 PM CDT) [facility] [address] Phosphorus, pl 3.6 2.3 - 4.5 mg/dL Blood 07/30/2024 11:3 9 PM CDT 07/31/2024 12:14 AM CDT Leonor Quan MD LAB BLOOD ORDERABLES Fi nal Result Performing Organization Address [facility] Co de Phone Number [facility] [place] [place] [address] * Magnesium (07/30/2024 11:39 PM CDT) [facility] [address] Magnesium 2.1 1.4 - 2.5 mg/dL Blood 07/30/2024 11:3 9 PM CDT 07/31/2024 12:14 AM CDT Result [facility] Leonor Quan MD LAB BLOOD ORDERABLES Fi nal Result Performing Organization Address [facility] de Phone Number [facility] [place] [address] * (ABNORMAL) Basic metabolic panel (07/30/2024 11:39 PM CDT) [facility] [address] Sodium 148(H) 135 - 145 mmol/L Potassium, pl 3.3 3.3 - 4.9 mmol/L [facility] Chloride 109 97 - 110 mmol/L [facility] CO2 30 22 - 32 mmol/L [facility] Anion gap 9 2 - 15 mmol/L [facility] BUN 56(H) 6 - 25 mg/dL [facility] Creatinine 1.20 0.80 - 1.30 mg/dL [facility] Glucose 169 70 - 199 mg/dL [facility] Comment: Interpretive Data Fasting glucose >/= [...] 2022. Calcium 8.5 8.5 - 10.3 mg/dL [facility] Blood 07/30/2024 11:3 9 PM CDT 07/31/2024 12:14 AM CDT us Leonor Quan MD LAB BLOOD ORDERABLES Fi nal Result [facility] [place] [address] * (ABNORMAL) CBC without differential (07/30/2024 11:39 PM CDT) WBC 4.0 3.8 - 9.9 K/cumm Hgb 7.3(L) 13.0 - 17.5 g/dL [facility] Hct 23.5(L) 38.9 - 50.3 % [facility] Plt 91(L) 150 - 400 K/cumm [facility] MPV 11.0 9.1 - 12.3 fL [facility] RBC 2.72(L) 4.30 - 5.80 M/cumm [facility] MCV 86.4 81.3 - 96.4 fL [facility] MCH 26.8(L) 27.1 - 33.3 pg [facility] MCHC 31.1(L) 32.3 - 35.7 g/dL [facility] RDW CV 16.8(H) 11.1 - 14.9 % [facility] RDW SD 52.2(H) 35.7 - 48.1 fL [facility] NRBC abs 0.14(H) 0.00 - 0.01 K/cumm [facility] Blood 07/30/2024 11:3 9 PM CDT 07/31/2024 12:14 AM CDT Leonor Quan MD LAB BLOOD ORDERABLES Fi nal Result [facility] Department [place] [address] * POCT glucose (07/30/2024 8:05 PM CDT) Glucose, POC 162 70 - 199 mg/dL Blood 07/30/2024 8:05 PM CDT 07/30/2024 8:05 PM CDT Leonor Quan MD LAB POCT ORDERABLES - D EVICE Final Result Performing Organization Address [facility] Co de Phone Number [facility] Department [place] [address] * Critical Care (07/30/2024 6:37 PM CDT) [...] plan with the ICU team and other medical/reporting process consultant staff, making frequent assessments and decisions [...] by: Maria Dolores Garcia M.D. Mala Pineda SUPERVISOR PYROTECHN[employer] LOADING IMG XR PROCEDURES Final Resu lt * POCT glucose (07/30/2024 5:01 PM CDT) [facility] [address] Glucose, POC 181 70 - 199 mg/dL Blood 07/30/2024 5:01 PM CDT 07/30/2024 5:01 PM CDT Leonor Quan MD LAB POCT ORDERABLES - D EVICE Final Result [facility] Department [place] [address] * Type and screen (07/30/2024 5:01 PM CDT) [facility] [address] ABO Rh O Positive Janell, indirect Negative [facility] Blood 07/30/2024 5:01 PM CDT 07/30/2024 5:13 PM CDT Narrative [facility] - 07/30/2024 6:00 PM CDT Has the patient had Daratumumab or Isatuximab in the past 6 months?->Unknown Leonor Quan MD LAB BLOOD BANK TEST ORD ERABLES Final Result [facility] Department [place] [employer] [place] [address] * (ABNORMAL) eGFR (07/30/2024 12:13 PM CDT) [facility] [address] eGFR 54(L) >=60 mL/min/1. 73 m2 Comment: [...] NP LAB BLOOD ORDERAB LES Final Result [facility] Department [place] [address] * (ABNORMAL) Basic metabolic panel (07/30/2024 12:13 PM CDT) Sodium 152(H) 135 - 145 mmol/L Potassium, pl 3.5 3.3 - 4.9 mmol/L [facility] Chloride 112(H) 97 - 110 mmol/L [facility] CO2 33(H) 22 - 32 mmol/L [facility] Anion gap 7 2 - 15 mmol/L [facility] BUN 56(H) 6 - 25 mg/dL [facility] Creatinine 1.38(H) 0.80 - 1.30 mg/dL [facility] Glucose 153 70 - 199 mg/dL [facility] Comment: Interpretive Data Fasting glucose >/= [...] 2022. Calcium 8.6 8.5 - 10.3 mg/dL [facility] Blood 07/30/2024 12:1 3 PM CDT 07/30/2024 12:32 PM CDT us Shantal Elizabeth NP LAB BLOOD ORDERAB LES Final Result [facility] Department [place] [employer] [place] [address] * POCT glucose (07/30/2024 10:56 AM CDT) Glucose, POC 141 70 - 199 mg/dL Blood 07/30/2024 10:5 6 AM CDT 07/30/2024 10:56 AM CDT us Leonor Quan MD LAB POCT ORDERABLES - D EVICE Final Result [facility] Department [place] [place] [address] * POCT glucose (07/30/2024 7:50 AM CDT) Glucose, POC 173 70 - 199 mg/dL Blood 07/30/2024 7:50 AM CDT 07/30/2024 7:50 AM CDT us Leonor Quan MD LAB POCT ORDERABLES - D EVICE Final Result [facility] Department [place] [address] * Critical Care (07/30/2024 7:48 AM CDT) [...] plan with the ICU team and other medical/reporting process consultant staff, making frequent assessments and decisions [...] ORDERABLES Fi nal Result Performing Organization Address City/[facility] Co de Phone Number [facility] [place] [address] * Oxyhemoglobin, pulmonary artery (07/30/2024 7:48 AM CDT) Oxyhemoglobin, PA 70.7 % Comment: Interpretive Data No reference range established. Current interpretive data was last revised 2020. Blood 07/30/2024 7:48 AM CDT 07/30/2024 8:03 AM CDT Result [facility] Amber KUHN LAB BLOOD ORDERABLES Fi nal Result Performing Organization Address [facility] de Phone Number [facility] [place] [address] * (ABNORMAL) Blood gas, arterial (07/30/2024 7:48 AM CDT) pH, Art 7.46(H) 7.35 - 7.45 PCO2, Arterial 42 35 - 45 mmHg [facility] PO2, Arterial 148(H) 83 - 108 mmHg [facility] HCO3 Art (Calculated) 30 20 - 30 mmol/L [facility] BE, art 5 mmol/L [facility] Comment: Interpretive Data No Reference Range Established Current Interpretive Data was last revised on 2017 O2 Sat Art (Measured) 100(H) 90 - 95 % [facility] Blood 07/30/2024 7:48 AM CDT 07/30/2024 8:03 AM CDT Leonor Quan MD LAB BLOOD ORDERABLES Fi nal Result Performing Organization Address [facility]/ZIP Co de Phone Number [facility]ILLIAN [facility] Department [place] [address] * (ABNORMAL) eGFR (07/30/2024 1:01 AM CDT) [...] ORDERABLES Fi nal Result Performing Organization Address [facility]/ZIP Co de Phone Number GILLIAN [facility] Department [place] [address] * Phosphorus (07/30/2024 1:01 AM CDT) [facility] [address] Phosphorus, pl 4.1 2.3 - 4.5 mg/dL Blood 07/30/2024 1:01 AM CDT 07/30/2024 1:13 AM CDT Leonor Quan MD LAB BLOOD ORDERABLES Fi nal Result Performing Organization Address City/[facility]/ZIP Co de Phone Number [facility] Department [place] [address] * Magnesium (07/30/2024 1:01 AM CDT) [facility] [address] Magnesium 2.0 1.4 - 2.5 mg/dL Blood 07/30/2024 1:01 AM CDT 07/30/2024 1:13 AM CDT Leonor Quan MD LAB BLOOD ORDERABLES Fi nal Result Performing Organization Address [facility] de Phone Number [facility] Department [place] [address] * (ABNORMAL) Basic metabolic panel (07/30/2024 1:01 AM CDT) [facility] [address] Sodium 150(H) 135 - 145 mmol/L Potassium, pl 3.6 3.3 - 4.9 mmol/L [facility] Chloride 107 97 - 110 mmol/L [facility] CO2 34(H) 22 - 32 mmol/L [facility] Anion gap 9 2 - 15 mmol/L [facility] BUN 56(H) 6 - 25 mg/dL [facility] Creatinine 1.39(H) 0.80 - 1.30 mg/dL [facility] Glucose 148 70 - 199 mg/dL [facility] Comment: Interpretive Data Fasting glucose >/= [...] 2022. Calcium 9.2 8.5 - 10.3 mg/dL [facility] Blood 07/30/2024 1:01 AM CDT 07/30/2024 1:13 AM CDT Leonor Quan MD LAB BLOOD ORDERABLES Fi nal Result [facility] Department [place] [address] * (ABNORMAL) CBC without differential (07/30/2024 1:01 AM CDT) WBC 3.8 3.8 - 9.9 K/cumm Hgb 7.6(L) 13.0 - 17.5 g/dL [facility] Hct 24.4(L) 38.9 - 50.3 % [facility] Plt 72(L) 150 - 400 K/cumm [facility] MPV 9.9 9.1 - 12.3 fL [facility] RBC 2.88(L) 4.30 - 5.80 M/cumm [facility] MCV 84.7 81.3 - 96.4 fL [facility] MCH 26.4(L) 27.1 - 33.3 pg [facility] MCHC 31.1(L) 32.3 - 35.7 g/dL [facility] RDW CV 17.1(H) 11.1 - 14.9 % [facility] RDW SD 52.5(H) 35.7 - 48.1 fL [facility] NRBC abs 0.20(H) 0.00 - 0.01 K/cumm [facility] Blood 07/30/2024 1:01 AM CDT 07/30/2024 1:13 AM CDT Leonor Quan MD LAB BLOOD ORDERABLES Fi nal Result [facility] [place] [address] * (ABNORMAL) Blood gas, arterial (07/29/2024 9:34 PM CDT) pH, Art 7.48(H) 7.35 - 7.45 PCO2, Arterial 42 35 - 45 mmHg [facility] PO2, Arterial 130(H) 83 - 108 mmHg [facility] HCO3 Art (Calculated) 32(H) 20 - 30 mmol/L [facility] BE, art 7 mmol/L [facility] Comment: Interpretive Data No Reference Range Established Current Interpretive Data was last revised on 2017 O2 Sat Art (Measured) 99(H) 90 - 95 % [facility] Blood 07/29/2024 9:34 PM CDT 07/29/2024 9:43 PM CDT us Leonor Quan MD LAB BLOOD ORDERABLES Fi nal Result Performing Organization Address City/[facility]/[place] [address] * (ABNORMAL) Hemoglobin total, pulmonary artery (07/29/2024 9:34 PM CDT) Hemoglobin total, PA 7.8(L) 13.0 - 17.5 g/dL Blood 07/29/2024 9:34 PM CDT 07/29/2024 9:43 PM CDT Amber KUHN LAB BLOOD ORDERABLES Fi nal Result [facility] [place] [address] * Oxyhemoglobin, pulmonary artery (07/29/2024 9:34 PM CDT) Oxyhemoglobin, PA 61.1 % Comment: Interpretive Data No reference range established. Current interpretive data was last revised 2020. Blood 07/29/2024 9:3 4 PM CDT 07/29/2024 9:43 PM CDT us Amber KUHN LAB BLOOD ORDERABLES Fi nal Result Performing Organization Address City/[facility]/ZIP Co [facility] [place] [address] * POCT glucose (07/29/2024 8:34 PM CDT) Glucose, POC 138 70 - 199 mg/dL Blood 07/29/2024 8:34 PM CDT 07/29/2024 8:34 PM CDT us Leonor Quan MD LAB POCT ORDERABLES - D EVICE Final Result Performing Organization Address [facility] Co de Phone Number [facility] Department [place] [address] * XR Chest 1 View (07/29/2024 6:51 [...] by: Maria Dolores Garcia M.D. Mala Pineda NP IMG XR PROCEDURES [...] plan with the ICU team and other medical/reporting process consultant staff, making frequent assessments and decisions [...] patient with consultants and the medical staff Payton Fernando SUPERVISOR PYROTECHNIC LOADING IN CLINIC/BEDSIDE ORDERABLES F inal Result * POCT glucose (07/29/2024 4:56 PM CDT) Glucose, POC 150 70 - 199 mg/dL Blood 07/29/2024 4:56 PM CDT 07/29/2024 4:56 PM CDT Leonor Quan MD LAB POCT ORDERABLES - D JULIETTE Final Result Performing Organization Address [facility] Co de Phone Number [facility] Department [place] [address] * Potassium, whole blood (07/29/2024 4:54 PM CDT) Potassium, bld 3.9 3.3 - 4.9 mmol/L Blood 07/29/2024 4:54 PM CDT 07/29/2024 5:00 PM CDT Narrative [facility] - 07/29/2024 5:03 PM CDT While on Bumex infusion Mala Pineda SUPERVISOR PYROTECH[employer] LOADING LAB BLOOD ORDERABLES Final R esult Performing Organization Address [facility] Co de Phone Number [facility] Department [place] [address] * Oxyhemoglobin, pulmonary artery (07/29/2024 12:24 PM CDT) Oxyhemoglobin, PA 66.2 % Comment: Interpretive Data No reference range established. Current interpretive data was last revised 2020. Blood 07/29/2024 12:2 4 PM CDT 07/29/2024 12:32 PM CDT Elinor Paul SUPERVISOR P[employer]CH[employer]ADING LAB BLOOD ORDERABLES Fin al Result Performing Organization Address City/[facility]/ZIP Co de Phone Number [facility] [place] [address] * Potassium, whole blood (07/29/2024 12:24 PM CDT) Pathologist [facility] Potassium, bld 4.1 3.3 - 4.9 mmol/L Blood 07/29/2024 12:2 4 PM CDT 07/29/2024 12:32 PM CDT Narrative [facility] - 07/29/2024 12:42 PM CDT While on Bumex infusion Mala Pineda SUPERVISOR P[employer]CH[employer]ADING LAB BLOOD ORDERABLES Final R esult Performing Organization Address [facility] [place] [address] * (ABNORMAL) POCT glucose (07/29/2024 12:01 PM CDT) [facility] Glucose, POC 208(H) 70 - 199 mg/dL Blood 07/29/2024 12:0 1 PM CDT 07/29/2024 12:01 PM CDT Leonor Quan MD LAB POCT ORDERABLES - D EVICE Final Result Performing Organization Address [facility] Co de Phone Number [facility] Department [place] [place] [address] * POCT glucose (07/29/2024 9:14 AM CDT) Glucose, POC 158 70 - 199 mg/dL Blood 07/29/2024 9:14 AM CDT 07/29/2024 9:14 AM CDT Leonor Quan MD LAB POCT ORDERABLES - D EVICE Final Result Performing Organization Address [facility]/ZIP Co de Phone Number [facility] Department [place] [address] * Critical Care (07/29/2024 8:52 AM CDT) [...] plan with the ICU team and other medical/reporting process consultant staff, making frequent assessments and decisions [...] PCO2, Arterial 44 35 - 45 mmHg [facility] PO2, Arterial 137(H) 83 - 108 mmHg [facility] HCO3 Art (Calculated) 33(H) 20 - 30 mmol/L [facility], art 8 mmol/L [facility] Comment: Interpretive Data No Reference Range Established Current Interpretive Data was last revised on 2017 O2 Sat Art (Measured) 100(H) 90 - 95 % [facility] Blood 07/29/2024 8:38 AM CDT 07/29/2024 8:45 AM CDT Leonor Quan MD LAB BLOOD ORDERABLES Fi nal Result Performing Organization Address City/[facility] Co de Phone Number [facility] [place] [address] * Oxyhemoglobin, pulmonary artery (07/29/2024 8:38 AM CDT) Oxyhemoglobin, PA 56.7 % Comment: Interpretive Data No reference range established. Current interpretive data was last revised 2020. Blood 07/29/2024 8:38 AM CDT 07/29/2024 8:45 AM CDT Amber KUHN LAB BLOOD ORDERABLES Fi nal Result Performing Organization Address [facility] [place] [address] * (ABNORMAL) Hemoglobin total, pulmonary artery (07/29/2024 8:38 AM CDT) Hemoglobin total, PA 8.2(L) 13.0 - 17.5 g/dL Blood 07/29/2024 8:38 AM CDT 07/29/2024 8:45 AM CDT Amber UKHN LAB BLOOD ORDERABLES Fi nal Result Performing Organization Address City/[facility] Co de Phone Number [facility] [place] [address] * Potassium, whole blood (07/29/2024 8:38 AM CDT) Potassium, bld 3.9 3.3 - 4.9 mmol/L Blood 07/29/2024 8:38 AM CDT 07/29/2024 8:45 AM CDT Narrative [facility] - 07/29/2024 8:53 AM CDT While on Bumex infusion Mala Tonsor SUPERVISOR PYR[employer]CH[employer] LOADING LAB BLOOD ORDERABLES Final R esult Performing Organization Address [facility] Co de Phone Number [facility] [place] [address] * Potassium, whole blood (07/29/2024 3:59 AM CDT) Potassium, bld 3.8 3.3 - 4.9 mmol/L Blood 07/29/2024 3:59 AM CDT 07/29/2024 4:07 AM CDT Narrative [facility] - 07/29/2024 4:11 AM CDT While on Bumex infusion Mala Krauseor SUPERVISOR PYROTECH[employer] LOADING LAB BLOOD ORDERABLES Final R [facility] Performing Organization Address [facility] de Phone Number [facility] [place] [place] [address] * eGFR (07/29/2024 12:31 AM CDT) eGFR [...] AM CDT 07/29/2024 12:52 AM CDT Amber KUHN LAB BLOOD ORDERABLES Fi nal Result Performing Organization Address [facility] de Phone Number [facility] [place] [address] * (ABNORMAL) Blood gas, arterial (07/29/2024 12:31 AM CDT) pH, Art 7.47(H) 7.35 - 7.45 PCO2, Arterial 41 35 - 45 mmHg [facility] PO2, Arterial 156(H) 83 - 108 mmHg [facility] HCO3 Art (Calculated) 31(H) 20 - 30 mmol/L [facility] BE, art 6 mmol/L [facility] Comment: Interpretive Data No Reference Range Established Current Interpretive Data was last revised on 2017 O2 Sat Art (Measured) 100(H) 90 - 95 % [facility] Blood 07/29/2024 12:3 1 AM CDT 07/29/2024 12:46 AM CDT Leonor Quan MD LAB BLOOD ORDERABLES Fi nal Result Performing Organization Address [facility] Co de Phone Number [facility] [place] [address] * Potassium, whole blood (07/29/2024 12:31 AM CDT) Potassium, bld 3.9 3.3 - 4.9 mmol/L Blood 07/29/2024 12:3 1 AM CDT 07/29/2024 12:46 AM CDT Leonor Quan MD LAB BLOOD ORDERABLES Fi nal Result Performing Organization Address City/[facility] Co de Phone Number [facility] [place] [address] * Oxyhemoglobin, pulmonary artery (07/29/2024 12:31 AM CDT) Pathologist [facility] Oxyhemoglobin, PA 81.3 % Comment: Interpretive Data No reference range established. Current interpretive data was last revised 2020. Blood 07/29/2024 12:3 1 AM CDT 07/29/2024 12:46 AM CDT Amber KUNH LAB BLOOD ORDERABLES Fi nal Result Performing Organization Address [facility] de Phone Number [facility] [place] [address] * Phosphorus (07/29/2024 12:31 AM CDT) Phosphorus, pl 3.3 2.3 - 4.5 mg/dL Blood 07/29/2024 12:3 1 AM CDT 07/29/2024 12:52 AM CDT Leonor Quan MD LAB BLOOD ORDERABLES Fi nal Result Performing Organization Address [facility] Co de Phone Number [facility] [place] [address] * Magnesium (07/29/2024 12:31 AM CDT) Magnesium 1.9 1.4 - 2.5 mg/dL Blood 07/29/2024 12:3 1 AM CDT 07/29/2024 12:52 AM CDT Leonor Quan MD LAB BLOOD ORDERABLES Fi nal Result Performing Organization Address City/[facility]/ZIP Co de Phone Number [facility] Department [place] [address] * (ABNORMAL) Basic metabolic panel (07/29/2024 12:31 AM CDT) Pathologist [facility] Sodium 147(H) 135 - 145 mmol/L Potassium, pl 3.8 3.3 - 4.9 mmol/L [facility] Chloride 105 97 - 110 mmol/L [facility] CO2 31 22 - 32 mmol/L [facility] Anion gap 11 2 - 15 mmol/L [facility] BUN 55(H) 6 - 25 mg/dL [facility] Creatinine 1.23 0.80 - 1.30 mg/dL [facility] Glucose 147 70 - 199 mg/dL [facility] Comment: Interpretive Data Fasting glucose >/= [...] 2022. Calcium 8.9 8.5 - 10.3 mg/dL [facility] Blood 07/29/2024 12:3 1 AM CDT 07/29/2024 12:52 AM CDT Leonor Quan MD LAB BLOOD ORDERABLES Fi nal Result Performing Organization Address City/[facility]/ZIP Co de Phone Number [facility] Department [place] [address] * (ABNORMAL) CBC without differential (07/29/2024 12:31 AM CDT) Pathologist [facility] WBC 4.2 3.8 - 9.9 K/cumm Hgb 7.7(L) 13.0 - 17.5 g/dL [facility] Hct 24.0(L) 38.9 - 50.3 % [facility] Plt 67(L) 150 - 400 K/cumm [facility] MPV 10.3 9.1 - 12.3 fL [facility] RBC 2.89(L) 4.30 - 5.80 M/cumm [facility] MCV 83.0 81.3 - 96.4 fL [facility] MCH 26.6(L) 27.1 - 33.3 pg [facility] MCHC 32.1(L) 32.3 - 35.7 g/dL [facility] RDW CV 17.1(H) 11.1 - 14.9 % [facility] RDW SD 50.2(H) 35.7 - 48.1 fL [facility] NRBC abs 0.07(H) 0.00 - 0.01 K/cumm [facility] Blood 07/29/2024 12:3 1 AM CDT 07/29/2024 12:53 AM CDT Leonor Quan MD LAB BLOOD ORDERABLES Fi nal Result Performing Organization Address City/[facility]/ZIP Co de Phone Number [facility] Department [place] [address] * POCT glucose (07/29/2024 12:30 AM CDT) Glucose, POC 147 70 - 199 mg/dL Blood 07/29/2024 12:3 0 AM CDT 07/29/2024 12:30 AM CDT Leonor Quan MD LAB POCT ORDERABLES - D EVICE Final Result Performing Organization Address [facility]/ZIP Co de Phone Number [facility] Department [place] [address] * XR Chest 1 View (07/28/2024 8:12 PM CDT) Anatomical Region Laterality Modality Body, Chest N/A Computed Radiogr aphy 07/29/2024 6:20 AM CDT Impressions 07/29/2024 6:20 AM CDT Median sternotomy plates are again seen. ??The right internal jugular Anderson-Gwen catheter tip is over the right ventricular [...] are again seen. The right internal jugular Anderson-Gwen catheter tip is over the right ventricular [...] 0619. Electronically signed by: Preston Slade M.D. Mala Pineda SUPERVISOR [employer]ADING IMG XR PROCEDURES Final Resu lt * (ABNORMAL) Blood gas, arterial (07/28/2024 7:45 PM CDT) pH, Art 7.47(H) 7.35 - 7.45 PCO2, Arterial 40 35 - 45 mmHg [facility] PO2, Arterial 123(H) 83 - 108 mmHg [facility] HCO3 Art (Calculated) 30 20 - 30 mmol/L [facility] BE, art 5 mmol/L [facility] Comment: Interpretive Data No Reference Range Established Current Interpretive Data was last revised on 2017 O2 Sat Art (Measured) 99(H) 90 - 95 % [facility] Blood 07/28/2024 7:45 PM CDT 07/28/2024 7:51 PM CDT Leonor Quan MD LAB BLOOD ORDERABLES Fi nal Result Performing Organization Address [facility] Co de Phone Number [facility] Department [place] [address] * Oxyhemoglobin, pulmonary artery (07/28/2024 7:45 PM CDT) Oxyhemoglobin, PA 54.2 % Comment: Interpretive Data No reference range established. Current interpretive data was last revised 2020. Blood 07/28/2024 7:45 PM CDT 07/28/2024 7:52 PM CDT Amber KUHN LAB BLOOD ORDERABLES Fi nal Result [facility] [place] [address] * (ABNORMAL) Hemoglobin total, pulmonary artery (07/28/2024 7:45 PM CDT) Hemoglobin total, PA 9.7(L) 13.0 - 17.5 g/dL Blood 07/28/2024 7:45 PM CDT 07/28/2024 7:52 PM CDT Amber KUHN LAB BLOOD ORDERABLES Fi nal Result Performing Organization Address [facility] [place] [address] * Potassium, whole blood (07/28/2024 7:45 PM CDT) [facility] [address] Potassium, bld 3.6 3.3 - 4.9 mmol/L Blood 07/28/2024 7:45 PM CDT 07/28/2024 7:51 PM CDT Leonor Quan MD LAB BLOOD ORDERABLES Fi nal Result Performing Organization Address [facility] Co de Phone Number [facility] [place] [address] * POCT glucose (07/28/2024 7:42 PM CDT) Glucose, POC 173 70 - 199 mg/dL Blood 07/28/2024 7:42 PM CDT 07/28/2024 7:42 PM CDT Leonor Quan MD LAB POCT ORDERABLES - D EVICE Final Result Performing Organization Address [facility] Co de Phone Number [facility] [place] [address] * Critical Care (07/28/2024 7:27 PM CDT) [...] plan with the ICU team and other medical/reporting process consultant staff, making frequent assessments and decisions [...] 5:57 PM CDT 07/28/2024 5:57 PM CDT us Leonor Quan MD LAB POCT ORDERABLES - D EVICE Final Result [facility] Department [place] [address] * POCT glucose (07/28/2024 4:09 PM CDT) Glucose, POC 187 70 - 199 mg/dL Blood 07/28/2024 4:09 PM CDT 07/28/2024 4:09 PM CDT Leonor Quan MD LAB POCT ORDERABLES - D EVICE Final Result Performing Organization Address [facility] Co de Phone Number [facility] Department [place] [address] * (ABNORMAL) Hemoglobin total, central venous (07/28/2024 4:06 PM CDT) [facility] [address] Hemoglobin total, CV 10.1(L) 13.0 - 17.5 g/dL Blood 07/28/2024 4:06 PM CDT 07/28/2024 4:29 PM CDT Amber KUHN LAB BLOOD ORDERABLES Fi nal Result Performing Organization Address [facility] de Phone Number [facility] Department [place] [address] * Oxyhemoglobin, central venous (07/28/2024 4:06 PM CDT) [facility] [address] Oxyhemoglobin, CV 66.8 % Comment: Interpretive Data No reference range established. Current interpretive data was last revised 2020. Blood 07/28/2024 4:06 PM CDT 07/28/2024 4:29 PM CDT Leonor Quan MD LAB BLOOD ORDERABLES Fi nal Result Performing Organization Address [facility] Co de Phone Number [facility] [place] [address] * (ABNORMAL) Blood gas, arterial (07/28/2024 4:06 PM CDT) Pathologist [facility] pH, Art 7.47(H) 7.35 - 7.45 PCO2, Arterial 39 35 - 45 mmHg [facility] PO2, Arterial 132(H) 83 - 108 mmHg [facility] HCO3 Art (Calculated) 29 20 - 30 mmol/L [facility] BE, art 4 mmol/L [facility] Comment: Interpretive Data No Reference Range Established Current Interpretive Data was last revised on 2017 O2 Sat Art (Measured) 100(H) 90 - 95 % [facility] Blood 07/28/2024 4:06 PM CDT 07/28/2024 4:29 PM CDT Leonor Quan MD LAB BLOOD ORDERABLES Fi nal Result Performing Organization Address [facility] Co de Phone Number [facility] Department [place] [address] * Potassium, whole blood (07/28/2024 4:06 PM CDT) [facility] [address] [facility] Potassium, bld 3.5 3.3 - 4.9 mmol/L Blood 07/28/2024 4:06 PM CDT 07/28/2024 4:29 PM CDT Leonor Quan MD LAB BLOOD ORDERABLES Fi nal Result Performing Organization Address [facility] Co de Phone Number [facility] Department [place] [address] * POCT glucose (07/28/2024 12:08 PM CDT) [facility] [address] Glucose, POC 182 70 - 199 mg/dL Blood 07/28/2024 12:0 8 PM CDT 07/28/2024 12:08 PM CDT Leonor Quan MD LAB POCT ORDERABLES - D EVICE Final Result Performing Organization Address [facility] de Phone Number [facility] Department [place] [address] * Potassium, whole blood (07/28/2024 12:08 PM CDT) Potassium, bld 3.8 3.3 - 4.9 mmol/L Blood 07/28/2024 12:0 8 PM CDT 07/28/2024 12:17 PM CDT Narrative [facility] - 07/28/2024 12:22 PM CDT While on Bumex infusion Mala Tonsor SUPERVISOR [employer]ADING LAB BLOOD ORDERABLES Final R esult Performing Organization Address City/[facility]/ZIP Co de Phone Number [facility] [place] [address] * POCT glucose (07/28/2024 7:43 AM CDT) Glucose, POC 154 70 - 199 mg/dL Blood 07/28/2024 7:43 AM CDT 07/28/2024 7:43 AM CDT Leonor Quan MD LAB POCT ORDERABLES - D EVICE Final Result Performing Organization Address City/[facility]/ZIP Co de Phone Number [facility] [place] [address] * Potassium, whole blood (07/28/2024 7:37 AM CDT) Potassium, bld 3.9 3.3 - 4.9 mmol/L Blood 07/28/2024 7:37 AM CDT 07/28/2024 7:49 AM CDT Narrative [facility] - 07/28/2024 7:56 AM CDT While on Bumex infusion Mala Tonsor SUPERVISOR [employer]ING LAB BLOOD ORDERABLES Final R esult [facility] Department [place] [address] * Critical Care (07/28/2024 7:32 AM CDT) [...] plan with the ICU team and other medical/reporting process consultant staff, making frequent assessments and decisions [...] ORDERABLES - D EVICE Final Result [facility] Department [place] [address] * Potassium, whole blood (07/28/2024 4:10 AM CDT) [facility] Potassium, bld 3.8 3.3 - 4.9 mmol/L Blood 07/28/2024 4:10 AM CDT 07/28/2024 4:21 AM CDT Narrative [facility] - 07/28/2024 4:26 AM CDT While on Bumex infusion Mala Pineda SUPERVISOR [employer]ING LAB BLOOD ORDERABLES Final R esult [facility] Department [place] [address] * eGFR (07/28/2024 12:03 AM CDT) [facility] eGFR 70 >=60 mL/min/1. 73 m2 Comment: [...] 3 AM CDT 07/28/2024 12:19 AM CDT Amber KUHN LAB BLOOD ORDERABLES Fi nal Result Performing Organization Address City/[facility] de Phone Number [facility] Department [place] [address] * Lactate (07/28/2024 12:03 AM CDT) Lactate 1.4 0.7 - 2.0 mmol/L Blood 07/28/2024 12:0 3 AM CDT 07/28/2024 12:18 AM CDT Leonor Quan MD LAB BLOOD ORDERABLES Fi nal Result Performing Organization Address [facility] de Phone Number [facility] [place] [address] * (ABNORMAL) Blood gas, arterial (07/28/2024 12:03 AM CDT) pH, Art 7.42 7.35 - 7.45 PCO2, Arterial 42 35 - 45 mmHg [facility] PO2, Arterial 83 83 - 108 mmHg [facility] HCO3 Art (Calculated) 28 20 - 30 mmol/L [facility] BE, art 3 mmol/L [facility] Comment: Interpretive Data No Reference Range Established Current Interpretive Data was last revised on 2017 O2 Sat Art (Measured) 97(H) 90 - 95 % [facility] Blood 07/28/2024 12:0 3 AM CDT 07/28/2024 12:09 AM CDT Leonor Quan MD LAB BLOOD ORDERABLES Fi nal Result Performing Organization Address [facility] de Phone Number [facility] [place] [address] * (ABNORMAL) Hemoglobin total, pulmonary artery (07/28/2024 12:03 AM CDT) Hemoglobin total, PA 8.4(L) 13.0 - 17.5 g/dL Blood 07/28/2024 12:0 3 AM CDT 07/28/2024 12:09 AM CDT Amber KUHN LAB BLOOD [place] [address] * Oxyhemoglobin, pulmonary artery (07/28/2024 12:03 AM CDT) Pathologist [facility] Oxyhemoglobin, PA 74.3 % Comment: Interpretive Data No reference range established. Current interpretive data was last revised 2020. Blood 07/28/2024 12:0 3 AM CDT 07/28/2024 12:09 AM CDT Amber KUHN LAB BLOOD ORDERABLES Fi nal Result [facility] [place] [address] * Phosphorus (07/28/2024 12:03 AM CDT) Phosphorus, pl 3.4 2.3 - 4.5 mg/dL Blood 07/28/2024 12:0 3 AM CDT 07/28/2024 12:19 AM CDT Leonor Quan MD LAB BLOOD ORDERABLES Fi nal Result [facility] [place] [address] * Magnesium (07/28/2024 12:03 AM CDT) Pathologist [facility] Magnesium 1.8 1.4 - 2.5 mg/dL Blood 07/28/2024 12:0 3 AM CDT 07/28/2024 12:19 AM CDT us Leonor Quan MD LAB BLOOD ORDERABLES Fi nal Result [facility] Department [place] [address] * (ABNORMAL) Basic metabolic panel (07/28/2024 12:03 AM CDT) Pathologist [facility] Sodium 145 135 - 145 mmol/L Potassium, pl 3.9 3.3 - 4.9 mmol/L [facility] Chloride 105 97 - 110 mmol/L [facility] CO2 30 22 - 32 mmol/L [facility] Anion gap 10 2 - 15 mmol/L [facility] BUN 47(H) 6 - 25 mg/dL [facility] Creatinine 1.12 0.80 - 1.30 mg/dL [facility] Glucose 187 70 - 199 mg/dL [facility] Comment: Interpretive Data Fasting glucose >/= [...] 2022. Calcium 8.8 8.5 - 10.3 mg/dL [facility] Blood 07/28/2024 12:0 3 AM CDT 07/28/2024 12:19 AM CDT Leonor Quan MD LAB BLOOD ORDERABLES Fi nal Result [facility] Department [place] [address] * (ABNORMAL) CBC without differential (07/28/2024 12:03 AM CDT) WBC 8.6 3.8 - 9.9 K/cumm Hgb 8.1(L) 13.0 - 17.5 g/dL [facility] Hct 25.5(L) 38.9 - 50.3 % [facility] Plt 75(L) 150 - 400 K/cumm [facility] MPV 10.3 9.1 - 12.3 fL [facility] RBC 3.05(L) 4.30 - 5.80 M/cumm [facility] MCV 83.6 81.3 - 96.4 fL [facility] MCH 26.6(L) 27.1 - 33.3 pg [facility] MCHC 31.8(L) 32.3 - 35.7 g/dL [facility] RDW CV 17.1(H) 11.1 - 14.9 % [facility] RDW SD 50.9(H) 35.7 - 48.1 fL [facility] NRBC abs 0.02(H) 0.00 - 0.01 K/cumm [facility] Blood 07/28/2024 12:0 3 AM CDT 07/28/2024 12:19 AM CDT us Leonor Quan MD LAB BLOOD ORDERABLES Fi nal Result [facility] Department [place] [address] * Potassium, whole blood (07/28/2024 12:03 AM CDT) Pathologist [facility] Potassium, bld 3.8 3.3 - 4.9 mmol/L Blood 07/28/2024 12:0 3 AM CDT 07/28/2024 12:09 AM CDT Narrative [facility] - 07/28/2024 12:20 AM CDT While on Bumex infusion Mala Pineda NP LAB BLOOD ORDERABLES Final R esult Performing Organization Address [facility] Co de Phone Number [facility] [place] [address] * POCT glucose (07/27/2024 11:50 PM CDT) Glucose, POC 186 70 - 199 mg/dL Blood 07/27/2024 11:5 0 PM CDT 07/27/2024 11:50 PM CDT Leonor Quan MD LAB POCT ORDERABLES - D EVICE Final Result Performing Organization Address [facility] Co de Phone Number [facility] Department [place] [address] * POCT glucose (07/27/2024 8:47 PM CDT) Glucose, POC 193 70 - 199 mg/dL Blood 07/27/2024 8:47 PM CDT 07/27/2024 8:47 PM CDT Leonor Quan MD LAB POCT ORDERABLES - D EVICE Final Result Performing Organization Address [facility] [place] [address] * (ABNORMAL) Blood gas, arterial (07/27/2024 8:47 PM CDT) pH, Art 7.46(H) 7.35 - 7.45 PCO2, Arterial 38 35 - 45 mmHg [facility] PO2, Arterial 137(H) 83 - 108 mmHg [facility] HCO3 Art (Calculated) 28 20 - 30 mmol/L [facility] BE, art 3 mmol/L [facility] Comment: Interpretive Data No Reference Range Established Current Interpretive Data was last revised on 2017 O2 Sat Art (Measured) 100(H) 90 - 95 % [facility] Blood 07/27/2024 8:47 PM CDT 07/27/2024 9:03 PM CDT Leonor Quan MD LAB BLOOD ORDERABLES Fi nal Result Performing Organization Address City/[facility] Co de Phone Number [facility] Department [place] [address] * Potassium, whole blood (07/27/2024 8:47 PM CDT) Pathologist [facility] Potassium, bld 3.7 3.3 - 4.9 mmol/L Blood 07/27/2024 8:47 PM CDT 07/27/2024 9:03 PM CDT Narrative [facility] - 07/27/2024 9:06 PM CDT While on Bumex infusion Mala Pineda NP LAB BLOOD ORDERABLES Final R esult Performing Organization Address [facility] de Phone Number [facility] Department [place] [address] * XR Chest 1 View (07/27/2024 8:44 [...] it. Electronically signed by: Serafin Terrell M.D. Mala Pineda SUPERVISOR [employer] IMG XR PROCEDURES Final Resu lt * [...] plan with the ICU team and other medical/reporting process consultant staff, making frequent assessments and decisions [...] spent time documenting in the medical record Peggy KUHN IN CLINIC/BEDSIDE ORDERA BLES Final Result * POCT glucose (07/27/2024 5:53 PM CDT) Glucose, POC 197 70 - 199 mg/dL Blood 07/27/2024 5:53 PM CDT 07/27/2024 5:53 PM CDT Result [facility] Leonor Quan MD LAB POCT ORDERABLES - D EVICE Final Result Performing Organization Address [facility] Co de Phone Number [facility] Department [place] [address] * (ABNORMAL) POCT glucose (07/27/2024 4:38 PM CDT) Glucose, POC 217(H) 70 - 199 mg/dL Blood 07/27/2024 4:38 PM CDT 07/27/2024 4:38 PM CDT Result [facility] Leonor Quan MD LAB POCT ORDERABLES - D EVICE Final Result Performing Organization Address City/[facility] Co de Phone Number [facility] Department [place] [address] * Type and screen (07/27/2024 4:30 PM CDT) Janell, indirect Negative ABO Rh O Positive [facility] Blood 07/27/2024 4:30 PM CDT 07/27/2024 5:42 PM CDT Narrative [facility] - 07/27/2024 6:40 PM CDT Has the patient had Daratumumab or Isatuximab in the past 6 months?->Unknown Leonor Quan MD LAB BLOOD BANK TEST ORD ERABLES Final Result Performing Organization Address City/[facility]/ZIP Co de Phone Number [facility] [place] [address] * Potassium, whole blood (07/27/2024 4:30 PM CDT) Pathologist [facility] Potassium, bld 3.8 3.3 - 4.9 mmol/L Blood 07/27/2024 4:30 PM CDT 07/27/2024 5:12 PM CDT Narrative [facility] - 07/27/2024 5:18 PM CDT While on Bumex infusion Mala Pineda NP LAB BLOOD ORDERABLES Final R esult Performing Organization Address City/[facility]/ZIP Co de Phone Number [facility] [place] [address] * POCT glucose (07/27/2024 12:02 PM CDT) Glucose, POC 187 70 - 199 mg/dL Blood 07/27/2024 12:0 2 PM CDT 07/27/2024 12:02 PM CDT Leonor Quan MD LAB POCT ORDERABLES - D EVICE Final Result Performing Organization Address City/[facility]/ZIP Co de Phone Number [facility] [place] [address] * Potassium, whole blood (07/27/2024 12:00 PM CDT) Potassium, bld 4.2 3.3 - 4.9 mmol/L Blood 07/27/2024 12:0 0 PM CDT 07/27/2024 12:11 PM CDT Leonor Quan MD LAB BLOOD ORDERABLES Fi nal Result Performing Organization Address [facility] de Phone Number [facility] Department [place] [address] * (ABNORMAL) Blood gas, arterial (07/27/2024 12:00 PM CDT) Pathologist [facility] pH, Art 7.46(H) 7.35 - 7.45 PCO2, Arterial 35 35 - 45 mmHg [facility] PO2, Arterial 146(H) 83 - 108 mmHg [facility] HCO3 Art (Calculated) 26 20 - 30 mmol/L [facility] BE, art 1 mmol/L [facility] Comment: Interpretive Data No Reference Range Established Current Interpretive Data was last revised on 2017 O2 Sat Art (Measured) 100(H) 90 - 95 % [facility] Blood 07/27/2024 12:0 0 PM CDT 07/27/2024 12:11 PM CDT Leonor Quan MD LAB BLOOD ORDERABLES Fi nal Result Performing Organization Address [facility] de Phone Number [facility] Department [place] [address] * Lactate (07/27/2024 9:28 AM CDT) Pathologist [facility] Lactate 1.7 0.7 - 2.0 mmol/L Blood 07/27/2024 9:28 AM CDT 07/27/2024 9:51 AM CDT Result [facility] Leonor Quan MD LAB BLOOD ORDERABLES Fi nal Result Performing Organization Address [facility] de Phone Number [facility] [place] [address] * Oxyhemoglobin, central venous (07/27/2024 9:28 AM CDT) Oxyhemoglobin, CV 63.4 % Comment: Interpretive Data No reference range established. Current interpretive data was last revised 2020. Blood 07/27/2024 9:28 AM CDT 07/27/2024 9:43 AM CDT Leonor Quan MD LAB BLOOD ORDERABLES Fi nal Result Performing Organization Address [facility] [place] [address] * (ABNORMAL) Blood gas, arterial (07/27/2024 9:28 AM CDT) pH, Art 7.41 7.35 - 7.45 PCO2, Arterial 40 35 - 45 mmHg [facility] PO2, Arterial 143(H) 83 - 108 mmHg [facility] HCO3 Art (Calculated) 26 20 - 30 mmol/L [facility] BE, art 1 mmol/L [facility] Comment: Interpretive Data No Reference Range Established Current Interpretive Data was last revised on 2017 O2 Sat Art (Measured) 100(H) 90 - 95 % [facility] Blood 07/27/2024 9:28 AM CDT 07/27/2024 9:43 AM CDT Leonor Quan MD LAB BLOOD ORDERABLES Fi nal Result Performing Organization Address [facility] [place] [address] * (ABNORMAL) Hemoglobin total, central venous (07/27/2024 9:28 AM CDT) Hemoglobin total, CV 8.9(L) 13.0 - 17.5 g/dL Blood 07/27/2024 9:28 AM CDT 07/27/2024 9:43 AM CDT Amber KUHN LAB BLOOD ORDERABLES Fi nal Result Performing Organization Address City/[facility] Co de Phone Number [facility] [place] [address] * POCT glucose (07/27/2024 9:18 AM CDT) [facility] [address] [facility] Glucose, POC 155 70 - 199 mg/dL Blood 07/27/2024 9:18 AM CDT 07/27/2024 9:18 AM CDT Leonor Quan MD LAB POCT ORDERABLES - D EVICE Final Result Performing Organization Address [facility] Co de Phone Number [facility] [place] [address] * POCT glucose (07/27/2024 7:41 AM CDT) [facility] [address] Glucose, POC 157 70 - 199 mg/dL Blood 07/27/2024 7:41 AM CDT 07/27/2024 7:41 AM CDT Leonor Quan MD LAB POCT ORDERABLES - D EVICE Final Result Performing Organization Address City/[facility] de Phone Number [facility] [place] [address] * Potassium, whole blood (07/27/2024 7:41 AM CDT) [facility] [address] Potassium, bld 4.2 3.3 - 4.9 mmol/L Blood 07/27/2024 7:41 AM CDT 07/27/2024 7:46 AM CDT Narrative GILLIAN ERAZO - 07/27/2024 7:49 AM CDT While on Bumex infusion Mala Pineda NP LAB BLOOD ORDERABLES Final R esult [facility] [place] [address] * Critical Care (07/27/2024 7:22 AM CDT) [...] plan with the ICU team and other medical/reporting process consultant staff, making frequent assessments and decisions [...] 6:57 AM CDT 07/27/2024 6:57 AM CDT Leonor Quan MD LAB POCT ORDERABLES - D EVICE Final Result Performing Organization Address [facility] Co de Phone Number [facility] [place] [address] * POCT glucose (07/27/2024 6:13 AM CDT) Pathologist [facility] Glucose, POC 93 70 - 199 mg/dL Blood 07/27/2024 6:13 AM CDT 07/27/2024 6:13 AM CDT Leonor Quan MD LAB POCT ORDERABLES - D EVICE Final Result Performing Organization Address [facility] de Phone Number [facility] [place] [address] * (ABNORMAL) Hemoglobin total, central venous (07/27/2024 3:58 AM CDT) [facility] [address] Hemoglobin total, CV 8.7(L) 13.0 - 17.5 g/dL Blood 07/27/2024 3:58 AM CDT 07/27/2024 4:06 AM CDT Amber KUHN LAB BLOOD ORDERABLES Fi nal Result Performing Organization Address City/[facility] Co de Phone Number [facility] [place] [address] * (ABNORMAL) Blood gas, arterial (07/27/2024 3:58 AM CDT) pH, Art 7.40 7.35 - 7.45 PCO2, Arterial 39 35 - 45 mmHg [facility] PO2, Arterial 103 83 - 108 mmHg [facility] HCO3 Art (Calculated) 25 20 - 30 mmol/L [facility] BE, art 0 mmol/L [facility] Comment: Interpretive Data No Reference Range Established Current Interpretive Data was last revised on 2017 O2 Sat Art (Measured) 99(H) 90 - 95 % [facility] Blood 07/27/2024 3:58 AM CDT 07/27/2024 4:06 AM CDT Leonor Quan MD LAB BLOOD ORDERABLES Fi nal Result Performing Organization Address City/[facility] Co de Phone Number [facility] [place] [address] * Oxyhemoglobin, central venous (07/27/2024 3:58 AM CDT) Oxyhemoglobin, CV 60.5 % Comment: Interpretive Data No reference range established. Current interpretive data was last revised 2020. Blood 07/27/2024 3:58 AM CDT 07/27/2024 4:06 AM CDT Leonor Quan MD LAB BLOOD ORDERABLES Fi nal Result Performing Organization Address [facility] Co de Phone Number [facility] [place] [address] * Potassium, whole blood (07/27/2024 3:58 AM CDT) Potassium, bld 4.0 3.3 - 4.9 mmol/L Blood 07/27/2024 3:58 AM CDT 07/27/2024 4:06 AM CDT Narrative [facility] - 07/27/2024 4:14 AM CDT While on Bumex infusion Mala Pineda NP LAB BLOOD ORDERABLES Final R esult Performing Organization Address [facility] Co de Phone Number [facility] [place] [address] * POCT glucose (07/27/2024 3:55 AM CDT) Glucose, POC 115 70 - 199 mg/dL Blood 07/27/2024 3:55 AM CDT 07/27/2024 3:55 AM CDT Leonor Quan MD LAB POCT ORDERABLES - D EVICE Final Result Performing Organization Address City/[facility] de Phone Number [facility] [place] [address] * POCT glucose (07/27/2024 2:30 AM CDT) Glucose, POC 125 70 - 199 mg/dL Blood 07/27/2024 2:30 AM CDT 07/27/2024 2:30 AM CDT Leonor Quan MD LAB POCT ORDERABLES - D EVICE Final Result Performing Organization Address [facility] de Phone Number [facility] [place] [address] * POCT glucose (07/27/2024 12:09 AM CDT) Glucose, POC 123 70 - 199 mg/dL Blood 07/27/2024 12:0 9 AM CDT 07/27/2024 12:09 AM CDT Leonor Quan MD LAB POCT ORDERABLES - D EVICE Final Result Performing Organization Address [facility] [place] [address] * eGFR (07/27/2024 12:03 AM CDT) eGFR [...] ORDERABLES Fi nal Result Performing Organization Address City/State/[facility] Co de Phone Number [facility] [place] [address] * (ABNORMAL) Hemoglobin total, central venous (07/27/2024 12:03 AM CDT) Hemoglobin total, CV 8.3(L) 13.0 - 17.5 g/dL Blood 07/27/2024 12:0 3 AM CDT 07/27/2024 12:20 AM CDT Amber KUHN LAB BLOOD ORDERABLES Fi nal Result Performing Organization Address City/[facility]/ZIP Co de Phone Number [facility] [place] [address] * (ABNORMAL) Blood gas, arterial (07/27/2024 12:03 AM CDT) pH, Art 7.39 7.35 - 7.45 PCO2, Arterial 40 35 - 45 mmHg [facility] PO2, Arterial 161(H) 83 - 108 mmHg [facility] HCO3 Art (Calculated) 25 20 - 30 mmol/L [facility] BE, art -1 mmol/L [facility] Comment: Interpretive Data No Reference Range Established Current Interpretive Data was last revised on 2017 O2 Sat Art (Measured) 100(H) 90 - 95 % [facility] Blood 07/27/2024 12:0 3 AM CDT 07/27/2024 12:20 AM CDT Leonor Quan MD LAB BLOOD ORDERABLES Fi nal Result Performing Organization Address [facility] Co de Phone Number [facility] [place] [address] * Oxyhemoglobin, central venous (07/27/2024 12:03 AM CDT) Oxyhemoglobin, CV 66.5 % Comment: Interpretive Data No reference range established. Current interpretive data was last revised 2020. Blood 07/27/2024 12:0 3 AM CDT 07/27/2024 12:20 AM CDT Leonor Quan MD LAB BLOOD ORDERABLES Fi nal Result Performing Organization Address City/[facility] Co de Phone Number [facility] [place] [address] * Potassium, whole blood (07/27/2024 12:03 AM CDT) Potassium, bld 4.2 3.3 - 4.9 mmol/L Blood 07/27/2024 12:0 3 AM CDT 07/27/2024 12:20 AM CDT Narrative [facility] - 07/27/2024 12:34 AM CDT While on Bumex infusion Mala Pineda [employer] LAB BLOOD ORDERABLES Final R esult Performing Organization Address City/[facility]/ZIP Co de Phone Number [facility] [place] [address] * Phosphorus (07/27/2024 12:03 AM CDT) Pathologist [facility] Phosphorus, pl 3.0 2.3 - 4.5 mg/dL Blood 07/27/2024 12:0 3 AM CDT 07/27/2024 12:27 AM CDT Leonor Quan MD LAB BLOOD ORDERABLES Fi nal Result Performing Organization Address [facility] Co de Phone Number [facility] [place] [address] * Magnesium (07/27/2024 12:03 AM CDT) Pathologist [facility] Magnesium 1.9 1.4 - 2.5 mg/dL Blood 07/27/2024 12:0 3 AM CDT 07/27/2024 12:27 AM CDT Leonor Quan MD LAB BLOOD ORDERABLES Fi nal Result Performing Organization Address City/[facility] Co de Phone Number [facility] [place] [address] * (ABNORMAL) Basic metabolic panel (07/27/2024 12:03 AM CDT) Pathologist [facility] Sodium 138 135 - 145 mmol/L Potassium, pl 4.4 3.3 - 4.9 mmol/L [facility] Chloride 103 97 - 110 mmol/L [facility] CO2 26 22 - 32 mmol/L [facility] Anion gap 9 2 - 15 mmol/L [facility] BUN 38(H) 6 - 25 mg/dL [facility] Creatinine 1.08 0.80 - 1.30 mg/dL [facility] Glucose 153 70 - 199 mg/dL [facility] Comment: Interpretive Data Fasting glucose >/= [...] 2022. Calcium 8.6 8.5 - 10.3 mg/dL [facility] Blood 07/27/2024 12:0 3 AM CDT 07/27/2024 12:27 AM CDT us Leonor Quan MD LAB BLOOD ORDERABLES Fi nal Result [facility] [place] [address] * (ABNORMAL) CBC without differential (07/27/2024 12:03 AM CDT) Pathologist [facility] WBC 11.2(H) 3.8 - 9.9 K/cumm Hgb 8.1(L) 13.0 - 17.5 g/dL [facility] Hct 25.5(L) 38.9 - 50.3 % [facility] Plt 62(L) 150 - 400 K/cumm [facility] MPV 10.0 9.1 - 12.3 fL [facility] RBC 3.04(L) 4.30 - 5.80 M/cumm [facility] MCV 83.9 81.3 - 96.4 fL [facility] MCH 26.6(L) 27.1 - 33.3 pg [facility] MCHC 31.8(L) 32.3 - 35.7 g/dL [facility] RDW CV 16.7(H) 11.1 - 14.9 % [facility] RDW SD 50.9(H) 35.7 - 48.1 fL [facility] NRBC abs 0.00 0.00 - 0.01 K/cumm [facility] Blood 07/27/2024 12:0 3 AM CDT 07/27/2024 12:27 AM CDT Leonor Quan MD LAB BLOOD ORDERABLES Fi nal Result Performing Organization Address City/[facility] Co de Phone Number [facility] [place] [address] * POCT glucose (07/26/2024 11:09 PM CDT) Glucose, POC 114 70 - 199 mg/dL Blood 07/26/2024 11:0 9 PM CDT 07/26/2024 11:09 PM CDT Leonor Quan MD LAB POCT ORDERABLES - D EVICE Final Result Performing Organization Address [facility] Co de Phone Number [facility] [place] [address] * POCT glucose (07/26/2024 10:09 PM CDT) Glucose, POC 142 70 - 199 mg/dL Blood 07/26/2024 10:0 9 PM CDT 07/26/2024 10:09 PM CDT Leonor Quan MD LAB POCT ORDERABLES - D EVICE Final Result Performing Organization Address City/[facility] Co de Phone Number [facility] [place] [address] * POCT glucose (07/26/2024 8:55 PM CDT) Glucose, POC 150 70 - 199 mg/dL Blood 07/26/2024 8:55 PM CDT 07/26/2024 8:55 PM CDT us Leonor Quan MD LAB POCT ORDERABLES - D EVICE Final Result [facility] [place] [address] * XR Chest 1 View (07/26/2024 8:38 [...] it. Electronically signed by: Altagracia Stafford M.D. Mala Pineda [employer] IMG XR PROCEDURES Final Resu lt * POCT glucose (07/26/2024 8:02 PM CDT) [facility] [address] Glucose, POC 94 70 - 199 mg/dL Blood 07/26/2024 8:02 PM CDT 07/26/2024 8:02 PM CDT Leonor Quan MD LAB POCT ORDERABLES - D DEANICE Final Result [facility] Department [place] [employer] [place] [address] * (ABNORMAL) Hemoglobin total, central venous (07/26/2024 7:04 PM CDT) [facility] [address] Hemoglobin total, CV 7.9(L) 13.0 - 17.5 g/dL Blood 07/26/2024 7:04 PM CDT 07/26/2024 7:11 PM CDT Amber KUHN LAB BLOOD ORDERABLES Fi nal Result [facility] Department [place] [employer] [place] [address] * Oxyhemoglobin, central venous (07/26/2024 7:04 PM CDT) [facility] [address] Oxyhemoglobin, CV 67.3 % Comment: Interpretive Data No reference range established. Current interpretive data was last revised 2020. Blood 07/26/2024 7:04 PM CDT 07/26/2024 7:11 PM CDT Leonor Quan MD LAB BLOOD ORDERABLES Fi nal Result Performing Organization Address [facility] de Phone Number [facility] Department [place] [address] * (ABNORMAL) Blood gas, arterial (07/26/2024 7:04 PM CDT) pH, Art 7.37 7.35 - 7.45 PCO2, Arterial 40 35 - 45 mmHg [facility] PO2, Arterial 94 83 - 108 mmHg [facility] HCO3 Art (Calculated) 24 20 - 30 mmol/L [facility] BE, art -2 mmol/L [facility] Comment: Interpretive Data No Reference Range Established Current Interpretive Data was last revised on 2017 O2 Sat Art (Measured) 98(H) 90 - 95 % [facility] Blood 07/26/2024 7:04 PM CDT 07/26/2024 7:11 PM CDT Leonor Quan MD LAB BLOOD ORDERABLES Fi nal Result Performing Organization Address City/[facility] Co de Phone Number [facility] Department [place] [address] * Potassium, whole blood (07/26/2024 7:04 PM CDT) Potassium, bld 4.1 3.3 - 4.9 mmol/L Blood 07/26/2024 7:04 PM CDT 07/26/2024 7:11 PM CDT Narrative [facility] - 07/26/2024 7:18 PM CDT While on Bumex infusion Mala Pineda [employer] LAB BLOOD ORDERABLES Final R esult Performing Organization Address [facility] Co de Phone Number [facility] [place] [address] * POCT glucose (07/26/2024 6:57 PM CDT) Glucose, POC 95 70 - 199 mg/dL Blood 07/26/2024 6:57 PM CDT 07/26/2024 6:57 PM CDT us Leonor Quan MD LAB POCT ORDERABLES - D EVICE Final Result Performing Organization Address [facility] de Phone [facility] [place] [address] * Critical Care (07/26/2024 6:53 PM CDT) [...] plan with the ICU team and other medical/reporting process consultant staff, making frequent assessments and decisions [...] 6:04 PM CDT 07/26/2024 6:04 PM CDT Leonor Quan MD LAB POCT ORDERABLES - D EVICE Final Result [facility] [place] [address] * POCT glucose (07/26/2024 4:57 PM CDT) Glucose, POC 117 70 - 199 mg/dL Blood 07/26/2024 4:57 PM CDT 07/26/2024 4:57 PM CDT Leonor Quan MD LAB POCT ORDERABLES - D EVICE Final Result Performing Organization Address City/[facility]/ZIP Co de Phone Number [facility] [place] [address] * POCT glucose (07/26/2024 4:03 PM CDT) Glucose, POC 113 70 - 199 mg/dL Blood 07/26/2024 4:03 PM CDT 07/26/2024 4:03 PM CDT Leonor Quan MD LAB POCT ORDERABLES - D EVICE Final Result [facility] [place] [address] * Oxyhemoglobin, pulmonary artery (07/26/2024 3:19 PM CDT) Oxyhemoglobin, PA 60.4 % Comment: Interpretive Data No reference range established. Current interpretive data was last revised 2020. Blood 07/26/2024 3:19 PM CDT 07/26/2024 3:26 PM CDT Amber KUHN LAB BLOOD ORDERABLES Fi nal Result Performing Organization Address City/[facility] Co de Phone Number [facility] Department [place] [address] * (ABNORMAL) Hemoglobin total, pulmonary artery (07/26/2024 3:19 PM CDT) Hemoglobin total, PA 8.3(L) 13.0 - 17.5 g/dL Blood 07/26/2024 3:19 PM CDT 07/26/2024 3:26 PM CDT Amber KUHN LAB BLOOD ORDERABLES Fi nal Result Performing Organization Address [facility] Co de Phone Number [facility] Department [place] [address] * POCT glucose (07/26/2024 3:02 PM CDT) Glucose, POC 136 70 - 199 mg/dL Blood 07/26/2024 3:02 PM CDT 07/26/2024 3:02 PM CDT Leonor Quan MD LAB POCT ORDERABLES - D JULIETTE Final Result Performing Organization Address City/[facility] Co de Phone Number [facility] [place] [address] * POCT glucose (07/26/2024 2:03 PM CDT) Glucose, POC 167 70 - 199 mg/dL Blood 07/26/2024 2:03 PM CDT 07/26/2024 2:03 PM CDT Leonor Quan MD LAB POCT ORDERABLES - D EVICE Final Result Performing Organization Address [facility] Co de Phone Number [facility] [place] [address] * (ABNORMAL) Hemoglobin total, central venous (07/26/2024 2:03 PM CDT) Hemoglobin total, CV 8.6(L) 13.0 - 17.5 g/dL Blood 07/26/2024 2:03 PM CDT 07/26/2024 7:11 PM CDT Amber KUHN LAB BLOOD ORDERABLES Fi nal Result Performing Organization Address [facility] Co de Phone Number [facility] [place] [address] * Oxyhemoglobin, central venous (07/26/2024 2:03 PM CDT) Oxyhemoglobin, CV 61.0 % Comment: Interpretive Data No reference range established. Current interpretive data was last revised 2020. Blood 07/26/2024 2:03 PM CDT 07/26/2024 7:11 PM CDT Leonor Quan MD LAB BLOOD ORDERABLES Fi nal Result Performing Organization Address [facility] Co de Phone Number [facility] [place] [address] * POCT glucose (07/26/2024 12:56 PM CDT) Glucose, POC 155 70 - 199 mg/dL Blood 07/26/2024 12:5 6 PM CDT 07/26/2024 12:56 PM CDT Leonor Quan MD LAB POCT ORDERABLES - D EVICE Final Result Performing Organization Address [facility] de Phone [facility] [place] [address] * POCT glucose (07/26/2024 12:03 PM CDT) Glucose, POC 154 70 - 199 mg/dL Blood 07/26/2024 12:0 3 PM CDT 07/26/2024 12:03 PM CDT Leonor Quan MD LAB POCT ORDERABLES - D EVICE Final Result Performing Organization Address [facility] de Phone Number [facility] [place] [address] * POCT glucose (07/26/2024 10:49 AM CDT) Glucose, POC 170 70 - 199 mg/dL Blood 07/26/2024 10:4 9 AM CDT 07/26/2024 10:49 AM CDT Leonor Quan MD LAB POCT ORDERABLES - D EVICE Final Result Performing Organization Address [facility] de Phone Number [facility] Department [place] [address] * POCT glucose (07/26/2024 10:01 AM CDT) Glucose, POC 145 70 - 199 mg/dL Blood 07/26/2024 10:0 1 AM CDT 07/26/2024 10:01 AM CDT Leonor Quan MD LAB POCT ORDERABLES - D EVICE Final Result Performing Organization Address City/[facility] Co de Phone Number [facility] [place] [address] * POCT glucose (07/26/2024 8:47 AM CDT) Glucose, POC 165 70 - 199 mg/dL Blood 07/26/2024 8:47 AM CDT 07/26/2024 8:47 AM CDT Leonor Quan MD LAB POCT ORDERABLES - D EVICE Final Result Performing Organization Address [facility] de Phone Number [facility] [place] [address] * Oxyhemoglobin, pulmonary artery (07/26/2024 8:06 AM CDT) Oxyhemoglobin, [place] 66.4 % Comment: Interpretive Data No reference range established. Current interpretive data was last revised 2020. Blood 07/26/2024 8:06 AM CDT 07/26/2024 8:15 AM CDT Amber KUHN LAB BLOOD ORDERABLES Fi nal Result Performing Organization Address [facility] Co de Phone Number [facility] [place] [address] * (ABNORMAL) Hemoglobin total, pulmonary artery (07/26/2024 8:06 AM CDT) Hemoglobin total, PA 9.8(L) 13.0 - 17.5 g/dL Blood 07/26/2024 8:06 AM CDT 07/26/2024 8:15 AM CDT Amber KUHN LAB BLOOD ORDERABLES Fi nal Result Performing Organization Address [facility] Co de Phone Number [facility] Department [place] [address] * POCT glucose (07/26/2024 7:46 AM CDT) Glucose, POC 175 70 - 199 mg/dL Blood 07/26/2024 7:46 AM CDT 07/26/2024 7:46 AM CDT us Leonor Quan MD LAB POCT ORDERABLES - D EVICE Final Result [facility] [place] [address] * Critical Care (07/26/2024 6:37 AM CDT) [...] plan with the ICU team and other medical/reporting process consultant staff, making frequent assessments and decisions [...] 6:04 AM CDT 07/26/2024 6:04 AM CDT Leonor Quan MD LAB POCT ORDERABLES - D EVICE Final Result Performing Organization Address City/[facility]/ZIP Co de Phone Number [facility] Department [place] [address] * (ABNORMAL) Hemoglobin total, central venous (07/26/2024 4:14 AM CDT) Hemoglobin total, CV 9.3(L) 13.0 - 17.5 g/dL Blood 07/26/2024 4:14 AM CDT 07/26/2024 4:22 AM CDT Amber KUHN LAB BLOOD ORDERABLES Fi nal Result Performing Organization Address [facility] Co de Phone Number [facility] Department [place] [address] * Oxyhemoglobin, central venous (07/26/2024 4:14 AM CDT) Oxyhemoglobin, CV 67.0 % Comment: Interpretive Data No reference range established. Current interpretive data was last revised 2020. Blood 07/26/2024 4:14 AM CDT 07/26/2024 4:22 AM CDT Leonor Quan MD LAB BLOOD ORDERABLES Fi nal Result Performing Organization Address City/[facility] Co de Phone Number [facility] Department [place] [address] * (ABNORMAL) Blood gas, arterial (07/26/2024 4:14 AM CDT) pH, Art 7.37 7.35 - 7.45 PCO2, Arterial 36 35 - 45 mmHg [facility] PO2, Arterial 151(H) 83 - 108 mmHg [facility] HCO3 Art (Calculated) 22 20 - 30 mmol/L [facility] BE, art -4 mmol/L [facility] Comment: Interpretive Data No Reference Range Established Current Interpretive Data was last revised on 2017 O2 Sat Art (Measured) 100(H) 90 - 95 % [facility] Blood 07/26/2024 4:14 AM CDT 07/26/2024 4:22 AM CDT Leonor Quan MD LAB BLOOD ORDERABLES Fi nal Result Performing Organization Address [facility] Co de Phone Number [facility] Department [place] [address] * POCT glucose (07/26/2024 4:12 AM CDT) Glucose, POC 150 70 - 199 mg/dL Blood 07/26/2024 4:12 AM CDT 07/26/2024 4:12 AM CDT us Leonor Quan MD LAB POCT ORDERABLES - D EVICE Final Result Performing Organization Address [facility] Co de Phone Number [facility] Department [place] [address] * POCT glucose (07/26/2024 3:15 AM CDT) Glucose, POC 127 70 - 199 mg/dL Blood 07/26/2024 3:15 AM CDT 07/26/2024 3:15 AM CDT Leonor Quan MD LAB POCT ORDERABLES - D EVICE Final Result Performing Organization Address [facility] Co de Phone Number CERNER [facility] [place] [address] * POCT glucose (07/26/2024 2:04 AM CDT) Pathologist [facility] Glucose, POC 116 70 - 199 mg/dL Blood 07/26/2024 2:04 AM CDT 07/26/2024 2:04 AM CDT Leonor Quan MD LAB POCT ORDERABLES - D EVICE Final Result Performing Organization Address [facility] [place] [address] * POCT glucose (07/26/2024 1:15 AM CDT) [facility] Glucose, POC 100 70 - 199 mg/dL Blood 07/26/2024 1:15 AM CDT 07/26/2024 1:15 AM CDT Leonor Quan MD LAB POCT ORDERABLES - D EVICE Final Result Performing Organization Address [facility] de Phone Number [facility] [place] [address] * eGFR (07/26/2024 12:33 AM CDT) [facility] eGFR 63 >=60 mL/min/1. 73 m2 Comment: [...] 3 AM CDT 07/26/2024 12:53 AM CDT Amber KUHN LAB BLOOD ORDERABLES Fi nal Result Performing Organization Address [facility] de Phone Number [facility] Department [place] [address] * (ABNORMAL) Blood gas, arterial (07/26/2024 12:33 AM CDT) pH, Art 7.34(L) 7.35 - 7.45 PCO2, Arterial 41 35 - 45 mmHg [facility] PO2, Arterial 139(H) 83 - 108 mmHg [facility] HCO3 Art (Calculated) 23 20 - 30 mmol/L [facility] BE, art -3 mmol/L [facility] Comment: Interpretive Data No Reference Range Established Current Interpretive Data was last revised on 2017 O2 Sat Art (Measured) 99(H) 90 - 95 % [facility] Blood 07/26/2024 12:3 3 AM CDT 07/26/2024 12:40 AM CDT Leonor Quan MD LAB BLOOD ORDERABLES Fi nal Result Performing Organization Address [facility] Co de Phone Number [facility] [place] [place] [address] * Oxyhemoglobin, central venous (07/26/2024 12:33 AM CDT) Pathologist [facility] Oxyhemoglobin, CV 69.8 % Comment: Interpretive Data No reference range established. Current interpretive data was last revised 2020. Blood 07/26/2024 12:3 3 AM CDT 07/26/2024 12:40 AM CDT Leonor Quan MD LAB BLOOD ORDERABLES Fi nal Result Performing Organization Address [facility] Co de Phone Number [facility] [place] [address] * Phosphorus (07/26/2024 12:33 AM CDT) [facility] Phosphorus, pl 3.9 2.3 - 4.5 mg/dL Blood 07/26/2024 12:3 3 AM CDT 07/26/2024 12:53 AM CDT Leonor Quan MD LAB BLOOD ORDERABLES Fi nal Result Performing Organization Address [facility] de Phone Number [facility] Department [place] [address] * Magnesium (07/26/2024 12:33 AM CDT) [facility] Magnesium 2.1 1.4 - 2.5 mg/dL Blood 07/26/2024 12:3 3 AM CDT 07/26/2024 12:53 AM CDT Leonor Quan MD LAB BLOOD ORDERABLES Fi nal Result Performing Organization Address [facility] Co de Phone Number [facility] [place] [address] * (ABNORMAL) Basic metabolic panel (07/26/2024 12:33 AM CDT) [facility] Sodium 140 135 - 145 mmol/L Potassium, pl 4.8 3.3 - 4.9 mmol/L [facility] Chloride 107 97 - 110 mmol/L [facility] CO2 22 22 - 32 mmol/L [facility] Anion gap 11 2 - 15 mmol/L [facility] BUN 27(H) 6 - 25 mg/dL [facility] Creatinine 1.22 0.80 - 1.30 mg/dL [facility] Glucose 98 70 - 199 mg/dL [facility] Comment: Interpretive Data Fasting glucose >/= [...] 2022. Calcium 8.5 8.5 - 10.3 mg/dL [facility] Blood 07/26/2024 12:3 3 AM CDT 07/26/2024 12:53 AM CDT us Leonor Quan MD LAB BLOOD ORDERABLES Fi nal Result [facility] Department [place] [address] * (ABNORMAL) CBC without differential (07/26/2024 12:33 AM CDT) [facility] WBC 14.9(H) 3.8 - 9.9 K/cumm Hgb 8.2(L) 13.0 - 17.5 g/dL [facility] Hct 25.1(L) 38.9 - 50.3 % [facility] Plt 77(L) 150 - 400 K/cumm [facility] MPV 9.8 9.1 - 12.3 fL [facility] RBC 3.05(L) 4.30 - 5.80 M/cumm [facility] MCV 82.3 81.3 - 96.4 fL [facility] MCH 26.9(L) 27.1 - 33.3 pg [facility] MCHC 32.7 32.3 - 35.7 g/dL [facility] RDW CV 16.4(H) 11.1 - 14.9 % [facility] RDW SD 49.4(H) 35.7 - 48.1 fL [facility] NRBC abs 0.00 0.00 - 0.01 K/cumm [facility] Blood 07/26/2024 12:3 3 AM CDT 07/26/2024 12:45 AM CDT Leonor Quan MD LAB BLOOD ORDERABLES Fi nal Result Performing Organization Address [facility] Co de Phone Number [facility] Department [place] [address] * POCT glucose (07/26/2024 12:28 AM CDT) Glucose, POC 88 70 - 199 mg/dL Blood 07/26/2024 12:2 8 AM CDT 07/26/2024 12:28 AM CDT Leonor Quan MD LAB POCT ORDERABLES - D EVICE Final Result Performing Organization Address City/[facility]/ZIP Co de Phone Number [facility] Department [place] [address] * POCT glucose (07/25/2024 10:30 PM CDT) Glucose, POC 111 70 - 199 mg/dL Blood 07/25/2024 10:3 0 PM CDT 07/25/2024 10:30 PM CDT Leonor Quan MD LAB POCT ORDERABLES - D EVICE Final Result Performing Organization Address [facility] Co de Phone Number CERNER [facility] Department [place] [address] * XR Chest 1 View (07/25/2024 9:17 [...] mediastinal silhouette is stable. Dictated by: Tone Olosn M.D. The radiology attending physician has personally reviewed this study, and had reviewed and/or edited this written report and agrees with it. Electronically signed by: Roger Rodríguez M.D. us Mala Tonsor [employer] IMG XR PROCEDURES Final Resu lt * (ABNORMAL) Hemoglobin total, central venous (07/25/2024 8:07 PM CDT) Hemoglobin total, CV 8.4(L) 13.0 - 17.5 g/dL Blood 07/25/2024 8:07 PM CDT 07/25/2024 8:16 PM CDT Leonor Quan MD LAB BLOOD ORDERABLES Fi nal Result Performing Organization Address [facility] de Phone Number [facility] Department [place] [address] * (ABNORMAL) Blood gas, arterial (07/25/2024 8:07 PM CDT) [facility] pH, Art 7.32(L) 7.35 - 7.45 PCO2, Arterial 41 35 - 45 mmHg [facility] PO2, Arterial 73(L) 83 - 108 mmHg [facility] HCO3 Art (Calculated) 22 20 - 30 mmol/L [facility] BE, art -5 mmol/L [facility] Comment: Interpretive Data No Reference Range Established Current Interpretive Data was last revised on 2017 O2 Sat Art (Measured) 94 90 - 95 % [facility] Blood 07/25/2024 8:07 PM CDT 07/25/2024 8:16 PM CDT Leonor Quan MD LAB BLOOD ORDERABLES Fi nal Result Performing Organization Address [facility] de Phone Number [facility] Department [place] [address] * (ABNORMAL) Lactate (07/25/2024 8:07 PM CDT) [facility] Lactate 3.6(H) 0.7 - 2.0 mmol/L Blood 07/25/2024 8:07 PM CDT 07/25/2024 8:23 PM CDT Leonor Quan MD LAB BLOOD ORDERABLES Fi nal Result Performing Organization Address [facility] Co de Phone Number [facility] [place] [address] * Oxyhemoglobin, central venous (07/25/2024 8:07 PM CDT) Oxyhemoglobin, CV 63.6 % Comment: Interpretive Data No reference range established. Current interpretive data was last revised 2020. Blood 07/25/2024 8:07 PM CDT 07/25/2024 8:16 PM CDT Leonor Quan MD LAB BLOOD ORDERABLES Fi nal Result Performing Organization Address [facility] Co de Phone Number [facility] [place] [address] * Potassium, whole blood (07/25/2024 8:07 PM CDT) Potassium, bld 4.7 3.3 - 4.9 mmol/L Blood 07/25/2024 8:07 PM CDT 07/25/2024 8:16 PM CDT Amber KUHN LAB BLOOD ORDERABLES Fi nal Result Performing Organization Address [facility] Co de Phone Number [facility] Department [place] [address] * POCT glucose (07/25/2024 8:05 PM CDT) Glucose, POC 119 70 - 199 mg/dL Blood 07/25/2024 8:05 PM CDT 07/25/2024 8:05 PM CDT Leonor Quan MD LAB POCT ORDERABLES - D EVICE Final Result Performing Organization Address [facility] Co de Phone Number [facility] Department [place] [address] * Critical Care (07/25/2024 6:40 PM CDT) [...] plan with the ICU team and other medical/reporting process consultant staff, making frequent assessments and decisions [...] 6:23 PM CDT 07/25/2024 6:23 PM CDT us Leonor Quan MD LAB POCT ORDERABLES - D EVICE Final Result Performing Organization Address City/State/ZIP Co fl Phone Number [facility] Department [place] [address] * POCT glucose (07/25/2024 5:03 PM CDT) Glucose, POC 117 70 - 199 mg/dL Blood 07/25/2024 5:03 PM CDT 07/25/2024 5:03 PM CDT Leonor Quan MD LAB POCT ORDERABLES - [place] [address] * Critical Result Callback Chemistry (07/25/2024 5:02 PM CDT) Pathologist [facility] Date Notified 20240725 Time Notified [address] TestName Lactate [facility] Called/Read Back Kenny [facility] Credentials RN G[facility] Called By DVB [facility] Blood 07/25/2024 5:02 PM CDT 07/25/2024 5:23 PM CDT Amber KUHN LAB BLOOD ORDERABLES Fi nal Result Performing Organization Address [facility] [place] [address] * (ABNORMAL) Hemoglobin total, central venous (07/25/2024 5:02 PM CDT) Pathologist [facility] Hemoglobin total, CV 8.2(L) 13.0 - 17.5 g/dL Blood 07/25/2024 5:02 PM CDT 07/25/2024 5:12 PM CDT Amber KUHN LAB BLOOD ORDERABLES Fi nal Result Performing Organization Address City/[facility]/ZIP Co de Phone Number [facility] [place] [address] * (ABNORMAL) Blood gas, arterial (07/25/2024 5:02 PM CDT) pH, Art 7.30(L) 7.35 - 7.45 PCO2, Arterial 39 35 - 45 mmHg [facility] PO2, Arterial 86 83 - 108 mmHg [facility] HCO3 Art (Calculated) 20 20 - 30 mmol/L [facility] BE, art -6 mmol/L [facility] Comment: Interpretive Data No Reference Range Established Current Interpretive Data was last revised on 2017 O2 Sat Art (Measured) 97(H) 90 - 95 % [facility] Blood 07/25/2024 5:02 PM CDT 07/25/2024 5:12 PM CDT Leonor Quan MD LAB BLOOD ORDERABLES Fi nal Result Performing Organization Address City/[facility]/ZIP Co de Phone Number [facility] Department [place] [address] * Oxyhemoglobin, central venous (07/25/2024 5:02 PM CDT) Pathologist [facility] Oxyhemoglobin, CV 68.7 % Comment: Interpretive Data No reference range established. Current interpretive data was last revised 2020. Blood 07/25/2024 5:02 PM CDT 07/25/2024 5:12 PM CDT Leonor Quan MD LAB BLOOD ORDERABLES Fi nal Result [facility] [place] [address] * (ABNORMAL) Lactate (07/25/2024 5:02 PM CDT) Lactate 5.1(C) 0.7 - 2.0 mmol/L Blood 07/25/2024 5:02 PM CDT 07/25/2024 5:23 PM CDT Leonor Quan MD LAB BLOOD ORDERABLES Fi nal Result Performing Organization Address City/[facility] Co de Phone Number [facility] Department [place] [address] * Potassium, whole blood (07/25/2024 5:02 PM CDT) Potassium, bld 4.5 3.3 - 4.9 mmol/L Blood 07/25/2024 5:02 PM CDT 07/25/2024 5:12 PM CDT Amber KUHN LAB BLOOD ORDERABLES Fi nal Result Performing Organization Address [facility] Co de Phone Number [facility] Department [place] [address] * Potassium, whole blood (07/25/2024 3:25 PM CDT) Potassium, bld 4.5 3.3 - 4.9 mmol/L Blood 07/25/2024 3:25 PM CDT 07/25/2024 3:33 PM CDT Amber KUHN LAB BLOOD ORDERABLES Fi nal Result Performing Organization Address [facility] Co de Phone Number [facility] Department [place] [address] * POCT glucose (07/25/2024 3:24 PM CDT) Glucose, POC 107 70 - 199 mg/dL Blood 07/25/2024 3:24 PM CDT 07/25/2024 3:24 PM CDT Leonor Quan MD LAB POCT ORDERABLES - D EVICE Final Result Performing Organization Address [facility] Co de Phone Number [facility] [place] [address] * (ABNORMAL) Blood gas, arterial (07/25/2024 1:13 PM CDT) Pathologist [facility] pH, Art 7.30(L) 7.35 - 7.45 PCO2, Arterial 38 35 - 45 mmHg [facility] PO2, Arterial 94 83 - 108 mmHg [facility] HCO3 Art (Calculated) 19(L) 20 - 30 mmol/L [facility] BE, art -7 mmol/L [facility] Comment: Interpretive Data No Reference Range Established Current Interpretive Data was last revised on 2017 O2 Sat Art (Measured) 97(H) 90 - 95 % [facility] Blood 07/25/2024 1:13 PM CDT 07/25/2024 1:23 PM CDT Leonor Quan MD LAB BLOOD ORDERABLES Fi nal Result Performing Organization Address City/[facility]/ZIP Co de Phone Number [facility] [place] [address] * Oxyhemoglobin, central venous (07/25/2024 1:13 PM CDT) [facility] Oxyhemoglobin, CV 67.1 % Comment: Interpretive Data No reference range established. Current interpretive data was last revised 2020. Blood 07/25/2024 1:13 PM CDT 07/25/2024 1:23 PM CDT Leonor Quan MD LAB BLOOD [place] [address] * Oxyhemoglobin, pulmonary artery (07/25/2024 1:13 PM CDT) Pathologist [facility] Oxyhemoglobin, PA 58.6 % Comment: Interpretive Data No reference range established. Current interpretive data was last revised 2020. Blood 07/25/2024 1:1 3 PM CDT 07/25/2024 1:23 PM CDT Amber KUHN LAB BLOOD ORDERABLES Fi nal Result Performing Organization Address City/[facility]/ZIP Co de Phone Number [facility] [place] [address] * POCT glucose (07/25/2024 12:40 PM CDT) Glucose, POC 117 70 - 199 mg/dL Blood 07/25/2024 12:4 0 PM CDT 07/25/2024 12:40 PM CDT Leonor Quan MD LAB POCT ORDERABLES - D EVICE Final Result Performing Organization Address [facility] Co de Phone Number [facility] [place] [address] * POCT glucose (07/25/2024 10:16 AM CDT) Glucose, POC 125 70 - 199 mg/dL Blood 07/25/2024 10:1 6 AM CDT 07/25/2024 10:16 AM CDT Leonor Quan MD LAB POCT ORDERABLES - D EVICE Final Result Performing Organization Address City/[facility] Co de Phone Number [facility] [place] [address] * Critical Result Callback Chemistry (07/25/2024 10:13 AM CDT) Date Notified 20240725 Time Notified [address] [facility] TestName Lactate [facility] Called/Read Back Mahesh FR[facility] Credentials NAVIN FR[facility] Called By brandi [facility] Blood 07/25/2024 10:1 3 AM CDT 07/25/2024 10:27 AM CDT Amber KUHN LAB BLOOD ORDERABLES Fi nal Result Performing Organization Address [facility] Co de Phone Number [facility] Department [place] [address] * (ABNORMAL) Blood gas, arterial (07/25/2024 10:13 AM CDT) pH, Art 7.29(L) 7.35 - 7.45 PCO2, Arterial 38 35 - 45 mmHg [facility] PO2, Arterial 71(L) 83 - 108 mmHg [facility] HCO3 Art (Calculated) 19(L) 20 - 30 mmol/L [facility] BE, art -8 mmol/L [facility] Comment: Interpretive Data No Reference Range Established Current Interpretive Data was last revised on 2017 O2 Sat Art (Measured) 93 90 - 95 % [facility] Blood 07/25/2024 10:1 3 AM CDT 07/25/2024 10:28 AM CDT Result [facility] Leonor Quan MD LAB BLOOD ORDERABLES Fi nal Result Performing Organization Address [facility] de Phone Number [facility] Department [place] [address] * Oxyhemoglobin, pulmonary artery (07/25/2024 10:13 AM CDT) Oxyhemoglobin, [place] 48.0 % Comment: Interpretive Data No reference range established. Current interpretive data was last revised 2020. Blood 07/25/2024 10:1 3 AM CDT 07/25/2024 10:23 AM CDT Amber KUHN LAB BLOOD ORDERABLES Fi nal Result Performing Organization Address City/[facility] Co de Phone Number [facility] [place] [address] * (ABNORMAL) Lactate (07/25/2024 10:13 AM CDT) Pathologist [facility] Lactate 5.6(C) 0.7 - 2.0 mmol/L Blood 07/25/2024 10:1 3 AM CDT 07/25/2024 10:27 AM CDT Leonor Quan MD LAB BLOOD ORDERABLES Fi nal Result [facility] [place] [address] * (ABNORMAL) Potassium, whole blood (07/25/2024 10:13 AM CDT) [facility] Potassium, bld 5.2(H) 3.3 - 4.9 mmol/L Blood 07/25/2024 10:1 3 AM CDT 07/25/2024 10:28 AM CDT Amber KUHN LAB BLOOD ORDERABLES Fi nal Result Performing Organization Address City/[facility] Co de Phone Number [facility] Department [place] [address] * (ABNORMAL) POC Blood Gas and Chemistries, Arterial - (07/25/2024 8:02 AM CDT) pH, Art POC 7.26(L) 7.35 - 7.45 pCO2, Art POC 40 35 - 45 mmHg [facility] pO2, Art POC 131(H) 83 - 108 mmHg [facility] Na, POC 139 135 - 145 mmol/L [facility] K POC 5.6(H) 3.3 - 4.9 mmol/L [facility] Comment: Interpretive Data Not all point of care methods assess for hemolysis. Confirm with instrument and retest K+ if not consistent with clinical signs and symptoms. Current Interpretive Data was last revised on 2024. Cl, POC 110 97 - 110 mmol/L [facility] Ionized Ca, POC 4.75 4.50 - 5.10 mg/dL [facility] Glucose, POC 151 70 - 199 mg/dL [facility] Lactate, POC 5.2(C) 0.7 - 2.2 mmol/L [facility] SO2 (aliza) arterial 100(H) 90 - 95 % [facility] Base excess, POC -8.6 mmol/L [facility] H[facility], Art POC 18(L) 20 - 30 mmol/L [facility] Hct, POC 28.0(L) 41.4 - 51.6 % [facility] Total Hb, POC 9.3(L) 13.8 - 17.2 g/dL [facility] Blood 07/25/2024 8:02 AM CDT 07/25/2024 8:02 AM CDT Leonor Quan MD LAB POCT ORDERABLES - D EVICE Final Result Performing Organization Address City/[facility]/ZIP Co de Phone Number [facility] Department [place] [address] * POCT glucose (07/25/2024 6:53 AM CDT) [facility] Glucose, POC 139 70 - 199 mg/dL Blood 07/25/2024 6:53 AM CDT 07/25/2024 6:53 AM CDT Leonor Quan MD LAB POCT ORDERABLES - D EVICE Final Result [facility] Department [facility] [place] [id number] * Critical Care (07/25/2024 6:35 AM CDT) [...] plan with the ICU team and other medical/reporting process consultant staff, making frequent assessments and decisions [...] 6:13 AM CDT 07/25/2024 6:13 AM CDT us Leonor Quan MD LAB POCT ORDERABLES - D EVICE Final Result [facility] Department [place] [address] * (ABNORMAL) Potassium, whole blood (07/25/2024 4:42 AM CDT) Potassium, bld 5.0(H) 3.3 - 4.9 mmol/L Blood 07/25/2024 4:42 AM CDT 07/25/2024 4:56 AM CDT Leonor Quan MD LAB BLOOD ORDERABLES Fi nal Result Performing Organization Address City/[facility] Co de Phone Number [facility] [place] [address] * Oxyhemoglobin, pulmonary artery (07/25/2024 4:42 AM CDT) Oxyhemoglobin, [place] 60.4 % Comment: Interpretive Data No reference range established. Current interpretive data was last revised 2020. Blood 07/25/2024 4:42 AM CDT 07/25/2024 4:56 AM CDT Amber KUHN LAB BLOOD ORDERABLES Fi nal Result Performing Organization Address [facility] Co de Phone Number [facility] [place] [address] * (ABNORMAL) Blood gas, arterial (07/25/2024 4:42 AM CDT) pH, Art 7.26(L) 7.35 - 7.45 PCO2, Arterial 38 35 - 45 mmHg [facility] PO2, Arterial 144(H) 83 - 108 mmHg [facility] HCO3 Art (Calculated) 18(L) 20 - 30 mmol/L [facility] BE, art -9 mmol/L [facility] Comment: Interpretive Data No Reference Range Established Current Interpretive Data was last revised on 2017 O2 Sat Art (Measured) 99(H) 90 - 95 % [facility] Blood 07/25/2024 4:42 AM CDT 07/25/2024 4:56 AM CDT Result [facility] Leonor Quan MD LAB BLOOD ORDERABLES Fi nal Result Performing Organization Address [facility] Co de Phone Number [facility] [place] [address] * POCT glucose (07/25/2024 4:41 AM CDT) Glucose, POC 167 70 - 199 mg/dL Blood 07/25/2024 4:41 AM CDT 07/25/2024 4:41 AM CDT us Leonor Quan MD LAB POCT ORDERABLES - D EVICE Final Result Performing Organization Address City/State/ZIP Co fl Phone Number [facility] Department [place] [address] * eGFR (07/25/2024 4:38 AM CDT) eGFR 70 >=60 mL/min/1. 73 [...] 4:38 AM CDT 07/25/2024 5:11 AM CDT Amber KUHN LAB BLOOD ORDERABLES Fi nal Result Performing Organization Address City/[facility]/ZIP Co de Phone Number [facility] [place] [address] * Phosphorus (07/25/2024 4:38 AM CDT) Pathologist [facility] Phosphorus, pl 4.0 2.3 - 4.5 mg/dL Blood 07/25/2024 4:38 AM CDT 07/25/2024 5:11 AM CDT Leonor Quan MD LAB BLOOD ORDERABLES Fi nal Result Performing Organization Address [facility] Co de Phone Number [facility] [place] [address] * Magnesium (07/25/2024 4:38 AM CDT) [facility] [address] Magnesium 2.3 1.4 - 2.5 mg/dL Blood 07/25/2024 4:38 AM CDT 07/25/2024 5:11 AM CDT Leonor Quan MD LAB BLOOD ORDERABLES Fi nal Result Performing Organization Address [facility] Co de Phone Number [facility] [place] [address] * (ABNORMAL) Basic metabolic panel (07/25/2024 4:38 AM CDT) Pathologist [facility] Sodium 142 135 - 145 mmol/L Potassium, pl 5.4(H) 3.3 - 4.9 mmol/L [facility] Chloride 107 97 - 110 mmol/L [facility] CO2 20(L) 22 - 32 mmol/L [facility] Anion gap 15 2 - 15 mmol/L [facility] BUN 18 6 - 25 mg/dL [facility] Creatinine 1.12 0.80 - 1.30 mg/dL [facility] Glucose 168 70 - 199 mg/dL [facility] Comment: Interpretive Data Fasting glucose >/= [...] 2022. Calcium 8.7 8.5 - 10.3 mg/dL [facility] Blood 07/25/2024 4:38 AM CDT 07/25/2024 5:11 AM CDT us Leonor Quan MD LAB BLOOD ORDERABLES nal Result [facility] [place] [address] * (ABNORMAL) CBC without differential (07/25/2024 4:38 AM CDT) WBC 24.7(H) 3.8 - 9.9 K/cumm Hgb 9.0(L) 13.0 - 17.5 g/dL [facility] Hct 28.6(L) 38.9 - 50.3 % [facility] Plt 150 150 - 400 K/cumm [facility] MPV 10.6 9.1 - 12.3 fL [facility] RBC 3.36(L) 4.30 - 5.80 M/cumm [facility] MCV 85.1 81.3 - 96.4 fL [facility] MCH 26.8(L) 27.1 - 33.3 pg [facility] MCHC 31.5(L) 32.3 - 35.7 g/dL [facility] RDW CV 15.8(H) 11.1 - 14.9 % [facility] RDW SD 48.5(H) 35.7 - 48.1 fL [facility] NRBC abs 0.00 0.00 - 0.01 K/cumm [facility] Blood 07/25/2024 4:38 AM CDT 07/25/2024 5:11 AM CDT Leonor Quan MD LAB BLOOD ORDERABLES Fi nal Result Performing Organization Address City/[facility]/ZIP Co de Phone Number [facility] Department [place] [address] * POCT glucose (07/25/2024 3:18 AM CDT) Pathologist [facility] Glucose, POC 153 70 - 199 mg/dL Blood 07/25/2024 3:18 AM CDT 07/25/2024 3:18 AM CDT Leonor Quan MD LAB POCT ORDERABLES - D EVICE Final Result Performing Organization Address [facility] de Phone Number [facility] Department [place] [employer] [place] [address] * (ABNORMAL) POC Blood Gas and Chemistries, Arterial - (07/25/2024 2:23 AM CDT) pH, Art POC 7.23(L) 7.35 - 7.45 pCO2, Art POC 45 35 - 45 mmHg [facility] pO2, Art POC 100 83 - 108 mmHg [facility] Na, POC 140 135 - 145 mmol/L [facility] K POC 5.0(H) 3.3 - 4.9 mmol/L [facility] Comment: Interpretive Data Not all point of care methods assess for hemolysis. Confirm with instrument and retest K+ if not consistent with clinical signs and symptoms. Current Interpretive Data was last revised on 2024. Cl, POC 110 97 - 110 mmol/L [facility] Ionized Ca, POC 4.86 4.50 - 5.10 mg/dL [facility] Glucose, POC 156 70 - 199 mg/dL [facility] Lactate, POC 5.4(C) 0.7 - 2.2 mmol/L [facility] SO2 (aliza) arterial 100(H) 90 - 95 % [facility] Base excess, POC -8.3 mmol/L [facility] HCO3, Art POC 19(L) 20 - 30 mmol/L [facility] Hct, POC 28.0(L) 41.4 - 51.6 % [facility] Total Hb, POC 9.3(L) 13.8 - 17.2 g/dL [facility] Blood 07/25/2024 2:23 AM CDT 07/25/2024 2:23 AM CDT Leonor Quan MD LAB POCT ORDERABLES - D EVICE Final Result Performing Organization Address City/[facility] Co de Phone Number [facility] Department [place] [address] * POCT glucose (07/25/2024 1:07 AM CDT) Glucose, POC 155 70 - 199 mg/dL Blood 07/25/2024 1:07 AM CDT 07/25/2024 1:07 AM CDT Leonor Quan MD LAB POCT ORDERABLES - D EVICE Final Result Performing Organization Address City/[facility] Co de Phone Number [facility] Department [place] [address] * POCT glucose (07/25/2024 12:13 AM CDT) Glucose, POC 158 70 - 199 mg/dL Blood 07/25/2024 12:1 3 AM CDT 07/25/2024 12:13 AM CDT Leonor Quan MD LAB POCT ORDERABLES - D EVICE Final Result Performing Organization Address [facility] Co de Phone Number [facility] Department [place] [address] * POCT glucose (07/24/2024 10:48 PM CDT) Glucose, POC 175 70 - 199 mg/dL Blood 07/24/2024 10:4 8 PM CDT 07/24/2024 10:48 PM CDT Leonor Quan MD LAB POCT ORDERABLES - D EVICE Final Result Performing Organization Address City/[facility]/ZIP Co de Phone Number [facility] [place] [address] * POCT glucose (07/24/2024 9:54 PM CDT) Glucose, POC 174 70 - 199 mg/dL Blood 07/24/2024 9:54 PM CDT 07/24/2024 9:54 PM CDT Leonor Quan MD LAB POCT ORDERABLES - D EVICE Final Result Performing Organization Address City/[facility] Co de Phone Number [facility] [place] [address] * POCT glucose (07/24/2024 8:59 PM CDT) Glucose, POC 180 70 - 199 mg/dL Blood 07/24/2024 8:59 PM CDT 07/24/2024 8:59 PM CDT Leonor Quan MD LAB POCT ORDERABLES - D EVICE Final Result Performing Organization Address City/[facility]/[place] [address] * Oxyhemoglobin, pulmonary artery (07/24/2024 8:30 PM CDT) Oxyhemoglobin, [place] 60.1 % Comment: Interpretive Data No reference range established. Current interpretive data was last revised 2020. Blood 07/24/2024 8:30 PM CDT 07/24/2024 8:41 PM CDT us Amber KUHN LAB BLOOD ORDERABLES Fi nal Result Performing Organization Address City/[facility] Co de Phone Number [facility] [place] [place] [address] * (ABNORMAL) Lactate (07/24/2024 8:30 PM CDT) Lactate 2.8(H) 0.7 - 2.0 mmol/L Blood 07/24/2024 8:30 PM CDT 07/24/2024 8:47 PM CDT Leonor Quan MD LAB BLOOD ORDERABLES Fi nal Result Performing Organization Address [facility] Co de Phone Number [facility] [place] [place] [address] * (ABNORMAL) POCT glucose (07/24/2024 7:59 PM CDT) Glucose, POC 207(H) 70 - 199 mg/dL Blood 07/24/2024 7:59 PM CDT 07/24/2024 7:59 PM CDT Leonor Quan MD LAB POCT ORDERABLES - D EVICE Final Result Performing Organization Address City/[facility] Co de Phone Number [facility] [place] [address] * (ABNORMAL) POCT glucose (07/24/2024 6:59 PM CDT) Glucose, POC 204(H) 70 - 199 mg/dL Blood 07/24/2024 6:59 PM CDT 07/24/2024 6:59 PM CDT us Leonor Quan MD LAB POCT ORDERABLES - D EVICE Final Result [facility] Department [place] [address] * Critical Care (07/24/2024 6:46 PM CDT) [...] plan with the ICU team and other medical/reporting process consultant staff, making frequent assessments and decisions [...] D EVICE Final Result [facility] Department [place] [address] * XR Chest 1 View - in [...] Oxyhemoglobin, pulmonary artery (07/24/2024 4:24 PM CDT) HATTIE Aguillon 78.0 % Comment: Interpretive Data No reference range established. Current interpretive data was last revised 2020. Blood 07/24/2024 4:24 PM CDT 07/24/2024 4:31 PM CDT Amber KUHN LAB BLOOD ORDERABLES Fi nal Result [facility] [place] [address] * (ABNORMAL) Lipid panel (07/24/2024 4:21 PM [...] on 2018. Triglycerides 100 <=149 mg/dL [facility] Comment: Interpretive Data Ages [...] revised on 2018. HDL 26(L) >=40 mg/dL [facility] Comment: Interpretive Data Ages < or = [...] 2018. LDL, calculated 56 <=129 mg/dL [facility] Comment: Interpretive Data Ages < or = [...] ORDERABLES Fi nal Result [facility] Department [place] [address] * (ABNORMAL) Basic metabolic panel (07/24/2024 4:21 PM CDT) Sodium 141 135 - 145 mmol/L Potassium, pl 4.9 3.3 - 4.9 mmol/L [facility] Chloride 107 97 - 110 mmol/L [facility] CO2 24 22 - 32 mmol/L [facility] Anion gap 10 2 - 15 mmol/L [facility] BUN 12 6 - 25 mg/dL [facility] Creatinine 0.79(L) 0.80 - 1.30 mg/dL [facility] Glucose 142 70 - 199 mg/dL [facility] Comment: Interpretive Data Fasting glucose >/= [...] 2022. Calcium 9.1 8.5 - 10.3 mg/dL [facility] Blood 07/24/2024 4:21 PM CDT 07/24/2024 4:34 PM CDT Leonor Quan MD LAB BLOOD ORDERABLES Fi nal Result Performing Organization Address City/[facility] Co de Phone Number [facility] Department [place] [employer] [place] [address] * Magnesium (07/24/2024 4:21 PM CDT) Pathologist [facility] Magnesium 2.5 1.4 - 2.5 mg/dL Blood 07/24/2024 4:21 PM CDT 07/24/2024 4:34 PM CDT Leonor Quan MD LAB BLOOD ORDERABLES Fi nal Result Performing Organization Address City/[facility]/ZIP Co de Phone Number [facility] Department [place] [address] * eGFR (07/24/2024 4:21 PM CDT) eGFR [...] LAB BLOOD ORDERABLES Fi nal Result [facility] Department of Laboratories [place], [place] [id number] * Phosphorus (07/24/2024 4:21 PM CDT) Phosphorus, pl 4.5 2.3 - 4.5 mg/dL Blood 07/24/2024 4:21 PM CDT 07/24/2024 4:34 PM CDT us Leonor Quan MD LAB BLOOD ORDERABLES Fi nal Result Performing Organization Address City/[facility] Co de Phone Number [facility] Department [place] [address] * Triglycerides (07/24/2024 4:21 PM CDT) Triglycerides [...] CDT 07/24/2024 4:34 PM CDT Narrative [facility] - 07/24/2024 5:01 PM CDT While on propofol infusion. us Amber KUHN LAB BLOOD ORDERABLES Fi nal Result Performing Organization Address [facility] Co de Phone Number [facility] Department [place] [address] * aPTT (07/24/2024 4:21 PM CDT) Pathologist [facility] aPTT 34 28 - 38 sec Comment: Interpretive Data Heparin therapeutic range: 66.0 - 100.0 seconds. Range based on correlation with therapeutic heparin activity range of 0.3 - 0.7 Units/mL. Current interpretive data was last revised on 2023. Blood 07/24/2024 4:21 PM CDT 07/24/2024 4:37 PM CDT Amber KUHN LAB BLOOD ORDERABLES Fi nal Result Performing Organization Address [facility] de Phone Number [facility] [place] [address] * (ABNORMAL) Protime-INR (07/24/2024 4:21 PM CDT) [facility] [address] PT 15.7(H) 9.7 - 13.0 sec INR 1.44(H) 0.90 - 1.20 [facility] Comment: Interpretive data Oral anticoagulant therapeutic ranges: Venous thromboembolism prophylaxis or treatment: 2.0-3.0 CARDIOLOGY Standard range: 2.0-3.0 High-intensity range: 2.5-3.5 Refer to indication-specific guidelines for appropriate target ranges for prosthetic heart valve replacement. Current interpretive data was last revised on 2019. Blood 07/24/2024 4:21 PM CDT 07/24/2024 4:37 PM CDT Amber KUHN LAB BLOOD ORDERABLES Fi nal Result Performing Organization Address City/[facility] Co de Phone Number [facility] [place] [address] * (ABNORMAL) CBC without differential (07/24/2024 4:21 PM CDT) Pathologist [facility] WBC 6.1 3.8 - 9.9 K/cumm Hgb 9.1(L) 13.0 - 17.5 g/dL [facility] Hct 27.8(L) 38.9 - 50.3 % [facility] Plt 79(L) 150 - 400 K/cumm [facility] MPV 10.1 9.1 - 12.3 fL [facility] RBC 3.34(L) 4.30 - 5.80 M/cumm [facility] MCV 83.2 81.3 - 96.4 fL [facility] MCH 27.2 27.1 - 33.3 pg [facility] MCHC 32.7 32.3 - 35.7 g/dL [facility] RDW CV 15.5(H) 11.1 - 14.9 % [facility] RDW SD 47.1 35.7 - 48.1 fL [facility] NRBC abs 0.00 0.00 - 0.01 K/cumm [facility] Blood 07/24/2024 4:21 PM CDT 07/24/2024 4:35 PM CDT Amber KUHN LAB BLOOD ORDERABLES nal Result [facility] Department [place] [address] * (ABNORMAL) POC Blood Gas and Chemistries, Arterial - (07/24/2024 4:14 PM CDT) pH, Art POC 7.35 7.35 - 7.45 pCO2, Art POC 41 35 - 45 mmHg [facility] pO2, Art POC 224(H) 83 - 108 mmHg [facility] Na, POC 140 135 - 145 mmol/L [facility] K POC 4.8 3.3 - 4.9 mmol/L [facility] Comment: Interpretive Data Not all point of care methods assess for hemolysis. Confirm with instrument and retest K+ if not consistent with clinical signs and symptoms. Current Interpretive Data was last revised on 2024. Cl, POC 112(H) 97 - 110 mmol/L [facility] Ionized Ca, POC 4.95 4.50 - 5.10 mg/dL [facility] Glucose, POC 139 70 - 199 mg/dL [facility] Lactate, POC 2.3(H) 0.7 - 2.2 mmol/L [facility] SO2 (aliza) arterial 100(H) 90 - 95 % [facility] Base excess, POC -2.8 mmol/L [facility] HCO3, Art POC 23 20 - 30 mmol/L [facility] Hct, POC 29.0(L) 41.4 - 51.6 % [facility] Total Hb, POC 9.5(L) 13.8 - 17.2 g/dL [facility] Blood 07/24/2024 4:14 PM CDT 07/24/2024 4:14 PM CDT us Leonor Quan MD LAB POCT ORDERABLES - D EVICE Final Result [facility] Department [place] [address] * Critical Care (07/24/2024 3:22 PM CDT) [...] plan with the ICU team and other medical/reporting process consultant staff, making frequent assessments and decisions [...] Panel - Heparin (07/24/2024 3:21 PM CDT) HEPTEM-CT, POC 237(H) 141 - 215 sec HEPTEM-A5, POC 30(L) 33 - 51 mm [facility] HEPTEM-A10, POC 40(L) 44 - 61 mm [facility] HEPTEM-A20, POC 47(L) 52 - 67 mm [facility] HEPTEM-MCF, POC 49(L) 54 - 69 mm [facility] HEPTEM-Run Time, POC (hh:mm:ss) 02:00:00 [facility] Blood 07/24/2024 3:21 PM CDT 07/24/2024 3:21 PM CDT us Leonor Quan MD LAB POCT ORDERABLES - D JULIETTE Edited Result - Final [facility] Department [place] [address] * (ABNORMAL) POC Thromboelastometry Panel - Intrinsic (07/24/2024 3:20 PM CDT) INTEM-CT, POC 245(H) 139 - 205 sec INTEM-A5, POC 33(L) 36 - 54 mm [facility] INTEM-A10, POC 43(L) 46 - 63 mm [facility] INTEM-A20, POC 50(L) 53 - 68 mm [facility] INTEM-MCF, POC 51(L) 55 - 70 mm [facility] INTEM-LI60, POC 98 93 - 100 % [facility] INTEM-ML, POC 6 0 - 7 % [facility] INTEM-Run Time, POC (hh:mm:ss) 02:00:00 [facility] Blood 07/24/2024 3:20 PM CDT 07/24/2024 3:20 PM CDT Leonor Quan MD LAB POCT ORDERABLES - D EVICE Edited Result - Final Performing Organization Address City/[facility]/ZIP Co de Phone Number [facility] Department [place] [address] * (ABNORMAL) POC Thromboelastometry Panel - Extrinsic [...] [facility] EXTEM-Run Time, POC (hh:mm:ss) 02:00:00 [facility] Blood 07/24/2024 3:19 PM CDT 07/24/2024 3:19 PM CDT us Leonor Quan MD LAB POCT ORDERABLES - D EVICE Edited Result - Final [facility] [place] [address] * POC Thromboelastometry Panel - Fibrinogen (07/24/2024 3:19 PM CDT) FIBTEM-A5, POC 10 5 - 16 mm FIBTEM-A10, POC 11 6 - 17 mm [facility] FIBTEM-A20, POC 12 6 - 18 mm [facility] FIBTEM-MCF, POC 13 9 - 19 mm [facility] FIBTEM-Run Time, POC (hh:mm:ss) 02:00:00 [facility] Blood 07/24/2024 3:19 PM CDT 07/24/2024 3:19 PM CDT us Leonor Quan MD LAB POCT ORDERABLES - D DEANICE Edited Result - Final Performing Organization Address [facility] Co de Phone Number [facility] [place] [place] [address] * Transfuse platelets (07/24/2024 2:41 PM CDT) Blood Cristina Phipps MD BLOOD TRANSFUSION ORDERAB LES Final Result Performing Organization Address [facility]/ZIP Co de Phone Number [facility] Department [place] [address] * Transfuse plasma (07/24/2024 2:40 PM CDT) Blood Cristina Phipps MD BLOOD TRANSFUSION ORDERAB LES Final Result Performing Organization Address [facility] de Phone Number [facility] [place] [address] * Prepare platelets: 1 Units (07/24/2024 2:24 PM CDT) Product code [id number] Unit Number [id number] [facility] Product Blood Type OPOS [facility] Dispense Status PRESUMED TRANSFUSED [facility] Blood (Blood, Venous) 07/24/2024 2:24 PM CDT 07/24/2024 2:24 PM CDT Narrative [facility] - 07/25/2024 12:49 AM CDT Are special requirements needed? (all products are leukoreduced)->No Date required:-[id number] PLT # of Units:-1-Units Reasons:-Major active bleeding} Result [facility] Cristina Phipps MD BLOOD BANK PRODUCT ORDERA BLES Final Result Performing Organization Address [facility] Co de Phone Number [facility] [place] [address] * POCT Partial thromboplastin time (PTT) (07/24/2024 2:17 PM CDT) Pathologist [facility] APTT, POC 34.7 32.5 - 46.1 sec Blood 07/24/2024 2:17 PM CDT 07/24/2024 2:17 PM CDT Result [facility] Leonor Quan MD LAB POCT ORDERABLES - D EVICE Final Result Performing Organization Address [facility] Co de Phone Number [facility] [place] [address] * (ABNORMAL) POCT prothrombin time (07/24/2024 2:17 PM CDT) Pathologist [facility] PT, POC 34.3(H) 11.7 - 16.6 sec INR, POC 2.6(H) 0.9 - 1.3 [facility] Blood 07/24/2024 2:17 PM CDT 07/24/2024 2:17 PM CDT Result [facility] Leonor Quan MD LAB POCT ORDERABLES - D EVICE Final Result Performing Organization Address [facility] [place] [address] * (ABNORMAL) POCT hemoglobin, hematocrit and platelet count (07/24/2024 2:15 PM CDT) Hgb, POC 8.4(L) 13.0 - 17.5 g/dL Hematocrit POC 25.4(L) 38.9 - 50.3 % [facility] Platelet POC 55(L) 150 - 400 K/cumm [facility] Blood 07/24/2024 2:15 PM CDT 07/24/2024 2:15 PM CDT Leonor Quan MD LAB POCT ORDERABLES - D EVICE Final Result Performing Organization Address City/[facility]/ZIP Co de Phone Number [facility] [facility] [place] [address] * POCT heparin/ACT CPB (07/24/2024 2:14 PM CDT) [facility] [address] Heparin POC 0.0 units/mL ACT, CPB 136 112 - 174 sec [facility] Blood 07/24/2024 2:14 PM CDT 07/24/2024 2:14 PM CDT Leonor Quan MD LAB POCT ORDERABLES - D EVICE Final Result Performing Organization Address City/[facility] de Phone Number [facility] [place] [address] * (ABNORMAL) POC Blood Gas and Chemistries, Arterial - (07/24/2024 2:14 PM CDT) [facility] [address] pH, Art POC 7.35 7.35 - 7.45 pCO2, Art POC 41 35 - 45 mmHg [facility] pO2, Art POC 92 83 - 108 mmHg [facility] Na, POC 140 135 - 145 mmol/L [facility] K POC 4.7 3.3 - 4.9 mmol/L [facility] Comment: Interpretive Data Not all point of care methods assess for hemolysis. Confirm with instrument and retest K+ if not consistent with clinical signs and symptoms. Current Interpretive Data was last revised on 2024. Cl, POC 112(H) 97 - 110 mmol/L [facility] Ionized Ca, POC 5.94(H) 4.50 - 5.10 mg/dL [facility] Glucose, POC Incalculable 70 - 199 mg/dL [facility] Lactate, POC 2.7(H) 0.7 - 2.2 mmol/L [facility] SO2 (aliza) arterial 99(H) 90 - 95 % [facility] Base excess, POC -2.8 mmol/L [facility] HCO3, Art POC 23 20 - 30 mmol/L [facility] Hct, POC 26.0(L) 41.4 - 51.6 % [facility] Total Hb, POC 8.8(L) 13.8 - 17.2 g/dL [facility] Blood 07/24/2024 2:14 PM CDT 07/24/2024 2:14 PM CDT Leonor Quan MD LAB POCT ORDERABLES - D EVICE Final Result Performing Organization Address City/[facility]/ZIP Co de Phone Number [facility] Department [place] [address] * POCT glucose (07/24/2024 2:13 PM CDT) Glucose, POC 113 70 - 199 mg/dL Blood 07/24/2024 2:13 PM CDT 07/24/2024 2:13 PM CDT Leonor Quan MD LAB POCT ORDERABLES - D EVICE Final Result [facility] [place] [address] * (ABNORMAL) POCT heparin/ACT CPB (07/24/2024 1:47 PM CDT) Heparin POC <2.8 units/mL ACT, CPB 456(H) 112 - 174 sec [facility] Blood 07/24/2024 1:47 PM CDT 07/24/2024 1:47 PM CDT Leonor Quan MD LAB POCT ORDERABLES - D EVICE Final Result Performing Organization Address City/[facility]/ZIP Co de Phone Number [facility] [place] [address] * (ABNORMAL) POCT heparin/ACT CPB (07/24/2024 1:19 PM CDT) Pathologist [facility] Heparin POC <2.8 units/mL ACT, CPB 518(H) 112 - 174 sec [facility] Blood 07/24/2024 1:19 PM CDT 07/24/2024 1:19 PM CDT Leonor Quan MD LAB POCT ORDERABLES - D EVICE Final Result Performing Organization Address [facility] Co de Phone Number [facility] [place] [address] * (ABNORMAL) POC Blood Gas and Chemistries, Arterial - (07/24/2024 1:18 PM CDT) Pathologist [facility] pH, Art POC 7.39 7.35 - 7.45 pCO2, Art POC 39 35 - 45 mmHg [facility] pO2, Art POC 278(H) 83 - 108 mmHg [facility] Na, POC 141 135 - 145 mmol/L [facility] K POC 5.1(H) 3.3 - 4.9 mmol/L [facility] Comment: Interpretive Data Not all point of care methods assess for hemolysis. Confirm with instrument and retest K+ if not consistent with clinical signs and symptoms. Current Interpretive Data was last revised on 2024. Cl, POC 111(H) 97 - 110 mmol/L [facility] Ionized Ca, POC 4.66 4.50 - 5.10 mg/dL [facility] Glucose, POC Incalculable 70 - 199 mg/dL [facility] Lactate, POC 1.7 0.7 - 2.2 mmol/L [facility] SO2 (aliza) arterial 99(H) 90 - 95 % [facility] Base excess, POC -1.2 mmol/L [facility] HCO3, Art POC 24 20 - 30 mmol/L [facility] Hct, POC 26.0(L) 41.4 - 51.6 % [facility] Total Hb, POC 8.6(L) 13.8 - 17.2 g/dL [facility] Blood 07/24/2024 1:18 PM CDT 07/24/2024 1:18 PM CDT Leonor Quan MD LAB POCT ORDERABLES - D EVICE Final Result Performing Organization Address City/[facility] Co de Phone Number [facility] [place] [address] * POCT glucose (07/24/2024 12:54 PM CDT) Glucose, POC 87 70 - 199 mg/dL Blood 07/24/2024 12:5 4 PM CDT 07/24/2024 12:54 PM CDT Leonor Quan MD LAB POCT ORDERABLES - D EVICE Final Result Performing Organization Address [facility] de Phone Number [facility] Department [place] [place] [address] * (ABNORMAL) POCT heparin/ACT CPB (07/24/2024 12:53 PM CDT) Heparin POC 3.4 units/mL ACT, CPB 553(H) 112 - 174 sec [facility] Blood 07/24/2024 12:5 3 PM CDT 07/24/2024 12:53 PM CDT Leonor Quan MD LAB POCT ORDERABLES - D EVICE Final Result Performing Organization Address City/[facility] Co de Phone Number [facility] [place] [address] * (ABNORMAL) POC Blood Gas and Chemistries, Arterial - (07/24/2024 12:52 PM CDT) pH, Art POC 7.40 7.35 - 7.45 pCO2, Art POC 39 35 - 45 mmHg [facility] pO2, Art POC 312(H) 83 - 108 mmHg [facility] Na, POC 140 135 - 145 mmol/L [facility] K POC 4.9 3.3 - 4.9 mmol/L [facility] Comment: Interpretive Data Not all point of care methods assess for hemolysis. Confirm with instrument and retest K+ if not consistent with clinical signs and symptoms. Current Interpretive Data was last revised on 2024. Cl, POC 112(H) 97 - 110 mmol/L [facility] Ionized Ca, POC 4.47(L) 4.50 - 5.10 mg/dL [facility] Glucose, POC Incalculable 70 - 199 mg/dL [facility] Lactate, POC 1.5 0.7 - 2.2 mmol/L [facility] SO2 (aliza) arterial 99(H) 90 - 95 % [facility] Base excess, POC -0.5 mmol/L [facility] HCO3, Art POC 24 20 - 30 mmol/L [facility] Hct, POC 25.0(L) 41.4 - 51.6 % [facility] Total Hb, POC 8.3(L) 13.8 - 17.2 g/dL [facility] Blood 07/24/2024 12:5 2 PM CDT 07/24/2024 12:52 PM CDT us Leonor Quan MD LAB POCT ORDERABLES - D EVICE Final Result [facility] of [facility] [place], [place] [id number] * Prepare plasma: 2 Units (07/24/2024 12:45 PM CDT) Product code [id number] Unit Number [id number] [facility] Product Blood Type BPOS [facility] Dispense Status PRESUMED TRANSFUSED [facility] Blood (Blood, Venous) 07/24/2024 12:45 PM CDT 07/24/2024 12:45 PM CDT Narrative [facility] - 07/25/2024 12:49 AM CDT Date required:-[id number] FFP # of Units:-2-Units Reasons:-Active major bleeding with coagulopathy} Cristina Phipps MD BLOOD BANK PRODUCT ORDERA BLES Final Result Performing Organization Address [facility] Co de Phone Number [facility] Department [place] [address] * Transfuse RBC (07/24/2024 12:33 PM CDT) Blood Cristina Phipps MD BLOOD TRANSFUSION ORDERAB LES Final Result Performing Organization Address [facility] de Phone Number [facility] [place] [address] * (ABNORMAL) POC Blood Gas and Chemistries, Arterial - (07/24/2024 12:15 PM CDT) pH, Art POC 7.41 7.35 - 7.45 pCO2, Art POC 39 35 - 45 mmHg [facility] pO2, Art POC 314(H) 83 - 108 mmHg [facility] Na, POC 141 135 - 145 mmol/L [facility] K POC 4.5 3.3 - 4.9 mmol/L [facility] Comment: Interpretive Data Not all point of care methods assess for hemolysis. Confirm with instrument and retest K+ if not consistent with clinical signs and symptoms. Current Interpretive Data was last revised on 2024. Cl, POC 112(H) 97 - 110 mmol/L [facility] Ionized Ca, POC 4.43(L) 4.50 - 5.10 mg/dL [facility] Glucose, POC Incalculable 70 - 199 mg/dL [facility] Lactate, POC 1.2 0.7 - 2.2 mmol/L [facility] SO2 (aliza) arterial 99(H) 90 - 95 % [facility] Base excess, POC 0.1 mmol/L [facility] HCO3, Art POC 25 20 - 30 mmol/L [facility] Hct, POC 24.0(L) 41.4 - 51.6 % [facility] Total Hb, POC 7.9(L) 13.8 - 17.2 g/dL [facility] Blood 07/24/2024 12:1 5 PM CDT 07/24/2024 12:15 PM CDT Leonor Quan MD LAB POCT ORDERABLES - D EVICE Final Result Performing Organization Address [facility] de Phone Number [facility] [place] [address] * (ABNORMAL) POCT heparin/ACT CPB (07/24/2024 12:14 PM CDT) Heparin POC 4.1 units/mL ACT, CPB 678(H) 112 - 174 sec [facility] Blood 07/24/2024 12:1 4 PM CDT 07/24/2024 12:14 PM CDT Leonor Quan MD LAB POCT ORDERABLES - D EVICE Final Result Performing Organization Address [facility] de Phone Number [facility] [place] [address] * (ABNORMAL) POCT heparin/ACT CPB (07/24/2024 11:42 AM CDT) Heparin POC 3.4 units/mL ACT, CPB 758(H) 112 - 174 sec [facility] Blood 07/24/2024 11:4 2 AM CDT 07/24/2024 11:42 AM CDT Leonor Quan MD LAB POCT ORDERABLES - D EVICE Final Result Performing Organization Address City/[facility] Co de Phone Number [facility] [place] [address] * (ABNORMAL) POC Blood Gas and Chemistries, Arterial - (07/24/2024 11:41 AM CDT) pH, Art POC 7.38 7.35 - 7.45 pCO2, Art POC 35 35 - 45 mmHg [facility] pO2, Art POC 454(H) 83 - 108 mmHg [facility] Na, POC 140 135 - 145 mmol/L [facility] K POC 4.6 3.3 - 4.9 mmol/L [facility] Comment: Interpretive Data Not all point of care methods assess for hemolysis. Confirm with instrument and retest K+ if not consistent with clinical signs and symptoms. Current Interpretive Data was last revised on 2024. Cl, POC 110 97 - 110 mmol/L [facility] Ionized Ca, POC 4.32(L) 4.50 - 5.10 mg/dL [facility] Glucose, POC Incalculable 70 - 199 mg/dL [facility] Lactate, POC 1.1 0.7 - 2.2 mmol/L [facility] SO2 (aliza) arterial 100(H) 90 - 95 % [facility] Base excess, POC -4.0 mmol/L [facility] HCO3, Art POC 21 20 - 30 mmol/L [facility] Hct, POC 26.0(L) 41.4 - 51.6 % [facility] Total Hb, POC 8.8(L) 13.8 - 17.2 g/dL [facility] Blood 07/24/2024 11:4 1 AM CDT 07/24/2024 11:41 AM CDT us Leonor Quan MD LAB POCT ORDERABLES - D JULIETTE Final Result [facility] [place] [address] * (ABNORMAL) POC Blood Gas and Chemistries, Arterial - (07/24/2024 10:59 AM CDT) pH, Art POC 7.32(L) 7.35 - 7.45 pCO2, Art POC 46(H) 35 - 45 mmHg [facility] pO2, Art POC 189(H) 83 - 108 mmHg [facility] Na, POC 141 135 - 145 mmol/L [facility] K POC 4.3 3.3 - 4.9 mmol/L [facility] Comment: Interpretive Data Not all point of care methods assess for hemolysis. Confirm with instrument and retest K+ if not consistent with clinical signs and symptoms. Current Interpretive Data was last revised on 2024. Cl, POC 111(H) 97 - 110 mmol/L [facility] Ionized Ca, POC 5.79(H) 4.50 - 5.10 mg/dL [facility] Glucose, POC Incalculable 70 - 199 mg/dL [facility] Lactate, POC 1.2 0.7 - 2.2 mmol/L [facility] SO2 (aliza) arterial 100(H) 90 - 95 % [facility] Base excess, POC -2.5 mmol/L [facility] HCO3, Art POC 24 20 - 30 mmol/L [facility] Hct, POC 34.0(L) 41.4 - 51.6 % [facility] Total Hb, POC 11.3(L) 13.8 - 17.2 g/dL [facility] Blood 07/24/2024 10:5 9 AM CDT 07/24/2024 10:59 AM CDT us Leonor Quan MD LAB POCT ORDERABLES - D JULIETTE Final Result [facility] Department [place] [address] * (ABNORMAL) POCT heparin/ACT CPB (07/24/2024 10:57 AM CDT) Heparin POC >4.7 units/mL ACT, CPB 773(H) 112 - 174 sec [facility] Blood 07/24/2024 10:5 7 AM CDT 07/24/2024 10:57 AM CDT Leonor Quan MD LAB POCT ORDERABLES - D EVICE Final Result Performing Organization Address City/[facility]/ZIP Co de Phone Number [facility] Department [place] [address] * POCT glucose (07/24/2024 10:11 AM CDT) Pathologist [facility] Glucose, POC 73 70 - 199 mg/dL Blood 07/24/2024 10:1 1 AM CDT 07/24/2024 10:11 AM CDT Leonor Quan MD LAB POCT ORDERABLES - D EVICE Final Result Performing Organization Address [facility] de Phone Number [facility] Department [place] [address] * (ABNORMAL) POC Blood Gas and Chemistries, Arterial - (07/24/2024 9:30 AM CDT) [facility] [address] pH, Art POC 7.42 7.35 - 7.45 pCO2, Art POC 37 35 - 45 mmHg [facility] pO2, Art POC 112(H) 83 - 108 mmHg [facility] Na, POC 141 135 - 145 mmol/L [facility] K POC 3.9 3.3 - 4.9 mmol/L [facility] Comment: Interpretive Data Not all point of care methods assess for hemolysis. Confirm with instrument and retest K+ if not consistent with clinical signs and symptoms. Current Interpretive Data was last revised on 2024. Cl, POC 110 97 - 110 mmol/L [facility] Ionized Ca, POC 4.96 4.50 - 5.10 mg/dL [facility] Glucose, POC Incalculable 70 - 199 mg/dL [facility] Lactate, POC 1.6 0.7 - 2.2 mmol/L [facility] SO2 (aliza) arterial 100(H) 90 - 95 % [facility] Base excess, POC -0.3 mmol/L [facility] HCO3, Art POC 24 20 - 30 mmol/L [facility] Hct, POC 33.0(L) 41.4 - 51.6 % [facility] Total Hb, POC 11.0(L) 13.8 - 17.2 g/dL [facility] Blood 07/24/2024 9:30 AM CDT 07/24/2024 9:30 AM CDT us Leonor Quan MD LAB POCT ORDERABLES - D EVICE Final Result Performing Organization Address [facility] de Phone Number [facility] Department [place] [address] * POCT heparin dose response, CPB (07/24/2024 9:19 AM CDT) Baseline ACT POC 146 112 - 174 sec Heparin dose response slope POC 107 60 - 195 [facility] Projected Heparin Concentration POC 3.1 units/mL [facility] Blood 07/24/2024 9:19 AM CDT 07/24/2024 9:19 AM CDT Leonor Quan MD LAB POCT ORDERABLES - D EVICE Final Result Performing Organization Address [facility] de Phone Number [facility] [place] [address] * EMILE Add-On For OR (07/24/2024 8:01 AM CDT) Narrative [facility] PROSOLV_CARDIOREPORT_CONS SCIMAGE - 07/24/2024 8:01 AM CDT Procedure Auto Finalized by Rule: MATEO CV EMILE DURING CASE OR Please see the Anesthesiologist's Procedure Note for the results. us Cristina Phipps MD CV ECHO PROCEDURES Final Result Performing Organization Address [facility] Co de Phone Number [email or web address]_CONS SCIMAGE * POCT glucose (07/24/2024 6:46 AM CDT) Glucose, POC 78 70 - 199 mg/dL Blood 07/24/2024 6:46 AM CDT 07/24/2024 6:46 AM CDT us Leonor Quan MD LAB POCT ORDERABLES - D EVICE Final Result Performing Organization Address [facility]/ZIP Co de Phone Number [facility] Department [place] [address] * Check Sample (07/24/2024 6:45 AM CDT) ABO Rh O Positive [facility] HCLL OTHER 07/24/2024 6:45 AM CDT 07/24/2024 7:17 AM CDT us Leonor Quan MD LAB BLOOD ORDERABLES Fi nal Result Performing Organization Address [facility] de Phone Number [facility] Department [place] [address] [facility] * Prepare RBC: 4 Units (07/24/2024 6:36 AM CDT) Product code [id number] [facility] Unit Number [id number] [facility] Product Blood Type OPOS [facility] Dispense Status PRESUMED TRANSFUSED [facility] Product code [id number] [facility] Unit Number [id number] [facility] Product Blood Type OPOS [facility] Dispense Status RETURNED [facility] Product code [id number] Unit Number [id number] [facility] Product Blood Type OPOS [facility] Dispense Status RETURNED [facility] Product code [id number] [facility] Unit Number [id number] [facility] Product Blood Type OPOS [facility] Dispense Status RETURNED [facility] Blood 07/24/2024 6:36 AM CDT 07/24/2024 6:35 AM CDT Piyush FRENCH [facility] - 07/25/2024 12:49 AM CDT Specify Procedure:->CABG Are special requirements needed? (All products are leukoreduced and CMV- safe)- >No Date required:-20240724 [facility] [id number] Reasons:-Hold for procedure (specify procedure)} Shantal Sánchez NP BLOOD BANK PRODUCT ORDE DAVID Final Result [facility] Department [place] [address] documented in this encounter Visit Diagnoses Diagnosis S/P CABG (coronary artery bypass graft)- Primary Postsurgical aortocoronary bypass status Preoperative testing Unspecified pre-operative examination Bruising Contusion of unspecified site Coronary artery disease, unspecified vessel or lesion type, unspecified whether angina present, unspecified whether belkofski or transplanted heart CAD, 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] Other mechanical complication of infusion catheter, initial encounter (HCC) Bradycardia Other specified cardiac dysrhythmias Complete heart block (CMS/HCC) (HCC) Atrioventricular block, complete Junctional escape rhythm Coronary artery disease due to calcified coronary lesion Bradycardia Other specified cardiac dysrhythmias Complete heart block (CMS/HCC) (HCC) Atrioventricular block, complete Junctional escape rhythm Bradycardia Other specified cardiac dysrhythmias Complete heart block (CMS/HCC) (HCC) Atrioventricular block, complete Junctional escape rhythm documented in this encounter Admitting Diagnoses Diagnosis CAD, multiple vessel Coronary arteriosclerosis Coronary atherosclerosis of unspecified type of vessel, belkofski or graft Coronary artery disease due to [...] Given 08/08/2024 7:52 AM CDT 650 mg aspirin chewable tablet 81 mg 81 mg, oral, Daily, First dose (after last modification) on Wed07/26/24 at 0900 Given 08/11/2024 9:23 AM CDT 81 mg Given 08/10/2024 10:23 AM CDT 81 mg Given 08/09/2024 10:04 AM CDT 81 mg atorvastatin (LIPITOR) tablet 80 mg 80 mg, oral, Daily, First dose (after last modification) on Wed08/09/24 at 0900 Given 08/11/2024 9:23 AM CDT 80 mg Given 08/10/2024 10:23 AM CDT 80 mg Given 08/09/2024 10:05 AM CDT 80 mg carvediloL (COREG) tablet 3.125 mg 3.125 mg, oral, 2 times daily with meals (bkfst, dinner), First dose on Wed08/06/24 at 1800 Given 08/11/2024 9:23 AM CDT 3.125 mg Given 08/10/2024 5:24 PM CDT 3.125 mg Given 08/10/2024 10:23 AM CDT 3.125 mg clopidogreL (PLAVIX) tablet 75 mg 75 [...] for each episode of hypoglycemia., Indications: hypoglycemic disorderIndications:hypoglycemic disorder dextrose gel in packet 15 g 15 [...] for each episode of hypoglycemia., Indications: hypoglycemic disorderIndications:hypoglycemic disorder DULoxetine DR (CYMBALTA) extended release capsule 60 mg 60 mg, oral, Nightly, First dose on Wed07/25/24 at 2100, Capsule may be opened and contents mixed with applesauce or apple juice ONLY. Do not crush or chew capsule Given 08/10/2024 8:08 PM CDT 60 mg Given 08/09/2024 9:13 PM CDT 60 mg Given 08/08/2024 9:14 PM CDT 60 mg glucagon injection 1 mg 1 mg, [...] 1 mL SWFI. Use immediately following reconstitution. insulin lispro (HumaLOG, ADMELOG) 100 unit/mL injection [...] for NPO Status, Indications: Diabetes MellitusIndications:Diabetes Mellitus ioversoL (OPTIRAY 320) injection Code/trauma/sedation medication, Starting on Wed08/04/24 at 0816, Intra-Procedure (CV) Given 08/04/2024 8:16 AM CDT 10 mL Left Hand ioversoL (OPTIRAY 320) injection Code/trauma/sedation medication, Starting on Wed08/04/24 at 0913, Intra-Procedure (CV) Given 08/04/2024 9:14 AM CDT 6 mL Other (Comment) Given 08/04/2024 9:13 AM CDT 6 mL Ot her (Comment) isosorbide mononitrate ER (IMDUR) extended release tablet 15 mg 15 mg, oral, Daily, First dose on Wed07/27/24 at 0945, Tablets that are scored may be split, but do not crush, chew, dissolve, open or otherwise manipulate tablet/capsule. Given 08/11/2024 9:23 AM CDT 15 m g Given 08/10/2024 10:22 AM CDT 15 mg Given 08/09/2024 10:05 AM CDT 15 mg lidocaine (XYLOCAINE) 10 mg/mL (1 %) injection Code/trauma/sedation medication, Starting on Wed08/04/24 at 0835, Intra-Procedure (CV), Indications: Administration of Local AnesthesiaIndications:Administration of Local Anesthesia Given 08/04/2024 8:42 AM CDT 8 mL Left Chest Given 08/04/2024 8:35 AM CDT 10 mL Le ft Chest magnesium oxide (MAG-OX) tablet 800 mg 800 mg, oral, 2 times daily, First dose on Wed08/08/24 at 2100, 1 tablet = Magnesium oxide 400 mg = 241.3 mg elemental magnesium, Indications: hypomagnesemiaIndications:hypomagnesemia Given 08/11/2024 9:23 AM CDT 800 mg Given 08/10/2024 8:08 PM CDT 800 mg Given 08/10/2024 10:23 AM CDT 800 mg ondansetron (ZOFRAN) injection 4 mg 4 mg, intravenous, Administer over 2 Minutes, Every 6 hours PRN, nausea, vomiting, Starting on Wed07/24/24 at 1610, Administer no sooner than 6 hours after last dose. pantoprazole DR (PROTONIX) extended release tablet 40 mg 40 mg, oral, Daily, First dose on Wed07/25/24 at 0900, Do not crush, chew, cut, dissolve, open or otherwise manipulate tablet/capsule., Indications: Treatment of Non-Bleeding Gastric DisorderIndications:Treatment of Non-Bleeding Gastric Disorder Given 08/11/2024 9:23 AM CDT 40 mg Given 08/10/2024 10:23 AM CDT 40 mg Given 08/09/2024 10:05 AM CDT 40 mg pregabalin (LYRICA) capsule 100 mg 100 mg, oral, 2 times daily, First dose (after last modification) on Wed08/11/24 at 2100 vancomycin (VANCOCIN) 1,000 mg in sodium chloride 0.9% 1,000 mL irrigation solution Code/trauma/sedation medication, Starting on Wed08/04/24 at 1015, Intra-Procedure (CV) Given 08/04/2024 10:15 AM CDT 800 mL Surgical Site documented in this encounter Discontinued Medications [...] with meals (bkfst, dinner), First dose on Ann-Marie 08/17/24 at 1800 clopidogreL (PLAVIX) tablet 75 mg 75 mg, oral, Daily, First dose (after last modification) on Wed07/26/24 at 0900 1005 (Given - Provider: Arabella Mancini RN) 1023 (Given - Provider: Nedra Ray RN) 0923 (Given - Provider: Nedra Ray RN) DULoxetine DR (ANETAMBALTA) extended release capsule 60 mg 60 mg, oral, Nightly, First dose on Wed07/25/24 at 2100, Capsule may be opened and contents mixed with applesauce or apple juice ONLY. Do not crush or chew capsule 2112 (Given - Provider: Regino Soria, RN) 2007 (Given - Provider: Leanna Krueger, NAVIN) insulin glargine (LANTUS, SEMGLEE) 100 unit/mL injection 35 Units (CANCELED) 35 Units, subcutaneous, Every morning, First dose (after last modification) on Wed08/06/24 at 0900, Do not mix with other insulins 1006 (Given - Provider: Arabella Mancini, NAVIN) 1024 (Not Given - Provider: Nerda Ray RN - Reason: See Provider Order) [...] Bianka Gallagher NP)1005 (Given - Provider: Arabella Mancini RN) 102 (Given - Provider: Nedra Ray RN) 0923 (Given - Provider: Nedra Ray RN) magnesium oxide (MAG-OX) tablet 800 mg 800 mg, oral, 2 times daily, First dose on Wed08/08/24 at 2100, 1 tablet = Magnesium oxide 400 mg = 241.3 mg elemental magnesium, Indications: hypomagnesemia 1005 (Given - Provider: Arabella Mancini RN)2112 (Given - Provider: Regino Soria RN) 102 (Given - Provider: Nedra Ray RN)2007 (Given [...] Non-Bleeding Gastric Disorder 1005 (Given - Provider: Arabella Mancini RN) 102 (Given - Provider: Nedra Ray RN) 0923 [...] or chewed. 1005 (Given - Provider: Arabella Mancini RN) 1023 (Given - Provider: Nedra Ray RN) pregabalin (LYRICA) capsule 100 mg 100 mg, oral, 2 times daily, First dose (after last modification) on Wed08/11/24 at 2100 pregabalin (LYRICA) capsule 50 mg (CANCELED) 50 mg, oral, 2 times daily, First dose on Wed08/10/24 at 2100 2007 (Given - Provider: Leanna Krueger RN) 09 (Given - Provider: Nedra Ray RN) QUEtiapine (SEROquel) tablet 50 mg (CANCELED) 50 mg, oral, Nightly, First dose (after last modification) on Wed08/07/24 at 2100 211 (Given - Provider: Regino Soria RN) PRN Medication Order 08/09/2024 08/10/2024 08/11/2024 acetaminophen (TYLENOL) tablet 650 mg 650 mg, oral, Every 6 hours PRN, fever, Starting on Wed08/08/24 at 0600, Indications: Pain 1005 (Return to Cabinet - Provider: Arabella Mancini RN) 0438 (Given - Provider: Leanna Krueger RN) dextrose (D10W) 10% bolus 250 mL(Linked Group [...] Ordered Date carvediloL (COREG) tablet 3.125 mg 2 202308/06/2024 pregabalin (LYRICA) capsule 100 mg 1 2023 [...] ADM ELOG) 100 unit/mL injection 0-5 Units 2 08/10/2024 07/27/2024 pregabalin (LYRICA) capsule 50 mg 1 024 QUEtiapine (SEROquel) tablet 25 mg 2 202307/28/2024 potassium chloride ER (KLOR- CON) extended release tablet 40 mEq 9 08/09/2024 07/28/2024 acetaminophen (TYLENOL) tablet 650 mg 2 11/202308/04/2024 atorvastatin (LIPITOR) tablet 80 mg 1 08/08 Lactated Ringer's (LR) bolus 500 mL 3 08/0807/25/2024 magnesium oxide (MAG-OX) tablet 800 mg 1 ramelteon (ROZEREM) tablet 8 mg 1 potassium chloride ER (KLOR- CON) extended release tablet 30 mEq 3 08/07/2024 08/03/2024 QUEtiapine (SEROquel) tablet 50 mg 2 202307/28/2024 sacubitriL-valsartan (ENTRES TO) 24-26 mg tablet 1 tablet 1 08/07/2024 potassium chloride ER (KLOR- CON) extended release tablet 20 mEq 1 08/06/2024 insulin glargine (LANTUS, SE MGLEE) 100 unit/mL injection 35 Units 1 08/05/2024 acetaminophen (TYLENOL) tablet 1,000 mg 2 0 08/04/2024 07/24/2024 sodium chloride 0.9% infusion 1 08/04/2024 vancomycin 1500 mg/515 mL in sodium chloride 0.9% (premix) 1,500 mg 3 08/04/2024 07/24/20 bisacodyL (DULCOLAX) suppository 10 mg 3 07/26/2024 calcium chloride IV syringe 1 g 1 perflutren protein-a (OPTISO N) 3 mL in sodium chloride 0.9% 8 mL syringe 1 08/03/2024 senna (SENOKOT) tablet 1 tablet 2 4 07/24/2024 potassium chloride 40 mEq/10 0 mL in sterile water (premix) 40 mEq 8 08/02/2024 07/28/2024 bumetanide (BUMEX) 0.25 mg/m L injection 1 mg 4 08/01/2024 07/25/2024 HYDROmorphone (DILAUDID) injection 0.2 mg 5 08/01/2024 07/24/2024 insulin glargine (LANTUS, SE MGLEE) 100 unit/mL injection 40 Units 1 08/01/2024 metOLazone (ZAROXOLYN) tablet 10 mg 2 08/0107/31/2024 potassium chloride (KLOR-CON ) packet 40 mEq 2 08/01/2024 07/31/2024 acetaZOLAMIDE (DIAMOX) 500 m g in sterile water 10 mL (50 mg/mL) syringe 2 07/31/2024 lidocaine (PF) (XYLOCAINE) 1 0 mg/mL (1 %) preservative free injection - ADS Override Pull 1 07/31/2024 potassium chloride (KLOR-CON ) packet 20 mEq 1 07/31/2024 dextrose 5% and Lactated Ringer's infusion 1 07/30/2024 dextrose 5% infusion 1 07/30/2024 methocarbamoL (ROBAXIN) tablet 500 mg 3 07/25/2024 QUEtiapine (SEROquel) tablet 100 mg 1 07/30 mineral oil (FLEET MINERAL O IL) enema 133 mL 1 07/29/2024 phenylephrine in 0.9% sodium chloride (GER-SYNEPHRINE) 25,000 mcg/250 mL (100 mcg/mL) infusion (premix) solution 1 07/29/2024 EPINEPHrine in 0.9% sodium c hloride 5,000 mcg/250 mL (20 mcg/mL) infusion (premix) 14 07/28/2024 07/24/2024 epoprostenol (VELETRI) 20 mc g/ml in 0.9% sodium chloride inhalation solution 9 07/28/202407/09 magnesium sulfate 2 g/50 mL in water (premix) 2 g 2 07/28/2024 07/27/2024 polyethylene glycol (MIRALAX) packet 17 g 2 07/28/2024 07/24/2024 hydrOXYzine (ATARAX) tablet 25 mg 2 09/19/2 024 hydrOXYzine (ATARAX) tablet 50 mg 1 insulin glargine (LANTUS, SE MGLEE) 100 unit/mL injection 50 Units 1 07/27/2024 insulin lispro (HumaLOG, ADM ELOG) 100 unit/mL injection 0-10 Units 1 07/27/2024 isosorbide mononitrate ER (I MDUR) extended release tablet 15 mg 1 07/27/2024 bumetanide (BUMEX) 0.25 mg/mL infusion 1 aspirin chewable tablet 81 mg 2 07/25/2024 07/24/2024 atorvastatin (LIPITOR) tablet 40 mg 2 07/2507/24/2024 chlorhexidine (PERIDEX) 0.12 % solution 15 mL 3 07/25/2024 07/24/2024 clopidogreL (PLAVIX) tablet 75 mg 2 024 07/24/[address] (CYMBALTA) ext ended release capsule 60 mg 1 07/25/2024 furosemide (LASIX) 10 mg/mL injection 40 mg 1 07/25/2024 furosemide (LASIX) 10 mg/mL injection 80 mg 1 07/25/2024 heparin 5,000 unit/mL inject ion 5,000 Units 1 07/25/2024 norepinephrine in dextrose 5 % (LEVOPHED) 8,000 mcg/250 mL (32 mcg/mL) infusion (premix) 3 07/25/2024 07/24/2024 oxyCODONE (ROXICODONE) tablet 2.5 mg 1 07/09 oxyCODONE (ROXICODONE) tablet 5 mg 2 202307/24/2024 sodium zirconium cyclosilica te (LOKELMA) packet 10 g 1 07/25/2024 vasopressin in 5% dextrose ( VASOSTRICT) 20 unit/100 mL (0.2 unit/mL) infusion 2 07/25/202407/24 albumin 5 % bottle 12.5 g 1 07/24/2024 albumin 5 % bottle 25 g 1 07/24/2024 aspirin suppository 300 mg 1 07/24/2024 Carrier Fluids for Secondary Infusion - 0.9% Sodium Chloride 1 07/24/2024 ceFAZolin (ANCEF) 2,000 mg/2 0 mL in sterile water (premix) 2,000 mg 2 07/24/2024 DOBUTamine in dextrose 5% (D OBUTREX) 1,000 mg/250 mL (4,000 mcg/mL) infusion (premix) 2 07/24/2024 famotidine (PEPCID) 20 mg/50 mL in sodium chloride 0.9% (premix) 20 mg 1 07/24/2024 fentaNYL (SUBLIMAZE) preserv ative free injection 50 mcg 2 07/24/2024 HYDROmorphone (DILAUDID) injection 0.5 mg 1 07/24/2024 insulin lispro (HumaLOG, ADM ELOG) 100 unit/mL injection 2-7 Units 1 07/24/2024 insulin regular bolus from bag 4-10 Units 07/24/2024 insulin regular bolus from bag 4-6 Units 07/24/2024 insulin regular in 0.9% sodi um chloride (MYXREDLIN) 100 unit/100 mL (1 unit/mL) infusion (premix) 07/24/2024 Lactated Ringer's (LR) infusion 2 lidocaine (XYLOCAINE) 10 mg/ mL (1 %) injection 100 mg 07/24/2024 metoprolol tartrate immediat e release capsule 6.25 mg 07/24/2024 nitroglycerin in dextrose 5% 50 mg/250 mL (200 mcg/mL) infusion (premix) 2 07/24/2024 ondansetron (ZOFRAN) injection 4 mg 07/24 oxymetazoline (AFRIN) 0.05 % nasal spray 1 spray 07/24/2024 pantoprazole (PROTONIX) 40 m g in sodium chloride 0.9% 10 mL IV Syringe 07/24/[address] (PROTONIX) e xtended release tablet 40 mg 07/24/2024 papaverine injection 1 07/24/2024 potassium chloride 20 mEq/50 mL in sterile water (premix) 20 mEq 1 07/24/2024 propofol (DIPRIVAN) 10 mg/mL infusion senna 1.76 mg/mL syrup 8.8 mg 07/24/2024 sodium chloride 0.9% flush 0.5-20 mL 1 07/09 sodium chloride 0.9% flush 10-30 mL 1 07/24 sodium chloride 0.9% irrigation 1 sodium chloride 0.9% solution 2 07/24/2024 sterile water irrigation 1 07/24/2024 vancomycin (VANCOCIN) solution 1 07/24/2024 vancomycin 1,000 mg/50 mL in sterile water (premix) 1,000 mg 1 07/24/2024 Lab Orders Without Results Count Last Ordered D ate First Ordered Date POCT GLUCOSE DEVICE 161 08/11/2024 07/25/20 POTASSIUM, WHOLE BLOOD 1 07/25/2024 Imaging Orders [...] 07/24/2024 documented in this encounter Care Teams Chief Ar[place] Division Relationship Specialty Start Date End Date Juan Retana MD [address] [facility]IMARY [facility]ARE TEAM [address] [place] [address] PCP - General Internal Medicine 07/05/24 [facility], Alverto Gutierrez [address] [place] [address] Referring Physician Cardiology 07/05/24 documented as of this encounter
--- OUTSIDE RECORDS SUMMARY | 2024-11-17 04:28 | XMS_ITS | Encounter Summary ---
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] Procedures HC CABG, ART-VEIN, TWO IL NDSC SURG W/VIDEO-ASSISTED HARVEST VEIN CABG CORONARY ARTERY BYPASS GRAFT WITH PUMP ENDOSCOPIC VESSEL HARVEST - BURGESS VEIN Referral ID Status Reason Start Date Expiration Date Visits Re quested Visits Authorized [id number] 1 1 Encounter Details Date Type Department Care Team (Late st Contact Info) Description 07/24/2024 8:05 AM CDT Ancillary Procedure [facility] Operating Room [address] [place] [address] Social History Tobacco Use Types Packs/Day Years [...] on file 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 Cristina Phipps MD CV ECHO PROCEDURES Final Result [facility] PROSOLV_CARDIOREPORT_CONS SCIMAGE documented in this encounter Visit Diagnoses Not on filedocumented in this encounter Care Teams Ruby Rails Developer Relationship Specialty Start Date End Date Juan Retana MD [address] [facility] PR[facility]ARE TE[address] [place] [address] PCP - General Internal Medicine [facility] [address] [place] [id number] Referring Physician Cardiology 07/05/24 documented as of this encounter
--- OUTSIDE RECORDS SUMMARY | 2024-11-17 04:28 | XMS_ITS | Encounter Summary ---
Author Organization [facility] Address [address] [place] [address] Phone Care Team Providers Care Campground Manager Name Role Phone Juan Retana MD Primary Care Provider [phone] [facility], Alverto Gutierrez Unavailable Reason for Referral * Cardiology (Routine) - Closed Specialty Diagnoses / Procedures Referred By Contac t Referred To Contact Diagnoses Encounter for fitting or adjustment of automatic implantable cardioverter-defibrillator Procedures DEVICE CHECK - IN OFFICE Altagracia Roman NP [address] [place] [address] Phone: tel: fax: [facility] (All Locations) Referral ID Status Reason Start Date Expiration Date Visits Re quested Visits Authorized [id number] Closed 08/03/2024 09/02/2025 1 1 Encounter Details Date Type Department Care Team (Late st Contact Info) Description 08/03/2024 Orders Only [facility] Cardiology [address] [facility] Advanced Medicine 8th [place] [address] [place] [address] Altagracia Roman NP [address] [place] [address] Encounter for fitting or adjustment of automatic implantable cardioverter-defibrill ator (Primary Dx) Social History Tobacco Use Types [...] on file 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 Presenting Rhythm (VA) Atrial Sensing-BiVentricular Pacing (-BiVP) --- /BiVP 85 bpm. Underlying /VS, COMPLETE HEART BLOCK 40 bpm. Arrhythmic events (AE) No new arrhythmic events in monitoring period Transmission Information (TI) Device Summary Report Procedure Note Khari Santana MD - 08/15/2024 Interpretation Summary: Battery and Leads (BL) Normal parameters noted on battery and lead(s) --- Estimated batterylongevity 8.3 years. Presenting Rhythm (VA) Atrial Sensing-BiVentricular Pacing (-BiVP) --- /BiVP 85 bpm.Underlying /VS, COMPLETE HEART BLOCK 40 bpm. 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 PRODUCTION MANAGER CV CARDIAC SERVICES PROCEDUR ES Final Result documented in this encounter Visit Diagnoses Diagnosis Encounter for fitting or adjustment of automatic implantable cardioverter-defibrillator- Primary Complete heart block (CMS/HCC) (HCC) [I44.2]- Primary Atrioventricular block, complete Encounter for fitting or adjustment of automatic implantable cardioverter-defibrillator documented in this encounter Care Teams Campground Manager Relationship Specialty Start Date End Date Juan Retana MD [address] [facility] PRIMARY CARE TEAM [address] [place] [address] PCP - General Internal Medicine 07/05/24 [facility], Alverto Gutierrez [address] [place] [address] Referring Physician Cardiology 07/05/24 documented as of this encounter
--- OUTSIDE RECORDS SUMMARY | 2024-11-17 04:29 | XMS_ITS | Encounter Summary ---
Author Organization [facility] Healthcare Address [address] [facility] [place] [address] Care Team Providers Care Collections Attorney Name Role Phone Juan Retana MD Primary Care Provider [phone] [facility], Alverto Gutierrez Unavailable Reason for Visit * Auth/Cert (Routine) Specialty Diagnoses / Procedures Referred By Contac t Referred To Contact Diagnoses CAD, multiple vessel CAD, 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] Procedures HC CABG, ART-VEIN, TWO RI NDSC SURG W/VIDEO-ASSISTED HARVEST VEIN CABG CORONARY ARTERY BYPASS GRAFT WITH PUMP ENDOSCOPIC VESSEL HARVEST - BURGESS VEIN Referral ID Status Reason Start Date Expiration Date Visits Re quested Visits Authorized [id number] 1 1 Encounter Details Date Type Department Care Team (Late st Contact Info) Description 07/24/2024 8:00 AM CDT - 07/24/2024 4:55 PM CDT Surgery [facility] Operating Room [address] [place] [address] Leonor Quan MD [id number] [place] [address] CORONARY ARTERY BYPASS GRAFT WITH PUMP x3 Surgery Details Date/Time Status Location OR Service Patient Class Case Class Case Type Trauma Case? 07/24/2024 8:00 AM Posted [facility] OR POD 3 308 Cardiothoracic Surgery Admit Elective Panel 1 Procedure LRB Anes Op Region Wound Class Comments CORONARY ARTERY BYPASS GRAFT WITH PUMP x3 N/A General Chest Class I - Clean ENDOSCOPIC VESSEL HARVEST - BURGESS VEIN Right General Thigh Class I - Clean HARVEST - RADIAL ARTERY Left General Arm Lower Class I - Clean CLOSURE STERNAL - WITH PLATES N/A General Chest Class II - Clean Contaminated Surgeon Surgeon Role Service Panel Leonor Quan MD Primary Cardiothoracic 1 Tala Amador MD Fellow General Surger y 1 documented in this encounter Social History [...] on file Legal Sex Male 1:06 PM FEE CLERK Gender Identity Not on file Sexual Orientation Not on file documented as of this encounter Last Filed Vital Signs Vital Sign Reading Time Taken Comments Blood Pressure 149/123 07/24/2024 7:42 AM CDT Pulse 100 07/24/2024 4:45 PM CDT Temperature 36 ??C (96.8 ??F) 07/24/2024 6:29 AM CDT Respiratory Rate 18 07/24/2024 4:45 PM CDT Oxygen Saturation 99% 07/24/2024 4:45 PM CDT Inhaled Oxygen Concentration - - Weight - - Height - - Body Mass Index - - documented in this encounter Discharge Summaries * Cindy Pacheco NP - 08/11/2024 11:29 AM CDT Inpatient Discharge Summary BRIEF OVERVIEW Admitting Provider: Grinder And Plater MD Bird Discharge Provider: Leonor Quan MD Primary Care Physician at Discharge: Juan Retana MD [phone] Admission Date: 07/24/2024 Discharge Date: 08/11/2024 Admission Location: [facility] Primary Discharge Diagnosis: CAD - 07/24/24: CABG x 3 (BURGESS to LAD, left radial to OM, SVG to PDA and sternal plating. CHB - 08/04/24: PPM implantation ([employer] EMERGENCY DEPARTMENT MANAGER-D with EP (DDD 60-100). Secondary Discharge Diagnosis: [...] RCA subtotal occlusion. He was referred to [facility] for surgical management. Hospital Course: Mr. [...] lab on 08/04/24 for PPM implantation ([employer] EMERGENCY DEPARTMENT MANAGER-D with EP (DDD 60-100). Post pacemaker implantation, [...] is deemed ready for discharge to the [facility] for further rehabilitation. See post op [...] for pain. Notify the physician office at [phone] immediately if you develop abrupt pain or swelling. If you feel there is an urgent matter, call 911 or go to the emergency room. Call the office at [phone] with any routine questions or concerns. If you are unable to reach your doctor please call [facility] information technology internship at [phone]. He or she will contact the physician [...] INSERT/REPLACE IMPLANTABLE CARDIOVERTER-DEFIBRILLATOR (ICD) DUAL CHAMBER SYSTEM 26152 INSERT LV LEAD W PACEMAKER (PPM) OR IMPLANTABLE CARDIOVERTER-DEFIBRILLATOR (ICD) PLACEMENT (+) [id number] Discharge Details Physical Exam at Discharge: Discharge [...] Lab Units 08/11/24 0810 08/10/24 2233 08/10/24200208/10/24 0813 08/09/24 2151 08/09/24 0808/08/24 2202 SODIUM mmol/L -- [...] daily pen needle, diabetic 32 gauge x / needle Doctor's comments: May substitute one size [...] Cardiology 09/12/2024 1:15 PM Leonor Quan MD [facility] Contact Information for Follow-ups Leonor Quan MD Specialty: General Surgery, Cardiothoracic Surgery, Thoracic Surgery Relationship: Consulting Physician [id number] [place] [address] Next Steps: Follow up Comments: Dr. Quan (or a Cardiac Surgery ASSET COORDINATOR) will see you for follow up in approximately 4 weeks in their office at the [facility] ([address] [place] [address], [address], [address], [place] [address]). Please call [phone] for questions/concerns or to change your appointment. [...] for pain. Notify the physician office at [phone] immediately if you develop abrupt pain or swelling. If you feel there is an urgent matter, call 911 or go to the emergency room. Call the office at [phone] with any routine questions or concerns. If you are unable to reach your doctor please call [facility] information technology internship at [phone]. He or she will contact the physician [...] mg total) by mouth daily 08/12/2024 5 bumetanide (BUMEX) 1 mg tablet Take 0.5 [...] 5 pen needle, diabetic 32 gauge x /32 [...] Summary Discharge Disposition Acute Rehab Specify Facility [facility] Contact Number [phone], ext. [phone] Facility Attending Name Simeon Facility Attending Contact Number [phone], [phone]. [phone] Discharge Records Transfer Form Completed;Chart Copied Recommended Discharge Level of Care Acute Rehab Actual Discharge Level of Care Acute Rehab Does Actual Level of Care Match Care Team Recommendation? Yes Post Acute Care Plan Home Care Services N/A OP Services N/A DME N/A Post Acute Care Facility Yes Referral Status Accepted Accepted Post Acute Care Location and Contact [facility] Accepted Post Acute Care Discharge Additional Assistance Does the patient need discharge transport arranged? Yes Type of Transportation Ambulance/EMS Has discharge transport been arranged? Yes Details of Transportation [facility] per MD D/C Transport Anticipated Date 08/11/24 D/C Transport [...] has been acceptedto [facility]. CM spoke with the patient/family, admissions, medical team, and RN regardingdischarge planning, and all are agreeable to discharge. Post-acute care transfer packet completed an d will be sent with the patient. RN provided with report number to nurses station. Room # [address] [place] [address] provided by facility. Mode of transport has [...] History: adjusting insulins today. Working on placement (MD) OBJECTIVE Current Facility-Administered Medications: acetaminophen (TYLENOL) tablet [...] DM2 (diabetes mellitus, type 2) ([facility]) Assessment & Plan - Home regimen: Lantus 90 units - 07/14 A1C 7.5 - Lantus 35 units + SSI with low glucoses, will hold lantus and use SSI only for now Restart Lyrica for neuropathy (200 BID at home) Complete heart block (CMS/HCC) ([facility]) Assessment & Plan EP consulted S/P [...] CABG x3 and Sternal Plating (08/03). 07/31: TEST CLERK eval regular texture and thin liquids, order [...] 26* 24 CREATININE mg/dL 0.91 0.97 1.01 [id number] mL/min/1.73 m2 90 83 79 CALCIUM mg/dL [...] of Weight Used for Estimated Protein : [place] Total Fluid Estimated Needs: 1882.5 Fluid Needs Based on : 25 ml/kg Type of Weight Used for Estimated Fluid Needs: [place] Dietary Orders (From admission, onward) Start Ordered 08/08/242015 Adult Diet Restricted; Mechanical Soft; Consistent Carbohydrate; Regular Liquid Diet effective now Question Answer Comment ([facility]) Diet type Restricted Modified Consistency: Mechanical [...] Weight changes Rehana Stallworth MS, RD, LD [facility] [phone] On-call/weekend: [phone] * Cami Thakur PTA - 08/09/2024 2:40 [...] treatment team and contact the PT or CHIP SILO TENDER currently assigned to this patient. If a physical therapy clinician is not assigned to this patient, please call [phone]. 08/09/24 1440 PT Last Visit Session Type [...] complaint of none. Interval History: waiting on md bed OBJECTIVE Current Facility-Administered Medications: acetaminophen (TYLENOL) [...] Bianka Gallagher NP, 15 mg at 08/09/24 100 magnesium oxide (MAG-OX) tablet 800 mg, 800 mg, oral, BID, Kathrin Humphrey NP, 800 mg at 08/09/24 100 methocarbamoL (ROBAXIN) tablet 500 mg, 500 mg, oral, TID, Asya Brandon MD, 500 mg at 08/09/24 100 ondansetron (ZOFRAN) injection 4 mg, 4 mg, [...] DM2 (diabetes mellitus, type 2) ([facility]) Assessment & Plan - Home regimen: Lantus 90 units - 9/6 A1C 7.5 - Lantus 35 units + SSI Complete heart block (CMS/HCC) ([facility]) Assessment & Plan EP consulted S/P [...] Nacho, Va Medeiros NP, 3.125 mg at 08/08/24 09 clopidogreL (PLAVIX) tablet 75 mg, 75 mg, oral, Daily, Asya Brandon MD, 75 mg at 08/08/2430 dextrose gel in packet 15 g, 15 [...] DAVINA, Mayi Richardson NP, 35 Units at 08/08/2430 insulin lispro [...] Asya Brandon MD, 15 mg at 08/08/24 0929 methocarbamoL (ROBAXIN) tablet 500 mg, 500 mg, [...] DM2 (diabetes mellitus, type 2) ([facility]) Assessment & Plan - Home regimen: Lantus 90 units - 07/14 A1C 7.5 - Lantus 35 units + SSI Complete heart block (CMS/HCC) (HCC) Assessment & [...] at 08/08/2024 11:40 AM CDT * Bonnie Farr OT - 08/08/2024 10:31 AM CDT Occupational [...] not assigned to this patient, please call [phone]. 08/08/24 1031 General Chart Reviewed Yes Session [...] Single point cane Prior Function Level of [place] Independent with ADLs;Independent functional transfers;Independent with ambulation;Needs [...] CABG x3 and Sternal Plating (08/03). 07/31: TEST CLERK eval regular texture and thin liquids, order [...] glucagon ondansetron oxyCODONE Recent Labs Lab Units 09/29/24 2039 09/28/24 2141 09/27/24 2128 SODIUM mmol/L 135 136 139 POTASSIUM PLASMA mmol/L 3.3 3.0* 4.5 CHLORIDE mmol/L 96* 99 101 CO2 mmol/L 27 28 25 BUN SERUM mg/dL 25 30* 33* CREATININE mg/dL 1.01 1.09 1.10 [id number] mL/min/1.73 m2 79 72 71 CALCIUM mg/dL [...] of Weight Used for Estimated Protein : [place] Total Fluid Estimated Needs: 1882.5 Fluid Needs Based on : 25 ml/kg Type of Weight Used for Estimated Fluid Needs: [place] Dietary Orders (From admission, onward) Start Ordered 08/07/24 1700 Oral Nutrition Supplements ([facility]) Select Supplement: Glucerna Shake - [place] With Breakfast and Dinner Question: ([facility]) Select Supplement: Answer: Glucerna Shake - [place] 08/07/24 1240 08/04/24 1658 Adult Diet Restricted; Mechanical Soft; Regular Liquid Diet effective now Question Answer Comment ([facility]) Diet type Restricted Modified Consistency: Mechanical [...] Weight changes Rehana Stallworth MS, RD, LD [facility] [phone] On-call/weekend: [phone] * Va Griffith NP - 08/07/2024 12:19 PM CDT Cardiac Surgery Daily Progress 07/24 CABG x 3 08/04 EMERGENCY DEPARTMENT MANAGER-D placement SUBJECTIVE Chief complaint of none. Interval History: States he is eating a little better every day. Started coreg yesterday, jdwell. Will plan to add Entresto today or tomorrow. Discharge to [facility] when bed available. OBJECTIVE Current Facility-Administered Medications: acetaminophen (TYLENOL) tablet 1,000 mg, 1,000 mg, oral, Q6H HILDAMelissa Maxwell Craig, MD, 1,000mg at 08/07/24 1218 aspirin chewable tablet 81 mg, 81 mg, oral, Daily, Asya Brandon MD, 81 mg at 08/07/24 0857 atorvastatin (LIPITOR) tablet 40 mg, 40 mg, oral, Daily, Asya Brandon MD, 40 mg at 08/07/24 0859 carvediloL (COREG) tablet 3.125 mg, 3.125 mg, oral, BID with meals (bkfst, dinner), Nacho, Va Medeiros NP, 3.125 mg at 08/07/24 0857 clopidogreL [...] unit/mL injection 35 Units, 35 Units, subcutaneous, QA, Debra, Mayi Fritz NP, 35 Units at [...] MD, 5 mg at 08/07/24 0858 pantoprazole (PROTONIX) extended release tablet 40 mg, [...] DM2 (diabetes mellitus, type 2) ([facility]) Assessment & Plan - Home regimen: Lantus 90 units - 07/14 A1C 7.5 - Lantus 35 units + SSI Complete heart block (CMS/HCC) ([facility]) Assessment & Plan EP consulted S/P [...] Daily Progress 07/24 CABG x 3 08/04 EMERGENCY DEPARTMENT MANAGER-D placement 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 Interval [...] Daily, Asya Brandon MD, 75 mg at 08/06/24939 dextrose gel in packet 15 g, 15 g, oral, Q15 Min PRN OR dextrose (D10W) 10% bolus 250 mL, 250 mL, intravenous, Q15 Min PRN, Asya Brandon MD DULoxetine (CYMBALTA) extended release capsule 60 mg, 60 mg, oral, Nightly, Asya Brandon MD, 60 mg at 08/05/24 213 glucagon injection 1 mg, 1 mg, intramuscular, Q30 Min PRN, Asya Brandon MD insulin glargine (LANTUS, SEMGLEE) 100 unit/mL injection 35 Units, 35 Units, subcutaneous, QAM, Debra, Mayi Fritz NP, 35 Units at 08/06/24939 insulin lispro (HumaLOG, [...] MD, 5 mg at 08/06/24 0316 pantoprazole (PROTONIX) extended release tablet 40 mg, 40 mg, oral, Daily, Asya Brandon MD, 40 mgat 09/29/24 0940 potassium chloride ER (KLOR-CON) extended release [...] DM2 (diabetes mellitus, type 2) ([facility]) Assessment & Plan - Home regimen: Lantus 90 units - / A1C 7.5 - Lantus 35 units + SSI Complete heart block (CMS/HCC) ([facility]) Assessment & Plan EP consulted S/P [...] treatment team and contact the PT or CHIP SILO TENDER currently assigned to this patient. If a physical therapy clinician is not assigned to this patient, please call [phone]. 08/06/24 1076 PT Last Visit Session Type Treatment PT [...] independence with functional mobility. * Mayi Richardson, JUSTYN - 08/05/2024 4:05 PM CDT Cardiac Surgery Daily Progress 1 Day Post-Op SUBJECTIVE Chief complaint of no new complaints Interval History: DC temp pacing wires OBJECTIVE Current Facility-Administered Medications: acetaminophen (TYLENOL) tablet 1,000 mg, 1,000 mg, oral, Q6H [facility], Dwain Torres MD, 1,000mg at 08/05/24 1218 aspirin chewable tablet 81 mg, 81 mg, oral, Daily, Asya Brandon MD, 81 mg at 08/05/24 0912 atorvastatin (LIPITOR) tablet 40 mg, 40 mg, oral, Daily, Asya Brandon MD, 40 mg at 08/05/24 09 clopidogreL (PLAVIX) tablet 75 mg, 75 mg, oral, Daily, Asya Brandon MD, 75 mg at 08/05/24 0913 dextrose gel in packet 15 g, 15 [...] Asya Brandon MD, 2 Units at 08/03/24 122 insulin lispro (HumaLOG, ADMELOG) 100 unit/mL injection 0-5 Units, 0-5 Units, subcutaneous, Nightly, Asya Brandon MD, 1 Units at 07/31/242025 isosorbide mononitrate ER (IMDUR) extended release tablet 15 mg, 15 mg, oral, Daily, Asya Brandon MD, 15 mg at 08/05/24 09 methocarbamoL (ROBAXIN) tablet 500 mg, 500 [...] Nightly, Asya Brandon MD, 100 mg at 08/04/242117 Vitals: 24hr Min/Max: Temp Min: 36.3 ??C [...] - Next Appointment 08/05/24 * Shantal Elizabeth ASSET COORDINATOR - 08/04/2024 7:15 AM CDTAssociated Order(s): Critical [...] 2 and b/l chest tubes. Changed from SOAKER SODA WORKER to Epi. 07/25: Inhaled Veletri added for worsening RV dysfunction. 07/26: Unable to wean Veletri d/t increasing PA pressures, Bumex gtt 07/27: Veletri wean, epi at 0.05 07/28: Veletri weaned off 07/29: Epi 0.02, chest/med tubes removed 07/29: Epi wean, bumex gtt dc'd, diamox x3 07/30: Epi off 07/31: Diamox x3 07/31: EP c/s, awaiting PPM Interval History: - [employer] EMERGENCY DEPARTMENT MANAGER-D with EP (DDD 60-100) - TTF Objective [...] Gas and Chemistries, Venous - Collection Time: 09/27/24 4:13 AM Result Value Ref Range pH, [...] sternal plating - Post CPB EMILE on SOAKER SODA WORKER 5 w/ mildly improved LV function (from [...] 08/03) #Dysphagia - Diet as above - TEST CLERK following #GERD, chronic - Continue home PPI [...] plan with the patient's team and other medical/programmer analyst consultant staff. This time was in addition [...] 6:02 AM with chief complaint of s/p CABG x3. PMH: HTN, HLD, CAD, moderate MR, 2nd [...] and b/l chest tubes. Changed fro m SOAKER SODA WORKER to Epi. 07/25: Inhaled Veletri added for [...] sternal plating - Post CPB EMILE on SOAKER SODA WORKER 5 w/ mildly improved LV function (from [...] 08/03) #Dysphagia - Diet as above - TEST CLERK following #GERD, chronic - Continue home PPI Endocrine: #DM2, chronic - Home regimen: Lantus 90 units - / A1C 7.5 - Lantus 40 units + [...] Care: DVT prophylaxis: SCDs, SQRyanne Vascular access: RIJ QLC (07/24), arterial line [...] plan with the ICU team and other medical/programmer analyst consultant staff, making frequent assessments and decisions [...] 2 and bilateral chest tubes. Changed from SOAKER SODA WORKER to Epi. 07/25: Inhaled Veletri added for [...] hours) at 08/02/20241939 Last data filed at 08/02/2024 1900 Gross per 24 hour Intake 484 ml Output 2000 ml Net -1516 ml Ventilator settings: FiO2 (%): 21 % (08/02 043) Hemodynamic parameters: PAP: -- CVP: 5 mmHg [...] clean, dry, intact. SVG site with dermabond COSMO. Laboratory data: Recent Labs Lab Units 08/01/24233007/31/24231507/30/242338 WBC K/cumm 8.3 5.6 4.0 HEMOGLOBIN g/dL 8.2* 7.4* 7.3* HEMATOCRIT % 25.5* 24.4* 23.5* PLATELETS K/cumm 154 121* 91* Recent Labs Lab Units 08/01/24233007/31/24231507/30/242338 SODIUM mmol/L 142 144 148* POTASSIUM PLASMA [...] and sternal plating Post CPB EMILE on SOAKER SODA WORKER 5 w/ mildly improved LV function (from [...] plan with the ICU team and other medical/programmer analyst consultant staff, making frequent assessments and decisions [...] 08/03/2024 5:42 PM CDT * Zen Amaral Miguel - 08/02/2024 3:17 PM CDT Physical Therapy [...] treatment team and contact the PT or CHIP SILO TENDER currently assigned to this patient. If a physical therapy clinician is not assigned to this patient, please call [phone]. 08/02/24 1436 PT Last Visit Session Type Treatment PT [...] independence with functional mobility. Cosigned by Viry Soliman PT at 08/02/2024 4:04 PM CDT * Mala Latif NP - 08/02/2024 6:00 AM CDTAssociated Order(s): Critical Care Post-Procedure Diagnose(s): Coronary artery disease, unspecified vessel or lesion type, unspecifiedwhether angina present, unspecified whether standing rock or transplanted heart Surgical ICU Daily Progress [...] 2 and bilateral chest tubes. Changed from SOAKER SODA WORKER to Epi. 07/25: Inhaled Veletri added for [...] are again seen. The right internal jugular Gilman-Gwen catheter tip is over the right ventricular [...] sternal plating - Post CPB EMILE on SOAKER SODA WORKER 5 w/ mildly improved LV function (from [...] discussed with ICU attending/ICU fellow Mala Latif [facility] Critical Care Performed by: Mala Latif [...] plan with the ICU team and other medical/programmer analyst consultant staff, making frequent assessments and decisions [...] 2 and bilateral chest tubes. Changed from SOAKER SODA WORKER to Epi. 07/25: Inhaled Veletri added for [...] Infusions:Lactated Ringer's, 10 mL/hr, Last Rate: Stopped (07/30/24212) [...] are again seen. The right internal jugular Gilman-Gwen catheter tip is over the right ventricular [...] sternal plating - Post CPB EMILE on SOAKER SODA WORKER 5 w/ mildly improved LV function (from [...] lesion type, unspecifiedwhether angina present, unspecified whether standing rock or transplanted heart Surgical ICU Daily Progress [...] 2 and bilateral chest tubes. Changed from SOAKER SODA WORKER to Epi. 07/25: Inhaled Veletri added for [...] are again seen. The right internal jugular Gilman-Gwen catheter tip is over the right ventricular [...] sternal plating - Post CPB EMILE on SOAKER SODA WORKER 5 w/ mildly improved LV function (from [...] plan discussed with ICU attending/ICU fellow [facility] Care Performed by: Mala Latif NP [...] plan with the ICU team and other medical/programmer analyst consultant staff, making frequent assessments and decisions [...] lesion type, unspecifiedwhether angina present, unspecified whether standing rock or transplanted heart Surgical ICU Daily Progress [...] are again seen. The right internal jugular Gilman-Gwen catheter tip is over the right ventricular [...] sternal plating - Post CPB EMILE on SOAKER SODA WORKER 5 w/ mildly improved LV function (from [...] #JACQUELINE, chronic - Home nocturnal CPAP - AJCQUELINE precautions GI: Diet: Mechanical soft with thin [...] plan with the patient's team and other medical/programmer analyst consultant staff. This time was in addition [...] not assigned to this patient, please call [phone]. 07/31/24 1146 General Session Type Treatment (co-treat with PT) [...] Static Standing-Balance Support Bilateral upper extremity supported (SR. MERCHANDISE PLANNER) Static Standing-Standing Surface Floor Static Standing-Level of [...] treatment team and contact the PT or CHIP SILO TENDER currently assigned to this patient. If a physical therapy clinician is not assigned to this patient, please call [phone]. Co-session complete with OT due to patient's [...] independence with functional mobility. * Mala Latif ASSET COORDINATOR - 07/31/2024 6:00 AM CDTAssociated Order(s): Critical Care Post-Procedure Diagnose(s): Coronary artery disease, unspecified vessel or lesion type, unspecifiedwhether angina present, unspecified whether standing rock or transplanted heart Surgical ICU Daily Progress Team: 8200 AM 2 Subjective Patient is a 74 y.o. male admitted on 07/24/2024 6:02 AM with chief complaint of CAD s/p CABG. Interval History: - Consult EP: recs to obtain EKG with underlying rhythm - CTS: decreased pacer to DDD at 90, removed SWAN - FBG negative - TEST CLERK: mechanical soft with thin liquids - replete [...] are again seen. The right internal jugular Gilman-Gwen catheter tip is over the right ventricular [...] sternal plating - Post CPB EMILE on SOAKER SODA WORKER 5 w/ mildly improved LV function (from [...] discussed with ICU attending/ICU fellow Mala Latif [facility] Critical Care Performed by: Mala Latif [...] plan with the ICU team and other medical/programmer analyst consultant staff, making frequent assessments and decisions [...] lesion type, unspecifiedwhether angina present, unspecified whether standing rock or transplanted heart Surgical ICU Daily Progress [...] are again seen. The right internal jugular Gilman-Gwen catheter tip is over the right ventricular [...] sternal plating - Post CPB EMILE on SOAKER SODA WORKER 5 w/ mildly improved LV function (from [...] plan with the ICU team and other medical/programmer analyst consultant staff, making frequent assessments and decisions [...] lesion type, unspecifiedwhether angina present, unspecified whether standing rock or transplanted heart CT ICU Daily Progress [...] 2 and bilateral chest tubes. Changed from SOAKER SODA WORKER to Epi. 07/25: Inhaled Veletri added for [...] wean off at 2200 - NPO, per TEST CLERK, ok for crushed meds in applesauce. Plan [...] sternal plating - Post CPB EMILE on SOAKER SODA WORKER 5 w/ mildly improved LV function (from [...] plan with the ICU team and other medical/programmer analyst consultant staff, making frequent assessments and decisions [...] lesion type, unspecifiedwhether angina present, unspecified whether standing rock or transplanted heart Surgical ICU Daily Progress [...] Ringer's, 10 mL/hr, Last Rate: 10 mL/hr (07/28/24 2300) sodium chloride 0.9%, 3-12 mL/hr, Last Rate: [...] are again seen. The right internal jugular Gilman-Gwen catheter tip is over the right ventricular [...] sternal plating - Post CPB EMILE on SOAKER SODA WORKER 5 w/ mildly improved LV function (from [...] plan with the ICU team and other medical/programmer analyst consultant staff, making frequent assessments and decisions [...] lesion type, unspecifiedwhether angina present, unspecified whether standing rock or transplanted heart CT ICU Daily Progress [...] 2 and bilateral chest tubes. Changed from SOAKER SODA WORKER to Epi. 07/25: Inhaled Veletri added for worsening RV dysfunction. 07/26: Unable to wean Veletri d/t increasing PA pressures 07/27: Veletri wean, epi at 0.05 07/28: Veletri weaned off Interval History: - Bumex decreased to 1 mg/hr--> off - Diamox 500 mg x3 - Epi weaned to 0.03, plan to wean q12 - TEST CLERK c/s for difficulty swallowing - EP c/s [...] sternal plating - Post CPB EMILE on SOAKER SODA WORKER 5 w/ mildly improved LV function (from [...] DVT PPx: SCDs, SQH ID: - WBC: 4.2 - Afebrile - [...] plan with the ICU team and other medical/programmer analyst consultant staff, making frequent assessments and decisions [...] lesion type, unspecifiedwhether angina present, unspecified whether standing rock or transplanted heart CT ICU Daily Progress [...] 2 and bilateral chest tubes. Changed from SOAKER SODA WORKER to Epi. 07/25: Inhaled Veletri added for [...] sternal plating - Post CPB EMILE on SOAKER SODA WORKER 5 w/ mildly improved LV function (from [...] plan with the ICU team and other medical/programmer analyst consultant staff, making frequent assessments and decisions [...] at 07/30/2024 12:54 PM CDT * Shantal Elizabeth, JUSTYN - 07/28/2024 7:32 AM CDTAssociated Order(s): Critical Care Post-Procedure Diagnose(s): Coronary artery disease, unspecified vessel or lesion type, unspecifiedwhether angina present, unspecified whether standing rock or transplanted heart CT ICU Daily Progress [...] 2 and bilateral chest tubes. Changed from SOAKER SODA WORKER to Epi. 07/25: Inhaled Veletri added for worsening RV dysfunction. 07/26: Unable to wean Veletri d/t increasing PA pressures 07/27: Veletri wean, epi at 0.05 Interval History: 07/28 AM - Seroquel 25 mg AM, 50 mg PM - Veletri wean q4 - Continue bumex gtt, epinephrine 0.05 - Potassium repleted - d/c Cordisneno Objective Physical Exam: General: No Acute Distress, [...] sternal plating - Post CPB EMILE on SOAKER SODA WORKER 5 w/ mildly improved LV function (from [...] plan with the ICU team and other medical/programmer analyst consultant staff, making frequent assessments and decisions [...] lesion type, unspecifiedwhether angina present, unspecified whether standing rock or transplanted heart CT ICU Daily Progress [...] 2 and bilateral chest tubes. Changed from SOAKER SODA WORKER to Epi. 07/25: Inhaled Veletri added for [...] sternal plating - Post CPB EMILE on SOAKER SODA WORKER 5 w/ mildly improved LV function (from [...] plan with the ICU team and other medical/programmer analyst consultant staff, making frequent assessments and decisions [...] not assigned to this patient, please call [phone]. 07/27/24 0808 General Chart Reviewed Yes Session [...] Static Standing-Balance Support Bilateral upper extremity supported (SR. MERCHANDISE PLANNER) Static Standing-Standing Surface Floor Static Standing-Level of [...] Comments limited AROM noted, PROM WFL, decreased geoscience technician strength LUE Assessment LUE Assessment X LUE Comments limited AROM noted, PROM WFL, decreased geoscience technician strength Daily Activity - 6 Clicks Putting [...] Evaluation Complete Yes Time Calculation Start Time 0808 Stop Time 0837 Time Calculation (min) 29 [...] lesion type, unspecifiedwhether angina present, unspecified whether standing rock or transplanted heart CT ICU Daily Progress [...] 2 and bilateral chest tubes. Changed from SOAKER SODA WORKER to Epi. 07/25: Inhaled Veletri added for [...] sternal plating - Post CPB EMILE on SOAKER SODA WORKER 5 w/ mildly improved LV function (from [...] plan with the ICU team and other medical/programmer analyst consultant staff, making frequent assessments and decisions [...] lesion type, unspecifiedwhether angina present, unspecified whether standing rock or transplanted heart ICU Daily Progress Shifts: [...] sternal plating. Overnight changed to Epi from SOAKER SODA WORKER. 07/25: Inhaled Veletri added for worsening RV [...] (07/26 1611) Hemodynamic parameters: PAP: 60/38 (07/26 1700) CVP: 15 mmHg (09/18 1700) PCWP: -- CO: -- CI: -- [...] : castro with clear yellow urine Skin: [place], warm, dry, midline sternal incision covered w/ OR dressing intact, MCT x2. R thigh SVG site covered w/ gauze and MELONIE wrap, intact. Bulb CINTIA to self- suction. L forearm incision covered w/ dressing, intact. Bulb CINTIA to self suction. Laboratory data: Recent Labs Lab Units 07/26/24 0033 07/25/24 0802 07/25/248 07/25/24 0223 07/24/24 1621 WBC K/cumm 14.9* [...] and sternal plating. Post CPB EMILE on SOAKER SODA WORKER 5 w/ mildly improved LV function (from [...] plan with the ICU team and other medical/programmer analyst consultant staff, making frequent assessments and decisions [...] MD at 07/30/2024 12:57 PM CDT * Jourdan Viry, PT - 07/26/2024 9:29 AM CDT Physical [...] treatment team and contact the PT or CHIP SILO TENDER currently assigned to this patient. If a physical therapy clinician is not assigned to this patient, please call [phone]. 07/26/24 0869 General Chart Reviewed Yes Session Type Evaluation [...] Single point cane Prior Function Level of [place] Independent functional transfers;Independent with ambulation (Mod I [...] Time Calculation Start Time 0859 Stop Time 928 Time Calculation (min) 30 min Multi-Disciplinary Problems [...] lesion type, unspecifiedwhether angina present, unspecified whether standing rock or transplanted heart CT ICU Daily Progress [...] moderate MR, 2nd degree av block, asthma, JACQULEINE, pHTN, hepatic steatosis, GERD, hiatal hernia, DM Type II (Hgb A1c7.5), hx of pituitary adenoma, and obesity. Patient with worsening shortness of breath and functional status. Cardiac cath performed 06/19/24 showed multivessel CAD (LAD 70-90%, proximal LCX 75-90%, proximal OM1 70-90%, RCA subtotal occlusion. He was referred to [facility] for surgical management. Hospital course / [...] - trend CBC daily - DVT prophylaxis: SQ ID: Lab Results Component Value Date WBC [...] plan with the ICU team and other medical/programmer analyst consultant staff, making frequent assessments and decisions [...] at 07/30/2024 12:45 PM CDT * Mala Pineda, ASSET COORDINATOR - 07/25/2024 6:40 PM CDTAssociated Order(s): Critical Care Post-Procedure Diagnose(s): Coronary artery disease, unspecified vessel or lesion type, unspecifiedwhether angina present, unspecified whether standing rock or transplanted heart ICU Daily Progress Shifts: [...] sternal plating. Overnight changed to Epi from SOAKER SODA WORKER. 07/25: Inhaled Veletri added for worsening RV [...] : castro with clear yellow urine Skin: [place], warm, dry, midline sternal incision covered w/ [...] and sternal plating. Post CPB EMILE on SOAKER SODA WORKER 5 w/ mildly improved LV function (from [...] plan with the ICU team and other medical/programmer analyst consultant staff, making frequent assessments and decisions [...] lesion type, unspecifiedwhether angina present, unspecified whether standing rock or transplanted heart CT ICU Daily Progress [...] RCA subtotal occlusion. He was referred to [facility] for surgical management. Hospital course / [...] plan with the ICU team and other medical/programmer analyst consultant staff, making frequent assessments and decisions [...] nitroglycerin, 10 mcg/min, Last Rate: 10 mcg/min (07/24/24 1800) norepinephrine, 0-2 mcg/kg/min, Last Rate: 0.1 mcg/kg/min (07/24/24 184) sodium chloride 0.9%, 3-12 mL/hr sodium chloride 0.9%, 3-12 mL/hr, Last Rate: 9 mL/hr (07/24/24 1800) Vitals: Temp: [36 ??C (96.8 ??F)] 36 [...] : castro with clear yellow urine Skin: [place], warm, dry, midline sternal incision covered w/ [...] and sternal plating. Post CPB EMILE on SOAKER SODA WORKER 5 w/ mildly improved LV function (from 40-50% pre CPB), mild RV dysfunction. Currently supported w/ SOAKER SODA WORKER 5, NE 0.08. CI 2.27-2.3, PAS ~40% systemic, CVP 15. Lactate 2.3. - continue SOAKER SODA WORKER 5 - continue NTG 10 mcg/min due [...] POD #1 to eval & treat Updates: 0: Patient still requiring NE 0.16 and vasopressin [...] plan with the ICU team and other medical/programmer analyst consultant staff, making frequent assessments and decisions [...] INSERT/REPLACE IMPLANTABLE CARDIOVERTER-DEFIBRILLATOR (ICD) DUAL CHAMBER SYSTEM 17683 INSERT LV LEAD W PACEMAKER (PPM) OR IMPLANTABLE CARDIOVERTER-DEFIBRILLATOR (ICD) PLACEMENT (+) 29366 Source Note - Leonor Duncan MD - [...] Recent Labs Lab Units 07/31/24 0422 07/30/24 23307/30/24 0748 PH ART 7.44 7.44 7.46* PCO2 [...] will continue to follow. Leonor Duncan MD Impregnating Helper 3:38 PM 07/31/24 Cosigned by Blu Peacock [...] RCA subtotal occlusion. He was referred to [facility] for surgical management. On 07/24, patient [...] supported on levophed at 0.08 mcg/kg/min and SOAKER SODA WORKER at 5 mcg/kg/min. He remains on nitroglycerin [...] wean for full exam Cardiac: levo 0.08, SOAKER SODA WORKER 5, nitro 10; paced via AV wires 90 Pulmonary: mechanical ventilation, mCT x2, pCT x2. Midline sternotomy with dressing in place, [place] holding suction. Abdominal: round, non-distended Extremities: BLE edema R > L, venous stasis changes to BLE, palpable pulses Drains: Castro, mCT x 2, pCT x 2, castro Wounds: see RN flowsheet Access: BILLY KO + neno, right radial art line Lab/Radiology/Diagnostic Review: Laboratory review: Lab results in the last 12 hours: Recent Results (from the past 12 hour(s)) Prepare RBC: 4 Units Collection Time: 07/24/24 6:36 AM Result Value Ref Range Product code C6072E31 Unit Number [id number] Product Blood Type OPOS Dispense Status ISSUED Product code J4231H74 Unit Number [id number] Product Blood Type OPOS Dispense Status RETURNED Product code U0027Y90 Unit Number [id number] Product Blood Type OPOS Dispense Status RETURNED Product code Q1008Z88 Unit Number [id number] Product Blood Type OPOS Dispense Status RETURNED [...] PM Result Value Ref Range Product code D5692U14 Unit Number [id number] Product Blood Type BPOS Dispense Status ISSUED [...] PM Result Value Ref Range Product code V2263B10 Unit Number [id number] Product Blood Type OPOS Dispense Status ISSUED [...] 0.01 K/cumm Oxyhemoglobin, pulmonary artery Collection Time: 09/16/24 4:24 PM Result Value Ref Range Oxyhemoglobin, [...] levophed for MAP > 80 - continue SOAKER SODA WORKER for CI 2.2-4 L/min/m2 - continue nitroglycerin [...] ICU HDSSI RENAL: No results found for: [id number] , HE6WJAK , CREATININE - Castro in place for [...] plan with the ICU team and other medical/programmer analyst consultant staff, making frequent assessments and decisions [...] VEIN Patient well known to me from [facility]. CABGx3, BURGESS, left radial, saphenous vein. Moderate EF (40%). Dereje's test good by exam and with the pulse oximeter. Plating because he walks with a cane. Leonor Quan MD Source Note - Shantal Sánchez, ASSET COORDINATOR - 07/14/2024 10:53 AM CDT Images from the original note were not included. [facility] Preoperative Assessment and Planning Preoperative Evaluation Record Evaluation type/location: CPAP [facility] Planned procedure site: [facility] (Pods 2/3/5/NUT GRADER) Date: 07/14/24 Anesthesia Evaluation Abiel Fink is [...] degree AV block and RBBB. Pertinent negatives: [place] ; CABG ; systolic/diastolic dysfunction w/o CHF [...] CBC and PT/INR in 06/2024 at the [facility] without acute concern. H/H 13.3/1.2, PLT 107 (chronic), and PT/INR 13.3/1.2. Prior aPTT unavailable. D/w patient who [facility], aP[facility], CBC. Fax sent to PCP (Dr. Retana) to request entering labs at the [facility]. Will notify the surgery team if aPTT [...] Follow up note 07/20/24 Labs at the [facility] (in CE - overview documents summary): WBC: [...] understanding [] Patient unable to respond Abiel Eliseo Fink tolerated procedure well. Cosigned by Leonor Quan MD at 08/06/2024 8:13 AM CDT * Leonor Quan MD - 07/31/2024 12:52 PM CDTAssociated Order(s): Pulmonary Artery Catheter Removal Post-Procedure Diagnose(s): Other mechanical complication of infusion catheter, initial encounter (HCC) Pulmonary Artery Catheter Removal Date/Time: 07/31/2024 12:53 PM Performed by: Leonor Quan MD Authorized by: Leonor Quan MD [place] Protocol: RN Notified of Procedure: yes Informed consent: Risks, benefits, alternatives discussed and patient/manufacturers service representative/guardian agrees and accepts Patient's stated name/ [...] pulmonary artery catheter at bedside using the Barrow technique (Intensive Care Medicine, 1996). The patient [...] but eventually it pulled out intact. A wyceio-lr-auttb 2-0 Prolene suture was used to close the tract.There was no bleeding. Patient tolerance: Patient tolerated the procedure well with no immediate complications Post Procedure Debrief: All guidewires, needles, sponges or other items are accounted for: yes Any special post procedure monitoring, testing or other considerations: n/a All specimens identified, labeled and matched to patient identification: n/a Responsible libertarian for transporting specimen(s) to lab determined: n/a I was present for the entire procedure. Leonor Quan MD * Erin Zaragoza, TEST CLERK - 07/31/2024 8:56 AM CDTAssociated Order(s): TEST CLERK EVALUATE AND TREAT Speech-Language Pathology: Clinical Bedside Swallow HPI/PMH 74 y.o. yo male w/ PMHx of HTN, HLD, CAD, moderate MR, 2nd degree av block, asthma, JACQUELINE, pHTN, hepatic steatosis, GERD, hiatal hernia, DM Type II (Hgb A1c7.5), hx of pituitary adenoma, and obesity. Patient with worsening shortness of breath and functional status. He was referred to [facility] for surgicalmanagement. 07/24: CABG x 3 [...] 2 and bilateral chest tubes. Changed from SOAKER SODA WORKER to Epi. 07/25: Inhaled Veletri added for [...] Self feeding. Current Diet Order: NPO pending TEST CLERK re-evaluation General Information Abiel Fink 07/31/24 General [...] Clinical Impression/Additional Information: Per comparison with initial TEST CLERK evaluation noteyesterday, pt's mental status significantly improved [...] MASA score improved from 140/200 yesterday. Plan TEST CLERK Frequency of Services during current admission: Discharge from this Service TEST CLERK Recommendation (Add'l Services): No further TEST CLERK indicated Next Visit Plan: No further TEST CLERK visits planned in acute care; please re-refer if additional dysphagia concerns arise. Please reference care plan for treatment goals, if indicated. Discharge Summary Statement If this is the last swallow therapy visit, this serves as the discharge summary. * Eloies Howe, BALWINDER - 07/30/2024 2:12 PM CDT Speech-Language Pathology: Clinical Bedside Swallow HPI/PMH 74 y.o. yo male w/ PMHx of HTN, HLD, CAD, moderate MR, 2nd degree av block, asthma, JACQUELINE, pHTN, hepatic steatosis, GERD, hiatal hernia, DM Type II (Hgb A1c7.5), hx of pituitary adenoma, and obesity. Patient with worsening shortness of breath and functional status. He was referred to [facility] for surgicalmanagement. 07/24: CABG x 3 [...] 2 and bilateral chest tubes. Changed from SOAKER SODA WORKER to Epi. 07/25: Inhaled Veletri added for [...] regular/regular, per pt report General Information Abiel Fink 07/30/24 General Observations: Pt seated upright in the chair, difficult to rouse but adequate LAURA for PO trials as session progressed. RN agreeable to PO trials, reported cough x1 with meds this AM but able to take multiple meds with no further overt s/s. Pt inconsistently followed commands for oral mechanism exam (did not benefit from TEST CLERK cueing), minimal verbalizations. Pain Score: 0 - [...] gag (DNT) Palate: No spread or elevation (MRAYAN) Cough Reflex: No deficit noted Voluntary Cough: Attempt, inadequate Voice: Mild impairment/slight huskiness Trach: No trach Oral Preparation: No deficits noted Bolus Clearance: Fully cleared Oral Transit: Delay > 1 second Delay consistency: Thin liquids, Purees Pharyngeal Phase: Immediate laryngeal elevation Pharyngeal Response: Cough before, during, or after swallow MASA Score: 144 Dysphagia: Moderate dysphagia (139-167) Aspiration Risk: Moderate aspiration risk (141-148) Plan TEST CLERK Frequency of Services during current admission: Pending re-evaluation TEST CLERK Recommendation (Add'l Services): Defer at this time [...] will continue to follow. Leonor Duncan MD Impregnating Helper 3:38 PM 07/31/24 Cosigned by Blu Peacock [...] 70 minutes which was spent performing a [id number]-mj-mrzj encounter and personally completing the provider-level activities [...] CABG x3 and Sternal Plating (08/03). 07/31: TEST CLERK eval regular texture and thin liquids, order [...] CREATININE mg/dL 1.20 < > 1.39* 1.23 [id number] mL/min/1.73 m2 64 < > 54* 62 [...] of Weight Used for Estimated Protein : [place] Total Fluid Estimated Needs: 1882.5 Fluid Needs Based on : 25 ml/kg Type of Weight Used for Estimated Fluid Needs: [place] Dietary Orders (From admission, onward) Start Ordered 07/31/24 1317 Oral Nutrition Supplements ([facility]) Select Supplement: Glucerna Shake - Chocolate, VARY/multiple Flavor With Breakfast and Dinner Question Answer Comment ([facility]) Select Supplement: Glucerna Shake - Chocolate ([facility]) Select Supplement: VARY/multiple Flavor 07/31/24 1316 07/31/24 1046 Adult Diet Restricted; Mechanical Soft; Regular Liquid Diet effective now Question Answer Comment ([facility]) Diet type Restricted Modified Consistency: Mechanical [...] function, Weight changes Toy Whaley MS, RD, [facility], N [phone] Bracelet Form Coverer-Weekend: [phone] documented in this encounter Nursing Notes * Nedra Ray RN - 08/11/2024 12:22 PM CDT Report called to Mag at the [facility]. Patients PIVs removed. Discharge packet and education [...] 4:05 PM CDT This patient arrives to 8205 intubated/sedated accompanied by OR and Anesthesia staff. [...] management, remain free from falls and injury Senior Solutions Architect Patient Centered Goal for Treatment: snf vs [...] management, remain free from falls and injury Half-Way Patient Centered Goal for Treatment: snf vs [...] management, remain free from falls and injury Senior Solutions Architect Patient Centered Goal for Treatment: snf vs rehab Summary: VSS, I&Os monitored, pain management plan followed, pt remained free from falls and injury * Plan of Laure - Phoebe Tinoco RN - 08/10/2024 3:13 [...] d/c. ADD: 08/14/24 Discharge Barriers: Pt is [facility] and [facility] [...] Patient and/or family are agreeable with plan. strategic manager will continue to follow and assist with discharge planning as needed. If any further discharge needs arise, please contact the covering case preparer and liner. * Plan of Care - Arabella Mancini [...] monitor labs, IOs, promote comfort and safety Half-Way Patient Centered Goal for Treatment: snf vs [...] monitor labs, IOs, promote comfort and safety Half-Way Patient Centered Goal for Treatment: snf vs rehab Summary: Vss, monitor labs, monitor vitals, promote safety * Plan of Care - Viry Tabor RN - 08/08/2024 12:18 PM CDT HOMA spoke with Jennifer at [facility]. She will present the patient's clinical information to the doctors at [facility]. Does not anticipate a bed until next [...] patients goal, OOBTC for meals, accurate I&Os Half-Way Patient Centered Goal for Treatment: snf vs rehab Summary: VSS, pain well controlled, OOB x3 today, monitor I&o * Plan of Care - Viry Tabor RN - 08/07/2024 11:49 AM CDT 07/25/24 0931 Discharge Planning Support System Children Anticipated discharge level of care Acute Rehab ([facility]) Does the patient need discharge transport arranged? [...] bed availability at [facility]. Education Needs Identified (plan): MD referral form for IPR completed and faxed to [phone] along with supporting clinical documentation. F/U Appointments: per facility. Patient's Identified Problem/Goal Problem:?Ensure acute medical needs are met and that patient has a safe discharge plan. Goal:?Secure a discharge plan that patient/family are agreeable with?and ensure patient has continuum of care. Patient and/or family are agreeable with plan. strategic manager will continue to follow and assist with discharge planning as needed. If any further discharge needs arise, please contact the covering case preparer and liner. * Plan of Care - Kasia Arechiga [...] patients goal, OOBTC for meals, accurate I&Os Senior Solutions Architect Patient Centered Goal for Treatment: snf vs rehab Summary: patient is increasing in activity tolerance. Labs and vital signs monitored. * Plan of Laure - Delaney Leanna - 08/06/2024 4:34 PM CDT Goals: Clinical Goals for the Shift: VSS, pain managed per patients goal, OOBTC for meals, accurate I&Os Senior Solutions Architect Patient Centered Goal for Treatment: snf vs [...] DM2 (diabetes mellitus, type 2) ([facility]) - Home regimen: Lantus 90 units - [...] skin breakdown, free from falls or injury Senior Solutions Architect Patient Centered Goal for Treatment: snf vs [...] skin breakdown, free from falls or injury Half-Way Patient Centered Goal for Treatment: snf vs [...] for pain. Notify the physician office at [phone] immediately if you develop abrupt pain or swelling. If you feel there is an urgent matter, call 911 or go to the emergency room. Call the office at [phone] with any routine questions or concerns. If you are unable to reach your doctor please call [facility] information technology internship at [phone]. He or she will contact the physician on the Electrophysiology service to assist you. Patient verbalized understanding and will follow-up with EP as scheduled. Reina Ellis MD Fellow Physician, Electrophysiology Cardiovascular Division, [facility] 08/05/2024, 7:12 AM Cosigned by Lucy Meyer [...] RCA subtotal occlusion. He was referred to [facility] for surgical management. Mr. Fink was [...] EP lab on 08/04/24 for PPMimplantation ([employer] EMERGENCY DEPARTMENT MANAGER-D with EP (DDD [id number]). Post pacemaker implantation, [...] for pain. Notify the physician office at [phone] immediately if you develop abrupt pain or swelling. If you feel there is an urgent matter, call 911 or go to the emergency room. Call the office at [phone] with any routine questions or concerns. If you are unable to reach your doctor please call [facility] information technology internship at [phone]. He or she will contact the physician [...] status post implantation of L sided [employer] EMERGENCY DEPARTMENT MANAGER-D for AVB and primary prevention with Dr. [...] or first thing tomorrow morning. Plan for EMERGENCY DEPARTMENT MANAGER-P pending repeat limited echo. Please make patient [...] CHB and LVEF 26%, discussed with patient EMERGENCY DEPARTMENT MANAGER-P vs EMERGENCY DEPARTMENT MANAGER-D given ICM with LVEF less than 35%, patient agreed to proceed with EMERGENCY DEPARTMENT MANAGER-D. * Plan of Care - Yue Estrada [...] mg, oral, Daily, 15 mg at 08/01/24 0937 Lactated Ringer's (LR) infusion, 10 mL/hr, intravenous, [...] Lab/Radiology/Diagnostic Review: Labs: Recent Labs Lab Units 07/31/24231507/30/24233807/30/24 0101 07/29/24 0031 07/28/24 0003 HEMOGLOBIN g/dL [...] will continue to follow. Leonor Duncan MD Impregnating Helper 4:20 PM 08/01/24 Cosigned by Blu Peacock [...] 15 minutes which was spent performing a [id number]-jd-[id number] encounter and personally completing the provider-level activities [...] Admission Source: home Impression: CAD Plan Includes: strategic manager will monitor for post acute discharge needs such as therapy, nursing, medical equipment or agency referrals as indicated by the care team. Primary Source of Transportation: Does the patient need discharge transport arranged?: No (07/25/24930) Health Insurance Coverage: MD as primary also has Medicare A Prescription Coverage: yes MD Pharmacy: Alverto Gutierrez [facility] - Fax or Paper Script Only - send e-rx to [facility] [address] [place] [id number] [facility] [address] IN [place], [place] - [address] [facility] [address] [facility] [id number] Primary Care Provider: Juan Retana MD Prior [...] (na) Facility contact name and number:: Jeremy [phone] Steps in home?: Yes, Outside of home, Yes, Inside home Number of steps inside: 10 steps Number of steps outside: 2 steps Medication management: Independent (07/25/24 0502) Potential discharge needs include: Home Health: Physical therapy, Occupational therapy, MCFP (07/25/24930) OP Services: no Dialysis: no Behavioral [...] Collaboration with Patient, Provider, Direct Care Nurse, Overhead Line Worker, and other members of theHealth Care Team to assure needed interventions completed. 2. Return patient to optimal level of self-care post discharge. 3. Certified Composites Technician will follow for Discharge Planning - [...] - Fellow ANESTHESIOLOGIST: Anesthesiologist: Cristina Phipps MD Investigator Operator: Pito Loya MD Pen Maker: Saud Lange CCP; Bonnie Pagan CCP PREOPERATIVE [...] excellent. The anastomosis was performed in an [id number] using a running 7-0 Prolene. The aorta [...] with antibiotic solution and closed using absorbable schmidt tures in layers. A sterile dressing was [...] PM CDT POCT GLUCOSE DEVICE Routine 08/03/2024 8:28 PM CDT PEP THERAPY Routine 08/03/2024 6:00 [...] type, unspecified whether angina present, unspecified whether standing rock or transplanted heart POTASSIUM, WHOLE BLOOD STAT [...] type, unspecified whether angina present, unspecified whether standing rock or transplanted heart POTASSIUM, WHOLE BLOOD STAT [...] type, unspecified whether angina present, unspecified whether standing rock or transplanted heart XR CHEST 1 VIEW IP Routine 07/31/2024 6:00 PM CDT POTASSIUM, WHOLE BLOOD STAT 4 4:59 PM CDT POCT GLUCOSE DEVICE Routine 07/31/2024 4 :57 PM CDT GENERAL Routine 07/31/2024 12:53 PM CDT Other mechanical complication of infusion catheter, initial encounter (HCC) POTASSIUM, WHOLE BLOOD STAT 4 11:24 AM CDT POCT GLUCOSE DEVICE Routine 07/31/2024 11:24 AM CDT TEST CLERK EVALUATE AND TREAT Routine 8:56 AM CDT POCT GLUCOSE DEVICE Routine 07/31/2024 7 :38 AM CDT CRITICAL CARE Routine 07/31/2024 6:00 AM CDT Coronary artery disease, unspecified vessel or lesion type, unspecified whether angina present, unspecified whether standing rock or transplanted heart OXYHEMOGLOBIN, PULMONARY ARTERY STAT 07/31/2024 4:22 AM CDT HEMOGLOBIN TOTAL, PULMONARY ARTERY STAT 07/31/2024 4:22 AM CDT POTASSIUM, WHOLE BLOOD STAT 4:22 AM CDT BLOOD GAS, ARTERIAL STAT [...] type, unspecified whether angina present, unspecified whether standing rock or transplanted heart XR CHEST 1 VIEW [...] type, unspecified whether angina present, unspecified whether standing rock or transplanted heart OXYHEMOGLOBIN, PULMONARY ARTERY STAT [...] type, unspecified whether angina present, unspecified whether standing rock or transplanted heart POCT GLUCOSE DEVICE Routine [...] type, unspecified whether angina present, unspecified whether standing rock or transplanted heart OXYHEMOGLOBIN, PULMONARY ARTERY STAT [...] type, unspecified whether angina present, unspecified whether standing rock or transplanted heart POCT GLUCOSE DEVICE Routine [...] type, unspecified whether angina present, unspecified whether standing rock or transplanted heart POTASSIUM, WHOLE BLOOD Timed [...] type, unspecified whether angina present, unspecified whether standing rock or transplanted heart POCT GLUCOSE DEVICE Routine [...] type, unspecified whether angina present, unspecified whether standing rock or transplanted heart POCT GLUCOSE DEVICE Routine 07/27/2024 6 :57 AM CDT POCT GLUCOSE DEVICE Routine 07/27/2024 6 :13 AM CDT HEMOGLOBIN TOTAL, CENTRAL VENOUS STAT 07/27/2024 3:58 AM CDT OXYHEMOGLOBIN, CENTRAL VENOUS STAT 07/27/2024 3:58 AM CDT POTASSIUM, WHOLE BLOOD Timed 3:58 AM CDT BLOOD GAS, ARTERIAL STAT [...] type, unspecified whether angina present, unspecified whether standing rock or transplanted heart POCT GLUCOSE DEVICE Routine [...] type, unspecified whether angina present, unspecified whether standing rock or transplanted heart POCT GLUCOSE DEVICE Routine [...] type, unspecified whether angina present, unspecified whether standing rock or transplanted heart POCT GLUCOSE DEVICE Routine [...] type, unspecified whether angina present, unspecified whether standing rock or transplanted heart POCT GLUCOSE DEVICE Routine [...] * POCT glucose (08/11/2024 8:10 AM CDT) [facility] Signature Glucose, POC 100 70 - 199 mg/dL Blood 08/11/2024 8:10 AM CDT 08/11/2024 8:10 AM CDT us Leonor Quan MD LAB POCT ORDERABLES - D EVICE Final Result Performing Organization Address [facility] Phone Number CERNER BJ [facility] Department [place] [address] * eGFR (08/10/2024 10:33 PM CDT) eGFR [...] Humphrey NP LAB BLOOD ORDERABLES Final Result [facility] [place] [address] * (ABNORMAL) CBC without differential (08/10/2024 10:33 PM CDT) [facility] WBC 5.9 3.8 - 9.9 K/cumm Hgb 8.4(L) 13.0 - 17.5 g/dL [facility] Hct 26.9(L) 38.9 - 50.3 % [facility] Plt 187 150 - 400 K/cumm [facility] MPV 8.8(L) 9.1 - 12.3 fL [facility] RBC 3.32(L) 4.30 - 5.80 M/cumm [facility] MCV 81.0(L) 81.3 - 96.4 fL [facility] MCH 25.3(L) 27.1 - 33.3 pg [facility] MCHC 31.2(L) 32.3 - 35.7 g/dL [facility] RDW CV 16.3(H) 11.1 - 14.9 % [facility] RDW SD 47.8 35.7 - 48.1 fL [facility] NRBC abs 0.00 0.00 - 0.01 K/cumm [facility] Blood 08/10/2024 10:3 3 PM CDT 08/10/2024 11:10 PM CDT Kathrin Humphrey NP LAB BLOOD ORDERABLES Final Result [facility] [place] [address] * (ABNORMAL) Basic metabolic panel (08/10/2024 10:33 PM CDT) [facility] Sodium 135 135 - 145 mmol/L Potassium, pl 4.6 3.3 - 4.9 mmol/L [facility] Chloride 100 97 - 110 mmol/L [facility] CO2 24 22 - 32 mmol/L [facility] Anion gap 11 2 - 15 mmol/L [facility] BUN 19 6 - 25 mg/dL [facility] Creatinine 0.83 0.80 - 1.30 mg/dL [facility] Glucose 97 70 - 199 mg/dL [facility] Comment: Interpretive Data Fasting glucose >/= 126 [...] 2022. Calcium 8.4(L) 8.5 - 10.3 mg/dL [facility] Blood 08/10/2024 10:3 3 PM CDT 08/10/2024 11:09 PM CDT Kathrin Humphrey ASSET COORDINATOR LAB BLOOD ORDERABLES Final Result Performing Organization Address City/[facility]/ZIP Co de Phone Number [facility] [place] [address] * Magnesium (08/10/2024 10:33 PM CDT) Magnesium 2.2 1.4 - 2.5 mg/dL Blood 08/10/2024 10:3 3 PM CDT 08/10/2024 11:09 PM CDT Kathrin Humphrey ASSET COORDINATOR LAB BLOOD ORDERABLES Final Result [facility] [place] [address] * POCT glucose (08/10/2024 8:03 PM CDT) Glucose, POC 105 70 - 199 mg/dL Blood 08/10/2024 8:03 PM CDT 08/10/2024 8:03 PM CDT Leonor Quan MD LAB POCT ORDERABLES - D EVICE Final Result Performing Organization Address [facility] Co de Phone Number [facility] [place] [address] * POCT glucose (08/10/2024 4:57 PM CDT) Glucose, POC 108 70 - 199 mg/dL Blood 08/10/2024 4:57 PM CDT 08/10/2024 4:57 PM CDT Leonor Quan MD LAB POCT ORDERABLES - D EVICE Final Result Performing Organization Address [facility] Co de Phone Number [facility] [place] [address] * POCT glucose (08/10/2024 12:04 PM CDT) Glucose, POC 105 70 - 199 mg/dL Blood 08/10/2024 12:0 4 PM CDT 08/10/2024 12:04 PM CDT Leonor Quan MD LAB POCT ORDERABLES - D EVICE Final Result Performing Organization Address [facility] Co de Phone Number [facility] [place] [address] * POCT glucose (08/10/2024 10:04 AM CDT) Glucose, POC 99 70 - 199 mg/dL Blood 08/10/2024 10:0 4 AM CDT 08/10/2024 10:04 AM CDT Leonor Quan MD LAB POCT ORDERABLES - D EVICE Final Result GILLIAN LYNN [facility] Department [place] [address] * POCT glucose (08/10/2024 8:13 AM CDT) Glucose, POC 73 70 - 199 mg/dL Blood 08/10/2024 8:13 AM CDT 08/10/2024 8:13 AM CDT us Leonor Quan MD LAB POCT ORDERABLES - D EVICE Final Result Performing Organization Address [facility] de Phone Number GILLIAN LYNN [facility] Department [place] [address] * eGFR (08/09/2024 9:51 PM CDT) Pathologist [facility] eGFR 90 >=60 mL/min/1. 73 m2 Comment: [...] CDT 08/09/2024 10:19 PM CDT Kathrin Humphrey ASSET COORDINATOR LAB BLOOD ORDERABLES Final Result Performing Organization Address [facility] de Phone Number [facility] [place] [address] * (ABNORMAL) CBC without differential (08/09/2024 9:51 PM CDT) WBC 6.5 3.8 - 9.9 K/cumm Hgb 8.5(L) 13.0 - 17.5 g/dL [facility] Hct 27.7(L) 38.9 - 50.3 % [facility] Plt 207 150 - 400 K/cumm [facility] MPV 8.7(L) 9.1 - 12.3 fL [facility] RBC 3.45(L) 4.30 - 5.80 M/cumm [facility] MCV 80.3(L) 81.3 - 96.4 fL [facility] MCH 24.6(L) 27.1 - 33.3 pg [facility] MCHC 30.7(L) 32.3 - 35.7 g/dL [facility] RDW CV 16.2(H) 11.1 - 14.9 % [facility] RDW SD 46.4 35.7 - 48.1 fL [facility] NRBC abs 0.00 0.00 - 0.01 K/cumm [facility] Blood 08/09/2024 9:51 PM CDT 08/09/2024 10:22 PM CDT Kathrin Humphrey ASSET COORDINATOR LAB BLOOD ORDERABLES Final Result Performing Organization Address [facility] Co de Phone Number [facility] [place] [address] * (ABNORMAL) Basic metabolic panel (08/09/2024 9:51 PM CDT) Sodium 135 135 - 145 mmol/L Potassium, pl 4.3 3.3 - 4.9 mmol/L [facility] Chloride 101 97 - 110 mmol/L [facility] CO2 24 22 - 32 mmol/L [facility] Anion gap 10 2 - 15 mmol/L [facility] BUN 23 6 - 25 mg/dL [facility] Creatinine 0.91 0.80 - 1.30 mg/dL [facility] Glucose 86 70 - 199 mg/dL [facility] Comment: Interpretive Data Fasting glucose >/= 126 [...] 2022. Calcium 8.3(L) 8.5 - 10.3 mg/dL [facility] Blood 08/09/2024 9:51 PM CDT 08/09/2024 10:19 PM CDT Kathrin Humphrey ASSET COORDINATOR LAB BLOOD ORDERABLES Final Result Performing Organization Address City/[facility]/ZIP Co de Phone Number [facility] Department [place] [address] * Magnesium (08/09/2024 9:51 PM CDT) Pathologist [facility] Magnesium 2.1 1.4 - 2.5 mg/dL Blood 08/09/2024 9:51 PM CDT 08/09/2024 10:19 PM CDT Kathrin Humphrey ASSET COORDINATOR LAB BLOOD ORDERABLES Final Result Performing Organization Address [facility]/State/ZIP Co de [place] [address] * POCT glucose (08/09/2024 9:33 PM CDT) Glucose, POC 97 70 - 199 mg/dL Blood 08/09/2024 9:33 PM CDT 08/09/2024 9:33 PM CDT Leonor Quan MD LAB POCT ORDERABLES - [place] [address] * POCT glucose (08/09/2024 4:09 PM CDT) Glucose, POC 94 70 - 199 mg/dL Blood 08/09/2024 4:09 PM CDT 08/09/2024 4:09 PM CDT Leonor Quan MD LAB POCT ORDERABLES - D EVICE Final Result Performing Organization Address City/[facility]/[place] [address] * POCT glucose (08/09/2024 12:48 PM CDT) Glucose, POC 134 70 - 199 mg/dL Blood 08/09/2024 12:4 8 PM CDT 08/09/2024 12:48 PM CDT Leonor Quan MD LAB POCT ORDERABLES - [place] [address] * POCT glucose (08/09/2024 10:47 AM CDT) Glucose, POC 124 70 - 199 mg/dL Blood 08/09/2024 10:4 7 AM CDT 08/09/2024 10:47 AM CDT Leonor Quan MD LAB POCT ORDERABLES - D EVICE Final Result Performing Organization Address [facility] de Phone Number GILLIAN [facility] [place] [address] * POCT glucose (08/09/2024 8:13 AM CDT) Glucose, POC 101 70 - 199 mg/dL Blood 08/09/2024 8:13 AM CDT 08/09/2024 8:13 AM CDT Leonor Quan MD LAB POCT ORDERABLES - D EVICE Final Result Performing Organization Address [facility] de Phone Number GILLIAN [facility] [place] [address] * eGFR (08/08/2024 10:02 PM CDT) eGFR [...] CDT 08/08/2024 10:47 PM CDT Kathrin Humphrey ASSET COORDINATOR LAB BLOOD ORDERABLES Final Result Performing Organization Address [facility] Co de Phone Number [facility] Department [place] [address] * Type and screen (08/08/2024 10:02 PM CDT) Pathologist [facility] Janell, indirect Negative ABO Rh O Positive [facility] Blood 08/08/2024 10:0 2 PM CDT 08/08/2024 11:00 PM CDT Narrative [facility] - 08/08/2024 11:52 PM CDT Has the patient had Daratumumab or Isatuximab in the past 6 months?->Unknown Kathrin Humphrey ASSET COORDINATOR LAB BLOOD BANK TEST ORDERA BLES Final Result Performing Organization Address [facility] Co de Phone Number [facility] Department [place] [address] * (ABNORMAL) CBC without differential (08/08/2024 10:02 PM CDT) WBC 8.0 3.8 - 9.9 K/cumm Hgb 8.4(L) 13.0 - 17.5 g/dL [facility] Hct 26.8(L) 38.9 - 50.3 % [facility] Plt 206 150 - 400 K/cumm [facility] MPV 9.0(L) 9.1 - 12.3 fL [facility] RBC 3.34(L) 4.30 - 5.80 M/cumm [facility] MCV 80.2(L) 81.3 - 96.4 fL [facility] MCH 25.1(L) 27.1 - 33.3 pg [facility] MCHC 31.3(L) 32.3 - 35.7 g/dL [facility] RDW CV 15.9(H) 11.1 - 14.9 % [facility] RDW SD 45.8 35.7 - 48.1 fL [facility] NRBC abs 0.00 0.00 - 0.01 K/cumm [facility] Blood 08/08/2024 10:0 2 PM CDT 08/08/2024 10:47 PM CDT us Kathrin Humphrey NP LAB BLOOD ORDERABLES Final Result [facility] Department [place] [address] * (ABNORMAL) Basic metabolic panel (08/08/2024 10:02 PM CDT) Sodium 133(L) 135 - 145 mmol/L Potassium, pl 3.5 3.3 - 4.9 mmol/L [facility] Chloride 99 97 - 110 mmol/L [facility] CO2 24 22 - 32 mmol/L [facility] Anion gap 10 2 - 15 mmol/L [facility] BUN 26(H) 6 - 25 mg/dL [facility] Creatinine 0.97 0.80 - 1.30 mg/dL [facility] Glucose 138 70 - 199 mg/dL [facility] Comment: Interpretive Data Fasting glucose >/= 126 [...] 2022. Calcium 8.0(L) 8.5 - 10.3 mg/dL [facility] Blood 08/08/2024 10:0 2 PM CDT 08/08/2024 10:47 PM CDT Kathrin Humphrey ASSET COORDINATOR LAB BLOOD ORDERABLES Final Result Performing Organization Address City/[facility] Co de Phone Number [facility] [place] [address] * Magnesium (08/08/2024 10:02 PM CDT) Magnesium 1.8 1.4 - 2.5 mg/dL Blood 08/08/2024 10:0 2 PM CDT 08/08/2024 10:47 PM CDT Kathrin Humphrey ASSET COORDINATOR LAB BLOOD ORDERABLES Final Result Performing Organization Address [facility] Co de Phone Number [facility] [place] [address] * POCT glucose (08/08/2024 7:07 PM CDT) Glucose, POC 139 70 - 199 mg/dL Blood 08/08/2024 7:07 PM CDT 08/08/2024 7:07 PM CDT Leonor Quan MD LAB POCT ORDERABLES - D EVICE Final Result Performing Organization Address City/[facility] Co de Phone Number [facility] [place] [address] * POCT glucose (08/08/2024 5:32 PM CDT) Glucose, POC 113 70 - 199 mg/dL Blood 08/08/2024 5:32 PM CDT 08/08/2024 5:32 PM CDT Leonor Quan MD LAB POCT ORDERABLES - D EVICE Final Result Performing Organization Address [facility] de Phone Number GILLIAN [facility] [place] [address] * POCT glucose (08/08/2024 11:27 AM CDT) Glucose, POC 166 70 - 199 mg/dL Blood 08/08/2024 11:2 7 AM CDT 08/08/2024 11:27 AM CDT Leonor Quan MD LAB POCT ORDERABLES - D EVICE Final Result Performing Organization Address [facility] de Phone Number [facility] [place] [address] * POCT glucose (08/08/2024 7:37 AM CDT) Glucose, POC 104 70 - 199 mg/dL Blood 08/08/2024 7:37 AM CDT 08/08/2024 7:37 AM CDT Leonor Quan MD LAB POCT ORDERABLES - D EVICE Final Result Performing Organization Address [facility] de Phone Number GILLIAN [facility] [place] [address] * eGFR (08/07/2024 10:28 PM CDT) eGFR [...] ORDERABLES Fi nal Result Performing Organization Address City/[facility] Co de Phone Number GILLIAN [facility] Department [place] [address] * Phosphorus (08/07/2024 10:28 PM CDT) Phosphorus, pl 2.8 2.3 - 4.5 mg/dL Blood 08/07/2024 10:2 8 PM CDT 08/07/2024 10:46 PM CDT Leonor Quan MD LAB BLOOD ORDERABLES Fi nal Result Performing Organization Address City/[facility]/ZIP Co de Phone Number GILLIAN [facility] [place] [address] * Magnesium (08/07/2024 10:28 PM CDT) Magnesium 1.8 1.4 - 2.5 mg/dL Blood 08/07/2024 10:2 8 PM CDT 08/07/2024 10:46 PM CDT Leonor Quan MD LAB BLOOD ORDERABLES Fi nal Result Performing Organization Address City/[facility]/ZIP Co de Phone Number [facility] [place] [address] * (ABNORMAL) Basic metabolic panel (08/07/2024 10:28 PM CDT) [facility] Sodium 135 135 - 145 mmol/L Potassium, pl 3.4 3.3 - 4.9 mmol/L [facility] Chloride 99 97 - 110 mmol/L [facility] CO2 27 22 - 32 mmol/L [facility] Anion gap 9 2 - 15 mmol/L [facility] BUN 24 6 - 25 mg/dL [facility] Creatinine 1.01 0.80 - 1.30 mg/dL [facility] Glucose 113 70 - 199 mg/dL [facility] Comment: Interpretive Data Fasting glucose >/= 126 [...] 2022. Calcium 8.3(L) 8.5 - 10.3 mg/dL [facility] Blood 08/07/2024 10:2 8 PM CDT 08/07/2024 10:46 PM CDT Leonor Quan MD LAB BLOOD ORDERABLES Fi nal Result Performing Organization Address [facility]/ZIP Co de Phone Number [facility] [place] [address] * (ABNORMAL) CBC without differential (08/07/2024 10:28 PM CDT) [facility] WBC 7.0 3.8 - 9.9 K/cumm Hgb 7.5(L) 13.0 - 17.5 g/dL [facility] Hct 23.7(L) 38.9 - 50.3 % [facility] Plt 197 150 - 400 K/cumm [facility] MPV 8.9(L) 9.1 - 12.3 fL [facility] RBC 2.96(L) 4.30 - 5.80 M/cumm [facility] MCV 80.1(L) 81.3 - 96.4 fL [facility] MCH 25.3(L) 27.1 - 33.3 pg [facility] MCHC 31.6(L) 32.3 - 35.7 g/dL [facility] RDW CV 16.0(H) 11.1 - 14.9 % [facility] RDW SD 46.5 35.7 - 48.1 fL [facility] NRBC abs 0.00 0.00 - 0.01 K/cumm [facility] Blood 08/07/2024 10:2 8 PM CDT 08/07/2024 10:46 PM CDT us Leonor Quan MD LAB BLOOD ORDERABLES Fi nal Result Performing Organization Address City/[facility]/ZIP Co de Phone Number [facility] [place] [address] * POCT glucose (08/07/2024 7:23 PM CDT) [facility] Glucose, POC 144 70 - 199 mg/dL Blood 08/07/2024 7:23 PM CDT 08/07/2024 7:23 PM CDT Leonor Quan MD LAB POCT ORDERABLES - D EVICE Final Result Performing Organization Address [facility] Co de Phone Number [facility] [place] [address] * POCT glucose (08/07/2024 4:46 PM CDT) Glucose, POC 147 70 - 199 mg/dL Blood 08/07/2024 4:46 PM CDT 08/07/2024 4:46 PM CDT Leonor Quan MD LAB POCT ORDERABLES - D EVICE Final Result Performing Organization Address City/[facility] [place] [address] * POCT glucose (08/07/2024 11:53 AM CDT) [facility] Signature Glucose, POC 142 70 - 199 mg/dL Blood 08/07/2024 11:5 3 AM CDT 08/07/2024 11:53 AM CDT Leonor Quan MD LAB POCT ORDERABLES - D EVICE Final Result Performing Organization Address City/[facility] Co de Phone Number [facility] [place] [address] * POCT glucose (08/07/2024 7:45 AM CDT) [facility] Signature Glucose, POC 129 70 - 199 mg/dL Blood 08/07/2024 7:45 AM CDT 08/07/2024 7:45 AM CDT Leonor Quan MD LAB POCT ORDERABLES - D EVICE Final Result Performing Organization Address City/[facility] [place] [address] * eGFR (08/06/2024 8:39 PM CDT) eGFR [...] MD LAB BLOOD ORDERABLES Fi nal Result [facility] Department [place] [address] * Phosphorus (08/06/2024 8:39 PM CDT) Pathologist [facility] Phosphorus, pl 3.3 2.3 - 4.5 mg/dL Blood 08/06/2024 8:39 PM CDT 08/06/2024 9:36 PM CDT Leonor Quan MD LAB BLOOD ORDERABLES Fi nal Result [facility] [place] [address] * Magnesium (08/06/2024 8:39 PM CDT) [facility] Magnesium 2.0 1.4 - 2.5 mg/dL Blood 08/06/2024 8:39 PM CDT 08/06/2024 9:36 PM CDT us Leonor Quan MD LAB BLOOD ORDERABLES Fi nal Result Performing Organization Address [facility] Co de Phone Number [facility] [place] [address] * (ABNORMAL) Basic metabolic panel (08/06/2024 8:39 PM CDT) [facility] Sodium 135 135 - 145 mmol/L Potassium, pl 3.3 3.3 - 4.9 mmol/L [facility] Chloride 96(L) 97 - 110 mmol/L [facility] CO2 27 22 - 32 mmol/L [facility] Anion gap 12 2 - 15 mmol/L [facility] BUN 25 6 - 25 mg/dL [facility] Creatinine 1.01 0.80 - 1.30 mg/dL [facility] Glucose 87 70 - 199 mg/dL [facility] Comment: Interpretive Data Fasting glucose >/= 126 [...] 2022. Calcium 8.5 8.5 - 10.3 mg/dL [facility] Blood 08/06/2024 8:39 PM CDT 08/06/2024 9:36 PM CDT Leonor Quan MD LAB BLOOD ORDERABLES Fi nal Result Performing Organization Address [facility]/ZIP Co de Phone Number [facility] Department [place] [address] * (ABNORMAL) CBC without differential (08/06/2024 8:39 PM CDT) [facility] WBC 7.9 3.8 - 9.9 K/cumm Hgb 7.8(L) 13.0 - 17.5 g/dL [facility] Hct 24.4(L) 38.9 - 50.3 % [facility] Plt 214 150 - 400 K/cumm [facility] MPV 9.4 9.1 - 12.3 fL [facility] RBC 3.04(L) 4.30 - 5.80 M/cumm [facility] MCV 80.3(L) 81.3 - 96.4 fL [facility] MCH 25.7(L) 27.1 - 33.3 pg [facility] MCHC 32.0(L) 32.3 - 35.7 g/dL [facility] RDW CV 16.0(H) 11.1 - 14.9 % [facility] RDW SD 46.3 35.7 - 48.1 fL [facility] NRBC abs 0.00 0.00 - 0.01 K/cumm [facility] Blood 08/06/2024 8:39 PM CDT 08/06/2024 9:36 PM CDT Leonor Quan MD LAB BLOOD ORDERABLES Fi nal Result [facility] [place] [address] * POCT glucose (08/06/2024 8:22 PM CDT) [facility] Glucose, POC 101 70 - 199 mg/dL Blood 08/06/2024 8:22 PM CDT 08/06/2024 8:22 PM CDT us Leonor Quan MD LAB POCT ORDERABLES - D EVICE Final Result Performing Organization Address [facility] Co de Phone Number [facility] [place] [address] * POCT glucose (08/06/2024 4:32 PM CDT) Glucose, POC 171 70 - 199 mg/dL Blood 08/06/2024 4:32 PM CDT 08/06/2024 4:32 PM CDT us Leonor Quan MD LAB POCT ORDERABLES - D EVICE Final Result Performing Organization Address [facility] Co de Phone Number [facility] [place] [address] * POCT glucose (08/06/2024 12:15 PM CDT) Glucose, POC 198 70 - 199 mg/dL Blood 08/06/2024 12:1 5 PM CDT 08/06/2024 12:15 PM CDT us Leonor Quan MD LAB POCT ORDERABLES - D EVICE Final Result Performing Organization Address [facility] Co de Phone Number [facility] [place] [address] * Potassium, whole blood (08/06/2024 9:59 AM CDT) Potassium, bld 3.6 3.3 - 4.9 mmol/L Blood 08/06/2024 9:59 AM CDT 08/06/2024 10:08 AM CDT us Va Griffith NP LAB BLOOD ORDERABLES F inal Result GILLIAN ERAZO [facility] Department [place] [address] * POCT glucose (08/06/2024 7:51 AM CDT) Pathologist [facility] Glucose, POC 148 70 - 199 mg/dL Blood 08/06/2024 7:51 AM CDT 08/06/2024 7:51 AM CDT us Leonor Quan MD LAB POCT ORDERABLES - D EVICE Final Result Performing Organization Address [facility] de Phone Number [facility] [place] [address] * eGFR (08/05/2024 9:41 PM CDT) [facility] eGFR 72 >=60 mL/min/1. 73 m2 Comment: [...] ORDERABLES Fi nal Result Performing Organization Address City/[facility] Co de Phone Number [facility] [place] [address] * Type and screen (08/05/2024 9:41 PM CDT) Janell, indirect Negative ABO Rh O Positive [facility] Blood 08/05/2024 9:41 PM CDT 08/05/2024 10:32 PM CDT Narrative [facility] - 08/05/2024 11:35 PM CDT Has the patient had Daratumumab or Isatuximab in the past 6 months?->Unknown Mayi Richardson ASSET COORDINATOR LAB BLOOD BANK T EST ORDERABLES Final Result Performing Organization Address [facility] Co de Phone Number [facility] [place] [address] * Phosphorus (08/05/2024 9:41 PM CDT) Phosphorus, pl 3.6 2.3 - 4.5 mg/dL Blood 08/05/2024 9:41 PM CDT 08/05/2024 10:26 PM CDT Leonor Quan MD LAB BLOOD ORDERABLES Fi nal Result Performing Organization Address City/[facility] [place] [address] * Magnesium (08/05/2024 9:41 PM CDT) Magnesium 2.0 1.4 - 2.5 mg/dL Blood 08/05/2024 9:41 PM CDT 08/05/2024 10:26 PM CDT Leonor Quan MD LAB BLOOD ORDERABLES Fi nal Result Performing Organization Address City/[facility]/ZIP Co de Phone Number [facility] [place] [address] * (ABNORMAL) Basic metabolic panel (08/05/2024 9:41 PM CDT) [facility] Sodium 136 135 - 145 mmol/L Potassium, pl 3.0(L) 3.3 - 4.9 mmol/L [facility] Chloride 99 97 - 110 mmol/L [facility] CO2 28 22 - 32 mmol/L [facility] Anion gap 9 2 - 15 mmol/L [facility] BUN 30(H) 6 - 25 mg/dL [facility] Creatinine 1.09 0.80 - 1.30 mg/dL [facility] Glucose 114 70 - 199 mg/dL [facility] Comment: Interpretive Data Fasting glucose >/= 126 [...] 2022. Calcium 8.5 8.5 - 10.3 mg/dL [facility] Blood 08/05/2024 9:41 PM CDT 08/05/2024 10:26 PM CDT Leonor Quan MD LAB BLOOD ORDERABLES Fi nal Result Performing Organization Address [facility]/ZIP Co de Phone Number [facility] [place] [address] * (ABNORMAL) CBC without differential (08/05/2024 9:41 PM CDT) Pathologist [facility] WBC 9.1 3.8 - 9.9 K/cumm Hgb 7.9(L) 13.0 - 17.5 g/dL [facility] Hct 25.4(L) 38.9 - 50.3 % [facility] Plt 238 150 - 400 K/cumm [facility] MPV 9.4 9.1 - 12.3 fL [facility] RBC 3.13(L) 4.30 - 5.80 M/cumm [facility] MCV 81.2(L) 81.3 - 96.4 fL [facility] MCH 25.2(L) 27.1 - 33.3 pg [facility] MCHC 31.1(L) 32.3 - 35.7 g/dL [facility] RDW CV 16.5(H) 11.1 - 14.9 % [facility] RDW SD 48.0 35.7 - 48.1 fL [facility] NRBC abs 0.03(H) 0.00 - 0.01 K/cumm [facility] Blood 08/05/2024 9:41 PM CDT 08/05/2024 10:26 PM CDT Leonor Quan MD LAB BLOOD ORDERABLES Fi nal Result Performing Organization Address City/[facility]/ZIP Co de Phone Number [facility] [place] [address] * POCT glucose (08/05/2024 9:23 PM CDT) Glucose, POC 136 70 - 199 mg/dL Blood 08/05/2024 9:23 PM CDT 08/05/2024 9:23 PM CDT Leonor Quan MD LAB POCT ORDERABLES - D EVICE Final Result Performing Organization Address [facility] Co de Phone Number [facility] [place] [address] * POCT glucose (08/05/2024 3:55 PM CDT) Glucose, POC 150 70 - 199 mg/dL Blood 08/05/2024 3:55 PM CDT 08/05/2024 3:55 PM CDT Leonor Quan MD LAB POCT ORDERABLES - D EVICE Final Result Performing Organization Address [facility] [place] [address] * POCT glucose (08/05/2024 12:22 PM CDT) Glucose, POC 130 70 - 199 mg/dL Blood 08/05/2024 12:2 2 PM CDT 08/05/2024 12:22 PM CDT Leonor Quan MD LAB POCT ORDERABLES - D EVICE Final Result Performing Organization Address [facility] [place] [address] * X-ray chest 2 views (08/05/2024 9:45 [...] * POCT glucose (08/05/2024 8:34 AM CDT) Glucose, POC 123 70 - 199 mg/dL Blood 08/05/2024 8:34 AM CDT 08/05/2024 8:34 AM CDT us Leonor Quan MD LAB POCT ORDERABLES - D EVICE Final Result [facility] Department [place] [address] * eGFR (08/04/2024 9:28 PM CDT) eGFR [...] nal Result Performing Organization Address [facility] de Phone Number [facility] [place] [address] * Phosphorus (08/04/2024 9:28 PM CDT) Phosphorus, pl 4.4 2.3 - 4.5 mg/dL Blood 08/04/2024 9:28 PM CDT 08/04/2024 10:05 PM CDT Result [facility] Leonor Quan MD LAB BLOOD ORDERABLES Fi nal Result Performing Organization Address [facility] de Phone Number [facility] [place] [address] * Magnesium (08/04/2024 9:28 PM CDT) Magnesium 2.1 1.4 - 2.5 mg/dL Blood 08/04/2024 9:28 PM CDT 08/04/2024 10:05 PM CDT Leonor Quan MD LAB BLOOD ORDERABLES Fi nal Result Performing Organization Address [facility]/State/ZIP Co de Phone Number [facility] Department [place] [address] * (ABNORMAL) Basic metabolic panel (08/04/2024 9:28 PM CDT) Pathologist [facility] Sodium 139 135 - 145 mmol/L Potassium, pl 4.5 3.3 - 4.9 mmol/L [facility] Comment:Hemolyzed; Potassium value may be falsely elevated by as much as 0.3-0.5 mmol/L. Suggest redraw and reanalysis. Chloride 101 97 - 110 mmol/L [facility] CO2 25 22 - 32 mmol/L [facility] Anion gap 13 2 - 15 mmol/L [facility] BUN 33(H) 6 - 25 mg/dL [facility] Creatinine 1.10 0.80 - 1.30 mg/dL [facility] Glucose 114 70 - 199 mg/dL [facility] Comment: Interpretive Data Fasting glucose >/= 126 [...] 2022. Calcium 8.5 8.5 - 10.3 mg/dL [facility] Blood 08/04/2024 9:28 PM CDT 08/04/2024 10:05 PM CDT us Leonor Quan MD LAB BLOOD ORDERABLES Fi nal Result GILLIAN ERAZO [facility] Department [place] [address] * (ABNORMAL) CBC without differential (08/04/2024 9:28 PM CDT) Pathologist [facility] WBC 10.7(H) 3.8 - 9.9 K/cumm Hgb 7.9(L) 13.0 - 17.5 g/dL [facility] Hct 25.1(L) 38.9 - 50.3 % [facility] Plt 191 150 - 400 K/cumm [facility] MPV 9.8 9.1 - 12.3 fL [facility] RBC 3.07(L) 4.30 - 5.80 M/cumm [facility] MCV 81.8 81.3 - 96.4 fL [facility] MCH 25.7(L) 27.1 - 33.3 pg [facility] MCHC 31.5(L) 32.3 - 35.7 g/dL [facility] RDW CV 16.5(H) 11.1 - 14.9 % [facility] RDW SD 48.9(H) 35.7 - 48.1 fL [facility] NRBC abs 0.04(H) 0.00 - 0.01 K/cumm [facility] Blood 08/04/2024 9:28 PM CDT 08/04/2024 10:06 PM CDT Leonor Quan MD LAB BLOOD ORDERABLES Fi nal Result [facility] [place] [address] * POCT glucose (08/04/2024 8:22 PM CDT) [facility] Signature Glucose, POC 141 70 - 199 mg/dL Blood 08/04/2024 8:22 PM CDT 08/04/2024 8:22 PM CDT Leonor Quan MD LAB POCT ORDERABLES - D EVICE Final Result Performing Organization Address City/[facility]/ZIP Co de Phone Number [facility] [place] [address] * POCT glucose (08/04/2024 4:56 PM CDT) Glucose, POC 110 70 - 199 mg/dL Blood 08/04/2024 4:56 PM CDT 08/04/2024 4:56 PM CDT us Leonor Quan MD LAB POCT ORDERABLES - D EVICE Final Result [facility] [place] [address] * X-ray chest 1 view (Portable) (08/04/2024 [...] -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 3) ICM -LVEF 40-50% pre op, [...] device programming: - RA Lead (#[id number] S/N [id number]): Sensing 2.5 mV, Pacing threshold 0.75 V at 0.4 ms, Imp 608 Ohm - RV Lead (#[id number]): Sensing 6.6 mV, Pacing threshold 0.75 V at 0.4 ms Imp 456 Ohm - LV Lead (#[id number] S/N [id number]): Sensing NA mV, Pacing threshold 1.0 V at 0.4 ms, Imp 418 Ohm - Device: ??EMERGENCY DEPARTMENT MANAGER-D (Cobolt HF Quad #[id number] S/N [id number]), programmed DDD 60-130 BPM - Zones: VF> [...] days post-discharge Lucy Meyer MD Clinical Cardiac Aligner Typewriter us Altagracia Roman ASSET COORDINATOR CV ELECTROPHYSIOLOGY PROCS F inal Result * POCT glucose (08/04/2024 9:44 AM CDT) Glucose, POC 111 70 - 199 mg/dL Blood 08/04/2024 9:44 AM CDT 08/04/2024 9:44 AM CDT us Leonor Quan MD LAB POCT ORDERABLES - D EVICE Final Result [facility] Evelin [facility] Department [place] [address] * POCT glucose (08/04/2024 7:25 AM CDT) Glucose, POC 104 70 - 199 mg/dL Blood 08/04/2024 7:25 AM CDT 08/04/2024 7:25 AM CDT us Leonor Quan MD LAB POCT ORDERABLES - D EVICE Final Result Performing Organization Address City/[facility] Co de Phone Number [facility] Evelin [facility] [place] [address] * Critical Care (08/04/2024 7:15 AM CDT) [...] plan with the patient's team and other medical/programmer analyst consultant staff. This time was in addition [...] Chemistries, Venous - (08/04/2024 4:13 AM CDT) Pathologist [facility] pH, Laurent POC 7.38 7.32 - 7.43 pCO2, laurent POC 42 40 - 50 mmHg [facility] pO2, laurent POC 44 mmHg [facility] Na, POC 137 135 - 145 mmol/L [facility] K POC 4.8 3.3 - 4.9 mmol/L [facility] Comment: Interpretive Data Not all point of care methods assess for hemolysis. Confirm with instrument and retest K+ if not consistent with clinical signs and symptoms. Current Interpretive Data was last revised on 2024. Cl, POC 108 97 - 110 mmol/L [facility] Ionized Ca, POC 4.97 4.50 - 5.10 mg/dL [facility] Glucose, POC 106 70 - 199 mg/dL [facility] Lactate, POC 1.2 0.7 - 2.2 mmol/L [facility] O2 Sat, Laurent POC (Aliza) 68 % [facility] Base excess, POC -0.3 mmol/L [facility] HCO3, Laurent POC 25 20 - 30 mmol/L [facility] Hct, POC 25.0(L) 41.4 - 51.6 % [facility] Total Hb, POC 8.3(L) 13.8 - 17.2 g/dL [facility] Blood 08/04/2024 4:13 AM CDT 08/04/2024 4:13 AM CDT us Leonor Quan MD LAB POCT ORDERABLES - D EVICE Final Result [facility] Department [place] [address] * eGFR (08/03/2024 11:02 PM CDT) Pathologist [facility] eGFR 68 >=60 mL/min/1. 73 m2 Comment: [...] nal Result Performing Organization Address [facility] Co de Phone Number [facility]IAN [facility] [place] [address] * Calcium, ionized (08/03/2024 11:02 PM CDT) Calcium, Ionized 4.59 4.50 - 5.10 mg/dL Blood 08/03/2024 11:0 2 PM CDT 08/03/2024 11:28 PM CDT us Leonor Quan MD LAB BLOOD ORDERABLES Ed ited Result - Final Performing Organization Address City/[facility] Co de Phone Number [facility] Department [place] [address] * Phosphorus (08/03/2024 11:02 PM CDT) [facility] Phosphorus, pl 4.5 2.3 - 4.5 mg/dL Blood 08/03/2024 11:0 2 PM CDT 08/03/2024 11:28 PM CDT Leonor Quan MD LAB BLOOD ORDERABLES Fi nal Result Performing Organization Address [facility] Co de Phone Number [facility] Department [place] [address] * Magnesium (08/03/2024 11:02 PM CDT) [facility] Magnesium 2.1 1.4 - 2.5 mg/dL Blood 08/03/2024 11:0 2 PM CDT 08/03/2024 11:28 PM CDT Leonor Quan MD LAB BLOOD ORDERABLES Fi nal Result Performing Organization Address [facility] de Phone Number [facility] [place] [address] * (ABNORMAL) Basic metabolic panel (08/03/2024 11:02 PM CDT) [facility] Sodium 137 135 - 145 mmol/L Potassium, pl 4.3 3.3 - 4.9 mmol/L [facility] Chloride 105 97 - 110 mmol/L [facility] CO2 24 22 - 32 mmol/L [facility] Anion gap 8 2 - 15 mmol/L [facility] BUN 34(H) 6 - 25 mg/dL [facility] Creatinine 1.15 0.80 - 1.30 mg/dL [facility] Glucose 110 70 - 199 mg/dL [facility] Comment: Interpretive Data Fasting glucose >/= 126 [...] 2022. Calcium 8.8 8.5 - 10.3 mg/dL [facility] Blood 08/03/2024 11:0 2 PM CDT 08/03/2024 11:28 PM CDT Leonor Quan MD LAB BLOOD ORDERABLES Fi nal Result [facility] Department [place] [address] * (ABNORMAL) CBC without differential (08/03/2024 11:02 PM CDT) WBC 12.3(H) 3.8 - 9.9 K/cumm Hgb 7.7(L) 13.0 - 17.5 g/dL [facility] Hct 23.7(L) 38.9 - 50.3 % [facility] Plt 189 150 - 400 K/cumm [facility] MPV 9.8 9.1 - 12.3 fL [facility] RBC 2.88(L) 4.30 - 5.80 M/cumm [facility] MCV 82.3 81.3 - 96.4 fL [facility] MCH 26.7(L) 27.1 - 33.3 pg [facility] MCHC 32.5 32.3 - 35.7 g/dL [facility] RDW CV 16.4(H) 11.1 - 14.9 % [facility] RDW SD 49.1(H) 35.7 - 48.1 fL [facility] NRBC abs 0.06(H) 0.00 - 0.01 K/cumm [facility] Blood 08/03/2024 11:0 2 PM CDT 08/03/2024 11:40 PM CDT Leonor Quan MD LAB BLOOD ORDERABLES Fi nal Result Performing Organization Address [facility] Co de Phone Number [facility] [place] [address] * POCT glucose (08/03/2024 8:28 PM CDT) Glucose, POC 116 70 - 199 mg/dL Blood 08/03/2024 8:28 PM CDT 08/03/2024 8:28 PM CDT Leonor Quan MD LAB POCT ORDERABLES - D EVICE Final Result Performing Organization Address [facility] Co de Phone Number [facility] [place] [address] * POCT glucose (08/03/2024 5:33 PM CDT) Glucose, POC 113 70 - 199 mg/dL Blood 08/03/2024 5:33 PM CDT 08/03/2024 5:33 PM CDT Leonor Quan MD LAB POCT ORDERABLES - D EVICE Final Result Performing Organization Address [facility] Co de Phone Number [facility] [place] [address] * Potassium, whole blood (08/03/2024 4:20 PM CDT) Potassium, bld 3.3 3.3 - 4.9 mmol/L Blood 08/03/2024 4:20 PM CDT 08/03/2024 4:30 PM CDT Leonor Quan MD LAB BLOOD ORDERABLES Fi nal Result Performing Organization Address City/[facility]/ZIP Co de Phone Number [facility] [place] [address] * TRANSTHORACIC ECHO (TTE) LIMITED/FOLLOW UP W LTD DOPPLER/CF W CONTRAST (08/03/2024 3:57 PM CDT) LV EF 26 % CARDIOREPORT Anatomical Region Laterality Modality Ultrasound 08/03/2024 3:15 PM CDT Narrative 08/03/2024 4:04 PM CDT Patient name: Abiel Fink Date of test: 08/03/2024 Type of test: Limited TTE [facility] #: 0 Date of : 1950 (M) Corporate Communications Specialist: Jojo Chapa RDCS Referring Physician: SHANTAL ELIZABETH MD Contrast Agent: 0.8 ml Optison Administered, (2.2 ml wasted). Contrast Administered by: ANALYST PROGRAMMER Supervised/Interpreted by: Eric Roberts MD Diagnosis: chf Location: [facility] Reason for test: Evaluate LV prior [...] 2=Hypo 3=Akinetic 4=Dyskin./Aneurysm 0=Not visualized) Parasternal Long Marfa:MAS=2 BAS=2 MIL=2 LORNE=2 Parasternal Short Marfa:MAS=2 MIS=2 WA=2 MIL=2 MAL=2 MA=2 Apical 4 Chambers:=2 MIS=2 BIS=2 BAL=2 MAL=2 AL=2 AC=2 Apical 2 Chambers:AI=2 WA=2 BI=2 BA=2 MA=2 AA=2 AC=2 LV Global [...] Valve: mild TV regurgitation Pulmonic Valve: Mild RI AV Regurgitation: Mid AR AV Stenosis: AV Area: ??cm2 AV Pressure Gradient (mmHg): Mean: 0, Peak:0 MV Regurgitation: Mod MR MV Stenosis: MV Area: ??cm2 MV Pressure Gradient (mmHg): Mean: 0 MV ERO: ??cm Regurg. Vol.: ??ml/beat Regurg. Frac.: ??% PA Pressure: 30-35 mmHg DOPPLER/COLOR FOLOW DOPPLER COMMENTS: Mid AR, Mod MR, mild TV regurgitation, Mild RI. Diastolic function: indeterminate CONTRAST: 0.8 ml Optison [...] MD By signing this report, the attending lithographic platemaker certifies that he or she has personally supervised and interpreted the echocardiogram and has reviewed and or edited and agrees with the written comments contained within the report. Procedure Note Eric Roberts MD PhD - 08/03/2024 Patient name: Abiel Fink Date of test: 08/03/2024 Type of test: [facility] #: 0 Date of : 1950 (M) Corporate Communications Specialist: Jojo Chapa [facility] Referring Physician: SHANTAL ELIZABETH MD Contrast Agent: 0.8 ml Optison Administered, (2.2 ml wasted). Contrast Administered by: ANALYST PROGRAMMER Supervised/Interpreted by: Eric Roberts MD Diagnosis: chf Location: [facility] Reason for test: Evaluate LV prior [...] 2=Hypo 3=Akinetic 4=Dyskin./Aneurysm 0=Not visualized) Parasternal Long Marfa:MAS=2 BAS=2 MIL=2 LORNE=2 Parasternal Short Marfa:MAS=2 MIS=2 WA=2 MIL=2 MAL=2 MA=2 Apical 4 Chambers:=2 MIS=2 BIS=2 BAL=2 MAL=2 AL=2 AC=2 Apical 2 Chambers:AI=2 WA=2 BI=2 BA=2 MA=2 AA=2 AC=2 LV Global [...] Valve: mild TV regurgitation Pulmonic Valve: Mild RI AV Regurgitation: Mid AR AV Stenosis: AV Area: cm2 AV Pressure Gradient (mmHg): Mean: 0, Peak:0 MV Regurgitation: Mod MR MV Stenosis: MV Area: cm2 MV Pressure Gradient (mmHg): Mean: 0 MV ERO: cm Regurg. Vol.: ml/beat Regurg. Frac.: % PA Pressure: 30-35 mmHg DOPPLER/COLOR FOLOW DOPPLER COMMENTS: Mid AR, Mod MR, mild TV regurgitation, Mild RI. Diastolic function: indeterminate CONTRAST: 0.8 ml Optison [...] MD By signing this report, the attending lithographic platemaker certifies that he or she has personally supervised and interpreted the echocardiogram and has reviewed and or edited and agrees with the written comments contained within the report. Shantal Elizabeth NP CV ECHO PROCEDURE S Final Result * POCT glucose (08/03/2024 12:25 PM CDT) Glucose, POC 168 70 - 199 mg/dL Blood 08/03/2024 12:2 5 PM CDT 08/03/2024 12:25 PM CDT us Leonor Quan MD LAB POCT ORDERABLES - D EVICE Final Result [facility] [place] [address] * Potassium, whole blood (08/03/2024 8:13 AM CDT) Potassium, bld 3.7 3.3 - 4.9 mmol/L Blood 08/03/2024 8:13 AM CDT 08/03/2024 8:19 AM CDT Leonor Quan MD LAB BLOOD ORDERABLES Fi nal Result Performing Organization Address [facility] Co de Phone Number [facility] [place] [address] * POCT glucose (08/03/2024 8:10 AM CDT) Glucose, POC 152 70 - 199 mg/dL Blood 08/03/2024 8:10 AM CDT 08/03/2024 8:10 AM CDT Leonor Quan MD LAB POCT ORDERABLES - D EVICE Final Result Performing Organization Address [facility] de Phone Number [facility] [place] [address] * Critical Care (08/03/2024 7:13 AM CDT) [...] plan with the ICU team and other medical/programmer analyst consultant staff, making frequent assessments and decisions [...] Potassium, whole blood (08/03/2024 5:15 AM CDT) [facility] Potassium, bld 4.0 3.3 - 4.9 mmol/L Blood 08/03/2024 5:15 AM CDT 08/03/2024 5:23 AM CDT us Leonor Quan MD LAB BLOOD ORDERABLES Fi nal Result Performing Organization Address City/State/[facility] Co de Phone Number [facility] [facility] [place] [address] * (ABNORMAL) CBC without differential (08/03/2024 5:09 AM CDT) [facility] WBC 12.1(H) 3.8 - 9.9 K/cumm Hgb 7.9(L) 13.0 - 17.5 g/dL [facility] Hct 24.1(L) 38.9 - 50.3 % [facility] Plt 189 150 - 400 K/cumm [facility] MPV 10.3 9.1 - 12.3 fL [facility] RBC 2.97(L) 4.30 - 5.80 M/cumm [facility] MCV 81.1(L) 81.3 - 96.4 fL [facility] MCH 26.6(L) 27.1 - 33.3 pg [facility] MCHC 32.8 32.3 - 35.7 g/dL [facility] RDW CV 16.6(H) 11.1 - 14.9 % [facility] RDW SD 48.1 35.7 - 48.1 fL [facility] NRBC abs 0.09(H) 0.00 - 0.01 K/cumm [facility] Blood 08/03/2024 5:09 AM CDT 08/03/2024 5:22 AM CDT Erin Hawkins ASSET COORDINATOR LAB BLOOD ORDERABLES Fi nal Result Performing Organization Address [facility] de Phone Number [facility] [place] [address] * (ABNORMAL) Urinalysis, microscopic only (08/03/2024 5:01 AM CDT) WBC, ur 6-10(A) 0 - 5 /HPF RBC, ur >50(A) 0 - 2 /HPF [facility] Epithelial cells, squamous, ur 1-5 0 - 5 /HPF [facility] Mucous, ur Present(A) [facility] Hyaline casts, ur 1-5 0 - 10 /LPF [facility] Urine 08/03/2024 5:01 AM CDT 08/03/2024 5:07 AM CDT Erin Hawkins ASSET COORDINATOR LAB URINE ORDERABLES Fi nal Result Performing Organization Address [facility] Co de Phone Number [facility] [place] [address] * (ABNORMAL) Urinalysis reflex to microscopic (08/03/2024 5:01 AM CDT) Color, ur Straw Yellow Clarity, ur Clear Clear [facility] Specific gravity, ur 1.015 1.003 - 1.030 [facility] pH, urine 6.0 [facility] Comment: Interpretive Data ? Urine pH is affected by diet, medications, systemic acid-base disturbances, and renal tubular function. ??pH may affect urinary stone formation. ??For example, urine pH below 6.0 may help reduce the tendency for calcium phosphate stones and pH greater than 6.0 may reduce the tendency for uric acid stone formation. Source: [facility] Current Interpretive Data was last revised on 2017 Protein, ur ql Negative Negative [facility] Glucose, ur ql Negative Negative [facility] Ketones, ur Negative Negative [facility] Bilirubin, ur Negative Negative [facility] Blood, ur 3+(A) Negative [facility] Urobilinogen, ur <2.0 <2.0 mg/dL [facility] Nitrite, ur Negative Negative [facility] Leukocyte esterase, ur 1+(A) Negative [facility] UA reflex comment Reflex to microscopic UA will be performed. [facility] Urine 08/03/2024 5:01 AM CDT 08/03/2024 5:07 AM CDT us Erin Hawkins NP LAB URINE ORDERABLES Fi nal Result Performing Organization Address [facility] Co de Phone Number [facility] [place] [address] * Potassium, whole blood (08/03/2024 2:56 AM CDT) Potassium, bld 3.9 3.3 - 4.9 mmol/L Blood 08/03/2024 2:56 AM CDT 08/03/2024 3:03 AM CDT Leonor Quan MD LAB BLOOD ORDERABLES Fi nal Result Performing Organization Address City/[facility]/ZIP Co de Phone Number [facility] [place] [address] * eGFR (08/03/2024 12:16 AM CDT) eGFR [...] ORDERABLES Fi nal Result Performing Organization Address City/[facility] Co de Phone Number [facility] [place] [address] * Potassium, whole blood (08/03/2024 12:16 AM CDT) Potassium, bld 3.8 3.3 - 4.9 mmol/L Blood 08/03/2024 12:1 6 AM CDT 08/03/2024 12:27 AM CDT us Leonor Quan MD LAB BLOOD ORDERABLES Fi nal Result Performing Organization Address City/[facility] Co de Phone Number [facility] [place] [address] * (ABNORMAL) Calcium, ionized (08/03/2024 12:16 AM CDT) Pathologist [facility] Calcium, Ionized 4.11(L) 4.50 - 5.10 mg/dL Blood 08/03/2024 12:1 6 AM CDT 08/03/2024 12:27 AM CDT Leonor Quan MD LAB BLOOD [place] [address] * Phosphorus (08/03/2024 12:16 AM CDT) Pathologist [facility] Phosphorus, pl 4.0 2.3 - 4.5 mg/dL Blood 08/03/2024 12:1 6 AM CDT 08/03/2024 12:27 AM CDT Leonor Quan MD LAB BLOOD ORDERABLES Fi nal Result [facility] [place] [address] * Magnesium (08/03/2024 12:16 AM CDT) [facility] Magnesium 2.1 1.4 - 2.5 mg/dL Blood 08/03/2024 12:1 6 AM CDT 08/03/2024 12:27 AM CDT Leonor Quan MD LAB BLOOD ORDERABLES Fi nal Result [facility] [place] [address] * (ABNORMAL) Basic metabolic panel (08/03/2024 12:16 AM CDT) [facility] Sodium 138 135 - 145 mmol/L Potassium, pl 4.0 3.3 - 4.9 mmol/L [facility] Chloride 106 97 - 110 mmol/L [facility] CO2 24 22 - 32 mmol/L [facility] Anion gap 8 2 - 15 mmol/L [facility] BUN 40(H) 6 - 25 mg/dL [facility] Creatinine 1.18 0.80 - 1.30 mg/dL [facility] Glucose 130 70 - 199 mg/dL [facility] Comment: Interpretive Data Fasting glucose >/= 126 [...] 2022. Calcium 8.4(L) 8.5 - 10.3 mg/dL [facility] Blood 08/03/2024 12:1 6 AM CDT 08/03/2024 12:27 AM CDT us Leonor Quan MD LAB BLOOD ORDERABLES Fi nal Result [facility] [place] [address] * (ABNORMAL) CBC without differential (08/03/2024 12:16 AM CDT) [facility] WBC 11.4(H) 3.8 - 9.9 K/cumm Hgb 7.7(L) 13.0 - 17.5 g/dL [facility] Hct 23.9(L) 38.9 - 50.3 % [facility] Plt 176 150 - 400 K/cumm [facility] MPV 10.1 9.1 - 12.3 fL [facility] RBC 2.92(L) 4.30 - 5.80 M/cumm [facility] MCV 81.8 81.3 - 96.4 fL [facility] MCH 26.4(L) 27.1 - 33.3 pg [facility] MCHC 32.2(L) 32.3 - 35.7 g/dL [facility] RDW CV 16.4(H) 11.1 - 14.9 % [facility] RDW SD 48.8(H) 35.7 - 48.1 fL [facility] NRBC abs 0.06(H) 0.00 - 0.01 K/cumm [facility] Blood 08/03/2024 12:1 6 AM CDT 08/03/2024 12:31 AM CDT Leonor Quan MD LAB BLOOD ORDERABLES Fi nal Result Performing Organization Address City/[facility]/ZIP Co de Phone Number [facility] [place] [address] * POCT glucose (08/02/2024 7:50 PM CDT) Glucose, POC 121 70 - 199 mg/dL Blood 08/02/2024 7:50 PM CDT 08/02/2024 7:50 PM CDT Leonor Quan MD LAB POCT ORDERABLES - D EVICE Final Result [facility] [place] [address] * Potassium, whole blood (08/02/2024 7:50 PM CDT) Potassium, bld 3.6 3.3 - 4.9 mmol/L Blood 08/02/2024 7:50 PM CDT 08/02/2024 7:56 PM CDT Leonor Quan MD LAB BLOOD ORDERABLES Fi nal Result [facility] [place] [address] * Critical Care (08/02/2024 7:40 PM CDT) [...] plan with the ICU team and other medical/programmer analyst consultant staff, making frequent assessments and decisions [...] nal Result Performing Organization Address [facility] [place] [address] * Type and screen (08/02/2024 6:07 PM CDT) Janell, indirect Negative ABO Rh O Positive [facility] Blood 08/02/2024 6:07 PM CDT 08/02/2024 6:35 PM CDT Narrative [facility] - 08/02/2024 7:55 PM CDT Has the patient had Daratumumab or Isatuximab in the past 6 months?->Unknown Leonor Quan MD LAB BLOOD BANK TEST ORD ERABLES Final Result Performing Organization Address [facility] Co de Phone Number [facility] [place] [address] * POCT glucose (08/02/2024 5:50 PM CDT) Glucose, POC 160 70 - 199 mg/dL Blood 08/02/2024 5:50 PM CDT 08/02/2024 5:50 PM CDT Leonor Quan MD LAB POCT ORDERABLES - D EVICE Final Result Performing Organization Address City/[facility] Co de Phone Number [facility] [place] [address] * POCT glucose (08/02/2024 12:21 PM CDT) Glucose, POC 144 70 - 199 mg/dL Blood 08/02/2024 12:2 1 PM CDT 08/02/2024 12:21 PM CDT Leonor Quan MD LAB POCT ORDERABLES - D EVICE Final Result Performing Organization Address City/[facility]/ZIP Co de Phone Number [facility] [place] [address] * POCT glucose (08/02/2024 7:52 AM CDT) Glucose, POC 120 70 - 199 mg/dL Blood 08/02/2024 7:52 AM CDT 08/02/2024 7:52 AM CDT us Leonor Quan MD LAB POCT ORDERABLES - D EVICE Final Result Performing Organization Address [facility] Co de Phone Number [facility] Evelin [facility] [place] [address] * Critical Care (08/02/2024 6:00 AM CDT) [...] plan with the ICU team and other medical/programmer analyst consultant staff, making frequent assessments and decisions [...] in the medical record us Mala Latif ASSET COORDINATOR IN CLINIC/BEDSIDE CONTRERASNav DAVID Final Result * Potassium, whole blood (08/02/2024 4:10 AM CDT) Potassium, bld 3.8 3.3 - 4.9 mmol/L Blood 08/02/2024 4:10 AM CDT 08/02/2024 4:17 AM CDT us Leonor Quan MD LAB BLOOD ORDERABLES Fi nal Result [facility] [place] [address] * eGFR (08/01/2024 11:31 PM CDT) eGFR [...] ORDERABLES Fi nal Result Performing Organization Address City/[facility] Co de Phone Number [facility] [place] [address] * Potassium, whole blood (08/01/2024 11:31 PM CDT) Potassium, bld 4.1 3.3 - 4.9 mmol/L Blood 08/01/2024 11:3 1 PM CDT 08/01/2024 11:39 PM CDT Leonor Quan MD LAB BLOOD ORDERABLES Fi nal Result Performing Organization Address [facility] de Phone Number [facility] [place] [address] * (ABNORMAL) Calcium, ionized (08/01/2024 11:31 PM CDT) Calcium, Ionized 4.40(L) 4.50 - 5.10 mg/dL Blood 08/01/2024 11:3 1 PM CDT 08/01/2024 11:40 PM CDT Leonor Quan MD LAB BLOOD ORDERABLES Fi nal Result Performing Organization Address City/[facility] Co de Phone Number [facility] [place] [address] * (ABNORMAL) Phosphorus (08/01/2024 11:31 PM CDT) Phosphorus, pl 4.6(H) 2.3 - 4.5 mg/dL Blood 08/01/2024 11:3 1 PM CDT 08/01/2024 11:55 PM CDT Leonor Quan MD LAB BLOOD ORDERABLES Fi nal Result [facility] [place] [address] * Magnesium (08/01/2024 11:31 PM CDT) [facility] Magnesium 2.1 1.4 - 2.5 mg/dL Blood 08/01/2024 11:3 1 PM CDT 08/01/2024 11:55 PM CDT Leonor Quan MD LAB BLOOD ORDERABLES Fi nal Result Performing Organization Address [facility] Co de Phone Number [facility] [place] [address] * (ABNORMAL) Basic metabolic panel (08/01/2024 11:31 PM CDT) [facility] Sodium 142 135 - 145 mmol/L Potassium, pl 4.3 3.3 - 4.9 mmol/L [facility] Chloride 106 97 - 110 mmol/L [facility] CO2 22 22 - 32 mmol/L [facility] Anion gap 14 2 - 15 mmol/L [facility] BUN 41(H) 6 - 25 mg/dL [facility] Creatinine 1.11 0.80 - 1.30 mg/dL [facility] Glucose 123 70 - 199 mg/dL [facility] Comment: Interpretive Data Fasting glucose >/= 126 [...] 2022. Calcium 8.9 8.5 - 10.3 mg/dL [facility] Blood 08/01/2024 11:3 1 PM CDT 08/01/2024 11:55 PM CDT Leonor Quan MD LAB BLOOD ORDERABLES Fi nal Result Performing Organization Address [facility] Co de Phone Number [facility] [place] [address] * (ABNORMAL) CBC without differential (08/01/2024 11:31 PM CDT) [facility] WBC 8.3 3.8 - 9.9 K/cumm Hgb 8.2(L) 13.0 - 17.5 g/dL [facility] Hct 25.5(L) 38.9 - 50.3 % [facility] Plt 154 150 - 400 K/cumm [facility] MPV 10.7 9.1 - 12.3 fL [facility] RBC 3.07(L) 4.30 - 5.80 M/cumm [facility] MCV 83.1 81.3 - 96.4 fL [facility] MCH 26.7(L) 27.1 - 33.3 pg [facility] MCHC 32.2(L) 32.3 - 35.7 g/dL [facility] RDW CV 16.2(H) 11.1 - 14.9 % [facility] RDW SD 48.8(H) 35.7 - 48.1 fL [facility] NRBC abs 0.09(H) 0.00 - 0.01 K/cumm [facility] Blood 08/01/2024 11:3 1 PM CDT 08/01/2024 11:54 PM CDT Leonor Quan MD LAB BLOOD ORDERABLES Fi nal Result Performing Organization Address City/[facility]/ZIP Co de Phone Number [facility] [place] [address] * Potassium, whole blood (08/01/2024 8:24 PM CDT) Pathologist [facility] Potassium, bld 4.2 3.3 - 4.9 mmol/L Blood 08/01/2024 8:24 PM CDT 08/01/2024 8:31 PM CDT Leonor Quan MD LAB BLOOD ORDERABLES Fi nal Result Performing Organization Address [facility] de Phone Number [facility] [place] [address] * POCT glucose (08/01/2024 8:23 PM CDT) [facility] Glucose, POC 133 70 - 199 mg/dL Blood 08/01/2024 8:23 PM CDT 08/01/2024 8:23 PM CDT Result [facility] Leonor Quan MD LAB POCT ORDERABLES - D EVICE Final Result Performing Organization Address [facility] de Phone Number [facility] [place] [address] * (ABNORMAL) Blood gas, arterial (08/01/2024 5:04 PM CDT) [facility] pH, Art 7.40 7.35 - 7.45 PCO2, Arterial 36 35 - 45 mmHg [facility] PO2, Arterial 98 83 - 108 mmHg [facility] HCO3 Art (Calculated) 23 20 - 30 mmol/L [facility] BE, art -2 mmol/L [facility] Comment: Interpretive Data No Reference Range Established Current Interpretive Data was last revised on 2017 O2 Sat Art (Measured) 98(H) 90 - 95 % [facility] Blood 08/01/2024 5:04 PM CDT 08/01/2024 5:11 PM CDT Leonor Quan MD LAB BLOOD ORDERABLES Fi nal Result Performing Organization Address [facility]/ZIP Co de Phone Number [facility] [place] [address] * POCT glucose (08/01/2024 4:22 PM CDT) Glucose, POC 127 70 - 199 mg/dL Blood 08/01/2024 4:22 PM CDT 08/01/2024 4:22 PM CDT Leonor Quan MD LAB POCT ORDERABLES - D EVICE Final Result Performing Organization Address [facility] Co de Phone Number [facility] [place] [address] * Potassium, whole blood (08/01/2024 4:22 PM CDT) Potassium, bld 3.5 3.3 - 4.9 mmol/L Blood 08/01/2024 4:22 PM CDT 08/01/2024 4:29 PM CDT Leonor Quan MD LAB BLOOD ORDERABLES Fi nal Result Performing Organization Address [facility] de Phone Number [facility] [place] [address] * XR Chest 1 View (08/01/2024 2:12 [...] by: Roger Rodríguez M.D. us Analilia Reilly ASSET COORDINATOR IMG XR PROCEDURES Tiffany l Result * POCT glucose (08/01/2024 11:54 AM CDT) Glucose, POC 121 70 - 199 mg/dL Blood 08/01/2024 11:5 4 AM CDT 08/01/2024 11:54 AM CDT us Leonor Quan MD LAB POCT ORDERABLES - D EVICE Final Result [facility] Department of Laboratories [place], [place] [id number] * POCT glucose (08/01/2024 7:49 AM CDT) Glucose, POC 97 70 - 199 mg/dL Blood 08/01/2024 7:49 AM CDT 08/01/2024 7:49 AM CDT us Leonor Quan MD LAB POCT ORDERABLES - D EVICE Final Result [facility] [place] [address] * Critical Care (08/01/2024 6:00 AM CDT) [...] plan with the ICU team and other medical/programmer analyst consultant staff, making frequent assessments and decisions [...] Potassium, whole blood (08/01/2024 5:24 AM CDT) Potassium, bld 4.0 3.3 - 4.9 mmol/L Blood 08/01/2024 5:24 AM CDT 08/01/2024 5:33 AM CDT Leonor Quan MD LAB BLOOD ORDERABLES Fi nal Result [facility] [place] [address] * eGFR (07/31/2024 11:16 PM CDT) eGFR [...] ORDERABLES Fi nal Result Performing Organization Address City/[facility] Co de Phone Number [facility] [place] [address] * Potassium, whole blood (07/31/2024 11:16 PM CDT) Potassium, bld 3.6 3.3 - 4.9 mmol/L Blood 07/31/2024 11:1 6 PM CDT 07/31/2024 11:23 PM CDT Leonor Quan MD LAB BLOOD ORDERABLES Fi nal Result Performing Organization Address [facility] de Phone Number [facility] [place] [address] * Calcium, ionized (07/31/2024 11:16 PM CDT) Calcium, Ionized 4.63 4.50 - 5.10 mg/dL Blood 07/31/2024 11:1 6 PM CDT 07/31/2024 11:29 PM CDT Leonor Quan MD LAB BLOOD ORDERABLES Fi nal Result Performing Organization Address [facility] Co de Phone Number [facility] [place] [address] * Phosphorus (07/31/2024 11:16 PM CDT) Phosphorus, pl 3.5 2.3 - 4.5 mg/dL Blood 07/31/2024 11:1 6 PM CDT 07/31/2024 11:29 PM CDT Leonor Quan MD LAB BLOOD ORDERABLES Fi nal Result Performing Organization Address City/[facility] Co de Phone Number [facility] [place] [address] * Magnesium (07/31/2024 11:16 PM CDT) [facility] Magnesium 2.1 1.4 - 2.5 mg/dL Blood 07/31/2024 11:1 6 PM CDT 07/31/2024 11:29 PM CDT Leonor Quan MD LAB BLOOD ORDERABLES Fi nal Result Performing Organization Address [facility] Co de Phone Number [facility] [place] [address] * (ABNORMAL) Basic metabolic panel (07/31/2024 11:16 PM CDT) [facility] Sodium 144 135 - 145 mmol/L Potassium, pl 3.9 3.3 - 4.9 mmol/L [facility] Chloride 109 97 - 110 mmol/L [facility] CO2 25 22 - 32 mmol/L [facility] Anion gap 10 2 - 15 mmol/L [facility] BUN 46(H) 6 - 25 mg/dL [facility] Creatinine 1.06 0.80 - 1.30 mg/dL [facility] Glucose 119 70 - 199 mg/dL [facility] Comment: Interpretive Data Fasting glucose >/= 126 [...] 2022. Calcium 8.1(L) 8.5 - 10.3 mg/dL [facility] Blood 07/31/2024 11:1 6 PM CDT 07/31/2024 11:29 PM CDT Leonor Quan MD LAB BLOOD ORDERABLES Fi nal Result Performing Organization Address City/[facility]/ZIP Co de Phone Number [facility] [place] [address] * (ABNORMAL) CBC without differential (07/31/2024 11:16 PM CDT) [facility] WBC 5.6 3.8 - 9.9 K/cumm Hgb 7.4(L) 13.0 - 17.5 g/dL [facility] Hct 24.4(L) 38.9 - 50.3 % [facility] Plt 121(L) 150 - 400 K/cumm [facility] MPV 10.5 9.1 - 12.3 fL [facility] RBC 2.86(L) 4.30 - 5.80 M/cumm [facility] MCV 85.3 81.3 - 96.4 fL [facility] MCH 25.9(L) 27.1 - 33.3 pg [facility] MCHC 30.3(L) 32.3 - 35.7 g/dL [facility] RDW CV 16.5(H) 11.1 - 14.9 % [facility] RDW SD 50.6(H) 35.7 - 48.1 fL [facility] NRBC abs 0.10(H) 0.00 - 0.01 K/cumm [facility] Blood 07/31/2024 11:1 6 PM CDT 07/31/2024 11:29 PM CDT Leonor Quan MD LAB BLOOD ORDERABLES Fi nal Result [facility] [place] [address] * POCT glucose (07/31/2024 8:20 PM CDT) Glucose, POC 161 70 - 199 mg/dL Blood 07/31/2024 8:20 PM CDT 07/31/2024 8:20 PM CDT Leonor Quan MD LAB POCT ORDERABLES - D EVICE Final Result Performing Organization Address [facility] Co de Phone Number [facility] [place] [address] * Potassium, whole blood (07/31/2024 8:20 PM CDT) Potassium, bld 3.6 3.3 - 4.9 mmol/L Blood 07/31/2024 8:20 PM CDT 07/31/2024 8:28 PM CDT Leonor Quan MD LAB BLOOD ORDERABLES Fi nal Result Performing Organization Address [facility] de Phone Number [facility] [place] [address] * Critical Care (07/31/2024 6:44 PM CDT) [...] plan with the patient's team and other medical/programmer analyst consultant staff. This time was in addition to and separate from care provided by other practitioners on this day of service. ? I spent time reviewing and interpreting data from bedside monitors, laboratory results, and imaging, I spent time discussing the management of this critically ill patient with consultants and the medical staff and I spent time documenting in the medical record Payton Fernando ASSET COORDINATOR IN CLINIC/BEDSIDE ORDERABLES F inal Result * XR Chest 1 View (07/31/2024 6:00 PM CDT) Anatomical Region Laterality Modality Body, Chest N/A Digital Radiogra phy 07/31/2024 6:14 PM CDT Impressions 07/31/2024 6:14 PM CDT Comparison 07/30/2024 5:58 PM. ??Sternal plates intact. Right internal jugular central venous catheter tip overlies the superior vena cava. ??Gilman-Gwen catheter has been removed. Cardiomediastinal silhouette in [...] catheter tip overlies the superior vena cava. Gilman-Gwen catheter has been removed. Cardiomediastinal silhouette in keeping with postoperative change. Mild left lower lobe atelectasis and small left pleural effusion again seen. Trace pulmonary edema may be present. No definite pneumothorax seen. Electronically signed by: Serafin Terrell M.D. Mala Pineda ASSET COORDINATOR IMG XR PROCEDURES Final Resu lt * Potassium, whole blood (07/31/2024 4:59 PM CDT) Potassium, bld 3.4 3.3 - 4.9 mmol/L Blood 07/31/2024 4:59 PM CDT 07/31/2024 5:06 PM CDT us Leonor Quan MD LAB BLOOD ORDERABLES Fi nal Result Performing Organization Address [facility] Co de Phone Number [facility] [place] [address] * POCT glucose (07/31/2024 4:57 PM CDT) Glucose, POC 130 70 - 199 mg/dL Blood 07/31/2024 4:57 PM CDT 07/31/2024 4:57 PM CDT Leonor Quan MD LAB POCT ORDERABLES - D EVICE Final Result Performing Organization Address [facility] Co de Phone Number [facility] [place] [address] * GENERAL (07/31/2024 12:53 PM CDT) Narrative Leonor Quan MD - 07/31/2024 12:53 PM CDT Leonor Quan MD ? 07/31/2024 ??1:05 PM Pulmonary Artery Catheter Removal Date/Time: 07/31/2024 12:53 PM Performed by: Leonor Quan MD Authorized by: Leonor Quan MD ?? [place] Protocol: RN Notified of Procedure: yes ?? Informed consent: ??Risks, benefits, alternatives discussed and patient/manufacturers service representative/guardian agrees and accepts Patient's stated name/ [...] pulmonary artery catheter at bedside using the Barrow technique (Intensive Care Medicine, 1996). ??The patient [...] but eventually it pulled out intact. ??A [id number] 2-0 Prolene suture was used to close the tract. ??There was no bleeding. ?? Patient tolerance: ??Patient tolerated the procedure well with no immediate complications Post Procedure Debrief: All guidewires, needles, sponges or other items are accounted for: yes ?? Any special post procedure monitoring, testing or other considerations: n/a ?? All specimens identified, labeled and matched to patient identification: n/a ?? Responsible libertarian for transporting specimen(s) to lab determined: n/a ?? Leonor Quan MD IN CLINIC/BEDSIDE ORDER AKILA Final Result * POCT glucose (07/31/2024 11:24 AM CDT) Glucose, POC 106 70 - 199 mg/dL Blood 07/31/2024 11:2 4 AM CDT 07/31/2024 11:24 AM CDT Leonor Quan MD LAB POCT ORDERABLES - D EVICE Final Result GILLIAN ERAZO [facility] Department of Laboratories [place], [place] [id number] * Potassium, whole blood (07/31/2024 11:24 AM CDT) Potassium, bld 3.5 3.3 - 4.9 mmol/L Blood 07/31/2024 11:2 4 AM CDT 07/31/2024 11:33 AM CDT us Leonor Quan MD LAB BLOOD ORDERABLES Fi nal Result GILLIAN [facility] [place] [address] * TEST CLERK Evaluation and Treatment (07/31/2024 8:56 AM CDT) Narrative Erin Zaragoza, TEST CLERK - 07/31/2024 8:56 AM CDT Erin Zaragoza TEST CLERK ? 07/31/2024 ??9:46 AM Speech-Language Pathology: Clinical Bedside Swallow HPI/PMH 74 y.o. yo male w/ PMHx of HTN, HLD, CAD, moderate MR, 2nd degree av block, asthma, JACQUELINE, pHTN, hepatic steatosis, GERD, hiatal hernia, DM Type II (Hgb A1c7.5), hx of pituitary adenoma, and obesity. Patient with worsening shortness of breath and functional status. He was referred to [facility] for surgical management. 07/24: CABG x [...] 2 and bilateral chest tubes. Changed from [employer] WORKER to Epi. 07/25: Inhaled Veletri added for [...] Self feeding. Current Diet Order: NPO pending TEST CLERK re-evaluation General Information Abiel Fink 07/31/24 General [...] Clinical Impression/Additional Information: Per comparison with initial TEST CLERK evaluation note yesterday, pt's mental status significantly [...] MASA score improved from 140/200 yesterday. Plan TEST CLERK Frequency of Services during current admission: Discharge from this Service TEST CLERK Recommendation (Add'l Services): No further TEST CLERK indicated Next Visit Plan: No further TEST CLERK visits planned in acute care; please re-refer if additional dysphagia concerns arise. Please reference care plan for treatment goals, if indicated. Discharge Summary Statement If this is the last swallow therapy visit, this serves as the discharge summary. us Shantal Elizabeth NP TEST CLERK ORDERABLES F inal Result * POCT glucose (07/31/2024 7:38 AM CDT) Glucose, POC 121 70 - 199 mg/dL Blood 07/31/2024 7:38 AM CDT 07/31/2024 7:38 AM CDT us Leonor Quan MD LAB POCT ORDERABLES - D JULIETTE Final Result GILLIAN [facility] Department of Laboratories [place], [place] [id number] * Critical Care (07/31/2024 6:00 AM CDT) [...] plan with the ICU team and other medical/programmer analyst consultant staff, making frequent assessments and decisions [...] PCO2, Arterial 39 35 - 45 mmHg [facility] PO2, Arterial 114(H) 83 - 108 mmHg [facility] HCO3 Art (Calculated) 27 20 - 30 mmol/L [facility] BE, art 2 mmol/L [facility] Comment: Interpretive Data No Reference Range Established Current Interpretive Data was last revised on 2017 O2 Sat Art (Measured) 99(H) 90 - 95 % [facility] Blood 07/31/2024 4:22 AM CDT 07/31/2024 4:28 AM CDT Leonor Quan MD LAB BLOOD ORDERABLES Fi nal Result Performing Organization Address City/State/[facility] Co de Phone Number [facility] [place] [address] * (ABNORMAL) Hemoglobin total, pulmonary artery (07/31/2024 4:22 AM CDT) Hemoglobin total, PA 8.1(L) 13.0 - 17.5 g/dL Blood 07/31/2024 4:22 AM CDT 07/31/2024 4:28 AM CDT Amber KUHN LAB BLOOD ORDERABLES Fi nal Result Performing Organization Address [facility] Co de Phone Number [facility] [place] [address] * Oxyhemoglobin, pulmonary artery (07/31/2024 4:22 AM CDT) Oxyhemoglobin, PA 55.5 % Comment: Interpretive Data No reference range established. Current interpretive data was last revised 2020. Blood 07/31/2024 4:22 AM CDT 07/31/2024 4:28 AM CDT Amber KUHN LAB BLOOD ORDERABLES Fi nal Result Performing Organization Address [facility] Co de Phone Number [facility] [place] [address] * Potassium, whole blood (07/31/2024 4:22 AM CDT) Potassium, bld 3.5 3.3 - 4.9 mmol/L Blood 07/31/2024 4:22 AM CDT 07/31/2024 4:28 AM CDT Leonor Quan MD LAB BLOOD ORDERABLES Fi nal Result Performing Organization Address [facility] Co de Phone Number [facility] [place] [address] * eGFR (07/30/2024 11:39 PM CDT) eGFR [...] PM CDT 07/31/2024 12:14 AM CDT us Amber KUHN LAB BLOOD ORDERABLES Fi nal Result GILLIAN [facility] Department [place] [address] * (ABNORMAL) Blood gas, arterial (07/30/2024 11:39 PM CDT) Pathologist [facility] pH, Art 7.44 7.35 - 7.45 PCO2, Arterial 38 35 - 45 mmHg [facility] PO2, Arterial 114(H) 83 - 108 mmHg [facility] HCO3 Art (Calculated) 27 20 - 30 mmol/L [facility] BE, art 2 mmol/L [facility] Comment: Interpretive Data No Reference Range Established Current Interpretive Data was last revised on 2017 O2 Sat Art (Measured) 99(H) 90 - 95 % [facility] Blood 07/30/2024 11:3 9 PM CDT 07/30/2024 11:53 PM CDT Leonor Quan MD LAB BLOOD ORDERABLES Fi nal Result Performing Organization Address [facility] de Phone Number [facility] [place] [address] * Oxyhemoglobin, pulmonary artery (07/30/2024 11:39 PM CDT) Oxyhemoglobin, PA 62.1 % Comment: Interpretive Data No reference range established. Current interpretive data was last revised 2020. Blood 07/30/2024 11:3 9 PM CDT 07/30/2024 11:53 PM CDT Amber KUHN LAB BLOOD ORDERABLES Fi nal Result Performing Organization Address [facility] de Phone Number [facility] Department [place] [address] * (ABNORMAL) Hemoglobin total, pulmonary artery (07/30/2024 11:39 PM CDT) Hemoglobin total, PA 7.7(L) 13.0 - 17.5 g/dL Blood 07/30/2024 11:3 9 PM CDT 07/30/2024 11:53 PM CDT Amber KUHN LAB BLOOD ORDERABLES Fi nal Result Performing Organization Address [facility]/[place] [address] * Calcium, ionized (07/30/2024 11:39 PM CDT) Pathologist [facility] Calcium, Ionized 4.68 4.50 - 5.10 mg/dL Blood 07/30/2024 11:3 9 PM CDT 07/30/2024 11:53 PM CDT Leonor Quan MD LAB BLOOD ORDERABLES Fi nal Result Performing Organization Address City/[facility] [place] [address] * Phosphorus (07/30/2024 11:39 PM CDT) [facility] Phosphorus, pl 3.6 2.3 - 4.5 mg/dL Blood 07/30/2024 11:3 9 PM CDT 07/31/2024 12:14 AM CDT Leonor Quan MD LAB BLOOD ORDERABLES Fi nal Result Performing Organization Address City/[facility]/[place] [address] * Magnesium (07/30/2024 11:39 PM CDT) [facility] Magnesium 2.1 1.4 - 2.5 mg/dL Blood 07/30/2024 11:3 9 PM CDT 07/31/2024 12:14 AM CDT Leonor Quan MD LAB BLOOD ORDERABLES Fi nal Result Performing Organization Address City/[facility]/ZIP Co de Phone Number [facility] [place] [address] * (ABNORMAL) Basic metabolic panel (07/30/2024 11:39 PM CDT) [facility] Sodium 148(H) 135 - 145 mmol/L Potassium, pl 3.3 3.3 - 4.9 mmol/L [facility] Chloride 109 97 - 110 mmol/L [facility] CO2 30 22 - 32 mmol/L [facility] Anion gap 9 2 - 15 mmol/L [facility] BUN 56(H) 6 - 25 mg/dL [facility] Creatinine 1.20 0.80 - 1.30 mg/dL [facility] Glucose 169 70 - 199 mg/dL [facility] Comment: Interpretive Data Fasting glucose >/= 126 [...] 2022. Calcium 8.5 8.5 - 10.3 mg/dL [facility] Blood 07/30/2024 11:3 9 PM CDT 07/31/2024 12:14 AM CDT us Leonor Quan MD LAB BLOOD ORDERABLES Fi nal Result [facility] Department [place] [address] * (ABNORMAL) CBC without differential (07/30/2024 11:39 PM CDT) [facility] WBC 4.0 3.8 - 9.9 K/cumm Hgb 7.3(L) 13.0 - 17.5 g/dL [facility] Hct 23.5(L) 38.9 - 50.3 % [facility] Plt 91(L) 150 - 400 K/cumm [facility] MPV 11.0 9.1 - 12.3 fL [facility] RBC 2.72(L) 4.30 - 5.80 M/cumm [facility] MCV 86.4 81.3 - 96.4 fL [facility] MCH 26.8(L) 27.1 - 33.3 pg [facility] MCHC 31.1(L) 32.3 - 35.7 g/dL [facility] RDW CV 16.8(H) 11.1 - 14.9 % [facility] RDW SD 52.2(H) 35.7 - 48.1 fL [facility] NRBC abs 0.14(H) 0.00 - 0.01 K/cumm [facility] Blood 07/30/2024 11:3 9 PM CDT 07/31/2024 12:14 AM CDT Leonor Quan MD LAB BLOOD ORDERABLES Fi nal Result Performing Organization Address City/[facility]/ZIP Co de Phone Number [facility] [place] [address] * POCT glucose (07/30/2024 8:05 PM CDT) [facility] Signature Glucose, POC 162 70 - 199 mg/dL Blood 07/30/2024 8:05 PM CDT 07/30/2024 8:05 PM CDT Leonor Quan MD LAB POCT ORDERABLES - D EVICE Final Result Performing Organization Address City/[facility]/ZIP Co de Phone Number [facility] [place] [address] * Critical Care (07/30/2024 6:37 PM CDT) [...] plan with the ICU team and other medical/programmer analyst consultant staff, making frequent assessments and decisions [...] by: Maria Dolores Garcia M.D. Mala Pineda ASSET COORDINATOR IMG XR PROCEDURES Final Resu lt * POCT glucose (07/30/2024 5:01 PM CDT) Glucose, POC 181 70 - 199 mg/dL Blood 07/30/2024 5:01 PM CDT 07/30/2024 5:01 PM CDT Result [facility] Leonor Quan MD LAB POCT ORDERABLES - D EVICE Final Result [facility] [place] [place] [address] * Type and screen (07/30/2024 5:01 PM CDT) ABO Rh O Positive Janell, indirect Negative [facility] Blood 07/30/2024 5:01 PM CDT 07/30/2024 5:13 PM CDT Narrative [facility] - 07/30/2024 6:00 PM CDT Has the patient had Daratumumab or Isatuximab in the past 6 months?->Unknown Leonor Quan MD LAB BLOOD BANK TEST ORD ERABLES Final Result Performing Organization Address City/[facility]/ZIP Co de Phone Number [facility] [place] [address] * (ABNORMAL) eGFR (07/30/2024 12:13 PM CDT) eGFR 54(L) >=60 mL/min/1. 73 m2 [...] NP LAB BLOOD ORDERAB LES Final Result GILLIAN ERAZO [facility] [place] [address] * (ABNORMAL) Basic metabolic panel (07/30/2024 12:13 PM CDT) Sodium 152(H) 135 - 145 mmol/L Potassium, pl 3.5 3.3 - 4.9 mmol/L [facility] Chloride 112(H) 97 - 110 mmol/L [facility] CO2 33(H) 22 - 32 mmol/L [facility] Anion gap 7 2 - 15 mmol/L [facility] BUN 56(H) 6 - 25 mg/dL [facility] Creatinine 1.38(H) 0.80 - 1.30 mg/dL [facility] Glucose 153 70 - 199 mg/dL [facility] Comment: Interpretive Data Fasting glucose >/= 126 [...] 2022. Calcium 8.6 8.5 - 10.3 mg/dL [facility] Blood 07/30/2024 12:1 3 PM CDT 07/30/2024 12:32 PM CDT us Shantal Elizabeth NP LAB BLOOD ORDERAB LES Final Result Performing Organization Address City/[facility]/ZIP Co de Phone Number [facility] [place] [address] * POCT glucose (07/30/2024 10:56 AM CDT) Glucose, POC 141 70 - 199 mg/dL Blood 07/30/2024 10:5 6 AM CDT 07/30/2024 10:56 AM CDT us Leonor Quan MD LAB POCT ORDERABLES - D EVICE Final Result Performing Organization Address City/[facility]/ZIP Co de Phone Number [facility] Department [place] [address] * POCT glucose (07/30/2024 7:50 AM CDT) Glucose, POC 173 70 - 199 mg/dL Blood 07/30/2024 7:50 AM CDT 07/30/2024 7:50 AM CDT us Leonor Quan MD LAB POCT ORDERABLES - D EVICE Final Result CERNER BJ [facility] [place] [address] * Critical Care (07/30/2024 7:48 AM CDT) [...] plan with the ICU team and other medical/programmer analyst consultant staff, making frequent assessments and decisions [...] in the medical record us Shantal Elizabeth ASSET COORDINATOR IN CLINIC/BEDSIDE ORDERABLES Final Result * (ABNORMAL) Hemoglobin total, pulmonary artery (07/30/2024 7:48 AM CDT) Hemoglobin total, PA 7.6(L) 13.0 - 17.5 g/dL Blood 07/30/2024 7:48 AM CDT 07/30/2024 8:03 AM CDT Amber KUHN LAB BLOOD ORDERABLES Fi nal Result Performing Organization Address [facility] Co de Phone Number [facility] [place] [address] * Oxyhemoglobin, pulmonary artery (07/30/2024 7:48 AM CDT) Oxyhemoglobin, PA 70.7 % Comment: Interpretive Data No reference range established. Current interpretive data was last revised 2020. Blood 07/30/2024 7:48 AM CDT 07/30/2024 8:03 AM CDT Amber KUHN LAB BLOOD ORDERABLES Fi nal Result Performing Organization Address [facility] Co de Phone Number [facility] [place] [address] * (ABNORMAL) Blood gas, arterial (07/30/2024 7:48 AM CDT) pH, Art 7.46(H) 7.35 - 7.45 PCO2, Arterial 42 35 - 45 mmHg [facility] PO2, Arterial 148(H) 83 - 108 mmHg [facility] HCO3 Art (Calculated) 30 20 - 30 mmol/L [facility] BE, art 5 mmol/L [facility] Comment: Interpretive Data No Reference Range Established Current Interpretive Data was last revised on 2017 O2 Sat Art (Measured) 100(H) 90 - 95 % [facility] Blood 07/30/2024 7:48 AM CDT 07/30/2024 8:03 AM CDT us Leonor Quan MD LAB BLOOD ORDERABLES Fi nal Result Performing Organization Address [facility] de Phone Number GILLIAN ERAZO [facility] Department [place] [address] * (ABNORMAL) eGFR (07/30/2024 1:01 AM CDT) [...] AM CDT 07/30/2024 1:13 AM CDT us Amber KUHN LAB BLOOD ORDERABLES Fi nal Result Performing Organization Address [facility]/State/ZIP Co de Phone Number [facility] [place] [address] * Phosphorus (07/30/2024 1:01 AM CDT) [facility] Phosphorus, pl 4.1 2.3 - 4.5 mg/dL Blood 07/30/2024 1:01 AM CDT 07/30/2024 1:13 AM CDT Leonor Quan MD LAB BLOOD ORDERABLES Fi nal Result Performing Organization Address [facility] Co de Phone Number [facility] [place] [address] * Magnesium (07/30/2024 1:01 AM CDT) [facility] Magnesium 2.0 1.4 - 2.5 mg/dL Blood 07/30/2024 1:01 AM CDT 07/30/2024 1:13 AM CDT Leonor Quan MD LAB BLOOD ORDERABLES Fi nal Result Performing Organization Address [facility] de Phone Number [facility] [place] [address] * (ABNORMAL) Basic metabolic panel (07/30/2024 1:01 AM CDT) [facility] Sodium 150(H) 135 - 145 mmol/L Potassium, pl 3.6 3.3 - 4.9 mmol/L [facility] Chloride 107 97 - 110 mmol/L [facility] CO2 34(H) 22 - 32 mmol/L [facility] Anion gap 9 2 - 15 mmol/L [facility] BUN 56(H) 6 - 25 mg/dL [facility] Creatinine 1.39(H) 0.80 - 1.30 mg/dL [facility] Glucose 148 70 - 199 mg/dL [facility] Comment: Interpretive Data Fasting glucose >/= 126 [...] 2022. Calcium 9.2 8.5 - 10.3 mg/dL [facility] Blood 07/30/2024 1:01 AM CDT 07/30/2024 1:13 AM CDT us Leonor Quan MD LAB BLOOD ORDERABLES Fi nal Result [facility] Department [place] [address] * (ABNORMAL) CBC without differential (07/30/2024 1:01 AM CDT) Pathologist [facility] WBC 3.8 3.8 - 9.9 K/cumm Hgb 7.6(L) 13.0 - 17.5 g/dL [facility] Hct 24.4(L) 38.9 - 50.3 % [facility] Plt 72(L) 150 - 400 K/cumm [facility] MPV 9.9 9.1 - 12.3 fL [facility] RBC 2.88(L) 4.30 - 5.80 M/cumm [facility] MCV 84.7 81.3 - 96.4 fL [facility] MCH 26.4(L) 27.1 - 33.3 pg [facility] MCHC 31.1(L) 32.3 - 35.7 g/dL [facility] RDW CV 17.1(H) 11.1 - 14.9 % [facility] RDW SD 52.5(H) 35.7 - 48.1 fL [facility] NRBC abs 0.20(H) 0.00 - 0.01 K/cumm [facility] Blood 07/30/2024 1:01 AM CDT 07/30/2024 1:13 AM CDT Leonor Quan MD LAB BLOOD ORDERABLES Fi nal Result Performing Organization Address City/State/[facility] Co de Phone Number [facility] [place] [address] * (ABNORMAL) Blood gas, arterial (07/29/2024 9:34 PM CDT) pH, Art 7.48(H) 7.35 - 7.45 PCO2, Arterial 42 35 - 45 mmHg [facility] PO2, Arterial 130(H) 83 - 108 mmHg [facility] HCO3 Art (Calculated) 32(H) 20 - 30 mmol/L [facility] BE, art 7 mmol/L [facility] Comment: Interpretive Data No Reference Range Established Current Interpretive Data was last revised on 2017 O2 Sat Art (Measured) 99(H) 90 - 95 % [facility] Blood 07/29/2024 9:34 PM CDT 07/29/2024 9:43 PM CDT Leonor Quan MD LAB BLOOD ORDERABLES Fi nal Result Performing Organization Address [facility] Co de Phone Number [facility] [place] [address] * (ABNORMAL) Hemoglobin total, pulmonary artery (07/29/2024 9:34 PM CDT) Hemoglobin total, PA 7.8(L) 13.0 - 17.5 g/dL Blood 07/29/2024 9:34 PM CDT 07/29/2024 9:43 PM CDT Amber KUHN LAB BLOOD ORDERABLES Fi nal Result Performing Organization Address City/[facility] Co de Phone Number [facility] Department [place] [address] * Oxyhemoglobin, pulmonary artery (07/29/2024 9:34 PM CDT) Oxyhemoglobin PA 61.1 % Comment: Interpretive Data No reference range established. Current interpretive data was last revised 2020. Blood 07/29/2024 9:34 PM CDT 07/29/2024 9:43 PM CDT Amber KUHN LAB BLOOD ORDERABLES Fi nal Result [facility] [place] [address] * POCT glucose (07/29/2024 8:34 PM CDT) Glucose, POC 138 70 - 199 mg/dL Blood 07/29/2024 8:34 PM CDT 07/29/2024 8:34 PM CDT Leonor Quan MD LAB POCT ORDERABLES - D EVICE Final Result Performing Organization Address City/[facility] Co de Phone Number [facility] [place] [address] * XR Chest 1 View (07/29/2024 6:51 [...] plan with the ICU team and other medical/programmer analyst consultant staff, making frequent assessments and decisions [...] consultants and the medical staff Payton Fernando ASSET COORDINATOR IN CLINIC/BEDSIDE ORDERABLES F inal Result * POCT glucose (07/29/2024 4:56 PM CDT) Glucose, POC 150 70 - 199 mg/dL Blood 07/29/2024 4:56 PM CDT 07/29/2024 4:56 PM CDT Leonor Quan MD LAB POCT ORDERABLES - D EVICE Final Result Performing Organization Address [facility] Co de Phone Number [facility] Department [place] [address] * Potassium, whole blood (07/29/2024 4:54 PM CDT) Pathologist [facility] Potassium, bld 3.9 3.3 - 4.9 mmol/L Blood 07/29/2024 4:54 PM CDT 07/29/2024 5:00 PM CDT Narrative [facility] - 07/29/2024 5:03 PM CDT While on Bumex infusion Mala Pineda NP LAB BLOOD ORDERABLES Final R esult Performing Organization Address City/[facility]/ZIP Co de Phone Number [facility] [place] [address] * Oxyhemoglobin, pulmonary artery (07/29/2024 12:24 PM CDT) Oxyhemoglobin, PA 66.2 % Comment: Interpretive Data No reference range established. Current interpretive data was last revised 2020. Blood 07/29/2024 12:2 4 PM CDT 07/29/2024 12:32 PM CDT Elinor Paul ASSET COORDINATOR LAB BLOOD ORDERABLES Fin al Result Performing Organization Address [facility] Co de Phone Number [facility] [place] [address] * Potassium, whole blood (07/29/2024 12:24 PM CDT) Pathologist [facility] Potassium, bld 4.1 3.3 - 4.9 mmol/L Blood 07/29/2024 12:2 4 PM CDT 07/29/2024 12:32 PM CDT Narrative [facility] - 07/29/2024 12:42 PM CDT While on Bumex infusion Mala Pineda ASSET COORDINATOR LAB BLOOD ORDERABLES Final R esult Performing Organization Address [facility] Co de Phone Number [facility] Department [place] [address] * (ABNORMAL) POCT glucose (07/29/2024 12:01 PM CDT) Glucose, POC 208(H) 70 - 199 mg/dL Blood 07/29/2024 12:0 1 PM CDT 07/29/2024 12:01 PM CDT Leonor Quan MD LAB POCT ORDERABLES - D DEANICE Final Result Performing Organization Address [facility] Co de Phone Number [facility] [place] [address] * POCT glucose (07/29/2024 9:14 AM CDT) Glucose, POC 158 70 - 199 mg/dL Blood 07/29/2024 9:14 AM CDT 07/29/2024 9:14 AM CDT us Leonor Quan MD LAB POCT ORDERABLES - D EVICE Final Result [facility] [place] [address] * Critical Care (07/29/2024 8:52 AM CDT) [...] plan with the ICU team and other medical/programmer analyst consultant staff, making frequent assessments and decisions [...] PCO2, Arterial 44 35 - 45 mmHg [facility] PO2, Arterial 137(H) 83 - 108 mmHg [facility] HCO3 Art (Calculated) 33(H) 20 - 30 mmol/L [facility] BE, art 8 mmol/L [facility] Comment: Interpretive Data No Reference Range Established Current Interpretive Data was last revised on 2017 O2 Sat Art (Measured) 100(H) 90 - 95 % [facility] Blood 07/29/2024 8:38 AM CDT 07/29/2024 8:45 AM CDT Leonor Quan MD LAB BLOOD [place] [address] * Oxyhemoglobin, pulmonary artery (07/29/2024 8:38 AM CDT) Oxyhemoglobin, PA 56.7 % Comment: Interpretive Data No reference range established. Current interpretive data was last revised 2020. Blood 07/29/2024 8:38 AM CDT 07/29/2024 8:45 AM CDT Amber KUHN LAB BLOOD ORDERABLES Fi nal Result Performing Organization Address City/[facility] Co de Phone Number [facility] [place] [address] * (ABNORMAL) Hemoglobin total, pulmonary artery (07/29/2024 8:38 AM CDT) Hemoglobin total, PA 8.2(L) 13.0 - 17.5 g/dL Blood 07/29/2024 8:38 AM CDT 07/29/2024 8:45 AM CDT Amber KUHN LAB BLOOD ORDERABLES Fi nal Result Performing Organization Address City/[facility] Co de Phone Number [facility] [place] [address] * Potassium, whole blood (07/29/2024 8:38 AM CDT) [facility] Potassium, bld 3.9 3.3 - 4.9 mmol/L Blood 07/29/2024 8:38 AM CDT 07/29/2024 8:45 AM CDT Narrative [facility] - 07/29/2024 8:53 AM CDT While on Bumex infusion Mala Krauseor ASSET COORDINATOR LAB BLOOD ORDERABLES Final R esult Performing Organization Address [facility] Co de Phone Number [facility] [place] [address] * Potassium, whole blood (07/29/2024 3:59 AM CDT) [facility] Potassium, bld 3.8 3.3 - 4.9 mmol/L Blood 07/29/2024 3:59 AM CDT 07/29/2024 4:07 AM CDT Narrative [facility] - 07/29/2024 4:11 AM CDT While on Bumex infusion Mala Krauseor ASSET COORDINATOR LAB BLOOD ORDERABLES Final R esult Performing Organization Address [facility] Co de Phone Number [facility] [place] [address] * eGFR (07/29/2024 12:31 AM CDT) Pathologist [facility] eGFR 62 >=60 mL/min/1. 73 m2 Comment: [...] KUHN LAB BLOOD ORDERABLES Fi nal Result [facility] Department [place] [address] * (ABNORMAL) Blood gas, arterial (07/29/2024 12:31 AM CDT) pH, Art 7.47(H) 7.35 - 7.45 PCO2, Arterial 41 35 - 45 mmHg [facility] PO2, Arterial 156(H) 83 - 108 mmHg [facility] HCO3 Art (Calculated) 31(H) 20 - 30 mmol/L [facility] BE, art 6 mmol/L [facility] Comment: Interpretive Data No Reference Range Established Current Interpretive Data was last revised on 2017 O2 Sat Art (Measured) 100(H) 90 - 95 % [facility] Blood 07/29/2024 12:3 1 AM CDT 07/29/2024 12:46 AM CDT Leonor Quan MD LAB BLOOD ORDERABLES Fi [facility] [place] [address] * Potassium, whole blood (07/29/2024 12:31 AM CDT) Potassium, bld 3.9 3.3 - 4.9 mmol/L Blood 07/29/2024 12:3 1 AM CDT 07/29/2024 12:46 AM CDT Leonor Quan MD LAB BLOOD ORDERABLES Fi nal Result Performing Organization Address [facility] [place] [address] * Oxyhemoglobin, pulmonary artery (07/29/2024 12:31 AM CDT) Oxyhemoglobin, PA 81.3 % Comment: Interpretive Data No reference range established. Current interpretive data was last revised 2020. Blood 07/29/2024 12:3 1 AM CDT 07/29/2024 12:46 AM CDT Amber KUHN LAB BLOOD ORDERABLES Fi nal Result Performing Organization Address [facility] Co de Phone Number [facility] [place] [address] * Phosphorus (07/29/2024 12:31 AM CDT) Phosphorus, pl 3.3 2.3 - 4.5 mg/dL Blood 07/29/2024 12:3 1 AM CDT 07/29/2024 12:52 AM CDT Leonor Quan MD LAB BLOOD ORDERABLES Fi nal Result Performing Organization Address City/[facility] Co de Phone Number [facility] Department [place] [address] * Magnesium (07/29/2024 12:31 AM CDT) Pathologist [facility] Magnesium 1.9 1.4 - 2.5 mg/dL Blood 07/29/2024 12:3 1 AM CDT 07/29/2024 12:52 AM CDT Leonor Quan MD LAB BLOOD ORDERABLES Fi nal Result [facility] [place] [address] * (ABNORMAL) Basic metabolic panel (07/29/2024 12:31 AM CDT) Pathologist [facility] Sodium 147(H) 135 - 145 mmol/L Potassium, pl 3.8 3.3 - 4.9 mmol/L [facility] Chloride 105 97 - 110 mmol/L [facility] CO2 31 22 - 32 mmol/L [facility] Anion gap 11 2 - 15 mmol/L [facility] BUN 55(H) 6 - 25 mg/dL [facility] Creatinine 1.23 0.80 - 1.30 mg/dL [facility] Glucose 147 70 - 199 mg/dL [facility] Comment: Interpretive Data Fasting glucose >/= 126 [...] 2022. Calcium 8.9 8.5 - 10.3 mg/dL [facility] Blood 07/29/2024 12:3 1 AM CDT 07/29/2024 12:52 AM CDT Leonor Quan MD LAB BLOOD ORDERABLES Fi nal Result [facility] [place] [address] * (ABNORMAL) CBC without differential (07/29/2024 12:31 AM CDT) WBC 4.2 3.8 - 9.9 K/cumm Hgb 7.7(L) 13.0 - 17.5 g/dL [facility] Hct 24.0(L) 38.9 - 50.3 % [facility] Plt 67(L) 150 - 400 K/cumm [facility] MPV 10.3 9.1 - 12.3 fL [facility] RBC 2.89(L) 4.30 - 5.80 M/cumm [facility] MCV 83.0 81.3 - 96.4 fL [facility] MCH 26.6(L) 27.1 - 33.3 pg [facility] MCHC 32.1(L) 32.3 - 35.7 g/dL [facility] RDW CV 17.1(H) 11.1 - 14.9 % [facility] RDW SD 50.2(H) 35.7 - 48.1 fL [facility] NRBC abs 0.07(H) 0.00 - 0.01 K/cumm [facility] Blood 07/29/2024 12:3 1 AM CDT 07/29/2024 12:53 AM CDT Leonor Quan MD LAB BLOOD ORDERABLES Fi nal Result [facility] [place] [address] * POCT glucose (07/29/2024 12:30 AM CDT) Glucose, POC 147 70 - 199 mg/dL Blood 07/29/2024 12:3 0 AM CDT 07/29/2024 12:30 AM CDT us Leonor Quan MD LAB POCT ORDERABLES - D EVICE Final Result [facility] [place] [address] * XR Chest 1 View (07/28/2024 8:12 PM CDT) Anatomical Region Laterality Modality Body, Chest N/A Computed Radiogr aphy 07/29/2024 6:20 AM CDT Impressions 07/29/2024 6:20 AM CDT Median sternotomy plates are again seen. ??The right internal jugular Gilman-Gwen catheter tip is over the right ventricular [...] are again seen. The right internal jugular Gilman-Gwen catheter tip is over the right ventricular [...] signed by: Preston Slade M.D. Mala Pineda ASSET COORDINATOR IMG XR PROCEDURES Final Resu lt * (ABNORMAL) Blood gas, arterial (07/28/2024 7:45 PM CDT) pH, Art 7.47(H) 7.35 - 7.45 PCO2, Arterial 40 35 - 45 mmHg [facility] PO2, Arterial 123(H) 83 - 108 mmHg [facility] HCO3 Art (Calculated) 30 20 - 30 mmol/L [facility] BE, art 5 mmol/L [facility] Comment: Interpretive Data No Reference Range Established Current Interpretive Data was last revised on 2017 O2 Sat Art (Measured) 99(H) 90 - 95 % [facility] Blood 07/28/2024 7:45 PM CDT 07/28/2024 7:51 PM CDT Leonor Quan MD LAB BLOOD ORDERABLES Fi nal Result [facility] Department [place] [address] * Oxyhemoglobin, pulmonary artery (07/28/2024 7:45 PM CDT) Oxyhemoglobin, PA 54.2 % Comment: Interpretive Data No reference range established. Current interpretive data was last revised 2020. Blood 07/28/2024 7:45 PM CDT 07/28/2024 7:52 PM CDT Amber KUHN LAB BLOOD ORDERABLES Fi nal Result Performing Organization Address City/[facility] Co de Phone Number [facility] [place] [address] * (ABNORMAL) Hemoglobin total, pulmonary artery (07/28/2024 7:45 PM CDT) Hemoglobin total, PA 9.7(L) 13.0 - 17.5 g/dL Blood 07/28/2024 7:45 PM CDT 07/28/2024 7:52 PM CDT Amber KUHN LAB BLOOD ORDERABLES Fi nal Result Performing Organization Address [facility] de Phone Number [facility] [place] [address] * Potassium, whole blood (07/28/2024 7:45 PM CDT) Potassium, bld 3.6 3.3 - 4.9 mmol/L Blood 07/28/2024 7:45 PM CDT 07/28/2024 7:51 PM CDT Leonor Quan MD LAB BLOOD ORDERABLES Fi nal Result Performing Organization Address City/[facility] Co de Phone Number [facility] [place] [address] * POCT glucose (07/28/2024 7:42 PM CDT) Glucose, POC 173 70 - 199 mg/dL Blood 07/28/2024 7:42 PM CDT 07/28/2024 7:42 PM CDT Leonor Quan MD LAB POCT ORDERABLES - D EVICE Final Result Performing Organization Address City/State/[facility] Co de Phone Number [facility] Department [place] [address] * Critical Care (07/28/2024 7:27 PM CDT) [...] plan with the ICU team and other medical/programmer analyst consultant staff, making frequent assessments and decisions [...] D EVICE Final Result Performing Organization Address City/State/[facility] Co de Phone Number [facility] [place] [address] * POCT glucose (07/28/2024 4:09 PM CDT) Glucose, POC 187 70 - 199 mg/dL Blood 07/28/2024 4:09 PM CDT 07/28/2024 4:09 PM CDT Leonor Quan MD LAB POCT ORDERABLES - D EVICE Final Result Performing Organization Address [facility] Co de Phone Number [facility] [place] [address] * (ABNORMAL) Hemoglobin total, central venous (07/28/2024 4:06 PM CDT) Hemoglobin total, CV 10.1(L) 13.0 - 17.5 g/dL Blood 07/28/2024 4:06 PM CDT 07/28/2024 4:29 PM CDT Amber KUHN LAB BLOOD ORDERABLES Fi nal Result Performing Organization Address [facility] Co de Phone Number [facility] [place] [address] * Oxyhemoglobin, central venous (07/28/2024 4:06 PM CDT) Oxyhemoglobin, CV 66.8 % Comment: Interpretive Data No reference range established. Current interpretive data was last revised 2020. Blood 07/28/2024 4:06 PM CDT 07/28/2024 4:29 PM CDT Leonor Quan MD LAB BLOOD ORDERABLES Fi nal Result Performing Organization Address [facility] Co de Phone Number [facility] Department [place] [address] * (ABNORMAL) Blood gas, arterial (07/28/2024 4:06 PM CDT) [facility] pH, Art 7.47(H) 7.35 - 7.45 PCO2, Arterial 39 35 - 45 mmHg [facility] PO2, Arterial 132(H) 83 - 108 mmHg [facility] HCO3 Art (Calculated) 29 20 - 30 mmol/L [facility] BE, art 4 mmol/L [facility] Comment: Interpretive Data No Reference Range Established Current Interpretive Data was last revised on 2017 O2 Sat Art (Measured) 100(H) 90 - 95 % [facility] Blood 07/28/2024 4:06 PM CDT 07/28/2024 4:29 PM CDT Leonor Quan MD LAB BLOOD ORDERABLES Fi nal Result Performing Organization Address City/[facility]/ZIP Co de Phone Number [facility] [place] [address] * Potassium, whole blood (07/28/2024 4:06 PM CDT) [facility] Potassium, bld 3.5 3.3 - 4.9 mmol/L Blood 07/28/2024 4:06 PM CDT 07/28/2024 4:29 PM CDT Leonor Quan MD LAB BLOOD ORDERABLES Fi nal Result [facility] [place] [address] * POCT glucose (07/28/2024 12:08 PM CDT) [facility] Glucose, POC 182 70 - 199 mg/dL Blood 07/28/2024 12:0 8 PM CDT 07/28/2024 12:08 PM CDT Leonor Quan MD LAB POCT ORDERABLES - D EVICE Final Result Performing Organization Address [facility] Co de Phone Number [facility] [place] [address] * Potassium, whole blood (07/28/2024 12:08 PM CDT) Potassium, bld 3.8 3.3 - 4.9 mmol/L Blood 07/28/2024 12:0 8 PM CDT 07/28/2024 12:17 PM CDT Narrative [facility] - 07/28/2024 12:22 PM CDT While on Bumex infusion Mala Pineda ASSET COORDINATOR LAB BLOOD ORDERABLES Final R esult Performing Organization Address [facility] Co de Phone Number [facility] [place] [address] * POCT glucose (07/28/2024 7:43 AM CDT) Glucose, POC 154 70 - 199 mg/dL Blood 07/28/2024 7:43 AM CDT 07/28/2024 7:43 AM CDT Leonor Quan MD LAB POCT ORDERABLES - D EVICE Final Result Performing Organization Address [facility] Co de Phone Number [facility] [place] [address] * Potassium, whole blood (07/28/2024 7:37 AM CDT) Potassium, bld 3.9 3.3 - 4.9 mmol/L Blood 07/28/2024 7:37 AM CDT 07/28/2024 7:49 AM CDT Narrative [facility] - 07/28/2024 7:56 AM CDT While on Bumex infusion us Mala Pineda NP LAB BLOOD ORDERABLES Final R esult [facility] Department [place] [address] * Critical Care (07/28/2024 7:32 AM CDT) [...] plan with the ICU team and other medical/programmer analyst consultant staff, making frequent assessments and decisions [...] Final Result Performing Organization Address [facility] de Phone Number [facility] [place] [address] * Potassium, whole blood (07/28/2024 4:10 AM CDT) Pathologist [facility] Potassium, bld 3.8 3.3 - 4.9 mmol/L Blood 07/28/2024 4:10 AM CDT 07/28/2024 4:21 AM CDT Narrative [facility] - 07/28/2024 4:26 AM CDT While on Bumex infusion Mala Pineda NP LAB BLOOD ORDERABLES Final R esult Performing Organization Address [facility] de Phone Number [facility] [place] [address] * eGFR (07/28/2024 12:03 AM CDT) [facility] eGFR 70 >=60 mL/min/1. 73 m2 Comment: [...] KUHN LAB BLOOD ORDERABLES Fi nal Result [facility] [place] [address] * Lactate (07/28/2024 12:03 AM CDT) Lactate 1.4 0.7 - 2.0 mmol/L Blood 07/28/2024 12:0 3 AM CDT 07/28/2024 12:18 AM CDT Leonor Quan MD LAB BLOOD ORDERABLES Fi nal Result Performing Organization Address City/[facility]/ZIP Co de Phone Number [facility] [place] [address] * (ABNORMAL) Blood gas, arterial (07/28/2024 12:03 AM CDT) pH, Art 7.42 7.35 - 7.45 PCO2, Arterial 42 35 - 45 mmHg [facility] PO2, Arterial 83 83 - 108 mmHg [facility] HCO3 Art (Calculated) 28 20 - 30 mmol/L [facility] BE, art 3 mmol/L [facility] Comment: Interpretive Data No Reference Range Established Current Interpretive Data was last revised on 2017 O2 Sat Art (Measured) 97(H) 90 - 95 % [facility] Blood 07/28/2024 12:0 3 AM CDT 07/28/2024 12:09 AM CDT Leonor Quan MD LAB BLOOD ORDERABLES Fi nal Result Performing Organization Address [facility] de Phone Number [facility] [place] [address] * (ABNORMAL) Hemoglobin total, pulmonary artery (07/28/2024 12:03 AM CDT) Hemoglobin total, PA 8.4(L) 13.0 - 17.5 g/dL Blood 07/28/2024 12:0 3 AM CDT 07/28/2024 12:09 AM CDT Amber KUHN LAB BLOOD ORDERABLES Fi nal Result Performing Organization Address [facility] de Phone Number [facility] [place] [address] * Oxyhemoglobin, pulmonary artery (07/28/2024 12:03 AM CDT) Oxyhemoglobin, PA 74.3 % Comment: Interpretive Data No reference range established. Current interpretive data was last revised 2020. Blood 07/28/2024 12:0 3 AM CDT 07/28/2024 12:09 AM CDT Amber KUHN LAB BLOOD ORDERABLES Fi nal Result Performing Organization Address [facility] de Phone Number [facility] [place] [address] * Phosphorus (07/28/2024 12:03 AM CDT) Phosphorus, pl 3.4 2.3 - 4.5 mg/dL Blood 07/28/2024 12:0 3 AM CDT 07/28/2024 12:19 AM CDT Leonor Quan MD LAB BLOOD ORDERABLES Fi nal Result [facility] [place] [address] * Magnesium (07/28/2024 12:03 AM CDT) [facility] Magnesium 1.8 1.4 - 2.5 mg/dL Blood 07/28/2024 12:0 3 AM CDT 07/28/2024 12:19 AM CDT Leonor Quan MD LAB BLOOD ORDERABLES Fi nal Result Performing Organization Address [facility] Co de Phone Number [facility] [place] [address] * (ABNORMAL) Basic metabolic panel (07/28/2024 12:03 AM CDT) [facility] Sodium 145 135 - 145 mmol/L Potassium, pl 3.9 3.3 - 4.9 mmol/L [facility] Chloride 105 97 - 110 mmol/L [facility] CO2 30 22 - 32 mmol/L [facility] Anion gap 10 2 - 15 mmol/L [facility] BUN 47(H) 6 - 25 mg/dL [facility] Creatinine 1.12 0.80 - 1.30 mg/dL [facility] Glucose 187 70 - 199 mg/dL [facility] Comment: Interpretive Data Fasting glucose >/= 126 [...] 2022. Calcium 8.8 8.5 - 10.3 mg/dL [facility] Blood 07/28/2024 12:0 3 AM CDT 07/28/2024 12:19 AM CDT Leonor Quan MD LAB BLOOD ORDERABLES Fi nal Result Performing Organization Address [facility] de Phone Number [facility] Department [place] [address] * (ABNORMAL) CBC without differential (07/28/2024 12:03 AM CDT) [facility] WBC 8.6 3.8 - 9.9 K/cumm Hgb 8.1(L) 13.0 - 17.5 g/dL [facility] Hct 25.5(L) 38.9 - 50.3 % [facility] Plt 75(L) 150 - 400 K/cumm [facility] MPV 10.3 9.1 - 12.3 fL [facility] RBC 3.05(L) 4.30 - 5.80 M/cumm [facility] MCV 83.6 81.3 - 96.4 fL [facility] MCH 26.6(L) 27.1 - 33.3 pg [facility] MCHC 31.8(L) 32.3 - 35.7 g/dL [facility] RDW CV 17.1(H) 11.1 - 14.9 % [facility] RDW SD 50.9(H) 35.7 - 48.1 fL [facility] NRBC abs 0.02(H) 0.00 - 0.01 K/cumm [facility] Blood 07/28/2024 12:0 3 AM CDT 07/28/2024 12:19 AM CDT Leonor Quan MD LAB BLOOD ORDERABLES Fi nal Result Performing Organization Address [facility] Co de Phone Number [facility] Department [place] [address] * Potassium, whole blood (07/28/2024 12:03 AM CDT) Potassium, bld 3.8 3.3 - 4.9 mmol/L Blood 07/28/2024 12:0 3 AM CDT 07/28/2024 12:09 AM CDT Narrative [facility] - 07/28/2024 12:20 AM CDT While on Bumex infusion Mala Pineda ASSET COORDINATOR LAB BLOOD ORDERABLES Final R esult Performing Organization Address City/[facility] Co de Phone Number [facility] [place] [address] * POCT glucose (07/27/2024 11:50 PM CDT) [facility] Glucose, POC 186 70 - 199 mg/dL Blood 07/27/2024 11:5 0 PM CDT 07/27/2024 11:50 PM CDT Leonor Quan MD LAB POCT ORDERABLES - D EVICE Final Result Performing Organization Address [facility] Co de Phone Number [facility] [place] [address] * POCT glucose (07/27/2024 8:47 PM CDT) [facility] Glucose, POC 193 70 - 199 mg/dL Blood 07/27/2024 8:47 PM CDT 07/27/2024 8:47 PM CDT Leonor Quan MD LAB POCT ORDERABLES - D EVICE Final Result Performing Organization Address City/[facility] Co de Phone Number [facility] [place] [address] * (ABNORMAL) Blood gas, arterial (07/27/2024 8:47 PM CDT) [facility] pH, Art 7.46(H) 7.35 - 7.45 PCO2, Arterial 38 35 - 45 mmHg [facility] PO2, Arterial 137(H) 83 - 108 mmHg [facility] HCO3 Art (Calculated) 28 20 - 30 mmol/L [facility] BE, art 3 mmol/L [facility] Comment: Interpretive Data No Reference Range Established Current Interpretive Data was last revised on 2017 O2 Sat Art (Measured) 100(H) 90 - 95 % [facility] Blood 07/27/2024 8:47 PM CDT 07/27/2024 9:03 PM CDT Leonor Quan MD LAB BLOOD ORDERABLES Fi nal Result Performing Organization Address [facility]/ZIP Co de Phone Number [facility] Department [place] [address] * Potassium, whole blood (07/27/2024 8:47 PM CDT) Potassium, bld 3.7 3.3 - 4.9 mmol/L Blood 07/27/2024 8:47 PM CDT 07/27/2024 9:03 PM CDT Narrative [facility] - 07/27/2024 9:06 PM CDT While on Bumex infusion Mala Pineda NP LAB BLOOD ORDERABLES Final R esult Performing Organization Address [facility] Co de Phone Number [facility] [place] [address] * XR Chest 1 View (07/27/2024 8:44 [...] by: Serafin Terrell M.D. us Mala Pineda ASSET COORDINATOR IMG XR PROCEDURES Final Resu lt * [...] plan with the ICU team and other medical/programmer analyst consultant staff, making frequent assessments and decisions [...] D EVICE Final Result Performing Organization Address City/State/[facility] Co de Phone Number [facility] Department [place] [address] * (ABNORMAL) POCT glucose (07/27/2024 4:38 PM CDT) Glucose, POC 217(H) 70 - 199 mg/dL Blood 07/27/2024 4:38 PM CDT 07/27/2024 4:38 PM CDT Leonor Quan MD LAB POCT ORDERABLES - D EVICE Final Result Performing Organization Address [facility] de Phone Number [facility] Department [place] [address] * Type and screen (07/27/2024 4:30 PM CDT) Janell, indirect Negative ABO Rh O Positive [facility] Blood 07/27/2024 4:30 PM CDT 07/27/2024 5:42 PM CDT Narrative [facility] - 07/27/2024 6:40 PM CDT Has the patient had Daratumumab or Isatuximab in the past 6 months?->Unknown Leonor Quan MD LAB BLOOD BANK TEST ORD ERABLES Final Result Performing Organization Address [facility] de Phone Number [facility] [place] [address] * Potassium, whole blood (07/27/2024 4:30 PM CDT) [facility] Potassium, bld 3.8 3.3 - 4.9 mmol/L Blood 07/27/2024 4:30 PM CDT 07/27/2024 5:12 PM CDT Narrative [facility] [facility] - 07/27/2024 5:18 PM CDT While on Bumex infusion Mala Pineda NP LAB BLOOD ORDERABLES Final R esult Performing Organization Address [facility] Co de Phone Number [facility] [place] [address] * POCT glucose (07/27/2024 12:02 PM CDT) Glucose, POC 187 70 - 199 mg/dL Blood 07/27/2024 12:0 2 PM CDT 07/27/2024 12:02 PM CDT Leonor Quan MD LAB POCT ORDERABLES - D EVICE Final Result Performing Organization Address City/[facility] Co de Phone Number [facility] [place] [address] * Potassium, whole blood (07/27/2024 12:00 PM CDT) Potassium, bld 4.2 3.3 - 4.9 mmol/L Blood 07/27/2024 12:0 0 PM CDT 07/27/2024 12:11 PM CDT Leonor Quan MD LAB BLOOD ORDERABLES Fi nal Result Performing Organization Address [facility] de Phone Number [facility] [place] [address] * (ABNORMAL) Blood gas, arterial (07/27/2024 12:00 PM CDT) pH, Art 7.46(H) 7.35 - 7.45 PCO2, Arterial 35 35 - 45 mmHg [facility] PO2, Arterial 146(H) 83 - 108 mmHg [facility] HCO3 Art (Calculated) 26 20 - 30 mmol/L [facility] BE, art 1 mmol/L [facility] Comment: Interpretive Data No Reference Range Established Current Interpretive Data was last revised on 2017 O2 Sat Art (Measured) 100(H) 90 - 95 % [facility] Blood 07/27/2024 12:0 0 PM CDT 07/27/2024 12:11 PM CDT Leonor Quan MD LAB BLOOD ORDERABLES Fi nal Result Performing Organization Address [facility] [place] [address] * Lactate (07/27/2024 9:28 AM CDT) Lactate 1.7 0.7 - 2.0 mmol/L Blood 07/27/2024 9:28 AM CDT 07/27/2024 9:51 AM CDT Leonor Quan MD LAB BLOOD ORDERABLES Fi nal Result Performing Organization Address [facility] de Phone Number [facility] [place] [address] * Oxyhemoglobin, central venous (07/27/2024 9:28 AM CDT) Oxyhemoglobin, CV 63.4 % Comment: Interpretive Data No reference range established. Current interpretive data was last revised 2020. Blood 07/27/2024 9:28 AM CDT 07/27/2024 9:43 AM CDT Leonor Quan MD LAB BLOOD ORDERABLES Fi nal Result Performing Organization Address [facility] de Phone Number [facility] [place] [address] * (ABNORMAL) Blood gas, arterial (07/27/2024 9:28 AM CDT) pH, Art 7.41 7.35 - 7.45 PCO2, Arterial 40 35 - 45 mmHg [facility] PO2, Arterial 143(H) 83 - 108 mmHg [facility] HCO3 Art (Calculated) 26 20 - 30 mmol/L [facility] BE, art 1 mmol/L [facility] Comment: Interpretive Data No Reference Range Established Current Interpretive Data was last revised on 2017 O2 Sat Art (Measured) 100(H) 90 - 95 % [facility] Blood 07/27/2024 9:28 AM CDT 07/27/2024 9:43 AM CDT Result [facility] Leonor Quan MD LAB BLOOD ORDERABLES Fi nal Result Performing Organization Address [facility] de Phone Number [facility] [place] [address] * (ABNORMAL) Hemoglobin total, central venous (07/27/2024 9:28 AM CDT) [facility] Hemoglobin total, CV 8.9(L) 13.0 - 17.5 g/dL Blood 07/27/2024 9:28 AM CDT 07/27/2024 9:43 AM CDT Amber KUHN LAB BLOOD [place] [address] * POCT glucose (07/27/2024 9:18 AM CDT) [facility] Glucose, POC 155 70 - 199 mg/dL Blood 07/27/2024 9:18 AM CDT 07/27/2024 9:18 AM CDT Leonor Quan MD LAB POCT ORDERABLES - D EVICE Final Result Performing Organization Address City/[facility]/[place] [address] * POCT glucose (07/27/2024 7:41 AM CDT) [facility] Glucose, POC 157 70 - 199 mg/dL Blood 07/27/2024 7:41 AM CDT 07/27/2024 7:41 AM CDT Leonor Quan MD LAB POCT ORDERABLES - D EVICE Final Result Performing Organization Address City/[facility]/ZIP Co de Phone Number [facility] [place] [address] * Potassium, whole blood (07/27/2024 7:41 AM CDT) Potassium, bld 4.2 3.3 - 4.9 mmol/L Blood 07/27/2024 7:41 AM CDT 07/27/2024 7:46 AM CDT Narrative [facility] - 07/27/2024 7:49 AM CDT While on Bumex infusion Mala Pineda NP LAB BLOOD ORDERABLES Final R esult [facility] [place] [address] * Critical Care (07/27/2024 7:22 AM CDT) [...] plan with the ICU team and other medical/programmer analyst consultant staff, making frequent assessments and decisions [...] * POCT glucose (07/27/2024 6:57 AM CDT) [facility] Glucose, POC 101 70 - 199 mg/dL Blood 07/27/2024 6:57 AM CDT 07/27/2024 6:57 AM CDT us Leonor Quan MD LAB POCT ORDERABLES - D EVICE Final Result [facility] [place] [address] * POCT glucose (07/27/2024 6:13 AM CDT) [facility] Glucose, POC 93 70 - 199 mg/dL Blood 07/27/2024 6:13 AM CDT 07/27/2024 6:13 AM CDT us Leonor Quan MD LAB POCT ORDERABLES - D EVICE Final Result Performing Organization Address [facility] Co de Phone Number [facility] [place] [address] * (ABNORMAL) Hemoglobin total, central venous (07/27/2024 3:58 AM CDT) [facility] Hemoglobin total, CV 8.7(L) 13.0 - 17.5 g/dL Blood 07/27/2024 3:58 AM CDT 07/27/2024 4:06 AM CDT us Amber KUHN LAB BLOOD ORDERABLES Fi nal Result Performing Organization Address City/[facility] Co de Phone Number [facility] [place] [address] * (ABNORMAL) Blood gas, arterial (07/27/2024 3:58 AM CDT) pH, Art 7.40 7.35 - 7.45 PCO2, Arterial 39 35 - 45 mmHg [facility] PO2, Arterial 103 83 - 108 mmHg [facility] HCO3 Art (Calculated) 25 20 - 30 mmol/L [facility] BE, art 0 mmol/L [facility] Comment: Interpretive Data No Reference Range Established Current Interpretive Data was last revised on 2017 O2 Sat Art (Measured) 99(H) 90 - 95 % [facility] Blood 07/27/2024 3:58 AM CDT 07/27/2024 4:06 AM CDT Leonor Quan MD LAB BLOOD ORDERABLES Fi nal Result Performing Organization Address [facility] Co de Phone Number [facility] [place] [address] * Oxyhemoglobin, central venous (07/27/2024 3:58 AM CDT) [facility] Oxyhemoglobin, CV 60.5 % Comment: Interpretive Data No reference range established. Current interpretive data was last revised 2020. Blood 07/27/2024 3:58 AM CDT 07/27/2024 4:06 AM CDT Leonor Quan MD LAB BLOOD ORDERABLES Fi nal Result Performing Organization Address City/[facility] Co de Phone Number [facility] [place] [address] * Potassium, whole blood (07/27/2024 3:58 AM CDT) Pathologist [facility] Potassium, bld 4.0 3.3 - 4.9 mmol/L Blood 07/27/2024 3:58 AM CDT 07/27/2024 4:06 AM CDT Narrative [facility] - 07/27/2024 4:14 AM CDT While on Bumex infusion Mala Krauseor ASSET COORDINATOR LAB BLOOD ORDERABLES Final R esult Performing Organization Address City/[facility]/ZIP Co de Phone Number [facility] [place] [address] * POCT glucose (07/27/2024 3:55 AM CDT) Glucose, POC 115 70 - 199 mg/dL Blood 07/27/2024 3:55 AM CDT 07/27/2024 3:55 AM CDT Leonor Quan MD LAB POCT ORDERABLES - D EVICE Final Result Performing Organization Address [facility] Co de Phone Number [facility] [place] [address] * POCT glucose (07/27/2024 2:30 AM CDT) Glucose, POC 125 70 - 199 mg/dL Blood 07/27/2024 2:30 AM CDT 07/27/2024 2:30 AM CDT Leonor Quan MD LAB POCT ORDERABLES - D EVICE Final Result Performing Organization Address [facility] Co de Phone Number [facility] [place] [address] * POCT glucose (07/27/2024 12:09 AM CDT) Glucose, POC 123 70 - 199 mg/dL Blood 07/27/2024 12:0 9 AM CDT 07/27/2024 12:09 AM CDT Leonor Quan MD LAB POCT ORDERABLES - D EVICE Final Result Performing Organization Address City/[facility]/ZIP Co de Phone Number [facility] [place] [address] * eGFR (07/27/2024 12:03 AM CDT) eGFR [...] AM CDT 07/27/2024 12:27 AM CDT us Amber KUHN LAB BLOOD ORDERABLES Fi nal Result [facility] Department [place] [address] * (ABNORMAL) Hemoglobin total, central venous (07/27/2024 12:03 AM CDT) Hemoglobin total, CV 8.3(L) 13.0 - 17.5 g/dL Blood 07/27/2024 12:0 3 AM CDT 07/27/2024 12:20 AM CDT Amber KUHN LAB BLOOD ORDERABLES Fi nal Result Performing Organization Address [facility] Co de Phone Number [facility] [place] [address] * (ABNORMAL) Blood gas, arterial (07/27/2024 12:03 AM CDT) pH, Art 7.39 7.35 - 7.45 PCO2, Arterial 40 35 - 45 mmHg [facility] PO2, Arterial 161(H) 83 - 108 mmHg [facility] HCO3 Art (Calculated) 25 20 - 30 mmol/L [facility] BE, art -1 mmol/L [facility] Comment: Interpretive Data No Reference Range Established Current Interpretive Data was last revised on 2017 O2 Sat Art (Measured) 100(H) 90 - 95 % [facility] Blood 07/27/2024 12:0 3 AM CDT 07/27/2024 12:20 AM CDT Leonor Quan MD LAB BLOOD ORDERABLES Fi nal Result Performing Organization Address [facility] Co de Phone Number [facility] [place] [address] * Oxyhemoglobin, central venous (07/27/2024 12:03 AM CDT) Pathologist [facility] Oxyhemoglobin, CV 66.5 % Comment: Interpretive Data No reference range established. Current interpretive data was last revised 2020. Blood 07/27/2024 12:0 3 AM CDT 07/27/2024 12:20 AM CDT Leonor Quan MD LAB BLOOD ORDERABLES Fi nal Result Performing Organization Address City/[facility] Co de Phone Number [facility] [place] [address] * Potassium, whole blood (07/27/2024 12:03 AM CDT) Pathologist [facility] Potassium, bld 4.2 3.3 - 4.9 mmol/L Blood 07/27/2024 12:0 3 AM CDT 07/27/2024 12:20 AM CDT Narrative [facility] - 07/27/2024 12:34 AM CDT While on Bumex infusion Mala Tonsor ASSET COORDINATOR LAB BLOOD ORDERABLES Final R esult [facility] [place] [address] * Phosphorus (07/27/2024 12:03 AM CDT) [facility] Phosphorus, pl 3.0 2.3 - 4.5 mg/dL Blood 07/27/2024 12:0 3 AM CDT 07/27/2024 12:27 AM CDT Leonor Quan MD LAB BLOOD ORDERABLES Fi nal Result Performing Organization Address City/[facility]/ZIP Co de Phone Number [facility] [place] [address] * Magnesium (07/27/2024 12:03 AM CDT) [facility] Magnesium 1.9 1.4 - 2.5 mg/dL Blood 07/27/2024 12:0 3 AM CDT 07/27/2024 12:27 AM CDT Leonor Quan MD LAB BLOOD ORDERABLES Fi nal Result [facility] [place] [address] * (ABNORMAL) Basic metabolic panel (07/27/2024 12:03 AM CDT) Pathologist [facility] Sodium 138 135 - 145 mmol/L Potassium, pl 4.4 3.3 - 4.9 mmol/L [facility] Chloride 103 97 - 110 mmol/L [facility] CO2 26 22 - 32 mmol/L [facility] Anion gap 9 2 - 15 mmol/L [facility] BUN 38(H) 6 - 25 mg/dL [facility] Creatinine 1.08 0.80 - 1.30 mg/dL [facility] Glucose 153 70 - 199 mg/dL [facility] Comment: Interpretive Data Fasting glucose >/= 126 [...] 2022. Calcium 8.6 8.5 - 10.3 mg/dL [facility] Blood 07/27/2024 12:0 3 AM CDT 07/27/2024 12:27 AM CDT us Leonor Quan MD LAB BLOOD ORDERABLES Fi nal Result [facility] [place] [address] * (ABNORMAL) CBC without differential (07/27/2024 12:03 AM CDT) [facility] WBC 11.2(H) 3.8 - 9.9 K/cumm Hgb 8.1(L) 13.0 - 17.5 g/dL [facility] Hct 25.5(L) 38.9 - 50.3 % [facility] Plt 62(L) 150 - 400 K/cumm [facility] MPV 10.0 9.1 - 12.3 fL [facility] RBC 3.04(L) 4.30 - 5.80 M/cumm [facility] MCV 83.9 81.3 - 96.4 fL [facility] MCH 26.6(L) 27.1 - 33.3 pg [facility] MCHC 31.8(L) 32.3 - 35.7 g/dL [facility] RDW CV 16.7(H) 11.1 - 14.9 % [facility] RDW SD 50.9(H) 35.7 - 48.1 fL [facility] NRBC abs 0.00 0.00 - 0.01 K/cumm [facility] Blood 07/27/2024 12:0 3 AM CDT 07/27/2024 12:27 AM CDT Leonor Quan MD LAB BLOOD ORDERABLES Fi nal Result Performing Organization Address City/[facility]/ZIP Co de Phone Number [facility] [place] [address] * POCT glucose (07/26/2024 11:09 PM CDT) Glucose, POC 114 70 - 199 mg/dL Blood 07/26/2024 11:0 9 PM CDT 07/26/2024 11:09 PM CDT Leonor Quan MD LAB POCT ORDERABLES - D EVICE Final Result [facility] [place] [address] * POCT glucose (07/26/2024 10:09 PM CDT) Glucose, POC 142 70 - 199 mg/dL Blood 07/26/2024 10:0 9 PM CDT 07/26/2024 10:09 PM CDT Leonor Quan MD LAB POCT ORDERABLES - D EVICE Final Result [facility] Department [place] [address] * POCT glucose (07/26/2024 8:55 PM CDT) Glucose, POC 150 70 - 199 mg/dL Blood 07/26/2024 8:55 PM CDT 07/26/2024 8:55 PM CDT us Leonor Quan MD LAB POCT ORDERABLES - D EVICE Final Result Performing Organization Address [facility] de Phone Number [facility] Department [place] [address] * XR Chest 1 View (07/26/2024 8:38 [...] radiograph Procedure Note Altagracia Stafford MD - 09/19/2024 EXAMINATION: 1 view chest radiograph IMPRESSION: The [...] signed by: Altagracia Stafford M.D. Mala Pineda NP IMG XR PROCEDURES Final Resu lt * POCT glucose (07/26/2024 8:02 PM CDT) Glucose, POC 94 70 - 199 mg/dL Blood 07/26/2024 8:02 PM CDT 07/26/2024 8:02 PM CDT Leonor Quan MD LAB POCT ORDERABLES - D EVICE Final Result [facility] [place] [address] * (ABNORMAL) Hemoglobin total, central venous (07/26/2024 7:04 PM CDT) Hemoglobin total, CV 7.9(L) 13.0 - 17.5 g/dL Blood 07/26/2024 7:04 PM CDT 07/26/2024 7:11 PM CDT Amber KUHN LAB BLOOD ORDERABLES Fi nal Result [facility] Department [place] [address] * Oxyhemoglobin, central venous (07/26/2024 7:04 PM CDT) Oxyhemoglobin, CV 67.3 % Comment: Interpretive Data No reference range established. Current interpretive data was last revised 2020. Blood 07/26/2024 7:04 PM CDT 07/26/2024 7:11 PM CDT Leonor Quan MD LAB BLOOD ORDERABLES Fi nal Result Performing Organization Address [facility] de Phone Number [facility] [place] [address] * (ABNORMAL) Blood gas, arterial (07/26/2024 7:04 PM CDT) pH, Art 7.37 7.35 - 7.45 PCO2, Arterial 40 35 - 45 mmHg [facility] PO2, Arterial 94 83 - 108 mmHg [facility] HCO3 Art (Calculated) 24 20 - 30 mmol/L [facility] BE, art -2 mmol/L [facility] Comment: Interpretive Data No Reference Range Established Current Interpretive Data was last revised on 2017 O2 Sat Art (Measured) 98(H) 90 - 95 % [facility] Blood 07/26/2024 7:04 PM CDT 07/26/2024 7:11 PM CDT Leonor Quan MD LAB BLOOD ORDERABLES Fi nal Result Performing Organization Address [facility] Co de Phone Number [facility] [place] [address] * Potassium, whole blood (07/26/2024 7:04 PM CDT) Potassium, bld 4.1 3.3 - 4.9 mmol/L Blood 07/26/2024 7:04 PM CDT 07/26/2024 7:11 PM CDT Narrative [facility] - 07/26/2024 7:18 PM CDT While on Bumex infusion Mala Pineda NP LAB BLOOD ORDERABLES Final R esult Performing Organization Address [facility] Co de Phone Number [facility] [place] [address] * POCT glucose (07/26/2024 6:57 PM CDT) Glucose, POC 95 70 - 199 mg/dL Blood 07/26/2024 6:57 PM CDT 07/26/2024 6:57 PM CDT Leonor Quan MD LAB POCT ORDERABLES - D EVICE Final Result Performing Organization Address [facility] Co de Phone Number [facility] [place] [address] * Critical Care (07/26/2024 6:53 PM CDT) [...] plan with the ICU team and other medical/programmer analyst consultant staff, making frequent assessments and decisions [...] time documenting in the medical record Mala Edwin ASSET COORDINATOR IN CLINIC/BEDSIDE ORDERABLES Final Result * POCT glucose (07/26/2024 6:04 PM CDT) Glucose, POC 109 70 - 199 mg/dL Blood 07/26/2024 6:04 PM CDT 07/26/2024 6:04 PM CDT Result [facility] Leonor Quan MD LAB POCT ORDERABLES - D EVICE Final Result Performing Organization Address [facility] de Phone Number [facility] [place] [address] * POCT glucose (07/26/2024 4:57 PM CDT) Glucose, POC 117 70 - 199 mg/dL Blood 07/26/2024 4:57 PM CDT 07/26/2024 4:57 PM CDT Result [facility] Leonor Quan MD LAB POCT ORDERABLES - D EVICE Final Result Performing Organization Address [facility] de Phone Number [facility] [place] [address] * POCT glucose (07/26/2024 4:03 PM CDT) Glucose, POC 113 70 - 199 mg/dL Blood 07/26/2024 4:03 PM CDT 07/26/2024 4:03 PM CDT Leonor Quan MD LAB POCT ORDERABLES - D EVICE Final Result Performing Organization Address [facility] Co de Phone Number [facility] [place] [address] * Oxyhemoglobin, pulmonary artery (07/26/2024 3:19 PM CDT) Oxyhemoglobin, PA 60.4 % Comment: Interpretive Data No reference range established. Current interpretive data was last revised 2020. Blood 07/26/2024 3:19 PM CDT 07/26/2024 3:26 PM CDT Amber KUHN LAB BLOOD ORDERABLES Fi nal Result Performing Organization Address [facility] de Phone Number [facility] [place] [address] * (ABNORMAL) Hemoglobin total, pulmonary artery (07/26/2024 3:19 PM CDT) Hemoglobin total, PA 8.3(L) 13.0 - 17.5 g/dL Blood 07/26/2024 3:19 PM CDT 07/26/2024 3:26 PM CDT us Amber KUHN LAB BLOOD ORDERABLES Fi nal Result Performing Organization Address [facility] de Phone Number [facility] [place] [address] * POCT glucose (07/26/2024 3:02 PM CDT) Glucose, POC 136 70 - 199 mg/dL Blood 07/26/2024 3:02 PM CDT 07/26/2024 3:02 PM CDT Leonor Quan MD LAB POCT ORDERABLES - D EVICE Final Result Performing Organization Address [facility] Co de Phone Number [facility] [place] [address] * POCT glucose (07/26/2024 2:03 PM CDT) Glucose, POC 167 70 - 199 mg/dL Blood 07/26/2024 2:03 PM CDT 07/26/2024 2:03 PM CDT Leonor Quan MD LAB POCT ORDERABLES - [place] [address] * (ABNORMAL) Hemoglobin total, central venous (07/26/2024 2:03 PM CDT) Hemoglobin total, CV 8.6(L) 13.0 - 17.5 g/dL Blood 07/26/2024 2:03 PM CDT 07/26/2024 7:11 PM CDT Amber KUHN LAB BLOOD ORDERABLES Fi nal Result Performing Organization Address [facility] Co de Phone Number [facility] [place] [address] * Oxyhemoglobin, central venous (07/26/2024 2:03 PM CDT) Pathologist [facility] Oxyhemoglobin, CV 61.0 % Comment: Interpretive Data No reference range established. Current interpretive data was last revised 2020. Blood 07/26/2024 2:03 PM CDT 07/26/2024 7:11 PM CDT Leonor Quan MD LAB BLOOD ORDERABLES Fi nal Result Performing Organization Address City/[facility]/ZIP Co de Phone Number [facility] [place] [address] * POCT glucose (07/26/2024 12:56 PM CDT) Glucose, POC 155 70 - 199 mg/dL Blood 07/26/2024 12:5 6 PM CDT 07/26/2024 12:56 PM CDT Leonor Quan MD LAB POCT ORDERABLES - D EVICE Final Result Performing Organization Address City/[facility] Co de Phone Number [facility] [place] [address] * POCT glucose (07/26/2024 12:03 PM CDT) Glucose, POC 154 70 - 199 mg/dL Blood 07/26/2024 12:0 3 PM CDT 07/26/2024 12:03 PM CDT Leonor Quan MD LAB POCT ORDERABLES - D EVICE Final Result Performing Organization Address City/[facility] Co de Phone Number [facility] [place] [address] * POCT glucose (07/26/2024 10:49 AM CDT) Glucose, POC 170 70 - 199 mg/dL Blood 07/26/2024 10:4 9 AM CDT 07/26/2024 10:49 AM CDT Leonor Quan MD LAB POCT ORDERABLES - D EVICE Final Result Performing Organization Address City/[facility] Co de Phone Number [facility] [place] [address] * POCT glucose (07/26/2024 10:01 AM CDT) Glucose, POC 145 70 - 199 mg/dL Blood 07/26/2024 10:0 1 AM CDT 07/26/2024 10:01 AM CDT Leonor Quan MD LAB POCT ORDERABLES - D EVICE Final Result Performing Organization Address [facility] de Phone Number [facility] [place] [address] * POCT glucose (07/26/2024 8:47 AM CDT) Glucose, POC 165 70 - 199 mg/dL Blood 07/26/2024 8:47 AM CDT 07/26/2024 8:47 AM CDT Leonor Quan MD LAB POCT ORDERABLES - D EVICE Final Result Performing Organization Address [facility] Phone Number [facility] [place] [address] * Oxyhemoglobin, pulmonary artery (07/26/2024 8:06 AM CDT) Oxyhemoglobin, PA 66.4 % Comment: Interpretive Data No reference range established. Current interpretive data was last revised 2020. Blood 07/26/2024 8:06 AM CDT 07/26/2024 8:15 AM CDT Amber KUHN LAB BLOOD ORDERABLES Fi nal Result Performing Organization Address [facility] de Phone Number [facility] [place] [address] * (ABNORMAL) Hemoglobin total, pulmonary artery (07/26/2024 8:06 AM CDT) Hemoglobin total, PA 9.8(L) 13.0 - 17.5 g/dL Blood 07/26/2024 8:06 AM CDT 07/26/2024 8:15 AM CDT us Amber UKHN LAB BLOOD ORDERABLES Fi nal Result Performing Organization Address [facility]/ZIP Co de Phone Number [facility] [place] [address] * POCT glucose (07/26/2024 7:46 AM CDT) Glucose, POC 175 70 - 199 mg/dL Blood 07/26/2024 7:46 AM CDT 07/26/2024 7:46 AM CDT us Leonor Quan MD LAB POCT ORDERABLES - D EVICE Final Result Performing Organization Address [facility] Co de Phone Number [facility] [place] [address] * Critical Care (07/26/2024 6:37 AM CDT) [...] plan with the ICU team and other medical/programmer analyst consultant staff, making frequent assessments and decisions [...] Final Result Performing Organization Address [facility] Phone Number [facility] [place] [address] * (ABNORMAL) Hemoglobin total, central venous (07/26/2024 4:14 AM CDT) Hemoglobin total, CV 9.3(L) 13.0 - 17.5 g/dL Blood 07/26/2024 4:14 AM CDT 07/26/2024 4:22 AM CDT Amber KUHN LAB BLOOD ORDERABLES Fi nal Result Performing Organization Address [facility] de Phone Number [facility] [place] [address] * Oxyhemoglobin, central venous (07/26/2024 4:14 AM CDT) Oxyhemoglobin, CV 67.0 % Comment: Interpretive Data No reference range established. Current interpretive data was last revised 2020. Blood 07/26/2024 4:14 AM CDT 07/26/2024 4:22 AM CDT Leonor Quan MD LAB BLOOD ORDERABLES Fi nal Result Performing Organization Address [facility]/State/ZIP Co de Phone Number [facility] [place] [address] * (ABNORMAL) Blood gas, arterial (07/26/2024 4:14 AM CDT) pH, Art 7.37 7.35 - 7.45 PCO2, Arterial 36 35 - 45 mmHg [facility] PO2, Arterial 151(H) 83 - 108 mmHg [facility] HCO3 Art (Calculated) 22 20 - 30 mmol/L [facility] BE, art -4 mmol/L [facility] Comment: Interpretive Data No Reference Range Established Current Interpretive Data was last revised on 2017 O2 Sat Art (Measured) 100(H) 90 - 95 % [facility] Blood 07/26/2024 4:14 AM CDT 07/26/2024 4:22 AM CDT Leonor Quan MD LAB BLOOD ORDERABLES Fi nal Result Performing Organization Address [facility]/ZIP Co de Phone Number [facility] [place] [address] * POCT glucose (07/26/2024 4:12 AM CDT) Glucose, POC 150 70 - 199 mg/dL Blood 07/26/2024 4:12 AM CDT 07/26/2024 4:12 AM CDT Leonor Quan MD LAB POCT ORDERABLES - D EVICE Final Result [facility] [place] [address] * POCT glucose (07/26/2024 3:15 AM CDT) Glucose, POC 127 70 - 199 mg/dL Blood 07/26/2024 3:15 AM CDT 07/26/2024 3:15 AM CDT Leonor Quan MD LAB POCT ORDERABLES - D EVICE Final Result Performing Organization Address [facility] Co de Phone Number GILLIAN [facility] [place] [address] * POCT glucose (07/26/2024 2:04 AM CDT) Glucose, POC 116 70 - 199 mg/dL Blood 07/26/2024 2:04 AM CDT 07/26/2024 2:04 AM CDT Leonor Quan MD LAB POCT ORDERABLES - D EVICE Final Result Performing Organization Address [facility] de Phone Number GILLIAN [facility] [place] [address] * POCT glucose (07/26/2024 1:15 AM CDT) Glucose, POC 100 70 - 199 mg/dL Blood 07/26/2024 1:15 AM CDT 07/26/2024 1:15 AM CDT Leonor Quan MD LAB POCT ORDERABLES - D EVICE Final Result Performing Organization Address [facility] de Phone Number GILLIAN [facility] [place] [address] * eGFR (07/26/2024 12:33 AM CDT) eGFR 63 >=60 mL/min/1. 73 m2 Comment: [...] KUHN LAB BLOOD ORDERABLES Fi nal Result [facility] Department [place] [address] * (ABNORMAL) Blood gas, arterial (07/26/2024 12:33 AM CDT) pH, Art 7.34(L) 7.35 - 7.45 PCO2, Arterial 41 35 - 45 mmHg [facility] PO2, Arterial 139(H) 83 - 108 mmHg [facility] HCO3 Art (Calculated) 23 20 - 30 mmol/L [facility] BE, art -3 mmol/L [facility] Comment: Interpretive Data No Reference Range Established Current Interpretive Data was last revised on 2017 O2 Sat Art (Measured) 99(H) 90 - 95 % [facility] Blood 07/26/2024 12:3 3 AM CDT 07/26/2024 12:40 AM CDT Leonor Quan MD LAB BLOOD ORDERABLES Fi nal Result Performing Organization Address City/[facility] Co de Phone Number [facility] [place] [address] * Oxyhemoglobin, central venous (07/26/2024 12:33 AM CDT) Oxyhemoglobin, CV 69.8 % Comment: Interpretive Data No reference range established. Current interpretive data was last revised 2020. Blood 07/26/2024 12:3 3 AM CDT 07/26/2024 12:40 AM CDT Leonor Quan MD LAB BLOOD ORDERABLES Fi nal Result Performing Organization Address [facility] de Phone Number [facility] [place] [address] * Phosphorus (07/26/2024 12:33 AM CDT) Phosphorus, pl 3.9 2.3 - 4.5 mg/dL Blood 07/26/2024 12:3 3 AM CDT 07/26/2024 12:53 AM CDT Leonor Quan MD LAB BLOOD ORDERABLES Fi nal Result Performing Organization Address City/[facility] Co de Phone Number [facility] [place] [address] * Magnesium (07/26/2024 12:33 AM CDT) Magnesium 2.1 1.4 - 2.5 mg/dL Blood 07/26/2024 12:3 3 AM CDT 07/26/2024 12:53 AM CDT Leonor Quan MD LAB BLOOD ORDERABLES Fi nal Result Performing Organization Address City/[facility] Co de Phone Number [facility] [place] [address] * (ABNORMAL) Basic metabolic panel (07/26/2024 12:33 AM CDT) Pathologist [facility] Sodium 140 135 - 145 mmol/L Potassium, pl 4.8 3.3 - 4.9 mmol/L [facility] Chloride 107 97 - 110 mmol/L [facility] CO2 22 22 - 32 mmol/L [facility] Anion gap 11 2 - 15 mmol/L [facility] BUN 27(H) 6 - 25 mg/dL [facility] Creatinine 1.22 0.80 - 1.30 mg/dL [facility] Glucose 98 70 - 199 mg/dL [facility] Comment: Interpretive Data Fasting glucose >/= 126 [...] 2022. Calcium 8.5 8.5 - 10.3 mg/dL [facility] Blood 07/26/2024 12:3 3 AM CDT 07/26/2024 12:53 AM CDT Leonor Quna MD LAB BLOOD ORDERABLES Fi nal Result [facility] Department [place] [address] * (ABNORMAL) CBC without differential (07/26/2024 12:33 AM CDT) Pathologist [facility] WBC 14.9(H) 3.8 - 9.9 K/cumm Hgb 8.2(L) 13.0 - 17.5 g/dL [facility] Hct 25.1(L) 38.9 - 50.3 % [facility] Plt 77(L) 150 - 400 K/cumm [facility] MPV 9.8 9.1 - 12.3 fL [facility] RBC 3.05(L) 4.30 - 5.80 M/cumm [facility] MCV 82.3 81.3 - 96.4 fL [facility] MCH 26.9(L) 27.1 - 33.3 pg [facility] MCHC 32.7 32.3 - 35.7 g/dL [facility] RDW CV 16.4(H) 11.1 - 14.9 % [facility] RDW SD 49.4(H) 35.7 - 48.1 fL [facility] NRBC abs 0.00 0.00 - 0.01 K/cumm [facility] Blood 07/26/2024 12:3 3 AM CDT 07/26/2024 12:45 AM CDT Leonor Quan MD LAB BLOOD ORDERABLES Fi nal Result [facility] [place] [address] * POCT glucose (07/26/2024 12:28 AM CDT) Glucose, POC 88 70 - 199 mg/dL Blood 07/26/2024 12:2 8 AM CDT 07/26/2024 12:28 AM CDT Leonor Quan MD LAB POCT ORDERABLES - D EVICE Final Result [facility] [place] [address] * POCT glucose (07/25/2024 10:30 PM CDT) Glucose, POC 111 70 - 199 mg/dL Blood 07/25/2024 10:3 0 PM CDT 07/25/2024 10:30 PM CDT us Leonor Quan MD LAB POCT ORDERABLES - D EVICE Final Result GILLIAN LYNN [facility] [place] [address] * XR Chest 1 View (07/25/2024 9:17 [...] Electronically signed by: Roger Rodríguez M.D. Mala Tonsor ASSET COORDINATOR IMG XR PROCEDURES Final Resu lt * (ABNORMAL) Hemoglobin total, central venous (07/25/2024 8:07 PM CDT) Pathologist [facility] Hemoglobin total, CV 8.4(L) 13.0 - 17.5 g/dL Blood 07/25/2024 8:07 PM CDT 07/25/2024 8:16 PM CDT Leonor Quan MD LAB BLOOD ORDERABLES Fi nal Result Performing Organization Address [facility] Co de Phone Number [facility] [place] [address] * (ABNORMAL) Blood gas, arterial (07/25/2024 8:07 PM CDT) Pathologist [facility] pH, Art 7.32(L) 7.35 - 7.45 PCO2, Arterial 41 35 - 45 mmHg [facility] PO2, Arterial 73(L) 83 - 108 mmHg [facility] HCO3 Art (Calculated) 22 20 - 30 mmol/L [facility] BE, art -5 mmol/L [facility] Comment: Interpretive Data No Reference Range Established Current Interpretive Data was last revised on 2017 O2 Sat Art (Measured) 94 90 - 95 % [facility] Blood 07/25/2024 8:07 PM CDT 07/25/2024 8:16 PM CDT Leonor Quan MD LAB BLOOD ORDERABLES Fi nal Result Performing Organization Address [facility] Co de Phone Number [facility] [place] [address] * (ABNORMAL) Lactate (07/25/2024 8:07 PM CDT) Pathologist [facility] Lactate 3.6(H) 0.7 - 2.0 mmol/L Blood 07/25/2024 8:07 PM CDT 07/25/2024 8:23 PM CDT Leonor Quan MD LAB BLOOD ORDERABLES Fi nal Result Performing Organization Address [facility] Co de Phone Number [facility] [place] [address] * Oxyhemoglobin, central venous (07/25/2024 8:07 PM CDT) Oxyhemoglobin, CV 63.6 % Comment: Interpretive Data No reference range established. Current interpretive data was last revised 2020. Blood 07/25/2024 8:07 PM CDT 07/25/2024 8:16 PM CDT Leonor Quan MD LAB BLOOD ORDERABLES Fi nal Result Performing Organization Address [facility] Co de Phone Number [facility] [place] [address] * Potassium, whole blood (07/25/2024 8:07 PM CDT) Potassium, bld 4.7 3.3 - 4.9 mmol/L Blood 07/25/2024 8:07 PM CDT 07/25/2024 8:16 PM CDT Amber KUHN LAB BLOOD ORDERABLES Fi nal Result Performing Organization Address [facility] Co de Phone Number [facility] [place] [address] * POCT glucose (07/25/2024 8:05 PM CDT) Glucose, POC 119 70 - 199 mg/dL Blood 07/25/2024 8:05 PM CDT 07/25/2024 8:05 PM CDT Leonor Quan MD LAB POCT ORDERABLES - D EVICE Final Result GILLIAN BJ [facility] [place] [address] * Critical Care (07/25/2024 6:40 PM CDT) [...] plan with the ICU team and other medical/programmer analyst consultant staff, making frequent assessments and decisions [...] ORDERABLES - D EVICE Final Result [facility] [place] [address] * POCT glucose (07/25/2024 5:03 PM CDT) Glucose, POC 117 70 - 199 mg/dL Blood 07/25/2024 5:03 PM CDT 07/25/2024 5:03 PM CDT Leonor Quan MD LAB POCT ORDERABLES - D EVICE Final Result Performing Organization Address City/[facility] Co de Phone Number [place] [address] * Critical Result Callback Chemistry (07/25/2024 5:02 PM CDT) Date Notified 20240725 Time Notified 1754 [facility] TestName Lactate GILLIAN [facility] Called/Read Back Kenny FREN[facility] Credentials RN GILLIAN [facility] Called By DVB GILLIAN [facility] Blood 07/25/2024 5:02 PM CDT 07/25/2024 5:23 PM CDT Amber KUHN LAB BLOOD ORDERABLES Fi nal Result Performing Organization Address City/[facility]/ZIP Co de Phone Number [facility] [place] [address] * (ABNORMAL) Hemoglobin total, central venous (07/25/2024 5:02 PM CDT) Hemoglobin total, CV 8.2(L) 13.0 - 17.5 g/dL Blood 07/25/2024 5:02 PM CDT 07/25/2024 5:12 PM CDT Amber KUHN LAB BLOOD ORDERABLES Fi nal Result [facility] [place] [address] * (ABNORMAL) Blood gas, arterial (07/25/2024 5:02 PM CDT) [facility] pH, Art 7.30(L) 7.35 - 7.45 PCO2, Arterial 39 35 - 45 mmHg [facility] PO2, Arterial 86 83 - 108 mmHg [facility] HCO3 Art (Calculated) 20 20 - 30 mmol/L [facility] BE, art -6 mmol/L [facility] Comment: Interpretive Data No Reference Range Established Current Interpretive Data was last revised on 2017 O2 Sat Art (Measured) 97(H) 90 - 95 % [facility] Blood 07/25/2024 5:02 PM CDT 07/25/2024 5:12 PM CDT Leonor Quan MD LAB BLOOD ORDERABLES Fi nal Result Performing Organization Address City/[facility]/ZIP Co de Phone Number [facility] [place] [address] * Oxyhemoglobin, central venous (07/25/2024 5:02 PM CDT) [facility] Oxyhemoglobin, CV 68.7 % Comment: Interpretive Data No reference range established. Current interpretive data was last revised 2020. Blood 07/25/2024 5:02 PM CDT 07/25/2024 5:12 PM CDT Leonor Quan MD LAB BLOOD ORDERABLES Fi nal Result [facility] [place] [address] * (ABNORMAL) Lactate (07/25/2024 5:02 PM CDT) Lactate 5.1(C) 0.7 - 2.0 mmol/L Blood 07/25/2024 5:02 PM CDT 07/25/2024 5:23 PM CDT Leonor Quan MD LAB BLOOD ORDERABLES Fi nal Result Performing Organization Address City/[facility] Co de Phone Number [facility] [place] [address] * Potassium, whole blood (07/25/2024 5:02 PM CDT) Potassium, bld 4.5 3.3 - 4.9 mmol/L Blood 07/25/2024 5:02 PM CDT 07/25/2024 5:12 PM CDT Amber KUHN LAB BLOOD ORDERABLES Fi nal Result Performing Organization Address City/[facility] Co de Phone Number [facility] [place] [address] * Potassium, whole blood (07/25/2024 3:25 PM CDT) [facility] Potassium, bld 4.5 3.3 - 4.9 mmol/L Blood 07/25/2024 3:25 PM CDT 07/25/2024 3:33 PM CDT Amber KUHN LAB BLOOD ORDERABLES Fi nal Result Performing Organization Address City/[facility] Co de Phone Number [facility] [place] [address] * POCT glucose (07/25/2024 3:24 PM CDT) Glucose, POC 107 70 - 199 mg/dL Blood 07/25/2024 3:24 PM CDT 07/25/2024 3:24 PM CDT Leonor Quan MD LAB POCT ORDERABLES - D EVICE Final Result Performing Organization Address City/[facility] Co de Phone Number [facility] [place] [address] * (ABNORMAL) Blood gas, arterial (07/25/2024 1:13 PM CDT) pH, Art 7.30(L) 7.35 - 7.45 PCO2, Arterial 38 35 - 45 mmHg [facility] PO2, Arterial 94 83 - 108 mmHg [facility] HCO3 Art (Calculated) 19(L) 20 - 30 mmol/L [facility] BE, art -7 mmol/L [facility] Comment: Interpretive Data No Reference Range Established Current Interpretive Data was last revised on 2017 O2 Sat Art (Measured) 97(H) 90 - 95 % [facility] Blood 07/25/2024 1:13 PM CDT 07/25/2024 1:23 PM CDT Leonor Quan MD LAB BLOOD ORDERABLES Fi nal Result Performing Organization Address [facility] Co de Phone Number [facility] [place] [address] * Oxyhemoglobin, central venous (07/25/2024 1:13 PM CDT) Pathologist [facility] Oxyhemoglobin, CV 67.1 % Comment: Interpretive Data No reference range established. Current interpretive data was last revised 2020. Blood 07/25/2024 1:13 PM CDT 07/25/2024 1:23 PM CDT Leonor Quan MD LAB BLOOD ORDERABLES Fi nal Result Performing Organization Address City/[facility] Co de Phone Number [facility] [place] [address] * Oxyhemoglobin, pulmonary artery (07/25/2024 1:13 PM CDT) Oxyhemoglobin, PA 58.6 % Comment: Interpretive Data No reference range established. Current interpretive data was last revised 2020. Blood 07/25/2024 1:13 PM CDT 07/25/2024 1:23 PM CDT us Amber KUHN LAB BLOOD ORDERABLES Fi nal Result [facility] [place], [place] [id number] * POCT glucose (07/25/2024 12:40 PM CDT) Glucose, POC 117 70 - 199 mg/dL Blood 07/25/2024 12:4 0 PM CDT 07/25/2024 12:40 PM CDT us Leonor Quan MD LAB POCT ORDERABLES - D EVICE Final Result Performing Organization Address City/[facility]/ZIP Co de Phone Number [facility] [place] [address] * POCT glucose (07/25/2024 10:16 AM CDT) Glucose, POC 125 70 - 199 mg/dL Blood 07/25/2024 10:1 6 AM CDT 07/25/2024 10:16 AM CDT Leonor Quan MD LAB POCT ORDERABLES - D EVICE Final Result Performing Organization Address City/[facility]/ZIP Co de Phone Number [facility] [place] [address] * Critical Result Callback Chemistry (07/25/2024 10:13 AM CDT) Date Notified 20240725 Time Notified 1100 [facility] TestName Lactate [facility] Called/Read Back Mahesh Olson [facility] Credentials RN GILLIAN [facility] Called By tmp [facility] Blood 07/25/2024 10:1 3 AM CDT 07/25/2024 10:27 AM CDT Amber KUHN LAB BLOOD ORDERABLES Fi nal Result Performing Organization Address [facility] Co de Phone Number [facility] [place] [address] * (ABNORMAL) Blood gas, arterial (07/25/2024 10:13 AM CDT) pH, Art 7.29(L) 7.35 - 7.45 PCO2, Arterial 38 35 - 45 mmHg [facility] PO2, Arterial 71(L) 83 - 108 mmHg [facility] HCO3 Art (Calculated) 19(L) 20 - 30 mmol/L [facility] BE, art -8 mmol/L [facility] Comment: Interpretive Data No Reference Range Established Current Interpretive Data was last revised on 2017 O2 Sat Art (Measured) 93 90 - 95 % [facility] Blood 07/25/2024 10:1 3 AM CDT 07/25/2024 10:28 AM CDT Leonor Quan MD LAB BLOOD ORDERABLES Fi nal Result Performing Organization Address [facility] Co de Phone Number [facility] [place] [address] * Oxyhemoglobin, pulmonary artery (07/25/2024 10:13 AM CDT) Oxyhemoglobin, PA 48.0 % Comment: Interpretive Data No reference range established. Current interpretive data was last revised 2020. Blood 07/25/2024 10:1 3 AM CDT 07/25/2024 10:23 AM CDT Amber KUHN LAB BLOOD ORDERABLES Fi nal Result Performing Organization Address City/[facility] Co de Phone Number [facility] [place] [address] * (ABNORMAL) Lactate (07/25/2024 10:13 AM CDT) Lactate 5.6(C) 0.7 - 2.0 mmol/L Blood 07/25/2024 10:1 3 AM CDT 07/25/2024 10:27 AM CDT Leonor Quan MD LAB BLOOD ORDERABLES Fi nal Result Performing Organization Address [facility] Co de Phone Number [facility] [place] [address] * (ABNORMAL) Potassium, whole blood (07/25/2024 10:13 AM CDT) Pathologist [facility] Potassium, bld 5.2(H) 3.3 - 4.9 mmol/L Blood 07/25/2024 10:1 3 AM CDT 07/25/2024 10:28 AM CDT Amber KUHN LAB BLOOD ORDERABLES Fi nal Result Performing Organization Address [facility] Co de Phone Number [facility] [place] [address] * (ABNORMAL) POC Blood Gas and Chemistries, Arterial - (07/25/2024 8:02 AM CDT) pH, Art POC 7.26(L) 7.35 - 7.45 pCO2, Art POC 40 35 - 45 mmHg [facility] pO2, Art POC 131(H) 83 - 108 mmHg [facility] Na, POC 139 135 - 145 mmol/L [facility] K POC 5.6(H) 3.3 - 4.9 mmol/L [facility] Comment: Interpretive Data Not all point of care methods assess for hemolysis. Confirm with instrument and retest K+ if not consistent with clinical signs and symptoms. Current Interpretive Data was last revised on 2024. Cl, POC 110 97 - 110 mmol/L [facility] Ionized Ca, POC 4.75 4.50 - 5.10 mg/dL [facility] Glucose, POC 151 70 - 199 mg/dL [facility] Lactate, POC 5.2(C) 0.7 - 2.2 mmol/L [facility] SO2 (aliza) arterial 100(H) 90 - 95 % [facility] Base excess, POC -8.6 mmol/L [facility] HCO3, Art POC 18(L) 20 - 30 mmol/L [facility] Hct, POC 28.0(L) 41.4 - 51.6 % [facility] Total Hb, POC 9.3(L) 13.8 - 17.2 g/dL [facility] Blood 07/25/2024 8:02 AM CDT 07/25/2024 8:02 AM CDT Leonor Quan MD LAB POCT ORDERABLES - D EVICE Final Result Performing Organization Address City/[facility]/ZIP Co de Phone Number [facility] [place] [address] * POCT glucose (07/25/2024 6:53 AM CDT) [facility] Glucose, POC 139 70 - 199 mg/dL Blood 07/25/2024 6:53 AM CDT 07/25/2024 6:53 AM CDT Leonor Quan MD LAB POCT ORDERABLES - D EVICE Final Result [facility] [place] [address] * Critical Care (07/25/2024 6:35 AM CDT) [...] plan with the ICU team and other medical/programmer analyst consultant staff, making frequent assessments and decisions [...] D EVICE Final Result [facility] Department [place] [address] * (ABNORMAL) Potassium, whole blood (07/25/2024 4:42 AM CDT) Potassium, bld 5.0(H) 3.3 - 4.9 mmol/L Blood 07/25/2024 4:42 AM CDT 07/25/2024 4:56 AM CDT Leonor Quan MD LAB BLOOD ORDERABLES Fi nal Result Performing Organization Address City/[facility]/ZIP Co de Phone Number [facility] [place] [address] * Oxyhemoglobin, pulmonary artery (07/25/2024 4:42 AM CDT) Pathologist [facility] Oxyhemoglobin, PA 60.4 % Comment: Interpretive Data No reference range established. Current interpretive data was last revised 2020. Blood 07/25/2024 4:42 AM CDT 07/25/2024 4:56 AM CDT Result [facility] Amber KUHN LAB BLOOD ORDERABLES Fi nal Result Performing Organization Address [facility] [facility] Co de Phone Number [facility] [place] [address] * (ABNORMAL) Blood gas, arterial (07/25/2024 4:42 AM CDT) Pathologist [facility] pH, Art 7.26(L) 7.35 - 7.45 PCO2, Arterial 38 35 - 45 mmHg [facility] PO2, Arterial 144(H) 83 - 108 mmHg [facility] HCO3 Art (Calculated) 18(L) 20 - 30 mmol/L [facility] BE, art -9 mmol/L [facility] Comment: Interpretive Data No Reference Range Established Current Interpretive Data was last revised on 2017 O2 Sat Art (Measured) 99(H) 90 - 95 % [facility] Blood 07/25/2024 4:42 AM CDT 07/25/2024 4:56 AM CDT Result [facility] Leonor Quan MD LAB BLOOD ORDERABLES Fi nal Result GILLIAN LYNN [facility] [place] [address] * POCT glucose (07/25/2024 4:41 AM CDT) Pathologist [facility] Glucose, POC 167 70 - 199 mg/dL Blood 07/25/2024 4:41 AM CDT 07/25/2024 4:41 AM CDT us Leonor Quan MD LAB POCT ORDERABLES - D EVICE Final Result Performing Organization Address [facility] de Phone Number [facility] [place] [address] * eGFR (07/25/2024 4:38 AM CDT) [facility] eGFR 70 >=60 mL/min/1. 73 m2 Comment: [...] ORDERABLES Fi nal Result Performing Organization Address City/[facility] Co de Phone Number [facility] [place] [address] * Phosphorus (07/25/2024 4:38 AM CDT) Pathologist [facility] Phosphorus, pl 4.0 2.3 - 4.5 mg/dL Blood 07/25/2024 4:38 AM CDT 07/25/2024 5:11 AM CDT Leonor Quan MD LAB BLOOD ORDERABLES Fi nal Result Performing Organization Address [facility] Co de Phone Number [facility] [place] [address] * Magnesium (07/25/2024 4:38 AM CDT) Pathologist [facility] Magnesium 2.3 1.4 - 2.5 mg/dL Blood 07/25/2024 4:38 AM CDT 07/25/2024 5:11 AM CDT Leonor Quan MD LAB BLOOD ORDERABLES Fi nal Result Performing Organization Address City/[facility] Co de Phone Number [facility] [place] [address] * (ABNORMAL) Basic metabolic panel (07/25/2024 4:38 AM CDT) Pathologist [facility] Sodium 142 135 - 145 mmol/L Potassium, pl 5.4(H) 3.3 - 4.9 mmol/L [facility] Chloride 107 97 - 110 mmol/L [facility] CO2 20(L) 22 - 32 mmol/L [facility] Anion gap 15 2 - 15 mmol/L [facility] BUN 18 6 - 25 mg/dL [facility] Creatinine 1.12 0.80 - 1.30 mg/dL [facility] Glucose 168 70 - 199 mg/dL [facility] Comment: Interpretive Data Fasting glucose >/= 126 [...] 2022. Calcium 8.7 8.5 - 10.3 mg/dL [facility] Blood 07/25/2024 4:38 AM CDT 07/25/2024 5:11 AM CDT us Leonor Quan MD LAB BLOOD ORDERABLES Fi nal Result [facility] [place] [address] * (ABNORMAL) CBC without differential (07/25/2024 4:38 AM CDT) WBC 24.7(H) 3.8 - 9.9 K/cumm Hgb 9.0(L) 13.0 - 17.5 g/dL [facility] Hct 28.6(L) 38.9 - 50.3 % [facility] Plt 150 150 - 400 K/cumm [facility] MPV 10.6 9.1 - 12.3 fL [facility] RBC 3.36(L) 4.30 - 5.80 M/cumm [facility] MCV 85.1 81.3 - 96.4 fL [facility] MCH 26.8(L) 27.1 - 33.3 pg [facility] MCHC 31.5(L) 32.3 - 35.7 g/dL [facility] RDW CV 15.8(H) 11.1 - 14.9 % [facility] RDW SD 48.5(H) 35.7 - 48.1 fL [facility] NRBC abs 0.00 0.00 - 0.01 K/cumm [facility] Blood 07/25/2024 4:38 AM CDT 07/25/2024 5:11 AM CDT Leonor Quan MD LAB BLOOD ORDERABLES Fi nal Result [facility] [place] [address] * POCT glucose (07/25/2024 3:18 AM CDT) Glucose, POC 153 70 - 199 mg/dL Blood 07/25/2024 3:18 AM CDT 07/25/2024 3:18 AM CDT Leonor Quan MD LAB POCT ORDERABLES - D EVICE Final Result Performing Organization Address City/[facility] Co de Phone Number [facility] Department [place] [address] * (ABNORMAL) POC Blood Gas and Chemistries, Arterial - (07/25/2024 2:23 AM CDT) pH, Art POC 7.23(L) 7.35 - 7.45 pCO2, Art POC 45 35 - 45 mmHg [facility] pO2, Art POC 100 83 - 108 mmHg [facility] Na, POC 140 135 - 145 mmol/L [facility] K POC 5.0(H) 3.3 - 4.9 mmol/L [facility] Comment: Interpretive Data Not all point of care methods assess for hemolysis. Confirm with instrument and retest K+ if not consistent with clinical signs and symptoms. Current Interpretive Data was last revised on 2024. Cl, POC 110 97 - 110 mmol/L [facility] Ionized Ca, POC 4.86 4.50 - 5.10 mg/dL [facility] Glucose, POC 156 70 - 199 mg/dL [facility] Lactate, POC 5.4(C) 0.7 - 2.2 mmol/L [facility] SO2 (aliza) arterial 100(H) 90 - 95 % [facility] Base excess, POC -8.3 mmol/L [facility] HCO3, Art POC 19(L) 20 - 30 mmol/L [facility] Hct, POC 28.0(L) 41.4 - 51.6 % [facility] Total Hb, POC 9.3(L) 13.8 - 17.2 g/dL [facility] Blood 07/25/2024 2:23 AM CDT 07/25/2024 2:23 AM CDT Leonor Quan MD LAB POCT ORDERABLES - D EVICE Final Result Performing Organization Address City/[facility]/ZIP Co de Phone Number [facility] [place] [address] * POCT glucose (07/25/2024 1:07 AM CDT) Glucose, POC 155 70 - 199 mg/dL Blood 07/25/2024 1:07 AM CDT 07/25/2024 1:07 AM CDT Leonor Quan MD LAB POCT ORDERABLES - D EVICE Final Result [facility] [place] [address] * POCT glucose (07/25/2024 12:13 AM CDT) Glucose, POC 158 70 - 199 mg/dL Blood 07/25/2024 12:1 3 AM CDT 07/25/2024 12:13 AM CDT Leonor Quan MD LAB POCT ORDERABLES - D EVICE Final Result Performing Organization Address [facility] Co de Phone Number GILLIAN [facility] [place] [address] * POCT glucose (07/24/2024 10:48 PM CDT) Glucose, POC 175 70 - 199 mg/dL Blood 07/24/2024 10:4 8 PM CDT 07/24/2024 10:48 PM CDT Leonor Quan MD LAB POCT ORDERABLES - D EVICE Final Result Performing Organization Address [facility] Phone Number [place] [facility] [place] [address] * POCT glucose (07/24/2024 9:54 PM CDT) Glucose, POC 174 70 - 199 mg/dL Blood 07/24/2024 9:54 PM CDT 07/24/2024 9:54 PM CDT Leonor Quan MD LAB POCT ORDERABLES - D EVICE Final Result Performing Organization Address [facility] Co de Phone Number [facility] [place] [address] * POCT glucose (07/24/2024 8:59 PM CDT) Glucose, POC 180 70 - 199 mg/dL Blood 07/24/2024 8:59 PM CDT 07/24/2024 8:59 PM CDT Leonor Quan MD LAB POCT ORDERABLES - D EVICE Final Result Performing Organization Address [facility] Co de Phone Number [facility] [place] [address] * Oxyhemoglobin, pulmonary artery (07/24/2024 8:30 PM CDT) Oxyhemoglobin, PA 60.1 % Comment: Interpretive Data No reference range established. Current interpretive data was last revised 2020. Blood 07/24/2024 8:30 PM CDT 07/24/2024 8:41 PM CDT us Amber KUHN LAB BLOOD [place] [address] * (ABNORMAL) Lactate (07/24/2024 8:30 PM CDT) [facility] Lactate 2.8(H) 0.7 - 2.0 mmol/L Blood 07/24/2024 8:30 PM CDT 07/24/2024 8:47 PM CDT Leonor Quan MD LAB BLOOD ORDERABLES Fi nal Result Performing Organization Address City/[facility]/[place] [address] * (ABNORMAL) POCT glucose (07/24/2024 7:59 PM CDT) Glucose, POC 207(H) 70 - 199 mg/dL Blood 07/24/2024 7:59 PM CDT 07/24/2024 7:59 PM CDT Leonor Quan MD LAB POCT ORDERABLES - D EVICE Final Result Performing Organization Address City/[facility]/ZIP Co de Phone Number [facility] [place] [address] * (ABNORMAL) POCT glucose (07/24/2024 6:59 PM CDT) Glucose, POC 204(H) 70 - 199 mg/dL Blood 07/24/2024 6:59 PM CDT 07/24/2024 6:59 PM CDT us Leonor Quan MD LAB POCT ORDERABLES - D EVICE Final Result GILLIAN [facility] [place] [address] * Critical Care (07/24/2024 6:46 PM CDT) [...] plan with the ICU team and other medical/programmer analyst consultant staff, making frequent assessments and decisions [...] ORDERABLES - D EVICE Final Result GILLIAN [facility] [place] [address] * XR Chest 1 View - in [...] Oxyhemoglobin, pulmonary artery (07/24/2024 4:24 PM CDT) Oxyhemki, PA 78.0 % Comment: Interpretive Data No reference range established. Current interpretive data was last revised 2020. Blood 07/24/2024 4:24 PM CDT 07/24/2024 4:31 PM CDT Amber KUHN LAB BLOOD ORDERABLES Fi nal Result GILLIAN [facility] Department of Laboratories [place], [place] [id number] * (ABNORMAL) Lipid panel (07/24/2024 4:21 PM [...] revised on 2018. Triglycerides 100 <=149 mg/dL [facility] Comment: Interpretive Data Ages < or = [...] revised on 2018. HDL 26(L) >=40 mg/dL [facility] Comment: Interpretive Data Ages < or = [...] on 2018. LDL, calculated 56 <=129 mg/dL [facility] Comment: Interpretive Data Ages < or = [...] LAB BLOOD ORDERABLES Fi nal Result GILLIAN [facility] [place] [address] * (ABNORMAL) Basic metabolic panel (07/24/2024 4:21 PM CDT) Sodium 141 135 - 145 mmol/L Potassium, pl 4.9 3.3 - 4.9 mmol/L [facility] Chloride 107 97 - 110 mmol/L [facility] CO2 24 22 - 32 mmol/L [facility] Anion gap 10 2 - 15 mmol/L [facility] BUN 12 6 - 25 mg/dL [facility] Creatinine 0.79(L) 0.80 - 1.30 mg/dL [facility] Glucose 142 70 - 199 mg/dL [facility] Comment: Interpretive Data Fasting glucose >/= 126 [...] 2022. Calcium 9.1 8.5 - 10.3 mg/dL [facility] Blood 07/24/2024 4:21 PM CDT 07/24/2024 4:34 PM CDT Leonor Quan MD LAB BLOOD ORDERABLES Fi nal Result [facility] [place] [address] * Magnesium (07/24/2024 4:21 PM CDT) Pathologist [facility] Magnesium 2.5 1.4 - 2.5 mg/dL Blood 07/24/2024 4:21 PM CDT 07/24/2024 4:34 PM CDT Leonor Quan MD LAB BLOOD ORDERABLES Fi nal Result Performing Organization Address [facility]/ZIP Co de Phone Number GILLINA ERAZO [facility] Department [place] [address] * eGFR (07/24/2024 4:21 PM CDT) [facility] eGFR >90 >=60 mL/min/1. 73 m2 Comment: [...] ORDERABLES Fi nal Result Performing Organization Address City/[facility]/ZIP Co de Phone Number GILLIAN ERAZO [facility] Department [place] [address] * Phosphorus (07/24/2024 4:21 PM CDT) Pathologist [facility] Phosphorus, pl 4.5 2.3 - 4.5 mg/dL Blood 07/24/2024 4:21 PM CDT 07/24/2024 4:34 PM CDT us Leonor Quan MD LAB BLOOD ORDERABLES Fi nal Result Performing Organization Address [facility] Co de Phone Number [facility] Department [place] [address] * Triglycerides (07/24/2024 4:21 PM CDT) Pathologist [facility] Triglycerides 93 <=149 mg/dL Comment: Interpretive Data [...] CDT 07/24/2024 4:34 PM CDT Narrative GILLIAN [facility] - 07/24/2024 5:01 PM CDT While on propofol infusion. us Amber KUHN LAB BLOOD ORDERABLES Fi nal Result Performing Organization Address [facility] de Phone Number [facility] [place] [address] * aPTT (07/24/2024 4:21 PM CDT) aPTT [...] ORDERABLES Fi nal Result Performing Organization Address [facility] [place] [address] * (ABNORMAL) Protime-INR (07/24/2024 4:21 PM CDT) PT 15.7(H) 9.7 - 13.0 sec INR 1.44(H) 0.90 - 1.20 [facility] Comment: Interpretive data Oral anticoagulant therapeutic ranges: Venous thromboembolism prophylaxis or treatment: 2.0-3.0 CARDIOLOGY Standard range: 2.0-3.0 High-intensity range: 2.5-3.5 Refer to indication-specific guidelines for appropriate target ranges for prosthetic heart valve replacement. Current interpretive data was last revised on 2019. Blood 07/24/2024 4:21 PM CDT 07/24/2024 4:37 PM CDT Amber KUHN LAB BLOOD ORDERABLES Fi nal Result Performing Organization Address [facility] de Phone Number [facility] [place] [address] * (ABNORMAL) CBC without differential (07/24/2024 4:21 PM CDT) WBC 6.1 3.8 - 9.9 K/cumm Hgb 9.1(L) 13.0 - 17.5 g/dL [facility] Hct 27.8(L) 38.9 - 50.3 % [facility] Plt 79(L) 150 - 400 K/cumm [facility] MPV 10.1 9.1 - 12.3 fL [facility] RBC 3.34(L) 4.30 - 5.80 M/cumm [facility] MCV 83.2 81.3 - 96.4 fL [facility] MCH 27.2 27.1 - 33.3 pg [facility] MCHC 32.7 32.3 - 35.7 g/dL [facility] RDW CV 15.5(H) 11.1 - 14.9 % [facility] RDW SD 47.1 35.7 - 48.1 fL [facility] NRBC abs 0.00 0.00 - 0.01 K/cumm [facility] Blood 07/24/2024 4:21 PM CDT 07/24/2024 4:35 PM CDT us Amber KUHN LAB BLOOD ORDERABLES nal Result [facility] [place] [address] * (ABNORMAL) POC Blood Gas and Chemistries, Arterial - (07/24/2024 4:14 PM CDT) [facility] pH, Art POC 7.35 7.35 - 7.45 pCO2, Art POC 41 35 - 45 mmHg [facility] pO2, Art POC 224(H) 83 - 108 mmHg [facility] Na, POC 140 135 - 145 mmol/L [facility] K POC 4.8 3.3 - 4.9 mmol/L [facility] Comment: Interpretive Data Not all point of care methods assess for hemolysis. Confirm with instrument and retest K+ if not consistent with clinical signs and symptoms. Current Interpretive Data was last revised on 2024. Cl, POC 112(H) 97 - 110 mmol/L [facility] Ionized Ca, POC 4.95 4.50 - 5.10 mg/dL [facility] Glucose, POC 139 70 - 199 mg/dL [facility] Lactate, POC 2.3(H) 0.7 - 2.2 mmol/L [facility] SO2 (aliza) arterial 100(H) 90 - 95 % [facility] Base excess, POC -2.8 mmol/L [facility] HCO3, Art POC 23 20 - 30 mmol/L [facility] Hct, POC 29.0(L) 41.4 - 51.6 % [facility] Total Hb, POC 9.5(L) 13.8 - 17.2 g/dL [facility] Blood 07/24/2024 4:14 PM CDT 07/24/2024 4:14 PM CDT us Leonor Quan MD LAB POCT ORDERABLES - D EVICE Final Result [facility] [place] [address] * Critical Care (07/24/2024 3:22 PM CDT) [...] plan with the ICU team and other medical/programmer analyst consultant staff, making frequent assessments and decisions [...] POC 30(L) 33 - 51 mm [facility] HEPTEM-A10, POC 40(L) 44 - 61 mm [facility] HEPTEM-A20, POC 47(L) 52 - 67 mm [facility] HEPTEM-MCF, POC 49(L) 54 - 69 mm [facility] HEPTEM-Run Time, POC (hh:mm:ss) 02:00:00 [facility] Blood 07/24/2024 3:21 PM CDT 07/24/2024 3:21 PM CDT us Leonor Quan MD LAB POCT ORDERABLES - D DEANICE Edited Result - Final GILLIAN ERAZO [facility] [place] [address] * (ABNORMAL) POC Thromboelastometry Panel - Intrinsic [...] [facility] INTEM-Run Time, POC (hh:mm:ss) 02:00:00 [facility] Blood 07/24/2024 3:20 PM CDT 07/24/2024 3:20 PM CDT Leonor Quan MD LAB POCT ORDERABLES - D EVICE Edited Result - Final Performing Organization Address [facility]/ZIP Co de Phone Number [facility] [place] [address] * (ABNORMAL) POC Thromboelastometry Panel - Extrinsic [...] [facility] EXTEM-Run Time, POC (hh:mm:ss) 02:00:00 [facility] Blood 07/24/2024 3:19 PM CDT 07/24/2024 3:19 PM CDT Leonor Quan MD LAB POCT ORDERABLES - D EVICE Edited Result - Final [facility] [place] [address] * POC Thromboelastometry Panel - Fibrinogen (07/24/2024 3:19 PM CDT) FIBTEM-A5, POC 10 5 - 16 mm FIBTEM-A10, POC 11 6 - 17 mm [facility] FIBTEM-A20, POC 12 6 - 18 mm [facility] FIBTEM-MCF, POC 13 9 - 19 mm [facility] FIBTEM-Run Time, POC (hh:mm:ss) 02:00:00 [facility] Blood 07/24/2024 3:19 PM CDT 07/24/2024 3:19 PM CDT us Leonor Quan MD LAB POCT ORDERABLES - D JULIETTE Edited Result - Final Performing Organization Address City/[facility]/ZIP Co de Phone Number [facility] [place] [address] * Transfuse platelets (07/24/2024 2:41 PM CDT) Blood us Cristina Phipps MD BLOOD TRANSFUSION ORDERAB LES Final Result [facility] [place] [address] * Transfuse plasma (07/24/2024 2:40 PM CDT) Blood us Cristina Phipps MD BLOOD TRANSFUSION ORDERAB LES Final Result [facility] [place] [address] * Prepare platelets: 1 Units (07/24/2024 2:24 PM CDT) Product code [id number] Unit Number [id number] [facility] Product Blood Type OPOS [facility] Dispense Status PRESUMED TRANSFUSED [facility] Blood (Blood, Venous) 07/24/2024 2:24 PM CDT 07/24/2024 2:24 PM CDT Narrative [facility] - 07/25/2024 12:49 AM CDT Are special requirements needed? (all products are leukoreduced)->No Date required:-[id number] PLT # of Units:-1-Units Reasons:-Major active bleeding} Cristina Phipps MD BLOOD BANK PRODUCT ORDERA BLES Final Result Performing Organization Address [facility] Co de Phone Number [facility] [place] [address] * POCT Partial thromboplastin time (PTT) (07/24/2024 2:17 PM CDT) APTT, POC 34.7 32.5 - 46.1 sec Blood 07/24/2024 2:17 PM CDT 07/24/2024 2:17 PM CDT Result [facility] Leonor Quan MD LAB POCT ORDERABLES - D EVICE Final Result Performing Organization Address [facility] Co de Phone Number [facility] [place] [address] * (ABNORMAL) POCT prothrombin time (07/24/2024 2:17 PM CDT) PT, POC 34.3(H) 11.7 - 16.6 sec INR, POC 2.6(H) 0.9 - 1.3 [facility] Blood 07/24/2024 2:17 PM CDT 07/24/2024 2:17 PM CDT Result [facility] Leonor Quan MD LAB POCT ORDERABLES - D EVICE Final Result Performing Organization Address [facility] Co de Phone Number [facility] [place] [address] * (ABNORMAL) POCT hemoglobin, hematocrit and platelet count (07/24/2024 2:15 PM CDT) [facility] Hgb, POC 8.4(L) 13.0 - 17.5 g/dL Hematocrit POC 25.4(L) 38.9 - 50.3 % [facility] Platelet POC 55(L) 150 - 400 K/cumm [facility] Blood 07/24/2024 2:15 PM CDT 07/24/2024 2:15 PM CDT Leonor Quan MD LAB POCT ORDERABLES - D EVICE Final Result [facility] [place] [address] * POCT heparin/ACT CPB (07/24/2024 2:14 PM CDT) [facility] Heparin POC 0.0 units/mL ACT, CPB 136 112 - 174 sec [facility] Blood 07/24/2024 2:14 PM CDT 07/24/2024 2:14 PM CDT Leonor Quan MD LAB POCT ORDERABLES - D EVICE Final Result Performing Organization Address City/[facility] Co de Phone Number [facility] [place] [address] * (ABNORMAL) POC Blood Gas and Chemistries, Arterial - (07/24/2024 2:14 PM CDT) [facility] pH, Art POC 7.35 7.35 - 7.45 pCO2, Art POC 41 35 - 45 mmHg [facility] pO2, Art POC 92 83 - 108 mmHg [facility] Na, POC 140 135 - 145 mmol/L [facility] K POC 4.7 3.3 - 4.9 mmol/L [facility] Comment: Interpretive Data Not all point of care methods assess for hemolysis. Confirm with instrument and retest K+ if not consistent with clinical signs and symptoms. Current Interpretive Data was last revised on 2024. Cl, POC 112(H) 97 - 110 mmol/L [facility] Ionized Ca, POC 5.94(H) 4.50 - 5.10 mg/dL [facility] Glucose, POC Incalculable 70 - 199 mg/dL [facility] Lactate, POC 2.7(H) 0.7 - 2.2 mmol/L [facility] SO2 (aliza) arterial 99(H) 90 - 95 % [facility] Base excess, POC -2.8 mmol/L [facility] HCO3, Art POC 23 20 - 30 mmol/L [facility] Hct, POC 26.0(L) 41.4 - 51.6 % [facility] Total Hb, POC 8.8(L) 13.8 - 17.2 g/dL [facility] Blood 07/24/2024 2:14 PM CDT 07/24/2024 2:14 PM CDT Leonor Quan MD LAB POCT ORDERABLES - D EVICE Final Result Performing Organization Address City/[facility]/ZIP Co de Phone Number [facility] [place] [address] * POCT glucose (07/24/2024 2:13 PM CDT) Glucose, POC 113 70 - 199 mg/dL Blood 07/24/2024 2:13 PM CDT 07/24/2024 2:13 PM CDT Leonor Quan MD LAB POCT ORDERABLES - D EVICE Final Result [facility] [place] [address] * (ABNORMAL) POCT heparin/ACT CPB (07/24/2024 1:47 PM CDT) Heparin POC <2.8 units/mL ACT, CPB 456(H) 112 - 174 sec [facility] Blood 07/24/2024 1:47 PM CDT 07/24/2024 1:47 PM CDT Leonor Quan MD LAB POCT ORDERABLES - D EVICE Final Result Performing Organization Address [facility] Co de Phone Number [facility] [place] [address] * (ABNORMAL) POCT heparin/ACT CPB (07/24/2024 1:19 PM CDT) Pathologist [facility] Heparin POC <2.8 units/mL ACT, CPB 518(H) 112 - 174 sec [facility] Blood 07/24/2024 1:19 PM CDT 07/24/2024 1:19 PM CDT Leonor Qaun MD LAB POCT ORDERABLES - D EVICE Final Result Performing Organization Address [facility] de Phone Number [facility] [place] [address] * (ABNORMAL) POC Blood Gas and Chemistries, Arterial - (07/24/2024 1:18 PM CDT) pH, Art POC 7.39 7.35 - 7.45 pCO2, Art POC 39 35 - 45 mmHg [facility] pO2, Art POC 278(H) 83 - 108 mmHg [facility] Na, POC 141 135 - 145 mmol/L [facility] K POC 5.1(H) 3.3 - 4.9 mmol/L [facility] Comment: Interpretive Data Not all point of care methods assess for hemolysis. Confirm with instrument and retest K+ if not consistent with clinical signs and symptoms. Current Interpretive Data was last revised on 2024. Cl, POC 111(H) 97 - 110 mmol/L [facility] Ionized Ca, POC 4.66 4.50 - 5.10 mg/dL [facility] Glucose, POC Incalculable 70 - 199 mg/dL [facility] Lactate, POC 1.7 0.7 - 2.2 mmol/L [facility] SO2 (aliza) arterial 99(H) 90 - 95 % [facility] Base excess, POC -1.2 mmol/L [facility] HCO3, Art POC 24 20 - 30 mmol/L [facility] Hct, POC 26.0(L) 41.4 - 51.6 % [facility] Total Hb, POC 8.6(L) 13.8 - 17.2 g/dL [facility] Blood 07/24/2024 1:18 PM CDT 07/24/2024 1:18 PM CDT Leonor Quan MD LAB POCT ORDERABLES - D EVICE Final Result Performing Organization Address [facility]/ZIP Co de Phone Number [facility] [place] [address] * POCT glucose (07/24/2024 12:54 PM CDT) Glucose, POC 87 70 - 199 mg/dL Blood 07/24/2024 12:5 4 PM CDT 07/24/2024 12:54 PM CDT Leonor Quan MD LAB POCT ORDERABLES - D EVICE Final Result Performing Organization Address [facility]/ZIP Co de Phone Number [facility] [place] [address] * (ABNORMAL) POCT heparin/ACT CPB (07/24/2024 12:53 PM CDT) Heparin POC 3.4 units/mL ACT, CPB 553(H) 112 - 174 sec [facility] Blood 07/24/2024 12:5 3 PM CDT 07/24/2024 12:53 PM CDT Leonor Quan MD LAB POCT ORDERABLES - D EVICE Final Result [facility] Evelin [facility] Department [place] [address] * (ABNORMAL) POC Blood Gas and Chemistries, Arterial - (07/24/2024 12:52 PM CDT) pH, Art POC 7.40 7.35 - 7.45 pCO2, Art POC 39 35 - 45 mmHg [facility] pO2, Art POC 312(H) 83 - 108 mmHg [facility] Na, POC 140 135 - 145 mmol/L [facility] K POC 4.9 3.3 - 4.9 mmol/L [facility] Comment: Interpretive Data Not all point of care methods assess for hemolysis. Confirm with instrument and retest K+ if not consistent with clinical signs and symptoms. Current Interpretive Data was last revised on 2024. Cl, POC 112(H) 97 - 110 mmol/L [facility] Ionized Ca, POC 4.47(L) 4.50 - 5.10 mg/dL [facility] Glucose, POC Incalculable 70 - 199 mg/dL [facility] Lactate, POC 1.5 0.7 - 2.2 mmol/L [facility] SO2 (aliza) arterial 99(H) 90 - 95 % [facility] Base excess, POC -0.5 mmol/L [facility] HCO3, Art POC 24 20 - 30 mmol/L [facility] Hct, POC 25.0(L) 41.4 - 51.6 % [facility] Total Hb, POC 8.3(L) 13.8 - 17.2 g/dL [facility] Blood 07/24/2024 12:5 2 PM CDT 07/24/2024 12:52 PM CDT us Leonor Quan MD LAB POCT ORDERABLES - D EVICE Final Result Performing Organization Address City/[facility]/ZIP Co de Phone Number [facility] Department [place] [address] * Prepare plasma: 2 Units (07/24/2024 12:45 PM CDT) [facility] Product code [id number] Unit Number [id number] [facility] Product Blood Type BPOS [facility] Dispense Status PRESUMED TRANSFUSED [facility] Blood (Blood, Venous) 07/24/2024 12:45 PM CDT 07/24/2024 12:45 PM CDT Narrative [facility] - 07/25/2024 12:49 AM CDT Date required:-[id number] FFP # of Units:-2-Units Reasons:-Active major bleeding with coagulopathy} Cristina Phipps MD BLOOD BANK PRODUCT ORDERA BLES Final Result Performing Organization Address [facility]/ZIP Co de Phone Number [facility] [place] [address] * Transfuse RBC (07/24/2024 12:33 PM CDT) Blood Cristina Phipps MD BLOOD TRANSFUSION ORDERAB LES Final Result Performing Organization Address City/[facility]/ZIP Co de Phone Number [facility] [place] [address] * (ABNORMAL) POC Blood Gas and Chemistries, Arterial - (07/24/2024 12:15 PM CDT) [facility] pH, Art POC 7.41 7.35 - 7.45 pCO2, Art POC 39 35 - 45 mmHg [facility] pO2, Art POC 314(H) 83 - 108 mmHg [facility] Na, POC 141 135 - 145 mmol/L [facility] K POC 4.5 3.3 - 4.9 mmol/L [facility] Comment: Interpretive Data Not all point of care methods assess for hemolysis. Confirm with instrument and retest K+ if not consistent with clinical signs and symptoms. Current Interpretive Data was last revised on 2024. Cl, POC 112(H) 97 - 110 mmol/L [facility] Ionized Ca, POC 4.43(L) 4.50 - 5.10 mg/dL [facility] Glucose, POC Incalculable 70 - 199 mg/dL [facility] Lactate, POC 1.2 0.7 - 2.2 mmol/L [facility] SO2 (aliza) arterial 99(H) 90 - 95 % [facility] Base excess, POC 0.1 mmol/L [facility] HCO3, Art POC 25 20 - 30 mmol/L [facility] Hct, POC 24.0(L) 41.4 - 51.6 % [facility] Total Hb, POC 7.9(L) 13.8 - 17.2 g/dL [facility] Blood 07/24/2024 12:1 5 PM CDT 07/24/2024 12:15 PM CDT Leonor Quan MD LAB POCT ORDERABLES - D EVICE Final Result Performing Organization Address City/[facility]/ZIP Co de Phone Number [facility] [place] [address] * (ABNORMAL) POCT heparin/ACT CPB (07/24/2024 12:14 PM CDT) Heparin POC 4.1 units/mL ACT, CPB 678(H) 112 - 174 sec [facility] Blood 07/24/2024 12:1 4 PM CDT 07/24/2024 12:14 PM CDT Leonor Quan MD LAB POCT ORDERABLES - D EVICE Final Result [facility] [place] [address] * (ABNORMAL) POCT heparin/ACT CPB (07/24/2024 11:42 AM CDT) Heparin POC 3.4 units/mL ACT, CPB 758(H) 112 - 174 sec [facility] Blood 07/24/2024 11:4 2 AM CDT 07/24/2024 11:42 AM CDT us Leonor Quan MD LAB POCT ORDERABLES - D EVICE Final Result [facility] [place] [address] * (ABNORMAL) POC Blood Gas and Chemistries, Arterial - (07/24/2024 11:41 AM CDT) pH, Art POC 7.38 7.35 - 7.45 pCO2, Art POC 35 35 - 45 mmHg [facility] pO2, Art POC 454(H) 83 - 108 mmHg [facility] Na, POC 140 135 - 145 mmol/L [facility] K POC 4.6 3.3 - 4.9 mmol/L [facility] Comment: Interpretive Data Not all point of care methods assess for hemolysis. Confirm with instrument and retest K+ if not consistent with clinical signs and symptoms. Current Interpretive Data was last revised on 2024. Cl, POC 110 97 - 110 mmol/L [facility] Ionized Ca, POC 4.32(L) 4.50 - 5.10 mg/dL [facility] Glucose, POC Incalculable 70 - 199 mg/dL [facility] Lactate, POC 1.1 0.7 - 2.2 mmol/L [facility] SO2 (aliza) arterial 100(H) 90 - 95 % [facility] Base excess, POC -4.0 mmol/L [facility] HCO3, Art POC 21 20 - 30 mmol/L [facility] Hct, POC 26.0(L) 41.4 - 51.6 % [facility] Total Hb, POC 8.8(L) 13.8 - 17.2 g/dL [facility] Blood 07/24/2024 11:4 1 AM CDT 07/24/2024 11:41 AM CDT us Leonor Quan MD LAB POCT ORDERABLES - D EVICE Final Result [facility] [place] [address] * (ABNORMAL) POC Blood Gas and Chemistries, Arterial - (07/24/2024 10:59 AM CDT) [facility] pH, Art POC 7.32(L) 7.35 - 7.45 pCO2, Art POC 46(H) 35 - 45 mmHg [facility] pO2, Art POC 189(H) 83 - 108 mmHg [facility] Na, POC 141 135 - 145 mmol/L [facility] K POC 4.3 3.3 - 4.9 mmol/L [facility] Comment: Interpretive Data Not all point of care methods assess for hemolysis. Confirm with instrument and retest K+ if not consistent with clinical signs and symptoms. Current Interpretive Data was last revised on 2024. Cl, POC 111(H) 97 - 110 mmol/L [facility] Ionized Ca, POC 5.79(H) 4.50 - 5.10 mg/dL [facility] Glucose, POC Incalculable 70 - 199 mg/dL [facility] Lactate, POC 1.2 0.7 - 2.2 mmol/L [facility] SO2 (aliza) arterial 100(H) 90 - 95 % [facility] Base excess, POC -2.5 mmol/L [facility] HCO3, Art POC 24 20 - 30 mmol/L [facility] Hct, POC 34.0(L) 41.4 - 51.6 % [facility] Total Hb, POC 11.3(L) 13.8 - 17.2 g/dL [facility] Blood 07/24/2024 10:5 9 AM CDT 07/24/2024 10:59 AM CDT us Leonor Quan MD LAB POCT ORDERABLES - D DEANICE Final Result [facility] [place] [address] * (ABNORMAL) POCT heparin/ACT CPB (07/24/2024 10:57 AM CDT) [facility] Heparin POC >4.7 units/mL ACT, CPB 773(H) 112 - 174 sec [facility] Blood 07/24/2024 10:5 7 AM CDT 07/24/2024 10:57 AM CDT Leonor Quan MD LAB POCT ORDERABLES - D EVICE Final Result Performing Organization Address City/[facility]/ZIP Co de Phone Number [facility] [place] [address] * POCT glucose (07/24/2024 10:11 AM CDT) [facility] Glucose, POC 73 70 - 199 mg/dL Blood 07/24/2024 10:1 1 AM CDT 07/24/2024 10:11 AM CDT Leonor Quan MD LAB POCT ORDERABLES - D EVICE Final Result Performing Organization Address City/[facility] Co de Phone Number [facility] [place] [address] * (ABNORMAL) POC Blood Gas and Chemistries, Arterial - (07/24/2024 9:30 AM CDT) [facility] pH, Art POC 7.42 7.35 - 7.45 pCO2, Art POC 37 35 - 45 mmHg [facility] pO2, Art POC 112(H) 83 - 108 mmHg [facility] Na, POC 141 135 - 145 mmol/L [facility] K POC 3.9 3.3 - 4.9 mmol/L [facility] Comment: Interpretive Data Not all point of care methods assess for hemolysis. Confirm with instrument and retest K+ if not consistent with clinical signs and symptoms. Current Interpretive Data was last revised on 2024. Cl, POC 110 97 - 110 mmol/L [facility] Ionized Ca, POC 4.96 4.50 - 5.10 mg/dL [facility] Glucose, POC Incalculable 70 - 199 mg/dL [facility] Lactate, POC 1.6 0.7 - 2.2 mmol/L [facility] SO2 (aliza) arterial 100(H) 90 - 95 % [facility] Base excess, POC -0.3 mmol/L [facility] HCO3, Art POC 24 20 - 30 mmol/L [facility] Hct, POC 33.0(L) 41.4 - 51.6 % [facility] Total Hb, POC 11.0(L) 13.8 - 17.2 g/dL [facility] Blood 07/24/2024 9:30 AM CDT 07/24/2024 9:30 AM CDT Leonor Quan MD LAB POCT ORDERABLES - D EVICE Final Result Performing Organization Address City/[facility] Co de Phone Number [facility] [place] [address] * POCT heparin dose response, CPB (07/24/2024 9:19 AM CDT) Baseline ACT POC 146 112 - 174 sec Heparin dose response slope POC 107 60 - 195 [facility] Projected Heparin Concentration POC 3.1 units/mL [facility] Blood 07/24/2024 9:19 AM CDT 07/24/2024 9:19 AM CDT Leonor Quan MD LAB POCT ORDERABLES - D EVICE Final Result Performing Organization Address City/[facility] Co de Phone Number [facility] [place] [address] * EMILE Add-On For OR (07/24/2024 8:01 AM CDT) Narrative [facility] PROSOLV_CARDIOREPORT_CONS SCIMAGE - 07/24/2024 8:01 AM CDT Procedure Auto Finalized by Rule: MATEO CV EMILE DURING CASE OR Please see the Anesthesiologist's Procedure Note for the results. Cristina Phipps MD CV ECHO PROCEDURES Final Result [facility] PROSOLV_CARDIOREPORT_CONS SCIMAGE * POCT glucose (07/24/2024 6:46 AM CDT) Glucose, POC 78 70 - 199 mg/dL Blood 07/24/2024 6:46 AM CDT 07/24/2024 6:46 AM CDT us Leonor Quan MD LAB POCT ORDERABLES - D EVICE Final Result Performing Organization Address City/[facility]/ZIP Co de Phone Number [facility] [place] [address] * Check Sample (07/24/2024 6:45 AM CDT) ABO Rh O Positive [facility] HCLL OTHER 07/24/2024 6:45 AM CDT 07/24/2024 7:17 AM CDT Leonor Quan MD LAB BLOOD ORDERABLES Fi nal Result Performing Organization Address City/[facility] Co de Phone Number [facility] [place] [address] [facility] * Prepare RBC: 4 Units (07/24/2024 6:36 AM CDT) Product code [id number] [facility] Unit Number [id number] [facility] Product Blood Type OPOS [facility] Dispense [facility] PRESUMED TRANSFUSED [facility] Product code [id number] [facility] Unit Number [id number] [facility] Product Blood Type OPOS [facility] Dispense Status RETURNED [facility] Product code [id number] Unit Number [id number] [facility] Product Blood Type OPOS [facility] Dispense Status RETURNED [facility] Product code [id number] [facility] Unit Number [id number] [facility] Product Blood Type OPOS [facility] Dispense Status RETURNED [facility] Blood 07/24/2024 6:36 AM CDT 07/24/2024 6:35 AM CDT Narrative [facility] - 07/25/2024 12:49 AM CDT Specify Procedure:->CABG Are special requirements needed? (All products are leukoreduced and CMV- safe)- >No Date required:-[id number] LRRBC # of [id number] Reasons:-Hold for procedure (specify procedure)} Shantal Sánchez NP BLOOD BANK PRODUCT [facility]DE [facility] Final Result [facility] One [facility] [place] [address] documented in this encounter Visit Diagnoses Diagnosis S/P CABG (coronary artery bypass graft)- Primary Postsurgical aortocoronary bypass status Preoperative testing Unspecified pre-operative examination Bruising Contusion of unspecified site Coronary artery disease, unspecified vessel or lesion type, unspecified whether angina present, unspecified whether standing rock or transplanted heart CAD, 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] Other mechanical complication of infusion catheter, initial encounter (HCC) Bradycardia Other specified cardiac dysrhythmias Complete heart block (CMS/HCC) (HCC) Atrioventricular block, complete Junctional escape rhythm Coronary artery disease due to calcified coronary lesion CAD, multiple vessel Bradycardia Other specified cardiac dysrhythmias Complete heart block (CMS/HCC) (HCC) Atrioventricular block, complete Junctional escape rhythm documented in this encounter Admitting Diagnoses Diagnosis CAD, multiple vessel Coronary arteriosclerosis Coronary atherosclerosis of unspecified type of vessel, standing rock or graft Coronary artery disease due to [...] unable to take PO glucose/juice., Starting on Wed08/10/24 at 1509, After Glucagon is administered, position [...] for NPO Status, Indications: Diabetes MellitusIndications:Diabetes Mellitus isosorbide mononitrate ER (IMDUR) extended release tablet 15 mg 15 mg, oral, Daily, First dose on Wed07/27/24 at 0945, Tablets that are scored may be split, but do not crush, chew, dissolve, open or otherwise manipulate tablet/capsule. Given 08/11/2024 9:23 AM CDT 15 m g Given 08/10/2024 10:22 AM CDT 15 mg Given 08/09/2024 10:05 AM CDT 15 mg magnesium oxide (MAG-OX) tablet 800 mg 800 [...] Given 08/09/2024 10:05 AM CDT 40 mg papaverine injection As needed, Starting on Wed07/24/24 at 1344, Intra-Op Given 07/24/2024 1:44 PM CDT 240 mg Surgical Site pregabalin (LYRICA) capsule 100 mg 100 mg, oral, 2 times daily, First dose (after last modification) on Wed08/11/24 at 2100 sodium chloride 0.9% irrigation As needed, Starting on Wed07/24/24 at 1345, Intra-Op Given 07/24/2024 1:45 PM CDT 2,000 mL Surgical Site Given 07/24/2024 1:44 PM CDT 1,000 mL Schmidt rgical Site Given 07/24/2024 1:30 PM CDT 2,000 mL Schmidt rgical Site sterile water irrigation As needed, Starting on Wed07/24/24 at 1347, Intra-Op Given 07/24/2024 1:47 PM CDT 2,000 mL Surgical Site vancomycin (VANCOCIN) solution As needed, Starting on Wed07/24/24 at 1346, Intra-Op Given 07/24/2024 2:34 PM CDT 1,000 mg Sternum Given 07/24/2024 1:46 PM CDT 4,[address] ernum Given 07/24/2024 1:44 PM CDT 1,000 mg Schmidt rgical Site documented in this encounter [...] Nedra Ray RN)1724 (Given - Provider: Nedra Ray, NAVIN) 0923 (Given - Provider: Nedra Ray RN) [...] capsule 2112 (Given - Provider: Regino Soria, NAVIN) 2007 (Given - Provider: Leanna Krueger, NAVIN) insulin glargine (LANTUS, SEMGLEE) 100 unit/mL injection 35 Units (CANCELED) 35 Units, subcutaneous, Every morning, First dose (after last modification) on Wed08/06/24 at 0900, Do not mix with other insulins 1006 (Given - Provider: Arabella Mancini, NAVIN) 1024 (Not Given - Provider: Nedra Ray [...] refused)2112 (Given - Provider: Regino Soria RN) 102 (Given - Provider: Nedra Ray RN)1520 (Not [...] tablet 1,000 mg 2 0 08/04/2024 07/24/2024 ioversoL (OPTIRAY 320) injection 2 08/04/20 lidocaine (XYLOCAINE) 10 mg/ mL (1 %) injection 1 08/04/2024 sodium chloride 0.9% infusion 1 08/04/2024 vancomycin (VANCOCIN) 1,000 mg in sodium chloride 0.9% 1,000 mL irrigation solution 1 08/04/2024 vancomycin 1500 mg/515 mL in [...] 07/24/2024 hydrOXYzine (ATARAX) tablet 25 mg 2 hydrOXYzine (ATARAX) tablet 50 mg 1 insulin [...] 07/24/2024 clopidogreL (PLAVIX) tablet 75 mg 2 07/24/[address] (CYMBALTA) ext ended release [...] 07/25/202407/24 albumin 5 % bottle 12.5 g 07/24/2024 albumin 5 % bottle 25 g 07/24/2024 aspirin suppository 300 mg 07/24/2024 Carrier Fluids for Secondary Infusion - [...] 2 07/24/2024 HYDROmorphone (DILAUDID) injection 0.5 mg 07/24/2024 insulin lispro (HumaLOG, ADM ELOG) 100 unit/mL injection 2-7 Units 07/24/2024 insulin regular bolus from bag 4-10 Units 1 07/24/2024 insulin regular bolus from bag 4-6 Units 1 07/24/2024 insulin regular in 0.9% sodi um [...] e xtended release tablet 40 mg 07/24/2024 potassium chloride 20 mEq/50 mL in sterile water (premix) 20 mEq 1 07/24/2024 propofol (DIPRIVAN) 10 mg/mL infusion 1 senna 1.76 mg/mL syrup 8.8 mg 1 07/24/2024 sodium chloride 0.9% flush 0.5-20 mL 1 07/09 sodium chloride 0.9% flush 10-30 mL 1 07/24 sodium chloride 0.9% solution 2 07/24/2024 vancomycin 1,000 mg/50 mL in sterile [...] 07/24/2024 documented in this encounter Care Teams Collections Attorney Relationship Specialty Start Date End Date Juan Retana MD [address] [facility] [address] [place] [address] PCP - General Internal Medicine 07/05/24 [facility] [address] [place] [address] Referring Physician Cardiology 07/05/24 documented as of this encounter
--- OUTSIDE RECORDS SUMMARY | 2024-11-17 04:30 | XMS_ITS | Encounter Summary ---
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 Role Phone Juan Retana MD Primary Care Provider [phone] [facility], Alverto Gutierrez Unavailable Reason for Visit * Auth/Cert (Routine) Specialty Diagnoses / Procedures Referred By Contac t Referred To Contact Diagnoses CAD, multiple vessel CAD, 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] Procedures HC CABG, ART-VEIN, TWO NM NDSC SURG W/VIDEO-ASSISTED HARVEST VEIN CABG CORONARY ARTERY BYPASS GRAFT WITH PUMP ENDOSCOPIC VESSEL HARVEST - BURGESS VEIN Referral ID Status Reason Start Date Expiration Date Visits Re quested Visits Authorized [id number] 1 1 Encounter Details Date Type Department Care Team (Late st Contact Info) Description 07/24/2024 8:02 AM CDT Anesthesia Event [facility] Operating Room [address] [place] [address] Cristina Phipps MD [address] [place] [address] Reji Sotelo NP [address] [facility] [phone] [place] [address] Anesthesia Record Procedure Summary Procedure Name Responsible Anesthesiologist Anesthesia Start Time Anesthesia Stop Time CORONARY ARTERY BYPASS GRAFT WITH PUMP x3 (Chest) Cristina Phipps MD 07/24/24 0802 07/24/24 1615 Events Date Time Event Comment 07/24/2024 0611 In Preop 0715 Start Data 0801 In Room 0802 An Start 0802 An Start Data 0809 Perfusion Ready 0815 An Induction The patient was reevaluated immediately before moderate or deep sedation use and before anesthesia induction. 0817 An Intubation 0833 EMILE placed 0858 Anesthesia Ready 0930 Cell Saver Start 0936 Lungs Down 0937 Proc Start 0937 Incision Start 0937 Sternotomy 1135 CPB ON 1136 Cooling Start 1141 Aortic Clamp ON 1318 Rewarming Start 1318 Cooling Stop 1325 Aortic Clamp OFF 1336 An Defib Vfib. 10J x2, 2 0J x2 1356 CPB OFF 1511 Sternum closed 1529 an stop data 1529 Perfusion Complete 1533 EMILE removed 1540 Proc Fin 1547 an stop data 1549 Out of Room 1615 Handoff to RN I completed my handoff [...] disposition at the time of handoff: PACU 1615 An Stop Meds Name Total midazolam PF 2 mg lidocaine (cardiac) syringe 2 % 60 mg propofol 525.37 mg fentaNYL 2,000 mcg rocuronium 200 mg phenylephrine 100 mcg/mL 1.28 mg norepinephrine 28 mcg heparin 1,000 unit/ml 35,000 Units heparin injection 1,000 unit/mL 5,000 Un its tranexamic acid 2,000 mg calcium chloride 1 g calcium chloride injection 1 g phenylephrine (GER-SYNEPHRINE) injection 500 mcg lidocaine PF (XYLOCAINE) injection 2 % 1 00 mg anticoagulant citrate dextrose solution A injection 1,000 mL potassium arrest solution 2 mEq/mL 63.4 mEq sodium bicarbonate injection 1 mEq/mL 50 mEq magnesium sulfate 5 g in 0.9% sodium chl oride 40 mL (additives solution) 46.3 mL norepinephrine in dextrose 5 % (LEVOPHED) 8,000 mcg/250 mL (32 mcg/mL) infusion (premix) 1.31 mg ceFAZolin (ANCEF) 2,000 mg/20 mL in ster ile water (premix) 2,000 mg 4,000 mg vancomycin 1500 mg/515 mL in sodium chlo ride 0.9% (premix) 1,500 mg 1,500 mg glycopyrrolate 200 mcg DOBUTamine in dextrose 5% (D OBUTREX) 1,000 mg/250 mL (4,000 mcg/mL) infusion (premix) 84.85 mg nitroglycerin in dextrose 5% 50 mg/250 m L (200 mcg/mL) infusion (premix) 1,970 mcg protamine 250 mg EPINEPHrine 0.1 mg/mL 30 mcg ondansetron PF (ZOFRAN) 2 mg/mL injectio n 4 mg sugammadex 200 mg albumin 25 % 50 mL albumin 5 % 500 mL sodium chloride 0.9% bolus 300 mL LR 1,000 mL Lactated Ringer's (LR) infusion 0 mL * Agents Name O2% N2O O2 N2O Air Isoflurane Inspired Isoflurane * Blood Name Total PRBC - CROSSMATCHED 250 mL FFP - CROSSMATCHED 150 mL PLATELETS - CROSSMATCHED 200 mL Lines, Drains, and Airways Type Details Placement Removal RETIRED Surgical Site 06/28/20; 1525; Le ft; Eye; 10/10/24 (Retired LDA, Removed/Completed by [facility] with LDA Utility); 1213 (Retired LDA, Removed/Completed by [facility] with LDA Utility); Other (Comment) 06/28/20 1525 by Celina Eagle RN 10/10/24 1213 by Discharge Provider, Automatic RETIRED Surgical Site 06/28/20; 1525; Ri ght; Eye; 10/10/24 (Retired LDA, Removed/Completed by [facility] with LDA Utility); 1213 (Retired LDA, Removed/Completed by [facility] with LDA Utility); Other (Comment) 06/28/20 1525 by Celina Eagle RN 10/10/24 1213 by Discharge Provider, Automatic Peripheral IV Placement Date: 07/24/24; Placement Time: 0650; Catheter Size: 18 G; Orientation: Posterior, Right; Location: Hand; Removal Date: 08/11/24; Removal Time: 1146; Removal Reason: Discharge 07/24/24 0650 by Mayi Page RN 08/11/24 1146 by Nedra Ray RN Urethral Catheter Placement Date: 07/24/24; Placement Time: 0900; Inserted by: stas HOLDEN; Type: Double-lumen, Non-latex, Straight-tip, Temperature probe; Balloon Size: 10 mL; Urine Returned: Yes; Removal Date: 08/03/24; Removal Time: 0456 07/24/24 0900 by Abebe Avila RN 08/03/24 0456 by Jhon Humphrey RN Wound 07/24/24; 0957; Incision; Chest; Anterior, Medial; 09/07/24 07/24/24 0957 by Abebe Avila RN 09/07/24 0000 by Cathi Reyes RN Wound 07/24/24; 0957; Incision; Arm; Left; 09/07/24 07/24/24 0957 by Abebe Avila RN 09/07/24 0000 by Cathi Reyes RN Wound 07/24/24; 0958; Incision; Leg; Right; 09/07/24 07/24/24 0958 by Abebe Avila RN 09/07/24 0000 by Cathi Reyes RN ETT Placement Date: 07/24/24; Placement Time: 1013 (created via procedure documentation); Technique: Video laryngoscopy; Type: ETT - single; Single Lumen Tube Size: 8 mm; Cuffed: Yes; Laryngoscope: Precious; Blade Size: 4; Location: Oral; Insertion Attempts: 1; Placement Verification: Auscultation, Capnometry; Removal Date: 07/24/24; Removal Time: 17507/24/24 1013 by Cristina Phipps MD 07/24/24 1755 by Zelda Arnett RRT Closed/Suction/Open Drain 07/24/24; 1051; No; 1; Left; Other (Comment) (arm); Bulb; 15 Fr. 07/24/24 1051 by Abebe Avila RN 07/27/24 0600 by Shaan Cooper RN Closed/Suction/Open Drain 07/24/24; 1139; No; 2; Right; Thigh; Bulb; 19 Fr.; Per order 07/24/24 1139 by Abebe Avila RN 07/27/24 0600 by Shaan Cooper RN Arterial Line Placement Date: 07/24/24; Placemnt Time: 1202 (created via procedure documentation); Size: 20 G; Orientation: Right; Location: Radial; Securement: Taped, Transparent dressing; Removal Date: 08/04/24; Removal Time: 03107/24/24 1202 by Cristina Phipps MD 08/04/24 0313 by Jhon Humphrey RN CVC Quadruple Lumen Placement Date: 07/24/24; Placement Time: 1204 (created via procedure documentation); Hand Hygiene: Yes; Line Length(cm): 20; Orientation: Right; Location: Internal jugular; Placement Verification: Ultrasound; Removal Date: 08/04/24; Removal Time: 0807/24/24 1204 by Cristina Phipps MD 08/04/24 0809 by Rosie Gonzáles RN Introducer Placement Date: 07/24/24; Placement Time: 1205 (created via procedure documentation); Existing LDA Placed by: Yes; Size: introducer sheath; Insertion Attempts: 07/31/24; Securement: 1323 07/24/24 1205 by Cristina Phipps MD 07/31/24 1323 by Shantal Jules RN PA Catheter Placement Date: 07/24/24; Placement Time: 1205 (created via procedure documentation); Site Prep: Chlorhexidine; Removal Date: 07/31/24; Removal Time: 1323 07/24/24 1205 by Cristina Phipps MD 07/31/24 1323 by Shantal Jules RN Y Chest Tube A and B 07/24/24; 1428; A; Anterior; Mediastinal; 32 Fr.; B; Posterior; Mediastinal; 32 Fr.; Other (Comment) 07/24/24 1428 by Abebe Avila RN 07/29/24 1356 by Daylin Harrington RN Y Chest Tube C and D 07/24/24; 1429; C; Right; Pleural; 32 Fr.; D; Left; Pleural; 32 Fr. 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 Gender Identity Not on file Sexual Orientation Not on file documented as of this encounter OR Notes * Anesthesia Postprocedure Evaluation - Cristina Phipps MD - 07/24/2024 7:29 PM CDT Patient: Abiel Fink Procedure Summary Date: 07/24/24 Room / Location: [facility] OR POD 3 ROOM 308 / [facility] OR POD 3 Anesthesia Start: 0802 Anesthesia Stop: 1615 Procedures: CORONARY ARTERY BYPASS GRAFT WITH PUMP x3 (Chest) ENDOSCOPIC VESSEL HARVEST - BURGESS VEIN (Right: Thigh) HARVEST - RADIAL ARTERY (Left: Arm Lower) CLOSURE STERNAL - WITH PLATES (Chest) Diagnosis: CAD, multiple vessel (CAD, 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]) Surgeons: Johnathan Mckee MD Responsible Provider: Cristina Phipps MD Anesthesia Type: general ASA Status: 3 Anesthesia Type: general Last vitals BP (!) 149/123 Pulse 100 Temp 36 ??C (96.8 ??F) (Temporal) Resp 12 SpO2 100% Anesthesia Post Evaluation Patient location during evaluation: ICU Patient participation: complete - patient cannot participate Post-procedure mental status: sedated. Pain score: unable to evaluate Pain management: adequate Airway patency: adequate Cardiovascular status: acceptable and hemodynamically stable Respiratory status: acceptable, ETT, ventilator and intubated Hydration status: acceptable Pt is: normothermic Nausea/Vomiting status: unable to evaluate Comments: Transported to 82ICU fully monitored, critically hooked up, signed out to ICU team, questions fully answered No notable events documented. * Anesthesia Procedure Notes - Cristina Phipps MD - 07/24/2024 12:05 PM CDTAssociated Order(s): EMILE EMILE Date/time: 07/24/2024 9:00 AM Staff: Performed by: Anesthesiologist: Cristina Phipps MD Preprocedure checklist: patient identified, procedure contraindications assessed, procedure consent, risks, benefits and alternatives discussed, monitors and equipment checked, timeout performed and EMILE probe inserted into esophagus using lubricating jelly General procedure Information: Reason for procedure/indications: assessment of surgical repair Performed: with residents Procedure performed at surgeon's request: yes Results discussed with surgeon: yes Images submitted to archive: yes Patient location: OR Intubated: yes Bite blocked placed: yes Probe Insertion: easy Complications: no Probe type: adult Modalities: 2D imaging, 3D imaging, pulsed wave Doppler and color Doppler Billing information: Physician requesting echo: Johnathan Mckee MD CPT code: EMILE placement and diagnostic exam, non-congenital (75265) Echocardiographic and doppler measurements: Ventricles: Left ventricle: Cavity size: normal Thrombus: No Global function: normal LVEF%: 40-50 Right ventricle: Cavity size: mildly dilated Thrombus: No Global function: mildly decreased Interventricular septum: normal Regional function: 1- Basal anteroseptal: normal 2- Basal anterior: normal 3- Basal anterolateral: normal 4- Basal inferolateral: normal 5- Basal inferior: hypokinetic 6- Basal inferoseptal: hypokinetic 7- Mid anteroseptal: normal 8- Mid anterior: normal 9- Mid anterolateral: normal 10- Mid inferolateral: normal 11- Mid inferior: normal 12- Mid inferoseptal: normal 13- Apical anterior: normal 14- Apical lateral: normal 15- Apical inferior: normal 16- Apical septal: normal 17- [place]: normal Valves: Aortic Valve: Annulus: calcified Leaflet morphology: normal Regurgitation: none Mitral valve: Annulus: normal Leaflet morphology anterior: normal Leaflet morphology posterior: normal Regurgitation: mild Tricuspid valve: Annulus: normal Regurgitation: trace Aorta: Ascending aorta: Size: normal Dissection: no Atria: Right atrium: Size: normal Thrombus: no Mass: No Left atrium: Size: normal (normal) Thrombus: no Mass: No Interatrial septum: normal Diastolic function and other findings: Pericardium: normal Left pleural effusion: none Right pleural effusion: normal Postprocedure (follow-up) EMILE exam: LV: unchanged RV: unchanged Aortic valve: unchanged Mitral valve: unchanged Pericardium: unchanged Left pleural: small effusion Right pleural: unchanged Postprocedure (follow-up) EMILE exam comments: S/p CABG x3, mildly improved LV function on dobutamine, valvular function unchanged Attestation Statement: By signing this report the attending anesthesiologist certifies that he or she has personally reviewed and interpreted the echocardiogram and has reviewed and or edited and agrees with the written comments contained within the report. * Anesthesia Procedure Notes - Cristina Phipps MD - 07/24/2024 12:04 PM CDTAssociated Order(s): Central Venous Line Central Venous Line Patient location: OR Indication: central venous access and CVP monitoring Staff: Supervising provider: Cristina Phipps MD Placed by: Resident: Pito Loya MD Procedure prep: Patient position: Trendelenburg. PPE: provider hand hygiene, provider hat/mask, sterile gloves, full body drape, sterile gown, sterile gel and sterile probe covers. Prep solution: chlorhexadine/alcohol was applied to area. Ultrasound Evaluation: Ultrasound was prepped into field. Prior to the procedure, the cannulated vein was evaluated by ultrasound and deemed suitably patent for access.This vessel was accessed using real-time ultrasound guidance and an image was placed in the patient's medical record Central line: Laterality: right Site: internal jugular Catheter type: introducer sheath Catheter size: 9 Fr. Technique: vein located with finder needle, Seldinger technique, wire threaded easily and wire removed intact Venous verification: manometry Post insertion: all ports aspirated, all ports flushed easily, line sutured in place and occlusive dressing applied Chlorhexidine patch applied: yes Number of attempts: 1 PA catheter placement: PA catheter type: oximetric PA catheter size: 8 Fr Placement guided by: pressure tracing changes and verified by EMILE Assessment: Events: patient tolerated procedure well with no complications * Anesthesia Procedure Notes - Cristina Phipps MD - 07/24/2024 12:02 PM CDTAssociated Order(s): Central Venous Line Central Venous Line Patient location: OR Indication: central venous access and CVP monitoring Staff: Supervising provider: Cristina Phipps MD Placed by: Resident: Pito Loya MD Procedure prep: Patient position: Trendelenburg. PPE: provider hand hygiene, provider hat/mask, sterile gloves, sterile gown, full body drape, sterile gel and sterile probe covers. Prep solution: chlorhexadine/alcohol was applied to area. Ultrasound Evaluation: Ultrasound was prepped into field. Central line: Laterality: right Site: internal jugular Catheter type: quad lumen Catheter length: 20 cm Technique: anatomy identified with ultrasound, vein located with finder needle, wire threaded easily, Seldinger technique and wire removed intact Venous verification: manometry, ultrasound confirmation and EMILE confirmation Post insertion: all ports aspirated, all ports flushed easily, line sutured in place and occlusive dressing applied Chlorhexidine patch applied: yes Number of attempts: 1 Assessment: Events: patient tolerated procedure well with no complications * Anesthesia Procedure Notes - Cristina Phipps MD - 07/24/2024 12:01 PM CDTAssociated Order(s): Arterial Line Arterial Line Patient location: OR Indication: continuous blood pressure monitoring and blood sampling needed Ultrasound assisted: yes Staff: Supervising provider: Cristina Phipps MD Placed by: Resident: Pito Loya MD Procedure prep: Prep solution: chlorhexadine/alcohol Prep: provider hat/mask and sterile gloves Arterial line: Catheter size: 20 gauge Catheter length: 3/4 inch Catheter type: wire-guided catheter Seldinger technique: yes Laterality: right Site: radial artery Line secured: tape and Tegaderm Results: good waveform and good blood return Number of attempts: 1 Assessment: Events: patient tolerated procedure well with no complications * Anesthesia Procedure Notes - Cristina Phipps MD - 07/24/2024 10:12 AM CDTAssociated Order(s): Airway Airway Patient location: OR Urgency: elective Indications for airway management: anesthesia Difficult airway: no Staff: Supervising provider: Cristina Phipps MD Placed by: Resident: Pito Loya MD Emergent airway documentation: Risks and benefits discussed: yes Consent obtained: yes Consent given by: patient Airway prep: Preoxygenated: yes Patient position: sniffing Spontaneous ventilation during airway: absent Sedation level during airway: GA Final airway details: Final airway type: endotracheal airway Tube type: ETT ETT size: 8.0 mm Cuffed: yes Technique used for successful ETT placement: video laryngoscopy Insertion site: oral Blade type: Precious Video blade type: Carrizales Blade size: 4 Cormack-Lehane (video): grade I - full view of glottis Cuff inflated with: air ETT to teeth: 22 cm Placement verified by: auscultation and CO2 detection Airway secured with: silk tape Number of attempts: 1 * Anesthesia Preprocedure Evaluation - Cristina Phipps MD - 07/14/2024 10:53 AM CDT Images from the original note were not included. 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 Pertinent negatives: [place] ; CABG ; systolic/diastolic dysfunction w/o CHF [...] [facility]. H/H 13.3/1.2, PLT 107 [...] Follow up note 07/20/24 Labs at the [place] (in [place] - overview documents summary): WBC: [...] 0.5-0.9 % drops -- 05/12/24 -- Nasir aNgel MD chlorhexidine (PERIDEX) 0.12 % solution -- 07/19/24 07/24/24 Johnathan Mckee MD Apply 15 [...] (BACTROBAN) 2 % ointment -- 07/19/24 07/24/24 Johnathan Mckee MD Apply to [...] for requested labs within last 30 days. DOS Physical Exam Medical history, medications, and allergies reviewed. Attestation: This PAT evaluation 07/24/2024. Airway Exam: Mallampati: II Cervical ROM: FROM Cardiovascular Exam: Rate: regular Pulmonary Exam: LCTA, bilat Dental Exam: Missing and implants Current state: Patient's current state is cooperative and interactive. Anesthesia Plan ASA 3 My patient is approved for the Anesthesia Controlled Medication protocol when under care of a ADULT CAREGIVER Planned anesthesia: General Team communication plan: oral ET tube Invasive Monitors Planned: Invasive monitors planned: arterial line, central venous catheter, pulmonary artery catheter and EMILE. Induction: Induction: intravenous. Postoperative Plan: Postoperative administration opioids intended. Postoperative mechanical ventilation intended. Patient's planned disposition post procedure is ICU. No trial extubation planned. Informed Consent: Discussed plan with resident. Anesthesia plan and risks discussed with patient and son. Plan and Consent Comments: Patient last took ozempic one week ago. No history of esophageal disease. Does report that he was told 20 years ago that he had a hiatal hernia, however has not experienced significant symptoms, and requires anti GERD medication rarely. Consent and Attending signature: I and/or my designee have discussed the anesthesia plan, benefits, possible alternatives, parental presence at time of induction (if indicated), and clinically relevant risks that may include dental injury, unintentional awareness, and/or other complications. The patient and/or parent/legal guardian understand, and agree to proceed. All questions answered. documented in this encounter Miscellaneous Notes * Post-Perfusion - Saud Lange CCP - 07/24/2024 3:29 PM CDT Medications midazolam PF (mg) Date/Time Rate/Dose/Volume Action Admin User Audit 07/24/24 0809 2 mg Given Cristina Phipps MD lidocaine (cardiac) syringe 2 % (mg) Date/Time Rate/Dose/Volume Action Admin User Audit 07/24/24 0815 60 mg Given Cristina Phipps MD propofol (mcg/kg/min) Dosing weight: 110.2 Date/Time Rate/Dose/Volume Action Admin User Audit 07/24/24 0815 50 mg Given Cristina Phipps MD 1145 50 mg Given Cristina Phipps MD 1435 50 mcg/kg/min - 33.06 mL/hr New Bag Pito Loya MD 1518 30 mcg/kg/min - 19.836 mL/hr Rate Change Pito Loya MD fentaNYL (mcg) Date/Time Rate/Dose/Volume Action Admin User Audit 07/24/24 0809 100 mcg Given Cristina Phipps MD 0932 400 mcg Given Cristina Phipps MD 1003 250 mcg Given Cristina Phipps MD 1025 250 mcg Given Cristina Phipps MD edited 1142 500 mcg Given Cristina Phipps MD 1358 500 mcg Given Pito Loya MD rocuronium (mg) Date/Time Rate/Dose/Volume Action Admin User Audit 07/24/24 0815 100 mg Given Cristina Phipps MD 0937 100 mg Given Cristina Phipps MD phenylephrine 100 mcg/mL (mcg/kg/min) Dosing weight: 110.2 Date/Time Rate/Dose/Volume Action Admin User Audit 07/24/24 0814 100 mcg Given Cristina Phipps MD 0815 0.25 mcg/kg/min - 16.53 mL/hr New Bag Cristina Phipps MD 0858 Stopped Cristina Phipps MD norepinephrine (mcg) Date/Time Rate/Dose/Volume Action Admin User Audit 07/24/24 1056 8 mcg Given Cristina Phipps MD 1143 16 mcg Given Cristina Phipps MD 1259 4 mcg Given Cristina Phipps MD heparin 1,000 unit/ml (Units) Date/Time Rate/Dose/Volume Action Admin User Audit 07/24/24 1052 35,000 Units Given Cristina Phipps MD heparin injection 1,000 unit/mL (Units) Date/Time Rate/Dose/Volume Action Admin User Audit 07/24/24 0940 5,000 Units Given Lange, Saud, CCP tranexamic acid (mg) Date/Time Rate/Dose/Volume Action Admin User Audit 07/24/24 1058 2,000 mg Given Cristina Phipps MD calcium chloride (g) Date/Time Rate/Dose/Volume Action Admin User Audit 07/24/24 1054 0.5 g Given Cristina Phipps MD 1407 0.5 g Given Pito Loya MD calcium chloride injection (g) Date/Time Rate/Dose/Volume Action Admin User Audit 07/24/24 1352 1 g Given Saud Lange, CCP phenylephrine (GER-SYNEPHRINE) injection (mcg) Date/Time Rate/Dose/Volume Action Admin User Audit 07/24/24 1143 100 mcg Given Chito Langeell, CCP 1156 50 mcg Given Chito Langeell, CCP 1159 50 mcg Given Chito Langeell, CCP 1204 50 mcg Given Chito Langeell, CCP 1208 100 mcg Given Chito Langeell, CCP 1210 50 mcg Given Chito Langeell, CCP 1215 50 mcg Given Chito Langeell, CCP 1217 50 mcg Given Saud Lange, CCP lidocaine PF (XYLOCAINE) injection 2 % (mg) Date/Time Rate/Dose/Volume Action Admin User Audit 07/24/24 1326 100 mg Given Saud Lange, CCP anticoagulant citrate dextrose solution A injection (mL) Date/Time Rate/Dose/Volume Action Admin User Audit 07/24/24 0930 1,000 mL (over 720 min) Given Saud Lange, CCP potassium arrest solution 2 mEq/mL (mEq) Date/Time Rate/Dose/Volume Action Admin User Audit 07/24/24 1141 63.4 mEq Given Saud Lange, CCP sodium bicarbonate injection 1 mEq/mL (mEq) Date/Time Rate/Dose/Volume Action Admin User Audit 07/24/24 1149 50 mEq (over 5 min) Given Saud Lange, CCP magnesium sulfate 5 g in 0.9% sodium chloride 40 mL (additives solution) (mL) Date/Time Rate/Dose/Volume Action Admin User Audit 07/24/24 1141 46.3 mL Given Saud Lange, CCP norepinephrine in dextrose 5% (LEVOPHED) 8,000 mcg/250 mL (32 mcg/mL) infusion (premix) (mcg/kg/min) Dosing weight: 110.2 Date/Time Rate/Dose/Volume Action Admin User Audit 07/24/24 0858 0.04 mcg/kg/min - 8.265 mL/hr New Bag Cristina Phipps MD edited 0923 Stopped Cristina Phipps MD 0929 0.03 mcg/kg/min - 6.199 mL/hr Restarted Cristina Phipps MD 0935 Stopped Cristina Phipps MD 0940 0.02 mcg/kg/min - 4.133 mL/hr Restarted Cristina Phipps MD 0947 Stopped Cristina Phipps MD 1018 0.02 mcg/kg/min - 4.133 mL/hr Restarted Cristina Phipps MD 1020 0.04 mcg/kg/min - 8.265 mL/hr Rate Change Cristina Phipps MD 1026 0.02 mcg/kg/min - 4.133 mL/hr Rate Change Cristina Phipps MD 1033 0.03 mcg/kg/min - 6.199 mL/hr Rate Change Cristina Phipps MD 1043 0.02 mcg/kg/min - 4.133 mL/hr Rate Change Cristina Phipps MD 1144 Stopped Cristina Phipps MD 1250 0.02 mcg/kg/min - 4.133 mL/hr Restarted Cristina Phipps MD 1258 0.04 mcg/kg/min - 8.265 mL/hr Rate Change Cristina Phipps MD 1305 0.02 mcg/kg/min - 4.133 mL/hr Rate Change Pito Loya MD 1349 0.04 mcg/kg/min - 8.265 mL/hr Rate Change Pito Loya MD 1358 Stopped Pito Loya MD 1407 0.03 mcg/kg/min - 6.199 mL/hr Restarted Pito Loya MD 1409 0.05 mcg/kg/min - 10.331 mL/hr Rate Change Pito Loya MD 1427 0.02 mcg/kg/min - 4.133 mL/hr Rate Change Pito Loya MD 1433 0.04 mcg/kg/min - 8.265 mL/hr Rate Change Pito Loya MD 1441 0.06 mcg/kg/min - 12.397 mL/hr Rate Change Pito Loya MD 1458 0.04 mcg/kg/min - 8.265 mL/hr Rate Change Pito Loya MD 1509 0.05 mcg/kg/min - 10.331 mL/hr Rate Change Pito Loya MD 1514 0.06 mcg/kg/min - 12.397 mL/hr Rate Change Pito Loya MD ceFAZolin (ANCEF) 2,000 mg/20 mL in sterile water (premix) 2,000 mg (mg) Dosing weight: 110.2 Date/Time Rate/Dose/Volume Action Admin User Audit 07/24/24 0909 2,000 mg Given Cristina Phipps MD edited 1302 2,000 mg Given Cristina Phipps MD vancomycin 1500 mg/515 mL in sodium chloride 0.9% (premix) 1,500 mg (mg) Dosing weight: 110.2 Date/Time Rate/Dose/Volume Action Admin User Audit 07/24/24 0852 1,500 mg (over 60 min) Given Cristina Phipps MD edited glycopyrrolate (mcg) Date/Time Rate/Dose/Volume Action Admin User Audit 07/24/24 0928 200 mcg Given Cristina Phipps MD DOBUTamine in dextrose 5% (DOBUTREX) 1,000 mg/250 mL (4,000 mcg/mL) infusion (premix) (mcg/kg/min) Dosing weight: 110.2 Date/Time Rate/Dose/Volume Action Admin User Audit 07/24/24 1341 5 mcg/kg/min - 8.265 mL/hr New Bag Pito Loya MD edited nitroglycerin in dextrose 5% 50 mg/250 mL (200 mcg/mL) infusion (premix) (mcg/min) Dosing weight: 110.2 Date/Time Rate/Dose/Volume Action Admin User Audit 07/24/24 1349 10 mcg/min - 3 mL/hr New Bag Pito Loya MD edited 1358 50 mcg/min - 15 mL/hr Rate Change Pito Loya MD 1407 30 mcg/min - 9 mL/hr Rate Change Pito Loya MD 1410 10 mcg/min - 3 mL/hr Rate Change Pito Loya MD 1430 20 mcg/min - 6 mL/hr Rate Change Pito Loya MD 1439 10 mcg/min - 3 mL/hr Rate Change Pito Loya MD protamine (mg) Date/Time Rate/Dose/Volume Action Admin User Audit 07/24/24 1356 250 mg (over 5 min) Given Pito Loya MD EPINEPHrine 0.1 mg/mL (mcg) Date/Time Rate/Dose/Volume Action Admin User Audit 07/24/24 1400 5 mcg Given Pito Loya MD 1401 5 mcg Given Pito Loya MD 1405 5 mcg Given Pito Loya MD 1408 5 mcg Given Pito Loya MD 1424 10 mcg Given Pito Loya MD ondansetron PF (ZOFRAN) 2 mg/mL injection (mg) Date/Time Rate/Dose/Volume Action Admin User Audit 07/24/24 1524 4 mg Given Pito Loya MD albumin 25 % (mL) Date/Time Rate/Dose/Volume Action Admin User Audit 07/24/24 0940 New Bag Saud Lange, CCP 0941 50 mL Stopped Saud Lange CCP albumin 5 % (mL) Date/Time Rate/Dose/Volume Action Admin User Audit 07/24/24 1144 New Bag Saud Lange, CCP 1145 250 mL Anesthesia Volume Adjustment Saud Lange, CCP 1213 250 mL Anesthesia Volume Adjustment Saud Lange, CCP sodium chloride 0.9% bolus (mL) Date/Time Rate/Dose/Volume Action Admin User Audit 07/24/24 1325 New Bag Saud Lange, CCP 1326 300 mL Stopped Saud Lange CCP LR (mL) Date/Time Rate/Dose/Volume Action Admin User Audit 07/24/24 0858 New Bag Cristina Phipps MD 1039 1,000 mL Anesthesia Volume Adjustment Pito Loya MD Lactated Ringer's (LR) infusion (mL/hr) Dosing weight: 110.2 Date/Time Rate/Dose/Volume Action Admin User Audit 07/24/24 0802 100 mL/hr Rate Verify Cristina Phipps MD edited PRBC - CROSSMATCHED [id number] (mL) Date/Time Rate/Volume Action Admin User Audit 07/24/24 1233 New Bag Cristina Phipps MD 1234 250 mL Stopped Cristina Phipps MD FFP - CROSSMATCHED [id number] (mL) Date/Time Rate/Volume Action Admin User Audit 07/24/24 1440 New Bag Pito Loya MD 1441 150 mL Stopped Pito Loya MD PLATELETS - CROSSMATCHED [id number] (mL) Date/Time Rate/Volume Action Admin User Audit 07/24/24 1440 New Bag Pito Loya MD 1441 200 mL Stopped Pito Loya MD Events Date Time Event 07/24/2024 0611 Patient in Pre-Op 0715 Start data Collection 0801 Patient in Room 0802 Anesthesia Start 0802 Start Data Collection 0809 Perfusion Ready 0815 Induction The patient was reevaluated immediately before moderate or deep sedation use and before anesthesia induction. 0817 Intubation 0833 EMILE placed 0858 Anesthesia Ready 0930 Cell Saver Start 0936 Lungs Down 0937 Procedure Start 0937 Incision Start 0937 Sternotomy 1135 CPB ON 1136 Cooling Start 1141 Aortic Clamp ON 1318 Rewarming Start 1318 Cooling Stop 1325 Aortic Clamp OFF 1336 Defibrillation Vfib. 10J x2, 20J x2 1356 CPB OFF 1529 Stop Data Collection 1529 Perfusion Complete Cosigned by Cristina Phipps MD at 07/24/2024 6:58 PM CDT documented in this encounter Plan of Treatment Not on file documented as of this encounter Procedures Procedure Name Priority Date/Time Associated Diagnosis Comments NM AN PROCEDURE PLACEHOLDER Routine 07/24/2024 12:05 PM CDT NM AN PROCEDURE PLACEHOLDER Routine 07/24/2024 12:04 PM CDT PULMONARY ARTERY CATH Routine 07/24/2024 12:04 PM CDT BW AN SHEATH INTRODUCER PERFORMABLE Routine 07/24/2024 12:04 PM CDT NM AN PROCEDURE PLACEHOLDER Routine 07/24/2024 12:02 PM CDT NM AN CENTRAL LINE QUADRUPLE LUMEN Routine 07/24/2024 12:02 PM CDT NM AN PROCEDURE PLACEHOLDER Routine 07/24/2024 12:01 PM CDT NM AN PROCEDURE PLACEHOLDER Routine 07/24/2024 10:12 AM CDT NM AN ELECTIVE ENDOTRACHEAL AIRWAY Routine 07/24/2024 10:12 AM CDT documented in this encounter Results * NM AN PROCEDURE PLACEHOLDER (07/24/2024 12:05 PM CDT) Anatomical Region Laterality Modality Other Narrative 07/24/2024 12:05 PM CDT Cristina Phipps MD ? 07/24/2024 ??7:29 PM EMILE Date/time: 07/24/2024 9:00 AM Staff: Performed by: Anesthesiologist: Cristina Phipps MD Preprocedure checklist: patient identified, procedure contraindications assessed, procedure consent, risks, benefits and alternatives discussed, monitors and equipment checked, timeout performed and EMILE probe inserted into esophagus using lubricating jelly General procedure Information: Reason for procedure/indications: assessment of surgical repair Performed: with residents Procedure performed at surgeon's request: yes Results discussed with surgeon: yes Images submitted to archive: ??yes Patient location: OR Intubated: yes Bite blocked placed: yes Probe Insertion: easy Complications: no Probe type: adult Modalities: 2D imaging, 3D imaging, pulsed wave Doppler and color Doppler Billing information: Physician requesting echo: Johnathan Mckee MD CPT code: EMILE placement and diagnostic exam, non-congenital (97742) Echocardiographic and doppler measurements: Ventricles: Left ventricle: Cavity size: normal Thrombus: No Global function: normal LVEF%: 40-50 Right ventricle: Cavity size: mildly dilated Thrombus: No Global function: mildly decreased Interventricular septum: normal Regional function: 1- Basal anteroseptal: normal 2- Basal anterior: normal 3- Basal anterolateral: normal 4- Basal inferolateral: normal 5- Basal inferior: hypokinetic 6- Basal inferoseptal: hypokinetic 7- Mid anteroseptal: normal 8- Mid anterior: normal 9- Mid anterolateral: normal 10- Mid inferolateral: normal 11- Mid inferior: normal 12- Mid inferoseptal: normal 13- Apical anterior: normal 14- Apical lateral: normal 15- Apical inferior: normal 16- Apical septal: normal 17- [place]: normal Valves: Aortic Valve: Annulus: calcified Leaflet morphology: normal Regurgitation: none Mitral valve: Annulus: normal Leaflet morphology anterior: normal Leaflet morphology posterior: normal Regurgitation: mild Tricuspid valve: Annulus: normal Regurgitation: trace Aorta: Ascending aorta: Size: normal Dissection: no Atria: Right atrium: Size: normal Thrombus: no Mass: No Left atrium: Size: normal (normal) Thrombus: no Mass: No Interatrial septum: normal Diastolic function and other findings: Pericardium: normal Left pleural effusion: none Right pleural effusion: normal Postprocedure (follow-up) EMILE exam: LV: unchanged RV: unchanged Aortic valve: unchanged Mitral valve: unchanged Pericardium: unchanged Left pleural: small effusion Right pleural: unchanged Postprocedure (follow-up) EMILE exam comments: S/p CABG x3, mildly improved LV function on dobutamine, valvular function unchanged Attestation Statement: By signing this report the attending anesthesiologist certifies that he or she has personally reviewed and interpreted the echocardiogram and has reviewed and or edited and agrees with the written comments contained within the report. us Cristina Phipps MD ANESTHESIA ORDERABLES Fin al Result * BW AN SHEATH INTRODUCER PERFORMABLE, PULMONARY ARTERY CATH, NM AN PROCEDURE PLACEHOLDER (2:04 PM CDT) Narrative Cristina Phipps MD - 07/24/2024 12:04 PM CDT Cristina Phipps MD ? 07/24/2024 12:05 PM Central Venous Line Patient location: OR Indication: central venous access and CVP monitoring Staff: Supervising provider: Cristina Phipps MD Placed by: Resident: Pito Loya MD Procedure prep: Patient position: Trendelenburg. PPE: provider hand hygiene, provider hat/mask, sterile gloves, full body drape, sterile gown, sterile gel and sterile probe covers. Prep solution: chlorhexadine/alcohol was applied to area. Ultrasound Evaluation: Ultrasound was prepped into field. Prior to the procedure, the cannulated vein was evaluated by ultrasound and deemed suitably patent for access.This vessel was accessed using real-time ultrasound guidance and an image was placed in the patient's medical record Central line: Laterality: right Site: internal jugular Catheter type: introducer sheath Catheter size: 9 Fr. Technique: vein located with finder needle, Seldinger technique, wire threaded easily and wire removed intact Venous verification: manometry Post insertion: all ports aspirated, all ports flushed easily, line sutured in place and occlusive dressing applied Chlorhexidine patch applied: yes Number of attempts: 1 PA catheter placement: PA catheter type: oximetric PA catheter size: 8 Fr Placement guided by: pressure tracing changes and verified by EMILE Assessment: Events: patient tolerated procedure well with no complications Cristina Phipps MD ANESTHESIA ORDERABLES Fin al Result * NM AN CENTRAL LINE QUADRUPLE LUMEN, NM AN PROCEDURE PLACEHOLDER (07/24/2024 12:02 PM CDT) Narrative Cristina Phipps MD - 07/24/2024 12:02 PM CDT Cristina Phipps MD ? 07/24/2024 12:04 PM Central Venous Line Patient location: OR Indication: central venous access and CVP monitoring Staff: Supervising provider: Cristina Phipps MD Placed by: Resident: Pito Loya MD Procedure prep: Patient position: Trendelenburg. PPE: provider hand hygiene, provider hat/mask, sterile gloves, sterile gown, full body drape, sterile gel and sterile probe covers. Prep solution: chlorhexadine/alcohol was applied to area. Ultrasound Evaluation: Ultrasound was prepped into field. Central line: Laterality: right Site: internal jugular Catheter type: quad lumen Catheter length: 20 cm Technique: anatomy identified with ultrasound, vein located with finder needle, wire threaded easily, Seldinger technique and wire removed intact Venous verification: manometry, ultrasound confirmation and EMILE confirmation Post insertion: all ports aspirated, all ports flushed easily, line sutured in place and occlusive dressing applied Chlorhexidine patch applied: yes Number of attempts: 1 Assessment: Events: patient tolerated procedure well with no complications us Cristina Phipps MD ANESTHESIA ORDERABLES Fin al Result * NM AN PROCEDURE PLACEHOLDER (07/24/2024 12:01 PM CDT) Cristina Ware MD - 07/24/2024 12:01 PM CDT Cristina Phipps MD ? 07/24/2024 12:02 PM Arterial Line Patient location: OR Indication: continuous blood pressure monitoring and blood sampling needed Ultrasound assisted: yes Staff: Supervising provider: Cristina Phipps MD Placed by: Resident: Pito Loya MD Procedure prep: Prep solution: chlorhexadine/alcohol Prep: provider hat/mask and sterile gloves Arterial line: Catheter size: 20 gauge Catheter length: 3/4 inch Catheter type: wire-guided catheter Seldinger technique: yes Laterality: right Site: radial artery Line secured: tape and Tegaderm Results: good waveform and good blood return Number of attempts: 1 Assessment: Events: patient tolerated procedure well with no complications us Cristina Phipps MD ANESTHESIA ORDERABLES Fin al Result * NM AN ELECTIVE ENDOTRACHEAL AIRWAY, NM AN PROCEDURE PLACEHOLDER (07/24/2024 10:12 AM CDT) Cristina Ware MD - 07/24/2024 10:12 AM CDT Cristina Phipps MD ? 07/24/2024 10:13 AM Airway Patient location: OR Urgency: elective Indications for airway management: anesthesia Difficult airway: no Staff: Supervising provider: Cristina Phipps MD Placed by: Resident: Pito Loya MD Emergent airway documentation: Risks and benefits discussed: yes Consent obtained: yes Consent given by: patient Airway prep: Preoxygenated: yes Patient position: sniffing Spontaneous ventilation during airway: absent Sedation level during airway: GA Final airway details: Final airway type: endotracheal airway Tube type: ETT ETT size: 8.0 mm Cuffed: yes Technique used for successful ETT placement: video laryngoscopy Insertion site: oral Blade type: Precious Video blade type: Carrizales Blade size: 4 Cormack-Lehane (video): grade I - full view of glottis Cuff inflated with: air ETT to teeth: 22 cm Placement verified by: auscultation and CO2 detection Airway secured with: silk tape Number of attempts: 1 Cristina Phipps MD ANESTHESIA ORDERABLES Fin al Result documented in this encounter Visit Diagnoses Not on filedocumented in this encounter Administered Medications Inactive Administered Medications - up to 3 most recent administrations Medication Order MAR Action Action Date Dose Rate Site albumin 25 % bottle intravenous, Continuous PRN, Starting on Wed07/24/24 at 0940, Anesthesia Intra-op New Bag 07/24/2024 9:40 AM CDT albumin 5 % bottle intravenous, Continuous PRN, Starting on Wed07/24/24 at 1144, Anesthesia Intra-op New Bag 07/24/2024 11:44 AM CDT calcium chloride IV syringe intravenous, As needed, Starting on Wed07/24/24 at 1054, Anesthesia Intra-op Given 07/24/2024 2:07 PM CDT 0.5 g Given 07/24/2024 10:54 AM CDT 0.5 g calcium chloride IV syringe intravenous, As needed, Starting on Wed07/24/24 at 1352, Anesthesia Intra-op Given 07/24/2024 1:52 PM CDT 1 g ceFAZolin (ANCEF) 2,000 mg/20 mL in sterile water (premix) 2,000 mg 2,000 mg, intravenous, at 400 mL/hr, Administer over 3 Minutes, Once, On Wed07/24/24 at 0845, For 1 dose, Intra-Op, Administer within 60 minutes of incision., Indications: Prophylaxis, SurgicalIndications:Prophylaxis, Surgical Given 07/24/2024 1:02 PM CDT 2,000 mg Given 07/24/2024 9:09 AM CDT 2,000 mg citrate dextrose solution (ACD-A) infusion intravenous, As needed, Starting on Wed07/24/24 at 0930, Anesthesia Intra-op Given 07/24/2024 9:30 AM CDT 1,000 mL DOBUTamine in dextrose 5% (DOBUTREX) 1,000 mg/250 [...] 1:41 PM CDT 5 mcg/kg/min 8.265 mL/hr EPINEPHrine syringe (ADRENALIN) 0.1 mg/mL intravenous, As needed, Starting on Wed07/24/24 at 1408, Anesthesia Intra-op Given 07/24/2024 2:24 PM CDT 10 mcg Given 07/24/2024 2:08 PM CDT 5 mcg Given 07/24/2024 2:05 PM CDT 5 mcg fentaNYL (SUBLIMAZE) preservative free injection intravenous, As needed, Starting on Wed07/24/24 at 1003, Anesthesia Intra-op Given 07/24/2024 1:58 PM CDT 500 mcg Given 07/24/2024 11:42 AM CDT 500 mcg Given 07/24/2024 10:25 AM CDT 250 mcg glycopyrrolate (ROBINUL) injection intravenous, Administer over 1 Minutes, As needed, Starting on Wed07/24/24 at 0928, Anesthesia Intra-op Given 07/24/2024 9:28 AM CDT 200 mcg heparin 1,000 unit/mL injection intravenous, As needed, Starting on Wed07/24/24 at 0940, Anesthesia Intra-op Given 07/24/2024 9:40 AM CDT 5,000 Units heparin 1,000 unit/mL injection intravenous, As needed, Starting on Wed07/24/24 at 1052, Anesthesia Intra-op Given 07/24/2024 10:52 AM CDT 35,000 Units Lactated Ringer's (LR) infusion 30 mL/hr, intravenous, Continuous, Starting on Wed07/24/24 at 0715, Pre-Op Rate/Dose Verify 07/24/2024 8:02 AM CDT 100 mL/hr New Bag 07/24/2024 6:39 AM CDT 30 mL/hr 30 mL/hr Lactated Ringer's (LR) infusion intravenous, Continuous PRN, Starting on Wed07/24/24 at 0858, Anesthesia Intra-op New Bag 07/24/2024 8:58 AM CDT lidocaine (cardiac) (XYLOCAINE) preservative free injection intravenous, As needed, Starting on Wed07/24/24 at 0815, Anesthesia Intra-op, Indications: Ventricular ArrhythmiasIndications:Ventr icular Arrhythmias Given 07/24/2024 8:15 AM CDT 60 mg lidocaine (PF) (XYLOCAINE) 20 mg/mL (2 %) preservative free injection intravenous, As needed, Starting on Wed07/24/24 at 1326, Anesthesia Intra-op Given 07/24/2024 1:26 PM CDT 100 mg magnesium 5 g in 0.9% sodium chloride solution intravenous, As needed, Starting on Wed07/24/24 at 1141, Anesthesia Intra-op Given 07/24/2024 11:41 AM CDT 46.3 mL midazolam (VERSED) 2 mg/2 mL preservative free injection intravenous, Administer over 2 Minutes, As needed, Starting on Wed07/24/24 at 0809, Anesthesia Intra-op Given 07/24/2024 8:09 AM CDT 2 mg nitroglycerin in dextrose 5% 50 mg/250 mL (200 mcg/mL) infusion (premix) 0-400 mcg/min (0-120 mL/hr), 0.2 mg/mL, intravenous, Titrated, Starting on Wed07/24/24 at 1415, Until Wed07/24/24 at 1616, Indications: hypertension, Initial rate: 10 mcg/min, Titrate: Up/Down, Titrate by: 10 mcg/min, Every: 5 minutes, Goal: SBP, SBP Goal: 130-140 mmHg, RoutineIndications:hypertens ion Rate/Dose Verify 07/24/2024 4:09 PM CDT 10 mcg/min 3 mL/hr Rate/Dose Change 07/24/2024 2:39 PM CDT 10 mcg/min 3 mL/hr Rate/Dose Change 07/24/2024 2:30 PM CDT 20 mcg/min 6 mL/hr norepinephrine (LEVOPHED) injection intravenous, As needed, Starting on Wed07/24/24 at 1056, Anesthesia Intra-op Given 07/24/2024 12:59 PM CDT 4 mcg Given 07/24/2024 11:43 AM CDT 16 mcg Given 07/24/2024 10:56 AM CDT 8 mcg norepinephrine in dextrose 5% [...] PM CDT 0.08 mcg/kg/min 16 .53 mL/hr ondansetron (ZOFRAN) injection intravenous, Administer over 2 Minutes, As needed, Starting on Wed07/24/24 at 1524, Anesthesia Intra-op Given 07/24/2024 3:24 PM CDT 4 mg phenylephrine (GER-SYNEPHRINE) 1 mg/10 mL (100 mcg/mL) in sodium chloride 0.9% (premix) intravenous, Continuous PRN, Starting on Wed07/24/24 at 0815, Anesthesia Intra-op New Bag 07/24/2024 8:15 AM CDT 0.25 mcg/kg/min 16.53 mL/hr Given 07/24/2024 8:14 AM CDT 100 mcg phenylephrine (GER-SYNEPHRINE) injection intravenous, As needed, Starting on Wed07/24/24 at 1143, Anesthesia Intra-op Given 07/24/2024 12:17 PM CDT 50 mcg Given 07/24/2024 12:15 PM CDT 50 mcg Given 07/24/2024 12:10 PM CDT 50 mcg potassium chloride 2 mEq/mL arrest solution intracardiac, As needed, Starting on Wed07/24/24 at 1141, Anesthesia Intra-op Given 07/24/2024 11:41 AM CDT 63.4 mEq propofoL (DIPRIVAN) 10 mg/mL IV intravenous, As needed, Starting on Wed07/24/24 at 0815, Anesthesia Intra-op Rate/Dose Change 07/24/2024 3:18 PM CDT 30 mcg/kg/min 19.836 mL/hr New Bag 07/24/2024 2:35 PM CDT 50 mcg/kg/min 33.06 mL/h r Given 07/24/2024 11:45 AM CDT 50 mg protamine injection intravenous, As needed, Starting on Wed07/24/24 at 1356, Anesthesia Intra-op, Indications: Heparin ToxicityIndications:Heparin Toxicity Given 07/24/2024 1:56 PM CDT 250 mg rocuronium (ZEMURON) injection intravenous, As needed, Starting on Wed07/24/24 at 0815, Anesthesia Intra-op Given 07/24/2024 9:37 AM CDT 100 mg Given 07/24/2024 8:15 AM CDT 100 mg sodium bicarbonate 8.4 % (1 mEq/mL) injection intravenous, Administer over 5 Minutes, As needed, Starting on Wed07/24/24 at 1149, Anesthesia Intra-op Given 07/24/2024 11:49 AM CDT 50 mEq sodium chloride 0.9% bolus intravenous, Continuous PRN, Starting on Wed07/24/24 at 1325, Anesthesia Intra-op New Bag 07/24/2024 1:25 PM CDT sugammadex (BRIDION) 100 mg/mL intravenous solution intravenous, As needed, Starting on Wed07/24/24 at 1547, Anesthesia Intra-op Given 07/24/2024 3:47 PM CDT 200 mg tranexamic acid (CYKLOKAPRON) 1,000 mg/10 mL (100 mg/mL) solution intravenous, As needed, Starting on Wed07/24/24 at 1058, Anesthesia Intra-op Given 07/24/2024 10:58 AM CDT 2,000 mg Transfuse plasma Timed New Bag 07/24/2024 2:40 PM CDT Transfuse platelets Timed New Bag 07/24/2024 2:40 PM CDT Transfuse RBC Timed New Bag 07/24/2024 12:33 PM CDT vancomycin 1500 mg/515 mL in sodium chloride 0.9% (premix) 1,500 mg 1,500 mg, intravenous, Administer over 90 Minutes, Once, On Wed07/24/24 at 0845, For 1 dose, Intra-Op, Administer within 120 minutes of incision., Indications: Prophylaxis, SurgicalIndications:Prophylaxis, Surgical Given 07/24/2024 8:52 AM CDT 1,500 mg documented in this encounter Care Teams 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
--- OUTSIDE RECORDS SUMMARY | 2024-11-17 04:30 | XMS_ITS | Encounter Summary ---
Author Organization [facility] Address [address] [place] [address] Phone Care Team Providers [employer] Name Role Phone Juan Retana MD Primary Care Provider [phone] Reason for Visit * Consultation (Routine) - Closed Specialty Diagnoses / Procedures Referred By Su garber Referred To Contact Ophthalmology Diagnoses Senile ectropion of left lower eyelid [facility], [address] [address] Phone: tel: fax: Carlos Felix MD [address] [place] [id number] Phone: tel: fax: Referral ID Status Reason Start Date Expiration Date V isits Requested Visits Authorized [id number] Closed Specialty Services Required 05/15/2020 05/21/2021 [id number] Encounter Details Date Type Department Care Team (Late st Contact Info) Description 06/11/2020 10:00 AM CDT Office Visit [facility] Ophthalmology [address] [place] [address] Outpatient Health 6th [place] [address] Carlos Felix MD [address] [place] [id number] Senile ectropion of both lower eyelids (Primary Dx); Senile ectropion of left lower eyelid; Lesion of eyelid of both eyes Social History Tobacco Use Types Packs/Day Years Used Date Smoking Tobacco: Former Cigarettes Q uit: 06/11/1980 Smokeless Tobacco: Never Sex and Gender Information Value Date Recorded Sex Assigned at Not on file 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 Gender: male : 1950 Primary Care Provider: Juan Retana MD Referring Provider: [facility]* Problem List Items Addressed This Visit Eye/Vision Problems Senile ectropion of both lower eyelids - Primary Lesion of eyelid of both eyes Other Visit Diagnoses Senile ectropion of left lower eyelid HPI: HPI New pt referred by [place] for ectropion BLL Mr. Fink is a 70 yo male who presents for BLL ectropion. He states that he has constant tearing, butdenies any pain/discomfort. He also notes occasional crusting in lateral corners. No complaints about [facility]. Onset was many years ago. Also notes bilateral lower eyelid lesions that are irritating. Last edited by Carlos Felix MD on 06/11/2020 2:38 PM. (History) Examination: Base Eye Exam Visual Acuity (Snellen - Linear) Right Left Dist cc 20/25 20/20 -1 Correction: Glasses Tonometry (Tonopen, 10:05 AM) Right Left Pressure 18 14 Pupils Pupils Dark Light Shape React APD Right PERRL 4 3 Round Brisk None Left PERRL 4 3 Round Brisk None Visual Camacho (Counting fingers) Right Left Full Full Extraocular Movement Right Left Full Full Neuro/Psych Oriented x3: Yes Mood/Affect: Normal Slit Lamp and Fundus Exam External Exam Right Left External Normal Normal Slit Lamp Exam Right Left Lids/Lashes Ectropion lid lesions Ectropion lid lesions Conjunctiva/Sclera White and quiet White and quiet Cornea Clear Clear Anterior Chamber Deep and quiet Deep and quiet Iris Round and reactive Round and reactive Lens Clear Clear Vitreous Normal Normal Impression: Bilateral lower eyelid ectropion with epiphora and ocular irritation. Additionally, he notes bilateral lid lesions with irritation. Plan for ectropion repair both eyes (OU) and lesion excision both eyes (OU). I have personally examined the patient, participated in all aspects of their care, and formulated the treatment plan. documented in this encounter Plan of Treatment Not on file documented as of this encounter Visit Diagnoses Diagnosis Senile ectropion of both lower eyelids- Primary Senile ectropion of left lower eyelid Lesion of eyelid of both eyes documented in this encounter Historical Medications * This list may reflect changes made after this encounter. omeprazole (PriLOSEC) 20 mg capsule Take 1 capsule (20 mg total) by mouth every morning insulin NPH (HumuLIN N, NovoLIN N) 100 unit/mL injection Inject under the skin Novalog 06/23/2020 insulin glargine (LANTUS) 100 unit/mL injectionIndicati ons:type 2 diabetes mellitus Inject 90 Units under the skin every morning 07/14/2024 pregabalin (LYRICA) 200 mg capsuleIndication s:Diabetic Peripheral Neuropathy Take 1 capsule (200 mg total) by mouth 2 (two) times a day 08/11/2024 lisinopriL (PRINIVIL,ZESTRIL ) 20 mg tabletIndications :hypertension Take 20 mg by mouth every morning 07/14/2024 metFORMIN (GLUCOPHAGE) 1,000 mg tabletIndications :type 2 diabetes mellitus Take 1 tablet (1,000 mg total) by mouth 2 (two) times a day with meals 08/11/2024 added in this encounter Orders Outpatient Referral Count Last Ordered Date st Ordered Date AMB REFERRAL TO OPHTHALMOLOGY 1 06/11/2020 documented in this encounter Eye Exam Visual Acuity (Snellen - Linear) Right eye Left eye Dist cc 20/25 20/20 -1 Correction: Glasses Tonometry (Tonopen, 10:05 AM) Right eye Left eye Pressure 18 14 Pupils Pupils Dark Light Shape React APD Right eye PERRL 4 3 Round Brisk None Left eye PERRL 4 3 Round Brisk None Visual Camacho (Counting fingers) Right eye Left eye Full Full Extraocular Movement Right eye Left eye Full Full Neuro/Psych Oriented x3: Yes Mood/Affect: Normal External Exam Right eye Left eye External Normal Normal Slit Lamp Exam Right eye Left eye Lids/Lashes Ectropion lid lesions Ectropion lid lesions Conjunctiva/Sclera White and quiet White and amanda et Cornea Clear Clear Anterior Chamber Deep and quiet Deep and quiet Iris Round and reactive Round and abbey ctive Lens Clear Clear Vitreous Normal Normal Care Teams [employer] Relationship Specialty Start Date End Date Juan Retana MD [id number] [facility] [address] [place] [address] PCP - General Internal Medicine 06/11/20 07/04/20 documented as of this encounter
--- OUTSIDE RECORDS SUMMARY | 2024-11-17 04:30 | XMS_ITS | Encounter Summary ---
Author Organization [facility] Healthcare Address [address] [place] [address] Care Team Providers Care Patch Setter Name Role Phone Juan Retana MD Primary Care Provider [phone] Encounter Details Date Type Department Care Team (Late st Contact Info) Description 06/28/2020 2:00 PM CDT - 06/28/2020 3:30 PM CDT Surgery [facility] Operating [facility] [address] [place] [id number] Carlos Felix MD [address] [address] REPAIR ECTROPION- BILATERAL Surgery Details Date/Time Status Location OR Service Patient Class Case Cl ass Case Type Trauma Case? 06/28/2020 2:[address] [facility] OR POD 4 N Ophthalmology Outpatient Elective Panel 1 Procedure LRB Anes Op Region Wound Class Comments REPAIR ECTROPION- BILATERAL Bilateral Monitor Anesthesia Care Eye Class I - Clean EXCISION CYST/LESION/MASS - EYELIDS BILATERAL Bilateral Monitor Anesthesia Care Eye Class I - Clean Surgeon Surgeon Role Service Panel Carlos Felix MD Primary Ophthalmology 1 Pricilla Sher MD Fellow Ophthalmology 1 Case Notes 06/26: Case line up per office -bt documented in this encounter Social History Tobacco Use Types Packs/Day Years Used Date Smoking Tobacco: Former Cigarettes 1 961 - 06/11/1980 Smokeless Tobacco: Never Alcohol Use Standard Drinks/Week Comments Yes 0 (1 standard drink = 0.6 oz pur e alcohol) rare - maybe 1 beer/month Sex and Gender Information Value Date Recorded Sex Assigned at Not on file 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 Gender Identity Not on file Sexual Orientation Not on file documented as of this encounter Last Filed Vital Signs Vital Sign Reading Time Taken Comments Blood Pressure 112/56 06/28/2020 12:35 PM CDT Pulse 73 06/28/2020 12:35 PM CDT Temperature 36.7 ??C (98.1 ??F) 06/28/2020 1 2:35 PM CDT Respiratory Rate 13 06/28/2020 12:3 5 PM CDT Oxygen Saturation 95% 06/28/2020 12: 35 PM CDT Inhaled Oxygen Concentration - - Weight 113.4 kg (250 lb) 06/23/2020 12: 50 PM CDT pt guessing his weight, he has no idea; has no scale Height 175.3 cm (5' 9 ) 06/28/2020 12:3 5 PM CDT Body Mass Index 36.92 06/23/2020 12:50 PM CDT documented in this encounter Discharge Instructions * Discharge Instructions* Carlos Felix MD - 06/28/2020 4:24 PM CDT Oculoplastic Surgery Discharge Instructions ACTIVITY/DIET Avoid heavy exertion. No athletic activities (swimming, aerobics, running, bowling, etc.) No activities which may generate debris or dirt (i.e., yard work). Do not drive until your vision has returned to normal. Do not sleep on the same side as the eye that had surgery. If possible, sleep on your back and keepyour head elevated with two pillows. You may shower starting tomorrow. Your first meal after surgery should be light. Advance your diet as tolerated. MEDICATIONS Starting TODAY place ERYTHROMYCIN Ophthalmic ointment three (3) times a day on the incisions and/anayeli the operative eye as needed for comfort COMPRESSES Apply cold pack to your eye(s) as much as possible today and tomorrow. Do not use the cold pack when you are sleeping. Place a clean wash cloth between your skin and the cold pack. When the cold packbecomes warm, place it in the freezer until it becomes cold again. Starting 2 days after surgery, stop cold packs and apply a warm, wet washcloth (not hot) over your eye(s) for 5-10 minutes three (3) times each day. Apply the ointment after the warm compress CALL IF YOU HAVE ANY OF THE FOLLOWING: ??? Excessive Bleeding - It is normal to have a small amount of oozing from the incision. Take a clean tissue or cloth and press gently until it stops. ??? Loss of Vision - Some blurriness is normal when the ointment is applied in your eye or near your eye. ??? Severe Pain - Some discomfort is normal, especially after the anesthetic wears off. If you havesevere pain not relieved with Tylenol, call the Office or the Exchange. If concerns arise during business hours, please call Marjorie at [phone] After hours concerns, please call [phone] documented in this encounter Medications at Time of Discharge albuterol HFA (PROVENTIL HFA,VENTOLIN HFA,PROAIR HFA) 90 mcg/actuation inhaler Inhale 2 puffs every 6 (six) hours as needed for wheezing DULoxetine DR (CYMBALTA) 60 mg capsule Take 1 capsule (60 mg total) by mouth every morning omeprazole (PriLOSEC) 20 mg capsule Take 1 capsule (20 mg total) by mouth every morning erythromycin (ILOTYCIN) ophthalmic ointment Apply to both eyes 3 (three) times a day Apply 1/2 inch strip to both eye incision sites three times a day. 3.5 g 2 06/28/2020 07/28/2020 insulin aspart U-100 (NovoLOG) 100 unit/mL (3 mL) insulin penIndications:t ype 2 diabetes mellitus Inject 6 Units under the skin daily with dinner 08/11/2024 insulin glargine (LANTUS) 100 unit/mL injectionIndicat ions:type 2 diabetes mellitus Inject 90 Units under the skin every morning 07/14/2024 lisinopriL (PRINIVIL,ZESTRI L) 20 mg tabletIndication s:hypertension Take 20 mg by mouth every morning 07/14/2024 metFORMIN (GLUCOPHAGE) 1,000 mg tabletIndication s:type 2 diabetes mellitus Take 1 tablet (1,000 mg total) by mouth 2 (two) times a day with meals 08/11/2024 pregabalin (LYRICA) 200 mg capsuleIndicatio ns:Diabetic Peripheral Neuropathy Take 1 capsule (200 mg total) by mouth 2 (two) times a day 08/11/2024 documented as of this encounter Ordered Prescriptions Prescription Sig Dispense Quantity Refills Last Filled Start Date End Date erythromycin (ILOTYCIN) ophthalmic ointment Apply to both eyes 3 (three) times a day Apply 1/2 inch strip to both eye incision sites three times a day. 3.5 g 2 06/28/2020 0 documented in this encounter Discharge Disposition Disposition Code Departure Means Destination Discharge to home or self care documented in this encounter H&P Notes * Carlos Felix MD - 06/28/2020 3:09 PM CDT PATIENT: Abiel Fink : 1950 CC: Tearing HPI: Mr. Fink is a 70 yo male who presents for BLL ectropion. He states that he has constant tearing, butdenies any pain/discomfort. He also notes occasional crusting in lateral corners. No complaints about [facility]. Onset was many years ago. Also notes bilateral lower eyelid lesions that are irritating. 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 Asthma ??? Diabetes mellitus ([facility]) ??? GERD (gastroesophageal reflux disease) ??? HH (hiatus hernia) ??? Hypertension ??? Sleep apnea pt uses CPAP machine nightly Past Surgical History: Procedure Laterality Date ??? KIDNEY SURGERY 1960 ??? MULTIPLE TOOTH EXTRACTIONS ??? TOTAL KNEE ARTHROPLASTY Left 2017 ??? TOTAL KNEE ARTHROPLASTY Right 2019 HOME MEDICATIONS : albuterol HFA (PROVENTIL HFA,VENTOLIN HFA,PROAIR HFA) 90 mcg/actuation inhaler DULoxetine DR (CYMBALTA) 60 mg capsule insulin aspart U-100 (NovoLOG) 100 unit/mL (3 mL) insulin pen insulin glargine (LANTUS) 100 unit/mL injection lisinopriL (PRINIVIL,ZESTRIL) 20 mg tablet metFORMIN (GLUCOPHAGE) 1,000 mg tablet omeprazole (PriLOSEC) 20 mg capsule pregabalin (LYRICA) 200 mg capsule Allergies Allergen Reactions ??? Tramadol Itching Family History Problem Relation Age of Onset ??? Cardiomyopathy Mother ??? Anesthesia problems Neg Hx Social History Tobacco Use ??? Smoking status: Former Smoker Start date: 1960 Quit date: 06/11/1980 Years since quittin.0 ??? Smokeless tobacco: Never Used Substance Use Topics ??? Alcohol use: Yes Comment: rare - maybe 1 beer/month General ROS: Negative other than noted in HPI Physical Exam: Base Eye Exam ?? Visual Acuity (Snellen - Linear) ?? Right Left ?? Dist cc 20/25 20/20 -1 ?? Correction: Glasses ? Tonometry (Tonopen, 10:05 AM) ?? Right Left ?? Pressure 18 14 ? Pupils ?? Pupils Dark Light Shape React APD ?? Right PERRL 4 3 Round Brisk None ?? Left PERRL 4 3 Round Brisk None ? Visual Camacho (Counting fingers) ?? Right Left ? Full Full ? Extraocular Movement ?? Right Left ? Full Full ? Neuro/Psych ?? Oriented x3: Yes ?? Mood/Affect: Normal ? Slit Lamp and Fundus Exam ?? External Exam ?? Right Left ?? External Normal Normal ? Slit Lamp Exam ?? Right Left ?? Lids/Lashes Ectropion lid lesions Ectropion lid lesions ?? Conjunctiva/Sclera White and quiet White and quiet ?? Cornea Clear Clear ?? Anterior Chamber Deep and quiet Deep and quiet ?? Iris Round and reactive Round and reactive ?? Lens Clear Clear ?? Vitreous Normal Normal ?? Please also refer to the anesthesia note for cardiopulmonary examination. Plan: Informed consent obtained for procedure today. The patient is suitable for surgery today based on today???s appearance and examination. documented in this encounter Miscellaneous Notes * Perioperative Nursing Note - Celina Monae - 06/28/2020 5:05 PM CDT Chart verified by Candelaria Marie RN. * Op Note - Carlos Felix MD - 06/28/2020 3:32 PM CDT Operative Note Preoperative Diagnosis: 1. Bilateral lower eyelid ectropion with exposure and tearing 2. Bilateral eyelid lesions Postoperative Diagnosis: Same Operative Procedures: 1. Bilateral lower eyelid ectropion repair with tarsal strip and medial cautery. 2. Excision of eyelid lesions, bilateral Surgeon: Carlos Felix MD Anesthesia: Local/MAC Estimated blood loss: 1mL Complications:None Description of Procedure:Informed consent was obtained. The patient was taken to the operating roomand a final pause was performed to ensure the appropriate patient, surgical procedure, surgical site and all equipment was verified. After satisfactory MAC anesthesia was administered, topical Tetracainewas instilled into the eyes. The lower eyelids and eyelid lesion sites were infiltrated with subcutaneous 2% lidocaine with epinephrine. The patient was sterilely prepped and draped for ophthalmicplastic surgery. The right eyelid lesions were excised from the upper and lower eyelids using Eric scissors and hemostasis was achieved with bipolar cautery. An identical procedure was performed on the opposite side. Corneal protective estrada were placed on each side. A lateral canthotomy and inferior cantholysis was performedon the left side. A 2 millimeter tarsal strip was then fashioned, excising the mucocutaneous junction, the anterior and posterior lamellae and cauterizing the posterior conjunctiva. The medial lower lid was everted and cautery was performed below the lower punctum until adequate inversion of the medial lower eyelid was achieved. The tarsal strip was then sutured inside of the orbital rim using interrupted 5-0 vicryl suture. A canthal reforming suture was placed using 6-0 plain gut suture. The lateral canthal skin was then rearranged and closed using 6-0 plain gut suture. Attention was then turned to the opposite side where a lateral canthotomy and inferior cantholysis was performedon the left side. A 2 millimeter tarsal strip was then fashioned, excising the mucocutaneous junction, the anterior and posterior lamellae and cauterizing the posterior conjunctiva. The medial lower lid was everted and cautery was performed below the lower punctum until adequate inversion of the medial lower eyelid was achieved. The tarsal strip was then sutured inside of the orbital rim using interrupted 5-0 vicryl suture. A canthal reforming suture was placed using 6-0 plain gut suture. The lateral canthal skin was then rearranged and closed using 6-0 plain gut suture. Ophthalmic ointment was instilled into the eye and over the incision. The patient was taken to the recovery area in good condition, given instructions and released. Carlos Felix MD * Pre-Procedure Instructions - Milagros Garcia RECRUITMENT MANAGER - 06/24/2020 9:18 AM CDT Center for Preoperative Assessment and Planning CPAP Clinic Location: [facility] The night before your surgery: * Do not eat or drink anything after midnight. This includes candy, mint, gums, chewable antacids (TUMS, Rolaids) and cough drops * Do not smoke after midnight the night before surgery. It is best to stop smoking now to improve your health. The morning of your surgery: * You may brush your teeth and rinse your mouth out. * Do not glue your dentures. * Do not wear jewelry, body piercings, makeup, hairpins, false eyelashes or contact lenses to the hospital. * Leave any valuables at home or with your family. You may want to bring a credit card if you want to use our Mobile Pharmacy for your discharge medications. Outpatient Surgery: * You must have a responsible adult drive you home and stay with you for 24 hours after your surgery * You cannot be alone at home or in a hotel * Please call your surgeon's office if you do not have someone to drive you home and/or stay with you after surgery If you have Sleep Apnea (JACQUELINE): * Bring your CPAP/BiPAP/VPAP machine to the hospital the day of your surgery * For a few days after your surgery, you will need to wear your CPAP/ BiPAP/VPAP machine any time your are sleeping. This includes when you take a nap. If you have Diabetes: * You may also need less insulin than usual. * If your blood sugar is low before you come to the hospital, drink a small amount of sugar water or clear juice like apple or cranberry juice. DO NOT drink orange or pineapple juice. These are not clear liquids. * If you take insulin be sure to read the Medicine Instructions. * Please call your surgeon and/or the CPAP Clinic if you have any questions. Instructions For Your Medications: Pre-Surgery Instructions: Medication Instructions ??? albuterol HFA (PROVENTIL HFA,VENTOLIN HFA,PROAIR HFA) 90 mcg/actuation inhaler Take on day of surgery if needed ??? DULoxetine DR (CYMBALTA) 60 mg capsule Take morning of surgery ??? insulin aspart U-100 (NovoLOG) 100 unit/mL (3 mL) insulin pen Don't take on day of surgery ??? insulin glargine (LANTUS) 100 unit/mL injection Take a 120 units the morning of surgery ??? lisinopriL (PRINIVIL,ZESTRIL) 20 mg tablet Don't take on day of surgery ??? metFORMIN (GLUCOPHAGE) 1,000 mg tablet Don't take on day of surgery ??? omeprazole (PriLOSEC) 20 mg capsule Take morning of surgery ??? pregabalin (LYRICA) 200 mg capsule Take morning of surgery General Instructions For Medications: ?? Stop all of these medications 7-14 days prior to your surgery: Vitamin E, Herbal medicines, DietPills ?? If you use inhalers, please bring them with you on the day of your procedure. ?? If you have pain, you may take tylenol (acetaminophen). Do not take more than 6 tablets or 3000 mg (3 g) within a 24 period. Call your surgeon and the CPAP clinic if any of the following happens before surgery: ?? Any changes in your health ?? You have a fever ?? You have any signs of an infection (chest, urinary tract or tooth) ?? You have been to the Emergency Room or were in the hospital ?? You have started taking any new medications * Perioperative Nursing Note - Rickie Means RN - 06/23/2020 12:56 PM CDT Center for Preoperative Assessment and Planning Perioperative Nursing Note Telephone Preoperative Evaluation ([facility]) - TELEPHONE ONLY, NO PHYSICAL EXAM Date: 06/23/20 Vitals: 06/23/20 1250 Weight: 113.4 kg (250 lb) Height: 176.5 cm (5' 9.5 ) CHEST CIRCUMFERENCE: NA Social History Tobacco Use Smoking Status Former Smoker ??? Start date: 1960 ??? Quit date: 06/11/1980 ??? Years since quittin.0 Smokeless Tobacco Never Used Substance and Sexual Activity Alcohol Use Yes Comment: rare - maybe 1 beer/month Substance and Sexual Activity Drug Use Not Currently Outpatient Medications Marked as Taking for the 06/28/20 encounter (Hospital Encounter) with Carlos Felix MD Medication Sig Dispense Refill ??? albuterol HFA (PROVENTIL HFA,VENTOLIN HFA,PROAIR HFA) 90 mcg/actuation inhaler Inhale 2 puffs every 6 (six) hours as needed for wheezing ??? DULoxetine DR (CYMBALTA) 60 mg capsule Take 60 mg by mouth every morning ??? insulin aspart U-100 (NovoLOG) 100 unit/mL (3 mL) insulin pen Inject 50 Units under the skin 3 (three) times a day with meals ??? insulin glargine (LANTUS) 100 unit/mL injection Inject 160 Units under the skin every morning ??? lisinopriL (PRINIVIL,ZESTRIL) 20 mg tablet Take 20 mg by mouth every morning ??? metFORMIN (GLUCOPHAGE) 1,000 mg tablet Take 1,000 mg by mouth 2 (two) times a day with meals ??? omeprazole (PriLOSEC) 20 mg capsule Take 20 mg by mouth every morning ??? pregabalin (LYRICA) 200 mg capsule Take 200 mg by mouth 2 (two) times a day Implants No active implants to display in this view. SKIN Piercings Remaining: No SCREENINGS Valencia Fall Risk Score (Retired): 15 John index score: 100 Is someone currently physically or emotionally hurting you or your family?: Denies NUTRITION PATIENT CARE PLANNING Advance Directives (For Healthcare) Advance Directive: Patient does not have advance directive Communication/Investigation Officer Needs Communication Needs: Glasses Patient's Preferred Language: Bermudian Assistive Devices/DME: Dentures lower, Dentures upper, Dentures partial, Eyeglasses Hearing - Right Ear: Hard of hearing Hearing - Left Ear: Hard of hearing Discharge Planning Living Arrangements: Children Support Systems: Children COVID Screening Covid-19 Screening In the last 10 days have you had any new or worsening cough, SOB, fever (>=100F), body aches, loss of taste or smell, diarrhea or vomiting, or sore throat: No Have you had close contact with anyone with confirmed or suspected COVID-19 in the past 3 weeks?: No Do you live in or work in a congregate living facility (ex. assisted living/halfway facility, penitentiary, intermediate)?: No Have you previously tested positive for COVID-19? No TESTING PLAN-See Instructions for plan We recommend you Self-Isolate after COVID Testing: Stay at home, if possible until your surgery date. Maintain a 6 foot distance from other people (social distancing). Avoid touching your eyes, nose and mouth with unwashed hands. Wash your hands often with soap and water for at least 20 seconds. Use an alcohol- based hand central supply worker that contains at least 60% alcohol if soap and water are not available. ADDITIONAL COMMENTS/ FOLLOW UP * Pre-Procedure Instructions - Rickie Means RN - 06/23/2020 12:54 PM CDT PRE-SURGICAL INSTRUCTIONS ??? General Information ?? Surgery location provided to patient. ?? Arrival time and surgical time will be provided by your surgeon. ?? Wear something clean, loose, comfortable and easy to get in and out of. ?? Leave your valuables and any jewelry at home (No metal or piercings are allowed in the operatingroom) ?? Bring your insurance card, a photo ID (like a Lead Mason Tender's license) and a method of payment for any insurance copay, deductible, or copay for discharge medications. ?? Bring a complete, up to date list of all of your medications including any over the counter medications or supplements you may take. ? How To Prepare Your Skin For Surgery Antiseptic/antibacterial soap will decrease the amount of germs on your skin. It is important to minimize the risk of getting an infection by doing the following: ?? Change all the linens on the bed the night before surgery so you are sleeping on clean fresh sheets and pillowcases. ?? Shower the evening before and the morning of surgery with an antibacterial soap such as Dial or a surgical soap known as chlorhexidine (Hibiclens). You can purchase this soap at any pharmacy or department store or come by our CPAP clinic and we will give it to you free of charge. Do not use thissoap on your face or hair. ?? Wash your hair and face with your regular shampoo (no conditioners) and facial cleanser. ?? Take a shower using ?? cup (2 oz.) of antiseptic soap applied to a clean fresh washcloth. Scrub your entire body from the neck down. If you can't reach the surgical site, such as your back, have someone help you with your shower. Step out of the water and leave soap on your skin for 2 minutes prior to rinsing off. Rinse thoroughly and dry yourself off with a clean fresh dry towel. ?? Wear clean clothes or pajamas to sleep in and on morning of surgery. ?? Nothing extra on the skin or hair such as deodorant, makeup, hair products, lotions, powders, Vaseline, creams, or perfumes the evening before and the morning of surgery. ?? The morning of the surgery repeat the shower process with the remaining ?? cup (2 oz.) of surgical scrub using another fresh wash cloth and towel. ?? Do not shave the morning of surgery. ?? REMEMBER no deodorant, make-up, lotions, powders, creams, Vaseline, oils, conditioners or hair products the morning of the surgery. ??? Eye Surgery Process ?? Before the surgery, you will be asked to change into a gown. ?? As you get ready for your surgery; your nurse will ask you questions about your medical history and review your medications with you. ?? An IV will be placed so that we may administer medication to keep you comfortable. ?? You will meet your surgical team. ?? You will be taken by stretcher to the operating room for your surgery. ?? After your surgery, you will come to the recovery area and your family member will join you. ?? A Fall Risk band had been placed on your arm to remind you that you are at higher risk for falling after having eye surgery. You can remove this after 24 hours. ?? Before you leave, we will review your medications with you and special instructions. COVID TESTING PLAN COVID TEST not indicated related to eye surgery/MAC anesthesia If you need to reschedule your COVID test to a different location or if your surgery gets rescheduled, you MUST call [phone] Wednesday-Wednesday 8am-4:30pm to get your COVID testing rescheduled or your lab order will not be available at Testing Sites. COVID Testing is only valid for up to 96 hours prior to surgery date, unless otherwise specified. We recommend you Self-Isolate after COVID Testing: Stay at home, if possible until your surgery date. Maintain a 6 foot distance from other people (social distancing). Avoid touching your eyes, nose and mouth with unwashed hands. Wash your hands often with soap and water for at least 20 seconds. Use an alcohol- based hand central supply worker that contains at least 60% alcohol if soap and water are not available. All visitors/patients are being asked to wear a clean mask when entering the hospital. COVID 19 Updates & Visitor Policy: Please access [email or web address] for the most updated information. Surgery Times: ??? For patients having surgery @ [facility], [facility], if your surgeon's office has not notified you of your surgery time by NOON THE BUSINESS DAY BEFORE your surgery, please call [phone] and ask for your surgeon's office Dr. Felix. documented in this encounter Plan of Treatment Not on file documented as of this encounter Procedures Procedure Name Priority Date/Time Associated Diagnosis Comments POCT GLUCOSE DEVICE Routine 06/28/2020 4:22 PM CDT POCT GLUCOSE DEVICE Routine 06/28/2020 3:33 PM CDT EXCISION CYST/LESION/MASS - EYELIDS 06/28/2020 3:12 PM CDT Senile ectropion of both lower eyelids Lesion of eyelid of both eyes Case Notes 06/26: Case line up per office -bt REPAIR ECTROPION 06/28/2020 3:12 PM CDT Senile ectropion of both lower eyelids Lesion of eyelid of both eyes Case Notes 06/26: Case line up per office -bt POCT GLUCOSE DEVICE Routine 06/28/2020 2:21 PM CDT POCT GLUCOSE DEVICE Routine 06/28/2020 1:08 PM CDT POCT GLUCOSE DEVICE Routine 06/28/2020 12:30 PM CDT documented in this encounter Results * POCT glucose (06/28/2020 4:22 PM CDT) Glucose, POC 88 70 - 199 mg/dL [facility] Blood specimen (specimen) 06/28/2020 4:22 PM CDT 06/28/2020 4:22 PM CDT us Carlos Felix MD LAB POCT ORDERABLES - DE VICE Final Result [facility] Department [place] [address] * POCT glucose (06/28/2020 3:33 PM CDT) Glucose, POC 108 70 - 199 mg/dL [facility] Blood specimen (specimen) 06/28/2020 3:33 PM CDT 06/28/2020 3:33 PM CDT us Carlos Felix MD LAB POCT ORDERABLES - DE VICE Final Result Performing Organization Address [facility] [place] [address] * (ABNORMAL) POCT glucose (06/28/2020 2:21 PM CDT) Glucose, POC 61(L) 70 - 199 mg/dL [facility] Glucose comment 1 Doctor Notified [facility] Blood specimen (specimen) 06/28/2020 2:21 PM CDT 06/28/2020 2:21 PM CDT Carlos eFlix MD LAB POCT ORDERABLES - DE VICE Final Result Performing Organization Address [facility] Co de Phone Number [facility] [id number] [place] [address] * POCT glucose (06/28/2020 1:08 PM CDT) Glucose, POC 113 70 - 199 mg/dL [facility] Blood specimen (specimen) 06/28/2020 1:08 PM CDT 06/28/2020 1:08 PM CDT Carlos Felix MD LAB POCT ORDERABLES - DE VICE Final Result Performing Organization Address [facility] Co de Phone Number [facility] [id number] [place] [address] * (ABNORMAL) POCT glucose (06/28/2020 12:30 PM CDT) Glucose, POC 58(L) 70 - 199 mg/dL [facility] Glucose comment 1 RN Notified [facility] Glucose comment 2 Doctor Notified [facility] Blood specimen (specimen) 06/28/2020 12:30 PM CDT 06/28/2020 12:30 PM CDT Carlos Felix MD LAB POCT ORDERABLES - DE VICE Final Result [facility]ILLIAN ERA[facility] Department [place] [address] documented in this encounter Visit Diagnoses Diagnosis 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 Lesion of eyelid of both eyes Senile ectropion of both lower eyelids Lesion of eyelid of both eyes documented in this encounter Admitting Diagnoses Diagnosis Senile ectropion of both lower eyelids documented in this encounter Administered Medications Inactive Administered Medications - up to 3 most recent administrations Medication Order MAR Action Action Date Dose Rate Site dextrose 5% infusion 100 mL/hr, intravenous, Continuous, Starting on Wed06/28/20 at 1315, Pre-Op, 200 cc bolus in pre-op New Bag 06/28/2020 1:00 PM CDT 100 mL/hr 100 mL/h r New Bag 06/28/2020 12:53 PM CDT 100 mL/hr 100 mL/hr dextrose 5% infusion 50 mL/hr, intravenous, Continuous, Starting on Wed06/28/20 at 1500, Pre-Op, 200 cc bolus, then 50cc/hr New Bag 06/28/2020 2:27 PM CDT 50 mL/hr 50 mL/hr Lactated Ringer's (LR) infusion 30 mL/hr, intravenous, Continuous, Starting on Wed06/28/20 at 1300 Rate/Dose Verify 06/28/2020 3:09 PM CDT 30 mL/hr New Bag 06/28/2020 12:53 PM CDT 30 mL/hr 30 mL/hr lidocaine-EPINEPHrine (XYLOCAINE with EPI) 2 %-1:100,000 injection As needed, Starting on Wed06/28/20 at 1521, Intra-Op, Indications: Administration of Local AnesthesiaIndications:Administrat ion of Local Anesthesia Given 06/28/2020 3:21 PM CDT 5 mL sodium chloride 0.9 % irrigation As needed, Starting on Wed06/28/20 at 1534, Intra-Op Given 06/28/2020 3:34 PM CDT 1,000 mL Surgical Site tetracaine (PF) (ALTACAINE) 0.5 % ophthalmic solution As needed, Starting on Wed06/28/20 at 1515, Intra-Op, Indications: Administration of Corneal AnesthesiaIndications:Administrat ion of Corneal Anesthesia Given 06/28/2020 3:15 PM CDT 2 drops documented in this encounter Discontinued Medications Medication Sig Discontinue Reason Start Date End Da te insulin NPH (HumuLIN N, NovoLIN N) 100 unit/mL injection Inject under the skin Novalog Alternate therapy 06/23/2020 documented as of this encounter Historical Medications * This list may reflect changes made after this encounter. albuterol HFA (PROVENTIL HFA,VENTOLIN HFA,PROAIR HFA) 90 mcg/actuation inhaler Inhale 2 puffs every 6 (six) hours as needed for wheezing DULoxetine DR (CYMBALTA) 60 mg capsule Take 1 capsule (60 mg total) by mouth every morning insulin aspart U-100 (NovoLOG) 100 unit/mL (3 mL) insulin penIndications:t ype 2 diabetes mellitus Inject 6 Units under the skin daily with dinner 08/11/2024 added in this encounter Active and Recently Administered Medications Times are shown in CDT. Continuous Medication Order 06/26/2020 06/27/2020 06/28/2020 dextrose 5% infusion 100 mL/hr, intravenous, Continuous, Starting on Wed06/28/20 at 1315, Pre-Op, 200 cc bolus in pre-op 1253 (New Bag - Prov ider: Eloise Alexander RN)1300 (New Bag - Provider: Gracia Alvarez, NAVIN) dextrose 5% infusion 50 mL/hr, intravenous, Continuous, Starting on Wed06/28/20 at 1500, Pre-Op, 200 cc bolus, then 50cc/hr 1427 (New Bag - Prov ider: Gracia Alvarez, NAVIN) Lactated Ringer's (LR) infusion 30 mL/hr, intravenous, Continuous, Starting on Wed06/28/20 at 1300 1253 (New Bag - Prov ider: Eloise Alexander RN)1509 (Rate/Dose Verify - Provider: Evin Butts CRNA)1613 (Anesthesia Volume Adjustment - Provider: Evin Butts CRNA) Lactated Ringer's (LR) infusion 125 mL/hr, intravenous, Continuous, Starting on Wed06/28/20 at 1700, Phase I 1700 (Due) PRN Medication Order 06/26/2020 06/27/2020 06/28/2020 acetaminophen (TYLENOL) tablet 1,000 mg 1,000 mg, oral, Once as needed, 2nd line for pain, Starting on Wed06/28/20 at 1618, For 1 dose, Phase I fentaNYL (SUBLIMAZE) preservative free injection 50 mcg 50 mcg, intravenous, Once as needed, breakthrough pain, Starting on Wed06/28/20 at 1618, For 1 dose, Phase I, Administer for uncontrolled or increasing pain while in PACU only. Then proceed to PACU 1st line analgesic., Indications: Pain HYDROcodone-acetaminophen (NORCO) 5-325 mg per tablet 1 tablet 1 tablet, oral, Once as needed, 2nd line for pain, Starting on Wed06/28/20 at 1618, For 2 doses, Phase I, Indications: Pain HYDROmorphone (DILAUDID) injection 0.4 mg 0.4 mg, intravenous, Administer over 2 Minutes, Every 10 min PRN, 2nd line for pain, Starting on Wed06/28/20 at 1618, Phase I, May administer 10 mintes after 2nd dose of 1st line analgesic agent for uncontrolled or increasing pain. Revert to 1st line dose if POSS of 3. Notify Anesthesiologist if total PACU dose reaches 2 mg and pain score 5/10 or more., Indications: Pain lidocaine-EPINEPHrine (XYLOCAINE with EPI) 2 %-1:100,000 injection (CANCELED) As needed, Starting on Wed06/28/20 at 1521, Intra-Op, Indications: Administration of Local Anesthesia 1521 (Given - Provid er: Carlos Felix MD - Comment: injected bilateral eyes) naloxone (NARCAN) 0.4 mg/mL injection 0.04-0.4 mg 0.04-0.4 mg, intravenous, Once as needed, other, excessive sedation/respiratory depression, Starting on Wed06/28/20 at 1618, For 1 dose, Phase I, Dilute 0.4 mg with 9 mL NS (final concentration 0.04 mg/mL). For respiratory depression (respiratory rate less than 6), administer 0.4 mg IVP over 30 seconds. For excessive sedation administer 0.04 mg (1 mL) every 1 minute until desired level of alertness. For IV, administer over 30 seconds., Indications: Opioid Toxicity ondansetron (ZOFRAN) injection 4 mg 4 mg, intravenous, Administer over 2 Minutes, Once as needed, nausea, vomiting, Starting on Wed06/28/20 at 1618, For 1 dose, Phase I, Switch to prochlorperazine if no relief within 30 minutes. , Indications: Nausea and Vomiting prochlorperazine (COMPAZINE) injection 10 mg 10 mg, intravenous, Once as needed, nausea, vomiting, Starting on Wed06/28/20 at 1618, For 1 dose, Phase I, If not relieved by ondansetron within 30 minutes., Indications: Nausea and Vomiting sodium chloride 0.9 % irrigation (CANCELED) As needed, Starting on Wed06/28/20 at 1534, Intra-Op 1534 (Given - Provid er: Carlos Felix MD - Comment: bilateral eyes) tetracaine (PF) (ALTACAINE) 0.5 % ophthalmic solution (CANCELED) As needed, Starting on Wed06/28/20 at 1515, Intra-Op, Indications: Administration of Corneal Anesthesia 1515 (Given - Provid er: Carlos Felix MD) documented in this encounter Orders Medications Ordered That Manuel ht Not Have Been Administered Count Last Ordered Date First Ordered Date acetaminophen (TYLENOL) tablet 1,000 mg 1 0 06/28/2020 fentaNYL (SUBLIMAZE) preserv ative free injection 50 mcg 1 06/28/2020 HYDROcodone-acetaminophen (N ORCO) 5-325 mg per tablet 1 tablet 1 06/28/2020 HYDROmorphone (DILAUDID) injection 0.4 mg 1 06/28/2020 Lactated Ringer's (LR) infusion 1 0 naloxone (NARCAN) 0.4 mg/mL injection 0.04-0.4 mg 1 06/28/2020 ondansetron (ZOFRAN) injection 4 mg 1 06/28 prochlorperazine (COMPAZINE) injection 10 mg 1 06/28/2020 sodium chloride 0.9% flush 0.5-20 mL 1 06/09 Diet Count Last Ordered Date First Orde red Date ADULT DISCHARGE DIET 1 06/28/2020 Nursing Count Last Ordered Date First Orde red Date DISCHARGE ACTIVITY 1 06/28/2020 DISCHARGE CALL PROVIDER 2 06/28/2020 documented in this encounter Care Teams Patch Setter Relationship Specialty Start Date End Date Juan Retana MD [address] [facility] [address] [place] [address] PCP - General Internal Medicine 06/11/20 07/04/20 documented as of this encounter
--- OUTSIDE RECORDS SUMMARY | 2024-11-17 04:30 | XMS_ITS | Encounter Summary ---
Author Organization [facility] Address [address] [place] [address] Phone Care Team Providers Care Lease Purchase Driver Name Role Phone Juan Retana MD Primary Care Provider [phone] Encounter Details Date Type Department Care Team (Late st Contact Info) Description 06/27/2020 Telephone [facility] Ophthalmology [address] [facility] Medical Office Building [address] [place] [address] Marjorie Acevedo Social History Tobacco Use Types Packs/Day Years Used Date Smoking Tobacco: Former Cigarettes 1 961 - 06/11/1980 Smokeless Tobacco: Never Alcohol Use Standard Drinks/Week Comments Yes 0 (1 standard drink = 0.6 oz pur e alcohol) rare - maybe 1 beer/month Sex and Gender Information Value Date Recorded Sex Assigned at Not on file 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 Felix for 06/28/2020. documented in this encounter Plan of Treatment Not on file documented as of this encounter Visit Diagnoses Not on filedocumented in this encounter Care Teams Lease Purchase Driver Relationship Specialty Start Date End Date Juan Retana MD [address] [facility] TEAM [address] [place] [address] PCP - General Internal Medicine 06/11/20 07/04/20 documented as of this encounter
--- OUTSIDE RECORDS SUMMARY | 2024-11-17 04:30 | XMS_ITS | Encounter Summary ---
Author Organization [facility] Address [address] [facility] [address] [place] [address] Phone Care Team Providers Care C Engineer Name Role Phone Juan Retana MD Primary Care Provider [phone] [facility], Alverto Gutierrez Unavailable Encounter Details Date Type Department Care Team (Late st Contact Info) Description 07/06/2024 Orders Only [facility] Cardiothoracic Surgery [address] [facility] Advanced Medicine 8th Floor [address] Room [address] [place] [address] Johnathan Mckee MD [address] [facility] [address]234[address]09 [place] [address] Prophylactic measure (Primary Dx) Social History Tobacco Use Types Packs/Day Years Used Date Smoking Tobacco: Former Cigarettes 1 961 - 06/11/1980 Smokeless Tobacco: Never Alcohol Use Standard Drinks/Week Comments Yes 0 (1 standard drink = 0.6 oz pur e alcohol) rare - maybe 1 beer/month Personal Safety Answer Date Recorded Getting School Help Needed Not on file 01/21 Sex and Gender Information Value Date Recorded Sex Assigned at Not on file 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 Do not rinse or drink for 1-2 hours after use. 120 mL 07/19/2024 4 documented in this encounter Plan of Treatment Not on file documented as of this encounter Visit Diagnoses Diagnosis Prophylactic measure- Primary documented in this encounter Care Teams C Engineer Relationship Specialty Start Date End Date Juan Retana MD [address] [facility]ARE TEAM [address] [place] [address] PCP - General Internal Medicine 07/05/24 [facility], Alverto Gutierrez [address] [place] [address] Referring Physician Cardiology 07/05/24 documented as of this encounter
--- OUTSIDE RECORDS SUMMARY | 2024-11-17 04:30 | XMS_ITS | Encounter Summary ---
Author Organization [facility] Address [address] [place] [address] Phone Care Team Providers Care Chain Pegger Name Role Phone Unavailable Primary Care Provider Unavailabl e Encounter Details Date Type Department Care Team (Late st Contact Info) Description 05/22/2020 Telephone [facility] Ophthalmology [address] [facility] Medical Office Building [address] [place] [phone] Carlos Felix MD [address] [facility] [address] [place] [address] Social History Tobacco Use Types Packs/Day Years Used Date Smoking Tobacco: Never Assessed Sex and Gender Information Value Date Recorded Sex Assigned at Not on file 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 Felix to see and treat tearing. I left a voicemail for a call back, but did schedule an appointment for patient. Please reschedule if the date and time do not work for his schedule documented in this encounter Plan of Treatment Not on file documented as of this encounter Visit Diagnoses Not on filedocumented in this encounter
--- OUTSIDE RECORDS SUMMARY | 2024-11-17 04:30 | XMS_ITS | Encounter Summary ---
Author Organization [facility] Address [address] [place] [address] Phone Care Team Providers Care Mutual Fund Manager Name Role Phone No, Physician Primary Care Provider [phone] Reason for Visit * Consultation (Routine) - Closed Specialty Diagnoses / Procedures Referred By Su garber Referred To Contact Ophthalmology Diagnoses Senile ectropion of left lower eyelid [facility], [address] [address] Phone: tel: fax: Carlos Felix MD [address] [place] [address] Phone: tel: fax: Referral ID Status Reason Start Date Expiration Date V isits Requested Visits Authorized [id number] Closed Specialty Services Required 05/15/2020 05/21/[phone] Encounter Details Date Type Department Care Team (Late st Contact Info) Description 08/06/2020 2:30 PM CDT Office Visit [facility] Ophthalmology [address] [place] [address] Outpatient Health 6th [place] [address] Carlos Felix MD [address] [place] [address] Senile ectropion of both lower eyelids (Primary Dx) Social History Tobacco Use Types Packs/Day Years Used Date Smoking Tobacco: Former Cigarettes 1 961 - 06/11/1980 Smokeless Tobacco: Never Alcohol Use Standard Drinks/Week Comments Yes 0 (1 standard drink = 0.6 oz pur e alcohol) rare - maybe 1 beer/month Sex and Gender Information Value Date Recorded Sex Assigned at Not on file 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 Gender: male : 1950 Primary Care Provider: Physician Melvina [facility] Last Surgical Procedure: Repair Ectropion- Bilateral - Bilateral and Excision Cyst/lesion/mass - Eyelids Bilateral - Bilateral 06/28/2020 HPI: HPI Mr. Fink returns for his 5 wk POV s/p bilateral ectropion repair/EXCISION CYST/LESION/MASS - EYELIDSBILATERAL 06/28/20. Pt doing well, no pain/discomfort, just states eyes feel tired frequently. Last edited by Concepción Kasper on 08/06/2020 2:44 PM. (History) Examination: Base Eye Exam Visual Acuity (Snellen - Linear) Right Left Dist cc 20/40 -2 20/25 -2 Correction: Glasses Pupils Pupils Right PERRL Left PERRL Neuro/Psych Oriented x3: Yes Mood/Affect: Normal Slit Lamp and Fundus Exam External Exam Right Left External Normal Normal Slit Lamp Exam Right Left Lids/Lashes Lower lids in good position, ptosis Lower lids in good position, ptosis Cornea Clear Clear Impression: Senile ectropion of both lower eyelids Doing well following surgery. We have referred him back to the [facility] for ptosis evaluation. I have personally examined the patient, participated in all aspects of their care, and formulated the treatment plan. documented in this encounter Miscellaneous Notes * Assessment & Plan Note - Carlos Felix MD - 08/07/2020 1:45 PM CDT Associated Problem(s): Senile ectropion of both lower eyelids Doing well following surgery. [facility] 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
--- OUTSIDE RECORDS SUMMARY | 2024-11-17 04:30 | XMS_ITS | Encounter Summary ---
Author Organization [facility] Address [address] [facility] [address] [place] [address] Phone Care Team Providers Care Dairy Worker Name Role Phone Juan Retana MD Primary Care Provider [phone] [facility], Alverto Gutierrez Unavailable Encounter Details Date Type Department Care Team (Late st Contact Info) Description 07/07/2024 Telephone [facility] Surgery [address] [facility] Advanced Medicine 8th [place] [address] [place] [address] Johnathan Mckee MD [address] [facility] [address] [place] [address] Social History Tobacco Use Types Packs/Day Years [...] on file 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 All the was sent in was the mouth wash and ointment. Please call the pt back at [phone] to have discussed. Thank you, documented in this encounter Plan of Treatment Not on file documented as of this encounter Visit Diagnoses Not on filedocumented in this encounter Care Teams Dairy Worker Relationship Specialty Start Date End Date Juan Retana MD [address] [facility]IMARY CARE TEAM [address] [place] [address] PCP - General Internal Medicine 07/05/24 [facility] [address] [place] [address] Referring Physician Cardiology 07/05/24 documented as of this encounter
--- OUTSIDE RECORDS SUMMARY | 2024-11-17 04:30 | XMS_ITS | Encounter Summary ---
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 Role Phone Juan Retana MD Primary Care Provider [phone] [facility], Alverto Gutierrez Unavailable Reason for Referral * Cardiology (Routine) - Authorized Specialty Diagnoses / Procedures Referred By Contac t Referred To Contact Diagnoses Preoperative testing Procedures ECG 12 lead Shantal Sánchez NP [address] [facility] [phone] [place] [address] Phone: tel: fax: [address] [phone] Referral ID Status Reason Start Date Expiration Date V isits Requested Visits Authorized [id number] Authorized 07/14/2024 08/13/2025 1 1 Encounter Details Date Type Department Care Team (Latest Contact Info) Description 07/14/2024 11:00 AM CDT Pre-Admission Testing [facility] for Preoperative Assessment [facility]ly [facility] [place] [address] Preoperative testing (Primary Dx); Coronary artery disease, unspecified vessel or lesion type, unspecified whether angina present, unspecified whether [place] or transplanted heart Anesthesia Record Procedure Summary Procedure Name Responsible [...] of handoff: PACU 1615 An Stop Meds * Agents No agents on file. * Blood No blood administrations on file. Lines, Drains, and Airways Type Details Placement Removal RETIRED Surgical Site 06/28/20; 1525; Le ft; Eye; 10/10/24 (Retired LDA, Removed/Completed by [email or web address] with LDA Utility); 1213 (Retired LDA, Removed/Completed by [facility] with LDA Utility); Other (Comment) 06/28/20 1525 by Celina Eagle RN 10/10/24 1213 by Discharge Provider, Automatic RETIRED Surgical Site 06/28/20; 1525; Ri ght; Eye; 10/10/24 (Retired LDA, Removed/Completed by [facility] with LDA Utility); 1213 (Retired LDA, Removed/Completed by [email or web address] with LDA Utility); Other (Comment) 06/28/20 1525 [...] Cristina Phipps MD 07/31/24 1323 by Shantal Jules, NAVIN PA Catheter Placement Date: 07/24/24; Placement Time: [...] Abebe Avila RN 07/29/24 1356 by Daylin Harrington, NAVIN Pacer Wires 07/24/24; 1600; OR; 08/05/24; 1420; [...] drink containing alc ohol? Monthly or less 07/14/2024 Q2: How many drinks containi ng alcohol do you have on a typical day when you are drinking? 1 or 2 07/14/2024 Q3: How often do you have si x or more drinks on one occasion? 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 2 oz) 07/14/2024 11:30 AM CDT Height 177.8 cm (5' 10 ) 07/14/2024 11: 30 AM CDT Body Mass Index 34.86 07/14/2024 11:30 AM CDT documented in this encounter Miscellaneous Notes * Perioperative Nursing Note - Brii Samuels RN - 07/14/2024 11:00 AM CDT Center for Preoperative Assessment and Planning Perioperative Nursing Note CPAP Clinic at [facility] ([facility]) Date: 07/14/24 This assessment was completed with the patient. Vitals: 07/14/24 1103 BP: 120/55 BP Location: Left arm Patient Position: Sitting Pulse: 73 Resp: 22 SpO2: 99% CHEST CIRCUMFERENCE: 44.5 Social History Tobacco Use Smoking Status Former Current packs/day: 0.00 Average packs/day: 1.5 packs/day for 19.6 years (29.4 ttl pk-yrs) Types: Cigarettes Start date: 1958 Quit date: 06/11/1980 Years since quittin.1 Passive exposure: Past Smokeless Tobacco Never Substance and Sexual Activity Drug Use Not Currently Alcohol Use Q1: How often do you have a drink containing alcohol?: Monthly or less Q2: How many drinks containing alcohol do you have on a typical day when you are drinking?: 1 or 2 Q3: How often do you have six or more drinks on one occasion?: Never Outpatient Medications Marked as Taking for the 07/14/24 encounter (Pre-Admission Testing) with [facility] CPAP NURSE Medication Sig Dispense Refill albuterol HFA (PROVENTIL HFA,VENTOLIN HFA,PROAIR HFA) 90 mcg/actuation inhaler Inhale 2 puffs every6 (six) hours as needed for wheezing ammonium lactate (AMLACTIN) 12 % cream Apply 1 Application topically as needed for dry skin atorvastatin (LIPITOR) 40 mg tablet Take 1.5 tablets (60 mg total) by mouth every evening bumetanide (BUMEX) 1 mg tablet Take 0.5 tablets (0.5 mg total) by mouth as needed (edema- SOB and leg swelling) carboxymethylcell-glycerin,PF, 0.5-0.9 % drops Administer 1 drop into affected eye(s) as needed (Dry eyes) [START ON 07/19/2024] chlorhexidine (PERIDEX) 0.12 % solution Apply 15 mL to the mouth or throat 3 (three) times a day for 5 days Swish and rinse for at least 30 seconds . Do not rinse or drink for 1-2 hours after use. [address] (CYMBALTA) 60 mg capsule Take 1 capsule (60 mg total) by mouth every morning ibuprofen (ADVIL,MOTRIN) 800 mg tablet Take 1 tablet (800 mg total) by mouth every 6 (six) hours insulin aspart U-100 (NovoLOG) 100 unit/mL (3 mL) insulin pen Inject 6 Units under the skin daily with dinner metFORMIN (GLUCOPHAGE) 1,000 mg tablet Take 1 tablet (1,000 mg total) by mouth 2 (two) times a day with meals [START ON 07/19/2024] mupirocin (BACTROBAN) 2 % ointment Apply to each nostril 2 (two) times a day for 5 days (Patient taking differently: Apply 1 Application to each nostril 2 (two) times a day) 22 g0 naproxen (ALEVE) 220 mg tablet Take 1 tablet (220 mg total) by mouth every 12 (twelve) hours as needed for headaches omeprazole (PriLOSEC) 20 mg capsule Take 1 capsule (20 mg total) by mouth every morning pregabalin (LYRICA) 200 mg capsule Take 1 capsule (200 mg total) by mouth 2 (two) times a day sacubitriL-valsartan (ENTRESTO) 24-26 mg tablet Take 1 tablet by mouth 2 (two) times a day semaglutide (OZEMPIC) 1 mg/dose (4 mg/3 mL) pen injector injection Inject 1 mg under the skin every7 days Wednesday [DISCONTINUED] dexAMETHasone (DECADRON) 4 mg tablet Take 1 tablet (4 mg total) by mouth [DISCONTINUED] insulin glargine (LANTUS) 100 unit/mL injection Inject 90 Units under the skin everymorning Implants No active implants to display in this view. SKIN Piercings Remaining: No Wound (LDAs) Type of Wound (LDA): (Pt denies) SCREENINGS Pain Assessment: No/denies pain Valencia Fall Risk Score (Retired): 65 John index score: 100 Have you ever been in or are you currently in a harmful physical or emotional relationship or is someone making you feel afraid or unsafe?: Denies NUTRITION MALLOY Nutrition and Function History Questionnaire Is BMI < 20?: No Have you lost any weight in the past 6 months without trying? : No Have you eaten < 50% of normal in the past 2 weeks without trying?: No Have you experienced any of the following in the past month?: No Symptom Score: 0 Has your activity level decreased over the past 6 months or do you use an assistive device such as a walker, cane, or wheelchair?: Yes Total Score: 1 PATIENT CARE PLANNING Advance Directives (For Healthcare) Have you reviewed your Advance Directive and is it valid for this stay?: No Advance Directive: Patient does not have advance directive, Patient would like information, Information provided Information Provided on Healthcare Directives: Yes Communication/Gis Instructor Needs Communication Barriers: Visual Communication Needs: Glasses Does caregiver's language differ from patient's?: No Assistive Devices/DME: Dentures lower, Dentures upper, Eyeglasses (Does not have his dentures at this time, being made) Discharge Planning Type of Residence: Private residence Living Arrangements: Children Support Systems: Family members, Children Assistance Needed: Son and Brother with pt DOS Patient expects to be discharged to: Private residence 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 Arrival time and surgical time will be provided to the patient by their surgeon. You should wear clothing that is clean, loose, comfortable and easy to get in and out of on the dayof surgery. Remove nail coverings, artificial nails and nail greek prior to the day of surgery. This is to lower your risk of infection and to allow the day of surgery team to monitor your oxygen levels. You should leave your valuables and any jewelry at home. No metal or piercings are allowed in the operating room. You should bring your insurance card, a photo ID (example: Associate Research Scientist's License) and a method of payment for any insurance copay, deductible or copay for discharge medications. You should bring a complete, up-to-date, list of all your medications on the day of surgery, including any over the counter medications or supplements you may take. Please note on your medication list, the last date & time you took each medication. The healthcare team, on the day of surgery, will ask for this information. You should bring your Advanced Directive and/or Living Will with you on the day of surgery if you have not verified a copy is already in your Epic Chart. PREVENTING INFECTION (DECOLONIZATION): Decolonization is the use of a topical antiseptic soap and sometimes a nasal ointment to remove bacteria (germs) from the skin's surface. Antiseptic soap: Chlorhexidine gluconate or CHG (brand name: Hibiclens??) Before surgery, your entire body must be thoroughly cleaned. CHG helps to reduce the bacteria on your skin. You may be given one or more bottles of CHG or you may be asked to obtain from your preferred pharmacy. Be sure to ask your pharmacist if you need help finding this product. Nasal ointment: Mupirocin (brand name: Bactroban)- This will only be ordered for the 5 Day Bathing Protocol. Your surgeon may also prescribe a topical ointment that is rubbed inside each of the nostrils to reduce the bacteria in your nose. Mupirocin ointment requires a prescription. If needed, it will be prescribed by your surgeon and obtained from your preferred pharmacy. SHOWERING WITH ANTISEPTIC SOAP (CHG) What You Need For Each Shower 60 mL (?? cup) of CHG 2 clean washcloths Below is the Pre-Surgical Bathing Protocol you should follow for your surgery. If your surgeon provides you different bathing instructions, please follow your surgeon's orders. 5 Day CHG Bathing & Nasal Ointment (Mupirocin) Protocol The following bathing instructions were discussed with the patient. Patient provided detailed scrubinstructions via A Guide for Patients Having Surgery: Your Pathway to Excellent Care, pages 7-10. Patients may also access the guide via the web link: [email or web address]. Patient stated understanding of the bathing instructions. Other Important Handouts/Education Discussed with Patient: Guide for Patients Having Surgery: Your Pathway to Excellent Care. Reviewed and provided document to patient. Patient stated understanding. Advanced Directive. Reviewed and provided document to patient. Patient stated understanding. Nutrition Education Handout, Fuel Up For Surgery. Reviewed and provided document to patient. Patient stated understanding. Travel/Exposure Screening: Travel Screening Have you traveled outside the [place] in the last 6 months?: No Exposure Screening Have you been exposed to anyone who is sick in the last 30 days?: No Have you been exposed to or tested positive for COVID-19 within the last 10 days?: No Infectious Disease Screening Are you having any of the following:: None As of 09/01/2022 any COVID TESTING required for surgery will be set up by your surgeon's office. Please reach out to your surgeon's office if you develop any COVID symptoms, test positive for COVID or are exposed to a COVID positive person. All patients should read below section: Information on [facility] the [facility]: Please view [email or web address] (Patient & Visitor Information) for additional details regarding Advanced Directive forms, AWARE, directions, parking information, lodging, Internet access, dining and more. For MyChart information, to activate account or password recovery, please go to [email or web address] or call [phone] (toll-free: [phone]), Wed- Wednesday 8am-5pm. Information for Suicide Prevention: National Suicide Prevention Lifeline (1-766-818-MPVB (5809)) orcall or text 988. Chat resources: [employer]. Surgery Times: For patients having surgery @ [facility] or [facility] ([facility]), if your surgeon's office has not notified you of your surgery time by NOON THE BUSINESS DAY BEFORE your surgery, please call [phone] and ask for your surgeon's office Dr. Mckee. The Center for Preoperative Assessment & Planning (CPAP) does not provide arrival times for theday of surgery or provide the duration of surgery. This information is provided by your surgeon's office or by the center where you are having surgery. We appreciate your understanding. * Pre-Procedure Instructions - Shantal Sánchez NP - 07/14/2024 11:00 AM CDT Center for Preoperative Assessment and Planning CPAP Clinic Location: [facility] The night before your surgery: * Do not eat anything after midnight the night before your procedure. The morning of your surgery: * You may have clear liquids on your surgery day. You must stop drinking two hours before you arrive to the surgery facility. Acceptable clear liquids include water, clear sports drinks, black coffee, tea, or clear soda. DO NOT drink any milk, creamer, or alcohol. * Your surgeon's office may have provided additional instructions or restrictions. Please follow those instructions. * You may brush your teeth and rinse your mouth out. * Do not glue your dentures. * Do not wear jewelry, body piercings, makeup, hairpins, false eyelashes or contact lenses to the hospital. * Leave any valuables at home or with your family. * If you have an implantable device with a remote, bring the remote with you on the day of surgery. * If having surgery at [facility], you may want to bring a credit card if you want to use our Mobile Pharmacy for your discharge medications. Mobile pharmacy is not available at [facility], the Orthopedic Center, or the [facility]. If you have Sleep Apnea (JACQUELINE): * Bring your CPAP/BiPAP/VPAP machine to the hospital the day of your surgery * For a few days after your surgery, you will need to wear your CPAP/ BiPAP/VPAP machine any time your are sleeping. This includes when you take a nap. If you have Diabetes: * You may also need less insulin than usual. * If you use insulin and are placed on a liquid diet, be sure to drink some liquids that contain sugar. * If your blood sugar is low [...] For Your Medications: Pre-Surgery Instructions: Medication Instructions albuterol HFA (PROVENTIL HFA,VENTOLIN HFA,PROAIR HFA) 90 mcg/actuation inhaler Take on day of surgery if needed ammonium lactate (AMLACTIN) 12 % cream Don't take on day of surgery aspirin 81 mg enteric coated tablet Per surgeon's instructions atorvastatin (LIPITOR) 40 mg tablet Take the evening prior to surgery bumetanide (BUMEX) 1 mg tablet Don't take on day of surgery carboxymethylcell-glycerin,PF, 0.5-0.9 % drops Take on day of surgery if needed [START ON 07/19/2024] chlorhexidine (PERIDEX) 0.12 % solution Per surgeon's instructions DULoxetine DR (CYMBALTA) 60 mg capsule Take morning of surgery ibuprofen (ADVIL,MOTRIN) 800 mg tablet Stop taking 5 days prior to surgery insulin aspart U-100 (NovoLOG) 100 unit/mL (3 mL) insulin pen Don't take on day of surgery insulin glargine (LANTUS, SEMGLEE) 100 unit/mL subcutaneous syringe Inject 72 units on morning of surgery. metFORMIN (GLUCOPHAGE) 1,000 mg tablet Don't take on day of surgery MULTIVITAMIN ORAL Stop taking 1 week prior to surgery [START ON 07/19/2024] mupirocin (BACTROBAN) 2 % ointment Per surgeon's instructions naproxen (ALEVE) 220 mg tablet Stop taking 5 days prior to surgery omeprazole (PriLOSEC) 20 mg capsule Take morning of surgery pregabalin (LYRICA) 200 mg capsule Take morning of surgery sacubitriL-valsartan (ENTRESTO) 24-26 mg tablet Do not take for 24 hours before procedure. semaglutide (OZEMPIC) 1 mg/dose (4 mg/3 mL) pen injector injection Stop taking 1 week prior to surgery. Hold on 07/18/24. carvediloL (COREG) 6.25 mg tablet Take morning of surgery General Instructions For Medications: * Stop all of these medications 5 days prior to your surgery: excedrin, motrin, advil, ibuprofen, aleve, naproxen, meloxicam, celebrex, celecoxib. For medications that you are instructed to take on the morning of surgery, take the medications with a few sips of water. Stop all of these medications 7-14 days prior to your surgery: Vitamin E, Herbal medicines, Diet Pills If you take aspirin, do not stop taking it unless you were instructed to do so. If you use inhalers, please bring them with you on the day of your procedure. If you have pain, you may take tylenol (acetaminophen). Do not take more than 6 tablets or 3000 mg (3 g) within a 24 period. Call your surgeon and the CPAP clinic if any of the following happens before surgery: Any changes in your health You have a fever You have any signs of an infection (chest, urinary tract or tooth) You have been to the Emergency Room or were in the hospital You have started taking any new medications If laboratory testing was completed during your visit, we will only contact you regarding any results that require you to take additional action prior to your planned procedure. documented in this encounter Plan of Treatment Scheduled Orders Name Type Priority Associated Diagnoses Orde r Schedule CBC with auto differential Lab Routine Preoperative testing Expected: 07/17/2024, Expires: 07/14/2025 Protime-INR Lab Routine Preoperative testing Expected: 07/14/2024, Expires: 07/14/2025 aPTT Lab Routine Preoperative testing Expected: 07/14/2024, Expires: 07/14/2025 documented as of this encounter Procedures Procedure Name Priority Date/Time Associated Diagnosis Comments TYPE AND SCREEN 14 DAY Routine 12:28 PM CDT Preoperative testing EGFR Routine 07/14/2024 12:28 PM CDT Preoperative testing URINALYSIS AND REFLEX TO MICROSCOPIC AND CULTURE Routine 07/14/2024 12:28 PM CDT Preoperative testing CBC WITH AUTO DIFFERENTIAL Routine 07/14/2024 12:28 PM CDT Preoperative testing URINALYSIS, MICROSCOPIC ONLY Routine 07/14/2024 12:28 PM CDT Preoperative testing COMPREHENSIVE METABOLIC PANEL Routine 07/14/2024 12:28 PM CDT Preoperative testing POCT HEMOGLOBIN A1C Routine 07/14/2024 1 1:10 AM CDT ECG 12-LEAD Routine 07/14/2024 10:02 AM CDT Preoperative testing documented in this encounter Results * XR Chest PA Lateral 2 View (07/14/2024 12:54 PM CDT) Anatomical Region Laterality Modality Body, Chest N/A Computed Radiogr aphy 07/14/2024 1:39 PM CDT Impressions 07/14/2024 3:13 PM CDT There are no prior chest radiographs for comparison. ??No pulmonary consolidation. ??No pleural effusion. ??No pneumothorax. Mild cardiomegaly. ??Mild pulmonary edema. Dictated by: Brielle Ang MD, MPH The radiology attending physician has personally reviewed this study, and had reviewed and/or edited this written report and agrees with it. Electronically signed by: Altagracia Stafford M.D. Narrative 07/14/2024 3:13 PM CDT EXAMINATION: 2 view chest radiograph Procedure Note Altagracia Stafford MD - 07/14/2024 EXAMINATION: 2 view chest radiograph IMPRESSION: There are no prior chest radiographs for comparison. No pulmonary consolidation. No pleural effusion. No pneumothorax. Mild cardiomegaly. Mild pulmonary edema. Dictated by: Brielle Ang MD, MPH The radiology attending physician has personally reviewed this study, and had reviewed and/or edited this written report and agrees with it. Electronically signed by: Altagracia Stafford M.D. us Shantal Sánchez NP IMG XR PROCEDURES Final Result * eGFR (07/14/2024 12:28 PM CDT) eGFR >90 >=60 mL/min/1. 73 [...] interpretive data was last reviewed 2021. Blood 07/14/2024 12:2 8 PM CDT 07/14/2024 1:19 PM CDT us Shantal Sánchez NP LAB BLOOD ORDERABLES Fi nal Result Performing Organization Address City/State/ZIP Co mt Phone Number [facility] Department [place] [address] * (ABNORMAL) Urinalysis, microscopic only (07/14/2024 12:28 PM CDT) WBC, ur 0-5 0 - 5 /HPF RBC, ur 3-5(A) 0 - 2 /HPF [facility] Bacteria, ur 1+(A) [facility] Mucous, ur Present(A) [facility] Hyaline casts, ur 1-5 0 - 10 /LPF [facility] Culture Reflex Comment Reflex conditions for urine culture (WBC >10) not met. [facility] Urine, clean voided 07/14/2024 12:28 PM CDT 07/14/2024 1:13 PM CDT us Shantal Sánchez NP LAB URINE ORDERABLES Fi nal Result [facility] [place] [address] * (ABNORMAL) Urinalysis reflex to microscopic and culture Urine, clean voided (07/14/2024 12:28 PM CDT) Color, ur Yellow Yellow Clarity, ur Clear Clear [facility] Specific gravity, ur 1.028 1.003 - 1.030 [facility] pH, urine 6.0 [facility] Comment: Interpretive Data ? Urine pH is affected by diet, medications, systemic acid-base disturbances, and renal tubular function. ??pH may affect urinary stone formation. ??For example, urine pH below 6.0 may help reduce the tendency for calcium phosphate stones and pH greater than 6.0 may reduce the tendency for uric acid stone formation. Source: [facility] Current Interpretive Data was last revised on 2017 Protein, ur ql 1+(A) Negative [facility] Glucose, ur ql Negative Negative [facility] Ketones, ur Negative Negative [facility] Bilirubin, ur Negative Negative [facility] Blood, ur Negative Negative [facility] Urobilinogen, ur <2.0 <2.0 mg/dL [facility] Nitrite, ur Negative Negative [facility] Leukocyte esterase, ur Negative Negative [facility] UA reflex comment Reflex to microscopic UA will be performed. [facility] Urine, clean voided 07/14/2024 12:28 PM CDT 07/14/2024 1:13 PM CDT Result [facility] Shantal Sánchez NP LAB MICROBIOLOGY - GENE RAL ORDERABLES Final Result Performing Organization Address [facility] Co de Phone Number [facility] [place] [address] * TYPE AND SCREEN 14 DAY (07/14/2024 12:28 PM CDT) Pathologist [facility] Janell, indirect Negative ABO Rh O Positive [facility] Blood 07/14/2024 12:2 8 PM CDT 07/14/2024 1:24 PM CDT Narrative [facility] - 07/14/2024 2:20 PM CDT Is this test being ordered in advance for a procedure?->Yes Expected date of procedure:->07/24/24 Has the patient been transfused in the past 3 months?->No Result [facility] Shantal Sánchez NP LAB BLOOD BANK TEST ORD ERABLES Final Result Performing Organization Address [facility] de Phone Number [facility] [place] [address] * CBC with auto differential (07/14/2024 12:28 PM CDT) WBC See Comment 3.8 - 9.9 Comment:Credited, specimen c lotted. Hgb See Comment 13.0 - 17.5 [facility] Comment:Credited, specimen c lotted. Hct See Comment 38.9 - 50.3 [facility] Comment:Credited, specimen c lotted. Plt See Comment 150 - 400 [facility] Comment:Credited, specimen c lotted. RBC See Comment 4.30 - 5.80 [facility] Comment:Credited, specimen c lotted. MCV See Comment 81.3 - 96.4 [facility] Comment:Credited, specimen c lotted. MCH See Comment 27.1 - 33.3 [facility] Comment:Credited, specimen c lotted. MCHC See Comment 32.3 - 35.7 [facility] Comment:Credited, specimen c lotted. Blood 07/14/2024 12:2 8 PM CDT 07/14/2024 1:19 PM CDT us Shantal Sánchez NP LAB BLOOD ORDERABLES Fi nal Result [facility] Department [place] [address] * (ABNORMAL) Comprehensive metabolic panel (07/14/2024 12:28 PM CDT) Sodium 140 135 - 145 mmol/L Potassium, pl 4.8 3.3 - 4.9 mmol/L [facility] Comment:Hemolyzed; Potassium value may be falsely elevated by as much as 0.3-0.5 mmol/L. Suggest redraw and reanalysis. Chloride 107 97 - 110 mmol/L [facility] CO2 27 22 - 32 mmol/L [facility] Anion gap 6 2 - 15 mmol/L [facility] BUN 26(H) 6 - 25 mg/dL [facility] Creatinine 0.87 0.80 - 1.30 mg/dL [facility] Glucose 144 70 - 199 mg/dL [facility] Comment: Interpretive Data Fasting glucose >/= 126 [...] 2022. Calcium 8.7 8.5 - 10.3 mg/dL [facility] Bilirubin, total 0.4 0.1 - 1.2 mg/dL [facility] Protein, pl 6.2(L) 6.5 - 8.5 g/dL [facility] Albumin 3.4(L) 3.5 - 5.0 g/dL [facility] Alk phos 82 40 - 130 Units/L [facility] ALT 47 7 - 55 Units/L [facility] AST 47 10 - 50 Units/L [facility] Comment:Hemolyzed; result ma y be falsely elevated Blood 07/14/2024 12:2 8 PM CDT 07/14/2024 1:19 PM CDT Shantal Sánchez NP LAB BLOOD ORDERABLES Fi nal Result Performing Organization Address [facility] de Phone Number [facility] [place] [address] * (ABNORMAL) POCT hemoglobin A1c (07/14/2024 11:10 AM CDT) Hgb A1C, POC 7.5(H) 4.0 - 5.6 % Est Average Gluc POC 169 mg/dL [facility] Comment: The ADA recommends reporting an estimated Average Glucose (eAG) with all Hemoglobin A1c results using the equation derived from a study of 507 normal and diabetic adults. ??Minority populations were underrepresented and children were not included. ?? (Diabetes Care 31:2070-3388, 2008). ??The eAG is not equivalent to a fasting glucose. Blood 07/14/2024 11:1 0 AM CDT 07/14/2024 11:10 AM CDT us Johnathan Mckee MD POINT OF CARE TEST LIU HERNANDEZ Final Result Performing Organization Address [facility] Co de Phone Number [facility] [place] [address] * ECG 12 lead (07/14/2024 10:02 AM CDT) Ventricular Rate EKG/Min 46 BPM [facility] Atrial Rate 74 BPM [facility] QRS-Interval (MSEC) 146 ms [facility] QT-Interval (MSEC) 442 ms [facility] QTc 386 ms [facility] P Coulter 32 degrees [facility] R Coulter -45 degrees [facility] T Coulter -10 degrees [facility] Diagnosis Normal sinus rhythm with Mobitz I (Wenckebach) block Right bundle branch block Left anterior fascicular block Bifascicular block Inferior infarct , age undetermined Abnormal ECG No previous ECGs available Confirmed by REESE FUNK M.D ([id number]) on 07/14/2024 1:31:01 PM [facility] 07/14/2024 10:0 2 AM CDT 07/14/2024 1:31 PM CDT us Shantal Sánchez NP ECG ORDERABLES Final R esult [facility] documented in this encounter Visit Diagnoses Diagnosis Preoperative testing- Primary Unspecified pre-operative examination Coronary artery disease, unspecified vessel or lesion type, unspecified whether angina present, unspecified whether [place] or transplanted heart Preoperative testing Unspecified pre-operative examination documented in this encounter Discontinued Medications Medication Sig Discontinue Reason Start Date End Da te lisinopriL (PRINIVIL,ZESTRIL) 20 mg tabletIndications:hypert ension Take 20 mg by mouth every morning Error 07/14/2024 insulin glargine (LANTUS) 100 unit/mL injectionIndications:typ e 2 diabetes mellitus Inject 90 Units under the skin every morning Duplicate order 07/14/2024 dexAMETHasone (DECADRON) 4 mg tablet Take 1 tablet (4 mg total) by mouth Therapy completed 07/04/2024 07/14/2024 atorvastatin (Lipitor) 10 mg tablet Take by mouth Duplicate order 07/14/2024 documented as of this encounter Historical Medications * This list may reflect changes made after this encounter. MULTIVITAMIN ORAL Take 1 tablet by mouth every morning aspirin 81 mg enteric coated tablet Take 1 tablet (81 mg total) by mouth daily ammonium lactate (AMLACTIN) 12 % creamIndications:D ry Skin Apply 1 Application topically as needed for dry skin 02/11/2024 carboxymethylcell- glycerin,PF, 0.5-0.9 % dropsIndications:D ry Eye Administer 1 drop into affected eye(s) as needed (Dry eyes) 05/12/2024 insulin glargine (LANTUS, SEMGLEE) 100 unit/mL subcutaneous syringeIndications :Diabetes Mellitus Inject 90 Units under the skin every morning 4 carvediloL (COREG) 6.25 mg tabletIndications: Heart failure Take 0.5 tablets (3.125 mg total) by mouth 2 (two) times a day with meals 4 sacubitriL-valsart an (ENTRESTO) 24-26 mg tabletIndications: chronic heart failure Take 1 tablet by mouth 2 (two) times a day 4 atorvastatin (LIPITOR) 40 mg tabletIndications: hyperlipidemia Take 1.5 tablets (60 mg total) by mouth every evening 06/07/2024 4 semaglutide (OZEMPIC) 1 mg/dose (4 mg/3 mL) pen injector injectionIndicatio ns:type 2 diabetes mellitus Inject 1 mg under the skin every 7 days Wednesday05/01/2024 4 ibuprofen (ADVIL,MOTRIN) 800 mg tabletIndications: Pain Take 1 tablet (800 mg total) by mouth every 6 (six) hours 07/04/2024 4 dexAMETHasone (DECADRON) 4 mg tablet Take 1 tablet (4 mg total) by mouth 07/04/2024 4 bumetanide (BUMEX) 1 mg tabletIndications: Edema Take 0.5 tablets (0.5 mg total) by mouth as needed (edema- SOB and leg swelling) 06/07/2024 4 naproxen (ALEVE) 220 mg tabletIndications: Pain Take 1 tablet (220 mg total) by mouth every 12 (twelve) hours as needed for headaches 07/02/2023 4 atorvastatin (Lipitor) 10 mg tablet Take by mouth 4 added in this encounter Care Teams 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
--- OUTSIDE RECORDS SUMMARY | 2024-11-17 04:30 | XMS_ITS | Encounter Summary ---
Author Organization [facility] Address [address] [place] [address] Phone Care Team Providers Care Skilled Nursing Case Manager Name Role Phone No, Physician Primary Care Provider [phone] Reason for Visit * Consultation (Routine) - Closed Specialty Diagnoses / Procedures Referred By Su garber Referred To Contact Ophthalmology Diagnoses Senile ectropion of left lower eyelid [facility], [address] [address] Phone: tel: fax: Carlos Felix MD [address] [place] [id number] Phone: tel: fax: Referral ID Status Reason Start Date Expiration Date V isits Requested Visits Authorized [id number] Closed Specialty Services Required 05/15/2020 05/21/[phone] Encounter Details Date Type Department Care Team (Late st Contact Info) Description 07/05/2020 3:00 PM CDT Office Visit [facility] Ophthalmology [address] [place] [address] Outpatient Health 6th [place] [address] Carlos Felix MD [address] [place] [id number] Senile ectropion of both lower eyelids [...] on file 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 Gender: male : 1950 Primary Care Provider: Physician Melvina [facility] Procedure: Repair Ectropion- Bilateral - Bilateral and Excision Cyst/lesion/mass - Eyelids Bilateral - Bilateral 06/28/2020 HPI: HPI 1 wk POV s/p bilateral ectropion repair/EXCISION CYST/LESION/MASS - EYELIDS BILATERAL 06/28/20 Pt doing well, has some discomfort along brow margin when he squeezes eyes shut. Overall doing fine. He has not used tony since day of procedure, states he lost tube. Last edited by Concepción Kasper on 07/05/2020 2:33 PM. (History) Examination: Base Eye Exam Visual Acuity (Snellen - Linear) Right Left Dist cc 20/30 20/25 Correction: Glasses Pupils Pupils Right PERRL Left PERRL Neuro/Psych Oriented x3: Yes Mood/Affect: Normal Slit Lamp and Fundus Exam Slit Lamp Exam Right Left Lids/Lashes good lid apposition. Mild edema good lid apposition. Mild edema Cornea Clear Clear Impression: Senile ectropion of both lower eyelids Doing well. RTC 4 weeks. Discussed possible need for upper bleph given symptomatic visual obstruction. I have personally examined the patient, participated in all aspects of their care, and formulated the treatment plan. documented in this encounter Miscellaneous Notes * Assessment & Plan Note - Carlos Felix MD - 07/05/2020 9:22 PM CDT Associated Problem(s): Senile ectropion of both lower eyelids Doing well. RTC 4 weeks. Discussed possible need for upper bleph given symptomatic visual obstruction. documented in this encounter Plan of Treatment Not on file documented as of this encounter Visit Diagnoses Diagnosis Senile ectropion of both lower eyelids- Primary documented in this encounter Eye Exam Visual Acuity (Snellen - Linear) Right eye Left eye Dist cc 20/30 20/25 Correction: Glasses Pupils Pupils Right eye PERRL Left eye PERRL Neuro/Psych Oriented x3: Yes Mood/Affect: Normal Slit Lamp Exam Right eye Left eye Lids/Lashes good lid apposition. Mild edema good lid apposition. Mild edema Cornea Clear Clear Care Teams Skilled Nursing Case Manager Relationship Specialty Start Date End Date No, Physician PCP - General 07/05/20 07/04/24 documented as of this encounter
--- OUTSIDE RECORDS SUMMARY | 2024-11-17 04:30 | XMS_ITS | Clinical Summary ---
Author Organization Unknown Care Team Providers Care Web Page Developer Name Role Phone AVELINA HENSLEY, LEONOR Unavailable Unavailable NICHOLE RN, SHAKIR Unavailable Unavailraleigh JOY LPN, COLUMBA Unavailable Unavailable MICHAEL PT, KERA Unavailable Unavailable TIN INKJET OPERATOR, JEROD Unavailable Unavailable NICOLLE OT, MARY Unavailable Unavailable VIOLET CASTANO, SHELDON Unavailable Unavailable Payers Payer Name Policy Type Policy Number Effective Date Expira tion Date [id number] Problems Condition Name Condition Details Condition Category Status Onset Date Resolution Date Last Treatment Date Treating Clinician Comments ENCNTR FOR SURGICAL AFTCR FOLLOWING SURGERY ON THE CIRC SYS Active 2023-11 0- 00:00: 00 ATHSCL HEART DISEASE OF [place] CORONARY ARTERY W/O ANG PCTRS Active 2023-11 [...] CARDIAC PACEMAKER Active 2023-11 0-15 00:00: 00 SNF (CURRENT) USE OF ORAL HYPOGLYCEMIC DRUGS Active 2023-11 00:00: 00 SNF (CURRENT) USE OF ANTITHROMBOT ICS/ANTIPLAT ELETS Active [...] on aerosol inhaler 02-13 00:00: 00 Yes [id number] SHORTNESS OF BREATH 1 puff EVERY 6 HOURS 1 puff EVERY 6 HOURS (route: inhalation ) Med Classific ation: Respirato ry Therapy Agents aspirin 81 mg tablet,tavon yed release 02-07 00:00: 00 Yes [id number] BLOOD THINNER 1 tablet DAILY 1 tablet DAILY (route: oral) Med Classific ation: Hematolog ical Agents atorvastati n 80 mg tablet 2023-11 00:00: 00 Yes [id number] CHOLESTEROL CONTROL 1 tablet EVERY PM 1 tablet EVERY PM (route: oral) Med Classific ation: Cardiovas cular Therapy Agents carboxymeth ylcellulose sodium 0.5 % eye drops 02-14 00:00: 00 Yes [id number] DRY EYES 1 drops EVERY 6 HOURS 1 drops EVERY 6 HOURS (route: ophthalmic (eye)) Med Classific ation: Ophthalmi c Agents carvedilol 6.25 mg tablet 02-07 00:00: 00 Yes [id number] HEART FAILURE 0.5 tablet 2 TIMES DAILY 0.5 tablet 2 TIMES DAILY (route: oral) Med Classific ation: Cardiovas cular Therapy Agents clopidogrel 75 mg tablet 2023-11 00:00: 00 Yes [id number] BLOOD THINNER 1 tablet DAILY 1 tablet DAILY (route: oral) Med Classific ation: Hematolog ical Agents duloxetine 60 mg capsule,del ayed release 02-08 00:00: 00 Yes [id number] NERVE PAIN 1 capsule DAILY 1 capsule DAILY (route: oral) Med Classific ation: Central Nervous System Agents ergocalcife rol (vitamin D2) 1,250 mcg (50,000 unit) capsule 2023-11 0-16 00:00: 00 Yes [id number] SUPPLEMENT 1 capsule WEEKLY 1 capsule WEEKLY (route: oral) Med Classific ation: Electroly te Balance-N utritiona l Products ferrous sulfate 325 mg (65 mg iron) tablet 2023-11 0-16 00:00: 00 Yes [id number] ANEMIA 1 tablet DAILY 1 tablet DAILY (route: oral) Med Classific ation: Electroly te Balance-N utritiona l Products folic acid 1 mg tablet 2023-11 0-16 00:00: 00 Yes [id number] SUPPLEMENT 1 tablet DAILY 1 tablet DAILY (route: oral) Med Classific ation: Electroly te Balance-N utritiona l Products glucose 4 gram chewable tablet 3-05 00:00: 00 Yes [id number] LOW BLOOD SUGAR Per instruc tions NEEDED Per instructio ns NEEDED (route: oral) Med Classific ation: Endocrine isosorbide mononitrate ER 30 mg tablet,exte nded release 24 hr 04-11 00:00: 00 Yes [id number] CHEST PAIN CONTROL 0.5 tablet DAILY 0.5 tablet DAILY (route: oral) Med Classific ation: Cardiovas cular Therapy Agents magnesium oxide 400 mg (241.3 mg magnesium) tablet 2023-11 00:00: 00 Yes [id number] SUPPLEMENT 1 tablet 2 TIMES DAILY 1 tablet 2 TIMES DAILY (route: oral) Med Classific ation: Electroly te Balance-N utritiona l Products metformin ER 750 mg tablet,exte nded release 24 hr 2023-1116 00:00: 00 Yes [id number] BLOOD SUGAR CONTROL 1 tablet DAILY 1 tablet DAILY (route: oral) Med Classific ation: Endocrine methocarbam ol 500 mg tablet 04-11 00:00: 00 Yes [id number] MUSCLE SPASMS 1 tablet 2 TIMES DAILY 1 tablet 2 TIMES DAILY (route: oral) Med Classific ation: Locomotor System multivitami n tablet 4-09 00:00: 00 Yes [id number] SUPPLEMENT 1 tablet DAILY 1 tablet DAILY (route: oral) Med Classific ation: Electroly te Balance-N utritiona l Products omeprazole 40 mg capsule,del ayed release 04-11 00:00: 00 Yes [id number] GERD 1 capsule EVERY AM 1 capsule EVERY AM (route: oral) Med Classific ation: Gastroint estinal Therapy Agents pregabalin 100 mg capsule 2023-11 00:00: 00 Yes [id number] NERVE PAIN 1 capsule 2 TIMES DAILY [...] ACCEPT ORDERS FROM CONSULTING PHYSICIANS:DR Imelda QUAN (AMMUNITION STORAGE SUPERINTENDENT), DR Michelle BAIRD (PCP) RN TO OBSERVE AND ASSESS, REJOINER/BAR STEWARD TO OBSERVE FOR RISK FOR FALLS AND INSTRUCT IN FALL PREVENTION, HOME SAFETY, MEDICATION MANAGEMENT, INFECTION PREVENTION, AND NUTRITION MANAGEMENT. RN/REJOINER/BAR STEWARD NURSE MAY PERFORM O2 SATURATION LEVEL. RN TO ASSESS/REJOINER TO OBSERVE PATIENT, WITH NOTIFICATION TO THE PHYSICIAN IF SATURATION IS 90% IN THE ABSENCE OF MORE SPECIFIC PARAMETERS FROM THE PHYSICIAN. AGENCY MAY PERFORM A RESUMPTION OF CARE VISIT FOLLOWING ANY HOSPITAL ADMISSION. RN/REJOINER/BAR STEWARD TO MONITOR CO-MORBID CONDITIONS LISTED ON THE PLAN OF CARE AND ANY NEW CONDITIONS THAT PRESENT THEMSELVES DURING THIS EPISODE TO IDENTIFY CHANGES AND INTERVENE TO MINIMIZE COMPLICATIONS. [code = RN TO OBSERVE, ASSESS, EVALUATE, AND DEVELOP AN INDIVIDUALIZED PLAN OF CARE. AGENCY MAY ACCEPT ORDERS FROM CONSULTING PHYSICIANS:DR Imelda QUAN (AMMUNITION STORAGE SUPERINTENDENT), DR Michelle BAIRD (PCP) RN TO OBSERVE AND ASSESS, REJOINER/BAR STEWARD TO OBSERVE FOR RISK FOR FALLS AND INSTRUCT IN FALL PREVENTION, HOME SAFETY, MEDICATION MANAGEMENT, INFECTION PREVENTION, AND NUTRITION MANAGEMENT. RN/REJOINER/BAR STEWARD NURSE MAY PERFORM O2 SATURATION LEVEL. RN TO ASSESS/REJOINER TO OBSERVE PATIENT, WITH NOTIFICATION TO THE PHYSICIAN IF SATURATION IS 90% IN THE ABSENCE OF MORE SPECIFIC PARAMETERS FROM THE PHYSICIAN. AGENCY MAY PERFORM A RESUMPTION OF CARE VISIT FOLLOWING ANY HOSPITAL ADMISSION. RN/REJOINER/BAR STEWARD TO MONITOR CO-MORBID CONDITIONS LISTED ON THE PLAN OF CARE AND ANY NEW CONDITIONS THAT PRESENT THEMSELVES DURING THIS EPISODE TO IDENTIFY CHANGES AND INTERVENE TO MINIMIZE COMPLICATIONS.] Future Scheduled Test MEDICATION MANAGEMENT; RN/REJOINER/BAR STEWARD TO REVIEW MEDICATIONS FOR INTERACTIONS, EFFECTIVENESS OF DRUG THERAPY, AND SIGNS/SYMPTOMS OF ADVERSE REACTIONS. MAY INSTRUCT AND REINFORCE MEDICATION TEACHING RELATED TO THE USE OF MEDICATIONS, DOSAGE, FREQUENCY, PURPOSE, SIDE EFFECTS, AND TO REPORT COMPLICATIONS. [code = MEDICATION MANAGEMENT; RN/REJOINER/BAR STEWARD TO REVIEW MEDICATIONS FOR INTERACTIONS, EFFECTIVENESS OF DRUG THERAPY, AND SIGNS/SYMPTOMS OF ADVERSE REACTIONS. MAY INSTRUCT AND REINFORCE MEDICATION TEACHING RELATED TO THE USE OF MEDICATIONS, DOSAGE, FREQUENCY, PURPOSE, SIDE EFFECTS, AND TO REPORT COMPLICATIONS.] Future Scheduled Test ANTICOAGUL ATION MANAGEMENT; PLAVIX RN TO ASSESS AND TEACH, REJOINER/BAR STEWARD TO OBSERVE/TEACH/MONITOR EFFECTIVENESS OF ANTICOAGULATION THERAPY. RN/REJOINER/BAR STEWARD TO INSTRUCT ON SIGNS AND SYMPTOMS OF BLEEDING/ADVERSE REACTIONS TO REPORT TO PHYSICIAN. [code = ANTICOAGULATION MANAGEMENT; PLAVIX RN TO ASSESS AND TEACH, REJOINER/BAR STEWARD TO OBSERVE/TEACH/MONITOR EFFECTIVENESS OF ANTICOAGULATION THERAPY. RN/REJOINER/BAR STEWARD TO INSTRUCT ON SIGNS AND SYMPTOMS OF BLEEDING/ADVERSE REACTIONS TO REPORT TO PHYSICIAN. ] Future Scheduled Test RISK FOR H OSPITALIZATION; RN TO ASSESS/TEACH, BAR STEWARD/REJOINER TO OBSERVE/TEACH PATIENT/CAREGIVER ON RISK FOR HOSPITALIZATION/EMERGENCY ROOM VISITS, TEACH SIGNS AND SYMPTOMS THAT PUT PATIENT AT RISK, WHEN TO NOTIFY NURSE/PHYSICIAN OF COMPLICATIONS/DECLINE, AND WHEN TO CALL 911. [code = RISK FOR HOSPITALIZATION; RN TO ASSESS/TEACH, BAR STEWARD/REJOINER TO OBSERVE/TEACH PATIENT/CAREGIVER ON RISK FOR HOSPITALIZATION/EMERGENCY ROOM VISITS, TEACH SIGNS AND SYMPTOMS THAT PUT PATIENT AT RISK, WHEN TO NOTIFY NURSE/PHYSICIAN OF COMPLICATIONS/DECLINE, AND WHEN TO CALL 911.] Future Scheduled Test CARDIOVASC ULAR SYSTEM; RN TO ASSESS/TEACH, REJOINER/BAR STEWARD TO OBSERVE/TEACH RELATED TO ALTERED CARDIOVASCULAR STATUS TO MINIMIZE COMPLICATIONS AND REDUCE HOSPITALIZATION. [code = CARDIOVASCULAR SYSTEM; RN TO ASSESS/TEACH, REJOINER/BAR STEWARD TO OBSERVE/TEACH RELATED TO ALTERED CARDIOVASCULAR STATUS TO MINIMIZE COMPLICATIONS AND REDUCE HOSPITALIZATION.] Future Scheduled Test CORONARY A RTERY BYPASS GRAFT (CABG); RN TO ASSESS/TEACH, REJOINER/BAR STEWARD TO OBSERVE/TEACH WARNING SIGNS AND SYMPTOMS TO AVOID HOSPITALIZATION. MONITOR SURGICAL INCISION SITES FOR S/S OF INFECTION. [code = CORONARY ARTERY BYPASS GRAFT (CABG); RN TO ASSESS/TEACH, REJOINER/BAR STEWARD TO OBSERVE/TEACH WARNING SIGNS AND SYMPTOMS TO AVOID HOSPITALIZATION. MONITOR SURGICAL INCISION SITES FOR S/S OF INFECTION.] Future Scheduled Test HYPERTENSI ON MANAGEMENT; RN TO ASSESS AND TEACH, REJOINER/BAR STEWARD TO OBSERVE AND TEACH WARNING SIGNS AND SYMPTOMS TO AVOID HOSPITALIZATION. [code = HYPERTENSION MANAGEMENT; RN TO ASSESS AND TEACH, REJOINER/BAR STEWARD TO OBSERVE AND TEACH WARNING SIGNS AND SYMPTOMS TO AVOID HOSPITALIZATION.] Future Scheduled Test RESPIRATOR Y SYSTEM MANAGEMENT; RN TO ASSESS AND TEACH, REJOINER/BAR STEWARD TO OBSERVE AND TEACH RELATED TO ALTERED RESPIRATORY STATUS TO MINIMIZE COMPLICATIONS AND REDUCE HOSPITALIZATION. [code = RESPIRATORY SYSTEM MANAGEMENT; RN TO ASSESS AND TEACH, REJOINER/BAR STEWARD TO OBSERVE AND TEACH RELATED TO ALTERED RESPIRATORY STATUS TO MINIMIZE COMPLICATIONS AND REDUCE HOSPITALIZATION.] Future Scheduled Test ASTHMA MAN AGEMENT; RN TO ASSESS AND TEACH, REJOINER/BAR STEWARD TO OBSERVE AND TEACH ASTHMA MANAGEMENT AND PROVIDE EARLY INTERVENTIONS TO MINIMIZE RISK OF HOSPITALIZATION [code = ASTHMA MANAGEMENT; RN TO ASSESS AND TEACH, REJOINER/BAR STEWARD TO OBSERVE AND TEACH ASTHMA MANAGEMENT AND PROVIDE EARLY INTERVENTIONS TO MINIMIZE RISK OF HOSPITALIZATION] Future Scheduled Test RN/REJOINER/BAR STEWARD TO PERFORM/TEACH INCISION CARE TO MIDLINE STERNUM AND LEFT FOREARM SURGICAL INCISIONS. ASSESS FOR SIGNS AND SYMPTOMS OF INFECTION EDUCATED PATIENT. LEAVE INCISIONS OPEN TO AIR. [code = RN/REJOINER/BAR STEWARD TO PERFORM/TEACH INCISION CARE TO MIDLINE STERNUM AND LEFT FOREARM SURGICAL INCISIONS. ASSESS FOR SIGNS AND SYMPTOMS OF INFECTION EDUCATED PATIENT. LEAVE INCISIONS OPEN TO AIR.] Future Scheduled Test PAIN MANAG EMENT; RN TO ASSESS AND TEACH, BAR STEWARD/REJOINER TO OBSERVE AND TEACH AND PROVIDE EDUCATION ON PAIN MANAGEMENT TECHNIQUES. [code = PAIN MANAGEMENT; RN TO ASSESS AND TEACH, BAR STEWARD/REJOINER TO OBSERVE AND TEACH AND PROVIDE EDUCATION ON PAIN MANAGEMENT TECHNIQUES.] Future Scheduled Test DIABETES M ANAGEMENT; RN TO ASSESS AND TEACH, BAR STEWARD/REJOINER TO OBSERVE AND TEACH INSTRUCTIONS OF DIABETIC CARE TO INCLUDE: DIET ADA SKIN CARE, SIGNS AND SYMPTOMS OF HYPO/HYPERGLYCEMIA, PROPER ADMINISTRATION OF DIABETIC MEDICATION. RN/BAR STEWARD/REJOINER TO INSTRUCT ON DIABETIC FOOT CARE AND MONITOR FOR SKIN LESIONS ON LOWER EXTREMITIES. BLOOD GLUCOSE TESTING DAILY. RN TO ASSESS AND TEACH, BAR STEWARD/REJOINER TO OBSERVE AND TEACH PATIENT/CAREGIVER ABILITY TO PERFORM AND RECORD BLOOD GLUCOSE TESTING ORDERED AND TO REPORT ABNORMAL FINDINGS TO PHYSICIAN. RN/BAR STEWARD/REJOINER MAY PERFORM BLOOD GLUCOSE TEST NEEDED. RN/BAR STEWARD/REJOINER TO REPORT TO PHYSICIAN BLOOD GLUCOSE READINGS GREATER THAN 300 OR LESS THAN 70. RN/BAR STEWARD/REJOINER TO INSTRUCT PATIENT ON IMPORTANCE OF HGBA1C MONITORING, KIDNEY FUNCTION TEST, EYE AND FOOT EXAMS. [code = DIABETES MANAGEMENT; RN TO ASSESS AND TEACH, BAR STEWARD/REJOINER TO OBSERVE AND TEACH INSTRUCTIONS OF DIABETIC CARE TO INCLUDE: DIET ADA SKIN CARE, SIGNS AND SYMPTOMS OF HYPO/HYPERGLYCEMIA, PROPER ADMINISTRATION OF DIABETIC MEDICATION. RN/BAR STEWARD/REJOINER TO INSTRUCT ON DIABETIC FOOT CARE AND MONITOR FOR SKIN LESIONS ON LOWER EXTREMITIES. BLOOD GLUCOSE TESTING DAILY. RN TO ASSESS AND TEACH, BAR STEWARD/REJOINER TO OBSERVE AND TEACH PATIENT/CAREGIVER ABILITY TO PERFORM AND RECORD BLOOD GLUCOSE TESTING ORDERED AND TO REPORT ABNORMAL FINDINGS TO PHYSICIAN. RN/BAR STEWARD/REJOINER MAY PERFORM BLOOD GLUCOSE TEST NEEDED. RN/BAR STEWARD/REJOINER TO REPORT TO PHYSICIAN BLOOD GLUCOSE READINGS GREATER THAN 300 OR LESS THAN 70. RN/BAR STEWARD/REJOINER TO INSTRUCT PATIENT ON IMPORTANCE OF HGBA1C MONITORING, KIDNEY FUNCTION TEST, EYE AND FOOT EXAMS.] Future Scheduled Test ANEMIA MAN AGEMENT; RN TO ASSESS AND TEACH, BAR STEWARD/REJOINER TO OBSERVE AND TEACH AND PROVIDE EDUCATION ON ANEMIA. [code = ANEMIA MANAGEMENT; RN TO ASSESS AND TEACH, BAR STEWARD/REJOINER TO OBSERVE AND TEACH AND PROVIDE EDUCATION ON ANEMIA.] Future Scheduled Test FALL REDUC TION MANAGEMENT; RN TO ASSESS AND TEACH, REJOINER/BAR STEWARD TO OBSERVE AND TEACH ON EDUCATION AND INTERVENTION TO IDENTIFY FALL RISK FACTORS SUCH MEDICATIONS THAT MAY CAUSE DIZZINESS, CHRONIC DISEASES, PSYCHOLOGICAL FACTORS, AND EMPOWER/EDUCATE PATIENT/CAREGIVER TO MINIMIZE FALL RISK. [code = FALL REDUCTION MANAGEMENT; RN TO ASSESS AND TEACH, REJOINER/BAR STEWARD TO OBSERVE AND TEACH ON EDUCATION AND INTERVENTION TO IDENTIFY FALL RISK FACTORS SUCH MEDICATIONS THAT MAY CAUSE DIZZINESS, CHRONIC DISEASES, PSYCHOLOGICAL FACTORS, AND EMPOWER/EDUCATE PATIENT/CAREGIVER TO MINIMIZE FALL RISK.] Future Scheduled Test PRN VISITS ; NUMBER OF RN/REJOINER/BAR STEWARD VISITS: 1 RN/REJOINER/BAR STEWARD TO PERFORM: CARDIAC ASSESSMENT FOR THE FOLLOWING REASONS: COMPLICATIONS [code = PRN VISITS; NUMBER OF RN/REJOINER/BAR STEWARD VISITS: 1 RN/REJOINER/BAR STEWARD TO PERFORM: CARDIAC ASSESSMENT FOR THE FOLLOWING [...] 2024-10-26 00:00:00 Outpatient NEW ADMISSION SHAKIR VARELA [facility] [id number] 2024-10-26 00:00:00 DISCHARGED /TRANSFERR ED TO A SHORT-[facility] PATIENT IN FACILITY AT END OF EPISODE HH ONLY - TRANSFER TO HOSPITAL 80.00
--- OUTSIDE RECORDS SUMMARY | 2024-11-17 04:30 | XMS_ITS | Encounter Summary ---
Author Organization [facility] Healthcare Address [address] [place] [address] Care Team Providers Care Labor Custodian Name Role Phone Juan Retnaa MD Primary Care Provider [phone] [facility], Alverto Gutierrez Unavailable Encounter Details Date Type Department Care Team (Latest Contact Info) Description 07/14/2024 12:30 PM CDT - 07/14/2024 11:59 PM CDT Hospital Encounter [facility] [address] [place] [id number] Preoperative testing Discharge Disposition: Discharge to home or self [...] on file 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 Gender Identity Not on file Sexual Orientation Not on file documented as of this encounter Medications at Time of Discharge albuterol HFA (PROVENTIL HFA,VENTOLIN HFA,PROAIR HFA) 90 mcg/actuation inhaler Inhale 2 puffs every 6 (six) hours as needed for wheezing ammonium lactate (AMLACTIN) 12 % creamIndications:D ry Skin Apply 1 Application topically as needed for dry skin 02/11/2024 aspirin 81 mg enteric coated tablet Take 1 tablet (81 mg total) by mouth daily atorvastatin (LIPITOR) 80 mg tablet Take 1 tablet (80 mg total) by mouth daily 08/12/2024 bumetanide (BUMEX) 1 mg tablet Take 0.5 tablets (0.5 mg total) by mouth 06/07/2024 carboxymethylcell- glycerin,PF, 0.5-0.9 % dropsIndications:D ry Eye [...] day 08/11/2024 5 acetaminophen (TYLENOL) 325 mg tabletIndications: Pain Take 2 tablets (650 mg total) by mouth every 6 (six) hours as needed for fever 08/11/2024 4 atorvastatin (LIPITOR) 40 mg tabletIndications: hyperlipidemia Take 1.5 tablets (60 mg total) by mouth every evening 06/07/2024 4 bumetanide (BUMEX) 1 mg tabletIndications: Edema Take 0.5 tablets (0.5 mg total) by mouth as needed (edema- SOB and leg swelling) 06/07/2024 4 carvediloL (COREG) 6.25 mg tabletIndications: Heart failure Take 0.5 tablets (3.125 mg total) by mouth 2 (two) times a day with meals 4 chlorhexidine (PERIDEX) 0.12 % solutionIndication s:Prophylaxis, Surgical Apply 15 mL to the mouth or throat 3 (three) times a day for 5 days Swish and rinse for at least 30 seconds . Do not rinse or drink for 1-2 hours after use. 120 mL 07/19/2024 4 dextrose 15 gram/32 mL gel in packetIndications: hypoglycemic disorder Take 32 mL (15 g total) by mouth every 15 (fifteen) minutes as needed (blood glucose less than 70 mg/dL) 08/11/2024 4 ibuprofen (ADVIL,MOTRIN) 800 mg tabletIndications: Pain Take 1 tablet (800 mg total) by mouth every 6 (six) hours 07/04/2024 4 insulin aspart U-100 (NovoLOG) 100 unit/mL (3 mL) insulin penIndications:typ e 2 diabetes mellitus Inject 6 Units under the skin daily with dinner 4 insulin glargine (LANTUS, SEMGLEE) 100 unit/mL subcutaneous syringeIndications :Diabetes Mellitus Inject 90 Units under the skin every morning 4 insulin glargine (TOUJEO MAX) 300 unit/mL [...] Sliding Scale Insulin Instructions. 08/11/2024 4 metFORMIN (GLUCOPHAGE) 1,000 mg tabletIndications: type 2 diabetes mellitus Take 1 tablet (1,000 mg total) by mouth 2 (two) times a day with meals metFORMIN XR (GLUCOPHAGE XR) 500 mg 24 hr tablet Take 2 tablets (1,000 mg total) by mouth 02/02/2024 4 mupirocin (BACTROBAN) 2 % ointmentIndication s:Prophylaxis, Surgical Apply to each nostril 2 (two) times a day for 5 days 22 g 07/19/2024 4 naproxen (ALEVE) 220 mg tabletIndications: Pain Take 1 tablet (220 mg total) by mouth every 12 (twelve) hours as needed for headaches 07/02/2023 4 naproxen (ALEVE) 220 mg tablet Take 1 tablet (220 mg total) by mouth 07/02/2023 4 pen needle, diabetic 32 gauge x 5/32 needle Use as directed 3 times a day. 08/11/2024 4 pregabalin (LYRICA) 200 mg capsuleIndications :Diabetic Peripheral Neuropathy Take 1 capsule (200 mg total) by mouth 2 (two) times a day 4 sacubitriL-valsart an (ENTRESTO) 24-26 mg tabletIndications: chronic heart failure Take 1 tablet by mouth 2 (two) times a day 4 semaglutide (OZEMPIC) 1 mg/dose (4 mg/3 mL) pen injector injectionIndicatio ns:type 2 diabetes mellitus Inject 1 mg under the skin every 7 days Wednesday05/01/2024 4 semaglutide (OZEMPIC) 1 mg/dose (4 mg/3 mL) pen injector injection Inject under the skin 05/01/2024 4 documented as of this encounter Discharge Disposition Disposition Code Departure Means Destination Discharge to home or self care documented in this encounter Plan of Treatment Not on file documented as of this encounter Procedures Procedure Name Priority Date/Time Associated Diagnosis Comments XR CHEST PA LATERAL 2 VIEWS Schedule Routine, Read Routine (OP Routine) 07/14/2024 12:54 PM CDT Preoperative testing documented in this encounter Results * XR Chest PA Lateral 2 View (07/14/2024 12:54 PM CDT) Anatomical Region Laterality Modality Body, Chest N/A Computed Radiogr aphy 07/14/2024 1:39 PM CDT Impressions 07/14/2024 3:13 PM CDT There are no prior chest radiographs for comparison. ??No pulmonary consolidation. ??No pleural effusion. ??No pneumothorax. Mild cardiomegaly. ??Mild pulmonary edema. Dictated by: Breille Ang MD, MPH The radiology attending physician [...] it. Electronically signed by: Altagracia Stafford M.D. Shanatl Sánchez MOTOR EXPERT IMG XR PROCEDURES Final Result documented in this encounter Visit Diagnoses Diagnosis Preoperative testing Unspecified pre-operative examination documented in this encounter Care Teams Labor Custodian Relationship Specialty Start Date End Date Juan Retana MD [address] [facility] [address] [place] [address] PCP - General Internal Medicine 07/05/24 [facility], Alverto Gutierrez [address] [place] [address] Referring Physician Cardiology 07/05/24 documented as of this encounter
--- OUTSIDE RECORDS SUMMARY | 2024-11-17 04:30 | XMS_ITS | Encounter Summary ---
Author Organization [facility] Healthcare Address [address] [place] [address] Care Team Providers Care Retail Merchandising Coordinator Name Role Phone Juan Retana MD Primary Care Provider [phone] Encounter Details Date Type Department Care Team (Late st Contact Info) Description 06/28/2020 3:09 PM CDT Anesthesia Event [facility] Operating Room [facility] ([facility]) [address] [place] [address] Melody Griffin MD [address] [place] [address] Milagros Garcia NP [address] [facility] [id number] [place] [address] Anesthesia Record Procedure Summary Procedure Name Responsible Anesthesiologist Anesthesia Start Time Anesthesia Stop Time REPAIR ECTROPION- BILATERAL (Bilateral: Eye) Melody Griffin MD 06/28/20 1509 06/28/20 1620 Events Date Time Event Comment 06/28/2020 1223 In Preop 1237 1509 An Start 1512 An Start Data 1512 In Room 1515 Start Supplemental O2 1518 An Induction The patient was reevaluated immediately before moderate or deep sedation use and before anesthesia induction. 1521 Proc Start 1528 Anesthesia Ready 1532 Incision Start 1609 Proc Fin 1613 an stop data 1615 Out of Room 1620 Handoff to RN I completed my handoff [...] disposition at the time of handoff: PACU 1620 An Stop Meds Name Total midazolam PF 2 mg propofol 120 mg lidocaine (cardiac) syringe 2 % 100 mg Lactated Ringer's (LR) infusion 700 mL * Agents Name O2% N2O O2 * Blood No blood administrations on file. Lines, Drains, and Airways Type Details Placement Removal Peripheral IV Placement Date: 06/28/20; Placement Time: 1250; Catheter Size: 20 G; Orientation: Left; Location: Forearm; Site Prep: Chlorhexidine; Inserted by: anesthesigiselle HENSLEY; Removal Date: 06/28/20; Removal Time: 1708; Removal Reason: Discharge 06/28/20 1250 by Eloise Lyn RN 06/28/20 1708 by Adia Betancourt RN RETIRED Surgical Site 06/28/20; 1525; Le ft; Eye; 10/10/24 (Retired LDA, Removed/Completed by [facility] with LDA Utility); 1213 (Retired LDA, Removed/Completed by [facility] with LDA Utility); Other (Comment) 06/28/20 1525 by Celina Eagle RN 10/10/24 1213 by Discharge Provider, Automatic RETIRED Surgical Site 06/28/20; 1525; Ri ght; Eye; 10/10/24 (Retired LDA, Removed/Completed by [facility] with LDA Utility); 1213 (Retired LDA, Removed/Completed by [facility] with LDA Utility); Other (Comment) 06/28/20 1525 by Celina Eagle RN 10/10/24 1213 by Discharge Provider, Automatic documented in this encounter Social History Tobacco Use Types Packs/Day Years Used Date Smoking Tobacco: Former Cigarettes 1 961 - 06/11/1980 Smokeless Tobacco: Never Alcohol Use Standard Drinks/Week Comments Yes 0 (1 standard drink = 0.6 oz pur e alcohol) rare - maybe 1 beer/month Sex and Gender Information Value Date Recorded Sex Assigned at Not on file 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 OR POD 4 ROOM N / 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 [H02.132, H02.135]) Surgeon: Carlos Felix MD Responsible Provider: Melody Griffin MD Anesthesia Type: MAC ASA Status: 2 Anesthesia Type: MAC Last vitals BP 112/56 Pulse 73 Temp 36.7 ??C (98.1 ??F) (Temporal) Resp 13 SpO2 95% Anesthesia Post Evaluation Patient location during evaluation: PACU Patient participation: complete - patient participated Level of consciousness: fully awake Pain management: adequate Airway patency: adequate Anesthetic complications: no Cardiovascular status: acceptable Respiratory status: acceptable Hydration status: acceptable Pt is: normothermic * Anesthesia Preprocedure Evaluation - Meloyd Griffin MD - 06/24/2020 8:58 AM CDT Images from the original note were not included. [facility] for Preoperative Assessment and Planning Preoperative Evaluation Record Evaluation type/location: TPAP from [facility] Planned procedure site: [facility] OR (Pod 4) Date: 06/24/20 NOTE: This note represents a preoperative evaluation initiated via telephone interview. NO PHYSICALEXAM was performed at the time of initial assessment. A physical exam may be added to this note anddocumented below. Anesthesia Evaluation Abiel Fink is a 70 y.o. male Procedure(s): REPAIR ECTROPION- BILATERAL EXCISION CYST/LESION/MASS - EYELIDS BILATERAL Pre-Op Diagnosis Codes: * Senile ectropion of both lower eyelids [H02.132, H02.135] HISTORY HPI Abiel Fink is a 70 year old male presenting for repair ectropion, bilateral for constant tearing and pain of eyes. Past Medical History Information obtained from: patient and chart. Neurological Pertinent negatives: seizures; neuromuscular disease; CVA/stroke; TIA; CEA; ICA stenosis; dementia/mild cognitive impairment and carotid artery stent Cardiovascular + Hypertension (does not check ambulatory BP readings) Pertinent negatives: CAD ; AR ; CABG ; valvular heart disease; valve replacement; atrial fibrillation; arrhythmia; pacemaker/ICD; PVD; DVT/PE; negative for CHF; drug-eluting stent(s); bare metal stent(s) and coronary angioplasty Respiratory + Asthma Dyspnea frequency: daily. Rescue inhaler use: > 2 days/week but not daily. Hospitalizations/ER in the last year: 0. + Sleep apnea (JACQUELINE) Prescribed device: CPAP and PAP compliant. CPAP settin(cmH2O). Pertinent negatives: COPD; pulmonary hypertension; no O2 use outside the hospital; no history of oral steroid use; no prior intubation for respiratory failure due to asthma and non-smoker Hepatic / Heme Pertinent negatives: liver disease; history of anemia; history of thrombocytopenia and history of Janell positive Gastrointestinal + GERD - on daily therapy. Asymptomatic. + Hiatal hernia Renal / Pertinent negatives: renal disease; dialysis and nephrolithiasis Musculoskeletal/Pain Pertinent negatives: chronic pain; chronic opioid use and previous treatment for opioid use disorder Endocrine / Other + Diabetes mellitus - Diabetes type 2. Diagnosed: 2004. Diabetic complications: neuropathy. Outpatient insulin use: current. Pt reported high glucose range is 150. Pt reported HgA1c: 7.4. Pt reported HgA1c date: 2018. + Obesity (BMI >30) Pertinent negatives: thyroid disease; cancer history; rheumatological disease and transplanted organ Functional Capacity Functional capacity: <4 METs Comments: Fish, climbing stairs at a slow steady pace Review of Systems + SOB (chronic GARCÍA with stair climbing, bring in groceries into the house, with no associated symtpoms, lasting until completion of activity, unchanged x 10 years- followed by primary physiciant) + previous transfusion (remote history of PRBC to ruptured kidney at age 11, denies transfusion reaction) + numbness/tingling (chronic bilateral legs/feet neuropathy, improves with lyrica) + vision loss (wears corrective lenses) + dentures/partials (partial upper/lower denture plates) Pertinent negatives: productive cough; wheezing; recent cold/flu; fever; chest pain; palpitations; orthopnea; pedal edema; PND; Sickle Cell disease/trait; transfusion reaction; melena/hematochezia; easy bruising; bleeding problems; syncope; dizziness; muscle weakness; chronic pain; hard of hearing;heartburn; nausea; dysphagia; diarrhea; chipped/loose teeth; abdominal pain; diaphoresis and no unexpected weight change Comments: Pt denies fever, cough, worsening shortness of breath, sore throat, diarrhea, denies lackof taste or smell, denies exposure to the coronavirus PAT Summary and Plans Cardiac risk classification of planned procedure: low cardiac risk. Disposition: suitable for outpatient surgery center. Preoperative assessment status: complete. Initial preoperative evaluation discussed with: Bharat Ahumada MD Additional comments: Abiel Fikn is a 70 y.o. male who is being evaluated prior to undergoing a low cardiac risk surgery. Revised Cardiac Risk Index factors are (insulin therapy for diabetes) for atotal RCRI of 1 out of 6. Functional capacity is <4 METs (specifically:climb stairs at a slow steady pace). This assessment was performed via telephone. Therefore the physical exam has been deferred to the day of surgery team. The patient was provided with preoperative instructions for their medications. The patient was instructed to shower/bathe the night prior and the morning of the planned procedure using an antibacterial soap. Patient instructions were provided by telephone and in writing sent via [employer] mail. Patient verbalized understanding of preoperative plan. Discussed diabetes prescription and dosage with attending, pt ok to proceed with planned surgery inPOD 4. Obstructive sleep apnea (JACQUELINE) screening status is HIGH RISK due to known JACQUELINE. JACQUELINE orders initiated for DOS Blood bank needs for day of procedure: No type and screen needed Will obtain FBS on DOS. Patient with No known exposure to COVID19 and no concerning symptoms of COVID19. Plan for pre-procedure COVID19 testing: Per CPAP, COVID19 testing not indicated for planned procedure. . TPAP assessment complete. Preoperative evaluation performed by Milagros Garcia NP on 08/17/20 at 9:13 AM.. Patient Active Problem List Diagnosis ??? Senile ectropion of both lower eyelids ??? Lesion of eyelid of both eyes Past Medical History: Diagnosis Date ??? Asthma ??? Diabetes mellitus (CMS/HCC) ??? GERD (gastroesophageal reflux disease) ??? Hypertension ??? Sleep apnea pt uses CPAP machine nightly Past Surgical History: Procedure Laterality Date ??? KIDNEY SURGERY 1961 ??? TOTAL KNEE ARTHROPLASTY Left 2017 ??? TOTAL KNEE ARTHROPLASTY Right 2019 Allergies Allergen Reactions ??? Tramadol Itching Med List Status: Nurse Complete Set By: Rickie Means RN at 06/23/2020 12:45 PM Taking? Last Dose Start Date End Date Provider albuterol HFA (PROVENTIL HFA,VENTOLIN HFA,PROAIR HFA) 90 mcg/actuation inhaler -- -- Historical Provider, MD PEREZoxetine DR (CYMBALTA) 60 mg capsule -- -- Historical Provider, insulin aspart U-100 (NovoLOG) 100 unit/mL (3 mL) insulin pen -- -- Historical Provider, insulin glargine (LANTUS) 100 unit/mL injection -- -- Historical Provider, lisinopriL (PRINIVIL,ZESTRIL) 20 mg tablet -- -- Historical Provider, metFORMIN (GLUCOPHAGE) 1,000 mg tablet -- -- Historical Provider, omeprazole (PriLOSEC) 20 mg capsule -- -- Historical Provider, pregabalin (LYRICA) 200 mg capsule -- -- Historical Provider, No current facility-administered medications for this encounter. Current Outpatient Medications: ??? albuterol HFA (PROVENTIL HFA,VENTOLIN HFA,PROAIR HFA) 90 mcg/actuation inhaler ??? DULoxetine DR (CYMBALTA) 60 mg capsule ??? insulin aspart U-100 (NovoLOG) 100 unit/mL (3 mL) insulin pen ??? insulin glargine (LANTUS) 100 unit/mL injection ??? lisinopriL (PRINIVIL,ZESTRIL) 20 mg tablet ??? metFORMIN (GLUCOPHAGE) 1,000 mg tablet ??? omeprazole (PriLOSEC) 20 mg capsule ??? pregabalin (LYRICA) 200 mg capsule Social History Tobacco Use Smoking Status Former Smoker ??? Start date: 1960 ??? Quit date: 06/11/1980 ??? Years since quittin.0 Smokeless Tobacco Never Used Substance and Sexual Activity Alcohol Use Yes Comment: rare - maybe 1 beer/month Substance and Sexual Activity Drug Use Not Currently Family History Problem Relation Age of Onset ??? Cardiomyopathy Mother ??? Anesthesia problems Neg Hx There were no vitals filed for this visit. PT: No results found for requested labs within last 720 hours. INR: No results found for requested labs within last 720 hours. APTT: No results found for requested labs within last 720 hours. Hgb A1C: No results found for requested labs within last 720 hours. CBC RBC: No results found for requested labs within last 720 hours. RDW: No results found for requested labs within last 720 hours. MCHC: No results found for requested labs within last 720 hours. MCH: No results found for requested labs within last 720 hours. MCV: No results found for requested labs within last 720 hours. Hct: No results found for requested labs within last 720 hours. Hgb: No results found for requested labs within last 720 hours. WBC: No results found for requested labs within last 720 hours. MPV: No results found for requested labs within last 720 hours. Platelets: No results found for requested labs within last 720 hours. RDW CV: No results found for requested labs within last 720 hours. RDW Sd: No results found for requested labs within last 720 hours. BMP Glucose: No results found for requested labs within last 720 hours. Calcium: No results found for requested labs within last 720 hours. Sodium: No results found for requested labs within last 720 hours. Potassium: No results found for requested labs within last 720 hours. CO2: No results found for requested labs within last 720 hours. Chloride: No results found for requested labs within last 720 hours. BUN: No results found for requested labs within last 720 hours. Creatinine: No results found for requested labs within last 720 hours. John index score: 100 DOS Physical Exam Medical history, medications, and allergies reviewed. Attestation: This PAT evaluation Airway Exam: Mallampati: II Cervical ROM: FROM Cardiovascular Exam: Rate: regular Rhythm: regular Pulmonary Exam: LCTA, bilat Anesthesia Plan ASA 2 My patient is approved for the Anesthesia Controlled Medication protocol when under care of a WREATH MACHINE OPERATOR Planned anesthesia: MAC Induction: Induction: intravenous. Postoperative Plan: Patient's planned disposition post procedure is Outpatient. Informed Consent: Discussed plan with WREATH MACHINE OPERATOR. Anesthesia plan and risks discussed with patient. [...] MAR Action Action Date Dose Rate Site Lactated Ringer's (LR) infusion 30 mL/hr, intravenous, Continuous, Starting on Wed06/28/20 at 1300 Rate/Dose Verify 06/28/2020 3:09 PM CDT 30 mL/hr New Bag 06/28/2020 12:53 PM CDT 30 mL/hr 30 mL/hr lidocaine (cardiac) (XYLOCAINE) preservative free injection As needed, Starting on Wed06/28/20 at 1518, Anesthesia Intra-op, Indications: Ventricular ArrhythmiasIndications:Ventricular Arrhythmias Given 06/28/2020 3:18 PM CDT 100 mg midazolam (VERSED) preservative free injection intravenous, Administer over 2 Minutes, As needed, Starting on Wed06/28/20 at 1513, Anesthesia Intra-op Given 06/28/2020 3:13 PM CDT 2 mg propofoL (DIPRIVAN) IV intravenous, As needed, Starting on Wed06/28/20 at 1518, Anesthesia Intra-op Given 06/28/2020 3:20 PM CDT 40 mg Given 06/28/2020 3:19 PM CDT 40 mg Given 06/28/2020 3:18 PM CDT 40 mg documented in this encounter Care Teams Retail Merchandising Coordinator Relationship Specialty Start Date End Date Juan eRtana MD [address] [facility] TE[address] [place] [address] PCP - General Internal Medicine 06/11/20 07/04/20 documented as of this encounter
--- OUTSIDE RECORDS SUMMARY | 2024-11-17 04:30 | XMS_ITS | Encounter Summary ---
Author Organization [facility] Healthcare Address [address] [place] [address] Care Team Providers Care Hooker On Name Role Phone Juan Retana MD Primary Care Provider [phone] 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 Gender Identity Not on file Sexual Orientation Not on file documented as of this encounter Medications at Time of Discharge albuterol HFA (PROVENTIL HFA,VENTOLIN HFA,PROAIR HFA) 90 mcg/actuation inhaler Inhale 2 puffs every 6 (six) hours as needed for wheezing ammonium lactate (AMLACTIN) 12 % creamIndications: Dry Skin Apply 1 Application topically as needed for dry skin 02/11/2024 atorvastatin (LIPITOR) 80 mg tablet Take 1 [...] 2 (two) times a day 08/11/2024 5 omeprazole (PriLOSEC) 20 mg capsule Take 1 capsule (20 mg total) by mouth every morning pregabalin (LYRICA) 100 mg capsule Take 1 capsule (100 mg total) by mouth 2 (two) times a day 08/11/2024 5 acetaminophen (TYLENOL) 325 mg tabletIndications :Pain Take 2 tablets (650 mg total) by mouth every 6 (six) hours as needed for fever 08/11/2024 atorvastatin (LIPITOR) 40 mg tabletIndications :hyperlipidemia Take 1.5 tablets (60 mg total) by mouth every evening 06/07/2024 4 bumetanide (BUMEX) 1 mg tabletIndications :Edema Take 0.5 tablets (0.5 mg total) by mouth as needed (edema- SOB and leg swelling) 06/07/2024 dexAMETHasone (DECADRON) 4 mg tablet Take 1 tablet (4 mg total) by mouth 07/04/2024 4 dextrose 15 gram/32 mL gel in packetIndications :hypoglycemic disorder Take 32 mL (15 g total) by mouth every 15 (fifteen) minutes as needed (blood glucose less than 70 mg/dL) 08/11/2024 4 ibuprofen (ADVIL,MOTRIN) 800 mg tabletIndications :Pain Take 1 tablet (800 mg total) by mouth every 6 (six) hours 07/04/2024 4 insulin aspart U-100 (NovoLOG) 100 unit/mL (3 mL) insulin penIndications:ty pe 2 diabetes mellitus Inject 6 Units under the skin daily with dinner 4 insulin glargine (LANTUS) 100 unit/mL injectionIndicati ons:type [...] for Sliding Scale Insulin Instructions. 08/11/2024 4 lisinopriL (PRINIVIL,ZESTRIL ) 20 mg tabletIndications :hypertension Take 20 mg by mouth every morning 4 metFORMIN (GLUCOPHAGE) 1,000 mg tabletIndications :type 2 diabetes mellitus Take 1 tablet (1,000 mg total) by mouth 2 (two) times a day with meals 4 metFORMIN XR (GLUCOPHAGE XR) 500 mg 24 hr tablet Take 2 tablets (1,000 mg total) by mouth 02/02/2024 4 naproxen (ALEVE) 220 mg tabletIndications :Pain Take 1 tablet (220 mg total) by mouth every 12 (twelve) hours as needed for headaches 07/02/2023 4 naproxen (ALEVE) 220 mg tablet Take 1 tablet (220 mg total) by mouth 07/02/2023 4 pen needle, diabetic 32 gauge x needle Use as directed 3 times a day. 08/11/2024 4 pregabalin (LYRICA) 200 mg capsuleIndication s:Diabetic Peripheral Neuropathy Take 1 capsule (200 mg total) by mouth 2 (two) times a day 4 semaglutide (OZEMPIC) 1 mg/dose (4 mg/3 mL) pen injector injectionIndicati ons:type 2 diabetes mellitus Inject 1 mg under [...] Procedure Name Priority Date/Time Associated Diagnosis Comments IR OUTSIDE REFERENCE Routine 07/04/2024 9:42 PM CDT documented in this encounter Results * IR Outside Reference (07/04/2024 9:42 PM CDT) Impressions [facility] - 07/04/2024 9:42 PM CDT These images are for Reference purposes only and have not been reviewed by [facility]. ??There will be no report generated by a [facility]iologist. Narrative [facility] - 07/04/2024 9:42 PM CDT EXAMINATION: ??Images For Reference Purposes Only us Johnathan Mckee MD IMG IR PROCEDURES Final Result [facility] documented in this encounter Visit Diagnoses Not on filedocumented in this encounter Care Teams Hooker On Relationship Specialty Start Date End Date Juan Retana MD [address] [facility]IMARY [facility]ARE TE[facility] [address] [place] [address] PCP - General Internal Medicine 07/05/24 [facility], [facility]to Gutierrez [address] [place] [address] Referring Physician Cardiology 07/05/24 documented as of this encounter
--- OUTSIDE RECORDS SUMMARY | 2024-11-17 04:30 | XMS_ITS | Encounter Summary ---
Author Organization [facility] Healthcare Address [address] [place] [address] Care Team Providers Care Lumber Tripper Name Role Phone Juan Retana MD Primary Care Provider [phone] Encounter Details Date Type Department Care Team (Latest Contact Info) Description 06/28/2020 11:49 AM CDT - 06/28/2020 5:12 PM CDT Hospital Encounter [facility] Operating Room [facility] [address] [place] [id number] Carlos Felix MD [address] [id number] Senile ectropion of both lower eyelids; Lesion of eyelid of both eyes Discharge Disposition: Discharge to home or self [...] on file 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 Gender Identity Not on file Sexual Orientation Not on file documented as of this encounter Last Filed Vital Signs Vital Sign Reading Time Taken Comments Blood Pressure 140/59 06/28/2020 4:43 PM CDT Pulse 65 06/28/2020 4:43 PM CDT Temperature 36.5 ??C (97.7 ??F) 06/28/2020 4 :20 PM CDT Respiratory Rate 13 06/28/2020 4:43 PM CDT Oxygen Saturation 95% 06/28/2020 4:4 3 PM CDT Inhaled Oxygen Concentration - - Weight 113.4 kg (250 lb) 06/23/2020 12: 50 PM CDT pt guessing his weight, he has no idea; has no scale Height 175.3 cm (5' 9 ) 06/28/2020 12:3 5 PM CDT Body Mass Index 36.92 06/23/2020 12:50 PM CDT documented in this encounter Discharge Diagnoses Diagnosis Senile ectropion of right lower eyelid - SENILE ECTROPION OF RIGHT LOWER EYELID Senile ectropion of left lower eyelid - SENILE ECTROPION OF LEFT LOWER EYELID Other specified disorders of eyelid - OTHER SPECIFIED DISORDERS OF EYELID Essential (primary) hypertension - ESSENTIAL (PRIMARY) HYPERTENSION Unspecified essential hypertension Type 2 diabetes mellitus with diabetic neuropathy, unspecified (HCC) - TYPE 2 DIABETES MELLITUS WITH DIABETIC NEUROPATHY, UNSPECIFIED Obstructive sleep apnea (adult) (pediatric) - OBSTRUCTIVE SLEEP APNEA (ADULT) (PEDIATRIC) Gastro-esophageal reflux disease without esophagitis - GASTRO-ESOPHAGEAL REFLUX DISEASE WITHOUT ESOPHAGITIS Diaphragmatic hernia without obstruction or gangrene - DIAPHRAGMATIC HERNIA WITHOUT OBSTRUCTION OR GANGRENE Diaphragmatic hernia without mention of obstruction or gangrene Unspecified asthma, uncomplicated - UNSPECIFIED ASTHMA, UNCOMPLICATED Obesity, unspecified - OBESITY, UNSPECIFIED Body mass index (bmi) 36.0-36.9, adult - BODY MASS INDEX (BMI) 36.0-36.9, 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 (HCC) - WORKERS' COMPENSATION MAGISTRATE (CURRENT) USE OF INSULIN custodial (current) use of oral hypoglycemic drugs - [facility] (CURRENT) USE OF ORAL HYPOGLYCEMIC DRUGS Other joint terminal attack controller (current) drug therapy - OTHER WORKERS' COMPENSATION MAGISTRATE (CURRENT) DRUG THERAPY Allergy status to narcotic agent status - ALLERGY STATUS TO NARCOTIC AGENT STATUS Presence of artificial knee joint, bilateral - PRESENCE OF ARTIFICIAL KNEE JOINT, BILATERAL Personal history of nicotine dependence - PERSONAL HISTORY OF NICOTINE DEPENDENCE Family history of ischemic heart disease and other diseases of the circulatory system - FAMILY HISTORY OF ISCHEMIC HEART DISEASE AND OTHER DISEASES OF THE CIRCULATORY SYSTEM documented in this encounter Discharge Instructions * [...] during business hours, please call Marjorie at [phone] After hours concerns, please call [phone] documented in this encounter Medications at Time [...] (CMS/HCC) ??? GERD (gastroesophageal reflux disease) ??? HH [...] MD * Pre-Procedure Instructions - Milagros Garcia NP - 06/24/2020 9:18 AM CDT [facility] Clinic Location: [facility] The night before your surgery: * [...] Planning Perioperative Nursing Note Telephone Preoperative Evaluation ([facility]) - TELEPHONE ONLY, NO PHYSICAL EXAM [...] Directive: Patient does not have advance directive Communication/Training Manager Needs Communication Needs: Glasses Patient's Preferred Language: [place] Assistive Devices/DME: Dentures lower, Dentures upper, Dentures [...] in a congregate living facility (ex. assisted living/fdc facility, prison, skilled nursing)?: No Have you previously tested positive for [...] 20 seconds. Use an alcohol- based hand gym supervisor that contains at least 60% alcohol if [...] insurance card, a photo ID (like a Chalk Tester's license) and a method of payment for [...] your surgery gets rescheduled, you MUST call [phone] Wednesday-Wednesday 8am-4:30pm to get your COVID testing [...] 20 seconds. Use an alcohol- based hand gym supervisor that contains at least 60% alcohol if soap and water are not available. All visitors/patients are being asked to wear a clean mask when entering the hospital. COVID 19 Updates & Visitor Policy: Please access [email or web address] for the most updated information. Surgery Times: ??? For patients having surgery @ [facility], if your surgeon's office has not notified you of your surgery time by NOON THE BUSINESS DAY BEFORE your surgery, please call [phone] and ask for your surgeon's office Dr. [...] * POCT glucose (06/28/2020 4:22 PM CDT) [facility] Signature Glucose, POC 88 70 - 199 mg/dL [facility] Blood specimen (specimen) 06/28/2020 4:22 PM CDT 06/28/2020 4:22 PM CDT us Carlos Felix MD LAB POCT ORDERABLES - DE VICE Final Result Performing Organization Address [facility] Co de Phone Number [facility] [place] [address] * POCT glucose (06/28/2020 3:33 PM CDT) [facility] Signature Glucose, POC 108 70 - 199 mg/dL [facility] Blood specimen (specimen) 06/28/2020 3:33 PM CDT 06/28/2020 3:33 PM CDT Carlos Felix MD LAB POCT ORDERABLES - DE VICE Final Result Performing Organization Address [facility] Co de Phone Number [facility] [place] [address] * (ABNORMAL) POCT glucose (06/28/2020 2:21 PM CDT) [facility] Signature Glucose, POC 61(L) 70 - 199 mg/dL [facility] Glucose comment 1 Doctor Notified [facility] Blood specimen (specimen) 06/28/2020 2:21 PM CDT 06/28/2020 2:21 PM CDT us Carlos Felix MD LAB POCT ORDERABLES - DE VICE Final Result Performing Organization Address [facility] Co de [place] [address] * POCT glucose (06/28/2020 1:08 PM CDT) [facility] Signature Glucose, POC 113 70 - 199 mg/dL [facility] Blood specimen (specimen) 06/28/2020 1:08 PM CDT 06/28/2020 1:08 PM CDT us Carlos Felix MD LAB POCT ORDERABLES - DE VICE Final Result Performing Organization Address [facility] Co de Phone Number [facility] [place] [address] * (ABNORMAL) POCT glucose (06/28/2020 12:30 PM CDT) Glucose, POC 58(L) 70 - 199 mg/dL [facility] Glucose comment 1 RN Notified [facility] Glucose comment 2 Doctor Notified [facility] Blood specimen (specimen) 06/28/2020 12:30 PM CDT 06/28/2020 12:30 PM CDT Carlos Felix MD LAB POCT ORDERABLES - DE VICE Final Result Performing Organization Address [facility] Co de Phone Number [facility] [place] [address] documented in this encounter Visit Diagnoses Diagnosis [...] 12:53 PM CDT 30 mL/hr 30 mL/hr documented in this encounter Discontinued Medications [...] Alexander RN)1300 (New Bag - Provider: Gracia Alvarez RN) dextrose 5% infusion 50 mL/hr, intravenous, Continuous, Starting on Wed06/28/20 at 1500, Pre-Op, 200 cc bolus, then 50cc/hr 1427 (New Bag - Prov ider: Gracia Alvarez RN) Lactated Ringer's (LR) infusion 30 mL/hr, intravenous, Continuous, Starting on Wed06/28/20 at 1300 1253 (New Bag - Prov ider: Eloise Alexander RN)1509 (Rate/Dose Verify - Provider: Evin Butts CRNA)1613 (Anesthesia Volume Adjustment - Provider: Shannin L. Butts, BANNER PAINTER) Lactated Ringer's (LR) infusion 125 mL/hr, intravenous, [...] 06/28/2020 Lactated Ringer's (LR) infusion 1 0 lidocaine-EPINEPHrine (XYLOC TAMARA with EPI) 2 %-1:100,000 injection 1 06/28/2020 naloxone (NARCAN) 0.4 mg/mL injection 0.04-0.4 mg 1 06/28/2020 ondansetron (ZOFRAN) injection 4 mg 1 06/28 prochlorperazine (COMPAZINE) injection 10 mg 1 06/28/2020 sodium chloride 0.9 % irrigation 1 06/28/20 20 sodium chloride 0.9% flush 0.5-20 mL 1 06/09 tetracaine (PF) (ALTACAINE) 0.5 % ophthalmic solution 1 06/28/2020 Diet Count Last Ordered Date First Orde red Date ADULT DISCHARGE DIET 1 06/28/2020 Nursing Count Last Ordered Date First Orde red Date DISCHARGE ACTIVITY 1 06/28/2020 DISCHARGE CALL PROVIDER 2 06/28/2020 documented in this encounter Care Teams Lumber Tripper Relationship Specialty Start Date End Date Juan Retana MD [address] [facility] [address] [place] [address] PCP - General Internal Medicine 06/11/20 07/04/20 documented as of this encounter
--- NOTE | 2024-11-23 00:47 | ED_ITS ---
HPI - General Adult General Chief complaint: Extremity Injury, Lower Stated complaint: sent for Doppler US for poss DVT Time Seen by Provider: 11/10/24 00:15 Related Data Home Medications ?Medication ?Instructions ?Recorded ?Confirmed ?Last Taken ?Type albuterol sulfate 90 mcg/actuation 1 inh inhalation Q4H PRN shortness 11/19/24 11/19/24 Unknown History breath activated powder inhaler of breath or wheezing (ProAir RespiClick) aspirin 81 mg tablet,delayed 81 mg PO DAILY 11/19/24 11/19/24 11/18/24 History release (Adult Low Dose Aspirin) atorvastatin 80 mg tablet 80 mg PO QPM 11/19/24 11/19/24 11/17/24 History carvedilol 6.25 mg tablet 6.25 mg PO Q12H 11/19/24 11/19/24 11/18/24 History clindamycin HCl 300 mg capsule 300 mg PO Q6H R INNER THIGH ABCESS 11/19/24 11/19/24 11/18/24 History clopidogrel 75 mg tablet 75 mg PO DAILY 11/19/24 11/19/24 11/18/24 History duloxetine 60 mg capsule,delayed 60 mg PO DAILY 11/19/24 11/19/24 11/18/24 History release ferrous sulfate 325 mg (65 mg 325 mg PO DAILY 11/19/24 11/19/24 11/18/24 History iron) tablet (FeroSul) folic acid 1 mg tablet 1 mg PO DAILY 11/19/24 11/19/24 11/18/24 History ipratropium 0.5 mg-albuterol 3 mg 3 ml inhalation Q4H 11/19/24 11/19/24 11/18/24 History (2.5 mg base)/3 mL nebulization soln qlshul-hzybkjeu-yrobumt 2 cap PO AC 11/19/24 11/19/24 11/18/24 History 40,000-126,000-168,000 unit capsule, delay rel (Zenpep) magnesium oxide 400 mg PO DAILY 11/19/24 11/19/24 11/18/24 History metformin 750 mg tablet,extended 750 mg PO DAILY 11/19/24 11/19/24 11/18/24 History release 24 hr methocarbamol 500 mg tablet 500 mg PO Q12H PRN muscle pain 11/19/24 11/19/24 Unknown History spironolactone 25 mg tablet 25 mg PO DAILY 11/19/24 11/19/24 11/18/24 History Allergies Allergy/AdvReac Type Severity Reaction Status Date / Time tramadol AdvReac Unknown Verified 11/18/24 23:56 [facility] Past Medical History Medical History (Updated 11/22/24 @ 09:03 by Tania Harley APRN) Acute on chronic anemia Cognitive communication deficit Peripheral vascular disease GERD (gastroesophageal reflux disease) Coronary artery disease History of seizures Hypothyroidism Hyperlipidemia Type 2 diabetes mellitus History of congestive heart failure COPD (chronic obstructive pulmonary disease) Surgical History Surgical History (Updated 11/18/24 @ 16:27 by Matthew Tamayo MD) History of cholecystectomy Social History Social History Smoking status: Former smoker Tobacco type: cigarettes Alcohol intake: former Substance use: never Do You Feel Safe in your Home?: Yes Lack of Transportation: No Lack of Food: Never True Current Housing: I Do Not Have Housing Concerned About Future Housing: No Difficulty Paying Gas/Electric Bills: No Difficulty Paying for Meds: No Currently Unemployed: No Education: Decline to Answer Difficulty w/ Childcare or Family Care: No Spiritual care concerns: No Course Vital Signs Vital signs: Vital Signs Temperature 97.9 F 11/09/24 15:55 Pulse Rate 74 11/09/24 15:55 Respiratory Rate 16 11/09/24 15:55 Blood Pressure 129/79 11/09/24 15:55 Pulse Oximetry 99 11/09/24 15:55 Oxygen Delivery Room Air 11/09/24 15:55 Temperature 97.6 F 11/09/24 19:43 Pulse Rate 70 11/10/24 07:50 Respiratory Rate 16 11/10/24 07:50 Blood Pressure 148/80 H 11/10/24 07:50 Pulse Oximetry 92 11/10/24 07:50 Oxygen Delivery Room Air 11/09/24 15:55 Medical Decision Making Vital Signs Vital Signs: Vital Signs Temperature 97.9 F 11/09/24 15:55 Pulse Rate 74 11/09/24 15:55 Respiratory Rate 16 11/09/24 15:55 Blood Pressure 129/79 11/09/24 15:55 Pulse Oximetry 99 11/09/24 15:55 Oxygen Delivery Room Air 11/09/24 15:55 Temperature 97.6 F 11/09/24 19:43 Pulse Rate 70 11/10/24 07:50 Respiratory Rate 16 11/10/24 07:50 Blood Pressure 148/80 H 11/10/24 07:50 Pulse Oximetry 92 11/10/24 07:50 Oxygen Delivery Room Air 11/09/24 15:55 Lab Data 11/09/24 16:45 11/09/24 16:45 Labs: Lab Results 11/09/24 Range/Units 16:45 WBC 6.5 (4.5-10.0) K/mm3 RBC 4.71 (4.6-6.20) M/mm3 Hgb 10.8 L (14.0-18.0) g/dL Hct 35.6 L (42.0-52.0) % MCV 75.6 L (80-100) fl MCH 22.9 L (26-34) pg MCHC 30.3 L (32-36) g/dl RDW 22.6 H (11.5-14.5) % Plt Count 179 (150-375) k/mm3 MPV 9.4 (7.4-10.4) fl Immature Gran % (Auto) 0.3 (0-0.5) % Neut % (Auto) 70.6 (45.5-73.1) % Lymph % (Auto) 14.4 L (18.3-44.2) % [place] % (Auto) 11.0 H (2.6-8.5) % Eos % (Auto) 3.1 (0-4.4) % Baso % (Auto) 0.6 (0.2-1.2) % Lymph # (Auto) 0.93 (0.9-3.2) K/mm3 [place] # (Auto) 0.7 H (0.1-0.6) K/mm3 Eos # (Auto) 0.2 (0-0.3) K/mm3 Baso # (Auto) 0.0 (0.0-0.1) K/mm3 Abs Immat Gran (auto) 0.02 (0.00-0.031) K/mm3 Absolute Neuts (auto) 4.6 (1.3-6.7) K/mm3 Absolute Nucleated RBC 0.000 (0.0-0.012) K/mm3 Nucleated RBC % 0.0 (0.0-0.2) % Platelet Estimate Adequate (Adequate) Anisocytosis 1+ Ovalocytes 1+ Schistocytes None seen PT 16.8 H (11.1-14.7) Seconds INR 1.3 APTT 31.5 (22.3-36.8) Seconds Sodium 137 (137-145) mmol/L Potassium 3.6 (3.4-5.0) mmol/L Chloride 106 (98-107) mmol/L Carbon Dioxide 29 (22-30) mmol/L Anion Gap 2 L (4-12) mmol/L BUN 9 (9-20) mg/dL Creatinine 0.60 L (0.7-1.3) mg/dL Estim Creat Clear Calc 111 ml/min Estimated GFR > 60 (59 - ) Glucose 112 H (65-110) mg/dL Calcium 8.0 L (8.4-10.2) mg/dL NT-Pro-B Natriuret Pep 2660 H (19.9-100) pg/mL Discharge Plan Discharge Clinical Impression: Seroma Patient Disposition: NH Halfway/Asst Living Condition: Stable Instructions: Antibiotic Form, Seroma (DC) Additional Instructions: You were seen in the emergency department for leg pain. Your found to have 2 cysts filled with fluid. These were drained via needle aspiration. No evidence of infection at this time. The cysts may recur and become painful. Please follow-up with your primary care physician if needed. If your leg becomes red, painful or you develop fevers please return to the ED for re-evaluation. Patient Language: Bengali Prescriptions: No Action ProAir RespiClick 90 mcg/actuation aerosol powdr breath activated 1 inh INHALATION Q4H PRN (Reason: shortness of breath or wheezing) atorvastatin 80 mg tablet 80 mg PO QPM carvedilol 6.25 mg tablet 6.25 mg PO Q12H clindamycin HCl 300 mg capsule 300 mg PO Q6H Patient Comments: DOSE 16/40 clopidogrel 75 mg tablet 75 mg PO DAILY duloxetine 60 mg capsule,delayed release(DR/EC) 60 mg PO DAILY folic acid 1 mg tablet 1 mg PO DAILY ipratropium-albuterol 0.5 mg-3 mg(2.5 mg base)/3 mL solution for nebulization 3 ml INHALATION Q4H Zenpep 40,000-126,000- 168,000 unit capsule,delayed release(DR/EC) 2 cap PO AC metformin 750 mg tablet extended release 24 hr 750 mg PO DAILY methocarbamol 500 mg tablet 500 mg PO Q12H PRN (Reason: muscle pain) spironolactone 25 mg tablet 25 mg PO DAILY magnesium oxide 400 mg magnesium tablet 400 mg PO DAILY ferrous sulfate [FeroSul] 325 mg (65 mg iron) tablet 325 mg PO DAILY aspirin [Adult Low Dose Aspirin] 81 mg tablet,delayed release (DR/EC) 81 mg PO DAILY Follow-up/Referrals: PHYSICIAN,MUSEUM PREPARATOR [Primary Care Provider] -
== END 2024-11-10 07:50 ==
PROVIDERS: Physician Assistant; Emergency Provider Emergency Medicine
DX: M79.81 Nontraumatic hematoma of soft tissue (principal); K40.90 Unilateral inguinal hernia, without obstruction or gangrene, not specified as recurrent; Z95.0 Presence of cardiac pacemaker; Z96.651 Presence of right artificial knee joint; R18.8 Other ascites; Z95.1 Presence of aortocoronary bypass graft
CPT/HCPCS: 10160; 20610; 36415; 71045; 73701; 80048; 83880; 85025; 85610; 85730; 93005; 93971; 99284; J2003; Q9967

== ENCOUNTER 2024-11-18 09:27 | Inpatient (IN) | payer MEDICARE, OTHER, SELFPAY ==
--- NOTE | ~2024-11-18 | CT_ITS ---
History: Altered mental status PROCEDURE: CT head without contrast. Examination is significantly limited by motion artifact COMPARISON: None TECHNIQUE: Axial imaging of the head performed from the skull base to the vertex without IV contrast. Sagittal a nd coronal reformations obtained. DLP: 605 mGy-cm FINDINGS: The ventricles are normal in size, shape and position. There is no mass, mass effect or midline shift. There is no abnormal extra-axial fluid collection or intracranial hemorrhage. Air-fluid level within the right sphenoid sinus. Remaining paranasal sinuses are unremarkable. The mastoid air cells are well aerated. No acute displaced fractures within the overlying cranium. Impression: No acute intracranial hemorrhage or suspicious mass effect. Inflammatory sinus disease. Reviewed, dictated and finalized at location A. OAT OPERATOR Impression: No acute intracranial hemorrhage or suspicious mass effect. Inflammatory sinus disease.
--- NOTE | ~2024-11-18 | XR_ITS ---
XR chest 1V portable Ordering provider: Matthew Tamayo MD History: 74 years Male with . SOA, TRANSIENT ALTERATION OF AWARENESS . Comparison: November 09, 2024 FINDINGS: MEDIASTINUM: The cardiac silhouette is slightly enlarged. Left tripolar pacemaker. Postoperative prado ges in the mediastinum. LUNGS: No effusions or pneumothorax. Minimal opacification the left lung base. OTHER: No free air under the diaphragm. IMPRESSION: Left basilar atelectasis versus pneumonia seen medially. Reviewed, dictated and finalized at location A. OF GIRLS
--- NOTE | ~2024-11-18 | CT_ITS ---
CTA brain Ordering provider: Yasmin Juarez APRN History: . ams . Comparison: None. Technique: CT angiogram head was performed following timed intravenous injection of contrast. Thin sl ice axial images and reformatted coronal images were obtained. Three dimensional reformatted images o f the brain were also obtained using a [employer] workstation. DLP: 355 mGy-cm FINDINGS: HEAD: --ANTERIOR AND MIDDLE CEREBRAL ARTERIES AND BRANCHES: Normal caliber and contour. --INTERNAL CAROTID ARTERIES: Mild atheromatous disease but no significant stenosis. No occlusion. --BASILAR ARTERY AND BRANCHES: Normal caliber and contour. No atheromatous disease. --POSTERIOR CEREBRAL ARTERIES: Normal caliber and contour --POSTERIOR COMMUNICATING ARTERIES: Not well visualized likely related to congenital absence or small size. --ANEURYSM: None visualized. --BRAIN: Please refer to report of CT head performed the same day. --BONES AND SUPERFICIAL SOFT TISSUES: Please refer to report of CT head performed the same day. --PARANASAL SINUSES AND MASTOIDS: Please refer to report of CT head done the same day. IMPRESSION: Unremarkable CTA of the head, as detailed above Reviewed, dictated and finalized at location A. MACHINE OPERATOR
[2024-11-18 09:35] VITALS: BP 104/51; PULSE 90; RESP 16; TEMP 36.6; O2SAT 100
[2024-11-18 12:38] VITALS: BP 137/70; PULSE 79; RESP 20; O2SAT 91
[2024-11-18 12:44] VITALS: BP 151/55; PULSE 84; RESP 16; O2SAT 98
--- NOTE | 2024-11-18 12:44 | ECG_ITS ---
Test Date: 2024-11-18 13:28:55 Measurements Intervals [employer] Rate: 83 P: -51 OK: 112 QRS: -82 QRSD: 158 T: 86 QT: 449 QTc: 529 Interpretive Statements ELECTRONIC VENTRICULAR PACEMAKER ATYPICAL ECG Compared to ECG 11/09/2024 16:45:46 No significant changes Electronically Signed On 11-18-2024 17:40:55 RN BURN by Johnathan Bernal M.D.
[2024-11-18 13:37] LABS: Basophils Percent Auto 0.4 % (0.2-1.2); Eosinophils Absolute Auto 0.1 K/mm3 (0-0.3); Eosinophils Percent Auto 0.9 % (0-4.4); Hematocrit 27.6 % (42.0-52.0); Hemoglobin 8.5 g/dL (14.0-18.0); Immature Granulocyte Absolute 0.05 K/mm3 (0.00-0.031); Immature Granulocyte Percent A 0.9 % (0-0.5); Lymphocytes Absolute Auto 1.17 K/mm3 (0.9-3.2); Lymphocytes Percent Auto 20.8 % (18.3-44.2); Mean Corpuscular HGB Conc 30.8 g/dl (32-36); Mean Corpuscular Hemoglobin 23.4 pg (26-34); Mean Platelet Volume 9.5 fl (7.4-10.4); Monocytes Absolute Auto 0.5 K/mm3 (0.1-0.6); Monocytes Percent Auto 8.9 % (2.6-8.5); Neutrophils Absolute Auto 3.8 K/mm3 (1.3-6.7); Neutrophils Percent Auto 68.1 % (45.5-73.1); Platelet Count Result 135 k/mm3 (150-375); Red Blood Count 3.63 M/mm3 (4.6-6.20); Red Cell Distribution Width 23.1 % (11.5-14.5); White Blood Count 5.6 K/mm3 (4.5-10.0)
[2024-11-18 13:44] LABS: Add Urine Microscopic? YES; Appearance Urine Clear (Clear); Bacteria Urine None Seen /hpf; Bilirubin Urine 1+ (Negative); Blood Urine Negative (Negative); Color Urine Dark Yellow (Yellow); Glucose Urine UA Negative (Negative); Ketones Urine 1+ mg/dL (Negative); Leukocyte Esterase Ur Trace LEU/UL (Negative); Need Manual Microscopic Reviewed; Nitrate Urine Negative (Negative); Protein Urine 1+ mg/dL (Negative); Specific Grav Ur 1.025 (1.001-1.035); Squamous Epithelial Cell Urine None Seen /hpf (Few); Urobilinogen Urine 0.2 mg/dL (<2.0); WBC Urine 0-5 /hpf (0-3)
[2024-11-18 13:51] LABS: Alanine Aminotransferase 21 U/L (6-50); Albumin Level 2.5 g/dL (3.5-5.1); Alkaline Phosphatase 119 U/L (38-126); Anion Gap 7 mmol/L (4-12); Aspartate Amino Transferase 54 U/L (17-59); Bilirubin,Total 0.9 mg/dL (0.2-1.3); Blood Urea Nitrogen 11 mg/dL (9-20); Calcium 7.8 mg/dL (8.4-10.2); Carbon Dioxide 28 mmol/L (22-30); Chloride 102 mmol/L (98-107); Estimated CRCL calculation 118 ml/min; Estimated Glomerular Filt Rate > 60; Glucose 69 mg/dL (65-110); Potassium 3.8 mmol/L (3.4-5.0); Sodium 137 mmol/L (137-145)
[2024-11-18 13:53] LABS: INR 1.3; Prothrombin Time 16.5 Seconds (11.1-14.7)
[2024-11-18 13:54] LABS: Partial Thromboplastin Time 37.3 Seconds (22.3-36.8); Platelet Estimate Slightly Decreased (Adequate)
[2024-11-18 13:55] LABS: Anisocytosis 1+; Burr Cells 1+; Hypochromasia 1+; Ovalocytes 1+; Schistocytes None Seen; Target Cells 1+
[2024-11-18 13:58] LABS: NT Pro B Type Natriuretic Pept 4920 pg/mL (19.9-100)
--- NOTE | 2024-11-18 14:16 | PC.NURSE ---
Attempted to straight cath patient. Pt has large amount of edema to penile shaft, making it difficult to advance catheter. Pt was making lots of complaints during process, ED staff stopped and pt then stated here it comes and immediately started urinating.
[2024-11-18 15:15] VITALS: BP 111/82; PULSE 84; RESP 16; O2SAT 97
--- NOTE | 2024-11-18 15:57 | ED_ITS ---
HPI - General Adult General Chief complaint: Altered Mental Status Stated complaint: altered LOC Time Seen by Provider: 11/18/24 12:47 History of Present Illness HPI narrative: Patient is a 74-year-old male who presents ER from his care home with reports of changes in mental status. Patient has history of cognitive communication deficit as well as seizures. He is awake alert at this time. He is not complaining [place] does have some hypoxia. He reports new cough over last few days. Has no complaints of chest pain. He is unable to verbalize why he ended up in the ER. Related Data Allergies Allergy/AdvReac Type Severity Reaction Status Date / Time No Known Allergies Allergy Mild Unverified 11/28/11 18:15 Review of Systems 2 Review of Systems: ROS unobtainable: Yes unobtainable due to mental status PMFSH Past Medical History Medical History (Updated 11/18/24 @ 19:29 by Matthew Tamayo MD) Cognitive communication deficit Peripheral vascular disease GERD (gastroesophageal reflux disease) Coronary artery disease History of seizures Hypothyroidism Hyperlipidemia Type 2 diabetes mellitus History of congestive heart failure COPD (chronic obstructive pulmonary disease) Surgical History Surgical History (Updated 11/18/24 @ 16:27 by Matthew Tamayo MD) History of cholecystectomy Exam 2 Narrative: GENERAL: Well-appearing, well-nourished, and in no acute distress. HEAD: Normocephalic, atraumatic. ENT: Mucous membranes moist. CHEST: Clear to auscultation. No respiratory distress. HEART: Regular rate and rhythm. Normal peripheral pulses. ABDOMEN: Soft, nontender, nondistended. Hemoccult-positive stool. EXTREMITIES: Normal range of motion. +2 edema. Wound packing right distal thigh without evidence of infection. SKIN: Warm, dry, no rash. NEURO: Alert and oriented x3. PSYCH: Normal mood and affect. Course Course Emergency Course: During evaluation patient found to have drop in hemoglobin from previous evaluation. He is occult positive and is on Plavix. GI consulted patient will be on b.i.d. Protonix and will place him on a clear liquid diet. He has also had hypoxia on the monitor. There is evidence of volume overload with edema in the legs and elevated BNP. Chest x-ray shows concern for possible infiltrate. Will give Lasix and IV antibiotics. Vital Signs Vital signs: Vital Signs Temperature 97.9 F 11/18/24 09:35 Pulse Rate 90 11/18/24 09:35 Respiratory Rate 16 11/18/24 09:35 Blood Pressure 104/51 L 11/18/24 09:35 Pulse Oximetry 100 11/18/24 09:35 Oxygen Delivery Room Air 11/18/24 09:35 Temperature 97.9 F 11/18/24 09:35 Pulse Rate 90 11/18/24 17:36 Respiratory Rate 20 11/18/24 17:36 Blood Pressure 125/68 11/18/24 17:36 Pulse Oximetry 96 11/18/24 17:36 Oxygen Delivery Room Air 11/18/24 12:38 Medical Decision Making Vital Signs Vital Signs: Vital Signs Temperature 97.9 F 11/18/24 09:35 Pulse Rate 90 11/18/24 09:35 Respiratory Rate 16 11/18/24 09:35 Blood Pressure 104/51 L 11/18/24 09:35 Pulse Oximetry 100 11/18/24 09:35 Oxygen Delivery Room Air 11/18/24 09:35 Temperature 97.9 F 11/18/24 09:35 Pulse Rate 90 11/18/24 17:36 Respiratory Rate 20 11/18/24 17:36 Blood Pressure 125/68 11/18/24 17:36 Pulse Oximetry 96 11/18/24 17:36 Oxygen Delivery Room Air 11/18/24 12:38 Lab Data 11/18/24 13:31 11/18/24 13:31 Labs: Lab Results 11/18/24 11/18/24 Range/Units 13:31 16:52 WBC 5.6 (4.5-10.0) K/mm3 RBC 3.63 L (4.6-6.20) M/mm3 Hgb 8.5 L (14.0-18.0) g/dL Hct 27.6 L (42.0-52.0) % MCV 76.0 L (80-100) fl MCH 23.4 L (26-34) pg MCHC 30.8 L (32-36) g/dl RDW 23.1 H (11.5-14.5) % Plt Count 135 L (150-375) k/mm3 MPV 9.5 (7.4-10.4) fl Immature Gran % (Auto) 0.9 H (0-0.5) % Neut % (Auto) 68.1 (45.5-73.1) % Lymph % (Auto) 20.8 (18.3-44.2) % [place] % (Auto) 8.9 H (2.6-8.5) % Eos % (Auto) 0.9 (0-4.4) % Baso % (Auto) 0.4 (0.2-1.2) % Lymph # (Auto) 1.17 (0.9-3.2) K/mm3 [place] # (Auto) 0.5 (0.1-0.6) K/mm3 Eos # (Auto) 0.1 (0-0.3) K/mm3 Baso # (Auto) 0.0 (0.0-0.1) K/mm3 Abs Immat Gran (auto) 0.05 H (0.00-0.031) K/mm3 Absolute Neuts (auto) 3.8 (1.3-6.7) K/mm3 Absolute Nucleated RBC 0.000 (0.0-0.012) K/mm3 Nucleated RBC % 0.0 (0.0-0.2) % Platelet Estimate Slightly decreased (Adequate) Hypochromasia 1+ Anisocytosis 1+ Target Cells 1+ Ovalocytes 1+ [place] Cells 1+ Schistocytes None seen PT 16.5 H (11.1-14.7) Seconds INR 1.3 APTT 37.3 H (22.3-36.8) Seconds Sodium 137 (137-145) mmol/L Potassium 3.8 (3.4-5.0) mmol/L Chloride 102 (98-107) mmol/L Carbon Dioxide 28 (22-30) mmol/L Anion Gap 7 (4-12) mmol/L BUN 11 (9-20) mg/dL Creatinine 0.56 L (0.7-1.3) mg/dL Estim Creat Clear Calc 118 ml/min Estimated GFR > 60 (59 - ) Glucose 69 (65-110) mg/dL Calcium 7.8 L (8.4-10.2) mg/dL Total Bilirubin 0.9 (0.2-1.3) mg/dL AST 54 (17-59) U/L ALT 21 (6-50) U/L Alkaline Phosphatase 119 (38-126) U/L NT-Pro-B Natriuret Pep 4920 H (19.9-100) pg/mL Total Protein 6.0 L (6.3-8.2) g/dL Albumin 2.5 L (3.5-5.1) g/dL Urine Color Dark yellow (Yellow) Urine Appearance Clear (Clear) Urine pH 6.0 (5.0-9.0) Ur Specific [place] 1.025 (1.001-1.035) Urine Protein 1+ H (Negative) mg/dL Urine Glucose (UA) Negative (Negative) mg/dL Urine Ketones 1+ H (Negative) mg/dL Ur Blood (Man) Negative (Negative) Urine Nitrate Negative (Negative) Urine Bilirubin 1+ H (Negative) Urine Urobilinogen 0.2 (<2.0) mg/dL Add Ur Microanalysis Reviewed Leukocyte Esterase Rfl Trace H (Negative) FRANCISCA/UL Urine RBC 6-10 H (0-2) /hpf Urine WBC 0-5 (0-3) /hpf Ur Squamous Epith Cells None seen (Few) /hpf Urine Bacteria None seen /hpf Urine Casts 11-20 Blood Type O Positive Antibody Screen Negative Imaging Data Radiologist's impression: ITS Impressions Chest X-Ray 11/18/24 15:20 IMPRESSION: Left basilar atelectasis versus pneumonia seen medially. Discharge Plan Discharge Clinical Impression: Pneumonia, Occult GI bleeding, Volume overload, Hypoxia Patient Disposition: Home, Self-Care Condition: Stable
[2024-11-18 16:32] VITALS: BP 126/56; PULSE 86; RESP 20
[2024-11-18] MEDS: FUROSEMIDE INJ 40 MG/4 ML VIAL IV PUSH (16:49)
[2024-11-18] MEDS: PANTOPRAZOLE SODIUM IV 40 MG VIAL IV PUSH ×2 (16:49→21:12)
--- NOTE | 2024-11-18 17:01 | PC.NURSE ---
Per EDP Dr. Tamayo, no blood cultures needed
[2024-11-18] MEDS: AZITHROMYCIN 500 MG/NS 250 ML 500 MG/250 ML BAG 250 MG IVPB (17:23)
[2024-11-18 17:36] VITALS: BP 125/68; PULSE 90; RESP 20; O2SAT 96
--- NOTE | 2024-11-18 21:07 | ADMGEN ---
This patient, Abiel Fink, was admitted to Medical Room 349-01. Patient/family oriented to hospital policies and general routines including ID bracelet, bed and alarms, visiting hours, pain management, procedures, bathroom and other care routines, personal items, smoking policy, room service/diet, and visiting hours. Information on how to activate the Rapid Response Team has been discussed. Patient/Family are encouraged to report perceived risks to care and to ask questions if they do not understand what they are told or what they should do.
--- NOTE | 2024-11-18 21:11 | PM.IMHP ---
H&P: HPI History of Present Illness Date/Time: 11/18/24 21:11 Chief Complaint: sob Narrative: This is a 74-year-old male with past medical history significant for congestive heart failure, coronary artery disease, cognitive communication deficit, peripheral vascular disease, GERD, coronary artery disease, seizure disorder, hypothyroidism, hyperlipidemia, type 2 diabetes mellitus, COPD. Patient was brought to the emergency room for evaluation due to generalized weakness, shortness of breath. Patient is unable to provide any meaningful history contributory. Preliminary workup was significant for hemoglobin of 8.5, hematocrit 27 MCV 76 brain natriuretic peptide of 4900. Patient has been admitted for further evaluation management and treatment. XR chest 1V portable Ordering provider: Matthew Tamayo MD History: 74 years Male with . SOA, TRANSIENT ALTERATION OF AWARENESS . Comparison: November 09, 2024 FINDINGS: MEDIASTINUM: The cardiac silhouette is slightly enlarged. Left tripolar pacemaker. Postoperative changes in the mediastinum. LUNGS: No effusions or pneumothorax. Minimal opacification the left lung base. OTHER: No free air under the diaphragm. IMPRESSION: Left basilar atelectasis versus pneumonia seen medially. Review of Systems Review of Systems: ROS unobtainable: Yes other (Patient can not really contribute in a meaningful way) [facility] Past Medical History Medical History (Updated 11/19/24 @ 01:55 by Mukund Grajeda MD) Cognitive communication deficit Peripheral vascular disease GERD (gastroesophageal reflux disease) Coronary artery disease History of seizures Hypothyroidism Hyperlipidemia Type 2 diabetes mellitus History of congestive heart failure COPD (chronic obstructive pulmonary disease) Surgical History Surgical History (Updated 11/18/24 @ 16:27 by Matthew Tamayo MD) History of cholecystectomy Social History Social History Smoking status: Former smoker Tobacco type: cigarettes Alcohol intake: former Substance use: never Do You Feel Safe in your Home?: Yes Lack of Transportation: No Lack of Food: Never True Current Housing: I Do Not Have Housing Concerned About Future Housing: No Difficulty Paying Gas/Electric Bills: No Difficulty Paying for Meds: No Currently Unemployed: No Education: Decline to Answer Difficulty w/ Childcare or Family Care: No Spiritual care concerns: No Meds Home Medications and Allergies Allergies Allergy/AdvReac Type Severity Reaction Status Date / Time tramadol AdvReac Unknown Verified 11/18/24 23:56 Vital Signs Vital Signs - 24 hr 11/18/24 09:35 11/18/24 12:38 11/18/24 12:38 Temperature 97.9 F Pulse Rate 90 79 Respiratory Rate 16 20 Blood Pressure 104/51 L 137/70 Pulse Oximetry 100 91 91 Oxygen Delivery Room Air Room Air 11/18/24 12:44 11/18/24 15:15 11/18/24 16:32 Temperature Pulse Rate 84 84 86 Respiratory Rate 16 16 20 Blood Pressure 151/55 H 111/82 126/56 L Pulse Oximetry 98 97 Oxygen Delivery 11/18/24 17:36 Temperature Pulse Rate 90 Respiratory Rate 20 Blood Pressure 125/68 Pulse Oximetry 96 Oxygen Delivery Exam Narrative: Laying in a stretcher Const: General: comfortable, no acute distress, well developed, alert, awake, ill appearing chronically and average body habitus Nutritional Appearance: average body habitus Orientation/consciousness: oriented to person Other: Generalized pallor HENMT: Head: normal to inspection, normocephalic and atraumatic Ears: hearing grossly normal bilaterally Face/Nose/Sinus: normal facial exam Face and sinus: normal facial exam Eyes: General: appearance normal, both eyes and all related structures Pupils: Equal, round and reactive pupils present EOM: EOMs intact bilaterally Neck: Neck: full ROM, no lymphadenopathy and no JVD Thyroid: thyroid normal Lymphatic: no lymphadenopathy noted Resp: Effort & Inspection: normal respiratory effort and able to speak in complete sentences Auscultation: clear to auscultation bilaterally Cardio: Jugular venous distension: no JVD Rate: regular rate Rhythm: regular rhythm Heart sounds: S1 normal heart sound present and S2 normal heart sound present GI: GI Palp: Yes Soft to palpation and Yes No hepatosplenomegaly present : General: Yes deferred Skin: Rashes: no rashes Wounds: no wounds Neuro: General: patient oriented x3 and CN's II-XI intact bilaterally Cranial nerves: Yes CN's II-XII intact bilaterally and Yes Equal, round and reactive pupils present Cognition (Neuro): normal cognition Speech: Abnormal speech present Details: expressive aphasia Gait exam (Neuro): Unable to assess gait Motor exam (neuro): 5/5 motor strength present throughout Extrem: General: normal to inspection, full ROM, no joint enlargement and no pedal edema H&P: Results Labs Labs: Short CBC 11/18/24 Range/Units 13:31 WBC 5.6 (4.5-10.0) K/mm3 Hgb 8.5 L (14.0-18.0) g/dL Hct 27.6 L (42.0-52.0) % Plt Count 135 L (150-375) k/mm3 BMP 11/18/24 13:31 Sodium 137 Potassium 3.8 Chloride 102 Carbon Dioxide 28 BUN 11 Creatinine 0.56 L Glucose 69 Calcium 7.8 L Liver Function 11/18/24 Range/Units 13:31 Total Bilirubin 0.9 (0.2-1.3) mg/dL AST 54 (17-59) U/L ALT 21 (6-50) U/L Alkaline Phosphatase 119 (38-126) U/L Albumin 2.5 L (3.5-5.1) g/dL Urine 11/18/24 Range/Units 13:31 Urine Color Dark yellow (Yellow) Urine Appearance Clear (Clear) Urine pH 6.0 (5.0-9.0) Ur Specific [place] 1.025 (1.001-1.035) Urine Protein 1+ H (Negative) mg/dL Urine Glucose (UA) Negative (Negative) mg/dL Assessment and Plan Assessment and plan (1) Pneumonia: Code(s): J18.9 - Pneumonia, unspecified organism Status: Acute Assessment and Plan: Patient has been started on Rocephin and Zithromax Cultures in progress (2) Occult GI bleeding: Code(s): R19.5 - Other fecal abnormalities Status: Acute Assessment and Plan: Continue to monitor (3) Peripheral vascular disease: Code(s): I73.9 - Peripheral vascular disease, unspecified Status: Acute Assessment and Plan: Unchanged (4) Coronary artery disease: Code(s): I25.10 - Atherosclerotic heart disease of [place] coronary artery without angina pectoris Status: Acute Assessment and Plan: Chest pain-free (5) Acute on chronic diastolic CHF (congestive heart failure): Code(s): I50.33 - Acute on chronic diastolic (congestive) heart failure Status: Acute Assessment and Plan: Likely secondary to anemia Hospitalist MIPS Advance Care Plan I have confirmed that the patient's Advanced Care Plan is present, code status is documented, or surrogate decision maker is listed in patient medical record.: Yes Medication Reconciliation I have utilized all available resources to obtain, update and review the patients current medications (includes all prescriptions, OTC, herbals, cannabis, and nutritional supplements).: Yes
--- NOTE | 2024-11-18 21:18 | PC.NURSE ---
Report from ED given. This nurse questioned a blood sugar of 69 documented at approximately 1331. No intervention was provided to patient in ED. Patient currently admitted to floor with blood sugar of 55 with no hypoglycemic protocol in order. Apple juice provided to patient and physician notified.
[2024-11-18] MEDS: DEXTROSE 50% 25 GM/50 ML SYRINGE IV PUSH (21:30)
[2024-11-19] VITALS (12 sets, daily range): BP systolic 100–131; BP diastolic 67–84; PULSE 68–90; RESP 16–20; TEMP 36.1–36.5; O2SAT 90–99; BMI 24.1
[2024-11-19 02:21] LABS: Glucose Point of Care 114 mg/dl (65-105)
[2024-11-19 02:21] LABS: Glucose Point of Care 55 mg/dl (65-105)
[2024-11-19 08:47] LABS: Glucose Point of Care 78 mg/dl (65-105)
--- NOTE | 2024-11-19 08:50 | PM.IMPN ---
Progress Note: A&P Assessment and Plan (1) Pneumonia: Code(s): J18.9 - Pneumonia, unspecified organism Status: Acute Assessment and Plan: Patient has been started on Rocephin and Zithromax-continue Cultures in progress monitor resp status IS (2) Occult GI bleeding: Code(s): R19.5 - Other fecal abnormalities Status: Acute Assessment and Plan: no active s/o bleeidng Continue to monitor (3) Peripheral vascular disease: Code(s): I73.9 - Peripheral vascular disease, unspecified Status: Acute Assessment and Plan: Unchanged (4) Coronary artery disease: Code(s): I25.10 - Atherosclerotic heart disease of [place] coronary artery without angina pectoris Status: Acute Assessment and Plan: Chest pain-free (5) Acute on chronic diastolic CHF (congestive heart failure): Code(s): I50.33 - Acute on chronic diastolic (congestive) heart failure Status: Acute Assessment and Plan: Likely secondary to anemia (6) Type 2 diabetes mellitus: Code(s): E11.9 - Type 2 diabetes mellitus without complications Status: Acute Assessment and Plan: on home metformin holding for now as noted hypoglycemia last night (7) Altered mental status: Code(s): R41.82 - Altered mental status, unspecified Status: Acute Assessment and Plan: typically able to take meds at [facility] and even though somewhat confused, he is calm and cooperative per RN report this am, he is confused and anxious, refusing to take meds and food, pulling on cords and lines - will order head CT and add ativan to help with anxiety prior to scan to r/u any acute neurological issues -imporved around [address] anyway Time Spent With Patient Time with patient: Greater than 35 minutes Subjective Date/time seen: 11/19/24 08:50 Interval history: Narrative retrieved from H/P: This is a 74-year-old male with past medical history significant for congestive heart failure, coronary artery disease, cognitive communication deficit, peripheral vascular disease, GERD, coronary artery disease, seizure disorder, hypothyroidism, hyperlipidemia, type 2 diabetes mellitus, COPD. Patient was brought to the emergency room for evaluation due to generalized weakness, shortness of breath. Patient is unable to provide any meaningful history contributory. Preliminary workup was significant for hemoglobin of 8.5, hematocrit 27 MCV 76 brain natriuretic peptide of 4900. Patient has been admitted for further evaluation management and treatment. Chest xray: IMPRESSION: Left basilar atelectasis versus pneumonia seen medially. 11/19- pt is seen and examined. He was very confused this am per RN report but after a nap woke up clam and a lot more alert. CT head is ordered. he was calm and able to answer simple questions. Review of Systems Review of Systems: ROS unobtainable: Yes other (unable to obtain any information) Neurologic: Reports Abnormal speech present Exam Narrative: Laying in a stretcher Const: General: comfortable, no acute distress, well developed, alert, awake, ill appearing chronically and average body habitus Nutritional Appearance: average body habitus Orientation/consciousness: oriented to person Other: Generalized pallor HENMT: Head: normal to inspection, normocephalic and atraumatic Ears: hearing grossly normal bilaterally Face/Nose/Sinus: normal facial exam Face and sinus: normal facial exam Eyes: General: appearance normal, both eyes and all related structures Pupils: Equal, round and reactive pupils present EOM: EOMs intact bilaterally Neck: Neck: full ROM, no lymphadenopathy and no JVD Thyroid: thyroid normal Lymphatic: no lymphadenopathy noted Resp: Effort & Inspection: normal respiratory effort and able to speak in complete sentences Auscultation: clear to auscultation bilaterally Cardio: Jugular venous distension: no JVD Rate: regular rate Rhythm: regular rhythm Heart sounds: S1 normal heart sound present and S2 normal heart sound present : General: Yes deferred Skin: Rashes: no rashes Wounds: no wounds Neuro: General: oriented to person, patient oriented x3, CN's II-XI intact bilaterally and Unable to assess gait Cranial nerves: Yes CN's II-XII intact bilaterally and Yes Equal, round and reactive pupils present Cognition (Neuro): normal cognition Speech: normal speech and Abnormal speech present Details: expressive aphasia Gait exam (Neuro): Normal gait present and Unable to assess gait Motor exam (neuro): 5/5 motor strength present throughout Extrem: General: normal to inspection, full ROM, no joint enlargement and no pedal edema Objective Data Vital Signs Vital Signs: Vital Signs - 24 hr 11/18/24 09:35 11/18/24 12:38 11/18/24 12:38 Temperature 97.9 F Pulse Rate 90 79 Respiratory Rate 16 20 Blood Pressure 104/51 L 137/70 Pulse Oximetry 100 91 91 Oxygen Delivery Room Air Room Air Oxygen Flow Rate 11/18/24 12:44 11/18/24 15:15 11/18/24 16:32 Temperature Pulse Rate 84 84 86 Respiratory Rate 16 16 20 Blood Pressure 151/55 H 111/82 126/56 L Pulse Oximetry 98 97 Oxygen Delivery Oxygen Flow Rate 11/18/24 17:36 11/19/24 00:00 11/19/24 00:13 Temperature 96.9 F L Pulse Rate 90 90 71 Respiratory Rate 20 18 Blood Pressure 125/68 106/67 Pulse Oximetry 96 96 Oxygen Delivery Oxygen Flow Rate 11/19/24 00:26 11/19/24 04:00 11/19/24 06:00 Temperature 97.6 F Pulse Rate 88 85 Respiratory Rate 18 Blood Pressure 131/72 Pulse Oximetry 95 99 Oxygen Delivery Nasal Cannula Oxygen Flow Rate 2 Intake/Output Intake/Output: Intake & Output 11/16/24 11/17/24 11/18/24 11/19/24 23:59 23:59 23:59 23:59 Intake Total 300 Output Total 0 300 Balance 300 -300 Meds/Results Medications: Active Medications Generic Name Dose Route Start Last Admin Trade Name Freq PRN Reason Stop Dose Admin Ceftriaxone Sodium 1 gm in 50 mls @ 100 mls/hr 11/19/24 17:00 Rocephin 1 Gm/Ns 50 Ml IVPB Q24H HILDA Azithromycin 500 mg in 250 mls @ 250 mls/hr 11/19/24 17:00 Zithromax IVPB Q24H HILDA Ondansetron HCl 4 mg 11/18/24 15:59 Ondansetron Inj 4 Mg/2 Ml Vial IV PUSH Q4H PRN Nausea Pantoprazole Sodium 40 mg 11/18/24 21:00 11/18/24 21:12 Pantoprazole Sodium Iv 40 Mg Vial IV PUSH 40 mg Q12HR HILDA Administration Radiology Results: ITS Impressions Chest X-Ray 11/18/24 15:20 IMPRESSION: Left basilar atelectasis versus pneumonia seen medially. Labs Labs: Laboratory Results - last 24 hr 11/18/24 11/18/24 11/18/24 13:31 16:52 21:15 WBC 5.6 RBC 3.63 L Hgb 8.5 L Hct 27.6 L MCV 76.0 L MCH 23.4 L MCHC 30.8 L RDW 23.1 H Plt Count 135 L MPV 9.5 Immature Gran % (Auto) 0.9 H Neut % (Auto) 68.1 Lymph % (Auto) 20.8 [place] % (Auto) 8.9 H Eos % (Auto) 0.9 Baso % (Auto) 0.4 Lymph # (Auto) 1.17 [place] # (Auto) 0.5 Eos # (Auto) 0.1 Baso # (Auto) 0.0 Abs Immat Gran (auto) 0.05 H Absolute Neuts (auto) 3.8 Absolute Nucleated RBC 0.000 Nucleated RBC % 0.0 Platelet Estimate Slightly decreased Hypochromasia 1+ Anisocytosis 1+ Target Cells 1+ Ovalocytes 1+ Kandice Cells 1+ Schistocytes None seen PT 16.5 H INR 1.3 APTT 37.3 H Sodium 137 Potassium 3.8 Chloride 102 Carbon Dioxide 28 Anion Gap 7 BUN 11 Creatinine 0.56 L Estim Creat Clear Calc 118 Estimated GFR > 60 Glucose 69 POC Capillary Glucose 55 L* Calcium 7.8 L Total Bilirubin 0.9 AST 54 ALT 21 Alkaline Phosphatase 119 NT-Pro-B Natriuret Pep 4920 H Total Protein 6.0 L Albumin 2.5 L Urine Color Dark yellow Urine Appearance Clear Urine pH 6.0 Ur Specific [place] 1.025 Urine Protein 1+ H Urine Glucose (UA) Negative Urine Ketones 1+ H Ur Blood (Man) Negative Urine Nitrate Negative Urine Bilirubin 1+ H Urine Urobilinogen 0.2 Add Ur Microanalysis Reviewed Leukocyte Esterase Rfl Trace H Urine RBC 6-10 H Urine WBC 0-5 Ur Squamous Epith Cells None seen Urine Bacteria None seen Urine Casts 11-20 Blood Type O Positive Antibody Screen Negative 11/18/24 11/19/24 22:32 08:44 WBC RBC Hgb Hct MCV MCH MCHC RDW Plt Count MPV Immature Gran % (Auto) Neut % (Auto) Lymph % (Auto) [place] % (Auto) Eos % (Auto) Baso % (Auto) Lymph # (Auto) [place] # (Auto) Eos # (Auto) Baso # (Auto) Abs Immat Gran (auto) Absolute Neuts (auto) Absolute Nucleated RBC Nucleated RBC % Platelet Estimate Hypochromasia Anisocytosis Target Cells Ovalocytes [place] Cells Schistocytes PT INR APTT Sodium Potassium Chloride Carbon Dioxide Anion Gap BUN Creatinine Estim Creat Clear Calc Estimated GFR Glucose POC Capillary Glucose 114 H 78 Calcium Total Bilirubin AST ALT Alkaline Phosphatase NT-Pro-B Natriuret Pep Total Protein Albumin Urine Color Urine Appearance Urine pH Ur Specific [place] Urine Protein Urine Glucose (UA) Urine Ketones Ur Blood (Man) Urine Nitrate Urine Bilirubin Urine Urobilinogen Add Ur Microanalysis Leukocyte Esterase Rfl Urine RBC Urine WBC Ur Squamous Epith Cells Urine Bacteria Urine Casts Blood Type Antibody Screen
--- NOTE | 2024-11-19 09:59 | PC.NURSE ---
Patient is refusing all medications, food or fluids at 0900. second attempt made at 0945. Patient is resisting care, pushing staff away when trying to feed him, throwing his pillow on the floor and pulling equipment off (telemetry and pure wick). Hospitalist notified at 1000.
[2024-11-19] MEDS: MAGNESIUM OXIDE 400 MG TABLET PO (11:42)
[2024-11-19] MEDS: SPIRONOLACTONE 25 MG TABLET PO (11:42)
[2024-11-19] MEDS: carvediloL 6.25 MG TABLET PO ×2 (11:42→20:59)
[2024-11-19] MEDS: CLOPIDOGREL BISULFATE 75 MG TABLET PO (11:43)
[2024-11-19] MEDS: FERROUS SULFATE 325 MG TABLET DR PO (11:43)
[2024-11-19] MEDS: DULoxetine HCL 60 MG CAPSULE.DR PO (11:43)
[2024-11-19] MEDS: FOLIC ACID 1 MG TABLET PO (11:43)
[2024-11-19] MEDS: ASPIRIN 81 MG ENTERIC TABLET PO (11:43)
[2024-11-19] MEDS: PANTOPRAZOLE SODIUM IV 40 MG VIAL IV PUSH ×2 (11:44→20:59)
[2024-11-19 12:21] LABS: Glucose Point of Care 62 mg/dl (65-105)
[2024-11-19 14:20] LABS: Glucose Point of Care 93 mg/dl (65-105)
--- NOTE | 2024-11-19 14:30 | WPDGICN ---
Assessment and Plan Assessment and plan (1) Occult GI bleeding: Code(s): R19.5 - Other fecal abnormalities Status: Acute Assessment and Plan: he is here with pneumonia, noted rales/wheezing and also exacerbation CHF no overt gib and high risk for EGD, I will recommend medical treatment and conservative treatment if obvious gib with drop in h/h then will reassess if may need more urgent EGD (2) Acute on chronic anemia: Code(s): D64.9 - Anemia, unspecified Status: Acute (3) Acute on chronic diastolic CHF (congestive heart failure): Code(s): I50.33 - Acute on chronic diastolic (congestive) heart failure Status: Acute Assessment and Plan: on treatment (4) Altered mental status: Code(s): R41.82 - Altered mental status, unspecified Status: Acute (5) Pneumonia: Code(s): J18.9 - Pneumonia, unspecified organism Status: Acute Assessment and Plan: by primary GI Consult Note Consult date/time: 11/19/24 14:30 Reason for consult: occult blood stool HPI: Abiel Fink is a 74 year old male with past medical history significant for congestive heart failure, coronary artery disease, cognitive communication deficit, peripheral vascular disease, coronary artery disease on plavix, seizure disorder, type 2 diabetes mellitus, COPD. He was brought to the emergency room for evaluation due to generalized weakness, shortness of breath and unable to get history from him. ER workup was significant for hemoglobin of 8.5 (10.5 previously), brain natriuretic peptide of 4900. Also noted + FOBT but no gross melena. CXR with pneumonia, also admitted with CHF exacerbation. Review of Systems Review of Systems: ROS unobtainable: Yes unobtainable due to mental status [facility] Past Medical History Medical History (Updated 11/19/24 @ 14:35 by Theo Douglas MD) Acute on chronic anemia Cognitive communication deficit Peripheral vascular disease GERD (gastroesophageal reflux disease) Coronary artery disease History of seizures Hypothyroidism Hyperlipidemia Type 2 diabetes mellitus History of congestive heart failure COPD (chronic obstructive pulmonary disease) Surgical History Surgical History (Updated 11/18/24 @ 16:27 by Matthew Tamayo MD) History of cholecystectomy Social History Social History Smoking status: Former smoker Tobacco type: cigarettes Alcohol intake: former Substance use: never Do You Feel Safe in your Home?: Yes Lack of Transportation: No Lack of Food: Never True Current Housing: I Do Not Have Housing Concerned About Future Housing: No Difficulty Paying Gas/Electric Bills: No Difficulty Paying for Meds: No Currently Unemployed: No Education: Decline to Answer Difficulty w/ Childcare or Family Care: No Spiritual care concerns: No Meds Home Medications and Allergies Home Medications ?Medication ?Instructions ?Recorded ?Confirmed ?Type albuterol sulfate 90 mcg/actuation 1 inh inhalation Q4H PRN shortness 11/19/24 11/19/24 History breath activated powder inhaler of breath or wheezing (ProAir RespiClick) aspirin 81 mg tablet,delayed 81 mg PO DAILY 11/19/24 11/19/24 History release (Adult Low Dose Aspirin) atorvastatin 80 mg tablet 80 mg PO QPM 11/19/24 11/19/24 History carvedilol 6.25 mg tablet 6.25 mg PO Q12H 11/19/24 11/19/24 History clindamycin HCl 300 mg capsule 300 mg PO Q6H R INNER THIGH ABCESS 11/19/24 11/19/24 History clopidogrel 75 mg tablet 75 mg PO DAILY 11/19/24 11/19/24 History duloxetine 60 mg capsule,delayed 60 mg PO DAILY 11/19/24 11/19/24 History release ferrous sulfate 325 mg (65 mg 325 mg PO DAILY 11/19/24 11/19/24 History iron) tablet (FeroSul) folic acid 1 mg tablet 1 mg PO DAILY 11/19/24 11/19/24 History ipratropium 0.5 mg-albuterol 3 mg 3 ml inhalation Q4H 11/19/24 11/19/24 History (2.5 mg base)/3 mL nebulization soln gedkwv-nyuzzlau-cuzfvna 2 cap PO AC 11/19/24 11/19/24 History 40,000-126,000-168,000 unit capsule, delay rel (Zenpep) magnesium oxide 400 mg PO DAILY 11/19/24 11/19/24 History metformin 750 mg tablet,extended 750 mg PO DAILY 11/19/24 11/19/24 History release 24 hr methocarbamol 500 mg tablet 500 mg PO Q12H PRN muscle pain 11/19/24 11/19/24 History spironolactone 25 mg tablet 25 mg PO DAILY 11/19/24 11/19/24 History Allergies Allergy/AdvReac Type Severity Reaction Status Date / Time tramadol AdvReac Unknown Verified 11/18/24 23:56 Vital Signs Vital Signs - 24 hr 11/18/24 15:15 11/18/24 16:32 11/18/24 17:36 Temperature Pulse Rate 84 86 90 Respiratory Rate 16 20 20 Blood Pressure 111/82 126/56 L 125/68 Pulse Oximetry 97 96 Oxygen Delivery Oxygen Flow Rate 11/19/24 00:00 11/19/24 00:13 11/19/24 00:26 Temperature 96.9 F L Pulse Rate 90 71 Respiratory Rate 18 Blood Pressure 106/67 Pulse Oximetry 96 95 Oxygen Delivery Nasal Cannula Oxygen Flow Rate 2 11/19/24 04:00 11/19/24 06:00 11/19/24 08:00 Temperature 97.6 F Pulse Rate 88 85 83 Respiratory Rate 18 Blood Pressure 131/72 Pulse Oximetry 99 Oxygen Delivery Oxygen Flow Rate 11/19/24 11:42 11/19/24 12:00 Temperature Pulse Rate 80 83 Respiratory Rate Blood Pressure Pulse Oximetry Oxygen Delivery Oxygen Flow Rate Exam Const: General: comfortable, no acute distress, alert, awake and ill appearing chronically Orientation/consciousness: oriented to person Other: Generalized pallor HENMT: Head: normocephalic Eyes: General: appearance normal, both eyes and all related structures Neck: Neck: full ROM Resp: Auscultation: rales and wheezes Cardio: Rate: regular rate Rhythm: regular rhythm GI: GI Palp: Yes Soft to palpation and No Tenderness to palpation present (GI) Auscultation: normal bowel sounds Skin: Rashes: no rashes Neuro: Speech: Abnormal speech present Details: expressive aphasia Extrem: General: normal to inspection Psych: Attitude: not belligerent Results Labs 11/18/24 13:31 11/18/24 13:31
[2024-11-19] MEDS: AZITHROMYCIN 500 MG/NS 250 ML 500 MG/250 ML BAG 250 MG IVPB (16:32)
[2024-11-19 17:03] LABS: Glucose Point of Care 87 mg/dl (65-105)
[2024-11-19] MEDS: ATORVASTATIN 40 MG TABLET 80 MG PO (17:52)
[2024-11-20] VITALS (15 sets, daily range): BP systolic 112–114; BP diastolic 58–84; PULSE 65–82; RESP 18–113; TEMP 35.6–36.3; O2SAT 94–100
--- NOTE | 2024-11-20 | ECHO_ITS ---
Patient Info Name: Abiel Fink Age: 74 years : 1950 Gender: Male Ht: 60 in Wt: 123 lbs BSA: 1.55 m2 HR: 73 bpm BP: 114 / 84 mmHg Technical Quality: Fair Exam Date: 11/20/2024 1:15 PM Exam Location: Echo Lab Patient Status: Inpatient Admit Date: 11/18/2024 Staff Ordering Physician: Mala Mansfield Sizing Sprayer: Litzy Alcantar RDCS Attending Provider: Mala Mansfield Referring Physician: Donal RODRIGUEZ; Exam Type: CA echo doppler color flow Study Info Indications - HEART FAILURE EXACERBATION Complete two-dimensional, color flow and Doppler transthoracic echocardiogram is performed. Summary 1. Complete two-dimensional, color flow and Doppler transthoracic echocardiogram is performed. 2. Left ventricular systolic function is normal, estimated at 40-45%. 3. Left ventricular septal wall motion is abnormal with septal motion related to pacing. 4. Linear artifact in right ventricle suggestive of catheter(s), pacemaker lead(s), or ICD lead(s). 5. Right ventricular chamber dimension is mildly enlarged. 6. Right ventricular systolic function is normal. 7. There is mild aortic valve calcification. 8. There is mild mitral valve regurgitation. 9. There is mild tricuspid valve regurgitation. 10. Mild pulmonary hypertension, estimated pulmonary arterial systolic pressure is 38 mmHg. Left Ventricle Left ventricular chamber dimension is normal. Left ventricular systolic function is normal, estimated at 40-45%. There is no increased left ventricular wall thickness. Left ventricular septal wall motion is abnormal with septal motion related to pacing. The left ventricular diastolic function is abnormal. Right Ventricle Right ventricular chamber dimension is mildly enlarged. Right ventricular systolic function is normal. Linear artifact in right ventricle suggestive of catheter(s), pacemaker lead(s), or ICD lead(s). Left Atria Left atrial chamber dimension is normal. Right Atria Right atrial chamber dimension is normal. Atrial Septum Intact interatrial septum visualized by color flow imaging. Aortic Valve The aortic valve is trileaflet. There is no aortic valve sclerosis. There is no aortic valve stenosis. There is no aortic valve regurgitation. There is mild aortic valve calcification. Pulmonic Valve The pulmonic valve is normal. There is no pulmonic valve stenosis. There is no pulmonic regurgitation. Mitral Valve The mitral valve has normal leaflets. There is no mitral valve stenosis. There is mild mitral valve regurgitation. Tricuspid Valve The tricuspid valve leaflets are normal. There is no significant tricuspid valve stenosis. There is mild tricuspid valve regurgitation. Mild pulmonary hypertension, estimated pulmonary arterial systolic pressure is 38 mmHg. Pericardium/Pleural The pericardium appears normal. There is no pericardial effusion. Inferior Vena Cava Normal inferior vena cava with >50% collapse upon inspiration consistent with Empty right atrial pressure, 5 mmHg. Aorta The aortic root size at the sinus of Valsalva is normal. The prox ascending aorta size is normal. Left Ventricular Outflow Tract Name Value Normal LVOT 2D LVOT Diameter 1.9 cm LVOT Doppler LVOT Peak Gradient 8 mmHg LVOT Mean Gradient 4 mmHg LVOT VTI 25 cm LVOT VTI/AV VTI Ratio 0.8 LVOT Stroke Volume 73 ml LVOT CO 5.3 l/min LVOT CI 3.4 l/min/m2 Pulmonic Valve Name Value Normal RVOT Doppler RVOT Peak Gradient 2 mmHg PV Doppler PV Peak Gradient 6 mmHg Mitral Valve Name Value Normal MV Doppler MV Decel [place] 484 cm/s2 MV PHT 47 ms MV Area (PHT) 4.6 cm2 4.0-5.0 MV Regurgitation Doppler MR Peak Gradient 100 mmHg MV Diastolic Function MV E Peak Velocity 79 cm/s MV A Peak Velocity 78 cm/s MV E/A 1.0 MV Decel Time 163 ms Tricuspid Valve Name Value Normal TV Regurgitation Doppler TR Peak Velocity 289 cm/s TR Peak Gradient 33 mmHg Estimated PAP/RSVP RA Pressure 5 mmHg <=5 PA Systolic Pressure 38 mmHg <36 RV Systolic Pressure 38 mmHg <36 Aorta Name Value Normal Ascending Aorta Ao Root Diameter (MM) 3.3 cm Ao Root Diam Index (MM) 2.1 cm/m2 Aortic Valve Name Value Normal AV Doppler AV Peak Velocity 173 cm/s AV Peak Gradient 12 mmHg AV Mean Gradient 6 mmHg AV VTI 30 cm AV Area (Cont Eq VTI) 2.5 cm2 >=3.0 AV Area (Cont Eq Didier) 2.4 cm2 AV Regurgitation 2D LVOT Area 2.9 cm2 Ventricles Name Value Normal LV Dimensions 2D/MM IVS Diastolic Thickness (2D) 0.9 cm 0.6-1.0 IVS Diastole Thickness (MM) 1.0 cm 0.6-1.0 LVID Diastole (2D) 4.4 cm 4.2-5.8 LVID Diastole (MM) 6.2 cm 4.2-5.8 LVIW Diastolic Thickness (2D) 1.1 cm 0.6-1.0 LVIW Diastolic Thickness (MM) 0.8 cm 0.6-1.0 LVID Systole (2D) 3.4 cm 2.5-4.0 LVID Systole (MM) 4.8 cm 2.5-4.0 LVOT Diameter 1.9 cm LV Mass (2D Cubed) 151.14 g 88.00-224.00 LV Mass Index (2D Cubed) 98 g/m2 49-115 Relative Wall Thickness (2D) 0.52 LV Mass (MM Cubed) 233.63 g 88.00-224.00 LV Mass Index (MM Cubed) 151 g/m2 49-115 Relative Wall Thickness (MM) 0.27 LV Fractional Shortening/Ejection Fraction 2D/MM LV Fractional Shortening (2D) 21 % 25-43 LV Fractional Shortening (MM) 23 % 25-43 LV EF (MM Teicholz) 45 % 52-72 LV EF (2D Teicholz) 43 % 52-72 LV Diastolic Volume (4C MOD) 100 ml LV EF (4C MOD) 51 % LV Diastolic Volume (2C MOD) 73 ml LV EF (2C MOD) 36 % LV Diastolic Volume (BP MOD) 85 ml 62-150 LV Diastolic Volume Index (BP MOD) 55 ml/m2 34-74 LV Systolic Volume (BP MOD) 50 ml 21-61 LV Systolic Volume Index (BP MOD) 33 ml/m2 11-31 LV EF (BP MOD) 41 % 52-72 LV Diastolic Length (4C) 8.9 cm LV Systolic Length (4C) 7.6 cm LV Stroke Volume (4C MOD) 51 ml Atria Name Value Normal LA Dimensions LA Dimension (MM) 4.2 cm 3.0-4.1 LA Volume (4C A-L) 66 ml LA Volume (BP A-L) 69 ml RA Dimensions RA Area (4C) 15.5 cm2 <=18.0 Report Signatures
[2024-11-20 00:45] LABS: Glucose Point of Care 87 mg/dl (65-105)
[2024-11-20 07:42] LABS: Glucose Point of Care 95 mg/dl (65-105)
[2024-11-20 08:28] LABS: Basophils Percent Auto 0.9 % (0.2-1.2); Eosinophils Absolute Auto 0.1 K/mm3 (0-0.3); Eosinophils Percent Auto 2.9 % (0-4.4); Hematocrit 25.7 % (42.0-52.0); Hemoglobin 7.8 g/dL (14.0-18.0); Immature Granulocyte Absolute 0.08 K/mm3 (0.00-0.031); Immature Granulocyte Percent A 2.3 % (0-0.5); Lymphocytes Absolute Auto 0.92 K/mm3 (0.9-3.2); Lymphocytes Percent Auto 26.5 % (18.3-44.2); Mean Corpuscular HGB Conc 30.4 g/dl (32-36); Mean Corpuscular Hemoglobin 23.7 pg (26-34); Mean Corpuscular Volume 78.1 fl (80-100); Mean Platelet Volume 8.6 fl (7.4-10.4); Monocytes Absolute Auto 0.3 K/mm3 (0.1-0.6); Monocytes Percent Auto 8.9 % (2.6-8.5); Neutrophils Percent Auto 58.5 % (45.5-73.1); Platelet Count Result 111 k/mm3 (150-375); Red Blood Count 3.29 M/mm3 (4.6-6.20); Red Cell Distribution Width 23.6 % (11.5-14.5); White Blood Count 3.5 K/mm3 (4.5-10.0)
[2024-11-20] MEDS: carvediloL 6.25 MG TABLET PO ×2 (08:37→21:00)
[2024-11-20] MEDS: MAGNESIUM OXIDE 400 MG TABLET PO (08:37)
[2024-11-20] MEDS: CLOPIDOGREL BISULFATE 75 MG TABLET PO (08:37)
[2024-11-20] MEDS: SPIRONOLACTONE 25 MG TABLET PO (08:37)
[2024-11-20] MEDS: FOLIC ACID 1 MG TABLET PO (08:37)
[2024-11-20] MEDS: PANTOPRAZOLE SODIUM IV 40 MG VIAL IV PUSH ×2 (08:37→21:01)
[2024-11-20] MEDS: FERROUS SULFATE 325 MG TABLET DR PO (08:37)
[2024-11-20 08:38] LABS: Alanine Aminotransferase 19 U/L (6-50); Albumin Level 2.2 g/dL (3.5-5.1); Alkaline Phosphatase 100 U/L (38-126); Anion Gap 0 mmol/L (4-12); Aspartate Amino Transferase 42 U/L (17-59); Bilirubin,Total 0.6 mg/dL (0.2-1.3); Blood Urea Nitrogen 11 mg/dL (9-20); Calcium 7.4 mg/dL (8.4-10.2); Carbon Dioxide 31 mmol/L (22-30); Chloride 107 mmol/L (98-107); Estimated CRCL calculation 71 ml/min; Estimated Glomerular Filt Rate > 60; Glucose 87 mg/dL (65-110); Magnesium 1.4 mg/dL (1.6-2.3); Potassium 3.5 mmol/L (3.4-5.0); Sodium 138 mmol/L (137-145)
[2024-11-20] MEDS: ASPIRIN 81 MG ENTERIC TABLET PO (08:38)
[2024-11-20] MEDS: DULoxetine HCL 60 MG CAPSULE.DR PO (08:38)
[2024-11-20] MEDS: HYDROcodone/acetaminophen (*CRX) 5-325 MG TABLET 1 TAB PO (08:39)
[2024-11-20 09:56] LABS: Anisocytosis 2+; Hypochromasia 2+; Ovalocytes 1+; Platelet Estimate Decreased (Adequate); Schistocytes None Seen
--- NOTE | 2024-11-20 10:56 | P.PNIM_ITS ---
Progress Note: A&P Assessment and Plan (1) Pneumonia: Code(s): J18.9 - Pneumonia, unspecified organism Status: Acute Assessment and Plan: Patient has been started on Rocephin and Zithromax-continue Cultures in progress monitor resp status IS 11/20/24: * Continue IV abx of Rocephin and Azithromycin. * Follow cultures. Negative thus far. * Trend labs and VS. * Add Duoneb Q6 hrs caren and PRN Albuterol. (2) Occult GI bleeding: Code(s): R19.5 - Other fecal abnormalities Status: Acute Assessment and Plan: no active s/o bleeidng Continue to monitor 11/20/24: * Continue to monitor for any acute s/s of bleeding. * GI Following. * Avoid emperic anticoagulation at this time. * Trend labs, especially Hgb. There is a drop today from 8.5-->7.8. * Consider transfusion below 7.0. * Daily ASA and plavix placed on hold as pt is trending downward with his Hgb. * Continue Protonix IV (3) Peripheral vascular disease: Code(s): I73.9 - Peripheral vascular disease, unspecified Status: Chronic Assessment and Plan: Unchanged 11/20/24: * Suspect partially cause of multiple wounds note to BLE. * Monitor for healing of wounds. * Wound care nurse has been consulted. * Check all pedal and posterior tibial pulses Qshift. * Follow all instructions for wound care daily. (4) Coronary artery disease: Code(s): I25.10 - Atherosclerotic heart disease of [place] coronary artery without angina pectoris Status: Chronic Assessment and Plan: Chest pain-free 11/20/24: * Continue Telemetry. * Holding ASA and Plavix in setting of possible GI Bleed. (5) Acute on chronic diastolic CHF (congestive heart failure): Code(s): I50.33 - Acute on chronic diastolic (congestive) heart failure Status: Acute Assessment and Plan: Likely secondary to anemia 11/20/24: * No notable ECHO on file for pt found. * ECHO ordered. * Pt does appear to be in fluid overload. * Lasix 40 mg IVP BID ordered. * Daily weights and accurate I&O are also ordered. (6) Type 2 diabetes mellitus: Code(s): E11.9 - Type 2 diabetes mellitus without complications Status: Chronic Assessment and Plan: on home metformin holding for now as noted hypoglycemia last night 11/20/24: * Holding home dose of Metformin. * Pt now more alert, oriented and eating more, suspect that will cause his hypoglycemic episodes to rebound. * He is started on low dose SSI if needed * Diabetic diet that is soft and bite sized * Hypoglycemic protocol * Glucose checks AC and HS and PRN. * Fasting glucose this AM is 87. (7) Altered mental status: Code(s): R41.82 - Altered mental status, unspecified Status: Acute Assessment and Plan: typically able to take meds at alf and even though somewhat confused, he is calm and cooperative per RN report this am, he is confused and anxious, refusing to take meds and food, pulling on cords and lines - will order head CT and add ativan to help with anxiety prior to scan to r/u any acute neurological issues -imporved around [address] anyway 11/20/24: * This appears to wax and wane. Etiology encephalopathy from current infection? vs. known cognitive deficit and seizure disorder. * Pt appears to be returned to his baseline at this time, cooperative, conversing and without any Neurological deficits. * CT/CTA head were negative for any acute abnormalities. Time Spent With Patient Time with patient: 25 - 35 minutes Subjective Date/time seen: 11/20/24 0915 Interval history: This 74 year old male pt was examined at the bedside today in interval assessment since being admitted to the hospital on 11/18 being treated for PNA and GI bleeding concerns. GI recommends monitoring for now and will reassess, and it is noted that pt's Hgb has decreased from 8.5-->7.8 today. GI on the case. In addition, he is receiving Rocephin and Azithromycin for his PNA. There is concern for possible fluid overload by GI's note, and this correlates with my physical assessment as pt is noted to have swelling to BLE, have coarse rales and rhonchi audible in the lungs. Lasix is initiated and ECHO is ordered. According to floor nurse, his glucose has been on the lower side, in the 50s but no formal glucose checks have been ordered. He has been confused since admission and at times combative with normal CT/CTA Brain. UA is unremarkable for possible infection. He became suddenly alert and oriented this AM answering all questions correctly. He tells me that he lives at [facility] in , has been W/C bound for approximately one month because he finds it difficult to move his legs and he notes he fell out of the W/C approximately 1 week ago during the people there trying to transfer him to the bed and he scraped the lateral side of his left leg. He also has wounds noted to the right leg that are draining. He denies any acute complaints or concerns otherwise right now. Review of Systems Review of Systems: All systems reviewed & are unremarkable except as noted in HPI and below Exam Narrative: CONSTITUTIONAL: Obese, male pt, elderly appearing, chronically ill appearing lying supine at this time. HEENT: Head is grossly atraumatic and normocephalic. No lesions or bruising noted. MMM, patent oropharynx EYES: PERRLS, EOMs intact and no icterus noted. RESPIRATORY: Coarse rales and rhonchi noted throughout all kim. CARDIAC: RRR, S1 and S2 present without S3, S4, m,r,g,h GI: Soft, NT, BS present x4 quads. Edema to the BLE. SKIN: LLE w/large scabbed over abrasion. Surrounding skin is intact and without s/s of infection. No drainage. RLE with abrasion to 3rd toe. No s/s of acute infection. Left first toe with eschar. No s/s of infection acutely. Right first toe with black eschar as well. Right medial thigh wound is site of previous abscess previously opened at another facility. Tunneling present. Packing orders placed by wound as well as management of all other orders. Buttocks iwth yeast maceration bilaterally without any open areas. NEURO: At baseline. Currently A&Ox3, but is my understanding that this waxes and wanes. EXTREMITIES: Decreased AROM. Pt W/C at baseline but only for one month. PT/OT consulted. PSYCH: Appropriate attitude, affect and mood. Objective Data Vital Signs Vital Signs: Vital Signs - 24 hr 11/19/24 11:42 11/19/24 12:00 11/19/24 14:05 Temperature 97.7 F Pulse Rate 80 83 80 Respiratory Rate 20 Blood Pressure 100/68 Pulse Oximetry 90 11/19/24 16:00 11/19/24 20:00 11/19/24 22:00 Temperature 97.0 F L Pulse Rate 78 78 68 Respiratory Rate 16 Blood Pressure 118/84 Pulse Oximetry 94 11/20/24 00:00 11/20/24 04:00 11/20/24 06:00 Temperature 97.0 F L Pulse Rate 82 77 77 Respiratory Rate 18 Blood Pressure 114/84 Pulse Oximetry 98 11/20/24 08:37 Temperature Pulse Rate 76 Respiratory Rate Blood Pressure Pulse Oximetry Intake/Output Intake/Output: Intake & Output 11/17/24 11/18/24 11/19/24 11/20/24 23:59 23:59 23:59 23:59 Intake Total 300 400 200 Output Total 0 540 Balance 300 -140 200 Meds/Results Medications: Active Medications Generic Name Dose Route Start Last Admin Trade Name Freq PRN Reason Stop Dose Admin Hydrocodone Bitart/Acetaminophen 1 tab 11/20/24 08:26 11/20/24 08:39 Hydrocodone/Acetaminophen (*Crx) 5-325 Mg Tablet PO 1 tab Q6H PRN Administration Pain Rated 4-6 Aspirin 81 mg 11/19/24 09:00 11/20/24 08:38 Aspirin 81 Mg Enteric Tablet PO 81 mg DAILY CAREN Administration Atorvastatin Calcium 80 mg 11/19/24 18:00 11/19/24 17:52 Atorvastatin 40 Mg Tablet PO 80 mg QPM CAREN Administration Carvedilol 6.25 mg 11/19/24 09:00 11/20/24 08:37 Carvedilol 6.25 Mg Tablet PO 6.25 mg Q12HR CAREN Administration Clopidogrel Bisulfate 75 mg 11/19/24 09:00 11/20/24 08:37 Clopidogrel Bisulfate 75 Mg Tablet PO 75 mg DAILY CAREN Administration Dextrose 12.5 gm 11/20/24 10:53 Dextrose 50% 25 Gm/50 Ml Syringe IV PUSH PRN PRN Hypoglycemia Protocol Duloxetine HCl 60 mg 11/19/24 09:00 11/20/24 08:38 Duloxetine Hcl 60 Mg Capsule.Dr PO 60 mg DAILY CAREN Administration Ferrous Sulfate 325 mg 11/19/24 09:00 11/20/24 08:37 Ferrous Sulfate [address] PO 325 mg DAILY CAREN Administration Folic Acid 1 mg 11/19/24 09:00 11/20/24 08:37 Folic Acid 1 Mg Tablet PO 1 mg DAILY CAREN Administration Furosemide 40 mg 11/20/24 17:00 Furosemide Inj 40 Mg/4 Ml Vial IV PUSH BID CAREN Glucagon 1 mg 11/20/24 10:53 Glucagon For Inj 1 Mg Vial IM PRN PRN Hypoglycemia Protocol Glucose 15 gm 11/20/24 10:53 Glucose Oral Gel 15 Gm Of Glucse In 37.5 Gm Tube PO PRN PRN Hypoglycemia Protocol Ceftriaxone Sodium 1 gm in 50 mls @ 100 mls/hr 11/19/24 17:00 11/19/24 16:33 Rocephin 1 Gm/Ns 50 Ml IVPB 100 mls/hr Q24H CAREN Administration Azithromycin 500 mg in 250 mls @ 250 mls/hr 11/19/24 17:00 11/19/24 16:32 Zithromax IVPB 250 mls/hr Q24H CAREN Administration Dextrose 1,000 mls @ 100 mls/hr 11/20/24 10:53 Dextrose 5% 1,000 Ml IVPB PRN PRN Hypoglycemia Protocol Insulin Aspart 2 - 5 units 11/20/24 12:00 Insulin Aspart (*Bkc) 100 Units/Ml SUB-Q TIDWM CAREN Protocol Magnesium Oxide 400 mg 11/19/24 09:00 11/20/24 08:37 Magnesium Oxide 400 Mg Tablet PO 400 mg DAILY CAREN Administration Miscellaneous Information 1 each 11/19/24 00:01 Zenpep Nonformulary. Can Patient Use Home Supply? XX 12/19/24 00:00 CLARIFY CAREN Non-Formulary Medication 2 cap 11/19/24 11:30 Glscbn-Igntsmbc-Ebyjzmf [Zenpep] PO 12/19/24 11:29 AC CAREN Ondansetron HCl 4 mg 11/18/24 15:59 Ondansetron Inj 4 Mg/2 Ml Vial IV PUSH Q4H PRN Nausea Pantoprazole Sodium 40 mg 11/18/24 21:00 11/20/24 08:37 Pantoprazole Sodium Iv 40 Mg Vial IV PUSH 40 mg Q12HR CAREN Administration Perflutren Lipid Microsphere 0 ml 11/20/24 08:01 Perflutren Lipid Microspheres 1.5 Ml Vial Diluted To 10 Ml Total Volume IV PUSH 11/23/24 08:01 ONCE PRN adequate visualization Protocol Spironolactone 25 mg 11/19/24 09:00 11/20/24 08:37 Spironolactone 25 Mg Tablet PO 25 mg DAILY CAREN Administration Radiology Results: ITS Impressions Chest X-Ray 11/18/24 15:20 IMPRESSION: Left basilar atelectasis versus pneumonia seen medially. Head CT 11/19/24 15:41 Impression: No acute intracranial hemorrhage or suspicious mass effect. Inflammatory sinus disease. CT Brain Angiography 11/19/24 16:03 IMPRESSION: Unremarkable CTA of the head, as detailed above Labs Labs: Laboratory Results - last 24 hr 11/19/24 11/19/24 11/19/24 12:10 14:14 16:59 WBC RBC Hgb Hct MCV MCH MCHC RDW Plt Count MPV Immature Gran % (Auto) Neut % (Auto) Lymph % (Auto) [place] % (Auto) Eos % (Auto) Baso % (Auto) Lymph # (Auto) [place] # (Auto) Eos # (Auto) Baso # (Auto) Abs Immat Gran (auto) Absolute Neuts (auto) Absolute Nucleated RBC Nucleated RBC % Platelet Estimate Hypochromasia Anisocytosis Ovalocytes Schistocytes Sodium Potassium Chloride Carbon Dioxide Anion Gap BUN Creatinine Estim Creat Clear Calc Estimated GFR Glucose POC Capillary Glucose 62 L 93 87 Calcium Magnesium Total Bilirubin AST ALT Alkaline Phosphatase Total Protein Albumin 11/19/24 11/20/24 11/20/24 22:46 07:38 08:23 WBC 3.5 L RBC 3.29 L Hgb 7.8 L Hct 25.7 L MCV 78.1 L MCH 23.7 L MCHC 30.4 L RDW 23.6 H Plt Count 111 L MPV 8.6 Immature Gran % (Auto) 2.3 H Neut % (Auto) 58.5 Lymph % (Auto) 26.5 [place] % (Auto) 8.9 H Eos % (Auto) 2.9 Baso % (Auto) 0.9 Lymph # (Auto) 0.92 [place] # (Auto) 0.3 Eos # (Auto) 0.1 Baso # (Auto) 0.0 Abs Immat Gran (auto) 0.08 H Absolute Neuts (auto) 2.0 Absolute Nucleated RBC 0.000 Nucleated RBC % 0.0 Platelet Estimate Decreased Hypochromasia 2+ Anisocytosis 2+ Ovalocytes 1+ Schistocytes None seen Sodium 138 Potassium 3.5 Chloride 107 Carbon Dioxide 31 H Anion Gap 0 L BUN 11 Creatinine 0.56 L Estim Creat Clear Calc 71 Estimated GFR > 60 Glucose 87 POC Capillary Glucose 87 95 Calcium 7.4 L Magnesium 1.4 L Total Bilirubin 0.6 AST 42 ALT 19 Alkaline Phosphatase 100 Total Protein 5.0 L Albumin 2.2 L Quality VTE Prophylaxis VTE prophylaxis: mechanical ordered (Unable to order secondary to open wounds on legs) and pharmacologic ordered (Unable to order as pt appears to have a GI bleed) If No VTE Prophylaxis Answer both mechanical and pharmacologic: Reason no mechanical VTE proph: medical contraindication Reason no pharmacologic proph: medical contraindication
[2024-11-20 11:51] LABS: Glucose Point of Care 142 mg/dl (65-105)
[2024-11-20 11:52] LABS: Hemoglobin A1C 5.1 % (<5.7)
[2024-11-20] MEDS: IPRATROPIUM 0.5 MG/ALBUTEROL SULFATE 2.5 MG AMPUL.NEB 3 ML INHALATION ×2 (14:32→19:46)
--- NOTE | 2024-11-20 16:11 | WPDGIPROGNO ---
Progress Note: A&P Assessment and Plan (1) Occult GI bleeding: Code(s): R19.5 - Other fecal abnormalities Status: Acute Assessment and Plan: denies overt gib given pneumonia and chf will just monitor no need of urgent scope unless obvious bleeding (2) Acute on chronic diastolic CHF (congestive heart failure): Code(s): I50.33 - Acute on chronic diastolic (congestive) heart failure Status: Acute Assessment and Plan: on treatment (3) Acute on chronic anemia: Code(s): D64.9 - Anemia, unspecified Status: Acute (4) Pneumonia: Code(s): J18.9 - Pneumonia, unspecified organism Status: Acute (5) Coronary artery disease: Code(s): I25.10 - Atherosclerotic heart disease of [place] coronary artery without angina pectoris Status: Chronic (6) Volume overload: Code(s): E87.70 - Fluid overload, unspecified Status: Acute Subjective Date/time seen: 11/20/24 16:11 Interval history: still with SBO but he is comfortable talking with his phone denies gib Review of Systems Review of Systems: All systems reviewed & are unremarkable except as noted in HPI and below Exam Const: General: comfortable, no acute distress, alert, awake and ill appearing chronically Other: Generalized pallor HENMT: Head: normocephalic Eyes: General: appearance normal, both eyes and all related structures Neck: Neck: full ROM Resp: Auscultation: rales and wheezes Cardio: Rate: regular rate Rhythm: regular rhythm GI: GI Palp: Yes Soft to palpation and No Tenderness to palpation present (GI) Auscultation: normal bowel sounds Skin: Rashes: no rashes Neuro: Other: awake and alert today, talking, pleasant Extrem: Other: trace pedal edema Psych: Attitude: not belligerent Objective Data Vital Signs Vital Signs: Vital Signs - 24 hr 11/19/24 20:00 11/19/24 22:00 11/20/24 00:00 Temperature 97.0 F L Pulse Rate 78 68 82 Respiratory Rate 16 Blood Pressure 118/84 Pulse Oximetry 94 Oxygen Delivery Oxygen Flow Rate 11/20/24 04:00 11/20/24 06:00 11/20/24 08:37 Temperature 97.0 F L Pulse Rate 77 77 76 Respiratory Rate 18 Blood Pressure 114/84 Pulse Oximetry 98 Oxygen Delivery Oxygen Flow Rate 11/20/24 14:00 11/20/24 14:36 11/20/24 14:36 Temperature 96.1 F L Pulse Rate 76 77 Respiratory Rate 113 H 20 Blood Pressure 113/71 Pulse Oximetry 98 94 Oxygen Delivery Room Air Oxygen Flow Rate 11/20/24 14:42 11/20/24 15:01 Temperature Pulse Rate 71 Respiratory Rate 20 Blood Pressure Pulse Oximetry Oxygen Delivery Nasal Cannula Oxygen Flow Rate 2 Intake/Output Intake/Output: Intake & Output 11/17/24 11/18/24 11/19/24 11/20/24 23:59 23:59 23:59 23:59 Intake Total 300 400 440 Output Total 0 540 Balance 300 -140 440 Meds/Results Medications: Active Medications Generic Name Dose Route Start Last Admin Trade Name Freq PRN Reason Stop Dose Admin Hydrocodone Bitart/Acetaminophen 1 tab 11/20/24 08:26 11/20/24 08:39 Hydrocodone/Acetaminophen (*Crx) 5-325 Mg Tablet PO 1 tab Q6H PRN Administration Pain Rated 4-6 Albuterol 2.5 mg 11/20/24 11:24 Albuterol Sulfate Neb 2.5 Mg/3 Ml Inh INHALATION Q4HRT PRN Wheezing Albuterol/Ipratropium 3 ml 11/20/24 14:00 11/20/24 14:32 Ipratropium 0.5 Mg/Albuterol Sulfate 2.5 Mg Ampul.Neb 3 Ml INHALATION 3 ml Q6HRT HILDA Administration Aspirin 81 mg 11/19/24 09:00 11/20/24 08:38 Aspirin 81 Mg Enteric Tablet PO 81 mg DAILY HILDA Administration Atorvastatin Calcium 80 mg 11/19/24 18:00 11/19/24 17:52 Atorvastatin 40 Mg Tablet PO 80 mg QPM HILDA Administration Carvedilol 6.25 mg 11/19/24 09:00 11/20/24 08:37 Carvedilol 6.25 Mg Tablet PO 6.25 mg Q12HR HILDA Administration Clopidogrel Bisulfate 75 mg 11/19/24 09:00 11/20/24 08:37 Clopidogrel Bisulfate 75 Mg Tablet PO 75 mg DAILY HILDA Administration Dextrose 12.5 gm 11/20/24 10:53 Dextrose 50% 25 Gm/50 Ml Syringe IV PUSH PRN PRN Hypoglycemia Protocol Duloxetine HCl 60 mg 11/19/24 09:00 11/20/24 08:38 Duloxetine Hcl 60 Mg Capsule.Dr PO 60 mg DAILY HILDA Administration Ferrous Sulfate 325 mg 11/19/24 09:00 11/20/24 08:37 Ferrous Sulfate [address] PO 325 mg DAILY HILDA Administration Folic Acid 1 mg 11/19/24 09:00 11/20/24 08:37 Folic Acid 1 Mg Tablet PO 1 mg DAILY HILDA Administration Furosemide 40 mg 11/20/24 17:00 Furosemide Inj 40 Mg/4 Ml Vial IV PUSH BID HILDA Glucagon 1 mg 11/20/24 10:53 Glucagon For Inj 1 Mg Vial IM PRN PRN Hypoglycemia Protocol Glucose 15 gm 11/20/24 10:53 Glucose Oral Gel 15 Gm Of Glucse In 37.5 Gm Tube PO PRN PRN Hypoglycemia Protocol Ceftriaxone Sodium 1 gm in 50 mls @ 100 mls/hr 11/19/24 17:00 11/19/24 16:33 Rocephin 1 Gm/Ns 50 Ml IVPB 100 mls/hr Q24H HILDA Administration Azithromycin 500 mg in 250 mls @ 250 mls/hr 11/19/24 17:00 11/19/24 16:32 Zithromax IVPB 250 mls/hr Q24H HILDA Administration Dextrose 1,000 mls @ 100 mls/hr 11/20/24 10:53 Dextrose 5% 1,000 Ml IVPB PRN PRN Hypoglycemia Protocol Insulin Aspart 2 - 5 units 11/20/24 12:00 11/20/24 13:29 Insulin Aspart (*Bkc) 100 Units/Ml SUB-Q Not Given TIDWM HILDA Protocol Magnesium Oxide 400 mg 11/19/24 09:00 11/20/24 08:37 Magnesium Oxide 400 Mg Tablet PO 400 mg DAILY HILDA Administration Miscellaneous Information 1 each 11/19/24 00:01 Zenpep Nonformulary. Can Patient Use Home Supply? XX 12/19/24 00:00 CLARIFY HILDA Non-Formulary Medication 2 cap 11/19/24 11:30 Tnqaer-Unzrrnoj-Zmbnffe [Zenpep] PO 12/19/24 11:29 AC HILDA Ondansetron HCl 4 mg 11/18/24 15:59 Ondansetron Inj 4 Mg/2 Ml Vial IV PUSH Q4H PRN Nausea Pantoprazole Sodium 40 mg 11/18/24 21:00 11/20/24 08:37 Pantoprazole Sodium Iv 40 Mg Vial IV PUSH 40 mg Q12HR HILDA Administration Perflutren Lipid Microsphere 0 ml 11/20/24 08:01 Perflutren Lipid Microspheres 1.5 Ml Vial Diluted To 10 Ml Total Volume IV PUSH 11/23/24 08:01 ONCE PRN adequate visualization Protocol Spironolactone 25 mg 11/19/24 09:00 11/20/24 08:37 Spironolactone 25 Mg Tablet PO 25 mg DAILY HILDA Administration Radiology Results: ITS Impressions Chest X-Ray 11/18/24 15:20 IMPRESSION: Left basilar atelectasis versus pneumonia seen medially. Head CT 11/19/24 15:41 Impression: No acute intracranial hemorrhage or suspicious mass effect. Inflammatory sinus disease. CT Brain Angiography 11/19/24 16:03 IMPRESSION: Unremarkable CTA of the head, as detailed above Labs Labs: Laboratory Results - last 24 hr 11/19/24 11/19/24 11/20/24 16:59 22:46 07:38 WBC RBC Hgb Hct MCV MCH MCHC RDW Plt Count MPV Immature Gran % (Auto) Neut % (Auto) Lymph % (Auto) [place] % (Auto) Eos % (Auto) Baso % (Auto) Lymph # (Auto) [place] # (Auto) Eos # (Auto) Baso # (Auto) Abs Immat Gran (auto) Absolute Neuts (auto) Absolute Nucleated RBC Nucleated RBC % Platelet Estimate Hypochromasia Anisocytosis Ovalocytes Schistocytes Sodium Potassium Chloride Carbon Dioxide Anion Gap BUN Creatinine Estim Creat Clear Calc Estimated GFR Glucose POC Capillary Glucose 87 87 95 Hemoglobin A1c Calcium Magnesium Total Bilirubin AST ALT Alkaline Phosphatase Total Protein Albumin 11/20/24 11/20/24 11/20/24 08:19 08:23 11:49 WBC 3.5 L RBC 3.29 L Hgb 7.8 L Hct 25.7 L MCV 78.1 L MCH 23.7 L MCHC 30.4 L RDW 23.6 H Plt Count 111 L MPV 8.6 Immature Gran % (Auto) 2.3 H Neut % (Auto) 58.5 Lymph % (Auto) 26.5 [place] % (Auto) 8.9 H Eos % (Auto) 2.9 Baso % (Auto) 0.9 Lymph # (Auto) 0.92 [place] # (Auto) 0.3 Eos # (Auto) 0.1 Baso # (Auto) 0.0 Abs Immat Gran (auto) 0.08 H Absolute Neuts (auto) 2.0 Absolute Nucleated RBC 0.000 Nucleated RBC % 0.0 Platelet Estimate Decreased Hypochromasia 2+ Anisocytosis 2+ Ovalocytes 1+ Schistocytes None seen Sodium 138 Potassium 3.5 Chloride 107 Carbon Dioxide 31 H Anion Gap 0 L BUN 11 Creatinine 0.56 L Estim Creat Clear Calc 71 Estimated GFR > 60 Glucose 87 POC Capillary Glucose 142 H Hemoglobin A1c 5.1 Calcium 7.4 L Magnesium 1.4 L Total Bilirubin 0.6 AST 42 ALT 19 Alkaline Phosphatase 100 Total Protein 5.0 L Albumin 2.2 L
[2024-11-20] MEDS: AZITHROMYCIN 500 MG/NS 250 ML 500 MG/250 ML BAG 250 MG IVPB (17:14)
[2024-11-20] MEDS: FUROSEMIDE INJ 40 MG/4 ML VIAL IV PUSH (17:15)
[2024-11-20] MEDS: ATORVASTATIN 40 MG TABLET 80 MG PO (17:15)
[2024-11-20 17:50] LABS: Glucose Point of Care 104 mg/dl (65-105)
[2024-11-21] VITALS (15 sets, daily range): BP systolic 101–126; BP diastolic 66–71; PULSE 53–77; RESP 16–23; TEMP 36.4–36.8; O2SAT 92–98
[2024-11-21 06:22] LABS: Basophils Percent Auto 0.6 % (0.2-1.2); Eosinophils Absolute Auto 0.2 K/mm3 (0-0.3); Eosinophils Percent Auto 4.7 % (0-4.4); Hematocrit 25.6 % (42.0-52.0); Hemoglobin 7.7 g/dL (14.0-18.0); Immature Granulocyte Absolute 0.04 K/mm3 (0.00-0.031); Immature Granulocyte Percent A 1.3 % (0-0.5); Lymphocytes Percent Auto 28.1 % (18.3-44.2); Mean Corpuscular HGB Conc 30.1 g/dl (32-36); Mean Corpuscular Hemoglobin 23.1 pg (26-34); Mean Corpuscular Volume 76.9 fl (80-100); Mean Platelet Volume 8.9 fl (7.4-10.4); Monocytes Absolute Auto 0.3 K/mm3 (0.1-0.6); Monocytes Percent Auto 9.7 % (2.6-8.5); Neutrophils Absolute Auto 1.8 K/mm3 (1.3-6.7); Neutrophils Percent Auto 55.6 % (45.5-73.1); Platelet Count Result 115 k/mm3 (150-375); Red Blood Count 3.33 M/mm3 (4.6-6.20); Red Cell Distribution Width 23.1 % (11.5-14.5); White Blood Count 3.2 K/mm3 (4.5-10.0)
[2024-11-21 06:28] LABS: Glucose Point of Care 111 mg/dl (65-105)
[2024-11-21 06:43] LABS: Alanine Aminotransferase 17 U/L (6-50); Alkaline Phosphatase 96 U/L (38-126); Anion Gap 2 mmol/L (4-12); Aspartate Amino Transferase 34 U/L (17-59); Bilirubin,Total 0.5 mg/dL (0.2-1.3); Blood Urea Nitrogen 10 mg/dL (9-20); Calcium 6.9 mg/dL (8.4-10.2); Carbon Dioxide 30 mmol/L (22-30); Chloride 105 mmol/L (98-107); Estimated CRCL calculation 75 ml/min; Estimated Glomerular Filt Rate > 60; Glucose 101 mg/dL (65-110); Sodium 137 mmol/L (137-145)
[2024-11-21 06:50] LABS: Anisocytosis 2+; Hypochromasia 2+; Ovalocytes 1+; Platelet Estimate Adequate (Adequate); Tear Drop Cells 1+
[2024-11-21 06:51] LABS: Crenated RBC 1+; Schistocytes None Seen
[2024-11-21] MEDS: SPIRONOLACTONE 25 MG TABLET PO (09:01)
[2024-11-21] MEDS: FUROSEMIDE INJ 40 MG/4 ML VIAL IV PUSH ×2 (09:01→17:59)
[2024-11-21] MEDS: MAGNESIUM OXIDE 400 MG TABLET PO (09:01)
[2024-11-21] MEDS: FOLIC ACID 1 MG TABLET PO (09:01)
[2024-11-21] MEDS: FERROUS SULFATE 325 MG TABLET DR PO (09:01)
[2024-11-21] MEDS: PANTOPRAZOLE SODIUM IV 40 MG VIAL IV PUSH ×2 (09:01→20:45)
[2024-11-21] MEDS: DULoxetine HCL 60 MG CAPSULE.DR PO (09:01)
[2024-11-21] MEDS: carvediloL 6.25 MG TABLET PO ×2 (09:01→20:45)
[2024-11-21] MEDS: IPRATROPIUM 0.5 MG/ALBUTEROL SULFATE 2.5 MG AMPUL.NEB 3 ML INHALATION ×3 (09:18→19:48)
--- NOTE | 2024-11-21 09:51 | P.PNIM_ITS ---
Progress Note: A&P Assessment and Plan (1) Pneumonia: Code(s): J18.9 - Pneumonia, unspecified organism Status: Acute Assessment and Plan: * Continue IV abx of Rocephin and Azithromycin. * Follow cultures. Negative thus far. * Trend labs and VS. * Add Duoneb Q6 hrs caren and PRN Albuterol. (2) Occult GI bleeding: Code(s): R19.5 - Other fecal abnormalities Status: Acute Assessment and Plan: no active s/o bleeidng * Continue to monitor for any acute s/s of bleeding. * GI Following. * Avoid emperic anticoagulation at this time. * Trend labs, especially Hgb. There is a drop today from 8.5-->7.8. * Consider transfusion below 7.0. * Daily ASA and plavix placed on hold as pt is trending downward with his Hgb. * Continue Protonix IV (3) Peripheral vascular disease: Code(s): I73.9 - Peripheral vascular disease, unspecified Status: Chronic Assessment and Plan: * Suspect partially cause of multiple wounds note to BLE. * Monitor for healing of wounds. * Wound care nurse has been consulted. * Check all pedal and posterior tibial pulses Qshift. * Follow all instructions for wound care daily. (4) Coronary artery disease: Code(s): I25.10 - Atherosclerotic heart disease of [place] coronary artery without angina pectoris Status: Chronic Assessment and Plan: Chest pain-free * Continue Telemetry. * Holding ASA and Plavix in setting of possible GI Bleed. (5) Acute on chronic diastolic CHF (congestive heart failure): Code(s): I50.33 - Acute on chronic diastolic (congestive) heart failure Status: Acute Assessment and Plan: * No notable ECHO on file for pt found. * ECHO EF 40-45% with pulmonary hypertension * Pt does appear to be in fluid overload. * Lasix 40 mg IVP BID ordered. * Daily weights and accurate I&O are also ordered. (6) Type 2 diabetes mellitus: Code(s): E11.9 - Type 2 diabetes mellitus without complications Status: Chronic Assessment and Plan: * Holding home dose of Metformin. * Pt now more alert, oriented and eating more, suspect that will cause his hypoglycemic episodes to rebound. * He is started on low dose SSI if needed * Diabetic diet that is soft and bite sized * Hypoglycemic protocol * Glucose checks AC and HS and PRN. * Fasting glucose this AM is 87. (7) Altered mental status: Code(s): R41.82 - Altered mental status, unspecified Status: Acute Assessment and Plan: typically able to take meds at care home and even though somewhat confused, he is calm and cooperative * This appears to wax and wane. Etiology encephalopathy from current infection? vs. known cognitive deficit and seizure disorder. * Pt appears to be returned to his baseline at this time, cooperative, conversing and without any Neurological deficits. * CT/CTA head were negative for any acute abnormalities. (8) Hypokalemia: Code(s): E87.6 - Hypokalemia Status: Acute Assessment and Plan: replete as needed daily BMP Time Spent With Patient Time with patient: Greater than 35 minutes Subjective Date/time seen: 11/21/24 09:51 Interval history: 74-year-old male with past medical history significant for congestive heart failure, coronary artery disease, cognitive communication deficit, peripheral vascular disease, GERD, coronary artery disease, seizure disorder, hypothyroidism, hyperlipidemia, type 2 diabetes mellitus, COPD presents with weakness and shortness of breath. Leukopenia of 3.2, anemia 7.7, potassium 3.0, calcium 6.9, malnutrition protein 5.0, albumin 2.0 Review of Systems Review of Systems: All systems reviewed & are unremarkable except as noted in HPI and below Exam Narrative: CONSTITUTIONAL: Obese, male pt, elderly appearing, chronically ill appearing lying supine at this time. pale HEENT: Head is grossly atraumatic and normocephalic. No lesions or bruising noted. MMM, patent oropharynx EYES: PERRLS, EOMs intact and no icterus noted. RESPIRATORY: Coarse rales and rhonchi noted throughout all kim. CARDIAC: RRR, S1 and S2 present without S3, S4, m,r,g,h GI: Soft, NT, BS present x4 quads. Edema to the BLE. SKIN: LLE w/large scabbed over abrasion. Surrounding skin is intact and without s/s of infection. No drainage. RLE with abrasion to 3rd toe. No s/s of acute infection. Left first toe with eschar. No s/s of infection acutely. Right first toe with black eschar as well. Right medial thigh wound is site of previous abscess previously opened at another facility. Tunneling present. Packing orders placed by wound as well as management of all other orders. Buttocks iwth yeast maceration bilaterally without any open areas. NEURO: At baseline. Currently A&Ox3, but is my understanding that this waxes and wanes. EXTREMITIES: Decreased AROM. Pt W/C at baseline but only for one month. PT/OT consulted. PSYCH: Appropriate attitude, affect and mood. Objective Data Vital Signs Vital Signs: Vital Signs - 24 hr 11/20/24 12:00 11/20/24 14:00 11/20/24 14:36 Temperature 96.1 F L Pulse Rate 76 76 Respiratory Rate 113 H Blood Pressure 113/71 Pulse Oximetry 98 94 Oxygen Delivery Room Air Oxygen Flow Rate 11/20/24 14:36 11/20/24 14:42 11/20/24 15:01 Temperature Pulse Rate 77 71 Respiratory Rate 20 20 Blood Pressure Pulse Oximetry Oxygen Delivery Nasal Cannula Oxygen Flow Rate 2 11/20/24 16:00 11/20/24 19:46 11/20/24 19:53 Temperature Pulse Rate 65 72 70 Respiratory Rate 20 20 Blood Pressure Pulse Oximetry Oxygen Delivery Oxygen Flow Rate 11/20/24 20:00 11/20/24 20:00 11/20/24 22:00 Temperature 97.4 F L Pulse Rate 68 69 Respiratory Rate 18 Blood Pressure 112/58 L Pulse Oximetry 100 Oxygen Delivery Room Air Oxygen Flow Rate 11/21/24 00:00 11/21/24 04:00 11/21/24 06:00 Temperature 97.8 F Pulse Rate 64 64 66 Respiratory Rate 18 Blood Pressure 103/71 Pulse Oximetry 98 Oxygen Delivery Oxygen Flow Rate 11/21/24 09:01 11/21/24 09:19 11/21/24 09:19 Temperature Pulse Rate 77 77 Respiratory Rate 20 Blood Pressure Pulse Oximetry 94 Oxygen Delivery Nasal Cannula Oxygen Flow Rate 2 11/21/24 09:28 Temperature Pulse Rate 75 Respiratory Rate 20 Blood Pressure Pulse Oximetry Oxygen Delivery Oxygen Flow Rate Intake/Output Intake/Output: Intake & Output 11/18/24 11/19/24 11/20/24 11/21/24 23:59 23:59 23:59 23:59 Intake Total 201 756 9968 440 Output Total 0 540 Balance 855 000 5526 440 Meds/Results Medications: Active Medications Generic Name Dose Route Start Last Admin Trade Name Freq PRN Reason Stop Dose Admin Hydrocodone Bitart/Acetaminophen 1 tab 11/20/24 08:26 11/20/24 08:39 Hydrocodone/Acetaminophen (*Crx) 5-325 Mg Tablet PO 1 tab Q6H PRN Administration Pain Rated 4-6 Albuterol 2.5 mg 11/20/24 11:24 Albuterol Sulfate Neb 2.5 Mg/3 Ml Inh INHALATION Q4HRT PRN Wheezing Albuterol/Ipratropium 3 ml 11/20/24 14:00 11/21/24 09:18 Ipratropium 0.5 Mg/Albuterol Sulfate 2.5 Mg Ampul.Neb 3 Ml INHALATION 3 ml Q6HRT CAREN Administration Aspirin 81 mg 11/19/24 09:00 11/20/24 08:38 Aspirin 81 Mg Enteric Tablet PO 81 mg DAILY CAREN Administration Atorvastatin Calcium 80 mg 11/19/24 18:00 11/20/24 17:15 Atorvastatin 40 Mg Tablet PO 80 mg QPM CAREN Administration Carvedilol 6.25 mg 11/19/24 09:00 11/21/24 09:01 Carvedilol 6.25 Mg Tablet PO 6.25 mg Q12HR CAREN Administration Clopidogrel Bisulfate 75 mg 11/19/24 09:00 11/20/24 08:37 Clopidogrel Bisulfate 75 Mg Tablet PO 75 mg DAILY CAREN Administration Dextrose 12.5 gm 11/20/24 10:53 Dextrose 50% 25 Gm/50 Ml Syringe IV PUSH PRN PRN Hypoglycemia Protocol Duloxetine HCl 60 mg 11/19/24 09:00 11/21/24 09:01 Duloxetine Hcl 60 Mg Capsule.Dr PO 60 mg DAILY CAREN Administration Ferrous Sulfate 325 mg 11/19/24 09:00 11/21/24 09:01 Ferrous Sulfate [address] PO 325 mg DAILY CAREN Administration Folic Acid 1 mg 11/19/24 09:00 11/21/24 09:01 Folic Acid 1 Mg Tablet PO 1 mg DAILY CAREN Administration Furosemide 40 mg 11/20/24 17:00 11/21/24 09:01 Furosemide Inj 40 Mg/4 Ml Vial IV PUSH 40 mg BID CAREN Administration Glucagon 1 mg 11/20/24 10:53 Glucagon For Inj 1 Mg Vial IM PRN PRN Hypoglycemia Protocol Glucose 15 gm 11/20/24 10:53 Glucose Oral Gel 15 Gm Of Glucse In 37.5 Gm Tube PO PRN PRN Hypoglycemia Protocol Ceftriaxone Sodium 1 gm in 50 mls @ 100 mls/hr 11/19/24 17:00 11/20/24 17:15 Rocephin 1 Gm/Ns 50 Ml IVPB 100 mls/hr Q24H CAREN Administration Azithromycin 500 mg in 250 mls @ 250 mls/hr 11/19/24 17:00 11/20/24 17:14 Zithromax IVPB 250 mls/hr Q24H CAREN Administration Dextrose 1,000 mls @ 100 mls/hr 11/20/24 10:53 Dextrose 5% 1,000 Ml IVPB PRN PRN Hypoglycemia Protocol Insulin Aspart 2 - 5 units 11/20/24 12:00 11/20/24 18:14 Insulin Aspart (*Bk) 100 Units/Ml SUB-Q Not Given TIDWM CAREN Protocol Magnesium Oxide 400 mg 11/19/24 09:00 11/21/24 09:01 Magnesium Oxide 400 Mg Tablet PO 400 mg DAILY CAREN Administration Miscellaneous Information 1 each 11/19/24 00:01 Zenpep Nonformulary. Can Patient Use Home Supply? XX 12/19/24 00:00 CLARIFY CAREN Non-Formulary Medication 2 cap 11/19/24 11:30 Sgnlxf-Feyykdpr-Yblscku [Zenpep] PO 12/19/24 11:29 AC CAREN Ondansetron HCl 4 mg 11/18/24 15:59 Ondansetron Inj 4 Mg/2 Ml Vial IV PUSH Q4H PRN Nausea Pantoprazole Sodium 40 mg 11/18/24 21:00 11/21/24 09:01 Pantoprazole Sodium Iv 40 Mg Vial IV PUSH 40 mg Q12HR CAREN Administration Perflutren Lipid Microsphere 0 ml 11/20/24 08:01 Perflutren Lipid Microspheres 1.5 Ml Vial Diluted To 10 Ml Total Volume IV PUSH 11/23/24 08:01 ONCE PRN adequate visualization Protocol Spironolactone 25 mg 11/19/24 09:00 11/21/24 09:01 Spironolactone 25 Mg Tablet PO 25 mg DAILY CAREN Administration Radiology Results: ITS Impressions Chest X-Ray 11/18/24 15:20 IMPRESSION: Left basilar atelectasis versus pneumonia seen medially. Head CT 11/19/24 15:41 Impression: No acute intracranial hemorrhage or suspicious mass effect. Inflammatory sinus disease. CT Brain Angiography 11/19/24 16:03 IMPRESSION: Unremarkable CTA of the head, as detailed above Labs Labs: Laboratory Results - last 24 hr 11/20/24 11/20/24 11/20/24 08:19 08:23 11:49 WBC 3.5 L RBC 3.29 L Hgb 7.8 L Hct 25.7 L MCV 78.1 L MCH 23.7 L MCHC 30.4 L RDW 23.6 H Plt Count 111 L MPV 8.6 Immature Gran % (Auto) 2.3 H Neut % (Auto) 58.5 Lymph % (Auto) 26.5 [place] % (Auto) 8.9 H Eos % (Auto) 2.9 Baso % (Auto) 0.9 Lymph # (Auto) 0.92 [place] # (Auto) 0.3 Eos # (Auto) 0.1 Baso # (Auto) 0.0 Abs Immat Gran (auto) 0.08 H Absolute Neuts (auto) 2.0 Absolute Nucleated RBC 0.000 Nucleated RBC % 0.0 Platelet Estimate Decreased Hypochromasia 2+ Anisocytosis 2+ Tear Drop Cells Ovalocytes 1+ Crenated Cell Schistocytes None seen Sodium Potassium Chloride Carbon Dioxide Anion Gap BUN Creatinine Estim Creat Clear Calc Estimated GFR Glucose POC Capillary Glucose 142 H Hemoglobin A1c 5.1 Calcium Total Bilirubin AST ALT Alkaline Phosphatase Total Protein Albumin 11/20/24 11/20/24 11/21/24 17:48 22:27 06:05 WBC 3.2 L RBC 3.33 L Hgb 7.7 L Hct 25.6 L MCV 76.9 L MCH 23.1 L MCHC 30.1 L RDW 23.1 H Plt Count 115 L MPV 8.9 Immature Gran % (Auto) 1.3 H Neut % (Auto) 55.6 Lymph % (Auto) 28.1 [place] % (Auto) 9.7 H Eos % (Auto) 4.7 H Baso % (Auto) 0.6 Lymph # (Auto) 0.90 [place] # (Auto) 0.3 Eos # (Auto) 0.2 Baso # (Auto) 0.0 Abs Immat Gran (auto) 0.04 H Absolute Neuts (auto) 1.8 Absolute Nucleated RBC 0.000 Nucleated RBC % 0.0 Platelet Estimate Adequate Hypochromasia 2+ Anisocytosis 2+ Tear Drop Cells 1+ Ovalocytes 1+ Crenated Cell 1+ Schistocytes None seen Sodium 137 Potassium 3.0 L Chloride 105 Carbon Dioxide 30 Anion Gap 2 L BUN 10 Creatinine 0.53 L Estim Creat Clear Calc 75 Estimated GFR > 60 Glucose 101 POC Capillary Glucose 104 111 H Hemoglobin A1c Calcium 6.9 L Total Bilirubin 0.5 AST 34 ALT 17 Alkaline Phosphatase 96 Total Protein 5.0 L Albumin 2.0 L Quality VTE Prophylaxis VTE prophylaxis: mechanical ordered (Unable to order secondary to open wounds on legs) and pharmacologic ordered (Unable to order as pt appears to have a GI bleed) Hospitalist MIPS Advance Care Plan I have confirmed that the patient's Advanced Care Plan is present, code status is documented, or surrogate decision maker is listed in patient medical record.: Yes Medication Reconciliation I have utilized all available resources to obtain, update and review the pat ients current medications (includes all prescriptions, OTC, herbals, cannabis, and nutritional supplements).: Yes
[2024-11-21 09:58] LABS: Glucose Point of Care 74 mg/dl (65-105)
[2024-11-21] MEDS: CALCIUM GLUC 2,000 MG/NS 100ML 2,000 MG/100 ML BAG 100 MG IVPB (10:52)
[2024-11-21] MEDS: POTASSIUM CHLORIDE INJ 40 MEQ in SODIUM CHLORIDE 0.9% IV 500 ML 130 MEQ IVPB (12:02)
[2024-11-21 12:41] LABS: Glucose Point of Care 136 mg/dl (65-105)
[2024-11-21 17:49] LABS: Glucose Point of Care 97 mg/dl (65-105)
[2024-11-21] MEDS: AZITHROMYCIN 500 MG/NS 250 ML 500 MG/250 ML BAG 250 MG IVPB (18:00)
[2024-11-21] MEDS: ATORVASTATIN 40 MG TABLET 80 MG PO (18:00)
[2024-11-21 21:07] LABS: Glucose Point of Care 79 mg/dl (65-105)
[2024-11-22] VITALS (18 sets, daily range): BP systolic 107–122; BP diastolic 48–71; PULSE 64–85; RESP 18–20; TEMP 36.4–36.8; O2SAT 93–100
[2024-11-22] MEDS: IPRATROPIUM 0.5 MG/ALBUTEROL SULFATE 2.5 MG AMPUL.NEB 3 ML INHALATION ×4 (03:36→20:26)
[2024-11-22] MEDS: MAGNESIUM OXIDE 400 MG TABLET PO (08:30)
[2024-11-22] MEDS: carvediloL 6.25 MG TABLET PO ×2 (08:30→21:09)
[2024-11-22] MEDS: DULoxetine HCL 60 MG CAPSULE.DR PO (08:30)
[2024-11-22] MEDS: SPIRONOLACTONE 25 MG TABLET PO (08:30)
[2024-11-22 08:31] LABS: Glucose Point of Care 73 mg/dl (65-105)
[2024-11-22] MEDS: FUROSEMIDE INJ 40 MG/4 ML VIAL IV PUSH (08:31)
[2024-11-22] MEDS: PANTOPRAZOLE SODIUM IV 40 MG VIAL IV PUSH (08:31)
[2024-11-22] MEDS: FERROUS SULFATE 325 MG TABLET DR PO (08:31)
[2024-11-22] MEDS: FOLIC ACID 1 MG TABLET PO (08:31)
[2024-11-22] MEDS: HYDROcodone/acetaminophen (*CRX) 5-325 MG TABLET 1 TAB PO (08:42)
--- NOTE | 2024-11-22 09:01 | P.PNIM_ITS ---
Progress Note: A&P Assessment and Plan (1) Pneumonia: Code(s): J18.9 - Pneumonia, unspecified organism Status: Acute Assessment and Plan: * Continue IV abx of Rocephin and Azithromycin. antibiotics will be finished on 11/23/2024 * Follow cultures. Negative thus far. * Trend labs and VS. * Add Duoneb Q6 hrs caren and PRN Albuterol. (2) Occult GI bleeding: Code(s): R19.5 - Other fecal abnormalities Status: Acute Assessment and Plan: no active s/o bleeidng * Continue to monitor for any acute s/s of bleeding. * GI Following. * Avoid emperic anticoagulation at this time. * Trend labs, especially Hgb. * Consider transfusion below 7.0. * restart Plavix * may restart aspirin tomorrow if no signs of bleeding. * Continue Protonix IV (3) Peripheral vascular disease: Code(s): I73.9 - Peripheral vascular disease, unspecified Status: Chronic Assessment and Plan: * Suspect partially cause of multiple wounds note to BLE. * Monitor for healing of wounds. * Wound care nurse has been consulted. * Check all pedal and posterior tibial pulses Qshift. * Follow all instructions for wound care daily. (4) Coronary artery disease: Code(s): I25.10 - Atherosclerotic heart disease of [place] coronary artery without angina pectoris Status: Chronic Assessment and Plan: Chest pain-free * Continue Telemetry. * Plavix resume (5) Acute on chronic diastolic CHF (congestive heart failure): Code(s): I50.33 - Acute on chronic diastolic (congestive) heart failure Status: Acute Assessment and Plan: euvolemic * No notable ECHO on file for pt found. * ECHO EF 40-45% with pulmonary hypertension * home spironolactone * Daily weights and accurate I&O are also ordered. (6) Type 2 diabetes mellitus: Code(s): E11.9 - Type 2 diabetes mellitus without complications Status: Chronic Assessment and Plan: * Holding home dose of Metformin. * Pt now more alert, oriented and eating more, suspect that will cause his hypoglycemic episodes to rebound. * He is started on low dose SSI if needed * Diabetic diet that is soft and bite sized * Hypoglycemic protocol * Glucose checks AC and HS and PRN. (7) Altered mental status: Code(s): R41.82 - Altered mental status, unspecified Status: Acute Assessment and Plan: resolved [facility] and even though somewhat confused, he is calm and cooperative could be due to hypoglycemia * This appears to wax and wane. Etiology encephalopathy from current infection? vs. known cognitive deficit and seizure disorder. * Pt appears to be returned to his baseline at this time, cooperative, conversing and without any Neurological deficits. * CT/CTA head were negative for any acute abnormalities. (8) Hypokalemia: Code(s): E87.6 - Hypokalemia Status: Acute Assessment and Plan: replete as needed daily BMP (9) Malnutrition: Code(s): E46 - Unspecified protein-calorie malnutrition Status: Acute Assessment and Plan: Ensure t.i.d. Time Spent With Patient Time with patient: Greater than 35 minutes Subjective Date/time seen: 11/22/24 09:01 Interval history: 74-year-old male with past medical history significant for congestive heart failure, coronary artery disease, cognitive communication deficit, peripheral vascular disease, GERD, coronary artery disease, seizure disorder, hypothyroidism, hyperlipidemia, type 2 diabetes mellitus, COPD presents with weakness and shortness of breath. patient will finish IV antibiotics today, plan to wean O2 and discharge back to rehab tomorrow Review of Systems Review of Systems: All systems reviewed & are unremarkable except as noted in HPI and below Neurologic: Reports Abnormal speech present Exam Narrative: CONSTITUTIONAL: elderly appearing, chronically ill appearing lying supine at this time. pale HEENT: Head is grossly atraumatic and normocephalic. No lesions or bruising noted. MMM, patent oropharynx EYES: PERRLS, EOMs intact and no icterus noted. RESPIRATORY: Coarse rales and rhonchi noted throughout all kim. CARDIAC: RRR, S1 and S2 present without S3, S4, m,r,g,h GI: Soft, NT, BS present x4 quads. Edema to the BLE. SKIN: LLE w/large scabbed over abrasion. Surrounding skin is intact and without s/s of infection. No drainage. RLE with abrasion to 3rd toe. No s/s of acute infection. Left first toe with eschar. No s/s of infection acutely. Right first toe with black eschar as well. Right medial thigh wound is site of previous abscess previously opened at another facility. Tunneling present. Packing orders placed by wound as well as management of all other orders. Buttocks iwth yeast maceration bilaterally without any open areas. NEURO: At baseline. Currently A&Ox3, but is my understanding that this waxes and wanes. EXTREMITIES: Decreased AROM. Pt W/C at baseline but only for one month. PT/OT consulted. PSYCH: Appropriate attitude, affect and mood. Const: General: comfortable, no acute distress, well developed, alert, awake, ill appearing chronically and average body habitus Nutritional Appearance: average body habitus Orientation/consciousness: oriented to person and patient oriented x3 Other: Generalized pallor HENMT: Head: normal to inspection, normocephalic and atraumatic Ears: hearing grossly normal bilaterally Face/Nose/Sinus: normal facial exam Face and sinus: normal facial exam Eyes: General: appearance normal, both eyes and all related structures Pupils: Equal, round and reactive pupils present EOM: EOMs intact bilaterally Neck: Neck: full ROM, no lymphadenopathy and no JVD Thyroid: thyroid normal Lymphatic: no lymphadenopathy noted Resp: Effort & Inspection: normal respiratory effort and able to speak in complete sentences Auscultation: clear to auscultation bilaterally Cardio: Jugular venous distension: no JVD Rate: regular rate Rhythm: regular rhythm Heart sounds: S1 normal heart sound present and S2 normal heart sound present : General: Yes deferred Skin: Rashes: no rashes Wounds: no wounds Neuro: General: oriented to person, patient oriented x3, CN's II-XI intact bilaterally and Unable to assess gait Cranial nerves: Yes CN's II-XII intact bilaterally and Yes Equal, round and reactive pupils present Cognition (Neuro): normal cognition Speech: normal speech and Abnormal speech present Details: expressive aphasia Gait exam (Neuro): Normal gait present and Unable to assess gait Motor exam (neuro): 5/5 motor strength present throughout Extrem: General: normal to inspection, full ROM, no joint enlargement and no pedal edema Objective Data Vital Signs Vital Signs: Vital Signs - 24 hr 11/21/24 09:19 11/21/24 09:19 11/21/24 09:26 Temperature Pulse Rate 77 Respiratory Rate 20 Blood Pressure Pulse Oximetry 94 94 Oxygen Delivery Nasal Cannula Nasal Cannula Oxygen Flow Rate 2 2 11/21/24 09:28 11/21/24 12:05 11/21/24 12:58 Temperature Pulse Rate 75 69 Respiratory Rate 20 Blood Pressure Pulse Oximetry Oxygen Delivery Nasal Cannula Oxygen Flow Rate 2 11/21/24 14:29 11/21/24 14:37 11/21/24 14:45 Temperature 97.5 F L Pulse Rate 68 64 77 Respiratory Rate 20 20 16 Blood Pressure 101/66 Pulse Oximetry 92 Oxygen Delivery Oxygen Flow Rate 11/21/24 19:48 11/21/24 19:48 11/21/24 20:00 Temperature Pulse Rate 71 66 Respiratory Rate 23 H Blood Pressure Pulse Oximetry 93 Oxygen Delivery Nasal Cannula Oxygen Flow Rate 2 11/21/24 20:00 11/21/24 22:00 11/22/24 00:00 Temperature 98.2 F Pulse Rate 53 L 69 Respiratory Rate 16 Blood Pressure 126/69 Pulse Oximetry 95 97 Oxygen Delivery Nasal Cannula Oxygen Flow Rate 2 11/22/24 03:36 11/22/24 03:43 11/22/24 04:00 Temperature Pulse Rate 67 74 72 Respiratory Rate 20 20 Blood Pressure Pulse Oximetry Oxygen Delivery Oxygen Flow Rate 11/22/24 06:00 11/22/24 07:30 11/22/24 07:31 Temperature 98.1 F Pulse Rate 73 70 Respiratory Rate 18 20 Blood Pressure 107/48 L Pulse Oximetry 100 Oxygen Delivery Nasal Cannula Oxygen Flow Rate 2 11/22/24 07:43 11/22/24 08:30 Temperature Pulse Rate 85 74 Respiratory Rate 20 Blood Pressure Pulse Oximetry Oxygen Delivery Oxygen Flow Rate Intake/Output Intake/Output: Intake & Output 11/19/24 11/20/24 11/21/24 11/22/24 23:59 23:59 23:59 23:59 Intake Total 700 1340 2060 500 Output Total 540 900 Balance 160 1340 2060 -400 Meds/Results Medications: Active Medications Generic Name Dose Route Start Last Admin Trade Name Freq PRN Reason Stop Dose Admin Hydrocodone Bitart/Acetaminophen 1 tab 11/20/24 08:26 11/22/24 08:42 Hydrocodone/Acetaminophen (*Crx) 5-325 Mg Tablet PO 1 tab Q6H PRN Administration Pain Rated 4-6 Albuterol 2.5 mg 11/20/24 11:24 Albuterol Sulfate Neb 2.5 Mg/3 Ml Inh INHALATION Q4HRT PRN Wheezing Albuterol 1 puff 11/21/24 14:09 Albuterol Sulfate (*Sp) Aerosol 1 Puff INHALATION Q4H PRN shortness of breath or wheezing Albuterol/Ipratropium 3 ml 11/20/24 14:00 11/22/24 07:28 Ipratropium 0.5 Mg/Albuterol Sulfate 2.5 Mg Ampul.Neb 3 Ml INHALATION 3 ml Q6HRT CAREN Administration Aspirin 81 mg 11/19/24 09:00 11/20/24 08:38 Aspirin 81 Mg Enteric Tablet PO 81 mg DAILY CAREN Administration Atorvastatin Calcium 80 mg 11/19/24 18:00 11/21/24 18:00 Atorvastatin 40 Mg Tablet PO 80 mg QPM CAREN Administration Carvedilol 6.25 mg 11/19/24 09:00 11/22/24 08:30 Carvedilol 6.25 Mg Tablet PO 6.25 mg Q12HR CAREN Administration Clopidogrel Bisulfate 75 mg 11/19/24 09:00 11/20/24 08:37 Clopidogrel Bisulfate 75 Mg Tablet PO 75 mg DAILY CAREN Administration Dextrose 12.5 gm 11/20/24 10:53 Dextrose 50% 25 Gm/50 Ml Syringe IV PUSH PRN PRN Hypoglycemia Protocol Duloxetine HCl 60 mg 11/19/24 09:00 11/22/24 08:30 Duloxetine Hcl 60 Mg Capsule. PO 60 mg DAILY CAREN Administration Ferrous Sulfate 325 mg 11/19/24 09:00 11/22/24 08:31 Ferrous Sulfate [address] PO 325 mg DAILY CAREN Administration Folic Acid 1 mg 11/19/24 09:00 11/22/24 08:31 Folic Acid 1 Mg Tablet PO 1 mg DAILY CAREN Administration Furosemide 40 mg 11/20/24 17:00 11/22/24 08:31 Furosemide Inj 40 Mg/4 Ml Vial IV PUSH 40 mg BID CAREN Administration Glucagon 1 mg 11/20/24 10:53 Glucagon For Inj 1 Mg Vial IM PRN PRN Hypoglycemia Protocol Glucose 15 gm 11/20/24 10:53 Glucose Oral Gel 15 Gm Of Glucse In 37.5 Gm Tube PO PRN PRN Hypoglycemia Protocol Ceftriaxone Sodium 1 gm in 50 mls @ 100 mls/hr 11/19/24 17:00 11/21/24 17:59 Rocephin 1 Gm/Ns 50 Ml IVPB 100 mls/hr Q24H CAREN Administration Azithromycin 500 mg in 250 mls @ 250 mls/hr 11/19/24 17:00 11/21/24 18:00 Zithromax IVPB 250 mls/hr Q24H CAREN Administration Dextrose 1,000 mls @ 100 mls/hr 11/20/24 10:53 Dextrose 5% 1,000 Ml IVPB PRN PRN Hypoglycemia Protocol Insulin Aspart 2 - 5 units 11/20/24 12:00 11/22/24 08:31 Insulin Aspart (*Bkc) 100 Units/Ml SUB-Q Not Given TIDWM CAREN Protocol Magnesium Oxide 400 mg 11/19/24 09:00 11/22/24 08:30 Magnesium Oxide 400 Mg Tablet PO 400 mg DAILY CAREN Administration Ondansetron HCl 4 mg 11/18/24 15:59 Ondansetron Inj 4 Mg/2 Ml Vial IV PUSH Q4H PRN Nausea Pantoprazole Sodium 40 mg 11/18/24 21:00 11/22/24 08:31 Pantoprazole Sodium Iv 40 Mg Vial IV PUSH 40 mg Q12HR CAREN Administration Perflutren Lipid Microsphere 0 ml 11/20/24 08:01 Perflutren Lipid Microspheres 1.5 Ml Vial Diluted To 10 Ml Total Volume IV PUSH 11/23/24 08:01 ONCE PRN adequate visualization Protocol Spironolactone 25 mg 11/19/24 09:00 11/22/24 08:30 Spironolactone 25 Mg Tablet PO 25 mg DAILY CAREN Administration Radiology Results: ITS Impressions Chest X-Ray 11/18/24 15:20 IMPRESSION: Left basilar atelectasis versus pneumonia seen medially. Head CT 11/19/24 15:41 Impression: No acute intracranial hemorrhage or suspicious mass effect. Inflammatory sinus disease. CT Brain Angiography 11/19/24 16:03 IMPRESSION: Unremarkable CTA of the head, as detailed above Labs Labs: Laboratory Results - last 24 hr 11/21/24 11/21/24 11/21/24 09:55 12:36 17:46 POC Capillary Glucose 74 136 H 97 11/21/24 11/22/24 20:49 08:23 POC Capillary Glucose 79 73 Quality VTE Prophylaxis VTE prophylaxis: mechanical ordered (Unable to order secondary to open wounds on legs) and pharmacologic ordered (Unable to order as pt appears to have a GI bleed)
[2024-11-22 09:54] LABS: Hematocrit 28.8 % (42.0-52.0); Hemoglobin 8.9 g/dL (14.0-18.0); Mean Corpuscular HGB Conc 30.9 g/dl (32-36); Mean Corpuscular Hemoglobin 23.7 pg (26-34); Mean Corpuscular Volume 76.8 fl (80-100); Mean Platelet Volume 8.8 fl (7.4-10.4); Platelet Count Result 168 k/mm3 (150-375); Red Blood Count 3.75 M/mm3 (4.6-6.20); Red Cell Distribution Width 23.4 % (11.5-14.5); White Blood Count 5.8 K/mm3 (4.5-10.0)
[2024-11-22 10:09] LABS: Anion Gap 3 mmol/L (4-12); Blood Urea Nitrogen 10 mg/dL (9-20); Calcium 7.2 mg/dL (8.4-10.2); Carbon Dioxide 32 mmol/L (22-30); Chloride 100 mmol/L (98-107); Estimated CRCL calculation 94 ml/min; Estimated Glomerular Filt Rate > 60; Glucose 104 mg/dL (65-110); Potassium 3.7 mmol/L (3.4-5.0); Sodium 135 mmol/L (137-145)
[2024-11-22 11:57] LABS: Glucose Point of Care 79 mg/dl (65-105)
[2024-11-22] MEDS: AZITHROMYCIN 250 MG TABLET 500 MG PO (16:53)
[2024-11-22] MEDS: ATORVASTATIN 40 MG TABLET 80 MG PO (16:58)
[2024-11-22 17:08] LABS: Glucose Point of Care 108 mg/dl (65-105)
[2024-11-22 20:49] LABS: Glucose Point of Care 109 mg/dl (65-105)
[2024-11-23] VITALS (7 sets, daily range): BP systolic 125; BP diastolic 74; PULSE 64–78; RESP 16–20; TEMP 36.4; O2SAT 88–97
[2024-11-23] MEDS: IPRATROPIUM 0.5 MG/ALBUTEROL SULFATE 2.5 MG AMPUL.NEB 3 ML INHALATION ×2 (02:29→09:15)
[2024-11-23] MEDS: HYDROcodone/acetaminophen (*CRX) 5-325 MG TABLET 1 TAB PO (05:14)
[2024-11-23 05:54] LABS: Hematocrit 26.4 % (42.0-52.0); Hemoglobin 8.1 g/dL (14.0-18.0); Mean Corpuscular HGB Conc 30.7 g/dl (32-36); Mean Corpuscular Hemoglobin 23.5 pg (26-34); Mean Corpuscular Volume 76.5 fl (80-100); Mean Platelet Volume 8.9 fl (7.4-10.4); Platelet Count Result 143 k/mm3 (150-375); Red Blood Count 3.45 M/mm3 (4.6-6.20); Red Cell Distribution Width 23.4 % (11.5-14.5); White Blood Count 3.6 K/mm3 (4.5-10.0)
[2024-11-23 06:13] LABS: Anion Gap 3 mmol/L (4-12); Blood Urea Nitrogen 11 mg/dL (9-20); Calcium 7.2 mg/dL (8.4-10.2); Carbon Dioxide 30 mmol/L (22-30); Chloride 101 mmol/L (98-107); Estimated CRCL calculation 96 ml/min; Estimated Glomerular Filt Rate > 60; Glucose 81 mg/dL (65-110); Potassium 3.3 mmol/L (3.4-5.0); Sodium 134 mmol/L (137-145)
[2024-11-23 08:09] LABS: Glucose Point of Care 80 mg/dl (65-105)
[2024-11-23] MEDS: DULoxetine HCL 60 MG CAPSULE.DR PO (09:09)
[2024-11-23] MEDS: MAGNESIUM OXIDE 400 MG TABLET PO (09:09)
[2024-11-23] MEDS: FERROUS SULFATE 325 MG TABLET DR PO (09:09)
[2024-11-23] MEDS: SPIRONOLACTONE 25 MG TABLET PO (09:10)
[2024-11-23] MEDS: CLOPIDOGREL BISULFATE 75 MG TABLET PO (09:10)
[2024-11-23] MEDS: PANTOPRAZOLE 40 MG TABLET PO (09:10)
[2024-11-23] MEDS: carvediloL 6.25 MG TABLET PO (09:10)
[2024-11-23] MEDS: FOLIC ACID 1 MG TABLET PO (09:10)
--- NOTE | 2024-11-23 10:15 | P.DS_ITS ---
DS: Admitting Diagnosis Discharge Date 11/23/24 Admitting Diagnosis Pneumonia, Occult GI Bleed, PVD, CAD, CHF DS: Discharge Diagnosis Discharge Diagnosis (1) Pneumonia: Code(s): J18.9 - Pneumonia, unspecified organism Status: Acute Assessment and Plan: * Continue IV abx of Rocephin and Azithromycin. antibiotics will be finished on 11/23/2024 * Follow cultures. Negative thus far. * Trend labs and VS. * Add Duoneb Q6 hrs caren and PRN Albuterol. 11/23/24: * Abx finished full course. * Labs and VS stable. * On room air and ready for discharge at this time. (2) Occult GI bleeding: Code(s): R19.5 - Other fecal abnormalities Status: Acute Assessment and Plan: no active s/o bleeidng * Continue to monitor for any acute s/s of bleeding. * GI Following. * Avoid emperic anticoagulation at this time. * Trend labs, especially Hgb. * Consider transfusion below 7.0. * restart Plavix * may restart aspirin tomorrow if no signs of bleeding. * Continue Protonix IV 11/23/24: * Aspirin has been restarted. * Pt without any overt s/s of bleeding. * Stable H&H. * Was consulted on by GI who advises no need for scope unless obvious bleeding. * Stable for discharge. (3) Peripheral vascular disease: Code(s): I73.9 - Peripheral vascular disease, unspecified Status: Chronic Assessment and Plan: * Suspect partially cause of multiple wounds note to BLE. * Monitor for healing of wounds. * Wound care nurse has been consulted. * Check all pedal and posterior tibial pulses Qshift. * Follow all instructions for wound care daily. 11/23/24: * Continue to perform wound dressings at [place] where being discharged. (4) Coronary artery disease: Code(s): I25.10 - Atherosclerotic heart disease of [place] coronary artery without angina pectoris Status: Chronic Assessment and Plan: Chest pain-free * Continue Telemetry. * Plavix resume (5) Acute on chronic diastolic CHF (congestive heart failure): Code(s): I50.33 - Acute on chronic diastolic (congestive) heart failure Status: Acute Assessment and Plan: euvolemic * No notable ECHO on file for pt found. * ECHO EF 40-45% with pulmonary hypertension * home spironolactone * Daily weights and accurate I&O are also ordered. 11/23/24: * Continue home regimen and follow up with Cardiology as outpt. (6) Type 2 diabetes mellitus: Code(s): E11.9 - Type 2 diabetes mellitus without complications Status: Chronic Assessment and Plan: * Holding home dose of Metformin. * Pt now more alert, oriented and eating more, suspect that will cause his hypoglycemic episodes to rebound. * He is started on low dose SSI if needed * Diabetic diet that is soft and bite sized * Hypoglycemic protocol * Glucose checks AC and HS and PRN. 11/23/24: * Continue home regimen. (7) Altered mental status: Code(s): R41.82 - Altered mental status, unspecified Status: Resolved Assessment and Plan: resolved typically able to take meds at [facility] and even though somewhat confused, he is calm and cooperative could be due to hypoglycemia * This appears to wax and wane. Etiology encephalopathy from current infection? vs. known cognitive deficit and seizure disorder. * Pt appears to be returned to his baseline at this time, cooperative, conversing and without any Neurological deficits. * CT/CTA head were negative for any acute abnormalities. 11/23/24: * Resolved. Suspect an encephalopathy from his PNA infection. (8) Hypokalemia: Code(s): E87.6 - Hypokalemia Status: Resolved Assessment and Plan: replete as needed daily BMP (9) Malnutrition: Code(s): E46 - Unspecified protein-calorie malnutrition Status: Acute Assessment and Plan: Ensure t.i.d. 11/23/24: * Continue diet supplementation at assisted upon discharge. Plan Stable for discharge to [facility] in Long Term. DS: Summary Hospital Course Reason for hospitalization: AMS, PNA Hospital Course: This 74 year old male pt w/PMH of CAD, CHF w/EF of 40-45%, Cognitive disorder, PVD, GERD, Seizure disorder, Hypothyroidism, HLD, COPD and DM2 who resides at [facility] in [place], and who was admitted to the hospital on 11/18/24, is now ready for discharge. He was admitted after it was found that he had a left basilar PNA and was also found to have AMS and acute confusion. He was admitted to the hospital, started on IV abx, that of which he has completed a full course of Azithromycin and Rocephin and monitored further. Pt's mental status remained confused and he at one time became combative, attempting to remove lines, pull on cords and was not re-directable. This was worked up with CT brain that did not demonstrate any acute abnormalities. The pt slowly improved on his own and his AMS has resolved. His overall condition has improved and he is now on room air, not requiring any supplemental oxygen to assist with his breathing. He was found to have wounds to his BLE and wound care was asked to consult. 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 2) Small abrasion to the tip of the left third toe - Cover with bandaid. 3) Arterial ulcer present to the metatarsal head of the left first toe - Apply Betadine daily to help keep dry and intact and appl topical Bacitracin without topical dressing. 4) Arterial ulcer present to the metatarsal head of the right first toe - Betadine daily to keep dry and intact and apply Bacitracin without cover dressing. 5) Small abrasion to the anterior aspect of the LLE - Keep clean and dry with soap and water and apply a border dressing daily. 6) Open incision to right medial thigh - Clean with wound cleanser daily and lightly pack with 1/4 inch Iodoform ribbon to wick exudate to promote closure. Cover with a dry gauze and apply ABD pad for better exudate control. 7) Dry yeast maceration to the bilateral buttocks - Barrier cream and clear antifungal barrier dressing to be applied daily. His overall condition is improved and the pt is stable for discharge back to his [facility] today. Status at Discharge Cognitive/behavioral status at discharge: At baseline and grossly improved. Functional status at discharge: wheelchair bound Overall status at discharge: patient is back to baseline Time Spent with Patient Time attestation: Total time spent providing and/or coordinating discharge services: Time spent: Greater than 30 minutes Specific discharge activities: Follow up, dressing changes, and return to ER. Exam Narrative: CONSTITUTIONAL: elderly appearing, chronically ill appearing but overall improved sitting up in the chair at the bedside today in no acute distress. HEENT: Head is grossly atraumatic and normocephalic. No lesions or bruising noted. MMM, patent oropharynx EYES: PERRLS, EOMs intact and no icterus noted. RESPIRATORY: Coarse rales and rhonchi noted throughout all kim. CARDIAC: RRR, S1 and S2 present without S3, S4, m,r,g,h GI: Soft, NT, BS present x4 quads. Edema to the BLE. SKIN: As previously noted. No new lesions, dressings intact. NEURO: At baseline. Currently A&Ox3 and stable. EXTREMITIES: Decreased AROM. Pt W/C at baseline but only for one month. PT/OT consulted. PSYCH: Appropriate attitude, affect and mood. DS: Data Data Completed and Pending Completed studies during hospitalization: ITS Impressions Chest X-Ray 11/18/24 15:20 IMPRESSION: Left basilar atelectasis versus pneumonia seen medially. Head CT 11/19/24 15:41 Impression: No acute intracranial hemorrhage or suspicious mass effect. Inflammatory sinus disease. CT Brain Angiography 11/19/24 16:03 IMPRESSION: Unremarkable CTA of the head, as detailed above Labs on day of discharge: Labs from last 24 hours 11/23/24 11/23/24 11/22/24 08:01 05:40 20:47 WBC 3.6 L RBC 3.45 L Hgb 8.1 L Hct 26.4 L MCV 76.5 L MCH 23.5 L MCHC 30.7 L RDW 23.4 H Plt Count 143 L MPV 8.9 Sodium 134 L Potassium 3.3 L Chloride 101 Carbon Dioxide 30 Anion Gap 3 L BUN 11 Creatinine 0.55 L Estim Creat Clear Calc 96 Estimated GFR > 60 Glucose 81 POC Capillary Glucose 80 109 H Calcium 7.2 L 11/22/24 11/22/24 17:01 11:54 WBC RBC Hgb Hct MCV MCH MCHC RDW Plt Count MPV Sodium Potassium Chloride Carbon Dioxide Anion Gap BUN Creatinine Estim Creat Clear Calc Estimated GFR Glucose POC Capillary Glucose 108 H 79 Calcium Discharge Plan Discharge Attending physician on discharge: Mala Mansfield Consulting providers: Theo Douglas Discharging Clinician: Mala Mansfield Anticipated Discharge Date/Time: 11/23/24 10:38 Patient Disposition: SNF Activity: as tolerated Diet: heart healthy Wound Care Instructions: other - see discharge instructions Discharge Instructions: Wound instructions: 1) The abrasion to left lateral thigh - COSMO without any active care needed. 2) Small abrasion to the tip of the left third toe - Cover with bandaid. 3) Arterial ulcer present to the metatarsal head of the left first toe - Apply Betadine daily to help keep dry and intact and appl topical Bacitracin without topical dressing. 4) Arterial ulcer present to the metatarsal head of the right first toe - Betadine daily to keep dry and intact and apply Bacitracin without cover dressing. 5) Small abrasion to the anterior aspect of the LLE - Keep clean and dry with soap and water and apply a border dressing daily. 6) Open incision to right medial thigh - Clean with wound cleanser daily and lightly pack with 1/4 inch Iodoform ribbon to wick exudate to promote closure. Cover with a dry gauze and apply ABD pad for better exudate control. 7) Dry yeast maceration to the bilateral buttocks - Barrier cream and clear antifungal barrier dressing to be applied daily. Follow up with PCP [facility]. Patient Instructions: Heart Failure (IP), Blood Thinners (GEN) Patient Language: Divehi Stand Alone Forms: Long Term Discharge Follow-up/Referrals: Shira,MD Abiel [Primary Care Provider] - Discharge Medications: New bacitracin 500 unit/gram ointment 1 applic topical DAILY Qty: 28 0RF Rx Instructions: Apply to the left and right great toes. Continued ProAir RespiClick 90 mcg/actuation aerosol powdr breath activated 1 inh INHALATION Q4H PRN (Reason: shortness of breath or wheezing) atorvastatin 80 mg tablet 80 mg PO QPM carvedilol 6.25 mg tablet 6.25 mg PO Q12H clopidogrel 75 mg tablet 75 mg PO DAILY duloxetine 60 mg capsule,delayed release(DR/EC) 60 mg PO DAILY folic acid 1 mg tablet 1 mg PO DAILY ipratropium-albuterol 0.5 mg-3 mg(2.5 mg base)/3 mL solution for nebulization 3 ml INHALATION Q4H Zenpep 40,000-126,000- 168,000 unit capsule,delayed release(DR/EC) 2 cap PO AC metformin 750 mg tablet extended release 24 hr 750 mg PO DAILY methocarbamol 500 mg tablet 500 mg PO Q12H PRN (Reason: muscle pain) spironolactone 25 mg tablet 25 mg PO DAILY magnesium oxide 400 mg magnesium tablet 400 mg PO DAILY ferrous sulfate [FeroSul] 325 mg (65 mg iron) tablet 325 mg PO DAILY aspirin [Adult Low Dose Aspirin] 81 mg tablet,delayed release (DR/EC) 81 mg PO DAILY Discontinued clindamycin HCl 300 mg capsule 300 mg PO Q6H Patient Comments: DOSE Date of admission: 11/18/24 18:23 Primary Care Provider: MusaAbiel Admitting Provider: Ishmael Ramirez Attending physician on admission: Mala Mansfield Condition: Stable Quality VTE Prophylaxis VTE prophylaxis: mechanical ordered and pharmacologic ordered Hospitalist MIPS Heart Failure (Exclusion) Patient has history of Heart Transplant or Left Ventricular Assistive Device?: No IF YES, STOP HERE Heart Failure (Qualifier) Patient has current or prior documentation of LVEF less than or equal to 40%, or mod/servere depressed LVSF?: Yes IF NO, STOP HERE If Yes, Heart Failure (Qualifier) Patient was prescribed or already taking an Angiotensin-Converting Enzyme (MELONIE) Inhibitor, or Antiotensin Receptor Anne (ARB): Yes Patient was prescribed or already taking bisoprolol, carvedilol, or sustained release metoprolol succinate: Yes
[2024-11-23 11:46] LABS: Glucose Point of Care 112 mg/dl (65-105)
--- OUTSIDE RECORDS SUMMARY | 2024-11-25 04:23 | XMS_ITS | Referral Summary ---
Author Organization [facility] Address [address] [place] [address] Care Team Providers Care De Alcholizer Name Role Phone Unavailable Primary Care Provider Unavailabl e Source Comments [facility],non-owned Affiliates and Associated Physician Practices is amultiple site organization consisting of ambulatory clinics and hospital sitesin [place], [place], [place] and [place]. This disclosure is being madepursuant to the Care Everywhere program and may not contain all information available regarding this patient. Last updated 18.[facility] [employer] Allergies Active Allergy Reactions Criticality Noted Date Comments Tramadol Itching 08/27/2020 Medications * Be aware that medications may not be up to date on this document. Alwaysverify current medications with the patient. Medication Sig Dispensed Refills Start Date End Date Status albuterol HFA (PROVENTIL;VENTOLIN;NC OAIR) 108 (90 Base) MCG/ACT inhaler Inhale [...]
--- OUTSIDE RECORDS SUMMARY | 2024-11-25 04:23 | XMS_ITS | Clinical Summary ---
Author Organization Unknown Care Team Providers Care Car Supervisor Name Role Phone AVELINA HENSLEY, LEONOR Unavailable Unavailable NICHOLE RN, SHAKIR Unavailable Unavailraleigh JOY LPN, COLUMBA Unavailable Unavailable MICHAEL PT, KERA Unavailable Unavailable TIN SOA ARCHITECT, JEROD Unavailable Unavailable NICOLLE OT, MARY Unavailable Unavailable VIOLET CASTANO, SHELDON Unavailable Unavailable Payers Payer Name Policy Type Policy Number Effective Date Expira tion Date [facility].OPTUM.VACCN.PDGM.C.AUTH Problems Condition Name Condition Details Condition Category Status Onset Date Resolution Date Last Treatment Date Treating Clinician Comments ENCNTR FOR SURGICAL AFTCR FOLLOWING SURGERY ON THE CIRC SYS Active 2023-11 0- 00:00: 00 ATHSCL HEART DISEASE OF [place] CORONARY ARTERY W/O ANG PCTRS Active 2023-11 0-04 00:00: 00 BRADYCARDIA, UNSPECIFIED Active 2023-11 0-10 00:00: 00 ESSENTIAL (PRIMARY) HYPERTENSION Active 2023-11 0- 00:00: 00 HYPERLIPIDEM IA, UNSPECIFIED Active 2023-11 0- 00:00: 00 TYPE 2 DIABETES MELLITUS WITHOUT COMPLICATION S Active 2023-11 0- 00:00: 00 PRIMARY PULMONARY HYPERTENSION Active 2023-11 0- 00:00: 00 RHEUMATIC MITRAL STENOSIS WITH INSUFFICIENC Y Active 2023-11 0- 00:00: 00 UNSPECIFIED ASTHMA, UNCOMPLICATE D Active 2023-11 0-20 00:00: 00 OBSTRUCTIVE SLEEP APNEA (ADULT) (PEDIATRIC) Active 2023-11 0- 00:00: 00 GASTRO-ESOPH AGEAL REFLUX DISEASE WITHOUT ESOPHAGITIS Active 2023-11 0- 00:00: 00 LIVER DISEASE, UNSPECIFIED Active 2023-11 0- 00:00: 00 PRESENCE OF ARTIFICIAL KNEE JOINT, BILATERAL Active 2023-11 0-20 00:00: 00 PRESENCE OF CARDIAC PACEMAKER Active 2023-11 0-15 00:00: 00 [facility] (CURRENT) USE OF ORAL HYPOGLYCEMIC DRUGS Active 2023-11 00:00: 00 [facility] (CURRENT) USE OF ANTITHROMBOT ICS/ANTIPLAT ELETS Active [...] on aerosol inhaler 02-13 00:00: 00 Yes [id number] SHORTNESS OF BREATH 1 puff EVERY 6 HOURS 1 puff EVERY 6 HOURS (route: inhalation ) Med Classific ation: Respirato ry Therapy Agents aspirin 81 mg tablet,tavon yed release 02-07 00:00: 00 Yes [id number] BLOOD THINNER 1 tablet DAILY 1 tablet DAILY (route: oral) Med Classific ation: Hematolog ical Agents atorvastati n 80 mg tablet 2023-11 00:00: 00 Yes [id number] CHOLESTEROL CONTROL 1 tablet EVERY PM 1 tablet EVERY PM (route: oral) Med Classific ation: Cardiovas cular Therapy Agents carboxymeth ylcellulose sodium 0.5 % eye drops 02-14 00:00: 00 Yes [id number] DRY EYES 1 drops EVERY 6 HOURS 1 drops EVERY 6 HOURS (route: ophthalmic (eye)) Med Classific ation: Ophthalmi c Agents carvedilol 6.25 mg tablet 02-07 00:00: 00 Yes [id number] HEART FAILURE 0.5 tablet 2 TIMES DAILY 0.5 tablet 2 TIMES DAILY (route: oral) Med Classific ation: Cardiovas cular Therapy Agents clopidogrel 75 mg tablet 2023-11 00:00: 00 Yes [id number] BLOOD THINNER 1 tablet DAILY 1 tablet DAILY (route: oral) Med Classific ation: Hematolog ical Agents duloxetine 60 mg capsule,del ayed release 02-08 00:00: 00 Yes [id number] NERVE PAIN 1 capsule DAILY 1 capsule DAILY (route: oral) Med Classific ation: Central Nervous System Agents ergocalcife rol (vitamin D2) 1,250 mcg (50,000 unit) capsule 2023-11 0-16 00:00: 00 Yes [id number] SUPPLEMENT 1 capsule WEEKLY 1 capsule WEEKLY (route: oral) Med Classific ation: Electroly te Balance-N utritiona l Products ferrous sulfate 325 mg (65 mg iron) tablet 2023-11 0-16 00:00: 00 Yes [id number] ANEMIA 1 tablet DAILY 1 tablet DAILY (route: oral) Med Classific ation: Electroly te Balance-N utritiona l Products folic acid 1 mg tablet 2023-11 0-16 00:00: 00 Yes [id number] SUPPLEMENT 1 tablet DAILY 1 tablet DAILY (route: oral) Med Classific ation: Electroly te Balance-N utritiona l Products glucose 4 gram chewable tablet 3-05 00:00: 00 Yes [id number] LOW BLOOD SUGAR Per instruc tions NEEDED Per instructio ns NEEDED (route: oral) Med Classific ation: Endocrine isosorbide mononitrate ER 30 mg tablet,exte nded release 24 hr 04-11 00:00: 00 Yes [id number] CHEST PAIN CONTROL 0.5 tablet DAILY 0.5 tablet DAILY (route: oral) Med Classific ation: Cardiovas cular Therapy Agents magnesium oxide 400 mg (241.3 mg magnesium) tablet 2023-11 00:00: 00 Yes [id number] SUPPLEMENT 1 tablet 2 TIMES DAILY 1 tablet 2 TIMES DAILY (route: oral) Med Classific ation: Electroly te Balance-N utritiona l Products metformin ER 750 mg tablet,exte nded release 24 hr 2023-1116 00:00: 00 Yes [id number] BLOOD SUGAR CONTROL 1 tablet DAILY 1 tablet DAILY (route: oral) Med Classific ation: Endocrine methocarbam ol 500 mg tablet 04-11 00:00: 00 Yes [id number] MUSCLE SPASMS 1 tablet 2 TIMES DAILY 1 tablet 2 TIMES DAILY (route: oral) Med Classific ation: Locomotor System multivitami n tablet 4-09 00:00: 00 Yes [id number] SUPPLEMENT 1 tablet DAILY 1 tablet DAILY (route: oral) Med Classific ation: Electroly te Balance-N utritiona l Products omeprazole 40 mg capsule,del ayed release 04-11 00:00: 00 Yes [id number] GERD 1 capsule EVERY AM 1 capsule EVERY AM (route: oral) Med Classific ation: Gastroint estinal Therapy Agents pregabalin 100 mg capsule 2023-11 00:00: 00 Yes [id number] NERVE PAIN 1 capsule 2 TIMES DAILY [...] ACCEPT ORDERS FROM CONSULTING PHYSICIANS:DR Imelda QUAN (SECURITY PUBLIC SAFETY OFFICER), DR Michelle BAIRD (PCP) RN TO OBSERVE AND ASSESS, BURNER TECHNICIAN/SPORTS MARKETER TO OBSERVE FOR RISK FOR FALLS AND INSTRUCT IN FALL PREVENTION, HOME SAFETY, MEDICATION MANAGEMENT, INFECTION PREVENTION, AND NUTRITION MANAGEMENT. RN/BURNER TECHNICIAN/SPORTS MARKETER NURSE MAY PERFORM O2 SATURATION LEVEL. RN TO ASSESS/BURNER TECHNICIAN TO OBSERVE PATIENT, WITH NOTIFICATION TO THE PHYSICIAN IF SATURATION IS 90% IN THE ABSENCE OF MORE SPECIFIC PARAMETERS FROM THE PHYSICIAN. AGENCY MAY PERFORM A RESUMPTION OF CARE VISIT FOLLOWING ANY HOSPITAL ADMISSION. RN/BURNER TECHNICIAN/SPORTS MARKETER TO MONITOR CO-MORBID CONDITIONS LISTED ON THE PLAN OF CARE AND ANY NEW CONDITIONS THAT PRESENT THEMSELVES DURING THIS EPISODE TO IDENTIFY CHANGES AND INTERVENE TO MINIMIZE COMPLICATIONS. [code = RN TO OBSERVE, ASSESS, EVALUATE, AND DEVELOP AN INDIVIDUALIZED PLAN OF CARE. AGENCY MAY ACCEPT ORDERS FROM CONSULTING PHYSICIANS:DR Imelda QUAN (SECURITY PUBLIC SAFETY OFFICER), DR Michelle BAIRD (PCP) RN TO OBSERVE AND ASSESS, BURNER TECHNICIAN/SPORTS MARKETER TO OBSERVE FOR RISK FOR FALLS AND INSTRUCT IN FALL PREVENTION, HOME SAFETY, MEDICATION MANAGEMENT, INFECTION PREVENTION, AND NUTRITION MANAGEMENT. RN/BURNER TECHNICIAN/SPORTS MARKETER NURSE MAY PERFORM O2 SATURATION LEVEL. RN TO ASSESS/BURNER TECHNICIAN TO OBSERVE PATIENT, WITH NOTIFICATION TO THE PHYSICIAN IF SATURATION IS 90% IN THE ABSENCE OF MORE SPECIFIC PARAMETERS FROM THE PHYSICIAN. AGENCY MAY PERFORM A RESUMPTION OF CARE VISIT FOLLOWING ANY HOSPITAL ADMISSION. RN/BURNER TECHNICIAN/SPORTS MARKETER TO MONITOR CO-MORBID CONDITIONS LISTED ON THE PLAN OF CARE AND ANY NEW CONDITIONS THAT PRESENT THEMSELVES DURING THIS EPISODE TO IDENTIFY CHANGES AND INTERVENE TO MINIMIZE COMPLICATIONS.] Future Scheduled Test MEDICATION MANAGEMENT; RN/BURNER TECHNICIAN/SPORTS MARKETER TO REVIEW MEDICATIONS FOR INTERACTIONS, EFFECTIVENESS OF DRUG THERAPY, AND SIGNS/SYMPTOMS OF ADVERSE REACTIONS. MAY INSTRUCT AND REINFORCE MEDICATION TEACHING RELATED TO THE USE OF MEDICATIONS, DOSAGE, FREQUENCY, PURPOSE, SIDE EFFECTS, AND TO REPORT COMPLICATIONS. [code = MEDICATION MANAGEMENT; RN/BURNER TECHNICIAN/SPORTS MARKETER TO REVIEW MEDICATIONS FOR INTERACTIONS, EFFECTIVENESS OF DRUG THERAPY, AND SIGNS/SYMPTOMS OF ADVERSE REACTIONS. MAY INSTRUCT AND REINFORCE MEDICATION TEACHING RELATED TO THE USE OF MEDICATIONS, DOSAGE, FREQUENCY, PURPOSE, SIDE EFFECTS, AND TO REPORT COMPLICATIONS.] Future Scheduled Test ANTICOAGUL ATION MANAGEMENT; PLAVIX RN TO ASSESS AND TEACH, BURNER TECHNICIAN/SPORTS MARKETER TO OBSERVE/TEACH/MONITOR EFFECTIVENESS OF ANTICOAGULATION THERAPY. RN/BURNER TECHNICIAN/SPORTS MARKETER TO INSTRUCT ON SIGNS AND SYMPTOMS OF BLEEDING/ADVERSE REACTIONS TO REPORT TO PHYSICIAN. [code = ANTICOAGULATION MANAGEMENT; PLAVIX RN TO ASSESS AND TEACH, BURNER TECHNICIAN/SPORTS MARKETER TO OBSERVE/TEACH/MONITOR EFFECTIVENESS OF ANTICOAGULATION THERAPY. RN/BURNER TECHNICIAN/SPORTS MARKETER TO INSTRUCT ON SIGNS AND SYMPTOMS OF BLEEDING/ADVERSE REACTIONS TO REPORT TO PHYSICIAN. ] Future Scheduled Test RISK FOR H OSPITALIZATION; RN TO ASSESS/TEACH, SPORTS MARKETER/BURNER TECHNICIAN TO OBSERVE/TEACH PATIENT/CAREGIVER ON RISK FOR HOSPITALIZATION/EMERGENCY ROOM VISITS, TEACH SIGNS AND SYMPTOMS THAT PUT PATIENT AT RISK, WHEN TO NOTIFY NURSE/PHYSICIAN OF COMPLICATIONS/DECLINE, AND WHEN TO CALL 911. [code = RISK FOR HOSPITALIZATION; RN TO ASSESS/TEACH, SPORTS MARKETER/BURNER TECHNICIAN TO OBSERVE/TEACH PATIENT/CAREGIVER ON RISK FOR HOSPITALIZATION/EMERGENCY ROOM VISITS, TEACH SIGNS AND SYMPTOMS THAT PUT PATIENT AT RISK, WHEN TO NOTIFY NURSE/PHYSICIAN OF COMPLICATIONS/DECLINE, AND WHEN TO CALL 911.] Future Scheduled Test CARDIOVASC ULAR SYSTEM; RN TO ASSESS/TEACH, BURNER TECHNICIAN/SPORTS MARKETER TO OBSERVE/TEACH RELATED TO ALTERED CARDIOVASCULAR STATUS TO MINIMIZE COMPLICATIONS AND REDUCE HOSPITALIZATION. [code = CARDIOVASCULAR SYSTEM; RN TO ASSESS/TEACH, BURNER TECHNICIAN/SPORTS MARKETER TO OBSERVE/TEACH RELATED TO ALTERED CARDIOVASCULAR STATUS TO MINIMIZE COMPLICATIONS AND REDUCE HOSPITALIZATION.] Future Scheduled Test CORONARY A RTERY BYPASS GRAFT (CABG); RN TO ASSESS/TEACH, BURNER TECHNICIAN/SPORTS MARKETER TO OBSERVE/TEACH WARNING SIGNS AND SYMPTOMS TO AVOID HOSPITALIZATION. MONITOR SURGICAL INCISION SITES FOR S/S OF INFECTION. [code = CORONARY ARTERY BYPASS GRAFT (CABG); RN TO ASSESS/TEACH, BURNER TECHNICIAN/SPORTS MARKETER TO OBSERVE/TEACH WARNING SIGNS AND SYMPTOMS TO AVOID HOSPITALIZATION. MONITOR SURGICAL INCISION SITES FOR S/S OF INFECTION.] Future Scheduled Test HYPERTENSI ON MANAGEMENT; RN TO ASSESS AND TEACH, BURNER TECHNICIAN/SPORTS MARKETER TO OBSERVE AND TEACH WARNING SIGNS AND SYMPTOMS TO AVOID HOSPITALIZATION. [code = HYPERTENSION MANAGEMENT; RN TO ASSESS AND TEACH, BURNER TECHNICIAN/SPORTS MARKETER TO OBSERVE AND TEACH WARNING SIGNS AND SYMPTOMS TO AVOID HOSPITALIZATION.] Future Scheduled Test RESPIRATOR Y SYSTEM MANAGEMENT; RN TO ASSESS AND TEACH, BURNER TECHNICIAN/SPORTS MARKETER TO OBSERVE AND TEACH RELATED TO ALTERED RESPIRATORY STATUS TO MINIMIZE COMPLICATIONS AND REDUCE HOSPITALIZATION. [code = RESPIRATORY SYSTEM MANAGEMENT; RN TO ASSESS AND TEACH, BURNER TECHNICIAN/SPORTS MARKETER TO OBSERVE AND TEACH RELATED TO ALTERED RESPIRATORY STATUS TO MINIMIZE COMPLICATIONS AND REDUCE HOSPITALIZATION.] Future Scheduled Test ASTHMA MAN AGEMENT; RN TO ASSESS AND TEACH, BURNER TECHNICIAN/SPORTS MARKETER TO OBSERVE AND TEACH ASTHMA MANAGEMENT AND PROVIDE EARLY INTERVENTIONS TO MINIMIZE RISK OF HOSPITALIZATION [code = ASTHMA MANAGEMENT; RN TO ASSESS AND TEACH, BURNER TECHNICIAN/SPORTS MARKETER TO OBSERVE AND TEACH ASTHMA MANAGEMENT AND PROVIDE EARLY INTERVENTIONS TO MINIMIZE RISK OF HOSPITALIZATION] Future Scheduled Test RN/BURNER TECHNICIAN/SPORTS MARKETER TO PERFORM/TEACH INCISION CARE TO MIDLINE STERNUM AND LEFT FOREARM SURGICAL INCISIONS. ASSESS FOR SIGNS AND SYMPTOMS OF INFECTION EDUCATED PATIENT. LEAVE INCISIONS OPEN TO AIR. [code = RN/BURNER TECHNICIAN/SPORTS MARKETER TO PERFORM/TEACH INCISION CARE TO MIDLINE STERNUM AND LEFT FOREARM SURGICAL INCISIONS. ASSESS FOR SIGNS AND SYMPTOMS OF INFECTION EDUCATED PATIENT. LEAVE INCISIONS OPEN TO AIR.] Future Scheduled Test PAIN MANAG EMENT; RN TO ASSESS AND TEACH, SPORTS MARKETER/BURNER TECHNICIAN TO OBSERVE AND TEACH AND PROVIDE EDUCATION ON PAIN MANAGEMENT TECHNIQUES. [code = PAIN MANAGEMENT; RN TO ASSESS AND TEACH, SPORTS MARKETER/BURNER TECHNICIAN TO OBSERVE AND TEACH AND PROVIDE EDUCATION ON PAIN MANAGEMENT TECHNIQUES.] Future Scheduled Test DIABETES M ANAGEMENT; RN TO ASSESS AND TEACH, SPORTS MARKETER/BURNER TECHNICIAN TO OBSERVE AND TEACH INSTRUCTIONS OF DIABETIC CARE TO INCLUDE: DIET ADA SKIN CARE, SIGNS AND SYMPTOMS OF HYPO/HYPERGLYCEMIA, PROPER ADMINISTRATION OF DIABETIC MEDICATION. RN/SPORTS MARKETER/BURNER TECHNICIAN TO INSTRUCT ON DIABETIC FOOT CARE AND MONITOR FOR SKIN LESIONS ON LOWER EXTREMITIES. BLOOD GLUCOSE TESTING DAILY. RN TO ASSESS AND TEACH, SPORTS MARKETER/BURNER TECHNICIAN TO OBSERVE AND TEACH PATIENT/CAREGIVER ABILITY TO PERFORM AND RECORD BLOOD GLUCOSE TESTING ORDERED AND TO REPORT ABNORMAL FINDINGS TO PHYSICIAN. RN/SPORTS MARKETER/BURNER TECHNICIAN MAY PERFORM BLOOD GLUCOSE TEST NEEDED. RN/SPORTS MARKETER/BURNER TECHNICIAN TO REPORT TO PHYSICIAN BLOOD GLUCOSE READINGS GREATER THAN 300 OR LESS THAN 70. RN/SPORTS MARKETER/BURNER TECHNICIAN TO INSTRUCT PATIENT ON IMPORTANCE OF HGBA1C MONITORING, KIDNEY FUNCTION TEST, EYE AND FOOT EXAMS. [code = DIABETES MANAGEMENT; RN TO ASSESS AND TEACH, SPORTS MARKETER/BURNER TECHNICIAN TO OBSERVE AND TEACH INSTRUCTIONS OF DIABETIC CARE TO INCLUDE: DIET ADA SKIN CARE, SIGNS AND SYMPTOMS OF HYPO/HYPERGLYCEMIA, PROPER ADMINISTRATION OF DIABETIC MEDICATION. RN/SPORTS MARKETER/BURNER TECHNICIAN TO INSTRUCT ON DIABETIC FOOT CARE AND MONITOR FOR SKIN LESIONS ON LOWER EXTREMITIES. BLOOD GLUCOSE TESTING DAILY. RN TO ASSESS AND TEACH, SPORTS MARKETER/BURNER TECHNICIAN TO OBSERVE AND TEACH PATIENT/CAREGIVER ABILITY TO PERFORM AND RECORD BLOOD GLUCOSE TESTING ORDERED AND TO REPORT ABNORMAL FINDINGS TO PHYSICIAN. RN/SPORTS MARKETER/BURNER TECHNICIAN MAY PERFORM BLOOD GLUCOSE TEST NEEDED. RN/SPORTS MARKETER/BURNER TECHNICIAN TO REPORT TO PHYSICIAN BLOOD GLUCOSE READINGS GREATER THAN 300 OR LESS THAN 70. RN/SPORTS MARKETER/BURNER TECHNICIAN TO INSTRUCT PATIENT ON IMPORTANCE OF HGBA1C MONITORING, KIDNEY FUNCTION TEST, EYE AND FOOT EXAMS.] Future Scheduled Test ANEMIA MAN AGEMENT; RN TO ASSESS AND TEACH, SPORTS MARKETER/BURNER TECHNICIAN TO OBSERVE AND TEACH AND PROVIDE EDUCATION ON ANEMIA. [code = ANEMIA MANAGEMENT; RN TO ASSESS AND TEACH, SPORTS MARKETER/BURNER TECHNICIAN TO OBSERVE AND TEACH AND PROVIDE EDUCATION ON ANEMIA.] Future Scheduled Test FALL REDUC TION MANAGEMENT; RN TO ASSESS AND TEACH, BURNER TECHNICIAN/SPORTS MARKETER TO OBSERVE AND TEACH ON EDUCATION AND INTERVENTION TO IDENTIFY FALL RISK FACTORS SUCH MEDICATIONS THAT MAY CAUSE DIZZINESS, CHRONIC DISEASES, PSYCHOLOGICAL FACTORS, AND EMPOWER/EDUCATE PATIENT/CAREGIVER TO MINIMIZE FALL RISK. [code = FALL REDUCTION MANAGEMENT; RN TO ASSESS AND TEACH, BURNER TECHNICIAN/SPORTS MARKETER TO OBSERVE AND TEACH ON EDUCATION AND INTERVENTION TO IDENTIFY FALL RISK FACTORS SUCH MEDICATIONS THAT MAY CAUSE DIZZINESS, CHRONIC DISEASES, PSYCHOLOGICAL FACTORS, AND EMPOWER/EDUCATE PATIENT/CAREGIVER TO MINIMIZE FALL RISK.] Future Scheduled Test PRN VISITS ; NUMBER OF RN/BURNER TECHNICIAN/SPORTS MARKETER VISITS: 1 RN/BURNER TECHNICIAN/SPORTS MARKETER TO PERFORM: CARDIAC ASSESSMENT FOR THE FOLLOWING REASONS: COMPLICATIONS [code = PRN VISITS; NUMBER OF RN/BURNER TECHNICIAN/SPORTS MARKETER VISITS: 1 RN/BURNER TECHNICIAN/SPORTS MARKETER TO PERFORM: CARDIAC ASSESSMENT FOR THE FOLLOWING [...] 00:00:00 Outpatient NEW ADMISSION SHAKIR VARELA [facility] [id number] 2024-10-26 00:00:00 DISCHARGED /TRANSFERR ED TO A [facility]ORT[facility] PATIENT IN FACILITY AT END OF EPISODE HH ONLY - TRANSFER TO HOSPITAL 80.00
--- OUTSIDE RECORDS SUMMARY | 2024-11-25 04:23 | XMS_ITS | CONTINUITY OF CARE DOCUMENT ---
Author Name asia betancourt Address Unknown Organization [facility] Address [address] [place] [address] Phone [phone] Care Team Providers Care Cloth Brushing And Sueding Supervisor Name Role Phone Steven Sanford MD Unavailable Steven Sanford MD Unavailable [phone] INSURANCE PROVIDERS Payer name Policy type / Coverage type [place] red green party ID [place] [facility] Commercial insurance [employer] 100 [id number]
--- OUTSIDE RECORDS SUMMARY | 2024-11-25 04:23 | XMS_ITS | Encounter Summary ---
Author Organization [facility] Address [address] [place] [address] Care Team Providers Care Administrative Personal Assistant Name Role Phone Unavailable Primary Care Provider [...]
--- OUTSIDE RECORDS SUMMARY | 2024-11-25 04:23 | XMS_ITS | Clinical Summary ---
Author Organization [facility] Address [address] [place] [address]. [place], [place] [id number] [place] [id number] Care Team Providers Care Rehabilitation Aide Name Role Phone Unavailable Primary Care Provider [...]
--- OUTSIDE RECORDS SUMMARY | 2024-11-25 04:23 | XMS_ITS | Encounter Summary ---
Author Organization [facility] Address [address] [place] [address]. [place], [place] [id number] [place] [id number] Care Team Providers Care Manager Loss Prevention Name Role Phone Unavailable Primary Care Provider Unavailabl e Encounter Details Date Type Department Care Team (Late st Contact Info) Description 05/20/2016 Abstract [facility] Family & Internal Medicine [address] [id number] Marcus Leon, RN CARE MANAGER Social History Tobacco Use Types Packs/Day Years [...]
--- OUTSIDE RECORDS SUMMARY | 2024-11-25 04:23 | XMS_ITS | Clinical Summary ---
Author Organization Unknown Care Team Providers Care Director Style Name Role Phone AVELINA HENSLEY, LEONOR Unavailable Unavailable NICHOLE RN, SHAKIR Unavailable Unavailraleigh JOY LPN, COLUMBA Unavailable Unavailable MICHAEL PT, KERA Unavailable Unavailable TIN TECHNICAL TRAINING SPECIALIST, JEROD Unavailable Unavailable NICOLLE OT, MARY Unavailable Unavailable VIOLET CASTANO, SHELDON Unavailable Unavailable Payers Payer Name Policy Type Policy Number Effective Date Expira tion Date [facility].OPTUM.VACCN.PDGM.C.AUTH Problems Condition Name Condition Details Condition Category Status Onset Date Resolution Date Last Treatment Date Treating Clinician Comments ENCNTR FOR SURGICAL AFTCR FOLLOWING SURGERY ON THE CIRC SYS Active 2023-11 0- 00:00: 00 ATHSCL HEART DISEASE OF [place] CORONARY ARTERY W/O ANG PCTRS Active 2023-11 [...] CARDIAC PACEMAKER Active 2023-11 0-15 00:00: 00 [facility] (CURRENT) USE OF ORAL HYPOGLYCEMIC DRUGS Active 2023-11 00:00: 00 [facility] (CURRENT) USE OF ANTITHROMBOT ICS/ANTIPLAT ELETS Active [...] on aerosol inhaler 02-13 00:00: 00 Yes [id number] SHORTNESS OF BREATH 1 puff EVERY 6 HOURS 1 puff EVERY 6 HOURS (route: inhalation ) Med Classific ation: Respirato ry Therapy Agents aspirin 81 mg tablet,tavon yed release 02-07 00:00: 00 Yes [id number] BLOOD THINNER 1 tablet DAILY 1 tablet DAILY (route: oral) Med Classific ation: Hematolog ical Agents atorvastati n 80 mg tablet 2023-11 00:00: 00 Yes [id number] CHOLESTEROL CONTROL 1 tablet EVERY PM 1 tablet EVERY PM (route: oral) Med Classific ation: Cardiovas cular Therapy Agents carboxymeth ylcellulose sodium 0.5 % eye drops 02-14 00:00: 00 Yes [id number] DRY EYES 1 drops EVERY 6 HOURS 1 drops EVERY 6 HOURS (route: ophthalmic (eye)) Med Classific ation: Ophthalmi c Agents carvedilol 6.25 mg tablet 02-07 00:00: 00 Yes [id number] HEART FAILURE 0.5 tablet 2 TIMES DAILY 0.5 tablet 2 TIMES DAILY (route: oral) Med Classific ation: Cardiovas cular Therapy Agents clopidogrel 75 mg tablet 2023-11 00:00: 00 Yes [id number] BLOOD THINNER 1 tablet DAILY 1 tablet DAILY (route: oral) Med Classific ation: Hematolog ical Agents duloxetine 60 mg capsule,del ayed release 02-08 00:00: 00 Yes [id number] NERVE PAIN 1 capsule DAILY 1 capsule DAILY (route: oral) Med Classific ation: Central Nervous System Agents ergocalcife rol (vitamin D2) 1,250 mcg (50,000 unit) capsule 2023-11 0-16 00:00: 00 Yes [id number] SUPPLEMENT 1 capsule WEEKLY 1 capsule WEEKLY (route: oral) Med Classific ation: Electroly te Balance-N utritiona l Products ferrous sulfate 325 mg (65 mg iron) tablet 2023-11 0-16 00:00: 00 Yes [id number] ANEMIA 1 tablet DAILY 1 tablet DAILY (route: oral) Med Classific ation: Electroly te Balance-N utritiona l Products folic acid 1 mg tablet 2023-11 0-16 00:00: 00 Yes [id number] SUPPLEMENT 1 tablet DAILY 1 tablet DAILY (route: oral) Med Classific ation: Electroly te Balance-N utritiona l Products glucose 4 gram chewable tablet 3-05 00:00: 00 Yes [id number] LOW BLOOD SUGAR Per instruc tions NEEDED Per instructio ns NEEDED (route: oral) Med Classific ation: Endocrine isosorbide mononitrate ER 30 mg tablet,exte nded release 24 hr 04-11 00:00: 00 Yes [id number] CHEST PAIN CONTROL 0.5 tablet DAILY 0.5 tablet DAILY (route: oral) Med Classific ation: Cardiovas cular Therapy Agents magnesium oxide 400 mg (241.3 mg magnesium) tablet 2023-11 00:00: 00 Yes [id number] SUPPLEMENT 1 tablet 2 TIMES DAILY 1 tablet 2 TIMES DAILY (route: oral) Med Classific ation: Electroly te Balance-N utritiona l Products metformin ER 750 mg tablet,exte nded release 24 hr 2023-1116 00:00: 00 Yes [id number] BLOOD SUGAR CONTROL 1 tablet DAILY 1 tablet DAILY (route: oral) Med Classific ation: Endocrine methocarbam ol 500 mg tablet 04-11 00:00: 00 Yes [id number] MUSCLE SPASMS 1 tablet 2 TIMES DAILY 1 tablet 2 TIMES DAILY (route: oral) Med Classific ation: Locomotor System multivitami n tablet 4-09 00:00: 00 Yes [id number] SUPPLEMENT 1 tablet DAILY 1 tablet DAILY (route: oral) Med Classific ation: Electroly te Balance-N utritiona l Products omeprazole 40 mg capsule,del ayed release 04-11 00:00: 00 Yes [id number] GERD 1 capsule EVERY AM 1 capsule EVERY AM (route: oral) Med Classific ation: Gastroint estinal Therapy Agents pregabalin 100 mg capsule 2023-11 00:00: 00 Yes [id number] NERVE PAIN 1 capsule 2 TIMES DAILY [...] ACCEPT ORDERS FROM CONSULTING PHYSICIANS:DR Imelda QUAN (INSPECTOR ELECTROMECHANICAL), DR Michelle BAIRD (PCP) RN TO OBSERVE AND ASSESS, BLENDING KETTLE TENDER/COMMUNITY SERVICE WORKER TO OBSERVE FOR RISK FOR FALLS AND INSTRUCT IN FALL PREVENTION, HOME SAFETY, MEDICATION MANAGEMENT, INFECTION PREVENTION, AND NUTRITION MANAGEMENT. RN/BLENDING KETTLE TENDER/COMMUNITY SERVICE WORKER NURSE MAY PERFORM O2 SATURATION LEVEL. RN TO ASSESS/BLENDING KETTLE TENDER TO OBSERVE PATIENT, WITH NOTIFICATION TO THE PHYSICIAN IF SATURATION IS 90% IN THE ABSENCE OF MORE SPECIFIC PARAMETERS FROM THE PHYSICIAN. AGENCY MAY PERFORM A RESUMPTION OF CARE VISIT FOLLOWING ANY HOSPITAL ADMISSION. RN/BLENDING KETTLE TENDER/COMMUNITY SERVICE WORKER TO MONITOR CO-MORBID CONDITIONS LISTED ON THE PLAN OF CARE AND ANY NEW CONDITIONS THAT PRESENT THEMSELVES DURING THIS EPISODE TO IDENTIFY CHANGES AND INTERVENE TO MINIMIZE COMPLICATIONS. [code = RN TO OBSERVE, ASSESS, EVALUATE, AND DEVELOP AN INDIVIDUALIZED PLAN OF CARE. AGENCY MAY ACCEPT ORDERS FROM CONSULTING PHYSICIANS:DR Imelda QUAN (INSPECTOR ELECTROMECHANICAL), DR Michelle BAIRD (PCP) RN TO OBSERVE AND ASSESS, BLENDING KETTLE TENDER/COMMUNITY SERVICE WORKER TO OBSERVE FOR RISK FOR FALLS AND INSTRUCT IN FALL PREVENTION, HOME SAFETY, MEDICATION MANAGEMENT, INFECTION PREVENTION, AND NUTRITION MANAGEMENT. RN/BLENDING KETTLE TENDER/COMMUNITY SERVICE WORKER NURSE MAY PERFORM O2 SATURATION LEVEL. RN TO ASSESS/BLENDING KETTLE TENDER TO OBSERVE PATIENT, WITH NOTIFICATION TO THE PHYSICIAN IF SATURATION IS 90% IN THE ABSENCE OF MORE SPECIFIC PARAMETERS FROM THE PHYSICIAN. AGENCY MAY PERFORM A RESUMPTION OF CARE VISIT FOLLOWING ANY HOSPITAL ADMISSION. RN/BLENDING KETTLE TENDER/COMMUNITY SERVICE WORKER TO MONITOR CO-MORBID CONDITIONS LISTED ON THE PLAN OF CARE AND ANY NEW CONDITIONS THAT PRESENT THEMSELVES DURING THIS EPISODE TO IDENTIFY CHANGES AND INTERVENE TO MINIMIZE COMPLICATIONS.] Future Scheduled Test MEDICATION MANAGEMENT; RN/BLENDING KETTLE TENDER/COMMUNITY SERVICE WORKER TO REVIEW MEDICATIONS FOR INTERACTIONS, EFFECTIVENESS OF DRUG THERAPY, AND SIGNS/SYMPTOMS OF ADVERSE REACTIONS. MAY INSTRUCT AND REINFORCE MEDICATION TEACHING RELATED TO THE USE OF MEDICATIONS, DOSAGE, FREQUENCY, PURPOSE, SIDE EFFECTS, AND TO REPORT COMPLICATIONS. [code = MEDICATION MANAGEMENT; RN/BLENDING KETTLE TENDER/COMMUNITY SERVICE WORKER TO REVIEW MEDICATIONS FOR INTERACTIONS, EFFECTIVENESS OF DRUG THERAPY, AND SIGNS/SYMPTOMS OF ADVERSE REACTIONS. MAY INSTRUCT AND REINFORCE MEDICATION TEACHING RELATED TO THE USE OF MEDICATIONS, DOSAGE, FREQUENCY, PURPOSE, SIDE EFFECTS, AND TO REPORT COMPLICATIONS.] Future Scheduled Test ANTICOAGUL ATION MANAGEMENT; PLAVIX RN TO ASSESS AND TEACH, BLENDING KETTLE TENDER/COMMUNITY SERVICE WORKER TO OBSERVE/TEACH/MONITOR EFFECTIVENESS OF ANTICOAGULATION THERAPY. RN/BLENDING KETTLE TENDER/COMMUNITY SERVICE WORKER TO INSTRUCT ON SIGNS AND SYMPTOMS OF BLEEDING/ADVERSE REACTIONS TO REPORT TO PHYSICIAN. [code = ANTICOAGULATION MANAGEMENT; PLAVIX RN TO ASSESS AND TEACH, BLENDING KETTLE TENDER/COMMUNITY SERVICE WORKER TO OBSERVE/TEACH/MONITOR EFFECTIVENESS OF ANTICOAGULATION THERAPY. RN/BLENDING KETTLE TENDER/COMMUNITY SERVICE WORKER TO INSTRUCT ON SIGNS AND SYMPTOMS OF BLEEDING/ADVERSE REACTIONS TO REPORT TO PHYSICIAN. ] Future Scheduled Test RISK FOR H OSPITALIZATION; RN TO ASSESS/TEACH, COMMUNITY SERVICE WORKER/BLENDING KETTLE TENDER TO OBSERVE/TEACH PATIENT/CAREGIVER ON RISK FOR HOSPITALIZATION/EMERGENCY ROOM VISITS, TEACH SIGNS AND SYMPTOMS THAT PUT PATIENT AT RISK, WHEN TO NOTIFY NURSE/PHYSICIAN OF COMPLICATIONS/DECLINE, AND WHEN TO CALL 911. [code = RISK FOR HOSPITALIZATION; RN TO ASSESS/TEACH, COMMUNITY SERVICE WORKER/BLENDING KETTLE TENDER TO OBSERVE/TEACH PATIENT/CAREGIVER ON RISK FOR HOSPITALIZATION/EMERGENCY ROOM VISITS, TEACH SIGNS AND SYMPTOMS THAT PUT PATIENT AT RISK, WHEN TO NOTIFY NURSE/PHYSICIAN OF COMPLICATIONS/DECLINE, AND WHEN TO CALL 911.] Future Scheduled Test CARDIOVASC ULAR SYSTEM; RN TO ASSESS/TEACH, BLENDING KETTLE TENDER/COMMUNITY SERVICE WORKER TO OBSERVE/TEACH RELATED TO ALTERED CARDIOVASCULAR STATUS TO MINIMIZE COMPLICATIONS AND REDUCE HOSPITALIZATION. [code = CARDIOVASCULAR SYSTEM; RN TO ASSESS/TEACH, BLENDING KETTLE TENDER/COMMUNITY SERVICE WORKER TO OBSERVE/TEACH RELATED TO ALTERED CARDIOVASCULAR STATUS TO MINIMIZE COMPLICATIONS AND REDUCE HOSPITALIZATION.] Future Scheduled Test CORONARY A RTERY BYPASS GRAFT (CABG); RN TO ASSESS/TEACH, BLENDING KETTLE TENDER/COMMUNITY SERVICE WORKER TO OBSERVE/TEACH WARNING SIGNS AND SYMPTOMS TO AVOID HOSPITALIZATION. MONITOR SURGICAL INCISION SITES FOR S/S OF INFECTION. [code = CORONARY ARTERY BYPASS GRAFT (CABG); RN TO ASSESS/TEACH, BLENDING KETTLE TENDER/COMMUNITY SERVICE WORKER TO OBSERVE/TEACH WARNING SIGNS AND SYMPTOMS TO AVOID HOSPITALIZATION. MONITOR SURGICAL INCISION SITES FOR S/S OF INFECTION.] Future Scheduled Test HYPERTENSI ON MANAGEMENT; RN TO ASSESS AND TEACH, BLENDING KETTLE TENDER/COMMUNITY SERVICE WORKER TO OBSERVE AND TEACH WARNING SIGNS AND SYMPTOMS TO AVOID HOSPITALIZATION. [code = HYPERTENSION MANAGEMENT; RN TO ASSESS AND TEACH, BLENDING KETTLE TENDER/COMMUNITY SERVICE WORKER TO OBSERVE AND TEACH WARNING SIGNS AND SYMPTOMS TO AVOID HOSPITALIZATION.] Future Scheduled Test RESPIRATOR Y SYSTEM MANAGEMENT; RN TO ASSESS AND TEACH, BLENDING KETTLE TENDER/COMMUNITY SERVICE WORKER TO OBSERVE AND TEACH RELATED TO ALTERED RESPIRATORY STATUS TO MINIMIZE COMPLICATIONS AND REDUCE HOSPITALIZATION. [code = RESPIRATORY SYSTEM MANAGEMENT; RN TO ASSESS AND TEACH, BLENDING KETTLE TENDER/COMMUNITY SERVICE WORKER TO OBSERVE AND TEACH RELATED TO ALTERED RESPIRATORY STATUS TO MINIMIZE COMPLICATIONS AND REDUCE HOSPITALIZATION.] Future Scheduled Test ASTHMA MAN AGEMENT; RN TO ASSESS AND TEACH, BLENDING KETTLE TENDER/COMMUNITY SERVICE WORKER TO OBSERVE AND TEACH ASTHMA MANAGEMENT AND PROVIDE EARLY INTERVENTIONS TO MINIMIZE RISK OF HOSPITALIZATION [code = ASTHMA MANAGEMENT; RN TO ASSESS AND TEACH, BLENDING KETTLE TENDER/COMMUNITY SERVICE WORKER TO OBSERVE AND TEACH ASTHMA MANAGEMENT AND PROVIDE EARLY INTERVENTIONS TO MINIMIZE RISK OF HOSPITALIZATION] Future Scheduled Test RN/BLENDING KETTLE TENDER/COMMUNITY SERVICE WORKER TO PERFORM/TEACH INCISION CARE TO MIDLINE STERNUM AND LEFT FOREARM SURGICAL INCISIONS. ASSESS FOR SIGNS AND SYMPTOMS OF INFECTION EDUCATED PATIENT. LEAVE INCISIONS OPEN TO AIR. [code = RN/BLENDING KETTLE TENDER/COMMUNITY SERVICE WORKER TO PERFORM/TEACH INCISION CARE TO MIDLINE STERNUM AND LEFT FOREARM SURGICAL INCISIONS. ASSESS FOR SIGNS AND SYMPTOMS OF INFECTION EDUCATED PATIENT. LEAVE INCISIONS OPEN TO AIR.] Future Scheduled Test PAIN MANAG EMENT; RN TO ASSESS AND TEACH, COMMUNITY SERVICE WORKER/BLENDING KETTLE TENDER TO OBSERVE AND TEACH AND PROVIDE EDUCATION ON PAIN MANAGEMENT TECHNIQUES. [code = PAIN MANAGEMENT; RN TO ASSESS AND TEACH, COMMUNITY SERVICE WORKER/BLENDING KETTLE TENDER TO OBSERVE AND TEACH AND PROVIDE EDUCATION ON PAIN MANAGEMENT TECHNIQUES.] Future Scheduled Test DIABETES M ANAGEMENT; RN TO ASSESS AND TEACH, COMMUNITY SERVICE WORKER/BLENDING KETTLE TENDER TO OBSERVE AND TEACH INSTRUCTIONS OF DIABETIC CARE TO INCLUDE: DIET ADA SKIN CARE, SIGNS AND SYMPTOMS OF HYPO/HYPERGLYCEMIA, PROPER ADMINISTRATION OF DIABETIC MEDICATION. RN/COMMUNITY SERVICE WORKER/BLENDING KETTLE TENDER TO INSTRUCT ON DIABETIC FOOT CARE AND MONITOR FOR SKIN LESIONS ON LOWER EXTREMITIES. BLOOD GLUCOSE TESTING DAILY. RN TO ASSESS AND TEACH, COMMUNITY SERVICE WORKER/BLENDING KETTLE TENDER TO OBSERVE AND TEACH PATIENT/CAREGIVER ABILITY TO PERFORM AND RECORD BLOOD GLUCOSE TESTING ORDERED AND TO REPORT ABNORMAL FINDINGS TO PHYSICIAN. RN/COMMUNITY SERVICE WORKER/BLENDING KETTLE TENDER MAY PERFORM BLOOD GLUCOSE TEST NEEDED. RN/COMMUNITY SERVICE WORKER/BLENDING KETTLE TENDER TO REPORT TO PHYSICIAN BLOOD GLUCOSE READINGS GREATER THAN 300 OR LESS THAN 70. RN/COMMUNITY SERVICE WORKER/BLENDING KETTLE TENDER TO INSTRUCT PATIENT ON IMPORTANCE OF HGBA1C MONITORING, KIDNEY FUNCTION TEST, EYE AND FOOT EXAMS. [code = DIABETES MANAGEMENT; RN TO ASSESS AND TEACH, COMMUNITY SERVICE WORKER/BLENDING KETTLE TENDER TO OBSERVE AND TEACH INSTRUCTIONS OF DIABETIC CARE TO INCLUDE: DIET ADA SKIN CARE, SIGNS AND SYMPTOMS OF HYPO/HYPERGLYCEMIA, PROPER ADMINISTRATION OF DIABETIC MEDICATION. RN/COMMUNITY SERVICE WORKER/BLENDING KETTLE TENDER TO INSTRUCT ON DIABETIC FOOT CARE AND MONITOR FOR SKIN LESIONS ON LOWER EXTREMITIES. BLOOD GLUCOSE TESTING DAILY. RN TO ASSESS AND TEACH, COMMUNITY SERVICE WORKER/BLENDING KETTLE TENDER TO OBSERVE AND TEACH PATIENT/CAREGIVER ABILITY TO PERFORM AND RECORD BLOOD GLUCOSE TESTING ORDERED AND TO REPORT ABNORMAL FINDINGS TO PHYSICIAN. RN/COMMUNITY SERVICE WORKER/BLENDING KETTLE TENDER MAY PERFORM BLOOD GLUCOSE TEST NEEDED. RN/COMMUNITY SERVICE WORKER/BLENDING KETTLE TENDER TO REPORT TO PHYSICIAN BLOOD GLUCOSE READINGS GREATER THAN 300 OR LESS THAN 70. RN/COMMUNITY SERVICE WORKER/BLENDING KETTLE TENDER TO INSTRUCT PATIENT ON IMPORTANCE OF HGBA1C MONITORING, KIDNEY FUNCTION TEST, EYE AND FOOT EXAMS.] Future Scheduled Test ANEMIA MAN AGEMENT; RN TO ASSESS AND TEACH, COMMUNITY SERVICE WORKER/BLENDING KETTLE TENDER TO OBSERVE AND TEACH AND PROVIDE EDUCATION ON ANEMIA. [code = ANEMIA MANAGEMENT; RN TO ASSESS AND TEACH, COMMUNITY SERVICE WORKER/BLENDING KETTLE TENDER TO OBSERVE AND TEACH AND PROVIDE EDUCATION ON ANEMIA.] Future Scheduled Test FALL REDUC TION MANAGEMENT; RN TO ASSESS AND TEACH, BLENDING KETTLE TENDER/COMMUNITY SERVICE WORKER TO OBSERVE AND TEACH ON EDUCATION AND INTERVENTION TO IDENTIFY FALL RISK FACTORS SUCH MEDICATIONS THAT MAY CAUSE DIZZINESS, CHRONIC DISEASES, PSYCHOLOGICAL FACTORS, AND EMPOWER/EDUCATE PATIENT/CAREGIVER TO MINIMIZE FALL RISK. [code = FALL REDUCTION MANAGEMENT; RN TO ASSESS AND TEACH, BLENDING KETTLE TENDER/COMMUNITY SERVICE WORKER TO OBSERVE AND TEACH ON EDUCATION AND INTERVENTION TO IDENTIFY FALL RISK FACTORS SUCH MEDICATIONS THAT MAY CAUSE DIZZINESS, CHRONIC DISEASES, PSYCHOLOGICAL FACTORS, AND EMPOWER/EDUCATE PATIENT/CAREGIVER TO MINIMIZE FALL RISK.] Future Scheduled Test PRN VISITS ; NUMBER OF RN/BLENDING KETTLE TENDER/COMMUNITY SERVICE WORKER VISITS: 1 RN/BLENDING KETTLE TENDER/COMMUNITY SERVICE WORKER TO PERFORM: CARDIAC ASSESSMENT FOR THE FOLLOWING REASONS: COMPLICATIONS [code = PRN VISITS; NUMBER OF RN/BLENDING KETTLE TENDER/COMMUNITY SERVICE WORKER VISITS: 1 RN/BLENDING KETTLE TENDER/COMMUNITY SERVICE WORKER TO PERFORM: CARDIAC ASSESSMENT FOR THE FOLLOWING [...] 2024-10-26 00:00:00 Outpatient NEW ADMISSION SH[facility]IR [facility] [id number] 2024-10-26 00:00:00 DISCHARGED /TRANSFERR ED TO A SHORT-[facility] FOR [facility]PATIENT C[facility] PATIENT IN FACILITY AT END OF EPISODE HH ONLY - TRANSFER TO HOSPITAL 80.00
--- OUTSIDE RECORDS SUMMARY | 2024-11-25 04:23 | XMS_ITS | Encounter Summary ---
Author Organization [facility] Address [address] [place] [address] Care Team Providers Care Occupational Analyst Name Role Phone Unavailable Primary Care Provider Unavailabl e Encounter Details Date Type Department Care Team (Late st Contact Info) Description 02/03/2021 Orders Only [facility] - COVID Vax [address] [place] [id number] Dennis Peterson MD [address] [address] [place] [address] Need for vaccination Social History Tobacco [...]
--- OUTSIDE RECORDS SUMMARY | 2024-11-25 04:23 | XMS_ITS | Clinical Summary ---
Author Organization [facility] Address [address] [place] [address] Care Team Providers Care Edger Operator Name Role Phone Unavailable Primary Care Provider Unavailabl e Source Comments [facility],non-owned Affiliates and Associated Physician Practices is amultiple site organization consisting of ambulatory clinics and hospital sitesin [place], [place], [place] and [place]. This disclosure is being madepursuant to the Care Everywhere program and may not contain all information available regarding this patient. Last updated 18.[facility] [employer] Allergies Active Allergy Reactions Criticality Noted Date Comments Tramadol Itching 08/27/2020 Medications * Be aware that medications may not be up to date on this document. Alwaysverify current medications with the patient. Medication Sig Dispensed Refills Start Date End Date Status albuterol HFA (PROVENTIL;VENTOLIN;MS OAIR) 108 (90 Base) MCG/ACT inhaler Inhale [...] 04/23/1970 DTAP/TDAP/TD VACCINES (1 - Tdap) 1971 PNEUMOCOCCAL VACCINE 50+ (1 of 1 - PCV) 2002 ZOSTER VACCINE (1 of 2) 2002 AAA SCREENING 2017 SCREENING FOR DIABETES 08/27/2020 COVID-19 VACCINE [...] patient's age to complete this topic MENINGOCOCCAL (Group B) VACCINE Aged Out No longer eligible based on patient's age to complete this topic MENINGOCOCCAL VACCINE Aged Out No jose f pushpa eligible based on patient's age to complete this topic
--- OUTSIDE RECORDS SUMMARY | 2024-11-25 04:23 | XMS_ITS | Encounter Summary ---
Author Organization [facility] Address [address] [place] [address] Care Team Providers Care Field Assembly Supervisor Name Role Phone Unavailable Primary Care Provider Unavailabl e Reason for Visit * Reason Comments Rash Encounter Details Date Type Department Care Team (Late st Contact Info) Description 08/27/2020 3:20 PM CDT Office Visit [facility] AT [address] [address] Provider, Blanche Exp Nameevelia Scabies [...] Patient Instructions * Patient Instructions* Clarice Jimenez, LAND ACQUISITION SPECIALIST-GEOLOGICAL DRAFTER - 08/27/2020 12:45 PM CDT Help relieve itching: Your skin may continue to itch for 2 or 3 weeks, even after the scabies mitesare gone. Kwzt-ucn-eetsinv antihistamines or cortisone cream may help relieve [...] after using scabies medicine. Patient Education Scabies PHONE BANKER: Scabies is a skin condition that is [...] weeks, even after the scabies mitesare gone. Zaur-fjh-livouly antihistamines or cortisone cream may help relieve [...] ask them during your visits. ?? Copyright [employer] 2019 Information is for End User's use only and may not be sold, redistributed or otherwise used for commercial purposes. All illustrations and images included in CareNotes?? are the copyrighted property of [employer] or [employer] The above information is an educational technician only. It is not intended as medical [...] file Gets together: Not on file Attends holiness service: Not on file Active member of [...] weeks, even after the scabies mitesare gone. Rxox-iot-odcywzt antihistamines or cortisone cream may help relieve [...] 60 g Refill: 1 Clarice Jimenez DNP, INCUBATOR OPERATOR-BC 08/27/2020 5:46 PM documented in this encounter Plan of Treatment Not on file documented as of this encounter Visit Diagnoses Diagnosis Scabies- Primary documented in this encounter
--- OUTSIDE RECORDS SUMMARY | 2024-11-25 04:23 | XMS_ITS | Patient Health Summary ---
Author Organization [facility] Address [address] [place] [address] Care Team Providers Care Vp Lab Name Role Phone Unavailable Primary Care Provider Unavailabl e Note from [facility],non-owned Affiliates and Associated Physician Practices is amultiple site organization consisting of ambulatory clinics and hospital sitesin [place], [place], [place] and [place]. This disclosure is being madepursuant to the Care Everywhere program and may not contain all information available regarding this patient. Last updated 18.[facility] [employer] Allergies * Tramadol(Itching) Medications * Be aware [...]
== END 2024-11-23 13:40 | DRG 193 ==
LOC: ANHED 13:14 → ANH3MEDSUR 18:03 → ANH3MED 20:21
PROVIDERS: Nurse Practitioner Gerontology; Admitting Provider Internal Medicine; Emergency Provider Emergency Medicine; PCP Internal Medicine; Visit Provider Nurse Practitioner Adult Health
DX: J18.9 Pneumonia, unspecified organism (principal); I50.33 Acute on chronic diastolic (congestive) heart failure; E46 Unspecified protein-calorie malnutrition; J44.0 Chronic obstructive pulmonary disease with (acute) lower respiratory infection; G93.49 Other encephalopathy; G40.909 Epilepsy, unspecified, not intractable, without status epilepticus; I25.10 Atherosclerotic heart disease of native coronary artery without angina pectoris; R41.89 Other symptoms and signs involving cognitive functions and awareness; R19.5 Other fecal abnormalities; E11.9 Type 2 diabetes mellitus without complications; E87.6 Hypokalemia; E03.9 Hypothyroidism, unspecified; E78.5 Hyperlipidemia, unspecified; D64.9 Anemia, unspecified; K21.9 Gastro-esophageal reflux disease without esophagitis; I70.25 Atherosclerosis of native arteries of other extremities with ulceration; S70.312A Abrasion, left thigh, initial encounter; S90.415A Abrasion, left lesser toe(s), initial encounter; W19.XXXA Unspecified fall, initial encounter; B37.2 Candidiasis of skin and nail; E66.9 Obesity, unspecified; Z68.39 Body mass index [BMI] 39.0-39.9, adult; Z90.49 Acquired absence of other specified parts of digestive tract; Z87.891 Personal history of nicotine dependence; Z79.84 Long term (current) use of oral hypoglycemic drugs
CPT/HCPCS: 36415; 70450; 70496; 71045; 80048; 80053; 81001; 82948; 83036; 83735; 83880; 85025; 85027; 85610; 85730; 86850; 86900; 86901; 93005; 93306; 94640; 96365; 96367; 96375; 97110; 97161; 97166; 97530; 97535; 99285; A9270; G0378; J0456; J0613; J0696; J1940; J2470; J3480; J7040; Q9967

== ENCOUNTER 2024-12-21 09:54 | Emergency (ER) | payer OTHER, SELFPAY ==
[2024-12-21] VITALS (17 sets, daily range): BP systolic 82–111; BP diastolic 59–72; PULSE 78–87; RESP 18–26; TEMP 36.3; O2SAT 93–100
--- NOTE | ~2024-12-21 | XR_ITS ---
EXAMINATION: XR chest 1V portable DATE: 12/21/2024 10:33 INDICATION: Difficulty breathing. TECHNIQUE: A single frontal view of the chest was obtained. COMPARISON: Chest single view 11/18/2024 FINDINGS: There are airspace opacities in left lower lung zone. No pleural effusion or pneumothorax. The heart size is normal. There are changes of coronary artery bypass grafting. There is a left chest wall pacer with leads in the right atrium and right ventricle. IMPRESSION: 1. Worsened airspace opacities in left lower lung zone, consistent with atelectasis versus pneumonia. Reviewed, dictated and finalized at location A. 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 Worsened airspace opacities in left lower lung zone, consistent with atelect asis versus pneumonia.
--- NOTE | 2024-12-21 10:03 | ECG_ITS ---
Test Date: 2024-12-21 10:05:26 Measurements Intervals [place] Rate: 82 P: -17 NV: 127 QRS: -71 QRSD: 143 T: 113 QT: 434 QTc: 509 Interpretive Statements ELECTRONIC VENTRICULAR PACEMAKER VENTRICULAR PREMATURE COMPLEX NO FURTHER INTERPRETATION IS POSSIBLE ATYPICAL ECG BASELINE ARTIFACT- I, II, III, AVR, AVL, AVF, V1-V6 Compared to ECG 11/18/2024 13:28:55 No significant changes Electronically Signed On 12-21-2024 10:13:10 DEVELOPMENT DISABILITY SPECIALIST by Benito Amaya D.O.
--- NOTE | 2024-12-21 10:26 | PC.NURSE ---
Vascular access notified for labs/IV
--- OUTSIDE RECORDS SUMMARY | 2024-12-21 10:50 | XMS_ITS | Referral Summary ---
Author Organization [facility] Address [address] [place] [address] Care Team Providers Care Account Manager Sales Representative Name Role Phone Unavailable Primary Care Provider Unavailabl e Source Comments [facility],non-owned Affiliates and Associated Physician Practices is amultiple site organization consisting of ambulatory clinics and hospital sitesin [place], [place], [place] and [place]. This disclosure is being madepursuant to the Care Everywhere program and may not contain all information available regarding this patient. Last updated 18.[facility] [employer] Allergies Active Allergy Reactions Criticality Noted Date Comments Tramadol Itching 08/27/2020 Medications * Be aware that medications may not be up to date on this document. Alwaysverify current medications with the patient. Medication Sig Dispensed Refills Start Date End Date Status albuterol HFA (PROVENTIL;VENTOLIN;[place] OAIR) 108 (90 Base) MCG/ACT inhaler Inhale [...] 68 08/27/2020 12:39 PM CDT Temperature 36.7 C (98.1 F) 08/27/2020 12:39 PM CDT Respiratory Rate 18 08/27/2020 12:39 PM CDT Oxygen Saturation 95% 08/27/2020 12:39 PM CDT Inhaled Oxygen Concentration - - Weight 107 kg (236 lb) 08/27/2020 12:39 PM CDT Height 177.8 cm (5' 10 ) 08/27/2020 12:39 PM CDT Body Mass Index 33.86 08/27/2020 12:39 PM CDT Plan of Treatment Not on file
--- OUTSIDE RECORDS SUMMARY | 2024-12-21 10:50 | XMS_ITS | Clinical Summary ---
Author Organization [facility] Address [address] [place] [address] Care Team Providers Care Sailor Name Role Phone Unavailable Primary Care Provider Unavailabl e Source Comments [facility],non-owned Affiliates and Associated Physician Practices is amultiple site organization consisting of ambulatory clinics and hospital sitesin [place], [place], [place] and [place]. This disclosure is being madepursuant to the Care Everywhere program and may not contain all information available regarding this patient. Last updated 18.[facility] [employer] Allergies Active Allergy Reactions Criticality Noted Date Comments Tramadol Itching 08/27/2020 Medications * Be aware that medications may not be up to date on this document. Alwaysverify current medications with the patient. Medication Sig Dispensed Refills Start Date End Date Status albuterol HFA (PROVENTIL;VENTOLIN;[place] OAIR) 108 (90 Base) MCG/ACT inhaler Inhale [...]
--- OUTSIDE RECORDS SUMMARY | 2024-12-21 10:50 | XMS_ITS | Clinical Summary ---
Author Organization [facility] Address [address] [place] [address] Care Team Providers Care Apartment Hotel Manager Name Role Phone Juan Retana MD Primary Care Provider [phone] [facility], Alverto Gutierrez Unavailable Johnathan Mckee MD Unavailable [phone] Praveen Garduno MD Unavailable [phone] Allergies Active Allergy Reactions Criticality Noted [...] Type Department Care Team Description 11/15/2024 Telephone [facility] Cardiology [address] [facility] 8th [place] [address] [place] [id number] Lucy Myeer MD 10/26/2024 Telephone [facility] [place] [address] [facility] [address] [place] [id number] Praveena Garza EP-C Cardiac Rehab Navigator Follow Up Call 10/04/2024 Telephone [facility] Gastroenterology [address] [facility] [address], [address] [place] [address] Holli Palma LPN GI Preprocedure from Last 3 Months Surgical History Surgery [...] e alcohol) rare - maybe 1 beer/month [facility] Utilities Answer Date Recorded In the past 12 months has [employer], gas, oil, or water [employer] threatened to shut off services in your [...] week 09/05/2024 How often do you attend [facility] or rastafari services? Never 09/05/2024 Do you belong to any clubs o r organizations such as mu-ism groups, unions, fraternal or athletic groups, or [...] any time in the past 12 m [facility], were you homeless or living in a correction (including now)? No 09/05/2024 Personal Safety Answer Date Recorded Have you ever been in or are you currently in a harmful physical or emotional relationship or is someone making you feel afraid or unsafe? 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 Gender Identity Not on file Sexual Orientation Not on file Obstetrics History Last Filed Vital Signs Vital Sign Reading Time Taken Comments Blood Pressure 107/58 09/07/2024 11:57 AM CDT Pulse 62 09/07/2024 8:19 AM CDT Temperature 36 C (96.8 F) 09/07/2024 8:19 AM CDT Respiratory Rate 18 [...] 01/07, 08/18/2016 Medical Devices Implanted Type Area Taxonomy Teacher Device Identifier Shelf Expiration Date Model / Serial / Lot aitainment Inc Cardiac Towanda Hf 2 Chamber Df4 Inline Cnctr Is4 [id number] - [id number] - [id number] Implanted:Qty: 1 on 08/04/2024 by Lucy Meyer MD at [facility] ICD Medtronic Inc 12/22/2025 [id number] / [id number] / Medtronic Inc Sprint Quattro Secure 62cm Tripolar Screw In Extendable 3431b59 - [id number] - [id number] Implanted:Qty: 1 on 08/04/2024 by Lucy Meyer MD at [facility] Lead Medtronic Inc 04/24/2026 [id number] / [id number] / Medtronic Inc Attain Stability Quad Mri Surescan Active Fixation Lv Lead 88cm [id number] - [id number] - [id number] Implanted:Qty: 1 on 08/04/2024 by Lucy Meyer MD at [facility] Lead Medtronic Inc 04/11/2026 [id number] / [id number] / Medtronic Inc Capsurefix Novus 6.2fr 2mm 52cm Bipolar Screw In Implantable Latex Free 5076-52 - [id number] - [id number] Implanted:Qty: 1 on 08/04/2024 by Lucy Meyer MD at [facility] Lead Medtronic Inc 05/22/2026 5076-52 / [id number] / Medtronic Inc Tyrx Absorbable Antibacterial Envelope-Large 3.3x2.9in [id number] - [id number] Implanted:Qty: 1 on 08/04/2024 by Lucy Meyer MD at [facility] Other - see comments Medtronic Inc 05/25/2025 [id number] / / [id number] Description:Tyrx envelope Riggins [employer] Vinnie 10fr 7cm Biliary Stent [id number] - [id number] Implanted:Qty: 1 on 09/05/2024 by Milton Mclean MD at [facility] Stent N/A: Bile Duct Riggins [employer] Vinnie 07/24/2026 [id number] / / [id number] PowerCell [employer] Inc Suárez Flexi-Stent 5fr 3cm Small Pigtail Flexible .035in Stent 6551 - [id number] Implanted:Qty: 1 on 09/05/2024 by Milton Mclean MD at [facility] Stent N/A: Pancreas PowerCell [employer] Medical Inc 05/08/2029 6551 / / [id number] Arthrex Inc Device Closure Fibertape Sternal Cerclage Blunt Needle Ar-7289 - [id number] Implanted:Qty: 2 on 07/24/2024 by Johnathan Mckee MD at [facility] Sternum Arthrex Inc [id number] 05/07/2029 AR-7 289 / / [id number] Arthrex Inc Device Closure Fibertape Sternal Cerclage Cutting Needle Ar-7288 - [id number] Implanted:Qty: 1 on 07/24/2024 by Tala Amador MD at [facility] Sternum Arthrex Inc [id number] 05/07/2029 AR-7288 / / [id number] Reyna Biomet Inc Plate Bone Low Profile 6 Hole H Shape Sternum Ti 115.102.06 - [id number] Implanted:Qty: 2 on 07/24/2024 by Tala Amador MD at [facility] Sternum Reyna Biomet Inc 115.102. 06 / / Reyna Biomet Inc Plate Bone Low Profile 6 Hole O Shape Sternum Ti 115.104.06 - [id number] Implanted:Qty: 1 on 07/24/2024 by Tala Amador MD at [facility] Sternum Reyna [employer] Inc 115.104. 06 / / Reyna Biomet Inc Screw Bone Slf Drl Full Thread Locking 3.5x14mm Ti 100.035.14 - [id number] Implanted:Qty: 12 on 07/24/2024 by Tala Amador MD at [facility] Sternum Reyna Biomet Inc 100.035. 14 / / Reyna Biomet Inc Screw Bone Slf Drl Full Thread Locking 3.5x16mm Ti 100.035.16 - [id number] Implanted:Qty: 6 on 07/24/2024 by Tala Amador MD at [facility] Stern Reyna Biomet Inc 100.035. 16 / / Mendix Biomedical [place] Distal Marker Radiology Stainless Steel Sterile Amgm-D - [id number] Implanted:Qty: 2 on 07/24/2024 by Tala Amador MD at [facility] Heart [employer] [id number] 06/08/2027 AMGM-D / / [id number] Explanted Type Area Taxonomy Teacher Device Identifier Shelf Expiration Date Model / Serial / Lot Arthrex Inc Device Closure Fibertape Sternal Cerclage Cutting Needle Ar-7288 - [id number] Explanted:Qty: 1 on 07/24/2024 by Tala Amador MD at [facility] Stern Arthrex Inc [id number] 05/07/2029 AR-7288 / / [id number] Arthrex Inc Device Closure Fibertape Sternal Cerclage Blunt Needle Ar-7289 - [id number] Explanted:Qty: 1 on 07/24/2024 by Tala Amador MD at [facility] Stern Arthrex Inc [id number] 05/07/2029 AR-7289 / / [id number] Procedures Procedure Name Priority Date/Time Associated Diagnosis Comments EGFR Routine 09/07/2024 6:20 AM CDT LIPID PANEL Timed 07/24/2024 4:21 PM CDT POCT HEMOGLOBIN A1C Routine 07/14/2024 1 1:10 AM CDT from Last 3 Months or Most Recently Relevant to Health Maintenance Results * eGFR (09/07/2024 6:20 AM CDT) eGFR 71 >=60 mL/min/1. 73 m2 Comment: Interpretive Data Reference Interval Normal >/= 90 mL/min/1.73m2 Mildly decreased* 60 - 89 mL/min/1.73m2 Mildly to moderately decreased 45 - 59 mL/min/1.73m2 Moderately to severely decreased 30 - 44 mL/min/1.73m2 Severely decreased 15 - 29 mL/min/1.73m2 Kidney Failure < 15 mL/min/1.73m2 *Relative to young adult level Estimated glomerular [...] Mclean MD LAB BLOOD ORDERABLES Final Result [facility] [address] [place] [address] * (ABNORMAL) Lipid panel (07/24/2024 4:21 PM CDT) Cholesterol 101 30 - 199 mg/dL Comment: Interpretive Data Ages < or = 19 years Acceptable: <170 mg/dL Borderline high: 170-199 mg/dL High: >or= 200 mg/dL Ages > or = 20 years Desirable: <200 mg/dL Borderline high: 200-239 mg/dL High: >or= 240 mg/dL Literature References: 1. Expert Panel on Integrated Guidelines for Cardiovascular Health and Risk Reduction in Children and Adolescents. Pediatrics 2011;128:S213 2. NCEP Expert Panel. Circulation 2004;110:227 Current Interpretive Data was last revised on 2018. Triglycerides 100 <=149 mg/dL [facility] Comment: Interpretive Data Ages < or = 9 years Acceptable: <75 mg/dL Borderline high: 75-99 mg/dL High: >or= 100 mg/dL Ages 10 to 20 years Acceptable: <90 mg/dL Borderline high: 90-129 mg/dL High: >or= 130 mg/dL Ages > or = 20 years Desirable: <150 mg/dL Borderline high: 150-199 mg/dL High: 200-499 mg/dL Very high: >or= 499 mg/dL Literature References: 1. Expert Panel on Integrated Guidelines for Cardiovascular Health and Risk Reduction in Children and Adolescents. Pediatrics 2011;128:S213 2. NCEP Expert Panel. Circulation 2004;110:227 Current Interpretive Data was last revised on 2018. HDL 26(L) >=40 mg/dL [facility] Comment: Interpretive Data Ages < or = 19 years Acceptable: >45 mg/dL Borderline low: 40-45 mg/dL Low: <40 mg/dL Ages > or = 20 years Desirable: >or= 60 mg/dL Low: <40 mg/dL Literature References: 1. Expert Panel on Integrated Guidelines for Cardiovascular Health and Risk Reduction in Children and Adolescents. Pediatrics 2011;128:S213 2. NCEP Expert Panel. Circulation 2004;110:227 Current Interpretive Data was last revised on 2018. LDL, calculated 56 <=129 mg/dL [facility] Comment: Interpretive Data Ages < or = 19 years Acceptable: <110 mg/dL Borderline high: 110-129 mg/dL High: >or= 130 mg/dL Ages > or = 20 years Optimal: <100 mg/dL Near optimal: 100-129 mg/dL Borderline high: 130-159 mg/dL High: >160 mg/dL Calculated using the Roderick LDL-C estimating equation. This equation was implemented on 2024. Prior to this date LDL-C was estimated using the Friedewald equation. Literature References: 1. Expert Panel on Integrated Guidelines for Cardiovascular Health and Risk Reduction in Children and Adolescents. Pediatrics 2011;128:S213 2. NCEP Expert Panel. Circulation 2004;110:227 3. Roderick Talley al. ROSETTA Cardiol. 2020 March 08;5(5):540-548. doi: 10.1001/[email or web address] Current Interpretive Data was last revised on 2024. Non-HDL Cholesterol 75 mg/dL [facility] Comment: Interpretive Data Ages < or = 19 years Acceptable: <120 mg/dL Borderline high: 120-144 mg/dL High: >145 mg/dL Ages > or = 20 years When triglycerides are >200 mg/dL, Non-HDL cholesterol is a secondary target of therapy with treatment goals that are 30 mg/dL greater than the LDL cholesterol target. Literature References: 1. Expert Panel on Integrated Guidelines for Cardiovascular Health and Risk Reduction in Children and Adolescents. Pediatrics 2011;128:S213 2. NCEP Expert Panel. Circulation 2004;110:227 Current Interpretive Data was last revised on 2018. Chol/HDL ratio 4 [facility] Blood 07/24/2024 4:21 PM CDT 07/24/2024 4:34 PM CDT Johnathan Mckee MD LAB BLOOD ORDERABLES Fi nal Result Performing Organization Address [facility] [address]/[facility] Co de Phone Number [facility] [place] [address] * (ABNORMAL) POCT hemoglobin A1c (07/14/2024 11:10 AM CDT) Hgb A1C, POC 7.5(H) 4.0 - 5.6 % Est Average Gluc POC 169 mg/dL [facility] Comment: The ADA recommends reporting an estimated Average Glucose (eAG) with all Hemoglobin A1c results using the equation derived from a study of 507 normal and diabetic adults. Minority populations were underrepresented and children were not included. (Diabetes Care 31:9857-4164, 2008). The eAG is not equivalent to a fasting glucose. Blood 07/14/2024 11:1 0 AM CDT 07/14/2024 11:10 AM CDT Johnathan Mckee MD POINT OF CARE TEST ORDE DAVID Final Result Performing Organization Address [facility] [address]/[facility] Co de Phone Number [facility] [place] [address] from Last 3 Months or Most Recently Relevant to Health Maintenance Insurance [place] [facility] Advance Directives For more information, please contact: [phone] Documents on File Type Date Recorded Patient Physician Assistant Certified Expl anation ADVANCE DIRECTIVE 07/24/2024 6:30 AM Power of Frame Bender-Medical * Full Code (Latest Code Status on File) Date Activated Date Inactivated Comments 09/01/2024 6:42 PM 09/07/2024 7:11 PM * Full Code Date Activated Date Inactivated Comments 07/25/2024 3:20 AM 08/11/2024 5:02 PM Care Teams Apartment Hotel Manager Relationship Specialty Start Date End Date Juan Retana MD [address] [facility] [address] [place] [address] PCP - General Internal Medicine 07/05/24 [facility], Alverto Gutierrez [address] [place] [address] Referring Physician Cardiology 07/05/24 Johnathan Mckee MD [address] [facility] 8[address]09 [place] [address] Consulting Physician General Surgery 08/11/24 Praveen Garduno MD [address] [address] Consulting Physician General Surgery 09/07/24
--- OUTSIDE RECORDS SUMMARY | 2024-12-21 10:50 | XMS_ITS | Clinical Summary ---
Author Organization [facility] Address [address] [place] [address] Care Team Providers Care Trim Crew Supervisor Name Role Phone Unavailable Primary Care [...] (1 - 1-dose 75+ series) 2027 Meningococcal B Vaccine Aged Out No l onger eligible based on patient's age to complete this topic Meningococcal Vaccine Aged Out No jose f pushpa eligible based on patient's age to complete this topic RSV Immunizations Under 20 Months Aged Out No longer eligible based on patient's age to complete this topic
--- OUTSIDE RECORDS SUMMARY | 2024-12-21 10:50 | XMS_ITS | Patient Health Summary ---
Author Organization [facility] Address [address] [place] [address] Care Team Providers Care Lamination Builder Name Role Phone Unavailable Primary Care Provider Unavailabl e Note from [facility],non-owned Affiliates and Associated Physician Practices is amultiple site organization consisting of ambulatory clinics and hospital sitesin [place], [place], [place] and [place]. This disclosure is being madepursuant to the Care Everywhere program and may not contain all information available regarding this patient. Last updated 18.[facility] [place] [facility] Allergies * Tramadol(Itching) Medications * Be aware [...]
--- OUTSIDE RECORDS SUMMARY | 2024-12-21 10:50 | XMS_ITS | Referral Summary ---
Author Organization [facility] Address [address] [place] [address] Care Team Providers Care Head Of Integrated Media Name Role Phone Juan Retana MD Primary Care Provider [facility], Alverto Gutierrez Unavailable Johnathan Mckee MD Unavailable Praveen Garduno MD Unavailable [phone] Encounters Date Type Department Care Team Description 11/15/2024 Telephone [facility] Cardiology [address] [facility] 8th [place] [address] [place] [address] Lucy Meyer MD 10/26/2024 Telephone [facility] [place] [address] [facility] [address] [place] [address] Praveena Garza EP-C Cardiac Rehab Navigator Follow Up Call 10/04/2024 Telephone [facility] Gastroenterology [address] [facility] Medical Office [address], [address] [place] [address] Holli Palma LPN GI Preprocedure from Last 3 Months Allergies Active Allergy [...] by mouth 2 (two) times a day 02/08/20 25 Active clopidogreL (PLAVIX) 75 mg [...] e alcohol) rare - maybe 1 beer/month [employer] Answer Date Recorded In the past 12 months has [employer], gas, oil, or water company threatened [...] 09/05/2024 How often do you attend chur or worship services? Never 09/05/2024 Do you belong to any clubs o r organizations such as yarsanism groups, unions, fraternal or athletic groups, or [...] any time in the past 12 m [facility], were you homeless or living in a snf (including now)? No 09/05/2024 Personal Safety Answer Date Recorded Have you ever been in or are you currently in a harmful physical or emotional relationship or is someone making you feel afraid or unsafe? 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 Gender Identity Not on file Sexual Orientation [...] on file Medical Devices Implanted Type Area Stable Helper Device Identifier Shelf Expiration Date Model / Serial / Lot Medtronic Inc Cardiac Weston Hf 2 Chamber Df4 Inline Cnctr Is4 Desm2pj - [id number] - [id number] Implanted:Qty: 1 on 08/04/2024 by Lucy Meyer MD at [facility] ICD Medtronic Inc 12/22/2025 [id number] / [id number] / Medtronic Inc Sprint Quattro Secure 62cm Tripolar Screw In Extendable 1841b56 - [id number] - [id number] Implanted:Qty: 1 on 08/04/2024 by Lucy Meyer MD at [facility] Lead Medtronic Inc 04/24/2026 [id number] / [id number] / Medtronic Inc Attain Stability Quad Mri Surescan Active Fixation Lv Lead 88cm 544145 - [id number] - [id number] Implanted:Qty: 1 on 08/04/2024 by Lucy Meyer MD at [facility] Lead Medtronic Inc 04/11/2026 [id number] / [id number] / Medtronic Inc Capsurefix Novus 6.2fr 2mm 52cm Bipolar Screw In Implantable Latex Free 5076-52 - [id number] - [id number] Implanted:Qty: 1 on 08/04/2024 by Lucy Meyer MD at [facility] Lead Medtronic Inc 05/22/2026 5076-52 / [id number] 7V / Medtronic Inc Tyrx Absorbable Antibacterial Envelope-Large 3.3x2.9in [id number] - [id number] Implanted:Qty: 1 on 08/04/2024 by Lucy Meyer MD at [facility] Other - see comments Medtronic Inc 05/25/2025 [id number] / / [id number] Description:Tyrx envelope Lolita [employer] Vinnie 10fr 7cm Biliary Stent [id number] - [id number] Implanted:Qty: 1 on 09/05/2024 by Milton Mclean MD at [facility] Stent N/A: Bile Duct Lolita [employer] Vinnie 07/24/2026 [id number] / / [id number] Wellsphere Medical Inc Suárez Flexi-Stent 5fr 3cm Small Pigtail Flexible .035in Stent 6551 - [id number] Implanted:Qty: 1 on 09/05/2024 by Milton Mclean MD at [facility] Stent N/A: Pancreas Wellsphere Medical Inc 05/08/2029 6551 / / [id number] Arthrex Inc Device Closure Fibertape Sternal Cerclage Blunt Needle Ar-7289 - [id number] Implanted:Qty: 2 on 07/24/2024 by Johnathan Mckee MD at [facility] Sternum Arthrex Inc [id number] 05/07/2029 AR-7 289 / / [id number] Arthrex Inc Device Closure Fibertape Sternal Cerclage Cutting Needle Ar-7288 - [id number] Implanted:Qty: 1 on 07/24/2024 by Tala Amador MD at [facility] Sternum Arthrex Inc [id number] 05/07/2029 AR-7288 / / [id number] Reyna Biomet Inc Plate Bone Low Profile 6 Hole H Shape Sternum Ti 115.102.06 - [id number] Implanted:Qty: 2 on 07/24/2024 by Tala Amador MD at [facility] Sternum Reyna [employer] Inc 115.102. 06 / / Reyna Biomet Inc Plate Bone Low Profile 6 Hole O Shape Sternum Ti 115.104.06 - [id number] Implanted:Qty: 1 on 07/24/2024 by Tala Amador MD at [facility] Sternum Reyna [employer] Inc 115.104. 06 / / Reyna Biomet Inc Screw Bone Slf Drl Full Thread Locking 3.5x14mm Ti 100.035.14 - [id number] Implanted:Qty: 12 on 07/24/2024 by Tala Amador MD at [facility] Sternum Reyna [employer] Inc 100.035. 14 / / Reyna Biomet Inc Screw Bone Slf Drl Full Thread Locking 3.5x16mm Ti 100.035.16 - [id number] Implanted:Qty: 6 on 07/24/2024 by Tala Amador MD at [facility] Sternum Reyna Biomet Inc 100.035. 16 / / [employer] [place] Distal Marker Radiology Stainless Steel Sterile Am-D - [id number] Implanted:Qty: 2 on 07/24/2024 by Tala Amador MD at [facility] [employer] [id number] 06/08/2027 AM-D / / [id number] Explanted Type Area Stable Helper Device Identifier Shelf Expiration Date Model / Serial / Lot Arthrex Inc Device Closure Fibertape Sternal Cerclage Cutting Needle Ar-7288 - [id number] Explanted:Qty: 1 on 07/24/2024 by Tala Amador MD at [facility] Sternum Arthrex Inc [id number] 05/07/2029 AR-7288 / / [id number] Arthrex Inc Device Closure Fibertape Sternal Cerclage Blunt Needle Ar-7289 - [id number] Explanted:Qty: 1 on 07/24/2024 by Tala Amador MD at [facility] Sternum Arthrex Inc [id number] 05/07/2029 AR-7289 / / [id number] Procedures Procedure Name Priority Date/Time Associated Diagnosis [...] MD LAB BLOOD ORDERABLES Final Result [facility] [address] Department of Laboratories [place], [place] [id number] * (ABNORMAL) Lipid panel (07/24/2024 4:21 PM [...] revised on 2018. Triglycerides 100 <=149 mg/dL [facility] Comment: Interpretive Data Ages < or = [...] revised on 2018. HDL 26(L) >=40 mg/dL [facility] Comment: Interpretive Data Ages < or = [...] on 2018. LDL, calculated 56 <=129 mg/dL [facility] Comment: Interpretive Data Ages < or = [...] 3. Roderick Segura et al. ROSETTA Cardiol. 2019March 08;5(5):540-548. doi: [email or web address] Current Interpretive Data was last revised on 2024. Non-HDL Cholesterol 75 mg/dL [facility] Comment: Interpretive Data Ages < [...] last revised on 2018. Chol/HDL ratio 4 [facility] Blood 07/24/2024 4:21 PM CDT 07/24/2024 4:34 PM CDT Johnathan Mceke MD LAB BLOOD ORDERABLES Fi nal Result Performing Organization Address City/State/[facility] Co de Phone Number [facility] Department [place] [address] * (ABNORMAL) POCT hemoglobin A1c (07/14/2024 11:10 AM CDT) Hgb A1C, POC 7.5(H) 4.0 - 5.6 % Est Average Gluc POC 169 mg/dL [facility] Comment: The ADA recommends reporting an estimated Average Glucose (eAG) with all Hemoglobin A1c results using the equation derived from a study of 507 normal and diabetic adults. Minority populations were underrepresented and children were not included. (Diabetes Care 31:1932-4183, 2008). The eAG is not equivalent to a fasting glucose. Blood 07/14/2024 11:1 0 AM CDT 07/14/2024 11:10 AM CDT Johnathan Mckee MD POINT OF CARE TEST ORDNav HERNANDEZ Final Result [facility] Department [place] [address] from Last 3 Months or Most Recently Relevant to Health Maintenance Insurance Advance Directives For more information, please contact: [phone] Documents on File Type Date Recorded Patient Sound Ranging Crewmember Expl anation ADVANCE DIRECTIVE 07/24/2024 6:30 AM Power of Automatic Shirring Machine Operator-Medical * Full Code (Latest Code Status on File) Date Activated Date Inactivated Comments 09/01/2024 6:42 PM 09/07/2024 7:11 PM * Full Code Date Activated Date Inactivated Comments 07/25/2024 3:20 AM 08/11/2024 5:02 PM Care Teams Head Of Integrated Media Relationship Specialty Start Date End Date Juan Retana MD [address] [facility] [address] [place] [address] PCP - General Internal Medicine [facility] [address] [place] [address] Referring Physician Cardiology 07/05/24 Johnathan Mckee MD [address] [facility] 8234[address]03-09 [place] [address] Consulting Physician General Surgery 08/11/24 Praveen Garduno MD [address] [facility] [address] [place] [address] Consulting Physician General Surgery 09/07/24
[2024-12-21 11:17] LABS: Basophils Percent Auto 0.3 % (0.2-1.2); Eosinophils Absolute Auto 0.1 K/mm3 (0-0.3); Eosinophils Percent Auto 0.4 % (0-4.4); Hematocrit 28.2 % (42.0-52.0); Hemoglobin 8.7 g/dL (14.0-18.0); Immature Granulocyte Absolute 0.18 K/mm3 (0.00-0.031); Immature Granulocyte Percent A 1.4 % (0-0.5); Lymphocytes Absolute Auto 0.53 K/mm3 (0.9-3.2); Mean Corpuscular HGB Conc 30.9 g/dl (32-36); Mean Corpuscular Hemoglobin 24.9 pg (26-34); Mean Corpuscular Volume 80.6 fl (80-100); Mean Platelet Volume 9.2 fl (7.4-10.4); Monocytes Absolute Auto 0.9 K/mm3 (0.1-0.6); Monocytes Percent Auto 6.7 % (2.6-8.5); Neutrophils Absolute Auto 11.5 K/mm3 (1.3-6.7); Neutrophils Percent Auto 87.2 % (45.5-73.1); Nucleated Red Blood Cells Perc 0.2 % (0.0-0.2); Platelet Count Result 156 k/mm3 (150-375); Red Cell Distribution Width 20.8 % (11.5-14.5); White Blood Count 13.2 K/mm3 (4.5-10.0)
[2024-12-21 11:26] LABS: Lactic Acid Reflex 3.4 mmol/L (0.7-2.0)
[2024-12-21] MEDS: cefTRIAXone 2 GM/NS 100 ML 2 GM/100 ML BAG IVPB (11:27)
[2024-12-21] MEDS: LACTATED RINGERS 500 ML 999 ML IV CONT (11:27)
[2024-12-21 11:30] LABS: Anisocytosis 2+; Hypochromasia 1+; Macrocytosis 1+ (NORMAL); Ovalocytes 1+; Platelet Estimate Adequate (Adequate); Poikilocytosis 1+; Schistocytes None Seen
[2024-12-21 11:31] LABS: Alanine Aminotransferase 22 U/L (6-50); Albumin Level 2.4 g/dL (3.5-5.1); Alkaline Phosphatase 146 U/L (38-126); Anion Gap 11 mmol/L (4-12); Aspartate Amino Transferase 41 U/L (17-59); Bilirubin,Total 0.8 mg/dL (0.2-1.3); Blood Urea Nitrogen 36 mg/dL (9-20); Carbon Dioxide 22 mmol/L (22-30); Chloride 102 mmol/L (98-107); Estimated CRCL calculation 37 ml/min; Estimated Glomerular Filt Rate 41; Glucose 132 mg/dL (65-110); Potassium 3.2 mmol/L (3.4-5.0); Sodium 135 mmol/L (137-145)
[2024-12-21 11:35] LABS: NT Pro B Type Natriuretic Pept 11000 pg/mL (19.9-100)
[2024-12-21 11:45] LABS: Base Excess ABG -7.6 mEq/l (+/-2.0); Fractional Inspired Oxygen 75 %; HCO3 ABG 18.5 mEq/l (22.0-26.0); Oxygen Content ABG 13.1 %vol (16.0-22.0); Oxygen Saturation ABG 99.4 % (95.0-100.0); Oxyhemoglobin 98.9 % THb (90.0-100.0); PCO2 ABG 39.9 mmHg (35.0-45.0); PO2 ABG 225.4 mmHg (80.0-100.0); PO2 FiO2 Ratio Arterial Blood 3.01 %
[2024-12-21 11:52] LABS: Device NON-INVASIVE VENT; Non-Invasive Expiratory Pressure 8 CMH2O; Non-Invasive Inspiratory Pressure 14 CMH2O; Non-Invasive Vent Rate 16 /MIN; Site Drawn RIGHT BRACHIAL; pH ABG 7.284 (7.350-7.450)
[2024-12-21] MEDS: AZITHROMYCIN 500 MG/NS 250 ML 500 MG/250 ML BAG 250 MG IVPB (11:55)
[2024-12-21 11:58] LABS: Influenza A QL RT-PCR Negative (Negative); Influenza B QL RT-PCR Negative (Negative); RSV RNA, RT-PCR Negative (Negative); SARS-CoV-2 RNA PCR Negative (Negative)
[2024-12-21] MEDS: POTASSIUM CHLORIDE INJ 40 MEQ in SODIUM CHLORIDE 0.9% IV 500 ML 130 MEQ IVPB (12:12)
[2024-12-21] MEDS: LACTATED RINGERS 1,000 ML 999 ML IV CONT (12:12)
--- NOTE | 2024-12-21 12:37 | PC.NURSE ---
Care coordination contacted to discuss POLST form with the patient.
--- NOTE | 2024-12-21 12:57 | ED_ITS ---
HPI - SOB/Dyspnea General Chief Complaint: Shortness of Breath/Dyspnea Stated Complaint: SOB Time Seen by Provider: 12/21/24 10:03 History of Present Illness HPI Narrative: Patient presents with increased shortness of breath, he had recently been diagnosed with pneumonia and C diff, started on antibiotics. Patient denies any chest pain, abdominal pain, nausea vomiting. Does report that he is have some trouble breathing. Related Data Home Medications ?Medication ?Instructions ?Recorded ?Confirmed ?Last Taken ?Type albuterol sulfate 90 mcg/actuation 1 inh inhalation Q4H PRN shortness 11/19/24 11/19/24 Unknown History breath activated powder inhaler of breath or wheezing (ProAir RespiClick) aspirin 81 mg tablet,delayed 81 mg PO DAILY 11/19/24 11/19/24 11/18/24 History release (Adult Low Dose Aspirin) atorvastatin 80 mg tablet 80 mg PO QPM 11/19/24 11/19/24 11/17/24 History carvedilol 6.25 mg tablet 6.25 mg PO Q12H 11/19/24 11/19/24 11/18/24 History clopidogrel 75 mg tablet 75 mg PO DAILY 11/19/24 11/19/24 11/18/24 History duloxetine 60 mg capsule,delayed 60 mg PO DAILY 11/19/24 11/19/24 11/18/24 History release ferrous sulfate 325 mg (65 mg 325 mg PO DAILY 11/19/24 11/19/24 11/18/24 History iron) tablet (FeroSul) folic acid 1 mg tablet 1 mg PO DAILY 11/19/24 11/19/24 11/18/24 History ipratropium 0.5 mg-albuterol 3 mg 3 ml inhalation Q4H 11/19/24 11/19/24 11/18/24 History (2.5 mg base)/3 mL nebulization soln [id number] 2 cap PO AC 11/19/24 11/19/24 11/18/24 History 40,000-126,000-168,000 unit capsule, delay rel (Zenpep) magnesium oxide 400 mg PO DAILY 11/19/24 11/19/24 11/18/24 History metformin 750 mg tablet,extended 750 mg PO DAILY 11/19/24 11/19/24 11/18/24 History release 24 hr methocarbamol 500 mg tablet 500 mg PO Q12H PRN muscle pain 11/19/24 11/19/24 Unknown History spironolactone 25 mg tablet 25 mg PO DAILY 11/19/24 11/19/24 11/18/24 History Allergies Allergy/AdvReac Type Severity Reaction Status Date / Time tramadol AdvReac Unknown Verified 11/18/24 23:56 Review of Systems 2 Review of Systems: All systems reviewed & are unremarkable except as noted in HPI and below PMFSH Past Medical History Medical History (Updated 12/21/24 @ 13:27 by Sushila Johnson MD) Acute on chronic anemia Cognitive communication deficit Peripheral vascular disease GERD (gastroesophageal reflux disease) Coronary artery disease History of seizures Hypothyroidism Hyperlipidemia Type 2 diabetes mellitus History of congestive heart failure COPD (chronic obstructive pulmonary disease) Surgical History Surgical History (Updated 11/18/24 @ 16:27 by Matthew Tamayo MD) History of cholecystectomy Social History Social History Smoking status: Former smoker Tobacco type: cigarettes Alcohol intake: former Substance use: never Do You Feel Safe in your Home?: Yes Lack of Transportation: No Lack of Food: Never True Current Housing: I Do Not Have Housing Concerned About Future Housing: No Difficulty Paying Gas/Electric Bills: No Difficulty Paying for Meds: No Currently Unemployed: No Education: Decline to Answer Difficulty w/ Childcare or Family Care: No Spiritual care concerns: No Exam 2 Narrative: EXAMINATION OF ORGAN SYSTEMS/BODY AREAS: Constitutional: Vital signs per nursing GENERAL: Lab crackly respirations HEAD: Normal with no signs of head trauma. EYES: EOMI, conjunctiva normal ENT: Hearing grossly intact LUNGS: Tachypnea, crackles, rhonchi HEART: [Regular rate and rhythm] ABD: [Soft], [nontender to palpation] EXT: Normal range of motion SKIN: [No rashes or lesions.] NEURO: [Alert and oriented x 3. No gross focal sensory or strength deficits.] PSYCH: Normal affect Course Vital Signs Vital signs: Vital Signs Pulse Rate 84 12/21/24 10:00 Respiratory Rate 24 H 12/21/24 10:00 Pulse Oximetry 94 12/21/24 10:00 Oxygen Delivery BiPAP 12/21/24 10:00 Temperature 97.3 F L 12/21/24 10:04 Pulse Rate 87 12/21/24 11:57 Respiratory Rate 26 H 12/21/24 11:57 Blood Pressure 111/59 L 12/21/24 11:57 Pulse Oximetry 93 12/21/24 12:25 Oxygen Delivery High Flow Therapy with Nasal Cannula 12/21/24 12:25 Oxygen Flow Rate 35 12/21/24 12:25 Fraction of Inspired Oxygen 93 12/21/24 12:25 MDM - SOB/Dyspnea MDM Narrative Medical decision making narrative: Patient presents here with shortness of breath. He does have difficulty breathing, started on BiPAP, though intermittently tolerating this as he is trying to pull the mask off. I did review past medical records, including recent admission records, correction records, also called his son. He has transition to high-flow nasal cannula and seems to tolerate this better, I did have long discussion with the patient with nurse and respiratory therapist in the room, regarding his code status, he is emphatic that he does not want to be intubated, he states that he understands what can happen, he would like to try the high-flow nasal cannula, he does want chest compressions if his heart were to stop. He is alert and oriented x4 at this time and is capable of making his own medical decisions. I did review his code status from his correction from when he states it that he wanted everything done, he states that he has changed his mind. I did call his son 12:43pm and let him know, his son states that he is on his way. I have started him on antibiotics, judicious fluids given his history of heart failure. Discussed with hospitalist for admission. // Nurse alerted that he has lost pulses. Code blue initiated. CPR initiated per patient's wishes; O2 by ambubag with RT. Lost IV access; EJ placed by myself, epi given, CPR continued. Unfortunately no pulses. TOD 13:14. Son on his way. PCP updated. Lab Data 12/21/24 11:03 12/21/24 11:03 Labs: Lab Results 12/21/24 12/21/24 12/21/24 Range/Units 11:03 11:17 11:44 WBC 13.2 H (4.5-10.0) K/mm3 RBC 3.50 L (4.6-6.20) M/mm3 Hgb 8.7 L (14.0-18.0) g/dL Hct 28.2 L (42.0-52.0) % MCV 80.6 (80-100) fl MCH 24.9 L (26-34) pg MCHC 30.9 L (32-36) g/dl RDW 20.8 H (11.5-14.5) % Plt Count 156 (150-375) k/mm3 MPV 9.2 (7.4-10.4) fl Immature Gran % (Auto) 1.4 H (0-0.5) % Neut % (Auto) 87.2 H (45.5-73.1) % Lymph % (Auto) 4.0 L (18.3-44.2) % [place] % (Auto) 6.7 (2.6-8.5) % Eos % (Auto) 0.4 (0-4.4) % Baso % (Auto) 0.3 (0.2-1.2) % Lymph # (Auto) 0.53 L (0.9-3.2) K/mm3 [place] # (Auto) 0.9 H (0.1-0.6) K/mm3 Eos # (Auto) 0.1 (0-0.3) K/mm3 Baso # (Auto) 0.0 (0.0-0.1) K/mm3 Abs Immat Gran (auto) 0.18 H (0.00-0.031) K/mm3 Absolute Neuts (auto) 11.5 H (1.3-6.7) K/mm3 Absolute Nucleated RBC 0.030 H (0.0-0.012) K/mm3 Nucleated RBC % 0.2 (0.0-0.2) % Platelet Estimate Adequate (Adequate) Hypochromasia 1+ Poikilocytosis 1+ Anisocytosis 2+ Macrocytosis 1+ (NORMAL) Ovalocytes 1+ Schistocytes None seen Expiratory Pressure 8 CMH2O Inspiratory Pressure 14 CMH2O Sodium 135 L (137-145) mmol/L Potassium 3.2 L (3.4-5.0) mmol/L Chloride 102 (98-107) mmol/L Carbon Dioxide 22 (22-30) mmol/L Anion Gap 11 (4-12) mmol/L BUN 36 H D (9-20) mg/dL Creatinine 1.67 H (0.7-1.3) mg/dL Estim Creat Clear Calc 37 ml/min Estimated GFR 41 L (59 - ) Glucose 132 H (65-110) mg/dL Lactic Acid 3.4 H (0.7-2.0) mmol/L Calcium 8.0 L (8.4-10.2) mg/dL Total Bilirubin 0.8 (0.2-1.3) mg/dL AST 41 (17-59) U/L ALT 22 (6-50) U/L Alkaline Phosphatase 146 H (38-126) U/L NT-Pro-B Natriuret Pep 91053 H (19.9-100) pg/mL Total Protein 6.0 L (6.3-8.2) g/dL Albumin 2.4 L (3.5-5.1) g/dL Influenza A (RT-PCR) Negative (Negative) Influenza B (RT-PCR) Negative (Negative) RSV (RT-PCR) Negative (Negative) SARS-CoV-2 RNA (RT-PCR) Negative (Negative) ABG Data ABG results: 12/21/24 11:44 Puncture Site Right brachial ABG pH 7.284 L* ABG pCO2 39.9 ABG pO2 225.4 H ABG PO2/FiO2 Ratio 3.01 ABG HCO3 18.5 L ABG O2 Saturation 99.4 ABG O2 Content 13.1 L ABG Base Excess -7.6 A-a Gradient 267.0 Oxyhemoglobin 98.9 Total Hemoglobin 9.0 L O2 Delivery Device Non-invasive vent O2 Liters/Min Not Reportable Vent Rate 16 FiO2 75 Critical Care Time Critical Care Time Critical Care Time: Yes Total Critical Care Time: 71 Discharge Plan Discharge Clinical Impression: Acute respiratory distress, Pneumonia, Cardiopulmonary arrest Patient Disposition: Condition: Patient Language: Luxembourgish Prescriptions: No Action ProAir RespiClick 90 mcg/actuation aerosol powdr breath activated 1 inh INHALATION Q4H PRN (Reason: shortness of breath or wheezing) atorvastatin 80 mg tablet 80 mg PO QPM carvedilol 6.25 mg tablet 6.25 mg PO Q12H clopidogrel 75 mg tablet 75 mg PO DAILY duloxetine 60 mg capsule,delayed release(DR/EC) 60 mg PO DAILY folic acid 1 mg tablet 1 mg PO DAILY ipratropium-albuterol 0.5 mg-3 mg(2.5 mg base)/3 mL solution for nebulization 3 ml INHALATION Q4H Zenpep 40,000-126,000- 168,000 unit capsule,delayed release(DR/EC) 2 cap PO AC metformin 750 mg tablet extended release 24 hr 750 mg PO DAILY methocarbamol 500 mg tablet 500 mg PO Q12H PRN (Reason: muscle pain) spironolactone 25 mg tablet 25 mg PO DAILY magnesium oxide 400 mg magnesium tablet 400 mg PO DAILY ferrous sulfate [FeroSul] 325 mg (65 mg iron) tablet 325 mg PO DAILY aspirin [Adult Low Dose Aspirin] 81 mg tablet,delayed release (DR/EC) 81 mg PO DAILY bacitracin 500 unit/gram ointment 1 applic topical DAILY Qty: 28 0RF Rx Instructions: Apply to the left and right great toes. Follow-up/Referrals: Shira,MD Abiel [Primary Care Provider] -
--- NOTE | 2024-12-21 13:42 | P.PNCROSS_ITS ---
Event Note Event Note Event Note: Patient in the ED before EGG PASTEURIZER could see him.
--- NOTE | 2024-12-21 13:42 | PM.EVENT ---
Event Note Event Note Event Note: Patient in the ED before MEDICAL STAFF PHYSICIAN could see him.
[2024-12-21 14:13] LABS: Reflex Lactic Acid Yes or No Add Lactic
--- NOTE | 2024-12-21 14:24 | PC.NURSE ---
Walked into patient room at 1305 to find the patient sideways in bed, with monitor leads, pulse ox, and airvo cannula pulled off of the patient with Airvo tubing in the patients hand. called tech for help getting patient repositioned and situated in the bed. at that point patient was noted to have agonal breathing, pulses assessed, cpr started at 1306. patient had an infiltrated iv and had pulled the second iv out. an EJ was placed in the left side of the neck by Dr. Johnson, epi given per ACLS protocol. pulse checks revealed pea, playground monitor showed paced rhythm. magnet was placed on patients left chest after time of was called.
== END 2024-12-21 16:02 | disposition expired ==
PROVIDERS: Emergency Provider Emergency Medicine; PCP Internal Medicine
DX: R06.03 Acute respiratory distress (principal); J18.9 Pneumonia, unspecified organism; I46.9 Cardiac arrest, cause unspecified; Z20.822 Contact with and (suspected) exposure to COVID-19; I25.10 Atherosclerotic heart disease of native coronary artery without angina pectoris; I50.9 Heart failure, unspecified; E11.51 Type 2 diabetes mellitus with diabetic peripheral angiopathy without gangrene; I73.9 Peripheral vascular disease, unspecified; E78.5 Hyperlipidemia, unspecified; E03.9 Hypothyroidism, unspecified; K21.9 Gastro-esophageal reflux disease without esophagitis; D64.9 Anemia, unspecified; Z95.0 Presence of cardiac pacemaker; Z87.891 Personal history of nicotine dependence; Z90.49 Acquired absence of other specified parts of digestive tract; I49.3 Ventricular premature depolarization; Z79.02 Long term (current) use of antithrombotics/antiplatelets; Z79.899 Other long term (current) drug therapy; Z79.84 Long term (current) use of oral hypoglycemic drugs; Z79.82 Long term (current) use of aspirin
CPT/HCPCS: 36415; 36600; 71045; 80053; 82805; 83605; 83880; 85018; 85025; 87040; 87181; 87637; 92950; 93005; 94002; 96365; 96366; 96367; 99291; J0171; J0456; J0696; J3480; J7040; J7120